=== PATIENT | male | born 1940 | race Caucasian/White ===

== ENCOUNTER 2017-03-29 10:45 | Inpatient (IN) | payer MEDICARE, BC, SELFPAY ==
[2017-03-29] VITALS (17 sets, daily range): BP systolic 78–136; BP diastolic 50–70; PULSE 68–94; RESP 16–26; TEMP 35.1–37.4; O2SAT 92–99; BMI 28.8; BMI 29.0
--- NOTE | 2017-03-29 11:08 | RAD_ITS ---
STUDY: X-RAY CHEST REASON FOR EXAM: Male, 76 years old. Shortness of breath, COPD, status post CABG TECHNIQUE: Single AP portable view of the chest. COMPARISON: Previous study of 12/17/2016 FINDINGS: cane flume watcher leads are present. The lungs are clear and expanded. There is no demonstrated pleural abnormality. Normal size heart. Status post sternotomy changes are present. Normal mediastinum and pepito. Normal visualized pulmonary arteries. There are calcified plaques of the aortic arch. Normal visualized thoracic spine. Normal visualized ribs, clavicles, and shoulders. There is no demonstrated abnormality of the visualized soft tissue structures of the upper abdomen. RAD/Chest 1 View (Portable) IMPRESSION: Status post sternotomy. Calcified plaques of the aortic arch. No acute cardiopulmonary disease process is seen. There has been complete interval resolution of the right lower lobe infiltrate noted on the previous study. Electronically Signed: Abrahan Graham MD at 12:47 EST , Service support ,
--- NOTE | 2017-03-29 11:08 | EKG12_ITS ---
Test Reason : SOB Blood Pressure : / mmHG Vent. Rate : 063 BPM Atrial Rate : 063 BPM P-R Int : 162 ms QRS Dur : 082 ms QT Int : 402 ms P-R-T Axes : 025 048 041 degrees QTc Int : 411 ms Sinus rhythm with Premature atrial complexes in a pattern of bigeminy Otherwise normal ECG Confirmed by MICHAEL SOTO, SALAZAR ([id number]), market editor DIONICIO BOUDREAUX ([id number]) on 03/31/2017 10:47:41 AM Referred By: CALE Confirmed By:SALAZAR RODRIGUEZ MD
[2017-03-29] MEDS: Ipratropium/Albuterol Sulfate 3 ML AMPUL.NEB INHALATION ×3 (11:39→19:45)
[2017-03-29] MEDS: 0.9% Normal Saline 1,000 ML 999 ML IV ×3 (11:40→12:52)
[2017-03-29 11:45] LABS: Absolute Lymphocyte Count 0.32 X10^3/ul (0.83-4.51); Absolute Neutrophil Count 4.6 X10^3/uL (2.0-7.7); Basophil# 0.01 X10^3/uL; Basophil% 0.2 % (0-1); Hematocrit 42.2 % (40-54); Hemoglobin 13.6 g/dl (13.0-16.5); Lymphocyte # 0.32 X10^3/ul (4.0); Lymphocyte % 5.9 % (19-41); Mean Corp Hgb Conc 32.2 g/gl (32-36); Mean Corpuscular Hgb 30.6 pg (27.0-32.0); Mean Corpuscular Volume 94.8 fL (80-94); Mean Platelet Vol. 8.9 fl (6.2-12.0); Monocyte# 0.52 X10^3/uL; Monocyte% 9.5 % (0-10); Neutrophil % 84.2 % (47-70); Platelet Count 153 K/mm3 (150-450); RBC Distribution Width CV 14.8 % (11.6-14.6); RBC Distribution Width SD 51.7 fl (35.1-43.9); Red Blood Count 4.45 M/mm3 (4.6-6.2); White Blood Count 5.5 K/mm3 (4.4-11.0)
[2017-03-29 11:46] LABS: POSITIVE COUNT NO; POSITIVE DIFFERENTIAL YES; POSITIVE MORPHOLOGY NO
[2017-03-29 11:47] LABS: Differential Indicated SCAN CRITERIA MET
[2017-03-29 11:56] LABS: ALB/GLOB Ratio 1.2 RATIO (0.9-2.4); AST(SGOT) 31 U/L (15-37); Alanine Aminotransfer ALT/SGPT 33 U/L (12-78); Albumin, Serum 3.8 g/dL (3.4-5.0); Alkaline Phosphatase 73 U/L (45-117); Anion Gap 11 (5-15); BUN 19 mg/dL (7-18); BUN/Creat Ratio 11.1 RATIO (10-20); Calcium,Total 8.7 mg/dL (8.5-10.1); Chloride 106 mmol/L (98-107); Creatinine, Serum 1.71 mg/dL (0.70-1.30); EST Glomerular Filtration Rate 42 mL/min (>60); Est Glom Filt Rate - Afr Amer 51 mL/min (>60); Estimated Creatinine Clearance 40.37 ml/min; Globulin 3.3 g/dL (2.2-4.2); Glucose 138 mg/dL (70-110); Protein, Total 7.1 g/dL (6.4-8.2); Sodium Level 140 mmol/L (136-145)
[2017-03-29 12:03] LABS: Lactic Acid 2.6 mmol/L (0.4-2.0)
[2017-03-29 12:04] LABS: Differential Comment SCANNED
[2017-03-29 12:58] LABS: International Normalized Ratio 1.1
[2017-03-29 12:59] LABS: Partial Thromboplast Time 32.1 Seconds (24.1-36.2)
--- NOTE | 2017-03-29 14:04 | PCM.HP.STD ---
Problem List (1) Hypotension Status: Acute Qualifiers: Hypotension type: unspecified hypotension type Qualified Code(s): I95.9 - Hypotension, unspecified (2) Benign essential HTN Status: Chronic (3) CAD (coronary artery disease) Status: Chronic Qualifiers: Associated angina: angina presence unspecified (4) HLD (hyperlipidemia) Status: Chronic Qualifiers: Hyperlipidemia type: unspecified Qualified Code(s): E78.5 - Hyperlipidemia, unspecified (5) Prostate CA Status: Chronic History of Present Illness Date of Admission: 03/29/17 Chief Complaint: Shortness of breath, cough The patient is a 76 year old M with PMHx of prostate Ca on immunotherapy, hypertension, CAD s/p CABG, COPD on 2L nocturnal oxygen comes in with complains of shortness of breath and cough ongoing for 3 days. Patient has been on some flu medications that he bought [id number]. He admits to feeling short of breath with exertion, denies any chest pain or dizziness or palpitations or fever but has chills. Denies any dysuria or frequency or rash. In the ED, patient's vitals show temperature of 95.2, blood pressure was 78/55 respiratory rate was 16, SPO2 was 94% on room air. He later on required 2 L of nasal cannula oxygen. at time of being examined, blood pressure was 112/59, he had received 3 L of fluid. Laboratory investigations show a CBC with WBC count of 5.5, Hb 13.6, platelets 153, sodium 140, potassium 4.0, chloride 106, bicarbonate 23, creatinine 1.71 in a patient with normal creatinine, BUN of 19. Chest x-ray showed no acute cardiopulmonary disease process. Past Medical History Past Medical History (Chronic Problems): Chronic Problems Benign essential HTN (Chronic) HLD (hyperlipidemia) (Chronic) CAD (coronary artery disease) (Chronic) Prostate CA (Chronic) Allergies isosorbide [From Imdur] Allergy (Verified 03/29/17 10:51) Other Home Medications: Ambulatory Orders Medication Instructions Recorded Aspirin [Aspirin, Baby] 81 mg PO DAILY@0800 12/29/14 Atorvastatin Calcium [Lipitor] 20 mg PO QHS 12/29/14 Lisinopril [Lisinopril] 1 mg PO DAILY 12/29/14 Lorazepam [Ativan] 1 mg PO TID PRN PRN 12/29/14 Metoprolol Tartrate [Metoprolol 25 mg PO 4X/DAY 12/29/14 Tartrate] Nitroglycerin [Nitrostat] 0.4 mg SL PRN PRN 12/29/14 Albuterol Inhaler [Ventolin Hfa 2 puff INHALATION Q4H PRN PRN 04/19/16 (SP)] Clopidogrel Bisulfate [Plavix] 75 mg PO DAILY 04/19/16 Budesonide/Formoterol 160/4.5 2 puff INHALATION DAILY 07/14/16 [Symbicort 160/4.5 Mcg Inhaler (SP)] Surgical History: cataract, coronary bypass surgery Psychiatric History: No pertinent psych hx Lives: Spouse/ Significant Other Smoking Status: Former smoker Tobacco Use: Non-smoker Alcohol: None Drugs: None - *Family History Maternal History Items: Diabetes Review of Systems Constitutional: Reports: Chills, Weakness. Denies: Fever, Night Sweats, Weight Change Eyes: Denies: Blurred vision, Cataracts, Conjunctivae Inflammation, Double vision HEENT: Denies: Difficulty Hearing, Difficulty Swallowing, Head Aches, Hearing Changes, Nasal bleeding, Sinus Drainage, Sore Throat Cardiovascular: Denies: Chest Pain, Claudication, Chest Pressure, Orthopnea, Palpitations, Paroxysmal Noc. Dyspnea Respiratory: Denies: Cough, Hemoptysis, Pleuritic Pain, Shortness of breath upon exertion, Sputum production Gastrointestinal: Reports: Diarrhea - one episode in the ED. Denies: Abdominal Pain, Constipation, Hematemesis, Hematochezia, Vomiting Genitourinary: Denies: Dysuria, Frequency, Hematuria Musculoskeletal: Denies: Joint stiffness, Joint swelling, Joint Tenderness Skin: Denies: Dryness Neurological: Denies: Difficulty swallowing, Focal weakness Psychiatric: Denies: Anxiety, Depression Endocrine: Denies: Change in Body Habitus, Heat/ Cold Intolerance VTE Information - Inpt Only VTE Present on Admission: No VTE Pharm Prophylaxis ordered?: Yes Patient Problems: Active and Suspected Problems Hypotension (Acute) - Physical Exam General: Alert, Oriented x3, Cooperative, - - Obese, comfortable, lying flat HEENT: Atraumatic, PERRLA, EOMI, Normocephalic Oral: Dry Mucosa Neck: Supple Lungs: Normal air movement, Diminished, - - Barrell-shaped chest, No wheezes heard Cardiovascular: Regular rate, Regular Rhythm, Normal S1, Normal S2, No murmurs Abdomen: Bowel Sounds Present, Soft, Non Tender, Non-Distended, No Hepato-splenomegaly Extremities: No edema Skin: No rashes, No breakdown Musculoskeletal: No Tenderness to Palpation of Joints or Extremities Neurological: Cranial nerves II-XII grossly intact Psych/Mental Status: Normal Affect, Appropriate Vital Signs Temp Pulse Resp BP Pulse Ox 96.2 F L 76 18 97/67 97 03/29/17 12:46 03/29/17 14:00 03/29/17 14:00 03/29/17 14:00 03/29/17 14:00 Oxygen Flow Rate 2 Oxygen Delivery Method Room Air Weight: 93.894 kg Body Mass Index (BMI) 28.8 Laboratory Tests Past 24 Hrs 03/29/17 03/29/17 03/29/17 11:30 11:30 11:30 WBC 5.5 RBC 4.45 L Hgb 13.6 Hct 42.2 MCV 94.8 H MCH 30.6 MCHC 32.2 RDW 14.8 H RDW Differential 51.7 H Plt Count 153 MPV 8.9 Immature Gran % (Auto) 0.200 Neut % (Auto) 84.2 H Lymph % (Auto) 5.9 L [place] % (Auto) 9.5 Eos % (Auto) 0.0 Baso % (Auto) 0.2 Absolute Neuts (auto) 4.6 Absolute Lymphs (auto) 0.32 L Total Counted Not Reportable Differential Comment SCANNED PT Cancelled INR Cancelled APTT Cancelled Sodium 140 Potassium 4.0 Chloride 106 Carbon Dioxide 23.0 Anion Gap 11 BUN 19 H Creatinine 1.71 H Estim Creat Clear Calc 40.37 Est GFR (MDRD) Af Amer 51 L Est GFR (MDRD) Non-Af 42 L BUN/Creatinine Ratio 11.1 Glucose 138 H Lactic Acid Calcium 8.7 Total Bilirubin 0.50 AST 31 ALT 33 Alkaline Phosphatase 73 Troponin I Total Protein 7.1 Albumin 3.8 Globulin 3.3 Albumin/Globulin Ratio 1.2 03/29/17 03/29/17 03/29/17 11:30 11:30 12:45 WBC RBC Hgb Hct MCV MCH MCHC RDW RDW Differential Plt Count MPV Immature Gran % (Auto) Neut % (Auto) Lymph % (Auto) [place] % (Auto) Eos % (Auto) Baso % (Auto) Absolute Neuts (auto) Absolute Lymphs (auto) Total Counted Differential Comment PT 14.0 INR 1.1 APTT 32.1 Sodium Potassium Chloride Carbon Dioxide Anion Gap BUN Creatinine Estim Creat Clear Calc Est GFR (MDRD) Af Amer Est GFR (MDRD) Non-Af BUN/Creatinine Ratio Glucose Lactic Acid 2.6 H Calcium Total Bilirubin AST ALT Alkaline Phosphatase Troponin I < 0.02 Total Protein Albumin Globulin Albumin/Globulin Ratio Assessment/Plan Active and Suspected Problems Hypotension (Acute) 6 year old M with PMHx of prostate Ca on immunotherapy, hypertension, CAD s/p CABG, COPD on 2L nocturnal oxygen comes in with complains of shortness of breath and cough ongoing for 3 days. Vitals in the ED show blood pressure of 78/55, responsive to IV fluids. Patient denies any diarrhea or vomiting but has had one episode of diarrhea in the ED. 1. Shock, unclear etiology, likely related to dehydration, patient admitted to the ED with blood pressure 78/55, asymptomatic, improved to more than 110 with IV fluids, lactic acid is 2.6, no sirs criteria, unclear source of infection, EKG shows no acute ST-T changes, Plan: Admit to PCU, continue on IV fluids, monitor strict I's and O's, hold home blood pressure medications, continue to evaluate on telemetry, trend troponins, blood cultures pending 2. Acute COPD exacerbation, in a patient with known COPD on 2 L nocturnal oxygen, chest x-ray was negative for any acute cardiopulmonary process would start patient on breathing treatments with IV steroids and also ceftriaxone and azithromycin, will de-escalate antibiotics and patient continues to improve Influenza screen as well as respiratory panel screen. 3. Hypertension now hypotensive, will hold home blood pressure medication( Lisinopril, metoprolol), will continue to monitor and resume blood pressure medications when blood pressure improves 4. CAD status post CABG 17 years ago, on aspirin, statin, Plavix, lisinopril, follows with Dr. Canales in the outpatient 5. Anxiety disorder, on Lorazepam tid 6. Prostate cancer, on immunotherapy, following up with oncology in the outpatient, [facility] 7. DVT prophylaxis with heparin subcu 8. 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
[2017-03-29] MEDS: 0.45% Normal Saline 1,000 ML 150 ML IV (15:15)
--- NOTE | 2017-03-29 15:33 | ED.VISSUMM ---
- ER Visit Summary Date of Service: 03/29/17 Chief Complaint: Shortness of breath History of Present Illness: The patient is a 76 M who states that since Thursday he has had a progressive shortness of breath/dyspnea on exertion. He notes cough with sputum production. He states he is having a COPD flare. No fevers. No vomiting or diarrhea. No body aches. No headache. No URI symptoms. She has a history of COPD and coronary artery disease having had a CABG in the year 1999. He has had no chest pain. No palpitations. Physical Examination: Temperature 95.2 heart rate 75 respirations are 26 pulse ox is 94% on room air blood pressure 84/59 Gen: Well-nourished well-developed Head: Normocephalic atraumatic Eyes: Perrl EOMI ENT: TMs clear no rhinorrhea moist mucous membranes Neck: Supple no lymphadenopathy no JVD nontender CVS: Regular rate rhythm no murmurs normal S1-S2 Respiratory: Tachypnea clear to auscultation bilaterally chest nontender Abdomen: Soft nontender nondistended normal bowel sounds no masses Back: Nontender Extremity: Nontender no edema Skin: Normal color no rash Neuro: alert orientated ?3 CN II-XII intact normal strength sensation reflexes gait cerebellar Psych: Normal affect normal mood Test Results: CBC CMP with a creatinine 1.71. Lactic acid 2.6. EKG is sinus with a rate of 63. Chest x-ray negative. Emergency Department Course and Treatment: Patient is received IV fluids and his blood pressure is somewhat improved. Still tenuous. Shortly after his arrival in the emergency room he had diarrhea has not had any since. Plan is admission with continued IV fluids. After DuoNeb he is no longer short of breath. His lung sounds remain clear. I do not think he has pulmonary embolism. After 3 days he has never had any pain. I do not think that this is cardiac in nature. Impression: 1. Hypertension 2. Acute kidney injury 3. Elevated lactate This note was generated with [employer] dictation software. It may contain incorrect words, spelling, and punctuation that were not noted in review of the chart prior to signing ED Disposition - Plan for ED Patient: Disposition: Acute Care [facility] Chief Complaint: Shortness of Breath
[2017-03-29 15:36] LABS: Reflex Lactate? Y
[2017-03-29 16:22] LABS: Bacteria 0 SEEN /hpf (None Seen); Color, Urine Yellow (Yellow); Glucose, Dipstick Normal (Normal); Ketone-Dipstick Negative (Negative); Leukocyte Esterase-Dipstick Negative /ul (Negative); Mucous, Urine 0 SEEN /hpf (<or=2+); Nitrite-Dipstick Negative (Negative); Occult Blood-Urine 25 /ul (Negative); Protein-Dipstick 30 mg/dl (Negative); Urine Bilirubin Dipstick Negative (Negative); Urine Clarity Clear (Clear); Urine Urobilinogen Normal (Normal)
[2017-03-29 16:30] LABS: Red Blood Cells-Urine 0-5 SEEN /hpf (0-5); Squamous Epithelial Cells - UA 0-5 SEEN /hpf (0-5); White Blood Cells 0-5 SEEN /hpf (0-5)
[2017-03-29 16:31] LABS: Hyaline Cast 10-25 SEEN /lpf (0-5)
[2017-03-29 16:36] LABS: Lactic Acid 1.5 mmol/L (0.4-2.0)
[2017-03-29] MEDS: Atorvastatin Calcium 20 MG Tablet PO (21:22)
[2017-03-29] MEDS: Aspirin 81 MG TAB.CHEW PO (21:23)
[2017-03-29] MEDS: Clopidogrel Bisulfate 75 MG Tablet PO (21:23)
[2017-03-30] VITALS (14 sets, daily range): BP systolic 93–146; BP diastolic 62–88; PULSE 67–104; RESP 16–22; TEMP 36.4–37.1; O2SAT 94–96
[2017-03-30 02:02] LABS: Hemoglobin 11.8 g/dl (13.0-16.5); Mean Corp Hgb Conc 32.8 g/gl (32-36); Mean Corpuscular Hgb 31.3 pg (27.0-32.0); Mean Corpuscular Volume 95.5 fL (80-94); Mean Platelet Vol. 8.6 fl (6.2-12.0); Platelet Count 117 K/mm3 (150-450); RBC Distribution Width CV 14.8 % (11.6-14.6); RBC Distribution Width SD 49.3 fl (35.1-43.9); Red Blood Count 3.77 M/mm3 (4.6-6.2); White Blood Count 2.4 K/mm3 (4.4-11.0)
[2017-03-30 02:11] LABS: Scan Indicated on CBC? Y/N NO
[2017-03-30 02:33] LABS: Anion Gap 9 (5-15); BUN 18 mg/dL (7-18); BUN/Creat Ratio 15.8 RATIO (10-20); Calcium,Total 7.6 mg/dL (8.5-10.1); Chloride 110 mmol/L (98-107); Creatinine, Serum 1.14 mg/dL (0.70-1.30); EST Glomerular Filtration Rate 67 mL/min (>60); Est Glom Filt Rate - Afr Amer 81 mL/min (>60); Estimated Creatinine Clearance 60.55 ml/min; Glucose 155 mg/dL (70-110); Sodium Level 141 mmol/L (136-145)
[2017-03-30] MEDS: 0.9% NaCl Peripheral Flush Adult/Peds IV ×3 (06:07→14:58)
[2017-03-30] MEDS: Ipratropium/Albuterol Sulfate 3 ML AMPUL.NEB INHALATION ×4 (06:38→22:50)
--- NOTE | 2017-03-30 08:35 | CON.PCM_ITS ---
Problem List (1) COPD (chronic obstructive pulmonary disease) Status: Acute Qualifiers: COPD type: COPD with acute exacerbation Qualified Code(s): J44.1 - Chronic obstructive pulmonary disease with (acute) exacerbation (2) Influenza B Status: Acute (3) Benign essential HTN Status: Chronic (4) HLD (hyperlipidemia) Status: Chronic Qualifiers: Hyperlipidemia type: unspecified Qualified Code(s): E78.5 - Hyperlipidemia , unspecified (5) CAD (coronary artery disease) Status: Chronic Qualifiers: Associated angina: angina presence unspecified (6) Hypotension Status: Acute Qualifiers: Hypotension type: unspecified hypotension type Qualified Code(s): I95.9 - Hypotension, unspecified (7) Prostate CA Status: Chronic Reason for Consult Date of Consultation: 03/30/17 Reason for Consultation: hypotension History of Present Illness: The patient is a 76 year old M with past medical history as below and known to pulmonary clinic who presented to the emergency room at the request of Urgent Care with complaints of increased dyspnea on exertion and cough/congestion for the last 3-4 days. He wears chronic 2 L liters of oxygen at night, does use as needed throughout the day only when he is sick. Patient reports his symptoms and on Thursday evening with shaking chills. He denied any fevers, nausea, or vomiting. He has not had any nasal or sinus congestion or drainage from his nose. Patient reports explosive diarrhea all throughout yesterday, none since arrival. She thought maybe the diarrhea was due to taking too many OTC cold and cough medications. Patient hypotensive on arrival with a blood pressure 78/ 55, pulse 89, RR 16, temp 95.2?F per temporal artery, 94% on room air. Chest x- ray showed calcified plaques of the aortic arch, no acute cardiopulmonary disease process. Patient did later get somewhat hypoxic and was placed on 2 L of oxygen with good recovery of his saturations. The patient was given several liters of IV fluids with improvement in his blood pressure. Initial lab work showed normal white count of 5.5, hemoglobin 13.6, elevated neutrophils 84% and lymphocytes 5.9%. Coags were normal. Also had acute kidney injury with a BUN of 19 and creatinine 1.71, glucose 138, lactate elevated at 2.6 and repeat normal at 1.5. LFTs were normal. Cardiac enzymes have been negative. Urinalysis negative for infection, showed small amount of blood. Urine was sent for culture. Stool sent for C. difficile, which was negative. O&P and enteric panel are pending. Blood cultures are pending. Respiratory panel positive for influenza B. The patient was admitted to the progressive care unit for further management. He remains on 2 L of oxygen saturating at 94%. His blood pressure is improved to 138/84. He denies any significant dyspnea on exertion. Pulmonary function tests on 03/25/17 and irreversible severe large airways obstructive ventilatory defect with symmetric reduction in diffusing capacity, noted improvement compared to previous testing on 06/11/16 with significant improvement in DLCO and FEV1. Pulmonary exercise test was also performed on and showed some desaturations from 98% to as low as 93%, with no significant tachycardia. There is limitation to distance secondary to hip pain , he was able to ambulate 984 feet over the course of 6 minutes on room air with no assistive devices. Patient also participated in pulmonary rehab over the summer. Patient quit smoking about 17 years ago. 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 He has been compliant with his Symbicort at home and has been using albuterol nebulizers for the past few days with some improvement in his SOB. He denies any recent sick contacts and notes he takes precaution with avoiding people in public. He works out at the [employer] and sanitizes equipment before and after he uses it. His states he is always worried about getting sick. Past Medical History Past Medical History (Chronic Problems): Chronic Problems Benign essential HTN (Chronic) HLD (hyperlipidemia) (Chronic) CAD (coronary artery disease) (Chronic) Prostate CA (Chronic) Allergies isosorbide [From Imdur] Allergy (Verified 03/29/17 10:51) Other Home Medications: Ambulatory Orders Medication Instructions Recorded Aspirin [Aspirin, Baby] 81 mg PO DAILY@0800 12/29/14 Atorvastatin Calcium [Lipitor] 20 mg PO QHS 12/29/14 Lisinopril [Lisinopril] 1 mg PO DAILY 12/29/14 Lorazepam [Ativan] 1 mg PO TID PRN PRN 12/29/14 Metoprolol Tartrate [Metoprolol 25 mg PO 4X/DAY 12/29/14 Tartrate] Nitroglycerin [Nitrostat] 0.4 mg SL PRN PRN 12/29/14 Albuterol Inhaler [Ventolin Hfa 2 puff INHALATION Q4H PRN PRN 04/19/16 (SP)] Clopidogrel Bisulfate [Plavix] 75 mg PO DAILY 04/19/16 Budesonide/Formoterol 160/4.5 2 puff INHALATION DAILY 07/14/16 [Symbicort 160/4.5 Mcg Inhaler (SP)] Surgical History: cataract, coronary bypass surgery Psychiatric History: No pertinent psych hx Lives: Spouse/ Significant Other Smoking Status: Former smoker Tobacco Use: Non-smoker Alcohol: None Drugs: None - *Family History Maternal History Items: Diabetes Review of Systems Constitutional: Reports: Anorexia, Chills, Weakness, Weight Change - gain from prostate CA treatment, Fatigue. Denies: Fever, Night Sweats, Malaise Eyes: Denies: Vision Change HEENT: Reports: Post Nasal Drip. Denies: Difficulty Swallowing, Head Aches, Nasal bleeding, Nasal Congestion, Sinus Congestion, Sinus Drainage, Sore Throat Cardiovascular: Reports: Light Headedness - resolved. Denies: Chest Pain, Chest Tightness, Edema, Orthopnea, Palpitations, Paroxysmal Noc. Dyspnea, Syncope Respiratory: Reports: Cough, Shortness of breath upon exertion, Sputum production - white to yellow, Wheezing - occasional. Denies: Hemoptysis, Shortness of breath at rest Gastrointestinal: Reports: Diarrhea - resolved yesterday. Denies: Abdominal Pain, Constipation, Dyspepsia, Hematemesis, Hematochezia, Nausea, Melena, Vomiting Genitourinary: Reports: Frequency, Nocturia. Denies: Dysuria, Hematuria Musculoskeletal: Denies: Back Pain, Muscle pain, Neck Pain Skin: Denies: Pruritis, Rash, Wounds Neurological: Denies: Balance problems, Change in Speech, Confusion, Focal weakness, Numbness, Tingling, Tremor, Seizures Psychiatric: Denies: Anxiety, Depression, Suicidal Ideations Endocrine: Denies: Change in Body Habitus, Polydipsia, Polyuria Hematologic/ Lymphatic: Reports: Easy Bruising. Denies: Adenopathy, Anemia, Easy Bleeding, Hx of blood clot Patient Problems: Active and Suspected Problems Hypotension (Acute) COPD (chronic obstructive pulmonary disease) (Acute) Influenza B (Acute) Subjective: The patient was seen and examined, at bedside. Denies any current shortness of breath. His cough has significantly improved as well as his dyspnea on exertion. Patient has been receiving Solu-Medrol and antibiotics. He is saturating at 94% on 2 L. Reports his dizziness has resolved. He remains afebrile and hemodynamically stable. Respiratory panel just resulted for positive influenza B. Awaiting further infectious workup. Objective: Clinical Impression(s) from Imaging Studies Chest X-Ray 03/29/17 11:08 IMPRESSION: Status post sternotomy. Calcified plaques of the aortic arch. No acute cardiopulmonary disease process is seen. There has been complete interval resolution of the right lower lobe infiltrate noted on the previous study. Electronically Signed: Abrahan Graham MD at 12:47 EST , Service support , - Physical Exam General: Alert, Oriented x3, Cooperative, No apparent distress, Well developed, Well nourished HEENT: Atraumatic, Normocephalic Oral: Moist Mucosa, No Gingival or Mucosal Lesions/ Ulcerations Neck: Supple, No Nodes, Trachea Midline Lungs: - - diminished throughout, no appreciable rhonchi, wheezes, or rales. Cardiovascular: Regular rate, Regular Rhythm, Normal S1, Normal S2, No murmurs, No rub noted, No Gallop Abdomen: Bowel Sounds Present, Soft, Non Tender, Non-Distended, Obese Extremities: No clubbing, No cyanosis, No edema, Capillary Refill Less than 3 Seconds, No Calf Tenderness Skin: No rashes, No breakdown Musculoskeletal: No Tenderness to Palpation of Joints or Extremities Lymphatic: No Cervical, Supraclavicular, or Inguinal Adenopathy Neurological: Cranial nerves II-XII grossly intact, Neuro grossly intact, Motor Exam 5/5 strength throughout Psych/Mental Status: Alert and oriented to time, place, person, mood and affect Vital Signs Temp Pulse Resp BP Pulse Ox 98.7 F 85 22 H 93/62 95 03/30/17 03:05 03/30/17 06:55 03/30/17 06:38 03/30/17 03:05 03/30/17 06:38 Oxygen Flow Rate 2.5 Oxygen Delivery Method Nasal Cannula Weight: 210 lb 12.191 oz Body Mass Index (BMI) 29.0 Intake and Output for Last 24 Hours 03/28/17 03/29/17 03/30/17 23:59 23:59 23:59 Intake Total 378 / 378 1036 / 1036 Balance 378 / 378 1036 / 1036 Microbiology Past 72 Hours 03/29/17 16:05 C. difficile DNA Amplification - Final Stool 03/29/17 16:05 Stool Lactoferrin - Final Stool Laboratory Tests Past 24 Hrs 03/29/17 03/29/17 03/29/17 15:34 15:50 16:05 WBC RBC Hgb Hct MCV MCH MCHC RDW RDW Differential Plt Count MPV Sodium Potassium Chloride Carbon Dioxide Anion Gap BUN Creatinine Estim Creat Clear Calc Est GFR (MDRD) Af Amer Est GFR (MDRD) Non-Af BUN/Creatinine Ratio Glucose Lactic Acid 1.5 Calcium Troponin I < 0.02 Urine Color Yellow Urine Clarity Clear Urine pH 6.0 Ur Specific [place] 1.020 Urine Protein 30 H Urine Glucose (UA) Normal Urine Ketones Negative Urine Occult Blood 25 H Urine Nitrite Negative Urine Bilirubin Negative Urine Urobilinogen Normal Ur Leukocyte Esterase Negative Urine RBC 0-5 SEEN Urine WBC 0-5 SEEN Ur Squamous Epith Cells 0-5 SEEN Urine Bacteria 0 SEEN Hyaline Casts 10-25 SEEN Urine Mucus 0 SEEN 03/29/17 03/30/17 03/30/17 19:24 01:50 01:50 WBC 2.4 L RBC 3.77 L Hgb 11.8 L Hct 36.0 L MCV 95.5 H MCH 31.3 MCHC 32.8 RDW 14.8 H RDW Differential 49.3 H Plt Count 117 L MPV 8.6 Sodium 141 Potassium 4.0 Chloride 110 H Carbon Dioxide 22.0 Anion Gap 9 BUN 18 Creatinine 1.14 Estim Creat Clear Calc 60.55 Est GFR (MDRD) Af Amer 81 Est GFR (MDRD) Non-Af 67 BUN/Creatinine Ratio 15.8 Glucose 155 H Lactic Acid Calcium 7.6 L Troponin I < 0.02 Urine Color Urine Clarity Urine pH Ur Specific [place] Urine Protein Urine Glucose (UA) Urine Ketones Urine Occult Blood Urine Nitrite Urine Bilirubin Urine Urobilinogen Ur Leukocyte Esterase Urine RBC Urine WBC Ur Squamous Epith Cells Urine Bacteria Hyaline Casts Urine Mucus 03/30/17 01:50 WBC RBC Hgb Hct MCV MCH MCHC RDW RDW Differential Plt Count MPV Sodium Potassium Chloride Carbon Dioxide Anion Gap BUN Creatinine Estim Creat Clear Calc Est GFR (MDRD) Af Amer Est GFR (MDRD) Non-Af BUN/Creatinine Ratio Glucose Lactic Acid Calcium Troponin I < 0.02 Urine Color Urine Clarity Urine pH Ur Specific [place] Urine Protein Urine Glucose (UA) Urine Ketones Urine Occult Blood Urine Nitrite Urine Bilirubin Urine Urobilinogen Ur Leukocyte Esterase Urine RBC Urine WBC Ur Squamous Epith Cells Urine Bacteria Hyaline Casts Urine Mucus Assessment/Plan Active and Suspected Problems Hypotension (Acute) COPD (chronic obstructive pulmonary disease) (Acute) Influenza B (Acute) RECOMMENDATIONS 1. Wean oxygen supplementation to keep saturations greater than 89%. 2. Encourage incentive spirometer 3. Increase activity as tolerated 4. Continue Duoneb aerosols 5. Await infectious workup, discontinue antibiotics if negative 6. Ambulatory pulse ox prior to discharge 7. Follow-up in the pulmonary clinic in 2 weeks with ENCYCLOPEDIA RESEARCH WORKER upon discharge IMPRESSIONS 1. 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 Likely COPD exacerbation secondary to influenza, his wheezing and shortness of breath on exertion have improved with IV Solu-Medrol Steroids can likely be transitioned to oral in the morning. Continue antibiotics for now pending infectious workup, otherwise if negative can discontinue. 2. Hypotension Resolved with IV fluid resuscitation. He was orthostatic positive on admission. His blood pressure medications are being held, slowly reintroduce. 3. Chronic respiratory failure Baseline supplemental oxygen requirements of 2 L at night only. Had a recent 6 minute walking oximetry with no significant desaturations. Has been using as needed throughout the day for the last couple of days since he has been feeling ill. May require home oxygen during the day while acutely ill, patient should have a walking oximetry prior to discharge to assess for exertional hypoxia. He can follow-up in the pulmonary clinic in 2 weeks with the nurse practitioner. Thank you for the opportunity to participate in this patient's care, please do not hesitate to contact us with any further questions or concerns. This note was generated with [employer] software. It may contain incorrect words, spelling, and punctuation that were not noted in checking the note before signing.
[2017-03-30] MEDS: Aspirin 81 MG TAB.CHEW PO (09:49)
[2017-03-30] MEDS: Clopidogrel Bisulfate 75 MG Tablet PO (09:49)
--- NOTE | 2017-03-30 12:42 | PN_ITS ---
Patient Problems: Active and Suspected Problems Hypotension (Acute) COPD (chronic obstructive pulmonary disease) (Acute) Influenza B (Acute) Subjective: Chills continue. + productive cough. negative fever. SOB has improved. Uses 2lpm at home in the evening only. Has concentrator. Feels much less wheezy. - Physical Exam General: Alert, Oriented x3, Cooperative HEENT: Atraumatic, PERRLA, EOMI, Normocephalic Neck: Supple, No JVD, Negative Carotid Bruits Lungs: Clear to auscultation, Diminished - somewha Cardiovascular: Regular rate, No murmurs Abdomen: Bowel Sounds Present, Soft, Non Tender Extremities: No edema, Capillary Refill Less than 3 Seconds Skin: No rashes, No breakdown Musculoskeletal: No Tenderness to Palpation of Joints or Extremities Neurological: Cranial nerves II-XII grossly intact Psych/Mental Status: Normal Affect, Appropriate, Alert and oriented to time, place, person, mood and affect Vital Signs Temp Pulse Resp BP Pulse Ox 98 F 98 22 H 138/84 H 94 03/30/17 09:05 03/30/17 11:07 03/30/17 10:38 03/30/17 09:05 03/30/17 09:05 Oxygen Flow Rate 2 Oxygen Delivery Method Nasal Cannula Weight: 95.6 kg Body Mass Index (BMI) 29.0 Intake and Output for Last 24 Hours 03/28/17 03/29/17 03/30/17 23:59 23:59 23:59 Intake Total 378 / 378 1431 / 1431 Balance 378 / 378 1431 / 1431 Microbiology Past 72 Hours 03/29/17 15:15 Respiratory Panel (PCR) - Final Mucosa - Nasopharyngeal Influenzae B 03/29/17 16:05 C. difficile DNA Amplification - Final Stool 03/29/17 16:05 Stool Lactoferrin - Final Stool Laboratory Tests Past 24 Hrs 03/29/17 03/29/17 03/29/17 15:34 15:50 16:05 WBC RBC Hgb Hct MCV MCH MCHC RDW RDW Differential Plt Count MPV Sodium Potassium Chloride Carbon Dioxide Anion Gap BUN Creatinine Estim Creat Clear Calc Est GFR (MDRD) Af Amer Est GFR (MDRD) Non-Af BUN/Creatinine Ratio Glucose Lactic Acid 1.5 Calcium Troponin I < 0.02 Urine Color Yellow Urine Clarity Clear Urine pH 6.0 Ur Specific [place] 1.020 Urine Protein 30 H Urine Glucose (UA) Normal Urine Ketones Negative Urine Occult Blood 25 H Urine Nitrite Negative Urine Bilirubin Negative Urine Urobilinogen Normal Ur Leukocyte Esterase Negative Urine RBC 0-5 SEEN Urine WBC 0-5 SEEN Ur Squamous Epith Cells 0-5 SEEN Urine Bacteria 0 SEEN Hyaline Casts 10-25 SEEN Urine Mucus 0 SEEN 03/29/17 03/30/17 03/30/17 19:24 01:50 01:50 WBC 2.4 L RBC 3.77 L Hgb 11.8 L Hct 36.0 L MCV 95.5 H MCH 31.3 MCHC 32.8 RDW 14.8 H RDW Differential 49.3 H Plt Count 117 L MPV 8.6 Sodium 141 Potassium 4.0 Chloride 110 H Carbon Dioxide 22.0 Anion Gap 9 BUN 18 Creatinine 1.14 Estim Creat Clear Calc 60.55 Est GFR (MDRD) Af Amer 81 Est GFR (MDRD) Non-Af 67 BUN/Creatinine Ratio 15.8 Glucose 155 H Lactic Acid Calcium 7.6 L Troponin I < 0.02 Urine Color Urine Clarity Urine pH Ur Specific [place] Urine Protein Urine Glucose (UA) Urine Ketones Urine Occult Blood Urine Nitrite Urine Bilirubin Urine Urobilinogen Ur Leukocyte Esterase Urine RBC Urine WBC Ur Squamous Epith Cells Urine Bacteria Hyaline Casts Urine Mucus 03/30/17 01:50 WBC RBC Hgb Hct MCV MCH MCHC RDW RDW Differential Plt Count MPV Sodium Potassium Chloride Carbon Dioxide Anion Gap BUN Creatinine Estim Creat Clear Calc Est GFR (MDRD) Af Amer Est GFR (MDRD) Non-Af BUN/Creatinine Ratio Glucose Lactic Acid Calcium Troponin I < 0.02 Urine Color Urine Clarity Urine pH Ur Specific [place] Urine Protein Urine Glucose (UA) Urine Ketones Urine Occult Blood Urine Nitrite Urine Bilirubin Urine Urobilinogen Ur Leukocyte Esterase Urine RBC Urine WBC Ur Squamous Epith Cells Urine Bacteria Hyaline Casts Urine Mucus Assessment/Plan Active and Suspected Problems Hypotension (Acute) COPD (chronic obstructive pulmonary disease) (Acute) Influenza B (Acute) 1. Acute COPD exacerbation 2/2 Acute influenza B - start tamiflu. Continue aerosols and solumedrol. Pt significantly improved and lungs clear this AM. Will maintain abx as WBC are low. CXR without acute infiltrate. Check urine antigens. Will attempt to wean O2 and obtain ambulatory pulse ox. Pulm is following - pt of dr. Calvillo. 2. Acute sepsis 2/2 above present on admission- resolved. Pt was hypotensive, with elevated lactate and tachypnea at admission. plan to resume blood pressure meds tomorrow as his hypotension has resolved. 3. Chronic resp failure - on 2 lpm at night at home 4. HTN - stable, resume home meds tomorrow 5. CAD - s/p CABG, asa, statin, plavix currently. Pt of Dr. Whitmore 6. Anxiety - ativan 7. Hx prostate ca - on immunotherapy DVT ppx: heparin DC planning: may need increased home O2 at dc. already has concentrator. If improved tomorrow will go home. This patient was seen by Mati Nieto PA-C under the supervision of Doctor Tita.
--- NOTE | 2017-03-30 14:30 | CASEMGMT ---
See Assessment Link. DC Plan: home on dc -may need home oxygen testing and if O2 needed continuous on dc, will need to be sure pt has portable concentrator functioning well. Pt's to take to [facility] to check. Vincent WASSERMANN RN ACM
[2017-03-30] MEDS: Oseltamivir Phosphate 75 MG Capsule PO (14:58)
[2017-03-30] MEDS: Atorvastatin Calcium 20 MG Tablet PO (21:07)
[2017-03-30] MEDS: guaiFENesin 1,200 MG Tablet 1200 MG PO (21:07)
[2017-03-31] VITALS (12 sets, daily range): BP systolic 131–148; BP diastolic 80–93; PULSE 84–114; RESP 18–20; TEMP 36.6–36.8; O2SAT 87–95
[2017-03-31] MEDS: Ipratropium/Albuterol Sulfate 3 ML AMPUL.NEB INHALATION ×3 (03:00→11:05)
[2017-03-31 06:49] LABS: Absolute Neutrophil Count 2.2 X10^3/uL (2.0-7.7); Hematocrit 38.6 % (40-54); Hemoglobin 12.7 g/dl (13.0-16.5); Mean Corp Hgb Conc 32.9 g/gl (32-36); Mean Corpuscular Hgb 31.1 pg (27.0-32.0); Mean Corpuscular Volume 94.6 fL (80-94); Mean Platelet Vol. 9.2 fl (6.2-12.0); Monocyte# 0.21 X10^3/uL; Monocyte% 7.7 % (0-10); Neutrophil # 2.21 X10^3/uL (2.7-7.7); Neutrophil % 81.3 % (47-70); Platelet Count 143 K/mm3 (150-450); RBC Distribution Width CV 14.2 % (11.6-14.6); RBC Distribution Width SD 46.9 fl (35.1-43.9); Red Blood Count 4.08 M/mm3 (4.6-6.2); White Blood Count 2.7 K/mm3 (4.4-11.0)
[2017-03-31 06:51] LABS: Differential Indicated SCAN CRITERIA MET; POSITIVE COUNT NO; POSITIVE DIFFERENTIAL YES; POSITIVE MORPHOLOGY NO
[2017-03-31 06:54] LABS: Anion Gap 9 (5-15); BUN 25 mg/dL (7-18); BUN/Creat Ratio 22.7 RATIO (10-20); Calcium,Total 8.3 mg/dL (8.5-10.1); Chloride 107 mmol/L (98-107); EST Glomerular Filtration Rate 69 mL/min (>60); Est Glom Filt Rate - Afr Amer 84 mL/min (>60); Estimated Creatinine Clearance 62.75 ml/min; Glucose 147 mg/dL (70-110); Potassium 3.7 mmol/L (3.5-5.1); Sodium Level 140 mmol/L (136-145)
--- NOTE | 2017-03-31 09:08 | PCM.PROGNOTE ---
Patient Problems: Active and Suspected Problems Hypotension (Acute) COPD (chronic obstructive pulmonary disease) (Acute) Influenza B (Acute) Subjective: Patient was seen and examined, no acute events overnight. He is maintaining appropriate saturations on room air. Remains afebrile and hemodynamically stable. Reports his breathing is somewhat improved. He is still feeling weak but has been getting up to the bathroom without any dizziness or severe weakness in his legs. He is using his incentive spirometer 2-4 times per day, encouraged once every hour. Orthostatic negative, blood pressure improved. - Physical Exam General: Alert, Oriented x3, Cooperative, No apparent distress, - - Mild conversational dyspnea HEENT: Atraumatic, Normocephalic Oral: Moist Mucosa, No Gingival or Mucosal Lesions/ Ulcerations Neck: Supple, No Nodes, Trachea Midline Lungs: Diminished, - - Bibasilar rales. No appreciable wheezes or rhonchi. Cardiovascular: Regular rate, Regular Rhythm, Normal S1, Normal S2 Abdomen: Bowel Sounds Present, Soft, Non Tender, Non-Distended Extremities: No clubbing, No cyanosis, No edema Skin: No rashes, No breakdown Musculoskeletal: No Tenderness to Palpation of Joints or Extremities Lymphatic: No Cervical, Supraclavicular, or Inguinal Adenopathy Neurological: Neuro grossly intact Psych/Mental Status: Alert and oriented to time, place, person, mood and affect Vital Signs Temp Pulse Resp BP Pulse Ox 97.8 F 114 H 20 H 148/93 H 95 03/31/17 06:40 03/31/17 06:56 03/31/17 06:40 03/31/17 06:40 03/31/17 06:40 Oxygen Flow Rate 2 Oxygen Delivery Method Nasal Cannula Weight: 201 lb 15.095 oz Body Mass Index (BMI) 29.0 Orthostatic Vital Signs Start: 03/31/17 06:34 Freq: q24h Status: Active Protocol: Activity Type Activity Date Activity User E-Sign Co-Sign Detail Recorded Client Recorded Date Recorded By Document 03/31/17 06:34 [facility] [id number] 03/31/17 06:39 NORMA 03/31/17 06:34 Orthostatic Vitals Sitting -Blood Pressure (90/60-120/80) 134/89 H -Extremity Use Left Arm -Pulse Rate (60-100) 102 H Standing -Blood Pressure (90/60-120/80) 131/82 H -Extremity Use Left Arm -Pulse Rate (60-100) 110 H Lying -Blood Pressure (90/60-120/80) 148/93 H -Extremity Use Left Arm -Pulse Rate (60-100) 92 Intake and Output for Last 24 Hours 03/29/17 03/30/17 03/31/17 23:59 23:59 23:59 Intake Total 378 / 378 1671 / 1671 240 / 240 Balance 378 / 378 1671 / 1671 240 / 240 Microbiology Past 72 Hours 03/31/17 03:15 Legionella Antigen - Final Urine, Clean Catch 03/31/17 03:15 Streptococcus pneumoniae Antigen (M - Final Urine, Clean Catch 03/29/17 16:05 Enteric Bacteriology - Final Stool 03/29/17 16:05 Urine Culture - Preliminary Urine, Clean Catch Culture exhibits no growth. 03/29/17 15:15 Respiratory Panel (PCR) - Final Mucosa - Nasopharyngeal Influenzae B 03/29/17 16:05 C. difficile DNA Amplification - Final Stool 03/29/17 16:05 Stool Lactoferrin - Final Stool Laboratory Tests Past 24 Hrs 03/31/17 03/31/17 05:40 05:40 WBC 2.7 L RBC 4.08 L Hgb 12.7 L Hct 38.6 L MCV 94.6 H MCH 31.1 MCHC 32.9 RDW 14.2 RDW Differential 46.9 H Plt Count 143 L MPV 9.2 Immature Gran % (Auto) 0.000 Neut % (Auto) 81.3 H Lymph % (Auto) 11.0 L [place] % (Auto) 7.7 Eos % (Auto) 0.0 Baso % (Auto) 0.0 Absolute Neuts (auto) 2.2 Absolute Lymphs (auto) 0.30 L Total Counted Not Reportable Sodium 140 Potassium 3.7 Chloride 107 Carbon Dioxide 24.0 Anion Gap 9 BUN 25 H Creatinine 1.10 Estim Creat Clear Calc 62.75 Est GFR (MDRD) Af Amer 84 Est GFR (MDRD) Non-Af 69 BUN/Creatinine Ratio 22.7 H Glucose 147 H Calcium 8.3 L Assessment/Plan Active and Suspected Problems Hypotension (Acute) COPD (chronic obstructive pulmonary disease) (Acute) Influenza B (Acute) RECOMMENDATIONS 1. Wean oxygen supplementation to keep saturations greater than 89%. 2. Encourage incentive spirometer 3. Increase activity as tolerated 4. Continue Duoneb aerosols 5. Restart antihypertensives 6. Continue oral steroids, 12 day taper at d/c 7. Ambulatory pulse ox prior to discharge 8. Follow-up in the pulmonary clinic in 2 weeks with PATIENT ACCESS REGISTRAR upon discharge 9. Okay to discharge from pulmonary standpoint IMPRESSIONS 1. Acute hypoxic respiratory insufficiency secondary to COPD exacerbation secondary to influenza B Chest x-ray no acute process. Patient with irreversible severe large airways obstructive ventilatory defect per pulmonary function test on 03/29/17 with some noted improvement in DLCO and FEV1. Likely COPD exacerbation secondary to influenza, his wheezing and shortness of breath on exertion have improved with IV Solu-Medrol, he was transitioned to oral 03/31. Antibiotics have been discontinued. Will need 12 day taper of prednisone at discharge. 2. Hypotension/HARVEY Resolved with IV fluid resuscitation. He was orthostatic positive on admission, recheck today were negative but he did have some mild tachycardia. His blood pressure medications are being held, would restart today as BPs are now elevated for 24 hours. Notes he takes his metoprolol in 4 divided doses as he tolerates it better that way. Unsure of total dose. Management per hospitalist. 3. Chronic respiratory failure Baseline supplemental oxygen requirements of 2 L at night only. Had a recent 6 minute walking oximetry with no significant desaturations. May require home oxygen during the day while acutely ill, patient should have a walking oximetry prior to discharge to assess for exertional hypoxia. He can follow-up in the pulmonary clinic in 2 weeks with the nurse practitioner. This note was generated with [email or web address] dictation software. It may contain incorrect words, spelling, and punctuation that were not noted in checking the note before signing.
[2017-03-31] MEDS: Aspirin 81 MG TAB.CHEW PO (09:31)
[2017-03-31] MEDS: guaiFENesin 1,200 MG Tablet 1200 MG PO (09:31)
[2017-03-31] MEDS: Clopidogrel Bisulfate 75 MG Tablet PO (09:31)
--- NOTE | 2017-03-31 09:49 | PN_ITS ---
Patient Problems: Active and Suspected Problems Hypotension (Acute) COPD (chronic obstructive pulmonary disease) (Acute) Influenza B (Acute) Subjective: Patient was seen and examined, no acute events overnight. He is maintaining appropriate saturations on room air. Remains afebrile and hemodynamically stable. Reports his breathing is somewhat improved. He is still feeling weak but has been getting up to the bathroom without any dizziness or severe weakness in his legs. He is using his incentive spirometer 2-4 times per day, encouraged once every hour. Orthostatic negative, blood pressure improved. - Physical Exam General: Alert, Oriented x3, Cooperative, No apparent distress, - - Mild conversational dyspnea HEENT: Atraumatic, Normocephalic Oral: Moist Mucosa, No Gingival or Mucosal Lesions/ Ulcerations Neck: Supple, No Nodes, Trachea Midline Lungs: Diminished, - - Bibasilar rales. No appreciable wheezes or rhonchi. Cardiovascular: Regular rate, Regular Rhythm, Normal S1, Normal S2 Abdomen: Bowel Sounds Present, Soft, Non Tender, Non-Distended Extremities: No clubbing, No cyanosis, No edema Skin: No rashes, No breakdown Musculoskeletal: No Tenderness to Palpation of Joints or Extremities Lymphatic: No Cervical, Supraclavicular, or Inguinal Adenopathy Neurological: Neuro grossly intact Psych/Mental Status: Alert and oriented to time, place, person, mood and affect Vital Signs Temp Pulse Resp BP Pulse Ox 97.8 F 114 H 20 H 148/93 H 95 03/31/17 06:40 03/31/17 06:56 03/31/17 06:40 03/31/17 06:40 03/31/17 06:40 Oxygen Flow Rate 2 Oxygen Delivery Method Nasal Cannula Weight: 201 lb 15.095 oz Body Mass Index (BMI) 29.0 Orthostatic Vital Signs Start: 03/31/17 06:34 Freq: q24h Status: Active Protocol: Activity Type Activity Date Activity User E-Sign Co-Sign Detail Recorded Client Recorded Date Recorded By Document 03/31/17 06:34 [facility] [id number] 03/31/17 06:39 NORMA 03/31/17 06:34 Orthostatic Vitals Sitting -Blood Pressure (90/60-120/80) 134/89 H -Extremity Use Left Arm -Pulse Rate (60-100) 102 H Standing -Blood Pressure (90/60-120/80) 131/82 H -Extremity Use Left Arm -Pulse Rate (60-100) 110 H Lying -Blood Pressure (90/60-120/80) 148/93 H -Extremity Use Left Arm -Pulse Rate (60-100) 92 Intake and Output for Last 24 Hours 03/29/17 03/30/17 03/31/17 23:59 23:59 23:59 Intake Total 378 / 378 1671 / 1671 240 / 240 Balance 378 / 378 1671 / 1671 240 / 240 Microbiology Past 72 Hours 03/31/17 03:15 Legionella Antigen - Final Urine, Clean Catch 03/31/17 03:15 Streptococcus pneumoniae Antigen (M - Final Urine, Clean Catch 03/29/17 16:05 Enteric Bacteriology - Final Stool 03/29/17 16:05 Urine Culture - Preliminary Urine, Clean Catch Culture exhibits no growth. 03/29/17 15:15 Respiratory Panel (PCR) - Final Mucosa - Nasopharyngeal Influenzae B 03/29/17 16:05 C. difficile DNA Amplification - Final Stool 03/29/17 16:05 Stool Lactoferrin - Final Stool Laboratory Tests Past 24 Hrs 03/31/17 03/31/17 05:40 05:40 WBC 2.7 L RBC 4.08 L Hgb 12.7 L Hct 38.6 L MCV 94.6 H MCH 31.1 MCHC 32.9 RDW 14.2 RDW Differential 46.9 H Plt Count 143 L MPV 9.2 Immature Gran % (Auto) 0.000 Neut % (Auto) 81.3 H Lymph % (Auto) 11.[address] % (Auto) 7.7 Eos % (Auto) 0.0 Baso % (Auto) 0.0 Absolute Neuts (auto) 2.2 Absolute Lymphs (auto) 0.30 L Total Counted Not Reportable Sodium 140 Potassium 3.7 Chloride 107 Carbon Dioxide 24.0 Anion Gap 9 BUN 25 H Creatinine 1.10 Estim Creat Clear Calc 62.75 Est GFR (MDRD) Af Amer 84 Est GFR (MDRD) Non-Af 69 BUN/Creatinine Ratio 22.7 H Glucose 147 H Calcium 8.3 L Assessment/Plan Active and Suspected Problems Hypotension (Acute) COPD (chronic obstructive pulmonary disease) (Acute) Influenza B (Acute) RECOMMENDATIONS 1. Wean oxygen supplementation to keep saturations greater than 89%. 2. Encourage incentive spirometer 3. Increase activity as tolerated 4. Continue Duoneb aerosols 5. Restart antihypertensives 6. Continue oral steroids, 12 day taper at d/c 7. Ambulatory pulse ox prior to discharge 8. Follow-up in the pulmonary clinic in 2 weeks with DIALYSIS CHIEF EQUIPMENT TECHNICIAN upon discharge 9. Okay to discharge from pulmonary standpoint IMPRESSIONS 1. Acute hypoxic respiratory insufficiency secondary to COPD exacerbation secondary to influenza B Chest x-ray no acute process. Patient with irreversible severe large airways obstructive ventilatory defect per pulmonary function test on 03/29/17 with some noted improvement in DLCO and FEV1. Likely COPD exacerbation secondary to influenza, his wheezing and shortness of breath on exertion have improved with IV Solu-Medrol, he was transitioned to oral 03/31. Antibiotics have been discontinued. Will need 12 day taper of prednisone at discharge. 2. Hypotension/HARVEY Resolved with IV fluid resuscitation. He was orthostatic positive on admission , recheck today were negative but he did have some mild tachycardia. His blood pressure medications are being held, would restart today as BPs are now elevated for 24 hours. Notes he takes his metoprolol in 4 divided doses as he tolerates it better that way. Unsure of total dose. Management per hospitalist. 3. Chronic respiratory failure Baseline supplemental oxygen requirements of 2 L at night only. Had a recent 6 minute walking oximetry with no significant desaturations. May require home oxygen during the day while acutely ill, patient should have a walking oximetry prior to discharge to assess for exertional hypoxia. He can follow-up in the pulmonary clinic in 2 weeks with the nurse practitioner. This note was generated with [employer] dictation software. It may contain incorrect words, spelling, and punctuation that were not noted in checking the note before signing.
--- NOTE | 2017-03-31 10:00 | CASEMGMT ---
Per Salomon HOPE, pt to be home on increased oxygen. Per JOE notes, pt was on 2 liters at night only and no oxygen during day. New order for 2 liters with qualifying documentation faxed to [facility] [place] at this [place]. Spoke with Darleen at [facility] [place] and she states that pt already qualified for oxygen 24/7 months ago and states that pt has all the equipment he needs at home at this time. Amy SCHAFER aware, voices understanding. Pt to be discharged home. to bring pt's portable tank for pt to go home on. Cathie SCHAFER CM
--- NOTE | 2017-03-31 11:30 | PCM.DC ---
- Discharge Diagnoses Current Active Problems: Current Active and Chronic Problems Hypotension (Acute) Prostate CA (Chronic) COPD (chronic obstructive pulmonary disease) (Acute) Influenza B (Acute) You will use the following diet at home:: Cardiac Your food should be the consistency of: Regular Your liquids should be the consistency of: Regular/Thin Discharge Activity: Return to Normal Activity Allergies/Adverse Reactions: Allergies isosorbide [From Imdur] Allergy (Verified 03/29/17 10:51) Other Medications to take at Discharge Aspirin [Aspirin, Baby] 81 mg PO DAILY@0800 12/29/14 Atorvastatin Calcium [Lipitor] 20 mg PO QHS 12/29/14 Lisinopril 1 mg PO DAILY 12/29/14 Lorazepam [Ativan] 1 mg PO TID PRN PRN 12/29/14 Metoprolol Tartrate 25 mg PO 4X/DAY 12/29/14 Nitroglycerin [Nitrostat] 0.4 mg SL PRN PRN 12/29/14 Albuterol Inhaler [Ventolin Hfa] 2 puff INHALATION Q4H PRN PRN 04/19/16 Clopidogrel Bisulfate [Plavix] 75 mg PO DAILY 04/19/16 Budesonide/Formoterol 160/4.5 [Symbicort 160/4.5 Mcg Inhaler (SP)] 2 puff INHALATION DAILY 07/14/16 Prednisone 10 mg PO UD #26 tab 03/31/17 The following prescriptions were given: Prednisone 10 mg PO UD #26 tab Primary Care Physician: Dillan Cummins MD [Primary Care Provider] - Please follow up with your Primary Care Physician in: 2 weeks Please Follow Up With: Joshua Guadarrama MD - Keep your current April appointment with Dr. Guadarrama. When: as directed Proposed Discharge Date: 03/31/17
--- NOTE | 2017-03-31 18:11 | DS.PCM_ITS ---
Discharge Date and Diagnosis Date of Admission: 03/29/17 Date of Discharge: 03/31/17 - Primary Discharge Diagnosis Acute sepsis 2/2 acute influenza B bronchitis Acute hypoxia 2/2 acute COPD exacerbation 2/2 influenza B Chronic respiratory failure HTN CAD Anxiety Prostate cancer. - Secondary Discharge Diagnosis Chronic Problems Benign essential HTN (Chronic) HLD (hyperlipidemia) (Chronic) CAD (coronary artery disease) (Chronic) Prostate CA (Chronic) Hospital Course and Treatment Imaging Results: RAD/Chest 1 View (Portable) IMPRESSION: Status post sternotomy. Calcified plaques of the aortic arch. No acute cardiopulmonary disease process is seen. There has been complete interval resolution of the right lower lobe infiltrate noted on the previous study. Rajinder - Pulmonology Operations: None Procedures: None Summary of Care Provided: Physical exam on day of discharge: General: Resting comfortably NAD Psych: A/Ox3 normal affect HEENT: PEARRLA AT NC Neck: Supple NT CV: RRR no m/t/r/g/h Resp: CTA Abd: [id number] Soft NT no guarding or rigidity Ext: DP2+= no edema Skin: W/D normal turgor Lymph/Heme: No active bleeding or adenopathy Neuro: CN2-12 intact Hospital course: The patient is a 76 year old M who presents to the emergency room with increased shortness of breath, cough, wheezing for 3 days prior to admission. He has a history of COPD and is followed by Dr. Calvillo from pulmonology, he has a history of chronic hypoxic respiratory failure dependent on oxygen 2 L at night although notably is supposed to be also using during the day but he has not been. In the emergency room he was found to be hypotensive with systolic blood pressure in the 70s although this did respond to fluid resuscitation. He had an elevated lactic acid at 2.6, he is found to be very wheezy. Checks x- ray revealed no acute process. He is felt to have a COPD exacerbation. A rapid influenza screen was done did demonstrate influenza B. With hypotension, elevated lactate, pulse greater than 90, tachypnea, and source of infection being influenza B bronchitis he was admitted with acute sepsis secondary to influenza B with hypoxia and COPD exacerbation. He was placed on steroids. Initially he was placed on antibiotics. These were discontinued the following day as no bacterial process was suspected. The following day the patient had clear lungs, decreased wheezing, decreased oxygen demand, he remained stable on 2 L. Tamiflu was initially started however discontinued as his symptoms have been going on for about 3 days prior and pulmonology did not feel there be any benefit. Pulmonology followed the patient while here. He was transitioned to PO prednisone and given a tapering course. He was walked and determined to need further O2 requirements than just at night, and would need O2 during the day and with ambulation. This was arranged, and he already had a portable tank and concentrator. He also has a nebulizer with and his had filled a new script for aerosols for it the morning of discharge. He was discharged home in stable condition will need to keep his follow-up appointment with Dr. Calvillo in pulmonary clinic. He is also follow-up with his PCP in 1-2 weeks. He will complete his steroid taper and continue his home aerosols. This patient was seen by Mati Nieto PA-C under the supervision of Doctor Tita. Discharge Diet: Low fat/ Low Cholesterol, 4000 mg Sodium Diet Discharge Activity: Return to Normal Activity Home Medications: Medications to take at Discharge Aspirin [Aspirin, Baby] 81 mg PO DAILY@0800 12/29/14 Atorvastatin Calcium [Lipitor] 20 mg PO QHS 12/29/14 Lisinopril 1 mg PO DAILY 12/29/14 Lorazepam [Ativan] 1 mg PO TID PRN PRN 12/29/14 Metoprolol Tartrate 25 mg PO 4X/DAY 12/29/14 Nitroglycerin [Nitrostat] 0.4 mg SL PRN PRN 12/29/14 Albuterol Inhaler [Ventolin Hfa] 2 puff INHALATION Q4H PRN PRN 04/19/16 Clopidogrel Bisulfate [Plavix] 75 mg PO DAILY 04/19/16 Budesonide/Formoterol 160/4.5 [Symbicort 160/4.5 Mcg Inhaler (SP)] 2 puff INHALATION DAILY 07/14/16 Prednisone 10 mg PO UD #26 tab 03/31/17 Following Prescrptions Were Given to Patient: Prednisone 10 mg PO UD #26 tab Primary Care Physician: Dillan Cummins MD [Primary Care Provider] - Please follow up with your Primary Care Physician in: 2 weeks Please Follow Up With: Yong Calvillo, DO When: as directed Please Follow Up With: Dillan Cummins MD Disposition: Home Minutes spent on discharge:: 35 Patient Condition:: Stable Meaningful Use Info Meaningful Use Diagnoses (Choose all that apply): None applicable
== END 2017-03-31 13:43 | disposition home or self-care (01) | DRG 871 ==
LOC: ED 14:25 → PCU 14:48
PROVIDERS: Physician Assistant; Admitting Provider Internal Medicine; Emergency Provider Emergency Medicine; Family Provider Family Medicine; PCP Family Medicine; Visit Provider Family Medicine
DX: A41.9 Sepsis, unspecified organism (principal); J96.21 Acute and chronic respiratory failure with hypoxia; N17.9 Acute kidney failure, unspecified; J44.1 Chronic obstructive pulmonary disease with (acute) exacerbation; J45.901 Unspecified asthma with (acute) exacerbation; Z99.81 Dependence on supplemental oxygen; C61 Malignant neoplasm of prostate; J10.1 Influenza due to other identified influenza virus with other respiratory manifestations; I10 Essential (primary) hypertension; E78.5 Hyperlipidemia, unspecified; I25.10 Atherosclerotic heart disease of native coronary artery without angina pectoris; F41.9 Anxiety disorder, unspecified; E66.3 Overweight; Z95.1 Presence of aortocoronary bypass graft; Z87.891 Personal history of nicotine dependence; Z68.28 Body mass index [BMI] 28.0-28.9, adult; Z79.82 Long term (current) use of aspirin
CPT/HCPCS: 36415; 71045; 80048; 80053; 81001; 83605; 83630; 84484; 85025; 85027; 85610; 85730; 87040; 87086; 87177; 87209; 87449; 87493; 87506; 87633; 93005; 94640; 99251; 99283; J7030; A4216; G0463; J0696

== ENCOUNTER → 2017-05-21 10:53 | Outpatient (CLI) | payer MEDICARE, BC, SELFPAY ==
[2017-05-21 11:52] LABS: PSA,Total- Diagnostic 0.01 ng/mL (0.0-4.0)
== END ==
PROVIDERS: Family Provider Family Medicine; PCP Family Medicine; Visit Provider Urology
DX: C61 Malignant neoplasm of prostate (principal)
CPT/HCPCS: 36415; 84153

== ENCOUNTER → 2017-08-12 15:43 | Outpatient (CLI) | payer MEDICARE, BC, SELFPAY ==
[2017-08-12 16:49] LABS: Absolute Neutrophil Count 4.2 X10^3/uL (2.0-7.7); Basophil# 0.02 X10^3/uL; Basophil% 0.4 % (0-1); Eosinophils% 1.8 % (0-5); Hematocrit 42.5 % (40-54); Hemoglobin 13.9 g/dl (13.0-16.5); Lymphocyte % 14.2 % (19-41); Mean Corp Hgb Conc 32.7 g/gl (32-36); Mean Corpuscular Hgb 30.9 pg (27.0-32.0); Mean Corpuscular Volume 94.4 fL (80-94); Mean Platelet Vol. 8.9 fl (6.2-12.0); Monocyte# 0.51 X10^3/uL; Neutrophil % 74.4 % (47-70); Platelet Count 207 K/mm3 (150-450); RBC Distribution Width CV 13.7 % (11.6-14.6); RBC Distribution Width SD 44.7 fl (35.1-43.9); White Blood Count 5.6 K/mm3 (4.4-11.0)
[2017-08-12 16:51] LABS: POSITIVE COUNT NO; POSITIVE DIFFERENTIAL NO; POSITIVE MORPHOLOGY NO
[2017-08-16 10:27] LABS: Immunoglobulin E 8 IU/mL (0-100)
== END ==
PROVIDERS: Family Provider Family Medicine; PCP Family Medicine; Visit Provider Nurse Practitioner Acute Care
DX: R06.02 Shortness of breath (principal); J47.9 Bronchiectasis, uncomplicated
CPT/HCPCS: 36415; 82785; 85025

== ENCOUNTER → 2017-08-26 10:44 | Outpatient (CLI) | payer MEDICARE, BC, SELFPAY ==
[2017-08-27 07:45] LABS: PSA,Total- Diagnostic 0.01 ng/mL (0.0-4.0)
== END ==
PROVIDERS: Family Provider Family Medicine; PCP Family Medicine; Visit Provider Urology
DX: C61 Malignant neoplasm of prostate (principal)
CPT/HCPCS: 36415; 84153

== ENCOUNTER → 2017-12-09 12:56 | Outpatient (CLI) | payer MEDICARE, BC, SELFPAY | PROVIDERS: Family Provider Family Medicine; PCP Family Medicine; Referring Provider Nurse Practitioner Acute Care; Visit Provider Nurse Practitioner Acute Care | DX: J47.9 Bronchiectasis, uncomplicated (principal) | CPT/HCPCS: 87070; 87077; 87186; 87205 ==

== ENCOUNTER → 2018-02-16 11:00 | Outpatient (CLI) | payer MEDICARE, BC, SELFPAY ==
[2018-02-16 11:00] VITALS: BMI 28.5
[2018-02-16 12:09] LABS: PSA,Total- Diagnostic 0.03 ng/mL (0.0-4.0)
--- OUTSIDE RECORDS SUMMARY | 2018-05-20 19:52 | XMS RPT_ITS ---
:1940 Author Organization OHIP Support Name Relationship Address Phone GENO COLREY Unavailable [address] + [place] [address] R Unavailable Unavailable Unavailable BARNEY, GENO Unavailable Monique [phone] [place] [address] R Unavailable Unavailable Unavailable BARNEY, GENO Unavailable [address] + [place] [address] R Unavailable Unavailable Unavailable BARNEY, GENO Unavailable Monique [phone] [place] [address] R Unavailable Unavailable Unavailable BARNEY, GENO Unavailable [address] + [place] [address] R Unavailable Unavailable Unavailable BARNEY, GENO Unavailable Monique [phone] [place] [address] R Unavailable Unavailable Unavailable BARNEY, GENO Unavailable [address] + [place] [address] R Unavailable Unavailable Unavailable BARNEY, GENO Unavailable Monique [phone] [place] [address] R Unavailable Unavailable Unavailable BARNEY, GENO Unavailable [address] + [place] [address] R Unavailable Unavailable Unavailable BARNEY, GENO Unavailable Monique [phone] [place] [address] R Unavailable Unavailable Unavailable BARNEY, GENO Unavailable Monique [phone] [place] [address] R Unavailable Unavailable Unavailable BARNEY, GENO Unavailable Monique [phone] [place] [address] R Unavailable Unavailable Unavailable BARNEY, GENO Unavailable [address] + [place] [address] R Unavailable Unavailable Unavailable BARNEY, GENO Unavailable [address] + [place] [address] R Unavailable Unavailable Unavailable BARNEY, GENO Unavailable [address] + [place] [address] R Unavailable Unavailable Unavailable BARNEY, GENO Unavailable [address] + [place] [address] R Unavailable Unavailable Unavailable BARNEY, GENO Unavailable [address] + [place] [address] R Unavailable Unavailable Unavailable BARNEY, GENO Unavailable [address] + [place] [address] R Unavailable Unavailable Unavailable BARNEY, GENO Unavailable [address] + [place] [address] R Unavailable Unavailable Unavailable BARNEY, GENO Unavailable [address] + [place] [address] R Unavailable Unavailable Unavailable BARNEY, GENO Unavailable [facility] [address] + [place] [address] R Unavailable Unavailable Unavailable BARNEY, GENO Unavailable [facility] [address] + [place] [address] R Unavailable Unavailable Unavailable BARNEY, GENO Unavailable [address] + [place] [address] R Unavailable Unavailable Unavailable BARNEY, GENO Unavailable [address] + [place] [address] R Unavailable Unavailable Unavailable BARNEY, GENO Unavailable [facility] [address] + [place] [address] R Unavailable Unavailable Unavailable BARNEY, GENO [facility] [address] + [place] [address] R Unavailable Unavailable Unavailable BARNEY, GENO Unavailable [address] + [place] [address] R Unavailable Unavailable Unavailable Care Team Providers Name Role Phone Bruno Catalan Attending Unavailable Bruno Catalan Referring Unavailable Mei Perez Primary Care Unavailable Karol Hurtado Attending Unavailable Bryant Karol Referring Unavailable Elderbrock, Mei Primary Care Unavailable Yong Calvillo D.O. Attending Unavailable Yong Calvillo D.O. Referring Unavailable Elderbrock, Mei Primary Care Unavailable Elderbrock, Mei Primary Care Unavailable Paintsil, Randall Admitting Unavailable Thierry, Joshua Consulting Unavailable White, Sushila Attending Unavailable Paintsil, Randall Admitting Unavailable Paintsil, Randall Attending Unavailable Elderbrock, Mei Primary Care Unavailable Paintsil, Randall Consulting Unavailable Paintsil, Randall Admitting Unavailable Karla Gil TYPING TEACHER-C Attending Unavailable Elderbrock, Mei Primary Care Unavailable Thierry, Joshua Consulting Unavailable White, Sushila Consulting Unavailable Paintsil, Randall Admitting Unavailable Yong Calvillo D.O. Attending Unavailable Elderbrock, Mei Primary Care Unavailable Thierry, Joshua Consulting Unavailable White, Sushila Consulting Unavailable Paintsil, Randall Admitting Unavailable Elderbrock, Mei Primary Care Unavailable Thierry, Joshua Consulting Unavailable White, Sushila Attending Unavailable White, Sushila Consulting Unavailable Paintsil, Randall Admitting Unavailable Karla Gil TYPING TEACHER-C Attending Unavailable Elderbrock, Mei Primary Care Unavailable Thierry, Joshua Consulting Unavailable White, Sushila Consulting Unavailable Bryant Karol Attending Unavailable Elderbrock, Mei Referring Unavailable Paintsil, Randall Admitting Unavailable Yong Calvillo D.O. Attending Unavailable Elderbrock, Mei Primary Care Unavailable Thierry, Joshua Consulting Unavailable White, Sushila Consulting Unavailable White, Sushila Attending Unavailable Paintsil, Randall Admitting Unavailable Elderbrock, Mei Primary Care Unavailable Thierry, Joshua Consulting Unavailable White, Sushila Consulting Unavailable Hailee Messer Attending Unavailable Yong Calvillo D.O. Attending Unavailable Elderbrock, Mei Referring Unavailable HosseinBruno Attending Unavailable HosseinBruno Referring Unavailable Elderbrock, Mei Primary Care Unavailable Yong Calvillo D.O. Attending Unavailable Elderbrock, Mei Referring Unavailable Karol Hurtado Attending Unavailable Elderbrock, Mei Referring Unavailable Karol Hurtado Attending Unavailable Bryant Karol Referring Unavailable Elderbrock, Mei Primary Care Unavailable HosseinBruno Attending Unavailable Hossein, Alexander Referring Unavailable Elderbrock, Mei Primary Care Unavailable Karol Hurtado Attending Unavailable Elderbrock, Mei Referring Unavailable Karol Hurtado Attending Unavailable Elderbrock, Mei Referring Unavailable Elderbrock, Mei Primary Care Unavailable Karol Hurtado Attending Unavailable Elderbrock, Mei Referring Unavailable Hurtado, Karol Attending Unavailable Elderbrock, Mei Referring Unavailable Hurtado, Karol Attending Unavailable Hurtado, Karol Referring Unavailable Elderbrock, Mei Primary Care Unavailable Yong Calvillo D.O. Attending Unavailable Elderbrock, Mei Referring Unavailable Bryant, Karol Attending Unavailable Elderbrock, Mei Referring Unavailable Yong Calvillo D.O. Attending Unavailable Elderbrock, Mei Primary Care Unavailable MARNIE, CARLOS Attending Unavailable MARNIE, CARLOS Referring Unavailable Elderbrock, Mei Carr Primary Care Unavailable MARNIE, CARLOS Attending Unavailable MARNIE, CARLOS Referring Unavailable Elderbrock, Mei D Primary Care Unavailable MARNIE, CARLOS E Attending Unavailable MARNIE, CARLOS E Referring Unavailable MARNIE, CARLOS E Attending Unavailable MARNIE, CARLOS E Referring Unavailable ELDERBROCK, MEI D Attending Unavailable ELDERBROCK, MEI Carr Referring Unavailable ELDERBROCK, MEI Carr Attending Unavailable ELDERBROCK, MEI Carr Referring Unavailable ELDERBROCK, MEI Carr Referring Unavailable ELDERBROCK, MEI Carr Attending Unavailable ELDERBROCK, MEI Carr Referring Unavailable ELDERBROCK, MEI Carr Attending Unavailable ELDERBROCK, MEI Carr Referring Unavailable ELDERBROCK, MEI Carr Attending Unavailable ELDERBROCK, MEI Carr Referring Unavailable PROBLEMS PROBLEMS DATE TYPE CONDITION / CODE ATTENDING STATUS SOURCE 03/03/2018 Unknown R05 - Cough / Hurtado, Active [place] R05(ICD-10) [facility] Repository 09/27/2009 Active Mixed hyperlipidemia NA Active [place] / E78.2(ICD-10) Clinic Main [place] Repository 01/04/2018 Active Other abnormal NA Active [place] glucose / Clinic Main R73.09(ICD-10) [place] Repository 11/24/2017 Unknown J47.9 - Hurtado, Active [place] Bronchiectasis, [facility] uncomplicated / Hospital J47.9(ICD-10) Repository 08/28/2017 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 Main therapy / [place] Z79.899(ICD-10) Repository 08/13/2017 Unknown R06.02 - Shortness Hurtado, Active [place] of breath / [facility] R06.02(ICD-10) Hospital Repository 06/26/2017 Active Unknown / MARNIE, Active [place] UNK(Unknown) CARLOS E Clinic Other [place] Repository 06/26/2017 Admitting Unknown / MARNIE, Active [place] General diagnosis UNK(Unknown) [facility] Repository PROCEDURES PROCEDURES No Procedure Records FoundRESULTS RESULTS PROGRESS Observed: 03/11/2018 Status: COMPLETED Source: [place] 5:14 PM [facility] [place] REPOSITORY HNO ID: [id number] Author: Guerda Saleem (Pa) Service: (none) Author Type: Physician Donor Recruiter Type: Progress Notes Filed: 03/11/2018 5:15 PM Note Text: Removed unsigned screening order pended by Leeann Arriaga. Per call notes patient declined scheduling LCS follow-up due to going to rehab and following with gate watch. Guerda Saleem PA-C Pager: [phone] NPI #: [id number] March 11, 2018 5:14 PM PROGRESS Observed: 03/04/2018 Status: COMPLETED Source: [place] 1:30 PM [facility] [place] [facility] REPOSITORY HNO ID: [id number] Author: Carlos Dye Service: (none) Author Type: Physician Type: Progress Notes Filed: 03/04/2018 5:39 PM Note Text: PERTINENT CARDIAC HISTORY ASHD - PCI RCA 1998, CABGx3 1998, PCI RCA, LAD 2002, PCI LM 2012 Chronic atypical CP HTN HL TOLENTINO ADHERENCE TO GUIDELINES NÉSTOR-I or ARB for HF with prior LVEF<40 (NQF 0081) - N/A ASA or Plavix for ASHD (NQF 0067) - met Beta bernard for ASHD with prior PR or prior LVEF<40 (NQF 0070) - N/A Beta bernard for HF with prior LVEF<40 (NQF 0083) - N/A NÉSTOR-I or ARB for ASHD with DM or prior LVEF<40 (NQF 0066) - met Statin therapy for ASHD or FHL or DM - met BMI documented and plan if >25 (NQF 0421) - lifestyle recommendation form Tobacco use screening and referral (NQF 0028) - lifestyle recommendation form Recommendation for whole food, plant based diet - lifestyle recommendation form CLINICAL IMPRESSION/PLAN: Hal Corley is doing well. Blood pressure is well-controlled. His coronary disease is under good control. Exercise intolerance is predominantly related to his lung disease. However, if it worsens, I've asked him to contact me and we can refer him for stress echocardiogram. I recommend 12 month follow-up visit. Written and verbal health teaching given to patient, patient verbalizes understanding and agrees with treatment plan. DIAGNOSIS FOR VISIT: ASHD Hypertension HISTORY OF PRESENT ILLNESS Hal Corley returns for follow-up of his coronary disease and hypertension. He reports stable exercise tolerance, although is quite limited by his COPD. He is currently on a steroid bolus. He denies orthopnea, edema, syncope, palpitations, TIAs, amaurosis and claudication. ALLERGIES: ALLERGIES Allergen Reactions - Imdur [Isosorbide M* Hives Black out and dizziness CURRENT OUTPATIENT MEDICATIONS: LORazepam (ATIVAN) 1 mg tablet Take 1 tablet by mouth three times daily for 90 days. metoprolol tartrate, short acting, (LOPRESSOR) 50 mg tablet TAKE HALF A TABLET BY MOUTH FOUR TIMES DAILY. lisinopril (ZESTRIL, PRINIVIL) 5 mg tablet TAKE 1 TABLET BY MOUTH ONCE DAILY. nitroglycerin sublingual (NITROSTAT) 0.4 mg SL tablet Dissolve 1 tablet under the tongue every 5 minutes as needed. DULERA 200-5 mcg/actuation inhaler Take 2 Puffs by mouth twice daily. atorvastatin (LIPITOR) 20 mg tablet TAKE ONE TABLET BY MOUTH ONCE A DAY. tiotropium (SPIRIVA WITH HANDIHALER) 18 mcg inhalation capsule Inhale 1 capsule as instructed once daily. Use with handihaler. clopidogrel (PLAVIX) 75 mg tablet TAKE ONE TABLET BY MOUTH ONCE A DAY. albuterol (PROVENTIL) 2.5 mg/0.5 mL nebulizar solution PEDIATRIC ASTHMA Inhale 2.5-5 mg as instructed as directed. albuterol HFA (PROAIR HFA) 90 mcg/actuation inhaler Inhale 2 Puffs as instructed every 4 hours as needed for Wheezing/Shortness of Breath. ASPIRIN 81 MG TAB Take one (1) tablet daily . PHYSICAL EXAMINATION: VITAL SIGNS: BP 123/65 Pulse 50 Ht 5' 11 (1.80m) Wt 202 lb 14.4 oz (92.0kg) BMI 28.31 kg/(m2). Chest: Clear to auscultation. Trachea is midline. Air entry is equal. Cardiac: Regular rhythm. S1 and S2 are normal. PMI is nondisplaced. There is a soft systolic ejection murmur. Carotids are brisk without bruits. JVP is less than 10 cm. Abdomen: Soft and nontender. There are no pulsatile masses or bruits. No liver enlargement. Bowel sounds are active. Extremities: No edema. Pulses are intact and symmetrical. Recent labs were reviewed. Renal function is normal. LDL was 95. Electronically Signed: Carlos Dye MD March 04, 2018 1:30 PM CC: Mei Perez MD CNOV Observed: 03/04/2018 Status: COMPLETED Source: [place] 1:00 PM [facility] REPOSITORY Office Visit (CAWSTR) HAL CORLEY ([id number]) 1940 M Date Time Provider Department 03/04/18 1:00 PM CARLOS DYEWSTR During your visit today, we recorded the following information about you: Pulse Blood pressure Weight Height 50/minute 123/65 92 kg 1.803 m Carlos Dye MD 03/04/2018 5:39 PM Signed PERTINENT CARDIAC HISTORY ASHD - PCI RCA 1998, CABGx3 1998, PCI RCA, LAD 2002, PCI LM 2012 Chronic atypical CP HTN HL T[place]ENTINO ADHERENCE TO GUIDELINES NÉSTOR-I or ARB for HF with prior LVEF<40 (NQF 0081) - N/A ASA or Plavix for ASHD (NQF 0067) - met Beta bernard for ASHD with prior PR or prior LVEF<40 (NQF 0070) - N/A Beta bernard for HF with prior LVEF<40 (NQF 0083) - N/A NÉSTOR-I or ARB for ASHD with DM or prior LVEF<40 (NQF 0066) - met Statin therapy for ASHD or FHL or DM - met BMI documented and plan if >25 (NQF 0421) - lifestyle recommendation form Tobacco use screening and referral (NQF 0028) - lifestyle recommendation form Recommendation for whole food, plant based diet - lifestyle recommendation form CLINICAL IMPRESSION/PLAN: Hal Corley is doing well. Blood pressure is well-controlled. His coronary disease is under good control. Exercise intolerance is predominantly related to his lung disease. However, if it worsens, I've asked him to contact me and we can refer him for stress echocardiogram. I recommend 12 month follow-up visit. Written and verbal health teaching given to patient, patient verbalizes understanding and agrees with treatment plan. DIAGNOSIS FOR VISIT: ASHD Hypertension HISTORY OF PRESENT ILLNESS Hal Corley returns for follow-up of his coronary disease and hypertension. He reports stable exercise tolerance, although is quite limited by his COPD. He is currently on a steroid bolus. He denies orthopnea, edema, syncope, palpitations, TIAs, amaurosis and claudication. ALLERGIES: ALLERGIES Allergen Reactions - Imdur [Isosorbide M* Hives Black out and dizziness CURRENT OUTPATIENT MEDICATIONS: LORazepam (ATIVAN) 1 mg tablet Take 1 tablet by mouth three times daily for 90 days. metoprolol tartrate, short acting, (LOPRESSOR) 50 mg tablet TAKE HALF A TABLET BY MOUTH FOUR TIMES DAILY. lisinopril (ZESTRIL, PRINIVIL) 5 mg tablet TAKE 1 TABLET BY MOUTH ONCE DAILY. nitroglycerin sublingual (NITROSTAT) 0.4 mg SL tablet Dissolve 1 tablet under the tongue every 5 minutes as needed. DULERA 200-5 mcg/actuation inhaler Take 2 Puffs by mouth twice daily. atorvastatin (LIPITOR) 20 mg tablet TAKE ONE TABLET BY MOUTH ONCE A DAY. tiotropium (SPIRIVA WITH HANDIHALER) 18 mcg inhalation capsule Inhale 1 capsule as instructed once daily. Use with handihaler. clopidogrel (PLAVIX) 75 mg tablet TAKE ONE TABLET BY MOUTH ONCE A DAY. albuterol (PROVENTIL) 2.5 mg/0.5 mL nebulizar solution PEDIATRIC ASTHMA Inhale 2.5-5 mg as instructed as directed. albuterol HFA (PROAIR HFA) 90 mcg/actuation inhaler Inhale 2 Puffs as instructed every 4 hours as needed for Wheezing/Shortness of Breath. ASPIRIN 81 MG TAB Take one (1) tablet daily . PHYSICAL EXAMINATION: VITAL SIGNS: BP 123/65 Pulse 50 Ht 5' 11 (1.80m) Wt 202 lb 14.4 oz (92.0kg) BMI 28.31 kg/(m2). Chest: Clear to auscultation. Trachea is midline. Air entry is equal. Cardiac: Regular rhythm. S1 and S2 are normal. PMI is nondisplaced. There is a soft systolic ejection murmur. Carotids are brisk without bruits. JVP is less than 10 cm. Abdomen: Soft and nontender. There are no pulsatile masses or bruits. No liver enlargement. Bowel sounds are active. Extremities: No edema. Pulses are intact and symmetrical. Recent labs were reviewed. Renal function is normal. LDL was 95. Electronically Signed: Carlos Dye MD March 04, 2018 1:30 PM CC: MD Carlos Tse MD 03/04/2018 1:31 PM Signed LIFESTYLE CHANGE A healthy lifestyle is the most important component of your overall treatment plan. 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 EAT A WHOLE FOOD, PLANT BASED DIET The nutrition your body gets is more important than the medicine you take. What matters most is the overall way you eat. We encourage you to minimize the use of animal products (which include dairy and all meats except fatty fish) and use whole, unprocessed plant foods to provide your protein, vitamins and other nutrients. We have a lot of information to share with you on this topic. This is not a diet. It is a way of life that you will keep with you. EXERCISE REGULARLY It is not important to spend hours in the gym, lifting weights and perspiring heavily. A total of 2-3 hours per week of aerobic (causing you to be moderately short of breath) exercise is sufficient to improve your health. Talk to us before you begin a new exercise program, if you have heart disease or experience shortness of breath or chest pain. REDUCE STRESS Chronic emotional and physical stress leads to disease. Ways of reducing stress include meditation, visualization, prayer, yoga and other forms of relaxation therapy. Consistency is the wadsworth. Find a technique that works for you and do it every day. CULTIVATE RELATIONSHIPS Loneliness and isolation have a major negative impact on health. Seek out others who can love, care for and nurture you. Avoid hurtful relationships. MAINTAIN IDEAL BODY WEIGHT The best way to do this is to do all the things above. Our bodies naturally find the right weight if we keep moving and feed ourselves the right food. If your BMI is greater than 25, we strongly recommend a referral to a weight management program. Please speak to us or your family physician about available programs. AVOID NICOTINE IN ALL FORMS This includes all tobacco products, whether chewed, smoked, vaped, or rubbed on the skin. Smoking cessation programs, which can make use of tobacco substitutes, medications to suppress cravings and behavior management, are available. Please contact your family physician about programs in your area. Referring Provider: CARLOS DYE [[id number]] Allergies As of Date: 03/04/2018 Noted Allergy Reaction IMDUR (ISOSORBIDE MONONITRATE) 03/14/2015 4 - Hives Comments: Black out and dizziness Date Reviewed: 03/04/2018 Reviewed by: Larissa Hoff MA - Fully Assessed Reason for Visit: Established Patient [175] Primary Visit Diagnosis:ASHD (arteriosclerotic heart disease) [I25.10] Other Visit Diagnosis:Hypertension, essential [I10] Prescriptions as of 03/04/2018 Sig: LORAZEPAM 1 MG TABLET Take 1 tablet by mouth three * METOPROLOL TARTRATE 50 MG TAB* TAKE HALF A TABLET BY MOUTH F* LISINOPRIL 5 MG TABLET TAKE 1 TABLET BY MOUTH ONCE D* NITROGLYCERIN 0.4 MG SUBLINGU* Dissolve 1 tablet under the t* DULERA 200 MCG-5 MCG/ACTUATIO* Take 2 Puffs by mouth twice d* ATORVASTATIN 20 MG TABLET TAKE ONE TABLET BY MOUTH ONCE* TIOTROPIUM BROMIDE 18 MCG CAP* Inhale 1 capsule as instructe* CLOPIDOGREL 75 MG TABLET TAKE ONE TABLET BY MOUTH ONCE* ALBUTEROL SULFATE 2.5 MG/0.5 * Inhale 2.5-5 mg as instructed* ALBUTEROL SULFATE HFA 90 MCG/* Inhale 2 Puffs as instructed * ASPIRIN 81 MG TABLET Take one (1) tablet daily . Problem List As Of Date 03/04/2018 Noted Resolved Hyperlipidemia, Mixed [E78.2] INVALID FOR* Prostate cancer (HCC) [C61] INVALID FOR* ASCVD (arteriosclerotic cardiovascular disease)*INVALID FOR* Hypertrophy of prostate with urinary obstructio*INVALID FOR* Chronic obstructive pulmonary disease (HCC) [J4*INVALID FOR* Essential hypertension [I10] INVALID FOR* Anxiety [F41.9] INVALID FOR* Other instructions from your clinician: LIFESTYLE CHANGE A healthy lifestyle is the most important component of your overall treatment plan. 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 EAT A WHOLE FOOD, PLANT BASED DIET The nutrition your body gets is more important than the medicine you take. What matters most is the overall way you eat. We encourage you to minimize the use of animal products (which include dairy and all meats except fatty fish) and use whole, unprocessed plant foods to provide your protein, vitamins and other nutrients. We have a lot of information to share with you on this topic. This is not a diet. It is a way of life that you will keep with you. EXERCISE REGULARLY It is not important to spend hours in the gym, lifting weights and perspiring heavily. A total of 2-3 hours per week of aerobic (causing you to be moderately short of breath) exercise is sufficient to improve your health. Talk to us before you begin a new exercise program, if you have heart disease or experience shortness of breath or chest pain. REDUCE STRESS Chronic emotional and physical stress leads to disease. Ways of reducing stress include meditation, visualization, prayer, yoga and other forms of relaxation therapy. Consistency is the wadsworth. Find a technique that works for you and do it every day. CULTIVATE RELATIONSHIPS Loneliness and isolation have a major negative impact on health. Seek out others who can love, care for and nurture you. Avoid hurtful relationships. MAINTAIN IDEAL BODY WEIGHT The best way to do this is to do all the things above. Our bodies naturally find the right weight if we keep moving and feed ourselves the right food. If your BMI is greater than 25, we strongly recommend a referral to a weight management program. Please speak to us or your family physician about available programs. AVOID NICOTINE IN ALL FORMS This includes all tobacco products, whether chewed, smoked, vaped, or rubbed on the skin. Smoking cessation programs, which can make use of tobacco substitutes, medications to suppress cravings and behavior management, are available. Please contact your family physician about programs in your area. Encounter Status:Closed by CARLOS DYE MD on 03/04/18 PULMONARY VISIT REPORT Observed: 03/03/2018 Status: F Source: [place] 4:08 PM [facility] [place] [facility] Pulmonary Medicine [facility] [address] [place] [address] OFFICE VISIT Date of Service: 03/03/18 MR#: [id number] Acct: [id number] Name: HAL CORLEY Rep #: [id number] : 1940 Provider: Karol Hurtado Age/Sex: 77/M Location: [facility].PMW Status: Signed Assessment AND Plan 1. PND (post-nasal drip) R09.82 Plan Deteriorated. I believe his cough is productive of white sputum is secondary to his uncontrolled postnasal drip. Encouraged to use Flonase 2 sprays each nostril daily as previously prescribed. Keep previously scheduled routine follow-up. Contact the office with any new or worsening symptoms. 2. Stage 3 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 J44.9 Plan Sputum culture pending. No antibiotics at this point. Continue prednisone taper. Keep previously scheduled routine follow-up. Continue all maintenance medications. HPI Cough: Chief Complaint: Cough with white sputum HPI Comments Details: This patient presents the office today to follow-up after recently being treated for exacerbation of his COPD with a prednisone taper. The patient is ambulatory, currently on room air and accompanied by his . The patient has been dealing with a cough that is productive of white sputum, and states that occasionally it does have a yellow tent. He is concerned that he may need an antibiotic. He has occasional wheezing and chest tightness. He continues to experience shortness of breath on exertion, which is his baseline. He started a prednisone taper a few days ago. He is compliant with his chest physiotherapy vest twice daily set at a pressure of 55%. He is compliant with Dulera twice daily. Reports rinsing his mouth out after each use. Denies any medication side effects such as sore throat or thrush. He is also compliant with Spiriva daily. He is not using his albuterol rescue inhaler or albuterol nebulizer as he does not feel that that is necessary. He denies any chest pain or palpitations. He has not experienced any hemoptysis. He denies any fever, chills or body aches. He has not used any [id number] medications but does occasionally use Mucinex. He admits that he has not been using his Flonase as prescribed. 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 Accompanied by: Allergies isosorbide [From Imdur] Allergy (Verified 03/03/18 14:29) Other-patient blacks out Medications Aspirin [Aspirin, Baby] 81 mg PO DAILY@0800 12/29/14 [History Confirmed 03/03/18] Atorvastatin Calcium [Lipitor] 20 mg PO QHS 12/29/14 [History Confirmed 03/03/18] Lorazepam [Ativan] 1 mg PO TID PRN PRN 12/29/14 [History Confirmed 03/03/18] Metoprolol Tartrate 25 mg PO 4X/DAY 12/29/14 [History Confirmed 03/03/18] Nitroglycerin [Nitrostat] 0.4 mg SL PRN PRN 12/29/14 [History Confirmed 03/03/18] Albuterol Inhaler [Ventolin Hfa] 2 puff INHALATION Q4H PRN PRN 04/19/16 [History Confirmed 03/03/18] Clopidogrel Bisulfate [Plavix] 75 mg PO DAILY 04/19/16 [History Confirmed 03/03/18] albuterol sulfate 2.5 mg/3 mL (0.083 %) solution for nebulization 2.5 mg INHALATION Q4H PRN ml 04/03/17 [History Confirmed 03/03/18] pseudoephedrine-guaifenesin ER 120 mg-1,200 mg tab,extend release 12hr 1 tab PO Q12H 04/03/17 [History Confirmed 03/03/18] guaifenesin ER 1,200 mg tablet, extended release 12 hr 1,200 mg PO Q12H #60 tab 08/12/17 [Rx Confirmed 03/03/18] fluticasone 50 mcg/actuation nasal spray,suspension 2 spray INTRANASAL DAILY #16 g 08/27/17 [Rx Confirmed 03/03/18] lisinopril 5 mg tablet 5 mg PO DAILY tab 11/24/17 [History Confirmed 03/03/18] Handicap Placard #1 [id number] 12/15/17 [Rx Confirmed 03/03/18] levofloxacin 750 mg tablet 750 mg PO DAILY #14 tab 12/15/17 [Rx Confirmed 03/03/18] prednisone 20 mg tablet 40 mg PO DAILY #10 tab 12/15/17 [Rx Confirmed 03/03/18] tiotropium bromide 2.5 mcg/actuation mist for inhalation 2 puff INHALATION Q24H #1 device 02/03/18 [Rx Confirmed 03/03/18] prednisone 10 mg tablet 10 mg PO QDAY #30 tab 02/26/18 [Rx Confirmed 03/03/18] mometasone-formoterol HFA 200 mcg-5 mcg/actuation aerosol inhaler 2 puff INHALATION BID #13 g 03/03/18 [Rx] PFSH Medical History SOB (shortness of breath) (Acute) Cough (Chronic) 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 (Chronic) Chronic hypoxemic respiratory failure (Chronic) Bronchiectasis (Acute) Benign essential HTN (Chronic) HLD (hyperlipidemia) (Chronic) CAD (coronary artery disease) (Chronic) Hypotension (Acute) Prostate CA (Chronic) COPD (chronic obstructive pulmonary disease) (Acute) Influenza B (Acute) Social History Smoking Status: Former smoker how long ago did patient quit smokin, second hand exposure: Yes alcohol intake: never substance use type: does not use Review of Systems Const CONSTITUTIONAL: Negative anorexia, body ache, chills, daytime sleepiness, fever(s), night sweats, oral thrush, stops breathing during sleep, weight loss, sleeping in chair, fatigue, weight loss, weight gain, frequent colds, seasonal allergies, other, headache(s) or orthopnea EETM Ear Nose Throat Mouth: Positive hearing normal and post nasal drip; negative hard of hearing, hoarseness, dry mouth in morning, change in vision, itchy eyes, eye pain, swallowing Difficulty, ear pain, nose bleed, headache(s), mouth pain, nasal congestion, nasal discharge, sinus pain, sinus pressure, sore throat or other Cardio Cardiovascular: Negative chest pain, chest pain at rest, chest pain with activity, irregular heart rhythm, edema, shortness of breath when lying down, palpitations, murmur or other Resp Respiratory: Positive as per HPI, shortness of breath shortness of breath: Positive with activity, wheezing, cough cough: Positive productive color: Positive white and yellow, chest tightness and inhalers; negative pain with cough, chest congestion, pain on inspiration, increase use of rescue inhalers, snoring, apnea or other Gastro Gastrointestional: Negative bloody stools, change in appetite, difficulty swallowing, reflux, hematemesis, melena stool, loose stool, constipation or other Genitourinary: Negative blood in urine, nocturia, pain with urination or other Musc Musculoskeletal: Negative body pain, back pain, neck pain or other Skin/Breast Skin/Breast: Negative dry skin, itching, rash, unusual bruising, breast lump or other Neuro Neurological: Negative restless legs, confusion, weakness or other Psych Psychocological: Negative abnormal sleep pattern, anxiety, thoughts of hurting self/others, hopelessness or other Lymph Lymphatic: Negative easy bleeding, easy bruising, swollen lymph nodes or other Exam Const Constitutional: Positive conversant, cooperative, in no acute respiratory distress, healthy appearing, well developed, well nourished and good hygiene Head Head: Positive normocephalic and atraumatic; negative cyanosis of lips/distal nose Eyes Eye: Positive clear conjunctiva; negative nystagmus or scleral abnormality Ears Ear: Positive hearing normal and external ears normal; negative hard of hearing Nose Nose: Positive external nose normal and no nasal discharge; negative epistaxis Mouth Mouth: Positive post nasal drip, oral mucosae normal, no lesions, dentures and posterior oropharynx is adequate; negative malodorous breath or oral thrush present Neck Neck: Positive normal visual inspection, full ROM and trachea midline; negative lymphadenopathy, JVD or tender Chest Wall Chest: Positive normal inspection of the chest and symmetric chest movement; negative increased A/P diameter Resp lung sounds: Positive diminished, wheezes, wheeze present on forced exhalation, prolonged expiratory time and normal respiratory effort; negative rhonchi, rales or dullness to percussion Cardio Cardiac: Positive regular rate, regular rhythm, S1 normal and S2 normal; negative murmur GI GI: Positive normal to inspection; negative distended Genitourinary: Positive deferred Musc Musculoskeletal: Positive steady gait and ROM normal; negative kyphosis or scoliosis Skin Pulmonary Skin Exam: Positive intact; negative rash Pulses Pulse: Yes pulses normal x4 extremities Extremities Extremities: Yes capillary refill normal, No clubbing, No cyanosis, No edema Neuro Neurologic: Yes conversant, Yes no focal neuro deficits, Yes normal concentration, Yes understands questions, Yes cooperative, Yes normal cognition, Yes normal coordination, No tremor Lymph Lymphatic: No lymphadenopathy, No tenderness, No cervical adenopathy Psych Appearance: Positive grossly normal, eye contact and well kempt Mental Status: Positive mental status grossly normal Mood: Positive congruent mood Affect: Positive normal affect Coding Level of Care Code Off vis,est,level 4 Diagnoses PND (post-nasal drip) R09.82 Stage 3 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 J44.9 03/03/18 1608 <Electronically signed by Karol Hurtado TYPING TEACHER-C> Date Karol Hurtado TYPING TEACHER-C Cosigner Signature: Date (if applicable) CC: Mei Perez MD Observed: 03/03/2018 Status: F Source: [place] CULTURE, [place] 2:15 PM [facility] Gram Stain Acceptable Specimen? Yes (<25 Epithelial cells per/lpf) Gram Stain Rare Gram negative rods Rare White Blood Cells No Epithelial cells Resp. Culture ORGANISM 1: Stenotrophomonas maltophilia Amount Growth 2+ Stenotrophomonas maltophilia: REACTION Levofloxacin $ 0.5 S Trimethoprim/Sulfametho $ <=20 S (NF) indicates non-formulary drug at [facility]. Approval by Infectious Disease Specialist required before non-formulary drugs may be ordered and/or dispensed. Performed By: #### [id number] #### [facility] [address] [place], [address] PSA,TOTAL- DIAGNOSTIC Collected: 02/16/2018 Status: F Source: [place] 11:07 AM [facility] TYPE CODE TESTS RESULT OUT OF RANGE REFERENCE UNITS LAB [id number] 0.0-4.0 ng/mL PSA, Normal DIAGNOSTIC 0.03 Result Comment: This test was performed using the TPSA assay method for the [employer] chemistry system. Values obtained with different assay methods cannot be used interchangably. When changing PSA assays in the course of monitoring a patient, additional sequential testing should be carried out to confirm baseline values. Performed By: #### [id number] #### [facility] [address] [place], [address] PROGRESS Observed: 01/08/2018 Status: COMPLETED Source: [place] 4:31 PM [facility] HNO ID: [id number] Author: Mei Perez Service: (none) Author Type: Physician Type: Progress Notes Filed: 01/08/2018 5:29 PM Note Text: Chief Complaint Patient presents with: F/U 3 Month: COPD, Anxiety, HTN and Lipid HPI Hal Corley is a 77 year old male who presents here today for a 3 mo f/u. Pt here today for a 3 mo f/u. Here with his . HTN/ASVCD - Checks BP occasionally with BP ranging from 98/54-130/85. Admits to chest pain/tightness due to his COPD and sob. Denies any dizziness. Currently taking Lopressor 50 mg 0.5 tab po QID and Lisinopril 5 mg once daily. Follows with Dr. Dye and taking Plavix 75 mg once daily. COPD - Stable and doing pretty well. Follows with Dr. Calvillo and Janette, TYPING TEACHER. Was seeing them monthly but just seen this week and now f/u is in 3 mo. Using vest that shakes his chest to dislodge the mucous twice a day and regimen of Dulera 2 puffs bid, Spiriva once daily and prn use of rescue inhaler and nebulizer. Pt feels that he's doing pretty well compared to previously. Still SOB does limit him. Anxiety - Still there. Tends to get anxious easily. Current regimen of Ativan 1 mg 1 tab po TID. Occasionally skips noon dose due to blurred vision. Diet/Exercise - Does try to lay off the sweets but with his liking sweets its hard for him. Lays off the fatty foods. Feels he could do better with his diet but overall an okay diet. Denies exercising much but this is due to his COPD. Pt has questions regarding his lab work and glucose being elevated. Notes that he was not fasting, ate a piece of toast he believes. Just stopped Prednisone 18 days ago and wonders if that could be why his blood sugar was too high. FH of DM with Dad and Brothers. Past medical history, appointments, medications, allergies reviewed. Previous Medical History PAST MEDICAL HISTORY Diagnosis Date - Atypical chest pain - CAD (coronary artery disease) s/p CABG 1999, PCI w/ stents - COPD (chronic obstructive pulmonary disease) (HCC) - Hyperlipidemia Hyperlipidemia - Hypertension - Prostate cancer (HCC) Dx Dec 2014, s/p radiation, on hormonal therapy Previous Surgical History PAST SURGICAL HISTORY Procedure Laterality Date - PAST SURGICAL HISTORY OF TURP - PAST SURGICAL HISTORY OF 1999 triple bypass Family History FAMILY HISTORY Problem Relation Age of Onset - Cancer Mother breast, bone - Cancer Sister breast - Emphysema Sister Smoker - Diabetes Father - Heart Father - Diabetes Brother - Heart Brother - other (Other) Brother Parkinsons - Diabetes Paternal Grandmother - Heart Paternal Grandmother Patient Allergies ALLERGIES Allergen Reactions - Imdur [Isosorbide M* Hives Black out and dizziness Current Medications Current Outpatient Prescriptions on File Prior to Visit: metoprolol tartrate, short acting, (LOPRESSOR) 50 mg tablet TAKE HALF A TABLET BY MOUTH FOUR TIMES DAILY. LORazepam (ATIVAN) 1 mg tablet Take 1 tablet by mouth three times daily for 90 days. lisinopril (ZESTRIL, PRINIVIL) 5 mg tablet TAKE 1 TABLET BY MOUTH ONCE DAILY. nitroglycerin sublingual (NITROSTAT) 0.4 mg SL tablet Dissolve 1 tablet under the tongue every 5 minutes as needed. DULERA 200-5 mcg/actuation inhaler Take 2 Puffs by mouth twice daily. atorvastatin (LIPITOR) 20 mg tablet TAKE ONE TABLET BY MOUTH ONCE A DAY. tiotropium (SPIRIVA WITH HANDIHALER) 18 mcg inhalation capsule Inhale 1 capsule as instructed once daily. Use with handihaler. clopidogrel (PLAVIX) 75 mg tablet TAKE ONE TABLET BY MOUTH ONCE A DAY. albuterol (PROVENTIL) 2.5 mg/0.5 mL nebulizar solution PEDIATRIC ASTHMA Inhale 2.5-5 mg as instructed as directed. albuterol HFA (PROAIR HFA) 90 mcg/actuation inhaler Inhale 2 Puffs as instructed every 4 hours as needed for Wheezing/Shortness of Breath. ASPIRIN 81 MG TAB Take one (1) tablet daily . No current facility-administered medications on file prior to visit. Social History Social History Marital status: Spouse name: Years of education: Number of children: Social History Main Topics Smoking status: Former Smoker Packs/day: 2.00 Years: 40.00 Types: Cigarettes Start date: 11/08/1962 Quit date: 05/13/2002 Smokeless tobacco: Never Used Alcohol use: Yes 1.8 oz/week Cans of beer: 3 per week Comment: light beer Drug use: No EXAM: BP 124/76 (BP Site: Left Arm, BP Position: Sitting, BP Cuff Size: Regular Adult) Pulse 60 Resp 16 Wt 93.1 kg (205 lb 3.2 oz) BMI 28.62 kg/m? General Appearance: Well appearing, alert, in no acute distress, well-hydrated, well nourished. and Overweight. Lungs: lungs clear to auscultation. No wheezing, rhonchi, rales. Heart: RRR without murmur, gallop, or rubs. No ectopy. Health Maintenance List DTAP,TDAP,TD(1 - Tdap) due on 1961 LUNG CANCER SCREENING due on 12/30/2016 STATIN MED ADHERENCE due on 01/30/2018 COLORECTAL CANCER SCREENING,SEE MODIFIER due on 06/02/2018 ANNUAL PCP TEAM CHRONIC DISEASE VISIT due on 09/01/2018 BP CONTROLLED (<130/80) due on 09/01/2018 LDL CHOLESTEROL due on 01/04/2019 DIABETES SCREEN due on 01/04/2021 LIPID SCREEN due on 01/04/2023 ADULT PREVNAR-13 Completed INFLUENZA Completed PNEUMOVAX AGE 65 AND OVER WITH 5YR LOOKBACK Completed Data reviewed Results Only on 01/04/2018 Component Date Value - Protein, Total 01/04/2018 6.4 - Albumin 01/04/2018 4.1 - Calcium 01/04/2018 9.1 - Bilirubin, Total 01/04/2018 0.6 - Alkaline Phosphatase 01/04/2018 61 - AST 01/04/2018 22 - Glucose 01/04/2018 141* - BUN 01/04/2018 18 - Creatinine 01/04/2018 1.05 - Sodium 01/04/2018 139 - Potassium 01/04/2018 4.7 - Chloride 01/04/2018 102 - CO2 01/04/2018 23 - Anion Gap 01/04/2018 14 - ALT 01/04/2018 16 - eGFR- 01/04/2018 >60 - eGFR-All Other Races 01/04/2018 >60 Appointment on 01/04/2018 Component Date Value - Cholesterol, Total 01/04/2018 172 - Triglyceride 01/04/2018 191* - HDL Cholesterol 01/04/2018 39* - LDL Cholesterol 01/04/2018 95 - Non HDL Cholesterol 01/04/2018 133* - Fasting Time 01/04/2018 12 - VLDL Cholesterol 01/04/2018 38* - TC:HDL Ratio 01/04/2018 4.41 - LDL:HDL Ratio 01/04/2018 2.44 - Hemoglobin A1C 01/04/2018 5.5 - Estimated Average Glucose 01/04/2018 111 - Protein, Total 01/04/2018 Test reordered by [facility]. - Albumin 01/04/2018 Test reordered by [facility]. - Calcium 01/04/2018 Test reordered by [facility]. - Bilirubin, Total 01/04/2018 Test reordered by [facility]. - Alkaline Phosphatase 01/04/2018 Test reordered by [facility]. - AST 01/04/2018 Test reordered by [facility]. - Glucose 01/04/2018 Test reordered by [facility]. - BUN 01/04/2018 Test reordered by [facility]. - Creatinine 01/04/2018 Test reordered by [facility]. - Sodium 01/04/2018 Test reordered by [facility]. - Potassium 01/04/2018 Test reordered by [facility]. - Chloride 01/04/2018 Test reordered by [facility]. - CO2 01/04/2018 Test reordered by [facility]. - Anion Gap 01/04/2018 Test reordered by [facility]. - ALT 01/04/2018 Test reordered by [facility]. - eGFR- 01/04/2018 Test reordered by [facility]. - eGFR-All Other Races 01/04/2018 Test reordered by [facility]. - eGFR-Pediatric Factor 01/04/2018 Test reordered by [facility]. ASSESSMENT/PLAN: 1. Anxiety - ICD9: 300.00, ICD10: F41.9 (primary diagnosis) - Continue current medication regimen. 2. Essential hypertension - ICD9: 401.9, ICD10: I10 - good control - Continue current medication(s) - Recommended regular aerobic exercise. - Recommend home blood pressure monitoring, to bring results in on next visit - Goal of BP <130/80 3. Hyperlipidemia, mixed - ICD9: 272.2, ICD10: E78.2 - good control - Continue current medication. 4. ASCVD (arteriosclerotic cardiovascular disease) - ICD9: 429.2, 440.9, ICD10: I25.10 - Continue current medication regimen. 5. Chronic obstructive pulmonary disease, unspecified COPD type (HCC) - ICD9: 496, ICD10: J44.9 - Stable, doing well. - Continue current medication regimen. 6. Elevated blood sugar - ICD9: 790.29, ICD10: R73.9 - Try fasting before next OV. - Watch diet, avoid sweets 3 mo f/u I agree with the Chief Complaint, ROS, and Past Histories independently gathered by the clinical learning support assistant and the remaining scribed note accurately describes my personal service to the patient. Mei Perez MD The documentation for this note was completed by Vickie Carrillo Ma acting as scribe for Mei Perez MD. January 08, 2018 4:31 PM. CNOV Observed: 01/08/2018 Status: COMPLETED Source: [place] 4:20 PM [facility] Office Visit (FAMPWS) BARNEYHAL ([id number]) 1940 M Date Time Provider Department 01/08/18 4:20 PM MEI PEREZ FAMPWS During your visit today, we recorded the following information about you: Pulse Respiration Blood pressure Weight 60/minute 16/minute 124/76 93.1 kg Mei Perez MD 01/08/2018 5:29 PM Signed Chief Complaint Patient presents with: F/U 3 Month: COPD, Anxiety, HTN and Lipid HPI Hal Corley is a 77 year old male who presents here today for a 3 mo f/u. Pt here today for a 3 mo f/u. Here with his . HTN/ASVCD - Checks BP occasionally with BP ranging from 98/54- 130/85. Admits to chest pain/tightness due to his COPD and sob. Denies any dizziness. Currently taking Lopressor 50 mg 0.5 tab po QID and Lisinopril 5 mg once daily. Follows with Dr. Dye and taking Plavix 75 mg once daily. COPD - Stable and doing pretty well. Follows with Dr. Calvillo and Janette, [facility]. Was seeing them monthly but just seen this week and now f/u is in 3 mo. Using vest that shakes his chest to dislodge the mucous twice a day and regimen of Dulera 2 puffs bid, Spiriva once daily and prn use of rescue inhaler and nebulizer. Pt feels that he's doing pretty well compared to previously. Still SOB does limit him. Anxiety - Still there. Tends to get anxious easily. Current regimen of Ativan 1 mg 1 tab po TID. Occasionally skips noon dose due to blurred vision. Diet/Exercise - Does try to lay off the sweets but with his liking sweets its hard for him. Lays off the fatty foods. Feels he could do better with his diet but overall an okay diet. Denies exercising much but this is due to his COPD. Pt has questions regarding his lab work and glucose being elevated. Notes that he was not fasting, ate a piece of toast he believes. Just stopped Prednisone 18 days ago and wonders if that could be why his blood sugar was too high. FH of DM with Dad and Brothers. Past medical history, appointments, medications, allergies reviewed. Previous Medical History PAST MEDICAL HISTORY Diagnosis Date - Atypical chest pain - CAD (coronary artery disease) s/p CABG 1999, PCI w/ stents - COPD (chronic obstructive pulmonary disease) (HCC) - Hyperlipidemia Hyperlipidemia - Hypertension - Prostate cancer (HCC) Dx Dec 2014, s/p radiation, on hormonal therapy Previous Surgical History PAST SURGICAL HISTORY Procedure Laterality Date - PAST SURGICAL HISTORY OF TURP - PAST SURGICAL HISTORY OF 1999 triple bypass Family History FAMILY HISTORY Problem Relation Age of Onset - Cancer Mother breast, bone - Cancer Sister breast - Emphysema Sister Smoker - Diabetes Father - Heart Father - Diabetes Brother - Heart Brother - other (Other) Brother Parkinsons - Diabetes Paternal Grandmother - Heart Paternal Grandmother Patient Allergies ALLERGIES Allergen Reactions - Imdur [Isosorbide M* Hives Black out and dizziness Current Medications Current Outpatient Prescriptions on File Prior to Visit: metoprolol tartrate, short acting, (LOPRESSOR) 50 mg tablet TAKE HALF A TABLET BY MOUTH FOUR TIMES DAILY. LORazepam (ATIVAN) 1 mg tablet Take 1 tablet by mouth three times daily for 90 days. lisinopril (ZESTRIL, PRINIVIL) 5 mg tablet TAKE 1 TABLET BY MOUTH ONCE DAILY. nitroglycerin sublingual (NITROSTAT) 0.4 mg SL tablet Dissolve 1 tablet under the tongue every 5 minutes as needed. DULERA 200-5 mcg/actuation inhaler Take 2 Puffs by mouth twice daily. atorvastatin (LIPITOR) 20 mg tablet TAKE ONE TABLET BY MOUTH ONCE A DAY. tiotropium (SPIRIVA WITH HANDIHALER) 18 mcg inhalation capsule Inhale 1 capsule as instructed once daily. Use with handihaler. clopidogrel (PLAVIX) 75 mg tablet TAKE ONE TABLET BY MOUTH ONCE A DAY. albuterol (PROVENTIL) 2.5 mg/0.5 mL nebulizar solution PEDIATRIC ASTHMA Inhale 2.5-5 mg as instructed as directed. albuterol HFA (PROAIR HFA) 90 mcg/actuation inhaler Inhale 2 Puffs as instructed every 4 hours as needed for Wheezing/Shortness of Breath. ASPIRIN 81 MG TAB Take one (1) tablet daily . No current facility-administered medications on file prior to visit. Social History Social History Marital status: Spouse name: Years of education: Number of children: Social History Main Topics Smoking status: Former Smoker Packs/day: 2.00 Years: 40.00 Types: Cigarettes Start date: 11/08/1962 Quit date: 05/13/2002 Smokeless tobacco: Never Used Alcohol use: Yes 1.8 oz/week Cans of beer: 3 per week Comment: light beer Drug use: No EXAM: BP 124/76 (BP Site: Left Arm, BP Position: Sitting, BP Cuff Size: Regular Adult) Pulse 60 Resp 16 Wt 93.1 kg (205 lb 3.2 oz) BMI 28.62 kg/m? General Appearance: Well appearing, alert, in no acute distress, well-hydrated, well nourished. and Overweight. Lungs: lungs clear to auscultation. No wheezing, rhonchi, rales. Heart: RRR without murmur, gallop, or rubs. No ectopy. Health Maintenance List DTAP,TDAP,TD(1 - Tdap) due on 1961 LUNG CANCER SCREENING due on 12/30/2016 STATIN MED ADHERENCE due on 01/30/2018 COLORECTAL CANCER SCREENING,SEE MODIFIER due on 06/02/2018 ANNUAL PCP TEAM CHRONIC DISEASE VISIT due on 09/01/2018 BP CONTROLLED (<130/80) due on 09/01/2018 LDL CHOLESTEROL due on 01/04/2019 DIABETES SCREEN due on 01/04/2021 LIPID SCREEN due on 01/04/2023 ADULT PREVNAR-13 Completed INFLUENZA Completed PNEUMOVAX AGE 65 AND OVER WITH 5YR LOOKBACK Completed Data reviewed Results Only on 01/04/2018 Component Date Value - Protein, Total 01/04/2018 6.4 - Albumin 01/04/2018 4.1 - Calcium 01/04/2018 9.1 - Bilirubin, Total 01/04/2018 0.6 - Alkaline Phosphatase 01/04/2018 61 - AST 01/04/2018 22 - Glucose 01/04/2018 141* - BUN 01/04/2018 18 - Creatinine 01/04/2018 1.05 - Sodium 01/04/2018 139 - Potassium 01/04/2018 4.7 - Chloride 01/04/2018 102 - CO2 01/04/2018 23 - Anion Gap 01/04/2018 14 - ALT 01/04/2018 16 - eGFR- 01/04/2018 >60 - eGFR-All Other Races 01/04/2018 >60 Appointment on 01/04/2018 Component Date Value - Cholesterol, Total 01/04/2018 172 - Triglyceride 01/04/2018 191* - HDL Cholesterol 01/04/2018 39* - LDL Cholesterol 01/04/2018 95 - Non HDL Cholesterol 01/04/2018 133* - Fasting Time 01/04/2018 12 - VLDL Cholesterol 01/04/2018 38* - TC:HDL Ratio 01/04/2018 4.41 - LDL:HDL Ratio 01/04/2018 2.44 - Hemoglobin A1C 01/04/2018 5.5 - Estimated Average Glucose 01/04/2018 111 - Protein, Total 01/04/2018 Test reordered by [facility]. - Albumin 01/04/2018 Test reordered by [facility]. - Calcium 01/04/2018 Test reordered by [facility]. - Bilirubin, Total 01/04/2018 Test reordered by [facility]. - Alkaline Phosphatase 01/04/2018 Test reordered by [facility]. - AST 01/04/2018 Test reordered by [facility]. - Glucose 01/04/2018 Test reordered by [facility]. - BUN 01/04/2018 Test reordered by [facility]. - Creatinine 01/04/2018 Test reordered by [facility]. - Sodium 01/04/2018 Test reordered by [facility]. - Potassium 01/04/2018 Test reordered by [facility]. - Chloride 01/04/2018 Test reordered by [facility]. - CO2 01/04/2018 Test reordered by [facility]. - Anion Gap 01/04/2018 Test reordered by [facility]. - ALT 01/04/2018 Test reordered by [facility]. - eGFR- 01/04/2018 Test reordered by [facility]. - eGFR-All Other Races 01/04/2018 Test reordered by [facility]. - eGFR-Pediatric Factor 01/04/2018 Test reordered by [facility]. ASSESSMENT/PLAN: 1. Anxiety - ICD9: 300.00, ICD10: F41.9 (primary diagnosis) - Continue current medication regimen. 2. Essential hypertension - ICD9: 401.9, ICD10: I10 - good control - Continue current medication(s) - Recommended regular aerobic exercise. - Recommend home blood pressure monitoring, to bring results in on next visit - Goal of BP <130/80 3. Hyperlipidemia, mixed - ICD9: 272.2, ICD10: E78.2 - good control - Continue current medication. 4. ASCVD (arteriosclerotic cardiovascular disease) - ICD9: 429.2, 440.9, ICD10: I25.10 - Continue current medication regimen. 5. Chronic obstructive pulmonary disease, unspecified COPD type (HCC) - ICD9: 496, ICD10: J44.9 - Stable, doing well. - Continue current medication regimen. 6. Elevated blood sugar - ICD9: 790.29, ICD10: R73.9 - Try fasting before next OV. - Watch diet, avoid sweets 3 mo f/u I agree with the Chief Complaint, ROS, and Past Histories independently gathered by the clinical learning support assistant and the remaining scribed note accurately describes my personal service to the patient. Mei Perez MD The documentation for this note was completed by Vickie Carrillo Ma acting as scribe for Mei Perez MD. January 08, 2018 4:31 PM. Referring Provider: MEI PEREZ [[id number]] Allergies As of Date: 01/08/2018 Noted Allergy Reaction IMDUR (ISOSORBIDE MONONITRATE) 03/14/2015 4 - Hives Comments: Black out and dizziness Date Reviewed: 01/08/2018 Reviewed by: Vickie Carrillo Ma - Fully Assessed Reason for Visit: F/U 3 Month [443] Cmt: COPD, Anxiety, HTN and Lipid Primary Visit Diagnosis:Anxiety [F41.9] Other Visit Diagnoses:Essential hypertension [I10] Hyperlipidemia, mixed [E78.2] ASCVD (arteriosclerotic cardiovascular disease) [I25.10] Chronic obstructive pulmonary disease, unspecified COPD type (HCC) [J44.9] Elevated blood sugar [R73.9] Prescriptions as of 01/08/2018 Sig: METOPROLOL TARTRATE 50 MG TAB* TAKE HALF A TABLET BY MOUTH F* LORAZEPAM 1 MG TABLET Take 1 tablet by mouth three * LISINOPRIL 5 MG TABLET TAKE 1 TABLET BY MOUTH ONCE D* NITROGLYCERIN 0.4 MG SUBLINGU* Dissolve 1 tablet under the t* DULERA 200 MCG-5 MCG/ACTUATIO* Take 2 Puffs by mouth twice d* ATORVASTATIN 20 MG TABLET TAKE ONE TABLET BY MOUTH ONCE* TIOTROPIUM BROMIDE 18 MCG CAP* Inhale 1 capsule as instructe* CLOPIDOGREL 75 MG TABLET TAKE ONE TABLET BY MOUTH ONCE* ALBUTEROL SULFATE 2.5 MG/0.5 * Inhale 2.5-5 mg as instructed* ALBUTEROL SULFATE HFA 90 MCG/* Inhale 2 Puffs as instructed * ASPIRIN 81 MG TABLET Take one (1) tablet daily . Problem List As Of Date 01/08/2018 Noted Resolved Hyperlipidemia, Mixed [E78.2] INVALID FOR* Prostate cancer (HCC) [C61] INVALID FOR* ASCVD (arteriosclerotic cardiovascular disease)*INVALID FOR* Hypertrophy of prostate with urinary obstructio*INVALID FOR* Chronic obstructive pulmonary disease (HCC) [J4*INVALID FOR* Essential hypertension [I10] INVALID FOR* Anxiety [F41.9] INVALID FOR* Disposition: Return in about 3 months (around 04/10/2018). Follow-up and Disposition History Recorded Encounter Status:Closed by MEI PEREZ MD on 01/08/18 PULMONARY VISIT REPORT Observed: 01/07/2018 Status: F Source: [place] 3:59 PM [facility] [address] [place] [address] OFFICE VISIT Date of Service: 01/06/18 MR#: [id number] Acct: [id number] Name: HAL CORLEY Rep #: [id number] : 1940 Provider: Karol Hurtado Age/Sex: 77/M Location: [facility] Status: Signed Assessment AND Plan 1. Bronchiectasis with acute exacerbation J47.1 Plan Improved, return to baseline. Continue current maintenance medications. Continue vest therapy twice daily. Contact the office with any new or worsening symptoms. Annual flu vaccine current, pneumonia vaccine current. Follow-up with Dr. Calvillo in 3 months. Plan Detail Follow Up 3 Months (DMB) HPI 6 wk FU: Chief Complaint: Postnasal drip HPI Comments Details: This patient presents to the office today to follow-up after recently being treated for an exacerbation of his bronchiectasis. He completed the antibiotic as prescribed. He completed the prednisone taper. He is ambulatory, currently on room air and accompanied by his . He continues to have clear nasal drainage most frequently in the morning. He reports shortness of breath on exertion, but believes it has slightly improved since his last office visit. He has some mild chest tightness but this has also improved since using the chest physiotherapy vest twice daily. He does have a cough that is productive of white sputum, noted that yesterday evening he did have a slight yellow tinge. Since using his chest physiotherapy vest twice daily, and completing the antibiotics, he has not needed to use his albuterol rescue inhaler or nebulizer. He is compliant with Dulera, 2 puffs twice daily. He does rinse his mouth out after each use and denies any medication side effects such as sore throat or thrush. He also uses Spiriva daily. He was placed on Flonase for the postnasal drip, did not notice a difference after using it for several weeks and stopped using it. Currently, he denies any wheezing, chest tightness or chest pain. He has not experienced any fever, chills or body aches. See complete review of systems. 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 Accompanied by: Is patient in pain?: No Allergies isosorbide [From Imdur] Allergy (Verified 01/06/18 11:18) Other-patient blacks out Medications Aspirin [Aspirin, Baby] 81 mg PO DAILY@0800 12/29/14 [History Confirmed 01/06/18] Atorvastatin Calcium [Lipitor] 20 mg PO QHS 12/29/14 [History Confirmed 01/06/18] Lorazepam [Ativan] 1 mg PO TID PRN PRN 12/29/14 [History Confirmed 01/06/18] Metoprolol Tartrate 25 mg PO 4X/DAY 12/29/14 [History Confirmed 01/06/18] Nitroglycerin [Nitrostat] 0.4 mg SL PRN PRN 12/29/14 [History Confirmed 01/06/18] Albuterol Inhaler [Ventolin Hfa] 2 puff INHALATION Q4H PRN PRN 04/19/16 [History Confirmed 01/06/18] Clopidogrel Bisulfate [Plavix] 75 mg PO DAILY 04/19/16 [History Confirmed 01/06/18] albuterol sulfate 2.5 mg/3 mL (0.083 %) solution for nebulization 2.5 mg INHALATION Q4H PRN ml 04/03/17 [History Confirmed 01/06/18] pseudoephedrine-guaifenesin ER 120 mg-1,200 mg tab,extend release 12hr 1 tab PO Q12H 04/03/17 [History Confirmed 01/06/18] tiotropium bromide 2.5 mcg/actuation mist for inhalation 2 puff INHALATION Q24H #1 device 04/08/17 [Rx Confirmed 01/06/18] mometasone-formoterol HFA 200 mcg-5 mcg/actuation aerosol inhaler 2 puff INHALATION BID #13 g 07/28/17 [Rx Confirmed 01/06/18] guaifenesin ER 1,200 mg tablet, extended release 12 hr 1,200 mg PO Q12H #60 tab 08/12/17 [Rx Confirmed 01/06/18] fluticasone 50 mcg/actuation nasal spray,suspension 2 spray INTRANASAL DAILY #16 g 08/27/17 [Rx Confirmed 01/06/18] lisinopril 5 mg tablet 5 mg PO DAILY tab 11/24/17 [History Confirmed 01/06/18] Handicap Placard #1 [id number] 12/15/17 [Rx Confirmed 01/06/18] levofloxacin 750 mg tablet 750 mg PO DAILY #14 tab 12/15/17 [Rx Confirmed 01/06/18] prednisone 20 mg tablet 40 mg PO DAILY #10 tab 12/15/17 [Rx Confirmed 01/06/18] [facility] Medical History SOB (shortness of breath) (Acute) Cough (Chronic) 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 (Chronic) Chronic hypoxemic respiratory failure (Chronic) Bronchiectasis (Acute) Benign essential HTN (Chronic) HLD (hyperlipidemia) (Chronic) CAD (coronary artery disease) (Chronic) Hypotension (Acute) Prostate CA (Chronic) COPD (chronic obstructive pulmonary disease) (Acute) Influenza B (Acute) Social History Smoking Status: Former smoker how long ago did patient quit smokin, second hand exposure: Yes alcohol intake: never substance use type: does not use Review of Systems Const CONSTITUTIONAL: Positive fatigue; negative anorexia, body ache, chills, daytime sleepiness, fever(s), night sweats, oral thrush, stops breathing during sleep, weight loss, sleeping in chair, weight loss, weight gain, frequent colds, seasonal allergies, other, headache(s) or orthopnea EETM Ear Nose Throat Mouth: Positive hearing normal and nasal discharge; negative hard of hearing, hoarseness, dry mouth in morning, change in vision, itchy eyes, eye pain, swallowing Difficulty, ear pain, nose bleed, headache(s), mouth pain, nasal congestion, post nasal drip, sinus pain, sinus pressure, sore throat or other Cardio Cardiovascular: Negative chest pain, chest pain at rest, chest pain with activity, irregular heart rhythm, edema, shortness of breath when lying down, palpitations, murmur or other Resp Respiratory: Positive as per HPI; negative shortness of breath, pain with cough, wheezing, chest congestion, cough, chest tightness, pain on inspiration, inhalers, increase use of rescue inhalers, snoring, apnea or other Gastro Gastrointestional: Negative bloody stools, change in appetite, difficulty swallowing, reflux, hematemesis, melena stool, loose stool, constipation or other Genitourinary: Negative blood in urine, nocturia, pain with urination or other Musc Musculoskeletal: Negative body pain, back pain, neck pain or other Skin/Breast Skin/Breast: Negative dry skin, itching, rash, unusual bruising, breast lump or other Neuro Neurological: Negative restless legs, confusion, weakness or other Psych Psychocological: Negative abnormal sleep pattern, anxiety, thoughts of hurting self/others, hopelessness or other Lymph Lymphatic: Negative easy bleeding, easy bruising, swollen lymph nodes or other Exam Const Constitutional: Positive conversant, cooperative, in no acute respiratory distress, healthy appearing, well developed, well nourished and good hygiene Head Head: Positive normocephalic and atraumatic; negative cyanosis of lips/distal nose Eyes Eye: Positive clear conjunctiva; negative nystagmus or scleral abnormality Ears Ear: Positive hearing normal and external ears normal; negative hard of hearing Nose Nose: Positive external nose normal and no nasal discharge; negative epistaxis Mouth Mouth: Positive oral mucosae normal, no lesions, dentures and posterior oropharynx is adequate; negative post nasal drip, malodorous breath or oral thrush present Mallampati Score: II: Mallampati Score Neck Neck: Positive normal visual inspection, full ROM and trachea midline; negative lymphadenopathy, JVD or tender Chest Wall Chest: Positive symmetric chest movement and increased A/P diameter Resp lung sounds: Positive clear to auscultation, good air exchange, normal expiratory time and normal respiratory effort; negative diminished, wheezes, rhonchi, rales, dullness to percussion or wheeze present on forced exhalation Cardio Cardiac: Positive regular rate, regular rhythm, S1 normal and S2 normal; negative murmur GI GI: Positive normal to inspection; negative distended Genitourinary: Positive deferred Musc Musculoskeletal: Positive steady gait and ROM normal; negative kyphosis or scoliosis Skin Pulmonary Skin Exam: Positive intact; negative rash Pulses Pulse: Yes pulses normal x4 extremities Extremities Extremities: Yes capillary refill normal, No clubbing, No cyanosis, No edema Neuro Neurologic: Yes conversant, Yes no focal neuro deficits, Yes understands questions, Yes cooperative, Yes normal concentration, Yes normal cognition, Yes normal coordination Lymph Lymphatic: No lymphadenopathy, No tenderness, No cervical adenopathy Psych Appearance: Positive grossly normal, eye contact and well kempt Mental Status: Positive mental status grossly normal Mood: Positive congruent mood Affect: Positive normal affect Coding Level of Care Code Off vis,est,level 3 Diagnoses Bronchiectasis with acute exacerbation J47.1 Bronchiectasis type: with acute exacerbation 01/07/18 1559 <Electronically signed by Karol Hurtado NP-C> Date Karol Hurtado TYPING TEACHER-C Cosigner Signature: Date (if applicable) CC: Mei Perez MD COMP METABOLIC PANEL Collected: 01/04/2018 Status: F Source: [place] 11:01 AM [facility] REPOSITORY TYPE CODE TESTS RESULT OUT OF REFERENCE UNITS RANGE LAB TP 6.3-8.0 g/dL Test reordered by Protein, [facility]. Total Result Comment: [id number] RAN Account Credited LAB ALB 3.9-4.9 g/dL Test Albumin reordered by [facility]. Result Comment: [id number] RAN Account Credited LAB CA 8.5-10.2 mg/dL Test Calcium, Total reordered by [facility]. Result Comment: [id number] RAN Account Credited LAB TBIL 0.2-1.3 mg/dL Bilirubin, Test Total reordered by [facility]. Result Comment: [id number] RAN Account Credited LAB ALKP 38-113 U/L Alkaline Test Phosphatase reordered by [facility]. Result Comment: [id number] RAN Account Credited LAB AST 14-40 U/L Test AST reordered by [facility]. Result Comment: [id number] RAN Account Credited LAB GLU 74-99 mg/dL Test Glucose reordered by [facility]. Result Comment: [id number] RAN Account Credited LAB BUN 9-24 mg/dL Test BUN reordered by [facility]. Result Comment: [id number] RAN Account Credited LAB CRET 0.73-1.22 mg/dL Creatinine Test reordered by [facility]. Result Comment: [id number] RAN Account Credited LAB NA 136-144 mmol/L Test Sodium reordered by [facility]. Result Comment: [id number] RAN Account Credited LAB K 3.7-5.1 mmol/L Test Potassium reordered by [facility]. Result Comment: [id number] RAN Account Credited LAB CL 97-105 mmol/L Test Chloride reordered by [facility]. Result Comment: [id number] RAN Account Credited LAB CO2 22-30 mmol/L Test CO2 reordered by [facility]. Result Comment: [id number] RAN Account Credited LAB AGAP 9-18 mmol/L Test Anion Gap reordered by [facility]. Result Comment: [id number] RAN Account Credited LAB ALT 10-54 U/L Test ALT reordered by [facility]. Result Comment: [id number] RAN Account Credited LAB GFRAA eGFR- Amer. Test reordered by [facility]. Result Comment: [id number] RAN Account Credited LAB GFRNAA . eGFR-All Test Other Races reordered by [facility]. Result Comment: [id number] RAN Account Credited LAB GFRPED eGFR-Ped. Test Factor reordered by [facility]. Result Comment: [id number] RAN Account Credited Performed By: #### CMP #### [facility] [address] [id number] HEMOGLOBIN A1C Collected: 01/04/2018 Status: F Source: [place] 11:01 [facility] REPOSITORY TYPE CODE TESTS RESULT OUT OF REFERENCE UNITS RANGE LAB HGBA1C 4.3-5.6 % Hemoglobin A1c 5.5 LAB HBA0 mg/dL Est. Average Glucose 111 Result Comment: eAG: (Estimated average glucose) is a calculated value from HgbA1c and is patient care representative of the average blood glucose level in the last 2-3 month period. Performed By: #### HBA1C, LIPB #### [facility] [address] [place], [place] [address] LIPID PANEL, BASIC Collected: 01/04/2018 Status: F Source: [place] 11:01 AM [facility] REPOSITORY TYPE CODE TESTS RESULT OUT OF REFERENCE UNITS RANGE LAB CHOL <200 mg/dL Cholesterol 172 Result Comment: <200 mg/dL, Desirable 200-239 mg/dL, Borderline high >239 mg/dL, High LAB TRIGLY <150 mg/dL Triglyceride High 191 Result Comment: <150 mg/dL, Normal 150-199 mg/dL, Borderline high 200-499 mg/dL, High >499 mg/dL, Very high LAB HDL >39 mg/dL HDL-Cholesterol Low 39 Result Comment: 40-59 mg/dL, Acceptable >59 mg/dL, High: Negative risk factor for coronary heart disease <40 mg/dL, Low: Positive risk factor for coronary heart disease LAB LDL <100 mg/dL LDL-Cholesterol 95 Result Comment: <100 mg/dL, Optimal 100-129 mg/dL, Near optimal/above optimal 130-159 mg/dL, Borderline high 160-189 mg/dL, High >189 mg/dL, Very high Secondary prevention optimal LDL Cholesterol levels are recommended to be < 70 mg/dL LAB NONHDL <130 mg/dL Non HDL High Cholesterol 133 Result Comment: <130 mg/dL, Optimal 130-159 mg/dL, Near optimal/above optimal 160-189 mg/dL, Borderline high 190-219 mg/dL, High >219 mg/dL, Very high Secondary prevention optimal non HDL Cholesterol levels are recommended to be < 100 mg/dL LAB FT hrs Fasting Time 12 LAB VLDL <30 mg/dL High VLDL Cholesterol 38 LAB TCHDL <5.10 TC:HDL Ratio 4.41 LAB LDLHDL <2.54 LDL:HDL Ratio 2.44 Result Comment: Reference: 1. National Cholesterol Education Program ATP III Guideline At-A-Glance Quick Desk Reference: National Heart, Lung, and Blood [place]. National Institutes of Health. 2001: NIH Publication No. 01-3305. 2. An International Atherosclerosis Society position paper: global recommendations for the management of dyslipidemia: executive summary, Atherosclerosis. 2014: 232(2):410-413. Performed By: #### HBA1C, LIPB #### [facility] [address] [place], [place] [address] COMP METABOLIC PANEL Collected: 01/04/2018 Status: F Source: [place] 11:01 AM [facility] REPOSITORY TYPE CODE TESTS RESULT OUT OF REFERENCE UNITS RANGE LAB TP 6.3-8.0 g/dL Protein, Total 6.4 LAB ALB 3.9-4.9 g/dL Albumin 4.1 LAB CA 8.5-10.2 mg/dL Calcium, Total 9.1 LAB TBIL 0.2-1.3 mg/dL Bilirubin, Total 0.6 LAB ALKP 38-113 U/L Alkaline Phosphatase 61 LAB AST 14-40 U/L AST 22 LAB GLU 74-99 mg/dL Glucose High 141 Result Comment: The [place] Diabetes Association (ADA) provides guidance for cutoff values for fasting glucose and random glucose. The ADA defines fasting as no caloric intake for at least 8 hours. Fas ting plasma glucose results between 100 to 125 mg/dL indicate increased risk for diabetes (prediabetes). Fasting plasma glucose results greater than or equal to 126 mg/dL meet the criteria for diagnosis of diabetes. In the absence of unequivocal hyperglycemia, results should be confirmed by repeat testing. In a patient with classic symptoms of hyperglycemia or hyperglycemic crisis, random plasma glucose results greater than or equal to 200 mg/dL meet the criteria for diagnosis of diabetes. Reference: Standards of Medical Care in Diabetes 2016, [place] Diabetes Association. Diabetes Care. 2016.39(Suppl 1). LAB BUN 9-24 mg/dL BUN 18 LAB CRET 0.73-1.22 mg/dL Creatinine 1.05 LAB NA 136-144 mmol/L Sodium 139 LAB K 3.7-5.1 mmol/L Potassium 4.7 LAB CL 97-105 mmol/L Chloride 102 LAB CO2 22-30 mmol/L CO2 23 LAB AGAP 9-18 mmol/L Anion Gap 14 LAB ALT 10-54 U/L ALT 16 LAB GFRAA eGFR- Amer. >60 LAB GFRNAA . eGFR-All Other Races >60 Result Comment: eGFR (Estimated GFR) Units of measure: mL/min/1.73 meters squared eGFR is derived from the reexpressed MDRD Study equation using the following parameters: serum creatinine, age, gender and race. The creatinine assay has been calibrated to be traceable to IDMS. An eGFR <60 mL/min/1.73m2 for >3 months is consistent with chronic kidney disease. Refer to KDOQI guidelines for clinical interpretation. In patients with unstable renal function, e.g. those with acute kidney injury, the eGFR may not accurately reflect actual GFR. Performed By: #### CMP #### [facility] [address] [place], [place] [address] PULMONARY VISIT REPORT Observed: 12/15/2017 Status: F Source: [place] 2:17 PM [facility] [address] [place] [address] OFFICE VISIT Date of Service: 12/15/17 MR#: [id number] Acct: [id number] Name: HAL CORLEY Rep #: [id number] : 1940 Provider: Yong Calvillo D.O. Age/Sex: 77/M Location: [facility] Status: Signed Assessment AND Plan 1. Stage 3 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 J44.9 Plan Continue current triple therapy inhaler regimen without change. 2. Bronchiectasis with acute exacerbation J47.1 Plan The patient is symptomatically improving with the use of twice daily vest therapy. A sputum culture collected 6 days ago did reveal 3+ pansensitive Pseudomonas, for which the patient will be placed on Levaquin to complete a 14-day treatment course. He will also be placed on a 5-day prednisone burst to help facilitate his recovery. Patient currently has a scheduled follow-up office visit with our nurse practitioner during the first week in December. His symptom response to therapy will be reassessed at that time. Plan Detail Other Medications New: Follow Up As Scheduled with [facility] HPI HPI Comments Details: The patient is a 77-year-old male who presents to the clinic today for a routine scheduled follow-up office visit. If you recall, the patient has a known history of COPD. He has a prior smoking history of 2-3 packs per day 45 years, having quit completely 14 years ago. The patient does have a history of coronary artery disease for which he is status post three- vessel CABG in January 2000. His last surface echocardiogram showed normal LV size and function with an ejection fraction of 65%. The RVSP was unable to be estimated. CTA chest, dated April 2016, showed no evidence for PE. 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 A repeat 6 minute walk test was completed in March 2017 showed no need for supplemental oxygen with exertion. Repeat pulmonary function tests were also completed at that time and again demonstrated the presence of an irreversible severe large airways obstructive ventilatory defect with a symmetric reduction in diffusing capacity. Today, the patient reports some interval improvement in his overall breathing quality, since being started on vest therapy at his last office visit. A sputum culture collected 6 days ago did reveal 3+ pansensitive Pseudomonas. The patient does report a continued cough, which continues to be productive of sputum. He continues to utilize Dulera, Spiriva and as needed albuterol. He does have continued baseline, chronic exertional shortness of breath and occasional chest tightness. He is currently utilizing his vest therapy twice daily. His weight has remained stable. He denies fevers, chills or night sweats. 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 Accompanied by: Is patient in pain?: No Allergies isosorbide [From Imdur] Allergy (Verified 12/15/17 07:12) Other Medications Aspirin [Aspirin, Baby] 81 mg PO DAILY@0800 12/29/14 [History Confirmed 12/15/17] Atorvastatin Calcium [Lipitor] 20 mg PO QHS 12/29/14 [History Confirmed 12/15/17] Lorazepam [Ativan] 1 mg PO TID PRN PRN 12/29/14 [History Confirmed 12/15/17] Metoprolol Tartrate 25 mg PO 4X/DAY 12/29/14 [History Confirmed 12/15/17] Nitroglycerin [Nitrostat] 0.4 mg SL PRN PRN 12/29/14 [History Confirmed 12/15/17] Albuterol Inhaler [Ventolin Hfa] 2 puff INHALATION Q4H PRN PRN 04/19/16 [History Confirmed 12/15/17] Clopidogrel Bisulfate [Plavix] 75 mg PO DAILY 04/19/16 [History Confirmed 12/15/17] albuterol sulfate 2.5 mg/3 mL (0.083 %) solution for nebulization 2.5 mg INHALATION Q4H PRN ml 04/03/17 [History Confirmed 12/15/17] pseudoephedrine-guaifenesin ER 120 mg-1,200 mg tab,extend release 12hr 1 tab PO Q12H 04/03/17 [History Confirmed 12/15/17] tiotropium bromide 2.5 mcg/actuation mist for inhalation 2 puff INHALATION Q24H #1 device 04/08/17 [Rx Confirmed 12/15/17] mometasone-formoterol HFA 200 mcg-5 mcg/actuation aerosol inhaler 2 puff INHALATION BID #13 g 07/28/17 [Rx Confirmed 12/15/17] guaifenesin ER 1,200 mg tablet, extended release 12 hr 1,200 mg PO Q12H #60 tab 08/12/17 [Rx Confirmed 12/15/17] fluticasone 50 mcg/actuation nasal spray,suspension 2 spray INTRANASAL DAILY #16 g 08/27/17 [Rx Confirmed 12/15/17] lisinopril 5 mg tablet 5 mg PO DAILY tab 11/24/17 [History Confirmed 12/15/17] Handicap Placard #1 [id number] 12/15/17 [Rx Confirmed 12/15/17] levofloxacin 750 mg tablet 750 mg PO DAILY #14 tab 12/15/17 [Rx Confirmed 12/15/17] prednisone 20 mg tablet 40 mg PO DAILY #10 tab 12/15/17 [Rx Confirmed 12/15/17] PFSH Medical History SOB (shortness of breath) (Acute) Cough (Chronic) 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 (Chronic) Chronic hypoxemic respiratory failure (Chronic) Bronchiectasis (Acute) Benign essential HTN (Chronic) HLD (hyperlipidemia) (Chronic) CAD (coronary artery disease) (Chronic) Hypotension (Acute) Prostate CA (Chronic) COPD (chronic obstructive pulmonary disease) (Acute) Influenza B (Acute) Social History Smoking Status: Former smoker how long ago did patient quit smokin, second hand exposure: Yes alcohol intake: never substance use type: does not use Review of Systems Const CONSTITUTIONAL: Negative anorexia, body ache, chills, daytime sleepiness, fever(s), night sweats, oral thrush, stops breathing during sleep, weight loss, sleeping in chair, fatigue, weight loss, weight gain, frequent colds, seasonal allergies, other, headache(s) or orthopnea EETM Ear Nose Throat Mouth: Positive hearing normal; negative hard of hearing, hoarseness, dry mouth in morning, change in vision, itchy eyes, eye pain, swallowing Difficulty, ear pain, nose bleed, headache(s), mouth pain, nasal congestion, nasal discharge, post nasal drip, sinus pain, sinus pressure, sore throat or other Cardio Cardiovascular: Negative chest pain, chest pain at rest, chest pain with activity, irregular heart rhythm, edema, shortness of breath when lying down, palpitations, murmur or other Resp Respiratory: Positive as per HPI, shortness of breath shortness of breath: Positive with activity, cough cough: Positive productive color: Positive yellow, chest tightness and inhalers; negative pain with cough, wheezing, chest congestion, pain on inspiration, increase use of rescue inhalers, snoring, apnea or other Gastro Gastrointestional: Negative bloody stools, change in appetite, difficulty swallowing, reflux, hematemesis, melena stool, loose stool, constipation or other Genitourinary: Negative blood in urine, nocturia, pain with urination or other Musc Musculoskeletal: Negative body pain, back pain, neck pain or other Skin/Breast Skin/Breast: Negative dry skin, itching, rash, unusual bruising, breast lump or other Neuro Neurological: Negative restless legs, confusion, weakness or other Psych Psychocological: Negative abnormal sleep pattern, anxiety, thoughts of hurting self/others, hopelessness or other Lymph Lymphatic: Negative easy bleeding, easy bruising, swollen lymph nodes or other Exam Const Constitutional: Positive conversant, cooperative, in no acute respiratory distress, well developed, well nourished and good hygiene Head Head: Positive normocephalic and atraumatic; negative cyanosis of lips/distal nose Eyes Eye: Positive clear conjunctiva; negative nystagmus or scleral abnormality Ears Ear: Positive hearing normal and external ears normal; negative hard of hearing Nose Nose: Positive external nose normal; negative epistaxis Mouth Mouth: Positive oral mucosae normal, no lesions and posterior oropharynx is adequate; negative post nasal drip Mallampati Score: II: Mallampati Score Neck Neck: Positive normal visual inspection and trachea midline; negative lymphadenopathy Chest Wall Chest: Positive symmetric chest movement Normal AP diameter. Resp lung sounds: Positive clear to auscultation, good air exchange and normal expiratory time; negative wheezes, rhonchi or rales Cardio Cardiac: Positive regular rate, regular rhythm, S1 normal and S2 normal; negative murmur, rub or gallop GI GI: Positive normal bowel sounds Soft without distention Genitourinary: Positive deferred Musc Musculoskeletal: Positive steady gait Skin Pulmonary Skin Exam: Positive intact; negative rash, lesion or ulcers Pulses Pulse: Yes Pedal pulses present: Extremities Extremities: No clubbing, No cyanosis, No edema Neuro Neurologic: Yes conversant, Yes no focal neuro deficits, Yes cooperative Lymph Lymphatic: No lymphadenopathy Psych Appearance: Positive grossly normal Mental Status: Positive mental status grossly normal Mood: Positive congruent mood Affect: Positive normal affect Coding Level of Care Code Off vis,est,level 3 Diagnoses 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 Yes (<25 Epithelial cells per/lpf) Gram Stain 3+ Gram positive cocci 2+ Gram negative rods Rare Epithelial cells 1+ White Blood Cells Resp. Culture ORGANISM 1: Pseudomonas spp Amount Growth 3+ ORGANISM 2: Sphingomonas paucimobilis Amount Growth 3+ Pseudomonas spp: REACTION Cefepime $ 2 S Ceftazidime *NF 4 S Gentamicin $ <=1 S Imipenem *NF 8 I Levofloxacin $ <=0.12 S Piperacillin/Tazobactam $$ 8 S Tobramycin $ <=1 S (NF) indicates non-formulary drug at [facility]. Approval by Infectious Disease Specialist required before non-formulary drugs may be ordered and/or dispensed. Sphingomonas paucimobilis: REACTION Cefepime $ >=64 R Ceftazidime *NF 8 S Ceftriaxone $ >=64 R Ciprofloxacin $ 1 S Gentamicin $ 8 I Imipenem *NF >=16 R Levofloxacin $ 1 S Piperacillin/Tazobactam $$ >=128 R Tobramycin $ 8 I Trimethoprim/Sulfametho $ <=20 S (NF) indicates non-formulary drug at [facility]. Approval by Infectious Disease Specialist required before non-formulary drugs may be ordered and/or dispensed. Performed By: #### [id number] #### [facility] [address] [place], [address] PULMONARY VISIT REPORT Observed: 11/25/2017 Status: F Source: [place] 4:07 [facility] REPOSITORY [facility] [address] [place] [address] OFFICE VISIT Date of Service: 11/24/17 MR#: [id number] Acct: [id number] Name: HAL CORLEY Rep #: [id number] : 1940 Provider: Karol Hurtado Age/Sex: 77/M Location: [facility] Status: Signed Assessment AND Plan 1. Bronchiectasis with acute exacerbation J47.1 Plan Deteriorated. Acapella has not been successful in assisting the patient to prevent recurrent exacerbations. The patient has had at least 3 exacerbations since March of this year. Continue current maintenance medications. The patient's is unable to perform percussion as necessary to treat his bronchiectasis, Acapella has failed, therefore he will be progressed to a chest physiotherapy vest. No antibiotics or prednisone today. Follow-up in 6 weeks to evaluate how he has responded to vest therapy. He has been provided with a sputum specimen cup, if the patient's sputum begins to change colors again he has been advised to obtain a sample and submitted to our lab for culture and sensitivity results. Continue Mucinex. Call the office with any new or worsening symptoms in the meantime. He is current on his flu vaccination for this year. 2. 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 Continue current maintenance medications. No additional testing at this time. Follow-up in 6 weeks. 3. Postnasal drip R09.82 Plan Continue Flonase. Plan Detail Other Orders Orders: Follow Up 6 Weeks ([facility]) HPI 1 M FU: Chief Complaint: Cough HPI Comments Details: This patient presents to the office today to follow-up on his severe COPD. He is ambulatory and currently on room air. The patient was recently treated for an exacerbation of his COPD and bronchiectasis with antibiotics and prednisone. He reports that temporarily he felt better after completing the antibiotic and prednisone but just a few days after completing the prednisone his symptoms began to return. Currently, he reports that he feels a tiny bit worse than his last office visit. He continues to experience shortness of breath on exertion, denies any shortness of breath with rest or conversation. He also continues to have chest tightness and a cough that is persistent and productive of yellow sputum. His cough is more prevalent at night. He does report clear nasal drainage and a postnasal drip. He would like to evaluate the possibility of being placed on a low dose antibiotic all the time. He is compliant with Dulera twice a day. He reports rinsing his mouth out after each use. He denies any medication side effects such as sore throat or thrush. He is also compliant with Spiriva daily. He is also using Flonase daily, denies any medication side effects such as epistaxis. He is also taking Mucinex twice daily, believes that it is loosening some of the secretions and making it easier for him to expectorate them. He does have an Acapella and uses it at least once daily, sometimes more frequently. He reports that the Acapella does not elicit much of a cough for him and does not seem to be effective. He is using his albuterol rescue inhaler approximately 3 days/week. He has not added any [id number] medications to try to treat his symptoms. He denies any chest pain or palpitations. He has occasional lower extremity edema. He has not experienced any fever, chills or body aches. See complete review of systems. 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 Accompanied by: Is patient in pain?: No Allergies isosorbide [From Imdur] Allergy (Verified 11/24/17 07:01) Other Medications Aspirin [Aspirin, Baby] 81 mg PO DAILY@0800 12/29/14 [History Confirmed 11/24/17] Atorvastatin Calcium [Lipitor] 20 mg PO QHS 12/29/14 [History Confirmed 11/24/17] Lorazepam [Ativan] 1 mg PO TID PRN PRN 12/29/14 [History Confirmed 11/24/17] Metoprolol Tartrate 25 mg PO 4X/DAY 12/29/14 [History Confirmed 11/24/17] Nitroglycerin [Nitrostat] 0.4 mg SL PRN PRN 12/29/14 [History Confirmed 11/24/17] Albuterol Inhaler [Ventolin Hfa] 2 puff INHALATION Q4H PRN PRN 04/19/16 [History Confirmed 11/24/17] Clopidogrel Bisulfate [Plavix] 75 mg PO DAILY 04/19/16 [History Confirmed 11/24/17] albuterol sulfate 2.5 mg/3 mL (0.083 %) solution for nebulization 2.5 mg INHALATION Q4H PRN ml 04/03/17 [History Confirmed 11/24/17] pseudoephedrine-guaifenesin ER 120 mg-1,200 mg tab,extend release 12hr 1 tab PO Q12H 04/03/17 [History Confirmed 11/24/17] tiotropium bromide 2.5 mcg/actuation mist for inhalation 2 puff INHALATION Q24H #1 device 04/08/17 [Rx Confirmed 11/24/17] mometasone-formoterol HFA 200 mcg-5 mcg/actuation aerosol inhaler 2 puff INHALATION BID #13 g 07/28/17 [Rx Confirmed 11/24/17] guaifenesin ER 1,200 mg tablet, extended release 12 hr 1,200 mg PO Q12H #60 tab 08/12/17 [Rx Confirmed 11/24/17] fluticasone 50 mcg/actuation nasal spray,suspension 2 spray INTRANASAL DAILY #16 g 08/27/17 [Rx Confirmed 11/24/17] lisinopril 5 mg tablet 5 mg PO DAILY tab 11/24/17 [History Confirmed 11/24/17] [facility] Medical History SOB (shortness of breath) (Acute) Cough (Chronic) 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 (Chronic) Chronic hypoxemic respiratory failure (Chronic) Bronchiectasis (Acute) Benign essential HTN (Chronic) HLD (hyperlipidemia) (Chronic) CAD (coronary artery disease) (Chronic) Hypotension (Acute) Prostate CA (Chronic) COPD (chronic obstructive pulmonary disease) (Acute) Influenza B (Acute) Social History Smoking Status: Former smoker how long ago did patient quit smokin, second hand exposure: Yes alcohol intake: never substance use type: does not use Review of Systems Const CONSTITUTIONAL: Negative anorexia, body ache, chills, daytime sleepiness, fever(s), night sweats, oral thrush, stops breathing during sleep, weight loss, sleeping in chair, fatigue, weight loss, weight gain, frequent colds, seasonal allergies, other, headache(s) or orthopnea EETM Ear Nose Throat Mouth: Positive nasal discharge and hearing normal; negative hoarseness, dry mouth in morning, change in vision, itchy eyes, eye pain, swallowing Difficulty, ear pain, headache(s), mouth pain, nasal congestion, sinus pain, sinus pressure, sore throat, other, hard of hearing, nose bleed or post nasal drip Cardio Cardiovascular: Negative chest pain, chest pain at rest, chest pain with activity, irregular heart rhythm, edema, shortness of breath when lying down, palpitations, other or murmur Resp Respiratory: Positive as per HPI, shortness of breath, cough cough: Positive productive color: Positive yellow and inhalers; negative pain with cough, wheezing, chest congestion, chest tightness, pain on inspiration, increase use of rescue inhalers, snoring, apnea or other Gastro Gastrointestional: Negative bloody stools, change in appetite, difficulty swallowing, reflux, hematemesis, melena stool, loose stool, constipation or other Genitourinary: Negative blood in urine, nocturia, pain with urination or other Musc Musculoskeletal: Negative body pain, back pain, neck pain or other Skin/Breast Skin/Breast: Negative dry skin, itching, rash, unusual bruising, breast lump or other Neuro Neurological: Positive weakness; negative restless legs, confusion or other Psych Psychocological: Negative abnormal sleep pattern, anxiety, thoughts of hurting self/others, hopelessness or other Lymph Lymphatic: Negative easy bleeding, easy bruising, swollen lymph nodes or other Exam Const Constitutional: Positive cooperative, in no acute respiratory distress, healthy appearing, well developed, well nourished, good hygiene and conversant Head Head: Positive normocephalic and atraumatic; negative cyanosis of lips/distal nose Eyes Eye: Positive clear conjunctiva; negative nystagmus or scleral abnormality Ears Ear: Positive hearing normal and external ears normal; negative hard of hearing Nose Nose: Positive external nose normal and no nasal discharge; negative epistaxis Mouth Mouth: Positive oral mucosae normal, no lesions, dentures and posterior oropharynx is adequate; negative post nasal drip, malodorous breath or oral thrush present Mallampati Score: II: Mallampati Score Neck Neck: Positive normal visual inspection, full ROM and trachea midline; negative lymphadenopathy, JVD or tender Chest Wall Chest: Positive normal inspection of the chest and symmetric chest movement; negative increased A/P diameter Resp lung sounds: Positive diminished, wheeze present on forced exhalation, normal expiratory time and normal respiratory effort; negative rhonchi, rales or dullness to percussion Cardio Cardiac: Positive regular rate, regular rhythm, S1 normal and S2 normal; negative murmur GI GI: Positive normal to inspection; negative distended Genitourinary: Positive deferred Musc Musculoskeletal: Positive steady gait and ROM normal; negative kyphosis or scoliosis Skin Pulmonary Skin Exam: Positive intact; negative rash Pulses Pulse: Yes pulses normal x4 extremities Extremities Extremities: Yes capillary refill normal, No clubbing, No cyanosis, No edema Neuro Neurologic: Yes conversant, Yes no focal neuro deficits, Yes normal concentration, Yes understands questions, Yes cooperative, Yes normal cognition, Yes normal coordination Lymph Lymphatic: No lymphadenopathy, No tenderness, No cervical adenopathy Psych Appearance: Positive grossly normal, eye contact and well kempt Mental Status: Positive mental status grossly normal Mood: Positive congruent mood Affect: Positive normal affect Coding Level of Care Code Off vis,est,level 4 Diagnoses Bronchiectasis with acute exacerbation J47.1 Bronchiectasis type: with acute exacerbation Stage 3 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 J44.9 Postnasal drip R09.82 11/25/17 1607 <Electronically signed by Karol Hurtado TYPING TEACHER-C> Date Karol Hurtado NP-C Cosigner Signature: Date (if applicable) CC: Mei Perez MD OBSOLETE Observed: 11/13/2017 Status: COMPLETED Source: [place] 12:00 AM [facility] REPOSITORY Refill (AGCARDWST) HAL CORLEY ([id number]) 1940 M Date Time Provider Department 11/13/17 CARLOS DYE AGCARDWST During your visit today, we recorded the following information about you: Allergies As of Date: 11/13/2017 Noted Allergy Reaction IMDUR (ISOSORBIDE MONONITRATE) 03/14/2015 4 - Hives Comments: Black out and dizziness Date Reviewed: 09/01/2017 Reviewed by: Malu Tavares Ma - Fully Assessed Reason for Visit: Refill Request [94] Order(s):metoprolol tartrate, short acting, (LOPRESSOR) 50 mg tabletTAKE HALF A TABLET BY MOUTH FOUR TIMES DAILY.Disp: 180 tabletRfl: 3 Prescriptions as of 11/13/2017 Sig: METOPROLOL TARTRATE 50 MG TAB* TAKE HALF A TABLET BY MOUTH F* LORAZEPAM 1 MG TABLET Take 1 tablet by mouth three * LISINOPRIL 5 MG TABLET TAKE 1 TABLET BY MOUTH ONCE D* NITROGLYCERIN 0.4 MG SUBLINGU* Dissolve 1 tablet under the t* DULERA 200 MCG-5 MCG/ACTUATIO* Take 2 Puffs by mouth twice d* ATORVASTATIN 20 MG TABLET TAKE ONE TABLET BY MOUTH ONCE* TIOTROPIUM BROMIDE 18 MCG CAP* Inhale 1 capsule as instructe* CLOPIDOGREL 75 MG TABLET TAKE ONE TABLET BY MOUTH ONCE* ALBUTEROL SULFATE 2.5 MG/0.5 * Inhale 2.5-5 mg as instructed* ALBUTEROL SULFATE HFA 90 MCG/* Inhale 2 Puffs as instructed * ASPIRIN 81 MG TABLET Take one (1) tablet daily . Problem List As Of Date 11/13/2017 Noted Resolved Hyperlipidemia, Mixed [E78.2] INVALID FOR* Prostate cancer (HCC) [C61] INVALID FOR* ASCVD (arteriosclerotic cardiovascular disease)*INVALID FOR* Hypertrophy of prostate with urinary obstructio*INVALID FOR* Chronic obstructive pulmonary disease (HCC) [J4*INVALID FOR* Essential hypertension [I10] INVALID FOR* Anxiety [F41.9] INVALID FOR* Prescriptions ordered this encounter Disp Refills Start End METOPROLOL TARTRATE 50 MG TABLET 180 * 3 11/13/2017 Sig: TAKE HALF A TABLET BY MOUTH FOUR TIMES DAILY. Medications Discontinued During This Encounter metoprolol tartrate, short acting, (* 180 * 3 02/02/2017 11/13/2017 Route: ORAL Sig: Take 0.5 tablets by mouth four times daily. Disc: Reason for discontinue is not on file. Encounter Status:Closed by LEEANN FERGUSON MA on 11/13/17 PULMONARY VISIT REPORT Observed: 10/16/2017 Status: F Source: [place] 1:16 PM [facility] Pulmonary Medicine [address] [place] [address] OFFICE VISIT Date of Service: 10/16/17 MR#: [id number] Acct: [id number] Name: HAL CORLEY Rep #: [id number] : 1940 Provider: Karol Hurtado Age/Sex: 77/M Location: [facility] Status: Signed Assessment AND Plan Problems 1. Stage 3 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 J44.9 Plan Deteriorated. Treating for exacerbation of his COPD. Contact the office on Thursday morning to give us an update. Follow-up in 1 month. No change in maintenance medications, discontinue Singulair and Flonase since not effective. Medications New: Plan Detail Follow Up 1 Month ([facility]) HPI 1 M FU: Chief Complaint: Wheezing HPI Comments Details: This patient presents the office today to follow- up after recently being started on Singulair. He is amatory, currently on room air and accompanied today by his . He has not been seen in the ED urgent care for respiratory illnesses last office visit. He has not required any antibiotics or prednisone for any breathing problems. He took the Singulair for rater than 3 weeks, did not see that improved his breathing quality, therefore stopped taking it a few days ago. He also took the Flonase for approximately 3 weeks, did not see a difference and therefore stopped taking it. He is compliant with Dulera 2 puffs twice daily and Spiriva daily. He reports rinsing his mouth out after each use and denies any medication side effects such as sore throat or thrush. Currently, he is experiencing an exacerbation that it is of increase in shortness of breath, chest tightness, wheezing and a cough that is productive of thick yellow sputum. His symptoms began approximately 5 days ago when he was exposed to noxious fumes from a steaming soiled cooking pot in his home. He has tried extra strength Mucinex to thin the secretions, has had a slight improvement in the thickness of the secretions. He has not tried any additional acjt-jjo-ikmuoqh medications. He also admits that yesterday he had chest pain, for which he used his nitrogen sublingual tablets and the pain was relieved. Currently he denies any hemoptysis. He has not experienced any palpitations. He denies any lower extremity edema. He denies any fever, chills or body aches. He denies any sinus pressure, sinus drainage or headaches. See complete review of systems. 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 Accompanied by: Allergies isosorbide [From Imdur] Allergy (Verified 10/16/17 10:37) Other Medications Aspirin [Aspirin, Baby] 81 mg PO DAILY@0800 12/29/14 [History Confirmed 10/16/17] Atorvastatin Calcium [Lipitor] 20 mg PO QHS 12/29/14 [History Confirmed 10/16/17] Lisinopril 1 mg PO DAILY 12/29/14 [History Confirmed 10/16/17] Lorazepam [Ativan] 1 mg PO TID PRN PRN 12/29/14 [History Confirmed 10/16/17] Metoprolol Tartrate 25 mg PO 4X/DAY 12/29/14 [History Confirmed 10/16/17] Nitroglycerin [Nitrostat] 0.4 mg SL PRN PRN 12/29/14 [History Confirmed 10/16/17] Albuterol Inhaler [Ventolin Hfa] 2 puff INHALATION Q4H PRN PRN 04/19/16 [History Confirmed 10/16/17] Clopidogrel Bisulfate [Plavix] 75 mg PO DAILY 04/19/16 [History Confirmed 10/16/17] albuterol sulfate 2.5 mg/3 mL (0.083 %) solution for nebulization 2.5 mg INHALATION Q4H PRN ml 04/03/17 [History Confirmed 10/16/17] pseudoephedrine-guaifenesin ER 120 mg-1,200 mg tab,extend release 12hr 1 tab PO Q12H 04/03/17 [History Confirmed 10/16/17] tiotropium bromide 2.5 mcg/actuation mist for inhalation 2 puff INHALATION Q24H #1 device 04/08/17 [Rx Confirmed 10/16/17] mometasone-formoterol HFA 200 mcg-5 mcg/actuation aerosol inhaler 2 puff INHALATION BID #13 g 07/28/17 [Rx Confirmed 10/16/17] guaifenesin ER 1,200 mg tablet, extended release 12 hr 1,200 mg PO Q12H #60 tab 08/12/17 [Rx Confirmed 10/16/17] fluticasone 50 mcg/actuation nasal spray,suspension 2 spray INTRANASAL DAILY #16 g 08/27/17 [Rx Confirmed 10/16/17] montelukast 10 mg tablet 10 mg PO QPM #30 tab 09/11/17 [Rx Confirmed 10/16/17] amoxicillin 875 mg-potassium clavulanate 125 mg tablet 1 tab PO BID #20 tab 10/16/17 [Rx Confirmed 10/16/17] prednisone 10 mg tablet 10 mg PO QDAY #30 tab 10/16/17 [Rx Confirmed 10/16/17] PFSH Medical History SOB (shortness of breath) (Acute) Cough (Chronic) 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 (Chronic) Chronic hypoxemic respiratory failure (Chronic) Bronchiectasis (Acute) Benign essential HTN (Chronic) HLD (hyperlipidemia) (Chronic) CAD (coronary artery disease) (Chronic) Hypotension (Acute) Prostate CA (Chronic) COPD (chronic obstructive pulmonary disease) (Acute) Influenza B (Acute) Social History Smoking Status: Former smoker how long ago did patient quit smokin, second hand exposure: Yes alcohol intake: never substance use type: does not use Review of Systems Const CONSTITUTIONAL: Positive chills and fatigue; negative anorexia, body ache, daytime sleepiness, fever(s), night sweats, oral thrush, stops breathing during sleep, weight loss, sleeping in chair, weight loss, weight gain, frequent colds, seasonal allergies, other, headache(s) or orthopnea EETM Ear Nose Throat Mouth: Positive hearing normal and post nasal drip; negative hard of hearing, hoarseness, dry mouth in morning, change in vision, itchy eyes, eye pain, swallowing Difficulty, ear pain, nose bleed, headache(s), mouth pain, nasal congestion, nasal discharge, sinus pain, sinus pressure, sore throat or other Cardio Cardiovascular: Positive chest pain; negative chest pain at rest, chest pain with activity, irregular heart rhythm, edema, shortness of breath when lying down, palpitations, murmur or other Resp Respiratory: Positive as per HPI, shortness of breath shortness of breath: Positive with activity and worsening, wheezing, cough cough: Positive productive color: Positive brown, chest tightness and inhalers; negative pain with cough, chest congestion, pain on inspiration, increase use of rescue inhalers, snoring, apnea or other Gastro Gastrointestional: Negative bloody stools, change in appetite, difficulty swallowing, reflux, hematemesis, melena stool, loose stool, constipation or other Genitourinary: Negative blood in urine, nocturia, pain with urination or other Musc Musculoskeletal: Negative body pain, back pain, neck pain or other Skin/Breast Skin/Breast: Negative dry skin, itching, rash, unusual bruising, breast lump or other Neuro Neurological: Negative restless legs, confusion, weakness or other Psych Psychocological: Negative abnormal sleep pattern, anxiety, thoughts of hurting self/others, hopelessness or other Lymph Lymphatic: Negative easy bleeding, easy bruising, swollen lymph nodes or other Exam Const Constitutional: Positive conversant, cooperative, in no acute respiratory distress, healthy appearing, well developed, well nourished and good hygiene Head Head: Positive normocephalic and atraumatic; negative cyanosis of lips/distal nose Eyes Eye: Positive clear conjunctiva; negative nystagmus or scleral abnormality Ears Ear: Positive hearing normal and external ears normal; negative hard of hearing Nose Nose: Positive external nose normal and no nasal discharge; negative epistaxis Mouth Mouth: Positive post nasal drip, oral mucosae normal, no lesions and dentures; negative malodorous breath or oral thrush present Neck Neck: Positive normal visual inspection, full ROM, trachea midline and thick neck; negative lymphadenopathy, JVD or tender Chest Wall Chest: Positive normal inspection of the chest and symmetric chest movement; negative increased A/P diameter Resp lung sounds: Positive diminished, wheeze present on forced exhalation and normal respiratory effort; negative rhonchi, rales or dullness to percussion Cardio Cardiac: Positive regular rate, regular rhythm, S1 normal and S2 normal; negative murmur GI GI: Positive normal to inspection; negative distended Genitourinary: Positive deferred Musc Musculoskeletal: Positive steady gait and ROM normal; negative kyphosis or scoliosis Skin Pulmonary Skin Exam: Positive intact; negative rash, lesion, ulcers, erythema or scaly Pulses Pulse: Yes pulses normal x4 extremities Extremities Extremities: Yes capillary refill normal, No cyanosis, No edema Neuro Neurologic: Yes conversant, Yes no focal neuro deficits, Yes normal concentration, Yes understands questions, Yes cooperative, Yes normal coordination, Yes normal cognition Lymph Lymphatic: No lymphadenopathy, No tenderness, No cervical adenopathy, No axillary adenopathy Psych Appearance: Positive grossly normal, eye contact and well kempt Mental Status: Positive mental status grossly normal Mood: Positive congruent mood Affect: Positive normal affect Coding Level of Care Code Off vis,est,level 3 Diagnoses Stage 3 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 J44.9 10/16/17 1316 <Electronically signed by Karol WATSONC> Date Karol Pierce Signature: Date (if applicable) CC: Mei Perez MD PULMONARY VISIT REPORT Observed: 09/11/2017 Status: F Source: [place] 7:16 PM [facility] [address] [place] [address] OFFICE VISIT Date of Service: 09/11/17 MR#: [id number] Acct: [id number] Name: HAL CORLEY Rep #: [id number] : 1940 Provider: Karol Hurtado Age/Sex: 77/M Location: [facility] [place].[facility] Status: Signed Assessment AND Plan 1. Cough R05 Plan Starting on Singulair. Follow-up in 1 month to determine response to new medication. Encouraged to contact the office with any new or worsening symptoms, or medication side effects. 2. Stage 3 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 J44.9 Plan Improved. No additional testing at this time. Follow-up in 1 month. Plan Detail Other Medications New: Follow Up 1 Month ([facility]) HPI 2 W FU: Chief Complaint: Cough HPI Comments Details: This patient presents to the today after recently being treated for exacerbation of his COPD. He completed recommended medications. He reports that his symptoms have almost completely resolved. He continues to have a cough with a small amount of white sputum daily. This has been his chronic cough for the past 5 months. His dyspnea on exertion has returned to baseline. He denies any wheezing or chest tightness. He reports that the Flonase might be helping he is not sure. He has not used his nebulizer in the past 3-4 weeks. He is compliant with Dulera twice daily, Spiriva daily, and Mucinex daily. He denies any fever, chills or body aches. He has not needed use his rescue inhaler as frequently, has only needed it approximately couple times per week. Intake Vital Signs09/11/17 Height 5 ft 11 in 09/11/17 Weight: 204 lb Intake Visit Reasons: 2 W FU [employer] Required: No Accompanied by: Is patient in pain?: No Allergies isosorbide [From Imdur] Allergy (Verified 09/11/17 14:06) Other Medications Aspirin [Aspirin, Baby] 81 mg PO DAILY@0800 12/29/14 [History Confirmed 09/11/17] Atorvastatin Calcium [Lipitor] 20 mg PO QHS 12/29/14 [History Confirmed 09/11/17] Lisinopril 1 mg PO DAILY 12/29/14 [History Confirmed 09/11/17] Lorazepam [Ativan] 1 mg PO TID PRN PRN 12/29/14 [History Confirmed 09/11/17] Metoprolol Tartrate 25 mg PO 4X/DAY 12/29/14 [History Confirmed 09/11/17] Nitroglycerin [Nitrostat] 0.4 mg SL PRN PRN 12/29/14 [History Confirmed 09/11/17] Albuterol Inhaler [Ventolin Hfa] 2 puff INHALATION Q4H PRN PRN 04/19/16 [History Confirmed 09/11/17] Clopidogrel Bisulfate [Plavix] 75 mg PO DAILY 04/19/16 [History Confirmed 09/11/17] albuterol sulfate 2.5 mg/3 mL (0.083 %) solution for nebulization 2.5 mg INHALATION Q4H PRN ml 04/03/17 [History Confirmed 09/11/17] pseudoephedrine-guaifenesin ER 120 mg-1,200 mg tab,extend release 12hr 1 tab PO Q12H 04/03/17 [History Confirmed 09/11/17] tiotropium bromide 2.5 mcg/actuation mist for inhalation 2 puff INHALATION Q24H #1 device 04/08/17 [Rx Confirmed 09/11/17] mometasone-formoterol HFA 200 mcg-5 mcg/actuation aerosol inhaler 2 puff INHALATION BID #13 g 07/28/17 [Rx Confirmed 09/11/17] guaifenesin ER 1,200 mg tablet, extended release 12 hr 1,200 mg PO Q12H #60 tab 08/12/17 [Rx Confirmed 09/11/17] fluticasone 50 mcg/actuation nasal spray,suspension 2 spray INTRANASAL DAILY #16 g 08/27/17 [Rx Confirmed 09/11/17] montelukast 10 mg tablet 10 mg PO QPM #30 tab 09/11/17 [Rx Confirmed 09/11/17] [facility] Medical History SOB (shortness of breath) (Acute) Cough (Chronic) 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 (Chronic) Chronic hypoxemic respiratory failure (Chronic) Bronchiectasis (Acute) Benign essential HTN (Chronic) HLD (hyperlipidemia) (Chronic) CAD (coronary artery disease) (Chronic) Hypotension (Acute) Prostate CA (Chronic) COPD (chronic obstructive pulmonary disease) (Acute) Influenza B (Acute) Social History Smoking Status: Former smoker how long ago did patient quit smokin, second hand exposure: Yes alcohol intake: never substance use type: does not use Review of Systems Const CONSTITUTIONAL: Negative anorexia, body ache, chills, daytime sleepiness, fever(s), night sweats, oral thrush, stops breathing during sleep, weight loss, sleeping in chair, fatigue, weight loss, weight gain, frequent colds, seasonal allergies, other, headache(s) or orthopnea EETM Ear Nose Throat Mouth: Positive hearing normal and sore throat; negative hard of hearing, hoarseness, dry mouth in morning, change in vision, itchy eyes, eye pain, swallowing Difficulty, ear pain, nose bleed, headache(s), mouth pain, nasal congestion, nasal discharge, post nasal drip, sinus pain, sinus pressure or other Cardio Cardiovascular: Negative chest pain, chest pain at rest, chest pain with activity, irregular heart rhythm, edema, shortness of breath when lying down, palpitations, murmur or other Resp Respiratory: Positive as per HPI, shortness of breath shortness of breath: Positive with activity, cough cough: Positive productive color: Positive white, chest tightness and inhalers; negative pain with cough, wheezing, chest congestion, pain on inspiration, increase use of rescue inhalers, snoring, apnea or other Gastro Gastrointestional: Negative bloody stools, change in appetite, difficulty swallowing, reflux, hematemesis, melena stool, loose stool, constipation or other Genitourinary: Negative blood in urine, nocturia, pain with urination or other Musc Musculoskeletal: Negative body pain, back pain, neck pain or other Skin/Breast Skin/Breast: Negative dry skin, itching, rash, unusual bruising, breast lump or other Neuro Neurological: Negative restless legs, confusion, weakness or other Psych Psychocological: Negative abnormal sleep pattern, anxiety, thoughts of hurting self/others, hopelessness or other Lymph Lymphatic: Negative easy bleeding, easy bruising, swollen lymph nodes or other Exam Const Constitutional: Positive conversant, cooperative, in no acute respiratory distress, healthy appearing, well developed, well nourished and good hygiene Head Head: Positive normocephalic and atraumatic; negative cyanosis of lips/distal nose Eyes Eye: Positive clear conjunctiva and nystagmus; negative scleral abnormality Ears Ear: Positive hearing normal and external ears normal; negative hard of hearing Nose Nose: Positive external nose normal and no nasal discharge; negative epistaxis Mouth Mouth: Positive oral mucosae normal, no lesions and dentures; negative post nasal drip, malodorous breath, oral thrush present or edentulous Mallampati Score: I: Mallampati Score Neck Neck: Positive normal visual inspection, full ROM and trachea midline; negative lymphadenopathy, JVD or tender Chest Wall Chest: Positive normal inspection of the chest and symmetric chest movement; negative increased A/P diameter Resp lung sounds: Positive clear to auscultation, good air exchange, normal expiratory time and normal respiratory effort; negative diminished, wheezes, rhonchi, rales, dullness to percussion or wheeze present on forced exhalation Cardio Cardiac: Positive regular rate, regular rhythm, S1 normal and S2 normal; negative murmur GI GI: Positive normal to inspection and normal bowel sounds; negative distended Genitourinary: Positive deferred Musc Musculoskeletal: Positive steady gait and ROM normal; negative kyphosis or scoliosis Skin Pulmonary Skin Exam: Positive intact; negative rash, lesion, ulcers, erythema, scaly or dermal atrophy Pulses Pulse: Yes pulses normal x4 extremities Extremities Extremities: Yes capillary refill normal, No clubbing, No cyanosis, No edema, No stasis dermatitis Neuro Neurologic: Yes conversant, Yes no focal neuro deficits, Yes normal concentration, Yes understands questions, Yes cooperative, Yes normal cognition, Yes normal coordination Lymph Lymphatic: No lymphadenopathy, No tenderness, No cervical adenopathy, No axillary adenopathy Psych Appearance: Positive grossly normal, eye contact and well kempt Mental Status: Positive mental status grossly normal Mood: Positive congruent mood Affect: Positive normal affect Coding Level of Care Code Off vis,est,level 3 Diagnoses Cough R05 Stage 3 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 J44.9 09/11/176 <Electronically signed by Karol Hurtado NP-C> Date Karol Hurtado NP-C Cosigner Signature: Date (if applicable) CC: Mei Perez MD CNOV Observed: 09/01/2017 Status: COMPLETED Source: [place] 10:40 AM [facility] Office Visit (FAMPWS) HAL CORLEY ([id number]) 1940 M Date Time Provider Department 09/01/17 10:40 AM [facility] During your visit today, we recorded the following information about you: Pulse Respiration Blood pressure Weight 64/minute 16/minute 118/68 91.6 kg Mei Perez MD 09/01/2017 11:02 AM Signed Chief Complaint Patient presents with: F/U 3 Month HPI Hal Corley is a 77 year old male who presents here today for 3 month follow up. COPD: improving, tries to avoid extreme heat and cold temps. He is currently following with Ai Bustillo at [facility]. He states he is currently on prednisone for flare. He is taking Spiriva, proventil nebulizing solutions, albuterol inhaler, and Dulera. He states that the Symbicort was changed to Dulera and he feels the Dulera works better. HTN: is taking lisinopril 5 mg daily. Lopressor 50 mg, half tablet QID and Plavix [address]. Dye, Cardio. Lipid: is taking Lipitor 20 mg daily. Does try to watch diet. He does try to stay active and do as much household activities as he is able. Anxiety: states it is about the same. He stopped taking Celexa 20 mg even though it helped, he felt this was causing him to have double vision, the vision improved when he stopped the celexa. He is taking Ativan 1 mg BID to TID. Is not interested in trying any other medications in place of Celexa at this time. Prostate cancer: still follows with Dr. Catalan, Urology at [facility]. PSA is being monitored. Sugars were elevated at recent lab draw. He admits that he was eating some cookies, but was also on Prednisone at that time as well. Past medical history, appointments, medications, allergies reviewed. Previous Medical History PAST MEDICAL HISTORY Diagnosis Date - Atypical chest pain - CAD (coronary artery disease) s/p CABG 1999, PCI w/ stents - COPD (chronic obstructive pulmonary disease) (HCC) - Hyperlipidemia Hyperlipidemia - Hypertension - Prostate cancer (HCC) Dx Dec 2014, s/p radiation, on hormonal therapy Previous Surgical History PAST SURGICAL HISTORY Procedure Laterality Date - PAST SURGICAL HISTORY OF TURP - PAST SURGICAL HISTORY OF 1999 triple bypass Family History FAMILY HISTORY Problem Relation Age of Onset - Cancer Mother breast, bone - Cancer Sister breast - Emphysema Sister Smoker - Diabetes Father - Heart Father - Diabetes Brother - Heart Brother - Other [OTHER] Brother Parkinsons - Diabetes Paternal Grandmother - Heart Paternal Grandmother Patient Allergies ALLERGIES Allergen Reactions - Imdur [Isosorbide M* Hives Black out and dizziness Current Medications Current Outpatient Prescriptions on File Prior to Visit: atorvastatin (LIPITOR) 20 mg tablet TAKE ONE TABLET BY MOUTH ONCE A DAY. LORazepam (ATIVAN) 1 mg tablet Take 1 tablet by mouth three times daily for 90 days. tiotropium (SPIRIVA WITH HANDIHALER) 18 mcg inhalation capsule Inhale 1 capsule as instructed once daily. Use with handihaler. citalopram (CELEXA) 20 mg tablet Take 1 tablet by mouth once daily. clopidogrel (PLAVIX) 75 mg tablet TAKE ONE TABLET BY MOUTH ONCE A DAY. metoprolol tartrate, short acting, (LOPRESSOR) 50 mg tablet Take 0.5 tablets by mouth four times daily. albuterol (PROVENTIL) 2.5 mg/0.5 mL nebulizar solution PEDIATRIC ASTHMA Inhale 2.5-5 mg as instructed as directed. lisinopril (PRINIVIL) 5 mg tablet Take 1 tablet by mouth once daily. albuterol HFA (PROAIR HFA) 90 mcg/actuation inhaler Inhale 2 Puffs as instructed every 4 hours as needed for Wheezing/Shortness of Breath. NITROSTAT 0.4 mg SL tablet DISSOLVE 1 TABLET UNDER THE TONGUE NEEDED. EVERY 5 MINUTES X3 FOR C HEST PAIN ASPIRIN 81 MG TAB Take one (1) tablet daily . budesonide-formoterol (SYMBICORT) 160-4.5 mcg/actuation inhaler Inhale 2 Puffs as instructed twice daily. No current facility-administered medications on file prior to visit. Social History Social History Marital status: Spouse name: Years of education: Number of children: Social History Main Topics Smoking status: Former Smoker Packs/day: 2.00 Years: 40.00 Types: Cigarettes Start date: 11/08/1962 Quit date: 05/13/2002 Smokeless tobacco: Never Used Alcohol use: Yes 1.8 oz/week Cans of beer: 3 per week Comment: light beer Drug use: No EXAM: BP 118/68 Pulse 64 Resp 16 Wt 91.6 kg (202 lb) BMI 28.17 kg/m? General Appearance: Well appearing, alert, in no acute distress, well-hydrated, well nourished., Obese. Lungs: Lungs clear to auscultation. No wheezing, rhonchi, rales. Heart: RRR without murmur, gallop, or rubs. No ectopy. Health Maintenance List DTAP,TDAP,TD(1 - Tdap) due on 1961 ZOSTER VACCINE (SHINGRIX)(1 of 2) due on 1992 INFLUENZA(1) due on 10/31/2017 COLORECTAL CANCER SCREENING,SEE MODIFIER due on 06/02/2018 DIABETES SCREEN due on 08/28/2020 LIPID SCREEN due on 10/20/2021 ADULT PREVNAR-13 Completed PNEUMOVAX AGE 65 AND OVER WITH 5YR LOOKBACK Completed Data reviewed Appointment on 08/28/2017 Component Date Value - Glucose 08/28/2017 139* - BUN 08/28/2017 20 - Creatinine 08/28/2017 0.94 - Sodium 08/28/2017 139 - Potassium 08/28/2017 4.7 - Chloride 08/28/2017 102 - CO2 08/28/2017 22 - Anion Gap 08/28/2017 15 - Calcium 08/28/2017 8.8 - eGFR- 08/28/2017 >60 - eGFR-All Other Races 08/28/2017 >60 ASSESSMENT/PLAN: 1. Hyperlipidemia, mixed - ICD9: 272.2, ICD10: E78.2 (primary diagnosis) - to be determined upon return of lab results - Continue current medication. - Encouraged following a low fat, low cholesterol diet. - Discussed the benefits of regular aerobic exercise and weight loss. 2. Chronic obstructive pulmonary disease, unspecified COPD type (HCC) - ICD9: 496, ICD10: J44.9 Continue current medications. Continue with Ai Bustillo 3. Essential hypertension - ICD9: 401.9, ICD10: I10 - good control - Continue current medication(s) - Recommended regular aerobic exercise. - Recommend home blood pressure monitoring, to bring results in on next visit - Goal of BP <140/[address] Dye, Cardio 4. Anxiety - ICD9: 300.00, ICD10: F41.9 Stop Celexa Continue with Ativan BID to TID 5. Elevated glucose - ICD9: 790.29, ICD10: R73.09 Check A1c at next appt. Follow up in 3 months with fasting labs prior. Mei Perez MD The documentation for this note was completed by Malu Tavares Ma acting as scribe for Mei Perez MD. September 01, 2017 10:28 AM. Referring Provider: MEI PEREZ [[id number]] Allergies As of Date: 09/01/2017 Noted Allergy Reaction IMDUR (ISOSORBIDE MONONITRATE) 03/14/2015 4 - Hives Comments: Black out and dizziness Date Reviewed: 09/01/2017 Reviewed by: Malu Tavares Ma - Fully Assessed Reason for Visit: F/U 3 Month [443] Primary Visit Diagnosis:Chronic obstructive pulmonary disease, unspecified COPD type (HCC) [J44.9] Other Visit Diagnoses:Hyperlipidemia, mixed [E78.2] Essential hypertension [I10] Anxiety [F41.9] Elevated glucose [R73.09] Order(s):LIPID PANEL BASIC [SQLIPB] Order #: [id number] FUTURE COMP METABOLIC PANEL [SQCMP] Order #: [id number] FUTURE HGB A1C [WAOTT3J] Order #: [id number] FUTURE Prescriptions as of 09/01/2017 Sig: DULERA 200 MCG-5 MCG/ACTUATIO* Take 2 Puffs by mouth twice d* ATORVASTATIN 20 MG TABLET TAKE ONE TABLET BY MOUTH ONCE* LORAZEPAM 1 MG TABLET Take 1 tablet by mouth three * TIOTROPIUM BROMIDE 18 MCG CAP* Inhale 1 capsule as instructe* CLOPIDOGREL 75 MG TABLET TAKE ONE TABLET BY MOUTH ONCE* METOPROLOL TARTRATE 50 MG TAB* Take 0.5 tablets by mouth fou* ALBUTEROL SULFATE 2.5 MG/0.5 * Inhale 2.5-5 mg as instructed* LISINOPRIL 5 MG TABLET Take 1 tablet by mouth once d* ALBUTEROL SULFATE HFA 90 MCG/* Inhale 2 Puffs as instructed * NITROSTAT 0.4 MG SUBLINGUAL T* DISSOLVE 1 TABLET UNDER THE T* ASPIRIN 81 MG TABLET Take one (1) tablet daily . Problem List As Of Date 09/01/2017 Noted Resolved Hyperlipidemia, Mixed [E78.2] INVALID FOR* Prostate cancer (HCC) [C61] INVALID FOR* ASCVD (arteriosclerotic cardiovascular disease)*INVALID FOR* Hypertrophy of prostate with urinary obstructio*INVALID FOR* Chronic obstructive pulmonary disease (HCC) [J4*INVALID FOR* Essential hypertension [I10] INVALID FOR* Anxiety [F41.9] INVALID FOR* Medications Discontinued During This Encounter budesonide-formoterol (SYMBICORT) 16* 09/01/2017 Class: Historical Med Route: INHALATION Sig: Inhale 2 Puffs as instructed twice daily. Disc: Reason for discontinue is not on file. citalopram (CELEXA) 20 mg tablet 90 t* 3 04/09/2017 09/01/2017 Route: ORAL Sig: Take 1 tablet by mouth once daily. Disc: Reason for discontinue is not on file. Disposition: Return in about 3 months (around 12/02/2017). Follow-up and Disposition History Recorded Encounter Status:Closed by MEI PEREZ MD on 09/01/17 PROGRESS Observed: 09/01/2017 Status: COMPLETED Source: [place] 10:28 AM [place] [facility] [facility] HNO ID: [id number] Author: Mei Perez Service: (none) Author Type: Physician Type: Progress Notes Filed: 09/01/2017 11:02 AM Note Text: Chief Complaint Patient presents with: F/U 3 Month HPI Hal Corley is a 77 year old male who presents here today for 3 month follow up. COPD: improving, tries to avoid extreme heat and cold temps. He is currently following with Dr. Calvillo P[place]iago at [facility]. He states he is currently on prednisone for flare. He is taking Spiriva, proventil nebulizing solutions, albuterol inhaler, and Dulera. He states that the Symbicort was changed to Dulera and he feels the Dulera works better. HTN: is taking lisinopril 5 mg daily. Lopressor 50 mg, half tablet QID and Plavix [address] Dye, Cardio. Lipid: is taking Lipitor 20 mg daily. Does try to watch diet. He does try to stay active and do as much household activities as he is able. Anxiety: states it is about the same. He stopped taking Celexa 20 mg even though it helped, he felt this was causing him to have double vision, the vision improved when he stopped the celexa. He is taking Ativan 1 mg BID to TID. Is not interested in trying any other medications in place of Celexa at this time. Prostate cancer: still follows with Dr. Catalan, Urology at [facility]. PSA is being monitored. Sugars were elevated at recent lab draw. He admits that he was eating some cookies, but was also on Prednisone at that time as well. Past medical history, appointments, medications, allergies reviewed. Previous Medical History PAST MEDICAL HISTORY Diagnosis Date - Atypical chest pain - CAD (coronary artery disease) s/p CABG 1999, PCI w/ stents - COPD (chronic obstructive pulmonary disease) (HCC) - Hyperlipidemia Hyperlipidemia - Hypertension - Prostate cancer (HCC) Dx Dec 2014, s/p radiation, on hormonal therapy Previous Surgical History PAST SURGICAL HISTORY Procedure Laterality Date - PAST SURGICAL HISTORY OF TURP - PAST SURGICAL HISTORY OF 1999 triple bypass Family History FAMILY HISTORY Problem Relation Age of Onset - Cancer Mother breast, bone - Cancer Sister breast - Emphysema Sister Smoker - Diabetes Father - Heart Father - Diabetes Brother - Heart Brother - Other [OTHER] Brother Parkinsons - Diabetes Paternal Grandmother - Heart Paternal Grandmother Patient Allergies ALLERGIES Allergen Reactions - Imdur [Isosorbide M* Hives Black out and dizziness Current Medications Current Outpatient Prescriptions on File Prior to Visit: atorvastatin (LIPITOR) 20 mg tablet TAKE ONE TABLET BY MOUTH ONCE A DAY. LORazepam (ATIVAN) 1 mg tablet Take 1 tablet by mouth three times daily for 90 days. tiotropium (SPIRIVA WITH HANDIHALER) 18 mcg inhalation capsule Inhale 1 capsule as instructed once daily. Use with handihaler. citalopram (CELEXA) 20 mg tablet Take 1 tablet by mouth once daily. clopidogrel (PLAVIX) 75 mg tablet TAKE ONE TABLET BY MOUTH ONCE A DAY. metoprolol tartrate, short acting, (LOPRESSOR) 50 mg tablet Take 0.5 tablets by mouth four times daily. albuterol (PROVENTIL) 2.5 mg/0.5 mL nebulizar solution PEDIATRIC ASTHMA Inhale 2.5-5 mg as instructed as directed. lisinopril (PRINIVIL) 5 mg tablet Take 1 tablet by mouth once daily. albuterol HFA (PROAIR HFA) 90 mcg/actuation inhaler Inhale 2 Puffs as instructed every 4 hours as needed for Wheezing/Shortness of Breath. NITROSTAT 0.4 mg SL tablet DISSOLVE 1 TABLET UNDER THE TONGUE NEEDED. EVERY 5 MINUTES X3 FOR C HEST PAIN ASPIRIN 81 MG TAB Take one (1) tablet daily . budesonide-formoterol (SYMBICORT) 160-4.5 mcg/actuation inhaler Inhale 2 Puffs as instructed twice daily. No current facility-administered medications on file prior to visit. Social History Social History Marital status: Spouse name: Years of education: Number of children: Social History Main Topics Smoking status: Former Smoker Packs/day: 2.00 Years: 40.00 Types: Cigarettes Start date: 11/08/1962 Quit date: 05/13/2002 Smokeless tobacco: Never Used Alcohol use: Yes 1.8 oz/week Cans of beer: 3 per week Comment: light beer Drug use: No EXAM: BP 118/68 Pulse 64 Resp 16 Wt 91.6 kg (202 lb) BMI 28.17 kg/m? General Appearance: Well appearing, alert, in no acute distress, well-hydrated, well nourished., Obese. Lungs: Lungs clear to auscultation. No wheezing, rhonchi, rales. Heart: RRR without murmur, gallop, or rubs. No ectopy. Health Maintenance List DTAP,TDAP,TD(1 - Tdap) due on 1961 ZOSTER VACCINE (SHINGRIX)(1 of 2) due on 1992 INFLUENZA(1) due on 10/31/2017 COLORECTAL CANCER SCREENING,SEE MODIFIER due on 06/02/2018 DIABETES SCREEN due on 08/28/2020 LIPID SCREEN due on 10/20/2021 ADULT PREVNAR-13 Completed PNEUMOVAX AGE 65 AND OVER WITH 5YR LOOKBACK Completed Data reviewed Appointment on 08/28/2017 Component Date Value - Glucose 08/28/2017 139* - BUN 08/28/2017 20 - Creatinine 08/28/2017 0.94 - Sodium 08/28/2017 139 - Potassium 08/28/2017 4.7 - Chloride 08/28/2017 102 - CO2 08/28/2017 22 - Anion Gap 08/28/2017 15 - Calcium 08/28/2017 8.8 - eGFR- 08/28/2017 >60 - eGFR-All Other Races 08/28/2017 >60 ASSESSMENT/PLAN: 1. Hyperlipidemia, mixed - ICD9: 272.2, ICD10: E78.2 (primary diagnosis) - to be determined upon return of lab results - Continue current medication. - Encouraged following a low fat, low cholesterol diet. - Discussed the benefits of regular aerobic exercise and weight loss. 2. Chronic obstructive pulmonary disease, unspecified COPD type (HCC) - ICD9: 496, ICD10: J44.9 Continue current medications. Continue with Dr. Calvillo Pultiaog 3. Essential hypertension - ICD9: 401.9, ICD10: I10 - good control - Continue current medication(s) - Recommended regular aerobic exercise. - Recommend home blood pressure monitoring, to bring results in on next visit - Goal of BP <140/[address] Dye, Cardio 4. Anxiety - ICD9: 300.00, ICD10: F41.9 Stop Celexa Continue with Ativan BID to TID 5. Elevated glucose - ICD9: 790.29, ICD10: R73.09 Check A1c at next appt. Follow up in 3 months with fasting labs prior. Mei Perez MD The documentation for this note was completed by Malu Tavares Ma acting as scribe for Mei Perez MD. September 01, 2017 10:28 AM. BASIC METABOLIC PANL Collected: 08/28/2017 Status: F Source: [place] 10:40 AM [facility] REPOS[facility] TYPE CODE TESTS RESULT OUT OF REFERENCE UNITS RANGE LAB GLU 74-99 mg/dL High Glucose 139 Result Comment: The [place] [employer] (ADA) provides guidance for cutoff values for fasting glucose and random glucose. The ADA defines fasting as no caloric intake for at least 8 hours. Fas ting plasma glucose results between 100 to 125 mg/dL indicate increased risk for diabetes (prediabetes). Fasting plasma glucose results greater than or equal to 126 mg/dL meet the criteria for diagnosis of diabetes. In the absence of unequivocal hyperglycemia, results should be confirmed by repeat testing. In a patient with classic symptoms of hyperglycemia or hyperglycemic crisis, random plasma glucose results greater than or equal to 200 mg/dL meet the criteria for diagnosis of diabetes. Reference: Standards of Medical Care in Diabetes 2016, [place] [employer]. Diabetes Care. 2016.39(Suppl 1). LAB BUN 9-24 mg/dL BUN 20 LAB CRET 0.73-1.22 mg/dL Creatinine 0.94 LAB NA 136-144 mmol/L Sodium 139 LAB K 3.7-5.1 mmol/L Potassium 4.7 LAB CL 97-105 mmol/L Chloride 102 LAB CO2 22-30 mmol/L CO2 22 LAB AGAP 9-18 mmol/L Anion Gap 15 LAB CA 8.5-10.2 mg/dL Calcium, Total 8.8 LAB GFRAA eGFR- Amer. >60 LAB GFRNAA . eGFR-All Other Races >60 Result Comment: eGFR (Estimated GFR) Units of measure: mL/min/1.73 meters squared eGFR is derived from the reexpressed MDRD Study equation using the following parameters: serum creatinine, age, gender and race. The creatinine assay has been calibrated to be traceable to IDMS. An eGFR <60 mL/min/1.73m2 for >3 months is consistent with chronic kidney disease. Refer to KDOQI guidelines for clinical interpretation. In patients with unstable renal function, e.g. those with acute kidney injury, the eGFR may not accurately reflect actual GFR. Performed By: #### BMP #### [facility] [address] [place], [place] [address] PULMONARY VISIT REPORT Observed: 08/27/2017 Status: F Source: [place] 5:08 PM [facility] [address] [place] [address] OFFICE VISIT Date of Service: 08/27/17 MR#: [id number] Acct: [id number] Name: HAL CORLEY Rep #: [id number] : 1940 Provider: Karol Hurtado Age/Sex: 77/M Location: [facility] Status: Signed Assessment AND Plan 1. Stage 3 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 J44.9 Plan Deteriorated. Given the patient's incomplete resolution of symptoms after a course of prednisone, he will be started on a Z-Gigi and another prednisone taper dose to begin today. He is to follow-up in the office in 2 weeks, but is encouraged to contact the office or go to urgent care if symptoms worsen before that time. 2. Thrush, oral B37.0 Plan Resolved. Patient has finished course of nystatin swish and swallow. He is reminded and encouraged to rinse his mouth thoroughly after use of his Dulera. 3. PND (post-nasal drip) R09.82 Plan New. Add Flonase 2 sprays in each nostril once a day. Discussed possible allergic component to patient's COPD and possibility of antihistamine use in the future for improved control of symptoms. Plan Detail Other Medications New: Follow Up 2 Weeks (CSM) HPI 2 W FU: Chief Complaint: TOLENTINO and productive cough HPI Comments Details: Patient is finished with prednisone. Cough is still there with white sputum and SOB remains with activity. He stated that he has rattling in his chest. No fever. Likes Dulera better than the Symbicort glad the insurance changed it. Nasal drainage remains. Mr. Corley is a 77-year-old pleasant male who presents in the office for 2 week follow-up of a COPD exacerbation that was treated with a taper dose of prednisone. The patient presents the office reporting overall improvement of his symptoms; however, he does note that he continues to have a productive cough with white sputum mostly in the morning, feels a rattle in his chest which clears to cough, and he continues to have some moderate dyspnea with exertion. He does note that he has some postnasal drip, sinus congestion, and fatigue. He denies any fevers, chills, chest tightness, wheezing, headaches, or systemic symptoms. He was recently changed to a regimen of Dulera and Spiriva, noting that he feels this is better than his prior regimen. He has been using his rescue inhaler approximately 2-3 times a week. Intake Vital Signs08/27/17 Height 5 ft 11 in 08/27/17 Weight: 204 lb Intake Visit Reasons: 2 W FU Accompanied by: Self Allergies isosorbide [From Imdur] Allergy (Verified 08/27/17 13:26) Other Medications Aspirin [Aspirin, Baby] 81 mg PO DAILY@0800 12/29/14 [History Confirmed 08/27/17] Atorvastatin Calcium [Lipitor] 20 mg PO QHS 12/29/14 [History Confirmed 08/27/17] Lisinopril 1 mg PO DAILY 12/29/14 [History Confirmed 08/27/17] Lorazepam [Ativan] 1 mg PO TID PRN PRN 12/29/14 [History Confirmed 08/27/17] Metoprolol Tartrate 25 mg PO 4X/DAY 12/29/14 [History Confirmed 08/27/17] Nitroglycerin [Nitrostat] 0.4 mg SL PRN PRN 12/29/14 [History Confirmed 08/27/17] Albuterol Inhaler [Ventolin Hfa] 2 puff INHALATION Q4H PRN PRN 04/19/16 [History Confirmed 08/27/17] Clopidogrel Bisulfate [Plavix] 75 mg PO DAILY 04/19/16 [History Confirmed 08/27/17] albuterol sulfate 2.5 mg/3 mL (0.083 %) solution for nebulization 2.5 mg INHALATION Q4H PRN ml 04/03/17 [History Confirmed 08/27/17] pseudoephedrine-guaifenesin ER 120 mg-1,200 mg tab,extend release 12hr 1 tab PO Q12H 04/03/17 [History Confirmed 08/27/17] tiotropium bromide 2.5 mcg/actuation mist for inhalation 2 puff INHALATION Q24H #1 device 04/08/17 [Rx Confirmed 08/27/17] mometasone-formoterol HFA 200 mcg-5 mcg/actuation aerosol inhaler 2 puff INHALATION BID #13 g 07/28/17 [Rx Confirmed 08/27/17] guaifenesin ER 1,200 mg tablet, extended release 12 hr 1,200 mg PO Q12H #60 tab 08/12/17 [Rx Confirmed 08/27/17] azithromycin 250 mg tablet 250 mg PO QDAY #6 tab 08/27/17 [Rx Confirmed 08/27/17] fluticasone 50 mcg/actuation nasal spray,suspension 2 spray INTRANASAL DAILY #16 g 08/27/17 [Rx Confirmed 08/27/17] prednisone 10 mg tablet 10 mg PO QDAY #30 tab 08/27/17 [Rx Confirmed 08/27/17] PFSH Medical History SOB (shortness of breath) (Acute) Cough (Chronic) 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 (Chronic) Chronic hypoxemic respiratory failure (Chronic) Bronchiectasis (Acute) Benign essential HTN (Chronic) HLD (hyperlipidemia) (Chronic) CAD (coronary artery disease) (Chronic) Hypotension (Acute) Prostate CA (Chronic) COPD (chronic obstructive pulmonary disease) (Acute) Influenza B (Acute) Social History Smoking Status: Former smoker how long ago did patient quit smokin, second hand exposure: Yes alcohol intake: never substance use type: does not use Review of Systems Const CONSTITUTIONAL: Negative anorexia, body ache, chills, daytime sleepiness, fever(s), night sweats, oral thrush, stops breathing during sleep, weight loss, sleeping in chair, fatigue, weight loss, weight gain, frequent colds, seasonal allergies, other, headache(s) or orthopnea EETM Ear Nose Throat Mouth: Positive hearing normal, nasal congestion, nasal discharge and post nasal drip; negative hard of hearing, hoarseness, dry mouth in morning, change in vision, itchy eyes, eye pain, swallowing Difficulty, ear pain, nose bleed, headache(s), mouth pain, sinus pain, sinus pressure, sore throat or other Cardio Cardiovascular: Negative chest pain, chest pain at rest, chest pain with activity, irregular heart rhythm, edema, shortness of breath when lying down, palpitations, murmur or other Resp Respiratory: Positive as per HPI, shortness of breath shortness of breath: Positive with activity, wheezing, chest congestion and cough cough: Positive productive color: Positive thick and white; negative pain with cough, chest tightness, pain on inspiration, inhalers, increase use of rescue inhalers, snoring, apnea or other Gastro Gastrointestional: Negative bloody stools, change in appetite, difficulty swallowing, reflux, hematemesis, melena stool, loose stool, constipation or other Genitourinary: Negative blood in urine, nocturia, pain with urination or other Musc Musculoskeletal: Negative body pain, back pain, neck pain or other Skin/Breast Skin/Breast: Negative dry skin, itching, rash, unusual bruising, breast lump or other Neuro Neurological: Negative restless legs, confusion, weakness or other Psych Psychocological: Negative abnormal sleep pattern, anxiety, thoughts of hurting self/others, hopelessness or other Lymph Lymphatic: Negative easy bleeding, easy bruising, swollen lymph nodes or other Exam Const Constitutional: Positive conversant, cooperative, in no acute respiratory distress, healthy appearing, well developed, well nourished and good hygiene Head Head: Positive normocephalic and atraumatic; negative cyanosis of lips/distal nose Eyes Eye: Positive clear conjunctiva and nystagmus; negative scleral abnormality Ears Ear: Positive hearing normal and external ears normal; negative hard of hearing Nose Nose: Positive external nose normal and clear nasal discharge; negative epistaxis Mouth Mouth: Positive post nasal drip, oral mucosae normal and no lesions; negative oral thrush present Mallampati Score: II: Mallampati Score Neck Neck: Positive normal visual inspection, full ROM and trachea midline; negative lymphadenopathy, JVD or tender Chest Wall Chest: Positive normal inspection of the chest and symmetric chest movement; negative increased A/P diameter Resp lung sounds: Positive clear to auscultation, diminished diminished: Positive bialteral (R>L), normal respiratory effort and prolonged expiratory time; negative wheezes, rhonchi, rales, dullness to percussion or wheeze present on forced exhalation Cardio Cardiac: Positive regular rate, regular rhythm, S1 normal and S2 normal; negative murmur GI GI: Positive normal to inspection and normal bowel sounds; negative distended Genitourinary: Positive deferred Musc Musculoskeletal: Positive steady gait and ROM normal; negative kyphosis or scoliosis Skin Pulmonary Skin Exam: Positive intact; negative rash Pulses Pulse: Yes radial pulses present Extremities Extremities: Yes capillary refill normal Neuro Neurologic: Yes conversant, Yes no focal neuro deficits, Yes cooperative, Yes normal cognition, Yes normal coordination, Yes normal concentration, Yes understands questions Lymph Lymphatic: No lymphadenopathy Psych Appearance: Positive grossly normal, eye contact and well kempt Mental Status: Positive mental status grossly normal Mood: Positive congruent mood Affect: Positive normal affect Coding Level of Care Code Off vis,est,level 4 Diagnoses Stage 3 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 J44.9 Thrush, oral B37.0 PND (post-nasal drip) R09.82 08/27/17 1708 <Electronically signed by Karol BARRETO> Date Karol BARRETO Cosigner Signature: Date (if applicable) CC: Mei Perez MD PSA,TOTAL- DIAGNOSTIC Collected: 08/26/2017 Status: F Source: [place] 12:00 AM [facility] TYPE CODE TESTS RESULT OUT OF RANGE REFERENCE UNITS LAB L501.9940 0.0-4.0 ng/mL PSA, Normal DIAGNOSTIC 0.01 Result Comment: This test was performed using the TPSA assay method for the [employer] chemistry system. Values obtained with different assay methods cannot be used interchangably. When changing PSA assays in the course of monitoring a patient, additional sequential testing should be carried out to confirm baseline values. Performed By: #### L501.9940 #### [facility] [address], [place], [address] [facility] Observed: 08/18/2017 Status: COMPLETED Source: [place] 12:00 AM [facility] Patient Outreach ([facility]) HAL CORLEY ([id number]) 1940 M Date Time Provider Department 08/18/17 MEI PEREZ [facility] During your visit today, we recorded the following information about you: Allergies As of Date: 08/18/2017 Noted Allergy Reaction IMDUR (ISOSORBIDE MONONITRATE) 03/14/2015 4 - Hives Comments: Black out and dizziness Date Reviewed: 06/26/2017 Reviewed by: Leeann Ferguson - Fully Assessed Visit Diagnosis:Medication management [Z79.899] Order(s):BASIC METABOLIC PNL [SQBMP] Order #: [id number] FUTURE Prescriptions as of 08/18/2017 Sig: ATORVASTATIN 20 MG TABLET TAKE ONE TABLET BY MOUTH ONCE* X LORAZEPAM 1 MG TABLET Take 1 tablet by mouth three * TIOTROPIUM BROMIDE 18 MCG CAP* Inhale 1 capsule as instructe* X CITALOPRAM 20 MG TABLET Take 1 tablet by mouth once d* CLOPIDOGREL 75 MG TABLET TAKE ONE TABLET BY MOUTH ONCE* X METOPROLOL TARTRATE 50 MG TAB* Take 0.5 tablets by mouth fou* ALBUTEROL SULFATE 2.5 MG/0.5 * Inhale 2.5-5 mg as instructed* X BUDESONIDE-FORMOTEROL HFA 160* Inhale 2 Puffs as instructed * X LISINOPRIL 5 MG TABLET Take 1 tablet by mouth once d* ALBUTEROL SULFATE HFA 90 MCG/* Inhale 2 Puffs as instructed * X NITROSTAT 0.4 MG SUBLINGUAL T* DISSOLVE 1 TABLET UNDER THE T* ASPIRIN 81 MG TABLET Take one (1) tablet daily . Problem List As Of Date 08/18/2017 Noted Resolved Hyperlipidemia, Mixed [E78.2] INVALID FOR* Prostate cancer (HCC) [C61] INVALID FOR* ASCVD (arteriosclerotic cardiovascular disease)*INVALID FOR* Hypertrophy of prostate with urinary obstructio*INVALID FOR* Chronic obstructive pulmonary disease (HCC) [J4*INVALID FOR* Essential hypertension [I10] INVALID FOR* Anxiety [F41.9] INVALID FOR* Encounter Status:Closed by HELGA TRUJILLO on 12/11/17 PULMONARY VISIT REPORT Observed: 08/14/2017 Status: F Source: [place] 4:33 PM [facility] [address] [place] [address] OFFICE VISIT Date of Service: 08/12/17 MR#: [id number] Acct: [id number] Name: HAL CORLEY Rep #: [id number] : 1940 Provider: Karol Hurtado Age/Sex: 77/M Location: [facility] Status: Signed Assessment AND Plan 1. Bronchiectasis with acute exacerbation J47.1 Status Acute Plan Deteriorated. Treating for exacerbation of his bronchiectasis with a prednisone taper. No additional testing at this time. Patient has been encouraged to contact the office if he does not see symptom improvement by Thursday. 2. Thrush, oral B37.0 Status Acute Plan New. Nystatin ordered, patient given instructions on use. No additional testing at this time. Keep previously scheduled routine follow-up. He has been encouraged to contact the office if he develops any new or worsening symptoms or does not stop therapy. Plan Detail Other Medications New: nystatin swish and swallow 5 cc three times per day for 10 da5 mL Mucous Membrane TID ys HPI Cough: Chief Complaint: Cough HPI Comments Details: This patient presents to the office today with complaints of cough that is productive of white sputum. He is ambulatory, currently on room air and accompanied today by his . Patient reports that the cough seems to be worse in the evenings and at times been ongoing for the past several weeks. He has been using his albuterol nebulizer because he is reporting increase in chest tightness and wheezing. He is also noticed that he is producing more sputum than normal. He remains compliant with Dulera 2 puffs twice daily. He does rinse his mouth out after each use. He denies any medication side effects such as sore throat or thrush. He is also on Spiriva once daily. In addition to his albuterol nebulizer he is also using his pro-air approximately 2-3 times per week. He is compliant with nocturnal oxygen wearing 2 L/min at night. He denies any fever, chills or body aches, also denies any sinus pressure or headache. He does report a mild sore throat which she believes is attributed to the frequent cough. He has used a small amount of Mucinex, I believe approximately 400 mg. He did not see much relief with that dosing. He did not try any other [id number] medications. See complete review of systems. Intake Vital Signs08/12/17 Height 5 ft 11 in 08/12/17 Weight: 206 lb Intake Visit Reasons: Cough DME Vendor: [employer] Accompanied by: Allergies isosorbide [From [employer]] Allergy (Verified 06/17/17 14:02) Other Medications Aspirin [Aspirin, Baby] 81 mg PO DAILY@0800 12/29/14 [History Confirmed 06/17/17] Atorvastatin Calcium [Lipitor] 20 mg PO QHS 12/29/14 [History Confirmed 06/17/17] Lisinopril 1 mg PO DAILY 12/29/14 [History Confirmed 06/17/17] Lorazepam [Ativan] 1 mg PO TID PRN PRN 12/29/14 [History Confirmed 06/17/17] Metoprolol Tartrate 25 mg PO 4X/DAY 12/29/14 [History Confirmed 06/17/17] Nitroglycerin [Nitrostat] 0.4 mg SL PRN PRN 12/29/14 [History Confirmed 06/17/17] Albuterol Inhaler [Ventolin Hfa] 2 puff INHALATION Q4H PRN PRN 04/19/16 [History Confirmed 06/17/17] Clopidogrel Bisulfate [Plavix] 75 mg PO DAILY 04/19/16 [History Confirmed 06/17/17] albuterol sulfate 2.5 mg/3 mL (0.083 %) solution for nebulization 2.5 mg INHALATION Q4H PRN ml 04/03/17 [History Confirmed 06/17/17] pseudoephedrine-guaifenesin ER 120 mg-1,200 mg tab,extend release 12hr 1 tab PO Q12H 04/03/17 [History Confirmed 06/17/17] tiotropium bromide 2.5 mcg/actuation mist for inhalation 2 puff INHALATION Q24H #1 device 04/08/17 [Rx Confirmed 06/17/17] budesonide-formoterol HFA 160 mcg-4.5 mcg/actuation aerosol inhaler 2 puff INHALATION DAILY #10.2 g 05/28/17 [Rx Confirmed 06/17/17] mometasone-formoterol HFA 200 mcg-5 mcg/actuation aerosol inhaler 2 puff INHALATION BID #13 g 07/28/17 [Rx] guaifenesin ER 1,200 mg tablet, extended release 12 hr 1,200 mg PO Q12H #60 tab 08/12/17 [Rx Confirmed 08/12/17] nystatin 100,000 unit/mL oral suspension 5 ml MUCOUS MEMBRANE TID #250 ml 08/12/17 [Rx Confirmed 08/12/17] prednisone 10 mg tablet 10 mg PO QDAY #30 tab 08/12/17 [Rx Confirmed 08/12/17] PFSH Medical History SOB (shortness of breath) (Acute) Cough (Chronic) 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 (Chronic) Chronic hypoxemic respiratory failure (Chronic) Bronchiectasis (Chronic) Benign essential HTN (Chronic) HLD (hyperlipidemia) (Chronic) CAD (coronary artery disease) (Chronic) Hypotension (Acute) Prostate CA (Chronic) COPD (chronic obstructive pulmonary disease) (Acute) Influenza B (Acute) Social History Smoking Status: Former smoker how long ago did patient quit smokin, second hand exposure: Yes alcohol intake: never substance use type: does not use Review of Systems Const CONSTITUTIONAL: Negative anorexia, body ache, chills, daytime sleepiness, fever(s), night sweats, oral thrush, stops breathing during sleep, weight loss, sleeping in chair, fatigue, weight loss, weight gain, frequent colds, seasonal allergies, other, headache(s) or orthopnea EETM Ear Nose Throat Mouth: Positive hearing normal; negative hard of hearing, hoarseness, dry mouth in morning, change in vision, itchy eyes, eye pain, swallowing Difficulty, ear pain, nose bleed, headache(s), mouth pain, nasal congestion, nasal discharge, post nasal drip, sinus pain, sinus pressure, sore throat or other Cardio Cardiovascular: Negative chest pain, chest pain at rest, chest pain with activity, irregular heart rhythm, edema, shortness of breath when lying down, palpitations, murmur or other Resp Respiratory: Positive as per HPI, shortness of breath shortness of breath: Positive with activity and worsening and cough cough: Positive productive color: Positive white and increase in cough frequency; negative pain with cough, wheezing, chest congestion, chest tightness, pain on inspiration, inhalers, increase use of rescue inhalers, snoring, apnea or other Gastro Gastrointestional: Negative bloody stools, change in appetite, difficulty swallowing, reflux, hematemesis, melena stool, loose stool, constipation or other Genitourinary: Negative blood in urine, nocturia, pain with urination or other Musc Musculoskeletal: Negative body pain, back pain, neck pain or other Skin/Breast Skin/Breast: Negative dry skin, itching, rash, unusual bruising, breast lump or other Neuro Neurological: Negative restless legs, confusion, weakness or other Psych Psychocological: Negative abnormal sleep pattern, anxiety, thoughts of hurting self/others, hopelessness or other Lymph Lymphatic: Negative easy bleeding, easy bruising, swollen lymph nodes or other Exam Const Constitutional: Positive conversant, cooperative, in no acute respiratory distress, healthy appearing, well developed, well nourished and good hygiene Head Head: Positive normocephalic and atraumatic; negative cyanosis of lips/distal nose, frontal sinus tenderness or maxillary sinus tenderness Eyes Eye: Positive clear conjunctiva and nystagmus; negative scleral abnormality Ears Ear: Positive hearing normal and external ears normal; negative hard of hearing Nose Nose: Positive external nose normal and no nasal discharge; negative epistaxis Mouth Mouth: Positive oral mucosae normal, no lesions, oral thrush present, dentures and posterior oropharynx is adequate; negative post nasal drip or malodorous breath Mallampati Score: II: Mallampati Score Neck Neck: Positive normal visual inspection, full ROM and trachea midline; negative lymphadenopathy, JVD or tender Chest Wall Chest: Positive normal inspection of the chest and symmetric chest movement; negative increased A/P diameter Resp lung sounds: Positive clear to auscultation, good air exchange, normal expiratory time and normal respiratory effort; negative diminished, wheezes, rhonchi, rales, dullness to percussion or wheeze present on forced exhalation Cardio Cardiac: Positive regular rate, regular rhythm, S1 normal and S2 normal; negative murmur GI GI: Positive normal to inspection and normal bowel sounds; negative distended Genitourinary: Positive deferred Musc Musculoskeletal: Positive steady gait and ROM normal; negative kyphosis or scoliosis Skin Pulmonary Skin Exam: Positive intact; negative rash, lesion, ulcers, erythema, scaly or dermal atrophy Pulses Pulse: Yes pulses normal x4 extremities Extremities Extremities: Yes capillary refill normal, No clubbing, No cyanosis, No edema, No stasis dermatitis Neuro Neurologic: Yes conversant, Yes no focal neuro deficits, Yes cooperative, Yes normal cognition, Yes normal coordination, Yes normal concentration, Yes understands questions Lymph Lymphatic: No lymphadenopathy, No tenderness, No cervical adenopathy, No axillary adenopathy Psych Appearance: Positive grossly normal, eye contact and well kempt Mental Status: Positive mental status grossly normal Mood: Positive congruent mood Affect: Positive normal affect Coding Level of Care Code Off vis,est,level 3 Diagnoses Bronchiectasis with acute exacerbation J47.1 Bronchiectasis type: with acute exacerbation Thrush, oral B37.0 08/14/17 1633 <Electronically signed by Karol BARRETO> Date Karol WATSONC Cosigner Signature: Date (if applicable) CC: Mei Perez MD CBC W/DIFF, AUTOMATED Collected: 08/12/2017 Status: F Source: [place] 3:48 PM [facility] Order Comment: PT INSURANCE WOULDNT COVER THE ICD 9 CODE. PT REFUSED TO HAVE THE ALLERGEN, MINI RAST TEST DONE TYPE CODE TESTS RESULT OUT OF RANGE REFERENCE UNITS LAB L100.1000 4.4-11.0 K/mm3 Normal WBC 5.6 LAB L100.1200 4.6-6.2 M/mm3 Low RBC 4.50 LAB L100.1300 13.0-16.5 g/dl Normal HGB 13.9 LAB L100.1400 40-54 % Normal HCT 42.5 LAB L100.1500 80-94 fL High MCV 94.4 LAB L100.1600 27.0-32.0 pg Normal MCH 30.9 LAB L100.1700 32-36 g/gl Normal MCHC 32.7 LAB L100.1810 11.6-14.6 % Normal RDW CV 13.7 LAB L100.1820 35.1-43.9 fl High RDW SD 44.7 LAB L100.1900 150-450 K/mm3 Normal PLT 207 LAB L100.2000 6.2-12.0 fl Normal MPV 8.9 LAB L100.2100 47-70 % High NEUT% 74.4 LAB L100.2200 19-41 % Low LY% 14.2 LAB L100.2300 0-10 % Normal MONO% 9.0 LAB L100.2400 0-5 % Normal EO% 1.8 LAB L100.2500 0-1 % Normal BASO% 0.4 LAB L100.2550 0.0-0.9 % Normal IM GRAN % 0.200 Result Comment: IG% - Immature Granulocytes (promyelocytes, myelocytes and metamyelocytes) > 1% indicates that a LEFT SHIFT is Present. LAB L100.2620 2.0-7.7 X10 3/uL Normal Absolute Neut 4.2 LAB L100.2720 0.83-4.51 X10 3/ul Low Absolute Lymph 0.80 Performed By: #### L100.0100 #### [facility] [address] [place], [address] IMMUNOGLOBULIN E Collected: 08/12/2017 Status: F Source: [place] 3:48 PM [facility] Order Comment: PT INSURANCE WOULDNT COVER THE ICD 9 CODE. PT REFUSED TO HAVE THE ALLERGEN, MINI RAST TEST DONE TYPE CODE TESTS RESULT OUT OF RANGE REFERENCE UNITS LAB L3200.1600 0-100 IU/mL Normal IMMUNO E 8 Result Comment: Performed at: - [address] [id number] [employer] Pusher: Hal Bill MD, Phone: [phone] Performed By: #### L3200.1600 #### [facility] (refer to report for specific site) refer to report for address and phone number PROGRESS Observed: 06/26/2017 Status: COMPLETED Source: [place] 2:37 PM [facility] OTHER CAMP[facility] REPOSITORY HNO ID: [id number] Author: Carlos Dye Service: (none) Author Type: Physician Type: Progress Notes Filed: 06/26/2017 4:56 PM Note Text: PERTINENT CARDIAC HISTORY ASHD - PCI RCA 1998, CABGx3 1998, PCI RCA, LAD 2002, PCI LM 2012 Chronic atypical CP HTN HL TOLENTINO ADHERENCE TO GUIDELINES NÉSTOR-I or ARB for HF with prior LVEF<40 (NQF 0081) - N/A ASA or Plavix for ASHD (NQF 0067) - met Beta bernard for ASHD with prior PR or prior LVEF<40 (NQF 0070) - N/A Beta bernard for HF with prior LVEF<40 (NQF 0083) - N/A NÉSTOR-I or ARB for ASHD with DM or prior LVEF<40 (NQF 0066) - met Statin therapy for ASHD or FHL or DM - met BMI documented and plan if >25 (NQF 0421) - lifestyle recommendation form Tobacco use screening and referral (NQF 0028) - lifestyle recommendation form Recommendation for whole food, plant based diet - lifestyle recommendation form CLINICAL IMPRESSION/PLAN: Hal Corley is doing well. His coronary disease is stable. Blood pressure is well-controlled. I've advised him to continue his current medication and to increase activity. I will see him in 8 months or as needed. Written and verbal health teaching given to patient, patient verbalizes understanding and agrees with treatment plan. DIAGNOSIS FOR VISIT: ASHD HISTORY OF PRESENT ILLNESS Hal Corley returns for follow-up of his ischemic heart disease. He reports stable exercise tolerance. He has taken no nitroglycerin. He denies orthopnea. He's had no edema, syncope, palpitations, TIAs, amaurosis or claudication. ALLERGIES: ALLERGIES Allergen Reactions - Imdur [Isosorbide M* Hives Black out and dizziness CURRENT OUTPATIENT MEDICATIONS: [START ON 06/30/2017] LORazepam (ATIVAN) 1 mg tablet Take 1 tablet by mouth three times daily for 90 days. tiotropium (SPIRIVA WITH HANDIHALER) 18 mcg inhalation capsule Inhale 1 capsule as instructed once daily. Use with handihaler. citalopram (CELEXA) 20 mg tablet Take 1 tablet by mouth once daily. clopidogrel (PLAVIX) 75 mg tablet TAKE ONE TABLET BY MOUTH ONCE A DAY. metoprolol tartrate, short acting, (LOPRESSOR) 50 mg tablet Take 0.5 tablets by mouth four times daily. albuterol (PROVENTIL) 2.5 mg/0.5 mL nebulizar solution PEDIATRIC ASTHMA Inhale 2.5-5 mg as instructed as directed. budesonide-formoterol (SYMBICORT) 160-4.5 mcg/actuation inhaler Inhale 2 Puffs as instructed twice daily. lisinopril (PRINIVIL) 5 mg tablet Take 1 tablet by mouth once daily. atorvastatin (LIPITOR) 20 mg tablet Take 1 tablet by mouth once daily. albuterol HFA (PROAIR HFA) 90 mcg/actuation inhaler Inhale 2 Puffs as instructed every 4 hours as needed for Wheezing/Shortness of Breath. NITROSTAT 0.4 mg SL tablet DISSOLVE 1 TABLET UNDER THE TONGUE NEEDED. EVERY 5 MINUTES X3 FOR C HEST PAIN ASPIRIN 81 MG TAB Take one (1) tablet daily . PHYSICAL EXAMINATION: VITAL SIGNS: BP 118/74 Pulse 51 Ht 5' 11 (1.80m) Wt 206 lb 14.4 oz (93.8kg) BMI 28.87 kg/(m2). Chest: Clear to percussion and auscultation. Trachea is midline. Air entry is equal. Cardiac: Regular rhythm. S1 and S2 are normal. PMI is nondisplaced. There is a soft systolic ejection murmur. Carotids are brisk without bruits. JVP is less than 10 cm. Abdomen: Soft and nontender. There are no pulsatile masses or bruits. No liver enlargement. Bowel sounds are active. Extremities: No edema. Pulses are intact and symmetrical. EKG shows sinus bradycardia with sinus arrhythmia. There is no significant change. Recent labs were reviewed. Renal function is normal. LDL was 81. Electronically Signed: Carlos Dye MD June 26, 2017 2:37 PM CC: Mei Perez MD CNOV Observed: 06/26/2017 Status: COMPLETED Source: [place] 2:30 PM [facility] OTHER [facility] REPOSITORY Office Visit (AGCARDWST) HAL CORLEY ([id number]) 1940 M Date Time Provider Department 06/26/17 2:30 PM CARLOS DYE AGCVIETWSAyala During your visit today, we recorded the following information about you: Pulse Blood pressure Weight Height 51/minute 118/74 93.8 kg 1.803 m Carlos Dye MD 06/26/2017 4:56 PM Signed PERTINENT CARDIAC HISTORY ASHD - PCI RCA 1998, CABGx3 1998, PCI RCA, LAD 2002, PCI LM 2012 Chronic atypical CP HTN HL TOLENTINO ADHERENCE TO GUIDELINES NÉSTOR-I or ARB for HF with prior LVEFANDlt;40 (NQF 0081) - N/A ASA or Plavix for ASHD (NQF 0067) - met Beta bernard for ASHD with prior PR or prior LVEFANDlt;40 (NQF 0070) - N/A Beta bernard for HF with prior LVEFANDlt;40 (NQF 0083) - N/A NÉSTOR-I or ARB for ASHD with DM or prior LVEFANDlt;40 (NQF 0066) - met Statin therapy for ASHD or FHL or DM - met BMI documented and plan if ANDgt;25 (NQF 0421) - lifestyle recommendation form Tobacco use screening and referral (NQF 0028) - lifestyle recommendation form Recommendation for whole food, plant based diet - lifestyle recommendation form CLINICAL IMPRESSION/PLAN: Hal Corley is doing well. His coronary disease is stable. Blood pressure is well-controlled. I've advised him to continue his current medication and to increase activity. I will see him in 8 months or as needed. Written and verbal health teaching given to patient, patient verbalizes understanding and agrees with treatment plan. DIAGNOSIS FOR VISIT: ASHD HISTORY OF PRESENT ILLNESS Hal Corley returns for follow-up of his ischemic heart disease. He reports stable exercise tolerance. He has taken no nitroglycerin. He denies orthopnea. He's had no edema, syncope, palpitations, TIAs, amaurosis or claudication. ALLERGIES: ALLERGIES Allergen Reactions - Imdur [Isosorbide M* Hives Black out and dizziness CURRENT OUTPATIENT MEDICATIONS: [START ON 06/30/2017] LORazepam (ATIVAN) 1 mg tablet Take 1 tablet by mouth three times daily for 90 days. tiotropium (SPIRIVA WITH HANDIHALER) 18 mcg inhalation capsule Inhale 1 capsule as instructed once daily. Use with handihaler. citalopram (CELEXA) 20 mg tablet Take 1 tablet by mouth once daily. clopidogrel (PLAVIX) 75 mg tablet TAKE ONE TABLET BY MOUTH ONCE A DAY. metoprolol tartrate, short acting, (LOPRESSOR) 50 mg tablet Take 0.5 tablets by mouth four times daily. albuterol (PROVENTIL) 2.5 mg/0.5 mL nebulizar solution PEDIATRIC ASTHMA Inhale 2.5-5 mg as instructed as directed. budesonide-formoterol (SYMBICORT) 160-4.5 mcg/actuation inhaler Inhale 2 Puffs as instructed twice daily. lisinopril (PRINIVIL) 5 mg tablet Take 1 tablet by mouth once daily. atorvastatin (LIPITOR) 20 mg tablet Take 1 tablet by mouth once daily. albuterol HFA (PROAIR HFA) 90 mcg/actuation inhaler Inhale 2 Puffs as instructed every 4 hours as needed for Wheezing/Shortness of Breath. NITROSTAT 0.4 mg SL tablet DISSOLVE 1 TABLET UNDER THE TONGUE NEEDED. EVERY 5 MINUTES X3 FOR C HEST PAIN ASPIRIN 81 MG TAB Take one (1) tablet daily . PHYSICAL EXAMINATION: VITAL SIGNS: BP 118/74 Pulse 51 Ht 5' 11ANDquot; (1.80m) Wt 206 lb 14.4 oz (93.8kg) BMI 28.87 kg/(m2). Chest: Clear to percussion and auscultation. Trachea is midline. Air entry is equal. Cardiac: Regular rhythm. S1 and S2 are normal. PMI is nondisplaced. There is a soft systolic ejection murmur. Carotids are brisk without bruits. JVP is less than 10 cm. Abdomen: Soft and nontender. There are no pulsatile masses or bruits. No liver enlargement. Bowel sounds are active. Extremities: No edema. Pulses are intact and symmetrical. EKG shows sinus bradycardia with sinus arrhythmia. There is no significant change. Recent labs were reviewed. Renal function is normal. LDL was 81. Electronically Signed: Carlos Dye MD June 26, 2017 2:37 PM CC: MD Carlos Tse MD 06/26/2017 2:37 PM Signed LIFESTYLE CHANGE A healthy lifestyle is the most important component of your overall treatment plan. Please give serious thought to the following areas and commit to making alf changes. EAT A WHOLE FOOD, PLANT BASED DIET The nutrition your body gets is more important than the medicine you take. What matters most is the overall way you eat. We encourage you to minimize the use of animal products (which include dairy and all meats except fatty fish) and use whole, unprocessed plant foods to provide your protein, vitamins and other nutrients. We have a lot of information to share with you on this topic. We also hold Shared Medical Appointments, where you can come visit with Dr. Dye in the company of other patients and spend over an hour talking about the challenges of changing the way you eat. This is not a ANDquot;dietANDquot;. It is a way of life that you will keep with you. EXERCISE REGULARLY It is not important to spend hours in the gym, lifting weights and perspiring heavily. A total of 2-3 hours per week of aerobic (causing you to be moderately short of breath) exercise is sufficient to improve your health. Talk to us before you begin a new exercise program, if you have heart disease or experience shortness of breath or chest pain. REDUCE STRESS Chronic emotional and physical stress leads to disease. Ways of reducing stress include meditation, visualization, prayer, yoga and other forms of relaxation therapy. Consistency is the wadsworth. Find a technique that works for you and do it every day. CULTIVATE RELATIONSHIPS Loneliness and isolation have a major negative impact on health. Seek out others who can love, care for and nurture you. Avoid hurtful relationships. MAINTAIN IDEAL BODY WEIGHT The best way to do this is to do all the things above. Our bodies naturally find the right weight if we keep moving and feed ourselves the right food. If your BMI is greater than 25, we strongly recommend a referral to a weight management program. Please speak to us or your family physician about available programs. AVOID NICOTINE IN ALL FORMS This includes all tobacco products, whether chewed, smoked, vaped, or rubbed on the skin. Smoking cessation programs, which can make use of tobacco substitutes, medications to suppress cravings and behavior management, are available. Please contact your family physician about programs in your area. Referring Provider: CARLOS DYE [[id number]] Allergies As of Date: 06/26/2017 Noted Allergy Reaction IMDUR (ISOSORBIDE MONONITRATE) 03/14/2015 4 - Hives Comments: Black out and dizziness Date Reviewed: 06/26/2017 Reviewed by: Leeann Ferguson - Fully Assessed Reason for Visit: Established Patient [175] Cmt: follow up ASHD Primary Visit Diagnosis:ASHD (arteriosclerotic heart disease) [I25.10] Other Visit Diagnosis:Hypertension, essential [I10] Prescriptions as of 06/26/2017 Sig: LORAZEPAM 1 MG TABLET Take 1 tablet by mouth three * TIOTROPIUM BROMIDE 18 MCG CAP* Inhale 1 capsule as instructe* CITALOPRAM 20 MG TABLET Take 1 tablet by mouth once d* CLOPIDOGREL 75 MG TABLET TAKE ONE TABLET BY MOUTH ONCE* METOPROLOL TARTRATE 50 MG TAB* Take 0.5 tablets by mouth fou* ALBUTEROL SULFATE 2.5 MG/0.5 * Inhale 2.5-5 mg as instructed* BUDESONIDE-FORMOTEROL HFA 160* Inhale 2 Puffs as instructed * LISINOPRIL 5 MG TABLET Take 1 tablet by mouth once d* ATORVASTATIN 20 MG TABLET Take 1 tablet by mouth once d* ALBUTEROL SULFATE HFA 90 MCG/* Inhale 2 Puffs as instructed * NITROSTAT 0.4 MG SUBLINGUAL T* DISSOLVE 1 TABLET UNDER THE T* ASPIRIN 81 MG TABLET Take one (1) tablet daily . Problem List As Of Date 06/26/2017 Noted Resolved Hyperlipidemia, Mixed [E78.2] INVALID FOR* Prostate cancer (HCC) [C61] INVALID FOR* ASCVD (arteriosclerotic cardiovascular disease)*INVALID FOR* Hypertrophy of prostate with urinary obstructio*INVALID FOR* Chronic obstructive pulmonary disease (HCC) [J4*INVALID FOR* Essential hypertension [I10] INVALID FOR* Anxiety [F41.9] INVALID FOR* Other instructions from your clinician: LIFESTYLE CHANGE A healthy lifestyle is the most important component of your overall treatment plan. 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 EAT A WHOLE FOOD, PLANT BASED DIET The nutrition your body gets is more important than the medicine you take. What matters most is the overall way you eat. We encourage you to minimize the use of animal products (which include dairy and all meats except fatty fish) and use whole, unprocessed plant foods to provide your protein, vitamins and other nutrients. We have a lot of information to share with you on this topic. We also hold Shared Medical Appointments, where you can come visit with Dr. Dye in the company of other patients and spend over an hour talking about the challenges of changing the way you eat. This is not a diet. It is a way of life that you will keep with you. EXERCISE REGULARLY It is not important to spend hours in the gym, lifting weights and perspiring heavily. A total of 2-3 hours per week of aerobic (causing you to be moderately short of breath) exercise is sufficient to improve your health. Talk to us before you begin a new exercise program, if you have heart disease or experience shortness of breath or chest pain. REDUCE STRESS Chronic emotional and physical stress leads to disease. Ways of reducing stress include meditation, visualization, prayer, yoga and other forms of relaxation therapy. Consistency is the wadsworth. Find a technique that works for you and do it every day. CULTIVATE RELATIONSHIPS Loneliness and isolation have a major negative impact on health. Seek out others who can love, care for and nurture you. Avoid hurtful relationships. MAINTAIN IDEAL BODY WEIGHT The best way to do this is to do all the things above. Our bodies naturally find the right weight if we keep moving and feed ourselves the right food. If your BMI is greater than 25, we strongly recommend a referral to a weight management program. Please speak to us or your family physician about available programs. AVOID NICOTINE IN ALL FORMS This includes all tobacco products, whether chewed, smoked, vaped, or rubbed on the skin. Smoking cessation programs, which can make use of tobacco substitutes, medications to suppress cravings and behavior management, are available. Please contact your family physician about programs in your area. Encounter Status:Closed by CARLOS DYE MD on 06/26/17 PULMONARY VISIT REPORT Observed: 06/17/2017 Status: F Source: [place] 2:56 PM [facility] [address] [place] [address]. [address] [place] [address] OFFICE VISIT Date of Service: 06/17/17 MR#: [id number] Acct: [id number] Name: HAL CORLEY Rep #: [id number] : 1940 Provider: Yong Calvillo D.O. Age/Sex: 76/M Location: [facility] [place].[facility] Status: Signed Assessment AND Plan 1. Stage 3 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 J44.9 Plan The patient is symptomatically well controlled on his triple therapy inhaler regimen, including Symbicort and Spiriva. This will be continued without change. The patient has been instructed to continue to use albuterol on an as-needed basis. He will call this office to inform us of any worsening in his breathing quality or increased reliance on short acting beta agonist. Recommend yearly pulmonary function testing. 2. Tobacco dependence in remission F17.201 Plan Ongoing tobacco cessation strongly encouraged. Plan Detail Follow Up 6 Months (DMB) HPI HPI Comments Details: The patient is a 76-year-old male who presents to the clinic today for a routine scheduled follow-up office visit. The patient's is present at today's office visit. If you recall, the patient has a known history of COPD. He has a prior smoking history of 2-3 packs per day 45 years, having quit completely 14 years ago. The patient does have a history of coronary artery disease for which he is status post three- vessel CABG in January 2000. His last surface echocardiogram showed normal LV size and function with an ejection fraction of 65%. The RVSP was unable to be estimated. CTA chest, dated April 2016, showed no evidence for PE. There was radiographic evidence of emphysematous changes in the lungs along with a stable triangular density in the lateral aspect of the right lower lobe. 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 A repeat 6 minute walk test was completed in March 2017 showed no need for supplemental oxygen with exertion. Repeat pulmonary function tests were also completed at that time and again demonstrated the presence of an irreversible severe large airways obstructive ventilatory defect with asymmetric reduction in diffusing capacity. Today, the patient reports overall stability in his breathing quality. His baseline, chronic dyspnea on exertion remains unchanged. He remains compliant with the use of Symbicort, Spiriva and as needed albuterol. He reports that he only utilizes his rescue inhaler 2 times per week. He denies the presence of a cough, chest tightness or wheezing. He remains active, exercising multiple times weekly at the local community center. He denies fevers, chills or night sweats. His weight has remained stable. He denies chest pain, dizziness or lightheadedness. Intake Vital Signs06/17/17 Body Mass Index (BMI) 28.5 06/17/17 Blood Pressure 108/74 06/17/17 Height 5 ft 11 in 06/17/17 Weight: 204 lb Intake Visit Reasons: 2 M FU Accompanied by: Allergies isosorbide [From Imdur] Allergy (Verified 06/17/17 14:02) Other Medications Aspirin [Aspirin, Baby] 81 mg PO DAILY@0800 12/29/14 [History Confirmed 06/17/17] Atorvastatin Calcium [Lipitor] 20 mg PO QHS 12/29/14 [History Confirmed 06/17/17] Lisinopril 1 mg PO DAILY 12/29/14 [History Confirmed 06/17/17] Lorazepam [Ativan] 1 mg PO TID PRN PRN 12/29/14 [History Confirmed 06/17/17] Metoprolol Tartrate 25 mg PO 4X/DAY 12/29/14 [History Confirmed 06/17/17] Nitroglycerin [Nitrostat] 0.4 mg SL PRN PRN 12/29/14 [History Confirmed 06/17/17] Albuterol Inhaler [Ventolin Hfa] 2 puff INHALATION Q4H PRN PRN 04/19/16 [History Confirmed 06/17/17] Clopidogrel Bisulfate [Plavix] 75 mg PO DAILY 04/19/16 [History Confirmed 06/17/17] albuterol sulfate 2.5 mg/3 mL (0.083 %) solution for nebulization 2.5 mg INHALATION Q4H PRN ml 04/03/17 [History Confirmed 06/17/17] pseudoephedrine-guaifenesin ER 120 mg-1,200 mg tab,extend release 12hr 1 tab PO Q12H 04/03/17 [History Confirmed 06/17/17] tiotropium bromide 2.5 mcg/actuation mist for inhalation 2 puff INHALATION Q24H #1 device 04/08/17 [Rx Confirmed 06/17/17] budesonide-formoterol HFA 160 mcg-4.5 mcg/actuation aerosol inhaler 2 puff INHALATION DAILY #10.2 g 05/28/17 [Rx Confirmed 06/17/17] [facility] Medical History SOB (shortness of breath) (Acute) Cough (Chronic) 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 (Chronic) Chronic hypoxemic respiratory failure (Chronic) Bronchiectasis (Chronic) Benign essential HTN (Chronic) HLD (hyperlipidemia) (Chronic) CAD (coronary artery disease) (Chronic) Hypotension (Acute) Prostate CA (Chronic) COPD (chronic obstructive pulmonary disease) (Acute) Influenza B (Acute) Social History Smoking Status: Former smoker how long ago did patient quit smokin, second hand exposure: Yes alcohol intake: never substance use type: does not use Review of Systems Const CONSTITUTIONAL: Negative anorexia, body ache, chills, daytime sleepiness, fever(s), night sweats, oral thrush, stops breathing during sleep, weight loss, sleeping in chair, fatigue, weight loss, weight gain, frequent colds, seasonal allergies, other, headache(s) or orthopnea EETM Ear Nose Throat Mouth: Positive hearing normal; negative hard of hearing, hoarseness, dry mouth in morning, change in vision, itchy eyes, eye pain, swallowing Difficulty, ear pain, nose bleed, headache(s), mouth pain, nasal congestion, nasal discharge, post nasal drip, sinus pain, sinus pressure, sore throat or other Cardio Cardiovascular: Negative chest pain, chest pain at rest, chest pain with activity, irregular heart rhythm, edema, shortness of breath when lying down, palpitations, murmur or other Resp Respiratory: Positive as per HPI, shortness of breath shortness of breath: Positive with activity and cough (usually at HS ) cough: Positive non-productive; negative pain with cough, wheezing, chest congestion, chest tightness, pain on inspiration, inhalers, increase use of rescue inhalers, snoring, apnea or other Gastro Gastrointestional: Negative bloody stools, change in appetite, difficulty swallowing, reflux, hematemesis, melena stool, loose stool, constipation or other Genitourinary: Negative blood in urine, nocturia, pain with urination or other Musc Musculoskeletal: Negative body pain, back pain, neck pain or other Skin/Breast Skin/Breast: Negative dry skin, itching, rash, unusual bruising, breast lump or other Neuro Neurological: Negative restless legs, confusion, weakness or other Psych Psychocological: Negative abnormal sleep pattern, anxiety, thoughts of hurting self/others, hopelessness or other Lymph Lymphatic: Negative easy bleeding, easy bruising, swollen lymph nodes or other Exam Const Constitutional: Positive conversant, cooperative, in no acute respiratory distress, well developed, well nourished and good hygiene Head Head: Positive normocephalic and atraumatic; negative cyanosis of lips/distal nose Eyes Eye: Positive clear conjunctiva; negative nystagmus or scleral abnormality Ears Ear: Positive hearing normal and external ears normal; negative hard of hearing Nose Nose: Positive external nose normal; negative epistaxis Mouth Mouth: Positive oral mucosae normal, no lesions and posterior oropharynx is adequate; negative post nasal drip or oral thrush present Mallampati Score: I: Mallampati Score Neck Neck: Positive normal visual inspection and trachea midline; negative lymphadenopathy Chest Wall Chest: Positive symmetric chest movement Normal AP diameter. Resp lung sounds: Positive diminished diminished: Positive bialteral and normal expiratory time; negative wheezes, rhonchi or rales Cardio Cardiac: Positive regular rate, regular rhythm, S1 normal and S2 normal; negative murmur, rub or gallop GI GI: Positive normal bowel sounds and normal to inspection Soft without distention Genitourinary: Positive deferred [facility] [place] Musculoskeletal: Positive steady gait Skin Pulmonary Skin Exam: Positive intact; negative rash or lesion Pulses Pulse: Yes Pedal pulses present: Extremities Extremities: No clubbing, No cyanosis, No edema Neuro Neurologic: Yes conversant, Yes no focal neuro deficits, Yes cooperative, Yes understands questions Lymph Lymphatic: No lymphadenopathy Psych Appearance: Positive grossly normal Mental Status: Positive mental status grossly normal Mood: Positive congruent mood Affect: Positive normal affect Coding Level of Care Code Off vis,est,level 3 Diagnoses Stage 3 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 J44.9 Tobacco dependence in remission F17.201 06/17/17 [id number] <Electronically signed by Yong Calvillo DO> Date Yong Calvillo DO Cosigner Signature: Date (if applicable) CC: Mei Perez MD CNOV Observed: 06/02/2017 Status: COMPLETED Source: [place] 10:40 AM [facility] Office Visit (FAMPWS) BARNEYHAL Carr ([id number]) 1940 M Date Time Provider Department 06/02/17 10:40 AM [facility] During your visit today, we recorded the following information about you: Pulse Respiration Blood pressure Weight 64/minute 16/minute 110/68 93.7 kg Mei Perez MD 06/02/2017 11:07 AM Signed Chief Complaint Patient presents with: F/U 6 Month: Anxiety ANDamp; COPD HPI Hal Carr Barney is a 76 year old male who presents here today for a 6 mo f/u. Here today with his , Geno. Anxiety - tells an improvement with use of Celexa 20 mg once daily and Ativan 1 mg 1 tab po TID. Patient notices some improvement with medication. Denies any SE of medications. HTN - Does have a BP machine at home but with so many appointments he doesn't have to check as often at home. States that BP is WNL. Denies any chest pain or dizziness. Admits to sob with COPD. Currently taking Lopressor 50 mg 0.5 tab po QID and Lisinopril 5 mg 1 tab po once daily. COPD - Follows with Dr. Calvillo every 4-6 months. Currently taking Spiriva 18 mcg once daily, Symbicort 160-4.5 mcg 2 puff bid and Proair 2 puffs once daily prn. Uses Nebulizer twice daily. Admits to having Influenza B and since that time doesn't feel his breathing hasn't done as well since that time, but better then previously. Prostate - Currently following with Dr. Hickman and receiving Hormone shots and steroid shots, which he believes he received his last one. Has completed two years worth. His last PSA that was completed was low. Lipids - States that he does try to watch his diet, but with shots it doesn't help. Currently taking Lipitor 20 mg once daily. Cardiology - Will be establishing with Dr. Dye. Past medical history, appointments, medications, allergies reviewed. Previous Medical History PAST MEDICAL HISTORY Diagnosis Date - Atypical chest pain - CAD (coronary artery disease) s/p CABG 1999, PCI w/ stents - COPD (chronic obstructive pulmonary disease) (HCC) - Hyperlipidemia Hyperlipidemia - Hypertension - Prostate cancer (HCC) Dx Dec 2014, s/p radiation, on hormonal therapy Previous Surgical History PAST SURGICAL HISTORY Procedure Laterality Date - PAST SURGICAL HISTORY OF TURP - PAST SURGICAL HISTORY OF 1999 triple bypass Family History FAMILY HISTORY Problem Relation Age of Onset - Cancer Mother breast, bone - Cancer Sister breast - Emphysema Sister Smoker - Diabetes Father - Heart Father - Diabetes Brother - Heart Brother - Other [OTHER] Brother Parkinsons - Diabetes Paternal Grandmother - Heart Paternal Grandmother Patient Allergies ALLERGIES Allergen Reactions - Imdur [Isosorbide M* Hives Black out and dizziness Current Medications Current Outpatient Prescriptions on File Prior to Visit: tiotropium (SPIRIVA WITH HANDIHALER) 18 mcg inhalation capsule Inhale 1 capsule as instructed once daily. Use with handihaler. citalopram (CELEXA) 20 mg tablet Take 1 tablet by mouth once daily. LORazepam (ATIVAN) 1 mg tablet Take 1 tablet by mouth three times daily for 90 days. clopidogrel (PLAVIX) 75 mg tablet TAKE ONE TABLET BY MOUTH ONCE A DAY. metoprolol tartrate, short acting, (LOPRESSOR) 50 mg tablet Take 0.5 tablets by mouth four times daily. albuterol (PROVENTIL) 2.5 mg/0.5 mL nebulizar solution PEDIATRIC ASTHMA Inhale 2.5-5 mg as instructed as directed. budesonide-formoterol (SYMBICORT) 160-4.5 mcg/actuation inhaler Inhale 2 Puffs as instructed twice daily. lisinopril (PRINIVIL) 5 mg tablet Take 1 tablet by mouth once daily. atorvastatin (LIPITOR) 20 mg tablet Take 1 tablet by mouth once daily. albuterol HFA (PROAIR HFA) 90 mcg/actuation inhaler Inhale 2 Puffs as instructed every 4 hours as needed for Wheezing/Shortness of Breath. NITROSTAT 0.4 mg SL tablet DISSOLVE 1 TABLET UNDER THE TONGUE NEEDED. EVERY 5 MINUTES X3 FOR C HEST PAIN ASPIRIN 81 MG TAB Take one (1) tablet daily . No current facility-administered medications on file prior to visit. Social History Social History Marital status: Spouse name: Years of education: Number of children: Social History Main Topics Smoking status: Former Smoker Packs/day: 2.00 Years: 40.00 Types: Cigarettes Start date: 11/08/1962 Quit date: 05/13/2002 Smokeless status: Never Used Alcohol use: Yes 1.8 oz/week 3 Cans of beer per week Comment: light beer Drug use: No EXAM: BP 110/68 (BP Site: Left Arm, BP Position: Sitting, BP Cuff Size: Regular Adult) Pulse 64 Resp 16 Wt 93.7 kg (206 lb 9.6 oz) BMI 28.81 kg/m2 General Appearance: Well appearing, alert, in no acute distress, well-hydrated, well nourished.. Lungs: Lungs clear to auscultation. No wheezing, rhonchi, rales. Heart: RRR without murmur, gallop, or rubs. No ectopy. Health Maintenance List TETANUS due on 1953 COLORECTAL CANCER SCREENING,SEE MODIFIER due on 1992 DIABETES SCREEN due on 10/21/2019 LIPID SCREEN due on 10/20/2021 PROSTATE CANCER SCREENING DISCUSSION Completed ADULT PREVNAR-13 Completed INFLUENZA Completed PNEUMOVAX AGE 65 AND OVER WITH 5YR LOOKBACK Completed Data reviewed External labs ASSESSMENT/PLAN: 1. Anxiety - ICD9: 300.00, ICD10: F41.9 (primary diagnosis) Improved on celexa; continue 20 mg daily for now - LORAZEPAM 1 MG TABLET 2. Essential hypertension - ICD9: 401.9, ICD10: I10 - good control - Continue current medication(s) - Recommended regular aerobic exercise. - Goal of BP ANDlt;140/90 3. Chronic obstructive pulmonary disease, unspecified COPD type (HCC) - ICD9: 496, ICD10: J44.9 Follow with PulDr Rajinder ordoñez 4. Hyperlipidemia, mixed - ICD9: 272.2, ICD10: E78.2 - good control - Continue current medication. 5. ASCVD (arteriosclerotic cardiovascular disease) - ICD9: 429.2, 440.9, ICD10: I25.10 Follow with Cardiology 6. Hypertrophy of prostate with urinary obstruction - ICD9: 600.01, 599.69, ICD10: N40.1, N13.8/Prostate cancer Follow with Urology Follow up in 3 months Mei Perez MD The documentation for this note was completed by Vickie Carrillo Ma acting as scribe for Mei Perez MD. June 02, 2017 10:21 AM. Referring Provider: MEI PEREZ [[id number]] Allergies As of Date: 06/02/2017 Noted Allergy Reaction IMDUR (ISOSORBIDE MONONITRATE) 03/14/2015 4 - Hives Comments: Black out and dizziness Date Reviewed: 06/02/2017 Reviewed by: Vickie Carrillo Ma - Fully Assessed Reason for Visit: F/U 6 Month [444] Cmt: Anxiety AND COPD Primary Visit Diagnosis:Anxiety [F41.9] Other Visit Diagnoses:Essential hypertension [I10] Chronic obstructive pulmonary disease, unspecified COPD type (HCC) [J44.9] Hyperlipidemia, mixed [E78.2] ASCVD (arteriosclerotic cardiovascular disease) [I25.10] Hypertrophy of prostate with urinary obstruction [N40.1, N13.8] Order(s):[START ON 06/30/2017] LORazepam (ATIVAN) 1 mg tabletTake 1 tablet by mouth three times daily for 90 days.Disp: 90 tabletRfl: 2 Prescriptions as of 06/02/2017 Sig: LORAZEPAM 1 MG TABLET Take 1 tablet by mouth three * TIOTROPIUM BROMIDE 18 MCG CAP* Inhale 1 capsule as instructe* CITALOPRAM 20 MG TABLET Take 1 tablet by mouth once d* CLOPIDOGREL 75 MG TABLET TAKE ONE TABLET BY MOUTH ONCE* METOPROLOL TARTRATE 50 MG TAB* Take 0.5 tablets by mouth fou* ALBUTEROL SULFATE 2.5 MG/0.5 * Inhale 2.5-5 mg as instructed* BUDESONIDE-FORMOTEROL HFA 160* Inhale 2 Puffs as instructed * LISINOPRIL 5 MG TABLET Take 1 tablet by mouth once d* ATORVASTATIN 20 MG TABLET Take 1 tablet by mouth once d* ALBUTEROL SULFATE HFA 90 MCG/* Inhale 2 Puffs as instructed * NITROSTAT 0.4 MG SUBLINGUAL T* DISSOLVE 1 TABLET UNDER THE T* ASPIRIN 81 MG TABLET Take one (1) tablet daily . Problem List As Of Date 06/02/2017 Noted Resolved Hyperlipidemia, Mixed [E78.2] INVALID FOR* Prostate cancer (HCC) [C61] INVALID FOR* ASCVD (arteriosclerotic cardiovascular disease)*INVALID FOR* Hypertrophy of prostate with urinary obstructio*INVALID FOR* Chronic obstructive pulmonary disease (HCC) [J4*INVALID FOR* Essential hypertension [I10] INVALID FOR* Anxiety [F41.9] INVALID FOR* Prescriptions ordered this encounter Disp Refills Start End LORAZEPAM 1 MG TABLET 90 t* 2 06/30/2017 09/28/2017 Class: Print RX Route: ORAL Sig: Take 1 tablet by mouth three times daily for 90 days. Medications Discontinued During This Encounter LORazepam (ATIVAN) 1 mg tablet 90 t* 2 04/01/2017 06/02/2017 Class: Call Rx Route: ORAL Sig: Take 1 tablet by mouth three times daily for 90 days. Disc: Reason for discontinue is not on file. Disposition: Return in about 3 months (around 09/01/2017). Follow-up and Disposition History Recorded Encounter Status:Closed by MEI PEREZ MD on 06/02/17 PROGRESS Observed: 06/02/2017 Status: COMPLETED Source: [place] 10:20 AM [facility] HNO ID: [id number] Author: Mei Perez Service: (none) Author Type: Physician Type: Progress Notes Filed: 06/02/2017 11:07 AM Note Text: Chief Complaint Patient presents with: F/U 6 Month: Anxiety AND COPD HPI Hal Corley is a 76 year old male who presents here today for a 6 mo f/u. Here today with his , Geno. Anxiety - tells an improvement with use of Celexa 20 mg once daily and Ativan 1 mg 1 tab po TID. Patient notices some improvement with medication. Denies any SE of medications. HTN - Does have a BP machine at home but with so many appointments he doesn't have to check as often at home. States that BP is WNL. Denies any chest pain or dizziness. Admits to sob with COPD. Currently taking Lopressor 50 mg 0.5 tab po QID and Lisinopril 5 mg 1 tab po once daily. COPD - Follows with Dr. Calvillo every 4-6 months. Currently taking Spiriva 18 mcg once daily, Symbicort 160-4.5 mcg 2 puff bid and Proair 2 puffs once daily prn. Uses Nebulizer twice daily. Admits to having Influenza B and since that time doesn't feel his breathing hasn't done as well since that time, but better then previously. Prostate - Currently following with Dr. Hickman and receiving Hormone shots and steroid shots, which he believes he received his last one. Has completed two years worth. His last PSA that was completed was low. Lipids - States that he does try to watch his diet, but with shots it doesn't help. Currently taking Lipitor 20 mg once daily. Cardiology - Will be establishing with Dr. Dye. Past medical history, appointments, medications, allergies reviewed. Previous Medical History PAST MEDICAL HISTORY Diagnosis Date - Atypical chest pain - CAD (coronary artery disease) s/p CABG 1999, PCI w/ stents - COPD (chronic obstructive pulmonary disease) (HCC) - Hyperlipidemia Hyperlipidemia - Hypertension - Prostate cancer (HCC) Dx Dec 2014, s/p radiation, on hormonal therapy Previous Surgical History PAST SURGICAL HISTORY Procedure Laterality Date - PAST SURGICAL HISTORY OF TURP - PAST SURGICAL HISTORY OF 1999 triple bypass Family History FAMILY HISTORY Problem Relation Age of Onset - Cancer Mother breast, bone - Cancer Sister breast - Emphysema Sister Smoker - Diabetes Father - Heart Father - Diabetes Brother - Heart Brother - Other [OTHER] Brother Parkinsons - Diabetes Paternal Grandmother - Heart Paternal Grandmother Patient Allergies ALLERGIES Allergen Reactions - Imdur [Isosorbide M* Hives Black out and dizziness Current Medications Current Outpatient Prescriptions on File Prior to Visit: tiotropium (SPIRIVA WITH HANDIHALER) 18 mcg inhalation capsule Inhale 1 capsule as instructed once daily. Use with handihaler. citalopram (CELEXA) 20 mg tablet Take 1 tablet by mouth once daily. LORazepam (ATIVAN) 1 mg tablet Take 1 tablet by mouth three times daily for 90 days. clopidogrel (PLAVIX) 75 mg tablet TAKE ONE TABLET BY MOUTH ONCE A DAY. metoprolol tartrate, short acting, (LOPRESSOR) 50 mg tablet Take 0.5 tablets by mouth four times daily. albuterol (PROVENTIL) 2.5 mg/0.5 mL nebulizar solution PEDIATRIC ASTHMA Inhale 2.5-5 mg as instructed as directed. budesonide-formoterol (SYMBICORT) 160-4.5 mcg/actuation inhaler Inhale 2 Puffs as instructed twice daily. lisinopril (PRINIVIL) 5 mg tablet Take 1 tablet by mouth once daily. atorvastatin (LIPITOR) 20 mg tablet Take 1 tablet by mouth once daily. albuterol HFA (PROAIR HFA) 90 mcg/actuation inhaler Inhale 2 Puffs as instructed every 4 hours as needed for Wheezing/Shortness of Breath. NITROSTAT 0.4 mg SL tablet DISSOLVE 1 TABLET UNDER THE TONGUE NEEDED. EVERY 5 MINUTES X3 FOR C HEST PAIN ASPIRIN 81 MG TAB Take one (1) tablet daily . No current facility-administered medications on file prior to visit. Social History Social History Marital status: Spouse name: Years of education: Number of children: Social History Main Topics Smoking status: Former Smoker Packs/day: 2.00 Years: 40.00 Types: Cigarettes Start date: 11/08/1962 Quit date: 05/13/2002 Smokeless status: Never Used Alcohol use: Yes 1.8 oz/week 3 Cans of beer per week Comment: light beer Drug use: No EXAM: BP 110/68 (BP Site: Left Arm, BP Position: Sitting, BP Cuff Size: Regular Adult) Pulse 64 Resp 16 Wt 93.7 kg (206 lb 9.6 oz) BMI 28.81 kg/m2 General Appearance: Well appearing, alert, in no acute distress, well-hydrated, well nourished.. Lungs: Lungs clear to auscultation. No wheezing, rhonchi, rales. Heart: RRR without murmur, gallop, or rubs. No ectopy. Health Maintenance List TETANUS due on 1953 COLORECTAL CANCER SCREENING,SEE MODIFIER due on 1992 DIABETES SCREEN due on 10/21/2019 LIPID SCREEN due on 10/20/2021 PROSTATE CANCER SCREENING DISCUSSION Completed ADULT PREVNAR-13 Completed INFLUENZA Completed PNEUMOVAX AGE 65 AND OVER WITH 5YR LOOKBACK Completed Data reviewed External labs ASSESSMENT/PLAN: 1. Anxiety - ICD9: 300.00, ICD10: F41.9 (primary diagnosis) Improved on celexa; continue 20 mg daily for now - LORAZEPAM 1 MG TABLET 2. Essential hypertension - ICD9: 401.9, ICD10: I10 - good control - Continue current medication(s) - Recommended regular aerobic exercise. - Goal of BP <140/90 3. Chronic obstructive pulmonary disease, unspecified COPD type (HCC) - ICD9: 496, ICD10: J44.9 Follow with PulDr Rajinder ordoñez 4. Hyperlipidemia, mixed - ICD9: 272.2, ICD10: E78.2 - good control - Continue current medication. 5. ASCVD (arteriosclerotic cardiovascular disease) - ICD9: 429.2, 440.9, ICD10: I25.10 Follow with Cardiology 6. Hypertrophy of prostate with urinary obstruction - ICD9: 600.01, 599.69, ICD10: N40.1, N13.8/Prostate cancer Follow with Urology Follow up in 3 months Mei Perez MD The documentation for this note was completed by Vickie Carrillo Ma acting as scribe for Mei Perez MD. June 02, 2017 10:21 AM. PSA,TOTAL- DIAGNOSTIC Collected: 05/21/2017 Status: F Source: [place] 10:58 AM [facility] [place] TYPE CODE TESTS RESULT OUT OF RANGE REFERENCE UNITS LAB L501.9940 0.0-4.0 ng/mL PSA, Normal DIAGNOSTIC 0.01 Result Comment: This test was performed using the TPSA assay method for the [employer] chemistry system. Values obtained with different assay methods cannot be used interchangably. When changing PSA assays in the course of monitoring a patient, additional sequential testing should be carried out to confirm baseline values. Performed By: #### [id number] #### [facility] [address] [place], [address] CNOV Observed: 05/06/2017 Status: COMPLETED Source: [place] 3:00 PM [facility] Office Visit (FAMPWS) HAL CORLEY ([id number]) 1940 M Date Time Provider Department 05/06/17 3:00 PM MEI PEREZ During your visit today, we recorded the following information about you: Pulse Respiration Blood pressure Weight 66/minute 14/minute 122/70 93 kg Mei Peerz MD 05/06/2017 3:37 PM Signed Chief Complaint Patient presents with: F/U 1 month HPI Hal Carr Barney is a 76 year old male who presents here today for 1 month follow up. COPD: is following with [facility] Dr. Calvillo. He is trying Spiriva inhaler at this time on trial basis. Is also using Symbicort, proair inhaler. He has noticed some improvement with the breathing. He still get SOB with walking long distance. Was able to get back to the office today without a wheel chair. Anxiety: Controlled most days, gets emotional at times if he gets to thinking about things too much. Is taking Ativan 1 mg TID which he feels is helping. Has taken the Celexa for about 5 days, tolerated it ok, admits that he did not take it long enough to notice if the anxiety was any different. He is hesitates to use it after reading the information and potential side effects. Pt was concerned about the possible problems of drinking beer with the Celexa. Pt states he drink 1-3 beers a week. Denies being a heavy drinker. Past medical history, appointments, medications, allergies reviewed. Previous Medical History PAST MEDICAL HISTORY Diagnosis Date - Atypical chest pain - CAD (coronary artery disease) s/p CABG 1999, PCI w/ stents - COPD (chronic obstructive pulmonary disease) (HCC) - Hyperlipidemia Hyperlipidemia - Hypertension - Prostate cancer (HCC) Dx Dec 2014, s/p radiation, on hormonal therapy Previous Surgical History PAST SURGICAL HISTORY Procedure Laterality Date - PAST SURGICAL HISTORY OF TURP - PAST SURGICAL HISTORY OF 1999 triple bypass Family History FAMILY HISTORY Problem Relation Age of Onset - Cancer Mother breast, bone - Cancer Sister breast - Emphysema Sister Smoker - Diabetes Father - Heart Father - Diabetes Brother - Heart Brother - Other [OTHER] Brother Parkinsons - Diabetes Paternal Grandmother - Heart Paternal Grandmother Patient Allergies ALLERGIES Allergen Reactions - Imdur [Isosorbide M* Hives Black out and dizziness Current Medications Current Outpatient Prescriptions on File Prior to Visit: tiotropium (SPIRIVA WITH HANDIHALER) 18 mcg inhalation capsule Inhale 1 capsule as instructed once daily. Use with handihaler. citalopram (CELEXA) 20 mg tablet Take 1 tablet by mouth once daily. LORazepam (ATIVAN) 1 mg tablet Take 1 tablet by mouth three times daily for 90 days. clopidogrel (PLAVIX) 75 mg tablet TAKE ONE TABLET BY MOUTH ONCE A DAY. metoprolol tartrate, short acting, (LOPRESSOR) 50 mg tablet Take 0.5 tablets by mouth four times daily. albuterol (PROVENTIL) 2.5 mg/0.5 mL nebulizar solution PEDIATRIC ASTHMA Inhale 2.5-5 mg as instructed as directed. budesonide-formoterol (SYMBICORT) 160-4.5 mcg/actuation inhaler Inhale 2 Puffs as instructed twice daily. lisinopril (PRINIVIL) 5 mg tablet Take 1 tablet by mouth once daily. atorvastatin (LIPITOR) 20 mg tablet Take 1 tablet by mouth once daily. albuterol HFA (PROAIR HFA) 90 mcg/actuation inhaler Inhale 2 Puffs as instructed every 4 hours as needed for Wheezing/Shortness of Breath. NITROSTAT 0.4 mg SL tablet DISSOLVE 1 TABLET UNDER THE TONGUE NEEDED. EVERY 5 MINUTES X3 FOR C HEST PAIN ASPIRIN 81 MG TAB Take one (1) tablet daily . No current facility-administered medications on file prior to visit. Social History Social History Marital status: Spouse name: Years of education: Number of children: Social History Main Topics Smoking status: Former Smoker Packs/day: 2.00 Years: 40.00 Types: Cigarettes Start date: 11/08/1962 Quit date: 05/13/2002 Smokeless status: Never Used Alcohol use: Yes 1.8 oz/week 3 Cans of beer per week Comment: light beer Drug use: No EXAM: BP 122/70 Pulse 66 Resp 14 Wt 93 kg (205 lb) BMI 28.59 kg/m2 General Appearance: Well appearing, alert, in no acute distress, well-hydrated, well nourished.. Lungs: Lungs clear to auscultation. No wheezing, rhonchi, rales. Heart: RRR without murmur, gallop, or rubs. No ectopy. Health Maintenance List TETANUS due on 1953 COLORECTAL CANCER SCREENING,SEE MODIFIER due on 1992 DIABETES SCREEN due on 10/21/2019 LIPID SCREEN due on 10/20/2021 PROSTATE CANCER SCREENING DISCUSSION Completed ADULT PREVNAR-13 Completed INFLUENZA Completed PNEUMOVAX AGE 65 AND OVER WITH 5YR LOOKBACK Completed Data reviewed None ASSESSMENT/PLAN: 1. Anxiety - ICD9: 300.00, ICD10: F41.9 (primary diagnosis) Continue with Ativan 1 mg TID Use Celexa daily for a month and follow up in May as scheduled 2. Chronic obstructive pulmonary disease, unspecified COPD type (HCC) - ICD9: 496, ICD10: J44.9 Continue current medications. Continue with Dr. Calvillo [place] Follow up as scheduled in May. Mei Perez MD The documentation for this note was completed by Malu Tavares Ma acting as scribe for Mei Perez MD. May 06, 2017 2:57 PM. Referring Provider: MEI PEREZ [[id number]] Allergies As of Date: 05/06/2017 Noted Allergy Reaction IMDUR (ISOSORBIDE MONONITRATE) 03/14/2015 4 - Hives Comments: Black out and dizziness Date Reviewed: 05/06/2017 Reviewed by: Malu Tavares Ma - Fully Assessed Reason for Visit: F/U 1 month [1175] Primary Visit Diagnosis:Anxiety [F41.9] Other Visit Diagnosis:Chronic obstructive pulmonary disease, unspecified COPD type (HCC) [J44.9] Prescriptions as of 05/06/2017 Sig: TIOTROPIUM BROMIDE 18 MCG CAP* Inhale 1 capsule as instructe* CITALOPRAM 20 MG TABLET Take 1 tablet by mouth once d* LORAZEPAM 1 MG TABLET Take 1 tablet by mouth three * CLOPIDOGREL 75 MG TABLET TAKE ONE TABLET BY MOUTH ONCE* METOPROLOL TARTRATE 50 MG TAB* Take 0.5 tablets by mouth fou* ALBUTEROL SULFATE 2.5 MG/0.5 * Inhale 2.5-5 mg as instructed* BUDESONIDE-FORMOTEROL HFA 160* Inhale 2 Puffs as instructed * LISINOPRIL 5 MG TABLET Take 1 tablet by mouth once d* ATORVASTATIN 20 MG TABLET Take 1 tablet by mouth once d* ALBUTEROL SULFATE HFA 90 MCG/* Inhale 2 Puffs as instructed * NITROSTAT 0.4 MG SUBLINGUAL T* DISSOLVE 1 TABLET UNDER THE T* ASPIRIN 81 MG TABLET Take one (1) tablet daily . Problem List As Of Date 05/06/2017 Noted Resolved Hyperlipidemia, Mixed [E78.2] INVALID FOR* Prostate cancer (HCC) [C61] INVALID FOR* ASCVD (arteriosclerotic cardiovascular disease)*INVALID FOR* Hypertrophy of prostate with urinary obstructio*INVALID FOR* Chronic obstructive pulmonary disease (HCC) [J4*INVALID FOR* Essential hypertension [I10] INVALID FOR* Anxiety [F41.9] INVALID FOR* Disposition: Return if symptoms worsen or fail to improve. Follow-up and Disposition History Recorded Encounter Status:Closed by MEI PEREZ MD on 05/06/17 PROGRESS Observed: 05/06/2017 Status: COMPLETED Source: [place] 2:57 PM [facility] REPOSITORY HNO ID: [id number] Author: Mei Perez Service: (none) Author Type: Physician Type: Progress Notes Filed: 05/06/2017 3:37 PM Note Text: Chief Complaint Patient presents with: F/U 1 month HPI Hal Corley is a 76 year old male who presents here today for 1 month follow up. COPD: is following with [facility] Dr. Calvillo. He is trying Spiriva inhaler at this time on trial basis. Is also using Symbicort, proair inhaler. He has noticed some improvement with the breathing. He still get SOB with walking long distance. Was able to get back to the office today without a wheel chair. Anxiety: Controlled most days, gets emotional at times if he gets to thinking about things too much. Is taking Ativan 1 mg TID which he feels is helping. Has taken the Celexa for about 5 days, tolerated it ok, admits that he did not take it long enough to notice if the anxiety was any different. He is hesitates to use it after reading the information and potential side effects. Pt was concerned about the possible problems of drinking beer with the Celexa. Pt states he drink 1-3 beers a week. Denies being a heavy drinker. Past medical history, appointments, medications, allergies reviewed. Previous Medical History PAST MEDICAL HISTORY Diagnosis Date - Atypical chest pain - CAD (coronary artery disease) s/p CABG 1999, PCI w/ stents - COPD (chronic obstructive pulmonary disease) (HCC) - Hyperlipidemia Hyperlipidemia - Hypertension - Prostate cancer (HCC) Dx Dec 2014, s/p radiation, on hormonal therapy Previous Surgical History PAST SURGICAL HISTORY Procedure Laterality Date - PAST SURGICAL HISTORY OF TURP - PAST SURGICAL HISTORY OF 1999 triple bypass Family History FAMILY HISTORY Problem Relation Age of Onset - Cancer Mother breast, bone - Cancer Sister breast - Emphysema Sister Smoker - Diabetes Father - Heart Father - Diabetes Brother - Heart Brother - Other [OTHER] Brother Parkinsons - Diabetes Paternal Grandmother - Heart Paternal Grandmother Patient Allergies ALLERGIES Allergen Reactions - Imdur [Isosorbide M* Hives Black out and dizziness Current Medications Current Outpatient Prescriptions on File Prior to Visit: tiotropium (SPIRIVA WITH HANDIHALER) 18 mcg inhalation capsule Inhale 1 capsule as instructed once daily. Use with handihaler. citalopram (CELEXA) 20 mg tablet Take 1 tablet by mouth once daily. LORazepam (ATIVAN) 1 mg tablet Take 1 tablet by mouth three times daily for 90 days. clopidogrel (PLAVIX) 75 mg tablet TAKE ONE TABLET BY MOUTH ONCE A DAY. metoprolol tartrate, short acting, (LOPRESSOR) 50 mg tablet Take 0.5 tablets by mouth four times daily. albuterol (PROVENTIL) 2.5 mg/0.5 mL nebulizar solution PEDIATRIC ASTHMA Inhale 2.5-5 mg as instructed as directed. budesonide-formoterol (SYMBICORT) 160-4.5 mcg/actuation inhaler Inhale 2 Puffs as instructed twice daily. lisinopril (PRINIVIL) 5 mg tablet Take 1 tablet by mouth once daily. atorvastatin (LIPITOR) 20 mg tablet Take 1 tablet by mouth once daily. albuterol HFA (PROAIR HFA) 90 mcg/actuation inhaler Inhale 2 Puffs as instructed every 4 hours as needed for Wheezing/Shortness of Breath. NITROSTAT 0.4 mg SL tablet DISSOLVE 1 TABLET UNDER THE TONGUE NEEDED. EVERY 5 MINUTES X3 FOR C HEST PAIN ASPIRIN 81 MG TAB Take one (1) tablet daily . No current facility-administered medications on file prior to visit. Social History Social History Marital status: Spouse name: Years of education: Number of children: Social History Main Topics Smoking status: Former Smoker Packs/day: 2.00 Years: 40.00 Types: Cigarettes Start date: 11/08/1962 Quit date: 05/13/2002 Smokeless status: Never Used Alcohol use: Yes 1.8 oz/week 3 Cans of beer per week Comment: light beer Drug use: No EXAM: BP 122/70 Pulse 66 Resp 14 Wt 93 kg (205 lb) BMI 28.59 kg/m2 General Appearance: Well appearing, alert, in no acute distress, well-hydrated, well nourished.. Lungs: Lungs clear to auscultation. No wheezing, rhonchi, rales. Heart: RRR without murmur, gallop, or rubs. No ectopy. Health Maintenance List TETANUS due on 1953 COLORECTAL CANCER SCREENING,SEE MODIFIER due on 1992 DIABETES SCREEN due on 10/21/2019 LIPID SCREEN due on 10/20/2021 PROSTATE CANCER SCREENING DISCUSSION Completed ADULT PREVNAR-13 Completed INFLUENZA Completed PNEUMOVAX AGE 65 AND OVER WITH 5YR LOOKBACK Completed Data reviewed None ASSESSMENT/PLAN: 1. Anxiety - ICD9: 300.00, ICD10: F41.9 (primary diagnosis) Continue with Ativan 1 mg TID Use Celexa daily for a month and follow up in May as scheduled 2. Chronic obstructive pulmonary disease, unspecified COPD type (HCC) - ICD9: 496, ICD10: J44.9 Continue current medications. Continue with Ai Bustillo Follow up as scheduled in May. Mei Perez MD The documentation for this note was completed by Malu Tavares Ma acting as scribe for Mei Perez MD. May 06, 2017 2:57 PM. PROGRESS Observed: 04/09/2017 Status: COMPLETED Source: [place] 9:47 AM [facility] HNO ID: [id number] Author: Mei Perez Service: (none) Author Type: Physician Type: Progress Notes Filed: 04/09/2017 10:28 AM Note Text: Chief Complaint Patient presents with: Hospital Follow Up HPI Hal Corley is a 76 year old male who presents here today for Hospital Discharge Follow up. Pt went to [facility] on 03/29/17 for COPD flare up and flu. He was admitted and treated with antibiotics, fluids, breathing treatments. Pt was discharged on 03/31/17. Pt saw Dr. Calvillo, Dog Or Animal Sitter who suggested pt start taking Spiriva inhaler (pt has not picked up yet) and gave him some more prednisone, pt has 2 more days of steroids left. He states he does not feel too bad other than he still has SOB and little energy. Not able to walk far without getting extremely SOB. He does use oxygen usually at night but the hospital advised pt to use the oxygen through the day as well at this time. Pt uses Proair inhaler, Symbicort inhaler and nebulizer at home. Follows with Dr Ball for prostate cancer; has recommended celexa for anxiety; he is already on ativan. Past medical history, appointments, medications, allergies reviewed. Previous Medical History PAST MEDICAL HISTORY Diagnosis Date - Atypical chest pain - CAD (coronary artery disease) s/p CABG 1999, PCI w/ stents - COPD (chronic obstructive pulmonary disease) (HCC) - Hyperlipidemia Hyperlipidemia - Hypertension - Prostate cancer (HCC) Dx Dec 2014, s/p radiation, on hormonal therapy Previous Surgical History PAST SURGICAL HISTORY Procedure Laterality Date - PAST SURGICAL HISTORY OF TURP - PAST SURGICAL HISTORY OF 1999 triple bypass Family History FAMILY HISTORY Problem Relation Age of Onset - Cancer Mother breast, bone - Cancer Sister breast - Emphysema Sister Smoker - Diabetes Father - Heart Father - Diabetes Brother - Heart Brother - Other [OTHER] Brother Parkinsons - Diabetes Paternal Grandmother - Heart Paternal Grandmother Patient Allergies ALLERGIES Allergen Reactions - Imdur [Isosorbide M* Hives Black out and dizziness Current Medications Current Outpatient Prescriptions on File Prior to Visit: LORazepam (ATIVAN) 1 mg tablet Take 1 tablet by mouth three times daily for 90 days. clopidogrel (PLAVIX) 75 mg tablet TAKE ONE TABLET BY MOUTH ONCE A DAY. metoprolol tartrate, short acting, (LOPRESSOR) 50 mg tablet Take 0.5 tablets by mouth four times daily. albuterol (PROVENTIL) 2.5 mg/0.5 mL nebulizar solution PEDIATRIC ASTHMA Inhale 2.5-5 mg as instructed as directed. budesonide-formoterol (SYMBICORT) 160-4.5 mcg/actuation inhaler Inhale 2 Puffs as instructed twice daily. lisinopril (PRINIVIL) 5 mg tablet Take 1 tablet by mouth once daily. atorvastatin (LIPITOR) 20 mg tablet Take 1 tablet by mouth once daily. albuterol HFA (PROAIR HFA) 90 mcg/actuation inhaler Inhale 2 Puffs as instructed every 4 hours as needed for Wheezing/Shortness of Breath. NITROSTAT 0.4 mg SL tablet DISSOLVE 1 TABLET UNDER THE TONGUE NEEDED. EVERY 5 MINUTES X3 FOR C HEST PAIN ASPIRIN 81 MG TAB Take one (1) tablet daily . No current facility-administered medications on file prior to visit. Social History Social History Marital status: Spouse name: Years of education: Number of children: Social History Main Topics Smoking status: Former Smoker Packs/day: 2.00 Years: 40.00 Types: Cigarettes Start date: 11/08/1962 Quit date: 05/13/2002 Smokeless status: Never Used Alcohol use: Yes 1.8 oz/week 3 Cans of beer per week Comment: light beer Drug use: No EXAM: BP 130/80 Pulse 72 Resp 14 Wt 90.3 kg (199 lb) SpO2 95% BMI 27.75 kg/m2 General Appearance: Well appearing, alert, in no acute distress, well-hydrated, well nourished., Overweight. Lungs: Lungs clear to auscultation. No wheezing, rhonchi, rales. Heart: RRR without murmur, gallop, or rubs. No ectopy. Health Maintenance List TETANUS due on 1953 COLORECTAL CANCER SCREENING,SEE MODIFIER due on 1992 DIABETES SCREEN due on 10/21/2019 LIPID SCREEN due on 10/20/2021 PROSTATE CANCER SCREENING DISCUSSION Completed ADULT PREVNAR-13 Completed INFLUENZA Completed PNEUMOVAX AGE 65 AND OVER WITH 5YR LOOKBACK Completed Data reviewed [facility] hospital reports from 03/29/17-03/31/17 ASSESSMENT/PLAN: 1. Hospital discharge follow-up - ICD9: V67.59, ICD10: Z09 (primary diagnosis) No further treatment or testing needed at this time Continue symptomatic treatment, fluids, rest 2. Anxiety - ICD9: 300.00, ICD10: F41.9 Continue with Ativan Start Celexa 20 mg daily 3. Chronic obstructive pulmonary disease, unspecified COPD type (HCC) - ICD9: 496, ICD10: J44.9 .Continue current medications. Continue to follow with Dr. Calvillo, Pulmonology - TIOTROPIUM BROMIDE 18 MCG CAPSULE WITH INHALATION DEVICE 4. Prostate Cancer Follow with Dr Ball Follow up in 1 month to check anxiety Mei Perez MD The documentation for this note was completed by Malu Tavares Ma acting as scribe for Mei Perez MD. April 09, 2017 9:47 AM. PULMONARY VISIT REPORT Observed: 04/08/2017 Status: F Source: [place] 12:06 PM [facility] [address] [place] [address] OFFICE VISIT Date of Service: 04/08/17 MR#: [id number] Acct: [id number] Name: HAL CORLEY Rep #: [id number] : 1940 Provider: Yong Calvillo D.O. Age/Sex: 76/M [facility] Status: Signed Assessment AND Plan 1. COPD (chronic obstructive pulmonary disease) J44.9 Plan The patient has advanced stage COPD based off of his most recent PFTs. He was recently admitted to the hospital and treated for influenza B. He is currently amidst a steroid taper. He has not yet returned back to his baseline breathing quality. Although his most recent 6 minute walk test revealed no need for supplemental oxygen, the patient was discharged from the hospital on 2 L/min of supplemental oxygen. He has been maintained on Symbicort and as needed albuterol up until this point. However, given his increased reliance on his albuterol rescue inhaler, we will plan to add Spiriva Respimat to his inhaler regimen. The patient has been instructed to continue his prednisone taper to completion. 2. Chronic hypoxemic respiratory failure J96.11 Plan Plan to repeat a 6 minute walk test at his follow-up office visit to assess his ongoing need for supplemental oxygen, following his recent hospitalization. 3. Bronchiectasis J47.9 Plan Continue the use of Acapella in his home environment. 4. Influenza B J10.1 Plan The patient was recently hospitalized for an acute COPD exacerbation due to influenza B. He is currently completing his outpatient treatment plan. I will see him back in 2 months for follow-up. Plan Detail Other Medications New: tiotropium bromide 2.5 mcg/actuation (Spiriva Respimat) admini2 puffs Inhalation Q24H ster at approximately the same time(s) each day Follow Up 2 Months (DMB) HPI HPI Comments Details: The patient is a 76-year-old male who presents to the clinic today for a routine scheduled follow-up office visit. The patient's is present at today's office visit. If you recall, the patient has a known history of COPD. He has a prior smoking history of 2-3 packs per day 45 years, having quit completely 14 years ago. The patient does have a history of coronary artery disease for which he is status post three- vessel CABG in January 2000. His last surface echocardiogram showed normal LV size and function with an ejection fraction of 65%. The RVSP was unable to be estimated. CTA chest, dated April 2016, showed no evidence for PE. There was radiographic evidence of emphysematous changes in the lungs along with a stable triangular density in the lateral aspect of the right lower lobe. 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 A repeat 6 minute walk test was completed in March 2017 showed no need for supplemental oxygen with exertion. Repeat pulmonary function tests were also completed at that time and again demonstrated the presence of an irreversible severe large airways obstructive ventilatory defect with asymmetric reduction in diffusing capacity. The patient was just recently admitted to the hospital and treated for a COPD exacerbation due to influenza B. He was discharged 1 week ago with a prednisone taper. His breathing quality has not yet returned back to baseline. In fact, he is now utilizing 2 L/min of supplemental oxygen since his discharge from the hospital. He has also been relying on his rescue inhalers with increasing frequency. He remains compliant with the use of Symbicort twice daily. Patient has already completed pulmonary rehab previously. He denies current fevers, chills or night sweats. His weight has been stable. He denies chest pain, dizziness or lightheadedness. Intake Vital Signs04/08/17 Height 5 ft 11 in 04/08/17 Weight: 205 lb 04/08/17 Body Mass Index (BMI) 28.5 Intake Visit Reasons: 6 M FU Accompanied by: Allergies isosorbide [From Imdur] Allergy (Verified 04/08/17 11:11) Other Medications Aspirin [Aspirin, Baby] 81 mg PO DAILY@0800 12/29/14 [History Confirmed 04/08/17] Atorvastatin Calcium [Lipitor] 20 mg PO QHS 12/29/14 [History Confirmed 04/08/17] Lisinopril 1 mg PO DAILY 12/29/14 [History Confirmed 04/08/17] Lorazepam [Ativan] 1 mg PO TID PRN PRN 12/29/14 [History Confirmed 04/08/17] Metoprolol Tartrate 25 mg PO 4X/DAY 12/29/14 [History Confirmed 04/08/17] Nitroglycerin [Nitrostat] 0.4 mg SL PRN PRN 12/29/14 [History Confirmed 04/08/17] Albuterol Inhaler [Ventolin Hfa] 2 puff INHALATION Q4H PRN PRN 04/19/16 [History Confirmed 04/08/17] Clopidogrel Bisulfate [Plavix] 75 mg PO DAILY 04/19/16 [History Confirmed 04/08/17] Budesonide/Formoterol 160/4.5 [Symbicort 160/4.5 Mcg Inhaler (SP)] 2 puff INHALATION DAILY 07/14/16 [History Confirmed 04/08/17] Prednisone 10 mg PO UD #26 tab 03/31/17 [Rx Confirmed 04/08/17] albuterol sulfate 2.5 mg/3 mL (0.083 %) solution for nebulization 2.5 mg INHALATION Q4H PRN ml 04/03/17 [History Confirmed 04/08/17] pseudoephedrine-guaifenesin ER 120 mg-1,200 mg tab,extend release 12hr 1 tab PO Q12H 04/03/17 [History Confirmed 04/08/17] tiotropium bromide 2.5 mcg/actuation mist for inhalation 2 puff INHALATION Q24H #1 device 04/08/17 [Rx Confirmed 04/08/17] PFSH Medical History SOB (shortness of breath) (Acute) Cough (Chronic) 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 (Chronic) Chronic hypoxemic respiratory failure (Chronic) Bronchiectasis (Chronic) Benign essential HTN (Chronic) HLD (hyperlipidemia) (Chronic) CAD (coronary artery disease) (Chronic) Hypotension (Acute) Prostate CA (Chronic) COPD (chronic obstructive pulmonary disease) (Acute) Influenza B (Acute) Social History Smoking Status: Former smoker how long ago did patient quit smokin, second hand exposure: Yes alcohol intake: never substance use type: does not use Review of Systems Const CONSTITUTIONAL: Positive daytime sleepiness; negative anorexia, body ache, chills, fever(s), night sweats, oral thrush, stops breathing during sleep, weight loss, sleeping in chair, fatigue, weight loss, weight gain, frequent colds, seasonal allergies, other, headache(s) or orthopnea EETM Ear Nose Throat Mouth: Positive hearing normal and dry mouth in morning; negative hard of hearing, hoarseness, change in vision, itchy eyes, eye pain, swallowing Difficulty, ear pain, nose bleed, headache(s), mouth pain, nasal congestion, nasal discharge, post nasal drip, sinus pain, sinus pressure, sore throat or other Cardio Cardiovascular: Negative chest pain, chest pain at rest, chest pain with activity, irregular heart rhythm, edema, shortness of breath when lying down, palpitations, murmur or other Resp Respiratory: Positive as per HPI, wheezing and inhalers; negative shortness of breath, pain with cough, chest congestion, cough, chest tightness, pain on inspiration, increase use of rescue inhalers, snoring, apnea or other Gastro Gastrointestional: Negative bloody stools, change in appetite, difficulty swallowing, reflux, hematemesis, melena stool, loose stool, constipation or other Genitourinary: Negative blood in urine, nocturia, pain with urination or other Musc Musculoskeletal: Negative body pain, back pain, neck pain or other Skin/Breast Skin/Breast: Positive itching; negative dry skin, rash, unusual bruising, breast lump or other Neuro Neurological: Negative restless legs, confusion, weakness or other Psych Psychocological: Positive anxiety and hopelessness; negative abnormal sleep pattern, thoughts of hurting self/others or other Lymph Lymphatic: Negative easy bleeding, easy bruising, swollen lymph nodes or other Exam Const Constitutional: Positive conversant, cooperative, well developed, well nourished, good hygiene and wearing supplemental oxygen Head Head: Positive normocephalic and atraumatic; negative cyanosis of lips/distal nose Eyes Eye: Positive clear conjunctiva; negative nystagmus or scleral abnormality Ears Ear: Positive hearing normal; negative hard of hearing Nose Nose: Positive external nose normal; negative epistaxis Mouth Mouth: Positive oral mucosae normal and posterior oropharynx is adequate; negative no lesions, post nasal drip or oral thrush present Mallampati Score: I: Mallampati Score Neck Neck: Positive normal visual inspection and trachea midline; negative lymphadenopathy Chest Wall Chest: Positive increased A/P diameter Normal AP diameter. Resp Severely reduced air movement bilaterally without appreciable wheezes, rales or rhonchi. Prolonged expiratory phase. Cardio Cardiac: Positive regular rate, regular rhythm, S1 normal and S2 normal; negative rub, gallop or murmur GI GI: Positive normal bowel sounds Soft without distention Genitourinary: Positive deferred Musc Musculoskeletal: Positive steady gait Skin Pulmonary Skin Exam: Positive intact; negative lesion, ulcers, dermal atrophy or rash Pulses Pulse: Yes Pedal pulses present: Extremities Extremities: No clubbing, No edema Early nailbed cyanosis is present Neuro Neurologic: Yes conversant, Yes no focal neuro deficits, Yes cooperative Lymph Lymphatic: No lymphadenopathy Psych Appearance: Positive grossly normal Mental Status: Positive mental status grossly normal Mood: Positive congruent mood Affect: Positive normal affect Coding Level of Care Code Off vis,est,level 3 Diagnoses COPD (chronic obstructive pulmonary disease) J44.9 Chronic hypoxemic respiratory failure J96.11 Bronchiectasis J47.9 Influenza B J10.1 04/08/17 1206 <Electronically signed by Yong Calvillo DO> Date Yong Calvillo DO Cosigner Signature: Date (if applicable) CC: Mei Perez MD DISCHARGE SUMMARY Observed: 03/31/2017 Status: F Source: [place] 6:14 PM [facility] Medical Records Department [address] [place] [address] [place] [address] Discharge Summary 03/31/17 1759 MR#: [id number] Acct: [id number] Name: HAL CORLEY Rep #: [id number] : 1940 76 From: Mati HOPE PCP: Maria G SOTO,Mei Status: DIS IN Y Location: [place] [address] ADDENDUM by Sushila Rivers on 03/31/17 at 1814 Code Visit ATTENDING PHYSICIAN NOTE: I have seen and examined the patient independently and agree with the assessment, plan, history per Mati Nieto as noted. Discharge Diagnoses: (1) Acute Sepsis secondary to Acute on Chronic Hypoxic Respiratory Failure secondary to Acute on Chronic COPD exacerbation and Influenza B Viral Syndrome (2) Acute kidney injury secondary to acute influenza B infection and concurrent COPD exacerbation (3) Hypotension, Transient, Resolved, suspect likely secondary to acute influenza B viral syndrome and sepsis (4) Prostate CA on immunotherapy (5) CAD s/p CABG (6) Hypertension: Holding regimen given low BP upon presentation, restart once appropriate. (7) Hyperlipidemia: Continue home statin regimen. (8) Anxiety (9) Former Tobacco use (10) Overweight Discharge Summary: The patient is a 76 y/o M w/ PMHx: Prostate CA on immunotherapy, Chronic COPD w/ Chronic Hypoxic Respiratory Failure, CAD s/p CABG, HTN, HLD, Anxiety, Former Tobacco use who presented to the [facility] ED on 03/29/17 w/ history of ongoing dyspnea, mildly productive cough, myalgias and arthralgias as well as loose stool 1 in addition to nausea 3 days. ED evaluation notable and patient admitted w/ Acute on Chronic Hypoxic Respiratory Failure secondary to Acute on Chronic COPD exacerbation and Influenza B Viral Syndrome. Upon presentation patient had noted increased work of breathing, increased RR, accessory muscle usage as well as elevated LA. CXR w/ chronic changes, CBC on admission w/ WBC 5.5 without L shift. Initially concern for possible PNA, but ruled out. Admitted to PCU, maintained on oxygen with wean as tolerated to home oxygen supplementation, continued ATC duonebs, PRN albuterol, IV methylprednisolone with prednisone transition, influenza B positive with deferred tamiflu given length of timeline, initial rocephin and azithromycin but given presentation PNA ruled out, discontinued abx therapy advised per Pulmonary who was consulted and followed. LA 2.6-->1.5. Patient w/ Acute kidney injury secondary to acute influenza B infection w/ GI losses, sepsis and concurrent COPD exacerbation w/ admission BUN/Cr 19/1.71, prior baseline creatinine noted to be normal range, hydrated, held nephrotoxic regimen, repeat 03/30/17 BUN/Cr 18/1.14. Patient w/ hypotension upon initial presentation in the ED, improved following hydration and BP regimen held. Patient clinically improved and was discharged to home in stable condition with follow-up with PCP and Pulmonary on aerosols, steroid taper with oxygen trial prior to discharge w/ noted 87% with exertion, 92% on RA at rest, 92% on 2L NC with exertion thus discharged to home on recommendation 2L NC continuous pending re-assessment per pulmonary has had been on PRN O2 only prior. DAY OF DISCHARGE PROGRESS NOTE: Subjective: Patient without acute event overnight per self and nursing report. Patient denies fever, chills, nausea, emesis, abdominal pain, chest pain or worsened dyspnea. Patient agreeable to discharge to home. Patient will be discharged with follow-up with primary care physician within 3-5 days in addition to pulmonary. Objective: T 97.9, heart rate 94, BP 134/82, respiratory rate 18, 92% on room air. Physical Examination: General: awake, alert, oriented x 3 and cooperative, seated upright in bed in no apparent distress, improved appearance, less fatigued, more interactive. Skin: normal color, turgor, no icterus, cyanosis. HEENT: AT/NC, EOMI, PERRLA, improved less dry MM. Lungs: Improved BS, still diminished BL bases, less coarse, no wheezing currently, improved effort. Heart: Regular rate and rhythm; no gallop, rub audible. Abdomen: soft, overweight, NTTP, ND, normalized. Extremities: no cyanosis, clubbing, or edema. Neurological: patient awake, alert, oriented x 3; cognitive function intact; pupils equally reactive to light and accomodation; cranial nerves II-XII grossly normal, moving all 4 extremities, no focal deficits, strength improved, moderately globally decreased secondary to acute presentation. Psychiatric: affect appears improved, normalized, no acute evidence of depressive or anxiety feelings. Assessment and Plan: Please see hospital summary above. Inpatient E AND M: [id number] Disch Hosp 03/31/17 1814 <Electronically signed by Sushila Rivers > Date Sushila Rivers cc: JAYY Nieto; Sushila Rivers; Mei Perez MD * Signed Discharge Date and Diagnosis Date of Admission: 03/29/17 Date of Discharge: 03/31/17 - Primary Discharge Diagnosis Acute sepsis 2/2 acute influenza B bronchitis Acute hypoxia 2/2 acute COPD exacerbation 2/2 influenza B Chronic respiratory failure HTN CAD Anxiety Prostate cancer. - Secondary Discharge Diagnosis Chronic Problems Benign essential HTN (Chronic) HLD (hyperlipidemia) (Chronic) CAD (coronary artery disease) (Chronic) Prostate CA (Chronic) Hospital Course and Treatment Imaging Results: RAD/Chest 1 View (Portable) IMPRESSION: Status post sternotomy. Calcified plaques of the aortic arch. No acute cardiopulmonary disease process is seen. There has been complete interval resolution of the right lower lobe infiltrate noted on the previous study. Rajinder - Pulmonology Operations: None Procedures: None Summary of Care Provided: Physical exam on day of discharge: General: Resting comfortably NAD Psych: A/Ox3 normal affect HEENT: PEARRLA AT NC Neck: Supple NT CV: RRR no m/t/r/g/h Resp: CTA Abd: [id number] Soft NT no guarding or rigidity Ext: DP2+= no edema Skin: W/D normal turgor Lymph/Heme: No active bleeding or adenopathy Neuro: CN2-12 intact Hospital course: The patient is a 76 year old M who presents to the emergency room with increased shortness of breath, cough, wheezing for 3 days prior to admission. He has a history of COPD and is followed by Dr. Calvillo from pulmonology, he has a history of chronic hypoxic respiratory failure dependent on oxygen 2 L at night although notably is supposed to be also using during the day but he has not been. In the emergency room he was found to be hypotensive with systolic blood pressure in the 70s although this did respond to fluid resuscitation. He had an elevated lactic acid at 2.6, he is found to be very wheezy. Checks x-ray revealed no acute process. He is felt to have a COPD exacerbation. A rapid influenza screen was done did demonstrate influenza B. With hypotension, elevated lactate, pulse greater than 90, tachypnea, and source of infection being influenza B bronchitis he was admitted with acute sepsis secondary to influenza B with hypoxia and COPD exacerbation. He was placed on steroids. Initially he was placed on antibiotics. These were discontinued the following day as no bacterial process was suspected. The following day the patient had clear lungs, decreased wheezing, decreased oxygen demand, he remained stable on 2 L. Tamiflu was initially started however discontinued as his symptoms have been going on for about 3 days prior and pulmonology did not feel there be any benefit. Pulmonology followed the patient while here. He was transitioned to PO prednisone and given a tapering course. He was walked and determined to need further O2 requirements than just at night, and would need O2 during the day and with ambulation. This was arranged, and he already had a portable tank and concentrator. He also has a nebulizer with and his had filled a new script for aerosols for it the morning of discharge. He was discharged home in stable condition will need to keep his follow-up appointment with Dr. Calvillo in pulmonary clinic. He is also follow-up with his PCP in 1-2 weeks. He will complete his steroid taper and continue his home aerosols. This patient was seen by Mati Nieto PA-C under the supervision of Doctor Tita. Discharge Diet: Low fat/ Low Cholesterol, 4000 mg Sodium Diet Discharge Activity: Return to Normal Activity Home Medications: Medications to take at Discharge Aspirin [Aspirin, Baby] 81 mg PO DAILY@0800 12/29/14 Atorvastatin Calcium [Lipitor] 20 mg PO QHS 12/29/14 Lisinopril 1 mg PO DAILY 12/29/14 Lorazepam [Ativan] 1 mg PO TID PRN PRN 12/29/14 Metoprolol Tartrate 25 mg PO 4X/DAY 12/29/14 Nitroglycerin [Nitrostat] 0.4 mg SL PRN PRN 12/29/14 Albuterol Inhaler [Ventolin Hfa] 2 puff INHALATION Q4H PRN PRN 04/19/16 Clopidogrel Bisulfate [Plavix] 75 mg PO DAILY 04/19/16 Budesonide/Formoterol 160/4.5 [Symbicort 160/4.5 Mcg Inhaler (SP)] 2 puff INHALATION DAILY 07/14/16 Prednisone 10 mg PO UD #26 tab 03/31/17 Following Prescrptions Were Given to Patient: Prednisone 10 mg PO UD #26 tab Primary Care Physician: Mei Perez MD [Primary Care Provider] - Please follow up with your Primary Care Physician in: 2 weeks Please Follow Up With: Yong Calvillo DO When: as directed Please Follow Up With: Mei Perez MD Disposition: Home Minutes spent on discharge:: 35 Patient Condition:: Stable Meaningful Use Info Meaningful Use Diagnoses (Choose all that apply): None applicable 03/31/171812 <Electronically signed by Mati HOPE> Date Mati HOPE 03/31/171813<Electronically signed by Sushila Rivers > Cosigner Signature (if applicable): Date Sushila Rivers CC: JAYY Nieto; Sushila Rivers; Mei Perez MD Signed EMERGENCY DEPARTMENT Observed: 03/31/2017 Status: F Source: [place] SUMMARY 3:40 PM [facility] [facility] Medical Records Department [address] [place] [address] Emergency Department Summary 03/29/17 1533 MR#: [id number] Acct: [id number] Name: HAL CORLEY Rep #: [id number] : 1940 76 From: Doug Howell DO PCP: Mei Perez MD Status: DIS IN - ER Visit Summary Date of Service: 03/29/17 Chief Complaint: Shortness of breath History of Present Illness: The patient is a 76 M who states that since Thursday he has had a progressive shortness of breath/dyspnea on exertion. He notes cough with sputum production. He states he is having a COPD flare. No fevers. No vomiting or diarrhea. No body aches. No headache. No URI symptoms. She has a history of COPD and coronary artery disease having had a CABG in the year 1999. He has had no chest pain. No palpitations. Physical Examination: Temperature 95.2 heart rate 75 respirations are 26 pulse ox is 94% on room air blood pressure 84/59 Gen: Well-nourished well-developed Head: Normocephalic atraumatic Eyes: Perrl EOMI ENT: TMs clear no rhinorrhea moist mucous membranes Neck: Supple no lymphadenopathy no JVD nontender CVS: Regular rate rhythm no murmurs normal S1-S2 Respiratory: Tachypnea clear to auscultation bilaterally chest nontender Abdomen: Soft nontender nondistended normal bowel sounds no masses Back: Nontender Extremity: Nontender no edema Skin: Normal color no rash Neuro: alert orientated 3 CN II-XII intact normal strength sensation reflexes gait cerebellar Psych: Normal affect normal mood Test Results: CBC CMP with a creatinine 1.71. Lactic acid 2.6. EKG is sinus with a rate of 63. Chest x-ray negative. Emergency Department Course and Treatment: Patient is received IV fluids and his blood pressure is somewhat improved. Still tenuous. Shortly after his arrival in the emergency room he had diarrhea has not had any since. Plan is admission with continued IV fluids. After DuoNeb he is no longer short of breath. His lung sounds remain clear. I do not think he has pulmonary embolism. After 3 days he has never had any pain. I do not think that this is cardiac in nature. Impression: 1. Hypertension 2. Acute kidney injury 3. Elevated lactate This note was generated with [employer] dictation software. It may contain incorrect words, spelling, and punctuation that were not noted in review of the chart prior to signing ED Disposition - Plan for ED Patient: Disposition: Acute Care Hospital [facility] Chief Complaint: Shortness of Breath What to do if you have Problems For any increased pain, shortness of breath, bleeding, nausea or vomiting, chest pain, or any unexpected problems, contact your Primary Care Provider. Call [facility] ([phone]) or report to the closest Emergency Room. Call 911 if necessary. 03/31/17 1250 <Electronically signed by Doug Howell DO> Date Doug Howell DO [facility] Signature (If Indicated): Date CC: Mei Perez MD DISCHARGE INSTRUCTION Observed: 03/31/2017 Status: F Source: [place] 11:32 AM [facility] Medical Records Department [address] [place] [address] Instructions for Home/Discharge Instructions 03/31/17 1130 MR#: [id number] Acct: [id number] Name: HAL CORLEY Rep #: [id number] : 1940 76 From: Mati HOPE PCP: Mei Perez MD Status: ADM IN - Discharge Diagnoses Current Active Problems: Current Active and Chronic Problems Hypotension (Acute) Prostate CA (Chronic) COPD (chronic obstructive pulmonary disease) (Acute) Influenza B (Acute) You will use the following diet at home:: Cardiac Your food should be the consistency of: Regular Your liquids should be the consistency of: Regular/Thin Discharge Activity: Return to Normal Activity Allergies/Adverse Reactions: Allergies isosorbide [From Imdur] Allergy (Verified 03/29/17 10:51) Other Medications to take at Discharge Aspirin [Aspirin, Baby] 81 mg PO DAILY@0800 12/29/14 Atorvastatin Calcium [Lipitor] 20 mg PO QHS 12/29/14 Lisinopril 1 mg PO DAILY 12/29/14 Lorazepam [Ativan] 1 mg PO TID PRN PRN 12/29/14 Metoprolol Tartrate 25 mg PO 4X/DAY 12/29/14 Nitroglycerin [Nitrostat] 0.4 mg SL PRN PRN 12/29/14 Albuterol Inhaler [Ventolin Hfa] 2 puff INHALATION Q4H PRN PRN 04/19/16 Clopidogrel Bisulfate [Plavix] 75 mg PO DAILY 04/19/16 Budesonide/Formoterol 160/4.5 [Symbicort 160/4.5 Mcg Inhaler (SP)] 2 puff INHALATION DAILY 07/14/16 Prednisone 10 mg PO UD #26 tab 03/31/17 The following prescriptions were given: Prednisone 10 mg PO UD #26 tab Primary Care Physician: Mei Perez MD [Primary Care Provider] - Please follow up with your Primary Care Physician in: 2 weeks Please Follow Up With: Joshua Guadarrama MD - Keep your current April appointment with Dr. Guadarrama. When: as directed Proposed Discharge Date: 03/31/17 03/31/17 1132 <Electronically signed by Mati HOPE> Date Mati HOPE CC: Joshua Guadarrama MD; Mei Perez MD 12 LEAD ELECTROCARDIOGRAM Observed: 03/31/2017 Status: F Source: [place] 10:48 AM [facility] Cardiovascular Services [address] [place] [address] [place] [address] 12 Lead EKG 03/29/17 1112 MR#: [id number] Acct: [id number] Name: HAL CORLEY Bruno Rep #: [id number] : 1940 76 From: Albert Rodriguez MD Attending Dr: Sushila Rivers Status: ADM IN Ordering Dr: Doug Howell DO Date: 03/29/17 Location: [facility] Sex: M C Admitted: 03/29/17 Test Reason : SOB Blood Pressure : / mmHG Vent. Rate : 063 BPM Atrial Rate : 063 BPM P-R Int : 162 ms QRS Dur : 082 ms QT Int : 402 ms P-R-T Axes : 025 048 041 degrees QTc Int : 411 ms Sinus rhythm with Premature atrial complexes in a pattern of bigeminy Otherwise normal ECG Confirmed by MICHAEL SOTO, ALBERT ([id number]), editorial writer DIONICIO BOUDREAUX ([id number]) on 03/31/2017 10:47:41 AM Referred By: CALE Confirmed By:ALBERT RODRIGUEZ MD 03/31/17 1047 Date Albert Rodriguez MD CC: Mei Perez MD Signed CBC W/DIFF, AUTOMATED Collected: 03/31/2017 Status: F Source: [place] 5:40 AM [facility] TYPE CODE TESTS RESULT OUT OF RANGE REFERENCE UNITS LAB L100.1000 4.4-11.0 K/mm3 Low WBC 2.7 LAB L100.1200 4.6-6.2 M/mm3 Low RBC 4.08 LAB L100.1300 13.0-16.5 g/dl Low HGB 12.7 LAB L100.1400 40-54 % Low HCT 38.6 LAB L100.1500 80-94 fL High MCV 94.6 LAB L100.1600 27.0-32.0 pg Normal MCH 31.1 LAB L100.1700 32-36 g/gl Normal MCHC 32.9 LAB L100.1810 11.6-14.6 % Normal RDW CV 14.2 LAB L100.1820 35.1-43.9 fl High RDW SD 46.9 LAB L100.1900 150-450 K/mm3 Low PLT 143 LAB L100.2000 6.2-12.0 fl Normal MPV 9.2 LAB L100.2100 47-70 % High NEUT% 81.3 LAB L100.2200 19-41 % Low LY% 11.0 LAB L100.2300 0-10 % Normal MONO% 7.7 LAB L100.2400 0-5 % Normal EO% 0.0 LAB L100.2500 0-1 % Normal BASO% 0.0 LAB L100.2550 0.0-0.9 % Normal IM GRAN % 0.000 Result Comment: IG% - Immature Granulocytes (promyelocytes, myelocytes and metamyelocytes) > 1% indicates that a LEFT SHIFT is Present. LAB L100.2620 2.0-7.7 X10 3/uL Normal Absolute Neut 2.2 LAB L100.2720 0.83-4.51 X10 3/ul Low Absolute Lymph 0.30 Performed By: #### L100.0100 #### [facility] [address] [place], [address] BASIC METABOLIC Collected: 03/31/2017 Status: F Source: [place] PROFILE (BMP) 5:40 AM [facility] TYPE CODE TESTS RESULT OUT OF RANGE REFERENCE UNITS LAB L501.0100 70-110 mg/dL High GLU 147 Result Comment: Fasting Glucose result greater than or equal to 126 mg/dL suggests DIABETES MELLITUS per A.D.A. criteria. LAB L501.1000 7-18 mg/dL High BUN 25 LAB L501.1100 0.70-1.30 mg/dL Normal CREAT,SERUM 1.10 Result Comment: The validity of the calculated GFR AND GFRAA in patients over 70 years has not been determined. Clinical correlation is essential. LAB L501.1110 >60 mL/min Normal EST GFR 69 Result Comment: Non- GFR Calc LAB L501.1115 >60 mL/min Normal EST GFR - AA 84 Result Comment: GFR Calc LAB L501.1255 ml/min Normal Estimated CRCL 62.75 LAB L501.1300 10-20 RATIO High BUN/CRE 22.7 LAB L501.2200 8.5-10 mg/dL Low .1 CA 8.3 LAB L501.5300 136-14 mmol/L Normal 5 NA 140 LAB L501.5600 3.5-5. mmol/L Normal 1 K 3.7 LAB L501.5900 98-107 mmol/L Normal CL 107 LAB L501.6100 21.0-3 mmol/L Normal 2.0 CO2 24.0 LAB L501.6200 5-15 Normal GAP 9 Performed By: #### L500.2500 #### [facility] [address] [facility] [id number] STREP Observed: 03/31/2017 Status: F Source: [place] PNEUMONIAE ANTIG(UR,CSF) 3:15 AM [facility] S pneumo Ag URINE INTERPRETATION Negative Urine Presumptive negative for pneumococcal pneumonia, suggesting no current or recent pneumococcal infection. Infection due to S pneumoniae cannot be ruled out since the antigen present in the sample may be below the detection limit of the test. Strep pneumo Test Negative URINE (See interpretation below) Performed By: #### M300.4600 #### [facility] [address] [facility] [id number] Observed: 03/31/2017 Status: F Source: [place] LEGIONELLA ANTIGEN 3:15 AM [facility] [place] [facility] Legionella, UR Legionella Antigen result interpretation: Negative Presumptive negative for Legionella pneumophila serogroup 1 antigen in urine, suggesting no recent or current infection. Legionella Ag, Urine Negative (See interpretation below) Performed By: #### M300.4500 #### [facility] [address] [place], [address] CONSULTATION Observed: 03/30/2017 Status: F Source: [place] 12:33 PM [facility] Medical Records Department [address] [place] [address] Consultation 03/30/17 0833 MR#: [id number] Acct: [id number] Name: HAL CORLEY Rep #: [id number] : 1940 76 From: Karla BARRETO PCP: Mei Perez MD Status: ADM IN Y Location: [place] [address] ADDENDUM by Yong Calvillo D.O. on 03/30/17 at 1233 Code Visit The patient was seen and examined independently in conjunction with the nurse practitioner. All data was personally reviewed, including the note below, and I agree with the added comments. The patient is a 76-year-old male with a history of severe COPD, known to me from the outpatient pulmonary medicine clinic, who presented to the emergency department with worsening shortness of breath. The patient has a baseline 2 L/min supplemental oxygen requirement at night, but does not routinely utilize oxygen throughout the day. On presentation to the emergency department, the patient was initially found to be somewhat hypotensive with blood pressures in the 70s systolic. However, following IV fluid resuscitation, the patient's hemodynamics improved. The patient also had evidence of acute kidney injury with a creatinine of 1.71. This also improved following IV fluid resuscitation. Troponins were negative. Plain film chest x-ray showed no acute cardiopulmonary process. Infectious workup revealed the patient to be positive for influenza B. The patient's most recent lab work, culture data and imaging studies have all been personally reviewed. I agree with the physical examination as documented below. The patient is alert, appropriately interactive and resting comfortably in bed. His lung rebolledo are diminished bilaterally with a faint end expiratory wheeze noted. His heart is regular without murmurs, rubs or gallops appreciated. There is no clubbing, cyanosis or edema present. IMPRESSION/PLAN: 1. Acute hypoxic respiratory insufficiency secondary to COPD exacerbation due to influenza B Continue current supportive measures. Continue scheduled aerosol regimen and IV steroids for now. Given that there was no evidence of an active infiltrate identified on chest x-ray, antibiotics can likely be discontinued. Tamiflu is likely to be of little benefit to the patient, given the time that has elapsed since his symptoms initially began. Wean supplemental oxygen to maintain saturations at or above 90%. Encourage incentive spirometer use and mobilize patient as tolerated. He will require a walking oximetry study prior to consideration for discharge from the hospital. The patient does have an upcoming follow-up appointment with me in the pulmonary medicine clinic in April. 2. Nocturnal hypoxemia Continue 2 L/min on a nightly basis. 3. Fluid responsive hypotension/acute kidney injury Resolved at this time. Secondary to intravascular volume depletion. Inpatient E AND M: [id number] Init Hosp L2 03/30/17 1233 <Electronically signed by Yong Calvillo DO> Date Yong Calvillo DO cc: Joshua Guadarrama MD; Mei Perez MD * Signed Problem List (1) COPD (chronic obstructive pulmonary disease) Status: Acute Qualifiers: COPD type: COPD with acute exacerbation Qualified Code(s): J44.1 - Chronic obstructive pulmonary disease with (acute) exacerbation (2) Influenza B Status: Acute (3) Benign essential HTN Status: Chronic (4) HLD (hyperlipidemia) Status: Chronic Qualifiers: Hyperlipidemia type: unspecified Qualified Code(s): E78.5 - Hyperlipidemia, unspecified (5) CAD (coronary artery disease) Status: Chronic Qualifiers: Associated angina: angina presence unspecified (6) Hypotension Status: Acute Qualifiers: Hypotension type: unspecified hypotension type Qualified Code(s): I95.9 - Hypotension, unspecified (7) Prostate CA Status: Chronic Reason for Consult Date of Consultation: 03/30/17 Reason for Consultation: hypotension History of Present Illness: The patient is a 76 year old M with past medical history as below and known to pulmonary clinic who presented to the emergency room at the request of Urgent Care with complaints of increased dyspnea on exertion and cough/congestion for the last 3-4 days. He wears chronic 2 L liters of oxygen at night, does use as needed throughout the day only when he is sick. Patient reports his symptoms and on Thursday evening with shaking chills. He denied any fevers, nausea, or vomiting. He has not had any nasal or sinus congestion or drainage from his nose. Patient reports explosive diarrhea all throughout yesterday, none since arrival. She thought maybe the diarrhea was due to taking too many OTC cold and cough medications. Patient hypotensive on arrival with a blood pressure 78/55, pulse 89, RR 16, temp 95.2 F per temporal artery, 94% on room air. Chest x-ray showed calcified plaques of the aortic arch, no acute cardiopulmonary disease process. Patient did later get somewhat hypoxic and was placed on 2 L of oxygen with good recovery of his saturations. The patient was given several liters of IV fluids with improvement in his blood pressure. Initial lab work showed normal white count of 5.5, hemoglobin 13.6, elevated neutrophils 84% and lymphocytes 5.9%. Coags were normal. Also had acute kidney injury with a BUN of 19 and creatinine 1.71, glucose 138, lactate elevated at 2.6 and repeat normal at 1.5. LFTs were normal. Cardiac enzymes have been negative. Urinalysis negative for infection, showed small amount of blood. Urine was sent for culture. Stool sent for C. difficile, which was negative. O AND P and enteric panel are pending. Blood cultures are pending. Respiratory panel positive for influenza B. The patient was admitted to the progressive care unit for further management. He remains on 2 L of oxygen saturating at 94%. His blood pressure is improved to 138/84. He denies any significant dyspnea on exertion. Pulmonary function tests on 03/25/17 and irreversible severe large airways obstructive ventilatory defect with symmetric reduction in diffusing capacity, noted improvement compared to previous testing on 06/11/16 with significant improvement in DLCO and FEV1. Pulmonary exercise test was also performed on 03/25/17 and showed some desaturations from 98% to as low as 93%, with no significant tachycardia. There is limitation to distance secondary to hip pain, he was able to ambulate 984 feet over the course of 6 minutes on room air with no assistive devices. Patient also participated in pulmonary rehab over the summer. Patient quit smoking about 17 years ago. 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 He has been compliant with his Symbicort at home and has been using albuterol nebulizers for the past few days with some improvement in his SOB. He denies any recent sick contacts and notes he takes precaution with avoiding people in public. He works out at the [employer] and sanitizes equipment before and after he uses it. His states he is always worried about getting sick. Past Medical History Past Medical History (Chronic Problems): Chronic Problems Benign essential HTN (Chronic) HLD (hyperlipidemia) (Chronic) CAD (coronary artery disease) (Chronic) Prostate CA (Chronic) Allergies isosorbide [From Imdur] Allergy (Verified 03/29/17 10:51) Other Home Medications: Ambulatory Orders Medication Instructions Recorded Surgical History: cataract, coronary bypass surgery Psychiatric History: No pertinent psych hx Lives: Spouse/ Significant Other Smoking Status: Former smoker Tobacco Use: Non-smoker Alcohol: None Drugs: None - *Family History Maternal History Items: Diabetes Review of Systems Constitutional: Reports: Anorexia, Chills, Weakness, Weight Change - gain from prostate CA treatment, Fatigue. Denies: Fever, Night Sweats, Malaise Eyes: Denies: Vision Change HEENT: Reports: Post Nasal Drip. Denies: Difficulty Swallowing, Head Aches, Nasal bleeding, Nasal Congestion, Sinus Congestion, Sinus Drainage, Sore Throat Cardiovascular: Reports: Light Headedness - resolved. Denies: Chest Pain, Chest Tightness, Edema, Orthopnea, Palpitations, Paroxysmal Noc. Dyspnea, Syncope Respiratory: Reports: Cough, Shortness of breath upon exertion, Sputum production - white to yellow, Wheezing - occasional. Denies: Hemoptysis, Shortness of breath at rest Gastrointestinal: Reports: Diarrhea - resolved yesterday. Denies: Abdominal Pain, Constipation, Dyspepsia, Hematemesis, Hematochezia, Nausea, Melena, Vomiting Genitourinary: Reports: Frequency, Nocturia. Denies: Dysuria, Hematuria Musculoskeletal: Denies: Back Pain, Muscle pain, Neck Pain Skin: Denies: Pruritis, Rash, Wounds Neurological: Denies: Balance problems, Change in Speech, Confusion, Focal weakness, Numbness, Tingling, Tremor, Seizures Psychiatric: Denies: Anxiety, Depression, Suicidal Ideations Endocrine: Denies: Change in Body Habitus, Polydipsia, Polyuria Hematologic/ Lymphatic: Reports: Easy Bruising. Denies: Adenopathy, Anemia, Easy Bleeding, Hx of blood clot Patient Problems: Active and Suspected Problems Hypotension (Acute) COPD (chronic obstructive pulmonary disease) (Acute) Influenza B (Acute) Subjective: The patient was seen and examined, at bedside. Denies any current shortness of breath. His cough has significantly improved as well as his dyspnea on exertion. Patient has been receiving Solu-Medrol and antibiotics. He is saturating at 94% on 2 L. Reports his dizziness has resolved. He remains afebrile and hemodynamically stable. Respiratory panel just resulted for positive influenza B. Awaiting further infectious workup. Objective: Clinical Impression(s) from Imaging Studies Chest X-Ray 03/29/17 11:08 IMPRESSION: Status post sternotomy. Calcified plaques of the aortic arch. No acute cardiopulmonary disease process is seen. There has been complete interval resolution of the right lower lobe infiltrate noted on the previous study. Electronically Signed: Abrahan Graham MD at 12:47 EST , Service support , - Physical Exam General: Alert, Oriented x3, Cooperative, No apparent distress, Well developed, Well nourished HEENT: Atraumatic, Normocephalic Oral: Moist Mucosa, No Gingival or Mucosal Lesions/ Ulcerations Neck: Supple, No Nodes, Trachea Midline Lungs: - - diminished throughout, no appreciable rhonchi, wheezes, or rales. Cardiovascular: Regular rate, Regular Rhythm, Normal S1, Normal S2, No murmurs, No rub noted, No Gallop Abdomen: Bowel Sounds Present, Soft, Non Tender, Non-Distended, Obese Extremities: No clubbing, No cyanosis, No edema, Capillary Refill Less than 3 Seconds, No Calf Tenderness Skin: No rashes, No breakdown Musculoskeletal: No Tenderness to Palpation of Joints or Extremities Lymphatic: No Cervical, Supraclavicular, or Inguinal Adenopathy Neurological: Cranial nerves II-XII grossly intact, Neuro grossly intact, Motor Exam 5/5 strength throughout Psych/Mental Status: Alert and oriented to time, place, person, mood and affect Vital Signs Temp Pulse Resp BP Pulse Ox 98.7 F 85 22 H 93/62 95 03/30/17 03:05 03/30/17 06:55 03/30/17 06:38 03/30/17 03:05 03/30/17 06:38 Oxygen Flow Rate 2.5 Oxygen Delivery Method Nasal Cannula Weight: 210 lb 12.191 oz Body Mass Index (BMI) 29.0 Intake and Output for Last 24 Hours Intake Total 378 / 378 1036 / 1036 Balance 378 / 378 1036 / 1036 Microbiology Past 72 Hours 03/29/17 16:05 C. difficile DNA Amplification - Final Stool 03/29/17 16:05 Stool Lactoferrin - Final Stool Laboratory Tests Past 24 Hrs WBC RBC Hgb Hct MCV MCH MCHC RDW RDW Differential Plt Count WBC 2.4 L RBC 3.77 L Hgb 11.8 L Hct 36.0 L MCV 95.5 H MCH 31.3 WBC RBC Hgb Hct MCV MCH MCHC RDW RDW Differential Assessment/Plan Active and Suspected Problems Hypotension (Acute) COPD (chronic obstructive pulmonary disease) (Acute) Influenza B (Acute) RECOMMENDATIONS 1. Wean oxygen supplementation to keep saturations greater than 89%. 2. Encourage incentive spirometer 3. Increase activity as tolerated 4. Continue Duoneb aerosols 5. Await infectious workup, discontinue antibiotics if negative 6. Ambulatory pulse ox prior to discharge 7. Follow-up in the pulmonary clinic in 2 weeks with TYPING TEACHER upon discharge IMPRESSIONS 1. 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 Likely COPD exacerbation secondary to influenza, his wheezing and shortness of breath on exertion have improved with IV Solu-Medrol Steroids can likely be transitioned to oral in the morning. Continue antibiotics for now pending infectious workup, otherwise if negative can discontinue. 2. Hypotension Resolved with IV fluid resuscitation. He was orthostatic positive on admission. His blood pressure medications are being held, slowly reintroduce. 3. Chronic respiratory failure Baseline supplemental oxygen requirements of 2 L at night only. Had a recent 6 minute walking oximetry with no significant desaturations. Has been using as needed throughout the day for the last couple of days since he has been feeling ill. May require home oxygen during the day while acutely ill, patient should have a walking oximetry prior to discharge to assess for exertional hypoxia. He can follow-up in the pulmonary clinic in 2 weeks with the nurse practitioner. Thank you for the opportunity to participate in this patient's care, please do not hesitate to contact us with any further questions or concerns. This note was generated with [employer] software. It may contain incorrect words, spelling, and punctuation that were not noted in checking the note before signing. 03/30/17 1145 <Electronically signed by Karla BARRETO> Date Karla BARRETO Cosigner Signature (if applicable): Date CC: Joshua Guadarrama MD; Mei Perez MD Signed CBC-COMPLETE BLOOD CNT Collected: 03/30/2017 Status: F Source: [place] NO DIFF 1:50 AM [facility] TYPE CODE TESTS RESULT OUT OF RANGE REFERENCE UNITS LAB L100.1000 4.4-11.0 K/mm3 Low WBC 2.4 LAB L100.1200 4.6-6.2 M/mm3 Low RBC 3.77 LAB L100.1300 13.0-16.5 g/dl Low HGB 11.8 LAB L100.1400 40-54 % Low HCT 36.0 LAB L100.1500 80-94 fL High MCV 95.5 LAB L100.1600 27.0-32.0 pg Normal MCH 31.3 LAB L100.1700 32-36 g/gl Normal MCHC 32.8 LAB L100.1810 11.6-14.6 % High RDW CV 14.8 LAB L100.1820 35.1-43.9 fl High RDW SD 49.3 LAB L100.1900 150-450 K/mm3 Low PLT 117 LAB L100.2000 6.2-12.0 fl Normal MPV 8.6 Performed By: #### L100.0500 #### [facility] [address] [place], [place], [address] BASIC METABOLIC Collected: 03/30/2017 Status: F Source: [place] PROFILE (BMP) 1:50 AM [facility] TYPE CODE TESTS RESULT OUT OF RANGE REFERENCE UNITS LAB L501.0100 70-110 mg/dL High GLU 155 Result Comment: Fasting Glucose result greater than or equal to 126 mg/dL suggests DIABETES MELLITUS per A.D.A. criteria. LAB L501.1000 7-18 mg/dL Normal BUN 18 LAB L501.1100 0.70-1.30 mg/dL Normal CREAT,SERUM 1.14 Result Comment: The validity of the calculated GFR AND GFRAA in patients over 70 years has not been determined. Clinical correlation is essential. LAB L501.1110 >60 mL/min Normal EST GFR 67 Result Comment: Non- GFR Calc LAB L501.1115 >60 mL/min Normal EST GFR - AA 81 Result Comment: GFR Calc LAB L501.1255 ml/min Normal Estimated CRCL 60.55 LAB L501.1300 10-20 RATIO Normal BUN/CRE 15.8 LAB L501.2200 8.5-10 mg/dL Low .1 CA 7.6 LAB L501.5300 136-14 mmol/L Normal 5 NA 141 LAB L501.5600 3.5-5. mmol/L Normal 1 K 4.0 LAB L501.5900 98-107 mmol/L High CL 110 LAB L501.6100 21.0-3 mmol/L Normal 2.0 CO2 22.0 LAB L501.6200 5-15 Normal GAP 9 Performed By: #### L500.2500 #### [facility] [address] [place], [place], [address] TROPONIN-I Collected: 03/30/2017 Status: F Source: [place] 1:50 AM [facility] Order Comment: 'TROP' Serial specimen #1, #2, #3, or #4: 4 TYPE CODE TESTS RESULT OUT OF RANGE REFERENCE UNITS LAB L501.4010 <0.06 ng/mL Normal < 0.02 TROPONIN-I Result Comment: TROPONIN-I EXPECTED VALUES <0.05 NEGATIVE 0.06 - 0.59 AT RISK OF PR > OR = 0.60 SUGGEST PR Performed By: #### L501.4010 #### [facility] [address] [place], [address] TROPONIN-I Collected: 03/29/2017 Status: F Source: [place] 7:24 PM [facility] Order Comment: 'TROP' Serial specimen #1, #2, #3, or #4: 3 TYPE CODE TESTS RESULT OUT OF RANGE REFERENCE UNITS LAB L501.4010 <0.06 ng/mL Normal < 0.02 TROPONIN-I Result Comment: TROPONIN-I EXPECTED VALUES <0.05 NEGATIVE 0.06 - 0.59 AT RISK OF PR > OR = 0.60 SUGGEST PR Performed By: #### L501.4010 #### [facility] [address] [place], [address] URINALYSIS, COMPLETE Collected: 03/29/2017 Status: F Source: [place] 4:05 PM [facility] Order Comment: Order Date: 03/29/17 How was Urine Obtained? ACCOUNT ENGINEER TO SPECIFY TYPE CODE TESTS RESULT OUT OF RANGE REFERENCE UNITS LAB L400.3000 Yellow COLOR Normal Yellow LAB L400.3050 Clear Normal CLARITY Clear LAB L400.3200 Normal mg/dl Normal GLUCOSE, UR Normal LAB L400.3300 Negative mg/dL Normal BILIRUBIN URINE Negative LAB L400.3400 Negative mg/dl Normal KETONE UR Negative LAB L400.3465 1.002-1.030 Normal SP.GR. DIPSTX 1.020 LAB L400.3550 5.0 - 8.0 pH UR Normal 6.0 LAB L400.3600 Negative mg/dl High PROT 30 DIPSTX LAB L400.3700 Normal mg/dl Normal UROBILI Normal LAB L400.3750 Negative Normal NITRITE UR Negative LAB L400.3780 Negative /ul High 25 OCCULT BLOOD-UR LAB L400.3800 Negative /ul LEUK Normal ESTERASE Negative LAB L400.4050 0-5 /hpf WBC Normal 0-5 SEEN LAB L400.4100 0-5 /hpf Normal RBC-UA 0-5 SEEN LAB L400.4150 0-5 /hpf SQUAM Normal EPI 0-5 SEEN LAB L400.4300 None Seen /hpf 0 Normal BACTERIA SEEN LAB L400.4350 <or=2+ /hpf 0 Normal MUCUS, URINE SEEN LAB L400.4400 0-5 /lpf Normal HYALINE CAST 10-25 SEEN Performed By: #### L400.0001 #### [facility] [address] [facility] [place], [place], [address] STOOL Observed: 03/29/2017 Status: F Source: [place] LACTOFERRIN/WBC 4:05 [facility] REPOSITORY Order Date: 03/29/17 Stool Lacto/WBC Normal Reference Range = Negative Fecal WBC Lactoferrin Negative: No Fecal WBC Lactoferrin present Performed By: #### M100.0605 #### [facility] [address] [place] [address]. [place], [place], [address] Observed: 03/29/2017 Status: F Source: [place] CDIFF (MOLECULAR) 4:05 [facility] REPOSITORY Order Date: 03/29/17 Cdiff-Molecular Normal Reference Range = Negative C. Diff DNA Negative- No toxigenic C. Diff DNA Detected NAAT METHOD Testing was performed using nucleic acid amplification Performed By: #### M100.6796 #### [facility] [address] [place] [address]. [place], [address] Observed: 03/29/2017 Status: F Source: [place] CULTURE, URINE 4:05 [facility] REPOSITORY Order Date: 03/29/17 Urine Culture Culture exhibits no growth. Performed By: #### M100.0650 #### [facility] [address] [place] [address]. [place], [address] Observed: 03/29/2017 Status: F Source: [place] ENTERIC PATHOGEN 4:05 [facility] PANEL STOOL REPOSITORY Order Date: 03/29/17 EP PANEL STOOL Normal Reference Range = Not Detected Not detected for Campylobacter group, Salmonella species, Shigella species, Vibrio Group, Yersinia enterocolitica, EHEC (Shiga Toxin 1, Shiga Toxin 2), Norovirus Gl/Gll, and Rotavirus A. Other common stool pathogens are not detected on this panel include: Aeromonas/Plesiomonas or parasites. Order testing for these organisms separately if suspected. This is an amplified DNA test which makes it both specific and sensitive. CAMPYLOBACTER Not Detected Salmonella Not Detected Shigella sp. Not Detected Shiga Toxin Not Detected Yersinia Not Detected VIBRIO Not Detected Norovirus Not Detected Rotavirus Not Detected Performed By: #### M100.637 #### [facility] [address] [place] [address]. [place], [address] Observed: 03/29/2017 Status: F Source: [place] OVA AND PARASITES 8623 4:05 PM [facility] Order Date: 03/29/17 O + P 8623 OVA AND PARASITES EXAM, ROUTINE These results were obtained using wet preparation(s) and trichrome stained smear. This test does not include testing for Crytosporidium parvum, Cyclospora, or Microsporidia. TESTING PERFORMED AT [facility]. ORIGINAL REPORT ON FILE IN LAB CONTAINS ADDITIONAL TEST SITE INFORMATION. Ova/Parasite Exam NO OVA, CYSTS, OR PARASITES FOUND. Performed By: #### M600.5000 #### [facility] [address] [place] [address]. [place], [address] LACTIC ACID Collected: 03/29/2017 Status: F Source: [place] 3:50 PM [facility] TYPE CODE TESTS RESULT OUT OF RANGE REFERENCE UNITS LAB L503.6005 0.4-2.0 mmol/L Normal LACTIC ACID 1.5 Performed By: #### L503.6005 #### [facility] [address] [place] [address]. [place], [address] Observed: 03/29/2017 Status: F Source: [place] RESPIRATORY PANEL 3:15 PM [facility] RE[facility] RP PANEL Normal Reference Range = Not Detected RESULTS CALLED TO GILMAR WILLS 03/30/17 Berta3 Michelle Ca. REPORT READ BACK BY SAME. Copy of report sent to Infection Control Printer [id number] 03/30/17 1014 TORRIE. ADENOVIRUS Not Detected HUMAN METAPHNEUMO Not Detected INFLUENZA A Not Detected INFLUENZA A (SUBTYPE H1) Not Detected INFLUENZA A (SUBTYPE H3) Not Detected INFLUENZA B Positive for INFLUENZA B by NAAT technology PARAINFLUENZA 1 Not Detected PARAINFLUENZA 2 Not Detected PARAINFLUENZA 3 Not Detected PARAINFLUENZA 4 Not Detected RHINOVIRUS Not Detected RSV A Not Detected RSV B Not Detected NAAT METHOD Testing was performed using nucleic acid amplification ORGANISM 1: INFLUENZAE B Performed By: #### M100.638 #### [facility] [address] [facility] [place], [address] HISTORY AND PHYSICAL Observed: 03/29/2017 Status: F Source: [place] EXAM 3:03 PM [facility] Medical Records Department [address] [place] [address] History and Physical 03/29/17 1404 MR#: [id number] Acct: [id number] Name: HAL CORLEY Rep #: [id number] : 1940 76 From: [place] Saldivar MD PCP: Maria G SOTO,Mei Status: ADM IN Y Location: [place] [address] Problem List (1) Hypotension Status: Acute Qualifiers: Hypotension type: unspecified hypotension type Qualified Code(s): I95.9 - Hypotension, unspecified (2) Benign essential HTN Status: Chronic (3) CAD (coronary artery disease) Status: Chronic Qualifiers: Associated angina: angina presence unspecified (4) HLD (hyperlipidemia) Status: Chronic Qualifiers: Hyperlipidemia type: unspecified Qualified Code(s): E78.5 - Hyperlipidemia, unspecified (5) Prostate CA Status: Chronic History of Present Illness Date of Admission: 03/29/17 Chief Complaint: Shortness of breath, cough The patient is a 76 year old M with PMHx of prostate Ca on immunotherapy, hypertension, CAD s/p CABG, COPD on 2L nocturnal oxygen comes in with complains of shortness of breath and cough ongoing for 3 days. Patient has been on some flu medications that he bought [id number]. He admits to feeling short of breath with exertion, denies any chest pain or dizziness or palpitations or fever but has chills. Denies any dysuria or frequency or rash. In the ED, patient's vitals show temperature of 95.2, blood pressure was 78/55 respiratory rate was 16, SPO2 was 94% on room air. He later on required 2 L of nasal cannula oxygen. at time of being examined, blood pressure was 112/59, he had received 3 L of fluid. Laboratory investigations show a CBC with WBC count of 5.5, Hb 13.6, platelets 153, sodium 140, potassium 4.0, chloride 106, bicarbonate 23, creatinine 1.71 in a patient with normal creatinine, BUN of 19. Chest x-ray showed no acute cardiopulmonary disease process. Past Medical History Past Medical History (Chronic Problems): Chronic Problems Benign essential HTN (Chronic) HLD (hyperlipidemia) (Chronic) CAD (coronary artery disease) (Chronic) Prostate CA (Chronic) Allergies isosorbide [From Imdur] Allergy (Verified 03/29/17 10:51) Other Home Medications: Ambulatory Orders Medication Instructions Recorded Surgical History: cataract, coronary bypass surgery Psychiatric History: No pertinent psych hx Lives: Spouse/ Significant Other Smoking Status: Former smoker Tobacco Use: Non-smoker Alcohol: None Drugs: None - *Family History Maternal History Items: Diabetes Review of Systems Constitutional: Reports: Chills, Weakness. Denies: Fever, Night Sweats, Weight Change Eyes: Denies: Blurred vision, Cataracts, Conjunctivae Inflammation, Double vision HEENT: Denies: Difficulty Hearing, Difficulty Swallowing, Head Aches, Hearing Changes, Nasal bleeding, Sinus Drainage, Sore Throat Cardiovascular: Denies: Chest Pain, Claudication, Chest Pressure, Orthopnea, Palpitations, Paroxysmal Noc. Dyspnea Respiratory: Denies: Cough, Hemoptysis, Pleuritic Pain, Shortness of breath upon exertion, Sputum production Gastrointestinal: Reports: Diarrhea - one episode in the ED. Denies: Abdominal Pain, Constipation, Hematemesis, Hematochezia, Vomiting Genitourinary: Denies: Dysuria, Frequency, Hematuria Musculoskeletal: Denies: Joint stiffness, Joint swelling, Joint Tenderness Skin: Denies: Dryness Neurological: Denies: Difficulty swallowing, Focal weakness Psychiatric: Denies: Anxiety, Depression Endocrine: Denies: Change in Body Habitus, Heat/ Cold Intolerance VTE Information - Inpt Only VTE Present on Admission: No VTE Pharm Prophylaxis ordered?: Yes Patient Problems: Active and Suspected Problems Hypotension (Acute) - Physical Exam General: Alert, Oriented x3, Cooperative, - - Obese, comfortable, lying flat HEENT: Atraumatic, PERRLA, EOMI, Normocephalic Oral: Dry Mucosa Neck: Supple Lungs: Normal air movement, Diminished, - - Barrell-shaped chest, No wheezes heard Cardiovascular: Regular rate, Regular Rhythm, Normal S1, Normal S2, No murmurs Abdomen: Bowel Sounds Present, Soft, Non Tender, Non-Distended, No Hepato-splenomegaly Extremities: No edema Skin: No rashes, No breakdown Musculoskeletal: No Tenderness to Palpation of Joints or Extremities Neurological: Cranial nerves II-XII grossly intact Psych/Mental Status: Normal Affect, Appropriate Vital Signs Temp Pulse Resp BP Pulse Ox 96.2 F L 76 18 97/67 97 03/29/17 12:46 03/29/17 14:00 03/29/17 14:00 03/29/17 14:00 03/29/17 14:00 Oxygen Flow Rate 2 Oxygen Delivery Method Room Air Weight: 93.894 kg Body Mass Index (BMI) 28.8 Laboratory Tests Past 24 Hrs WBC 5.5 RBC 4.45 L WBC Assessment/Plan Active and Suspected Problems Hypotension (Acute) 6 year old M with PMHx of prostate Ca on immunotherapy, hypertension, CAD s/p CABG, COPD on 2L nocturnal oxygen comes in with complains of shortness of breath and cough ongoing for 3 days. Vitals in the ED show blood pressure of 78/55, responsive to IV fluids. Patient denies any diarrhea or vomiting but has had one episode of diarrhea in the ED. 1. Shock, unclear etiology, likely related to dehydration, patient admitted to the ED with blood pressure 78/55, asymptomatic, improved to more than 110 with IV fluids, lactic acid is 2.6, no sirs criteria, unclear source of infection, EKG shows no acute ST-T changes, Plan: Admit to PCU, continue on IV fluids, monitor strict I's and O's, hold home blood pressure medications, continue to evaluate on telemetry, trend troponins, blood cultures pending 2. Acute COPD exacerbation, in a patient with known COPD on 2 L nocturnal oxygen, chest x-ray was negative for any acute cardiopulmonary process would start patient on breathing treatments with IV steroids and also ceftriaxone and azithromycin, will de-escalate antibiotics and patient continues to improve Influenza screen as well as respiratory panel screen. 3. Hypertension now hypotensive, will hold home blood pressure medication( Lisinopril, metoprolol), will continue to monitor and resume blood pressure medications when blood pressure improves 4. CAD status post CABG 17 years ago, on aspirin, statin, Plavix, lisinopril, follows with Dr. Canales in the outpatient 5. Anxiety disorder, on Lorazepam tid 6. Prostate cancer, on immunotherapy, following up with oncology in the outpatient, [facility] 7. DVT prophylaxis with heparin subcu 8. 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 PREVIOUS SPECIMEN REJECTED DUE TO HEMOLYSIS. 03/29/17 Parviz Bartlett. TYPE CODE TESTS RESULT OUT OF RANGE REFERENCE UNITS LAB L300.4150 11.7-14.9 SECONDS Normal PROTIME 14.0 LAB L300.4200 Normal INR 1.1 Performed By: #### L300.3900, L300.4310 #### [facility] [address] [place], [address] PARTIAL THROMBOPLAST Collected: 03/29/2017 Status: F Source: [place] TIME 12:45 PM [facility] Order Comment: REDRAW. PREVIOUS SPECIMEN REJECTED DUE TO HEMOLYSIS. 03/29/17 Parviz Bartlett. TYPE CODE TESTS RESULT OUT OF RANGE REFERENCE UNITS LAB L300.4310 24.1-36.2 Seconds Normal PTT 32.1 Performed By: #### L300.3900, L300.4310 #### [facility] [address] [place], [address] Observed: 03/29/2017 Status: F Source: [place] CULTURE, BLOOD (WB) 11:47 AM [facility] BC No growth in 5 days. Performed By: #### M200.1000 #### [facility] [address] [place], [address] CBC W/DIFF, AUTOMATED Collected: 03/29/2017 Status: F Source: [place] 11:30 AM [facility] TYPE CODE TESTS RESULT OUT OF RANGE REFERENCE UNITS LAB L100.1000 4.4-11.0 K/mm3 Normal WBC 5.5 LAB L100.1200 4.6-6.2 M/mm3 Low RBC 4.45 LAB L100.1300 13.0-16.5 g/dl Normal HGB 13.6 LAB L100.1400 40-54 % Normal HCT 42.2 LAB L100.1500 80-94 fL High MCV 94.8 LAB L100.1600 27.0-32.0 pg Normal MCH 30.6 LAB L100.1700 32-36 g/gl Normal MCHC 32.2 LAB L100.1810 11.6-14.6 % High RDW CV 14.8 LAB L100.1820 35.1-43.9 fl High RDW SD 51.7 LAB L100.1900 150-450 K/mm3 Normal PLT 153 LAB L100.2000 6.2-12.0 fl Normal MPV 8.9 LAB L100.2100 47-70 % High NEUT% 84.2 LAB L100.2200 19-41 % Low LY% 5.9 LAB L100.2300 0-10 % Normal MONO% 9.5 LAB L100.2400 0-5 % Normal EO% 0.0 LAB L100.2500 0-1 % Normal BASO% 0.2 LAB L100.2550 0.0-0.9 % Normal IM GRAN % 0.200 Result Comment: IG% - Immature Granulocytes (promyelocytes, myelocytes and metamyelocytes) > 1% indicates that a LEFT SHIFT is Present. LAB L100.2620 2.0-7.7 X10 3/uL Normal Absolute Neut 4.6 LAB L100.2720 0.83-4.51 X10 3/ul Low Absolute Lymph 0.32 LAB L100.4500 Normal SMEAR COMMENT SCANNED Performed By: #### L100.0100 #### [facility] [address] [place], [address] COMPREHENSIVE METABOLIC Collected: 03/29/2017 Status: F [facility] TYPE CODE TESTS RESULT OUT OF RANGE REFERENCE UNITS LAB L501.0100 70-110 mg/dL High GLU 138 Result Comment: Fasting Glucose result greater than or equal to 126 mg/dL suggests DIABETES MELLITUS per A.D.A. criteria. LAB L501.1000 7-18 mg/dL High BUN 19 LAB L501.1100 0.70-1.30 mg/dL High CREAT,SERUM 1.71 Result Comment: The validity of the calculated GFR AND GFRAA in patients over 70 years has not been determined. Clinical correlation is essential. LAB L501.1110 >60 mL/min Low EST GFR 42 Result Comment: Non- GFR Calc LAB L501.1115 >60 mL/min Low EST GFR - AA 51 Result Comment: GFR Calc LAB L501.1255 ml/min Normal Estimated CRCL 40.37 LAB L501.1300 10-20 RATIO Normal BUN/CRE 11.1 LAB L501.1500 6.4-8. g/dL Normal 2 T PROT 7.1 LAB L501.1800 3.4-5. g/dL Normal 0 ALB 3.8 Result Comment: Please note revised Albumin AND Globulin reference range effective 2016. LAB L501.1950 2.2-4.2 g/dL Normal GLOB 3.3 LAB L501.2000 0.9-2.4 RATIO Normal A/G 1.2 LAB L501.2200 8.5-10.1 mg/dL Normal CA 8.7 LAB L501.4100 15-37 U/L Normal AST 31 Result Comment: Slight Hemolysis, Result may be falsely increased. LAB L501.4305 45-117 U/L Normal ALK P 73 LAB L501.4405 12-78 U/L Normal ALT 33 LAB L501.4600 0.20-1.00 mg/dL Normal T BILI 0.50 LAB L501.5300 136-145 mmol/L Normal NA 140 LAB L501.5600 3.5-5.1 mmol/L Normal K 4.0 Result Comment: Slight Hemolysis, Result may be falsely increased. LAB L501.5900 98-107 mmol/L Normal CL 106 LAB L501.6100 21.0-32.0 mmol/L Normal CO2 23.0 LAB L501.6200 5-15 Normal GAP 11 Performed By: #### L500.4050 #### [facility] [address] [place], [place], [address] LACTIC ACID Collected: 03/29/2017 Status: F Source: [place] 11:30 AM [facility] Order Comment: Yes/No query for Sepsis Lactate Rule Y TYPE CODE TESTS RESULT OUT OF REFERENCE UNITS RANGE LAB L503.6005 0.4-2.0 mmol/L High LACTIC ACID 2.6 Result Comment: Critical Result(s) Called at: 12:03:35 03/29/2017 by: Jaqueline Eduardo Performed By: #### L503.6005 #### [facility] [address] [place], [place], [address] TROPONIN-I Collected: 03/29/2017 Status: F Source: [place] 11:30 AM [facility] Order Comment: 'TROP' Serial specimen #1, #2, #3, or #4: 1 TYPE CODE TESTS RESULT OUT OF RANGE REFERENCE UNITS LAB L501.4010 <0.06 ng/mL Normal < 0.02 TROPONIN-I Result Comment: TROPONIN-I EXPECTED VALUES <0.05 NEGATIVE 0.06 - 0.59 AT RISK OF PR > OR = 0.60 SUGGEST PR Performed By: #### L501.4010 #### [facility] [address] [place], [address] Observed: 03/29/2017 Status: F Source: [place] CULTURE, BLOOD (WB) 11:30 AM [facility] BC No growth in 5 days. Performed By: #### M200.1000 #### [facility] [address] [place], [address] CHEST 1 VIEW Observed: 03/29/2017 Status: F Source: [place] (PORTABLE) 11:10 AM [facility] Imaging Services [address] [place] [address] Chest 1 View (Portable) MR#: [id number] Acct: [id number] Name: HAL CROLEY Rep #: [id number] : 1940 M 76 From: Abrahan Graham MD PCP: Maria G SOTO,Mei Status: REG ER Study: Chest 1 View (Portable) Date of Exam: 03/29/17 Exam# [id number] Ordering Dr: Doug Howell DO STUDY: X-RAY CHEST REASON FOR EXAM: Male, 76 years old. Shortness of breath, COPD, status post CABG TECHNIQUE: Single AP portable view of the chest. COMPARISON: Previous study of 12/17/2016 FINDINGS: campus monitor leads are present. The lungs are clear and expanded. There is no demonstrated pleural abnormality. Normal size heart. Status post sternotomy changes are present. Normal mediastinum and pepito. Normal visualized pulmonary arteries. There are calcified plaques of the aortic arch. Normal visualized thoracic spine. Normal visualized ribs, clavicles, and shoulders. There is no demonstrated abnormality of the visualized soft tissue structures of the upper abdomen. RAD/Chest 1 View (Portable) IMPRESSION: Status post sternotomy. Calcified plaques of the aortic arch. No acute cardiopulmonary disease process is seen. There has been complete interval resolution of the right lower lobe infiltrate noted on the previous study. Electronically Signed: Abrahan Graham MD at 12:47 EST , Service support , CC: Doug Howell DO; Mei Perez MD Emergency Medical Services Coordinator: Signed PULMONARY FUNCTION Observed: 03/25/2017 Status: F Source: [place] REPORT COMP 5:05 PM [facility] Pulmonary Services/Neurology [address] [place] [address] MR#: [id number] Acct: [id number] Name: HAL CORLEY Rep #: [id number] : 1940 76 From: Joshua Guadarrama MD Referring Dr: Yong Calvillo D.O. Status: REG CLI Ordering Dr: Date: Location: [facility] Sex: M C COMPLETE PULMONARY FUNCTION TEST INTERPRETATION Brief HPI: Patient is a 76 year old male, currently under the care of Dr. Calvillo, who presents to [facility] for complete pulmonary function tests secondary to diagnosis of chronic respiratory failure. Respiratory therapist reports good effort and reproducible results. Interpretation: Forced expiration spirometry shows a severe large airways obstructive ventilatory defect with an FEV1 of 44 % predicted. There is no significant bronchodilator response by ATS criteria. Spirograms are of good quality and plateau slowly, indicating slowly emptying areas of the lungs. The respiratory flow volume loop shows decreased expiratory flow rates at all lung volumes consistent with airway obstruction. Lung volumes by body plethysmography show a normal total lung capacity at 7.07 L, 106 % predicted. All other lung volumes are within normal limits, but there is a trend towards air-trapping. Diffusion capacity by carbon monoxide is decreased at 43 % predicted. The airway resistance is elevated. Compared to previous pulmonary function tests from 06/11/2016, there has been a significant improvement in DLCO and FEV1. Impression: Irreversible severe large airways obstructive ventilatory defect with a symmetric reduction in diffusing capacity. There has been some improvement compared to previous testing. 03/25/171704 <Electronically signed by Joshua Guadarrama MD> Date Joshua Guadarrama MD CC: Joshua Guadarrama MD; Mei Perez MD Date Dictated: 03/25/171700 Date Transcribed: 03/25/171700 Emergency Medical Services Coordinator: LORA Signed 6 MINUTE WALK TEST Observed: 03/25/2017 Status: F Source: [place] 4:31 PM [facility] Pulmonary Services/Neurology [address] [place] [address] MR#: [id number] Acct: [id number] Name: HAL CORLEY Rep #: [id number] : 1940 76 From: Joshua Guadarrama MD Referring Dr: Yong Calvillo D.O. Date: Ordering Dr: Sex: M C Location: PSN PSN 6 Minute Walk Test - 6 Minute Walk Test 6 Minute Walk Test: 6 Minute Walk Test PSN:6-Minute Walk Test Start: 03/25/17 12:00 Freq: Status: Active Protocol: RESP.6MINW Document 03/25/17 12:01 [facility] (Rec: 03/25/17 12:06 [facility] [id number]) 6 Minute Walk Test Date Performed 03/25/17 Time Performed 11:30 Height 5 ft 11.28 in Weight: 94.055 kg Weight in Pounds 207.[address]: Yong Calvillo Assistive device used: None Pre-test Oxygen Delivery Method Room Air Pulse Ox (%) 97 Pulse Rate (60-100 beats/min) 66 Dyspnea Elvie Scale (0-10) 1 1st minute Oxygen Delivery Method Room Air Pulse Ox (%) 98 Pulse Rate (60-100 beats/min) 81 Dyspnea Elvie Scale (0-10) 2 Reported Symptoms Increased Work of Breathing 2nd minute Oxygen Delivery Method Room Air Pulse Ox (%) 94 Pulse Rate (60-100 beats/min) 84 Dyspnea Elvie Scale (0-10) 2 Reported Symptoms Increased Work of Breathing 3rd minute Oxygen Delivery Method Room Air Pulse Ox (%) 93 Pulse Rate (60-100 beats/min) 89 Dyspnea Elvie Scale (0-10) 3 Reported Symptoms Increased Work of Breathing 4th minute Oxygen Delivery Method Room Air Pulse Ox (%) 95 Pulse Rate (60-100 beats/min) 96 Dyspnea Elvie Scale (0-10) 3 Reported Symptoms Increased Work of Breathing 5th minute Oxygen Delivery Method Room Air Pulse Ox (%) 93 Pulse Rate (60-100 beats/min) 95 Dyspnea Elvie Scale (0-10) 3 Reported Symptoms Increased Work of Breathing 6th minute Oxygen Delivery Method Room Air Pulse Ox (%) 93 Pulse Rate (60-100 beats/min) 93 Dyspnea Elvie Scale (0-10) 5 Reported Symptoms Increased Work of Breathing Post-test Oxygen Delivery Method Room Air Pulse Ox (%) 97 Pulse Rate (60-100 beats/min) 67 Dyspnea Elvie Scale (0-10) 1 Full Laps Walked 16 Partial Lap, Number of Tiles Walked 40 Total Distance Walked (ft) 984 - Interpretation Interpretation: The patient was able to ambulate 984 feet over the course of 6 minutes on room air with no assistive devices. The patient did have some desaturation from 98% to as low as 93%, but no significant tachycardia was noted. Patient did report limitation and distance traveled secondary to hip pain. These findings are consistent with a musculoskeletal limitation exercise tolerance. - Recommendations Recommendations: No supplemental oxygen is indicated at this time. 03/25/171630 <Electronically signed by Joshua Guadarrama MD> Date Joshua Guadarrama MD CC: Date Dictated: 03/25/171629 Date Transcribed: 03/25/171629 Emergency Medical Services Coordinator: Joshua Guadarrama Signed ALLERGIES ALLERGIES DATE TYPE / CODE NAME / CODE REACTION SEVERITY SOURCE 03/03/2018 Drug isosorbide/[id number] Other-patient Unknown [place] Allergy/416 687(RXNORM) blacks out [facility] [address]170([facility] ED [facility]) Repository 03/14/2015 DRUG ISOSORBIDE HIVES [facility] INGREDI/419 MONONITRATE Other [place] [address]([facility] ED CT) [id number] ISOSORBIDE [place] [address]([facility]ository ENCOUNTERS ENCOUNTERS ADMIT/DISCHARGE ACCOUNT NUMBER ADMITTING ENCOUNTER LOCATION SOURCE CLASS 03/04/2018/03/05/19 [id number] Ambulatory [address] Main [place] Repository 03/04/2018 [id number] Ambulatory [facility] MEDICAL Repository CENTERBuildi ng:CAGWS 03/03/2018/03/03/19 [id number] Ambulatory BMSBuilding: [place] 19 BMS.[facility] Repository 03/03/2018 [id number] Ambulatory [facility] Hospital ding:LABSPEC Repository 02/16/[id number] [facility] ding:LAB Repository 01/08/2018/01/12/20 [id number] Ambulatory [address] Repository 01/06/2018/01/07/20 [id number] Ambulatory BMSBuilding: [place] 18 BMS.[facility] Repository 01/04/2018/01/05/20 [id number] Ambulatory [address] Repository 12/15/2017/12/16/19 [id number] Ambulatory BMSBuilding: [place] 18 BMS.[facility] Repository 12/09/[id number] [facility] ding:LABSPEC Repository 11/24/2017/11/25/19 [id number] Ambulatory BMSBuilding: [place] 18 BMS.[facility] Repository 10/16/2017/10/17/19 [id number] Ambulatory BMSBuilding: [place] 18 BMS.[facility] Repository 09/11/2017/09/12/19 [id number] Ambulatory BMSBuilding: [place] 18 BMS.[facility] Repository 09/01/2017/09/04/19 [id number] Ambulatory [address] Repository 08/28/2017/08/29/19 [id number] Ambulatory [address] Repository 08/27/2017/08/28/19 [id number] Ambulatory BMSBuilding: [place] 18 BMS.[facility] Repository 08/26/[id number] [facility] ding:LAB Repository 08/12/[id number] [facility] ding:LAB Repository 08/12/2017/08/13/19 [id number] Ambulatory BMSBuilding: [place] 18 BMS.[facility] Repository 06/26/2017/06/27/19 [id number] Ambulatory [address] Repository 06/26/2017/06/27/19 [id number] Ambulatory [address] MEDICAL Repository CENTERBuildi ng:CAGWS 06/17/2017/06/18/19 [id number] Ambulatory BMSBuilding: [place] 18 BMS.[facility] Repository 06/02/2017/06/04/19 [id number] Ambulatory [address] Repository 05/21/[id number] [facility] ding:LAB Repository 05/06/2017/05/08/19 [id number] Ambulatory [address] Repository 04/09/2017/04/13/19 [id number] Ambulatory [address] Repository 04/08/2017/04/08/19 [id number] Ambulatory BMSBuilding: [place] 18 BMS.[facility] Repository 04/03/2017 [id number] Ambulatory BMS [facility] Repository 03/29/2017/03/31/19 [id number] [place], [place] Inpatient [address] ding:PCURoom Repository : UUL496Ard: 1 03/29/2017 [id number] [place], [place] Ambulatory BMSBuilding: [place] [facility] Repository 03/29/2017 [id number] [place], [place] Ambulatory BMSBuilding: [facility] Repository 03/29/2017 [id number] [place], [place] Ambulatory BMSBuilding: [place] BMS.CF.[facility] Repository 03/29/2017 [id number] [place], [place] Ambulatory BMSBuilding: [place] [facility] Repository 03/29/2017 [id number] [place], [place] Ambulatory BMSBuilding: [facility] Repository 03/29/2017 [id number] [place], [place] Ambulatory BMSBuilding: [place] BMS.CF.[facility] Repository 03/29/2017 [id number] [place], [place] Ambulatory BMSBuilding: [place] [facility] Repository 03/29/2017 [id number] Ambulatory [facility] Repository 03/25/[id number] [facility] ding:PSN Repository 03/24/[id number] [facility] ding:PSN Repository PAYERS PAYERS ENCOUNTER GUARANTOR PAYER SUBSCRIBER SOURCE 03/04/2018 HAL [facility]ellar [facility] BETHELDOB: Insurance:MEDICARE A BETHELDOB: Health System AND BPolicy Number: [id number] [id number] [place] Date: [address]Bew: (HP) 03/04/2018 Secondary HAL Cuellar [facility] Insurance:ANTHEM BETHELDOB: Health System MEDICARE [id number] Repository SUPPLEMENTPolicy Number: [id number] Date: 03/03/2018 HAL D Primary AHL Bruno [place] [id number] Insurance:MEDICARE BETHELDOB: [facility] PARAG PART A BPolicy Number: [id number], [place] [id number] Repository [address]Seu: (766) Date:2018-03-01 [phone] () 03/03/2018 Secondary HAL Carr [place] Insurance:ANTHEMPolicy BETHELDOB: Community Number: [id number] Hospital [id number] Repository Date:9954-56-65TU [id number] [place] [address]ST: 03/03/2018 Tertiary NOT GIVENUNK [place] Insurance:SELF PAY [facility] Number: Effective Repository Date:2018-03-03 03/03/2018 HAL D Primary HAL Carr [place] [id number] Insurance:MEDICARE BETHELDOB: [facility] PARAG PART A BPolicy Number: [id number], [place] [id number] Repository [address]Dby: (063) Date:2018-03-03 [phone] () 03/03/2018 Secondary HAL Bruno [place] Insurance:ANTHEMPolicy BETHELDOB: Community Number: [id number] Hospital [id number] Repository Date:9936-75-31GX [id number] [place] [address] 969[address]MF: 03/03/2018 Tertiary NOT GIVENUNK [place] Insurance:SELF PAY [facility] Number: Effective Repository Date:2018-03-03 02/16/2018 HAL D Primary HAL Bruno [place] [id number] Insurance:MEDICARE BETHELDOB: Community PARAG PART A BPolicy Number: [id number], [place] [id number] Repository [address]Ezo: (330) Date:2018-02-16 [phone] () 02/16/2018 Secondary HAL D [place] Insurance:ANTHEMPolicy BETHELDOB: Community Number: [id number] Hospital [id number] Repository Date:6157-22-57IF [address] [place] [address] 29313MS: 02/16/2018 Tertiary NOT GIVENUNK [place] Insurance:SELF PAY [facility] Number: Effective Repository Date:2018-02-16 01/06/2018 HAL D Primary HAL D [place] [id number] Insurance:MEDICARE BETHELDOB: Community PARAG PART A BPolicy Number: [id number], [place] [id number] Repository [address]Wnt: (330) Date:2017-11-24 [phone] () 01/06/2018 Secondary HAL Bruno [place] Insurance:ANTHEMPolicy BETHELDOB: Community Number: [id number] Hospital [id number] Repository Date:9779-79-41ZN [address] [place] [address] 13292YU: 01/06/2018 Tertiary NOT GIVENUNK [place] Insurance:SELF PAY [facility] Number: Effective Repository Date:2017-12-28 12/15/2017 HAL D Primary HAL D [place] [id number] Insurance:MEDICARE BETHELDOB: Community PARAG PART A BPolicy Number: [id number], [place] [id number] Repository 238[address]Hrs: (330) Date:2017-06-17 [phone] () 12/15/2017 Secondary HAL D [place] Insurance:ANTHEMPolicy BETHELDOB: Community Number: [id number] Hospital [id number] Repository Date:5265-67-26GO [id number] [place] [address] 21586BO: 12/15/2017 Tertiary NOT GIVENUNK [place] Insurance:SELF PAY [facility] Number: Effective Repository Date:2017-12-08 12/09/2017 HAL D Primary HAL Carr [place] [id number] Insurance:MEDICARE BETHELDOB: Community PARAG PART A BPolicy Number: [id number], [place] [id number] Repository [address]Wke: (543) Date:2017-12-09 [phone] () 12/09/2017 Secondary HAL D [place] Insurance:ANTHEMPolicy BETHELDOB: Community Number: [id number] Hospital [id number] Repository Date:9006-36-86[address] [address]PL: 12/09/2017 Tertiary NOT GIVENUNK [place] Insurance:SELF PAY [facility] Number: Effective Repository Date:2017-12-09 11/24/2017 HAL D Primary HAL Bruno [place] [id number] Insurance:MEDICARE BETHELDOB: Community PARAG PART A BPolicy Number: [id number], [place] [id number] Repository [address]Heq: (804) Date:2017-10-16 [phone] () 11/24/2017 Secondary HAL D [place] Insurance:ANTHEMPolicy BETHELDOB: Community Number: [id number] Hospital [id number] Repository Date:2260-22-55XD [address] [place] [address] 37028TS: 11/24/2017 Tertiary NOT GIVENUNK [place] Insurance:SELF PAY [facility] Number: Effective Repository Date:2017-11-17 10/16/2017 HAL D Primary HAL D [place] [id number] Insurance:MEDICARE BETHELDOB: Community PARAG PART A BPolicy Number: [id number], [place] [id number] Repository [address]Whh: (633) Date:2017-09-11 [phone] () 10/16/2017 Secondary HAL D [place] Insurance:ANTHEMPolicy BETHELDOB: Community Number: [id number]-Canoncito-Laguna Service [id number] Repository Date:7238-79-65SF [address] [place] [address]JW: 10/16/2017 Tertiary NOT GIVENUNK [place] Insurance:SELF PAY [facility] Number: Effective Repository Date:2017-09-11 09/11/2017 HAL D Primary HAL Carr [place] [id number] Insurance:MEDICARE BETHELDOB: Community PARAG PART A BPolicy Number: [id number], [place] [id number] Repository [address]Mba: 330) Date:2017-08-27 [phone] () 09/11/2017 Secondary HAL D [place] Insurance:ANTHEMPolicy BETHELDOB: Community Number: [id number] Hospital [id number] Repository Date:5032-93-66KR [address]STQF[address] [place] [address]FM: 09/11/2017 Tertiary NOT GIVENUNK [place] Insurance:SELF PAY [facility] Number: Effective Repository Date:2017-09-04 08/27/2017 HAL D Primary HAL Florentino [id number] Insurance:MEDICARE BETHELDOB: Community PARAG PART A BPolicy Number: [id number], [place] [id number] Repository [address]Elg: 330) Date:2017-08-12 [phone] () 08/27/2017 Secondary HAL D [place] Insurance:ANTHEMPolicy BETHELDOB: Community Number: [id number]-Canoncito-Laguna Service [id number] Repository Date:7865-65-79GB [address]FTE[address] [place] [address]KF: 08/27/2017 Tertiary NOT GIVENUNK [place] Insurance:SELF PAY [facility] Number: Effective Repository Date:2017-08-25 08/26/2017 HAL D Primary HAL Bruno [place] [id number] Insurance:MEDICARE BETHELDOB: Community PARAG PART A BPolicy Number: [id number], [place] [id number] Repository [address]Ptz: (330) Date:[phone] () 08/26/2017 Secondary HAL D [place] Insurance:ANTHEMPolicy BETHELDOB: Community Number: [id number] Hospital [id number] Repository Date:2142-55-65CL [id number] [place] [address] 840[address]SX: 08/26/2017 Tertiary NOT GIVENUNK [place] Insurance:SELF PAY [facility] Number: Effective Repository Date:2017-08-26 08/12/2017 HAL D Primary HAL D [place] [id number] Insurance:MEDICARE BETHELDOB: Community PARAG PART A BPolicy Number: [id number], [place] [id number] Repository [address]Tgk: (330) Date:[phone] () 08/12/2017 Secondary HAL D [place] Insurance:ANTHEMPolicy BETHELDOB: Community Number: [id number] Hospital [id number] Repository Date:5135-30-87HD [address] [place] [address] 453[address]RB: 08/12/2017 Tertiary NOT GIVENUNK [place] Insurance:SELF PAY [facility] Number: Effective Repository Date:2017-08-12 08/12/2017 HAL D Primary HAL D [place] [id number] Insurance:MEDICARE BETHELDOB: Community PARAG PART A BPolicy Number: [id number], [place] [id number] Repository [address]Pwl: (330) Date:2017-08-12 [phone] () 08/12/2017 Secondary HAL D [place] Insurance:ANTHEMPolicy BETHELDOB: Community Number: [id number] Hospital [id number] Repository Date:1356-81-64SM [address]KZNTKKK [place] [address]TT: 08/12/2017 Tertiary NOT GIVENUNK [place] Insurance:SELF PAY Community [facility] Number: Effective Repository Date:2017-08-12 06/26/2017 HAL D Primary HAL Cuellar [facility] BETHELDOB: Insurance:MEDICARE A BETHELDOB: Health System AND BPolicy Number: [id number] [facility] [id number] [place], [place] Date: [address]Eqh: () 06/26/2017 Secondary HAL Cuellar [facility] Insurance:ANTHEM BETHELDOB: Health System MEDICARE [id number] Repository SUPPLEMENTPolicy Number: [id number] Date: 06/17/2017 HAL D Primary HAL Bruno [place] [id number] Insurance:MEDICARE BETHELDOB: Community PARAG PART A BPolicy Number: [id number], [place] [id number] Repository [address]Coq: (729) Date:2017-04-08 [phone] () 06/17/2017 Secondary HAL D [place] Insurance:ANTHEMPolicy BETHELDOB: Community Number: [id number] Hospital [id number] Repository Date:7717-89-65JU [address] [place] [address] 196[address]UA: 06/17/2017 Tertiary NOT GIVENUNK [place] Insurance:SELF PAY [facility] Number: Effective Repository Date:2017-06-15 05/21/2017 HAL D Primary HAL Bruno [place] [id number] Insurance:MEDICARE BETHELDOB: Community PARAG PART A BPolicy Number: [id number], [place] [id number] Repository [address]Ubg: 330) Date:2017-05-21 [phone] () 05/21/2017 Secondary HAL D [place] Insurance:ANTHEMPolicy BETHELDOB: Community Number: [id number] Hospital [id number] Repository Date:2083-22-52[address]ZUDNXCO, [place] [address]BJ: 05/21/2017 Tertiary NOT GIVENUNK [place] Insurance:SELF PAY [facility] Number: Effective Repository Date:2017-05-21 04/08/2017 HAL D Primary HAL D [place] [id number] Insurance:MEDICARE BETHELDOB: Community PARAG PART A BPolicy Number: [id number], [place] [id number] Repository [address]Dgf: (330) Date:2017-02-09 [phone] () 04/08/2017 Secondary HAL D [place] Insurance:ANTHEMPolicy BETHELDOB: Community Number: [id number]-Canoncito-Laguna Service [id number] Repository Date:3902-83-21AJ [address] [place] [address] 54[address]GO: 04/08/2017 Tertiary NOT GIVENUNK [place] Insurance:SELF PAY [facility] Number: Effective Repository Date:2017-02-09 04/03/2017 Hal D Primary Hal D [place] [id number] Insurance:MEDICARE BethelDOB: Community [place] PART A olicy Number: [id number], [place] [id number] Repository [address]Mos: (330) Date:2017-04-03 [phone] () 04/03/2017 Secondary Hal D [place] Insurance:ANTHEMPolicy BethelDOB: Community Number: [id number] Hospital [id number] Repository Date:9285-71-12WO [id number] [place] [address]99[address]ZF: 04/03/2017 Tertiary NOT GIVENUNK [place] Insurance:SELF PAY [facility] Number: Effective Repository Date:2017-04-03 03/29/2017 Hal D Primary Hal D [place] [id number] Insurance:MEDICARE BethelDOB: Community [place] PART A olicy Number: [id number], [place] [id number] Repository 05[address]Ezz: (330) Date:2017-03-29 [phone] () 03/29/2017 Secondary Hal D [place] Insurance:ANTHEMPolicy BethelDOB: Community Number: [id number] Hospital [id number] Repository Date:8096-49-45DZ [address]PFQFVSN, [place] [address]QU: 03/29/2017 Tertiary NOT GIVENUNK [place] Insurance:SELF PAY [facility] Number: Effective Repository Date:2017-03-29 03/29/2017 Hal D Primary Hal Carr [place] [id number] Insurance:MEDICARE BethelDOB: Community [place] PART A BPolicy Number: [id number], [place] [id number] Repository [address]Whi: (330) Date:2017-03-29 [phone] () 03/29/2017 Secondary Hal D [place] Insurance:ANTHEMPolicy BethelDOB: Community Number: [id number] Hospital [id number] Repository Date:1363-02-14VR [address]HIVCHBR, [place] [address]VX: 03/29/2017 Tertiary NOT GIVENUNK [place] Insurance:SELF PAY [facility] Number: Effective Repository Date:2017-03-29 03/29/2017 Hal D Primary Hal Bruno [place] [id number] Insurance:MEDICARE BethelDOB: Community Parag PART A BPolicy Number: [id number], [place] [id number] Repository 50697Bgl: (330) Date:2017-03-29 [phone] () 03/29/2017 Secondary Hal D Mishel Insurance:ANTHEMPolicy BethelDOB: Community Number: [id number] Hospital [id number] Repository Date:8779-26-39[address]TXQPSVZ, [place] [address]OV: 03/29/2017 Tertiary NOT GIVENUNK Mishel Insurance:SELF PAY [facility] Number: Effective Repository Date:2017-03-29 03/29/2017 Hal D Primary Hal D Mishel [id number] Insurance:MEDICARE BethelDOB: Community Parag PART A BPolicy Number: [id number], [place] [id number] Repository 27036Kmd: (330) Date:2017-03-29 [phone] () 03/29/2017 Secondary Hal D Mishel Insurance:ANTHEMPolicy BethelDOB: Community Number: [id number] Hospital [id number] Repository Date:5443-49-33[id number] [place] [address]TU: 03/29/2017 Tertiary NOT GIVENUNK Mellen Insurance:SELF PAY [facility] Number: Effective Repository Date:2017-03-29 03/29/2017 HAL D Primary HAL D Mishel [id number] Insurance:MEDICARE BETHELDOB: Community PAARG PART A BPolicy Number: [id number], [place] [id number] Repository [address]Eor: 330) Date:2017-03-29 [phone] () 03/29/2017 Secondary HAL D Mellen Insurance:ANTHEMPolicy BETHELDOB: Community Number: [id number]-Canonc[facility] [id number] Repository Date:7159-23-29Q[id number] [place] [address]QA: 03/29/2017 Tertiary NOT GIVENUNK Mellen Insurance:SELF PAY [facility] Number: Effective Repository Date:2017-03-29 03/29/2017 Hal D Primary Hal D Mellen [id number] Insurance:MEDICARE BethelDOB: Community Parag PART A BPolicy Number: [id number], [place] [id number] Repository [address]Tqn: 330) Date:2017-03-29 [phone] () 03/29/2017 Secondary Hal D Mellen Insurance:ANTHEMPolicy BethelDOB: Community Number: [id number]-Canoncito-Laguna Service [id number] Repository Date:2564-18-84[id number] [place] [address]OG: 03/29/2017 Tertiary NOT GIVENUNK Mellen Insurance:SELF PAY [facility] Number: Effective Repository Date:2017-03-29 03/29/2017 Hal D Primary Hal D Mellen [id number] Insurance:MEDICARE BethelDOB: Community Parag PART A BPolicy Number: [id number], [place] [id number] Repository [address]Qtd: (330) Date:2017-03-292652 () 03/29/2017 Secondary Hal D Mishel Insurance:ANTHEMPolicy BethelDOB: Community Number: [id number] Hospital [id number] Repository Date:4326-17-98PM [address]FBCITXT, [place] [address]LZ: 03/29/2017 Tertiary NOT GIVENUNK Mellen Insurance:SELF PAY [facility] Number: Effective Repository Date:2017-03-29 03/29/2017 HAL D Primary HAL D Mellen [id number] Insurance:MEDICARE BETHELDOB: Community PARAG PART A BPolicy Number: [id number], [place] [id number] Repository [address]Aus: 330) Date:2017-03-299212 () 03/29/2017 Secondary HAL D Mishel Insurance:ANTHEMPolicy BETHELDOB: Community Number: [id number]-Canoncito-Laguna Service [id number] Repository Date:7624-10-31[address]WSZIENG, [place] [address]WK: 03/29/2017 Tertiary NOT GIVENUNK Mishel Insurance:SELF PAY [facility] Number: Effective Repository Date:2017-03-29 03/25/2017 Hal D Primary Hal D Mellen [id number] Insurance:MEDICARE BethelDOB: Community Parag PART A BPolicy Number: [id number], [place] [id number] Repository [address]Xsp: 330) Date:2007-07-01 [phone] () 03/25/2017 Secondary Hal D Mishel Insurance:ANTHEMPolicy BethelDOB: Community Number: [id number] Hospital [id number] Repository Date:4138-95-21X[address]FKPUDMZ, [place] [address]CV: 03/25/2017 Tertiary NOT GIVENUNK Mellen Insurance:SELF PAY [facility] Number: Effective Repository Date:2016-10-08 03/24/2017 Hal Bruno Primary Hal Florentino [id number] Insurance:MEDICARE BethelDOB: Community Parag PART A BPolicy Number: [id number], [place] [id number] Repository 330[address]Kcc: 330) Date:2007-07-01 [phone] () 03/24/2017 Secondary Hal Florentino Insurance:ANTHEMPolicy BethelDOB: Community Number: [id number] Hospital [id number] Repository Date:9885-32-04JC [address]MDLJCIP, [place] [address]KI: 03/24/2017 Tertiary NOT GIVENUNK Mishel Insurance:SELF PAY [facility] Number: Effective Repository Date:2016-10-08
== END ==
PROVIDERS: Family Provider Family Medicine; PCP Family Medicine; Referring Provider Urology; Visit Provider Urology
DX: C61 Malignant neoplasm of prostate (principal)
CPT/HCPCS: 36415; 84153

== ENCOUNTER → 2018-03-03 10:14 | Outpatient (CLI) | payer MEDICARE, BC, SELFPAY ==
[2018-02-16 11:00] VITALS: BMI 28.5
== END ==
LOC: LAB 10:17 → LABSPEC 10:20
PROVIDERS: Family Provider Family Medicine; PCP Family Medicine; Referring Provider Nurse Practitioner Acute Care; Visit Provider Nurse Practitioner Acute Care
DX: R05 Cough (principal)
CPT/HCPCS: 87070; 87077; 87186; 87205

== ENCOUNTER → 2018-08-06 09:45 | Outpatient (CLI) | payer MEDICARE, BC, SELFPAY ==
[2018-05-13 13:10] VITALS: BMI 28.5
[2018-08-06 11:22] LABS: PSA,Total- Diagnostic 0.06 ng/mL (0.0-4.0)
== END ==
PROVIDERS: Family Provider Family Medicine; PCP Family Medicine; Referring Provider Urology; Visit Provider Urology
DX: C61 Malignant neoplasm of prostate (principal)
CPT/HCPCS: 36415; 84153

== ENCOUNTER → 2019-02-10 12:21 | Outpatient (CLI) | payer MEDICARE, BC, SELFPAY ==
[2019-01-13 08:37] VITALS: BMI 27.0
[2019-02-10 13:50] LABS: PSA,Total- Diagnostic 0.08 ng/mL (0.0-4.0)
== END ==
PROVIDERS: Family Provider Family Medicine; PCP Family Medicine; Referring Provider Urology; Visit Provider Urology
DX: C61 Malignant neoplasm of prostate (principal)
CPT/HCPCS: 36415; 84153

== ENCOUNTER → 2019-08-16 13:37 | Outpatient (CLI) | payer MEDICARE, BC, SELFPAY ==
[2019-07-12 12:30] VITALS: BMI 27.0
[2019-08-16 15:25] LABS: PSA,Total- Diagnostic 0.08 ng/mL (0.0-4.0)
== END ==
PROVIDERS: PCP Family Medicine; Referring Provider Urology; Visit Provider Urology
DX: C61 Malignant neoplasm of prostate (principal)
CPT/HCPCS: 36415; 84153

== ENCOUNTER → 2020-01-17 15:41 | Outpatient (CLI) | payer MEDICARE, BC, SELFPAY ==
[2020-01-10 11:13] VITALS: BMI 27.3
--- NOTE | 2020-01-17 15:44 | CT_ITS ---
STUDY: CT CHEST WITHOUT CONTRAST REASON FOR EXAM: Male, 79 years old. COPD. Lung nodule. RADIATION DOSAGE (If Supplied By Facility): CTDIvol = ( 13.70 ) mGy, DLP = ( 547.81 ) mGycm TECHNIQUE: Transaxial imaging was performed without the administration of intravenous contrast material. Multiplanar coronal and sagittal images were reformatted. Individualized dose optimization techniques were used for this CT. COMPARISON: CTA of the chest, 05/23/2016. CT of the chest, 05/17/2012.. FINDINGS: The lungs are mildly emphysematous. There is a new area of focal scarring in the left upper lobe is has a nodular component measuring 0.9 x 0.5 x 0.7 cm. This is best seen on image 38 of series 4. Scarring extends downward towards the upper left hilum. In the lateral aspect of the anterior right lower lobe there is a triangular area of scarring which extends downward to the junction of the oblique fissure and diaphragm which is unchanged from the previous study. There is also irregular nodular density in the periphery of the left lower lobe best seen on image 91 of series 4. This measures 1.4 x 1.1 x 1.0 cm. No other mass or infiltrate is seen in the lungs. There is no demonstrated pleural abnormality. Normal heart and pericardium. No evidence of CABG procedure. Nonspecific subcentimeter mediastinal lymphadenopathy which is stable. Normal hilar regions. Normal unenhanced pulmonary arteries. There is atherosclerotic calcification of the aortic arch with tortuosity and elongation of the aortic arch and descending thoracic aorta. There are multi-level degenerative changes of the thoracic spine. There is no change in the appearance of the upper abdomen. CT/Chest without Contrast IMPRESSION: 1. Stable scarring in the right lower lobe. There is is unchanged from the 2013 study and assume benign. No further workup is needed. 2. Scarring and nodularity in the left upper lobe as well as a focal mass in left lower lobe not previously seen. These are suspicious for malignancy. Short-term follow-up versus PET scan versus biopsy is recommended. 3. Evidence of CABG procedure. 4. No other major change from the prior CTA Electronically Signed: Riccardo Bonilla DO at 21:37 EST Tel [phone], Service support ,
== END ==
PROVIDERS: PCP Family Medicine; Referring Provider Internal Medicine Critical Care Medicine; Visit Provider Internal Medicine Critical Care Medicine
DX: R91.1 Solitary pulmonary nodule (principal)
CPT/HCPCS: 71250

== ENCOUNTER 2020-01-21 14:02 | Emergency (ER) | payer MEDICARE, BC, SELFPAY ==
[2020-01-19 08:10] VITALS: BMI 27.6
[2020-01-21 14:04] VITALS: BP 162/88; PULSE 85; RESP 16; TEMP 36.2; O2SAT 99; BMI 26.6
--- NOTE | 2020-01-21 15:03 | ED.DCSUM_ITS ---
- ER Visit Summary Date of Service: 01/21/20 Chief Complaint: Cut finger tip History of Present Illness: The patient is a 79 M who cut his right middle fingertip on a slicer earlier today. He takes aspirin and Plavix. Physical Examination: 0.5 cm? fingertip avulsion to right middle finger. Test Results: None indicated Emergency Department Course and Treatment: Wound was cleaned and examined. Dressed with Gelfoam. Keflex prophylaxis. Patient declined tetanus. Wound care instructions. Follow-up or return if worse. Treatment Plan: As above Disposition: Discharge Impression: Right middle fingertip avulsion 0.5 cm? This note was generated with [employer] dictation software. It may contain incorrect words, spelling, and punctuation that were not noted in review of the chart prior to signing ED Disposition - Plan for ED Patient: Referrals: Dillan Cummins MD [Primary Care Provider] -
--- NOTE | 2020-01-21 15:04 | ED.DEP ---
ED Disposition - Plan for ED Patient: Instructions: ED Finger Tip Amputation Open Treatment Prescriptions: Cephalexin [Keflex] 500 mg PO 4X/DAY 3 Days #12 cap Prescription Printed Referrals: Dillan Cummins MD [Primary Care Provider] -
[2020-01-21] MEDS: Gelfoam 12-7 MM Sponge (1) 1 EACH TP (15:48)
== END 2020-01-21 15:51 | disposition home or self-care (01) ==
LOC: ED 15:10
PROVIDERS: Emergency Provider Emergency Medicine; PCP Family Medicine
DX: S61.302A Unspecified open wound of right middle finger with damage to nail, initial encounter (principal); W27.8XXA Contact with other nonpowered hand tool, initial encounter; Y93.9 Activity, unspecified; Y92.9 Unspecified place or not applicable; Y99.9 Unspecified external cause status; Z79.02 Long term (current) use of antithrombotics/antiplatelets; Z79.82 Long term (current) use of aspirin; I25.10 Atherosclerotic heart disease of native coronary artery without angina pectoris; I10 Essential (primary) hypertension; J44.9 Chronic obstructive pulmonary disease, unspecified; E78.00 Pure hypercholesterolemia, unspecified; Z72.0 Tobacco use; Z85.46 Personal history of malignant neoplasm of prostate
CPT/HCPCS: 99282

== ENCOUNTER → 2020-01-27 09:01 | Outpatient (CLI) | payer MEDICARE, BC, SELFPAY ==
[2020-01-19 08:10] VITALS: BMI 27.6
[2020-01-21 14:04] VITALS: BMI 26.6
[2020-01-27] VITALS (13 sets, daily range): BP systolic 112–164; BP diastolic 52–79; PULSE 60–98; RESP 12–21; TEMP 36.9; O2SAT 96–100; BMI 26.6
--- NOTE | 2020-01-27 | ASPIGT_PTH ---
PATIENT: OSWALDO MENDIOLA LOC: CT U#:[id number] AGE/SX: 84/M ROOM: RE01/27/[address]: MARY LOU Rose : 1940 BED: DIS: SPEC #: [id number] RECD: 01/27/20 12:05 STATUS: HERON SHEILA #: [id number] EDMOND: 01/27/20 00:[address]: Karol Hurtado NP DEPT: SURGICAL PATHOLOGY RECD BY: Denny Benson ENTERED: 01/27/20 12:05 SP TYPE: ASP RAD OTHR DR: Dr. Dillan Cummins MD Tissues: Lung, NOS Procedures: FNA Specimen Adequacy Elastin Stain (control) Trichrome (control) Special Stain Group II Surgery Specimen Level IV Retic (control) Imprint (control) HEADER OPERATION: LLL mass, CT-guided core biopsy PRE-OP DIAGNOSIS: LLL mass TISSUE SUBMITTED: LLL mass 18 gauge x4 cores MICROSCOPIC DIAGNOSIS LLL mass, CT-guided core biopsy: Fragments of benign lung parenchymal tissue with focal minimal fibrosis. Negative for malignancy. See comment. SILVA:yesenia 01/30/20 COMMENT The specimen is evaluated at the time of biopsy by Dr. Arguelles. Immediate Evaluation: Set #1 - two passes - Negative for malignant cells. Rare minute fragment of fibrous tissue and skeletal muscle tissue. Paucicellular specimen. Set #2 - one pass - Negative for malignant cells. Set #3 - two passes - Negative for malignant cells. Fragments of fibrous tissue and skeletal muscle tissue are also noted. Reticulin, trichrome and elastic stains with matched controls are also performed in the evaluation of the specimen. If there is high suspicion of malignancy, rebiopsy of the lesion is suggested, if clinically indicated. MICROSCOPIC DESCRIPTION Slides are reviewed. GROSS DESCRIPTION Received in fixative is one container labeled with the patient's name and designated LLL mass, CT-guided core biopsy. The specimen consists of multiple irregular fragments of darling soft tissue that in aggregate measure 1 x 0.2 x 0.1 cm. The specimen is totally submitted in one cassette. / SILVA:yesenia 01/27/20 TC:5 CPT: 78712, 53374, 82378 x2, 25876 x3
--- NOTE | 2020-01-27 09:04 | CT_ITS ---
PROCEDURE: Ultrasound Guided CLINICAL HISTORY: Male, 79 years old. LEFT LOWER LOBE LUNG MASS BIOPSY CONSENT: Time-Out Called: Yes Consent form signed: YES PT-PTT Levels Checked: Yes SEDATION: 2 mg of VERSED and 75 mcg of FENTANYL IV TECHNIQUE: This procedure was performed with CT guidance. FINDINGS: The patient was placed in a right lateral decubitus position. 3 needle sticks were performed as the lesion was directly behind a rib and difficult to access. On the final needle stick, a 5% pneumothorax was created and 4 core biopsy specimens were obtained. 3 of the 4 core biopsy specimens contain sufficient material for diagnosis. After this, the biopsy needle stylette was removed and, utilizing a three-way stopcock and tubing, an attempt was made to aspirate the pneumothorax through the introducer device. We were able to reduce the pneumothorax down to about a 5% pneumothorax, and then removed the introducer device. A postbiopsy CT scan showed about 5% pneumothorax. A later inspiration and expiration x-ray obtained following the procedure showed a 10-15% left pneumothorax. I informed the patient and his and the patient did not appear to be any in any acute distress. A follow-up inspiration and expiration chest x-ray will be obtained in 2 hours and if the patient''s condition remains stable the patient will be discharged home for a repeat inspiration and expiration chest x-ray on 01/28/2020 between 8:30 AM 9:[address]Tamara Rosales, was notified of this complication and has agreed to review the patient''s follow-up chest x-ray and attend to any complications. CT/Biopsy/Inj or Needle Placement IMPRESSION: 1. A CT directed lung biopsy of a 1 cm mass lesion lateral aspect of the left lower lobe was performed and diagnostic tissue was obtained. 2. During the procedure, a 10-15 % left pneumothorax was created. Although the patient appeared to be in stable condition and in no acute distress, Dr.Tamara Rosaels was contacted for follow-up and eventual management of this pneumothorax, as described above. Electronically Signed: Adi Gurrola, at 13:38 EST Tel , Service support ,
--- NOTE | 2020-01-27 09:15 | RAD_ITS ---
EXAM DESCRIPTION: PORTABLE AP CHEST CLINICAL HISTORY: 79 years Male, 2 hour post right side lung biopsy 2 hour post right side lung biopsy COMPARISON: Previous chest x-ray obtained earlier on 01/27/2020 FINDINGS: Sternotomy sutures are noted in place. On the two-hour images the inspiration and expiration chest x-ray was obtained portably was difficult to compared with the earlier study. For this reason an upright inspiration expiration chest was performed. The rest of the thorax is intact. The heart and mediastinum appear to be within normal limits. Right lung appears to be normal. There is a 10-15% left hydropneumothorax which was noted previously and is unchanged. Again noted is some opacification in the left lung base most likely due to residual hemorrhage from the recently obtained CT directed left lung base biopsy. The patient was in stable condition 2 hours post biopsy and the patient stated he had some slight pain overlying the left chest but this has improved since his biopsy. I talked to the patient and his regarding the left pneumothorax. His was specifically total that if the patient developed severe left chest pain and shortness of breath he should come in to the emergency room immediately for chest tube insertion. The patient is leaving the bandage on for the next 48 hours and is to return on 01/28/2020 for a repeat chest x-ray that will be reviewed by Dr.Tamara San. RAD/Chest Insp/Exp 2 View IMPRESSION: Status post lung biopsy of a nodular density in the left lung base with residual 10-15% left hydropneumothorax which is unchanged from the initial post biopsy chest x-ray. The patient is stable and will be re-x-ray tomorrow morning at 8:30-9:00 AM. Electronically Signed: Adi Galileo, at 15:35 EST Tel , Service support ,
--- NOTE | 2020-01-27 09:15 | RAD_ITS ---
EXAM DESCRIPTION: Inspiration and expiration chest x-ray CLINICAL HISTORY: 79 years Male, IMMEDIATE LEFT POST LUNG BX. INSPR/EXPR VWS IMMEDIATE LEFT POST LUNG BX. INSPR/EXPR VWS COMPARISON: Previous chest x-ray obtained on 03/29/2017 FINDINGS: Sternotomy sutures are noted in place. The rest of the thorax is intact. The heart and mediastinum appear to be within normal limits. The lungs show focal area of opacification in the left lung base laterally representing the site of the recently obtained CT directed lung biopsy. Now noted is a 10-15 % left pneumothorax which was previously not seen and is the result of the CT directed lung biopsy. The patient is were informed of this pneumothorax and a follow-up chest x-ray in 2 hours will be obtained. Currently the patient is in no acute distress RAD/Chest Insp/Exp 2 View IMPRESSION: A 10-15% left pneumothorax was identified following a CT directed lung biopsy with residual edema seen in the lateral left lung base. Electronically Signed: Adi Gurrola, at 13:17 EST Tel , Service support ,
[2020-01-27 09:20] LABS: Platelet Count 182 K/mm3 (150-450)
[2020-01-27 09:33] LABS: Partial Thromboplast Time 27.1 Seconds (24.1-36.2); Prothrombin Time (Protime)PT. 12.4 SECONDS (11.7-14.9)
[2020-01-27] MEDS: fentaNYL 100 MCG/2 ML Ampul IV ×3 (10:14→11:39)
[2020-01-27] MEDS: Midazolam 2 MG/2 ML Syringe IV ×2 (10:14→10:59)
--- NOTE | 2020-01-27 15:25 | NURSING ---
DR. SEVERINO TALKING WITH PT AND HIS ABOUT PNEUMOTHORAX REMAINING IN 2 HR POST FILMS. PT AWARE THAT HIS IS TO COME TO ER FOR CHEST PAIN OR SOB. PT CURRENTLY RATES LT SIDED CP AT 310, WHICH HAS REMAINED UNCHANGED SINCE AFTER HIS BIOPSY. PT IS AWARE THAT HE IS TO COME TO DIAGNOSTICS TOMORROW FOR FOLLOW UP CHEST XRAY AT [address] TURNER WILL REVIEW HIS CXR AND DETERMINE PLAN OF CARE.
--- NOTE | 2020-01-28 08:30 | RAD_ITS ---
STUDY: X-RAY CHEST REASON FOR EXAM: Male, 79 years old. post bx yesterday. known pneumo. pt having pain and sob TECHNIQUE: Single AP portable view of the chest. COMPARISON: 01/27/2020 FINDINGS: There is hyperinflation of the lungs consistent with chronic obstructive lung disease (COPD). No acute airspace disease. Scarring in both lung bases. There is no demonstrated pleural abnormality. Sternal cerclage wires and vascular clips are present from a prior sternotomy and coronary artery bypass graft procedure (CABG). Normal mediastinum and pepito. Normal visualized pulmonary arteries. Normal visualized aortic arch and descending thoracic aorta. Normal visualized thoracic spine. Normal visualized ribs, clavicles, and shoulders. There is no demonstrated abnormality of the visualized soft tissue structures of the upper abdomen. RAD/Chest Insp/Exp 2 View IMPRESSION: COPD without acute findings Electronically Signed: Silver Weldon DO at 9:01 EST Tel , Service support ,
== END ==
PROVIDERS: PCP Family Medicine; Referring Provider Nurse Practitioner Acute Care; Visit Provider Nurse Practitioner Acute Care
DX: R91.8 Other nonspecific abnormal finding of lung field (principal); R06.02 Shortness of breath
CPT/HCPCS: 32405; 36415; 71046; 77012; 85049; 85610; 85730; 88172; 88305; 88313; 99155; 99156; 99157; J7040; A4216

== ENCOUNTER → 2020-02-08 09:31 | Outpatient (CLI) | payer MEDICARE, BC, SELFPAY ==
[2020-02-08 09:14] VITALS: BMI 27.3
--- NOTE | 2020-02-08 09:38 | CT_ITS ---
STUDY: CTA CHEST REASON FOR EXAM: Male, 79 years old. SOB AND PLEURITIC CHEST PAIN FOLLOWING BIOPSY AND COLLASPED LUNG 01/27/20 RADIATION DOSAGE (If Supplied By Facility): CTDIvol = ( 11.99 ) mGy, DLP = ( 508.26 ) mGycm TECHNIQUE: The examination was performed with the intravenous administration of IV 100mL Isovue-370. Post-processing of the angiographic images was performed, with multiplanar reformation and 3D reconstruction. Individualized dose optimization techniques were used for this CT. COMPARISON: Comparison is made with prior study dated 05/23/2016. FINDINGS: Normal enhancement of the main pulmonary artery and right and left pulmonary arteries. Normal enhancement of the bilateral peripheral pulmonary arteries. There is no demonstrated pulmonary embolism. Normal thoracic aorta and visualized great vessels. There is no demonstrated aortic dissection. Sternal cerclage wires and vascular clips are present from a prior sternotomy and coronary artery bypass graft procedure (CABG). Normal mediastinum. Normal hilar regions. Normal visualized trachea and bronchi. Hyperinflation. Emphysematous changes. Mild increased markings in the left upper lobe laterally. This is unchanged and most likely represents an area of scarring. There is a 1.6 cm pleural-based density in the lateral aspect of the left lower lobe. There is evidence of medial loculated left pleural effusion with increased density suggestive of a possible post biopsy pneumothorax. Stable calcified pleural plaques. Normal chest wall structures. There are degenerative changes of thoracic spine. Normal visualized upper abdomen. CT/CTA Chest W/WO Contrast IMPRESSION: Findings suggestive of a postbiopsy left hydrocele thorax. This is loculated along the lateral wall. Stable pleural-based nodule in the left lower lobe. Stable emphysematous changes with scarring in the left upper lobe. Electronically Signed: Fernando Sidhu, at 10:15 EST , Service support ,
[2020-02-08 09:50] LABS: CREATININE FINGERSTICK 1.3 mg/dL (0.70-1.30)
== END ==
PROVIDERS: PCP Family Medicine; Referring Provider Internal Medicine Critical Care Medicine; Visit Provider Internal Medicine Critical Care Medicine
DX: R07.81 Pleurodynia (principal)
CPT/HCPCS: 71275; Q9967

== ENCOUNTER → 2020-03-26 11:14 | Outpatient (CLI) | payer MEDICARE, BC, SELFPAY ==
[2020-02-08 09:14] VITALS: BMI 27.3
[2020-03-26 12:42] LABS: PSA,Total- Diagnostic 0.11 ng/mL (0.0-4.0)
== END ==
PROVIDERS: PCP Family Medicine; Referring Provider Urology; Visit Provider Urology
DX: C61 Malignant neoplasm of prostate (principal)
CPT/HCPCS: 36415; 84153

== ENCOUNTER 2020-04-05 14:07 | Emergency (ER) | payer MEDICARE, BC, SELFPAY ==
[2020-02-08 09:14] VITALS: BMI 27.3
[2020-04-05 14:08] VITALS: BP 117/76; PULSE 129; RESP 19; TEMP 36.7; O2SAT 92; BMI 26.0
[2020-04-05 14:12] VITALS: BP 127/75; PULSE 101; RESP 23; TEMP 36.7; O2SAT 96
--- NOTE | 2020-04-05 14:23 | EKG12_ITS ---
Test Reason : SOB Blood Pressure : / mmHG Vent. Rate : 099 BPM Atrial Rate : 099 BPM P-R Int : 170 ms QRS Dur : 074 ms QT Int : 314 ms P-R-T Axes : 059 043 056 degrees QTc Int : 402 ms Normal sinus rhythm Normal ECG Confirmed by MICHAEL SOTO, SALAZAR ([id number]), newspaper editor managing VERONICA ZHAO ([id number]) on 04/06/2020 11:20:01 AM Referred By: FANNY Confirmed By:SALAZAR RODRIGUEZ MD
--- NOTE | 2020-04-05 14:35 | ED.DCSUM_ITS ---
- ER Visit Summary Date of Service: 04/05/20 Chief Complaint: Shortness of breath, left-sided chest pain History of Present Illness: The patient is a 79 M who has shortness of breath as well as left axillary chest pain. The pain started 2 days ago. Patient has a history of a lung nodule and had a pneumothorax back in January. He was transferred to [facility] and had surgery and had 2 chest tubes placed for the pneumothorax. This occurred after a needle biopsy. He states that 2 days ago he started having a recurrence of the same symptoms. He has had a mild cough. The pain is sharp in the left axillary area. He denies any fevers. He had an outpatient CAT scan done yesterday which shows a moderate sized loculated pneumothorax on the left-hand side. Physical Examination: Vital signs reviewed. HEENT exam unremarkable. Heart is regular rate and rhythm without murmurs. Lungs diminished sounds on the left. Abdomen is soft and nontender. Extremities reveal no edema. Skin exam normal. Neurologic exam normal. Test Results: Laboratory studies show a chloride of 109, BUN of 23. Troponin is normal. EKG is sinus rhythm with a rate of 99. No ischemic changes. Chest x- ray redemonstrates the 5.1 x 4 cm loculated pneumothorax on the left-hand side. Emergency Department Course and Treatment: Was able to obtain the disc of the CAT scan performed 2 days ago. It does reveal with this loculated pleural ef fusion. The patient is not hypoxic and his heart rate is normal. Patient was discussed with Dr. Herrmann at [facility]. At first he recommended local admission as he believes he may not have to do any interventions on this. However, due to the lack of CT surgery here I feel the patient will be better served at [facility]. Dr. Herrmann did accept the patient in transfer. Treatment Plan: [] Disposition: Transfer Impression: Left-sided loculated pneumothorax This note was generated with [employer] dictation software. It may contain incorrect words, spelling, and punctuation that were not noted in review of the chart prior to signing ED Disposition - Plan for ED Patient: Referrals: Dillan Cummins MD [Primary Care Provider] -
[2020-04-05 15:00] LABS: Absolute Lymphocyte Count 0.56 X10^3/uL (0.83-4.51); Absolute Neutrophil Count 7.9 X10^3/uL (2.0-7.7); Basophil# 0.03 X10^3/uL; Basophil% 0.3 % (0-1); Eosinophil# 0.07 X10^3/uL; Eosinophils% 0.8 % (0-5); Hematocrit 42.1 % (40-54); Lymphocyte # 0.56 X10^3/ul (4.0); Lymphocyte % 6.2 % (19-41); Mean Corp Hgb Conc 30.9 g/dL (32-36); Mean Corpuscular Hgb 27.8 pg (27.0-32.0); Mean Corpuscular Volume 90.1 fL (80-94); Mean Platelet Vol. 8.6 fl (6.2-12.0); Monocyte# 0.53 X10^3/uL; Monocyte% 5.8 % (0-10); NRBC Flagged by Analyzer 0 % (0-5); Neutrophil # 7.85 X10^3/uL (2.7-7.7); Neutrophil % 86.6 % (47-70); POSITIVE DIFFERENTIAL YES; Platelet Count 225 K/mm3 (150-450); RBC Distribution Width CV 14.9 % (11.6-14.6); RBC Distribution Width SD 49.1 fl (35.1-43.9); Red Blood Count 4.67 M/mm3 (4.6-6.2); White Blood Count 9.1 K/mm3 (4.4-11.0)
[2020-04-05 15:01] LABS: Differential Indicated SCAN CRITERIA MET
[2020-04-05 15:12] VITALS: BP 113/73; PULSE 89; RESP 20; TEMP 36.9; O2SAT 99
[2020-04-05 15:19] LABS: Platelet Estimate ADEQUATE (ADEQ); Red Cell Morphology NORM C+C NORMAL (NORM C&C)
[2020-04-05 15:20] LABS: Anion Gap 6 (5-15); BUN 23 mg/dL (7-18); BUN/Creat Ratio 23.6 RATIO (10-20); Calcium,Total 9.2 mg/dL (8.5-10.1); Chloride 109 mmol/L (98-107); Creatinine, Serum 0.98 mg/dL (0.70-1.30); EST Glomerular Filtration Rate 79 mL/min (>60); Est Glom Filt Rate - Afr Amer 96 mL/min (>60); Estimated Creatinine Clearance 67.23 ml/min; Glucose 103 mg/dL (74-106); Potassium 4.1 mmol/L (3.5-5.1); Sodium Level 139 mmol/L (136-145)
--- NOTE | 2020-04-05 15:27 | RAD_ITS ---
STUDY: X-RAY CHEST REASON FOR EXAM: Male, 79 years old. Air pocket found on ct done on Thursday. Increased pain and sob that started 2 days ago -- lung ca. Had surgery in january on lungs TECHNIQUE: PA and lateral views of the chest. COMPARISON: Comparison is made with prior study dated 01/28/2020. FINDINGS: EKG electrodes are seen. Hyperinflation. There is evidence of a loculated hydropneumothorax in the lateral aspect of the left lower lobe measuring 5.1 cm x 4 cm. Blunting of both costophrenic angles. Stable underlying scarring at the lung bases as well as in the left upper lobe. Normal size heart. Normal mediastinum and pepito. Normal visualized pulmonary arteries. There is atherosclerotic calcification of the aortic arch with tortuosity. There is demineralization of the osseous structures. Normal visualized ribs, clavicles, and shoulders. There is no demonstrated abnormality of the visualized soft tissue structures of the upper abdomen. RAD/Chest PA and Lateral IMPRESSION: 5.1 cm x 4 cm loculated hydropneumothorax in the lateral aspect of the left lower lobe. This is superimposed on hyperinflation and scarring at the lung bases. Electronically Signed: Fernando Sidhu MD at 15:41 EST , Service support ,
[2020-04-05 15:59] VITALS: BP 113/73; PULSE 89; RESP 19; TEMP 36.9; O2SAT 99
[2020-04-05 16:02] VITALS: O2SAT 97
--- NOTE | 2020-04-05 16:08 | NURSING ---
CALLED [facility] TO START TRANSFER
--- NOTE | 2020-04-05 16:42 | NURSING ---
DR FONSECA FOR DR PARIKH
--- NOTE | 2020-04-05 16:49 | NURSING ---
DR RAYMUNDO SHIN ER NURSE TO NURSE [phone]
--- NOTE | 2020-04-05 16:55 | NURSING ---
CALLED [facility]. ETA IS 1. TO 1.5 HRS.
[2020-04-05 16:59] VITALS: BP 130/74; PULSE 97; RESP 20; TEMP 36.8; O2SAT 100
--- NOTE | 2020-04-05 17:09 | NURSING ---
ETA IS 40 MIN FOR [facility]
== END 2020-04-05 17:37 | disposition short-term general hospital (02) ==
LOC: ED 14:52
PROVIDERS: Emergency Provider Emergency Medicine; PCP Family Medicine
DX: J93.9 Pneumothorax, unspecified (principal); Z85.118 Personal history of other malignant neoplasm of bronchus and lung
CPT/HCPCS: 71046; 80048; 84484; 85025; 93005; 99285; A4216

== ENCOUNTER 2020-05-03 14:33 | Outpatient (RCR) | payer MEDICARE, BC, SELFPAY ==
[2020-05-03] MEDS: COVID-19 VACC, MRNA(PFIZER)/PF 30 MCG/0.3 ML SYRINGE IM (15:48)
[2020-05-24] MEDS: COVID-19 VACC, MRNA(PFIZER)/PF 30 MCG/0.3 ML SYRINGE IM (14:58)
== END 2020-08-07 23:59 ==
LOC: IMMUN 14:33
PROVIDERS: PCP Family Medicine; Visit Provider Family Medicine
DX: Z23 Encounter for immunization (principal)
CPT/HCPCS: 0001A; 0002A; 91300

== ENCOUNTER 2020-07-09 13:35 | Inpatient (IN) | payer MEDICARE, BC, SELFPAY ==
[2020-06-13 12:50] VITALS: BMI 25.1
[2020-07-09] VITALS (18 sets, daily range): BP systolic 112–156; BP diastolic 64–100; PULSE 77–131; RESP 12–28; TEMP 36.3–37.7; O2SAT 71–100; BMI 25.2; BMI 24.9
--- NOTE | 2020-07-09 13:47 | EKG12_ITS ---
Test Reason : SOB Blood Pressure : / mmHG Vent. Rate : 103 BPM Atrial Rate : 103 BPM P-R Int : 140 ms QRS Dur : 076 ms QT Int : 304 ms P-R-T Axes : 050 027 014 degrees QTc Int : 398 ms Sinus tachycardia Otherwise normal ECG Confirmed by MICHAEL SOTO, SALAZAR ([id number]), tape editor YINA HERNANDEZ ([id number]) on 07/11/2020 8:16:36 AM Referred By: ALEX Confirmed By:SALAZAR RODRIGUEZ MD
--- NOTE | 2020-07-09 13:50 | ED.VIS.DYS ---
HPI History of Present Illness Chief Complaint: Shortness of Breath Informant: patient and family Onset/Context/Timing Onset: Days Context: gradual Timing: Continuous Quality: Positive for Dyspnea on exertion and Wheezing Current Severity: Moderate Maximum Severity: Severe Worsened by: Exertion and Coughing Relieved by: Nothing Associated Symptoms cough Narrative Narrative: The patient is a 79-year-old male with medical history significant for squamous cell cancer of the long who presents to the emergency department increasing shortness of breath. Patient has had a rather complex recent medical history. He underwent bronchoscopy and needle biopsy. He ended up with a small pneumothorax and had chest tubes. He seemed to recovered but then returned in April with a loculated effusion. The patient was treated at [facility]. He states his been doing well since then. Over the past 3 or 4 days, he has had gradually increasing shortness of breath. States he feels like he cannot catch his breath. He did have fever of 102 on Thursday. He is also had scant cough. He has not on oxygen at home. 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 Home Medications aspirin 81 mg PO DAILY@0800 12/29/14 [History Last Taken 04/19/16] atorvastatin 20 mg PO QHS 12/29/14 [History Last Taken 04/18/16] lorazepam 1 mg PO TID PRN PRN 12/29/14 [History Last Taken Unknown] nitroglycerin 0.4 mg SL PRN PRN 12/29/14 [History Last Taken Unknown] clopidogrel 75 mg PO DAILY 04/19/16 [History Last Taken 01/19/20] Handicap Placard #1 ea 12/15/17 [Rx Last Taken Unknown] tiotropium bromide 2.5 mcg/actuation mist for inhalation 2 puff INHALATION Q24H #1 device 01/10/20 [Rx Last Taken Unknown] albuterol sulfate 90 mcg/actuation aerosol inhaler 2 puff INHALATION Q4H PRN #8.5 g 02/08/20 [Rx Last Taken Unknown] albuterol sulfate 2.5 mg INHALATION Q4H PRN #120 vial 02/14/20 [Rx Last Taken Unknown] mometasone-formoterol HFA 200 mcg-5 mcg/actuation aerosol inhaler 2 puff INHALATION BID #13 g 03/19/20 [Rx Last Taken Unknown] Allergy/AdvReac Type Severity Reaction Status Date / Time isosorbide [From Imdur] Allergy Other-patient Verified 07/09/20 13:38 blacks out Family History Other No pertinent family history Surgical History No pertinent past surgical history Social History Smoking Status: Former smoker Tobacco: How many years used: 45 Electronic Cigarette Use: not used how long ago did patient quit smokin, second hand exposure: Yes alcohol intake: never substance use type: does not use ROS ROS ED Constitutional Constitutional ED: Reports chills and fever(s) Eyes Eyes: Denies blurry vision or change in vision ENT ENT ED: Denies ear pain or sore throat Cardiovascular Cardiovascular: Denies chest pain or palpitations Respiratory/Chest Respiratory/Chest: Reports cough and dyspnea; Denies dyspnea on exertion Gastrointestinal Gastrointestinal: Denies abdominal pain, nausea or vomiting Genitourinary Genitourinary ED: Denies dysuria or urinary frequency Musculoskeletal Musculoskeletal: Denies arthralgias or myalgias Integumentary Denies rash Neurologic Neurologic: Denies headache(s) or paresthesias Psychiatric Psychiatric: Denies anxiety or depression Endocrine Endocrinology: Denies polydipsia or polyuria Allergic/Immunologic Allergic/Immunologic ED: Denies urticaria EXAM Physical Exam Const Vital Signs: 07/09/20 13:35 07/09/20 13:36 07/09/20 13:38 Temperature 99.9 F H 99.9 F H Temperature Source Temporal Temporal Pulse Rate 117 H 131 H 131 H Respiratory Rate 28 H 24 H 24 H Respiratory Effort Respiratory Pattern Blood Pressure 156/78 H 156/78 H Blood Pressure Mean 104 104 Pulse Ox 98 71 98 Oxygen Delivery Method Nasal Cannula Room Air Nasal Cannula Oxygen Flow Rate (L/min) 6 6 07/09/20 13:48 07/09/20 13:52 07/09/20 14:06 Temperature Temperature Source Pulse Rate 111 H Respiratory Rate 28 H Respiratory Effort Short of Breath Labored Accessory Muscle Use Respiratory Pattern Tachypnea Tachypnea Blood Pressure Blood Pressure Mean Pulse Ox 98 Oxygen Delivery Method Nasal Cannula Nasal Cannula Oxygen Flow Rate (L/min) 6 6 07/09/20 14:35 07/09/20 14:38 07/09/20 15:00 Temperature 98.6 F 98.6 F 98.2 F Temperature Source Oral Oral Oral Pulse Rate 120 H 120 H 115 H Respiratory Rate 25 H 25 H 22 H Respiratory Effort Respiratory Pattern Blood Pressure 153/78 H 153/78 H 125/75 H Blood Pressure Mean 103 103 91 Pulse Ox 99 99 98 Oxygen Delivery Method Nasal Cannula Nasal Cannula Nasal Cannula Oxygen Flow Rate (L/min) 6 6 6 Positive well nourished and well developed General Appearance ED: well developed HEENT Reports normocephalic, head/scalp atraumatic and moist mucous membranes Eyes PERRL and EOMs intact bilaterally Neck no lymphadenopathy and supple General: Negative for tenderness Chest Wall inspection of chest normal Resp Auscultation: wheezes and diminished lung sounds Cardio no murmurs Rate: tachycardic GI normal to inspection, nondistended, normoactive bowel sounds, non-tender and non-distended Palpation: soft; Negative for tender, guarding or rebound tenderness present Back/Spine no CVA tenderness Cervical Spine: Negative for cervical spine tenderness Thoracic Spine / Upper Back: Negative for thoracic spinal tenderness Extremity normal to inspection General Extremety ED: Negative for tenderness Neuro oriented x3 and CN's II-XII intact bilaterally Neuro Narrative: No focal deficits appreciated. Sensorium / Orientation: alert, oriented to person, oriented to place and orientation impaired Motor Exam: strength 5/5 throughout Psych mental status grossly normal Skin no rashes or lesions noted, no wounds and skin turgor normal MDM MDM MDM Narrative Medical decision making narrative: Patient presents with cough and shortness of breath. He is also had fever and chills. Patient was hypoxic on arrival. He was placed on supplemental oxygen. He was given multiple breathing treatments and Solu-Medrol. This did improve his aeration and he was much more comfortable. Blood cultures were obtained given his reported fever. He does not have a significant leukocytosis. Labs are at his baseline. His lactic acid is mildly elevated at 2.1, but I do feel this is more secondary to his global hypoxemia rather than significant infectious process. I was able to go through the patient's records. He does have an abnormal chest x-ray, but has had it since his pleurodesis. Chest x-ray was obtained. There is some pneumonitis, but not significantly changed. There is question of a loculated pneumothorax, but the last time the patient had this, he did have a CTA which I was able to review. This was just a bladder. Patient was covered with broad-spectrum antibiotics. Given his hypoxic respiratory failure, he will be admitted at this time. Impression 1. COPD exacerbation 2. Hypoxic respiratory failure Lab Data Attestation: I reviewed the patient's lab results. Labs: Laboratory Results - last 24 hr 07/09/20 07/09/20 07/09/20 13:55 13:55 13:55 WBC 7.6 RBC 4.90 Hgb 13.1 Hct 43.4 MCV 88.6 MCH 26.7 L MCHC 30.2 L RDW Std Deviation 52.6 H RDW Coeff of Estelita 16.1 H Plt Count 290 MPV 8.6 Immature Gran % (Auto) 0.500 Neut % (Auto) 81.5 H Lymph % (Auto) 5.7 L [place] % (Auto) 10.5 H Eos % (Auto) 1.7 Baso % (Auto) 0.1 Absolute Neuts (auto) 6.2 Absolute Lymphs (auto) 0.43 L Nucleated RBC % 0 Sodium 137 Potassium 3.7 Chloride 103 Carbon Dioxide 29.0 Anion Gap 5 BUN 12 Creatinine 1.01 Estim Creat Clear Calc 65.24 Est GFR (MDRD) Af Amer 92 Est GFR (MDRD) Non-Af 76 BUN/Creatinine Ratio 11.9 Glucose 118 H Lactic Acid 2.1 H* Calcium 9.2 Total Bilirubin 0.70 AST 72 H ALT 72 H Alkaline Phosphatase 114 Troponin I < 0.015 B-Natriuretic Peptide Total Protein 7.8 Albumin 2.7 L Globulin 5.1 H Albumin/Globulin Ratio 0.5 L 07/09/20 13:55 WBC RBC Hgb Hct MCV MCH MCHC RDW Std Deviation RDW Coeff of Estelita Plt Count MPV Immature Gran % (Auto) Neut % (Auto) Lymph % (Auto) [place] % (Auto) Eos % (Auto) Baso % (Auto) Absolute Neuts (auto) Absolute Lymphs (auto) Nucleated RBC % Sodium Potassium Chloride Carbon Dioxide Anion Gap BUN Creatinine Estim Creat Clear Calc Est GFR (MDRD) Af Amer Est GFR (MDRD) Non-Af BUN/Creatinine Ratio Glucose Lactic Acid Calcium Total Bilirubin AST ALT Alkaline Phosphatase Troponin I B-Natriuretic Peptide 200.4 H Total Protein Albumin Globulin Albumin/Globulin Ratio Radiography Chest X-Ray - ED: 1 View, Read by ED Physician, Read by Radiologist, Unchanged, Heart, Chronic Changes, Left Infiltrate and Right Effusion Diagnostic Testing: Radiology Impression Chest X-Ray 07/09/20 14:30 IMPRESSION: Stable examination. Electronically Signed: Fernando Sidhu MD at 14:57 EDT , Service support , EKG Initial EKG: Attestation: I personally reviewed and interpreted this EKG as follows: Interpretation: Sinus Tachycardia Prior EKG tracings: available for review Prior: Unchanged Discharge Plan Triage Chief Complaint: Shortness of Breath ED Provider: Miguel Escalona Dx/Rx/DC Orders Prescriptions: No Action (DME) Handicap Placard Qty: 1 RF: 0 Spiriva Respimat 2.5 mcg/actuation mist 2 puff INHALATION Q24H Qty: 1 RF: 6 albuterol sulfate [ProAir HFA] 90 mcg/actuation HFA aerosol inhaler 2 puff INHALATION Q4H PRN (Reason: shortness of breath or wheezing) Qty: 8.5 RF: 6 Dulera 200-5 mcg/actuation HFA aerosol inhaler 2 puff INHALATION BID Qty: 13 RF: 6 atorvastatin 10 MG tablet 20 mg PO QHS RF: 0 lorazepam 0.5 MG tablet 1 mg PO TID PRN PRN (Reason: Anxiety) RF: 0 nitroglycerin 0.4 MG tablet 0.4 mg SL PRN PRN (Reason: Chest Pain) RF: 0 aspirin 81 MG tablet,chewable 81 mg PO DAILY@0800 RF: 0 clopidogrel 75 MG tablet 75 mg PO DAILY RF: 0 albuterol sulfate 2.5 mg /3 mL (0.083 %) solution for nebulization 2.5 mg INHALATION Q4H PRN (Reason: J44.9 COPD) Qty: 120 RF: 6 Primary Care Provider: Dillan Cummins
[2020-07-09] MEDS: Ipratropium/Albuterol Sulfate 3 ML AMPUL.NEB INHALATION ×2 (14:02→19:40)
[2020-07-09] MEDS: MethylPREDNISolone 125 MG/2 ML Vial IV (14:02)
[2020-07-09] MEDS: Albuterol 2.5 MG/3 ML VIAL.NEB. INHALATION ×3 (14:02→14:30)
[2020-07-09 14:18] LABS: Absolute Lymphocyte Count 0.43 X10^3/uL (0.83-4.51); Absolute Neutrophil Count 6.2 X10^3/uL (2.0-7.7); Basophil# 0.01 X10^3/uL; Basophil% 0.1 % (0-1); Eosinophil# 0.13 X10^3/uL; Eosinophils% 1.7 % (0-5); Hematocrit 43.4 % (40-54); Hemoglobin 13.1 g/dL (13.0-16.5); Lymphocyte # 0.43 X10^3/ul (0.83-4.51); Lymphocyte % 5.7 % (19-41); Mean Corp Hgb Conc 30.2 g/dL (32-36); Mean Corpuscular Hgb 26.7 pg (27.0-32.0); Mean Corpuscular Volume 88.6 fL (80-94); Mean Platelet Vol. 8.6 fl (6.2-12.0); Monocyte# 0.79 X10^3/uL; Monocyte% 10.5 % (0-10); NRBC Flagged by Analyzer 0 % (0-5); Neutrophil # 6.15 X10^3/uL (2.7-7.7); Neutrophil % 81.5 % (47-70); POSITIVE DIFFERENTIAL YES; Platelet Count 290 K/mm3 (150-450); RBC Distribution Width CV 16.1 % (11.6-14.6); RBC Distribution Width SD 52.6 fl (35.1-43.9); White Blood Count 7.6 K/mm3 (4.4-11.0)
[2020-07-09 14:19] LABS: Differential Indicated SCAN CRITERIA MET
[2020-07-09] MEDS: Acetaminophen 500 MG Tablet 1000 MG PO (14:29)
--- NOTE | 2020-07-09 14:30 | RAD_ITS ---
STUDY: X-RAY CHEST REASON FOR EXAM: Male, 79 years old. Sob TECHNIQUE: Single AP portable view of the chest. COMPARISON: Comparison is made with prior study of 04/05/2020. FINDINGS: EKG electrodes are seen. Stable pleural-parenchymal changes in the left hemithorax with findings suggestive of scarring at the left lung base and loculated pneumothorax. Mild increased markings at the right lung base with blunting of the right costo phrenic angle. This is unchanged as well. Sternal cerclage wires and vascular clips are present from a prior sternotomy and coronary artery bypass graft procedure (CABG). Normal mediastinum and pepito. Normal visualized pulmonary arteries. There is atherosclerotic calcification of the aortic arch with tortuosity. Normal visualized thoracic spine. There is degenerative osteoarthritis of the bilateral shoulders. There is no demonstrated abnormality of the visualized soft tissue structures of the upper abdomen. RAD/Chest 1 View (Portable) IMPRESSION: Stable examination. Electronically Signed: Fernando Sidhu MD at 14:57 EDT , Service support ,
[2020-07-09 14:36] LABS: ALB/GLOB Ratio 0.5 RATIO (0.9-2.4); AST(SGOT) 72 U/L (15-37); Alanine Aminotransfer ALT/SGPT 72 U/L (16-61); Albumin, Serum 2.7 g/dL (3.2-5.0); Alkaline Phosphatase 114 U/L (45-117); Anion Gap 5 (5-15); BNP,B-Type NATRIURETIC PEPTIDE 200.4 pg/mL (0-100); BUN 12 mg/dL (7-18); BUN/Creat Ratio 11.9 RATIO (10-20); Calcium,Total 9.2 mg/dL (8.5-10.1); Chloride 103 mmol/L (98-107); Creatinine, Serum 1.01 mg/dL (0.70-1.30); EST Glomerular Filtration Rate 76 mL/min (>60); Est Glom Filt Rate - Afr Amer 92 mL/min (>60); Estimated Creatinine Clearance 65.24 ml/min; Globulin 5.1 g/dL (2.2-4.2); Glucose 118 mg/dL (74-106); Potassium 3.7 mmol/L (3.5-5.1); Protein, Total 7.8 g/dL (6.4-8.2); Sodium Level 137 mmol/L (136-145)
[2020-07-09 14:43] LABS: Lactic Acid 2.1 mmol/L (0.4-1.9)
[2020-07-09] MEDS: Ceftriaxone 1 GM/50 ML BAG IV (14:58)
--- NOTE | 2020-07-09 15:27 | PCM.HP.STD ---
[facility] - General General Date of Admission: 07/09/20 Chief Complaint: Shortness of breath. [facility] Narrative OSWALDO MENDIOLA, is a 79 M with past medical history as mentioned above presented to the emergency room because of worsening shortness of breath. His symptoms started 4 days ago with shortness of breath, exertional, increased with activity, minimal relief with rest, associated with productive cough with yellow mucus. mentioned that he had a fever of 101.4 Fahrenheit 2 days ago, she gave him Tylenol and his temperature did come down. Since then, he had no more fever. Patient does have a history of COPD and he has been on home oxygen at 2 L mainly at night. He reported chest pain upon coughing. He received his COVID-19 vaccine around 6 weeks ago. Recently, patient was found to have lung mass, underwent bronchoscopy and the biopsy that was complicated by pneumothorax and he had chest tube placed. Patient recovered but on April,, he was found to have loculated pleural effusion and he was transferred back to [facility]. He had CT scan chest at that time and he was found to have large left side bulla. For the cancer, he underwent resection of his lung and radiation and he has been following up with oncology since then. In the emergency department, patient was tachycardic, hypoxic, dyspneic and tachypneic, blood pressure stable, pulse ox was 98% on 6 L of oxygen. Pulse ox was 71% on room air. Routine blood work was unremarkable. Lactic acid was 2.1 which is likely because of hypoxia. EKG revealed sinus tachycardia, no acute ischemic changes. COVID-19 antigen was negative. Chest x-ray revealed left lung base scarring, chronic scarring bilaterally and they mention about loculated left lung pneumothorax. As mentioned above, patient had CT scan chest on April 06, 2020 that revealed large left-sided bulla. Patient is being admitted for acute COPD exacerbation and acute hypoxic respiratory failure. [facility] Medical History (Updated 07/09/20 @ 15:[address] Raul Claudio MD) Benign essential HTN Bronchiectasis CAD (coronary artery disease) Chronic hypoxemic respiratory failure HLD (hyperlipidemia) No pertinent family history Nocturnal hypoxemia Prostate CA Stage 3 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 Tobacco dependence in remission Home Medications aspirin 81 mg PO DAILY@0800 12/29/14 [History Last Taken 04/19/16] nitroglycerin 0.4 mg SL PRN PRN 12/29/14 [History Last Taken Unknown] clopidogrel 75 mg PO DAILY 04/19/16 [History Last Taken 01/19/20] albuterol sulfate 90 mcg/actuation aerosol inhaler 2 puff INHALATION Q4H PRN #8.5 g 02/08/20 [Rx Last Taken Unknown] albuterol sulfate 2.5 mg INHALATION Q4H PRN #120 vial 02/14/20 [Rx Last Taken Unknown] atorvastatin [Lipitor] 20 mg PO DAILY 07/09/20 [History Last Taken 07/08/20] lorazepam [Ativan] 0.5 - 1 mg PO TID PRN 07/09/20 [History Last Taken 07/09/20] mometasone-formoterol [Dulera] 2 puff INHALATION BID 07/09/20 [History Last Taken 07/09/20] [id number]-[id number]-guaifen [Tylenol Cold and Flu Severe] 5 - 10 ml PO BID 07/09/20 [History Last Taken 07/09/20] polyethylene glycol 3350 [Miralax] 17 g PO BID 07/09/20 [History Last Taken 07/09/20] tiotropium bromide [Spiriva Respimat] 2 puff INHALATION Q24H 07/09/20 [History Last Taken 07/09/20 13:00] Allergy/AdvReac Type Severity Reaction Status Date / Time isosorbide [From Imdur] Allergy Other-patient Verified 07/09/20 13:38 blacks out Family History Other No pertinent family history Surgical History (Updated 07/09/20 @ 15:[address] Raul Claudio MD) Hx of CABG No pertinent past surgical history Social History Smoking Status: Former smoker Tobacco: How many years used: 45 Electronic Cigarette Use: not used how long ago did patient quit smokin, second hand exposure: Yes alcohol intake: never substance use type: does not use ROS Constitutional Constitutional: Reports fever(s); Denies anorexia, chills, fatigue or malaise Eyes Eyes: Denies blurry vision, change in eye color, change in vision, double vision or eye pain ENT HEENT: Denies ear pain, epistaxis, headache(s), nasal congestion, post nasal drip or sore throat Cardiovascular Cardiovascular: Denies chest pain, dyspnea on exertion, edema, lightheadedness, orthopnea, palpitations, paroxysmal nocturnal dyspnea or syncope Respiratory/Chest Respiratory/Chest: Reports cough, dyspnea, productive cough, shortness of breath with exertion and wheezing; Denies hemoptysis or shortness of breath at rest Gastrointestinal Gastrointestinal: Denies abdominal pain, constipation, diarrhea, hematemesis, hematochezia, melena, nausea or vomiting Genitourinary Genitourinary: Denies burning urination, dysuria, hematuria, urinary hesitancy or urinary urgency Musculoskeletal Musculoskeletal: Denies arthralgias, back pain, joint pain, joint swelling, myalgias or neck pain Neurologic Neurologic: Denies confusion, dizziness, focal weakness, headache(s), numbness, paresthesias, seizures, tingling or tremor(s) Psychiatric Psychiatric: Denies anxiety, depression, hallucinations, homicidal ideation or suicidal ideation Endocrine Endocrinology: Denies change in body appearance, cold intolerance, heat intolerance, polydipsia or polyuria Hematologic/Lymphatic Hematologic/Lymphatic: Denies easy bleeding, easy bruising or lymphadenopathy Allergic/Immunologic Allergic/Immunologic: Denies itchy eyes, rhinitis, throat swelling, tongue swelling, hives, urticaria or wheezing Vital Signs Vital Signs Vital Signs: 07/09/20 13:35 07/09/20 13:36 07/09/20 13:38 Temperature 99.9 F H 99.9 F H Temperature Source Temporal Temporal Pulse Rate 117 H 131 H 131 H Respiratory Rate 28 H 24 H 24 H Respiratory Effort Respiratory Pattern Blood Pressure 156/78 H 156/78 H Blood Pressure Mean 104 104 Pulse Ox 98 71 98 Oxygen Delivery Method Nasal Cannula Room Air Nasal Cannula Oxygen Flow Rate (L/min) 6 07/09/20 13:48 07/09/20 13:52 07/09/20 14:06 Temperature Temperature Source Pulse Rate 111 H Respiratory Rate 28 H Respiratory Effort Short of Breath Labored Accessory Muscle Use Respiratory Pattern Tachypnea Tachypnea Blood Pressure Blood Pressure Mean Pulse Ox 98 Oxygen Delivery Method Nasal Cannula Nasal Cannula Oxygen Flow Rate (L/min) 6 07/09/20 14:35 07/09/20 14:38 07/09/20 15:00 Temperature 98.6 F 98.6 F 98.2 F Temperature Source Oral Oral Oral Pulse Rate 120 H 120 H 115 H Respiratory Rate 25 H 25 H 22 H Respiratory Effort Respiratory Pattern Blood Pressure 153/78 H 153/78 H 125/75 H Blood Pressure Mean 103 103 91 Pulse Ox 99 99 98 Oxygen Delivery Method Nasal Cannula Nasal Cannula Nasal Cannula Oxygen Flow Rate (L/min) 6 6 6 07/09/20 15:17 Temperature 98.7 F Temperature Source Oral Pulse Rate 117 H Respiratory Rate 22 H Respiratory Effort Respiratory Pattern Blood Pressure 125/75 H Blood Pressure Mean 91 Pulse Ox 98 Oxygen Delivery Method Nasal Cannula Oxygen Flow Rate (L/min) 6 Physical Exam Const alert, oriented x3 and no limitations Constitutional Narrative: Dyspneic and tachypneic. General Appearance: cooperative, comfortable and well kempt HEENT normocephalic, head/scalp atraumatic and moist oral mucous membranes Head and Scalp: normocephalic and atraumatic Eyes PERRL, EOMs intact bilaterally, conjunctivae normal and no scleral icterus General Eye: normal appearance of both eyes Periorbital: periorbital findings normal Neck no lymphadenopathy, supple, no meningeal signs, no JVD and no carotid bruits General: trachea midline Thyroid: thyroid normal Resp normal air movement Resp Narrative: Markedly decreased breath sounds bilateral, bilateral rhonchi, occasional wheezes. Dyspneic and tachypneic. Cardio regular rate, regular rhythm, S1 normal heart sound, S2 normal heart sound, no murmurs and no JVD Cardio Narrative: Tachycardia. Peripheral Pulses: pulses 2+ throughout GI normal to inspection, nondistended, normoactive bowel sounds, soft to palpation, non-tender and non-distended; Negative for hepatosplenomegaly Auscultation: normoactive bowel sounds Extremity normal to inspection and full ROM Extremity Narrative: Trace edema. Skin no rashes or lesions noted, no wounds and no petechiae Neuro oriented x3, CN's II-XII intact bilaterally and moves all extremities Sensorium / Orientation: alert Speech: speech normal Motor Exam: strength 5/5 throughout Psych mental status grossly normal, affect normal and denies hallucinations Lab / Micro Data Result Diagrams: 07/09/20 13:55 07/09/20 13:55 Labs: Laboratory Results - last 24 hr 07/09/20 07/09/20 07/09/20 13:55 13:55 13:55 WBC 7.6 RBC 4.90 Hgb 13.1 Hct 43.4 MCV 88.6 MCH 26.7 L MCHC 30.2 L RDW Std Deviation 52.6 H RDW Coeff of Estelita 16.1 H Plt Count 290 MPV 8.6 Immature Gran % (Auto) 0.500 Neut % (Auto) 81.5 H Lymph % (Auto) 5.7 L [place] % (Auto) 10.5 H Eos % (Auto) 1.7 Baso % (Auto) 0.1 Absolute Neuts (auto) 6.2 Absolute Lymphs (auto) 0.43 L Nucleated RBC % 0 Sodium 137 Potassium 3.7 Chloride 103 Carbon Dioxide 29.0 Anion Gap 5 BUN 12 Creatinine 1.01 Estim Creat Clear Calc 65.24 Est GFR (MDRD) Af Amer 92 Est GFR (MDRD) Non-Af 76 BUN/Creatinine Ratio 11.9 Glucose 118 H Lactic Acid 2.1 H* Calcium 9.2 Total Bilirubin 0.70 AST 72 H ALT 72 H Alkaline Phosphatase 114 Troponin I < 0.015 B-Natriuretic Peptide Total Protein 7.8 Albumin 2.7 L Globulin 5.1 H Albumin/Globulin Ratio 0.5 L 07/09/20 13:55 WBC RBC Hgb Hct MCV MCH MCHC RDW Std Deviation RDW Coeff of Estelita Plt Count MPV Immature Gran % (Auto) Neut % (Auto) Lymph % (Auto) [place] % (Auto) Eos % (Auto) Baso % (Auto) Absolute Neuts (auto) Absolute Lymphs (auto) Nucleated RBC % Sodium Potassium Chloride Carbon Dioxide Anion Gap BUN Creatinine Estim Creat Clear Calc Est GFR (MDRD) Af Amer Est GFR (MDRD) Non-Af BUN/Creatinine Ratio Glucose Lactic Acid Calcium Total Bilirubin AST ALT Alkaline Phosphatase Troponin I B-Natriuretic Peptide 200.4 H Total Protein Albumin Globulin Albumin/Globulin Ratio Micro: Microbiology 07/09/20 14:11 SARS-CoV-2 Antigen (Rapid) - Final Interface Orders Radiology Impression Chest X-Ray 07/09/20 14:30 IMPRESSION: Stable examination. Electronically Signed: Fernando Sidhu MD at 14:57 EDT , Service support , Assessment & Plan Assessment/Plan (1) Acute and chronic respiratory failure with hypoxia: (2) COPD with acute exacerbation: (3) Squamous cell carcinoma of left lung: (4) Stage 3 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: (5) Chronic hypoxemic respiratory failure: (6) Benign essential HTN: (7) HLD (hyperlipidemia): QUALIFIERS: Hyperlipidemia type: unspecified Qualified Code(s): E78.5 - Hyperlipidemia, unspecified (8) CAD (coronary artery disease): QUALIFIERS: Associated angina: angina presence unspecified PLAN: This is a 79 years old male patient presented to the emergency room because of worsening shortness of breath, cough and wheezing as well as subjective fever and is being admitted for acute COPD exacerbation with acute on chronic hypoxic respiratory failure. #1 acute COPD exacerbation: Chest x-ray reviewed as above. Currently, patient is on 6 L of oxygen. COVID-19 antigen was negative. Plan: Admit to PCU, cardiac monitoring, DuoNeb every 4 hours, albuterol as needed, IV Solu-Medrol, IV Levaquin, incentive spirometer, chest physiotherapy, repeat CBC and BMP tomorrow morning, PT OT evaluation and treatment. #2 acute on chronic hypoxic respiratory failure: Normally, he is on oxygen at 2 L mainly at night. Currently, he is on 6 L. Plan for bronchodilators, IV steroids, antibiotics, wean off oxygen as tolerated. #3 lactic acidosis: Likely due to hypoxemia, no evidence of infection. Plan to repeat lactic acid in 3 hours. #4 stage III severe COPD/chronic respiratory failure: Plan as above. #5 CAD status post CABG: EKG reviewed, no acute changes. Troponin was negative. Continue aspirin, statins and Plavix. #6 squamous cell carcinoma of the lung: Status post lung resection and radiation therapy. He is following up with Dr. Ball as outpatient. #7 hypertension: Blood pressure stable, he is not on any antihypertensive medications at this time. #8 CODE STATUS: Full code, discussed with the patient. #9 DVT prophylaxis consult Lovenox. This note was generated with [employer]ERT[employer] software. It may contain incorrect words, spelling, and punctuation that were not noted in checking the note before signing. Visit Charges Inpatient E&M: 18796 Init Hosp L3
[2020-07-09 18:08] LABS: Reflex Lactate? Y
[2020-07-09 19:42] LABS: Lactic Acid 3.5 mmol/L (0.4-1.9)
[2020-07-09] MEDS: 0.9% Normal Saline 1,000 ML 150 ML IV (20:08)
[2020-07-09] MEDS: Atorvastatin Calcium 20 MG Tablet PO (21:27)
[2020-07-09] MEDS: Polyethylene Glycol 3350 17 GM PACKET PO (21:27)
[2020-07-09] MEDS: Aspirin 81 MG TAB.CHEW PO (21:29)
[2020-07-10] VITALS (14 sets, daily range): BP systolic 119–133; BP diastolic 66–74; PULSE 40–100; RESP 16–20; TEMP 36.3–37.1; O2SAT 84–98; BMI 24.9
[2020-07-10] MEDS: 0.9% Normal Saline 1,000 ML 150 ML IV (01:58)
[2020-07-10 05:59] LABS: Absolute Lymphocyte Count 0.18 X10^3/uL (0.83-4.51); Absolute Neutrophil Count 4.2 X10^3/uL (2.0-7.7); Hematocrit 34.4 % (40-54); Hemoglobin 10.4 g/dL (13.0-16.5); Lymphocyte # 0.18 X10^3/ul (0.83-4.51); Mean Corp Hgb Conc 30.2 g/dL (32-36); Mean Corpuscular Hgb 26.6 pg (27.0-32.0); Mean Platelet Vol. 8.8 fl (6.2-12.0); Monocyte# 0.11 X10^3/uL; Monocyte% 2.4 % (0-10); NRBC Flagged by Analyzer 0 % (0-5); Neutrophil # 4.19 X10^3/uL (2.7-7.7); Neutrophil % 92.9 % (47-70); POSITIVE DIFFERENTIAL YES; Platelet Count 224 K/mm3 (150-450); RBC Distribution Width CV 15.9 % (11.6-14.6); RBC Distribution Width SD 51.1 fl (35.1-43.9); Red Blood Count 3.91 M/mm3 (4.6-6.2); White Blood Count 4.5 K/mm3 (4.4-11.0)
[2020-07-10 06:07] LABS: Differential Indicated SCAN CRITERIA MET
[2020-07-10 06:27] LABS: Lactic Acid 1.6 mmol/L (0.4-1.9)
[2020-07-10 06:31] LABS: ALB/GLOB Ratio 0.5 RATIO (0.9-2.4); AST(SGOT) 92 U/L (15-37); Alanine Aminotransfer ALT/SGPT 85 U/L (16-61); Albumin, Serum 2.1 g/dL (3.2-5.0); Alkaline Phosphatase 92 U/L (45-117); Anion Gap 5 (5-15); BUN 14 mg/dL (7-18); BUN/Creat Ratio 19.1 RATIO (10-20); Calcium,Total 8.4 mg/dL (8.5-10.1); Chloride 107 mmol/L (98-107); Creatinine, Serum 0.73 mg/dL (0.70-1.30); EST Glomerular Filtration Rate 110 mL/min (>60); Est Glom Filt Rate - Afr Amer 133 mL/min (>60); Estimated Creatinine Clearance 65.89 ml/min; Glucose 173 mg/dL (74-106); Potassium 3.9 mmol/L (3.5-5.1); Protein, Total 6.1 g/dL (6.4-8.2); Sodium Level 140 mmol/L (136-145)
[2020-07-10] MEDS: Ipratropium/Albuterol Sulfate 3 ML AMPUL.NEB INHALATION ×4 (07:08→18:53)
[2020-07-10] MEDS: Aspirin 81 MG TAB.CHEW PO (09:29)
[2020-07-10] MEDS: Clopidogrel Bisulfate 75 MG Tablet PO (09:30)
[2020-07-10] MEDS: Enoxaparin 40 MG/0.4 ML Syringe SC (09:30)
--- NOTE | 2020-07-10 12:10 | CASEMGMT ---
GILMAR DIAZ Assessment: Face to Face with pt for initial transition planning/care coordination assessment. GILMAR DIAZ introduced self and role at [facility], pt voices understanding and consents to assessment. Pt is A/O x4 and answers all questions appropriately at this time. Pt lying in bed with O2 on in no distress, at bedside. Care providers, pharmacy, and demographics verified/updated. Admitting Dx: acute COPD exac, a on c hyproxic resp failure PCP: [facility] Specialists: Dilip, cardio; Hossein, uro; Rajinder, pulm; Pete, vascular; Lizzy, onc Preferred Pharmacy: [facility] Insurance: Elle ROJAS Prescription Benefit: yes LW/HPOA: Pt has on file LW/DPOA. DPOA is Serenity Corley. LNOK: Serenity Corley, Living Arrangements: Pt lives in a single story house with one step to enter with . Pt reports he is I in ADL's and denies concerns at home. Transportation: Pt drives self and denies concerns with transportation. DME/HHC/SNF: Pt has a cane, walker, shower chair, grab bars and O2 at home. Reports he uses 2L at HS. TC to [facility], spoke to Amy, pt rx is for 2L at hs and with exertion. Pt denies previous HHC or SNF stays. Pt states no concerns with going home at time of dc. Pt states no further concerns/needs. CM to follow O2 needs. Advised pt to ask CM if any further question/concerns/needs arise, voices understanding. Pt Goal: Home Plan: Home with support, follow O2.
--- NOTE | 2020-07-10 14:27 | PCM.NTREPORT ---
Nutrition Therapy Report - History Nutrition Services has been consulted to:: Manage nutrient details of diet order Current diet / nutrition support order:: cardiac - Anthropometric Measurements Height:: 5 ft 11 in Weight:: 81 kg Body Mass Index (BMI):: 24.9 - Relevant Labs Relevant Labs:: RBC 3.91 M/mm3 (4.6-6.2) L 07/10/20 05:46 Hgb 10.4 g/dL (13.0-16.5) L 07/10/20 05:46 Hct 34.4 % (40-54) L 07/10/20 05:46 MCH 26.6 pg (27.0-32.0) L 07/10/20 05:46 MCHC 30.2 g/dL (32-36) L 07/10/20 05:46 RDW Std Deviation 51.1 fl (35.1-43.9) H 07/10/20 05:46 RDW Coeff of Estelita 15.9 % (11.6-14.6) H 07/10/20 05:46 Neut % (Auto) 92.9 % (47-70) H 07/10/20 05:46 Lymph % (Auto) 4.0 % (19-41) L 07/10/20 05:46 [place] % (Auto) 10.5 % (0-10) H 07/09/20 13:55 Absolute Lymphs (auto) 0.18 X10^3/uL (0.83-4.51) L 07/10/20 05:46 Glucose 173 mg/dL (74-106) H 07/10/20 05:46 Lactic Acid 3.5 mmol/L (0.4-1.9) H* 07/09/20 19:06 Calcium 8.4 mg/dL (8.5-10.1) L 07/10/20 05:46 AST 92 U/L (15-37) H 07/10/20 05:46 ALT 85 U/L (16-61) H 07/10/20 05:46 B-Natriuretic Peptide 200.4 pg/mL (0-100) H 07/09/20 13:55 Total Protein 6.1 g/dL (6.4-8.2) L 07/10/20 05:46 Albumin 2.1 g/dL (3.2-5.0) L 07/10/20 05:46 Globulin 5.1 g/dL (2.2-4.2) H 07/09/20 13:55 Albumin/Globulin Ratio 0.5 RATIO (0.9-2.4) L 07/10/20 05:46 - Assessment Food / Nutrition-Related History:: See in conjunction w/ RLaly Salgado, biomedical engineering internship. Pt reports that he has been eating good but not as much as he used to. Reports consuming at least 50% of his meals. Pt CBW is 178# and weighed 208# in January 2020-30#/14% wt loss x 6 months. Pt reports that he lost the 30# unintentionally and that it was related to his CABG last year. - Nutrition Diagnosis Problem / Etiology / Signs & Symptoms (PES):: severe, chronic malnutrition r/t inadequate energy intake s/p recent surgeries/hospitalizations as evidenced by estimated PO intake meeting <75% of estimated nutritional needs x 6 months, unintentional wt loss of 30#/14% x 6 months Evidence of Malnutrition Exists:: Yes Severe PCM:: Chronic Illness - Nutrition Intervention Nutrition Prescription:: 2,000-2,200 kcal/day (RMR x 1.3). Protein 65-80g/day (0.8-1.0g/1kg). Fluid 2000mL/day (25mL/1kg) - Food / Nutrient Delivery Interventions Summary of nutrition intervention:: Talked to the pt about how adequate protein intake can assist w/ maintaining wt and rebuilding strength. Talked to pt about increasing protein consumption. Agreeable to magic cup w/ dinner for additional calories/protein if consumed. States he was able to eat 100% of lunch this date. Nutrition support ordered as / adjusted to:: continue cardiac diet; will add vanilla magic cup w/ dinner for additional calories/protein if consumed. Nutrition education provided?: Yes - MNT Monitoring Further MNT monitoring and evaluation required?: Yes MNT Follow-up in:: 3-5 days
--- NOTE | 2020-07-10 16:36 | PN.HOSP_ITS ---
Subjective Subjective Breathing better. Only on oxygen at home. Sx began after he was in a damp place for sustained period of time. Objective Data Objective Data Vital Signs: Vital Signs Temp Pulse Resp BP Pulse Ox 37.1 C 85 20 H 119/68 97 07/10/20 14:36 07/10/20 15:00 07/10/20 15:00 07/10/20 14:36 07/10/20 14:36 Oxygen Flow Rate (L/min) 2 Oxygen Delivery Method Nasal Cannula Weight: 81 kg Body Mass Index (BMI) 24.9 Intake & Output: Intake and Output for Last 24 Hours 07/08/20 07/09/20 07/10/20 23:59 23:59 23:59 Intake Total 305 / 305 2215 / 2215 Balance 305 / 305 2215 / 2215 Lab / Micro Data Result Diagrams: 07/10/20 05:46 07/10/20 05:46 Labs: Laboratory Results - last 24 hr 07/09/20 07/10/20 07/10/20 19:06 05:46 05:46 WBC 4.5 RBC 3.91 L Hgb 10.4 L Hct 34.4 L MCV 88.0 MCH 26.6 L MCHC 30.2 L RDW Std Deviation 51.1 H RDW Coeff of Estelita 15.9 H Plt Count 224 MPV 8.8 Immature Gran % (Auto) 0.700 Neut % (Auto) 92.9 H Lymph % (Auto) 4.0 L [place] % (Auto) 2.4 Eos % (Auto) 0.0 Baso % (Auto) 0.0 Absolute Neuts (auto) 4.2 Absolute Lymphs (auto) 0.18 L Nucleated RBC % 0 Sodium 140 Potassium 3.9 Chloride 107 Carbon Dioxide 28.0 Anion Gap 5 BUN 14 Creatinine 0.73 Estim Creat Clear Calc 65.89 Est GFR (MDRD) Af Amer 133 Est GFR (MDRD) Non-Af 110 BUN/Creatinine Ratio 19.1 Glucose 173 H Lactic Acid 3.5 H* Calcium 8.4 L Total Bilirubin 0.30 AST 92 H ALT 85 H Alkaline Phosphatase 92 Total Protein 6.1 L Albumin 2.1 L Globulin 4.0 Albumin/Globulin Ratio 0.5 L 07/10/20 05:46 WBC RBC Hgb Hct MCV MCH MCHC RDW Std Deviation RDW Coeff of Estelita Plt Count MPV Immature Gran % (Auto) Neut % (Auto) Lymph % (Auto) [place] % (Auto) Eos % (Auto) Baso % (Auto) Absolute Neuts (auto) Absolute Lymphs (auto) Nucleated RBC % Sodium Potassium Chloride Carbon Dioxide Anion Gap BUN Creatinine Estim Creat Clear Calc Est GFR (MDRD) Af Amer Est GFR (MDRD) Non-Af BUN/Creatinine Ratio Glucose Lactic Acid 1.6 Calcium Total Bilirubin AST ALT Alkaline Phosphatase Total Protein Albumin Globulin Albumin/Globulin Ratio Micro: Microbiology 07/09/20 14:11 Interface Orders SARS-CoV-2 Antigen (Rapid) - Final Physical Exam Const alert and no apparent distress HEENT Head and Scalp: normocephalic Eyes PERRL Neck no lymphadenopathy Resp normal respiratory effort and clear to auscultation bilaterally Cardio regular rate, regular rhythm, S1 normal heart sound and S2 normal heart sound GI normal to inspection, nondistended, normoactive bowel sounds, non-tender and non-distended Extremity normal to inspection Neuro Sensorium / Orientation: awake and alert Psych affect normal Assessment & Plan Assessment/Plan (1) Acute and chronic respiratory failure with hypoxia: (2) COPD with acute exacerbation: (3) Squamous cell carcinoma of left lung: (4) Stage 3 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: (5) Chronic hypoxemic respiratory failure: (6) Benign essential HTN: (7) HLD (hyperlipidemia): QUALIFIERS: Hyperlipidemia type: unspecified Qualified Code(s): E78.5 - Hyperlipidemia, unspecified (8) CAD (coronary artery disease): QUALIFIERS: Associated angina: angina presence unspecified PLAN: This is a 79 years old male patient presented to the emergency room because of worsening shortness of breath, cough and wheezing as well as subjective fever and is being admitted for acute COPD exacerbation with acute on chronic hypoxic respiratory failure. #1 acute COPD exacerbation: * Improving * Continue methypred and BDs * on empiric LVQ. consider DC abx if BCx negative #2 acute on chronic hypoxic respiratory failure: * improving * Plan for bronchodilators, IV steroids, antibiotics, wean off oxygen as tolerated. #3 lactic acidosis: * 2/2 hypoxemia, * no additional work up #4 stage III severe COPD/chronic respiratory failure: Plan as above. #5 CAD status post CABG: EKG reviewed, no acute changes. Troponin was negative. Continue aspirin, statins and Plavix. #6 squamous cell carcinoma of the lung: Status post lung resection and radiation therapy. He is following up with Dr. Ball as outpatient. #7 hypertension: Blood pressure stable, he is not on any antihypertensive medications at this time. #8 CODE STATUS: Full code, discussed with the patient. #9 DVT prophylaxis Lovenox. Visit Charges Inpatient E&M: 61744 Subs Hosp L2
[2020-07-10] MEDS: Atorvastatin Calcium 20 MG Tablet PO (22:01)
[2020-07-10] MEDS: 0.9% Saline Lock 10 ML Syringe IV (22:06)
[2020-07-11] VITALS (15 sets, daily range): BP systolic 121–140; BP diastolic 70–79; PULSE 75–104; RESP 16–22; TEMP 36.3–36.8; O2SAT 88–97
[2020-07-11] MEDS: 0.9% Saline Lock 10 ML Syringe IV ×2 (05:48→13:56)
[2020-07-11 06:59] LABS: Absolute Lymphocyte Count 0.32 X10^3/uL (0.83-4.51); Basophil# 0.01 X10^3/uL; Basophil% 0.1 % (0-1); Hematocrit 38.5 % (40-54); Hemoglobin 11.8 g/dL (13.0-16.5); Lymphocyte # 0.32 X10^3/ul (0.83-4.51); Mean Corp Hgb Conc 30.6 g/dL (32-36); Mean Corpuscular Hgb 27.3 pg (27.0-32.0); Mean Corpuscular Volume 88.9 fL (80-94); Mean Platelet Vol. 9.2 fl (6.2-12.0); Monocyte# 0.26 X10^3/uL; Monocyte% 2.4 % (0-10); NRBC Flagged by Analyzer 0 % (0-5); Neutrophil # 9.97 X10^3/uL (2.7-7.7); Neutrophil % 93.6 % (47-70); POSITIVE DIFFERENTIAL YES; Platelet Count 346 K/mm3 (150-450); RBC Distribution Width CV 16.2 % (11.6-14.6); RBC Distribution Width SD 53.3 fl (35.1-43.9); Red Blood Count 4.33 M/mm3 (4.6-6.2); White Blood Count 10.7 K/mm3 (4.4-11.0)
[2020-07-11 07:15] LABS: Differential Indicated SCAN CRITERIA MET
[2020-07-11 07:26] LABS: Anion Gap 8 (5-15); BUN 20 mg/dL (7-18); BUN/Creat Ratio 24.5 RATIO (10-20); Calcium,Total 9.1 mg/dL (8.5-10.1); Chloride 108 mmol/L (98-107); Creatinine, Serum 0.82 mg/dL (0.70-1.30); EST Glomerular Filtration Rate 97 mL/min (>60); Est Glom Filt Rate - Afr Amer 117 mL/min (>60); Estimated Creatinine Clearance 80.35 ml/min; Glucose 145 mg/dL (74-106); Sodium Level 141 mmol/L (136-145)
[2020-07-11] MEDS: Ipratropium/Albuterol Sulfate 3 ML AMPUL.NEB INHALATION ×3 (07:28→19:26)
[2020-07-11] MEDS: Clopidogrel Bisulfate 75 MG Tablet PO (09:23)
[2020-07-11] MEDS: Enoxaparin 40 MG/0.4 ML Syringe SC (09:23)
[2020-07-11] MEDS: Aspirin 81 MG TAB.CHEW PO (09:23)
--- NOTE | 2020-07-11 10:12 | PCM.HP.PAL ---
[facility] - General General Date of Admission: 07/09/20 Chief Complaint: Shortness of breath. [facility] Narrative OSWALDO CORLEY, is a 79 M, PMH as below, who presented to [facility] 07/09/20 with progressive shortness of breath, fever, and productive cough of yellow sputum. Patient has a history of squamous cell carcinoma of the left lung, stage III severe COPD, bronchiectasis, significant remote smoking history, and acute on chronic respiratory failure with hypoxia. Patient had a lung biopsy in January 2020 with complications of post biopsy left hydrocele thorax, loculated along the lateral wall. His repeat CT of the chest 04/06/2020 revealed a large left-sided bulla. He ended up being transferred to [facility] for loculated pleural effusion. He has underwent lung resection and radiation for the lung cancer. Patient follows with Dr. Ball, oncology. He follows with Dr. Yong Calvillo at [facility], last seen 06/13/2020. It was recommended at that time he establish with pulmonary rehab and undergo a repeat 6-minute walk test, however patient declined as he does not want to be committed to utilizing oxygen on a continuous basis. The patient is on triple therapy inhaler regimen with Dulera and Spiriva. Patient has been notably declining overall with generalized weakness and deteriorated respiratory status since his lung resection. Patient was requiring increased supplemental oxygen needs at 6 L. He was admitted to the hospital and treated with IV steroids, IV antibiotics, chest physiotherapy, incentive spirometer, and bronchodilators. As of today, he has been weaned down to baseline of 2 L of oxygen. Saturations are low to mid 90s. EKG showed prolonged QTI. Patient lives at home with , independent in ADLs. Drives self, DME includes cane, walker, shower chair, grab bars, O2 at home. Wears 2 L at baseline, mostly at night. POA is Serenity Corley. Uses [facility] for pharmacy. His Serenity is actually enrolled in palliative care through [facility]. Patient reports he is very bitter from all the complications he has underwent since his lung biopsy. States if the doctors just had left him alone, he would have more quality of life and a longer life. He is quite angry about the situation. States he cannot even take a shower without becoming short of breath and having to take breaks. He used to ambulate from a handicap spot at [employer] and shop for an hour without having to stop. He is no longer able to go get groceries on his own. His quality of life has significantly declined since January 2020. [facility] Medical History (Updated 07/11/20 @ 10:32 by MARY LOU Santana) Benign essential HTN Bronchiectasis CAD (coronary artery disease) Chronic hypoxemic respiratory failure HLD (hyperlipidemia) No pertinent family history Nocturnal hypoxemia Prostate CA Stage 3 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 Tobacco dependence in remission Home Medications aspirin 81 mg PO DAILY@0800 12/29/14 [History Last Taken 07/08/20] nitroglycerin 0.4 mg SL PRN PRN 12/29/14 [History Last Taken 1 Week Ago ~07/02/20] clopidogrel 75 mg PO DAILY 04/19/16 [History Last Taken 07/08/20] albuterol sulfate 90 mcg/actuation aerosol inhaler 2 puff INHALATION Q4H PRN #8.5 g 02/08/20 [Rx Last Taken 07/07/20] albuterol sulfate 2.5 mg INHALATION Q4H PRN #120 vial 02/14/20 [Rx Last Taken 3 Weeks Ago ~06/18/20] atorvastatin [Lipitor] 20 mg PO DAILY 07/09/20 [History Last Taken 07/08/20] guaifenesin [Mucinex] 1,200 mg PO BID 07/09/20 [History Last Taken Unknown] lorazepam [Ativan] 0.5 - 1 mg PO TID PRN 07/09/20 [History Last Taken 07/09/20] mometasone-formoterol [Dulera] 2 puff INHALATION BID 07/09/20 [History Last Taken 07/09/20] qllqzfpfr-[id number]-guaifen [Tylenol Cold and Flu Severe] 5 - 10 ml PO BID 07/09/20 [History Last Taken 07/09/20] polyethylene glycol 3350 [Miralax] 17 g PO BID 07/09/20 [History Last Taken 07/09/20] tiotropium bromide [Spiriva Respimat] 2 puff INHALATION Q24H 07/09/20 [History Last Taken 07/09/20 13:00] Allergy/AdvReac Type Severity Reaction Status Date / Time isosorbide [From Imdur] Allergy Other-patient Verified 07/09/20 13:38 blacks out Family History Other No pertinent family history Surgical History (Updated 07/11/20 @ 10:32 by MARY LOU Santana) Hx of CABG Hx of pneumonectomy No pertinent past surgical history Social History Smoking Status: Former smoker Tobacco: How many years used: 45 Electronic Cigarette Use: not used how long ago did patient quit smokin, second hand exposure: Yes alcohol intake: never substance use type: does not use ROS Constitutional Constitutional: Reports as per HPI, fatigue, weakness and weight loss Eyes Eyes: Denies change in vision ENT HEENT: Reports dry mouth Cardiovascular Cardiovascular: Reports dyspnea on exertion; Denies chest pain, chest pain with activity, nausea or vomiting Respiratory/Chest Respiratory/Chest: Reports cough, dyspnea and shortness of breath at rest; Denies change in mental status, hemoptysis or pain on inspiration Gastrointestinal Gastrointestinal: Denies constipation, diarrhea, hematemesis or hematochezia Genitourinary Genitourinary: Reports none Musculoskeletal Musculoskeletal: Reports back pain; Denies neck pain, tingling or tremors Neurologic Neurologic: Reports other Details: more forgetful ; Denies abnormal speech, focal weakness, memory loss or seizures Psychiatric Psychiatric: Reports anxiety, depression and irritability Endocrine Endocrinology: Reports none Hematologic/Lymphatic Hematologic/Lymphatic: Reports anemia and easy bruising Allergic/Immunologic Allergic/Immunologic: Denies hives Physical Exam Const alert and oriented x3 Constitutional Narrative: conversational dyspnea General Appearance: cooperative and in distress Positive for mild and respiratory Orientation / Consciousness: awake, oriented to person, oriented to place and oriented to time HEENT normocephalic and head/scalp atraumatic Eyes General Eye: normal appearance of both eyes Neck supple General: trachea midline Resp Resp Narrative: pursed lip breathing w/ conversation, using accessory muscles Auscultation: diminished lung sounds Cardio regular rate, regular rhythm, S1 normal heart sound and S2 normal heart sound GI normal to inspection, nondistended, normoactive bowel sounds Extremity no pedal edema General Extremity: Negative for cyanosis Skin no rashes or lesions noted Neuro oriented x3 and CN's II-XII intact bilaterally Psych cooperative Attitude: agitated and other upset that those doctors put me in this position 6 months ago Activity / Motor Behavior: restless Mood & Affect: irritable Thought Process: normal thought process Insight: insight good Judgement: judgement good Assessment & Plan Assessment/Plan (1) Hx of pneumonectomy: (2) TOLENTINO (dyspnea on exertion): (3) Squamous cell carcinoma of left lung: (4) Stage 3 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: (5) Acute and chronic respiratory failure with hypoxia: (6) Bronchiectasis: QUALIFIERS: Bronchiectasis type: uncomplicated Qualified Code(s): J47.9 - Bronchiectasis, uncomplicated (7) Prostate CA: PLAN: 79-year-old with history of squamous cell carcinoma left lung, prostate cancer, severe COPD, chronic hypoxemic respiratory failure, seen today for initial palliative care consultation for symptom management of shortness of breath. ?Significant dyspnea with minimal exertion, discussed palliative care services and chronic disease management. He is wanting to talk things over with his and will give us a call if he is interested in learning more about palliative care. ?In the meantime, patient needs to follow closely with pulmonary medicine Dr. Calvillo and oncology Dr. Ball ?Requesting concentrator for when he leaves the home, has not qualified in the past but refused 6-minute pulse ox. Case management was notified and is working on this. ?Patient may benefit from small doses of oxycodone or Roxanol to assist with reducing shortness of breath and anxiety, however unclear how effective this would be given current situation with bullous and recurrent COPD exacerbations, will f/u as outpatient if patient is agreeable in the future ?Follows with Dr. Catalan for his prostate cancer, was told he would have a maximum life expectancy of 8 years if untreated. He is going on year 5. Thank you for the opportunity to participate in this patient's care, please do not hesitate to contact [facility] with any further questions or concerns. Palliative direct line is [phone]. Patient would like some time to discuss with his and will contact us with any further questions or concerns. He is leaning towards enrolling in palliative care after lengthy discussion with this provider. He was able to express his frustration last 6 months, is wanting him to enroll. Greater than 50% of F2F visit dedicated to education and counseling of palliative care services, medications, comorbid conditions and potential assistance with management, and plan of care moving forward. Start time 1015 End time: 1114
--- NOTE | 2020-07-11 15:30 | PN.HOSP_ITS ---
Subjective Subjective Breathing better overall. Objective Data Objective Data Vital Signs: Vital Signs Temp Pulse Resp BP Pulse Ox 36.3 C L 104 H 18 121/74 H 96 07/11/20 09:15 07/11/20 09:15 07/11/20 09:15 07/11/20 09:15 07/11/20 10:01 Oxygen Flow Rate (L/min) [ 2 AMBULATING with Oxygen #1] Oxygen Flow Rate (L/min) [At 2 REST with Oxygen] Oxygen Flow Rate (L/min) 2 Oxygen Delivery Method Nasal Cannula Weight: 81 kg Body Mass Index (BMI) 24.9 Intake & Output: Intake and Output for Last 24 Hours 07/09/20 07/10/20 07/11/20 23:59 23:59 23:59 Intake Total 305 / 305 2575 / 2575 480 / 480 Output Total 475 / 475 400 / 400 Balance 305 / 305 2100 / 2100 80 / 80 Lab / Micro Data Result Diagrams: 07/11/20 06:00 07/11/20 06:00 Labs: Laboratory Results - last 24 hr 07/11/20 07/11/20 06:00 06:00 WBC 10.7 RBC 4.33 L Hgb 11.8 L Hct 38.5 L MCV 88.9 MCH 27.3 MCHC 30.6 L RDW Std Deviation 53.3 H RDW Coeff of Estelita 16.2 H Plt Count 346 MPV 9.2 Immature Gran % (Auto) 0.900 Neut % (Auto) 93.6 H Lymph % (Auto) 3.0 L [place] % (Auto) 2.4 Eos % (Auto) 0.0 Baso % (Auto) 0.1 Absolute Neuts (auto) 10.0 H Absolute Lymphs (auto) 0.32 L Nucleated RBC % 0 Differential Comment COMMENT Sodium 141 Potassium 4.0 Chloride 108 H Carbon Dioxide 25.0 Anion Gap 8 BUN 20 H Creatinine 0.82 Estim Creat Clear Calc 80.35 Est GFR (MDRD) Af Amer 117 Est GFR (MDRD) Non-Af 97 BUN/Creatinine Ratio 24.5 H Glucose 145 H Calcium 9.1 Micro: Microbiology 07/09/20 14:11 Blood Culture (Wb) - Anticubital Right Blood Culture - Preliminary No growth in 48 hours. 07/09/20 13:55 Blood Culture (Wb) - No Site/Description Given Blood Culture - Preliminary No growth in 48 hours. 07/11/20 01:10 Sputum, Expectorated/Coughed Gram Stain - Final 07/09/20 14:11 Interface Orders SARS-CoV-2 Antigen (Rapid) - Final Physical Exam Const alert HEENT Head and Scalp: normocephalic Resp normal respiratory effort Cardio regular rate, regular rhythm, S1 normal heart sound and S2 normal heart sound GI normal to inspection, nondistended, normoactive bowel sounds, non-tender and non-distended Assessment & Plan Assessment/Plan (1) Acute and chronic respiratory failure with hypoxia: (2) COPD with acute exacerbation: (3) Squamous cell carcinoma of left lung: (4) Stage 3 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: (5) Chronic hypoxemic respiratory failure: (6) Benign essential HTN: (7) HLD (hyperlipidemia): QUALIFIERS: Hyperlipidemia type: unspecified Qualified Code(s): E78.5 - Hyperlipidemia, unspecified (8) CAD (coronary artery disease): QUALIFIERS: Associated angina: angina presence unspecified PLAN: This is a 79 years old male patient presented to the emergency room because of worsening shortness of breath, cough and wheezing as well as subjective fever and is being admitted for acute COPD exacerbation with acute on chronic hypoxic respiratory failure. #1 acute COPD exacerbation: * Improving * Continue methypred and BDs * off abx #2 acute on chronic hypoxic respiratory failure: * improving * Plan for bronchodilators, IV steroids, antibiotics, wean off oxygen as tolerated. #3 lactic acidosis: * 2/2 hypoxemia, * no additional work up #4 stage III severe COPD/chronic respiratory failure: Plan as above. #5 CAD status post CABG: EKG reviewed, no acute changes. Troponin was negative. Continue aspirin, statins and Plavix. #6 squamous cell carcinoma of the lung: Status post lung resection and radiation therapy. He is following up with Dr. Ball as outpatient. #7 hypertension: Blood pressure stable, he is not on any antihypertensive medications at this time. #8 CODE STATUS: Full code, discussed with the patient. #9 DVT prophylaxis Lovenox. DC in 1-2 days. Visit Charges Inpatient E&M: 87949 Subs Hosp L2
[2020-07-11] MEDS: Polyethylene Glycol 3350 17 GM PACKET PO (21:57)
[2020-07-11] MEDS: Atorvastatin Calcium 20 MG Tablet PO (21:57)
[2020-07-12] VITALS (7 sets, daily range): BP systolic 142; BP diastolic 71; PULSE 71–94; RESP 17–18; TEMP 36.4–36.6; O2SAT 85–97
--- NOTE | 2020-07-12 08:56 | PCM.DC ---
Discharge Instructions Diet Discharge Diet: No restrictions Activity Discharge Activity: - (slowly ease back into normal routine. Don't over exert yourself.) Dressing / Incision Call your doctor if you observe: Fever of 101 or Higher and Shortness of breath Follow Up Care Test Results: Test results from this visit will be discussed in further detail at your follow-up appointment, if applicable. Discharge Plan Admission Admit Date/Time: 07/09/20 15:25 Attending Provider: Oliverio Valverde Primary Care Provider: Dillan Cummins Instructions Patient Instructions: Care for COPD Discharge Orders/Prescriptions Prescriptions: New prednisone 20 mg tablet 40 mg PO DAILY 5 Days Qty: 10 RF: 0 azithromycin 250 mg tablet 250 mg PO DAILY 5 Days Qty: 5 RF: 0 Continued albuterol sulfate [ProAir HFA] 90 mcg/actuation HFA aerosol inhaler 2 puff INHALATION Q4H PRN (Reason: shortness of breath or wheezing) Qty: 8.5 RF: 6 nitroglycerin 0.4 MG tablet 0.4 mg SL PRN PRN (Reason: Chest Pain) RF: 0 aspirin 81 MG tablet,chewable 81 mg PO DAILY@0800 RF: 0 clopidogrel 75 MG tablet 75 mg PO DAILY RF: 0 atorvastatin [Lipitor] 20 mg tablet 20 mg PO DAILY RF: 0 polyethylene glycol 3350 [Miralax] 17 gram Powder In Packet 17 g PO BID RF: 0 lorazepam [Ativan] 1 mg tablet 0.5 - 1 mg PO TID PRN (Reason: Anxiety) RF: 0 Tylenol Cold and Flu Severe [id number] mg/15 mL Liquid 5 - 10 ml PO BID RF: 0 Dulera 200-5 mcg/actuation HFA aerosol inhaler 2 puff INHALATION BID RF: 0 Spiriva Respimat 2.5 mcg/actuation mist 2 puff INHALATION Q24H RF: 0 Mucinex 1,200 mg Tablet Extended Release 12hr 1,200 mg PO BID RF: 0 albuterol sulfate 2.5 mg /3 mL (0.083 %) solution for nebulization 2.5 mg INHALATION Q4H PRN (Reason: J44.9 COPD) Qty: 120 RF: 6 Referrals / Follow Up: Dillan Cummins MD [Primary Care Provider] - Disposition Disposition (needs filled in before D/C Order can be placed): Home, self care
--- NOTE | 2020-07-12 09:02 | PCM.DC.SUM ---
Providers Date of Admission: 07/09/20 Primary Care Physician: Dr. Dillan Cummins MD Reason For Visit: ACUTE COPD EXAC,ACUTE ON CHRONIC HYPOXIC RESP FAIL Diagnosis Discharge Diagnosis (1) Acute and chronic respiratory failure with hypoxia: Status: Chronic Code(s): J96.21 - Acute and chronic respiratory failure with hypoxia (2) COPD with acute exacerbation: Status: Chronic Code(s): J44.1 - Chronic obstructive pulmonary disease with (acute) exacerbation (3) Squamous cell carcinoma of left lung: Status: Acute Code(s): C34.92 - Malignant neoplasm of unspecified part of left bronchus or lung (4) Stage 3 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: Status: Chronic Code(s): J44.9 - Chronic obstructive pulmonary disease, unspecified (5) Chronic hypoxemic respiratory failure: Status: Chronic Code(s): J96.11 - Chronic respiratory failure with hypoxia (6) Benign essential HTN: Status: Chronic Code(s): I10 - Essential (primary) hypertension (7) HLD (hyperlipidemia): Status: Chronic Code(s): E78.5 - Hyperlipidemia, unspecified Qualifiers: Hyperlipidemia type: unspecified Qualified Code(s): E78.5 - Hyperlipidemia, unspecified (8) CAD (coronary artery disease): Status: Chronic Code(s): I25.10 - Atherosclerotic heart disease of [place] coronary artery without angina pectoris Qualifiers: Associated angina: angina presence unspecified Medications at Discharge Home Medications aspirin 81 mg PO DAILY@0800 12/29/14 nitroglycerin 0.4 mg SL PRN PRN 12/29/14 clopidogrel 75 mg PO DAILY 04/19/16 albuterol sulfate 90 mcg/actuation aerosol inhaler 2 puff INHALATION Q4H PRN #8.5 g 02/08/20 albuterol sulfate 2.5 mg INHALATION Q4H PRN #120 vial 02/14/20 Dulera 2 puff INHALATION BID 07/09/20 Mucinex 1,200 mg PO BID 07/09/20 Spiriva Respimat 2 puff INHALATION Q24H 07/09/20 Tylenol Cold and Flu Severe 5 - 10 ml PO BID 07/09/20 atorvastatin [Lipitor] 20 mg PO DAILY 07/09/20 lorazepam [Ativan] 0.5 - 1 mg PO TID PRN 07/09/20 polyethylene glycol 3350 [Miralax] 17 g PO BID 07/09/20 azithromycin 250 mg PO DAILY 5 Days #5 tab 07/12/20 prednisone 40 mg PO DAILY 5 Days #10 tab 07/12/20 Hospital Course Operations None Procedures None Summary of Care Provided Minutes Spent on Discharge: 28 Hospital Course: Presents with an acute exacerbation of COPD. Patient was started on methylprednisolone as well as continued on bronchodilators. Overall improved. Plan is for 5 more days of prednisone but will also have the patient on 5 days of azithromycin. Patient does have abnormal chest x-ray appears to be chronic for him but patient is still having productive mucus so we will continue with azithromycin. He did receive some levofloxacin while he was here in the hospital. Patient does have oxygen at home but only uses at night. Will assess patient for amatory pulse ox and if he does require that then he would have oxygen tanks. Patient was asked about a portable condenser. I told him that we would not be able to facilitate obtaining that through the hospitalization but he states that he is active and working through Dr. Calvillo regards to obtaining that. Physical Exam Const alert Eyes PERRL Resp normal respiratory effort Cardio regular rate, regular rhythm, S1 normal heart sound and S2 normal heart sound GI normal to inspection, nondistended, normoactive bowel sounds, non-tender and non-distended ABG / Lab / Microbiology Data Result Diagrams: 07/11/20 06:00 07/11/20 06:00 Microbiology: Microbiology 07/09/20 14:11 Blood Culture - Preliminary Blood Culture (Wb) - Anticubital Right No growth in 48 hours. 07/09/20 13:55 Blood Culture - Preliminary Blood Culture (Wb) - No Site/Description Given No growth in 48 hours. 07/11/20 01:10 Gram Stain - Final Sputum, Expectorated/Coughed Microbiology 07/09/20 14:11 Blood Culture (Wb) - Anticubital Right Blood Culture - Preliminary No growth in 48 hours. 07/09/20 13:55 Blood Culture (Wb) - No Site/Description Given Blood Culture - Preliminary No growth in 48 hours. 07/11/20 01:10 Sputum, Expectorated/Coughed Gram Stain - Final 07/09/20 14:11 Interface Orders SARS-CoV-2 Antigen (Rapid) - Final D/C Instructions Discharge Diet: No restrictions Discharge Activity: - (slowly ease back into normal routine. Don't over exert yourself.) Call your doctor if you observe: Fever of 101 or Higher and Shortness of breath Meaningful Use Info Meaningful Use Diagnoses (Choose all that apply): None applicable Discharge Plan Admission Admit Date/Time: 07/09/20 15:25 Attending Provider: Oliverio Valverde Primary Care Provider: Dillan Cummins Instructions Patient Instructions: Care for COPD Discharge Orders/Prescriptions Prescriptions: New prednisone 20 mg tablet 40 mg PO DAILY 5 Days Qty: 10 RF: 0 azithromycin 250 mg tablet 250 mg PO DAILY 5 Days Qty: 5 RF: 0 Continued albuterol sulfate [ProAir HFA] 90 mcg/actuation HFA aerosol inhaler 2 puff INHALATION Q4H PRN (Reason: shortness of breath or wheezing) Qty: 8.5 RF: 6 nitroglycerin 0.4 MG tablet 0.4 mg SL PRN PRN (Reason: Chest Pain) RF: 0 aspirin 81 MG tablet,chewable 81 mg PO DAILY@0800 RF: 0 clopidogrel 75 MG tablet 75 mg PO DAILY RF: 0 atorvastatin [Lipitor] 20 mg tablet 20 mg PO DAILY RF: 0 polyethylene glycol 3350 [Miralax] 17 gram Powder In Packet 17 g PO BID RF: 0 lorazepam [Ativan] 1 mg tablet 0.5 - 1 mg PO TID PRN (Reason: Anxiety) RF: 0 Tylenol Cold and Flu Severe [id number] mg/15 mL Liquid 5 - 10 ml PO BID RF: 0 Dulera 200-5 mcg/actuation HFA aerosol inhaler 2 puff INHALATION BID RF: 0 Spiriva Respimat 2.5 mcg/actuation mist 2 puff INHALATION Q24H RF: 0 Mucinex 1,200 mg Tablet Extended Release 12hr 1,200 mg PO BID RF: 0 albuterol sulfate 2.5 mg /3 mL (0.083 %) solution for nebulization 2.5 mg INHALATION Q4H PRN (Reason: J44.9 COPD) Qty: 120 RF: 6 Referrals / Follow Up: Yong Calvillo DO [STAFF PHYSICIAN] - Within 1 Month Dillan Cummins MD [Primary Care Provider] - Disposition Disposition (needs filled in before D/C Order can be placed): Home, self care Visit Charges Inpatient E&M: 72589 Disch Hosp
[2020-07-12] MEDS: Aspirin 81 MG TAB.CHEW PO (09:10)
[2020-07-12] MEDS: Clopidogrel Bisulfate 75 MG Tablet PO (09:10)
--- NOTE | 2020-07-12 10:30 | CASEMGMT ---
Addendum entered by Libby Chua 07/12/20 11:03: TC to [facility] and spoke with Amy. She states pt is renting a portable over the shoulder O2. RN CM in to pt room and pt states he does not have this. He states he has portable on wheels but nothing he can carry. Amy states they will handle this when pt gets home and a tank will be delivered today. Pt voicing concern with previous care, asked if he would like to speak to patient advocate. Pt declined and at bedside declined also. Original Note: Pt noted to need increased O2 at home. Faxed updated rx to [facility] at this time.
--- NOTE | 2020-07-12 12:23 | CASEMGMT ---
Patient has a Healthcare Power of Sketch Artist and a Healthcare Living Will on file at [facility]. His , Serenity is his Healthcare Power of Sketch Artist. Jailyn Aguillon MONOGRAM AND LETTER PASTER YAMILA
--- NOTE | 2020-07-12 14:11 | PHA.DC.MC ---
Pharmacy Service has performed discharge medication reconciliation and counseling for this patient. The patient was counseled on the following discharge medications and changes in medications for homegoing were reviewed. 1. PREDNISONE 2. ZITHROMAX The Reason for Use, instructions for use, and potential side effects were reviewed for all new medications. The patient's questions regarding all of their medications were answered. The patient was able to verbally demonstrate an understanding of their discharge medications. Home Medications aspirin 81 mg PO DAILY@0800 12/29/14 nitroglycerin 0.4 mg SL PRN PRN 12/29/14 clopidogrel 75 mg PO DAILY 04/19/16 albuterol sulfate 90 mcg/actuation aerosol inhaler 2 puff INHALATION Q4H PRN #8.5 g 02/08/20 albuterol sulfate 2.5 mg INHALATION Q4H PRN #120 vial 02/14/20 Dulera 2 puff INHALATION BID 07/09/20 Mucinex 1,200 mg PO BID 07/09/20 Spiriva Respimat 2 puff INHALATION Q24H 07/09/20 Tylenol Cold and Flu Severe 5 - 10 ml PO BID 07/09/20 atorvastatin [Lipitor] 20 mg PO DAILY 07/09/20 lorazepam [Ativan] 0.5 - 1 mg PO TID PRN 07/09/20 polyethylene glycol 3350 [Miralax] 17 g PO BID 07/09/20 azithromycin 250 mg PO DAILY 5 Days #5 tab 07/12/20 prednisone 40 mg PO DAILY 5 Days #10 tab 07/12/20 The patient's discharge medication list was reviewed for discrepancies and discrepancies were resolved.
--- NOTE | 2020-07-13 13:57 | CASEMGMT ---
GILMAR DIAZ Discharge Follow-Up Phone Call. Christin: 13 Strata: 3 Discharge Date: 07/12/20 Adm Dx: Acute COPD exac, A on C hypoxic resp failure Call to pt to inquire about how he has been doing since being discharged from the hospital. Pt's answered and spoke w/this GILMAR DIAZ. She states pt has been tired and sleeping a lot since returning home, and states, but otherwise I think he is okay. She states they did get the 2 new prescriptions from [facility] retail pharmacy prior to discharge and pt has taken them and his other medications as prescribed. She denies having any questions about the medications or discharge instructions. She states she spoke w/Amy @ [facility] and got everything taken care of. She states they are in the process of getting pt a portable concentrator, but they are backed up and it may be a month or so before he can get one. states does not understand why pt's moisture meter operator did not see pt while pt was admitted to [facility]. GILMAR DIAZ explained that hospitalist managed pt's condition/care while pt was in the hospital and did not make referral to pulmonology. voices appreciation of this explanation. She is aware of f/u appt's with pt's PCP and Dr Calvillo. She denies having any further questions/concnerns/needs and thanked GILMAR DIAZ for calling. Connor MESSINA RN, CM
== END 2020-07-12 12:38 | disposition home or self-care (01) | DRG 190 ==
LOC: ED 14:29 → PCU 15:29
PROVIDERS: Family Medicine; Admitting Provider Hospitalist; Emergency Provider Emergency Medicine; PCP Family Medicine
DX: J44.1 Chronic obstructive pulmonary disease with (acute) exacerbation (principal); J96.21 Acute and chronic respiratory failure with hypoxia; E43 Unspecified severe protein-calorie malnutrition; C34.92 Malignant neoplasm of unspecified part of left bronchus or lung; E87.2 Acidosis; E78.5 Hyperlipidemia, unspecified; I10 Essential (primary) hypertension; I25.10 Atherosclerotic heart disease of native coronary artery without angina pectoris; E11.9 Type 2 diabetes mellitus without complications; F17.291 Nicotine dependence, other tobacco product, in remission; Z79.51 Long term (current) use of inhaled steroids; Z95.1 Presence of aortocoronary bypass graft; Z79.899 Other long term (current) drug therapy; Z85.46 Personal history of malignant neoplasm of prostate; Z68.24 Body mass index [BMI] 24.0-24.9, adult
CPT/HCPCS: 36415; 71045; 80048; 80053; 83605; 83880; 84484; 85025; 87040; 87070; 87205; 87426; 93005; 94640; 94667; 94668; 97110; 97162; 97166; 97530; 97535; 97802; 99284; J7030; A4216

== ENCOUNTER 2020-08-14 10:48 | Day surgery (SDC) | payer MEDICARE, BC, SELFPAY ==
[2020-08-10 08:44] VITALS: BMI 23.6
--- NOTE | 2020-08-13 07:48 | HP.PCM_ITS ---
HPI - General HPI Narrative The patient is a 80-year-old male who was last seen in the pulmonary medicine clinic on August [address] chest was obtained by his oncologist, which revealed evidence of tree-in-bud formation concerning for multifocal pneumonia in the right lung along with a left apical pulmonary nodule with internal cavita tion. If you recall, the patient has a known history of COPD. He has a prior smoking history of 2-3 packs per day ?45 years, having quit completely 14 years ago. The patient does have a history of coronary artery disease for which he is status post three-vessel CABG in January 2000. His last surface echocardiogram showed normal LV size and function with an ejection fraction of 65%. The RVSP was unable to be estimated. 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 The patient did have a recent CT abdomen/pelvis completed to follow-up on an aneurysm. There was incidental note of a left lower lobe lung nodule, which measured approximately 1.[address] chest without contrast dated January 2020 revealed an irregular nodular density in the periphery of the left lower lobe which was greater than 1 cm in size. The patient was subsequently referred and underwent CT-guided lung biopsy at the end of January 2020. Pathology from the lung biopsy revealed fragments of benign lung parenchyma with focal minimal fibrosis, which was negative for malignancy. Given concerns for the patient's lung nodule despite negative CT-guided lung biopsy, the patient was referred to thoracic surgery. He subsequently underwent a left lower lobe wedge resection with clear margins with pathology that indicated moderately differentiated squamous cell carcinoma. The patient's cancer was managed by Dr. Ball of oncology and the patient is currently active with palliative care medicine. The patient does have a baseline supplemental oxygen requirement of 3 L/min. 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 Home Medications aspirin 81 mg PO DAILY@0800 12/29/14 [History Last Taken 07/08/20] nitroglycerin 0.4 mg SL PRN PRN 12/29/14 [History Last Taken 1 Week Ago ~07/02/20] clopidogrel 75 mg PO DAILY 04/19/16 [History Last Taken 07/08/20] albuterol sulfate 90 mcg/actuation aerosol inhaler 2 puff INHALATION Q4H PRN #8.5 g 02/08/20 [Rx Last Taken 07/07/20] albuterol sulfate 2.5 mg INHALATION Q4H PRN #120 vial 02/14/20 [Rx Last Taken 3 Weeks Ago ~06/18/20] Dulera 2 puff INHALATION BID 07/09/20 [History Last Taken 07/09/20] Mucinex 1,200 mg PO BID 07/09/20 [History Last Taken Unknown] Spiriva Respimat 2 puff INHALATION Q24H 07/09/20 [History Last Taken 07/09/20 13:00] Tylenol Cold and Flu Severe 5 - 10 ml PO BID 07/09/20 [History Last Taken 07/09/20] atorvastatin [Lipitor] 20 mg PO DAILY 07/09/20 [History Last Taken 07/08/20] lorazepam [Ativan] 0.5 - 1 mg PO TID PRN 07/09/20 [History Last Taken 07/09/20] polyethylene glycol 3350 [Miralax] 17 g PO BID 07/09/20 [History Last Taken 07/09/20] Allergy/AdvReac Type Severity Reaction Status Date / Time isosorbide [From Imdur] Allergy Other-patient Verified 08/10/20 13:17 blacks out Family History (Reviewed 08/10/20 @ 13:27 by Karol Hurtado TELECOMMUNICATIONS CONSULTANT, TELECOMMUNICATIONS CONSULTANT-C) Other No pertinent family history Surgical History Hx of CABG Hx of pneumonectomy No pertinent past surgical history Social History (Reviewed 08/10/20 @ 13:27 by Karol Hurtado TELECOMMUNICATIONS CONSULTANT, TELECOMMUNICATIONS CONSULTANT-C) Smoking Status: Former smoker Tobacco: How many years used: 45 Electronic Cigarette Use: not used how long ago did patient quit smokin, second hand exposure: Yes alcohol intake: never substance use type: does not use ROS Respiratory/Chest Respiratory/Chest: Reports as per HPI Vital Signs Vital Signs Vital Signs: Weight Body Mass Index (BMI) 23.6 Physical Exam Const alert General Appearance: cooperative HEENT normocephalic and head/scalp atraumatic Eyes PERRL and EOMs intact bilaterally Neck supple General: trachea midline Resp Auscultation: diminished lung sounds Cardio regular rate and regular rhythm GI normal to inspection, nondistended, normoactive bowel sounds Extremity no clubbing, cyanosis or edema Neuro CN's II-XII intact bilaterally and no focal motor deficits Psych thought process normal and affect normal Appearance: appropriate Assessment & Plan Assessment/Plan (1) Abnormal chest CT: PLAN: 1. Abnormal chest CT The patient has a known history of non-small cell lung cancer and has been treated recently with multiple rounds of antimicrobials over concerns for pneumonia. A recent CT chest was obtained by his oncologist, dated August 01, 2020, which revealed right-sided multifocal pneumonia with tree-in-bud opacities along with an irregular appearing left apical pulmonary nodule with internal cavitation. Over concerns for his lack of clinical improvement on antimicrobials, the patient was referred to undergo bronchoscopy with BAL. Risks and benefits of the proposed procedure were discussed with the patient. He is agreeable to proceed.
[2020-08-14] VITALS (9 sets, daily range): BP systolic 83–130; BP diastolic 59–97; PULSE 76–107; RESP 16–18; TEMP 36.2–36.8; O2SAT 93–100; BMI 23.3
[2020-08-14] MEDS: Lactated Ringers 1,000 ML 100 ML IV (11:37)
[2020-08-14] MEDS: Lidocaine 2% (5ml sdv) 5 ML VIAL.MPF (12:23)
[2020-08-14] MEDS: Lidocaine 2% Jelly 1 APPLIC Tube (12:23)
--- NOTE | 2020-08-14 12:54 | OP.BRONCH_ITS ---
Patient Name: Hal Corley Procedure Date: 08/14/2020 11:55 AM Date of : 1940 Age: 80 Procedure: Bronchoscopy Indications: Abnormal CT scan of chest Providers: Yong Calvillo MD Referring MD: Albert Ball Medicines: See the Anesthesia note for documentation of the administered medications Complications: No immediate complications Procedure: Pre-Anesthesia Assessment: - A History and Physical has been performed. Patient meds and allergies have been reviewed. The risks and benefits of the procedure and the sedation options and risks were discussed with the patient. All questions were answered and informed consent was obtained. Patient identification and proposed procedure were verified prior to the procedure by the physician and the nurse in the procedure room. Mental Status Examination: alert and oriented. Airway Examination: normal oropharyngeal airway. Respiratory Examination: poor air movement. CV Examination: normal. ASA Grade Assessment: II - A patient with mild systemic disease. After reviewing the risks and benefits, the patient was deemed in satisfactory condition to undergo the procedure. The anesthesia plan was to use monitored anesthesia care (MAC). Immediately prior to administration of medications, the patient was re-assessed for adequacy to receive sedatives. The heart rate, respiratory rate, oxygen saturations, blood pressure, adequacy of pulmonary ventilation, and response to care were monitored throughout the procedure. The physical status of the patient was re-assessed after the procedure. After I obtained informed consent, the scope was passed under direct vision. Throughout the procedure, the patient's blood pressure, pulse, and oxygen saturations were monitored continuously. The bronchoscope was introduced through the mouth and advanced to the tracheobronchial tree. The procedure was accomplished without difficulty. The patient tolerated the procedure well. Findings: The nasopharynx/oropharynx appears normal. The larynx appears normal. The vocal cords appear normal. The subglottic space is normal. The trachea is of normal caliber. The danni is sharp. The tracheobronchial tree of the left lung was examined to at least the first subsegmental level. Bronchial mucosa and anatomy in the left lung are normal; there are no endobronchial lesions, and no secretions. Right Lung Abnormalities: Notable, mucopurulent, thick secretions were found in the right mainstem bronchus and in the right lower lobe. They were not obstructing the airway. BAL was performed in the right lower lobe of the lung and sent for cell count and differential, aerobic culture, AFB analysis & culture, fungal analysis and viral culture. 25 mL were returned. The return was mucoid. Impression: - Abnormal CT scan of chest - The airway examination of the left lung was normal. - Notable, mucopurulent, thick secretions were found in the right mainstem bronchus and in the right lower lobe. - Bronchoalveolar lavage was performed. Recommendation: - Await culture results. Procedure Code(s): --- Professional --- 09259, Bronchoscopy, rigid or flexible, including fluoroscopic guidance, when performed; with bronchial alveolar lavage Diagnosis Code(s): --- Professional --- R09.89, Other specified symptoms and signs involving the circulatory and respiratory systems R93.8, Abnormal findings on diagnostic imaging of other specified body structures CPT copyright 2017 [employer]. All rights reserved. The codes documented in this report are preliminary and upon dynamite packing machine operator review may be revised to meet current compliance requirements. DO Yong Blankenship MD 08/14/2020 12:54:23 PM This report has been signed electronically. Number of Addenda: 0 Note Initiated On: 08/14/2020 11:55 AM
[2020-08-14 14:36] LABS: Appearance/Body Fluid CLOUDY; Color/Body Fluid COLORLESS; Red Cell Count/Body Fluid 1225 /mm3; Source- Body Fluid BRONCHIAL LAVAGE; White Blood Count/Body Fluid 5815 /mm3
[2020-08-14 14:40] LABS: Body Fluid QC Type(s) BF1Q
[2020-08-14 14:50] LABS: Lymphocytes 4 %; Monocytes 6 %; Neutrophil (Segs) 90 %
[2020-08-15 12:11] LABS: Pathologist Comment/Body Fluid Reviewed
== END 2020-08-14 14:10 ==
LOC: EN 10:48 → AC 10:49
PROVIDERS: PCP Family Medicine; Referring Provider Family Medicine; Visit Provider Internal Medicine Critical Care Medicine
PROC: 0BJ08ZZ Inspection of Tracheobronchial Tree, Via Natural or Artificial Opening Endoscopic (ICD-10-PCS; CPT 31622; principal; 2020-08-14 11:45)
DX: R93.89 Abnormal findings on diagnostic imaging of other specified body structures (principal); J44.9 Chronic obstructive pulmonary disease, unspecified; I25.10 Atherosclerotic heart disease of native coronary artery without angina pectoris; Z95.1 Presence of aortocoronary bypass graft; Z87.891 Personal history of nicotine dependence; I10 Essential (primary) hypertension; E78.5 Hyperlipidemia, unspecified; J96.11 Chronic respiratory failure with hypoxia; R91.1 Solitary pulmonary nodule; Z79.51 Long term (current) use of inhaled steroids; Z79.82 Long term (current) use of aspirin; Z98.890 Other specified postprocedural states
CPT/HCPCS: 31624; 87015; 87070; 87077; 87116; 87186; 87205; 87206; 87252; 87278; 89050; J7120; J2405

== ENCOUNTER → 2020-08-28 16:05 | Outpatient (CLI) | payer MEDICARE, BC, SELFPAY ==
[2020-08-14 11:43] VITALS: BMI 23.3
--- NOTE | 2020-08-28 15:30 | PET_ITS ---
EXAMINATION: FDG PET-CT INDICATIONS: A 80-year-old male with history of carcinoma of the lung presenting for restaging examination. COMPARISON EXAMINATION: CT of the chest report dated 08/01/20 INDEX LESION SIZE SUV INTERPRETATION Left lower lateral lung-left lower lobe, nodular 28.9-mm (frame 169) 3.9 May necessitate histopathologic investigation secondary to quantitative degree of uptake, short-term reevaluation with FDG PET study recommended at a minimum NON-INDEX LESION SIZE SUV INTERPRETATION Left lower lung-left lower lobe, diffuse 1.9 Quantitative criteria for viable neoplasm are not fulfilled Left upper medial hemithorax pleural interface 2.4 Quantitative criteria for viable neoplasm are not fulfilled TECHNIQUE: Following the intravenous administration of 13.38 mCi of F-18 deoxyglucose via the left antecubital fossa, multiplanar image acquisitions of the neck, chest, abdomen and pelvis to level of mid thigh, obtained at one hour post radiopharmaceutical administration contemporaneously interpreted with the current CT of the neck, chest, abdomen and pelvis, to level of mid thigh, dated 08/28/[address] of the chest report dated 08/01/20 reveals: BLOOD GLUCOSE LEVEL:?? 132 mg/dl?HEIGHT:?70 inches?WEIGHT: 165 lbs. FINDINGS: 1. A nodular focus of increased glucose metabolism is currently defined in the left lower lateral lung-left lower lobe corresponding to a nodular density defined on CT of the chest dated 08/28/20 adjacent to a hydropneumothorax defined on CT of the chest dated 08/28/20. The calculated maximal standard uptake value is 3.9. The maximal axial diameter of the corresponding nodular density on review of CT of the chest dated 08/28/20 is 28.9-mm (AP). 2. There is a diffuse increase in FDG distribution manifest in the left lower lateral lung-left lower lobe, non-nodular in presentation, corresponding to airspace disease defined on CT of the chest dated 08/28/20. The calculated maximal standard uptake value is 1.9. Quantitative criteria for neoplasia are not fulfilled. 3. Accentuated fluorine labeled glucose metabolism is identified in the left upper medial hemithorax at the pleural interface generating a calculated maximal standard uptake value of 2.4. 4. Normal physiologic distribution of the radiopharmaceutical is apparent in the hepatic (3.0) and splenic parenchyma, both renal units, bladder and visualized intestinal tract. The visualized portion of the cerebral cortical-subcortical structures demonstrate symmetric and preserved glucose metabolism. Diffuse radiopharmaceutical concentration is noted in all four quadrants of the abdomen and pelvis. There is pooling of the radiopharmaceutical noted in the region of the prostatic urethra caudal to the urinary bladder. Pertinent CT findings are as follows: CHEST: Significant coronary arterial calcification is observed. A hydropneumothorax is encountered in the left lower lateral hemithorax as previously described. Atherosclerotic calcification is identified in the thoracic aorta. The maximal axial diameter of the ascending thoracic aorta is 40.2-mm (transverse). Bilateral axillary and scattered mediastinal soft tissue densities demonstrate no evidence of increased glucose avidity. A parenchymal density manifest in the left apical lung field is non-glucose avid. Emphysematous changes are encountered in the bilateral upper-mid lung zones. Additional interstitial changes manifest primarily in the right lung field and additional nodular densities are ametabolic. ABDOMEN AND PELVIS: Atherosclerotic calcification is defined in the abdominal aorta. The maximal axial diameter of the abdominal aorta is 31.1-mm. Abdominal-pelvic arterial calcification is defined. Right and left inguinal soft tissue densities with fatty hilus are ametabolic. Calcifications are noted in the bilateral renal units. Colonic diverticulosis is noted without evidence of diverticulitis. SKELETAL: Degenerative changes are noted in the cervical, thoracic and lumbar spine without evidence of increased radiopharmaceutical concentration. PET/PET/CT Tumor Base -Thigh Subs IMPRESSION: 1. The increase in glucose metabolism manifest in the left lower lateral lung-left lower lobe, nodular in presentation, may warrant histopathologic investigation secondary to the quantitative degree of uptake. (Amira et al, Journal of Nuclear Medicine 43:302 P, 2002). 2. If a conservative management approach is undertaken, metabolic and/or anatomic stability may be ensured in the left lower lateral lung-left lower lobe abnormality with repeat FDG PET study and/or CT of the thorax in 9-12 weeks. ([place], Journal of Nuclear Medicine 45:88, P2004 Marciano, Seminars in Thoracic and Cardiovascular Surgery 14:292, 2002). 3. Enhanced tracer uptake diffusely apparent in the left lower lateral lung-left lower lobe does not fulfill quantitative criteria for viable neoplasm. 4. Facilitated radiopharmaceutical concentration observed in the left upper medial hemithorax at the pleural interface does not fulfill quantitative criteria for viable pleural neoplasm. (Green, et al, Chest 122:1918, 2002). Electronic Signature David Ritter D.O. Accurate Quantification of SUVs for this report are calculated using the exclusive [employer], (U.S. Patent No. [id number] [id number] 983). Standardization and correction of the FDG SUV metric exclusively available with [employer] intellectual property, allow for vendor non-specific objective quantitative sequential FDG PET-CT comparison and otherwise unobtainable optimization of the sensitivity and specificity of the examination. Electronically Signed: David Ritter DO at 13:34 EDT Tel , Service support ,
== END ==
PROVIDERS: PCP Family Medicine; Referring Provider Internal Medicine Hematology & Oncology; Visit Provider Internal Medicine Hematology & Oncology
DX: Z85.118 Personal history of other malignant neoplasm of bronchus and lung (principal)
CPT/HCPCS: 78815; A9552

== ENCOUNTER → 2020-09-24 13:31 | Outpatient (CLI) | payer MEDICARE, BC, SELFPAY ==
[2020-09-20 14:09] VITALS: BMI 23.0
== END ==
PROVIDERS: PCP Family Medicine; Referring Provider Internal Medicine Critical Care Medicine; Visit Provider Internal Medicine Critical Care Medicine
DX: J44.9 Chronic obstructive pulmonary disease, unspecified (principal)
CPT/HCPCS: 87070; 87077; 87186; 87205

== ENCOUNTER → 2020-10-01 13:09 | Outpatient (CLI) | payer MEDICARE, BC, SELFPAY ==
[2020-09-20 14:09] VITALS: BMI 23.0
[2020-10-01 14:12] LABS: PSA,Total- Diagnostic 0.15 ng/mL (0.0-4.0)
== END ==
PROVIDERS: PCP Family Medicine; Referring Provider Urology; Visit Provider Urology
DX: C61 Malignant neoplasm of prostate (principal)
CPT/HCPCS: 36415; 84153

== ENCOUNTER → 2020-11-13 15:48 | Outpatient (CLI) | payer MEDICARE, BC, SELFPAY ==
--- NOTE | 2020-11-13 | PET_ITS ---
EXAMINATION: FDG PET-CT INDICATIONS: A 80-year-old male with history of primary lung carcinoma presenting for restaging examination. COMPARISON EXAMINATION: FDG PET study dated 08/28/20 INDEX LESION SIZE SUV INTERPRETATION PERSISTENT: left lower lung-left lower lobe, heterogeneous 2.3 (max) comp. to 3.9 (08/28/20) Quantitative criteria for viable neoplasm are not fulfilled NEW: left upper lung-left upper lobe 12.8-mm 0.8 Quantitative criteria for viable neoplasm are not fulfilled, sequential radiologic investigation recommended NON-INDEX LESION SIZE SUV INTERPRETATION PERSISTENT: left upper medial hemithorax pleural interface 2.2 comp. to 2.4 (08/28/20) Quantitative criteria for viable neoplasm are not fulfilled TECHNIQUE: Following the intravenous administration of 12.29 mCi of F-18 deoxyglucose via the left antecubital fossa, multiplanar image acquisitions of the neck, chest, abdomen and pelvis to level of mid thigh, obtained at one hour post radiopharmaceutical administration contemporaneously interpreted with the current CT of the neck, chest, abdomen and pelvis, to level of mid thigh, dated 11/13/20 via coregistration and FDG PET study dated 08/28/20 reveals: BLOOD GLUCOSE LEVEL:?? 123 mg/dl? FINDINGS: 1. Mild increased glucose metabolism remains apparent in the left lower lung-left lower lobe generating a current calculated maximal standard uptake value of 2.3. The pattern of uptake is changed on the present examination. Quantitative criteria for neoplasm are not fulfilled. Uptake corresponds to ground glass density on review of CT of the chest dated 11/13/20. 2. There is an increase in radiopharmaceutical uptake redemonstrated in the left upper medial hemithorax at the pleural interface rendering a current calculated maximal standard uptake value of 2.2, compared to 2.4. Quantitative criteria for viable pleural neoplasia are not fulfilled. 3. Subtle increased FDG concentration is newly apparent in the left upper lung-left upper lobe rendering a calculated maximal standard uptake value of 0.8. The maximal axial diameter of the corresponding non-calcified density on review of CT of the chest dated 11/13/20 is 12.8-mm. 4. Normal physiologic distribution of the radiopharmaceutical is apparent in the hepatic (3.5/3.0) and splenic parenchyma, both renal units, bladder and visualized intestinal tract. The visualized portion of the cerebral cortical-subcortical structures demonstrate symmetric and preserved glucose metabolism. Diffuse radiopharmaceutical concentration is noted in all four quadrants of the abdomen and pelvis. There is pooling of the radiopharmaceutical redefined in the distribution of the prostatic urethra. Previously defined morphologic-anatomic changes noted on review of CT of the neck, chest, abdomen and pelvis on the FDG PET-CT report dated 08/28/20, are essentially unchanged on the current examination. PET/PET/CT Tumor Base -Thigh Subs IMPRESSION: 1. NEGATIVE EXAMINATION. There is no definitive quantitative scintigraphic evidence of recurrent-metastatic/viable neoplasm. 2. Increased glucose concentration redefined in the left lower lung-left lower lobe and newly apparent in the left upper lung field-left upper lobe, nodular in presentation, do not fulfill quantitative criteria for viable neoplasm. (Ofe et al, Annals of Internal Medicine, 138:724, 2003). 3. Metabolic and/or anatomic stability may be ensured in the left lung field abnormalities with repeat FDG PET study and/or CT of the thorax in 3-6 months if clinically indicated. (Xiu, Journal of Nuclear Medicine 45:88, P2004 Marciano, Seminars in Thoracic and Cardiovascular Surgery 14:292, 2002). 4. Enhanced tracer uptake revisualized in the left upper medial hemithorax pleural interface does not fulfill quantitative criteria for malignant transformation. (Green, et al, Chest 122:1918, 2002). 5. Overall, compared to the prior FDG PET study dated 08/28/20, there is current absence of defined viable neoplastic disease. Electronic Signature David Ritter D.O. Accurate Quantification of SUVs for this report are calculated using the exclusive [employer], (U.S. Patent No. [id number] [id number] 983). Standardization and correction of the FDG SUV metric exclusively available with [employer] intellectual property, allow for vendor non-specific objective quantitative sequential FDG PET-CT comparison and otherwise unobtainable optimization of the sensitivity and specificity of the examination. Electronically Signed: David Ritter DO at 17:24 EDT Tel , Service support ,
== END ==
PROVIDERS: PCP Family Medicine; Referring Provider Internal Medicine Hematology & Oncology; Visit Provider Internal Medicine Hematology & Oncology
DX: C34.32 Malignant neoplasm of lower lobe, left bronchus or lung (principal)
CPT/HCPCS: 78815; A9552

== ENCOUNTER 2021-04-02 13:06 | Outpatient (CLI) | payer MEDICARE, BC, SELFPAY ==
[2021-04-02 14:37] LABS: PSA,Total- Diagnostic 0.24 ng/mL (0.0-4.0)
== END 2021-04-02 23:59 | disposition short-term general hospital (02) ==
LOC: LAB 13:10
PROVIDERS: PCP Family Medicine; Referring Provider Urology; Visit Provider Urology
DX: C61 Malignant neoplasm of prostate (principal)
CPT/HCPCS: 36415; 84153

== ENCOUNTER → 2021-10-07 | Outpatient (CLI) | payer MEDICARE, BC, SELFPAY ==
[2021-10-07 14:08] LABS: PSA,Total- Diagnostic 0.22 ng/mL (0.0-4.0)
== END | disposition home or self-care (01) ==
LOC: LAB 12:56
PROVIDERS: PCP Family Medicine; Referring Provider Urology; Visit Provider Urology
DX: C61 Malignant neoplasm of prostate (principal)
CPT/HCPCS: 36415; 84153

== ENCOUNTER 2021-12-15 12:04 | Emergency (ER) | payer MEDICARE, BC, SELFPAY ==
[2021-12-15] VITALS (7 sets, daily range): BP systolic 137–162; BP diastolic 80–87; PULSE 65–115; RESP 20–31; TEMP 37.2; O2SAT 94–98; BMI 25.2
--- NOTE | 2021-12-15 12:25 | RAD_ITS ---
EXAM: XR CHEST, 1 VIEW CLINICAL INDICATION: cough sob copd TECHNIQUE: Frontal view of the chest. This report was created using [employer] report generation technology. COMPARISON: XR Chest dated 07/09/2020 FINDINGS: LUNGS AND PLEURAL SPACES: Bilateral pleural-parenchymal densities again noted consistent with areas of scarring. Loculated small pneumothorax along the left lateral costophrenic sulcus has decreased in size. No effusion. HEART: Coronary artery bypass graft (CABG). Normal heart size. MEDIASTINUM: No mediastinal or hilar mass. BONES/JOINTS: No acute abnormality. SOFT TISSUES: Normal. RAD/Chest 1 View (Portable) IMPRESSION: Bilateral pleural parenchymal density suggestive of scarring. Electronically Signed: Chin Ross MD at 12:36 EDT ,
--- NOTE | 2021-12-15 12:26 | ED.VIS.DYS ---
HPI History of Present Illness Chief Complaint: Shortness of Breath Informant: patient Onset/Context/Timing Onset: Days (5-7) Context: gradual and onset Timing: Continuous Quality: Positive for Dyspnea on exertion and Wheezing Current Severity: Moderate Maximum Severity: Moderate Worsened by: Exertion and Coughing Relieved by: Rest, Oxygen and Albuterol Associated Symptoms cough and green sputum; Negative for fever, chills or sweats Chest Pain: Positive for None Narrative Narrative: Patient feels like he caught a URI from his who recently had cough and congestion, he has COPD and is on 3 L of oxygen 22/09 at home, feels like his COPD has been flaring up for the past 5 to 7 days. No chest pain. No fevers or chills. No other known sick contacts. Lots of congestion, able to blow his nose and evacuate his nasal cavity, no facial pain or pressure. No headaches. No lower extremity edema or chest discomfort/angina symptoms. [facility] Medical History Abrasion Anxiety Benign essential HTN Bronchiectasis CAD (coronary artery disease) Cancer Cardiology follow-up encounter Chest pain Chronic cough Chronic hypoxemic respiratory failure COPD (chronic obstructive pulmonary disease) Former smoker High cholesterol History of steroid therapy History of stress test History of weight loss HLD (hyperlipidemia) Injury of back No pertinent family history Nocturnal hypoxemia On home oxygen therapy Prostate CA Prostate disease Shortness of breath on exertion Stage 3 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 Syncope Tobacco dependence in remission Wears dentures Wears glasses Home Medications aspirin 81 mg chewable tablet 81 mg PO DAILY@0800 heart health 12/29/14 [History Last Taken 07/08/20] nitroglycerin 0.4 mg sublingual tablet 0.4 mg sublingual PRN PRN Chest Pain 12/29/14 [History Last Taken 1 Week Ago ~07/02/20] clopidogrel 75 mg tablet 75 mg PO DAILY blood thinner 04/19/16 [History Last Taken 07/08/20] albuterol sulfate 2.5 mg/3 mL (0.083 %) solution for nebulization 2.5 mg (3 mL) inhalation Q4H PRN J44.9 COPD #120 vials 02/14/20 [Rx Last Taken 3 Weeks Ago ~06/18/20] atorvastatin 20 mg tablet (Lipitor) 20 mg PO DAILY cholesterol 07/09/20 [History Last Taken 07/08/20] guaifenesin 1,200 mg tablet, extended release 12 hr (Mucinex) 1,200 mg PO BID congestion 07/09/20 [History Last Taken 08/14/20] lorazepam 1 mg tablet (Ativan) 0.5 - 1 mg PO TID PRN Anxiety 07/09/20 [History Last Taken 07/09/20] polyethylene glycol 3350 17 gram oral powder packet (Miralax) 17 g PO BID PRN Constipation 07/09/20 [History Last Taken 07/09/20] acetaminophen 325 mg tablet (Tylenol) 650 mg PO Q4H PRN Pain 08/13/20 [History Last Taken 08/14/20] prednisone 10 mg tablet 10 mg PO QDAY #90 tabs 02/07/21 [Rx Last Taken Unknown] albuterol sulfate 90 mcg/actuation aerosol inhaler (ProAir HFA) 2 puff inhalation Q4H PRN shortness of breath or wheezing #8.5 grams 08/07/21 [Rx Last Taken Unknown] tiotropium bromide 2.5 mcg/actuation mist for inhalation (Spiriva Respimat) 2 puff inhalation Q24H copd #4 grams 09/20/21 [Rx Last Taken Unknown] budesonide-formoterol HFA 160 mcg-4.5 mcg/actuation aerosol inhaler (Symbicort) 2 puff inhalation BID #10.2 grams 11/19/21 [Rx Last Taken Unknown] doxycycline monohydrate 100 mg capsule 100 mg PO BID #20 CAPSULES 12/15/21 [Rx Last Taken Unknown] prednisone 10 mg tablet 10 mg PO UD #38 tabs 12/15/21 [Rx Last Taken Unknown] Allergy/AdvReac Type Severity Reaction Status Date / Time isosorbide [From Imdur] Allergy Other-patient Verified 12/15/21 12:05 blacks out Family History Other No pertinent family history Surgical History Hx of CABG Hx of heart artery stent Hx of pneumonectomy Hx of transurethral resection of prostate No pertinent past surgical history Social History Smoking Status: Former smoker Tobacco: How many years used: 45 Electronic Cigarette Use: not used how long ago did patient quit smokin, second hand exposure: Yes alcohol intake: never substance use type: does not use ROS ROS ED Constitutional Constitutional ED: Denies chills or fever(s) Eyes Eyes: Denies change in vision or diplopia ENT ENT ED: Reports nasal congestion and rhinorrhea; Denies ear pain, facial pain, headache(s), loss taste/smell or sore throat Cardiovascular Cardiovascular: Denies chest pain, leg edema, orthopnea or palpitations Respiratory/Chest Respiratory/Chest: Reports cough, dyspnea, dyspnea on exertion, sputum and wheezing; Denies orthopnea Gastrointestinal Gastrointestinal: Denies abdominal pain, diarrhea, nausea or vomiting Genitourinary Genitourinary ED: Denies dysuria or hematuria Musculoskeletal Musculoskeletal: Denies back pain or neck pain Integumentary Denies abscess or rash Neurologic Neurologic: Denies headache(s), paresthesias or weakness Psychiatric Psychiatric: Denies anxiety or suicidal thoughts EXAM Physical Exam Const Vital Signs: 12/15/21 12:05 12/15/21 12:08 12/15/21 12:08 Temperature 98.9 F 98.9 F Temperature Source Temporal Temporal Pulse Rate 65 65 Respiratory Rate 31 H 31 H Respiratory Effort Short of Breath Labored Accessory Muscle Use Blood Pressure 162/80 H 162/80 H Blood Pressure Mean 107 107 Pulse Ox 97 97 Oxygen Delivery Method Nasal Cannula Venturi Mask Venturi Mask Oxygen Flow Rate (L/min) 3 3 3 12/15/21 12:32 12/15/21 12:32 12/15/21 12:32 Temperature Temperature Source Pulse Rate 105 H Respiratory Rate 31 H 24 H Respiratory Effort Short of Breath Labored Accessory Muscle Use Blood Pressure Blood Pressure Mean Pulse Ox 94 94 Oxygen Delivery Method Nasal Cannula Nasal Cannula Oxygen Flow Rate (L/min) 3 3 12/15/21 12:57 12/15/21 13:35 12/15/21 13:40 Temperature Temperature Source Pulse Rate 109 H 106 H 111 H Respiratory Rate 28 H 20 H 20 H Respiratory Effort Blood Pressure 137/87 H Blood Pressure Mean 103 Pulse Ox 97 Oxygen Delivery Method Nasal Cannula Oxygen Flow Rate (L/min) 3 Positive well nourished and well developed General Appearance ED: well developed and NAD HEENT Reports moist mucous membranes normocephalic and atraumatic Eyes PERRL and EOMs intact bilaterally Neck full ROM, no lymphadenopathy, supple, no meningeal signs and no JVD Resp Resp Narrative: Diminished throughout, symmetrically. Mild wheezes throughout. Tachypneic but in no respiratory distress. Auscultation: Negative for rales, rhonchi or wheezes Cardio regular rate, regular rhythm and no murmurs Cardio Narrative: Frequent irregularity consistent with PVCs on the monitor GI non-tender and non-distended Auscultation: normoactive bowel sounds Palpation: soft Back/Spine no CVA tenderness General Back: other FROM Extremity normal to inspection General Extremety ED: Negative for edema, pulses abnormal or tenderness General Extremity: Negative for edema or pulses abnormal Neuro oriented x3, CN's II-XII intact bilaterally and no sensory deficits noted Sensorium / Orientation: awake and alert Motor Exam: strength 5/5 throughout Skin no rashes or lesions noted and no wounds MDM MDM MDM Narrative Medical decision making narrative: 1 view chest x-ray on my interpretation negative for pneumonia, radiology in agreement, COPD changes noted. Patient is feeling better after nebulizer treatments. He was 98% on his home 3 L prior to any of that. COVID and influenza negative. Will prescribe doxycycline to prevent bacterial superinfection, he was reassured this is probably viral and the antibiotic is not meant to cure him. He is already on prednisone 10 mg every morning, he took that this morning. We gave him Solu-Medrol 125 here. He is given a new prescription for a prednisone taper that he should start tomorrow, and it will end with him going back to his 10 mg daily, he understands that. Radiography Diagnostic Testing: Clinical Impression(s) from Imaging Studies Chest X-Ray 12/15/21 12:25 IMPRESSION: Bilateral pleural parenchymal density suggestive of scarring. Electronically Signed: Chin Ross MD at 12:36 EDT , Rhythm Strip Rhythm Strip: Sinus Rhythm Rate: 85 Ectopy: PVC(s) Discharge Plan Triage Chief Complaint: Shortness of Breath ED Provider: Aj Hughes Dx/Rx/DC Orders Clinical Impression: COPD with acute exacerbation, Acute bronchitis Instructions: ED COPD Flare Prescriptions: New prednisone 10 MG tablet 10 mg PO UD Qty: 38 0RF Rx Instructions: Take 4 tablets daily for 5 days, then 3 daily for 4 days, then 2 daily for 3 days doxycycline monohydrate 100 MG capsule 100 mg PO BID Qty: 20 0RF Continued albuterol sulfate [ProAir HFA] 90 mcg/actuation HFA aerosol inhaler 2 puff INHALATION Q4H PRN (Reason: shortness of breath or wheezing) Qty: 8.5 6RF nitroglycerin 0.4 MG tablet 0.4 mg SL PRN PRN (Reason: Chest Pain) Label Comments: Chest pain aspirin 81 MG tablet,chewable 81 mg PO DAILY@0800 Label Comments: heart, blood thinner clopidogrel 75 MG tablet 75 mg PO DAILY atorvastatin [Lipitor] 20 mg tablet 20 mg PO DAILY Label Comments: TAKE 1 TABLET BY MOUTH EVERY DAY polyethylene glycol 3350 [Miralax] 17 gram Powder In Packet 17 g PO BID PRN (Reason: Constipation) lorazepam [Ativan] 1 mg tablet 0.5 - 1 mg PO TID PRN (Reason: Anxiety) Label Comments: TAKE 1 TABLET BY MOUTH THREE TIMES DAILY FOR 90 DAYS. Mucinex 1,200 mg Tablet Extended Release 12hr 1,200 mg PO BID acetaminophen [Tylenol] 325 mg Tablet 650 mg PO Q4H PRN (Reason: Pain) albuterol sulfate 2.5 mg /3 mL (0.083 %) solution for nebulization 2.5 mg INHALATION Q4H PRN (Reason: J44.9 COPD) Qty: 120 6RF Spiriva Respimat 2.5 mcg/actuation mist 2 puff INHALATION Q24H Qty: 4 6RF Rx Instructions: administer at approximately the same time(s) each day budesonide-formoterol [Symbicort] 160-4.5 mcg/actuation HFA aerosol inhaler 2 puff inhalation BID Qty: 10.2 6RF Held prednisone 10 mg tablet 10 mg PO QDAY Qty: 90 3RF Hold Instructions: Resume on 12/28/21. hold while on prednisone burst & taper Primary Care Provider: Dillan Cummins Referrals: Dillan Cummins MD [Primary Care Provider] - 1 Week if not improving Disposition Disposition: Home, Self Care
[2021-12-15] MEDS: Ipratropium/Albuterol Sulfate 3 ML AMPUL.NEB INHALATION (12:31)
[2021-12-15] MEDS: MethylPREDNISolone 125 MG/2 ML Vial IV (12:48)
[2021-12-15] MEDS: Albuterol 2.5 MG/3 ML VIAL.NEB. INHALATION ×3 (12:57→13:48)
== END 2021-12-15 14:08 | disposition home or self-care (01) ==
PROVIDERS: Emergency Provider Emergency Medicine; PCP Family Medicine; Visit Provider Emergency Medicine
DX: J20.9 Acute bronchitis, unspecified (principal); J44.1 Chronic obstructive pulmonary disease with (acute) exacerbation; I25.10 Atherosclerotic heart disease of native coronary artery without angina pectoris; E78.00 Pure hypercholesterolemia, unspecified; I10 Essential (primary) hypertension; E78.5 Hyperlipidemia, unspecified; Z87.891 Personal history of nicotine dependence
CPT/HCPCS: 71045; 87428; 94640; 96374; 99251; 99285; A4216; G0463

== ENCOUNTER 2022-01-25 13:18 | Emergency (ER) | payer MEDICARE, BC, SELFPAY ==
[2022-01-25 13:20] VITALS: BP 172/76; PULSE 106; RESP 25; TEMP 36.7; O2SAT 98; BMI 24.4
[2022-01-25 14:32] VITALS: BP 172/76; PULSE 106; RESP 25; TEMP 36.7; O2SAT 98
--- NOTE | 2022-01-25 15:38 | ED.VIS.LOWEX ---
HPI History of Present Illness HPI Narrative: Cracks in the skin on the heel of his right foot not red. Chief Complaint: Wound Informant: patient and spouse/S.O. Occured/Mechanism Mechanism/Context: No injury and No blunt trauma Onset/Context/Timing Onset: Days Context: Gradual Onset Timing: Continuous Current Severity: Mild Maximum Severity: Mild Associated Symptoms Associated Symptoms: Negative for Parasthesia, Weakness or Loss of Funtion Narrative Narrative: 81-year-old male history of CAD, CABG and COPD on 3 L oxygen at home. States he had some cracked skin to the bottom of his right heel last several days its become red. Tender. No pus. No fever. He is not diabetic. Prior similar symptoms: No Recent Illness/Hospitalization: No PFSH PFSH Medical History Abrasion Anxiety Benign essential HTN Bronchiectasis CAD (coronary artery disease) Cancer Cardiology follow-up encounter Chest pain Chronic cough Chronic hypoxemic respiratory failure COPD (chronic obstructive pulmonary disease) Former smoker High cholesterol History of steroid therapy History of stress test History of weight loss HLD (hyperlipidemia) Injury of back No pertinent family history Nocturnal hypoxemia On home oxygen therapy Prostate CA Prostate disease Shortness of breath on exertion Stage 3 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 Syncope Tobacco dependence in remission Wears dentures Wears glasses Home Medications aspirin 81 mg chewable tablet 81 mg PO DAILY@0800 heart health 12/29/14 [History Last Taken 07/08/20] nitroglycerin 0.4 mg sublingual tablet 0.4 mg sublingual PRN PRN Chest Pain 12/29/14 [History Last Taken 1 Week Ago ~07/02/20] clopidogrel 75 mg tablet 75 mg PO DAILY blood thinner 04/19/16 [History Last Taken 07/08/20] albuterol sulfate 2.5 mg/3 mL (0.083 %) solution for nebulization 2.5 mg (3 mL) inhalation Q4H PRN J44.9 COPD #120 vials 02/14/20 [Rx Last Taken 3 Weeks Ago ~06/18/20] atorvastatin 20 mg tablet (Lipitor) 20 mg PO DAILY cholesterol 07/09/20 [History Last Taken 07/08/20] guaifenesin 1,200 mg tablet, extended release 12 hr (Mucinex) 1,200 mg PO BID congestion 07/09/20 [History Last Taken 08/14/20] lorazepam 1 mg tablet (Ativan) 0.5 - 1 mg PO TID PRN Anxiety 07/09/20 [History Last Taken 07/09/20] polyethylene glycol 3350 17 gram oral powder packet (Miralax) 17 g PO BID PRN Constipation 07/09/20 [History Last Taken 07/09/20] acetaminophen 325 mg tablet (Tylenol) 650 mg PO Q4H PRN Pain 08/13/20 [History Last Taken 08/14/20] albuterol sulfate 90 mcg/actuation aerosol inhaler (ProAir HFA) 2 puff inhalation Q4H PRN shortness of breath or wheezing #8.5 grams 08/07/21 [Rx Last Taken Unknown] tiotropium bromide 2.5 mcg/actuation mist for inhalation (Spiriva Respimat) 2 puff inhalation Q24H copd #4 grams 09/20/21 [Rx Last Taken Unknown] budesonide-formoterol HFA 160 mcg-4.5 mcg/actuation aerosol inhaler (Symbicort) 2 puff inhalation BID #10.2 grams 11/19/21 [Rx Last Taken Unknown] doxycycline monohydrate 100 mg capsule 100 mg PO BID #20 CAPSULES 12/15/21 [Rx Last Taken Unknown] prednisone 10 mg tablet 10 mg PO QDAY #90 tabs 01/15/22 [Rx Last Taken Unknown] cephalexin 500 mg capsule 500 mg PO Q6 #40 caps 01/25/22 [Rx Last Taken Unknown] Allergy/AdvReac Type Severity Reaction Status Date / Time isosorbide [From Imdur] Allergy Other-patient Verified 01/25/22 13:19 blacks out Family History Other No pertinent family history Surgical History Hx of CABG Hx of heart artery stent Hx of pneumonectomy Hx of transurethral resection of prostate No pertinent past surgical history Social History Smoking Status: Former smoker Tobacco: How many years used: 45 Electronic Cigarette Use: not used how long ago did patient quit smokin, second hand exposure: Yes alcohol intake: never substance use type: does not use ROS ROS ED ROS Narrative Denies. Review of Systems ROS Unobtainable: Denies due to encephalopathy Constitutional Constitutional ED: Denies chills or fever(s) Eyes Eyes: Denies blurry vision ENT ENT ED: Denies ear pain Cardiovascular Cardiovascular: Denies chest pain Respiratory/Chest Respiratory/Chest: Denies cough Gastrointestinal Gastrointestinal: Denies abdominal pain Genitourinary Genitourinary ED: Denies dysuria or hematuria Musculoskeletal Musculoskeletal: Denies arthralgias Integumentary Denies abscess Neurologic Neurologic: Denies headache(s) Psychiatric Psychiatric: Denies anxiety Endocrine Endocrinology: Denies polydipsia Hematologic/Lymphatic Hematologic/Lymphatic: Denies easy bleeding Allergic/Immunologic Allergic/Immunologic ED: Denies mouth swelling or tongue swelling EXAM Physical Exam Narrative Exam Narrative: Seven 11-year-old male no acute distress. Vital signs stable afebrile. present in room. H EENT exam unremarkable. Moist Riis membranes. Lungs clear. Heart regular rhythm no murmur rate about 100. Abdomen soft nontender. Moving all 4 extremities. He has 2 cracks in the skin on the bottom of his right heel posterior aspect. Both are red mildly tender. No pus. No abscess. No drainage or discharge. No lymphangitic streaking. No calf or thigh pain. No inguinal lymphadenopathy. Foot is neurovascular intact with normal dorsi and plantar flexion. Normal touch sensation. Const Vital Signs: 01/25/22 13:20 01/25/22 14:32 Temperature 98.0 F 98.0 F Temperature Source Temporal Temporal Pulse Rate 106 H 106 H Respiratory Rate 25 H 25 H Blood Pressure 172/76 H 172/76 H Blood Pressure Mean 108 108 Pulse Ox 98 98 Oxygen Delivery Method Nasal Cannula Nasal Cannula Oxygen Flow Rate (L/min) 3 Positive well nourished and well developed; Negative for obese, cachectic, contractures or unkempt General Appearance ED: well developed and NAD; Negative for unkempt, cachectic or contractures Nutritional Appearance: Negative for cachectic or obese HEENT Reports moist mucous membranes normocephalic and atraumatic; Negative for trauma or tenderness Eyes PERRL General Eye ED: Negative for other Neck full ROM and supple Thyroid: Negative for tender Lymph Lymphatic: Negative for other Chest Wall inspection of chest normal and palpation of chest normal Chest: Negative for other Resp normal respiratory effort, no retractions and clear to auscultation bilaterally Effort and Inspection: Negative for pain with movement Auscultation: Negative for rales, rhonchi or wheezes Cardio regular rate, regular rhythm, S1 normal heart sound, S2 normal heart sound and no murmurs Rate: Negative for bradycardia or tachycardic Rhythm: Negative for abnormal rhythm Bruits: Negative for other GI non-tender, non-distended and no masses Inspection: Negative for abdominal distention Auscultation: normoactive bowel sounds Palpation: soft; Negative for tender or guarding Back/Spine no CVA tenderness General Back: Negative for CVA tenderness Cervical Spine: Negative for cervical spine tenderness Thoracic Spine / Upper Back: Negative for thoracic spinal tenderness Lumbar Spine / Lower Back: Negative for lumbar spinal tenderness Extremity full ROM; Negative for normal to inspection Extremity Narrative: Wounds bottom of his right foot. Both are red and tender. Consistent with early cellulitis. No abscess. No discharge. General Extremety ED: Negative for cyanosis or edema General Extremity: Negative for cyanosis or edema Neuro oriented x3 and moves all extremities Sensorium / Orientation: alert, oriented to person, oriented to place and oriented to time; Negative for orientation impaired, confused, lethargic or stuporous Motor Exam: strength 5/5 throughout Psych mental status grossly normal Appearance: Negative for unkempt Speech: No other Mood & Affect: Negative for anxious Skin No no wounds Lesions: no lesions Trauma: Negative for abrasion, laceration or puncture MDM MDM MDM Narrative Medical decision making narrative: Patient with wounds on the bottom of his right heel have signs of early infection with cellulitis. No pus or discharge. No lymphangitic streaking. No inguinal lymphadenopathy. He will be started on Keflex first dose given here. 4 times a day for 10 days. He has appointment to see his perinatology physician with the [facility] on Thursday. Discharge Plan Triage Chief Complaint: Wound ED Provider: Aaron Hurst Dx/Rx/DC Orders Clinical Impression: Cellulitis, History of COPD, History of coronary artery disease Instructions: ED Cellulitis Prescriptions: New cephalexin 500 mg capsule 500 mg PO Q6 Qty: 40 0RF No Action albuterol sulfate [ProAir HFA] 90 mcg/actuation HFA aerosol inhaler 2 puff INHALATION Q4H PRN (Reason: shortness of breath or wheezing) Qty: 8.5 6RF nitroglycerin 0.4 MG tablet 0.4 mg SL PRN PRN (Reason: Chest Pain) Label Comments: Chest pain aspirin 81 MG tablet,chewable 81 mg PO DAILY@0800 Label Comments: heart, blood thinner clopidogrel 75 MG tablet 75 mg PO DAILY atorvastatin [Lipitor] 20 mg tablet 20 mg PO DAILY Label Comments: TAKE 1 TABLET BY MOUTH EVERY DAY polyethylene glycol 3350 [Miralax] 17 gram Powder In Packet 17 g PO BID PRN (Reason: Constipation) lorazepam [Ativan] 1 mg tablet 0.5 - 1 mg PO TID PRN (Reason: Anxiety) Label Comments: TAKE 1 TABLET BY MOUTH THREE TIMES DAILY FOR 90 DAYS. Mucinex 1,200 mg Tablet Extended Release 12hr 1,200 mg PO BID acetaminophen [Tylenol] 325 mg Tablet 650 mg PO Q4H PRN (Reason: Pain) doxycycline monohydrate 100 MG capsule 100 mg PO BID Qty: 20 0RF albuterol sulfate 2.5 mg /3 mL (0.083 %) solution for nebulization 2.5 mg INHALATION Q4H PRN (Reason: J44.9 COPD) Qty: 120 6RF Spiriva Respimat 2.5 mcg/actuation mist 2 puff INHALATION Q24H Qty: 4 6RF Rx Instructions: administer at approximately the same time(s) each day budesonide-formoterol [Symbicort] 160-4.5 mcg/actuation HFA aerosol inhaler 2 puff inhalation BID Qty: 10.2 6RF prednisone 10 mg tablet 10 mg PO QDAY Qty: 90 3RF Hold Instructions: Resume on 12/28/21. hold while on prednisone burst & taper Primary Care Provider: Dillan Cummins Referrals: Dillan Cummins MD [Primary Care Provider] - Prashanth Drew DPM [Med Staff - Active Staff] - Keep Regan appointment Activity Restrictions/Additional Instructions: Keflex antibiotic 1 pill 4 times a day for 10 days. Keep your scheduled appointment with your perinatology physician and follow-up with him on Thursday. Return here if a lot worse before that time. Skin cream once the infection starts healing to help the wounds in your heels heal out. Disposition Disposition: Home, Self Care
[2022-01-25] MEDS: Cephalexin 250 MG Capsule 500 MG PO (15:42)
[2022-01-25 15:43] VITALS: BP 138/84; PULSE 85; RESP 16; O2SAT 100
== END 2022-01-25 15:53 | disposition home or self-care (01) ==
PROVIDERS: Emergency Provider Emergency Medicine; PCP Family Medicine; Visit Provider Emergency Medicine
DX: L03.115 Cellulitis of right lower limb (principal); I25.10 Atherosclerotic heart disease of native coronary artery without angina pectoris; Z99.81 Dependence on supplemental oxygen; Z95.1 Presence of aortocoronary bypass graft; Z87.891 Personal history of nicotine dependence
CPT/HCPCS: 99283; A4216

== ENCOUNTER → 2022-04-09 | Outpatient (CLI) | payer MEDICARE, BC, SELFPAY ==
[2022-04-09 16:15] LABS: PSA,Total- Diagnostic 0.18 ng/mL (0.0-4.0)
== END | disposition home or self-care (01) ==
LOC: LAB 13:18
PROVIDERS: PCP Family Medicine; Referring Provider Registered Nurse; Visit Provider Registered Nurse
DX: C61 Malignant neoplasm of prostate (principal)
CPT/HCPCS: 36415; 84153

== ENCOUNTER 2022-11-24 13:55 | Emergency (ER) | payer MEDICARE, BC, SELFPAY ==
[2022-11-24 13:55] VITALS: BP 135/74; PULSE 109; RESP 22; TEMP 35.5; O2SAT 93; BMI 25.7
[2022-11-24 14:55] VITALS: BP 148/78; PULSE 64; RESP 14; O2SAT 98
[2022-11-24 15:00] VITALS: BP 148/78; PULSE 79; RESP 18; O2SAT 97
--- NOTE | 2022-11-24 15:01 | CT_ITS ---
EXAM: CT ANGIOGRAPHY CHEST WITHOUT AND WITH INTRAVENOUS CONTRAST CLINICAL INDICATION: left pleuritic pain TECHNIQUE: Helically acquired angiography images were obtained of the chest without and with intravenous contrast. This CT exam was performed using one or more of the following dose reduction techniques: automated exposure control, adjustment of the mA and/or kV according to patient size, and/or use of iterative reconstruction technique. MIP reconstructed images were created and reviewed. CONTRAST: IV 100mL [id number] COMPARISON: 02/08/2020 FINDINGS: PULMONARY ARTERIES: Unremarkable. Normal in caliber. No evidence of pulmonary embolism. AORTA: Unremarkable. Normal in caliber. No evidence of dissection. GREAT VESSELS OF AORTIC ARCH: Unremarkable. Normal in caliber. No evidence of dissection. LUNGS AND PLEURAL SPACES: There is an extrapleural collection of gas in the left lung base which may represent a small loculated pneumothorax. This is the site of previous effusion or empyema. Slightly spiculated lesion in the superior segment of the left lower lobe seen on series 2 image 159 that measures 1.1 x 0.9 cm. There is minimal consolidation right lower lobe which is stable. There is persistent spiculated area in the left upper lobe may represent scar formation. There is mild emphysematous changes in the lung apices. There are pleural calcifications at the left base. HEART: There are coronary artery calcifications present. Heart size is normal. No pericardial effusion. MEDIASTINUM: Unremarkable. No mediastinal or hilar adenopathy. Esophagus is unremarkable. No hiatal hernia. THYROID: Unremarkable. No thyroid lesions. BONES/JOINTS: There are old nonhealed left-sided rib fractures. No suspicious lytic or blastic abnormality. GALLBLADDER AND BILE DUCTS: There are tiny gallstones present. There is no inflammation. CT/CTA Chest W/WO Contrast IMPRESSION: 1. No evidence of pulmonary embolus. 2. A small extrapleural collection of gas in the left base. This is at the site of the previous effusion or empyema. There are pleural calcifications present at the site. 3. Slightly spiculated lesion seen within the left apex and superior segment of the left lower lobe which may represent areas of scar formation or possibly underlying malignancy. If indicated further evaluation with PET/CT scan may be beneficial. Electronically Signed: Chuckie Ford MD at 16:16 EDT ,
--- NOTE | 2022-11-24 15:05 | EX.ED.DYSGE1 ---
HPI History of Present Illness Chief Complaint: Chest Pain Informant: patient and spouse/S.O. Narrative Narrative: P{t Presents with concern for pulmonary embolus. This patient has a history of prostate cancer that was treated with radiation. That is considered treated and was over 5 years ago. History of a nodule on his left lower chest. This was excised. No chemo or radiation. But he has chronic inflammatory changes there. Patient had a CAT scan of his chest last week for recheck. But then he told his doctor afterwards that he was having some left-sided chest pain. He was sent in for possible pulmonary embolus. But the patient tells me he gets pain down there not uncommonly. He had a biopsy of the pulmonary lesion about 2-1/2 years ago. It took multiple attempts. It caused a draining area and a pneumothorax. He was transferred up to [facility]. They ended up doing surgery to remove the nodule. But he had a residual collection of fluid and small localized pneumothorax. They decided it was not appropriate to go to do any further therapy. He has had that ever since. He occasionally gets pain in the area. His CT done just last week that I looked at on [facility] shows that he has a localized pneumothorax in that area. They are not here to do anything about this as this is evidently been a chronic issue. Patient does state and his states that he has had mild worsening of his COPD in the last few weeks but is not uncommon for that to happen. But he does not feel sick. He is not coughing any different than normal. No fevers or chills. The pain down the left anterior chest is actually not terribly uncommon but it is a little worse. [facility] Medical History Abrasion Anxiety Benign essential HTN Bronchiectasis CAD (coronary artery disease) Cancer Cardiology follow-up encounter Chest pain Chronic cough Chronic hypoxemic respiratory failure COPD (chronic obstructive pulmonary disease) Former smoker High cholesterol History of steroid therapy History of stress test History of weight loss HLD (hyperlipidemia) Injury of back No pertinent family history Nocturnal hypoxemia On home oxygen therapy Prostate CA Prostate disease Shortness of breath on exertion Stage 3 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 Syncope Tobacco dependence in remission Wears dentures Wears glasses Home Medications aspirin 81 mg chewable tablet 81 mg PO DAILY@0800 [facility] 10/30/15 [History Last Taken 07/08/20] nitroglycerin 0.4 mg sublingual tablet 0.4 mg sublingual PRN PRN Chest Pain 12/29/14 [History Last Taken 1 Week Ago ~07/02/20] clopidogrel 75 mg tablet 75 mg PO DAILY blood thinner 04/19/16 [History Last Taken 07/08/20] albuterol sulfate 2.5 mg/3 mL (0.083 %) solution for nebulization 2.5 mg (3 mL) inhalation Q4H PRN J44.9 COPD #120 vials 02/14/20 [Rx Last Taken 3 Weeks Ago ~06/18/20] atorvastatin 20 mg tablet (Lipitor) 20 mg PO DAILY cholesterol 07/09/20 [History Last Taken 07/08/20] guaifenesin 1,200 mg tablet, extended release 12 hr (Mucinex) 1,200 mg PO BID congestion 07/09/20 [History Last Taken 08/14/20] lorazepam 1 mg tablet (Ativan) 0.5 - 1 mg PO TID PRN Anxiety 07/09/20 [History Last Taken 07/09/20] polyethylene glycol 3350 17 gram oral powder packet (Miralax) 17 g PO BID PRN Constipation 07/09/20 [History Last Taken 07/09/20] acetaminophen 325 mg tablet (Tylenol) 650 mg PO Q4H PRN Pain 08/13/20 [History Last Taken 08/14/20] prednisone 10 mg tablet 10 mg PO QDAY #90 tabs 01/15/22 [Rx Last Taken Unknown] oxycodone 5 mg tablet 2.5 mg PO Q6H PRN 02/05/22 [History Last Taken Unknown] tiotropium bromide 2.5 mcg/actuation mist for inhalation (Spiriva Respimat) 2 puff inhalation Q24H copd #4 grams 04/14/22 [Rx Last Taken Unknown] levalbuterol tartrate 45 mcg/actuation aerosol inhaler 2 inh inhalation Q4H PRN shortness of breath or wheezing #15 grams 07/25/22 [Rx Last Taken Unknown] fluticasone propionate 230 mcg-salmeterol 21 mcg/actuation HFA inhaler (Advair HFA) 2 puff inhalation BID 08/07/22 [History Last Taken Unknown] Allergy/AdvReac Type Severity Reaction Status Date / Time isosorbide [From Imdur] Allergy Other-patient Verified 11/24/22 13:57 blacks out Family History Other No pertinent family history Surgical History Hx of CABG Hx of heart artery stent Hx of pneumonectomy Hx of transurethral resection of prostate No pertinent past surgical history Social History Smoking Status: Former smoker Tobacco: How many years used: 45 Electronic Cigarette Use: not used how long ago did patient quit smokin, second hand exposure: Yes alcohol intake: never substance use type: does not use ROS ROS ED ROS Narrative A complete review of systems was performed and is negative except as documented in the history of present illness. Some specific details below. Constitutional: No recent fevers or chills. Malaise. EYE: No discharge, visual complaints, or pain. ENT: No difficulty swallowing. No swelling. No pain. No reflux symptoms. CV: Potation's. He does have some left lower chest pain. See history of present illness. Respiratory: See history of present illness. Worsening of COPD. But he is on 3 L of oxygen all the time and does not feel the need to increase this. He feels comfortable now. GI: No abdominal pain. No nausea vomiting diarrhea. No blood in stool. : No frequency dysuria or hematuria. Musculoskeletal: No recent trauma. No pains. No swelling. Skin: No rash. Nondiaphoretic. Neuro: No weakness or numbness. Endocrine: No polyuria or polydipsia. EXAM Physical Exam Narrative Exam Narrative: CONSTITUTIONAL: Patient is nontoxic in appearance. The patient looks comfortable. Work of breathing looks normal. He carries on a normal conversation. HEENT: No notable trauma. Mucous membranes moist. No sinus tenderness. No indication of pain with swallowing. EYES: No conjunctival injection. No proptosis. NECK:No JVD. No stridor. CARDIOVASCULAR: Regular rate. Regular rhythm. No notable murmur. No JVD. RESPIRATORY: No respiratory distress. Breathing is unlabored. Does have a few coarse breath sounds more on the left. He does have some slight expiratory wheezing on the left. But his saturations are 100% on 3 L on the monitor while I am in the room. He is not coughing. He speaks easily with no dyspnea or pause in his speech. He does have some slight tenderness over the left lower rib cage. But again he states is not too uncommon for that to occur. GASTROINTESTINAL: Not distended. Bowel sounds are normal. No tenderness. No guarding. No rebound. No palpable mass. No bruit is heard. GENITOURINARY: No tenderness over the bladder. No CVA tenderness. MUSCULOSKELETAL: Atraumatic. No notable or abnormal peripheral edema. No cord. No tenderness along the deep venous system. No asymmetry. No distended veins. NEUROLOGICAL: Patient is alert and appropriate. No focal deficit noted. SKIN: No noted rashes. No diaphoresis. PSYCHIATRIC: Patient is calm. Mood is appropriate. Const Vital Signs: 11/24/22 13:55 11/24/22 13:55 11/24/22 15:15 Temperature 96 F L Temperature Source Temporal Pulse Rate 109 H 78 Respiratory Rate 22 H 15 Respiratory Effort Short of Breath Respiratory Pattern Normal Blood Pressure 135/74 H Blood Pressure Mean 94 Pulse Ox 93 Oxygen Delivery Method Nasal Cannula Oxygen Flow Rate (L/min) 3 11/24/22 15:15 11/24/22 14:55 11/24/22 15:00 Temperature Temperature Source Pulse Rate 64 79 Respiratory Rate 14 18 Respiratory Effort Respiratory Pattern Blood Pressure 148/78 H 148/78 H Blood Pressure Mean 101 101 Pulse Ox 100 98 97 Oxygen Delivery Method Nasal Cannula Room Air Nasal Cannula Oxygen Flow Rate (L/min) 3 3 MDM MDM MDM Narrative Medical decision making narrative: BC shows a mild nonspecific elevation of his white count. Platelets are normal. Electrolytes are normal other than glucose at 175. My independent interpretation of the CT scan of the chest shows no PE. But there is a loculated area with scarring at the left base. There is a little local collection of air but I do not see an air-fluid level. Final reading shows this area. No pulmonary embolus was seen. This area to me looks chronic and does not look like there is a lot of inflammatory change. Per family and patient this has been known about for a long time and the plan is to watch this area. The plan is to not go back and do surgery. They feel he is too much risk for the benefit. Although this is a very abnormal scan and it is not in his area of pain it sounds like this is a known issue. I am not I will find out from the patient that he actually had a pain block to block the pain from this area about a year or so ago. It helped quite a bit and he was going to call Dr. Hsieh to have another 1 of these done. I think that is reasonable. If he develops fever, worsening pain, swelling, weakness cough worsening dyspnea I think he needs to come back. Lab Data Attestation: I reviewed the patient's lab results. Labs: Laboratory Results - last 24 hr 11/24/22 14:27 WBC 12.2 H RBC 4.48 L Hgb 13.1 Hct 42.3 MCV 94.4 H MCH 29.2 MCHC 31.0 L RDW Std Deviation 50.4 H RDW Coeff of Estelita 14.6 Plt Count 184 MPV 9.3 Immature Gran % (Auto) 0.600 Neut % (Auto) 92.9 H Lymph % (Auto) 2.3 L [place] % (Auto) 3.8 Eos % (Auto) 0.2 Baso % (Auto) 0.2 Absolute Neuts (auto) 11.4 H Absolute Lymphs (auto) 0.28 L Nucleated RBC % 0 Differential Comment SEE COMMENT Diff Path Review May foll Platelet Estimate ADEQUATE Anisocytosis RARE Macrocytosis RARE Sodium 139 Potassium 4.5 Chloride 104 Carbon Dioxide 32.0 Anion Gap 3 L BUN 17 Creatinine 1.19 Estim Creat Clear Calc 52.73 Est GFR (MDRD) Af Amer 76 Est GFR (MDRD) Non-Af 63 BUN/Creatinine Ratio 14.3 Glucose 175 H Calcium 8.5 Radiography Diagnostic Testing: Clinical Impression(s) from Imaging Studies Chest CTA 11/24/22 15:01 IMPRESSION: 1. No evidence of pulmonary embolus. 2. A small extrapleural collection of gas in the left base. This is at the site of the previous effusion or empyema. There are pleural calcifications present at the site. 3. Slightly spiculated lesion seen within the left apex and superior segment of the left lower lobe which may represent areas of scar formation or possibly underlying malignancy. If indicated further evaluation with PET/CT scan may be beneficial. Electronically Signed: Chuckie Ford MD at 16:16 EDT , Discharge Plan Triage Chief Complaint: Chest Pain ED Provider: Cristi Godinez Dx/Rx/DC Orders Clinical Impression: Scarring of lung, Left-sided chest wall pain Instructions: ED Chest Pain, Uncertain Cause Prescriptions: No Action oxycodone 5 mg tablet 2.5 mg PO Q6H PRN fluticasone propion-salmeterol [Advair HFA] 230-21 mcg/actuation HFA aerosol inhaler 2 puff inhalation BID nitroglycerin 0.4 MG tablet 0.4 mg SL PRN PRN (Reason: Chest Pain) Patient Comments: Chest pain aspirin 81 MG tablet,chewable 81 mg PO DAILY@0800 Patient Comments: heart, blood thinner clopidogrel 75 MG tablet 75 mg PO DAILY atorvastatin [Lipitor] 20 mg tablet 20 mg PO DAILY Patient Comments: TAKE 1 TABLET BY MOUTH EVERY DAY polyethylene glycol 3350 [Miralax] 17 gram Powder In Packet 17 g PO BID PRN (Reason: Constipation) lorazepam [Ativan] 1 mg tablet 0.5 - 1 mg PO TID PRN (Reason: Anxiety) Patient Comments: TAKE 1 TABLET BY MOUTH THREE TIMES DAILY FOR 90 DAYS. Mucinex 1,200 mg Tablet Extended Release 12hr 1,200 mg PO BID acetaminophen [Tylenol] 325 mg Tablet 650 mg PO Q4H PRN (Reason: Pain) albuterol sulfate 2.5 mg /3 mL (0.083 %) solution for nebulization 2.5 mg INHALATION Q4H PRN (Reason: J44.9 COPD) Qty: 120 6RF prednisone 10 mg tablet 10 mg PO QDAY Qty: 90 3RF Hold Instructions: Resume on 12/28/21. hold while on prednisone burst & taper Spiriva Respimat 2.5 mcg/actuation mist 2 puff INHALATION Q24H Qty: 4 6RF Rx Instructions: administer at approximately the same time(s) each day levalbuterol tartrate 45 mcg/actuation HFA aerosol inhaler 2 inh inhalation Q4H PRN (Reason: shortness of breath or wheezing) Qty: 15 11RF Primary Care Provider: Dillan Cummins Referrals: Dillan Cummins MD [Primary Care Provider] - 3-5 Days Disposition Disposition: Home, Self Care
[2022-11-24] MEDS: Ipratropium/Albuterol Sulfate 3 ML AMPUL.NEB INHALATION (15:12)
[2022-11-24 15:15] VITALS: PULSE 78; RESP 15; O2SAT 100
[2022-11-24] MEDS: 0.9% Normal Saline (500mL Bag) 500 ML 1000 ML IV (15:15)
[2022-11-24 15:21] LABS: Absolute Lymphocyte Count 0.28 X10^3/uL (0.83-4.51); Absolute Neutrophil Count 11.4 X10^3/uL (2.0-7.7); Basophil# 0.02 X10^3/uL; Basophil% 0.2 % (0-1); Differential Indicated SCAN CRITERIA MET; Eosinophil# 0.03 X10^3/uL; Eosinophils% 0.2 % (0-5); Hematocrit 42.3 % (40-54); Hemoglobin 13.1 g/dL (13.0-16.5); Lymphocyte # 0.28 X10^3/ul (0.83-4.51); Lymphocyte % 2.3 % (19-41); Mean Corpuscular Hgb 29.2 pg (27.0-32.0); Mean Corpuscular Volume 94.4 fL (80-94); Mean Platelet Vol. 9.3 fl (6.2-12.0); Monocyte# 0.47 X10^3/uL; Monocyte% 3.8 % (0-10); NRBC Flagged by Analyzer 0 % (0-5); Neutrophil # 11.37 X10^3/uL (2.7-7.7); Neutrophil % 92.9 % (47-70); POSITIVE DIFFERENTIAL YES; Platelet Count 184 K/mm3 (150-450); RBC Distribution Width CV 14.6 % (11.6-14.6); RBC Distribution Width SD 50.4 fl (35.1-43.9); Red Blood Count 4.48 M/mm3 (4.6-6.2); White Blood Count 12.2 K/mm3 (4.4-11.0)
[2022-11-24 15:38] LABS: Anion Gap 3 (5-15); BUN 17 mg/dL (7-18); BUN/Creat Ratio 14.3 RATIO (10-20); Calcium,Total 8.5 mg/dL (8.5-10.1); Chloride 104 mmol/L (98-107); Creatinine, Serum 1.19 mg/dL (0.70-1.30); EST Glomerular Filtration Rate 63 mL/min (>60); Est Glom Filt Rate - Afr Amer 76 mL/min (>60); Estimated Creatinine Clearance 52.73 ml/min; Glucose 175 mg/dL (74-106); Potassium 4.5 mmol/L (3.5-5.1); Sodium Level 139 mmol/L (136-145)
[2022-11-24 15:48] LABS: Platelet Estimate ADEQUATE (ADEQ)
[2022-11-24 15:49] LABS: Anisocytosis RARE; Macrocytosis RARE; Pathologist Review May foll
== END 2022-11-24 17:19 | disposition home or self-care (01) ==
PROVIDERS: Emergency Provider Emergency Medicine; PCP Family Medicine; Visit Provider Emergency Medicine
DX: R07.89 Other chest pain (principal); J44.9 Chronic obstructive pulmonary disease, unspecified; Z87.891 Personal history of nicotine dependence; I10 Essential (primary) hypertension; I25.10 Atherosclerotic heart disease of native coronary artery without angina pectoris; E78.00 Pure hypercholesterolemia, unspecified; J98.4 Other disorders of lung; Z85.46 Personal history of malignant neoplasm of prostate; Z79.899 Other long term (current) drug therapy; Z79.82 Long term (current) use of aspirin; Z79.02 Long term (current) use of antithrombotics/antiplatelets; Z79.51 Long term (current) use of inhaled steroids; Z95.1 Presence of aortocoronary bypass graft; Z95.5 Presence of coronary angioplasty implant and graft
CPT/HCPCS: 71275; 80048; 85025; 93005; 94640; 99283; J7030; Q9967; A4216

== ENCOUNTER → 2023-03-03 | Outpatient (CLI) | payer MEDICARE, BC, SELFPAY ==
--- NOTE | 2023-03-03 11:30 | PET_ITS ---
EXAMINATION: FDG PET CT HISTORY: 82-year-old male with history of lung carcinoma presenting for restaging examination. COMPARISON EXAMINATION: Previous FDG PET CT study dated 11/13/2020 INDEX LESION SIZE SUV INTERPRETATION PERSISTENT: Left lower hemithorax pleural interface 4.9 compared to 2.3, 11/13/2020 Fulfills quantitative criteria for viable neoplasm, interim metabolic progression PERSISTENT: Bilateral hemithorax pulmonary parenchyma 19.4 mm 3.9 PET/PET/CT Tumor Base -Thigh Subs IMPRESSION: 1. ABNORMAL EXAMINATION INDICATIVE OF MALIGNANT-VIABLE NEOPLASM. 2. Persistent increased radiopharmaceutical concentration defined in the left lower lateral hemithorax pleural parenchymal fulfills quantitative criteria for malignant transformation. 3. Bilateral hemithorax pulmonary parenchyma nodular foci fulfill quantitative criteria for malignant transformation. 4. The enhanced tracer distribution defined in the left upper medial hemithorax at the pleural interface fulfills quantitative criteria for viable neoplasm. Associated calcification may be associated with a low likelihood of viable neoplasm. 5. Overall there is apparent interim progression of defined viable neoplastic disease. Electronic Signature David Ritter D.O. Accurate Quantification of SUVs for this report are calculated using the exclusive [employer]. ([place]. Patent No. [id number] [phone] [place] patent [id number] [phone]). Standardization and correction of the FDG SUV metric via [employer] technology allow for vendor non-specific objective quantitative examination comparison and optimization of the sensitivity and specificity of the FDG PET-CT examination. . [email or web address] Electronically Signed: David Ritter DO at 23:26 EST ,
== END | disposition home or self-care (01) ==
PROVIDERS: PCP Family Medicine; Referring Provider Internal Medicine Hematology & Oncology; Visit Provider Internal Medicine Hematology & Oncology
DX: C34.32 Malignant neoplasm of lower lobe, left bronchus or lung (principal)
CPT/HCPCS: 78815; A9552

== ENCOUNTER → 2023-03-23 | Outpatient (CLI) | payer MEDICARE, BC, SELFPAY ==
[2023-03-23 16:18] LABS: PSA,Total- Diagnostic 0.22 ng/mL (0.0-4.0)
== END | disposition home or self-care (01) ==
LOC: LAB 14:21
PROVIDERS: PCP Family Medicine; Referring Provider Urology; Visit Provider Urology
DX: C61 Malignant neoplasm of prostate (principal)
CPT/HCPCS: 36415; 84153

== ENCOUNTER 2023-03-25 12:49 | Inpatient (IN) | payer MEDICARE, BC, SELFPAY ==
[2023-03-25] VITALS (9 sets, daily range): BP systolic 117–152; BP diastolic 57–81; PULSE 79–131; RESP 16–24; TEMP 36.3–36.6; O2SAT 97–100; BMI 24.4; BMI 24.7
--- NOTE | 2023-03-25 13:05 | CT_ITS ---
We are attempting to reach an attending provider to discuss findings. An addendum with communication details will be sent when the communication is complete. STUDY: CTA CHEST REASON FOR EXAM: Male, 82 years old. Dyspnea, tachycardia, hemoptysis RADIATION DOSAGE (If Supplied By Facility): CTDIvol = ( 11.24 ) mGy, DLP = ( 356.45 ) mGycm TECHNIQUE: The examination was performed with the intravenous administration of IV 100mL Isovue-370. Post-processing of the angiographic images was performed, with multiplanar reformation and 3D reconstruction. Individualized dose optimization techniques were used for this CT. COMPARISON: Prior study dated: 11/24/2022 FINDINGS: Significant motion artifacts at the origin of the main pulmonary artery. Normal enhancement of the main pulmonary artery and right and left pulmonary arteries. Filling defect consistent with pulmonary embolism and a second branch of left lower lobe pulmonary artery. There is atherosclerotic calcification of the aortic arch and descending thoracic aorta with tortuosity. There is no demonstrated aortic dissection. Normal heart and pericardium. There are calcifications of the coronary arteries. Status post median sternotomy. Normal mediastinum. Normal hilar regions. Normal visualized trachea and bronchi. Pleural-based left lower lobe cavitary lesion measuring about 9 x 5 cm extending to the major fissure increased in size since previous examination concerning for malignancy. Adjacent stranding extending to the medial aspect of the left lower lobe which could be due to scarring. Spiculated lesions in the left upper lobe are again seen. There is a new right lower lobe pulmonary nodule or atelectasis. Scattered patchy ill-defined densities are seen. There are no pleural effusions. Normal chest wall structures. Degenerative changes of the spine. No demonstrated acute process in the visualized upper abdomen. CT/CTA Chest W/WO Contrast IMPRESSION: 1. Pulmonary embolism in second branches of left lower lobe pulmonary artery. 2. Pleural-based cavitary lesion left lower lobe increased in size since previous exam concerning for malignancy corresponding to the PET/CT abnormality. 3. Spiculated lesions in the left lung again concerning for malignancy. 4. Scattered ill-defined densities some of them new since the previous exam. Electronically Signed: Lui Nolen MD at 14:30 EST ,
--- NOTE | 2023-03-25 13:08 | EDS_ITS ---
HPI History of Present Illness Chief Complaint: Shortness of Breath Detail of Chief Complaint: Dyspnea and fei hemoptysis Informant: patient and spouse/S.O. Onset/Context/Timing Onset: Hours (Approximately 3 hours ago.) Context: Sudden Onset Timing: Continuous Quality: Shortness of breath and cough. Fei blood Location: Respiratory Current Severity: Moderate Worsened by: Dyspnea on exertion. Patient apparently has 3 new nodules near site of ryland Relieved by: Nothing Associated Symptoms Associated Symptoms: Dyspnea and dyspnea on exertion Narrative Narrative: Patient is a 82-year-old male presents with fei hemoptysis, shortness of breath, dyspnea on exertion that started 3 hours ago. He denies fever, chills night sweats. He had bronchoscopy performed several years ago and had a nodule. The procedure had complications necessitating transfer to [facility]. He was cared for by Dr. Oliverio Herrmann. He had recent follow-up studies that revealed 3 new nodules near the surgical site and a nodule on the opposite side. Patient is presently on a baby aspirin and Plavix. He is on no anticoagulant. He is on Plavix because of his heart. He denies upper respiratory tract infectious symptoms. He denies headache, visual, ocular auditory symptoms. Denies bleeding of his gums. He denies bruising easily. He denies abdominal pain, nausea, vomiting or diarrhea. He denies dysuria, frequency, urgency or hematuria. He denies bruising easily or bleeding easily. He does complain of swelling of his left lower extremity status post surgery. He denies prior history of VTE. Prior similar symptoms: No Recent Illness/Hospitalization: No PFSH [facility] Medical History Abrasion Anxiety Benign essential HTN Bronchiectasis CAD (coronary artery disease) Cancer Cardiology follow-up encounter Chest pain Chronic cough Chronic hypoxemic respiratory failure COPD (chronic obstructive pulmonary disease) Former smoker High cholesterol History of steroid therapy History of stress test History of weight loss HLD (hyperlipidemia) Injury of back No pertinent family history Nocturnal hypoxemia On home oxygen therapy Prostate CA Prostate disease Shortness of breath on exertion Stage 3 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 Syncope Tobacco dependence in remission Wears dentures Wears glasses Home Medications aspirin 81 mg chewable tablet 81 mg PO QPM heart [facility] [place] 12/29/14 [History Last Taken 03/24/23] nitroglycerin 0.4 mg sublingual tablet 0.4 mg sublingual Q5M PRN Chest Pain 12/29/14 [History Last Taken 1 Week Ago ~07/02/20] clopidogrel 75 mg tablet 75 mg PO QPM blood thinner 04/19/16 [History Last Taken 03/24/23] guaifenesin 1,200 mg tablet, extended release 12 hr (Mucinex) 1,200 mg PO BID congestion 07/09/20 [History Last Taken 03/24/23] lorazepam 1 mg tablet (Ativan) 0.5 - 1 mg PO TID PRN Anxiety 07/09/20 [History Last Taken 03/25/23] polyethylene glycol 3350 17 gram oral powder packet (Miralax) 17 g PO DAILY PRN Constipation 07/09/20 [History Last Taken 03/24/23] acetaminophen 325 mg tablet (Tylenol) 650 mg PO Q4H PRN Pain 08/13/20 [History Last Taken 03/24/23] prednisone 10 mg tablet 10 mg PO QDAY #90 tabs 01/15/22 [Rx Last Taken 03/25/23] oxycodone 5 mg tablet 2.5 - 5 mg PO Q6H PRN PAIN AND BREATHING 02/05/22 [History Last Taken 03/25/23] levalbuterol tartrate 45 mcg/actuation aerosol inhaler 2 inh inhalation Q4H PRN shortness of breath or wheezing #15 grams 07/25/22 [Rx Last Taken 03/25/23] fluticasone propionate 230 mcg-salmeterol 21 mcg/actuation HFA inhaler (Advair HFA) 2 puff inhalation BID 08/07/22 [History Last Taken 03/25/23] atorvastatin 40 mg tablet 40 mg PO QHS cholesterol 03/25/23 [History Last Taken 03/24/23] duloxetine 30 mg capsule,delayed release 30 mg PO QPM DEPRESSION 03/25/23 [History Last Taken 03/24/23] levofloxacin 500 mg tablet 500 mg PO DAILY ANTIBIOTIC 03/25/23 [History Last Taken 03/24/23] lidocaine 4 % topical patch 1 patch topical DAILY 03/25/23 [History Last Taken 03/25/23] tamsulosin 0.4 mg capsule 0.4 mg PO QPM BLADDER/ PROSTATE 03/25/23 [History Last Taken 03/25/23] tiotropium bromide 2.5 mcg/actuation mist for inhalation (Spiriva Respimat) 2 puff inhalation DAILY copd 03/25/23 [History Last Taken 03/24/23] Allergy/AdvReac Type Severity Reaction Status Date / Time isosorbide [From Imdur] Allergy Other-patient Verified 03/25/23 12:50 blacks out Family History Other No pertinent family history Surgical History Hx of CABG Hx of heart artery stent Hx of pneumonectomy Hx of transurethral resection of prostate No pertinent past surgical history Social History Smoking Status: Former smoker Tobacco: How many years used: 45 Electronic Cigarette Use: not used how long ago did patient quit smokin, second hand exposure: Yes alcohol intake: never substance use type: does not use ROS ROS ED Constitutional Constitutional ED: Denies chills, fever(s), subjective or sweats Eyes Eyes: Denies blurry vision or change in vision ENT ENT ED: Denies ear pain, rhinorrhea or sore throat Cardiovascular Cardiovascular: Denies chest pain, orthopnea, palpitations or paroxysmal nocturnal dyspnea Respiratory/Chest Respiratory/Chest: Reports cough, dyspnea, dyspnea on exertion and sputum; Denies orthopnea or paroxysmal nocturnal dyspnea Gastrointestinal Gastrointestinal: Denies abdominal pain, melena, nausea or vomiting Genitourinary Genitourinary ED: Denies dysuria or hematuria Musculoskeletal Musculoskeletal: Denies arthralgias, back pain or myalgias Integumentary Denies rash Neurologic Neurologic: Denies headache(s) or weakness Psychiatric Psychiatric: Reports anxiety Endocrine Endocrinology: Denies cold intolerance or heat intolerance Hematologic/Lymphatic Hematologic/Lymphatic: Reports systems reviewed and no addt'l complaints, except as documented EXAM Physical Exam Const Vital Signs: 03/25/23 12:50 03/25/23 12:54 03/25/23 12:54 Temperature 97.6 F L 97.8 F Temperature Source Temporal Temporal Pulse Rate 131 H 130 H Respiratory Rate 16 24 H Respiratory Effort Short of Breath Labored Pursed Lip Respiratory Depth Shallow Respiratory Pattern Tachypnea Blood Pressure 139/81 H 139/81 H Blood Pressure Mean 100 100 Pulse Ox 97 97 Oxygen Delivery Method Nasal Cannula Nasal Cannula Nasal Cannula Oxygen Flow Rate (L/min) 3 3 3 03/25/23 15:11 Temperature Temperature Source Pulse Rate 81 Respiratory Rate 16 Respiratory Effort Respiratory Depth Respiratory Pattern Blood Pressure 117/73 Blood Pressure Mean 87 Pulse Ox 98 Oxygen Delivery Method Nasal Cannula Oxygen Flow Rate (L/min) 4 Positive well nourished, well developed and obese Constitutional Narrative: Patient is in respiratory distress breathing more rapidly than 24 times a m inute. He has minimal use of accessory muscle. He is tachycardic with a narrow complex noted on the monitor with a rate of 144. Patient has fei hemoptysis. General Appearance ED: well developed; Negative for cyanotic, diaphoretic, NAD or pallor Nutritional Appearance: obese HEENT Reports moist mucous membranes HEENT Narrative: Blood noted posterior pharynx. Uvula midline. No deviation tongue with protrusion. Eyes PERRL and EOMs intact bilaterally General Eye ED: Negative for pale conjunctiva or scleral icterus Neck no lymphadenopathy, supple and no JVD Chest Wall inspection of chest normal and palpation of chest normal Resp No normal respiratory effort and clear to auscultation bilaterally Cardio regular rhythm, S1 normal heart sound, S2 normal heart sound and no murmurs Rate: tachycardic GI normal to inspection, nondistended, normoactive bowel sounds, non-tender, non- distended and no masses; Negative for hepatosplenomegaly Back/Spine General Back: CVA tenderness Thoracic Spine / Upper Back: Negative for thoracic spinal tenderness Lumbar Spine / Lower Back: Negative for lumbar spinal tenderness Extremity Extremity Narrative: Slight edema left lower extremity, which is chronic. Neuro oriented x3, CN's II-XII intact bilaterally and no sensory deficits noted Sensorium / Orientation: alert Psych mental status grossly normal Skin no rashes or lesions noted and no wounds General Skin Exam: Negative for jaundice or pallor MDM MDM MDM Narrative Medical decision making narrative: With dyspnea that started abruptly with him options need to rule out PE. Also need to consider rate malignancy with erosion into pulmonary vessel. This may also represent pneumonia and difficulty clotting since he is on aspirin and Plavix. Will obtain CTA and appropriate blood work. Will also review prior records. History & Record Review Additional record(s) reviewed:: Prior ED visit and Prior labs Lab Data Attestation: I reviewed the patient's lab results. Lab results narrative: White count elevated 15.6 with shift. There is no bandemia. Electrolyte panel is unremarkable. Glucose is 125 with a normal CO2 anion gap. Hepatic panel is normal. Labs: Laboratory Results - last 24 hr 03/25/23 03/25/23 13:00 13:20 WBC 15.6 H RBC 4.91 Hgb 13.7 Hct 45.0 MCV 91.6 MCH 27.9 MCHC 30.4 L RDW Std Deviation 51.6 H RDW Coeff of Estelita 15.3 H Plt Count 309 MPV 8.7 Immature Gran % (Auto) 0.400 Neut % (Auto) 92.4 H Lymph % (Auto) 3.7 L Grant % (Auto) 3.2 Eos % (Auto) 0.1 Baso % (Auto) 0.2 Absolute Neuts (auto) 14.4 H Absolute Lymphs (auto) 0.57 L Nucleated RBC % 0 PT 13.1 INR 1.0 APTT 27.1 Sodium 139 Potassium 4.5 Chloride 106 Carbon Dioxide 27.0 Anion Gap 6 BUN 18 Creatinine 1.03 Estim Creat Clear Calc 60.92 Est GFR (MDRD) Af Amer 89 Est GFR (MDRD) Non-Af 74 BUN/Creatinine Ratio 17.5 Glucose 125 H Lactic Acid 2.3 H* Calcium 9.5 Total Bilirubin 0.50 AST 20 ALT 20 Alkaline Phosphatase 84 Total Protein 7.4 Albumin 3.4 Globulin 4.0 Albumin/Globulin Ratio 0.8 L Radiography Diagnostic Testing: Clinical Impression(s) from Imaging Studies Chest CTA 03/25/23 13:05 IMPRESSION: 1. Pulmonary embolism in second branches of left lower lobe pulmonary artery. 2. Pleural-based cavitary lesion left lower lobe increased in size since previous exam concerning for malignancy corresponding to the PET/CT abnormality. 3. Spiculated lesions in the left lung again concerning for malignancy. 4. Scattered ill-defined densities some of them new since the previous exam. Electronically Signed: Lui Nolen MD at 14:30 EST , ADDENDUM: 03/25/23 3037 IMPRESSION: 1. Pulmonary embolism in second branches of left lower lobe pulmonary artery. 2. Pleural-based cavitary lesion left lower lobe increased in size since previous exam concerning for malignancy corresponding to the PET/CT abnormality. 3. Spiculated lesions in the left lung again concerning for malignancy. 4. Scattered ill-defined densities some of them new since the previous exam. N.B. : The above Results were Read Back by Lui Nolen MD to Randy Londono MD, and understanding confirmed on 03/25/2023 14:32:41 (ET). Electronically Signed: Lui Nolen MD at 14:30 EST , Rhythm Strip Rhythm Strip: Sinus Tach Rate: 144 Ectopy: PVC(s) (Occasional to rare) EKG Initial EKG: Attestation: I personally reviewed and interpreted this EKG as follows: Interpretation: Sinus Tachycardia (Rate is 130. There are premature ventricular complexes noted. Parables 128 ms. QS duration 70 ms. QT duration 294 ms. Elysian is normal. There are nonseptic changes which may be artifact due to his breathing.) Management Discussion w/another healthcare provider: Hospitalist (Spoke with Dr. Terrell Suazo regarding patient. Plan is admission to PCU. He was made aware of patient's history, physical and test results.) Treatment and Re-Evaluation :: Patient and his were informed of test results. He is no longer tachypneic. He is no longer in respiratory distress. Plan is anticoagulation with heparin. Patient will need to be observed since he has fei hemoptysis. Presently he is no longer coughing fei blood. Critical Care Time Critical Care Time: Yes Critical care time (excluding procedures): 30-74 minutes (31), Including time spent: (History, physical, documentation, independent or potation of laboratory results initiation of therapy, review of outside records), Discussing w/Patient &/or Family/Authorization Rep, Discussing w/Consultants and Arranging Admission or Transfer Discharge Plan Dx/Rx/DC Orders Clinical Impression: Pulmonary embolus, Pulmonary cavitary lesion, Benign essential HTN, COPD with acute exacerbation, Major hemoptysis, Acidosis, lactic, Sinus tachycardia by electrocardiogram, Pulmonary neoplasm, History of coronary artery disease Disposition Disposition: Acute Care Hospital [facility]
[2023-03-25 13:31] LABS: Absolute Lymphocyte Count 0.57 X10^3/uL (0.83-4.51); Absolute Neutrophil Count 14.4 X10^3/uL (2.0-7.7); Basophil# 0.03 X10^3/uL; Basophil% 0.2 % (0-1); Eosinophil# 0.01 X10^3/uL; Eosinophils% 0.1 % (0-5); Hemoglobin 13.7 g/dL (13.0-16.5); Lymphocyte # 0.57 X10^3/ul (0.83-4.51); Lymphocyte % 3.7 % (19-41); Mean Corp Hgb Conc 30.4 g/dL (32-36); Mean Corpuscular Hgb 27.9 pg (27.0-32.0); Mean Corpuscular Volume 91.6 fL (80-94); Mean Platelet Vol. 8.7 fl (6.2-12.0); Monocyte% 3.2 % (0-10); NRBC Flagged by Analyzer 0 % (0-5); Neutrophil # 14.39 X10^3/uL (2.7-7.7); Neutrophil % 92.4 % (47-70); POSITIVE DIFFERENTIAL YES; Platelet Count 309 K/mm3 (150-450); RBC Distribution Width CV 15.3 % (11.6-14.6); RBC Distribution Width SD 51.6 fl (35.1-43.9); Red Blood Count 4.91 M/mm3 (4.6-6.2); White Blood Count 15.6 K/mm3 (4.4-11.0)
[2023-03-25 13:36] LABS: Partial Thromboplast Time 27.1 Seconds (24.1-36.2)
[2023-03-25 13:42] LABS: ALB/GLOB Ratio 0.8 RATIO (0.9-2.4); AST(SGOT) 20 U/L (15-37); Alanine Aminotransfer ALT/SGPT 20 U/L (16-61); Albumin, Serum 3.4 g/dL (3.2-5.0); Alkaline Phosphatase 84 U/L (45-117); Anion Gap 6 (5-15); BUN 18 mg/dL (7-18); BUN/Creat Ratio 17.5 RATIO (10-20); Calcium,Total 9.5 mg/dL (8.5-10.1); Chloride 106 mmol/L (98-107); Creatinine, Serum 1.03 mg/dL (0.70-1.30); EST Glomerular Filtration Rate 74 mL/min (>60); Est Glom Filt Rate - Afr Amer 89 mL/min (>60); Estimated Creatinine Clearance 60.92 ml/min; Glucose 125 mg/dL (74-106); Potassium 4.5 mmol/L (3.5-5.1); Protein, Total 7.4 g/dL (6.4-8.2); Sodium Level 139 mmol/L (136-145)
[2023-03-25 13:45] LABS: Differential Indicated SCAN CRITERIA MET
[2023-03-25 14:03] LABS: Prothrombin Time (Protime)PT. 13.1 SECONDS (11.7-14.9)
[2023-03-25 14:10] LABS: Lactic Acid 2.3 mmol/L (0.4-1.9)
--- NOTE | 2023-03-25 15:11 | HP.PCM.HOS_ITS ---
HPI - General General Date of Admission: 03/25/23 Date of Service: 03/25/23 Chief Complaint: Hemoptysis HPI Narrative OSWALDO MENDIOLA, is a 82 M who presented to [facility] ED on 03/25/2023 with sarika hemoptysis. Patient seen at bedside in the ED, present. Patient was sitting up comfortably in bed, conversing normally, no acute distress during my interview. He did have some dried blood noted around his lips. Was satting well on 3 L nasal cannula, which is his baseline oxygen requirement. Patient states that he intermittently has had blood-tinged sputum over the past few weeks, but this morning he coughed up several spoonfuls of sarika blood. He has never had hemoptysis like that before. He otherwise denies any chest pain or shortness of breath. Denies any fevers or chills. Denies any other pain or discomfort at this time. No other acute concerns. Patient notably was found to have possible recurrence of his lung cancer on PET CT imaging from 03/03/2023. Imaging showed apparent interim progression of defined viable neoplastic disease. His previous lung cancer history is noted below. Patient was found on CTA chest in the ED to have a PE in the second branches of left lower lobe pulmonary artery. CTA chest also demonstrated spiculated lesions in the left lung as well as a pleural-based cavitary lesion in the left lower lobe increased in size from previous concerning for malignancy. Dr. Londono discussed with radiology if there was concern for the hemoptysis coming from the lung mass, and per Dr. Londono the radiologist told him that the bleeding appeared to be coming from the area where the PE was, which was much more peripheral to the suspected lung cancer. With regard to his lung cancer history, patient was diagnosed with lung cancer back in January 2020. Currently follows with Dr. Ball, further information obtained from his most recent office note from 02/16/2023. Patient was found to have a left lower lobe nodule in January 2020. He had CT-guided biopsy done at that time at [facility] and developed pneumothorax postbiopsy requiring transfer to [facility] for further management. PET scan at [facility] was concerning for malignancy and patient had a left thoracoscopy with conversion to mini thoracotomy with wedge resection of the left lower lobe lung mass in 01/2020. 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 Patient completed radiation therapy to the left lower lung in 04/2020, has had no further therapy since that time. FOR[facility] Medical History (Updated 03/25/23 @ 17:05 by Lillian Odonnell) Abrasion Anxiety Benign essential HTN Bronchiectasis CAD (coronary artery disease) Cancer Cardiology follow-up encounter Chest pain Chronic cough Chronic hypoxemic respiratory failure COPD (chronic obstructive pulmonary disease) Coronary artery disease Depression Former smoker High cholesterol History of steroid therapy History of stress test History of weight loss HLD (hyperlipidemia) Injury of back Myocardial infarct No pertinent family history Nocturnal hypoxemia On home oxygen therapy Prostate CA Prostate disease Shortness of breath on exertion Stage 3 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 Syncope Tobacco dependence in remission Wears dentures Wears glasses Home Medications aspirin 81 mg chewable tablet 81 mg PO QPM heart health 12/29/14 [History Last Taken 03/24/23] nitroglycerin 0.4 mg sublingual tablet 0.4 mg sublingual Q5M PRN Chest Pain 12/29/14 [History Last Taken 1 Week Ago ~07/02/20] clopidogrel 75 mg tablet 75 mg PO QPM blood thinner 04/19/16 [History Last Taken 03/24/23] guaifenesin 1,200 mg tablet, extended release 12 hr (Mucinex) 1,200 mg PO BID congestion 07/09/20 [History Last Taken 03/24/23] lorazepam 1 mg tablet (Ativan) 0.5 - 1 mg PO TID PRN Anxiety 07/09/20 [History Last Taken 03/25/23] polyethylene glycol 3350 17 gram oral powder packet (Miralax) 17 g PO DAILY PRN Constipation 07/09/20 [History Last Taken 03/24/23] acetaminophen 325 mg tablet (Tylenol) 650 mg PO Q4H PRN Pain 08/13/20 [History Last Taken 03/24/23] prednisone 10 mg tablet 10 mg PO QDAY #90 tabs 01/15/22 [Rx Last Taken 03/25/23] oxycodone 5 mg tablet 2.5 - 5 mg PO Q6H PRN PAIN AND BREATHING 02/05/22 [History Last Taken 03/25/23] levalbuterol tartrate 45 mcg/actuation aerosol inhaler 2 inh inhalation Q4H PRN shortness of breath or wheezing #15 grams 07/25/22 [Rx Last Taken 03/25/23] fluticasone propionate 230 mcg-salmeterol 21 mcg/actuation HFA inhaler (Advair HFA) 2 puff inhalation BID 08/07/22 [History Last Taken 03/25/23] atorvastatin 40 mg tablet 40 mg PO QHS cholesterol 03/25/23 [History Last Taken 03/24/23] duloxetine 30 mg capsule,delayed release 30 mg PO QPM DEPRESSION 03/25/23 [History Last Taken 03/24/23] levofloxacin 500 mg tablet 500 mg PO DAILY ANTIBIOTIC 03/25/23 [History Last Taken 03/24/23] lidocaine 4 % topical patch 1 patch topical DAILY 03/25/23 [History Last Taken 03/25/23] tamsulosin 0.4 mg capsule 0.4 mg PO QPM BLADDER/ PROSTATE 03/25/23 [History Last Taken 03/25/23] tiotropium bromide 2.5 mcg/actuation mist for inhalation (Spiriva Respimat) 2 puff inhalation DAILY copd 03/25/23 [History Last Taken 03/24/23] Allergy/AdvReac Type Severity Reaction Status Date / Time isosorbide [From Imdur] Allergy Other-patient Verified 03/25/23 12:50 blacks out Family History Other No pertinent family history Surgical History (Updated 03/25/23 @ 17:05 by Lillian Odonnell) Hx of CABG Hx of CABG Hx of heart artery stent Hx of pneumonectomy Hx of transurethral resection of prostate No pertinent past surgical history Social History Smoking Status: Former smoker Tobacco: How many years used: 45 Electronic Cigarette Use: not used how long ago did patient quit smokin, second hand exposure: Yes alcohol intake: never substance use type: does not use ROS Constitutional Constitutional: Denies chills, fatigue, fever(s) or weakness Eyes Eyes: Denies change in vision ENT HEENT: Denies dysphagia, epistaxis, nasal congestion, nasal discharge, sinus pressure or sore throat Cardiovascular Cardiovascular: Denies chest pain, dyspnea on exertion, edema, lightheadedness, orthopnea, palpitations or rapid heart rate Respiratory/Chest Respiratory/Chest: Reports hemoptysis; Denies cough, productive cough, shortness of breath at rest, shortness of breath with exertion or wheezing Gastrointestinal Gastrointestinal: Denies abdominal pain, constipation, diarrhea, nausea or vomiting Genitourinary Genitourinary: Denies dysuria Musculoskeletal Musculoskeletal: Denies arthralgias or back pain Neurologic Neurologic: Denies dizziness, focal weakness or headache(s) Vital Signs Vital Signs Vital Signs: 03/25/23 12:50 03/25/23 12:54 03/25/23 12:54 Temperature 97.6 F L 97.8 F Temperature Source Temporal Temporal Pulse Rate 131 H 130 H Respiratory Rate 16 24 H Respiratory Effort Short of Breath Labored Pursed Lip Respiratory Depth Shallow Respiratory Pattern Tachypnea Blood Pressure 139/81 H 139/81 H Blood Pressure Mean 100 100 Pulse Ox 97 97 Oxygen Delivery Method Nasal Cannula Nasal Cannula Nasal Cannula Oxygen Flow Rate (L/min) 3 3 3 03/25/23 15:11 Temperature Temperature Source Pulse Rate 81 Respiratory Rate 16 Respiratory Effort Respiratory Depth Respiratory Pattern Blood Pressure 117/73 Blood Pressure Mean 87 Pulse Ox 98 Oxygen Delivery Method Room Air Oxygen Flow Rate (L/min) Weight Weight: 79.4 kg Body Mass Index (BMI) 24.4 Physical Exam Const alert, oriented x3, no apparent distress and average body habitus Constitutional Narrative: Pleasant elderly male, healthy appearing, sitting up comfortably in bed, conversing normally, no acute distress. General Appearance: cooperative and comfortable HEENT normocephalic, head/scalp atraumatic, hearing grossly normal bilaterally, nasal mucous membranes and turbinates normal and moist oral mucous membranes HEENT Narrative: Small amount of dried blood noted around patient's lips. Eyes PERRL, EOMs intact bilaterally and conjunctivae normal Neck full ROM, no lymphadenopathy and supple Lymph Lymphatic: no lymphadenopathy noted Chest inspection of chest normal Resp normal respiratory effort and no use of accessory muscles Resp Narrative: Satting well on 3 L nasal cannula, no increased work of breathing noted. Mildly decreased breath sounds noted in left lung base. No wheezing or crackles noted. Cardio regular rate, regular rhythm, no murmurs and peripheral pulses 2+ throughout GI normal to inspection, nondistended, normoactive bowel sounds, soft to palpation, non-tender and non-distended Back/Spine normal ROM Extremity normal to inspection, full ROM and no pedal edema Skin no rashes or lesions noted Neuro moves all extremities and no focal motor deficits Speech: speech normal Psych mental status grossly normal Results Lab / Micro Data 03/25/23 13:00 03/25/23 13:00 Labs: Laboratory Results - last 24 hr 03/25/23 13:00: WBC 15.6 H, RBC 4.91, Hgb 13.7, Hct 45.0, MCV 91.6, MCH 27.9, MCHC 30.4 L, RDW Std Deviation 51.6 H, RDW Coeff of Estelita 15.3 H, Plt Count 309, MPV 8.7, Immature Gran % (Auto) 0.400, Neut % (Auto) 92.4 H, Lymph % (Auto) 3.7 L, Rankin % (Auto) 3.2, Eos % (Auto) 0.1, Baso % (Auto) 0.2, Absolute Neuts (auto) 14.4 H, Absolute Lymphs (auto) 0.57 L, Nucleated RBC % 0, PT 13.1, INR 1.0, APTT 27.1, Sodium 139, Potassium 4.5, Chloride 106, Carbon Dioxide 27.0, Anion Gap 6, BUN 18, Creatinine 1.03, Estim Creat Clear Calc 60.92, Est GFR (MDRD) Af Amer 89, Est GFR (MDRD) Non-Af 74, BUN/Creatinine Ratio 17.5, Glucose 125 H, Calcium 9.5, Total Bilirubin 0.50, AST 20, ALT 20, Alkaline Phosphatase 84, Total Protein 7.4, Albumin 3.4, Globulin 4.0, Albumin/Globulin Ratio 0.8 L 03/25/23 13:20: Lactic Acid 2.3 H* Rhythm Strip Rhythm Strip: Sinus Tach Rate: 144 Ectopy: PVC(s) (Occasional to rare) Imagaing Radiology Impression Chest CTA 03/25/23 13:05 IMPRESSION: 1. Pulmonary embolism in second branches of left lower lobe pulmonary artery. 2. Pleural-based cavitary lesion left lower lobe increased in size since previous exam concerning for malignancy corresponding to the PET/CT abnormality. 3. Spiculated lesions in the left lung again concerning for malignancy. 4. Scattered ill-defined densities some of them new since the previous exam. Electronically Signed: Lui Nolen MD at 14:30 EST , ADDENDUM: 03/25/23 1439 IMPRESSION: 1. Pulmonary embolism in second branches of left lower lobe pulmonary artery. 2. Pleural-based cavitary lesion left lower lobe increased in size since previous exam concerning for malignancy corresponding to the PET/CT abnormality. 3. Spiculated lesions in the left lung again concerning for malignancy. 4. Scattered ill-defined densities some of them new since the previous exam. N.B. : The above Results were Read Back by Lui Nolen MD to Randy Londono MD, and understanding confirmed on 03/25/2023 14:32:41 (ET). Electronically Signed: Lui Nolen MD at 14:30 EST , Assessment & Plan Assessment/Plan (1) Pulmonary embolus: (2) Pulmonary neoplasm: (3) Major hemoptysis: PLAN: Plan Patient is an 82-year-old male who presented to [facility] ED on 03/25/2023 with hemoptysis. 1. Acute left lower lobe PE, low risk; hemoptysis CTA chest on admit showed left lower lobe PE. Tachycardic to 130s on admit but BP stable, good oxygen saturations on home oxygen requirements, no tachypnea noted. Also presented with sarika hemoptysis, which resolved in the ED. Hemoglobin 13.7 on admit, at baseline. ? Admit under observation status to PCU. Continue heparin drip. Monitor closely for recurrence of hemoptysis. Follow-up a.m. CBC. Echo ordered. Venous Doppler study ordered. If patient remains stable tomorrow, likely okay to transition to DOAC in preparation for discharge. 2. History of lung cancer with suspected recurrence ? See HPI for further details regarding the patient's cancer history. Unfortunately appears to have recurrence of lung cancer noted on recent PET CT scan from 03/03/2023. Has outpatient follow-up scheduled with Dr. Ball soon; no oncology needs while inpatient, recommend close outpatient follow-up. 3. Leukocytosis ? WBC count 15 on admit. Suspect due to acute stress state with mild hem oconcentration. No infectious symptoms noted, patient afebrile and hemodynamically stable, low concern for infection. No need for antibiotic treatment. Follow-up a.m. CBC. 4. Elevated lactic acid, resolved ? Lactate 2.3 on admit, resolved with IV fluids. 5. History of CAD, hyperlipidemia ? Continue home Plavix, holding home aspirin with patient on anticoagulation as noted above. Continue home statin. Chronic medical conditions: ? COPD, chronic hypoxic respiratory failure on home 3 L: Currently stable on home 3 L nasal cannula with good oxygen saturations, no evidence of COPD exacerbation. Continue home inhalers, daily low-dose prednisone and daily Levaquin. ? Anxiety/depression: Continue home duloxetine, Ativan 3 times daily as needed. ? Chronic pain: Continue home low-dose oxycodone as needed. ? BPH with LUTS: Continue home Flomax. DVT prophylaxis: Heparin drip CODE STATUS: DNR CCA, DNI Expected disposition: Home, 1 to 2 days Total clinical time spent by myself addressing the patient's medical issues, reviewing all the data, and collaborating with patient's care team: 55 minutes. Charges/Coding Visit Charges Inpatient E&M: 99634 Init Hosp L2
[2023-03-25] MEDS: Heparin Injection (Vial) 5,000 UNIT/ML VIAL 5000 UNIT IV (15:39)
[2023-03-25] MEDS: HEPARIN/D5w 25,000 UNITS 25,000 UNITS/250 ML IV.SOLN. 0.100000000000000006 UNITS CONT INF (15:39)
[2023-03-25] MEDS: LORazepam 1 MG Tablet PO (15:39)
--- NOTE | 2023-03-25 16:07 | NURSING ---
PCU MOSTELLER PE, LUNG CANCER, HEMOPTYSIS
--- NOTE | 2023-03-25 16:47 | ECHOCS_ITS ---
Reason For Study: EMBOLI, PE Procedure This was a 2D Doppler, Color Flow transthoracic echocardiogram. The study was technically difficult. Poor accoustic windows, body habitus. Contrast injection was performed. Left Ventricle Normal LV size. The estimated ejection fraction is 60 %. No evidence for diastolic dysfunction. No regional wall motion abnormalities noted. Right Ventricle Normal RV size. Normal systolic function. Atria Normal left atrium. Normal right atrium. No doppler evidence for ASD. Bubble contrast study negative for right to left interatrial shunt. Mitral Valve There is no mitral valve stenosis. No mitral valve insufficiency. Tricuspid Valve There is no tricuspid stenosis. Unable to estimate RV systolic pressure due to inadequate jet, pulmonary artery pressure probably normal. Aortic Valve Trisinus/trileaflet aortic valve. Aortic sclerosis, no stenosis. There is no aortic stenosis. No aortic valve insufficiency. Pulmonic Valve There is no pulmonic valvular stenosis. No pulmonic valve insufficiency. Great Vessels Normal aortic root. Pericardium/Pleural No pericardial effusion. Medication Diluted definity 3.0ml given slow IV push to enhance endocardial definition. Performed a rapid injection of agitated mix of 9 cc saline and 1cc air to assess for atrial septal defect. MMode/2D Measurements & Calculations RVDd: 1.7 cm Ao root diam: 3.7 cm LAV(MOD-bp): 41.2 ml LA dimension: 3.8 cm LAV(MOD-bp) Indexed: 20.7 ml/m2 LAV(MOD-sp2): 40.3 ml LAV(MOD-sp4): 40.9 ml SV(MOD-sp4): 50.5 ml SV(sp4-el): 55.0 ml LVAd ap4: 30.0 cm2 LVLd ap4: 7.8 cm EDV(MOD-sp4): 95.2 ml EDV(sp4-el): 97.0 ml LVAs ap4: 19.1 cm2 LVLs ap4: 7.4 cm ESV(MOD-sp4): 44.7 ml ESV(sp4-el): 42.0 ml EF(MOD-sp4): 53.0 % EF(sp4-el): 56.7 % LA A4 area: 15.2 cm2 RA A4 area: 11.8 cm2 Time Measurements MV dec time: 0.20 sec Doppler Measurements & Calculations MV E max tera: 72.0 cm/sec Lat Peak E' Tera: 7.8 cm/sec Med Peak E' Tera: 10.1 cm/sec MV A max tera: 116.1 cm/sec E/E' lat: 9.2 E/E' med: 7.1 MV E/A: 0.62 MV V2 max: 107.1 cm/sec Ao V2 max: 165.3 cm/sec LV V1 max: 95.7 cm/sec MV max P.6 mmHg Ao max P.0 mmHg LV V1 max P.7 mmHg MV V2 mean: 65.7 cm/sec Ao V2 mean: 108.6 cm/sec LV V1 mean P.0 mmHg MV mean P.0 mmHg Ao mean P.5 mmHg LV V1 mean: 67.4 cm/sec MV V2 VTI: 15.7 cm Ao V2 VTI: 24.5 cm LV V1 VTI: 14.4 cm AV (velocity ratio): 0.59 PA V2 max: 89.1 cm/sec PA V2 mean: 66.3 cm/sec ECHO/Echo Complete W/ Contrast Interpretation Summary The estimated ejection fraction is 60 %. No evidence for diastolic dysfunction. Aortic sclerosis, no stenosis. Ordering Physician: Jacob Suazo Referring Physician: Dillan Cummins Performed By: Renetta Olivas RDCS, RVT
[2023-03-25 17:23] LABS: Reflex Lactate? Y
[2023-03-25] MEDS: Budesonide Respules 0.5 MG/2 ML AMPUL.NEB. INHALATION (19:00)
[2023-03-25] MEDS: Ipratropium/Albuterol Sulfate 3 ML AMPUL.NEB INHALATION (19:00)
[2023-03-25] MEDS: guaiFENesin 1,200 MG Tablet 1200 MG PO (21:00)
[2023-03-25] MEDS: Atorvastatin Calcium 40 MG Tablet PO (21:00)
[2023-03-25] MEDS: DULoxetine Hcl 30 MG Capsule PO (21:00)
[2023-03-25] MEDS: levoFLOXacin 500 MG Tablet PO (21:00)
[2023-03-25] MEDS: Tamsulosin HCl 0.4 MG Capsule 0.400000000000000022 MG PO (21:00)
--- NOTE | 2023-03-25 22:13 | VDLE_ITS ---
Reason For Study: PE RIGHT LEFT GSV is normal. GSV is normal. CFV is compressible, spontaneous, phasic, CFV is compressible, spontaneous, phasic, competent and demonstrates normal competent, and demonstrates normal augmentation. augmentation. FV is compressible, spontaneous, phasic, FV is compressible, spontaneous, phasic, competent and demonstrates normal competent and demonstrates normal augmentation. augmentation. POP V is compressible, spontaneous, phasic, POP V is compressible, spontaneous, phasic, competent and demonstrates normal competent and demonstrates normal augmentation. augmentation. T/P Trunk is compressible. T/P Trunk is compressible. RT PerV is compressible. LT PerV is compressible. Acute deep vein thrombosis is noted in the Acute deep vein thrombosis is noted in the PTV. It is dilated and NONCOMPRESSIBLE. PTV. It is dilated and NONCOMPRESSIBLE. Procedure This is a venous duplex using B-mode, color flow and spectral Doppler. Exam performed portable in patient room. The exam was diagnostic. A preliminary report was called and/or faxed to Mirna SCHAFER. VL/Venous Duplex US - Kemar Extrem Interpretation Summary Acute deep vein thrombosis is noted in the right posterior tibial vein. Acute deep vein thrombosis is noted in the left posterior tibial vein. Ordering Physician: Jacob Suazo Performed By: Andrés Hernandez RVT
[2023-03-25 23:23] LABS: Partial Thromboplast Time 78.2 Seconds (24.1-36.2)
[2023-03-26] VITALS (9 sets, daily range): BP systolic 116–138; BP diastolic 73–84; PULSE 85–105; RESP 16–20; TEMP 36.2–37.1; O2SAT 98–100
[2023-03-26 03:47] LABS: Hematocrit 36.6 % (40-54); Hemoglobin 11.2 g/dL (13.0-16.5); Mean Corp Hgb Conc 30.6 g/dL (32-36); Mean Corpuscular Hgb 27.9 pg (27.0-32.0); Mean Corpuscular Volume 91.3 fL (80-94); Mean Platelet Vol. 8.6 fl (6.2-12.0); Platelet Count 208 K/mm3 (150-450); RBC Distribution Width CV 15.3 % (11.6-14.6); RBC Distribution Width SD 51.6 fl (35.1-43.9); Red Blood Count 4.01 M/mm3 (4.6-6.2); White Blood Count 10.6 K/mm3 (4.4-11.0)
[2023-03-26 04:02] LABS: Anion Gap 3 (5-15); BUN 19 mg/dL (7-18); BUN/Creat Ratio 21.3 RATIO (10-20); Calcium,Total 8.5 mg/dL (8.5-10.1); Chloride 106 mmol/L (98-107); Creatinine, Serum 0.89 mg/dL (0.70-1.30); EST Glomerular Filtration Rate 87 mL/min (>60); Est Glom Filt Rate - Afr Amer 105 mL/min (>60); Estimated Creatinine Clearance 70.51 ml/min; Glucose 132 mg/dL (74-106); Potassium 3.7 mmol/L (3.5-5.1); Sodium Level 139 mmol/L (136-145)
--- NOTE | 2023-03-26 04:10 | PCM.HOSP.N ---
Hospitalist Note Patient with ongoing severe bouts of coughing, asking for regimen. Will d/c mucinex and add guaf/codeine regimen to see if improved cough control.
[2023-03-26] MEDS: guaiFENesin/Codeine 5 ML UDC PO ×2 (04:25→21:43)
[2023-03-26] MEDS: Ipratropium/Albuterol Sulfate 3 ML AMPUL.NEB INHALATION ×3 (06:45→19:44)
[2023-03-26] MEDS: Budesonide Respules 0.5 MG/2 ML AMPUL.NEB. INHALATION ×2 (06:46→19:44)
--- NOTE | 2023-03-26 07:13 | PCM.PN.HOSP ---
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 (03/25/23) Other pulmonary embolism without acute cor pulmonale (03/25/23) Hemoptysis (03/25/23) Objective Data Objective Data Vital Signs: Vital Signs Temp Pulse Resp BP Pulse Ox O2 Del Method O2 Flow Rate 98.8 F 96 20 H 138/74 H 100 Nasal Cannula 3 03/26/23 04:20 03/26/23 04:20 03/26/23 04:20 03/26/23 04:20 03/26/23 04:20 03/26/23 04:29 03/26/23 04:29 Oxygen Flow Rate (L/min) 3 Oxygen Delivery Method Nasal Cannula Weight: 177 lb 11.081 oz Body Mass Index (BMI) 24.7 Intake & Output: Intake and Output for Last 24 Hours 03/24/23 03/25/23 03/26/23 23:59 23:59 23:59 Output Total 200 / 200 Balance -200 / -200 Lab / Micro Data 03/26/23 03:41 03/26/23 03:41 Labs: Laboratory Results - last 24 hr 03/25/23 13:00: WBC 15.6 H, RBC 4.91, Hgb 13.7, Hct 45.0, MCV 91.6, MCH 27.9, MCHC 30.4 L, RDW Std Deviation 51.6 H, RDW Coeff of Estelita 15.3 H, Plt Count 309, MPV 8.7, Immature Gran % (Auto) 0.400, Neut % (Auto) 92.4 H, Lymph % (Auto) 3.7 L, Bracken % (Auto) 3.2, Eos % (Auto) 0.1, Baso % (Auto) 0.2, Absolute Neuts (auto) 14.4 H, Absolute Lymphs (auto) 0.57 L, Nucleated RBC % 0, PT 13.1, INR 1.0, APTT 27.1, Sodium 139, Potassium 4.5, Chloride 106, Carbon Dioxide 27.0, Anion Gap 6, BUN 18, Creatinine 1.03, Estim Creat Clear Calc 60.92, Est GFR (MDRD) Af Amer 89, Est GFR (MDRD) Non-Af 74, BUN/Creatinine Ratio 17.5, Glucose 125 H, Calcium 9.5, Total Bilirubin 0.50, AST 20, ALT 20, Alkaline Phosphatase 84, Total Protein 7.4, Albumin 3.4, Globulin 4.0, Albumin/Globulin Ratio 0.8 L 03/25/23 13:20: Lactic Acid 2.3 H* 03/25/23 18:06: Lactic Acid 1.0 03/25/23 21:46: APTT 78.2 H 03/26/23 03:41: WBC 10.6, RBC 4.01 L, Hgb 11.2 L, Hct 36.6 L, MCV 91.3, MCH 27.9, MCHC 30.6 L, RDW Std Deviation 51.6 H, RDW Coeff of Estelita 15.3 H, Plt Count 208, MPV 8.6, APTT 68.0 H, Sodium 139, Potassium 3.7, Chloride 106, Carbon Dioxide 30.0, Anion Gap 3 L, BUN 19 H, Creatinine 0.89, Estim Creat Clear Calc 70.51, Est GFR (MDRD) Af Amer 105, Est GFR (MDRD) Non-Af 87, BUN/Creatinine Ratio 21.3 H, Glucose 132 H, Calcium 8.5 Radiography Diagnostic Testing: Radiology Impression Chest CTA 03/25/23 13:05 IMPRESSION: 1. Pulmonary embolism in second branches of left lower lobe pulmonary artery. 2. Pleural-based cavitary lesion left lower lobe increased in size since previous exam concerning for malignancy corresponding to the PET/CT abnormality. 3. Spiculated lesions in the left lung again concerning for malignancy. 4. Scattered ill-defined densities some of them new since the previous exam. Electronically Signed: Lui Nolen MD at 14:30 EST , ADDENDUM: 03/25/23 1252 IMPRESSION: 1. Pulmonary embolism in second branches of left lower lobe pulmonary artery. 2. Pleural-based cavitary lesion left lower lobe increased in size since previous exam concerning for malignancy corresponding to the PET/CT abnormality. 3. Spiculated lesions in the left lung again concerning for malignancy. 4. Scattered ill-defined densities some of them new since the previous exam. N.B. : The above Results were Read Back by Lui Nolen MD to Randy Londono MD, and understanding confirmed on 03/25/2023 14:32:41 (ET). Electronically Signed: Lui Nolen MD at 14:30 EST , Rhythm Strip Rhythm Strip: Sinus Tach Rate: 144 Ectopy: PVC(s) (Occasional to rare) Physical Exam Narrative seen and examined. Patient normally on 3 L of oxygen which increased to 4 L on exertion at home. Does not use BiPAP or CPAP. Patient has mild occasional baseline cough and shortness of breath on exertion/dyspnea but it got worse moderate to severe cough, hemoptysis and dyspnea at rest yesterday. Physical exam: General: Alert, Oriented x3, Cooperative HEENT: Atraumatic, PERRLA, EOMI, Normocephalic Oral: Oral mucosa dry. No Gingival or Mucosal Lesions/ Ulcerations Neck: Supple, No JVD, Negative Carotid Bruits Chest wall/Lungs: Surgical scar over left anterolateral area. Air entry diminished in bilateral lung bases. bilateral coarse Crepitations/wheezing. Hemoptysis several teaspoon. Dyspnea at rest. Cardiovascular: Sinus tachycardia with frequent PVCs, Normal S1, Normal S2, No murmurs Abdomen: Bowel Sounds Present, Soft, Non Tender, Non-Distended : No renal angle tenderness. No suprapubic tenderness. Extremities: No edema, Capillary Refill Less than 3 Seconds Skin: No rashes, No breakdown Musculoskeletal: No Tenderness to Palpation of Joints or Extremities Neurological: Cranial nerves II-XII grossly intact, DTR 2+/4. No acute focal neurological deficit. Psych/Mental Status: Normal Affect, Appropriate. Assessment & Plan Assessment/Plan (1) Pulmonary embolus: (2) Pulmonary neoplasm: (3) Major hemoptysis: PLAN: Plan Patient is an 82-year-old male who presented to [facility] ED on 03/25/2023 with hemoptysis, shortness of breath and dyspnea. 1. Acute left lower lobe PE, off left lower lobe pulmonary artery: CT chest individually reviewed. Patient tachycardic, dyspnea at rest and tachypneic in the morning. Patient has hemoptysis but will continue anticoagulant. IV heparin changed to enoxaparin. Troponin and BNP ordered. 2D echo is ordered. As patient is still short of breath therefore patient observation status needs to change to inpatient status. 2. History of lung cancer with suspected recurrence on the recent PET/CT imaging from 03-03-23. Imaging shows progression of defined viable neoplastic disease. Lung cancer was diagnosed in January 2020. Currently follows with Dr. Ball, further information obtained from his most recent office note from 02/16/2023. Patient was found to have a left lower lobe nodule in January 2020. He had CT-guided biopsy done at that time at [facility] and developed pneumothorax postbiopsy requiring transfer to [facility] for further management. PET scan at [facility] was concerning for malignancy and patient had a left thoracoscopy with conversion to mini thoracotomy with wedge resection of the left lower lobe lung mass in 01/2020. 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 Patient completed radiation therapy to the left lower lung in 04/2020, has had no further therapy since that time. Has outpatient follow-up scheduled with Dr. Ball soon; no oncology needs while inpatient, recommend close outpatient follow-up. 3. Leukocytosis mainly inflammatory due to PE ? WBC count 15 on admit, improved to normal range 10.6 thousand.. No infectious symptoms noted, patient afebrile and hemodynamically stable, low concern for infection. No need for antibiotic treatment. 4. Elevated lactic acid, resolved ? Lactate 2.3 on admit, resolved with IV fluids. 5. History of CAD, hyperlipidemia ? Continue home Plavix, holding home aspirin with patient on anticoagulation as noted above. Continue home statin. Chronic medical conditions: ? COPD, chronic hypoxic respiratory failure on home 3 L: Currently stable on home 3 L nasal cannula with good oxygen saturations, no evidence of COPD exacerbation. Continue home inhalers, daily low-dose prednisone and daily Levaquin. ? Anxiety/depression: Continue home duloxetine, Ativan 3 times daily as needed. ? Chronic pain: Continue home low-dose oxycodone as needed. ? BPH with LUTS: Continue home Flomax. DVT prophylaxis: Heparin drip CODE STATUS: DNR CCA, DNI Clinical Impression(s) from Imaging Studies Chest CTA 03/25/23 13:05 IMPRESSION: 1. Pulmonary embolism in second branches of left lower lobe pulmonary artery. 2. Pleural-based cavitary lesion left lower lobe increased in size since previous exam concerning for malignancy corresponding to the PET/CT abnormality. 3. Spiculated lesions in the left lung again concerning for malignancy. 4. Scattered ill-defined densities some of them new since the previous exam. Charges/Coding Visit Charges Inpatient E&M: 38896 Subs Hosp L2
[2023-03-26] MEDS: Enoxaparin 80 MG/0.8 ML Syringe SC ×2 (09:38→21:44)
[2023-03-26] MEDS: predniSONE 10 MG Tablet PO (09:38)
[2023-03-26 09:45] LABS: Partial Thromboplast Time 34.2 Seconds (24.1-36.2)
[2023-03-26] MEDS: Acetaminophen 325 MG Tablet 650 MG PO (10:48)
[2023-03-26 13:10] LABS: BNP,B-Type NATRIURETIC PEPTIDE 45.3 pg/mL (0-100)
[2023-03-26 14:02] LABS: Troponin-I HS 22 pg/mL (3.0-78.0)
--- NOTE | 2023-03-26 15:45 | CASEMGMT ---
Addendum entered by Delma Contreras 03/26/23 17:22: Correction: Dr Zaragoza made aware of pt stopping his plavix 6-7 days ago. (not Dr Birch) Addendum entered by Delma Contreras 03/26/23 17:20: Pt told this RN CM that he stopped taking his Plavix about 6-7 days ago and that he had not told anyone here that yet. He stated the reason he stopped it is d/t he was having family come in from [place] of [place] and he wanted to clear up some of the bruising on his arms. Dr Birch was made aware. Original Note: RN CM Assessment: RN CM to room to meet w/pt for initial transition planning/care coordination assessment. RN CM introduced self and role at [facility]. at bedside. Pt voices understanding and consents to assessment. Pt is A/O and answers all questions appropriately at this time. Pt sitting on edge of bed with O2 on in no distress. Care providers, pharmacy, and demographics verified/updated. PCP: Dr Cummins Specialists: Dr Cherry, cardiology; Dr Catalan, urology; Dr Poly Calvillo, pulmonology; Dr Freeman, vascular; Dr Ball, oncology Pt has a phone appt w/Dr Oliverio Auguste on --thoracic surgeon @ [facility] Palliative: Pt is active w/[facility]. E-mail sent to [facility] to notify them of pt's admission. Preferred Pharmacy: [facility] Insurance: Elle ROJAS Prescription Benefit: yes LW/HPOA: Pt has both LW and HCPOA, who is his , Serenity. Noted LW is on file @ [facility], but not HCPOA. (General POA is on file, not Healthcare). Pt and made aware. states she will check to see if she can locate the HCPOA this evening and will bring it in tomorrow if she finds it. LNOK: Serenity Corley, Living Arrangements: Pt lives in a one story house with one step to enter with . Pt reports he is I in ADL's and manages his own medications. does assist w/meds as needed. does most home mgnt tasks. Transportation: Pt drives self and denies concerns with transportation. also drives. DME: Pt has a cane, walker, shower chair, grab bars, comfort height commode, W/C, nebulizer, pulse ox, and O2 at home through [employer]. He has a concentrator and POC, which is in his hospital room for pt to go home on. Pt states he wears O2 @ 3 l/m mostly, but does increase it to 4 l/m w/exertion. Per Kady @ [employer], current orders are 3 l/m continuously. HHC/SNF: Pt denies previous HHC or SNF stays. Pt states no concerns with going home at time of discharge. Pt and state no further concerns/needs. CM to follow for any increase in O2 needs. Advised pt and to ask for CM if any further question/concerns/needs arise. They voice understanding. Plan: Home with support, follow for any increase in O2 needs. Connor WASSERMANN RN CM
[2023-03-26] MEDS: Atorvastatin Calcium 40 MG Tablet PO (21:44)
[2023-03-26] MEDS: DULoxetine Hcl 30 MG Capsule PO (21:44)
[2023-03-26] MEDS: Clopidogrel Bisulfate 75 MG Tablet PO (21:44)
[2023-03-26] MEDS: Tamsulosin HCl 0.4 MG Capsule 0.400000000000000022 MG PO (21:44)
[2023-03-27 04:00] VITALS: BP 129/71; PULSE 86; RESP 20; TEMP 36.8; O2SAT 100
[2023-03-27 06:50] VITALS: PULSE 88; RESP 20; O2SAT 97
[2023-03-27] MEDS: Budesonide Respules 0.5 MG/2 ML AMPUL.NEB. INHALATION (06:50)
[2023-03-27] MEDS: Ipratropium/Albuterol Sulfate 3 ML AMPUL.NEB INHALATION (06:50)
[2023-03-27 09:12] VITALS: BP 137/72; PULSE 92; RESP 14; TEMP 36.2; O2SAT 100
[2023-03-27] MEDS: Enoxaparin 80 MG/0.8 ML Syringe SC (09:14)
[2023-03-27] MEDS: predniSONE 10 MG Tablet PO (09:14)
[2023-03-27 09:29] VITALS: BP 137/72; PULSE 92; RESP 18; TEMP 36.2; O2SAT 100
--- NOTE | 2023-03-27 10:27 | DCINST_ITS ---
Discharge Instructions Diet Discharge Diet: 2000 mg Sodium Diet Activity Discharge Activity: Return to Normal Activity Weight Bearing Status: Weight bearing as tolerated Dressing / Incision Call your doctor if you observe: Fever of 101 or Higher, Coldness, Increased Pain, Numbness or Tingling, Change in Color, Inability to urinate, Inability to have a bowel movement, Shortness of breath, Dizziness, Fainting spells, Swelling in the ankles, Chest pain, Prolonged hiccupping, Increased palpitations (irregular heartbeat) and Calf discomfort Follow Up Care When: IN 2 WEEKS Test Results: Test results from this visit will be discussed in further detail at your follow- up appointment, if applicable. Discharge Plan Admission Admit Date/Time: 03/26/23 11:57 Primary Reason for Your Visit: Acute left lower lobe pulmonary embolism with history of lung cancer. Attending Provider: Martin Zaragoza Primary Care Provider: Dillan Cummins Consulting Providers: Jacob Suazo Instructions Additional Instructions / Restrictions: Patient needs to continue Eliquis most likely whole life as he has lung cancer. Discharge Orders/Prescriptions Prescriptions: New Eliquis DVT-PE Treat 30D Start 5 mg (74 tabs) tablets,dose pack 5 mg PO BID Qty: 74 0RF Rx Instructions: 10 mg (2 tabs) twice daily for 7 days and then twice daily to continue. pseudoephedrine-guaifenesin [Mucus D] 120-1,200 mg tablet extended release 12 hr 1 tab PO Q12H 7 Days Qty: 14 0RF Continued oxycodone 5 mg tablet 2.5 - 5 mg PO Q6H PRN (Reason: PAIN AND BREATHING) fluticasone propion-salmeterol [Advair HFA] 230-21 mcg/actuation HFA aerosol inhaler 2 puff inhalation BID nitroglycerin 0.4 MG tablet 0.4 mg SL Q5M PRN (Reason: Chest Pain) aspirin 81 MG tablet,chewable 81 mg PO QPM Patient Comments: heart, blood thinner polyethylene glycol 3350 [Miralax] 17 gram Powder In Packet 17 g PO DAILY PRN (Reason: Constipation) lorazepam [Ativan] 1 mg tablet 0.5 - 1 mg PO TID PRN (Reason: Anxiety) acetaminophen [Tylenol] 325 mg Tablet 650 mg PO Q4H PRN (Reason: Pain) atorvastatin 40 mg tablet 40 mg PO QHS duloxetine 30 mg capsule,delayed release(DR/EC) 30 mg PO QPM tamsulosin 0.4 mg capsule 0.4 mg PO QPM Spiriva Respimat 2.5 mcg/actuation mist 2 puff INHALATION DAILY Rx Instructions: USES AROUND NOON lidocaine 4 % adhesive patch,medicated 1 patch TOPICAL DAILY Rx Instructions: APPLY TO AFFECTED AREA FOR 12 HOURS, AND THEN TAKE OFF FOR 12 HOURS prednisone 10 mg tablet 10 mg PO QDAY Qty: 90 3RF Hold Instructions: Resume on 12/28/21. hold while on prednisone burst & taper levalbuterol tartrate 45 mcg/actuation HFA aerosol inhaler 2 inh inhalation Q4H PRN (Reason: shortness of breath or wheezing) Qty: 15 11RF Discontinued clopidogrel 75 MG tablet 75 mg PO QPM guaifenesin [Mucinex] 1,200 mg Tablet Extended Release 12hr 1,200 mg PO BID levofloxacin 500 mg tablet 500 mg PO DAILY Rx Instructions: END DATE: 03/25/23 Referrals / Follow Up: Dillan Cummins MD [Primary Care Provider] - 04/03/23 2:20 pm Disposition Discharge Orders: Discharge Patient (Routine); Ordered 03/27/23 Ordered By: Dr. Martin Zaragoza
--- NOTE | 2023-03-27 10:57 | PCM.DC.SUM ---
Providers Date of Admission: 03/26/23 Date of Discharge: 03/27/23 Primary Care Physician: Dr. Dillan Cummins MD Reason For Visit: ACUTE PE, KNOWN LUNG MALIGNANCY Diagnosis Discharge Diagnosis (1) Pulmonary embolus: Status: Acute Code(s): I26.99 - Other pulmonary embolism without acute cor pulmonale (2) Pulmonary neoplasm: Status: Acute Code(s): D49.1 - 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 (3) Major hemoptysis: Status: Acute Code(s): R04.2 - Hemoptysis Plan Patient is an 82-year-old male who presented to [facility] ED on 03/25/2023 with hemoptysis, shortness of breath and dyspnea. 1. Acute left lower lobe PE, off left lower lobe pulmonary artery, unprovoked: CT chest individually reviewed. Patient tachycardic, dyspnea at rest and tachypneic in the morning. Patient has hemoptysis but will continue anticoagulant. IV heparin changed to enoxaparin. Troponin and BNP ordered. 2D echo is ordered. As patient is still short of breath therefore patient observation status needs to change to inpatient status. 03/27: Troponin and BNP negative. 2D echo reviewed. Normal RV size and systolic function. EF 60%. Prescription given for Eliquis, DVT/PE dose, 10 mg for 1 week and then 5 mg twice daily to continue. In view of lung cancer history I feel patient needs to continue Eliquis throughout the life as this was an unprovoked PE. Patient already on aspirin and Plavix as he has history of CAD with cardiac stent in 2012 and PAD and lower extremity stent on April,. Patient already has hemoptysis which has controlled therefore will prefer only 2 blood thinners. Therefore hold or discontinue baby aspirin while the patient is taking Eliquis. Continue Eliquis at least for 1 year till May 2023. Prescription also sent for Plavix and Mucinex DM. Follow-up with [facility] picture enlarger Dr. Ji Calvillo. 2. History of lung cancer with suspected recurrence on the recent PET/CT imaging from 03-03-23. Imaging shows progression of defined viable neoplastic disease. Lung cancer was diagnosed in January 2020. Currently follows with Dr. Ball, further information obtained from his most recent office note from 02/16/2023. Patient was found to have a left lower lobe nodule in January 2020. He had CT-guided biopsy done at that time at [facility] and developed pneumothorax postbiopsy requiring transfer to [facility] for further management. PET scan at [facility] was concerning for malignancy and patient had a left thoracoscopy with conversion to mini thoracotomy with wedge resection of the left lower lobe lung mass in 01/2020. 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 Patient completed radiation therapy to the left lower lung in 04/2020, has had no further therapy since that time. Has outpatient follow-up scheduled with Dr. Lizzy otero; no oncology needs while inpatient, recommend close outpatient follow-up. 3. Leukocytosis mainly inflammatory due to PE ? WBC count 15 on admit, improved to normal range 10.6 thousand.. No infectious symptoms noted, patient afebrile and hemodynamically stable, low concern for infection. No need for antibiotic treatment. 4. Elevated lactic acid, resolved ? Lactate 2.3 on admit, resolved with IV fluids. 5. History of CAD status post stents,, PAD status post stent hyperlipidemia: As mentioned above ? Continue home Plavix, holding home aspirin with patient on anticoagulation as noted above. Continue home statin. Chronic medical conditions: ? COPD, chronic hypoxic respiratory failure on home 3 L: Currently stable on home 3 L nasal cannula with good oxygen saturations, no evidence of COPD exacerbation. Continue home inhalers, daily low-dose prednisone and daily Levaquin. ? Anxiety/depression: Continue home duloxetine, Ativan 3 times daily as needed. ? Chronic pain: Continue home low-dose oxycodone as needed. ? BPH with LUTS: Continue home Flomax. DVT prophylaxis: Heparin drip CODE STATUS: DNR CCA, DNI Discharge medication reconciliation done. Discharge follow-up instructions completed. Discharge process discussed with the patient and all questions were answered to patient's satisfaction. Follow with PCP in 1 to 2 weeks Total time spent, exact 35 minutes on discharge meds reconciliation, examination, coordination of care with nurses and ancillary staff, review of imaging and blood test and discussion with the patient on follow-up instructions. Laboratory Results 03/26/23 03:41: Troponin I High Sens 22, B-Natriuretic Peptide 45.3 Clinical Impression(s) from Imaging Studies Chest CTA 03/25/23 13:05 IMPRESSION: 1. Pulmonary embolism in second branches of left lower lobe pulmonary artery. 2. Pleural-based cavitary lesion left lower lobe increased in size since previous exam concerning for malignancy corresponding to the PET/CT abnormality. 3. Spiculated lesions in the left lung again concerning for malignancy. 4. Scattered ill-defined densities some of them new since the previous exam. Electronically Signed: Lui Nolen MD at 14:30 EST , ADDENDUM: 03/25/23 1439 IMPRESSION: 1. Pulmonary embolism in second branches of left lower lobe pulmonary artery. 2. Pleural-based cavitary lesion left lower lobe increased in size since previous exam concerning for malignancy corresponding to the PET/CT abnormality. 3. Spiculated lesions in the left lung again concerning for malignancy. 4. Scattered ill-defined densities some of them new since the previous exam. N.B. : The above Results were Read Back by Lui Nolen MD to Randy Londono MD, and understanding confirmed on 03/25/2023 14:32:41 (ET). Electronically Signed: Lui Nolen MD at 14:30 EST , Echocardiogram 03/25/23 16:47 Interpretation Summary The estimated ejection fraction is 60 %. No evidence for diastolic dysfunction. Aortic sclerosis, no stenosis. Venous Doppler Study 03/25/23 22:13 Interpretation Summary Acute deep vein thrombosis is noted in the right posterior tibial vein. Acute deep vein thrombosis is noted in the left posterior tibial vein. Ordering Physician: Jacob Suazo Performed By: Andrés Hernandez, RVT Clinical Impression(s) from Imaging Studies Chest CTA 03/25/23 13:05 IMPRESSION: 1. Pulmonary embolism in second branches of left lower lobe pulmonary artery. 2. Pleural-based cavitary lesion left lower lobe increased in size since previous exam concerning for malignancy corresponding to the PET/CT abnormality. 3. Spiculated lesions in the left lung again concerning for malignancy. 4. Scattered ill-defined densities some of them new since the previous exam. Medications at Discharge Home Medications aspirin 81 mg chewable tablet 81 mg PO QPM heart health 12/29/14 nitroglycerin 0.4 mg sublingual tablet 0.4 mg sublingual Q5M PRN Chest Pain 12/29/14 lorazepam 1 mg tablet (Ativan) 0.5 - 1 mg PO TID PRN Anxiety 07/09/20 polyethylene glycol 3350 17 gram oral powder packet (Miralax) 17 g PO DAILY PRN Constipation 07/09/20 acetaminophen 325 mg tablet (Tylenol) 650 mg PO Q4H PRN Pain 08/13/20 prednisone 10 mg tablet 10 mg PO QDAY #90 tabs 01/15/22 oxycodone 5 mg tablet 2.5 - 5 mg PO Q6H PRN PAIN AND BREATHING 02/05/22 levalbuterol tartrate 45 mcg/actuation aerosol inhaler 2 inh inhalation Q4H PRN shortness of breath or wheezing #15 grams 07/25/22 fluticasone propionate 230 mcg-salmeterol 21 mcg/actuation HFA inhaler (Advair HFA) 2 puff inhalation BID 08/07/22 atorvastatin 40 mg tablet 40 mg PO QHS cholesterol 03/25/23 duloxetine 30 mg capsule,delayed release 30 mg PO QPM DEPRESSION 03/25/23 lidocaine 4 % topical patch 1 patch topical DAILY 03/25/23 tamsulosin 0.4 mg capsule 0.4 mg PO QPM BLADDER/ PROSTATE 03/25/23 tiotropium bromide 2.5 mcg/actuation mist for inhalation (Spiriva Respimat) 2 puff inhalation DAILY copd 03/25/23 apixaban 5 mg (74 tabs) tablets in a dose pack (Eliquis DVT-PE Treat 30D Start) 5 mg PO BID #74 tabs 03/27/23 clopidogrel 75 mg tablet 75 mg PO QPM 30 days #30 tabs 03/27/23 pseudoephedrine-guaifenesin ER 120 mg-1,200 mg tab,extend release 12hr (Mucus D) 1 tab PO Q12H 1 week #14 tabs 03/27/23 Physical Exam Narrative Seen and examined. Patient normally on 3 L of oxygen which increased to 4 L on exertion at home. Does not use BiPAP or CPAP. Patient has mild occasional baseline cough and shortness of breath on exertion/dyspnea but it got worse moderate to severe cough, hemoptysis and dyspnea at rest yesterday. Physical exam: General: Alert, Oriented x3, Cooperative HEENT: Atraumatic, PERRLA, EOMI, Normocephalic. Hemoptysis has stopped. Oral: Oral mucosa moist. No Gingival or Mucosal Lesions/ Ulcerations Neck: Supple, No JVD, Negative Carotid Bruits Chest wall/Lungs: Surgical scar over left anterolateral area. Air entry diminished in bilateral lung bases. bilateral coarse crepitations better. Dyspnea and hemoptysis resolved. Cardiovascular: Sinus tachycardia with frequent PVCs, Normal S1, Normal S2, No murmurs Abdomen: Bowel Sounds Present, Soft, Non Tender, Non-Distended : No renal angle tenderness. No suprapubic tenderness. Extremities: No edema, Capillary Refill Less than 3 Seconds Skin: No rashes, No breakdown Musculoskeletal: No Tenderness to Palpation of Joints or Extremities Neurological: Cranial nerves II-XII grossly intact, DTR 2+/4. No acute focal neurological deficit. Psych/Mental Status: Normal Affect, Appropriate. Weight / BMI Weight Weight: 177 lb 11.081 oz Body Mass Index (BMI) 24.7 ABG / Lab / Microbiology Data 03/26/23 03:41 03/26/23 03:41 Laboratory: Laboratory Results - last 24 hr 03/26/23 03:41: Troponin I High Sens 22, B-Natriuretic Peptide 45.3 Radiography Diagnostic Testing: Radiology Impression Echocardiogram 03/25/23 16:47 Interpretation Summary The estimated ejection fraction is 60 %. No evidence for diastolic dysfunction. Aortic sclerosis, no stenosis. Ordering Physician: Jacob Suazo Referring Physician: Dillan Cummins Performed By: Renetta Olivas RDCS, RVT Venous Doppler Study 03/25/23 22:13 Interpretation Summary Acute deep vein thrombosis is noted in the right posterior tibial vein. Acute deep vein thrombosis is noted in the left posterior tibial vein. Ordering Physician: Jacob Suazo Performed By: Andrés Hernandez, RVT D/C Instructions Discharge Diet: 2000 mg Sodium Diet Weight Bearing Status: Weight bearing as tolerated Call your doctor if you observe: Fever of 101 or Higher, Coldness, Increased Pain, Numbness or Tingling, Change in Color, Inability to urinate, Inability to have a bowel movement, Shortness of breath, Dizziness, Fainting spells, Swelling in the ankles, Chest pain, Prolonged hiccupping, Increased palpitations (irregular heartbeat) and Calf discomfort When: IN 2 WEEKS Meaningful Use Info Meaningful Use Diagnoses (Choose all that apply): VTE VTE Anticoag overlap given w/in hospital stay or rx'd at ks?: No Reason overlap not ordered, prescribed, or given for 5 days: Treatment Not Indicated Discharge Plan Admission Admit Date/Time: 03/26/23 11:57 Primary Reason for Your Visit: Acute left lower lobe pulmonary embolism with history of lung cancer. Attending Provider: Martin Zaragoza Primary Care Provider: Dillan Cummins Consulting Providers: Jacob Suazo Instructions Additional Instructions / Restrictions: Patient needs to continue Eliquis most likely whole life as he has lung cancer. Follow-up picture enlarger Dr. Ji Calvillo [facility] within 2 weeks. Discharge Orders/Prescriptions Prescriptions: New Eliquis DVT-PE Treat 30D Start 5 mg (74 tabs) tablets,dose pack 5 mg PO BID Qty: 74 0RF Rx Instructions: 10 mg (2 tabs) twice daily for 7 days and then twice daily to continue. pseudoephedrine-guaifenesin [Mucus D] 120-1,200 mg tablet extended release 12 hr 1 tab PO Q12H 7 Days Qty: 14 0RF clopidogrel 75 mg Tablet 75 mg PO QPM 30 Days Qty: 30 2RF Continued oxycodone 5 mg tablet 2.5 - 5 mg PO Q6H PRN (Reason: PAIN AND BREATHING) fluticasone propion-salmeterol [Advair HFA] 230-21 mcg/actuation HFA aerosol inhaler 2 puff inhalation BID nitroglycerin 0.4 MG tablet 0.4 mg SL Q5M PRN (Reason: Chest Pain) polyethylene glycol 3350 [Miralax] 17 gram Powder In Packet 17 g PO DAILY PRN (Reason: Constipation) lorazepam [Ativan] 1 mg tablet 0.5 - 1 mg PO TID PRN (Reason: Anxiety) acetaminophen [Tylenol] 325 mg Tablet 650 mg PO Q4H PRN (Reason: Pain) atorvastatin 40 mg tablet 40 mg PO QHS duloxetine 30 mg capsule,delayed release(DR/EC) 30 mg PO QPM tamsulosin 0.4 mg capsule 0.4 mg PO QPM Spiriva Respimat 2.5 mcg/actuation mist 2 puff INHALATION DAILY Rx Instructions: USES AROUND NOON lidocaine 4 % adhesive patch,medicated 1 patch TOPICAL DAILY Rx Instructions: APPLY TO AFFECTED AREA FOR 12 HOURS, AND THEN TAKE OFF FOR 12 HOURS prednisone 10 mg tablet 10 mg PO QDAY Qty: 90 3RF Hold Instructions: Resume on 12/28/21. hold while on prednisone burst & taper levalbuterol tartrate 45 mcg/actuation HFA aerosol inhaler 2 inh inhalation Q4H PRN (Reason: shortness of breath or wheezing) Qty: 15 11RF Held aspirin 81 MG tablet,chewable 81 mg PO QPM Hold Instructions: Hold it while patient is taking Eliquis. Patient Comments: heart, blood thinner Discontinued clopidogrel 75 MG tablet 75 mg PO QPM guaifenesin [Mucinex] 1,200 mg Tablet Extended Release 12hr 1,200 mg PO BID levofloxacin 500 mg tablet 500 mg PO DAILY Rx Instructions: END DATE: 03/25/23 Referrals / Follow Up: Dillan Cummins MD [Primary Care Provider] - 04/03/23 2:20 pm Albert Ball DO [Med Staff - Active Staff] - Within 1 Month (For hypercoagulable disease with pulmonary embolism, history of lung cancer.) Disposition Disposition (needs filled in before D/C Order can be placed): Home, Self Care Charges/Coding Visit Charges Inpatient E&M: 62011 Disch Hosp >30min
--- NOTE | 2023-03-27 11:38 | PHA.DC_ITS ---
Pharmacy [facility] has performed discharge medication reconciliation and counseling for this patient. The patient's discharge medication list was reviewed for discrepancies and discrepancies were resolved. The patient was counseled on the following discharge medications and changes in medications for homegoing were reviewed. The Reason for Use, instructions for use, and potential side effects were reviewed for all new medications. The patient's questions regarding all of their medications were answered. 1. Apixaban 10 mg PO BID x 7 days, then 5 mg PO BID thereafter 2. Mucinex D 1 tablet PO BID x 7 days The patient was able to verbally demonstrate an understanding of their discharge medications. Medications at Discharge Home Medications aspirin 81 mg chewable tablet 81 mg PO QPM heart health 12/29/14 nitroglycerin 0.4 mg sublingual tablet 0.4 mg sublingual Q5M PRN Chest Pain 12/29/14 lorazepam 1 mg tablet (Ativan) 0.5 - 1 mg PO TID PRN Anxiety 07/09/20 polyethylene glycol 3350 17 gram oral powder packet (Miralax) 17 g PO DAILY PRN Constipation 07/09/20 acetaminophen 325 mg tablet (Tylenol) 650 mg PO Q4H PRN Pain 08/13/20 prednisone 10 mg tablet 10 mg PO QDAY #90 tabs 01/15/22 oxycodone 5 mg tablet 2.5 - 5 mg PO Q6H PRN PAIN AND BREATHING 02/05/22 levalbuterol tartrate 45 mcg/actuation aerosol inhaler 2 inh inhalation Q4H PRN shortness of breath or wheezing #15 grams 07/25/22 fluticasone propionate 230 mcg-salmeterol 21 mcg/actuation HFA inhaler (Advair HFA) 2 puff inhalation BID 08/07/22 atorvastatin 40 mg tablet 40 mg PO QHS cholesterol 03/25/23 duloxetine 30 mg capsule,delayed release 30 mg PO QPM DEPRESSION 03/25/23 lidocaine 4 % topical patch 1 patch topical DAILY 03/25/23 tamsulosin 0.4 mg capsule 0.4 mg PO QPM BLADDER/ PROSTATE 03/25/23 tiotropium bromide 2.5 mcg/actuation mist for inhalation (Spiriva Respimat) 2 p uff inhalation DAILY copd 03/25/23 apixaban 5 mg (74 tabs) tablets in a dose pack (Eliquis DVT-PE Treat 30D Start) 5 mg PO BID #74 tabs 03/27/23 clopidogrel 75 mg tablet 75 mg PO QPM 30 days #30 tabs 03/27/23 pseudoephedrine-guaifenesin ER 120 mg-1,200 mg tab,extend release 12hr (Mucus D) 1 tab PO Q12H 1 week #14 tabs 03/27/23
--- NOTE | 2023-03-27 12:00 | CASEMGMT ---
Patient has order for discharge. Patient maintaining on home oxygen. Patient discharging on Eliquis, called [facility] and copay is $47. RN CM in to update patient of Eliquis cost and needs at discharge. Patient denies needs or help at discharge, has oxygen from home. Patient and had no further questions or concerns at this time.
== END 2023-03-27 13:44 | disposition home or self-care (01) | DRG 176 ==
LOC: ED 15:30 → PCU 03-26 06:21
PROVIDERS: Family Medicine; Admitting Provider Hospitalist; Emergency Provider Emergency Medicine; PCP Family Medicine; Visit Provider Internal Medicine
DX: I26.99 Other pulmonary embolism without acute cor pulmonale (principal); J96.11 Chronic respiratory failure with hypoxia; E87.20 Acidosis, unspecified; N13.8 Other obstructive and reflux uropathy; R04.2 Hemoptysis; D49.1 Neoplasm of unspecified behavior of respiratory system; I10 Essential (primary) hypertension; F32.A Depression, unspecified; I25.10 Atherosclerotic heart disease of native coronary artery without angina pectoris; E78.5 Hyperlipidemia, unspecified; Z87.891 Personal history of nicotine dependence; Z79.51 Long term (current) use of inhaled steroids; Z79.02 Long term (current) use of antithrombotics/antiplatelets; Z79.82 Long term (current) use of aspirin; Z92.3 Personal history of irradiation; J44.89 Other specified chronic obstructive pulmonary disease; N40.1 Benign prostatic hyperplasia with lower urinary tract symptoms; Z79.01 Long term (current) use of anticoagulants; Z79.52 Long term (current) use of systemic steroids; Z66 Do not resuscitate; Z85.118 Personal history of other malignant neoplasm of bronchus and lung; G89.29 Other chronic pain
CPT/HCPCS: 36415; 71275; 80048; 80053; 83605; 83880; 84153; 84484; 85025; 85027; 85610; 85730; 93005; 93306; 93970; 94640; 94668; 99252; 99285; Q9957; Q9967; A4216; C8929; G0463

== ENCOUNTER 2023-05-28 12:50 | Emergency (ER) | payer MEDICARE, BC, SELFPAY ==
[2023-05-28 12:51] VITALS: BP 151/70; PULSE 102; RESP 24; TEMP 36.1; O2SAT 99; BMI 24.8
--- NOTE | 2023-05-28 13:07 | EX.ED.GUMALE ---
HPI History of Present Illness Chief Complaint: Complaint Detail of Chief Complaint: Hematuria Informant: patient Narrative Narrative: Patient presents to the emergency department with complaint of hematuria that started this morning. He has some urgency but only small amounts of urine coming. He denies any significant back or abdomen pain. Patient on Eliquis for history of PE. Patient states he had similar episode few months ago that was short-lived. He does have history of prostate cancer for which she had hormonal therapy. [facility] Medical History (Updated 05/28/23 @ 17:[address] Edward Grant, DO) Abrasion Anxiety Benign essential HTN Bronchiectasis CAD (coronary artery disease) Cancer Cardiology follow-up encounter Chest pain Chronic cough Chronic hypoxemic respiratory failure COPD (chronic obstructive pulmonary disease) Coronary artery disease Depression Former smoker High cholesterol History of steroid therapy History of stress test History of weight loss HLD (hyperlipidemia) Injury of back Myocardial infarct No pertinent family history Nocturnal hypoxemia On home oxygen therapy Prostate CA Prostate disease Pulmonary embolus Pulmonary neoplasm Shortness of breath on exertion Stage 3 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 Syncope Tobacco dependence in remission Wears dentures Wears glasses Home Medications aspirin 81 mg chewable tablet 81 mg PO QPM heart health 12/29/14 [History Last Taken 03/24/23] nitroglycerin 0.4 mg sublingual tablet 0.4 mg sublingual Q5M PRN Chest Pain 12/29/14 [History Last Taken 1 Week Ago ~07/02/20] lorazepam 1 mg tablet (Ativan) 0.5 - 1 mg PO TID PRN Anxiety 07/09/20 [History Last Taken 03/25/23] polyethylene glycol 3350 17 gram oral powder packet (Miralax) 17 g PO DAILY PRN Constipation 07/09/20 [History Last Taken 03/24/23] acetaminophen 325 mg tablet (Tylenol) 650 mg PO Q4H PRN Pain 08/13/20 [History Last Taken 03/24/23] oxycodone 5 mg tablet 5 mg PO Q6H PRN PAIN AND BREATHING 02/05/22 [History Last Taken 03/25/23] fluticasone propionate 230 mcg-salmeterol 21 mcg/actuation HFA inhaler (Advair HFA) 2 puff inhalation BID 08/07/22 [History Last Taken 03/25/23] atorvastatin 40 mg tablet 40 mg PO QHS cholesterol 03/25/23 [History Last Taken 03/24/23] duloxetine 30 mg capsule,delayed release 30 mg PO QPM DEPRESSION 03/25/23 [History Last Taken 03/24/23] lidocaine 4 % topical patch 1 patch topical DAILY 03/25/23 [History Last Taken 03/25/23] tamsulosin 0.4 mg capsule 0.4 mg PO QPM BLADDER/ PROSTATE 03/25/23 [History Last Taken 03/25/23] tiotropium bromide 2.5 mcg/actuation mist for inhalation (Spiriva Respimat) 2 puff inhalation DAILY copd 03/25/23 [History Last Taken 03/24/23] apixaban 5 mg (74 tabs) tablets in a dose pack ([employer] DVT-PE Treat 30D Start) 5 mg PO BID #74 tabs 03/27/23 [Rx Last Taken Unknown] ondansetron HCl 4 mg tablet 4 mg PO Q6H PRN nausea/vomiting 05/28/23 [History Last Taken Unknown] Allergy/AdvReac Type Severity Reaction Status Date / Time isosorbide [From Imdur] Allergy Other-patient Verified 05/28/23 12:51 blacks out Family History Other No pertinent family history Surgical History Hx of CABG Hx of CABG Hx of heart artery stent Hx of pneumonectomy Hx of transurethral resection of prostate No pertinent past surgical history Social History Smoking Status: Former smoker Tobacco: How many years used: 45 Electronic Cigarette Use: not used how long ago did patient quit smokin, second hand exposure: Yes alcohol intake: never substance use type: does not use ROS ROS ED Review of Systems ROS Unobtainable: other Constitutional Constitutional ED: Reports lethargy; Denies chills, fever(s), sweats or weight loss Eyes Eyes: Denies blurry vision, change in vision or diplopia ENT ENT ED: Denies rhinorrhea or sore throat Cardiovascular Cardiovascular: Denies chest pain, orthopnea or racing heartbeat Respiratory/Chest Respiratory/Chest: Denies cough, dyspnea, dyspnea on exertion, orthopnea or sputum Gastrointestinal Gastrointestinal: Denies abdominal pain, diarrhea, nausea or vomiting Genitourinary Genitourinary ED: Reports hematuria; Denies dysuria or urinary frequency Musculoskeletal Musculoskeletal: Denies arthralgias, back pain, myalgias or neck pain Integumentary Denies abscess, Abrasions or rash Neurologic Neurologic: Denies headache(s) or weakness Psychiatric Psychiatric: Denies anxiety, depression or suicidal thoughts Endocrine Endocrinology: Denies polydipsia, polyphagia or polyuria Hematologic/Lymphatic Hematologic/Lymphatic: Denies easy bleeding, easy bruising or lymphadenopathy Allergic/Immunologic Allergic/Immunologic ED: Denies mouth swelling, tongue swelling or urticaria EXAM Physical Exam Const Vital Signs: 05/28/23 12:51 05/28/23 14:50 05/28/23 16:00 Temperature 97.0 F L Temperature Source Temporal Pulse Rate 102 H 100 69 Respiratory Rate 24 H 19 H 18 Blood Pressure 151/70 H 162/87 H 164/83 H Blood Pressure Mean 97 112 110 Pulse Ox 99 97 99 Oxygen Delivery Method Nasal Cannula Nasal Cannula Nasal Cannula Oxygen Flow Rate (L/min) 4 3 3 Positive well nourished and well developed General Appearance ED: well developed and NAD HEENT Reports TM's clear and moist mucous membranes normocephalic and atraumatic; Negative for trauma or tenderness Tympanic Membrane ED: Yes TM's clear Eyes PERRL and EOMs intact bilaterally General Eye ED: Negative for pale conjunctiva or scleral icterus Neck no lymphadenopathy, supple and no JVD General: Negative for tenderness Chest Wall inspection of chest normal and palpation of chest normal Chest: Negative for tenderness Resp normal respiratory effort and clear to auscultation bilaterally Effort and Inspection: Negative for respiratory distress or pain with movement Auscultation: Negative for rhonchi, wheezes or diminished lung sounds Cardio regular rate, regular rhythm, S1 normal heart sound, S2 normal heart sound and no murmurs Peripheral Pulses: pulses 2+ throughout GI normal to inspection, nondistended, normoactive bowel sounds, soft to palpation, non-tender, non-distended and no masses Back/Spine no CVA tenderness and no thoracic nor lumbar tenderness Extremity normal to inspection General Extremety ED: Negative for edema General Extremity: Negative for edema Neuro oriented x3, CN's II-XII intact bilaterally, no sensory deficits noted and gait normal Sensorium / Orientation: awake, alert, oriented to person, oriented to place and oriented to time Motor Exam: strength 5/5 throughout and strength abnormal Psych mental status grossly normal Skin no rashes or lesions noted and no wounds MDM MDM MDM Narrative Medical decision making narrative: Patient presents with hematuria on Eliquis. IV line established. CBC with differential count of 10.2 with hemoglobin 12.1 and platelet count 246. Chemistries unremarkable. Urinalysis positive for blood but no signs of infection. I was able to evaluate the urine once he voided and appeared more darkish brown. Was not bright red. Initially was going to irrigate however we had a difficult time placing the Butt catheter and patient states last time urologist had to place it. He has history of prostate cancer and prior radiation. Discussed case with urologist who did not feel he needed bladder irrigation. Recommended that he discontinue his Eliquis and follow-up with his office within the next 3 to 4 days. It was felt to neurologist could do a bladder scope to evaluate further if need be. Urologist is available over weekend if patient should have any difficulties with voiding or severe pain or persistent heavy bleeding. Urology did not feel there is need for any type of imaging at this time. Lab Data Attestation: I reviewed the patient's lab results. Labs: Laboratory Results - last 24 hr 05/28/23 05/28/23 13:20 15:20 WBC 10.2 RBC 4.47 L Hgb 12.1 L Hct 41.0 MCV 91.7 MCH 27.1 MCHC 29.5 L RDW Std Deviation 51.2 H RDW Coeff of Estelita 15.3 H Plt Count 246 MPV 8.7 Immature Gran % (Auto) 0.500 Neut % (Auto) 93.4 H Lymph % (Auto) 2.9 L [place] % (Auto) 2.7 Eos % (Auto) 0.2 Baso % (Auto) 0.3 Absolute Neuts (auto) 9.5 H Absolute Lymphs (auto) 0.29 L Nucleated RBC % 0 Sodium 145 Potassium 3.4 L Chloride 115 H Carbon Dioxide 25.0 Anion Gap 5 BUN 14 Creatinine 0.63 L Estim Creat Clear Calc 78.44 Est GFR (MDRD) Af Amer 156 Est GFR (MDRD) Non-Af 129 BUN/Creatinine Ratio 22.1 H Glucose 131 H Calcium 7.1 L Urine Color Brown Urine Clarity Cloudy Urine pH 6.5 Ur Specific [place] 1.020 Urine Protein 100 H Urine Glucose (UA) Normal Urine Ketones 5 H Urine Occult Blood 250 H Urine Nitrite Negative Urine Bilirubin Negative Urine Urobilinogen Normal Ur Leukocyte Esterase 25 H Urine RBC > 100 SEEN Urine WBC 5-10 SEEN Ur Squamous Epith Cells 0 SEEN Urine Bacteria RARE Urine Mucus 0 SEEN Discharge Plan Triage Chief Complaint: Complaint ED Provider: Edward Grant Dx/Rx/DC Orders Clinical Impression: Hematuria Instructions: What is Hematuria? Prescriptions: No Action oxycodone 5 mg tablet 5 mg PO Q6H PRN (Reason: PAIN AND BREATHING) fluticasone propion-salmeterol [Advair HFA] 230-21 mcg/actuation HFA aerosol inhaler 2 puff inhalation BID nitroglycerin 0.4 MG tablet 0.4 mg SL Q5M PRN (Reason: Chest Pain) aspirin 81 MG tablet,chewable 81 mg PO QPM Hold Instructions: Hold it while patient is taking Eliquis. Patient Comments: heart, blood thinner polyethylene glycol 3350 [Miralax] 17 gram Powder In Packet 17 g PO DAILY PRN (Reason: Constipation) lorazepam [Ativan] 1 mg tablet 0.5 - 1 mg PO TID PRN (Reason: Anxiety) acetaminophen [Tylenol] 325 mg Tablet 650 mg PO Q4H PRN (Reason: Pain) atorvastatin 40 mg tablet 40 mg PO QHS duloxetine 30 mg capsule,delayed release(DR/EC) 30 mg PO QPM tamsulosin 0.4 mg capsule 0.4 mg PO QPM Spiriva Respimat 2.5 mcg/actuation mist 2 puff INHALATION DAILY Rx Instructions: USES AROUND NOON lidocaine 4 % adhesive patch,medicated 1 patch TOPICAL DAILY Rx Instructions: APPLY TO AFFECTED AREA FOR 12 HOURS, AND THEN TAKE OFF FOR 12 HOURS Eliquis DVT-PE Treat 30D Start 5 mg (74 tabs) tablets,dose pack 5 mg PO BID Qty: 74 0RF Rx Instructions: 10 mg (2 tabs) twice daily for 7 days and then twice daily to continue. ondansetron HCl 4 mg tablet 4 mg PO Q6H PRN (Reason: nausea/vomiting) Primary Care Provider: Dillan Cummins Referrals: Bruno Catalan MD [Med Staff - Active Staff] - 06/01/23 Dillan Cummins MD [Primary Care Provider] - Disposition Disposition: Home, Self Care
[2023-05-28] MEDS: 0.9% Normal Saline (1000mL) 1,000 ML 150 ML IV (13:25)
[2023-05-28 13:35] LABS: Absolute Lymphocyte Count 0.29 X10^3/uL (0.83-4.51); Absolute Neutrophil Count 9.5 X10^3/uL (2.0-7.7); Basophil# 0.03 X10^3/uL; Basophil% 0.3 % (0-1); Eosinophil# 0.02 X10^3/uL; Eosinophils% 0.2 % (0-5); Hemoglobin 12.1 g/dL (13.0-16.5); Lymphocyte # 0.29 X10^3/ul (0.83-4.51); Lymphocyte % 2.9 % (19-41); Mean Corp Hgb Conc 29.5 g/dL (32-36); Mean Corpuscular Hgb 27.1 pg (27.0-32.0); Mean Corpuscular Volume 91.7 fL (80-94); Mean Platelet Vol. 8.7 fl (6.2-12.0); Monocyte# 0.27 X10^3/uL; Monocyte% 2.7 % (0-10); NRBC Flagged by Analyzer 0 % (0-5); Neutrophil % 93.4 % (47-70); POSITIVE DIFFERENTIAL YES; Platelet Count 246 K/mm3 (150-450); RBC Distribution Width CV 15.3 % (11.6-14.6); RBC Distribution Width SD 51.2 fl (35.1-43.9); Red Blood Count 4.47 M/mm3 (4.6-6.2); White Blood Count 10.2 K/mm3 (4.4-11.0)
[2023-05-28 13:44] LABS: Anion Gap 5 (5-15); BUN 14 mg/dL (7-18); BUN/Creat Ratio 22.1 RATIO (10-20); Calcium,Total 7.1 mg/dL (8.5-10.1); Chloride 115 mmol/L (98-107); Creatinine, Serum 0.63 mg/dL (0.70-1.30); EST Glomerular Filtration Rate 129 mL/min (>60); Est Glom Filt Rate - Afr Amer 156 mL/min (>60); Estimated Creatinine Clearance 78.44 ml/min; Glucose 131 mg/dL (74-106); Potassium 3.4 mmol/L (3.5-5.1); Sodium Level 145 mmol/L (136-145)
[2023-05-28 14:50] VITALS: BP 162/87; PULSE 100; RESP 19; O2SAT 97
[2023-05-28 15:31] LABS: Mucous, Urine 0 SEEN /hpf (<or=2+); Squamous Epithelial Cells - UA 0 SEEN /hpf (0-5)
[2023-05-28 15:47] LABS: Color, Urine Brown (Yellow); Glucose, Dipstick Normal (Normal); Ketone-Dipstick 5 mg/dl (Negative); Leukocyte Esterase-Dipstick 25 /ul (Negative); Nitrite-Dipstick Negative (Negative); Occult Blood-Urine 250 /ul (Negative); Protein-Dipstick 100 mg/dl (Negative); Urine Bilirubin Dipstick Negative (Negative); Urine Clarity Cloudy (Clear); Urine Urobilinogen Normal (Normal); Urine pH 6.5 (5.0 - 8.0)
[2023-05-28 16:00] VITALS: BP 164/83; PULSE 69; RESP 18; O2SAT 99
[2023-05-28 16:07] LABS: Red Blood Cells-Urine > 100 SEEN /hpf (0-5); White Blood Cells 5-10 SEEN /hpf (0-5)
[2023-05-28 16:08] LABS: Bacteria RARE /hpf (None Seen)
[2023-05-28] MEDS: Lidocaine Jelly 2% 20 ML Syringe (URO-JET) 1 APPLIC TOPICAL (16:45)
--- NOTE | 2023-05-28 17:19 | ED.RN ---
RN attempted to put in 3-way irrigation catheter. Unable to place, Dr. Grant walked into room. MD stated he would speak with urologist. notified RM that order for irrigation was cancelled and pt would be d/c home.
[2023-05-28 17:21] VITALS: BP 138/81; PULSE 79; RESP 16; TEMP 36.6; O2SAT 99
== END 2023-05-28 17:22 | disposition home or self-care (01) ==
PROVIDERS: Emergency Provider Emergency Medicine; PCP Family Medicine; Visit Provider Emergency Medicine
DX: R31.9 Hematuria, unspecified (principal); J44.9 Chronic obstructive pulmonary disease, unspecified; Z87.891 Personal history of nicotine dependence; Z86.711 Personal history of pulmonary embolism; Z79.01 Long term (current) use of anticoagulants; Z85.46 Personal history of malignant neoplasm of prostate; I25.10 Atherosclerotic heart disease of native coronary artery without angina pectoris; I10 Essential (primary) hypertension; E78.00 Pure hypercholesterolemia, unspecified; I25.2 Old myocardial infarction; Z99.81 Dependence on supplemental oxygen; Z79.899 Other long term (current) drug therapy; Z79.82 Long term (current) use of aspirin; F41.9 Anxiety disorder, unspecified; Z79.51 Long term (current) use of inhaled steroids; F32.A Depression, unspecified; Z95.1 Presence of aortocoronary bypass graft; Z90.2 Acquired absence of lung [part of]
CPT/HCPCS: 80048; 81001; 85025; 96360; 96361; 99283; J7030; A4216

== ENCOUNTER → 2023-06-09 | Outpatient (CLI) | payer MEDICARE, BC, SELFPAY ==
--- NOTE | 2023-06-09 14:23 | CT_ITS ---
STUDY: CT ABDOMEN AND PELVIS WITH AND WITHOUT CONTRAST REASON FOR EXAM: Male, 82 years old. PROSTATE CANCER, GROSS HEMATURIA RADIATION DOSAGE (If Supplied By Facility): CTDIvol = ( 19.04 ) mGy, DLP = ( 2255.43 ) mGycm TECHNIQUE: Transaxial images were obtained from the dome of the diaphragm to the symphysis pubis without oral contrast. ISOVUE 370-100ml was administered. Sagittal and coronal images were reconstructed. Individualized dose optimization techniques were used for this CT. COMPARISON: Comparison is made with prior study dated January 16, 2015. FINDINGS: Focal thickening along the pleural surface in the left lower lobe adjacent to the loculated hydropneumothorax. Small loculated hydropneumothorax along the lateral aspect of the left lower lobe. Coronary artery calcification. There is decreased attenuation of the liver consistent with steatosis. Small layering gallstones are seen along the dependent portion of the gallbladder lumen. Normal spleen. Normal pancreas. Normal bilateral adrenal glands. Normal right kidney. Normal left kidney. Calcification of the intrarenal arterial branches bilaterally. Normal visualized stomach. Normal small intestine. There are multiple colonic diverticula consistent with diverticulosis. The appendix is visualized and appears normal. There is diffuse atherosclerotic calcification of the abdominal aorta and its major visceral branches. 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 Normal inferior vena cava. Normal retroperitoneum. Normal urinary bladder. Status post TURP. The prostate causes indentation at the bladder base. There is a small umbilical hernia containing fat. There are diffuse degenerative changes of the visualized lumbar spine. Loss of height of the superior endplate of the L4 vertebrae. Grade 1 anterolisthesis of L5 on S1 due to spondylolysis of the pars interarticularis of the L5 vertebrae. CT/CT Abd/Pelvis W/WO Contrast IMPRESSION: Scarring in the left lower lobe with a loculated hydropneumothorax. Prostatic enlargement with indentation of the bladder base. Sigmoid diverticulosis. Diffuse fatty infiltration of the liver. Electronically Signed: Fernando Sidhu MD at 15:09 EDT ,
== END | disposition home or self-care (01) ==
LOC: CT 14:21
PROVIDERS: PCP Family Medicine; Visit Provider Urology
DX: C61 Malignant neoplasm of prostate (principal); R31.0 Gross hematuria
CPT/HCPCS: 74178; Q9967

== ENCOUNTER 2023-09-28 11:02 | Inpatient (IN) | payer MEDICARE, BC, SELFPAY ==
[2023-09-28] VITALS (13 sets, daily range): BP systolic 136–178; BP diastolic 75–90; PULSE 80–102; RESP 16–28; TEMP 36.6; O2SAT 80–100; BMI 25.4; BMI 24.8
--- NOTE | 2023-09-28 11:31 | EKG12_ITS ---
Test Reason : SOB Blood Pressure : / mmHG Vent. Rate : 085 BPM Atrial Rate : 085 BPM P-R Int : 150 ms QRS Dur : 084 ms QT Int : 338 ms P-R-T Axes : 058 028 -55 degrees QTc Int : 402 ms Normal sinus rhythm ST & T wave abnormality, consider inferior ischemia Abnormal ECG Confirmed by SAHIL SOTO, LINDSEY ([id number]), assistant editor GRACE BAÑUELOS ([id number]) on 10/02/2023 9:52:46 AM Referred By: Confirmed By:ITA BAXTER MD
[2023-09-28 11:48] LABS: Absolute Lymphocyte Count 0.26 X10^3/uL (0.83-4.51); Absolute Neutrophil Count 8.3 X10^3/uL (2.0-7.7); Basophil# 0.01 X10^3/uL; Basophil% 0.1 % (0-1); Eosinophil# 0.01 X10^3/uL; Eosinophils% 0.1 % (0-5); Hematocrit 35.6 % (40-54); Hemoglobin 10.9 g/dL (13.0-16.5); Lymphocyte # 0.26 X10^3/ul (0.83-4.51); Lymphocyte % 2.9 % (19-41); Mean Corp Hgb Conc 30.6 g/dL (32-36); Mean Corpuscular Volume 88.3 fL (80-94); Monocyte% 4.4 % (0-10); NRBC Flagged by Analyzer 0 % (0-5); Neutrophil # 8.29 X10^3/uL (2.7-7.7); Neutrophil % 91.9 % (47-70); POSITIVE DIFFERENTIAL YES; Platelet Count 206 K/mm3 (150-450); RBC Distribution Width CV 15.9 % (11.6-14.6); RBC Distribution Width SD 51.7 fl (35.1-43.9); Red Blood Count 4.03 M/mm3 (4.6-6.2)
[2023-09-28] MEDS: Pantoprazole Sodium 40 MG in 0.9% Normal Saline (100mL MB+) 100 ML 330 MG IV (11:55)
[2023-09-28] MEDS: 0.9% Normal Saline (1000mL) 1,000 ML 999 ML IV (11:57)
[2023-09-28 12:10] LABS: ALB/GLOB Ratio 0.8 RATIO (0.9-2.4); AST(SGOT) 20 U/L (15-37); Alanine Aminotransfer ALT/SGPT 19 U/L (16-61); Albumin, Serum 2.8 g/dL (3.2-5.0); Alkaline Phosphatase 80 U/L (45-117); Anion Gap 3 (5-15); BUN 18 mg/dL (7-18); BUN/Creat Ratio 19.4 RATIO (10-20); Calcium,Total 8.6 mg/dL (8.5-10.1); Chloride 108 mmol/L (98-107); Creatinine, Serum 0.93 mg/dL (0.70-1.30); EST Glomerular Filtration Rate 83 mL/min (>60); Est Glom Filt Rate - Afr Amer 101 mL/min (>60); Estimated Creatinine Clearance 66.35 ml/min; Globulin 3.5 g/dL (2.2-4.2); Glucose 170 mg/dL (74-106); Lipase 38 U/L (13-75); Potassium 3.7 mmol/L (3.5-5.1); Protein, Total 6.3 g/dL (6.4-8.2); Sodium Level 140 mmol/L (136-145); Troponin-I HS 30 pg/mL (3.0-78.0)
[2023-09-28 12:27] LABS: Lactic Acid 1.9 mmol/L (0.4-1.9)
[2023-09-28 13:09] LABS: Bacteria 0 SEEN /hpf (None Seen); Mucous, Urine 0 SEEN /hpf (<or=2+); Squamous Epithelial Cells - UA 0 SEEN /hpf (0-5); White Blood Cells 0 SEEN /hpf (0-5)
[2023-09-28 13:11] LABS: Color, Urine Yellow (Yellow); Glucose, Dipstick Normal (Normal); Ketone-Dipstick Negative (Negative); Leukocyte Esterase-Dipstick Negative /ul (Negative); Nitrite-Dipstick Negative (Negative); Occult Blood-Urine 10 /ul (Negative); Protein-Dipstick 15 mg/dl (Negative); Specific Gravity, Urine 1.015 (1.002-1.030); Urine Bilirubin Dipstick Negative (Negative); Urine Clarity Clear (Clear); Urine Urobilinogen Normal (Normal)
[2023-09-28 13:18] LABS: Red Blood Cells-Urine 0-5 SEEN /hpf (0-5)
--- NOTE | 2023-09-28 13:30 | RAD_ITS ---
STUDY: X-RAY CHEST REASON FOR EXAM: Male, 83 years old. Sob TECHNIQUE: Single AP portable view of the chest. COMPARISON: Comparison is made with prior study dated December 15, 2021. FINDINGS: EKG electrodes are seen. Stable calcified right pleural plaques. Pleural-parenchymal changes at the lung bases worse on the left side. Findings suggest bilateral basilar scarring. There now is evidence of a 2.6 cm x 2 cm nodule in the lateral aspect of the left lower lobe. Correlation with the CT scan is recommended. Sternal cerclage wires are present from a prior sternotomy. Normal mediastinum and pepito. Normal visualized pulmonary arteries. There is atherosclerotic calcification of the aortic arch with tortuosity. There are diffuse degenerative changes of the visualized thoracic spine. There is degenerative osteoarthritis of the bilateral shoulders. There is no demonstrated abnormality of the visualized soft tissue structures of the upper abdomen. RAD/Chest 1 View (Portable) IMPRESSION: Pleural parenchymal changes at the lung bases worse on the left side which have progressed. Pleural calcified plaques in the right hemithorax. Findings suggestive of a 2.6 cm x 2 cm nodule in the lateral aspect of the left lower lobe. Correlation with a CT scan is recommended. Electronically Signed: Fernando Sidhu MD at 13:55 EDT ,
--- NOTE | 2023-09-28 13:35 | EX.ED.DYSGE1 ---
HPI History of Present Illness Chief Complaint: Shortness of Breath Narrative Narrative: Patient is a 83-year-old male with a past medical history of DVT on Eliquis, hyperlipidemia, CAD, hypertension, COPD on 3 to 4 L nasal cannula who presents to the emergency department with a chief complaint of shortness of breath and dark tarry stools for 3 days now. Patient states that starting yesterday evening he had significant shortness of breath with minimal exertion and noted that he had the dark tarry stools prompting him to come here for further evaluation management. Patient states that he has not had it for like this happen in the past. Patient states when he is lying down he feels okay but if he tries to move is when his symptoms worsen. [facility] Medical History Depression Myocardial infarct Coronary artery disease Pulmonary neoplasm Pulmonary embolus Wears glasses Wears dentures Cancer Anxiety Abrasion History of steroid therapy Prostate disease High cholesterol Injury of back Syncope History of weight loss Former smoker COPD (chronic obstructive pulmonary disease) On home oxygen therapy Shortness of breath on exertion Chronic cough History of stress test Cardiology follow-up encounter Chest pain No pertinent family history 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 Nocturnal hypoxemia Chronic hypoxemic respiratory failure Bronchiectasis Prostate CA CAD (coronary artery disease) HLD (hyperlipidemia) Benign essential HTN Home Medications ?Medication ?Instructions ?Recorded ?Last Taken ?Type aspirin 81 mg chewable tablet 81 mg PO QPM heart health 12/29/14 03/24/23 History nitroglycerin 0.4 mg sublingual 0.4 mg sublingual Q5M PRN Chest 12/29/14 1 Week Ago History tablet Pain ~07/02/20 lorazepam 1 mg tablet (Ativan) 0.5 - 1 mg PO TID PRN Anxiety 07/09/20 03/25/23 History polyethylene glycol 3350 17 gram 17 g PO DAILY PRN Constipation 07/09/20 03/24/23 History oral powder packet (Miralax) acetaminophen 325 mg tablet 650 mg PO Q4H PRN Pain 08/13/20 03/24/23 History (Tylenol) oxycodone 5 mg tablet 5 mg PO Q6H PRN PAIN AND BREATHING 02/05/22 09/28/23 History fluticasone propionate 230 2 puff inhalation BID 08/07/22 03/25/23 History mcg-salmeterol 21 mcg/actuation HFA inhaler (Advair HFA) atorvastatin 40 mg tablet 40 mg PO QHS cholesterol 03/25/23 03/24/23 History duloxetine 30 mg capsule,delayed 30 mg PO QPM DEPRESSION 03/25/23 03/24/23 History release tamsulosin 0.4 mg capsule 0.4 mg PO QPM BLADDER/ PROSTATE 03/25/23 03/25/23 History tiotropium bromide 2.5 2 puff inhalation DAILY copd 03/25/23 03/24/23 History mcg/actuation mist for inhalation (Spiriva Respimat) apixaban 5 mg (74 tabs) tablets in 5 mg PO BID #74 tabs 03/27/23 Unknown Rx a dose pack (Ardelyx DVT-PE Treat 30D Start) doxycycline monohydrate 100 mg 100 mg PO BID 09/28/23 09/28/23 History capsule ezetimibe 10 mg tablet 10 mg PO DAILY 09/28/23 Unknown History fluticasone fur. 100 mcg-umeclid 1 ea inhalation DAILY 09/28/23 Unknown History 62.5 mcg-vilant 25 mcg inhalat.powder (Trelegy Ellipta) guaifenesin 600 mg tablet, 1,200 mg PO Q12H PRN cough 09/28/23 Unknown History extended release 12 hr (Mucinex) levalbuterol tartrate 45 2 puff inhalation Q4H PRN PRN 09/28/23 Unknown History mcg/actuation aerosol inhaler wheezing prednisone 10 mg tablet 10 mg PO DAILY 09/28/23 Unknown History Allergy/AdvReac Type Severity Reaction Status Date / Time isosorbide (From Imdur) Allergy Other-patient Verified 09/28/23 11:07 blacks out Family History Other No pertinent family history Surgical History Hx of CABG Hx of heart artery stent Hx of transurethral resection of prostate Hx of pneumonectomy Hx of CABG No pertinent past surgical history Social History Smoking Status: Former smoker Tobacco: How many years used: 45 Electronic Cigarette Use: not used how long ago did patient quit smokin, second hand exposure: Yes alcohol intake: never substance use type: does not use ROS ROS ED ROS Narrative Constitutional: Denies headaches, lightheadedness, dizziness, fevers, chills Eyes: Denies change in vision elevated blood Cardiovascular: Denies chest pain or palpitations Respiratory: Denies coughing wheezing complains of shortness of breath as noted above, Abdomen: Complains of dark tarry stools noted above denies abdominal pain, nausea, vomiting : Denies any urinary symptoms Neurological: Denies numbness, weakness, tingling Musculoskeletal: Denies back pain Skin: Denies rashes or lesions EXAM Physical Exam Narrative Exam Narrative: General: Patient lying in bed did appear to be short of breath Head: Atraumatic, normocephalic Eyes: Pupils equal round react to light bilaterally, extraocular muscles intact body, no conjunctival injection noted Neck: Soft, supple, trachea midline Cardiovascular: Regular rate and rhythm no murmurs gallops rubs noted Respiratory: Diminished breath sounds at the base, no rhonchi or wheezing noted Abdomen: Soft, nondistended, no tenderness palpation, bowel sounds present x 4 Extremities: No pedal edema on exam, +5/5 strength noted in the bilateral upper and lower extremity Neurological: Patient following commands knew he was at [facility] year is 2023 Skin: Warm, dry, intact Const Vital Signs: 09/28/23 11:03 09/28/23 11:08 09/28/23 12:07 Temperature 97.8 F 97.8 F Temperature Source Oral Oral Pulse Rate 96 80 Respiratory Rate 28 H 16 Respiratory Effort Normal Non-Labored Respiratory Depth Normal Respiratory Pattern Normal Blood Pressure 161/75 H 136/76 H Blood Pressure Mean 103 96 Pulse Ox 100 99 Oxygen Delivery Method Nasal Cannula Nasal Cannula Nasal Cannula Oxygen Flow Rate (L/min) 3 3 3 09/28/23 13:00 09/28/23 13:20 09/28/23 13:26 Temperature 97.8 F Temperature Source Oral Pulse Rate 85 Respiratory Rate 18 Respiratory Effort Respiratory Depth Respiratory Pattern Blood Pressure 142/83 H Blood Pressure Mean 102 Pulse Ox 98 80 91 Oxygen Delivery Method Nasal Cannula Nasal Cannula Nasal Cannula Oxygen Flow Rate (L/min) 3 3 3 09/28/23 13:57 Temperature 97.8 F Temperature Source Pulse Rate 82 Respiratory Rate 18 Respiratory Effort Respiratory Depth Respiratory Pattern Blood Pressure 178/90 H Blood Pressure Mean 119 Pulse Ox 97 Oxygen Delivery Method Oxygen Flow Rate (L/min) MDM MDM MDM Narrative Medical decision making narrative: Patient is a 83-year-old male who presented to the emergency department chief complaint of dyspnea on exertion, concern for upper GI bleed on Eliquis for the past 3 days now. Patient will have workup performed here on the differential diagnose includes but limited to upper GI bleed, pneumonia, COPD exacerbation, ACS, hemorrhoid. Once workup is obtained reviewed he will be reevaluated. Patient was placed on Protonix drip. Patient CBC reviewed and showed no evidence of leukocytosis white blood count was noted to be 9, hemoglobin stable 10.9, platelet count was noted to be normal at 206. Patient sodium normal 140, potassium 3.7, creatinine normal at 0.93 with a normal BUN of 18. Patient's AST and ALT were 2019 respectively with a normal alk phosphatase of 80. Patient lipase normal at 38, urinalysis did not reveal any evidence of infection. Patient's chest x-ray was reviewed and showed pleural-parenchymal changes at the lung bases worse on the left side which have progressed pleural calcified plaques in the right hemithorax. Findings suggestive of a 2.6 cm x 2 cm nodule in the lateral aspect of the left lower lobe correlation with CT is recommended. Did do a rectal exam and patient did noted to have a hemorrhoid with some bleeding noted however there was a large clot noted superiorly to this that was dark in nature. Patient did become hypoxic on his nasal cannula during the procedure to 79%. Did discuss the case with gastroenterology Dr. Moreno who is recommending adding on a CT angiography of the abdomen pelvis which was added on the workup. I did discuss the case with hospitalist Dr. Edmondson who states that she will accept the patient for admission. Patient was notified with all question concerns answered at bedside. Lab Data Labs: Laboratory Results - last 24 hr 09/28/23 09/28/23 09/28/23 11:20 11:53 13:06 WBC 9.0 RBC 4.03 L Hgb 10.9 L Hct 35.6 L MCV 88.3 MCH 27.0 MCHC 30.6 L RDW Std Deviation 51.7 H RDW Coeff of Estelita 15.9 H Plt Count 206 MPV 9.0 Immature Gran % (Auto) 0.600 Neut % (Auto) 91.9 H Lymph % (Auto) 2.9 L [place] % (Auto) 4.4 Eos % (Auto) 0.1 Baso % (Auto) 0.1 Absolute Neuts (auto) 8.3 H Absolute Lymphs (auto) 0.26 L Nucleated RBC % 0 Sodium 140 Potassium 3.7 Chloride 108 H Carbon Dioxide 29.0 Anion Gap 3 L BUN 18 Creatinine 0.93 Estim Creat Clear Calc 66.35 Est GFR (MDRD) Af Amer 101 Est GFR (MDRD) Non-Af 83 BUN/Creatinine Ratio 19.4 Glucose 170 H Lactic Acid 1.9 Calcium 8.6 Total Bilirubin 0.40 AST 20 ALT 19 Alkaline Phosphatase 80 Troponin I High Sens 30 B-Natriuretic Peptide 68.8 Total Protein 6.3 L Albumin 2.8 L Globulin 3.5 Albumin/Globulin Ratio 0.8 L Lipase 38 Urine Color Yellow Urine Clarity Clear Urine pH 6.0 Ur Specific [place] 1.015 Urine Protein 15 H Urine Glucose (UA) Normal Urine Ketones Negative Urine Occult Blood 10 H Urine Nitrite Negative Urine Bilirubin Negative Urine Urobilinogen Normal Ur Leukocyte Esterase Negative Urine RBC 0-5 SEEN Urine WBC 0 SEEN Ur Squamous Epith Cells 0 SEEN Urine Bacteria 0 SEEN Urine Mucus 0 SEEN Blood Type O NEGATIVE Antibody Screen NEGATIVE Radiography Diagnostic Testing: Clinical Impression(s) from Imaging Studies Chest X-Ray 09/28/23 13:30 IMPRESSION: Pleural parenchymal changes at the lung bases worse on the left side which have progressed. Pleural calcified plaques in the right hemithorax. Findings suggestive of a 2.6 cm x 2 cm nodule in the lateral aspect of the left lower lobe. Correlation with a CT scan is recommended. Electronically Signed: Fernando Sidhu MD at 13:55 EDT , Discharge Plan Triage Chief Complaint: Shortness of Breath Other Complaint: GI Bleed ED Provider: Tristan Salter Dx/Rx/DC Orders Prescriptions: No Action oxycodone 5 mg tablet 5 mg PO Q6H PRN (Reason: PAIN AND BREATHING) fluticasone propion-salmeterol [Advair HFA] 230-21 mcg/actuation HFA aerosol inhaler 2 puff inhalation BID nitroglycerin 0.4 MG tablet 0.4 mg SL Q5M PRN (Reason: Chest Pain) aspirin 81 MG tablet,chewable 81 mg PO QPM Patient Comments: heart, blood thinner polyethylene glycol 3350 [Miralax] 17 gram Powder In Packet 17 g PO DAILY PRN (Reason: Constipation) lorazepam [Ativan] 1 mg tablet 0.5 - 1 mg PO TID PRN (Reason: Anxiety) acetaminophen [Tylenol] 325 mg Tablet 650 mg PO Q4H PRN (Reason: Pain) atorvastatin 40 mg tablet 40 mg PO QHS duloxetine 30 mg capsule,delayed release(DR/EC) 30 mg PO QPM tamsulosin 0.4 mg capsule 0.4 mg PO QPM Spiriva Respimat 2.5 mcg/actuation mist 2 puff INHALATION DAILY Rx Instructions: USES AROUND NOON Eliquis DVT-PE Treat 30D Start 5 mg (74 tabs) tablets,dose pack 5 mg PO BID Qty: 74 0RF Rx Instructions: 10 mg (2 tabs) twice daily for 7 days and then twice daily to continue. prednisone 10 mg tablet 10 mg PO DAILY doxycycline monohydrate 100 mg capsule 100 mg PO BID ezetimibe 10 mg tablet 10 mg PO DAILY levalbuterol tartrate 45 mcg/actuation HFA aerosol inhaler 2 puff inhalation Q4H PRN PRN (Reason: wheezing) Trelegy Ellipta 100-62.5-25 mcg blister with device 1 ea inhalation DAILY guaifenesin [Mucinex] 600 mg tablet extended release 12hr 1,200 mg PO Q12H PRN (Reason: cough) Primary Care Provider: Dillan Cummins Referrals: Dillan Cummins MD [Primary Care Provider] - Print Language: Mauritanian
--- NOTE | 2023-09-28 13:46 | CT_ITS ---
STUDY: CTA ABDOMEN AND PELVIS WITH CONTRAST REASON FOR EXAM: Male, 83 years old. gi bleed. Bloody stools. RADIATION DOSAGE (If Supplied By Facility): CTDIvol = ( 14.87 ) mGy, DLP = ( 1102.93 ) mGycm TECHNIQUE: Transaxial images were obtained from the dome of the diaphragm to the symphysis pubis without oral contrast. IV 100mL Isovue-370 was administered. Sagittal and coronal images were reconstructed. Individualized dose optimization techniques were used for this CT. COMPARISON: Comparison is made with prior study of June 09, 2023. FINDINGS: Nodular densities in the right lower lobe as described on the CT scan of thorax. Cystic density in the lateral aspect of the left lung base with an air-fluid level as described on prior CT scan thorax. There is decreased attenuation of the liver consistent with steatosis. Findings suggestive of small gallstones in the gallbladder lumen. Normal spleen. Normal pancreas. Normal bilateral adrenal glands. There is a 2 cm cyst in the anterior inferior pole of the right kidney. Normal left kidney. Normal visualized stomach. Normal small intestine. There are multiple colonic diverticula consistent with diverticulosis. The appendix is visualized and appears normal. There is diffuse atherosclerotic calcification of the abdominal aorta. Aneurysmal dilatation of the distal abdominal aorta with a transverse dimension of 2.8 cm. Anterior mural thrombus. This is unchanged. Normal inferior vena cava. Normal retroperitoneum. Normal urinary bladder. Prostatic enlargement with indentation of the bladder base. Findings suggestive of prior TURP. There is a small umbilical hernia containing fat. There are diffuse degenerative changes of the visualized lumbar spine. Loss of height of the superior endplate of the L4 vertebrae. Grade 2 anterolisthesis of L5 on S1 due to spondylolysis of the pars interarticularis of the L5 vertebrae. CT/CTA Abd/Pelvis W/WO Contrast IMPRESSION: Diffuse fatty infiltration of the liver. Small gallstones are seen along the dependent portion of the gallbladder lumen. Infrarenal abdominal aortic aneurysm. This is stable. Prostatic enlargement with indentation of the bladder base. Sigmoid diverticulosis. Electronically Signed: Fernando Sidhu MD at 14:44 EDT ,
[2023-09-28] MEDS: Pantoprazole Sodium 80 MG in 0.9% Normal Saline (100mL Bag) 80 ML 10 MG CONT INF (13:50)
--- NOTE | 2023-09-28 14:03 | CT_ITS ---
STUDY: CT CHEST WITH CONTRAST REASON FOR EXAM: Male, 83 years old. Increased SOB w/ abn cxr RADIATION DOSAGE (If Supplied By Facility): CTDIvol = ( 14.87 ) mGy, DLP = ( 1102.93 ) mGycm TECHNIQUE: Transaxial imaging was performed following intravenous administration of IV 100mL Isovue-370. Multiplanar coronal and sagittal images were reformatted. Individualized dose optimization techniques were used for this CT. COMPARISON: Comparison is made with prior chest radiograph done earlier in the day and prior CTA scan the thorax dated March 25, 2023. FINDINGS: CHEST Stable 8.2 cm x 4 cm cavitated pleural-based lesion in the lateral aspect of the left lower lobe abutting the left major fissure. There is evidence of adjacent stranding extending to the medial aspect of the left lower lobe. Stable spiculated lesion in the left upper lobe. There has been enlargement of the previously seen heterogeneous nodules in the peripheral aspect of the right lower lobe. Mild degree of anterior right pleural plaque formation. Sternal cerclage wires and vascular clips are present from a prior sternotomy and coronary artery bypass graft procedure (CABG). There are calcifications of the coronary arteries. Normal mediastinum. Normal hilar regions. Normal unenhanced pulmonary arteries. Normal aorta arch and descending thoracic aorta. There are multi-level degenerative changes of the thoracic spine. Small gallstones are seen in the gallbladder lumen. Right renal cyst. Abdominal aortic aneurysm with mural thrombus. CT/Chest WITH Contrast IMPRESSION: Stable cavitating lesion along the pleural surface of the left lower lobe with fluid within the cavitation. Stable spiculated density in the left upper lobe with increasing nodular densities in the right lower lobe. Metastatic deposits should be ruled out. Right calcified pleural plaques. Electronically Signed: Fernando Sidhu MD at 14:38 EDT ,
--- NOTE | 2023-09-28 14:38 | PCM.HP.STD ---
HPI - General General Date of Admission: 09/28/23 Date of Service: 09/28/23 Chief Complaint: SOB and dark stool HPI Narrative OSWALDO MENDIOLA, is a 83-year-old male history of DVT and PE on Eliquis, left-sided squamous cell lung cancer, CAD, BPH, hypertension, COPD on 3 to 4 L nasal cannula who presented to [facility] ED 09/28/2023 for increased shortness of breath and dark tarry stool for 3 days prompting him to come for further management. In the ED he had rectal exam with dark clot noted and when he laid down for exam his oxygen saturation dropped to 70% on 3 L and recovered slowly when sat back up. GI contacted who recommended CTA abdomen and patient also had chest x-ray obtained which showed worsened pleural-parenchymal changes at left lung base and a nodule in lateral aspect of left lower lobe. Given his hypoxia and concern for GI bleed hospitalist contacted for admission. Patient evaluated bedside and he reports he has had increasing shortness of breath and cough since and was given doxycycline but feels he is getting worse prompting ED evaluation but also noted dark stools for the past 3 days without diarrhea or abdominal pain. No fevers or chills but notes was sick with sinus infection about a week ago and was treated conservatively, no fevers or chills, no chest pain. No other focal complaints [facility] Medical History Depression Myocardial infarct Coronary artery disease Pulmonary neoplasm Pulmonary embolus Wears glasses Wears dentures Cancer Anxiety Abrasion History of steroid therapy Prostate disease High cholesterol Injury of back Syncope History of weight loss Former smoker COPD (chronic obstructive pulmonary disease) On home oxygen therapy Shortness of breath on exertion Chronic cough History of stress test Cardiology follow-up encounter Chest pain No pertinent family history 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 Nocturnal hypoxemia Chronic hypoxemic respiratory failure Bronchiectasis Prostate CA CAD (coronary artery disease) HLD (hyperlipidemia) Benign essential HTN Home Medications ?Medication ?Instructions ?Recorded ?Last Taken ?Type aspirin 81 mg chewable tablet 81 mg PO QPM heart health 12/29/14 03/24/23 History nitroglycerin 0.4 mg sublingual 0.4 mg sublingual Q5M PRN Chest 12/29/14 1 Week Ago History tablet Pain ~07/02/20 lorazepam 1 mg tablet (Ativan) 0.5 - 1 mg PO TID PRN Anxiety 07/09/20 03/25/23 History polyethylene glycol 3350 17 gram 17 g PO DAILY PRN Constipation 07/09/20 03/24/23 History oral powder packet (Miralax) acetaminophen 325 mg tablet 650 mg PO Q4H PRN Pain 08/13/20 03/24/23 History (Tylenol) oxycodone 5 mg tablet 5 mg PO Q6H PRN PAIN AND BREATHING 02/05/22 09/28/23 History fluticasone propionate 230 2 puff inhalation BID 08/07/22 03/25/23 History mcg-salmeterol 21 mcg/actuation HFA inhaler (Advair HFA) atorvastatin 40 mg tablet 40 mg PO QHS cholesterol 03/25/23 03/24/23 History duloxetine 30 mg capsule,delayed 30 mg PO QPM DEPRESSION 03/25/23 03/24/23 History release tamsulosin 0.4 mg capsule 0.4 mg PO QPM BLADDER/ PROSTATE 03/25/23 03/25/23 History tiotropium bromide 2.5 2 puff inhalation DAILY copd 03/25/23 03/24/23 History mcg/actuation mist for inhalation (Spiriva Respimat) apixaban 5 mg (74 tabs) tablets in 5 mg PO BID #74 tabs 03/27/23 Unknown Rx a dose pack ([place] REO DVT-PE Treat 30D Start) doxycycline monohydrate 100 mg 100 mg PO BID 09/28/23 09/28/23 History capsule ezetimibe 10 mg tablet 10 mg PO DAILY 09/28/23 Unknown History fluticasone fur. 100 mcg-umeclid 1 ea inhalation DAILY 09/28/23 Unknown History 62.5 mcg-vilant 25 mcg inhalat.powder (Trelegy Ellipta) guaifenesin 600 mg tablet, 1,200 mg PO Q12H PRN cough 09/28/23 Unknown History extended release 12 hr (Mucinex) levalbuterol tartrate 45 2 puff inhalation Q4H PRN PRN 09/28/23 Unknown History mcg/actuation aerosol inhaler wheezing prednisone 10 mg tablet 10 mg PO DAILY 09/28/23 Unknown History Allergy/AdvReac Type Severity Reaction Status Date / Time isosorbide (From Imdur) Allergy Other-patient Verified 09/28/23 11:07 blacks out Family History Other No pertinent family history Surgical History Hx of CABG Hx of CABG Hx of heart artery stent Hx of pneumonectomy Hx of transurethral resection of prostate No pertinent past surgical history Social History Smoking Status: Former smoker Tobacco: How many years used: 45 Electronic Cigarette Use: not used how long ago did patient quit smokin, second hand exposure: Yes alcohol intake: never substance use type: does not use ROS ROS Narrative General: Denies fever/chills HENT: Denies headache, denies stuffy nose, denies sore throat EYES: Denies changes in vision Resp: Increased rattling cough, increased shortness of breath Cardiac: Denies chest pain GI: Denies abdominal pain, no diarrhea, dark stool, denies nausea/vomiting : Denies changes in urination Extremity: Has a chronic left ankle injury otherwise no swelling MSK: Denies weakness Neuro: Denies any numbness/tingling Heme: Denies any bleeding or bruising Skin: Denies rashes Psychiatric: No complaints voiced Vital Signs Vital Signs Vital Signs: 09/28/23 11:03 09/28/23 11:08 09/28/23 12:07 Temperature 97.8 F 97.8 F Temperature Source Oral Oral Pulse Rate 96 80 Respiratory Rate 28 H 16 Respiratory Effort Normal Non-Labored Respiratory Depth Normal Respiratory Pattern Normal Blood Pressure 161/75 H 136/76 H Blood Pressure Mean 103 96 Pulse Ox 100 99 Oxygen Delivery Method Nasal Cannula Nasal Cannula Nasal Cannula Oxygen Flow Rate (L/min) 3 3 3 09/28/23 13:00 09/28/23 13:20 09/28/23 13:26 Temperature 97.8 F Temperature Source Oral Pulse Rate 85 Respiratory Rate 18 Respiratory Effort Respiratory Depth Respiratory Pattern Blood Pressure 142/83 H Blood Pressure Mean 102 Pulse Ox 98 80 91 Oxygen Delivery Method Nasal Cannula Nasal Cannula Nasal Cannula Oxygen Flow Rate (L/min) 3 3 3 09/28/23 13:57 09/28/23 14:00 Temperature 97.8 F 97.9 F Temperature Source Oral Pulse Rate 82 84 Respiratory Rate 18 18 Respiratory Effort Respiratory Depth Respiratory Pattern Blood Pressure 178/90 H 167/79 H Blood Pressure Mean 119 108 Pulse Ox 97 99 Oxygen Delivery Method Nasal Cannula Oxygen Flow Rate (L/min) 3 Weight Weight: 82.9 kg Body Mass Index (BMI) 25.4 Physical Exam Narrative General: Alert, oriented, no apparent distress HEENT: Atraumatic, normocephalic Eyes: Anicteric, normal conjunctiva, extraocular movements grossly intact Neck: Supple Respiratory: Some wheezes on left, overall diminished bilaterally Cardiovascular: Regular rate and rhythm GI: Soft, nontender, nondistended Extremities: No edema Musculoskeletal: Moving all extremities Neuro: No overt focal neurological deficits Skin: No rashes appreciated Psych: Cooperative Results Lab / Micro Data 09/28/23 11:20 09/28/23 11:20 Labs: Laboratory Results - last 24 hr 09/28/23 11:20: WBC 9.0, RBC 4.03 L, Hgb 10.9 L, Hct 35.6 L, MCV 88.3, MCH 27.0, MCHC 30.6 L, RDW Std Deviation 51.7 H, RDW Coeff of Estelita 15.9 H, Plt Count 206, MPV 9.0, Immature Gran % (Auto) 0.600, Neut % (Auto) 91.9 H, Lymph % (Auto) 2.9 L, [place] % (Auto) 4.4, Eos % (Auto) 0.1, Baso % (Auto) 0.1, Absolute Neuts (auto) 8.3 H, Absolute Lymphs (auto) 0.26 L, Nucleated RBC % 0, Sodium 140, Potassium 3.7, Chloride 108 H, Carbon Dioxide 29.0, Anion Gap 3 L, BUN 18, Creatinine 0.93, Estim Creat Clear Calc 66.35, Est GFR (MDRD) Af Amer 101, Est GFR (MDRD) Non-Af 83, BUN/Creatinine Ratio 19.4, Glucose 170 H, Calcium 8.6, Total Bilirubin 0.40, AST 20, ALT 19, Alkaline Phosphatase 80, Troponin I High Sens 30, B-Natriuretic Peptide 68.8, Total Protein 6.3 L, Albumin 2.8 L, Globulin 3.5, Albumin/Globulin Ratio 0.8 L, Lipase 38 09/28/23 11:53: Lactic Acid 1.9, Blood Type O NEGATIVE, Antibody Screen NEGATIVE 09/28/23 13:06: Urine Color Yellow, Urine Clarity Clear, Urine pH 6.0, Ur Specific [place] 1.015, Urine Protein 15 H, Urine Glucose (UA) Normal, Urine Ketones Negative, Urine Occult Blood 10 H, Urine Nitrite Negative, Urine Bilirubin Negative, Urine Urobilinogen Normal, Ur Leukocyte Esterase Negative, Urine RBC 0-5 SEEN, Urine WBC 0 SEEN, Ur Squamous Epith Cells 0 SEEN, Urine Bacteria 0 SEEN, Urine Mucus 0 SEEN Micro: Microbiology 09/28/23 13:20 Stool Stool Occult Blood (YAMINI) - Final Occult Blood Positive Imaging Radiology Impression Chest X-Ray 09/28/23 13:30 IMPRESSION: Pleural parenchymal changes at the lung bases worse on the left side which have progressed. Pleural calcified plaques in the right hemithorax. Findings suggestive of a 2.6 cm x 2 cm nodule in the lateral aspect of the left lower lobe. Correlation with a CT scan is recommended. Electronically Signed: Fernando Sidhu MD at 13:55 EDT , Assessment & Plan Assessment/Plan (1) Fecal occult blood test positive: (2) COPD with acute exacerbation: (3) Chronic hypoxemic respiratory failure: (4) CAD (coronary artery disease): QUALIFIERS: Associated angina: angina presence unspecified (5) Benign essential HTN: (6) Abnormal chest CT: (7) Lung mass: (8) Squamous cell carcinoma of left lung: (9) Tobacco dependence in remission: PLAN: Plan # Acute on chronic hypoxia/AECOPD on 3 to 4 L home O2/known left lower lobe squamous cell carcinoma -Patient became hypoxic to 70% on his home 3 L when laid down -Chest x-ray with pleural-parenchymal changes at lung base worse on left side which is progressed and pleural calcified plaques in right hemithorax with a left lower lobe nodule -CT of the chest obtained to better characterize -After discussion with patient he has had increasing shortness of breath and cough, meets criteria for COPD exacerbation, pt already on eliquis and feel COPD exacerbation explains sx, low suspicion for PE -Azithromycin, Mucinex -Nebs -Will check COVID and respiratory panel -Incentive spirometry -Chronically on 10 of prednisone, IV steroids for COPD exacerbation -Of note patient follows with Dr. Ball for his lung cancer and had radiation several years ago and is presently not on treatment #Concern for GIB -Hemoglobin 10.9 which is similar to previous however dark stool in ED on rectal exam and FOBT positive -GI contacted and recommended CTA abdomen -CT abdomen ordered and result pending -PPI IV -GI consult -Typed and crossed -H&H every 6 -Iron panel and reticulocyte index -Hold Eliquis #Chronic BPH with obstruction and history of prostate cancer -Continue home medications -Prostate cancer with hormone therapy for 2 years in remission #Hx DVT/PT -Seen in March of this year -Patient has been on Eliquis -Hold Eliquis given concern for GI bleed #Hx CAD -On asa and eliquis -Holding eliquis -Continue statin -Continue Zetia # History of depression and anxiety -Continue Cymbalta -Takes ativan prn #Chronic pain -Takes oxycodone prn #DVT ppx: SCDs Etta Edmondson MD Time spent in the patient's overall evaluation,decision-making process, review of diagnostic data, adjustment of management, discussion with other providers, nursing nursing and ancillary staff involved in patient's care documentation, 58 minutes Charges/Coding Visit Charges Inpatient E&M: 62057 Init Hosp L2
[2023-09-28] MEDS: Ipratropium/Albuterol Sulfate 3 ML AMPUL.NEB INHALATION ×3 (15:42→23:18)
[2023-09-28 16:29] LABS: Hemoglobin 11.7 g/dL (13.0-16.5)
--- NOTE | 2023-09-28 17:24 | EX.PCM.CON.G ---
HPI Consult Data Date of Consult: 09/28/23 HPI Narrative Reason for Consultation: GI bleed HPI Narrative: OSWALDO MENDIOLA, is a 83 M who presents with worsening shortness of breath and lower GI bleeding. Patient had been getting more short of breath and it was some question of possible pneumonia. He was given doxycycline to take twice a day approximately 3 days ago. He took the medicine for 4 days and his shortness of breath did not improve so he came into the hospital today. He also said that he had multiple episodes of lower GI bleeding. He was started on anticoagulation with Eliquis after developing acute left lower lobe PE and bilateral lower extremity DVTs approximately 6 months ago. He has a history of lung cancer with suspected recurrence on the recent PET/CT imaging from 03-03-23. Imaging shows progression of defined viable neoplastic disease. Lung cancer was diagnosed in January 2020. Currently follows with Dr. Ball, further information obtained from his most recent office note from 02/16/2023. Patient was found to have a left lower lobe nodule in January 2020. He had CT-guided biopsy done at that time at [facility] and developed pneumothorax postbiopsy requiring transfer to [facility] for further management. PET scan at [facility] was concerning for malignancy and patient had a left thoracoscopy with conversion to mini thoracotomy with wedge resection of the left lower lobe lung mass in 01/2020. 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 Patient completed radiation therapy to the left lower lung in 04/2020, has had no further therapy since that time. He had a repeat CT scan of the chest today and it shows some possible new abnormalities in the right lower lobe. Respiratory swabs are pending for commune acquired pneumonia and COVID. He did have a echocardiogram within the last 6 months that had shown ejection fraction of 60% with no wall motion abnormalities. He is on aspirin and Plavix at home along with Eliquis. He also takes oxycodone and Ativan as needed for anxiety. He is satting 95% on 3 L oxygen which she wears at baseline. [facility] Medical History Depression Myocardial infarct Coronary artery disease Pulmonary neoplasm Pulmonary embolus Wears glasses Wears dentures Cancer Anxiety Abrasion History of steroid therapy Prostate disease High cholesterol Injury of back Syncope History of weight loss Former smoker COPD (chronic obstructive pulmonary disease) On home oxygen therapy Shortness of breath on exertion Chronic cough History of stress test Cardiology follow-up encounter Chest pain No pertinent family history 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 Nocturnal hypoxemia Chronic hypoxemic respiratory failure Bronchiectasis Prostate CA CAD (coronary artery disease) HLD (hyperlipidemia) Benign essential HTN Home Medications ?Medication ?Instructions ?Recorded ?Last Taken ?Type aspirin 81 mg chewable tablet 81 mg PO QPM heart health 12/29/14 03/24/23 History nitroglycerin 0.4 mg sublingual 0.4 mg sublingual Q5M PRN Chest 12/29/14 1 Week Ago History tablet Pain ~07/02/20 lorazepam 1 mg tablet (Ativan) 0.5 - 1 mg PO TID PRN Anxiety 07/09/20 03/25/23 History polyethylene glycol 3350 17 gram 17 g PO DAILY PRN Constipation 07/09/20 03/24/23 History oral powder packet (Miralax) acetaminophen 325 mg tablet 650 mg PO Q4H PRN Pain 08/13/20 03/24/23 History (Tylenol) oxycodone 5 mg tablet 5 mg PO Q6H PRN PAIN AND BREATHING 02/05/22 09/28/23 History fluticasone propionate 230 2 puff inhalation BID 08/07/22 03/25/23 History mcg-salmeterol 21 mcg/actuation HFA inhaler (Advair HFA) atorvastatin 40 mg tablet 40 mg PO QHS cholesterol 03/25/23 03/24/23 History duloxetine 30 mg capsule,delayed 30 mg PO QPM DEPRESSION 03/25/23 03/24/23 History release tamsulosin 0.4 mg capsule 0.4 mg PO QPM BLADDER/ PROSTATE 03/25/23 03/25/23 History tiotropium bromide 2.5 2 puff inhalation DAILY copd 03/25/23 03/24/23 History mcg/actuation mist for inhalation (Spiriva Respimat) apixaban 5 mg (74 tabs) tablets in 5 mg PO BID #74 tabs 03/27/23 Unknown Rx a dose pack ([employer] DVT-PE Treat 30D Start) doxycycline monohydrate 100 mg 100 mg PO BID antibiotic 09/28/23 09/28/23 History capsule ezetimibe 10 mg tablet 10 mg PO DAILY 09/28/23 Unknown History fluticasone fur. 100 mcg-umeclid 1 ea inhalation DAILY 09/28/23 Unknown History 62.5 mcg-vilant 25 mcg inhalat.powder (Trelegy Ellipta) guaifenesin 600 mg tablet, 1,200 mg PO Q12H PRN cough 09/28/23 Unknown History extended release 12 hr (Mucinex) levalbuterol tartrate 45 2 puff inhalation Q4H PRN PRN 09/28/23 Unknown History mcg/actuation aerosol inhaler wheezing prednisone 10 mg tablet 10 mg PO DAILY 09/28/23 Unknown History Allergy/AdvReac Type Severity Reaction Status Date / Time isosorbide (From Imdur) Allergy Other-patient Verified 09/28/23 11:07 blacks out Family History Other No pertinent family history Surgical History Hx of CABG Hx of heart artery stent Hx of transurethral resection of prostate Hx of pneumonectomy Hx of CABG No pertinent past surgical history Social History (Updated 09/28/23 @ 15:00 by Niecy Andrew) Smoking Status: Former smoker Tobacco: How many years used: 45 Electronic Cigarette Use: not used how long ago did patient quit smokin, second hand exposure: Yes alcohol intake: never substance use type: does not use ROS ROS Narrative General: Denies fever/chills HENT: Denies headache, denies stuffy nose, denies sore throat EYES: Denies changes in vision Resp: Increased rattling cough, increased shortness of breath Cardiac: Denies chest pain GI: Denies abdominal pain, no diarrhea, dark stool, denies nausea/vomiting : Denies changes in urination Extremity: Has a chronic left ankle injury otherwise no swelling MSK: Denies weakness Neuro: Denies any numbness/tingling Heme: Denies any bleeding or bruising Skin: Denies rashes Psychiatric: No complaints voiced Physical Exam Narrative General: Alert, oriented, no apparent distress HEENT: Atraumatic, normocephalic Eyes: Anicteric, normal conjunctiva, extraocular movements grossly intact Neck: Supple Respiratory: Some wheezes on left, overall diminished bilaterally Cardiovascular: Regular rate and rhythm GI: Soft, nontender, nondistended Extremities: No edema Musculoskeletal: Moving all extremities Neuro: No overt focal neurological deficits Skin: No rashes appreciated Psych: Cooperative Lab / Micro Data 09/28/23 16:01 09/28/23 11:20 Labs: Laboratory Results - last 24 hr 09/28/23 11:20: WBC 9.0, RBC 4.03 L, Hgb 10.9 L, Hct 35.6 L, MCV 88.3, MCH 27.0, MCHC 30.6 L, RDW Std Deviation 51.7 H, RDW Coeff of Estelita 15.9 H, Plt Count 206, MPV 9.0, Immature Gran % (Auto) 0.600, Neut % (Auto) 91.9 H, Lymph % (Auto) 2.9 L, [place] % (Auto) 4.4, Eos % (Auto) 0.1, Baso % (Auto) 0.1, Absolute Neuts (auto) 8.3 H, Absolute Lymphs (auto) 0.26 L, Nucleated RBC % 0, Sodium 140, Potassium 3.7, Chloride 108 H, Carbon Dioxide 29.0, Anion Gap 3 L, BUN 18, Creatinine 0.93, Estim Creat Clear Calc 66.35, Est GFR (MDRD) Af Amer 101, Est GFR (MDRD) Non-Af 83, BUN/Creatinine Ratio 19.4, Glucose 170 H, Calcium 8.6, Total Bilirubin 0.40, AST 20, ALT 19, Alkaline Phosphatase 80, Troponin I High Sens 30, B-Natriuretic Peptide 68.8, Total Protein 6.3 L, Albumin 2.8 L, Globulin 3.5, Albumin/Globulin Ratio 0.8 L, Lipase 38 09/28/23 11:53: Lactic Acid 1.9, Blood Type O NEGATIVE, Antibody Screen NEGATIVE 09/28/23 13:06: Urine Color Yellow, Urine Clarity Clear, Urine pH 6.0, Ur Specific [place] 1.015, Urine Protein 15 H, Urine Glucose (UA) Normal, Urine Ketones Negative, Urine Occult Blood 10 H, Urine Nitrite Negative, Urine Bilirubin Negative, Urine Urobilinogen Normal, Ur Leukocyte Esterase Negative, Urine RBC 0-5 SEEN, Urine WBC 0 SEEN, Ur Squamous Epith Cells 0 SEEN, Urine Bacteria 0 SEEN, Urine Mucus 0 SEEN 09/28/23 16:01: Hgb 11.7 L Micro: Microbiology 09/28/23 13:20 Stool Stool Occult Blood (YAMINI) - Final Occult Blood Positive Imaging Radiology Impression Chest X-Ray 09/28/23 13:30 IMPRESSION: Pleural parenchymal changes at the lung bases worse on the left side which have progressed. Pleural calcified plaques in the right hemithorax. Findings suggestive of a 2.6 cm x 2 cm nodule in the lateral aspect of the left lower lobe. Correlation with a CT scan is recommended. Electronically Signed: Fernando Sidhu MD at 13:55 EDT , Abdomen/Pelvis CTA 09/28/23 13:46 IMPRESSION: Diffuse fatty infiltration of the liver. Small gallstones are seen along the dependent portion of the gallbladder lumen. Infrarenal abdominal aortic aneurysm. This is stable. Prostatic enlargement with indentation of the bladder base. Sigmoid diverticulosis. Electronically Signed: Fernando Sidhu MD at 14:44 EDT , Chest CT 09/28/23 14:03 IMPRESSION: Stable cavitating lesion along the pleural surface of the left lower lobe with fluid within the cavitation. Stable spiculated density in the left upper lobe with increasing nodular densities in the right lower lobe. Metastatic deposits should be ruled out. Right calcified pleural plaques. Electronically Signed: Fernando Sidhu MD at 14:38 EDT , Assessment & Plan Assessment/Plan (1) Pulmonary embolus: (2) Pulmonary neoplasm: (3) Major hemoptysis: PLAN: Plan Patient is an 82-year-old male who presented to [facility] ED with lower GI bleed, shortness of breath and dyspnea. Lower GI bleed. Differential diagnosis does include upper GI bleed with rapid transit, lower GI bleed secondary to ischemic colitis, diverticular bleed, hemorrhoidal disease. Recommendation upper and lower endoscopy to evaluate his upper and lower GI tract. History of acute left lower lobe PE, off left lower lobe pulmonary artery: CT chest individually reviewed. Patient tachycardic, dyspnea at rest and tachypneic in the morning. Patient has lower GI bleed. I talk with Dr. Ball is okay with holding his anticoagulation for now. History of lung cancer with suspected recurrence on the recent PET/CT imaging from 03-03-23. Imaging shows progression of defined viable neoplastic disease. Lung cancer was diagnosed in January 2020. Currently follows with Dr. Ball. Patient was found to have a left lower lobe nodule in January 2020. He had CT-guided biopsy done at that time at [facility] and developed pneumothorax postbiopsy requiring transfer to [facility] for further management. PET scan at [facility] was concerning for malignancy and patient had a left thoracoscopy with conversion to mini thoracotomy with wedge resection of the left lower lobe lung mass in 01/2020. 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 Patient completed radiation therapy to the left lower lung in 04/2020, has had no further therapy since that time. New lung lesions possibly inflammatory lesions secondary to pneumonia or recurrent cancer. Workup in progress. DNR CCA, DNI Charges/Coding Visit Charges Inpatient E&M: 25205 Init Hosp L3
[2023-09-28 17:48] LABS: Platelet Count 228 K/mm3 (150-450); RET-HE 28.4 pg (30-35)
[2023-09-28 18:27] LABS: Ferritin 63 ng/mL (26-388); Iron 26 ug/dL (65-175); Iron Binding Capacity,Total 281 ug/dL (250-450); PERCENT IRON SATURATION 9.3 % (15.0-55.0)
[2023-09-28 18:44] LABS: BNP,B-Type NATRIURETIC PEPTIDE 103.1 pg/mL (0-100)
[2023-09-28] MEDS: 0.9% Saline Lock 10 ML Syringe IV (18:56)
[2023-09-28] MEDS: Metoclopramide 10 MG/2 ML Vial 5 MG IV (18:57)
[2023-09-28] MEDS: Bisacodyl 5 MG Tablet 20 MG PO (18:57)
[2023-09-28] MEDS: Electrolyte Solution/Peg's 4000 ML PO (18:57)
[2023-09-28 19:06] LABS: Allen Test Positive; Base Excess -1 mmol/L (-2 to +2); Bicarbonate 23.8 mmol/L (22-26); Blood Gas Specimen Type ART; Mode Not entered; O2 Delivery Device Cannula; PO2 97 mmHG (75-100); SITE L Radial; SO2 98 % (95-99); Total Carbon Dioxide 25 mmol/L; pCO2 37.8 mmHg (35-45); pH 7.41 (7.35-7.45)
[2023-09-28 21:11] LABS: Hemoglobin 10.5 g/dL (13.0-16.5)
[2023-09-29] VITALS (18 sets, daily range): BP systolic 102–165; BP diastolic 49–93; PULSE 78–100; RESP 16–26; TEMP 36.2–36.6; O2SAT 96–100; BMI 24.8
--- NOTE | 2023-09-29 | PCM.HOSP.N ---
Hospitalist Note COVID PCR came back positive. CAT scan reviewed did not show any obvious GGO. However, shows metastatic deposits, chronic left cavitary lesion. Will add remdesivir. Patient already on methylprednisolone for steroids.
[2023-09-29 00:39] LABS: Hematocrit 36.7 % (40-54); Hemoglobin 11.3 g/dL (13.0-16.5)
[2023-09-29] MEDS: 0.9% Normal Saline (250mL Bag) 250 ML 15 ML IV (01:01)
[2023-09-29] MEDS: 0.9% Saline Lock 10 ML Syringe IV ×2 (01:01→21:40)
[2023-09-29] MEDS: Remdesivir 200 MG in 0.9% Normal Saline (250mL Bag) 210 ML 250 MG IV (01:01)
[2023-09-29 01:02] LABS: Alkaline Phosphatase 78 U/L (45-117)
[2023-09-29] MEDS: Ipratropium/Albuterol Sulfate 3 ML AMPUL.NEB INHALATION ×3 (02:59→23:17)
[2023-09-29 04:21] LABS: Absolute Lymphocyte Count 0.14 X10^3/uL (0.83-4.51); Absolute Neutrophil Count 6.2 X10^3/uL (2.0-7.7); Basophil# 0.01 X10^3/uL; Basophil% 0.2 % (0-1); Hematocrit 35.3 % (40-54); Hemoglobin 10.6 g/dL (13.0-16.5); Lymphocyte # 0.14 X10^3/ul (0.83-4.51); Lymphocyte % 2.2 % (19-41); Mean Corpuscular Hgb 26.5 pg (27.0-32.0); Mean Corpuscular Volume 88.3 fL (80-94); Mean Platelet Vol. 8.9 fl (6.2-12.0); Monocyte# 0.09 X10^3/uL; Monocyte% 1.4 % (0-10); NRBC Flagged by Analyzer 0 % (0-5); Neutrophil # 6.15 X10^3/uL (2.7-7.7); Neutrophil % 95.7 % (47-70); POSITIVE DIFFERENTIAL YES; Platelet Count 190 K/mm3 (150-450); RBC Distribution Width CV 15.9 % (11.6-14.6); RBC Distribution Width SD 51.8 fl (35.1-43.9); White Blood Count 6.4 K/mm3 (4.4-11.0)
[2023-09-29 04:31] LABS: International Normalized Ratio 1.1; Prothrombin Time (Protime)PT. 13.8 SECONDS (11.7-14.9)
[2023-09-29 04:32] LABS: Partial Thromboplast Time 36.2 Seconds (24.1-36.2)
[2023-09-29 04:39] LABS: ALB/GLOB Ratio 0.9 RATIO (0.9-2.4); AST(SGOT) 20 U/L (15-37); Alanine Aminotransfer ALT/SGPT 15 U/L (16-61); Albumin, Serum 2.9 g/dL (3.2-5.0); Alkaline Phosphatase 69 U/L (45-117); Anion Gap 5 (5-15); BUN 15 mg/dL (7-18); BUN/Creat Ratio 18.5 RATIO (10-20); Calcium,Total 8.4 mg/dL (8.5-10.1); Chloride 107 mmol/L (98-107); Creatinine, Serum 0.81 mg/dL (0.70-1.30); EST Glomerular Filtration Rate 97 mL/min (>60); Est Glom Filt Rate - Afr Amer 117 mL/min (>60); Estimated Creatinine Clearance 76.18 ml/min; Globulin 3.4 g/dL (2.2-4.2); Glucose 179 mg/dL (74-106); Magnesium 1.8 mg/dL (1.6-2.6); Potassium 3.3 mmol/L (3.5-5.1); Protein, Total 6.3 g/dL (6.4-8.2); Sodium Level 141 mmol/L (136-145)
[2023-09-29] MEDS: Azithromycin 250 MG Tablet 500 MG PO (08:58)
[2023-09-29] MEDS: Pantoprazole Sodium 40 MG in 0.9% Normal Saline (100mL MB+) 100 ML 330 MG IV ×2 (08:58→21:13)
[2023-09-29] MEDS: LORazepam 0.5 MG Tablet PO (11:47)
--- NOTE | 2023-09-29 14:42 | CASEMGMT ---
GILMAR DIAZ Assessment: GILMAR DIAZ to room to meet with pt for initial transition planning/care coordination assessment. GILMAR DIAZ introduced self and role at [facility]. Pt voices understanding and consents to assessment. Pt is A&Ox4 and answers all questions appropriately at this time. Care providers, pharmacy, and demographics verified. Admitting Dx: Hypoxia, GI Bleed, COVID PCP: Dr Cummins Specialists: Dr Cherry, cardiology; Dr Catalan, urology; Dr Poly Calvillo, pulmonology; Dr Freeman, vascular; Dr Ball, oncology Palliative: Pt is active w[phone]. E-mail sent to [phone] to notify them of pt's admission. Preferred Pharmacy: [facility] Insurance: [employer] A/B, [employer] Prescription Benefit: yes LNOK: Serenity Corley, Living Arrangements: Pt live with his in a single story home with one step to enter. ADLs/IADLs: Pt reports he is I in ADL's and manages his own medications. does most home mgnt tasks. Transportation: Pt drives self and denies concerns with transportation. also drives. DME: Pt has a cane, walker, shower chair, grab bars, comfort height commode, W/C, nebulizer, pulse ox, and O2 at home through [employer]. He has a concentrator and POC, which is in his hospital room for pt to go home on. Pt states he wears 4L continuous. Per Michelle @ [facility], current orders are 2 l/m continuously. HHC/SNF: Pt denies previous HHC or SNF stays. Pt goal: Home with the continuation of Palliative care Plan: Home with support and continuation of Palliative Care. Pt states that he does not need or want additional resources/ therapy at this time including skilled HHC, OP Tx, or SNF. Pt states that Palliative care once per month is enough for me. 6-Click is 20. No therapy ordered at this time. CM to follow for any increase in O2 needs. Sana BOUDREAUX RN, CM
--- NOTE | 2023-09-29 14:48 | PCM.PROGNOTE ---
Subjective Subjective Patient seen and examined. He was admitted with a complaint of shortness of breath and dark stools. He tested positive for covid. He still complains of shortness of breath. He hasnt had any more dark stools or rectal bleeding overnight. He denies any cough, chest pain, palpitations, dizziness, nausea, vomiting or any other symptoms. He is on 4L of oxygen. Objective Data Objective Data Vital Signs: Vital Signs Temp Pulse Resp BP Pulse Ox O2 Del Method O2 Flow Rate 97.8 F 95 26 H 153/79 H 96 Nasal Cannula 4 09/29/23 08:56 09/29/23 11:08 09/29/23 11:49 09/29/23 08:56 09/29/23 11:49 09/29/23 11:49 09/29/23 11:49 Oxygen Flow Rate (L/min) 4 Oxygen Delivery Method Nasal Cannula Weight: 178 lb 2.136 oz Body Mass Index (BMI) 24.8 Intake & Output: Intake and Output for Last 24 Hours 09/27/23 09/28/23 09/29/23 23:59 23:59 23:59 Intake Total 1397.5 / 1397.5 377.25 / 377.25 Balance 1397.5 / 1397.5 377.25 / 377.25 Lab / Micro Data 09/29/23 04:00 09/29/23 04:00 Labs: Laboratory Results - last 24 hr 09/28/23 11:20: Iron 26 L, TIBC 281, Iron Saturation 9.3 L, Ferritin 63, B-Natriuretic Peptide 103.1 H 09/28/23 16:01: Hgb 11.7 L, Retic Count 1.70 H, Immature Retic Fraction 25.90 H, Retic Hgb Equivalent 28.4 L 09/28/23 20:55: Hgb 10.5 L 09/28/23 23:59: Hgb 11.3 L, Hct 36.7 L, Alkaline Phosphatase 78 09/29/23 04:00: WBC 6.4, RBC 4.00 L, Hgb 10.6 L, Hct 35.3 L, MCV 88.3, MCH 26.5 L, MCHC 30.0 L, RDW Std Deviation 51.8 H, RDW Coeff of Estelita 15.9 H, Plt Count 190, MPV 8.9, Immature Gran % (Auto) 0.500, Neut % (Auto) 95.7 H, Lymph % (Auto) 2.2 L, Coamo % (Auto) 1.4, Eos % (Auto) 0.0, Baso % (Auto) 0.2, Absolute Neuts (auto) 6.2, Absolute Lymphs (auto) 0.14 L, Nucleated RBC % 0, PT 13.8, INR 1.1, APTT 36.2, Sodium 141, Potassium 3.3 L, Chloride 107, Carbon Dioxide 29.0, Anion Gap 5, BUN 15, Creatinine 0.81, Estim Creat Clear Calc 76.18, Est GFR (MDRD) Af Amer 117, Est GFR (MDRD) Non-Af 97, BUN/Creatinine Ratio 18.5, Glucose 179 H, Calcium 8.4 L, Magnesium 1.8, Total Bilirubin 0.40, AST 20, ALT 15 L, Alkaline Phosphatase 69, Total Protein 6.3 L, Albumin 2.9 L, Globulin 3.4, Albumin/Globulin Ratio 0.9 Micro: Microbiology 09/28/23 23:00 Stool Stool Lactoferrin - Final 09/28/23 23:00 Stool Enteric Bacteriology - Final 09/28/23 23:00 Stool Clostridioides difficile (PCR) - Final 09/28/23 18:41 Sputum, Expectorated/Coughed Gram Stain - Final 09/28/23 18:41 Sputum, Expectorated/Coughed Respiratory Culture - Preliminary Streptococcus group B 09/28/23 15:43 Mucosa - Nasopharyngeal SARS-CoV-2, Influenza & RSV (PCR) - Final SARS-CoV-2 (COVID 19 PCR) 09/28/23 15:43 Mucosa - Nasopharyngeal Respiratory Panel (PCR) - Final 09/28/23 13:20 Stool Stool Occult Blood (YAMINI) - Final Occult Blood Positive ABG Data ABG results: ABG 09/28/23 19:01 Specimen Type ART Sample Site L Radial pH 7.41 Bicarbonate Actual 23.8 Total CO2 25 Base Excess -1 O2 Saturation 98 O2 % 4.0 ABG pCO2 37.8 ABG pO2 97 Lavell Test Positive O2 Delivery Device Cannula Vent Mode Not entered Physical Exam Const alert, oriented x3 and no apparent distress General Appearance: cooperative and well developed HEENT normocephalic, head/scalp atraumatic, moist oral mucous membranes and oropharynx normal Eyes PERRL and EOMs intact bilaterally Neck no lymphadenopathy, supple and no JVD Lymph Lymphatic: no lymphadenopathy noted and no lymphedema noted Resp Resp Narrative: Mildly diminished breath sounds bibasilarly. No wheezes or crackles. On 4L of oxygen. Cardio regular rate, regular rhythm, S1 normal heart sound, S2 normal heart sound and no murmurs GI normal to inspection, nondistended, normoactive bowel sounds, soft to palpation, non-tender and non-distended Extremity normal capillary refill, no clubbing, cyanosis or edema and no calf tenderness General Extremity: no tenderness to palpation of joints or extremities Skin General Skin Exam: no breakdown Neuro CN's II-XII intact bilaterally, no focal motor deficits, no sensory deficits noted and deep tendon reflexes 2+ bilaterally Motor Exam: strength 5/5 throughout and general weakness Psych thought process normal and cooperative Appearance: appropriate Assessment & Plan Assessment/Plan (1) Fecal occult blood test positive: (2) COVID: (3) Pneumonia: PLAN: Plan #Acute hypoxia due to COVID and community acquired pneumonia Patient remains on 4 L of oxygen. COVID test was positive and strep group B is also positive. Sputum culture. Has known squamous cell carcinoma of the left lower lobe. Chest x-ray on admission showed pleural parenchymal changes at left lung base which had progressed and pleural calcified plaques in the right hemithorax with left lower lobe nodule. Ceftriaxone and azithromycin. Also on IV Solu-Medrol. Breathing treatments with bronchodilators. Will switch Solu-Medrol to Decadron on account of positive COVID test #COVID-19 pneumonia: As above if shortness of breath persist will consider adding on dysuria. #Community-acquired pneumonia due to Streptococcus pneumonia: As above #Hypokalemia: Potassium is 3.3. Replace and trend. #GI bleed Complain of dark stools and stool for occult blood was positive. Hemoglobin is 10.6 today. Eliquis on hold. GI on board and for EGD and colonoscopy today. On IV pantoprazole. #BPH: With history of obstruction. Also has a history of prostate cancer. Currently in remission. On hormone therapy. On flomax. 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 On Eliquis. Eliquis currently on hold due to concern for GI bleed. #History of CAD: On aspirin. Aspirin currently on hold. On aspirin and Zetia #History of depression and anxiety: On Cymbalta. Ativan as needed #History of chronic pain: On oxycodone as needed #DVT prophylaxis: SCDs Charges/Coding Visit Charges Inpatient E&M: 21529 Subs Hosp L2
--- NOTE | 2023-09-29 15:00 | EGD_PTH ---
PATIENT: OSWALDO MENDIOLA LOC: [facility] U#:[id number] AGE/SX: 83/M ROOM: [facility] RE09/28/[address]: Dr. Elizabeth Santamaria MD : [id number] BED: 1 DIS: 09/30/2023 SPEC #: [id number] RECD: 09/29/23 18:27 STATUS: HERON SOSA #: [id number] EDMOND: 09/29/23 15:[address]: Garcia Moreno DEPT: SURGICAL PATHOLOGY RECD BY: Corrie Che ENTERED: 09/30/23 08:11 SP TYPE: EGD BIOPSY OTHR DR: MD Dr. Elizabeth Bartlett MD Dr. Paige Pierce, MD Tissues: A - Esophagus, NOS B - Cecum, NOS C - Cecum, NOS D - Sigmoid colon biopsy Procedures: Special Stain Group I Surgery Specimen Level IV GMS Stain (control) Comments: @ Ordering doctor for SUIV edited from to @ gabbi CHESTER at 09/30/23 09 @ Submitting doctor edited from to @ gabbi CHESTER at 09/30/23900 HEADER OPERATION: Colonoscopy with polypectomy and Argon plasma coagulation PRE-OP DIAGNOSIS: GI bleed TISSUE SUBMITTED: A- Proximal esophagus biopsy, B- Cecal polyp 1, C- Cecal polyp 2, D- Sigmoid polyp MICROSCOPIC DIAGNOSIS A. Proximal esophagus, biopsy: Focal acute inflammation. Fungal organisms consistent with Wendy species. See comment. B. Cecal polyp #1, biopsy: Fragments of tubular adenoma. C. Cecal polyp #2, biopsy: Fragments of tubular adenoma. D. Sigmoid colon polyp, biopsy: Tubular adenoma. EVANGELINA/ 10/01/2023 COMMENT A. GMS stain with matched control was used in the evaluation of this case. MICROSCOPIC DESCRIPTION Slides are reviewed. GROSS DESCRIPTION A. Received in fixative is one container labeled with the patient's name and designated Proximal esophagus biopsy. The specimen consists of multiple irregular fragments of light darling soft tissue that in aggregate measure 1.0 x 0.6 x 0.1 cm. The specimen is totally submitted in one cassette. B. Received in fixative is one container labeled with the patient's name and designated Cecal polyp. The specimen consists of multiple irregular fragments of light darling soft tissue that in aggregate measure 2.0 x 0.5 x 0.1 cm. The specimen is totally submitted in one cassette. C. Received in fixative is one container labeled with the patient's name and designated Cecal polyp #2. The specimen consists of multiple irregular fragments of light darling soft tissue that in aggregate measure 1.0 x 0.8 x 0.1 cm. The specimen is totally submitted in one cassette. D. Received in fixative is one container labeled with the patient's name and designated Sigmoid polyp. The specimen consists of multiple irregular fragments of light darling soft tissue that in aggregate measure 1.0 x 0.6 x 0.2 cm. The specimen is totally submitted in one cassette. EVANGELINA/ 09/30/2023 TC:2 CPT:[id number]
[2023-09-29] MEDS: Lactated Ringers 1,000 ML 15 ML IV (15:47)
--- NOTE | 2023-09-29 15:52 | PCM.PRE.AN2 ---
ASA Classification* ASA Classification ASA Classification: 3 and E Assessment & Plan Anesthesia* Anesthesia Assessment Anesthesia Assessment: Discussed sedation and/or anesthesia options, risks, benefits, and alternatives with patient/parents/legal guardian/POA. Questions invited. The patient/parents/legal guardian/POA seems to understand and agrees to proceed with anesthesia plan. Reviewed the physical assessment, medical history, allergy history and patient home medications list prior to surgery/procedure/anesthetic and documented any changes. Performed airway and anesthesia risk assessments. Anesthesia Type Anesthesia Type: MAC History Source History Obtained from:: Patient and Chart Anesthesia Focused Assessment* Temperature: 97.4 F Pulse Rate: 89 Blood Pressure: 165/54 Respiratory Rate: 24 Pulse Ox: 100 Oxygen Delivery Method: Nasal Cannula Airway Assessment Mouth opens: >3 cm Mallampati Score: I Teeth Condition: Dentures (Dentures are out) and Full Neck Range of motion (ROM): Limited ROM (Slightly decreased extension) Focused Labs Anesthesia Preop lab: CBC WBC 6.4 K/mm3 (4.4-11.0) 09/29/23 04:00 RBC 4.00 M/mm3 (4.6-6.2) L 09/29/23 04:00 Hgb 10.6 g/dL (13.0-16.5) L 09/29/23 04:00 Hct 35.3 % (40-54) L 09/29/23 04:00 Plt Count 190 K/mm3 (150-450) 09/29/23 04:00 CHEMISTRY Potassium 3.3 mmol/L (3.5-5.1) L 09/29/23 04:00 Sodium 141 mmol/L (136-145) 09/29/23 04:00 Magnesium 1.8 mg/dL (1.6-2.6) 09/29/23 04:00 BUN 15 mg/dL (7-18) 09/29/23 04:00 Creatinine 0.81 mg/dL (0.70-1.30) 09/29/23 04:00 Glucose 179 mg/dL (74-106) H 09/29/23 04:00 COAG PT 13.8 SECONDS (11.7-14.9) 09/29/23 04:00 Pre-Assessment Diagnosis/Proposed Procedure Planned Operative Procedure(s): Esophagogastroduodenoscopy and colonoscopy Anesthesia History 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 When Was Last Pacemaker Check QUESTION #4 FULL TEXT: You/Your Family Experience fever (hyperthermia) with Anesthesia Last Oral Intake Last Oral intake: Last Oral Intake NPO since 00:00 09/29/23 04:40 Meds taken in AM with sips of water? Meds patient instructed to take am of surgery Any additional information?: Yes NPO since: 04:00 (Patient finished his prep at 4 AM.) PONV PONV - warehouse order puller: PONV - warehouse order puller Female HX of Motion Sickness HX of N/V After Surgery Non-Smoker Duration of Surgery greater than 60 minutes Number of Risk Factors PONV Score Height & Weight Height & Weight: Anesthesia: Height & Weight Height 5 ft 11 in 09/28/23 16:18 Weight: 80.8 kg 09/28/23 16:18 Body Mass Index (BMI) 24.8 09/29/23 04:40 Respiratory Assessment Respiratory Assessment - warehouse order puller: Respiratory Tract Infection Hx - warehouse order puller Hx Respiratory Tract Infection No 09/29/23 04:40 STOP Sleep Apnea STOP Sleep Apnea - warehouse order puller: STOP Sleep Apnea - warehouse order puller Hx Hypertension Yes: no meds 9 months 09/28/23 15:04 Hx Sleep Apnea No 09/28/23 15:04 CPAP No 09/28/23 15:04 BIPAP No 09/28/23 15:04 Do you snore loudly (louder No 09/28/23 15:04 than talking or can be heard Do you often feel tired/ Yes 09/28/23 15:04 fatigued/ sleepy during daytime? Has anyone observed you stop No 09/28/23 15:04 breathing during sleep? STOP Results Positive 09/28/23 15:04 QUESTION #5 FULL TEXT : Do you snore loudly (louder than talking or can be heard through closed doors)? 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 Specify any problems Hx of Preganancy in last 3 N/A 09/28/23 15:04 Months Nurse Filling Out Transfusion DSLOAN 09/28/23 15:04 & Questions: Date: 09/28/23 09/28/23 15:04 Time: 15:05 09/28/23 15:04 Patient unable to answer at this time (ie. confused, unrespo /Reproduction History /Reproductive History - warehouse order puller: /Reproductive Hx- warehouse order puller Hx Now Gestational Age (in weeks): EDC: Hx Hx Para Hx Section SAB No 08/13/20 08:35 Active Medications Active Medications: Current Medications Generic Name Dose Route Start Last Admin Trade Name Freq PRN Reason Stop Dose Admin Acetaminophen 650 mg 09/28/23 14:52 Acetaminophen 325 Mg Tablet PO Q6H PRN PRN Pain 1-10 Or Fever >100.7 Albuterol Sulfate 2.5 mg 09/28/23 14:52 Albuterol 2.5 Mg/3 Ml Vial.Neb. INHALATION Q2H PRN PRN SOB &/OR WHEEZING Albuterol/Ipratropium 3 ml 09/28/23 14:52 09/29/23 11:07 Ipratropium/Albuterol Sulfate 3 Ml Ampul.Neb INHALATION 3 ml Q4H.RT YAZAN Administration Aspirin 81 mg 09/28/23 21:00 09/28/23 22:48 Aspirin 81 Mg Tab.Chew PO Not Given QPM YAZAN Atorvastatin Calcium 40 mg 09/28/23 22:00 09/28/23 22:48 Atorvastatin Calcium 40 Mg Tablet PO Not Given QHS YAZAN Azithromycin 500 mg 09/29/23 10:00 09/29/23 08:58 Azithromycin 250 Mg Tablet PO 10/03/23 10:01 500 mg Q24 YAZAN Administration Duloxetine HCl 30 mg 09/28/23 21:00 09/28/23 22:48 Duloxetine Hcl 30 Mg Capsule PO Not Given QPM YAZAN Ezetimibe 10 mg 09/29/23 10:00 09/29/23 11:13 Ezetimibe 10 Mg Tablet PO Not Given DAILY YAZAN Guaifenesin 1,200 mg 09/28/23 22:00 09/29/23 11:13 Guaifenesin 1,200 Mg Tablet PO Not Given BID YAZAN Pantoprazole Sodium 40 mg/ 110 mls @ 330 mls/hr 09/28/23 22:00 09/29/23 09:20 Sodium Chloride IV Infused Q12 YAZAN Infusion Sodium Chloride 250 mls @ 15 mls/hr 09/28/23 14:59 IV .[id number] PRN Additional IVPB Infusion Sodium Chloride 250 mls @ 15 mls/hr 09/28/23 14:59 09/29/23 02:10 IV 0 mls/hr .[id number] PRN Infusion Saline Flush Remdesivir 100 mg/ Sodium 250 mls @ 250 mls/hr 09/29/23 22:00 Chloride IV 10/02/23 22:59 QHS YAZAN Protocol Lactated Ringer's 1,000 mls @ 15 mls/hr 09/29/23 15:45 09/29/23 15:47 IV 15 mls/hr .Q48H YAZAN Administration Lorazepam 0.5 mg 09/28/23 14:52 09/29/23 11:47 Lorazepam 0.5 Mg Tablet PO 0.5 mg TID PRN Administration Anxiety Melatonin 3 mg 09/28/23 14:52 Melatonin 3 Mg Tablet PO QHS PRN PRN INSOMNIA Methylprednisolone 40 mg 09/28/23 22:00 09/29/23 14:57 Methylprednisolone 40 Mg/Ml Vial IV 40 mg Q8 YAZAN Administration Metoclopramide HCl 5 mg 09/28/23 18:00 09/29/23 11:48 Metoclopramide 10 Mg/2 Ml Vial IV Not Given Q6 YAZAN Ondansetron HCl 4 mg 09/28/23 14:52 Ondansetron 4 Mg/2 Ml Vial IV Q8H PRN PRN NAUSEA/VOMITING Oxycodone HCl 5 mg 09/28/23 14:52 Oxycodone 5 Mg Tablet PO Q4H PRN PRN Pain Score 4-10 Senna/Docusate Sodium 2 tablet 09/28/23 14:52 Senna/Docusate Sodium 1 Tablet PO BID PRN PRN Constipation Sodium Chloride 10 - 40 ml 09/28/23 14:59 09/29/23 01:01 0.9% Saline Lock 10 Ml Syringe IV 10 ml UD PRN Administration SALINE FLUSH Tamsulosin HCl 0.4 mg 09/28/23 21:00 09/28/23 22:48 Tamsulosin Hcl 0.4 Mg Capsule PO Not Given QPM YAZAN PFSH Medical History Depression Myocardial infarct Coronary artery disease Pulmonary neoplasm Pulmonary embolus Wears glasses Wears dentures Cancer Anxiety Abrasion History of steroid therapy Prostate disease High cholesterol Injury of back Syncope History of weight loss Former smoker COPD (chronic obstructive pulmonary disease) On home oxygen therapy Shortness of breath on exertion Chronic cough History of stress test Cardiology follow-up encounter Chest pain No pertinent family history 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 Nocturnal hypoxemia Chronic hypoxemic respiratory failure Bronchiectasis Prostate CA CAD (coronary artery disease) HLD (hyperlipidemia) Benign essential HTN Home Medications ?Medication ?Instructions ?Recorded ?Last Taken ?Type aspirin 81 mg chewable tablet 81 mg PO QPM heart health 12/29/14 03/24/23 History nitroglycerin 0.4 mg sublingual 0.4 mg sublingual Q5M PRN Chest 12/29/14 1 Week Ago History tablet Pain ~07/02/20 lorazepam 1 mg tablet (Ativan) 0.5 - 1 mg PO TID PRN Anxiety 07/09/20 03/25/23 History polyethylene glycol 3350 17 gram 17 g PO DAILY PRN Constipation 07/09/20 03/24/23 History oral powder packet (Miralax) acetaminophen 325 mg tablet 650 mg PO Q4H PRN Pain 08/13/20 03/24/23 History (Tylenol) oxycodone 5 mg tablet 5 mg PO Q6H PRN PAIN AND BREATHING 02/05/22 09/28/23 History fluticasone propionate 230 2 puff inhalation BID 08/07/22 03/25/23 History mcg-salmeterol 21 mcg/actuation HFA inhaler (Advair HFA) atorvastatin 40 mg tablet 40 mg PO QHS cholesterol 03/25/23 03/24/23 History duloxetine 30 mg capsule,delayed 30 mg PO QPM DEPRESSION 03/25/23 03/24/23 History release tamsulosin 0.4 mg capsule 0.4 mg PO QPM BLADDER/ PROSTATE 03/25/23 03/25/23 History tiotropium bromide 2.5 2 puff inhalation DAILY copd 03/25/23 03/24/23 History mcg/actuation mist for inhalation (Spiriva Respimat) apixaban 5 mg (74 tabs) tablets in 5 mg PO BID #74 tabs 03/27/23 Unknown Rx a dose pack ([employer] DVT-PE Treat 30D Start) doxycycline monohydrate 100 mg 100 mg PO BID antibiotic 09/28/23 09/28/23 History capsule ezetimibe 10 mg tablet 10 mg PO DAILY 09/28/23 Unknown History fluticasone fur. 100 mcg-umeclid 1 ea inhalation DAILY 09/28/23 Unknown History 62.5 mcg-vilant 25 mcg inhalat.powder (Trelegy Ellipta) guaifenesin 600 mg tablet, 1,200 mg PO Q12H PRN cough 09/28/23 Unknown History extended release 12 hr (Mucinex) levalbuterol tartrate 45 2 puff inhalation Q4H PRN PRN 09/28/23 Unknown History mcg/actuation aerosol inhaler wheezing prednisone 10 mg tablet 10 mg PO DAILY 09/28/23 Unknown History Allergy/AdvReac Type Severity Reaction Status Date / Time isosorbide (From Imdur) Allergy Other-patient Verified 09/28/23 11:07 blacks out Family History Other No pertinent family history Surgical History Hx of CABG Hx of heart artery stent Hx of transurethral resection of prostate Hx of pneumonectomy Hx of CABG No pertinent past surgical history Social History Smoking Status: Former smoker Tobacco: How many years used: 45 Electronic Cigarette Use: not used how long ago did patient quit smokin, second hand exposure: Yes alcohol intake: never substance use type: does not use Review of Systems (Anesthesia) ROS Narrative System reviewed and no additional complaints, except as documented.
--- NOTE | 2023-09-29 17:03 | PCM.POST.ANE ---
Anesthesia: Postop Eval I Current Vital Signs Temperature: 97.6 F Pulse Rate: 78 Blood Pressure: 102/49 Respiratory Rate: 16 Pulse Ox: 100 Oxygen Delivery Method: Nasal Cannula Oxygen Flow Rate (L/min): 4 Assessment Airway patent: Yes Spontaneous unlabored respirations: Yes Mental status: Awake and Calm nausea: No Vomiting: No Anesthesia Complication: No Fluid Hydration Crystalloid volume administer (ml): 600 Total IV fluid infused: 600 Progress Note Anesthesia document: Postop Eval 1 completed: Yes
--- NOTE | 2023-09-29 17:05 | OP.CCLET_ITS ---
09/29/2023 Dillan Cummins [address] [place] [address] Re : Upper GI endoscopy procedure for Hal Corley Dear Dr. Cummins This procedure was performed on Friday, September 29, 2023. My impressions and recommendations are as follows: Impressions : - Esophageal plaques were found, consistent with candidiasis. Biopsied. - No gross lesions in the entire stomach. - Two bleeding angiodysplastic lesions in the duodenum. Treated with a heater probe. Recommendations : - Return patient to hospital [facility] for ongoing care. - Resume regular diet. - Continue present medications. - Await pathology results. - Diflucan (fluconazole) 100 mg PO daily for 2 weeks. My findings are described in the full procedure note, which is enclosed. If I can be of further assistance, please feel free to contact me at . Sincerely, Garcia Moreno, 09/29/2023 5:04:50 PM This report has been signed electronically.
--- NOTE | 2023-09-29 17:05 | OP.EGD_ITS ---
Patient Name: Hal Corley Procedure Date: 09/29/2023 4:01 PM Date of : 1940 Age: 83 Procedure: Upper GI endoscopy Indications: Iron deficiency anemia, Hematochezia Providers: Garcia Moreno DO Medicines: Monitored Anesthesia Care Patient Profile: This is an 83 year old male. Refer to note in patient chart for documentation of history and physical. Patient has symptoms of acute right upper quadrant abdominal pain. Complications: No immediate complications. Procedure: Pre-Anesthesia Assessment: - Prior to the procedure, a History and Physical was performed, and patient medications and allergies were reviewed. The patient is competent. The risks and benefits of the procedure and the sedation options and risks were discussed with the patient. All questions were answered and informed consent was obtained. Patient identification and proposed procedure were verified by the physician in the pre-procedure area. Mental Status Examination: alert and oriented. Airway Examination: normal oropharyngeal airway and neck mobility. Respiratory Examination: clear to auscultation. CV Examination: normal. Prophylactic Antibiotics: The patient does not require prophylactic antibiotics. Prior Anticoagulants: The patient has taken no anticoagulant or antiplatelet agents except for NSAID medication. ASA Grade Assessment: II - A patient with mild systemic disease. After reviewing the risks and benefits, the patient was deemed in satisfactory condition to undergo the procedure. The anesthesia plan was to use monitored anesthesia care (MAC). Immediately prior to administration of medications, the patient was re-assessed for adequacy to receive sedatives. The heart rate, respiratory rate, oxygen saturations, blood pressure, adequacy of pulmonary ventilation, and response to care were monitored throughout the procedure. The physical status of the patient was re-assessed after the procedure. After obtaining informed consent, the endoscope was passed under direct vision. Throughout the procedure, the patient's blood pressure, pulse, and oxygen saturations were monitored continuously. The Colonoscope was introduced through the mouth, and advanced to the second part of duodenum. The upper GI endoscopy was accomplished without difficulty. The patient tolerated the procedure well. Scope In: 4:22:58 PM Scope Out: 4:28:11 PM Total Procedure Duration Time 0 hours 5 minutes 13 seconds Findings: Patchy, white plaques were found in the upper third of the esophagus. Biopsies were taken with a cold forceps for histology. Verification of patient identification for the specimen was done. Estimated blood loss was minimal. No gross lesions were noted in the entire examined stomach. Two 5 mm angiodysplastic lesions with bleeding were found in the duodenal bulb. Coagulation for hemostasis using heater probe was successful. Estimated blood loss was minimal. Impression: - Esophageal plaques were found, consistent with candidiasis. Biopsied. - No gross lesions in the entire stomach. - Two bleeding angiodysplastic lesions in the duodenum. Treated with a heater probe. Recommendation: - Return patient to [facility] for ongoing care. - Resume regular diet. - Continue present medications. - Await pathology results. - Diflucan (fluconazole) 100 mg PO daily for 2 weeks. Procedure Code(s): --- Professional --- 50021, 59, Esophagogastroduodenoscopy, flexible, transoral; with control of bleeding, any method 74375, 51, Esophagogastroduodenoscopy, flexible, transoral; with biopsy, single or multiple CPT copyright 2021 [employer]. All rights reserved. The codes documented in this report are preliminary and upon shafting worker review may be revised to meet current compliance requirements. Garcia Moreno DO 09/29/2023 5:04:50 PM This report has been signed electronically. Number of Addenda: 0 Note Initiated On: 09/29/2023 4:01 PM
--- NOTE | 2023-09-29 17:11 | OP.COLON_ITS ---
Patient Name: Hal Corley Procedure Date: 09/29/2023 4:28 PM Date of : 1940 Age: 83 Procedure: Colonoscopy Indications: Hematochezia Providers: Garcia Moreno DO Medicines: Monitored Anesthesia Care Patient Profile: This is an 83 year old male. Refer to note in patient chart for documentation of history and physical. Patient has symptoms of acute right upper quadrant abdominal pain. Last Colonoscopy: date unknown. Unable to locate last colonoscopy report. Complications: No immediate complications. Procedure: Pre-Anesthesia Assessment: - Prior to the procedure, a History and Physical was performed, and patient medications and allergies were reviewed. The patient is competent. The risks and benefits of the procedure and the sedation options and risks were discussed with the patient. All questions were answered and informed consent was obtained. Patient identification and proposed procedure were verified by the physician in the pre-procedure area. Mental Status Examination: alert and oriented. Airway Examination: normal oropharyngeal airway and neck mobility. Respiratory Examination: clear to auscultation. CV Examination: normal. Prophylactic Antibiotics: The patient does not require prophylactic antibiotics. Prior Anticoagulants: The patient has taken no anticoagulant or antiplatelet agents except for NSAID medication. ASA Grade Assessment: II - A patient with mild systemic disease. After reviewing the risks and benefits, the patient was deemed in satisfactory condition to undergo the procedure. The anesthesia plan was to use monitored anesthesia care (MAC). Immediately prior to administration of medications, the patient was re-assessed for adequacy to receive sedatives. The heart rate, respiratory rate, oxygen saturations, blood pressure, adequacy of pulmonary ventilation, and response to care were monitored throughout the procedure. The physical status of the patient was re-assessed after the procedure. After I obtained informed consent, the scope was passed under direct vision. Throughout the procedure, the patient's blood pressure, pulse, and oxygen saturations were monitored continuously. The Colonoscope was introduced through the anus and advanced to the cecum, identified by appendiceal orifice and ileocecal valve. The colonoscopy was performed without difficulty. The patient tolerated the procedure well. The quality of the bowel preparation was fair. The ileocecal valve, appendiceal orifice, and rectum were photographed. Scope In: 4:30:10 PM Scope Withdrawal Time 0 hours 13 minutes 26 seconds Scope Out: 4:49:10 PM Total Procedure Duration Time 0 hours 19 minutes 0 seconds Findings: The perianal and digital rectal examinations were normal. Multiple large angiodysplastic lesions with bleeding were found in the rectum. Coagulation for hemostasis using argon plasma at 0.4 liters/minute and 30 govea was successful. Estimated blood loss was minimal. Internal hemorrhoids were found during retroflexion. The hemorrhoids were Grade II (internal hemorrhoids that prolapse but reduce spontaneously). Multiple small and large-mouthed diverticula were found in the recto-sigmoid colon, sigmoid colon and descending colon. Stool was found in the rectum, in the recto-sigmoid colon, in the sigmoid colon and in the cecum. An 8 mm polyp was found in the sigmoid colon. The polyp was sessile. The polyp was removed with a hot snare. Resection and retrieval were complete. Verification of patient identification for the specimen was done. Estimated blood loss was minimal. A 7 mm polyp was found in the cecum. The polyp was sessile. The polyp was removed with a cold snare. Resection and retrieval were complete. Verification of patient identification for the specimen was done. Estimated blood loss was minimal. A 12 mm polyp was found in the cecum. The polyp was sessile. The polyp was removed with a hot snare. Resection and retrieval were complete. Verification of patient identification for the specimen was done. Estimated blood loss was minimal. Impression: - Preparation of the colon was fair. - Multiple bleeding colonic angiodysplastic lesions. Treated with argon plasma coagulation (APC). - Internal hemorrhoids. - Diverticulosis in the recto-sigmoid colon, in the sigmoid colon and in the descending colon. - Stool in the rectum, in the recto-sigmoid colon, in the sigmoid colon and in the cecum. - One 8 mm polyp in the sigmoid colon, removed with a hot snare. Resected and retrieved. - One 7 mm polyp in the cecum, removed with a cold snare. Resected and retrieved. - One 12 mm polyp in the cecum, removed with a hot snare. Resected and retrieved. Recommendation: - Repeat colonoscopy in 1 year for surveillance. - Continue present medications. Procedure Code(s): --- Professional --- 01323, 59, Colonoscopy, flexible; with control of bleeding, any method 39866, Colonoscopy, flexible; with removal of tumor(s), polyp(s), or other lesion(s) by snare technique CPT copyright 2021 [employer]. All rights reserved. The codes documented in this report are preliminary and upon cooker process cheese review may be revised to meet current compliance requirements. Garcia Moreno DO 09/29/2023 5:10:55 PM This report has been signed electronically. Number of Addenda: 0 Note Initiated On: 09/29/2023 4:28 PM
--- NOTE | 2023-09-29 17:11 | OP.CCLET_ITS ---
09/29/2023 Dillan Cummins [id number] [place] [address] Re : Colonoscopy procedure for Hal Corley Dear Dr. Cummins This procedure was performed on Friday, September 29, 2023. My impressions and recommendations are as follows: Impressions : - Preparation of the colon was fair. - Multiple bleeding colonic angiodysplastic lesions. Treated with argon plasma coagulation (APC). - Internal hemorrhoids. - Diverticulosis in the recto-sigmoid colon, in the sigmoid colon and in the descending colon. - Stool in the rectum, in the recto-sigmoid colon, in the sigmoid colon and in the cecum. - One 8 mm polyp in the sigmoid colon, removed with a hot snare. Resected and retrieved. - One 7 mm polyp in the cecum, removed with a cold snare. Resected and retrieved. - One 12 mm polyp in the cecum, removed with a hot snare. Resected and retrieved. Recommendations : - Repeat colonoscopy in 1 year for surveillance. - Continue present medications. My findings are described in the full procedure note, which is enclosed. If I can be of further assistance, please feel free to contact me at . Sincerely, Garcia Moreno, 09/29/2023 5:10:55 PM This report has been signed electronically.
[2023-09-29] MEDS: Atorvastatin Calcium 40 MG Tablet PO (21:24)
[2023-09-29] MEDS: Aspirin 81 MG TAB.CHEW PO (21:24)
[2023-09-29] MEDS: guaiFENesin 1,200 MG Tablet 1200 MG PO (21:24)
[2023-09-29] MEDS: Tamsulosin HCl 0.4 MG Capsule PO (21:24)
[2023-09-29] MEDS: DULoxetine Hcl 30 MG Capsule PO (21:24)
[2023-09-29] MEDS: Remdesivir 100 MG in 0.9% Normal Saline (250mL Bag) 230 ML 250 MG IV (21:40)
--- NOTE | 2023-09-29 22:21 | PCM.POSTANE2 ---
Anesthesia Postop Eval I Sum Postop Eval Completion status Anesthesia document: Postop Eval 1 completed: Yes Anesthesia Postop Eval I Summary Anesthesia Postop Eval I Summary: Anesthesia Postop Eval I: Assessment Summary Airway patent Yes 09/29/23 17:04 [email or web address] Spontaneous unlabored Yes 09/29/23 17:04 [email or web address] respirations Mental status Awake,Calm 09/29/23 17:04 [email or web address] nausea No 09/29/23 17:04 [email or web address] Vomiting No 09/29/23 17:04 [email or web address] Anesthesia Postop Eval I: Fluid Summary Crystalloid volume administer 600 09/29/23 17:04 [email or web address] (ml) Colloids volume administered ( ml) Blood Product volume administered (ml) Total IV fluid infused 600 09/29/23 17:04 [email or web address] Anesthesia Postop Eval I: Summary Notes Anesthesia Complication No 09/29/23 17:04 [email or web address] Anesthesia Complication Comment: Post-operative progress note Anesthesia: Postop Eval II Evaluation Mental status: Awake and Calm Pain Level: 0 nausea: No Vomiting: No Complications Anesthesia Complication: No
[2023-09-30] VITALS (7 sets, daily range): BP systolic 137–147; BP diastolic 75–80; PULSE 61–97; RESP 18–24; TEMP 36.1–36.6; O2SAT 90–100
[2023-09-30] MEDS: Metoclopramide 10 MG/2 ML Vial 5 MG IV ×2 (00:23→06:00)
[2023-09-30] MEDS: Ipratropium/Albuterol Sulfate 3 ML AMPUL.NEB INHALATION ×2 (03:31→07:13)
[2023-09-30 06:15] LABS: Absolute Lymphocyte Count 0.19 X10^3/uL (0.83-4.51); Absolute Neutrophil Count 6.2 X10^3/uL (2.0-7.7); Hematocrit 32.8 % (40-54); Lymphocyte # 0.19 X10^3/ul (0.83-4.51); Lymphocyte % 2.8 % (19-41); Mean Corp Hgb Conc 30.5 g/dL (32-36); Mean Corpuscular Volume 88.4 fL (80-94); Mean Platelet Vol. 8.8 fl (6.2-12.0); Monocyte# 0.22 X10^3/uL; Monocyte% 3.3 % (0-10); NRBC Flagged by Analyzer 0 % (0-5); Neutrophil # 6.22 X10^3/uL (2.7-7.7); Neutrophil % 93.2 % (47-70); POSITIVE DIFFERENTIAL YES; Platelet Count 187 K/mm3 (150-450); RBC Distribution Width SD 52.4 fl (35.1-43.9); Red Blood Count 3.71 M/mm3 (4.6-6.2); White Blood Count 6.7 K/mm3 (4.4-11.0)
[2023-09-30 07:48] LABS: Magnesium 2.2 mg/dL (1.6-2.6)
[2023-09-30 07:53] LABS: Anion Gap 6 (5-15); BUN 16 mg/dL (7-18); BUN/Creat Ratio 21.1 RATIO (10-20); Calcium,Total 8.2 mg/dL (8.5-10.1); Chloride 108 mmol/L (98-107); Creatinine, Serum 0.76 mg/dL (0.70-1.30); EST Glomerular Filtration Rate 105 mL/min (>60); Est Glom Filt Rate - Afr Amer 127 mL/min (>60); Estimated Creatinine Clearance 77.13 ml/min; Glucose 157 mg/dL (74-106); Sodium Level 144 mmol/L (136-145)
[2023-09-30] MEDS: guaiFENesin 1,200 MG Tablet 1200 MG PO (09:57)
[2023-09-30] MEDS: Pantoprazole Sodium 40 MG in 0.9% Normal Saline (100mL MB+) 100 ML 330 MG IV (09:57)
[2023-09-30] MEDS: Ezetimibe 10 MG Tablet PO (09:57)
[2023-09-30] MEDS: Azithromycin 250 MG Tablet 500 MG PO (09:57)
--- NOTE | 2023-09-30 12:27 | DS.PCM_ITS ---
Providers Date of Admission: 09/28/23 Date of Discharge: 09/30/23 Primary Care Physician: Dr. Dillan Cummins MD Consultations 09/28/23 14:52 Consult: Gastroenterology Routine Consulting Provider: [facility] Reason for Consult: dark stool, fobt+ EMERGENT Consult: No MD Notified: Yes Date Notified: 09/28/23 Time Notified: 14:55 Method of Notification: Text Reason For Visit: HYPOXIA, GI BLEED Diagnosis Discharge Diagnosis (1) Fecal occult blood test positive: Status: Acute Code(s): R19.5 - Other fecal abnormalities (2) COVID: Status: Acute Code(s): U07.1 - COVID-19 (3) Pneumonia: Status: Acute Code(s): J18.9 - Pneumonia, unspecified organism Plan #Acute hypoxia due to COVID and community acquired pneumonia * Patient remains on 4 L of oxygen. COVID test was positive and strep group B is also positive. Sputum culture. * Has known squamous cell carcinoma of the left lower lobe. Chest x-ray on admission showed pleural parenchymal changes at left lung base which had progressed and pleural calcified plaques in the right hemithorax with left lower lobe nodule. * Ceftriaxone and azithromycin. Also on IV Solu-Medrol. * Breathing treatments with bronchodilators. Will switch Solu-Medrol to Decadron on account of positive COVID test #COVID-19 pneumonia: As above if shortness of breath persist will consider adding on dysuria. #Community-acquired pneumonia due to Streptococcus pneumonia: As above #Hypokalemia: Potassium is 3.3. Replace and trend. #GI bleed * Complain of dark stools and stool for occult blood was positive. * Hemoglobin is 10.6 today. Eliquis on hold. * GI on board and for EGD and colonoscopy today. * On IV pantoprazole. * #BPH: With history of obstruction. Also has a history of prostate cancer. Currently in remission. On hormone therapy. On flomax. 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 On Eliquis. Eliquis currently on hold due to concern for GI bleed. #History of CAD: On aspirin. Aspirin currently on hold. On aspirin and Zetia #History of depression and anxiety: On Cymbalta. Ativan as needed #History of chronic pain: On oxycodone as needed #DVT prophylaxis: SCDs Medications at Discharge Home Medications aspirin 81 mg chewable tablet 81 mg PO QPM heart health 12/29/14 nitroglycerin 0.4 mg sublingual tablet 0.4 mg sublingual Q5M PRN Chest Pain 12/29/14 lorazepam 1 mg tablet (Ativan) 0.5 - 1 mg PO TID PRN Anxiety 07/09/20 polyethylene glycol 3350 17 gram oral powder packet (Miralax) 17 g PO DAILY PRN Constipation 07/09/20 acetaminophen 325 mg tablet (Tylenol) 650 mg PO Q4H PRN Pain 08/13/20 oxycodone 5 mg tablet 5 mg PO Q6H PRN PAIN AND BREATHING 02/05/22 fluticasone propionate 230 mcg-salmeterol 21 mcg/actuation HFA inhaler (Advair HFA) 2 puff inhalation BID breathing 08/07/22 atorvastatin 40 mg tablet 40 mg PO QHS cholesterol 03/25/23 duloxetine 30 mg capsule,delayed release 30 mg PO QPM DEPRESSION 03/25/23 tamsulosin 0.4 mg capsule 0.4 mg PO QPM BLADDER/ PROSTATE 03/25/23 tiotropium bromide 2.5 mcg/actuation mist for inhalation (Spiriva Respimat) 2 puff inhalation DAILY copd 03/25/23 apixaban 5 mg (74 tabs) tablets in a dose pack (TC3 [employer] DVT-PE Treat 30D Start) 5 mg PO BID blood thinner #74 tabs 03/27/23 ezetimibe 10 mg tablet 10 mg PO DAILY cholesterol 09/28/23 fluticasone fur. 100 mcg-umeclid 62.5 mcg-vilant 25 mcg inhalat.powder (Trelegy Ellipta) 1 ea inhalation DAILY breathing 09/28/23 guaifenesin 600 mg tablet, extended release 12 hr (Mucinex) 1,200 mg PO Q12H PRN cough 09/28/23 levalbuterol tartrate 45 mcg/actuation aerosol inhaler 2 puff inhalation Q4H PRN PRN wheezing 09/28/23 prednisone 10 mg tablet 10 mg PO DAILY inflammation 09/28/23 amoxicillin 875 mg-potassium clavulanate 125 mg tablet 1 tab PO BID #10 tabs 09/30/23 doxycycline monohydrate 100 mg capsule 100 mg PO BID antibiotic #10 caps 09/30/23 fluconazole 100 mg tablet 100 mg PO DAILY #14 tabs 09/30/23 prednisone 20 mg tablet 40 mg (2 x 20 mg) PO DAILY #10 tabs 09/30/23 Hospital Course Operations None Procedures Colonoscopy and EGD Summary of Care Provided Minutes Spent on Discharge: 45 Hospital Course: Patient is an 83-year-old male with a past medical history of DVT and PE, on Eliquis as well as left-sided squamous cell lung cancer and CAD as well as COPD and chronic respiratory failure due to COPD on 3 to 4 L of oxygen was admitted through the ED on 09/28/2023 with a complaint of increased shortness of breath and dark tarry stool for 3 days prior to admission. He was also noted to be hypoxic with a saturation dropping to 70% on 3 L of oxygen which recovered slowly when he sat back up. Chest x-ray showed worsening pleural parenchymal changes of the left lung base and a nodule in the lateral aspect of the left lower lobe. Respiratory panel done was positive for COVID. He was therefore admitted to be managed for hypoxia due to COVID and probable GI bleed. He said his also has similar symptoms she subsequently also tested positive for COVID. Hemoglobin was 10.9. He was admitted and started on remdesivir and IV Solu-Medrol for the COVID. Gastroenterology was consulted and his Eliquis was held. CT of the abdomen and pelvis done showed no evidence of obstruction but showed metastatic deposits and a chronic left cavitary lesion in the lung. Sputum culture came back positive for Streptococcus and Staphylococcus aureus. He had been on IV ceftriaxone and azithromycin. He had EGD which showed esophageal plaques consistent with candidiasis which were biopsied in 2 bleeding angiodysplastic lesions in the duodenum which were treated with heater probe. Colonoscopy done showed multiple bleeding colonic angiodysplastic lesions which was treated with argon plasma coagulation. He also had internal hemorrhoids and diverticulosis in the rectosigmoid, sigmoid and descending colon. He also had 3 polyps in the cecum and sigmoid colon which were removed. Recommendation was for patient to repeat his colonoscopy in 1 year. Patient remained stable and was discharged home on 09/30/2023. He is to follow-up with his primary care doctor within 1 to 2 weeks and follow-up with gastroenterology. He was discharged with a prescription for p.o amoxicillin clavulanic acid 1 tablet twice daily and p.o doxycycline 100 mg twice daily for 5 days to cover the strep and staph pneumonia. Patient seen and examined prior to discharge. He was on his baseline 4 L of oxygen. He had no active complaints and review of systems otherwise negative. Labs and vitals reviewed. Home medication reviewed and reconciled. Of note he was also discharged with p.o. prednisone 40 mg daily for 5 days. He was also discharged on p.o. fluconazole for 2-week course for the esophageal thrush. Physical Exam Const alert, oriented x3 and no apparent distress General Appearance: cooperative, comfortable, well kempt and well developed HEENT normocephalic, head/scalp atraumatic, hearing grossly normal bilaterally, moist oral mucous membranes and oropharynx normal Mouth: oral and palatal mucosa normal Eyes PERRL, EOMs intact bilaterally and conjunctivae normal Neck no lymphadenopathy, supple and no JVD Lymph Lymphatic: no lymphadenopathy noted, no lymphedema noted and lymphedema Resp Resp Narrative: Mildly diminished breath sounds bibasilarly. No wheezes or crackles. On 4L of oxygen which is his baseline. Cardio regular rate, regular rhythm, S1 normal heart sound, S2 normal heart sound and no murmurs GI normal to inspection, nondistended, normoactive bowel sounds, soft to palpation, non-tender and non-distended Extremity normal to inspection, full ROM, normal capillary refill, no clubbing, cyanosis or edema and no calf tenderness General Extremity: no tenderness to palpation of joints or extremities Skin no rashes or lesions noted General Skin Exam: no breakdown Neuro oriented x3, CN's II-XII intact bilaterally, moves all extremities, no focal motor deficits, no sensory deficits noted and deep tendon reflexes 2+ bilaterally Sensorium / Orientation: awake Motor Exam: strength 5/5 throughout and general weakness Psych thought process normal and cooperative Appearance: appropriate Weight / BMI Weight Weight: 178 lb 2.136 oz Body Mass Index (BMI) 24.8 ABG / Lab / Microbiology Data 09/30/23 06:05 09/30/23 06:05 Laboratory: Laboratory Results - last 24 hr 09/30/23 06:05: WBC 6.7, RBC 3.71 L, Hgb 10.0 L, Hct 32.8 L, MCV 88.4, MCH 27.0, MCHC 30.5 L, RDW Std Deviation 52.4 H, RDW Coeff of Estelita 16.0 H, Plt Count 187, MPV 8.8, Immature Gran % (Auto) 0.700, Neut % (Auto) 93.2 H, Lymph % (Auto) 2.8 L, [place] % (Auto) 3.3, Eos % (Auto) 0.0, Baso % (Auto) 0.0, Absolute Neuts (auto) 6.2, Absolute Lymphs (auto) 0.19 L, Nucleated RBC % 0, Sodium 144, Potassium 3.0 L, Chloride 108 H, Carbon Dioxide 30.0, Anion Gap 6, BUN 16, Creatinine 0.76, Estim Creat Clear Calc 77.13, Est GFR (MDRD) Af Amer 127, Est GFR (MDRD) Non-Af 105, BUN/Creatinine Ratio 21.1 H, Glucose 157 H, Calcium 8.2 L, Magnesium 2.2 Microbiology: Microbiology 09/28/23 18:41 Sputum, Expectorated/Coughed Gram Stain - Final 09/28/23 18:41 Sputum, Expectorated/Coughed Respiratory Culture - Preliminary Streptococcus group B Staphylococcus aureus 09/28/23 23:00 Stool Stool Lactoferrin - Final 09/28/23 23:00 Stool Enteric Bacteriology - Final 09/28/23 23:00 Stool Clostridioides difficile (PCR) - Final 09/28/23 15:43 Mucosa - Nasopharyngeal SARS-CoV-2, Influenza & RSV (PCR) - Final SARS-CoV-2 (COVID 19 PCR) 09/28/23 15:43 Mucosa - Nasopharyngeal Respiratory Panel (PCR) - Final 09/28/23 13:20 Stool Stool Occult Blood (YAMINI) - Final Occult Blood Positive D/C Instructions Discharge Diet: Low fat / Low cholesterol Discharge Activity: Return to Normal Activity Weight Bearing Status: Weight bearing as tolerated Call your doctor if you observe: Fever of 101 or Higher, Shortness of breath, Dizziness, Swelling in the ankles and Chest pain Meaningful Use Info Meaningful Use Meaningful Use Diagnoses (Choose all that apply): None applicable Ischemic Stroke Statin Dosing Therapy Reference: STATIN DOSE THERAPY REFERENCE: * Patients > 75 years receive moderate or high dose statin therapy. * Patients 75 years or YOUNGER should receive HIGH intensity statin dose unless contraindicated. You will be required to document reason for non-treatment if statin daily dose does not meet guidelines. HIGH DOSE STATIN THERAPY DAILY Atorvastatin > than or = to 40 mg Rosuvastatin > than or = to 20 mg Amlodipine + Atorvastatin > than or = to 2.5/40 mg Ezetimibe + Simvastatin 10/80 mg Simvastatin 80mg Discharge Plan Admission Admit Date/Time: 09/28/23 14:38 Primary Reason for Your Visit: GI bleed, COVID Attending Provider: Elizabeth Santamaria Primary Care Provider: Dillan Cummins Consulting Providers: Etta Edmondson Instructions Patient Instructions: Coronavirus Disease 2019 (COVID-19): Caring for Yourself or Others, GI Bleeding Ch Discharge Orders/Prescriptions Prescriptions: New amoxicillin-pot clavulanate 875-125 mg tablet 1 tab PO BID Qty: 10 0RF prednisone 20 mg tablet 40 mg PO DAILY Qty: 10 0RF fluconazole 100 mg tablet 100 mg PO DAILY Qty: 14 0RF Continued oxycodone 5 mg tablet 5 mg PO Q6H PRN (Reason: PAIN AND BREATHING) fluticasone propion-salmeterol [Advair HFA] 230-21 mcg/actuation HFA aerosol inhaler 2 puff inhalation BID nitroglycerin 0.4 MG tablet 0.4 mg SL Q5M PRN (Reason: Chest Pain) aspirin 81 MG tablet,chewable 81 mg PO QPM Patient Comments: heart, blood thinner polyethylene glycol 3350 [Miralax] 17 gram Powder In Packet 17 g PO DAILY PRN (Reason: Constipation) lorazepam [Ativan] 1 mg tablet 0.5 - 1 mg PO TID PRN (Reason: Anxiety) acetaminophen [Tylenol] 325 mg Tablet 650 mg PO Q4H PRN (Reason: Pain) atorvastatin 40 mg tablet 40 mg PO QHS duloxetine 30 mg capsule,delayed release(DR/EC) 30 mg PO QPM tamsulosin 0.4 mg capsule 0.4 mg PO QPM Spiriva Respimat 2.5 mcg/actuation mist 2 puff INHALATION DAILY Rx Instructions: USES AROUND NOON Eliquis DVT-PE Treat 30D Start 5 mg (74 tabs) tablets,dose pack 5 mg PO BID Qty: 74 0RF Rx Instructions: 10 mg (2 tabs) twice daily for 7 days and then twice daily to continue. prednisone 10 mg tablet 10 mg PO DAILY ezetimibe 10 mg tablet 10 mg PO DAILY levalbuterol tartrate 45 mcg/actuation HFA aerosol inhaler 2 puff inhalation Q4H PRN PRN (Reason: wheezing) Trelegy Ellipta 100-62.5-25 mcg blister with device 1 ea inhalation DAILY guaifenesin [Mucinex] 600 mg tablet extended release 12hr 1,200 mg PO Q12H PRN (Reason: cough) doxycycline monohydrate 100 mg capsule 100 mg PO BID Qty: 10 0RF Referrals / Follow Up: Dillan Cummins MD [Primary Care Provider] - 10/05/23 2:00 pm Garcia Moreno DO [Med Staff - Active Staff] - 10/20/23 10:30 am Disposition Disposition (needs filled in before D/C Order can be placed): Home, Self Care Charges/Coding Visit Charges Inpatient E&M: 04158 Disch Hosp >30min
[2023-09-30] MEDS: Potassium Chloride Oral Tablet 20 MEQ 60 MEQ PO (13:17)
--- NOTE | 2023-09-30 14:10 | CASEMGMT ---
Patient has order for discharge. Patient maintaining on home oxygen orders. RN CM in to discuss needs at discharge with patient. Patient denies needs or help at discharge. Patient states he is ambulating in the room. Patient had no further questions or concerns.
== END 2023-09-30 15:06 | disposition home or self-care (01) | DRG 177 ==
LOC: ED 12:11 → PCU 14:49
PROVIDERS: Anesthesiology; Internal Medicine Gastroenterology; Admitting Provider Internal Medicine; Emergency Provider Emergency Medicine; PCP Family Medicine; Visit Provider Student in an Organized Health Care Education/Training Program
PROC: 0DJD8ZZ Inspection of Lower Intestinal Tract, Via Natural or Artificial Opening Endoscopic (ICD-10-PCS; CPT 45378; principal; 2023-09-29 14:55)
DX: U07.1 COVID-19 (principal); J12.82 Pneumonia due to coronavirus disease 2019; J15.211 Pneumonia due to Methicillin susceptible Staphylococcus aureus; K55.21 Angiodysplasia of colon with hemorrhage; K31.811 Angiodysplasia of stomach and duodenum with bleeding; J13 Pneumonia due to Streptococcus pneumoniae; K57.31 Diverticulosis of large intestine without perforation or abscess with bleeding; B37.81 Candidal esophagitis; J44.0 Chronic obstructive pulmonary disease with (acute) lower respiratory infection; J96.11 Chronic respiratory failure with hypoxia; J44.1 Chronic obstructive pulmonary disease with (acute) exacerbation; N13.8 Other obstructive and reflux uropathy; I10 Essential (primary) hypertension; F32.A Depression, unspecified; E78.00 Pure hypercholesterolemia, unspecified; I25.119 Atherosclerotic heart disease of native coronary artery with unspecified angina pectoris; K63.5 Polyp of colon; E87.6 Hypokalemia; K64.1 Second degree hemorrhoids; K44.9 Diaphragmatic hernia without obstruction or gangrene; D12.0 Benign neoplasm of cecum; F41.9 Anxiety disorder, unspecified; I25.2 Old myocardial infarction; D12.5 Benign neoplasm of sigmoid colon; N40.1 Benign prostatic hyperplasia with lower urinary tract symptoms; R91.8 Other nonspecific abnormal finding of lung field; Z99.81 Dependence on supplemental oxygen; Z79.01 Long term (current) use of anticoagulants; Z79.51 Long term (current) use of inhaled steroids; Z79.52 Long term (current) use of systemic steroids; Z79.82 Long term (current) use of aspirin; Z79.891 Long term (current) use of opiate analgesic; Z79.899 Other long term (current) drug therapy; Z85.46 Personal history of malignant neoplasm of prostate; Z85.118 Personal history of other malignant neoplasm of bronchus and lung; Z86.711 Personal history of pulmonary embolism; Z86.718 Personal history of other venous thrombosis and embolism; Z87.891 Personal history of nicotine dependence
CPT/HCPCS: 36415; 36600; 71045; 71260; 74174; 80048; 80053; 81001; 82274; 82728; 82803; 83540; 83550; 83605; 83630; 83690; 83735; 83880; 84075; 84484; 85014; 85018; 85025; 85045; 85610; 85730; 86850; 86900; 86901; 87070; 87077; 87177; 87186; 87205; 87209; 87493; 87506; 87631; 87633; 88305; 88312; 93005; 94640; 94668; 99252; 99285; J7030; J7050; J7120; Q9967; A4216; G0463; J0248; J2405

== ENCOUNTER 2023-10-05 17:23 | Inpatient (IN) | payer MEDICARE, BC, SELFPAY ==
[2023-10-05] VITALS (16 sets, daily range): BP systolic 96–116; BP diastolic 52–85; PULSE 92–124; RESP 12–32; TEMP 36.6–36.7; O2SAT 97–100; BMI 26.2; BMI 24.3
--- NOTE | 2023-10-05 18:00 | ED.VIS.FALL ---
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 Nocturnal hypoxemia Chronic hypoxemic respiratory failure Bronchiectasis Prostate CA CAD (coronary artery disease) HLD (hyperlipidemia) Benign essential HTN Home Medications ?Medication ?Instructions ?Recorded ?Last Taken ?Type aspirin 81 mg chewable tablet 81 mg PO QPM heart health 12/29/14 10/05/23 History nitroglycerin 0.4 mg sublingual 0.4 mg sublingual Q5M PRN Chest 12/29/14 1 Week Ago History tablet Pain ~07/02/20 lorazepam 1 mg tablet (Ativan) 0.5 - 1 mg PO TID PRN Anxiety 07/09/20 03/25/23 History polyethylene glycol 3350 17 gram 17 g PO DAILY PRN Constipation 07/09/20 03/24/23 History oral powder packet (Miralax) acetaminophen 325 mg tablet 650 mg PO Q4H PRN Pain 08/13/20 03/24/23 History (Tylenol) oxycodone 5 mg tablet 5 mg PO Q6H PRN PAIN AND BREATHING 02/05/22 10/05/23 History fluticasone propionate 230 2 puff inhalation BID breathing 08/07/22 03/25/23 History mcg-salmeterol 21 mcg/actuation HFA inhaler (Advair HFA) atorvastatin 40 mg tablet 40 mg PO QHS cholesterol 03/25/23 10/04/23 History duloxetine 30 mg capsule,delayed 30 mg PO QPM DEPRESSION 03/25/23 10/04/23 History release tamsulosin 0.4 mg capsule 0.4 mg PO QPM BLADDER/ PROSTATE 03/25/23 10/04/23 History tiotropium bromide 2.5 2 puff inhalation DAILY copd 03/25/23 10/05/23 History mcg/actuation mist for inhalation (Spiriva Respimat) ezetimibe 10 mg tablet 10 mg PO DAILY cholesterol 09/28/23 10/05/23 History guaifenesin 600 mg tablet, 1,200 mg PO Q12H PRN cough 09/28/23 10/05/23 History extended release 12 hr (Mucinex) levalbuterol tartrate 45 2 puff inhalation Q4H PRN PRN 09/28/23 Unknown History mcg/actuation aerosol inhaler wheezing prednisone 10 mg tablet 10 mg PO DAILY inflammation 09/28/23 10/05/23 History amoxicillin 875 mg-potassium 1 tab PO BID #10 tabs 09/30/23 10/05/23 Rx clavulanate 125 mg tablet fluconazole 100 mg tablet 100 mg PO DAILY #14 tabs 09/30/23 10/05/23 Rx prednisone 20 mg tablet 40 mg (2 x 20 mg) PO DAILY #10 tabs 09/30/23 10/05/23 Rx apixaban 5 mg tablet (Eliquis) 5 mg PO Q12H 10/05/23 10/05/23 History Allergy/AdvReac Type Severity Reaction Status Date / Time isosorbide (From Imdur) Allergy Other-patient Verified 10/05/23 17:24 blacks out Family History Other No pertinent family history Surgical History Hx of CABG Hx of heart artery stent Hx of transurethral resection of prostate Hx of pneumonectomy Hx of CABG No pertinent past surgical history Social History Smoking Status: Former smoker Tobacco: How many years used: 45 Electronic Cigarette Use: not used how long ago did patient quit smokin, second hand exposure: Yes alcohol intake: never substance use type: does not use EXAM Physical Exam Const Vital Signs: 10/05/23 17:24 10/05/23 18:25 10/05/23 18:30 Temperature 97.8 F 98.1 F Temperature Source Temporal Temporal Pulse Rate 124 H 108 H 108 H Respiratory Rate 26 H 29 H 24 H Respiratory Effort Respiratory Pattern Tachypnea Blood Pressure 116/85 H 103/78 Blood Pressure Mean 95 86 Pulse Ox 99 97 97 Oxygen Delivery Method Nasal Cannula Bi-pap Oxygen Flow Rate (L/min) 4 Fraction of Inspired Oxygen (FIO2) 30 10/05/23 18:31 10/05/23 18:32 10/05/23 18:36 Temperature Temperature Source Pulse Rate 105 H Respiratory Rate 26 H Respiratory Effort Short of Breath Respiratory Pattern Tachypnea Blood Pressure Blood Pressure Mean Pulse Ox Oxygen Delivery Method Bi-pap Bi-pap Oxygen Flow Rate (L/min) Fraction of Inspired Oxygen (FIO2) 10/05/23 19:00 10/05/23 19:43 10/05/23 20:00 Temperature 98 F 98.1 F Temperature Source Temporal Temporal Pulse Rate 100 92 102 H Respiratory Rate 16 14 20 H Respiratory Effort Respiratory Pattern Normal Blood Pressure 105/73 111/71 Blood Pressure Mean 83 84 Pulse Ox 99 99 100 Oxygen Delivery Method Bi-pap Bi-pap Oxygen Flow Rate (L/min) Fraction of Inspired Oxygen (FIO2) 30 10/05/23 20:42 10/05/23 21:00 Temperature 98.1 F Temperature Source Oral Pulse Rate 112 H Respiratory Rate 29 H Respiratory Effort Respiratory Pattern Blood Pressure 111/68 Blood Pressure Mean 82 Pulse Ox 98 98 Oxygen Delivery Method Nasal Cannula Nasal Cannula Oxygen Flow Rate (L/min) 3 4 Fraction of Inspired Oxygen (FIO2) MDM MDM MDM Narrative Medical decision making narrative: HISTORY OF PRESENT ILLNESS: 83-year-old male reports a fall. States around of breath going to the bathroom. Notes he is on Eliquis. States he was diagnosed with COVID 10 days ago. States he typically wears 2 L at home. He complains of dark stool. Complains of dyspnea on exertion. Notes he was trying to make to the bathroom became too winded and fell down. Not lose consciousness. Denies chest pain. No lower extremity edema noted. Notes compliance with Eliquis. Notes dark stools as well. REVIEW OF SYSTEMS: Pertinent positives: Shortness of breath, dark stool Pertinent negatives: Chest pain PHYSICAL EXAM: Nursing triage notes reviewed, Vital signs reviewed Constitutional: please see mdm HENT: MMM Eyes: Pupils equal round and reactive to light, Extraocular muscles intact Neck: No stridor, no JVD, full neck ROM Lungs: Diminished breath sounds throughout, increased work of breathing, belly breathing, conversational dyspnea. With minimal exertion patient becomes very tachypneic and short of breath. Heart: Regular rate and rhythm, No murmurs, No rubs and No gallops, 2+ distal pulses (radial, femoral, posterior tibial) in all extremities Abdomen: Soft, there is no tenderness, rigidity, rebound or guarding, no obvious peritoneal signs, no palpable pulsatile abdominal masses, no auscultated abdominal bruit : No CVAT Rectal: Performed reference test clerk in room shows dark stool. Sample taken. Extremities: No edema Neuro: No focal neurological deficits, cranial nerves II through XII intact, 5/5 strength in all extremities. Intact sensation to light touch in all extremities, 2+ reflexes bilateral patella tendons. Normal gait. No ataxia. Skin: Pallor noted MEDICAL DECISION MAKING: Chief Complaint: Shortness of breath, dark stool External records reviewed: Reviewed recent ED visit with similar complaints. Reviewed recent inpatient notes. Patient admitted from 09/28/2023 until 09/30/2023 for GI bleed. EGD/colonoscopy reviewed from 09/29/2023. Imaging reviewed: Echocardiogram from March 2023 shows ejection fraction of 60%. Factors affecting care: CAD, COVID-19, COPD, lung mass, tobacco dependence, hyperlipidemia, prostate cancer, hypertension Social determinants of health: Tobacco abuse History obtained from others: the patient's Consults: internal medicine (Dr. Owens) MDM Narrative: Patient is initially tachycardic rate of 124, tachypneic at a rate of 26, is afebrile and normotensive. Is wearing 4 L O2 by nasal cannula I considered the following differential diagnosis: PE, CAD, ACS, arrhythmia, electrolyte disturbance, pneumonia, COPD exacerbation I obtained a broad lab and imaging workup to further elucidate the etiology of the patient complaint. ALL IMAGES (IF OBTAINED) HAVE BEEN PERSONALLY REVIEWED AND INTERPRETED BY MYSELF. EKG with sinus tachycardia at a rate of 110, normal axis, normal intervals, no obvious STEMI. Similar morphology to EKG from September 28, 2023 CBC with marked leukocytosis (likely secondary to steroid use) suggestive of systemic inflammation, worsening anemia consistent with likely GI bleed on Eliquis VBG without evidence of CO2 retention BMP with significant hyperkalemia (while there is hemolysis potassium 8.4 still is very elevated will treat empirically and repeat BMP), no evidence of an elevated anion gap or metabolic acidosis, no evidence of acute kidney injury Lactate elevated consistent endorgan hypoperfusion I suspect this is related to hypoxia rather than sepsis given there is no source of infection, no fever. He does have an elevated white blood cell count as well will await cultures. BNP within normal limits making heart failure less likely High-sensitivity troponin is negative, no evidence of myocardial ischemia The synthesis of the patient history, physical exam, labs images suggest a multifactorial etiology including respiratory failure, significant anemia, GI bleed on Eliquis, significant lactate abnormalities and for hyperkalemia. Given multiple lab abnormalities, significant respiratory distress requiring BiPAP patient will need admission to ICU. Discussed case with the overnight hospitalist. Overnight hospital recommended ICU admission. He also has if I can redraw BMP and start the patient on broad-spectrum antibiotics given elevated lactate and elevated white blood cell count despite not having obvious source of infection. Vancomycin and Zosyn were given. The patient and/or family, caregivers express understanding. The patient and/or family, caregivers agrees with the plan. Shared decision making: I will have a discussion with the patient and or visitors regarding risk/benefits of further testing or admission. They will be made aware of of the risk/benefits inherent in this decision they will be given the opportunity to voice understanding. Total critical care time today provided was at least 60 minutes. This excludes separately billable procedures. Critical care time (if documented) is secondary to the patient having high probability of clinically significant/life threatening deterioration in the patient's condition which required my urgent intervention. Impression: 1. Acute respiratory failure 2. Leukocytosis 3. GI bleed 4. History of anticoagulation 5. Hyperkalemia 6. Elevated lactate Dispo: Admit to ICU This note was generated with [employer] dictation software. It may contain incorrect words, spelling, and punctuation that were not noted in review of the chart prior to signing. Lab Data Labs: Laboratory Results - last 24 hr 10/05/23 10/05/23 10/05/23 17:41 18:25 19:40 WBC 20.3 H RBC 2.91 L Hgb 7.9 L Hct 25.7 L MCV 88.3 MCH 27.1 MCHC 30.7 L RDW Std Deviation 52.5 H RDW Coeff of Estelita 16.5 H Plt Count 343 MPV 10.4 Immature Gran % (Auto) 1.600 H Neut % (Auto) 94.6 H Lymph % (Auto) 1.9 L Clay % (Auto) 1.8 Eos % (Auto) 0.0 Baso % (Auto) 0.1 Absolute Neuts (auto) 19.2 H Absolute Lymphs (auto) 0.38 L Nucleated RBC % 0.3 Differential Comment SEE COMMENT Platelet Estimate ADEQUATE RBC Morphology N CHROM Polychromasia RARE Hypochromasia 1+ Anisocytosis RARE Macrocytosis RARE Ovalocytes RARE Sodium 134 L Potassium 8.4 H* Chloride 104 Carbon Dioxide 26.0 Anion Gap 4 L BUN 35 H Creatinine 1.09 Estim Creat Clear Calc 56.61 Est GFR (MDRD) Af Amer 84 Est GFR (MDRD) Non-Af 69 BUN/Creatinine Ratio 32.1 H Glucose 166 H Lactic Acid 3.4 H* Calcium 8.4 L Troponin I High Sens 65 B-Natriuretic Peptide 53.7 Blood Type O NEGATIVE Antibody Screen NEGATIVE ABG Data ABG results: ABG 10/05/23 18:44 Specimen Type MARTIN Sample Site Not entered O2 % 30.0 VBG pH 7.53 H VBG pO2 114 H VBG HCO3 26 VBG Total CO2 27 VBG O2 Sat (Calc) 99 H VBG Base Excess 3 POC Mix VBG pCO2 Pt Tmp 31.4 L O2 Delivery Device BiPAP Clinical Comments 02/04 12 30% Radiography Diagnostic Testing: Clinical Impression(s) from Imaging Studies Brain CT 10/05/23 19:22 IMPRESSION: Mild atrophy and periventricular white matter ischemic changes. No evidence for acute intracranial hemorrhage Electronically Signed: Michael Jim MD at 19:44 EDT Reading Location ID and State: [facility] / [place] Tel [phone], Service support , Chest CTA 10/05/23 19:22 IMPRESSION: Chronic interstitial changes more pronounced in the lower lobes with associated bronchiectatic changes ASHD without evidence for aortic aneurysm. No evidence for pulmonary embolus Other findings as above Electronically Signed: Michael Jim MD at 19:57 EDT , Discharge Plan Triage Chief Complaint: Fall ED Provider: Ruben Zuniga Dx/Rx/DC Orders Primary Care Provider: Dillan Cummins
--- NOTE | 2023-10-05 18:15 | EKG12_ITS ---
Test Reason : FALL/SOB Blood Pressure : / mmHG Vent. Rate : 110 BPM Atrial Rate : 110 BPM P-R Int : 136 ms QRS Dur : 082 ms QT Int : 302 ms P-R-T Axes : 042 026 253 degrees QTc Int : 408 ms Sinus tachycardia with Premature atrial complexes ST & T wave abnormality, consider inferolateral ischemia Abnormal ECG Confirmed by Miguel Lara ([id number]), subeditor YINA HERNANDEZ ([id number]) on 10/06/2023 2:11:42 PM Referred By: TA/ALEX Confirmed By:Miguel Lara
[2023-10-05] MEDS: Ipratropium/Albuterol Sulfate 3 ML AMPUL.NEB INHALATION (18:36)
[2023-10-05 18:40] LABS: Absolute Lymphocyte Count 0.38 X10^3/uL (0.83-4.51); Absolute Neutrophil Count 19.2 X10^3/uL (2.0-7.7); Basophil# 0.02 X10^3/uL; Basophil% 0.1 % (0-1); Hematocrit 25.7 % (40-54); Hemoglobin 7.9 g/dL (13.0-16.5); Lymphocyte # 0.38 X10^3/ul (0.83-4.51); Lymphocyte % 1.9 % (19-41); Mean Corp Hgb Conc 30.7 g/dL (32-36); Mean Corpuscular Hgb 27.1 pg (27.0-32.0); Mean Corpuscular Volume 88.3 fL (80-94); Mean Platelet Vol. 10.4 fl (6.2-12.0); Monocyte# 0.36 X10^3/uL; Monocyte% 1.8 % (0-10); NRBC Flagged by Analyzer 0.3 % (0-5); Neutrophil # 19.18 X10^3/uL (2.7-7.7); Neutrophil % 94.6 % (47-70); POSITIVE DIFFERENTIAL YES; Platelet Count 343 K/mm3 (150-450); RBC Distribution Width CV 16.5 % (11.6-14.6); RBC Distribution Width SD 52.5 fl (35.1-43.9); Red Blood Count 2.91 M/mm3 (4.6-6.2); White Blood Count 20.3 K/mm3 (4.4-11.0)
[2023-10-05 18:47] LABS: Blood Gas Specimen Type VEN; Comment 12/6 12 30%; O2 Delivery Device BiPAP; SITE Not entered; VBG BASE EXCESS 3 mmol/L (-1.0-3.5); VBG Bicarbonate 26 mmol/L (22-26); VBG PO2 114 mmHg (25-40); VBG SO2 99 % (50-70); VBG TCO2 27 mmol/L (23-33); VBG pCO2 31.4 mmHg (41-51); VBG pH 7.53 (7.32-7.42)
[2023-10-05 18:59] LABS: Differential Indicated SCAN CRITERIA MET
[2023-10-05 19:03] LABS: Anion Gap 4 (5-15); BUN 35 mg/dL (7-18); BUN/Creat Ratio 32.1 RATIO (10-20); Calcium,Total 8.4 mg/dL (8.5-10.1); Chloride 104 mmol/L (98-107); Creatinine, Serum 1.09 mg/dL (0.70-1.30); EST Glomerular Filtration Rate 69 mL/min (>60); Est Glom Filt Rate - Afr Amer 84 mL/min (>60); Estimated Creatinine Clearance 56.61 ml/min; Glucose 166 mg/dL (74-106); Potassium 8.4 mmol/L (3.5-5.1); Sodium Level 134 mmol/L (136-145); Troponin-I HS 65 pg/mL (3.0-78.0)
[2023-10-05 19:14] LABS: Platelet Estimate ADEQUATE (ADEQ); Red Cell Morphology N CHROM NORMAL (NORM C&C)
[2023-10-05 19:15] LABS: Anisocytosis RARE; Hypochromasia 1+; Macrocytosis RARE; Ovalocyte RARE; Polychromasia RARE
[2023-10-05 19:20] LABS: BNP,B-Type NATRIURETIC PEPTIDE 53.7 pg/mL (0-100)
--- NOTE | 2023-10-05 19:22 | CT_ITS ---
STUDY: CTA CHEST REASON FOR EXAM: Male, 83 years old. dyspnea RADIATION DOSAGE (If Supplied By Facility): CTDIvol = ( 12.85 ) mGy, DLP = ( 513.29 ) mGycm TECHNIQUE: The examination was performed with the intravenous administration of IV. Post-processing of the angiographic images was performed, with multiplanar reformation and 3D reconstruction. Individualized dose optimization techniques were used for this CT. COMPARISON: September 28, 2023 FINDINGS: Normal enhancement of the main pulmonary artery and right and left pulmonary arteries. Normal enhancement of the bilateral peripheral pulmonary arteries. There is no demonstrated pulmonary embolism. Atherosclerotic changes of the aorta without evidence for aneurysm. There is no demonstrated aortic dissection. Normal heart and pericardium. Normal mediastinum. Normal hilar regions. Normal visualized trachea and bronchi. The lungs are well expanded. Diffuse bilateral interstitial thickening more pronounced the lower lobes association with bronchiectatic changes in both lower lobes... There is associated minor atelectasis at the right base Tiny irregular spiculated density in the left pulmonary apex most likely scarring and larger similar-appearing lesion in the left upper lobe There is a cavitated pleural-based lesion in the lateral aspect of left lower lobe adjacent to an old healed rib fracture Postop change status post median sternotomy and CABG. Dorsal spine demonstrates degenerative change Tiny calcified gallstones without evidence for acute cholecystitis. Right renal cyst is noted which will not require additional imaging There is improved aeration in the right lower lobe since prior exam CT/CTA Chest W/WO Contrast IMPRESSION: Chronic interstitial changes more pronounced in the lower lobes with associated bronchiectatic changes ASHD without evidence for aortic aneurysm. No evidence for pulmonary embolus Other findings as above Electronically Signed: Michael Jim MD at 19:57 EDT ,
--- NOTE | 2023-10-05 19:22 | CT_ITS ---
STUDY: CT BRAIN WITHOUT CONTRAST REASON FOR EXAM: Male, 83 years old. fall, head trauma RADIATION DOSAGE (If Supplied By Facility): CTDIvol = ( 44.99 ) mGy, DLP = ( 863.60 ) mGycm TECHNIQUE: Transaxial CT imaging of the brain was performed without administration of intravenous contrast material. Individualized dose optimization techniques were used for this CT. COMPARISON: January 12, 2012. FINDINGS: Normal soft tissue structures. Normal calvarium. Diffuse calcific plaquing of the cavernous carotids and to a lesser extent the vertebral arteries Mild atrophy and periventricular white matter ischemic changes. Normal basal ganglia and thalami. Normal brainstem. Mild diffuse cerebellar atrophy. There is no intracranial hemorrhage. There are no findings of an acute ischemic infarction. Polypoid mucosal thickening within the maxillary sinuses bilaterally and right ethmoid sinus. Postsurgical changes of the orbits CT/Brain/Head without Contrast IMPRESSION: Mild atrophy and periventricular white matter ischemic changes. No evidence for acute intracranial hemorrhage Electronically Signed: Michael Jim MD at 19:44 EDT ,
[2023-10-05 20:17] LABS: Lactic Acid 3.4 mmol/L (0.4-1.9)
[2023-10-05] MEDS: Dextrose 10%-Water 250 ML 999 ML IV (20:18)
[2023-10-05] MEDS: Insulin Lispro 10 UNIT in Syringe 0 ML 6 UNIT IV (20:18)
[2023-10-05] MEDS: Calcium Gluconate IV 3 GM in Syringe 1 EACH IV (20:19)
--- NOTE | 2023-10-05 20:54 | HP.PCM_ITS ---
[facility] - General General Date of Admission: 10/05/23 Date of Service: 10/05/23 Chief Complaint: Shortness of breath, fall at home HPI Narrative OSWALDO MENDIOLA, is a 83 M who presents to the emergency room with chief complaint of shortness of breath. Patient was trying to walk to the toilet as he fell down due to being short of breath. He did sustain bruising to his right upper extremity however no other injuries were noted at this time. Patient has a significant past medical history of lung cancer, COPD, COVID infection 10 days ago and gastrointestinal bleeding from both upper and lower GI tract. After recent hospitalization in the end of August patient was restarted on Eliquis and now patient reports having dark stools. Current CBC reveals an elevated white blood cell count of 20.3, hemoglobin 7.9, hematocrit 25.7, platelets of 343. BMP reveals a sodium of 134, potassium 8.4 (hemolyzed), chloride 104 bicarb 26 BUN 35 creatinine 1.09 and glucose 166, lactate 3.[address] chest reveals a cavitated pleural lesion on the left lateral lower lobe that is consistent with his history of lung cancer. He also has sternotomy wires due to history of coronary artery bypass graft. On September 28 Dr. 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 The patient has very labile respiratory status with any movement he desaturates below 80% but does recover using BiPAP and rest. I spent some time discussing CODE STATUS with the patient who is unable to reach a decision at this time and therefore will remain full code at present. Patient will be AN ICU admission due to impending respiratory failure. Initial management in the emergency room included treatment of hyperkalemia, IV fluids, BiPAP respiratory management and broad-spectrum antibiotics. [facility] Medical History Depression Myocardial infarct Coronary artery disease Pulmonary neoplasm Pulmonary embolus Wears glasses Wears dentures Cancer Anxiety Abrasion History of steroid therapy Prostate disease High cholesterol Injury of back Syncope History of weight loss Former smoker COPD (chronic obstructive pulmonary disease) On home oxygen therapy Shortness of breath on exertion Chronic cough History of stress test Cardiology follow-up encounter Chest pain No pertinent family history 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 Nocturnal hypoxemia Chronic hypoxemic respiratory failure Bronchiectasis Prostate CA CAD (coronary artery disease) HLD (hyperlipidemia) Benign essential HTN Home Medications ?Medication ?Instructions ?Recorded ?Last Taken ?Type aspirin 81 mg chewable tablet 81 mg PO QPM heart health 12/29/14 10/05/23 History nitroglycerin 0.4 mg sublingual 0.4 mg sublingual Q5M PRN Chest 12/29/14 1 Week Ago History tablet Pain ~07/02/20 lorazepam 1 mg tablet (Ativan) 0.5 - 1 mg PO TID PRN Anxiety 07/09/20 03/25/23 History polyethylene glycol 3350 17 gram 17 g PO DAILY PRN Constipation 07/09/20 03/24/23 History oral powder packet (Miralax) acetaminophen 325 mg tablet 650 mg PO Q4H PRN Pain 08/13/20 03/24/23 History (Tylenol) oxycodone 5 mg tablet 5 mg PO Q6H PRN PAIN AND BREATHING 02/05/22 10/05/23 History fluticasone propionate 230 2 puff inhalation BID breathing 08/07/22 03/25/23 History mcg-salmeterol 21 mcg/actuation HFA inhaler (Advair HFA) atorvastatin 40 mg tablet 40 mg PO QHS cholesterol 03/25/23 10/04/23 History duloxetine 30 mg capsule,delayed 30 mg PO QPM DEPRESSION 03/25/23 10/04/23 History release tamsulosin 0.4 mg capsule 0.4 mg PO QPM BLADDER/ PROSTATE 03/25/23 10/04/23 History tiotropium bromide 2.5 2 puff inhalation DAILY copd 03/25/23 10/05/23 History mcg/actuation mist for inhalation (Spiriva Respimat) ezetimibe 10 mg tablet 10 mg PO DAILY cholesterol 09/28/23 10/05/23 History guaifenesin 600 mg tablet, 1,200 mg PO Q12H PRN cough 09/28/23 10/05/23 History extended release 12 hr (Mucinex) levalbuterol tartrate 45 2 puff inhalation Q4H PRN PRN 09/28/23 Unknown History mcg/actuation aerosol inhaler wheezing prednisone 10 mg tablet 10 mg PO DAILY inflammation 09/28/23 10/05/23 History amoxicillin 875 mg-potassium 1 tab PO BID #10 tabs 09/30/23 10/05/23 Rx clavulanate 125 mg tablet fluconazole 100 mg tablet 100 mg PO DAILY #14 tabs 09/30/23 10/05/23 Rx prednisone 20 mg tablet 40 mg (2 x 20 mg) PO DAILY #10 tabs 09/30/23 10/05/23 Rx apixaban 5 mg tablet (Eliquis) 5 mg PO Q12H 10/05/23 10/05/23 History Allergy/AdvReac Type Severity Reaction Status Date / Time isosorbide (From Imdur) Allergy Other-patient Verified 10/05/23 17:24 blacks out Family History Other No pertinent family history Surgical History Hx of CABG Hx of heart artery stent Hx of transurethral resection of prostate Hx of pneumonectomy Hx of CABG No pertinent past surgical history Social History Smoking Status: Former smoker Tobacco: How many years used: 45 Electronic Cigarette Use: not used how long ago did patient quit smokin, second hand exposure: Yes alcohol intake: never substance use type: does not use ROS Constitutional Constitutional: Denies chills or fever(s) Eyes Eyes: Denies blurry vision ENT HEENT: Reports abnormal hearing; Denies sore throat Cardiovascular Cardiovascular: Denies chest pain Respiratory/Chest Respiratory/Chest: Reports shortness of breath at rest and wheezing Gastrointestinal Gastrointestinal: Reports melena; Denies diarrhea Genitourinary Genitourinary: Denies hematuria Musculoskeletal Musculoskeletal: Denies back pain Integumentary Integumentary: Denies jaundice Neurologic Neurologic: Denies abnormal speech Psychiatric Psychiatric: Reports anxiety Hematologic/Lymphatic Hematologic/Lymphatic: Reports anemia Vital Signs Vital Signs Vital Signs: 10/05/23 17:24 10/05/23 18:25 10/05/23 18:30 Temperature 97.8 F 98.1 F Temperature Source Temporal Temporal Pulse Rate 124 H 108 H 108 H Respiratory Rate 26 H 29 H 24 H Respiratory Effort Respiratory Pattern Tachypnea Blood Pressure 116/85 H 103/78 Blood Pressure Mean 95 86 Pulse Ox 99 97 97 Oxygen Delivery Method Nasal Cannula Bi-pap Oxygen Flow Rate (L/min) 4 Fraction of Inspired Oxygen (FIO2) 30 10/05/23 18:31 10/05/23 18:32 10/05/23 18:36 Temperature Temperature Source Pulse Rate 105 H Respiratory Rate 26 H Respiratory Effort Short of Breath Respiratory Pattern Tachypnea Blood Pressure Blood Pressure Mean Pulse Ox Oxygen Delivery Method Bi-pap Bi-pap Oxygen Flow Rate (L/min) Fraction of Inspired Oxygen (FIO2) 10/05/23 19:43 10/05/23 20:42 Temperature Temperature Source Pulse Rate 92 Respiratory Rate 14 Respiratory Effort Respiratory Pattern Normal Blood Pressure Blood Pressure Mean Pulse Ox 99 98 Oxygen Delivery Method Nasal Cannula Oxygen Flow Rate (L/min) 3 Fraction of Inspired Oxygen (FIO2) 30 Weight Weight: 188 lb 0.869 oz Body Mass Index (BMI) 26.2 Physical Exam Const alert and oriented x3 General Appearance: cooperative and well developed HEENT normocephalic and head/scalp atraumatic Eyes PERRL and EOMs intact bilaterally Neck no lymphadenopathy General: trachea midline Lymph Lymphatic: no lymphedema noted Resp Effort and Inspection: tachypneic, respiratory distress and labored Auscultation: wheezes expiratory wheezes Cardio regular rhythm, S1 normal heart sound and S2 normal heart sound Rate: tachycardic GI normal to inspection, nondistended, normoactive bowel sounds Extremity normal capillary refill and no clubbing, cyanosis or edema Skin Skin Narrative: Numerous bruises on upper extremities bilaterally General Skin Exam: Negative for skin tear(s) Neuro CN's II-XII intact bilaterally and no focal motor deficits Psych thought process normal, cooperative and affect normal Mood & Affect: anxious Results Lab / Micro Data 10/05/23 17:41 10/05/23 17:41 Labs: Laboratory Results - last 24 hr 10/05/23 17:41: WBC 20.3 H, RBC 2.91 L, Hgb 7.9 L, Hct 25.7 L, MCV 88.3, MCH 27.1, MCHC 30.7 L, RDW Std Deviation 52.5 H, RDW Coeff of Estelita 16.5 H, Plt Count 343, MPV 10.4, Immature Gran % (Auto) 1.600 H, Neut % (Auto) 94.6 H, Lymph % (Auto) 1.9 L, Marion % (Auto) 1.8, Eos % (Auto) 0.0, Baso % (Auto) 0.1, Absolute Neuts (auto) 19.2 H, Absolute Lymphs (auto) 0.38 L, Nucleated RBC % 0.3, Differential Comment SEE COMMENT, Platelet Estimate ADEQUATE, RBC Morphology N CHROM, Polychromasia RARE, Hypochromasia 1+, Anisocytosis RARE, Macrocytosis RARE, Ovalocytes RARE, Sodium 134 L, Potassium 8.4 H*, Chloride 104, Carbon Dioxide 26.0, Anion Gap 4 L, BUN 35 H, Creatinine 1.09, Estim Creat Clear Calc 56.61, Est GFR (MDRD) Af Amer 84, Est GFR (MDRD) Non-Af 69, BUN/Creatinine Ratio 32.1 H, Glucose 166 H, Calcium 8.4 L, Troponin I High Sens 65, B-Natriuretic Peptide 53.7 10/05/23 18:25: Blood Type O NEGATIVE, Antibody Screen NEGATIVE 10/05/23 19:40: Lactic Acid 3.4 H* Micro: Microbiology 10/05/23 18:25 Stool Stool Occult Blood (YAMINI) - Final Occult Blood Positive ABG Data ABG results: ABG 10/05/23 18:44 Specimen Type MARTIN Sample Site Not entered O2 % 30.0 VBG pH 7.53 H VBG pO2 114 H VBG HCO3 26 VBG Total CO2 27 VBG O2 Sat (Calc) 99 H VBG Base Excess 3 POC Mix VBG pCO2 Pt Tmp 31.4 L O2 Delivery Device BiPAP Clinical Comments 02/04 12 30% Imaging Radiology Impression Brain CT 10/05/23 19:22 IMPRESSION: Mild atrophy and periventricular white matter ischemic changes. No evidence for acute intracranial hemorrhage Electronically Signed: Michael Jim MD at 19:44 EDT , Chest CTA 10/05/23 19:22 IMPRESSION: Chronic interstitial changes more pronounced in the lower lobes with associated bronchiectatic changes ASHD without evidence for aortic aneurysm. No evidence for pulmonary embolus Other findings as above Electronically Signed: Michael Jim MD at 19:57 EDT , Assessment & Plan Assessment/Plan (1) Fecal occult blood test positive: (2) History of coronary artery disease: (3) Acidosis, lactic: (4) Pulmonary cavitary lesion: (5) Acute and chronic respiratory failure with hypoxia: (6) COPD with acute exacerbation: (7) Squamous cell carcinoma of left lung: (8) Benign essential HTN: (9) HLD (hyperlipidemia): QUALIFIERS: Hyperlipidemia type: unspecified Qualified Code(s): E 78.5 - Hyperlipidemia, unspecified (10) CAD (coronary artery disease): QUALIFIERS: Associated angina: angina presence unspecified PLAN: Plan 1 acute respiratory failure?admit patient to intensive care unit, consult outplacement consultant, continue BiPAP initiated in the emergency room, continue broad- spectrum antibiotics until de-escalated by pulmonary speech and language specialist, IV Solu-Medrol 40 mg IV every 8 hours, respiratory treatments with Atrovent every 4 hours. 2. Elevated lactate level?repeat per routine protocol in 4 hours, IV fluids normal saline at a rate of 125 cc/h. 3. Gastrointestinal bleed?continue monitoring H&H, add IV Protonix every 40 mg IV every 12 hours hold anticoagulation and reconsult Dr. Moreno 4. History of lung cancer?had lengthy discussion regarding CODE STATUS wishes- remains full code at this time 5. Hyperlipidemia will hold p.o. medications at this time due to GI bleed 6. DVT prophylaxis?SCDs due to current anemia
[2023-10-05 21:12] LABS: Reflex Lactate? Y
[2023-10-05] MEDS: Vancomycin HCl 1,250 MG in 0.9% Normal Saline (250mL Bag) 250 ML 167 MG IV (21:15)
[2023-10-05] MEDS: Piperacil/Tazobactam 3.375 GM in 0.9% Normal Saline (50mL MB+) 50 ML IV (21:15)
[2023-10-05 21:53] LABS: Bedside Glucose 115 mg/dL (74-106)
[2023-10-05 22:41] LABS: Hemoglobin 6.8 g/dL (13.0-16.5)
[2023-10-05 22:59] LABS: Anion Gap 6 (5-15); BUN 33 mg/dL (7-18); BUN/Creat Ratio 32.7 RATIO (10-20); Calcium,Total 8.9 mg/dL (8.5-10.1); Chloride 105 mmol/L (98-107); Creatinine, Serum 1.01 mg/dL (0.70-1.30); EST Glomerular Filtration Rate 75 mL/min (>60); Est Glom Filt Rate - Afr Amer 91 mL/min (>60); Estimated Creatinine Clearance 61.09 ml/min; Glucose 87 mg/dL (74-106); Potassium 4.4 mmol/L (3.5-5.1); Sodium Level 138 mmol/L (136-145)
[2023-10-06] VITALS (33 sets, daily range): BP systolic 99–155; BP diastolic 57–99; PULSE 74–124; RESP 16–34; TEMP 35.9–36.7; O2SAT 92–100; BMI 24.3
[2023-10-06] MEDS: Pantoprazole Sodium 40 MG in 0.9% Normal Saline (100mL MB+) 100 ML 330 MG IV ×3 (00:24→20:46)
[2023-10-06] MEDS: 0.9% Normal Saline (1000mL) 1,000 ML 125 ML IV ×3 (00:24→17:49)
[2023-10-06 01:53] LABS: Lactic Acid 2.1 mmol/L (0.4-1.9)
[2023-10-06 04:03] LABS: Absolute Lymphocyte Count 0.44 X10^3/uL (0.83-4.51); Absolute Neutrophil Count 19.1 X10^3/uL (2.0-7.7); Basophil# 0.02 X10^3/uL; Basophil% 0.1 % (0-1); Hematocrit 22.9 % (40-54); Hemoglobin 6.7 g/dL (13.0-16.5); Lymphocyte # 0.44 X10^3/ul (0.83-4.51); Lymphocyte % 2.2 % (19-41); Mean Corp Hgb Conc 29.3 g/dL (32-36); Mean Corpuscular Hgb 26.3 pg (27.0-32.0); Mean Corpuscular Volume 89.8 fL (80-94); Mean Platelet Vol. 9.7 fl (6.2-12.0); Monocyte# 0.29 X10^3/uL; Monocyte% 1.4 % (0-10); NRBC Flagged by Analyzer 0.3 % (0-5); Neutrophil # 19.09 X10^3/uL (2.7-7.7); Neutrophil % 94.9 % (47-70); POSITIVE DIFFERENTIAL YES; Platelet Count 294 K/mm3 (150-450); RBC Distribution Width CV 16.1 % (11.6-14.6); RBC Distribution Width SD 51.7 fl (35.1-43.9); Red Blood Count 2.55 M/mm3 (4.6-6.2); White Blood Count 20.1 K/mm3 (4.4-11.0)
[2023-10-06 04:28] LABS: Anion Gap 4 (5-15); BUN 36 mg/dL (7-18); BUN/Creat Ratio 29.5 RATIO (10-20); Calcium,Total 8.4 mg/dL (8.5-10.1); Chloride 106 mmol/L (98-107); Creatinine, Serum 1.22 mg/dL (0.70-1.30); EST Glomerular Filtration Rate 61 mL/min (>60); Est Glom Filt Rate - Afr Amer 73 mL/min (>60); Estimated Creatinine Clearance 50.58 ml/min; Glucose 166 mg/dL (74-106); Potassium 4.5 mmol/L (3.5-5.1); Sodium Level 138 mmol/L (136-145)
[2023-10-06 05:16] LABS: Reflex Lactate? Y
[2023-10-06] MEDS: Ipratropium 0.5 MG/2.5 ML SOLUTION INHALATION ×3 (07:02→23:15)
[2023-10-06 07:14] LABS: Lactic Acid 1.9 mmol/L (0.4-1.9)
[2023-10-06 09:22] LABS: Hemoglobin 6.5 g/dL (13.0-16.5)
--- NOTE | 2023-10-06 09:42 | CT_ITS ---
STUDY: CTA ABDOMEN AND PELVIS WITH CONTRAST REASON FOR EXAM: Male, 83 years old. GI Bleeding RADIATION DOSAGE (If Supplied By Facility): CTDIvol = ( 32.29 ) mGy, DLP = ( 1199.91 ) mGycm TECHNIQUE: Transaxial images were obtained from the dome of the diaphragm to the symphysis pubis without oral contrast. IV 100mL Isovue-370 was administered. Sagittal and coronal images were reconstructed. 3-D images were reconstructed. Individualized dose optimization techniques were used for this CT. COMPARISON: Comparison is made with prior study dated September 28, 2023. FINDINGS: Nodular densities once again seen in the right lower lobe. Cystic density in the lateral aspect of the left lung base with no flow. This is unchanged. Coronary artery calcification. There is decreased attenuation of the liver consistent with steatosis. Findings suggestive of a small layering gallstones along the dependent portion of the gallbladder lumen. Normal spleen. Normal pancreas. Normal bilateral adrenal glands. Stable 2 cm cyst in the anterior-inferior aspect of the right kidney. Normal left kidney. Normal visualized stomach. Normal small intestine. There are multiple colonic diverticula consistent with diverticulosis. The appendix is visualized and appears normal. Stable abdominal aortic aneurysm of the distal abdominal aorta with a transverse dimension of 2.8 cm with stable anterior mural thrombus. Normal inferior vena cava. Normal retroperitoneum. Normal urinary bladder. Stable enlargement of the prostate with indentation of the bladder base more prominent on the right side. There is evidence of prior TURP. Normal abdominal wall. There are diffuse degenerative changes of the visualized lumbar spine. Loss of height of the superior endplate of the L4 vertebrae with a grade 2 anterolisthesis of L5 on S1 due to spondylolysis of the pars interarticularis of the L5 vertebrae. CT/CTA Abd/Pelvis W/WO Contrast IMPRESSION: Diffuse fatty infiltration of the liver. Findings suggest a small layering gallstones along the dependent portion of the gallbladder lumen. Stable infrarenal abdominal aortic aneurysm with anterior mural clot. Sigmoid diverticulosis. Prostatic enlargement with indentation of the bladder base. Electronically Signed: Fernando Sidhu MD at 14:39 EDT ,
[2023-10-06] MEDS: LORazepam 2 MG/ML Syringe 1 MG IV ×2 (09:52→14:45)
--- NOTE | 2023-10-06 10:14 | PCM.RX.CS ---
Consult Antibiotic Management Pharmacy has been consulted to manage selected antibiotic: Vancomycin Type of Intervention Type of Consult: New start Labs Labs: Sodium 138 mmol/L (136-145) 10/06/23 03:55 Potassium 4.5 mmol/L (3.5-5.1) 10/06/23 03:55 Chloride 106 mmol/L (98-107) 10/06/23 03:55 Carbon Dioxide 28.0 mmol/L (21.0-32.0) 10/06/23 03:55 Anion Gap 4 (5-15) L 10/06/23 03:55 BUN 36 mg/dL (7-18) H 10/06/23 03:55 Creatinine 1.22 mg/dL (0.70-1.30) 10/06/23 03:55 Est GFR (MDRD) Af Amer 73 mL/min (>60) 10/06/23 03:55 Est GFR (MDRD) Non-Af 61 mL/min (>60) 10/06/23 03:55 BUN/Creatinine Ratio 29.5 RATIO (10-20) H 10/06/23 03:55 Glucose 166 mg/dL (74-106) H 10/06/23 03:55 Microbiology Microbiology: Microbiology 10/05/23 23:30 Wound - Arm Right Skin and Soft Tissue MRSA/MSSA (PCR - Final 10/05/23 18:25 Stool Stool Occult Blood (YAMINI) - Final Occult Blood Positive Pharmacy Plan for Drug Dosing Pharmacy Plan for Drug Dosing: NEW START IV VANCOMYCIN Consulting Physician: Hina Indication: Pneumonia? Goal Trough: 15-20 mg/dL SrCr: 1.22 mg/dL CrCl: 50.5 mL/min Comments: ER dose of 1250mg given 10/04 @ 2115 Vancomycin Dose: Will start 750mg Q12 now and get a level prior to 4th total dose. Pending Level: 10/07/23 @ 1000 Pharmacy Service will continue to monitor and adjust dosing as required.
[2023-10-06] MEDS: Piperacil/Tazobactam 3.375 GM in 0.9% Normal Saline (50mL MB+) 50 ML IV ×3 (10:18→20:46)
[2023-10-06 10:39] LABS: BNP,B-Type NATRIURETIC PEPTIDE 75.9 pg/mL (0-100)
--- NOTE | 2023-10-06 13:48 | EKG12_ITS ---
Test Reason : Blood Pressure : / mmHG Vent. Rate : 093 BPM Atrial Rate : 093 BPM P-R Int : 140 ms QRS Dur : 112 ms QT Int : 350 ms P-R-T Axes : 063 006 131 degrees QTc Int : 435 ms Sinus rhythm with occasional Premature ventricular complexes Incomplete left bundle branch block Marked ST abnormality, possible anterior subendocardial injury Abnormal ECG Confirmed by SAHIL SOTO, LINDSEY ([id number]), scientific publications editor YINA HERNANDEZ ([id number]) on 10/12/2023 2:24:34 PM Referred By: Confirmed By:ITA BAXTER MD
--- NOTE | 2023-10-06 14:05 | ECHOCS_ITS ---
Reason For Study: CHEST PAIN Procedure This was a 2D Doppler, Color Flow transthoracic echocardiogram. The study was technically difficult. Contrast injection was performed. The study was technically limited. Exam performed portable in ICU/CCU. Left Ventricle Normal LV size. Left ventricular systolic function is lower limits of normal. No regional wall motion abnormalities noted. Right Ventricle Normal RV size. The right ventricle is normal in size, function, and thickness. Atria Normal left atrium. Normal right atrium. Mitral Valve Normal mitral valve. Tricuspid Valve Normal tricuspid valve. Aortic Valve Trisinus/trileaflet aortic valve. Mild focal aortic valve calcification. Great Vessels Normal aortic root. The pulmonary artery is normal size. Inferior vena cava collapse with respiration. Pericardium/Pleural No pericardial effusion. Medication Diluted definity 3ml given slow IV push to enhance endocardial definition. MMode/2D Measurements & Calculations RVDd: 3.4 cm LVOT diam: 2.2 cm Ao root diam: 3.8 cm LVOT area: 3.8 cm2 LAV(MOD-bp): 28.4 ml LVAd ap4: 31.4 cm2 LVAd ap2: 29.9 cm2 LAV(MOD-bp) Indexed: 14.3 ml/m2 LVLd ap4: 8.5 cm LVLd ap2: 8.5 cm LAV(MOD-sp2): 37.7 ml EDV(MOD-sp4): 93.1 ml EDV(MOD-sp2): 84.5 ml LAV(MOD-sp4): 17.6 ml EDV(sp4-el): 98.8 ml EDV(sp2-el): 88.8 ml LVAs ap4: 21.1 cm2 LVAs ap2: 19.1 cm2 LVLs ap4: 7.9 cm LVLs ap2: 7.7 cm ESV(MOD-sp4): 47.1 ml ESV(MOD-sp2): 41.1 ml ESV(sp4-el): 48.0 ml ESV(sp2-el): 40.6 ml EF(MOD-sp4): 49.4 % EF(MOD-sp2): 51.4 % EF(sp4-el): 51.5 % SV(MOD-sp4): 46.0 ml SV(MOD-sp2): 43.4 ml SV(sp4-el): 50.9 ml LA A4 area: 8.2 cm2 RA A4 area: 6.4 cm2 TAPSE: 1.2 cm Doppler Measurements & Calculations Lat Peak E' Tera: 8.3 cm/sec Med Peak E' Tera: 6.8 cm/sec Ao V2 max: 182.3 cm/sec Ao max P.4 mmHg Ao V2 mean: 130.1 cm/sec Ao mean P.6 mmHg Ao V2 VTI: 24.5 cm AV (velocity ratio): 0.51 CYNTHIA(I,D): 2.0 cm2 CYNTHIA(V,D): 1.8 cm2 LV V1 max: 86.7 cm/sec SV(LVOT): 48.1 ml PA V2 max: 104.9 cm/sec LV V1 max P.1 mmHg PA max PG (full): 2.2 mmHg LV V1 mean P.7 mmHg LV V1 mean: 60.5 cm/sec LV V1 VTI: 12.6 cm ECHO/Echo Complete W/ Contrast Interpretation Summary Normal LV size. Left ventricular systolic function is lower limits of normal. Mild focal aortic valve calcification. Ordering Physician: Elizabeth Santamaria Referring Physician: MD Maria G Dillan Performed By: Ro Hernandez RDCS
[2023-10-06] MEDS: Vancomycin HCl 750 MG in 0.9% Normal Saline (250mL Bag) 250 ML 250 MG IV ×2 (14:22→22:24)
[2023-10-06 14:56] LABS: Troponin-I HS 55 pg/mL (3.0-78.0)
[2023-10-06 15:31] LABS: Absolute Lymphocyte Count 0.37 X10^3/uL (0.83-4.51); Absolute Neutrophil Count 12.7 X10^3/uL (2.0-7.7); Basophil# 0.01 X10^3/uL; Basophil% 0.1 % (0-1); Hematocrit 26.5 % (40-54); Hemoglobin 8.3 g/dL (13.0-16.5); Lymphocyte # 0.37 X10^3/ul (0.83-4.51); Lymphocyte % 2.7 % (19-41); Mean Corp Hgb Conc 31.3 g/dL (32-36); Mean Corpuscular Hgb 26.8 pg (27.0-32.0); Mean Corpuscular Volume 85.5 fL (80-94); Mean Platelet Vol. 9.7 fl (6.2-12.0); Monocyte# 0.28 X10^3/uL; Monocyte% 2.1 % (0-10); NRBC Flagged by Analyzer 0.9 % (0-5); Neutrophil # 12.71 X10^3/uL (2.7-7.7); Neutrophil % 93.3 % (47-70); POSITIVE DIFFERENTIAL YES; Platelet Count 277 K/mm3 (150-450); RBC Distribution Width CV 16.8 % (11.6-14.6); RBC Distribution Width SD 50.8 fl (35.1-43.9); White Blood Count 13.6 K/mm3 (4.4-11.0)
--- NOTE | 2023-10-06 15:42 | CON.PCM.CC_ITS ---
HPI Consult Data Date of Consult: 10/06/23 HPI Narrative Reason for Consultation: 83 yo wm with complex past medical hx including Chronic Resp Failure, COPD, HPI Narrative: OSWALDO MENDIOLA, is a 83 M who presents [facility] Medical History Depression Myocardial infarct Coronary artery disease Pulmonary neoplasm Pulmonary embolus Wears glasses Wears dentures Cancer Anxiety Abrasion History of steroid therapy Prostate disease High cholesterol Injury of back Syncope History of weight loss Former smoker COPD (chronic obstructive pulmonary disease) On home oxygen therapy Shortness of breath on exertion Chronic cough History of stress test Cardiology follow-up encounter Chest pain No pertinent family history 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 Nocturnal hypoxemia Chronic hypoxemic respiratory failure Bronchiectasis Prostate CA CAD (coronary artery disease) HLD (hyperlipidemia) Benign essential HTN Home Medications ?Medication ?Instructions ?Recorded ?Last Taken ?Type aspirin 81 mg chewable tablet 81 mg PO QPM heart health 12/29/14 10/05/23 History nitroglycerin 0.4 mg sublingual 0.4 mg sublingual Q5M PRN Chest 12/29/14 1 Week Ago History tablet Pain ~07/02/20 lorazepam 1 mg tablet (Ativan) 0.5 - 1 mg PO TID PRN Anxiety 07/09/20 03/25/23 History polyethylene glycol 3350 17 gram 17 g PO DAILY PRN Constipation 07/09/20 03/24/23 History oral powder packet (Miralax) acetaminophen 325 mg tablet 650 mg PO Q4H PRN Pain 08/13/20 03/24/23 History (Tylenol) oxycodone 5 mg tablet 5 mg PO Q6H PRN PAIN AND BREATHING 02/05/22 10/05/23 History fluticasone propionate 230 2 puff inhalation BID breathing 08/07/22 03/25/23 History mcg-salmeterol 21 mcg/actuation HFA inhaler (Advair HFA) atorvastatin 40 mg tablet 40 mg PO QHS cholesterol 03/25/23 10/04/23 History duloxetine 30 mg capsule,delayed 30 mg PO QPM DEPRESSION 03/25/23 10/04/23 History release tamsulosin 0.4 mg capsule 0.4 mg PO QPM BLADDER/ PROSTATE 03/25/23 10/04/23 History tiotropium bromide 2.5 2 puff inhalation DAILY copd 03/25/23 10/05/23 History mcg/actuation mist for inhalation (Spiriva Respimat) ezetimibe 10 mg tablet 10 mg PO DAILY cholesterol 09/28/23 10/05/23 History guaifenesin 600 mg tablet, 1,200 mg PO Q12H PRN cough 09/28/23 10/05/23 History extended release 12 hr (Mucinex) levalbuterol tartrate 45 2 puff inhalation Q4H PRN PRN 09/28/23 Unknown History mcg/actuation aerosol inhaler wheezing amoxicillin 875 mg-potassium 1 tab PO BID #10 tabs 09/30/23 10/05/23 Rx clavulanate 125 mg tablet fluconazole 100 mg tablet 100 mg PO DAILY #14 tabs 09/30/23 10/05/23 Rx prednisone 20 mg tablet 40 mg (2 x 20 mg) PO DAILY #10 tabs 09/30/23 10/05/23 Rx apixaban 5 mg tablet (Eliquis) 5 mg PO Q12H 10/05/23 10/05/23 History Allergy/AdvReac Type Severity Reaction Status Date / Time isosorbide (From Imdur) Allergy Other-patient Verified 10/05/23 17:24 blacks out Family History Other No pertinent family history Surgical History Hx of CABG Hx of heart artery stent Hx of transurethral resection of prostate Hx of pneumonectomy Hx of CABG No pertinent past surgical history Social History Smoking Status: Former smoker Tobacco: How many years used: 45 Electronic Cigarette Use: not used how long ago did patient quit smokin, second hand exposure: Yes alcohol intake: never substance use type: does not use Objective Data Objective Data Vital Signs: Vital Signs Last response 3 Temperature 36.7 C 10/06/23 12:45 Temperature Source Temporal 10/06/23 12:45 Pulse Rate 95 10/06/23 14:00 Respiratory Rate 28 H 10/06/23 14:00 Respiratory Effort Non-Labored, Short of Breath 10/06/23 12:00 Respiratory Depth Normal 10/06/23 12:00 Respiratory Pattern Normal 10/06/23 12:00 Blood Pressure 155/87 H 10/06/23 14:00 Blood Pressure Mean 109 10/06/23 14:00 Blood Pressure Source Monitor 10/06/23 14:00 Blood Pressure Position Semi-Fowlers 10/06/23 14:00 Blood Pressure Location Left Arm 10/06/23 14:00 Pulse Ox 100 10/06/23 14:00 Oxygen Delivery Method Nasal Cannula 10/06/23 14:00 Oxygen Flow Rate (L/min) 4 10/06/23 14:00 Fraction of Inspired Oxygen (FIO2) 30 10/05/23 19:43 I&O: I&O Last 24 Hours 3 10/05/23 10/06/23 10/06/23 23:59 11:59 23:59 Intake Total 280 / 280 1545 / 2588.08 1043.08 / 2588.08 Output Total 300 / 400 100 / 400 Balance 280 / 280 1245 / 2188.08 943.08 / 2188.08 I&O: Total Stay 3 10/05/23 17:23 thru 10/06/23 15:28 Intake Total 2868.08 Output Total 400 Balance 2468.08 Current Meds Ordered / Administered: Current meds ordered / Administered 3 Generic Name Dose Route Start Last Admin Trade Name Freq PRN Reason Stop Dose Admin Sodium Chloride 1,000 mls @ 125 mls/hr 10/05/23 23:20 10/06/23 15:27 IV 125 mls/hr .Q8H YAZAN Infusion Pantoprazole Sodium 40 mg/ 110 mls @ 330 mls/hr 10/05/23 23:20 10/06/23 10:19 Sodium Chloride IV Infused Q12 YAZAN Infusion Vancomycin IV-PHARMACY TO DOSE 500 mls @ 250 mls/hr 10/06/23 09:42 1 each/ Sodium Chloride IV X1 PRN Rx to Dose Protocol Piperacillin Sod/Tazobactam 50 mls @ 12.5 mls/hr 10/06/23 09:45 10/06/23 14:24 Sod 3.375 gm/ Sodium Chloride IV 12.5 mls/hr Q8 YAZAN Administration Vancomycin HCl 750 mg/ Sodium 265 mls @ 250 mls/hr 10/06/23 10:30 10/06/23 15:28 Chloride IV Infused Q12H YAZAN Infusion Ipratropium [place] 0.5 mg 10/06/23 00:00 10/06/23 11:28 Ipratropium 0.5 Mg/2.5 Ml Solution INHALATION 0.5 mg Q4HWA.RT YAZAN Administration Nitroglycerin 0.4 mg 10/06/23 14:06 Nitroglycerin (Inpatient Use) 0.4 Mg Tab.Subl SL Q5M PRN CARDIAC/CHEST PAIN Ondansetron HCl 4 mg 10/05/23 23:20 Ondansetron 4 Mg/2 Ml Vial IV Q8H PRN PRN NAUSEA/VOMITING Vancomycin Protocol 1 lab 10/07/23 08:00 Vancomycin Trough/Random Due [facility] 10/07/23 12:00 DAILY [facility] Medical Records Data Medical Nutrition Assessment Dietitian: Malnutrition Criteria Met Start: 10/06/23 13:53 Freq: Status: Active Protocol: Document 10/06/23 13:53 SB (Rec: 10/06/23 13:53 SB [id number]) Nutrition Malnutrition Evidence of Malnutrition Exists Yes Malnutrition (severe): Acute Illness/Injury Evidenced By Suboptimal Energy Intake ( Severe),Weight Loss (Severe) Intake Problem Inadequate Oral Intake Etiology related to GI dysfunction Signs/Symptoms as evidence by NPO. Status Active Problem Clinical Problem Acute Disease or Injury Related Malnutrition Etiology severe related to inadequate oral intake and altered GI status Signs/Symptoms as evidence by 2.4% weight loss x 1 week and meeting <50% of estimated energy needs x 1 week. Status Active Problem Recommendation Dietitian Recommendations/Changes Recommend liberalized regular diet, as diet is advanced. Reviewed and approved by Chela John RD, LD Lab / Micro Data 10/06/23 15:15 10/06/23 03:55 Labs: Laboratory Results - last 24 hr 10/05/23 17:41: WBC 20.3 H, RBC 2.91 L, Hgb 7.9 L, Hct 25.7 L, MCV 88.3, MCH 27.1, MCHC 30.7 L, RDW Std Deviation 52.5 H, RDW Coeff of Estelita 16.5 H, Plt Count 343, MPV 10.4, Immature Gran % (Auto) 1.600 H, Neut % (Auto) 94.6 H, Lymph % (Auto) 1.9 L, [place] % (Auto) 1.8, Eos % (Auto) 0.0, Baso % (Auto) 0.1, Absolute Neuts (auto) 19.2 H, Absolute Lymphs (auto) 0.38 L, Nucleated RBC % 0.3, Differential Comment SEE COMMENT, Platelet Estimate ADEQUATE, RBC Morphology N CHROM, Polychromasia RARE, Hypochromasia 1+, Anisocytosis RARE, Macrocytosis RARE, Ovalocytes RARE, Sodium 134 L, Potassium 8.4 H*, Chloride 104, Carbon Dioxide 26.0, Anion Gap 4 L, BUN 35 H, Creatinine 1.09, Estim Creat Clear Calc 56.61, Est GFR (MDRD) Af Amer 84, Est GFR (MDRD) Non-Af 69, BUN/Creatinine Ratio 32.1 H, Glucose 166 H, Calcium 8.4 L, Troponin I High Sens 65, B-Natriuretic Peptide 53.7 10/05/23 18:25: Blood Type O NEGATIVE, Antibody Screen NEGATIVE 10/05/23 19:40: Lactic Acid 3.4 H* 10/05/23 21:35: POC Glucose 115 H 10/05/23 22:29: Hgb 6.8 L, Sodium 138, Potassium 4.4, Chloride 105, Carbon Dioxide 27.0, Anion Gap 6, BUN 33 H, Creatinine 1.01, Estim Creat Clear Calc 61.09, Est GFR (MDRD) Af Amer 91, Est GFR (MDRD) Non-Af 75, BUN/Creatinine Ratio 32.7 H, Glucose 87, Calcium 8.9 10/06/23 01:00: Lactic Acid 2.1 H* 10/06/23 03:55: WBC 20.1 H, RBC 2.55 L, Hgb 6.7 L, Hct 22.9 L, MCV 89.8, MCH 26.3 L, MCHC 29.3 L, RDW Std Deviation 51.7 H, RDW Coeff of Estelita 16.1 H, Plt Count 294, MPV 9.7, Immature Gran % (Auto) 1.400 H, Neut % (Auto) 94.9 H, Lymph % (Auto) 2.2 L, [place] % (Auto) 1.4, Eos % (Auto) 0.0, Baso % (Auto) 0.1, Absolute Neuts (auto) 19.1 H, Absolute Lymphs (auto) 0.44 L, Nucleated RBC % 0.3, Sodium 138, Potassium 4.5, Chloride 106, Carbon Dioxide 28.0, Anion Gap 4 L, BUN 36 H, Creatinine 1.22, Estim Creat Clear Calc 50.58, Est GFR (MDRD) Af Amer 73, Est GFR (MDRD) Non-Af 61, BUN/Creatinine Ratio 29.5 H, Glucose 166 H, Calcium 8.4 L 10/06/23 06:00: Lactic Acid 1.9 10/06/23 09:09: Hgb 6.5 L, B-Natriuretic Peptide 75.9, Blood Type O NEGATIVE, Antibody Screen NEGATIVE, Crossmatch See Detail 10/06/23 14:15: Troponin I High Sens 55 10/06/23 15:15: WBC 13.6 H, RBC 3.10 L, Hgb 8.3 L, Hct 26.5 L, MCV 85.5, MCH 26.8 L, MCHC 31.3 L D, RDW Std Deviation 50.8 H, RDW Coeff of Estelita 16.8 H, Plt Count 277, MPV 9.7, Immature Gran % (Auto) 1.800 H, Neut % (Auto) 93.3 H, Lymph % (Auto) 2.7 L, [place] % (Auto) 2.1, Eos % (Auto) 0.0, Baso % (Auto) 0.1, Absolute Neuts (auto) 12.7 H, Absolute Lymphs (auto) 0.37 L, Nucleated RBC % 0.9 Micro: Microbiology 10/05/23 23:30 Wound - Arm Right Skin and Soft Tissue MRSA/MSSA (PCR - Final 10/05/23 18:25 Stool Stool Occult Blood (YAMINI) - Final Occult Blood Positive ABG Data ABG results: ABG 10/05/23 18:44 Specimen Type MARTIN Sample Site Not entered O2 % 30.0 VBG pH 7.53 H VBG pO2 114 H VBG HCO3 26 VBG Total CO2 27 VBG O2 Sat (Calc) 99 H VBG Base Excess 3 POC Mix VBG pCO2 Pt Tmp 31.4 L O2 Delivery Device BiPAP Clinical Comments 02/04 12 30% Imaging Radiology Impression Brain CT 10/05/23 19:22 IMPRESSION: Mild atrophy and periventricular white matter ischemic changes. No evidence for acute intracranial hemorrhage Electronically Signed: Michael Jim MD at 19:44 EDT , Chest CTA 10/05/23 19:22 IMPRESSION: Chronic interstitial changes more pronounced in the lower lobes with associated bronchiectatic changes ASHD without evidence for aortic aneurysm. No evidence for pulmonary embolus Other findings as above Electronically Signed: Michael Jim MD at 19:57 EDT , Abdomen/Pelvis CTA 10/06/23 09:42 IMPRESSION: Diffuse fatty infiltration of the liver. Findings suggest a small layering gallstones along the dependent portion of the gallbladder lumen. Stable infrarenal abdominal aortic aneurysm with anterior mural clot. Sigmoid diverticulosis. Prostatic enlargement with indentation of the bladder base. Electronically Signed: Fernando Sidhu MD at 14:39 EDT , Assessment and Plan . Assessment and plan: Critical Care Time: The entirety of this encounter was done via Telemedicine
--- NOTE | 2023-10-06 15:44 | CON.PCM.CC_ITS ---
HPI Consult Data Date of Consult: 10/06/23 HPI Narrative HPI Narrative: 83 yo wm with complex medical hx including COPD, Chronic Hypercapneic/Hypoxemic resp failure, Lung Ca, Cavitary mass with fungus ball, Recent GI bleed, Recent covid infection presented once again for increased sob. Pt also had near fall given sob. ED labs showed he was anemic compared to recent admit. He was also sob and placed on NIPPV and treated for COPD exac. Given elevated WBC And lactate patient was placed on antibxs. He was given 2 units of pRBCs this afternoon and appears better. He was sent down for CTA of abd(hx of AA thrombus). After getting contrast pt noticed chest tightness with EKG changes. Now resolved. Ryder pending. [facility] Medical History Depression Myocardial infarct Coronary artery disease Pulmonary neoplasm Pulmonary embolus Wears glasses Wears dentures Cancer Anxiety Abrasion History of steroid therapy Prostate disease High cholesterol Injury of back Syncope History of weight loss Former smoker COPD (chronic obstructive pulmonary disease) On home oxygen therapy Shortness of breath on exertion Chronic cough History of stress test Cardiology follow-up encounter Chest pain No pertinent family history 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 Nocturnal hypoxemia Chronic hypoxemic respiratory failure Bronchiectasis Prostate CA CAD (coronary artery disease) HLD (hyperlipidemia) Benign essential HTN Home Medications ?Medication ?Instructions ?Recorded ?Last Taken ?Type aspirin 81 mg chewable tablet 81 mg PO QPM heart health 12/29/14 10/05/23 History nitroglycerin 0.4 mg sublingual 0.4 mg sublingual Q5M PRN Chest 12/29/14 1 Week Ago History tablet Pain ~07/02/20 lorazepam 1 mg tablet (Ativan) 0.5 - 1 mg PO TID PRN Anxiety 07/09/20 03/25/23 History polyethylene glycol 3350 17 gram 17 g PO DAILY PRN Constipation 07/09/20 03/24/23 History oral powder packet (Miralax) acetaminophen 325 mg tablet 650 mg PO Q4H PRN Pain 08/13/20 03/24/23 History (Tylenol) oxycodone 5 mg tablet 5 mg PO Q6H PRN PAIN AND BREATHING 02/05/22 10/05/23 History fluticasone propionate 230 2 puff inhalation BID breathing 08/07/22 03/25/23 History mcg-salmeterol 21 mcg/actuation HFA inhaler (Advair HFA) atorvastatin 40 mg tablet 40 mg PO QHS cholesterol 03/25/23 10/04/23 History duloxetine 30 mg capsule,delayed 30 mg PO QPM DEPRESSION 03/25/23 10/04/23 History release tamsulosin 0.4 mg capsule 0.4 mg PO QPM BLADDER/ PROSTATE 03/25/23 10/04/23 History tiotropium bromide 2.5 2 puff inhalation DAILY copd 03/25/23 10/05/23 History mcg/actuation mist for inhalation (Spiriva Respimat) ezetimibe 10 mg tablet 10 mg PO DAILY cholesterol 09/28/23 10/05/23 History guaifenesin 600 mg tablet, 1,200 mg PO Q12H PRN cough 09/28/23 10/05/23 History extended release 12 hr (Mucinex) levalbuterol tartrate 45 2 puff inhalation Q4H PRN PRN 09/28/23 Unknown History mcg/actuation aerosol inhaler wheezing amoxicillin 875 mg-potassium 1 tab PO BID #10 tabs 09/30/23 10/05/23 Rx clavulanate 125 mg tablet fluconazole 100 mg tablet 100 mg PO DAILY #14 tabs 09/30/23 10/05/23 Rx prednisone 20 mg tablet 40 mg (2 x 20 mg) PO DAILY #10 tabs 09/30/23 10/05/23 Rx apixaban 5 mg tablet (Eliquis) 5 mg PO Q12H 10/05/23 10/05/23 History Allergy/AdvReac Type Severity Reaction Status Date / Time isosorbide (From dur) Allergy Other-patient Verified 10/05/23 17:24 blacks out Family History Other No pertinent family history Surgical History Hx of CABG Hx of heart artery stent Hx of transurethral resection of prostate Hx of pneumonectomy Hx of CABG No pertinent past surgical history Social History Smoking Status: Former smoker Tobacco: How many years used: 45 Electronic Cigarette Use: not used how long ago did patient quit smokin, second hand exposure: Yes alcohol intake: never substance use type: does not use ROS ROS Narrative as per HPI Objective Data Objective Data Vital Signs: Vital Signs Last response 3 Temperature 36.7 C 10/06/23 12:45 Temperature Source Temporal 10/06/23 12:45 Pulse Rate 95 10/06/23 14:00 Respiratory Rate 28 H 10/06/23 14:00 Respiratory Effort Non-Labored, Short of Breath 10/06/23 12:00 Respiratory Depth Normal 10/06/23 12:00 Respiratory Pattern Normal 10/06/23 12:00 Blood Pressure 155/87 H 10/06/23 14:00 Blood Pressure Mean 109 10/06/23 14:00 Blood Pressure Source Monitor 10/06/23 14:00 Blood Pressure Position Semi-Fowlers 10/06/23 14:00 Blood Pressure Location Left Arm 10/06/23 14:00 Pulse Ox 100 10/06/23 14:00 Oxygen Delivery Method Nasal Cannula 10/06/23 14:00 Oxygen Flow Rate (L/min) 4 10/06/23 14:00 Fraction of Inspired Oxygen (FIO2) 30 10/05/23 19:43 I&O: I&O Last 24 Hours 3 10/05/23 10/06/23 10/06/23 23:59 11:59 23:59 Intake Total 280 / 280 1545 / 2588.08 1043.08 / 2588.08 Output Total 300 / 400 100 / 400 Balance 280 / 280 1245 / 2188.08 943.08 / 2188.08 I&O: Total Stay 3 10/05/23 17:23 thru 10/06/23 15:28 Intake Total 2868.08 Output Total 400 Balance 2468.08 Current Meds Ordered / Administered: Current meds ordered / Administered 3 Generic Name Dose Route Start Last Admin Trade Name Freq PRN Reason Stop Dose Admin Sodium Chloride 1,000 mls @ 125 mls/hr 10/05/23 23:20 10/06/23 15:27 IV 125 mls/hr .Q8H YAZAN Infusion Pantoprazole Sodium 40 mg/ 110 mls @ 330 mls/hr 10/05/23 23:20 10/06/23 10:19 Sodium Chloride IV Infused Q12 YAZAN Infusion Vancomycin IV-PHARMACY TO DOSE 500 mls @ 250 mls/hr 10/06/23 09:42 1 each/ Sodium Chloride IV X1 PRN Rx to Dose Protocol Piperacillin Sod/Tazobactam 50 mls @ 12.5 mls/hr 10/06/23 09:45 10/06/23 14:24 Sod 3.375 gm/ Sodium Chloride IV 12.5 mls/hr Q8 YAZAN Administration Vancomycin HCl 750 mg/ Sodium 265 mls @ 250 mls/hr 10/06/23 10:30 10/06/23 15:28 Chloride IV Infused Q12H YAZAN Infusion Ipratropium [place] 0.5 mg 10/06/23 00:00 10/06/23 11:28 Ipratropium 0.5 Mg/2.5 Ml Solution INHALATION 0.5 mg Q4HWA.RT YAZAN Administration Nitroglycerin 0.4 mg 10/06/23 14:06 Nitroglycerin (Inpatient Use) 0.4 Mg Tab.Subl SL Q5M PRN CARDIAC/CHEST PAIN Ondansetron HCl 4 mg 10/05/23 23:20 Ondansetron 4 Mg/2 Ml Vial IV Q8H PRN PRN NAUSEA/VOMITING Vancomycin Protocol 1 lab 10/07/23 08:00 Vancomycin Trough/Random Due [facility] 10/07/23 12:00 DAILY [facility] Physical Exam Narrative awake, tachypneic but not distressed Pupils = o/p:clear CV: RRR Chest: diminished througout, gooda/e, no wheezing Abd: obese, soft, NT Ext: no c/e/ C Neuro:non-focal Skin: no rashes Medical Records Data Medical Nutrition Assessment Dietitian: Malnutrition Criteria Met Start: 10/06/23 13:53 Freq: Status: Active Protocol: Document 10/06/23 13:53 SB (Rec: 10/06/23 13:53 SB [id number]) Nutrition Malnutrition Evidence of Malnutrition Exists Yes Malnutrition (severe): Acute Illness/Injury Evidenced By Suboptimal Energy Intake ( Severe),Weight Loss (Severe) Intake Problem Inadequate Oral Intake Etiology related to GI dysfunction Signs/Symptoms as evidence by NPO. Status Active Problem Clinical Problem Acute Disease or Injury Related Malnutrition Etiology severe related to inadequate oral intake and altered GI status Signs/Symptoms as evidence by 2.4% weight loss x 1 week and meeting <50% of estimated energy needs x 1 week. Status Active Problem Recommendation Dietitian Recommendations/Changes Recommend liberalized regular diet, as diet is advanced. Reviewed and approved by Chela John RD, LD Lab / Micro Data 10/06/23 15:15 10/06/23 03:55 Labs: Laboratory Results - last 24 hr 10/05/23 17:41: WBC 20.3 H, RBC 2.91 L, Hgb 7.9 L, Hct 25.7 L, MCV 88.3, MCH 27.1, MCHC 30.7 L, RDW Std Deviation 52.5 H, RDW Coeff of Estelita 16.5 H, Plt Count 343, MPV 10.4, Immature Gran % (Auto) 1.600 H, Neut % (Auto) 94.6 H, Lymph % (Auto) 1.9 L, [place] % (Auto) 1.8, Eos % (Auto) 0.0, Baso % (Auto) 0.1, Absolute Neuts (auto) 19.2 H, Absolute Lymphs (auto) 0.38 L, Nucleated RBC % 0.3, Differential Comment SEE COMMENT, Platelet Estimate ADEQUATE, RBC Morphology N CHROM, Polychromasia RARE, Hypochromasia 1+, Anisocytosis RARE, Macrocytosis RARE, Ovalocytes RARE, Sodium 134 L, Potassium 8.4 H*, Chloride 104, Carbon Dioxide 26.0, Anion Gap 4 L, BUN 35 H, Creatinine 1.09, Estim Creat Clear Calc 56.61, Est GFR (MDRD) Af Amer 84, Est GFR (MDRD) Non-Af 69, BUN/Creatinine Ratio 32.1 H, Glucose 166 H, Calcium 8.4 L, Troponin I High Sens 65, B-Natriuretic Peptide 53.7 10/05/23 18:25: Blood Type O NEGATIVE, Antibody Screen NEGATIVE 10/05/23 19:40: Lactic Acid 3.4 H* 10/05/23 21:35: POC Glucose 115 H 10/05/23 22:29: Hgb 6.8 L, Sodium 138, Potassium 4.4, Chloride 105, Carbon Dioxide 27.0, Anion Gap 6, BUN 33 H, Creatinine 1.01, Estim Creat Clear Calc 61.09, Est GFR (MDRD) Af Amer 91, Est GFR (MDRD) Non-Af 75, BUN/Creatinine Ratio 32.7 H, Glucose 87, Calcium 8.9 10/06/23 01:00: Lactic Acid 2.1 H* 10/06/23 03:55: WBC 20.1 H, RBC 2.55 L, Hgb 6.7 L, Hct 22.9 L, MCV 89.8, MCH 26.3 L, MCHC 29.3 L, RDW Std Deviation 51.7 H, RDW Coeff of Estelita 16.1 H, Plt Count 294, MPV 9.7, Immature Gran % (Auto) 1.400 H, Neut % (Auto) 94.9 H, Lymph % (Auto) 2.2 L, [place] % (Auto) 1.4, Eos % (Auto) 0.0, Baso % (Auto) 0.1, Absolute Neuts (auto) 19.1 H, Absolute Lymphs (auto) 0.44 L, Nucleated RBC % 0.3, Sodium 138, Potassium 4.5, Chloride 106, Carbon Dioxide 28.0, Anion Gap 4 L, BUN 36 H, Creatinine 1.22, Estim Creat Clear Calc 50.58, Est GFR (MDRD) Af Amer 73, Est GFR (MDRD) Non-Af 61, BUN/Creatinine Ratio 29.5 H, Glucose 166 H, Calcium 8.4 L 10/06/23 06:00: Lactic Acid 1.9 10/06/23 09:09: Hgb 6.5 L, B-Natriuretic Peptide 75.9, Blood Type O NEGATIVE, Antibody Screen NEGATIVE, Crossmatch See Detail 10/06/23 14:15: Troponin I High Sens 55 10/06/23 15:15: WBC 13.6 H, RBC 3.10 L, Hgb 8.3 L, Hct 26.5 L, MCV 85.5, MCH 26.8 L, MCHC 31.3 L D, RDW Std Deviation 50.8 H, RDW Coeff of Estelita 16.8 H, Plt Count 277, MPV 9.7, Immature Gran % (Auto) 1.800 H, Neut % (Auto) 93.3 H, Lymph % (Auto) 2.7 L, [place] % (Auto) 2.1, Eos % (Auto) 0.0, Baso % (Auto) 0.1, Absolute Neuts (auto) 12.7 H, Absolute Lymphs (auto) 0.37 L, Nucleated RBC % 0.9 Micro: Microbiology 10/05/23 23:30 Wound - Arm Right Skin and Soft Tissue MRSA/MSSA (PCR - Final 10/05/23 18:25 Stool Stool Occult Blood (YAMINI) - Final Occult Blood Positive ABG Data ABG results: ABG 10/05/23 18:44 Specimen Type MARTIN Sample Site Not entered O2 % 30.0 VBG pH 7.53 H VBG pO2 114 H VBG HCO3 26 VBG Total CO2 27 VBG O2 Sat (Calc) 99 H VBG Base Excess 3 POC Mix VBG pCO2 Pt Tmp 31.4 L O2 Delivery Device BiPAP Clinical Comments 02/04 12 30% Imaging Radiology Impression Brain CT 10/05/23 19:22 IMPRESSION: Mild atrophy and periventricular white matter ischemic changes. No evidence for acute intracranial hemorrhage Electronically Signed: Michael Jim MD at 19:44 EDT , Chest CTA 10/05/23 19:22 IMPRESSION: Chronic interstitial changes more pronounced in the lower lobes with associated bronchiectatic changes ASHD without evidence for aortic aneurysm. No evidence for pulmonary embolus Other findings as above Electronically Signed: Michael Jim MD at 19:57 EDT , Abdomen/Pelvis CTA 10/06/23 09:42 IMPRESSION: Diffuse fatty infiltration of the liver. Findings suggest a small layering gallstones along the dependent portion of the gallbladder lumen. Stable infrarenal abdominal aortic aneurysm with anterior mural clot. Sigmoid diverticulosis. Prostatic enlargement with indentation of the bladder base. Electronically Signed: Fernando Sidhu MD at 14:39 EDT , Assessment and Plan . Assessment and plan: 1. Acute blood loss Anemia: complicated hx. 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 s/p 2 units. AC held. Serial H/H ordered. On PPI. GI following 2. ? Sepsis: suspect lactate elevated 2/2 GI bleed. Cultures sent. On empiric antibxs. ID following 3. Resp Failure: Acute on chronic. Hypoxemic/hypercapneic. Now back to 4 L NC(baseline) and off NIPPV. Suspect increase in deadspace from hyvolemia/GI bleed. 4. COPD exac: ?. Stop steroids. Continue duonebs. 5. GI bleed: s/p 2 units. GI consulted. H/H ordered. On PPI 6. 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 PX: SCDs Marco Antonio Day MD Critical Care Time: 60 minutes The entirety of this encounter was done via Telemedicine
--- NOTE | 2023-10-06 15:52 | CASEMGMT ---
Readmission Note: Index: 09/28/23-09/30/23. Dx: Hypoxia, GI Bleed Readmission: 10/05/23. Dx: RF From index admission, the pt was discharged home with his with the resumption of palliative care at home. Pt also wears home oxygen through [facility]. This RN CM to pt room at this time. Pt at bedside. Pt states that he wears 4L continuously at home via [place]. However, Michelle ([facility] Liaison) states that the pt current order is 2L continuous. Pt arrives to [facility] with SOB. Pt states that he was able to wear his oxygen at home accordingly. Pt states that he was aware of the DC diet recommendations given on the DC instructions. Pt states that he was able to get and take his new prescriptions of Amoxicillin, Prednisone, and Fluconazole. Pt states that he was supposed to f/u with his PCP yesterday but was unable d/t his SOB and arrival eat [facility]. Pt states that his appt with Dr. Moreno was scheduled for the . Moving forward, the pt states that he is unsure of what he will need or qualify for. Per the RN during ICU rounds, the pt is very sick. The pt has had recent falls at home and has been having black, tarry stools with clots. At this time, the plan is TBD depending on how the pt progresses in the hospital. CM and SW to follow.
--- NOTE | 2023-10-06 16:28 | PCM.CONS.C ---
Assessment & Plan Assessment/Plan (1) Angina at rest: PLAN: Patient developed acute chest discomfort with marked ST segment depressions in anterior lateral leads during a CT scan today. The symptoms resolved spontaneously. The patient does have a known history of coronary artery disease status post remote bypass graft surgery and subsequent stenting. He also has a history of COPD and acute on chronic respiratory insufficiency with hypoxemia. And he has a history of recurrent GI bleed with a hemoglobin of 6.5 today. After transfusion of 2 units is up to 8.3. I believe this constellation of comorbidities is what the primary etiology of his ischemic event is. We cannot anticoagulate him he is already failed reattempted anticoagulation. He is asymptomatic at this point in time. The better part of valor is to correct what we can by supplementing his oxygen and getting his hemoglobin replaced as you are currently doing. I would also recommend that we add a beta-bernard to decrease his heart rate and therefore decrease myocardial oxygen demand. The patient is intolerant of nitrates in the past resulting in syncopal spells. If further enzymes are checked I do expect them to increase. The patient had an echocardiogram done today which preliminary report showed his ejection fraction was in the 60% range and really unchanged from previous echo with no significant wall motion abnormality. This would suggest that his event today was related to myocardial oxygen demand and demand ischemia. I discussed this in detail with the patient and his and they voiced understanding. (2) CAD (coronary artery disease): QUALIFIERS: Associated angina: with other forms of angina Coronary Disease-Associated Artery/Lesion type: [place] artery [place] vs. transplanted heart: makah heart Qualified Code(s): I25.118 - Atherosclerotic heart disease of makah coronary artery with other forms of angina pectoris PLAN: Patient is status post bypass graft surgery in 1999 at [facility]. He does not know the location of his target vessels he does know he had a three-vessel bypass. He separately was told that 2 of the bypasses failed approximately 2 years later and at that time he went to the [facility] and was treated with stenting. Please see #1 above for further details. His secondary risk factor should be continued to be treated as has been done in his home environment. (3) Acute and chronic respiratory failure with hypoxia: PLAN: The patient is subsequently being replaced with oxygen therapy he is on home oxygen for his chronic obstructive pulmonary disease. 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 (4) Anemia: QUALIFIERS: Anemia type: unspecified type Qualified Code(s): D64.9 - Anemia, unspecified PLAN: Patient's hemoglobin is being replaced with the packed red cells. Last hemoglobin this afternoon was 8.3 up from 6.5. Further evaluation and treatment is being managed by the primary service and Dr. Moreno PLAN: Plan 1. Metoprolol 25 mg twice daily the patient's medical regiment. 2. Continue baby aspirin as tolerated. 3. If recurrent symptoms would treat with sublingual nitro with the patient in the recumbent position as needed. HPI Consult Data Date of Consult: 10/06/23 HPI Narrative Reason for Consultation: Chest pain and EKG changes. HPI Narrative: OSWALDO MENDIOLA, is a 83 M who presents with chest discomfort while he was undergoing a CT scan for GI bleeding today. His EKG showed ST segment depression in the anterior lateral leads. He had some ST segment depression of a nonspecific nature on the resting EKG prior to this event. This EKG showed new deeper ST segment depressions consistent with an ischemic event. The patient is currently resting comfortably in his bed. The chest discomfort lasted for less than 30 minutes. It resolved spontaneously without intervention. The patient's hemoglobin was 6.5 earlier today. He received 2 units of blood and was rechecked at 8.5 this afternoon. He has a history of recurrent GI bleeding he was previously discharged just recently had been restarted on Eliquis and bled again. The patient is EKG shows normal sinus rhythm and his telemetry does not show any atrial fibrillation that I see recorded. He has recently 10 days ago had COVID complicated by strep pneumonia. The patient also has a history of anxiety and is under a lot of stress not only with his own personal medical situation but his son-in-law is undergoing LVAD implant at the [facility]. The patient underwent bypass graft surgery in 1999 following that approximately 2 years later had stenting procedures done at the [facility]. He has not had any interventions in the last several years by his and his report. The patient does carry history of squamous cell carcinoma of the lung and COPD. Patient also has a history of diabetes mellitus. He remains on broad-spectrum antibiotics since his readmission October 06, 2023. The patient is also on home oxygen therapy. [facility] Medical History Depression Myocardial infarct Coronary artery disease Pulmonary neoplasm Pulmonary embolus Wears glasses Wears dentures Cancer Anxiety Abrasion History of steroid therapy Prostate disease High cholesterol Injury of back Syncope History of weight loss Former smoker COPD (chronic obstructive pulmonary disease) On home oxygen therapy Shortness of breath on exertion Chronic cough History of stress test Cardiology follow-up encounter Chest pain No pertinent family history 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 Nocturnal hypoxemia Chronic hypoxemic respiratory failure Bronchiectasis Prostate CA CAD (coronary artery disease) HLD (hyperlipidemia) Benign essential HTN Home Medications ?Medication ?Instructions ?Recorded ?Last Taken ?Type aspirin 81 mg chewable tablet 81 mg PO QPM heart health 12/29/14 10/05/23 History nitroglycerin 0.4 mg sublingual 0.4 mg sublingual Q5M PRN Chest 12/29/14 1 Week Ago History tablet Pain ~07/02/20 lorazepam 1 mg tablet (Ativan) 0.5 - 1 mg PO TID PRN Anxiety 07/09/20 03/25/23 History polyethylene glycol 3350 17 gram 17 g PO DAILY PRN Constipation 07/09/20 03/24/23 History oral powder packet (Miralax) acetaminophen 325 mg tablet 650 mg PO Q4H PRN Pain 08/13/20 03/24/23 History (Tylenol) oxycodone 5 mg tablet 5 mg PO Q6H PRN PAIN AND BREATHING 02/05/22 10/05/23 History fluticasone propionate 230 2 puff inhalation BID breathing 08/07/22 03/25/23 History mcg-salmeterol 21 mcg/actuation HFA inhaler (Advair HFA) atorvastatin 40 mg tablet 40 mg PO QHS cholesterol 03/25/23 10/04/23 History duloxetine 30 mg capsule,delayed 30 mg PO QPM DEPRESSION 03/25/23 10/04/23 History release tamsulosin 0.4 mg capsule 0.4 mg PO QPM BLADDER/ PROSTATE 03/25/23 10/04/23 History tiotropium bromide 2.5 2 puff inhalation DAILY copd 03/25/23 10/05/23 History mcg/actuation mist for inhalation (Spiriva Respimat) ezetimibe 10 mg tablet 10 mg PO DAILY cholesterol 09/28/23 10/05/23 History guaifenesin 600 mg tablet, 1,200 mg PO Q12H PRN cough 09/28/23 10/05/23 History extended release 12 hr (Mucinex) levalbuterol tartrate 45 2 puff inhalation Q4H PRN PRN 09/28/23 Unknown History mcg/actuation aerosol inhaler wheezing amoxicillin 875 mg-potassium 1 tab PO BID #10 tabs 09/30/23 10/05/23 Rx clavulanate 125 mg tablet fluconazole 100 mg tablet 100 mg PO DAILY #14 tabs 09/30/23 10/05/23 Rx prednisone 20 mg tablet 40 mg (2 x 20 mg) PO DAILY #10 tabs 09/30/23 10/05/23 Rx apixaban 5 mg tablet (Eliquis) 5 mg PO Q12H 10/05/23 10/05/23 History Allergy/AdvReac Type Severity Reaction Status Date / Time isosorbide (From Imdur) Allergy Other-patient Verified 10/05/23 17:24 blacks out Family History Other No pertinent family history Surgical History Hx of CABG Hx of heart artery stent Hx of transurethral resection of prostate Hx of pneumonectomy Hx of CABG No pertinent past surgical history Social History Smoking Status: Former smoker Tobacco: How many years used: 45 Electronic Cigarette Use: not used how long ago did patient quit smokin, second hand exposure: Yes alcohol intake: never substance use type: does not use ROS Constitutional Constitutional: Reports as per HPI Eyes Eyes: Reports systems reviewed and no addt'l complaints, except as documented ENT HEENT: Reports systems reviewed and no addt'l complaints, except as documented Cardiovascular Cardiovascular: Reports as per HPI Respiratory/Chest Respiratory/Chest: Reports as per HPI Gastrointestinal Gastrointestinal: Reports as per HPI Genitourinary Genitourinary: Reports systems reviewed and no addt'l complaints, except as documented Musculoskeletal Musculoskeletal: Reports systems reviewed and no addt'l complaints, except as documented Integumentary Integumentary: Reports systems reviewed and no addt'l complaints, except as documented Neurologic Neurologic: Reports systems reviewed and no addt'l complaints, except as documented Psychiatric Psychiatric: Reports systems reviewed and no addt'l complaints, except as documented Endocrine Endocrinology: Reports systems reviewed and no addt'l complaints, except as documented Hematologic/Lymphatic Hematologic/Lymphatic: Reports systems reviewed and no addt'l complaints, except as documented Allergic/Immunologic Allergic/Immunologic: Reports systems reviewed and no addt'l complaints, except as documented Physical Exam Const alert and oriented x3 HEENT normocephalic Eyes EOMs intact bilaterally Neck no JVD Carotids: Negative for bruit Chest Chest Narrative: Increased AP diameter Resp normal respiratory effort Auscultation: rales right base and diminished lung sounds left lower Cardio Cardio Narrative: Increased AP diameter with distant heart tones. Rate: tachycardic Rhythm: regular rhythm Heart Sounds: S1 normal, S2 normal and murmur systolic I/ soft; Negative for click or gallop GI soft to palpation Extremity no pedal edema Extremity Narrative: Left ankle is deviated secondary to trauma. General Extremity: Negative for edema Skin General Skin Exam: ecchymosis Neuro Neuro Narrative: Alert and oriented x 3 Psych mental status grossly normal Risk Stratification Risk Stratification Applicable: Yes Age >/= 65: Yes >/= 3 CAD Risk Factors (HTN, HLD, DM, family hx of CAD, or current smoker): Yes Aspirin Use in the Past 7 Days: Yes Severe Angina (>/= episodes in 24 hours): No EKG ST Changes >/= 0.5mm: Yes Positive Cardiac Marker: No PETER Risk Stratification Score: 4 PETER % Risk: 20% Risk Charges/Coding Visit Charges Inpatient E&M: 54849 Init Hosp L3 Objective Data Vital Signs: Vital Signs Temp Pulse Resp BP Pulse Ox O2 Del Method O2 Flow Rate 98.1 F 95 28 H 155/87 H 100 Nasal Cannula 4 10/06/23 12:45 10/06/23 14:00 10/06/23 14:00 10/06/23 14:00 10/06/23 14:00 10/06/23 14:00 10/06/23 14:00 FiO2 30 10/05/23 19:43 Oxygen Flow Rate (L/min) 4 Oxygen Delivery Method Nasal Cannula Weight: 173 lb 15.115 oz Body Mass Index (BMI) 24.3 Intake & Output: Intake and Output for Last 24 Hours 10/04/23 10/05/23 10/06/23 23:59 23:59 23:59 Intake Total 280 / 280 2588. / 2588.08 Output Total 400 / 400 Balance 280 / 280 2188. / 2188.08 Lab / Micro Data Attestation: I reviewed the patient's lab results. 10/06/23 15:15 10/06/23 03:55 Labs: Laboratory Results - last 24 hr 10/05/23 17:41: WBC 20.3 H, RBC 2.91 L, Hgb 7.9 L, Hct 25.7 L, MCV 88.3, MCH 27.1, MCHC 30.7 L, RDW Std Deviation 52.5 H, RDW Coeff of Estelita 16.5 H, Plt Count 343, MPV 10.4, Immature Gran % (Auto) 1.600 H, Neut % (Auto) 94.6 H, Lymph % (Auto) 1.9 L, Monroe % (Auto) 1.8, Eos % (Auto) 0.0, Baso % (Auto) 0.1, Absolute Neuts (auto) 19.2 H, Absolute Lymphs (auto) 0.38 L, Nucleated RBC % 0.3, Differential Comment SEE COMMENT, Platelet Estimate ADEQUATE, RBC Morphology N CHROM, Polychromasia RARE, Hypochromasia 1+, Anisocytosis RARE, Macrocytosis RARE, Ovalocytes RARE, Sodium 134 L, Potassium 8.4 H*, Chloride 104, Carbon Dioxide 26.0, Anion Gap 4 L, BUN 35 H, Creatinine 1.09, Estim Creat Clear Calc 56.61, Est GFR (MDRD) Af Amer 84, Est GFR (MDRD) Non-Af 69, BUN/Creatinine Ratio 32.1 H, Glucose 166 H, Calcium 8.4 L, Troponin I High Sens 65, B-Natriuretic Peptide 53.7 10/05/23 18:25: Blood Type O NEGATIVE, Antibody Screen NEGATIVE 10/05/23 19:40: Lactic Acid 3.4 H* 10/05/23 21:35: POC Glucose 115 H 10/05/23 22:29: Hgb 6.8 L, Sodium 138, Potassium 4.4, Chloride 105, Carbon Dioxide 27.0, Anion Gap 6, BUN 33 H, Creatinine 1.01, Estim Creat Clear Calc 61.09, Est GFR (MDRD) Af Amer 91, Est GFR (MDRD) Non-Af 75, BUN/Creatinine Ratio 32.7 H, Glucose 87, Calcium 8.9 10/06/23 01:00: Lactic Acid 2.1 H* 10/06/23 03:55: WBC 20.1 H, RBC 2.55 L, Hgb 6.7 L, Hct 22.9 L, MCV 89.8, MCH 26.3 L, MCHC 29.3 L, RDW Std Deviation 51.7 H, RDW Coeff of Estelita 16.1 H, Plt Count 294, MPV 9.7, Immature Gran % (Auto) 1.400 H, Neut % (Auto) 94.9 H, Lymph % (Auto) 2.2 L, Monroe % (Auto) 1.4, Eos % (Auto) 0.0, Baso % (Auto) 0.1, Absolute Neuts (auto) 19.1 H, Absolute Lymphs (auto) 0.44 L, Nucleated RBC % 0.3, Sodium 138, Potassium 4.5, Chloride 106, Carbon Dioxide 28.0, Anion Gap 4 L, BUN 36 H, Creatinine 1.22, Estim Creat Clear Calc 50.58, Est GFR (MDRD) Af Amer 73, Est GFR (MDRD) Non-Af 61, BUN/Creatinine Ratio 29.5 H, Glucose 166 H, Calcium 8.4 L 10/06/23 06:00: Lactic Acid 1.9 10/06/23 09:09: Hgb 6.5 L, B-Natriuretic Peptide 75.9, Blood Type O NEGATIVE, Antibody Screen NEGATIVE, Crossmatch See Detail 10/06/23 14:15: Troponin I High Sens 55 10/06/23 15:15: WBC 13.6 H, RBC 3.10 L, Hgb 8.3 L, Hct 26.5 L, MCV 85.5, MCH 26.8 L, MCHC 31.3 L D, RDW Std Deviation 50.8 H, RDW Coeff of Estelita 16.8 H, Plt Count 277, MPV 9.7, Immature Gran % (Auto) 1.800 H, Neut % (Auto) 93.3 H, Lymph % (Auto) 2.7 L, [place] % (Auto) 2.1, Eos % (Auto) 0.0, Baso % (Auto) 0.1, Absolute Neuts (auto) 12.7 H, Absolute Lymphs (auto) 0.37 L, Nucleated RBC % 0.9 Micro: Microbiology 10/05/23 23:30 Wound - Arm Right Skin and Soft Tissue MRSA/MSSA (PCR - Final 10/05/23 18:25 Stool Stool Occult Blood (YAMINI) - Final Occult Blood Positive ABG Data ABG results: ABG 10/05/23 18:44 Specimen Type MARTIN Sample Site Not entered O2 % 30.0 VBG pH 7.53 H VBG pO2 114 H VBG HCO3 26 VBG Total CO2 27 VBG O2 Sat (Calc) 99 H VBG Base Excess 3 POC Mix VBG pCO2 Pt Tmp 31.4 L O2 Delivery Device BiPAP Clinical Comments 02/04 12 30% Rhythm Strip Rhythm Strip: Sinus Tach Rate: 100 Cardiology Labs/Tests 10/05/23 17:41: WBC 20.3 H, RBC 2.91 L, Hgb 7.9 L, Hct 25.7 L, MCV 88.3, MCH 27.1, MCHC 30.7 L, Plt Count 343, MPV 10.4, Immature Gran % (Auto) 1.600 H, Neut % (Auto) 94.6 H, Lymph % (Auto) 1.9 L, [place] % (Auto) 1.8, Eos % (Auto) 0.0, Baso % (Auto) 0.1, Absolute Neuts (auto) 19.2 H, Nucleated RBC % 0.3, Sodium 134 L, Potassium 8.4 H*, Chloride 104, Carbon Dioxide 26.0, Anion Gap 4 L, BUN 35 H, Creatinine 1.09, Est GFR (MDRD) Af Amer 84, Est GFR (MDRD) Non-Af 69, BUN/Creatinine Ratio 32.1 H, Glucose 166 H, Calcium 8.4 L, B-Natriuretic Peptide 53.7 10/05/23 18:44: VBG pH 7.53 H, VBG pO2 114 H, VBG HCO3 26, VBG O2 Sat (Calc) 99 H, VBG Base Excess 3 10/05/23 19:40: Lactic Acid 3.4 H* 10/05/23 22:29: Hgb 6.8 L, Sodium 138, Potassium 4.4, Chloride 105, Carbon Dioxide 27.0, Anion Gap 6, BUN 33 H, Creatinine 1.01, Est GFR (MDRD) Af Amer 91, Est GFR (MDRD) Non-Af 75, BUN/Creatinine Ratio 32.7 H, Glucose 87, Calcium 8.9 10/06/23 01:00: Lactic Acid 2.1 H* 10/06/23 03:55: WBC 20.1 H, RBC 2.55 L, Hgb 6.7 L, Hct 22.9 L, MCV 89.8, MCH 26.3 L, MCHC 29.3 L, Plt Count 294, MPV 9.7, Immature Gran % (Auto) 1.400 H, Neut % (Auto) 94.9 H, Lymph % (Auto) 2.2 L, [place] % (Auto) 1.4, Eos % (Auto) 0.0, Baso % (Auto) 0.1, Absolute Neuts (auto) 19.1 H, Nucleated RBC % 0.3, Sodium 138, Potassium 4.5, Chloride 106, Carbon Dioxide 28.0, Anion Gap 4 L, BUN 36 H, Creatinine 1.22, Est GFR (MDRD) Af Amer 73, Est GFR (MDRD) Non-Af 61, BUN/Creatinine Ratio 29.5 H, Glucose 166 H, Calcium 8.4 L 10/06/23 06:00: Lactic Acid 1.9 10/06/23 09:09: Hgb 6.5 L, B-Natriuretic Peptide 75.9 10/06/23 15:15: WBC 13.6 H, RBC 3.10 L, Hgb 8.3 L, Hct 26.5 L, MCV 85.5, MCH 26.8 L, MCHC 31.3 L D, Plt Count 277, MPV 9.7, Immature Gran % (Auto) 1.800 H, Neut % (Auto) 93.3 H, Lymph % (Auto) 2.7 L, [place] % (Auto) 2.1, Eos % (Auto) 0.0, Baso % (Auto) 0.1, Absolute Neuts (auto) 12.7 H, Nucleated RBC % 0.9 Rhythm: EKG: ECHO: Stress Test: Cardiac Cath: PCI: CT Surgery: Holter monitor: EPS: PPM: CXR: Chest CT Scan: Radiography Diagnostic Testing: Radiology Impression Brain CT 10/05/23 19:22 IMPRESSION: Mild atrophy and periventricular white matter ischemic changes. No evidence for acute intracranial hemorrhage Electronically Signed: Michael Jim MD at 19:44 EDT , Chest CTA 10/05/23 19:22 IMPRESSION: Chronic interstitial changes more pronounced in the lower lobes with associated bronchiectatic changes ASHD without evidence for aortic aneurysm. No evidence for pulmonary embolus Other findings as above Electronically Signed: Michael Jim MD at 19:57 EDT , Abdomen/Pelvis CTA 10/06/23 09:42 IMPRESSION: Diffuse fatty infiltration of the liver. Findings suggest a small layering gallstones along the dependent portion of the gallbladder lumen. Stable infrarenal abdominal aortic aneurysm with anterior mural clot. Sigmoid diverticulosis. Prostatic enlargement with indentation of the bladder base. Electronically Signed: Fernando Sidhu MD at 14:39 EDT ,
[2023-10-06 16:44] LABS: Troponin-I HS 66 pg/mL (3.0-78.0)
--- NOTE | 2023-10-06 16:47 | PN_ITS ---
Subjective Subjective Patient seen and examined. He was admitted with a complaint of shortness of breath and fall at home. He had been walking to the toilet and fell down because he was short of breath. He subsequently started having rectal bleeding. Hemoglobin was 6.8 and dropped 6.5 this morning. He is being managed for acute GI bleed. Patient did not look well this morning and looked pale. He was tachycardic and tachypneic. Patient is very anxious at baseline. He denied any fever or chills, palpitations, dizziness, nausea or vomiting. He is still having rectal bleeding with associated clots. WBC was elevated at 20 on admission. He was given a dose of IV vancomycin and Zosyn in the ED but on admission this was not continued. Objective Data Objective Data Vital Signs: Vital Signs Temp Pulse Resp BP Pulse Ox O2 Del Method O2 Flow Rate 98.1 F 97 18 126/88 H 100 Nasal Cannula 4 10/06/23 12:45 10/06/23 16:00 10/06/23 16:00 10/06/23 16:00 10/06/23 16:00 10/06/23 16:00 10/06/23 16:00 FiO2 30 10/05/23 19:43 Oxygen Flow Rate (L/min) 4 Oxygen Delivery Method Nasal Cannula Weight: 173 lb 15.115 oz Body Mass Index (BMI) 24.3 Intake & Output: Intake and Output for Last 24 Hours 10/04/23 10/05/23 10/06/23 23:59 23:59 23:59 Intake Total 280 / 280 2588.08 / 2588.08 Output Total 400 / 400 Balance 280 / 280 2188.08 / 2188.08 Medical Nutrition Assessment Dietitian: Malnutrition Criteria Met Start: 10/06/23 13:53 Freq: Status: Active Protocol: Document 10/06/23 13:53 SB (Rec: 10/06/23 13:53 SB [id number]) Nutrition Malnutrition Evidence of Malnutrition Exists Yes Malnutrition (severe): Acute Illness/Injury Evidenced By Suboptimal Energy Intake ( Severe),Weight Loss (Severe) Intake Problem Inadequate Oral Intake Etiology related to GI dysfunction Signs/Symptoms as evidence by NPO. Status Active Problem Clinical Problem Acute Disease or Injury Related Malnutrition Etiology severe related to inadequate oral intake and altered GI status Signs/Symptoms as evidence by 2.4% weight loss x 1 week and meeting <50% of estimated energy needs x 1 week. Status Active Problem Recommendation Dietitian Recommendations/Changes Recommend liberalized regular diet, as diet is advanced. Reviewed and approved by Chela John RD, LD Lab / Micro Data 10/06/23 15:15 10/06/23 03:55 Labs: Laboratory Results - last 24 hr 10/05/23 17:41: WBC 20.3 H, RBC 2.91 L, Hgb 7.9 L, Hct 25.7 L, MCV 88.3, MCH 27.1, MCHC 30.7 L, RDW Std Deviation 52.5 H, RDW Coeff of Estelita 16.5 H, Plt Count 343, MPV 10.4, Immature Gran % (Auto) 1.600 H, Neut % (Auto) 94.6 H, Lymph % (Auto) 1.9 L, [place] % (Auto) 1.8, Eos % (Auto) 0.0, Baso % (Auto) 0.1, Absolute Neuts (auto) 19.2 H, Absolute Lymphs (auto) 0.38 L, Nucleated RBC % 0.3, Differential Comment SEE COMMENT, Platelet Estimate ADEQUATE, RBC Morphology N CHROM, Polychromasia RARE, Hypochromasia 1+, Anisocytosis RARE, Macrocytosis RARE, Ovalocytes RARE, Sodium 134 L, Potassium 8.4 H*, Chloride 104, Carbon Dioxide 26.0, Anion Gap 4 L, BUN 35 H, Creatinine 1.09, Estim Creat Clear Calc 56.61, Est GFR (MDRD) Af Amer 84, Est GFR (MDRD) Non-Af 69, BUN/Creatinine Ratio 32.1 H, Glucose 166 H, Calcium 8.4 L, Troponin I High Sens 65, B-Natriuretic Peptide 53.7 10/05/23 18:25: Blood Type O NEGATIVE, Antibody Screen NEGATIVE 10/05/23 19:40: Lactic Acid 3.4 H* 10/05/23 21:35: POC Glucose 115 H 10/05/23 22:29: Hgb 6.8 L, Sodium 138, Potassium 4.4, Chloride 105, Carbon Dioxide 27.0, Anion Gap 6, BUN 33 H, Creatinine 1.01, Estim Creat Clear Calc 61.09, Est GFR (MDRD) Af Amer 91, Est GFR (MDRD) Non-Af 75, BUN/Creatinine Ratio 32.7 H, Glucose 87, Calcium 8.9 10/06/23 01:00: Lactic Acid 2.1 H* 10/06/23 03:55: WBC 20.1 H, RBC 2.55 L, Hgb 6.7 L, Hct 22.9 L, MCV 89.8, MCH 26.3 L, MCHC 29.3 L, RDW Std Deviation 51.7 H, RDW Coeff of Estelita 16.1 H, Plt Count 294, MPV 9.7, Immature Gran % (Auto) 1.400 H, Neut % (Auto) 94.9 H, Lymph % (Auto) 2.2 L, [place] % (Auto) 1.4, Eos % (Auto) 0.0, Baso % (Auto) 0.1, Absolute Neuts (auto) 19.1 H, Absolute Lymphs (auto) 0.44 L, Nucleated RBC % 0.3, Sodium 138, Potassium 4.5, Chloride 106, Carbon Dioxide 28.0, Anion Gap 4 L, BUN 36 H, Creatinine 1.22, Estim Creat Clear Calc 50.58, Est GFR (MDRD) Af Amer 73, Est GFR (MDRD) Non-Af 61, BUN/Creatinine Ratio 29.5 H, Glucose 166 H, Calcium 8.4 L 10/06/23 06:00: Lactic Acid 1.9 10/06/23 09:09: Hgb 6.5 L, B-Natriuretic Peptide 75.9, Blood Type O NEGATIVE, Antibody Screen NEGATIVE, Crossmatch See Detail 10/06/23 14:15: Troponin I High Sens 55 10/06/23 15:15: WBC 13.6 H, RBC 3.10 L, Hgb 8.3 L, Hct 26.5 L, MCV 85.5, MCH 26.8 L, MCHC 31.3 L D, RDW Std Deviation 50.8 H, RDW Coeff of Estelita 16.8 H, Plt Count 277, MPV 9.7, Immature Gran % (Auto) 1.800 H, Neut % (Auto) 93.3 H, Lymph % (Auto) 2.7 L, [place] % (Auto) 2.1, Eos % (Auto) 0.0, Baso % (Auto) 0.1, Absolute Neuts (auto) 12.7 H, Absolute Lymphs (auto) 0.37 L, Nucleated RBC % 0.9 10/06/23 16:10: Troponin I High Sens 66 Micro: Microbiology 10/05/23 23:30 Wound - Arm Right Skin and Soft Tissue MRSA/MSSA (PCR - Final 10/05/23 18:25 Stool Stool Occult Blood (YAMINI) - Final Occult Blood Positive ABG Data ABG results: ABG 10/05/23 18:44 Specimen Type MARTIN Sample Site Not entered O2 % 30.0 VBG pH 7.53 H VBG pO2 114 H VBG HCO3 26 VBG Total CO2 27 VBG O2 Sat (Calc) 99 H VBG Base Excess 3 POC Mix VBG pCO2 Pt Tmp 31.4 L O2 Delivery Device BiPAP Clinical Comments 02/04 12 30% Radiography Diagnostic Testing: Radiology Impression Brain CT 10/05/23 19:22 IMPRESSION: Mild atrophy and periventricular white matter ischemic changes. No evidence for acute intracranial hemorrhage Electronically Signed: Michael Jim MD at 19:44 EDT , Chest CTA 10/05/23 19:22 IMPRESSION: Chronic interstitial changes more pronounced in the lower lobes with associated bronchiectatic changes ASHD without evidence for aortic aneurysm. No evidence for pulmonary embolus Other findings as above Electronically Signed: Michael Jim MD at 19:57 EDT , Abdomen/Pelvis CTA 10/06/23 09:42 IMPRESSION: Diffuse fatty infiltration of the liver. Findings suggest a small layering gallstones along the dependent portion of the gallbladder lumen. Stable infrarenal abdominal aortic aneurysm with anterior mural clot. Sigmoid diverticulosis. Prostatic enlargement with indentation of the bladder base. Electronically Signed: Fernando Sidhu MD at 14:39 EDT , Echocardiogram 10/06/23 14:05 Interpretation Summary Normal LV size. Left ventricular systolic function is lower limits of normal. Mild focal aortic valve calcification. Ordering Physician: Elizabeth Santamaria Referring Physician: MD Maria G Dillan Performed By: Ro Hernandez RDCS Rhythm Strip Rhythm Strip: Sinus Tach Physical Exam Const alert Constitutional Narrative: very anxious General Appearance: cooperative HEENT normocephalic, head/scalp atraumatic, moist oral mucous membranes and oropharynx normal Eyes PERRL and EOMs intact bilaterally Neck no lymphadenopathy and supple Lymph Lymphatic: no lymphadenopathy noted and no lymphedema noted Resp Resp Narrative: diminished breath sounds bibasally, bibasal crackles, on 4L of oxygen. Effort and Inspection: tachypneic Cardio S1 normal heart sound, S2 normal heart sound and no murmurs Rate: tachycardic GI normal to inspection, nondistended, normoactive bowel sounds, soft to palpation and non-tender Extremity normal capillary refill, no clubbing, cyanosis or edema and no calf tenderness General Extremity: no tenderness to palpation of joints or extremities Skin General Skin Exam: no breakdown Neuro CN's II-XII intact bilaterally, no focal motor deficits and no sensory deficits noted Motor Exam: general weakness Psych thought process normal and cooperative Mood & Affect: anxious Assessment & Plan Assessment/Plan (1) Anemia: QUALIFIERS: Anemia type: unspecified type Qualified Code(s): D 64.9 - Anemia, unspecified (2) Acidosis, lactic: (3) GI bleed: (4) Sepsis: PLAN: Plan #Acute anemia due to lower GI bleed * Patient's hemoglobin on admission was 7.1 and went down to 6.8. Subsequently dropped to 6.5. 2 units of blood were ordered and patient was transfused 2 units of packed red blood cells. * Repeat hemoglobin is 8.3. Patient is still bleeding per rectum with associated clots. * GI consulted. Per discussion with GI CT angiogram of the abdomen and pelvis done to rule out any small bowel bleeding and this was negative for that but did show abnormal aortic thrombus which is chronic * Patient currently n.p.o. for colonoscopy and possible EGD * Been hydrated with IV fluids normal saline at 150 cc/h * On IV pantoprazole 40 mg twice daily. * #Sepsis * Etiology is not clear. Patient however had elevated lactic acid and had elevated white cell count of 20 on admission. He is on his baseline 4 L of oxygen though he was initiated on BiPAP in the ED because he was very short of breath. I think anxiety may also have driven this as well as the acute on chronic anemia and he is back on his baseline 4 L of oxygen. * He was given a dose of IV vancomycin and Zosyn in the ED but this was not continued on admission. * IV vancomycin and Zosyn ordered. * Continue hydration with IV fluids. Lactic acid trending downwards with fluids. * critical care on board * #Chest pain\ * Patient developed chest pain after he came back from the CT a of the abdomen and pelvis. EKG done showed evidence of subendocardial injury and incomplete left bundle branch block which was new. * Troponins were ordered which are negative x 2. Cardiology consulted and patient placed on sublingual nitroglycerin. * Cardiology consulted. Unable to give anticoagulation due to patient's severe anemia. * Sublingual nitroglycerin as needed. Already on high intensity statin though he is n.p.o. now * 2D echo showed normal left ventricular size with EF of 49% * #Chronic respiratory failure due to COPD * On admission patient was placed on BiPAP but he was weaned down to his baseline 4 L of oxygen. Due to concern about COPD exacerbation he was started on IV Solu-Medrol. I elected to discontinue this steroids this morning as it can worsen the GI bleed and I do not think the patient has COPD exacerbation as he is down to his baseline 4 L of oxygen and his symptoms can be explained by the acute on chronic anemia. * Continue breathing treatments bronchodilators. Titrate oxygen to maintain saturation above 90%. * #History of chronic aortic mural thrombus: Eliquis on hold due to GI bleed. Will monitor. 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 #History of lung cancer: Has known squamous cell carcinoma of the left lower lobe. Currently stable. Will monitor. # History of depression and anxiety: Cymbalta on hold DVT prophylaxis: SCDs Charges/Coding Visit Charges Inpatient E&M: 81068 Subs Hosp L3
--- NOTE | 2023-10-06 17:08 | EX.PCM.CON.G ---
HPI Consult Data Date of Consult: 10/06/23 HPI Narrative Reason for Consultation: GI bleed HPI Narrative: OSWALDO MENDIOLA, is a 83 M who presented to the emergency room overnight with chief complaint of shortness of breath. Patient was trying to walk to the toilet as he fell down due to being short of breath. He did sustain bruising to his right upper extremity however no other injuries were noted at this time. Patient has a significant past medical history of lung cancer, COPD, COVID infection 10 days ago and gastrointestinal bleeding from both upper and lower GI tract. His upper endoscopy displayed: Patchy, white plaques were found in the upper third of the esophagus. Biopsies were taken with a cold forceps for histology. Verification of patient identification for the specimen was done. Estimated blood loss was minimal. No gross lesions were noted in the entire examined stomach. Two 5 mm angiodysplastic lesions with bleeding were found in the duodenal bulb. Coagulation for hemostasis using heater probe was successful. Estimated blood loss was minimal. Impression: - Esophageal plaques were found, consistent with candidiasis. Biopsied. - No gross lesions in the entire stomach. - Two bleeding angiodysplastic lesions in the duodenum. Treated with a heater probe. His colonoscopy displayed: Findings: The perianal and digital rectal examinations were normal. Multiple large angiodysplastic lesions with bleeding were found in the rectum. Coagulation for hemostasis using argon plasma at 0.4 liters/minute and 30 govea was successful. Estimated blood loss was minimal. Internal hemorrhoids were found during retroflexion. The hemorrhoids were Grade II (internal hemorrhoids that prolapse but reduce spontaneously). Multiple small and large-mouthed diverticula were found in the recto-sigmoid colon, sigmoid colon and descending colon. Stool was found in the rectum, in the recto-sigmoid colon, in the sigmoid colon and in the cecum. An 8 mm polyp was found in the sigmoid colon. The polyp was sessile. The polyp was removed with a hot snare. Resection and retrieval were complete. Verification of patient identification for the specimen was done. Estimated blood loss was minimal. A 7 mm polyp was found in the cecum. The polyp was sessile. The polyp was removed with a cold snare. Resection and retrieval were complete. Verification of patient identification for the specimen was done. Estimated blood loss was minimal. A 12 mm polyp was found in the cecum. The polyp was sessile. The polyp was removed with a hot snare. Resection and retrieval were complete. Verification of patient identification for the specimen was done. Estimated blood loss was minimal. Impression: - Preparation of the colon was fair. - Multiple bleeding colonic angiodysplastic lesions. Treated with argon plasma coagulation (APC). - Internal hemorrhoids. - Diverticulosis in the recto-sigmoid colon, in the sigmoid colon and in the descending colon. - Stool in the rectum, in the recto-sigmoid colon, in the sigmoid colon and in the cecum. - One 8 mm polyp in the sigmoid colon, removed with a hot snare. Resected and retrieved. - One 7 mm polyp in the cecum, removed with a cold snare. Resected and retrieved. - One 12 mm polyp in the cecum, removed with a hot snare. Resected and retrieved. Recommendation: - Repeat colonoscopy in 1 year for surveillance. - Continue present medications. He was restarted on Eliquis and now patient reports having dark stools. CBC revealed an elevated white blood cell count of 20.3, hemoglobin 7.9 which went down to 6.5, hematocrit 25.7, platelets of 343. BMP reveals a sodium of 134, potassium 8.4 (hemolyzed), chloride 104 bicarb 26 BUN 35 creatinine 1.09 and glucose 166, lactate 3.[address] chest reveals a cavitated pleural lesion on the left lateral lower lobe that is consistent with his history of lung cancer. He also has sternotomy wires due to history of coronary artery bypass graft. He was placed on BiPAP. He started developing chest pain and was seen by cardiology. He underwent an echocardiogram which showed ejection fraction of 60%. He did have some ST segment depressions and was thought to be secondary to demand ischemia. 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 [facility] Medical History Depression Myocardial infarct Coronary artery disease Pulmonary neoplasm Pulmonary embolus Wears glasses Wears dentures Cancer Anxiety Abrasion History of steroid therapy Prostate disease High cholesterol Injury of back Syncope History of weight loss Former smoker COPD (chronic obstructive pulmonary disease) On home oxygen therapy Shortness of breath on exertion Chronic cough History of stress test Cardiology follow-up encounter Chest pain No pertinent family history 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 Nocturnal hypoxemia Chronic hypoxemic respiratory failure Bronchiectasis Prostate CA CAD (coronary artery disease) HLD (hyperlipidemia) Benign essential HTN Home Medications ?Medication ?Instructions ?Recorded ?Last Taken ?Type aspirin 81 mg chewable tablet 81 mg PO QPM heart health 12/29/14 10/05/23 History nitroglycerin 0.4 mg sublingual 0.4 mg sublingual Q5M PRN Chest 12/29/14 1 Week Ago History tablet Pain ~07/02/20 lorazepam 1 mg tablet (Ativan) 0.5 - 1 mg PO TID PRN Anxiety 07/09/20 03/25/23 History polyethylene glycol 3350 17 gram 17 g PO DAILY PRN Constipation 07/09/20 03/24/23 History oral powder packet (Miralax) acetaminophen 325 mg tablet 650 mg PO Q4H PRN Pain 08/13/20 03/24/23 History (Tylenol) oxycodone 5 mg tablet 5 mg PO Q6H PRN PAIN AND BREATHING 02/05/22 10/05/23 History fluticasone propionate 230 2 puff inhalation BID breathing 08/07/22 03/25/23 History mcg-salmeterol 21 mcg/actuation HFA inhaler (Advair HFA) atorvastatin 40 mg tablet 40 mg PO QHS cholesterol 03/25/23 10/04/23 History duloxetine 30 mg capsule,delayed 30 mg PO QPM DEPRESSION 03/25/23 10/04/23 History release tamsulosin 0.4 mg capsule 0.4 mg PO QPM BLADDER/ PROSTATE 03/25/23 10/04/23 History tiotropium bromide 2.5 2 puff inhalation DAILY copd 03/25/23 10/05/23 History mcg/actuation mist for inhalation (Spiriva Respimat) ezetimibe 10 mg tablet 10 mg PO DAILY cholesterol 09/28/23 10/05/23 History guaifenesin 600 mg tablet, 1,200 mg PO Q12H PRN cough 09/28/23 10/05/23 History extended release 12 hr (Mucinex) levalbuterol tartrate 45 2 puff inhalation Q4H PRN PRN 09/28/23 Unknown History mcg/actuation aerosol inhaler wheezing amoxicillin 875 mg-potassium 1 tab PO BID #10 tabs 09/30/23 10/05/23 Rx clavulanate 125 mg tablet fluconazole 100 mg tablet 100 mg PO DAILY #14 tabs 09/30/23 10/05/23 Rx prednisone 20 mg tablet 40 mg (2 x 20 mg) PO DAILY #10 tabs 09/30/23 10/05/23 Rx apixaban 5 mg tablet (Eliquis) 5 mg PO Q12H 10/05/23 10/05/23 History Allergy/AdvReac Type Severity Reaction Status Date / Time isosorbide (From Imdur) Allergy Other-patient Verified 10/05/23 17:24 blacks out Family History Other No pertinent family history Surgical History Hx of CABG Hx of heart artery stent Hx of transurethral resection of prostate Hx of pneumonectomy Hx of CABG No pertinent past surgical history Social History Smoking Status: Former smoker Tobacco: How many years used: 45 Electronic Cigarette Use: not used how long ago did patient quit smokin, second hand exposure: Yes alcohol intake: never substance use type: does not use ROS Constitutional Constitutional: Denies chills or fever(s) Eyes Eyes: Denies blurry vision ENT HEENT: Reports abnormal hearing; Denies sore throat Cardiovascular Cardiovascular: Denies chest pain Respiratory/Chest Respiratory/Chest: Reports shortness of breath at rest and wheezing Gastrointestinal Gastrointestinal: Reports melena; Denies diarrhea Genitourinary Genitourinary: Denies hematuria Musculoskeletal Musculoskeletal: Denies back pain Integumentary Integumentary: Denies jaundice Neurologic Neurologic: Denies abnormal speech Psychiatric Psychiatric: Reports anxiety Hematologic/Lymphatic Hematologic/Lymphatic: Reports anemia Physical Exam Const alert Constitutional Narrative: very anxious General Appearance: cooperative HEENT normocephalic, head/scalp atraumatic, moist oral mucous membranes and oropharynx normal Eyes PERRL and EOMs intact bilaterally Neck no lymphadenopathy and supple Lymph Lymphatic: no lymphadenopathy noted and no lymphedema noted Resp Resp Narrative: diminished breath sounds bibasally, bibasal crackles, on 4L of oxygen. Effort and Inspection: tachypneic Cardio S1 normal heart sound, S2 normal heart sound and no murmurs Rate: tachycardic GI normal to inspection, nondistended, normoactive bowel sounds, soft to palpation and non-tender Extremity normal capillary refill, no clubbing, cyanosis or edema and no calf tenderness General Extremity: no tenderness to palpation of joints or extremities Skin General Skin Exam: no breakdown Neuro CN's II-XII intact bilaterally, no focal motor deficits and no sensory deficits noted Motor Exam: general weakness Psych thought process normal and cooperative Mood & Affect: anxious Medical Records Data Medical Nutrition Assessment Dietitian: Malnutrition Criteria Met Start: 10/06/23 13:53 Freq: Status: Active Protocol: Document 10/06/23 13:53 SB (Rec: 10/06/23 13:53 SB [id number]) Nutrition Malnutrition Evidence of Malnutrition Exists Yes Malnutrition (severe): Acute Illness/Injury Evidenced By Suboptimal Energy Intake ( Severe),Weight Loss (Severe) Intake Problem Inadequate Oral Intake Etiology related to GI dysfunction Signs/Symptoms as evidence by NPO. Status Active Problem Clinical Problem Acute Disease or Injury Related Malnutrition Etiology severe related to inadequate oral intake and altered GI status Signs/Symptoms as evidence by 2.4% weight loss x 1 week and meeting <50% of estimated energy needs x 1 week. Status Active Problem Recommendation Dietitian Recommendations/Changes Recommend liberalized regular diet, as diet is advanced. Reviewed and approved by Chela John RD, LD Lab / Micro Data 10/06/23 15:15 10/06/23 03:55 Labs: Laboratory Results - last 24 hr 10/05/23 17:41: WBC 20.3 H, RBC 2.91 L, Hgb 7.9 L, Hct 25.7 L, MCV 88.3, MCH 27.1, MCHC 30.7 L, RDW Std Deviation 52.5 H, RDW Coeff of Estelita 16.5 H, Plt Count 343, MPV 10.4, Immature Gran % (Auto) 1.600 H, Neut % (Auto) 94.6 H, Lymph % (Auto) 1.9 L, [place] % (Auto) 1.8, Eos % (Auto) 0.0, Baso % (Auto) 0.1, Absolute Neuts (auto) 19.2 H, Absolute Lymphs (auto) 0.38 L, Nucleated RBC % 0.3, Differential Comment SEE COMMENT, Platelet Estimate ADEQUATE, RBC Morphology N CHROM, Polychromasia RARE, Hypochromasia 1+, Anisocytosis RARE, Macrocytosis RARE, Ovalocytes RARE, Sodium 134 L, Potassium 8.4 H*, Chloride 104, Carbon Dioxide 26.0, Anion Gap 4 L, BUN 35 H, Creatinine 1.09, Estim Creat Clear Calc 56.61, Est GFR (MDRD) Af Amer 84, Est GFR (MDRD) Non-Af 69, BUN/Creatinine Ratio 32.1 H, Glucose 166 H, Calcium 8.4 L, Troponin I High Sens 65, B-Natriuretic Peptide 53.7 10/05/23 18:25: Blood Type O NEGATIVE, Antibody Screen NEGATIVE 10/05/23 19:40: Lactic Acid 3.4 H* 10/05/23 21:35: POC Glucose 115 H 10/05/23 22:29: Hgb 6.8 L, Sodium 138, Potassium 4.4, Chloride 105, Carbon Dioxide 27.0, Anion Gap 6, BUN 33 H, Creatinine 1.01, Estim Creat Clear Calc 61.09, Est GFR (MDRD) Af Amer 91, Est GFR (MDRD) Non-Af 75, BUN/Creatinine Ratio 32.7 H, Glucose 87, Calcium 8.9 10/06/23 01:00: Lactic Acid 2.1 H* 10/06/23 03:55: WBC 20.1 H, RBC 2.55 L, Hgb 6.7 L, Hct 22.9 L, MCV 89.8, MCH 26.3 L, MCHC 29.3 L, RDW Std Deviation 51.7 H, RDW Coeff of Estelita 16.1 H, Plt Count 294, MPV 9.7, Immature Gran % (Auto) 1.400 H, Neut % (Auto) 94.9 H, Lymph % (Auto) 2.2 L, [place] % (Auto) 1.4, Eos % (Auto) 0.0, Baso % (Auto) 0.1, Absolute Neuts (auto) 19.1 H, Absolute Lymphs (auto) 0.44 L, Nucleated RBC % 0.3, Sodium 138, Potassium 4.5, Chloride 106, Carbon Dioxide 28.0, Anion Gap 4 L, BUN 36 H, Creatinine 1.22, Estim Creat Clear Calc 50.58, Est GFR (MDRD) Af Amer 73, Est GFR (MDRD) Non-Af 61, BUN/Creatinine Ratio 29.5 H, Glucose 166 H, Calcium 8.4 L 10/06/23 06:00: Lactic Acid 1.9 10/06/23 09:09: Hgb 6.5 L, B-Natriuretic Peptide 75.9, Blood Type O NEGATIVE, Antibody Screen NEGATIVE, Crossmatch See Detail 10/06/23 14:15: Troponin I High Sens 55 10/06/23 15:15: WBC 13.6 H, RBC 3.10 L, Hgb 8.3 L, Hct 26.5 L, MCV 85.5, MCH 26.8 L, MCHC 31.3 L D, RDW Std Deviation 50.8 H, RDW Coeff of [place]elita 16.8 H, Plt Count 277, MPV 9.7, Immature Gran % (Auto) 1.800 H, Neut % (Auto) 93.3 H, Lymph % (Auto) 2.7 L, [place] % (Auto) 2.1, Eos % (Auto) 0.0, Baso % (Auto) 0.1, Absolute Neuts (auto) 12.7 H, Absolute Lymphs (auto) 0.37 L, Nucleated RBC % 0.9 10/06/23 16:10: Troponin I High Sens 66 Micro: Microbiology 10/05/23 23:30 Wound - Arm Right Skin and Soft Tissue MRSA/MSSA (PCR - Final 10/05/23 18:25 Stool Stool Occult Blood (YAMINI) - Final Occult Blood Positive ABG Data ABG results: ABG 10/05/23 18:44 Specimen Type MARTIN Sample Site Not entered O2 % 30.0 VBG pH 7.53 H VBG pO2 114 H VBG HCO3 26 VBG Total CO2 27 VBG O2 Sat (Calc) 99 H VBG Base Excess 3 POC Mix VBG pCO2 Pt Tmp 31.4 L O2 Delivery Device BiPAP Clinical Comments 02/04 12 30% Rhythm Strip Rhythm Strip: Sinus Tach Rate: 100 Imaging Radiology Impression Brain CT 10/05/23 19:22 IMPRESSION: Mild atrophy and periventricular white matter ischemic changes. No evidence for acute intracranial hemorrhage Electronically Signed: Michael Jim MD at 19:44 EDT , Chest CTA 10/05/23 19:22 IMPRESSION: Chronic interstitial changes more pronounced in the lower lobes with associated bronchiectatic changes ASHD without evidence for aortic aneurysm. No evidence for pulmonary embolus Other findings as above Electronically Signed: Michael Jim MD at 19:57 EDT , Abdomen/Pelvis CTA 10/06/23 09:42 IMPRESSION: Diffuse fatty infiltration of the liver. Findings suggest a small layering gallstones along the dependent portion of the gallbladder lumen. Stable infrarenal abdominal aortic aneurysm with anterior mural clot. Sigmoid diverticulosis. Prostatic enlargement with indentation of the bladder base. Electronically Signed: Fernando Sidhu MD at 14:39 EDT , Echocardiogram 10/06/23 14:05 Interpretation Summary Normal LV size. Left ventricular systolic function is lower limits of normal. Mild focal aortic valve calcification. Ordering Physician: Elizabeth Santamaria Referring Physician: MD Maria G Dillan Performed By: Ro Hernandez, RDCS Assessment & Plan Assessment/Plan (1) Pulmonary embolus: (2) Pulmonary neoplasm: (3) Major hemoptysis: PLAN: Plan Patient is an 83-year-old male who presented to [facility] ED with , shortness of breath and dyspnea. Acute blood loss anemia. Differential diagnosis does include upper GI bleed with rapid transit, lower GI bleed secondary to ischemic colitis, diverticular bleed, hemorrhoidal disease. Recommendation upper and lower endoscopy to evaluate his upper and lower GI tract. The CT angiography of the chest and the abdomen pelvis did not show any signs of acute or chronic GI blood loss. 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 He also had multiple polyps that were removed previously so there are multiple reasons for him to bleed in the setting of anticoagulation. He should undergo repeat upper and lower endoscopy. I do not know if patient wants to take a prep if not then hopefully be able to upper endoscopy and possibly enemas. Charges/Coding Visit Charges Inpatient E&M: 22377 Init Hosp L3
[2023-10-06] MEDS: Metoprolol Tartrate 25 MG Tablet PO (17:15)
[2023-10-06 17:27] LABS: Absolute Neutrophil Count 12.6 X10^3/uL (2.0-7.7); Basophil# 0.01 X10^3/uL; Basophil% 0.1 % (0-1); Hematocrit 25.3 % (40-54); Hemoglobin 7.8 g/dL (13.0-16.5); Lymphocyte % 2.9 % (19-41); Mean Corp Hgb Conc 30.8 g/dL (32-36); Mean Corpuscular Hgb 26.2 pg (27.0-32.0); Mean Corpuscular Volume 84.9 fL (80-94); Mean Platelet Vol. 9.6 fl (6.2-12.0); Monocyte# 0.62 X10^3/uL; Monocyte% 4.5 % (0-10); NRBC Flagged by Analyzer 1.2 % (0-5); Neutrophil # 12.64 X10^3/uL (2.7-7.7); Neutrophil % 90.8 % (47-70); POSITIVE DIFFERENTIAL YES; Platelet Count 275 K/mm3 (150-450); RBC Distribution Width CV 17.1 % (11.6-14.6); RBC Distribution Width SD 51.7 fl (35.1-43.9); Red Blood Count 2.98 M/mm3 (4.6-6.2); White Blood Count 13.9 K/mm3 (4.4-11.0)
[2023-10-06] MEDS: Bisacodyl 5 MG Tablet 20 MG PO (18:40)
[2023-10-06] MEDS: Polyethylene Glycol 3350 BOWEL PREP PO (20:08)
[2023-10-06 20:44] LABS: Troponin-I HS 96 pg/mL (3.0-78.0)
--- NOTE | 2023-10-06 22:00 | PCM.HOSP.N ---
Hospitalist Note Patient with onset tachypnea, crackles, increased work of breathing. Noted cardiac history but no sarika HF history. Administered aggressive IVFs and also PRBC x 2 units. Will administer lasix 40 mg IV x 1. Last troponin from series noted 96. CTA chest without acute findings. Will repeat additional troponin. Given GI bleed current presentation would be limited in ability to administer antiplt/anticoagulation.
[2023-10-06] MEDS: Furosemide 40 MG/4 ML Vial IV (22:24)
[2023-10-06 23:21] LABS: Absolute Lymphocyte Count 0.85 X10^3/uL (0.83-4.51); Absolute Neutrophil Count 21.3 X10^3/uL (2.0-7.7); Basophil# 0.04 X10^3/uL; Basophil% 0.2 % (0-1); Hematocrit 26.6 % (40-54); Hemoglobin 8.1 g/dL (13.0-16.5); Lymphocyte # 0.85 X10^3/ul (0.83-4.51); Lymphocyte % 3.5 % (19-41); Mean Corp Hgb Conc 30.5 g/dL (32-36); Mean Corpuscular Hgb 26.9 pg (27.0-32.0); Mean Corpuscular Volume 88.4 fL (80-94); Mean Platelet Vol. 9.6 fl (6.2-12.0); Monocyte# 1.83 X10^3/uL; Monocyte% 7.5 % (0-10); NRBC Flagged by Analyzer 1.6 % (0-5); Neutrophil # 21.27 X10^3/uL (2.7-7.7); Neutrophil % 86.5 % (47-70); POSITIVE DIFFERENTIAL YES; Platelet Count 324 K/mm3 (150-450); RBC Distribution Width CV 18.1 % (11.6-14.6); RBC Distribution Width SD 56.9 fl (35.1-43.9); Red Blood Count 3.01 M/mm3 (4.6-6.2); White Blood Count 24.6 K/mm3 (4.4-11.0)
[2023-10-06] MEDS: Metoclopramide 10 MG/2 ML Vial 5 MG IV (23:37)
[2023-10-06 23:47] LABS: ALB/GLOB Ratio 0.9 RATIO (0.9-2.4); AST(SGOT) 25 U/L (15-37); Alanine Aminotransfer ALT/SGPT 22 U/L (16-61); Albumin, Serum 2.4 g/dL (3.2-5.0); Alkaline Phosphatase 54 U/L (45-117); Anion Gap 8 (5-15); BUN 45 mg/dL (7-18); BUN/Creat Ratio 29.4 RATIO (10-20); Calcium,Total 7.5 mg/dL (8.5-10.1); Chloride 111 mmol/L (98-107); Creatinine, Serum 1.53 mg/dL (0.70-1.30); EST Glomerular Filtration Rate 47 mL/min (>60); Est Glom Filt Rate - Afr Amer 56 mL/min (>60); Estimated Creatinine Clearance 40.33 ml/min; Globulin 2.6 g/dL (2.2-4.2); Glucose 165 mg/dL (74-106); Magnesium 2.2 mg/dL (1.6-2.6); Potassium 4.7 mmol/L (3.5-5.1); Sodium Level 142 mmol/L (136-145)
[2023-10-06 23:48] LABS: Phosphorus 6.1 mg/dL (2.5-4.9)
[2023-10-07] VITALS (39 sets, daily range): BP systolic 97–185; BP diastolic 40–111; PULSE 66–111; RESP 12–37; TEMP 35.6–37.4; O2SAT 93–100; BMI 24.6
[2023-10-07 00:05] LABS: Differential Indicated SCAN CRITERIA MET
[2023-10-07 00:14] LABS: Anisocytosis 2+; Differential Comment SCANNED; Platelet Estimate ADEQUATE (ADEQ)
[2023-10-07 00:15] LABS: Ovalocyte 2+; Polychromasia 2+
--- NOTE | 2023-10-07 01:49 | PCM.HOSP.N ---
Hospitalist Note Repeat Hgb 8.1, RN discussed current status also with Dr. Lara who requested additional 1 u PRBC and he also ordered an additional lasxi 40 mg IV x 1 following.
[2023-10-07] MEDS: 0.9% Saline Lock 10 ML Syringe IV (01:56)
[2023-10-07] MEDS: Furosemide 40 MG/4 ML Vial IV (03:13)
--- NOTE | 2023-10-07 04:47 | CPS ---
Patient requested to be taken off bipap
[2023-10-07] MEDS: Metoclopramide 10 MG/2 ML Vial 5 MG IV ×4 (05:07→22:33)
[2023-10-07] MEDS: Piperacil/Tazobactam 3.375 GM in 0.9% Normal Saline (50mL MB+) 50 ML IV ×3 (05:07→20:32)
[2023-10-07 05:26] LABS: Absolute Neutrophil Count 22.4 X10^3/uL (2.0-7.7); Basophil# 0.03 X10^3/uL; Basophil% 0.1 % (0-1); Hemoglobin 9.3 g/dL (13.0-16.5); Lymphocyte % 2.8 % (19-41); Mean Corp Hgb Conc 32.1 g/dL (32-36); Mean Corpuscular Hgb 27.4 pg (27.0-32.0); Mean Corpuscular Volume 85.5 fL (80-94); Mean Platelet Vol. 9.8 fl (6.2-12.0); Monocyte# 1.75 X10^3/uL; Monocyte% 6.9 % (0-10); NRBC Flagged by Analyzer 1.6 % (0-5); Neutrophil # 22.43 X10^3/uL (2.7-7.7); Neutrophil % 88.6 % (47-70); POSITIVE DIFFERENTIAL YES; Platelet Count 310 K/mm3 (150-450); RBC Distribution Width CV 17.2 % (11.6-14.6); RBC Distribution Width SD 51.9 fl (35.1-43.9); Red Blood Count 3.39 M/mm3 (4.6-6.2); White Blood Count 25.3 K/mm3 (4.4-11.0)
[2023-10-07 05:56] LABS: Differential Indicated SCAN CRITERIA MET
[2023-10-07 06:11] LABS: Anion Gap 11 (5-15); BUN 48 mg/dL (7-18); BUN/Creat Ratio 32.9 RATIO (10-20); Calcium,Total 7.4 mg/dL (8.5-10.1); Chloride 108 mmol/L (98-107); Creatinine, Serum 1.46 mg/dL (0.70-1.30); EST Glomerular Filtration Rate 49 mL/min (>60); Est Glom Filt Rate - Afr Amer 60 mL/min (>60); Estimated Creatinine Clearance 42.26 ml/min; Glucose 152 mg/dL (74-106); Potassium 4.1 mmol/L (3.5-5.1); Sodium Level 142 mmol/L (136-145); Troponin-I HS 78 pg/mL (3.0-78.0)
[2023-10-07 06:42] LABS: Phosphorus 6.8 mg/dL (2.5-4.9)
[2023-10-07] MEDS: Ipratropium 0.5 MG/2.5 ML SOLUTION INHALATION ×2 (06:47→22:59)
[2023-10-07 07:09] LABS: Differential Comment SCANNED
[2023-10-07] MEDS: Metoprolol Tartrate 25 MG Tablet PO ×4 (07:50→22:33)
--- NOTE | 2023-10-07 08:52 | PN.CARD_ITS ---
Subjective Subjective The patient is tachypneic in the bed this morning. He is questioning whether he should be on his steroids which she is chronically on in his home environment. He did have frequent PVCs last evening we gave him an additional unit of blood and his hemoglobin is up to 9.3 this morning. His calcium is down and his phosphate is elevated. The patient is echocardiogram showed low normal LV function with no wall motion abnormalities and no significant valvular heart disease yesterday. His troponins were also negative x 4 sets with the maximum being 96. Given his heart rate still above 100 bpm I would recommend we increase his metoprolol and he does have increasing white blood cells on his lab work. Objective Data Vital Signs: Vital Signs Temp Pulse Resp BP Pulse Ox O2 Del Method O2 Flow Rate 96.1 F L 108 H 24 H 123/77 H 94 Nasal Cannula 3 10/07/23 01:54 10/07/23 07:50 10/07/23 07:00 10/07/23 07:50 10/07/23 08:29 10/07/23 08:29 10/07/23 08:29 FiO2 30 10/07/23 02:00 Oxygen Flow Rate (L/min) 3 Oxygen Delivery Method Nasal Cannula Weight: 176 lb 9.444 oz Body Mass Index (BMI) 24.6 Intake & Output: Intake and Output for Last 24 Hours 10/05/23 10/06/23 10/07/23 23:59 23:59 23:59 Intake Total 280 / 280 5659.92 / 5659.92 51 / 51 Output Total 1000 / 1000 400 / 400 Balance 280 / 280 4659.92 / 4659.92 -349 / -349 Lab / Micro Data Attestation: I reviewed the patient's lab results. 10/07/23 05:10 10/07/23 05:10 Labs: Laboratory Results - last 24 hr 10/06/23 09:09: Hgb 6.5 L, B-Natriuretic Peptide 75.9, Blood Type O NEGATIVE, Antibody Screen NEGATIVE, Crossmatch See Detail 10/06/23 09:09: Crossmatch See Detail 10/06/23 14:15: Troponin I High Sens 55 10/06/23 15:15: WBC 13.6 H, RBC 3.10 L, Hgb 8.3 L, Hct 26.5 L, MCV 85.5, MCH 26.8 L, MCHC 31.3 L D, RDW Std Deviation 50.8 H, RDW Coeff of Estelita 16.8 H, Plt Count 277, MPV 9.7, Immature Gran % (Auto) 1.800 H, Neut % (Auto) 93.3 H, Lymph % (Auto) 2.7 L, Atkinson % (Auto) 2.1, Eos % (Auto) 0.0, Baso % (Auto) 0.1, Absolute Neuts (auto) 12.7 H, Absolute Lymphs (auto) 0.37 L, Nucleated RBC % 0.9 10/06/23 16:10: Troponin I High Sens 66 10/06/23 17:18: WBC 13.9 H, RBC 2.98 L, Hgb 7.8 L, Hct 25.3 L, MCV 84.9, MCH 26.2 L, MCHC 30.8 L, RDW Std Deviation 51.7 H, RDW Coeff of Estelita 17.1 H, Plt Count 275, MPV 9.6, Immature Gran % (Auto) 1.700 H, Neut % (Auto) 90.8 H, Lymph % (Auto) 2.9 L, Atkinson % (Auto) 4.5, Eos % (Auto) 0.0, Baso % (Auto) 0.1, Absolute Neuts (auto) 12.6 H, Absolute Lymphs (auto) 0.40 L, Nucleated RBC % 1.2 10/06/23 20:15: Troponin I High Sens 96 H 10/06/23 23:17: WBC 24.6 H, RBC 3.01 L, Hgb 8.1 L, Hct 26.6 L, MCV 88.4, MCH 26.9 L, MCHC 30.5 L, RDW Std Deviation 56.9 H, RDW Coeff of Estelita 18.1 H, Plt Count 324, MPV 9.6, Immature Gran % (Auto) 2.300 H, Neut % (Auto) 86.5 H, Lymph % (Auto) 3.5 L, Atkinson % (Auto) 7.5, Eos % (Auto) 0.0, Baso % (Auto) 0.2, Absolute Neuts (auto) 21.3 H, Absolute Lymphs (auto) 0.85, Nucleated RBC % 1.6, Differential Comment SCANNED, Diff Path Review June foll, Platelet Estimate ADEQUATE, Polychromasia 2+, Anisocytosis 2+, Ovalocytes 2+ 10/06/23 23:24: Sodium 142, Potassium 4.7, Chloride 111 H, Carbon Dioxide 23.0, Anion Gap 8, BUN 45 H, Creatinine 1.53 H, Estim Creat Clear Calc 40.33, Est GFR (MDRD) Af Amer 56 L, Est GFR (MDRD) Non-Af 47 L, BUN/Creatinine Ratio 29.4 H, G lucose 165 H, Calcium 7.5 L, Phosphorus 6.1 H, Magnesium 2.2, Total Bilirubin 1.10 H, AST 25, ALT 22, Alkaline Phosphatase 54, Total Protein 5.0 L, Albumin 2.4 L, Globulin 2.6, Albumin/Globulin Ratio 0.9 10/07/23 05:10: WBC 25.3 H, RBC 3.39 L, Hgb 9.3 L, Hct 29.0 L, MCV 85.5, MCH 27.4, MCHC 32.1 D, RDW Std Deviation 51.9 H, RDW Coeff of Estelita 17.2 H, Plt Count 310, MPV 9.8, Immature Gran % (Auto) 1.600 H, Neut % (Auto) 88.6 H, Lymph % (Auto) 2.8 L, Atkinson % (Auto) 6.9, Eos % (Auto) 0.0, Baso % (Auto) 0.1, Absolute Neuts (auto) 22.4 H, Absolute Lymphs (auto) 0.70 L, Nucleated RBC % 1.6, Differential Comment SCANNED, Diff Path Review May xin, Sodium 142, Potassium 4.1, Chloride 108 H, Carbon Dioxide 23.0, Anion Gap 11, BUN 48 H, Creatinine 1.46 H, Estim Creat Clear Calc 42.26, Est GFR (MDRD) Af Amer 60, Est GFR (MDRD) Non-Af 49 L, BUN/Creatinine Ratio 32.9 H, Glucose 152 H, Calcium 7.4 L, P hosphorus 6.8 H, Magnesium 2.0, Troponin I High Sens 78 Rhythm Strip Rhythm Strip: Sinus Tach Rate: 110 Ectopy: PVC(s) Cardiology Labs/Tests 10/06/23 09:09: Hgb 6.5 L, B-Natriuretic Peptide 75.9 10/06/23 15:15: WBC 13.6 H, RBC 3.10 L, Hgb 8.3 L, Hct 26.5 L, MCV 85.5, MCH 26.8 L, MCHC 31.3 L D, Plt Count 277, MPV 9.7, Immature Gran % (Auto) 1.800 H, N eut % (Auto) 93.3 H, Lymph % (Auto) 2.7 L, Atkinson % (Auto) 2.1, Eos % (Auto) 0.0, Baso % (Auto) 0.1, Absolute Neuts (auto) 12.7 H, Nucleated RBC % 0.9 10/06/23 17:18: WBC 13.9 H, RBC 2.98 L, Hgb 7.8 L, Hct 25.3 L, MCV 84.9, MCH 26.2 L, MCHC 30.8 L, Plt Count 275, MPV 9.6, Immature Gran % (Auto) 1.700 H, N eut % (Auto) 90.8 H, Lymph % (Auto) 2.9 L, Atkinson % (Auto) 4.5, Eos % (Auto) 0.0, Baso % (Auto) 0.1, Absolute Neuts (auto) 12.6 H, Nucleated RBC % 1.2 10/06/23 23:17: WBC 24.6 H, RBC 3.01 L, Hgb 8.1 L, Hct 26.6 L, MCV 88.4, MCH 26.9 L, MCHC 30.5 L, Plt Count 324, MPV 9.6, Immature Gran % (Auto) 2.300 H, N eut % (Auto) 86.5 H, Lymph % (Auto) 3.5 L, Atkinson % (Auto) 7.5, Eos % (Auto) 0.0, Baso % (Auto) 0.2, Absolute Neuts (auto) 21.3 H, Nucleated RBC % 1.6 10/06/23 23:24: Sodium 142, Potassium 4.7, Chloride 111 H, Carbon Dioxide 23.0, Anion Gap 8, BUN 45 H, Creatinine 1.53 H, Est GFR (MDRD) Af Amer 56 L, Est GFR (MDRD) Non-Af 47 L, BUN/Creatinine Ratio 29.4 H, Glucose 165 H, Calcium 7.5 L, P hosphorus 6.1 H, Magnesium 2.2, Total Bilirubin 1.10 H 10/07/23 05:10: WBC 25.3 H, RBC 3.39 L, Hgb 9.3 L, Hct 29.0 L, MCV 85.5, MCH 27.4, MCHC 32.1 D, Plt Count 310, MPV 9.8, Immature Gran % (Auto) 1.600 H, Neut % (Auto) 88.6 H, Lymph % (Auto) 2.8 L, Atkinson % (Auto) 6.9, Eos % (Auto) 0.0, Baso % (Auto) 0.1, Absolute Neuts (auto) 22.4 H, Nucleated RBC % 1.6, Sodium 142, Potassium 4.1, Chloride 108 H, Carbon Dioxide 23.0, Anion Gap 11, BUN 48 H, C reatinine 1.46 H, Est GFR (MDRD) Af Amer 60, Est GFR (MDRD) Non-Af 49 L, B UN/Creatinine Ratio 32.9 H, Glucose 152 H, Calcium 7.4 L, Phosphorus 6.8 H, Magnesium 2.0 Rhythm: EKG: ECHO: Stress Test: Cardiac Cath: PCI: CT Surgery: Holter monitor: EPS: PPM: CXR: Chest CT Scan: Radiography Diagnostic Testing: Radiology Impression Abdomen/Pelvis CTA 10/06/23 09:42 IMPRESSION: Diffuse fatty infiltration of the liver. Findings suggest a small layering gallstones along the dependent portion of the gallbladder lumen. Stable infrarenal abdominal aortic aneurysm with anterior mural clot. Sigmoid diverticulosis. Prostatic enlargement with indentation of the bladder base. Electronically Signed: Fernando Sidhu MD at 14:39 EDT , Echocardiogram 10/06/23 14:05 Interpretation Summary Normal LV size. Left ventricular systolic function is lower limits of normal. Mild focal aortic valve calcification. Ordering Physician: Elizabeth Santamaria Referring Physician: MD Maria G Dillan Performed By: Ro Hernandez [facility] Physical Exam Const alert Constitutional Narrative: Patient's is obviously tachypneic respiratory rate in the 30-35 range. HEENT normocephalic Neck no JVD Chest Chest: midline sternotomy incision Resp Effort and Inspection: uses accessory muscles Auscultation: rhonchi right lower and breath sounds absent left (Lateral auscultation in the lower lobe.) Cardio Rate: tachycardic Rhythm: regular rhythm Heart Sounds: S1 normal and S2 normal; Negative for click, gallop or murmur Extremity no pedal edema Skin General Skin Exam: ecchymosis Neuro Neuro Narrative: Patient is alert but drowsy. Psych mental status grossly normal Assessment & Plan Assessment/Plan (1) Angina at rest: PLAN: The patient had an anginal event yesterday when he was in the CT scan. His EKG did show ischemic changes but cardiac isoenzymes are negative x 4 sets. The echo shows low normal LV function with no wall motion abnormalities. The patient has known coronary disease. He has been anemic with a hemoglobin as low as 6.3, he is tachypneic and his is question of sepsis and/or pulmonary infection. The patient has had increased respiratory demand. This by of report of the nurse is calm down with BiPAP but he is refusing BiPAP at this time. (2) CAD (coronary artery disease): QUALIFIERS: Coronary Disease-Associated Artery/Lesion type: [place] artery [place] vs. transplanted heart: [place] heart Associated angina: with other forms of angina Qualified Code(s): I25.118 - Atherosclerotic heart disease of [place] coronary artery with other forms of angina pectoris PLAN: The patient is status post remote bypass graft surgery and subsequent stenting. LV function is low normal with no wall motion abnormality. (3) Tachypnea: PLAN: The patient's tachypnea does not appear to be related to heart failure. I do not feel that this is cardiovascular in etiology. It did resolve when he was placed on BiPAP yesterday. (4) PVC (premature ventricular contraction): PLAN: The patient's PVCs improved somewhat after a unit of blood. I think this is probably related to the myocardial oxygen demand. His heart rate is still above 100 bpm and we will increase his metoprolol to 25 mg every 6. The patient is not actively wheezing at this time. We do need to try and improve his oxygen carrying capacity. Although even with a hemoglobin of 6.3 and chest pain he did not have any leak of his high-sensitivity troponin enzymes. Unless the patient has sustained ventricular tachycardia I do not feel that antiarrhythmic therapy is indicated at this point in time. We need to correct his underlying metabolic derangements. PLAN: Plan 1. Continue supportive care maintaining hemoglobin above 8. 2. Will increase metoprolol to 25 mg Q6 as tolerated for suppression of PVCs and control of his heart rate to try and maintain it less than 100 if possible. Part of this is reactive sinus tachycardia related to his anemia and respiratory status. 3. Cardiology will sign off if further assistance is needed please recall the [facility] thank you Charges/Coding Visit Charges Inpatient E&M: 79933 Subs Hosp L3
[2023-10-07] MEDS: Pantoprazole Sodium 40 MG in 0.9% Normal Saline (100mL MB+) 100 ML 330 MG IV ×2 (09:20→20:31)
[2023-10-07] MEDS: 0.9% Normal Saline (1000mL) 1,000 ML 15 ML IV (10:13)
--- NOTE | 2023-10-07 10:18 | PCM.PRE.AN2 ---
ASA Classification* ASA Classification ASA Classification: 4 Assessment & Plan Anesthesia* Anesthesia Assessment Anesthesia Assessment: Discussed sedation and/or anesthesia options, risks, benefits, and alternatives with patient/parents/legal guardian/POA. Questions invited. The patient/parents/legal guardian/POA seems to understand and agrees to proceed with anesthesia plan. Reviewed the physical assessment, medical history, allergy history and patient home medications list prior to surgery/procedure/anesthetic and documented any changes. Performed airway and anesthesia risk assessments. Anesthesia Type Anesthesia Type: MAC Anesthesia Focused Assessment* Temperature: 96.1 F Pulse Rate: 108 Blood Pressure: 123/77 Respiratory Rate: 24 Pulse Ox: 94 Fraction of Inspired Oxygen (FIO2): 30 Airway Assessment Mouth opens: >3 cm Mallampati Score: II Focused Labs Anesthesia Preop lab: CBC WBC 25.3 K/mm3 (4.4-11.0) H 10/07/23 05:10 RBC 3.39 M/mm3 (4.6-6.2) L 10/07/23 05:10 Hgb 9.3 g/dL (13.0-16.5) L 10/07/23 05:10 Hct 29.0 % (40-54) L 10/07/23 05:10 Plt Count 310 K/mm3 (150-450) 10/07/23 05:10 CHEMISTRY Potassium 4.1 mmol/L (3.5-5.1) 10/07/23 05:10 Sodium 142 mmol/L (136-145) 10/07/23 05:10 Magnesium 2.0 mg/dL (1.6-2.6) 10/07/23 05:10 Phosphorus 6.8 mg/dL (2.5-4.9) H 10/07/23 05:10 BUN 48 mg/dL (7-18) H 10/07/23 05:10 Creatinine 1.46 mg/dL (0.70-1.30) H 10/07/23 05:10 Glucose 152 mg/dL (74-106) H 10/07/23 05:10 POC Glucose 115 mg/dL (74-106) H 10/05/23 21:35 COAG PT 13.8 SECONDS (11.7-14.9) 09/29/23 04:00 Pre-Assessment Diagnosis/Proposed Procedure Planned Operative Procedure(s): Colonoscopy, EGD Anesthesia History 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 When Was Last Pacemaker Check QUESTION #4 FULL TEXT: You/Your Family Experience fever (hyperthermia) with Anesthesia Last Oral Intake Last Oral intake: Last Oral Intake NPO since 00:00 10/07/23 04:41 Meds taken in AM with sips of water? 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 Has anyone observed you stop No 10/05/23 23:09 breathing during sleep? STOP Results Negative 10/05/23 23:09 QUESTION #5 FULL TEXT : Do you snore loudly (louder than talking or can be heard through closed doors)? 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 Specify any problems Hx of Preganancy in last 3 N/A 10/05/23 23:09 Months Nurse Filling Out Transfusion [id number] 10/05/23 23:09 & Questions: Date: 10/05/23 10/05/23 23:09 Time: 23:16 10/05/23 23:09 Patient unable to answer at this time (ie. confused, unrespo /Reproduction History /Reproductive History - rock climbing team member: /Reproductive Hx- rock climbing team member Hx Now Gestational Age (in weeks): EDC: Hx Hx Para Hx Section SAB No 08/13/20 08:35 Active Medications Active Medications: Current Medications Generic Name Dose Route Start Last Admin Trade Name Freq PRN Reason Stop Dose Admin Chlorhexidine Gluconate 1 each 10/07/23 10:00 Chlorhexidine Gluc 2% Cloth 1 Each [place] TOPICAL DAILY YAZAN Pantoprazole Sodium 40 mg/ 110 mls @ 330 mls/hr 10/05/23 23:20 10/07/23 09:20 Sodium Chloride IV 330 mls/hr Q12 YAZAN Administration Vancomycin IV-PHARMACY TO DOSE 500 mls @ 250 mls/hr 10/06/23 09:42 1 each/ Sodium Chloride IV X1 PRN Rx to Dose Protocol Piperacillin Sod/Tazobactam 50 mls @ 12.5 mls/hr 10/06/23 09:45 10/07/23 09:42 Sod 3.375 gm/ Sodium Chloride IV Infused Q8 YAZAN Infusion Vancomycin HCl 750 mg/ Sodium 265 mls @ 250 mls/hr 10/06/23 10:30 10/06/23 23:28 Chloride IV Infused Q12H YAZAN Infusion Sodium Chloride 1,000 mls @ 15 mls/hr 10/07/23 10:15 10/07/23 10:13 IV 15 mls/hr .Q48H YAZAN Administration Ipratropium [place] 0.5 mg 10/06/23 00:00 10/07/23 06:47 Ipratropium 0.5 Mg/2.5 Ml Solution INHALATION 0.5 mg Q4HWA.RT YAZAN Administration Metoclopramide HCl 5 mg 10/07/23 00:00 10/07/23 05:07 Metoclopramide 10 Mg/2 Ml Vial IV 5 mg Q6 YAZAN Administration Metoprolol Tartrate 25 mg 10/07/23 07:45 10/07/23 07:50 Metoprolol Tartrate 25 Mg Tablet PO 25 mg Q6 YAZAN Administration Protocol Nitroglycerin 0.4 mg 10/06/23 14:06 Nitroglycerin (Inpatient Use) 0.4 Mg Tab.Subl SL Q5M PRN CARDIAC/CHEST PAIN Ondansetron HCl 4 mg 10/05/23 23:20 Ondansetron 4 Mg/2 Ml Vial IV Q8H PRN PRN NAUSEA/VOMITING Sodium Chloride 10 - 40 ml 10/06/23 23:38 10/07/23 01:56 0.9% Saline Lock 10 Ml Syringe IV 30 ml UD PRN Administration SALINE FLUSH Vancomycin Protocol 1 lab 10/07/23 08:00 Vancomycin Trough/Random Due MC 10/07/23 12:00 DAILY YAZAN PFSH Medical History Depression Myocardial infarct Coronary artery disease Pulmonary neoplasm Pulmonary embolus Wears glasses Wears dentures Cancer Anxiety Abrasion History of steroid therapy Prostate disease High cholesterol Injury of back Syncope History of weight loss Former smoker COPD (chronic obstructive pulmonary disease) On home oxygen therapy Shortness of breath on exertion Chronic cough History of stress test Cardiology follow-up encounter Chest pain No pertinent family history 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 Nocturnal hypoxemia Chronic hypoxemic respiratory failure Bronchiectasis Prostate CA CAD (coronary artery disease) HLD (hyperlipidemia) Benign essential HTN Home Medications ?Medication ?Instructions ?Recorded ?Last Taken ?Type aspirin 81 mg chewable tablet 81 mg PO QPM heart health 12/29/14 10/05/23 History nitroglycerin 0.4 mg sublingual 0.4 mg sublingual Q5M PRN Chest 12/29/14 1 Week Ago History tablet Pain ~07/02/20 lorazepam 1 mg tablet (Ativan) 0.5 - 1 mg PO TID PRN Anxiety 07/09/20 03/25/23 History polyethylene glycol 3350 17 gram 17 g PO DAILY PRN Constipation 07/09/20 03/24/23 History oral powder packet (Miralax) acetaminophen 325 mg tablet 650 mg PO Q4H PRN Pain 08/13/20 03/24/23 History (Tylenol) oxycodone 5 mg tablet 5 mg PO Q6H PRN PAIN AND BREATHING 02/05/22 10/05/23 History fluticasone propionate 230 2 puff inhalation BID breathing 08/07/22 03/25/23 History mcg-salmeterol 21 mcg/actuation HFA inhaler (Advair HFA) atorvastatin 40 mg tablet 40 mg PO QHS cholesterol 03/25/23 10/04/23 History duloxetine 30 mg capsule,delayed 30 mg PO QPM DEPRESSION 03/25/23 10/04/23 History release tamsulosin 0.4 mg capsule 0.4 mg PO QPM BLADDER/ PROSTATE 03/25/23 10/04/23 History tiotropium bromide 2.5 2 puff inhalation DAILY copd 03/25/23 10/05/23 History mcg/actuation mist for inhalation (Spiriva Respimat) ezetimibe 10 mg tablet 10 mg PO DAILY cholesterol 09/28/23 10/05/23 History guaifenesin 600 mg tablet, 1,200 mg PO Q12H PRN cough 09/28/23 10/05/23 History extended release 12 hr (Mucinex) levalbuterol tartrate 45 2 puff inhalation Q4H PRN PRN 09/28/23 Unknown History mcg/actuation aerosol inhaler wheezing amoxicillin 875 mg-potassium 1 tab PO BID #10 tabs 09/30/23 10/05/23 Rx clavulanate 125 mg tablet fluconazole 100 mg tablet 100 mg PO DAILY #14 tabs 09/30/23 10/05/23 Rx prednisone 20 mg tablet 40 mg (2 x 20 mg) PO DAILY #10 tabs 09/30/23 10/05/23 Rx apixaban 5 mg tablet (Eliquis) 5 mg PO Q12H 10/05/23 10/05/23 History Allergy/AdvReac Type Severity Reaction Status Date / Time isosorbide (From Imdur) Allergy Other-patient Verified 10/05/23 17:24 blacks out Family History Other No pertinent family history Surgical History Hx of CABG Hx of heart artery stent Hx of transurethral resection of prostate Hx of pneumonectomy Hx of CABG No pertinent past surgical history Social History Smoking Status: Former smoker Tobacco: How many years used: 45 Electronic Cigarette Use: not used how long ago did patient quit smokin, second hand exposure: Yes alcohol intake: never substance use type: does not use Review of Systems (Anesthesia) ROS Narrative System reviewed and no additional complaints, except as documented.
[2023-10-07 10:26] LABS: Vancomycin, Trough Level 18.6 ug/mL (5.0-15.0)
[2023-10-07] MEDS: Vancomycin Trough/Random Due 1 LAB MC ×2 (10:35)
--- NOTE | 2023-10-07 11:00 | COLBX_PTH ---
PATIENT: OSWALDO MENDIOLA LOC: [facility] U#:[id number] AGE/SX: 83/M ROOM: [facility] RE10/05/[address]: Dr. Etta Edmondson MD : 1940 BED: 1 DIS: 10/17/2023 SPEC #: [id number] RECD: 10/07/23 13:08 STATUS: HERON REQ #: [id number] EDMOND: 10/07/23 11:[address]: Garcia Moreno DEPT: SURGICAL PATHOLOGY RECD BY: Petar Ribera ENTERED: 10/07/23 13:42 SP TYPE: COLON BX OTHR DR: MD Dr. Izaiah Vega MD Dr. Derek Brown, DO Dr. David P Myers, MD Dr. Edward Matheis, MD Dr. Gautam Baskaran, MD Dr. Yordanos Habtegebriel, MD Dr. Hemant Dand, MD Dr. Jose Ochoa, MD Dr. Kimber Foust, MD Dr. Lamia Aljundi, MD Dr. Mark Elderbrock, MD Dr. Michael Hughes, MD Dr. Nana Yaa Koram, MD Dr. Pritam Ghosh, MD Dr. Pavan Irukulla, MD Dr. Paul Nielsen, MD Dr. Saad Farooqi, MD Dr. Vikram Anand, MD Dr. William Haden, MD Tissues: A - Transverse colon B - COLON BIOPSY C - Descending colon Procedures: Surgery Specimen Level IV Comments: @ Ordering doctor for SUIV edited from to @ gabbi CHESTER at 10/07/23 1009 @ Submitting doctor edited from to @ by NEMO at 10/07/23 [id number] HEADER OPERATION: Colonoscopy with biopsies, polypectomy and hemostasis clip PRE-OP DIAGNOSIS: Fecal occult blood test positive, history of coronary artery disease, acidosis, lactic, pulmonary cavitary lesion, acute and chronic respiratory failure with hypoxia TISSUE SUBMITTED: A- Transverse colon polyp, B- Splenic flexure colon polyp biopsy, C- Descending colon polyp biopsy MICROSCOPIC DIAGNOSIS A. Transverse colon polyp, polypectomy: Tubular adenoma. B. Splenic flexure polyp, biopsy: Tubular adenoma. C. Descending colon polyp, biopsy: Fragments of hyperplastic polyp. SILVA/ 10/08/2023 MICROSCOPIC DESCRIPTION Slides are reviewed. GROSS DESCRIPTION A. Received in fixative is one container labeled with the patient's name and designated Transverse colon polyp biopsy. The specimen consists of one irregular fragment of light darling soft tissue that measures 0.3 x 0.3 x 0.1 cm. The specimen is totally submitted in one cassette. B. Received in fixative is one container labeled with the patient's name and designated Splenic flexure polyp biopsy. The specimen consists of a darling-pink polyp measuring 1.0 x 0.5 x 0.2cm. The entire specimen is submitted in one cassette. C. Received in fixative is one container labeled with the patient's name and designated Descending colon polyp biopsy. The specimen consists of multiple irregular fragments of light darling soft tissue that in aggregate measure 1.0 x 0.3 x 0.1 cm. The specimen is totally submitted in one cassette. Ced 10/07/2023 TC:5 CPT:[id number]
--- NOTE | 2023-10-07 11:03 | PCM.RX.CS ---
Consult Antibiotic Management Pharmacy has been consulted to manage selected antibiotic: Vancomycin Type of Intervention Type of Consult: Follow-up Suspected Infection Suspected Infection: Sepsis Prior Doses of Antibiotics Prior Doses of Antibiotics Received/Current Regimen: 10/05/23 @ 2115 10/06/23 @ 1422 10/06/23 @ 3189 Labs Labs: Sodium 142 mmol/L (136-145) 10/07/23 05:10 Potassium 4.1 mmol/L (3.5-5.1) 10/07/23 05:10 Chloride 108 mmol/L (98-107) H 10/07/23 05:10 Carbon Dioxide 23.0 mmol/L (21.0-32.0) 10/07/23 05:10 Anion Gap 11 (5-15) 10/07/23 05:10 BUN 48 mg/dL (7-18) H 10/07/23 05:10 Creatinine 1.46 mg/dL (0.70-1.30) H 10/07/23 05:10 Est GFR (MDRD) Af Amer 60 mL/min (>60) 10/07/23 05:10 Est GFR (MDRD) Non-Af 49 mL/min (>60) L 10/07/23 05:10 BUN/Creatinine Ratio 32.9 RATIO (10-20) H 10/07/23 05:10 Glucose 152 mg/dL (74-106) H 10/07/23 05:10 Vancomycin Trough 18.6 ug/mL (5.0-15.0) H 10/07/23 09:35 Microbiology Microbiology: Microbiology 10/06/23 05:00 Urine, Clean Catch Urine Culture - Preliminary Culture exhibits no growth. 10/05/23 23:30 Wound - Arm Right Skin and Soft Tissue MRSA/MSSA (PCR - Final 10/05/23 18:25 Stool Stool Occult Blood (YAMINI) - Final Occult Blood Positive Dosing Weight Weight used for dosin kg Estimated Creatinine Clearance Estimated Creatinine Clearance: 42 Goal Trough Goal Trough: 15-20 mcg/mL Pharmacy Plan for Drug Dosing Pharmacy Plan for Drug Dosing: Vancomycin 750mg every 12 hours. Pharmacy Service will continue to monitor and adjust dosing as required. Follow-Up Labs Follow-Up Labs: Trough: Vancomycin Date/Time Labs Ordered Labs to be done on [date and time ordered]: 10/08/23 @ 7570
--- NOTE | 2023-10-07 12:33 | PCM.POST.ANE ---
Anesthesia: Postop Eval I Current Vital Signs Temperature: 97 F Pulse Rate: 67 Blood Pressure: 123/64 Respiratory Rate: 18 Pulse Ox: 100 Oxygen Delivery Method: Simple Mask Oxygen Flow Rate (L/min): 4 Assessment Airway patent: Yes Spontaneous unlabored respirations: Yes Mental status: Awake nausea: No Vomiting: No Anesthesia Complication: No Fluid Hydration Crystalloid volume administer (ml): 600 Total IV fluid infused: 600 Progress Note Anesthesia document: Postop Eval 1 completed: Yes
--- NOTE | 2023-10-07 12:45 | OP.EGD_ITS ---
Patient Name: Hal Corley Procedure Date: 10/07/2023 11:30 AM Date of : 1940 Age: 83 Procedure: Upper GI endoscopy Indications: Hematochezia Providers: Garcia Moreno DO Medicines: Monitored Anesthesia Care Patient Profile: This is an 83 year old male. Refer to note in patient chart for documentation of history and physical. Patient has symptoms. Complications: No immediate complications. Procedure: Pre-Anesthesia Assessment: - Prior to the procedure, a History and Physical was performed, and patient medications and allergies were reviewed. The patient is competent. The risks and benefits of the procedure and the sedation options and risks were discussed with the patient. All questions were answered and informed consent was obtained. Patient identification and proposed procedure were verified by the physician in the pre-procedure area. Mental Status Examination: normal. Airway Examination: normal oropharyngeal airway and neck mobility. Respiratory Examination: clear to auscultation. CV Examination: normal. Prophylactic Antibiotics: The patient does not require prophylactic antibiotics. Prior Anticoagulants: The patient has taken no anticoagulant or antiplatelet agents. ASA Grade Assessment: III - A patient with severe systemic disease. After reviewing the risks and benefits, the patient was deemed in satisfactory condition to undergo the procedure. The anesthesia plan was to use monitored anesthesia care (MAC). Immediately prior to administration of medications, the patient was re-assessed for adequacy to receive sedatives. The heart rate, respiratory rate, oxygen saturations, blood pressure, adequacy of pulmonary ventilation, and response to care were monitored throughout the procedure. The physical status of the patient was re-assessed after the procedure. After obtaining informed consent, the endoscope was passed under direct vision. Throughout the procedure, the patient's blood pressure, pulse, and oxygen saturations were monitored continuously. The was introduced through the mouth, and advanced to the second part of duodenum. The upper GI endoscopy was accomplished with ease. The patient tolerated the procedure well. Scope In: 11:44:56 AM Scope Out: 11:50:55 AM Total Procedure Duration Time 0 hours 5 minutes 59 seconds Findings: The examined esophagus was normal. A small hiatal hernia was present. No other significant abnormalities were identified in a careful examination of the stomach. Two non-bleeding cratered duodenal ulcers with no stigmata of bleeding were found in the second portion of the duodenum. The largest lesion was 6 mm in largest dimension. Impression: - Normal esophagus. - Small hiatal hernia. - No gross lesions in the fourth portion of the duodenum. - No specimens collected. Recommendation: - Resume regular diet. - Continue present medications. Procedure Code(s): --- Professional --- 66412, Esophagogastroduodenoscopy, flexible, transoral; diagnostic, including collection of specimen(s) by brushing or washing, when performed (separate procedure) CPT copyright 2021 [employer]. All rights reserved. The codes documented in this report are preliminary and upon teacher hearing impaired review may be revised to meet current compliance requirements. Garcia Moreno DO 10/07/2023 12:45:25 PM This report has been signed electronically. Number of Addenda: 0 Note Initiated On: 10/07/2023 11:30 AM
--- NOTE | 2023-10-07 12:45 | OP.CCLET_ITS ---
10/07/2023 Dillan Cummins [address] [place] [address] Re : Upper GI endoscopy procedure for Hal Corley Dear Dr. Cummins This procedure was performed on Saturday, October 07, 2023. My impressions and recommendations are as follows: Impressions : - Normal esophagus. - Small hiatal hernia. - No gross lesions in the fourth portion of the duodenum. - No specimens collected. Recommendations : - Resume regular diet. - Continue present medications. My findings are described in the full procedure note, which is enclosed. If I can be of further assistance, please feel free to contact me at . Sincerely, Garcia Moreno, 10/07/2023 12:45:25 PM This report has been signed electronically.
--- NOTE | 2023-10-07 12:51 | OP.COLON_ITS ---
Patient Name: Hal Corley Procedure Date: 10/07/2023 11:51 AM Date of : 1940 Age: 83 Procedure: Colonoscopy Indications: Hematochezia Providers: Garcia Moreno DO Medicines: Monitored Anesthesia Care Patient Profile: This is an 83 year old male. Refer to note in patient chart for documentation of history and physical. Patient has symptoms. Last Colonoscopy: within the past month. Complications: No immediate complications. Procedure: Pre-Anesthesia Assessment: - Prior to the procedure, a History and Physical was performed, and patient medications and allergies were reviewed. The patient is competent. The risks and benefits of the procedure and the sedation options and risks were discussed with the patient. All questions were answered and informed consent was obtained. Patient identification and proposed procedure were verified by the physician in the pre-procedure area. Mental Status Examination: normal. Airway Examination: normal oropharyngeal airway and neck mobility. Respiratory Examination: clear to auscultation. CV Examination: normal. Prophylactic Antibiotics: The patient does not require prophylactic antibiotics. Prior Anticoagulants: The patient has taken no anticoagulant or antiplatelet agents. ASA Grade Assessment: III - A patient with severe systemic disease. After reviewing the risks and benefits, the patient was deemed in satisfactory condition to undergo the procedure. The anesthesia plan was to use monitored anesthesia care (MAC). Immediately prior to administration of medications, the patient was re-assessed for adequacy to receive sedatives. The heart rate, respiratory rate, oxygen saturations, blood pressure, adequacy of pulmonary ventilation, and response to care were monitored throughout the procedure. The physical status of the patient was re-assessed after the procedure. After I obtained informed consent, the scope was passed under direct vision. Throughout the procedure, the patient's blood pressure, pulse, and oxygen saturations were monitored continuously. The was introduced through the anus and advanced to the terminal ileum. The colonoscopy was performed without difficulty. The patient tolerated the procedure well. The quality of the bowel preparation was fair. The ileocecal valve, appendiceal orifice, and rectum were photographed. Scope In: 11:57:02 AM Scope Withdrawal Time 0 hours 11 minutes 51 seconds Scope Out: 12:13:54 PM Total Procedure Duration Time 0 hours 16 minutes 52 seconds Findings: The perianal and digital rectal examinations were normal. A few six mm ulcers were found in the rectum. No bleeding was present. No stigmata of recent bleeding were seen. Multiple small and large-mouthed diverticula were found in the entire colon. To stop active bleeding, three hemostatic clips were successfully placed. Clip staffing assistant: [employer]. There was no bleeding at the end of the procedure. A 3 mm polyp was found in the sigmoid colon. The polyp was sessile. The polyp was removed with a jumbo cold forceps. Resection and retrieval were complete. Verification of patient identification for the specimen was done. Estimated blood loss was minimal. A 9 mm polyp was found in the transverse colon. The polyp was sessile. The polyp was removed with a cold snare. Resection and retrieval were complete. Verification of patient identification for the specimen was done. Estimated blood loss was minimal. Stool was found in the rectum, in the recto-sigmoid colon, in the sigmoid colon, in the descending colon and in the transverse colon. Impression: - Preparation of the colon was fair. - A few ulcers in the rectum. - Diverticulosis in the entire examined colon. Clips were placed. Clip staffing assistant: [employer]. - One 3 mm polyp in the sigmoid colon, removed with a jumbo cold forceps. Resected and retrieved. - One 9 mm polyp in the transverse colon, removed with a cold snare. Resected and retrieved. - Stool in the rectum, in the recto-sigmoid colon, in the sigmoid colon, in the descending colon and in the transverse colon. Recommendation: - Return patient to [facility] for ongoing care. - Resume previous diet. - Continue present medications. - Await pathology results. - No repeat colonoscopy due to age. Procedure Code(s): --- Professional --- 71710, 59, Colonoscopy, flexible; with control of bleeding, any method 25289, Colonoscopy, flexible; with removal of tumor(s), polyp(s), or other lesion(s) by snare technique 08466, 59, Colonoscopy, flexible; with biopsy, single or multiple CPT copyright 2021 [employer]. All rights reserved. The codes documented in this report are preliminary and upon inclined railway operator review may be revised to meet current compliance requirements. Garcia Moreno DO 10/07/2023 12:51:03 PM This report has been signed electronically. Number of Addenda: 0 Note Initiated On: 10/07/2023 11:51 AM
--- NOTE | 2023-10-07 12:51 | OP.CCLET_ITS ---
10/07/2023 Dillan Cummins [address] [place] [address] Re : Colonoscopy procedure for Hal Corley Dear Dr. Cummins This procedure was performed on Saturday, October 07, 2023. My impressions and recommendations are as follows: Impressions : - Preparation of the colon was fair. - A few ulcers in the rectum. - Diverticulosis in the entire examined colon. Clips were placed. Clip pathology laboratory aide: [employer]. - One 3 mm polyp in the sigmoid colon, removed with a [employer] cold forceps. Resected and retrieved. - One 9 mm polyp in the transverse colon, removed with a cold snare. Resected and retrieved. - Stool in the rectum, in the recto-sigmoid colon, in the sigmoid colon, in the descending colon and in the transverse colon. Recommendations : - Return patient to [facility] for ongoing care. - Resume previous diet. - Continue present medications. - Await pathology results. - No repeat colonoscopy due to age. My findings are described in the full procedure note, which is enclosed. If I can be of further assistance, please feel free to contact me at . Sincerely, Garcia Moreno, 10/07/2023 12:51:03 PM This report has been signed electronically.
[2023-10-07] MEDS: Vancomycin HCl 750 MG in 0.9% Normal Saline (250mL Bag) 250 ML 250 MG IV ×2 (13:23→22:36)
[2023-10-07 13:37] LABS: Pathologist Review Reviewed
[2023-10-07 13:38] LABS: Pathologist Review Reviewed
--- NOTE | 2023-10-07 13:52 | PCM.POSTANE2 ---
Anesthesia Postop Eval I Sum Postop Eval Completion status Anesthesia document: Postop Eval 1 completed: Yes Anesthesia Postop Eval I Summary Anesthesia Postop Eval I Summary: Anesthesia Postop Eval I: Assessment Summary Airway patent Yes 10/07/23 12:34 [email or web address] Spontaneous unlabored Yes 10/07/23 12:34 [email or web address] respirations Mental status Awake 10/07/23 12:34 [email or web address] nausea No 10/07/23 12:34 [email or web address] Vomiting No 10/07/23 12:34 [email or web address] Anesthesia Postop Eval I: Fluid Summary Crystalloid volume administer 600 10/07/23 12:34 [email or web address] (ml) Colloids volume administered ( ml) Blood Product volume administered (ml) Total IV fluid infused 600 10/07/23 12:34 [email or web address] Anesthesia Postop Eval I: Summary Notes Anesthesia Complication No 10/07/23 12:34 [email or web address] Anesthesia Complication Comment: Post-operative progress note Anesthesia: Postop Eval II Evaluation Mental status: Awake and Calm Pain Level: 0 nausea: No Vomiting: No Complications Anesthesia Complication: No
--- NOTE | 2023-10-07 15:34 | PN_ITS ---
Subjective Subjective Patient seen and examined. Patient quite frail and ill. He had no active complaints. He did require increasing amounts of oxygen yesterday and was given some Lasix to help with possible fluid overload from blood transfusion as well as IV fluid administration. He is for EGD today. Objective Data Objective Data Vital Signs: Vital Signs Temp Pulse Resp BP Pulse Ox O2 Del Method O2 Flow Rate 97.0 F L 74 20 H 123/40 H 94 Nasal Cannula 4 10/07/23 12:35 10/07/23 15:00 10/07/23 15:00 10/07/23 15:00 10/07/23 15:00 10/07/23 15:00 10/07/23 15:00 FiO2 30 10/07/23 10:19 Oxygen Flow Rate (L/min) 4 Oxygen Delivery Method Nasal Cannula Weight: 176 lb 9.444 oz Body Mass Index (BMI) 24.6 Intake & Output: Intake and Output for Last 24 Hours 10/05/23 10/06/23 10/07/23 23:59 23:59 23:59 Intake Total 280 / 280 5659.92 / 5659.92 476 / 476 Output Total 1000 / 1000 1500 / 1500 Balance 280 / 280 4659.92 / 4659.92 -1024 / -1024 Medical Nutrition Assessment Dietitian: Malnutrition Criteria Met Start: 10/06/23 13:53 Freq: Status: Active Protocol: Document 10/06/23 13:53 SB (Rec: 10/06/23 13:53 SB [id number]) Nutrition Malnutrition Evidence of Malnutrition Exists Yes Malnutrition (severe): Acute Illness/Injury Evidenced By Suboptimal Energy Intake ( Severe),Weight Loss (Severe) Intake Problem Inadequate Oral Intake Etiology related to GI dysfunction Signs/Symptoms as evidence by NPO. Status Active Problem Clinical Problem Acute Disease or Injury Related Malnutrition Etiology severe related to inadequate oral intake and altered GI status Signs/Symptoms as evidence by 2.4% weight loss x 1 week and meeting <50% of estimated energy needs x 1 week. Status Active Problem Recommendation Dietitian Recommendations/Changes Recommend liberalized regular diet, as diet is advanced. Reviewed and approved by Chela John RD, JANINE Lab / Micro Data 10/07/23 05:10 10/07/23 05:10 Labs: Laboratory Results - last 24 hr 10/06/23 09:09: Crossmatch See Detail 10/06/23 09:09: Crossmatch See Detail 10/06/23 16:10: Troponin I High Sens 66 10/06/23 17:18: WBC 13.9 H, RBC 2.98 L, Hgb 7.8 L, Hct 25.3 L, MCV 84.9, MCH 26.2 L, MCHC 30.8 L, RDW Std Deviation 51.7 H, RDW Coeff of Estelita 17.1 H, Plt Count 275, MPV 9.6, Immature Gran % (Auto) 1.700 H, Neut % (Auto) 90.8 H, Lymph % (Auto) 2.9 L, [place] % (Auto) 4.5, Eos % (Auto) 0.0, Baso % (Auto) 0.1, Absolute Neuts (auto) 12.6 H, Absolute Lymphs (auto) 0.40 L, Nucleated RBC % 1.2 10/06/23 20:15: Troponin I High Sens 96 H 10/06/23 23:17: WBC 24.6 H, RBC 3.01 L, Hgb 8.1 L, Hct 26.6 L, MCV 88.4, MCH 26.9 L, MCHC 30.5 L, RDW Std Deviation 56.9 H, RDW Coeff of Estelita 18.1 H, Plt Count 324, MPV 9.6, Immature Gran % (Auto) 2.300 H, Neut % (Auto) 86.5 H, Lymph % (Auto) 3.5 L, [place] % (Auto) 7.5, Eos % (Auto) 0.0, Baso % (Auto) 0.2, Absolute Neuts (auto) 21.3 H, Absolute Lymphs (auto) 0.85, Nucleated RBC % 1.6, Differential Comment SCANNED, Diff Path Review Reviewed, Platelet Estimate ADEQUATE, Polychromasia 2+, Anisocytosis 2+, Ovalocytes 2+ 10/06/23 23:24: Sodium 142, Potassium 4.7, Chloride 111 H, Carbon Dioxide 23.0, Anion Gap 8, BUN 45 H, Creatinine 1.53 H, Estim Creat Clear Calc 40.33, Est GFR (MDRD) Af Amer 56 L, Est GFR (MDRD) Non-Af 47 L, BUN/Creatinine Ratio 29.4 H, G lucose 165 H, Calcium 7.5 L, Phosphorus 6.1 H, Magnesium 2.2, Total Bilirubin 1.10 H, AST 25, ALT 22, Alkaline Phosphatase 54, Total Protein 5.0 L, Albumin 2.4 L, Globulin 2.6, Albumin/Globulin Ratio 0.9 10/07/23 05:10: WBC 25.3 H, RBC 3.39 L, Hgb 9.3 L, Hct 29.0 L, MCV 85.5, MCH 27.4, MCHC 32.1 D, RDW Std Deviation 51.9 H, RDW Coeff of Estelita 17.2 H, Plt Count 310, MPV 9.8, Immature Gran % (Auto) 1.600 H, Neut % (Auto) 88.6 H, Lymph % (Auto) 2.8 L, [place] % (Auto) 6.9, Eos % (Auto) 0.0, Baso % (Auto) 0.1, Absolute Neuts (auto) 22.4 H, Absolute Lymphs (auto) 0.70 L, Nucleated RBC % 1.6, Differential Comment SCANNED, Diff Path Review Reviewed, Sodium 142, Potassium 4.1, Chloride 108 H, Carbon Dioxide 23.0, Anion Gap 11, BUN 48 H, Creatinine 1.46 H, Estim Creat Clear Calc 42.26, Est GFR (MDRD) Af Amer 60, Est GFR (MDRD) Non-Af 49 L, BUN/Creatinine Ratio 32.9 H, Glucose 152 H, Calcium 7.4 L, P hosphorus 6.8 H, Magnesium 2.0, Troponin I High Sens 78 10/07/23 09:35: Vancomycin Trough 18.6 H Micro: Microbiology 10/06/23 05:00 Urine, Clean Catch Urine Culture - Preliminary Culture exhibits no growth. 10/05/23 23:30 Wound - Arm Right Skin and Soft Tissue MRSA/MSSA (PCR - Final 10/05/23 18:25 Stool Stool Occult Blood (YAMINI) - Final Occult Blood Positive Radiography Diagnostic Testing: Radiology Impression Echocardiogram 10/06/23 14:05 Interpretation Summary Normal LV size. Left ventricular systolic function is lower limits of normal. Mild focal aortic valve calcification. Ordering Physician: Elizabeth Santamaria Referring Physician: MD Maria G Dillan Performed By: Ro Hernandez, CS Rhythm Strip Rhythm Strip: Sinus Tach Rate: 110 Ectopy: PVC(s) Physical Exam Const alert and oriented x3 General Appearance: cooperative Orientation / Consciousness: lethargic HEENT normocephalic, head/scalp atraumatic, moist oral mucous membranes and oropharynx normal Eyes PERRL and EOMs intact bilaterally Neck no lymphadenopathy and supple General: trachea midline Lymph Lymphatic: no lymphadenopathy noted and no lymphedema noted Resp Resp Narrative: diminished breath sounds bibasally, minimal crackles, on 4L of oxygen. Auscultation: wheezes expiratory wheezes Cardio regular rhythm, S1 normal heart sound, S2 normal heart sound and no murmurs Rate: tachycardic GI normal to inspection, nondistended, normoactive bowel sounds, soft to palpation and non-tender Extremity normal capillary refill, no clubbing, cyanosis or edema and no calf tenderness General Extremity: no tenderness to palpation of joints or extremities Skin Skin Narrative: Numerous bruises on upper extremities bilaterally General Skin Exam: no breakdown; Negative for skin tear(s) Neuro CN's II-XII intact bilaterally, no focal motor deficits and no sensory deficits noted Motor Exam: general weakness Psych thought process normal, cooperative and affect normal Mood & Affect: anxious Assessment & Plan Assessment/Plan (1) Anemia: QUALIFIERS: Anemia type: unspecified type Qualified Code(s): D 64.9 - Anemia, unspecified (2) Acidosis, lactic: (3) GI bleed: (4) Sepsis: PLAN: Plan #Acute anemia due to lower GI bleed * Patient's hemoglobin on admission was 7.1 and went down to 6.8. Subsequently dropped to 6.5. 2 units of blood were ordered and patient was transfused 2 units of packed red blood cells. He did receive another unit of blood overnight making a total of 3 units of packed red blood cells. * Repeat hemoglobin is 8.3. Patient is still bleeding per rectum with associated clots. * GI consulted. Per discussion with GI CT angiogram of the abdomen and pelvis done to rule out any small bowel bleeding and this was negative for that but did show abnormal aortic thrombus which is chronic * Patient transfused with a total of 3 units of packed red blood cells. * On IV pantoprazole 40 mg twice daily. * Colonoscopy showed diverticulosis in the entire examined colon and clips were placed and one 3 mm polyp in the sigmoid colon was removed and another 9 mm polyp in the transverse colon was removed. * EGD showed normal esophagus and small hiatal hernia and no gross lesions in the fourth portion of the duodenum * Resumed on clear liquid diet. Continue IV pantoprazole. * Will likely need to discontinue Eliquis permanently. * P * #Sepsis * Etiology is not clear. Patient however had elevated lactic acid and had elevated white cell count of 20 on admission. He is on his baseline 4 L of oxygen though he was initiated on BiPAP in the ED because he was very short of breath. I think anxiety may also have driven this as well as the acute on chronic anemia and he is back on his baseline 4 L of oxygen. * He was given a dose of IV vancomycin and Zosyn in the ED but this was not continued on admission. * IV vancomycin and Zosyn ordered. * Continue hydration with IV fluids. Lactic acid trending downwards with fluids. * critical care on board * blood and urine cultures pending * #Chest pain\ * Patient developed chest pain after he came back from the CT a of the abdomen and pelvis. EKG done showed evidence of subendocardial injury and incomplete left bundle branch block which was new. * Troponins were ordered which are negative x 2. Cardiology consulted and patient placed on sublingual nitroglycerin. * Cardiology consulted. Unable to give anticoagulation due to patient's severe anemia. * Sublingual nitroglycerin as needed. Already on high intensity statin though he is n.p.o. now * 2D echo showed normal left ventricular size with EF of 49% * Metoprolol dose increased to 25 mg every 6 hourly per cardiology to help with persistent tachycardia. * #Chronic respiratory failure due to COPD * On admission patient was placed on BiPAP but he was weaned down to his baseline 4 L of oxygen. Due to concern about COPD exacerbation he was started on IV Solu-Medrol. I elected to discontinue this steroids this morning as it can worsen the GI bleed and I do not think the patient has COPD exacerbation as he is down to his baseline 4 L of oxygen and his symptoms can be explained by the acute on chronic anemia. * Continue breathing treatments bronchodilators. Titrate oxygen to maintain saturation above 90%. * currently on 4L of oxygen. * #History of chronic aortic mural thrombus: Eliquis on hold due to GI bleed. Will monitor. 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 Currently stable. Will monitor. # History of depression and anxiety: Cymbalta on hold DVT prophylaxis: SCDs CODE STATUS: I discussed CODE STATUS with patient today and he tells me that he does not want CPR or intubation but wants everything else done. I clarified to him that this would mean he wants to be DNR CCA no intubation. He expressed understanding of the difference between full code, DNR CCA and DNR CCA and still chooses to be DNR CCA. Total [id number] time 16 minutes. Charges/Coding Visit Charges Inpatient E&M: 48554 Subs Hosp L3
--- NOTE | 2023-10-07 16:04 | PN.CC_ITS ---
Objective Data Objective Data Vital Signs: Vital Signs Last response 3 Temperature 36.1 C L 10/07/23 12:35 Temperature Source Temporal 10/07/23 12:35 Pulse Rate 74 10/07/23 15:00 Pulse Strength Weak (1+) 10/07/23 10:00 Respiratory Rate 20 H 10/07/23 15:00 Respiratory Effort Accessory Muscle Use 10/07/23 08:00 Respiratory Depth Normal 10/07/23 03:32 Respiratory Pattern Normal 10/07/23 12:25 Blood Pressure 123/40 H 10/07/23 15:00 Blood Pressure Mean 67 10/07/23 15:00 Blood Pressure Source Monitor 10/07/23 15:00 Blood Pressure Position Semi-Fowlers 10/07/23 13:00 Blood Pressure Location Left Arm 10/07/23 13:00 Baseline BP 123/77 10/07/23 12:35 Pulse Ox 94 10/07/23 15:00 Oxygen Delivery Method Nasal Cannula 10/07/23 15:00 Oxygen Flow Rate (L/min) 4 10/07/23 15:00 Fraction of Inspired Oxygen (FIO2) 30 10/07/23 10:19 I&O: I&O Last 24 Hours 3 10/06/23 10/07/23 10/07/23 23:59 11:59 23:59 Intake Total 4114.92 / 5659.92 211 / 476 265 / 476 Output Total 700 / 1000 950 / 1500 550 / 1500 Balance 3414.92 / 4659.92 -739 / -1024 -285 / -1024 I&O: Total Stay 3 10/05/23 17:23 thru 10/07/23 15:30 Intake Total 6415.92 Output Total 2500 Balance 3915.92 Current Meds Ordered / Administered: Current meds ordered / Administered 3 Generic Name Dose Route Start Last Admin Trade Name Freq PRN Reason Stop Dose Admin Chlorhexidine Gluconate 1 each 10/07/23 10:00 10/07/23 10:36 Chlorhexidine Gluc 2% Cloth 1 Each [place] TOPICAL Not Given DAILY YAZAN Pantoprazole Sodium 40 mg/ 110 mls @ 330 mls/hr 10/05/23 23:20 10/07/23 09:40 Sodium Chloride IV Infused Q12 YAZAN Infusion Vancomycin IV-PHARMACY TO DOSE 500 mls @ 250 mls/hr 10/06/23 09:42 1 each/ Sodium Chloride IV X1 PRN Rx to Dose Protocol Piperacillin Sod/Tazobactam 50 mls @ 12.5 mls/hr 10/06/23 09:45 10/07/23 14:48 Sod 3.375 gm/ Sodium Chloride IV 12.5 mls/hr Q8 YAZAN Administration Vancomycin HCl 750 mg/ Sodium 265 mls @ 250 mls/hr 10/06/23 10:30 10/07/23 15:30 Chloride IV Infused Q12H YAZAN Infusion Sodium Chloride 1,000 mls @ 15 mls/hr 10/07/23 10:15 10/07/23 10:13 IV 15 mls/hr .Q48H YAZAN Administration Ipratropium [place] 0.5 mg 10/06/23 00:00 10/07/23 06:47 Ipratropium 0.5 Mg/2.5 Ml Solution INHALATION 0.5 mg Q4HWA.RT YAZAN Administration Metoclopramide HCl 5 mg 10/07/23 00:00 10/07/23 13:24 Metoclopramide 10 Mg/2 Ml Vial IV 5 mg Q6 YAZAN Administration Metoprolol Tartrate 25 mg 10/07/23 07:45 10/07/23 13:24 Metoprolol Tartrate 25 Mg Tablet PO 25 mg Q6 YAZAN Administration Protocol Nitroglycerin 0.4 mg 10/06/23 14:06 Nitroglycerin (Inpatient Use) 0.4 Mg Tab.Subl SL Q5M PRN CARDIAC/CHEST PAIN Ondansetron HCl 4 mg 10/05/23 23:20 Ondansetron 4 Mg/2 Ml Vial IV Q8H PRN PRN NAUSEA/VOMITING Sodium Chloride 10 - 40 ml 10/06/23 23:38 10/07/23 01:56 0.9% Saline Lock 10 Ml Syringe IV 30 ml UD PRN Administration SALINE FLUSH Vancomycin Protocol 1 lab 10/08/23 20:30 Vancomycin Trough/Random Due MC 10/09/23 00:30 DAILY [facility] Medical Records Data Medical Nutrition Assessment Dietitian: Malnutrition Criteria Met Start: 10/06/23 13:53 Freq: Status: Active Protocol: Document 10/06/23 13:53 SB (Rec: 10/06/23 13:53 SB [id number]) Nutrition Malnutrition Evidence of Malnutrition Exists Yes Malnutrition (severe): Acute Illness/Injury Evidenced By Suboptimal Energy Intake ( Severe),Weight Loss (Severe) Intake Problem Inadequate Oral Intake Etiology related to GI dysfunction Signs/Symptoms as evidence by NPO. Status Active Problem Clinical Problem Acute Disease or Injury Related Malnutrition Etiology severe related to inadequate oral intake and altered GI status Signs/Symptoms as evidence by 2.4% weight loss x 1 week and meeting <50% of estimated energy needs x 1 week. Status Active Problem Recommendation Dietitian Recommendations/Changes Recommend liberalized regular diet, as diet is advanced. Reviewed and approved by Chela John RD, LD Lab / Micro Data 10/07/23 05:10 10/07/23 05:10 Labs: Laboratory Results - last 24 hr 10/06/23 09:09: Crossmatch See Detail 10/06/23 09:09: Crossmatch See Detail 10/06/23 16:10: Troponin I High Sens 66 10/06/23 17:18: WBC 13.9 H, RBC 2.98 L, Hgb 7.8 L, Hct 25.3 L, MCV 84.9, MCH 26.2 L, MCHC 30.8 L, RDW Std Deviation 51.7 H, RDW Coeff of Estelita 17.1 H, Plt Count 275, MPV 9.6, Immature Gran % (Auto) 1.700 H, Neut % (Auto) 90.8 H, Lymph % (Auto) 2.9 L, [place] % (Auto) 4.5, Eos % (Auto) 0.0, Baso % (Auto) 0.1, Absolute Neuts (auto) 12.6 H, Absolute Lymphs (auto) 0.40 L, Nucleated RBC % 1.2 10/06/23 20:15: Troponin I High Sens 96 H 10/06/23 23:17: WBC 24.6 H, RBC 3.01 L, Hgb 8.1 L, Hct 26.6 L, MCV 88.4, MCH 26.9 L, MCHC 30.5 L, RDW Std Deviation 56.9 H, RDW Coeff of Estelita 18.1 H, Plt Count 324, MPV 9.6, Immature Gran % (Auto) 2.300 H, Neut % (Auto) 86.5 H, Lymph % (Auto) 3.5 L, [place] % (Auto) 7.5, Eos % (Auto) 0.0, Baso % (Auto) 0.2, Absolute Neuts (auto) 21.3 H, Absolute Lymphs (auto) 0.85, Nucleated RBC % 1.6, Differential Comment SCANNED, Diff Path Review Reviewed, Platelet Estimate ADEQUATE, Polychromasia 2+, Anisocytosis 2+, Ovalocytes 2+ 10/06/23 23:24: Sodium 142, Potassium 4.7, Chloride 111 H, Carbon Dioxide 23.0, Anion Gap 8, BUN 45 H, Creatinine 1.53 H, Estim Creat Clear Calc 40.33, Est GFR (MDRD) Af Amer 56 L, Est GFR (MDRD) Non-Af 47 L, BUN/Creatinine Ratio 29.4 H, G lucose 165 H, Calcium 7.5 L, Phosphorus 6.1 H, Magnesium 2.2, Total Bilirubin 1.10 H, AST 25, ALT 22, Alkaline Phosphatase 54, Total Protein 5.0 L, Albumin 2.4 L, Globulin 2.6, Albumin/Globulin Ratio 0.9 10/07/23 05:10: WBC 25.3 H, RBC 3.39 L, Hgb 9.3 L, Hct 29.0 L, MCV 85.5, MCH 27.4, MCHC 32.1 D, RDW Std Deviation 51.9 H, RDW Coeff of Estelita 17.2 H, Plt Count 310, MPV 9.8, Immature Gran % (Auto) 1.600 H, Neut % (Auto) 88.6 H, Lymph % (Auto) 2.8 L, [place] % (Auto) 6.9, Eos % (Auto) 0.0, Baso % (Auto) 0.1, Absolute Neuts (auto) 22.4 H, Absolute Lymphs (auto) 0.70 L, Nucleated RBC % 1.6, Differential Comment SCANNED, Diff Path Review Reviewed, Sodium 142, Potassium 4.1, Chloride 108 H, Carbon Dioxide 23.0, Anion Gap 11, BUN 48 H, Creatinine 1.46 H, Estim Creat Clear Calc 42.26, Est GFR (MDRD) Af Amer 60, Est GFR (MDRD) Non-Af 49 L, BUN/Creatinine Ratio 32.9 H, Glucose 152 H, Calcium 7.4 L, P hosphorus 6.8 H, Magnesium 2.0, Troponin I High Sens 78 10/07/23 09:35: Vancomycin Trough 18.6 H Micro: Microbiology 10/06/23 05:00 Urine, Clean Catch Urine Culture - Preliminary Culture exhibits no growth. Rhythm Strip Rhythm Strip: Sinus Tach Rate: 110 Ectopy: PVC(s) Imaging Radiology Impression Echocardiogram 10/06/23 14:05 Interpretation Summary Normal LV size. Left ventricular systolic function is lower limits of normal. Mild focal aortic valve calcification. Ordering Physician: Elizabeth Santamaria Referring Physician: MD Maria G Dillan Performed By: Ro Hernandez RDSADI Assessment and Plan . Assessment and plan: 1. Acute blood loss Anemia: complicated hx. 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 s/p 2 units. AC held. Serial H/H stable. On PPI. GI s/p EGD and colon. No clear current source. Colon with diverticuli throughout. 2. ? Sepsis: suspect lactate elevated 2/2 GI bleed. Cultures sent. On empiric antibxs. WBC jumped today. will follow. 3. Resp Failure: Acute on chronic. Hypoxemic/hypercapneic. Now back to 4 L NC(baseline). Suspect increase in deadspace from hyvolemia/GI bleed. 4. COPD exac: ?. S Continue duonebs. 5. GI bleed: s/p 2 units. H/Hstable. On PPI 6. 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 PX: SCDs Marco Antonio Day MD The entirety of this encounter was done via Telemedicine Physical Exam Narrative ill appearing, NAD pupils:= o/p:clear CV:: RRR Chest: faint end wheezing, Good a/e Abd: soft,nt Ext: No c/c/e Subjective Subjective s/p EGD(unrevealing). S/p colonscopy: diverticuli/polyps/rectal ulcer present. No clear sign of bleeding
--- NOTE | 2023-10-07 23:52 | CPS ---
Patient refused PAP therapy for the night.
[2023-10-08] VITALS (33 sets, daily range): BP systolic 92–133; BP diastolic 50–90; PULSE 73–180; RESP 12–33; TEMP 37.1–38; O2SAT 92–100; BMI 24.9
[2023-10-08 03:47] LABS: Absolute Lymphocyte Count 0.41 X10^3/uL (0.83-4.51); Absolute Neutrophil Count 14.8 X10^3/uL (2.0-7.7); Hemoglobin 8.3 g/dL (13.0-16.5); Lymphocyte # 0.41 X10^3/ul (0.83-4.51); Lymphocyte % 2.5 % (19-41); Mean Corp Hgb Conc 31.9 g/dL (32-36); Mean Corpuscular Hgb 27.8 pg (27.0-32.0); Mean Platelet Vol. 9.6 fl (6.2-12.0); Monocyte# 0.97 X10^3/uL; Monocyte% 5.9 % (0-10); NRBC Flagged by Analyzer 0.9 % (0-5); Neutrophil # 14.75 X10^3/uL (2.7-7.7); Neutrophil % 90.5 % (47-70); POSITIVE DIFFERENTIAL YES; Platelet Count 208 K/mm3 (150-450); RBC Distribution Width CV 17.1 % (11.6-14.6); Red Blood Count 2.99 M/mm3 (4.6-6.2); White Blood Count 16.3 K/mm3 (4.4-11.0)
[2023-10-08 04:09] LABS: Anion Gap 7 (5-15); BUN 44 mg/dL (7-18); BUN/Creat Ratio 38.6 RATIO (10-20); Calcium,Total 7.3 mg/dL (8.5-10.1); Chloride 110 mmol/L (98-107); Creatinine, Serum 1.14 mg/dL (0.70-1.30); EST Glomerular Filtration Rate 66 mL/min (>60); Est Glom Filt Rate - Afr Amer 79 mL/min (>60); Estimated Creatinine Clearance 54.13 ml/min; Glucose 101 mg/dL (74-106); Potassium 3.5 mmol/L (3.5-5.1); Sodium Level 142 mmol/L (136-145)
[2023-10-08] MEDS: Metoprolol Tartrate 25 MG Tablet PO ×4 (05:50→22:33)
[2023-10-08] MEDS: Metoclopramide 10 MG/2 ML Vial 5 MG IV ×4 (05:50→22:34)
[2023-10-08] MEDS: Piperacil/Tazobactam 3.375 GM in 0.9% Normal Saline (50mL MB+) 50 ML IV ×3 (05:50→21:23)
[2023-10-08] MEDS: 0.9% Saline Lock 10 ML Syringe IV ×2 (05:51→22:31)
[2023-10-08] MEDS: CHLORHEXIDINE GLUC 2% CLOTH 1 EACH TOWELETTE TOPICAL (05:51)
[2023-10-08] MEDS: Ipratropium 0.5 MG/2.5 ML SOLUTION INHALATION ×4 (07:36→19:15)
[2023-10-08] MEDS: Pantoprazole Sodium 40 MG in 0.9% Normal Saline (100mL MB+) 100 ML 330 MG IV ×2 (09:56→21:21)
[2023-10-08] MEDS: Vancomycin HCl 750 MG in 0.9% Normal Saline (250mL Bag) 250 ML 250 MG IV ×2 (10:22→22:31)
[2023-10-08] MEDS: guaiFENesin Dm 10 ML UDC 5 ML PO ×2 (13:16→21:39)
--- NOTE | 2023-10-08 13:43 | CPS ---
This RT was called by RN. RN placed pt on bipap because pt was SOB. This RT went into pt room and talked to pt and family. Pt tolerating bipap at this time. RT checked bipap at this time
--- NOTE | 2023-10-08 13:47 | PN_ITS ---
Subjective Subjective Patient seen and examined. He had no active complaints and said he felt a bit better today. He had EGD yesterday which showed bleeding peptic ulcers. He remains on pantoprazole. Review of systems is otherwise negative. Objective Data Objective Data Vital Signs: Vital Signs Temp Pulse Resp BP Pulse Ox O2 Del Method O2 Flow Rate 99.2 F H 105 H 33 H 111/67 100 Bi-pap 4 10/08/23 12:00 10/08/23 13:39 10/08/23 13:39 10/08/23 13:00 10/08/23 13:00 10/08/23 13:00 10/08/23 12:00 FiO2 30 10/08/23 13:39 Oxygen Flow Rate (L/min) 4 Oxygen Delivery Method Bi-pap Weight: 178 lb 9.191 oz Body Mass Index (BMI) 24.9 Intake & Output: Intake and Output for Last 24 Hours 10/06/23 10/07/23 10/08/23 23:59 23:59 23:59 Intake Total 5659.92 / 5659.92 1001 / 1001 1095 / 1095 Output Total 1000 / 1000 2450 / 2450 700 / 700 Balance 4659.92 / 4659.92 -1449 / -1449 395 / 395 Medical Nutrition Assessment Dietitian: Malnutrition Criteria Met Start: 10/06/23 13:53 Freq: Status: Active Protocol: Document 10/06/23 13:53 SB (Rec: 10/06/23 13:53 SB [id number]) Nutrition Malnutrition Evidence of Malnutrition Exists Yes Malnutrition (severe): Acute Illness/Injury Evidenced By Suboptimal Energy Intake ( Severe),Weight Loss (Severe) Intake Problem Inadequate Oral Intake Etiology related to GI dysfunction Signs/Symptoms as evidence by NPO. Status Active Problem Clinical Problem Acute Disease or Injury Related Malnutrition Etiology severe related to inadequate oral intake and altered GI status Signs/Symptoms as evidence by 2.4% weight loss x 1 week and meeting <50% of estimated energy needs x 1 week. Status Active Problem Recommendation Dietitian Recommendations/Changes Recommend liberalized regular diet, as diet is advanced. Reviewed and approved by Chela John RD, LD Lab / Micro Data 10/08/23 03:41 10/08/23 03:41 Labs: Laboratory Results - last 24 hr 10/08/23 03:41: WBC 16.3 H, RBC 2.99 L, Hgb 8.3 L, Hct 26.0 L, MCV 87.0, MCH 27.8, MCHC 31.9 L, RDW Std Deviation 52.0 H, RDW Coeff of Estelita 17.1 H, Plt Count 208, MPV 9.6, Immature Gran % (Auto) 1.100 H, Neut % (Auto) 90.5 H, Lymph % (Auto) 2.5 L, [place] % (Auto) 5.9, Eos % (Auto) 0.0, Baso % (Auto) 0.0, Absolute Neuts (auto) 14.8 H, Absolute Lymphs (auto) 0.41 L, Nucleated RBC % 0.9, Sodium 142, Potassium 3.5, Chloride 110 H, Carbon Dioxide 25.0, Anion Gap 7, BUN 44 H, Creatinine 1.14, Estim Creat Clear Calc 54.13, Est GFR (MDRD) Af Amer 79, Est GFR (MDRD) Non-Af 66, BUN/Creatinine Ratio 38.6 H, Glucose 101, Calcium 7.3 L Micro: Microbiology 10/06/23 05:00 Urine, Clean Catch Urine Culture - Final Culture exhibits no growth. 10/05/23 19:40 Blood Culture (Wb) - Anticubital Left Blood Culture - Preliminary No growth in 48 hours. 10/05/23 23:30 Wound - Arm Right Skin and Soft Tissue MRSA/MSSA (PCR - Final 10/05/23 18:25 Stool Stool Occult Blood (YAMINI) - Final Occult Blood Positive Rhythm Strip Rhythm Strip: Sinus Tach Rate: 110 Ectopy: PVC(s) Physical Exam Const alert and oriented x3 General Appearance: cooperative Orientation / Consciousness: lethargic HEENT normocephalic, head/scalp atraumatic, moist oral mucous membranes and oropharynx normal Eyes PERRL and EOMs intact bilaterally Neck no lymphadenopathy and supple General: trachea midline Lymph Lymphatic: no lymphadenopathy noted and no lymphedema noted Resp Resp Narrative: diminished breath sounds bibasally, minimal crackles, on 4L of oxygen which is his baseline Effort and Inspection: tachypneic Cardio regular rhythm, S1 normal heart sound, S2 normal heart sound and no murmurs Rate: tachycardic GI normal to inspection, nondistended, normoactive bowel sounds, soft to palpation and non-tender Extremity normal capillary refill, no clubbing, cyanosis or edema and no calf tenderness General Extremity: no tenderness to palpation of joints or extremities Skin Skin Narrative: Numerous bruises on upper extremities bilaterally General Skin Exam: no breakdown Neuro CN's II-XII intact bilaterally, no focal motor deficits and no sensory deficits noted Motor Exam: general weakness Psych thought process normal Mood & Affect: anxious Assessment & Plan Assessment/Plan (1) Anemia: QUALIFIERS: Anemia type: unspecified type Qualified Code(s): D 64.9 - Anemia, unspecified (2) Acidosis, lactic: (3) GI bleed: (4) Sepsis: PLAN: Plan #Acute anemia due to lower GI bleed * GI consulted. Per discussion with GI CT angiogram of the abdomen and pelvis done to rule out any small bowel bleeding and this was negative for that but did show abnormal aortic thrombus which is chronic * Patient transfused with a total of 3 units of packed red blood cells. * On IV pantoprazole 40 mg twice daily. * Colonoscopy showed diverticulosis in the entire examined colon and clips were placed and one 3 mm polyp in the sigmoid colon was removed and another 9 mm polyp in the transverse colon was removed. * EGD showed normal esophagus and small hiatal hernia and no gross lesions in the fourth portion of the duodenum * Resumed on clear liquid diet. Continue IV pantoprazole. * Will likely need to discontinue Eliquis permanently. * * #Sepsis * Etiology is not clear. Patient however had elevated lactic acid and had elevated white cell count of 20 on admission. He is on his baseline 4 L of oxygen though he was initiated on BiPAP in the ED because he was very short of breath. I think anxiety may also have driven this as well as the acute on chronic anemia and he is back on his baseline 4 L of oxygen. * He was given a dose of IV vancomycin and Zosyn in the ED but this was not continued on admission. * on IV vancomycin and zosyn. * Continue hydration with IV fluids. * critical care on board * blood and urine cultures pending * wbc is down to 16. * #Chest pain * Patient developed chest pain after he came back from the CT a of the abdomen and pelvis. EKG done showed evidence of subendocardial injury and incomplete left bundle branch block which was new. * Troponins were ordered which are negative x 2. Cardiology consulted and patient placed on sublingual nitroglycerin. * Cardiology consulted. Unable to give anticoagulation due to patient's severe anemia. * Sublingual nitroglycerin as needed. Already on high intensity statin though he is n.p.o. now * 2D echo showed normal left ventricular size with EF of 49% * Metoprolol dose increased to 25 mg every 6 hourly per cardiology to help with persistent tachycardia. * #Chronic respiratory failure due to COPD * On admission patient was placed on BiPAP but he was weaned down to his baseline 4 L of oxygen. Due to concern about COPD exacerbation he was started on IV Solu-Medrol. I elected to discontinue this steroids this morning as it can worsen the GI bleed and I do not think the patient has COPD exacerbation as he is down to his baseline 4 L of oxygen and his symptoms can be explained by the acute on chronic anemia. * Continue breathing treatments bronchodilators. Titrate oxygen to maintain saturation above 90%. * remains on 4L of oxygen. * #History of chronic aortic mural thrombus: Eliquis on hold due to GI bleed. Will monitor. 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 Currently stable. Will monitor. # History of depression and anxiety: Cymbalta on hold DVT prophylaxis: SCDs CODE STATUS: DNRCCA Charges/Coding Visit Charges Inpatient E&M: 07584 Subs Hosp L2
--- NOTE | 2023-10-08 14:08 | CPS ---
pt stated he wanted off bipap at this time. Pt stated was the bipap on long enough Rt explained to pt and pts the benefits of wearing bipap all night would help his breathing. Pt states he doesnt know if he can wear it that long. Rt talked to pt and pts about his meds. RT talked to about getting pt a pulmicort ordered.
[2023-10-08] MEDS: LORazepam 0.5 MG Tablet PO ×2 (14:26→21:22)
--- NOTE | 2023-10-08 15:19 | PN.CC_ITS ---
Objective Data Objective Data Vital Signs: Vital Signs Last response 3 Temperature 37.7 C H 10/08/23 14:00 Temperature Source Core 10/08/23 14:00 Pulse Rate 88 10/08/23 15:00 Pulse Strength Weak (1+) 10/07/23 19:24 Respiratory Rate 21 H 10/08/23 15:00 Respiratory Effort Normal, Non-Labored 10/08/23 12:00 Respiratory Depth Shallow 10/08/23 12:00 Respiratory Pattern Tachypnea 10/08/23 13:39 Blood Pressure 108/54 L 10/08/23 15:00 Blood Pressure Mean 72 10/08/23 15:00 Blood Pressure Source Monitor 10/08/23 15:00 Blood Pressure Position Semi-Fowlers 10/08/23 15:00 Blood Pressure Location Left Arm 10/08/23 15:00 Baseline BP 123/77 10/07/23 12:35 Pulse Ox 95 10/08/23 15:00 Oxygen Delivery Method Nasal Cannula 10/08/23 15:00 Oxygen Flow Rate (L/min) 4 10/08/23 15:00 Fraction of Inspired Oxygen (FIO2) 30 10/08/23 14:00 I&O: I&O Last 24 Hours 3 10/07/23 10/08/23 10/08/23 23:59 11:59 23:59 Intake Total 790 / 1001 1095 / 1095 Output Total 1500 / 2450 700 / 700 Balance -710 / -1449 395 / 395 I&O: Total Stay 3 10/05/23 17:23 thru 10/08/23 11:42 Intake Total 8035.92 Output Total 4150 Balance 3885.92 Current Meds Ordered / Administered: Current meds ordered / Administered 3 Generic Name Dose Route Start Last Admin Trade Name Freq PRN Reason Stop Dose Admin Budesonide 0.5 mg 10/08/23 14:00 Budesonide Respules 0.5 Mg/2 Ml Ampul.Neb. INHALATION BID.RT YAZAN Chlorhexidine Gluconate 1 each 10/07/23 10:00 10/08/23 05:51 Chlorhexidine Gluc 2% Cloth 1 Each [place] TOPICAL 1 each DAILY YAZAN Administration Guaifenesin 5 ml 10/08/23 13:07 10/08/23 13:16 Guaifenesin Dm 10 Ml Udc PO 5 ml Q6H PRN PRN Administration COUGH/CONGESTION Pantoprazole Sodium 40 mg/ 110 mls @ 330 mls/hr 10/05/23 23:20 10/08/23 10:22 Sodium Chloride IV Infused Q12 YAZNA Infusion Vancomycin IV-PHARMACY TO DOSE 500 mls @ 250 mls/hr 10/06/23 09:42 1 each/ Sodium Chloride IV X1 PRN Rx to Dose Protocol Piperacillin Sod/Tazobactam 50 mls @ 12.5 mls/hr 10/06/23 09:45 10/08/23 13:06 Sod 3.375 gm/ Sodium Chloride IV 12.5 mls/hr Q8 YAZAN Administration Vancomycin HCl 750 mg/ Sodium 265 mls @ 250 mls/hr 10/06/23 10:30 10/08/23 11:42 Chloride IV Infused Q12H YAZAN Infusion Sodium Chloride 1,000 mls @ 15 mls/hr 10/07/23 10:15 10/07/23 10:13 IV 15 mls/hr .Q48H YAZAN Administration Ipratropium [place] 0.5 mg 10/06/23 00:00 10/08/23 10:57 Ipratropium 0.5 Mg/2.5 Ml Solution INHALATION 0.5 mg Q4HWA.RT YAZAN Administration Lorazepam 0.5 - 1 mg 10/08/23 14:08 10/08/23 14:26 Lorazepam 0.5 Mg Tablet PO 0.5 mg TID PRN PRN Administration ANXIETY Metoclopramide HCl 5 mg 10/07/23 00:00 10/08/23 12:56 Metoclopramide 10 Mg/2 Ml Vial IV 5 mg Q6 YAZAN Administration Metoprolol Tartrate 25 mg 10/07/23 07:45 10/08/23 12:55 Metoprolol Tartrate 25 Mg Tablet PO 25 mg Q6 YAZAN Administration Protocol Nitroglycerin 0.4 mg 10/06/23 14:06 Nitroglycerin (Inpatient Use) 0.4 Mg Tab.Subl SL Q5M PRN CARDIAC/CHEST PAIN Nutritional Formula (Lactose Free) 120 ml 10/08/23 14:00 10/08/23 13:26 Ensure Plus High Protein 120 Ml Liquid PO Not Given 4X/DAY YAZAN Ondansetron HCl 4 mg 10/05/23 23:20 Ondansetron 4 Mg/2 Ml Vial IV Q8H PRN PRN NAUSEA/VOMITING Sodium Chloride 10 - 40 ml 10/06/23 23:38 10/08/23 05:51 0.9% Saline Lock 10 Ml Syringe IV 10 ml UD PRN Administration SALINE FLUSH Vancomycin Protocol 1 lab 10/08/23 20:30 Vancomycin Trough/Random Due MC 10/09/23 00:30 DAILY [facility] Medical Records Data Medical Nutrition Assessment Dietitian: Malnutrition Criteria Met Start: 10/06/23 13:53 Freq: Status: Active Protocol: Document 10/06/23 13:53 SB (Rec: 10/06/23 13:53 SB [id number]) Nutrition Malnutrition Evidence of Malnutrition Exists Yes Malnutrition (severe): Acute Illness/Injury Evidenced By Suboptimal Energy Intake ( Severe),Weight Loss (Severe) Intake Problem Inadequate Oral Intake Etiology related to GI dysfunction Signs/Symptoms as evidence by NPO. Status Active Problem Clinical Problem Acute Disease or Injury Related Malnutrition Etiology severe related to inadequate oral intake and altered GI status Signs/Symptoms as evidence by 2.4% weight loss x 1 week and meeting <50% of estimated energy needs x 1 week. Status Active Problem Recommendation Dietitian Recommendations/Changes Recommend liberalized regular diet, as diet is advanced. Reviewed and approved by Chela John RD, LD Lab / Micro Data 10/08/23 03:41 10/08/23 03:41 Labs: Laboratory Results - last 24 hr 10/08/23 03:41: WBC 16.3 H, RBC 2.99 L, Hgb 8.3 L, Hct 26.0 L, MCV 87.0, MCH 27.8, MCHC 31.9 L, RDW Std Deviation 52.0 H, RDW Coeff of Estelita 17.1 H, Plt Count 208, MPV 9.6, Immature Gran % (Auto) 1.100 H, Neut % (Auto) 90.5 H, Lymph % (Auto) 2.5 L, [place] % (Auto) 5.9, Eos % (Auto) 0.0, Baso % (Auto) 0.0, Absolute Neuts (auto) 14.8 H, Absolute Lymphs (auto) 0.41 L, Nucleated RBC % 0.9, Sodium 142, Potassium 3.5, Chloride 110 H, Carbon Dioxide 25.0, Anion Gap 7, BUN 44 H, Creatinine 1.14, Estim Creat Clear Calc 54.13, Est GFR (MDRD) Af Amer 79, Est GFR (MDRD) Non-Af 66, BUN/Creatinine Ratio 38.6 H, Glucose 101, Calcium 7.3 L Micro: Microbiology 10/06/23 05:00 Urine, Clean Catch Urine Culture - Final Culture exhibits no growth. 10/05/23 19:40 Blood Culture (Wb) - Anticubital Left Blood Culture - Preliminary No growth in 48 hours. Rhythm Strip Rhythm Strip: Sinus Tach Rate: 110 Ectopy: PVC(s) Assessment and Plan . Assessment and plan: 1. Acute blood loss Anemia: complicated hx:AVMs in upper and lower GI tract prior admit. Now s/p 2 units. AC held. Serial H/H stable. On PPI. GI s/p Repeat EGD and colon. No clear current source. Colon with diverticuli throughout. 2. ? Sepsis: suspect lactate elevated 2/2 GI bleed. Cultures sent. On empiric antibxs. WBC improved today. 3. Resp Failure: Acute on chronic. Hypoxemic/hypercapneic. Now back to 4 L NC(baseline). Suspect increase in deadspace from hyvolemia/GI bleed. Has episodic sob 2/2 severity of COPD and tenuous resp status 4. COPD exac: ?. S Continue duonebs. Re-start pulmicort 5. GI bleed: s/p 2 units. H/H stable. On PPI 6. 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 PX: SCDs Tx to floor. Will sign off. Marco Antonio Day MD The entirety of this encounter was done via Telemedicine Physical Exam Narrative awake, NAD pupils:= o/p:clear CV: RRR Chest: Good a/e, no wheezing, sporadic crackles Abd: soft, NT Ext: no c/e/c Subjective Subjective doing well. Had episode of sob. Now stable
--- NOTE | 2023-10-08 16:56 | CASEMGMT ---
Addendum entered by Delma Contreras 10/09/23 14:31: Dr Santamaria made aware nurse from Dr Poly Calvillo's office inquiring about pt getting a trilogy unit and also that per CPS today, pt may not need trilogy or BIPAP @ HS and that she states will have CPS trial pt on O2 via NC tonight. CPS also states pt may need more than his baseline home O2 @ HS. Overnight trending pulse ox would be needed the night before pt discharges from the hospital to determine if pt needs increase in O2 @ HS. Original Note: GILMAR DIAZ NOTE: CPS, Melisa states family and had questions about pt getting a BIPAP @ dc and Melisa states she informed them pt would need sleep study done as an OP. Melisa states family then had her talk to nurse, Yuliet, @ Dr Poly Calvillo's office (pulmonology) and that Yuliet was inquiring about pt getting a trilogy unit @ dc. GILMAR DIAZ to f/u on this on Thursday. Per Melisa, also states pt is active w/Palliative care. This senior writer verified w/[facility] that pt is active w/them and they last saw pt 07/31/23. They were notified pt has been admitted to [facility]. Connor MESSINA RN, CM
[2023-10-08] MEDS: Ensure Plus High Protein 120 ML LIQUID PO (17:16)
--- NOTE | 2023-10-08 19:06 | EX.PCM.PN.GI ---
Subjective Subjective Patient denies any complaints at this time. He underwent an upper or lower endoscopy yesterday. He is not seeing any signs of GI bleeding today. He is still having hide normal temperatures. Objective Data Objective Data Vital Signs: Vital Signs Temp Pulse Resp BP Pulse Ox O2 Del Method O2 Flow Rate 99.9 F H 90 26 H 107/57 L 97 Nasal Cannula 4 10/08/23 17:00 10/08/23 17:16 10/08/23 17:00 10/08/23 17:16 10/08/23 17:00 10/08/23 17:00 10/08/23 17:00 FiO2 30 10/08/23 14:00 Oxygen Flow Rate (L/min) 4 Oxygen Delivery Method Nasal Cannula Weight: 178 lb 9.191 oz Body Mass Index (BMI) 24.9 Intake & Output: Intake and Output for Last 24 Hours 10/06/23 10/07/23 10/08/23 23:59 23:59 23:59 Intake Total 5659.92 / 5659.92 1001 / 1001 1385 / 1385 Output Total 1000 / 1000 2450 / 2450 1050 / 1050 Balance 4659.92 / 4659.92 -1449 / -1449 335 / 335 Medical Nutrition Assessment Dietitian: Malnutrition Criteria Met Start: 10/06/23 13:53 Freq: Status: Active Protocol: Document 10/06/23 13:53 SB (Rec: 10/06/23 13:53 SB [id number]) Nutrition Malnutrition Evidence of Malnutrition Exists Yes Malnutrition (severe): Acute Illness/Injury Evidenced By Suboptimal Energy Intake ( Severe),Weight Loss (Severe) Intake Problem Inadequate Oral Intake Etiology related to GI dysfunction Signs/Symptoms as evidence by NPO. Status Active Problem Clinical Problem Acute Disease or Injury Related Malnutrition Etiology severe related to inadequate oral intake and altered GI status Signs/Symptoms as evidence by 2.4% weight loss x 1 week and meeting <50% of estimated energy needs x 1 week. Status Active Problem Recommendation Dietitian Recommendations/Changes Recommend liberalized regular diet, as diet is advanced. Reviewed and approved by Chela John RD, LD Lab / Micro Data 10/08/23 03:41 10/08/23 03:41 Labs: Laboratory Results - last 24 hr 10/08/23 03:41: WBC 16.3 H, RBC 2.99 L, Hgb 8.3 L, Hct 26.0 L, MCV 87.0, MCH 27.8, MCHC 31.9 L, RDW Std Deviation 52.0 H, RDW Coeff of Estelita 17.1 H, Plt Count 208, MPV 9.6, Immature Gran % (Auto) 1.100 H, Neut % (Auto) 90.5 H, Lymph % (Auto) 2.5 L, [place] % (Auto) 5.9, Eos % (Auto) 0.0, Baso % (Auto) 0.0, Absolute Neuts (auto) 14.8 H, Absolute Lymphs (auto) 0.41 L, Nucleated RBC % 0.9, Sodium 142, Potassium 3.5, Chloride 110 H, Carbon Dioxide 25.0, Anion Gap 7, BUN 44 H, Creatinine 1.14, Estim Creat Clear Calc 54.13, Est GFR (MDRD) Af Amer 79, Est GFR (MDRD) Non-Af 66, BUN/Creatinine Ratio 38.6 H, Glucose 101, Calcium 7.3 L Micro: Microbiology 10/06/23 05:00 Urine, Clean Catch Urine Culture - Final Culture exhibits no growth. 10/05/23 19:40 Blood Culture (Wb) - Anticubital Left Blood Culture - Preliminary No growth in 48 hours. 10/05/23 23:30 Wound - Arm Right Skin and Soft Tissue MRSA/MSSA (PCR - Final 10/05/23 18:25 Stool Stool Occult Blood (YAMINI) - Final Occult Blood Positive Rhythm Strip Rhythm Strip: Sinus Tach Rate: 110 Ectopy: PVC(s) Physical Exam Const alert and oriented x3 General Appearance: cooperative Orientation / Consciousness: lethargic HEENT normocephalic, head/scalp atraumatic, moist oral mucous membranes and oropharynx normal Eyes PERRL and EOMs intact bilaterally Neck no lymphadenopathy and supple General: trachea midline Lymph Lymphatic: no lymphadenopathy noted and no lymphedema noted Resp Resp Narrative: diminished breath sounds bibasally, minimal crackles, on 4L of oxygen which is his baseline Effort and Inspection: tachypneic Cardio regular rhythm, S1 normal heart sound, S2 normal heart sound and no murmurs Rate: tachycardic GI normal to inspection, nondistended, normoactive bowel sounds, soft to palpation and non-tender Extremity normal capillary refill, no clubbing, cyanosis or edema and no calf tenderness General Extremity: no tenderness to palpation of joints or extremities Skin Skin Narrative: Numerous bruises on upper extremities bilaterally General Skin Exam: no breakdown Neuro CN's II-XII intact bilaterally, no focal motor deficits and no sensory deficits noted Motor Exam: general weakness Psych thought process normal Mood & Affect: anxious Assessment & Plan Assessment/Plan (1) Pulmonary embolus: (2) Pulmonary neoplasm: (3) Major hemoptysis: PLAN: Plan Patient is an 83-year-old male who presented to [facility] ED with , shortness of breath and dyspnea. Acute blood loss anemia. Differential diagnosis does include upper GI bleed with rapid transit, lower GI bleed secondary to ischemic colitis, diverticular bleed, hemorrhoidal disease. Recommendation upper and lower endoscopy to evaluate his upper and lower GI tract. The CT angiography of the chest and the abdomen pelvis did not show any signs of acute or chronic GI blood loss. 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 He also had multiple polyps that were removed previously so there are multiple reasons for him to bleed in the setting of anticoagulation. He should undergo repeat upper and lower endoscopy. I do not know if patient wants to take a prep if not then hopefully be able to upper endoscopy and possibly enemas. 10/08/2023-his hemoglobin is down to 8.3 from 9.3 without any signs of active bleeding. On his upper endoscopy he was discovered to have 2 ulcers without any stigmata of bleeding. Findings: The examined esophagus was normal. A small hiatal hernia was present. No other significant abnormalities were identified in a careful examination of the stomach. Two non-bleeding cratered duodenal ulcers with no stigmata of bleeding were found in the second portion of the duodenum. The largest lesion was 6 mm in largest dimension. Impression: - Normal esophagus. - Small hiatal hernia. - No gross lesions in the fourth portion of the duodenum. - No specimens collected. -His colonoscopy did have an ulcer in the cecum and some excoriation with ulcerations in the rectum from his previously treated radiation proctitis. Findings: The perianal and digital rectal examinations were normal. A few six mm ulcers were found in the rectum. No bleeding was present. No stigmata of recent bleeding were seen. Multiple small and large-mouthed diverticula were found in the entire colon. To stop active bleeding, three hemostatic clips were successfully placed. Clip logistics management specialist: Lycera. There was no bleeding at the end of the procedure. A 3 mm polyp was found in the sigmoid colon. The polyp was sessile. The polyp was removed with a jumbo cold forceps. Resection and retrieval were complete. Verification of patient identification for the specimen was done. Estimated blood loss was minimal. A 9 mm polyp was found in the transverse colon. The polyp was sessile. The polyp was removed with a cold snare. Resection and retrieval were complete. Verification of patient identification for the specimen was done. Estimated blood loss was minimal. Stool was found in the rectum, in the recto-sigmoid colon, in the sigmoid colon, in the descending colon and in the transverse colon. Impression: - Preparation of the colon was fair. - A few ulcers in the rectum. - Diverticulosis in the entire examined colon. Clips were placed. Clip logistics management specialist: Lycera. - One 3 mm polyp in the sigmoid colon, removed with a jumbo cold forceps. Resected and retrieved. - One 9 mm polyp in the transverse colon, removed with a cold snare. Resected and retrieved. - Stool in the rectum, in the recto-sigmoid colon, in the sigmoid colon, in the descending colon and in the transverse colon. Recommendations: Continue to trend hemoglobin. I would suspect that his bleeding is mostly secondary to colonic bleeding. If his hemoglobin drops below 8 I would recommend to transfuse 1 unit of packed red blood cells. Continue to hold anticoagulation. I will continue to follow. Charges/Coding Visit Charges Inpatient E&M: 32135 Subs Hosp L3
[2023-10-08] MEDS: Budesonide Respules 0.5 MG/2 ML AMPUL.NEB. INHALATION (19:15)
[2023-10-08] MEDS: Atorvastatin Calcium 40 MG Tablet PO (21:22)
[2023-10-08] MEDS: Tamsulosin HCl 0.4 MG Capsule PO (21:22)
[2023-10-08] MEDS: DULoxetine Hcl 30 MG Capsule PO (21:22)
[2023-10-08] MEDS: oxyCODONE 5 MG Tablet PO (21:22)
[2023-10-08 22:08] LABS: Vancomycin, Trough Level 15.6 ug/mL (5.0-15.0)
--- NOTE | 2023-10-08 22:30 | PCM.RX.CS ---
Consult Antibiotic Management Pharmacy has been consulted to manage selected antibiotic: Vancomycin Type of Intervention Type of Consult: Follow-up Suspected Infection Suspected Infection: Other (SEPSIS) Prior Doses of Antibiotics Prior Doses of Antibiotics Received/Current Regimen: Vancomycin 750 mg IV given 10/06 @ 2236, and 10/07 @ 1022 Labs Labs: Sodium 142 mmol/L (136-145) 10/08/23 03:41 Potassium 3.5 mmol/L (3.5-5.1) 10/08/23 03:41 Chloride 110 mmol/L (98-107) H 10/08/23 03:41 Carbon Dioxide 25.0 mmol/L (21.0-32.0) 10/08/23 03:41 Anion Gap 7 (5-15) 10/08/23 03:41 BUN 44 mg/dL (7-18) H 10/08/23 03:41 Creatinine 1.14 mg/dL (0.70-1.30) 10/08/23 03:41 Est GFR (MDRD) Af Amer 79 mL/min (>60) 10/08/23 03:41 Est GFR (MDRD) Non-Af 66 mL/min (>60) 10/08/23 03:41 BUN/Creatinine Ratio 38.6 RATIO (10-20) H 10/08/23 03:41 Glucose 101 mg/dL (74-106) 10/08/23 03:41 Vancomycin Trough 15.6 ug/mL (5.0-15.0) H 10/08/23 21:40 Microbiology Microbiology: Microbiology 10/06/23 05:00 Urine, Clean Catch Urine Culture - Final Culture exhibits no growth. 10/05/23 19:40 Blood Culture (Wb) - Anticubital Left Blood Culture - Preliminary No growth in 48 hours. 10/05/23 23:30 Wound - Arm Right Skin and Soft Tissue MRSA/MSSA (PCR - Final 10/05/23 18:25 Stool Stool Occult Blood (YAMINI) - Final Occult Blood Positive Dosing Weight Weight used for dosin kg Estimated Creatinine Clearance Estimated Creatinine Clearance: ~54 Goal Trough Goal Trough: 15-20 mcg/mL Pharmacy Plan for Drug Dosing Pharmacy Plan for Drug Dosing: Vancomycin trough drawn 11.5 hours after last dose = 15.6, continue current regimen. Pharmacy Service will continue to monitor and adjust dosing as required. Follow-Up Labs Follow-Up Labs: Trough: Vancomycin Date/Time Labs Ordered Labs to be done on [date and time ordered]: 10/10/23 @ 2200
--- NOTE | 2023-10-08 23:20 | CPS ---
Pt placed on a sleep lab BiPAP machine for comfort.
[2023-10-09] VITALS (30 sets, daily range): BP systolic 88–168; BP diastolic 44–105; PULSE 67–95; RESP 16–27; TEMP 36.9–37.9; O2SAT 4–100; BMI 25.4
[2023-10-09 04:14] LABS: Absolute Lymphocyte Count 0.37 X10^3/uL (0.83-4.51); Absolute Neutrophil Count 11.2 X10^3/uL (2.0-7.7); Eosinophil# 0.01 X10^3/uL; Eosinophils% 0.1 % (0-5); Hematocrit 21.4 % (40-54); Hemoglobin 6.6 g/dL (13.0-16.5); Lymphocyte # 0.37 X10^3/ul (0.83-4.51); Mean Corp Hgb Conc 30.8 g/dL (32-36); Mean Corpuscular Hgb 27.5 pg (27.0-32.0); Mean Corpuscular Volume 89.2 fL (80-94); Mean Platelet Vol. 9.7 fl (6.2-12.0); Monocyte# 0.61 X10^3/uL; NRBC Flagged by Analyzer 0.5 % (0-5); Neutrophil # 11.18 X10^3/uL (2.7-7.7); Neutrophil % 90.8 % (47-70); POSITIVE DIFFERENTIAL YES; Platelet Count 182 K/mm3 (150-450); RBC Distribution Width CV 16.8 % (11.6-14.6); RBC Distribution Width SD 51.9 fl (35.1-43.9); White Blood Count 12.3 K/mm3 (4.4-11.0)
[2023-10-09 04:30] LABS: Anion Gap 2 (5-15); BUN 24 mg/dL (7-18); BUN/Creat Ratio 32.7 RATIO (10-20); Calcium,Total 7.4 mg/dL (8.5-10.1); Chloride 112 mmol/L (98-107); Creatinine, Serum 0.74 mg/dL (0.70-1.30); EST Glomerular Filtration Rate 109 mL/min (>60); Est Glom Filt Rate - Afr Amer 132 mL/min (>60); Estimated Creatinine Clearance 77.13 ml/min; Glucose 129 mg/dL (74-106); Potassium 3.3 mmol/L (3.5-5.1); Sodium Level 143 mmol/L (136-145)
--- NOTE | 2023-10-09 05:49 | PCM.HOSP.N ---
Hospitalist Note Hgb decrease to 6.6, following with GI already with evaluations ongoing, will order an additional 2 u PRBC with repeat HH.
[2023-10-09] MEDS: CHLORHEXIDINE GLUC 2% CLOTH 1 EACH TOWELETTE TOPICAL (06:09)
[2023-10-09] MEDS: Metoprolol Tartrate 25 MG Tablet PO ×3 (06:09→22:44)
[2023-10-09] MEDS: Metoclopramide 10 MG/2 ML Vial 5 MG IV ×4 (06:09→22:46)
[2023-10-09] MEDS: Piperacil/Tazobactam 3.375 GM in 0.9% Normal Saline (50mL MB+) 50 ML IV ×3 (06:09→20:18)
--- NOTE | 2023-10-09 06:53 | NM_ITS ---
CLINICAL: 83-year-old male with history of suspected gastrointestinal hemorrhage with presenting low hemoglobin. LABELED BLOOD POOL GASTROINTESTINAL BLEEDING STUDY COMPARISON: CTA of the abdomen pelvis report 10/06/2023 FINDINGS: Following the intravenous administration of 25.0 mCi of 99m Tc Ultratag labeled RBCs, image acquisitions of the anterior-abdomen and pelvis for a total of 60 minutes reveal: 1. Review of 1 minute static and cine acquisitions of the anterior abdomen and pelvis demonstrate no evidence of increased radiopharmaceutical concentration indicative of acute gastrointestinal hemorrhage. 2. Physiologic tracer uptake is noted in the splenic, hepatic, cardiac and major vascular blood pool. NM/GI Bleed Scan IMPRESSION: 1. NEGATIVE 99m Tc ULTRATAG LABELED BLOOD POOL GASTROINTESTINAL BLEEDING EXAMINATION. 2. There is no definitive scintigraphic evidence of gastrointestinal hemorrhage on the current evaluation. Electronically Signed: David Ritter DO at 12:40 EDT ,
[2023-10-09] MEDS: Ipratropium 0.5 MG/2.5 ML SOLUTION INHALATION ×2 (07:40→19:05)
[2023-10-09] MEDS: Budesonide Respules 0.5 MG/2 ML AMPUL.NEB. INHALATION ×2 (07:40→19:05)
[2023-10-09] MEDS: Potassium Chloride Oral Tablet 20 MEQ 60 MEQ PO (09:47)
[2023-10-09] MEDS: Furosemide 40 MG/4 ML Vial IV (10:18)
[2023-10-09] MEDS: 0.9% Saline Lock 10 ML Syringe IV ×3 (10:18→20:30)
--- NOTE | 2023-10-09 10:20 | NURSING ---
pt off floor at this time to [employer]
[2023-10-09] MEDS: Pantoprazole Sodium 40 MG in 0.9% Normal Saline (100mL MB+) 100 ML 330 MG IV ×2 (12:19→20:20)
[2023-10-09] MEDS: Ezetimibe 10 MG Tablet PO (12:20)
[2023-10-09] MEDS: Fluconazole 100 MG Tablet PO (12:20)
[2023-10-09] MEDS: LORazepam 0.5 MG Tablet PO ×2 (12:31→21:10)
[2023-10-09] MEDS: Vancomycin HCl 750 MG in 0.9% Normal Saline (250mL Bag) 250 ML 250 MG IV ×2 (12:47→21:55)
[2023-10-09] MEDS: Acetaminophen 325 MG Tablet 650 MG PO ×2 (13:14→20:18)
[2023-10-09] MEDS: Albuterol 2.5 MG/3 ML VIAL.NEB. INHALATION (13:16)
--- NOTE | 2023-10-09 13:27 | PN_ITS ---
Subjective Subjective Patient seen and examined. He had no active complaints. He said his breathing was better. He did have a good night sleep. Review of systems otherwise negative. Hemoglobin today is down to 6.6. He denies any dark stools or any other symptoms. Review of systems otherwise negative. Objective Data Objective Data Vital Signs: Vital Signs Temp Pulse Resp BP Pulse Ox O2 Del Method O2 Flow Rate 98.7 F 80 26 H 114/68 96 Nasal Cannula 4 10/09/23 10:23 10/09/23 13:17 10/09/23 13:17 10/09/23 12:21 10/09/23 10:23 10/09/23 10:23 10/09/23 10:23 FiO2 30 10/08/23 14:00 Oxygen Flow Rate (L/min) 4 Oxygen Delivery Method Nasal Cannula Weight: 182 lb 1.629 oz Body Mass Index (BMI) 25.4 Intake & Output: Intake and Output for Last 24 Hours 10/07/23 10/08/23 10/09/23 23:59 23:59 23:59 Intake Total 1001 / 1001 2320.75 / 2320.75 491 / 491 Output Total 2450 / 2450 1050 / 1400 2300 / 2300 Balance -1449 / -1449 1270.75 / 920.75 -1809 / -1809 Medical Nutrition Assessment Dietitian: Malnutrition Criteria Met Start: 10/06/23 13:53 Freq: Status: Active Protocol: Document 10/06/23 13:53 SB (Rec: 10/06/23 13:53 SB [id number]) Nutrition Malnutrition Evidence of Malnutrition Exists Yes Malnutrition (severe): Acute Illness/Injury Evidenced By Suboptimal Energy Intake ( Severe),Weight Loss (Severe) Intake Problem Inadequate Oral Intake Etiology related to GI dysfunction Signs/Symptoms as evidence by NPO. Status Active Problem Clinical Problem Acute Disease or Injury Related Malnutrition Etiology severe related to inadequate oral intake and altered GI status Signs/Symptoms as evidence by 2.4% weight loss x 1 week and meeting <50% of estimated energy needs x 1 week. Status Active Problem Recommendation Dietitian Recommendations/Changes Recommend liberalized regular diet, as diet is advanced. Reviewed and approved by Chela John RD, LD Lab / Micro Data 10/09/23 04:00 10/09/23 04:00 Labs: Laboratory Results - last 24 hr 10/06/23 09:09: Crossmatch See Detail 10/08/23 21:40: Vancomycin Trough 15.6 H 10/09/23 04:00: WBC 12.3 H, RBC 2.40 L, Hgb 6.6 L, Hct 21.4 L, MCV 89.2, MCH 27.5, MCHC 30.8 L, RDW Std Deviation 51.9 H, RDW Coeff of Estelita 16.8 H, Plt Count 182, MPV 9.7, Immature Gran % (Auto) 1.100 H, Neut % (Auto) 90.8 H, Lymph % (Auto) 3.0 L, [place] % (Auto) 5.0, Eos % (Auto) 0.1, Baso % (Auto) 0.0, Absolute Neuts (auto) 11.2 H, Absolute Lymphs (auto) 0.37 L, Nucleated RBC % 0.5, Sodium 143, Potassium 3.3 L, Chloride 112 H, Carbon Dioxide 29.0, Anion Gap 2 L, BUN 24 H, Creatinine 0.74, Estim Creat Clear Calc 77.13, Est GFR (MDRD) Af Amer 132, Est GFR (MDRD) Non-Af 109, BUN/Creatinine Ratio 32.7 H, Glucose 129 H, Calcium 7.4 L 10/09/23 06:05: Blood Type O NEGATIVE, Antibody Screen NEGATIVE, Crossmatch See Detail Micro: Microbiology 10/06/23 05:00 Urine, Clean Catch Urine Culture - Final Culture exhibits no growth. 10/05/23 19:40 Blood Culture (Wb) - Anticubital Left Blood Culture - Preliminary No growth in 48 hours. 10/05/23 23:30 Wound - Arm Right Skin and Soft Tissue MRSA/MSSA (PCR - Final 10/05/23 18:25 Stool Stool Occult Blood (YAMINI) - Final Occult Blood Positive Radiography Diagnostic Testing: Radiology Impression GI Bleed Scan Nuclear Medicine 10/09/23 06:53 IMPRESSION: 1. NEGATIVE 99m Tc ULTRATAG LABELED BLOOD POOL GASTROINTESTINAL BLEEDING EXAMINATION. 2. There is no definitive scintigraphic evidence of gastrointestinal hemorrhage on the current evaluation. Electronically Signed: David Ritter DO at 12:40 EDT , Rhythm Strip Rhythm Strip: Sinus Tach Rate: 110 Ectopy: PVC(s) Physical Exam Const alert and oriented x3 Constitutional Narrative: General Appearance: cooperative and well developed Orientation / Consciousness: lethargic HEENT normocephalic, head/scalp atraumatic, moist oral mucous membranes and oropharynx normal Eyes PERRL and EOMs intact bilaterally Neck no lymphadenopathy and supple General: trachea midline Lymph Lymphatic: no lymphadenopathy noted and no lymphedema noted Resp Resp Narrative: diminished breath sounds bibasally, minimal crackles, on 4L of oxygen which is his baseline Effort and Inspection: tachypneic, respiratory distress and labored Auscultation: wheezes expiratory wheezes Cardio regular rhythm, S1 normal heart sound, S2 normal heart sound and no murmurs Rate: tachycardic GI normal to inspection, nondistended, normoactive bowel sounds, soft to palpation and non-tender Extremity normal capillary refill, no clubbing, cyanosis or edema and no calf tenderness General Extremity: no tenderness to palpation of joints or extremities Skin Skin Narrative: Numerous bruises on upper extremities bilaterally General Skin Exam: no breakdown; Negative for skin tear(s) Neuro CN's II-XII intact bilaterally, no focal motor deficits and no sensory deficits noted Motor Exam: general weakness Psych thought process normal, cooperative and affect normal Assessment & Plan Assessment/Plan (1) Anemia: QUALIFIERS: Anemia type: unspecified type Qualified Code(s): D 64.9 - Anemia, unspecified (2) Acidosis, lactic: (3) GI bleed: (4) Sepsis: PLAN: Plan #Acute anemia due to lower GI bleed * GI on board. Per discussion with GI CT angiogram of the abdomen and pelvis done to rule out any small bowel bleeding and this was negative for that but did show abnormal aortic thrombus which is chronic * Patient transfused with a total of 3 units of packed red blood cells. * On IV pantoprazole 40 mg twice daily. * Colonoscopy showed diverticulosis in the entire examined colon and clips were placed and one 3 mm polyp in the sigmoid colon was removed and another 9 mm polyp in the transverse colon was removed. * EGD showed normal esophagus and small hiatal hernia and no gross lesions in the fourth portion of the duodenum * Resumed on clear liquid diet. Continue IV pantoprazole. * Will likely need to discontinue Eliquis permanently. * Hb today is own to 6.6. Will transfuse with another 2 units of PRBCs today. * Keeping NPO for now in case GI decides to scope him again. * Nuclear medicine scan ordered by GI. * #Sepsis * Etiology is not clear. Patient however had elevated lactic acid and had elevated white cell count of 20 on admission. He is on his baseline 4 L of oxygen though he was initiated on BiPAP in the ED because he was very short of breath. I think anxiety may also have driven this as well as the acute on chronic anemia and he is back on his baseline 4 L of oxygen. * He was given a dose of IV vancomycin and Zosyn in the ED but this was not continued on admission. * on IV vancomycin and zosyn. * Continue hydration with IV fluids. * critical care on board * blood and urine cultures pending * wbc has trended down further to 12 today. * He also did hav e mild fever. * will complete a 5 day course of IV antibiotics and dc. * #Chest pain * Patient developed chest pain after he came back from the CT a of the abdomen and pelvis. EKG done showed evidence of subendocardial injury and incomplete left bundle branch block which was new. * Troponins were ordered which are negative x 2. Cardiology consulted and patient placed on sublingual nitroglycerin. * Cardiology on board. Unable to give anticoagulation due to patient's severe anemia. * Sublingual nitroglycerin as needed. Already on high intensity statin though he is n.p.o. now * 2D echo showed normal left ventricular size with EF of 49% * Metoprolol dose increased to 25 mg every 6 hourly per cardiology to help with persistent tachycardia. * #Chronic respiratory failure due to COPD * On admission patient was placed on BiPAP but he was weaned down to his baseline 4 L of oxygen. Due to concern about COPD exacerbation he was started on IV Solu-Medrol. I elected to discontinue this steroids this morning as it can worsen the GI bleed and I do not think the patient has COPD exacerbation as he is down to his baseline 4 L of oxygen and his symptoms can be explained by the acute on chronic anemia. * Continue breathing treatments bronchodilators. Titrate oxygen to maintain saturation above 90%. * remains on 4L of oxygen. * #History of chronic aortic mural thrombus: Eliquis on hold due to GI bleed. Will monitor. 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 Currently stable. Will monitor. # History of depression and anxiety: Cymbalta on hold DVT prophylaxis: SCDs CODE STATUS: DNRCCA Charges/Coding Visit Charges Inpatient E&M: 27730 Subs Hosp L3
[2023-10-09] MEDS: Ensure Plus High Protein 120 ML LIQUID PO ×2 (14:29→20:25)
--- NOTE | 2023-10-09 14:54 | CASEMGMT ---
GILMAR DIAZ NOTE: Hgb 6.6 this AM. Therapy eval reviewed. Pt weak, ambulated 15 ft today, additional therapy recommended. GILMAR DIAZ to room. Pt sitting up in chair in room. BIPAP in place. Per Gem SCHAFER, pt was feeling SOB and feels better with the BIPAP in place. GILMAR DIAZ discussed dc planning and inquired if he feels he may need to go somewhere short-term for therapy before discharging home. Pt shrugged his shoulders. Per Dr Santamaria, pt will be here through the weekend. GILMAR DIAZ informed pt someone would f/u with him on Thursday to see how he is feeling and to discuss discharge planning further. He nodded his head. Connor MESSINA RN, CM
[2023-10-09 17:14] LABS: Hematocrit 30.3 % (40-54); Hemoglobin 9.5 g/dL (13.0-16.5)
[2023-10-09] MEDS: guaiFENesin Dm 10 ML UDC 5 ML PO (18:10)
--- NOTE | 2023-10-09 18:44 | EX.PCM.PN.GI ---
Subjective Subjective Patient has not had any abdominal pain. His hemoglobin was noted to be down to 6.6 this morning. He has not seen any signs or symptoms of GI bleeding overnight or today. He has been off of anticoagulation. Objective Data Objective Data Vital Signs: Vital Signs Temp Pulse Resp BP Pulse Ox O2 Del Method O2 Flow Rate 100.3 F H 87 21 H 117/64 100 CPAP 4 10/09/23 15:59 10/09/23 18:14 10/09/23 15:59 10/09/23 18:14 10/09/23 15:59 10/09/23 15:59 10/09/23 15:59 FiO2 30 10/08/23 14:00 Oxygen Flow Rate (L/min) 4 Oxygen Delivery Method CPAP Weight: 182 lb 1.629 oz Body Mass Index (BMI) 25.4 Intake & Output: Intake and Output for Last 24 Hours 10/07/23 10/08/23 10/09/23 23:59 23:59 23:59 Intake Total 1001 / 1001 2320.75 / 2320.75 1137 / 1137 Output Total 2450 / 2450 1050 / 1400 2750 / 2750 Balance -1449 / -1449 1270.75 / 920.75 -1613 / -1613 Medical Nutrition Assessment Dietitian: Malnutrition Criteria Met Start: 10/06/23 13:53 Freq: Status: Active Protocol: Document 10/06/23 13:53 SB (Rec: 10/06/23 13:53 SB [id number]) Nutrition Malnutrition Evidence of Malnutrition Exists Yes Malnutrition (severe): Acute Illness/Injury Evidenced By Suboptimal Energy Intake ( Severe),Weight Loss (Severe) Intake Problem Inadequate Oral Intake Etiology related to GI dysfunction Signs/Symptoms as evidence by NPO. Status Active Problem Clinical Problem Acute Disease or Injury Related Malnutrition Etiology severe related to inadequate oral intake and altered GI status Signs/Symptoms as evidence by 2.4% weight loss x 1 week and meeting <50% of estimated energy needs x 1 week. Status Active Problem Recommendation Dietitian Recommendations/Changes Recommend liberalized regular diet, as diet is advanced. Reviewed and approved by Chela John RD, LD Lab / Micro Data 10/09/23 16:55 10/09/23 04:00 Labs: Laboratory Results - last 24 hr 10/06/23 09:09: Crossmatch See Detail 10/08/23 21:40: Vancomycin Trough 15.6 H 10/09/23 04:00: WBC 12.3 H, RBC 2.40 L, Hgb 6.6 L, Hct 21.4 L, MCV 89.2, MCH 27.5, MCHC 30.8 L, RDW Std Deviation 51.9 H, RDW Coeff of Estelita 16.8 H, Plt Count 182, MPV 9.7, Immature Gran % (Auto) 1.100 H, Neut % (Auto) 90.8 H, Lymph % (Auto) 3.0 L, [place] % (Auto) 5.0, Eos % (Auto) 0.1, Baso % (Auto) 0.0, Absolute Neuts (auto) 11.2 H, Absolute Lymphs (auto) 0.37 L, Nucleated RBC % 0.5, Sodium 143, Potassium 3.3 L, Chloride 112 H, Carbon Dioxide 29.0, Anion Gap 2 L, BUN 24 H, Creatinine 0.74, Estim Creat Clear Calc 77.13, Est GFR (MDRD) Af Amer 132, Est GFR (MDRD) Non-Af 109, BUN/Creatinine Ratio 32.7 H, Glucose 129 H, Calcium 7.4 L 10/09/23 06:05: Blood Type O NEGATIVE, Antibody Screen NEGATIVE, Crossmatch See Detail 10/09/23 16:55: Hgb 9.5 L, Hct 30.3 L Micro: Microbiology 10/06/23 05:00 Urine, Clean Catch Urine Culture - Final Culture exhibits no growth. 10/05/23 19:40 Blood Culture (Wb) - Anticubital Left Blood Culture - Preliminary No growth in 48 hours. 10/05/23 23:30 Wound - Arm Right Skin and Soft Tissue MRSA/MSSA (PCR - Final 10/05/23 18:25 Stool Stool Occult Blood (YAMINI) - Final Occult Blood Positive Radiography Diagnostic Testing: Radiology Impression GI Bleed Scan Nuclear Medicine 10/09/23 06:53 IMPRESSION: 1. NEGATIVE 99m Tc ULTRATAG LABELED BLOOD POOL GASTROINTESTINAL BLEEDING EXAMINATION. 2. There is no definitive scintigraphic evidence of gastrointestinal hemorrhage on the current evaluation. Electronically Signed: David Ritter DO at 12:40 EDT , Rhythm Strip Rhythm Strip: Sinus Tach Rate: 110 Ectopy: PVC(s) Physical Exam Const alert and oriented x3 Constitutional Narrative: General Appearance: cooperative and well developed Orientation / Consciousness: lethargic HEENT normocephalic, head/scalp atraumatic, moist oral mucous membranes and oropharynx normal Eyes PERRL and EOMs intact bilaterally Neck no lymphadenopathy and supple General: trachea midline Lymph Lymphatic: no lymphadenopathy noted and no lymphedema noted Resp Resp Narrative: diminished breath sounds bibasally, minimal crackles, on 4L of oxygen which is his baseline Effort and Inspection: tachypneic, respiratory distress and labored Auscultation: wheezes expiratory wheezes Cardio regular rhythm, S1 normal heart sound, S2 normal heart sound and no murmurs Rate: tachycardic GI normal to inspection, nondistended, normoactive bowel sounds, soft to palpation and non-tender Extremity normal capillary refill, no clubbing, cyanosis or edema and no calf tenderness General Extremity: no tenderness to palpation of joints or extremities Skin Skin Narrative: Numerous bruises on upper extremities bilaterally General Skin Exam: no breakdown; Negative for skin tear(s) Neuro CN's II-XII intact bilaterally, no focal motor deficits and no sensory deficits noted Motor Exam: general weakness Psych thought process normal, cooperative and affect normal Assessment & Plan Assessment/Plan (1) Pulmonary embolus: (2) Pulmonary neoplasm: (3) Major hemoptysis: PLAN: Plan Patient is an 83-year-old male who presented to [facility] ED with , shortness of breath and dyspnea. Acute blood loss anemia. Differential diagnosis does include upper GI bleed with rapid transit, lower GI bleed secondary to ischemic colitis, diverticular bleed, hemorrhoidal disease. Recommendation upper and lower endoscopy to evaluate his upper and lower GI tract. The CT angiography of the chest and the abdomen pelvis did not show any signs of acute or chronic GI blood loss. 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 He also had multiple polyps that were removed previously so there are multiple reasons for him to bleed in the setting of anticoagulation. He should undergo repeat upper and lower endoscopy. I do not know if patient wants to take a prep if not then hopefully be able to upper endoscopy and possibly enemas. 10/08/2023-his hemoglobin is down to 8.3 from 9.3 without any signs of active bleeding. On his upper endoscopy he was discovered to have 2 ulcers without any stigmata of bleeding. Findings: The examined esophagus was normal. A small hiatal hernia was present. No other significant abnormalities were identified in a careful examination of the stomach. Two non-bleeding cratered duodenal ulcers with no stigmata of bleeding were found in the second portion of the duodenum. The largest lesion was 6 mm in largest dimension. Impression: - Normal esophagus. - Small hiatal hernia. - No gross lesions in the fourth portion of the duodenum. - No specimens collected. -His colonoscopy did have an ulcer in the cecum and some excoriation with ulcerations in the rectum from his previously treated radiation proctitis. Findings: The perianal and digital rectal examinations were normal. A few six mm ulcers were found in the rectum. No bleeding was present. No stigmata of recent bleeding were seen. Multiple small and large-mouthed diverticula were found in the entire colon. To stop active bleeding, three hemostatic clips were successfully placed. 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 There was no bleeding at the end of the procedure. A 3 mm polyp was found in the sigmoid colon. The polyp was sessile. The polyp was removed with a jumbo cold forceps. Resection and retrieval were complete. Verification of patient identification for the specimen was done. Estimated blood loss was minimal. A 9 mm polyp was found in the transverse colon. The polyp was sessile. The polyp was removed with a cold snare. Resection and retrieval were complete. Verification of patient identification for the specimen was done. Estimated blood loss was minimal. Stool was found in the rectum, in the recto-sigmoid colon, in the sigmoid colon, in the descending colon and in the transverse colon. Impression: - Preparation of the colon was fair. - A few ulcers in the rectum. - Diverticulosis in the entire examined colon. Clips were placed. 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 - One 3 mm polyp in the sigmoid colon, removed with a jumbo cold forceps. Resected and retrieved. - One 9 mm polyp in the transverse colon, removed with a cold snare. Resected and retrieved. - Stool in the rectum, in the recto-sigmoid colon, in the sigmoid colon, in the descending colon and in the transverse colon. Recommendations: Continue to trend hemoglobin. I would suspect that his bleeding is mostly secondary to colonic bleeding. If his hemoglobin drops below 8 I would recommend to transfuse 1 unit of packed red blood cells. Continue to hold anticoagulation. I will continue to follow. 10/09/2023-patient was transfused packed red blood cells and his hemoglobin is up to 9.5. I will give him iron transfusion tonight. I suspect that bleeding may be from ulcer that was clipped x 3 in his cecum. Hopefully this will stop on its own. There was no active bleeding seen on his bleeding scan which is a good sign. Continue to follow H&H's. Charges/Coding Visit Charges Inpatient E&M: 57329 Subs Hosp L3
[2023-10-09] MEDS: Sodium Ferric Gluconat/Sucrose 250 MG in 0.9% Normal Saline (250mL Bag) 250 ML 135 MG IV (19:30)
[2023-10-09] MEDS: DULoxetine Hcl 30 MG Capsule PO (20:23)
[2023-10-09] MEDS: Atorvastatin Calcium 40 MG Tablet PO (20:23)
[2023-10-09] MEDS: Tamsulosin HCl 0.4 MG Capsule PO (20:23)
[2023-10-09] MEDS: oxyCODONE 5 MG Tablet PO (22:38)
[2023-10-10] VITALS (19 sets, daily range): BP systolic 102–135; BP diastolic 46–85; PULSE 73–92; RESP 17–28; TEMP 36.3–37.2; O2SAT 88–328; BMI 24.9
[2023-10-10 06:00] LABS: Absolute Lymphocyte Count 0.34 X10^3/uL (0.83-4.51); Absolute Neutrophil Count 11.5 X10^3/uL (2.0-7.7); Basophil# 0.01 X10^3/uL; Basophil% 0.1 % (0-1); Eosinophil# 0.07 X10^3/uL; Eosinophils% 0.6 % (0-5); Hematocrit 28.4 % (40-54); Hemoglobin 9.1 g/dL (13.0-16.5); Lymphocyte # 0.34 X10^3/ul (0.83-4.51); Lymphocyte % 2.7 % (19-41); Mean Corpuscular Hgb 28.4 pg (27.0-32.0); Mean Corpuscular Volume 88.8 fL (80-94); Mean Platelet Vol. 9.4 fl (6.2-12.0); Monocyte# 0.63 X10^3/uL; NRBC Flagged by Analyzer 0.6 % (0-5); Neutrophil # 11.45 X10^3/uL (2.7-7.7); POSITIVE DIFFERENTIAL YES; Platelet Count 181 K/mm3 (150-450); RBC Distribution Width CV 16.5 % (11.6-14.6); RBC Distribution Width SD 51.6 fl (35.1-43.9); White Blood Count 12.6 K/mm3 (4.4-11.0)
[2023-10-10] MEDS: Metoclopramide 10 MG/2 ML Vial 5 MG IV ×3 (06:16→17:55)
[2023-10-10] MEDS: Piperacil/Tazobactam 3.375 GM in 0.9% Normal Saline (50mL MB+) 50 ML IV ×2 (06:16→13:13)
[2023-10-10] MEDS: Metoprolol Tartrate 25 MG Tablet PO ×3 (06:33→17:57)
[2023-10-10 06:55] LABS: Anion Gap 4 (5-15); BUN 17 mg/dL (7-18); BUN/Creat Ratio 24.3 RATIO (10-20); Calcium,Total 7.6 mg/dL (8.5-10.1); Chloride 113 mmol/L (98-107); EST Glomerular Filtration Rate 115 mL/min (>60); Est Glom Filt Rate - Afr Amer 139 mL/min (>60); Estimated Creatinine Clearance 77.13 ml/min; Glucose 114 mg/dL (74-106); Potassium 3.5 mmol/L (3.5-5.1); Sodium Level 144 mmol/L (136-145)
[2023-10-10] MEDS: Ipratropium 0.5 MG/2.5 ML SOLUTION INHALATION ×4 (07:03→19:02)
[2023-10-10] MEDS: Budesonide Respules 0.5 MG/2 ML AMPUL.NEB. INHALATION ×2 (07:03→19:02)
[2023-10-10] MEDS: Pantoprazole Sodium 40 MG in 0.9% Normal Saline (100mL MB+) 100 ML 330 MG IV ×2 (08:20→21:18)
[2023-10-10] MEDS: Ezetimibe 10 MG Tablet PO (08:23)
[2023-10-10] MEDS: Fluconazole 100 MG Tablet PO (08:23)
[2023-10-10] MEDS: oxyCODONE 5 MG Tablet PO ×2 (09:04→15:47)
[2023-10-10] MEDS: LORazepam 0.5 MG Tablet PO ×2 (09:05→23:15)
[2023-10-10] MEDS: Vancomycin HCl 750 MG in 0.9% Normal Saline (250mL Bag) 250 ML 250 MG IV (10:56)
--- NOTE | 2023-10-10 12:53 | PN_ITS ---
Subjective Subjective Patient seen and examined. He had no complaints. He is asking about his CPAP machine as he states the CPAP really helped him. I counseled him that he would need to see pulmonology and have a sleep study to qualify for CPAP. He has remained hemodynamically stable and remains on his baseline 4 L of oxygen. Objective Data Objective Data Vital Signs: Vital Signs Temp Pulse Resp BP Pulse Ox O2 Del Method O2 Flow Rate 99.0 F 92 28 H 102/63 94 Nasal Cannula 4 10/10/23 08:56 10/10/23 11:13 10/10/23 11:50 10/10/23 10:57 10/10/23 11:50 10/10/23 11:50 10/10/23 11:50 FiO2 30 10/08/23 14:00 Oxygen Flow Rate (L/min) 4 Oxygen Delivery Method Nasal Cannula Weight: 178 lb 9.191 oz Body Mass Index (BMI) 24.9 Intake & Output: Intake and Output for Last 24 Hours 10/08/23 10/09/23 10/10/23 23:59 23:59 23:59 Intake Total 2320.75 / 2320.75 1832 / 2312 1055 / 1055 Output Total 1050 / 1400 3000 / 3400 850 / 850 Balance 1270.75 / 920.75 -1168 / -1088 205 / 205 Medical Nutrition Assessment Dietitian: Malnutrition Criteria Met Start: 10/06/23 13:53 Freq: Status: Active Protocol: Document 10/06/23 13:53 SB (Rec: 10/06/23 13:53 SB [id number]) Nutrition Malnutrition Evidence of Malnutrition Exists Yes Malnutrition (severe): Acute Illness/Injury Evidenced By Suboptimal Energy Intake ( Severe),Weight Loss (Severe) Intake Problem Inadequate Oral Intake Etiology related to GI dysfunction Signs/Symptoms as evidence by NPO. Status Active Problem Clinical Problem Acute Disease or Injury Related Malnutrition Etiology severe related to inadequate oral intake and altered GI status Signs/Symptoms as evidence by 2.4% weight loss x 1 week and meeting <50% of estimated energy needs x 1 week. Status Active Problem Recommendation Dietitian Recommendations/Changes Recommend liberalized regular diet, as diet is advanced. Reviewed and approved by Chela John RD, JANINE Lab / Micro Data 10/10/23 05:05 10/10/23 05:05 Labs: Laboratory Results - last 24 hr 10/09/23 06:05: Blood Type O NEGATIVE, Antibody Screen NEGATIVE, Crossmatch See Detail 10/09/23 16:55: Hgb 9.5 L, Hct 30.3 L 10/10/23 05:05: WBC 12.6 H, RBC 3.20 L, Hgb 9.1 L, Hct 28.4 L, MCV 88.8, MCH 28.4, MCHC 32.0, RDW Std Deviation 51.6 H, RDW Coeff of Estelita 16.5 H, Plt Count 181, MPV 9.4, Immature Gran % (Auto) 0.600, Neut % (Auto) 91.0 H, Lymph % (Auto) 2.7 L, [place] % (Auto) 5.0, Eos % (Auto) 0.6, Baso % (Auto) 0.1, Absolute Neuts (auto) 11.5 H, Absolute Lymphs (auto) 0.34 L, Nucleated RBC % 0.6, Sodium 144, Potassium 3.5, Chloride 113 H, Carbon Dioxide 27.0, Anion Gap 4 L, BUN 17, Creatinine 0.70, Estim Creat Clear Calc 77.13, Est GFR (MDRD) Af Amer 139, Est GFR (MDRD) Non-Af 115, BUN/Creatinine Ratio 24.3 H, Glucose 114 H, Calcium 7.6 L Micro: Microbiology 10/06/23 05:00 Urine, Clean Catch Urine Culture - Final Culture exhibits no growth. 10/05/23 19:40 Blood Culture (Wb) - Anticubital Left Blood Culture - Preliminary No growth in 48 hours. 10/05/23 23:30 Wound - Arm Right Skin and Soft Tissue MRSA/MSSA (PCR - Final 10/05/23 18:25 Stool Stool Occult Blood (YAMINI) - Final Occult Blood Positive Rhythm Strip Rhythm Strip: Sinus Tach Rate: 110 Ectopy: PVC(s) Physical Exam Const alert and oriented x3 Constitutional Narrative: General Appearance: cooperative and well developed Orientation / Consciousness: lethargic HEENT normocephalic, head/scalp atraumatic, moist oral mucous membranes and oropharynx normal Eyes PERRL and EOMs intact bilaterally Neck no lymphadenopathy and supple General: trachea midline Lymph Lymphatic: no lymphadenopathy noted and no lymphedema noted Resp Resp Narrative: diminished breath sounds bibasally, minimal crackles, on 4L of oxygen which is his baseline Effort and Inspection: tachypneic, respiratory distress and labored Cardio regular rhythm, S1 normal heart sound, S2 normal heart sound and no murmurs GI normal to inspection, nondistended, normoactive bowel sounds, soft to palpation and non-tender Extremity normal capillary refill, no clubbing, cyanosis or edema and no calf tenderness General Extremity: no tenderness to palpation of joints or extremities Skin Skin Narrative: Numerous bruises on upper extremities bilaterally General Skin Exam: no breakdown; Negative for skin tear(s) Neuro CN's II-XII intact bilaterally, no focal motor deficits and no sensory deficits noted Motor Exam: general weakness Psych thought process normal, cooperative and affect normal Assessment & Plan Assessment/Plan (1) Anemia: QUALIFIERS: Anemia type: unspecified type Qualified Code(s): D 64.9 - Anemia, unspecified (2) Acidosis, lactic: (3) GI bleed: (4) Sepsis: PLAN: Plan #Acute anemia due to lower GI bleed * GI on board. Per discussion with GI CT angiogram of the abdomen and pelvis done to rule out any small bowel bleeding and this was negative for that but did show abnormal aortic thrombus which is chronic * Patient transfused with a total of 3 units of packed red blood cells. * On IV pantoprazole 40 mg twice daily. * Colonoscopy showed diverticulosis in the entire examined colon and clips were placed and one 3 mm polyp in the sigmoid colon was removed and another 9 mm polyp in the transverse colon was removed. * EGD showed normal esophagus and small hiatal hernia and no gross lesions in the fourth portion of the duodenum * Resumed on clear liquid diet. Continue IV pantoprazole. * Will likely need to discontinue Eliquis permanently. * Hb today is own to 6.6. Will transfuse with another 2 units of PRBCs today. * Keeping NPO for now in case GI decides to scope him again. * Nuclear medicine scan ordered by GI showed no evidence of GI hemorrhage. * Hb today is 9.1 * #Sepsis * Etiology is not clear. Patient however had elevated lactic acid and had elevated white cell count of 20 on admission. He is on his baseline 4 L of oxygen though he was initiated on BiPAP in the ED because he was very short of breath. I think anxiety may also have driven this as well as the acute on chronic anemia and he is back on his baseline 4 L of oxygen. * He was given a dose of IV vancomycin and Zosyn in the ED but this was not continued on admission. * on IV vancomycin and zosyn. * critical care on board * blood and urine cultures negative. * wbc is 12.6 today * will dc antibiotics today after completion of a 5 day course of antibiotics * #Chest pain * Patient developed chest pain after he came back from the CT a of the abdomen and pelvis. EKG done showed evidence of subendocardial injury and incomplete left bundle branch block which was new. * Troponins were ordered which are negative x 2. Cardiology consulted and patient placed on sublingual nitroglycerin. * Cardiology on board. Unable to give anticoagulation due to patient's severe anemia. * Sublingual nitroglycerin as needed. Already on high intensity statin though he is n.p.o. now * 2D echo showed normal left ventricular size with EF of 49% * Metoprolol dose increased to 25 mg every 6 hourly per cardiology to help with persistent tachycardia. * #Chronic respiratory failure due to COPD * On admission patient was placed on BiPAP but he was weaned down to his baseline 4 L of oxygen. Due to concern about COPD exacerbation he was started on IV Solu-Medrol. I elected to discontinue this steroids this morning as it can worsen the GI bleed and I do not think the patient has COPD exacerbation as he is down to his baseline 4 L of oxygen and his symptoms can be explained by the acute on chronic anemia. * Continue breathing treatments bronchodilators. Titrate oxygen to maintain saturation above 90%. * remains on 4L of oxygen. * Will order an overnight pulse oximetry as patient says she wants CPAP to help him with his sleep. I counseled him that he will need follow-up with pulmonology for a CPAP to be ordered * #History of chronic aortic mural thrombus: Eliquis on hold due to GI bleed. Will monitor. #History of esophageal candidiasis: on fluconazole #History of lung cancer: Has known squamous cell carcinoma of the left lower lobe. Currently stable. Will monitor. # History of depression and anxiety: Cymbalta on hold DVT prophylaxis: SCDs CODE STATUS: DNRCCA Charges/Coding Visit Charges Inpatient E&M: 38854 Subs Hosp L2
[2023-10-10] MEDS: Ensure Plus High Protein 120 ML LIQUID PO (17:56)
--- NOTE | 2023-10-10 21:28 | PN.GI_ITS ---
Subjective Subjective Patient was transferred out of the ICU. He denies any pain. Is tolerating a diet. He said no more signs and symptoms of bleeding today. Objective Data Objective Data Vital Signs: Vital Signs Temp Pulse Resp BP Pulse Ox O2 Del Method O2 Flow Rate 97.6 F L 88 20 H 119/68 96 Nasal Cannula 4 10/10/23 18:00 10/10/23 19:06 10/10/23 19:06 10/10/23 18:00 10/10/23 19:06 10/10/23 19:28 10/10/23 19:28 FiO2 30 10/08/23 14:00 Oxygen Flow Rate (L/min) 4 Oxygen Delivery Method Nasal Cannula Weight: 178 lb 9.191 oz Body Mass Index (BMI) 24.9 Intake & Output: Intake and Output for Last 24 Hours 10/08/23 10/09/23 10/10/23 23:59 23:59 23:59 Intake Total 2320.75 / 2320.75 1832 / 2312 1405 / 1405 Output Total 1050 / 1400 3000 / 3400 1100 / 1100 Balance 1270.75 / 920.75 -1168 / -1088 305 / 305 Medical Nutrition Assessment Dietitian: Malnutrition Criteria Met Start: 10/06/23 13:53 Freq: Status: Active Protocol: Document 10/06/23 13:53 SB (Rec: 10/06/23 13:53 SB [id number]) Nutrition Malnutrition Evidence of Malnutrition Exists Yes Malnutrition (severe): Acute Illness/Injury Evidenced By Suboptimal Energy Intake ( Severe),Weight Loss (Severe) Intake Problem Inadequate Oral Intake Etiology related to GI dysfunction Signs/Symptoms as evidence by NPO. Status Active Problem Clinical Problem Acute Disease or Injury Related Malnutrition Etiology severe related to inadequate oral intake and altered GI status Signs/Symptoms as evidence by 2.4% weight loss x 1 week and meeting <50% of estimated energy needs x 1 week. Status Active Problem Recommendation Dietitian Recommendations/Changes Recommend liberalized regular diet, as diet is advanced. Reviewed and approved by Chela John RD, LD Lab / Micro Data 10/10/23 05:05 10/10/23 05:05 Labs: Laboratory Results - last 24 hr 10/10/23 05:05: WBC 12.6 H, RBC 3.20 L, Hgb 9.1 L, Hct 28.4 L, MCV 88.8, MCH 28.4, MCHC 32.0, RDW Std Deviation 51.6 H, RDW Coeff of Estelita 16.5 H, Plt Count 181, MPV 9.4, Immature Gran % (Auto) 0.600, Neut % (Auto) 91.0 H, Lymph % (Auto) 2.7 L, [place] % (Auto) 5.0, Eos % (Auto) 0.6, Baso % (Auto) 0.1, Absolute Neuts (auto) 11.5 H, Absolute Lymphs (auto) 0.34 L, Nucleated RBC % 0.6, Sodium 144, Potassium 3.5, Chloride 113 H, Carbon Dioxide 27.0, Anion Gap 4 L, BUN 17, Creatinine 0.70, Estim Creat Clear Calc 77.13, Est GFR (MDRD) Af Amer 139, Est GFR (MDRD) Non-Af 115, BUN/Creatinine Ratio 24.3 H, Glucose 114 H, Calcium 7.6 L Micro: Microbiology 10/06/23 05:00 Urine, Clean Catch Urine Culture - Final Culture exhibits no growth. 10/05/23 19:40 Blood Culture (Wb) - Anticubital Left Blood Culture - Preliminary No growth in 48 hours. 10/05/23 23:30 Wound - Arm Right Skin and Soft Tissue MRSA/MSSA (PCR - Final 10/05/23 18:25 Stool Stool Occult Blood (YAMINI) - Final Occult Blood Positive Rhythm Strip Rhythm Strip: Sinus Tach Rate: 110 Ectopy: PVC(s) Physical Exam Const alert and oriented x3 Constitutional Narrative: General Appearance: cooperative and well developed Orientation / Consciousness: lethargic HEENT normocephalic, head/scalp atraumatic, moist oral mucous membranes and oropharynx normal Eyes PERRL and EOMs intact bilaterally Neck no lymphadenopathy and supple General: trachea midline Lymph Lymphatic: no lymphadenopathy noted and no lymphedema noted Resp Resp Narrative: diminished breath sounds bibasally, minimal crackles, on 4L of oxygen which is his baseline Effort and Inspection: tachypneic, respiratory distress and labored Cardio regular rhythm, S1 normal heart sound, S2 normal heart sound and no murmurs GI normal to inspection, nondistended, normoactive bowel sounds, soft to palpation and non-tender Extremity normal capillary refill, no clubbing, cyanosis or edema and no calf tenderness General Extremity: no tenderness to palpation of joints or extremities Skin Skin Narrative: Numerous bruises on upper extremities bilaterally General Skin Exam: no breakdown; Negative for skin tear(s) Neuro CN's II-XII intact bilaterally, no focal motor deficits and no sensory deficits noted Motor Exam: general weakness Psych thought process normal, cooperative and affect normal Assessment & Plan Assessment/Plan (1) Pulmonary embolus: (2) Pulmonary neoplasm: (3) Major hemoptysis: PLAN: Plan Patient is an 83-year-old male who presented to [facility] [place] ED with , shortness of breath and dyspnea. Acute blood loss anemia. Differential diagnosis does include upper GI bleed with rapid transit, lower GI bleed secondary to ischemic colitis, diverticular bleed, hemorrhoidal disease. Recommendation upper and lower endoscopy to evaluate his upper and lower GI tract. The CT angiography of the chest and the abdomen pelvis did not show any signs of acute or chronic GI blood loss. 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 He also had multiple polyps that were removed previously so there are multiple reasons for him to bleed in the setting of anticoagulation. He should undergo repeat upper and lower endoscopy. I do not know if patient wants to take a prep if not then hopefully be able to upper endoscopy and possibly enemas. 10/08/2023-his hemoglobin is down to 8.3 from 9.3 without any signs of active bleeding. On his upper endoscopy he was discovered to have 2 ulcers without any stigmata of bleeding. Findings: The examined esophagus was normal. A small hiatal hernia was present. No other significant abnormalities were identified in a careful examination of the stomach. Two non-bleeding cratered duodenal ulcers with no stigmata of bleeding were found in the second portion of the duodenum. The largest lesion was 6 mm in largest dimension. Impression: - Normal esophagus. - Small hiatal hernia. - No gross lesions in the fourth portion of the duodenum. - No specimens collected. -His colonoscopy did have an ulcer in the cecum and some excoriation with ulcerations in the rectum from his previously treated radiation proctitis. Findings: The perianal and digital rectal examinations were normal. A few six mm ulcers were found in the rectum. No bleeding was present. No stigmata of recent bleeding were seen. Multiple small and large-mouthed diverticula were found in the entire colon. To stop active bleeding, three hemostatic clips were successfully placed. 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 There was no bleeding at the end of the procedure. A 3 mm polyp was found in the sigmoid colon. The polyp was sessile. The polyp was removed with a jumbo cold forceps. Resection and retrieval were complete. Verification of patient identification for the specimen was done. Estimated blood loss was minimal. A 9 mm polyp was found in the transverse colon. The polyp was sessile. The polyp was removed with a cold snare. Resection and retrieval were complete. Verification of patient identification for the specimen was done. Estimated blood loss was minimal. Stool was found in the rectum, in the recto-sigmoid colon, in the sigmoid colon, in the descending colon and in the transverse colon. Impression: - Preparation of the colon was fair. - A few ulcers in the rectum. - Diverticulosis in the entire examined colon. Clips were placed. 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 - One 3 mm polyp in the sigmoid colon, removed with a jumbo cold forceps. Resected and retrieved. - One 9 mm polyp in the transverse colon, removed with a cold snare. Resected and retrieved. - Stool in the rectum, in the recto-sigmoid colon, in the sigmoid colon, in the descending colon and in the transverse colon. Recommendations: Continue to trend hemoglobin. I would suspect that his bleeding is mostly secondary to colonic bleeding. If his hemoglobin drops below 8 I would recommend to transfuse 1 unit of packed red blood cells. Continue to hold anticoagulation. I will continue to follow. 10/09/2023-patient was transfused packed red blood cells and his hemoglobin is up to 9.5. I will give him iron transfusion tonight. I suspect that bleeding may be from ulcer that was clipped x 3 in his cecum. Hopefully this will stop on its own. There was no active bleeding seen on his bleeding scan which is a good sign. Continue to follow H&H's. 10/10/2023- Patient's hgb is slightly down. follow hemoglobin.He will need capsule endoscopy. Charges/Coding Visit Charges Inpatient E&M: 10793 Subs Hosp L3
[2023-10-10] MEDS: DULoxetine Hcl 30 MG Capsule PO (21:43)
[2023-10-10] MEDS: Atorvastatin Calcium 40 MG Tablet PO (21:43)
[2023-10-10] MEDS: Tamsulosin HCl 0.4 MG Capsule PO (21:43)
[2023-10-10] MEDS: 0.9% Saline Lock 10 ML Syringe IV ×2 (21:43→23:17)
[2023-10-10 23:00] LABS: Vancomycin, Trough Level 13.8 ug/mL (5.0-15.0)
--- NOTE | 2023-10-10 23:20 | CPS ---
Patient Overnight pulse ox trend started on Room Air
[2023-10-11] VITALS (18 sets, daily range): BP systolic 118–130; BP diastolic 55–66; PULSE 69–89; RESP 18–24; TEMP 36.3–36.8; O2SAT 87–99; BMI 25.6
--- NOTE | 2023-10-11 00:21 | PCM.RX.CS ---
Consult Antibiotic Management Pharmacy has been consulted to manage selected antibiotic: Vancomycin Type of Intervention Type of Consult: Follow-up Suspected Infection Suspected Infection: Sepsis Prior Doses of Antibiotics Prior Doses of Antibiotics Received/Current Regimen: Vancomycin 750 mg Q12H given last at 10/09 @ 1056 Labs Labs: Sodium 144 mmol/L (136-145) 10/10/23 05:05 Potassium 3.5 mmol/L (3.5-5.1) 10/10/23 05:05 Chloride 113 mmol/L (98-107) H 10/10/23 05:05 Carbon Dioxide 27.0 mmol/L (21.0-32.0) 10/10/23 05:05 Anion Gap 4 (5-15) L 10/10/23 05:05 BUN 17 mg/dL (7-18) 10/10/23 05:05 Creatinine 0.70 mg/dL (0.70-1.30) 10/10/23 05:05 Est GFR (MDRD) Af Amer 139 mL/min (>60) 10/10/23 05:05 Est GFR (MDRD) Non-Af 115 mL/min (>60) 10/10/23 05:05 BUN/Creatinine Ratio 24.3 RATIO (10-20) H 10/10/23 05:05 Glucose 114 mg/dL (74-106) H 10/10/23 05:05 Vancomycin Trough 13.8 ug/mL (5.0-15.0) 10/10/23 22:13 Microbiology Microbiology: Microbiology 10/06/23 05:00 Urine, Clean Catch Urine Culture - Final Culture exhibits no growth. 10/05/23 19:40 Blood Culture (Wb) - Anticubital Left Blood Culture - Preliminary No growth in 48 hours. 10/05/23 23:30 Wound - Arm Right Skin and Soft Tissue MRSA/MSSA (PCR - Final 10/05/23 18:25 Stool Stool Occult Blood (YAMINI) - Final Occult Blood Positive Dosing Weight Weight used for dosin kg Estimated Creatinine Clearance Estimated Creatinine Clearance: ~77 Goal Trough Goal Trough: 15-20 mcg/mL Pharmacy Plan for Drug Dosing Pharmacy Plan for Drug Dosing: Vancomycin trough = 13.8, will increase dosing to 1000 mg Q12H Pharmacy Service will continue to monitor and adjust dosing as required. Follow-Up Labs Follow-Up Labs: Trough: Vancomycin Date/Time Labs Ordered Labs to be done on [date and time ordered]: 10/12/23 @ 1100
[2023-10-11] MEDS: Metoprolol Tartrate 25 MG Tablet PO ×5 (00:36→23:31)
[2023-10-11] MEDS: Metoclopramide 10 MG/2 ML Vial 5 MG IV ×5 (00:38→23:32)
[2023-10-11] MEDS: 0.9% Saline Lock 10 ML Syringe IV ×3 (00:38→23:32)
[2023-10-11] MEDS: Vancomycin IV 1,000 MG/200 ML BAG 200 MG IV (00:42)
--- NOTE | 2023-10-11 01:37 | NURSING ---
pt w/ no IV access, delayed IV medications. Per pharmacist instruction, run Vancomycin first, then run Zosyn w/ the regular rate 12.5 ml/hr and skip 0600 dose.
[2023-10-11] MEDS: Piperacil/Tazobactam 3.375 GM in 0.9% Normal Saline (50mL MB+) 50 ML IV (02:15)
--- NOTE | 2023-10-11 04:57 | CPS ---
RN placed Patient on 2L NC at 01:00 due to patient complaining of being SOB.
[2023-10-11 05:21] LABS: Absolute Lymphocyte Count 0.38 X10^3/uL (0.83-4.51); Absolute Neutrophil Count 10.4 X10^3/uL (2.0-7.7); Basophil# 0.02 X10^3/uL; Basophil% 0.2 % (0-1); Eosinophil# 0.09 X10^3/uL; Eosinophils% 0.8 % (0-5); Hematocrit 27.3 % (40-54); Hemoglobin 8.4 g/dL (13.0-16.5); Lymphocyte # 0.38 X10^3/ul (0.83-4.51); Lymphocyte % 3.3 % (19-41); Mean Corp Hgb Conc 30.8 g/dL (32-36); Mean Corpuscular Hgb 27.7 pg (27.0-32.0); Mean Corpuscular Volume 90.1 fL (80-94); Mean Platelet Vol. 9.7 fl (6.2-12.0); NRBC Flagged by Analyzer 0.4 % (0-5); Neutrophil # 10.36 X10^3/uL (2.7-7.7); Neutrophil % 88.7 % (47-70); POSITIVE DIFFERENTIAL YES; Platelet Count 214 K/mm3 (150-450); RBC Distribution Width SD 53.4 fl (35.1-43.9); Red Blood Count 3.03 M/mm3 (4.6-6.2); White Blood Count 11.7 K/mm3 (4.4-11.0)
[2023-10-11 05:37] LABS: Anion Gap 2 (5-15); BUN 13 mg/dL (7-18); BUN/Creat Ratio 21.5 RATIO (10-20); Calcium,Total 7.8 mg/dL (8.5-10.1); Chloride 110 mmol/L (98-107); EST Glomerular Filtration Rate 136 mL/min (>60); Est Glom Filt Rate - Afr Amer 165 mL/min (>60); Estimated Creatinine Clearance 77.13 ml/min; Glucose 112 mg/dL (74-106); Potassium 3.6 mmol/L (3.5-5.1); Sodium Level 141 mmol/L (136-145)
[2023-10-11] MEDS: Budesonide Respules 0.5 MG/2 ML AMPUL.NEB. INHALATION ×2 (06:48→19:03)
[2023-10-11] MEDS: Ipratropium 0.5 MG/2.5 ML SOLUTION INHALATION ×4 (06:48→19:03)
[2023-10-11] MEDS: Fluconazole 100 MG Tablet PO (09:30)
[2023-10-11] MEDS: Ezetimibe 10 MG Tablet PO (09:30)
[2023-10-11] MEDS: Pantoprazole Sodium 40 MG in 0.9% Normal Saline (100mL MB+) 100 ML 330 MG IV ×2 (09:30→20:41)
--- NOTE | 2023-10-11 11:18 | PN_ITS ---
Subjective Subjective Patient seen and examined. He complains of not being able to expectorate. He denied any fever, chills, cough, chest pain, palpitations, dizziness, nausea, vomiting or any other symptoms. Review of systems is otherwise negative. He has remained hemodynamically stable. Objective Data Objective Data Vital Signs: Vital Signs Temp Pulse Resp BP Pulse Ox O2 Del Method O2 Flow Rate 98.3 F 79 24 H 126/55 H 99 Nasal Cannula 4 10/11/23 09:24 10/11/23 09:24 10/11/23 09:24 10/11/23 09:24 10/11/23 09:24 10/11/23 09:24 10/11/23 09:24 FiO2 21 10/10/23 21:50 Oxygen Flow Rate (L/min) 4 Oxygen Delivery Method Nasal Cannula Weight: 183 lb 10.321 oz Body Mass Index (BMI) 25.6 Intake & Output: Intake and Output for Last 24 Hours 10/09/23 10/10/23 10/11/23 23:59 23:59 23:59 Intake Total 1832 / 2312 1515 / 1515 660 / 660 Output Total 3000 / 3400 1100 / 1100 700 / 700 Balance -1168 / -1088 415 / 415 -40 / -40 Medical Nutrition Assessment Dietitian: Malnutrition Criteria Met Start: 10/06/23 13:53 Freq: Status: Active Protocol: Document 10/06/23 13:53 SB (Rec: 10/06/23 13:53 SB [id number]) Nutrition Malnutrition Evidence of Malnutrition Exists Yes Malnutrition (severe): Acute Illness/Injury Evidenced By Suboptimal Energy Intake ( Severe),Weight Loss (Severe) Intake Problem Inadequate Oral Intake Etiology related to GI dysfunction Signs/Symptoms as evidence by NPO. Status Active Problem Clinical Problem Acute Disease or Injury Related Malnutrition Etiology severe related to inadequate oral intake and altered GI status Signs/Symptoms as evidence by 2.4% weight loss x 1 week and meeting <50% of estimated energy needs x 1 week. Status Active Problem Recommendation Dietitian Recommendations/Changes Recommend liberalized regular diet, as diet is advanced. Reviewed and approved by Chela Jhon RD, LD Lab / Micro Data 10/11/23 04:40 10/11/23 04:40 Labs: Laboratory Results - last 24 hr 10/10/23 22:13: Vancomycin Trough 13.8 10/11/23 04:40: WBC 11.7 H, RBC 3.03 L, Hgb 8.4 L, Hct 27.3 L, MCV 90.1, MCH 27.7, MCHC 30.8 L, RDW Std Deviation 53.4 H, RDW Coeff of Estelita 17.0 H, Plt Count 214, MPV 9.7, Immature Gran % (Auto) 1.000 H, Neut % (Auto) 88.7 H, Lymph % (Auto) 3.3 L, [place] % (Auto) 6.0, Eos % (Auto) 0.8, Baso % (Auto) 0.2, Absolute Neuts (auto) 10.4 H, Absolute Lymphs (auto) 0.38 L, Nucleated RBC % 0.4, Sodium 141, Potassium 3.6, Chloride 110 H, Carbon Dioxide 29.0, Anion Gap 2 L, BUN 13, Creatinine 0.60 L, Estim Creat Clear Calc 77.13, Est GFR (MDRD) Af Amer 165, Est GFR (MDRD) Non-Af 136, BUN/Creatinine Ratio 21.5 H, Glucose 112 H, Calcium 7.8 L Micro: Microbiology 10/05/23 19:40 Blood Culture (Wb) - Anticubital Left Blood Culture - Final No growth in 5 days. 10/06/23 05:00 Urine, Clean Catch Urine Culture - Final Culture exhibits no growth. 10/05/23 23:30 Wound - Arm Right Skin and Soft Tissue MRSA/MSSA (PCR - Final 10/05/23 18:25 Stool Stool Occult Blood (YAMINI) - Final Occult Blood Positive Rhythm Strip Rhythm Strip: Sinus Tach Rate: 110 Ectopy: PVC(s) Physical Exam Const alert and oriented x3 Constitutional Narrative: General Appearance: cooperative and well developed HEENT normocephalic, head/scalp atraumatic, moist oral mucous membranes and oropharynx normal Eyes PERRL and EOMs intact bilaterally Neck no lymphadenopathy and supple General: trachea midline Lymph Lymphatic: no lymphadenopathy noted and no lymphedema noted Resp Resp Narrative: diminished breath sounds bibasally, bilateral coarse crackles, on 4L of oxygen which is his baseline Cardio regular rhythm, S1 normal heart sound, S2 normal heart sound and no murmurs GI normal to inspection, nondistended, normoactive bowel sounds, soft to palpation and non-tender Extremity normal capillary refill, no clubbing, cyanosis or edema and no calf tenderness General Extremity: no tenderness to palpation of joints or extremities Skin Skin Narrative: Numerous bruises on upper extremities bilaterally General Skin Exam: no breakdown; Negative for skin tear(s) Neuro CN's II-XII intact bilaterally, no focal motor deficits and no sensory deficits noted Motor Exam: general weakness Psych thought process normal, cooperative and affect normal Assessment & Plan Assessment/Plan (1) Anemia: QUALIFIERS: Anemia type: unspecified type Qualified Code(s): D 64.9 - Anemia, unspecified (2) Acidosis, lactic: (3) GI bleed: (4) Sepsis: PLAN: Plan #Acute anemia due to lower GI bleed * GI on board. Per discussion with GI CT angiogram of the abdomen and pelvis done to rule out any small bowel bleeding and this was negative for that but did show abnormal aortic thrombus which is chronic * Patient transfused with a total of 3 units of packed red blood cells. * On IV pantoprazole 40 mg twice daily. * Colonoscopy showed diverticulosis in the entire examined colon and clips were placed and one 3 mm polyp in the sigmoid colon was removed and another 9 mm polyp in the transverse colon was removed. * EGD showed normal esophagus and small hiatal hernia and no gross lesions in the fourth portion of the duodenum * Hb today is 8.4, down from 9.1 yesterday. * eliquis discontinued permanently. * Nuclear medicine scan ordered by GI showed no evidence of GI hemorrhage. * * #Sepsis * resolved. Etiology was not clear. WBC is down and he has completed a 5 day course of IV antibiotics * blood cultures and urine cultures were negative * #Chest pain * Patient developed chest pain after he came back from the CT a of the abdomen and pelvis. EKG done showed evidence of subendocardial injury and incomplete left bundle branch block which was new. * Troponins were ordered which are negative x 2. Cardiology consulted and patient placed on sublingual nitroglycerin. * Cardiology on board. Unable to give anticoagulation due to patient's severe anemia. * Sublingual nitroglycerin as needed. Already on high intensity statin though he is n.p.o. now * 2D echo showed normal left ventricular size with EF of 49% * Metoprolol dose increased to 25 mg every 6 hourly per cardiology to help with persistent tachycardia. * #Chronic respiratory failure due to COPD * On admission patient was placed on BiPAP but he was weaned down to his baseline 4 L of oxygen. Due to concern about COPD exacerbation he was started on IV Solu-Medrol. I elected to discontinue this steroids this morning as it can worsen the GI bleed and I do not think the patient has COPD exacerbation as he is down to his baseline 4 L of oxygen and his symptoms can be explained by the acute on chronic anemia. * Continue breathing treatments bronchodilators. Titrate oxygen to maintain saturation above 90%. * remains on 4L of oxygen. * had overnight pulse oximetry. WIll need to follow up with pulmonology on outpatient basis for sleep tests to see if he qualifies for CPAP. * #History of chronic aortic mural thrombus: Eliquis on hold due to GI bleed. Will monitor. #History of esophageal candidiasis: on fluconazole #History of lung cancer: Has known squamous cell carcinoma of the left lower lobe. Currently stable. Will monitor. # History of depression and anxiety: Cymbalta on hold DVT prophylaxis: SCDs CODE STATUS: DNRCCA Charges/Coding Visit Charges Inpatient E&M: 33633 Subs Hosp L2
[2023-10-11] MEDS: oxyCODONE 5 MG Tablet PO (20:40)
[2023-10-11] MEDS: Ensure Plus High Protein 120 ML LIQUID PO (20:43)
[2023-10-11] MEDS: Tamsulosin HCl 0.4 MG Capsule PO (21:42)
[2023-10-11] MEDS: Atorvastatin Calcium 40 MG Tablet PO (21:43)
[2023-10-11] MEDS: DULoxetine Hcl 30 MG Capsule PO (21:43)
[2023-10-11] MEDS: LORazepam 0.5 MG Tablet PO (21:46)
[2023-10-12] VITALS (15 sets, daily range): BP systolic 114–151; BP diastolic 53–73; PULSE 69–84; RESP 18–30; TEMP 35.8–36.5; O2SAT 90–99; BMI 26.2
[2023-10-12] MEDS: Metoprolol Tartrate 25 MG Tablet PO ×4 (05:58→23:01)
[2023-10-12] MEDS: 0.9% Saline Lock 10 ML Syringe IV ×2 (05:59→22:57)
[2023-10-12] MEDS: Metoclopramide 10 MG/2 ML Vial 5 MG IV ×4 (05:59→23:05)
[2023-10-12 06:34] LABS: Absolute Lymphocyte Count 0.47 X10^3/uL (0.83-4.51); Absolute Neutrophil Count 8.9 X10^3/uL (2.0-7.7); Basophil# 0.01 X10^3/uL; Basophil% 0.1 % (0-1); Hematocrit 28.8 % (40-54); Hemoglobin 8.7 g/dL (13.0-16.5); Lymphocyte # 0.47 X10^3/ul (0.83-4.51); Lymphocyte % 4.6 % (19-41); Mean Corp Hgb Conc 30.2 g/dL (32-36); Mean Corpuscular Volume 92.6 fL (80-94); Mean Platelet Vol. 9.7 fl (6.2-12.0); Monocyte# 0.66 X10^3/uL; Monocyte% 6.4 % (0-10); NRBC Flagged by Analyzer 0.4 % (0-5); Neutrophil # 8.91 X10^3/uL (2.7-7.7); Neutrophil % 86.7 % (47-70); POSITIVE DIFFERENTIAL YES; Platelet Count 229 K/mm3 (150-450); RBC Distribution Width CV 16.9 % (11.6-14.6); RBC Distribution Width SD 54.6 fl (35.1-43.9); Red Blood Count 3.11 M/mm3 (4.6-6.2); White Blood Count 10.3 K/mm3 (4.4-11.0)
[2023-10-12] MEDS: Budesonide Respules 0.5 MG/2 ML AMPUL.NEB. INHALATION ×2 (07:08→19:20)
[2023-10-12 07:11] LABS: Anion Gap 3 (5-15); BUN 11 mg/dL (7-18); BUN/Creat Ratio 18.6 RATIO (10-20); Calcium,Total 7.8 mg/dL (8.5-10.1); Chloride 109 mmol/L (98-107); Creatinine, Serum 0.59 mg/dL (0.70-1.30); EST Glomerular Filtration Rate 140 mL/min (>60); Est Glom Filt Rate - Afr Amer 169 mL/min (>60); Estimated Creatinine Clearance 77.13 ml/min; Glucose 99 mg/dL (74-106); Potassium 3.3 mmol/L (3.5-5.1); Sodium Level 140 mmol/L (136-145)
[2023-10-12] MEDS: Ipratropium 0.5 MG/2.5 ML SOLUTION INHALATION ×3 (07:11→15:02)
[2023-10-12] MEDS: Fluconazole 100 MG Tablet PO (09:25)
[2023-10-12] MEDS: Ezetimibe 10 MG Tablet PO (09:26)
[2023-10-12] MEDS: Ensure Plus High Protein 120 ML LIQUID PO ×2 (09:29→13:19)
[2023-10-12] MEDS: Potassium Chloride Oral Tablet 20 MEQ 40 MEQ PO (09:29)
--- NOTE | 2023-10-12 10:59 | CASEMGMT ---
Social Work SW spoke w/pt in room in regard to discharge plan. SW provided to pt a list from [facility] of half-way facilities in network w/pt's insurance, in pt's preferred geographic area, and complete w/quality and resource use data. Pt would like to go to TCU. SW explained will make a referral. SW asked for additional choices, pt asked if he would need to be transported to other places if TCU cannot take him, SW explained that yes he would need transport. Pt states, I don't like that. SW reiterated to pt that will make TCU referral but do not know about bed availability, will let him know. SW made referral to TCU, will need reviewed and Nancy to let SW know. SALOMON Tran
--- NOTE | 2023-10-12 13:12 | PCM.OP.PRO ---
Procedure Report Date of Procedure: 10/12/23 Assessment & Plan Assessment/Plan (1) History of difficult venous access: PLAN: Midline insertion in right upper arm: Patient identity was verified with two patient identifiers. Hands were sanitized. The patient was positioned supine with right arm at 90 degrees. The patient's upper arm vasculature was assessed using ultrasound, and the right basilic vein was externally marked. An external measurement was obtained of 11 cm. Cap, mask, and prep gloves were donned. The underdrape was placed under the patient's arm. The site was prepped with chlorhexidine, and tourniquet was loosely applied. Prep gloves were discarded, and hands were sanitized. The sterile kit was opened with additional supplies dropped in. Sterile gown and gloves were donned, and the patient was draped. The sterile kit was assembled with all needle, introducer, connector, and catheter flushed with sterile normal saline. The marked site of insertion was anesthetized with 1% lidocaine. Patient tolerated well. The right basilic vein was then accessed using ultrasound guidance and guidewire was inserted to safety yariel. The tourniquet was released. The access needle was removed while securing the guidewire in place. The site was again anesthetized with 1% lidocaine, prior to insertion of introducer sheath and dilator. Patient tolerated well. The catheter was trimmed to a length of 11 cm, and again flushed with sterile normal saline. The catheter was then inserted through the introducer sheath, slowly. There was no resistance on insertion. The introducer sheath was retracted and peeled away, incrementally, while keeping the catheter secured. The catheter was fully inserted leaving 0 cm external. Blood return was verified and flushed needless connector was attached. The midline was flushed with sterile normal saline in a pulsatile fashion and clamped. Total sterile flushes used for the insertion was to 10 ml syringes, one from the kit. Finally, the insertion site was cleaned with chlorhexidine, and the catheter was secured using a StatLock. The site was covered with a Tegaderm CHG Dressing. Baseline arm circumference was obtained at the insertion site and measured 27 cm. The charge nurse is aware that the midline is ready for use. REF: [id number] LOT: [id number] Procedures Radiology Radiology Access Procedures: MIDL
[2023-10-12] MEDS: Pantoprazole Sodium 40 MG Tablet PO ×2 (13:19→21:25)
--- NOTE | 2023-10-12 14:18 | PCM.PN.HOSP ---
Reason for Visit Reason for Visit: Diagnoses Sepsis, unspecified organism (10/05/23) Malignant neoplasm of unspecified part of left bronchus or lung (10/05/23) 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 (10/05/23) Anemia, unspecified (10/05/23) Hyperlipidemia, unspecified (10/05/23) Acidosis, unspecified (10/05/23) Essential (primary) hypertension (10/05/23) Other forms of angina pectoris (10/05/23) Atherosclerotic heart disease of [place] coronary artery without angina pectoris (10/05/23) Atherosclerotic heart disease of [place] coronary artery with other forms of angina pectoris (10/05/23) Other pulmonary embolism without acute cor pulmonale (10/05/23) Ventricular premature depolarization (10/05/23) Chronic obstructive pulmonary disease with (acute) exacerbation (10/05/23) Acute and chronic respiratory failure with hypoxia (10/05/23) Other disorders of lung (10/05/23) Gastrointestinal hemorrhage, unspecified (10/05/23) Hemoptysis (10/05/23) Tachypnea, not elsewhere classified (10/05/23) Other fecal abnormalities (10/05/23) Personal history of other diseases of the circulatory system (10/05/23) Personal history of other specified conditions (10/05/23) Subjective Subjective Patient still short of breath more so with exertion, no chest pain just generally feels weak and unwell Objective Data Objective Data Vital Signs: Vital Signs Temp Pulse Resp BP Pulse Ox O2 Del Method O2 Flow Rate 97.3 F L 77 20 H 150/73 H 98 Nasal Cannula 3.5 10/12/23 13:22 10/12/23 13:22 10/12/23 13:22 10/12/23 13:22 10/12/23 13:22 10/12/23 13:22 10/12/23 13:22 FiO2 21 10/10/23 21:50 Oxygen Flow Rate (L/min) 3.5 Oxygen Delivery Method Nasal Cannula Weight: 85.4 kg Body Mass Index (BMI) 26.2 Intake & Output: Intake and Output for Last 24 Hours 10/10/23 10/11/23 10/12/23 23:59 23:59 23:59 Intake Total 1515 / 1515 1070 / 1070 Output Total 1100 / 1100 1825 / 1825 675 / 675 Balance 415 / 415 -755 / -755 -675 / -675 Medical Nutrition Assessment Dietitian: Malnutrition Criteria Met Start: 10/06/23 13:53 Freq: Status: Active Protocol: Document 10/06/23 13:53 SB (Rec: 10/06/23 13:53 SB [id number]) Nutrition Malnutrition Evidence of Malnutrition Exists Yes Malnutrition (severe): Acute Illness/Injury Evidenced By Suboptimal Energy Intake ( Severe),Weight Loss (Severe) Intake Problem Inadequate Oral Intake Etiology related to GI dysfunction Signs/Symptoms as evidence by NPO. Status Active Problem Clinical Problem Acute Disease or Injury Related Malnutrition Etiology severe related to inadequate oral intake and altered GI status Signs/Symptoms as evidence by 2.4% weight loss x 1 week and meeting <50% of estimated energy needs x 1 week. Status Active Problem Recommendation Dietitian Recommendations/Changes Recommend liberalized regular diet, as diet is advanced. Reviewed and approved by Chela John RD, LD Lab / Micro Data 10/12/23 05:44 10/12/23 05:44 Labs: Laboratory Results - last 24 hr 10/12/23 05:44: WBC 10.3, RBC 3.11 L, Hgb 8.7 L, Hct 28.8 L, MCV 92.6, MCH 28.0, MCHC 30.2 L, RDW Std Deviation 54.6 H, RDW Coeff of [place] 16.9 H, Plt Count 229, MPV 9.7, Immature Gran % (Auto) 1.200 H, Neut % (Auto) 86.7 H, Lymph % (Auto) 4.6 L, [place] % (Auto) 6.4, Eos % (Auto) 1.0, Baso % (Auto) 0.1, Absolute Neuts (auto) 8.9 H, Absolute Lymphs (auto) 0.47 L, Nucleated RBC % 0.4, Sodium 140, Potassium 3.3 L, Chloride 109 H, Carbon Dioxide 28.0, Anion Gap 3 L, BUN 11, Creatinine 0.59 L, Estim Creat Clear Calc 77.13, Est GFR (MDRD) Af Amer 169, Est GFR (MDRD) Non-Af 140, BUN/Creatinine Ratio 18.6, Glucose 99, Calcium 7.8 L Micro: Microbiology 10/05/23 19:40 Blood Culture (Wb) - Anticubital Left Blood Culture - Final No growth in 5 days. 10/06/23 05:00 Urine, Clean Catch Urine Culture - Final Culture exhibits no growth. 10/05/23 23:30 Wound - Arm Right Skin and Soft Tissue MRSA/MSSA (PCR - Final 10/05/23 18:25 Stool Stool Occult Blood (YAMINI) - Final Occult Blood Positive Rhythm Strip Rhythm Strip: Sinus Tach Rate: 110 Ectopy: PVC(s) Physical Exam Narrative General: Alert, oriented, HEENT: Atraumatic, normocephalic Eyes: Anicteric, normal conjunctiva, extraocular movements grossly intact Neck: Supple Respiratory: Diminished bilaterally, does have some conversational dyspnea Cardiovascular: Regular rate GI: Soft, nontender, nondistended Extremities: No edema Musculoskeletal: Moving all extremities Neuro: No overt focal neurological deficits Skin: No rashes appreciated Psych: Cooperative Assessment & Plan Assessment/Plan (1) Anemia: QUALIFIERS: Anemia type: unspecified type Qualified Code(s): D64.9 - Anemia, unspecified (2) GI bleed: PLAN: Plan #Increasing shortness of breath secondary to COPD exacerbation and anemia/chronic hypoxic resp failure on 3.5L home O2/known left sided lung cancer -CTA on presentation with chronic changes more pronounced in lower lobes and no PE -Patient initially treated with steroids and nebs -[place] that given patient's hemoglobin of 6.6 that this exacerbated problem -Patient on Atrovent and inhaled budesonide however not routinely receiving any beta-bernard, suspect this may be part of patient's slow recovery-we will change to DuoNebs but monitor heart rate closely as patient had been tachycardic -Additionally patient takes -Continue to follow with outpatient oncology for lung cancer #Acute anemia 2/2 GI bleed -Hemoglobin 6.6 and required 3 units packed red blood cells with improvement -On September [address] Enamorado cauterized 2 angiodysplastic lesions in duodenum and several similar lesions in the lower colon -GI evaluated and patient had repeat EGD and colonoscopy 10/06. Endoscopy with no acute findings, colonoscopy with a few ulcers in the rectum and polyps that were resected -Hemoglobin overall fairly stable since transfusions, per GI recs patient will need capsule endoscopy on outpatient basis #Hx CAD s/p CABG and episode of chest pain -Evaluated by cardiology while inpatient after patient had chest pain after a contrasted CT scan -Troponins were negative -Beta-bernard increased -Echo performed which was relatively unchanged from previous with EF of 60% #Hx chronic aortic thrombus -Eliquis held due to GI bleed #Hx anxiety/depression -Continue home medications #Chronic BPH with obstruction -Continue home medications # Esophageal candidiasis -Continue fluconazole DVT prophylaxis: SCDs Time spent in the patient's overall evaluation,decision-making process, review of diagnostic data, adjustment of management, discussion with other providers, nursing nursing and ancillary staff involved in patient's care documentation, 40 minutes Charges/Coding Visit Charges Inpatient E&M: 87488 Subs Hosp L2
--- NOTE | 2023-10-12 14:43 | CASEMGMT ---
[facility] can take pt. SW met w/pt and , let them know. SW explained the SNF benefit for Medicare, both state understanding. SW will continue to follow for discharge to TCU when medically ready. SALOMON Tarn
[2023-10-12] MEDS: oxyCODONE 5 MG Tablet PO ×2 (15:42→21:17)
[2023-10-12] MEDS: Ipratropium/Albuterol Sulfate 3 ML AMPUL.NEB INHALATION (19:20)
--- NOTE | 2023-10-12 19:35 | CPS ---
pt declined vest. Pt said vest does not fit correctly, he has one at home thats way less way less complicated, RT had pt do PEP x5 pt had good strong moist non-productive cough.
[2023-10-12] MEDS: Atorvastatin Calcium 40 MG Tablet PO (21:25)
[2023-10-12] MEDS: DULoxetine Hcl 30 MG Capsule PO (21:25)
[2023-10-12] MEDS: Tamsulosin HCl 0.4 MG Capsule PO (21:25)
[2023-10-12] MEDS: LORazepam 0.5 MG Tablet PO (22:56)
[2023-10-13] VITALS (13 sets, daily range): BP systolic 97–131; BP diastolic 58–77; PULSE 60–96; RESP 17–24; TEMP 36.2–36.7; O2SAT 93–98; BMI 25.7
[2023-10-13] MEDS: 0.9% Saline Lock 10 ML Syringe IV ×4 (05:50→22:35)
[2023-10-13] MEDS: Metoclopramide 10 MG/2 ML Vial 5 MG IV (05:50)
[2023-10-13] MEDS: Metoprolol Tartrate 25 MG Tablet PO ×3 (05:50→23:47)
[2023-10-13 06:23] LABS: Absolute Lymphocyte Count 0.51 X10^3/uL (0.83-4.51); Absolute Neutrophil Count 7.8 X10^3/uL (2.0-7.7); Basophil# 0.01 X10^3/uL; Basophil% 0.1 % (0-1); Eosinophil# 0.07 X10^3/uL; Eosinophils% 0.8 % (0-5); Hematocrit 30.2 % (40-54); Lymphocyte # 0.51 X10^3/ul (0.83-4.51); Lymphocyte % 5.7 % (19-41); Mean Corp Hgb Conc 29.8 g/dL (32-36); Mean Corpuscular Hgb 27.4 pg (27.0-32.0); Mean Corpuscular Volume 91.8 fL (80-94); Mean Platelet Vol. 9.5 fl (6.2-12.0); Monocyte# 0.57 X10^3/uL; Monocyte% 6.3 % (0-10); NRBC Flagged by Analyzer 0 % (0-5); Neutrophil # 7.76 X10^3/uL (2.7-7.7); POSITIVE DIFFERENTIAL YES; Platelet Count 231 K/mm3 (150-450); RBC Distribution Width CV 16.9 % (11.6-14.6); RBC Distribution Width SD 54.4 fl (35.1-43.9); Red Blood Count 3.29 M/mm3 (4.6-6.2)
[2023-10-13 06:59] LABS: Anion Gap 4 (5-15); BUN 11 mg/dL (7-18); Calcium,Total 8.1 mg/dL (8.5-10.1); Chloride 108 mmol/L (98-107); Creatinine, Serum 0.55 mg/dL (0.70-1.30); EST Glomerular Filtration Rate 152 mL/min (>60); Est Glom Filt Rate - Afr Amer 183 mL/min (>60); Estimated Creatinine Clearance 77.13 ml/min; Glucose 103 mg/dL (74-106); Magnesium 2.2 mg/dL (1.6-2.6); Sodium Level 140 mmol/L (136-145)
[2023-10-13] MEDS: Budesonide Respules 0.5 MG/2 ML AMPUL.NEB. INHALATION (07:07)
[2023-10-13] MEDS: Ipratropium/Albuterol Sulfate 3 ML AMPUL.NEB INHALATION ×4 (07:07→23:34)
--- NOTE | 2023-10-13 09:03 | PN.HOSP_ITS ---
Reason for Visit Reason for Visit: Diagnoses Sepsis, unspecified organism (10/05/23) Malignant neoplasm of unspecified part of left bronchus or lung (10/05/23) 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 (10/05/23) Anemia, unspecified (10/05/23) Hyperlipidemia, unspecified (10/05/23) Acidosis, unspecified (10/05/23) Essential (primary) hypertension (10/05/23) Other forms of angina pectoris (10/05/23) Atherosclerotic heart disease of [place] coronary artery without angina pectoris (10/05/23) Atherosclerotic heart disease of [place] coronary artery with other forms of angina pectoris (10/05/23) Other pulmonary embolism without acute cor pulmonale (10/05/23) Ventricular premature depolarization (10/05/23) Chronic obstructive pulmonary disease with (acute) exacerbation (10/05/23) Acute and chronic respiratory failure with hypoxia (10/05/23) Other disorders of lung (10/05/23) Gastrointestinal hemorrhage, unspecified (10/05/23) Hemoptysis (10/05/23) Tachypnea, not elsewhere classified (10/05/23) Other fecal abnormalities (10/05/23) Personal history of other diseases of the circulatory system (10/05/23) Personal history of other specified conditions (10/05/23) Subjective Subjective Patient continues to have shortness of breath, feels he is slowly improving but still weak overall and has wet cough. Objective Data Objective Data Vital Signs: Vital Signs Temp Pulse Resp BP Pulse Ox O2 Del Method O2 Flow Rate 97.1 F L 64 17 115/75 94 Nasal Cannula 3.5 10/13/23 05:46 10/13/23 07:07 10/13/23 07:07 10/13/23 05:50 10/13/23 07:07 10/13/23 07:47 10/13/23 07:47 FiO2 21 10/10/23 21:50 Oxygen Flow Rate (L/min) 3.5 Oxygen Delivery Method Nasal Cannula Weight: 83.8 kg Body Mass Index (BMI) 25.7 Intake & Output: Intake and Output for Last 24 Hours 10/11/23 10/12/23 10/13/23 23:59 23:59 23:59 Intake Total 1070 / 1070 120 / 120 Output Total 1825 / 1825 1575 / 1575 400 / 400 Balance -755 / -755 -1455 / -1455 -400 / -400 Medical Nutrition Assessment Dietitian: Malnutrition Criteria Met Start: 10/06/23 13:53 Freq: Status: Active Protocol: Document 10/06/23 13:53 SB (Rec: 10/06/23 13:53 SB [id number]) Nutrition Malnutrition Evidence of Malnutrition Exists Yes Malnutrition (severe): Acute Illness/Injury Evidenced By Suboptimal Energy Intake ( Severe),Weight Loss (Severe) Intake Problem Inadequate Oral Intake Etiology related to GI dysfunction Signs/Symptoms as evidence by NPO. Status Active Problem Clinical Problem Acute Disease or Injury Related Malnutrition Etiology severe related to inadequate oral intake and altered GI status Signs/Symptoms as evidence by 2.4% weight loss x 1 week and meeting <50% of estimated energy needs x 1 week. Status Active Problem Recommendation Dietitian Recommendations/Changes Recommend liberalized regular diet, as diet is advanced. Reviewed and approved by Chela John, LUIS FERNANDO, LD Lab / Micro Data 10/13/23 05:38 10/13/23 05:38 Labs: Laboratory Results - last 24 hr 10/13/23 05:38: WBC 9.0, RBC 3.29 L, Hgb 9.0 L, Hct 30.2 L, MCV 91.8, MCH 27.4, MCHC 29.8 L, RDW Std Deviation 54.4 H, RDW Coeff of [place] 16.9 H, Plt Count 231, MPV 9.5, Immature Gran % (Auto) 1.100 H, Neut % (Auto) 86.0 H, Lymph % (Auto) 5.7 L, [place] % (Auto) 6.3, Eos % (Auto) 0.8, Baso % (Auto) 0.1, Absolute Neuts (auto) 7.8 H, Absolute Lymphs (auto) 0.51 L, Nucleated RBC % 0, Sodium 140, Potassium 4.0, Chloride 108 H, Carbon Dioxide 28.0, Anion Gap 4 L, BUN 11, C reatinine 0.55 L, Estim Creat Clear Calc 77.13, Est GFR (MDRD) Af Amer 183, Est GFR (MDRD) Non-Af 152, BUN/Creatinine Ratio 20.0, Glucose 103, Calcium 8.1 L, Magnesium 2.2 Micro: Microbiology 10/05/23 19:40 Blood Culture (Wb) - Anticubital Left Blood Culture - Final No growth in 5 days. 10/06/23 05:00 Urine, Clean Catch Urine Culture - Final Culture exhibits no growth. 10/05/23 23:30 Wound - Arm Right Skin and Soft Tissue MRSA/MSSA (PCR - Final 10/05/23 18:25 Stool Stool Occult Blood (YAMINI) - Final Occult Blood Positive Rhythm Strip Rhythm Strip: Sinus Tach Rate: 110 Ectopy: PVC(s) Physical Exam Narrative General: Alert, oriented HEENT: Atraumatic, normocephalic Eyes: Anicteric, normal conjunctiva, extraocular movements grossly intact Neck: Supple Respiratory: Still somewhat conversationally dyspneic, diminished bilaterally Cardiovascular: Regular rate GI: Soft, nontender, nondistended Extremities: 1+ bilateral lower extremity edema Musculoskeletal: Moving all extremities Neuro: No overt focal neurological deficits Skin: No rashes appreciated Psych: Cooperative Assessment & Plan Assessment/Plan (1) Anemia: QUALIFIERS: Anemia type: unspecified type Qualified Code(s): D 64.9 - Anemia, unspecified (2) GI bleed: PLAN: Plan #Increasing shortness of breath secondary to COPD exacerbation and anemia/chronic hypoxic resp failure on 3.5L home O2/known left sided lung cancer -CTA on presentation with chronic changes more pronounced in lower lobes and no PE -Patient initially treated with steroids and nebs -[place] that given patient's hemoglobin of 6.6 that this exacerbated problem -Patient on Atrovent and inhaled budesonide however not routinely receiving any beta-bernard, suspect this may be part of patient's slow recovery-we will change to DuoNebs but monitor heart rate closely as patient had been tachycardic -Additionally patient takes -Continue to follow with outpatient oncology for lung cancer -10/12: Patient very slow to improve, does seem to be doing better with the DuoNebs, was on 10 mg chronically of prednisone at home on top of his inhaled steroids so this was restarted, patient does have lower extremity edema and a bit of a wet cough and seems almost fluid overloaded, echo on the fourth did show his EF was at the lower limits of normal, will give dose of Lasix and assess for improvement. #Acute anemia 2/2 GI bleed -Hemoglobin 6.6 and required 3 units packed red blood cells with improvement -On September [address] Enamorado cauterized 2 angiodysplastic lesions in duodenum and several similar lesions in the lower colon -GI evaluated and patient had repeat EGD and colonoscopy 10/06. Endoscopy with no acute findings, colonoscopy with a few ulcers in the rectum and polyps that were resected -Hemoglobin overall fairly stable since transfusions, per GI recs patient will need capsule endoscopy on outpatient basis -10/12: Patient with stable hemoglobin today, continue to monitor CBC and for signs of bleeding #Hx CAD s/p CABG and episode of chest pain -Evaluated by cardiology while inpatient after patient had chest pain after a contrasted CT scan -Troponins were negative -Beta-bernard increased -Echo performed which was relatively unchanged from previous with EF of 60% -10/12: Not having any chest pain, does appear fluid overloaded and on reviewing echo from 10/03 appears patient's EF is actually lower limit of normal so he is going to receive IV Lasix to see if this helps Chronic medical problems: #Hx chronic aortic thrombus -Eliquis held due to GI bleed #Hx anxiety/depression -Continue home medications #Chronic BPH with obstruction -Continue home medications # Esophageal candidiasis -Continue fluconazole DVT prophylaxis: SCDs Time spent in the patient's overall evaluation,decision-making process, review of diagnostic data, adjustment of management, discussion with other providers, nursing nursing and ancillary staff involved in patient's care documentation, 36 minutes Charges/Coding Visit Charges Inpatient E&M: [address] [facility] Hosp L2
[2023-10-13] MEDS: Furosemide 20 MG/2 ML VIAL IV (09:51)
[2023-10-13] MEDS: Fluconazole 100 MG Tablet PO (09:51)
[2023-10-13] MEDS: Pantoprazole Sodium 40 MG Tablet PO ×2 (09:51→22:35)
[2023-10-13] MEDS: predniSONE 10 MG Tablet PO (09:51)
[2023-10-13] MEDS: Ezetimibe 10 MG Tablet PO (09:51)
[2023-10-13] MEDS: oxyCODONE 5 MG Tablet PO (10:44)
[2023-10-13] MEDS: Ensure Plus High Protein 120 ML LIQUID PO (13:48)
--- NOTE | 2023-10-13 15:03 | PCM.HOSP.N ---
Hospitalist Note Went to reevaluate patient this afternoon post Lasix and patient having some increased shortness of breath and scattered wheezing and said he feels like his COPD is flaring. Will get ABG, chest x-ray and will reinitiate IV steroids and azithromycin and treat as another COPD exacerbation. Patient still on 3.5 L at this time, can always consider BiPAP for work of breathing if necessary. Presently not in any overt respiratory distress but does have increased respiratory effort compared to this morning despite Lasix.
--- NOTE | 2023-10-13 15:10 | RAD_ITS ---
INDICATION: increased SOB EXAMINATION/TECHNIQUE: X-RAY - XR Chest 1 View COMPARISON: 09/28/2023 FINDINGS: LIFE-SUPPORT AND LINES: 1. No life-support noted. 2. Postoperative changes of prior median sternotomy with vascular clips present. HEART AND VESSELS: The cardiac silhouette, pulmonary vasculature have normal appearance. No evidence of congestive failure. LUNGS AND PLEURAL SPACES: Extensive bibasilar atelectasis and scarring greater on the LEFT than RIGHT. There is an area of soft tissue density at the LEFT base as noted on prior exam with negligible interval change, currently measuring approximately 2.6 x 1.7 cm. Bullous disease and areas of scar are present bilaterally. Pleural plaque and calcification noted on the RIGHT which is stable. There is blunting LEFT CP angle due to pleural thickening and scar versus small pleural effusion. MEDIASTINUM AND HILAR REGIONS: No masses adenopathy noted. No areas of calcification. Visualized upper airway is normal in position. BONY ELEMENTS: No acute bony changes noted. RAD/Chest 1 View (Portable) IMPRESSION: 1. Postop change of prior CABG. 2. Stable appearance of extensive pleural-parenchymal scar and pleural thickening greatest at the LEFT lung base. Partially obscured nodule versus focal area of rounded atelectasis at the LEFT base measuring approximately 2.6 x 1.7 cm. Findings are similar to prior exam. 3. Pleural thickening versus small pleural fluid collection on the LEFT. Electronically Signed: David Escalera MD at 21:01 EDT ,
[2023-10-13 16:10] LABS: Allen Test Positive; Base Excess 3 mmol/L (-2 to +2); Bicarbonate 26.9 mmol/L (22-26); Blood Gas Specimen Type ART; Mode Not entered; O2 Delivery Device Cannula; PO2 73 mmHG (75-100); SITE L Radial; SO2 95 % (95-99); Total Carbon Dioxide 28 mmol/L; pCO2 38.2 mmHg (35-45); pH 7.46 (7.35-7.45)
[2023-10-13] MEDS: Azithromycin 250 MG Tablet 500 MG PO (16:23)
[2023-10-13] MEDS: DULoxetine Hcl 30 MG Capsule PO (22:34)
[2023-10-13] MEDS: Tamsulosin HCl 0.4 MG Capsule PO (22:34)
[2023-10-13] MEDS: LORazepam 0.5 MG Tablet PO (22:34)
[2023-10-13] MEDS: Atorvastatin Calcium 40 MG Tablet PO (22:35)
[2023-10-14] VITALS (19 sets, daily range): BP systolic 112–135; BP diastolic 53–76; PULSE 63–93; RESP 16–20; TEMP 36–37; O2SAT 95–99; BMI 25.4
--- NOTE | 2023-10-14 00:20 | CPS ---
patient requested not to wear bipap tonight
[2023-10-14] MEDS: Metoprolol Tartrate 25 MG Tablet PO ×4 (05:32→23:47)
[2023-10-14 05:43] LABS: Absolute Lymphocyte Count 0.26 X10^3/uL (0.83-4.51); Absolute Neutrophil Count 6.6 X10^3/uL (2.0-7.7); Hematocrit 31.5 % (40-54); Hemoglobin 9.6 g/dL (13.0-16.5); Lymphocyte # 0.26 X10^3/ul (0.83-4.51); Lymphocyte % 3.7 % (19-41); Mean Corp Hgb Conc 30.5 g/dL (32-36); Mean Corpuscular Hgb 28.1 pg (27.0-32.0); Mean Corpuscular Volume 92.1 fL (80-94); Monocyte# 0.07 X10^3/uL; NRBC Flagged by Analyzer 0 % (0-5); Neutrophil % 94.4 % (47-70); POSITIVE DIFFERENTIAL YES; Platelet Count 252 K/mm3 (150-450); RBC Distribution Width CV 16.6 % (11.6-14.6); RBC Distribution Width SD 55.4 fl (35.1-43.9); Red Blood Count 3.42 M/mm3 (4.6-6.2)
[2023-10-14 06:34] LABS: Anion Gap 7 (5-15); BUN 14 mg/dL (7-18); BUN/Creat Ratio 15.8 RATIO (10-20); Calcium,Total 8.1 mg/dL (8.5-10.1); Chloride 106 mmol/L (98-107); Creatinine, Serum 0.89 mg/dL (0.70-1.30); EST Glomerular Filtration Rate 88 mL/min (>60); Est Glom Filt Rate - Afr Amer 106 mL/min (>60); Estimated Creatinine Clearance 69.33 ml/min; Glucose 196 mg/dL (74-106); Potassium 4.7 mmol/L (3.5-5.1); Sodium Level 139 mmol/L (136-145)
[2023-10-14] MEDS: Ipratropium/Albuterol Sulfate 3 ML AMPUL.NEB INHALATION ×4 (07:06→22:42)
[2023-10-14] MEDS: Azithromycin 250 MG Tablet 500 MG PO (09:50)
[2023-10-14] MEDS: Fluconazole 100 MG Tablet PO (09:51)
[2023-10-14] MEDS: Pantoprazole Sodium 40 MG Tablet PO ×2 (09:52→22:03)
[2023-10-14] MEDS: Ezetimibe 10 MG Tablet PO (09:52)
[2023-10-14] MEDS: Ensure Plus High Protein 120 ML LIQUID PO ×3 (09:53→17:10)
--- NOTE | 2023-10-14 12:25 | VDLE_ITS ---
Reason For Study: SWELLING RIGHT LEFT GSV is normal. GSV is normal. CFV is compressible, spontaneous, phasic, CFV is compressible, spontaneous, phasic, competent and demonstrates normal competent, and demonstrates normal augmentation. augmentation. FV is compressible, spontaneous, phasic, FV is compressible, spontaneous, phasic, competent and demonstrates normal competent and demonstrates normal augmentation. augmentation. POP V is compressible, spontaneous, phasic, POP V is compressible, spontaneous, phasic, competent and demonstrates normal competent and demonstrates normal augmentation. augmentation. T/P Trunk is compressible. T/P Trunk is compressible. PTV is compressible. PTV is compressible. RT PerV is compressible. LT PerV is compressible. Procedure This is a venous duplex using B-mode, color flow and spectral Doppler. Exam performed portable in patient room. PT had difficulty tolerating probe pressure. A preliminary report was called and/or faxed to [facility]. VL/Venous Duplex US - [place] Extrem Interpretation Summary Deep veins of the bilateral lower extremities are patent and compressible segme ntally. There is no evidence of bilateral lower extremity deep vein thrombosis. The bilateral great saphenous veins appear patent and compressible segmentally. Ordering Physician: Etta Edmondson Referring Physician: Dillan Cummins Performed By: Renetta Olivas RDCS, RVT
[2023-10-14] MEDS: Furosemide 20 MG/2 ML VIAL IV (13:12)
[2023-10-14] MEDS: 0.9% Saline Lock 10 ML Syringe IV ×3 (13:12→22:03)
--- NOTE | 2023-10-14 14:38 | PCM.PN.HOSP ---
Reason for Visit Reason for Visit: Diagnoses Sepsis, unspecified organism (10/05/23) Malignant neoplasm of unspecified part of left bronchus or lung (10/05/23) 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 (10/05/23) Anemia, unspecified (10/05/23) Hyperlipidemia, unspecified (10/05/23) Acidosis, unspecified (10/05/23) Essential (primary) hypertension (10/05/23) Other forms of angina pectoris (10/05/23) Atherosclerotic heart disease of [place] coronary artery without angina pectoris (10/05/23) Atherosclerotic heart disease of [place] coronary artery with other forms of angina pectoris (10/05/23) Other pulmonary embolism without acute cor pulmonale (10/05/23) Ventricular premature depolarization (10/05/23) Chronic obstructive pulmonary disease with (acute) exacerbation (10/05/23) Acute and chronic respiratory failure with hypoxia (10/05/23) Other disorders of lung (10/05/23) Gastrointestinal hemorrhage, unspecified (10/05/23) Hemoptysis (10/05/23) Tachypnea, not elsewhere classified (10/05/23) Other fecal abnormalities (10/05/23) Personal history of other diseases of the circulatory system (10/05/23) Personal history of other specified conditions (10/05/23) Subjective Subjective Still short of breath above baseline but improved somewhat from yesterday, still coughing, still some swelling in lower extremities Objective Data Objective Data Vital Signs: Vital Signs Temp Pulse Resp BP Pulse Ox O2 Del Method O2 Flow Rate 98 F 93 18 135/73 H 99 Nasal Cannula 3.5 10/14/23 12:27 10/14/23 12:29 10/14/23 12:27 10/14/23 12:27 10/14/23 13:21 10/14/23 12:27 10/14/23 13:21 FiO2 21 10/10/23 21:50 Oxygen Flow Rate (L/min) 3.5 Oxygen Delivery Method Nasal Cannula Weight: 82.9 kg Body Mass Index (BMI) 25.4 Intake & Output: Intake and Output for Last 24 Hours 10/12/23 10/13/23 10/14/23 23:59 23:59 23:59 Intake Total 120 / 120 1200 / 1200 400 / 400 Output Total 1575 / 1575 1650 / 1650 400 / 400 Balance -1455 / -1455 -450 / -450 0 / 0 Medical Nutrition Assessment Dietitian: Malnutrition Criteria Met Start: 10/06/23 13:53 Freq: Status: Active Protocol: Document 10/06/23 13:53 SB (Rec: 10/06/23 13:53 SB [id number]) Nutrition Malnutrition Evidence of Malnutrition Exists Yes Malnutrition (severe): Acute Illness/Injury Evidenced By Suboptimal Energy Intake ( Severe),Weight Loss (Severe) Intake Problem Inadequate Oral Intake Etiology related to GI dysfunction Signs/Symptoms as evidence by NPO. Status Active Problem Clinical Problem Acute Disease or Injury Related Malnutrition Etiology severe related to inadequate oral intake and altered GI status Signs/Symptoms as evidence by 2.4% weight loss x 1 week and meeting <50% of estimated energy needs x 1 week. Status Active Problem Recommendation Dietitian Recommendations/Changes Recommend liberalized regular diet, as diet is advanced. Reviewed and approved by Chela John, LUIS FERNANDO, LD Lab / Micro Data 10/14/23 05:11 10/14/23 05:11 Labs: Laboratory Results - last 24 hr 10/14/23 05:11: WBC 7.0, RBC 3.42 L, Hgb 9.6 L, Hct 31.5 L, MCV 92.1, MCH 28.1, MCHC 30.5 L, RDW Std Deviation 55.4 H, RDW Coeff of [place]elita 16.6 H, Plt Count 252, MPV 10.0, Immature Gran % (Auto) 0.900, Neut % (Auto) 94.4 H, Lymph % (Auto) 3.7 L, [place] % (Auto) 1.0, Eos % (Auto) 0.0, Baso % (Auto) 0.0, Absolute Neuts (auto) 6.6, Absolute Lymphs (auto) 0.26 L, Nucleated RBC % 0, Sodium 139, Potassium 4.7, Chloride 106, Carbon Dioxide 26.0, Anion Gap 7, BUN 14, Creatinine 0.89, Estim Creat Clear Calc 69.33, Est GFR (MDRD) Af Amer 106, Est GFR (MDRD) Non-Af 88, BUN/Creatinine Ratio 15.8, Glucose 196 H, Calcium 8.1 L Micro: Microbiology 10/05/23 19:40 Blood Culture (Wb) - Anticubital Left Blood Culture - Final No growth in 5 days. 10/06/23 05:00 Urine, Clean Catch Urine Culture - Final Culture exhibits no growth. 10/05/23 23:30 Wound - Arm Right Skin and Soft Tissue MRSA/MSSA (PCR - Final 10/05/23 18:25 Stool Stool Occult Blood (YAMINI) - Final Occult Blood Positive ABG Data ABG results: ABG 10/13/23 16:05 Specimen Type ART Sample Site L Radial pH 7.46 H Bicarbonate Actual 26.9 H Total CO2 28 Base Excess 3 H O2 Saturation 95 O2 % 4.0 ABG pCO2 38.2 ABG pO2 73 L [place] Test Positive O2 Delivery Device Cannula Vent Mode Not entered Radiography Diagnostic Testing: Radiology Impression Chest X-Ray 10/13/23 15:10 IMPRESSION: 1. Postop change of prior CABG. 2. Stable appearance of extensive pleural-parenchymal scar and pleural thickening greatest at the LEFT lung base. Partially obscured nodule versus focal area of rounded atelectasis at the LEFT base measuring approximately 2.6 x 1.7 cm. Findings are similar to prior exam. 3. Pleural thickening versus small pleural fluid collection on the LEFT. Electronically Signed: David Escalera MD at 21:01 EDT , Rhythm Strip Rhythm Strip: Sinus Tach Rate: 110 Ectopy: PVC(s) Physical Exam Narrative General: Alert, oriented HEENT: Atraumatic, normocephalic Eyes: Anicteric, normal conjunctiva, extraocular movements grossly intact Neck: Supple Respiratory: Diminished bilaterally, work of breathing is somewhat improved Cardiovascular: Regular rate GI: Soft, nontender, nondistended Extremities: 1+ bilateral lower extremity edema right greater than left Musculoskeletal: Moving all extremities Neuro: No overt focal neurological deficits Skin: No rashes appreciated Psych: Cooperative Assessment & Plan Assessment/Plan (1) Anemia: QUALIFIERS: Anemia type: unspecified type Qualified Code(s): D64.9 - Anemia, unspecified (2) GI bleed: PLAN: Plan #Increasing shortness of breath secondary to COPD exacerbation and anemia/chronic hypoxic resp failure on 3.5L home O2/known left sided lung cancer -CTA on presentation with chronic changes more pronounced in lower lobes and no PE -Patient initially treated with steroids and nebs -[place] that given patient's hemoglobin of 6.6 that this exacerbated problem -Patient on Atrovent and inhaled budesonide however not routinely receiving any beta-bernard, suspect this may be part of patient's slow recovery-we will change to DuoNebs but monitor heart rate closely as patient had been tachycardic -Additionally patient takes -Continue to follow with outpatient oncology for lung cancer -10/12: Patient very slow to improve, does seem to be doing better with the DuoNebs, was on 10 mg chronically of prednisone at home on top of his inhaled steroids so this was restarted, patient does have lower extremity edema and a bit of a wet cough and seems almost fluid overloaded, echo on the fourth did show his EF was at the lower limits of normal, will give dose of Lasix and assess for improvement. -10/13: Patient started on IV steroids yesterday and IV azithromycin for acute exacerbation of COPD and has begun to improve though still does have increased work of breathing. Suspect that patient will need prednisone taper on discharge to help decrease risk of short-term recurrence. Continue nebs. Additionally also seems to have some continued lower extremity swelling's will give another dose of one-time Lasix # History of PE -Per patient and his patient had history of PE which is why he was on Eliquis -Symptoms were consistent with COPD exacerbation however he does have right leg slightly more swollen compared to left so we will get duplex -Did discuss with GI and patient okay to resume Eliquis and monitor for any recurrent bleeding #Acute anemia 2/2 GI bleed -Hemoglobin 6.6 and required 3 units packed red blood cells with improvement -On September [address] Enamorado cauterized 2 angiodysplastic lesions in duodenum and several similar lesions in the lower colon -GI evaluated and patient had repeat EGD and colonoscopy 10/06. Endoscopy with no acute findings, colonoscopy with a few ulcers in the rectum and polyps that were resected -Hemoglobin overall fairly stable since transfusions, per GI recs patient will need capsule endoscopy on outpatient basis -10/12: Patient with stable hemoglobin today, continue to monitor CBC and for signs of bleeding -10/13: Hemoglobin stable, discussed with GI and it was recommended to continue to hold aspirin however can retrial Eliquis while patient is still in hospital to assess for any further bleeding #Hx CAD s/p CABG and episode of chest pain -Evaluated by cardiology while inpatient after patient had chest pain after a contrasted CT scan -Troponins were negative -Beta-bernard increased -Echo performed which was relatively unchanged from previous with EF of 60% -10/12: Not having any chest pain, does appear fluid overloaded and on reviewing echo from 10/03 appears patient's EF is actually lower limit of normal so he is going to receive IV Lasix to see if this helps -10/13: Holding aspirin, restarting Eliquis. Giving another one-time dose of Lasix. Weight had been up and decreased after one-time dose of Lasix but appears to not be back to baseline so suspect patient still has some additional fluid contributing to shortness of breath, another one-time dose of Lasix ordered Chronic medical problems: #Hx chronic aortic thrombus -Eliquis held due to GI bleed -10/13: Eliquis resumed #Hx anxiety/depression -Continue home medications #Chronic BPH with obstruction -Continue home medications # Esophageal candidiasis -Continue fluconazole DVT prophylaxis: SCDs Time spent in the patient's overall evaluation,decision-making process, review of diagnostic data, adjustment of management, discussion with other providers, nursing nursing and ancillary staff involved in patient's care documentation, 37 minutes Charges/Coding Visit Charges Inpatient E&M: 40244 Subs Hosp L2
[2023-10-14] MEDS: Tamsulosin HCl 0.4 MG Capsule PO (20:30)
[2023-10-14] MEDS: Atorvastatin Calcium 40 MG Tablet PO (22:03)
[2023-10-14] MEDS: APIXABAN 5 MG TABLET PO (22:03)
[2023-10-14] MEDS: DULoxetine Hcl 30 MG Capsule PO (22:03)
[2023-10-14] MEDS: LORazepam 0.5 MG Tablet PO (22:03)
[2023-10-15] VITALS (13 sets, daily range): BP systolic 99–129; BP diastolic 42–68; PULSE 61–94; RESP 16–20; TEMP 36.1–36.7; O2SAT 95–100; BMI 24.6
[2023-10-15] MEDS: Ipratropium/Albuterol Sulfate 3 ML AMPUL.NEB INHALATION (02:43)
[2023-10-15 05:48] LABS: Absolute Lymphocyte Count 0.25 X10^3/uL (0.83-4.51); Absolute Neutrophil Count 9.4 X10^3/uL (2.0-7.7); Basophil# 0.01 X10^3/uL; Basophil% 0.1 % (0-1); Hematocrit 27.8 % (40-54); Hemoglobin 9.3 g/dL (13.0-16.5); Lymphocyte # 0.25 X10^3/ul (0.83-4.51); Lymphocyte % 2.5 % (19-41); Mean Corp Hgb Conc 33.5 g/dL (32-36); Mean Corpuscular Hgb 30.4 pg (27.0-32.0); Mean Corpuscular Volume 90.8 fL (80-94); Mean Platelet Vol. 9.7 fl (6.2-12.0); Monocyte# 0.17 X10^3/uL; Monocyte% 1.7 % (0-10); NRBC Flagged by Analyzer 0 % (0-5); Neutrophil # 9.38 X10^3/uL (2.7-7.7); Neutrophil % 95.2 % (47-70); POSITIVE DIFFERENTIAL YES; Platelet Count 254 K/mm3 (150-450); RBC Distribution Width CV 16.3 % (11.6-14.6); RBC Distribution Width SD 53.3 fl (35.1-43.9); Red Blood Count 3.06 M/mm3 (4.6-6.2); White Blood Count 9.9 K/mm3 (4.4-11.0)
[2023-10-15] MEDS: Metoprolol Tartrate 25 MG Tablet PO (06:01)
[2023-10-15] MEDS: 0.9% Saline Lock 10 ML Syringe IV (06:02)
[2023-10-15 06:10] LABS: Anion Gap 5 (5-15); BUN 18 mg/dL (7-18); BUN/Creat Ratio 26.8 RATIO (10-20); Calcium,Total 8.1 mg/dL (8.5-10.1); Chloride 106 mmol/L (98-107); Creatinine, Serum 0.67 mg/dL (0.70-1.30); EST Glomerular Filtration Rate 121 mL/min (>60); Est Glom Filt Rate - Afr Amer 146 mL/min (>60); Estimated Creatinine Clearance 77.13 ml/min; Glucose 187 mg/dL (74-106); Potassium 4.1 mmol/L (3.5-5.1); Sodium Level 141 mmol/L (136-145)
--- NOTE | 2023-10-15 12:07 | PN.HOSP_ITS ---
Reason for Visit Reason for Visit: Diagnoses Sepsis, unspecified organism (10/05/23) Malignant neoplasm of unspecified part of left bronchus or lung (10/05/23) 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 (10/05/23) Anemia, unspecified (10/05/23) Hyperlipidemia, unspecified (10/05/23) Acidosis, unspecified (10/05/23) Essential (primary) hypertension (10/05/23) Other forms of angina pectoris (10/05/23) Atherosclerotic heart disease of [place] coronary artery without angina pectoris (10/05/23) Atherosclerotic heart disease of [place] coronary artery with other forms of angina pectoris (10/05/23) Other pulmonary embolism without acute cor pulmonale (10/05/23) Ventricular premature depolarization (10/05/23) Chronic obstructive pulmonary disease with (acute) exacerbation (10/05/23) Acute and chronic respiratory failure with hypoxia (10/05/23) Other disorders of lung (10/05/23) Gastrointestinal hemorrhage, unspecified (10/05/23) Hemoptysis (10/05/23) Tachypnea, not elsewhere classified (10/05/23) Other fecal abnormalities (10/05/23) Personal history of other diseases of the circulatory system (10/05/23) Personal history of other specified conditions (10/05/23) Subjective Subjective Very slowly improving, still weak with short of breath and cough but somewhat better today Objective Data Objective Data Vital Signs: Vital Signs Temp Pulse Resp BP Pulse Ox O2 Del Method O2 Flow Rate 97 F L 62 16 129/67 H 95 Nasal Cannula 3.5 10/15/23 04:07 10/15/23 10:18 10/15/23 10:18 10/15/23 04:07 10/15/23 07:10 10/15/23 07:53 10/15/23 07:53 FiO2 21 10/10/23 21:50 Oxygen Flow Rate (L/min) 3.5 Oxygen Delivery Method Nasal Cannula Weight: 80.1 kg Body Mass Index (BMI) 24.6 Intake & Output: Intake and Output for Last 24 Hours 10/13/23 10/14/23 10/15/23 23:59 23:59 23:59 Intake Total 1200 / 1200 650 / 650 Output Total 1650 / 1650 800 / 800 250 / 250 Balance -450 / -450 -150 / -150 -250 / -250 Medical Nutrition Assessment Dietitian: Malnutrition Criteria Met Start: 10/06/23 13:53 Freq: Status: Active Protocol: Document 10/06/23 13:53 SB (Rec: 10/06/23 13:53 SB [id number]) Nutrition Malnutrition Evidence of Malnutrition Exists Yes Malnutrition (severe): Acute Illness/Injury Evidenced By Suboptimal Energy Intake ( Severe),Weight Loss (Severe) Intake Problem Inadequate Oral Intake Etiology related to GI dysfunction Signs/Symptoms as evidence by NPO. Status Active Problem Clinical Problem Acute Disease or Injury Related Malnutrition Etiology severe related to inadequate oral intake and altered GI status Signs/Symptoms as evidence by 2.4% weight loss x 1 week and meeting <50% of estimated energy needs x 1 week. Status Active Problem Recommendation Dietitian Recommendations/Changes Recommend liberalized regular diet, as diet is advanced. Reviewed and approved by Chela John RD, LD Lab / Micro Data 10/15/23 05:16 10/15/23 05:16 Labs: Laboratory Results - last 24 hr 10/15/23 05:16: WBC 9.9, RBC 3.06 L, Hgb 9.3 L, Hct 27.8 L, MCV 90.8, MCH 30.4, MCHC 33.5 D, RDW Std Deviation 53.3 H, RDW Coeff of [place] 16.3 H, Plt Count 254, MPV 9.7, Immature Gran % (Auto) 0.500, Neut % (Auto) 95.2 H, Lymph % (Auto) 2.5 L, [place] % (Auto) 1.7, Eos % (Auto) 0.0, Baso % (Auto) 0.1, Absolute Neuts (auto) 9.4 H, Absolute Lymphs (auto) 0.25 L, Nucleated RBC % 0, Sodium 141, Potassium 4.1, Chloride 106, Carbon Dioxide 30.0, Anion Gap 5, BUN 18, Creatinine 0.67 L, Estim Creat Clear Calc 77.13, Est GFR (MDRD) Af Amer 146, Est GFR (MDRD) Non-Af 121, BUN/Creatinine Ratio 26.8 H, Glucose 187 H, Calcium 8.1 L Micro: Microbiology 10/05/23 19:40 Blood Culture (Wb) - Anticubital Left Blood Culture - Final No growth in 5 days. 08/06/24 05:00 Urine, Clean Catch Urine Culture - Final Culture exhibits no growth. 10/05/23 23:30 Wound - Arm Right Skin and Soft Tissue MRSA/MSSA (PCR - Final 10/05/23 18:25 Stool Stool Occult Blood (YAMINI) - Final Occult Blood Positive Radiography Diagnostic Testing: Radiology Impression Venous Doppler Study 10/14/23 12:25 Interpretation Summary Deep veins of the bilateral lower extremities are patent and compressible segmentally. There is no evidence of bilateral lower extremity deep vein thrombosis. The bilateral great saphenous veins appear patent and compressible segmentally. Ordering Physician: Etta Edmondson Referring Physician: Dillan Cummins Performed By: Renetta Olivas RDCS, RVT Rhythm Strip Rhythm Strip: Sinus Tach Rate: 110 Ectopy: PVC(s) Physical Exam Narrative General: Alert, oriented HEENT: Atraumatic, normocephalic Eyes: Anicteric, normal conjunctiva, extraocular movements grossly intact Neck: Supple Respiratory: Diminished bilaterally, work of breathing is somewhat improved Cardiovascular: Regular rate GI: Soft, nontender, nondistended Extremities: 1+ bilateral lower extremity edema right greater than left Musculoskeletal: Moving all extremities Neuro: No overt focal neurological deficits Skin: No rashes appreciated Psych: Cooperative Assessment & Plan Assessment/Plan (1) Anemia: QUALIFIERS: Anemia type: unspecified type Qualified Code(s): D 64.9 - Anemia, unspecified (2) GI bleed: PLAN: Plan #Increasing shortness of breath secondary to COPD exacerbation and anemia/chronic hypoxic resp failure on 3.5L home O2/known left sided lung cancer -CTA on presentation with chronic changes more pronounced in lower lobes and no PE -Patient initially treated with steroids and nebs -[place] that given patient's hemoglobin of 6.6 that this exacerbated problem -Patient on Atrovent and inhaled budesonide however not routinely receiving any beta-bernard, suspect this may be part of patient's slow recovery-we will change to DuoNebs but monitor heart rate closely as patient had been tachycardic -Additionally patient takes -Continue to follow with outpatient oncology for lung cancer -10/12: Patient very slow to improve, does seem to be doing better with the DuoNebs, was on 10 mg chronically of prednisone at home on top of his inhaled steroids so this was restarted, patient does have lower extremity edema and a bit of a wet cough and seems almost fluid overloaded, echo on the fourth did show his EF was at the lower limits of normal, will give dose of Lasix and assess for improvement. -10/13: Patient started on IV steroids yesterday and IV azithromycin for acute exacerbation of COPD and has begun to improve though still does have increased work of breathing. Suspect that patient will need prednisone taper on discharge to help decrease risk of short-term recurrence. Continue nebs. Additionally also seems to have some continued lower extremity swelling's will give another dose of one-time Lasix -10/14: Continues to improve albeit very slowly, may be able to transition to p.o. steroids tomorrow however today still has increased work of breathing I do not think patient is ready to transition to p.o. yet. Additionally will give another dose of Lasix, encourage ambulation # History of PE -Per patient and his patient had history of PE which is why he was on Eliquis -Symptoms were consistent with COPD exacerbation however he does have right leg slightly more swollen compared to left so we will get duplex -Did discuss with GI and patient okay to resume Eliquis and monitor for any recurrent bleeding -10/14: Resumed Eliquis, monitor CBC, thus far no signs of bleeding, lower extremity duplex negative for DVT #Acute anemia 2/2 GI bleed -Hemoglobin 6.6 and required 3 units packed red blood cells with improvement -On September [address] Enamorado cauterized 2 angiodysplastic lesions in duodenum and several similar lesions in the lower colon -GI evaluated and patient had repeat EGD and colonoscopy 10/06. Endoscopy with no acute findings, colonoscopy with a few ulcers in the rectum and polyps that were resected -Hemoglobin overall fairly stable since transfusions, per GI recs patient will need capsule endoscopy on outpatient basis -10/12: Patient with stable hemoglobin today, continue to monitor CBC and for signs of bleeding -10/13: Hemoglobin stable, discussed with GI and it was recommended to continue to hold aspirin however can retrial Eliquis while patient is still in hospital to assess for any further bleeding -10/14: No overt bleeding since starting Eliquis yesterday, will repeat labs in the morning, continue to hold home aspirin #Hx CAD s/p CABG and episode of chest pain -Evaluated by cardiology while inpatient after patient had chest pain after a contrasted CT scan -Troponins were negative -Beta-bernard increased -Echo performed which was relatively unchanged from previous with EF of 60% -10/12: Not having any chest pain, does appear fluid overloaded and on reviewing echo from 10/03 appears patient's EF is actually lower limit of normal so he is going to receive IV Lasix to see if this helps -10/13: Holding aspirin, restarting Eliquis. Giving another one-time dose of Lasix. Weight had been up and decreased after one-time dose of Lasix but appears to not be back to baseline so suspect patient still has some additional fluid contributing to shortness of breath, another one-time dose of Lasix ordered -10/14: Patient down in weight, will give 1 more dose of IV Lasix today as this seems to be beneficial in patient's renal function stable, weight is closer to baseline Chronic medical problems: #Hx chronic aortic thrombus -Eliquis held due to GI bleed -10/13: Eliquis resumed #Hx anxiety/depression -Continue home medications #Chronic BPH with obstruction -Continue home medications # Esophageal candidiasis -Continue fluconazole DVT prophylaxis: SCDs Time spent in the patient's overall evaluation,decision-making process, review of diagnostic data, adjustment of management, discussion with other providers, nursing nursing and ancillary staff involved in patient's care documentation, 35 minutes Charges/Coding Visit Charges Inpatient E&M: 02317 Subs Hosp L2
[2023-10-15 13:12] LABS: Magnesium 2.4 mg/dL (1.6-2.6)
[2023-10-16] VITALS (11 sets, daily range): BP systolic 114–131; BP diastolic 60–70; PULSE 51–94; RESP 16–20; TEMP 36.3–36.8; O2SAT 94–100; BMI 24.5
[2023-10-16 05:23] LABS: Absolute Lymphocyte Count 0.27 X10^3/uL (0.83-4.51); Basophil# 0.01 X10^3/uL; Basophil% 0.1 % (0-1); Hematocrit 27.6 % (40-54); Hemoglobin 8.3 g/dL (13.0-16.5); Lymphocyte # 0.27 X10^3/ul (0.83-4.51); Lymphocyte % 2.8 % (19-41); Mean Corp Hgb Conc 30.1 g/dL (32-36); Mean Corpuscular Hgb 27.5 pg (27.0-32.0); Mean Corpuscular Volume 91.4 fL (80-94); Mean Platelet Vol. 9.2 fl (6.2-12.0); Monocyte# 0.21 X10^3/uL; Monocyte% 2.2 % (0-10); NRBC Flagged by Analyzer 0 % (0-5); Neutrophil # 8.95 X10^3/uL (2.7-7.7); Neutrophil % 94.4 % (47-70); POSITIVE DIFFERENTIAL YES; Platelet Count 247 K/mm3 (150-450); RBC Distribution Width CV 16.3 % (11.6-14.6); Red Blood Count 3.02 M/mm3 (4.6-6.2); White Blood Count 9.5 K/mm3 (4.4-11.0)
[2023-10-16 05:47] LABS: Anion Gap 3 (5-15); BUN 23 mg/dL (7-18); BUN/Creat Ratio 35.1 RATIO (10-20); Calcium,Total 7.9 mg/dL (8.5-10.1); Chloride 107 mmol/L (98-107); Creatinine, Serum 0.66 mg/dL (0.70-1.30); EST Glomerular Filtration Rate 124 mL/min (>60); Est Glom Filt Rate - Afr Amer 150 mL/min (>60); Estimated Creatinine Clearance 77.13 ml/min; Glucose 145 mg/dL (74-106); Potassium 3.9 mmol/L (3.5-5.1); Sodium Level 142 mmol/L (136-145)
--- NOTE | 2023-10-16 14:18 | PN.HOSP_ITS ---
Reason for Visit Reason for Visit: Diagnoses Sepsis, unspecified organism (10/05/23) Malignant neoplasm of unspecified part of left bronchus or lung (10/05/23) 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 (10/05/23) Anemia, unspecified (10/05/23) Hyperlipidemia, unspecified (10/05/23) Acidosis, unspecified (10/05/23) Essential (primary) hypertension (10/05/23) Other forms of angina pectoris (10/05/23) Atherosclerotic heart disease of [place] coronary artery without angina pectoris (10/05/23) Atherosclerotic heart disease of [place] coronary artery with other forms of angina pectoris (10/05/23) Other pulmonary embolism without acute cor pulmonale (10/05/23) Ventricular premature depolarization (10/05/23) Chronic obstructive pulmonary disease with (acute) exacerbation (10/05/23) Acute and chronic respiratory failure with hypoxia (10/05/23) Other disorders of lung (10/05/23) Gastrointestinal hemorrhage, unspecified (10/05/23) Hemoptysis (10/05/23) Tachypnea, not elsewhere classified (10/05/23) Other fecal abnormalities (10/05/23) Personal history of other diseases of the circulatory system (10/05/23) Personal history of other specified conditions (10/05/23) Subjective Subjective Overnight patient reported to night staff that he felt his breathing was at baseline. Spoke with patient this morning, is certainly feeling better than before, still short of breath but does stay short of breath chronically. Had some reflux-like symptoms the last 2 nights when he took his night meds and laid flat but symptoms resolved without intervention and not presently having the symptoms. Denies any dark stools or bleeding. Still has a lot of mucus that he has been trying to cough up Objective Data Objective Data Vital Signs: Vital Signs Temp Pulse Resp BP Pulse Ox O2 Del Method O2 Flow Rate 97.5 F L 94 20 H 116/60 96 Nasal Cannula 2 10/16/23 09:16 10/16/23 11:27 10/16/23 09:16 10/16/23 09:16 10/16/23 09:16 10/16/23 13:45 10/16/23 13:45 FiO2 21 10/10/23 21:50 Oxygen Flow Rate (L/min) 2 Oxygen Delivery Method Nasal Cannula Weight: 80 kg Body Mass Index (BMI) 24.5 Intake & Output: Intake and Output for Last 24 Hours 10/14/23 10/15/23 10/16/23 23:59 23:59 23:59 Intake Total 650 / 650 785 / 785 240 / 240 Output Total 800 / 800 825 / 825 300 / 300 Balance -150 / -150 -40 / -40 -60 / -60 Medical Nutrition Assessment Dietitian: Malnutrition Criteria Met Start: 10/06/23 13:53 Freq: Status: Active Protocol: Document 10/06/23 13:53 SB (Rec: 10/06/23 13:53 SB [id number]) Nutrition Malnutrition Evidence of Malnutrition Exists Yes Malnutrition (severe): Acute Illness/Injury Evidenced By Suboptimal Energy Intake ( Severe),Weight Loss (Severe) Intake Problem Inadequate Oral Intake Etiology related to GI dysfunction Signs/Symptoms as evidence by NPO. Status Active Problem Clinical Problem Acute Disease or Injury Related Malnutrition Etiology severe related to inadequate oral intake and altered GI status Signs/Symptoms as evidence by 2.4% weight loss x 1 week and meeting <50% of estimated energy needs x 1 week. Status Active Problem Recommendation Dietitian Recommendations/Changes Recommend liberalized regular diet, as diet is advanced. Reviewed and approved by Chela John RD, LD Lab / Micro Data 10/16/23 05:05 10/16/23 05:05 Labs: Laboratory Results - last 24 hr 10/16/23 05:05: WBC 9.5, RBC 3.02 L, Hgb 8.3 L, Hct 27.6 L, MCV 91.4, MCH 27.5, MCHC 30.1 L D, RDW Std Deviation 53.0 H, RDW Coeff of Estelita 16.3 H, Plt Count 247, MPV 9.2, Immature Gran % (Auto) 0.500, Neut % (Auto) 94.4 H, Lymph % (Auto) 2.8 L, [place] % (Auto) 2.2, Eos % (Auto) 0.0, Baso % (Auto) 0.1, Absolute Neuts (auto) 9.0 H, Absolute Lymphs (auto) 0.27 L, Nucleated RBC % 0, Sodium 142, Potassium 3.9, Chloride 107, Carbon Dioxide 32.0, Anion Gap 3 L, BUN 23 H, Creatinine 0.66 L, Estim Creat Clear Calc 77.13, Est GFR (MDRD) Af Amer 150, Est GFR (MDRD) Non- Af 124, BUN/Creatinine Ratio 35.1 H, Glucose 145 H, Calcium 7.9 L Micro: Microbiology 10/16/23 09:05 Sputum, Expectorated/Coughed Gram Stain - Final 10/05/23 19:40 Blood Culture (Wb) - Anticubital Left Blood Culture - Final No growth in 5 days. 10/06/23 05:00 Urine, Clean Catch Urine Culture - Final Culture exhibits no growth. 10/05/23 23:30 Wound - Arm Right Skin and Soft Tissue MRSA/MSSA (PCR - Final 10/05/23 18:25 Stool Stool Occult Blood (YAMINI) - Final Occult Blood Positive Rhythm Strip Rhythm Strip: Sinus Tach Rate: 110 Ectopy: PVC(s) Physical Exam Narrative General: Alert, oriented HEENT: Atraumatic, normocephalic Eyes: Anicteric, normal conjunctiva, extraocular movements grossly intact Neck: Supple Respiratory: No wheezes, diminished at the bases Cardiovascular: Regular rate GI: Soft, nontender, nondistended Extremities: Trace lower extremity edema Musculoskeletal: Moving all extremities Neuro: No overt focal neurological deficits Skin: No rashes appreciated Psych: Cooperative Assessment & Plan Assessment/Plan (1) Anemia: QUALIFIERS: Anemia type: unspecified type Qualified Code(s): D 64.9 - Anemia, unspecified (2) GI bleed: PLAN: Plan #Increasing shortness of breath secondary to COPD exacerbation and anemia/chronic hypoxic resp failure on 3.5L home O2/known left sided lung cancer -CTA on presentation with chronic changes more pronounced in lower lobes and no PE -Patient initially treated with steroids and nebs -[place] that given patient's hemoglobin of 6.6 that this exacerbated problem -Patient on Atrovent and inhaled budesonide however not routinely receiving any beta-bernard, suspect this may be part of patient's slow recovery-we will change to DuoNebs but monitor heart rate closely as patient had been tachycardic -Additionally patient takes -Continue to follow with outpatient oncology for lung cancer -10/12: Patient very slow to improve, does seem to be doing better with the DuoNebs, was on 10 mg chronically of prednisone at home on top of his inhaled steroids so this was restarted, patient does have lower extremity edema and a bit of a wet cough and seems almost fluid overloaded, echo on the fourth did show his EF was at the lower limits of normal, will give dose of Lasix and assess for improvement. -10/13: Patient started on IV steroids yesterday and IV azithromycin for acute exacerbation of COPD and has begun to improve though still does have increased work of breathing. Suspect that patient will need prednisone taper on discharge to help decrease risk of short-term recurrence. Continue nebs. Additionally also seems to have some continued lower extremity swelling's will give another dose of one-time Lasix -10/14: Continues to improve albeit very slowly, may be able to transition to p.o. steroids tomorrow however today still has increased work of breathing I do not think patient is ready to transition to p.o. yet. Additionally will give another dose of Lasix, encourage ambulation -10/15: Patient reported overnight that his breathing is at baseline, overall patient is significantly improved, will start p.o. prednisone taper with a goal of tapering back to his 10 mg of home prednisone daily. Patient does still have some thick sputum, scheduled Mucinex, coughed up specimen and no organisms seen. Patient has been using flutter valve, continue to encourage use # History of PE -Per patient and his patient had history of PE which is why he was on Eliquis -Symptoms were consistent with COPD exacerbation however he does have right leg slightly more swollen compared to left so we will get duplex -Did discuss with GI and patient okay to resume Eliquis and monitor for any recurrent bleeding -10/14: Resumed Eliquis, monitor CBC, thus far no signs of bleeding, lower extremity duplex negative for DVT -10/15: Thus far tolerating Eliquis #Acute anemia 2/2 GI bleed -Hemoglobin 6.6 and required 3 units packed red blood cells with improvement -On September [address] Dr[address] Enamorado cauterized 2 angiodysplastic lesions in duodenum and several similar lesions in the lower colon -GI evaluated and patient had repeat EGD and colonoscopy 10/06. Endoscopy with no acute findings, colonoscopy with a few ulcers in the rectum and polyps that were resected -Hemoglobin overall fairly stable since transfusions, per GI recs patient will need capsule endoscopy on outpatient basis -10/12: Patient with stable hemoglobin today, continue to monitor CBC and for signs of bleeding -10/13: Hemoglobin stable, discussed with GI and it was recommended to continue to hold aspirin however can retrial Eliquis while patient is still in hospital to assess for any further bleeding -10/14: No overt bleeding since starting Eliquis yesterday, will repeat labs in the morning, continue to hold home aspirin -10/15: Hemoglobin down trended today but still may be within the margin of error as patient has not noted any dark stools or any bleeding from anywhere. Will check again tomorrow, if hemoglobin stable will likely be able to go to TCU #Hx CAD s/p CABG -Evaluated by cardiology while inpatient after patient had chest pain after a contrasted CT scan -Troponins were negative -Beta-bernard increased -Echo performed which was relatively unchanged from previous with EF of 60% -10/12: Not having any chest pain, does appear fluid overloaded and on reviewing echo from 10/03 appears patient's EF is actually lower limit of normal so he is going to receive IV Lasix to see if this helps -10/13: Holding aspirin, restarting Eliquis. Giving another one-time dose of Lasix. Weight had been up and decreased after one-time dose of Lasix but appears to not be back to baseline so suspect patient still has some additional fluid contributing to shortness of breath, another one-time dose of Lasix ordered -10/14: Patient down in weight, will give 1 more dose of IV Lasix today as this seems to be beneficial in patient's renal function stable, weight is closer to baseline -10/15: Patient 80 kg, he is down 5.4 kg over the past 4 days, will likely need to track weights on discharge with Lasix as needed versus considering scheduled Lasix if patient requires multiple as needed doses Chronic medical problems: #Hx chronic aortic thrombus -Eliquis held due to GI bleed -10/13: Eliquis resumed #Hx anxiety/depression -Continue home medications #Chronic BPH with obstruction -Continue home medications # Esophageal candidiasis -Continue fluconazole DVT prophylaxis: SCDs Time spent in the patient's overall evaluation,decision-making process, review of diagnostic data, adjustment of management, discussion with other providers, nursing nursing and ancillary staff involved in patient's care documentation, 36 minutes Charges/Coding Visit Charges Inpatient E&M: 89082 Subs Hosp L2
[2023-10-17] VITALS (9 sets, daily range): BP systolic 108–134; BP diastolic 57–68; PULSE 76–86; RESP 18–20; TEMP 36.3–36.7; O2SAT 95–100; BMI 24.3
[2023-10-17 06:53] LABS: Hematocrit 28.6 % (40-54); Hemoglobin 8.5 g/dL (13.0-16.5); Mean Corp Hgb Conc 29.7 g/dL (32-36); Mean Corpuscular Hgb 27.2 pg (27.0-32.0); Mean Corpuscular Volume 91.7 fL (80-94); Mean Platelet Vol. 9.7 fl (6.2-12.0); Platelet Count 246 K/mm3 (150-450); RBC Distribution Width CV 16.1 % (11.6-14.6); RBC Distribution Width SD 53.2 fl (35.1-43.9); Red Blood Count 3.12 M/mm3 (4.6-6.2); White Blood Count 7.7 K/mm3 (4.4-11.0)
[2023-10-17 07:11] LABS: Anion Gap 1 (5-15); BUN 22 mg/dL (7-18); BUN/Creat Ratio 31.4 RATIO (10-20); Calcium,Total 8.2 mg/dL (8.5-10.1); Chloride 108 mmol/L (98-107); EST Glomerular Filtration Rate 115 mL/min (>60); Est Glom Filt Rate - Afr Amer 139 mL/min (>60); Estimated Creatinine Clearance 77.13 ml/min; Glucose 117 mg/dL (74-106); Potassium 3.9 mmol/L (3.5-5.1); Sodium Level 141 mmol/L (136-145)
--- NOTE | 2023-10-17 13:06 | TREXTCAR_ITS ---
Diet Diet Order/Speech Therapy: 10/09/23 13:39 Diet: Cardiac - Heart Healthy Food consistency:: Regular Liquid Consistency:: Regular/Thin Routine Orders/Code Status Suppository Type: Dulcolax 10mg Suppository Frequency: Daily PRN O2 Liters per Minute: 3.5L O2 Frequency: Continuous Keep PO Greater than or Equal to (%): 92 Code Status: DNRCC-A Wound(s) R arm: Wound Type: Abrasion L knee: Wound Type: Abrasion Left forearm: Wound Type: Skin Tear Therapies Physical Therapy: Eval and Treat Occupational Therapy: Eval and Treat Problem/Diagnosis (1) Anemia: Status: Acute Code(s): D64.9 - Anemia, unspecified (2) GI bleed: Status: Acute Code(s): K92.2 - Gastrointestinal hemorrhage, unspecified (3) Acute and chronic respiratory failure with hypoxia: Status: Chronic Code(s): J96.21 - Acute and chronic respiratory failure with hypoxia (4) PVC (premature ventricular contraction): Status: Acute Code(s): I49.3 - Ventricular premature depolarization (5) COPD (chronic obstructive pulmonary disease): Status: Chronic Code(s): J44.9 - Chronic obstructive pulmonary disease, unspecified Comment: inhalers (6) CAD (coronary artery disease): Status: Acute Code(s): I25.10 - Atherosclerotic heart disease of [place] coronary artery without angina pectoris Plan #Increasing shortness of breath secondary to COPD exacerbation and anemia/chronic hypoxic resp failure on 3.5L home O2/known left sided lung cancer # History of PE #Acute anemia 2/2 GI bleed #Hx CAD s/p CABG #Hx chronic aortic thrombus #Hx anxiety/depression #Chronic BPH with obstruction # Esophageal candidiasis- resolved Patient is an 83-year-old male with history of chronic hypoxic respiratory failure on 3.5 L home O2, known left sided lung cancer, COPD, PE, CAD status post CABG, chronic aortic thrombus, anxiety, BPH who presented to [facility] ED 10/05/2023 due to shortness of breath and a fall at home. In the ED he was found to have a white blood cell count of 20 with a hemoglobin of 7.9 and O2 sats in the 80s but recovered with BiPAP and rest. He was admitted to the ICU for acute respiratory failure and placed on IV steroids, nebs, BiPAP, pulm crit consult. In regards to patient's respiratory status he initially improved however when he was switched from IV steroids to just inhaled steroids with no oral or taper he went back into COPD exacerbation, IV steroids and azithromycin were resumed and nebs were continued, patient also had EF on lower limits of normal and was up in weight so was given IV Lasix. This combination ultimately improved his breathing, breathing is suboptimal at baseline on 3.5 L home O2 and patient was close to baseline on day of discharge. Discussed importance of steroid taper to decrease risk of recurrence of exacerbation. Additionally during patient's hospitalization he had a hemoglobin that went down to 6.6 and required 3 units of packed red blood cells total. On September 28 when he was here previously Dr. 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 Given reduced hemoglobin patient had repeat endoscopy with no acute findings and colonoscopy with few ulcers in the rectum suspected to be due to previous radiation as well as polyps that were resected and it was advised he have a capsule endoscopy on outpatient basis. Given stability of hemoglobin anticoagulation regimen was discussed with GI and is recommended that we could retrial Eliquis while patient still in hospital and hold aspirin. Patient had no overt bleeding and hemoglobin stabilized. Given his persistent weakness it was advised he go to SNF on discharge and patient accepted to TCU. On day of discharge patient with some left eye irritation, erythema, purulence so erythromycin ointment ordered, additionally patient overall significantly improved but still had cough and produce sputum sample with preliminary growth so will be discharged on 5 days of Levaquin, final culture with sensitivities pending however given patient's significant improvement do not feel he needs to remain with inpatient hospitalization and is stable to be discharged to TCU in stable condition. Discharge instructions as followed: DISCHARGE INSTRUCTIONS PLEASE READ *Please take this with you to your next doctors appointment* -You will need to hold Aspirin until otherwise advised by your outpatient provider -You will need to follow-up with Dr. Moreno with GI in his office upon discharge. Please call his office to schedule your hospital follow-up appointment (ph. [phone]). You will need a capsule endoscopy on an outpatient basis -You will be discharged on metoprolol for heart rate -Given your positive sputum culture and continued cough you will be discharged on 5 days of Levaquin -You will be discharged on a prednisone taper: -60 mg daily x3 days -50mg daily x3 days -40mg daily x3 days -30mg daily x3 days -20mg daily x3 days -10mg daily x3 days -Please follow-up with your senior java software developer on an outpatient basis -You will be discharged with erythromycin ointment for your left eye and is advised to use 4 times daily for 5 days -Furosemide as needed for weight gain more than 2 pounds in 1 day, if you need to take multiple doses this medication may need to be taken daily, would advise contacting your outpatient provider for further instructions -Weigh yourself every day. A sudden weight gain can mean you are retaining fluid. Weigh yourself at the same time of day and in the same kind of clothes. Ideally, weigh yourself first thing in the morning after you empty your bladder, but before you eat breakfast. -Please call your physician if your weight goes up by more than 2 pounds in 1 day or 5 pounds in 1 week. This can be a sign that you are retaining more fluid than you should be. Clues to weight gain include checking your ankles for swelling, or noticing you are short of breath when you lie down -Please limit your sodium intake to less than 3 g/day. Here are tips: Limit canned, dried, packaged, and fast foods. Don't add salt to your food at the table. Season foods with herbs instead of salt when you cook. When you eat out, ask that the fuel verification technician not add any salt to your dish. Don't eat fried or greasy foods. Be careful of bottled beverages. They can contain a lot of salt -Call 911 right away if you have: -Severe shortness of breath, such that you can't catch your breath even while resting -Severe chest pain that does not resolve with rest or nitroglycerin -[place], foamy mucus with cough and shortness of breath -An ongoing rapid or irregular heartbeat -Passing out or fainting -Stroke symptoms such as sudden numbness or weakness on one side of your face, arm, or leg or sudden confusion, trouble speaking or vision changes -Please call your primary care provider's office upon discharge to schedule a hospital follow up within 1 week. -For any concerning signs or symptoms please call 911 or proceed to the nearest emergency department Allergies/Procedures Done in Hospital Allergies isosorbide (From Imdur) Allergy (Verified 10/05/23 17:24) Other-patient blacks out Procedures: - (EGD, colonoscopy) Type of Care/Length of Stay Estimated LOS: Convalescent Care Less Than 30 days Type of Care Needed: Skilled Rehab Potential: Fair Prognosis: Fair Additional Orders/Day of Discharge Day of Discharge: 10/17/23 Dietary and Speech Recommendations Dietitian Recommendations/Changes: Continue cardiac diet as ordered along with 120ml strawberry ensure plus high protein 4x daily with medpass. Discharge Plan Admission Admit Date/Time: 10/05/23 21:18 Primary Reason for Your Visit: Shortness of breath Attending Provider: Etta Edmondson Primary Care Provider: Dillan Cummins Consulting Providers: Albert Owens; Miguel Lara; Elizabeth Santamaria Instructions Patient Instructions: ED Fall Prevention Additional Instructions / Restrictions: DISCHARGE INSTRUCTIONS PLEASE READ *Please take this with you to your next doctors appointment* -You will need to hold Aspirin until otherwise advised by your outpatient diamante rincon -You will need to follow-up with Dr. Moreno with GI in his office upon discharge. Please call his office to schedule your hospital follow-up appointment (ph. [phone]). You will need a capsule endoscopy on an outpatient basis -You will be discharged on metoprolol for heart rate -Given your positive sputum culture and continued cough you will be discharged on 5 days of Levaquin -You will be discharged on a prednisone taper: -60 mg daily x3 days -50mg daily x3 days -40mg daily x3 days -30mg daily x3 days -20mg daily x3 days -10mg daily x3 days -Please follow-up with your senior java software developer on an outpatient basis -You will be discharged with erythromycin ointment for your left eye and is advised to use 4 times daily for 5 days -Furosemide as needed for weight gain more than 2 pounds in 1 day, if you need to take multiple doses this medication may need to be taken daily, would advise contacting your outpatient provider for further instructions -Weigh yourself every day. A sudden weight gain can mean you are retaining fluid. Weigh yourself at the same time of day and in the same kind of clothes. Ideally, weigh yourself first thing in the morning after you empty your bladder, but before you eat breakfast. -Please call your physician if your weight goes up by more than 2 pounds in 1 day or 5 pounds in 1 week. This can be a sign that you are retaining more fluid than you should be. Clues to weight gain include checking your ankles for swelling, or noticing you are short of breath when you lie down -Please limit your sodium intake to less than 3 g/day. Here are tips: Limit canned, dried, packaged, and fast foods. Don't add salt to your food at the table. Season foods with herbs instead of salt when you cook. When you eat out, ask that the fuel verification technician not add any salt to your dish. Don't eat fried or greasy foods. Be careful of bottled beverages. They can contain a lot of salt -Call 911 right away if you have: -Severe shortness of breath, such that you can't catch your breath even while resting -Severe chest pain that does not resolve with rest or nitroglycerin -[place], foamy mucus with cough and shortness of breath -An ongoing rapid or irregular heartbeat -Passing out or fainting -Stroke symptoms such as sudden numbness or weakness on one side of your face, arm, or leg or sudden confusion, trouble speaking or vision changes -Please call your primary care provider's office upon discharge to schedule a hospital follow up within 1 week. -For any concerning signs or symptoms please call 911 or proceed to the nearest emergency department Discharge Orders/Prescriptions Prescriptions: New erythromycin 5 mg/gram (0.5 %) Ointment 1 applic LEFT EYE 4X/DAY 5 Days Qty: 3.5 0RF metoprolol tartrate 25 mg Tablet 25 mg PO Q6 30 Days Qty: 0 0RF furosemide [Lasix] 20 mg tablet 20 mg PO DAILY PRN (Reason: weight gain) Qty: 30 0RF prednisone 20 mg Tablet See Taper PO BREAKFAST Qty: 32 0RF Taper: Prednisone Taper 60 mg WITH BREAKFAST for 3 Days and 0 Hour 50 mg WITH BREAKFAST for 3 Days and 0 Hour 40 mg WITH BREAKFAST for 3 Days and 0 Hour 30 mg WITH BREAKFAST for 3 Days and 0 Hour 20 mg WITH BREAKFAST for 3 Days and 0 Hour 10 mg WITH BREAKFAST for 3 Days and 0 Hour levofloxacin 750 mg tablet 750 mg PO DAILY 5 Days Qty: 5 0RF Continued fluticasone propion-salmeterol [Advair HFA] 230-21 mcg/actuation HFA aerosol inhaler 2 puff inhalation BID nitroglycerin 0.4 MG tablet 0.4 mg SL Q5M PRN (Reason: Chest Pain) polyethylene glycol 3350 [Miralax] 17 gram Powder In Packet 17 g PO DAILY PRN (Reason: Constipation) acetaminophen [Tylenol] 325 mg Tablet 650 mg PO Q4H PRN (Reason: Pain) atorvastatin 40 mg tablet 40 mg PO QHS duloxetine 30 mg capsule,delayed release(DR/EC) 30 mg PO QPM tamsulosin 0.4 mg capsule 0.4 mg PO QPM Spiriva Respimat 2.5 mcg/actuation mist 2 puff INHALATION DAILY Rx Instructions: USES AROUND NOON ezetimibe 10 mg tablet 10 mg PO DAILY levalbuterol tartrate 45 mcg/actuation HFA aerosol inhaler 2 puff inhalation Q4H PRN PRN (Reason: wheezing) Eliquis 5 mg tablet 5 mg PO Q12H Patient Comments: TAKE 1 TABLET BY MOUTH TWICE A DAY lorazepam [Ativan] 1 mg tablet 0.5 - 1 mg PO TID PRN (Reason: Anxiety) 3 Days Qty: 3 0RF oxycodone 5 mg tablet 5 mg PO Q4H PRN (Reason: PAIN AND BREATHING) 3 Days Qty: 12 0RF Changed guaifenesin [Mucinex] 600 mg tablet extended release 12hr 1,200 mg PO Q12H 7 Days Qty: 0 0RF Discontinued aspirin 81 MG tablet,chewable 81 mg PO QPM Patient Comments: heart, blood thinner amoxicillin-pot clavulanate 875-125 mg tablet 1 tab PO BID Qty: 10 0RF prednisone 20 mg tablet 40 mg PO DAILY Qty: 10 0RF fluconazole 100 mg tablet 100 mg PO DAILY Qty: 14 0RF Referrals / Follow Up: Dillan Cummins MD [Primary Care Provider] - Within 1 Week Garcia Moreno DO [Med Staff - Active Staff] - ( -You will need to follow-up with Dr. Moreno with GI in his office upon discharge. Please call his office to schedule your hospital follow-up appointment (ph. [phone])) Disposition Disposition (needs filled in before D/C Order can be placed): Group Home Facility (1) Anemia Qualifiers: Anemia type: unspecified type Qualified Code(s): D64.9 - Anemia, unspecified (6) CAD (coronary artery disease) Qualifiers: Coronary Disease-Associated Artery/Lesion type: [place] artery [place] vs. transplanted heart: [place] heart Associated angina: with other forms of angina Qualified Code(s): I25.118 - Atherosclerotic heart disease of [place] coronary artery with other forms of angina pectoris
--- NOTE | 2023-10-17 13:13 | DS.PCM_ITS ---
Providers Date of Admission: 10/05/23 Date of Discharge: 10/17/23 Primary Care Physician: Dr. Dillan Cummins MD Consultations 10/05/23 23:20 Consult: Gastroenterology Routine Consulting Provider: [facility] Reason for Consult: Gastrointestinal bleeding, anemia EMERGENT Consult: Yes Notified: Yes Date Notified: 10/05/23 Time Notified: 21:24 Method of Notification: Text 10/06/23 14:05 Consult: Cardiology Routine Consulting Provider: Miguel Lara Reason for Consult: chest pain, abnormal EKG EMERGENT Consult: No Notified: Yes Date Notified: 10/06/23 Time Notified: 14:05 Method of Notification: Verbal 10/13/23 23:20 Consult: Onc/Wound/photo optics technician Routine Comment: Reason for Consult:: Multiple skin tears Reason For Visit: RESPIRATORY FAILURE Diagnosis Discharge Diagnosis (1) Anemia: Status: Acute Code(s): D64.9 - Anemia, unspecified Qualifiers: Anemia type: unspecified type Qualified Code(s): D64.9 - Anemia, unspecified (2) GI bleed: Status: Acute Code(s): K92.2 - Gastrointestinal hemorrhage, unspecified (3) Acute and chronic respiratory failure with hypoxia: Status: Chronic Code(s): J96.21 - Acute and chronic respiratory failure with hypoxia (4) PVC (premature ventricular contraction): Status: Acute Code(s): I49.3 - Ventricular premature depolarization (5) COPD (chronic obstructive pulmonary disease): Status: Chronic Code(s): J44.9 - Chronic obstructive pulmonary disease, unspecified (6) CAD (coronary artery disease): Status: Acute Code(s): I25.10 - Atherosclerotic heart disease of [place] coronary artery without angina pectoris Qualifiers: Coronary Disease-Associated Artery/Lesion type: [place] artery [place] vs. 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 #Hx anxiety/depression #Chronic BPH with obstruction # Esophageal candidiasis- resolved Medications at Discharge Home Medications nitroglycerin 0.4 mg sublingual tablet 0.4 mg sublingual Q5M PRN Chest Pain 12/29/14 polyethylene glycol 3350 17 gram oral powder packet (Miralax) 17 g PO DAILY PRN Constipation 07/09/20 acetaminophen 325 mg tablet (Tylenol) 650 mg PO Q4H PRN Pain 08/13/20 fluticasone propionate 230 mcg-salmeterol 21 mcg/actuation HFA inhaler (Advair HFA) 2 puff inhalation BID breathing 08/07/22 atorvastatin 40 mg tablet 40 mg PO QHS cholesterol 03/25/23 duloxetine 30 mg capsule,delayed release 30 mg PO QPM DEPRESSION 03/25/23 tamsulosin 0.4 mg capsule 0.4 mg PO QPM BLADDER/ PROSTATE 03/25/23 tiotropium bromide 2.5 mcg/actuation mist for inhalation (Spiriva Respimat) 2 puff inhalation DAILY copd 03/25/23 ezetimibe 10 mg tablet 10 mg PO DAILY cholesterol 09/28/23 levalbuterol tartrate 45 mcg/actuation aerosol inhaler 2 puff inhalation Q4H PRN PRN wheezing 09/28/23 apixaban 5 mg tablet (Eliquis) 5 mg PO Q12H 10/05/23 erythromycin 5 mg/gram (0.5 %) eye ointment 1 applic LEFT EYE 4X/DAY 5 days #3.5 grams 10/17/23 furosemide 20 mg tablet (Lasix) 20 mg PO DAILY PRN weight gain #30 tabs 10/17/23 guaifenesin 600 mg tablet, extended release 12 hr (Mucinex) 1,200 mg (2 x 600 mg) PO Q12H cough 7 days #0 tabs 10/17/23 levofloxacin 750 mg tablet 750 mg PO DAILY 5 days #5 tabs 10/17/23 lorazepam 1 mg tablet (Ativan) 0.5 - 1 mg (0.5 - 1 x 1 mg) PO TID PRN Anxiety 3 days #3 tabs 10/17/23 metoprolol tartrate 25 mg tablet 25 mg PO Q6 30 days #0 tabs 10/17/23 oxycodone 5 mg tablet 5 mg PO Q4H PRN PAIN AND BREATHING 3 days #12 tabs 10/17/23 prednisone 20 mg tablet See Taper PO BREAKFAST #32 tabs 10/17/23 Hospital Course Procedures - (Endoscopy, colonoscopy, TTE) Summary of Care Provided Minutes Spent on Discharge: 40 Hospital Course: Patient is an 83-year-old male with history of chronic hypoxic respiratory failure on 3.5 L home O2, known left sided lung cancer, COPD, PE, CAD status post CABG, chronic aortic thrombus, anxiety, BPH who presented to [facility] ED 10/05/2023 due to shortness of breath and a fall at home. In the ED he was found to have a white blood cell count of 20 with a hemoglobin of 7.9 and O2 sats in the 80s but recovered with BiPAP and rest. He was admitted to the ICU for acute respiratory failure and placed on IV steroids, nebs, BiPAP, pulm crit consult. In regards to patient's respiratory status he initially improved however when he was switched from IV steroids to just inhaled steroids with no oral or taper he went back into COPD exacerbation, IV steroids and azithromycin were resumed and nebs were continued, patient also had EF on lower limits of normal and was up in weight so was given IV Lasix. This combination ultimately improved his breathing, breathing is suboptimal at baseline on 3.5 L home O2 and patient was close to baseline on day of discharge. Discussed importance of steroid taper to decrease risk of recurrence of exacerbation. Additionally during patient's hospitalization he had a hemoglobin that went down to 6.6 and required 3 units of packed red blood cells total. On September 28 when he was here previously Dr. 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 Given reduced hemoglobin patient had repeat endoscopy with no acute findings and colonoscopy with few ulcers in the rectum suspected to be due to previous radiation as well as polyps that were resected and it was advised he have a capsule endoscopy on outpatient basis. Given stability of hemoglobin anticoagulation regimen was discussed with GI and is recommended that we could retrial Eliquis while patient still in hospital and hold aspirin. Patient had no overt bleeding and hemoglobin stabilized. Given his persistent weakness it was advised he go to SNF on discharge and patient accepted to TCU. On day of discharge patient with some left eye irritation, erythema, purulence so erythromycin ointment ordered, additionally patient overall significantly improved but still had cough and produce sputum sample with preliminary growth so will be discharged on 5 days of Levaquin, final culture with sensitivities pending however given patient's significant improvement do not feel he needs to remain with inpatient hospitalization and is stable to be discharged to TCU in stable condition. Discharge instructions as followed: DISCHARGE INSTRUCTIONS PLEASE READ *Please take this with you to your next doctors appointment* -You will need to hold Aspirin until otherwise advised by your outpatient provider -You will need to follow-up with Dr. Moreno with GI in his office upon discharge. Please call his office to schedule your hospital follow-up appointment (ph. [phone]). You will need a capsule endoscopy on an outpatient basis -You will be discharged on metoprolol for heart rate -Given your positive sputum culture and continued cough you will be discharged on 5 days of Levaquin -You will be discharged on a prednisone taper: -60 mg daily x3 days -50mg daily x3 days -40mg daily x3 days -30mg daily x3 days -20mg daily x3 days -10mg daily x3 days -Please follow-up with your tree trimmer helper on an outpatient basis -You will be discharged with erythromycin ointment for your left eye and is advised to use 4 times daily for 5 days -Furosemide as needed for weight gain more than 2 pounds in 1 day, if you need to take multiple doses this medication may need to be taken daily, would advise contacting your outpatient provider for further instructions -Weigh yourself every day. A sudden weight gain can mean you are retaining fluid. Weigh yourself at the same time of day and in the same kind of clothes. Ideally, weigh yourself first thing in the morning after you empty your bladder, but before you eat breakfast. -Please call your physician if your weight goes up by more than 2 pounds in 1 day or 5 pounds in 1 week. This can be a sign that you are retaining more fluid than you should be. Clues to weight gain include checking your ankles for swelling, or noticing you are short of breath when you lie down -Please limit your sodium intake to less than 3 g/day. Here are tips: Limit canned, dried, packaged, and fast foods. Don't add salt to your food at the table. Season foods with herbs instead of salt when you cook. When you eat out, ask that the geothermal operating engineer not add any salt to your dish. Don't eat fried or greasy foods. Be careful of bottled beverages. They can contain a lot of salt -Call 911 right away if you have: -Severe shortness of breath, such that you can't catch your breath even while resting -Severe chest pain that does not resolve with rest or nitroglycerin -Big Arm, foamy mucus with cough and shortness of breath -An ongoing rapid or irregular heartbeat -Passing out or fainting -Stroke symptoms such as sudden numbness or weakness on one side of your face, arm, or leg or sudden confusion, trouble speaking or vision changes -Please call your primary care provider's office upon discharge to schedule a hospital follow up within 1 week. -For any concerning signs or symptoms please call 911 or proceed to the nearest emergency department Physical Exam Narrative General: Alert, oriented HEENT: Atraumatic, normocephalic Eyes: Anicteric, left eye with erythema and some purulence, extraocular movements grossly intact Neck: Supple Respiratory: Breathing improving, no respiratory distress Cardiovascular: Regular rate, frequent PVCs GI: Soft, nontender, nondistended Extremities: Trace lower extremity edema Musculoskeletal: Moving all extremities Neuro: No overt focal neurological deficits Skin: No rashes appreciated Psych: Cooperative Medical Records Data Medical Nutrition Assessment Dietitian: Malnutrition Criteria Met Start: 10/06/23 13:53 Freq: Status: Active Protocol: Document 10/06/23 13:53 SB (Rec: 10/06/23 13:53 SB [id number]) Nutrition Malnutrition Evidence of Malnutrition Exists Yes Malnutrition (severe): Acute Illness/Injury Evidenced By Suboptimal Energy Intake ( Severe),Weight Loss (Severe) Intake Problem Inadequate Oral Intake Etiology related to GI dysfunction Signs/Symptoms as evidence by NPO. Status Active Problem Clinical Problem Acute Disease or Injury Related Malnutrition Etiology severe related to inadequate oral intake and altered GI status Signs/Symptoms as evidence by 2.4% weight loss x 1 week and meeting <50% of estimated energy needs x 1 week. Status Active Problem Recommendation Dietitian Recommendations/Changes Recommend liberalized regular diet, as diet is advanced. Reviewed and approved by Chela John RD, LD Weight / BMI Weight Weight: 78.9 kg Body Mass Index (BMI) 24.3 ABG / Lab / Microbiology Data 10/17/23 06:15 10/17/23 06:15 Laboratory: Laboratory Results - last 24 hr 10/17/23 06:15: WBC 7.7, RBC 3.12 L, Hgb 8.5 L, Hct 28.6 L, MCV 91.7, MCH 27.2, MCHC 29.7 L, RDW Std Deviation 53.2 H, RDW Coeff of [place]elita 16.1 H, Plt Count 246, MPV 9.7, Sodium 141, Potassium 3.9, Chloride 108 H, Carbon Dioxide 32.0, Anion Gap 1 L, BUN 22 H, Creatinine 0.70, Estim Creat Clear Calc 77.13, Est GFR (MDRD) Af Amer 139, Est GFR (MDRD) Non-Af 115, BUN/Creatinine Ratio 31.4 H, Glucose 117 H, Calcium 8.2 L Microbiology: Microbiology 10/16/23 09:05 Sputum, Expectorated/Coughed Gram Stain - Final 10/16/23 09:05 Sputum, Expectorated/Coughed Respiratory Culture - Preliminary GNR lactose cargo inspector Staphylococcus species 10/05/23 19:40 Blood Culture (Wb) - Anticubital Left Blood Culture - Final No growth in 5 days. 10/06/23 05:00 Urine, Clean Catch Urine Culture - Final Culture exhibits no growth. 10/05/23 23:30 Wound - Arm Right Skin and Soft Tissue MRSA/MSSA (PCR - Final 10/05/23 18:25 Stool Stool Occult Blood (YAMINI) - Final Occult Blood Positive D/C Instructions Discharge Diet: - (DASH diet) Meaningful Use Info Meaningful Use Meaningful Use Diagnoses (Choose all that apply): None applicable Ischemic Stroke Statin Dosing Therapy Reference: STATIN DOSE THERAPY REFERENCE: * Patients > 75 years receive moderate or high dose statin therapy. * Patients 75 years or YOUNGER should receive HIGH intensity statin dose unless contraindicated. You will be required to document reason for non-treatment if statin daily dose does not meet guidelines. HIGH DOSE STATIN THERAPY DAILY Atorvastatin > than or = to 40 mg Rosuvastatin > than or = to 20 mg Amlodipine + Atorvastatin > than or = to 2.5/40 mg Ezetimibe + Simvastatin 10/80 mg Simvastatin 80mg Discharge Plan Admission Admit Date/Time: 10/05/23 21:18 Primary Reason for Your Visit: Shortness of breath Attending Provider: Etta Edmondson Primary Care Provider: Dillan Cummins Consulting Providers: Albert Owens; Miguel Lara; Elizabeth Santamaria Instructions Patient Instructions: ED Fall Prevention Additional Instructions / Restrictions: DISCHARGE INSTRUCTIONS PLEASE READ *Please take this with you to your next doctors appointment* -You will need to hold Aspirin until otherwise advised by your outpatient provider -You will need to follow-up with Dr. Moreno with GI in his office upon discharge. Please call his office to schedule your hospital follow-up appointment (ph. [phone]). You will need a capsule endoscopy on an outpatient basis -You will be discharged on metoprolol for heart rate -Given your positive sputum culture and continued cough you will be discharged on 5 days of Levaquin -You will be discharged on a prednisone taper: -60 mg daily x3 days -50mg daily x3 days -40mg daily x3 days -30mg daily x3 days -20mg daily x3 days -10mg daily x3 days -Please follow-up with your tree trimmer helper on an outpatient basis -You will be discharged with erythromycin ointment for your left eye and is advised to use 4 times daily for 5 days -Furosemide as needed for weight gain more than 2 pounds in 1 day, if you need to take multiple doses this medication may need to be taken daily, would advise contacting your outpatient provider for further instructions -Weigh yourself every day. A sudden weight gain can mean you are retaining fluid. Weigh yourself at the same time of day and in the same kind of clothes. Ideally, weigh yourself first thing in the morning after you empty your bladder, but before you eat breakfast. -Please call your physician if your weight goes up by more than 2 pounds in 1 day or 5 pounds in 1 week. This can be a sign that you are retaining more fluid than you should be. Clues to weight gain include checking your ankles for swelling, or noticing you are short of breath when you lie down -Please limit your sodium intake to less than 3 g/day. Here are tips: Limit canned, dried, packaged, and fast foods. Don't add salt to your food at the table. Season foods with herbs instead of salt when you cook. When you eat out, ask that the geothermal operating engineer not add any salt to your dish. Don't eat fried or greasy foods. Be careful of bottled beverages. They can contain a lot of salt -Call 911 right away if you have: -Severe shortness of breath, such that you can't catch your breath even while resting -Severe chest pain that does not resolve with rest or nitroglycerin -Big Arm, foamy mucus with cough and shortness of breath -An ongoing rapid or irregular heartbeat -Passing out or fainting -Stroke symptoms such as sudden numbness or weakness on one side of your face, arm, or leg or sudden confusion, trouble speaking or vision changes -Please call your primary care provider's office upon discharge to schedule a hospital follow up within 1 week. -For any concerning signs or symptoms please call 911 or proceed to the nearest emergency department Discharge Orders/Prescriptions Prescriptions: New erythromycin 5 mg/gram (0.5 %) Ointment 1 applic LEFT EYE 4X/DAY 5 Days Qty: 3.5 0RF metoprolol tartrate 25 mg Tablet 25 mg PO Q6 30 Days Qty: 0 0RF furosemide [Lasix] 20 mg tablet 20 mg PO DAILY PRN (Reason: weight gain) Qty: 30 0RF prednisone 20 mg Tablet See Taper PO BREAKFAST Qty: 32 0RF Taper: Prednisone Taper 60 mg WITH BREAKFAST for 3 Days and 0 Hour 50 mg WITH BREAKFAST for 3 Days and 0 Hour 40 mg WITH BREAKFAST for 3 Days and 0 Hour 30 mg WITH BREAKFAST for 3 Days and 0 Hour 20 mg WITH BREAKFAST for 3 Days and 0 Hour 10 mg WITH BREAKFAST for 3 Days and 0 Hour levofloxacin 750 mg tablet 750 mg PO DAILY 5 Days Qty: 5 0RF Continued fluticasone propion-salmeterol [Advair HFA] 230-21 mcg/actuation HFA aerosol inhaler 2 puff inhalation BID nitroglycerin 0.4 MG tablet 0.4 mg SL Q5M PRN (Reason: Chest Pain) polyethylene glycol 3350 [Miralax] 17 gram Powder In Packet 17 g PO DAILY PRN (Reason: Constipation) acetaminophen [Tylenol] 325 mg Tablet 650 mg PO Q4H PRN (Reason: Pain) atorvastatin 40 mg tablet 40 mg PO QHS duloxetine 30 mg capsule,delayed release(DR/EC) 30 mg PO QPM tamsulosin 0.4 mg capsule 0.4 mg PO QPM Spiriva Respimat 2.5 mcg/actuation mist 2 puff INHALATION DAILY Rx Instructions: USES AROUND NOON ezetimibe 10 mg tablet 10 mg PO DAILY levalbuterol tartrate 45 mcg/actuation HFA aerosol inhaler 2 puff inhalation Q4H PRN PRN (Reason: wheezing) Eliquis 5 mg tablet 5 mg PO Q12H Patient Comments: TAKE 1 TABLET BY MOUTH TWICE A DAY lorazepam [Ativan] 1 mg tablet 0.5 - 1 mg PO TID PRN (Reason: Anxiety) 3 Days Qty: 3 0RF oxycodone 5 mg tablet 5 mg PO Q4H PRN (Reason: PAIN AND BREATHING) 3 Days Qty: 12 0RF Changed guaifenesin [Mucinex] 600 mg tablet extended release 12hr 1,200 mg PO Q12H 7 Days Qty: 0 0RF Discontinued aspirin 81 MG tablet,chewable 81 mg PO QPM Patient Comments: heart, blood thinner amoxicillin-pot clavulanate 875-125 mg tablet 1 tab PO BID Qty: 10 0RF prednisone 20 mg tablet 40 mg PO DAILY Qty: 10 0RF fluconazole 100 mg tablet 100 mg PO DAILY Qty: 14 0RF Referrals / Follow Up: Dillan Cummins MD [Primary Care Provider] - Within 1 Week Garcia Moreno DO [Med Staff - Active Staff] - ( -You will need to follow-up with Dr. Moreno with GI in his office upon discharge. Please call his office to schedule your hospital follow-up appointment (ph. [phone])) Disposition Disposition (needs filled in before D/C Order can be placed): Custodial Facility Charges/Coding Visit Charges Inpatient E&M: 86298 Disch Hosp >30min
--- NOTE | 2023-10-17 13:33 | NURSING ---
Report called to nurse Hudson for pt to be d/c to TCU.
== END 2023-10-17 13:50 | disposition skilled nursing facility (03) | DRG 189 ==
LOC: ED 21:47 → ICU 22:00 → PCU 10-10 14:49
PROVIDERS: Family Medicine; Internal Medicine Critical Care Medicine; Internal Medicine Gastroenterology; Student in an Organized Health Care Education/Training Program; Admitting Provider Family Medicine; Emergency Provider Emergency Medicine; PCP Family Medicine; Visit Provider Internal Medicine
PROC: 0DJD8ZZ Inspection of Lower Intestinal Tract, Via Natural or Artificial Opening Endoscopic (ICD-10-PCS; CPT 45378; principal; 2023-10-07 10:55)
DX: J96.21 Acute and chronic respiratory failure with hypoxia (principal); E43 Unspecified severe protein-calorie malnutrition; K27.4 Chronic or unspecified peptic ulcer, site unspecified, with hemorrhage; D68.32 Hemorrhagic disorder due to extrinsic circulating anticoagulants; B37.81 Candidal esophagitis; E87.20 Acidosis, unspecified; D62 Acute posthemorrhagic anemia; C34.92 Malignant neoplasm of unspecified part of left bronchus or lung; J47.0 Bronchiectasis with acute lower respiratory infection; I47.20 Ventricular tachycardia, unspecified; I24.89 Other forms of acute ischemic heart disease; K62.6 Ulcer of anus and rectum; J44.1 Chronic obstructive pulmonary disease with (acute) exacerbation; R04.2 Hemoptysis; N13.8 Other obstructive and reflux uropathy; I10 Essential (primary) hypertension; F32.9 Major depressive disorder, single episode, unspecified; J96.22 Acute and chronic respiratory failure with hypercapnia; E78.5 Hyperlipidemia, unspecified; E87.5 Hyperkalemia; I44.7 Left bundle-branch block, unspecified; K57.30 Diverticulosis of large intestine without perforation or abscess without bleeding; K44.9 Diaphragmatic hernia without obstruction or gangrene; K63.5 Polyp of colon; R19.5 Other fecal abnormalities; F41.9 Anxiety disorder, unspecified; I25.118 Atherosclerotic heart disease of native coronary artery with other forms of angina pectoris; J44.89 Other specified chronic obstructive pulmonary disease; Z79.51 Long term (current) use of inhaled steroids; Z87.891 Personal history of nicotine dependence; Z79.82 Long term (current) use of aspirin; Z66 Do not resuscitate; I49.3 Ventricular premature depolarization; Z86.16 Personal history of COVID-19; Z68.25 Body mass index [BMI] 25.0-25.9, adult; Z86.711 Personal history of pulmonary embolism; Z99.81 Dependence on supplemental oxygen; N40.1 Benign prostatic hyperplasia with lower urinary tract symptoms; Z95.5 Presence of coronary angioplasty implant and graft; R07.9 Chest pain, unspecified
CPT/HCPCS: 36415; 36569; 36600; 70450; 71045; 71275; 74174; 78278; 80048; 80053; 80202; 82274; 82803; 82962; 83605; 83735; 83880; 84100; 84484; 85014; 85018; 85025; 85027; 86850; 86900; 86901; 86920; 86922; 87040; 87070; 87077; 87086; 87186; 87205; 87640; 88305; 93005; 93306; 93970; 94002; 94003; 94640; 94667; 94668; 94762; 97110; 97116; 97162; 97166; 97530; 97535; 97802; 97803; 99285; A9560; J7030; J7050; P9016; Q9957; Q9967; A4216; C8929; J0612; J1940; J2405; J2916

== ENCOUNTER 2023-10-17 14:00 | Inpatient (IN) | payer MEDICARE, BC, SELFPAY ==
[2023-10-17 14:28] VITALS: BP 140/67; PULSE 71; RESP 22; TEMP 36.3; O2SAT 98; BMI 24.3
[2023-10-17 15:04] VITALS: BP 140/67; PULSE 71; RESP 22; TEMP 36.3; O2SAT 98
[2023-10-17 15:15] VITALS: PULSE 71; RESP 22; O2SAT 98
[2023-10-17 15:17] VITALS: O2SAT 98
--- NOTE | 2023-10-17 16:13 | HP.PCM_ITS ---
HPI - General General Date of Admission: 10/17/23 Date of Service: 10/19/23 Chief Complaint: Here for rehabilitation. HPI Narrative 10/05/2023 OSWALDO MENDIOLA, is a 83 Male who presents to [facility] ED with fall. covid 10 days ago, chronic oxygen 2 liters per NC, dark stool. Dyspnea on exertion. Acute respiratory failure requiring BiPAP, Lactate high, rectal bleeding. Vancomycin, Zosyn given. 10/05/2023 Admit [facility] ICU. BiPAP, Solu-medrol iv, Atrovent aerosol for acute respiratory failure with hypoxia. Vancomycin, Zosyn, IV fluids for sepsis. Pantoprazole 40mg iv q12, Dr. Moreno for GI bleed. 10/06/2023 Echo normal lv size. LVSF lower limites of normal. 10/06/2023 Hemoglobin 6.5, Transfuse 2 units PRBC, Hemoglobin post transfusion 8.5. CTA abdomen/pelvis negative for small bowel bleeding. Dr. Moreno recommended EGD/colonoscopy. Vancomycin, Zosyn IV for sepsis. Troponin negative for chest pain. Oxygen 4 liters per NC for acute respiratory failure with hypoxia. 10/07/2023 Hemoglobin 8.1, Transfuse 1 unit PRBC. 10/07/2023 Frail, ill, Lasix given for fluid overload. EGD showed bleeding peptic ulcers. Colonoscopy 2 polyps removed. Stop Eliquis forever. Vancomycin, Zosyn iv, cultures pending, for sepsis. 10/08/2023 Feels better. Pantoprazole iv for bleeding peptic ulcers. WBC 16. 10/09/2023 Hemoglobin 6.6, Transfuse 2 units PRBC. 10/09/2023 Bleeding scan ordered. Completed 5 day course of iv Vancomycin, Zosyn, then stop. 10/10/2023 Requesting BiPAP. Bleeding scan negative, Hemoglobin 9.1. Metoprolol 25mg q6 for tachycardia. 10/11/2023 Unable to cough up sputum. 10/12/2023 Dypsnea on exertion, weak. Oncology for lung cancer. Hemoglobin stable, capsule endoscopy as outpatient. 10/13/2023 SOB, slowly improving, weak, wet cough. Duoneb, steroids for COPD exacerbation. Lasix iv for fluid overload. 10/14/2023 SOB, but improved, cough, bilateral lower extremity swelling. Azithromycin iv, Solu-medrol iv for COPD exacerbation. Lasix iv x1 for bilateral lower extremity swelling. Restart Eliquis, monitor for bleeding, for pulmonary embolism. 10/15/2023 Improving slowly, weak cough, SOB. Transition to po prednisone tomorrow, Lasix iv x 1 for swelling. Doppler ultrasound bilateral lower extremity negative for DVT. No bleeding on Eliquis, off aspirin. Weight closer to baseline after Lasix iv x 2 doses. 10/16/2023 Breathing at baseline. Prednisone taper to 10mg daily home dose. Weight down 5.4 kg with iv Lasix. 10/17/2023 Admit to TCU with debility, here for rehabilitation, strengthening, prior to discharge home with . [facility] Medical History (Updated 10/17/23 @ 16:[address] Josué Hunt MD) Pulmonary embolus COVID Fecal occult blood test positive Abnormal chest CT COPD with acute exacerbation Squamous cell carcinoma of left lung Lung mass Depression Myocardial infarct Coronary artery disease Pulmonary neoplasm Wears glasses Wears dentures Cancer Anxiety Abrasion History of steroid therapy Prostate disease High cholesterol Injury of back Syncope History of weight loss Former smoker COPD (chronic obstructive pulmonary disease) On home oxygen therapy Shortness of breath on exertion Chronic cough History of stress test Cardiology follow-up encounter Chest pain No pertinent family history 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 Nocturnal hypoxemia Chronic hypoxemic respiratory failure Bronchiectasis Prostate CA CAD (coronary artery disease) HLD (hyperlipidemia) Benign essential HTN Home Medications ?Medication ?Instructions ?Recorded ?Last Taken ?Type nitroglycerin 0.4 mg sublingual 0.4 mg sublingual Q5M PRN Chest 12/29/14 1 Week Ago History tablet Pain ~07/02/20 polyethylene glycol 3350 17 gram 17 g PO DAILY PRN Constipation 07/09/20 03/24/23 History oral powder packet (Miralax) acetaminophen 325 mg tablet 650 mg PO Q4H PRN Pain 08/13/20 03/24/23 History (Tylenol) fluticasone propionate 230 2 puff inhalation BID breathing 08/07/22 03/25/23 History mcg-salmeterol 21 mcg/actuation HFA inhaler (Advair HFA) atorvastatin 40 mg tablet 40 mg PO QHS cholesterol 03/25/23 10/04/23 History duloxetine 30 mg capsule,delayed 30 mg PO QPM DEPRESSION 03/25/23 10/04/23 History release tamsulosin 0.4 mg capsule 0.4 mg PO QPM BLADDER/ PROSTATE 03/25/23 10/04/23 History tiotropium bromide 2.5 2 puff inhalation DAILY copd 03/25/23 10/05/23 History mcg/actuation mist for inhalation (Spiriva Respimat) ezetimibe 10 mg tablet 10 mg PO DAILY cholesterol 09/28/23 10/05/23 History levalbuterol tartrate 45 2 puff inhalation Q4H PRN PRN 09/28/23 Unknown History mcg/actuation aerosol inhaler wheezing apixaban 5 mg tablet (Eliquis) 5 mg PO Q12H blood thinner 10/05/23 10/05/23 History erythromycin 5 mg/gram (0.5 %) eye 1 applic LEFT EYE 4X/DAY eye 10/17/23 Unknown Rx ointment ointment 5 days #3.5 grams furosemide 20 mg tablet (Lasix) 20 mg PO DAILY PRN weight gain #30 10/17/23 Unknown Rx tabs guaifenesin 600 mg tablet, 1,200 mg (2 x 600 mg) PO Q12H 10/17/23 10/05/23 Rx extended release 12 hr (Mucinex) cough 7 days #0 tabs levofloxacin 750 mg tablet 750 mg PO DAILY antibiotic 5 days 10/17/23 Unknown Rx #5 tabs lorazepam 1 mg tablet (Ativan) 0.5 - 1 mg (0.5 - 1 x 1 mg) PO TID 10/17/23 Unknown Rx PRN Anxiety 3 days #3 tabs metoprolol tartrate 25 mg tablet 25 mg PO Q6 BP 30 days #0 tabs 10/17/23 Unknown Rx oxycodone 5 mg tablet 5 mg PO Q4H PRN PAIN AND BREATHING 10/17/23 Unknown Rx 3 days #12 tabs prednisone 20 mg tablet See Taper PO BREAKFAST lungs #32 10/17/23 Unknown Rx tabs Allergy/AdvReac Type Severity Reaction Status Date / Time isosorbide (From Imdur) Allergy Other-patient Verified 10/05/23 17:24 blacks out Family History Other No pertinent family history Surgical History Hx of CABG Hx of heart artery stent Hx of transurethral resection of prostate Hx of pneumonectomy Hx of CABG No pertinent past surgical history Social History (Updated 10/17/23 @ 16:[address] Josué Hunt MD) household members: spouse Smoking Status: Former smoker Tobacco: How many years used: 45 Electronic Cigarette Use: not used how long ago did patient quit smokin, second hand exposure: Yes alcohol intake: never substance use type: does not use ROS Constitutional Constitutional: Denies chills, fever(s) or weight gain ENT HEENT: Denies headache(s), nasal congestion or nasal discharge Cardiovascular Cardiovascular: Denies chest pain or palpitations Respiratory/Chest Respiratory/Chest: Denies cough, excessive phlegm production or shortness of breath with exertion Gastrointestinal Gastrointestinal: Denies abdominal pain, nausea or vomiting Genitourinary Genitourinary: Denies dysuria Musculoskeletal Musculoskeletal: Denies joint pain or joint swelling Integumentary Integumentary: Denies rash or wounds Neurologic Neurologic: Denies focal weakness, numbness or tingling Psychiatric Psychiatric: Denies anxiety, auditory hallucinations, depression, homicidal ideation or suicidal ideation Vital Signs Vital Signs Vital Signs: 10/17/23 14:28 10/17/23 15:04 10/17/23 15:15 Temperature 97.4 F L 97.4 F L Temperature Source Temporal Temporal Pulse Rate 71 71 71 Pulse Rhythm Regular Pulse Strength Normal (2+) Respiratory Rate 22 H 22 H 22 H Respiratory Effort Normal Respiratory Depth Normal Respiratory Pattern Normal Blood Pressure 140/67 H 140/67 H Blood Pressure Mean 91 91 Blood Pressure Source Monitor Monitor Blood Pressure Position Sitting Blood Pressure Location Left Arm Pulse Ox 98 98 98 Oxygen Delivery Method Nasal Cannula Nasal Cannula Nasal Cannula Oxygen Flow Rate (L/min) 3 3 3 10/17/23 15:17 Temperature Temperature Source Pulse Rate Pulse Rhythm Pulse Strength Respiratory Rate Respiratory Effort Respiratory Depth Respiratory Pattern Blood Pressure Blood Pressure Mean Blood Pressure Source Blood Pressure Position Blood Pressure Location Pulse Ox 98 Oxygen Delivery Method Nasal Cannula Oxygen Flow Rate (L/min) 3 Weight Weight: 78.925 kg Body Mass Index (BMI) 24.3 Physical Exam Const alert General Appearance: cooperative HEENT normocephalic Eyes PERRL and EOMs intact bilaterally Neck supple, no JVD and no carotid bruits Resp normal respiratory effort, normal air movement and clear to auscultation bilaterally Cardio regular rate and regular rhythm GI normal to inspection, nondistended, normoactive bowel sounds, non-tender and non-distended Extremity normal capillary refill General Extremity: Negative for edema Skin no rashes or lesions noted General Skin Exam: no breakdown Psych affect normal Appearance: appropriate Results Lab / Micro Data 10/18/23 06:19 10/18/23 06:19 Assessment & Plan Assessment/Plan (1) Debility: (2) Acute respiratory failure with hypoxia: (3) Sepsis: (4) Chronic peptic ulcer with bleeding: (5) Acute anemia: (6) Acute heart failure with preserved ejection fraction (HFpEF): (7) COPD exacerbation: (8) Coronary artery disease: (9) Anxiety: (10) HLD (hyperlipidemia): QUALIFIERS: Hyperlipidemia type: unspecified Qualified Code(s): E 78.5 - Hyperlipidemia, unspecified (11) Depression: (12) BPH (benign prostatic hyperplasia): (13) Pulmonary embolus: (14) History of lung cancer: PLAN: Plan 83 year old male with below past medical history hospitalized with acute respiratory failure with hypoxia, sepsis, complicated by bleeding peptic ulcers, acute HFpEF, copd exacerbation, admitted to TCU with debility, here for rehabilitation, strengthening, prior to discharge home with . * Debility - PT/OT. * Dysphagia - ST. * Pain - Tylenol 1000mg q6 prn pain (1-3), Oxycodone 5mg q4 prn pain (4-10). * Bowel - Miralax 17gm daily prn, senna/colace 1 tablet bid, Dulcolax 10mg pr daily prn. * Adult immunization - Administer pneumonia vaccine, covid vaccine, flu vaccine as appropriate. * DVT prophylaxis - on Eliquis. * COPD - Fluticasone/Salmeterol 1 puff bid, Incruse 1 puff daily, Albuterol 2 puffs q4 prn, Prednisone taper. * Pulmonary embolism - Eliquis 5mg q12. * Hyperlipidemia - Atorvastatin 40mg qhs, Zetia 10mg daily. * Depression - Duloxetine 30mg qpm, stable chronic half-way use, GDR not recommended. * Conjunctivitis OS - E-mycin 4x/day OS thru 10/22/2023. * Acute HFpEF - Metoprolol 25mg q6, Furosemide 20mg daily prn. * Congestion - Mucinex 1200mg q12h. * Staph pneumonia - Levaquin 750mg po daily thru 10/22/2023. * Anxiety - Ativan 0.5mg to 1mg tid prn. * Skin irritation - Calmoseptine topical bid. * Coronary artery disease - Metoprolol 25mg q6, NTG 0.4mg sl q5m prn. * Tinea Corporis - Nystatin topical bid. * BPH - Tamsulosin 0.4mg daily.
[2023-10-17 17:09] VITALS: PULSE 69
[2023-10-17] MEDS: Erythromycin Base 1 OPTH.TUBE 1 APPLIC LEFT EYE ×2 (17:09→20:25)
[2023-10-17] MEDS: Metoprolol Tartrate 25 MG Tablet PO (17:09)
[2023-10-17] MEDS: Menthol/Lanolin/Calamine/Znox 113 GM Tube 1 APPLIC TOPICAL ×2 (17:09→20:25)
[2023-10-17] MEDS: Nystatin Powder 15gm Bottle 1 APPLIC TOPICAL ×2 (17:09→20:24)
--- NOTE | 2023-10-17 19:07 | CPS ---
pt has own home vest-does 20 min BID
[2023-10-17] MEDS: guaiFENesin 1,200 MG Tablet 1200 MG PO (20:24)
[2023-10-17] MEDS: Atorvastatin Calcium 40 MG Tablet PO (20:25)
[2023-10-17] MEDS: Tamsulosin HCl 0.4 MG Capsule PO (20:25)
[2023-10-17] MEDS: Fluticasone/Salmeterol 232-14 Inhaler 1 PUFF INHALATION (20:25)
[2023-10-17] MEDS: APIXABAN 5 MG TABLET PO (20:25)
[2023-10-17] MEDS: DULoxetine Hcl 30 MG Capsule PO (20:26)
[2023-10-17] MEDS: LORazepam 1 MG Tablet PO (20:34)
[2023-10-18] VITALS (10 sets, daily range): BP systolic 122–156; BP diastolic 62–75; PULSE 58–71; RESP 16–24; TEMP 36.6; O2SAT 94–98; BMI 24.2
[2023-10-18] MEDS: Metoprolol Tartrate 25 MG Tablet PO ×4 (00:39→17:59)
[2023-10-18] MEDS: Erythromycin Base 1 OPTH.TUBE 1 APPLIC LEFT EYE ×4 (06:11→20:38)
[2023-10-18 06:29] LABS: Absolute Lymphocyte Count 0.42 X10^3/uL (0.83-4.51); Absolute Neutrophil Count 6.3 X10^3/uL (2.0-7.7); Hematocrit 31.2 % (40-54); Hemoglobin 9.4 g/dL (13.0-16.5); Lymphocyte # 0.42 X10^3/ul (0.83-4.51); Lymphocyte % 5.9 % (19-41); Mean Corp Hgb Conc 30.1 g/dL (32-36); Mean Corpuscular Hgb 27.6 pg (27.0-32.0); Mean Corpuscular Volume 91.5 fL (80-94); Mean Platelet Vol. 9.5 fl (6.2-12.0); Monocyte# 0.31 X10^3/uL; Monocyte% 4.4 % (0-10); NRBC Flagged by Analyzer 0.8 % (0-5); Neutrophil # 6.28 X10^3/uL (2.7-7.7); Neutrophil % 88.7 % (47-70); POSITIVE DIFFERENTIAL YES; Platelet Count 233 K/mm3 (150-450); RBC Distribution Width SD 52.6 fl (35.1-43.9); Red Blood Count 3.41 M/mm3 (4.6-6.2); White Blood Count 7.1 K/mm3 (4.4-11.0)
[2023-10-18 07:00] LABS: Anion Gap 5 (5-15); BUN 23 mg/dL (7-18); BUN/Creat Ratio 34.3 RATIO (10-20); Chloride 107 mmol/L (98-107); Creatinine, Serum 0.67 mg/dL (0.70-1.30); EST Glomerular Filtration Rate 121 mL/min (>60); Est Glom Filt Rate - Afr Amer 146 mL/min (>60); Estimated Creatinine Clearance 77.13 ml/min; Glucose 107 mg/dL (74-106); Potassium 3.9 mmol/L (3.5-5.1); Sodium Level 141 mmol/L (136-145)
[2023-10-18] MEDS: Menthol/Lanolin/Calamine/Znox 113 GM Tube 1 APPLIC TOPICAL ×2 (07:47→20:37)
[2023-10-18] MEDS: predniSONE 20 MG Tablet 40 MG PO (07:47)
[2023-10-18] MEDS: Umeclidinium Bromide Inhaler 1 PUFF INHALATION (07:49)
[2023-10-18] MEDS: APIXABAN 5 MG TABLET PO ×2 (07:49→20:38)
[2023-10-18] MEDS: Fluticasone/Salmeterol 232-14 Inhaler 1 PUFF INHALATION ×2 (07:49→20:38)
[2023-10-18] MEDS: Nystatin Powder 15gm Bottle 1 APPLIC TOPICAL ×2 (07:50→20:38)
[2023-10-18] MEDS: guaiFENesin 1,200 MG Tablet 1200 MG PO ×2 (07:50→20:38)
[2023-10-18] MEDS: Senna/Docusate Sodium 1 Tablet PO (07:51)
[2023-10-18] MEDS: Ezetimibe 10 MG Tablet PO (07:51)
[2023-10-18] MEDS: levoFLOXacin 750 MG Tablet PO (10:12)
[2023-10-18] MEDS: Tuberculin,Purif.prot.deriv. 50 TU/ML Vial 0.1 ML ID (10:13)
--- NOTE | 2023-10-18 10:32 | NURSING ---
PER PT, WILL PUT PT VEST ON AND START IT UP EVERY AM AND PM. RN AWARE
[2023-10-18] MEDS: oxyCODONE 5 MG Tablet PO (14:02)
[2023-10-18] MEDS: 0.9 % NaCl (Sterile) Posiflush 10 mL IV (14:13)
[2023-10-18] MEDS: DULoxetine Hcl 30 MG Capsule PO (20:37)
[2023-10-18] MEDS: Tamsulosin HCl 0.4 MG Capsule PO (20:37)
[2023-10-18] MEDS: Atorvastatin Calcium 40 MG Tablet PO (20:38)
[2023-10-19] VITALS (12 sets, daily range): BP systolic 106–147; BP diastolic 54–76; PULSE 61–74; RESP 18–20; TEMP 36.4; O2SAT 97–98; BMI 24.0
[2023-10-19] MEDS: Metoprolol Tartrate 25 MG Tablet PO ×4 (00:46→18:09)
[2023-10-19] MEDS: Erythromycin Base 1 OPTH.TUBE 1 APPLIC LEFT EYE (06:22)
[2023-10-19] MEDS: 0.9 % NaCl (Sterile) Posiflush 10 mL IV (06:30)
--- NOTE | 2023-10-19 10:03 | NURSING ---
Capacitor Repairer Note; Activity Asset: Alvarado Hong is independent in his choice of daily activities. He reads the paper, has a smartphone, visits w/family and friends and welcomes visits from the loader helper sorting yard and therapy dog when available. Staff will remind him of weekly activities, offer him the newspaper and respect his right to say no.
[2023-10-19] MEDS: Umeclidinium Bromide Inhaler 1 PUFF INHALATION (10:07)
[2023-10-19] MEDS: guaiFENesin 1,200 MG Tablet 1200 MG PO ×2 (10:08→22:29)
[2023-10-19] MEDS: levoFLOXacin 750 MG Tablet PO (10:09)
[2023-10-19] MEDS: predniSONE 20 MG Tablet 40 MG PO (10:09)
[2023-10-19] MEDS: Ezetimibe 10 MG Tablet PO (10:09)
[2023-10-19] MEDS: Fluticasone/Salmeterol 232-14 Inhaler 1 PUFF INHALATION ×2 (10:10→22:29)
[2023-10-19] MEDS: APIXABAN 5 MG TABLET PO ×2 (10:10→22:30)
[2023-10-19] MEDS: Menthol/Lanolin/Calamine/Znox 113 GM Tube 1 APPLIC TOPICAL ×2 (10:12→22:36)
[2023-10-19] MEDS: Nystatin Powder 15gm Bottle 1 APPLIC TOPICAL ×2 (10:12→22:36)
--- NOTE | 2023-10-19 11:16 | NURSING ---
Called Dr. Moreno's office about follow-up appt. They will have him schedule appt for after DC from TCU.
--- NOTE | 2023-10-19 12:14 | NURSING ---
Addendum entered by Zena Lynch 10/19/23 13:23: Pt returns from Imaging @1314. Pt reports mild nausea, received PRN Zofran. Addendum entered by Zena Lynch 10/19/23 13:11: Pt ate some ice cream and approximately 25-50% of lunch. Continues to complain of some nausea. Transported pt down to Imaging for XR @1310. present in pt room and aware and in agreement with plan of care at this time. Original Note: Pt complaining of nausea, requesting PRN Zofran from home med list. Called Dr. Hunt, received and read back verbal order for XR of abdomen and Zofran 4mg PRN.
--- NOTE | 2023-10-19 13:00 | RAD_ITS ---
EXAM: XR ABDOMEN, 1 VIEW CLINICAL INDICATION: nausea TECHNIQUE: Frontal supine view of the abdomen/pelvis. COMPARISON: CT abdomen and pelvis, 10/06/2023 FINDINGS: LOWER THORAX: Basilar pulmonary opacities better demonstrated on prior CT. Cavitary lesion and/or empyema in the left lower lobe. GASTROINTESTINAL TRACT: Gaseous distention of the gastric lumen. Nonobstructive bowel gas pattern is otherwise identified. ORGANS: Normal as visualized. No organomegaly. No abnormal calcifications. BONES/JOINTS: Degenerative changes throughout the spine, pelvis, and hips. SOFT TISSUES: No acute pathology. VASCULATURE: Vascular calcifications. RAD/Abdomen Single View IMPRESSION: 1. Gaseous distention of the gastric lumen. 2. Nonobstructive bowel gas pattern is otherwise identified. Electronically Signed: James Booth DO at 0:03 EDT ,
[2023-10-19] MEDS: Ondansetron ODT 4 MG Tablet PO (13:22)
--- NOTE | 2023-10-19 14:46 | PCM.PN.DRR ---
Documented by User: Kaye Bird 10/19/23 15:10 TCU RX Drug Regimen Review Subjective/Objective Subjective/Objective: Subjective: TCU Admission. 83 YOM presented to the ER with a fall. Hospitalized with acute respiratory failure with hypoxia, sepsis, complicated by bleeding peptic ulcers, acute HFpEF, copd exacerbation. Admitted to TCU with debility for strengthening and rehabilitation. Objective: Allergies isosorbide (From Imdur) Allergy (Verified 10/05/23 17:24) Other-patient blacks out Current Medications Generic Name Dose Route Start Last Admin Trade Name Freq PRN Reason Stop Dose Admin Acetaminophen 1,000 mg 10/17/23 16:42 Acetaminophen 500 Mg Tablet PO Q6H PRN PRN Pain Score 1-3 Albuterol Sulfate 2 puff 10/17/23 14:55 Albuterol Ih (6.7 Gm) 1 Puff Inhaler INHALATION Q4H PRN PRN wheezing Apixaban 5 mg 10/17/23 22:00 10/19/23 10:10 Apixaban 5 Mg Tablet PO 5 mg Q12 YAZAN Administration Atorvastatin Calcium 40 mg 10/17/23 22:00 10/18/23 20:38 Atorvastatin Calcium 40 Mg Tablet PO 40 mg QHS YAZAN Administration Bisacodyl 10 mg 10/17/23 14:55 Bisacodyl 10 Mg Suppository RC DAILY PRN Constipation Calamine/Phenol 1 applic 10/17/23 15:25 10/19/23 10:12 Menthol/Lanolin/Calamine/Znox 113 Gm Tube TOPICAL 1 applic BID YAZAN Administration Protocol Duloxetine HCl 30 mg 10/17/23 21:00 10/18/23 20:37 Duloxetine Hcl 30 Mg Capsule PO 30 mg QPM YAZAN Administration Ezetimibe 10 mg 10/18/23 10:00 10/19/23 10:09 Ezetimibe 10 Mg Tablet PO 10 mg DAILY YAZAN Administration Erythromycin 1 applic 10/17/23 17:00 10/19/23 12:25 Erythromycin Base 1 Opth.Tube LEFT EYE 10/22/23 17:01 Not Given 4X/DAY YAZAN Furosemide 20 mg 10/17/23 14:40 Furosemide 20 Mg Tablet PO DAILY PRN weight gain Protocol Guaifenesin 1,200 mg 10/17/23 22:00 10/19/23 10:08 Guaifenesin 1,200 Mg Tablet PO 1,200 mg Q12 YAZAN Administration Levofloxacin 750 mg 10/18/23 10:00 10/19/23 10:09 Levofloxacin 750 Mg Tablet PO 10/22/23 10:01 750 mg DAILY YAZAN Administration Lorazepam 0.5 - 1 mg 10/17/23 14:40 10/17/23 20:34 Lorazepam 1 Mg Tablet PO 10/20/23 14:41 1 mg TID PRN Administration Anxiety Metoprolol Tartrate 25 mg 10/17/23 18:00 10/19/23 12:56 Metoprolol Tartrate 25 Mg Tablet PO 25 mg Q6 YAZAN Administration Protocol Nitroglycerin 0.4 mg 10/17/23 14:40 Nitroglycerin (Inpatient Use) 0.4 Mg Tab.Subl SL Q5M PRN Chest Pain Nystatin 1 applic 10/17/23 15:25 10/19/23 10:12 Nystatin Powder 15gm Bottle TOPICAL 1 applic BID YAZAN Administration Protocol Ondansetron HCl 4 mg 10/19/23 12:12 10/19/23 13:22 Ondansetron Odt 4 Mg Tablet PO 4 mg Q8H PRN PRN Administration NAUSEA/VOMITING Oxycodone HCl 5 mg 10/17/23 16:43 10/18/23 14:02 Oxycodone 5 Mg Tablet PO 5 mg Q4H PRN Administration Pain Score 4-10 or Pre PT/OT Polyethylene Glycol 17 gm 10/17/23 14:40 Polyethylene Glycol 3350 17 Gm Packet PO DAILY PRN Constipation Prednisone 60 mg 10/18/23 08:00 10/19/23 10:09 Prednisone 20 Mg Tablet PO 11/05/23 07:59 60 mg BREAKFAST YAZAN Administration Taper Fluticasone/Salmeterol 1 puff 10/17/23 22:00 10/19/23 10:10 Fluticasone/Salmeterol 232-14 Inhaler INHALATION 1 puff Q12 YAZAN Administration Senna/Docusate Sodium 1 tablet 10/17/23 22:00 10/19/23 10:10 Senna/Docusate Sodium 1 Tablet PO Not Given BID YAZAN Sodium Chloride 10 - 40 ml 10/17/23 14:31 10/19/23 06:30 0.9 % Nacl (Sterile) Posiflush 10 Ml IV 10 ml UD PRN Administration Port access or dressing change Sodium Chloride 10 - 40 ml 10/17/23 14:31 0.9% Saline Lock 10 Ml Syringe IV UD PRN Midline Flush Tamsulosin HCl 0.4 mg 10/17/23 21:00 10/18/23 20:37 Tamsulosin Hcl 0.4 Mg Capsule PO 0.4 mg QPM YAZAN Administration Tuberculin PPD 0.1 ml 10/25/23 10:00 Tuberculin,Purif.Prot.Deriv. 50 Tu/Ml Vial ID 10/25/23 10:01 X1 ONE Umeclidinium [place] 1 puff 10/18/23 10:00 10/19/23 10:07 Umeclidinium [place] Inhaler INHALATION 1 puff DAILY YAZAN Administration Problem List History of lung cancer (Acute) Pulmonary embolus (Acute) BPH (benign prostatic hyperplasia) (Acute) Depression (Acute) Anxiety (Acute) Coronary artery disease (Acute) COPD exacerbation (Chronic) Acute heart failure with preserved ejection fraction (HFpEF) (Acute) Acute anemia (Acute) Chronic peptic ulcer with bleeding (Chronic) Acute respiratory failure with hypoxia (Acute) Debility (Acute) Sepsis (Acute) HLD (hyperlipidemia) (Chronic) Vital Signs Temp Pulse Resp BP Pulse Ox O2 Del Method O2 Flow Rate 97.6 F L 71 20 H 113/57 L 98 Nasal Cannula 4 10/19/23 10:05 10/19/23 12:56 10/19/23 10:05 10/19/23 12:56 10/19/23 11:29 10/19/23 10:05 10/19/23 11:29 Oxygen Flow Rate (L/min) 4 Oxygen Delivery Method Nasal Cannula Weight: 78.67 kg Body Mass Index (BMI) 24.2 Sodium 141 mmol/L (136-145) 10/18/23 06:19 Potassium 3.9 mmol/L (3.5-5.1) 10/18/23 06:19 Chloride 107 mmol/L (98-107) 10/18/23 06:19 Carbon Dioxide 29.0 mmol/L (21.0-32.0) 10/18/23 06:19 Anion Gap 5 (5-15) 10/18/23 06:19 BUN 23 mg/dL (7-18) H 10/18/23 06:19 Creatinine 0.67 mg/dL (0.70-1.30) L 10/18/23 06:19 Est GFR (MDRD) Af Amer 146 mL/min (>60) 10/18/23 06:19 Est GFR (MDRD) Non-Af 121 mL/min (>60) 10/18/23 06:19 BUN/Creatinine Ratio 34.3 RATIO (10-20) H 10/18/23 06:19 Glucose 107 mg/dL (74-106) H 10/18/23 06:19 Assessment/Plan: 1. Pain: acetaminophen 1000mg PO Q6H PRN pain 1-3 and oxycodone 5mg PO Q4H PRN pain 4-10. Resident has had 1 dose of oxycodone dose pain score of 4 in the back. Please continue to monitor for increased pain, PRN usage, constipation and respiratory depression. 2. Bowel: Miralax 17gm PO daily PRN constipation, senna/docusate 1T PO BID and bisacodyl 10mg RC daily PRN constipation. Resident hasn't had any PRN doses. Please continue to monitor for constipation and PRN usage. Last documented bowel movement was 10/17. Resident has refused 3/4 doses of senna/docusate. Please consider changing to PRN. Thanks. 3. Klebsiella pneumonia: levofloxacin 750mg PO daily thru 10/22/23. Please continue to monitor for S/S of infection, tendon pain (black box warning), renal function and diarrhea. 4. HFpEF/CAD: metoprolol tartrate 25mg PO Q6, furosemide 20mg PO daily PRN weight gain (no doses given) and nitroglycerin 0.4mg SL Q5M PRN chest pain. Please continue to monitor HR (last 71), BP (last 113/57), PRN usage, chest pain. 5. Pulmonary embolism: apixaban 5mg PO BID. Please continue to monitor for S/S of bleeding and hemoglobin (last 9.4g/dL). 6. Conjunctivitis: erythromycin ointment 1 application left eye 4x/day thru 10/22/23. Please continue to monitor for S/S of infection and eye irritation. 7. COPD: fluticasone/salmeterol 232/14mcg 1puff BID, Incruse 1puff inhalation daily, prednisone taper thru 11/05/23 and albuterol MDI PRN 2puffs Q4H PRN wheezing. Resident has not had any PRN doses. Please continue to monitor for S/S of wheezing, glucose (last 107mg/dL), WBC, HR (last 71), S/S of thrush and PRN usage. Please rinse mouth with water and spit following fluticasone/salmeterol administration. 8. Hyperlipidemia: atorvastatin 40mg PO QHS and ezetimibe 10mg PO daily. Please consider ordering a lipid panel as there is not panel in the chart. Thanks. Please continue to monitor LFTs (last 10/06/23) and muscle pain. 9. Congestion: guaifenesin 1200mg PO BID. Please continue to monitor for congestion. 10. BPH: tamsulosin 0.4mg PO QPM. Please continue to monitor for S/S of BPH and BP (last 113/57). 11.Skin irritation/Tinea Corporis: Calmoseptine topical bid, Nystatin topical bid. Please continue to monitor. Assessment/Plan for indications treated with psychotropic medications: 1. Depression: duloxetine 30mg PO QPM. Please see physician note regarding GDR. Please continue to monitor for suicidal ideation (black box warning), sodium (last 141mmol/L), renal function, and falls/fractures (BEERs). 2. Anxiety: lorazepam 0.5-1mg PO TID PRN anxiety thru 10/20/23. Resident has had 1 dose. Please continue to monitor for S/S of anxiety, dementia/delirium (BEERs), falls/fractures (BEERs) and PRN usage. Medical chart and medication regimen reviewed. The following medication irregularities or issues were identified: 1. Atorvastatin 40mg PO QHS and ezetimibe 10mg PO daily. Please consider ordering a lipid panel as there is not panel in the chart. Thanks. 2. Senna/docusate 1T PO BID. Resident has refused 3/4 doses of senna/docusate. Please consider changing to PRN. Thanks. Date Date of Note:: 10/19/23 Documented by User: Dr. Josué Hunt MD 10/19/23 15:10 TCU RX Drug Regimen Review Provider Comments Provider responsibility Provider Comments to Recommendations by Pharmacy: Agree
--- NOTE | 2023-10-19 15:48 | CHAPLAIN ---
Type of Pastoral Visit _x__ Initial Visit ___ Follow-up Visit ___ On-call Visit ___ General Patient Visit ___ Spiritual Assessment ___ Family Conference ___ Bereavement ___ Rapid Response ___ Code Blue ___ Other (describe below) Pastoral Care Referral From _x__ Patient _x__ Family ___ Nurse ___ Physician ___ Pipeline Dispatch Operator ___ Boom Stick Man ___ Other (describe below) Sacrament/Intervention _x__ Active listening ___ Anointing ___ Orthodoxy ___ Bereavement ___ Communion _x__ Jaimee exploration ___ _x__ Life review _x__ Prayer ___ Reconciliation ___ Sacrament of Sick _x__ Supportive presence ___ Wedding ___ Other (describe below) Pastoral Comments patient and are in the room; pt has some labored breathing and so it was expressed to patient that he not talk long; some questions directed to the spouse; pt is welcoming and begins to talk about his family and this difficult year; CELINA is in critical need of a heart and in the CC; other family members are ill and a [id number] this year; pt admits to some feelings of overwhelm and the concern for his daughter and grandchildren; 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
[2023-10-19] MEDS: Senna/Docusate Sodium 1 Tablet PO (22:30)
[2023-10-19] MEDS: Tamsulosin HCl 0.4 MG Capsule PO (22:30)
[2023-10-19] MEDS: Atorvastatin Calcium 40 MG Tablet PO (22:31)
[2023-10-19] MEDS: DULoxetine Hcl 30 MG Capsule PO (22:31)
[2023-10-20 00:34] VITALS: BP 142/71; PULSE 66
[2023-10-20] MEDS: Metoprolol Tartrate 25 MG Tablet PO ×4 (00:34→17:48)
[2023-10-20 05:21] VITALS: BP 152/71; PULSE 61
[2023-10-20 05:50] VITALS: BMI 23.8
[2023-10-20 06:52] LABS: Cholesterol 122 mg/dL (200); High Density Lipoprotein 51 mg/dL; Triglycerides 54 mg/dL; Very Low Density Lipoprotein 11 mg/dL (5-40)
[2023-10-20 07:00] VITALS: O2SAT 99
[2023-10-20] MEDS: Fluticasone/Salmeterol 232-14 Inhaler 1 PUFF INHALATION ×2 (08:26→21:15)
[2023-10-20] MEDS: predniSONE 20 MG Tablet 40 MG PO (08:27)
[2023-10-20] MEDS: Umeclidinium Bromide Inhaler 1 PUFF INHALATION (08:27)
[2023-10-20] MEDS: Nystatin Powder 15gm Bottle 1 APPLIC TOPICAL ×2 (08:28→21:15)
[2023-10-20] MEDS: Menthol/Lanolin/Calamine/Znox 113 GM Tube 1 APPLIC TOPICAL ×2 (08:28→21:15)
[2023-10-20] MEDS: APIXABAN 5 MG TABLET PO ×2 (08:28→21:15)
[2023-10-20] MEDS: levoFLOXacin 750 MG Tablet PO (08:30)
[2023-10-20] MEDS: guaiFENesin 1,200 MG Tablet 1200 MG PO ×2 (08:31→21:16)
[2023-10-20] MEDS: Ezetimibe 10 MG Tablet PO (08:32)
[2023-10-20 08:41] VITALS: BP 105/55; PULSE 80; RESP 17; TEMP 36.4; O2SAT 95
[2023-10-20 10:00] VITALS: BMI 24.0
[2023-10-20 13:33] VITALS: PULSE 78
--- NOTE | 2023-10-20 16:19 | CASEMGMT ---
Social Work SW met with patient and to complete initial assessment. Introduced self and role. Verified/updated contacts. SW educated to Medicare benefit and copay coverage. Pt's goal is to return home at [facility] with . SW will continue to follow for DC planning. ANNA ParikhW
[2023-10-20 17:48] VITALS: PULSE 69
[2023-10-20] MEDS: Senna/Docusate Sodium 1 Tablet PO (21:14)
[2023-10-20] MEDS: DULoxetine Hcl 30 MG Capsule PO (21:14)
[2023-10-20] MEDS: Atorvastatin Calcium 40 MG Tablet PO (21:16)
[2023-10-20] MEDS: Tamsulosin HCl 0.4 MG Capsule PO (21:16)
[2023-10-20] MEDS: Erythromycin Base 1 OPTH.TUBE 1 APPLIC LEFT EYE (21:17)
--- NOTE | 2023-10-20 21:30 | NURSING ---
After wound care completed to RFA skin tear, this nurse was unable to pull sleeve down over dressing. Resident refused to have skirt removed and don a gown. He requested this nurse cut part of his sleeve to pull it down over the dressing.
[2023-10-21] VITALS (8 sets, daily range): BP systolic 109–138; BP diastolic 54–71; PULSE 60–94; RESP 16–20; TEMP 36.4; O2SAT 92–98; BMI 23.7
[2023-10-21] MEDS: Metoprolol Tartrate 25 MG Tablet PO ×5 (00:28→23:29)
[2023-10-21] MEDS: Erythromycin Base 1 OPTH.TUBE 1 APPLIC LEFT EYE ×4 (05:51→20:38)
[2023-10-21] MEDS: Umeclidinium Bromide Inhaler 1 PUFF INHALATION (09:07)
[2023-10-21] MEDS: Fluticasone/Salmeterol 232-14 Inhaler 1 PUFF INHALATION ×2 (09:08→20:38)
[2023-10-21] MEDS: predniSONE 20 MG Tablet 40 MG PO (09:08)
[2023-10-21] MEDS: APIXABAN 5 MG TABLET PO ×2 (09:09→20:36)
[2023-10-21] MEDS: levoFLOXacin 750 MG Tablet PO (09:10)
[2023-10-21] MEDS: Senna/Docusate Sodium 1 Tablet PO ×2 (09:10→20:37)
[2023-10-21] MEDS: Ezetimibe 10 MG Tablet PO (09:10)
[2023-10-21] MEDS: Menthol/Lanolin/Calamine/Znox 113 GM Tube 1 APPLIC TOPICAL (09:10)
[2023-10-21] MEDS: guaiFENesin 1,200 MG Tablet 1200 MG PO ×2 (09:10→20:36)
[2023-10-21] MEDS: Nystatin Powder 15gm Bottle 1 APPLIC TOPICAL (09:11)
[2023-10-21] MEDS: 0.9% Saline Lock 10 ML Syringe IV (09:14)
--- NOTE | 2023-10-21 10:38 | CASEMGMT ---
Social Work IDT met with patient and for care plan meeting. Discussed patient's progress in PT/OT/SN. Educated to Medicare benefit. Provided pt/family with written communication on insurance process and copay coverage during stay. Pt's goal is to return home with . has been present for therapy sessions and can assist pt as needed, as long as pt is not a heavy physical assist. Pt would like to DC as soon as possible. SW encouraged pt to remain until medically stable and strength is regained. SW to collaborate with IDT weekly and will follow up with pt/ next week. Both in agreement. SW will continue to follow. Aminata Barahona, ANAN ENGINEERING PRODUCTION WORKER
[2023-10-21] MEDS: Ensure Plus High Protein 120 ML LIQUID PO ×2 (11:32→16:44)
[2023-10-21] MEDS: Atorvastatin Calcium 40 MG Tablet PO (20:36)
[2023-10-21] MEDS: DULoxetine Hcl 30 MG Capsule PO (20:37)
[2023-10-21] MEDS: Tamsulosin HCl 0.4 MG Capsule PO (20:37)
[2023-10-22] VITALS (8 sets, daily range): BP systolic 105–135; BP diastolic 55–64; PULSE 64–96; RESP 30–34; TEMP 36.7; O2SAT 89–100; BMI 23.6
[2023-10-22] MEDS: Erythromycin Base 1 OPTH.TUBE 1 APPLIC LEFT EYE ×3 (05:41→17:40)
[2023-10-22] MEDS: Metoprolol Tartrate 25 MG Tablet PO ×3 (05:42→17:39)
[2023-10-22] MEDS: Ensure Plus High Protein 120 ML LIQUID PO ×2 (05:42→11:40)
[2023-10-22] MEDS: Fluticasone/Salmeterol 232-14 Inhaler 1 PUFF INHALATION ×2 (09:21→20:14)
[2023-10-22] MEDS: Umeclidinium Bromide Inhaler 1 PUFF INHALATION (09:21)
[2023-10-22] MEDS: Menthol/Lanolin/Calamine/Znox 113 GM Tube 1 APPLIC TOPICAL ×2 (09:23→20:13)
[2023-10-22] MEDS: predniSONE 20 MG Tablet 40 MG PO (09:23)
[2023-10-22] MEDS: APIXABAN 5 MG TABLET PO ×2 (09:24→20:10)
[2023-10-22] MEDS: levoFLOXacin 750 MG Tablet PO (09:25)
[2023-10-22] MEDS: guaiFENesin 1,200 MG Tablet 1200 MG PO ×2 (09:25→20:10)
[2023-10-22] MEDS: Senna/Docusate Sodium 1 Tablet PO ×2 (09:25→20:09)
[2023-10-22] MEDS: Ezetimibe 10 MG Tablet PO (09:25)
[2023-10-22] MEDS: Nystatin Powder 15gm Bottle 1 APPLIC TOPICAL ×2 (09:25→20:13)
[2023-10-22] MEDS: 0.9 % NaCl (Sterile) Posiflush 10 mL IV (09:26)
--- NOTE | 2023-10-22 11:23 | NUR.TO.PHY ---
Updated that another patient and a staff member tested covid positive. Family at bedside.
[2023-10-22] MEDS: Tamsulosin HCl 0.4 MG Capsule PO (20:10)
[2023-10-22] MEDS: Atorvastatin Calcium 40 MG Tablet PO (20:10)
[2023-10-22] MEDS: DULoxetine Hcl 30 MG Capsule PO (20:12)
[2023-10-23] VITALS (8 sets, daily range): BP systolic 118–141; BP diastolic 58–76; PULSE 61–74; RESP 18; TEMP 36.8; O2SAT 82–100; BMI 23.5
[2023-10-23] MEDS: Metoprolol Tartrate 25 MG Tablet PO ×4 (00:42→17:17)
[2023-10-23] MEDS: Umeclidinium Bromide Inhaler 1 PUFF INHALATION (08:35)
[2023-10-23] MEDS: guaiFENesin 1,200 MG Tablet 1200 MG PO ×2 (08:35→21:00)
[2023-10-23] MEDS: predniSONE 20 MG Tablet 40 MG PO (08:36)
[2023-10-23] MEDS: Senna/Docusate Sodium 1 Tablet PO ×2 (08:37→21:00)
[2023-10-23] MEDS: Ezetimibe 10 MG Tablet PO (08:37)
[2023-10-23] MEDS: Fluticasone/Salmeterol 232-14 Inhaler 1 PUFF INHALATION ×2 (08:38→21:00)
[2023-10-23] MEDS: APIXABAN 5 MG TABLET PO ×2 (08:39→21:00)
[2023-10-23] MEDS: Menthol/Lanolin/Calamine/Znox 113 GM Tube 1 APPLIC TOPICAL ×2 (08:39→21:09)
[2023-10-23] MEDS: Nystatin Powder 15gm Bottle 1 APPLIC TOPICAL ×2 (08:40→21:09)
--- NOTE | 2023-10-23 09:01 | MDS.RN ---
Pain interview for MDS complete.
--- NOTE | 2023-10-23 09:32 | CASEMGMT ---
Addendum entered by Aminata Barahona 10/23/23 13:40: present in room with pt, requesting to speak with this worker. SW spoke with pt/, pt requesting to DC 10/24 as pt will not receive therapy on that date or day of DC. SW noted pt has increased O2 and will need to ensure delivery and paperwork can be delivered timely as this is going into a weekend. Pt was vocal with his frustration, but this worker offered to follow up with [employer] and report back to pt/. is actively reviewing [facility] list. SW messaged [employer] via [employer], and [employer] can deliver O2 Thursday if script and testing is completed/sent today. SW updated RN to complete testing. Dr signed script. SW was walking down the hallway to pt's room when this worker heard yelling from pt's room. Pt was yelling at this , shut up! and responded, don't talk to me like that, Bill!. Air Filler was finishing mopping the pt's room and reported to this worker, the pt has been yelling at his , and this was not the first time, reporting it was frightening to the templer head. SW entered room, was crying and pt was visibly angry. SW sternly instructed pt not to speak that way to his , as this is not how he should speak to his or anyone, in that manner. Pt responded, oh it's fine. SW refuted that it was not fine, reiterating multiple times to not speak to his that way; pt knows better and that is disrespectful. Pt stated, we've been for 55 years. SW continued to refute that is no reason to speak to his that way, and questioned if pt would like this worker to have a summer law clerk to come tell him the same thing. Pt denied and sunk into his chair, stating, I'm just not feeling well and I'm frustrated. SW acknowledged pt's difficulties and assured pt he is allowed to feel frustrated and angry, but that still does not give pt the right to speak to anyone, especially his , in that manner. Pt responded, well I'm sorry. SW stated this worker did not need an apology; his did. Pt apologized to his . stated that's okay. SW noted to that is not okay to be spoken to that way, and offered for to step out of the room and/or speak with this worker privately. denied, stating she was okay. SW then proceeded to explain [employer] can deliver O2 Thursday, and Dr is on unit and can DC pt for 10/24. Pt expressed appreciation. provided HHC preference of [facility] or [facility]. SW to place referrals. appreciative. SW phoned referral to [facility] PT/OT/SN/SW New plan: DC home with 10/24, [facility] PT/OT/SN/ROBERTO, increased O2 liter flow ANNA Parikh Original Note: Social Work SW met with pt at bedside as he is requesting to DC home 10/25. IDT agreeable. Pt is using 6-7L with exertion of O2 during stay, but was previously using 4L at home. stated pt's home concentrator only goes to 6L. Pt gets his O2 through [employer]. SW to update [employer] for higher concentrator. Pt has no other DME needs. Pt agreeable to skilled HHC. SW provided pt with a list of skilled HHC providers with quality and resource data via [employer] Guide. Pt to review and notify this worker. to transport. SW updated [employer] via [employer]. Plan: DC home with 10/25, HHC PT/OT/SN, increased O2 liter flow ANNA Parikh
--- NOTE | 2023-10-23 09:37 | CASEMGMT ---
Social Work SW conducted BIMS () and PHQ-2 () completed for MDS assessment. Aminata Barahona MSW [employer]
[2023-10-23] MEDS: Ensure Plus High Protein 120 ML LIQUID PO ×3 (11:27→20:58)
--- NOTE | 2023-10-23 13:50 | PCM.DC.SUM ---
Providers Date of Admission: 10/17/23 Primary Care Physician: Dr. Dillan Cummins MD Reason For Visit: RESPIRATORY FAILURE/ FALL Diagnosis Discharge Diagnosis (1) Debility: Status: Acute Code(s): R53.81 - Other malaise (2) Acute respiratory failure with hypoxia: Status: Acute Code(s): J96.01 - Acute respiratory failure with hypoxia (3) Sepsis: Status: Acute Code(s): A41.9 - Sepsis, unspecified organism (4) Chronic peptic ulcer with bleeding: Status: Chronic Code(s): K27.4 - Chronic or unspecified peptic ulcer, site unspecified, with hemorrhage (5) Acute anemia: Status: Acute Code(s): D64.9 - Anemia, unspecified (6) Acute heart failure with preserved ejection fraction (HFpEF): Status: Acute Code(s): I50.31 - Acute diastolic (congestive) heart failure (7) COPD exacerbation: Status: Chronic Code(s): J44.1 - Chronic obstructive pulmonary disease with (acute) exacerbation (8) Coronary artery disease: Status: Acute Code(s): I25.10 - Atherosclerotic heart disease of [place] coronary artery without angina pectoris (9) Anxiety: Status: Acute Code(s): F41.9 - Anxiety disorder, unspecified (10) HLD (hyperlipidemia): Status: Chronic Code(s): E78.5 - Hyperlipidemia, unspecified Qualifiers: Hyperlipidemia type: unspecified Qualified Code(s): E78.5 - Hyperlipidemia, unspecified (11) Depression: Status: Acute Code(s): F32.A - Depression, unspecified (12) BPH (benign prostatic hyperplasia): Status: Acute Code(s): N40.0 - Benign prostatic hyperplasia without lower urinary tract symptoms (13) Pulmonary embolus: Status: Acute Code(s): I26.99 - Other pulmonary embolism without acute cor pulmonale (14) History of lung cancer: Status: Acute Code(s): Z85.118 - Personal history of other malignant neoplasm of bronchus and lung Plan 83 year old male with below past medical history hospitalized with acute respiratory failure with hypoxia, sepsis, complicated by bleeding peptic ulcers, acute HFpEF, copd exacerbation, admitted to TCU with debility, here for rehabilitation, strengthening, prior to discharge home with . Debility - PT/OT. Dysphagia - ST. Pain - Tylenol 1000mg q6 prn pain (1-3), Oxycodone 5mg q4 prn pain (4-10). Bowel - Miralax 17gm daily prn, senna/colace 1 tablet bid, Dulcolax 10mg pr daily prn. Adult immunization - Administer pneumonia vaccine, covid vaccine, flu vaccine as appropriate. DVT prophylaxis - on Eliquis. COPD - Fluticasone/Salmeterol 1 puff bid, Incruse 1 puff daily, Albuterol 2 puffs q4 prn, Prednisone taper. Pulmonary embolism - Eliquis 5mg q12. Hyperlipidemia - Atorvastatin 40mg qhs, Zetia 10mg daily. 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 Conjunctivitis OS - E-mycin 4x/day OS thru 10/22/2023. Acute HFpEF - Metoprolol 25mg q6, Furosemide 20mg daily prn. Congestion - Mucinex 1200mg q12h. Staph pneumonia - Levaquin 750mg po daily thru 10/22/2023. Anxiety - Ativan 0.5mg to 1mg tid prn. Skin irritation - Calmoseptine topical bid. Coronary artery disease - Metoprolol 25mg q6, NTG 0.4mg sl q5m prn. Tinea Corporis - Nystatin topical bid. BPH - Tamsulosin 0.4mg daily. Medications at Discharge Home Medications nitroglycerin 0.4 mg sublingual tablet 0.4 mg sublingual Q5M PRN Chest Pain 12/29/14 fluticasone propionate 230 mcg-salmeterol 21 mcg/actuation HFA inhaler (Advair HFA) 2 puff inhalation BID breathing 08/07/22 atorvastatin 40 mg tablet 40 mg PO QHS cholesterol 03/25/23 duloxetine 30 mg capsule,delayed release 30 mg PO QPM DEPRESSION 03/25/23 tamsulosin 0.4 mg capsule 0.4 mg PO QPM BLADDER/ PROSTATE 03/25/23 tiotropium bromide 2.5 mcg/actuation mist for inhalation (Spiriva Respimat) 2 puff inhalation DAILY copd 03/25/23 ezetimibe 10 mg tablet 10 mg PO DAILY cholesterol 09/28/23 levalbuterol tartrate 45 mcg/actuation aerosol inhaler 2 puff inhalation Q4H PRN PRN wheezing 09/28/23 apixaban 5 mg tablet (Eliquis) 5 mg PO Q12H blood thinner 10/05/23 furosemide 20 mg tablet (Lasix) 20 mg PO DAILY PRN weight gain #30 tabs 10/17/23 guaifenesin 600 mg tablet, extended release 12 hr (Mucinex) 1,200 mg (2 x 600 mg) PO Q12H cough 7 days #0 tabs 10/17/23 metoprolol tartrate 25 mg tablet 25 mg PO Q6 30 days #120 tabs 10/23/23 prednisone 10 mg tablet See Rx Instructions .Route .COMPLEX 9 days #18 tabs 10/23/23 Hospital Course Operations None Procedures None Summary of Care Provided Minutes Spent on Discharge: 35 Hospital Course: 83 year old male with below past medical history hospitalized with acute respiratory failure with hypoxia, sepsis, complicated by bleeding peptic ulcers, acute HFpEF, copd exacerbation, admitted to TCU with debility, here for rehabilitation, strengthening, prior to discharge home with . Discharge home with 10/25/2023, [facility] PT/OT/SN/SW, increased O2 liter flow. Physical Exam Const alert General Appearance: cooperative HEENT normocephalic Eyes PERRL and EOMs intact bilaterally Neck supple, no JVD and no carotid bruits Resp normal respiratory effort, normal air movement and clear to auscultation bilaterally Cardio regular rate and regular rhythm GI normal to inspection, nondistended, normoactive bowel sounds, non-tender and non-distended Extremity normal capillary refill General Extremity: Negative for edema Skin no rashes or lesions noted General Skin Exam: no breakdown Psych affect normal Appearance: appropriate Weight / BMI Weight Weight: 76.459 kg Body Mass Index (BMI) 23.5 ABG / Lab / Microbiology Data 10/18/23 06:19 10/18/23 06:19 Microbiology: Microbiology 10/22/23 Unknown Nasal Secretion SARS-CoV-2 Antigen (Rapid) - Final D/C Instructions Discharge Diet: No restrictions Discharge Activity: Return to Normal Activity, May Shower and Use Walker Weight Bearing Status: Weight bearing as tolerated Call your doctor if you observe: Fever of 101 or Higher, Inability to urinate, Inability to have a bowel movement, Shortness of breath, Dizziness, Fainting spells, Swelling in the ankles, Chest pain and Uncontrolled pain Additional Instructions: Discharge home with 10/25/2023, [facility] PT/OT/SN/SW, increased O2 liter flow. Please Follow Up With: FriendGarcia DO When: 4 weeks. Meaningful Use Info Meaningful Use Meaningful Use Diagnoses (Choose all that apply): None applicable Ischemic Stroke Statin Dosing Therapy Reference: STATIN DOSE THERAPY REFERENCE: * Patients > 75 years receive moderate or high dose statin therapy. * Patients 75 years or YOUNGER should receive HIGH intensity statin dose unless contraindicated. You will be required to document reason for non-treatment if statin daily dose does not meet guidelines. HIGH DOSE STATIN THERAPY DAILY Atorvastatin > than or = to 40 mg Rosuvastatin > than or = to 20 mg Amlodipine + Atorvastatin > than or = to 2.5/40 mg Ezetimibe + Simvastatin 10/80 mg Simvastatin 80mg Discharge Plan Admission Admit Date/Time: 10/17/23 14:00 Primary Reason for Your Visit: Debility. Attending Provider: Josué Hunt Chi Primary Care Provider: Dillan Cummins Instructions Additional Instructions / Restrictions: Discharge home with 10/25/2023, [facility] PT/OT/SN/SW, increased O2 liter flow. Discharge Orders/Prescriptions Prescriptions: New metoprolol tartrate 25 mg Tablet 25 mg PO Q6 30 Days Qty: 120 0RF prednisone 10 mg tablet See Rx Instructions .ROUTE .COMPLEX 9 Days Qty: 18 0RF Rx Instructions: 10 mg orally ;3 tablets daily x 3 days, 2 tablets daily x 3 days, 1 tablet daily x 3 days, then stop. Continued fluticasone propion-salmeterol [Advair HFA] 230-21 mcg/actuation HFA aerosol inhaler 2 puff inhalation BID nitroglycerin 0.4 MG tablet 0.4 mg SL Q5M PRN (Reason: Chest Pain) atorvastatin 40 mg tablet 40 mg PO QHS duloxetine 30 mg capsule,delayed release(DR/EC) 30 mg PO QPM tamsulosin 0.4 mg capsule 0.4 mg PO QPM Spiriva Respimat 2.5 mcg/actuation mist 2 puff INHALATION DAILY Rx Instructions: USES AROUND NOON ezetimibe 10 mg tablet 10 mg PO DAILY levalbuterol tartrate 45 mcg/actuation HFA aerosol inhaler 2 puff inhalation Q4H PRN PRN (Reason: wheezing) Eliquis 5 mg tablet 5 mg PO Q12H Patient Comments: TAKE 1 TABLET BY MOUTH TWICE A DAY guaifenesin [Mucinex] 600 mg tablet extended release 12hr 1,200 mg PO Q12H 7 Days Qty: 0 0RF furosemide [Lasix] 20 mg tablet 20 mg PO DAILY PRN (Reason: weight gain) Qty: 30 0RF Discontinued polyethylene glycol 3350 [Miralax] 17 gram Powder In Packet 17 g PO DAILY PRN (Reason: Constipation) acetaminophen [Tylenol] 325 mg Tablet 650 mg PO Q4H PRN (Reason: Pain) erythromycin 5 mg/gram (0.5 %) Ointment 1 applic LEFT EYE 4X/DAY 5 Days Qty: 3.5 0RF metoprolol tartrate 25 mg Tablet 25 mg PO Q6 30 Days Qty: 0 0RF prednisone 20 mg Tablet See Taper PO BREAKFAST Qty: 32 0RF Taper: Prednisone Taper 60 mg WITH BREAKFAST for 3 Days and 0 Hour 50 mg WITH BREAKFAST for 3 Days and 0 Hour 40 mg WITH BREAKFAST for 3 Days and 0 Hour 30 mg WITH BREAKFAST for 3 Days and 0 Hour 20 mg WITH BREAKFAST for 3 Days and 0 Hour 10 mg WITH BREAKFAST for 3 Days and 0 Hour levofloxacin 750 mg tablet 750 mg PO DAILY 5 Days Qty: 5 0RF lorazepam [Ativan] 1 mg tablet 0.5 - 1 mg PO TID PRN (Reason: Anxiety) 3 Days Qty: 3 0RF oxycodone 5 mg tablet 5 mg PO Q4H PRN (Reason: PAIN AND BREATHING) 3 Days Qty: 12 0RF Referrals / Follow Up: Dillan Cummins MD [Primary Care Provider] - Disposition Disposition (needs filled in before D/C Order can be placed): Home Health Service
--- NOTE | 2023-10-23 16:09 | CASEMGMT ---
Social Work Sent updated oxygen testing and prescription for higher liter flow of 6-7 while ambulating via [facility] to [facility]. Spoke with Alyson at [facility] via phone to confirm new concentrator can be delivered this weekend. Patient will need to call on Thursday when, discharging so [facility] can deliver updated equipment. New concentrator to be delivered will reach up to 10L. Spoke with Heather Wang RN on TCU that information has been sent, as well as need for call to [facility] on Thursday. Plan: Refer to prior social work documentation for further details of discharge planning. Home [facility] O2 with [facility] (patient or to call [facility] on 10.25.23 for delivery of new home concentrator) -ALISA Meraz
[2023-10-23] MEDS: Acetaminophen 500 MG Tablet 1000 MG PO (17:28)
[2023-10-23] MEDS: DULoxetine Hcl 30 MG Capsule PO (21:00)
[2023-10-23] MEDS: Atorvastatin Calcium 40 MG Tablet PO (21:00)
[2023-10-23] MEDS: Tamsulosin HCl 0.4 MG Capsule PO (21:00)
[2023-10-24 00:38] VITALS: BP 125/70; PULSE 74
[2023-10-24] MEDS: Metoprolol Tartrate 25 MG Tablet PO ×4 (00:38→18:00)
[2023-10-24 05:45] VITALS: BMI 23.3
[2023-10-24 06:05] VITALS: BP 133/68; PULSE 64
[2023-10-24] MEDS: Ensure Plus High Protein 120 ML LIQUID PO ×3 (06:05→22:24)
[2023-10-24 06:33] VITALS: O2SAT 100
[2023-10-24] MEDS: Umeclidinium Bromide Inhaler 1 PUFF INHALATION (10:38)
[2023-10-24] MEDS: Senna/Docusate Sodium 1 Tablet PO ×2 (10:38→22:21)
[2023-10-24] MEDS: guaiFENesin 1,200 MG Tablet 1200 MG PO ×2 (10:38→22:21)
[2023-10-24] MEDS: predniSONE 20 MG Tablet 40 MG PO (10:38)
[2023-10-24] MEDS: Ezetimibe 10 MG Tablet PO (10:38)
[2023-10-24] MEDS: Fluticasone/Salmeterol 232-14 Inhaler 1 PUFF INHALATION ×2 (10:39→22:20)
[2023-10-24] MEDS: APIXABAN 5 MG TABLET PO ×2 (10:39→22:20)
[2023-10-24] MEDS: oxyCODONE 5 MG Tablet PO (10:41)
[2023-10-24] MEDS: Nystatin Powder 15gm Bottle 1 APPLIC TOPICAL ×2 (10:43→22:23)
[2023-10-24] MEDS: Menthol/Lanolin/Calamine/Znox 113 GM Tube 1 APPLIC TOPICAL ×2 (10:43→22:23)
[2023-10-24 11:56] VITALS: BP 125/62; PULSE 70
[2023-10-24 15:44] VITALS: BP 127/63; PULSE 71; RESP 20; TEMP 36.4; O2SAT 99
[2023-10-24 18:00] VITALS: BP 116/73; PULSE 74
--- NOTE | 2023-10-24 18:03 | NURSING ---
Upon evaluation patient's family member turned pt's O2 to 5L/min. Pt was stating 99%, this nurse lowered O2 to 4L/min and patient stated, I was moving, I need 5L to move this nurse educated patient that he is to be on 4L when moving and 3L at rest and that they are not to be changing O2 without a nurse. Pt's O2 sat at 97% on 4L. As soon as this nurse left the room, patient's family member changed O2 to 5L/min. noted to be transferring patient herself in the room. No clear indication that is approved to transfer pt.
[2023-10-24] MEDS: DULoxetine Hcl 30 MG Capsule PO (22:19)
[2023-10-24] MEDS: Tamsulosin HCl 0.4 MG Capsule PO (22:20)
[2023-10-24] MEDS: Atorvastatin Calcium 40 MG Tablet PO (22:21)
[2023-10-24] MEDS: 0.9% Saline Lock 10 ML Syringe IV (22:28)
[2023-10-25 00:55] VITALS: BP 125/66; PULSE 72
[2023-10-25] MEDS: Metoprolol Tartrate 25 MG Tablet PO ×2 (00:55→06:17)
[2023-10-25 05:10] VITALS: BMI 23.3
[2023-10-25 05:47] VITALS: BMI 23.6
[2023-10-25 06:17] VITALS: BP 128/71; PULSE 79
[2023-10-25] MEDS: Ensure Plus High Protein 120 ML LIQUID PO (06:21)
[2023-10-25 06:35] VITALS: O2SAT 100
[2023-10-25] MEDS: predniSONE 20 MG Tablet 40 MG PO (07:53)
[2023-10-25] MEDS: APIXABAN 5 MG TABLET PO (10:23)
[2023-10-25] MEDS: Umeclidinium Bromide Inhaler 1 PUFF INHALATION (10:23)
[2023-10-25] MEDS: Fluticasone/Salmeterol 232-14 Inhaler 1 PUFF INHALATION (10:23)
[2023-10-25] MEDS: guaiFENesin 1,200 MG Tablet 1200 MG PO (10:24)
[2023-10-25] MEDS: Ezetimibe 10 MG Tablet PO (10:24)
--- NOTE | 2023-10-30 09:03 | MDS.RN ---
Information for the MDS was obtained from review of the clinical record, interview of resident, staff, and direct observation of resident?s care.
== END 2023-10-25 11:25 | disposition home health service (06) | DRG 177 ==
PROVIDERS: Admitting Provider Family Medicine Geriatric Medicine; PCP Family Medicine; Visit Provider Family Medicine Geriatric Medicine
DX: J15.20 Pneumonia due to staphylococcus, unspecified (principal); I26.99 Other pulmonary embolism without acute cor pulmonale; J96.21 Acute and chronic respiratory failure with hypoxia; I50.33 Acute on chronic diastolic (congestive) heart failure; K27.4 Chronic or unspecified peptic ulcer, site unspecified, with hemorrhage; J44.1 Chronic obstructive pulmonary disease with (acute) exacerbation; J44.0 Chronic obstructive pulmonary disease with (acute) lower respiratory infection; D64.9 Anemia, unspecified; B35.4 Tinea corporis; I11.0 Hypertensive heart disease with heart failure; F32.A Depression, unspecified; E78.00 Pure hypercholesterolemia, unspecified; I25.10 Atherosclerotic heart disease of native coronary artery without angina pectoris; F41.9 Anxiety disorder, unspecified; H10.9 Unspecified conjunctivitis; Z79.51 Long term (current) use of inhaled steroids; Z86.16 Personal history of COVID-19; N40.0 Benign prostatic hyperplasia without lower urinary tract symptoms; Z87.891 Personal history of nicotine dependence; Z79.01 Long term (current) use of anticoagulants; Z79.899 Other long term (current) drug therapy
CPT/HCPCS: 36415; 74018; 80048; 80061; 85025; 87426; 92610; 97110; 97116; 97162; 97166; 97530; 97535; 97802; A4216

== ENCOUNTER → 2023-11-11 | Outpatient (CLI) | payer MEDICARE, BC, SELFPAY ==
[2023-11-11 15:20] LABS: Absolute Lymphocyte Count 0.34 X10^3/uL (0.83-4.51); Absolute Neutrophil Count 12.1 X10^3/uL (2.0-7.7); Basophil# 0.03 X10^3/uL; Basophil% 0.2 % (0-1); Eosinophil# 0.01 X10^3/uL; Eosinophils% 0.1 % (0-5); Hematocrit 35.7 % (40-54); Hemoglobin 10.4 g/dL (13.0-16.5); Lymphocyte # 0.34 X10^3/ul (0.83-4.51); Lymphocyte % 2.6 % (19-41); Mean Corp Hgb Conc 29.1 g/dL (32-36); Mean Corpuscular Hgb 26.7 pg (27.0-32.0); Mean Corpuscular Volume 91.8 fL (80-94); Mean Platelet Vol. 8.6 fl (6.2-12.0); Monocyte# 0.39 X10^3/uL; NRBC Flagged by Analyzer 0.2 % (0-5); Neutrophil # 12.14 X10^3/uL (2.7-7.7); POSITIVE DIFFERENTIAL YES; Platelet Count 270 K/mm3 (150-450); RBC Distribution Width CV 15.8 % (11.6-14.6); RBC Distribution Width SD 53.2 fl (35.1-43.9); Red Blood Count 3.89 M/mm3 (4.6-6.2); White Blood Count 13.1 K/mm3 (4.4-11.0)
[2023-11-11 15:45] LABS: Iron 29 ug/dL (65-175); Iron Binding Capacity,Total 234 ug/dL (250-450); PERCENT IRON SATURATION 12.4 % (15.0-55.0)
== END | disposition home or self-care (01) ==
LOC: LAB 14:38
PROVIDERS: PCP Family Medicine; Referring Provider Student in an Organized Health Care Education/Training Program; Visit Provider Student in an Organized Health Care Education/Training Program
DX: D64.9 Anemia, unspecified (principal)
CPT/HCPCS: 36415; 83540; 83550; 85025

== ENCOUNTER 2024-01-07 11:44 | Emergency (ER) | payer MEDICARE, BC, SELFPAY ==
[2024-01-07 11:44] VITALS: BP 109/51; PULSE 87; RESP 14; TEMP 36.8; O2SAT 97; BMI 24.4
[2024-01-07 13:44] VITALS: BP 112/86; PULSE 96; RESP 22; O2SAT 98
[2024-01-07 13:54] VITALS: BP 112/86; PULSE 96; RESP 22; TEMP 36.7; O2SAT 98
== END 2024-01-07 13:56 | disposition home or self-care (01) ==
PROVIDERS: Emergency Provider Emergency Medicine; PCP Family Medicine; Referring Provider Emergency Medicine; Visit Provider Emergency Medicine
DX: S06.2XAA Diffuse traumatic brain injury with loss of consciousness status unknown, initial encounter (principal); I11.0 Hypertensive heart disease with heart failure; I50.9 Heart failure, unspecified; J44.9 Chronic obstructive pulmonary disease, unspecified; I25.10 Atherosclerotic heart disease of native coronary artery without angina pectoris; E78.00 Pure hypercholesterolemia, unspecified; Z87.891 Personal history of nicotine dependence; W19.XXXA Unspecified fall, initial encounter; I25.2 Old myocardial infarction; Z85.828 Personal history of other malignant neoplasm of skin; Z99.81 Dependence on supplemental oxygen; F32.A Depression, unspecified; Z79.899 Other long term (current) drug therapy; Z85.46 Personal history of malignant neoplasm of prostate; Z79.51 Long term (current) use of inhaled steroids; Z95.1 Presence of aortocoronary bypass graft
CPT/HCPCS: 70450; 72125; 99282

== ENCOUNTER 2024-02-19 14:13 | Inpatient (IN) | payer MEDICARE, BC, SELFPAY ==
[2024-02-19] VITALS (16 sets, daily range): BP systolic 115–153; BP diastolic 62–92; PULSE 86–110; RESP 19–40; TEMP 36.4–36.9; O2SAT 95–100; BMI 23.6; BMI 23.0
--- NOTE | 2024-02-19 14:28 | EKG12_ITS ---
Test Reason : SOB Blood Pressure : */* mmHG Vent. Rate : 86 BPM Atrial Rate : 86 BPM P-R Int : 142 ms QRS Dur : 86 ms QT Int : 312 ms P-R-T Axes : 51 20 -38 degrees QTcB Int : 373 ms Normal sinus rhythm Nonspecific T wave abnormality Abnormal ECG Confirmed by NITHYA SOTO, SHANTA ([id number]), editor publications GRACE BAÑUELOS ([id number]) on 02/22/2024 6:37:01 AM Referred By: Sushila Rivers Confirmed By: SHANTA BARRIGA MD
[2024-02-19] MEDS: Albuterol 2.5 MG/3 ML VIAL.NEB. INHALATION (14:38)
[2024-02-19] MEDS: Ipratropium/Albuterol Sulfate 3 ML AMPUL.NEB INHALATION ×3 (14:38→23:53)
[2024-02-19 14:52] LABS: Absolute Lymphocyte Count 0.43 X10^3/uL (0.83-4.51); Basophil# 0.02 X10^3/uL; Basophil% 0.2 % (0-1); Eosinophil# 0.02 X10^3/uL; Eosinophils% 0.2 % (0-5); Hematocrit 38.6 % (40-54); Hemoglobin 11.4 g/dL (13.0-16.5); Lymphocyte # 0.43 X10^3/ul (0.83-4.51); Lymphocyte % 3.6 % (19-41); Mean Corp Hgb Conc 29.5 g/dL (32-36); Mean Corpuscular Hgb 26.2 pg (27.0-32.0); Mean Corpuscular Volume 88.7 fL (80-94); Mean Platelet Vol. 8.8 fl (6.2-12.0); Monocyte# 0.29 X10^3/uL; Monocyte% 2.4 % (0-10); NRBC Flagged by Analyzer 0.2 % (0-5); Neutrophil % 92.3 % (47-70); POSITIVE DIFFERENTIAL YES; Platelet Count 408 K/mm3 (150-450); RBC Distribution Width CV 15.9 % (11.6-14.6); RBC Distribution Width SD 51.8 fl (35.1-43.9); Red Blood Count 4.35 M/mm3 (4.6-6.2); White Blood Count 11.9 K/mm3 (4.4-11.0)
--- NOTE | 2024-02-19 15:02 | RAD_ITS ---
STUDY: X-RAY CHEST REASON FOR EXAM: Male, 83 years old. Sob TECHNIQUE: AP and lateral views of the chest. COMPARISON: Comparison is made with prior study October 13, 2023. FINDINGS: EKG electrodes are seen. Stable bilateral increased markings with areas of confluence worsened in the right hemithorax with chronic interstitial fibrosis. Stable blunting of the right costophrenic angle. Sternal cerclage wires and vascular clips are present from a prior sternotomy and coronary artery bypass graft procedure (CABG). Normal mediastinum and pepito. Normal visualized pulmonary arteries. There is atherosclerotic calcification of the aortic arch with tortuosity. Normal visualized thoracic spine. Normal visualized ribs, clavicles, and shoulders. There is no demonstrated abnormality of the visualized soft tissue structures of the upper abdomen. RAD/Chest PA and Lateral IMPRESSION: Diffuse bilateral scarring worse in the right hemithorax. No acute abnormality is seen. Electronically Signed: Fernando Sidhu MD at 15:47 EST ,
[2024-02-19] MEDS: MethylPREDNISolone 125 MG/2 ML Vial IV (15:08)
--- NOTE | 2024-02-19 15:23 | EDS_ITS ---
<Statement entered by Tristan Salter DO - 02/20/24 07:12> Patient was seen and examined with physician creative assistant Kelly All components of the history and physical confirmed and agreed. History of present illness and physical exam: Patient is a 83-year-old male with a past medical history of chronic hypoxic respiratory failure on 5 L nasal cannula, PE on Eliquis, anxiety CAD, hyperlipidemia, hypertension, COPD who presented to the [facility] part with chief complaint of shortness of breath over the last 2 to 3 days. Patient states that he has been wearing his oxygen at home however noted that given that he has been feeling short of breath he came here for further evaluation management. On portable tank at the emergency department the patient was noted to be around 80%. Patient states that he has had a productive cough for the last few days and noted that it is green-colored sputum in nature. States that he has been using his medications as prescribed and not missing doses. Review of systems: Agree with above Physical exam: Agree with above MDM Patient is a 83-year-old male who presented to the [facility] part with chief complaint of shortness on breath over the past few days with increased sputum production. He is chronically on 5 L however on 5 L on portable tank he was 80%. He was initially placed on nonrebreather at 15 L and his oxygen level imp roved to 100% and was able to be titrated down to 5 L which was his baseline. Patient will have a workup performed here on the differential diagnose includes Melamin to pneumothorax, CHF, ACS, pneumonia, upper respiratory infection secondary viral etiology. Patient CBC reviewed and was significant for leukocytosis of 11,000, hemoglobin is 11.4, platelet count was noted be 408. Patient sodium was noted to be normal at 137, potassium normal at 4.9, creatinine normal at 0.73. Patient's troponin was 51. Patient's EKG was reviewed and independently interpreted by myself showed sinus rhythm with a rate of 86 bpm. Patient's chest x-ray reviewed by myself and by radiology which showed diffuse bilateral scarring worse in the right hemithorax no acute cardiopulmonary processes noted otherwise. Patient was adamant that he wanted to go home, we ambulated the patient in the emergency department prior to discharge and during ambulation he became hypoxic, tachypneic and tachycardic. At this point time do believe the patient will warrant admission. Patient's case was discussed with hospitalist for admission who accepted the patient. Patient was agreeable with this plan. He was given Solu-Medrol, DuoNebs and albuterol breathing treatments in the emergency department. Final impression: Acute on chronic hypoxic respiratory failure Dyspnea on exertion Pneumonia Disposition: Patient will be discharged home in stable condition Supervising attending attestation: Tristan GUTIERREZ History of Present Illness Chief Complaint: Shortness of Breath Narrative Narrative: Patient presenting today due to shortness of breath that he has had over the last 2 or 3 days. He does have a history of COPD and wears 4-6 L at baseline. When he arrived at the emergency department he was around 80% O2 saturation here on his portable oxygen tank. He reports that he has had a productive cough over the past few days and is coughing up green-colored sputum. He has not been more wheezy than normal. He does have a history of a previous PE and is on Eliquis. He denies fevers, chills, and chest pain. PE Risk Factors: Positive for Prior DVT or PE; Negative for Recent immobilization, Recent surgery or Recent travel [facility] Medical History Angina at rest Pulmonary embolus COVID Fecal occult blood test positive Abnormal chest CT COPD with acute exacerbation Squamous cell carcinoma of left lung Lung mass Depression Myocardial infarct Coronary artery disease Pulmonary neoplasm Wears glasses Wears dentures Cancer Anxiety Abrasion History of steroid therapy Prostate disease High cholesterol Injury of back Syncope History of weight loss Former smoker COPD (chronic obstructive pulmonary disease) On home oxygen therapy Shortness of breath on exertion Chronic cough History of stress test Cardiology follow-up encounter Chest pain No pertinent family history 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 Nocturnal hypoxemia Chronic hypoxemic respiratory failure Bronchiectasis Prostate CA CAD (coronary artery disease) HLD (hyperlipidemia) Benign essential HTN Home Medications ?Medication ?Instructions ?Recorded ?Last Taken ?Type nitroglycerin 0.4 mg sublingual 0.4 mg sublingual Q5M PRN Chest 12/29/14 1 Week Ago History tablet Pain ~07/02/20 fluticasone propionate 230 2 puff inhalation BID breathing 08/07/22 03/25/23 History mcg-salmeterol 21 mcg/actuation HFA inhaler (Advair HFA) atorvastatin 40 mg tablet 40 mg PO QHS cholesterol 03/25/23 10/04/23 History duloxetine 30 mg capsule,delayed 30 mg PO QPM DEPRESSION 03/25/23 10/04/23 History release tamsulosin 0.4 mg capsule 0.4 mg PO QPM BLADDER/ PROSTATE 03/25/23 10/04/23 History tiotropium bromide 2.5 2 puff inhalation DAILY copd 03/25/23 10/05/23 History mcg/actuation mist for inhalation (Spiriva Respimat) ezetimibe 10 mg tablet 10 mg PO DAILY cholesterol 09/28/23 10/05/23 History levalbuterol tartrate 45 2 puff inhalation Q4H PRN PRN 09/28/23 Unknown History mcg/actuation aerosol inhaler wheezing apixaban 5 mg tablet (Eliquis) 5 mg PO Q12H blood thinner 10/05/23 10/05/23 History furosemide 20 mg tablet (Lasix) 20 mg PO DAILY PRN weight gain #30 10/17/23 Unknown Rx tabs guaifenesin 600 mg tablet, 1,200 mg (2 x 600 mg) PO Q12H 10/17/23 10/05/23 Rx extended release 12 hr (Mucinex) cough 7 days #0 tabs metoprolol tartrate 25 mg tablet 25 mg PO Q6 heart 30 days #120 tabs 10/23/23 Unknown Rx prednisone 10 mg tablet See Rx Instructions .Route 10/23/23 Unknown Rx .COMPLEX sob 9 days #18 tabs fluconazole 100 mg tablet 100 mg PO DAILY #14 tabs 02/11/24 Unknown Rx albuterol sulfate 90 mcg/actuation 2 puff inhalation Q4H PRN PRN 02/19/24 Unknown History aerosol inhaler wheezing aspirin 81 mg tablet,delayed 81 mg PO DAILY heart 02/19/24 Unknown History release (Enteric Coated Aspirin) lorazepam 1 mg tablet 1 mg PO TID anxiety 02/19/24 Unknown History Allergy/AdvReac Type Severity Reaction Status Date / Time isosorbide (From Imdur) Allergy Other-patient Verified 02/19/24 14:20 blacks out Family History Other No pertinent family history Surgical History Hx of CABG Hx of heart artery stent Hx of transurethral resection of prostate Hx of pneumonectomy Hx of CABG No pertinent past surgical history Social History household members: spouse Smoking Status: Former smoker Tobacco: How many years used: 45 Electronic Cigarette Use: not used how long ago did patient quit smokin, second hand exposure: Yes alcohol intake: never substance use type: does not use ROS ROS ED Constitutional Constitutional ED: Denies chills or fever(s) Cardiovascular Cardiovascular: Denies chest pain Respiratory/Chest Respiratory/Chest: Reports cough, dyspnea, dyspnea on exertion and tachypnea; Denies wheezing Gastrointestinal Gastrointestinal: Denies abdominal pain, nausea or vomiting Musculoskeletal Musculoskeletal: Denies arthralgias or myalgias Integumentary Denies rash EXAM Physical Exam Const Vital Signs: 02/19/24 14:14 02/19/24 14:20 02/19/24 14:28 Temperature 97.6 F L 97.6 F L Temperature Source Oral Oral Pulse Rate 95 93 Respiratory Rate 27 H 36 H Respiratory Effort Short of Breath Labored Pursed Lip Respiratory Depth Normal Respiratory Pattern Tachypnea Blood Pressure 141/70 H 141/70 H Blood Pressure Mean 93 93 Pulse Ox 97 98 Oxygen Delivery Method Nasal Cannula Nasal Cannula Nasal Cannula Oxygen Flow Rate (L/min) 6 5 5 02/19/24 14:40 02/19/24 14:40 02/19/24 15:39 Temperature Temperature Source Pulse Rate 86 Respiratory Rate 21 H Respiratory Effort Respiratory Depth Respiratory Pattern Tachypnea Blood Pressure Blood Pressure Mean Pulse Ox 98 Oxygen Delivery Method Nasal Cannula Nasal Cannula Oxygen Flow Rate (L/min) 5 5 02/19/24 15:39 02/19/24 16:00 02/19/24 17:00 Temperature 97.6 F L 97.7 F L 97.7 F L Temperature Source Oral Oral Oral Pulse Rate 87 94 98 Respiratory Rate 19 H 20 H 24 H Respiratory Effort Respiratory Depth Respiratory Pattern Blood Pressure 115/62 130/76 H 126/73 H Blood Pressure Mean 79 94 90 Pulse Ox 100 98 Oxygen Delivery Method Nasal Cannula Non-Rebreather @ 15L/min Nasal Cannula Oxygen Flow Rate (L/min) 5 5 02/19/24 18:00 Temperature 97.6 F L Temperature Source Oral Pulse Rate 96 Respiratory Rate 20 H Respiratory Effort Respiratory Depth Respiratory Pattern Blood Pressure 123/73 H Blood Pressure Mean 89 Pulse Ox 100 Oxygen Delivery Method Nasal Cannula Oxygen Flow Rate (L/min) 5 Positive well nourished, well developed and no apparent distress General Appearance ED: well developed HEENT Reports normocephalic and head/scalp atraumatic Mouth ED: Yes moist mucous membranes normal Eyes PERRL and EOMs intact bilaterally Neck full ROM and supple Chest Wall inspection of chest normal Resp normal respiratory effort Resp Narrative: Coarse breath sounds to the bilateral lung bases, decreased air movement bilaterally. Cardio regular rate and regular rhythm Back/Spine normal ROM and normal to inspection Extremity normal to inspection and full ROM Neuro oriented x3, CN's II-XII intact bilaterally, moves all extremities, no focal motor deficits and no sensory deficits noted Sensorium / Orientation: awake and alert Psych mental status grossly normal and thought process normal Skin no rashes or lesions noted and no wounds MDM MDM MDM Narrative Medical decision making narrative: Patient presenting today with shortness of breath primarily with exertion he has had over the past few days. He is nontoxic-appearing. He arrived here around 80% on his 5 L portable oxygen tank. He was initially placed on a nonrebreather here at 15 L and this did bring his oxygen level up to 100%, he was able to be titrated down to 5 L supplemental O2. His O2 saturation has remained above 95%. He has had a productive cough, his WBC is 11.9, chest x-ray shows diffuse bilateral scarring, however we will cover him for pneumonia with azithromycin and Rocephin. He was also given Solu-Medrol, albuterol, and DuoNeb breathing treatments. On reexamination he is doing well, the nurse did ambulate him and he desaturated to 85% on 5 L O2 and became significantly tachypneic with respiration rate of 44 and tachycardic at 135 bpm just within a few feet of walking. I did check on him about 10 minutes later and he was still sitting at the bedside tachypneic. Given his hypoxia and shortness of breath with exertion I do think he would benefit from admission to the hospital. I spoke with the hospitalist and patient admitted in stable condition. Lab Data Attestation: I reviewed the patient's lab results. Labs: Laboratory Results - last 24 hr 02/19/24 14:20 WBC 11.9 H RBC 4.35 L Hgb 11.4 L Hct 38.6 L MCV 88.7 MCH 26.2 L MCHC 29.5 L RDW Std Deviation 51.8 H RDW Coeff of Estelita 15.9 H Plt Count 408 MPV 8.8 Immature Gran % (Auto) 1.300 H Neut % (Auto) 92.3 H Lymph % (Auto) 3.6 L [place] % (Auto) 2.4 Eos % (Auto) 0.2 Baso % (Auto) 0.2 Absolute Neuts (auto) 11.0 H Absolute Lymphs (auto) 0.43 L Nucleated RBC % 0.2 Sodium 137 Potassium 4.9 Chloride 104 Carbon Dioxide 26.0 Anion Gap 7 BUN 18 Creatinine 0.73 Estim Creat Clear Calc 77.13 Est GFR (MDRD) Af Amer 132 Est GFR (MDRD) Non-Af 109 BUN/Creatinine Ratio 24.5 H Glucose 120 H Calcium 9.3 Troponin I High Sens 51 Radiography X-Ray: Read by ED Physician Diagnostic Testing: Clinical Impression(s) from Imaging Studies Chest X-Ray 02/19/24 15:02 IMPRESSION: Diffuse bilateral scarring worse in the right hemithorax. No acute abnormality is seen. Electronically Signed: Fernando Sidhu MD at 15:47 EST , EKG Initial EKG: Comments: 86 bpm, normal sinus rhythm, no ST elevation, interpreted by attending ED physician Discharge Plan Triage Chief Complaint: Shortness of Breath ED Midlevel Provider: Chelsie Marques ED Provider: Tristan Salter Dx/Rx/DC Orders Clinical Impression: COPD exacerbation, Hypoxia Primary Care Provider: Dillan Cummins Disposition Disposition: Acute Care Hospital [facility] Discharge Date/Time: 02/19/24 19:13
[2024-02-19 15:24] LABS: Anion Gap 7 (5-15); BUN 18 mg/dL (7-18); BUN/Creat Ratio 24.5 RATIO (10-20); Calcium,Total 9.3 mg/dL (8.5-10.1); Chloride 104 mmol/L (98-107); Creatinine, Serum 0.73 mg/dL (0.70-1.30); EST Glomerular Filtration Rate 109 mL/min (>60); Est Glom Filt Rate - Afr Amer 132 mL/min (>60); Estimated Creatinine Clearance 77.13 ml/min; Glucose 120 mg/dL (74-106); Potassium 4.9 mmol/L (3.5-5.1); Sodium Level 137 mmol/L (136-145); Troponin-I HS 51 pg/mL (3.0-78.0)
[2024-02-19] MEDS: Ceftriaxone 1 GM/50 ML BAG IV (15:53)
[2024-02-19] MEDS: Azithromycin 500 MG in 0.9% Normal Saline (250mL Bag) 250 ML 250 MG IV (16:39)
--- NOTE | 2024-02-19 18:01 | HP.PCM.HOS_ITS ---
HPI - General General Date of Admission: 02/19/24 Date of Service: 02/19/24 Chief Complaint: Productive cough, wheezing, dyspnea, increased oxygen needs. 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 Upon initial ED arrival patient was reportedly 80% O2 saturation on his portable oxygen tank transition to ED oxygen immediately. He denied any recent fevers or chills. Patient does have a history of a previous pulmonary embolism and is on chronic Eliquis therapy which he has taken with no missed doses. Workup in the ED included T97.6, heart rate 95, BP 141/70, respiratory rate 27, 97% on 6 L nasal cannula with baseline previously noted to be 5-6L nasal cannula with most recent repeat assessment T97.7, heart rate 94, BP 130/76, respiratory rate 20, 100% on 5L NC, did transiently use NRB once transitioned from his tank, CBC with WC 11.9, hemoglobin 11.4, MCV 88.7, platelet 408 with left shift and lymphopenia, BMP with glucose 120 otherwise unremarkable, troponin 51, chest x-ray with diffuse bilateral scarring worse in the right hemothorax with no acute cardiopulmonary findings otherwise. In the ED patient ministered Solu-Medrol 125 mg IV x 1, DuoNeb and albuterol therapies, IV Rocephin and azithromycin. In the ED patient was ambulated and had notable tachypnea, purse lip breathing, evident shortness of breath. FORMERLY [facility], [facility] Medical History Angina at rest Pulmonary embolus COVID Fecal occult blood test positive Abnormal chest CT COPD with acute exacerbation Squamous cell carcinoma of left lung Lung mass Depression Myocardial infarct Coronary artery disease Pulmonary neoplasm Wears glasses Wears dentures Cancer Anxiety Abrasion History of steroid therapy Prostate disease High cholesterol Injury of back Syncope History of weight loss Former smoker COPD (chronic obstructive pulmonary disease) On home oxygen therapy Shortness of breath on exertion Chronic cough History of stress test Cardiology follow-up encounter Chest pain No pertinent family history 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 Nocturnal hypoxemia Chronic hypoxemic respiratory failure Bronchiectasis Prostate CA CAD (coronary artery disease) HLD (hyperlipidemia) Benign essential HTN Home Medications ?Medication ?Instructions ?Recorded ?Last Taken ?Type nitroglycerin 0.4 mg sublingual 0.4 mg sublingual Q5M PRN Chest 12/29/14 1 Week Ago History tablet Pain ~07/02/20 fluticasone propionate 230 2 puff inhalation BID breathing 08/07/22 03/25/23 History mcg-salmeterol 21 mcg/actuation HFA inhaler (Advair HFA) atorvastatin 40 mg tablet 40 mg PO QHS cholesterol 03/25/23 10/04/23 History duloxetine 30 mg capsule,delayed 30 mg PO QPM DEPRESSION 03/25/23 10/04/23 History release tamsulosin 0.4 mg capsule 0.4 mg PO QPM BLADDER/ PROSTATE 03/25/23 10/04/23 History tiotropium bromide 2.5 2 puff inhalation DAILY copd 03/25/23 10/05/23 History mcg/actuation mist for inhalation (Spiriva Respimat) ezetimibe 10 mg tablet 10 mg PO DAILY cholesterol 09/28/23 10/05/23 History levalbuterol tartrate 45 2 puff inhalation Q4H PRN PRN 09/28/23 Unknown History mcg/actuation aerosol inhaler wheezing apixaban 5 mg tablet (Eliquis) 5 mg PO Q12H blood thinner 10/05/23 10/05/23 History furosemide 20 mg tablet (Lasix) 20 mg PO DAILY PRN weight gain #30 10/17/23 Unknown Rx tabs guaifenesin 600 mg tablet, 1,200 mg (2 x 600 mg) PO Q12H 10/17/23 10/05/23 Rx extended release 12 hr (Mucinex) cough 7 days #0 tabs metoprolol tartrate 25 mg tablet 25 mg PO Q6 heart 30 days #120 tabs 10/23/23 Unknown Rx prednisone 10 mg tablet See Rx Instructions .Route 10/23/23 Unknown Rx .COMPLEX sob 9 days #18 tabs fluconazole 100 mg tablet 100 mg PO DAILY #14 tabs 02/11/24 Unknown Rx albuterol sulfate 90 mcg/actuation 2 puff inhalation Q4H PRN PRN 02/19/24 Unknown History aerosol inhaler wheezing aspirin 81 mg tablet,delayed 81 mg PO DAILY heart 02/19/24 Unknown History release (Enteric Coated Aspirin) lorazepam 1 mg tablet 1 mg PO TID anxiety 02/19/24 Unknown History Allergy/AdvReac Type Severity Reaction Status Date / Time isosorbide (From Imdur) Allergy Other-patient Verified 02/19/24 14:20 blacks out Family History Mother Cancer Father Heart disease COPD (chronic obstructive pulmonary disease) Surgical History Hx of CABG Hx of heart artery stent Hx of transurethral resection of prostate Hx of pneumonectomy Hx of CABG No pertinent past surgical history Social History household members: spouse Smoking Status: Former smoker Tobacco: How many years used: 45 Electronic Cigarette Use: not used how long ago did patient quit smokin, second hand exposure: Yes alcohol intake: never substance use type: does not use ROS ROS Narrative Admission Review of Systems: CONSTITUTIONAL: No weight loss, fever, chills, + weakness or fatigue. HEENT: Eyes: No visual loss, blurred vision, double vision or yellow sclerae. Ears, Nose, Throat: No hearing loss, sneezing, congestion, runny nose or sore throat. SKIN: No rash or itching, lesions, wounds. CARDIOVASCULAR: No chest pain, chest pressure or chest discomfort, palpitations, edema, orthopnea, syncopal events. RESPIRATORY: + Acute on chronic dyspnea, productive cough, wheezing. No hemoptysis. GASTROINTESTINAL: No anorexia, nausea, vomiting or diarrhea, abdominal pain, melena, BRBPR. GENITOURINARY: No dysuria, frequency, urgency or retention. NEUROLOGICAL: No headache, dizziness, syncope, paralysis, ataxia, numbness or tingling in the extremities, focal weakness, change in bowel or bladder control, seizure. MUSCULOSKELETAL: + muscle, back pain, joint pain or stiffness. HEMATOLOGIC: + Chronic anemia, easy bleeding/bruising LYMPHATICS: No enlarged nodes. No history of splenectomy. PSYCHIATRIC: + History of anxiety and depression. ENDOCRINOLOGIC: No reports of sweating, cold or heat intolerance. No polyuria or polydipsia. ALLERGIES: + History of allergic rhinitis. Vital Signs Vital Signs Vital Signs: 02/19/24 14:14 02/19/24 14:20 02/19/24 14:28 Temperature 97.6 F L 97.6 F L Temperature Source Oral Oral Pulse Rate 95 93 Respiratory Rate 27 H 36 H Respiratory Effort Short of Breath Labored Pursed Lip Respiratory Depth Normal Respiratory Pattern Tachypnea Blood Pressure 141/70 H 141/70 H Blood Pressure Mean 93 93 Pulse Ox 97 98 Oxygen Delivery Method Nasal Cannula Nasal Cannula Nasal Cannula Oxygen Flow Rate (L/min) 6 5 5 02/19/24 14:40 02/19/24 14:40 02/19/24 15:39 Temperature Temperature Source Pulse Rate 86 Respiratory Rate 21 H Respiratory Effort Respiratory Depth Respiratory Pattern Tachypnea Blood Pressure Blood Pressure Mean Pulse Ox 98 Oxygen Delivery Method Nasal Cannula Nasal Cannula Oxygen Flow Rate (L/min) 5 5 02/19/24 15:39 02/19/24 16:00 Temperature 97.6 F L 97.7 F L Temperature Source Oral Oral Pulse Rate 87 94 Respiratory Rate 19 H 20 H Respiratory Effort Respiratory Depth Respiratory Pattern Blood Pressure 115/62 130/76 H Blood Pressure Mean 79 94 Pulse Ox 100 Oxygen Delivery Method Nasal Cannula Non-Rebreather @ 15L/min Oxygen Flow Rate (L/min) 5 Weight Weight: 169 lb 4.8 oz Body Mass Index (BMI) 23.6 Physical Exam Narrative Physical Examination: General: Awake, alert, oriented x 3 and cooperative, seated upright in ED bed, fatigued, notes dyspnea is improved since initial ED arrival with treatments. Skin: Normal color, normal turgor, no icterus, no cyanosis except significant very staged ecchymoses, abrasions. HEENT: AT/NC, EOMI, PERRLA, mildly dry MM, no carotid bruits or JVD noted. Lungs: Severely diminished, greater bases, mildly increased respiratory rate but no distress, still some end expiratory wheezing, no rales or rhonchi. Heart: Tachycardic, regular; no gallop, rub audible. Abdomen: Soft, NTTP, ND, hyperactive BS, no appreciated HSM. Extremities: No cyanosis, clubbing, or edema, see skin. Neurological: Patient awake, alert, oriented as noted, cognitive function intact; pupils equally reactive to light and accommodation, cranial nerves grossly normal, moving all 4 extremities, no focal deficits, strength severely global decrease secondary to acute presentation. Psychiatric: Affect appears flat, fatigued, no acute evidence of depressive or anxiety feelings but does have underlying history. Results Lab / Micro Data 02/19/24 14:20 02/19/24 14:20 Labs: Laboratory Results - last 24 hr 02/19/24 14:20: WBC 11.9 H, RBC 4.35 L, Hgb 11.4 L, Hct 38.6 L, MCV 88.7, MCH 26.2 L, MCHC 29.5 L, RDW Std Deviation 51.8 H, RDW Coeff of Estelita 15.9 H, Plt Count 408, MPV 8.8, Immature Gran % (Auto) 1.300 H, Neut % (Auto) 92.3 H, Lymph % (Auto) 3.6 L, Dickenson % (Auto) 2.4, Eos % (Auto) 0.2, Baso % (Auto) 0.2, Absolute Neuts (auto) 11.0 H, Absolute Lymphs (auto) 0.43 L, Nucleated RBC % 0.2, Sodium 137, Potassium 4.9, Chloride 104, Carbon Dioxide 26.0, Anion Gap 7, BUN 18, Creatinine 0.73, Estim Creat Clear Calc 77.13, Est GFR (MDRD) Af Amer 132, Est GFR (MDRD) Non-Af 109, BUN/Creatinine Ratio 24.5 H, Glucose 120 H, Calcium 9.3, Troponin I High Sens 51 Imaging Radiology Impression Chest X-Ray 02/19/24 15:02 IMPRESSION: Diffuse bilateral scarring worse in the right hemithorax. No acute abnormality is seen. 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 #1. Acute on Chronic Hypoxic Respiratory Failure secondary to Acute on Chronic COPD exacerbation with underlying history of bronchiectasis: CXR w/ chronic changes, CBC on admission w/ WBC 11.9 with left shift although afebrile. Will admit to MS given stable vital signs, maintain on oxygen with wean as tolerated to home oxygen supplementation, continue ATC duonebs, PRN albuterol, IV methylprednisolone, per review of cultures until further workup obtained will maintain on IV Rocephin, encourage HOB, IS parameters, will obtain sputum Cx, respiratory viral panel, procalcitonin. #2. CAD: Status post CABG and PCI, will continue Eliquis, continue aspirin, continue statin as well as metoprolol regimen, per current list does not appear to be on NÉSTOR inhibitor/ARB. #3. History left lung squamous cell cancer complicated as noted with chronic hypoxic respiratory failure on supplemental oxygen: Status post pneumonectomy, unclear other intervention including radiation/chemotherapy, encourage continued outpatient follow-up with oncology as previously arranged, from discussion suspect in remission. #4. Chronic normocytic anemia: Admission hemoglobin 11.4, MCV 88.7, baseline hemoglobin noted previously 11/11/2019 410.4 however previous to this was more 7- 9 range, continue to trend CBC. #5. Anxiety and depression: We will continue patient home lorazepam regimen with hold parameters as needed as well as duloxetine home regimen. #6. Hypertension: Continue home regimen including metoprolol with hold parameters as needed, PRN hydralazine. #7. Hyperlipidemia: We will continue patient on statin therapy. #8. Former tobacco use: Encourage continued tobacco cessation. #9. History prostate cancer with BPH with obstructive pathology: Status post TURP, continue patient on Flomax regimen, consider admission. #10. DVT prophylaxis: Continue patient home Eliquis therapy. #11. CODE status: Patient DEEPTHI is his who is present and living will is currently in place. Discussed CODE status at length including difference between FULL code, DNR-CCA and DNR-CC status. Following discussions about the differences in these status, requested DNR-CCA, no intubation. Advanced Care Planning Face to Face Time: 16 minutes. Charges/Coding Visit Charges Inpatient E&M: 98627 Init Hosp L3 Procedures Hospitalists Procedures: 56074 Advncd Care Plan 30 Min
[2024-02-19 19:17] LABS: Magnesium 2.3 mg/dL (1.6-2.6)
[2024-02-19 19:31] LABS: Procalcitonin 0.26 ng/mL (0.00-0.09)
--- NOTE | 2024-02-19 19:37 | CASEMGMT ---
Addendum entered by Shannan Castanon 02/19/24 19:42: Specialists: Dr. Poly Calvillo ([facility] acls nurse), Dr. Ball ( oncologist), Dr. Freeman (), Dr. Drew ( orthopedics), Dr. Manzano (), Dr. Moreno ([facility]). Original Note: Care Management Face to Face with patient for initial transition planning/care coordination assessment in the ED. This comic writer introduced self and role at [facility]. Patient lying in bed, alert and oriented with , Serenity, at bedside. Patient willing to participate in assessment and is able to answer all questions appropriately; permission given to speak in front of . Admitting Diagnosis: SOB/worsening dyspnea Other diagnosis history: pulmonary embolism, lung cancer, coronary artery disease. PCP: Dr. Cummins Specialists: Preferred Pharmacy: [facility] [address] [facility]. Insurance: Medicare A + B (primary). [place] (secondary). Prescription Benefit: yes Living Will/HPOA: yes, Serenity is listed. The documents are on file here. LNOK: and 2 daughters, Malu (lives in [place]) and Joan (lives near [place]). Living Arrangements: ranch style home with 1 step to enter. Basement with full flight of stairs, but patient does not have to go downstairs. Independent prior to this. Transportation: both patient and his drive. DME: 3 O2 concentrators (1 portable), O2 through [employer] (5L), grab bars, shower chair, wheelchair, walker, transport wheelchair, pulse ox, blood pressure cuff, nebulizer HHC: currently has a nurse through [facility]. PT ended about 6 weeks ago. SNF/Rehab: TCU in summer 2023. Community Resources: none - [facility] as a resource was offered, but patient denied. Behavioral Health History: depression and anxiety. Medical records show patient is on an anti-depressant. Reports not receiving counseling. Patient states he feels ?overwhelmed? with recent health issues and is ?tired.? Patient made a comment about being ready to ?give up hope.? This SW asked if patient had ever had suicidal thoughts or attempts. Patient denied historical or current suicidal thoughts/attempts. Patient does not have a gun in the home. Patient goals: Currently patient wishes to discharge home and currently indicates he does not have a desire for HHC or SNF, and to feel as if patient is ?pestered constantly? with people ?trying to be helpful.? Patient encouraged patient to do what is recommended by hospital team, which patient reluctantly agreed to. Disposition Plan: Admission to acute; RN CM/SW to follow for discharge planning needs that may arise. Patient is currently active with skilled home health for nursing and will need a resumption of care order should this still be needed at discharge. Shannan Castanon, GEOPHYSICAL COMPUTER, GAME FARM HELPER
[2024-02-19] MEDS: 0.9% Saline Lock 10 ML Syringe IV (21:59)
[2024-02-19] MEDS: LORazepam 1 MG Tablet PO (22:01)
[2024-02-19] MEDS: APIXABAN 5 MG TABLET PO (22:01)
[2024-02-19] MEDS: Atorvastatin Calcium 40 MG Tablet PO (22:01)
[2024-02-19] MEDS: Tamsulosin HCl 0.4 MG Capsule PO (22:02)
[2024-02-19] MEDS: DULoxetine Hcl 30 MG Capsule PO (22:02)
[2024-02-19] MEDS: Metoprolol Tartrate 25 MG Tablet PO (22:06)
[2024-02-20] VITALS (18 sets, daily range): BP systolic 120–147; BP diastolic 61–80; PULSE 74–109; RESP 18–32; TEMP 36.3–36.6; O2SAT 90–98; BMI 23.0
[2024-02-20] MEDS: Menthol/Lanolin/Calamine/Znox 113 GM Tube 1 APPLIC TOPICAL ×3 (00:09→21:34)
[2024-02-20] MEDS: Ipratropium/Albuterol Sulfate 3 ML AMPUL.NEB INHALATION ×6 (03:28→23:10)
[2024-02-20] MEDS: LORazepam 1 MG Tablet PO ×3 (06:46→21:32)
[2024-02-20] MEDS: 0.9% Saline Lock 10 ML Syringe IV ×5 (06:47→21:32)
[2024-02-20 06:52] LABS: Absolute Lymphocyte Count 0.21 X10^3/uL (0.83-4.51); Absolute Neutrophil Count 5.9 X10^3/uL (2.0-7.7); Hematocrit 33.6 % (40-54); Lymphocyte # 0.21 X10^3/ul (0.83-4.51); Lymphocyte % 3.4 % (19-41); Mean Corp Hgb Conc 29.8 g/dL (32-36); Mean Corpuscular Hgb 25.7 pg (27.0-32.0); Mean Corpuscular Volume 86.4 fL (80-94); Mean Platelet Vol. 8.7 fl (6.2-12.0); Monocyte# 0.06 X10^3/uL; NRBC Flagged by Analyzer 0 % (0-5); Neutrophil # 5.86 X10^3/uL (2.7-7.7); Neutrophil % 94.2 % (47-70); POSITIVE DIFFERENTIAL YES; Platelet Count 370 K/mm3 (150-450); RBC Distribution Width SD 50.3 fl (35.1-43.9); Red Blood Count 3.89 M/mm3 (4.6-6.2); White Blood Count 6.2 K/mm3 (4.4-11.0)
[2024-02-20 07:19] LABS: ALB/GLOB Ratio 0.6 RATIO (0.9-2.4); AST(SGOT) 16 U/L (15-37); Alanine Aminotransfer ALT/SGPT 15 U/L (16-61); Albumin, Serum 2.3 g/dL (3.2-5.0); Alkaline Phosphatase 91 U/L (45-117); Anion Gap 5 (5-15); BUN 16 mg/dL (7-18); Calcium,Total 8.9 mg/dL (8.5-10.1); Chloride 106 mmol/L (98-107); Creatinine, Serum 0.57 mg/dL (0.70-1.30); EST Glomerular Filtration Rate 145 mL/min (>60); Est Glom Filt Rate - Afr Amer 176 mL/min (>60); Estimated Creatinine Clearance 76.62 ml/min; Globulin 3.8 g/dL (2.2-4.2); Glucose 167 mg/dL (74-106); Potassium 3.9 mmol/L (3.5-5.1); Protein, Total 6.1 g/dL (6.4-8.2); Sodium Level 139 mmol/L (136-145)
[2024-02-20] MEDS: Ensure Plus High Protein 120 ML LIQUID PO ×2 (09:30→13:04)
[2024-02-20] MEDS: Ezetimibe 10 MG Tablet PO (09:32)
[2024-02-20] MEDS: APIXABAN 5 MG TABLET PO ×2 (09:32→21:32)
[2024-02-20] MEDS: Aspirin E.C. 81 MG Tablet PO (09:32)
--- NOTE | 2024-02-20 09:56 | NURSING ---
Lopressor dose clarified with and patient. Home med list update. Text sent to Gab[facility]le. Awaiting response.
[2024-02-20] MEDS: Ceftriaxone 1 GM/50 ML BAG IV (10:04)
--- NOTE | 2024-02-20 11:02 | PN.HOSP_ITS ---
Reason for Visit Reason for Visit: Diagnoses Chronic obstructive pulmonary disease with (acute) exacerbation (02/19/24) Hypoxemia (02/19/24) Subjective Subjective Saw patient at bedside this morning. Patient was mildly fatigued but otherwise sitting up comfortably in bed, conversing normally, in no acute distress. Stated he felt somewhat improved today from a breathing standpoint compared to yesterday. Has had improvement in his cough and sputum reduction. He notably did not have any coughing episodes during our encounter. Still reported more shortness of breath on exertion than his baseline. Denied any fevers or chills. No other new concerns today. Objective Data Objective Data Vital Signs: Vital Signs Temp Pulse Resp BP Pulse Ox O2 Del Method O2 Flow Rate 97.6 F L 90 22 H 147/78 H 96 Nasal Cannula 3 02/20/24 06:44 02/20/24 08:15 02/20/24 08:15 02/20/24 06:44 02/20/24 08:15 02/20/24 08:15 02/20/24 08:15 Oxygen Flow Rate (L/min) 3 Oxygen Delivery Method Nasal Cannula Weight: 74.8 kg Body Mass Index (BMI) 23.0 Intake & Output: Intake and Output for Last 24 Hours 02/18/24 02/19/24 02/20/24 23:59 23:59 23:59 Intake Total 705 / 705 300 / 300 Output Total 250 / 250 550 / 550 Balance 455 / 455 -250 / -250 Lab / Micro Data 02/20/24 05:44 02/20/24 05:44 Labs: Laboratory Results - last 24 hr 02/19/24 14:20: WBC 11.9 H, RBC 4.35 L, Hgb 11.4 L, Hct 38.6 L, MCV 88.7, MCH 26.2 L, MCHC 29.5 L, RDW Std Deviation 51.8 H, RDW Coeff of Estelita 15.9 H, Plt Count 408, MPV 8.8, Immature Gran % (Auto) 1.300 H, Neut % (Auto) 92.3 H, Lymph % (Auto) 3.6 L, [place] % (Auto) 2.4, Eos % (Auto) 0.2, Baso % (Auto) 0.2, Absolute Neuts (auto) 11.0 H, Absolute Lymphs (auto) 0.43 L, Nucleated RBC % 0.2, Sodium 137, Potassium 4.9, Chloride 104, Carbon Dioxide 26.0, Anion Gap 7, BUN 18, Creatinine 0.73, Estim Creat Clear Calc 77.13, Est GFR (MDRD) Af Amer 132, Est GFR (MDRD) Non-Af 109, BUN/Creatinine Ratio 24.5 H, Glucose 120 H, Calcium 9.3, Troponin I High Sens 51 02/19/24 18:57: Magnesium 2.3, Procalcitonin 0.26 H 02/20/24 05:44: WBC 6.2, RBC 3.89 L, Hgb 10.0 L, Hct 33.6 L, MCV 86.4, MCH 25.7 L, MCHC 29.8 L, RDW Std Deviation 50.3 H, RDW Coeff of Estelita 16.0 H, Plt Count 370, MPV 8.7, Immature Gran % (Auto) 1.400 H, Neut % (Auto) 94.2 H, Lymph % (Auto) 3.4 L, [place] % (Auto) 1.0, Eos % (Auto) 0.0, Baso % (Auto) 0.0, Absolute Neuts (auto) 5.9, Absolute Lymphs (auto) 0.21 L, Nucleated RBC % 0, Sodium 139, Potassium 3.9, Chloride 106, Carbon Dioxide 28.0, Anion Gap 5, BUN 16, C reatinine 0.57 L, Estim Creat Clear Calc 76.62, Est GFR (MDRD) Af Amer 176, Est GFR (MDRD) Non-Af 145, BUN/Creatinine Ratio 28.0 H, Glucose 167 H, Calcium 8.9, Total Bilirubin 0.40, AST 16, ALT 15 L, Alkaline Phosphatase 91, Total Protein 6.1 L, Albumin 2.3 L, Globulin 3.8, Albumin/Globulin Ratio 0.6 L Micro: Microbiology 02/19/24 18:57 Mucosa - Nose Respiratory Panel (PCR) - Final 02/19/24 18:57 Mucosa - Nose SARS-CoV-2, Influenza & RSV (PCR) - Final Radiography Diagnostic Testing: Radiology Impression Chest X-Ray 02/19/24 15:02 IMPRESSION: Diffuse bilateral scarring worse in the right hemithorax. No acute abnormality is seen. Electronically Signed: Fernando Sidhu MD at 15:47 EST , Physical Exam Const alert, oriented x3, no apparent distress and average body habitus Constitutional Narrative: Elderly male, mildly fatigued appearing but otherwise sitting up comfortably in bed, conversing normally, in no acute distress. General Appearance: cooperative and comfortable HEENT normocephalic, head/scalp atraumatic, hearing grossly normal bilaterally, nasal mucous membranes and turbinates normal and moist oral mucous membranes Eyes PERRL, EOMs intact bilaterally and conjunctivae normal Neck full ROM Chest inspection of chest normal Resp normal respiratory effort and no use of accessory muscles Resp Narrative: Breathing comfortably on 3 L nasal cannula at rest. Patient has crackles noted in bilateral lung bases and mid right lung zone with mild wheezing noted in lung bases. Otherwise had good air movement throughout. Cardio regular rate, regular rhythm, no murmurs and peripheral pulses 2+ throughout GI normal to inspection, nondistended, normoactive bowel sounds, soft to palpation, non-tender and non-distended Back/Spine normal ROM Extremity normal to inspection, full ROM and no pedal edema Skin no rashes or lesions noted Psych mental status grossly normal Assessment & Plan Assessment/Plan (1) COPD exacerbation: (2) Hypoxia: PLAN: Plan Patient is an 83-year-old male who presented [facility] ED on 02/19/2024 with worsening shortness of breath. 1. Acute on chronic hypoxic respiratory failure secondary to acute COPD exacerbation with right-sided community-acquired pneumonia ? Patient on home 4 to 5 L nasal cannula. Presented with worsening shortness of breath, hypoxia, wheezing and greenish sputum production. Chest x-ray on admit showed diffuse bilateral scarring and worsening right sided opacity compared to prior chest x-ray in September concerning for pneumonia. Infectious workup negative to this point. Continue treatment with IV steroids, IV antibiotics and scheduled DuoNebs for now. Has had improvement from admission. If patient continues to improve tomorrow, will plan to transition to p.o. steroids and antibiotics in preparation for discharge home. Will need O2 testing prior to discharge. Continue home inhalers. 2. Normocytic anemia, recent history of GI bleed with acute blood loss anemia ? Patient hospitalized in September with acute on chronic anemia. Had outpatient EGD and colonoscopy done shortly before that admission with cauterization of 2 duodenal angioplastic lesions and several similar lesions in lower colon. Had hemoglobin dropped to 6.6 with significant improvement after 3 units of blood. Repeat scopes did not find an active source of bleeding. Hemoglobin 11.4 on admit, down to 10.0 on hospital day 2 after IV fluid resuscitation. Stable, no need to monitor further CBCs while inpatient. Continue home PPI. Chronic medical conditions: ? History of CAD with CABG and stenting, hypertension, hyperlipidemia: Stable. Continue home aspirin, statin, Zetia, Lopressor. ? BPH with obstructive symptoms: Continue home Flomax. ? Anxiety/depression: Stable. Continue home duloxetine and Ativan. ? 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 ? History of left-sided lung cancer s/p surgical resection DVT prophylaxis: Not indicated, on Eliquis CODE STATUS: DNR CCA, DNI Expected disposition: Home, 1 to 2 days Total clinical time spent by myself addressing the patient's medical issues, reviewing all the data, and collaborating with patient's care team: 35 minutes. Charges/Coding Visit Charges Inpatient E&M: 63974 Subs Hosp L2
--- NOTE | 2024-02-20 14:10 | CASEMGMT ---
RN CM into pt room, pt sitting up in bed with oxygen on. Pt states he does want [facility] to continue upon dc. VANESSA order entered. Pt has portable concentrator present in room. Pt denies any further homegoing needs at this time. TC to [facility], left vm that pt is hospitalized and wants to resume care upon dc.
--- NOTE | 2024-02-20 15:12 | NURSING ---
Pt on 3L NC with saturation mid 90's this morning. During rounding, this nurse noticed o2 level turned up to 5L. Pt's admitted to adjusting it. Education (verbal & written)provided regarding COPD and oxygen levels.
[2024-02-20] MEDS: 0.9% Normal Saline (100mL Bag) 100 ML 15 ML IV (15:28)
[2024-02-20] MEDS: Azithromycin 500 MG in 0.9% Normal Saline (250mL Bag) 250 ML 250 MG IV (15:28)
[2024-02-20] MEDS: Metoprolol Tartrate 25 MG Tablet 12.5 MG PO (21:32)
[2024-02-20] MEDS: Atorvastatin Calcium 40 MG Tablet PO (21:32)
[2024-02-20] MEDS: DULoxetine Hcl 30 MG Capsule PO (21:33)
[2024-02-20] MEDS: Tamsulosin HCl 0.4 MG Capsule PO (21:33)
[2024-02-21] VITALS (13 sets, daily range): BP systolic 130–142; BP diastolic 74–82; PULSE 75–104; RESP 17–26; TEMP 36.6–37.1; O2SAT 95–99; BMI 23.5
[2024-02-21] MEDS: Ipratropium/Albuterol Sulfate 3 ML AMPUL.NEB INHALATION ×5 (02:55→20:25)
[2024-02-21] MEDS: 0.9% Saline Lock 10 ML Syringe IV ×3 (05:38→22:17)
[2024-02-21] MEDS: LORazepam 1 MG Tablet PO ×3 (05:38→20:48)
[2024-02-21] MEDS: Metoprolol Tartrate 25 MG Tablet 12.5 MG PO ×2 (08:59→20:48)
[2024-02-21] MEDS: Menthol/Lanolin/Calamine/Znox 113 GM Tube 1 APPLIC TOPICAL ×2 (08:59→22:18)
[2024-02-21] MEDS: APIXABAN 5 MG TABLET PO ×2 (08:59→20:48)
[2024-02-21] MEDS: Aspirin E.C. 81 MG Tablet PO (08:59)
[2024-02-21] MEDS: Ezetimibe 10 MG Tablet PO (09:02)
[2024-02-21] MEDS: Albuterol 2.5 MG/3 ML VIAL.NEB. INHALATION (09:10)
[2024-02-21] MEDS: 0.9% Normal Saline (100mL Bag) 100 ML 15 ML IV (09:49)
[2024-02-21] MEDS: Ceftriaxone 1 GM/50 ML BAG IV (09:49)
--- NOTE | 2024-02-21 10:11 | PN.HOSP_ITS ---
Reason for Visit Reason for Visit: Diagnoses Chronic obstructive pulmonary disease with (acute) exacerbation (02/19/24) Hypoxemia (02/19/24) Subjective Subjective Saw patient at bedside this morning. Patient was having a breathing treatment done when I saw him. Stated that he had fairly significant shortness of breath with any activity this morning. Does feel somewhat improved at rest compared to his baseline but the level of shortness of breath with activity was still concerning to him. He denied any fevers or chills. Denied any other new concerns this morning. Objective Data Objective Data Vital Signs: Vital Signs Temp Pulse Resp BP Pulse Ox O2 Del Method O2 Flow Rate 97.8 F 104 H 24 H 131/74 H 95 Nasal Cannula 3 02/21/24 07:52 02/21/24 09:11 02/21/24 09:11 02/21/24 07:52 02/21/24 09:33 02/21/24 09:33 02/21/24 09:33 Oxygen Flow Rate (L/min) 3 Oxygen Delivery Method Nasal Cannula Weight: 76.2 kg Body Mass Index (BMI) 23.5 Intake & Output: Intake and Output for Last 24 Hours 02/19/24 02/20/24 02/21/24 23:59 23:59 23:59 Intake Total 705 / 705 1455.25 / 1455.25 249.75 / 249.75 Output Total 250 / 250 730 / 730 100 / 100 Balance 455 / 455 725.25 / 725.25 149.75 / 149.75 Lab / Micro Data 02/20/24 05:44 02/20/24 05:44 Micro: Microbiology 02/19/24 18:57 Mucosa - Nose Respiratory Panel (PCR) - Final 02/19/24 18:57 Mucosa - Nose SARS-CoV-2, Influenza & RSV (PCR) - Final Physical Exam Const alert, oriented x3, no apparent distress and average body habitus Constitutional Narrative: Elderly male, mildly fatigued appearing but otherwise laying back comfortably in bed, conversing normally, in no acute distress. General Appearance: cooperative and comfortable HEENT normocephalic, head/scalp atraumatic, hearing grossly normal bilaterally, nasal mucous membranes and turbinates normal and moist oral mucous membranes Eyes PERRL, EOMs intact bilaterally and conjunctivae normal Neck full ROM Chest inspection of chest normal Resp normal respiratory effort and no use of accessory muscles Resp Narrative: Breathing comfortably on 4 L nasal cannula at rest. Patient has crackles noted in bilateral lung bases and mid right lung zone with mild wheezing noted in lung bases. Otherwise had good air movement throughout. Stable. Cardio regular rate, regular rhythm, no murmurs and peripheral pulses 2+ throughout GI normal to inspection, nondistended, normoactive bowel sounds, soft to palpation, non-tender and non-distended Back/Spine normal ROM Extremity normal to inspection, full ROM and no pedal edema Skin no rashes or lesions noted Psych mental status grossly normal Assessment & Plan Assessment/Plan (1) COPD exacerbation: (2) Hypoxia: PLAN: Plan Patient is an 83-year-old male who presented [facility] ED on 02/19/2024 with worsening shortness of breath. 1. Acute on chronic hypoxic respiratory failure secondary to acute COPD exacerbation with right-sided community-acquired pneumonia versus inflammatory disease ? Patient on home 4 to 5 L nasal cannula. Presented with worsening shortness of breath, hypoxia, wheezing and greenish sputum production. Chest x-ray on admit showed diffuse bilateral scarring and worsening right sided opacity compared to prior chest x-ray in September concerning for pneumonia versus some degree of inflammatory disease. Infectious workup negative to this point. Continue treatment with IV steroids, IV antibiotics and scheduled DuoNebs for now. Has had some improvement from admission but does continue to have significant shortness of breath with exertion. Will continue IV Solu-Medrol for today and transition to p.o. prednisone tomorrow. Patient will need O2 testing prior to discharge. If patient has shown more improvement, hopeful for discharge home tomorrow. Continue home long-acting inhalers. 2. Normocytic anemia, recent history of GI bleed with acute blood loss anemia ? Patient hospitalized in September with acute on chronic anemia. Had outpatient EGD and colonoscopy done shortly before that admission with cauterization of 2 duodenal angioplastic lesions and several similar lesions in lower colon. Had hemoglobin dropped to 6.6 with significant improvement after 3 units of blood. Repeat scopes did not find an active source of bleeding. Hemoglobin 11.4 on admit, down to 10.0 on hospital day 2 after IV fluid resuscitation. Stable, no need to monitor further CBCs while inpatient. Continue home PPI. Chronic medical conditions: ? History of CAD with CABG and stenting, hypertension, hyperlipidemia: Stable. Continue home aspirin, statin, Zetia, Lopressor. ? BPH with obstructive symptoms: Continue home Flomax. ? Anxiety/depression: Stable. Continue home duloxetine and Ativan. ? 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 ? History of left-sided lung cancer s/p surgical resection DVT prophylaxis: Not indicated, on Eliquis CODE STATUS: DNR CCA, DNI Expected disposition: Home, 1 to 2 days Total clinical time spent by myself addressing the patient's medical issues, reviewing all the data, and collaborating with patient's care team: 35 minutes. Charges/Coding Visit Charges Inpatient E&M: 42019 Subs Hosp L2
[2024-02-21] MEDS: Azithromycin 500 MG in 0.9% Normal Saline (250mL Bag) 250 ML 250 MG IV (10:29)
[2024-02-21] MEDS: Acetaminophen 325 MG Tablet 650 MG PO ×2 (11:37→20:05)
[2024-02-21] MEDS: Senna/Docusate Sodium 1 Tablet 2 TABLET PO ×2 (13:29→20:48)
[2024-02-21] MEDS: oxyCODONE 5 MG Tablet PO (13:30)
--- NOTE | 2024-02-21 13:38 | NURSING ---
Pt's adjusted o2 concentration from 3L to 5.5L. Pt o2 sats range from low-mid 90's on 3L. . Education and reassurance provided on pt's condition and level of oxygen saturation. This occurred yesterday as well. This nurse reiterated the importance of allowing nursing staff monitor oxygen requirements.
[2024-02-21] MEDS: Atorvastatin Calcium 40 MG Tablet PO (20:48)
[2024-02-21] MEDS: Tamsulosin HCl 0.4 MG Capsule PO (20:48)
[2024-02-21] MEDS: DULoxetine Hcl 30 MG Capsule PO (20:48)
[2024-02-21] MEDS: Fluorometholone 0.1% Susp 1 DRP DROPS OPHTHALMIC (20:49)
[2024-02-22] VITALS (12 sets, daily range): BP systolic 118–146; BP diastolic 69–86; PULSE 79–92; RESP 17–24; TEMP 36.4–36.5; O2SAT 85–98; BMI 23.5
[2024-02-22] MEDS: Ipratropium/Albuterol Sulfate 3 ML AMPUL.NEB INHALATION ×5 (03:30→15:32)
[2024-02-22] MEDS: LORazepam 1 MG Tablet PO ×2 (05:39→14:10)
[2024-02-22 07:50] LABS: Hematocrit 35.8 % (40-54); Hemoglobin 10.3 g/dL (13.0-16.5); Mean Corp Hgb Conc 28.8 g/dL (32-36); Mean Corpuscular Hgb 25.4 pg (27.0-32.0); Mean Corpuscular Volume 88.2 fL (80-94); Platelet Count 381 K/mm3 (150-450); RBC Distribution Width SD 52.1 fl (35.1-43.9); Red Blood Count 4.06 M/mm3 (4.6-6.2); White Blood Count 11.2 K/mm3 (4.4-11.0)
[2024-02-22] MEDS: APIXABAN 5 MG TABLET PO (08:01)
[2024-02-22] MEDS: Aspirin E.C. 81 MG Tablet PO (08:01)
[2024-02-22] MEDS: Metoprolol Tartrate 25 MG Tablet 12.5 MG PO (08:01)
[2024-02-22] MEDS: predniSONE 20 MG Tablet 40 MG PO (08:02)
[2024-02-22] MEDS: Fluorometholone 0.1% Susp 1 DRP DROPS OPHTHALMIC (08:02)
[2024-02-22] MEDS: Senna/Docusate Sodium 1 Tablet 2 TABLET PO (08:02)
[2024-02-22] MEDS: Ezetimibe 10 MG Tablet PO (08:03)
[2024-02-22] MEDS: Menthol/Lanolin/Calamine/Znox 113 GM Tube 1 APPLIC TOPICAL (08:03)
[2024-02-22 08:17] LABS: Anion Gap 4 (5-15); BUN 27 mg/dL (7-18); Calcium,Total 8.9 mg/dL (8.5-10.1); Chloride 108 mmol/L (98-107); Creatinine, Serum 0.61 mg/dL (0.70-1.30); EST Glomerular Filtration Rate 134 mL/min (>60); Est Glom Filt Rate - Afr Amer 162 mL/min (>60); Estimated Creatinine Clearance 77.13 ml/min; Glucose 159 mg/dL (74-106); Potassium 4.1 mmol/L (3.5-5.1); Sodium Level 141 mmol/L (136-145)
[2024-02-22] MEDS: Ceftriaxone 1 GM/50 ML BAG IV (09:30)
[2024-02-22] MEDS: 0.9% Saline Lock 10 ML Syringe IV (09:30)
[2024-02-22] MEDS: oxyCODONE 5 MG Tablet PO ×2 (10:37→14:10)
[2024-02-22] MEDS: Azithromycin 500 MG in 0.9% Normal Saline (250mL Bag) 250 ML 250 MG IV (10:37)
--- NOTE | 2024-02-22 12:00 | NURSING ---
pt/spouse states that at home pt uses 3L at rest and then they bump up his oxygen to 6L with ambulation/post ambulation at home, states they have a finger pulse oximeter to check his spo2 at home.
--- NOTE | 2024-02-22 16:32 | DCINST_ITS ---
Discharge Instructions Diet Discharge Diet: No restrictions DC O2, CPAP, BIPAP needs RN Home O2 Qualification: Home O2 Qualification: Is the patient on home oxygen Yes 02/22/24 11:58 Home O2 Qualification: AT REST 1-Pulse Ox at rest 88 02/22/24 11:58 1- Oxygen flow rate at rest 0 02/22/24 11:58 2-Pulse Ox at rest 96 02/22/24 11:58 2- Oxygen flow rate at rest 3 02/22/24 11:58 Home O2 Qualification: WITH AMBULATION 1- Pulse Ox with ambulation 85 02/22/24 11:58 1- Oxygen Flow Rate with 4 02/22/24 11:58 ambulation 2- Pulse Ox with ambulation 88 02/22/24 11:58 2- Oxygen Flow Rate with 5 02/22/24 11:58 ambulation 3- Pulse Ox with ambulation 94 02/22/24 11:58 3- Oxygen Flow Rate with 6 02/22/24 11:58 ambulation Home O2 Discharge instructions: Yes Type of respiratory needs?: Oxygen Oxygen frequency: Continuous (3 L) Continuous oxygen liters per minute: 3L and With Ambulation (6L) Oxygen liters per minute during Ambulation: 6L Dressing / Incision Discharge Activity: Return to Normal Activity Weight Bearing Status: Full weight bearing Follow Up Care Test Results: Test results from this visit will be discussed in further detail at your follow- up appointment, if applicable. Discharge Plan Admission Admit Date/Time: 02/19/24 18:04 Primary Reason for Your Visit: exacerbation of COPD, hypoxia Attending Provider: Dillan Cortes Primary Care Provider: Dillan Cummins Consulting Providers: Sushila Rivers; Jacob Suazo; Dillan Cortes Instructions Patient Instructions: ED COPD Flare Discharge Orders/Prescriptions Prescriptions: New prednisone 20 mg tablet 20 mg PO BID Qty: 9 0RF Rx Instructions: starting on 02/23/24: one twice a day for 3 days, then one per day for three days, then resume home dose of Prednisone 10 mg daily thereafter Continued fluticasone propion-salmeterol [Advair HFA] 230-21 mcg/actuation HFA aerosol inhaler 2 puff inhalation BID nitroglycerin 0.4 MG tablet 0.4 mg SL Q5M PRN (Reason: Chest Pain) atorvastatin 40 mg tablet 40 mg PO QHS duloxetine 30 mg capsule,delayed release(DR/EC) 30 mg PO QPM tamsulosin 0.4 mg capsule 0.4 mg PO QPM Spiriva Respimat 2.5 mcg/actuation mist 2 puff INHALATION DAILY Rx Instructions: USES AROUND NOON ezetimibe 10 mg tablet 10 mg PO DAILY Eliquis 5 mg tablet 5 mg PO Q12H Patient Comments: TAKE 1 TABLET BY MOUTH TWICE A DAY guaifenesin [Mucinex] 600 mg tablet extended release 12hr 1,200 mg PO Q12H 7 Days Qty: 0 0RF furosemide [Lasix] 20 mg tablet 20 mg PO DAILY PRN (Reason: weight gain) Qty: 30 0RF lorazepam 1 mg tablet 1 mg PO TID albuterol sulfate 90 mcg/actuation HFA aerosol inhaler 2 puff inhalation Q4H PRN PRN (Reason: wheezing) aspirin [Enteric Coated Aspirin] 81 mg tablet,delayed release (DR/EC) 81 mg PO DAILY metoprolol tartrate 25 mg Tablet 12.5 mg PO BID oxycodone 5 mg tablet 5 mg PO Q4H PRN fluorometholone 0.1 % drops,suspension 1 drp ophthalmic (eye) BID Discontinued fluconazole 100 mg tablet 100 mg PO DAILY Qty: 14 0RF prednisone 10 mg tablet See Rx Instructions .ROUTE .COMPLEX 9 Days Qty: 18 0RF Rx Instructions: 10 mg orally ;3 tablets daily x 3 days, 2 tablets daily x 3 days, 1 tablet daily x 3 days, then stop. Referrals / Follow Up: Dillan Cummins MD [Primary Care Provider] - In 1 Week Care Physician,No Primary [Non-Staff] - Disposition Disposition (needs filled in before D/C Order can be placed): Home, Self Care
--- NOTE | 2024-02-22 16:45 | PCM.DC.SUM ---
Providers Date of Admission: 02/19/24 Date of Discharge: 02/22/24 Primary Care Physician: Dr. Dillan Cummins MD Reason For Visit: COPD EXACERBATION Diagnosis Discharge Diagnosis (1) COPD exacerbation: Status: Chronic Code(s): J44.1 - Chronic obstructive pulmonary disease with (acute) exacerbation (2) Hypoxia: Status: Acute Code(s): R09.02 - Hypoxemia Plan 1. Acute on chronic hypoxic respiratory failure secondary to acute exacerbation of COPD #2 acute exacerbation of COPD #3 coronary artery disease #4 essential hypertension Medications at Discharge Home Medications nitroglycerin 0.4 mg sublingual tablet 0.4 mg sublingual Q5M PRN Chest Pain 12/29/14 fluticasone propionate 230 mcg-salmeterol 21 mcg/actuation HFA inhaler (Advair HFA) 2 puff inhalation BID breathing 08/07/22 atorvastatin 40 mg tablet 40 mg PO QHS cholesterol 03/25/23 duloxetine 30 mg capsule,delayed release 30 mg PO QPM DEPRESSION 03/25/23 tamsulosin 0.4 mg capsule 0.4 mg PO QPM BLADDER/ PROSTATE 03/25/23 tiotropium bromide 2.5 mcg/actuation mist for inhalation (Spiriva Respimat) 2 puff inhalation DAILY copd 03/25/23 ezetimibe 10 mg tablet 10 mg PO DAILY cholesterol 09/28/23 apixaban 5 mg tablet (Eliquis) 5 mg PO Q12H blood thinner 10/05/23 furosemide 20 mg tablet (Lasix) 20 mg PO DAILY PRN weight gain #30 tabs 10/17/23 guaifenesin 600 mg tablet, extended release 12 hr (Mucinex) 1,200 mg (2 x 600 mg) PO Q12H cough 7 days #0 tabs 10/17/23 albuterol sulfate 90 mcg/actuation aerosol inhaler 2 puff inhalation Q4H PRN PRN wheezing 02/19/24 aspirin 81 mg tablet,delayed release (Enteric Coated Aspirin) 81 mg PO DAILY heart 02/19/24 lorazepam 1 mg tablet 1 mg PO TID anxiety 02/19/24 metoprolol tartrate 25 mg tablet 12.5 mg PO BID heart 02/20/24 fluorometholone 0.1 % eye drops,suspension 1 drp ophthalmic (eye) BID dry eye 02/21/24 oxycodone 5 mg tablet 5 mg PO Q4H PRN chronic pain 02/21/24 prednisone 20 mg tablet 20 mg PO BID #9 tabs 02/22/24 Hospital Course Operations None Procedures None Summary of Care Provided Minutes Spent on Discharge: 31 Hospital Course: This 83-year-old white male was seen in the emergency room at [facility] with a chief complaint of increased shortness of breath over the past several days. He also complained of increased sputum production. Patient is chronically on 3 L of oxygen at all times at home, initially was placed on a nonrebreather at 15 L upon admission to the emergency room and his oxygen level improved to 100% pulse ox. Patient was then able to be titrated down to 5 L.. CBC was obtained and showed a leukocytosis of 11,000, hemoglobin was 11.4, EKG showed a sinus rhythm without evidence of ischemia. Chest x-ray was performed and showed diffuse bilateral scarring worse in the right hemithorax. Patient was ambulated in the emergency department and he became hypoxic on 5 L, tachypneic, and tachycardic. It was felt that he would benefit from admission, patient was admitted to [place] [address] and placed on IV Solu-Medrol and aggressive aerosol treatments. Patient improved over the next several days. On 02/22/2024, patient was seen and examined: On examination he appeared older than his stated age and frail. Vital signs as documented. Skin warm and dry and without overt rashes. Neck without JVD, neck was supple, trachea midline, thyroid was normal. Lungs clear bilaterally, decreased breath sounds were noted bilaterally. Heart exam notable for regular rhythm, normal sounds and absence of murmurs, rubs or gallops. Abdomen unremarkable and without evidence of organomegaly, masses, or abdominal aortic enlargement. Bowel sounds are present, abdomen is not distended. Extremities nonedematous, no cyanosis was noted, no clubbing was noted. Neuro: Cranial nerves II through XII are grossly intact, no focal motor deficits were noted, sensation to light touch and pinprick intact, motor exam 5/5 throughout. Psych: Patient is alert and oriented x3, he does not appear anxious or depressed, he does not appear agitated. Patient appears stable for discharge home on 02/22/2024, he was to resume his home oxygen settings which were 3 L at rest and 6 L while ambulating Weight / BMI Weight Weight: 76.2 kg Body Mass Index (BMI) 23.5 ABG / Lab / Microbiology Data 02/22/24 07:15 02/22/24 07:15 Laboratory: Laboratory Results - last 24 hr 02/22/24 07:15: WBC 11.2 H, RBC 4.06 L, Hgb 10.3 L, Hct 35.8 L, MCV 88.2, MCH 25.4 L, MCHC 28.8 L, RDW Std Deviation 52.1 H, RDW Coeff of Estelita 16.0 H, Plt Count 381, MPV 9.0, Sodium 141, Potassium 4.1, Chloride 108 H, Carbon Dioxide 29.0, Anion Gap 4 L, BUN 27 H, Creatinine 0.61 L, Estim Creat Clear Calc 77.13, Est GFR (MDRD) Af Amer 162, Est GFR (MDRD) Non-Af 134, BUN/Creatinine Ratio 44.0 H, Glucose 159 H, Calcium 8.9 Microbiology: Microbiology 02/19/24 18:57 Mucosa - Nose Respiratory Panel (PCR) - Final 02/19/24 18:57 Mucosa - Nose SARS-CoV-2, Influenza & RSV (PCR) - Final D/C Instructions Discharge Diet: No restrictions Weight Bearing Status: Full weight bearing DC O2, CPAP, BIPAP Needs RN Home O2 Qualification: Home O2 Qualification: Is the patient on home oxygen Yes 02/22/24 11:58 Home O2 Qualification: AT REST 1-Pulse Ox at rest 88 02/22/24 11:58 1- Oxygen flow rate at rest 0 02/22/24 11:58 2-Pulse Ox at rest 96 02/22/24 11:58 2- Oxygen flow rate at rest 3 02/22/24 11:58 Home O2 Qualification: WITH AMBULATION 1- Pulse Ox with ambulation 85 02/22/24 11:58 1- Oxygen Flow Rate with 4 02/22/24 11:58 ambulation 2- Pulse Ox with ambulation 88 02/22/24 11:58 2- Oxygen Flow Rate with 5 02/22/24 11:58 ambulation 3- Pulse Ox with ambulation 94 02/22/24 11:58 3- Oxygen Flow Rate with 6 02/22/24 11:58 ambulation Home O2 Discharge instructions: Yes Type of respiratory needs?: Oxygen Oxygen frequency: Continuous (3 L) Continuous oxygen liters per minute: 3L and With Ambulation (6L) Oxygen liters per minute during Ambulation: 6L DC home with Oxygen: Yes Home O2 MD Review: I have reviewed the oxygen testing, and the patient qualifies for home oxygen equipment and portability. The patient is mobile in the home and the community. Meaningful Use Info Meaningful Use Meaningful Use Diagnoses (Choose all that apply): None applicable Ischemic Stroke Statin Dosing Therapy Reference: STATIN DOSE THERAPY REFERENCE: * Patients > 75 years receive moderate or high dose statin therapy. * Patients 75 years or YOUNGER should receive HIGH intensity statin dose unless contraindicated. You will be required to document reason for non-treatment if statin daily dose does not meet guidelines. HIGH DOSE STATIN THERAPY DAILY Atorvastatin > than or = to 40 mg Rosuvastatin > than or = to 20 mg Amlodipine + Atorvastatin > than or = to 2.5/40 mg Ezetimibe + Simvastatin 10/80 mg Simvastatin 80mg Discharge Plan Admission Admit Date/Time: 02/19/24 18:04 Primary Reason for Your Visit: exacerbation of COPD, hypoxia Attending Provider: Dillan Cortes Primary Care Provider: Dillan Cummins Consulting Providers: Sushila Rivers; Jacob Suazo; Dillan Cortes Instructions Patient Instructions: ED COPD Flare Discharge Orders/Prescriptions Prescriptions: New prednisone 20 mg tablet 20 mg PO BID Qty: 9 0RF Rx Instructions: starting on 02/23/24: one twice a day for 3 days, then one per day for three days, then resume home dose of Prednisone 10 mg daily thereafter Continued fluticasone propion-salmeterol [Advair HFA] 230-21 mcg/actuation HFA aerosol inhaler 2 puff inhalation BID nitroglycerin 0.4 MG tablet 0.4 mg SL Q5M PRN (Reason: Chest Pain) atorvastatin 40 mg tablet 40 mg PO QHS duloxetine 30 mg capsule,delayed release(DR/EC) 30 mg PO QPM tamsulosin 0.4 mg capsule 0.4 mg PO QPM Spiriva Respimat 2.5 mcg/actuation mist 2 puff INHALATION DAILY Rx Instructions: USES AROUND NOON ezetimibe 10 mg tablet 10 mg PO DAILY Eliquis 5 mg tablet 5 mg PO Q12H Patient Comments: TAKE 1 TABLET BY MOUTH TWICE A DAY guaifenesin [Mucinex] 600 mg tablet extended release 12hr 1,200 mg PO Q12H 7 Days Qty: 0 0RF furosemide [Lasix] 20 mg tablet 20 mg PO DAILY PRN (Reason: weight gain) Qty: 30 0RF lorazepam 1 mg tablet 1 mg PO TID albuterol sulfate 90 mcg/actuation HFA aerosol inhaler 2 puff inhalation Q4H PRN PRN (Reason: wheezing) aspirin [Enteric Coated Aspirin] 81 mg tablet,delayed release (DR/EC) 81 mg PO DAILY metoprolol tartrate 25 mg Tablet 12.5 mg PO BID oxycodone 5 mg tablet 5 mg PO Q4H PRN fluorometholone 0.1 % drops,suspension 1 drp ophthalmic (eye) BID Discontinued fluconazole 100 mg tablet 100 mg PO DAILY Qty: 14 0RF prednisone 10 mg tablet See Rx Instructions .ROUTE .COMPLEX 9 Days Qty: 18 0RF Rx Instructions: 10 mg orally ;3 tablets daily x 3 days, 2 tablets daily x 3 days, 1 tablet daily x 3 days, then stop. Referrals / Follow Up: Dillan Cummins MD [Primary Care Provider] - In 1 Week Care Physician,No Primary [Non-Staff] - Disposition Disposition (needs filled in before D/C Order can be placed): Home, Self Care Charges/Coding Visit Charges Inpatient E&M: 05591 Disch Hosp >30min
--- NOTE | 2024-02-23 10:28 | CASEMGMT ---
Spoke with Twila at [facility], she is aware pt dc'd last evening. They will plan to see pt on . Pt did not require a change of oxygen rx.
== END 2024-02-22 17:21 | disposition home or self-care (01) | DRG 193 ==
LOC: ED 18:33 → MS3 18:35
PROVIDERS: Hospitalist; Physician Assistant; Admitting Provider Family Medicine; Emergency Provider Emergency Medicine; PCP Family Medicine; Referring Provider Family Medicine; Visit Provider Internal Medicine
DX: J18.9 Pneumonia, unspecified organism (principal); J96.21 Acute and chronic respiratory failure with hypoxia; J44.1 Chronic obstructive pulmonary disease with (acute) exacerbation; J44.0 Chronic obstructive pulmonary disease with (acute) lower respiratory infection; N13.8 Other obstructive and reflux uropathy; Z66 Do not resuscitate; I10 Essential (primary) hypertension; F32.A Depression, unspecified; D64.9 Anemia, unspecified; I25.10 Atherosclerotic heart disease of native coronary artery without angina pectoris; E78.5 Hyperlipidemia, unspecified; D72.810 Lymphocytopenia; F41.9 Anxiety disorder, unspecified; Z79.01 Long term (current) use of anticoagulants; Z79.51 Long term (current) use of inhaled steroids; Z86.16 Personal history of COVID-19; Z87.891 Personal history of nicotine dependence; N40.1 Benign prostatic hyperplasia with lower urinary tract symptoms; Z95.1 Presence of aortocoronary bypass graft; Z95.5 Presence of coronary angioplasty implant and graft; Z85.118 Personal history of other malignant neoplasm of bronchus and lung; Z85.46 Personal history of malignant neoplasm of prostate; Z92.3 Personal history of irradiation; Z92.21 Personal history of antineoplastic chemotherapy; Z86.718 Personal history of other venous thrombosis and embolism; Z79.82 Long term (current) use of aspirin
CPT/HCPCS: 36415; 71046; 80048; 80053; 83735; 84145; 84484; 85025; 85027; 87631; 87633; 93005; 94640; 94668; 94762; 97116; 97162; 97166; 97535; 99284; A4216

== ENCOUNTER 2024-03-30 13:51 | Outpatient (RCR) | payer MEDICARE, BC, SELFPAY ==
[2024-03-30 14:16] VITALS: BP 141/71; PULSE 78; RESP 20; TEMP 36.3; BMI 22.4
--- NOTE | 2024-03-30 17:13 | PCM.WC.HP ---
History of Present Illness Date of Service: 03/30/24 Chief Complaint: Left medial ankle ulcer History of Wound: Patient is a very pleasant 83 year old male with a left medial ankle ulcer that he has been seeing environmental planner, Dr. Drew. Patient has a significant history for COPD that he sees Palliative care to help manage. He is on home O2. He also has a history of Prostate CA, Squamous carcinoma of left lung, HTN, anxiety and depression, AAA without rupture, CAD, coronary artery stent placement (multiple), CABG x 3, former smoker, PAD, PBH, and pulmonary embolism- on anticoagulants, and hyperlipidemia. He has had arterial studies in the past and had some vascular procedures (by Dr. Vigil) to his left leg. He denies hx of diabetes. His providers are all with [facility]. He has had this left medial ankle ulcer for 3 months. He has been placing Santyl covered with Bulger SAP. There has not been much improvement to this area. He states that he was referred to see us by [facility] and that Dr. Drew also suggested he get a second opinion. He is on a new medication that his states is an antibiotic but they are unsure of the name. He denies fever, chills, nausea or vomiting. He comes in today for further evaluation and treatment. Progress of Wound: Left medial ankle ulcer that is small but has some depth. Due to his significant PAD, I am hesitant to do any type of debridement. He does have a left post tib pulse. Toes with capillary refill < 3 seconds. [facility] Medical History (Reviewed 04/03/24 @ 22:15 by Rosa Garcia [employer]) COPD exacerbation Angina at rest Pulmonary embolus COVID Fecal occult blood test positive Abnormal chest CT COPD with acute exacerbation Squamous cell carcinoma of left lung Lung mass Depression Myocardial infarct Coronary artery disease Pulmonary neoplasm Wears glasses Wears dentures Cancer Anxiety Abrasion History of steroid therapy Prostate disease High cholesterol Injury of back Syncope History of weight loss Former smoker COPD (chronic obstructive pulmonary disease) On home oxygen therapy Shortness of breath on exertion Chronic cough History of stress test Cardiology follow-up encounter Chest pain No pertinent family history 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 Nocturnal hypoxemia Chronic hypoxemic respiratory failure Bronchiectasis Prostate CA CAD (coronary artery disease) HLD (hyperlipidemia) Benign essential HTN Home Medications ?Medication ?Instructions ?Recorded ?Last Taken ?Type nitroglycerin 0.4 mg sublingual 0.4 mg sublingual Q5M PRN Chest 12/29/14 1 Week Ago History tablet Pain ~07/02/20 fluticasone propionate 230 2 puff inhalation BID breathing 08/07/22 03/25/23 History mcg-salmeterol 21 mcg/actuation HFA inhaler (Advair HFA) atorvastatin 40 mg tablet 40 mg PO QHS cholesterol 03/25/23 10/04/23 History duloxetine 30 mg capsule,delayed 30 mg PO QPM DEPRESSION 03/25/23 10/04/23 History release tamsulosin 0.4 mg capsule 0.4 mg PO QPM BLADDER/ PROSTATE 03/25/23 10/04/23 History tiotropium bromide 2.5 2 puff inhalation DAILY copd 03/25/23 10/05/23 History mcg/actuation mist for inhalation (Spiriva Respimat) ezetimibe 10 mg tablet 10 mg PO DAILY cholesterol 09/28/23 10/05/23 History apixaban 5 mg tablet (Eliquis) 5 mg PO Q12H blood thinner 10/05/23 10/05/23 History furosemide 20 mg tablet (Lasix) 20 mg PO DAILY PRN weight gain #30 10/17/23 Unknown Rx tabs guaifenesin 600 mg tablet, 1,200 mg (2 x 600 mg) PO Q12H 10/17/23 10/05/23 Rx extended release 12 hr (Mucinex) cough 7 days #0 tabs albuterol sulfate 90 mcg/actuation 2 puff inhalation Q4H PRN PRN 02/19/24 Unknown History aerosol inhaler wheezing aspirin 81 mg tablet,delayed 81 mg PO DAILY heart 02/19/24 Unknown History release (Enteric Coated Aspirin) lorazepam 1 mg tablet 1 mg PO TID anxiety 02/19/24 Unknown History metoprolol tartrate 25 mg tablet 12.5 mg PO BID heart 02/20/24 Unknown History fluorometholone 0.1 % eye 1 drp ophthalmic (eye) BID dry eye 02/21/24 Unknown History drops,suspension oxycodone 5 mg tablet 5 mg PO Q4H PRN chronic pain 02/21/24 Unknown History prednisone 20 mg tablet 20 mg PO BID #9 tabs 02/22/24 Unknown Rx ondansetron 4 mg disintegrating 4 mg PO DAILY PRN nausea and 03/30/24 Unknown History tablet vomiting roflumilast 500 mcg tablet 500 mcg PO DAILY 03/30/24 Unknown History Allergy/AdvReac Type Severity Reaction Status Date / Time isosorbide (From Imdur) Allergy Other-patient Verified 03/30/24 14:39 blacks out Family History (Reviewed 04/03/24 @ 22:15 by Rosa Garcia [employer], [employer]) Mother Cancer Father Heart disease COPD (chronic obstructive pulmonary disease) Surgical History (Reviewed 04/03/24 @ 22:15 by Rosa Garcia [employer], [employer]) Hx of CABG Hx of heart artery stent Hx of transurethral resection of prostate Hx of pneumonectomy Hx of CABG No pertinent past surgical history Social History (Reviewed 04/03/24 @ 22:15 by Rosa Garcia [employer], [employer]) household members: spouse Smoking Status: Former smoker Tobacco: How many years used: 45 Electronic Cigarette Use: not used how long ago did patient quit smokin, second hand exposure: Yes alcohol intake: never substance use type: does not use ROS Constitutional Constitutional: Denies chills or fever(s) Eyes Eyes: Reports none ENT HEENT: Reports none Cardiovascular Cardiovascular: Reports dyspnea; Denies chest pain Respiratory/Chest Respiratory/Chest: Reports dyspnea and portable oxygen @ home Gastrointestinal Gastrointestinal: Reports none Genitourinary Genitourinary: Reports as per HPI Musculoskeletal Musculoskeletal: Reports as per HPI Integumentary Integumentary: Reports as per HPI and skin ulcer Neurologic Neurologic: Reports none Psychiatric Psychiatric: Reports as per HPI, anxiety and depression Endocrine Endocrinology: Reports none Hematologic/Lymphatic Hematologic/Lymphatic: Reports as per HPI Allergic/Immunologic Allergic/Immunologic: Reports none Vital Signs Vital Signs Vital Signs: 03/30/24 14:16 Temperature 97.3 F L Temperature Source Temporal Pulse Rate 78 Respiratory Rate 20 H Blood Pressure 141/71 H Blood Pressure Mean 94 Blood Pressure Source Monitor Blood Pressure Position Sitting Blood Pressure Location Left Arm Oxygen Delivery Method Nasal Cannula Oxygen Flow Rate (L/min) 4 Weight Weight: 165 lb Body Mass Index (BMI) 22.4 Physical Exam Const alert and oriented x3 General Appearance: cooperative and well kempt HEENT normocephalic Head and Scalp: atraumatic Eyes General Eye: normal appearance of both eyes Neck full ROM Lymph Lymphatic: no lymphedema noted Resp normal air movement and clear to auscultation bilaterally Resp Narrative: on oxygen Effort and Inspection: able to speak in complete sentences Cardio regular rate and regular rhythm GI soft to palpation and non-tender Back/Spine normal ROM Extremity full ROM and normal capillary refill Peripheral Pulses: Yes pulses 2+ throughout Skin Wound Narrative: Small left medial ankle ulcer that has some depth. No erythema. Bell wound clear. Neuro oriented x3 and CN's II-XII intact bilaterally Psych mental status grossly normal, thought process normal and cooperative Appearance: grossly normal and well kempt Attitude: calm Activity / Motor Behavior: appropriate eye contact Debridement Note Debridement Note No debridement was completed: No debridement was completed today Post-Debridement Measurements and Additional Note: Post-Debridement Measurements/Treatment - Nurse 1 - General Ulcer Assessment Start: 03/30/24 14:16 Freq: Status: Active Protocol: MILENA Activity Type Activity Date Activity User E-sign Co-sign Detail Recorded Client Recorded Date Recorded By Document 03/30/24 14:16 [facility] [id number] 03/30/24 14:36 [facility] 03/30/24 14:16 - Today's Visit Information Type of service Initial Visit Arrival Mode Wheelchair Transfer Assistance Other Transfer Assist (Other) Patient Identification Verified (Name & Yes ) Patient Requires Transmission-Based No Precautions Height and Weight Height 6 ft Weight 165 lb Weight in Pounds 165.0 lbs Weight Measurement Method Stated by Patient Body Mass Index (BMI) 22.4 BMI Classification Normal BSA - Donte 1.96 Vital Signs Temperature (97.8 F-99.1 F) 97.3 F L Temperature Source Temporal Pulse Rate (60-100) 78 Pulse Location Monitor Respiratory Rate (12-18) 20 H Respiratory rate source Observation Oxygen Delivery Method Nasal Cannula O2 L/MIN 4 Blood Pressure (90/60-120/80) 141/71 H Blood Pressure Mean 94 Source Monitor Position Sitting Blood Pressure Location Left Arm History Since Last Visit- (Skip if this is Patient's initial visit) Left Footwear Regular Shoe Right Footwear Regular Shoe Pain Scale: 0-10 Numeric Is Patient Pain Free? Yes Lower Extremity Assessment/ Foot Assessment/ Toe Nail Assessment Right -Lower Extremity Comment (If N/A Above ARTERIAL ) STUDIES AT [facility]. WILL REQUEST RECORDS. FOLLOWS W/ DR VIGIL. Left -Lower Extremity Comment (If N/A Above ARTERIAL ) STUDIES AT [facility]. WILL REQUEST RECORDS Communication Assessment Preferred language Citizen Of [place] Able to Read Yes Able to Write Yes Communication Tools Letter Board Right Hearing Abillity Normal Left Hearing Abillity Normal Visual Assistive Devices Glasses Teaching Assessment Preferences Verbal,Written, Audio/Visual, Demonstration Barriers to Learning None Readiness To Learn Excellent Willingness to Engage in Self Management High Activies Readiness to Engage in Self Management High Activities Anxiety Level Calm Cooperation Cooperative Perception Coherent Interest in Health Problem Asks Questions Education Importance Acknowledges Need Does Patient Smoke tobacco or other No substances Smoking Status Former smoker Is Patient Diabetic No Functional Assessment Recent Decline in Ability to Perform Denies Any Declines Culture/Nondenominational/Production [place] Cultural/Nondenominational Needs that may affect No Treatment Plan Teaching: Wound Center *Welcome to the Wound Center -Person Taught Patient, Significant Other -Teaching Method Discussion -Response to teaching Verbalize Understanding WC - Nurse 1 - General Ulcer Measurement Start: 03/30/24 14:16 Freq: Status: Active Protocol: Activity Type Activity Date Activity User E-sign Co-sign Detail Recorded Client Recorded Date Recorded By Document 03/30/24 14:16 [facility] [id number] 03/30/24 14:36 [facility] 03/30/24 14:16 Wound Center Nurse 1 #1- L MEDIAL ANKLE -Combined with other wound No -Current Size (cm) - Length 0.6 -Current Size (cm) - Width 1.1 -Current Size (cm) - Depth 0.3 -Total Square Cm 0.66 -Tunneling No -Undermining/Tunneling No -Circular Undermining No -Exudate Amt Medium -Exudate Type Serosanguineous -Wound Margin Distinct, Outline Attached -Granulation Amt None Present (0 %) -Slough/Fibrin Yes -Necrosis Amt Large (67-100%) -Necrotic Tissue Type Adherent Slough -Texture (Bell-wound Skin Appearance) Assessed, Localized Edema -Moisture (Bell-wound Skin Appearance) Assessed -Color (Bell-wound Skin Appearance) Assessed, Erythema -Temperature (Bell-wound Skin No Abnormality Appearance) (Pt Warm) -Tenderness on Palpation (Bell-wound No Skin Appearance) -Ulcer Cleansing Rinsed/ Irrigated with Saline -Foul Odor after Cleansing No -Anesthetic Used 5% Lidocaine Gel Lower Limb Edema Present Yes Right Calf (cm) 30 Right Ankle (cm) 20.5 Left Calf (cm) 28.5 Left Ankle (cm) 20.6 - Nurse 2 - General Ulcer CM Notes Start: 03/30/24 14:16 Freq: Status: Active Protocol: Activity Type Activity Date Activity User E-sign Co-sign Detail Recorded Client Recorded Date Recorded By Document 03/30/24 14:53 GM [id number] 03/30/24 15:00 03/30/24 14:53 Wound Center Nurse 2 #1- L MEDIAL ANKLE -Time 14:54 -Correct Patient Yes -Correct Side, Site, Position Yes -Correct Procedure No -Procedure Performed No -Post Debridement (cm) - Length 0.6 -Post Debridement (cm) - Width 0.8 -Post Debridement (cm) - Depth 0.1 -Total Square (Post) (cm) 0.48 -Circular Undermining Yes -Wound/Ulcer Outcome Not Healed -Foul Odor after Cleansing No -Bioengineered Tissue No -Bleeding Controlled with NA Pain Scale: 0-10 Numeric Is Patient Pain Free? Yes - Nurse 3 - General Ulcer D/C NN Start: 03/30/24 14:16 Freq: Status: Active Protocol: Activity Type Activity Date Activity User E-sign Co-sign Detail Recorded Client Recorded Date Recorded By Document 03/30/24 15:19 DL [id number] 03/30/24 15:21 DL 03/30/24 15:19 Wound Care Center Nurse 3 #1- L MEDIAL ANKLE -Ulcer Cleansing Rinsed/ Irrigated with Saline -Primary Dressing Applied Silicone Border Foam 4x4 -Other Dressing HYDROGEL -Silicone Border Foam 4x4 1 Treatment Response Procedure Tolerated Well Pain Scale: 0-10 Numeric Is Patient Pain Free? Yes - Visit Discharge Discharge Condition Stable Ambulatory Status Ambulatory, Wheelchair Transportation Private Auto Facility Type Home Health Orders Sent Yes Charges/Coding Visit Charges Office Visits / Consults: 55402 OV L4 Est 30min Assessment/Plan Assessment/Plan (1) Chronic ulcer of left ankle: CODE(S): L97.329 - Non-pressure chronic ulcer of left ankle with unspecified severity (2) History of peripheral arterial disease: CODE(S): Z86.79 - Personal history of other diseases of the circulatory system (3) History of lung cancer: CODE(S): Z85.118 - Personal history of other malignant neoplasm of bronchus and lung (4) COPD (chronic obstructive pulmonary disease): CODE(S): J44.9 - Chronic obstructive pulmonary disease, unspecified PLAN: Plan Patient evaluated at the wound healing center today. Due to his significant history, especially with his COPD and peripheral vascular disease, I would like to treat him conservatively. Wound care - Continue Santyl daily covered with gauze or Bulger SAP. Wash with soap and water at the time of the dressing change. Continue medications that were prescribed by other providers. Will follow up in 2 weeks. Greater than 35 mintues spent with evaulating patient, establishing plan of care, reviewing records, and documenting.
--- NOTE | 2024-03-31 09:03 | WC ---
PHOTO 03/30/24 LEFT TELLO ANKLE
== END 2024-04-01 23:59 | disposition home or self-care (01) ==
LOC: WC 13:51
PROVIDERS: PCP Family Medicine; Referring Provider Podiatrist Foot & Ankle Surgery; Visit Provider Nurse Practitioner Family
DX: L97.329 Non-pressure chronic ulcer of left ankle with unspecified severity (principal); J44.9 Chronic obstructive pulmonary disease, unspecified; I25.10 Atherosclerotic heart disease of native coronary artery without angina pectoris; Z95.5 Presence of coronary angioplasty implant and graft; Z79.51 Long term (current) use of inhaled steroids; I73.9 Peripheral vascular disease, unspecified; E78.5 Hyperlipidemia, unspecified; Z87.891 Personal history of nicotine dependence; Z51.5 Encounter for palliative care; Z79.82 Long term (current) use of aspirin; R60.0 Localized edema; I10 Essential (primary) hypertension; F41.9 Anxiety disorder, unspecified; Z85.118 Personal history of other malignant neoplasm of bronchus and lung; Z86.79 Personal history of other diseases of the circulatory system; R06.00 Dyspnea, unspecified; Z95.1 Presence of aortocoronary bypass graft; Z99.81 Dependence on supplemental oxygen; Z86.16 Personal history of COVID-19; Z86.711 Personal history of pulmonary embolism; I25.2 Old myocardial infarction; Z85.46 Personal history of malignant neoplasm of prostate; Z79.01 Long term (current) use of anticoagulants
CPT/HCPCS: 99213; G0463

== ENCOUNTER → 2024-03-30 | Outpatient (CLI) | payer MEDICARE, BC, SELFPAY ==
[2024-03-30 13:24] LABS: Anion Gap 7 (5-15); BUN 22 mg/dL (7-18); BUN/Creat Ratio 28.3 RATIO (10-20); Calcium,Total 9.2 mg/dL (8.5-10.1); Chloride 107 mmol/L (98-107); Creatinine, Serum 0.78 mg/dL (0.70-1.30); EST Glomerular Filtration Rate 102 mL/min (>60); Est Glom Filt Rate - Afr Amer 123 mL/min (>60); Glucose 112 mg/dL (74-106); Sodium Level 143 mmol/L (136-145)
== END | disposition home or self-care (01) ==
LOC: LABSPEC 12:30
PROVIDERS: PCP Family Medicine; Referring Provider Family Medicine; Visit Provider Family Medicine
DX: L89.522 Pressure ulcer of left ankle, stage 2 (principal); J96.20 Acute and chronic respiratory failure, unspecified whether with hypoxia or hypercapnia; J44.1 Chronic obstructive pulmonary disease with (acute) exacerbation; K27.4 Chronic or unspecified peptic ulcer, site unspecified, with hemorrhage
CPT/HCPCS: 80048

== ENCOUNTER 2024-04-27 14:00 | Outpatient (RCR) | payer MEDICARE, BC, SELFPAY ==
[2024-04-02 02:44] VITALS: BP 141/71; PULSE 78; RESP 20; TEMP 36.3; BMI 22.4
[2024-04-13 14:21] VITALS: BP 133/55; PULSE 103; RESP 22; TEMP 36.4; BMI 22.4
--- NOTE | 2024-04-13 15:30 | PN.PCM_ITS ---
History of Present Illness Date of Service: 04/13/24 Chief Complaint: Left medial ankle ulcer History of Wound: Patient is a very pleasant 83 year old male with a left medial ankle ulcer that he has been seeing hardwood floor finisher, Dr. Drew. Patient has a significant history for COPD that he sees Palliative care to help manage. He is on home O2. He also has a history of Prostate CA, Squamous carcinoma of left lung, HTN, anxiety and depression, AAA without rupture, CAD, coronary artery stent placement (multiple), CABG x 3, former smoker, PAD, PBH, and pulmonary embolism- on anticoagulants, and hyperlipidemia. He has had arterial studies in the past and had some vascular procedures (by Dr. Freeman) to his left leg. He denies hx of diabetes. His providers are all with [facility]. He has had this left medial ankle ulcer for 3 months. He has been placing Santyl covered with [employer] SAP. There has not been much improvement to this area. He states that he was referred to see us by [facility] and that Dr. Drew also suggested he get a second opinion. He is on a new medication that his states is an antibiotic but they are unsure of the name. He denies fever, chills, nausea or vomiting. He comes in today for further evaluation and treatment. Progress of Wound: Left medial ankle ulcer small but has some depth, it is stable. He has a left post tib pulse. Toes with capillary refill < 3 seconds. Objective Data Objective Data Vital Signs: Vital Signs Temp Pulse Resp BP O2 Flow Rate 97.5 F L 103 H 22 H 133/55 H 5 04/13/24 14:21 04/13/24 14:21 04/13/24 14:21 04/13/24 14:21 04/13/24 14:21 Oxygen Flow Rate (L/min) 5 Weight: 165 lb Body Mass Index (BMI) 22.4 Charges/Coding Procedures Integumentary [id number]: [id number] Nel subq tissue 20 sq cm/< Debridement Note Debridement Note Wound debrided: Medial ankle ulcer Laterality: Left Type of Debridement: Excisional debridement Anesthesia Used: 5% Lidocaine Gel Depth: Down to and including healthy tissue and in the subcutaneous layer Percentage of wound debrided: 100 Instrument Used: 3mm curette Tissue Removed: Non viable tissue and slough from around the edges of the ulcer opening Severity: Fat Layer Exposed Amount of bleeding with debridement: None Bleeding Controlled with: Pressure Patient tolerated procedure: Patient tolerated procedure well Post-Debridement Measurements and Additional Note: Post-Debridement Measurements/Treatment - Nurse 1 - General Ulcer Assessment Start: 04/13/24 14:18 Freq: Status: Active Protocol: MILENA Activity Type Activity Date Activity User E-sign Co-sign Detail Recorded Client Recorded Date Recorded By Document 04/13/24 14:21 DL [id number] 04/13/24 14:28 DL 04/13/24 14:21 WC - Today's Visit Information Type of service Follow-up Visit (Physician/MACHINE BRUSHER ) Arrival Mode Ambulatory Transfer Assistance None Patient Identification Verified (Name & Yes ) Patient Requires Transmission-Based No Precautions Height and Weight Body Mass Index (BMI) 22.4 BMI Classification Normal Vital Signs Temperature (97.8 F-99.1 F) 97.5 F L Temperature Source Temporal Pulse Rate (60-100) 103 H Pulse Location Monitor Respiratory Rate (12-18) 22 H O2 L/MIN (L/min) 5 Blood Pressure (90/60-120/80) 133/55 H Blood Pressure Mean (mm Hg) 81 Source Monitor History Since Last Visit- (Skip if this is Patient's initial visit) Have you changed medications since your No last visit? Any new allergies or adverse reactions No Had a fall/change in ADL's that may No increase risk of falls Signs or symptoms of abuse and/or No neglect since last visit Have you been in the hospital since your No last visit? Has dressing in place as prescribed Yes Has compression in place as prescribed N/A Has offloadiing in place as prescribed N/A Pain Scale: 0-10 Numeric Is Patient Pain Free? Yes - Nurse 1 - General Ulcer Measurement Start: 04/13/24 14:18 Freq: Status: Active Protocol: Activity Type Activity Date Activity User E-sign Co-sign Detail Recorded Client Recorded Date Recorded By Document 04/13/24 14:21 DL [id number] 04/13/24 14:28 DL 04/13/24 14:21 Wound Center Nurse 1 #1- L MEDIAL ANKLE -Current Size (cm) - Length 0.7 -Current Size (cm) - Width 0.7 -Current Size (cm) - Depth 0.3 -Total Square Cm 0.49 -Exudate Amt Medium -Exudate Type Serosanguineous -Wound Margin Distinct, Outline Attached -Granulation Amt None Present (0 %) -Necrosis Amt Large (67-100%) -Necrotic Tissue Type Adherent Slough -Structure Exposed N/A -Texture (Bell-wound Skin Appearance) Scarring -Moisture (Bell-wound Skin Appearance) No Abnormality -Color (Bell-wound Skin Appearance) Erythema -Temperature (Bell-wound Skin No Abnormality Appearance) (Pt Warm) -Ulcer Cleansing Rinsed/ Irrigated with Saline -Foul Odor after Cleansing No -Anesthetic Used 5% Lidocaine Gel WC - Nurse 2 - General Ulcer CM Notes Start: 04/13/24 14:18 Freq: Status: Active Protocol: Activity Type Activity Date Activity User E-sign Co-sign Detail Recorded Client Recorded Date Recorded By Document 04/13/24 14:47 GM [id number] 04/13/24 14:49 GM 04/13/24 14:47 Wound Center Nurse 2 -Time 14:47 -Correct Patient Yes -Correct Side, Site, Position Yes -Correct Procedure Yes -Procedure Performed Yes -Type of Procedure Debridement -Clinical Debridement Subcutaneous -Tissue Removed Subcutaneous -Post Debridement (cm) - Length 0.7 -Post Debridement (cm) - Width 0.7 -Post Debridement (cm) - Depth 0.2 -Total Square (Post) (cm) 0.49 -Area of Debridement (cm) - Length 0.7 -Area of Debridement (cm) - Width 0.7 -Total Square (Area) (cm) 0.49 -Tunneling No -Undermining/Tunneling No -Circular Undermining No -Wound/Ulcer Outcome Not Healed -Ulcer Cleansing Rinsed/ Irrigated with Saline -Foul Odor after Cleansing No -Bioengineered Tissue No -Bleeding Controlled with Pressure -Treatment Response Procedure Tolerated Well -Debridement - Subq, 1st 20sq cm Yes Pain Scale: 0-10 Numeric Is Patient Pain Free? Yes WC - Nurse 3 - General Ulcer D/C NN Start: 04/13/24 14:18 Freq: Status: Active Protocol: Activity Type Activity Date Activity User E-sign Co-sign Detail Recorded Client Recorded Date Recorded By Document 04/13/24 15:09 DL [id number] 04/13/24 15:10 DL 04/13/24 15:09 Wound Care Center Nurse 3 #1- L MEDIAL ANKLE -Ulcer Cleansing Rinsed/ Irrigated with Saline -Foul Odor after Cleansing No -Primary Dressing Applied Silicone Border Foam 4x4 -Other Dressing santyl -Other Covering moist gauze -Silicone Border Foam 4x4 1 Treatment Response Procedure Tolerated Well Pain Scale: 0-10 Numeric Is Patient Pain Free? Yes WC - Visit Discharge Discharge Condition Stable Ambulatory Status Ambulatory, Wheelchair Transportation Private Auto Assessment/Plan Assessment/Plan (1) Chronic ulcer of left ankle: CODE(S): L97.329 - Non-pressure chronic ulcer of left ankle with unspeci fied severity (2) History of peripheral arterial disease: CODE(S): Z86.79 - Personal history of other diseases of the circulatory system (3) History of lung cancer: CODE(S): Z85.118 - Personal history of other malignant neoplasm of bronchus and lung (4) COPD (chronic obstructive pulmonary disease): CODE(S): J44.9 - Chronic obstructive pulmonary disease, unspecified PLAN: Plan Patient evaluated at the wound healing center today. He has been seeing Dr. Drew, hardwood floor finisher, who referred him to us for further treatment. Due to his significant medical history, especially with his COPD and peripheral vascular disease, I would like to treat him conservatively. Wound care - Continue Santyl daily covered with gauze or Sanford SAP. Wash with soap and water at the time of the dressing change. Continue medications that were prescribed by other providers. Wound culture from 03/30/24 showed no growth. Will follow up in 2 weeks.
[2024-04-27 14:10] VITALS: BP 120/48; PULSE 67; RESP 18; TEMP 36.1; BMI 22.4
--- NOTE | 2024-04-27 14:54 | PN.PCM_ITS ---
History of Present Illness Date of Service: 04/27/24 Chief Complaint: Left medial ankle ulcer History of Wound: Patient is a very pleasant 83 year old male with a left medial ankle ulcer that he has been seeing end lathe operator, Dr. Drew. Patient has a significant history for COPD that he sees Palliative care to help manage. He is on home O2. He also has a history of Prostate CA, Squamous carcinoma of left lung, HTN, anxiety and depression, AAA without rupture, CAD, coronary artery stent placement (multiple), CABG x 3, former smoker, PAD, PBH, and pulmonary embolism- on anticoagulants, and hyperlipidemia. He has had arterial studies in the past and had some vascular procedures (by Dr. Freeman) to his left leg. He denies hx of diabetes. His providers are all with [facility]. He has had this left medial ankle ulcer for 3 months. He has been placing Santyl covered with [place] [employer]. There has not been much improvement to this area. He states that he was referred to see us by [facility] and that Dr. Drew also suggested he get a second opinion. He is on a new medication that his states is an antibiotic but they are unsure of the name. He denies fever, chills, nausea or vomiting. He comes in today for further evaluation and treatment. Progress of Wound: Left medial ankle ulcer is stable, there is non viable tissue in the base if the ulcer. He has a left post tib pulse. Toes with capillary refill < 3 seconds. Objective Data Objective Data Vital Signs: Vital Signs Temp Pulse Resp BP O2 Del Method O2 Flow Rate 97 F L 67 18 120/48 L Room Air 5 04/27/24 14:10 04/27/24 14:10 04/27/24 14:10 04/27/24 14:10 04/27/24 14:10 04/13/24 14:21 Oxygen Flow Rate (L/min) 5 Oxygen Delivery Method Room Air Weight: 165 lb Body Mass Index (BMI) 22.4 Charges/Coding Procedures Integumentary 111xxx-113xx: 96976 Nel subq tissue 20 sq cm/< Debridement Note Debridement Note Wound debrided: Medial ankle ulcer Laterality: Left Wound Grade/Stage: Stage 3 Type of Debridement: Excisional debridement Anesthesia Used: 5% Lidocaine Gel Depth: Down to and including healthy tissue and in the subcutaneous layer Percentage of wound debrided: 100 Instrument Used: 3mm curette Tissue Removed: Non viable tissue and slough from around the edges of the ulcer opening Severity: Fat Layer Exposed Amount of bleeding with debridement: None Bleeding Controlled with: Pressure Patient tolerated procedure: Patient tolerated procedure well Post-Debridement Measurements and Additional Note: Post-Debridement Measurements/Treatment - Nurse 1 - General Ulcer Assessment Start: 04/13/24 14:18 Freq: Status: Active Protocol: MILENA Activity Type Activity Date Activity User E-sign Co-sign Detail Recorded Client Recorded Date Recorded By Document 04/13/24 14:21 DL [id number] 04/13/24 14:28 DL Document 04/27/24 14:10 MT [id number] 04/27/24 14:15 MT 04/13/24 04/27/24 14:21 14:10 - Today's Visit Information Type of service Follow-up Visit Follow-up Visit (Physician/MEDICAL RECEPTIONIST BILLER (Physician/MEDICAL RECEPTIONIST BILLER ) ) Arrival Mode Ambulatory Ambulatory Transfer Assistance None Accompanied by Patient Identification Verified (Name & Yes Yes ) Patient Requires Transmission-Based No Precautions Safety Precautions Fall Prevention Height and Weight Body Mass Index (BMI) 22.4 22.4 BMI Classification Normal Normal Vital Signs Temperature (97.8 F-99.1 F) 97.5 F L 97 F L Temperature Source Temporal Temporal Pulse Rate (60-100) 103 H 67 Pulse Location Monitor Monitor Respiratory Rate (12-18) 22 H 18 Respiratory rate source Observation Oxygen Delivery Method Room Air O2 L/MIN (L/min) 5 Blood Pressure (90/60-120/80) 133/55 H 120/48 L Blood Pressure Mean (mm Hg) 81 72 Source Monitor Monitor Position Sitting Blood Pressure Location Left Arm History Since Last Visit- (Skip if this is Patient's initial visit) Have you changed medications since your No last visit? Any new allergies or adverse reactions No Had a fall/change in ADL's that may No increase risk of falls Signs or symptoms of abuse and/or No neglect since last visit Have you been in the hospital since your No last visit? Has dressing in place as prescribed Yes Yes Has compression in place as prescribed N/A Yes Has offloadiing in place as prescribed N/A Yes Experienced any changes in pain level or Yes management Left Footwear Regular Shoe Right Footwear Regular Shoe Pain Scale: 0-10 Numeric Is Patient Pain Free? Yes Yes WC - Nurse 1 - General Ulcer Measurement Start: 04/13/24 14:18 Freq: Status: Active Protocol: Activity Type Activity Date Activity User E-sign Co-sign Detail Recorded Client Recorded Date Recorded By Document 04/13/24 14:21 DL [id number] 04/13/24 14:28 Document 04/27/24 14:10 [id number] 04/27/24 14:15 [place] 04/13/24 04/27/24 14:21 14:10 Wound Center Nurse 1 #1- L MEDIAL ANKLE -Combined with other wound No -Current Size (cm) - Length 0.7 0.5 -Current Size (cm) - Width 0.7 1.0 -Current Size (cm) - Depth 0.3 0.3 -Total Square Cm 0.49 0.50 -Photo Taken No -Tunneling No -Undermining/Tunneling No -Circular Undermining No -Exudate Amt Medium Medium -Exudate Type Serosanguineous Serous -Wound Margin Distinct, Thickened Outline Attached -Granulation Amt None Present (0 Large (67-100%) %) -Granulation Quality Pale,[place] -Necrosis Amt Large (67-100%) Small (1-33%) -Necrotic Tissue Type Adherent Slough Adherent Slough -Structure Exposed N/A -Texture (Bell-wound Skin Appearance) Scarring Assessed -Moisture (Bell-wound Skin Appearance) No Abnormality Assessed -Color (Bell-wound Skin Appearance) Erythema Assessed -Temperature (Bell-wound Skin No Abnormality No Abnormality Appearance) (Pt Warm) (Pt Warm) -Tenderness on Palpation (Bell-wound No Skin Appearance) -Ulcer Cleansing Rinsed/ Soap and Water Irrigated with Saline -Foul Odor after Cleansing No No -Anesthetic Used 5% Lidocaine 5% Lidocaine Gel Gel Lower Limb Edema Present NA WC - Nurse 2 - General Ulcer CM Notes Start: 04/13/24 14:18 Freq: Status: Active Protocol: Activity Type Activity Date Activity User E-sign Co-sign Detail Recorded Client Recorded Date Recorded By Document 04/13/24 14:47 [id number] 04/13/24 14:49 Document 04/27/24 14:49 [id number] 04/27/24 14:50 04/13/24 04/27/24 14:47 14:49 Wound Center Nurse 2 #1- L MEDIAL ANKLE -Time 14:47 14:49 -Correct Patient Yes Yes -Correct Side, Site, Position Yes Yes -Correct Procedure Yes Yes -Procedure Performed Yes Yes -Type of Procedure Debridement Debridement -Clinical Debridement Subcutaneous Subcutaneous -Tissue Removed Subcutaneous Subcutaneous -Post Debridement (cm) - Length 0.7 1.0 -Post Debridement (cm) - Width 0.7 0.8 -Post Debridement (cm) - Depth 0.2 0.3 -Total Square (Post) (cm) 0.49 0.80 -Area of Debridement (cm) - Length 0.7 1.0 -Area of Debridement (cm) - Width 0.7 0.8 -Total Square (Area) (cm) 0.49 0.80 -Tunneling No No -Undermining/Tunneling No No -Circular Undermining No No -Wound/Ulcer Outcome Not Healed Not Healed -Ulcer Cleansing Rinsed/ Not Cleansed Irrigated with Saline -Foul Odor after Cleansing No No -Bioengineered Tissue No No -Bleeding Controlled with Pressure Pressure -Treatment Response Procedure Procedure Tolerated Well Tolerated Well -Debridement - Subq, 1st 20sq cm Yes Yes Pain Scale: 0-10 Numeric Is Patient Pain Free? Yes Yes - Nurse 3 - General Ulcer D/C NN Start: 04/13/24 14:18 Freq: Status: Active Protocol: Activity Type Activity Date Activity User E-sign Co-sign Detail Recorded Client Recorded Date Recorded By Document 04/13/24 15:09 DL [id number] 04/13/24 15:10 DL 04/13/24 15:09 Wound Care Center Nurse 3 #1- L MEDIAL ANKLE -Ulcer Cleansing Rinsed/ Irrigated with Saline -Foul Odor after Cleansing No -Primary Dressing Applied Silicone Border Foam 4x4 -Other Dressing santyl -Other Covering moist gauze -Silicone Border Foam 4x4 1 Treatment Response Procedure Tolerated Well Pain Scale: 0-10 Numeric Is Patient Pain Free? Yes - Visit Discharge Discharge Condition Stable Ambulatory Status Ambulatory, Wheelchair Transportation Private Auto Assessment/Plan Assessment/Plan (1) Chronic ulcer of left ankle: CODE(S): L97.329 - Non-pressure chronic ulcer of left ankle with unspecifi ed severity (2) History of peripheral arterial disease: CODE(S): Z86.79 - Personal history of other diseases of the circulatory system (3) History of lung cancer: CODE(S): Z85.118 - Personal history of other malignant neoplasm of bronchus and lung (4) COPD (chronic obstructive pulmonary disease): CODE(S): J44.9 - Chronic obstructive pulmonary disease, unspecified PLAN: Plan Patient evaluated at the wound healing center today. He has been seeing Dr. Drew, end lathe operator, who referred him to us for further treatment. Due to his significant medical history, especially with his COPD and peripheral vascular disease, I would like to treat him conservatively. Wound care - Continue Santyl daily covered with gauze or [place] [employer]. Wash with soap and water at the time of the dressing change. Continue medications that were prescribed by other providers. Wound culture from 03/30/24 showed no growth. Will follow up in 2 weeks.
== END 2024-04-29 23:59 | disposition home or self-care (01) ==
LOC: WC 14:00
PROVIDERS: PCP Family Medicine; Referring Provider Podiatrist Foot & Ankle Surgery; Visit Provider Nurse Practitioner Family
DX: L97.322 Non-pressure chronic ulcer of left ankle with fat layer exposed (principal); J44.9 Chronic obstructive pulmonary disease, unspecified; I25.10 Atherosclerotic heart disease of native coronary artery without angina pectoris; I73.9 Peripheral vascular disease, unspecified; I10 Essential (primary) hypertension; Z95.5 Presence of coronary angioplasty implant and graft; Z51.5 Encounter for palliative care; E78.5 Hyperlipidemia, unspecified; Z87.891 Personal history of nicotine dependence; F41.9 Anxiety disorder, unspecified; Z95.1 Presence of aortocoronary bypass graft; Z86.79 Personal history of other diseases of the circulatory system; Z85.118 Personal history of other malignant neoplasm of bronchus and lung; Z99.81 Dependence on supplemental oxygen; Z85.46 Personal history of malignant neoplasm of prostate; Z86.711 Personal history of pulmonary embolism; Z79.01 Long term (current) use of anticoagulants
CPT/HCPCS: 11042

== ENCOUNTER 2024-05-11 13:55 | Outpatient (RCR) | payer MEDICARE, BC, SELFPAY ==
[2024-04-30 01:23] VITALS: BP 120/48; PULSE 67; RESP 18; TEMP 36.1; BMI 22.4
[2024-05-11 14:37] VITALS: BP 136/52; PULSE 69; RESP 16; TEMP 36.1; O2SAT 95; BMI 22.4
--- NOTE | 2024-05-11 15:25 | PCM.WC.PN ---
History of Present Illness Date of Service: 05/11/24 Chief Complaint: Left medial ankle ulcer History of Wound: Patient is a very pleasant 83 year old male with a left medial ankle ulcer that he has been seeing web applications programmer, Dr. Drew. Patient has a significant history for COPD that he sees Palliative care to help manage. He is on home O2. He also has a history of Prostate CA, Squamous carcinoma of left lung, HTN, anxiety and depression, AAA without rupture, CAD, coronary artery stent placement (multiple), CABG x 3, former smoker, PAD, PBH, and pulmonary embolism- on anticoagulants, and hyperlipidemia. He has had arterial studies in the past and had some vascular procedures (by Dr. Freeman) to his left leg. He denies hx of diabetes. His providers are all with [facility]. He has had this left medial ankle ulcer for 3 months. He has been placing Santyl covered with [place] [employer]. There has not been much improvement to this area. He states that he was referred to see us by [facility] and that Dr. Drew also suggested he get a second opinion. He is on a new medication that his states is an antibiotic but they are unsure of the name. He denies fever, chills, nausea or vomiting. He comes in today for further evaluation and treatment. Progress of Wound: Left medial ankle ulcer has increased non viable tissue present. No erythema. No clinical sign of infection. This ulcer continues to be painful. He has a left post tib pulse. Toes with capillary refill < 3 seconds. Objective Data Objective Data Vital Signs: Vital Signs Temp Pulse Resp BP Pulse Ox O2 Del Method O2 Flow Rate 97.0 F L 69 16 136/52 H 95 Nasal Cannula 5 05/11/24 14:37 05/11/24 14:37 05/11/24 14:37 05/11/24 14:37 05/11/24 14:37 05/11/24 14:37 05/11/24 14:37 Oxygen Flow Rate (L/min) 5 Oxygen Delivery Method Nasal Cannula Weight: 165 lb Body Mass Index (BMI) 22.4 Charges/Coding Procedures Integumentary 111xxx-113xx: 09492 Nel subq tissue 20 sq cm/< Debridement Note Debridement Note Wound debrided: Medial ankle ulcer Laterality: Left Wound Grade/Stage: Stage 3 Type of Debridement: Excisional debridement Anesthesia Used: 5% Lidocaine Gel Depth: Down to and including healthy tissue and in the subcutaneous layer Percentage of wound debrided: 100 Instrument Used: 3mm curette and Forceps (scissors and pickups) Tissue Removed: Non viable tissue and slough in the base of the ulcer Severity: Fat Layer Exposed Amount of bleeding with debridement: None Bleeding Controlled with: Pressure Patient tolerated procedure: Patient tolerated procedure well Post-Debridement Measurements and Additional Note: Post-Debridement Measurements/Treatment - Nurse 1 - General Ulcer Assessment Start: 05/11/24 14:34 Freq: Status: Active Protocol: MILENA Activity Type Activity Date Activity User E-sign Co-sign Detail Recorded Client Recorded Date Recorded By Document 05/11/24 14:37 KW [id number] 05/11/24 14:41 KW 05/11/24 14:37 WC - Today's Visit Information Type of service Follow-up Visit (Physician/FOOTWEAR PRODUCTION MACHINE OPERATOR ) Arrival Mode Ambulatory, Wheelchair Accompanied by Height and Weight Body Mass Index (BMI) 22.4 BMI Classification Normal Vital Signs Temperature (97.8 F-99.1 F) 97.0 F L Temperature Source Temporal Pulse Rate (60-100) 69 Pulse Location Monitor Respiratory Rate (12-18) 16 Respiratory rate source Observation Pulse Oximetry 95 Oxygen Delivery Method Nasal Cannula O2 L/MIN (L/min) 5 Blood Pressure (90/60-120/80) 136/52 H Blood Pressure Mean (mm Hg) 80 Source Monitor Position Semi-Fowlers Blood Pressure Location Left Arm History Since Last Visit- (Skip if this is Patient's initial visit) Have you changed medications since your No last visit? Any new allergies or adverse reactions No Had a fall/change in ADL's that may No increase risk of falls Signs or symptoms of abuse and/or No neglect since last visit Have you been in the hospital since your No last visit? Has dressing in place as prescribed Yes Has compression in place as prescribed N/A Has offloadiing in place as prescribed N/A Experienced any changes in pain level or No management Left Footwear Regular Shoe Right Footwear Regular Shoe Pain Scale: 0-10 Numeric Is Patient Pain Free? Yes - Nurse 1 - General Ulcer Measurement Start: 05/11/24 14:34 Freq: Status: Active Protocol: Activity Type Activity Date Activity User E-sign Co-sign Detail Recorded Client Recorded Date Recorded By Document 05/11/24 14:37 KW [id number] 05/11/24 14:41 KW 05/11/24 14:37 Wound Center Nurse 1 #1- L MEDIAL ANKLE -Current Size (cm) - Length 0.7 -Current Size (cm) - Width 0.5 -Current Size (cm) - Depth 0.3 -Total Square Cm 0.35 -Date of Last Picture (Recall this 05/11/24 field) -Exudate Amt Medium -Exudate Type Serosanguineous -Wound Margin Distinct, Outline Attached -Granulation Amt Small (1-33%) -Granulation Quality [place] -Necrosis Amt Large (67-100%) -Necrotic Tissue Type Adherent Slough -Texture (Bell-wound Skin Appearance) Assessed, Localized Edema -Moisture (Bell-wound Skin Appearance) Maceration, Weeping -Color (Bell-wound Skin Appearance) Assessed -Temperature (Bell-wound Skin No Abnormality Appearance) (Pt Warm) -Tenderness on Palpation (Bell-wound No Skin Appearance) -Ulcer Cleansing Rinsed/ Irrigated with Saline -Foul Odor after Cleansing No -Anesthetic Used 5% Lidocaine Gel WC - Nurse 2 - General Ulcer CM Notes Start: 05/11/24 14:34 Freq: Status: Active Protocol: Activity Type Activity Date Activity User E-sign Co-sign Detail Recorded Client Recorded Date Recorded By Document 05/11/24 14:54 GM [id number] 05/11/24 14:58 GM Edit Result 05/11/24 14:54 GM (1) [id number] 05/11/24 14:59 GM (1) #1- L MEDIAL ANKLE - Circular Undermining No => Yes 05/11/24 14:54 Wound Center Nurse 2 -Time 14:55 -Correct Patient Yes -Correct Side, Site, Position Yes -Correct Procedure Yes -Procedure Performed Yes -Type of Procedure Debridement -Clinical Debridement Subcutaneous -Tissue Removed Subcutaneous -Post Debridement (cm) - Length 0.6 -Post Debridement (cm) - Width 0.8 -Post Debridement (cm) - Depth 0.5 -Total Square (Post) (cm) 0.48 -Area of Debridement (cm) - Length 0.6 -Area of Debridement (cm) - Width 0.8 -Total Square (Area) (cm) 0.48 -Tunneling No -Undermining/Tunneling No -Circular Undermining Yes -Wound/Ulcer Outcome Not Healed -Ulcer Cleansing Rinsed/ Irrigated with Saline -Foul Odor after Cleansing No -Bioengineered Tissue No -Bleeding Controlled with Pressure -Treatment Response Procedure Tolerated Well -Offloading No -Debridement - Subq, 1st 20sq cm Yes Pain Scale: 0-10 Numeric Is Patient Pain Free? Yes WC - Nurse 3 - General Ulcer D/C NN Start: 05/11/24 14:34 Freq: Status: Active Protocol: Activity Type Activity Date Activity User E-sign Co-sign Detail Recorded Client Recorded Date Recorded By Document 05/11/24 15:10 KW [id number] 05/11/24 15:10 KW 05/11/24 15:10 Wound Care Center Nurse 3 #1- L MEDIAL ANKLE -Primary Dressing Applied Silicone Border Foam 4x4 -Other Dressing santyl applied with moist gauze -Primary Dressing Covered/Secured with Dry Gauze -Silicone Border Foam 4x4 1 Pain Scale: 0-10 Numeric Is Patient Pain Free? Yes Assessment/Plan Assessment/Plan (1) Chronic ulcer of left ankle: CODE(S): L97.329 - Non-pressure chronic ulcer of left ankle with unspecified severity (2) History of peripheral arterial disease: CODE(S): Z86.79 - Personal history of other diseases of the circulatory system (3) History of lung cancer: CODE(S): Z85.118 - Personal history of other malignant neoplasm of bronchus and lung (4) COPD (chronic obstructive pulmonary disease): CODE(S): J44.9 - Chronic obstructive pulmonary disease, unspecified PLAN: Plan Patient evaluated at the wound healing center today. He has been seeing Dr. Drew, web applications programmer, who referred him to the wound healing center for further evaluation and treatment. Due to his significant medical history, especially with his COPD and peripheral vascular disease, I would like to treat him conservatively. Wound care - Continue Santyl daily covered with gauze or [place] SAP. Wash with soap and water at the time of the dressing change. Wound culture from 03/30/24 showed no growth. Will follow up in 2 weeks with one of the podiatrists here at the wound healing center.
--- NOTE | 2024-05-12 11:56 | WC ---
PHOTO 05/11/24 LEFT MEDIAL ANKLE
== END 2024-05-30 23:59 | disposition home or self-care (01) ==
LOC: WC 13:55
PROVIDERS: PCP Family Medicine; Referring Provider Podiatrist Foot & Ankle Surgery; Visit Provider Podiatrist Foot & Ankle Surgery
DX: L97.322 Non-pressure chronic ulcer of left ankle with fat layer exposed (principal); J44.9 Chronic obstructive pulmonary disease, unspecified; I25.10 Atherosclerotic heart disease of native coronary artery without angina pectoris; Z87.891 Personal history of nicotine dependence; I10 Essential (primary) hypertension; E78.5 Hyperlipidemia, unspecified; Z51.5 Encounter for palliative care; Z95.5 Presence of coronary angioplasty implant and graft; F41.9 Anxiety disorder, unspecified; I73.9 Peripheral vascular disease, unspecified; Z86.79 Personal history of other diseases of the circulatory system; Z85.118 Personal history of other malignant neoplasm of bronchus and lung; Z95.1 Presence of aortocoronary bypass graft; Z99.81 Dependence on supplemental oxygen; Z86.711 Personal history of pulmonary embolism; Z85.46 Personal history of malignant neoplasm of prostate; Z79.01 Long term (current) use of anticoagulants
CPT/HCPCS: 11042

== ENCOUNTER 2024-05-22 12:02 | Inpatient (IN) | payer MEDICARE, BC, SELFPAY ==
[2024-05-22] VITALS (18 sets, daily range): BP systolic 111–146; BP diastolic 56–95; PULSE 79–108; RESP 18–38; TEMP 36.2–36.9; O2SAT 86–100; BMI 22.9
--- NOTE | 2024-05-22 12:13 | EKG12_ITS ---
Test Reason : SOB Blood Pressure : */* mmHG Vent. Rate : 79 BPM Atrial Rate : 79 BPM P-R Int : 154 ms QRS Dur : 86 ms QT Int : 360 ms P-R-T Axes : 81 52 4 degrees QTcB Int : 412 ms Normal sinus rhythm Nonspecific ST and T wave abnormality Abnormal ECG Confirmed by NITHYA SOTO, SHANTA ([id number]), newspaper or periodical editor YINA HERNANDEZ ([id number]) on 05/23/2024 8:20:59 AM Referred By: Confirmed By: SHANTA BARRIGA MD
--- NOTE | 2024-05-22 12:15 | EX.ED.DYSGE1 ---
HPI History of Present Illness Chief Complaint: Shortness of Breath Detail of Chief Complaint: Shortness of breath since Thursday Informant: patient and spouse/S.O. 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 He is seen by geoscience laboratory technician. He is presently on prednisone 10 mg. He apparently did work outside on . Symptoms started on Thursday. He does have a cough which is chronic. He does have colored sputum which is not normal. He has had no ill contacts. He has a chronic intermittent runny nose. He denies fever, chills night sweats. He does have remote history of DVT. He presently denies leg pain, swelling discoloration. Patient denies chest pain, pressure or tightness. He denies pain with breathing. He denies abdominal pain, nausea, vomiting or diarrhea. Patient does have history of COPD with chronic respiratory failure, coronary disease, lung cancer diagnosed several years ago, prostate cancer, hyperlipidemia, BPH and PAD. Prior similar symptoms: Yes Recent Illness/Hospitalization: No PFSH [facility] Medical History COPD exacerbation Angina at rest Pulmonary embolus COVID Fecal occult blood test positive Abnormal chest CT COPD with acute exacerbation Squamous cell carcinoma of left lung Lung mass Depression Myocardial infarct Coronary artery disease Pulmonary neoplasm Wears glasses Wears dentures Cancer Anxiety Abrasion History of steroid therapy Prostate disease High cholesterol Injury of back Syncope History of weight loss Former smoker COPD (chronic obstructive pulmonary disease) On home oxygen therapy Shortness of breath on exertion Chronic cough History of stress test Cardiology follow-up encounter Chest pain No pertinent family history 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 Nocturnal hypoxemia Chronic hypoxemic respiratory failure Bronchiectasis Prostate CA CAD (coronary artery disease) HLD (hyperlipidemia) Benign essential HTN Home Medications ?Medication ?Instructions ?Recorded ?Last Taken ?Type nitroglycerin 0.4 mg sublingual 0.4 mg sublingual Q5M PRN Chest 12/29/14 1 Week Ago History tablet Pain ~07/02/20 fluticasone propionate 230 2 puff inhalation BID breathing 08/07/22 05/22/24 History mcg-salmeterol 21 mcg/actuation HFA inhaler (Advair HFA) atorvastatin 40 mg tablet 40 mg PO QHS cholesterol 03/25/23 05/21/24 History duloxetine 30 mg capsule,delayed 30 mg PO QPM DEPRESSION 03/25/23 05/21/24 History release tamsulosin 0.4 mg capsule 0.4 mg PO QPM BLADDER/ PROSTATE 03/25/23 05/21/24 History tiotropium bromide 2.5 2 puff inhalation DAILY copd 03/25/23 10/05/23 History mcg/actuation mist for inhalation (Spiriva Respimat) ezetimibe 10 mg tablet 10 mg PO DAILY cholesterol 09/28/23 05/21/24 History apixaban 5 mg tablet (Eliquis) 5 mg PO BID blood thinner 10/05/23 05/22/24 History albuterol sulfate 90 mcg/actuation 2 puff inhalation Q4H PRN wheezing 02/19/24 Unknown History aerosol inhaler aspirin 81 mg tablet,delayed 81 mg PO DAILY heart 02/19/24 05/21/24 History release (Enteric Coated Aspirin) lorazepam 1 mg tablet 1 mg PO TID anxiety 02/19/24 05/22/24 History metoprolol tartrate 25 mg tablet 12.5 mg PO BID heart 02/20/24 05/22/24 History oxycodone 5 mg tablet 5 mg PO Q4H PRN chronic pain 02/21/24 05/22/24 History ondansetron 4 mg disintegrating 4 mg PO DAILY PRN nausea and 03/30/24 Unknown History tablet vomiting roflumilast 500 mcg tablet 500 mcg PO DAILY 03/30/24 05/21/24 History collagenase clostridium histo. 250 1 applic topical DAILY 05/22/24 05/21/24 History unit/gram topical ointment (Santyl) cyclosporine 0.05 % eye drops in a 1 drp ophthalmic (eye) BID 05/22/24 05/21/24 History dropperette (Restasis) fluconazole 100 mg tablet 100 mg PO DAILY 05/22/24 05/21/24 History furosemide 20 mg tablet (Lasix) 20 mg PO DAILY weight gain 05/22/24 05/21/24 History guaifenesin 600 mg tablet, 1,200 mg PO BID cough 05/22/24 05/22/24 History extended release 12 hr (Mucinex) prednisone 10 mg tablet 10 mg PO DAILY 05/22/24 05/22/24 History Allergy/AdvReac Type Severity Reaction Status Date / Time isosorbide (From Imdur) Allergy Other-patient Verified 05/22/24 12:03 blacks out Family History Mother Cancer Father Heart disease COPD (chronic obstructive pulmonary disease) Surgical History Hx of CABG Hx of heart artery stent Hx of transurethral resection of prostate Hx of pneumonectomy Hx of CABG No pertinent past surgical history Social History household members: spouse Smoking Status: Former smoker Tobacco: How many years used: 45 Electronic Cigarette Use: not used how long ago did patient quit smokin, second hand exposure: Yes alcohol intake: never substance use type: does not use ROS ROS ED Constitutional Constitutional ED: Denies chills, fever(s), subjective, sweats or weight loss Eyes Eyes: Denies blurry vision, change in vision or diplopia ENT ENT ED: Reports rhinorrhea; Denies ear pain or sore throat Cardiovascular Cardiovascular: Denies chest pain, orthopnea, palpitations, paroxysmal nocturnal dyspnea or racing heartbeat Respiratory/Chest Respiratory/Chest: Reports cough, dyspnea, dyspnea on exertion and sputum; Denies orthopnea or paroxysmal nocturnal dyspnea Gastrointestinal Gastrointestinal: Denies abdominal pain, diarrhea, nausea or vomiting Genitourinary Genitourinary ED: Denies dysuria, hematuria or urinary frequency Musculoskeletal Musculoskeletal: Denies arthralgias or myalgias Integumentary Reports other Details: Patient has multiple bruises. He states this is not new. ; Denies rash Neurologic Neurologic: Reports weakness Hematologic/Lymphatic Hematologic/Lymphatic: Reports systems reviewed and no addt'l complaints, except as documented EXAM Physical Exam Const Vital Signs: 05/22/24 12:03 05/22/24 12:14 05/22/24 12:50 Temperature 97.4 F L Temperature Source Temporal Pulse Rate 106 H 80 Respiratory Rate 38 H 22 H Respiratory Effort Normal Short of Breath Labored Respiratory Depth Normal Respiratory Pattern Normal Tachypnea Blood Pressure 117/59 L Blood Pressure Mean 78 Pulse Ox 86 Oxygen Delivery Method Nasal Cannula Nasal Cannula Oxygen Flow Rate (L/min) 5 5 05/22/24 13:01 05/22/24 13:18 05/22/24 14:00 Temperature Temperature Source Pulse Rate 79 96 Respiratory Rate 18 28 H Respiratory Effort Respiratory Depth Respiratory Pattern Blood Pressure 122/56 H 146/77 H Blood Pressure Mean 78 100 Pulse Ox 98 100 100 Oxygen Delivery Method Nasal Cannula Nasal Cannula Nasal Cannula Oxygen Flow Rate (L/min) 5 4 05/22/24 15:00 Temperature Temperature Source Pulse Rate 92 Respiratory Rate 26 H Respiratory Effort Respiratory Depth Respiratory Pattern Blood Pressure 111/63 Blood Pressure Mean 79 Pulse Ox 100 Oxygen Delivery Method Nasal Cannula Oxygen Flow Rate (L/min) Positive well developed Constitutional Narrative: Patient is slightly cachectic. Presume he has consumptive COPD. He is tachycardic and tachypneic. He is breathing between 40 to 44 breaths/min. He is breathing with Edmondson lips and audible wheezing noted even before entering the room. General Appearance ED: well developed; Negative for cyanotic, diaphoretic, NAD or pallor HEENT Reports dry mucous membranes HEENT Narrative: Head is atraumatic normocephalic. Ears normal. Nares patent. Posterior pharynx unremarkable. Mouth ED: Yes dry mucous membranes Mouth: dry mucous membranes Eyes PERRL and EOMs intact bilaterally General Eye ED: Negative for pale conjunctiva or scleral icterus Neck no lymphadenopathy, supple and no JVD Chest Wall inspection of chest normal and palpation of chest normal Resp No normal respiratory effort and No clear to auscultation bilaterally Resp Narrative: Patient has use of accessory muscles. There is diminished breath sounds bilaterally. There is high-pitched wheezing with increased expiratory phase. There is slight scattered rales at the right and left base. Cardio regular rhythm, S1 normal heart sound, S2 normal heart sound and no murmurs Rate: tachycardic GI normal to inspection, nondistended, normoactive bowel sounds, non-tender, non-distended and no masses; Negative for hepatosplenomegaly Back/Spine no CVA tenderness Extremity Extremity Narrative: There is no asymmetry, swelling, discoloration, leg vein distention, palpable cords or tenderness along the distribution of the deep venous system. Patient does have stigmata of PAD. Neuro oriented x3, CN's II-XII intact bilaterally and no sensory deficits noted Sensorium / Orientation: alert Motor Exam: strength 5/5 throughout Psych mental status grossly normal Skin Skin Narrative: Multiple bruises upper extremity. General Skin Exam: Negative for jaundice or pallor Sepsis Attestation Sepsis Alert: Yes Sepsis Attestation: Agree w/Sepsis Date exam was performed: 05/22/24 Time exam was performed: 14:50 Possible Source of Sepsis: Pulmonary Sepsis Organ Dysfunction Criteria Present: Lactic Acid > 2 mmol/L Supportive Findings: Once I read the radiologist report and noted there was groundglass infiltrate right lower lobe sepsis treatment order set was initiated. He was treated with Rocephin and azithromycin and blood cultures were obtained. MDM MDM MDM Narrative Medical decision making narrative: Differential diagnosis would include exacerbate COPD due to viral or bacterial infection, pneumonia, pneumothorax, pulmonary embolus. Clinically I believe this is COPD exacerbation either due to viral or bacterial infection. Patient was treated with Solu-Medrol, DuoNeb and albuterol. Appropriate blood work was obtained to assess white count, differential, renal function, endorgan dysfunction. Chest x-ray was ordered. History & Record Review Additional record(s) reviewed:: Prior inpatient record (Patient was admitted February 22, 2024 for COPD exacerbation. Discharge summary authored by Dr. Abiel Chan was reviewed.), Prior outpatient record (Outpatient note authored by nurse practitioner Lola vernon for healing wound was reviewed. Most recent visit was May 11, 2024.), Prior ED visit and Prior labs Lab Data Attestation: I reviewed the patient's lab results. Lab results narrative: White count is elevated 13.5 with shift of 96% segs. This could be due to the steroids. Patient's white count on February 22, 2024 was 11.2. Differential was not performed at that time. BMP is remarkable for glucose of 180 with a normal CO2 anion gap. BUN to creatinine ratio slightly elevated 22-1. Liver enzymes are normal. Labs: Laboratory Results - last 24 hr 05/22/24 12:38 WBC 13.5 H RBC 3.73 L Hgb 10.2 L Hct 33.4 L MCV 89.5 MCH 27.3 MCHC 30.5 L RDW Std Deviation 54.5 H RDW Coeff of Estelita 16.5 H Plt Count 197 MPV 8.9 Immature Gran % (Auto) 0.600 Neut % (Auto) 95.5 H Lymph % (Auto) 1.3 L [place] % (Auto) 2.4 Eos % (Auto) 0.1 Baso % (Auto) 0.1 Absolute Neuts (auto) 12.9 H Absolute Lymphs (auto) 0.18 L Nucleated RBC % 0 Sodium 140 Potassium 4.9 Chloride 102 Carbon Dioxide 26.4 Anion Gap 11 BUN 16 Creatinine 0.75 Estim Creat Clear Calc 78.56 Est GFR (MDRD) Non-Af 91 BUN/Creatinine Ratio 21.8 H Glucose 180 H Lactic Acid 2.7 H* Calcium 9.2 Total Bilirubin 0.50 AST 22 ALT 12 Alkaline Phosphatase 82 Total Protein 6.0 Albumin 3.4 Globulin 2.7 Albumin/Globulin Ratio 1.3 Radiography Chest X-Ray - ED: 2 View, Read by ED Physician (Comparison film from 2023 was used. The only difference in films is the penetration. There is no Insa pneumothorax or effusion. There is scarring noted left greater than right.), Unchanged, No Acute Disease and Chronic Changes Diagnostic Testing: Clinical Impression(s) from Imaging Studies Chest X-Ray 05/22/24 13:30 IMPRESSION: Prior sternotomy again noted. Persistent left upper and lower lung areas increased density, most probably representing scarring, not clearly changed. Areas of lesser changes are seen of the right, with marked interval improvement in the right lower lung airspace disease compared with the study of 02/19/2024. No new or worsened pneumonic process is seen. Probable small left pleural effusion. No definite right pleural effusion is seen. No pneumothorax is noted. The cardiomediastinal silhouette is stable, without evidence of cardiomegaly. Reading Location: [address] Chest CTA 05/22/24 13:50 IMPRESSION: 1. Although predominantly ground-glass opacities, extensive changes are seen in the right lower lobe, concerning for inflammation/infection. 2. Progression of areas of left lower lobe and left upper lobe scarring, also again seen with left lower lobe pleural-based loculated air collection. 3. No evidence of pulmonary embolism. Reading Location: [address] EKG Initial EKG: Attestation: I personally reviewed and interpreted this EKG as follows: Interpretation: Sinus Rhythm (Rate is 79. IN interval is 154 ms. Cures duration 86 ms. QT duration 360 ms. [place] is normal. There is artifact that the computer is reading is nonseptic changes.) Management Discussion w/another healthcare provider: Hospitalist (Patient case was discussed with Dr. Terrell Suazo. Full admit PCU.) Treatment and Re-Evaluation :: Patient was seen at 1335. He is no longer breathing with pierced lips. He no longer has audible wheezing. His respiratory rate has decreased significantly. Discharge Plan Dx/Rx/DC Orders Clinical Impression: Right lower lobe pulmonary infiltrate, CAD (coronary artery disease), Acute exacerbation of chronic obstructive pulmonary disease, History of peripheral arterial disease, Bronchiectasis, Acute bronchospasm, Acute respiratory distress, Chronic respiratory failure with hypoxia and hypercapnia, Acidosis, lactic Disposition Disposition: Acute Care Hospital [facility]
[2024-05-22] MEDS: MethylPREDNISolone 125 MG/2 ML Vial IV (12:45)
[2024-05-22 12:46] LABS: Absolute Lymphocyte Count 0.18 X10^3/uL (0.83-4.51); Absolute Neutrophil Count 12.9 X10^3/uL (2.0-7.7); Basophil# 0.01 X10^3/uL; Basophil% 0.1 % (0-1); Eosinophil# 0.01 X10^3/uL; Eosinophils% 0.1 % (0-5); Hematocrit 33.4 % (40-54); Hemoglobin 10.2 g/dL (13.0-16.5); Lymphocyte # 0.18 X10^3/ul (0.83-4.51); Lymphocyte % 1.3 % (19-41); Mean Corp Hgb Conc 30.5 g/dL (32-36); Mean Corpuscular Hgb 27.3 pg (27.0-32.0); Mean Corpuscular Volume 89.5 fL (80-94); Mean Platelet Vol. 8.9 fl (6.2-12.0); Monocyte# 0.33 X10^3/uL; Monocyte% 2.4 % (0-10); NRBC Flagged by Analyzer 0 % (0-5); Neutrophil % 95.5 % (47-70); POSITIVE DIFFERENTIAL YES; Platelet Count 197 K/mm3 (150-450); RBC Distribution Width CV 16.5 % (11.6-14.6); RBC Distribution Width SD 54.5 fl (35.1-43.9); Red Blood Count 3.73 M/mm3 (4.6-6.2); White Blood Count 13.5 K/mm3 (4.4-11.0)
[2024-05-22] MEDS: Albuterol 2.5 MG/3 ML VIAL.NEB. INHALATION ×3 (12:48→13:01)
[2024-05-22] MEDS: Ipratropium/Albuterol Sulfate 3 ML AMPUL.NEB INHALATION ×2 (12:48→19:22)
[2024-05-22 13:14] LABS: ALB/GLOB Ratio 1.3 RATIO (0.9-2.4); AST(SGOT) 22 U/L (<=37); Alanine Aminotransfer ALT/SGPT 12 U/L (<=46); Albumin, Serum 3.4 g/dL (3.4-4.8); Alkaline Phosphatase 82 U/L (40-129); Anion Gap 11 (5-15); BUN 16 mg/dL (4-19); BUN/Creat Ratio 21.8 RATIO (10-20); Calcium,Total 9.2 mg/dL (7.6-11.0); Carbon Dioxide 26.4 mmol/L (21.0-32.0); Chloride 102 mmol/L (98-108); Creatinine, Serum 0.75 mg/dL (0.70-1.20); EST Glomerular Filtration Rate 91 (>60); Estimated Creatinine Clearance 78.56 ml/min (50-250); Globulin 2.7 g/dL (2.2-4.2); Glucose 180 mg/dL (70-99); Potassium 4.9 mmol/L (3.3-5.1); Sodium Level 140 mmol/L (133-145)
--- NOTE | 2024-05-22 13:30 | RAD_ITS ---
EXAM: CHEST PA AND LATERAL CLINICAL HISTORY: DYSPNEA, CHRONIC RESPIRATORY FAILURE, WHEEZING COMPARISON: None. TECHNIQUE: Four view PA and lateral views of the chest obtained. RAD/Chest PA and Lateral IMPRESSION: Prior sternotomy again noted. Persistent left upper and lower lung areas increased density, most probably rep resenting scarring, not clearly changed. Areas of lesser changes are seen of the right, with marked interval improvement in the right lower lung airspace disease compared with the study of 02/19/2024. No new or worsened pneumonic process is seen. Probable small left pleural effusion. No definite right pleural effusion is seen. No pneumothorax is noted. The cardiomediastinal silhouette is stable, without evidence of cardiomegaly. Reading Location: [id number]
--- NOTE | 2024-05-22 13:50 | CT_ITS ---
PROCEDURE: CTA CHEST W/WO CONTRAST 05/22/2024 REASON FOR EXAM: ACUTE DYSPNEA, HISTORY OF PE, HISTORY OF CANCER TECHNIQUE: CTA axial imaging of the chest with intravenous contrast. Coronal and Sagittal reconstruction series were provided. 3D, 3D post processing, 3D reconstructions, Maximum intensity projection (MIPs) Volume rendering and Shaded surface rendering was provided. PATIENT PREPARATION: Per protocol CONTRAST: Isovue 370 VOLUME: 100mL. One or more dose reduction techniques were used (e.g., Automated exposure control, adjustment of the mA and/or kV according to patient size, use of iterative reconstruction technique). RADIATION DOSE SUMMARY: CTDlvol: 10.88 mGy DLP: 415.87 mGycm. COMPARISON: Chest x-ray 05/22/[address] examination 10/05/2019 FINDINGS: Hardware: Prior sternotomy. Lymph nodes: Multiple small nonspecific mediastinal lymph nodes are noted. Heart: No evidence of cardiomegaly. No pericardial effusion is seen Thoracic Aorta: [id number] aortic calcification is seen, with a somewhat tortuous aorta noted. No aneurysmal dilation of the aorta is seen in visualized areas. Pulmonary Vessels: No evidence of pulmonary embolism. Lungs and Airways: No evidence of pulmonary edema. Although predominantly ground-glass opacities, extensive changes are seen in the right lower lobe, concerning for inflammation/infection. An area of left upper lobe scarring is seen. This has progressed somewhat since the prior study. Mild right lower lobe scarring is probably unchanged from the prior exam. Pleura: A left lower lobe lateral pleural-based loculated air collection is again seen, with irregular thickened wall posteriorly. Some developing areas of peripheral calcification are noted. Additionally, slight interval increase in central retraction is noted, consistent with worsening scarring. No free pneumothorax is noted. No layering pleural effusion is evident. Upper Abdomen: Visualized portions of the upper abdomen show no acute process. Bones: [id number] degenerative changes of the visualized spine are seen. CT/CTA Chest W/WO Contrast IMPRESSION: 1. Although predominantly ground-glass opacities, extensive changes are seen in the right lower lobe, concerning for inflammation/infection. 2. Progression of areas of left lower lobe and left upper lobe scarring, also a gain seen with left lower lobe pleural-based loculated air collection. 3. No evidence of pulmonary embolism. Reading Location: [id number]
--- NOTE | 2024-05-22 15:14 | PCM.HP.STD ---
HPI - General General Date of Admission: 05/22/24 Date of Service: 05/22/24 Chief Complaint: Worsening shortness of breath HPI Narrative OSWALDO MENDIOLA, is a 83 M who presented to [facility] ED on 05/22/2024 with worsening shortness of breath. Patient has history of COPD with chronic respiratory failure on 4 to 5 L nasal cannula at baseline. Was last hospitalized here in January for a COPD exacerbation with suspected pneumonia. He recovered well during that hospitalization and was discharged home on hospital day 4. Patient states today that he has had increasing shortness of breath since Thursday. He was able to work outside on without issue. Denies any recent sick contacts that he is aware of. Today he had significant worsening shortness of breath to the point where he could only walk a few steps without getting very dyspneic. In the ED he was breathing 40-45 times per minute initially. Lactate was 2.7. He was mildly hypoxic to the mid 80s on 4 L nasal cannula. He was given a breathing treatment and dose of steroids and his work of breathing did moderately improve at that time. CTA chest showed no PE, did show bibasilar groundglass opacities that were new in comparison to last CT chest that was done in September. Patient also has history of left lung cancer with resection and this area of the CT scan was the same, and chronic scarring changes were also noted. COVID/flu/RSV negative. Given concern for COPD exacerbation and pneumonia, hospitalist was contacted for admission. I saw the patient at bedside in the ED, was present. Patient was sitting back in bed and had mild increased work of breathing noted with pursed lips, but otherwise was conversing normally and in no acute distress. He had good skin color and appeared well-hydrated. noted that he does not appear nearly as sick as he has on previous admissions. Patient reports having a runny nose over the past week or so. He denies any fevers or chills. Denies any chest pain or lower extremity swelling. No other acute concerns at this time. [facility] Medical History COPD exacerbation Angina at rest Pulmonary embolus COVID Fecal occult blood test positive Abnormal chest CT COPD with acute exacerbation Squamous cell carcinoma of left lung Lung mass Depression Myocardial infarct Coronary artery disease Pulmonary neoplasm Wears glasses Wears dentures Cancer Anxiety Abrasion History of steroid therapy Prostate disease High cholesterol Injury of back Syncope History of weight loss Former smoker COPD (chronic obstructive pulmonary disease) On home oxygen therapy Shortness of breath on exertion Chronic cough History of stress test Cardiology follow-up encounter Chest pain No pertinent family history 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 Nocturnal hypoxemia Chronic hypoxemic respiratory failure Bronchiectasis Prostate CA CAD (coronary artery disease) HLD (hyperlipidemia) Benign essential HTN Home Medications ?Medication ?Instructions ?Recorded ?Last Taken ?Type nitroglycerin 0.4 mg sublingual 0.4 mg sublingual Q5M PRN Chest 12/29/14 1 Week Ago History tablet Pain ~07/02/20 fluticasone propionate 230 2 puff inhalation BID breathing 08/07/22 05/22/24 History mcg-salmeterol 21 mcg/actuation HFA inhaler (Advair HFA) atorvastatin 40 mg tablet 40 mg PO QHS cholesterol 03/25/23 05/21/24 History duloxetine 30 mg capsule,delayed 30 mg PO QPM DEPRESSION 03/25/23 05/21/24 History release tamsulosin 0.4 mg capsule 0.4 mg PO QPM BLADDER/ PROSTATE 03/25/23 05/21/24 History tiotropium bromide 2.5 2 puff inhalation DAILY copd 03/25/23 10/05/23 History mcg/actuation mist for inhalation (Spiriva Respimat) ezetimibe 10 mg tablet 10 mg PO DAILY cholesterol 09/28/23 05/21/24 History apixaban 5 mg tablet (Eliquis) 5 mg PO BID blood thinner 10/05/23 05/22/24 History albuterol sulfate 90 mcg/actuation 2 puff inhalation Q4H PRN wheezing 02/19/24 Unknown History aerosol inhaler aspirin 81 mg tablet,delayed 81 mg PO DAILY heart 02/19/24 05/21/24 History release (Enteric Coated Aspirin) lorazepam 1 mg tablet 1 mg PO TID anxiety 02/19/24 05/22/24 History metoprolol tartrate 25 mg tablet 12.5 mg PO BID heart 02/20/24 05/22/24 History oxycodone 5 mg tablet 5 mg PO Q4H PRN chronic pain 02/21/24 05/22/24 History ondansetron 4 mg disintegrating 4 mg PO DAILY PRN nausea and 03/30/24 Unknown History tablet vomiting roflumilast 500 mcg tablet 500 mcg PO DAILY 03/30/24 05/21/24 History collagenase clostridium histo. 250 1 applic topical DAILY 05/22/24 05/21/24 History unit/gram topical ointment (Santyl) cyclosporine 0.05 % eye drops in a 1 drp ophthalmic (eye) BID 05/22/24 05/21/24 History dropperette (Restasis) fluconazole 100 mg tablet 100 mg PO DAILY 05/22/24 05/21/24 History furosemide 20 mg tablet (Lasix) 20 mg PO DAILY weight gain 05/22/24 05/21/24 History guaifenesin 600 mg tablet, 1,200 mg PO BID cough 05/22/24 05/22/24 History extended release 12 hr (Mucinex) prednisone 10 mg tablet 10 mg PO DAILY 05/22/24 05/22/24 History Allergy/AdvReac Type Severity Reaction Status Date / Time isosorbide (From Imdur) Allergy Other-patient Verified 05/22/24 12:03 blacks out Family History Mother Cancer Father Heart disease COPD (chronic obstructive pulmonary disease) Surgical History Hx of CABG Hx of heart artery stent Hx of transurethral resection of prostate Hx of pneumonectomy Hx of CABG No pertinent past surgical history Social History household members: spouse Smoking Status: Former smoker Tobacco: How many years used: 45 Electronic Cigarette Use: not used how long ago did patient quit smokin, second hand exposure: Yes alcohol intake: never substance use type: does not use ROS Constitutional Constitutional: Denies chills, fatigue, fever(s) or weakness Eyes Eyes: Denies change in vision ENT HEENT: Reports nasal congestion; Denies nasal discharge, post nasal drip or sore throat Cardiovascular Cardiovascular: Denies chest pain Respiratory/Chest Respiratory/Chest: Reports cough, dyspnea, shortness of breath at rest, shortness of breath with exertion and wheezing; Denies productive cough Gastrointestinal Gastrointestinal: Denies abdominal pain Genitourinary Genitourinary: Denies dysuria Musculoskeletal Musculoskeletal: Denies arthralgias or myalgias Neurologic Neurologic: Denies dizziness or headache(s) Vital Signs Vital Signs Vital Signs: 05/22/24 12:03 05/22/24 12:14 05/22/24 12:50 Temperature 97.4 F L Temperature Source Temporal Pulse Rate 106 H 80 Respiratory Rate 38 H 22 H Respiratory Effort Normal Short of Breath Labored Respiratory Depth Normal Respiratory Pattern Normal Tachypnea Blood Pressure 117/59 L Blood Pressure Mean 78 Pulse Ox 86 Oxygen Delivery Method Nasal Cannula Nasal Cannula Oxygen Flow Rate (L/min) 5 5 05/22/24 13:01 05/22/24 13:18 05/22/24 14:00 Temperature Temperature Source Pulse Rate 79 96 Respiratory Rate 18 28 H Respiratory Effort Respiratory Depth Respiratory Pattern Blood Pressure 122/56 H 146/77 H Blood Pressure Mean 78 100 Pulse Ox 98 100 100 Oxygen Delivery Method Nasal Cannula Nasal Cannula Nasal Cannula Oxygen Flow Rate (L/min) 5 4 05/22/24 15:00 Temperature Temperature Source Pulse Rate 92 Respiratory Rate 26 H Respiratory Effort Respiratory Depth Respiratory Pattern Blood Pressure 111/63 Blood Pressure Mean 79 Pulse Ox 100 Oxygen Delivery Method Nasal Cannula Oxygen Flow Rate (L/min) Weight Weight: 76.7 kg Body Mass Index (BMI) 22.9 Physical Exam Const alert, oriented x3, no apparent distress and average body habitus Constitutional Narrative: Pleasant elderly male, sitting back comfortably in bed, mild increased work of breathing with pursed lips noted but otherwise good skin color and turgor, and patient conversing normally with no conversational dyspnea. General Appearance: cooperative and comfortable HEENT normocephalic, head/scalp atraumatic, hearing grossly normal bilaterally, nasal mucous membranes and turbinates normal and moist oral mucous membranes Eyes PERRL, EOMs intact bilaterally and conjunctivae normal Neck full ROM Chest inspection of chest normal Resp no use of accessory muscles Resp Narrative: Mild increased work of breathing with pursed lip breathing noted on 5 L nasal cannula. Moderately diminished breath sounds bilaterally throughout but no wheezing or crackles noted. Cardio regular rate, regular rhythm, no murmurs and peripheral pulses 2+ throughout GI normal to inspection, nondistended, normoactive bowel sounds, soft to palpation, non-tender and non-distended Back/Spine normal ROM Extremity normal to inspection, full ROM and no pedal edema Skin no rashes or lesions noted Neuro moves all extremities and no focal motor deficits Speech: speech normal Motor Exam: strength 5/5 throughout Psych mental status grossly normal Results Lab / Micro Data 05/22/24 12:38 05/22/24 12:38 Labs: Laboratory Results - last 24 hr 05/22/24 12:38: WBC 13.5 H, RBC 3.73 L, Hgb 10.2 L, Hct 33.4 L, MCV 89.5, MCH 27.3, MCHC 30.5 L, RDW Std Deviation 54.5 H, RDW Coeff of Estelita 16.5 H, Plt Count 197, MPV 8.9, Immature Gran % (Auto) 0.600, Neut % (Auto) 95.5 H, Lymph % (Auto) 1.3 L, [place] % (Auto) 2.4, Eos % (Auto) 0.1, Baso % (Auto) 0.1, Absolute Neuts (auto) 12.9 H, Absolute Lymphs (auto) 0.18 L, Nucleated RBC % 0, Sodium 140, Potassium 4.9, Chloride 102, Carbon Dioxide 26.4, Anion Gap 11, BUN 16, Creatinine 0.75, Estim Creat Clear Calc 78.56, Est GFR (MDRD) Non-Af 91, BUN/Creatinine Ratio 21.8 H, Glucose 180 H, Lactic Acid 2.7 H*, Calcium 9.2, Total Bilirubin 0.50, AST 22, ALT 12, Alkaline Phosphatase 82, Total Protein 6.0, Albumin 3.4, Globulin 2.7, Albumin/Globulin Ratio 1.3 Micro: Microbiology 05/22/24 12:25 Mucosa - Nose SARS-CoV-2, Influenza & RSV (PCR) - Final Imaging Radiology Impression Chest X-Ray 05/22/24 13:30 IMPRESSION: Prior sternotomy again noted. Persistent left upper and lower lung areas increased density, most probably representing scarring, not clearly changed. Areas of lesser changes are seen of the right, with marked interval improvement in the right lower lung airspace disease compared with the study of 02/19/2024. No new or worsened pneumonic process is seen. Probable small left pleural effusion. No definite right pleural effusion is seen. No pneumothorax is noted. The cardiomediastinal silhouette is stable, without evidence of cardiomegaly. Reading Location: [address] Chest CTA 05/22/24 13:50 IMPRESSION: 1. Although predominantly ground-glass opacities, extensive changes are seen in the right lower lobe, concerning for inflammation/infection. 2. Progression of areas of left lower lobe and left upper lobe scarring, also again seen with left lower lobe pleural-based loculated air collection. 3. No evidence of pulmonary embolism. Reading Location: [address] Assessment & Plan Assessment/Plan (1) Acute exacerbation of chronic obstructive pulmonary disease: (2) Chronic respiratory failure with hypoxia and hypercapnia: (3) Acidosis, lactic: PLAN: Plan Patient is an 83-year-old male who presented [facility] ED on 05/22/2024 with worsening shortness of breath. 1. COPD exacerbation with concern for community-acquired pneumonia in setting of chronic hypoxic respiratory failure ? Admit under inpatient status to PCU. On home 4 to 5 L nasal cannula at baseline. Mildly hypoxic on home level of oxygen on admit but significant dyspnea both at rest and with exertion noted. CTA chest showed no PE but did show worse bilateral groundglass opacities in comparison to prior chest imaging concerning for viral versus bacterial pneumonia. COVID/flu/RSV negative. Respiratory PCR panel, sputum culture, urine antigens ordered. Procalcitonin ordered. Patient notably has been on prednisone 10 mg daily for the past few years. Will treat with IV steroids, scheduled DuoNebs and IV antibiotics for now. Wean supplemental oxygen as able. Continue other home inhalers. 2. Elevated lactic acid ? Lactate 2.7 on admit. Suspect secondary to hypoxia in setting of COPD exacerbation. Follow-up repeat lactic acid this evening. Chronic medical conditions: ? History of CAD with CABG and stenting, hypertension, hyperlipidemia: Normotensive on admit. Continue home aspirin, statin, Zetia, Lasix, Lopressor. ? Normocytic anemia, history of GI bleed with ABLA: Hemoglobin 10.3 on admit, stable at baseline around 10. Had GI bleed back in September with hemoglobin dropped to below 7 requiring blood transfusion. 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 Continue home PPI. ? BPH with obstructive symptoms: Continue home Flomax. ? Anxiety/depression: Continue home duloxetine and Ativan as needed. ? 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 ? Chronic pain: Continue home oxycodone as needed. ? History of left-sided lung cancer s/p surgical resection DVT prophylaxis: Not indicated, on Eliquis CODE STATUS: DNR CCA, DNI Expected disposition: Home, 2 to 3 days Total clinical time spent by myself addressing the patient's medical issues, reviewing all the data, and collaborating with patient's care team: 55 minutes. Charges/Coding Visit Charges Inpatient E&M: 75785 Init Hosp L2
[2024-05-22] MEDS: Ceftriaxone 2 GM in 0.9% Normal Saline (50mL MB+) 50 ML IV (15:22)
[2024-05-22] MEDS: Azithromycin 500 MG in 0.9% Normal Saline (250mL Bag) 250 ML 255 MG IV (15:38)
[2024-05-22 15:52] LABS: Pro- Brain NATRIURETIC PEPTIDE 741 pg/mL (<=1800)
[2024-05-22 16:19] LABS: Procalcitonin 0.49 ng/mL (<=0.10)
--- NOTE | 2024-05-22 17:46 | NURSING ---
Critical lab result lactic acid of 5.1 sent to [facility] via [facility].
[2024-05-22] MEDS: oxyCODONE 5 MG Tablet PO ×2 (18:08→22:13)
[2024-05-22] MEDS: CLARIFY ORDER NOTE (18:18)
[2024-05-22] MEDS: Acetaminophen 325 MG Tablet 650 MG PO (19:53)
[2024-05-22] MEDS: Metoprolol Tartrate 25 MG Tablet 12.5 MG PO (21:02)
[2024-05-22] MEDS: guaiFENesin 1,200 MG Tablet 1200 MG PO (21:05)
[2024-05-22] MEDS: Senna Tablet 1 TABLET PO (21:05)
[2024-05-22] MEDS: DULoxetine Hcl 30 MG Capsule PO (21:05)
[2024-05-22] MEDS: Tamsulosin HCl 0.4 MG Capsule PO (21:05)
[2024-05-22] MEDS: LORazepam 1 MG Tablet PO (21:05)
[2024-05-22] MEDS: APIXABAN 5 MG TABLET PO (21:05)
[2024-05-22] MEDS: MethylPREDNISolone 125 MG/2 ML Vial 60 MG IV (21:06)
[2024-05-22] MEDS: Atorvastatin Calcium 40 MG Tablet PO (21:06)
[2024-05-22 23:28] LABS: Lactic Acid 4.6 mmol/L (0.0-2.0)
[2024-05-23] VITALS (12 sets, daily range): BP systolic 120–140; BP diastolic 61–76; PULSE 79–96; RESP 16–28; TEMP 36.2–36.9; O2SAT 99–100
[2024-05-23 00:12] LABS: Lactic Acid 2.7 mmol/L (0.0-2.0)
[2024-05-23] MEDS: oxyCODONE 5 MG Tablet PO ×3 (02:56→19:55)
[2024-05-23] MEDS: 0.9% Saline Lock 10 ML Syringe IV ×4 (02:56→19:54)
[2024-05-23 04:50] LABS: Hematocrit 32.5 % (40-54); Hemoglobin 9.9 g/dL (13.0-16.5); Mean Corp Hgb Conc 30.5 g/dL (32-36); Mean Corpuscular Hgb 27.3 pg (27.0-32.0); Mean Corpuscular Volume 89.8 fL (80-94); Mean Platelet Vol. 9.1 fl (6.2-12.0); Platelet Count 219 K/mm3 (150-450); RBC Distribution Width CV 16.3 % (11.6-14.6); RBC Distribution Width SD 53.4 fl (35.1-43.9); Red Blood Count 3.62 M/mm3 (4.6-6.2); White Blood Count 8.6 K/mm3 (4.4-11.0)
[2024-05-23 05:14] LABS: Anion Gap 10 (5-15); BUN 15 mg/dL (4-19); BUN/Creat Ratio 24.8 RATIO (10-20); Calcium,Total 9.2 mg/dL (7.6-11.0); Carbon Dioxide 25.9 mmol/L (21.0-32.0); Chloride 105 mmol/L (98-108); Creatinine, Serum 0.61 mg/dL (0.70-1.20); EST Glomerular Filtration Rate 97 (>60); Estimated Creatinine Clearance 78.56 ml/min (50-250); Glucose 165 mg/dL (70-99); Potassium 4.2 mmol/L (3.3-5.1); Sodium Level 140 mmol/L (133-145)
[2024-05-23] MEDS: MethylPREDNISolone 125 MG/2 ML Vial 60 MG IV ×3 (05:16→20:07)
[2024-05-23] MEDS: Ipratropium/Albuterol Sulfate 3 ML AMPUL.NEB INHALATION ×4 (07:18→19:44)
[2024-05-23 08:05] LABS: Blood Gas Specimen Type VEN
[2024-05-23 08:06] LABS: VBG BASE EXCESS 7 mmol/L (-1.0-3.5); VBG Bicarbonate 32 mmol/L (22-26); VBG PO2 25 mmHg (25-40); VBG SO2 43 % (50-70); VBG pCO2 54.3 mmHg (41-51); VBG pH 7.38 (7.32-7.42)
[2024-05-23 08:07] LABS: O2 Delivery Device Nasal Can; VBG TCO2 34 mmol/L (23-33)
[2024-05-23] MEDS: Aspirin E.C. 81 MG Tablet PO (08:44)
[2024-05-23] MEDS: Metoprolol Tartrate 25 MG Tablet 12.5 MG PO (08:44)
[2024-05-23] MEDS: Ceftriaxone 2 GM in 0.9% Normal Saline (50mL MB+) 50 ML IV (09:50)
[2024-05-23] MEDS: Pantoprazole Sodium 40 MG Tablet PO (09:51)
[2024-05-23] MEDS: Ezetimibe 10 MG Tablet PO (09:51)
[2024-05-23] MEDS: Polyethylene Glycol 3350 17 GM PACKET PO (09:51)
[2024-05-23] MEDS: guaiFENesin 1,200 MG Tablet 1200 MG PO ×2 (09:51→20:01)
[2024-05-23] MEDS: APIXABAN 5 MG TABLET PO ×2 (09:51→20:01)
[2024-05-23] MEDS: Senna Tablet 1 TABLET PO ×2 (09:52→20:00)
[2024-05-23] MEDS: Azithromycin 500 MG in 0.9% Normal Saline (250mL Bag) 250 ML 255 MG IV (09:52)
--- NOTE | 2024-05-23 10:10 | CASEMGMT ---
RN CM Face to Face with patient for initial transition planning/care coordination assessment. RN CM introduced self and role at [facility]. Patient sitting in chair, alert and oriented, at bedside. Patient willing to participate in assessment and is able to answer all questions appropriately. Care providers, pharmacy, and demographics verified. Strata: 3 PCP: Mraia G Specialists: Janice, field underwriter; Lizzy, oncologist; Hossein, urologsit; Rajendra, quality liaison; Pascual Calvillo, public relations manager; Beba, vascular Preferred Pharmacy: [facility] Insurance: [employer] Prescription Benefit: yes Living Will/HPOA: yes, Serenity Corley LNOK: wie, daughter Living Arrangements: Patient lives with in a single story home with one step to enter. Patient is independent at home. Transportation: self, . DME/HHC: Patient has shower chair, raised toilet, cane, walker, grab bars, nebulizer, pulse ox, and home oxygen through [employer] with POC. Patient is active with [facility]. No previous SNF. Will monitor for increase in home oxygen. Patient [facility] to discharge home [facility]. Patient states he has no further needs or concerns at this time. CM to follow for discharge planning needs that may arise. Disposition Plan: Patient to discharge home with [facility], family support, and follow-up plans in place. Raine MESSINA, RN, CM
[2024-05-23] MEDS: LORazepam 1 MG Tablet PO ×2 (10:39→23:31)
--- NOTE | 2024-05-23 10:51 | PCM.PN.HOSP ---
Reason for Visit Reason for Visit: Diagnoses Acidosis, unspecified (05/22/24) Chronic obstructive pulmonary disease with (acute) exacerbation (05/22/24) Chronic respiratory failure with hypoxia (05/22/24) Chronic respiratory failure with hypercapnia (05/22/24) Subjective Subjective Patient was seen and examined today, he is currently on 3 L at rest and appears to be comfortable. I have reviewed his chart, I have decided to change him over to oral antibiotics for suspected pneumonia-I am not absolutely sure the patient has pneumonia, he states that the sputum that he brings up is not any different than what it is normally, he denies any chills or fever at home. Patient's oxygen setting at home is 4 L at rest and 7 L ambulating. Objective Data Objective Data Vital Signs: Vital Signs Temp Pulse Resp BP Pulse Ox O2 Del Method O2 Flow Rate 97.4 F L 88 18 140/76 H 99 Nasal Cannula 3 05/23/24 05:30 05/23/24 08:44 05/23/24 07:19 05/23/24 08:44 05/23/24 07:19 05/23/24 07:19 05/23/24 10:31 Oxygen Flow Rate (L/min) 3 Oxygen Delivery Method Nasal Cannula Weight: 76.7 kg Body Mass Index (BMI) 22.9 Intake & Output: Intake and Output for Last 24 Hours 05/21/24 05/22/24 05/23/24 23:59 23:59 23:59 Intake Total 425 / 425 50 / 50 Output Total 300 / 300 150 / 150 Balance 125 / 125 -100 / -100 Lab / Micro Data 05/23/24 04:26 05/23/24 04:26 Labs: Laboratory Results - last 24 hr 05/22/24 12:38: WBC 13.5 H, RBC 3.73 L, Hgb 10.2 L, Hct 33.4 L, MCV 89.5, MCH 27.3, MCHC 30.5 L, RDW Std Deviation 54.5 H, RDW Coeff of Estelita 16.5 H, Plt Count 197, MPV 8.9, Immature Gran % (Auto) 0.600, Neut % (Auto) 95.5 H, Lymph % (Auto) 1.3 L, Williams % (Auto) 2.4, Eos % (Auto) 0.1, Baso % (Auto) 0.1, Absolute Neuts (auto) 12.9 H, Absolute Lymphs (auto) 0.18 L, Nucleated RBC % 0, Sodium 140, Potassium 4.9, Chloride 102, Carbon Dioxide 26.4, Anion Gap 11, BUN 16, Creatinine 0.75, Estim Creat Clear Calc 78.56, Est GFR (MDRD) Non-Af 91, BUN/Creatinine Ratio 21.8 H, Glucose 180 H, Lactic Acid 2.7 H*, Calcium 9.2, Total Bilirubin 0.50, AST 22, ALT 12, Alkaline Phosphatase 82, NT pro BNP II 741, Total Protein 6.0, Albumin 3.4, Globulin 2.7, Albumin/Globulin Ratio 1.3, Procalcitonin 0.49 H 05/22/24 17:00: Lactic Acid 5.0 H* 05/22/24 21:40: Lactic Acid 4.6 H* 05/23/24 04:26: WBC 8.6, RBC 3.62 L, Hgb 9.9 L, Hct 32.5 L, MCV 89.8, MCH 27.3, MCHC 30.5 L, RDW Std Deviation 53.4 H, RDW Coeff of Estelita 16.3 H, Plt Count 219, MPV 9.1, Sodium 140, Potassium 4.2, Chloride 105, Carbon Dioxide 25.9, Anion Gap 10, BUN 15, Creatinine 0.61 L, Estim Creat Clear Calc 78.56, Est GFR (MDRD) Non-Af 97, BUN/Creatinine Ratio 24.8 H, Glucose 165 H, Calcium 9.2 Micro: Microbiology 05/23/24 03:00 Urine, Clean Catch Legionella Antigen - Final 05/23/24 03:00 Urine, Clean Catch Streptococcus pneumoniae Antigen (M - Final 05/22/24 19:30 Mucosa - Nasopharyngeal Respiratory Panel (PCR) - Final 05/22/24 12:25 Mucosa - Nose SARS-CoV-2, Influenza & RSV (PCR) - Final ABG Data ABG results: ABG 05/22/24 13:09 Specimen Type MARTIN VBG pH 7.38 VBG pO2 25 VBG HCO3 32 H VBG Total CO2 34 H VBG O2 Sat (Calc) 43 L VBG Base Excess 7 H POC Mix VBG pCO2 Pt Tmp 54.3 H O2 Delivery Device Nasal Can Liter Flow 5.0 Radiography Diagnostic Testing: Radiology Impression Chest X-Ray 05/22/24 13:30 IMPRESSION: Prior sternotomy again noted. Persistent left upper and lower lung areas increased density, most probably representing scarring, not clearly changed. Areas of lesser changes are seen of the right, with marked interval improvement in the right lower lung airspace disease compared with the study of 02/19/2024. No new or worsened pneumonic process is seen. Probable small left pleural effusion. No definite right pleural effusion is seen. No pneumothorax is noted. The cardiomediastinal silhouette is stable, without evidence of cardiomegaly. Reading Location: [address] Chest CTA 05/22/24 13:50 IMPRESSION: 1. Although predominantly ground-glass opacities, extensive changes are seen in the right lower lobe, concerning for inflammation/infection. 2. Progression of areas of left lower lobe and left upper lobe scarring, also again seen with left lower lobe pleural-based loculated air collection. 3. No evidence of pulmonary embolism. Reading Location: [address] Physical Exam Const alert, oriented x3, no apparent distress, average body habitus and healthy appearing General Appearance: cooperative, well kempt and well developed Orientation / Consciousness: awake, oriented to person, oriented to place and oriented to time HEENT normocephalic, head/scalp atraumatic and moist oral mucous membranes Eyes PERRL, EOMs intact bilaterally and conjunctivae normal Neck supple, no JVD, thyroid normal and no carotid bruits General: trachea midline Resp normal respiratory effort Resp Narrative: Breath sounds are diminished bilaterally, I did not detect any rales rhonchi or wheezes. Auscultation: Negative for rales, rhonchi or wheezes Cardio regular rate, regular rhythm, no murmurs, no rub and no gallops GI normal to inspection, nondistended, normoactive bowel sounds, soft to palpation, non-tender and non-distended Extremity no clubbing, cyanosis or edema Skin no rashes or lesions noted General Skin Exam: no breakdown Neuro oriented x3, CN's II-XII intact bilaterally, moves all extremities, no focal motor deficits and no sensory deficits noted Sensorium / Orientation: awake and alert Speech: speech normal Psych affect normal Assessment & Plan Assessment/Plan (1) Acute exacerbation of chronic obstructive pulmonary disease: PLAN: Plan 1. Acute exacerbation of chronic obstructive pulmonary disease-patient will remain on aerosol treatments and IV methylprednisolone, pulse ox will be monitored #2 chronic hypoxic respiratory failure-again patient is on 4 L at rest at home and 7 L when ambulating at home. Pulse ox will be monitored here #3 possible atypical pneumonia-patient's CT of the chest showed groundglass opacities in the lung along with left lower lobe and left upper lung scarring, there is no evidence of pulmonary embolism, I have decided to change the patient to oral Levaquin and stop his IV antibiotics at this time #4 coronary artery disease-this appears to be stable at this time #5 use of chronic anticoagulant secondary to past history of PE-patient is on Eliquis Total clinical time spent by myself addressing the patient's medical issues, reviewing all of his data, and collaborating with patient's care team: 35 minutes Charges/Coding Visit Charges Inpatient E&M: 46632 Subs Hosp L2
[2024-05-23] MEDS: ROFLUMILAST 500 MCG TABLET PO (15:08)
[2024-05-23] MEDS: DULoxetine Hcl 30 MG Capsule PO (20:01)
[2024-05-23] MEDS: Atorvastatin Calcium 40 MG Tablet PO (20:01)
[2024-05-23] MEDS: Tamsulosin HCl 0.4 MG Capsule PO (20:01)
[2024-05-23] MEDS: Metoprolol Tartrate 50 MG Tablet PO (20:01)
[2024-05-24] VITALS (7 sets, daily range): BP systolic 124–133; BP diastolic 59–67; PULSE 67–88; RESP 15–18; TEMP 36.4–36.6; O2SAT 91–100
[2024-05-24] MEDS: oxyCODONE 5 MG Tablet PO ×2 (00:07→04:01)
[2024-05-24] MEDS: 0.9% Saline Lock 10 ML Syringe IV ×2 (06:15→14:06)
[2024-05-24] MEDS: MethylPREDNISolone 125 MG/2 ML Vial 60 MG IV ×2 (06:18→14:06)
[2024-05-24] MEDS: Ipratropium/Albuterol Sulfate 3 ML AMPUL.NEB INHALATION ×2 (07:17→10:11)
[2024-05-24] MEDS: Aspirin E.C. 81 MG Tablet PO (08:16)
[2024-05-24] MEDS: Metoprolol Tartrate 50 MG Tablet PO (08:16)
[2024-05-24] MEDS: guaiFENesin 1,200 MG Tablet 1200 MG PO (10:20)
[2024-05-24] MEDS: Pantoprazole Sodium 40 MG Tablet PO (10:21)
[2024-05-24] MEDS: Ezetimibe 10 MG Tablet PO (10:21)
[2024-05-24] MEDS: Senna Tablet 1 TABLET PO (10:21)
[2024-05-24] MEDS: APIXABAN 5 MG TABLET PO (10:21)
[2024-05-24] MEDS: Polyethylene Glycol 3350 17 GM PACKET PO (10:21)
[2024-05-24] MEDS: ROFLUMILAST 500 MCG TABLET PO (10:21)
--- NOTE | 2024-05-24 14:05 | PCM.DC.SUM ---
Providers Date of Admission: 05/22/24 Date of Discharge: 05/24/24 Primary Care Physician: Dr. Dillan Cummins MD Reason For Visit: COPD EXACERBATION Diagnosis Discharge Diagnosis (1) Acute exacerbation of chronic obstructive pulmonary disease: Status: Chronic Code(s): J44.1 - Chronic obstructive pulmonary disease with (acute) exacerbation Medications at Discharge Home Medications nitroglycerin 0.4 mg sublingual tablet 0.4 mg sublingual Q5M PRN Chest Pain 12/29/14 fluticasone propionate 230 mcg-salmeterol 21 mcg/actuation HFA inhaler (Advair HFA) 2 puff inhalation BID breathing 08/07/22 atorvastatin 40 mg tablet 40 mg PO QHS cholesterol 03/25/23 duloxetine 30 mg capsule,delayed release 30 mg PO QPM DEPRESSION 03/25/23 tamsulosin 0.4 mg capsule 0.4 mg PO QPM BLADDER/ PROSTATE 03/25/23 tiotropium bromide 2.5 mcg/actuation mist for inhalation (Spiriva Respimat) 2 puff inhalation DAILY copd 03/25/23 ezetimibe 10 mg tablet 10 mg PO DAILY cholesterol 09/28/23 apixaban 5 mg tablet (Eliquis) 5 mg PO BID blood thinner 10/05/23 albuterol sulfate 90 mcg/actuation aerosol inhaler 2 puff inhalation Q4H PRN wheezing 02/19/24 aspirin 81 mg tablet,delayed release (Enteric Coated Aspirin) 81 mg PO DAILY heart 02/19/24 lorazepam 1 mg tablet 1 mg PO TID anxiety 02/19/24 oxycodone 5 mg tablet 5 mg PO Q4H PRN chronic pain 02/21/24 ondansetron 4 mg disintegrating tablet 4 mg PO DAILY PRN nausea and vomiting 03/30/24 roflumilast 500 mcg tablet 500 mcg PO DAILY 03/30/24 collagenase clostridium histo. 250 unit/gram topical ointment (Santyl) 1 applic topical DAILY 05/22/24 cyclosporine 0.05 % eye drops in a dropperette (Restasis) 1 drp ophthalmic (eye) BID 05/22/24 furosemide 20 mg tablet (Lasix) 20 mg PO DAILY weight gain 05/22/24 guaifenesin 600 mg tablet, extended release 12 hr (Mucinex) 1,200 mg PO BID cough 03/23/25 prednisone 10 mg tablet 10 mg PO DAILY 05/22/24 Held on 05/24/24. Instructions: until taper completed amoxicillin 875 mg-potassium clavulanate 125 mg tablet 1 tab PO BID #10 tabs 05/24/24 metoprolol tartrate 50 mg tablet 50 mg PO BID #60 tabs 05/24/24 prednisone 10 mg tablet 10 mg PO DAILY #36 tabs 05/24/24 Hospital Course Procedures - (Chest x-ray/CTA chest) Summary of Care Provided Minutes Spent on Discharge: 38 Hospital Course: Mr. Corley is an 83-year-old white male with a history of COPD and chronic hypoxic and hypercapnic respiratory failure at baseline 4 to 5 L of oxygen at rest and 7 L with exertion and presented to emergency department at [facility] on 05/22/2024 with worsening of breath. He was last hospitalized in January 2024 with acute exacerbation of COPD and concern for pneumonia. He indicated he recovered well at that time has not been hospitalized since. Patient reported on the day of presentation he had increased shortness of breath since the previous Thursday. He was outside today without issue and symptoms started Thursday morning. He indicated shortness of breath severe enough that he can only walk a few steps without getting severely dyspneic. He denies any any sick contacts. Upon initial evaluation emergency department he was very tachypneic with the rest rate of 40-45 times a minute. Oxygen saturation on 4 L nasal cannula within the mid 80s. Vital signs otherwise were as follows, temperature was 97.4, heart rate 106, blood pressure was 117/59. CBC on presentation showed a white count of 13.5, chronic stable anemia with a hemoglobin of 10.2 and a left shift with 95.5% neutrophilia. A venous blood gas was performed and showed a pH of 7.38. Chemistry panel was performed and showed normal electrolytes, normal renal function, his glucose was elevated at 180 but he is on chronic prednisone and his initial lactic acid was 2.7 with an increase to 5.0 and then a subsequent lactate of 4.6. He did have a series of aerosols I am questioning whether or not his elevated lactate was related to hypoxia initially and then exacerbated by serial aerosols. BNP was 741 and not consistent with heart failure and his procalcitonin was 0.49. Chest x-ray showed previous sternotomy with persistent left upper and lower lung hazy increased density scarring and a probable small left pleural effusion. CTA of the chest was performed and showed ground-glass opacities and extensive changes in the right lower lobe that were concerning for infection versus inflammation as well as progression of areas in the left lower lobe and left upper lobe consistent with scarring and a left lower lobe pleural-based loculated air collection which is chronic. CTA was negative for PE. He was admitted to medical floor and given his significant left shift was placed on community-acquired antibiotics with azithromycin and ceftriaxone. He is also placed on steroids, aerosols and aggressive pulmonary toilet and diuresed some. By 05/24/2024 patient was markedly improved to the point where he only needed 2 L of oxygen at rest with oxygen saturation 99% and 3 L of oxygen with exertion and oxygen saturation of 99%. Blood cultures were negative, COVID/flu/RSV was unremarkable, respiratory viral panel was unremarkable and strep pneumo and Legionella antigens were negative. Given his marked improvement with community-acquired antibiotic coverage and his right lower lobe infiltrate he was discharged on antibiotics with Augmentin to complete a 7-day course. He was also placed on a slow prednisone taper and is to continue his home inhalers at the time of discharge. Of asked him to follow-up with his primary care physician within the next week and he has ongoing follow-up for a left lower extremity wound at the wound center. Patient was able to be discharged home in stable condition on 05/24/2024. 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 Chronic pain History of left-sided lung cancer status postsurgical resection Anxiety Depression History of prostate cancer Left lower extremity leg wound Physical Exam Const alert, oriented x3, average body habitus and no limitations; Negative for no apparent distress, healthy appearing or well nourished Constitutional Narrative: Very pleasant, elderly, white male, sitting up in a chair at the bedside, at bedside, patient appears comfortable, nontoxic, currently on baseline oxygen at 2 L while at rest, no signs of conversational dyspnea and no tachypnea General Appearance: cooperative, comfortable, well kempt and well developed Exam Limitations: no limitations Nutritional Appearance: other Other Details: Normal weight HEENT normocephalic, head/scalp atraumatic and moist oral mucous membranes; Negative for hearing grossly normal bilaterally HEENT Narrative: Dentures in place, Mallampati 2, no thrush, mild hearing loss Eyes EOMs intact bilaterally and conjunctivae normal Eyes Narrative: No scleral icterus Neck supple Neck Narrative: Trachea midline, no thyroid enlargement Resp normal respiratory effort, no retractions, no use of accessory muscles and clear to auscultation bilaterally Resp Narrative: Severely diminished diffusely with no adventitious sounds noted at this time, no tachypnea or signs of extremis Auscultation: Negative for rales, rhonchi or wheezes Cardio regular rate, regular rhythm, S1 normal heart sound, S2 normal heart sound, no murmurs, no rub, no gallops and no clicks GI normal to inspection, nondistended, normoactive bowel sounds, soft to palpation and non-tender Extremity Extremity Narrative: Slight left lower extremity swelling where her wound is in place but chronic in nature, right lower extremity within normal limits, pedal pulses are 2+ bilaterally Skin No no wounds, skin turgor normal, no jaundice, no petechiae and no mottling Skin Narrative: Wound on left lower extremity Neuro oriented x3, moves all extremities and no focal motor deficits Speech: speech normal Psych affect normal Psych Narrative: Extremely pleasant, eye contact is good and patient interacts appropriately Weight / BMI Weight Weight: 76.7 kg Body Mass Index (BMI) 22.9 ABG / Lab / Microbiology Data 05/23/24 04:26 05/23/24 04:26 Microbiology: Microbiology 05/22/24 15:10 Blood Culture (Wb) - Anticubital Left Blood Culture - Preliminary No growth in 48 hours. 05/22/24 15:30 Blood Culture (Wb) - Anticubital Left Blood Culture - Preliminary No growth in 48 hours. 05/23/24 03:00 Urine, Clean Catch Legionella Antigen - Final 05/23/24 03:00 Urine, Clean Catch Streptococcus pneumoniae Antigen (M - Final 05/22/24 19:30 Mucosa - Nasopharyngeal Respiratory Panel (PCR) - Final 05/22/24 12:25 Mucosa - Nose SARS-CoV-2, Influenza & RSV (PCR) - Final D/C Instructions Discharge Diet: Low fat / Low cholesterol Discharge Activity: Return to Normal Activity DC O2, CPAP, BIPAP Needs Home O2 Discharge instructions: Yes Type of respiratory needs?: Oxygen Oxygen frequency: Continuous Continuous oxygen liters per minute: 2 and With Ambulation Oxygen liters per minute during Ambulation: 3 DC home with Oxygen: Yes Home O2 MD Review: I have reviewed the oxygen testing, and the patient qualifies for home oxygen equipment and portability. The patient is mobile in the home and the community. Meaningful Use Info Meaningful Use Meaningful Use Diagnoses (Choose all that apply): None applicable Ischemic Stroke Statin Dosing Therapy Reference: STATIN DOSE THERAPY REFERENCE: * Patients > 75 years receive moderate or high dose statin therapy. * Patients 75 years or YOUNGER should receive HIGH intensity statin dose unless contraindicated. You will be required to document reason for non-treatment if statin daily dose does not meet guidelines. HIGH DOSE STATIN THERAPY DAILY Atorvastatin > than or = to 40 mg Rosuvastatin > than or = to 20 mg Amlodipine + Atorvastatin > than or = to 2.5/40 mg Ezetimibe + Simvastatin 10/80 mg Simvastatin 80mg Discharge Plan Admission Admit Date/Time: 05/22/24 15:14 Primary Reason for Your Visit: Shortness of breath Attending Provider: Malu Steen Primary Care Provider: Dillan Cummins Consulting Providers: Jacob Suazo; Dillan Cortes Instructions Additional Instructions / Restrictions: 1. Please complete entire antibiotic course 2. Please complete prednisone taper and then revert back to your 10 mg daily 3. Please continue to utilize incentive spirometer and Acapella after discharge Discharge Orders/Prescriptions Prescriptions: New metoprolol tartrate 50 mg Tablet 50 mg PO BID Qty: 60 1RF prednisone 10 mg tablet 10 mg PO DAILY Qty: 36 0RF Rx Instructions: 4 tablets x 4 days, 3 tablets x 4 days, 2 tablets x 4 days then restart 10 mg daily from home dosing amoxicillin-pot clavulanate 875-125 mg tablet 1 tab PO BID Qty: 10 0RF Continued fluticasone propion-salmeterol [Advair HFA] 230-21 mcg/actuation HFA aerosol inhaler 2 puff inhalation BID nitroglycerin 0.4 MG tablet 0.4 mg SL Q5M PRN (Reason: Chest Pain) atorvastatin 40 mg tablet 40 mg PO QHS duloxetine 30 mg capsule,delayed release(DR/EC) 30 mg PO QPM tamsulosin 0.4 mg capsule 0.4 mg PO QPM Spiriva Respimat 2.5 mcg/actuation mist 2 puff INHALATION DAILY Rx Instructions: USES AROUND NOON ezetimibe 10 mg tablet 10 mg PO DAILY Eliquis 5 mg tablet 5 mg PO BID lorazepam 1 mg tablet 1 mg PO TID albuterol sulfate 90 mcg/actuation HFA aerosol inhaler 2 puff inhalation Q4H PRN (Reason: wheezing) aspirin [Enteric Coated Aspirin] 81 mg tablet,delayed release (DR/EC) 81 mg PO DAILY oxycodone 5 mg tablet 5 mg PO Q4H PRN ondansetron 4 mg tablet,disintegrating 4 mg PO DAILY PRN (Reason: nausea and vomiting) roflumilast 500 mcg tablet 500 mcg PO DAILY Patient Comments: TAKE 1/2 A PILL FOR 2 WEEKS THEN 1 PILL DAILY. cyclosporine [Restasis] 0.05 % dropperette 1 drp ophthalmic (eye) BID Patient Comments: PT TAKES 3 DROPS TWICE A DAY Santyl 250 unit/gram ointment 1 applic topical DAILY furosemide [Lasix] 20 mg tablet 20 mg PO DAILY guaifenesin [Mucinex] 600 mg tablet extended release 12hr 1,200 mg PO BID Held prednisone 10 mg tablet 10 mg PO DAILY Hold Instructions: until taper completed Discontinued metoprolol tartrate 25 mg Tablet 12.5 mg PO BID Referrals / Follow Up: Dillan Cummins MD [Primary Care Provider] - In 1 Week Disposition Disposition (needs filled in before D/C Order can be placed): Home, Self Care Charges/Coding Visit Charges Inpatient E&M: 04782 Disch Hosp >30min
--- NOTE | 2024-05-24 14:32 | CASEMGMT ---
Patient has order for discharge. RN JOE called [facility] to update regarding discharge, resumption of care planned for . RN CM in to discuss needs at discharge, at bedside. RN CM updated patient regarding [facility] resumption on . Patient and deny further needs at discharge. Patient has portable oxygen for at discharge. Patient and had no further questions. GILMAR DIAZ updated discharge plan.
--- NOTE | 2024-05-24 15:24 | PHA.DC.MC.R ---
Pharmacy [facility] has performed discharge medication reconciliation and counseling for this patient. 1. AUGMENTIN 875MG 1T PO BID X 5 DAYS 2. PREDNISONE 40MG PO DAILY X 4 DAYS, THEN 30MG X 4 DAYS, THEN 20MG X 4 DAYS, THEN RESUME HOME DOSE OF 10MG DAILY 3. METOPROLOL INCREASED TO 50MG The patient's discharge medication list was reviewed for discrepancies and discrepancies were resolved. The patient was counseled on the following discharge medications and changes in medications for homegoing were reviewed. The Reason for Use, instructions for use, and potential side effects were reviewed for all new medications. The patient's questions regarding all of their medications were answered. The patient was able to verbally demonstrate an understanding of their discharge medications. Medications at Discharge Home Medications nitroglycerin 0.4 mg sublingual tablet 0.4 mg sublingual Q5M PRN Chest Pain 12/29/14 fluticasone propionate 230 mcg-salmeterol 21 mcg/actuation HFA inhaler (Advair HFA) 2 puff inhalation BID breathing 08/07/22 atorvastatin 40 mg tablet 40 mg PO QHS cholesterol 03/25/23 duloxetine 30 mg capsule,delayed release 30 mg PO QPM DEPRESSION 03/25/23 tamsulosin 0.4 mg capsule 0.4 mg PO QPM BLADDER/ PROSTATE 03/25/23 tiotropium bromide 2.5 mcg/actuation mist for inhalation (Spiriva Respimat) 2 puff inhalation DAILY copd 03/25/23 ezetimibe 10 mg tablet 10 mg PO DAILY cholesterol 09/28/23 apixaban 5 mg tablet (Eliquis) 5 mg PO BID blood thinner 10/05/23 albuterol sulfate 90 mcg/actuation aerosol inhaler 2 puff inhalation Q4H PRN wheezing 02/19/24 aspirin 81 mg tablet,delayed release (Enteric Coated Aspirin) 81 mg PO DAILY heart 02/19/24 lorazepam 1 mg tablet 1 mg PO TID anxiety 02/19/24 oxycodone 5 mg tablet 5 mg PO Q4H PRN chronic pain 02/21/24 ondansetron 4 mg disintegrating tablet 4 mg PO DAILY PRN nausea and vomiting 03/30/24 roflumilast 500 mcg tablet 500 mcg PO DAILY 03/30/24 collagenase clostridium histo. 250 unit/gram topical ointment (Santyl) 1 applic topical DAILY 05/22/24 cyclosporine 0.05 % eye drops in a dropperette (Restasis) 1 drp ophthalmic (eye) BID 05/22/24 furosemide 20 mg tablet (Lasix) 20 mg PO DAILY weight gain 05/22/24 guaifenesin 600 mg tablet, extended release 12 hr (Mucinex) 1,200 mg PO BID cough 05/22/24 prednisone 10 mg tablet 10 mg PO DAILY 05/22/24 Held on 05/24/24. Instructions: until taper completed amoxicillin 875 mg-potassium clavulanate 125 mg tablet 1 tab PO BID #10 tabs 05/24/24 metoprolol tartrate 50 mg tablet 50 mg PO BID #60 tabs 05/24/24 prednisone 10 mg tablet 10 mg PO DAILY #36 tabs 05/24/24
== END 2024-05-24 15:18 | disposition home health service (06) | DRG 871 ==
LOC: ED 15:06 → PCU 15:38
PROVIDERS: Internal Medicine; Admitting Provider Hospitalist; Emergency Provider Emergency Medicine; PCP Family Medicine; Visit Provider Internal Medicine
DX: A41.9 Sepsis, unspecified organism (principal); J96.21 Acute and chronic respiratory failure with hypoxia; J96.22 Acute and chronic respiratory failure with hypercapnia; E43 Unspecified severe protein-calorie malnutrition; J18.9 Pneumonia, unspecified organism; J44.1 Chronic obstructive pulmonary disease with (acute) exacerbation; E87.20 Acidosis, unspecified; J44.0 Chronic obstructive pulmonary disease with (acute) lower respiratory infection; N13.8 Other obstructive and reflux uropathy; I10 Essential (primary) hypertension; D64.9 Anemia, unspecified; F32.A Depression, unspecified; S81.802A Unspecified open wound, left lower leg, initial encounter; I25.10 Atherosclerotic heart disease of native coronary artery without angina pectoris; E78.5 Hyperlipidemia, unspecified; F41.9 Anxiety disorder, unspecified; Z66 Do not resuscitate; Z99.81 Dependence on supplemental oxygen; J44.89 Other specified chronic obstructive pulmonary disease; Z87.891 Personal history of nicotine dependence; G89.29 Other chronic pain; Z79.82 Long term (current) use of aspirin; Z79.51 Long term (current) use of inhaled steroids; Z86.16 Personal history of COVID-19; Z11.52 Encounter for screening for COVID-19; Z95.5 Presence of coronary angioplasty implant and graft; Z86.718 Personal history of other venous thrombosis and embolism; N40.1 Benign prostatic hyperplasia with lower urinary tract symptoms; R00.0 Tachycardia, unspecified; Z95.1 Presence of aortocoronary bypass graft; Z79.891 Long term (current) use of opiate analgesic; Z79.899 Other long term (current) drug therapy; Z79.52 Long term (current) use of systemic steroids; Z68.22 Body mass index [BMI] 22.0-22.9, adult; Z90.2 Acquired absence of lung [part of]; Z85.118 Personal history of other malignant neoplasm of bronchus and lung; X58.XXXA Exposure to other specified factors, initial encounter; R73.9 Hyperglycemia, unspecified
CPT/HCPCS: 36415; 71046; 71275; 80048; 80053; 82803; 83605; 83880; 84145; 85025; 85027; 87040; 87449; 87631; 87633; 93005; 94640; 94668; 97116; 97162; 97166; 97530; 97802; 99285; Q9967; A4216; J0696

== ENCOUNTER 2024-06-03 14:59 | Inpatient (IN) | payer MEDICARE, BC, SELFPAY ==
[2024-06-03] VITALS (16 sets, daily range): BP systolic 82–125; BP diastolic 51–77; PULSE 72–107; RESP 14–24; TEMP 36.4–36.9; O2SAT 96–100; BMI 22.4; BMI 23.1
--- NOTE | 2024-06-03 15:29 | EKG12_ITS ---
Test Reason : GI BLEED Blood Pressure : */* mmHG Vent. Rate : 95 BPM Atrial Rate : 95 BPM P-R Int : 138 ms QRS Dur : 76 ms QT Int : 314 ms P-R-T Axes : 58 26 -71 degrees QTcB Int : 394 ms Normal sinus rhythm Nonspecific ST and T wave abnormality Abnormal ECG Confirmed by SAHIL SOTO, LINDSEY ([id number]), medical transcription editor YINA HERNANDEZ ([id number]) on 06/06/2024 5:54:02 AM Referred By: Confirmed By: LINDSEY BAXTER MD
--- NOTE | 2024-06-03 15:30 | ED.VIS.GI ---
HPI HPI - GI History of Present Illness Chief Complaint: GI Bleed Informant: patient and spouse/S.O. Narrative Narrative: 83-year-old male presenting for GI bleeding. He states he has had 4 episodes of moderate to severe amounts of bright of blood per rectum today. He had an episode of lightheadedness but no syncope. Denies any significant abdominal pain. No nausea or vomiting associated with this. He states at 1 point earlier he felt a little short of breath but that is better now. Was recently admitted couple weeks ago for COPD exacerbation and treated for pneumonia, he states all that has been doing better. He continues to take Eliquis. [facility] Medical History (Updated 06/03/24 @ 22:[address] Aj Hughes MD) Chronic respiratory failure with hypoxia and hypercapnia COPD exacerbation Angina at rest Pulmonary embolus COVID Fecal occult blood test positive Abnormal chest CT COPD with acute exacerbation Squamous cell carcinoma of left lung Lung mass Depression Myocardial infarct Coronary artery disease Pulmonary neoplasm Wears glasses Wears dentures Cancer Anxiety Abrasion History of steroid therapy Prostate disease High cholesterol Injury of back Syncope History of weight loss Former smoker COPD (chronic obstructive pulmonary disease) On home oxygen therapy Shortness of breath on exertion Chronic cough History of stress test Cardiology follow-up encounter Chest pain No pertinent family history 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 Nocturnal hypoxemia Chronic hypoxemic respiratory failure Bronchiectasis Prostate CA CAD (coronary artery disease) HLD (hyperlipidemia) Benign essential HTN Home Medications ?Medication ?Instructions ?Recorded ?Last Taken ?Type nitroglycerin 0.4 mg sublingual 0.4 mg sublingual Q5M PRN Chest 12/29/14 1 Week Ago History tablet Pain ~07/02/20 fluticasone propionate 230 2 puff inhalation BID breathing 08/07/22 06/03/24 History mcg-salmeterol 21 mcg/actuation HFA inhaler (Advair HFA) atorvastatin 40 mg tablet 40 mg PO QHS cholesterol 03/25/23 06/02/24 History duloxetine 30 mg capsule,delayed 30 mg PO QPM DEPRESSION 03/25/23 06/02/24 History release tamsulosin 0.4 mg capsule 0.4 mg PO QPM BLADDER/ PROSTATE 03/25/23 06/02/24 History tiotropium bromide 2.5 2 puff inhalation DAILY copd 03/25/23 06/03/24 History mcg/actuation mist for inhalation (Spiriva Respimat) ezetimibe 10 mg tablet 10 mg PO DAILY cholesterol 09/28/23 06/02/24 History apixaban 5 mg tablet (Eliquis) 5 mg PO BID blood thinner 10/05/23 06/03/24 History albuterol sulfate 90 mcg/actuation 2 puff inhalation Q4H PRN wheezing 02/19/24 Unknown History aerosol inhaler aspirin 81 mg tablet,delayed 81 mg PO DAILY heart 02/19/24 06/02/24 History release (Enteric Coated Aspirin) lorazepam 1 mg tablet 1 mg PO TID anxiety 02/19/24 06/02/24 History oxycodone 5 mg tablet 5 mg PO Q4H PRN chronic pain 02/21/24 06/03/24 History ondansetron 4 mg disintegrating 4 mg PO DAILY PRN nausea and 03/30/24 05/29/24 History tablet vomiting roflumilast 500 mcg tablet 500 mcg PO DAILY 03/30/24 06/03/24 History collagenase clostridium histo. 250 1 applic topical DAILY 05/22/24 05/21/24 History unit/gram topical ointment (Santyl) Held on 06/03/24. Instructions: Conflicting Appointment furosemide 20 mg tablet (Lasix) 20 mg PO DAILY weight gain 05/22/24 05/21/24 History guaifenesin 600 mg tablet, 1,200 mg PO BID PRN cough 05/22/24 06/03/24 History extended release 12 hr (Mucinex) amoxicillin 875 mg-potassium 1 tab PO BID #10 tabs 05/24/24 Unknown Rx clavulanate 125 mg tablet metoprolol tartrate 50 mg tablet 50 mg PO BID #60 tabs 05/24/24 06/03/24 Rx prednisone 10 mg tablet 10 mg PO DAILY #36 tabs 05/24/24 06/03/24 Rx Allergy/AdvReac Type Severity Reaction Status Date / Time isosorbide (From Imdur) Allergy Other-patient Verified 06/03/24 15:00 blacks out Family History Mother Cancer Father Heart disease COPD (chronic obstructive pulmonary disease) Surgical History (Updated 06/03/24 @ 15:[address] Aj Hughes MD) Hx of CABG Hx of heart artery stent Hx of transurethral resection of prostate Hx of pneumonectomy Hx of CABG Social History household members: spouse Smoking Status: Former smoker Tobacco: How many years used: 45 Electronic Cigarette Use: not used how long ago did patient quit smokin, second hand exposure: Yes alcohol intake: never substance use type: does not use ROS ROS ED Constitutional Constitutional ED: Reports weakness; Denies chills or fever(s) Eyes Eyes: Denies change in vision or diplopia ENT ENT ED: Denies rhinorrhea or sore throat Cardiovascular Cardiovascular: Reports lightheadedness; Denies chest pain, palpitations or syncope Respiratory/Chest Respiratory/Chest: Reports dyspnea; Denies cough Gastrointestinal Gastrointestinal: Reports hematochezia; Denies abdominal pain, diarrhea, melena, nausea or vomiting Genitourinary Genitourinary ED: Denies dysuria or hematuria Musculoskeletal Musculoskeletal: Denies back pain or neck pain Integumentary Denies abscess or rash Neurologic Neurologic: Denies headache(s), paresthesias or weakness Psychiatric Psychiatric: Denies anxiety or suicidal thoughts EXAM Physical Exam Const Vital Signs: 06/03/24 15:00 06/03/24 16:00 06/03/24 17:00 Temperature 97.6 F L 98.4 F Temperature Source Oral Pulse Rate 98 93 92 Respiratory Rate 24 H 23 H 24 H Blood Pressure 95/69 90/57 L 90/64 Blood Pressure Mean 77 68 72 Pulse Ox 96 100 100 Oxygen Delivery Method Room Air Room Air Positive well nourished and well developed General Appearance ED: well developed and NAD HEENT Reports moist mucous membranes normocephalic and atraumatic Eyes PERRL and EOMs intact bilaterally Neck full ROM and supple Resp normal respiratory effort and clear to auscultation bilaterally Effort and Inspection: Negative for respiratory distress Cardio regular rate and regular rhythm GI non-tender and non-distended GI Narrative: On rectal there is trace amount of blood present, there is no active bleeding/pooling. No tenderness. Auscultation: normoactive bowel sounds Palpation: soft Back/Spine no CVA tenderness General Back: other FROM Extremity normal to inspection General Extremety ED: Negative for edema, pulses abnormal or tenderness General Extremity: Negative for edema or pulses abnormal Neuro oriented x3, CN's II-XII intact bilaterally and no sensory deficits noted Sensorium / Orientation: awake and alert Motor Exam: strength 5/5 throughout Psych mental status grossly normal and thought process normal Skin no rashes or lesions noted and no wounds MDM MDM MDM Narrative Medical decision making narrative: I reviewed some prior records on this patient. He was scoped by Dr. 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 Repeat scope the next month everything was better. Patient states he is having bleeding now similar to that time last year. His blood pressure is a little soft but clinically he is doing well and not actively bleeding. Pushed IV fluid bolus while getting his blood counts, chest x-ray, and an EKG. One-view chest x-ray on my interpretation shows chronic abnormalities radiology in agreement these are stable. His EKG shows no acute injury pattern, sinus rhythm on my interpretation, some nonspecific lateral T wave abnormalities. His hemoglobin is 10.2, however this is before getting a liter of IV fluids. Pressures improved after liter of IV fluids. Patient is not actively bleeding and clinically stable, but given his anticoagulation and nature of the bleeding today and history, I think admission indicated. Discussed with Dr. Moreno GI and hospitalist. While in the ED prior to going up to the floor, the patient had sat on bedside commode to have a bowel movement, he had a very small amount of blood, but he had a brief syncopal episode. He did not fall or injure himself, was immediately put back in bed and on the monitor where he was tachycardic, not bradycardic. Therefore probably was due to orthostasis as he had not completed the first half of his IV fluids yet, and less likely to be vasovagal episode. Nursing advised to open the IV fluids and bolus. Patient doing well afterwards and not hypoxic. History & Record Review Additional record(s) reviewed:: Prior inpatient record Lab Data Attestation: I reviewed the patient's lab results. Labs: Laboratory Results - last 24 hr 06/03/24 16:00 WBC 20.3 H RBC 3.81 L Hgb 10.2 L Hct 34.1 L MCV 89.5 MCH 26.8 L MCHC 29.9 L RDW Std Deviation 52.9 H RDW Coeff of Estelita 16.1 H Plt Count 364 MPV 9.6 Immature Gran % (Auto) 1.500 H Neut % (Auto) 91.5 H Lymph % (Auto) 3.2 L [place] % (Auto) 3.7 Eos % (Auto) 0.0 Baso % (Auto) 0.1 Absolute Neuts (auto) 18.5 H Absolute Lymphs (auto) 0.65 L Nucleated RBC % 0 Sodium 139 Potassium 5.2 H Chloride 102 Carbon Dioxide 25.7 Anion Gap 11 BUN 34 H Creatinine 1.10 Estim Creat Clear Calc 55.95 Est GFR (MDRD) Non-Af 67 BUN/Creatinine Ratio 30.8 H Glucose 144 H Calcium 9.0 Blood Type O NEGATIVE Antibody Screen NEGATIVE Crossmatch See Detail Radiography Diagnostic Testing: Clinical Impression(s) from Imaging Studies Chest X-Ray 06/03/24 16:00 IMPRESSION: Stable multifocal airspace opacities, more prominent in the left hemithorax. Emphysema. Reading Location: [facility] [place] Rhythm Strip Rhythm Strip: Sinus Rhythm Rate: 95 Ectopy: None EKG Initial EKG: Attestation: I personally reviewed and interpreted this EKG as follows: Interpretation: Sinus Rhythm, No Acute Injury Pattern and Non-Specific ST Changes Management Discussion w/another healthcare provider: Hospitalist and Earth Science Professor (ZBIGNIEW Moreno-available to evaluate and see) Discharge Plan Dx/Rx/DC Orders Clinical Impression: Acute lower gastrointestinal bleeding, Orthostatic syncope, ABLA (acute blood loss anemia) Disposition Disposition: Acute Care Hospital [facility] Discharge Date/Time: 06/03/24 18:45
[2024-06-03] MEDS: 0.9% Normal Saline (1000mL) 1,000 ML 999 ML IV ×2 (15:54→20:00)
--- NOTE | 2024-06-03 16:00 | RAD_ITS ---
PROCEDURE: CHEST 1 VIEW (PORTABLE) 06/03/2024 REASON FOR EXAM: DYSPNEA, COPD TECHNIQUE: Frontal view of the chest. COMPARISON: CT chest 05/22/2024 FINDINGS: Hardware: Status post median sternotomy. Heart: Heart size is mildly enlarged. Lungs: Stable confluent airspace opacities in the mid to bilateral lower lung zones, more prominent on the left compatible with scarring and atelectasis. Upper lobe predominant emphysema. No pneumothorax. No large pleural effusion. Bones: Degenerative changes are identified within the thoracic spine. Other: RAD/Chest 1 View (Portable) IMPRESSION: Stable multifocal airspace opacities, more prominent in the left hemithorax. Emphysema. Reading Location: [facility]
[2024-06-03 16:23] LABS: Absolute Lymphocyte Count 0.65 X10^3/uL (0.83-4.51); Absolute Neutrophil Count 18.5 X10^3/uL (2.0-7.7); Basophil# 0.03 X10^3/uL; Basophil% 0.1 % (0-1); Hematocrit 34.1 % (40-54); Hemoglobin 10.2 g/dL (13.0-16.5); Lymphocyte # 0.65 X10^3/ul (0.83-4.51); Lymphocyte % 3.2 % (19-41); Mean Corp Hgb Conc 29.9 g/dL (32-36); Mean Corpuscular Hgb 26.8 pg (27.0-32.0); Mean Corpuscular Volume 89.5 fL (80-94); Mean Platelet Vol. 9.6 fl (6.2-12.0); Monocyte# 0.75 X10^3/uL; Monocyte% 3.7 % (0-10); NRBC Flagged by Analyzer 0 % (0-5); Neutrophil # 18.52 X10^3/uL (2.7-7.7); Neutrophil % 91.5 % (47-70); Platelet Count 364 K/mm3 (150-450); RBC Distribution Width CV 16.1 % (11.6-14.6); RBC Distribution Width SD 52.9 fl (35.1-43.9); Red Blood Count 3.81 M/mm3 (4.6-6.2); White Blood Count 20.3 K/mm3 (4.4-11.0)
[2024-06-03 16:49] LABS: Anion Gap 11 (5-15); BUN 34 mg/dL (4-19); BUN/Creat Ratio 30.8 RATIO (10-20); Carbon Dioxide 25.7 mmol/L (21.0-32.0); Chloride 102 mmol/L (98-108); EST Glomerular Filtration Rate 67 (>60); Estimated Creatinine Clearance 55.95 ml/min (50-250); Glucose 144 mg/dL (70-99); Potassium 5.2 mmol/L (3.3-5.1); Sodium Level 139 mmol/L (133-145)
--- NOTE | 2024-06-03 17:16 | HP.PCM.HOS_ITS ---
HPI - General General Date of Admission: 06/03/24 Date of Service: 06/03/24 Chief Complaint: GI bleed HPI Narrative OSWALDO MENDIOLA, is a 83 M with a pMH as outlined including a history of GI bleed who presents via the ED on 06/03/2024 with a complaint of rectal bleeding. He had 4 episodes of rectal bleeding since yesterday. He admitted to lightheadedness and dizziness, but denied any chest pain, palpitations, nausea, vomiting or any other symptoms. Review of systems was otherwise negative. VItals in [facility] ED were BP of 90/64, OK of 92, RR of 24 and temp of 98.4F. HE was saturating at 100% on room air. CBC showed Hb of 10.2, wbc of 20.3 and platelets of 364. CHemistry showed sodium of 139 and potassium of 5.2. Cr is 1.1. Chest x-ray shows stable multifocal airspace opacities more prominent in the left hemithorax. He is being admitted to be managed for acute on chronic anemia due to GI bleed. [facility]LY [facility] Medical History (Updated 06/03/24 @ 15:[address] Aj Hughes MD) Chronic respiratory failure with hypoxia and hypercapnia COPD exacerbation Angina at rest Pulmonary embolus COVID Fecal occult blood test positive Abnormal chest CT COPD with acute exacerbation Squamous cell carcinoma of left lung Lung mass Depression Myocardial infarct Coronary artery disease Pulmonary neoplasm Wears glasses Wears dentures Cancer Anxiety Abrasion History of steroid therapy Prostate disease High cholesterol Injury of back Syncope History of weight loss Former smoker COPD (chronic obstructive pulmonary disease) On home oxygen therapy Shortness of breath on exertion Chronic cough History of stress test Cardiology follow-up encounter Chest pain No pertinent family history 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 Nocturnal hypoxemia Chronic hypoxemic respiratory failure Bronchiectasis Prostate CA CAD (coronary artery disease) HLD (hyperlipidemia) Benign essential HTN Home Medications ?Medication ?Instructions ?Recorded ?Last Taken ?Type nitroglycerin 0.4 mg sublingual 0.4 mg sublingual Q5M PRN Chest 12/29/14 1 Week Ago History tablet Pain ~07/02/20 fluticasone propionate 230 2 puff inhalation BID breat nicho 08/07/22 06/03/24 History mcg-salmeterol 21 mcg/actuation HFA inhaler (Advair HFA) atorvastatin 40 mg tablet 40 mg PO QHS cholesterol 06/02/24 History duloxetine 30 mg capsule,delayed 30 mg PO QPM DEPRESSI ON 03/25/23 06/02/24 History release tamsulosin 0.4 mg capsule 0.4 mg PO QPM BLADDER/ PROST ATE 03/25/23 06/02/24 History tiotropium bromide 2.5 2 puff inhalation DAILY copd 03/25/23 06/03/24 History mcg/actuation mist for inhalation (Spiriva Respimat) ezetimibe 10 mg tablet 10 mg PO DAILY cholesterol 0 09/28/23 06/02/24 History apixaban 5 mg tablet (Eliquis) 5 mg PO BID blood thinn er 10/05/23 06/03/24 History albuterol sulfate 90 mcg/actuation 2 puff inhalation Q 4H PRN wheezing 02/19/24 Unknown History aerosol inhaler aspirin 81 mg tablet,delayed 81 mg PO DAILY heart 01/3106/02/24 History release (Enteric Coated Aspirin) lorazepam 1 mg tablet 1 mg PO TID anxiety 02/19/24 06/02/24 History oxycodone 5 mg tablet 5 mg PO Q4H PRN chronic pain 02/21/24 06/03/24 History ondansetron 4 mg disintegrating 4 mg PO DAILY PRN naus ea and 03/30/24 05/29/24 History tablet vomiting roflumilast 500 mcg tablet 500 mcg PO DAILY 03/30/24 0 06/03/24 History collagenase clostridium histo. 250 1 applic topical DA KAREN 05/22/24 05/21/24 History unit/gram topical ointment (Santyl) Held on 06/03/24. Instructions: Conflicting Appointment furosemide 20 mg tablet (Lasix) 20 mg PO DAILY weight gain 05/22/24 05/21/24 History guaifenesin 600 mg tablet, 1,200 mg PO BID PRN cough 0 05/22/24 06/03/24 History extended release 12 hr (Mucinex) amoxicillin 875 mg-potassium 1 tab PO BID #10 tabs Unknown Rx clavulanate 125 mg tablet metoprolol tartrate 50 mg tablet 50 mg PO BID #60 tabs 05/24/24 06/03/24 Rx prednisone 10 mg tablet 10 mg PO DAILY #36 tabs 05/0106/03/24 Rx Allergy/AdvReac Type Severity Reaction Status Date / Time isosorbide (From Imdur) Allergy Other-patient Verified 06/03/24 15:00 blacks out Family History Mother Cancer Father Heart disease COPD (chronic obstructive pulmonary disease) Surgical History (Updated 06/03/24 @ 15:[address] Aj Hughes MD) Hx of CABG Hx of heart artery stent Hx of transurethral resection of prostate Hx of pneumonectomy Hx of CABG Social History household members: spouse Smoking Status: Former smoker Tobacco: How many years used: 45 Electronic Cigarette Use: not used how long ago did patient quit smokin, second hand exposure: Yes alcohol intake: never substance use type: does not use ROS Constitutional Constitutional: Reports malaise and weakness; Denies anorexia, chills, fatigue or fever(s) Eyes Eyes: Denies change in vision ENT HEENT: Denies dysphagia, headache(s) or sore throat Cardiovascular Cardiovascular: Denies chest pain, dyspnea on exertion, edema, lightheadedness, orthopnea, palpitations, paroxysmal nocturnal dyspnea, rapid heart rate or syncope Respiratory/Chest Respiratory/Chest: Denies cough, dyspnea, shortness of breath at rest or shortness of breath with exertion Gastrointestinal Gastrointestinal: Reports hematochezia and loose stools; Denies abdominal pain, constipation, dyspepsia, hematemesis, melena, nausea or vomiting Genitourinary Genitourinary: Denies dysuria Musculoskeletal Musculoskeletal: Denies arthralgias Neurologic Neurologic: Denies confusion, dizziness, focal weakness, headache(s), numbness, seizure-like activity, seizures or syncope Psychiatric Psychiatric: Denies anxiety or depression Hematologic/Lymphatic Hematologic/Lymphatic: Reports anemia Vital Signs Vital Signs Vital Signs: 06/03/24 15:00 06/03/24 16:00 06/03/24 17:00 Temperature 97.6 F L 98.4 F Temperature Source Oral Pulse Rate 98 93 92 Respiratory Rate 24 H 23 H 24 H Blood Pressure 95/69 90/57 L 90/64 Blood Pressure Mean 77 68 72 Pulse Ox 96 100 100 Oxygen Delivery Method Room Air Room Air Weight Weight: 165 lb 9.074 oz Body Mass Index (BMI) 22.4 Physical Exam Const alert, oriented x3 and no apparent distress General Appearance: cooperative HEENT normocephalic, head/scalp atraumatic, hearing grossly normal bilaterally and moist oral mucous membranes Mouth: oral and palatal mucosa normal Eyes PERRL, EOMs intact bilaterally and conjunctivae normal Neck no lymphadenopathy and supple Resp normal respiratory effort, no retractions, no use of accessory muscles and clear to auscultation bilaterally Cardio regular rate, regular rhythm, S1 normal heart sound, S2 normal heart sound and no murmurs GI normal to inspection, nondistended, normoactive bowel sounds, soft to palpation, non-tender and non-distended Extremity normal to inspection, full ROM and no clubbing, cyanosis or edema Neuro oriented x3, CN's II-XII intact bilaterally, moves all extremities and no focal motor deficits Sensorium / Orientation: awake and alert Motor Exam: strength 5/5 throughout Psych affect normal Results Lab / Micro Data 06/03/24 16:00 06/03/24 16:00 Labs: Laboratory Results - last 24 hr 06/03/24 16:00: WBC 20.3 H, RBC 3.81 L, Hgb 10.2 L, Hct 34.1 L, MCV 89.5, MCH 26.8 L, MCHC 29.9 L, RDW Std Deviation 52.9 H, RDW Coeff of [place] 16.1 H, Plt Count 364, MPV 9.6, Immature Gran % (Auto) 1.500 H, Neut % (Auto) 91.5 H, Lymph % (Auto) 3.2 L, [place] % (Auto) 3.7, Eos % (Auto) 0.0, Baso % (Auto) 0.1, Absolute Neuts (auto) 18.5 H, Absolute Lymphs (auto) 0.65 L, Nucleated RBC % 0, Sodium 139, Potassium 5.2 H, Chloride 102, Carbon Dioxide 25.7, Anion Gap 11, BUN 34 H, Creatinine 1.10, Estim Creat Clear Calc 55.95, Est GFR (MDRD) Non-Af 67, B UN/Creatinine Ratio 30.8 H, Glucose 144 H, Calcium 9.0, Blood Type O NEGATIVE, Antibody Screen NEGATIVE Rhythm Strip Rhythm Strip: Sinus Rhythm Rate: 95 Ectopy: None Imaging Radiology Impression Chest X-Ray 06/03/24 16:00 IMPRESSION: Stable multifocal airspace opacities, more prominent in the left hemithorax. Emphysema. Reading Location: [facility] Assessment & Plan Assessment/Plan (1) Acute lower gastrointestinal bleeding: PLAN: Plan #Acute lower GI bleed likely due to bleeding diverticula * Admit for 1 day prior to admission. [facility]. He was admitted with a complaint of lower GI bleed and had had about 4 episodes of sarika red blood per rectum * Patient had a similar lower GI bleed in October [address] angiogram of the abdomen and pelvis to rule out any small bowel bleeding. 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 He also had EGD which showed normal esophagus and small hiatal hernia and no gross lesions in the fourth portion of the duodenum and colonoscopy showed diverticulosis in the entire examined colon. * Keep NPO. Hydrate with IV fluids. Type and cross transfuse if hemoglobin drops to less than 7. Consult gastroenterology. #Chronic respiratory failure due to COPD * Stable. On 4 L of oxygen which is his baseline. Breathing treatments bronchodilators. #History of chronic aortic mural thrombus: On Eliquis. Will hold this for now due to GI bleed #History of esophageal candidiasis: Fluconazole #History of lung cancer * Has known squamous cell carcinoma of the left lower lobe. Currently stable. #History of anxiety and depression: On Cymbalta DVT prophylaxis: SCDs CODE STATUS: DNRCCA no intubation * Patient counseled extensively about different types of CODE STATUS including full code, DNR CCA and DNR CCA. * Patient elects to be DNRCCA no intubation. * Total [id number] time 16 minutes. Charges/Coding Visit Charges Inpatient E&M: 65222 Init Hosp L3 Procedures Hospitalists Procedures: 81016 Advncd Care Plan 30 Min
--- NOTE | 2024-06-03 18:50 | NURSING ---
pt has not arrived to unit at this time
[2024-06-03] MEDS: 0.9% Normal Saline (1000mL) 1,000 ML 125 ML IV (19:04)
[2024-06-03] MEDS: Pantoprazole Sodium 40 MG in 0.9% Normal Saline (100mL MB+) 100 ML 330 MG IV (19:04)
[2024-06-03] MEDS: Ipratropium/Albuterol Sulfate 3 ML AMPUL.NEB INHALATION (19:26)
[2024-06-03] MEDS: Budesonide Respules 0.5 MG/2 ML AMPUL.NEB. INHALATION (19:26)
[2024-06-03] MEDS: oxyCODONE 5 MG Tablet PO (19:35)
[2024-06-03] MEDS: Acetaminophen 325 MG Tablet 650 MG PO (19:36)
[2024-06-03 19:50] LABS: Absolute Lymphocyte Count 0.73 X10^3/uL (0.83-4.51); Absolute Neutrophil Count 15.4 X10^3/uL (2.0-7.7); Basophil# 0.02 X10^3/uL; Basophil% 0.1 % (0-1); Hematocrit 28.1 % (40-54); Hemoglobin 8.4 g/dL (13.0-16.5); Lymphocyte # 0.73 X10^3/ul (0.83-4.51); Lymphocyte % 4.2 % (19-41); Mean Corp Hgb Conc 29.9 g/dL (32-36); Mean Corpuscular Hgb 27.3 pg (27.0-32.0); Mean Corpuscular Volume 91.2 fL (80-94); Mean Platelet Vol. 9.3 fl (6.2-12.0); Monocyte# 0.94 X10^3/uL; Monocyte% 5.4 % (0-10); NRBC Flagged by Analyzer 0.1 % (0-5); Neutrophil # 15.35 X10^3/uL (2.7-7.7); Neutrophil % 88.7 % (47-70); Platelet Count 277 K/mm3 (150-450); RBC Distribution Width CV 16.2 % (11.6-14.6); RBC Distribution Width SD 53.1 fl (35.1-43.9); Red Blood Count 3.08 M/mm3 (4.6-6.2); White Blood Count 17.3 K/mm3 (4.4-11.0)
--- NOTE | 2024-06-03 20:09 | PCM.HOSP.N ---
Hospitalist Note Patient per discussion with Dr. Santamaria with syncopal event in the ED prior to floor transition. She had requested repeat STAT HH which is now resulting 8.4, patient orthostatic. Will release held blood. IVF bolus currently running and BP improved from prior. Will place on telemetry.
[2024-06-03] MEDS: 0.9% Normal Saline (250mL Bag) 250 ML 15 ML IV (20:28)
[2024-06-03] MEDS: LORazepam 1 MG Tablet PO (21:52)
[2024-06-03] MEDS: Tamsulosin HCl 0.4 MG Capsule PO (21:52)
[2024-06-03] MEDS: Atorvastatin Calcium 40 MG Tablet PO (21:53)
[2024-06-03] MEDS: Ezetimibe 10 MG Tablet PO (21:53)
[2024-06-03] MEDS: DULoxetine Hcl 30 MG Capsule PO (21:53)
[2024-06-03] MEDS: Metoprolol Tartrate 50 MG Tablet PO (21:56)
[2024-06-04] VITALS (22 sets, daily range): BP systolic 93–138; BP diastolic 48–72; PULSE 55–105; RESP 16–24; TEMP 36.2–36.6; O2SAT 93–100
[2024-06-04 03:15] LABS: Absolute Lymphocyte Count 0.66 X10^3/uL (0.83-4.51); Absolute Neutrophil Count 11.8 X10^3/uL (2.0-7.7); Basophil# 0.01 X10^3/uL; Basophil% 0.1 % (0-1); Eosinophil# 0.01 X10^3/uL; Eosinophils% 0.1 % (0-5); Hematocrit 29.3 % (40-54); Hemoglobin 9.2 g/dL (13.0-16.5); Lymphocyte # 0.66 X10^3/ul (0.83-4.51); Lymphocyte % 4.9 % (19-41); Mean Corp Hgb Conc 31.4 g/dL (32-36); Mean Corpuscular Hgb 27.5 pg (27.0-32.0); Mean Corpuscular Volume 87.7 fL (80-94); Mean Platelet Vol. 8.8 fl (6.2-12.0); Monocyte# 0.89 X10^3/uL; Monocyte% 6.6 % (0-10); NRBC Flagged by Analyzer 0.1 % (0-5); Neutrophil # 11.82 X10^3/uL (2.7-7.7); Neutrophil % 87.2 % (47-70); Platelet Count 186 K/mm3 (150-450); RBC Distribution Width CV 16.4 % (11.6-14.6); RBC Distribution Width SD 52.3 fl (35.1-43.9); Red Blood Count 3.34 M/mm3 (4.6-6.2); White Blood Count 13.5 K/mm3 (4.4-11.0)
[2024-06-04 03:39] LABS: Anion Gap 8 (5-15); BUN 39 mg/dL (4-19); BUN/Creat Ratio 38.3 RATIO (10-20); Calcium,Total 7.7 mg/dL (7.6-11.0); Carbon Dioxide 23.5 mmol/L (21.0-32.0); Chloride 108 mmol/L (98-108); Creatinine, Serum 1.03 mg/dL (0.70-1.20); EST Glomerular Filtration Rate 73 (>60); Estimated Creatinine Clearance 59.67 ml/min (50-250); Glucose 124 mg/dL (70-99); Potassium 4.7 mmol/L (3.3-5.1); Sodium Level 139 mmol/L (133-145)
[2024-06-04] MEDS: Menthol/Lanolin/Calamine/Znox 113 GM Tube 1 APPLIC TOPICAL (10:25)
[2024-06-04] MEDS: 0.9% Normal Saline (1000mL) 1,000 ML 125 ML IV (10:25)
[2024-06-04] MEDS: Acetaminophen 325 MG Tablet 650 MG PO ×2 (10:26→17:37)
[2024-06-04] MEDS: Pantoprazole Sodium 40 MG in 0.9% Normal Saline (100mL MB+) 100 ML 330 MG IV ×2 (10:26→21:05)
[2024-06-04] MEDS: oxyCODONE 5 MG Tablet PO ×2 (10:27→17:37)
--- NOTE | 2024-06-04 11:24 | PN.HOSP_ITS ---
Reason for Visit Reason for Visit: Diagnoses Gastrointestinal hemorrhage, unspecified (06/03/24) Subjective Subjective Saw patient at bedside this morning, present. Patient was sitting back comfortably in bedside chair, conversing normally, in no acute distress. Noted that he has not had any bowel movement since late last night. He generally feels well this morning, denies any significant fatigue. No other new concerns today. Objective Data Objective Data Vital Signs: Vital Signs Temp Pulse Resp BP Pulse Ox O2 Del Method O2 Flow Rate 97.5 F L 67 19 H 112/67 98 Nasal Cannula 4 06/04/24 10:04 06/04/24 11:04 06/04/24 10:04 06/04/24 10:04 06/04/24 11:05 06/04/24 11:05 06/04/24 11:05 Oxygen Flow Rate (L/min) 4 Oxygen Delivery Method Nasal Cannula Weight: 75 kg Body Mass Index (BMI) 23.1 Intake & Output: Intake and Output for Last 24 Hours 06/02/24 06/03/24 06/04/24 23:59 23:59 23:59 Intake Total 2211.17 / 2211.17 1810.58 / 1810.58 Output Total 400 / 400 Balance 2211.17 / 2211.17 1410.58 / 1410.58 Lab / Micro Data 06/04/24 03:02 06/04/24 03:02 Labs: Laboratory Results - last 24 hr 06/03/24 16:00: WBC 20.3 H, RBC 3.81 L, Hgb 10.2 L, Hct 34.1 L, MCV 89.5, MCH 26.8 L, MCHC 29.9 L, RDW Std Deviation 52.9 H, RDW Coeff of Estelita 16.1 H, Plt Count 364, MPV 9.6, Immature Gran % (Auto) 1.500 H, Neut % (Auto) 91.5 H, Lymph % (Auto) 3.2 L, [place] % (Auto) 3.7, Eos % (Auto) 0.0, Baso % (Auto) 0.1, Absolute Neuts (auto) 18.5 H, Absolute Lymphs (auto) 0.65 L, Nucleated RBC % 0, Sodium 139, Potassium 5.2 H, Chloride 102, Carbon Dioxide 25.7, Anion Gap 11, BUN 34 H, Creatinine 1.10, Estim Creat Clear Calc 55.95, Est GFR (MDRD) Non-Af 67, B UN/Creatinine Ratio 30.8 H, Glucose 144 H, Calcium 9.0, Blood Type O NEGATIVE, Antibody Screen NEGATIVE, Crossmatch See Detail 06/03/24 19:40: WBC 17.3 H, RBC 3.08 L, Hgb 8.4 L, Hct 28.1 L, MCV 91.2, MCH 27.3, MCHC 29.9 L, RDW Std Deviation 53.1 H, RDW Coeff of Estelita 16.2 H, Plt Count 277, MPV 9.3, Immature Gran % (Auto) 1.600 H, Neut % (Auto) 88.7 H, Lymph % (Auto) 4.2 L, [place] % (Auto) 5.4, Eos % (Auto) 0.0, Baso % (Auto) 0.1, Absolute Neuts (auto) 15.4 H, Absolute Lymphs (auto) 0.73 L, Nucleated RBC % 0.1 06/04/24 03:02: WBC 13.5 H, RBC 3.34 L, Hgb 9.2 L, Hct 29.3 L, MCV 87.7, MCH 27.5, MCHC 31.4 L D, RDW Std Deviation 52.3 H, RDW Coeff of [place]el[place] 16.4 H, Plt Count 186, MPV 8.8, Immature Gran % (Auto) 1.100 H, Neut % (Auto) 87.2 H, Lymph % (Auto) 4.9 L, [place] % (Auto) 6.6, Eos % (Auto) 0.1, Baso % (Auto) 0.1, Absolute Neuts (auto) 11.8 H, Absolute Lymphs (auto) 0.66 L, Nucleated RBC % 0.1, Sodium 139, Potassium 4.7, Chloride 108, Carbon Dioxide 23.5, Anion Gap 8, BUN 39 H, Creatinine 1.03, Estim Creat Clear Calc 59.67, Est GFR (MDRD) Non-Af 73, B UN/Creatinine Ratio 38.3 H, Glucose 124 H, Calcium 7.7 Radiography Diagnostic Testing: Radiology Impression Chest X-Ray 06/03/24 16:00 IMPRESSION: Stable multifocal airspace opacities, more prominent in the left hemithorax. Emphysema. [facility] Rhythm Strip Rhythm Strip: Sinus Rhythm Rate: 95 Ectopy: None Physical Exam Const alert, oriented x3, no apparent distress and average body habitus Constitutional Narrative: Pleasant elderly male, sitting back comfortably in bedside chair, conversing normally, in no acute distress. General Appearance: cooperative and comfortable HEENT normocephalic, head/scalp atraumatic, hearing grossly normal bilaterally, nasal mucous membranes and turbinates normal and moist oral mucous membranes Eyes PERRL, EOMs intact bilaterally and conjunctivae normal Neck full ROM Chest inspection of chest normal Resp normal respiratory effort and no use of accessory muscles Resp Narrative: Breathing comfortably on home 4 L nasal cannula at rest. No wheezing or crackles noted. Cardio regular rate, regular rhythm, no murmurs and peripheral pulses 2+ throughout GI normal to inspection, nondistended, normoactive bowel sounds, soft to palpation, non-tender and non-distended Back/Spine normal ROM Extremity normal to inspection, full ROM and no pedal edema Skin no rashes or lesions noted Neuro moves all extremities and no focal motor deficits Speech: speech normal Motor Exam: strength 5/5 throughout Psych mental status grossly normal Assessment & Plan Assessment/Plan (1) Acute lower gastrointestinal bleeding: (2) ABLA (acute blood loss anemia): PLAN: Plan Patient is an 83-year-old male who presented to [facility] ED on 06/24 with bright red blood per rectum. 1. Acute lower GI bleed with acute blood loss anemia in setting of chronic normocytic anemia ? GI following. Presented with 4 episodes of sarika bright red blood per rectum. Hemoglobin 10.2 on admit (baseline), dropped to 8.4 only 4 hours after that so patient was given 2 units of blood. Also given IV fluids at that time. Most recent hemoglobin 9.2 on 06/04. 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 Planning for EGD today and if negative, may need colonoscopy tomorrow. Continue IV PPI twice daily for now. Holding home Eliquis and aspirin. Monitor CBC daily. 2. Leukocytosis ? WBC count elevated to 20 on admit. Suspected secondary to acute stress state in setting of GI bleed. Improving, most recent WBC count 13 on 06/04. Continue to monitor CBC daily. Hold on antibiotics at this time. 3. History of chronic aortic mural thrombus, history of VTE ? Holding home Eliquis as above. Patient only remembers 1 episode of PE in the past. Follows with a Dr. Rajan for this. Will need to discuss whether to stop blood thinners on discharge depending on findings of scopes. 4. COPD with chronic respiratory failure ? Stable on home 4 L nasal cannula at rest, not in acute exacerbation. Notably was hospitalized in late April for acute exacerbation and improved back to his baseline with treatment for COPD exacerbation. Continue home inhalers. Chronic medical conditions: ? History of CAD with CABG and stenting, hypertension, hyperlipidemia: Normotensive on admit. Continue home statin, Zetia, Lasix, Lopressor. Holding aspirin. ? BPH with obstructive symptoms: Continue home Flomax. ? Anxiety/depression: Continue home duloxetine and Ativan as needed. ? Chronic pain: Continue home oxycodone as needed. ? History of left-sided lung cancer s/p surgical resection DVT prophylaxis: SCDs CODE STATUS: DNR CCA, DNI Expected disposition: Home, 2 to 3 days Total clinical time spent by myself addressing the patient's medical issues, reviewing all the data, and collaborating with patient's care team: 35 minutes. Charges/Coding Visit Charges Inpatient E&M: 00792 Subs Hosp L2
--- NOTE | 2024-06-04 11:40 | CASEMGMT ---
GILMAR DIAZ chart review: Patient was admitted 05/22-05/24/24 for COPD exacerbation. See GILMAR DIAZ Assessment from 05/23/24. Patient was discharged to home with resumption of [facility], baseline home oxygen of 4lpm at rest and 7lpm with ambulation, famiy support, and follow-up plans in place. Patient returned to [facility] ED on 06/03/24 for LGIB after having 4 bloody bowel movements at home. Patient was admitted and GI consulted. GILMAR DIAZ in to discuss readmission and discharge planning, at bedside. Patient states he was taking medications as prescribed and attended follow-up appt with poker manager. Patient state [facility] had resumed and was doing well at home. Patient wishes to return home with resumption of [facility]. Patient had no further questions or concerns. CM will continue to follow this patient and plan for a safe discharge. Green sheet placed on chart for HHC resumption.
[2024-06-04] MEDS: Budesonide Respules 0.5 MG/2 ML AMPUL.NEB. INHALATION ×2 (12:31→18:59)
[2024-06-04] MEDS: Ipratropium/Albuterol Sulfate 3 ML AMPUL.NEB INHALATION ×2 (12:31→17:49)
--- NOTE | 2024-06-04 12:49 | PCM.PRE.AN2 ---
ASA Classification* ASA Classification ASA Classification: 3 and E Assessment & Plan Anesthesia* Anesthesia Assessment Anesthesia Assessment: Discussed sedation and/or anesthesia options, risks, benefits, and alternatives with patient/parents/legal guardian/POA. Questions invited. The patient/parents/legal guardian/POA seems to understand and agrees to proceed with anesthesia plan. Reviewed the physical assessment, medical history, allergy history and patient home medications list prior to surgery/procedure/anesthetic and documented any changes. Performed airway and anesthesia risk assessments. Procedural Plan Add'l anesthesia plan details: MAC for egd Anesthesia Type Anesthesia Type: MAC History Source History Obtained from:: Chart Anesthesia Focused Assessment* Temperature: 97.5 F Pulse Rate: 89 Blood Pressure: 112/67 Respiratory Rate: 20 Pulse Ox: 98 Oxygen Flow Rate (L/min): 4 Airway Assessment Mouth opens: >3 cm Mallampati Score: II Focused Labs Anesthesia Preop lab: CBC WBC 13.5 K/mm3 (4.4-11.0) H 06/04/24 03:02 06/04/24 RBC 3.34 M/mm3 (4.6-6.2) L 06/04/24 03:02 06/04/24 Hgb 9.2 g/dL (13.0-16.5) L 06/04/24 03:02 06/04/24 Hct 29.3 % (40-54) L 06/04/24 03:02 06/04/24 Plt Count 186 K/mm3 (150-450) 06/04/24 03:02 06/04/24 CHEMISTRY Potassium 4.7 mmol/L (3.3-5.1) 06/04/24 03:02 06/04/24 Sodium 139 mmol/L (133-145) 06/04/24 03:02 06/04/24 Magnesium 2.3 mg/dL (1.6-2.6) 02/19/24 18:57 02/19/24 Phosphorus 6.8 mg/dL (2.5-4.9) H 10/07/23 05:10 10/07/23 BUN 39 mg/dL (4-19) H 06/04/24 03:02 06/04/24 Creatinine 1.03 mg/dL (0.70-1.20) 06/04/24 03:02 06/04/24 Glucose 124 mg/dL (70-99) H 06/04/24 03:02 06/04/24 POC Glucose 115 mg/dL (74-106) H 10/05/23 21:35 10/05/23 COAG PT 13.8 SECONDS (11.7-14.9) 09/29/23 04:00 09/29/23 Pre-Assessment Diagnosis/Proposed Procedure Planned Operative Procedure(s): EGD Anesthesia History Anesthesia 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 When Was Last Pacemaker Check QUESTION #4 FULL TEXT: You/Your Family Experience fever (hyperthermia) with Anesthesia Last Oral Intake Last Oral intake: Last Oral Intake NPO since Meds taken in AM with sips of water? Meds patient instructed to take am of surgery PONV PONV - arboreal scientist: PONV - arboreal scientist Female HX of Motion Sickness HX of N/V After Surgery Non-Smoker Duration of Surgery greater than 60 minutes Number of Risk Factors PONV Score Height & Weight Height & Weight: Anesthesia: Height & Weight Height 5 ft 11 in 06/04/24 10:33 Weight: 75 kg 06/04/24 10:33 Body Mass Index (BMI) 23.1 06/03/24 19:15 Respiratory Assessment Respiratory Assessment - arboreal scientist: Respiratory Tract Infection Hx - arboreal scientist Hx Respiratory Tract Infection Yes: covid 10 days ago 10/07/23 04:41 STOP Sleep Apnea STOP Sleep Apnea - arboreal scientist: STOP Sleep Apnea - arboreal scientist Hx Hypertension No 06/04/24 09:42 Hx Sleep Apnea No 06/03/24 19:15 CPAP No 06/03/24 19:15 BIPAP No 06/03/24 19:15 Do you snore loudly (louder No 06/03/24 19:15 than talking or can be heard Do you often feel tired/ Yes 06/03/24 19:15 fatigued/ sleepy during daytime? Has anyone observed you stop No 06/03/24 19:15 breathing during sleep? STOP Results Negative 06/03/24 19:15 QUESTION #5 FULL TEXT : Do you snore loudly (louder than talking or can be heard through closed doors)? Tobacco Use History Tobacco Use History - arboreal scientist: Tobacco Use History - arboreal scientist Tobacco Use Non-smoker 07/09/20 19:04 Smoking Status Former smoker 06/03/24 19:15 Hx Tobacco Use No 06/03/24 19:15 Years Smoking Packs Smoked per Day Smoking Cessation Date was No - quit smoking greater 06/03/24 19:15 within the last 15 years than 15 years ago Hx Smoking Cessation Date 07/10/99 06/03/24 19:15 Hx Smoking Cessation No 06/03/24 19:15 Counseling Hematologic Medial History Hematologic Hx - arboreal scientist: Hematologic Medical Hx - check viewer Hx of Blood Transfusion Yes 06/03/24 19:15 Hx of Transfusion in last 3 No 06/03/24 19:15 Months Date of Last Transfusion (if within last 3 months) Ever experience any problems No 06/03/24 19:15 with transfusion(s)? Specify any problems Hx of Preganancy in last 3 N/A 06/03/24 19:15 Months Nurse Filling Out Transfusion EVIZZO 06/03/24 19:15 & Questions: Date: 06/03/24 06/03/24 19:15 Time: 19:54 06/03/24 19:15 Patient unable to answer at this time (ie. confused, unrespo /Reproduction History /Reproductive History - arboreal scientist: /Reproductive Hx- arboreal scientist Hx Now Gestational Age (in weeks): EDC: Hx Hx Para Hx Section SAB No 08/13/20 08:35 Active Medications Active Medications: Current Medications Generic Name Dose Route Start Last Admin Trade Name Freq PRN Reason Stop Dose Admin Acetaminophen 650 mg 06/03/24 18:24 06/04/24 10:26 Acetaminophen 325 Mg Tablet PO 650 mg Q6H PRN PRN Administration Pain 1-10 Or Fever >100.7 Albuterol Sulfate 2.5 mg 06/03/24 18:27 Albuterol 2.5 Mg/3 Ml Vial.Neb. INHALATION Q4H PRN wheezing Albuterol/Ipratropium 3 ml 06/03/24 18:35 06/04/24 12:31 Ipratropium/Albuterol Sulfate 3 Ml Ampul.Neb INHALATION 3 ml Q6HWA.RT YAZAN Administration Atorvastatin Calcium 40 mg 06/03/24 22:00 06/03/24 21:53 Atorvastatin Calcium 40 Mg Tablet PO 40 mg QHS YAZAN Administration Budesonide 0.5 mg 06/03/24 18:35 06/04/24 12:31 Budesonide Respules 0.5 Mg/2 Ml Ampul.Neb. INHALATION 0.5 mg Q12H.RT YAZAN Administration Calamine/Phenol 1 applic 06/04/24 10:00 06/04/24 10:25 Menthol/Lanolin/Calamine/Znox 113 Gm Tube TOPICAL 1 applic BID YAZAN Administration Protocol Duloxetine HCl 30 mg 06/03/24 21:00 06/03/24 21:53 Duloxetine Hcl 30 Mg Capsule PO 30 mg QPM YAZAN Administration Ezetimibe 10 mg 06/03/24 22:00 06/03/24 21:53 Ezetimibe 10 Mg Tablet PO 10 mg QHS YAZAN Administration Guaifenesin 1,200 mg 06/03/24 18:24 Guaifenesin 1,200 Mg Tablet PO BID PRN cough Pantoprazole Sodium 40 mg/ 110 mls @ 330 mls/hr 06/03/24 18:24 06/04/24 10:52 Sodium Chloride IV Infused Q12 YAZAN Infusion Sodium Chloride 100 mls @ 15 mls/hr 06/03/24 19:37 IV .Q6H40M PRN Saline Flush Sodium Chloride 100 mls @ 15 mls/hr 06/03/24 19:37 IV .Q6H40M PRN Additional IVPB Infusion Sodium Chloride 250 mls @ 15 mls/hr 06/03/24 20:21 06/03/24 20:35 IV 06/04/24 13:00 0 mls/hr .[id number] ONE Infusion Lorazepam 1 mg 06/03/24 20:23 06/03/24 21:52 Lorazepam 1 Mg Tablet PO 1 mg TID PRN Administration ANXIETY Metoprolol Tartrate 50 mg 06/03/24 22:00 06/03/24 21:56 Metoprolol Tartrate 50 Mg Tablet PO 50 mg BID YAZAN Administration Protocol Nitroglycerin 0.4 mg 06/03/24 18:24 Nitroglycerin (Inpatient Use) 0.4 Mg Tab.Subl SL Q5M PRN Chest Pain Nutritional Formula (Lactose Free) 120 ml 06/03/24 22:00 06/04/24 10:16 Ensure Plus High Protein 120 Ml Liquid PO Not Given 4X/DAY YAZAN Ondansetron HCl 4 mg 06/03/24 18:24 Ondansetron Odt 4 Mg Tablet PO DAILY PRN nausea and vomiting Ondansetron HCl 4 mg 06/03/24 18:24 Ondansetron 4 Mg/2 Ml Vial IV Q8H PRN PRN NAUSEA/VOMITING Oxycodone HCl 5 mg 06/03/24 18:24 06/04/24 10:27 Oxycodone 5 Mg Tablet PO 5 mg Q4H PRN Administration Pain Score 1-10 Sodium Chloride 10 - 40 ml 06/03/24 19:37 0.9% Saline Lock 10 Ml Syringe IV UD PRN SALINE FLUSH Tamsulosin HCl 0.4 mg 06/03/24 21:00 06/03/24 21:52 Tamsulosin Hcl 0.4 Mg Capsule PO 0.4 mg QPM YAZAN Administration [facility] Medical History (Updated 06/03/24 @ 22:[address] Aj Hughes MD) Chronic respiratory failure with hypoxia and hypercapnia COPD exacerbation Angina at rest Pulmonary embolus COVID Fecal occult blood test positive Abnormal chest CT COPD with acute exacerbation Squamous cell carcinoma of left lung Lung mass Depression Myocardial infarct Coronary artery disease Pulmonary neoplasm Wears glasses Wears dentures Cancer Anxiety Abrasion History of steroid therapy Prostate disease High cholesterol Injury of back Syncope History of weight loss Former smoker COPD (chronic obstructive pulmonary disease) On home oxygen therapy Shortness of breath on exertion Chronic cough History of stress test Cardiology follow-up encounter Chest pain No pertinent family history 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 Nocturnal hypoxemia Chronic hypoxemic respiratory failure Bronchiectasis Prostate CA CAD (coronary artery disease) HLD (hyperlipidemia) Benign essential HTN Home Medications ?Medication ?Instructions ?Recorded ?Last Taken ?Type nitroglycerin 0.4 mg sublingual 0.4 mg sublingual Q5M PRN Chest 12/29/14 1 Week Ago History tablet Pain ~07/02/20 fluticasone propionate 230 2 puff inhalation BID breathing 08/07/22 06/03/24 History mcg-salmeterol 21 mcg/actuation HFA inhaler (Advair HFA) atorvastatin 40 mg tablet 40 mg PO QHS cholesterol 03/25/23 06/02/24 History duloxetine 30 mg capsule,delayed 30 mg PO QPM DEPRESSION 03/25/23 06/02/24 History release tamsulosin 0.4 mg capsule 0.4 mg PO QPM BLADDER/ PROSTATE 03/25/23 06/02/24 History tiotropium bromide 2.5 2 puff inhalation DAILY copd 03/25/23 06/03/24 History mcg/actuation mist for inhalation (Spiriva Respimat) ezetimibe 10 mg tablet 10 mg PO DAILY cholesterol 09/28/23 06/02/24 History apixaban 5 mg tablet (Eliquis) 5 mg PO BID blood thinner 10/05/23 06/03/24 History albuterol sulfate 90 mcg/actuation 2 puff inhalation Q4H PRN wheezing 02/19/24 Unknown History aerosol inhaler aspirin 81 mg tablet,delayed 81 mg PO DAILY heart 02/19/24 06/02/24 History release (Enteric Coated Aspirin) lorazepam 1 mg tablet 1 mg PO TID anxiety 02/19/24 06/02/24 History oxycodone 5 mg tablet 5 mg PO Q4H PRN chronic pain 02/21/24 06/03/24 History ondansetron 4 mg disintegrating 4 mg PO DAILY PRN nausea and 03/30/24 05/29/24 History tablet vomiting roflumilast 500 mcg tablet 500 mcg PO DAILY 03/30/24 06/03/24 History collagenase clostridium histo. 250 1 applic topical DAILY 05/22/24 05/21/24 History unit/gram topical ointment (Santyl) Held on 06/03/24. Instructions: Conflicting Appointment furosemide 20 mg tablet (Lasix) 20 mg PO DAILY weight gain 05/22/24 05/21/24 History guaifenesin 600 mg tablet, 1,200 mg PO BID PRN cough 05/22/24 06/03/24 History extended release 12 hr (Mucinex) amoxicillin 875 mg-potassium 1 tab PO BID #10 tabs 05/24/24 Unknown Rx clavulanate 125 mg tablet metoprolol tartrate 50 mg tablet 50 mg PO BID #60 tabs 05/24/24 06/03/24 Rx prednisone 10 mg tablet 10 mg PO DAILY #36 tabs 05/24/24 06/03/24 Rx Allergy/AdvReac Type Severity Reaction Status Date / Time isosorbide (From Imdur) Allergy Other-patient Verified 06/03/24 15:00 blacks out Family History Mother Cancer Father Heart disease COPD (chronic obstructive pulmonary disease) Surgical History (Updated 06/03/24 @ 15:[address] Aj Hughes MD) Hx of CABG Hx of heart artery stent Hx of transurethral resection of prostate Hx of pneumonectomy Hx of CABG Social History household members: spouse Smoking Status: Former smoker Tobacco: How many years used: 45 Electronic Cigarette Use: not used how long ago did patient quit smokin, second hand exposure: Yes alcohol intake: never substance use type: does not use Review of Systems (Anesthesia) ROS Narrative System reviewed and no additional complaints, except as documented.
--- NOTE | 2024-06-04 12:54 | CON.PCM.GI_ITS ---
HPI Consult Data Date of Consult: 06/04/24 HPI Narrative Reason for Consultation: GI bleed HPI Narrative: OSWALDO MENDIOLA, is a 83 M with a pMH as outlined including a history of GI bleed who presents via the ED on 06/03/2024 with a complaint of rectal bleeding. He had 4 episodes of rectal bleeding since yesterday. He admitted to lightheadedness and dizziness, but denied any chest pain, palpitations, nausea, vomiting or any other symptoms. Review of systems was otherwise negative. VItals in [facility] ED were BP of 90/64, MA of 92, RR of 24 and temp of 98.4F. HE was saturating at 100% on room air. CBC showed Hb of 10.2, wbc of 20.3 and platelets of 364. CHemistry showed sodium of 139 and potassium of 5.2. Cr is 1.1. Chest x-ray shows stable multifocal airspace opacities more prominent in the left hemithorax. He is being admitted to be managed for acute on chronic anemia due to GI bleed. [facility] Medical History Chronic respiratory failure with hypoxia and hypercapnia COPD exacerbation Angina at rest Pulmonary embolus COVID Fecal occult blood test positive Abnormal chest CT COPD with acute exacerbation Squamous cell carcinoma of left lung Lung mass Depression Myocardial infarct Coronary artery disease Pulmonary neoplasm Wears glasses Wears dentures Cancer Anxiety Abrasion History of steroid therapy Prostate disease High cholesterol Injury of back Syncope History of weight loss Former smoker COPD (chronic obstructive pulmonary disease) On home oxygen therapy Shortness of breath on exertion Chronic cough History of stress test Cardiology follow-up encounter Chest pain No pertinent family history 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 Nocturnal hypoxemia Chronic hypoxemic respiratory failure Bronchiectasis Prostate CA CAD (coronary artery disease) HLD (hyperlipidemia) Benign essential HTN Home Medications ?Medication ?Instructions ?Recorded ?Last Taken ?Type nitroglycerin 0.4 mg sublingual 0.4 mg sublingual Q5M PRN Chest 12/29/14 1 Week Ago History tablet Pain ~07/02/20 fluticasone propionate 230 2 puff inhalation BID breat nicho 08/07/22 06/03/24 History mcg-salmeterol 21 mcg/actuation HFA inhaler (Advair HFA) atorvastatin 40 mg tablet 40 mg PO QHS cholesterol 06/02/24 History duloxetine 30 mg capsule,delayed 30 mg PO QPM DEPRESSI ON 03/25/23 06/02/24 History release tamsulosin 0.4 mg capsule 0.4 mg PO QPM BLADDER/ PROST ATE 03/25/23 06/02/24 History tiotropium bromide 2.5 2 puff inhalation DAILY copd 03/25/23 06/03/24 History mcg/actuation mist for inhalation (Spiriva Respimat) ezetimibe 10 mg tablet 10 mg PO DAILY cholesterol 0 09/28/23 06/02/24 History apixaban 5 mg tablet (Eliquis) 5 mg PO BID blood thinn er 10/05/23 06/03/24 History albuterol sulfate 90 mcg/actuation 2 puff inhalation Q 4H PRN wheezing 02/19/24 Unknown History aerosol inhaler aspirin 81 mg tablet,delayed 81 mg PO DAILY heart 01/3106/02/24 History release (Enteric Coated Aspirin) lorazepam 1 mg tablet 1 mg PO TID anxiety 02/19/24 06/02/24 History oxycodone 5 mg tablet 5 mg PO Q4H PRN chronic pain 02/21/24 06/03/24 History ondansetron 4 mg disintegrating 4 mg PO DAILY PRN naus ea and 03/30/24 05/29/24 History tablet vomiting roflumilast 500 mcg tablet 500 mcg PO DAILY 03/30/24 0 06/03/24 History collagenase clostridium histo. 250 1 applic topical DA KAREN 05/22/24 05/21/24 History unit/gram topical ointment (Santyl) Held on 06/03/24. Instructions: Conflicting Appointment furosemide 20 mg tablet (Lasix) 20 mg PO DAILY weight gain 05/22/24 05/21/24 History guaifenesin 600 mg tablet, 1,200 mg PO BID PRN cough 0 05/22/24 06/03/24 History extended release 12 hr (Mucinex) amoxicillin 875 mg-potassium 1 tab PO BID #10 tabs Unknown Rx clavulanate 125 mg tablet metoprolol tartrate 50 mg tablet 50 mg PO BID #60 tabs 05/24/24 06/03/24 Rx prednisone 10 mg tablet 10 mg PO DAILY #36 tabs 05/0106/03/24 Rx Allergy/AdvReac Type Severity Reaction Status Date / Time isosorbide (From Imdur) Allergy Other-patient Verified 06/03/24 15:00 blacks out Family History Mother Cancer Father Heart disease COPD (chronic obstructive pulmonary disease) Surgical History Hx of CABG Hx of heart artery stent Hx of transurethral resection of prostate Hx of pneumonectomy Hx of CABG Social History household members: spouse Smoking Status: Former smoker Tobacco: How many years used: 45 Electronic Cigarette Use: not used how long ago did patient quit smokin, second hand exposure: Yes alcohol intake: never substance use type: does not use ROS Constitutional Constitutional: Denies fatigue, fever(s), poor appetite, weight gain or weight loss Gastrointestinal Gastrointestinal: Denies belching, bloating, change in bowel habits, change in stool character, chewing difficulty, coffee ground emesis, constipation, cramping, diarrhea, dyspepsia, dysphagia, early satiety, excessive flatus, fecal incontinence, heartburn, hematemesis, hematochezia, hemorrhoids, loose stools, melena, nausea, odynophagia, rectal bleeding, tenesmus, vomiting or weight changes Physical Exam Const alert, oriented x3, no apparent distress and healthy appearing General Appearance: cooperative GI normal to inspection, nondistended, normoactive bowel sounds, soft to palpation, non-tender and non-distended Percussion: normal to percussion Rectal Exam: deferred Lab / Micro Data 06/04/24 03:02 06/04/24 03:02 Labs: Laboratory Results - last 24 hr 06/03/24 16:00: WBC 20.3 H, RBC 3.81 L, Hgb 10.2 L, Hct 34.1 L, MCV 89.5, MCH 26.8 L, MCHC 29.9 L, RDW Std Deviation 52.9 H, RDW Coeff of Estelita 16.1 H, Plt Count 364, MPV 9.6, Immature Gran % (Auto) 1.500 H, Neut % (Auto) 91.5 H, Lymph % (Auto) 3.2 L, [place] % (Auto) 3.7, Eos % (Auto) 0.0, Baso % (Auto) 0.1, Absolute Neuts (auto) 18.5 H, Absolute Lymphs (auto) 0.65 L, Nucleated RBC % 0, Sodium 139, Potassium 5.2 H, Chloride 102, Carbon Dioxide 25.7, Anion Gap 11, BUN 34 H, Creatinine 1.10, Estim Creat Clear Calc 55.95, Est GFR (MDRD) Non-Af 67, B UN/Creatinine Ratio 30.8 H, Glucose 144 H, Calcium 9.0, Blood Type O NEGATIVE, Antibody Screen NEGATIVE, Crossmatch See Detail 06/03/24 19:40: WBC 17.3 H, RBC 3.08 L, Hgb 8.4 L, Hct 28.1 L, MCV 91.2, MCH 27.3, MCHC 29.9 L, RDW Std Deviation 53.1 H, RDW Coeff of Estelita 16.2 H, Plt Count 277, MPV 9.3, Immature Gran % (Auto) 1.600 H, Neut % (Auto) 88.7 H, Lymph % (Auto) 4.2 L, [place] % (Auto) 5.4, Eos % (Auto) 0.0, Baso % (Auto) 0.1, Absolute Neuts (auto) 15.4 H, Absolute Lymphs (auto) 0.73 L, Nucleated RBC % 0.1 06/04/24 03:02: WBC 13.5 H, RBC 3.34 L, Hgb 9.2 L, Hct 29.3 L, MCV 87.7, MCH 27.5, MCHC 31.4 L D, RDW Std Deviation 52.3 H, RDW Coeff of Estelita 16.4 H, Plt Count 186, MPV 8.8, Immature Gran % (Auto) 1.100 H, Neut % (Auto) 87.2 H, Lymph % (Auto) 4.9 L, Blackford % (Auto) 6.6, Eos % (Auto) 0.1, Baso % (Auto) 0.1, Absolute Neuts (auto) 11.8 H, Absolute Lymphs (auto) 0.66 L, Nucleated RBC % 0.1, Sodium 139, Potassium 4.7, Chloride 108, Carbon Dioxide 23.5, Anion Gap 8, BUN 39 H, Creatinine 1.03, Estim Creat Clear Calc 59.67, Est GFR (MDRD) Non-Af 73, B UN/Creatinine Ratio 38.3 H, Glucose 124 H, Calcium 7.7 Rhythm Strip Rhythm Strip: Sinus Rhythm Rate: 95 Ectopy: None Imaging Radiology Impression Chest X-Ray 06/03/24 16:00 IMPRESSION: Stable multifocal airspace opacities, more prominent in the left hemithorax. Emphysema. Reading [facility] Assessment & Plan Assessment/Plan (1) Acute lower gastrointestinal bleeding: PLAN: Plan #Acute lower GI bleed likely due to bleeding diverticula * He was admitted with a complaint of lower GI bleed and had had about 4 episodes of sarika red blood per rectum * Patient had a similar lower GI bleed in October [address] angiogram of the abdomen and pelvis to rule out any small bowel bleeding. 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 He also had EGD which showed normal esophagus and small hiatal hernia and no gross lesions in the fourth portion of the duodenum and colonoscopy showed diverticulosis in the entire examined colon. * Keep NPO. Hydrate with IV fluids. Type and cross transfuse if hemoglobin drops to less than 7. * Patient will undergo an upper endoscopy and if negative may need a colonoscopy. Charges/Coding Visit Charges Inpatient E&M: 48925 Init Hosp L3
--- NOTE | 2024-06-04 13:48 | OP.EGD_ITS ---
Patient Name: Hal Corley Procedure Date: 06/04/2024 12:41 PM Date of : 1940 Age: 83 Procedure: Upper GI endoscopy Indications: Active gastrointestinal bleeding Providers: Garcia Moreno DO Medicines: Monitored Anesthesia Care Patient Profile: This is an 83 year old male. Refer to note in patient chart for documentation of history and physical. Patient has symptoms. Complications: No immediate complications. Procedure: Pre-Anesthesia Assessment: - Prior to the procedure, a History and Physical was performed, and patient medications and allergies were reviewed. The patient is competent. The risks and benefits of the procedure and the sedation options and risks were discussed with the patient. All questions were answered and informed consent was obtained. Patient identification and proposed procedure were verified by the physician in the pre-procedure area. Mental Status Examination: alert and oriented. Airway Examination: normal oropharyngeal airway and neck mobility. Respiratory Examination: clear to auscultation. CV Examination: normal. Prophylactic Antibiotics: The patient does not require prophylactic antibiotics. Prior Anticoagulants: The patient has taken no anticoagulant or antiplatelet agents. ASA Grade Assessment: III - A patient with severe systemic disease. After reviewing the risks and benefits, the patient was deemed in satisfactory condition to undergo the procedure. The anesthesia plan was to use monitored anesthesia care (MAC). Immediately prior to administration of medications, the patient was re-assessed for adequacy to receive sedatives. The heart rate, respiratory rate, oxygen saturations, blood pressure, adequacy of pulmonary ventilation, and response to care were monitored throughout the procedure. The physical status of the patient was re-assessed after the procedure. After obtaining informed consent, the endoscope was passed under direct vision. Throughout the procedure, the patient's blood pressure, pulse, and oxygen saturations were monitored continuously. The Colonoscope was introduced through the mouth, and advanced to the jejunum. Small bowel enteroscopy was deemed necessary. The upper GI endoscopy was accomplished without difficulty. The patient tolerated the procedure well. Scope In: 1:28:32 PM Scope Out: 1:40:27 PM Total Procedure Duration Time 0 hours 11 minutes 55 seconds Findings: The examined esophagus was normal. No gross lesions were noted in the entire examined stomach. Multiple 8 mm angiodysplastic lesions without bleeding were found in the second portion of the duodenum, in the third portion of the duodenum and in the fourth portion of the duodenum. Coagulation for bleeding prevention using heater probe was successful. Estimated blood loss was minimal. One 13 mm angiodysplastic lesion with bleeding was found in the jejunum. Coagulation for hemostasis using heater probe was successful. Estimated blood loss was minimal. Impression: - Normal esophagus. - No gross lesions in the entire stomach. 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 Treated with a heater probe. - One bleeding angiodysplastic lesion in the jejunum. Treated with a heater probe. - No specimens collected. Recommendation: - Return patient to hospital [facility] for ongoing care. - Full liquid diet today. - Continue present medications. - Capsule endoscopy Procedure Code(s): --- Professional --- 31726, Small intestinal endoscopy, enteroscopy beyond second portion of duodenum, not including ileum; with control of bleeding (eg, injection, bipolar cautery, unipolar cautery, laser, heater probe, stapler, plasma building maintenance supervisor) CPT copyright 2021 [employer]. All rights reserved. The codes documented in this report are preliminary and upon health psychologist review may be revised to meet current compliance requirements. Garcia Moreno DO 06/04/2024 1:46:39 PM This report has been signed electronically. Number of Addenda: 0 Note Initiated On: 06/04/2024 12:41 PM
--- NOTE | 2024-06-04 14:13 | PCM.POST.ANE ---
Anesthesia: Postop Eval I Current Vital Signs Temperature: 97.5 F Pulse Rate: 74 Blood Pressure: 131/65 Respiratory Rate: 19 Pulse Ox: 100 Assessment Airway patent: Yes Spontaneous unlabored respirations: Yes nausea: No Vomiting: No Anesthesia Complication: No Fluid Hydration Crystalloid volume administer (ml): 200 Total IV fluid infused: 200 Progress Note Anesthesia document: Postop Eval 1 completed: Yes
--- NOTE | 2024-06-04 14:14 | POSTOPAN2_ITS ---
Anesthesia Postop Eval I Sum Postop Eval Completion status Anesthesia document: Postop Eval 1 completed: Yes Anesthesia Postop Eval I Summary Anesthesia Postop Eval I Summary: Anesthesia Postop Eval I: Assessment Summary Airway patent Yes 06/04/24 14:13 [email or web address] [email or web address] Spontaneous unlabored Yes 06/04/24 14:13 WEIGHT [email or web address] respirations Mental status nausea No 06/04/24 14:13 WEIGHT [email or web address] Vomiting No 06/04/24 14:13 WEIGHT [email or web address] Anesthesia Postop Eval I: Fluid Summary Crystalloid volume administer 200 06/04/24 14:13 WEIGHT [email or web address] (ml) Colloids volume administered ( ml) Blood Product volume administered (ml) Total IV fluid infused 200 06/04/24 14:13 WEIGHT [email or web address] Anesthesia Postop Eval I: Summary Notes Anesthesia Complication No 06/04/24 14:13 WEIGHT [email or web address] Anesthesia Complication Comment: Post-operative progress note Anesthesia: Postop Eval II Evaluation Mental status: Awake Pain Level: 0 nausea: No Vomiting: No
--- NOTE | 2024-06-04 14:14 | PCM.POSTANE2 ---
Anesthesia Postop Eval I Sum Postop Eval Completion status Anesthesia document: Postop Eval 1 completed: Yes Anesthesia Postop Eval I Summary Anesthesia Postop Eval I Summary: Anesthesia Postop Eval I: Assessment Summary Airway patent Yes 06/04/24 14:13 [email or web address] [email or web address] [email or web address] Spontaneous unlabored Yes 06/04/24 14:13 CHILDREN'S LITERATURE [email or web address] respirations Mental status nausea No 06/04/24 14:13 CHILDREN'S LITERATURE [email or web address] Vomiting No 06/04/24 14:13 CHILDREN'S LITERATURE [email or web address] Anesthesia Postop Eval I: Fluid Summary Crystalloid volume administer 200 06/04/24 14:13 CHILDREN'S LITERATURE [email or web address] (ml) Colloids volume administered ( ml) Blood Product volume administered (ml) Total IV fluid infused 200 06/04/24 14:13 CHILDREN'S LITERATURE [email or web address] Anesthesia Postop Eval I: Summary Notes Anesthesia Complication No 06/04/24 14:13 CHILDREN'S LITERATURE [email or web address] Anesthesia Complication Comment: Post-operative progress note Anesthesia: Postop Eval II Evaluation Mental status: Awake Pain Level: 0 nausea: No Vomiting: No
[2024-06-04] MEDS: Ezetimibe 10 MG Tablet PO (21:04)
[2024-06-04] MEDS: Atorvastatin Calcium 40 MG Tablet PO (21:05)
[2024-06-04] MEDS: DULoxetine Hcl 30 MG Capsule PO (21:05)
[2024-06-04] MEDS: Tamsulosin HCl 0.4 MG Capsule PO (21:05)
[2024-06-04] MEDS: LORazepam 1 MG Tablet PO (21:26)
[2024-06-04] MEDS: Ensure Plus High Protein 120 ML LIQUID PO (21:27)
[2024-06-04] MEDS: Metoprolol Tartrate 50 MG Tablet PO (22:35)
[2024-06-05] VITALS (9 sets, daily range): BP systolic 102–120; BP diastolic 52–64; PULSE 61–100; RESP 19–21; TEMP 36.4–36.6; O2SAT 95–100
[2024-06-05 08:09] LABS: Anion Gap 8 (5-15); BUN 21 mg/dL (4-19); BUN/Creat Ratio 31.9 RATIO (10-20); Calcium,Total 7.7 mg/dL (7.6-11.0); Carbon Dioxide 21.6 mmol/L (21.0-32.0); Chloride 110 mmol/L (98-108); Creatinine, Serum 0.65 mg/dL (0.70-1.20); EST Glomerular Filtration Rate 95 (>60); Estimated Creatinine Clearance 76.82 ml/min (50-250); Glucose 93 mg/dL (70-99); Potassium 3.9 mmol/L (3.3-5.1); Sodium Level 139 mmol/L (133-145)
[2024-06-05 08:16] LABS: Hematocrit 26.4 % (40-54); Hemoglobin 8.2 g/dL (13.0-16.5); Mean Corp Hgb Conc 31.1 g/dL (32-36); Mean Corpuscular Hgb 27.6 pg (27.0-32.0); Mean Corpuscular Volume 88.9 fL (80-94); Platelet Count 170 K/mm3 (150-450); RBC Distribution Width CV 16.9 % (11.6-14.6); RBC Distribution Width SD 54.4 fl (35.1-43.9); Red Blood Count 2.97 M/mm3 (4.6-6.2); White Blood Count 12.7 K/mm3 (4.4-11.0)
--- NOTE | 2024-06-05 09:27 | PCM.PN.HOSP ---
Reason for Visit Reason for Visit: Diagnoses Acute posthemorrhagic anemia (06/03/24) Gastrointestinal hemorrhage, unspecified (06/03/24) Subjective Subjective Saw patient at bedside this morning. Patient was mildly fatigued but otherwise laying back comfortably in bed, conversing normally and in no acute distress. Tolerated EGD without issue yesterday. Has not had any further bloody bowel movements since admission. Notes that he feels well today and is hoping to go home soon. No other new concerns today. Objective Data Objective Data Vital Signs: Vital Signs Temp Pulse Resp BP Pulse Ox O2 Del Method O2 Flow Rate 97.8 F 76 19 H 120/64 95 Nasal Cannula 3 06/05/24 08:20 06/05/24 08:20 06/05/24 08:20 06/05/24 08:20 06/05/24 08:20 06/05/24 08:21 06/05/24 08:21 Oxygen Flow Rate (L/min) 3 Oxygen Delivery Method Nasal Cannula Weight: 75 kg Body Mass Index (BMI) 23.1 Intake & Output: Intake and Output for Last 24 Hours 06/03/24 06/04/24 06/05/24 23:59 23:59 23:59 Intake Total 2211.17 / 2211.17 2920.58 / 3120.58 200 / 200 Output Total 700 / 1000 600 / 600 Balance 2211.17 / 2211.17 2220.58 / 2120.58 -400 / -400 Lab / Micro Data 06/05/24 05:39 06/05/24 05:39 Labs: Laboratory Results - last 24 hr 06/05/24 05:39: WBC 12.7 H, RBC 2.97 L, Hgb 8.2 L, Hct 26.4 L, MCV 88.9, MCH 27.6, MCHC 31.1 L, RDW Std Deviation 54.4 H, RDW Coeff of Estelita 16.9 H, Plt Count 170, MPV 9.0, Sodium 139, Potassium 3.9, Chloride 110 H, Carbon Dioxide 21.6, Anion Gap 8, BUN 21 H, Creatinine 0.65 L, Estim Creat Clear Calc 76.82, Est GFR (MDRD) Non-Af 95, BUN/Creatinine Ratio 31.9 H, Glucose 93, Calcium 7.7 Rhythm Strip Rhythm Strip: Sinus Rhythm Rate: 95 Ectopy: None Physical Exam Const alert, oriented x3, no apparent distress and average body habitus Constitutional Narrative: Pleasant elderly male, laying back comfortably in bed, conversing normally, in no acute distress. Stable. General Appearance: cooperative and comfortable HEENT normocephalic, head/scalp atraumatic, hearing grossly normal bilaterally, nasal mucous membranes and turbinates normal and moist oral mucous membranes Eyes PERRL, EOMs intact bilaterally and conjunctivae normal Neck full ROM Chest inspection of chest normal Resp normal respiratory effort and no use of accessory muscles Resp Narrative: Breathing comfortably on home 4 L nasal cannula at rest. No wheezing or crackles noted. Cardio regular rate, regular rhythm, no murmurs and peripheral pulses 2+ throughout GI normal to inspection, nondistended, normoactive bowel sounds, soft to palpation, non-tender and non-distended Back/Spine normal ROM Extremity normal to inspection, full ROM and no pedal edema Skin no rashes or lesions noted Neuro moves all extremities and no focal motor deficits Speech: speech normal Psych mental status grossly normal Assessment & Plan Assessment/Plan (1) Acute lower gastrointestinal bleeding: (2) ABLA (acute blood loss anemia): PLAN: Plan Patient is an 83-year-old male who presented to [facility] ED on 06/24 with bright red blood per rectum. 1. Acute lower GI bleed with acute blood loss anemia in setting of chronic normocytic anemia ? GI following. Presented with 4 episodes of sarika bright red blood per rectum. Hemoglobin 10.2 on admit (baseline), dropped to 8.4 only 4 hours after that so patient was given 2 units of blood. Also given IV fluids at that time. Most recent hemoglobin 9.2 on 06/04. 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 Hemoglobin 8.2 on morning of 06/05. Will de-escalate to p.o. PPI twice daily. Per GI, will need capsule endoscopy for further evaluation but no need for lower scope at this time. Will need to determine whether to restart patient's home aspirin and/or Eliquis on discharge. Continue to monitor CBC daily. Hopeful for discharge home in the next 1 to 2 days. 2. Leukocytosis ? WBC count elevated to 20 on admit. Suspected secondary to acute stress state in setting of GI bleed. Improving, most recent WBC count 12 on 06/04. Continue to monitor CBC daily. Hold on antibiotics at this time. 3. History of chronic aortic mural thrombus, history of VTE ? Holding home Eliquis as above. Patient only remembers 1 episode of PE in the past. Follows with a Dr. Rajan for this. Will need to discuss whether to stop blood thinners on discharge with GI as noted above. 4. COPD with chronic respiratory failure ? Stable on home 4 L nasal cannula at rest, not in acute exacerbation. Notably was hospitalized in late April for acute exacerbation and improved back to his baseline with treatment for COPD exacerbation. Continue home inhalers. Chronic medical conditions: ? History of CAD with CABG and stenting, hypertension, hyperlipidemia: Normotensive on admit. Continue home statin, Zetia, Lasix, Lopressor. Holding aspirin. ? BPH with obstructive symptoms: Continue home Flomax. ? Anxiety/depression: Continue home duloxetine and Ativan as needed. ? Chronic pain: Continue home oxycodone as needed. ? History of left-sided lung cancer s/p surgical resection DVT prophylaxis: SCDs CODE STATUS: DNR CCA, DNI Expected disposition: Home, 1 to 2 days Total clinical time spent by myself addressing the patient's medical issues, reviewing all the data, and collaborating with patient's care team: 35 minutes. Charges/Coding Visit Charges Inpatient E&M: 02680 Subs Hosp L2
[2024-06-05] MEDS: ROFLUMILAST 500 MCG TABLET PO (09:47)
[2024-06-05] MEDS: Metoprolol Tartrate 50 MG Tablet PO (09:47)
[2024-06-05] MEDS: Ensure Plus High Protein 120 ML LIQUID PO (09:47)
[2024-06-05] MEDS: Pantoprazole Sodium 40 MG in 0.9% Normal Saline (100mL MB+) 100 ML 330 MG IV (09:50)
[2024-06-05] MEDS: Acetaminophen 325 MG Tablet 650 MG PO (09:51)
[2024-06-05] MEDS: oxyCODONE 5 MG Tablet PO (09:51)
[2024-06-05] MEDS: 0.9% Saline Lock 10 ML Syringe IV (09:51)
--- NOTE | 2024-06-05 11:32 | DCINST_ITS ---
Discharge Instructions Diet Discharge Diet: No restrictions DC O2, CPAP, BIPAP needs Home O2 Discharge instructions: No Dressing / Incision Discharge Activity: No Restrictions Follow Up Care Test Results: Test results from this visit will be discussed in further detail at your follow- up appointment, if applicable. Discharge Plan Admission Admit Date/Time: 06/03/24 17:32 Primary Reason for Your Visit: GI bleed Attending Provider: Jacob Suazo Primary Care Provider: Dillan Cummins Consulting Providers: Elizabeth Santamaria Instructions Additional Instructions / Restrictions: Can restart home baby aspirin but stop taking Eliquis at this time given this is your second GI bleed in the past several months. Discharge Orders/Prescriptions Prescriptions: Continued fluticasone propion-salmeterol [Advair HFA] 230-21 mcg/actuation HFA aerosol inhaler 2 puff inhalation BID nitroglycerin 0.4 MG tablet 0.4 mg SL Q5M PRN (Reason: Chest Pain) atorvastatin 40 mg tablet 40 mg PO QHS duloxetine 30 mg capsule,delayed release(DR/EC) 30 mg PO QPM tamsulosin 0.4 mg capsule 0.4 mg PO QPM Spiriva Respimat 2.5 mcg/actuation mist 2 puff INHALATION DAILY Rx Instructions: USES AROUND NOON ezetimibe 10 mg tablet 10 mg PO DAILY Patient Comments: PT TAKES AT NIGHT albuterol sulfate 90 mcg/actuation HFA aerosol inhaler 2 puff inhalation Q4H PRN (Reason: wheezing) aspirin [Enteric Coated Aspirin] 81 mg tablet,delayed release (DR/EC) 81 mg PO DAILY Patient Comments: PT TAKES AT BEDTIME oxycodone 5 mg tablet 5 mg PO Q4H PRN ondansetron 4 mg tablet,disintegrating 4 mg PO DAILY PRN (Reason: nausea and vomiting) roflumilast 500 mcg tablet 500 mcg PO DAILY Patient Comments: PT TAKES AND DOESN'T TAKE. HE TAKES A 1/2 TABLET, A WHOLE TABLET BOTHERS HIM. Santyl 250 unit/gram ointment 1 applic topical DAILY Patient Comments: USING DIFFERENT TREATMENT guaifenesin [Mucinex] 600 mg tablet extended release 12hr 1,200 mg PO BID PRN (Reason: cough) metoprolol tartrate 50 mg Tablet 50 mg PO BID Qty: 60 1RF Patient Comments: SPLITTING IN HALF RIGHT NOW BECAUSE IT MAKES HIM DIZZY. Changed furosemide [Lasix] 20 mg tablet 20 mg PO DAILY PRN (Reason: weight gain) 30 Days Qty: 0 0RF Patient Comments: PT ONLY TAKES NEEDED; HASNT TAKEN IN 10 DAYS lorazepam 1 mg tablet 1 mg PO TID PRN (Reason: anxiety) 30 Days Qty: 0 0RF Patient Comments: PT TAKES NEEDED Discontinued Eliquis 5 mg tablet 5 mg PO BID prednisone 10 mg tablet 10 mg PO DAILY Qty: 36 0RF Patient Comments: STARTED ON 05/24/24, HAS TWO LEFT. Rx Instructions: 4 tablets x 4 days, 3 tablets x 4 days, 2 tablets x 4 days then restart 10 mg daily from home dosing amoxicillin-pot clavulanate 875-125 mg tablet 1 tab PO BID Qty: 10 0RF Patient Comments: PT LAST TOOK 05/31 Referrals / Follow Up: Dillan Cummins MD [Primary Care Provider] - Friend,DO Garcia [Med Staff - Active Staff] - Disposition Disposition (needs filled in before D/C Order can be placed): Home, Self Care
--- NOTE | 2024-06-05 11:43 | DS.PCM_ITS ---
Providers Date of Admission: 06/03/24 Date of Discharge: 06/05/24 Primary Care Physician: Dr. 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 Routine Comment: Reason for Consult:: left mid ankle wound Reason For Visit: LOWER GI BLEED Diagnosis Discharge Diagnosis (1) Acute lower gastrointestinal bleeding: Status: Acute Code(s): K92.2 - Gastrointestinal hemorrhage, unspecified (2) ABLA (acute blood loss anemia): Status: Acute Code(s): D62 - Acute posthemorrhagic anemia Medications at Discharge Home Medications nitroglycerin 0.4 mg sublingual tablet 0.4 mg sublingual Q5M PRN Chest Pain 12/29/14 fluticasone propionate 230 mcg-salmeterol 21 mcg/actuation HFA inhaler (Advair HFA) 2 puff inhalation BID breathing 08/07/22 atorvastatin 40 mg tablet 40 mg PO QHS cholesterol 03/25/23 duloxetine 30 mg capsule,delayed release 30 mg PO QPM DEPRESSION 03/25/23 tamsulosin 0.4 mg capsule 0.4 mg PO QPM BLADDER/ PROSTATE 03/25/23 tiotropium bromide 2.5 mcg/actuation mist for inhalation (Spiriva Respimat) 2 puff inhalation DAILY copd 03/25/23 ezetimibe 10 mg tablet 10 mg PO DAILY cholesterol 09/28/23 albuterol sulfate 90 mcg/actuation aerosol inhaler 2 puff inhalation Q4H PRN wheezing 02/19/24 aspirin 81 mg tablet,delayed release (Enteric Coated Aspirin) 81 mg PO DAILY heart 02/19/24 oxycodone 5 mg tablet 5 mg PO Q4H PRN chronic pain 02/21/24 ondansetron 4 mg disintegrating tablet 4 mg PO DAILY PRN nausea and vomiting 03/30/24 roflumilast 500 mcg tablet 500 mcg PO DAILY 03/30/24 collagenase clostridium histo. 250 unit/gram topical ointment (Santyl) 1 applic topical DAILY 05/22/24 guaifenesin 600 mg tablet, extended release 12 hr (Mucinex) 1,200 mg PO BID PRN cough 05/22/24 metoprolol tartrate 50 mg tablet 50 mg PO BID #60 tabs 05/24/24 furosemide 20 mg tablet (Lasix) 20 mg PO DAILY PRN weight gain 30 days #0 tabs 06/05/24 lorazepam 1 mg tablet 1 mg PO TID PRN anxiety 30 days #0 tabs 06/05/24 Hospital Course Operations None Procedures EGD and - (Chest x-ray) Summary of Care Provided Minutes Spent on Discharge: 35 Hospital Course: Patient is an 83-year-old male who presented to [facility] ED on 06/03/24 with bright red blood per rectum. Hospital course as noted below. Patient discharged home in stable condition on 06/05. 1. Acute lower GI bleed with acute blood loss anemia in setting of chronic normocytic anemia ? GI followed. Presented with 4 episodes of sarika bright red blood per rectum. Hemoglobin 10.2 on admit (baseline), dropped to 8.4 only 4 hours after that so patient was given 2 units of blood. Also given IV fluids at that time. Most recent hemoglobin 9.2 on 06/04. 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 Hemoglobin 8.2 on morning of 06/05. Will de-escalate to p.o. PPI twice daily. Per GI, will need capsule endoscopy for further evaluation but no need for lower scope at this time. Will resume home aspirin but hold Eliquis on discharge; patient can follow-up with his PCP and/or vascular surgery going forward to determine if Eliquis will be needed. 2. Leukocytosis ? WBC count elevated to 20 on admit. Suspected secondary to acute stress state in setting of GI bleed. Improved during hospitalization. No need for antibiotics on discharge. 3. History of chronic aortic mural thrombus, history of VTE, history of PAD with stenting ?Home Eliquis and baby aspirin were held on admission. On chart review, appears that patient only had 1 PE in the past and this was few years ago. Has severe peripheral vascular disease with prior stenting and follows with vascular surgery, but this has now been stable for some time. Will restart home aspirin on discharge but discontinue Eliquis as noted above. 4. COPD with chronic respiratory failure ? Stable on home 4 L nasal cannula at rest, not in acute exacerbation. Notably was hospitalized in late April for acute exacerbation and improved back to his baseline with treatment for COPD exacerbation. Continue home inhalers. Chronic medical conditions: ? History of CAD with CABG and stenting, hypertension, hyperlipidemia: Normotensive on admit. Continue home statin, Zetia, Lasix, Lopressor. Aspirin restarted on discharge. ? BPH with obstructive symptoms: Continue home Flomax. ? Anxiety/depression: Continue home duloxetine and Ativan as needed. ? Chronic pain: Continue home oxycodone as needed. ? History of left-sided lung cancer s/p surgical resection Total clinical time spent by myself addressing the patient's medical issues, reviewing all the data, and collaborating with patient's care team: 35 minutes. Physical Exam Const alert, oriented x3, no apparent distress and average body habitus Constitutional Narrative: Pleasant elderly male, laying back comfortably in bed, conversing normally, in no acute distress. Stable. General Appearance: cooperative and comfortable HEENT normocephalic, head/scalp atraumatic, hearing grossly normal bilaterally, nasal mucous membranes and turbinates normal and moist oral mucous membranes Eyes PERRL, EOMs intact bilaterally and conjunctivae normal Neck full ROM Chest inspection of chest normal Resp normal respiratory effort and no use of accessory muscles Resp Narrative: Breathing comfortably on home 4 L nasal cannula at rest. No wheezing or crackles noted. Cardio regular rate, regular rhythm, no murmurs and peripheral pulses 2+ throughout GI normal to inspection, nondistended, normoactive bowel sounds, soft to palpation, non-tender and non-distended Back/Spine normal ROM Extremity normal to inspection, full ROM and no pedal edema Skin no rashes or lesions noted Neuro moves all extremities and no focal motor deficits Speech: speech normal Psych mental status grossly normal Weight / BMI Weight Weight: 75 kg Body Mass Index (BMI) 23.1 ABG / Lab / Microbiology Data 06/05/24 05:39 06/05/24 05:39 Laboratory: Laboratory Results - last 24 hr 06/05/24 05:39: WBC 12.7 H, RBC 2.97 L, Hgb 8.2 L, Hct 26.4 L, MCV 88.9, MCH 27.6, MCHC 31.1 L, RDW Std Deviation 54.4 H, RDW Coeff of Estelita 16.9 H, Plt Count 170, MPV 9.0, Sodium 139, Potassium 3.9, Chloride 110 H, Carbon Dioxide 21.6, Anion Gap 8, BUN 21 H, Creatinine 0.65 L, Estim Creat Clear Calc 76.82, Est GFR (MDRD) Non-Af 95, BUN/Creatinine Ratio 31.9 H, Glucose 93, Calcium 7.7 D/C Instructions Discharge Diet: No restrictions DC O2, CPAP, BIPAP Needs Home O2 Discharge instructions: No Meaningful Use Info Meaningful Use Meaningful Use Diagnoses (Choose all that apply): None applicable Ischemic Stroke Statin Dosing Therapy Reference: STATIN DOSE THERAPY REFERENCE: * Patients > 75 years receive moderate or high dose statin therapy. * Patients 75 years or YOUNGER should receive HIGH intensity statin dose unless contraindicated. You will be required to document reason for non-treatment if statin daily dose does not meet guidelines. HIGH DOSE STATIN THERAPY DAILY Atorvastatin > than or = to 40 mg Rosuvastatin > than or = to 20 mg Amlodipine + Atorvastatin > than or = to 2.5/40 mg Ezetimibe + Simvastatin 10/80 mg Simvastatin 80mg Discharge Plan Admission Admit Date/Time: 06/03/24 17:32 Primary Reason for Your Visit: GI bleed Attending Provider: Jacob Suazo Primary Care Provider: Dillan Cummins Consulting Providers: Elizabeth Santamaria Instructions Additional Instructions / Restrictions: Can restart home baby aspirin but stop taking Eliquis at this time given this is your second GI bleed in the past several months. Discharge Orders/Prescriptions Prescriptions: Continued fluticasone propion-salmeterol [Advair HFA] 230-21 mcg/actuation HFA aerosol inhaler 2 puff inhalation BID nitroglycerin 0.4 MG tablet 0.4 mg SL Q5M PRN (Reason: Chest Pain) atorvastatin 40 mg tablet 40 mg PO QHS duloxetine 30 mg capsule,delayed release(DR/EC) 30 mg PO QPM tamsulosin 0.4 mg capsule 0.4 mg PO QPM Spiriva Respimat 2.5 mcg/actuation mist 2 puff INHALATION DAILY Rx Instructions: USES AROUND NOON ezetimibe 10 mg tablet 10 mg PO DAILY Patient Comments: PT TAKES AT NIGHT albuterol sulfate 90 mcg/actuation HFA aerosol inhaler 2 puff inhalation Q4H PRN (Reason: wheezing) aspirin [Enteric Coated Aspirin] 81 mg tablet,delayed release (DR/EC) 81 mg PO DAILY Patient Comments: PT TAKES AT BEDTIME oxycodone 5 mg tablet 5 mg PO Q4H PRN ondansetron 4 mg tablet,disintegrating 4 mg PO DAILY PRN (Reason: nausea and vomiting) roflumilast 500 mcg tablet 500 mcg PO DAILY Patient Comments: PT TAKES AND DOESN'T TAKE. HE TAKES A 1/2 TABLET, A WHOLE TABLET BOTHERS HIM. Santyl 250 unit/gram ointment 1 applic topical DAILY Patient Comments: USING DIFFERENT TREATMENT guaifenesin [Mucinex] 600 mg tablet extended release 12hr 1,200 mg PO BID PRN (Reason: cough) metoprolol tartrate 50 mg Tablet 50 mg PO BID Qty: 60 1RF Patient Comments: SPLITTING IN HALF RIGHT NOW BECAUSE IT MAKES HIM DIZZY. Changed furosemide [Lasix] 20 mg tablet 20 mg PO DAILY PRN (Reason: weight gain) 30 Days Qty: 0 0RF Patient Comments: PT ONLY TAKES NEEDED; HASNT TAKEN IN 10 DAYS lorazepam 1 mg tablet 1 mg PO TID PRN (Reason: anxiety) 30 Days Qty: 0 0RF Patient Comments: PT TAKES NEEDED Discontinued Eliquis 5 mg tablet 5 mg PO BID prednisone 10 mg tablet 10 mg PO DAILY Qty: 36 0RF Patient Comments: STARTED ON 05/24/24, HAS TWO LEFT. Rx Instructions: 4 tablets x 4 days, 3 tablets x 4 days, 2 tablets x 4 days then restart 10 mg daily from home dosing amoxicillin-pot clavulanate 875-125 mg tablet 1 tab PO BID Qty: 10 0RF Patient Comments: PT LAST TOOK 05/31 Referrals / Follow Up: Dillan Cummins MD [Primary Care Provider] - Friend,DO Garcia [Med Staff - Active Staff] - Disposition Disposition (needs filled in before D/C Order can be placed): Home, Self Care Charges/Coding Visit Charges Inpatient E&M: 87463 Disch Hosp >30min
== END 2024-06-05 14:42 | disposition home health service (06) | DRG 394 ==
LOC: ED 16:44 → MS3 17:54
PROVIDERS: Internal Medicine Gastroenterology; Admitting Provider Student in an Organized Health Care Education/Training Program; Emergency Provider Emergency Medicine; PCP Family Medicine; Visit Provider Hospitalist
PROC: 0DJ08ZZ Inspection of Upper Intestinal Tract, Via Natural or Artificial Opening Endoscopic (ICD-10-PCS; CPT 43235; principal; 2024-06-04 12:45)
DX: K55.32 Stage 2 necrotizing enterocolitis (principal); D62 Acute posthemorrhagic anemia; J96.10 Chronic respiratory failure, unspecified whether with hypoxia or hypercapnia; N13.8 Other obstructive and reflux uropathy; Z66 Do not resuscitate; J44.9 Chronic obstructive pulmonary disease, unspecified; I10 Essential (primary) hypertension; I73.9 Peripheral vascular disease, unspecified; F32.A Depression, unspecified; I25.10 Atherosclerotic heart disease of native coronary artery without angina pectoris; E87.5 Hyperkalemia; E78.00 Pure hypercholesterolemia, unspecified; K31.819 Angiodysplasia of stomach and duodenum without bleeding; F41.9 Anxiety disorder, unspecified; I25.2 Old myocardial infarction; Z86.16 Personal history of COVID-19; Z87.891 Personal history of nicotine dependence; Z95.5 Presence of coronary angioplasty implant and graft; Z79.51 Long term (current) use of inhaled steroids; Z79.82 Long term (current) use of aspirin; Z82.5 Family history of asthma and other chronic lower respiratory diseases; Z79.01 Long term (current) use of anticoagulants; G89.29 Other chronic pain; N40.1 Benign prostatic hyperplasia with lower urinary tract symptoms; Z85.118 Personal history of other malignant neoplasm of bronchus and lung; Z95.1 Presence of aortocoronary bypass graft
CPT/HCPCS: 11043; 36415; 71045; 80048; 85025; 85027; 86850; 86900; 86901; 87070; 87075; 87077; 87205; 93005; 94640; 97162; 97165; 97802; 99285; C1889; P9016; A4216

== ENCOUNTER → 2024-06-08 | Outpatient (CLI) | payer MEDICARE, BC, SELFPAY ==
[2024-06-08 16:48] LABS: Absolute Lymphocyte Count 0.42 X10^3/uL (0.83-4.51); Absolute Neutrophil Count 5.7 X10^3/uL (2.0-7.7); Basophil# 0.01 X10^3/uL; Basophil% 0.2 % (0-1); Eosinophil# 0.05 X10^3/uL; Eosinophils% 0.8 % (0-5); Hematocrit 26.7 % (40-54); Hemoglobin 8.2 g/dL (13.0-16.5); Lymphocyte # 0.42 X10^3/ul (0.83-4.51); Lymphocyte % 6.4 % (19-41); Mean Corp Hgb Conc 30.7 g/dL (32-36); Mean Corpuscular Hgb 27.9 pg (27.0-32.0); Mean Corpuscular Volume 90.8 fL (80-94); Mean Platelet Vol. 9.3 fl (6.2-12.0); Monocyte# 0.38 X10^3/uL; Monocyte% 5.8 % (0-10); NRBC Flagged by Analyzer 0.3 % (0-5); Neutrophil # 5.65 X10^3/uL (2.7-7.7); POSITIVE DIFFERENTIAL YES; Platelet Count 190 K/mm3 (150-450); RBC Distribution Width CV 16.5 % (11.6-14.6); RBC Distribution Width SD 53.4 fl (35.1-43.9); Red Blood Count 2.94 M/mm3 (4.6-6.2); White Blood Count 6.6 K/mm3 (4.4-11.0)
[2024-06-08 16:54] LABS: Differential Indicated SCAN CRITERIA MET
== END | disposition home or self-care (01) ==
LOC: LAB 15:40
PROVIDERS: PCP Family Medicine; Referring Provider Student in an Organized Health Care Education/Training Program; Visit Provider Student in an Organized Health Care Education/Training Program
DX: D64.9 Anemia, unspecified (principal)
CPT/HCPCS: 36415; 85025

== ENCOUNTER → 2024-06-10 | Outpatient (CLI) | payer MEDICARE, BC, SELFPAY | END | disposition home or self-care (01) | LOC: LABSPEC 09:50 | PROVIDERS: PCP Family Medicine; Referring Provider Student in an Organized Health Care Education/Training Program; Visit Provider Student in an Organized Health Care Education/Training Program | DX: D64.9 Anemia, unspecified (principal) | CPT/HCPCS: 82274 ==

== ENCOUNTER → 2024-06-13 | Outpatient (CLI) | payer MEDICARE, BC, SELFPAY ==
[2024-06-13 13:00] LABS: Absolute Lymphocyte Count 0.43 X10^3/uL (0.83-4.51); Basophil# 0.02 X10^3/uL; Basophil% 0.3 % (0-1); Eosinophil# 0.07 X10^3/uL; Eosinophils% 0.9 % (0-5); Hematocrit 28.9 % (40-54); Hemoglobin 8.6 g/dL (13.0-16.5); Lymphocyte # 0.43 X10^3/ul (0.83-4.51); Lymphocyte % 5.4 % (19-41); Mean Corp Hgb Conc 29.8 g/dL (32-36); Mean Corpuscular Hgb 27.1 pg (27.0-32.0); Mean Corpuscular Volume 91.2 fL (80-94); Monocyte# 0.37 X10^3/uL; Monocyte% 4.6 % (0-10); NRBC Flagged by Analyzer 0 % (0-5); Neutrophil # 7.04 X10^3/uL (2.7-7.7); Neutrophil % 88.3 % (47-70); POSITIVE DIFFERENTIAL YES; Platelet Count 213 K/mm3 (150-450); RBC Distribution Width CV 15.8 % (11.6-14.6); RBC Distribution Width SD 51.8 fl (35.1-43.9); Red Blood Count 3.17 M/mm3 (4.6-6.2)
[2024-06-13 13:49] LABS: PSA,Total- Diagnostic 0.17 ng/mL (0.00-4.00)
== END | disposition home or self-care (01) ==
LOC: LAB 12:05
PROVIDERS: PCP Family Medicine; Referring Provider Nurse Practitioner; Visit Provider Nurse Practitioner
DX: C61 Malignant neoplasm of prostate (principal)
CPT/HCPCS: 36415; 84153; 85025

== ENCOUNTER 2024-06-22 13:30 | Outpatient (RCR) | payer MEDICARE, BC, SELFPAY ==
[2024-05-31 00:22] VITALS: BP 136/52; PULSE 69; RESP 16; TEMP 36.1; O2SAT 95; BMI 22.4
[2024-06-01 11:49] VITALS: BP 132/65; PULSE 73; RESP 18; TEMP 36; BMI 22.4
--- NOTE | 2024-06-01 12:26 | PCM.WC.HP ---
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 Drew. Patient has a significant history for COPD that he sees Palliative care to help manage. He is on home O2. He also has a history of Prostate CA, Squamous carcinoma of left lung, HTN, anxiety and depression, AAA without rupture, CAD, coronary artery stent placement (multiple), CABG x 3, former smoker, PAD, PBH, and pulmonary embolism- on anticoagulants, and hyperlipidemia. He has had arterial studies in the past and had some vascular procedures (by Dr. Freeman) to his left leg. He denies hx of diabetes. His providers are all with [facility]. He has had this left medial ankle ulcer for 3 months. He has been placing Santyl covered with [employer]. There has not been much improvement to this area. He states that he was referred to see us by [facility] and that Dr. Drew also suggested he get a second opinion. He is on a new medication that his states is an antibiotic but they are unsure of the name. He denies fever, chills, nausea or vomiting. He comes in today for further evaluation and treatment. Progress of Wound: Mr. Corley is a 83-year-old male presenting to the wound care center today for follow-up evaluation of full-thickness wound to the left lower extremity medial ankle area. Patient was seen by the nurse practitioner here at the wound care center was coming to hospital as well as Dr. Drew who suggested a second opinion patient has been treating the full-thickness wound for approximately 6 months with Santyl, moist gauze and dry sterile dressing. Wound has been unable to heal and chronic in nature. There is no drainage or concern for infection at this time. He denies any pain to the left lower extremity. Patient does have evidence of a flatfoot valgus deformity to the left lower extremity causing possible increase in pressure with his soft tissue envelope. He does admit to trauma but as a child. Denies constitutional symptoms. No other pedal complaints at this time. [facility] Medical History Chronic respiratory failure with hypoxia and hypercapnia COPD exacerbation Angina at rest Pulmonary embolus COVID Fecal occult blood test positive Abnormal chest CT COPD with acute exacerbation Squamous cell carcinoma of left lung Lung mass Depression Myocardial infarct Coronary artery disease Pulmonary neoplasm Wears glasses Wears dentures Cancer Anxiety Abrasion History of steroid therapy Prostate disease High cholesterol Injury of back Syncope History of weight loss Former smoker COPD (chronic obstructive pulmonary disease) On home oxygen therapy Shortness of breath on exertion Chronic cough History of stress test Cardiology follow-up encounter Chest pain No pertinent family history 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 Nocturnal hypoxemia Chronic hypoxemic respiratory failure Bronchiectasis Prostate CA CAD (coronary artery disease) HLD (hyperlipidemia) Benign essential HTN Home Medications ?Medication ?Instructions ?Recorded ?Last Taken ?Type nitroglycerin 0.4 mg sublingual 0.4 mg sublingual Q5M PRN Chest 12/29/14 1 Week Ago History tablet Pain ~07/02/20 fluticasone propionate 230 2 puff inhalation BID breathing 08/07/22 05/22/24 History mcg-salmeterol 21 mcg/actuation HFA inhaler (Advair HFA) atorvastatin 40 mg tablet 40 mg PO QHS cholesterol 03/25/23 05/21/24 History duloxetine 30 mg capsule,delayed 30 mg PO QPM DEPRESSION 03/25/23 05/21/24 History release tamsulosin 0.4 mg capsule 0.4 mg PO QPM BLADDER/ PROSTATE 03/25/23 05/21/24 History tiotropium bromide 2.5 2 puff inhalation DAILY copd 03/25/23 10/05/23 History mcg/actuation mist for inhalation (Spiriva Respimat) ezetimibe 10 mg tablet 10 mg PO DAILY cholesterol 09/28/23 05/21/24 History apixaban 5 mg tablet (Eliquis) 5 mg PO BID blood thinner 10/05/23 05/22/24 History albuterol sulfate 90 mcg/actuation 2 puff inhalation Q4H PRN wheezing 02/19/24 Unknown History aerosol inhaler aspirin 81 mg tablet,delayed 81 mg PO DAILY heart 02/19/24 05/21/24 History release (Enteric Coated Aspirin) lorazepam 1 mg tablet 1 mg PO TID anxiety 02/19/24 05/22/24 History oxycodone 5 mg tablet 5 mg PO Q4H PRN chronic pain 02/21/24 05/22/24 History ondansetron 4 mg disintegrating 4 mg PO DAILY PRN nausea and 03/30/24 Unknown History tablet vomiting roflumilast 500 mcg tablet 500 mcg PO DAILY 03/30/24 05/21/24 History collagenase clostridium histo. 250 1 applic topical DAILY 05/22/24 05/21/24 History unit/gram topical ointment (Santyl) cyclosporine 0.05 % eye drops in a 1 drp ophthalmic (eye) BID 05/22/24 05/21/24 History dropperette (Restasis) furosemide 20 mg tablet (Lasix) 20 mg PO DAILY weight gain 05/22/24 05/21/24 History guaifenesin 600 mg tablet, 1,200 mg PO BID cough 05/22/24 05/22/24 History extended release 12 hr (Mucinex) prednisone 10 mg tablet 10 mg PO DAILY 05/22/24 05/22/24 History Held on 05/24/24. Instructions: until taper completed amoxicillin 875 mg-potassium 1 tab PO BID #10 tabs 05/24/24 Unknown Rx clavulanate 125 mg tablet metoprolol tartrate 50 mg tablet 50 mg PO BID #60 tabs 05/24/24 Unknown Rx prednisone 10 mg tablet 10 mg PO DAILY #36 tabs 05/24/24 Unknown Rx Allergy/AdvReac Type Severity Reaction Status Date / Time isosorbide (From Imdur) Allergy Other-patient Verified 05/22/24 12:03 blacks out Family History Mother Cancer Father Heart disease COPD (chronic obstructive pulmonary disease) Surgical History Hx of CABG Hx of heart artery stent Hx of transurethral resection of prostate Hx of pneumonectomy Hx of CABG No pertinent past surgical history Social History household members: spouse Smoking Status: Former smoker Tobacco: How many years used: 45 Electronic Cigarette Use: not used how long ago did patient quit smokin, second hand exposure: Yes alcohol intake: never substance use type: does not use Vital Signs Vital Signs Vital Signs: 06/01/24 11:49 Temperature 96.8 F L Temperature Source Temporal Pulse Rate 73 Respiratory Rate 18 Blood Pressure 132/65 H Blood Pressure Mean 87 Blood Pressure Source Monitor Blood Pressure Position Semi-Fowlers Blood Pressure Location Right Arm Oxygen Delivery Method Room Air Weight Weight: 74.843 kg Body Mass Index (BMI) 22.4 Physical Exam Narrative Vascular: DP and PT pulses are faintly palpable. CFT is brisk. No erythema appreciated. Skin temp great is warm to cool from proximal ankles to distal digits left lower extremity. Neurological: Light touch intact. Patient does despond painful stimuli. Dermatological: Full-thickness wound to the medial malleolus of the left lower extremity, measuring 0.7 x 0.7 x 0.2 cm. Undermining is appreciated circumferentially at 0.4 cm. Wound base is down to deltoid ligament. Blanchable erythema to periwound with no sign of infection. Excisional debridement down to including subcutaneous tissue, fascia and muscle to the left lower extremity full-thickness wound with a number 3 mm dermal curette and #15 blade without incident. Predebridement measurement was 0.5 x 0.5 x 0.1 cm. Postdebridement measurement is 0.7 x 0.7 x 0.2 cm. Musculoskeletal: Muscle strength 5 and 5 in all quadrants bilateral. Mild pain to palpation to full-thickness wound to the left lower extremity medial ankle. No pain with calf pressure. Debridement Note Debridement Note Debridement Free Text: Excisional debridement down to including subcutaneous tissue, fascia and muscle to the left lower extremity full-thickness wound with a number 3 mm dermal curette and #15 blade without incident. Predebridement measurement was 0.5 x 0.5 x 0.1 cm. Postdebridement measurement is 0.7 x 0.7 x 0.2 cm. Post-Debridement Measurements and Additional Note: Post-Debridement Measurements/Treatment - Nurse 1 - General Ulcer Assessment Start: 06/01/24 11:49 Freq: Status: Active Protocol: MILENA Activity Type Activity Date Activity User E-sign Co-sign Detail Recorded Client Recorded Date Recorded By Document 06/01/24 11:49 RAYMOND [id number] 06/01/24 11:56 KW 06/01/24 11:49 - Today's Visit Information Type of service Follow-up Visit (Physician/PERFORMANCE ANALYST ) Arrival Mode Wheelchair Accompanied by Patient Identification Verified (Name & Yes ) Height and Weight Body Mass Index (BMI) 22.4 BMI Classification Normal Vital Signs Temperature (97.8 F-99.1 F) 96.8 F L Temperature Source Temporal Pulse Rate (60-100) 73 Pulse Location Monitor Respiratory Rate (12-18) 18 Respiratory rate source Observation Oxygen Delivery Method Room Air Blood Pressure (90/60-120/80) 132/65 H Blood Pressure Mean 87 Source Monitor Position Semi-Fowlers Blood Pressure Location Right Arm History Since Last Visit- (Skip if this is Patient's initial visit) Have you changed medications since your No last visit? Any new allergies or adverse reactions No Had a fall/change in ADL's that may No increase risk of falls Signs or symptoms of abuse and/or No neglect since last visit Have you been in the hospital since your No last visit? Has dressing in place as prescribed Yes Has compression in place as prescribed N/A Has offloadiing in place as prescribed N/A Experienced any changes in pain level or No management Left Footwear Regular Shoe Right Footwear Regular Shoe Pain Scale: 0-10 Numeric Is Patient Pain Free? Yes WC - Nurse 1 - General Ulcer Measurement Start: 06/01/24 11:49 Freq: Status: Active Protocol: Activity Type Activity Date Activity User E-sign Co-sign Detail Recorded Client Recorded Date Recorded By Document 06/01/24 11:49 [id number] 06/01/24 11:56 KW 06/01/24 11:49 Wound Center Nurse 1 #1- L MEDIAL ANKLE -Current Size (cm) - Length 0.7 -Current Size (cm) - Width 0.7 -Current Size (cm) - Depth 0.4 -Total Square Cm 0.49 -Date of Last Picture (Recall this 06/01/24 field) -Exudate Amt Small -Exudate Type Serosanguineous -Wound Margin Thickened & Rolled Under -Granulation Amt None Present (0 %) -Necrosis Amt Large (67-100%) -Necrotic Tissue Type Adherent Slough -Texture (Bell-wound Skin Appearance) Assessed, Localized Edema -Moisture (Bell-wound Skin Appearance) Assessed -Color (Bell-wound Skin Appearance) Assessed, Erythema -Temperature (Bell-wound Skin No Abnormality Appearance) (Pt Warm) -Tenderness on Palpation (Bell-wound Yes Skin Appearance) -Ulcer Cleansing Rinsed/ Irrigated with Saline -Foul Odor after Cleansing No -Anesthetic Used 5% Lidocaine Gel WC - Nurse 2 - General Ulcer CM Notes Start: 06/01/24 11:49 Freq: Status: Active Protocol: Activity Type Activity Date Activity User E-sign Co-sign Detail Recorded Client Recorded Date Recorded By Document 06/01/24 12:11 SONNY [id number] 06/01/24 12:19 SONNY 06/01/24 12:11 Wound Center Nurse 2 -Time 12:11 -Correct Patient Yes -Correct Side, Site, Position Yes -Correct Procedure Yes -Procedure Performed Yes -Type of Procedure Debridement -Clinical Debridement Muscle / Fascia -Tissue Removed Muscle,Fascia, Tendon -Post Debridement (cm) - Length 0.7 -Post Debridement (cm) - Width 0.7 -Post Debridement (cm) - Depth 0.2 -Total Square (Post) (cm) 0.49 -Area of Debridement (cm) - Length 0.7 -Area of Debridement (cm) - Width 0.7 -Total Square (Area) (cm) 0.49 -Tunneling No -Undermining/Tunneling No -Circular Undermining Yes -Wound/Ulcer Outcome Not Healed -Ulcer Cleansing Rinsed/ Irrigated with Saline -Foul Odor after Cleansing No -Bioengineered Tissue No -Bleeding Controlled with Pressure -Treatment Response Procedure Tolerated Well -Offloading No -Debridement - Muscle / Fascia, 1st Yes 20sq cm Pain Scale: 0-10 Numeric Is Patient Pain Free? 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 All findings were discussed with the patient. All questions were answered to the patient's satisfaction. Excisional debridement down to including subcutaneous tissue, fascia and muscle to the left lower extremity full-thickness wound with a number 3 mm dermal curette and #15 blade without incident. Predebridement measurement was 0.5 x 0.5 x 0.1 cm. Postdebridement measurement is 0.7 x 0.7 x 0.2 cm. Left lower extremity full-thickness wounds were cleaned and patted dry. Culture was taken to rule out any possible deep tissue infection antibiotics will prescribe as needed. We will stop using Santyl as he has been using it for the past 6 months without much success. The full-thickness wound was dressed with moist collagen they will leave it clean dry and intact until follow-up in 1 week. It was educated to the that if the collagen falls out or disappears they are to replace the collagen as discussed. I also educated the patient and his to leave the wound clean dry and intact and not to get it wet. Follow-up at the wound care center with Dr. Mazariegos in 1 week. (2) Other specified peripheral vascular diseases: CODE(S): I73.89 - Other specified peripheral vascular diseases
--- NOTE | 2024-06-02 10:20 | WC ---
PHOTO 06/01/24 LEFT [facility] ANKLE
[2024-06-08 10:43] VITALS: BP 106/58; PULSE 86; RESP 20; TEMP 36.2; BMI 22.4
--- NOTE | 2024-06-08 11:03 | PCM.WC.PN ---
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 Drew. Patient has a significant history for COPD that he sees Palliative care to help manage. He is on home O2. He also has a history of Prostate CA, Squamous carcinoma of left lung, HTN, anxiety and depression, AAA without rupture, CAD, coronary artery stent placement (multiple), CABG x 3, former smoker, PAD, PBH, and pulmonary embolism- on anticoagulants, and hyperlipidemia. He has had arterial studies in the past and had some vascular procedures (by Dr. Freeman) to his left leg. He denies hx of diabetes. His providers are all with [facility]. He has had this left medial ankle ulcer for 3 months. He has been placing Santyl covered with Murphy SAP. There has not been much improvement to this area. He states that he was referred to see us by [facility] and that Dr. Drew also suggested he get a second opinion. He is on a new medication that his states is an antibiotic but they are unsure of the name. He denies fever, chills, nausea or vomiting. He comes in today for further evaluation and treatment. Progress of Wound: Full-thickness wound medial ankle stable Subjective Subjective Mr. Corley is a 83-year-old male presenting to wound care center today for follow-up evaluation of full-thickness wound to the medial left ankle. Patient has been compliant with dressing changes. However, the patient was recently admitted for GI bleed to [facility] and seen by gastrointestinal doctor who did a scope and discovered a lesion that was cauterized to control his bleeding. He has discharge follow-up this week. Patient has continue dressing changes since discharged he is here for evaluation and follow-up. Denies trauma. Denies constitutional symptoms. No other pedal complaints at this time. Objective Data Objective Data Vital Signs: Vital Signs Temp Pulse Resp BP Pulse Ox O2 Del Method O2 Flow Rate 97.1 F L 86 20 H 106/58 L 95 Nasal Cannula 4 06/08/24 10:43 06/08/24 10:43 06/08/24 10:43 06/08/24 10:43 05/31/24 00:22 06/08/24 10:43 06/08/24 10:43 Oxygen Flow Rate (L/min) 4 Oxygen Delivery Method Nasal Cannula Weight: 74.843 kg Body Mass Index (BMI) 22.4 Lab / Micro Data Micro: Microbiology 06/01/24 12:17 Ulcer, Decubitus - Ankle Gram Stain - Final 06/01/24 12:17 Ulcer, Decubitus - Ankle Wound Culture - Final Corynebacterium striatum 06/01/24 12:17 Ulcer, Decubitus - Ankle Anaerobic Culture - Final No anaerobic bacteria isolated. Physical Exam Narrative Vascular: DP and PT pulses are faintly palpable. CFT is brisk. No erythema appreciated. Skin temp great is warm to cool from proximal ankles to distal digits left lower extremity. Neurological: Light touch intact. Patient does despond painful stimuli. Dermatological: Full-thickness wound to the medial malleolus of the left lower extremity, measuring 1.1 x 1.0 x 0.3 cm. Undermining is appreciated circumferentially at 0.2 cm. Wound base is down to deltoid ligament. Blanchable erythema to periwound with no sign of infection. Excisional debridement down to including subcutaneous tissue, fascia and muscle to the left lower extremity full-thickness wound with a number 3 mm dermal curette and #15 blade without incident. Predebridement measurement was 1.0 x 0.9 x 0.1 cm. Postdebridement measurement is 1.1 x 1.0 x 0.3 cm. Musculoskeletal: Muscle strength 5 and 5 in all quadrants bilateral. Mild pain to palpation to full-thickness wound to the left lower extremity medial ankle. No pain with calf pressure. Debridement Note Debridement Note Debridement Free Text: Excisional debridement down to including subcutaneous tissue, fascia and muscle to the left lower extremity full-thickness wound with a number 3 mm dermal curette and #15 blade without incident. Predebridement measurement was 1.0 x 0.9 x 0.1 cm. Postdebridement measurement is 1.1 x 1.0 x 0.3 cm. 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 ENGINEER (Physician/HYDROELECTRIC PLANT MECHANICAL ENGINEER ) ) Arrival Mode Wheelchair Wheelchair Transfer Assistance None Accompanied by Patient Identification Verified (Name & Yes Yes ) Patient Requires Transmission-Based No Precautions Height and Weight Body Mass Index (BMI) 22.4 22.4 BMI Classification Normal Normal Vital Signs Temperature (97.8 F-99.1 F) 96.8 F L 97.1 F L Temperature Source Temporal Temporal Pulse Rate (60-100) 73 86 Pulse Location Monitor Monitor Respiratory Rate (12-18) 18 20 H Respiratory rate source Observation Observation Oxygen Delivery Method Room Air Nasal Cannula O2 L/MIN (L/min) 4 Blood Pressure (90/60-120/80) 132/65 H 106/58 L Blood Pressure Mean (mm Hg) 87 74 Source Monitor Monitor Position Semi-Fowlers Sitting Blood Pressure Location Right Arm Left Arm History Since Last Visit- (Skip if this is Patient's initial visit) Have you changed medications since your No Yes last visit? Any new allergies or adverse reactions No No Had a fall/change in ADL's that may No No increase risk of falls Signs or symptoms of abuse and/or No No neglect since last visit Have you been in the hospital since your No Yes last visit? Has dressing in place as prescribed Yes Yes Has compression in place as prescribed N/A N/A Has offloadiing in place as prescribed N/A N/A Experienced any changes in pain level or No No management Left Footwear Regular Shoe Regular Shoe Right Footwear Regular Shoe Regular Shoe Pain Scale: 0-10 Numeric Is Patient Pain Free? Yes Yes - Nurse 1 - General Ulcer Measurement Start: 06/01/24 11:49 Freq: Status: Active Protocol: Activity Type Activity Date Activity User E-sign Co-sign Detail Recorded Client Recorded Date Recorded By Document 06/01/24 11:49 [id number] 06/01/24 11:56 Document 06/08/24 10:43 [id number] 06/08/24 10:52 GM 06/01/24 06/08/24 11:49 10:43 Wound Center Nurse 1 #1- L MEDIAL ANKLE -Current Size (cm) - Length 0.7 0.5 -Current Size (cm) - Width 0.7 0.5 -Current Size (cm) - Depth 0.4 0.3 -Total Square Cm 0.49 0.25 -Date of Last Picture (Recall this 06/01/24 06/08/24 field) -Photo Taken Yes -Epithelialization Small 1-33% -Tunneling No -Undermining/Tunneling No -Circular Undermining No -Change in Wound Grade/Stage No -Exudate Amt Small Small -Exudate Type Serosanguineous Yellow/Green -Wound Margin Thickened & Distinct, Rolled Under Outline Attached -Granulation Amt None Present (0 Small (1-33%) %) -Granulation Quality [place] -Slough/Fibrin Yes -Necrosis Amt Large (67-100%) Small (1-33%) -Necrotic Tissue Type Adherent Slough Adherent Slough -Texture (Bell-wound Skin Appearance) Assessed, Assessed Localized Edema -Moisture (Bell-wound Skin Appearance) Assessed Assessed, Maceration -Color (Bell-wound Skin Appearance) Assessed, Assessed Erythema -Temperature (Bell-wound Skin No Abnormality No Abnormality Appearance) (Pt Warm) (Pt Warm) -Tenderness on Palpation (Bell-wound Yes Skin Appearance) -Ulcer Cleansing Rinsed/ Rinsed/ Irrigated with Irrigated with Saline Saline -Foul Odor after Cleansing No No -Anesthetic Used 5% Lidocaine 5% Lidocaine Gel Gel Lower Limb Edema Present Yes Left Calf (cm) 29.0 Left Ankle (cm) 25.2 WC - Nurse 2 - General Ulcer CM Notes Start: 06/01/24 11:49 Freq: Status: Active Protocol: Activity Type Activity Date Activity User E-sign Co-sign Detail Recorded Client Recorded Date Recorded By Document 06/01/24 12:11 SONNY [id number] 06/01/24 12:19 SONNY 06/01/24 12:11 Wound Center Nurse 2 #1- L MEDIAL ANKLE -Time 12:11 -Correct Patient Yes -Correct Side, Site, Position Yes -Correct Procedure Yes -Procedure Performed Yes -Type of Procedure Debridement -Clinical Debridement Muscle / Fascia -Tissue Removed Muscle,Fascia, Tendon -Post Debridement (cm) - Length 0.7 -Post Debridement (cm) - Width 0.7 -Post Debridement (cm) - Depth 0.2 -Total Square (Post) (cm) 0.49 -Area of Debridement (cm) - Length 0.7 -Area of Debridement (cm) - Width 0.7 -Total Square (Area) (cm) 0.49 -Tunneling No -Undermining/Tunneling No -Circular Undermining Yes -Wound/Ulcer Outcome Not Healed -Ulcer Cleansing Rinsed/ Irrigated with Saline -Foul Odor after Cleansing No -Bioengineered Tissue No -Bleeding Controlled with Pressure -Treatment Response Procedure Tolerated Well -Offloading No -Debridement - Muscle / Fascia, 1st Yes 20sq cm Pain Scale: 0-10 Numeric Is Patient Pain Free? Yes - Nurse 3 - General Ulcer D/C NN Start: 06/01/24 11:49 Freq: Status: Active Protocol: Activity Type Activity Date Activity User E-sign Co-sign Detail Recorded Client Recorded Date Recorded By Document 06/01/24 12:33 [id number] 06/01/24 12:35 06/01/24 12:33 Wound Care Center Nurse 3 #1- L MEDIAL ANKLE -Ulcer Cleansing Rinsed/ Irrigated with Saline -Primary Dressing Applied Promogran Radha Matter, Silicone Border Foam 4x4 -Promogran Radha Matter 1 -Silicone Border Foam 4x4 1 Treatment Response Procedure Tolerated Well Pain Scale: 0-10 Numeric Is Patient Pain Free? 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 All findings were discussed with the patient. All questions were answered to the patient's satisfaction. Excisional debridement down to including subcutaneous tissue, fascia and muscle to the left lower extremity full-thickness wound with a number 3 mm dermal curette and #15 blade without incident. Predebridement measurement was 1.0 x 0.9 x 0.1 cm. Postdebridement measurement is 1.1 x 1.0 x 0.3 cm. The left ankle was wiped clean and patted dry. Betadine paint followed by dry sterile dressing and Tubigrip was donned to left lower extremity. Patient and his will perform daily dressing changes. We begin authorization through the patient's insurance for amniotic skin graft substitute due to the delayed healing and the patient's full-thickness wound to the medial left ankle. Follow-up at the wound care center with Dr. Mazariegos in 1 week. (2) Other specified peripheral vascular diseases: CODE(S): I73.89 - Other specified peripheral vascular diseases
--- NOTE | 2024-06-08 15:43 | WC ---
Rosa Garcia transfers care of this patient over to Dr. Mazariegos as of 06/08/24
--- NOTE | 2024-06-09 10:39 | WC ---
PHOTO 06/08/24 LEFT TELLO ANKLE
[2024-06-15 11:37] VITALS: BP 127/47; PULSE 82; RESP 20; TEMP 36.3; BMI 22.4
--- NOTE | 2024-06-15 13:57 | PCM.WC.PN ---
History of Present Illness Date of Service: 06/15/24 Chief Complaint: Left medial ankle ulcer History of Wound: Patient is a very pleasant 83 year old male with a left medial ankle ulcer that he has been seeing legislative aide, Dr. Drew. Patient has a significant history for COPD that he sees Palliative care to help manage. He is on home O2. He also has a history of Prostate CA, Squamous carcinoma of left lung, HTN, anxiety and depression, AAA without rupture, CAD, coronary artery stent placement (multiple), CABG x 3, former smoker, PAD, PBH, and pulmonary embolism- on anticoagulants, and hyperlipidemia. He has had arterial studies in the past and had some vascular procedures (by Dr. Freeman) to his left leg. He denies hx of diabetes. His providers are all with [facility]. He has had this left medial ankle ulcer for 3 months. He has been placing Santyl covered with [place] [facility]. There has not been much improvement to this area. He states that he was referred to see us by [facility] and that Dr. Drew also suggested he get a second opinion. He is on a new medication that his states is an antibiotic but they are unsure of the name. He denies fever, chills, nausea or vomiting. He comes in today for further evaluation and treatment. Progress of Wound: Full-thickness wound medial ankle stable Subjective Subjective Mr. Corley is a 83-year-old male presenting to wound care center today for follow-up evaluation of full-thickness wound to the medial left ankle. Patient has been doing dressing change with Betadine paint and sterile Band-Aid. They are here for further evaluation of the full-thickness wound to the medial left ankle. He admits to minimal to no pain. He also is concerned for a pressure sore to the left heel that he has been treating with Betadine paint and a Band-Aid. Denies trauma. Denies constitutional symptoms. No other pedal complaints at this time. Objective Data Objective Data Vital Signs: Vital Signs Temp Pulse Resp BP Pulse Ox O2 Del Method O2 Flow Rate 97.3 F L 82 20 H 127/47 H 95 Nasal Cannula 4 06/15/24 11:37 06/15/24 11:37 06/15/24 11:37 06/15/24 11:37 05/31/24 00:22 06/15/24 11:37 06/15/24 11:37 Oxygen Flow Rate (L/min) 4 Oxygen Delivery Method Nasal Cannula Weight: 74.843 kg Body Mass Index (BMI) 22.4 Lab / Micro Data Micro: Microbiology 06/08/24 11:10 Wound - Ankle Gram Stain - Final 06/08/24 11:10 Wound - Ankle Wound Culture - Final Staphylococcus aureus Coag Negative Staph 06/08/24 11:10 Wound - Ankle Anaerobic Culture - Final No anaerobic bacteria isolated. 06/01/24 12:17 Ulcer, Decubitus - Ankle Gram Stain - Final 06/01/24 12:17 Ulcer, Decubitus - Ankle Wound Culture - Final Corynebacterium striatum 06/01/24 12:17 Ulcer, Decubitus - Ankle Anaerobic Culture - Final No anaerobic bacteria isolated. Physical Exam Narrative Vascular: DP and PT pulses are faintly palpable. CFT is brisk. No erythema appreciated. Skin temp great is warm to cool from proximal ankles to distal digits left lower extremity. Neurological: Light touch intact. Patient does despond painful stimuli. Dermatological: Full-thickness wound to the medial malleolus of the left lower extremity, measuring 1.0 x 1.0 x 0.2 cm. Undermining is appreciated circumferentially at 0.3 cm. Wound base is down to deltoid ligament. Blanchable erythema to periwound with no sign of infection. Excisional debridement down to including subcutaneous tissue, fascia and muscle to the left lower extremity full-thickness wound with a number 3 mm dermal curette and #15 blade without incident. Predebridement measurement was 0.9 x 0.9 x 0.1 cm. Postdebridement measurement is 1.0 x 1.0 x 0.2 cm. EpiFix 18 mm disc was applied to the left full-thickness ulceration with 100% use. First application. The graft site was free and clear of any infection. The wound/skin graft substitute was dressed with nonadherent bandage secured in place with Steri-Strips followed by bolster dressing as well as a double layer Tubigrip. Musculoskeletal: Muscle strength 5 and 5 in all quadrants bilateral. Mild pain to palpation to full-thickness wound to the left lower extremity medial ankle. No pain with calf pressure. Debridement Note Debridement Note Debridement Free Text: Excisional debridement down to including subcutaneous tissue, fascia and muscle to the left lower extremity full-thickness wound with a number 3 mm dermal curette and #15 blade without incident. Predebridement measurement was 0.9 x 0.9 x 0.1 cm. Postdebridement measurement is 1.0 x 1.0 x 0.2 cm. EpiFix 18 mm disc was applied to the left full-thickness ulceration with 100% use. First application. The graft site was free and clear of any infection. The wound/skin graft substitute was dressed with nonadherent bandage secured in place with Steri-Strips followed by bolster dressing as well as a double layer Tubigrip. Post-Debridement Measurements and Additional Note: Post-Debridement Measurements/Treatment - Nurse 1 - General Ulcer Assessment Start: 06/01/24 11:49 Freq: Status: Active Protocol: MILENA Activity Type Activity Date Activity User E-sign Co-sign Detail Recorded Client Recorded Date Recorded By Document 06/01/24 11:49 KW [id number] 06/01/24 11:56 KW Document 06/08/24 10:43 GM [id number] 06/08/24 10:52 GM Document 06/15/24 11:37 CP [id number] 06/15/24 11:39 CP 06/01/24 06/08/24 06/15/24 11:49 10:43 11:37 - Today's Visit Information Type of service Follow-up Visit Follow-up Visit Follow-up Visit (Physician/FUNERAL ARRANGEMENT DIRECTOR (Physician/FUNERAL ARRANGEMENT DIRECTOR (Physician/FUNERAL ARRANGEMENT DIRECTOR ) ) ) Arrival Mode Wheelchair Wheelchair Wheelchair Transfer Assistance None Manual Transfer Assist (Other) 1 Accompanied by Patient Identification Verified (Name & Yes Yes Yes ) Patient Requires Transmission-Based No Precautions Safety Precautions Fall Prevention Height and Weight Body Mass Index (BMI) 22.4 22.4 22.4 BMI Classification Normal Normal Normal Vital Signs Temperature (97.8 F-99.1 F) 96.8 F L 97.1 F L 97.3 F L Temperature Source Temporal Temporal Temporal Pulse Rate (60-100) 73 86 82 Pulse Location Monitor Monitor Monitor Respiratory Rate (12-18) 18 20 H 20 H Respiratory rate source Observation Observation Observation Oxygen Delivery Method Room Air Nasal Cannula Nasal Cannula O2 L/MIN (L/min) 4 4 Blood Pressure (90/60-120/80) 132/65 H 106/58 L 127/47 H Blood Pressure Mean (mm Hg) 87 74 73 Source Monitor Monitor Monitor Position Semi-Fowlers Sitting Sitting Blood Pressure Location Right Arm Left Arm Left Forearm History Since Last Visit- (Skip if this is Patient's initial visit) Have you changed medications since your No Yes No last visit? Any new allergies or adverse reactions No No No Had a fall/change in ADL's that may No No No increase risk of falls Signs or symptoms of abuse and/or No No No neglect since last visit Have you been in the hospital since your No Yes No last visit? Has dressing in place as prescribed Yes Yes No Has compression in place as prescribed N/A N/A No Has offloadiing in place as prescribed N/A N/A N/A Experienced any changes in pain level or No No No management Left Footwear Regular Shoe Regular Shoe Right Footwear Regular Shoe Regular Shoe Pain Scale: 0-10 Numeric Is Patient Pain Free? Yes Yes Yes WC - Nurse 1 - General Ulcer Measurement Start: 06/01/24 11:49 Freq: Status: Active Protocol: Activity Type Activity Date Activity User E-sign Co-sign Detail Recorded Client Recorded Date Recorded By Document 06/01/24 11:49 KW [id number] 06/01/24 11:56 KW Document 06/08/24 10:43 GM [id number] 06/08/24 10:52 GM Document 06/15/24 11:37 CP [id number] 06/15/24 11:39 CP 06/01/24 06/08/24 06/15/24 11:49 10:43 11:37 Wound Center Nurse 1 #1- L MEDIAL ANKLE -Current Size (cm) - Length 0.7 0.5 0.5 -Current Size (cm) - Width 0.7 0.5 0.8 -Current Size (cm) - Depth 0.4 0.3 0.4 -Total Square Cm 0.49 0.25 0.40 -Date of Last Picture (Recall this 06/01/24 06/08/24 06/15/24 field) -Photo Taken Yes Yes -Epithelialization Small 1-33% None Present -Tunneling No No -Undermining/Tunneling No No -Circular Undermining No -Change in Wound Grade/Stage No -Exudate Amt Small Small Small -Exudate Type Serosanguineous Yellow/Green Sanguineous -Wound Margin Thickened & Distinct, Flat & Intact Rolled Under Outline Attached -Granulation Amt None Present (0 Small (1-33%) None Present (0 %) %) -Granulation Quality Hulbert -Slough/Fibrin Yes Yes -Necrosis Amt Large (67-100%) Small (1-33%) Large (67-100%) -Necrotic Tissue Type Adherent Slough Adherent Slough Adherent Slough -Structure Exposed N/A -Texture (Bell-wound Skin Appearance) Assessed, Assessed No Abnormality Localized Edema -Moisture (Bell-wound Skin Appearance) Assessed Assessed, No Abnormality Maceration -Color (Bell-wound Skin Appearance) Assessed, Assessed No Abnormality Erythema -Temperature (Bell-wound Skin No Abnormality No Abnormality No Abnormality Appearance) (Pt Warm) (Pt Warm) (Pt Warm) -Tenderness on Palpation (Bell-wound Yes Yes Skin Appearance) -Ulcer Cleansing Rinsed/ Rinsed/ Rinsed/ Irrigated with Irrigated with Irrigated with Saline Saline Saline -Foul Odor after Cleansing No No No -Anesthetic Used 5% Lidocaine 5% Lidocaine 5% Lidocaine Gel Gel Gel Lower Limb Edema Present Yes Left Calf (cm) 29.0 30 Left Ankle (cm) 25.2 24.5 WC - Nurse 2 - General Ulcer CM Notes Start: 06/01/24 11:49 Freq: Status: Active Protocol: Activity Type Activity Date Activity User E-sign Co-sign Detail Recorded Client Recorded Date Recorded By Document 06/01/24 12:11 [id number] 06/01/24 12:19 Document 06/08/24 11:14 [id number] 06/08/24 11:16 Document 06/15/24 12:02 [id number] 06/15/24 12:05 06/01/24 06/08/24 06/15/24 12:11 11:14 12:02 Wound Center Nurse 2 #1- L MEDIAL ANKLE -Time 12:11 11:15 12:03 -Correct Patient Yes Yes Yes -Correct Side, Site, Position Yes Yes Yes -Correct Procedure Yes Yes Yes -Procedure Performed Yes Yes Yes -Type of Procedure Debridement Debridement Debridement -Clinical Debridement Muscle / Fascia Muscle / Fascia Muscle / Fascia -Tissue Removed Muscle,Fascia, Muscle Muscle Tendon -Post Debridement (cm) - Length 0.7 1.1 1 -Post Debridement (cm) - Width 0.7 1 1 -Post Debridement (cm) - Depth 0.2 0.3 0.2 -Total Square (Post) (cm) 0.49 1.1 1 -Area of Debridement (cm) - Length 0.7 1.1 1 -Area of Debridement (cm) - Width 0.7 1.0 1 -Total Square (Area) (cm) 0.49 1.10 1 -Tunneling No No No -Undermining/Tunneling No No No -Circular Undermining Yes No No -Wound/Ulcer Outcome Not Healed Not Healed Not Healed -Ulcer Cleansing Rinsed/ Rinsed/ Rinsed/ Irrigated with Irrigated with Irrigated with Saline Saline Saline -Foul Odor after Cleansing No No No -Bioengineered Tissue No No Yes -Type of Bioengineered Tissue Epifix 18mm Disc -Expiration Date 12/31/28 -Product Lot Number [id number] -Percent Used 100 -Lot number of Saline Used [id number] -Bleeding Controlled with Pressure Pressure Pressure -Treatment Response Procedure Procedure Procedure Tolerated Well Tolerated Well Tolerated Well -Offloading No No No -Debridement - Muscle / Fascia, 1st Yes Yes No 20sq cm -Apply Skin Sub - 1st 25 sq cm - Legs 1 -Epifix 18mm Disc Application 1-4 3 Pain Scale: 0-10 Numeric Is Patient Pain Free? Yes Yes Yes - Nurse 3 - General Ulcer D/C NN Start: 06/01/24 11:49 Freq: Status: Active Protocol: Activity Type Activity Date Activity User E-sign Co-sign Detail Recorded Client Recorded Date Recorded By Document 06/01/24 12:33 RB [id number] 06/01/24 12:35 RB Document 06/08/24 11:23 KW [id number] 06/08/24 11:24 KW Document 06/15/24 12:18 DS [id number] 06/15/24 12:27 DS 06/01/24 06/08/24 06/15/24 12:33 11:23 12:18 Wound Care Center Nurse 3 #1- L MEDIAL ANKLE -Ulcer Cleansing Rinsed/ Irrigated with Saline -Primary Dressing Applied Promogran C Hydrogel, Radha Matter, Silicone Border Silicone Border Foam 4x4 Foam 4x4 -Other Dressing betadine epifix, painted ulcer woundveil, -Primary Dressing Covered/Secured with Dry Gauze & Roll Gauze, Secured with Tape -Hydrogel 0 -Promogran Radha Matter 1 -Silicone Border Foam 4x4 1 1 LLE -Tubular Bandage Single Layer Single Layer -Size of Tubigrip Used Size E Size F -Size E ($) 1 -Size F ($) 1 Treatment Response Procedure Tolerated Well Pain Scale: 0-10 Numeric Is Patient Pain Free? 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 All findings were discussed with the patient. All questions were answered to the patient's satisfaction. Excisional debridement down to including subcutaneous tissue, fascia and muscle to the left lower extremity full-thickness wound with a number 3 mm dermal curette and #15 blade without incident. Predebridement measurement was 0.9 x 0.9 x 0.1 cm. Postdebridement measurement is 1.0 x 1.0 x 0.2 cm. EpiFix 18 mm disc was applied to the left full-thickness ulceration with 100% use. First application. The graft site was free and clear of any infection. The wound/skin graft substitute was dressed with nonadherent bandage secured in place with Steri-Strips followed by bolster dressing as well as a single layer Tubigrip. Review of the patient's cultures show evidence of colonization for Staph aureus. The patient will be placed on Bactrim DS twice daily for 2 weeks. Patient does have history of GI bleed and will not be placed the patient on doxycycline. Follow-up at the wound care center with Dr. Mazariegos in 1 week. (2) Other specified peripheral vascular diseases: CODE(S): I73.89 - Other specified peripheral vascular diseases
--- NOTE | 2024-06-16 09:50 | WC ---
PHOTO 06/15/24 LEFT [facility] ANKLE
[2024-06-22 13:16] VITALS: BP 136/51; PULSE 84; RESP 20; TEMP 36; BMI 22.4
--- NOTE | 2024-06-22 14:04 | PCM.WC.PN ---
History of Present Illness Date of Service: 06/22/24 Chief Complaint: Left medial ankle ulcer History of Wound: Patient is a very pleasant 83 year old male with a left medial ankle ulcer that he has been seeing federal appellate law clerk, Dr. Drew. Patient has a significant history for COPD that he sees Palliative care to help manage. He is on home O2. He also has a history of Prostate CA, Squamous carcinoma of left lung, HTN, anxiety and depression, AAA without rupture, CAD, coronary artery stent placement (multiple), CABG x 3, former smoker, PAD, PBH, and pulmonary embolism- on anticoagulants, and hyperlipidemia. He has had arterial studies in the past and had some vascular procedures (by Dr. Freeman) to his left leg. He denies hx of diabetes. His providers are all with [facility]. He has had this left medial ankle ulcer for 3 months. He has been placing Santyl covered with [place] SAP. There has not been much improvement to this area. He states that he was referred to see us by [facility] and that Dr. Drew also suggested he get a second opinion. He is on a new medication that his states is an antibiotic but they are unsure of the name. He denies fever, chills, nausea or vomiting. He comes in today for further evaluation and treatment. Progress of Wound: Full-thickness wound medial ankle stable Subjective Subjective Mr. Corley is a 83-year-old male presenting to wound care center today for follow-up evaluation of full-thickness wound to the medial left ankle. He has left the graft clean dry and intact. He is applying Betadine paint to the heel of the heel that was insulted due to pressure. There has been no breakdown of skin or full-thickness wound to the left heel at this time. Overall he is doing well. He is grateful for his care. Denies trauma. Denies constitutional symptoms. No other pedal complaints at this time. Objective Data Objective Data Vital Signs: Vital Signs Temp Pulse Resp BP Pulse Ox O2 Del Method O2 Flow Rate 96.8 F L 84 20 H 136/51 H 95 Nasal Cannula 4 06/22/24 13:16 06/22/24 13:16 06/22/24 13:16 06/22/24 13:16 05/31/24 00:22 06/22/24 13:16 06/15/24 11:37 Oxygen Flow Rate (L/min) 4 Oxygen Delivery Method Nasal Cannula Weight: 74.843 kg Body Mass Index (BMI) 22.4 Lab / Micro Data Micro: Microbiology 06/08/24 11:10 Wound - Ankle Gram Stain - Final 06/08/24 11:10 Wound - Ankle Wound Culture - Final Staphylococcus aureus Coag Negative Staph 06/08/24 11:10 Wound - Ankle Anaerobic Culture - Final No anaerobic bacteria isolated. 06/01/24 12:17 Ulcer, Decubitus - Ankle Gram Stain - Final 06/01/24 12:17 Ulcer, Decubitus - Ankle Wound Culture - Final Corynebacterium striatum 06/01/24 12:17 Ulcer, Decubitus - Ankle Anaerobic Culture - Final No anaerobic bacteria isolated. Physical Exam Narrative Vascular: DP and PT pulses are faintly palpable. CFT is brisk. No erythema appreciated. Skin temp great is warm to cool from proximal ankles to distal digits left lower extremity. Neurological: Light touch intact. Patient does despond painful stimuli. Dermatological: Full-thickness wound to the medial malleolus of the left lower extremity, measuring 0.8 x 1.0 x 0.3 cm undermining is appreciated circumferentially at 0.2 cm. Wound base is down to deltoid ligament. Blanchable erythema to periwound with no sign of infection. Evidence of pressure sore without breakdown of skin to the left heel. Stable no sign of infection. Excisional debridement down to including subcutaneous tissue, fascia and muscle to the left lower extremity full-thickness wound with a number 3 mm dermal curette and #15 blade without incident. Predebridement measurement was 0.7 x 0.9 x 0.2 cm. Postdebridement measurement is 0.8 x 1.0 x 0.3 cm. EpiFix core 2.0 x 3.0 cm was applied to the left full-thickness ulceration with 100% use. 2nd application. The graft site was free and clear of any infection. The wound/skin graft substitute was dressed with nonadherent bandage secured in place with Steri-Strips followed by bolster dressing as well as a double layer Tubigrip. Musculoskeletal: Muscle strength 5 and 5 in all quadrants bilateral. Mild pain to palpation to full-thickness wound to the left lower extremity medial ankle. No pain with calf pressure. Debridement Note Debridement Note Debridement Free Text: Excisional debridement down to including subcutaneous tissue, fascia and muscle to the left lower extremity full-thickness wound with a number 3 mm dermal curette and #15 blade without incident. Predebridement measurement was 0.7 x 0.9 x 0.2 cm. Postdebridement measurement is 0.8 x 1.0 x 0.3 cm. EpiFix core 2.0 x 3.0 cm was applied to the left full-thickness ulceration with 100% use. 2nd application. The graft site was free and clear of any infection. The wound/skin graft substitute was dressed with nonadherent bandage secured in place with Steri-Strips followed by bolster dressing as well as a double layer Tubigrip. Post-Debridement Measurements and Additional Note: Post-Debridement Measurements/Treatment - Nurse 1 - General Ulcer Assessment Start: 06/01/24 11:49 Freq: Status: Active Protocol: WC.LOWEXT Activity Type Activity Date Activity User E-sign Co-sign Detail Recorded Client Recorded Date Recorded By Document 06/01/24 11:49 [id number] 06/01/24 11:56 KW Document 06/08/24 10:43 GM [id number] 06/08/24 10:52 GM Document 06/15/24 11:37 CP [id number] 06/15/24 11:39 CP Document 06/22/24 13:16 KW [id number] 06/22/24 13:28 KW 06/01/24 06/08/24 06/15/24 11:49 10:43 11:37 - Today's Visit Information Type of service Follow-up Visit Follow-up Visit Follow-up Visit (Physician/ROUTE SALES REPRESENTATIVE (Physician/ROUTE SALES REPRESENTATIVE (Physician/ROUTE SALES REPRESENTATIVE ) ) ) Arrival Mode Wheelchair Wheelchair Wheelchair Transfer Assistance None Manual Transfer Assist (Other) 1 Accompanied by Patient Identification Verified (Name & Yes Yes Yes ) Patient Requires Transmission-Based No Precautions Safety Precautions Fall Prevention Height and Weight Body Mass Index (BMI) 22.4 22.4 22.4 BMI Classification Normal Normal Normal Vital Signs Temperature (97.8 F-99.1 F) 96.8 F L 97.1 F L 97.3 F L Temperature Source Temporal Temporal Temporal Pulse Rate (60-100) 73 86 82 Pulse Location Monitor Monitor Monitor Respiratory Rate (12-18) 18 20 H 20 H Respiratory rate source Observation Observation Observation Oxygen Delivery Method Room Air Nasal Cannula Nasal Cannula O2 L/MIN (L/min) 4 4 Blood Pressure (90/60-120/80) 132/65 H 106/58 L 127/47 H Blood Pressure Mean (mm Hg) 87 74 73 Source Monitor Monitor Monitor Position Semi-Fowlers Sitting Sitting Blood Pressure Location Right Arm Left Arm Left Forearm History Since Last Visit- (Skip if this is Patient's initial visit) Have you changed medications since your No Yes No last visit? Any new allergies or adverse reactions No No No Had a fall/change in ADL's that may No No No increase risk of falls Signs or symptoms of abuse and/or No No No neglect since last visit Have you been in the hospital since your No Yes No last visit? Has dressing in place as prescribed Yes Yes No Has compression in place as prescribed N/A N/A No Has offloadiing in place as prescribed N/A N/A N/A Experienced any changes in pain level or No No No management Left Footwear Regular Shoe Regular Shoe Right Footwear Regular Shoe Regular Shoe Pain Scale: 0-10 Numeric Is Patient Pain Free? Yes Yes Yes 06/22/24 13:16 - Today's Visit Information Type of service Follow-up Visit (Physician/ROUTE SALES REPRESENTATIVE ) Arrival Mode Wheelchair Transfer Assistance Transfer Assist (Other) Accompanied by Patient Identification Verified (Name & Yes ) Patient Requires Transmission-Based Precautions Safety Precautions Height and Weight Body Mass Index (BMI) 22.4 BMI Classification Normal Vital Signs Temperature (97.8 F-99.1 F) 96.8 F L Temperature Source Temporal Pulse Rate (60-100) 84 Pulse Location Monitor Respiratory Rate (12-18) 20 H Respiratory rate source Observation Oxygen Delivery Method Nasal Cannula O2 L/MIN (L/min) Blood Pressure (90/60-120/80) 136/51 H Blood Pressure Mean (mm Hg) 79 Source Monitor Position Semi-Fowlers Blood Pressure Location Left Arm History Since Last Visit- (Skip if this is Patient's initial visit) Have you changed medications since your No last visit? Any new allergies or adverse reactions No Had a fall/change in ADL's that may No increase risk of falls Signs or symptoms of abuse and/or No neglect since last visit Have you been in the hospital since your No last visit? Has dressing in place as prescribed Yes Has compression in place as prescribed Yes Has offloadiing in place as prescribed N/A Experienced any changes in pain level or No management Left Footwear Regular Shoe Right Footwear Regular Shoe Pain Scale: 0-10 Numeric Is Patient Pain Free? Yes WC - Nurse 1 - General Ulcer Measurement Start: 06/01/24 11:49 Freq: Status: Active Protocol: Activity Type Activity Date Activity User E-sign Co-sign Detail Recorded Client Recorded Date Recorded By Document 06/01/24 11:49 KW [id number] 06/01/24 11:56 KW Document 06/08/24 10:43 GM [id number] 06/08/24 10:52 GM Document 06/15/24 11:37 CP [id number] 06/15/24 11:39 CP Document 06/22/24 13:16 KW [id number] 06/22/24 13:28 KW 06/01/24 06/08/24 06/15/24 11:49 10:43 11:37 Wound Center Nurse 1 #1- L MEDIAL ANKLE -Current Size (cm) - Length 0.7 0.5 0.5 -Current Size (cm) - Width 0.7 0.5 0.8 -Current Size (cm) - Depth 0.4 0.3 0.4 -Total Square Cm 0.49 0.25 0.40 -Date of Last Picture (Recall this 06/01/24 06/08/24 06/15/24 field) -Photo Taken Yes Yes -Epithelialization Small 1-33% None Present -Tunneling No No -Undermining/Tunneling No No -Circular Undermining No -Change in Wound Grade/Stage No -Exudate Amt Small Small Small -Exudate Type Serosanguineous Yellow/Green Sanguineous -Wound Margin Thickened & Distinct, Flat & Intact Rolled Under Outline Attached -Granulation Amt None Present (0 Small (1-33%) None Present (0 %) %) -Granulation Quality [place] -Slough/Fibrin Yes Yes -Necrosis Amt Large (67-100%) Small (1-33%) Large (67-100%) -Necrotic Tissue Type Adherent Slough Adherent Slough Adherent Slough -Structure Exposed N/A -Texture (Bell-wound Skin Appearance) Assessed, Assessed No Abnormality Localized Edema -Moisture (Bell-wound Skin Appearance) Assessed Assessed, No Abnormality Maceration -Color (Bell-wound Skin Appearance) Assessed, Assessed No Abnormality Erythema -Temperature (Bell-wound Skin No Abnormality No Abnormality No Abnormality Appearance) (Pt Warm) (Pt Warm) (Pt Warm) -Tenderness on Palpation (Bell-wound Yes Yes Skin Appearance) -Ulcer Cleansing Rinsed/ Rinsed/ Rinsed/ Irrigated with Irrigated with Irrigated with Saline Saline Saline -Foul Odor after Cleansing No No No -Anesthetic Used 5% Lidocaine 5% Lidocaine 5% Lidocaine Gel Gel Gel Lower Limb Edema Present Yes Left Calf (cm) 29.0 30 Left Ankle (cm) 25.2 24.5 06/22/24 13:16 Wound Center Nurse 1 #1- L MEDIAL ANKLE -Current Size (cm) - Length 0.9 -Current Size (cm) - Width 0.8 -Current Size (cm) - Depth 0.3 -Total Square Cm 0.72 -Date of Last Picture (Recall this field) -Photo Taken -Epithelialization -Tunneling -Undermining/Tunneling -Circular Undermining Yes -Change in Wound Grade/Stage -Exudate Amt Medium -Exudate Type Serosanguineous -Wound Margin Thickened & Rolled Under -Granulation Amt None Present (0 %) -Granulation Quality -Slough/Fibrin -Necrosis Amt Large (67-100%) -Necrotic Tissue Type Adherent Slough -Structure Exposed -Texture (Bell-wound Skin Appearance) Assessed, Localized Edema -Moisture (Bell-wound Skin Appearance) Assessed -Color (Bell-wound Skin Appearance) Assessed, Erythema -Temperature (Bell-wound Skin No Abnormality Appearance) (Pt Warm) -Tenderness on Palpation (Bell-wound No Skin Appearance) -Ulcer Cleansing Soap and Water -Foul Odor after Cleansing No -Anesthetic Used 5% Lidocaine Gel Lower Limb Edema Present Left Calf (cm) 31 Left Ankle (cm) 25.3 - Nurse 2 - General Ulcer CM Notes Start: 06/01/24 11:49 Freq: Status: Active Protocol: Activity Type Activity Date Activity User E-sign Co-sign Detail Recorded Client Recorded Date Recorded By Document 06/01/24 12:11 SONNY [id number] 06/01/24 12:19 SONNY Document 06/08/24 11:14 SONNY [id number] 06/08/24 11:16 Document 06/15/24 12:02 SONNY [id number] 06/15/24 12:05 JF Document 06/22/24 13:36 [id number] 06/22/24 13:39 JF 06/01/24 06/08/24 06/15/24 12:11 11:14 12:02 Wound Center Nurse 2 #1- L MEDIAL ANKLE -Time 12:11 11:15 12:03 -Correct Patient Yes Yes Yes -Correct Side, Site, Position Yes Yes Yes -Correct Procedure Yes Yes Yes -Procedure Performed Yes Yes Yes -Type of Procedure Debridement Debridement Debridement -Clinical Debridement Muscle / Fascia Muscle / Fascia Muscle / Fascia -Tissue Removed Muscle,Fascia, Muscle Muscle Tendon -Post Debridement (cm) - Length 0.7 1.1 1 -Post Debridement (cm) - Width 0.7 1 1 -Post Debridement (cm) - Depth 0.2 0.3 0.2 -Total Square (Post) (cm) 0.49 1.1 1 -Area of Debridement (cm) - Length 0.7 1.1 1 -Area of Debridement (cm) - Width 0.7 1.0 1 -Total Square (Area) (cm) 0.49 1.10 1 -Tunneling No No No -Undermining/Tunneling No No No -Circular Undermining Yes No No -Wound/Ulcer Outcome Not Healed Not Healed Not Healed -Ulcer Cleansing Rinsed/ Rinsed/ Rinsed/ Irrigated with Irrigated with Irrigated with Saline Saline Saline -Foul Odor after Cleansing No No No -Bioengineered Tissue No No Yes -Type of Bioengineered Tissue Epifix 18mm Disc -Expiration Date 12/31/28 -Product Lot Number [id number] -Percent Used 100 -Lot number of Saline Used [id number] -Bleeding Controlled with Pressure Pressure Pressure -Treatment Response Procedure Procedure Procedure Tolerated Well Tolerated Well Tolerated Well -Offloading No No No -Debridement - Subq, 1st 20sq cm -Debridement - Muscle / Fascia, 1st Yes Yes No 20sq cm -Apply Skin Sub - 1st 25 sq cm - Legs 1 -Epicord Application 1-4 (per sq cm) -Epifix 18mm Disc Application 1-4 3 Pain Scale: 0-10 Numeric Is Patient Pain Free? Yes Yes Yes 06/22/24 13:36 Wound Center Nurse 2 #1- L MEDIAL ANKLE -Time 13:37 -Correct Patient Yes -Correct Side, Site, Position Yes -Correct Procedure Yes -Procedure Performed Yes -Type of Procedure Debridement -Clinical Debridement Muscle / Fascia -Tissue Removed Muscle -Post Debridement (cm) - Length 0.8 -Post Debridement (cm) - Width 1.0 -Post Debridement (cm) - Depth 0.3 -Total Square (Post) (cm) 0.80 -Area of Debridement (cm) - Length 0.8 -Area of Debridement (cm) - Width 1.0 -Total Square (Area) (cm) 0.80 -Tunneling No -Undermining/Tunneling No -Circular Undermining No -Wound/Ulcer Outcome Not Healed -Ulcer Cleansing Rinsed/ Irrigated with Saline -Foul Odor after Cleansing No -Bioengineered Tissue Yes -Type of Bioengineered Tissue Epicord -Expiration Date 10/31/28 -Product Lot Number [id number] -Percent Used 100 -Lot number of Saline Used [id number] -Bleeding Controlled with Pressure -Treatment Response Procedure Tolerated Well -Offloading No -Debridement - Subq, 1st 20sq cm No -Debridement - Muscle / Fascia, 1st No 20sq cm -Apply Skin Sub - 1st 25 sq cm - Legs 1 -Epicord Application 1-4 (per sq cm) 6 -Epifix 18mm Disc Application 1-4 Pain Scale: 0-10 Numeric Is Patient Pain Free? Yes WC - Nurse 3 - General Ulcer D/C NN Start: 06/01/24 11:49 Freq: Status: Active Protocol: Activity Type Activity Date Activity User E-sign Co-sign Detail Recorded Client Recorded Date Recorded By Document 06/01/24 12:33 RB [id number] 06/01/24 12:35 RB Document 06/08/24 11:23 KW [id number] 06/08/24 11:24 KW Document 06/15/24 12:18 DS [id number] 06/15/24 12:27 DS Document 06/22/24 13:54 KW [id number] 06/22/24 13:55 KW 06/01/24 06/08/24 06/15/24 12:33 11:23 12:18 Wound Care Center Nurse 3 #2 L LAT HEEL -Primary Dressing Applied -Other Dressing -Silicone Border Foam 4x4 #1- L MEDIAL ANKLE -Ulcer Cleansing Rinsed/ Irrigated with Saline -Primary Dressing Applied Promogran C Hydrogel, Radha Matter, Silicone Border Silicone Border Foam 4x4 Foam 4x4 -Other Dressing betadine epifix, painted ulcer woundveil, -Primary Dressing Covered/Secured with Dry Gauze & Roll Gauze, Secured with Tape -Hydrogel 0 -Promogran Radha Matter 1 -Silicone Border Foam 4x4 1 1 -Wound Comment(s) LLE -Tubular Bandage Single Layer Single Layer -Size of Tubigrip Used Size E Size F -Size E ($) 1 -Size F ($) 1 Treatment Response Procedure Tolerated Well Pain Scale: 0-10 Numeric Is Patient Pain Free? Yes Yes Yes WC - Visit Discharge Discharge Condition Stable Stable Stable Ambulatory Status Wheelchair Wheelchair Ambulatory, Wheelchair Transportation Private Auto Private Auto Private Auto Medication Reconcilliation completed & No No provided to patient/care provider Clinical Summary of Care Provided Yes Yes 06/22/24 13:54 Wound Care Center Nurse 3 #2 L LAT HEEL -Primary Dressing Applied Silicone Border Foam 4x4 -Other Dressing betadine -Silicone Border Foam 4x4 1 #1- L MEDIAL ANKLE -Ulcer Cleansing -Primary Dressing Applied Silicone Border Foam 4x4 -Other Dressing -Primary Dressing Covered/Secured with -Hydrogel -Promogran Radha Matter -Silicone Border Foam 4x4 1 -Wound Comment(s) applied extra steri strips LLE -Tubular Bandage -Size of Tubigrip Used -Size E ($) -Size F ($) Treatment Response Pain Scale: 0-10 Numeric Is Patient Pain Free? 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 All findings were discussed with the patient. All questions were answered to the patient's satisfaction. Excisional debridement down to including subcutaneous tissue, fascia and muscle to the left lower extremity full-thickness wound with a number 3 mm dermal curette and #15 blade without incident. Predebridement measurement was 0.7 x 0.9 x 0.2 cm. Postdebridement measurement is 0.8 x 1.0 x 0.3 cm. EpiFix core 2.0 x 3.0 cm was applied to the left full-thickness ulceration with 100% use. 2nd application. The graft site was free and clear of any infection. The wound/skin graft substitute was dressed with nonadherent bandage secured in place with Steri-Strips followed by bolster dressing as well as a double layer Tubigrip. Patient will continue antibiotics as prescribed. The patient will follow-up with Dr. Mcadams in 1 week and then return to see Dr. Mazariegos in 2 weeks. (2) Other specified peripheral vascular diseases: CODE(S): I73.89 - Other specified peripheral vascular diseases
== END 2024-06-29 23:59 | disposition home or self-care (01) ==
LOC: WC 13:30
PROVIDERS: PCP Family Medicine; Referring Provider Podiatrist Foot & Ankle Surgery; Visit Provider Podiatrist Foot & Ankle Surgery
DX: L97.325 Non-pressure chronic ulcer of left ankle with muscle involvement without evidence of necrosis (principal); J44.9 Chronic obstructive pulmonary disease, unspecified; I10 Essential (primary) hypertension; Z51.5 Encounter for palliative care; Z79.82 Long term (current) use of aspirin; Z86.16 Personal history of COVID-19; Z79.51 Long term (current) use of inhaled steroids; Z95.5 Presence of coronary angioplasty implant and graft; I25.10 Atherosclerotic heart disease of native coronary artery without angina pectoris; Z87.891 Personal history of nicotine dependence; Z82.49 Family history of ischemic heart disease and other diseases of the circulatory system; F41.9 Anxiety disorder, unspecified; I73.89 Other specified peripheral vascular diseases; Z95.1 Presence of aortocoronary bypass graft; Z85.46 Personal history of malignant neoplasm of prostate; Z86.711 Personal history of pulmonary embolism; Z79.01 Long term (current) use of anticoagulants; Z85.118 Personal history of other malignant neoplasm of bronchus and lung; Z99.81 Dependence on supplemental oxygen; E78.5 Hyperlipidemia, unspecified
CPT/HCPCS: 11043; 15271; 87070; 87075; 87077; 87186; 87205; Q4186; Q4187

== ENCOUNTER → 2024-06-30 | Outpatient (CLI) | payer MEDICARE, BC, SELFPAY ==
[2024-06-30 14:58] LABS: Erythrocyte Sedimentation Rate 23 mm/hr (0-20)
== END | disposition home or self-care (01) ==
LOC: LAB 13:47
PROVIDERS: PCP Family Medicine; Referring Provider Student in an Organized Health Care Education/Training Program; Visit Provider Student in an Organized Health Care Education/Training Program
DX: K52.9 Noninfective gastroenteritis and colitis, unspecified (principal)
CPT/HCPCS: 36415; 83516; 85652; 86036; 86140; 86671

== ENCOUNTER 2024-07-27 11:00 | Outpatient (RCR) | payer MEDICARE, BC, SELFPAY ==
[2024-06-30 00:29] VITALS: BP 136/51; PULSE 84; RESP 20; TEMP 36; O2SAT 95; BMI 22.4
[2024-07-06 14:11] VITALS: BP 104/49; PULSE 72; RESP 22; TEMP 36.1; O2SAT 93; BMI 22.4
--- NOTE | 2024-07-06 14:41 | PN.PCM_ITS ---
History of Present Illness Date of Service: 07/06/24 Chief Complaint: Left medial ankle ulcer History of Wound: Patient is a very pleasant 83 year old male with a left medial ankle ulcer that he has been seeing sap portal architect, Dr. Drew. Patient has a significant history for COPD that he sees Palliative care to help manage. He is on home O2. He also has a history of Prostate CA, Squamous carcinoma of left lung, HTN, anxiety and depression, AAA without rupture, CAD, coronary artery stent placement (multiple), CABG x 3, former smoker, PAD, PBH, and pulmonary embolism- on anticoagulants, and hyperlipidemia. He has had arterial studies in the past and had some vascular procedures (by Dr. Freeman) to his left leg. He denies hx of diabetes. His providers are all with [facility]. He has had this left medial ankle ulcer for 3 months. He has been placing Santyl covered with [place] SAP. There has not been much improvement to this area. He states that [facility] and that Dr. Drew also suggested he get a second opinion. He is on a new medication that his states is an antibiotic but they are unsure of the name. He denies fever, chills, nausea or vomiting. He comes in today for further evaluation and treatment. Progress of Wound: Stable full-thickness wound medial left ankle. Subjective Subjective Mr. Corley is a 83-year-old male presenting to the wound care center today follow-up evaluation of full-thickness wound to the medial left ankle as well as new abrasion to the first metatarsophalangeal joint of the left foot. Patient s truck his foot with his walker causing an abrasion that is healing uneventfully to the first metatarsophalangeal joint of the left foot. He has left his dressing clean dry and intact. The patient did miss his last appointment secondary to feeling under the weather and is presenting today for further and continued evaluation. He denies any constitutional symptoms. No other pedal complaints at this time. Objective Data Objective Data Vital Signs: Vital Signs Temp Pulse Resp BP Pulse Ox O2 Del Method O2 Flow Rate 97 F L 72 22 H 104/49 L 93 Nasal Cannula 4 07/06/24 14:11 07/06/24 14:11 07/06/24 14:11 07/06/24 14:11 07/06/24 14:11 07/06/24 14:11 07/06/24 14:11 Oxygen Flow Rate (L/min) 4 Oxygen Delivery Method Nasal Cannula Weight: 74.843 kg Body Mass Index (BMI) 22.4 Lab / Micro Data Micro: Microbiology 06/08/24 11:10 Wound - Ankle Gram Stain - Final 06/08/24 11:10 Wound - Ankle Wound Culture - Final Staphylococcus aureus Coag Negative Staph 06/08/24 11:10 Wound - Ankle Anaerobic Culture - Final No anaerobic bacteria isolated. 06/01/24 12:17 Ulcer, Decubitus - Ankle Gram Stain - Final 06/01/24 12:17 Ulcer, Decubitus - Ankle Wound Culture - Final Corynebacterium striatum 06/01/24 12:17 Ulcer, Decubitus - Ankle Anaerobic Culture - Final No anaerobic bacteria isolated. Physical Exam Narrative Vascular: DP and PT pulses are faintly palpable. CFT is brisk. No erythema chasidy reciated. Skin temp great is warm to cool from proximal ankles to distal digits left lower extremity. Neurological: Light touch intact. Patient does despond painful stimuli. Dermatological: Soft tissue abrasion with sanguinous crust measuring 0.1 x 0.1 x 0.1 cm to the left first metatarsophalangeal joint. Full-thickness wound to the medial malleolus of the left lower extremity, measuring 1.1 x 1.0 x 0.2 cm. wound base is down to deltoid ligament. Blanchable erythema to periwound with no sign of infection. Excisional debridement down to including subcutaneous tissue, fascia and muscle to the left lower extremity full-thickness wound with a number 3 mm dermal curette and #15 blade without incident. Predebridement measurement was 1.0 x 0.9 x 0.1 cm. Postdebridement measurement is 1.1 x 1.0 x 0.2 cm. EpiFix cord 2.0 x 3.0 cm was applied to the left full-thickness ulceration with 100% use. 3rd application. The graft site was free and clear of any infection. The wound/skin graft substitute was dressed with nonadherent bandage secured in place with Steri-Strips followed by bolster dressing as well as a double layer Tubigrip. Musculoskeletal: Muscle strength 5 and 5 in all quadrants bilateral. Mild pain to palpation to full-thickness wound to the left lower extremity medial ankle. No pain with calf pressure. Debridement Note Debridement Note Debridement Free Text: Excisional debridement down to including subcutaneous tissue, fascia and muscle to the left lower extremity full-thickness wound with a number 3 mm dermal curette and #15 blade without incident. Predebridement measurement was 1.0 x 0.9 x 0.1 cm. Postdebridement measurement is 1.1 x 1.0 x 0.2 cm. EpiFix cord 2.0 x 3.0 cm was applied to the left full-thickness ulceration with 100% use. 3rd application. The graft site was free and clear of any infection. The wound/skin graft substitute was dressed with nonadherent bandage secured in place with Steri-Strips followed by bolster dressing as well as a double layer Tubigrip. Post-Debridement Measurements and Additional Note: Post-Debridement Measurements/Treatment WC - Nurse 1 - General Ulcer Assessment Start: 07/06/24 14:11 Freq: Status: Active Protocol: MILENA Activity Type Activity Date Activity User E-sign Co-sign Detail Recorded Client Recorded Date Recorded By Document 07/06/24 14:11 ME [id number] 07/06/24 14:21 ME 07/06/24 14:11 - Today's Visit Information Type of service Follow-up Visit (Physician/ASSOCIATE DATA SCIENTIST ) Arrival Mode Ambulatory Accompanied by Patient Identification Verified (Name & Yes ) Safety Precautions Fall Prevention Height and Weight Body Mass Index (BMI) 22.4 BMI Classification Normal Vital Signs Temperature (97.8 F-99.1 F) 97 F L Temperature Source Temporal Pulse Rate (60-100) 72 Pulse Location Monitor Respiratory Rate (12-18) 22 H Respiratory rate source Observation Pulse Oximetry 93 Oxygen Delivery Method Nasal Cannula O2 L/MIN (L/min) 4 Blood Pressure (90/60-120/80) 104/49 L Blood Pressure Mean (mm Hg) 67 Source Monitor Position Sitting Blood Pressure Location Right Arm History Since Last Visit- (Skip if this is Patient's initial visit) Has dressing in place as prescribed Yes Has compression in place as prescribed Yes Has offloadiing in place as prescribed Yes Experienced any changes in pain level or Yes management Left Footwear Regular Shoe Right Footwear Regular Shoe Pain Scale: 0-10 Numeric Is Patient Pain Free? Yes - Nurse 1 - General Ulcer Measurement Start: 07/06/24 14:11 Freq: Status: Active Protocol: Activity Type Activity Date Activity User E-sign Co-sign Detail Recorded Client Recorded Date Recorded By Document 07/06/24 14:11 ME [id number] 07/06/24 14:21 ME 07/06/24 14:11 Wound Center Nurse 1 #2 L LAT HEEL -Current Size (cm) - Length 2 -Current Size (cm) - Width 0.7 -Current Size (cm) - Depth 0.1 -Total Square Cm 1.4 -Photo Taken No -Tunneling No -Undermining/Tunneling No -Circular Undermining No -Exudate Amt None Present -Wound Margin Flat & Intact -Granulation Amt Large (67-100%) -Granulation Quality Pale,[place] -Texture (Bell-wound Skin Appearance) Assessed -Moisture (Bell-wound Skin Appearance) Assessed -Color (Bell-wound Skin Appearance) Assessed -Temperature (Bell-wound Skin No Abnormality Appearance) (Pt Warm) -Tenderness on Palpation (Bell-wound No Skin Appearance) -Ulcer Cleansing Soap and Water -Foul Odor after Cleansing No -Anesthetic Used 5% Lidocaine Gel #1- L MEDIAL ANKLE -Current Size (cm) - Length 1.1 -Current Size (cm) - Width 1.0 -Current Size (cm) - Depth 0.2 -Total Square Cm 1.10 -Photo Taken No -Tunneling No -Undermining/Tunneling No -Circular Undermining No -Exudate Amt Small -Exudate Type Serosanguineous -Wound Margin Thickened & Rolled Under -Granulation Amt Small (1-33%) -Granulation Quality Pale,[place] -Necrosis Amt Large (67-100%) -Necrotic Tissue Type Adherent Slough -Texture (Bell-wound Skin Appearance) Assessed -Moisture (Bell-wound Skin Appearance) Assessed, Maceration -Color (Bell-wound Skin Appearance) Assessed -Temperature (Bell-wound Skin No Abnormality Appearance) (Pt Warm) -Tenderness on Palpation (Bell-wound No Skin Appearance) -Ulcer Cleansing Soap and Water -Foul Odor after Cleansing No -Anesthetic Used 5% Lidocaine Gel Left Calf (cm) 28 Left Ankle (cm) 25 WC - Nurse 2 - General Ulcer CM Notes Start: 07/06/24 14:11 Freq: Status: Active Protocol: Activity Type Activity Date Activity User E-sign Co-sign Detail Recorded Client Recorded Date Recorded By Document 07/06/24 14:32 SONNY [id number] 07/06/24 14:39 SONNY 07/06/24 14:32 Wound Center Nurse 2 #2 L LAT HEEL -Correct Patient Yes -Correct Side, Site, Position No -Correct Procedure No -Procedure Performed No -Post Debridement (cm) - Length 0 -Post Debridement (cm) - Width 0 -Post Debridement (cm) - Depth 0 -Total Square (Post) (cm) 0 -Area of Debridement (cm) - Length 0 -Area of Debridement (cm) - Width 0 -Total Square (Area) (cm) 0 -Wound/Ulcer Outcome Healed- Epithelialized #1- L MEDIAL ANKLE -Time 14:35 -Correct Patient Yes -Correct Side, Site, Position Yes -Correct Procedure Yes -Procedure Performed Yes -Type of Procedure Debridement -Clinical Debridement Muscle / Fascia -Tissue Removed Muscle -Post Debridement (cm) - Length 1.1 -Post Debridement (cm) - Width 1.0 -Post Debridement (cm) - Depth 0.2 -Total Square (Post) (cm) 1.10 -Area of Debridement (cm) - Length 1.1 -Area of Debridement (cm) - Width 1.0 -Total Square (Area) (cm) 1.10 -Tunneling No -Undermining/Tunneling No -Circular Undermining No -Wound/Ulcer Outcome Not Healed -Ulcer Cleansing Rinsed/ Irrigated with Saline -Foul Odor after Cleansing No -Bioengineered Tissue Yes -Type of Bioengineered Tissue Epicord -Expiration Date 10/31/28 -Product Lot Number [id number] -Percent Used 100 -Lot number of Saline Used [id number] -Bleeding Controlled with Pressure -Treatment Response Procedure Tolerated Well -Offloading No -Debridement - Subq, 1st 20sq cm No -Debridement - Muscle / Fascia, 1st No 20sq cm -Apply Skin Sub - 1st 25 sq cm - Legs 1 -Epicord Application 1-4 (per sq cm) 6 Pain Scale: 0-10 Numeric Is Patient Pain Free? 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 All findings were discussed with the patient. All questions were answered to the patient's satisfaction. Excisional debridement down to including subcutaneous tissue, fascia and muscle to the left lower extremity full-thickness wound with a number 3 mm dermal curette and #15 blade without incident. Predebridement measurement was 1.0 x 0.9 x 0.1 cm. Postdebridement measurement is 1.1 x 1.0 x 0.2 cm. EpiFix cord 2.0 x 3.0 cm was applied to the left full-thickness ulceration with 100% use. 3rd application. The graft site was free and clear of any infection. The wound/skin graft substitute was dressed with nonadherent bandage secured in place with Steri-Strips followed by bolster dressing as well as a double layer Tubigrip. Betadine paint was applied to the abrasion on the first metatarsophalangeal joint of the left foot. They will continue daily dressing changes as discussed. The patient will follow-up with Dr. Mazariegos in 1 weeks. (2) Other specified peripheral vascular diseases: CODE(S): I73.89 - Other specified peripheral vascular diseases
[2024-07-13 14:06] VITALS: BP 98/65; PULSE 75; RESP 18; TEMP 36.1; BMI 22.4
--- NOTE | 2024-07-13 14:56 | PCM.WC.PN ---
History of Present Illness Date of Service: 07/13/24 Chief Complaint: Left medial ankle ulcer History of Wound: Patient is a very pleasant 83 year old male with a left medial ankle ulcer that he has been seeing traveling engineer, Dr. Drew. Patient has a significant history for COPD that he sees Palliative care to help manage. He is on home O2. He also has a history of Prostate CA, Squamous carcinoma of left lung, HTN, anxiety and depression, AAA without rupture, CAD, coronary artery stent placement (multiple), CABG x 3, former smoker, PAD, PBH, and pulmonary embolism- on anticoagulants, and hyperlipidemia. He has had arterial studies in the past and had some vascular procedures (by Dr. Freeman) to his left leg. He denies hx of diabetes. His providers are all with [facility]. He has had this left medial ankle ulcer for 3 months. He has been placing Santyl covered with [place] [facility]. There has not been much improvement to this area. He states that he was referred to see us by [facility] and that Dr. Drew also suggested he get a second opinion. He is on a new medication that his states is an antibiotic but they are unsure of the name. He denies fever, chills, nausea or vomiting. He comes in today for further evaluation and treatment. Progress of Wound: Stable full-thickness wound medial left ankle. Subjective Subjective Mr. Corley is a 83-year-old male presenting to clinic today follow-up evaluation of full-thickness wound to the medial ankle left lower extremity. He has left the amnion skin graft substitute clean dry and intact. He also is complaining to some redness to the big toe joint on the right foot secondary to trauma. He does have a scab to the area and has not been treating it. He is concerned for infection. He denies constitutional symptoms. No other pedal complaints at this time. Objective Data Objective Data Vital Signs: Vital Signs Temp Pulse Resp BP Pulse Ox O2 Del Method O2 Flow Rate 96.9 F L 75 18 98/65 93 Nasal Cannula 4 07/13/24 14:06 07/13/24 14:06 07/13/24 14:06 07/13/24 14:06 07/06/24 14:11 07/06/24 14:11 07/06/24 14:11 Oxygen Flow Rate (L/min) 4 Oxygen Delivery Method Nasal Cannula Weight: 74.843 kg Body Mass Index (BMI) 22.4 Lab / Micro Data Micro: Microbiology 06/08/24 11:10 Wound - Ankle Gram Stain - Final 06/08/24 11:10 Wound - Ankle Wound Culture - Final Staphylococcus aureus Coag Negative Staph 06/08/24 11:10 Wound - Ankle Anaerobic Culture - Final No anaerobic bacteria isolated. 06/01/24 12:17 Ulcer, Decubitus - Ankle Gram Stain - Final 06/01/24 12:17 Ulcer, Decubitus - Ankle Wound Culture - Final Corynebacterium striatum 06/01/24 12:17 Ulcer, Decubitus - Ankle Anaerobic Culture - Final No anaerobic bacteria isolated. Physical Exam Narrative Vascular: DP and PT pulses are faintly palpable. CFT is brisk. Blanchable erythema appreciated to the medial ankle and first metatarsophalangeal joint to the left foot. Skin temp great is warm to cool from proximal ankles to distal digits left lower extremity. Neurological: Light touch intact. Patient does despond painful stimuli. Dermatological: Evidence of soft tissue abrasion to the first metatarsal phalangeal joint with sanguinous crust that was debrided with a full-thickness wound measuring 0.8 x 1.9 x 0.1 cm. Full-thickness wound to the medial left ankle measuring 1.1 x 1.2 x 0.1 cm. Blanchable erythema is appreciated to the periwound to both ulcer sites. No drainage. Negative probe to bone. Excisional debridement down to including subcutaneous tissue, fascia and muscle to the left lower extremity full-thickness wound with a number 3 mm dermal curette and #15 blade without incident. Predebridement measurement was 1.0 x 1.0 x 0.1 cm. Postdebridement measurement is 1.1 x 1.2 x 0.2 cm. EpiFix 18 mm disc was applied to the left full-thickness ulceration with 100% use. Fourth application. The graft site was free and clear of any infection. The wound/skin graft substitute was dressed with nonadherent bandage secured in place with Steri-Strips followed by bolster dressing as well as a double layer Tubigrip. Excision debridement down to and including subcutaneous tissue to the sanguinous crust to the dorsal aspect of the first metatarsophalangeal joint of the left foot done without incident with a sterile pickup and 15 blade. Predebridement measurement was sanguinous crust. Postdebridement measurement was 0.8 x 1.9 x 0.1 cm. Musculoskeletal: Muscle strength 5 and 5 in all quadrants bilateral. Mild pain to palpation to full-thickness wound to the left lower extremity medial ankle. No pain with calf pressure. Debridement Note Debridement Note Debridement Free Text: Excisional debridement down to including subcutaneous tissue, fascia and muscle to the left lower extremity full-thickness wound with a number 3 mm dermal curette and #15 blade without incident. Predebridement measurement was 1.0 x 1.0 x 0.1 cm. Postdebridement measurement is 1.1 x 1.2 x 0.2 cm. EpiFix 18 mm disc was applied to the left full-thickness ulceration with 100% use. Fourth application. The graft site was free and clear of any infection. The wound/skin graft substitute was dressed with nonadherent bandage secured in place with Steri-Strips followed by bolster dressing as well as a double layer Tubigrip. Excision debridement down to and including subcutaneous tissue to the sanguinous crust to the dorsal aspect of the first metatarsophalangeal joint of the left foot done without incident with a sterile pickup and 15 blade. Predebridement measurement was sanguinous crust. Postdebridement measurement was 0.8 x 1.9 x 0.1 cm. Post-Debridement Measurements and Additional Note: Post-Debridement Measurements/Treatment - Nurse 1 - General Ulcer Assessment Start: 07/06/24 14:11 Freq: Status: Active Protocol: MILENA Activity Type Activity Date Activity User E-sign Co-sign Detail Recorded Client Recorded Date Recorded By Document 07/06/24 14:11 MT [id number] 07/06/24 14:21 MT Document 07/13/24 14:06 RB [id number] 07/13/24 14:09 RB 07/06/24 07/13/24 14:11 14:06 - Today's Visit Information Type of service Follow-up Visit Follow-up Visit (Physician/PROCESS HELPER (Physician/PROCESS HELPER ) ) Arrival Mode Ambulatory Wheelchair Transfer Assistance None Accompanied by Patient Identification Verified (Name & Yes Yes ) Patient Requires Transmission-Based No Precautions Safety Precautions Fall Prevention Height and Weight Body Mass Index (BMI) 22.4 22.4 BMI Classification Normal Normal Vital Signs Temperature (97.8 F-99.1 F) 97 F L 96.9 F L Temperature Source Temporal Temporal Pulse Rate (60-100) 72 75 Pulse Location Monitor Monitor Respiratory Rate (12-18) 22 H 18 Respiratory rate source Observation Observation Pulse Oximetry 93 Oxygen Delivery Method Nasal Cannula O2 L/MIN (L/min) 4 Blood Pressure (90/60-120/80) 104/49 L 98/65 Blood Pressure Mean (mm Hg) 67 76 Source Monitor Monitor Position Sitting Semi-Fowlers Blood Pressure Location Right Arm Left Arm History Since Last Visit- (Skip if this is Patient's initial visit) Have you changed medications since your No last visit? Any new allergies or adverse reactions No Had a fall/change in ADL's that may No increase risk of falls Signs or symptoms of abuse and/or No neglect since last visit Have you been in the hospital since your No last visit? Has dressing in place as prescribed Yes Yes Has compression in place as prescribed Yes No Has offloadiing in place as prescribed Yes N/A Experienced any changes in pain level or Yes No management Left Footwear Regular Shoe Right Footwear Regular Shoe Pain Scale: 0-10 Numeric Is Patient Pain Free? Yes Yes WC - Nurse 1 - General Ulcer Measurement Start: 07/06/24 14:11 Freq: Status: Active Protocol: Activity Type Activity Date Activity User E-sign Co-sign Detail Recorded Client Recorded Date Recorded By Document 07/06/24 14:11 MT [id number] 07/06/24 14:21 MT Document 07/13/24 14:06 RB [id number] 07/13/24 14:09 RB 07/06/24 07/13/24 14:11 14:06 Wound Center Nurse 1 #2 L LAT HEEL -Current Size (cm) - Length 2 -Current Size (cm) - Width 0.7 -Current Size (cm) - Depth 0.1 -Total Square Cm 1.4 -Photo Taken No -Tunneling No -Undermining/Tunneling No -Circular Undermining No -Exudate Amt None Present -Wound Margin Flat & Intact -Granulation Amt Large (67-100%) -Granulation Quality Pale,[place] -Texture (Bell-wound Skin Appearance) Assessed -Moisture (Bell-wound Skin Appearance) Assessed -Color (Bell-wound Skin Appearance) Assessed -Temperature (Bell-wound Skin No Abnormality Appearance) (Pt Warm) -Tenderness on Palpation (Bell-wound No Skin Appearance) -Ulcer Cleansing Soap and Water -Foul Odor after Cleansing No -Anesthetic Used 5% Lidocaine Gel #1- L MEDIAL ANKLE -Combined with other wound No -Current Size (cm) - Length 1.1 1 -Current Size (cm) - Width 1.0 1.1 -Current Size (cm) - Depth 0.2 0.2 -Total Square Cm 1.10 1.1 -Photo Taken No Yes -Tunneling No No -Undermining/Tunneling No No -Circular Undermining No No -Exudate Amt Small Medium -Exudate Type Serosanguineous Serosanguineous -Wound Margin Thickened & Thickened & Rolled Under Rolled Under -Granulation Amt Small (1-33%) Medium (34-66%) -Granulation Quality Pale,[place]illed[place] -Slough/Fibrin Yes -Necrosis Amt Large (67-100%) Small (1-33%) -Necrotic Tissue Type Adherent Slough Adherent Slough -Structure Exposed N/A -Texture (Bell-wound Skin Appearance) Assessed Assessed -Moisture (Bell-wound Skin Appearance) Assessed, Assessed Maceration -Color (Bell-wound Skin Appearance) Assessed Erythema -Temperature (Bell-wound Skin No Abnormality No Abnormality Appearance) (Pt Warm) (Pt Warm) -Tenderness on Palpation (Bell-wound No No Skin Appearance) -Ulcer Cleansing Soap and Water Wound Cleanser -Foul Odor after Cleansing No No -Anesthetic Used 5% Lidocaine 5% Lidocaine Gel Gel Lower Limb Edema Present Yes Left Calf (cm) 28 32 Left Ankle (cm) 25 24.5 WC - Nurse 2 - General Ulcer CM Notes Start: 07/06/24 14:11 Freq: Status: Active Protocol: Activity Type Activity Date Activity User E-sign Co-sign Detail Recorded Client Recorded Date Recorded By Document 07/06/24 14:32 SONNY [id number] 07/06/24 14:39 Document 07/13/24 14:14 JF [id number] 07/13/24 14:25 JF 07/06/24 07/13/24 14:32 14:14 Wound Center Nurse 2 #2 L LAT HEEL -Correct Patient Yes -Correct Side, Site, Position No -Correct Procedure No -Procedure Performed No -Post Debridement (cm) - Length 0 -Post Debridement (cm) - Width 0 -Post Debridement (cm) - Depth 0 -Total Square (Post) (cm) 0 -Area of Debridement (cm) - Length 0 -Area of Debridement (cm) - Width 0 -Total Square (Area) (cm) 0 -Wound/Ulcer Outcome Healed- Epithelialized 3-left foot -Time 14:17 -Correct Patient Yes -Correct Side, Site, Position Yes -Correct Procedure Yes -Procedure Performed Yes -Type of Procedure Debridement -Clinical Debridement Subcutaneous -Tissue Removed Subcutaneous -Post Debridement (cm) - Length 0.8 -Post Debridement (cm) - Width 1.9 -Post Debridement (cm) - Depth 0.1 -Total Square (Post) (cm) 1.52 -Area of Debridement (cm) - Length 0.8 -Area of Debridement (cm) - Width 1.9 -Total Square (Area) (cm) 1.52 -Tunneling No -Undermining/Tunneling No -Circular Undermining No -Wound/Ulcer Outcome Not Healed -Ulcer Cleansing Rinsed/ Irrigated with Saline -Foul Odor after Cleansing No -Bioengineered Tissue No -Bleeding Controlled with Pressure -Treatment Response Procedure Tolerated Well -Offloading Yes -Type of Offloading Surgical Shoe -Debridement - Subq, 1st 20sq cm Yes #1- L MEDIAL ANKLE -Time 14:35 14:14 -Correct Patient Yes Yes -Correct Side, Site, Position Yes Yes -Correct Procedure Yes Yes -Procedure Performed Yes Yes -Type of Procedure Debridement Debridement -Clinical Debridement Muscle / Fascia Muscle / Fascia -Tissue Removed Muscle Muscle -Post Debridement (cm) - Length 1.1 1.1 -Post Debridement (cm) - Width 1.0 1.2 -Post Debridement (cm) - Depth 0.2 0.2 -Total Square (Post) (cm) 1.10 1.32 -Area of Debridement (cm) - Length 1.1 1.1 -Area of Debridement (cm) - Width 1.0 1.2 -Total Square (Area) (cm) 1.10 1.32 -Tunneling No No -Undermining/Tunneling No No -Circular Undermining No No -Wound/Ulcer Outcome Not Healed Not Healed -Ulcer Cleansing Rinsed/ Rinsed/ Irrigated with Irrigated with Saline Saline -Foul Odor after Cleansing No No -Bioengineered Tissue Yes Yes -Type of Bioengineered Tissue Epicord Epifix 18mm Disc -Expiration Date 10/31/28 01/30/29 -Product Lot Number [id number] -Percent Used 100 505 -Lot number of Saline Used [id number] -Bleeding Controlled with Pressure Pressure -Treatment Response Procedure Procedure Tolerated Well Tolerated Well -Offloading No Yes -Type of Offloading Surgical Shoe -Debridement - Subq, 1st 20sq cm No -Debridement - Muscle / Fascia, 1st No No 20sq cm -Apply Skin Sub - 1st 25 sq cm - Legs 1 -Apply Skin Sub - 1st 25 sq cm - Feet 1 -Epicord Application 1-4 (per sq cm) 6 -Epifix 18mm Disc Application 1-4 3 Pain Scale: 0-10 Numeric Is Patient Pain Free? Yes Yes - Nurse 3 - General Ulcer D/C NN Start: 07/06/24 14:11 Freq: Status: Active Protocol: Activity Type Activity Date Activity User E-sign Co-sign Detail Recorded Client Recorded Date Recorded By Document 07/06/24 14:48 KW [id number] 07/06/24 14:48 KW Document 07/13/24 14:34 ML [id number] 07/13/24 14:36 ML 07/06/24 07/13/24 14:48 14:34 Wound Care Center Nurse 3 3-left foot -Primary Dressing Applied Silicone Border Foam 4x4 -Primary Dressing Covered/Secured with Dry Gauze -Silicone Border Foam 4x4 1 #1- L MEDIAL ANKLE -Primary Dressing Applied Silicone Border Silicone Border Foam 4x4, Foam 6x6 Silicone Border Foam 6x6 -Silicone Border Foam 4x4 1 -Silicone Border Foam 6x6 1 1 LLE -Tubular Bandage Single Layer Single Layer -Size of Tubigrip Used Size F Size F -Size F ($) 1 1 Pain Scale: 0-10 Numeric Is Patient Pain Free? 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 All findings were discussed with the patient. All questions were answered to the patient's satisfaction. Excisional debridement down to including subcutaneous tissue, fascia and muscle to the left lower extremity full-thickness wound with a number 3 mm dermal curette and #15 blade without incident. Predebridement measurement was 1.0 x 1.0 x 0.1 cm. Postdebridement measurement is 1.1 x 1.2 x 0.2 cm. EpiFix 18 mm disc was applied to the left full-thickness ulceration with 100% use. Fourth application. The graft site was free and clear of any infection. The wound/skin graft substitute was dressed with nonadherent bandage secured in place with Steri-Strips followed by bolster dressing as well as a double layer Tubigrip. Excision debridement down to and including subcutaneous tissue to the sanguinous crust to the dorsal aspect of the first metatarsophalangeal joint of the left foot done without incident with a sterile pickup and 15 blade. Predebridement measurement was sanguinous crust. Postdebridement measurement was 0.8 x 1.9 x 0.1 cm. Educated the patient did not elevate his legs while in bed as it is causing decreased blood flow to the by the lower extremity. He will just have his legs propped up on his bed as he normal. We will try this for approximately 1 week to see if the patient's swelling improves. He will continue to wear the compression wrap as educated. Culture was taken of the new full-thickness wound of the first metatarsophalangeal joint of the left foot. No antibiotics will be described at this time. Will add antibiotics to treatment as needed. The patient will follow-up with Dr. Mazariegos in 1 weeks. (2) Other specified peripheral vascular diseases: CODE(S): I73.89 - Other specified peripheral vascular diseases (3) Non-pressure chronic ulcer of other part of left foot with fat layer exposed: CODE(S): L97.522 - Non-pressure chronic ulcer of other part of left foot with fat layer exposed
[2024-07-20 13:47] VITALS: BP 117/59; PULSE 66; RESP 18; TEMP 36.5; BMI 22.4
--- NOTE | 2024-07-20 14:27 | PN.PCM_ITS ---
History of Present Illness Date of Service: 07/20/24 Chief Complaint: Left medial ankle ulcer History of Wound: Patient is a very pleasant 83 year old male with a left medial ankle ulcer that he has been seeing photographer apprentice, Dr. Drew. Patient has a significant history for COPD that he sees Palliative care to help manage. He is on home O2. He also has a history of Prostate CA, Squamous carcinoma of left lung, HTN, anxiety and depression, AAA without rupture, CAD, coronary artery stent placement (multiple), CABG x 3, former smoker, PAD, PBH, and pulmonary embolism- on anticoagulants, and hyperlipidemia. He has had arterial studies in the past and had some vascular procedures (by Dr. Freeman) to his left leg. He denies hx of diabetes. His providers are all with [facility]. He has had this left medial ankle ulcer for 3 months. He has been placing Santyl covered with [place] [facility]. There has not been much improvement to this area. He states that he was referred to see us by [facility] and that Dr. Drew also suggested he get a second opinion. He is on a new medication that his states is an antibiotic but they are unsure of the name. He denies fever, chills, nausea or vomiting. He comes in today for further evaluation and treatment. Progress of Wound: Stable full-thickness wound medial left ankle and left first metatarsophalangeal joint. Subjective Subjective Mr Corley is a 84-year-old male presenting to wound care center today for follow-up evaluation of left ankle and left foot full-thickness wound. Patient has left the dressing clean dry and intact. Today is his birthday. Patient states that he has some discomfort to the big toe joint with a full-thickness wound is. He states the redness has improved. He denies any new onset of trauma. Denies constitutional symptoms. No other pedal complaints at this time. Objective Data Objective Data Vital Signs: Vital Signs Temp Pulse Resp BP Pulse Ox O2 Del Method O2 Flow Rate 97.7 F L 66 18 117/59 L 93 Nasal Cannula 4 07/20/24 13:47 07/20/24 13:47 07/20/24 13:47 07/20/24 13:47 07/06/24 14:11 07/06/24 14:11 07/06/24 14:11 Oxygen Flow Rate (L/min) 4 Oxygen Delivery Method Nasal Cannula Weight: 74.843 kg Body Mass Index (BMI) 22.4 Lab / Micro Data Micro: Microbiology 07/13/24 14:15 Ulcer, Decubitus - Left Foot Gram Stain - Final 07/13/24 14:15 Ulcer, Decubitus - Left Foot Wound Culture - Final Staphylococcus capitis 07/13/24 14:15 Ulcer, Decubitus - Left Foot Anaerobic Culture - Final No growth in 5 days. Physical Exam Narrative Vascular: DP and PT pulses are faintly palpable. CFT is brisk. Blanchable erythema appreciated to the medial ankle and first metatarsophalangeal joint to the left foot, improving skin temp great is warm to cool from proximal ankles to distal digits left lower extremity. Neurological: Light touch intact. Patient does despond painful stimuli. Dermatological: Full-thickness wound to the dorsal aspect left foot first metatarsal phalangeal joint measuring 0.6 x 1.7 x 0.1 cm. Wound base is granular with negative probe to bone. Full-thickness wound to the medial ankle of the left lower extremity measuring 1.0 x 1.1 x 0.3 cm. Probe to deltoid ligament. Blanchable erythema to the periwound is noticeable as well as improving. Excisional debridement down to including subcutaneous tissue, fascia and muscle to the left lower extremity full-thickness wound with a number 3 mm dermal curette and #15 blade without incident. Predebridement measurement was 0.9 x 1.0 x 0.2 cm. Postdebridement measurement is 1.0 x 1.1 x 0.3 cm. EpiCord 2.0 x 3.0 cm disc was applied to the left full-thickness ulceration with 100% use. Fifth application. The graft site was free and clear of any infection. The wound/skin graft substitute was dressed with nonadherent bandage secured in place with Steri-Strips followed by bolster dressing as well as a double layer Tubigrip. Excisional debridement down to and including subcutaneous tissue to the sanguinous crust to the dorsal aspect of the first metatarsophalangeal joint of the left foot done without incident with a sterile pickup and 15 blade. Predebridement measurement was 0.5 x 1.5 x 0.1 cm. Postdebridement measurement was 0.6 x 1.7 x 0.1 cm. Musculoskeletal: Muscle strength 5 and 5 in all quadrants bilateral. Mild pain to palpation to full-thickness wound to the left lower extremity medial ankle. No pain with calf pressure. Debridement Note Debridement Note Debridement Free Text: Excisional debridement down to including subcutaneous tissue, fascia and muscle to the left lower extremity full-thickness wound with a number 3 mm dermal curette and #15 blade without incident. Predebridement measurement was 0.9 x 1.0 x 0.2 cm. Postdebridement measurement is 1.0 x 1.1 x 0.3 cm. EpiCord 2.0 x 3.0 cm disc was applied to the left full-thickness ulceration with 100% use. Fifth application. The graft site was free and clear of any infection. The wound/skin graft substitute was dressed with nonadherent bandage secured in place with Steri-Strips followed by bolster dressing as well as a double layer Tubigrip. Excisional debridement down to and including subcutaneous tissue to the sanguinous crust to the dorsal aspect of the first metatarsophalangeal joint of the left foot done without incident with a sterile pickup and 15 blade. Predebridement measurement was 0.5 x 1.5 x 0.1 cm. Postdebridement measurement was 0.6 x 1.7 x 0.1 cm. Post-Debridement Measurements and Additional Note: Post-Debridement Measurements/Treatment - Nurse 1 - General Ulcer Assessment Start: 07/06/24 14:11 Freq: Status: Active Protocol: [email or web address].LOWEXT Activity Type Activity Date Activity User E-sign Co-sign Detail Recorded Client Recorded Date Recorded By Document 07/06/24 14:11 NE [id number] 07/06/24 14:21 NE Document 07/13/24 14:06 RB [id number] 07/13/24 14:09 RB Document 07/20/24 13:47 DL [id number] 07/20/24 13:58 DL 07/06/24 07/13/24 07/20/24 14:11 14:06 13:47 - Today's Visit Information Type of service Follow-up Visit Follow-up Visit Follow-up Visit (Physician/ELECTRIC METER SETTER (Physician/ELECTRIC METER SETTER (Physician/ELECTRIC METER SETTER ) ) ) Arrival Mode Ambulatory Wheelchair Wheelchair Transfer Assistance None None Accompanied by Patient Identification Verified (Name & Yes Yes Yes ) Patient Requires Transmission-Based No No Precautions Safety Precautions Fall Prevention Height and Weight Body Mass Index (BMI) 22.4 22.4 22.4 BMI Classification Normal Normal Normal Vital Signs Temperature (97.8 F-99.1 F) 97 F L 96.9 F L 97.7 F L Temperature Source Temporal Temporal Temporal Pulse Rate (60-100) 72 75 66 Pulse Location Monitor Monitor Monitor Respiratory Rate (12-18) 22 H 18 18 Respiratory rate source Observation Observation Observation Pulse Oximetry 93 Oxygen Delivery Method Nasal Cannula O2 L/MIN (L/min) 4 Blood Pressure (90/60-120/80) 104/49 L 98/65 117/59 L Blood Pressure Mean (mm Hg) 67 76 78 Source Monitor Monitor Monitor Position Sitting Semi-Fowlers Blood Pressure Location Right Arm Left Arm History Since Last Visit- (Skip if this is Patient's initial visit) Have you changed medications since your No No last visit? Any new allergies or adverse reactions No No Had a fall/change in ADL's that may No No increase risk of falls Signs or symptoms of abuse and/or No No neglect since last visit Have you been in the hospital since your No No last visit? Has dressing in place as prescribed Yes Yes Yes Has compression in place as prescribed Yes No Yes Has offloadiing in place as prescribed Yes N/A N/A Experienced any changes in pain level or Yes No No management Left Footwear Regular Shoe Right Footwear Regular Shoe Pain Scale: 0-10 Numeric Is Patient Pain Free? Yes Yes Yes WC - Nurse 1 - General Ulcer Measurement Start: 07/06/24 14:11 Freq: Status: Active Protocol: Activity Type Activity Date Activity User E-sign Co-sign Detail Recorded Client Recorded Date Recorded By Document 07/06/24 14:11 MT [id number] 07/06/24 14:21 MT Document 07/13/24 14:06 RB [id number] 07/13/24 14:09 RB Document 07/20/24 13:47 DL [id number] 07/20/24 13:58 DL 07/06/24 07/13/24 07/20/24 14:11 14:06 13:47 Wound Center Nurse 1 #2 L LAT HEEL -Current Size (cm) - Length 2 -Current Size (cm) - Width 0.7 -Current Size (cm) - Depth 0.1 -Total Square Cm 1.4 -Photo Taken No -Tunneling No -Undermining/Tunneling No -Circular Undermining No -Exudate Amt None Present -Wound Margin Flat & Intact -Granulation Amt Large (67-100%) -Granulation Quality Pale,[place] -Texture (Bell-wound Skin Appearance) Assessed -Moisture (Bell-wound Skin Appearance) Assessed -Color (Bell-wound Skin Appearance) Assessed -Temperature (Bell-wound Skin No Abnormality Appearance) (Pt Warm) -Tenderness on Palpation (Bell-wound No Skin Appearance) -Ulcer Cleansing Soap and Water -Foul Odor after Cleansing No -Anesthetic Used 5% Lidocaine Gel 3-left foot -Current Size (cm) - Length 0.6 -Current Size (cm) - Width 1.6 -Current Size (cm) - Depth 0.1 -Total Square Cm 0.96 -Exudate Amt Medium -Exudate Type Serosanguineous -Wound Margin Distinct, Outline Attached -Granulation Amt Small (1-33%) -Granulation Quality [place] -Necrosis Amt Large (67-100%) -Necrotic Tissue Type Adherent Slough -Structure Exposed N/A -Texture (Bell-wound Skin Appearance) Scarring -Moisture (Bell-wound Skin Appearance) No Abnormality -Color (Bell-wound Skin Appearance) No Abnormality -Temperature (Bell-wound Skin No Abnormality Appearance) (Pt Warm) -Ulcer Cleansing Rinsed/ Irrigated with Saline -Foul Odor after Cleansing No -Anesthetic Used 5% Lidocaine Gel #1- L MEDIAL ANKLE -Combined with other wound No -Current Size (cm) - Length 1.1 1 1 -Current Size (cm) - Width 1.0 1.1 1 -Current Size (cm) - Depth 0.2 0.2 0.3 -Total Square Cm 1.10 1.1 1 -Photo Taken No Yes -Tunneling No No -Undermining/Tunneling No No -Undermining/Tunneling Starts (O'clock 7 ) -Undermining/Tunneling Ends (O'clock) 11 -Maximum Distance (cm) 0.2 -Circular Undermining No No -Exudate Amt Small Medium Medium -Exudate Type Serosanguineous Serosanguineous Serosanguineous -Wound Margin Thickened & Thickened & Distinct, Rolled Under Rolled Under Outline Attached -Granulation Amt Small (1-33%) Medium (34-66%) None Present (0 %) -Granulation Quality Pale,[place] -Slough/Fibrin Yes -Necrosis Amt Large (67-100%) Small (1-33%) Large (67-100%) -Necrotic Tissue Type Adherent Slough Adherent Slough Adherent Slough -Structure Exposed N/A N/A -Texture (Bell-wound Skin Appearance) Assessed Assessed Scarring -Moisture (Bell-wound Skin Appearance) Assessed, Assessed No Abnormality Maceration -Color (Bell-wound Skin Appearance) Assessed Erythema No Abnormality -Temperature (Bell-wound Skin No Abnormality No Abnormality No Abnormality Appearance) (Pt Warm) (Pt Warm) (Pt Warm) -Tenderness on Palpation (Bell-wound No No Skin Appearance) -Ulcer Cleansing Soap and Water Wound Cleanser Rinsed/ Irrigated with Saline -Foul Odor after Cleansing No No No -Anesthetic Used 5% Lidocaine 5% Lidocaine 5% Lidocaine Gel Gel Gel Lower Limb Edema Present Yes Left Calf (cm) 28 32 29.8 Left Ankle (cm) 25 24.5 24.5 WC - Nurse 2 - General Ulcer CM Notes Start: 07/06/24 14:11 Freq: Status: Active Protocol: Activity Type Activity Date Activity User E-sign Co-sign Detail Recorded Client Recorded Date Recorded By Document 07/06/24 14:32 [id number] 07/06/24 14:39 Document 07/13/24 14:14 [id number] 07/13/24 14:25 Edit Result 07/13/24 14:14 JF (1) 000 07/19/24 11:58 Document 07/20/24 14:07 [id number] 07/20/24 14:11 (1) #1- L MEDIAL ANKLE - Apply Skin Sub - 1st 25 sq cm - Legs => 1 - Apply Skin Sub - 1st 25 sq cm - Feet 1 => 07/06/24 07/13/24 07/20/24 14:32 14:14 14:07 Wound Center Nurse 2 #2 L LAT HEEL -Correct Patient Yes -Correct Side, Site, Position No -Correct Procedure No -Procedure Performed No -Post Debridement (cm) - Length 0 -Post Debridement (cm) - Width 0 -Post Debridement (cm) - Depth 0 -Total Square (Post) (cm) 0 -Area of Debridement (cm) - Length 0 -Area of Debridement (cm) - Width 0 -Total Square (Area) (cm) 0 -Wound/Ulcer Outcome Healed- Epithelialized 3-left foot -Time 14:17 14:07 -Correct Patient Yes Yes -Correct Side, Site, Position Yes Yes -Correct Procedure Yes Yes -Procedure Performed Yes Yes -Type of Procedure Debridement Debridement -Clinical Debridement Subcutaneous Subcutaneous -Tissue Removed Subcutaneous Subcutaneous -Post Debridement (cm) - Length 0.8 0.6 -Post Debridement (cm) - Width 1.9 1.7 -Post Debridement (cm) - Depth 0.1 0.1 -Total Square (Post) (cm) 1.52 1.02 -Area of Debridement (cm) - Length 0.8 0.6 -Area of Debridement (cm) - Width 1.9 1.7 -Total Square (Area) (cm) 1.52 1.02 -Tunneling No No -Undermining/Tunneling No No -Circular Undermining No No -Wound/Ulcer Outcome Not Healed Not Healed -Ulcer Cleansing Rinsed/ Rinsed/ Irrigated with Irrigated with Saline Saline -Foul Odor after Cleansing No No -Bioengineered Tissue No -Bleeding Controlled with Pressure Pressure -Treatment Response Procedure Procedure Tolerated Well Tolerated Well -Offloading Yes Yes -Type of Offloading Surgical Shoe Surgical Shoe -Debridement - Subq, 1st 20sq cm Yes Yes #1- L MEDIAL ANKLE -Time 14:35 14:14 14:09 -Correct Patient Yes Yes Yes -Correct Side, Site, Position Yes Yes Yes -Correct Procedure Yes Yes Yes -Procedure Performed Yes Yes Yes -Type of Procedure Debridement Debridement Debridement -Clinical Debridement Muscle / Fascia Muscle / Fascia Muscle / Fascia -Tissue Removed Muscle Muscle Tendon -Post Debridement (cm) - Length 1.1 1.1 1.0 -Post Debridement (cm) - Width 1.0 1.2 1.1 -Post Debridement (cm) - Depth 0.2 0.2 0.3 -Total Square (Post) (cm) 1.10 1.32 1.10 -Area of Debridement (cm) - Length 1.1 1.1 1.0 -Area of Debridement (cm) - Width 1.0 1.2 1.1 -Total Square (Area) (cm) 1.10 1.32 1.10 -Tunneling No No No -Undermining/Tunneling No No No -Circular Undermining No No No -Wound/Ulcer Outcome Not Healed Not Healed Not Healed -Ulcer Cleansing Rinsed/ Rinsed/ Rinsed/ Irrigated with Irrigated with Irrigated with Saline Saline Saline -Foul Odor after Cleansing No No No -Bioengineered Tissue Yes Yes Yes -Type of Bioengineered Tissue Epicord Epifix 18mm Epicord Disc -Expiration Date 10/31/28 01/30/29 10/31/28 -Product Lot Number [id number] -Percent Used 100 [id number] 100 -Lot number of Saline Used [id number] -Bleeding Controlled with Pressure Pressure Pressure -Treatment Response Procedure Procedure Procedure Tolerated Well Tolerated Well Tolerated Well -Offloading No Yes No -Type of Offloading Surgical Shoe -Debridement - Subq, 1st 20sq cm No No -Debridement - Muscle / Fascia, 1st No No No 20sq cm -Apply Skin Sub - 1st 25 sq cm - Legs 1 1 1 -Epicord Application 1-4 (per sq cm) 6 6 -Epifix 18mm Disc Application 1-4 3 Pain Scale: 0-10 Numeric Is Patient Pain Free? Yes Yes Yes WC - Nurse 3 - General Ulcer D/C NN Start: 07/06/24 14:11 Freq: Status: Active Protocol: Activity Type Activity Date Activity User E-sign Co-sign Detail Recorded Client Recorded Date Recorded By Document 07/06/24 14:48 KW [id number] 07/06/24 14:48 KW Document 07/13/24 14:34 ML [id number] 07/13/24 14:36 ML Document 07/20/24 14:20 KW [id number] 07/20/24 14:20 KW 07/06/24 07/13/24 07/20/24 14:48 14:34 14:20 Wound Care Center Nurse 3 3-left foot -Primary Dressing Applied Silicone Border Silicone Border Foam 4x4 Foam 4x4 -Primary Dressing Covered/Secured with Dry Gauze -Silicone Border Foam 4x4 1 1 #1- L MEDIAL ANKLE -Primary Dressing Applied Silicone Border Silicone Border Silicone Border Foam 4x4, Foam 6x6 Foam 4x4 Silicone Border Foam 6x6 -Silicone Border Foam 4x4 1 1 -Silicone Border Foam 6x6 1 1 LLE -Tubular Bandage Single Layer Single Layer Single Layer -Size of Tubigrip Used Size F Size F Size F -Size F ($) 1 1 1 Pain Scale: 0-10 Numeric Is Patient Pain Free? Yes Yes Yes Pain Scale: Adult NonVerbal Is Patient Pain Free? 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 All findings were discussed with the patient. All questions were answered to the patient's satisfaction. Excisional debridement down to including subcutaneous tissue, fascia and muscle to the left lower extremity full-thickness wound with a number 3 mm dermal curette and #15 blade without incident. Predebridement measurement was 0.9 x 1.0 x 0.2 cm. Postdebridement measurement is 1.0 x 1.1 x 0.3 cm. EpiCord 2.0 x 3.0 cm disc was applied to the left full-thickness ulceration with 100% use. Fifth application. The graft site was free and clear of any infection. The wound/skin graft substitute was dressed with nonadherent bandage secured in place with Steri-Strips followed by bolster dressing as well as a do uble layer Tubigrip. Excisional debridement down to and including subcutaneous tissue to the sanguinous crust to the dorsal aspect of the first metatarsophalangeal joint of the left foot done without incident with a sterile pickup and 15 blade. Predebridement measurement was 0.5 x 1.5 x 0.1 cm. Postdebridement measurement was 0.6 x 1.7 x 0.1 cm. Educated the patient to keep his dressing clean dry and intact. Review of the patient's microbiology results show evidence of bacterial growth but at this time there is no concern for soft tissue infection even though bacterial had grown. Will hold off on oral antibiotics at this time. If the patient shows up in 1 week and there is increase in erythema we will move forward with oral antibiotic coverage which the patient was understanding of. Samples of dietary supplements Joon, Ensure were dispensed to the patient and educated the patient and his where to purchase these products. Expressed recommendation for dietary supplementation to help improve wound healing. The patient will follow-up with Dr. Mazariegos in 1 week. (2) Other specified peripheral vascular diseases: CODE(S): I73.89 - Other specified peripheral vascular diseases (3) Non-pressure chronic ulcer of other part of left foot with fat layer exposed: CODE(S): L97.522 - Non-pressure chronic ulcer of other part of left foot with fat layer exposed
[2024-07-27 10:58] VITALS: BP 122/60; PULSE 91; RESP 16; TEMP 36.2; BMI 22.4
--- NOTE | 2024-07-27 18:49 | PCM.WC.PN ---
History of Present Illness Date of Service: 07/27/24 Chief Complaint: Left medial ankle ulcer History of Wound: Patient is a very pleasant 83 year old male with a left medial ankle ulcer that he has been seeing oncology consultant, Dr. Drew. Patient has a significant history for COPD that he sees Palliative care to help manage. He is on home O2. He also has a history of Prostate CA, Squamous carcinoma of left lung, HTN, anxiety and depression, AAA without rupture, CAD, coronary artery stent placement (multiple), CABG x 3, former smoker, PAD, PBH, and pulmonary embolism- on anticoagulants, and hyperlipidemia. He has had arterial studies in the past and had some vascular procedures (by Dr. Freeman) to his left leg. He denies hx of diabetes. His providers are all with [facility]. He has had this left medial ankle ulcer for 3 months. He has been placing Santyl covered with Jackson SAP. There has not been much improvement to this area. He states that he was referred to see us by [facility] and that Dr. Drew also suggested he get a second opinion. He is on a new medication that his states is an antibiotic but they are unsure of the name. He denies fever, chills, nausea or vomiting. He comes in today for further evaluation and treatment. Progress of Wound: Stable full-thickness wound medial left ankle and left first metatarsophalangeal joint. Subjective Subjective Mr Corley is a 84-year-old male presenting to wound care center today for follow-up evaluation of left ankle and left foot full-thickness wound. Patient has left his dressing clean dry and intact. He denies any pain in the left extremity. Denies trauma. Denies constitutional symptoms. No other pedal complaints at this time. Objective Data Objective Data Vital Signs: Vital Signs Temp Pulse Resp BP Pulse Ox O2 Del Method O2 Flow Rate 97.1 F L 91 16 122/60 H 93 Room Air 4 07/27/24 10:58 07/27/24 10:58 07/27/24 10:58 07/27/24 10:58 07/06/24 14:11 07/27/24 10:58 07/06/24 14:11 Oxygen Flow Rate (L/min) 4 Oxygen Delivery Method Room Air Weight: 74.843 kg Body Mass Index (BMI) 22.4 Lab / Micro Data Micro: Microbiology 07/13/24 14:15 Ulcer, Decubitus - Left Foot Gram Stain - Final 07/13/24 14:15 Ulcer, Decubitus - Left Foot Wound Culture - Final Staphylococcus capitis 07/13/24 14:15 Ulcer, Decubitus - Left Foot Anaerobic Culture - Final No growth in 5 days. Physical Exam Narrative Vascular: DP and PT pulses are faintly palpable. CFT is brisk. Blanchable erythema appreciated to the medial ankle and first metatarsophalangeal joint to the left foot, improving skin temp great is warm to cool from proximal ankles to distal digits left lower extremity. Neurological: Light touch intact. Patient does despond painful stimuli. Dermatological: Full-thickness wound to the dorsal aspect left foot first metatarsal phalangeal joint measuring 0.6 x 1.9 x 0.1 cm. Wound base is granular.. Full-thickness wound to the medial ankle of the left lower extremity measuring 0.9 x 1.1 x 0.3 cm. Probe to deltoid ligament. Blanchable erythema to the periwound is noticeable as well as improving. Excisional debridement down to including subcutaneous tissue, fascia and muscle to the left lower extremity full-thickness wound with a number 3 mm dermal curette and #15 blade without incident. Predebridement measurement was 0.8 x 1.0 x 0.2 cm. Postdebridement measurement is 0.9 x 1.1 x 0.3 cm. Epifix 18 mm disc was applied to the left full-thickness ulceration with 100% use. Sixth application. The graft site was free and clear of any infection. The wound/skin graft substitute was dressed with nonadherent bandage secured in place with Steri-Strips followed by bolster dressing as well as a double layer Tubigrip. Excisional debridement down to and including subcutaneous tissue to the sanguinous crust to the dorsal aspect of the first metatarsophalangeal joint of the left foot done without incident with a sterile pickup and 15 blade. Predebridement measurement was 0.7 x 1.0 x 0.1 cm. Postdebridement measurement was 0.9 x 1.1 x 0.3 cm. Musculoskeletal: Mild pain to palpation to full-thickness wound to the left lower extremity medial ankle. No pain with calf pressure. Debridement Note Debridement Note Debridement Free Text: Excisional debridement down to including subcutaneous tissue, fascia and muscle to the left lower extremity full-thickness wound with a number 3 mm dermal curette and #15 blade without incident. Predebridement measurement was 0.8 x 1.0 x 0.2 cm. Postdebridement measurement is 0.9 x 1.1 x 0.3 cm. Epifix 18 mm disc was applied to the left full-thickness ulceration with 100% use. Sixth application. The graft site was free and clear of any infection. The wound/skin graft substitute was dressed with nonadherent bandage secured in place with Steri-Strips followed by bolster dressing as well as a double layer Tubigrip. Excisional debridement down to and including subcutaneous tissue to the sanguinous crust to the dorsal aspect of the first metatarsophalangeal joint of the left foot done without incident with a sterile pickup and 15 blade. Predebridement measurement was 0.7 x 1.0 x 0.1 cm. Postdebridement measurement was 0.9 x 1.1 x 0.3 cm. Post-Debridement Measurements and Additional Note: Post-Debridement Measurements/Treatment - Nurse 1 - General Ulcer Assessment Start: 07/06/24 14:11 Freq: Status: Active Protocol: FABIAN.SHANTI Activity Type Activity Date Activity User E-sign Co-sign Detail Recorded Client Recorded Date Recorded By Document 07/06/24 14:11 MT [id number] 07/06/24 14:21 MT Document 07/13/24 14:06 RB [id number] 07/13/24 14:09 RB Document 07/20/24 13:47 DL [id number] 07/20/24 13:58 DL Document 07/27/24 10:58 KW [id number] 07/27/24 11:05 KW 07/06/24 07/13/24 07/20/24 14:11 14:06 13:47 - Today's Visit Information Type of service Follow-up Visit Follow-up Visit Follow-up Visit (Physician/GLEASON GEAR GENERATOR (Physician/GLEASON GEAR GENERATOR (Physician/GLEASON GEAR GENERATOR ) ) ) Arrival Mode Ambulatory Wheelchair Wheelchair Transfer Assistance None None Accompanied by Patient Identification Verified (Name & Yes Yes Yes ) Patient Requires Transmission-Based No No Precautions Safety Precautions Fall Prevention Height and Weight Body Mass Index (BMI) 22.4 22.4 22.4 BMI Classification Normal Normal Normal Vital Signs Temperature (97.8 F-99.1 F) 97 F L 96.9 F L 97.7 F L Temperature Source Temporal Temporal Temporal Pulse Rate (60-100) 72 75 66 Pulse Location Monitor Monitor Monitor Respiratory Rate (12-18) 22 H 18 18 Respiratory rate source Observation Observation Observation Pulse Oximetry 93 Oxygen Delivery Method Nasal Cannula O2 L/MIN (L/min) 4 Blood Pressure (90/60-120/80) 104/49 L 98/65 117/59 L Blood Pressure Mean (mm Hg) 67 76 78 Source Monitor Monitor Monitor Position Sitting Semi-Fowlers Blood Pressure Location Right Arm Left Arm History Since Last Visit- (Skip if this is Patient's initial visit) Have you changed medications since your No No last visit? Any new allergies or adverse reactions No No Had a fall/change in ADL's that may No No increase risk of falls Signs or symptoms of abuse and/or No No neglect since last visit Have you been in the hospital since your No No last visit? Has dressing in place as prescribed Yes Yes Yes Has compression in place as prescribed Yes No Yes Has offloadiing in place as prescribed Yes N/A N/A Experienced any changes in pain level or Yes No No management Left Footwear Regular Shoe Right Footwear Regular Shoe Pain Scale: 0-10 Numeric Is Patient Pain Free? Yes Yes Yes 07/27/24 10:58 WC - Today's Visit Information Type of service Follow-up Visit (Physician/GLEASON GEAR GENERATOR ) Arrival Mode Wheelchair Transfer Assistance Accompanied by Patient Identification Verified (Name & Yes ) Patient Requires Transmission-Based Precautions Safety Precautions Height and Weight Body Mass Index (BMI) 22.4 BMI Classification Normal Vital Signs Temperature (97.8 F-99.1 F) 97.1 F L Temperature Source Temporal Pulse Rate (60-100) 91 Pulse Location Monitor Respiratory Rate (12-18) 16 Respiratory rate source Observation Pulse Oximetry Oxygen Delivery Method Room Air O2 L/MIN (L/min) Blood Pressure (90/60-120/80) 122/60 H Blood Pressure Mean (mm Hg) 80 Source Monitor Position Semi-Fowlers Blood Pressure Location Left Arm History Since Last Visit- (Skip if this is Patient's initial visit) Have you changed medications since your No last visit? Any new allergies or adverse reactions No Had a fall/change in ADL's that may No increase risk of falls Signs or symptoms of abuse and/or No neglect since last visit Have you been in the hospital since your No last visit? Has dressing in place as prescribed Yes Has compression in place as prescribed Yes Has offloadiing in place as prescribed N/A Experienced any changes in pain level or No management Left Footwear Regular Shoe Right Footwear Regular Shoe Pain Scale: 0-10 Numeric Is Patient Pain Free? Yes WC - Nurse 1 - General Ulcer Measurement Start: 07/06/24 14:11 Freq: Status: Active Protocol: Activity Type Activity Date Activity User E-sign Co-sign Detail Recorded Client Recorded Date Recorded By Document 07/06/24 14:11 MT [id number] 07/06/24 14:21 MT Document 07/13/24 14:06 RB [id number] 07/13/24 14:09 RB Document 07/20/24 13:47 DL [id number] 07/20/24 13:58 DL Document 07/27/24 10:58 KW [id number] 07/27/24 11:05 KW Edit Result 07/27/24 10:58 KW (1) [id number] 07/27/24 11:06 KW (1) 3-left foot - Color (Bell-wound Skin Appearance) Assessed => Assessed,Erythema #1- L MEDIAL ANKLE - Color (Bell-wound Skin Appearance) Assessed => Assessed,Erythema 07/06/24 07/13/24 07/20/24 14:11 14:06 13:47 Wound Center Nurse 1 #2 L LAT HEEL -Current Size (cm) - Length 2 -Current Size (cm) - Width 0.7 -Current Size (cm) - Depth 0.1 -Total Square Cm 1.4 -Photo Taken No -Tunneling No -Undermining/Tunneling No -Circular Undermining No -Exudate Amt None Present -Wound Margin Flat & Intact -Granulation Amt Large (67-100%) -Granulation Quality Pale,Gene Autry -Texture (Bell-wound Skin Appearance) Assessed -Moisture (Bell-wound Skin Appearance) Assessed -Color (Bell-wound Skin Appearance) Assessed -Temperature (Bell-wound Skin No Abnormality Appearance) (Pt Warm) -Tenderness on Palpation (Bell-wound No Skin Appearance) -Ulcer Cleansing Soap and Water -Foul Odor after Cleansing No -Anesthetic Used 5% Lidocaine Gel 3-left foot -Current Size (cm) - Length 0.6 -Current Size (cm) - Width 1.6 -Current Size (cm) - Depth 0.1 -Total Square Cm 0.96 -Date of Last Picture (Recall this field) -Exudate Amt Medium -Exudate Type Serosanguineous -Wound Margin Distinct, Outline Attached -Granulation Amt Small (1-33%) -Granulation Quality Gene Autry -Necrosis Amt Large (67-100%) -Necrotic Tissue Type Adherent Slough -Structure Exposed N/A -Texture (Bell-wound Skin Appearance) Scarring -Moisture (Bell-wound Skin Appearance) No Abnormality -Color (Bell-wound Skin Appearance) No Abnormality -Temperature (Bell-wound Skin No Abnormality Appearance) (Pt Warm) -Tenderness on Palpation (Bell-wound Skin Appearance) -Ulcer Cleansing Rinsed/ Irrigated with Saline -Foul Odor after Cleansing No -Anesthetic Used 5% Lidocaine Gel #1- L MEDIAL ANKLE -Combined with other wound No -Current Size (cm) - Length 1.1 1 1 -Current Size (cm) - Width 1.0 1.1 1 -Current Size (cm) - Depth 0.2 0.2 0.3 -Total Square Cm 1.10 1.1 1 -Photo Taken No Yes -Tunneling No No -Undermining/Tunneling No No -Undermining/Tunneling Starts (O'clock 7 ) -Undermining/Tunneling Ends (O'clock) 11 -Maximum Distance (cm) 0.2 -Circular Undermining No No -Exudate Amt Small Medium Medium -Exudate Type Serosanguineous Serosanguineous Serosanguineous -Wound Margin Thickened & Thickened & Distinct, Rolled Under Rolled Under Outline Attached -Granulation Amt Small (1-33%) Medium (34-66%) None Present (0 %) -Granulation Quality Pale,Gene Autry Gene Autry -Slough/Fibrin Yes -Necrosis Amt Large (67-100%) Small (1-33%) Large (67-100%) -Necrotic Tissue Type Adherent Slough Adherent Slough Adherent Slough -Structure Exposed N/A N/A -Texture (Bell-wound Skin Appearance) Assessed Assessed Scarring -Moisture (Bell-wound Skin Appearance) Assessed, Assessed No Abnormality Maceration -Color (Bell-wound Skin Appearance) Assessed Erythema No Abnormality -Temperature (Bell-wound Skin No Abnormality No Abnormality No Abnormality Appearance) (Pt Warm) (Pt Warm) (Pt Warm) -Tenderness on Palpation (Bell-wound No No Skin Appearance) -Ulcer Cleansing Soap and Water Wound Cleanser Rinsed/ Irrigated with Saline -Foul Odor after Cleansing No No No -Anesthetic Used 5% Lidocaine 5% Lidocaine 5% Lidocaine Gel Gel Gel Lower Limb Edema Present Yes Left Calf (cm) 28 32 29.8 Left Ankle (cm) 25 24.5 24.5 07/27/24 10:58 Wound Center Nurse 1 #2 L LAT HEEL -Current Size (cm) - Length -Current Size (cm) - Width -Current Size (cm) - Depth -Total Square Cm -Photo Taken -Tunneling -Undermining/Tunneling -Circular Undermining -Exudate Amt -Wound Margin -Granulation Amt -Granulation Quality -Texture (Bell-wound Skin Appearance) -Moisture (Bell-wound Skin Appearance) -Color (Bell-wound Skin Appearance) -Temperature (Bell-wound Skin Appearance) -Tenderness on Palpation (Bell-wound Skin Appearance) -Ulcer Cleansing -Foul Odor after Cleansing -Anesthetic Used 3-left foot -Current Size (cm) - Length 0.6 -Current Size (cm) - Width 1.8 -Current Size (cm) - Depth 0.1 -Total Square Cm 1.08 -Date of Last Picture (Recall this 07/27/24 field) -Exudate Amt Medium -Exudate Type Serosanguineous -Wound Margin Thickened -Granulation Amt Small (1-33%) -Granulation Quality Gene Autry -Necrosis Amt Large (67-100%) -Necrotic Tissue Type Adherent Slough -Structure Exposed -Texture (Bell-wound Skin Appearance) Assessed -Moisture (Bell-wound Skin Appearance) Assessed -Color (Bell-wound Skin Appearance) Assessed, Erythema -Temperature (Bell-wound Skin No Abnormality Appearance) (Pt Warm) -Tenderness on Palpation (Bell-wound No Skin Appearance) -Ulcer Cleansing Soap and Water -Foul Odor after Cleansing No -Anesthetic Used 5% Lidocaine Gel #1- L MEDIAL ANKLE -Combined with other wound -Current Size (cm) - Length 1 -Current Size (cm) - Width 1.1 -Current Size (cm) - Depth 0.2 -Total Square Cm 1.1 -Photo Taken -Tunneling -Undermining/Tunneling -Undermining/Tunneling Starts (O'clock ) -Undermining/Tunneling Ends (O'clock) -Maximum Distance (cm) -Circular Undermining Yes -Exudate Amt Medium -Exudate Type Serosanguineous -Wound Margin Thickened -Granulation Amt Small (1-33%) -Granulation Quality Gene Autry -Slough/Fibrin -Necrosis Amt Large (67-100%) -Necrotic Tissue Type Adherent Slough -Structure Exposed -Texture (Bell-wound Skin Appearance) Assessed -Moisture (Bell-wound Skin Appearance) Assessed -Color (Bell-wound Skin Appearance) Assessed, Erythema -Temperature (Bell-wound Skin No Abnormality Appearance) (Pt Warm) -Tenderness on Palpation (Bell-wound No Skin Appearance) -Ulcer Cleansing Soap and Water -Foul Odor after Cleansing No -Anesthetic Used 5% Lidocaine Gel Lower Limb Edema Present Left Calf (cm) Left Ankle (cm) WC - Nurse 2 - General Ulcer CM Notes Start: 07/06/24 14:11 Freq: Status: Active Protocol: Activity Type Activity Date Activity User E-sign Co-sign Detail Recorded Client Recorded Date Recorded By Document 07/06/24 14:32 [id number] 07/06/24 14:39 Document 07/13/24 14:14 [id number] 07/13/24 14:25 Edit Result 07/13/24 14:14 JF (1) 000 07/19/24 11:58 Document 07/20/24 14:07 JF [id number] 07/20/24 14:11 Document 07/27/24 11:23 [id number] 07/27/24 11:32 JF (1) #1- L MEDIAL ANKLE - Apply Skin Sub - 1st 25 sq cm - Legs => 1 - Apply Skin Sub - 1st 25 sq cm - Feet 1 => 07/06/24 07/13/24 07/20/24 14:32 14:14 14:07 Wound Center Nurse 2 #2 L LAT HEEL -Correct Patient Yes -Correct Side, Site, Position No -Correct Procedure No -Procedure Performed No -Post Debridement (cm) - Length 0 -Post Debridement (cm) - Width 0 -Post Debridement (cm) - Depth 0 -Total Square (Post) (cm) 0 -Area of Debridement (cm) - Length 0 -Area of Debridement (cm) - Width 0 -Total Square (Area) (cm) 0 -Wound/Ulcer Outcome Healed- Epithelialized 3-left foot -Time 14:17 14:07 -Correct Patient Yes Yes -Correct Side, Site, Position Yes Yes -Correct Procedure Yes Yes -Procedure Performed Yes Yes -Type of Procedure Debridement Debridement -Clinical Debridement Subcutaneous Subcutaneous -Tissue Removed Subcutaneous Subcutaneous -Post Debridement (cm) - Length 0.8 0.6 -Post Debridement (cm) - Width 1.9 1.7 -Post Debridement (cm) - Depth 0.1 0.1 -Total Square (Post) (cm) 1.52 1.02 -Area of Debridement (cm) - Length 0.8 0.6 -Area of Debridement (cm) - Width 1.9 1.7 -Total Square (Area) (cm) 1.52 1.02 -Tunneling No No -Undermining/Tunneling No No -Circular Undermining No No -Wound/Ulcer Outcome Not Healed Not Healed -Ulcer Cleansing Rinsed/ Rinsed/ Irrigated with Irrigated with Saline Saline -Foul Odor after Cleansing No No -Bioengineered Tissue No -Bleeding Controlled with Pressure Pressure -Treatment Response Procedure Procedure Tolerated Well Tolerated Well -Offloading Yes Yes -Type of Offloading Surgical Shoe Surgical Shoe -Debridement - Subq, 1st 20sq cm Yes Yes #1- L MEDIAL ANKLE -Time 14:35 14:14 14:09 -Correct Patient Yes Yes Yes -Correct Side, Site, Position Yes Yes Yes -Correct Procedure Yes Yes Yes -Procedure Performed Yes Yes Yes -Type of Procedure Debridement Debridement Debridement -Clinical Debridement Muscle / Fascia Muscle / Fascia Muscle / Fascia -Tissue Removed Muscle Muscle Tendon -Post Debridement (cm) - Length 1.1 1.1 1.0 -Post Debridement (cm) - Width 1.0 1.2 1.1 -Post Debridement (cm) - Depth 0.2 0.2 0.3 -Total Square (Post) (cm) 1.10 1.32 1.10 -Area of Debridement (cm) - Length 1.1 1.1 1.0 -Area of Debridement (cm) - Width 1.0 1.2 1.1 -Total Square (Area) (cm) 1.10 1.32 1.10 -Tunneling No No No -Undermining/Tunneling No No No -Circular Undermining No No No -Wound/Ulcer Outcome Not Healed Not Healed Not Healed -Ulcer Cleansing Rinsed/ Rinsed/ Rinsed/ Irrigated with Irrigated with Irrigated with Saline Saline Saline -Foul Odor after Cleansing No No No -Bioengineered Tissue Yes Yes Yes -Type of Bioengineered Tissue Epicord Epifix 18mm Epicord Disc -Expiration Date 10/31/28 01/30/29 10/31/28 -Product Lot Number [id number] -Percent Used 100 505 100 -Lot number of Saline Used [id number] -Bleeding Controlled with Pressure Pressure Pressure -Treatment Response Procedure Procedure Procedure Tolerated Well Tolerated Well Tolerated Well -Offloading No Yes No -Type of Offloading Surgical Shoe -Debridement - Subq, 1st 20sq cm No No -Debridement - Muscle / Fascia, 1st No No No 20sq cm -Apply Skin Sub - 1st 25 sq cm - Legs 1 1 1 -Epicord Application 1-4 (per sq cm) 6 6 -Epifix 18mm Disc Application 1-4 3 Pain Scale: 0-10 Numeric Is Patient Pain Free? Yes Yes Yes 07/27/24 11:23 Wound Center Nurse 2 #2 L LAT HEEL -Correct Patient -Correct Side, Site, Position -Correct Procedure -Procedure Performed -Post Debridement (cm) - Length -Post Debridement (cm) - Width -Post Debridement (cm) - Depth -Total Square (Post) (cm) -Area of Debridement (cm) - Length -Area of Debridement (cm) - Width -Total Square (Area) (cm) -Wound/Ulcer Outcome 3-left foot -Time 11:24 -Correct Patient Yes -Correct Side, Site, Position Yes -Correct Procedure Yes -Procedure Performed Yes -Type of Procedure Debridement -Clinical Debridement Subcutaneous -Tissue Removed Subcutaneous -Post Debridement (cm) - Length 0.6 -Post Debridement (cm) - Width 1.9 -Post Debridement (cm) - Depth 0.1 -Total Square (Post) (cm) 1.14 -Area of Debridement (cm) - Length 0.6 -Area of Debridement (cm) - Width 1.9 -Total Square (Area) (cm) 1.14 -Tunneling No -Undermining/Tunneling No -Circular Undermining No -Wound/Ulcer Outcome Not Healed -Ulcer Cleansing Rinsed/ Irrigated with Saline -Foul Odor after Cleansing No -Bioengineered Tissue No -Bleeding Controlled with Pressure -Treatment Response Procedure Tolerated Well -Offloading No -Type of Offloading -Debridement - Subq, 1st 20sq cm Yes #1- L MEDIAL ANKLE -Time 11:24 -Correct Patient Yes -Correct Side, Site, Position Yes -Correct Procedure Yes -Procedure Performed Yes -Type of Procedure Debridement -Clinical Debridement Muscle / Fascia -Tissue Removed Muscle -Post Debridement (cm) - Length 0.9 -Post Debridement (cm) - Width 1.1 -Post Debridement (cm) - Depth 0.3 -Total Square (Post) (cm) 0.99 -Area of Debridement (cm) - Length 0.9 -Area of Debridement (cm) - Width 1.1 -Total Square (Area) (cm) 0.99 -Tunneling No -Undermining/Tunneling No -Circular Undermining No -Wound/Ulcer Outcome Not Healed -Ulcer Cleansing Rinsed/ Irrigated with Saline -Foul Odor after Cleansing No -Bioengineered Tissue Yes -Type of Bioengineered Tissue Epifix 18mm Disc -Expiration Date 01/30/29 -Product Lot Number [id number] -Percent Used 100 -Lot number of Saline Used [id number] -Bleeding Controlled with Pressure -Treatment Response Procedure Tolerated Well -Offloading No -Type of Offloading -Debridement - Subq, 1st 20sq cm -Debridement - Muscle / Fascia, 1st No 20sq cm -Apply Skin Sub - 1st 25 sq cm - Legs 1 -Epicord Application 1-4 (per sq cm) -Epifix 18mm Disc Application 1-4 3 Pain Scale: 0-10 Numeric Is Patient Pain Free? Yes - Nurse 3 - General Ulcer D/C NN Start: 07/06/24 14:11 Freq: Status: Active Protocol: Activity Type Activity Date Activity User E-sign Co-sign Detail Recorded Client Recorded Date Recorded By Document 07/06/24 14:48 KW [id number] 07/06/24 14:48 KW Document 07/13/24 14:34 ML [id number] 07/13/24 14:36 ML Document 07/20/24 14:20 KW [id number] 07/20/24 14:20 KW Document 07/27/24 11:42 DL [id number] 07/27/24 11:45 DL 07/06/24 07/13/24 07/20/24 14:48 14:34 14:20 Wound Care Center Nurse 3 3-left foot -Foul Odor after Cleansing -Primary Dressing Applied Silicone Border Silicone Border Foam 4x4 Foam 4x4 -Other Dressing -Primary Dressing Covered/Secured with Dry Gauze -Silicone Border Foam 4x4 1 1 #1- L MEDIAL ANKLE -Foul Odor after Cleansing -Primary Dressing Applied Silicone Border Silicone Border Silicone Border Foam 4x4, Foam 6x6 Foam 4x4 Silicone Border Foam 6x6 -Other Dressing -Primary Dressing Covered/Secured with -Silicone Border Foam 4x4 1 1 -Silicone Border Foam 6x6 1 1 -Wound Comment(s) LLE -Tubular Bandage Single Layer Single Layer Single Layer -Size of Tubigrip Used Size F Size F Size F -Size F ($) 1 1 1 Pain Scale: 0-10 Numeric Is Patient Pain Free? Yes Yes Yes Pain Scale: Adult NonVerbal Is Patient Pain Free? Yes WC - Visit Discharge Discharge Condition Stable Stable Ambulatory Status Wheelchair Wheelchair Transportation Private Auto Private Auto Medication Reconcilliation completed & No No provided to patient/care provider Clinical Summary of Care Provided Yes Yes 07/27/24 11:42 Wound Care Center Nurse 3 3-left foot -Foul Odor after Cleansing No -Primary Dressing Applied -Other Dressing Epifix/hydrogel -Primary Dressing Covered/Secured with Dry Gauze & Roll Gauze, Secured with Tape -Silicone Border Foam 4x4 #1- L MEDIAL ANKLE -Foul Odor after Cleansing No -Primary Dressing Applied -Other Dressing epifix/hydrogel -Primary Dressing Covered/Secured with Dry Gauze & Roll Gauze, Secured with Tape -Silicone Border Foam 4x4 -Silicone Border Foam 6x6 -Wound Comment(s) Dressing applied per Jhonatan gomez. LLE -Tubular Bandage Single Layer -Size of Tubigrip Used Size F -Size F ($) 1 Pain Scale: 0-10 Numeric Is Patient Pain Free? Yes Pain Scale: Adult NonVerbal Is Patient Pain Free? 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 All findings were discussed with the patient. All questions were answered to the patient's satisfaction. Excisional debridement down to including subcutaneous tissue, fascia and muscle to the left lower extremity full-thickness wound with a number 3 mm dermal curette and #15 blade without incident. Predebridement measurement was 0.8 x 1.0 x 0.2 cm. Postdebridement measurement is 0.9 x 1.1 x 0.3 cm. Epifix 18 mm disc was applied to the left full-thickness ulceration with 100% use. Sixth application. The graft site was free and clear of any infection. The wound/skin graft substitute was dressed with nonadherent bandage secured in place with Steri-Strips followed by bolster dressing as well as a double layer Tubigrip. Excisional debridement down to and including subcutaneous tissue to the sanguinous crust to the dorsal aspect of the first metatarsophalangeal joint of the left foot done without incident with a sterile pickup and 15 blade. Predebridement measurement was 0.7 x 1.0 x 0.1 cm. Postdebridement measurement was 0.9 x 1.1 x 0.3 cm. The patient will follow-up with Dr. Mazariegos in 1 week. (2) Other specified peripheral vascular diseases: CODE(S): I73.89 - Other specified peripheral vascular diseases (3) Non-pressure chronic ulcer of other part of left foot with fat layer exposed: CODE(S): L97.522 - Non-pressure chronic ulcer of other part of left foot with fat layer exposed
--- NOTE | 2024-07-28 11:48 | WC ---
PHOTO 07/27/24 LEFT FOOT
--- NOTE | 2024-07-28 11:48 | WC ---
PHOTO 07/27/[address] [facility] ANKLE
== END 2024-07-30 23:59 | disposition home or self-care (01) ==
LOC: WC 11:00
PROVIDERS: PCP Family Medicine; Referring Provider Podiatrist Foot & Ankle Surgery; Visit Provider Podiatrist Foot & Ankle Surgery
DX: L97.325 Non-pressure chronic ulcer of left ankle with muscle involvement without evidence of necrosis (principal); L97.522 Non-pressure chronic ulcer of other part of left foot with fat layer exposed; J44.9 Chronic obstructive pulmonary disease, unspecified; F41.9 Anxiety disorder, unspecified; I25.10 Atherosclerotic heart disease of native coronary artery without angina pectoris; I73.9 Peripheral vascular disease, unspecified; E78.5 Hyperlipidemia, unspecified; I10 Essential (primary) hypertension; Z87.891 Personal history of nicotine dependence; Z95.5 Presence of coronary angioplasty implant and graft; I73.89 Other specified peripheral vascular diseases; Z99.81 Dependence on supplemental oxygen; Z95.1 Presence of aortocoronary bypass graft; Z85.46 Personal history of malignant neoplasm of prostate; Z85.118 Personal history of other malignant neoplasm of bronchus and lung; Z79.01 Long term (current) use of anticoagulants; Z86.711 Personal history of pulmonary embolism
CPT/HCPCS: 11042; 15271; 15275; 87070; 87075; 87077; 87186; 87205; Q4186; Q4187

== ENCOUNTER 2024-08-24 14:00 | Outpatient (RCR) | payer MEDICARE, BC, SELFPAY ==
[2024-07-31 00:35] VITALS: BP 122/60; PULSE 91; RESP 16; TEMP 36.2; O2SAT 93; BMI 22.4
[2024-08-03 13:57] VITALS: BP 127/53; PULSE 65; RESP 18; TEMP 36.1; O2SAT 97; BMI 22.4
--- NOTE | 2024-08-03 14:33 | PCM.WC.PN ---
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 Drew. Patient has a significant history for COPD that he sees Palliative care to help manage. He is on home O2. He also has a history of Prostate CA, Squamous carcinoma of left lung, HTN, anxiety and depression, AAA without rupture, CAD, coronary artery stent placement (multiple), CABG x 3, former smoker, PAD, PBH, and pulmonary embolism- on anticoagulants, and hyperlipidemia. He has had arterial studies in the past and had some vascular procedures (by Dr. Freeman) to his left leg. He denies hx of diabetes. His providers are all with [facility]. He has had this left medial ankle ulcer for 3 months. He has been placing Santyl covered with [place] [facility]. There has not been much improvement to this area. He states that he was referred to see us by [facility] and that Dr. Drew also suggested he get a second opinion. He is on a new medication that his states is an antibiotic but they are unsure of the name. He denies fever, chills, nausea or vomiting. He comes in today for further evaluation and treatment. Progress of Wound: Stable slow healing wound to the left ankle and great toe. Subjective Subjective Mr. Corley is a 84-year-old male presenting to the wound care center today for follow-up evaluation of full-thickness wound to the left medial ankle and big toe joint of the left foot. Patient has been compliant with dressing changes. Patient denies any strikethrough. He continues to offload the area as discussed. Denies trauma. Denies constitutional symptoms. No other pedal complaints at this time. Objective Data Objective Data Vital Signs: Vital Signs Temp Pulse Resp BP Pulse Ox O2 Del Method O2 Flow Rate 97 F L 65 18 127/53 H 97 Nasal Cannula 3 08/03/24 13:57 08/03/24 13:57 08/03/24 13:57 08/03/24 13:57 08/03/24 13:57 08/03/24 13:57 08/03/24 13:57 Oxygen Flow Rate (L/min) 3 Oxygen Delivery Method Nasal Cannula Weight: 74.843 kg Body Mass Index (BMI) 22.4 Lab / Micro Data Micro: Microbiology 07/13/24 14:15 Ulcer, Decubitus - Left Foot Gram Stain - Final 07/13/24 14:15 Ulcer, Decubitus - Left Foot Wound Culture - Final Staphylococcus capitis 07/13/24 14:15 Ulcer, Decubitus - Left Foot Anaerobic Culture - Final No growth in 5 days. Physical Exam Narrative Vascular: DP and PT pulses are faintly palpable. CFT is brisk. Blanchable erythema appreciated to the medial ankle and first metatarsophalangeal joint to the left foot, improving skin temp great is warm to cool from proximal ankles to distal digits left lower extremity. Neurological: Light touch intact. Patient does despond painful stimuli. Dermatological: Full-thickness wound to the dorsal aspect left foot first metatarsal phalangeal joint measuring 0.7 x 2.0 x 0.1 cm. Wound base is granular.. Full-thickness wound to the medial ankle of the left lower extremity measuring 1.0 x 1.0 x 0.4 cm. Probe to bone. Blanchable erythema to the periwound of the ankle full-thickness wound with no sign of infection. Excisional debridement down to including subcutaneous tissue, fascia and muscle and bone to the left lower extremity full-thickness wound with a number 3 mm dermal curette and #15 blade without incident. Predebridement measurement was 0.8 x 0.9 x 0.2 cm. Postdebridement measurement is 1.0 x 1.0 x 0.4 cm Epi cord 2.0 x 3.0 cm was applied to the left full-thickness ulceration with 100% use. Seventh application. The graft site was free and clear of any infection. The wound/skin graft substitute was dressed with nonadherent bandage secured in place with Steri-Strips followed by bolster dressing as well as a double layer Tubigrip. Excisional debridement down to and including subcutaneous tissue to the sanguinous crust to the dorsal aspect of the first metatarsophalangeal joint of the left foot done without incident with a sterile pickup and 15 blade. Predebridement measurement was 0.6 x 1.8 x 0.1 cm. Postdebridement measurement was 0.7 x 2.0 x 0.1 cm. Musculoskeletal: Mild pain to palpation to full-thickness wound to the left lower extremity medial ankle. No pain with calf pressure. Debridement Note Debridement Note Debridement Free Text: Excisional debridement down to including subcutaneous tissue, fascia and muscle and bone to the left lower extremity full-thickness wound with a number 3 mm dermal curette and #15 blade without incident. Predebridement measurement was 0.8 x 0.9 x 0.2 cm. Postdebridement measurement is 1.0 x 1.0 x 0.4 cm Epi cord 2.0 x 3.0 cm was applied to the left full-thickness ulceration with 100% use. Seventh application. The graft site was free and clear of any infection. The wound/skin graft substitute was dressed with nonadherent bandage secured in place with Steri-Strips followed by bolster dressing as well as a double layer Tubigrip. Excisional debridement down to and including subcutaneous tissue to the sanguinous crust to the dorsal aspect of the first metatarsophalangeal joint of the left foot done without incident with a sterile pickup and 15 blade. Predebridement measurement was 0.6 x 1.8 x 0.1 cm. Postdebridement measurement was 0.7 x 2.0 x 0.1 cm. Post-Debridement Measurements and Additional Note: Post-Debridement Measurements/Treatment - Nurse 1 - General Ulcer Assessment Start: 08/03/24 13:56 Freq: Status: Active Protocol: MILENA Activity Type Activity Date Activity User E-sign Co-sign Detail Recorded Client Recorded Date Recorded By Document 08/03/24 13:57 NC [id number] 08/03/24 14:04 NC 08/03/24 13:57 - Today's Visit Information Type of service Follow-up Visit (Physician/[facility] ) Arrival Mode Ambulatory Accompanied by Patient Identification Verified (Name & Yes ) Safety Precautions Fall Prevention Height and Weight Body Mass Index (BMI) 22.4 BMI Classification Normal Vital Signs Temperature (97.8 F-99.1 F) 97 F L Temperature Source Temporal Pulse Rate (60-100) 65 Pulse Location Monitor Respiratory Rate (12-18) 18 Respiratory rate source Observation Pulse Oximetry 97 Oxygen Delivery Method Nasal Cannula O2 L/MIN (L/min) 3 Blood Pressure (90/60-120/80) 127/53 H Blood Pressure Mean (mm Hg) 77 Source Monitor Position Sitting Blood Pressure Location Right Arm History Since Last Visit- (Skip if this is Patient's initial visit) Has dressing in place as prescribed Yes Has compression in place as prescribed Yes Has offloadiing in place as prescribed Yes Experienced any changes in pain level or Yes management Left Footwear Regular Shoe Right Footwear Regular Shoe Pain Scale: 0-10 Numeric Is Patient Pain Free? Yes WC - Nurse 1 - General Ulcer Measurement Start: 08/03/24 13:56 Freq: Status: Active Protocol: Activity Type Activity Date Activity User E-sign Co-sign Detail Recorded Client Recorded Date Recorded By Document 08/03/24 13:57 NC [id number] 08/03/24 14:04 NC 08/03/24 13:57 Wound Center Nurse 1 3-left foot -Current Size (cm) - Length 0.7 -Current Size (cm) - Width 2.0 -Current Size (cm) - Depth 0.1 -Total Square Cm 1.40 -Photo Taken No -Tunneling No -Undermining/Tunneling No -Circular Undermining No -Exudate Amt Medium -Exudate Type Purulent -Wound Margin Flat & Intact -Granulation Amt Large (67-100%) -Granulation Quality Pale,[place] -Necrosis Amt Small (1-33%) -Necrotic Tissue Type Adherent Slough -Texture (Bell-wound Skin Appearance) Assessed -Moisture (Bell-wound Skin Appearance) Assessed -Color (Bell-wound Skin Appearance) Assessed -Temperature (Bell-wound Skin No Abnormality Appearance) (Pt Warm) -Tenderness on Palpation (Bell-wound No Skin Appearance) -Ulcer Cleansing Soap and Water -Foul Odor after Cleansing No -Anesthetic Used 4% Lidocaine Solution #1- L MEDIAL ANKLE -Current Size (cm) - Length 1 -Current Size (cm) - Width 1.5 -Current Size (cm) - Depth 0.2 -Total Square Cm 1.5 -Photo Taken No -Tunneling No -Undermining/Tunneling No -Circular Undermining No -Exudate Amt Medium -Exudate Type Purulent -Wound Margin Flat & Intact -Granulation Amt Large (67-100%) -Granulation Quality Pale,[place] -Necrosis Amt Medium (34-66%) -Necrotic Tissue Type Adherent Slough -Texture (Bell-wound Skin Appearance) Assessed -Moisture (Bell-wound Skin Appearance) Assessed -Color (Bell-wound Skin Appearance) Assessed -Temperature (Bell-wound Skin No Abnormality Appearance) (Pt Warm) -Tenderness on Palpation (Bell-wound No Skin Appearance) -Ulcer Cleansing Soap and Water -Foul Odor after Cleansing No -Anesthetic Used 4% Lidocaine Solution WC - Nurse 2 - General Ulcer CM Notes Start: 08/03/24 13:56 Freq: Status: Active Protocol: Activity Type Activity Date Activity User E-sign Co-sign Detail Recorded Client Recorded Date Recorded By Document 08/03/24 14:12 SONNY [id number] 08/03/24 14:21 SONNY 08/03/24 14:12 Wound Center Nurse 2 3-left foot -Time 14:13 -Correct Patient Yes -Correct Side, Site, Position Yes -Correct Procedure Yes -Procedure Performed Yes -Type of Procedure Debridement -Clinical Debridement Subcutaneous -Tissue Removed Subcutaneous -Post Debridement (cm) - Length 0.7 -Post Debridement (cm) - Width 2.0 -Post Debridement (cm) - Depth 0.1 -Total Square (Post) (cm) 1.40 -Area of Debridement (cm) - Length 0.7 -Area of Debridement (cm) - Width 2.0 -Total Square (Area) (cm) 1.40 -Tunneling No -Undermining/Tunneling No -Circular Undermining No -Wound/Ulcer Outcome Not Healed -Ulcer Cleansing Rinsed/ Irrigated with Saline -Foul Odor after Cleansing No -Bioengineered Tissue No -Bleeding Controlled with Pressure -Treatment Response Procedure Tolerated Well -Offloading No -Debridement - Subq, 1st 20sq cm Yes #1- L MEDIAL ANKLE -Time 14:13 -Correct Patient Yes -Correct Side, Site, Position Yes -Correct Procedure Yes -Procedure Performed Yes -Type of Procedure Debridement -Clinical Debridement Bone -Tissue Removed Non-viable tissue -Post Debridement (cm) - Length 1 -Post Debridement (cm) - Width 1 -Post Debridement (cm) - Depth 0.4 -Total Square (Post) (cm) 1 -Area of Debridement (cm) - Length 1 -Area of Debridement (cm) - Width 1 -Total Square (Area) (cm) 1 -Tunneling No -Undermining/Tunneling No -Circular Undermining No -Wound/Ulcer Outcome Not Healed -Ulcer Cleansing Rinsed/ Irrigated with Saline -Foul Odor after Cleansing No -Bioengineered Tissue Yes -Type of Bioengineered Tissue Epicord -Expiration Date 10/31/28 -Product Lot Number [id number] -Percent Used 100 -Lot number of Saline Used [id number] -Bleeding Controlled with Pressure -Treatment Response Procedure Tolerated Well -Offloading No -Debridement - Bone, 1st 20sq cm No -Epicord Application 1-4 (per sq cm) 6 Pain Scale: 0-10 Numeric Is Patient Pain Free? 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 All findings were discussed with the patient. All questions were answered to the patient's satisfaction. Excisional debridement down to including subcutaneous tissue, fascia and muscle and bone to the left lower extremity full-thickness wound with a number 3 mm dermal curette and #15 blade without incident. Predebridement measurement was 0.8 x 0.9 x 0.2 cm. Postdebridement measurement is 1.0 x 1.0 x 0.4 cm Epi cord 2.0 x 3.0 cm was applied to the left full-thickness ulceration with 100% use. Seventh application. The graft site was free and clear of any infection. The wound/skin graft substitute was dressed with nonadherent bandage secured in place with Steri-Strips followed by bolster dressing as well as a double layer Tubigrip. Excisional debridement down to and including subcutaneous tissue to the sanguinous crust to the dorsal aspect of the first metatarsophalangeal joint of the left foot done without incident with a sterile pickup and 15 blade. Predebridement measurement was 0.6 x 1.8 x 0.1 cm. Postdebridement measurement was 0.7 x 2.0 x 0.1 cm. Educated the patient and his regarding the concern for delayed healing and may possibly recommend the patient to vascular surgery with screening hospital for further workup and evaluation and possible intervention as needed. We did educate the patient on possible durable medical equipment but due to the rigid contracture of the subtalar joint the patient would not benefit from a AFO at this time. He would benefit from reconstructive surgery however he is not a candidate due to his decreased blood flow. We will continue weekly wound care. The patient will follow-up with Dr. Mazariegos in 1 week. (2) Non-pressure chronic ulcer of other part of left foot with fat layer exposed: CODE(S): L97.522 - Non-pressure chronic ulcer of other part of left foot with fat layer exposed (3) Other specified peripheral vascular diseases: CODE(S): I73.89 - Other specified peripheral vascular diseases
[2024-08-10 13:57] VITALS: BP 120/54; PULSE 72; RESP 16; TEMP 35.9; BMI 22.4
--- NOTE | 2024-08-10 14:29 | PN.PCM_ITS ---
History of Present Illness Date of Service: 08/10/24 Chief Complaint: Left medial ankle ulcer History of Wound: Patient is a very pleasant 83 year old male with a left medial ankle ulcer that he has been seeing nutrition coordinator, Dr. Drew. Patient has a significant history for COPD that he sees Palliative care to help manage. He is on home O2. He also has a history of Prostate CA, Squamous carcinoma of left lung, HTN, anxiety and depression, AAA without rupture, CAD, coronary artery stent placement (multiple), CABG x 3, former smoker, PAD, PBH, and pulmonary embolism- on anticoagulants, and hyperlipidemia. He has had arterial studies in the past and had some vascular procedures (by Dr. Freeman) to his left leg. He denies hx of diabetes. His providers are all with [facility]. He has had this left medial ankle ulcer for 3 months. He has been placing Santyl covered with [place] SAP. There has not been much improvement to this area. He states that he was referred to see us by [facility] and that Dr. Drew also suggested he get a second opinion. He is on a new medication that his states is an antibiotic but they are unsure of the name. He denies fever, chills, nausea or vomiting. He comes in today for further evaluation and treatment. Progress of Wound: Stable slow healing wound to the left ankle and great toe. Subjective Subjective Mr. Corley is a 84-year-old male presenting to the wound care center today follow-up evaluation of full-thickness wound to the medial ankle and first metatarsophalangeal joint of the left lower extremity. He left the dressing clean dry and intact. He states the graft stayed on all week. He elevates as instructed. He denies any pain to left lower extremity. He denies trauma. Denies constitutional symptoms. No other pedal complaints at this time. Objective Data Objective Data Vital Signs: Vital Signs Temp Pulse Resp BP Pulse Ox O2 Del Method O2 Flow Rate 96.7 F L 72 16 120/54 L 97 Room Air 3 08/10/24 13:57 08/10/24 13:57 08/10/24 13:57 08/10/24 13:57 08/03/24 13:57 08/10/24 13:57 08/03/24 13:57 Oxygen Flow Rate (L/min) 3 Oxygen Delivery Method Room Air Weight: 74.843 kg Body Mass Index (BMI) 22.4 Lab / Micro Data Micro: Microbiology 07/13/24 14:15 Ulcer, Decubitus - Left Foot Gram Stain - Final 07/13/24 14:15 Ulcer, Decubitus - Left Foot Wound Culture - Final Staphylococcus capitis 07/13/24 14:15 Ulcer, Decubitus - Left Foot Anaerobic Culture - Final No growth in 5 days. Physical Exam Narrative Vascular: DP and PT pulses are faintly palpable. CFT is brisk. No erythema appreciated. Neurological: Light touch intact. Patient does despond painful stimuli. Dermatological: Full-thickness wound to the dorsal aspect left foot first metatarsal phalangeal joint measuring 0.6 x 1.8 x 0.1 cm. Wound base is granular.. Full-thickness wound to the medial ankle of the left lower extremity measuring 0.9 x 1.0 x 0.2 cm. Negative probe to bone. No erythema. Excisional debridement down to including subcutaneous tissue, fascia and muscle to the left lower extremity full-thickness wound with a number 3 mm dermal curette and #15 blade without incident. Predebridement measurement was 0.8 x 0.8 x 0.1 cm. Postdebridement measurement is 0.9 x 1.0 x 0.2 cm. Epi cord 2.0 x 3.0 cm was applied to the left full-thickness ulceration with 100% use. 8 application. The graft site was free and clear of any infection. The wound/skin graft substitute was dressed with nonadherent bandage secured in place with Steri-Strips followed by bolster dressing as well as a double layer Tubigrip. Excisional debridement down to and including subcutaneous tissue to the sanguinous crust to the dorsal aspect of the first metatarsophalangeal joint of the left foot done without incident with a sterile pickup and 15 blade. Predebridement measurement was 0.5 x 1.7 x 0.1 cm. Postdebridement measurement was 0.6 x 1.8 x 0.1 cm. Musculoskeletal: No pain to palpation to full-thickness wound to the left lower extremity medial ankle. No pain with calf pressure. Debridement Note Debridement Note Debridement Free Text: Excisional debridement down to including subcutaneous tissue, fascia and muscle to the left lower extremity full-thickness wound with a number 3 mm dermal curette and #15 blade without incident. Predebridement measurement was 0.8 x 0.8 x 0.1 cm. Postdebridement measurement is 0.9 x 1.0 x 0.2 cm. Epi cord 2.0 x 3.0 cm was applied to the left full-thickness ulceration with 100% use. 8 application. The graft site was free and clear of any infection. The wound/skin graft substitute was dressed with nonadherent bandage secured in place with Steri-Strips followed by bolster dressing as well as a double layer Tubigrip. Excisional debridement down to and including subcutaneous tissue to the sanguinous crust to the dorsal aspect of the first metatarsophalangeal joint of the left foot done without incident with a sterile pickup and 15 blade. Predebridement measurement was 0.5 x 1.7 x 0.1 cm. Postdebridement measurement was 0.6 x 1.8 x 0.1 cm. Post-Debridement Measurements and Additional Note: Post-Debridement Measurements/Treatment - Nurse 1 - General Ulcer Assessment Start: 08/03/24 13:56 Freq: Status: Active Protocol: WC.LOWEXT Activity Type Activity Date Activity User E-sign Co-sign Detail Recorded Client Recorded Date Recorded By Document 08/03/24 13:57 GA [id number] 08/03/24 14:04 GA Document 08/10/24 13:57 [id number] 08/10/24 14:02 08/03/24 08/10/24 13:57 13:57 - Today's Visit Information Type of service Follow-up Visit Follow-up Visit (Physician/AGRICULTURAL PILOT (Physician/AGRICULTURAL PILOT ) ) Arrival Mode Ambulatory Wheelchair Accompanied by Patient Identification Verified (Name & Yes Yes ) Patient Requires Transmission-Based No Precautions Safety Precautions Fall Prevention Height and Weight Body Mass Index (BMI) 22.4 22.4 BMI Classification Normal Normal Vital Signs Temperature (97.8 F-99.1 F) 97 F L 96.7 F L Temperature Source Temporal Temporal Pulse Rate (60-100) 65 72 Pulse Location Monitor Monitor Respiratory Rate (12-18) 18 16 Respiratory rate source Observation Observation Pulse Oximetry 97 Oxygen Delivery Method Nasal Cannula Room Air O2 L/MIN (L/min) 3 Blood Pressure (90/60-120/80) 127/53 H 120/54 L Blood Pressure Mean (mm Hg) 77 76 Source Monitor Monitor Position Sitting Sitting Blood Pressure Location Right Arm Left Arm History Since Last Visit- (Skip if this is Patient's initial visit) Have you changed medications since your No last visit? Any new allergies or adverse reactions No Had a fall/change in ADL's that may No increase risk of falls Signs or symptoms of abuse and/or No neglect since last visit Have you been in the hospital since your No last visit? Has dressing in place as prescribed Yes Yes Has compression in place as prescribed Yes Yes Has offloadiing in place as prescribed Yes N/A Experienced any changes in pain level or Yes No management Left Footwear Regular Shoe Regular Shoe Right Footwear Regular Shoe Regular Shoe Pain Scale: 0-10 Numeric Is Patient Pain Free? Yes Yes WC - Nurse 1 - General Ulcer Measurement Start: 08/03/24 13:56 Freq: Status: Active Protocol: Activity Type Activity Date Activity User E-sign Co-sign Detail Recorded Client Recorded Date Recorded By Document 08/03/24 13:57 GA [id number] 08/03/24 14:04 GA Document 08/10/24 13:57 [id number] 08/10/24 14:02 08/03/24 08/10/24 13:57 13:57 Wound Center Nurse 1 3-left foot -Current Size (cm) - Length 0.7 0.5 -Current Size (cm) - Width 2.0 2.0 -Current Size (cm) - Depth 0.1 0.1 -Total Square Cm 1.40 1.00 -Date of Last Picture (Recall this 08/10/24 field) -Photo Taken No Yes -Epithelialization None Present -Tunneling No No -Undermining/Tunneling No No -Circular Undermining No No -Exudate Amt Medium Small -Exudate Type Purulent Yellow/Green -Wound Margin Flat & Intact Distinct, Outline Attached -Granulation Amt Large (67-100%) Medium (34-66%) -Granulation Quality Pale,[place] Red -Slough/Fibrin Yes -Necrosis Amt Small (1-33%) Medium (34-66%) -Necrotic Tissue Type Adherent Slough -Texture (Bell-wound Skin Appearance) Assessed Assessed -Moisture (Bell-wound Skin Appearance) Assessed Assessed -Color (Bell-wound Skin Appearance) Assessed Assessed -Temperature (Bell-wound Skin No Abnormality No Abnormality Appearance) (Pt Warm) (Pt Warm) -Tenderness on Palpation (Bell-wound No Yes Skin Appearance) -Ulcer Cleansing Soap and Water Soap and Water -Foul Odor after Cleansing No No -Anesthetic Used 4% Lidocaine 5% Lidocaine Solution Gel #1- L MEDIAL ANKLE -Current Size (cm) - Length 1 1.1 -Current Size (cm) - Width 1.5 1.0 -Current Size (cm) - Depth 0.2 0.6 -Total Square Cm 1.5 1.10 -Date of Last Picture (Recall this 08/10/24 field) -Photo Taken No Yes -Epithelialization None Present -Tunneling No No -Undermining/Tunneling No No -Circular Undermining No No -Change in Wound Grade/Stage No -Exudate Amt Medium -Exudate Type Purulent -Wound Margin Flat & Intact Distinct, Outline Attached -Granulation Amt Large (67-100%) None Present (0 %) -Granulation Quality Pale,[place] -Slough/Fibrin Yes -Necrosis Amt Medium (34-66%) Large (67-100%) -Necrotic Tissue Type Adherent Slough Adherent Slough -Texture (Bell-wound Skin Appearance) Assessed Assessed -Moisture (Bell-wound Skin Appearance) Assessed Assessed -Color (Bell-wound Skin Appearance) Assessed Assessed -Temperature (Bell-wound Skin No Abnormality No Abnormality Appearance) (Pt Warm) (Pt Warm) -Tenderness on Palpation (Bell-wound No Yes Skin Appearance) -Ulcer Cleansing Soap and Water Soap and Water -Foul Odor after Cleansing No No -Anesthetic Used 4% Lidocaine 5% Lidocaine Solution Gel Lower Limb Edema Present No Left Calf (cm) 29.1 Left Ankle (cm) 24 WC - Nurse 2 - General Ulcer CM Notes Start: 08/03/24 13:56 Freq: Status: Active Protocol: Activity Type Activity Date Activity User E-sign Co-sign Detail Recorded Client Recorded Date Recorded By Document 08/03/24 14:12 SONNY [id number] 08/03/24 14:21 JF Edit Result 08/03/24 14:12 JF (1) 000 08/09/24 15:06 JF Document 08/10/24 14:05 SONNY [id number] 08/10/24 14:12 JF (1) #1- L MEDIAL ANKLE - Apply Skin Sub - 1st 25 sq cm - Legs => 1 08/03/24 08/10/24 14:12 14:05 Wound Center Nurse 2 3-left foot -Time 14:13 14:05 -Correct Patient Yes Yes -Correct Side, Site, Position Yes Yes -Correct Procedure Yes Yes -Procedure Performed Yes Yes -Type of Procedure Debridement Debridement -Clinical Debridement Subcutaneous Subcutaneous -Tissue Removed Subcutaneous Subcutaneous -Post Debridement (cm) - Length 0.7 0.6 -Post Debridement (cm) - Width 2.0 1.8 -Post Debridement (cm) - Depth 0.1 0.1 -Total Square (Post) (cm) 1.40 1.08 -Area of Debridement (cm) - Length 0.7 0.6 -Area of Debridement (cm) - Width 2.0 1.8 -Total Square (Area) (cm) 1.40 1.08 -Tunneling No No -Undermining/Tunneling No No -Circular Undermining No No -Wound/Ulcer Outcome Not Healed Not Healed -Ulcer Cleansing Rinsed/ Rinsed/ Irrigated with Irrigated with Saline Saline -Foul Odor after Cleansing No No -Bioengineered Tissue No No -Bleeding Controlled with Pressure Pressure -Treatment Response Procedure Procedure Tolerated Well Tolerated Well -Offloading No No -Debridement - Subq, 1st 20sq cm Yes Yes #1- L MEDIAL ANKLE -Time 14:13 14:05 -Correct Patient Yes Yes -Correct Side, Site, Position Yes Yes -Correct Procedure Yes Yes -Procedure Performed Yes Yes -Type of Procedure Debridement Debridement -Clinical Debridement Bone Muscle / Fascia -Tissue Removed Non-viable Muscle tissue -Post Debridement (cm) - Length 1 0.9 -Post Debridement (cm) - Width 1 1.0 -Post Debridement (cm) - Depth 0.4 0.2 -Total Square (Post) (cm) 1 0.90 -Area of Debridement (cm) - Length 1 0.9 -Area of Debridement (cm) - Width 1 1.0 -Total Square (Area) (cm) 1 0.90 -Tunneling No No -Undermining/Tunneling No No -Circular Undermining No No -Wound/Ulcer Outcome Not Healed Not Healed -Ulcer Cleansing Rinsed/ Rinsed/ Irrigated with Irrigated with Saline Saline -Foul Odor after Cleansing No No -Bioengineered Tissue Yes Yes -Type of Bioengineered Tissue Epicord Epicord -Expiration Date 10/31/28 10/31/28 -Product Lot Number [id number] -Percent Used 100 100 -Lot number of Saline Used [id number] -Bleeding Controlled with Pressure Pressure -Treatment Response Procedure Procedure Tolerated Well Tolerated Well -Offloading No No -Debridement - Muscle / Fascia, 1st No 20sq cm -Debridement - Bone, 1st 20sq cm No -Apply Skin Sub - 1st 25 sq cm - Legs 1 1 -Epicord Application 1-4 (per sq cm) 6 6 Pain Scale: 0-10 Numeric Is Patient Pain Free? Yes Yes - Nurse 3 - General Ulcer D/C NN Start: 08/03/24 13:56 Freq: Status: Active Protocol: Activity Type Activity Date Activity User E-sign Co-sign Detail Recorded Client Recorded Date Recorded By Document 08/03/24 14:38 MT [id number] 08/03/24 14:39 MT Document 08/10/24 14:23 DL [id number] 08/10/24 14:24 DL 08/03/24 08/10/24 14:38 14:23 Wound Care Center Nurse 3 3-left foot -Foul Odor after Cleansing No -Other Dressing Epifix -Primary Dressing Covered/Secured with Dry Gauze,Dry Dry Gauze & Gauze & Roll Roll Gauze, Gauze,Secured Secured with with Tape Tape #1- L MEDIAL ANKLE -Foul Odor after Cleansing No -Other Dressing Epifix -Primary Dressing Covered/Secured with Dry Gauze,Dry Dry Gauze & Gauze & Roll Roll Gauze, Gauze,Secured Secured with with Tape Tape -Other Covering tubigrip LLE -Compression Wrap Stanton Wrap Treatment Response Procedure Tolerated Well Pain Scale: 0-10 Numeric Is Patient Pain Free? 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 All findings were discussed with the patient. All questions were answered to the patient's satisfaction. Excisional debridement down to including subcutaneous tissue, fascia and muscle to the left lower extremity full-thickness wound with a number 3 mm dermal curette and #15 blade without incident. Predebridement measurement was 0.8 x 0.8 x 0.1 cm. Postdebridement measurement is 0.9 x 1.0 x 0.2 cm. Epi cord 2.0 x 3.0 cm was applied to the left full-thickness ulceration with 100% use. 8 application. The graft site was free and clear of any infection. The wound/skin graft substitute was dressed with nonadherent bandage secured in place with Steri-Strips followed by bolster dressing as well as a double layer Tubigrip. Excisional debridement down to and including subcutaneous tissue to the sanguinous crust to the dorsal aspect of the first metatarsophalangeal joint of the left foot done without incident with a sterile pickup and 15 blade. Predebridement measurement was 0.5 x 1.7 x 0.1 cm. Postdebridement measurement was 0.6 x 1.8 x 0.1 cm. Educated the patient to keep the dressing clean dry and intact. Continue dietary supplements/Joon twice daily until follow-up. The patient will follow-up with Dr. Mazariegos in 1 week. (2) Non-pressure chronic ulcer of other part of left foot with fat layer exposed: CODE(S): L97.522 - Non-pressure chronic ulcer of other part of left foot with fat layer exposed (3) Other specified peripheral vascular diseases: CODE(S): I73.89 - Other specified peripheral vascular diseases
--- NOTE | 2024-08-10 14:44 | WC ---
PHOTO 08/10/24 LEFT MED ANKLE
--- NOTE | 2024-08-10 14:50 | WC ---
PHOTO 08/10/24 LEFT MED ANKLE
--- NOTE | 2024-08-10 14:51 | WC ---
PHOTO 08/10/24 LEFT FOOT
[2024-08-17 14:00] VITALS: BP 120/63; PULSE 80; RESP 22; TEMP 36.1; O2SAT 93; BMI 22.4
--- NOTE | 2024-08-17 15:08 | PCM.WC.PN ---
History of Present Illness Date of Service: 08/17/24 Chief Complaint: Left medial ankle ulcer History of Wound: Patient is a very pleasant 83 year old male with a left medial ankle ulcer that he has been seeing director revenue, Dr. Drew. Patient has a significant history for COPD that he sees Palliative care to help manage. He is on home O2. He also has a history of Prostate CA, Squamous carcinoma of left lung, HTN, anxiety and depression, AAA without rupture, CAD, coronary artery stent placement (multiple), CABG x 3, former smoker, PAD, PBH, and pulmonary embolism- on anticoagulants, and hyperlipidemia. He has had arterial studies in the past and had some vascular procedures (by Dr. Freeman) to his left leg. He denies hx of diabetes. His providers are all with [facility]. He has had this left medial ankle ulcer for 3 months. He has been placing Santyl covered with Hindman SAP. There has not been much improvement to this area. He states that he was referred to see us by [facility] and that Dr. Drew also suggested he get a second opinion. He is on a new medication that his states is an antibiotic but they are unsure of the name. He denies fever, chills, nausea or vomiting. He comes in today for further evaluation and treatment. Progress of Wound: Stable slow healing wound to the left ankle and great toe. Subjective Subjective Mr. Corley is a 84-year-old male presenting to the wound care center today follow-up evaluation of full-thickness wound to the medial ankle and first metatarsophalangeal joint of the left lower extremity. He left the dressing clean dry and intact. He states the graft stayed on all week. He elevates as instructed. He denies any pain to left lower extremity. He denies trauma. Denies constitutional symptoms. No other pedal complaints at this time. Objective Data Objective Data Vital Signs: Vital Signs Temp Pulse Resp BP Pulse Ox O2 Del Method O2 Flow Rate 97 F L 80 22 H 120/63 93 Nasal Cannula 5 08/17/24 14:00 08/17/24 14:00 08/17/24 14:08/17/24 14:00 08/17/24 14:00 08/17/24 14:00 08/17/24 14:00 Oxygen Flow Rate (L/min) 5 Oxygen Delivery Method Nasal Cannula Weight: 74.843 kg Body Mass Index (BMI) 22.4 Lab / Micro Data Micro: Microbiology 07/13/24 14:15 Ulcer, Decubitus - Left Foot Gram Stain - Final 07/13/24 14:15 Ulcer, Decubitus - Left Foot Wound Culture - Final Staphylococcus capitis 07/13/24 14:15 Ulcer, Decubitus - Left Foot Anaerobic Culture - Final No growth in 5 days. Physical Exam Narrative Vascular: DP and PT pulses are faintly palpable. CFT is brisk. No erythema appreciated. Neurological: Light touch intact. Patient does despond painful stimuli. Dermatological: Full-thickness wound to the dorsal aspect left foot first metatarsal phalangeal joint measuring 0.1 x 0.1 x 0.1 cm. Full-thickness wound to the medial ankle of the left lower extremity measuring 1.2 x 1.0 x 0.2 cm. Negative probe to bone. No erythema. Excisional debridement down to including subcutaneous tissue, fascia and muscle to the left lower extremity full-thickness wound with a number 3 mm dermal curette and #15 blade without incident. Predebridement measurement was 1.1 x 0.9 x 0.1 cm. Postdebridement measurement is 1.2 x 1.0 x 0.2 cm. Epi cord 2.0 x 3.0 cm was applied to the left full-thickness ulceration with 100% use. Ninth application. The graft site was free and clear of any infection. The wound/skin graft substitute was dressed with nonadherent bandage secured in place with Steri-Strips followed by bolster dressing as well as a double layer Tubigrip. Musculoskeletal: No pain to palpation to full-thickness wound to the left lower extremity medial ankle. No pain with calf pressure. Debridement Note Debridement Note Debridement Free Text: Excisional debridement down to including subcutaneous tissue, fascia and muscle to the left lower extremity full-thickness wound with a number 3 mm dermal curette and #15 blade without incident. Predebridement measurement was 1.1 x 0.9 x 0.1 cm. Postdebridement measurement is 1.2 x 1.0 x 0.2 cm. Epi cord 2.0 x 3.0 cm was applied to the left full-thickness ulceration with 100% use. Ninth application. The graft site was free and clear of any infection. The wound/skin graft substitute was dressed with nonadherent bandage secured in place with Steri-Strips followed by bolster dressing as well as a double layer Tubigrip. Post-Debridement Measurements and Additional Note: Post-Debridement Measurements/Treatment - Nurse 1 - General Ulcer Assessment Start: 08/03/24 13:56 Freq: Status: Active Protocol: MILENA Activity Type Activity Date Activity User E-sign Co-sign Detail Recorded Client Recorded Date Recorded By Document 08/03/24 13:57 TN [id number] 08/03/24 14:04 TN Document 08/10/24 13:57 [id number] 08/10/24 14:02 Document 08/17/24 14:00 TN [id number] 08/17/24 14:05 TN 08/03/24 08/10/24 08/17/24 13:57 13:57 14:00 - Today's Visit Information Type of service Follow-up Visit Follow-up Visit Follow-up Visit (Physician/IGNITION SPECIALIST (Physician/IGNITION SPECIALIST (Physician/IGNITION SPECIALIST ) ) ) Arrival Mode Ambulatory Wheelchair Ambulatory, Wheelchair Accompanied by Patient Identification Verified (Name & Yes Yes Yes ) Patient Requires Transmission-Based No Precautions Safety Precautions Fall Prevention Fall Prevention Height and Weight Body Mass Index (BMI) 22.4 22.4 22.4 BMI Classification Normal Normal Normal Vital Signs Temperature (97.8 F-99.1 F) 97 F L 96.7 F L 97 F L Temperature Source Temporal Temporal Temporal Pulse Rate (60-100) 65 72 80 Pulse Location Monitor Monitor Monitor Respiratory Rate (12-18) 18 16 22 H Respiratory rate source Observation Observation Monitor Pulse Oximetry 97 93 Oxygen Delivery Method Nasal Cannula Room Air Nasal Cannula O2 L/MIN (L/min) 3 5 Blood Pressure (90/60-120/80) 127/53 H 120/54 L 120/63 Blood Pressure Mean (mm Hg) 77 76 82 Source Monitor Monitor Monitor Position Sitting Sitting Semi-Fowlers Blood Pressure Location Right Arm Left Arm Right Arm History Since Last Visit- (Skip if this is Patient's initial visit) Have you changed medications since your No last visit? Any new allergies or adverse reactions No Had a fall/change in ADL's that may No increase risk of falls Signs or symptoms of abuse and/or No neglect since last visit Have you been in the hospital since your No last visit? Has dressing in place as prescribed Yes Yes Yes Has compression in place as prescribed Yes Yes Yes Has offloadiing in place as prescribed Yes N/A Yes Experienced any changes in pain level or Yes No Yes management Left Footwear Regular Shoe Regular Shoe Regular Shoe Right Footwear Regular Shoe Regular Shoe Regular Shoe Pain Scale: 0-10 Numeric Is Patient Pain Free? Yes Yes Yes WC - Nurse 1 - General Ulcer Measurement Start: 08/03/24 13:56 Freq: Status: Active Protocol: Activity Type Activity Date Activity User E-sign Co-sign Detail Recorded Client Recorded Date Recorded By Document 08/03/24 13:57 MT [id number] 08/03/24 14:04 MT Document 08/10/24 13:57 [id number] 08/10/24 14:02 Document 08/17/24 14:00 TN [id number] 08/17/24 14:05 MT 08/03/24 08/10/24 08/17/24 13:57 13:57 14:00 Wound Center Nurse 1 3-left foot -Current Size (cm) - Length 0.7 0.5 0.1 -Current Size (cm) - Width 2.0 2.0 0.1 -Current Size (cm) - Depth 0.1 0.1 0.1 -Total Square Cm 1.40 1.00 0.01 -Date of Last Picture (Recall this 08/10/24 field) -Photo Taken No Yes No -Epithelialization None Present -Tunneling No No No -Undermining/Tunneling No No No -Circular Undermining No No No -Exudate Amt Medium Small None Present -Exudate Type Purulent Yellow/Green -Wound Margin Flat & Intact Distinct, Flat & Intact Outline Attached -Granulation Amt Large (67-100%) Medium (34-66%) None Present (0 %) -Granulation Quality Pale,[place] Red -Slough/Fibrin Yes No -Necrosis Amt Small (1-33%) Medium (34-66%) -Necrotic Tissue Type Adherent Slough -Texture (Bell-wound Skin Appearance) Assessed Assessed Assessed -Moisture (Bell-wound Skin Appearance) Assessed Assessed Assessed -Color (Bell-wound Skin Appearance) Assessed Assessed Assessed -Temperature (Bell-wound Skin No Abnormality No Abnormality No Abnormality Appearance) (Pt Warm) (Pt Warm) (Pt Warm) -Tenderness on Palpation (Bell-wound No Yes No Skin Appearance) -Ulcer Cleansing Soap and Water Soap and Water Soap and Water -Foul Odor after Cleansing No No No -Anesthetic Used 4% Lidocaine 5% Lidocaine Solution Gel #1- L MEDIAL ANKLE -Current Size (cm) - Length 1 1.1 1.1 -Current Size (cm) - Width 1.5 1.0 1.1 -Current Size (cm) - Depth 0.2 0.6 0.2 -Total Square Cm 1.5 1.10 1.21 -Date of Last Picture (Recall this 08/10/24 field) -Photo Taken No Yes No -Epithelialization None Present -Tunneling No No No -Undermining/Tunneling No No No -Circular Undermining No No No -Change in Wound Grade/Stage No -Exudate Amt Medium Small -Exudate Type Purulent Purulent -Wound Margin Flat & Intact Distinct, Thickened & Outline Rolled Under Attached -Granulation Amt Large (67-100%) None Present (0 Small (1-33%) %) -Granulation Quality Pale,[place] Pale,[place] -Slough/Fibrin Yes -Necrosis Amt Medium (34-66%) Large (67-100%) Large (67-100%) -Necrotic Tissue Type Adherent Slough Adherent Slough Adherent Slough -Texture (Bell-wound Skin Appearance) Assessed Assessed Assessed -Moisture (Bell-wound Skin Appearance) Assessed Assessed Assessed -Color (Bell-wound Skin Appearance) Assessed Assessed Assessed -Temperature (Bell-wound Skin No Abnormality No Abnormality No Abnormality Appearance) (Pt Warm) (Pt Warm) (Pt Warm) -Tenderness on Palpation (Bell-wound No Yes No Skin Appearance) -Ulcer Cleansing Soap and Water Soap and Water Soap and Water -Foul Odor after Cleansing No No No -Anesthetic Used 4% Lidocaine 5% Lidocaine 5% Lidocaine Solution Gel Gel Lower Limb Edema Present No Left Calf (cm) 29.1 Left Ankle (cm) 24 WC - Nurse 2 - General Ulcer CM Notes Start: 08/03/24 13:56 Freq: Status: Active Protocol: Activity Type Activity Date Activity User E-sign Co-sign Detail Recorded Client Recorded Date Recorded By Document 08/03/24 14:12 SONNY [id number] 08/03/24 14:21 SONNY Edit Result 08/03/24 14:12 JF (1) 000 08/09/24 15:06 Document 08/10/24 14:05 [id number] 08/10/24 14:12 Document 08/17/24 14:14 [id number] 08/17/24 14:19 JF (1) #1- L MEDIAL ANKLE - Apply Skin Sub - 1st 25 sq cm - Legs => 1 08/03/24 08/10/24 08/17/24 14:12 14:05 14:14 Wound Center Nurse 2 3-left foot -Time 14:13 14:05 -Correct Patient Yes Yes Yes -Correct Side, Site, Position Yes Yes No -Correct Procedure Yes Yes No -Procedure Performed Yes Yes No -Type of Procedure Debridement Debridement -Clinical Debridement Subcutaneous Subcutaneous -Tissue Removed Subcutaneous Subcutaneous -Post Debridement (cm) - Length 0.7 0.6 0.1 -Post Debridement (cm) - Width 2.0 1.8 0.1 -Post Debridement (cm) - Depth 0.1 0.1 0.1 -Total Square (Post) (cm) 1.40 1.08 0.01 -Area of Debridement (cm) - Length 0.7 0.6 0.1 -Area of Debridement (cm) - Width 2.0 1.8 0.1 -Total Square (Area) (cm) 1.40 1.08 0.01 -Tunneling No No -Undermining/Tunneling No No -Circular Undermining No No -Wound/Ulcer Outcome Not Healed Not Healed Not Healed -Ulcer Cleansing Rinsed/ Rinsed/ Irrigated with Irrigated with Saline Saline -Foul Odor after Cleansing No No -Bioengineered Tissue No No -Bleeding Controlled with Pressure Pressure -Treatment Response Procedure Procedure Tolerated Well Tolerated Well -Offloading No No -Debridement - Subq, 1st 20sq cm Yes Yes #1- L MEDIAL ANKLE -Time 14:13 14:05 14:14 -Correct Patient Yes Yes Yes -Correct Side, Site, Position Yes Yes Yes -Correct Procedure Yes Yes Yes -Procedure Performed Yes Yes Yes -Type of Procedure Debridement Debridement Debridement -Clinical Debridement Bone Muscle / Fascia Muscle / Fascia -Tissue Removed Non-viable Muscle Muscle tissue -Post Debridement (cm) - Length 1 0.9 1.2 -Post Debridement (cm) - Width 1 1.0 1.0 -Post Debridement (cm) - Depth 0.4 0.2 0.2 -Total Square (Post) (cm) 1 0.90 1.20 -Area of Debridement (cm) - Length 1 0.9 1.2 -Area of Debridement (cm) - Width 1 1.0 1.0 -Total Square (Area) (cm) 1 0.90 1.20 -Tunneling No No No -Undermining/Tunneling No No No -Circular Undermining No No No -Wound/Ulcer Outcome Not Healed Not Healed Not Healed -Ulcer Cleansing Rinsed/ Rinsed/ Rinsed/ Irrigated with Irrigated with Irrigated with Saline Saline Saline -Foul Odor after Cleansing No No No -Bioengineered Tissue Yes Yes Yes -Type of Bioengineered Tissue Epicord Epicord Epicord -Expiration Date 10/31/28 10/31/28 11/30/28 -Product Lot Number [id number] -Percent Used 100 100 100 -Lot number of Saline Used [id number] -Bleeding Controlled with Pressure Pressure Pressure -Treatment Response Procedure Procedure Procedure Tolerated Well Tolerated Well Tolerated Well -Offloading No No No -Debridement - Muscle / Fascia, 1st No No 20sq cm -Debridement - Bone, 1st 20sq cm No -Apply Skin Sub - 1st 25 sq cm - Legs 1 1 1 -Epicord Application 1-4 (per sq cm) 6 6 6 Pain Scale: 0-10 Numeric Is Patient Pain Free? Yes Yes Yes WC - Nurse 3 - General Ulcer D/C NN Start: 08/03/24 13:56 Freq: Status: Active Protocol: Activity Type Activity Date Activity User E-sign Co-sign Detail Recorded Client Recorded Date Recorded By Document 08/03/24 14:38 MT [id number] 08/03/24 14:39 MT Document 08/10/24 14:23 DL [id number] 08/10/24 14:24 DL Document 08/17/24 14:29 ML [id number] 08/17/24 14:29 ML 08/03/24 08/10/24 08/17/24 14:38 14:23 14:29 Wound Care Center Nurse 3 3-left foot -Foul Odor after Cleansing No -Other Dressing Epifix STANTON -Primary Dressing Covered/Secured with Dry Gauze,Dry Dry Gauze & Dry Gauze,Dry Gauze & Roll Roll Gauze, Gauze & Roll Gauze,Secured Secured with Gauze,Secured with Tape Tape with Tape #1- L MEDIAL ANKLE -Foul Odor after Cleansing No -Other Dressing Epifix -Primary Dressing Covered/Secured with Dry Gauze,Dry Dry Gauze & Dry Gauze & Gauze & Roll Roll Gauze, Roll Gauze, Gauze,Secured Secured with Secured with with Tape Tape Tape -Other Covering tubigrip STANTON LLE -Compression Wrap Stanton Wrap Treatment Response Procedure Tolerated Well Pain Scale: 0-10 Numeric Is Patient Pain Free? 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 All findings were discussed with the patient. All questions were answered to the patient's satisfaction. Excisional debridement down to including subcutaneous tissue, fascia and muscle to the left lower extremity full-thickness wound with a number 3 mm dermal curette and #15 blade without incident. Predebridement measurement was 1.1 x 0.9 x 0.1 cm. Postdebridement measurement is 1.2 x 1.0 x 0.2 cm. Epi cord 2.0 x 3.0 cm was applied to the left full-thickness ulceration with 100% use. Ninth application. The graft site was free and clear of any infection. The wound/skin graft substitute was dressed with nonadherent bandage secured in place with Steri-Strips followed by bolster dressing as well as a double layer Tubigrip. Educated the patient to keep the dressing clean dry and intact. Continue dietary supplements/Joon twice daily until follow-up. The patient will follow-up with Dr. Mazariegos in 1 week. (2) Non-pressure chronic ulcer of other part of left foot with fat layer exposed: CODE(S): L97.522 - Non-pressure chronic ulcer of other part of left foot with fat layer exposed (3) Other specified peripheral vascular diseases: CODE(S): I73.89 - Other specified peripheral vascular diseases
[2024-08-24 14:21] VITALS: BP 123/53; PULSE 71; RESP 20; TEMP 36; BMI 22.4
--- NOTE | 2024-08-24 15:41 | PN.PCM_ITS ---
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 Drew. Patient has a significant history for COPD that he sees Palliative care to help manage. He is on home O2. He also has a history of Prostate CA, Squamous carcinoma of left lung, HTN, anxiety and depression, AAA without rupture, CAD, coronary artery stent placement (multiple), CABG x 3, former smoker, PAD, PBH, and pulmonary embolism- on anticoagulants, and hyperlipidemia. He has had arterial studies in the past and had some vascular procedures (by Dr. Freeman) to his left leg. He denies hx of diabetes. His providers are all with [facility]. He has had this left medial ankle ulcer for 3 months. He has been placing Santyl covered with [place] SAP. There has not been much improvement to this area. He states that he was referred to see us by [facility] and that Dr. Drew also suggested he get a second opinion. He is on a new medication that his states is an antibiotic but they are unsure of the name. He denies fever, chills, nausea or vomiting. He comes in today for further evaluation and treatment. Progress of Wound: Stable slow healing wound to the left ankle and great toe. Subjective Subjective Patient is a 84-year-old male presenting to wound care center today for follow- up evaluation of left foot medial ankle ulceration and first metatarsophalangeal joint dorsal ulceration. Patient has been compliant with dressing changes and has left the ankle dressing clean dry and intact has been changing the great toe wound as ordered. He is not elevating as much as he should and sits at the kitchen table throughout the day. He was unsure about elevating when educated. He denies any trauma or falls. Denies constitutional symptoms. No other pedal complaints at this time. Objective Data Objective Data Vital Signs: Vital Signs Temp Pulse Resp BP Pulse Ox O2 Del Method O2 Flow Rate 96.8 F L 71 20 H 123/53 H 93 Nasal Cannula 4 08/24/24 14:21 08/24/24 14:21 08/24/24 14:21 08/24/24 14:21 08/17/24 14:00 08/24/24 14:21 08/24/24 14:21 FiO2 95 08/24/24 14:21 Oxygen Flow Rate (L/min) 4 Oxygen Delivery Method Nasal Cannula Weight: 74.843 kg Body Mass Index (BMI) 22.4 Physical Exam Narrative Vascular: DP and PT pulses are faintly palpable. CFT is brisk. No erythema appreciated. Neurological: Light touch intact. Patient does despond painful stimuli. Dermatological: Full-thickness wound to the dorsal aspect left foot first metatarsal phalangeal joint measuring 0.5 x 1.7 x 0.1 cm. Full-thickness wound to the medial ankle of the left lower extremity measuring 0.8 x 1.0 x 0.3 cm. Negative probe to bone. No erythema. Excisional debridement down to including subcutaneous tissue to the left lower extremity, lateral ankle, full-thickness wound with a number 3 mm dermal curette and #15 blade without incident. Predebridement measurement was 0.7 x 0.9 x 0.2 cm. Postdebridement measurement is 0.8 x 1.0 x 0.3 cm. Epi cord 2.0 x 3.0 cm was applied to the left full-thickness ulceration with 100% use. 10th application. The graft site was free and clear of any infection. The wound/skin graft substitute was dressed with nonadherent bandage secured in place with Steri-Strips followed by bolster dressing as well as a double layer Tubigrip. Excisional debridement down to including subcutaneous tissue to left lower extremity first metatarsal phalangeal joint dorsally with a #3 minimally dermal curette done without incident. Predebridement measurement was 0.4 x 1.5 x 0.1 cm. Postdebridement measurement is 0.5 x 1.7 x 0.1 cm. Musculoskeletal: No pain to palpation to full-thickness wound to the left lower extremity medial ankle. No pain with calf pressure. Debridement Note Debridement Note Debridement Free Text: Excisional debridement down to including subcutaneous tissue to the left lower extremity, lateral ankle, full-thickness wound with a number 3 mm dermal curette and #15 blade without incident. Predebridement ry urement was 0.7 x 0.9 x 0.2 cm. Postdebridement measurement is 0.8 x 1.0 x 0.3 cm. Epi cord 2.0 x 3.0 cm was applied to the left full-thickness ulceration with 100% use. 10th application. The graft site was free and clear of any infection. The wound/skin graft substitute was dressed with nonadherent bandage secured in place with Steri-Strips followed by bolster dressing as well as a double layer Tubigrip. Excisional debridement down to including subcutaneous tissue to left lower extremity first metatarsal phalangeal joint dorsally with a #3 minimally dermal curette done without incident. Predebridement measurement was 0.4 x 1.5 x 0.1 cm. Postdebridement measurement is 0.5 x 1.7 x 0.1 cm. Post-Debridement Measurements and Additional Note: Post-Debridement Measurements/Treatment - Nurse 1 - General Ulcer Assessment Start: 08/03/24 13:56 Freq: Status: Active Protocol: MILENA Activity Type Activity Date Activity User E-sign Co-sign Detail Recorded Client Recorded Date Recorded By Document 08/03/24 13:57 MT [id number] 08/03/24 14:04 MT Document 08/10/24 13:57 [id number] 08/10/24 14:02 Document 08/17/24 14:00 MT [id number] 08/17/24 14:05 MT Document 08/24/24 14:21 KW [id number] 08/24/24 14:32 KW 08/03/24 08/10/24 08/17/24 13:57 13:57 14:00 - Today's Visit Information Type of service Follow-up Visit Follow-up Visit Follow-up Visit (Physician/COLLAR TURNER OPERATOR (Physician/COLLAR TURNER OPERATOR (Physician/COLLAR TURNER OPERATOR ) ) ) Arrival Mode Ambulatory Wheelchair Ambulatory, Wheelchair Accompanied by Patient Identification Verified (Name & Yes Yes Yes ) Patient Requires Transmission-Based No Precautions Safety Precautions Fall Prevention Fall Prevention Height and Weight Body Mass Index (BMI) 22.4 22.4 22.4 BMI Classification Normal Normal Normal Vital Signs Temperature (97.8 F-99.1 F) 97 F L 96.7 F L 97 F L Temperature Source Temporal Temporal Temporal Pulse Rate (60-100) 65 72 80 Pulse Location Monitor Monitor Monitor Respiratory Rate (12-18) 18 16 22 H Respiratory rate source Observation Observation Monitor Pulse Oximetry 97 93 Oxygen Delivery Method Nasal Cannula Room Air Nasal Cannula O2 L/MIN (L/min) 3 5 FIO2 % Blood Pressure (90/60-120/80) 127/53 H 120/54 L 120/63 Blood Pressure Mean (mm Hg) 77 76 82 Source Monitor Monitor Monitor Position Sitting Sitting Semi-Fowlers Blood Pressure Location Right Arm Left Arm Right Arm History Since Last Visit- (Skip if this is Patient's initial visit) Have you changed medications since your No last visit? Any new allergies or adverse reactions No Had a fall/change in ADL's that may No increase risk of falls Signs or symptoms of abuse and/or No neglect since last visit Have you been in the hospital since your No last visit? Has dressing in place as prescribed Yes Yes Yes Has compression in place as prescribed Yes Yes Yes Has offloadiing in place as prescribed Yes N/A Yes Experienced any changes in pain level or Yes No Yes management Left Footwear Regular Shoe Regular Shoe Regular Shoe Right Footwear Regular Shoe Regular Shoe Regular Shoe Pain Scale: 0-10 Numeric Is Patient Pain Free? Yes Yes Yes 08/24/24 14:21 WC - Today's Visit Information Type of service Follow-up Visit (Physician/COLLAR TURNER OPERATOR ) Arrival Mode Wheelchair Accompanied by Patient Identification Verified (Name & Yes ) Patient Requires Transmission-Based Precautions Safety Precautions Height and Weight Body Mass Index (BMI) 22.4 BMI Classification Normal Vital Signs Temperature (97.8 F-99.1 F) 96.8 F L Temperature Source Temporal Pulse Rate (60-100) 71 Pulse Location Monitor Respiratory Rate (12-18) 20 H Respiratory rate source Observation Pulse Oximetry Oxygen Delivery Method Nasal Cannula O2 L/MIN (L/min) 4 FIO2 % 95 Blood Pressure (90/60-120/80) 123/53 H Blood Pressure Mean (mm Hg) 76 Source Monitor Position Sitting Blood Pressure Location Right Arm History Since Last Visit- (Skip if this is Patient's initial visit) Have you changed medications since your No last visit? Any new allergies or adverse reactions No Had a fall/change in ADL's that may No increase risk of falls Signs or symptoms of abuse and/or No neglect since last visit Have you been in the hospital since your No last visit? Has dressing in place as prescribed Yes Has compression in place as prescribed Yes Has offloadiing in place as prescribed Yes Experienced any changes in pain level or No management Left Footwear Surgical Shoe with pressure relief insole Right Footwear Regular Shoe Pain Scale: 0-10 Numeric Is Patient Pain Free? Yes WC - Nurse 1 - General Ulcer Measurement Start: 08/03/24 13:56 Freq: Status: Active Protocol: Activity Type Activity Date Activity User E-sign Co-sign Detail Recorded Client Recorded Date Recorded By Document 08/03/24 13:57 MT [id number] 08/03/24 14:04 NE Document 08/10/24 13:57 [id number] 08/10/24 14:02 Document 08/17/24 14:00 NE [id number] 08/17/24 14:05 MT Document 08/24/24 14:21 KW [id number] 08/24/24 14:32 KW 08/03/24 08/10/24 08/17/24 13:57 13:57 14:00 Wound Center Nurse 1 3-left foot -Current Size (cm) - Length 0.7 0.5 0.1 -Current Size (cm) - Width 2.0 2.0 0.1 -Current Size (cm) - Depth 0.1 0.1 0.1 -Total Square Cm 1.40 1.00 0.01 -Date of Last Picture (Recall this 08/10/24 field) -Photo Taken No Yes No -Epithelialization None Present -Tunneling No No No -Undermining/Tunneling No No No -Circular Undermining No No No -Exudate Amt Medium Small None Present -Exudate Type Purulent Yellow/Green -Wound Margin Flat & Intact Distinct, Flat & Intact Outline Attached -Granulation Amt Large (67-100%) Medium (34-66%) None Present (0 %) -Granulation Quality Pale,[place] Red -Slough/Fibrin Yes No -Necrosis Amt Small (1-33%) Medium (34-66%) -Necrotic Tissue Type Adherent Slough -Texture (Bell-wound Skin Appearance) Assessed Assessed Assessed -Moisture (Bell-wound Skin Appearance) Assessed Assessed Assessed -Color (Bell-wound Skin Appearance) Assessed Assessed Assessed -Temperature (Bell-wound Skin No Abnormality No Abnormality No Abnormality Appearance) (Pt Warm) (Pt Warm) (Pt Warm) -Tenderness on Palpation (Bell-wound No Yes No Skin Appearance) -Ulcer Cleansing Soap and Water Soap and Water Soap and Water -Foul Odor after Cleansing No No No -Anesthetic Used 4% Lidocaine 5% Lidocaine Solution Gel #1- L MEDIAL ANKLE -Current Size (cm) - Length 1 1.1 1.1 -Current Size (cm) - Width 1.5 1.0 1.1 -Current Size (cm) - Depth 0.2 0.6 0.2 -Total Square Cm 1.5 1.10 1.21 -Date of Last Picture (Recall this 08/10/24 field) -Photo Taken No Yes No -Epithelialization None Present -Tunneling No No No -Undermining/Tunneling No No No -Circular Undermining No No No -Change in Wound Grade/Stage No -Exudate Amt Medium Small -Exudate Type Purulent Purulent -Wound Margin Flat & Intact Distinct, Thickened & Outline Rolled Under Attached -Granulation Amt Large (67-100%) None Present (0 Small (1-33%) %) -Granulation Quality Pale,[place] Pale,[place] -Slough/Fibrin Yes -Necrosis Amt Medium (34-66%) Large (67-100%) Large (67-100%) -Necrotic Tissue Type Adherent Slough Adherent Slough Adherent Slough -Texture (Bell-wound Skin Appearance) Assessed Assessed Assessed -Moisture (Bell-wound Skin Appearance) Assessed Assessed Assessed -Color (Bell-wound Skin Appearance) Assessed Assessed Assessed -Temperature (Bell-wound Skin No Abnormality No Abnormality No Abnormality Appearance) (Pt Warm) (Pt Warm) (Pt Warm) -Tenderness on Palpation (Bell-wound No Yes No Skin Appearance) -Ulcer Cleansing Soap and Water Soap and Water Soap and Water -Foul Odor after Cleansing No No No -Anesthetic Used 4% Lidocaine 5% Lidocaine 5% Lidocaine Solution Gel Gel Lower Limb Edema Present No Left Calf (cm) 29.1 Left Ankle (cm) 24 08/24/24 14:21 Wound Center Nurse 1 3-left foot -Current Size (cm) - Length 0.4 -Current Size (cm) - Width 2 -Current Size (cm) - Depth 0.2 -Total Square Cm 0.8 -Date of Last Picture (Recall this 08/24/24 field) -Photo Taken -Epithelialization -Tunneling -Undermining/Tunneling -Circular Undermining -Exudate Amt Medium -Exudate Type Serosanguineous -Wound Margin Thickened & Rolled Under -Granulation Amt Small (1-33%) -Granulation Quality [place] -Slough/Fibrin -Necrosis Amt Large (67-100%) -Necrotic Tissue Type Adherent Slough -Texture (Bell-wound Skin Appearance) Assessed -Moisture (Bell-wound Skin Appearance) Assessed -Color (Bell-wound Skin Appearance) Assessed, Erythema -Temperature (Bell-wound Skin No Abnormality Appearance) (Pt Warm) -Tenderness on Palpation (Bell-wound No Skin Appearance) -Ulcer Cleansing Wound Cleanser -Foul Odor after Cleansing No -Anesthetic Used 4% Lidocaine Solution #1- L MEDIAL ANKLE -Current Size (cm) - Length 1 -Current Size (cm) - Width 1 -Current Size (cm) - Depth 0.1 -Total Square Cm 1 -Date of Last Picture (Recall this 08/24/24 field) -Photo Taken -Epithelialization -Tunneling -Undermining/Tunneling -Circular Undermining -Change in Wound Grade/Stage -Exudate Amt Small -Exudate Type Serosanguineous -Wound Margin Distinct, Outline Attached -Granulation Amt -Granulation Quality -Slough/Fibrin -Necrosis Amt -Necrotic Tissue Type -Texture (Bell-wound Skin Appearance) Assessed -Moisture (Bell-wound Skin Appearance) Assessed -Color (Bell-wound Skin Appearance) Assessed -Temperature (Bell-wound Skin No Abnormality Appearance) (Pt Warm) -Tenderness on Palpation (Bell-wound No Skin Appearance) -Ulcer Cleansing Soap and Water -Foul Odor after Cleansing -Anesthetic Used 4% Lidocaine Solution Lower Limb Edema Present Left Calf (cm) Left Ankle (cm) WC - Nurse 2 - General Ulcer CM Notes Start: 08/03/24 13:56 Freq: Status: Active Protocol: Activity Type Activity Date Activity User E-sign Co-sign Detail Recorded Client Recorded Date Recorded By Document 08/03/24 14:12 JF [id number] 08/03/24 14:21 JF Edit Result 08/03/24 14:12 JF (1) 000 08/09/24 15:06 JF Document 08/10/24 14:05 JF [id number] 08/10/24 14:12 JF Document 08/17/24 14:14 JF [id number] 08/17/24 14:19 JF Document 08/24/24 14:53 DS [id number] 08/24/24 14:57 DS Edit Result 08/24/24 14:53 DS (2) [id number] 08/24/24 14:59 DS Edit Result 08/24/24 14:53 DS (3) [id number] 08/24/24 15:38 DS (1) #1- L MEDIAL ANKLE - Apply Skin Sub - 1st 25 sq cm - Legs => 1 (2) 3-left foot - Debridement - Subq, 1st 20sq cm No => Yes (3) #1- L MEDIAL ANKLE - Bioengineered Tissue No => Yes 08/03/24 08/10/24 08/17/24 14:12 14:05 14:14 Wound Center Nurse 2 3-left foot -Time 14:13 14:05 -Correct Patient Yes Yes Yes -Correct Side, Site, Position Yes Yes No -Correct Procedure Yes Yes No -Procedure Performed Yes Yes No -Type of Procedure Debridement Debridement -Clinical Debridement Subcutaneous Subcutaneous -Tissue Removed Subcutaneous Subcutaneous -Post Debridement (cm) - Length 0.7 0.6 0.1 -Post Debridement (cm) - Width 2.0 1.8 0.1 -Post Debridement (cm) - Depth 0.1 0.1 0.1 -Total Square (Post) (cm) 1.40 1.08 0.01 -Area of Debridement (cm) - Length 0.7 0.6 0.1 -Area of Debridement (cm) - Width 2.0 1.8 0.1 -Total Square (Area) (cm) 1.40 1.08 0.01 -Tunneling No No -Undermining/Tunneling No No -Circular Undermining No No -Wound/Ulcer Outcome Not Healed Not Healed Not Healed -Ulcer Cleansing Rinsed/ Rinsed/ Irrigated with Irrigated with Saline Saline -Foul Odor after Cleansing No No -Bioengineered Tissue No No -Bleeding Controlled with Pressure Pressure -Treatment Response Procedure Procedure Tolerated Well Tolerated Well -Offloading No No -Debridement - Subq, 1st 20sq cm Yes Yes #1- L MEDIAL ANKLE -Time 14:13 14:05 14:14 -Correct Patient Yes Yes Yes -Correct Side, Site, Position Yes Yes Yes -Correct Procedure Yes Yes Yes -Procedure Performed Yes Yes Yes -Type of Procedure Debridement Debridement Debridement -Clinical Debridement Bone Muscle / Fascia Muscle / Fascia -Tissue Removed Non-viable Muscle Muscle tissue -Post Debridement (cm) - Length 1 0.9 1.2 -Post Debridement (cm) - Width 1 1.0 1.0 -Post Debridement (cm) - Depth 0.4 0.2 0.2 -Total Square (Post) (cm) 1 0.90 1.20 -Area of Debridement (cm) - Length 1 0.9 1.2 -Area of Debridement (cm) - Width 1 1.0 1.0 -Total Square (Area) (cm) 1 0.90 1.20 -Tunneling No No No -Undermining/Tunneling No No No -Circular Undermining No No No -Wound/Ulcer Outcome Not Healed Not Healed Not Healed -Ulcer Cleansing Rinsed/ Rinsed/ Rinsed/ Irrigated with Irrigated with Irrigated with Saline Saline Saline -Foul Odor after Cleansing No No No -Bioengineered Tissue Yes Yes Yes -Type of Bioengineered Tissue Epicord Epicord Epicord -Expiration Date 10/31/28 10/31/28 11/30/28 -Product Lot Number [id number] 002 -Percent Used 100 100 100 -Lot number of Saline Used [id number] -Bleeding Controlled with Pressure Pressure Pressure -Treatment Response Procedure Procedure Procedure Tolerated Well Tolerated Well Tolerated Well -Offloading No No No -Debridement - Subq, 1st 20sq cm -Debridement - Muscle / Fascia, 1st No No 20sq cm -Debridement - Bone, 1st 20sq cm No -Apply Skin Sub - 1st 25 sq cm - Legs 1 1 1 -Epicord Application 1-4 (per sq cm) 6 6 6 Pain Scale: 0-10 Numeric Is Patient Pain Free? Yes Yes Yes 08/24/24 14:53 Wound Center Nurse 2 3-left foot -Time 14:54 -Correct Patient Yes -Correct Side, Site, Position Yes -Correct Procedure Yes -Procedure Performed Yes -Type of Procedure Debridement -Clinical Debridement Subcutaneous -Tissue Removed Subcutaneous -Post Debridement (cm) - Length 0.5 -Post Debridement (cm) - Width 1.7 -Post Debridement (cm) - Depth 0.1 -Total Square (Post) (cm) 0.85 -Area of Debridement (cm) - Length 0.5 -Area of Debridement (cm) - Width 1.7 -Total Square (Area) (cm) 0.85 -Tunneling No -Undermining/Tunneling No -Circular Undermining No -Wound/Ulcer Outcome Not Healed -Ulcer Cleansing Rinsed/ Irrigated with Saline -Foul Odor after Cleansing No -Bioengineered Tissue No -Bleeding Controlled with Pressure -Treatment Response Procedure Tolerated Well -Offloading -Debridement - Subq, 1st 20sq cm Yes #1- L MEDIAL ANKLE -Time 14:54 -Correct Patient Yes -Correct Side, Site, Position Yes -Correct Procedure Yes -Procedure Performed Yes -Type of Procedure Debridement -Clinical Debridement Subcutaneous -Tissue Removed Subcutaneous -Post Debridement (cm) - Length 0.8 -Post Debridement (cm) - Width 1.0 -Post Debridement (cm) - Depth 0.3 -Total Square (Post) (cm) 0.80 -Area of Debridement (cm) - Length 0.5 -Area of Debridement (cm) - Width 1.0 -Total Square (Area) (cm) 0.50 -Tunneling No -Undermining/Tunneling No -Circular Undermining No -Wound/Ulcer Outcome Not Healed -Ulcer Cleansing Rinsed/ Irrigated with Saline -Foul Odor after Cleansing No -Bioengineered Tissue Yes -Type of Bioengineered Tissue Epicord -Expiration Date 12/31/28 -Product Lot Number [id number] -Percent Used 100 -Lot number of Saline Used [id number] -Bleeding Controlled with Pressure -Treatment Response Procedure Tolerated Well -Offloading -Debridement - Subq, 1st 20sq cm No -Debridement - Muscle / Fascia, 1st 20sq cm -Debridement - Bone, 1st 20sq cm -Apply Skin Sub - 1st 25 sq cm - Legs 1 -Epicord Application 1-4 (per sq cm) 6 Pain Scale: 0-10 Numeric Is Patient Pain Free? Yes WC - Nurse 3 - General Ulcer D/C NN Start: 08/03/24 13:56 Freq: Status: Active Protocol: Activity Type Activity Date Activity User E-sign Co-sign Detail Recorded Client Recorded Date Recorded By Document 08/03/24 14:38 MT [id number] 08/03/24 14:39 MT Document 08/10/24 14:23 DL [id number] 08/10/24 14:24 DL Document 08/17/24 14:29 ML [id number] 08/17/24 14:29 ML Document 08/24/24 15:06 KW [id number] 08/24/24 15:07 KW Edit Result 08/24/24 15:06 KW (1) [id number] 08/24/24 15:13 KW (1) 3-left foot - Primary Dressing Applied AMD Dressing 4x4 => AMD Dressing 4x4,C => Hydrogel - Hydrogel => 1 08/03/24 08/10/24 08/17/24 14:38 14:23 14:29 Wound Care Center Nurse 3 3-left foot -Foul Odor after Cleansing No -Primary Dressing Applied -Other Dressing Epifix STANTON -Primary Dressing Covered/Secured with Dry Gauze,Dry Dry Gauze & Dry Gauze,Dry Gauze & Roll Roll Gauze, Gauze & Roll Gauze,Secured Secured with Gauze,Secured with Tape Tape with Tape -AMD Dressing 4x4 -Hydrogel #1- L MEDIAL ANKLE -Foul Odor after Cleansing No -Other Dressing Epifix -Primary Dressing Covered/Secured with Dry Gauze,Dry Dry Gauze & Dry Gauze & Gauze & Roll Roll Gauze, Roll Gauze, Gauze,Secured Secured with Secured with with Tape Tape Tape -Other Covering tubigrip STANTON LLE -Compression Wrap Stanton Wrap -Other Treatment Response Procedure Tolerated Well Pain Scale: 0-10 Numeric Is Patient Pain Free? Yes Yes Yes WC - Visit Discharge Discharge Condition Stable Stable Ambulatory Status Ambulatory Wheelchair Transportation Private Auto Private Auto Medication Reconcilliation completed & No provided to patient/care provider Clinical Summary of Care Provided Yes 08/24/24 15:06 Wound Care Center Nurse 3 3-left foot -Foul Odor after Cleansing -Primary Dressing Applied AMD Dressing 4x4,C Hydrogel -Other Dressing hydrogel -Primary Dressing Covered/Secured with Dry Gauze & Roll Gauze, Secured with Tape -AMD Dressing 4x4 1 -Hydrogel 1 #1- L MEDIAL ANKLE -Foul Odor after Cleansing -Other Dressing -Primary Dressing Covered/Secured with Dry Gauze -Other Covering LLE -Compression Wrap [place] Wrap -Other 4in and 6 in Treatment Response Pain Scale: 0-10 Numeric Is Patient Pain Free? 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 All findings were discussed with the patient. All questions were answered to the patient's satisfaction. Excisional debridement down to including subcutaneous tissue to the left lower extremity, lateral ankle, full-thickness wound with a number 3 mm dermal curette and #15 blade without incident. Predebridement measurement was 0.7 x 0.9 x 0.2 cm. Postdebridement measurement is 0.8 x 1.0 x 0.3 cm. Epi cord 2.0 x 3.0 cm was applied to the left full-thickness ulceration with 100% use. 10th application. The graft site was free and clear of any infection. The wound/skin graft substitute was dressed with nonadherent bandage secured in place with Steri-Strips followed by bolster dressing as well as a double layer Tubigrip. Excisional debridement down to including subcutaneous tissue to left lower extremity first metatarsal phalangeal joint dorsally with a #3 minimally dermal curette done without incident. Predebridement measurement was 0.4 x 1.5 x 0.1 cm. Postdebridement measurement is 0.5 x 1.7 x 0.1 cm. Educated the patient on the importance of elevation to the bilateral lower extremity whenever he is at rest. He was understanding this. Educated the patient to keep the dressing clean dry and intact. Continue dietary supplements/Joon twice daily until follow-up. The patient will follow-up with Dr. Mazariegos in 1 week. (2) Non-pressure chronic ulcer of other part of left foot with fat layer exposed: CODE(S): L97.522 - Non-pressure chronic ulcer of other part of left foot with fat layer exposed (3) Other specified peripheral vascular diseases: CODE(S): I73.89 - Other specified peripheral vascular diseases
--- NOTE | 2024-08-25 11:06 | WC ---
PHOTO 08/24/24 LEFT FOOT
--- NOTE | 2024-08-25 11:08 | WC ---
PHOTO 08/24/24 LEFT [facility] ANKLE
== END 2024-08-29 23:59 | disposition home or self-care (01) ==
LOC: WC 14:00
PROVIDERS: PCP Family Medicine; Referring Provider Podiatrist Foot & Ankle Surgery; Visit Provider Podiatrist Foot & Ankle Surgery
DX: L97.325 Non-pressure chronic ulcer of left ankle with muscle involvement without evidence of necrosis (principal); L97.522 Non-pressure chronic ulcer of other part of left foot with fat layer exposed; J44.9 Chronic obstructive pulmonary disease, unspecified; E78.5 Hyperlipidemia, unspecified; Z87.891 Personal history of nicotine dependence; Z95.5 Presence of coronary angioplasty implant and graft; F41.9 Anxiety disorder, unspecified; I25.10 Atherosclerotic heart disease of native coronary artery without angina pectoris; Z51.5 Encounter for palliative care; I10 Essential (primary) hypertension; I73.89 Other specified peripheral vascular diseases; Z95.1 Presence of aortocoronary bypass graft; Z99.81 Dependence on supplemental oxygen; Z86.711 Personal history of pulmonary embolism; Z79.01 Long term (current) use of anticoagulants; Z85.118 Personal history of other malignant neoplasm of bronchus and lung; Z85.46 Personal history of malignant neoplasm of prostate
CPT/HCPCS: 11042; 15271; Q4187

== ENCOUNTER 2024-09-17 10:49 | Emergency (ER) | payer MEDICARE, BC, SELFPAY ==
[2024-09-17 10:50] VITALS: BP 109/68; PULSE 72; RESP 18; TEMP 37; O2SAT 96
[2024-09-17 11:06] VITALS: BMI 22.4
[2024-09-17 11:15] LABS: Hematocrit 32.2 % (40-54); Hemoglobin 9.8 g/dL (13.0-16.5); Mean Corp Hgb Conc 30.4 g/dL (32-36); Mean Corpuscular Volume 88.7 fL (80-94); Mean Platelet Vol. 8.7 fl (6.2-12.0); Platelet Count 182 K/mm3 (150-450); RBC Distribution Width CV 16.3 % (11.6-14.6); RBC Distribution Width SD 53.1 fl (35.1-43.9); Red Blood Count 3.63 M/mm3 (4.6-6.2); White Blood Count 7.4 K/mm3 (4.4-11.0)
--- NOTE | 2024-09-17 11:18 | EDS_ITS ---
HPI HPI - GI History of Present Illness Chief Complaint: GI Bleed Informant: patient and spouse/S.O. Nausea/Vomiting/Emesis GI Symptom: Negative for Nausea or Vomiting Diarrhea/Melena/Hematochezia GI Symptom: Positive for Hematochezia; Negative for Diarrhea or Melena Onset: Days Severity: Mild Associated Symptoms Associated Symptoms: Negative for Dysuria, Frequency or Hematuria Narrative Narrative: 52-year-old male history of COPD, CAD, prostate cancer, anemia, prior pulmonary emboli for which he is on blood thinner Eliquis. States since Thursday he is in intermittent rectal bleeding. He initially was constipated he has been straining to have bowel movements. Also states he has had some hemoptysis with no chest pain. No shortness of breath. No fever. Of note the patient did have a GI bleed last September and was admitted to the hospital. Had upper and lower endoscopy done at that time. Prior similar symptoms: Yes Recent Illness/Hospitalization: No PFSH PFSH Medical History Chronic respiratory failure with hypoxia and hypercapnia COPD exacerbation Angina at rest Pulmonary embolus COVID Fecal occult blood test positive Abnormal chest CT COPD with acute exacerbation Squamous cell carcinoma of left lung Lung mass Depression Myocardial infarct Coronary artery disease Pulmonary neoplasm Wears glasses Wears dentures Cancer Anxiety Abrasion History of steroid therapy Prostate disease High cholesterol Injury of back Syncope History of weight loss Former smoker COPD (chronic obstructive pulmonary disease) On home oxygen therapy Shortness of breath on exertion Chronic cough History of stress test Cardiology follow-up encounter Chest pain No pertinent family history 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 Nocturnal hypoxemia Chronic hypoxemic respiratory failure Bronchiectasis Prostate CA CAD (coronary artery disease) HLD (hyperlipidemia) Benign essential HTN Home Medications ?Medication ?Instructions ?Recorded ?Last Taken ?Type nitroglycerin 0.4 mg sublingual 0.4 mg sublingual Q5M PRN Chest 12/29/14 1 Week Ago History tablet Pain ~07/02/20 fluticasone propionate 230 2 puff inhalation BID breat nicho 08/07/22 06/03/24 History mcg-salmeterol 21 mcg/actuation HFA inhaler (Advair HFA) atorvastatin 40 mg tablet 40 mg PO QHS cholesterol 06/02/24 History duloxetine 30 mg capsule,delayed 30 mg PO QPM DEPRESSI ON 03/25/23 06/02/24 History release tamsulosin 0.4 mg capsule 0.4 mg PO QPM BLADDER/ PROST ATE 03/25/23 06/02/24 History tiotropium bromide 2.5 2 puff inhalation DAILY copd 03/25/23 06/03/24 History mcg/actuation mist for inhalation (Spiriva Respimat) ezetimibe 10 mg tablet 10 mg PO DAILY cholesterol 0 09/28/23 06/02/24 History albuterol sulfate 90 mcg/actuation 2 puff inhalation Q 4H PRN wheezing 02/19/24 Unknown History aerosol inhaler aspirin 81 mg tablet,delayed 81 mg PO DAILY heart 01/3106/02/24 History release (Enteric Coated Aspirin) oxycodone 5 mg tablet 5 mg PO Q4H PRN chronic pain 02/21/24 06/03/24 History ondansetron 4 mg disintegrating 4 mg PO DAILY PRN naus ea and 03/30/24 05/29/24 History tablet vomiting roflumilast 500 mcg tablet 500 mcg PO DAILY 03/30/24 0 06/03/24 History collagenase clostridium histo. 250 1 applic topical DA KAREN 05/22/24 05/21/24 History unit/gram topical ointment (Santyl) guaifenesin 600 mg tablet, 1,200 mg PO BID PRN cough 0 05/22/24 06/03/24 History extended release 12 hr (Mucinex) metoprolol tartrate 50 mg tablet 50 mg PO BID #60 tabs 05/24/24 06/03/24 Rx furosemide 20 mg tablet (Lasix) 20 mg PO DAILY PRN chris ght gain 30 06/05/24 05/21/24 Rx days #0 tabs lorazepam 1 mg tablet 1 mg PO TID PRN anxiety 30 d ays #0 06/05/24 06/02/24 Rx tabs sulfamethoxazole 800 1 tab PO BID 2 weeks #28 tab s 06/15/24 Unknown Rx mg-trimethoprim 160 mg tablet (Bactrim DS) Allergy/AdvReac Type Severity Reaction Status Date / Time isosorbide (From Imdur) Allergy Other-patient Verified 09/17/24 10:53 blacks out Family History Mother Cancer Father Heart disease COPD (chronic obstructive pulmonary disease) Surgical History Hx of pneumonectomy Hx of CABG Hx of CABG Hx of heart artery stent Hx of transurethral resection of prostate Social History household members: spouse Smoking Status: Former smoker Tobacco: How many years used: 45 Electronic Cigarette Use: not used how long ago did patient quit smokin, second hand exposure: Yes alcohol intake: never substance use type: does not use ROS ROS ED ROS Narrative Rectal bleeding. Bright red blood. Intermittent hemoptysis. No chest pain. No shortness of breath. No abdominal pain. Constitutional Constitutional ED: Denies chills or fever(s) ENT ENT ED: Denies ear pain Respiratory/Chest Respiratory/Chest: Denies cough or dyspnea Gastrointestinal Gastrointestinal: Denies abdominal pain, constipation, diarrhea, nausea or vomiting Genitourinary Genitourinary ED: Denies dysuria or hematuria Musculoskeletal Musculoskeletal: Denies arthralgias Integumentary Denies abscess Neurologic Neurologic: Denies headache(s) Psychiatric Psychiatric: Denies anxiety Endocrine Endocrinology: Denies polydipsia Hematologic/Lymphatic Hematologic/Lymphatic: Denies easy bleeding Allergic/Immunologic Allergic/Immunologic ED: Denies mouth swelling, tongue swelling or urticaria EXAM Physical Exam Narrative Exam Narrative: Well-appearing 84-year-old male. Vital signs stable afebrile. Does not look septic toxic. No distress. at bedside. H EENT exam pupils are react to light. Moist mucous members. Neck nontender no JVD. Lungs clear to auscultation bilaterally. Heart regular rhythm rate about 70 no murmur. Chest wall and ribs nontender. Abdomen soft nontender. Rectal exam done brown stool. No gross blood. No black stool. There is 1 external hemorrhoid it is not tender it is not thrombosed. Is not actively bleeding. Moving all 4 extremitie s. Nontender no edema. Neurologically is awake and alert. Answering questions following commands. Const Vital Signs: 09/17/24 10:50 Temperature 98.6 F Temperature Source Oral Pulse Rate 72 Respiratory Rate 18 Blood Pressure 109/68 Blood Pressure Mean 81 Pulse Ox 96 Positive well nourished and well developed; Negative for obese, cachectic or contractures General Appearance ED: well developed and NAD; Negative for cachectic, contractures or pallor Nutritional Appearance: Negative for cachectic or obese HEENT Reports moist mucous membranes normocephalic and atraumatic Eyes PERRL and EOMs intact bilaterally General Eye ED: Negative for pale conjunctiva or scleral icterus Neck no lymphadenopathy, supple and no JVD Resp normal respiratory effort and clear to auscultation bilaterally Cardio regular rate, regular rhythm, S1 normal heart sound, S2 normal heart sound and no murmurs GI non-tender, non-distended and no masses Palpation: soft; Negative for tender, guarding, pulsatile mass or rebound tenderness present Back/Spine no CVA tenderness General Back: Negative for CVA tenderness Cervical Spine: Negative for cervical spine tenderness Thoracic Spine / Upper Back: Negative for thoracic spinal tenderness Lumbar Spine / Lower Back: Negative for lumbar spinal tenderness Extremity full ROM General Extremety ED: Negative for edema or tenderness General Extremity: Negative for edema Neuro CN's II-XII intact bilaterally and moves all extremities Sensorium / Orientation: alert, oriented to person, oriented to place and oriented to time Motor Exam: strength 5/5 throughout Psych mental status grossly normal and thought process normal Skin no wounds General Skin Exam: Negative for jaundice or pallor Lesions: no lesions Rashes: no rashes MDM MDM MDM Narrative Medical decision making narrative: 84-year-old male on Eliquis due to prior pulmonary emboli with hemoptysis and rectal bleeding. Had significant GI bleed a year ago. Repeat exam patient is doing well at 12:35 PM. Has had no further bloody bowel movement since he has been here. I discussed with him and his all his labs. They are comfortable with prefer to be discharged to home versus admission. He was seen and scoped by Dr. Moreno follow-up last year. He will follow-up with their office and/or get another blood count to his primary care physician's office. They know that if he has worsening bleeding to return. He will continue his current medications. History & Record Review Discussion w/independent historian: Patient and Family Additional record(s) reviewed:: Prior inpatient record, Prior outpatient record, Prior ED visit and Prior labs Lab Data Attestation: I reviewed the patient's lab results. Lab results narrative: CBC shows a white count of 7 H&H 9.8 and 32.2. Platelets 182. Electrolytes show sodium 139. Gap 12. Normal BUN 19 creatinine 0.7. Glucose 114. Blood type negative. Labs: Laboratory Results - last 24 hr 09/17/24 11:08 WBC 7.4 RBC 3.63 L Hgb 9.8 L Hct 32.2 L MCV 88.7 MCH 27.0 MCHC 30.4 L RDW Std Deviation 53.1 H RDW Coeff of Estelita 16.3 H Plt Count 182 MPV 8.7 Sodium 139 Potassium 4.1 Chloride 105 Carbon Dioxide 22.4 Anion Gap 12 BUN 19 Creatinine 0.70 Estim Creat Clear Calc 73.61 Est GFR (MDRD) Non-Af 92 BUN/Creatinine Ratio 26.9 H Glucose 114 H Calcium 8.7 Blood Type O NEGATIVE Antibody Screen NEGATIVE Radiography Diagnostic Testing: Clinical Impression(s) from Imaging Studies Chest X-Ray 09/17/24 11:35 IMPRESSION: A subtle airspace disease process is identified in the right mid lung field region and the left upper lobe. These may represent pneumonic infiltrates in the right clinical setting. Follow-up imaging is recommended to follow these processes if patient's symptoms continue or worsen. Bilateral parenchymal scarring is noted. Chronic left pleural effusion versus pleural parenchymal scarring. Reading Location: [facility] Discharge Plan Triage Chief Complaint: GI Bleed ED Provider: Aaron Hurst Dx/Rx/DC Orders Clinical Impression: GI (gastrointestinal bleed), History of GI bleed, Chronic anticoagulation, History of pulmonary embolism, Chronic anemia, History of COPD Instructions: ED Lower GI Bleeding (Stable) Prescriptions: No Action fluticasone propion-salmeterol [Advair HFA] 230-21 mcg/actuation HFA aerosol inhaler 2 puff inhalation BID nitroglycerin 0.4 MG tablet 0.4 mg SL Q5M PRN (Reason: Chest Pain) atorvastatin 40 mg tablet 40 mg PO QHS duloxetine 30 mg capsule,delayed release(DR/EC) 30 mg PO QPM tamsulosin 0.4 mg capsule 0.4 mg PO QPM Spiriva Respimat 2.5 mcg/actuation mist 2 puff INHALATION DAILY Rx Instructions: USES AROUND NOON ezetimibe 10 mg tablet 10 mg PO DAILY Patient Comments: PT TAKES AT NIGHT albuterol sulfate 90 mcg/actuation HFA aerosol inhaler 2 puff inhalation Q4H PRN (Reason: wheezing) aspirin [Enteric Coated Aspirin] 81 mg tablet,delayed release (DR/EC) 81 mg PO DAILY Patient Comments: PT TAKES AT BEDTIME oxycodone 5 mg tablet 5 mg PO Q4H PRN ondansetron 4 mg tablet,disintegrating 4 mg PO DAILY PRN (Reason: nausea and vomiting) roflumilast 500 mcg tablet 500 mcg PO DAILY Patient Comments: PT TAKES AND DOESN'T TAKE. HE TAKES A 1/2 TABLET, A WHOLE TABLET BOTHERS HIM. Santyl 250 unit/gram ointment 1 applic topical DAILY Patient Comments: USING DIFFERENT TREATMENT guaifenesin [Mucinex] 600 mg tablet extended release 12hr 1,200 mg PO BID PRN (Reason: cough) metoprolol tartrate 50 mg Tablet 50 mg PO BID Qty: 60 1RF Patient Comments: SPLITTING IN HALF RIGHT NOW BECAUSE IT MAKES HIM DIZZY. sulfamethoxazole-trimethoprim [Bactrim DS] 800-160 mg tablet 1 tab PO BID 14 Days Qty: 28 0RF furosemide [Lasix] 20 mg tablet 20 mg PO DAILY PRN (Reason: weight gain) 30 Days Qty: 0 0RF Patient Comments: PT ONLY TAKES NEEDED; HASNT TAKEN IN 10 DAYS lorazepam 1 mg tablet 1 mg PO TID PRN (Reason: anxiety) 30 Days Qty: 0 0RF Patient Comments: PT TAKES NEEDED Primary Care Provider: Dillan Cummins Referrals: Dillan Cummins MD [Primary Care Provider] - As soon as possible (Follow-up with your doctor to have your blood count rechecked to make sure it is not dropping.) Garcia Moreno DO [Med Staff - Active Staff] - As soon as possible Activity Restrictions/Additional Instructions: Follow-up with your primary care physician to have your blood count rechecked. Follow-up with Dr. Moreno the GI doctor for possible colonoscopy. If you are having heavier or heavier bleeding passing clots feeling worse return you may have some mild bleeding that you can just follow-up with your primary care physician and the GI doctor for. Print Language: [place] Disposition Disposition: Home, Self Care
--- NOTE | 2024-09-17 11:35 | RAD_ITS ---
PROCEDURE: CHEST PA AND LATERAL 09/17/2024 REASON FOR EXAM: HEMOPTYSIS TECHNIQUE: CHEST PA AND LATERAL COMPARISON: Chest x-ray studies dated 06/03/2024 and 05/22/2024. A CTA of the chest dated 05/22/2024 was also reviewed. FINDINGS: Hardware: Median sternotomy wires and vascular clips are noted. Cardiac leads overlie the chest. Heart: Unremarkable. Heart size and configuration are within normal limits. Mediastinum: Arteriosclerotic vascular disease of the aorta is noted. Trachea is midline. Pulmonary vasculature is within normal limits. Mediastinal silhouette is within normal limits. Lungs: Lungs are hyperinflated with flattening of the hemidiaphragms compatible with COPD. Bilateral parenchymal scarring is noted. There is a subtle airspace disease process identified in the lateral aspect of the right mid lung field. There is also an irregularly marginated density in the left upper lobe which is more pronounced when compared to the prior study. There is blunting of the left costophrenic angle which appears stable. This could represent a chronic pleural effusion or pleural parenchymal scarring. Bones: Diffuse osteopenia of the bony thorax is seen. Degenerative changes of the thoracic spine are noted. There appears to be a hiatal hernia which is similar when compared to the prior exam. RAD/Chest PA and Lateral IMPRESSION: A subtle airspace disease process is identified in the right mid lung field reg ion and the left upper lobe. These may represent pneumonic infiltrates in the right clinical setting. Follow-up imaging is brown mmended to follow these processes if patient's symptoms continue or worsen. Bilateral parenchymal scarring is noted. Chronic left pleural effusion versus pleural parenchymal scarring. Reading Location: [id number]
--- OUTSIDE RECORDS SUMMARY | 2024-09-17 11:36 | XMS RPT_ITS | CCD ---
Author Organization [facility] CliniSyvt Care Team Providers Care Broadcast Operations Manager Name Role Phone ROZ DYE Unavailable Unavailable ROZ DYE Unavailable Unavailable Mei Cummins Unavailable Unavailable ROZ DYE Unavailable Unavailable ROZ DYE Unavailable Unavailable Mei Cummins Unavailable Unavailable Mei Cummins Primary Care Provider Enio SOTO MD, Dajaredung Unavailable Mei Cummins MD Primary Care Provider Dr. Mei Cummins Primary Care Provider Dr. Mei Cummins Referring Provider [phone] Dr. Yong Calvillo Attending Provider [phone] Enio SOTO MD, Daesung Unavailable Mei Cummins MD Primary Care Provider Mei Cummins MD Primary Care Provider Enio SOTO MD, Daesung Unavailable Mei Cummins MD Primary Care Provider Dr. Mei Cummins Primary Care Provider Dr. Mei Cummins Referring Provider Dr. Yong Calvillo Attending Provider [phone] ALEX RIVAS Admitting Unavailable ALEX RIVAS Attending Unavailable MEI CUMMINS Primary Care Unavailable Dr. Mei Cummins Primary Care Provider Dr. Mei Cummins Referring Provider Dr. Yong Calvillo Attending Provider Dr. Mei Cummins Primary Care Provider Dr. Randy Londono Emergency Provider Dr. Jacob Suazo Admit Provider Dr. Jacob Suazo Attending Provider Dr. Jacob Suazo Other Provider Dr. Sushila Rivers Attending Provider Dr. Martin Zaragoza Attending Provider Dr. Daksha Corey Attending Provider Dr. Oliverio Allen Attending Provider Dr. Martin Zaragoza Other Provider Mei Cummins Primary Care Provider OLIVERIO HERRMANN Attending Unavailable MEI CUMMINS Primary Care Unavailable MEI CUMMINS Primary Care Unavailable OLIVERIO HERRMANN Attending Unavailable Anuja Steen MD Unavailable Dr. Mei Cummins Primary Care Provider Dr. Randy Londono Emergency Provider Dr. Jacob Suazo Admit Provider Dr. Jacob Suazo Attending Provider Dr. Jacob Suazo Other Provider Dr. Martin Zaragoza Attending Provider Dr. Daksha Corey Attending Provider Dr. Oliverio Allen Attending Provider Dr. Jacob Suazo Referring Provider Dr. Martin Zaragoza Other Provider Anuja Steen MD Unavailable Salazar Meraz DO Unavailable Mei Cummins MD Primary Care Provider ADI CORTEZ Attending Unavailable ADI CORTEZ Admitting Unavailable MEI CUMMINS Primary Care Unavailable Maikel IMPROVEMENT COORDINATOR.Twila MCCLENDON Unavailable Efraín IMPROVEMENT COORDINATOR.LEGAL STENOGRAPHER, Jamshid Unavailable Dr. Mei Cummins MD Referring Provider Sosa Araujo Attending Provider Joie ARREOLA, Dr. Hudson Emergency Provider Dr. Mei Cummins MD Primary Care Provider Tita SOTO, Dr. Sushila Anderson Admit Provider Tita SOTO, Dr. Sushila Anderson Referring Provider Tita SOTO, Dr. Sushila Anderson Other Provider Sebastian ARREOLA, Dr. Grimaldo Attending Provider Sebastian ARREOLA, Dr. Grimaldo Other Provider Gabriele ARREOLA, Dr. James Other Provider Dr. Jacob Suazo DO Attending Provider Dr. Mei Cummins MD Attending Provider Jose PSYCHOMETRIC EXAMINER-C, Rosa E Attending Provider Rajendra DPM, Dr. Alford Referring Provider Jose PSYCHOMETRIC EXAMINER-C, Rosa E Other Provider Jose PSYCHOMETRIC EXAMINER-C, Rosa E Referring Provider Yair DPM, Dr. Magdaleno Attending Provider Yair OAKESM, Dr. Magdaleno Other Provider Dr. Randy Londono MD Emergency Provider Gabriele ARREOLA, Dr. James Admit Provider Dr. Malu Steen DO Attending Provider Dr. Malu Steen DO Other Provider Dr. Mei Cummins MD Referring Provider Sosa Araujo Attending Provider Joie ARREOLA, Dr. Hudson Emergency Provider Maria G SOTO, Dr. Grimaldo Primary Care Provider [phone] Tita SOTO, Dr. Sushila Anderson Admit Provider Tita SOTO, Dr. Sushila Anderson Referring Provider Tita SOTO, Dr. Sushila Anderson Other Provider Sebastian ARREOLA, Dr. Grimaldo Attending Provider Sebastian ARREOLA, Dr. Grimaldo Other Provider Gabriele ARREOLA, Dr. James Other Provider Gabriele ARREOLA, Dr. James Attending Provider Maria G SOTO, Dr. Grimaldo Attending Provider [phone] Jose PSYCHOMETRIC EXAMINER-C, Rosa E Attending Provider Testrajose DPM, Dr. Alford Referring Provider Jose PSYCHOMETRIC EXAMINER-C, Rosa E Other Provider Jose PSYCHOMETRIC EXAMINER-C, Rosa E Referring Provider Yair DPM, Dr. Magdaleno Attending Provider Yair DPM, Dr. Magdaleno Other Provider Bry SOTO, Dr. Padilla Emergency Provider Gabriele ARREOLA, Dr. James Admit Provider [phone] Enio ARREOLA, Dr. Toribio Attending Provider Enio ARREOLA, Dr. Toribio Other Provider Saul SOTO, Dr. Rocha Emergency Provider Hina SOTO, Dr. Elizabeth Alexis Admit Provider Hina SOTO, Dr. Elizabeth Alexis Attending Provider Hina SOTO, Dr. Elizabeth Alexis Other Provider Josh ARREOLA, Dr. Zelaya Attending Provider Mraia G SOTO, Dr. Grimaldo Referring Provider [phone] Gabriele ARREOLA, Dr. James Referring Provider Sosa Araujo Attending Provider Sosa Araujo Referring Provider Teresa Garner Attending Provider Teresa Garner Referring Provider Genaro COUCH-CMirna Other Provider Tannhof IMPROVEMENT COORDINATOR.LEGAL STENOGRAPHER, Twila Unavailable Unavail able Tannhof IMPROVEMENT COORDINATOR.LEGAL STENOGRAPHER, Twila Unavailable Dr. Mei Cummins MD Primary Care Provider Gabriele ARREOLA, Dr. James Other Provider Sebastian ARREOLA, Dr. Grimaldo Other Provider Sebastian ARREOLA, Dr. Grimaldo Attending Provider Gabriele ARREOLA, Dr. James Attending Provider Mirna IMPROVEMENT COORDINATOR.DANELLE, Twila Unavailable Dr. Mei Cummins MD Primary Care Provider Jose PSYCHOMETRIC EXAMINER-C, Rosa E Attending Provider Jose PSYCHOMETRIC EXAMINER-C, Rosa E Other Provider Rajendra GOMEZ, Dr. Alford Referring Provider Dr. Mei Cummins MD Referring Provider Dr. Mei Cummins MD Primary Care Provider Rajendra GOMEZ, Dr. Alford Referring Provider Jose PSYCHOMETRIC EXAMINER-C, Rosa E Attending Provider Jose PSYCHOMETRIC EXAMINER-C, Rosa E Referring Provider JUAN CARLOS VIVEROS Attending Unavailable MEI CUMMINS Primary Care Unavailable ROSALIE MARTINEZ Attending Unavailable MEI CUMMINS Primary Care Unavailable MEI CUMMINS Attending Unavailable MEI CUMMINS Primary Care Unavailable MEI CUMMINS Attending Unavailable MEI CUMMINS Primary Care Unavailable SALAZAR MERAZ Referring Unavailable MEI CUMMINS Primary Care Unavailable TWILA WESTON Referring Unavailabl e ELDERBROCK, MEI D Primary Care Unavailable MASCI, SALAZAR A Referring Unavailable ELDERBROCK, MEI D Primary Care Unavailable SHARYN SKY Referring Unavailable ELDERBROCK, MEI D Primary Care Unavailable TESTRAKE, JUAN CARLOS Referring Unavailable ELDERBROCK, MEI D Primary Care Unavailable TESTRAKE, JUAN CARLOS Referring Unavailable ELDERBROCK, MEI D Primary Care Unavailable MASCI, SALAZAR Merino Referring Unavailable ELDERBROCK, MEI D Primary Care Unavailable KAILASH CORDOVA Attending Unavailable AB CALVILLO Referring Unavailable ELDERBROCK, MEI D Primary Care Unavailable MASCI, SALAZAR A Referring Unavailable ELDERBROCK, MEI D Primary Care Unavailable TESTRAKE, JUAN CARLOS Attending Unavailable TESTRAKE, JUAN CARLOS Referring Unavailable ELDERBROCK, MEI D Primary Care Unavailable KAILASH CORDOVA Attending Unavailable ROSALIE MARTINEZ Referring Unavailable ELDERBROCK, MEI D Primary Care Unavailable KAILASH CORDOVA Referring Unavailable ELDERBROCK, MEI D Primary Care Unavailable BELA MANZANO Attending Unavailable BELA MANZANO Referring Unavailable ELDERBROCK, MEI D Primary Care Unavailable ELDERBROCK, EMI D Attending Unavailable ELDERBROCK, MEI D Primary Care Unavailable TESTRAKE, JUAN CARLOS Attending Unavailable ELDERBROCK, MEI D Primary Care Unavailable ELDERBROCK, MEI D Primary Care Unavailable TWILA WESTON Attending Unavailabl e ELDERBROCK, MEI D Primary Care Unavailable TESTRAKE, JUAN CARLOS Attending Unavailable ELDERBROCK, MEI D Primary Care Unavailable SALAZAR MERAZ Referring Unavailable ELDERBROCK, MEI D Primary Care Unavailable KAILASH CORDOVA Referring Unavailable ELDERBROCK, MEI Bruno Primary Care Unavailable ELDERBROCK, MEI D Primary Care Unavailable VASHTI OTOOLE Referring Unavailable ELDERBROCK, MEI D Primary Care Unavailable BELA MANZANO Attending Unavailable BELA MANZANO Referring Unavailable ELDERBROCK, MEI D Primary Care Unavailable ELDERBROCK, MEI D Primary Care Unavailable KAILASH CORDOVA Attending Unavailable ELDERBROCK, MEI D Primary Care Unavailable SALAZAR MERAZ Referring Unavailable ELDERBROCK, MEI D Primary Care Unavailable CHARI VELEZ Referring Unavailable ELDERBROCK, MEI D Primary Care Unavailable TESTRAKE, JUAN CARLOS Attending Unavailable TESTRAKEJUAN CARLOS Referring Unavailable ELDERBROCK, MEI D Primary Care Unavailable TESTRAKE, JUAN CARLOS Referring Unavailable ELDERBROCK, MEI D Primary Care Unavailable MASCHawa, SALAZAR A Referring Unavailable ELDERBROCK, MEI D Primary Care Unavailable ELDERBROCK, MEI D Primary Care Unavailable TESTRAKEJUAN CARLOS Attending Unavailable ELDERBROCK, MEI D Primary Care Unavailable TYRELL VIGIL Referring Unavailable ELDERBROCK, MEI D Primary Care Unavailable TYRELL VIGIL Referring Unavailable ELDERBROCK, MEI D Primary Care Unavailable BETITO MAURO Attending Unavailable TYRELL VIGIL Referring Unavailable ELDERBROCK, MEI D Primary Care Unavailable BETITO MAURO Referring Unavailable ELDERBROCK, MEI D Primary Care Unavailable BETITO MAURO Attending Unavailable BETITO MAURO Referring Unavailable ELDERBROCK, MEI D Primary Care Unavailable MASCISALAZAR A Referring Unavailable ELDERBROCK, MEI D Primary Care Unavailable KAILASH CORDOVA Attending Unavailable ELDERBROCK, MEI D Primary Care Unavailable TESTFELIX, JUAN CARLOS Attending Unavailable TESTRAKE, JUAN CARLOS Referring Unavailable ELDERBROCK, MEI D Primary Care Unavailable TESTRAKE, JUAN CARLOS Attending Unavailable ELDERBROCK, MEI D Primary Care Unavailable SALAZAR MERAZ Attending Unavailable ELDERBROCK, MEI D Primary Care Unavailable ROSALIE MARTINEZ Attending Unavailable ELDERBROCK, MEI D Primary Care Unavailable SELBETITO JC Attending Unavailable ELDERBROCK, MEI D Primary Care Unavailable BELA MANZANO Referring Unavailable ELDERBROCK, MEI D Primary Care Unavailable KAILASH CORDOVA Attending Unavailable ELDERBROCK, MIE D Primary Care Unavailable MASCI, SALAZAR A Referring Unavailable ELDERBROCK, MEI D Primary Care Unavailable MASCI, SALAZAR A Referring Unavailable ELDERBROCK, MEI D Primary Care Unavailable Jacob Suazo Admitting Unavailable Jacob Suazo Consulting Unavailable Elderbrock, Mei Primary Care Unavailable Malu Steen Attending Unavailable Tereletsnegro, Mei Consulting Unavailable White, Sushila L Consulting Unavailable White, Sushila L Referring Unavailable White, Sushila L Admitting Unavailable Elderbrock, Mei Primary Care Unavailable Mei Cortes Attending Unavailable Jacob Suazo Consulting Unavailable Sebastian Mei Consulting Unavailable Salazar Owens Admitting Unavailable Salazar Owens Consulting Unavailable Elderbrock, Mei Primary Care Unavailable Etta Edmondson Attending Unavailable Miguel Lara Consulting Unavailable Elizabeth Santamaria Consulting Unavailable Elizabeth Santamaria Attending Unavailable Etta Edmondson Admitting Unavailable Etta Edmondson Consulting Unavailable Elderbrock, Mei Primary Care Unavailable Etta Edmondson Admitting Unavailable Etta Edmondson Consulting Unavailable Elderbrock, Mei Primary Care Unavailable Etta Edmondson Attending Unavailable Salazar Owens Admitting Unavailable Salazar Owens Consulting Unavailable Caryl Hendricks Attending Unavailable [facility] Primary Care Unavailable Miguel aLra Consulting Unavailable Koram, Elizabeth Vanesa Consulting Unavailable Etta Edmondson Consulting Unavailable Koram, Elizabeth Vanesa Referring Unavailable [facility] Care Unavailable Friend, Garcia Attending Unavailable [facility] Primary Care Unavailable Steven Kauffman Attending Unavailable Sosa Silva Attending Unavailable Sosa Silva Referring Unavailable [facility] Primary Care Unavailable AdamsTeresa Referring Unavailable [facility] Primary Care Unavailable Mirna Lam Consulting Unavailable Teresa Garner Attending Unavailable Sosa Silva Attending Unavailable Sosa Silva Referring Unavailable [facility] Primary Care Unavailable Sosa Silva Referring Unavailable Sosa Silva Attending Unavailable [facility] Care Unavailable [facility] Primary Care Unavailable Efrain Ruben Referring Unavailable Efrain Ruben Attending Unavailable TestraJuan Carlos patino Referring Unavailable Jose PSYCHOMETRIC EXAMINER, Rosa E Attending Unavailabl e [facility] Care Unavailable [facility] Care Unavailable [facility] Attending Unavailable [facility] Referring Unavailable Testrake, Juan Carlos Referring Unavailable Jose PSYCHOMETRIC EXAMINER, Rosa E Attending Unavailabl e [facility] Care Unavailable Koram, Elizabeth Vanesa Attending Unavailable Koram, Elizabeth Vanesa Referring Unavailable Friend, Garcia Attending Unavailable TestraJuan Carlos patino Referring Unavailable Jose PSYCHOMETRIC EXAMINER, Rosa E Consulting Unavailabl e Jose PSYCHOMETRIC EXAMINER, Rosa E Attending Unavailabl e [facility] Unavailable Jose PSYCHOMETRIC EXAMINER, Rosa E Consulting Unavailabl e Jose PSYCHOMETRIC EXAMINER, Rosa E Attending Unavailabl e [facility] Care Unavailable Jose PSYCHOMETRIC EXAMINER, Orsa E Referring Unavailabl e Jose PSYCHOMETRIC EXAMINER, Rosa E Attending Unavailabl e [facility] Unavailable Jose PSYCHOMETRIC EXAMINER, Rosa E Referring Unavailabl e Jose PSYCHOMETRIC EXAMINER, Rosa E Consulting Unavailabl e Jose PSYCHOMETRIC EXAMINER, Rosa E Attending Unavailabl e Jose PSYCHOMETRIC EXAMINER, Rosa E Referring Unavailabl e Rasta Mazariegos Consulting Unavailable [facility] Primary Care Unavailable Koram, Elizabeth Vanesa Consulting Unavailable Koram, Elizabeth Vanesa Admitting Unavailable Jacob Suazo Attending Unavailable Elderbrock, Mei Primary Care Unavailable Gabriele Jacob Consulting Unavailable Etta Edmondson Attending Unavailable Sosa Silva Attending Unavailable Elderbrock, Mei Referring Unavailable Elderbrock, Mei Primary Care Unavailable AtanasSosa feng Attending Unavailable Elderbrock, Mei Referring Unavailable AtanasovSosa Attending Unavailable Elderbrock, Mei Referring Unavailable Elderbrock, Mei Primary Care Unavailable Elderbrock, Mei Primary Care Unavailable Elderbrock, Mei Referring Unavailable Friend, Garcia Attending Unavailable Sosa Silva Attending Unavailable Elderbrock, Mei Referring Unavailable Elderbrock, Mei Primary Care Unavailable White, Sushila L Consulting Unavailable White, Sushila L Attending Unavailable White, Sushial L Referring Unavailable White, Sushila L Admitting Unavailable Elderbrock, Mei Primary Care Unavailable Jacob Suazo Attending Unavailable Gabriele Jacob Consulting Unavailable TereletsMei tom Attending Unavailable Tereletsky, Mei Consulting Unavailable Koram, Elizabeth Vanesa Attending Unavailable Koram, Elizabeth Vanesa Referring Unavailable Friend, Garcia Attending Unavailable Koram, Elizabeth Vanesa Consulting Unavailable Koram, Elizabeth Vanesa Admitting Unavailable Jacob Suazo Attending Unavailable Elderbrock, Mei Primary Care Unavailable Testrake, Juan Carlos Referring Unavailable Rasta Mazariegos Attending Unavailable Elderbrock, Mei Primary Care Unavailable Testrake, Juan Carlos Referring Unavailable MazariegosRasta Attending Unavailable Elderbrock, Mei Primary Care Unavailable Gilbert, Josué Chi Attending Unavailable Gilbert, Josué Chi Admitting Unavailable Elderbrock, Mei Primary Care Unavailable Koram, Elizabeth Vanesa Referring Unavailable Elderbrock, Mei Primary Care Unavailable Friend, Garcia Attending Unavailable Testrake, Juan Carlos Referring Unavailable MazariegosRasta Attending Unavailable Elderbrock, Mei Primary Care Unavailable Sosa Silva Attending Unavailable Sosa Silva Referring Unavailable Elderbrock, Mei Primary Care Unavailable Etta Edmondson Referring Unavailable Oliverio Allen Attending Unavailable Elderbrock, Mei Primary Care Unavailable Testrake, Juan Carlos Referring Unavailable Mazariegos Rasta Attending Unavailable Elderbrock, Mei Primary Care Unavailable Koram, Elizabeth Vanesa Consulting Unavailable Salazar Owens Attending Unavailable Elderbrock, Mei Primary Care Unavailable Gabriele Jacob Admitting Unavailable Mostrajan Jacob Consulting Unavailable Elderbrock, Mei Primary Care Unavailable Tereletsky, Mei Attending Unavailable Tereletsky, Mei Consulting Unavailable Malu Steen Attending Unavailable Malu Steen Consulting Unavailable Elizabeth Santamaria Attending Unavailable Jacob Suazo Referring Unavailable Garcia Moreno Attending Unavailable Jacob Suazo Attending Unavailable [place] Consulting Unavailable Izaiah Silvestre Consulting Unavailable Yong Calvillo Consulting Unavailable Bela Baldwin Consulting Unavailable Abrahan Blanca Consulting Unavailable Clay Rivero Consulting Unavailable Olga Rice Consulting UnavailMarco Antonio Koch Consulting Unavailable Philip Estes Consulting Unavailable Shelli Moss Consulting Unavailable AlRobbie olsen Consulting Unavailable Steven, Sanjay Consulting Unavailable Daniele Guo Consulting Unavailable Stanislaw Yao Consulting Unavailable Melvin Duke Consulting Unavailable Oswaldo Calvillo Consulting Unavailable Miguel Lara Attending Unavailable Mei Cummins Primary Care Unavailable Rasta Mazariegos Attending Unavailable Juan Carlos Viveros Referring Unavailable Allergies Allergy Classification Reported Allergen(s) Allergy Type Date of Onset Reaction(s) Facility Isosorbide (2 sources) Isosorbide Drug Allergy 6 [facility] (20 sources) isosorbide; Translations: [ISOSORBIDE MONONITRATE] Drug Allergy 6 [facility] (4 sources) Isosorbide Dinitrate Drug Allergy 6 [place], [place] (20 sources) Isosorbide Drug Allergy 0 Other-patient blacks out [place], [place] (1 source) traMADol Drug Allergy 1 Nausea Only [place], [place] (1 source) Isosorbide Drug Allergy 5 [facility] Rep[facility] Medications Current Medications Medication Drug Class(es) Dates Sig (Normalized) Sig (Original) acetaminophen 65 mg/ml / oxyCODONE hydrochloride 1 mg/ml oral solution (2 sources) Opioid Agonist oxyCODONE-acetam i nophen (Roxicet) 5-325 MG/5ML solution Take by mouth. 0 Active [id number] 200 actuat albuterol 0.09 mg/actuat metered dose inhaler (20 sources) beta2-Adrenergic Agonist Start: 02-19-2024 Start: 02-19-2024 Albuterol Sulf ate 90 mcg/actuation HFA aerosol inhaler Active 2 NMA INHALATION Q4H as needed for wheezing February 19, 2024 1:00am Start: 12-08-2023 take 2 puff(s) by in halation every four hours as needed for wheezing albuterol HFA (PROAIR HFA) 90 mcg/actuation inhaler Inhale 2 Puffs as instructed every 4 hours as needed for wheezing/shortness of breath. 6.7 g 5 12/08/2023 Active Start: 03-25-2023 End: 03-25-2023 Start: 03-25-2023 End: 03-25-2023 Albuterol Sulfate 90 mcg/act uation HFA aerosol inhaler Discontinued 2 NMA INHALATION Q4H as needed for shortness of breath March 25, 2023 1:00am March 25, 2023 4:06pm Start: 03-25-2023 End: 03-25-2023 Albuterol Sulfate Discontinu ed 2 INH INHALATION Q4H March 25, 2023 1:00am March 25, 2023 4:06pm Start: 02-08-2020 End: 07-25-2022 Start: 02-08-2020 End: 07-25-2022 Albuterol Sulfate (Ventolin Hfa) 90 mcg/actuation HFA aerosol inhaler Discontinued 2 NMA INHALATION Q4H as needed for shortness of breath or wheezing July 25, 2022 12:13pm July 25, 2022 2:48pm Start: 02-08-2020 End: 07-25-2022 take 1 puff(s) by inhalation every four hours Albuterol Sulfate (Ventolin Hfa) 90 mcg/actuation HFA aerosol inhaler Discontinued 2 PUFF INHALATION Q4H July 25, 2022 12:13pm July 25, 2022 2:48pm Start: 04-03-2017 End: 03-25-2023 Start: 04-03-2017 End: 03-25-2023 take 2.5 mg by inhalation every four hours as needed for chronic obstructive pulmonary disease Albuterol Sulfate 2.5 mg /3 mL (0.083 %) solution for nebulization Discontinued 2.5 mg INHALATION Q4H as needed for J44.9 COPD 120 February 14, 2020 1:43pm March 25, 2023 4:11pm Start: 04-19-2016 End: 03-19-2020 Start: 04-19-2016 End: 03-19-2020 Albuterol Sulfate 1 INHALER inhaler Discontinued 2 NMA INHALATION EVERY 4 HOURS NEEDED as needed for Sob &/Or Wheezing April 19, 2016 1:00am March 19, 2020 10:10am Start: 04-19-2016 End: 03-19-2020 take 1 puff(s) by inhalation every four hours as needed Albuterol Sulfate Discontinued 2 PUFF INHALATION EVERY 4 HOURS NEEDED April 19, 2016 1:00am March 19, 2020 10:10am Start: 11-09-2015 End: 12-08-2023 take 2 puff(s) by inhalation every four hours as needed for wheezing albuterol HFA (PROAIR HFA) 90 mcg/actuation inhaler Indications: Chronic obstructive pulmonary disease, unspecified COPD type (HCC) Inhale 2 Puffs as instructed every 4 hours as needed for Wheezing/Shortness of Breath. 1 Inhaler 5 11/09/2015 12/08/2023 Discontinued End: 04-07-2020 albuterol (PROVENTIL) (2.5 M G/3ML) 0.083% nebulizer solution Take 2.5 mg by nebulization every 6 hours as needed for Wheezing 0 04/07/2020 Discontinued (Stop Taking at Discharge) Comment on above: Inhale 2 Puffs as in structed every 4 hours as needed for Wheezing/Shortness of Breath. albuterol 0.833 mg/ml / ipratropium bromide 0.167 mg/ml inhalant solution (6 sources) Anticholinergic, beta2-Adrenergic Agonist Start: 04-06-2020 ipratropium-albutero l (DUONEB) nebulizer solution 1 ampule Start: 04-06-2020 End: 04-06-2020 1 ampule, Inhalation, EVERY 4 HOURS WHILE AWAKE, First dose on Thu04/06/20 at 0800 Start: 02-25-2020 ipratropium-al buterol (DUONEB) nebulizer solution 1 ampule Start: 02-20-2020 End: 02-25-2020 1 ampule, Inhalation, EVERY 4 HOURS WHILE AWAKE, First dose on Thu02/20/20 at 1600 take 20-100 ug by in halation four times daily ipratropium-albuterol (Combivent Respimat) 20-100 MCG/ACT inhaler Inhale 1 puff 4 times daily. 0 Active albuterol sulfate HFA 108 (90 Base) MCG/ACT inhaler (4 sources) Start: 02-08-2020 albuterol sulf ate HFA 108 (90 Base) MCG/ACT inhaler apixaban 2.5 mg oral tablet (20 sources) Factor Xa Inhibitor Start: 07-19-2024 take 1 tablet by mouth twice daily apixaban (ELIQUIS) 2.5 mg tab(s) Take 1 tablet by mouth two times a day. 60 tablet 5 07/19/2024 Active Start: 04-21-2023 End: 03-16-2025 Start: 03-27-2023 End: 10-05-2023 Start: 03-27-2023 End: 10-05-2023 take 2 tablets by mouth twice daily, then take 1 tablet by mouth twice daily Apixaban (Eliquis Dvt-Pe Treat 30d Start) 5 mg (74 tabs) tablets,dose pack Discontinued 5 mg PO TWICE A DAY 74 March 27, 2023 1:00am October 05, 2023 6:04pm 10 mg (2 tabs) twice daily for 7 days and then twice daily to continue. Comment on above: Take 5 mg by mouth t wo times a day. Take 1 tablet by raymond th two times a day. aspirin 81 mg delayed releas e oral tablet (20 sources) Platelet Aggregation Inhibitor, Nonsteroidal Anti-inflammatory Drug Start: 02-23-2020 Start: 12-29-2014 End: 10-17-2023 Comment on above: Take 81 mg by mouth once daily. atorvastatin 40 mg oral tablet (20 sources) HMG-CoA Reductase Inhibitor Start: End: take 1 tablet by mouth once daily atorvastatin (LIPITOR) 40 mg tablet Indications: Coronary artery disease involving [place] coronary artery of [place] heart without angina pectoris , Hyperlipidemia, mixed Take 1 tablet by mouth once daily. 90 tablet 3 08/01/2024 Active Start: 07-09-2020 End: 03-25-2023 Start: 04-06-2020 take 20 mg by mouth once daily 20 mg, Oral, NIGHTLY, First dose on Thu04/06/20 at 2100 Start: 07-19-2019 take 1 tablet by raymond th once daily atorvastatin (LIPITOR) 20 MG tablet Take 20 mg by mouth daily 0 07/19/2019 Active Comment on above: Take 1 tablet by raymond th once daily. TAKE 1 TABLET BY RAYMOND TH EVERY DAY benzonatate 100 mg oral capsule (2 sources) Non-narcotic Antitussive Start: 04-06-19 End: 04-14-19 take 1 capsule by mouth three times daily as needed for cough benzonatate (TESSALON) 100 MG capsule Take 1 capsule by mouth 3 times daily as needed for Cough 15 capsule 0 04/07/2020 04/14/2020 Active budesonide 0.25 mg/ml inhalation suspension (13 sources) Corticosteroid Start: 06-29-19 budesonide (PULMICORT) 0.5 mg/2 mL nebulizer solution Indications: Stage 3 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 ([facility]) Use 2 mL via nebulizer two times a day as needed. INHALE 2 ML BY NEBULIZER OVER 5-15 MINUTES EVERY 12 HOURS. 120 mL 5 06/28/2024 Active collagenase 0.25 unt/mg topical ointment (20 sources) Collagen-specific Enzyme Start: 05-23-19 Start: 05-22-2024 Collagenase Cl ostridium Histo. (Santyl) 250 unit/gram ointment Active 1 NMA TOPICAL DAILY May 22, 2024 12:00am Start: 11-23-2023 collagenase (S ANTYL) ointment Apply to affected area once daily. APPLY TO AFFECTED AREA 30 g 1 11/23/2023 Active Start: 02-04-2022 End: 03-06-2022 collagenase (SANTYL) ointmen t Apply to affected area once daily. APPLY TO AFFECTED AREA 30 g 2 02/04/2022 03/06/2022 Comment on above: Apply to affected ar ea once daily. APPLY TO AFFECTED AREA Cyclosporine (Restasis) 0.05 % dropperette (3 sources) Start: 05-23-19 Cyclosporine (Restasis) 0.05 % dropperette Active 1 NMA OPHTHALMIC TWICE A DAY May 22, 2024 12:00am 12 hr dextromethorphan hydrobromide 30 mg / guaiFENesin 600 mg extended release oral tablet (2 sources) Uncompetitive N-veziiw-P-aspartate Receptor Antagonist, Sigma-1 Agonist take 1 tablet by mouth every twelve hours dextromethorphan-gu aiFENesin (Mucinex DM) 30-600 MG 12 hr tablet Take 1 tablet by mouth in the morning and 1 tablet in the evening. Do not crush, chew, or split.. 0 Active docusate sodium 50 mg / sennosides, long term 8.6 mg oral tablet (3 sources) Start: 02-22-20 End: 02-26-20 sennosides-docusate sodium (SENOKOT-S) 8.6-50 MG tablet 1 tablet doxycycline hyclate 100 mg oral tablet (20 sources) Tetracycline-class Drug Start: 01-19-20 End: 01-29-20 take 1 tablet by mouth twice daily doxycycline (VIBRA-TABS) 100 mg tablet Take 1 tablet by mouth two times a day for 10 days. 20 tablet 01/19/2024 01/29/2024 Active Start: 12-15-2023 End: 12-25-2023 take 1 tablet by mouth twice daily doxycycline (VIBRA-TABS) 100 mg tablet Take 1 tablet by mouth two times a day for 10 days. 20 tablet 12/15/2023 12/25/2023 Active Start: 09-25-2023 End: 10-05-2023 Start: 12-15-2021 End: 02-05-2022 Start: 09-28-2020 End: 10-05-2020 DULoxetine 30 mg delayed release oral capsule (20 sources) Serotonin and Norepinephrine Reuptake Inhibitor Start: 07-27-2020 take 1 capsule by mouth once daily DULoxetine (CYMBALTA) 30 mg capsule Take 30 mg by mouth once daily. 07/27/2020 Active take 1 capsule by mouth twice da shelia DULoxetine (Cymbalta) [address] capsule Take 30 mg by mouth 2 times daily. Do not crush or chew. 0 Active Comment on above: 1 capsule once daily . Take 30 mg by mouth once daily. 0.4 ml enoxaparin sodium 100 mg/ml prefilled syringe (2 sources) Low Molecular Weight Heparin Start: 04-07-2020 enoxaparin (LOVENOX) injection 40 mg Start: 02-20-2020 inject 40 mg by subc utaneous injection once daily 40 mg, Subcutaneous, DAILY, First dose on 02/20/20 at 1500 erythromycin 0.005 mg/mg ophthalmic ointment (20 sources) Macrolide, Macrolide Antimicrobial Start: 10-26-2023 End: 11-02-2023 erythromycin (ROMYCIN) 5 mg/gram (0.5 %) ophthalmic ointment Use 1 application in the left eye four times daily for 7 days. 3.5 g 1 10/26/2023 11/02/2023 Active Start: 10-17-2023 End: 10-23-2023 ezetimibe 10 mg oral tablet (20 sources) Dietary Cholesterol Absorption Inhibitor Start: 06-08-2023 End: 06-27-2024 take 1 tablet by mouth once daily ezetimibe (ZETIA) 10 mg tablet Indications: Hyperlipidemia, mixed Take 1 tablet by mouth once daily. 90 tablet 3 06/27/2024 Active Comment on above: Take 1 tablet by raymond once daily. 120 actuat fluticasone propionate 0.23 mg/actuat / salmeterol 0.021 mg/actuat metered dose inhaler (20 sources) Corticosteroid, beta2-Adrenergic Agonist Start: 09-21-2023 take 2 puff(s) by inhalation twice daily ADVAIR HFA 230-21 mcg/actuation inhaler Inhale 2 Puffs as instructed two times a day. 1 Each 09/21/2023 Active Start: 08-07-2022 Start: 08-07-2022 Fluticasone Pr opion-Salmeterol (Advair Hfa) 230-21 mcg/actuation HFA aerosol inhaler Active 2 NMA INHALATION TWICE A DAY August 07, 2022 12:00am Start: 08-07-2022 take 1 puff(s) by in halation twice daily Fluticasone Propion-Salmeterol (Advair Hfa) 230-21 mcg/actuation HFA aerosol inhaler Active 2 PUFF INHALATION TWICE A DAY August 06, 2022 11:00pm Start: 08-07-2022 take 1 puff(s) by in halation twice daily Fluticasone Propion-Salmeterol (Advair Hfa) 230-21 mcg/actuation HFA aerosol inhaler Active 2 PUFF INHALATION TWICE A DAY August 07, 2022 12:00am Start: 07-15-2022 End: 09-16-2023 take 2 puff(s) by inhalation twice daily ADVAIR HFA 230-21 mcg/actuation inhaler Inhale 2 Puffs as instructed two times a day. 1 Each 04/15/2023 09/16/2023 Discontinued Start: 04-14-2022 End: 08-07-2022 Start: 04-14-2022 End: 08-07-2022 Fluticasone Propion-Salmeter ol (Advair Hfa) 230-21 mcg/actuation HFA aerosol inhaler Discontinued 2 NMA INHALATION TWICE A DAY April 14, 2022 1:00am August 07, 2022 10:42am Start: 04-14-2022 End: 08-07-2022 take 1 puff(s) by inhalation twice daily Fluticasone Propion-Salmeterol (Advair Hfa) 230-21 mcg/actuation HFA aerosol inhaler Discontinued 2 PUFF INHALATION TWICE A DAY April 14, 2022 12:00am August 07, 2022 9:42am Start: 04-14-2022 End: 08-07-2022 take 1 puff(s) by inhalation twice daily Fluticasone Propion-Salmeterol (Advair Hfa) 230-21 mcg/actuation HFA aerosol inhaler Discontinued 2 PUFF INHALATION TWICE A DAY April 14, 2022 1:00am August 07, 2022 10:42am Start: 04-14-2022 take 1 puff(s) by in halation twice daily Fluticasone Propion-Salmeterol (Advair Hfa) 230-21 mcg/actuation HFA aerosol inhaler Active 2 PUFF INHALATION TWICE A DAY April 14, 2022 12:00am take 2 puff(s) by in halation in the morning fluticasone-salmeterol (Advair HFA) 230-21 MCG/ACT inhaler Inhale 2 puffs in the morning and 2 puffs in the evening. Rinse mouth with water after use to reduce aftertaste and incidence of candidiasis. Do not swallow.. 0 Active Comment on above: Inhale 2 Puffs as in structed twice daily. Inhale 2 Puffs as in structed two times a day. furosemide 20 mg oral tablet (20 sources) Loop Diuretic Start: 10-17-2023 End: 06-05-2024 take 1 tablet by mouth once daily furosemide (LASIX) 20 mg tablet Take 1 tablet by mouth once daily. 30 tablet 11 02/08/2024 Active 12 hr guaiFENesin 600 mg extended release oral tablet (20 sources) Start: 10-17-2023 End: 05-22-2024 Start: 09-28-2023 End: 05-22-2024 take 2 tablets by mouth every twelve hours, then take 1 tablet by mouth every twelve hours Guaifenesin (Mucinex) 600 mg tablet extended release 12hr Discontinued 1200 mg PO Q12H 0 7 October 17, 2023 11:59am May 22, 2024 1:30pm Start: 11-29-2020 guaiFENesin (M UCINEX) 600 mg 12 hr tablet Take 1,200 mg by mouth two times a day. 11/29/2020 Active Start: 07-09-2020 End: 03-27-2023 take 1 tablet by mouth twice daily, then take 1 tablet by mouth every twelve hours Guaifenesin (Mucinex) 1,200 mg Tablet Extended Release 12hr Discontinued 1200 mg PO TWICE A DAY July 09, 2020 12:00am March 27, 2023 11:50am Start: 04-06-2020 guaiFENesin (M UCINEX) extended release tablet 600 mg Start: 02-20-2020 take 400 mg by mouth twice daily as needed for cough 400 mg, Oral, 2 TIMES DAILY PRN, Cough, Starting 02/20/20 at 1438 Start: 08-12-2017 End: 05-13-2018 Start: 08-12-2017 End: 05-13-2018 take 1 tablet by mouth every twelve hours Guaifenesin 1,200 mg tablet extended release 12hr Discontinued 1200 mg PO Q12H 60 August 12, 2017 12:00am May 13, 2018 1:24pm take 1 tablet by raymond th twice daily as needed guaiFENesin 400 MG tablet Take 400 mg by mouth 2 times daily as needed 0 Active Comment on above: Take 2 tablets by mo uth twice daily. Take 1,200 mg by raymond th two times a day. ibuprofen 400 mg oral tablet (2 sources) Nonsteroidal Anti-inflammatory Drug Start: 04-06-2020 ibuprofen (ADVIL;MOTRIN) tablet 400 mg Start: 04-05-2020 End: 04-05-2020 ibuprofen (ADVIL;MOTRIN) tab let 600 mg iv contrast (will be provide d with radiology test) (20 sources) Start: 03-21-2024 iv contrast (w ill be provided with radiology test) Indications: Squamous carcinoma of lung, left (HCC) CT Chest W -Inject, intravenously, once for 1 dose.No IV access, insert saline lock prior to the beginning of sedation, infusion, injection of imaging exam. Discontinue saline lock post exam. If Pt. has a central line or IVAD, may access for administration according to line specific nursing protocol. Once exam is complete flush line and de-access according to line specific nursing protocol in the CT contrast administration guidelines link. 1 Each 03/21/2024 Active Start: 01-05-2024 End: 01-06-2024 inject 1 dose intravenously once iv contrast (will be provided with radiology test) CTA ABD/PEL LE - No IV access, insert saline lock prior to the sedation, infusion, injection for imaging exam. Discontinue saline lock post exam. If Pt. has a central line or IVAD, may access for administration according to line specific nursing protocol. Once exam is complete flush line and de-access according to line specific nursing protocol in the CT contrast administration guidelines link. 1 Each 01/05/2024 01/06/2024 Active Start: 11-22-2023 End: 11-23-2023 iv contrast (will be provide d with radiology test) Indications: Squamous carcinoma of lung, left (HCC) CT Chest W -Inject, intravenously, once for 1 dose.No IV access, insert saline lock prior to the beginning of sedation, infusion, injection of imaging exam. Discontinue saline lock post exam. If Pt. has a central line or IVAD, may access for administration according to line specific nursing protocol. Once exam is complete flush line and de-access according to line specific nursing protocol in the CT contrast administration guidelines link. 1 Each 11/22/2023 11/23/2023 Start: 11-22-2023 End: 11-23-2023 iv contrast (will be provide d with radiology test) Indications: Squamous carcinoma of lung, left (HCC) CT Chest W -Inject, intravenously, once for 1 dose.No IV access, insert saline lock prior to the beginning of sedation, infusion, injection of imaging exam. Discontinue saline lock post exam. If Pt. has a central line or IVAD, may access for administration according to line specific nursing protocol. Once exam is complete flush line and de-access according to line specific nursing protocol in the CT contrast administration guidelines link. 1 Each 11/22/2023 11/23/2023 Active Start: 08-24-2023 End: 03-21-2024 iv contrast (will be provide d with radiology test) Indications: Squamous carcinoma of lung, left (HCC) , Lung nodules CT Chest W -Inject, intravenously, once for 1 dose.No IV access, insert saline lock prior to the beginning of sedation, infusion, injection of imaging exam. Discontinue saline lock post exam. If Pt. has a central line or IVAD, may access for administration according to line specific nursing protocol. Once exam is complete flush line and de-access according to line specific nursing protocol in the CT contrast administration guidelines link. 1 Each 08/24/2023 03/21/2024 Discontinued Start: 08-24-2023 iv contrast (w ill be provided with radiology test) Indications: Squamous carcinoma of lung, left (HCC) , Lung nodules CT Chest W -Inject, intravenously, once for 1 dose.No IV access, insert saline lock prior to the beginning of sedation, infusion, injection of imaging exam. Discontinue saline lock post exam. If Pt. has a central line or IVAD, may access for administration according to line specific nursing protocol. Once exam is complete flush line and de-access according to line specific nursing protocol in the CT contrast administration guidelines link. 1 Each 08/24/2023 Active Start: 08-24-2023 iv contrast (w ill be provided with radiology test) Indications: Squamous carcinoma of lung, left (HCC) , Lung nodules CT Chest W -Inject, intravenously, once for 1 dose.No IV access, insert saline lock prior to the beginning of sedation, infusion, injection of imaging exam. Discontinue saline lock post exam. If Pt. has a central line or IVAD, may access for administration according to line specific nursing protocol. Once exam is complete flush line and de-access according to line specific nursing protocol in the CT contrast administration guidelines link. 1 Each 0 08/24/2023 Active Start: 06-19-2023 End: 06-20-2023 iv contrast (will be provide d with radiology test) Indications: Squamous carcinoma of lung, left (HCC) CT Chest W -Inject, intravenously, once for 1 dose.No IV access, insert saline lock prior to the beginning of sedation, infusion, injection of imaging exam. Discontinue saline lock post exam. If Pt. has a central line or IVAD, may access for administration according to line specific nursing protocol. Once exam is complete flush line and de-access according to line specific nursing protocol in the CT contrast administration guidelines link. 1 Each 0 06/19/2023 06/20/2023 Active Start: 05-18-2023 End: 03-21-2024 iv contrast (will be provide d with radiology test) Indications: Squamous carcinoma of lung, left (HCC) CT Chest W -Inject, intravenously, once for 1 dose.No IV access, insert saline lock prior to the beginning of sedation, infusion, injection of imaging exam. Discontinue saline lock post exam. If Pt. has a central line or IVAD, may access for administration according to line specific nursing protocol. Once exam is complete flush line and de-access according to line specific nursing protocol in the CT contrast administration guidelines link. 1 Each 05/18/2023 03/21/2024 Discontinued Start: 05-18-2023 iv contrast (w ill be provided with radiology test) Indications: Squamous carcinoma of lung, left (HCC) CT Chest W -Inject, intravenously, once for 1 dose.No IV access, insert saline lock prior to the beginning of sedation, infusion, injection of imaging exam. Discontinue saline lock post exam. If Pt. has a central line or IVAD, may access for administration according to line specific nursing protocol. Once exam is complete flush line and de-access according to line specific nursing protocol in the CT contrast administration guidelines link. 1 Each 05/18/2023 Active Start: 05-18-2023 iv contrast (w ill be provided with radiology test) Indications: Squamous carcinoma of lung, left (HCC) CT Chest W -Inject, intravenously, once for 1 dose.No IV access, insert saline lock prior to the beginning of sedation, infusion, injection of imaging exam. Discontinue saline lock post exam. If Pt. has a central line or IVAD, may access for administration according to line specific nursing protocol. Once exam is complete flush line and de-access according to line specific nursing protocol in the CT contrast administration guidelines link. 1 Each 0 05/18/2023 Active Start: 01-21-2022 End: 01-22-2022 inject 1 dose intravenously once iv contrast (will be provided with radiology test) CTA ABD/PEL LE - No IV access, insert saline lock prior to the sedation, infusion, injection for imaging exam. Discontinue saline lock post exam. If Pt. has a central line or IVAD, may access for administration according to line specific nursing protocol. Once exam is complete flush line and de-access according to line specific nursing protocol in the CT contrast administration guidelines link. 1 Each 0 01/21/2022 01/22/2022 Start: 11-19-2021 End: 11-20-2021 iv contrast (will be provide d with radiology test) Indications: Malignant neoplasm of unspecified part of unspecified bronchus or lung (HCC) CT Chest ABD/PEL-Inject, intravenously, once for 1 dose.No IV access, insert saline lock prior to the beginning of sedation, infusion, injection of imaging exam. Discontinue saline lock post exam. If Pt. has a central line or IVAD, may access for administration according to line specific nursing protocol. Once exam is complete flush line and de-access according to line specific nursing protocol in the CT contrast administration guidelines link. 1 Each 0 11/19/2021 11/20/2021 Start: 11-19-2021 End: 11-20-2021 iv contrast (will be provide d with radiology test) Indications: Malignant neoplasm of unspecified part of unspecified bronchus or lung (HCC) CT Chest ABD/PEL-Inject, intravenously, once for 1 dose.No IV access, insert saline lock prior to the beginning of sedation, infusion, injection of imaging exam. Discontinue saline lock post exam. If Pt. has a central line or IVAD, may access for administration according to line specific nursing protocol. Once exam is complete flush line and de-access according to line specific nursing protocol in the CT contrast administration guidelines link. 1 Each 0 11/19/2021 11/20/2021 Active Start: 07-19-2021 End: 2021 iv contrast (will be provide d with radiology test) CT Chest W -Inject, intravenously, once for 1 dose.No IV access, insert saline lock prior to the beginning of sedation, infusion, injection of imaging exam. Discontinue saline lock post exam. If Pt. has a central line or IVAD, may access for administration according to line specific nursing protocol. Once exam is complete flush line and de-access according to line specific nursing protocol in the CT contrast administration guidelines link. 1 Each 0 07/19/2021 2021 Active Comment on above: CT Chest W -Inject, intravenously, once for 1 dose.No IV access, insert saline lock prior to the beginning of sedation, infusion, injection of imaging exam. Discontinue saline lock post exam. If Pt. has a central line or IVAD, may access for administration according to line specific nursing protocol. Once exam is complete flush line and de-access according to line specific nursing protocol in the CT contrast administration guidelines link. CT Chest ABD/PEL-Inj ect, intravenously, once for 1 dose.No IV access, insert saline lock prior to the beginning of sedation, infusion, injection of imaging exam. Discontinue saline lock post exam. If Pt. has a central line or IVAD, may access for administration according to line specific nursing protocol. Once exam is complete flush line and de-access according to line specific nursing protocol in the CT contrast administration guidelines link. CTA ABD/PEL LE - No IV access, insert saline lock prior to the sedation, infusion, injection for imaging exam. Discontinue saline lock post exam. If Pt. has a central line or IVAD, may access for administration according to line specific nursing protocol. Once exam is complete flush line and de-access according to line specific nursing protocol in the CT contrast administration guidelines link. 4 ml labetalol hydrochloride 5 mg/ml cartridge (1 source) beta-Adrenergic Konrad Start: 0 10 mg, Intravenous, EVERY 4 HOURS PRN, High Blood Pressure, SBP >160, hold for HR <70, Starting 02/20/20 at 1438 lisinopril 5 mg oral tablet (20 sources) Angiotensin Converting Enzyme Inhibitor Start: 0 take 5 mg by mouth once daily 5 mg, Oral, DAILY, First dose on Thu04/06/20 at 2000 Start: 12-29-2014 End: 11-24-2017 Start: 12-29-2014 End: 11-24-2017 take 1 mg by mouth once daily Lisinopril Discontinued 1 MG PO DAILY December 29, 2014 12:00am November 24, 2017 10:15am LORazepam 1 mg oral tablet (20 sources) Benzodiazepine Start: 07-09-2020 End: 07-13-2024 take 1 tablet by mouth three times daily LORazepam (ATIVAN) 1 mg tablet Indications: Anxiety Take 1 tablet by mouth three times a day for 90 days. 90 tablet 2 04/14/2024 Active Start: 04-06-2020 take 0.5 mg by mouth three times daily as needed for anxiety 0.5 mg, Oral, 3 TIMES DAILY PRN, Anxiety, Starting 04/06/20 at 1930 Start: 02-20-2020 take 0.5 mg by mouth twice daily as needed for anxiety 0.5 mg, Oral, 2 TIMES DAILY PRN, Anxiety, Starting 02/20/20 at 1438 Start: 01-24-2020 LORazepam (ATI VAN) 1 MG tablet 3 times daily as needed. 0 01/24/2020 Active take 1 tablet by raymond th every eight hours as needed for anxiety LORazepam (Ativan) 0.5 MG tablet Take 0.5 mg by mouth every 8 hours as needed for anxiety. 0 Active Comment on above: Take 1 tablet by raymond th three times daily for 90 days. Take 1 tablet by raymond th three times a day for 90 days. methylPREDNISolone 40 mg injection (1 source) Corticosteroid Start: 04-06-19 methylPREDNISolone sodium (SOLU-MEDROL) injection 40 mg metoprolol tartrate 50 mg oral tablet (20 sources) beta-Adrenergic Konrad Start: 05-25-19 Start: 10-17-2023 End: 08-01-2024 Start: 10-17-2023 End: 05-24-2024 Start: 10-17-2023 End: 02-20-2024 take 1 tablet by mouth twice daily, then take 0.5 tablet by mouth twice daily metoprolol tartrate, short acting, (LOPRESSOR) 25 mg tablet Take 1 tablet by mouth two times a day. Take 0.5 tab po bid. 12/21/2023 12/21/2023 Discontinued Start: 10-17-2023 End: 05-24-2024 Metoprolol Tartrate 25 mg Ta blet Discontinued 12.5 mg PO TWICE A DAY February 20, 2024 1:00am May 24, 2024 2:06pm Start: 10-17-2023 End: 02-20-2024 take 1 tablet by mouth every six hours Metoprolol Tartrate 25 mg Tablet Discontinued 25 mg PO EVERY 6 HOURS 120 30 October 23, 2023 12:00am February 20, 2024 10:56am Start: 04-06-2020 take 25 mg by mouth twice lawrence y 25 mg, Oral, 2 TIMES DAILY, First dose on Thu04/06/20 at 2100 Start: 02-20-2020 take 25 mg by mouth twice lawrence y 25 mg, Oral, 2 TIMES DAILY, First dose on 02/20/20 at 2100 Start: 05-03-2019 metoprolol tar trate (LOPRESSOR) 50 MG tablet Take 25 mg by mouth 2 times daily 0 05/03/2019 Active mometasone-formoterol (DULERA) 200-5 MCG/ACT inhaler 2 puff (1 source) Start: 04-06-2020 mometasone-formoterol (DULERA) 200-5 MCG/ACT inhaler 2 puff Naproxen (1 source) Nonsteroidal Anti-inflammatory Drug Naproxen Sodium (NATASHA VE PO) Take by mouth 0 Active nitroglycerin 0.4 mg sublingual tablet (20 sources) Nitrate Vasodilator Start: 12-29-2014 End: 06-08-2024 nitroglycerin sublingual (NITROSTAT) 0.4 mg SL tablet Indications: Essential hypertension Dissolve 1 tablet under the tongue every 5 minutes as needed. 25 tablet 1 06/09/2024 Active nitroglycerin (N itrolinguaL) 0.4 MG/SPRAY spray Place 1 spray under the tongue every 5 minutes as needed for chest pain. 0 Active Comment on above: Dissolve 1 tablet un anthony the tongue every 5 minutes as needed. ondansetron 4 mg disintegrat ing oral tablet (20 sources) Serotonin-3 Receptor Antagonist Start: 03-30-2024 Start: 07-31-2020 End: 09-28-2023 take 1 tablet by mouth every eight hours as needed ondansetron (ZOFRAN) 4 mg tablet Take 4 mg by mouth every 8 hours as needed. 07/31/2020 Active Start: 07-31-2020 End: 09-28-2023 take 1 tablet by mouth every six hours as needed for nausea Ondansetron Hcl 4 mg tablet Discontinued 4 mg PO EVERY 6 HOURS as needed for nausea/vomiting May 28, 2023 12:00am September 28, 2023 1:52pm Start: 03-02-2020 take 1 tablet by raymond th twice daily as needed for nausea ondansetron (ZOFRAN) 4 MG tablet Take 1 tablet by mouth 2 times daily as needed for Nausea or Vomiting 60 tablet 0 03/02/2020 Active Comment on above: 1 tablet as needed. oxyCODONE hydrochloride 5 mg oral tablet (20 sources) Opioid Agonist Start: 02-21-2024 Start: 02-05-2022 End: 10-23-2023 Start: 02-05-2022 take 2.5-5 mg by raymond th every six hours Oxycodone Active 2.5 - 5 MG PO EVERY 6 HOURS February 05, 2022 12:00am Start: 10-30-2021 End: 10-23-2023 take 1 tablet by mouth every four hours as needed oxyCODONE IR (ROXICODONE) 5 mg immediate release tablet Take 5 mg by mouth every 4 hours as needed. 10/30/2021 Active Start: 10-30-2021 take 1 tablet by raymond th every six hours as needed oxyCODONE IR (ROXICODONE) 5 mg immediate release tablet Take 5 mg by mouth four times a day as needed. 10/30/2021 Active oxyCODONE (Oxy-I R) 5 MG immediate release capsule Take 5 mg by mouth. prn 0 Active Comment on above: TAKE 1/2 TABLET BY M OUTH 4 TIMES DAILY NEEDED FOR SHORTNESS OF BREATH Take 5 mg by mouth f our times a day as needed. OXYGEN, HOME THERAPY, (20 sources) OXYGEN, HOME THE RAPY, 4-5 L/min by Nasal Cannula route continuous. Active OXYGEN, HOME THE RAPY, 5 L/min by Nasal Cannula route continuous. Active perflutren lipid microspheres 1.3 mL in NaCl (PF) 0.9% 10 mL injection (DEFINITY) (1 source) Start: 04-15-2022 End: 07-15-2023 perflutren lipid microspheres 1.3 mL in NaCl (PF) 0.9% 10 mL injection (DEFINITY) Promethazine (2 sources) Phenothiazine Start: 04-06-2020 promethazine ( PHENERGAN) tablet 12.5 mg Start: 02-20-2020 promethazine ( PHENERGAN) tablet 12.5 mg Roflumilast (20 sources) Phosphodiesterase 4 Inhibitor Start: 03-30-2024 take 1 tablet by mouth once daily Roflumilast 500 mcg tablet Active 500 ug PO DAILY March 30, 2024 1:00am Start: 03-23-2024 End: 07-21-2024 take 1 tablet by mouth once daily roflumilast (DALIRESP) 500 mcg tab Indications: COPD, frequent exacerbations (HCC) Take 1 tablet by mouth once daily. 30 tablet 3 03/23/2024 Active sennosides, long term 8.6 mg oral tablet (1 source) Start: 03-01-2020 End: 03-31-2020 senna (SENOKOT) 8.6 MG table t Take 1 tablet by mouth 2 times daily Can reduce once bowel pattern is regular 60 tablet 0 03/01/2020 03/31/2020 Active 125 ml sodium chloride 9 mg/ ml prefilled syringe (6 sources) Start: 04-15-2022 End: 07-15-2023 sodium chloride 0.9 % (flush ) 10 mL (BD POSIFLUSH) Start: 04-06-2020 10 mL, Intrave nous, EVERY 12 HOURS SCHEDULED (2 times per day), First dose on Thu04/06/20 at 0900 Start: 04-06-2020 take 10 mL intraveno us route once as needed 10 mL, Intravenous, PRN, Line Care, After every IV line use, Starting Thu04/06/20 at 0437 Start: 02-20-2020 10 mL, Intrave nous, EVERY 12 HOURS SCHEDULED (2 times per day), First dose on Thu02/20/20 at 2100 Start: 02-20-2020 take 10 mL intravenous route o nce 10 mL, Intravenous, PRN, Line Care, Starting Thu02/20/20 at 1438 After every IV line use Start: 02-20-2020 End: 02-20-2020 0.9 % sodium chloride infusi on sulfamethoxazole 800 mg / trimethoprim 160 mg oral tablet (6 sources) Dihydrofolate Reductase Inhibitor Antibacterial, Sulfonamide Antimicrobial Start: 06-15-2024 tamsulosin hydrochloride 0.4 mg oral capsule (20 sources) alpha-Adrenergic Konrad Start: 02-20-2020 Comment on above: Take 0.4 mg by mouth once daily. 10 actuat tiotropium 0.0025 mg/actuat inhalation spray (20 sources) Anticholinergic Start: 09-21-2023 End: 08-07-2024 take 2 puff(s) by inhalation once daily SPIRIVA RESPIMAT 2.5 mcg/actuation inhaler Inhale 2 puffs as instructed once daily. 1 each 11 08/08/2024 Active Start: 03-25-2023 take 2.5 ug by inhal ation once daily Tiotropium [place] (Spiriva Respimat) 2.5 mcg/actuation mist Active 2 NMA INHALATION DAILY March 25, 2023 1:00am USES AROUND NOON Start: 03-25-2023 take 1 puff(s) by in halation once daily Tiotropium [place] (Spiriva Respimat) 2.5 mcg/actuation mist Active 2 PUFF INHALATION DAILY March 25, 2023 1:00am USES AROUND NOON Start: 11-18-2022 End: 09-16-2023 take 2 puff(s) by inhalation once daily SPIRIVA RESPIMAT 2.5 mcg/actuation inhaler Inhale 2 Puffs as instructed once daily. 1 Each 5 06/03/2023 09/16/2023 Discontinued Start: 02-07-2021 End: 03-25-2023 Start: 02-07-2021 End: 03-25-2023 take 2.5 ug by inhalation every twenty-four hours Tiotropium [place] (Spiriva Respimat) 2.5 mcg/actuation mist Discontinued 2 NMA INHALATION Q24H 4 April 14, 2022 8:54am March 25, 2023 4:04pm administer at approximately the same time(s) each day Start: 02-07-2021 End: 03-25-2023 take 1 puff(s) by inhalation every twenty-four hours Tiotropium [place] (Spiriva Respimat) 2.5 mcg/actuation mist Discontinued 2 PUFF INHALATION Q24H 4 April 14, 2022 8:54am March 25, 2023 4:04pm administer at approximately the same time(s) each day Start: 10-12-2020 End: 02-07-2021 Start: 10-12-2020 End: 02-07-2021 take 2.5 ug by inhalation every twenty-four hours Tiotropium [place] (Spiriva Respimat) 2.5 mcg/actuation mist Discontinued 2 NMA INHALATION Q24H October 12, 2020 12:05pm February 07, 2021 12:08pm administer at approximately the same time(s) each day Start: 10-12-2020 End: 02-07-2021 take 1 puff(s) by inhalation every twenty-four hours Tiotropium [place] (Spiriva Respimat) 2.5 mcg/actuation mist Discontinued 2 PUFF INHALATION Q24H October 12, 2020 11:05am February 07, 2021 11:08am administer at approximately the same time(s) each day Start: 10-12-2020 End: 02-07-2021 take 1 puff(s) by inhalation every twenty-four hours Tiotropium [place] (Spiriva Respimat) 2.5 mcg/actuation mist Discontinued 2 PUFF INHALATION Q24H October 12, 2020 12:05pm February 07, 2021 12:08pm administer at approximately the same time(s) each day Start: 04-06-2020 tiotropium (SP IRIVA) inhalation capsule 18 mcg Start: 01-12-2020 SPIRIVA RESPIM AT 2.5 MCG/ACT AERS inhaler INAHLE 2 INHALATION EVERY 24 HOURS ADMINISTER AT APPROXIMATELY THE SAME TIME(S) EACH DAY 0 01/12/2020 Active Start: 01-10-2020 End: 10-12-2020 Start: 01-10-2020 End: 10-12-2020 take 2.5 ug by inhalation every twenty-four hours Tiotropium [place] (Spiriva Respimat) 2.5 mcg/actuation mist Discontinued 2 NMA INHALATION Q24H July 09, 2020 3:40pm October 12, 2020 12:07pm administer at approximately the same time(s) each day Start: 01-10-2020 End: 10-12-2020 take 1 puff(s) by inhalation every twenty-four hours Tiotropium [place] (Spiriva Respimat) 2.5 mcg/actuation mist Discontinued 2 PUFF INHALATION Q24H July 09, 2020 3:40pm October 12, 2020 12:07pm administer at approximately the same time(s) each day Start: 05-25-2019 End: 01-10-2020 Start: 05-25-2019 End: 01-10-2020 take 2.5 ug by inhalation every twenty-four hours Tiotropium [place] (Spiriva Respimat) 2.5 mcg/actuation mist Discontinued 2 NMA INHALATION Q24H May 25, 2019 8:41am January 10, 2020 12:47pm administer at approximately the same time(s) each day Start: 05-25-2019 End: 01-10-2020 take 1 puff(s) by inhalation every twenty-four hours Tiotropium [place] (Spiriva Respimat) 2.5 mcg/actuation mist Discontinued 2 PUFF INHALATION Q24H May 25, 2019 7:41am January 10, 2020 11:47am administer at approximately the same time(s) each day Start: 05-25-2019 End: 01-10-2020 take 1 puff(s) by inhalation every twenty-four hours Tiotropium [place] (Spiriva Respimat) 2.5 mcg/actuation mist Discontinued 2 PUFF INHALATION Q24H May 25, 2019 8:41am January 10, 2020 12:47pm administer at approximately the same time(s) each day Start: 09-21-2018 End: 05-25-2019 Start: 09-21-2018 End: 05-25-2019 take 2.5 ug by inhalation every twenty-four hours Tiotropium [place] (Spiriva Respimat) 2.5 mcg/actuation mist Discontinued 2 NMA INHALATION Q24H September 21, 2018 1:57pm May 25, 2019 8:41am administer at approximately the same time(s) each day Start: 09-21-2018 End: 05-25-2019 take 1 puff(s) by inhalation every twenty-four hours Tiotropium [place] (Spiriva Respimat) 2.5 mcg/actuation mist Discontinued 2 PUFF INHALATION Q24H September 21, 2018 12:57pm May 25, 2019 7:41am administer at approximately the same time(s) each day Start: 09-21-2018 End: 05-25-2019 take 1 puff(s) by inhalation every twenty-four hours Tiotropium [place] (Spiriva Respimat) 2.5 mcg/actuation mist Discontinued 2 PUFF INHALATION Q24H September 21, 2018 1:57pm May 25, 2019 8:41am administer at approximately the same time(s) each day Start: 02-03-2018 End: 09-21-2018 Start: 02-03-2018 End: 09-21-2018 take 2.5 ug by inhalation every twenty-four hours Tiotropium [place] (Spiriva Respimat) 2.5 mcg/actuation mist Discontinued 2 NMA INHALATION Q24H February 03, 2018 3:25pm September 21, 2018 1:58pm administer at approximately the same time(s) each day Start: 02-03-2018 End: 09-21-2018 take 1 puff(s) by inhalation every twenty-four hours Tiotropium [place] (Spiriva Respimat) 2.5 mcg/actuation mist Discontinued 2 PUFF INHALATION Q24H February 03, 2018 2:25pm September 21, 2018 12:58pm administer at approximately the same time(s) each day Start: 02-03-2018 End: 09-21-2018 take 1 puff(s) by inhalation every twenty-four hours Tiotropium [place] (Spiriva Respimat) 2.5 mcg/actuation mist Discontinued 2 PUFF INHALATION Q24H February 03, 2018 3:25pm September 21, 2018 1:58pm administer at approximately the same time(s) each day Start: 04-09-2017 End: 12-19-2022 take 1 capsule by inhalation once daily tiotropium (SPIRIVA WITH HANDIHALER) 18 mcg inhalation capsule Indications: Chronic obstructive pulmonary disease, unspecified COPD type (HCC) Inhale 1 capsule as instructed once daily. Use with handihaler. 04/09/2017 11/16/2022 Discontinued Start: 04-08-2017 End: 02-03-2018 Start: 04-08-2017 End: 02-03-2018 take 2.5 ug by inhalation every twenty-four hours Tiotropium [place] (Spiriva Respimat) 2.5 mcg/actuation mist Discontinued 2 NMA INHALATION Q24H April 08, 2017 1:00am February 03, 2018 3:25pm administer at approximately the same time(s) each day Start: 04-08-2017 End: 02-03-2018 take 1 puff(s) by inhalation every twenty-four hours Tiotropium [place] (Spiriva Respimat) 2.5 mcg/actuation mist Discontinued 2 PUFF INHALATION Q24H April 08, 2017 12:00am February 03, 2018 2:25pm administer at approximately the same time(s) each day Start: 04-08-2017 End: 02-03-2018 take 1 puff(s) by inhalation every twenty-four hours Tiotropium [place] (Spiriva Respimat) 2.5 mcg/actuation mist Discontinued 2 PUFF INHALATION Q24H April 08, 2017 1:00am February 03, 2018 3:25pm administer at approximately the same time(s) each day take 2 puff(s) by in halation once daily tiotropium (Spiriva Respimat) 2.5 MCG/ACT inhaler Inhale 2 puffs daily. 0 Active Comment on above: Inhale 1 capsule as instructed once daily. Use with handihaler. Inhale 2 Puffs as in structed once daily. traMADol hydrochloride 50 mg oral tablet (12 sources) Opioid Agonist Start: 0 End: 1 take 1 tablet by mouth every four hours as needed for pain, then take 1 tablet by mouth as needed for pain traMADol (ULTRAM) 50 MG tablet Indications: Lung nodule Take 1 tablet by mouth every 4 hours as needed for Pain for up to 7 days. Intended supply: 7 days. Take lowest dose possible to manage pain 42 tablet 0 03/01/2020 03/08/2020 Active End: 09-04-2021 take 1 tablet by mouth every six hours as needed traMADol (ULTRAM) 50 mg tablet Take 50 mg by mouth every 6 hours as needed. 09/04/2021 Discontinued Comment on above: Take 50 mg by mouth every 6 hours as needed. Completed/Discontinued Medications Medication Drug Class(es) Dates Sig (Normalized) Sig (Original) acetaminophen 325 mg oral tablet (20 sources) Start: 08-13-2020 End: 10-23-2023 Start: 04-06-2020 acetaminophen (TYLENOL) tablet 650 mg Start: 02-20-2020 End: 02-20-2020 take 1 dose by mouth three times daily 1,000 mg, Oral, EVERY 8 HOURS SCHEDULED (3 times per day), First dose on 02/20/20 at 1500 Maximum dose of acetaminophen is 4000 mg from all sources in 24 hours. take 2 capsules by m outh every eight hours as needed acetaminophen 325 mg cap Take 650 mg by mouth every 8 hours as needed. Active take 2 tablets by mo uth every six hours as needed for pain acetaminophen (Tylenol Extra Strength) 500 MG tablet Take 1,000 mg by mouth every 6 hours as needed for mild pain (1-3). 0 Active Comment on above: Take 650 mg by mouth . Take 650 mg by mouth every 8 hours as needed. amoxicillin 875 mg / clavulanate 125 mg oral tablet (20 sources) Penicillin-class Antibacterial Start: 05-24-2024 End: 06-05-2024 Start: 05-24-2024 Amoxicillin-Po t Clavulanate 875-125 mg tablet Active 1 {tbl} PO TWICE A DAY May 24, 2024 12:00am Start: 12-08-2023 End: 12-15-2023 amoxicillin-clavulanate pota ssium (AUGMENTIN) 875-125 mg per tablet Take 1 tablet by mouth two times a day for 7 days. FOR 7 DAYS. 14 tablet 12/08/2023 12/15/2023 Discontinued (Course of therapy completed) Start: 09-30-2023 End: 10-17-2023 Start: 09-30-2023 End: 10-17-2023 Amoxicillin-Pot Clavulanate 875-125 mg tablet Discontinued 1 {tbl} PO TWICE A DAY September 30, 2023 12:00am October 17, 2023 11:55am Start: 08-17-2020 End: 02-07-2021 Start: 08-17-2020 End: 02-07-2021 Amoxicillin-Pot Clavulanate (Augmentin) 875-125 mg tablet Discontinued 1 {tbl} PO TWICE A DAY August 17, 2020 12:00am February 07, 2021 11:40am Start: 07-24-2020 End: 08-10-2020 Start: 07-24-2020 End: 08-10-2020 Amoxicillin-Pot Clavulanate (Augmentin) 875-125 mg tablet Discontinued 1 {tbl} PO TWICE A DAY July 24, 2020 12:00am August 10, 2020 1:18pm Start: 10-16-2017 End: 11-24-2017 Start: 10-16-2017 End: 11-24-2017 Amoxicillin-Pot Clavulanate (Augmentin) 875-125 mg tablet Discontinued 1 {tbl} PO TWICE A DAY October 30, 2017 2:01pm November 24, 2017 10:13am azithromycin 250 mg oral tab let (20 sources) Macrolide Antimicrobial Start: 07-12-2020 End: 08-01-2020 Start: 08-27-2017 End: 09-11-2017 bisacodyl 10 mg rectal suppository (1 source) Stimulant Laxative Start: 02-24-2020 End: 02-24-2020 bisacodyl (DULCOLAX) suppository 10 mg Budesonide-Formoterol (20 sources) Corticosteroid, beta2-Adrenergic Agonist Start: 11-19-2021 End: 04-14-2022 Start: 11-19-2021 End: 04-14-2022 Budesonide-Formoterol (Symbi guadalupe) 160-4.5 mcg/actuation HFA aerosol inhaler Discontinued 2 NMA INHALATION TWICE A DAY 10.2 November 19, 2021 3:26pm April 14, 2022 10:57am Start: 11-19-2021 End: 04-14-2022 take 1 puff(s) by inhalation twice daily Budesonide-Formoterol (Symbicort) 160-4.5 mcg/actuation HFA aerosol inhaler Discontinued 2 PUFF INHALATION TWICE A DAY 10.2 November 19, 2021 3:26pm April 14, 2022 10:57am Start: 11-19-2021 End: 04-14-2022 take 1 puff(s) by inhalation twice daily Budesonide-Formoterol (Symbicort) 160-4.5 mcg/actuation HFA aerosol inhaler Discontinued 2 PUFF INHALATION TWICE A DAY 10.2 November 19, 2021 2:26pm April 14, 2022 9:57am Start: 11-19-2021 take 1 puff(s) by in halation twice daily Budesonide-Formoterol (Symbicort) 160-4.5 mcg/actuation HFA aerosol inhaler Active 2 PUFF INHALATION TWICE A DAY 10.2 November 19, 2021 2:26pm Start: 11-19-2021 take 1 puff(s) by in halation twice daily Budesonide-Formoterol (Symbicort) 160-4.5 mcg/actuation HFA aerosol inhaler Active 2 PUFF INHALATION TWICE A DAY 10.2 November 19, 2021 3:26pm Start: 03-29-2021 End: 11-19-2021 Start: 03-29-2021 End: 11-19-2021 Budesonide-Formoterol (Symbi guadalupe) 160-4.5 mcg/actuation HFA aerosol inhaler Discontinued 2 NMA INHALATION TWICE A DAY 10.2 March 29, 2021 4:12pm November 19, 2021 3:26pm Start: 03-29-2021 End: 11-19-2021 take 1 puff(s) by inhalation twice daily Budesonide-Formoterol (Symbicort) 160-4.5 mcg/actuation HFA aerosol inhaler Discontinued 2 PUFF INHALATION TWICE A DAY 10.2 March 29, 2021 3:12pm November 19, 2021 2:26pm Start: 03-29-2021 End: 11-19-2021 take 1 puff(s) by inhalation twice daily Budesonide-Formoterol (Symbicort) 160-4.5 mcg/actuation HFA aerosol inhaler Discontinued 2 PUFF INHALATION TWICE A DAY 10.2 March 29, 2021 4:12pm November 19, 2021 3:26pm Start: 03-29-2021 take 1 puff(s) by in halation twice daily Budesonide-Formoterol (Symbicort) 160-4.5 mcg/actuation HFA aerosol inhaler Active 2 PUFF INHALATION TWICE A DAY 10.2 March 29, 2021 4:12pm Start: 02-10-2021 End: 10-13-2022 take 2 puff(s) by inhalation twice daily budesonide-formoterol (SYMBICORT) 160-4.5 mcg/actuation inhaler Inhale 2 Puffs as instructed twice daily. 0 02/10/2021 10/13/2022 Discontinued (Not on Formulary) Start: 02-10-2021 take 2 puff(s) by in halation twice daily budesonide-formoterol (SYMBICORT) 160-4.5 mcg/actuation inhaler Inhale 2 Puffs as instructed twice daily. 0 02/10/2021 Active Start: 02-07-2021 End: 03-29-2021 Start: 02-07-2021 End: 03-29-2021 Budesonide-Formoterol (Symbi guadalupe) 160-4.5 mcg/actuation HFA aerosol inhaler Discontinued 2 NMA INHALATION TWICE A DAY 10.2 February 07, 2021 1:00am March 29, 2021 4:13pm Start: 02-07-2021 End: 03-29-2021 take 1 puff(s) by inhalation twice daily Budesonide-Formoterol (Symbicort) 160-4.5 mcg/actuation HFA aerosol inhaler Discontinued 2 PUFF INHALATION TWICE A DAY 10.2 February 07, 2021 12:00am March 29, 2021 3:13pm Start: 02-07-2021 End: 03-29-2021 take 1 puff(s) by inhalation twice daily Budesonide-Formoterol (Symbicort) 160-4.5 mcg/actuation HFA aerosol inhaler Discontinued 2 PUFF INHALATION TWICE A DAY 10.2 February 07, 2021 1:00am March 29, 2021 4:13pm Start: 07-14-2016 End: 08-27-2017 Start: 07-14-2016 End: 08-27-2017 Budesonide-Formoterol 160-4. 5 mcg/actuation HFA aerosol inhaler Discontinued 2 NMA INHALATION DAILY 10.2 May 28, 2017 3:40pm August 27, 2017 1:29pm Start: 07-14-2016 End: 08-27-2017 take 1 puff(s) by inhalation once daily Budesonide-Formoterol Discontinued 2 PUFF INHALATION DAILY 10.2 May 28, 2017 3:40pm August 27, 2017 1:29pm Comment on above: Inhale 2 Puffs as in structed twice daily. calcium chloride 0.0014 meq/ml / potassium chloride 0.004 meq/ml / sodium chloride 0.103 meq/ml / sodium lactate 0.028 meq/ml injectable solution (1 source) Start: 02-20-2020 End: 02-21-2020 Intravenous, at 75 mL/hr, CONTINUOUS, Starting 02/20/20 at 1500, For 12 hours, Post-op ceFAZolin 2000 mg injection (2 sources) Cephalosporin Antibacterial Start: 02-20-2020 End: 02-20-2020 ceFAZolin (ANCEF) 2 g in dextrose 4 % 100 mL IVPB (premix) Start: 02-20-2020 End: 02-20-2020 ceFAZolin (ANCEF) 1 g in dex trose 5 % 50 mL IVPB (premix) celecoxib 200 mg oral capsule (1 source) Nonsteroidal Anti-inflammatory Drug Start: 02-20-2020 End: 02-20-2020 celecoxib (CELEBREX) capsule 200 mg Start: 02-20-2020 End: 02-20-2020 celecoxib (CELEBREX) capsule 200 mg cephalexin 500 mg oral capsule (20 sources) Cephalosporin Antibacterial Start: 11-19-2023 End: 11-24-2023 take 1 capsule by mouth four times daily cephALEXin (KEFLEX) 500 mg capsule Take 1 capsule by mouth four times daily for 5 days. 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 21 capsule 0 03/19/2022 04/30/2022 Discontinued Start: 01-25-2022 End: 02-05-2022 Start: 01-25-2022 End: 02-05-2022 take 1 capsule by mouth every six hours Cephalexin 500 mg capsule Discontinued 500 mg PO EVERY 6 HOURS 40 January 25, 2022 1:00am February 05, 2022 11:51am Start: 01-21-2020 End: 01-24-2020 Comment on above: Take 1 capsule by mo cox branson three times daily. clopidogrel 75 mg oral tablet (20 sources) P2Y12 Platelet Inhibitor Start: 04-19-19 End: 05-28-19 Comment on above: Take 1 tablet by raymond th once daily. cycloSPORINE 0.5 mg/ml ophthalmic suspension (17 sources) Calcineurin Inhibitor Immunosuppressant Start: 03-18-19 End: 07-02-19 take 1 drop(s) into the eye(s) twice daily RESTASIS 0.05 % ophthalmic emulsion Use 1 Drop in both eyes two times a day. 03/18/2024 07/01/2024 Discontinued (Course of therapy completed) enteric contrast (will be provided with radiology test) (2 sources) Start: 11-20-19 End: 11-21-19 enteric contrast (will be provided with radiology test) Indications: Malignant neoplasm of unspecified part of unspecified bronchus or lung (HCC) For CT CHESTABD/PEL W IVCON Routine order Administer, As Directed One Time Only, via Oral, Rectal, both Oral and Rectal, Enteric Tube, Stoma or Indwelling Catheter, Enteric Contrast as designated per enteric contrast guidelines 1 Each 0 11/19/2021 11/20/2021 Start: 11-19-2021 End: 11-20-2021 enteric contrast (will be pr ovided with radiology test) Indications: Malignant neoplasm of unspecified part of unspecified bronchus or lung (HCC) For CT CHESTABD/PEL W IVCON Routine order Administer, As Directed One Time Only, via Oral, Rectal, both Oral and Rectal, Enteric Tube, Stoma or Indwelling Catheter, Enteric Contrast as designated per enteric contrast guidelines 1 Each 0 11/19/2021 11/20/2021 Active Comment on above: For CT CHESTABD/PEL W IVCON Routine order Administer, As Directed One Time Only, via Oral, Rectal, both Oral and Rectal, Enteric Tube, Stoma or Indwelling Catheter, Enteric Contrast as designated per enteric contrast guidelines famotidine 20 mg oral tablet (1 source) Histamine-2 Receptor Antagonist Start: 02-20-2020 End: 02-20-2020 famotidine (PEPCID) tablet 20 mg Start: 02-20-2020 End: 02-20-2020 famotidine (PEPCID) tablet 2 0 mg fluconazole 100 mg oral tabl et (20 sources) Azole Antifungal Start: 05-22-2024 End: 05-23-2024 Start: 11-06-2023 End: 02-22-2024 Start: 09-30-2023 End: 10-17-2023 fluorometholone 1 mg/ml opht halmic suspension (12 sources) Corticosteroid Start: 02-21-2024 End: 05-22-2024 fluticasone propionate 0.05 mg/actuat metered dose nasal spray (20 sources) Corticosteroid Start: 08-27-2017 End: 05-26-2018 Start: 08-27-2017 End: 05-26-2018 Fluticasone Propionate 50 mc g/actuation spray,suspension Discontinued 2 NMA INTRANASAL DAILY August 27, 2017 12:00am May 26, 2018 9:19am Start: 08-27-2017 End: 05-26-2018 Fluticasone Propionate Disco ntinued 2 SPRAY INTRANASAL DAILY August 27, 2017 12:00am May 26, 2018 9:19am Cjizfnpiidj-Xpqryomrk-Cfjxju er (16 sources) Anticholinergic, Corticosteroid, beta2-Adrenergic Agonist Start: 09-28-2023 End: 10-05-2023 Start: 09-28-2023 End: 10-05-2023 Qzxamuemorn-Xnqwiytae-Cxfizh er (Trelegy Ellipta) 100-62.5-25 mcg blister with device Discontinued 1 NMA INHALATION DAILY September 28, 2023 12:00am October 05, 2023 6:40pm Start: 09-16-2023 End: 09-21-2023 take 1 puff(s) by inhalation once daily zhgxrkfirgu-ggywumrsz-pfuajqsu (TRELEGY ELLIPTA) 100-62.5-25 mcg inhalation powder Indications: 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) Inhale 1 Puff as instructed once daily. 1 Each 09/16/2023 09/21/2023 Discontinued (Discontinued by Patient) 120 actuat formoterol fumarate 0.005 mg/actuat / mometasone furoate 0.2 mg/actuat metered dose inhaler (20 sources) Corticosteroid, beta2-Adrenergic Agonist Start: 02-20-2020 take 1 puff(s) by inhalation twice daily 1 puff, Inhalation, 2 TIMES DAILY, First dose on 02/20/20 at 2000 Rinse mouth out with water (without swallowing) after every dose. Start: 01-16-2020 DULERA 200-5 M CG/ACT inhaler Inhale 200 mcg into the lungs 0 01/16/2020 Active Start: 08-23-2017 End: 10-13-2022 take 2 puff(s) by mouth twice daily DULERA 200-5 mcg/actuation inhaler Take 2 Puffs by mouth twice daily. 08/23/2017 10/13/2022 Discontinued (Not on Formulary) Start: 07-28-2017 End: 02-07-2021 Start: 07-28-2017 End: 02-07-2021 Mometasone-Formoterol (Duler a) 200-5 mcg/actuation HFA aerosol inhaler Discontinued 2 NMA INHALATION TWICE A DAY January 14, 2021 3:27pm February 07, 2021 12:07pm Start: 07-28-2017 End: 02-07-2021 take 1 puff(s) by inhalation twice daily Mometasone-Formoterol (Dulera) 200-5 mcg/actuation HFA aerosol inhaler Discontinued 2 PUFF INHALATION TWICE A DAY January 14, 2021 3:27pm February 07, 2021 12:07pm Comment on above: Take 2 Puffs by mout h twice daily. gabapentin 100 mg oral capsule (20 sources) Anti-epileptic Agent Start: 05-28-2021 End: 04-30-2022 take 1 capsule by mouth three times daily gabapentin (NEURONTIN) 100 mg capsule Take 1 capsule by mouth three times daily for 90 days. 90 capsule 2 05/28/2021 04/30/2022 Discontinued Start: 02-20-2020 End: 02-20-2020 gabapentin (NEURONTIN) capsu le 100 mg Comment on above: Take 1 capsule by mo ut three times daily for 90 days. 500 ml glucose 50 mg/ml / potassium chloride 0.02 meq/ml / sodium chloride 4.5 mg/ml injection (1 source) Start: 02-24-2020 End: 02-25-2020 dextrose 5 % and 0.45 % NaCl with KCl 20 mEq infusion 12 hr guaiFENesin 1200 mg / pseudoephedrine hydrochloride 120 mg extended release oral tablet (20 sources) alpha-Adrenergic Agonist Start: 03-27-2023 End: 05-28-2023 Start: 03-27-2023 End: 05-28-2023 Pseudoephedrine-Guaifenesin (Mucus D) 120-1,200 mg tablet extended release 12 hr Discontinued 1 {tbl} PO Q12H 14 7 March 27, 2023 1:00am May 28, 2023 3:50pm Start: 04-03-2017 End: 03-19-2020 Start: 04-03-2017 End: 04-14-2023 take 120-1200 mg by mouth every twelve hours Pseudoephedrine-Guaifenesin (Mucinex D Maximum Strength) 120-1,200 mg tablet extended release 12 hr Discontinued 1 {tbl} PO Q12H April 03, 2017 1:00am March 19, 2020 10:10am Comment on above: Take by mouth. 1 ml HYDROmorphone hydrochloride 1 mg/ml cartridge (2 sources) Opioid Agonist Start: 02-20-2020 End: 02-20-2020 HYDROmorphone (DILAUDID) 1 MG/ML injection Start: 02-20-2020 End: 02-20-2020 HYDROmorphone (DILAUDID) inj ection 0.5 mg HYDROmorphone (DILAUDID) 30 mg in sodium chloride 0.9 % 30 mL CARE MANAGER CNA (1 source) Start: 02-20-2020 End: 02-25-2020 HYDROmorphone (DILAUDID) 30 mg in sodium chloride 0.9 % 30 mL CARE MANAGER CNA 10 ml iron sucrose 20 mg/ml injection (4 sources) Parenteral Iron Replacement Start: 07-01-2024 End: 07-01-2024 200 mg, INTRAVENOUS, ONCE, 1 dose, On Thu07/01/24 at 1530, Please conduct a 30 minute post dose observation. Start: 06-29-2024 End: 06-29-2024 200 mg, INTRAVENOUS, ONCE, 1 dose, On Thu06/29/24 at 1530, Please conduct a 30 minute post dose observation. Start: 06-27-2024 End: 06-27-2024 200 mg, INTRAVENOUS, ONCE, 1 dose, On Thu06/27/24 at 1430, Please conduct a 30 minute post dose observation. Start: 06-21-2024 End: 06-21-2024 200 mg, INTRAVENOUS, ONCE, 1 dose, On Tu06/21/24 at 1330, Please conduct a 30 minute post dose observation. 200 actuat levalbuterol 0.04 5 mg/actuat metered dose inhaler (20 sources) beta2-Adrenergic Agonist Start: 09-28-2023 End: 02-20-2024 Start: 09-28-2023 End: 02-20-2024 Levalbuterol Tartrate 45 mcg /actuation HFA aerosol inhaler Discontinued 2 NMA INHALATION EVERY 4 HOURS NEEDED as needed for wheezing September 28, 2023 12:00am February 20, 2024 3:06am Start: 07-25-2022 End: 05-28-2023 Start: 07-25-2022 End: 05-28-2023 Levalbuterol Tartrate 45 mcg /actuation HFA aerosol inhaler Discontinued 2 NMA INHALATION Q4H as needed for shortness of breath or wheezing July 25, 2022 12:00am May 28, 2023 3:50pm Start: 07-25-2022 End: 05-28-2023 Levalbuterol Tartrate Discon tinued 2 INH INHALATION Q4H July 25, 2022 12:00am May 28, 2023 3:50pm levoFLOXacin 750 mg oral tablet (20 sources) Quinolone Antimicrobial Start: 12-08-2023 End: 12-15-2023 take 1 tablet by mouth once daily levoFLOXacin (LEVAQUIN) 750 mg tablet Take 1 tablet by mouth once daily. 14 tablet 12/08/2023 12/15/2023 Discontinued (Course of therapy completed) Start: 10-17-2023 End: 10-23-2023 Start: 03-25-2023 End: 03-27-2023 Start: 09-12-2020 End: 09-16-2020 Start: 09-12-2020 End: 09-16-2020 take 1 tablet by mouth every twenty-four hours Levofloxacin 750 mg tablet Discontinued 750 mg PO Q24H 4 September 12, 2020 12:00am September 15, 2020 12:00am September 16, 2020 12:01am Start: 08-31-2020 End: 09-10-2020 Start: 08-31-2020 End: 09-10-2020 take 1 tablet by mouth every twenty-four hours Levofloxacin 750 mg tablet Discontinued 750 mg PO Q24H 10 August 31, 2020 12:00am September 09, 2020 12:00am September 10, 2020 12:01am Start: 08-01-2020 End: 08-08-2020 Start: 08-01-2020 End: 08-08-2020 take 1 tablet by mouth every twenty-four hours Levofloxacin 750 mg tablet Discontinued 750 mg PO Q24H 7 August 01, 2020 12:00am August 07, 2020 12:00am August 08, 2020 12:01am Start: 05-10-2018 End: 10-05-2018 Start: 03-05-2018 End: 03-12-2018 take 1 tablet by mouth every twenty-four hours Levofloxacin (Levaquin) 750 mg tablet Discontinued 750 mg PO Q24H 7 March 05, 2018 1:00am March 11, 2018 1:00am March 12, 2018 1:11am Start: 01-29-2018 End: 02-03-2018 Start: 01-29-2018 End: 02-03-2018 take 1 tablet by mouth every twenty-four hours Levofloxacin (Levaquin) 500 mg tablet Discontinued 500 mg PO Q24H 5 January 29, 2018 1:00am February 02, 2018 1:00am February 03, 2018 1:06am Start: 12-15-2017 End: 04-06-2018 lidocaine 0.04 mg/mg medicated patch (18 sources) Antiarrhythmic, Amide Local Anesthetic Start: 03-25-2023 End: 09-28-2023 Start: 02-24-2020 lidocaine 4 % external patch 2 patch Mometasone-Formoterol (Duler a) 200-5 mcg/actuation HFA aerosol inhaler (11 sources) Start: 04-14-2022 End: 04-14-2022 Mometasone-Formoterol (Duler a) 200-5 mcg/actuation HFA aerosol inhaler Discontinued 2 NMA INHALATION TWICE A DAY April 14, 2022 1:00am April 14, 2022 2:31pm Start: 04-14-2022 End: 04-14-2022 take 1 puff(s) by inhalation twice daily Mometasone-Formoterol (Dulera) 200-5 mcg/actuation HFA aerosol inhaler Discontinued 2 PUFF INHALATION TWICE A DAY April 14, 2022 1:00am April 14, 2022 2:31pm Start: 04-14-2022 End: 04-14-2022 take 1 puff(s) by inhalation twice daily Mometasone-Formoterol (Dulera) 200-5 mcg/actuation HFA aerosol inhaler Discontinued 2 PUFF INHALATION TWICE A DAY April 14, 2022 12:00am April 14, 2022 1:31pm montelukast 10 mg oral table t (20 sources) Leukotriene Receptor Antagonist Start: 09-11-2017 End: 11-24-2017 nystatin 442245 unt/ml oral suspension (20 sources) Polyene Antifungal Start: 08-12-2017 End: 08-27-2017 Start: 08-12-2017 End: 08-27-2017 Nystatin 100,000 unit/mL kavon pension Discontinued 5 mL MUCOUS MEM THREE TIMES A DAY 250 August 12, 2017 12:00am August 27, 2017 1:31pm swish and swallow 5 cc three times per day for 10 days Start: 08-12-2017 End: 08-27-2017 Nystatin Discontinued 5 ML M UCOUS MEM THREE TIMES A DAY August 12, 2017 12:00am August 27, 2017 1:31pm swish and swallow 5 cc three times per day for 10 days polyethylene glycol 3350 170 00 mg powder for oral solution (20 sources) Osmotic Laxative Start: 07-09-2020 End: 10-23-2023 Start: 07-09-2020 Polyethylene G lycol 3350 (Miralax) 17 gram Powder In Packet Active 17 GM PO TWICE A DAY July 08, 2020 11:00pm Start: 04-06-2020 17 g, Oral, DA SHELIA, First dose on Thu04/06/20 at 1999 Start: 02-23-2020 End: 03-31-2020 take 17 g by mouth once daily, then take 17 g by mouth once polyethylene glycol (GLYCOLAX) 17 GM/SCOOP powder Take 17 g by mouth daily Can reduce once bowel pattern is regular 510 g 0 03/01/2020 03/31/2020 Active predniSONE 10 mg oral tablet (20 sources) Start: 05-22-2024 End: 06-05-2024 Start: 02-22-2024 End: 05-22-2024 Start: 02-08-2024 End: 07-01-2024 take 1 tablet by mouth once daily predniSONE (DELTASONE) 10 mg tablet Take 1 tablet by mouth once daily. 30 tablet 5 02/08/2024 07/01/2024 Discontinued Start: 10-23-2023 End: 02-22-2024 Start: 10-23-2023 End: 02-22-2024 Prednisone 10 mg tablet Disc ontinued 0 .ROUTE .COMPLEX 18 9 October 23, 2023 12:00am February 22, 2024 5:39pm 10 mg orally ;3 tablets daily x 3 days, 2 tablets daily x 3 days, 1 tablet daily x 3 days, then stop. Start: 09-30-2023 End: 10-23-2023 Start: 09-30-2023 End: 10-17-2023 take 2 tablets by mouth once daily Prednisone 20 mg tablet Discontinued 40 mg PO DAILY September 30, 2023 12:00am October 17, 2023 12:54pm Start: 09-28-2023 End: 10-06-2023 Start: 2023 End: 01-16-2024 take 1 tablet by mouth once daily Prednisone 10 mg tablet Discontinued 10 mg PO DAILY September 28, 2023 12:00am October 06, 2023 3:43pm Start: 08-31-2020 End: 05-28-2023 take 1 tablet by mouth once daily Prednisone 10 mg tablet Discontinued 10 mg PO daily January 15, 2022 11:13am May 28, 2023 3:50pm Start: 08-24-2020 End: 05-28-2023 Start: 07-12-2020 End: 08-10-2020 Start: 07-12-2020 End: 08-10-2020 take 2 tablets by mouth once daily Prednisone 20 mg tablet Discontinued 40 mg PO DAILY 12 04July 12, 2020 12:00am August 10, 2020 1:18pm Start: 07-12-2020 End: 08-10-2020 take 40 mg by mouth once daily Prednisone Discontinued 40 MG PO DAILY 12 04July 12, 2020 12:00am August 10, 2020 1:18pm Start: 06-13-2020 End: 06-18-2020 Start: 06-13-2020 End: 06-18-2020 take 2 tablets by mouth once daily Prednisone 20 mg tablet Discontinued 40 mg PO DAILY 10 June 13, 2020 12:00am June 17, 2020 12:00am June 18, 2020 12:03am Start: 06-13-2020 End: 06-18-2020 take 40 mg by mouth once daily Prednisone Discontinued 40 MG PO DAILY 10 June 13, 2020 12:00am June 18, 2020 12:03am Start: 04-07-2020 predniSONE (DE LTASONE) 10 MG tablet Prednisone take 40 mg po daily for 1days then take 30 mg p.o. daily for 2 days Then take 20 mg po daily for 2 days Then take 10 mg po daily for 2 days 16 tablet 0 04/07/2020 Active Start: 09-24-2018 End: 07-12-2019 Start: 02-26-2018 End: 09-21-2018 Start: 12-15-2017 End: 05-13-2018 Start: 12-15-2017 End: 05-13-2018 take 2 tablets by mouth once daily Prednisone 20 mg tablet Discontinued 40 mg PO DAILY December 15, 2017 12:00am May 13, 2018 1:05pm Start: 12-15-2017 End: 05-13-2018 take 40 mg by mouth once daily Prednisone Discontinued 40 MG PO DAILY December 15, 2017 12:00am May 13, 2018 1:05pm Start: 10-16-2017 End: 11-24-2017 Start: 08-12-2017 End: 09-11-2017 Start: 03-31-2017 End: 06-17-2017 Start: 03-31-2017 End: 06-17-2017 Prednisone 10 MG tablet Disc ontinued 10 mg PO DIRECTED March 31, 2017 1:00am June 17, 2017 2:13pm TAKE 4 TABLETS BY MOUTH DAILY WITH FOOD FOR 2 DAYS, THEN TAKE 3 TABLETS BY MOUTH DAILY WITH FOOD FOR 3 DAYS, THEN TAKE 2 TABLETS BY MOUTH DAILY WITH FOOD FOR 3 DAYS, THEN TAKE 1 TABLETS BY MOUTH DAILY WITH FOOD FOR 3 DAYS, THEN STOP Comment on above: Take 10 mg by mouth once daily. Take 1 tablet by raymond th once daily. Take 4 daily for thr ee days, then 3 daily for three days, then 2 daily for three days, then one daily for three days. regadenoson 0.4 mg injection (LEXISCAN) (1 source) Start: 04-24-2022 End: 04-24-2022 regadenoson 0.4 mg injection (LEXISCAN) talc 5000 mg topical powder (1 source) Start: 02-25-2020 End: 02-25-2020 talc powder (20 sources) Start: 05-22-2024 End: 06-03-2024 Start: 03-30-2024 Start: 09-28-2023 End: 10-17-2023 Start: 04-14-2022 End: 04-14-2022 Start: 07-09-2020 End: 03-27-2023 Problems Active Problems Problem Classification Problem Date Documented Da te Episodic/Chronic Acute bronchitis (20 sources) Acute bronchitis; Translations: [Acute bronchitis, unspecified] 12-23-2021 Episodic Anxiety disorders (20 sources) Anxiety; Translations: [Anxiety disorder, unspecified] Onset: 8 04-01-2017 Chronic Comment on above: prn med Aortic; peripheral; and visceral artery aneurysms (20 sources) Abdominal aortic aneurysm without rupture; Translations: [Abdominal aortic aneurysm, without rupture] Onset: 9 11-19-2018 Chronic Cancer of bronchus; lung (20 sources) Squamous cell carcinoma of left lung; Translations: [Malignant neoplasm of unspecified part of left bronchus or lung] Onset: 1 11-29-2020 Chronic Cancer of bronchus; lung (20 sources) History of malignant neoplasm of thoracic cavity structure; Translations: [Personal history of other malignant neoplasm of bronchus and lung] Onset: 4 10-13-2022 Episodic Cancer of prostate (20 sources) Malignant tumor of prostate; Translations: [Malignant neoplasm of prostate] Onset: 5 01-31-2015 Chronic Cancer; other respiratory and intrathoracic (1 source) Malignant neoplasm of lower respiratory tract; 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 Cardiac dysrhythmias (13 sources) Multiple premature ventricular complexes; Translations: [Ventricular premature depolarization] Onset: 4 10-07-2023 Chronic Cardiac dysrhythmias (20 sources) ECG: sinus tachycardia; Translations: [Tachycardia, unspecified] 03-25-2023 Episodic Chronic obstructive pulmonary disease and bronchiectasis (20 sources) Chronic obstructive lung disease; Translations: [Chronic obstructive pulmonary disease, unspecified] Onset: 7 11-20-2016 Chronic Comment on above: inhalers Chronic ulcer of skin (20 sources) Pressure ulcer of right heel, unstageable; Translations: [Pressure ulcer, heel] Onset: 3 Chronic Congestive heart failure; nonhypertensive (12 sources) Heart failure with normal ejection fraction; Translations: [Acute diastolic (congestive) heart failure] 10-17-2023 Chronic Coronary atherosclerosis and other heart disease (20 sources) Coronary atherosclerosis; Translations: [Atherosclerotic heart disease of [place] coronary artery without angina pectoris] Onset: 7 Resolved: 0 03-18-2019 Chronic Deficiency and other anemia (20 sources) Iron deficiency anemia due to blood loss; Translations: [Iron deficiency anemia secondary to blood loss (chronic)] Onset: 5 06-21-2024 Chronic Deficiency and other anemia (1 source) Iron deficiency anemia secondary to blood loss (chronic); Translations: [Iron 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 loss] Onset: 5 Chronic Deficiency and other anemia (20 sources) Anemia; Translations: [Anemia, unspecified] 10-17-2023 Episodic Deficiency and other anemia (2 sources) Anemia, unspecified; Translations: [Anemia, unspecified] Onset: 4 Episodic Diabetes mellitus without complication (5 sources) Increased glucose level; Translations: [Other abnormal glucose] Onset: 5 12-19-2022 Episodic Disorders of lipid metabolism (20 sources) Mixed hyperlipidemia; Translations: [Mixed hyperlipidemia] Onset: 0 09-27-2009 Chronic Essential hypertension (20 sources) Essential hypertension; Translations: [Essential (primary) hypertension] Onset: 7 11-20-2016 Chronic Fluid and electrolyte disorders (20 sources) Lactic acidosis; Translations: [Lactic acidosis] 03-25-2023 Episodic Gastrointestinal hemorrhage (20 sources) Chronic peptic ulcer with hemorrhage; Translations: [Chronic or unspecified peptic ulcer, site unspecified, with hemorrhage] Onset: 5 10-17-2023 Chronic Genitourinary symptoms and ill-defined conditions (19 sources) Retention of urine; Translations: [Retention of urine, unspecified] Onset: 0 02-24-2020 Episodic Hyperplasia of prostate (20 sources) Benign prostatic hypertrophy with outflow obstruction; Translations: [Benign prostatic hyperplasia with lower urinary tract symptoms] Onset: 7 11-20-2016 Chronic Malaise and fatigue (13 sources) Asthenia; Translations: [Other malaise] Onset: 5 10-17-2023 Episodic Mood disorders (20 sources) Depressive disorder; Translations: [Depression, unspecified depression type] Onset: 4 Chronic Mood disorders (2 sources) Mood disorders; Translations: [Depression, unspecified depression type] Onset: 5 Nausea and vomiting (2 sources) Nausea; Translations: [Nausea] Onset: 5 07-01-2024 Episodic Noninfectious gastroenteritis (9 sources) Enteritis of small intestine; Translations: [Noninfective gastroenteritis and colitis, unspecified] Onset: 5 06-30-2024 Episodic Nonspecific chest pain (19 sources) Chest wall pain; Translations: [Other chest pain] 11-24-2022 Episodic Other aftercare (4 sources) Post-discharge follow-up; Translations: [Encounter for follow-up examination after completed treatment for conditions other than malignant neoplasm] 04-14-2023 Episodic Other aftercare (1 source) Long-term current use of drug therapy; Translations: [Other [place] [facility]current[facility] drug therapy] 03-23-2024 Episodic Other circulatory disease (20 sources) Peripheral vascular disease; Translations: [Other specified peripheral vascular diseases] 06-01-2024 Chronic Other circulatory disease (2 sources) Other specified peripheral vascular diseases; Translations: [Other specified peripheral vascular diseases] Onset: 5 Chronic Other circulatory disease (2 sources) Abnormal peripheral pulse; Translations: [Other specified symptoms and signs involving the circulatory and respiratory systems] Episodic Other circulatory disease (20 sources) H/O: heart disorder; Translations: [Personal history of other diseases of the circulatory system] 02-02-2022 Episodic Other circulatory disease (7 sources) Personal history of other diseases of the circulatory system; Translations: [Personal history of other diseases of circulatory system] Onset: 5 03-25-2023 Episodic Other circulatory disease (20 sources) History of peripheral vascular disease; Translations: [Personal history of other diseases of the circulatory system] 04-03-2024 Episodic Other circulatory disease (8 sources) Syncope due to orthostatic hypotension; Translations: [Orthostatic hypotension] 06-03-2024 Episodic Other connective tissue disease (1 source) Dysfunction of posterior tibial tendon; Translations: [Posterior tibial tendinitis, unspecified leg] 11-18-2022 Episodic Other diseases of veins and lymphatics (6 sources) Vascular insufficiency; Translations: [Venous insufficiency (chronic) (peripheral)] 12-25-2023 Episodic Other eye disorders (1 source) Other optic atrophy, right eye; Translations: [Temporal pallor of optic disc, right] Onset: 5 Chronic Other gastrointestinal disorders (20 sources) Malabsorption - iron; Translations: [Intestinal malabsorption, unspecified] Onset: 5 06-21-2024 Chronic Other gastrointestinal disorders (1 source) Intestinal malabsorption, unspecified; 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)] Onset: 5 Chronic Other gastrointestinal disorders (12 sources) Occult blood in stools; Translations: [Other fecal abnormalities] 10-08-2023 Episodic Other gastrointestinal disorders (18 sources) Disorder of gastrointestinal tract; Translations: [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] 06-08-2024 Episodic Other lower respiratory disease (20 sources) Dyspnea on exertion; Translations: [Other forms of dyspnea] 07-11-2020 Episodic Other lower respiratory disease (2 sources) Rib pain; Translations: [Pleurodynia] Episodic Other lower respiratory disease (20 sources) Lung mass; Translations: [Other nonspecific abnormal finding of lung field] 01-19-2020 Episodic Other lower respiratory disease (20 sources) History of chronic obstructive airway disease; Translations: [Personal history of other diseases of the respiratory system] 02-02-2022 Episodic Other lower respiratory disease (1 source) Hypoxemia; Translations: [Hypoxemia] 11-07-2022 Episodic Other lower respiratory disease (19 sources) Lesion of lung; Translations: [Other disorders of lung] 11-24-2022 Episodic Other lower respiratory disease (19 sources) Hemoptysis; Translations: [Hemoptysis] 03-25-2023 Episodic Other lower respiratory disease (17 sources) Cavitation of lung; Translations: [Other disorders of lung] 03-25-2023 Episodic Other lower respiratory disease (3 sources) Multiple nodules of lung; Translations: [Other nonspecific abnormal finding of lung field] 08-24-2023 Episodic Other lower respiratory disease (12 sources) Single lobe lung infiltrate; Translations: [Other nonspecific abnormal finding of lung field] 05-22-2024 Episodic Other lower respiratory disease (20 sources) Hypoxia; Translations: [Hypoxemia] 02-19-2024 Episodic Other lower respiratory disease (12 sources) Acute respiratory distress; Translations: [Acute respiratory distress] 05-22-2024 Episodic Other lower respiratory disease (1 source) Dyspnea, unspecified; Translations: [Dyspnea, unspecified] Onset: 5 Episodic Other nervous system disorders (1 source) Chronic post-thoracotomy pain syndrome; 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] Chronic Other screening for suspected conditions (not mental disorders or infectious disease) (20 sources) CT of chest abnormal; Translations: [Abnormal findings on diagnostic imaging of other specified body structures] Onset: 4 08-13-2020 Chronic Other screening for suspected conditions (not mental disorders or infectious disease) (2 sources) Patient encounter status; Translations: [Encounter for screening for other disorder] Episodic Other skin disorders (2 sources) Lesion of skin of foot; Translations: [Changes in skin texture] Episodic Other upper respiratory disease (12 sources) Acute bronchospasm; Translations: [Acute bronchospasm] 05-22-2024 Episodic Peripheral and visceral atherosclerosis (20 sources) Peripheral vascular disease, unspecified; Translations: [Peripheral vascular disease, unspecified] Onset: 3 Resolved: 4 Chronic Phlebitis; thrombophlebitis and thromboembolism (1 source) Thrombosis of the popliteal vein; Translations: [Acute embolism and thrombosis of popliteal vein, bilateral] 04-14-2023 Episodic Pleurisy; pneumothorax; pulmonary collapse (4 sources) Pneumothorax; Translations: [Hydropneumothorax] 10-13-2022 Episodic Pulmonary heart disease (20 sources) Chronic pulmonary embolism; Translations: [Chronic pulmonary embolism] Onset: 5 04-08-2023 Chronic Residual codes; unclassified (20 sources) Hypoxia; Translations: [Idiopathic sleep related nonobstructive alveolar hypoventilation] 04-03-2017 Chronic Residual codes; unclassified (20 sources) H/O: pneumonectomy; Translations: [Other specified postprocedural states] 07-11-2020 Episodic Residual codes; unclassified (1 source) Edema of lower leg ; Translations: [Localized edema] 07-01-2024 Episodic Residual codes; unclassified (1 source) Localized edema; Translations: [Lower leg edema] Onset: 5 Episodic Respiratory failure; insufficiency; arrest (adult) (20 sources) Chronic hypoxemic respiratory failure; Translations: [Chronic respiratory failure with hypoxia] Onset: 3 04-03-2017 Chronic Respiratory failure; insufficiency; arrest (adult) (12 sources) Acute respiratory failure; Translations: [Acute respiratory failure with hypoxia] 10-17-2023 Episodic Skin and subcutaneous tissue infections (20 sources) Cellulitis; Translations: [Cellulitis, unspecified] 02-02-2022 Episodic Substance-related disorders (20 sources) Tobacco dependence in remission; Translations: [Nicotine dependence, unspecified, in remission] Onset: 4 Chronic Unclassified (1 source) Unknown / UNK(Unknown) Onset: 8 Unclassified (2 sources) Oven Loader was unable to reach the office please call and schedule your appointment. 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, initial encounter] Onset: 4 Viral infection (12 sources) Disease caused by 2019-nCoV; Translations: [COVID-19] 10-08-2023 Episodic Viral infection (1 source) COVID-19; Translations: [COVID-19] Onset: 4 Past or Other Problems Problem Classification Problem Date Documented Da te Episodic/Chronic Acute posthemorrhagic anemia (17 sources) Acute posthemorrhagic anemia; Translations: [Acute posthemorrhagic anemia] Onset: 5 06-03-2024 Episodic Cancer of prostate (20 sources) History of malignant neoplasm of prostate; Translations: [Personal history of malignant neoplasm of prostate] Onset: 5 03-21-2024 Episodic Coronary atherosclerosis and other heart disease (1 source) Presence of aortocoronary bypass graft; 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] Onset: 0 Episodic Diabetes mellitus with complications (20 sources) Type 2 diabetes mellitus with ulcer; Translations: [Type 2 diabetes mellitus with foot ulcer] Onset: 3 Resolved: 3 Chronic Gastrointestinal hemorrhage (20 sources) Gastrointestinal hemorrhage; Translations: [Gastrointestinal hemorrhage, unspecified] Onset: 5 10-25-2023 Episodic Immunizations and screening for infectious disease (3 sources) Needs influenza immunization; Translations: [Encounter for immunization] Onset: 4 12-19-2022 Episodic Neoplasms of unspecified nature or uncertain behavior (20 sources) Neoplasm of lung ; Translations: [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] Onset: 4 03-25-2023 Episodic Other aftercare (1 source) Other [place] [facility] (current[facility] drug therapy; Translations: [Encounter for long-term (current) use of medications] Onset: 5 Episodic Other aftercare (1 source) Encounter for follow-up examination after completed treatment for conditions other than malignant neoplasm; Translations: [Hospital discharge follow-up] Onset: 4 Episodic Other diseases of veins and lymphatics (1 source) Venous insufficiency (chronic) (peripheral); Translations: [Venous insufficiency] Onset: 4 Episodic Other gastrointestinal disorders (1 source) Other fecal abnormalities; Translations: [Other fecal abnormalities] Onset: 4 Episodic Other lower respiratory disease (14 sources) Solitary pulmonary nodule; Translations: [Nodule of lung] Onset: 0 02-20-2020 Episodic Other lower respiratory disease (6 sources) Dyspnea; Translations: [Shortness of breath] Onset: 1 04-06-2020 Episodic Other lower respiratory disease (6 sources) Hemoptysis; Translations: [Hemoptysis, unspecified] Onset: 4 03-25-2023 Episodic Other lower respiratory disease (6 sources) Other disorders of lung; Translations: [Other diseases of lung, not elsewhere classified] Onset: 4 03-25-2023 Episodic Other lower respiratory disease (2 sources) Shortness of breath; Translations: [SOB (shortness of breath)] Onset: 5 Episodic Other lower respiratory disease (2 sources) Other nonspecific abnormal finding of lung field; Translations: [Lung nodules] Onset: 4 Episodic Other lower respiratory disease (2 sources) Hypoxemia; Translations: [Hypoxemia] Onset: 4 Episodic Other lower respiratory disease (1 source) Tachypnea, not elsewhere classified; Translations: [Tachypnea, not elsewhere classified] Onset: 4 Episodic Pneumonia (except that caused by tuberculosis or sexually transmitted disease) (18 sources) Pneumonia; Translations: [Pneumonia, unspecified organism] Onset: 4 12-08-2023 Episodic Pulmonary heart disease (20 sources) Pulmonary embolism; Translations: [Other pulmonary embolism without acute cor pulmonale] Onset: 4 03-25-2023 Episodic Residual codes; unclassified (1 source) Personal history of other specified conditions; Translations: [Personal history of other specified conditions] Onset: 4 Episodic Screening and history of mental health and substance abuse codes (20 sources) Ex-smoker; Translations: [Personal history of nicotine dependence] Onset: 3 04-30-2022 Episodic Septicemia (except in labor) (1 source) Sepsis, unspecified organism; Translations: [Sepsis, unspecified organism] Onset: 4 Episodic Unclassified (1 source) Established Patient Onset: 8 Results Test Name Value Interpretation Reference Range Facility [facility] History AND Physic diogo 09-11-2024 Wound Ctr History & Physical Normal [facility] Creatinine + eGFR Pnl SerPlB ldon 09-09-2024 Creatinine and Glomerular filtration rate.predicted panel (S/P/Bld) 92 mL/min/1.73m??? Normal >=60 [facility] Comment on above: Order Comment: Speci men Type: BLOOD SPECIMENOrdering Facility: [facility] Address: [address] [place] [address] Result Comment: Karey mated Glomerular Filtration Rate (eGFR) is calculated using the 2020 CKD-EPI creatinine equation. This equation utilizes serum creatinine, sex, and age as parameters. The creatinine assay has traceable calibration to isotope dilution-mass spectrometry. Refer to KDIGO guidelines for clinical interpretation. In patients with unstable renal function, e.g. those with acute kidney injury, the eGFR may not accurately reflect actual GFR. Performed By: #### 4 5066-8 ####[facility] [id number] [place] [address] [place] Creatinine and Glomerular fi ltration rate.predicted panel (S/P/Bld)on 09-09-2024 Creatinine [Mass/Vol] 0.70 mg/dL Low 0.73-1.22 [facility] Comment on above: Order Comment: Fab doran Type: BLOOD SPECIMENOrdering Facility: [facility] Address: [address] [place] [address] Performed By: #### 4 5066-8 ####[facility] [id number] [place] [address] [place] CNPNon 09-08-2024 CNPN Normal [facility] CNOVon 08-31-2024 CNOV Normal [facility] Folate SerPl-mCncon 08-19-19 25 Folate [Mass/Vol] 12.1 ng/mL Normal >4.[address] [facility] Comment on above: Order Comment: Fab doran Type: BLOOD SPECIMENOrdering Facility: [facility] Address: [address] [address] Performed By: #### 2 132-9, 2284-8 ####[facility] LABCLIA [id number] [place] [address] [place] HEAVY METALS SCRN BLon 08-18 ARSENIC, BLOOD <10.0 Normal <=12.0 [facility] Comment on above: Order Comment: Speci men Type: BLOOD SPECIMENOrdering Facility: [facility] Address: [address] [place], [place] [id number] Result Comment: INTE RPRETIVE INFORMATION: Arsenic, BloodElevated results may be due to skin or collection-relatedcontamination, including the use of a noncertified metal-freecollection/transport tube. If contamination concerns exist due toelevated levels of blood arsenic, confirmation with a secondspecimen collected in a certified metal-free tube is recommended.Potentially toxic ranges for blood arsenic: Greater than or equalto 600 ug/L.Blood arsenic is for the detection of recent exposure poisoningonly. Blood arsenic levels in healthy subjects vary considerablywith exposure to arsenic in the diet and the environment. U37-taga urine arsenic is useful for the detection of chronicexposure.This test was developed and its performance characteristicsdetermined by [facility]. It has not been cleared orapproved by the [place] Food and Drug Administration. This test wasperformed in a CLIA certified laboratory and is intended forclinical purposes. Performed By: #### H EVMET ####[facility] LABORATORIESCLIA [id number] [place] [address] LEAD <2.0 Normal <=4.9 [facility] Comment on above: Order Comment: Speci men Type: BLOOD SPECIMENOrdering Facility: [facility] Address: [address] [place] [address] Result Comment: INTE RPRETIVE INFORMATION: Lead, Blood (Venous)Analysis performed by Inductively Coupled Plasma-Mass Spectrometry(ICP-MS).Elevated results may be due to skin or collection-relatedcontamination, including the use of a noncertified lead-free tube.If contamination concerns exist due to elevated levels of bloodlead, confirmation with a second specimen collected in a certifiedlead-free tube is recommended.Information sources for blood lead reference intervals andinterpretive comments include the CDC's Childhood Lead PoisoningPrevention: Recommended Actions Based on Blood Lead Level and theAdult Blood Lead Epidemiology and Surveillance: Reference BloodLead Levels (BLLs) for Adults in the [place] Thresholds and timeintervals for retesting, medical evaluation, and response vary bystate and regulatory body. Contact your State Department of Healthand/or applicable regulatory agency for specific guidance onmedical management recommendations.This test was developed and its performance characteristicsdetermined by [facility]. It has not been cleared orapproved by the U.S. Food and Drug Administration. This test wasperformed in a CLIA-certified laboratory and is intended forclinical purposes.Group Concentration CommentChildren 3.5-19.9 ug/dL Children under the age of 6 years are the most vulnerable to the harmful effects of lead exposure. Environmental investigation and exposure history to identify potential sources of lead. Biological and nutritional monitoring are recommended. Follow-up blood lead monitoring is recommended. 20-44.9 ug/dL Lead hazard reduction and prompt medical evaluation are recommended. Contact a Pediatric Environmental Health Specialty Unit or poison control center for guidance. Greater than Critical. Immediate medical 44.9 ug/dL evaluation, including detailed neurological exam is recommended. Consider chelation therapy when symptoms of lead toxicity are present. Contact a Pediatric Environmental Health Specialty Unit or poison control center for assistance.Adult 5-19.9 ug/dL Medical removal is recommended for women or those who are trying or may become . Adverse health effects are possible. Reduced lead exposure and increased blood lead monitoring are recommended. 20-69.9 ug/dL Adverse health effects are indicated. Medical removal from lead exposure is required by OSHA if blood lead level exceeds 50 ug/dL. Prompt medical evaluation is recommended. Greater than Critical. Immediate medical 69.9 ug/dL evaluation is recommended. Consider chelation therapy when symptoms of lead toxicity are present. Performed By: #### H EVMET ####[facility] LABORATORIESCLIA [id number] [place] [address] MERCURY <2.5 Normal <=10.0 [facility] Comment on above: Order Comment: Speci men Type: BLOOD SPECIMENOrdering Facility: [facility] Address: [address] [place] [address] Result Comment: INTE RPRETIVE INFORMATION: Mercury, BloodElevated results may be due to skin or collection-relatedcontamination, including the use of a noncertified metal-freecollection/transport tube. If contamination concerns exist due toelevated levels of blood mercury, confirmation with a secondspecimen collected in a certified metal-free tube is recommended.Blood mercury levels predominantly reflect recent exposure and aremost useful in the diagnosis of acute poisoning as blood mercuryconcentrations rise sharply and fall quickly over several daysafter ingestion. Blood concentrations in unexposed individualsrarely exceed 20 ug/L. The provided reference interval relates toinorganic mercury concentrations. Dietary and non-occupationalexposure to organic mercury forms may contribute to an elevatedtotal mercury result. Clinical presentation after toxic exposureto organic mercury may include dysarthria, ataxia and constrictedvision rebolledo with mercury blood concentrations from 20 to 50ug/L.This test was developed and its performance characteristicsdetermined by [facility]. It has not been cleared orapproved by the [place] Food and Drug Administration. This test wasperformed in a CLIA certified laboratory and is intended forclinical purposes.Performed By: [facility] [place], [place] [address]Rubvkvcaje Director: Rasta Mcdonald MD, PhDCLIA Number: [id number] Performed By: #### H EVMET ####[facility]ITAL[facility] [id number] [place] [address] VITAMIN B1 (THIAMINE), WHOLE BLOODon 08-18-2024 Thiamine (Bld) [Moles/Vol] 177.9 nmol/L Normal 84.3-213.3 [facility] Comment on above: Order Comment: Speci men Type: BLOOD SPECIMENOrdering Facility: [facility] Address: [address] [place] [address] Result Comment: This assay measures the concentration of thiamine diphosphate (TDP), the primary active form of vitamin B1. Approximately 90 percent of vitamin B1 present in whole blood is TDP. Thiamine and thiamine monophosphate, which comprise the remaining 10 percent, are not measured.This test was developed, and its performance characteristics determined by the [facility] Department of Pathology and Laboratory Medicine. It has not been cleared or approved by the FDA. The [facility] Department of Pathology and Laboratory Medicine is regulated under CLIA as qualified to perform high-complexity testing. This test is used for clinical purposes. It should not be regarded as investigational or for research. Performed By: #### B 1WB ####[facility] LABCLIA [id number] [place] [address] [place] Vit B12 SerPl-mCncon 025 Cobalamin (Vitamin B12) [Mass/Vol] 619 pg/mL Normal 232-1245 [facility] Comment on above: Order Comment: Speci men Type: BLOOD SPECIMENOrdering Facility: [facility] Address: [address], [place] [address] Performed By: #### 2 132-9, 2284-8 ####[facility] LABCLIA [id number] [place] [address] [place] CNOVon 08-01-2024 CNOV Normal [facility] MRI BRAIN WO/W IVCONon 07-21 MRI BRAIN WO/W IVCON [facility] Culture, Anaerobic Any Sourc mairah 07-19-2024 CUAN LEFT FOOT ULCER No growth in 5 days. Normal [facility] Comment on above: Performed By: #### M 100.4001, M100.3000, M100.2000 ####[facility] [id number] [place], [place], [id number] CBC W Auto Differential pane l (Bld)on 07-18-2024 Basophils (Bld) [#/Vol] 0.04 10*3/uL [facility] Basophils/100 WBC (Bld) 0.6 % [facility] Differential cell count method Nom (Bld) Auto [facility] Eosinophils (Bld) [#/Vol] 0.31 10*3/uL [facility] Eosinophils/100 WBC (Bld) 4.5 % [facility] Erythrocyte distribution width (RBC) [Ratio] 17.9 % High 11.5 - 15.0 % [facility] Hematocrit (Bld) [Volume fraction] 34.5 % Low 39.0 - 51.0 % [facility] Hemoglobin (Bld) [Mass/Vol] 10.2 g/dL Low 13.0 - 17.0 g/dL [facility] Immature granul[facility] (Bld) [#/Vol] [facility] Immature granulocytes/100 WBC (Bld) 0.1 % [facility] Interpretation and review of laboratory results Abnormal [facility] Lymphocytes (Bld) [#/Vol] 0.66 10*3/uL Low [facility] Lymphocytes/100 WBC (Bld) 9.6 % [facility] MCH (RBC) [Entitic mass] 27.6 pg 26.0 - 34.0 pg [facility] MCHC (RBC) [Mass/Vol] 29.6 g/dL Low 30.5 - 36.0 g/dL [facility] MCV (RBC) [Entitic vol] 93.5 fL 80.0 - 100.0 fL [facility] Monocytes (Bld) [#/Vol] 0.47 10*3/uL [facility] Monocytes/100 WBC (Bld) 6.8 % [facility] Neutrophils (Bld) [#/Vol] 5.38 10*3/uL [facility] Neutrophils/100 WBC (Bld) 78.4 % [facility] Nucleated RBC (Bld) [#/Vol] [facility] Nucleated RBC/100 WBC (Bld) [Ratio] 0 % /100 WBC [facility] Platelet mean volume (Bld) [Entitic vol] 8.8 fL Low 9.0 - 12.7 fL [facility] Platelets (Bld) [#/Vol] 266 10*3/uL [facility] Comment on above: No clot detected. RBC (Bld) [#/Vol] 3.69 10*6/uL Low 4.20 - 6.00 m/uL [facility] WBC (Bld) [#/Vol] 6.87 10*3/uL [facility] Basophils (Bld) [#/Vol] 0.04 10*3/uL Normal <0.11 [facility] Comment on above: Order Comment: Speci men Type: BLOOD SPECIMENOrdering Facility: [facility] Address: [address] [place] [address] Performed By: #### 5 7021-8, 26393-2 ####[facility] [id number] [address] [facility] Basophils/100 WBC (Bld) 0.6 % Normal [facility] Comment on above: Order Comment: Speci men Type: BLOOD SPECIMENOrdering Facility: [facility] Address: [address] [place] [address] Performed By: #### 5 7021-8, 20838-1 ####[facility] ALEKSEYWNCLIA [id number] [place] [address] [place] Differential cell count method Nom (Bld) Auto Normal [facility] Comment on above: Order Comment: Speci men Type: BLOOD SPECIMENOrdering Facility: [facility] Address: [address] [place] [address] Performed By: #### 5 7021-8, 80444-6 ####[facility] ALEKSEYWMARQUESLIA [id number] [place] [address] [place] Eosinophils (Bld) [#/Vol] 0.31 10*3/uL Normal <0.46 [facility] Comment on above: Order Comment: Speci men Type: BLOOD SPECIMENOrdering Facility: [facility] Address: [address] [place] [address] Performed By: #### 5 7021-8, 23317-3 ####[facility] HOSPITALAngelique [id number] [place] [address] [place] Eosinophils/100 WBC (Bld) 4.5 % Normal [facility] Comment on above: Order Comment: Speci men Type: BLOOD SPECIMENOrdering Facility: [facility] Address: [address] [place] [address] Performed By: #### 5 7021-8, 04805-6 ####[facility] ALEKSEYGREEN BAYMARQUESLIA [id number] [place] [address] [place] Erythrocyte distribution width (RBC) [Ratio] 17.9 % High 11.5-15.0 [facility] Comment on above: Order Comment: Speci men Type: BLOOD SPECIMENOrdering Facility: [facility] Address: [address] [place] [address] Performed By: #### 5 7021-8, 18750-2 ####[facility]OSPITALMARQUESLIA [id number] [place] [address] [place] Hematocrit (Bld) [Volume fraction] 34.5 % Low 39.0-51.0 [facility] Comment on above: Order Comment: Speci men Type: BLOOD SPECIMENOrdering Facility: [facility] Address: [address] [place] [address] Performed By: #### 5 7021-8, 29508-2 ####[facility] HOSPITALLUCAS [id number] [place] [address] [place] Hemoglobin (Bld) [Mass/Vol] 10.2 g/dL Low 13.0-17.0 [facility] Comment on above: Order Comment: Speci men Type: BLOOD SPECIMENOrdering Facility: [facility] Address: [address] [place] [address] Performed By: #### 5 7021-8, 14402-4 ####[facility]ITALLUCAS [id number] [place] [address] [place] Immature granulocytes (Bld) [#/Vol] 10*3/uL Normal <0.10 [facility] Comment on above: Order Comment: Speci men Type: BLOOD SPECIMENOrdering Facility: [facility] Address: [address] [place] [address] Performed By: #### 5 7021-8, 50006-4 ####[facility]ITALA [id number] [place] [address] [place] Immature granulocytes/100 WBC (Bld) 0.1 % Normal [facility] Comment on above: Order Comment: Speci men Type: BLOOD SPECIMENOrdering Facility: [facility] Address: [address] [place] [address] Performed By: #### 5 7021-8, 26197-4 ####[facility]OSPITALNCLIA [id number] [place] [address] [place] Lymphocytes (Bld) [#/Vol] 0.66 10*3/uL Low 1.00-4.00 [facility] Comment on above: Order Comment: Speci men Type: BLOOD SPECIMENOrdering Facility: [facility] Address: [address] [place] [address] Performed By: #### 5 7021-8, 38558-8 ####[facility] [id number] [place] [address] [place] Lymphocytes/100 WBC (Bld) 9.6 % Normal [facility] Comment on above: Order Comment: Speci men Type: BLOOD SPECIMENOrdering Facility: [facility] Address: [address] [place] [address] Performed By: #### 5 7021-8, 95463-7 ####[facility] [id number] [place] [address] [place] MCH (RBC) [Entitic mass] 27.6 pg Normal 26.0-34.0 [facility] Comment on above: Order Comment: Speci men Type: BLOOD SPECIMENOrdering Facility: [facility] Address: [address] [place] [address] Performed By: #### 5 7021-8, 76613-6 ####[facility] [id number] [place] [address] [place] MCHC (RBC) [Mass/Vol] 29.6 g/dL Low 30.5-36.0 [facility] Comment on above: Order Comment: Speci men Type: BLOOD SPECIMENOrdering Facility: [facility] Address: [address] [place] [address] Performed By: #### 5 7021-8, 60267-3 ####[facility] [id number] [place] [address] [place] MCV (RBC) [Entitic vol] 93.5 fL Normal 80.0-100.0 [facility] Comment on above: Order Comment: Speci men Type: BLOOD SPECIMENOrdering Facility: [facility] Address: [address] [place] [address] Performed By: #### 5 7021-8, 59185-6 ####[facility] ALEKSEYGREEN BAYLUCAS [id number] [place] [address] [place] Monocytes (Bld) [#/Vol] 0.47 10*3/uL Normal <0.87 [facility] Comment on above: Order Comment: Speci men Type: BLOOD SPECIMENOrdering Facility: [facility] Address: [address] [place] [address] Performed By: #### 5 7021-8, 17822-5 ####[facility]ITALNCAMER[facility] [id number] [place] [address] [place] Monocytes/100 WBC (Bld) 6.8 % Normal [facility] Comment on above: Order Comment: Speci men Type: BLOOD SPECIMENOrdering Facility: [facility] Address: [address] [place] [address] Performed By: #### 5 7021-8, 70875-3 ####[facility]ITALA [id number] [place] [address] [place] Neutrophils (Bld) [#/Vol] 5.38 10*3/uL Normal 1.45-7.50 [facility] Comment on above: Order Comment: Speci men Type: BLOOD SPECIMENOrdering Facility: [facility] Address: [address] [place] [address] Performed By: #### 5 7021-8, 11356-8 ####[facility] [id number] [place] [address] [place] Neutrophils/100 WBC (Bld) 78.4 % Normal [facility] Comment on above: Order Comment: Speci men Type: BLOOD SPECIMENOrdering Facility: [facility] Address: [address] [place] [address] Performed By: #### 5 7021-8, 02646-6 ####[facility] ALEKSEYGREEN BAYBRENDAA [id number] [place] [address] [place] Nucleated RBC (Bld) [#/Vol] 10*3/uL Normal <0.01 [facility] Comment on above: Order Comment: Speci men Type: BLOOD SPECIMENOrdering Facility: [facility] Address: [address] [place] [address] Performed By: #### 5 7021-8, 70808-9 ####[facility] [id number] [place] [address] [place] Nucleated RBC/100 WBC (Bld) [Ratio] 0.0 /100 WBC Normal [facility] Comment on above: Order Comment: Speci men Type: BLOOD SPECIMENOrdering Facility: [facility] Address: [address] [place] [address] Performed By: #### 5 7021-8, 01181-7 ####[facility]ITALA [id number] [place] [address] [place] Platelet mean volume (Bld) [Entitic vol] 8.8 fL Low 9.0-12.7 [facility] Comment on above: Order Comment: Speci men Type: BLOOD SPECIMENOrdering Facility: [facility] Address: [address] [place] [address] Performed By: #### 5 7021-8, 09902-9 ####[facility]ITALA [id number] [place] [address] [place] Platelets (Bld) [#/Vol] 266 10*3/uL Normal 150-400 [facility] Comment on above: Order Comment: Speci men Type: BLOOD SPECIMENOrdering Facility: [facility] Address: [address] [place] [address] Result Comment: No c lot detected. Performed By: #### 5 7021-8, 51955-2 ####[facility]PITALNCLIA [id number] [place] [address] [place] RBC (Bld) [#/Vol] 3.69 10*6/uL Low 4.20-6.00 [facility] Comment on above: Order Comment: Speci men Type: BLOOD SPECIMENOrdering Facility: [facility] Address: [address] [place] [address] Performed By: #### 5 7021-8, 50440-8 ####[facility]ITALA [id number] [place] [address] [place] WBC (Bld) [#/Vol] 6.87 10*3/uL Normal 3.70-11.00 [facility] Comment on above: Order Comment: Speci men Type: BLOOD SPECIMENOrdering Facility: [facility] Address: [address] [place] [address] Performed By: #### 5 7021-8, 60946-1 ####[facility]ITALA [id number] [place] [address] [place] Ferritin SerPl-ncon 2024 Ferritin [Mass/Vol] 230.0 ng/mL Normal 30.3-565.7 [facility] Comment on above: Order Comment: Speci men Type: BLOOD SPECIMENOrdering Facility: [facility] Address: [address] [place] [address] Performed By: #### 2 276-4, 79533-4 ####[facility] LABCLIA [id number] [place] [address] [place] Iron and Iron binding capaci ty panelon 07-18-2024 Iron [Mass/Vol] 45 ug/dL Normal 41-186 [facility] Comment on above: Order Comment: Speci men Type: BLOOD SPECIMENOrdering Facility: [facility] Address: [address] [place], [place] [address] Performed By: #### 2 276-4, 05256-4 ####[facility] LABIA [id number] [place] [id number] [place] Iron binding capacity [Mass/Vol] 275 ug/dL Normal 232-386 [facility] Comment on above: Order Comment: Speci men Type: BLOOD SPECIMENOrdering Facility: [facility] Address: [address] [place] [address] Performed By: #### 2 276-4, 79543-3 ####[facility] LABIA [id number] [place] [address] [place] Iron/TIBC [Molar ratio] 16.4 % Normal 15.0-57.0 [facility] Comment on above: Order Comment: Speci men Type: BLOOD SPECIMENOrdering Facility: [facility] Address: [address] [place] [address] Performed By: #### 2 276-4, 61070-6 ####[facility] LABIA [id number] [place] [address] [place] No Panel Informationon 07-18 [facility] RETICULOCYTE COUNTon 025 Reticulocytes (Bld) [#/Vol] 0.055 10*3/uL [facility] #on 07-18-2024 Reticulocytes (Bld) [#/Vol] 0.70218 10*3/uL Normal 0.018-0.10 0 [facility] Comment on above: Order Comment: Speci men Type: BLOOD SPECIMENOrdering Facility: [facility] Address: [address] [place] [address] Performed By: #### 5 7021-8, 49458-0 ####[facility] [id number] [place] [address] [place] Reticulocytes (Bld) [#/Vol]o n 07-18-2024 Interpretation and review of laboratory results Normal [facility] Reticulocytes/100 RBC (Bld) 1.5 % 0.4 - 2.0 % [facility] Reticulocytes/100 RBC (Bld) 1.5 % Normal 0.4-2.0 [facility] Comment on above: Order Comment: Speci men Type: BLOOD SPECIMENOrdering Facility: [facility] Address: [address] [place] [address] Performed By: #### 5 7021-8, 26927-4 ####[facility] MILLCOMMUNITY HOWARD REGIONAL HEALTHLIA [id number] [place] [address] [facility] Wound Cultureon 07-16-2024 WC Normal [facility] Comment on above: Performed By: #### M 100.4001, M100.3000, M1.1999 ####[facility] [address] [place], [address] CNPNon 07-15-2024 CNPN Normal [facility] Gram Stainon 07-14-2024 GS LEFT FOOT ULCER Gram Stain No organisms seen No cells seen Normal [facility] Comment on above: Performed By: #### M 100.4001, M100.3000, M1.1999 ####[facility] [address] [place], [address] Anaerobic cultureOrdered By: Rasta Mazariegos on 07-13-2024 Bacteria identified Anaer cx Nom (Unsp spec) No growth in 5 days. [facility] Gram stainOrdered By: Wayne Mazariegos on 07-13-2024 Microscopic observation Gram stain Nom (Unsp spec) [facility] L2100.0000on 07-11-2024 ACCA 40 units Normal 0-90 [facility] Comment on above: Result Comment: Nega tive: <80 Equivocal: 80-90 Positive: >90 Performed By: #### L 2100.0000, L101.9900, L501.6710 ####[facility] [address] [place], [address] ALCA 1 units Normal 0-60 [facility] Comment on above: Result Comment: Nega tive:<55 Equivocal: 55-60 Positive: >60 Performed By: #### L 2100.0000, L101.9900, L501.6710 ####[facility] [address] [place], [address] AMCA 49 units Normal 0-100 [facility] Comment on above: Result Comment: Nega tive: <90 Equivocal: 90-100 Positive: >100 This test was developed and its performance characteristics determined by [facility]. It has not been cleared or approved by the Food and Drug Administration. The FDA has determined that such clearance or approval is not necessary. Performed By: #### L 2100.0000, L101.9900, L501.6710 ####[facility] [address] [place], [address] Atypical pANCA Negative Normal Negative [facility] Comment on above: Performed By: #### L 2100.0000, L101.9900, L501.6710 ####[facility] [address] [place], [place], [address] COMMENT Comment Normal . [facility] Comment on above: Result Comment: Shantelle osmani is not suggestive of Inflammatory Bowel DiseasePerformed at: [facility] Lab[address] [id number] Director: Yamilet Dunbar MD, Phone: [phone] Performed By: #### L 2100.0000, L101.9900, L5.6710 ####[facility] [address] [place], [address] Mikki 45 units Normal 0-50 [facility] Comment on above: Result Comment: Nega tive: <45 Equivocal: 45-50 Positive: >50 Performed By: #### L 2100.0000, L101.9900, L501.6710 ####[facility] [address] [place], [address] CNOVon 07-01-2024 CNOV [facility] A[facility] P-ANCA titerOrdered By: Sosa Silva on 06-30-2024 Neutrophil cytoplasmic Ab.perinuclear.atypica l IF (S) [Titer] Negative Negative [facility] CRPon 06-30-2024 C-REACTIVE PROT 65.40 mg/L High 0.0-3.0 [facility] Comment on above: Performed By: #### L 2100.0000, L101.9900, L501.6710 ####[facility] [address] [place], [place], [address] Chitobioside IgA antibody as sayOrdered By: Sosa Silva on 06-30-2024 Chitobioside IgA IA Qn 40 units 0-90 [facility] Erythrocyte Sed Rateon 06-30 SED RATE 23 mm/hr High 0-20 [facility] Comment on above: Performed By: #### L 2100.0000, L101.9900, L501.6710 ####[facility] [address] [place], [place], [address] Erythrocyte sedimentation ra teOrdered By: Sosa Silva on 06-30-2024 ESR (Bld) [Velocity] 23 mm/h High 0-20 [facility] Gastroenterology Visit Repor ton 06-30-2024 Gastroenterology Visit Report Normal [facility] Laboratory - Miscellaneous t estsOrdered By: Sosa Silva on 06-30-2024 Laboratory comment Max (Report) Comment . [facility] Laminaribioside carbohydrate IgG antibody assayOrdered By: Sosa Silva on 06-30-2024 Laminaribioside IgG IA Qn 1 units 0-60 [facility] Serum or plasma C reactive p rotein measurement (mass/volume)Ordered By: Sosa Silva on 06-30-2024 CRP [Mass/Vol] 65.40 mg/L High 0.0-3.0 [facility] Serum or plasma mannobioside IgG antibody assay by immunoassay (units/volume)Ordered By: Sosa Silva on 06-30-2024 Mannobioside IgG IA Qn 49 units 0-100 [facility] CNOVon 06-24-2024 CNOV Normal [facility] CNPNon 06-22-2024 CNPN Normal [facility] Comprehensive metabolic 2000 panelon 06-22-2024 Albumin [Mass/Vol] 3.4 g/dL Low 3.9-4.9 [facility] Comment on above: Order Comment: Speci men Type: BLOOD SPECIMENOrdering Facility: [facility] Address: [address] [place] [address] Performed By: #### 2 4323-8 ####[facility] CENTERLIA [id number] [place] [address] [place] ALP [Catalytic activity/Vol] 87 U/L Normal 38-113 [facility] Comment on above: Order Comment: Speci men Type: BLOOD SPECIMENOrdering Facility: [facility] Address: [address] [place] [address] Performed By: #### 2 4323-8 ####[facility] CENTERLIA [id number] [place] [address] [place] ALT [Catalytic activity/Vol] 6 U/L Low 10-54 [facility] Comment on above: Order Comment: Speci men Type: BLOOD SPECIMENOrdering Facility: [facility] Address: [address] [place] [address] Performed By: #### 2 4323-8 ####[facility] CENTERLIA [id number] [place] [address] [place] Anion gap [Moles/Vol] 6 mmol/L Low 8-15 [facility] Comment on above: Order Comment: Speci men Type: BLOOD SPECIMENOrdering Facility: [facility] Address: [address] [place] [address] Performed By: #### 2 4323-8 ####[facility]PITALNCLIA [id number] [place] [address] [place] AST [Catalytic activity/Vol] 13 U/L Low 14-40 [facility] Comment on above: Order Comment: Speci men Type: BLOOD SPECIMENOrdering Facility: [facility] Address: [address] [place] [address] Performed By: #### 2 4323-8 ####[facility]PITALNCAMER[facility] [id number] [place] [address] [place] Bilirubin [Mass/Vol] 0.2 mg/dL Normal 0.2-1.3 [facility] Comment on above: Order Comment: Speci men Type: BLOOD SPECIMENOrdering Facility: [facility] Address: [address] [place] [address] Performed By: #### 2 4323-8 ####[facility]ITALNCAMER[facility] [id number] [place] [address] [place] Calcium [Mass/Vol] 9.4 mg/dL Normal 8.5-10.2 [facility] Comment on above: Order Comment: Speci men Type: BLOOD SPECIMENOrdering Facility: [facility] Address: [address] [place] [address] Performed By: #### 2 4323-8 ####[facility]OSPITALNCLIA [id number] [place] [address] [place] Chloride [Moles/Vol] 103 mmol/L Normal 98-107 [facility] Comment on above: Order Comment: Speci men Type: BLOOD SPECIMENOrdering Facility: [facility] Address: [address] [place] [address] Performed By: #### 2 4323-8 ####[facility]PITALNCLIA [id number] [place] [address] [place] CO2 [Moles/Vol] 29 mmol/L Normal 22-30 [facility] Comment on above: Order Comment: Speci men Type: BLOOD SPECIMENOrdering Facility: [facility] Address: [address] [place] [address] Performed By: #### 2 4323-8 ####[facility]EMBROKEWNCLIA [id number] [place] [address] [place] Creatinine [Mass/Vol] 0.94 mg/dL Normal 0.73-1.22 [facility] Comment on above: Order Comment: Speci men Type: BLOOD SPECIMENOrdering Facility: [facility] Address: [address] [place] [address] Performed By: #### 2 4323-8 ####[facility] HOSPITALNCLI [id number] [place] [address] [place] Creatinine and Glomerular filtration rate.predicted panel (S/P/Bld) 81 mL/min/1.73m??? Normal >=60 [facility] Comment on above: Order Comment: Fab doran Type: BLOOD SPECIMENOrdering Facility: [facility] Address: [address] [place] [address] Result Comment: Karey mated Glomerular Filtration Rate (eGFR) is calculated using the 2020 CKD-EPI creatinine equation. This equation utilizes serum creatinine, sex, and age as parameters. The creatinine assay has traceable calibration to isotope dilution-mass spectrometry. Refer to KDIGO guidelines for clinical interpretation. In patients with unstable renal function, e.g. those with acute kidney injury, the eGFR may not accurately reflect actual GFR. Performed By: #### 2 4323-8 ####[facility] [id number] [place] [address] [place] Glucose [Mass/Vol] 104 mg/dL High 74-99 [facility] Comment on above: Order Comment: Suni men Type: BLOOD SPECIMENOrdering Facility: [facility] Address: [address] [place] [address] Result Comment: The [place] Diabetes Association (ADA) provides guidance for cutoff values for fasting glucose and random glucose. The ADA defines fasting as no caloric intake for at least 8 hours. Fasting plasma glucose results between 100 to 125 mg/dL indicate increased risk for diabetes (prediabetes).Fasting plasma glucose results greater than or equal to 126 mg/dL meet the criteria for diagnosis of diabetes. In the absence of unequivocal hyperglycemia, results should be confirmed by repeat testing. In a patient with classic symptoms of hyperglycemia or hyperglycemic crisis, random plasma glucose results greater than or equal to 200 mg/dL meet the criteria for diagnosis of diabetes.Reference: Standards of Medical Care in Diabetes 2016, [place] Diabetes Association. Diabetes Care. 2016.39(Suppl 1). Performed By: #### 2 4323-8 ####[facility] MILLTOWNCLIA [id number] [place] [address] [place] Potassium [Moles/Vol] 4.4 mmol/L Normal 3.7-5.1 [facility] Comment on above: Order Comment: Fab doran Type: BLOOD SPECIMENOrdering Facility: [facility] Address: [address] [place] [address] Performed By: #### 2 4323-8 ####[facility] PEMBROKEWNCLIA [id number] [place] [address] [place] Protein [Mass/Vol] 6.0 g/dL Low 6.3-8.0 [facility] Comment on above: Order Comment: Fab doran Type: BLOOD SPECIMENOrdering Facility: [facility] Address: [address] [place] [address] Performed By: #### 2 4323-8 ####[facility]PITALNCLIA [id number] [place] [address] [place] Sodium [Moles/Vol] 138 mmol/L Normal 136-144 [facility] Comment on above: Order Comment: Fab doran Type: BLOOD SPECIMENOrdering Facility: [facility] Address: [address] [place] [address] Performed By: #### 2 4323-8 ####[facility]EM[facility]KEWNCLIA [id number] [place] [address] [place] Urea nitrogen [Mass/Vol] 17 mg/dL Normal 9-24 [facility] Comment on above: Order Comment: Fab doran Type: BLOOD SPECIMENOrdering Facility: [facility] Address: [address] [place] [address] Performed By: #### 2 4323-8 ####[facility] MISHEL RYDERCOMMUNITY HOWARD REGIONAL HEALTHRICK [id number] [place] [address] [place] HbA1c (Bld)on 06-22-2024 Average glucose Estimated from glycated hemoglobin (Bld) [Mass/Vol] 108 mg/dL Normal [facility] Comment on above: Order Comment: Fab doran Type: BLOOD SPECIMENOrdering Facility: [facility] Address: [address] [place] [address] Result Comment: eAG: (Estimated average glucose) is a calculated value from HgbA1c and is videotape sales representative of the average blood glucose level in the last 2-3 month period. Performed By: #### 5 5454-3 ####[facility] LABCLIA [id number] [address] STATES OF [facility] HbA1c (Bld) [Mass fraction] 5.4 % Normal 4.3-5.6 [facility] Comment on above: Order Comment: Fab doran Type: BLOOD SPECIMENOrdering Facility: [facility] Address: [address] [place] [address] Result Comment: [place] Diabetes Association guidelines indicate that patients with HgbA1c in the range 5.7-6.4% are at increased risk for development of diabetes, and intervention by lifestyle modification may be beneficial. HgbA1c greater or equal to 6.5% is considered diagnostic of diabetes. Performed By: #### 5 5454-3 ####[facility] LABIA [id number] [place] [id number] [place] Lipid 1996 panelon Cholesterol [Mass/Vol] 96 mg/dL Normal <200 [facility] Comment on above: Order Comment: Fab doran Type: BLOOD SPECIMENOrdering Facility: [facility] Address: [address] [place], [place] [address] Result Comment: <200 mg/dL, Desirable 200-239 mg/dL, Borderline high>239 mg/dL, High Performed By: #### 2 4331-1 ####[facility] LABCLIA [id number] [address] [address] [facility] [id number] [place] [address] [place] Cholesterol in HDL [Mass/Vol] 38 mg/dL Low >39 [facility] Comment on above: Order Comment: Speci men Type: BLOOD SPECIMENOrdering Facility: [facility] Address: [address] [place] [address] Result Comment: 40-5 9 mg/dL, Acceptable>59 mg/dL, High: Negative risk factor for coronary heart disease<40 mg/dL, Low: Positive risk factor for coronary heart disease Performed By: #### 2 4331-1 ####[facility] LABCLIA [id number] [address], [address] [id number] [place] [address] [place] Cholesterol in LDL [Mass/Vol] 38 mg/dL Normal <100 [facility] Comment on above: Order Comment: Speci men Type: BLOOD SPECIMENOrdering Facility: [facility] Address: [address] [place] [address] Result Comment: <100 mg/dL, Optimal 100-129 mg/dL, Near optimal/above optimal 130-159 mg/dL, Borderline high 160-189 mg/dL, High>189 mg/dL, Very highSecondary prevention optimal LDL Cholesterol levels are recommended to be <70 mg/dLLDL cholesterol is calculated using the Keane-NIH equation. Performed By: #### 2 4331-1 ####[facility] LABCLIA [id number] [address] [address] [facility] [id number] [address] Cholesterol in LDL/Cholesterol in HDL [Mass ratio] 1.00 {ratio} Normal <2.54 [facility] Comment on above: Order Comment: Speci men Type: BLOOD SPECIMENOrdering Facility: [facility] Address: [address] [place] [address] Result Comment: Refe aranza:1. National Cholesterol Education Program ATP III Guideline At-A-Glance Quick Desk Reference: National Heart, Lung, and Blood [place]. National Institutes of Health. 2001: NIH Publication No. 01-3305.2. An International Atherosclerosis Society position paper: global recommendations for the management of dyslipidemia: executive summary, Atherosclerosis. 2014: 232(2):410-413. Performed By: #### 2 4331-1 ####[facility] LABCLIA [id number] [address] [id number] [address] [place] Cholesterol in VLDL [Mass/Vol] 14 mg/dL Normal <30 [facility] Comment on above: Order Comment: Speci men Type: BLOOD SPECIMENOrdering Facility: [facility] Address: [address] [place] [address] Performed By: #### 2 4331-1 ####[facility] LABCLIA [id number] [address] [id number] [place] [address] [place] Cholesterol non HDL [Mass/Vol] 58 mg/dL Normal <130 [facility] Comment on above: Order Comment: Speci men Type: BLOOD SPECIMENOrdering Facility: [facility] Address: [address] [place] [address] Result Comment: <130 mg/dL, Optimal 130-159 mg/dL, Near optimal/above optimal 160-189 mg/dL, Borderline high 190-219 mg/dL, High>219 mg/dL, Very highSecondary prevention optimal non HDL Cholesterol levels are recommended to be <100 mg/dL Performed By: #### 2 4331-1 ####[facility] LABCLIA [id number] [id number] [place] [address] Cholesterol.total/Chol esterol in HDL [Mass ratio] 2.53 {ratio} Normal <5.10 [facility] Comment on above: Order Comment: Speci men Type: BLOOD SPECIMENOrdering Facility: [facility] Address: [address] [place] [address] Performed By: #### 2 4331-1 ####[facility] LABCLIA [id number] [address] [id number] [place] [address] FASTING TIME 12 hrs Normal [facility] Comment on above: Order Comment: Speci men Type: BLOOD SPECIMENOrdering Facility: [facility] Address: [address] [place] [address] Performed By: #### 2 4331-1 ####[facility] LABIA [id number] [address] [id number] [place] [address] [facility] Triglyceride [Mass/Vol] 106 mg/dL Normal <150 [facility] Comment on above: Order Comment: Speci men Type: BLOOD SPECIMENOrdering Facility: [facility] Address: [address] [place] [address] Result Comment: <150 mg/dL, Normal 150-199 mg/dL, Borderline high 200-499 mg/dL, High>499 mg/dL, Very high Performed By: #### 2 4331-1 ####[facility] LABCLIA [id number] [place] [id number] [place] STATES OF [facility] HOSPITALLIA [id number] [place], [place] [address] [place] [address] [place] CNPNon 06-14-2024 CNPN Normal [facility] Absolute lymphocyte countOrd ered By: Mirna Lam on 06-13-2024 Lymphocytes Auto (Unsp spec) [#/Vol] 0.43 10*3/uL Low 0.83-4.51 [facility] Absolute neutrophil countOrd ered By: Mirna Lam on 06-13-2024 Absolute neutrophil count 7.0 X10^3/uL 2.0-7.7 [facility] Automated blood erythrocyte countOrdered By: Mirna Lam on 06-13-2024 RBC (Bld) [#/Vol] 3.17 10*6/uL Low 4.6-6.2 [facility] Comment on above: Performed By: #### L 100.0100 ####[facility] [address] [place], [place], [address] Automated blood hematocrit ( percentage)Ordered By: Mirna Lam on 06-13-2024 Hematocrit (Bld) [Volume fraction] 28.9 % Low 40-54 [facility] Comment on above: Performed By: #### L 100.0100 ####[facility] [address] [place], [address] Automated lymphocyte count a s percentage of total leukocytesOrdered By: Mirna Lam on 06-13-2024 Lymphocytes/100 WBC Auto (Unsp spec) 5.4 % Low 19-41 [facility] Basophil percentageOrdered B y: Mirna Lam on 06-13-2024 Basophils/100 WBC (Bld) 0.3 % Normal 0-1 [facility] Comment on above: Performed By: #### L 100.0100 ####[facility] [address] [place], [address] Basophil percentage 0.3 % 0-1 [facility] CBC W Auto Differential pane l (Bld)on 06-13-2024 Basophils (Bld) [#/Vol] 10*3/uL Normal <0.11 [facility] Comment on above: Order Comment: Speci men Type: BLOOD SPECIMENOrdering Facility: [facility] Address: [address] [place] [address] Performed By: #### 5 7021-8, 48932-7 ####[facility] MILLWVTLIA [id number] [place] [address] [place] Basophils/100 WBC (Bld) 0.3 % Normal [facility] Comment on above: Order Comment: Speci men Type: BLOOD SPECIMENOrdering Facility: [facility] Address: [address] [place] [address] Performed By: #### 5 7021-8, 84574-3 ####[facility]OSPITALA [id number] [place] [address] [place] Differential cell count method Nom (Bld) Auto Normal [facility] Comment on above: Order Comment: Speci men Type: BLOOD SPECIMENOrdering Facility: [facility] Address: [address] [place] [address] Performed By: #### 5 7021-8, 28710-6 ####[facility] CENTERLIA [id number] [place] [address] [place] Eosinophils (Bld) [#/Vol] 0.03 10*3/uL Normal <0.46 [facility] Comment on above: Order Comment: Speci men Type: BLOOD SPECIMENOrdering Facility: [facility] Address: [address] [place] [address] Performed By: #### 5 7021-8, 34965-1 ####[facility] CENTERLIA [id number] [place] [address] [place] Eosinophils/100 WBC (Bld) 0.4 % Normal [facility] Comment on above: Order Comment: Speci men Type: BLOOD SPECIMENOrdering Facility: [facility] Address: [address] [place] [address] Performed By: #### 5 7021-8, 53372-4 ####[facility]ITALNCAMER[facility] [id number] [place] [address] [place] Erythrocyte distribution width (RBC) [Ratio] 15.9 % High 11.5-15.0 [facility] Comment on above: Order Comment: Speci men Type: BLOOD SPECIMENOrdering Facility: [facility] Address: [address] [place] [address] Performed By: #### 5 7021-8, 90279-6 ####[facility] [id number] [place] [address] [place] Hematocrit (Bld) [Volume fraction] 28.6 % Low 39.0-51.0 [facility] Comment on above: Order Comment: Speci men Type: BLOOD SPECIMENOrdering Facility: [facility] [facility] Address: [address] [place] [address] Performed By: #### 5 7021-8, 19783-1 ####[facility] [id number] [place] [address] [place] Hemoglobin (Bld) [Mass/Vol] 8.4 g/dL Low 13.0-17.0 [facility] Comment on above: Order Comment: Speci men Type: BLOOD SPECIMENOrdering Facility: [facility] Address: [address] [place] [address] Performed By: #### 5 7021-8, 34757-0 ####[facility] [id number] [place] [address] [place] Immature granulocytes (Bld) [#/Vol] 0.03 10*3/uL Normal <0.10 [facility] Comment on above: Order Comment: Speci men Type: BLOOD SPECIMENOrdering Facility: [facility] Address: [address] [place] [address] Performed By: #### 5 7021-8, 55592-1 ####[facility] GILDA [id number] [place] [address] [place] Immature granulocytes/100 WBC (Bld) 0.4 % Normal [facility] Comment on above: Order Comment: Speci men Type: BLOOD SPECIMENOrdering Facility: [facility] Address: [address] [place] [address] Performed By: #### 5 7021-8, 43462-8 ####[facility] [id number] [place] [address] [place] Lymphocytes (Bld) [#/Vol] 0.42 10*3/uL Low 1.00-4.00 [facility] Comment on above: Order Comment: Speci men Type: BLOOD SPECIMENOrdering Facility: [facility] Address: [address] [place] [address] Performed By: #### 5 7021-8, 19690-0 ####[facility] [id number] [address] [place] Lymphocytes/100 WBC (Bld) 5.5 % Normal [facility] Comment on above: Order Comment: Speci men Type: BLOOD SPECIMENOrdering Facility: [facility] Address: [address] [place] [address] Performed By: #### 5 7021-8, 43199-8 ####[facility] [id number] [place] [address] [place] MCH (RBC) [Entitic mass] 26.4 pg Normal 26.0-34.0 [facility] Comment on above: Order Comment: Speci men Type: BLOOD SPECIMENOrdering Facility: [facility] Address: [address] [place] [address] Performed By: #### 5 7021-8, 80589-1 ####[facility] AILEENLUCAS [id number] [place] [address] [place] MCHC (RBC) [Mass/Vol] 29.4 g/dL Low 30.5-36.0 [facility] Comment on above: Order Comment: Speci men Type: BLOOD SPECIMENOrdering Facility: [facility] Address: [address] [place] [address] Performed By: #### 5 7021-8, 19055-2 ####[facility] ALEKSEYJENNIFER [id number] [place] [address] [place] MCV (RBC) [Entitic vol] 89.9 fL Normal 80.0-100.0 [facility] Comment on above: Order Comment: Speci men Type: BLOOD SPECIMENOrdering Facility: [facility] Address: [address] [place] [address] Performed By: #### 5 7021-8, 29817-3 ####[facility]ITALLUCAS [id number] [place] [address] [place] Monocytes (Bld) [#/Vol] 0.34 10*3/uL Normal <0.87 [facility] Comment on above: Order Comment: Speci men Type: BLOOD SPECIMENOrdering Facility: [facility] Address: [address] [place] [address] Performed By: #### 5 7021-8, 14622-4 ####[facility] [id number] [place] [address] [place] Monocytes/100 WBC (Bld) 4.4 % Normal [facility] Comment on above: Order Comment: Speci men Type: BLOOD SPECIMENOrdering Facility: [facility] Address: [address] [place] [address] Performed By: #### 5 7021-8, 11079-6 ####[facility] MILLTOWNCLIA [id number] [place] [address] [place] Neutrophils (Bld) [#/Vol] 6.84 10*3/uL Normal 1.45-7.50 [facility] Comment on above: Order Comment: Speci men Type: BLOOD SPECIMENOrdering Facility: [facility] Address: [address] [place] [address] Performed By: #### 5 7021-8, 70352-9 ####[facility] MILLTOWNCLIA [id number] [place] [address] [place] Neutrophils/100 WBC (Bld) 89.0 % Normal [facility] Comment on above: Order Comment: Speci men Type: BLOOD SPECIMENOrdering Facility: [facility] Address: [address] [place] [address] Performed By: #### 5 7021-8, 64733-4 ####[facility]ITAL[facility]CL[facility] [id number] [place] [address] [place] Nucleated RBC (Bld) [#/Vol] 10*3/uL Normal <0.01 [facility] Comment on above: Order Comment: Speci men Type: BLOOD SPECIMENOrdering Facility: [facility] Address: [address] [place] [address] Performed By: #### 5 7021-8, 58285-6 ####[facility] MILLTOWNCLIA [id number] [place] [address] [place] Nucleated RBC/100 WBC (Bld) [Ratio] 0.0 /100 WBC Normal [facility] Comment on above: Order Comment: Speci men Type: BLOOD SPECIMENOrdering Facility: [facility] Address: [address] [place] [address] Performed By: #### 5 7021-8, 38611-0 ####[facility] MILLWNCLIA [id number] [place] [address] [place] Platelet mean volume (Bld) [Entitic vol] 8.2 fL Low 9.0-12.7 [facility] Comment on above: Order Comment: Speci men Type: BLOOD SPECIMENOrdering Facility: [facility] Address: [address] [place] [address] Performed By: #### 5 7021-8, 99743-4 ####[facility]ITALNCLIA [id number] [place] [address] [place] Platelets (Bld) [#/Vol] 184 10*3/uL Normal 150-400 [facility] Comment on above: Order Comment: Speci men Type: BLOOD SPECIMENOrdering Facility: [facility] Address: [address] [place] [address] Performed By: #### 5 7021-8, 82290-8 ####[facility] HOSPITALNCPAULAA [id number] [place] [address] [place] RBC (Bld) [#/Vol] 3.18 10*6/uL Low 4.20-6.00 [facility] Comment on above: Order Comment: Speci men Type: BLOOD SPECIMENOrdering Facility: [facility] Address: [address] [place] [address] Performed By: #### 5 7021-8, 25703-7 ####[facility]KEWNCLIA [id number] [place] [address] [place] WBC (Bld) [#/Vol] 7.68 10*3/uL Normal 3.70-11.00 [facility] Comment on above: Order Comment: Speci men Type: BLOOD SPECIMENOrdering Facility: [facility] Address: [address] [place] [address] Performed By: #### 5 7021-8, 66335-2 ####[facility]ITALNCLIA [id number] [place] [address] [place] CBC W/Diff, Automatedon 04- Absolute Lymph 0.43 X10 3/uL Low 0.83-4.51 [facility] Comment on above: Performed By: #### L 100.0100 ####[facility] [address] [place], [address] Absolute Neut 7.0 X10 3/uL Normal 2.0-7.7 [facility] Comment on above: Performed By: #### L 100.0100 ####[facility] [address] [place], [address] IG% 0.500 Normal 0.0-0.9 [facility] Comment on above: Result Comment: IG% - Immature Granulocytes (promyelocytes, myelocytes andmetamyelocytes) > 1% indicates that a LEFT SHIFT is Present. Performed By: #### L 100.0100 ####[facility] [address] [place], [address] Lymphocytes/100 WBC (Bld) 5.4 % Low 19-41 [facility] Comment on above: Performed By: #### L 100.0100 ####[facility] [address] [place], [address] MCHC (RBC) [Mass/Vol] 29.8 g/dL Low 32-36 [facility] Comment on above: Performed By: #### L 100.0100 ####[facility] [address] [place], [address] Nucleated RBC (Bld) [#/Vol] 0 10*3/uL Normal 0-5 [facility] Comment on above: Performed By: #### L 100.0100 ####[facility] [address] [place], [address] Platelet mean volume (Bld) [Entitic vol] 9.0 fL Normal 6.2-12.0 [facility] Comment on above: Performed By: #### L 100.0100 ####[facility] [address] [place], [address] RDW SD 51.8 fl High 35.1-43.9 [facility] Comment on above: Performed By: #### L 100.0100 ####[facility] [address] [place], [address] Culture, Anaerobic Any Sourc mariah 06-13-2024 CUAN LEFT MEDIAN ANKLE GR AM STAIN No anaerobic bacteria isolated. Normal [facility] Comment on above: Performed By: #### M 100.2000, M100.4001, M100.3000 ####[facility] [address] [place], [address] Diagnostic total prostate sp ecific antigen (PSA) measurementOrdered By: Teresa Garner on 06-13-2024 Diagnostic total prostate specific antigen (PSA) measurement 0.17 ng/mL 0.00-4.00 [facility] Eosinophil percentageOrdered By: Mirna Lam on 06-13-2024 Eosinophils/100 WBC (Bld) 0.9 % Normal 0-5 [facility] Comment on above: Performed By: #### L 100.0100 ####[facility] [address] [place], [address] Eosinophil percentage 0.9 % 0-5 [facility] Erythrocyte distribution wid th (RBC) [Ratio]Ordered By: Mirna Lam on 06-13-2024 Erythrocyte distribution width ratio 15.8 % High 11.6-14.6 [facility] Erythrocyte distribution width standard deviation 51.8 fl High 35.1-43.9 [facility] Erythrocyte distribution wid th ratioOrdered By: Mirna Lam on 06-13-2024 Erythrocyte distribution width (RBC) [Ratio] 15.8 % High 11.6-14.6 [facility] Comment on above: Performed By: #### L 100.0100 ####[facility] [address] [place], [address] Erythrocyte distribution wid th standard deviationOrdered By: Mirna Lam on 06-13-2024 Erythrocyte distribution width (RBC) [Ratio] 51.8 fl High 35.1-43.9 [facility] Ferritin SerPl-mCncon 2024 Ferritin [Mass/Vol] 72.3 ng/mL Normal 30.3-565.7 [facility] Comment on above: Order Comment: Speci men Type: BLOOD SPECIMENOrdering Facility: [facility] Address: [address] [place] [address] Performed By: #### 2 276-4, 65002-3 ####[facility] LABCLIA [id number] [place] [id number] [place] Hematocrit Auto (Bld) [Volum e fraction]Ordered By: Mirna Lam on 06-13-2024 Automated blood hematocrit (percentage) 28.9 % Low 40-54 [facility] Hemoglobin measurementOrdere d By: Mirna Lam on 06-13-2024 Hemoglobin (Bld) [Mass/Vol] 8.6 g/dL Low 13.0-16.5 [facility] Comment on above: Performed By: #### L 100.0100 ####[facility] [address], [address] Hemoglobin measurement 8.6 g/dL Low 13.0-16.5 [facility] Immature granulocytes/100 WB C Auto (Bld)Ordered By: Mirna Lam on 06-13-2024 Immature granulocytes/100 WBC (Bld) 0.500 % 0.0-0.9 [facility] Automated immature granulocyte percentage 0.500 % 0.0-0.9 [facility] Iron and Iron binding capaci ty panelon 06-13-2024 Iron [Mass/Vol] 30 ug/dL Low 41-186 [facility] Comment on above: Order Comment: Speci men Type: BLOOD SPECIMENOrdering Facility: [facility] Address: [address] [place] [address] Performed By: #### 2 276-4, 37828-1 ####[facility] LABCLIA [id number] [place] [id number] [place] Iron binding capacity [Mass/Vol] 297 ug/dL Normal 232-386 [facility] Comment on above: Order Comment: Speci men Type: BLOOD SPECIMENOrdering Facility: [facility] Address: [address] [place] [address] Performed By: #### 2 276-4, 65534-4 ####[facility] LABCLIA [id number] [place] [address] [place] Iron/TIBC [Molar ratio] 10.1 % Low 15.0-57.0 [facility] Comment on above: Order Comment: Speci men Type: BLOOD SPECIMENOrdering Facility: [facility] Address: [address] [place] [address] Performed By: #### 2 276-4, 73358-6 ####[facility] LABCLIA [id number] [place] [address] [place] Lymphocytes Auto (Unsp spec) [#/Vol]Ordered By: Mirna Lam on 06-13-2024 Absolute lymphocyte count 0.43 X10^3/uL Low 0.83-4.51 [facility] Lymphocytes/100 WBC Auto (Un sp spec)Ordered By: Mirna Lam on 06-13-2024 Automated lymphocyte count as percentage of total leukocytes 5.4 % Low 19-41 [facility] MCV (RBC) [Entitic vol]Order ed By: Mirna Lam on 06-13-2024 MCV (mean corpuscular volume) determination 91.2 fL 80-94 [facility] MCV (mean corpuscular volume ) determinationOrdered By: Mirna Lam on 06-13-2024 MCV (RBC) [Entitic vol] 91.2 fL Normal 80-94 [facility] Comment on above: Performed By: #### L 100.0100 ####[facility] [address] [place], [address] Mean corpuscular hemoglobin (MCH) determinationOrdered By: Mirna Lam on 06-13-2024 MCH (RBC) [Entitic mass] 27.1 pg Normal 27.0-32.0 [facility] Comment on above: Performed By: #### L 100.0100 ####[facility] [address] [place], [address] Mean corpuscular hemoglobin (MCH) determination 27.1 pg 27.0-32.0 [facility] Mean corpuscular hemoglobin concentration (MCHC) determinationOrdered By: Mirna Lam on 06-13-2024 Mean corpuscular hemoglobin concentration (MCHC) determination 29.8 g/dL Low 32-36 [facility] Mean platelet volume determi nationOrdered By: Mirna Lam on 06-13-2024 Mean platelet volume determination 9.0 fl 6.2-12.0 [facility] Monocyte percentageOrdered B y: Mirna Lam on 06-13-2024 Monocytes/100 WBC (Bld) 4.6 % Normal 0-10 [facility] Comment on above: Performed By: #### L 100.0100 ####[facility] [address] [place], [address] Monocyte percentage 4.6 % 0-10 [facility] Neutrophil percentageOrdered By: Mirna Lam on 06-13-2024 Neutrophils/100 WBC (Bld) 88.3 % High 47-70 [facility] Comment on above: Performed By: #### L 100.0100 ####[facility] [address] [place], [address] Neutrophil percentage 88.3 % High 47-70 [facility] Nucleated red blood cell per centageOrdered By: Mirna Lam on 06-13-2024 Nucleated red blood cell percentage 0 % 0-5 [facility] Office Visit Reporton 2024 Office Visit Report Normal [facility] PSA,Total- Diagnosticon 05-31 PSA, DIAGNOSTIC 0.17 ng/mL Normal 0.00-4.00 [facility] Comment on above: Result Comment: This test was performed using the [employer] tPSAmethod. Measured values of a patient??sample can varydepending on the testing procedure used. PSA valuesdetermined on patient samples by different testingprocedures cannot be used interchangeably. If there is achange in PSA assays while monitoring therapy, sequentialtesting should be performed to confirm baseline values. Performed By: #### L 501.9940 ####[facility] [address] [place], [address] Platelet countOrdered By: Shaji Lam on 06-13-2024 Platelets (Bld) [#/Vol] 213 10*3/uL Normal 150-450 [facility] Comment on above: Performed By: #### L 100.0100 ####[facility] [address] [place], [address] Platelet count 213 K/mm3 150-450 [facility] RBC Auto (Bld) [#/Vol]Ordere d By: Mirna Lam on 06-13-2024 Automated blood erythrocyte count 3.17 M/mm3 Low 4.6-6.2 [facility] Retics #on 06-13-2024 Reticulocytes (Bld) [#/Vol] 0.0001 10*3/uL Normal 0.018-0.10 0 [facility] Comment on above: Order Comment: Speci men Type: BLOOD SPECIMENOrdering Facility: [facility] Address: [address] [place] [address] Performed By: #### 5 7021-8, 26671-4 ####[facility] [id number] [place] [address] [place] Reticulocytes (Bld) [#/Vol]o n 06-13-2024 Reticulocytes/100 RBC (Bld) 3.0 % High 0.4-2.0 [facility] Comment on above: Order Comment: Speci men Type: BLOOD SPECIMENOrdering Facility: [facility] Address: [address] [place] [address] Performed By: #### 5 7021-8, 38187-6 ####[facility]KEWVTLIA [id number] [place] [address] [place] [facility] White blood cell (WBC) count Ordered By: Mirna Lam on 06-13-2024 WBC (Bld) [#/Vol] 8.0 10*3/uL Normal 4.4-11.0 [facility] Comment on above: Performed By: #### L 100.0100 ####[facility] [address] [place], [address] White blood cell (WBC) count 8.0 K/mm3 4.4-11.0 [facility] Stool Occult Blood iFOBon STOB Normal [facility] Comment on above: Performed By: #### M 100.7900 ####[facility] [address] [place], [address] Stool gastrointestinal hemog lobin detection by immunologic methodOrdered By: Sosa Silva on 06-10-2024 Lower GI hemoglobin IA Ql (Stl) [facility] Wound Cultureon 06-10-2024 WC Normal [facility] Comment on above: Performed By: #### M 100.2000, M100.4001, M100.3000 ####[facility] [address] [place], [address] Gram Stainon 06-09-2024 GS LEFT MEDIAN ANKLE GR AM STAIN Gram Stain Rare Gram positive cocci Normal [facility] Comment on above: Performed By: #### M 100.2000, M100.4001, M100.3000 ####[facility] [address] [place], [address] Absolute lymphocyte countOrd ered By: Sosa Silva on 06-08-2024 Lymphocytes Auto (Unsp spec) [#/Vol] 0.42 10*3/uL Low 0.83-4.51 [facility] Absolute neutrophil countOrd ered By: Sosa Silva on 06-08-2024 Absolute neutrophil count 5.7 X10^3/uL 2.0-7.7 [facility] Anaerobic cultureOrdered By: Rasta Mazariegos on 06-08-2024 Bacteria identified Anaer cx Nom (Unsp spec) No anaerobic bacteria isolated. [facility] Automated lymphocyte count a s percentage of total leukocytesOrdered By: Sosa Silva on 06-08-2024 Lymphocytes/100 WBC Auto (Unsp spec) 6.4 % Low 19-41 [facility] Bacteria identified Anaer cx Nom (Unsp spec)Ordered By: Rasta Mazariegos on 06-08-2024 Anaerobic culture No anaerobic bacteri a isolated. [facility] Basophil percentageOrdered B y: Sosa Silva on 06-08-2024 Basophils/100 WBC (Bld) 0.2 % 0-1 [facility] Basophil percentage 0.2 % 0-1 [facility] CBC W/Diff, Automatedon 04- Absolute Lymph 0.42 X10 3/uL Low 0.83-4.51 [facility] Comment on above: Performed By: #### L 100.0100 ####[facility] [address] [place], [address] Absolute Neut 5.7 X10 3/uL Normal 2.0-7.7 [facility] Comment on above: Performed By: #### L 100.0100 ####[facility] [address] [place], [address] Basophils/100 WBC (Bld) 0.2 % Normal 0-1 [facility] Comment on above: Performed By: #### L 100.0100 ####[facility] [address] [place], [address] Eosinophils/100 WBC (Bld) 0.8 % Normal 0-5 [facility] Comment on above: Performed By: #### L 100.0100 ####[facility] [address] [place], [address] Erythrocyte distribution width (RBC) [Ratio] 16.5 % High 11.6-14.6 [facility] Comment on above: Performed By: #### L 100.0100 ####[facility] [address] [place], [address] Hematocrit (Bld) [Volume fraction] 26.7 % Low 40-54 [facility] Comment on above: Performed By: #### L 100.0100 ####[facility] [address] [place], [address] Hemoglobin (Bld) [Mass/Vol] 8.2 g/dL Low 13.0-16.5 [facility] Comment on above: Performed By: #### L 100.0100 ####[facility] [address] [place], [address] IG% 0.800 Normal 0.0-0.9 [facility] Comment on above: Result Comment: IG% - Immature Granulocytes (promyelocytes, myelocytes andmetamyelocytes) > 1% indicates that a LEFT SHIFT is Present. Performed By: #### L 100.0100 ####[facility] [address] [place], [address] Lymphocytes/100 WBC (Bld) 6.4 % Low 19-41 [facility] Comment on above: Performed By: #### L 100.0100 ####[facility] [address] [place], [address] MCH (RBC) [Entitic mass] 27.9 pg Normal 27.0-32.0 [facility] Comment on above: Performed By: #### L 100.0100 ####[facility] [address] [place], [address] MCHC (RBC) [Mass/Vol] 30.7 g/dL Low 32-36 [facility] Comment on above: Performed By: #### L 100.0100 ####[facility] [address] [place], [address] MCV (RBC) [Entitic vol] 90.8 fL Normal 80-94 [facility] Comment on above: Performed By: #### L 100.0100 ####[facility] [address] [place], [address] Monocytes/100 WBC (Bld) 5.8 % Normal 0-10 [facility] Comment on above: Performed By: #### L 100.0100 ####[facility] [address] [place], [address] Neutrophils/100 WBC (Bld) 86.0 % High 47-70 [facility] Comment on above: Performed By: #### L 100.0100 ####[facility] [address] [place], [address] Nucleated RBC (Bld) [#/Vol] 0.3 10*3/uL Normal 0-5 [facility] Comment on above: Performed By: #### L 100.0100 ####[facility] [address] [place], [address] Platelet mean volume (Bld) [Entitic vol] 9.3 fL Normal 6.2-12.0 [facility] Comment on above: Performed By: #### L 100.0100 ####[facility] [address] [place], [address] Platelets (Bld) [#/Vol] 190 10*3/uL Normal 150-450 [facility] Comment on above: Performed By: #### L 100.0100 ####[facility] [address] [place], [address] RBC (Bld) [#/Vol] 2.94 10*6/uL Low 4.6-6.2 [facility] Comment on above: Performed By: #### L 100.0100 ####[facility] [address] [place], [address] RDW SD 53.4 fl High 35.1-43.9 [facility] Comment on above: Performed By: #### L 100.0100 ####[facility] [address] [place], [place], [id number] WBC (Bld) [#/Vol] 6.6 10*3/uL Normal 4.4-11.0 [facility] Comment on above: Performed By: #### L 100.0100 ####[facility] [address] [place], [place], [id number] Eosinophil percentageOrdered By: Sosa Silva on 06-08-2024 Eosinophils/100 WBC (Bld) 0.8 % 0-5 [facility] Eosinophil percentage 0.8 % 0-5 [facility] Erythrocyte distribution wid th (RBC) [Ratio]Ordered By: Sosa Silva on 06-08-2024 Erythrocyte distribution width ratio 16.5 % High 11.6-14.6 [facility] Erythrocyte distribution width standard deviation 53.4 fl High 35.1-43.9 [facility] Erythrocyte distribution wid th ratioOrdered By: Sosa Silva on 06-08-2024 Erythrocyte distribution width (RBC) [Ratio] 16.5 % High 11.6-14.6 [facility] Erythrocyte distribution wid th standard deviationOrdered By: Sosa Silva on 06-08-2024 Erythrocyte distribution width (RBC) [Ratio] 53.4 fl High 35.1-43.9 [facility] Gastroenterology Visit Repor ton 06-08-2024 Gastroenterology Visit Report Normal [facility] Gram stainOrdered By: Wayne Mazariegos on 06-08-2024 Microscopic observation Gram stain Nom (Unsp spec) [facility] Hematocrit Auto (Bld) [Volum e fraction]Ordered By: Sosa Silva on 06-08-2024 Hematocrit (Bld) [Volume fraction] 26.7 % Low 40-54 [facility] Automated blood hematocrit (percentage) 26.7 % Low 40-54 [facility] Hemoglobin measurementOrdere d By: Sosa Silva on 06-08-2024 Hemoglobin (Bld) [Mass/Vol] 8.2 g/dL Low 13.0-16.5 [facility] Hemoglobin measurement 8.2 g/dL Low 13.0-16.5 [facility] Immature granulocytes/100 WB C Auto (Bld)Ordered By: Sosa Silva on 06-08-2024 Immature granulocytes/100 WBC (Bld) 0.800 % 0.0-0.9 [facility] Automated immature granulocyte percentage 0.800 % 0.0-0.9 [facility] Lymphocytes Auto (Unsp spec) [#/Vol]Ordered By: Sosa Silva on 06-08-2024 Absolute lymphocyte count 0.42 X10^3/uL Low 0.83-4.51 [facility] Lymphocytes/100 WBC Auto (Un sp spec)Ordered By: Sosa Silva on 06-08-2024 Automated lymphocyte count as percentage of total leukocytes 6.4 % Low 19-41 [facility] MCV (RBC) [Entitic vol]Order ed By: Sosa Silva on 06-08-2024 MCV (mean corpuscular volume) determination 90.8 fL 80-94 [facility] MCV (mean corpuscular volume ) determinationOrdered By: Sosa Silva on 06-08-2024 MCV (RBC) [Entitic vol] 90.8 fL 80-94 [facility] Mean corpuscular hemoglobin (MCH) determinationOrdered By: Sosa Silva on 06-08-2024 MCH (RBC) [Entitic mass] 27.9 pg 27.0-32.0 [facility] Mean corpuscular hemoglobin (MCH) determination 27.9 pg 27.0-32.0 [facility] Mean corpuscular hemoglobin concentration (MCHC) determinationOrdered By: Sosa Silva on 06-08-2024 Mean corpuscular hemoglobin concentration (MCHC) determination 30.7 g/dL Low 32-36 [facility] Mean platelet volume determi nationOrdered By: Sosa Silva on 06-08-2024 Mean platelet volume determination 9.3 fl 6.2-12.0 [facility] Monocyte percentageOrdered B y: Sosa Silva on 06-08-2024 Monocytes/100 WBC (Bld) 5.8 % 0-10 [facility] Monocyte percentage 5.8 % 0-10 [facility] Neutrophil percentageOrdered By: Sosa Silva on 06-08-2024 Neutrophils/100 WBC (Bld) 86.0 % High 47-70 [facility] Neutrophil percentage 86.0 % High 47-70 [facility] Nucleated red blood cell per centageOrdered By: Sosa Silva on 06-08-2024 Nucleated red blood cell percentage 0.3 % 0-5 [facility] Platelet countOrdered By: Paula Silva on 06-08-2024 Platelets (Bld) [#/Vol] 190 10*3/uL 150-450 [facility] Platelet count 190 K/mm3 150-450 [facility] RBC Auto (Bld) [#/Vol]Ordere d By: Sosa Silva on 06-08-2024 RBC (Bld) [#/Vol] 2.94 10*6/uL Low 4.6-6.2 [facility] Automated blood erythrocyte count 2.94 M/mm3 Low 4.6-6.2 [facility] Routine wound cultureOrdered By: Rasta Mazariegos on 06-08-2024 Routine wound culture Staphylococcus aureus Abnormal [facility] Routine wound culture Negative Abnormal [facility] White blood cell (WBC) count Ordered By: Sosa Silva on 06-08-2024 WBC (Bld) [#/Vol] 6.6 10*3/uL 4.4-11.0 [facility] White blood cell (WBC) count 6.6 K/mm3 4.4-11.0 [facility] Basic Metabolic Profile (BMP )on 06-07-2024 BUN Normal 4-19 [facility] Comment on above: Result Comment: Canc elled via OM: Order cancelled - Patient discharged Performed By: #### L 100.0500, L500.2500 ####[facility] [address] [place], [address] BUN/CRE Normal 10-20 [facility] Comment on above: Result Comment: Canc elled via OM: Order cancelled - Patient discharged Performed By: #### L 100.0500, L500.2500 ####[facility] [address] [place], [address] Calcium Normal 7.6-11.0 [facility] Comment on above: Result Comment: Canc elled via OM: Order cancelled - Patient discharged Performed By: #### L 100.0500, L500.2500 ####[facility] [address] [place], [address] CL Normal 98-108 [facility] Comment on above: Result Comment: Canc elled via OM: Order cancelled - Patient discharged Performed By: #### L 100.0500, L500.2500 ####[facility] [address] [place], [address] CO2 Normal 21.0-32.0 [facility] Comment on above: Result Comment: Canc elled via OM: Order cancelled - Patient discharged Performed By: #### L 100.0500, L500.2500 ####[facility] [address] [place], [address] CREAT,SERUM Normal 0.70-1.20 [facility] Comment on above: Result Comment: Canc elled via OM: Order cancelled - Patient discharged Performed By: #### L 100.0500, L500.2500 ####[facility] [address] [place], [address] eGFR Normal >60 [facility] Comment on above: Result Comment: Canc elled via OM: Order cancelled - Patient discharged Performed By: #### L 100.0500, L500.2500 ####[facility] [address] [place], [address] GAP Normal 5-15 [facility] Comment on above: Result Comment: Canc elled via OM: Order cancelled - Patient discharged Performed By: #### L 100.0500, L500.2500 ####[facility] [address] [place], [address] GLU Normal 70-99 [facility] Comment on above: Result Comment: Canc elled via OM: Order cancelled - Patient discharged Performed By: #### L 100.0500, L500.2500 ####[facility] [address] [place], [address] Potassium Normal 3.3-5.1 [facility] Comment on above: Result Comment: Canc elled via OM: Order cancelled - Patient discharged Performed By: #### L 100.0500, L500.2500 ####[facility] [address] [place], [address] Basic Metabolic Profile (BMP) Normal 133-145 [facility] Comment on above: Result Comment: Canc elled via OM: Order cancelled - Patient discharged Performed By: #### L 100.0500, L500.2500 ####[facility] [address] [place], [address] CBC-Complete Blood Cnt No Di ffon 06-07-2024 HCT Normal 40-54 [facility] Comment on above: Result Comment: Canc elled via OM: Order cancelled - Patient discharged Performed By: #### L 100.0500, L500.2500 ####[facility] [address] [place], [address] HGB Normal 13.0-16.5 [facility] Comment on above: Result Comment: Canc elled via OM: Order cancelled - Patient discharged Performed By: #### L 100.0500, L500.2500 ####[facility] [address] [place], [address] MCH Normal 27.0-32.0 [facility] Comment on above: Result Comment: Canc elled via OM: Order cancelled - Patient discharged Performed By: #### L 100.0500, L500.2500 ####[facility] [address] [place], [address] MCHC Normal 32-36 [facility] Comment on above: Result Comment: Canc elled via OM: Order cancelled - Patient discharged Performed By: #### L 100.0500, L500.2500 ####[facility] [address] [place], [address] MCV Normal 80-94 [facility] Comment on above: Result Comment: Canc elled via OM: Order cancelled - Patient discharged Performed By: #### L 100.0500, L500.2500 ####[facility] [address] [place], [address] PLT Normal 150-450 [facility] Comment on above: Result Comment: Canc elled via OM: Order cancelled - Patient discharged Performed By: #### L 100.0500, L500.2500 ####[facility] [address] [place], [address] RBC Normal 4.6-6.2 [facility] Comment on above: Result Comment: Canc elled via OM: Order cancelled - Patient discharged Performed By: #### L 100.0500, L500.2500 ####[facility] [address] [place], [address] RDW CV Normal 11.6-14.6 [facility] Comment on above: Result Comment: Canc elled via OM: Order cancelled - Patient discharged Performed By: #### L 100.0500, L500.2500 ####[facility] [address] [place], [address] RDW SD Normal 35.1-43.9 [facility] Comment on above: Result Comment: Canc elled via OM: Order cancelled - Patient discharged Performed By: #### L 100.0500, L500.2500 ####[facility] [address] [place], [address] WBC Normal 4.4-11.0 [facility] Comment on above: Result Comment: Canc elled via OM: Order cancelled - Patient discharged Performed By: #### L 100.0500, L500.2500 ####[facility] [address] [place], [address] CNPNon 06-07-2024 CNPN Normal [facility] Basic Metabolic Profile (BMP )on 06-06-2024 BUN Normal 4-19 [facility] Comment on above: Result Comment: Canc elled via OM: Order cancelled - Patient discharged Performed By: #### L 100.0500, L500.2500 ####[facility] [address] [place], [address] BUN/CRE Normal 10-20 [facility] Comment on above: Result Comment: Canc elled via OM: Order cancelled - Patient discharged Performed By: #### L 100.0500, L500.2500 ####[facility] [address] [place], [address] Calcium Normal 7.6-11.0 [facility] Comment on above: Result Comment: Canc elled via OM: Order cancelled - Patient discharged Performed By: #### L 100.0500, L500.2500 ####[facility] [address] [place], [address] CL Normal 98-108 [facility] Comment on above: Result Comment: Canc elled via OM: Order cancelled - Patient discharged Performed By: #### L 100.0500, L500.2500 ####[facility] [address] [place] [place], [address] CO2 Normal 21.0-32.0 [facility] Comment on above: Result Comment: Canc elled via OM: Order cancelled - Patient discharged Performed By: #### L 100.0500, L500.2500 ####[facility] [address] [place], [address] CREAT,SERUM Normal 0.70-1.20 [facility] Comment on above: Result Comment: Canc elled via OM: Order cancelled - Patient discharged Performed By: #### L 100.0500, L500.2500 ####[facility] [address] [place], [address] eGFR Normal >60 [facility] Comment on above: Result Comment: Canc elled via OM: Order cancelled - Patient discharged Performed By: #### L 100.0500, L500.2500 ####[facility] [address] [place], [address] GAP Normal 5-15 [facility] Comment on above: Result Comment: Canc elled via OM: Order cancelled - Patient discharged Performed By: #### L 100.0500, L500.2500 ####[facility] [address] [place], [address] GLU Normal 70-99 [facility] Comment on above: Result Comment: Canc elled via OM: Order cancelled - Patient discharged Performed By: #### L 100.0500, L500.2500 ####[facility] [address] [place], [address] Potassium Normal 3.3-5.1 [facility] Comment on above: Result Comment: Canc elled via OM: Order cancelled - Patient discharged Performed By: #### L 100.0500, L500.2500 ####[facility] [address] [place], [address] Basic Metabolic Profile (BMP) Normal 133-145 [facility] Comment on above: Result Comment: Canc elled via OM: Order cancelled - Patient discharged Performed By: #### L 100.0500, L500.2500 ####[facility] [address] [place], [address] CBC-Complete Blood Cnt No Di ffon 06-06-2024 HCT Normal 40-54 [facility] Comment on above: Result Comment: Canc elled via OM: Order cancelled - Patient discharged Performed By: #### L 100.0500, L500.2500 ####[facility] [address] [place], [address] HGB Normal 13.0-16.5 [facility] Comment on above: Result Comment: Canc elled via OM: Order cancelled - Patient discharged Performed By: #### L 100.0500, L500.2500 ####[facility] [address] [place], [address] MCH Normal 27.0-32.0 [facility] Comment on above: Result Comment: Canc elled via OM: Order cancelled - Patient discharged Performed By: #### L 100.0500, L500.2500 ####[facility] [address] [place], [address] MCHC Normal 32-36 [facility] Comment on above: Result Comment: Canc elled via OM: Order cancelled - Patient discharged Performed By: #### L 100.0500, L500.2500 ####[facility] [address] [place], [address] MCV Normal 80-94 [facility] Comment on above: Result Comment: Canc elled via OM: Order cancelled - Patient discharged Performed By: #### L 100.0500, L500.2500 ####[facility] [address] [place], [address] PLT Normal 150-450 [facility] Comment on above: Result Comment: Canc elled via OM: Order cancelled - Patient discharged Performed By: #### L 100.0500, L500.2500 ####[facility] [address] [place], [address] RBC Normal 4.6-6.2 [facility] Comment on above: Result Comment: Canc elled via OM: Order cancelled - Patient discharged Performed By: #### L 100.0500, L500.2500 ####[facility] [address] [place], [address] RDW CV Normal 11.6-14.6 [facility] Comment on above: Result Comment: Canc elled via OM: Order cancelled - Patient discharged Performed By: #### L 100.0500, L500.2500 ####[facility] [address] [place], [address] RDW SD Normal 35.1-43.9 [facility] Comment on above: Result Comment: Canc elled via OM: Order cancelled - Patient discharged Performed By: #### L 100.0500, L500.2500 ####[facility] [address] [place], [address] WBC Normal 4.4-11.0 [facility] Comment on above: Result Comment: Canc elled via OM: Order cancelled - Patient discharged Performed By: #### L 100.0500, L500.2500 ####[facility] [address] [place], [address] Culture, Anaerobic Any Sourc mariah 06-06-2024 CUAN DO GRAM STAIN L MED ANKLE No anaerobic bacteria isolated. Normal [facility] Comment on above: Performed By: #### M 100.2000, M100.3000, M100.4001 ####[facility] [address] [place], [address] Anion gap [Moles/Vol]Ordered By: Jacob Suazo on 06-05-2024 Anion gap in Serum or Plasma 8 - [facility] Anion gap in Serum or Plasma Ordered By: Jacob Suazo on 06-05-2024 Anion gap [Moles/Vol] 8 mmol/L - [facility] BUN/creatinine ratioOrdered By: Jacob Suazo on 06-05-2024 Urea nitrogen/Creatinine [Mass ratio] 31.9 mg/mg High - [facility] BUN/creatinine ratio 31.9 RATIO High - [facility] Basic Metabolic Profile (BMP )on 06-05-2024 BUN/CRE 31.9 RATIO High 10-20 [facility] Comment on above: Performed By: #### L 100.0500, L500.2500 ####[facility] [address] [place], [address] Calcium [Mass/Vol] 7.7 mg/dL Normal 7.6-11.0 [facility] Comment on above: Performed By: #### L 100.0500, L500.2500 ####[facility] [address] [place], [address] Chloride [Moles/Vol] 110 mmol/L High 98-108 [facility] Comment on above: Performed By: #### L 100.0500, L500.2500 ####[facility] [address] [place], [address] CO2 [Moles/Vol] 21.6 mmol/L Normal 21.0-32.0 [facility] Comment on above: Performed By: #### L 100.0500, L500.2500 ####[facility] [address] [place], [address] Creatinine [Mass/Vol] 0.65 mg/dL Low 0.70-1.20 [facility] Comment on above: Performed By: #### L 100.0500, L500.2500 ####[facility] [address] [place], [address] ECRCL 76.82 ml/min Normal 50-250 [facility] Comment on above: Performed By: #### L 100.0500, L500.2500 ####[facility] [address] [place], [address] GAP 8 Normal 5-15 [facility] Comment on above: Performed By: #### L 100.0500, L500.2500 ####[facility] [address] [place], [address] GFR/1.73 sq M.predicted among non-blacks MDRD (S/P/Bld) [Vol rate/Area] 95 mL/min/{1.73_m2} Normal >60 [facility] Comment on above: Result Comment: mL/m in/1.73m2 CKD-EPI Creatinine Equation (2020) Performed By: #### L 100.0500, L500.2500 ####[facility] [address] [place], [address] Glucose [Mass/Vol] 93 mg/dL Normal 70-99 [facility] Comment on above: Performed By: #### L 100.0500, L500.2500 ####[facility] [address] [place], [address] Potassium [Moles/Vol] 3.9 mmol/L Normal 3.3-5.1 [facility] Comment on above: Performed By: #### L 100.0500, L500.2500 ####[facility] [address] [place], [address] Sodium [Moles/Vol] 139 mmol/L Normal 133-145 [facility] Comment on above: Performed By: #### L 100.0500, L500.2500 ####[facility] [address] [place], [address] Urea nitrogen [Mass/Vol] 21 mg/dL High 4-19 [facility] Comment on above: Performed By: #### L 100.0500, L500.2500 ####[facility] [address] [place], [address] CBC-Complete Blood Cnt No Di ffon 06-05-2024 Erythrocyte distribution width (RBC) [Ratio] 16.9 % High 11.6-14.6 [facility] Comment on above: Performed By: #### L 100.0500, L500.2500 ####[facility] [address] [place], [address] Hematocrit (Bld) [Volume fraction] 26.4 % Low 40-54 [facility] Comment on above: Performed By: #### L 100.0500, L500.2500 ####[facility] [address] [place], [address] Hemoglobin (Bld) [Mass/Vol] 8.2 g/dL Low 13.0-16.5 [facility] Comment on above: Performed By: #### L 100.0500, L500.2500 ####[facility] [address] [place], [address] MCH (RBC) [Entitic mass] 27.6 pg Normal 27.0-32.0 [facility] Comment on above: Performed By: #### L 100.0500, L500.2500 ####[facility] [address] [place], [address] MCHC (RBC) [Mass/Vol] 31.1 g/dL Low 32-36 [facility] Comment on above: Performed By: #### L 100.0500, L500.2500 ####[facility] [address] [place], [address] MCV (RBC) [Entitic vol] 88.9 fL Normal 80-94 [facility] Comment on above: Performed By: #### L 100.0500, L500.2500 ####[facility] [address] [place], [address] Platelet mean volume (Bld) [Entitic vol] 9.0 fL Normal 6.2-12.0 [facility] Comment on above: Performed By: #### L 100.0500, L500.2500 ####[facility] [address] [place], [address] Platelets (Bld) [#/Vol] 170 10*3/uL Normal 150-450 [facility] Comment on above: Performed By: #### L 100.0500, L500.2500 ####[facility] [address] [place], [address] RBC (Bld) [#/Vol] 2.97 10*6/uL Low 4.6-6.2 [facility] Comment on above: Performed By: #### L 100.0500, L500.2500 ####[facility] [address] [place], [address] RDW SD 54.4 fl High 35.1-43.9 [facility] Comment on above: Performed By: #### L 100.0500, L500.2500 ####[facility] [address] [place], [address] WBC (Bld) [#/Vol] 12.7 10*3/uL High 4.4-11.0 [facility] Comment on above: Performed By: #### L 100.0500, L500.2500 ####[facility] [address] [place], [address] Calcium [Mass/Vol]Ordered By : Jacob Suazo on 06-05-2024 Serum or plasma calcium measurement (mass/volume) 7.7 mg/dL 7.6-11.0 [facility] Carbon dioxide, total [Moles /volume] in Central venous bloodOrdered By: Jacob Suazo on 06-05-2024 CO2 [Moles/Vol] 21.6 mmol/L 21.0-32.0 [facility] Carbon dioxide, total [Moles/volume] in Central venous blood 21.6 mmol/L 21.0-32.0 [facility] Chloride assayOrdered By: Neto Suazo on 06-05-2024 Chloride [Moles/Vol] 110 mmol/L High 98-108 [facility] Chloride assay 110 mmol/L High 98-108 [facility] Creatinine [Mass/Vol]Ordered By: Jacob Suazo on 06-05-2024 Serum creatinine measurement (mass/volume) 0.65 mg/dL Low 0.70-1.20 [facility] Discharge Instructionon 04-0 Discharge Instruction Normal [facility] Erythrocyte distribution wid th (RBC) [Ratio]Ordered By: Jacob Suazo on 06-05-2024 Erythrocyte distribution width ratio 16.9 % High 11.6-14.6 [facility] Erythrocyte distribution width standard deviation 54.4 fl High 35.1-43.9 [facility] Erythrocyte distribution wid th ratioOrdered By: Jacob Suazo on 06-05-2024 Erythrocyte distribution width (RBC) [Ratio] 16.9 % High 11.6-14.6 [facility] Erythrocyte distribution wid th standard deviationOrdered By: Jacob Suazo on 06-05-2024 Erythrocyte distribution width (RBC) [Ratio] 54.4 fl High 35.1-43.9 [facility] Estimation of creatinine marybel aranceOrdered By: Jacob Suazo on 06-05-2024 Estimation of creatinine clearance 76.82 ml/min 50-250 [facility] GFR/1.73 sq M.predicted matilda g non-blacks MDRD (S/P/Bld) [Vol rate/Area]Ordered By: Jacob Suazo on 06-05-2024 Glomerular filtration rate (GFR) estimation/1.73 sq m using serum, plasma, or whole b 95 >60 [facility] Glomerular filtration rate ( GFR) estimation/1.73 sq m using serum, plasma, or whole bOrdered By: Jacob Suazo on 06-05-2024 GFR/1.73 sq M.predicted among non-blacks MDRD (S/P/Bld) [Vol rate/Area] 95 mL/min/{1.73_m2} >60 [facility] Glucose [Mass/Vol]Ordered By : Jacob Suazo on 06-05-2024 Serum glucose measurement (mass/volume) 93 mg/dL 70-99 [facility] Hematocrit Auto (Bld) [Volum e fraction]Ordered By: Jacob Suazo on 06-05-2024 Hematocrit (Bld) [Volume fraction] 26.4 % Low 40-54 [facility] Automated blood hematocrit (percentage) 26.4 % Low 40-54 [facility] Hemoglobin measurementOrdere d By: Jacob Suazo on 06-05-2024 Hemoglobin (Bld) [Mass/Vol] 8.2 g/dL Low 13.0-16.5 [facility] Hemoglobin measurement 8.2 g/dL Low 13.0-16.5 [facility] MCV (RBC) [Entitic vol]Order ed By: Jacob Suazo on 06-05-2024 MCV (mean corpuscular volume) determination 88.9 fL 80-94 [facility] MCV (mean corpuscular volume ) determinationOrdered By: Jacob Suazo on 06-05-2024 MCV (RBC) [Entitic vol] 88.9 fL 80-94 [facility] Mean corpuscular hemoglobin (MCH) determinationOrdered By: Jacob Suazo on 06-05-2024 MCH (RBC) [Entitic mass] 27.6 pg 27.0-32.0 [facility] Mean corpuscular hemoglobin (MCH) determination 27.6 pg 27.0-32.0 [facility] Mean corpuscular hemoglobin concentration (MCHC) determinationOrdered By: Jacob Suazo on 06-05-2024 Mean corpuscular hemoglobin concentration (MCHC) determination 31.1 g/dL Low 32-36 [facility] Mean platelet volume determi nationOrdered By: Jacob Suazo on 06-05-2024 Mean platelet volume determination 9.0 fl 6.2-12.0 [facility] Platelet countOrdered By: Neto Suazo on 06-05-2024 Platelets (Bld) [#/Vol] 170 10*3/uL 150-450 [facility] Platelet count 170 K/mm3 150-450 [facility] Potassium (Unsp spec) [Mass/ Vol]Ordered By: Jacob Suazo on 06-05-2024 Potassium measurement (mass/volume) 3.9 mmol/L 3.3-5.1 [facility] Potassium measurement (mass/ volume)Ordered By: Jacob Suazo on 06-05-2024 Potassium (Unsp spec) [Mass/Vol] 3.9 mmol/L 3.3-5.1 [facility] RBC Auto (Bld) [#/Vol]Ordere d By: Jacob Suazo on 06-05-2024 RBC (Bld) [#/Vol] 2.97 10*6/uL Low 4.6-6.2 [facility] Automated blood erythrocyte count 2.97 M/mm3 Low 4.6-6.2 [facility] Serum creatinine measurement (mass/volume)Ordered By: Jacob Suazo on 06-05-2024 Creatinine [Mass/Vol] 0.65 mg/dL Low 0.70-1.20 [facility] Serum glucose measurement (m ass/volume)Ordered By: Jacob Suazo on 06-05-2024 Glucose [Mass/Vol] 93 mg/dL 70-99 [facility] Serum or plasma calcium ry urement (mass/volume)Ordered By: Jacob Suazo on 06-05-2024 Calcium [Mass/Vol] 7.7 mg/dL 7.6-11.0 [facility] Serum or plasma urea nitroge n measurement (mass/volume)Ordered By: Jacob Suazo on 06-05-2024 Urea nitrogen [Mass/Vol] 21 mg/dL High 06-18 [facility] Sodium levelOrdered By: Terrell Suazo on 06-05-2024 Sodium [Moles/Vol] 139 mmol/L 133-145 [facility] Sodium level 139 mmol/L 133-145 [facility] Urea nitrogen [Mass/Vol]Orde red By: Jacob Suazo on 06-05-2024 Serum or plasma urea nitrogen measurement (mass/volume) 21 mg/dL High - [facility] White blood cell (WBC) count Ordered By: Jacob Suazo on 06-05-2024 WBC (Bld) [#/Vol] 12.7 10*3/uL High 4.4-11.0 [facility] White blood cell (WBC) count 12.7 K/mm3 High 4.4-11.0 [facility] Absolute lymphocyte countOrd ered By: Elizabeth Santamaria on 06-04-2024 Lymphocytes Auto (Unsp spec) [#/Vol] 0.66 10*3/uL Low 0.83-4.51 [facility] Absolute neutrophil countOrd ered By: Elizabeth Santamaria on 06-04-2024 Absolute neutrophil count 11.8 X10^3/uL High 2.0-7.7 [facility] Automated lymphocyte count a s percentage of total leukocytesOrdered By: Elizabeth Santamaria on 06-04-2024 Lymphocytes/100 WBC Auto (Unsp spec) 4.9 % Low 19-41 [facility] Basic Metabolic Profile (BMP )on 06-04-2024 BUN/CRE 38.3 RATIO High 10-20 [facility] Comment on above: Performed By: #### L 100.0100, L500.2500 ####[facility] [address] [place], [address] Calcium [Mass/Vol] 7.7 mg/dL Normal 7.6-11.0 [facility] Comment on above: Performed By: #### L 100.0100, L500.2500 ####[facility] [address] [place], [address] Chloride [Moles/Vol] 108 mmol/L Normal 98-108 [facility] Comment on above: Performed By: #### L 100.0100, L500.2500 ####[facility] [address] [place], [address] CO2 [Moles/Vol] 23.5 mmol/L Normal 21.0-32.0 [facility] Comment on above: Performed By: #### L 100.0100, L500.2500 ####[facility] [address] [place], [address] Creatinine [Mass/Vol] 1.03 mg/dL Normal 0.70-1.20 [facility] Comment on above: Performed By: #### L 100.0100, L500.2500 ####[facility] [address] [place], [address] ECRCL 59.67 ml/min Normal 50-250 [facility] Comment on above: Performed By: #### L 100.0100, L500.2500 ####[facility] [address] [place], [address] GAP 8 Normal 5-15 [facility] Comment on above: Performed By: #### L 100.0100, L500.2500 ####[facility] [address] [place], [address] GFR/1.73 sq M.predicted among non-blacks MDRD (S/P/Bld) [Vol rate/Area] 73 mL/min/{1.73_m2} Normal >60 [facility] Comment on above: Result Comment: mL/m in/1.73m2 CKD-EPI Creatinine Equation (2020) Performed By: #### L 100.0100, L500.2500 ####[facility] [address] [place], [address] Glucose [Mass/Vol] 124 mg/dL High 70-99 [facility] Comment on above: Performed By: #### L 100.0100, L500.2500 ####[facility] [address] [place], [address] Potassium [Moles/Vol] 4.7 mmol/L Normal 3.3-5.1 [facility] Comment on above: Performed By: #### L 100.0100, L500.2500 ####[facility] [address] [place], [address] Sodium [Moles/Vol] 139 mmol/L Normal 133-145 [facility] Comment on above: Performed By: #### L 100.0100, L500.2500 ####[facility] [address] [place], [address] Urea nitrogen [Mass/Vol] 39 mg/dL High 4-19 [facility] Comment on above: Performed By: #### L 100.0100, L500.2500 ####[facility] [address] [place], [address] Basophil percentageOrdered B y: Elizabeth Santamaria on 06-04-2024 Basophils/100 WBC (Bld) 0.1 % 0-1 [facility] CBC W/Diff, Automatedon Absolute Lymph 0.66 X10 3/uL Low 0.83-4.51 [facility] Comment on above: Performed By: #### L 100.0100, L500.2500 ####[facility] [address] [place], [address] Absolute Neut 11.8 X10 3/uL High 2.0-7.7 [facility] Comment on above: Performed By: #### L 100.0100, L500.2500 ####[facility] [address] [place], [address] Basophils/100 WBC (Bld) 0.1 % Normal 0-1 [facility] Comment on above: Performed By: #### L 100.0100, L500.2500 ####[facility] [address] [place], [address] Eosinophils/100 WBC (Bld) 0.1 % Normal 0-5 [facility] Comment on above: Performed By: #### L 100.0100, L500.2500 ####[facility] [address] [place], [address] Erythrocyte distribution width (RBC) [Ratio] 16.4 % High 11.6-14.6 [facility] Comment on above: Performed By: #### L 100.0100, L500.2500 ####[facility] [address] [place], [address] Hematocrit (Bld) [Volume fraction] 29.3 % Low 40-54 [facility] Comment on above: Performed By: #### L 100.0100, L500.2500 ####[facility] [address] [place], [address] Hemoglobin (Bld) [Mass/Vol] 9.2 g/dL Low 13.0-16.5 [facility] Comment on above: Performed By: #### L 100.0100, L500.2500 ####[facility] [address] [place], [address] IG% 1.100 High 0.0-0.9 [facility] Comment on above: Result Comment: IG% - Immature Granulocytes (promyelocytes, myelocytes andmetamyelocytes) > 1% indicates that a LEFT SHIFT is Present. Performed By: #### L 100.0100, L500.2500 ####[facility] [address] [place], [address] Lymphocytes/100 WBC (Bld) 4.9 % Low 19-41 [facility] Comment on above: Performed By: #### L 100.0100, L500.2500 ####[facility] [address] [place], [address] MCH (RBC) [Entitic mass] 27.5 pg Normal 27.0-32.0 [facility] Comment on above: Performed By: #### L 100.0100, L500.2500 ####[facility] [address] [place], [address] MCHC (RBC) [Mass/Vol] 31.4 g/dL Low 32-36 [facility] Comment on above: Performed By: #### L 100.0100, L500.2500 ####[facility] [address] [place], [address] MCV (RBC) [Entitic vol] 87.7 fL Normal 80-94 [facility] Comment on above: Performed By: #### L 100.0100, L500.2500 ####[facility] [address] [place], [address] Monocytes/100 WBC (Bld) 6.6 % Normal 0-10 [facility] Comment on above: Performed By: #### L 100.0100, L500.2500 ####[facility] [address] [place], [address] Neutrophils/100 WBC (Bld) 87.2 % High 47-70 [facility] Comment on above: Performed By: #### L 100.0100, L500.2500 ####[facility] [address] [place], [address] Nucleated RBC (Bld) [#/Vol] 0.1 10*3/uL Normal 0-5 [facility] Comment on above: Performed By: #### L 100.0100, L500.2500 ####[facility] [address] [place], [address] Platelet mean volume (Bld) [Entitic vol] 8.8 fL Normal 6.2-12.0 [facility] Comment on above: Performed By: #### L 100.0100, L500.2500 ####[facility] [address] [place], [address] Platelets (Bld) [#/Vol] 186 10*3/uL Normal 150-450 [facility] Comment on above: Performed By: #### L 100.0100, L500.2500 ####[facility] [address] [place], [address] RBC (Bld) [#/Vol] 3.34 10*6/uL Low 4.6-6.2 [facility] Comment on above: Performed By: #### L 100.0100, L500.2500 ####[facility] [address] [place], [address] RDW SD 52.3 fl High 35.1-43.9 [facility] Comment on above: Performed By: #### L 100.0100, L500.2500 ####[facility] [address] [place], [address] WBC (Bld) [#/Vol] 13.5 10*3/uL High 4.4-11.0 [facility] Comment on above: Performed By: #### L 100.0100, L500.2500 ####[facility] [address] [place], [address] EGD Reporton 06-04-2024 EGD Report Normal [facility] Eosinophil percentageOrdered By: Elizabeth Santamaria on 06-04-2024 Eosinophils/100 WBC (Bld) 0.1 % 0-5 [facility] Eosinophil percentage 0.1 % 0-5 [facility] Immature granulocytes/100 WB C Auto (Bld)Ordered By: Elizabeth Santamaria on 06-04-2024 Immature granulocytes/100 WBC (Bld) 1.100 % High 0.0-0.9 [facility] Automated immature granulocyte percentage 1.100 % High 0.0-0.9 [facility] Lymphocytes Auto (Unsp spec) [#/Vol]Ordered By: Elizabeth Santamaria on 06-04-2024 Absolute lymphocyte count 0.66 X10^3/uL Low 0.83-4.51 [facility] Lymphocytes/100 WBC Auto (Un sp spec)Ordered By: Elizabeth Santamaria on 06-04-2024 Automated lymphocyte count as percentage of total leukocytes 4.9 % Low 19-41 [facility] MR/CON.PCM.GIon 06-04-2024 MR/CON.PCM.GI Normal [facility] MR/POSTOP.ANEon 06-04-2024 MR/POSTOP.ANE Normal [facility] MR/JEKFEQEU7ps 06-04-2024 MR/POSTOPAN2 Normal [facility] Monocyte percentageOrdered B y: Elizabeth Santamaria on 06-04-2024 Monocytes/100 WBC (Bld) 6.6 % 0-10 [facility] Monocyte percentage 6.6 % 0-10 [facility] Neutrophil percentageOrdered By: Elizabeth Santamaria on 06-04-2024 Neutrophils/100 WBC (Bld) 87.2 % High 47-70 [facility] Neutrophil percentage 87.2 % High 47-70 [facility] Wound Cultureon 06-04-2024 WC DO GRAM STAIN L MED ANKLE #1 Susceptibility not normally performed on this organism. Wound Culture Wound Culture Corynebacterium striatum Amount Growth Rare Normal [facility] Comment on above: Performed By: #### M 100.2000, M100.3000, M100.4001 ####[facility] [address] [place], [address] 12 Lead EKGon 06-03-2024 12 Lead EKG Normal [facility] Absolute neutrophil countOrd ered By: Aj Martinez on 06-03-2024 Absolute neutrophil count 18.5 X10^3/uL High 2.0-7.7 [facility] Anion gap [Moles/Vol]Ordered By: Aj Martinez on 06-03-2024 Anion gap in Serum or Plasma 11 5-15 [facility] BRCon 06-03-2024 RC Normal [facility] Comment on above: Result Comment: [id number] ON RC TRANSFUSED 06/03/[id number] ON RC TRANSFUSED 06/03/242322 Performed By: #### B RC ####[facility] [address] [place], [address] BUN/creatinine ratioOrdered By: Aj Martinez on 06-03-2024 BUN/creatinine ratio 30.8 RATIO High 10-20 [facility] Basic Metabolic Profile (BMP )on 06-03-2024 BUN/CRE 30.8 RATIO High 10-20 [facility] Comment on above: Performed By: #### L 100.0100, L500.2500 ####[facility] [address] [place], [address] Calcium [Mass/Vol] 9.0 mg/dL Normal 7.6-11.0 [facility] Comment on above: Performed By: #### L 100.0100, L500.2500 ####[facility] [address] [place], [address] Chloride [Moles/Vol] 102 mmol/L Normal 98-108 [facility] Comment on above: Performed By: #### L 100.0100, L500.2500 ####[facility] [address] [place], [address] CO2 [Moles/Vol] 25.7 mmol/L Normal 21.0-32.0 [facility] Comment on above: Performed By: #### L 100.0100, L500.2500 ####[facility] [address] [place], [address] Creatinine [Mass/Vol] 1.10 mg/dL Normal 0.70-1.20 [facility] Comment on above: Performed By: #### L 100.0100, L500.2500 ####[facility] [address] [place], [address] ECRCL 55.95 ml/min Normal 50-250 [facility] Comment on above: Performed By: #### L 100.0100, L500.2500 ####[facility] [address] [place], [address] GAP 11 Normal 5-15 [facility] Comment on above: Performed By: #### L 100.0100, L500.2500 ####[facility] [address] [place], [address] GFR/1.73 sq M.predicted among non-blacks MDRD (S/P/Bld) [Vol rate/Area] 67 mL/min/{1.73_m2} Normal >60 [facility] Comment on above: Result Comment: mL/m in/1.73m2 CKD-EPI Creatinine Equation (2020) Performed By: #### L 100.0100, L500.2500 ####[facility] [address] [place], [address] Glucose [Mass/Vol] 144 mg/dL High 70-99 [facility] Comment on above: Performed By: #### L 100.0100, L500.2500 ####[facility] [address] [place], [address] Potassium [Moles/Vol] 5.2 mmol/L High 3.3-5.1 [facility] Comment on above: Performed By: #### L 100.0100, L500.2500 ####[facility] [address] [place], [address] Sodium [Moles/Vol] 139 mmol/L Normal 133-145 [facility] Comment on above: Performed By: #### L 100.0100, L500.2500 ####[facility] [address] [place], [address] Urea nitrogen [Mass/Vol] 34 mg/dL High 4-19 [facility] Comment on above: Performed By: #### L 100.0100, L500.2500 ####[facility] [address] [place], [address] Basophil percentageOrdered B y: Aj Saul on 06-03-2024 Basophil percentage 0.1 % 0-1 [facility] CBC W/Diff, Automatedon - Absolute Lymph 0.73 X10 3/uL Low 0.83-4.51 [facility] Comment on above: Performed By: #### L 100.0100 ####[facility] [address] [place], [address] Absolute Neut 15.4 X10 3/uL High 2.0-7.7 [facility] Comment on above: Performed By: #### L 100.0100 ####[facility] [address] [place], [address] Basophils/100 WBC (Bld) 0.1 % Normal 0-1 [facility] Comment on above: Performed By: #### L 100.0100 ####[facility] [address] [place], [address] Eosinophils/100 WBC (Bld) 0.0 % Normal 0-5 [facility] Comment on above: Performed By: #### L 100.0100 ####[facility] [address] [place], [address] Erythrocyte distribution width (RBC) [Ratio] 16.2 % High 11.6-14.6 [facility] Comment on above: Performed By: #### L 100.0100 ####[facility] [address] [place], [address] Hematocrit (Bld) [Volume fraction] 28.1 % Low 40-54 [facility] Comment on above: Performed By: #### L 100.0100 ####[facility] [address] [place], [address] Hemoglobin (Bld) [Mass/Vol] 8.4 g/dL Low 13.0-16.5 [facility] Comment on above: Performed By: #### L 100.0100 ####[facility] [address] [place], [address] IG% 1.600 High 0.0-0.9 [facility] Comment on above: Result Comment: IG% - Immature Granulocytes (promyelocytes, myelocytes andmetamyelocytes) > 1% indicates that a LEFT SHIFT is Present. Performed By: #### L 100.0100 ####[facility] [address] [place], [address] Lymphocytes/100 WBC (Bld) 4.2 % Low 19-41 [facility] Comment on above: Performed By: #### L 100.0100 ####[facility] [address] [place], [address] MCH (RBC) [Entitic mass] 27.3 pg Normal 27.0-32.0 [facility] Comment on above: Performed By: #### L 100.0100 ####[facility] [address] [place], [address] MCHC (RBC) [Mass/Vol] 29.9 g/dL Low 32-36 [facility] Comment on above: Performed By: #### L 100.0100 ####[facility] [address] [place], [address] MCV (RBC) [Entitic vol] 91.2 fL Normal 80-94 [facility] Comment on above: Performed By: #### L 100.0100 ####[facility] [address] [place], [address] Monocytes/100 WBC (Bld) 5.4 % Normal 0-10 [facility] Comment on above: Performed By: #### L 100.0100 ####[facility] [address] [place], [address] Neutrophils/100 WBC (Bld) 88.7 % High 47-70 [facility] Comment on above: Performed By: #### L 100.0100 ####[facility] [address] [place], [address] Nucleated RBC (Bld) [#/Vol] 0.1 10*3/uL Normal 0-5 [facility] Comment on above: Performed By: #### L 100.0100 ####[facility] [address] [place], [address] Platelet mean volume (Bld) [Entitic vol] 9.3 fL Normal 6.2-12.0 [facility] Comment on above: Performed By: #### L 100.0100 ####[facility] [address] [place], [address] Platelets (Bld) [#/Vol] 277 10*3/uL Normal 150-450 [facility] Comment on above: Performed By: #### L 100.0100 ####[facility] [address] [place], [address] RBC (Bld) [#/Vol] 3.08 10*6/uL Low 4.6-6.2 [facility] Comment on above: Performed By: #### L 100.0100 ####[facility] [address] [place], [address] RDW SD 53.1 fl High 35.1-43.9 [facility] Comment on above: Performed By: #### L 100.0100 ####[facility] [address] [place], [address] WBC (Bld) [#/Vol] 17.3 10*3/uL High 4.4-11.0 [facility] Comment on above: Performed By: #### L 100.0100 ####[facility] [address] [place], [address] Absolute Lymph 0.65 X10 3/uL Low 0.83-4.51 [facility] Comment on above: Performed By: #### L 100.0100, L500.2500 ####[facility] [address] [place], [address] Absolute Neut 18.5 X10 3/uL High 2.0-7.7 [facility] Comment on above: Performed By: #### L 100.0100, L500.2500 ####[facility] [address] [place], [address] Basophils/100 WBC (Bld) 0.1 % Normal 0-1 [facility] Comment on above: Performed By: #### L 100.0100, L500.2500 ####[facility] [address] [place], [address] Eosinophils/100 WBC (Bld) 0.0 % Normal 0-5 [facility] Comment on above: Performed By: #### L 100.0100, L500.2500 ####[facility] [address] [place], [address] Erythrocyte distribution width (RBC) [Ratio] 16.1 % High 11.6-14.6 [facility] Comment on above: Performed By: #### L 100.0100, L500.2500 ####[facility] [address] [place], [address] Hematocrit (Bld) [Volume fraction] 34.1 % Low 40-54 [facility] Comment on above: Performed By: #### L 100.0100, L500.2500 ####[facility] [address] [place], [address] Hemoglobin (Bld) [Mass/Vol] 10.2 g/dL Low 13.0-16.5 [facility] Comment on above: Performed By: #### L 100.0100, L500.2500 ####[facility] [address] [place], [address] IG% 1.500 High 0.0-0.9 [facility] Comment on above: Result Comment: IG% - Immature Granulocytes (promyelocytes, myelocytes andmetamyelocytes) > 1% indicates that a LEFT SHIFT is Present. Performed By: #### L 100.0100, L500.2500 ####[facility] [address] [place], [address] Lymphocytes/100 WBC (Bld) 3.2 % Low 19-41 [facility] Comment on above: Performed By: #### L 100.0100, L500.2500 ####[facility] [address] [place], [address] MCH (RBC) [Entitic mass] 26.8 pg Low 27.0-32.0 [facility] Comment on above: Performed By: #### L 100.0100, L500.2500 ####[facility] [address] [place], [address] MCHC (RBC) [Mass/Vol] 29.9 g/dL Low 32-36 [facility] Comment on above: Performed By: #### L 100.0100, L500.2500 ####[facility] [address] [place], [address] MCV (RBC) [Entitic vol] 89.5 fL Normal 80-94 [facility] Comment on above: Performed By: #### L 100.0100, L500.2500 ####[facility] [address] [place], [address] Monocytes/100 WBC (Bld) 3.7 % Normal 0-10 [facility] Comment on above: Performed By: #### L 100.0100, L500.2500 ####[facility] [address] [place], [address] Neutrophils/100 WBC (Bld) 91.5 % High 47-70 [facility] Comment on above: Performed By: #### L 100.0100, L500.2500 ####[facility] [address] [place], [address] Nucleated RBC (Bld) [#/Vol] 0 10*3/uL Normal 0-5 [facility] Comment on above: Performed By: #### L 100.0100, L500.2500 ####[facility] [address] [place], [address] Platelet mean volume (Bld) [Entitic vol] 9.6 fL Normal 6.2-12.0 [facility] Comment on above: Performed By: #### L 100.0100, L500.2500 ####[facility] [address] [place], [address] Platelets (Bld) [#/Vol] 364 10*3/uL Normal 150-450 [facility] Comment on above: Performed By: #### L 100.0100, L500.2500 ####[facility] [address] [place], [address] RBC (Bld) [#/Vol] 3.81 10*6/uL Low 4.6-6.2 [facility] Comment on above: Performed By: #### L 100.0100, L500.2500 ####[facility] [address] [place], [address] RDW SD 52.9 fl High 35.1-43.9 [facility] Comment on above: Performed By: #### L 100.0100, L500.2500 ####[facility] [address] [place], [address] WBC (Bld) [#/Vol] 20.3 10*3/uL High 4.4-11.0 [facility] Comment on above: Performed By: #### L 100.0100, L500.2500 ####[facility] [address] [place], [address] Calcium [Mass/Vol]Ordered By : Aj Martinez on 06-03-2024 Serum or plasma calcium measurement (mass/volume) 9.0 mg/dL 7.6-11.0 [facility] Carbon dioxide, total [Moles /volume] in Central venous bloodOrdered By: Aj Martinez on 06-03-2024 Carbon dioxide, total [Moles/volume] in Central venous blood 25.7 mmol/L 21.0-32.0 [facility] Chest 1 View (Portable)on Chest 1 View (Portable) Normal [facility] Chloride assayOrdered By: Gómez Martinez on 06-03-2024 Chloride assay 102 mmol/L 98-108 [facility] Creatinine [Mass/Vol]Ordered By: Aj Martinez on 06-03-2024 Serum creatinine measurement (mass/volume) 1.10 mg/dL 0.70-1.20 [facility] Emergency Department Summary on 06-03-2024 Emergency Department Summary Normal [facility] Eosinophil percentageOrdered By: Aj Martinez on 06-03-2024 Eosinophil percentage 0.0 % 0-5 [facility] Erythrocyte distribution wid th (RBC) [Ratio]Ordered By: Aj Martinez on 06-03-2024 Erythrocyte distribution width ratio 16.1 % High 11.6-14.6 [facility] Erythrocyte distribution width standard deviation 52.9 fl High 35.1-43.9 [facility] Estimation of creatinine marybel aranceOrdered By: Aj Martinez on 06-03-2024 Estimation of creatinine clearance 55.95 ml/min 50-250 [facility] GFR/1.73 sq M.predicted matilda g non-blacks MDRD (S/P/Bld) [Vol rate/Area]Ordered By: Aj Martinez on 06-03-2024 Glomerular filtration rate (GFR) estimation/1.73 sq m using serum, plasma, or whole b 67 >60 [facility] Glucose [Mass/Vol]Ordered By : Aj Martinez on 06-03-2024 Serum glucose measurement (mass/volume) 144 mg/dL High 70-99 [facility] Gram Stainon 06-03-2024 GS DO GRAM STAIN L MED ANKLE Gram Stain No organisms seen No cells seen Normal [facility] Comment on above: Performed By: #### M 100.2000, M100.3000, M100.4001 ####[facility] [address] [place], [address] H AND P Exam - Hospitaliston 06-03-2024 H&P Exam - Hospitalist Normal [facility] Hematocrit Auto (Bld) [Volum e fraction]Ordered By: Aj Martinez on 06-03-2024 Automated blood hematocrit (percentage) 34.1 % Low 40-54 [facility] Hemoglobin measurementOrdere d By: Aj Martinez on 06-03-2024 Hemoglobin measurement 10.2 g/dL Low 13.0-16.5 [facility] Immature granulocytes/100 WB C Auto (Bld)Ordered By: Aj Martinez on 06-03-2024 Automated immature granulocyte percentage 1.500 % High 0.0-0.9 [facility] Lymphocytes Auto (Unsp spec) [#/Vol]Ordered By: Aj Martinez on 06-03-2024 Absolute lymphocyte count 0.65 X10^3/uL Low 0.83-4.51 [facility] Lymphocytes/100 WBC Auto (Un sp spec)Ordered By: Aj Martinez on 06-03-2024 Automated lymphocyte count as percentage of total leukocytes 3.2 % Low 19-41 [facility] MCV (RBC) [Entitic vol]Order ed By: Aj Martinez on 06-03-2024 MCV (mean corpuscular volume) determination 89.5 fL 80-94 [facility] Mean corpuscular hemoglobin (MCH) determinationOrdered By: Aj Martinez on 06-03-2024 Mean corpuscular hemoglobin (MCH) determination 26.8 pg Low 27.0-32.0 [facility] Mean corpuscular hemoglobin concentration (MCHC) determinationOrdered By: Aj Martinez on 06-03-2024 Mean corpuscular hemoglobin concentration (MCHC) determination 29.9 g/dL Low 32-36 [facility] Mean platelet volume determi nationOrdered By: Aj Martinez on 06-03-2024 Mean platelet volume determination 9.6 fl 6.2-12.0 [facility] Monocyte percentageOrdered B y: Aj Martinez on 06-03-2024 Monocyte percentage 3.7 % 0-10 [facility] Neutrophil percentageOrdered By: Aj Martinez on 06-03-2024 Neutrophil percentage 91.5 % High 47-70 [facility] Nucleated red blood cell per centageOrdered By: Aj Martinez on 06-03-2024 Nucleated red blood cell percentage 0 % 0-5 [facility] Platelet countOrdered By: Gómez Martinez on 06-03-2024 Platelet count 364 K/mm3 150-450 [facility] Potassium (Unsp spec) [Mass/ Vol]Ordered By: Aj Martinez on 06-03-2024 Potassium measurement (mass/volume) 5.2 mmol/L High 3.3-5.1 [facility] RBC Auto (Bld) [#/Vol]Ordere d By: Aj Martinez on 06-03-2024 Automated blood erythrocyte count 3.81 M/mm3 Low 4.6-6.2 [facility] Sodium levelOrdered By: Filemon Martinez on 06-03-2024 Sodium level 139 mmol/L 133-145 [facility] Type AND Screenon 06-03-2024 Ab SCREEN GEL Negative Normal [facility] Comment on above: Order Comment: HGI Performed By: #### B TS ####[facility] [address] [place], [place], [id number] Urea nitrogen [Mass/Vol]Orde red By: Aj Martinez on 06-03-2024 Serum or plasma urea nitrogen measurement (mass/volume) 34 mg/dL High 4-19 [facility] White blood cell (WBC) count Ordered By: Aj Martinez on 06-03-2024 White blood cell (WBC) count 20.3 K/mm3 High 4.4-11.0 [facility] CNPNon 06-02-2024 CNPN Normal [facility] Anaerobic cultureOrdered By: Rasta Mazariegos on 06-01-2024 Bacteria identified Anaer cx Nom (Unsp spec) No anaerobic bacteria isolated. [facility] Bacteria identified Anaer cx Nom (Unsp spec)Ordered By: Rasta Mazariegos on 06-01-2024 Anaerobic culture No anaerobic bacteri a isolated. [facility] CNOVon 06-01-2024 CNOV Normal [facility] Gram stainOrdered By: Wayne Mazariegos on 06-01-2024 Microscopic observation Gram stain Nom (Unsp spec) [facility] Routine wound cultureOrdered By: Rasta Mazariegos on 06-01-2024 Routine wound culture Corynebacterium striatum Abnormal [facility] Wound Ctr History AND Physic diogo 06-01-2024 Wound Ctr History & Physical Normal [facility] Culture, Blood (WB)on 2024 CUB Blood cultures x2, f rom two different sites No growth in 5 days. Normal [facility] Comment on above: Performed By: #### M 200.1000 ####[facility] [address] [place], [address] CNPNon 05-26-2024 CNPN Normal [facility] Anion gap [Moles/Vol]Ordered By: Jacob Suazo on 05-23-2024 Anion gap in Serum or Plasma 10 - [facility] Anion gap in Serum or Plasma Ordered By: Jacob Suazo on 05-23-2024 Anion gap [Moles/Vol] 10 mmol/L - [facility] BUN/creatinine ratioOrdered By: Jacob Suazo on 05-23-2024 Urea nitrogen/Creatinine [Mass ratio] 24.8 mg/mg High 10-20 [facility] BUN/creatinine ratio 24.8 RATIO High 10-20 [facility] Basic Metabolic Profile (BMP )on 05-23-2024 BUN/CRE 24.8 RATIO High 10-20 [facility] Comment on above: Performed By: #### L 500.2500, L100.0500 ####[facility] [address] [place], [address] Calcium [Mass/Vol] 9.2 mg/dL Normal 7.6-11.0 [facility] Comment on above: Performed By: #### L 500.2500, L100.0500 ####[facility] [address] [place], [address] Chloride [Moles/Vol] 105 mmol/L Normal 98-108 [facility] Comment on above: Performed By: #### L 500.2500, L100.0500 ####[facility] [address] [place], [address] CO2 [Moles/Vol] 25.9 mmol/L Normal 21.0-32.0 [facility] Comment on above: Performed By: #### L 500.2500, L100.0500 ####[facility] [address] [place], [address] Creatinine [Mass/Vol] 0.61 mg/dL Low 0.70-1.20 [facility] Comment on above: Performed By: #### L 500.2500, L100.0500 ####[facility] [address] [place], [address] ECRCL 78.56 ml/min Normal 50-250 [facility] Comment on above: Performed By: #### L 500.2500, L100.0500 ####[facility] [address] [place], [address] GAP 10 Normal 5-15 [facility] Comment on above: Performed By: #### L 500.2500, L100.0500 ####[facility] [address] [place], [address] GFR/1.73 sq M.predicted among non-blacks MDRD (S/P/Bld) [Vol rate/Area] 97 mL/min/{1.73_m2} Normal >60 [facility] Comment on above: Result Comment: mL/m in/1.73m2 CKD-EPI Creatinine Equation (2020) Performed By: #### L 500.2500, L100.0500 ####[facility] [address] [place], [address] Glucose [Mass/Vol] 165 mg/dL High 70-99 [facility] Comment on above: Performed By: #### L 500.2500, L100.0500 ####[facility] [address] [place], [address] Potassium [Moles/Vol] 4.2 mmol/L Normal 3.3-5.1 [facility] Comment on above: Performed By: #### L 500.2500, L100.0500 ####[facility] [address] [place], [address] Sodium [Moles/Vol] 140 mmol/L Normal 133-145 [facility] Comment on above: Performed By: #### L 500.2500, L100.0500 ####[facility] [address] [place], [address] Urea nitrogen [Mass/Vol] 15 mg/dL Normal 4-19 [facility] Comment on above: Performed By: #### L 500.2500, L100.0500 ####[facility] [address] [place], [address] CBC-Complete Blood Cnt No Di ffon 05-23-2024 Erythrocyte distribution width (RBC) [Ratio] 16.3 % High 11.6-14.6 [facility] Comment on above: Performed By: #### L 500.2500, L100.0500 ####[facility] [address] [place], [address] Hematocrit (Bld) [Volume fraction] 32.5 % Low 40-54 [facility] Comment on above: Performed By: #### L 500.2500, L100.0500 ####[facility] [address] [place], [address] Hemoglobin (Bld) [Mass/Vol] 9.9 g/dL Low 13.0-16.5 [facility] Comment on above: Performed By: #### L 500.2500, L100.0500 ####[facility] [address] [place], [address] MCH (RBC) [Entitic mass] 27.3 pg Normal 27.0-32.0 [facility] Comment on above: Performed By: #### L 500.2500, L100.0500 ####[facility] [address] [place], [address] MCHC (RBC) [Mass/Vol] 30.5 g/dL Low 32-36 [facility] Comment on above: Performed By: #### L 500.2500, L100.0500 ####[facility] [address] [place], [address] MCV (RBC) [Entitic vol] 89.8 fL Normal 80-94 [facility] Comment on above: Performed By: #### L 500.2500, L100.0500 ####[facility] [address] [place], [address] Platelet mean volume (Bld) [Entitic vol] 9.1 fL Normal 6.2-12.0 [facility] Comment on above: Performed By: #### L 500.2500, L100.0500 ####[facility] [address] [place], [address] Platelets (Bld) [#/Vol] 219 10*3/uL Normal 150-450 [facility] Comment on above: Performed By: #### L 500.2500, L100.0500 ####[facility] [address] [place], [address] RBC (Bld) [#/Vol] 3.62 10*6/uL Low 4.6-6.2 [facility] Comment on above: Performed By: #### L 500.2500, L100.0500 ####[facility] [address] [place], [address] RDW SD 53.4 fl High 35.1-43.9 [facility] Comment on above: Performed By: #### L 500.2500, L100.0500 ####[facility] [address] [place], [address] WBC (Bld) [#/Vol] 8.6 10*3/uL Normal 4.4-11.0 [facility] Comment on above: Performed By: #### L 500.2500, L100.0500 ####[facility] [address] [place], [address] Calcium [Mass/Vol]Ordered By : Jacob Suazo on 05-23-2024 Serum or plasma calcium measurement (mass/volume) 9.2 mg/dL 7.6-11.0 [facility] Carbon dioxide, total [Moles /volume] in Central venous bloodOrdered By: Jacob Suazo on 05-23-2024 CO2 [Moles/Vol] 25.9 mmol/L 21.0-32.0 [facility] Carbon dioxide, total [Moles/volume] in Central venous blood 25.9 mmol/L 21.0-32.0 [facility] Chloride assayOrdered By: Neto Suazo on 05-23-2024 Chloride [Moles/Vol] 105 mmol/L 98-108 [facility] Chloride assay 105 mmol/L -108 [facility] Creatinine [Mass/Vol]Ordered By: Jacob Suazo on 05-23-2024 Serum creatinine measurement (mass/volume) 0.61 mg/dL Low 0.70-1.20 [facility] Electrocardiogram reportOrde red By: Steven Kauffman on 05-23-2024 EKG study [facility] [address] [place] [address] 12 Lead EKG 05/22/24 1251 MR#: [id number] Acct: [id number] Name: OSWALDO CORLEY Rep #:[id number] : 1940 83 From: Steven Kauffman MD Attending Dr: Dr. Mei Cortes DO Status: ADM IN Ordering Dr: Randy Londono MD Date: 05/22 Location: [facility] Sex: M C Admitted: 05/22/24 Test Reason : SOB Blood Pressure : */* mmHG Vent. Rate : 79 BPM Atrial Rate : 79 BPM P-R Int : 154 ms QRS Dur : 86 ms QT Int : 360 ms P-R-T Axes : 81 52 4 degrees QTcB Int : 412 ms Normal sinus rhythm Nonspecific ST and T wave abnormality Abnormal ECG Confirmed by NITHYA SOTO, STEVEN ([id number]), assistant production editor YINA HERNANDEZ ([id number]) on 58:20:59 AM Referred By: Confirmed By: STEVEN KAUFFMAN MD 05/23/24 0821 Date _ Steven Kauffman MD CC: Dr. Mei Cummins MD; Dr. Mei Cortes DO; Dr. Randy Londono MD ~ Signed [facility] Other Phone: Erythrocyte distribution wid th (RBC) [Ratio]Ordered By: Jacob Suazo on 05-23-2024 Erythrocyte distribution width ratio 16.3 % High 11.6-14.6 [facility] Erythrocyte distribution width standard deviation 53.4 fl High 35.1-43.9 [facility] Erythrocyte distribution wid th ratioOrdered By: Jacob Suazo on 05-23-2024 Erythrocyte distribution width (RBC) [Ratio] 16.3 % High 11.6-14.6 [facility] Erythrocyte distribution wid th standard deviationOrdered By: Jacob Suazo on 05-23-2024 Erythrocyte distribution width (RBC) [Entitic vol] 53.4 fL High 35.1-43.9 [facility] Erythrocyte distribution width (RBC) [Ratio] 53.4 fl High 35.1-43.9 [facility] Estimation of creatinine marybel aranceOrdered By: Jacob Suazo on 05-23-2024 Estimated Creatinine Clearance Calc 78.56 ml/min 50-250 [facility] Estimation of creatinine clearance 78.56 ml/min 50-250 [facility] GFR/1.73 sq M.predicted matilda g non-blacks MDRD (S/P/Bld) [Vol rate/Area]Ordered By: Jacob Suazo on 05-23-2024 Estimated GFR (MDRD) Non-Af Amer 97 >60 [facility] Comment on above: mL/min/1.73m2 CKD-EP I Creatinine Equation (2020) Glomerular filtration rate (GFR) estimation/1.73 sq m using serum, plasma, or whole b 97 >60 [facility] Glomerular filtration rate ( GFR) estimation/1.73 sq m using serum, plasma, or whole bOrdered By: Jacob Suazo on 05-23-2024 GFR/1.73 sq M.predicted among non-blacks MDRD (S/P/Bld) [Vol rate/Area] 97 mL/min/{1.73_m2} >60 [facility] Glucose [Mass/Vol]Ordered By : Jacob Suazo on 05-23-2024 Serum glucose measurement (mass/volume) 165 mg/dL High 70-99 [facility] Hematocrit Auto (Bld) [Volum e fraction]Ordered By: Jacob Suazo on 05-23-2024 Hematocrit (Bld) [Volume fraction] 32.5 % Low 40-54 [facility] Automated blood hematocrit (percentage) 32.5 % Low 40-54 [facility] Hemoglobin measurementOrdere d By: Jacob Suazo on 05-23-2024 Hemoglobin (Bld) [Mass/Vol] 9.9 g/dL Low 13.0-16.5 [facility] Hemoglobin measurement 9.9 g/dL Low 13.0-16.5 [facility] L. pneumophila Ag Ql (U)Orde red By: Jacob Suazo on 05-23-2024 Legionella Antigen [facility] Lactic Acidon 05-23-2024 Lactate [Moles/Vol] 2.7 mmol/L Invalid Interpretation Code 0.0-2.0 [facility] Comment on above: Order Comment: Y Result Comment: Crit ical Result(s) Called at: by:??Results read back bysame.Critical Result(s) Called at 05/22/2024-14:04 by Jovon Parsons??Results read back by same. AMENDED REPORT 05/23/24 0012 LACTIC ACID previously reported as: 2.7 *H mmol/LCritical Result(s) Called at: by:??Results read back bysame. Performed By: #### L 100.0100, L500.4050, L503.6005 ####[facility] [address] [place], [place], [id number] Legionella Antigen Urineon 0 05-23-2024 LEGU Normal [facility] Comment on above: Performed By: #### M 300.4500, M300.4600 ####[facility] [address] [place], [place], [address] MCV (RBC) [Entitic vol]Order ed By: Jacob Suazo on 05-23-2024 MCV (mean corpuscular volume) determination 89.8 fL 80-94 [facility] MCV (mean corpuscular volume ) determinationOrdered By: Jacob Suazo on 05-23-2024 MCV (RBC) [Entitic vol] 89.8 fL 80-94 [facility] Mean corpuscular hemoglobin (MCH) determinationOrdered By: Jacob Suazo on 05-23-2024 MCH (RBC) [Entitic mass] 27.3 pg 27.0-32.0 [facility] Mean corpuscular hemoglobin (MCH) determination 27.3 pg 27.0-32.0 [facility] Mean corpuscular hemoglobin concentration (MCHC) determinationOrdered By: Jacob Suazo on 05-23-2024 MCHC (RBC) [Mass/Vol] 30.5 g/dL Low 32-36 [facility] Mean corpuscular hemoglobin concentration (MCHC) determination 30.5 g/dL Low 32-36 [facility] Mean platelet volume determi nationOrdered By: Jacob Suazo on 05-23-2024 Platelet mean volume (Bld) [Entitic vol] 9.1 fL 6.2-12.0 [facility] Mean platelet volume determination 9.1 fl 6.2-12.0 [facility] Platelet countOrdered By: Neto Suazo on 05-23-2024 Platelets (Bld) [#/Vol] 219 10*3/uL 150-450 [facility] Platelet count 219 K/mm3 150-450 [facility] Potassium (Unsp spec) [Mass/ Vol]Ordered By: Jacob Suazo on 05-23-2024 Potassium [Moles/Vol] 4.2 mmol/L 3.3-5.1 [facility] Potassium measurement (mass/volume) 4.2 mmol/L 3.3-5.1 [facility] Potassium measurement (mass/ volume)Ordered By: Jacob Suazo on 05-23-2024 Potassium (Unsp spec) [Mass/Vol] 4.2 mmol/L 3.3-5.1 [facility] RBC Auto (Bld) [#/Vol]Ordere d By: Jacob Suazo on 05-23-2024 RBC (Bld) [#/Vol] 3.62 10*6/uL Low 4.6-6.2 [facility] Automated blood erythrocyte count 3.62 M/mm3 Low 4.6-6.2 [facility] Serum creatinine measurement (mass/volume)Ordered By: Jacob Suazo on 05-23-2024 Creatinine [Mass/Vol] 0.61 mg/dL Low 0.70-1.20 [facility] Serum glucose measurement (m ass/volume)Ordered By: Jacob Suazo on 05-23-2024 Glucose [Mass/Vol] 165 mg/dL High 70-99 [facility] Serum or plasma calcium ry urement (mass/volume)Ordered By: Jacob Suazo on 05-23-2024 Calcium [Mass/Vol] 9.2 mg/dL 7.6-11.0 [facility] Serum or plasma urea nitroge n measurement (mass/volume)Ordered By: Jacob Suazo on 05-23-2024 Urea nitrogen [Mass/Vol] 15 mg/dL 06-18 [facility] Sodium levelOrdered By: Terrell Suazo on 05-23-2024 Sodium [Moles/Vol] 140 mmol/L 133-145 [facility] Sodium level 140 mmol/L 133-145 [facility] Strep pneumoniae Antig(UR,CS F)on 05-23-2024 STPAG Normal [facility] Comment on above: Performed By: #### M 300.4500, M300.4600 ####[facility] [address] [place], [place], [id number] Streptococcus pneumoniae ant igen assayOrdered By: Jacob Suazo on 05-23-2024 Streptococcus pneumoniae Antigen (M [facility] Urea nitrogen [Mass/Vol]Orde red By: Jacob Suazo on 05-23-2024 Serum or plasma urea nitrogen measurement (mass/volume) 15 mg/dL 06-18 [facility] Urine Legionella pneumophila antigen detectionOrdered By: Jacob Suazo on 05-23-2024 L. pneumophila Ag Ql (U) [facility] Venous Blood Gason CO2 [Moles/Vol] 34 mmol/L High 23-33 [facility] Comment on above: Order Comment: Manua l results entered by Yulia and verified by GVpaffhoy90/24/2025 at 0808. Performed By: #### L 9000.0810 ####[facility] [address] [place], [address] LPM 5.0 [facility] Comment on above: Order Comment: Manua l results entered by Yulia and verified by EGbndqpio02/24/2025 at 0808. Performed By: #### L 9000.0810 ####[facility] [address] [place], [address] O2 Delivery Dev Nasal Can Normal [facility] Comment on above: Order Comment: Manua l results entered by Yulia and verified by SIjfojsnv75/24/2025 at 0808. Performed By: #### L 9000.0810 ####[facility] [address] [place], [address] HCO3 (Bld) [Moles/Vol] 32 mmol/L High 22-26 [facility] Comment on above: Order Comment: Manua l results entered by Yulia and verified by LVegledkq66/24/2025 at 0808. Performed By: #### L 9000.0810 ####[facility] [address] [place], [address] VBG BE 7 mmol/L High -1.0-3.5 [facility] Comment on above: Order Comment: Manua l results entered by Yulia and verified by DCltkwyix38/24/2025 at 0808. Performed By: #### L 9000.0810 ####[facility] [address] [place], [address] VBG pCO2 54.3 mmHg High 41-51 [facility] Comment on above: Order Comment: Manua l results entered by Yulia and verified by GUfqkohmq15/24/2025 at 0808. Performed By: #### L 9000.0810 ####[facility] [address] [place], [address] VBG pH 7.38 Normal 7.32-7.42 [facility] Comment on above: Order Comment: Manua l results entered by Yulia and verified by GXeccnnub74/24/2025 at 0808. Performed By: #### L 9000.0810 ####[facility] [address] [place], [address] VBG PO2 25 mmHg Normal 25-40 [facility] Comment on above: Order Comment: Manua l results entered by Yulia and verified by YVqzqkcyy35/24/2025 at 0808. Performed By: #### L 9000.0810 ####[facility] [address] [place], [place], [address] VBG SO2 43 Low 50-70 [facility] Comment on above: Order Comment: Talhaa l results entered by Yulia and verified by AWteaysqw10/24/2025 at 0808. Performed By: #### L 9000.0810 ####[facility] [address] [place], [address] Blood Gas Type MARTIN Normal [facility] Comment on above: Order Comment: Manua l results entered by Yluia and verified by FLxoanqyu11/24/2025 at 0808. Performed By: #### L 9000.0810 ####[facility] [address] [place], [place], [address] White blood cell (WBC) count Ordered By: Jacob Suazo on 05-23-2024 WBC (Bld) [#/Vol] 8.6 10*3/uL 4.4-11.0 [facility] White blood cell (WBC) count 8.6 K/mm3 4.4-11.0 [facility] 12 Lead EKGon 05-22-2024 12 Lead EKG Normal [facility] ALP [Catalytic activity/Vol] Ordered By: Randy Londono on 05-22-2024 Serum or plasma alkaline phosphatase measurement 82 U/L 40-129 [facility] ALT [Catalytic activity/Vol] Ordered By: Randy Londono on 05-22-2024 Serum or plasma alanine aminotransferase (ALT) measurement 12 U/L <47 [facility] Absolute lymphocyte countOrd ered By: Randymaxim Londono on 05-22-2024 Lymphocytes Auto (Unsp spec) [#/Vol] 0.18 10*3/uL Low 0.83-4.51 [facility] Absolute neutrophil countOrd ered By: Randy Londono on 05-22-2024 Neutrophils (Bld) [#/Vol] 12.9 10*3/uL High 2.0-7.7 [facility] Absolute neutrophil count 12.9 X10^3/uL High 2.0-7.7 [facility] Albumin [Mass/Vol]Ordered By : Randymaxim Londono on 05-22-2024 Serum or plasma albumin measurement (mass/volume) 3.4 g/dL 3.4-4.8 [facility] Albumin/Globulin [Mass ratio ]Ordered By: Randymaxim Londono on 05-22-2024 Serum or plasma albumin/globulin mass ratio 1.3 RATIO 0.9-2.4 [facility] Anion gap in Serum or Plasma Ordered By: Randymaxim Londono on 05-22-2024 Anion gap [Moles/Vol] 11 mmol/L 5-15 [facility] Automated lymphocyte count a s percentage of total leukocytesOrdered By: Randymaxim Londono on 05-22-2024 Lymphocytes/100 WBC Auto (Unsp spec) 1.3 % Low 19-41 [facility] BUN/creatinine ratioOrdered By: Randymaxim Londono on 05-22-2024 Urea nitrogen/Creatinine [Mass ratio] 21.8 mg/mg High 10-20 [facility] Base excess Calc (BldV) [Mol es/Vol]Ordered By: Mei Cortes on 05-22-2024 Venous Blood Base Excess 7 mmol/L High -1.0-3.5 [facility] Venous blood base excess measurement 7 mmol/L High -1.0-3.5 [facility] Basophil percentageOrdered B y: Randymaxim Londono on 05-22-2024 Basophils/100 WBC (Bld) 0.1 % 0-1 [facility] Bilirubin, totalOrdered By: Randymaxim Londono on 05-22-2024 Bilirubin [Mass/Vol] 0.50 mg/dL 0.00-1.30 [facility] Bilirubin, total 0.50 mg/dL 0.00-1.30 [facility] Blood cultureOrdered By: Randymaxim Londono on 05-22-2024 Bacteria identified Cx Nom (Bld) No growth in 5 days. [facility] Blood culture No growth in 5 days. [facility] Bacteria identified Cx Nom (Bld) No growth in 5 days. [facility] Blood culture No growth in 5 days. [facility] CBC W/Diff, Automatedon 05-01 Absolute Lymph 0.18 X10 3/uL Low 0.83-4.51 [facility] Comment on above: Performed By: #### L 100.0100, L500.4050, L503.6005 ####[facility] [address] [place], [address] Absolute Neut 12.9 X10 3/uL High 2.0-7.7 [facility] Comment on above: Performed By: #### L 100.0100, L500.4050, L503.6005 ####[facility] [address] [place], [address] Basophils/100 WBC (Bld) 0.1 % Normal 0-1 [facility] Comment on above: Performed By: #### L 100.0100, L500.4050, L503.6005 ####[facility] [address] [place], [address] Eosinophils/100 WBC (Bld) 0.1 % Normal 0-5 [facility] Comment on above: Performed By: #### L 100.0100, L500.4050, L503.6005 ####[facility] [address] [place], [address] Erythrocyte distribution width (RBC) [Ratio] 16.5 % High 11.6-14.6 [facility] Comment on above: Performed By: #### L 100.0100, L500.4050, L503.6005 ####[facility] [address] [place], [address] Hematocrit (Bld) [Volume fraction] 33.4 % Low 40-54 [facility] Comment on above: Performed By: #### L 100.0100, L500.4050, L503.6005 ####[facility] [address] [place], [address] Hemoglobin (Bld) [Mass/Vol] 10.2 g/dL Low 13.0-16.5 [facility] Comment on above: Performed By: #### L 100.0100, L500.4050, L503.6005 ####[facility] [address] [place], [address] IG% 0.600 Normal 0.0-0.9 [facility] Comment on above: Result Comment: IG% - Immature Granulocytes (promyelocytes, myelocytes andmetamyelocytes) > 1% indicates that a LEFT SHIFT is Present. Performed By: #### L 100.0100, L500.4050, L503.6005 ####[facility] [address] [place], [address] Lymphocytes/100 WBC (Bld) 1.3 % Low 19-41 [facility] Comment on above: Performed By: #### L 100.0100, L500.4050, L503.6005 ####[facility] [address] [place], [address] MCH (RBC) [Entitic mass] 27.3 pg Normal 27.0-32.0 [facility] Comment on above: Performed By: #### L 100.0100, L500.4050, L503.6005 ####[facility] [address] [place], [address] MCHC (RBC) [Mass/Vol] 30.5 g/dL Low 32-36 [facility] Comment on above: Performed By: #### L 100.0100, L500.4050, L503.6005 ####[facility] [address] [place], [address] MCV (RBC) [Entitic vol] 89.5 fL Normal 80-94 [facility] Comment on above: Performed By: #### L 100.0100, L500.4050, L503.6005 ####[facility] [address] [place], [address] Monocytes/100 WBC (Bld) 2.4 % Normal 0-10 [facility] Comment on above: Performed By: #### L 100.0100, L500.4050, L503.6005 ####[facility] [address] [place], [address] Neutrophils/100 WBC (Bld) 95.5 % High 47-70 [facility] Comment on above: Performed By: #### L 100.0100, L500.4050, L503.6005 ####[facility] [address] [place], [address] Nucleated RBC (Bld) [#/Vol] 0 10*3/uL Normal 0-5 [facility] Comment on above: Performed By: #### L 100.0100, L500.4050, L503.6005 ####[facility] [address] [place], [address] Platelet mean volume (Bld) [Entitic vol] 8.9 fL Normal 6.2-12.0 [facility] Comment on above: Performed By: #### L 100.0100, L500.4050, L503.6005 ####[facility] [address] [place], [address] Platelets (Bld) [#/Vol] 197 10*3/uL Normal 150-450 [facility] Comment on above: Performed By: #### L 100.0100, L500.4050, L503.6005 ####[facility] [address] [place], [address] RBC (Bld) [#/Vol] 3.73 10*6/uL Low 4.6-6.2 [facility] Comment on above: Performed By: #### L 100.0100, L500.4050, L503.6005 ####[facility] [address] [place], [address] RDW SD 54.5 fl High 35.1-43.9 [facility] Comment on above: Performed By: #### L 100.0100, L500.4050, L503.6005 ####[facility] [address] [place], [address] WBC (Bld) [#/Vol] 13.5 10*3/uL High 4.4-11.0 [facility] Comment on above: Performed By: #### L 100.0100, L500.4050, L503.6005 ####[facility] [address] [place], [address] CO2 (BldV) [Moles/Vol]Ordere d By: Mei Cortes on 05-22-2024 CO2 [Moles/Vol] 34 mmol/L High 23-33 [facility] Venous blood total carbon dioxide measurement 34 mmol/L High 23-33 [facility] CO2 (BldV) [Partial pressure ]Ordered By: Mei Cortes on 05-22-2024 Bed Mix Venous Bld PCO2 at Pat Temp 54.3 mmHg High 41-51 [facility] Venous blood partial pressure of carbon dioxide measurement 54.3 mmHg High 41-51 [facility] CTA Chest W/WO Contraston CTA Chest W/WO Contrast Normal [facility] Carbon dioxide, total [Moles /volume] in Central venous bloodOrdered By: Randy Londono on 05-22-2024 CO2 [Moles/Vol] 26.4 mmol/L 21.0-32.0 [facility] Chest PA and Lateralon 05-22 Chest PA and Lateral Normal [facility] Chloride assayOrdered By: Ug o Londono on 05-22-2024 Chloride [Moles/Vol] 102 mmol/L 98-108 [facility] Comprehensive Metabolic Prof ilon 05-22-2024 Albumin [Mass/Vol] 3.4 g/dL Normal 3.4-4.8 [facility] Comment on above: Performed By: #### L 100.0100, L500.4050, L503.6005 ####[facility] [address] [place], [address] Albumin/Globulin [Mass ratio] 1.3 {ratio} Normal 0.9-2.4 [facility] Comment on above: Performed By: #### L 100.0100, L500.4050, L503.6005 ####[facility] [address] [place], [address] ALK PHOS 82 U/L Normal 40-129 [facility] Comment on above: Performed By: #### L 100.0100, L500.4050, L503.6005 ####[facility] [address] [place], [address] ALT [Catalytic activity/Vol] 12 U/L Normal <=46 [facility] Comment on above: Performed By: #### L 100.0100, L500.4050, L503.6005 ####[facility] [address] [place], [address] AST [Catalytic activity/Vol] 22 U/L Normal <=37 [facility] Comment on above: Performed By: #### L 100.0100, L500.4050, L503.6005 ####[facility] [address] [place], [address] Bilirubin [Mass/Vol] 0.50 mg/dL Normal 0.00-1.30 [facility] Comment on above: Performed By: #### L 100.0100, L500.4050, L503.6005 ####[facility] [address] [place], [address] BUN/CRE 21.8 RATIO High 10-20 [facility] Comment on above: Performed By: #### L 100.0100, L500.4050, L503.6005 ####[facility] [address] [place], [address] Calcium [Mass/Vol] 9.2 mg/dL Normal 7.6-11.0 [facility] Comment on above: Performed By: #### L 100.0100, L500.4050, L503.6005 ####[facility] [address] [place], [address] Chloride [Moles/Vol] 102 mmol/L Normal 98-108 [facility] Comment on above: Performed By: #### L 100.0100, L500.4050, L503.6005 ####[facility] [address] [place], [address] CO2 [Moles/Vol] 26.4 mmol/L Normal 21.0-32.0 [facility] Comment on above: Performed By: #### L 100.0100, L500.4050, L503.6005 ####[facility] [address] [place], [address] Creatinine [Mass/Vol] 0.75 mg/dL Normal 0.70-1.20 [facility] Comment on above: Performed By: #### L 100.0100, L500.4050, L503.6005 ####[facility] [address] [place], [address] ECRCL 78.56 ml/min Normal 50-250 [facility] Comment on above: Performed By: #### L 100.0100, L500.4050, L503.6005 ####[facility] [address] [place], [address] GAP 11 Normal 5-15 [facility] Comment on above: Performed By: #### L 100.0100, L500.4050, L503.6005 ####[facility] [address] [place], [address] GFR/1.73 sq M.predicted among non-blacks MDRD (S/P/Bld) [Vol rate/Area] 91 mL/min/{1.73_m2} Normal >60 [facility] Comment on above: Result Comment: mL/m in/1.73m2 CKD-EPI Creatinine Equation (2020) Performed By: #### L 100.0100, L500.4050, L503.6005 ####[facility] [address] [place], [address] Globulin (S) [Mass/Vol] 2.7 g/dL Normal 2.2-4.2 [facility] Comment on above: Performed By: #### L 100.0100, L500.4050, L503.6005 ####[facility] [address] [place], [address] Glucose [Mass/Vol] 180 mg/dL High 70-99 [facility] Comment on above: Performed By: #### L 100.0100, L500.4050, L503.6005 ####[facility] [address] [place], [address] Potassium [Moles/Vol] 4.9 mmol/L Normal 3.3-5.1 [facility] Comment on above: Performed By: #### L 100.0100, L500.4050, L503.6005 ####[facility] [address] [place], [address] Sodium [Moles/Vol] 140 mmol/L Normal 133-145 [facility] Comment on above: Performed By: #### L 100.0100, L500.4050, L503.6005 ####[facility] [address] [place], [address] T PROT 6.0 g/dL Normal 5.9-8.4 [facility] Comment on above: Performed By: #### L 100.0100, L500.4050, L503.6005 ####[facility] [address] [place], [address] Urea nitrogen [Mass/Vol] 16 mg/dL Normal 4-19 [facility] Comment on above: Performed By: #### L 100.0100, L500.4050, L503.6005 ####[facility] [address] [place], [address] Emergency Department Summary on 05-22-2024 Emergency Department Summary Normal [facility] Eosinophil percentageOrdered By: Randymaxim Londono on 05-22-2024 Eosinophils/100 WBC (Bld) 0.1 % 0-5 [facility] Eosinophil percentage 0.1 % 0-1 [facility] Erythrocyte distribution wid th ratioOrdered By: Randymaxim Londono on 05-22-2024 Erythrocyte distribution width (RBC) [Ratio] 16.5 % High 11.6-14.6 [facility] Erythrocyte distribution wid th standard deviationOrdered By: Randymaxim Londono on 05-22-2024 Erythrocyte distribution width (RBC) [Entitic vol] 54.5 fL High 35.1-43.9 [facility] Estimation of creatinine marybel aranceOrdered By: Randymaxim Londono on 05-22-2024 Estimated Creatinine Clearance Calc 78.56 ml/min 50-250 [facility] GFR/1.73 sq M.predicted matilda g non-blacks MDRD (S/P/Bld) [Vol rate/Area]Ordered By: Randy Londono on 05-22-2024 Estimated GFR (MDRD) Non-Af Amer 91 >60 [facility] Comment on above: mL/min/1.73m2 CKD-EP I Creatinine Equation (2020) H AND P Exam - Hospitaliston 05-22-2024 H&P Exam - Hospitalist Normal [facility] Hematocrit Auto (Bld) [Volum e fraction]Ordered By: Randy Londono on 05-22-2024 Hematocrit (Bld) [Volume fraction] 33.4 % Low 40-54 [facility] Hemoglobin measurementOrdere d By: Randy Londono on 05-22-2024 Hemoglobin (Bld) [Mass/Vol] 10.2 g/dL Low 13.0-16.5 [facility] Immature granulocytes/100 WB C Auto (Bld)Ordered By: Randy Londono on 05-22-2024 Immature granulocytes/100 WBC (Bld) 0.600 % 0.0-0.9 [facility] Comment on above: IG% - Immature Granu locytes (promyelocytes, myelocytes and metamyelocytes) > 1% indicates that a LEFT SHIFT is Present. Automated immature granulocyte percentage 0.600 % 0.0-0.9 [facility] Influenza virus A and B and SARS-CoV-2 (COVID-19) and Respiratory syncytial virus RNAOrdered By: Randy Londono on 05-22-2024 SARS-CoV-2 (COVID-19) RNA DORYS+probe Ql (Unsp spec) [facility] L503.7505on 05-22-2024 Natriuretic peptide B (Bld) [Mass/Vol] 741 pg/mL Normal <=1800 [facility] Comment on above: Result Comment: Hear t Failure Unlikely: < 300 pg/mLHeart Failure Likely< 50 Years: > 450 pg/mL50-75 Years: > 900 pg/mL>75 Years: > 1800 pg/mL Performed By: #### L 503.7508 ####[facility] [address] [facility] [place], [place], [address] L509.7001on 05-22-2024 Procalcitonin 0.49 ng/mL High <=0.10 [facility] Comment on above: Result Comment: Inte rpretation:<0.10-0.25 ng/mL: Antibiotic therapy discouraged. Bacterialinfection unlikely.0.25-0.50 ng/mL: Antibiotic therapy encouraged. Bacterialinfection possible.>0.50 ng/mL: Antibiotic therapy strongly encouraged.Suggestive of presence of bacterial infection.PCT should always be interpreted in the clinical context ofthe patient. Therefore, clinicians should use the PCTresults in conjunction with other laboratory findings andclinical signs of the patient. Performed By: #### L 148.3002 ####[facility] [address] [place], [place], [address] Laboratory - Chemistry and C hemistry - challengeOrdered By: Randy Londono on 05-22-2024 AST [Catalytic activity/Vol] 22 U/L <38 [facility] Laboratory - Chemistry and C hemistry - challengeOrdered By: Jacob Suazo on 05-22-2024 Natriuretic peptide B (Bld) [Mass/Vol] 741 pg/mL <1800 [facility] Comment on above: Heart Failure Unlike ly: < 300 pg/mLHeart Failure Likely< 50 Years: > 450 pg/mL50-75 Years: > 900 pg/mL>75 Years: > 1800 pg/mL Lactic Acidon 05-22-2024 Lactate [Moles/Vol] 4.6 mmol/L Invalid Interpretation Code 0.0-2.0 [facility] Comment on above: Order Comment: Y Result Comment: Crit ical Result(s) Called at:2326 by: ZACH REYNAGA??Results read back by same. Performed By: #### L 503.600 ####[facility] [address] [place], [address] Lactate [Moles/Vol] 5.0 mmol/L Invalid Interpretation Code 0.0-2.0 [facility] Comment on above: Order Comment: Y Result Comment: Crit ical Result(s) Called at: 1741 by: JAZMIN LAZCANO??SERENITY HOGAN Results read back by same.Critical Result(s) Called at:1741 by: JAZMIN HOGAN??Results read back by same. AMENDED REPORT 05/22/241808 LACTIC ACID previously reported as: 5.1 *H mmol/LCritical Result(s) Called at: 1741 by: JAZMIN LAZCANO??SERENITY SAMIRA Results read back by same. Performed By: #### L 194.5489 ####[facility] [address] [place], [address] Lactic acid measurementOrder ed By: Jacob Suazo on 05-22-2024 Lactate [Moles/Vol] 4.6 mmol/L High 0.0-2.0 [facility] Comment on above: Critical Result(s) C alled at:2327 by: ZACH ARORA Results read back by same. Lactic acid measurement 4.6 mmol/L High 0.0-2.0 [facility] Lactic acid measurementOrder ed By: Randy Londono on 05-22-2024 Lactate [Moles/Vol] 2.7 mmol/L High 0.0-2.0 [facility] Comment on above: Critical Result(s) C alled at: by: Results read back by same. Lymphocytes Auto (Unsp spec) [#/Vol]Ordered By: Randymaxim Londono on 05-22-2024 Lymphocytes (Bld) [#/Vol] 0.18 10*3/uL Low 0.83-4.51 [facility] Absolute lymphocyte count 0.18 X10^3/uL Low 0.83-4.51 [facility] Lymphocytes/100 WBC Auto (Un sp spec)Ordered By: Randymaxim Londono on 05-22-2024 Lymphocytes/100 WBC (Bld) 1.3 % Low 19-41 [facility] Automated lymphocyte count as percentage of total leukocytes 1.3 % Low 19-41 [facility] M100.678on 05-22-2024 M100.678 Pending SARS-CoV-2 (COVID 19) Negative INFLUENZA A Negative INFLUENZA B Negative RSV PCR Negative Normal [facility] Comment on above: Performed By: #### M 100.678 ####[facility] [address] [place], [address] MCV (mean corpuscular volume ) determinationOrdered By: Randy Londono on 05-22-2024 MCV (RBC) [Entitic vol] 89.5 fL 80-94 [facility] Mean corpuscular hemoglobin (MCH) determinationOrdered By: Randymaxim Londono on 05-22-2024 MCH (RBC) [Entitic mass] 27.3 pg 27.0-32.0 [facility] Mean corpuscular hemoglobin concentration (MCHC) determinationOrdered By: Randymaxim Londono on 05-22-2024 MCHC (RBC) [Mass/Vol] 30.5 g/dL Low 32-36 [facility] Mean platelet volume determi nationOrdered By: Randy Londono on 05-22-2024 Platelet mean volume (Bld) [Entitic vol] 8.9 fL 6.2-12.0 [facility] Monocyte percentageOrdered B y: Randy Londono on 05-22-2024 Monocytes/100 WBC (Bld) 2.4 % 0-10 [facility] Monocyte percentage 2.4 % 0-10 [facility] Neutrophil percentageOrdered By: Randy Londono on 05-22-2024 Neutrophils/100 WBC (Bld) 95.5 % High 47-70 [facility] Neutrophil percentage 95.5 % High 47-70 [facility] No Panel InformationOrdered By: Mei Cortes on 05-22-2024 Blood Gas Liter Flow 5.0 [facility] [facility] Blood Gas Specimen Type MARTIN [facility] Oxygen Delivery Device Nasal Can [facility] MARTIN [facility] Nasal Can [facility] 5.0 [facility] No Panel InformationOrdered By: Jacob Suazo on 05-22-2024 Procalcitonin 0.49 ng/mL High <0.11 [facility] Comment on above: Interpretation:<0.10 -0.25 ng/mL: Antibiotic therapy discouraged. Bacterial infection unlikely.0.25-0.50 ng/mL: Antibiotic therapy encouraged. Bacterial infection possible.>0.50 ng/mL: Antibiotic therapy strongly encouraged. Suggestive of presence of bacterial infection.PCT should always be interpreted in the clinical context of the patient. Therefore, clinicians should use the PCT results in conjunction with other laboratory findings and clinical signs of the patient. 741 pg/mL <1800 [facility] 0.49 ng/mL High <0.11 [facility] No Panel InformationOrdered By: Randy Londono on 05-22-2024 22 U/L <38 [facility] Nucleated red blood cell per centageOrdered By: Randy Londono on 05-22-2024 Nucleated RBC/100 WBC (Bld) [Ratio] 0 % 0-5 [facility] Nucleated red blood cell percentage 0 % 0-5 [facility] Oxygen (BldV) [Partial press ure]Ordered By: Mei Cortes on 05-22-2024 Venous Blood Partial Pressure O2 25 mmHg 25-40 [facility] Venous blood partial pressure of oxygen measurement 25 mmHg 25-40 [facility] Platelet countOrdered By: Nancy Londono on 05-22-2024 Platelets (Bld) [#/Vol] 197 10*3/uL 150-450 [facility] Potassium (Unsp spec) [Mass/ Vol]Ordered By: Randy Londono on 05-22-2024 Potassium [Moles/Vol] 4.9 mmol/L 3.3-5.1 [facility] RBC Auto (Bld) [#/Vol]Ordere d By: Randy Londono on 05-22-2024 RBC (Bld) [#/Vol] 3.73 10*6/uL Low 4.6-6.2 [facility] RESPIRATORY PANEL MOLECULARo n 05-22-2024 RP PANEL Normal [facility] Comment on above: Performed By: #### M 100.638 ####[facility] [address] [place], [address] Respiratory pathogens DNA an d RNA panel DORYS+probe (Resp)Ordered By: Jacob Suazo on 05-22-2024 Respiratory Panel (PCR) [facility] Respiratory pathogens detect ion panel by molecular detection methodOrdered By: Jacob Suazo on 05-22-2024 Respiratory pathogens DNA and RNA panel DORYS+probe (Resp) [facility] Serum creatinine measurement (mass/volume)Ordered By: Randy Londono on 05-22-2024 Creatinine [Mass/Vol] 0.75 mg/dL 0.70-1.20 [facility] Serum globulin measurementOr dered By: Randy Londono on 05-22-2024 Globulin (S) [Mass/Vol] 2.7 g/dL 2.2-4.2 [facility] Serum globulin measurement 2.7 g/dL 2.2-4.2 [facility] Serum glucose measurement (m ass/volume)Ordered By: Randy Londono on 05-22-2024 Glucose [Mass/Vol] 180 mg/dL High 70-99 [facility] Serum or plasma alanine pierre otransferase (ALT) measurementOrdered By: Randy Londono on 05-22-2024 ALT [Catalytic activity/Vol] 12 U/L <47 [facility] Serum or plasma albumin ry urement (mass/volume)Ordered By: Randy Londono on 05-22-2024 Albumin [Mass/Vol] 3.4 g/dL 3.4-4.8 [facility] Serum or plasma albumin/glob ulin mass ratioOrdered By: Randy Londono on 05-22-2024 Albumin/Globulin [Mass ratio] 1.3 {ratio} 0.9-2.4 [facility] Serum or plasma alkaline josue sphatase measurementOrdered By: Randy Londono on 05-22-2024 ALP [Catalytic activity/Vol] 82 U/L 40-129 [facility] Serum or plasma calcium ry urement (mass/volume)Ordered By: Randy Londono on 05-22-2024 Calcium [Mass/Vol] 9.2 mg/dL 7.6-11.0 [facility] Serum or plasma urea nitroge n measurement (mass/volume)Ordered By: Randy Londono on 05-22-2024 Urea nitrogen [Mass/Vol] 16 mg/dL 4-19 [facility] Sodium levelOrdered By: Randy Londono on 05-22-2024 Sodium [Moles/Vol] 140 mmol/L 133-145 [facility] Total proteinOrdered By: Randy Londono on 05-22-2024 Protein [Mass/Vol] 6.0 g/dL 5.9-8.4 [facility] Total protein 6.0 g/dL 5.9-8.4 [facility] Venous blood base excess eliot surementOrdered By: Mei Cortes on 05-22-2024 Base excess Calc (BldV) [Moles/Vol] 7 mmol/L High -1.0-3.5 [facility] Venous blood bicarbonate eliot surementOrdered By: Mei Cortes on 05-22-2024 HCO3 (Bld) [Moles/Vol] 32 mmol/L High 22-26 [facility] Venous blood bicarbonate measurement 32 mmol/L High 22-26 [facility] Venous blood oxygen saturati on measurementOrdered By: Mei Cortes on 05-22-2024 Oxygen saturation in Blood 43 % Low 50-70 [facility] Venous blood oxygen saturation measurement 43 % Low 50-70 [facility] Venous blood pH measurementO rdered By: Mei Cortes on 05-22-2024 pH (BldV) 7.38 [pH] 7.32-7.42 [facility] Venous blood partial pressur e of carbon dioxide measurementOrdered By: Mei Cortes on 05-22-2024 CO2 (BldV) [Partial pressure] 54.3 mm[Hg] High 41-51 [facility] Venous blood partial pressur e of oxygen measurementOrdered By: Mei Cortes on 05-22-2024 Oxygen (BldV) [Partial pressure] 25 mm[Hg] 25-40 [facility] White blood cell (WBC) count Ordered By: Randy Londono on 05-22-2024 WBC (Bld) [#/Vol] 13.5 10*3/uL High 4.4-11.0 [facility] pH (BldV)Ordered By: Mei Prabhakar on 05-22-2024 Venous Blood pH 7.38 7.32-7.42 [facility] Venous blood pH measurement 7.38 7.32-7.42 [facility] CNPNon 05-05-2024 CNPN Normal [facility] Basic metabolic 2000 panelon 04-26-2024 Anion gap [Moles/Vol] 11 mmol/L Normal 8-15 [facility] Comment on above: Order Comment: Speci men Type: BLOOD SPECIMENOrdering Facility: [facility] Address: [address] [place] [address] Performed By: #### 2 4321-2, 95892-4 ####[facility] [id number] [place] [address] [place] Calcium [Mass/Vol] 9.7 mg/dL Normal 8.5-10.2 [facility] Comment on above: Order Comment: Speci men Type: BLOOD SPECIMENOrdering Facility: [facility] Address: [address] [id number] Performed By: #### 2 4321-2, 74004-0 ####[facility] [id number] [place] [address] [place] Chloride [Moles/Vol] 100 mmol/L Normal 98-107 [facility] Comment on above: Order Comment: Speci men Type: BLOOD SPECIMENOrdering Facility: [facility] Address: [address] [place] [address] Performed By: #### 2 4321-2, 99466-4 ####[facility]ITALNCLIA [id number] [place] [address] [place] CO2 [Moles/Vol] 29 mmol/L Normal 22-30 [facility] Comment on above: Order Comment: Speci men Type: BLOOD SPECIMENOrdering Facility: [facility] Address: [address] [place] [address] Performed By: #### 2 4321-2, 97902-8 ####[facility]NC[facility] [id number] [place] [address] [place] Creatinine [Mass/Vol] 0.74 mg/dL Normal 0.73-1.22 [facility] Comment on above: Order Comment: Speci men Type: BLOOD SPECIMENOrdering Facility: [facility] Address: [address] [place] [address] Performed By: #### 2 4321-2, 72390-1 ####[facility]ITALNCLIA [id number] [address] [facility] Creatinine and Glomerular filtration rate.predicted panel (S/P/Bld) 91 mL/min/1.73m??? Normal >=60 [facility] Comment on above: Order Comment: Speci men Type: BLOOD SPECIMENOrdering Facility: [facility] Address: [address] [place] [address] Result Comment: Karey mated Glomerular Filtration Rate (eGFR) is calculated using the 2020 CKD-EPI creatinine equation. This equation utilizes serum creatinine, sex, and age as parameters. The creatinine assay has traceable calibration to isotope dilution-mass spectrometry. Refer to KDIGO guidelines for clinical interpretation. In patients with unstable renal function, e.g. those with acute kidney injury, the eGFR may not accurately reflect actual GFR. Performed By: #### 2 4321-2, 11390-1 ####[facility] ADAMWNCLIA [id number] [place] [address] [place] Glucose [Mass/Vol] 134 mg/dL High 74-99 [facility] Comment on above: Order Comment: Speci men Type: BLOOD SPECIMENOrdering Facility: [facility] Address: [address] [place] [address] Result Comment: The [place] Diabetes Association (ADA) provides guidance for cutoff values for fasting glucose and random glucose. The ADA defines fasting as no caloric intake for at least 8 hours. Fasting plasma glucose results between 100 to 125 mg/dL indicate increased risk for diabetes (prediabetes).Fasting plasma glucose results greater than or equal to 126 mg/dL meet the criteria for diagnosis of diabetes. In the absence of unequivocal hyperglycemia, results should be confirmed by repeat testing. In a patient with classic symptoms of hyperglycemia or hyperglycemic crisis, random plasma glucose results greater than or equal to 200 mg/dL meet the criteria for diagnosis of diabetes.Reference: Standards of Medical Care in Diabetes 2016, [place] Diabetes Association. Diabetes Care. 2016.39(Suppl 1). Performed By: #### 2 4321-2, 88896-4 ####[facility]WLUC[facility] [id number] [place] [address] [place] Potassium [Moles/Vol] 4.2 mmol/L Normal 3.7-5.1 [facility] Comment on above: Order Comment: Speci men Type: BLOOD SPECIMENOrdering Facility: [facility] Address: [address] [place] [address] Performed By: #### 2 4321-2, 46474-5 ####[facility]ITALLUCAS [id number] [place] [address] [place] Sodium [Moles/Vol] 140 mmol/L Normal 136-144 [facility] Comment on above: Order Comment: Speci men Type: BLOOD SPECIMENOrdering Facility: [facility] Address: [address] [place] [address] Performed By: #### 2 4321-2, 02032-6 ####[facility] MILLTOWNCLIA [id number] [place] [address] [place] Urea nitrogen [Mass/Vol] 19 mg/dL Normal 9-24 [facility] Comment on above: Order Comment: Speci men Type: BLOOD SPECIMENOrdering Facility: [facility] Address: [address] [place] [address] Performed By: #### 2 432-2, 67115-7 ####[facility] MILLTOWNCLIA [id number] [place] [address] [place] Hepatic function 2000 panelo n 04-26-2024 Albumin [Mass/Vol] 4.1 g/dL Normal 3.9-4.9 [facility] Comment on above: Order Comment: Speci men Type: BLOOD SPECIMENOrdering Facility: [facility] Address: [address] [place] [address] Performed By: #### 2 432-2, 67138-5 ####[facility]ITALNCLIA [id number] [place] [address] [place] ALP [Catalytic activity/Vol] 69 U/L Normal 38-113 [facility] Comment on above: Order Comment: Speci men Type: BLOOD SPECIMENOrdering Facility: [facility] Address: [address] [place] [address] Performed By: #### 2 432-2, 47799-6 ####[facility] MILLTOWNCLIA [id number] [place] [address] [place] ALT [Catalytic activity/Vol] 11 U/L Normal 10-54 [facility] Comment on above: Order Comment: Speci men Type: BLOOD SPECIMENOrdering Facility: [facility] Address: [address] [place] [address] Performed By: #### 2 432-2, 63549-2 ####[facility] MILLTOWNCLIA [id number] [place] [address] [place] AST [Catalytic activity/Vol] 17 U/L Normal 14-40 [facility] Comment on above: Order Comment: Speci men Type: BLOOD SPECIMENOrdering Facility: [facility] Address: [address] [place] [address] Performed By: #### 2 4321-2, 34571-5 ####[facility] MILLTOWNCLIA [id number] [place] [address] [place] Bilirubin [Mass/Vol] 0.5 mg/dL Normal 0.2-1.3 [facility] Comment on above: Order Comment: Speci men Type: BLOOD SPECIMENOrdering Facility: [facility] Address: [address] [place] [address] Performed By: #### 2 4321-2, 52219-3 ####[facility]OSPITALMARQUESLIA [id number] [place] [address] [place] Bilirubin.conjugated [Mass/Vol] 0.2 mg/dL Normal <0.3 [facility] Comment on above: Order Comment: Speci men Type: BLOOD SPECIMENOrdering Facility: [facility] Address: [address] [place] [address] Performed By: #### 2 4321-2, 25650-3 ####[facility]KEWNCLIA [id number] [place] [address] [place] Protein [Mass/Vol] 6.7 g/dL Normal 6.3-8.0 [facility] Comment on above: Order Comment: Speci men Type: BLOOD SPECIMENOrdering Facility: [facility] Address: [address] [place] [address] Performed By: #### 2 4321-2, 28584-9 ####[facility] MILLWMARQUESLIA [id number] [address] [facility] Lipid 1996 panelon 5 Cholesterol [Mass/Vol] 142 mg/dL Normal <200 [facility] Comment on above: Order Comment: Speci men Type: BLOOD SPECIMENOrdering Facility: [facility] Address: [address] [place] [address] Result Comment: <200 mg/dL, Desirable 200-239 mg/dL, Borderline high>239 mg/dL, High Performed By: #### 2 4331-1 ####[facility]ORATORYCLIA [id number] [id number] [place] [address] Cholesterol in HDL [Mass/Vol] 65 mg/dL Normal >39 [facility] Comment on above: Order Comment: Speci men Type: BLOOD SPECIMENOrdering Facility: [facility] Address: [address] [place] [address] Result Comment: 40-5 9 mg/dL, Acceptable>59 mg/dL, High: Negative risk factor for coronary heart disease<40 mg/dL, Low: Positive risk factor for coronary heart disease Performed By: #### 2 4331-1 ####[facility]ORATORYCLIA [id number] [address] [id number] [place] [address] Cholesterol in LDL [Mass/Vol] 53 mg/dL Normal <100 [facility] Comment on above: Order Comment: Speci men Type: BLOOD SPECIMENOrdering Facility: [facility] Address: [address] [place] [address] Result Comment: <100 mg/dL, Optimal 100-129 mg/dL, Near optimal/above optimal 130-159 mg/dL, Borderline high 160-189 mg/dL, High>189 mg/dL, Very highSecondary prevention optimal LDL Cholesterol levels are recommended to be < 70 mg/dL Performed By: #### 2 4331-1 ####[facility]ATORYCLIA [id number] [address] [id number] [address] Cholesterol in LDL/Cholesterol in HDL [Mass ratio] 0.82 {ratio} Normal <2.54 [facility] Comment on above: Order Comment: Speci men Type: BLOOD SPECIMENOrdering Facility: [facility] Address: [address] [place] [address] Result Comment: Refe rence:1. National Cholesterol Education Program ATP III Guideline At-A-Glance Quick Desk Reference: National Heart, Lung, and Blood [place]. National Institutes of Health. 2001: NIH Publication No. 01-3305.2. An International Atherosclerosis Society position paper: global recommendations for the management of dyslipidemia: executive summary, Atherosclerosis. 2014: 232(2):410-413. Performed By: #### 2 4331-1 ####[facility]ORATORYCLIA [id number] [address] [id number] [place] [address] [place] Cholesterol in VLDL [Mass/Vol] 24 mg/dL Normal <30 [facility] Comment on above: Order Comment: Speci men Type: BLOOD SPECIMENOrdering Facility: [facility] Address: [address] [place] [address] Performed By: #### 2 4331-1 ####[facility]ORATORYCLIA [id number] [address] [id number] [place] [address] [place] Cholesterol non HDL [Mass/Vol] 77 mg/dL Normal <130 [facility] Comment on above: Order Comment: Speci men Type: BLOOD SPECIMENOrdering Facility: [facility] Address: [address] [place] [address] Result Comment: <130 mg/dL, Optimal 130-159 mg/dL, Near optimal/above optimal 160-189 mg/dL, Borderline high 190-219 mg/dL, High>219 mg/dL, Very highSecondary prevention optimal non HDL Cholesterol levels are recommended to be <100 mg/dL Performed By: #### 2 4331-1 ####[facility]ORYCLIA [id number] [address] [id number] [place] [address] Cholesterol.total/Chol esterol in HDL [Mass ratio] 2.18 {ratio} Normal <5.10 [facility] Comment on above: Order Comment: Speci men Type: BLOOD SPECIMENOrdering Facility: [facility] Address: [address] [place] [address] Performed By: #### 2 4331-1 ####[facility] LABORATORYCLIA [id number] [address] [id number] [place] [address] FASTING TIME 15 hrs Normal [facility] Comment on above: Order Comment: Speci men Type: BLOOD SPECIMENOrdering Facility: [facility] Address: [address] [place] [address] Performed By: #### 2 4331-1 ####[facility] LABORATORYCLIA [id number] [address] [id number] [place] [address] Triglyceride [Mass/Vol] 119 mg/dL Normal <150 [facility] Comment on above: Order Comment: Speci men Type: BLOOD SPECIMENOrdering Facility: [facility] Address: [address] [place] [address] Result Comment: <150 mg/dL, Normal 150-199 mg/dL, Borderline high 200-499 mg/dL, High>499 mg/dL, Very high Performed By: #### 2 4331-1 ####[facility] LABORATORYCLIA [id number] [place] [address] [place] [facility] [id number] [place], [place] [id number] [place] [address] CNPNon 04-20-2024 CNPN Normal [facility] CNOVon 04-14-2024 CNOV Normal [facility] [id number] 04-06-2024 [facility]. COMMENT Normal . [facility] Comment on above: Order Comment: [id number] 1WOUND CULTURE Result Comment: Test Ordered: [id number] Anaerobic/Aerobic/Gram StainAnaerobic Culture Note: CB Final report Reference Range: .Result 1 Comment CB Reference Range: .No anaerobes recovered.Aerobic Culture Note: CB Final report Reference Range: .Result 1 Comment CB Reference Range: .Diphtheroids, not Corynebacterium urealyticumModerate growthSusceptibility not normally performed on this organism.Gram Stain Result Note: CB Final report Reference Range: .Result 1 Comment CB Reference Range: .No white blood cells seen.Result 2 Note: CB No organisms seen Reference Range: .Performed at: - [facility] [id number] Director: Krishan Presley PhD, Phone: [phone] Performed By: #### L 3410.9998 ####[facility] [address] [place], [place], [id number] [facility] 04-04-2024 [facility] Normal [facility] CNPNon 03-31-2024 [facility] Normal [facility] Basic Metabolic Profile (BMP )on 03-30-2024 BUN/CRE 28.3 RATIO High 10-20 [facility] Comment on above: Performed By: #### L 500.2500 ####[facility] [address] [place], [place], [id number] CA,Total 9.2 mg/dL Normal 8.5-10.1 [facility] Comment on above: Performed By: #### L 500.2500 ####[facility] [address] [place], [place], [id number] EST GFR - AA 123 mL/min Normal >60 [facility] Comment on above: Result Comment: Afri can [place] GFR Calc Performed By: #### L 500.2500 ####[facility] [address] [place], [place], [id number] GAP 7 Normal 5-15 [facility] Comment on above: Performed By: #### L 500.2500 ####[facility] [address] [place], [place], [id number] Blood urea nitrogen (BUN)/cr eatinine ratioOrdered By: Mei Cummins on 03-30-2024 Urea nitrogen/Creatinine [Mass ratio] 28.3 mg/mg High 10-20 [facility] Blood urea nitrogen (BUN)/creatinine ratio 28.3 RATIO High 10-20 [facility] Calcium [Mass/Vol]Ordered By : Mei Cummins on 03-30-2024 Serum or plasma calcium measurement (mass/volume) 9.2 mg/dL 8.5-10.1 [facility] Carbon dioxide measurementOr dered By: Mei Cummins on 03-30-2024 CO2 [Moles/Vol] 29.0 mmol/L Normal 21.0-32.0 [facility] Comment on above: Performed By: #### L 500.2500 ####[facility] [address] [place], [place], [id number] Carbon dioxide measurement 29.0 mmol/L 21.0-32.0 [facility] Chloride measurementOrdered By: Mei Cummins on 03-30-2024 Chloride [Moles/Vol] 107 mmol/L Normal 98-107 [facility] Comment on above: Performed By: #### L 500.2500 ####[facility] [address] [place], [place], [id number] Chloride measurement 107 mmol/L 98-107 [facility] Creatinine [Mass/Vol]Ordered By: Mei Cummins on 03-30-2024 Serum or plasma creatinine measurement (mass/volume) 0.78 mg/dL 0.70-1.30 [facility] Estimated glomerular filtrat ion rate (GFR) AmericanOrdered By: Mei Cummins on 03-30-2024 Estimated GFR (MDRD) Amer 123 mL/min >60 [facility] Comment on above: GFR Calc Estimated glomerular filtration rate (GFR) 123 mL/min >60 [facility] Glomerular filtration rate ( GFR) estimationOrdered By: Mei Cummins on 03-30-2024 GFR/1.73 sq M.predicted among non-blacks MDRD (S/P/Bld) [Vol rate/Area] 102 mL/min/{1.73_m2} Normal >60 [facility] Comment on above: Result Comment: Non- GFR Calc Performed By: #### L 500.2500 ####[facility] [address] [place], [place], [id number] Estimated GFR (MDRD) Non-Af Amer 102 mL/min >60 [facility] Comment on above: Non- GFR Calc Glomerular filtration rate (GFR) estimation 102 mL/min >60 [facility] Glucose measurementOrdered B y: Mei Cummins on 03-30-2024 Glucose [Mass/Vol] 112 mg/dL High 74-106 [facility] Comment on above: Fasting Glucose resu lt from 100 to 125 mg/dL suggests IMPAIRED HOMEOSTASIS per A.D.A. criteria. Result Comment: Fast ing Glucose result from 100 to 125 mg/dLsuggests IMPAIRED HOMEOSTASIS per A.D.A. criteria. Performed By: #### L 500.2500 ####[facility] [address] [place], [place], [id number] Glucose measurement 112 mg/dL High 74-106 [facility] Potassium measurementOrdered By: Mei Cummins on 03-30-2024 Potassium [Moles/Vol] 4.0 mmol/L Normal 3.5-5.1 [facility] Comment on above: Performed By: #### L 500.2500 ####[facility] [address] [place], [address] Potassium measurement 4.0 mmol/L 3.5-5.1 [facility] Serum anion gap measurementO rdered By: Mei Cummins on 03-30-2024 Anion gap [Moles/Vol] 7 mmol/L 5-15 [facility] Serum anion gap measurement 7 5-15 [facility] [facility] Serum or plasma calcium ry urement (mass/volume)Ordered By: Mei Cummins on 03-30-2024 Calcium [Mass/Vol] 9.2 mg/dL 8.5-10.1 [facility] Serum or plasma creatinine m easurement (mass/volume)Ordered By: Mei Cummins on 03-30-2024 Creatinine [Mass/Vol] 0.78 mg/dL Normal 0.70-1.30 [facility] Comment on above: The validity of the calculated GFR & GFRAA in patients over 70 years has not been determined. Clinical correlation is essential. Result Comment: The validity of the calculated GFR GFRAA in patients over70 years has not been determined. Clinical correlation isessential. Performed By: #### L 500.2500 ####[facility] [address] [place], [place], [phone] Serum or plasma urea nitroge n measurement (mass/volume)Ordered By: Mei Cummins on 03-30-2024 Urea nitrogen [Mass/Vol] 22 mg/dL High 7-18 [facility] Comment on above: Performed By: #### L 500.2500 ####[facility] [address] [place], [address] Sodium levelOrdered By: Mei Cummins on 03-30-2024 Sodium [Moles/Vol] 143 mmol/L Normal 136-145 [facility] Comment on above: Performed By: #### L 500.2500 ####[facility] [address] [place], [address] Sodium level 143 mmol/L 136-145 [facility] Urea nitrogen [Mass/Vol]Orde red By: Mei Cummins on 03-30-2024 Serum or plasma urea nitrogen measurement (mass/volume) 22 mg/dL High 7-18 [facility] Wound Ctr History AND Physic diogo 03-30-2024 Wound Ctr History & Physical Normal [facility] CNOVon 03-23-2024 CNOV Normal [facility] CNPNon 03-22-2024 CNPN Normal [facility] CNOVSPon 03-21-2024 CNOVSP Normal [facility] CNPNon 03-16-2024 CNPN Normal [facility] CNOVon 03-15-2024 CNOV Normal [facility] CREATININE BLDon 03-14-2024 Creatinine [Mass/Vol] 0.89 mg/dL Normal 0.73-1.22 [facility] Comment on above: Order Comment: Speci men Type: BLOOD SPECIMENOrdering Facility: [facility] Address: [address] [place] [address] Performed By: #### C RET1 ####[facility] LABCLIA [id number] [place] [address] [place] Creatinine and Glomerular filtration rate.predicted panel (S/P/Bld) 86 mL/min/1.73m??? Normal >=60 [facility] Comment on above: Order Comment: Suni men Type: BLOOD SPECIMENOrdering Facility: [facility] Address: [address] [place] [address] Result Comment: Karey mated Glomerular Filtration Rate (eGFR) is calculated using the 2020 CKD-EPI creatinine equation. This equation utilizes serum creatinine, sex, and age as parameters. The creatinine assay has traceable calibration to isotope dilution-mass spectrometry. Refer to KDIGO guidelines for clinical interpretation. In patients with unstable renal function, e.g. those with acute kidney injury, the eGFR may not accurately reflect actual GFR. Performed By: #### C RET1 ####[facility] LABCLIA [id number] [place] [address] [place] [address] CHEST W IVCONon CT CHEST W IVCON Normal [facility] CNOVon 03-10-2024 CNOV Normal [facility] PVR ANK/JUARES/TOE MARTITA VAS LAB on 03-10-2024 PVR ANK/JUARES/TOE MARTITA VAS LAB Normal [facility] CNOVon 03-03-2024 CNOV Normal [facility] CNPNon 02-29-2024 CNPN Normal [facility] Basic Metabolic Profile (BMP )on 02-22-2024 BUN/CRE 44.0 RATIO High 10-20 [facility] Comment on above: Performed By: #### L 500.2500, L100.0500 ####[facility] [address] [place], [address] CA,Total 8.9 mg/dL Normal 8.5-10.1 [facility] Comment on above: Performed By: #### L 500.2500, L100.0500 ####[facility] [address] [place], [address] Chloride [Moles/Vol] 108 mmol/L High 98-107 [facility] Comment on above: Performed By: #### L 500.2500, L100.0500 ####[facility] [address] [place], [address] CO2 [Moles/Vol] 29.0 mmol/L Normal 21.0-32.0 [facility] Comment on above: Performed By: #### L 500.2500, L100.0500 ####[facility] [address] [place], [address] Creatinine [Mass/Vol] 0.61 mg/dL Low 0.70-1.30 [facility] Comment on above: Result Comment: The validity of the calculated GFR GFRAA in patients over70 years has not been determined. Clinical correlation isessential. Performed By: #### L 500.2500, L100.0500 ####[facility] [address] [place], [address] ECRCL 77.13 ml/min Normal [facility] Comment on above: Performed By: #### L 500.2500, L100.0500 ####[facility] [address] [place], [address] EST GFR - AA 162 mL/min Normal >60 [facility] Comment on above: Result Comment: Afri can [place] GFR Calc Performed By: #### L 500.2500, L100.0500 ####[facility] [address] [place], [address] GAP 4 Low 5-15 [facility] Comment on above: Performed By: #### L 500.2500, L100.0500 ####[facility] [address] [place], [address] GFR/1.73 sq M.predicted among non-blacks MDRD (S/P/Bld) [Vol rate/Area] 134 mL/min/{1.73_m2} Normal >60 [facility] Comment on above: Result Comment: Non- GFR Calc Performed By: #### L 500.2500, L100.0500 ####[facility] [address] [place], [address] Glucose [Mass/Vol] 159 mg/dL High 74-106 [facility] Comment on above: Result Comment: Fast ing Glucose result greater than or equal to 126 mg/dLsuggests DIABETES MELLITUS per A.D.A. criteria. Performed By: #### L 500.2500, L100.0500 ####[facility] [address] [place], [address] Potassium [Moles/Vol] 4.1 mmol/L Normal 3.5-5.1 [facility] Comment on above: Performed By: #### L 500.2500, L100.0500 ####[facility] [address] [place], [address] Sodium [Moles/Vol] 141 mmol/L Normal 136-145 [facility] Comment on above: Performed By: #### L 500.2500, L100.0500 ####[facility] [address] [place], [address] Urea nitrogen [Mass/Vol] 27 mg/dL High 7-18 [facility] Comment on above: Performed By: #### L 500.2500, L100.0500 ####[facility] [address] [place], [address] Blood urea nitrogen (BUN)/cr eatinine ratioOrdered By: Jacob Suazo on 02-22-2024 Urea nitrogen/Creatinine [Mass ratio] 44.0 mg/mg High 10-20 [facility] Blood urea nitrogen (BUN)/creatinine ratio 44.0 RATIO High -20 [facility] CBC-Complete Blood Cnt No Di ffon 02-22-2024 Erythrocyte distribution width (RBC) [Ratio] 16.0 % High 11.6-14.6 [facility] Comment on above: Performed By: #### L 500.2500, L100.0500 ####[facility] [address], [address] Hematocrit (Bld) [Volume fraction] 35.8 % Low 40-54 [facility] Comment on above: Performed By: #### L 500.2500, L100.0500 ####[facility] [address], [address] Hemoglobin (Bld) [Mass/Vol] 10.3 g/dL Low 13.0-16.5 [facility] Comment on above: Performed By: #### L 500.2500, L100.0500 ####[facility] [address] [place], [address] MCH (RBC) [Entitic mass] 25.4 pg Low 27.0-32.0 [facility] Comment on above: Performed By: #### L 500.2500, L100.0500 ####[facility] [address] [place], [address] MCHC (RBC) [Mass/Vol] 28.8 g/dL Low 32-36 [facility] Comment on above: Performed By: #### L 500.2500, L100.0500 ####[facility] [address] [place], [address] MCV (RBC) [Entitic vol] 88.2 fL Normal 80-94 [facility] Comment on above: Performed By: #### L 500.2500, L100.0500 ####[facility] [address] [place], [address] Platelet mean volume (Bld) [Entitic vol] 9.0 fL Normal 6.2-12.0 [facility] Comment on above: Performed By: #### L 500.2500, L100.0500 ####[facility] [address] [place], [address] Platelets (Bld) [#/Vol] 381 10*3/uL Normal 150-450 [facility] Comment on above: Performed By: #### L 500.2500, L100.0500 ####[facility] [address] [place], [address] RBC (Bld) [#/Vol] 4.06 10*6/uL Low 4.6-6.2 [facility] Comment on above: Performed By: #### L 500.2500, L100.0500 ####[facility] [address] [place], [address] RDW SD 52.1 fl High 35.1-43.9 [facility] Comment on above: Performed By: #### L 500.2500, L100.0500 ####[facility] [address] [place], [address] WBC (Bld) [#/Vol] 11.2 10*3/uL High 4.4-11.0 [facility] Comment on above: Performed By: #### L 500.2500, L100.0500 ####[facility] [address] [place], [address] Calcium [Mass/Vol]Ordered By : Jacob Suazo on 02-22-2024 Serum or plasma calcium measurement (mass/volume) 8.9 mg/dL 8.5-10.1 [facility] Carbon dioxide measurementOr dered By: Jacob Suazo on 02-22-2024 CO2 [Moles/Vol] 29.0 mmol/L 21.0-32.0 [facility] Carbon dioxide measurement 29.0 mmol/L 21.0-32.0 [facility] Chloride measurementOrdered By: Jacob Suazo on 02-22-2024 Chloride [Moles/Vol] 108 mmol/L High 98-107 [facility] Chloride measurement 108 mmol/L High 98-107 [facility] Creatinine [Mass/Vol]Ordered By: Jacob Suazo on 02-22-2024 Serum or plasma creatinine measurement (mass/volume) 0.61 mg/dL Low 0.70-1.30 [facility] Discharge Instructionon 01-31 Discharge Instruction Normal [facility] Erythrocyte distribution wid th (RBC) [Ratio]Ordered By: Jacob Suazo on 02-22-2024 Erythrocyte distribution width ratio 16.0 % High 11.6-14.6 [facility] Erythrocyte distribution width standard deviation 52.1 fl High 35.1-43.9 [facility] Erythrocyte distribution wid th ratioOrdered By: Jacob Suazo on 02-22-2024 Erythrocyte distribution width (RBC) [Ratio] 16.0 % High 11.6-14.6 [facility] Erythrocyte distribution wid th standard deviationOrdered By: Jacob Suazo on 02-22-2024 Erythrocyte distribution width (RBC) [Entitic vol] 52.1 fL High 35.1-43.9 [facility] Estimated glomerular filtrat ion rate (GFR) AmericanOrdered By: Jacob Suazo on 02-22-2024 Estimated GFR (MDRD) Amer 162 mL/min >60 [facility] Comment on above: GFR Calc Estimated glomerular filtration rate (GFR) 162 mL/min >60 [facility] Estimation of creatinine marybel aranceOrdered By: Jacob Suazo on 12-23-2024 Estimated Creatinine Clearance Calc 77.13 ml/min [facility] Estimation of creatinine clearance 77.13 ml/min [facility] Glomerular filtration rate ( GFR) estimationOrdered By: Jacob Suazo on 02-22-2024 Estimated GFR (MDRD) Non-Af Amer 134 mL/min >60 [facility] Comment on above: Non- GFR Calc Glomerular filtration rate (GFR) estimation 134 mL/min >60 [facility] Glucose measurementOrdered B y: Jacob Suazo on 02-22-2024 Glucose [Mass/Vol] 159 mg/dL High 74-106 [facility] Comment on above: Fasting Glucose resu lt greater than or equal to 126 mg/dL suggests DIABETES MELLITUS per A.D.A. criteria. Glucose measurement 159 mg/dL High 74-106 [facility] Hematocrit Auto (Bld) [Volum e fraction]Ordered By: Jacob Suazo on 02-22-2024 Hematocrit (Bld) [Volume fraction] 35.8 % Low 40-54 [facility] Automated blood hematocrit (percentage) 35.8 % Low 40-54 [facility] Hemoglobin measurementOrdere d By: Jacob Suazo on 02-22-2024 Hemoglobin (Bld) [Mass/Vol] 10.3 g/dL Low 13.0-16.5 [facility] Hemoglobin measurement 10.3 g/dL Low 13.0-16.5 [facility] MCV (RBC) [Entitic vol]Order ed By: Jacob Suazo on 02-22-2024 MCV (mean corpuscular volume) determination 88.2 fL 80-94 [facility] MCV (mean corpuscular volume ) determinationOrdered By: Jacob Suazo on 02-22-2024 MCV (RBC) [Entitic vol] 88.2 fL 80-94 [facility] Mean corpuscular hemoglobin (MCH) determinationOrdered By: Jacob Suazo on 02-22-2024 MCH (RBC) [Entitic mass] 25.4 pg Low 27.0-32.0 [facility] Mean corpuscular hemoglobin (MCH) determination 25.4 pg Low 27.0-32.0 [facility] Mean corpuscular hemoglobin concentration (MCHC) determinationOrdered By: Jacob Suazo on 02-22-2024 MCHC (RBC) [Mass/Vol] 28.8 g/dL Low 32-36 [facility] Mean corpuscular hemoglobin concentration (MCHC) determination 28.8 g/dL Low 32-36 [facility] Mean platelet volume determi nationOrdered By: Jacob Suazo on 02-22-2024 Platelet mean volume (Bld) [Entitic vol] 9.0 fL 6.2-12.0 [facility] Mean platelet volume determination 9.0 fl 6.2-12.0 [facility] Platelet countOrdered By: Neto Suazo on 02-22-2024 Platelets (Bld) [#/Vol] 381 10*3/uL 150-450 [facility] Platelet count 381 K/mm3 150-450 [facility] Potassium measurementOrdered By: Jacob Suazo on 02-22-2024 Potassium [Moles/Vol] 4.1 mmol/L 3.5-5.1 [facility] Potassium measurement 4.1 mmol/L 3.5-5.1 [facility] RBC Auto (Bld) [#/Vol]Ordere d By: Jacob Suazo on 02-22-2024 RBC (Bld) [#/Vol] 4.06 10*6/uL Low 4.6-6.2 [facility] Automated blood erythrocyte count 4.06 M/mm3 Low 4.6-6.2 [facility] Serum anion gap measurementO rdered By: Jacob Suazo on 02-22-2024 Anion gap [Moles/Vol] 4 mmol/L Low 5-15 [facility] Serum anion gap measurement 4 Low 5-15 [facility] Serum or plasma calcium ry urement (mass/volume)Ordered By: Jacob Suazo on 02-22-2024 Calcium [Mass/Vol] 8.9 mg/dL 8.5-10.1 [facility] Serum or plasma creatinine m easurement (mass/volume)Ordered By: Jacob Suazo on 02-22-2024 Creatinine [Mass/Vol] 0.61 mg/dL Low 0.70-1.30 [facility] Comment on above: The validity of the calculated GFR & GFRAA in patients over 70 years has not been determined. Clinical correlation is essential. Serum or plasma urea nitroge n measurement (mass/volume)Ordered By: Jacob Suazo on 02-22-2024 Urea nitrogen [Mass/Vol] 27 mg/dL High 09-16 [facility] Sodium levelOrdered By: Terrell Suazo on 02-22-2024 Sodium [Moles/Vol] 141 mmol/L 136-145 [facility] Sodium level 141 mmol/L 136-145 [facility] Urea nitrogen [Mass/Vol]Orde red By: Jacob Suazo on 02-22-2024 Serum or plasma urea nitrogen measurement (mass/volume) 27 mg/dL High 7-18 [facility] White blood cell (WBC) count Ordered By: Jacob Suazo on 02-22-2024 WBC (Bld) [#/Vol] 11.2 10*3/uL High 4.4-11.0 [facility] White blood cell (WBC) count 11.2 K/mm3 High 4.4-11.0 [facility] ALP [Catalytic activity/Vol] Ordered By: Sushila Tita on 02-20-2024 Serum or plasma alkaline phosphatase measurement 91 U/L 45-117 [facility] ALT [Catalytic activity/Vol] Ordered By: Sushila White on 02-20-2024 Serum or plasma alanine aminotransferase (ALT) measurement 15 U/L Low 16-61 [facility] Absolute neutrophil countOrd ered By: Sushila White on 02-20-2024 Neutrophils (Bld) [#/Vol] 5.9 10*3/uL 2.0-7.7 [facility] Absolute neutrophil count 5.9 X10^3/uL 2.0-7.7 [facility] Albumin [Mass/Vol]Ordered By : Sushila White on 02-20-2024 Serum or plasma albumin measurement (mass/volume) 2.3 g/dL Low 3.2-5.0 [facility] Albumin to globulin ratioOrd ered By: Sushila White on 02-20-2024 Albumin/Globulin [Mass ratio] 0.6 {ratio} Low 0.9-2.4 [facility] Albumin to globulin ratio 0.6 RATIO Low 0.9-2.4 [facility] Basophil percentageOrdered B y: Sushila White on 02-20-2024 Basophils/100 WBC (Bld) 0.0 % 0-1 [facility] Bilirubin, totalOrdered By: Sushila White on 02-20-2024 Bilirubin [Mass/Vol] 0.40 mg/dL 0.20-1.00 [facility] Comment on above: For patients on eltr ombopag therapy, use of Dimension [place] TBIL is not recommended. Bilirubin, total 0.40 mg/dL 0.20-1.00 [facility] CBC W/Diff, Automatedon 12-2 Absolute Lymph 0.21 X10 3/uL Low 0.83-4.51 [facility] Comment on above: Performed By: #### L 100.0100, L500.4050 ####[facility] [address] [place], [address] Absolute Neut 5.9 X10 3/uL Normal 2.0-7.7 [facility] Comment on above: Performed By: #### L 100.0100, L500.4050 ####[facility] [address] [place], [address] Basophils/100 WBC (Bld) 0.0 % Normal 0-1 [facility] Comment on above: Performed By: #### L 100.0100, L500.4050 ####[facility] [address] [place], [address] Eosinophils/100 WBC (Bld) 0.0 % Normal 0-5 [facility] Comment on above: Performed By: #### L 100.0100, L500.4050 ####[facility] [address] [place], [address] Erythrocyte distribution width (RBC) [Ratio] 16.0 % High 11.6-14.6 [facility] Comment on above: Performed By: #### L 100.0100, L500.4050 ####[facility] [address] [place], [address] Hematocrit (Bld) [Volume fraction] 33.6 % Low 40-54 [facility] Comment on above: Performed By: #### L 100.0100, L500.4050 ####[facility] [address] [place], [address] Hemoglobin (Bld) [Mass/Vol] 10.0 g/dL Low 13.0-16.5 [facility] Comment on above: Performed By: #### L 100.0100, L500.4050 ####[facility] [address] [place], [address] IG% 1.400 High 0.0-0.9 [facility] Comment on above: Result Comment: IG% - Immature Granulocytes (promyelocytes, myelocytes andmetamyelocytes) > 1% indicates that a LEFT SHIFT is Present. Performed By: #### L 100.0100, L500.4050 ####[facility] [address] [place], [address] Lymphocytes/100 WBC (Bld) 3.4 % Low 19-41 [facility] Comment on above: Performed By: #### L 100.0100, L500.4050 ####[facility] [address] [place], [address] MCH (RBC) [Entitic mass] 25.7 pg Low 27.0-32.0 [facility] Comment on above: Performed By: #### L 100.0100, L500.4050 ####[facility] [address] [place], [address] MCHC (RBC) [Mass/Vol] 29.8 g/dL Low 32-36 [facility] Comment on above: Performed By: #### L 100.0100, L500.4050 ####[facility] [address] [place], [address] MCV (RBC) [Entitic vol] 86.4 fL Normal 80-94 [facility] Comment on above: Performed By: #### L 100.0100, L500.4050 ####[facility] [address] [place], [address] Monocytes/100 WBC (Bld) 1.0 % Normal 0-10 [facility] Comment on above: Performed By: #### L 100.0100, L500.4050 ####[facility] [address] [place], [address] Neutrophils/100 WBC (Bld) 94.2 % High 47-70 [facility] Comment on above: Performed By: #### L 100.0100, L500.4050 ####[facility] [address] [place], [address] Nucleated RBC (Bld) [#/Vol] 0 10*3/uL Normal 0-5 [facility] Comment on above: Performed By: #### L 100.0100, L500.4050 ####[facility] [address] [place], [address] Platelet mean volume (Bld) [Entitic vol] 8.7 fL Normal 6.2-12.0 [facility] Comment on above: Performed By: #### L 100.0100, L500.4050 ####[facility] [address] [place], [address] Platelets (Bld) [#/Vol] 370 10*3/uL Normal 150-450 [facility] Comment on above: Performed By: #### L 100.0100, L500.4050 ####[facility] [address] [place], [address] RBC (Bld) [#/Vol] 3.89 10*6/uL Low 4.6-6.2 [facility] Comment on above: Performed By: #### L 100.0100, L500.4050 ####[facility] [address] [place], [address] RDW SD 50.3 fl High 35.1-43.9 [facility] Comment on above: Performed By: #### L 100.0100, L500.4050 ####[facility] [address] [place], [address] WBC (Bld) [#/Vol] 6.2 10*3/uL Normal 4.4-11.0 [facility] Comment on above: Performed By: #### L 100.0100, L500.4050 ####[facility] [address] [place], [address] Comprehensive Metabolic Prof ilon 02-20-2024 Albumin [Mass/Vol] 2.3 g/dL Low 3.2-5.0 [facility] Comment on above: Performed By: #### L 100.0100, L500.4050 ####[facility] [address] [place], [address] Albumin/Globulin [Mass ratio] 0.6 {ratio} Low 0.9-2.4 [facility] Comment on above: Performed By: #### L 100.0100, L500.4050 ####[facility] [address] [place], [address] ALK P 91 U/L Normal 45-117 [facility] Comment on above: Performed By: #### L 100.0100, L500.4050 ####[facility] [address] [place], [address] ALT [Catalytic activity/Vol] 15 U/L Low 16-61 [facility] Comment on above: Performed By: #### L 100.0100, L500.4050 ####[facility] [address] [place], [address] AST [Catalytic activity/Vol] 16 U/L Normal 15-37 [facility] Comment on above: Performed By: #### L 100.0100, L500.4050 ####[facility] [address] [place], [address] Bilirubin [Mass/Vol] 0.40 mg/dL Normal 0.20-1.00 [facility] Comment on above: Result Comment: For patients on eltrombopag therapy, use of [place] TBIL is not recommended. Performed By: #### L 100.0100, L500.4050 ####[facility] [address] [place], [address] BUN/CRE 28.0 RATIO High 10-20 [facility] Comment on above: Performed By: #### L 100.0100, L500.4050 ####[facility] [address] [place], [address] CA,Total 8.9 mg/dL Normal 8.5-10.1 [facility] Comment on above: Performed By: #### L 100.0100, L500.4050 ####[facility] [address] [place], [address] Chloride [Moles/Vol] 106 mmol/L Normal 98-107 [facility] Comment on above: Performed By: #### L 100.0100, L500.4050 ####[facility] [address] [place], [address] CO2 [Moles/Vol] 28.0 mmol/L Normal 21.0-32.0 [facility] Comment on above: Performed By: #### L 100.0100, L500.4050 ####[facility] [address] [place], [address] Creatinine [Mass/Vol] 0.57 mg/dL Low 0.70-1.30 [facility] Comment on above: Result Comment: The validity of the calculated GFR GFRAA in patients over70 years has not been determined. Clinical correlation isessential. Performed By: #### L 100.0100, L500.4050 ####[facility] [address] [place], [address] ECRCL 76.62 ml/min Normal [facility] Comment on above: Performed By: #### L 100.0100, L500.4050 ####[facility] [address] [place], [address] EST GFR - AA 176 mL/min Normal >60 [facility] Comment on above: Result Comment: Afri can [place]is[place] GFR Calc Performed By: #### L 100.0100, L500.4050 ####[facility] [address] [place], [address] GAP 5 Normal 5-15 [facility] Comment on above: Performed By: #### L 100.0100, L500.4050 ####[facility] [address] [place], [address] GFR/1.73 sq M.predicted among non-blacks MDRD (S/P/Bld) [Vol rate/Area] 145 mL/min/{1.73_m2} Normal >60 [facility] Comment on above: Result Comment: Non- GFR Calc Performed By: #### L 100.0100, L500.4050 ####[facility] [address] [place], [address] Globulin (S) [Mass/Vol] 3.8 g/dL Normal 2.2-4.2 [facility] Comment on above: Performed By: #### L 100.0100, L500.4050 ####[facility] [address] [place], [address] Glucose [Mass/Vol] 167 mg/dL High 74-106 [facility] Comment on above: Result Comment: Fast ing Glucose result greater than or equal to 126 mg/dLsuggests DIABETES MELLITUS per A.D.A. criteria. Performed By: #### L 100.0100, L500.4050 ####[facility] [address] [place], [address] Potassium [Moles/Vol] 3.9 mmol/L Normal 3.5-5.1 [facility] Comment on above: Performed By: #### L 100.0100, L500.4050 ####[facility] [address] [place], [address] Sodium [Moles/Vol] 139 mmol/L Normal 136-145 [facility] Comment on above: Performed By: #### L 100.0100, L500.4050 ####[facility] [address] [place], [address] T PROT 6.1 g/dL Low 6.4-8.2 [facility] Comment on above: Performed By: #### L 100.0100, L500.4050 ####[facility] [address] [place], [address] Urea nitrogen [Mass/Vol] 16 mg/dL Normal 7-18 [facility] Comment on above: Performed By: #### L 100.0100, L500.4050 ####[facility] [address] [place], [address] Eosinophil percentageOrdered By: Tita on 02-20-2024 Eosinophils/100 WBC (Bld) 0.0 % 0-5 [facility] Eosinophil percentage 0.0 % 0-1 [facility] Immature granulocytes/100 WB C Auto (Bld)Ordered By: Tita on 02-20-2024 Immature granulocytes/100 WBC (Bld) 1.400 % High 0.0-0.9 [facility] Comment on above: IG% - Immature Granu locytes (promyelocytes, myelocytes and metamyelocytes) > 1% indicates that a LEFT SHIFT is Present. Automated immature granulocyte percentage 1.400 % High 0.0-0.9 [facility] Laboratory - Chemistry and C hemistry - challengeOrdered By: Sushila Tita on 02-20-2024 AST [Catalytic activity/Vol] 16 U/L 15-37 [facility] Lymphocytes Auto (Unsp spec) [#/Vol]Ordered By: Sushila White on 02-20-2024 Lymphocytes (Bld) [#/Vol] 0.21 10*3/uL Low 0.83-4.51 [facility] Absolute lymphocyte count 0.21 X10^3/uL Low 0.83-4.51 [facility] Lymphocytes/100 WBC Auto (Un sp spec)Ordered By: Sushila White on 02-20-2024 Lymphocytes/100 WBC (Bld) 3.4 % Low 19-41 [facility] Automated lymphocyte count as percentage of total leukocytes 3.4 % Low -41 [facility] Monocyte percentageOrdered B y: White on 02-20-2024 Monocytes/100 WBC (Bld) 1.0 % 0-10 [facility] Monocyte percentage 1.0 % 0-10 [facility] Neutrophil percentageOrdered By: on 02-20-2024 Neutrophils/100 WBC (Bld) 94.2 % High 47-70 [facility] Neutrophil percentage 94.2 % High 47-70 [facility] No Panel InformationOrdered By: Sushila White on 02-20-2024 16 U/L 15-37 [facility] Nucleated red blood cell per centageOrdered By: on 02-20-2024 Nucleated RBC/100 WBC (Bld) [Ratio] 0 % 0-5 [facility] Nucleated red blood cell percentage 0 % 0-5 [facility] Serum globulin measurementOr dered By: Sushila Tita on 02-20-2024 Globulin (S) [Mass/Vol] 3.8 g/dL 2.2-4.2 [facility] Serum globulin measurement 3.8 g/dL 2.2-4.2 [facility] Serum or plasma alanine pierre otransferase (ALT) measurementOrdered By: on 02-20-2024 ALT [Catalytic activity/Vol] 15 U/L Low 16-61 [facility] Serum or plasma albumin ry urement (mass/volume)Ordered By: on 02-20-2024 Albumin [Mass/Vol] 2.3 g/dL Low 3.2-5.0 [facility] Serum or plasma alkaline josue sphatase measurementOrdered By: Sushila Rivers on 02-20-2024 ALP [Catalytic activity/Vol] 91 U/L 45-117 [facility] Total proteinOrdered By: Mickey Rivers on 02-20-2024 Protein [Mass/Vol] 6.1 g/dL Low 6.4-8.2 [facility] Total protein 6.1 g/dL Low 6.4-8.2 [facility] 12 Lead EKGon 02-19-2024 12 Lead EKG Normal [facility] Basic Metabolic Profile (BMP )on 02-19-2024 BUN/CRE 24.5 RATIO High 12-19 [facility] Comment on above: Order Comment: 'TROP ' Serial specimen #1, #2 or #3: 1 Performed By: #### L 500.2500, L100.0100, L501.4020 ####[facility] [address] [place], [address] CA,Total 9.3 mg/dL Normal 8.5-10.1 [facility] Comment on above: Order Comment: 'TROP ' Serial specimen #1, #2 or #3: 1 Performed By: #### L 500.2500, L100.0100, L501.4020 ####[facility] [address] [place], [address] Chloride [Moles/Vol] 104 mmol/L Normal 98-107 [facility] Comment on above: Order Comment: 'TROP ' Serial specimen #1, #2 or #3: 1 Performed By: #### L 500.2500, L100.0100, L501.4020 ####[facility] [address] [place], [address] CO2 [Moles/Vol] 26.0 mmol/L Normal 21.0-32.0 [facility] Comment on above: Order Comment: 'TROP ' Serial specimen #1, #2 or #3: 1 Performed By: #### L 500.2500, L100.0100, L501.4020 ####[facility] [address] [place], [address] Creatinine [Mass/Vol] 0.73 mg/dL Normal 0.70-1.30 [facility] Comment on above: Order Comment: 'TROP ' Serial specimen #1, #2 or #3: 1 Result Comment: The validity of the calculated GFR GFRAA in patients over70 years has not been determined. Clinical correlation isessential. Performed By: #### L 500.2500, L100.0100, L501.4020 ####[facility] [address] [place], [address] ECRCL 77.13 ml/min Normal [facility] Comment on above: Order Comment: 'TROP ' Serial specimen #1, #2 or #3: 1 Performed By: #### L 500.2500, L100.0100, L501.4020 ####[facility] [address] [place], [address] EST GFR - AA 132 mL/min Normal >60 [facility] Comment on above: Order Comment: 'TROP ' Serial specimen #1, #2 or #3: 1 Result Comment: Afri can [place]is[place] GFR Calc Performed By: #### L 500.2500, L100.0100, L501.4020 ####[facility] [address] [place], [address] GAP 7 Normal 5-15 [facility] Comment on above: Order Comment: 'TROP ' Serial specimen #1, #2 or #3: 1 Performed By: #### L 500.2500, L100.0100, L501.4020 ####[facility] [address] [place], [address] GFR/1.73 sq M.predicted among non-blacks MDRD (S/P/Bld) [Vol rate/Area] 109 mL/min/{1.73_m2} Normal >60 [facility] Comment on above: Order Comment: 'TROP ' Serial specimen #1, #2 or #3: 1 Result Comment: Non- GFR Calc Performed By: #### L 500.2500, L100.0100, L501.4020 ####[facility] [address] [place], [address] Glucose [Mass/Vol] 120 mg/dL High 74-106 [facility] Comment on above: Order Comment: 'TROP ' Serial specimen #1, #2 or #3: 1 Result Comment: Fast ing Glucose result from 100 to 125 mg/dLsuggests IMPAIRED HOMEOSTASIS per A.D.A. criteria. Performed By: #### L 500.2500, L100.0100, L501.4020 ####[facility] [address] [place], [address] Potassium [Moles/Vol] 4.9 mmol/L Normal 3.5-5.1 [facility] Comment on above: Order Comment: 'TROP ' Serial specimen #1, #2 or #3: 1 Performed By: #### L 500.2500, L100.0100, L501.4020 ####[facility] [address] [place], [address] Sodium [Moles/Vol] 137 mmol/L Normal 136-145 [facility] Comment on above: Order Comment: 'TROP ' Serial specimen #1, #2 or #3: 1 Performed By: #### L 500.2500, L100.0100, L501.4020 ####[facility] [address] [place], [address] Urea nitrogen [Mass/Vol] 18 mg/dL Normal 7-18 [facility] Comment on above: Order Comment: 'TROP ' Serial specimen #1, #2 or #3: 1 Performed By: #### L 500.2500, L100.0100, L501.4020 ####[facility] [address] [place], [address] CBC W/Diff, Automatedon 12-2 0-4 Absolute Lymph 0.43 X10 3/uL Low 0.83-4.51 [facility] Comment on above: Performed By: #### L 500.2500, L100.0100, L501.4020 ####[facility] [address] [place], [address] Absolute Neut 11.0 X10 3/uL High 2.0-7.7 [facility] Comment on above: Performed By: #### L 500.2500, L100.0100, L501.4020 ####[facility] [address] [place], [address] Basophils/100 WBC (Bld) 0.2 % Normal 0-1 [facility] Comment on above: Performed By: #### L 500.2500, L100.0100, L501.4020 ####[facility] [address] [place], [address] Eosinophils/100 WBC (Bld) 0.2 % Normal 0-5 [facility] Comment on above: Performed By: #### L 500.2500, L100.0100, L501.4020 ####[facility] [address] [place], [address] Erythrocyte distribution width (RBC) [Ratio] 15.9 % High 11.6-14.6 [facility] Comment on above: Performed By: #### L 500.2500, L100.0100, L501.4020 ####[facility] [address] [place], [address] Hematocrit (Bld) [Volume fraction] 38.6 % Low 40-54 [facility] Comment on above: Performed By: #### L 500.2500, L100.0100, L501.4020 ####[facility] [address] [place], [address] Hemoglobin (Bld) [Mass/Vol] 11.4 g/dL Low 13.0-16.5 [facility] Comment on above: Performed By: #### L 500.2500, L100.0100, L501.4020 ####[facility] [address] [place], [address] IG% 1.300 High 0.0-0.9 [facility] Comment on above: Result Comment: IG% - Immature Granulocytes (promyelocytes, myelocytes andmetamyelocytes) > 1% indicates that a LEFT SHIFT is Present. Performed By: #### L 500.2500, L100.0100, L501.4020 ####[facility] [address] [place], [address] Lymphocytes/100 WBC (Bld) 3.6 % Low 19-41 [facility] Comment on above: Performed By: #### L 500.2500, L100.0100, L501.4020 ####[facility] [address] [place], [address] MCH (RBC) [Entitic mass] 26.2 pg Low 27.0-32.0 [facility] Comment on above: Performed By: #### L 500.2500, L100.0100, L501.4020 ####[facility] [address] [place], [address] MCHC (RBC) [Mass/Vol] 29.5 g/dL Low 32-36 [facility] Comment on above: Performed By: #### L 500.2500, L100.0100, L501.4020 ####[facility] [address] [place], [address] MCV (RBC) [Entitic vol] 88.7 fL Normal 80-94 [facility] Comment on above: Performed By: #### L 500.2500, L100.0100, L501.4020 ####[facility] [address] [place], [address] Monocytes/100 WBC (Bld) 2.4 % Normal 0-10 [facility] Comment on above: Performed By: #### L 500.2500, L100.0100, L501.4020 ####[facility] [address] [place], [address] Neutrophils/100 WBC (Bld) 92.3 % High 47-70 [facility] Comment on above: Performed By: #### L 500.2500, L100.0100, L501.4020 ####[facility] [address] [place], [address] Nucleated RBC (Bld) [#/Vol] 0.2 10*3/uL Normal 0-5 [facility] Comment on above: Performed By: #### L 500.2500, L100.0100, L501.4020 ####[facility] [address] [place], [address] Platelet mean volume (Bld) [Entitic vol] 8.8 fL Normal 6.2-12.0 [facility] Comment on above: Performed By: #### L 500.2500, L100.0100, L501.4020 ####[facility] [address] [place], [address] Platelets (Bld) [#/Vol] 408 10*3/uL Normal 150-450 [facility] Comment on above: Performed By: #### L 500.2500, L100.0100, L501.4020 ####[facility] [address] [place], [address] RBC (Bld) [#/Vol] 4.35 10*6/uL Low 4.6-6.2 [facility] Comment on above: Performed By: #### L 500.2500, L100.0100, L501.4020 ####[facility] [address] [place], [address] RDW SD 51.8 fl High 35.1-43.9 [facility] Comment on above: Performed By: #### L 500.2500, L100.0100, L501.4020 ####[facility] [address] [place], [address] WBC (Bld) [#/Vol] 11.9 10*3/uL High 4.4-11.0 [facility] Comment on above: Performed By: #### L 500.2500, L100.0100, L501.4020 ####[facility] [address] [place], [address] Chest PA and Lateralon 02-18 Chest PA and Lateral Normal [facility] Emergency Department Summary on 02-19-2024 Emergency Department Summary Normal [facility] H AND P Exam - Hospitaliston 02-19-2024 H&P Exam - Hospitalist Normal [facility] Influenza virus A and B and SARS-CoV-2 (COVID-19) and Respiratory syncytial virus RNAOrdered By: Sushila Rivers on 02-19-2024 SARS-CoV-2 (COVID-19) RNA DORYS+probe Ql (Unsp spec) [facility] L501.4020on 02-19-2024 TROPONIN-I HS 51 pg/mL Normal 3.0-78.0 [facility] Comment on above: Order Comment: 'TROP ' Serial specimen #1, #2 or #3: 1 Result Comment: Plea se Note: New Test Units and Gender Specific Reference Ranges. For more information see Policy Stat Procedure [place] High Sensitivity Troponin (TNIH) and attachments. Performed By: #### L 500.2500, L100.0100, L501.4020 ####[facility] [address] [place], [address] M100.678on 02-19-2024 M100.678 Pending SARS-CoV-2 (COVID 19) Negative INFLUENZA A Negative INFLUENZA B Negative RSV PCR Negative Normal [facility] Comment on above: Performed By: #### M 100.678 ####[facility] [address] [place], [address] Magnesiumon 12-20-2024 Magnesium [Mass/Vol] 2.3 mg/dL Normal 1.6-2.6 [facility] Comment on above: Order Comment: Comme nts: may add to ED labs Performed By: #### L 509.7000, L501.5200 ####[facility] [address] [place], [place], [address] Magnesium measurementOrdered By: Sushila Rivesr on 02-19-2024 Magnesium [Mass/Vol] 2.3 mg/dL 1.6-2.6 [facility] Magnesium measurement 2.3 mg/dL 1.6-2.6 [facility] Procalcitoninon 02-19-2024 Procalcitonin 0.26 ng/mL High 0.00-0.09 [facility] Comment on above: Result Comment: A pr ocalcitonin (PCT) level above 2.0 ng/mL on the first day of ICU admission is associated with a high risk for progression to severe sepsis and/or septic shock. A PCT level below 0.5 ng/mL on the first day of ICU admission is associated with a low risk for progression to severe and/or septic shock. Note: Concentrations <0.5 ng/mL do not exclude an infection on account of localized infections (without systemic signs) which can be associated with such low concentrations, or a systemic infection in its initial stages (<6 hours). Furthermore, increased procalcitonin can occur without infection. PCT concentrations between 0.5 and 2.0 ng/mL should be interpreted taking into account the patient's history. It is recommended to retest PCT within 6-24 hours if any concentrations <2 ng/mL are obtained. Performed By: #### L 509.7000, L501.5200 ####[facility] [address] [place], [place], [address] Procalcitonin [Mass/Vol]Orde red By: Sushila Rivers on 02-19-2024 Procalcitonin 0.26 ng/mL High 0.00-0.09 [facility] Comment on above: A procalcitonin (PCT ) level above 2.0 ng/mL on the first day of ICU admission is associated with a high risk for progression to severe sepsis and/or septic shock. A PCT level below 0.5 ng/mL on the first day of ICU admission is associated with a low risk for progression to severe and/or septic shock. Note: Concentrations <0.5 ng/mL do not exclude an infection on account of localized infections (without systemic signs) which can be associated with such low concentrations, or a systemic infection in its initial stages (<6 hours). Furthermore, increased procalcitonin can occur without infection. PCT concentrations between 0.5 and 2.0 ng/mL should be interpreted taking into account the patient's history. It is recommended to retest PCT within 6-24 hours if any concentrations <2 ng/mL are obtained. Serum procalcitonin measurement 0.26 ng/mL High 0.00-0.09 [facility] RESPIRATORY PANEL MOLECULARo n 02-19-2024 RP PANEL Normal [facility] Comment on above: Performed By: #### M 100.638 ####[facility] [address] [place], [address] Respiratory pathogens DNA an d RNA panel DORYS+probe (Resp)Ordered By: Sushila Rivers on 02-19-2024 Respiratory Panel (PCR) [facility] Troponin IOrdered By: Kelly Marques on 02-19-2024 Troponin I High Sensitivity 51 pg/mL 3.0-78.0 [facility] Comment on above: Please Note: New Rebecca t Units and Gender Specific Reference Ranges. For more information see Policy Stat Procedure [place] High Sensitivity Troponin (TNIH) and attachments. Troponin I 51 pg/mL 3.0-78.0 [facility] CNPNon 02-18-2024 CNPN Normal [facility] PVR ANK/JUARES/TOE MARTITA VAS LAB on 02-17-2024 PVR ANK/JUARES/TOE MARTITA VAS LAB Normal [facility] US ABD AORTA COMPLETE VAS LA Bon 02-17-2024 US ABD AORTA COMPLETE VAS LAB Normal [facility] CNOVon 02-16-2024 CNOV Normal [facility] Gastroenterology Visit Repor ton 02-11-2024 Gastroenterology Visit Report Normal [facility] CNOVon 02-05-2024 CNOV Normal [facility] US VENOUS INCOMPETENCY MARTITA V LABon 02-04-2024 US VENOUS INCOMPETENCY MARTITA VAS LAB Normal [facility] CREATININE BLDon 02-01-2024 Creatinine [Mass/Vol] 0.87 mg/dL Normal 0.73-1.22 [facility] Comment on above: Order Comment: Speci men Type: BLOOD SPECIMENOrdering Facility: [facility] Address: [address] [place] [address] Performed By: #### C RET1 ####[facility] [id number] [place] [address] [place] Creatinine and Glomerular filtration rate.predicted panel (S/P/Bld) 87 mL/min/1.73m??? Normal >=60 [facility] Comment on above: Order Comment: Speci men Type: BLOOD SPECIMENOrdering Facility: [facility] Address: [address] [place] [address] Result Comment: Karey mated Glomerular Filtration Rate (eGFR) is calculated using the 2020 CKD-EPI creatinine equation. This equation utilizes serum creatinine, sex, and age as parameters. The creatinine assay has traceable calibration to isotope dilution-mass spectrometry. Refer to KDIGO guidelines for clinical interpretation. In patients with unstable renal function, e.g. those with acute kidney injury, the eGFR may not accurately reflect actual GFR. Performed By: #### C RET1 ####[facility] [id number] [place] [address] [place] CNOVon 01-21-2024 CNOV Normal [facility] Bacteria Spec Resp Culton Bacteria identified Respiratory culture Nom (Unsp spec) Abnormal [facility] Comment on above: Performed By: #### 3 2355-0 ####[facility] LABCLIA [id number] [place] [address] [place] CNPNon 01-20-2024 CNPN Normal [facility] CNOVon 01-19-2024 CNOV Normal [facility] CT CHEST WO IVCONon 01-12-20 CT CHEST WO IVCON Normal [facility] CNPNon 01-08-2024 CNPN Normal [facility] Brain/Head without Contrasto n 01-07-2024 Brain/Head without Contrast Normal [facility] Emergency Department Summary on 01-07-2024 Emergency Department Summary Normal [facility] Spine Cervical without Contr ason 01-07-2024 Spine Cervical without Contras Normal [facility] CNOVon 01-05-2024 CNOV Normal [facility] CNPNon 01-05-2024 CNPN Normal [facility] XR ANKLE 3V AP/LAT/OBL LTon 01-05-2024 XR ANKLE 3V AP/LAT/OBL LT Normal [facility] CNOVon 12-24-2023 CNOV Normal [facility] CNOVon 12-23-2023 CNOV Normal [facility] CNPNon 12-22-2023 CNPN Normal [facility] CNOVon 12-21-2023 CNOV Normal [facility] CNPNon 12-15-2023 CNPN Normal [facility] CNPNon 12-11-2023 CNPN Normal [facility] Bacteria Spec Resp Culton Bacteria identified Respiratory culture Nom (Unsp spec) Abnormal [facility] Comment on above: Performed By: #### 3 2355-0 ####[facility] LABCLIA [id number] [place] [address] [place] CBC W Auto Differential pane l (Bld)on 12-08-2023 Basophils (Bld) [#/Vol] [facility] Basophils/100 WBC (Bld) 0.2 % [facility] Differential cell count method Nom (Bld) Auto [facility] Eosinophils (Bld) [#/Vol] [facility] Eosinophils/100 WBC (Bld) 0.0 % [facility] Erythrocyte distribution width (RBC) [Ratio] 16.6 % High 11.5 - 15.0 % [facility] [facility] Hematocrit (Bld) [Volume fraction] 40.0 % 39.0 - 51.0 % [facility] Hemoglobin (Bld) [Mass/Vol] 11.8 g/dL Low 13.0 - 17.0 g/dL [facility] Immature granulocytes (Bld) [#/Vol] 0.05 10*3/uL [facility] Immature granulocytes/100 WBC (Bld) 0.4 % [facility] Interpretation and review of laboratory results Abnormal [facility] Lymphocytes (Bld) [#/Vol] 0.49 10*3/uL Low [facility] Lymphocytes/100 WBC (Bld) 4.0 % [facility] MCH (RBC) [Entitic mass] 27.4 pg 26.0 - 34.0 pg [facility] MCHC (RBC) [Mass/Vol] 29.5 g/dL Low 30.5 - 36.0 g/dL [facility] MCV (RBC) [Entitic vol] 92.8 fL 80.0 - 100.0 fL [facility] Monocytes (Bld) [#/Vol] 0.37 10*3/uL [facility] Monocytes/100 WBC (Bld) 3.0 % [facility] Neutrophils (Bld) [#/Vol] 11.33 10*3/uL High [facility] Neutrophils/100 WBC (Bld) 92.4 % [facility] Nucleated RBC (Bld) [#/Vol] [facility] Nucleated RBC/100 WBC (Bld) [Ratio] 0.0 % /100 WBC [facility] Platelet mean volume (Bld) [Entitic vol] 9.8 fL 9.0 - 12.7 fL [facility] Platelets (Bld) [#/Vol] 171 10*3/uL [facility] RBC (Bld) [#/Vol] 4.31 10*6/uL 4.20 - 6.00 m/uL [facility] WBC (Bld) [#/Vol] 12.26 10*3/uL High [facility] Basophils (Bld) [#/Vol] 10*3/uL Normal <0.11 [facility] Comment on above: Order Comment: Speci men Type: BLOOD SPECIMENOrdering Facility: [facility] Address: [address] [place] [address] Performed By: #### 5 7021-8 ####[facility] [id number] [place] [id number] [place] Basophils/100 WBC (Bld) 0.2 % Normal [facility] Comment on above: Order Comment: Speci men Type: BLOOD SPECIMENOrdering Facility: [facility] Address: [address] [place] [address] Performed By: #### 5 7021-8 ####[facility]ITALMARQUESLIA [id number] [place] [address] [place] Differential cell count method Nom (Bld) Auto Normal [facility] Comment on above: Order Comment: Speci men Type: BLOOD SPECIMENOrdering Facility: [facility] Address: [address] [place] [address] Performed By: #### 5 7021-8 ####[facility]ITALMARQUESA [id number] [place] [address] [place] Eosinophils (Bld) [#/Vol] 10*3/uL Normal <0.46 [facility] Comment on above: Order Comment: Speci men Type: BLOOD SPECIMENOrdering Facility: [facility] Address: [address] [place] [address] Performed By: #### 5 7021-8 ####[facility]ITALA [id number] [place] [address] [place] Eosinophils/100 WBC (Bld) 0.0 % Normal [facility] Comment on above: Order Comment: Speci men Type: BLOOD SPECIMENOrdering Facility: [facility] Address: [address] [place] [address] Performed By: #### 5 7021-8 ####[facility] CENTERLIA [id number] [place] [address] [place] Erythrocyte distribution width (RBC) [Ratio] 16.6 % High 11.5-15.0 [facility] Comment on above: Order Comment: Speci men Type: BLOOD SPECIMENOrdering Facility: [facility] Address: [address] [place] [address] Performed By: #### 5 7021-8 ####[facility]ITALNCLIA [id number] [place] [address] [place] Hematocrit (Bld) [Volume fraction] 40.0 % Normal 39.0-51.0 [facility] Comment on above: Order Comment: Speci men Type: BLOOD SPECIMENOrdering Facility: [facility] Address: [address] [place] [address] Performed By: #### 5 7021-8 ####[facility] CENTERLI [id number] [place] [address] [place] Hemoglobin (Bld) [Mass/Vol] 11.8 g/dL Low 13.0-17.0 [facility] Comment on above: Order Comment: Speci men Type: BLOOD SPECIMENOrdering Facility: [facility] Address: [address] [place] [address] Performed By: #### 5 7021-8 ####[facility] [id number] [place] [address] [place] Immature granulocytes (Bld) [#/Vol] 0.05 10*3/uL Normal <0.10 [facility] Comment on above: Order Comment: Speci men Type: BLOOD SPECIMENOrdering Facility: [facility] Address: [address] [place] [address] Performed By: #### 5 7021-8 ####[facility] CENTERLIA [id number] [place] [address] [place] Immature granulocytes/100 WBC (Bld) 0.4 % Normal [facility] Comment on above: Order Comment: Speci men Type: BLOOD SPECIMENOrdering Facility: [facility] Address: [address] [place] [address] Performed By: #### 5 7021-8 ####[facility]PITALNCLI [id number] [place] [address] [place] Lymphocytes (Bld) [#/Vol] 0.49 10*3/uL Low 1.00-4.00 [facility] Comment on above: Order Comment: Speci men Type: BLOOD SPECIMENOrdering Facility: [facility] Address: [address] [place] [address] Performed By: #### 5 7021-8 ####[facility]ITALNCLIA [id number] [place] [address] [place] Lymphocytes/100 WBC (Bld) 4.0 % Normal [facility] Comment on above: Order Comment: Speci men Type: BLOOD SPECIMENOrdering Facility: [facility] Address: [address] [place] [address] Performed By: #### 5 7021-8 ####[facility]ITALNCAMER[facility] [id number] [place] [address] [place] MCH (RBC) [Entitic mass] 27.4 pg Normal 26.0-34.0 [facility] Comment on above: Order Comment: Speci men Type: BLOOD SPECIMENOrdering Facility: [facility] Address: [address] [place] [address] Performed By: #### 5 7021-8 ####[facility]ITALNCLI [id number] [place] [address] [place] MCHC (RBC) [Mass/Vol] 29.5 g/dL Low 30.5-36.0 [facility] Comment on above: Order Comment: Speci men Type: BLOOD SPECIMENOrdering Facility: [facility] Address: [address] [place] [address] Performed By: #### 5 7021-8 ####[facility]ITALNCLI [id number] [place] [address] [place] MCV (RBC) [Entitic vol] 92.8 fL Normal 80.0-100.0 [facility] Comment on above: Order Comment: Speci men Type: BLOOD SPECIMENOrdering Facility: [facility] Address: [address] [place] [address] Performed By: #### 5 7021-8 ####[facility] MISHEL GILDA [id number] [place] [address] [place] Monocytes (Bld) [#/Vol] 0.37 10*3/uL Normal <0.87 [facility] Comment on above: Order Comment: Speci men Type: BLOOD SPECIMENOrdering Facility: [facility] Address: [address] [place] [address] Performed By: #### 5 7021-8 ####[facility] [id number] [place] [address] [place] Monocytes/100 WBC (Bld) 3.0 % Normal [facility] Comment on above: Order Comment: Speci men Type: BLOOD SPECIMENOrdering Facility: [facility] Address: [address] [place] [address] Performed By: #### 5 7021-8 ####[facility] [id number] [place] [address] [place] Neutrophils (Bld) [#/Vol] 11.33 10*3/uL High 1.45-7.50 [facility] Comment on above: Order Comment: Speci men Type: BLOOD SPECIMENOrdering Facility: [facility] Address: [address] [place] [address] Performed By: #### 5 7021-8 ####[facility]ITALA [id number] [place] [address] [place] Neutrophils/100 WBC (Bld) 92.4 % Normal [facility] Comment on above: Order Comment: Speci men Type: BLOOD SPECIMENOrdering Facility: [facility] Address: [address] [place] [address] Performed By: #### 5 7021-8 ####[facility]ITALNCLIA [id number] [place] [address] [place] Nucleated RBC (Bld) [#/Vol] 10*3/uL Normal <0.01 [facility] Comment on above: Order Comment: Speci men Type: BLOOD SPECIMENOrdering Facility: [facility] Address: [address] [place] [address] Performed By: #### 5 7021-8 ####[facility] [id number] [place] [address] [place] Nucleated RBC/100 WBC (Bld) [Ratio] 0.0 /100 WBC Normal [facility] Comment on above: Order Comment: Speci men Type: BLOOD SPECIMENOrdering Facility: [facility] Address: [address] [place] [address] Performed By: #### 5 7021-8 ####[facility]ITALA [id number] [place] [address] [place] Platelet mean volume (Bld) [Entitic vol] 9.8 fL Normal 9.0-12.7 [facility] Comment on above: Order Comment: Speci men Type: BLOOD SPECIMENOrdering Facility: [facility] Address: [address] [place] [address] Performed By: #### 5 7021-8 ####[facility] [id number] [place] [address] [place] Platelets (Bld) [#/Vol] 171 10*3/uL Normal 150-400 [facility] Comment on above: Order Comment: Speci men Type: BLOOD SPECIMENOrdering Facility: [facility] Address: [address] [place] [address] Performed By: #### 5 7021-8 ####[facility]ITALNCAMER[facility] [id number] [place] [address] [place] RBC (Bld) [#/Vol] 4.31 10*6/uL Normal 4.20-6.00 [facility] Comment on above: Order Comment: Speci men Type: BLOOD SPECIMENOrdering Facility: [facility] Address: [address] [place] [address] Performed By: #### 5 7021-8 ####[facility]OSPITALNCA [id number] [place] [address] [place] WBC (Bld) [#/Vol] 12.26 10*3/uL High 3.70-11.00 [facility] Comment on above: Order Comment: Speci men Type: BLOOD SPECIMENOrdering Facility: [facility] Address: [address] [place] [address] Performed By: #### 5 7021-8 ####[facility]OSPITALNCA [id number] [place] [address] [place] CNOVon 12-08-2023 CNOV Normal [facility] CNOVon 12-07-2023 CNOV Normal [facility] CNPNon 11-25-2023 CNPN Normal [facility] Basic Metabolic Profile (BMP )on 11-23-2023 BUN Normal 7-18 [facility] Comment on above: Result Comment: Canc elled via OM: Order cancelled - Patient discharged Performed By: #### L 100.0100, L500.2500 ####[facility] [address] [place], [address] BUN/CRE Normal 10-20 [facility] Comment on above: Result Comment: Canc elled via OM: Order cancelled - Patient discharged Performed By: #### L 100.0100, L500.2500 ####[facility] [address] [place], [address] CA,Total Normal 8.5-10.1 [facility] Comment on above: Result Comment: Canc elled via OM: Order cancelled - Patient discharged Performed By: #### L 100.0100, L500.2500 ####[facility] [address] [place], [address] CL Normal 98-107 [facility] Comment on above: Result Comment: Canc elled via OM: Order cancelled - Patient discharged Performed By: #### L 100.0100, L500.2500 ####[facility] [address] [place], [address] CO2 Normal 21.0-32.0 [facility] Comment on above: Result Comment: Canc elled via OM: Order cancelled - Patient discharged Performed By: #### L 100.0100, L500.2500 ####[facility] [address] [place], [address] CREAT,SERUM Normal 0.70-1.30 [facility] Comment on above: Result Comment: Canc elled via OM: Order cancelled - Patient discharged Performed By: #### L 100.0100, L500.2500 ####[facility] [address] [place], [address] EST GFR Normal >60 [facility] Comment on above: Result Comment: Canc elled via OM: Order cancelled - Patient discharged Performed By: #### L 100.0100, L500.2500 ####[facility] [address] [place], [address] EST GFR - AA Normal >60 [facility] Comment on above: Result Comment: Canc elled via OM: Order cancelled - Patient discharged Performed By: #### L 100.0100, L500.2500 ####[facility] [address] [place], [address] GAP Normal 5-15 [facility] Comment on above: Result Comment: Canc elled via OM: Order cancelled - Patient discharged Performed By: #### L 100.0100, L500.2500 ####[facility] [address] [place], [address] GLU Normal 74-106 [facility] Comment on above: Result Comment: Canc elled via OM: Order cancelled - Patient discharged Performed By: #### L 100.0100, L500.2500 ####[facility] [address] [place], [address] Potassium Normal 3.5-5.1 [facility] Comment on above: Result Comment: Canc elled via OM: Order cancelled - Patient discharged Performed By: #### L 100.0100, L500.2500 ####[facility] [address] [place], [address] Basic Metabolic Profile (BMP) Normal 136-145 [facility] Comment on above: Result Comment: Canc elled via OM: Order cancelled - Patient discharged Performed By: #### L 100.0100, L500.2500 ####[facility] [address] [place], [address] CBC W/Diff, Automatedon 09-2 Absolute Neut Normal 2.0-7.7 [facility] Comment on above: Result Comment: Canc elled via OM: Order cancelled - Patient discharged Performed By: #### L 100.0100, L500.2500 ####[facility] [address] [place], [address] HCT Normal 40-54 [facility] Comment on above: Result Comment: Canc elled via OM: Order cancelled - Patient discharged Performed By: #### L 100.0100, L500.2500 ####[facility] [address] [place], [address] HGB Normal 13.0-16.5 [facility] Comment on above: Result Comment: Canc elled via OM: Order cancelled - Patient discharged Performed By: #### L 100.0100, L500.2500 ####[facility] [address] [place], [address] MCH Normal 27.0-32.0 [facility] Comment on above: Result Comment: Canc elled via OM: Order cancelled - Patient discharged Performed By: #### L 100.0100, L500.2500 ####[facility] [address] [place], [address] MCHC Normal 32-36 [facility] Comment on above: Result Comment: Canc elled via OM: Order cancelled - Patient discharged Performed By: #### L 100.0100, L500.2500 ####[facility] [address] [place], [address] MCV Normal 80-94 [facility] Comment on above: Result Comment: Canc elled via OM: Order cancelled - Patient discharged Performed By: #### L 100.0100, L500.2500 ####[facility] [address] [place], [address] NEUT% Normal 47-70 [facility] Comment on above: Result Comment: Canc elled via OM: Order cancelled - Patient discharged Performed By: #### L 100.0100, L500.2500 ####[facility] [address] [place], [address] PLT Normal 150-450 [facility] Comment on above: Result Comment: Canc elled via OM: Order cancelled - Patient discharged Performed By: #### L 100.0100, L500.2500 ####[facility] [address] [place], [address] RBC Normal 4.6-6.2 [facility] Comment on above: Result Comment: Canc elled via OM: Order cancelled - Patient discharged Performed By: #### L 100.0100, L500.2500 ####[facility] [address] [place], [address] RDW CV Normal 11.6-14.6 [facility] Comment on above: Result Comment: Canc elled via OM: Order cancelled - Patient discharged Performed By: #### L 100.0100, L500.2500 ####[facility] [address] [place], [address] RDW SD Normal 35.1-43.9 [facility] Comment on above: Result Comment: Canc elled via OM: Order cancelled - Patient discharged Performed By: #### L 100.0100, L500.2500 ####[facility] [address] [place], [address] WBC Normal 4.4-11.0 [facility] Comment on above: Result Comment: Canc elled via OM: Order cancelled - Patient discharged Performed By: #### L 100.0100, L500.2500 ####[facility] [address] [place], [address] CNOVon 11-23-2023 CNOV Normal [facility] XR ANKLE 3V AP/LAT/OBL LTon 11-23-2023 XR ANKLE 3V AP/LAT/OBL LT Normal [facility] CNPNon 11-22-2023 CNPN Normal [facility] CNOVon 11-19-2023 CNOV Normal [facility] Basic Metabolic Profile (BMP )on 11-16-2023 BUN Normal 7-18 [facility] Comment on above: Result Comment: Canc elled via OM: Order cancelled - Patient discharged Performed By: #### L 100.0100, L500.2500 ####[facility] [address] [place], [address] BUN/CRE Normal 10-20 [facility] Comment on above: Result Comment: Canc elled via OM: Order cancelled - Patient discharged Performed By: #### L 100.0100, L500.2500 ####[facility] [address] [place], [address] CA,Total Normal 8.5-10.1 [facility] Comment on above: Result Comment: Canc elled via OM: Order cancelled - Patient discharged Performed By: #### L 100.0100, L500.2500 ####[facility] [address] [place], [address] CL Normal 98-107 [facility] Comment on above: Result Comment: Canc elled via OM: Order cancelled - Patient discharged Performed By: #### L 100.0100, L500.2500 ####[facility] [address] [place], [address] CO2 Normal 21.0-32.0 [facility] Comment on above: Result Comment: Canc elled via OM: Order cancelled - Patient discharged Performed By: #### L 100.0100, L500.2500 ####[facility] [address] [place], [address] CREAT,SERUM Normal 0.70-1.30 [facility] Comment on above: Result Comment: Canc elled via OM: Order cancelled - Patient discharged Performed By: #### L 100.0100, L500.2500 ####[facility] [address] [place], [address] EST GFR Normal >60 [facility] Comment on above: Result Comment: Canc elled via OM: Order cancelled - Patient discharged Performed By: #### L 100.0100, L500.2500 ####[facility] [address] [place], [address] EST GFR - AA Normal >60 [facility] Comment on above: Result Comment: Canc elled via OM: Order cancelled - Patient discharged Performed By: #### L 100.0100, L500.2500 ####[facility] [address] [place], [address] GAP Normal 5-15 [facility] Comment on above: Result Comment: Canc elled via OM: Order cancelled - Patient discharged Performed By: #### L 100.0100, L500.2500 ####[facility] [address] [place], [address] GLU Normal 74-106 [facility] Comment on above: Result Comment: Canc elled via OM: Order cancelled - Patient discharged Performed By: #### L 100.0100, L500.2500 ####[facility] [address] [place], [address] Potassium Normal 3.5-5.1 [facility] Comment on above: Result Comment: Canc elled via OM: Order cancelled - Patient discharged Performed By: #### L 100.0100, L500.2500 ####[facility] [address] [place], [address] Basic Metabolic Profile (BMP) Normal 136-145 [facility] Comment on above: Result Comment: Canc elled via OM: Order cancelled - Patient discharged Performed By: #### L 100.0100, L500.2500 ####[facility] [address] [place], [address] CBC W/Diff, Automatedon - Absolute Neut Normal 2.0-7.7 [facility] Comment on above: Result Comment: Canc elled via OM: Order cancelled - Patient discharged Performed By: #### L 100.0100, L500.2500 ####[facility] [address] [place], [address] HCT Normal 40-54 [facility] Comment on above: Result Comment: Canc elled via OM: Order cancelled - Patient discharged Performed By: #### L 100.0100, L500.2500 ####[facility] [address] [place], [address] HGB Normal 13.0-16.5 [facility] Comment on above: Result Comment: Canc elled via OM: Order cancelled - Patient discharged Performed By: #### L 100.0100, L500.2500 ####[facility] [address] [place], [address] MCH Normal 27.0-32.0 [facility] Comment on above: Result Comment: Canc elled via OM: Order cancelled - Patient discharged Performed By: #### L 100.0100, L500.2500 ####[facility] [address] [place], [address] MCHC Normal 32-36 [facility] Comment on above: Result Comment: Canc elled via OM: Order cancelled - Patient discharged Performed By: #### L 100.0100, L500.2500 ####[facility] [address] [place], [address] MCV Normal 80-94 [facility] Comment on above: Result Comment: Canc elled via OM: Order cancelled - Patient discharged Performed By: #### L 100.0100, L500.2500 ####[facility] [address] [place], [address] NEUT% Normal 47-70 [facility] Comment on above: Result Comment: Canc elled via OM: Order cancelled - Patient discharged Performed By: #### L 100.0100, L500.2500 ####[facility] [address] [place], [address] PLT Normal 150-450 [facility] Comment on above: Result Comment: Canc elled via OM: Order cancelled - Patient discharged Performed By: #### L 100.0100, L500.2500 ####[facility] [address] [place], [address] RBC Normal 4.6-6.2 [facility] Comment on above: Result Comment: Canc elled via OM: Order cancelled - Patient discharged Performed By: #### L 100.0100, L500.2500 ####[facility] [address] [place], [address] RDW CV Normal 11.6-14.6 [facility] Comment on above: Result Comment: Canc elled via OM: Order cancelled - Patient discharged Performed By: #### L 100.0100, L500.2500 ####[facility] [address] [place], [address] RDW SD Normal 35.1-43.9 [facility] Comment on above: Result Comment: Canc elled via OM: Order cancelled - Patient discharged Performed By: #### L 100.0100, L500.2500 ####[facility] [address] [place], [address] WBC Normal 4.4-11.0 [facility] Comment on above: Result Comment: Canc elled via OM: Order cancelled - Patient discharged Performed By: #### L 100.0100, L500.2500 ####[facility] [address] [place], [address] CNPNon 11-16-2023 CNPN Normal [facility] CREATININE BLDon 11-13-2023 Creatinine [Mass/Vol] 0.61 mg/dL Low 0.73-1.22 [facility] Comment on above: Order Comment: Speci men Type: BLOOD SPECIMENOrdering Facility: [facility] Address: [address] [place] [address] Performed By: #### C RET1 ####[facility] [id number] [place] [address] [place] Creatinine and Glomerular filtration rate.predicted panel (S/P/Bld) 96 mL/min/1.73m??? Normal >=60 [facility] Comment on above: Order Comment: Speci men Type: BLOOD SPECIMENOrdering Facility: [facility] Address: [address] [place] [address] Result Comment: Karey mated Glomerular Filtration Rate (eGFR) is calculated using the 2020 CKD-EPI creatinine equation. This equation utilizes serum creatinine, sex, and age as parameters. The creatinine assay has traceable calibration to isotope dilution-mass spectrometry. Refer to KDIGO guidelines for clinical interpretation. In patients with unstable renal function, e.g. those with acute kidney injury, the eGFR may not accurately reflect actual GFR. Performed By: #### C RET1 ####[facility] [id number] [place], [place] [id number] [place] [address] [facility] CT CHEST W IVCONon CT CHEST W IVCON Normal [facility] CBC W/Diff, Automatedon 10-31 Absolute Lymph 0.34 X10 3/uL Low 0.83-4.51 [facility] Comment on above: Performed By: #### L 100.0100, L503.6030 ####[facility] [address] [place], [address] Absolute Neut 12.1 X10 3/uL High 2.0-7.7 [facility] Comment on above: Performed By: #### L 100.0100, L503.6030 ####[facility] [address] [place], [address] Basophils/100 WBC (Bld) 0.2 % Normal 0-1 [facility] Comment on above: Performed By: #### L 100.0100, L503.6030 ####[facility] [address] [place], [address] Eosinophils/100 WBC (Bld) 0.1 % Normal 0-5 [facility] Comment on above: Performed By: #### L 100.0100, L503.6030 ####[facility] [address] [place], [address] Erythrocyte distribution width (RBC) [Ratio] 15.8 % High 11.6-14.6 [facility] Comment on above: Performed By: #### L 100.0100, L503.6030 ####[facility] [address] [place], [address] Hematocrit (Bld) [Volume fraction] 35.7 % Low 40-54 [facility] Comment on above: Performed By: #### L 100.0100, L503.6030 ####[facility] [address] [place], [address] Hemoglobin (Bld) [Mass/Vol] 10.4 g/dL Low 13.0-16.5 [facility] Comment on above: Performed By: #### L 100.0100, L503.6030 ####[facility] [address] [place], [address] IG% 1.100 High 0.0-0.9 [facility] Comment on above: Result Comment: IG% - Immature Granulocytes (promyelocytes, myelocytes andmetamyelocytes) > 1% indicates that a LEFT SHIFT is Present. Performed By: #### L 100.0100, L503.6030 ####[facility] [address] [place], [address] Lymphocytes/100 WBC (Bld) 2.6 % Low 19-41 [facility] Comment on above: Performed By: #### L 100.0100, L503.6030 ####[facility] [address] [place], [address] MCH (RBC) [Entitic mass] 26.7 pg Low 27.0-32.0 [facility] Comment on above: Performed By: #### L 100.0100, L503.6030 ####[facility] [address] [place], [address] MCHC (RBC) [Mass/Vol] 29.1 g/dL Low 32-36 [facility] Comment on above: Performed By: #### L 100.0100, L503.6030 ####[facility] [address] [place], [address] MCV (RBC) [Entitic vol] 91.8 fL Normal 80-94 [facility] Comment on above: Performed By: #### L 100.0100, L503.6030 ####[facility] [address] [place], [address] Monocytes/100 WBC (Bld) 3.0 % Normal 0-10 [facility] Comment on above: Performed By: #### L 100.0100, L503.6030 ####[facility] [address] [place], [address] Neutrophils/100 WBC (Bld) 93.0 % High 47-70 [facility] Comment on above: Performed By: #### L 100.0100, L503.6030 ####[facility] [address] [place], [address] Nucleated RBC (Bld) [#/Vol] 0.2 10*3/uL Normal 0-5 [facility] Comment on above: Performed By: #### L 100.0100, L503.6030 ####[facility] [address] [place], [address] Platelet mean volume (Bld) [Entitic vol] 8.6 fL Normal 6.2-12.0 [facility] Comment on above: Performed By: #### L 100.0100, L503.6030 ####[facility] [address] [place], [address] Platelets (Bld) [#/Vol] 270 10*3/uL Normal 150-450 [facility] Comment on above: Performed By: #### L 100.0100, L503.6030 ####[facility] [address] [place], [address] RBC (Bld) [#/Vol] 3.89 10*6/uL Low 4.6-6.2 [facility] Comment on above: Performed By: #### L 100.0100, L503.6030 ####[facility] [address] [place], [address] RDW SD 53.2 fl High 35.1-43.9 [facility] Comment on above: Performed By: #### L 100.0100, L503.6030 ####[facility] [address] [place], [address] WBC (Bld) [#/Vol] 13.1 10*3/uL High 4.4-11.0 [facility] Comment on above: Performed By: #### L 100.0100, L503.6030 ####[facility] [address] [place], [address] Gastroenterology Visit Repor ton 11-11-2023 Gastroenterology Visit Report Normal [facility] Iron+Iron Binding Capacityon 11-11-2023 Iron [Mass/Vol] 29 ug/dL Low 65-175 [facility] Comment on above: Performed By: #### L 100.0100, L503.6030 ####[facility] [address] [place], [address] IRON SATURATION 12.4 Low 15.0-55.0 [facility] Comment on above: Performed By: #### L 100.0100, L503.6030 ####[facility] [address] [place], [address] TIBC 234 ug/dL Low 250-450 [facility] Comment on above: Performed By: #### L 100.0100, L503.6030 ####[facility] [address] [place], [address] Basic Metabolic Profile (BMP )on 11-09-2023 BUN Normal 7-18 [facility] Comment on above: Result Comment: Canc elled via OM: Order cancelled - Patient discharged Performed By: #### L 500.2500, L100.0100 ####[facility] [address] [place], [address] BUN/CRE Normal 10-20 [facility] Comment on above: Result Comment: Canc elled via OM: Order cancelled - Patient discharged Performed By: #### L 500.2500, L100.0100 ####[facility] [address] [place], [address] CA,Total Normal 8.5-10.1 [facility] Comment on above: Result Comment: Canc elled via OM: Order cancelled - Patient discharged Performed By: #### L 500.2500, L100.0100 ####[facility] [address] [place], [address] CL Normal 98-107 [facility] Comment on above: Result Comment: Canc elled via OM: Order cancelled - Patient discharged Performed By: #### L 500.2500, L100.0100 ####[facility] [address] [place], [address] CO2 Normal 21.0-32.0 [facility] Comment on above: Result Comment: Canc elled via OM: Order cancelled - Patient discharged Performed By: #### L 500.2500, L100.0100 ####[facility] [address] [place], [address] CREAT,SERUM Normal 0.70-1.30 [facility] Comment on above: Result Comment: Canc elled via OM: Order cancelled - Patient discharged Performed By: #### L 500.2500, L100.0100 ####[facility] [address] [place], [address] EST GFR Normal >60 [facility] Comment on above: Result Comment: Canc elled via OM: Order cancelled - Patient discharged Performed By: #### L 500.2500, L100.0100 ####[facility] [address] [place], [address] EST GFR - AA Normal >60 [facility] Comment on above: Result Comment: Canc elled via OM: Order cancelled - Patient discharged Performed By: #### L 500.2500, L100.0100 ####[facility] [address] [place], [address] GAP Normal 5-15 [facility] Comment on above: Result Comment: Canc elled via OM: Order cancelled - Patient discharged Performed By: #### L 500.2500, L100.0100 ####[facility] [address] [place], [address] GLU Normal 74-106 [facility] Comment on above: Result Comment: Canc elled via OM: Order cancelled - Patient discharged Performed By: #### L 500.2500, L100.0100 ####[facility] [address] [place], [address] Potassium Normal 3.5-5.1 [facility] Comment on above: Result Comment: Canc elled via OM: Order cancelled - Patient discharged Performed By: #### L 500.2500, L100.0100 ####[facility] [address] [place], [address] Basic Metabolic Profile (BMP) Normal 136-145 [facility] Comment on above: Result Comment: Canc elled via OM: Order cancelled - Patient discharged Performed By: #### L 500.2500, L100.0100 ####[facility] [address] [place], [address] CBC W/Diff, Automatedon 09-0 Absolute Neut Normal 2.0-7.7 [facility] Comment on above: Result Comment: Canc elled via OM: Order cancelled - Patient discharged Performed By: #### L 500.2500, L100.0100 ####[facility] [address] [place], [address] HCT Normal 40-54 [facility] Comment on above: Result Comment: Canc elled via OM: Order cancelled - Patient discharged Performed By: #### L 500.2500, L100.0100 ####[facility] [address] [place], [address] HGB Normal 13.0-16.5 [facility] Comment on above: Result Comment: Canc elled via OM: Order cancelled - Patient discharged Performed By: #### L 500.2500, L100.0100 ####[facility] [address] [place], [address] MCH Normal 27.0-32.0 [facility] Comment on above: Result Comment: Canc elled via OM: Order cancelled - Patient discharged Performed By: #### L 500.2500, L100.0100 ####[facility] [address] [place], [address] MCHC Normal 32-36 [facility] Comment on above: Result Comment: Canc elled via OM: Order cancelled - Patient discharged Performed By: #### L 500.2500, L100.0100 ####[facility] [address] [place], [address] MCV Normal 80-94 [facility] Comment on above: Result Comment: Canc elled via OM: Order cancelled - Patient discharged Performed By: #### L 500.2500, L100.0100 ####[facility] [address] [place], [address] NEUT% Normal 47-70 [facility] Comment on above: Result Comment: Canc elled via OM: Order cancelled - Patient discharged Performed By: #### L 500.2500, L100.0100 ####[facility] [address] [place], [address] PLT Normal 150-450 [facility] Comment on above: Result Comment: Canc elled via OM: Order cancelled - Patient discharged Performed By: #### L 500.2500, L100.0100 ####[facility] [address] [place], [address] RBC Normal 4.6-6.2 [facility] Comment on above: Result Comment: Canc elled via OM: Order cancelled - Patient discharged Performed By: #### L 500.2500, L100.0100 ####[facility] [address] [place], [address] RDW CV Normal 11.6-14.6 [facility] Comment on above: Result Comment: Canc elled via OM: Order cancelled - Patient discharged Performed By: #### L 500.2500, L100.0100 ####[facility] [address] [place], [address] RDW SD Normal 35.1-43.9 [facility] Comment on above: Result Comment: Canc elled via OM: Order cancelled - Patient discharged Performed By: #### L 500.2500, L100.0100 ####[facility] [address] [place], [address] WBC Normal 4.4-11.0 [facility] Comment on above: Result Comment: Canc elled via OM: Order cancelled - Patient discharged Performed By: #### L 500.2500, L100.0100 ####[facility] [address] [place], [address] CNPNon 11-04-2023 CNPN Normal [facility] CNPNon 11-03-2023 CNPN Normal [facility] Basic Metabolic Profile (BMP )on 11-02-2023 BUN Normal 7-18 [facility] Comment on above: Result Comment: Canc elled via OM: Order cancelled - Patient discharged Performed By: #### L 100.0100, L500.2500 ####[facility] [address] [place], [address] BUN/CRE Normal 10-20 [facility] Comment on above: Result Comment: Canc elled via OM: Order cancelled - Patient discharged Performed By: #### L 100.0100, L500.2500 ####[facility] [address] [place], [address] CA,Total Normal 8.5-10.1 [facility] Comment on above: Result Comment: Canc elled via OM: Order cancelled - Patient discharged Performed By: #### L 100.0100, L500.2500 ####[facility] [address] [place], [address] CL Normal 98-107 [facility] Comment on above: Result Comment: Canc elled via OM: Order cancelled - Patient discharged Performed By: #### L 100.0100, L500.2500 ####[facility] [address] [place], [address] CO2 Normal 21.0-32.0 [facility] Comment on above: Result Comment: Canc elled via OM: Order cancelled - Patient discharged Performed By: #### L 100.0100, L500.2500 ####[facility] [address] [place], [address] CREAT,SERUM Normal 0.70-1.30 [facility] Comment on above: Result Comment: Canc elled via OM: Order cancelled - Patient discharged Performed By: #### L 100.0100, L500.2500 ####[facility] [address] [place], [address] EST GFR Normal >60 [facility] Comment on above: Result Comment: Canc elled via OM: Order cancelled - Patient discharged Performed By: #### L 100.0100, L500.2500 ####[facility] [address] [place], [address] EST GFR - AA Normal >60 [facility] Comment on above: Result Comment: Canc elled via OM: Order cancelled - Patient discharged Performed By: #### L 100.0100, L500.2500 ####[facility] [address] [place], [address] GAP Normal 5-15 [facility] Comment on above: Result Comment: Canc elled via OM: Order cancelled - Patient discharged Performed By: #### L 100.0100, L500.2500 ####[facility] [address] [place], [address] GLU Normal 74-106 [facility] Comment on above: Result Comment: Canc elled via OM: Order cancelled - Patient discharged Performed By: #### L 100.0100, L500.2500 ####[facility] [address] [place], [address] Potassium Normal 3.5-5.1 [facility] Comment on above: Result Comment: Canc elled via OM: Order cancelled - Patient discharged Performed By: #### L 100.0100, L500.2500 ####[facility] [address] [place], [address] Basic Metabolic Profile (BMP) Normal 136-145 [facility] Comment on above: Result Comment: Canc elled via OM: Order cancelled - Patient discharged Performed By: #### L 100.0100, L500.2500 ####[facility] [address] [place], [address] CBC W/Diff, Automatedon 09-0 2-2023 Absolute Neut Normal 2.0-7.7 [facility] Comment on above: Result Comment: Canc elled via OM: Order cancelled - Patient discharged Performed By: #### L 100.0100, L500.2500 ####[facility] [address] [place], [address] HCT Normal 40-54 [facility] Comment on above: Result Comment: Canc elled via OM: Order cancelled - Patient discharged Performed By: #### L 100.0100, L500.2500 ####[facility] [address] [place], [address] HGB Normal 13.0-16.5 [facility] Comment on above: Result Comment: Canc elled via OM: Order cancelled - Patient discharged Performed By: #### L 100.0100, L500.2500 ####[facility] [address] [place], [address] MCH Normal 27.0-32.0 [facility] Comment on above: Result Comment: Canc elled via OM: Order cancelled - Patient discharged Performed By: #### L 100.0100, L500.2500 ####[facility] [address] [place], [address] MCHC Normal 32-36 [facility] Comment on above: Result Comment: Canc elled via OM: Order cancelled - Patient discharged Performed By: #### L 100.0100, L500.2500 ####[facility] [address] [place], [address] MCV Normal 80-94 [facility] Comment on above: Result Comment: Canc elled via OM: Order cancelled - Patient discharged Performed By: #### L 100.0100, L500.2500 ####[facility] [address] [place], [address] NEUT% Normal 47-70 [facility] Comment on above: Result Comment: Canc elled via OM: Order cancelled - Patient discharged Performed By: #### L 100.0100, L500.2500 ####[facility] [address] [place], [address] PLT Normal 150-450 [facility] Comment on above: Result Comment: Canc elled via OM: Order cancelled - Patient discharged Performed By: #### L 100.0100, L500.2500 ####[facility] [address] [place], [address] RBC Normal 4.6-6.2 [facility] Comment on above: Result Comment: Canc elled via OM: Order cancelled - Patient discharged Performed By: #### L 100.0100, L500.2500 ####[facility] [address] [place], [address] RDW CV Normal 11.6-14.6 [facility] Comment on above: Result Comment: Canc elled via OM: Order cancelled - Patient discharged Performed By: #### L 100.0100, L500.2500 ####[facility] [address] [place], [address] RDW SD Normal 35.1-43.9 [facility] Comment on above: Result Comment: Canc elled via OM: Order cancelled - Patient discharged Performed By: #### L 100.0100, L500.2500 ####[facility] [address] [place], [address] WBC Normal 4.4-11.0 [facility] Comment on above: Result Comment: Canc elled via OM: Order cancelled - Patient discharged Performed By: #### L 100.0100, L500.2500 ####[facility] [address] [place], [address] CNOVon 10-29-2023 CNOV Normal [facility] CNPNon 10-29-2023 CNPN Normal [facility] CNPNon 10-28-2023 CNPN Normal [facility] CNPNon 10-27-2023 CNPN Normal [facility] Basic Metabolic Profile (BMP )on 10-26-2023 BUN Normal 7-18 [facility] Comment on above: Result Comment: Canc elled via OM: Order cancelled - Patient discharged Performed By: #### L 500.2500, L100.0100 ####[facility] [address] [place], [address] BUN/CRE Normal 10-20 [facility] Comment on above: Result Comment: Canc elled via OM: Order cancelled - Patient discharged Performed By: #### L 500.2500, L100.0100 ####[facility] [address] [place], [address] CA,Total Normal 8.5-10.1 [facility] Comment on above: Result Comment: Canc elled via OM: Order cancelled - Patient discharged Performed By: #### L 500.2500, L100.0100 ####[facility] [address] [place], [address] CL Normal 98-107 [facility] Comment on above: Result Comment: Canc elled via OM: Order cancelled - Patient discharged Performed By: #### L 500.2500, L100.0100 ####[facility] [address] [place], [address] CO2 Normal 21.0-32.0 [facility] Comment on above: Result Comment: Canc elled via OM: Order cancelled - Patient discharged Performed By: #### L 500.2500, L100.0100 ####[facility] [address] [place], [address] CREAT,SERUM Normal 0.70-1.30 [facility] Comment on above: Result Comment: Canc elled via OM: Order cancelled - Patient discharged Performed By: #### L 500.2500, L100.0100 ####[facility] [address] [place], [address] EST GFR Normal >60 [facility] Comment on above: Result Comment: Canc elled via OM: Order cancelled - Patient discharged Performed By: #### L 500.2500, L100.0100 ####[facility] [address] [place], [address] EST GFR - AA Normal >60 [facility] Comment on above: Result Comment: Canc elled via OM: Order cancelled - Patient discharged Performed By: #### L 500.2500, L100.0100 ####[facility] [address] [place], [address] GAP Normal 5-15 [facility] Comment on above: Result Comment: Canc elled via OM: Order cancelled - Patient discharged Performed By: #### L 500.2500, L100.0100 ####[facility] [facility] [address] [place], [address] GLU Normal 74-106 [facility] Comment on above: Result Comment: Canc elled via OM: Order cancelled - Patient discharged Performed By: #### L 500.2500, L100.0100 ####[facility] [address] [place], [address] Potassium Normal 3.5-5.1 [facility] Comment on above: Result Comment: Canc elled via OM: Order cancelled - Patient discharged Performed By: #### L 500.2500, L100.0100 ####[facility] [address] [place], [address] Basic Metabolic Profile (BMP) Normal 136-145 [facility] Comment on above: Result Comment: Canc elled via OM: Order cancelled - Patient discharged Performed By: #### L 500.2500, L100.0100 ####[facility] [address] [place], [address] CBC W/Diff, Automatedon 08-2 Absolute Neut Normal 2.0-7.7 [facility] Comment on above: Result Comment: Canc elled via OM: Order cancelled - Patient discharged Performed By: #### L 500.2500, L100.0100 ####[facility] [address] [place], [address] HCT Normal 40-54 [facility] Comment on above: Result Comment: Canc elled via OM: Order cancelled - Patient discharged Performed By: #### L 500.2500, L100.0100 ####[facility] [address] [place], [address] HGB Normal 13.0-16.5 [facility] Comment on above: Result Comment: Canc elled via OM: Order cancelled - Patient discharged Performed By: #### L 500.2500, L100.0100 ####[facility] [address] [place], [address] MCH Normal 27.0-32.0 [facility] Comment on above: Result Comment: Canc elled via OM: Order cancelled - Patient discharged Performed By: #### L 500.2500, L100.0100 ####[facility] [address] [place], [address] MCHC Normal 32-36 [facility] Comment on above: Result Comment: Canc elled via OM: Order cancelled - Patient discharged Performed By: #### L 500.2500, L100.0100 ####[facility] [address] [place], [address] MCV Normal 80-94 [facility] Comment on above: Result Comment: Canc elled via OM: Order cancelled - Patient discharged Performed By: #### L 500.2500, L100.0100 ####[facility] [address] [place], [address] NEUT% Normal 47-70 [facility] Comment on above: Result Comment: Canc elled via OM: Order cancelled - Patient discharged Performed By: #### L 500.2500, L100.0100 ####[facility] [address] [place], [address] PLT Normal 150-450 [facility] Comment on above: Result Comment: Canc elled via OM: Order cancelled - Patient discharged Performed By: #### L 500.2500, L100.0100 ####[facility] [address] [place], [address] RBC Normal 4.6-6.2 [facility] Comment on above: Result Comment: Canc elled via OM: Order cancelled - Patient discharged Performed By: #### L 500.2500, L100.0100 ####[facility] [address] [place], [address] RDW CV Normal 11.6-14.6 [facility] Comment on above: Result Comment: Canc elled via OM: Order cancelled - Patient discharged Performed By: #### L 500.2500, L100.0100 ####[facility] [address] [place], [address] RDW SD Normal 35.1-43.9 [facility] Comment on above: Result Comment: Canc elled via OM: Order cancelled - Patient discharged Performed By: #### L 500.2500, L100.0100 ####[facility] [address] [place], [address] WBC Normal 4.4-11.0 [facility] Comment on above: Result Comment: Canc elled via OM: Order cancelled - Patient discharged Performed By: #### L 500.2500, L100.0100 ####[facility] [address] [place], [address] CNPNon 10-26-2023 CNPN Normal [facility] CNPNon 10-23-2023 CNPN Normal [facility] COVID 19 AG RAPID (GILMAR Cai)on 10-22-2023 SARS-CoV-2 (COVID-19) RNA DORYS+probe Ql (Unsp spec) Normal [facility] Comment on above: Performed By: #### M 100.505 ####[facility] [address] [place], [address] Lipid Profileon 10-20-2023 Cholesterol [Mass/Vol] 122 mg/dL Normal 200 [facility] Comment on above: Result Comment: <200 mg/dL Desirable 200-240 mg/dL Borderline >240 mg/dL High Risk Performed By: #### L 500.4100 ####[facility] [address] [place], [address] Cholesterol in HDL [Mass/Vol] 51 mg/dL Normal [facility] Comment on above: Result Comment: The drugs N-Acetylcysteine and Metamizole may falselydepress this assay. Reference Range HDL <40 mg/dL Low HDL Cholesterol HDL >or= 60 mg/dL High HDL Cholesterol Performed By: #### L 500.4100 ####[facility] [address] [place], [address] Cholesterol in LDL [Mass/Vol] 60 mg/dL Normal 0-130 [facility] Comment on above: Performed By: #### L 500.4100 ####[facility] [address] [place], [address] Cholesterol in VLDL [Mass/Vol] 11 mg/dL Normal 5-40 [facility] Comment on above: Performed By: #### L 500.4100 ####[facility] [address] [place], [address] Triglyceride [Mass/Vol] 54 mg/dL Normal [facility] Comment on above: Result Comment: The drugs N-Acetylcysteine and Metamizole may falselydepress this assay.Serum Triglycerides Reference Interval Normal <150 mg/dL Borderline high 150 - 199 mg/dL High 200 - 499 mg/dL Very High > or = 500 mg/dL Performed By: #### L 500.4100 ####[facility] [address] [place], [address] Abdomen Single Viewon 2023 Abdomen Single View Normal [facility] Basic Metabolic Profile (BMP )on 10-18-2023 BUN/CRE 34.3 RATIO High 10-20 [facility] Comment on above: Performed By: #### L 500.2500, L100.0100 ####[facility] [address] [place], [address] CA,Total 8.0 mg/dL Low 8.5-10.1 [facility] Comment on above: Performed By: #### L 500.2500, L100.0100 ####[facility] [address] [place], [address] Chloride [Moles/Vol] 107 mmol/L Normal 98-107 [facility] Comment on above: Performed By: #### L 500.2500, L100.0100 ####[facility] [address] [place], [address] CO2 [Moles/Vol] 29.0 mmol/L Normal 21.0-32.0 [facility] Comment on above: Performed By: #### L 500.2500, L100.0100 ####[facility] [address] [place], [address] Creatinine [Mass/Vol] 0.67 mg/dL Low 0.70-1.30 [facility] Comment on above: Result Comment: The validity of the calculated GFR GFRAA in patients over70 years has not been determined. Clinical correlation isessential. Performed By: #### L 500.2500, L100.0100 ####[facility] [address] [place], [address] ECRCL 77.13 ml/min Normal [facility] Comment on above: Performed By: #### L 500.2500, L100.0100 ####[facility] [address] [place], [address] EST GFR - AA 146 mL/min Normal >60 [facility] Comment on above: Result Comment: Afri can Wallisian GFR Calc Performed By: #### L 500.2500, L100.0100 ####[facility] [address] [place], [address] GAP 5 Normal 5-15 [facility] Comment on above: Performed By: #### L 500.2500, L100.0100 ####[facility] [address] [place], [address] GFR/1.73 sq M.predicted among non-blacks MDRD (S/P/Bld) [Vol rate/Area] 121 mL/min/{1.73_m2} Normal >60 [facility] Comment on above: Result Comment: Non- GFR Calc Performed By: #### L 500.2500, L100.0100 ####[facility] [address] [place], [address] Glucose [Mass/Vol] 107 mg/dL High 74-106 [facility] Comment on above: Result Comment: Fast ing Glucose result from 100 to 125 mg/dLsuggests IMPAIRED HOMEOSTASIS per A.D.A. criteria. Performed By: #### L 500.2500, L100.0100 ####[facility] [address] [place], [address] Potassium [Moles/Vol] 3.9 mmol/L Normal 3.5-5.1 [facility] Comment on above: Performed By: #### L 500.2500, L100.0100 ####[facility] [address] [place], [address] Sodium [Moles/Vol] 141 mmol/L Normal 136-145 [facility] Comment on above: Performed By: #### L 500.2500, L100.0100 ####[facility] [address] [place], [address] Urea nitrogen [Mass/Vol] 23 mg/dL High 7-18 [facility] Comment on above: Performed By: #### L 500.2500, L100.0100 ####[facility] [address] [place], [address] CBC W/Diff, Automatedon 09-30 Absolute Lymph 0.42 X10 3/uL Low 0.83-4.51 [facility] Comment on above: Performed By: #### L 500.2500, L100.0100 ####[facility] [address] [place], [address] Absolute Neut 6.3 X10 3/uL Normal 2.0-7.7 [facility] Comment on above: Performed By: #### L 500.2500, L100.0100 ####[facility] [address] [place], [address] Basophils/100 WBC (Bld) 0.0 % Normal 0-1 [facility] Comment on above: Performed By: #### L 500.2500, L100.0100 ####[facility] [address] [place], [address] Eosinophils/100 WBC (Bld) 0.0 % Normal 0-5 [facility] Comment on above: Performed By: #### L 500.2500, L100.0100 ####[facility] [address] [place], [address] Erythrocyte distribution width (RBC) [Ratio] 16.0 % High 11.6-14.6 [facility] Comment on above: Performed By: #### L 500.2500, L100.0100 ####[facility] [address] [place], [address] Hematocrit (Bld) [Volume fraction] 31.2 % Low 40-54 [facility] Comment on above: Performed By: #### L 500.2500, L100.0100 ####[facility] [address] [place], [address] Hemoglobin (Bld) [Mass/Vol] 9.4 g/dL Low 13.0-16.5 [facility] Comment on above: Performed By: #### L 500.2500, L100.0100 ####[facility] [address] [place], [address] IG% 1.000 High 0.0-0.9 [facility] Comment on above: Result Comment: IG% - Immature Granulocytes (promyelocytes, myelocytes andmetamyelocytes) > 1% indicates that a LEFT SHIFT is Present. Performed By: #### L 500.2500, L100.0100 ####[facility] [address] [place], [address] Lymphocytes/100 WBC (Bld) 5.9 % Low 19-41 [facility] Comment on above: Performed By: #### L 500.2500, L100.0100 ####[facility] [address] [place], [address] MCH (RBC) [Entitic mass] 27.6 pg Normal 27.0-32.0 [facility] Comment on above: Performed By: #### L 500.2500, L100.0100 ####[facility] [address] [place], [address] MCHC (RBC) [Mass/Vol] 30.1 g/dL Low 32-36 [facility] Comment on above: Performed By: #### L 500.2500, L100.0100 ####[facility] [address] [place], [address] MCV (RBC) [Entitic vol] 91.5 fL Normal 80-94 [facility] Comment on above: Performed By: #### L 500.2500, L100.0100 ####[facility] [address] [place], [address] Monocytes/100 WBC (Bld) 4.4 % Normal 0-10 [facility] Comment on above: Performed By: #### L 500.2500, L100.0100 ####[facility] [address] [place], [address] Neutrophils/100 WBC (Bld) 88.7 % High 47-70 [facility] Comment on above: Performed By: #### L 500.2500, L100.0100 ####[facility] [address] [place], [address] Nucleated RBC (Bld) [#/Vol] 0.8 10*3/uL Normal 0-5 [facility] Comment on above: Performed By: #### L 500.2500, L100.0100 ####[facility] [address] [place], [address] Platelet mean volume (Bld) [Entitic vol] 9.5 fL Normal 6.2-12.0 [facility] Comment on above: Performed By: #### L 500.2500, L100.0100 ####[facility] [address] [place], [address] Platelets (Bld) [#/Vol] 233 10*3/uL Normal 150-450 [facility] Comment on above: Performed By: #### L 500.2500, L100.0100 ####[facility] [address] [place], [address] RBC (Bld) [#/Vol] 3.41 10*6/uL Low 4.6-6.2 [facility] Comment on above: Performed By: #### L 500.2500, L100.0100 ####[facility] [address] [place], [address] RDW SD 52.6 fl High 35.1-43.9 [facility] Comment on above: Performed By: #### L 500.2500, L100.0100 ####[facility] [address] [place], [address] WBC (Bld) [#/Vol] 7.1 10*3/uL Normal 4.4-11.0 [facility] Comment on above: Performed By: #### L 500.2500, L100.0100 ####[facility] [address] [place], [address] Respiratory Cultureon 2023 RESPC Normal [facility] Comment on above: Performed By: #### M 100.2000, M100.2400 ####[facility] [address] [place], [address] Basic Metabolic Profile (BMP )on 10-17-2023 BUN/CRE 31.4 RATIO High 10-20 [facility] Comment on above: Performed By: #### L 500.2500, L100.0500 ####[facility] [address] [place], [address] CA,Total 8.2 mg/dL Low 8.5-10.1 [facility] Comment on above: Performed By: #### L 500.2500, L100.0500 ####[facility] [address] [place], [address] Chloride [Moles/Vol] 108 mmol/L High 98-107 [facility] Comment on above: Performed By: #### L 500.2500, L100.0500 ####[facility] [address] [place], [address] CO2 [Moles/Vol] 32.0 mmol/L Normal 21.0-32.0 [facility] Comment on above: Performed By: #### L 500.2500, L100.0500 ####[facility] [address] [place], [address] Creatinine [Mass/Vol] 0.70 mg/dL Normal 0.70-1.30 [facility] Comment on above: Result Comment: The validity of the calculated GFR GFRAA in patients over70 years has not been determined. Clinical correlation isessential. Performed By: #### L 500.2500, L100.0500 ####[facility] [address] [place], [address] ECRCL 77.13 ml/min Normal [facility] Comment on above: Performed By: #### L 500.2500, L100.0500 ####[facility] [address] [place], [address] EST GFR - AA 139 mL/min Normal >60 [facility] Comment on above: Result Comment: Afri can Wallis[place] GFR Calc Performed By: #### L 500.2500, L100.0500 ####[facility] [address] [place], [address] GAP 1 Low 5-15 [facility] Comment on above: Performed By: #### L 500.2500, L100.0500 ####[facility] [address] [place], [address] GFR/1.73 sq M.predicted among non-blacks MDRD (S/P/Bld) [Vol rate/Area] 115 mL/min/{1.73_m2} Normal >60 [facility] Comment on above: Result Comment: Non- GFR Calc Performed By: #### L 500.2500, L100.0500 ####[facility] [address] [place], [address] Glucose [Mass/Vol] 117 mg/dL High 74-106 [facility] Comment on above: Result Comment: Fast ing Glucose result from 100 to 125 mg/dLsuggests IMPAIRED HOMEOSTASIS per A.D.A. criteria. Performed By: #### L 500.2500, L100.0500 ####[facility] [address] [place], [address] Potassium [Moles/Vol] 3.9 mmol/L Normal 3.5-5.1 [facility] Comment on above: Performed By: #### L 500.2500, L100.0500 ####[facility] [address] [place], [address] Sodium [Moles/Vol] 141 mmol/L Normal 136-145 [facility] Comment on above: Performed By: #### L 500.2500, L100.0500 ####[facility] [address] [place], [address] Urea nitrogen [Mass/Vol] 22 mg/dL High 7-18 [facility] Comment on above: Performed By: #### L 500.2500, L100.0500 ####[facility] [address] [place], [address] CBC-Complete Blood Cnt No Di ffon 10-17-2023 Erythrocyte distribution width (RBC) [Ratio] 16.1 % High 11.6-14.6 [facility] Comment on above: Performed By: #### L 500.2500, L100.0500 ####[facility] [address] [place], [address] Hematocrit (Bld) [Volume fraction] 28.6 % Low 40-54 [facility] Comment on above: Performed By: #### L 500.2500, L100.0500 ####[facility] [address] [place], [address] Hemoglobin (Bld) [Mass/Vol] 8.5 g/dL Low 13.0-16.5 [facility] Comment on above: Performed By: #### L 500.2500, L100.0500 ####[facility] [address] [place], [address] MCH (RBC) [Entitic mass] 27.2 pg Normal 27.0-32.0 [facility] Comment on above: Performed By: #### L 500.2500, L100.0500 ####[facility] [address] [place], [address] MCHC (RBC) [Mass/Vol] 29.7 g/dL Low 32-36 [facility] Comment on above: Performed By: #### L 500.2500, L100.0500 ####[facility] [address] [place], [address] MCV (RBC) [Entitic vol] 91.7 fL Normal 80-94 [facility] Comment on above: Performed By: #### L 500.2500, L100.0500 ####[facility] [address] [place], [address] Platelet mean volume (Bld) [Entitic vol] 9.7 fL Normal 6.2-12.0 [facility] Comment on above: Performed By: #### L 500.2500, L100.0500 ####[facility] [address] [place], [address] Platelets (Bld) [#/Vol] 246 10*3/uL Normal 150-450 [facility] Comment on above: Performed By: #### L 500.2500, L100.0500 ####[facility] [address] [place], [address] RBC (Bld) [#/Vol] 3.12 10*6/uL Low 4.6-6.2 [facility] Comment on above: Performed By: #### L 500.2500, L100.0500 ####[facility] [address] [place], [address] RDW SD 53.2 fl High 35.1-43.9 [facility] Comment on above: Performed By: #### L 500.2500, L100.0500 ####[facility] [address] [place], [address] WBC (Bld) [#/Vol] 7.7 10*3/uL Normal 4.4-11.0 [facility] Comment on above: Performed By: #### L 500.2500, L100.0500 ####[facility] [address] [place], [address] Basic Metabolic Profile (BMP )on 10-16-2023 BUN/CRE 35.1 RATIO High 10-20 [facility] Comment on above: Performed By: #### L 100.0100, L500.2500 ####[facility] [address] [place], [address] CA,Total 7.9 mg/dL Low 8.5-10.1 [facility] Comment on above: Performed By: #### L 100.0100, L500.2500 ####[facility] [address] [place], [address] Chloride [Moles/Vol] 107 mmol/L Normal 98-107 [facility] Comment on above: Performed By: #### L 100.0100, L500.2500 ####[facility] [address] [place], [address] CO2 [Moles/Vol] 32.0 mmol/L Normal 21.0-32.0 [facility] Comment on above: Performed By: #### L 100.0100, L500.2500 ####[facility] [address] [place], [address] Creatinine [Mass/Vol] 0.66 mg/dL Low 0.70-1.30 [facility] Comment on above: Result Comment: The validity of the calculated GFR GFRAA in patients over70 years has not been determined. Clinical correlation isessential. Performed By: #### L 100.0100, L500.2500 ####[facility] [address] [place], [address] ECRCL 77.13 ml/min Normal [facility] Comment on above: Performed By: #### L 100.0100, L500.2500 ####[facility] [address] [place], [address] EST GFR - AA 150 mL/min Normal >60 [facility] Comment on above: Result Comment: Afri can [place] GFR Calc Performed By: #### L 100.0100, L500.2500 ####[facility] [address] [place], [address] GAP 3 Low 5-15 [facility] Comment on above: Performed By: #### L 100.0100, L500.2500 ####[facility] [address] [place], [address] GFR/1.73 sq M.predicted among non-blacks MDRD (S/P/Bld) [Vol rate/Area] 124 mL/min/{1.73_m2} Normal >60 [facility] Comment on above: Result Comment: Non- GFR Calc Performed By: #### L 100.0100, L500.2500 ####[facility] [address] [place], [address] Glucose [Mass/Vol] 145 mg/dL High 74-106 [facility] Comment on above: Result Comment: Fast ing Glucose result greater than or equal to 126 mg/dLsuggests DIABETES MELLITUS per A.D.A. criteria. Performed By: #### L 100.0100, L500.2500 ####[facility] [address] [place], [address] Potassium [Moles/Vol] 3.9 mmol/L Normal 3.5-5.1 [facility] Comment on above: Performed By: #### L 100.0100, L500.2500 ####[facility] [address] [place], [address] Sodium [Moles/Vol] 142 mmol/L Normal 136-145 [facility] Comment on above: Performed By: #### L 100.0100, L500.2500 ####[facility] [address] [place], [address] Urea nitrogen [Mass/Vol] 23 mg/dL High 7-18 [facility] Comment on above: Performed By: #### L 100.0100, L500.2500 ####[facility] [address] [place], [address] CBC W/Diff, Automatedon 08-03 07-2023 Absolute Lymph 0.27 X10 3/uL Low 0.83-4.51 [facility] Comment on above: Performed By: #### L 100.0100, L500.2500 ####[facility] [address] [place], [address] Absolute Neut 9.0 X10 3/uL High 2.0-7.7 [facility] Comment on above: Performed By: #### L 100.0100, L500.2500 ####[facility] [address] [place], [address] Basophils/100 WBC (Bld) 0.1 % Normal 0-1 [facility] Comment on above: Performed By: #### L 100.0100, L500.2500 ####[facility] [address] [place], [address] Eosinophils/100 WBC (Bld) 0.0 % Normal 0-5 [facility] Comment on above: Performed By: #### L 100.0100, L500.2500 ####[facility] [address] [place], [address] Erythrocyte distribution width (RBC) [Ratio] 16.3 % High 11.6-14.6 [facility] Comment on above: Performed By: #### L 100.0100, L500.2500 ####[facility] [address] [place], [address] Hematocrit (Bld) [Volume fraction] 27.6 % Low 40-54 [facility] Comment on above: Performed By: #### L 100.0100, L500.2500 ####[facility] [address] [place], [address] Hemoglobin (Bld) [Mass/Vol] 8.3 g/dL Low 13.0-16.5 [facility] Comment on above: Performed By: #### L 100.0100, L500.2500 ####[facility] [address] [place], [address] IG% 0.500 Normal 0.0-0.9 [facility] Comment on above: Result Comment: IG% - Immature Granulocytes (promyelocytes, myelocytes andmetamyelocytes) > 1% indicates that a LEFT SHIFT is Present. Performed By: #### L 100.0100, L500.2500 ####[facility] [address] [place], [address] Lymphocytes/100 WBC (Bld) 2.8 % Low 19-41 [facility] Comment on above: Performed By: #### L 100.0100, L500.2500 ####[facility] [address] [place], [address] MCH (RBC) [Entitic mass] 27.5 pg Normal 27.0-32.0 [facility] Comment on above: Performed By: #### L 100.0100, L500.2500 ####[facility] [address] [place], [address] MCHC (RBC) [Mass/Vol] 30.1 g/dL Low 32-36 [facility] Comment on above: Performed By: #### L 100.0100, L500.2500 ####[facility] [address] [place], [address] MCV (RBC) [Entitic vol] 91.4 fL Normal 80-94 [facility] Comment on above: Performed By: #### L 100.0100, L500.2500 ####[facility] [address] [place], [address] Monocytes/100 WBC (Bld) 2.2 % Normal 0-10 [facility] Comment on above: Performed By: #### L 100.0100, L500.2500 ####[facility] [address] [place], [address] Neutrophils/100 WBC (Bld) 94.4 % High 47-70 [facility] Comment on above: Performed By: #### L 100.0100, L500.2500 ####[facility] [address] [place], [address] Nucleated RBC (Bld) [#/Vol] 0 10*3/uL Normal 0-5 [facility] Comment on above: Performed By: #### L 100.0100, L500.2500 ####[facility] [address] [place], [address] Platelet mean volume (Bld) [Entitic vol] 9.2 fL Normal 6.2-12.0 [facility] Comment on above: Performed By: #### L 100.0100, L500.2500 ####[facility] [address] [place], [address] Platelets (Bld) [#/Vol] 247 10*3/uL Normal 150-450 [facility] Comment on above: Performed By: #### L 100.0100, L500.2500 ####[facility] [address] [place], [address] RBC (Bld) [#/Vol] 3.02 10*6/uL Low 4.6-6.2 [facility] Comment on above: Performed By: #### L 100.0100, L500.2500 ####[facility] [address] [place], [address] RDW SD 53.0 fl High 35.1-43.9 [facility] Comment on above: Performed By: #### L 100.0100, L500.2500 ####[facility] [address] [place], [address] WBC (Bld) [#/Vol] 9.5 10*3/uL Normal 4.4-11.0 [facility] Comment on above: Performed By: #### L 100.0100, L500.2500 ####[facility] [address] [place], [address] Gram Stainon 10-16-2023 GS Acceptable Specimen? Yes (<25 Epithelial cells per/lpf) Gram Stain No organisms seen Rare White Blood Cells Rare Epithelial cells Normal [facility] Comment on above: Performed By: #### M 100.2000, M100.2400 ####[facility] [address] [place], [address] Basic Metabolic Profile (BMP )on 10-15-2023 BUN/CRE 26.8 RATIO High 10-20 [facility] Comment on above: Performed By: #### L 100.0100, L500.2500 ####[facility] [address] [place], [address] CA,Total 8.1 mg/dL Low 8.5-10.1 [facility] Comment on above: Performed By: #### L 100.0100, L500.2500 ####[facility] [address] [place], [address] Chloride [Moles/Vol] 106 mmol/L Normal 98-107 [facility] Comment on above: Performed By: #### L 100.0100, L500.2500 ####[facility] [address] [place], [address] CO2 [Moles/Vol] 30.0 mmol/L Normal 21.0-32.0 [facility] Comment on above: Performed By: #### L 100.0100, L500.2500 ####[facility] [address] [place], [address] Creatinine [Mass/Vol] 0.67 mg/dL Low 0.70-1.30 [facility] Comment on above: Result Comment: The validity of the calculated GFR GFRAA in patients over70 years has not been determined. Clinical correlation isessential. Performed By: #### L 100.0100, L500.2500 ####[facility] [address] [place], [address] ECRCL 77.13 ml/min Normal [facility] Comment on above: Performed By: #### L 100.0100, L500.2500 ####[facility] [address] [place], [address] EST GFR - AA 146 mL/min Normal >60 [facility] Comment on above: Result Comment: Afri can Wallis[place] GFR Calc Performed By: #### L 100.0100, L500.2500 ####[facility] [address] [place], [address] GAP 5 Normal 5-15 [facility] Comment on above: Performed By: #### L 100.0100, L500.2500 ####[facility] [address] [place], [address] GFR/1.73 sq M.predicted among non-blacks MDRD (S/P/Bld) [Vol rate/Area] 121 mL/min/{1.73_m2} Normal >60 [facility] Comment on above: Result Comment: Non- GFR Calc Performed By: #### L 100.0100, L500.2500 ####[facility] [address] [place], [address] Glucose [Mass/Vol] 187 mg/dL High 74-106 [facility] Comment on above: Result Comment: Fast ing Glucose result greater than or equal to 126 mg/dLsuggests DIABETES MELLITUS per A.D.A. criteria. Performed By: #### L 100.0100, L500.2500 ####[facility] [address] [place], [address] Potassium [Moles/Vol] 4.1 mmol/L Normal 3.5-5.1 [facility] Comment on above: Performed By: #### L 100.0100, L500.2500 ####[facility] [address] [place], [address] Sodium [Moles/Vol] 141 mmol/L Normal 136-145 [facility] Comment on above: Performed By: #### L 100.0100, L500.2500 ####[facility] [address] [place], [address] Urea nitrogen [Mass/Vol] 18 mg/dL Normal 7-18 [facility] Comment on above: Performed By: #### L 100.0100, L500.2500 ####[facility] [address] [place], [address] CBC W/Diff, Automatedon 08-03 06-2023 Absolute Lymph 0.25 X10 3/uL Low 0.83-4.51 [facility] Comment on above: Performed By: #### L 100.0100, L500.2500 ####[facility] [address] [place], [address] Absolute Neut 9.4 X10 3/uL High 2.0-7.7 [facility] Comment on above: Performed By: #### L 100.0100, L500.2500 ####[facility] [address] [place], [address] Basophils/100 WBC (Bld) 0.1 % Normal 0-1 [facility] Comment on above: Performed By: #### L 100.0100, L500.2500 ####[facility] [address] [place], [address] Eosinophils/100 WBC (Bld) 0.0 % Normal 0-5 [facility] Comment on above: Performed By: #### L 100.0100, L500.2500 ####[facility] [address] [place], [address] Erythrocyte distribution width (RBC) [Ratio] 16.3 % High 11.6-14.6 [facility] Comment on above: Performed By: #### L 100.0100, L500.2500 ####[facility] [address] [place], [address] Hematocrit (Bld) [Volume fraction] 27.8 % Low 40-54 [facility] Comment on above: Performed By: #### L 100.0100, L500.2500 ####[facility] [address] [place], [address] Hemoglobin (Bld) [Mass/Vol] 9.3 g/dL Low 13.0-16.5 [facility] Comment on above: Performed By: #### L 100.0100, L500.2500 ####[facility] [address] [place], [address] IG% 0.500 Normal 0.0-0.9 [facility] Comment on above: Result Comment: IG% - Immature Granulocytes (promyelocytes, myelocytes andmetamyelocytes) > 1% indicates that a LEFT SHIFT is Present. Performed By: #### L 100.0100, L500.2500 ####[facility] [address] [place], [address] Lymphocytes/100 WBC (Bld) 2.5 % Low 19-41 [facility] Comment on above: Performed By: #### L 100.0100, L500.2500 ####[facility] [address] [place], [address] MCH (RBC) [Entitic mass] 30.4 pg Normal 27.0-32.0 [facility] Comment on above: Performed By: #### L 100.0100, L500.2500 ####[facility] [address] [place], [address] MCHC (RBC) [Mass/Vol] 33.5 g/dL Normal 32-36 [facility] Comment on above: Performed By: #### L 100.0100, L500.2500 ####[facility] [address] [place], [address] MCV (RBC) [Entitic vol] 90.8 fL Normal 80-94 [facility] Comment on above: Performed By: #### L 100.0100, L500.2500 ####[facility] [address] [place], [address] Monocytes/100 WBC (Bld) 1.7 % Normal 0-10 [facility] Comment on above: Performed By: #### L 100.0100, L500.2500 ####[facility] [address] [place], [address] Neutrophils/100 WBC (Bld) 95.2 % High 47-70 [facility] Comment on above: Performed By: #### L 100.0100, L500.2500 ####[facility] [address] [place], [address] Nucleated RBC (Bld) [#/Vol] 0 10*3/uL Normal 0-5 [facility] Comment on above: Performed By: #### L 100.0100, L500.2500 ####[facility] [address] [place], [address] Platelet mean volume (Bld) [Entitic vol] 9.7 fL Normal 6.2-12.0 [facility] Comment on above: Performed By: #### L 100.0100, L500.2500 ####[facility] [address] [place], [address] Platelets (Bld) [#/Vol] 254 10*3/uL Normal 150-450 [facility] Comment on above: Performed By: #### L 100.0100, L500.2500 ####[facility] [address] [place], [address] RBC (Bld) [#/Vol] 3.06 10*6/uL Low 4.6-6.2 [facility] Comment on above: Performed By: #### L 100.0100, L500.2500 ####[facility] [address] [place], [address] RDW SD 53.3 fl High 35.1-43.9 [facility] Comment on above: Performed By: #### L 100.0100, L500.2500 ####[facility] [address] [place], [address] WBC (Bld) [#/Vol] 9.9 10*3/uL Normal 4.4-11.0 [facility] Comment on above: Performed By: #### L 100.0100, L500.2500 ####[facility] [address] [place], [address] Magnesiumon 10-15-2023 Magnesium [Mass/Vol] 2.4 mg/dL Normal 1.6-2.6 [facility] Comment on above: Order Comment: Comme nts: Add onto AM labs if possible Performed By: #### L 501.5200 ####[facility] [address] [place], [address] Basic Metabolic Profile (BMP )on 10-14-2023 BUN/CRE 15.8 RATIO Normal 10-20 [facility] Comment on above: Performed By: #### L 100.0100, L500.2500 ####[facility] [address] [place], [address] CA,Total 8.1 mg/dL Low 8.5-10.1 [facility] Comment on above: Performed By: #### L 100.0100, L500.2500 ####[facility] [address] [place], [address] Chloride [Moles/Vol] 106 mmol/L Normal 98-107 [facility] Comment on above: Performed By: #### L 100.0100, L500.2500 ####[facility] [address] [place], [address] CO2 [Moles/Vol] 26.0 mmol/L Normal 21.0-32.0 [facility] Comment on above: Performed By: #### L 100.0100, L500.2500 ####[facility] [address] [place], [address] Creatinine [Mass/Vol] 0.89 mg/dL Normal 0.70-1.30 [facility] Comment on above: Result Comment: The validity of the calculated GFR GFRAA in patients over70 years has not been determined. Clinical correlation isessential. Performed By: #### L 100.0100, L500.2500 ####[facility] [address] [place], [address] ECRCL 69.33 ml/min Normal [facility] Comment on above: Performed By: #### L 100.0100, L500.2500 ####[facility] [address] [place], [address] EST GFR - AA 106 mL/min Normal >60 [facility] Comment on above: Result Comment: Afri can [place]is[place] GFR Calc Performed By: #### L 100.0100, L500.2500 ####[facility] [address] [place], [address] GAP 7 Normal 5-15 [facility] Comment on above: Performed By: #### L 100.0100, L500.2500 ####[facility] [address] [place], [address] GFR/1.73 sq M.predicted among non-blacks MDRD (S/P/Bld) [Vol rate/Area] 88 mL/min/{1.73_m2} Normal >60 [facility] Comment on above: Result Comment: Non- GFR Calc Performed By: #### L 100.0100, L500.2500 ####[facility] [address] [place], [address] Glucose [Mass/Vol] 196 mg/dL High 74-106 [facility] Comment on above: Result Comment: Fast ing Glucose result greater than or equal to 126 mg/dLsuggests DIABETES MELLITUS per A.D.A. criteria. Performed By: #### L 100.0100, L500.2500 ####[facility] [address] [place], [address] Potassium [Moles/Vol] 4.7 mmol/L Normal 3.5-5.1 [facility] Comment on above: Result Comment: Mode rate Hemolysis, Result may be falsely increased. Performed By: #### L 100.0100, L500.2500 ####[facility] [address] [place], [address] Sodium [Moles/Vol] 139 mmol/L Normal 136-145 [facility] Comment on above: Performed By: #### L 100.0100, L500.2500 ####[facility] [address] [place], [address] Urea nitrogen [Mass/Vol] 14 mg/dL Normal 7-18 [facility] Comment on above: Performed By: #### L 100.0100, L500.2500 ####[facility] [address] [place], [address] CBC W/Diff, Automatedon 09-30 Absolute Lymph 0.26 X10 3/uL Low 0.83-4.51 [facility] Comment on above: Performed By: #### L 100.0100, L500.2500 ####[facility] [address] [place], [address] Absolute Neut 6.6 X10 3/uL Normal 2.0-7.7 [facility] Comment on above: Performed By: #### L 100.0100, L500.2500 ####[facility] [address] [place], [address] Basophils/100 WBC (Bld) 0.0 % Normal 0-1 [facility] Comment on above: Performed By: #### L 100.0100, L500.2500 ####[facility] [address] [place], [address] Eosinophils/100 WBC (Bld) 0.0 % Normal 0-5 [facility] Comment on above: Performed By: #### L 100.0100, L500.2500 ####[facility] [address] [place], [address] Erythrocyte distribution width (RBC) [Ratio] 16.6 % High 11.6-14.6 [facility] Comment on above: Performed By: #### L 100.0100, L500.2500 ####[facility] [address] [place], [address] Hematocrit (Bld) [Volume fraction] 31.5 % Low 40-54 [facility] Comment on above: Performed By: #### L 100.0100, L500.2500 ####[facility] [address] [place], [address] Hemoglobin (Bld) [Mass/Vol] 9.6 g/dL Low 13.0-16.5 [facility] Comment on above: Performed By: #### L 100.0100, L500.2500 ####[facility] [address] [place], [address] IG% 0.900 Normal 0.0-0.9 [facility] Comment on above: Result Comment: IG% - Immature Granulocytes (promyelocytes, myelocytes andmetamyelocytes) > 1% indicates that a LEFT SHIFT is Present. Performed By: #### L 100.0100, L500.2500 ####[facility] [address] [place], [address] Lymphocytes/100 WBC (Bld) 3.7 % Low 19-41 [facility] Comment on above: Performed By: #### L 100.0100, L500.2500 ####[facility] [address] [place], [address] MCH (RBC) [Entitic mass] 28.1 pg Normal 27.0-32.0 [facility] Comment on above: Performed By: #### L 100.0100, L500.2500 ####[facility] [address] [place], [address] MCHC (RBC) [Mass/Vol] 30.5 g/dL Low 32-36 [facility] Comment on above: Performed By: #### L 100.0100, L500.2500 ####[facility] [address] [place], [address] MCV (RBC) [Entitic vol] 92.1 fL Normal 80-94 [facility] Comment on above: Performed By: #### L 100.0100, L500.2500 ####[facility] [address] [place], [address] Monocytes/100 WBC (Bld) 1.0 % Normal 0-10 [facility] Comment on above: Performed By: #### L 100.0100, L500.2500 ####[facility] [address] [place], [address] Neutrophils/100 WBC (Bld) 94.4 % High 47-70 [facility] Comment on above: Performed By: #### L 100.0100, L500.2500 ####[facility] [address] [place], [address] Nucleated RBC (Bld) [#/Vol] 0 10*3/uL Normal 0-5 [facility] Comment on above: Performed By: #### L 100.0100, L500.2500 ####[facility] [address] [place], [address] Platelet mean volume (Bld) [Entitic vol] 10.0 fL Normal 6.2-12.0 [facility] Comment on above: Performed By: #### L 100.0100, L500.2500 ####[facility] [address] [place], [address] Platelets (Bld) [#/Vol] 252 10*3/uL Normal 150-450 [facility] Comment on above: Performed By: #### L 100.0100, L500.2500 ####[facility] [address] [place], [address] RBC (Bld) [#/Vol] 3.42 10*6/uL Low 4.6-6.2 [facility] Comment on above: Performed By: #### L 100.0100, L500.2500 ####[facility] [address] [place], [address] RDW SD 55.4 fl High 35.1-43.9 [facility] Comment on above: Performed By: #### L 100.0100, L500.2500 ####[facility] [address] [place], [address] WBC (Bld) [#/Vol] 7.0 10*3/uL Normal 4.4-11.0 [facility] Comment on above: Performed By: #### L 100.0100, L500.2500 ####[facility] [address] [place], [address] Venous Duplex US - Martita Extre mon 10-14-2023 Venous Duplex US - Martita Extrem Normal [facility] Basic Metabolic Profile (BMP )on 10-13-2023 BUN/CRE 20.0 RATIO Normal 10-20 [facility] Comment on above: Performed By: #### L 100.0100, L500.2500, L501.5200 ####[facility] [address] [place], [address] CA,Total 8.1 mg/dL Low 8.5-10.1 [facility] Comment on above: Performed By: #### L 100.0100, L500.2500, L501.5200 ####[facility] [address] [place], [address] Chloride [Moles/Vol] 108 mmol/L High 98-107 [facility] Comment on above: Performed By: #### L 100.0100, L500.2500, L501.5200 ####[facility] [address] [place], [address] CO2 [Moles/Vol] 28.0 mmol/L Normal 21.0-32.0 [facility] Comment on above: Performed By: #### L 100.0100, L500.2500, L501.5200 ####[facility] [address] [place], [address] Creatinine [Mass/Vol] 0.55 mg/dL Low 0.70-1.30 [facility] Comment on above: Result Comment: The validity of the calculated GFR GFRAA in patients over70 years has not been determined. Clinical correlation isessential. Performed By: #### L 100.0100, L500.2500, L501.5200 ####[facility] [address] [place], [address] ECRCL 77.13 ml/min Normal [facility] Comment on above: Performed By: #### L 100.0100, L500.2500, L501.5200 ####[facility] [address] [place], [address] EST GFR - AA 183 mL/min Normal >60 [facility] Comment on above: Result Comment: Afri can [place] GFR Calc Performed By: #### L 100.0100, L500.2500, L501.5200 ####[facility] [address] [place], [address] GAP 4 Low 5-15 [facility] Comment on above: Performed By: #### L 100.0100, L500.2500, L501.5200 ####[facility] [address] [place], [address] GFR/1.73 sq M.predicted among non-blacks MDRD (S/P/Bld) [Vol rate/Area] 152 mL/min/{1.73_m2} Normal >60 [facility] Comment on above: Result Comment: Non- GFR Calc Performed By: #### L 100.0100, L500.2500, L501.5200 ####[facility] [address] [place], [address] Glucose [Mass/Vol] 103 mg/dL Normal 74-106 [facility] Comment on above: Result Comment: Fast ing Glucose result from 100 to 125 mg/dLsuggests IMPAIRED HOMEOSTASIS per A.D.A. criteria. Performed By: #### L 100.0100, L500.2500, L501.5200 ####[facility] [address] [place], [address] Potassium [Moles/Vol] 4.0 mmol/L Normal 3.5-5.1 [facility] Comment on above: Performed By: #### L 100.0100, L500.2500, L501.5200 ####[facility] [address] [place], [address] Sodium [Moles/Vol] 140 mmol/L Normal 136-145 [facility] Comment on above: Performed By: #### L 100.0100, L500.2500, L501.5200 ####[facility] [address] [place], [address] Urea nitrogen [Mass/Vol] 11 mg/dL Normal 7-18 [facility] Comment on above: Performed By: #### L 100.0100, L500.2500, L501.5200 ####[facility] [address] [place], [address] Blood Gases by [facility] 024 LUCY TEST Positive Normal [facility] Comment on above: Performed By: #### L 9000.0800 ####[facility] [address] [place], [address] Base excess Calc (Bld) [Moles/Vol] 3 mmol/L High -2 to +2 [facility] Comment on above: Performed By: #### L 9000.0800 ####[facility] [address] [place], [address] Blood Gas Type ART Normal [facility] Comment on above: Performed By: #### L 9000.0800 ####[facility] [address] [place], [address] CO2 [Moles/Vol] 28 mmol/L Normal [facility] Comment on above: Performed By: #### L 9000.0800 ####[facility] [address] [place], [address] FI02 4.0 Normal [facility] Comment on above: Performed By: #### L 9000.0800 ####[facility] [address] [place], [address] HCO3 (Bld) [Moles/Vol] 26.9 mmol/L High 22-26 [facility] Comment on above: Performed By: #### L 9000.0800 ####[facility] [address] [place], [address] Mode Not entered Normal [facility] Comment on above: Performed By: #### L 9000.0800 ####[facility] [address] [place], [address] O2 Delivery Dev Cannula Normal [facility] Comment on above: Performed By: #### L 8999.0800 ####[facility] [address] [place], [address] pCO2 38.2 mmHg Normal 35-45 [facility] Comment on above: Performed By: #### L 0.0800 ####[facility] [address] [place], [address] pH (Bld) 7.46 [pH] High 7.35-7.45 [facility] Comment on above: Performed By: #### L 0.0800 ####[facility] [address] [place], [address] PO2 73 mmHG Low 75-100 [facility] Comment on above: Performed By: #### L 0.0800 ####[facility] [address] [place], [address] SITE L Radial Normal [facility] Comment on above: Performed By: #### L 0.0800 ####[facility] [address] [place], [address] SO2 95 Normal 95-99 [facility] Comment on above: Performed By: #### L 0.0800 ####[facility] [address] [place], [address] CBC W/Diff, Automatedon - Absolute Lymph 0.51 X10 3/uL Low 0.83-4.51 [facility] Comment on above: Performed By: #### L 100.0100, L500.2500, L501.5200 ####[facility] [address] [place], [address] Absolute Neut 7.8 X10 3/uL High 2.0-7.7 [facility] Comment on above: Performed By: #### L 100.0100, L500.2500, L501.5200 ####[facility] [address] [place], [address] Basophils/100 WBC (Bld) 0.1 % Normal 0-1 [facility] Comment on above: Performed By: #### L 100.0100, L500.2500, L501.5200 ####[facility] [address] [place], [address] Eosinophils/100 WBC (Bld) 0.8 % Normal 0-5 [facility] Comment on above: Performed By: #### L 100.0100, L500.2500, L501.5200 ####[facility] [address] [place], [address] Erythrocyte distribution width (RBC) [Ratio] 16.9 % High 11.6-14.6 [facility] Comment on above: Performed By: #### L 100.0100, L500.2500, L501.5200 ####[facility] [address] [place], [address] Hematocrit (Bld) [Volume fraction] 30.2 % Low 40-54 [facility] Comment on above: Performed By: #### L 100.0100, L500.2500, L501.5200 ####[facility] [address] [place], [address] Hemoglobin (Bld) [Mass/Vol] 9.0 g/dL Low 13.0-16.5 [facility] Comment on above: Performed By: #### L 100.0100, L500.2500, L501.5200 ####[facility] [address] [place], [address] IG% 1.100 High 0.0-0.9 [facility] Comment on above: Result Comment: IG% - Immature Granulocytes (promyelocytes, myelocytes andmetamyelocytes) > 1% indicates that a LEFT SHIFT is Present. Performed By: #### L 100.0100, L500.2500, L501.5200 ####[facility] [address] [place], [address] Lymphocytes/100 WBC (Bld) 5.7 % Low 19-41 [facility] Comment on above: Performed By: #### L 100.0100, L500.2500, L501.5200 ####[facility] [address] [place], [address] MCH (RBC) [Entitic mass] 27.4 pg Normal 27.0-32.0 [facility] Comment on above: Performed By: #### L 100.0100, L500.2500, L501.5200 ####[facility] [address] [place], [address] MCHC (RBC) [Mass/Vol] 29.8 g/dL Low 32-36 [facility] Comment on above: Performed By: #### L 100.0100, L500.2500, L501.5200 ####[facility] [address] [place], [address] MCV (RBC) [Entitic vol] 91.8 fL Normal 80-94 [facility] Comment on above: Performed By: #### L 100.0100, L500.2500, L501.5200 ####[facility] [address] [place], [address] Monocytes/100 WBC (Bld) 6.3 % Normal 0-10 [facility] Comment on above: Performed By: #### L 100.0100, L500.2500, L501.5200 ####[facility] [address] [place], [address] Neutrophils/100 WBC (Bld) 86.0 % High 47-70 [facility] Comment on above: Performed By: #### L 100.0100, L500.2500, L501.5200 ####[facility] [address] [place], [address] Nucleated RBC (Bld) [#/Vol] 0 10*3/uL Normal 0-5 [facility] Comment on above: Performed By: #### L 100.0100, L500.2500, L501.5200 ####[facility] [address] [place], [address] Platelet mean volume (Bld) [Entitic vol] 9.5 fL Normal 6.2-12.0 [facility] Comment on above: Performed By: #### L 100.0100, L500.2500, L501.5200 ####[facility] [address] [place], [address] Platelets (Bld) [#/Vol] 231 10*3/uL Normal 150-450 [facility] Comment on above: Performed By: #### L 100.0100, L500.2500, L501.5200 ####[facility] [address] [place], [address] RBC (Bld) [#/Vol] 3.29 10*6/uL Low 4.6-6.2 [facility] Comment on above: Performed By: #### L 100.0100, L500.2500, L501.5200 ####[facility] [address] [place], [address] RDW SD 54.4 fl High 35.1-43.9 [facility] Comment on above: Performed By: #### L 100.0100, L500.2500, L501.5200 ####[facility] [address] [place], [address] WBC (Bld) [#/Vol] 9.0 10*3/uL Normal 4.4-11.0 [facility] Comment on above: Performed By: #### L 100.0100, L500.2500, L501.5200 ####[facility] [address] [place], [address] Chest 1 View (Portable)on Chest 1 View (Portable) Normal [facility] Magnesiumon 10-13-2023 Magnesium [Mass/Vol] 2.2 mg/dL Normal 1.6-2.6 [facility] Comment on above: Performed By: #### L 100.0100, L500.2500, L501.5200 ####[facility] [address] [place], [address] Basic Metabolic Profile (BMP )on 10-12-2023 BUN/CRE 18.6 RATIO Normal 10-20 [facility] Comment on above: Performed By: #### L 100.0100, L500.2500 ####[facility] [address] [place], [address] CA,Total 7.8 mg/dL Low 8.5-10.1 [facility] Comment on above: Performed By: #### L 100.0100, L500.2500 ####[facility] [address] [place], [address] Chloride [Moles/Vol] 109 mmol/L High 98-107 [facility] Comment on above: Performed By: #### L 100.0100, L500.2500 ####[facility] [address] [place], [address] CO2 [Moles/Vol] 28.0 mmol/L Normal 21.0-32.0 [facility] Comment on above: Performed By: #### L 100.0100, L500.2500 ####[facility] [address] [place], [address] Creatinine [Mass/Vol] 0.59 mg/dL Low 0.70-1.30 [facility] Comment on above: Result Comment: The validity of the calculated GFR GFRAA in patients over70 years has not been determined. Clinical correlation isessential. Performed By: #### L 100.0100, L500.2500 ####[facility] [address] [place], [address] ECRCL 77.13 ml/min Normal [facility] Comment on above: Performed By: #### L 100.0100, L500.2500 ####[facility] [address] [place], [address] EST GFR - AA 169 mL/min Normal >60 [facility] Comment on above: Result Comment: Afri can Wallisian GFR Calc Performed By: #### L 100.0100, L500.2500 ####[facility] [address] [place], [address] GAP 3 Low 5-15 [facility] Comment on above: Performed By: #### L 100.0100, L500.2500 ####[facility] [address] [place], [address] GFR/1.73 sq M.predicted among non-blacks MDRD (S/P/Bld) [Vol rate/Area] 140 mL/min/{1.73_m2} Normal >60 [facility] Comment on above: Result Comment: Non- GFR Calc Performed By: #### L 100.0100, L500.2500 ####[facility] [address] [place], [address] Glucose [Mass/Vol] 99 mg/dL Normal 74-106 [facility] Comment on above: Performed By: #### L 100.0100, L500.2500 ####[facility] [address] [place], [address] Potassium [Moles/Vol] 3.3 mmol/L Low 3.5-5.1 [facility] Comment on above: Performed By: #### L 100.0100, L500.2500 ####[facility] [address] [place], [address] Sodium [Moles/Vol] 140 mmol/L Normal 136-145 [facility] Comment on above: Performed By: #### L 100.0100, L500.2500 ####[facility] [address] [place], [address] Urea nitrogen [Mass/Vol] 11 mg/dL Normal 7-18 [facility] Comment on above: Performed By: #### L 100.0100, L500.2500 ####[facility] [address] [place], [address] CBC W/Diff, Automatedon 08- 2-2023 Absolute Lymph 0.47 X10 3/uL Low 0.83-4.51 [facility] Comment on above: Performed By: #### L 100.0100, L500.2500 ####[facility] [address] [place], [address] Absolute Neut 8.9 X10 3/uL High 2.0-7.7 [facility] Comment on above: Performed By: #### L 100.0100, L500.2500 ####[facility] [address] [place], [address] Basophils/100 WBC (Bld) 0.1 % Normal 0-1 [facility] Comment on above: Performed By: #### L 100.0100, L500.2500 ####[facility] [address] [place], [address] Eosinophils/100 WBC (Bld) 1.0 % Normal 0-5 [facility] Comment on above: Performed By: #### L 100.0100, L500.2500 ####[facility] [address] [place], [address] Erythrocyte distribution width (RBC) [Ratio] 16.9 % High 11.6-14.6 [facility] Comment on above: Performed By: #### L 100.0100, L500.2500 ####[facility] [address] [place], [address] Hematocrit (Bld) [Volume fraction] 28.8 % Low 40-54 [facility] Comment on above: Performed By: #### L 100.0100, L500.2500 ####[facility] [address] [place], [address] Hemoglobin (Bld) [Mass/Vol] 8.7 g/dL Low 13.0-16.5 [facility] Comment on above: Performed By: #### L 100.0100, L500.2500 ####[facility] [address] [place], [address] IG% 1.200 High 0.0-0.9 [facility] Comment on above: Result Comment: IG% - Immature Granulocytes (promyelocytes, myelocytes andmetamyelocytes) > 1% indicates that a LEFT SHIFT is Present. Performed By: #### L 100.0100, L500.2500 ####[facility] [address] [place], [address] Lymphocytes/100 WBC (Bld) 4.6 % Low 19-41 [facility] Comment on above: Performed By: #### L 100.0100, L500.2500 ####[facility] [address] [place], [address] MCH (RBC) [Entitic mass] 28.0 pg Normal 27.0-32.0 [facility] Comment on above: Performed By: #### L 100.0100, L500.2500 ####[facility] [address] [place] [place], [address] MCHC (RBC) [Mass/Vol] 30.2 g/dL Low 32-36 [facility] Comment on above: Performed By: #### L 100.0100, L500.2500 ####[facility] [address] [place], [address] MCV (RBC) [Entitic vol] 92.6 fL Normal 80-94 [facility] Comment on above: Performed By: #### L 100.0100, L500.2500 ####[facility] [address] [place], [address] Monocytes/100 WBC (Bld) 6.4 % Normal 0-10 [facility] Comment on above: Performed By: #### L 100.0100, L500.2500 ####[facility] [address] [place], [address] Neutrophils/100 WBC (Bld) 86.7 % High 47-70 [facility] Comment on above: Performed By: #### L 100.0100, L500.2500 ####[facility] [address] [place], [address] Nucleated RBC (Bld) [#/Vol] 0.4 10*3/uL Normal 0-5 [facility] Comment on above: Performed By: #### L 100.0100, L500.2500 ####[facility] [address] [place], [address] Platelet mean volume (Bld) [Entitic vol] 9.7 fL Normal 6.2-12.0 [facility] Comment on above: Performed By: #### L 100.0100, L500.2500 ####[facility] [address] [place], [address] Platelets (Bld) [#/Vol] 229 10*3/uL Normal 150-450 [facility] Comment on above: Performed By: #### L 100.0100, L500.2500 ####[facility] [address] [place], [address] RBC (Bld) [#/Vol] 3.11 10*6/uL Low 4.6-6.2 [facility] Comment on above: Performed By: #### L 100.0100, L500.2500 ####[facility] [address] [place], [address] RDW SD 54.6 fl High 35.1-43.9 [facility] Comment on above: Performed By: #### L 100.0100, L500.2500 ####[facility] [address] [place], [address] WBC (Bld) [#/Vol] 10.3 10*3/uL Normal 4.4-11.0 [facility] Comment on above: Performed By: #### L 100.0100, L500.2500 ####[facility] [address] [place], [address] Procedure Reporton Procedure Report Normal [facility] Basic Metabolic Profile (BMP )on 10-11-2023 BUN/CRE 21.5 RATIO High 10-20 [facility] Comment on above: Performed By: #### L 500.2500, L100.0100 ####[facility] [address] [place], [address] CA,Total 7.8 mg/dL Low 8.5-10.1 [facility] Comment on above: Performed By: #### L 500.2500, L100.0100 ####[facility] [address] [place], [address] Chloride [Moles/Vol] 110 mmol/L High 98-107 [facility] Comment on above: Performed By: #### L 500.2500, L100.0100 ####[facility] [address] [place], [address] CO2 [Moles/Vol] 29.0 mmol/L Normal 21.0-32.0 [facility] Comment on above: Performed By: #### L 500.2500, L100.0100 ####[facility] [address] [place], [address] Creatinine [Mass/Vol] 0.60 mg/dL Low 0.70-1.30 [facility] Comment on above: Result Comment: The validity of the calculated GFR GFRAA in patients over70 years has not been determined. Clinical correlation isessential. Performed By: #### L 500.2500, L100.0100 ####[facility] [address] [place], [address] ECRCL 77.13 ml/min Normal [facility] Comment on above: Performed By: #### L 500.2500, L100.0100 ####[facility] [address] [place], [address] EST GFR - AA 165 mL/min Normal >60 [facility] Comment on above: Result Comment: Afri can [place] GFR Calc Performed By: #### L 500.2500, L100.0100 ####[facility] [address] [place], [address] GAP 2 Low 5-15 [facility] Comment on above: Performed By: #### L 500.2500, L100.0100 ####[facility] [address] [place], [address] GFR/1.73 sq M.predicted among non-blacks MDRD (S/P/Bld) [Vol rate/Area] 136 mL/min/{1.73_m2} Normal >60 [facility] Comment on above: Result Comment: Non- GFR Calc Performed By: #### L 500.2500, L100.0100 ####[facility] [address] [place], [address] Glucose [Mass/Vol] 112 mg/dL High 74-106 [facility] Comment on above: Result Comment: Fast ing Glucose result from 100 to 125 mg/dLsuggests IMPAIRED HOMEOSTASIS per A.D.A. criteria. Performed By: #### L 500.2500, L100.0100 ####[facility] [address] [place], [address] Potassium [Moles/Vol] 3.6 mmol/L Normal 3.5-5.1 [facility] Comment on above: Performed By: #### L 500.2500, L100.0100 ####[facility] [address] [place], [address] Sodium [Moles/Vol] 141 mmol/L Normal 136-145 [facility] Comment on above: Performed By: #### L 500.2500, L100.0100 ####[facility] [address] [place], [address] Urea nitrogen [Mass/Vol] 13 mg/dL Normal 7-18 [facility] Comment on above: Performed By: #### L 500.2500, L100.0100 ####[facility] [address] [place], [address] CBC W/Diff, Automatedon 08- Absolute Lymph 0.38 X10 3/uL Low 0.83-4.51 [facility] Comment on above: Performed By: #### L 500.2500, L100.0100 ####[facility] [address] [place], [address] Absolute Neut 10.4 X10 3/uL High 2.0-7.7 [facility] Comment on above: Performed By: #### L 500.2500, L100.0100 ####[facility] [address] [place], [address] Basophils/100 WBC (Bld) 0.2 % Normal 0-1 [facility] Comment on above: Performed By: #### L 500.2500, L100.0100 ####[facility] [address] [place], [address] Eosinophils/100 WBC (Bld) 0.8 % Normal 0-5 [facility] Comment on above: Performed By: #### L 500.2500, L100.0100 ####[facility] [address] [place], [address] Erythrocyte distribution width (RBC) [Ratio] 17.0 % High 11.6-14.6 [facility] Comment on above: Performed By: #### L 500.2500, L100.0100 ####[facility] [address] [place], [address] Hematocrit (Bld) [Volume fraction] 27.3 % Low 40-54 [facility] Comment on above: Performed By: #### L 500.2500, L100.0100 ####[facility] [address] [place], [address] Hemoglobin (Bld) [Mass/Vol] 8.4 g/dL Low 13.0-16.5 [facility] Comment on above: Performed By: #### L 500.2500, L100.0100 ####[facility] [address] [place], [address] IG% 1.000 High 0.0-0.9 [facility] Comment on above: Result Comment: IG% - Immature Granulocytes (promyelocytes, myelocytes andmetamyelocytes) > 1% indicates that a LEFT SHIFT is Present. Performed By: #### L 500.2500, L100.0100 ####[facility] [address] [place], [address] Lymphocytes/100 WBC (Bld) 3.3 % Low 19-41 [facility] Comment on above: Performed By: #### L 500.2500, L100.0100 ####[facility] [address] [place], [address] MCH (RBC) [Entitic mass] 27.7 pg Normal 27.0-32.0 [facility] Comment on above: Performed By: #### L 500.2500, L100.0100 ####[facility] [address] [place], [address] MCHC (RBC) [Mass/Vol] 30.8 g/dL Low 32-36 [facility] Comment on above: Performed By: #### L 500.2500, L100.0100 ####[facility] [address] [place], [address] MCV (RBC) [Entitic vol] 90.1 fL Normal 80-94 [facility] Comment on above: Performed By: #### L 500.2500, L100.0100 ####[facility] [address] [place], [address] Monocytes/100 WBC (Bld) 6.0 % Normal 0-10 [facility] Comment on above: Performed By: #### L 500.2500, L100.0100 ####[facility] [address] [place], [address] Neutrophils/100 WBC (Bld) 88.7 % High 47-70 [facility] Comment on above: Performed By: #### L 500.2500, L100.0100 ####[facility] [address] [place], [address] Nucleated RBC (Bld) [#/Vol] 0.4 10*3/uL Normal 0-5 [facility] Comment on above: Performed By: #### L 500.2500, L100.0100 ####[facility] [address] [place], [address] Platelet mean volume (Bld) [Entitic vol] 9.7 fL Normal 6.2-12.0 [facility] Comment on above: Performed By: #### L 500.2500, L100.0100 ####[facility] [address] [place], [address] Platelets (Bld) [#/Vol] 214 10*3/uL Normal 150-450 [facility] Comment on above: Performed By: #### L 500.2500, L100.0100 ####[facility] [address] [place], [address] RBC (Bld) [#/Vol] 3.03 10*6/uL Low 4.6-6.2 [facility] Comment on above: Performed By: #### L 500.2500, L100.0100 ####[facility] [address] [place], [address] RDW SD 53.4 fl High 35.1-43.9 [facility] Comment on above: Performed By: #### L 500.2500, L100.0100 ####[facility] [address] [place], [address] WBC (Bld) [#/Vol] 11.7 10*3/uL High 4.4-11.0 [facility] Comment on above: Performed By: #### L 500.2500, L100.0100 ####[facility] [address] [place], [address] Culture, Blood (WB)on 2023 CUB Blood cultures x2 fr om two different sites No growth in 5 days. Normal [facility] Comment on above: Performed By: #### M 200.1000 ####[facility] [address] [place], [address] Basic Metabolic Profile (BMP )on 10-10-2023 BUN/CRE 24.3 RATIO High 10-20 [facility] Comment on above: Performed By: #### L 100.0100, L500.2500 ####[facility] [address] [place], [address] CA,Total 7.6 mg/dL Low 8.5-10.1 [facility] Comment on above: Performed By: #### L 100.0100, L500.2500 ####[facility] [address] [place], [address] Chloride [Moles/Vol] 113 mmol/L High 98-107 [facility] Comment on above: Performed By: #### L 100.0100, L500.2500 ####[facility] [address] [place], [address] CO2 [Moles/Vol] 27.0 mmol/L Normal 21.0-32.0 [facility] Comment on above: Performed By: #### L 100.0100, L500.2500 ####[facility] [address] [place], [address] Creatinine [Mass/Vol] 0.70 mg/dL Normal 0.70-1.30 [facility] Comment on above: Result Comment: The validity of the calculated GFR GFRAA in patients over70 years has not been determined. Clinical correlation isessential. Performed By: #### L 100.0100, L500.2500 ####[facility] [address] [place], [address] ECRCL 77.13 ml/min Normal [facility] Comment on above: Performed By: #### L 100.0100, L500.2500 ####[facility] [address] [place], [address] EST GFR - AA 139 mL/min Normal >60 [facility] Comment on above: Result Comment: Afri can Wallisian GFR Calc Performed By: #### L 100.0100, L500.2500 ####[facility] [address] [place], [address] GAP 4 Low 5-15 [facility] Comment on above: Performed By: #### L 100.0100, L500.2500 ####[facility] [address] [place], [address] GFR/1.73 sq M.predicted among non-blacks MDRD (S/P/Bld) [Vol rate/Area] 115 mL/min/{1.73_m2} Normal >60 [facility] Comment on above: Result Comment: Non- GFR Calc Performed By: #### L 100.0100, L500.2500 ####[facility] [address] [place], [address] Glucose [Mass/Vol] 114 mg/dL High 74-106 [facility] Comment on above: Result Comment: Fast ing Glucose result from 100 to 125 mg/dLsuggests IMPAIRED HOMEOSTASIS per A.D.A. criteria. Performed By: #### L 100.0100, L500.2500 ####[facility] [address] [place], [address] Potassium [Moles/Vol] 3.5 mmol/L Normal 3.5-5.1 [facility] Comment on above: Performed By: #### L 100.0100, L500.2500 ####[facility] [address] [place], [address] Sodium [Moles/Vol] 144 mmol/L Normal 136-145 [facility] Comment on above: Performed By: #### L 100.0100, L500.2500 ####[facility] [address] [place], [address] Urea nitrogen [Mass/Vol] 17 mg/dL Normal 7-18 [facility] Comment on above: Performed By: #### L 100.0100, L500.2500 ####[facility] [address] [place], [address] CBC W/Diff, Automatedon 08- 0-4 Absolute Lymph 0.34 X10 3/uL Low 0.83-4.51 [facility] Comment on above: Performed By: #### L 100.0100, L500.2500 ####[facility] [address] [place], [address] Absolute Neut 11.5 X10 3/uL High 2.0-7.7 [facility] Comment on above: Performed By: #### L 100.0100, L500.2500 ####[facility] [address] [place], [address] Basophils/100 WBC (Bld) 0.1 % Normal 0-1 [facility] Comment on above: Performed By: #### L 100.0100, L500.2500 ####[facility] [address] [place], [address] Eosinophils/100 WBC (Bld) 0.6 % Normal 0-5 [facility] Comment on above: Performed By: #### L 100.0100, L500.2500 ####[facility] [address] [place], [address] Erythrocyte distribution width (RBC) [Ratio] 16.5 % High 11.6-14.6 [facility] Comment on above: Performed By: #### L 100.0100, L500.2500 ####[facility] [address] [place], [address] Hematocrit (Bld) [Volume fraction] 28.4 % Low 40-54 [facility] Comment on above: Performed By: #### L 100.0100, L500.2500 ####[facility] [address] [place], [address] Hemoglobin (Bld) [Mass/Vol] 9.1 g/dL Low 13.0-16.5 [facility] Comment on above: Performed By: #### L 100.0100, L500.2500 ####[facility] [address] [place], [address] IG% 0.600 Normal 0.0-0.9 [facility] Comment on above: Result Comment: IG% - Immature Granulocytes (promyelocytes, myelocytes andmetamyelocytes) > 1% indicates that a LEFT SHIFT is Present. Performed By: #### L 100.0100, L500.2500 ####[facility] [address] [place], [address] Lymphocytes/100 WBC (Bld) 2.7 % Low 19-41 [facility] Comment on above: Performed By: #### L 100.0100, L500.2500 ####[facility] [address] [place], [address] MCH (RBC) [Entitic mass] 28.4 pg Normal 27.0-32.0 [facility] Comment on above: Performed By: #### L 100.0100, L500.2500 ####[facility] [address] [place], [address] MCHC (RBC) [Mass/Vol] 32.0 g/dL Normal 32-36 [facility] Comment on above: Performed By: #### L 100.0100, L500.2500 ####[facility] [address] [place], [address] MCV (RBC) [Entitic vol] 88.8 fL Normal 80-94 [facility] Comment on above: Performed By: #### L 100.0100, L500.2500 ####[facility] [address] [place], [address] Monocytes/100 WBC (Bld) 5.0 % Normal 0-10 [facility] Comment on above: Performed By: #### L 100.0100, L500.2500 ####[facility] [address] [place], [address] Neutrophils/100 WBC (Bld) 91.0 % High 47-70 [facility] Comment on above: Performed By: #### L 100.0100, L500.2500 ####[facility] [address] [place], [address] Nucleated RBC (Bld) [#/Vol] 0.6 10*3/uL Normal 0-5 [facility] Comment on above: Performed By: #### L 100.0100, L500.2500 ####[facility] [address] [place], [address] Platelet mean volume (Bld) [Entitic vol] 9.4 fL Normal 6.2-12.0 [facility] Comment on above: Performed By: #### L 100.0100, L500.2500 ####[facility] [address] [place], [address] Platelets (Bld) [#/Vol] 181 10*3/uL Normal 150-450 [facility] Comment on above: Performed By: #### L 100.0100, L500.2500 ####[facility] [address] [place], [address] RBC (Bld) [#/Vol] 3.20 10*6/uL Low 4.6-6.2 [facility] Comment on above: Performed By: #### L 100.0100, L500.2500 ####[facility] [address] [place], [address] RDW SD 51.6 fl High 35.1-43.9 [facility] Comment on above: Performed By: #### L 100.0100, L500.2500 ####[facility] [address] [place], [address] WBC (Bld) [#/Vol] 12.6 10*3/uL High 4.4-11.0 [facility] Comment on above: Performed By: #### L 100.0100, L500.2500 ####[facility] [address], [address] MR/PN.GIon 10-10-2023 MR/PN.GI Normal [facility] Vancomycin, Trough Levelon 0 10-10-2023 VANCO, TROUGH 13.8 ug/mL Normal 5.0-15.0 [facility] Comment on above: Order Comment: Comme nts: DRAW 30 MIN PRIOR TO [id number] Result Comment: VANC OMYCIN STANDARED DRUG THERAPY TROUGH LEVEL: 5.0 - 15.0 mg/LVANCOMYCIN HIGH INTENSITY THERAPY TROUGH LEVEL: 15.0 - 20.0 mg/LHigh Intensity therapy recommended for serious lifethreatening infections include:- Uzahoytxgy-Lkqmwmbmqjcw-Wceajaqjm (Ventilator/Healtcare Associated)-SepsisPLEASE CONTACT PHARMACY SERVICES (#8089) FOR INTERPRETATIONOF RESULTS. Performed By: #### L 501.8887 ####[facility] [address] [place], [address] BRCon 10-09-2023 RC Normal [facility] Comment on above: Result Comment: [id number] ON RC TRANSFUSED 10/09/23 [id number] ON RC TRANSFUSED 10/09/23 1331 Performed By: #### B RC, BTS ####[facility] [address] [place], [address] Basic Metabolic Profile (BMP )on 10-09-2023 BUN/CRE 32.7 RATIO High 10-20 [facility] Comment on above: Performed By: #### L 100.0100, L500.2500 ####[facility] [address] [place], [address] CA,Total 7.4 mg/dL Low 8.5-10.1 [facility] Comment on above: Performed By: #### L 100.0100, L500.2500 ####[facility] [address] [place], [address] Chloride [Moles/Vol] 112 mmol/L High 98-107 [facility] Comment on above: Performed By: #### L 100.0100, L500.2500 ####[facility] [address] [place], [address] CO2 [Moles/Vol] 29.0 mmol/L Normal 21.0-32.0 [facility] Comment on above: Performed By: #### L 100.0100, L500.2500 ####[facility] [address] [place], [address] Creatinine [Mass/Vol] 0.74 mg/dL Normal 0.70-1.30 [facility] Comment on above: Result Comment: The validity of the calculated GFR GFRAA in patients over70 years has not been determined. Clinical correlation isessential. Performed By: #### L 100.0100, L500.2500 ####[facility] [address] [place], [address] ECRCL 77.13 ml/min Normal [facility] Comment on above: Performed By: #### L 100.0100, L500.2500 ####[facility] [address] [place], [address] EST GFR - AA 132 mL/min Normal >60 [facility] Comment on above: Result Comment: Afri can [place] GFR Calc Performed By: #### L 100.0100, L500.2500 ####[facility] [address] [place], [address] GAP 2 Low 5-15 [facility] Comment on above: Performed By: #### L 100.0100, L500.2500 ####[facility] [address] [place], [address] GFR/1.73 sq M.predicted among non-blacks MDRD (S/P/Bld) [Vol rate/Area] 109 mL/min/{1.73_m2} Normal >60 [facility] Comment on above: Result Comment: Non- GFR Calc Performed By: #### L 100.0100, L500.2500 ####[facility] [address] [place], [address] Glucose [Mass/Vol] 129 mg/dL High 74-106 [facility] Comment on above: Result Comment: Fast ing Glucose result greater than or equal to 126 mg/dLsuggests DIABETES MELLITUS per A.D.A. criteria. Performed By: #### L 100.0100, L500.2500 ####[facility] [address] [place], [address] Potassium [Moles/Vol] 3.3 mmol/L Low 3.5-5.1 [facility] Comment on above: Performed By: #### L 100.0100, L500.2500 ####[facility] [address] [place], [address] Sodium [Moles/Vol] 143 mmol/L Normal 136-145 [facility] Comment on above: Performed By: #### L 100.0100, L500.2500 ####[facility] [address] [place], [address] Urea nitrogen [Mass/Vol] 24 mg/dL High 7-18 [facility] Comment on above: Performed By: #### L 100.0100, L500.2500 ####[facility] [address] [place], [address] CBC W/Diff, Automatedon 08-0 Absolute Lymph 0.37 X10 3/uL Low 0.83-4.51 [facility] Comment on above: Performed By: #### L 100.0100, L500.2500 ####[facility] [address] [place], [address] Absolute Neut 11.2 X10 3/uL High 2.0-7.7 [facility] Comment on above: Performed By: #### L 100.0100, L500.2500 ####[facility] [address] [place], [address] Basophils/100 WBC (Bld) 0.0 % Normal 0-1 [facility] Comment on above: Performed By: #### L 100.0100, L500.2500 ####[facility] [address] [place], [address] Eosinophils/100 WBC (Bld) 0.1 % Normal 0-5 [facility] Comment on above: Performed By: #### L 100.0100, L500.2500 ####[facility] [address] [place], [address] Erythrocyte distribution width (RBC) [Ratio] 16.8 % High 11.6-14.6 [facility] Comment on above: Performed By: #### L 100.0100, L500.2500 ####[facility] [address] [place], [address] Hematocrit (Bld) [Volume fraction] 21.4 % Low 40-54 [facility] Comment on above: Performed By: #### L 100.0100, L500.2500 ####[facility] [address] [place], [address] Hemoglobin (Bld) [Mass/Vol] 6.6 g/dL Low 13.0-16.5 [facility] Comment on above: Performed By: #### L 100.0100, L500.2500 ####[facility] [address] [place], [address] IG% 1.100 High 0.0-0.9 [facility] Comment on above: Result Comment: IG% - Immature Granulocytes (promyelocytes, myelocytes andmetamyelocytes) > 1% indicates that a LEFT SHIFT is Present. Performed By: #### L 100.0100, L500.2500 ####[facility] [address] [place], [address] Lymphocytes/100 WBC (Bld) 3.0 % Low 19-41 [facility] Comment on above: Performed By: #### L 100.0100, L500.2500 ####[facility] [address] [place], [address] MCH (RBC) [Entitic mass] 27.5 pg Normal 27.0-32.0 [facility] Comment on above: Performed By: #### L 100.0100, L500.2500 ####[facility] [address] [place], [address] MCHC (RBC) [Mass/Vol] 30.8 g/dL Low 32-36 [facility] Comment on above: Performed By: #### L 100.0100, L500.2500 ####[facility] [address] [place], [address] MCV (RBC) [Entitic vol] 89.2 fL Normal 80-94 [facility] Comment on above: Performed By: #### L 100.0100, L500.2500 ####[facility] [address] [place], [address] Monocytes/100 WBC (Bld) 5.0 % Normal 0-10 [facility] Comment on above: Performed By: #### L 100.0100, L500.2500 ####[facility] [address] [place], [address] Neutrophils/100 WBC (Bld) 90.8 % High 47-70 [facility] Comment on above: Performed By: #### L 100.0100, L500.2500 ####[facility] [address] [place], [address] Nucleated RBC (Bld) [#/Vol] 0.5 10*3/uL Normal 0-5 [facility] Comment on above: Performed By: #### L 100.0100, L500.2500 ####[facility] [address] [place], [address] Platelet mean volume (Bld) [Entitic vol] 9.7 fL Normal 6.2-12.0 [facility] Comment on above: Performed By: #### L 100.0100, L500.2500 ####[facility] [address] [place], [address] Platelets (Bld) [#/Vol] 182 10*3/uL Normal 150-450 [facility] Comment on above: Performed By: #### L 100.0100, L500.2500 ####[facility] [address] [place], [address] RBC (Bld) [#/Vol] 2.40 10*6/uL Low 4.6-6.2 [facility] Comment on above: Performed By: #### L 100.0100, L500.2500 ####[facility] [address] [place], [address] RDW SD 51.9 fl High 35.1-43.9 [facility] Comment on above: Performed By: #### L 100.0100, L500.2500 ####[facility] [address] [place], [address] WBC (Bld) [#/Vol] 12.3 10*3/uL High 4.4-11.0 [facility] Comment on above: Performed By: #### L 100.0100, L500.2500 ####[facility] [address] [place], [address] GI Bleed Scanon 10-09-2023 GI Bleed Scan Normal [facility] HH, Hemoglobin AND Hematocri ton 10-09-2023 Hematocrit (Bld) [Volume fraction] 30.3 % Low 40-54 [facility] Comment on above: Performed By: #### L 100.0600 ####[facility] [address] [place], [address] Hemoglobin (Bld) [Mass/Vol] 9.5 g/dL Low 13.0-16.5 [facility] Comment on above: Performed By: #### L 100.0600 ####[facility] [address] [place], [address] MR/PN.GIon 10-09-2023 MR/PN.GI Normal [facility] Type AND Screenon 10-09-2023 Ab SCREEN GEL Negative Normal [facility] Comment on above: Order Comment: CMV N EG? NNumber of units to transfuse: 2Is this product for anemia associated withhemoglobinopathy? NIs pt's Hgb is 10mmHg)? NIs this for PREOP anemia correction prior to anesthesia? NReason for Ordering Blood: ChronicIs there symptomatic anemia? Nargis the blood/blood products to be transfused? YIs the patient having/had surgery? NNWhen ReadyNYA Performed By: #### B RC, BTS ####[facility] [address] [place], [address] Basic Metabolic Profile (BMP )on 10-08-2023 BUN/CRE 38.6 RATIO High 10-20 [facility] Comment on above: Performed By: #### L 500.2500, L100.0100 ####[facility] [address] [place], [address] CA,Total 7.3 mg/dL Low 8.5-10.1 [facility] Comment on above: Performed By: #### L 500.2500, L100.0100 ####[facility] [address] [place], [address] Chloride [Moles/Vol] 110 mmol/L High 98-107 [facility] Comment on above: Performed By: #### L 500.2500, L100.0100 ####[facility] [address] [place], [address] CO2 [Moles/Vol] 25.0 mmol/L Normal 21.0-32.0 [facility] Comment on above: Performed By: #### L 500.2500, L100.0100 ####[facility] [address] [place], [address] Creatinine [Mass/Vol] 1.14 mg/dL Normal 0.70-1.30 [facility] Comment on above: Result Comment: The validity of the calculated GFR GFRAA in patients over70 years has not been determined. Clinical correlation isessential. Performed By: #### L 500.2500, L100.0100 ####[facility] [address] [place], [address] ECRCL 54.13 ml/min Normal [facility] Comment on above: Performed By: #### L 500.2500, L100.0100 ####[facility] [address] [place], [address] EST GFR - AA 79 mL/min Normal >60 [facility] Comment on above: Result Comment: Afri can [place] GFR Calc Performed By: #### L 500.2500, L100.0100 ####[facility] [address] [place], [address] GAP 7 Normal 5-15 [facility] Comment on above: Performed By: #### L 500.2500, L100.0100 ####[facility] [address] [place], [address] GFR/1.73 sq M.predicted among non-blacks MDRD (S/P/Bld) [Vol rate/Area] 66 mL/min/{1.73_m2} Normal >60 [facility] Comment on above: Result Comment: Non- GFR Calc Performed By: #### L 500.2500, L100.0100 ####[facility] [address] [place], [address] Glucose [Mass/Vol] 101 mg/dL Normal 74-106 [facility] Comment on above: Result Comment: Fast ing Glucose result from 100 to 125 mg/dLsuggests IMPAIRED HOMEOSTASIS per A.D.A. criteria. Performed By: #### L 500.2500, L100.0100 ####[facility] [address] [place], [address] Potassium [Moles/Vol] 3.5 mmol/L Normal 3.5-5.1 [facility] Comment on above: Performed By: #### L 500.2500, L100.0100 ####[facility] [address] [place], [address] Sodium [Moles/Vol] 142 mmol/L Normal 136-145 [facility] Comment on above: Performed By: #### L 500.2500, L100.0100 ####[facility] [address] [place], [address] Urea nitrogen [Mass/Vol] 44 mg/dL High 7-18 [facility] Comment on above: Performed By: #### L 500.2500, L100.0100 ####[facility] [address] [place], [address] CBC W/Diff, Automatedon 08-0 8-4 Absolute Lymph 0.41 X10 3/uL Low 0.83-4.51 [facility] Comment on above: Performed By: #### L 500.2500, L100.0100 ####[facility] [address] [place], [address] Absolute Neut 14.8 X10 3/uL High 2.0-7.7 [facility] Comment on above: Performed By: #### L 500.2500, L100.0100 ####[facility] [address] [place], [address] Basophils/100 WBC (Bld) 0.0 % Normal 0-1 [facility] Comment on above: Performed By: #### L 500.2500, L100.0100 ####[facility] [address] [place], [address] Eosinophils/100 WBC (Bld) 0.0 % Normal 0-5 [facility] Comment on above: Performed By: #### L 500.2500, L100.0100 ####[facility] [address] [place], [address] Erythrocyte distribution width (RBC) [Ratio] 17.1 % High 11.6-14.6 [facility] Comment on above: Performed By: #### L 500.2500, L100.0100 ####[facility] [address] [place], [address] Hematocrit (Bld) [Volume fraction] 26.0 % Low 40-54 [facility] Comment on above: Performed By: #### L 500.2500, L100.0100 ####[facility] [address] [place], [address] Hemoglobin (Bld) [Mass/Vol] 8.3 g/dL Low 13.0-16.5 [facility] Comment on above: Performed By: #### L 500.2500, L100.0100 ####[facility] [address] [place], [address] IG% 1.100 High 0.0-0.9 [facility] Comment on above: Result Comment: IG% - Immature Granulocytes (promyelocytes, myelocytes andmetamyelocytes) > 1% indicates that a LEFT SHIFT is Present. Performed By: #### L 500.2500, L100.0100 ####[facility] [address] [place], [address] Lymphocytes/100 WBC (Bld) 2.5 % Low 19-41 [facility] Comment on above: Performed By: #### L 500.2500, L100.0100 ####[facility] [address] [place], [address] MCH (RBC) [Entitic mass] 27.8 pg Normal 27.0-32.0 [facility] Comment on above: Performed By: #### L 500.2500, L100.0100 ####[facility] [address] [place], [address] MCHC (RBC) [Mass/Vol] 31.9 g/dL Low 32-36 [facility] Comment on above: Performed By: #### L 500.2500, L100.0100 ####[facility] [address] [place], [address] MCV (RBC) [Entitic vol] 87.0 fL Normal 80-94 [facility] Comment on above: Performed By: #### L 500.2500, L100.0100 ####[facility] [address] [place], [address] Monocytes/100 WBC (Bld) 5.9 % Normal 0-10 [facility] Comment on above: Performed By: #### L 500.2500, L100.0100 ####[facility] [address] [place], [address] Neutrophils/100 WBC (Bld) 90.5 % High 47-70 [facility] Comment on above: Performed By: #### L 500.2500, L100.0100 ####[facility] [address] [place], [address] Nucleated RBC (Bld) [#/Vol] 0.9 10*3/uL Normal 0-5 [facility] Comment on above: Performed By: #### L 500.2500, L100.0100 ####[facility] [address] [place], [address] Platelet mean volume (Bld) [Entitic vol] 9.6 fL Normal 6.2-12.0 [facility] Comment on above: Performed By: #### L 500.2500, L100.0100 ####[facility] [address] [place], [address] Platelets (Bld) [#/Vol] 208 10*3/uL Normal 150-450 [facility] Comment on above: Performed By: #### L 500.2500, L100.0100 ####[facility] [address] [place], [address] RBC (Bld) [#/Vol] 2.99 10*6/uL Low 4.6-6.2 [facility] Comment on above: Performed By: #### L 500.2500, L100.0100 ####[facility] [address] [place], [address] RDW SD 52.0 fl High 35.1-43.9 [facility] Comment on above: Performed By: #### L 500.2500, L100.0100 ####[facility] [address] [place], [address] WBC (Bld) [#/Vol] 16.3 10*3/uL High 4.4-11.0 [facility] Comment on above: Performed By: #### L 500.2500, L100.0100 ####[facility] [address] [place], [address] MR/PN.GIon 10-08-2023 MR/PN.GI Normal [facility] Vancomycin, Trough Levelon 0 10-08-2023 VANCO, TROUGH 15.6 ug/mL High 5.0-15.0 [facility] Comment on above: Order Comment: Comme nts: Trough to be drawn 30 mins prior to scheduled dose Result Comment: VANC OMYCIN STANDARED DRUG THERAPY TROUGH LEVEL: 5.0 - 15.0 mg/LVANCOMYCIN HIGH INTENSITY THERAPY TROUGH LEVEL: 15.0 - 20.0 mg/LHigh Intensity therapy recommended for serious lifethreatening infections include:- Wcnuotuznc-Tzbgbxknujnk-Eqnrhaufi (Ventilator/Healtcare Associated)-SepsisPLEASE CONTACT PHARMACY SERVICES (#2247) FOR INTERPRETATIONOF RESULTS. Performed By: #### L 501.8820 ####[facility] [address] [place], [address] Basic Metabolic Profile (BMP )on 10-07-2023 BUN/CRE 32.9 RATIO High 10-20 [facility] Comment on above: Order Comment: 'TROP ' Serial specimen #1, #2 or #3: 1 Performed By: #### L 500.2500, L501.5200, L501.4020 ####[facility] [address] [place], [address] CA,Total 7.4 mg/dL Low 8.5-10.1 [facility] Comment on above: Order Comment: 'TROP ' Serial specimen #1, #2 or #3: 1 Performed By: #### L 500.2500, L501.5200, L501.4020 ####[facility] [address] [place], [address] Chloride [Moles/Vol] 108 mmol/L High 98-107 [facility] Comment on above: Order Comment: 'TROP ' Serial specimen #1, #2 or #3: 1 Performed By: #### L 500.2500, L501.5200, L501.4020 ####[facility] [address] [place], [address] CO2 [Moles/Vol] 23.0 mmol/L Normal 21.0-32.0 [facility] Comment on above: Order Comment: 'TROP ' Serial specimen #1, #2 or #3: 1 Performed By: #### L 500.2500, L501.5200, L501.4020 ####[facility] [address] [place], [address] Creatinine [Mass/Vol] 1.46 mg/dL High 0.70-1.30 [facility] Comment on above: Order Comment: 'TROP ' Serial specimen #1, #2 or #3: 1 Result Comment: The validity of the calculated GFR GFRAA in patients over70 years has not been determined. Clinical correlation isessential. Performed By: #### L 500.2500, L501.5200, L501.4020 ####[facility] [address] [place], [address] ECRCL 42.26 ml/min Normal [facility] Comment on above: Order Comment: 'TROP ' Serial specimen #1, #2 or #3: 1 Performed By: #### L 500.2500, L501.5200, L501.4020 ####[facility] [address] [place], [address] EST GFR - AA 60 mL/min Normal >60 [facility] Comment on above: Order Comment: 'TROP ' Serial specimen #1, #2 or #3: 1 Result Comment: Afri can Wallisian GFR Calc Performed By: #### L 500.2500, L501.5200, L501.4020 ####[facility] [address] [place], [address] GAP 11 Normal 5-15 [facility] Comment on above: Order Comment: 'TROP ' Serial specimen #1, #2 or #3: 1 Performed By: #### L 500.2500, L501.5200, L501.4020 ####[facility] [address] [place], [address] GFR/1.73 sq M.predicted among non-blacks MDRD (S/P/Bld) [Vol rate/Area] 49 mL/min/{1.73_m2} Low >60 [facility] Comment on above: Order Comment: 'TROP ' Serial specimen #1, #2 or #3: 1 Result Comment: Non- GFR Calc Performed By: #### L 500.2500, L501.5200, L501.4020 ####[facility] [address] [place], [address] Glucose [Mass/Vol] 152 mg/dL High 74-106 [facility] Comment on above: Order Comment: 'TROP ' Serial specimen #1, #2 or #3: 1 Result Comment: Fast ing Glucose result greater than or equal to 126 mg/dLsuggests DIABETES MELLITUS per A.D.A. criteria. Performed By: #### L 500.2500, L501.5200, L501.4020 ####[facility] [address] [place], [address] Potassium [Moles/Vol] 4.1 mmol/L Normal 3.5-5.1 [facility] Comment on above: Order Comment: 'TROP ' Serial specimen #1, #2 or #3: 1 Result Comment: Slig ht Hemolysis, Result may be falsely increased. Performed By: #### L 500.2500, L501.5200, L501.4020 ####[facility] [address] [place], [address] Sodium [Moles/Vol] 142 mmol/L Normal 136-145 [facility] Comment on above: Order Comment: 'TROP ' Serial specimen #1, #2 or #3: 1 Performed By: #### L 500.2500, L501.5200, L501.4020 ####[facility] [address] [place], [address] Urea nitrogen [Mass/Vol] 48 mg/dL High 7-18 [facility] Comment on above: Order Comment: 'TROP ' Serial specimen #1, #2 or #3: 1 Performed By: #### L 500.2500, L501.5200, L501.4020 ####[facility] [address] [place], [address] BUN Normal 7-18 [facility] Comment on above: Result Comment: Canc elled via OM: Order cancelled - Patient discharged Performed By: #### L 100.0100, L500.2500 ####[facility] [address] [place], [address] BUN/CRE Normal 10-20 [facility] Comment on above: Result Comment: Canc elled via OM: Order cancelled - Patient discharged Performed By: #### L 100.0100, L500.2500 ####[facility] [address] [place], [address] CA,Total Normal 8.5-10.1 [facility] Comment on above: Result Comment: Canc elled via OM: Order cancelled - Patient discharged Performed By: #### L 100.0100, L500.2500 ####[facility] [address] [place], [address] CL Normal 98-107 [facility] Comment on above: Result Comment: Canc elled via OM: Order cancelled - Patient discharged Performed By: #### L 100.0100, L500.2500 ####[facility] [address] [place], [address] CO2 Normal 21.0-32.0 [facility] Comment on above: Result Comment: Canc elled via OM: Order cancelled - Patient discharged Performed By: #### L 100.0100, L500.2500 ####[facility] [address] [place], [address] CREAT,SERUM Normal 0.70-1.30 [facility] Comment on above: Result Comment: Canc elled via OM: Order cancelled - Patient discharged Performed By: #### L 100.0100, L500.2500 ####[facility] [address] [place], [address] EST GFR Normal >60 [facility] Comment on above: Result Comment: Canc elled via OM: Order cancelled - Patient discharged Performed By: #### L 100.0100, L500.2500 ####[facility] [address] [place], [address] EST GFR - AA Normal >60 [facility] Comment on above: Result Comment: Canc elled via OM: Order cancelled - Patient discharged Performed By: #### L 100.0100, L500.2500 ####[facility] [address] [place], [address] GAP Normal 5-15 [facility] Comment on above: Result Comment: Canc elled via OM: Order cancelled - Patient discharged Performed By: #### L 100.0100, L500.2500 ####[facility] [address] [place], [address] GLU Normal 74-106 [facility] Comment on above: Result Comment: Canc elled via OM: Order cancelled - Patient discharged Performed By: #### L 100.0100, L500.2500 ####[facility] [address] [place], [address] Potassium Normal 3.5-5.1 [facility] Comment on above: Result Comment: Canc elled via OM: Order cancelled - Patient discharged Performed By: #### L 100.0100, L500.2500 ####[facility] [address] [place], [address] Basic Metabolic Profile (BMP) Normal 136-145 [facility] Comment on above: Result Comment: Canc elled via OM: Order cancelled - Patient discharged Performed By: #### L 100.0100, L500.2500 ####[facility] [address] [place], [address] CBC W/Diff, Automatedon 08-0 PATH REV Reviewed Normal [facility] Comment on above: Result Comment: Neut rophilic leukocytosis with left shift.Normocytic anemia.Clinical correlation necessary.Timbo Arguelles M.D. 10/07/23 AMENDED REPORT 10/07/23 7088 PATH REV previously reported as: June foll Performed By: #### L 100.0100 ####[facility] [address] [place], [address] PATH REV Reviewed Normal [facility] Comment on above: Result Comment: Neut rophilic leukocytosis.Normocytic anemia.Clinical correlation necessary.Timbo Arguelles M.D. 10/07/23 AMENDED REPORT 10/07/23 7857 PATH REV previously reported as: June foll Performed By: #### L 100.0100 ####[facility] [address] [place], [address] Absolute Neut Normal 2.0-7.7 [facility] Comment on above: Result Comment: Canc elled via OM: Order cancelled - Patient discharged Performed By: #### L 100.0100, L500.2500 ####[facility] [address] [place], [address] HCT Normal 40-54 [facility] Comment on above: Result Comment: Canc elled via OM: Order cancelled - Patient discharged Performed By: #### L 100.0100, L500.2500 ####[facility] [address] [place], [address] HGB Normal 13.0-16.5 [facility] Comment on above: Result Comment: Canc elled via OM: Order cancelled - Patient discharged Performed By: #### L 100.0100, L500.2500 ####[facility] [address] [place], [address] MCH Normal 27.0-32.0 [facility] Comment on above: Result Comment: Canc elled via OM: Order cancelled - Patient discharged Performed By: #### L 100.0100, L500.2500 ####[facility] [address] [place], [address] MCHC Normal 32-36 [facility] Comment on above: Result Comment: Canc elled via OM: Order cancelled - Patient discharged Performed By: #### L 100.0100, L500.2500 ####[facility] [address] [place], [address] MCV Normal 80-94 [facility] Comment on above: Result Comment: Canc elled via OM: Order cancelled - Patient discharged Performed By: #### L 100.0100, L500.2500 ####[facility] [address] [place], [address] NEUT% Normal 47-70 [facility] Comment on above: Result Comment: Canc elled via OM: Order cancelled - Patient discharged Performed By: #### L 100.0100, L500.2500 ####[facility] [address] [place], [address] PLT Normal 150-450 [facility] Comment on above: Result Comment: Canc elled via OM: Order cancelled - Patient discharged Performed By: #### L 100.0100, L500.2500 ####[facility] [address] [place], [address] RBC Normal 4.6-6.2 [facility] Comment on above: Result Comment: Canc elled via OM: Order cancelled - Patient discharged Performed By: #### L 100.0100, L500.2500 ####[facility] [address] [place], [address] RDW CV Normal 11.6-14.6 [facility] Comment on above: Result Comment: Canc elled via OM: Order cancelled - Patient discharged Performed By: #### L 100.0100, L500.2500 ####[facility] [address] [place], [address] RDW SD Normal 35.1-43.9 [facility] Comment on above: Result Comment: Canc elled via OM: Order cancelled - Patient discharged Performed By: #### L 100.0100, L500.2500 ####[facility] [address] [place], [address] WBC Normal 4.4-11.0 [facility] Comment on above: Result Comment: Canc elled via OM: Order cancelled - Patient discharged Performed By: #### L 100.0100, L500.2500 ####[facility] [address] [place], [address] Colonoscopy Reporton 024 Colonoscopy Report Normal [facility] EGD Reporton 10-07-2023 EGD Report Normal [facility] L501.4020on 10-07-2023 TROPONIN-I HS 78 pg/mL Normal 3.0-78.0 [facility] Comment on above: Order Comment: 'TROP ' Serial specimen #1, #2 or #3: 1 Result Comment: Luz tejada Note: New Test Units and Gender Specific Reference Ranges. For more information see Policy Stat Procedure [place] High Sensitivity Troponin (TNIH) and attachments. Performed By: #### L 500.2500, L501.5200, L501.4020 ####[facility] [address] [place], [address] MR/POSTOP.ANEon 10-07-2023 MR/POSTOP.ANE Normal [facility] MR/QKMLCBGM2hj 10-07-2023 MR/POSTOPAN2 Normal [facility] Magnesiumon 10-07-2023 Magnesium [Mass/Vol] 2.0 mg/dL Normal 1.6-2.6 [facility] Comment on above: Order Comment: 'TROP ' Serial specimen #1, #2 or #3: 1 Result Comment: Slig ht Hemolysis, Result may be falsely increased. Performed By: #### L 500.2500, L501.5200, L501.4020 ####[facility] [address] [place], [address] Ova and Parasites 8623on OP Normal [facility] Comment on above: Performed By: #### M 600.5000 ####[facility] [address] [place], [address] Phosphoruson 10-07-2023 Phosphate [Mass/Vol] 6.8 mg/dL High 2.5-4.9 [facility] Comment on above: Performed By: #### L 501.2300 ####[facility] [address] [place], [address] Surgery Specimen Level Siva 10-07-2023 Surgery Specimen Level IV Normal [facility] Comment on above: Performed By: #### P SUIV ####[facility] [address] [place], [address] Urine Cultureon 10-07-2023 URC Culture exhibits no growth. Normal [facility] Comment on above: Performed By: #### M 100.2200 ####[facility] [address] [place], [address] Vancomycin, Trough Levelon 0 10-07-2023 VANCO, TROUGH 18.6 ug/mL High 5.0-15.0 [facility] Comment on above: Order Comment: Comme nts: Trough to be drawn 30 mins prior to scheduled [id number] Result Comment: VANC OMYCIN STANDARED DRUG THERAPY TROUGH LEVEL: 5.0 - 15.0 mg/LVANCOMYCIN HIGH INTENSITY THERAPY TROUGH LEVEL: 15.0 - 20.0 mg/LHigh Intensity therapy recommended for serious lifethreatening infections include:- Ysvtaqgivm-Qocitsjrxhjv-Cugddyhdv (Ventilator/Healtcare Associated)-SepsisPLEASE CONTACT PHARMACY SERVICES (#9395) FOR INTERPRETATIONOF RESULTS. Performed By: #### L 501.8820 ####[facility] [address] [place], [address] 12 Lead EKGon 10-06-2023 12 Lead EKG Normal [facility] BNP,B-Type NATRIURETIC PEPTI Vannessa 10-06-2023 Natriuretic peptide B (Bld) [Mass/Vol] 75.9 pg/mL Normal 0-100 [facility] Comment on above: Performed By: #### L 503.6620 ####[facility] [address] [place], [address] BRCon 10-06-2023 RC Normal [facility] Comment on above: Result Comment: [id number] ON RC TRANSFUSED 10/07/23 0138 Performed By: #### B RC ####[facility] [address] [place], [address] Result Comment: [id number] ON RC TRANSFUSED 10/06/23 [id number] ON RC TRANSFUSED 10/06/23 1210 Performed By: #### B EARLENE, BTS ####[facility] [address] [place], [address] Basic Metabolic Profile (BMP )on 10-06-2023 BUN Normal 7-18 [facility] Comment on above: Result Comment: Canc elled via OM: Order cancelled - Patient discharged Performed By: #### L 100.0100, L500.2500 ####[facility] [address] [place], [address] BUN/CRE Normal 10-20 [facility] Comment on above: Result Comment: Canc elled via OM: Order cancelled - Patient discharged Performed By: #### L 100.0100, L500.2500 ####[facility] [address] [place], [address] CA,Total Normal 8.5-10.1 [facility] Comment on above: Result Comment: Canc elled via OM: Order cancelled - Patient discharged Performed By: #### L 100.0100, L500.2500 ####[facility] [address] [place], [address] CL Normal 98-107 [facility] Comment on above: Result Comment: Canc elled via OM: Order cancelled - Patient discharged Performed By: #### L 100.0100, L500.2500 ####[facility] [address] [place], [address] CO2 Normal 21.0-32.0 [facility] Comment on above: Result Comment: Canc elled via OM: Order cancelled - Patient discharged Performed By: #### L 100.0100, L500.2500 ####[facility] [address] [place], [address] CREAT,SERUM Normal 0.70-1.30 [facility] Comment on above: Result Comment: Canc elled via OM: Order cancelled - Patient discharged Performed By: #### L 100.0100, L500.2500 ####[facility] [address] [place], [address] EST GFR Normal >60 [facility] Comment on above: Result Comment: Canc elled via OM: Order cancelled - Patient discharged Performed By: #### L 100.0100, L500.2500 ####[facility] [address] [place], [address] EST GFR - AA Normal >60 [facility] Comment on above: Result Comment: Canc elled via OM: Order cancelled - Patient discharged Performed By: #### L 100.0100, L500.2500 ####[facility] [address] [place], [address] GAP Normal 5-15 [facility] Comment on above: Result Comment: Canc elled via OM: Order cancelled - Patient discharged Performed By: #### L 100.0100, L500.2500 ####[facility] [address] [place], [address] GLU Normal 74-106 [facility] Comment on above: Result Comment: Canc elled via OM: Order cancelled - Patient discharged Performed By: #### L 100.0100, L500.2500 ####[facility] [address] [place], [address] Potassium Normal 3.5-5.1 [facility] Comment on above: Result Comment: Canc elled via OM: Order cancelled - Patient discharged Performed By: #### L 100.0100, L500.2500 ####[facility] [address] [place], [address] Basic Metabolic Profile (BMP) Normal 136-145 [facility] Comment on above: Result Comment: Canc elled via OM: Order cancelled - Patient discharged Performed By: #### L 100.0100, L500.2500 ####[facility] [address] [place], [address] BUN/CRE 29.5 RATIO High 10-20 [facility] Comment on above: Performed By: #### L 100.0100, L500.2500 ####[facility] [address] [place], [address] CA,Total 8.4 mg/dL Low 8.5-10.1 [facility] Comment on above: Performed By: #### L 100.0100, L500.2500 ####[facility] [address] [place], [address] Chloride [Moles/Vol] 106 mmol/L Normal 98-107 [facility] Comment on above: Performed By: #### L 100.0100, L500.2500 ####[facility] [address] [place], [address] CO2 [Moles/Vol] 28.0 mmol/L Normal 21.0-32.0 [facility] Comment on above: Performed By: #### L 100.0100, L500.2500 ####[facility] [address] [place], [address] Creatinine [Mass/Vol] 1.22 mg/dL Normal 0.70-1.30 [facility] Comment on above: Result Comment: The validity of the calculated GFR GFRAA in patients over70 years has not been determined. Clinical correlation isessential. Performed By: #### L 100.0100, L500.2500 ####[facility] [address] [place], [address] ECRCL 50.58 ml/min Normal [facility] Comment on above: Performed By: #### L 100.0100, L500.2500 ####[facility] [address] [place], [address] EST GFR - AA 73 mL/min Normal >60 [facility] Comment on above: Result Comment: Afri can [place] GFR Calc Performed By: #### L 100.0100, L500.2500 ####[facility] [address] [place], [address] GAP 4 Low 5-15 [facility] Comment on above: Performed By: #### L 100.0100, L500.2500 ####[facility] [address] [place], [address] GFR/1.73 sq M.predicted among non-blacks MDRD (S/P/Bld) [Vol rate/Area] 61 mL/min/{1.73_m2} Normal >60 [facility] Comment on above: Result Comment: Non- GFR Calc Performed By: #### L 100.0100, L500.2500 ####[facility] [address] [place], [address] Glucose [Mass/Vol] 166 mg/dL High 74-106 [facility] Comment on above: Result Comment: Fast ing Glucose result greater than or equal to 126 mg/dLsuggests DIABETES MELLITUS per A.D.A. criteria. Performed By: #### L 100.0100, L500.2500 ####[facility] [address] [place], [address] Potassium [Moles/Vol] 4.5 mmol/L Normal 3.5-5.1 [facility] Comment on above: Performed By: #### L 100.0100, L500.2500 ####[facility] [address] [place], [address] Sodium [Moles/Vol] 138 mmol/L Normal 136-145 [facility] Comment on above: Performed By: #### L 100.0100, L500.2500 ####[facility] [address] [place], [address] Urea nitrogen [Mass/Vol] 36 mg/dL High 7-18 [facility] Comment on above: Performed By: #### L 100.0100, L500.2500 ####[facility] [address] [place], [address] CBC W/Diff, Automatedon 08-0 6-2024 Absolute Lymph 0.40 X10 3/uL Low 0.83-4.51 [facility] Comment on above: Performed By: #### L 100.0100 ####[facility] [address] [place], [address] Absolute Neut 12.6 X10 3/uL High 2.0-7.7 [facility] Comment on above: Performed By: #### L 100.0100 ####[facility] [address] [place], [address] Basophils/100 WBC (Bld) 0.1 % Normal 0-1 [facility] Comment on above: Performed By: #### L 100.0100 ####[facility] [address] [place], [address] Eosinophils/100 WBC (Bld) 0.0 % Normal 0-5 [facility] Comment on above: Performed By: #### L 100.0100 ####[facility] [address] [place], [address] Erythrocyte distribution width (RBC) [Ratio] 17.1 % High 11.6-14.6 [facility] Comment on above: Performed By: #### L 100.0100 ####[facility] [address] [place], [address] Hematocrit (Bld) [Volume fraction] 25.3 % Low 40-54 [facility] Comment on above: Performed By: #### L 100.0100 ####[facility] [address] [place], [address] Hemoglobin (Bld) [Mass/Vol] 7.8 g/dL Low 13.0-16.5 [facility] Comment on above: Performed By: #### L 100.0100 ####[facility] [address] [place], [address] IG% 1.700 High 0.0-0.9 [facility] Comment on above: Result Comment: IG% - Immature Granulocytes (promyelocytes, myelocytes andmetamyelocytes) > 1% indicates that a LEFT SHIFT is Present. Performed By: #### L 100.0100 ####[facility] [address] [place], [address] Lymphocytes/100 WBC (Bld) 2.9 % Low 19-41 [facility] Comment on above: Performed By: #### L 100.0100 ####[facility] [address] [place], [address] MCH (RBC) [Entitic mass] 26.2 pg Low 27.0-32.0 [facility] Comment on above: Performed By: #### L 100.0100 ####[facility] [address] [place], [address] MCHC (RBC) [Mass/Vol] 30.8 g/dL Low 32-36 [facility] Comment on above: Performed By: #### L 100.0100 ####[facility] [address] [place], [address] MCV (RBC) [Entitic vol] 84.9 fL Normal 80-94 [facility] Comment on above: Performed By: #### L 100.0100 ####[facility] [address] [place], [address] Monocytes/100 WBC (Bld) 4.5 % Normal 0-10 [facility] Comment on above: Performed By: #### L 100.0100 ####[facility] [address] [place], [address] Neutrophils/100 WBC (Bld) 90.8 % High 47-70 [facility] Comment on above: Performed By: #### L 100.0100 ####[facility] [address] [place], [address] Nucleated RBC (Bld) [#/Vol] 1.2 10*3/uL Normal 0-5 [facility] Comment on above: Performed By: #### L 100.0100 ####[facility] [address] [place], [address] Platelet mean volume (Bld) [Entitic vol] 9.6 fL Normal 6.2-12.0 [facility] Comment on above: Performed By: #### L 100.0100 ####[facility] [address] [place], [address] Platelets (Bld) [#/Vol] 275 10*3/uL Normal 150-450 [facility] Comment on above: Performed By: #### L 100.0100 ####[facility] [address] [place], [address] RBC (Bld) [#/Vol] 2.98 10*6/uL Low 4.6-6.2 [facility] Comment on above: Performed By: #### L 100.0100 ####[facility] [address] [place], [address] RDW SD 51.7 fl High 35.1-43.9 [facility] Comment on above: Performed By: #### L 100.0100 ####[facility] [address] [place], [address] WBC (Bld) [#/Vol] 13.9 10*3/uL High 4.4-11.0 [facility] Comment on above: Performed By: #### L 100.0100 ####[facility] [address] [place], [address] Absolute Lymph 0.37 X10 3/uL Low 0.83-4.51 [facility] Comment on above: Performed By: #### L 100.0100 ####[facility] [address] [place], [address] Absolute Neut 12.7 X10 3/uL High 2.0-7.7 [facility] Comment on above: Performed By: #### L 100.0100 ####[facility] [address] [place], [address] Basophils/100 WBC (Bld) 0.1 % Normal 0-1 [facility] Comment on above: Performed By: #### L 100.0100 ####[facility] [address] [place], [address] Eosinophils/100 WBC (Bld) 0.0 % Normal 0-5 [facility] Comment on above: Performed By: #### L 100.0100 ####[facility] [address] [place], [address] Erythrocyte distribution width (RBC) [Ratio] 16.8 % High 11.6-14.6 [facility] Comment on above: Performed By: #### L 100.0100 ####[facility] [address] [place], [address] Hematocrit (Bld) [Volume fraction] 26.5 % Low 40-54 [facility] Comment on above: Performed By: #### L 100.0100 ####[facility] [address] [place], [address] Hemoglobin (Bld) [Mass/Vol] 8.3 g/dL Low 13.0-16.5 [facility] Comment on above: Performed By: #### L 100.0100 ####[facility] [address] [place], [address] IG% 1.800 High 0.0-0.9 [facility] Comment on above: Result Comment: IG% - Immature Granulocytes (promyelocytes, myelocytes andmetamyelocytes) > 1% indicates that a LEFT SHIFT is Present. Performed By: #### L 100.0100 ####[facility] [address] [place], [address] Lymphocytes/100 WBC (Bld) 2.7 % Low 19-41 [facility] Comment on above: Performed By: #### L 100.0100 ####[facility] [address] [place], [address] MCH (RBC) [Entitic mass] 26.8 pg Low 27.0-32.0 [facility] Comment on above: Performed By: #### L 100.0100 ####[facility] [address] [place], [address] MCHC (RBC) [Mass/Vol] 31.3 g/dL Low 32-36 [facility] Comment on above: Performed By: #### L 100.0100 ####[facility] [address] [place], [address] MCV (RBC) [Entitic vol] 85.5 fL Normal 80-94 [facility] Comment on above: Performed By: #### L 100.0100 ####[facility] [address] [place], [address] Monocytes/100 WBC (Bld) 2.1 % Normal 0-10 [facility] Comment on above: Performed By: #### L 100.0100 ####[facility] [address] [place], [address] Neutrophils/100 WBC (Bld) 93.3 % High 47-70 [facility] Comment on above: Performed By: #### L 100.0100 ####[facility] [address] [place], [address] Nucleated RBC (Bld) [#/Vol] 0.9 10*3/uL Normal 0-5 [facility] Comment on above: Performed By: #### L 100.0100 ####[facility] [address] [place], [address] Platelet mean volume (Bld) [Entitic vol] 9.7 fL Normal 6.2-12.0 [facility] Comment on above: Performed By: #### L 100.0100 ####[facility] [address] [place], [address] Platelets (Bld) [#/Vol] 277 10*3/uL Normal 150-450 [facility] Comment on above: Performed By: #### L 100.0100 ####[facility] [address] [place], [address] RBC (Bld) [#/Vol] 3.10 10*6/uL Low 4.6-6.2 [facility] Comment on above: Performed By: #### L 100.0100 ####[facility] [address] [place], [address] RDW SD 50.8 fl High 35.1-43.9 [facility] Comment on above: Performed By: #### L 100.0100 ####[facility] [address] [place], [address] WBC (Bld) [#/Vol] 13.6 10*3/uL High 4.4-11.0 [facility] Comment on above: Performed By: #### L 100.0100 ####[facility] [address] [place], [address] Absolute Neut Normal 2.0-7.7 [facility] Comment on above: Result Comment: Canc elled via OM: Order cancelled - Patient discharged Performed By: #### L 100.0100, L500.2500 ####[facility] [address] [place], [address] HCT Normal 40-54 [facility] Comment on above: Result Comment: Canc elled via OM: Order cancelled - Patient discharged Performed By: #### L 100.0100, L500.2500 ####[facility] [address] [place], [address] HGB Normal 13.0-16.5 [facility] Comment on above: Result Comment: Canc elled via OM: Order cancelled - Patient discharged Performed By: #### L 100.0100, L500.2500 ####[facility] [address] [place], [address] MCH Normal 27.0-32.0 [facility] Comment on above: Result Comment: Canc elled via OM: Order cancelled - Patient discharged Performed By: #### L 100.0100, L500.2500 ####[facility] [address] [place], [address] MCHC Normal 32-36 [facility] Comment on above: Result Comment: Canc elled via OM: Order cancelled - Patient discharged Performed By: #### L 100.0100, L500.2500 ####[facility] [address] [place], [address] MCV Normal 80-94 [facility] Comment on above: Result Comment: Canc elled via OM: Order cancelled - Patient discharged Performed By: #### L 100.0100, L500.2500 ####[facility] [address] [place], [address] NEUT% Normal 47-70 [facility] Comment on above: Result Comment: Canc elled via OM: Order cancelled - Patient discharged Performed By: #### L 100.0100, L500.2500 ####[facility] [address] [place], [address] PLT Normal 150-450 [facility] Comment on above: Result Comment: Canc elled via OM: Order cancelled - Patient discharged Performed By: #### L 100.0100, L500.2500 ####[facility] [address] [place], [address] RBC Normal 4.6-6.2 [facility] Comment on above: Result Comment: Canc elled via OM: Order cancelled - Patient discharged Performed By: #### L 100.0100, L500.2500 ####[facility] [address] [place], [address] RDW CV Normal 11.6-14.6 [facility] Comment on above: Result Comment: Canc elled via OM: Order cancelled - Patient discharged Performed By: #### L 100.0100, L500.2500 ####[facility] [address] [place], [address] RDW SD Normal 35.1-43.9 [facility] Comment on above: Result Comment: Canc elled via OM: Order cancelled - Patient discharged Performed By: #### L 100.0100, L500.2500 ####[facility] [address] [place], [address] WBC Normal 4.4-11.0 [facility] Comment on above: Result Comment: Canc elled via OM: Order cancelled - Patient discharged Performed By: #### L 100.0100, L500.2500 ####[facility] [address] [place], [address] Absolute Lymph 0.44 X10 3/uL Low 0.83-4.51 [facility] Comment on above: Performed By: #### L 100.0100, L500.2500 ####[facility] [address] [place], [address] Absolute Neut 19.1 X10 3/uL High 2.0-7.7 [facility] Comment on above: Performed By: #### L 100.0100, L500.2500 ####[facility] [address] [place], [address] Basophils/100 WBC (Bld) 0.1 % Normal 0-1 [facility] Comment on above: Performed By: #### L 100.0100, L500.2500 ####[facility] [address] [place], [address] Eosinophils/100 WBC (Bld) 0.0 % Normal 0-5 [facility] Comment on above: Performed By: #### L 100.0100, L500.2500 ####[facility] [address] [place], [address] Erythrocyte distribution width (RBC) [Ratio] 16.1 % High 11.6-14.6 [facility] Comment on above: Performed By: #### L 100.0100, L500.2500 ####[facility] [address] [place], [address] Hematocrit (Bld) [Volume fraction] 22.9 % Low 40-54 [facility] Comment on above: Performed By: #### L 100.0100, L500.2500 ####[facility] [address] [place], [address] Hemoglobin (Bld) [Mass/Vol] 6.7 g/dL Low 13.0-16.5 [facility] Comment on above: Performed By: #### L 100.0100, L500.2500 ####[facility] [address] [place], [address] IG% 1.400 High 0.0-0.9 [facility] Comment on above: Result Comment: IG% - Immature Granulocytes (promyelocytes, myelocytes andmetamyelocytes) > 1% indicates that a LEFT SHIFT is Present. Performed By: #### L 100.0100, L500.2500 ####[facility] [address] [place], [address] Lymphocytes/100 WBC (Bld) 2.2 % Low 19-41 [facility] Comment on above: Performed By: #### L 100.0100, L500.2500 ####[facility] [address] [place], [address] MCH (RBC) [Entitic mass] 26.3 pg Low 27.0-32.0 [facility] Comment on above: Performed By: #### L 100.0100, L500.2500 ####[facility] [address] [place], [address] MCHC (RBC) [Mass/Vol] 29.3 g/dL Low 32-36 [facility] Comment on above: Performed By: #### L 100.0100, L500.2500 ####[facility] [address] [place], [address] MCV (RBC) [Entitic vol] 89.8 fL Normal 80-94 [facility] Comment on above: Performed By: #### L 100.0100, L500.2500 ####[facility] [address] [place], [address] Monocytes/100 WBC (Bld) 1.4 % Normal 0-10 [facility] Comment on above: Performed By: #### L 100.0100, L500.2500 ####[facility] [address] [place], [address] Neutrophils/100 WBC (Bld) 94.9 % High 47-70 [facility] Comment on above: Performed By: #### L 100.0100, L500.2500 ####[facility] [address] [place], [address] Nucleated RBC (Bld) [#/Vol] 0.3 10*3/uL Normal 0-5 [facility] Comment on above: Performed By: #### L 100.0100, L500.2500 ####[facility] [address] [place], [address] Platelet mean volume (Bld) [Entitic vol] 9.7 fL Normal 6.2-12.0 [facility] Comment on above: Performed By: #### L 100.0100, L500.2500 ####[facility] [address] [place], [address] Platelets (Bld) [#/Vol] 294 10*3/uL Normal 150-450 [facility] Comment on above: Performed By: #### L 100.0100, L500.2500 ####[facility] [address] [place], [address] RBC (Bld) [#/Vol] 2.55 10*6/uL Low 4.6-6.2 [facility] Comment on above: Performed By: #### L 100.0100, L500.2500 ####[facility] [address] [place], [address] RDW SD 51.7 fl High 35.1-43.9 [facility] Comment on above: Performed By: #### L 100.0100, L500.2500 ####[facility] [address] [place] [place], [address] WBC (Bld) [#/Vol] 20.1 10*3/uL High 4.4-11.0 [facility] Comment on above: Performed By: #### L 100.0100, L500.2500 ####[facility] [address] [place], [address] CTA Abd/Pelvis W/WO Contrast on 10-06-2023 CTA Abd/Pelvis W/WO Contrast Normal [facility] Comprehensive Metabolic Prof ilon 10-06-2023 Albumin [Mass/Vol] 2.4 g/dL Low 3.2-5.0 [facility] Comment on above: Performed By: #### L 501.5200, L500.4050 ####[facility] [address] [place], [address] Albumin/Globulin [Mass ratio] 0.9 {ratio} Normal 0.9-2.4 [facility] Comment on above: Performed By: #### L 501.5200, L500.4050 ####[facility] [address] [place], [address] ALK P 54 U/L Normal 45-117 [facility] Comment on above: Performed By: #### L 501.5200, L500.4050 ####[facility] [address] [place], [address] ALT [Catalytic activity/Vol] 22 U/L Normal 16-61 [facility] Comment on above: Performed By: #### L 501.5200, L500.4050 ####[facility] [address] [place], [address] AST [Catalytic activity/Vol] 25 U/L Normal 15-37 [facility] Comment on above: Performed By: #### L 501.5200, L500.4050 ####[facility] [address] [place], [address] Bilirubin [Mass/Vol] 1.10 mg/dL High 0.20-1.00 [facility] Comment on above: Result Comment: For patients on eltrombopag therapy, use of Dimension [place] TBIL is not recommended. Performed By: #### L 501.5200, L500.4050 ####[facility] [address] [place], [address] BUN/CRE 29.4 RATIO High 10-20 [facility] Comment on above: Performed By: #### L 501.5200, L500.4050 ####[facility] [address] [place], [address] CA,Total 7.5 mg/dL Low 8.5-10.1 [facility] Comment on above: Performed By: #### L 501.5200, L500.4050 ####[facility] [address] [place], [address] Chloride [Moles/Vol] 111 mmol/L High 98-107 [facility] Comment on above: Performed By: #### L 501.5200, L500.4050 ####[facility] [address] [place], [address] CO2 [Moles/Vol] 23.0 mmol/L Normal 21.0-32.0 [facility] Comment on above: Performed By: #### L 501.5200, L500.4050 ####[facility] [address] [place], [address] Creatinine [Mass/Vol] 1.53 mg/dL High 0.70-1.30 [facility] Comment on above: Result Comment: The validity of the calculated GFR GFRAA in patients over70 years has not been determined. Clinical correlation isessential. Performed By: #### L 501.5200, L500.4050 ####[facility] [address] [place], [address] ECRCL 40.33 ml/min Normal [facility] Comment on above: Performed By: #### L 501.5200, L500.4050 ####[facility] [address] [place], [address] EST GFR - AA 56 mL/min Low >60 [facility] Comment on above: Result Comment: Afri can [place] GFR Calc Performed By: #### L 501.5200, L500.4050 ####[facility] [address] [place], [address] GAP 8 Normal 5-15 [facility] Comment on above: Performed By: #### L 501.5200, L500.4050 ####[facility] [address] [place], [address] GFR/1.73 sq M.predicted among non-blacks MDRD (S/P/Bld) [Vol rate/Area] 47 mL/min/{1.73_m2} Low >60 [facility] Comment on above: Result Comment: Non- GFR Calc Performed By: #### L 501.5200, L500.4050 ####[facility] [address] [place], [address] Globulin (S) [Mass/Vol] 2.6 g/dL Normal 2.2-4.2 [facility] Comment on above: Performed By: #### L 501.5200, L500.4050 ####[facility] [address] [place], [address] Glucose [Mass/Vol] 165 mg/dL High 74-106 [facility] Comment on above: Result Comment: Fast ing Glucose result greater than or equal to 126 mg/dLsuggests DIABETES MELLITUS per A.D.A. criteria. Performed By: #### L 501.5200, L500.4050 ####[facility] [address] [place], [address] Potassium [Moles/Vol] 4.7 mmol/L Normal 3.5-5.1 [facility] Comment on above: Performed By: #### L 501.5200, L500.4050 ####[facility] [address] [place], [address] Sodium [Moles/Vol] 142 mmol/L Normal 136-145 [facility] Comment on above: Performed By: #### L 501.5200, L500.4050 ####[facility] [address] [place], [address] T PROT 5.0 g/dL Low 6.4-8.2 [facility] Comment on above: Performed By: #### L 501.5200, L500.4050 ####[facility] [address] [place], [address] Urea nitrogen [Mass/Vol] 45 mg/dL High 7-18 [facility] Comment on above: Performed By: #### L 501.5200, L500.4050 ####[facility] [address] [place], [address] Consultation - Cardiologyon 10-06-2023 Consultation - Cardiology Normal [facility] Consultation - Intensiviston 10-06-2023 Consultation - Yarn Spooler Normal [facility] Consultation - Yarn Spooler Normal [facility] Echo Complete W/ Contraston 10-06-2023 Echo Complete W/ Contrast Normal [facility] Hemoglobinon 10-06-2023 Hemoglobin (Bld) [Mass/Vol] 6.5 g/dL Low 13.0-16.5 [facility] Comment on above: Performed By: #### L 100.1300 ####[facility] [address] [place], [address] L501.4020on 10-06-2023 TROPONIN-I HS 96 pg/mL High 3.0-78.0 [facility] Comment on above: Order Comment: Comme nts: SPECIMEN #3'TROP' Serial specimen #1, #2 or #3: 3 Result Comment: Plea se Note: New Test Units and Gender Specific Reference Ranges. For more information see Policy Stat Procedure [place] High Sensitivity Troponin (TNIH) and attachments. Performed By: #### L 501.4020 ####[facility] [address] [place], [address] TROPONIN-I HS 66 pg/mL Normal 3.0-78.0 [facility] Comment on above: Order Comment: Comme nts: SPECIMEN #2'TROP' Serial specimen #1, #2 or #3: 2 Result Comment: Plea se Note: New Test Units and Gender Specific Reference Ranges. For more information see Policy Stat Procedure [place] High Sensitivity Troponin (TNIH) and attachments. Performed By: #### L 501.4020 ####[facility] [address] [place], [address] TROPONIN-I HS 55 pg/mL Normal 3.0-78.0 [facility] Comment on above: Order Comment: 'TROP ' Serial specimen #1, #2 or #3: 1 Result Comment: Plea se Note: New Test Units and Gender Specific Reference Ranges. For more information see Policy Stat Procedure [place] High Sensitivity Troponin (TNIH) and attachments. Performed By: #### L 501.4020 ####[facility] [address] [place], [address] Lactic Acidon 10-06-2023 Lactate [Moles/Vol] 1.9 mmol/L Normal 0.4-1.9 [facility] Comment on above: Performed By: #### L 503.6005 ####[facility] [address] [place], [address] Lactate [Moles/Vol] 2.1 mmol/L Invalid Interpretation Code 0.4-1.9 [facility] Comment on above: Order Comment: Y Result Comment: Crit ical Result(s) Called at: 01:51:32 10/06/2023 by:Yina davis. Results read back by same. Performed By: #### L 503.6005 ####[facility] [address] [place], [address] M8200.1075on 10-06-2023 M8200.1075 Normal Reference Ran ge = Negative MRSA/SAUR WOUND PCR GeneXpert Instrument, PCR method MRSA PCR MRSA NEGATIVE STAPH. AUREUS PCR STAPH. AUREUS NEGATIVE Normal [facility] Comment on above: Performed By: #### M 8200.1075 ####[facility] [address] [place], [address] MR/CON.PCM.GIon 10-06-2023 MR/CON.PCM.GI Normal [facility] Magnesiumon 10-06-2023 Magnesium [Mass/Vol] 2.2 mg/dL Normal 1.6-2.6 [facility] Comment on above: Performed By: #### L 501.5200, L500.4050 ####[facility] [address] [place], [address] Phosphoruson 10-06-2023 Phosphate [Mass/Vol] 6.1 mg/dL High 2.5-4.9 [facility] Comment on above: Performed By: #### L 501.2300 ####[facility] [address] [place], [address] Type AND Screenon 10-06-2023 ABO and Rh group Nom (Bld) Blood group O Rh(D) negative Normal [facility] Comment on above: Order Comment: CMV N EG? NNumber of units to transfuse: 2Reason for Ordering Blood: AcuteAre the blood/blood products to be transfused? YIs the patient having/had surgery? NNWhen ReadyNYA Performed By: #### B RC, BTS ####[facility] [address] [place], [address] 12 Lead EKGon 10-05-2023 12 Lead EKG Normal [facility] BNP,B-Type NATRIURETIC PEPTI Vannessa 10-05-2023 Natriuretic peptide B (Bld) [Mass/Vol] 53.7 pg/mL Normal 0-100 [facility] Comment on above: Performed By: #### L 501.4020, L503.6620, L500.2500, L100.0100 ####[facility] [address] [place], [address] Basic Metabolic Profile (BMP )on 10-05-2023 BUN/CRE 32.7 RATIO High 10-20 [facility] Comment on above: Performed By: #### L 500.2500 ####[facility] [address] [place], [address] CA,Total 8.9 mg/dL Normal 8.5-10.1 [facility] Comment on above: Performed By: #### L 500.2500 ####[facility] [address] [place], [address] Chloride [Moles/Vol] 105 mmol/L Normal 98-107 [facility] Comment on above: Performed By: #### L 500.2500 ####[facility] [address] [place], [address] CO2 [Moles/Vol] 27.0 mmol/L Normal 21.0-32.0 [facility] Comment on above: Performed By: #### L 500.2500 ####[facility] [address] [place], [address] Creatinine [Mass/Vol] 1.01 mg/dL Normal 0.70-1.30 [facility] Comment on above: Result Comment: The validity of the calculated GFR GFRAA in patients over70 years has not been determined. Clinical correlation isessential. Performed By: #### L 500.2500 ####[facility] [address] [place], [address] ECRCL 61.09 ml/min Normal [facility] Comment on above: Performed By: #### L 500.2500 ####[facility] [address] [place], [address] EST GFR - AA 91 mL/min Normal >60 [facility] Comment on above: Result Comment: Afri can Wallisian GFR Calc Performed By: #### L 500.2500 ####[facility] [address] [place], [address] GAP 6 Normal 5-15 [facility] Comment on above: Performed By: #### L 500.2500 ####[facility] [address] [place], [address] GFR/1.73 sq M.predicted among non-blacks MDRD (S/P/Bld) [Vol rate/Area] 75 mL/min/{1.73_m2} Normal >60 [facility] Comment on above: Result Comment: Non- GFR Calc Performed By: #### L 500.2500 ####[facility] [address] [place], [address] Glucose [Mass/Vol] 87 mg/dL Normal 74-106 [facility] Comment on above: Performed By: #### L 500.2500 ####[facility] [address] [place], [address] Potassium [Moles/Vol] 4.4 mmol/L Normal 3.5-5.1 [facility] Comment on above: Performed By: #### L 500.2500 ####[facility] [address] [place], [address] Sodium [Moles/Vol] 138 mmol/L Normal 136-145 [facility] Comment on above: Performed By: #### L 500.2500 ####[facility] [address] [place], [address] Urea nitrogen [Mass/Vol] 33 mg/dL High 7-18 [facility] Comment on above: Performed By: #### L 500.2500 ####[facility] [address] [place], [address] BUN/CRE 32.1 RATIO High 10-20 [facility] Comment on above: Order Comment: 'TROP ' Serial specimen #1, #2 or #3: 1 Performed By: #### L 501.4020, L503.6620, L500.2500, L100.0100 ####[facility] [address] [place], [address] CA,Total 8.4 mg/dL Low 8.5-10.1 [facility] Comment on above: Order Comment: 'TROP ' Serial specimen #1, #2 or #3: 1 Performed By: #### L 501.4020, L503.6620, L500.2500, L100.0100 ####[facility] [address] [place], [address] Chloride [Moles/Vol] 104 mmol/L Normal 98-107 [facility] Comment on above: Order Comment: 'TROP ' Serial specimen #1, #2 or #3: 1 Performed By: #### L 501.4020, L503.6620, L500.2500, L100.0100 ####[facility] [address] [place], [address] CO2 [Moles/Vol] 26.0 mmol/L Normal 21.0-32.0 [facility] Comment on above: Order Comment: 'TROP ' Serial specimen #1, #2 or #3: 1 Performed By: #### L 501.4020, L503.6620, L500.2500, L100.0100 ####[facility] [address] [place], [address] Creatinine [Mass/Vol] 1.09 mg/dL Normal 0.70-1.30 [facility] Comment on above: Order Comment: 'TROP ' Serial specimen #1, #2 or #3: 1 Result Comment: The validity of the calculated GFR GFRAA in patients over70 years has not been determined. Clinical correlation isessential. Performed By: #### L 501.4020, L503.6620, L500.2500, L100.0100 ####[facility] [address] [place], [address] ECRCL 56.61 ml/min Normal [facility] Comment on above: Order Comment: 'TROP ' Serial specimen #1, #2 or #3: 1 Performed By: #### L 501.4020, L503.6620, L500.2500, L100.0100 ####[facility] [address] [place], [address] EST GFR - AA 84 mL/min Normal >60 [facility] Comment on above: Order Comment: 'TROP ' Serial specimen #1, #2 or #3: 1 Result Comment: Afri can [place] GFR Calc Performed By: #### L 501.4020, L503.6620, L500.2500, L100.0100 ####[facility] [address] [place], [address] GAP 4 Low 5-15 [facility] Comment on above: Order Comment: 'TROP ' Serial specimen #1, #2 or #3: 1 Performed By: #### L 501.4020, L503.6620, L500.2500, L100.0100 ####[facility] [address] [place], [address] GFR/1.73 sq M.predicted among non-blacks MDRD (S/P/Bld) [Vol rate/Area] 69 mL/min/{1.73_m2} Normal >60 [facility] Comment on above: Order Comment: 'TROP ' Serial specimen #1, #2 or #3: 1 Result Comment: Non- GFR Calc Performed By: #### L 501.4020, L503.6620, L500.2500, L100.0100 ####[facility] [address] [place], [address] Glucose [Mass/Vol] 166 mg/dL High 74-106 [facility] Comment on above: Order Comment: 'TROP ' Serial specimen #1, #2 or #3: 1 Result Comment: Fast ing Glucose result greater than or equal to 126 mg/dLsuggests DIABETES MELLITUS per A.D.A. criteria. Performed By: #### L 501.4020, L503.6620, L500.2500, L100.0100 ####[facility] [address] [place], [address] Potassium [Moles/Vol] 8.4 mmol/L Invalid Interpretation Code 3.5-5.1 [facility] Comment on above: Order Comment: 'TROP ' Serial specimen #1, #2 or #3: 1 Result Comment: Mode rate Hemolysis, Result may be falsely increased.Critical Result(s) Called at: 19:02:24 10/05/2023 by:DAVID HEARN TO NORY WALTERS. Results read back by same. Performed By: #### L 501.4020, L503.6620, L500.2500, L100.0100 ####[facility] [address] [place], [address] Sodium [Moles/Vol] 134 mmol/L Low 136-145 [facility] Comment on above: Order Comment: 'TROP ' Serial specimen #1, #2 or #3: 1 Performed By: #### L 501.4020, L503.6620, L500.2500, L100.0100 ####[facility] [address] [place], [address] Urea nitrogen [Mass/Vol] 35 mg/dL High 7-18 [facility] Comment on above: Order Comment: 'TROP ' Serial specimen #1, #2 or #3: 1 Performed By: #### L 501.4020, L503.6620, L500.2500, L100.0100 ####[facility] [address] [place], [address] BUN Normal -18 [facility] Comment on above: Result Comment: Canc elled via OM: Order cancelled - Patient discharged Performed By: #### L 500.2500, L100.0100 ####[facility] [address] [place], [address] BUN/CRE Normal 10-20 [facility] Comment on above: Result Comment: Canc elled via OM: Order cancelled - Patient discharged Performed By: #### L 500.2500, L100.0100 ####[facility] [address] [place], [address] CA,Total Normal 8.5-10.1 [facility] Comment on above: Result Comment: Canc elled via OM: Order cancelled - Patient discharged Performed By: #### L 500.2500, L100.0100 ####[facility] [address] [place], [address] CL Normal 98-107 [facility] Comment on above: Result Comment: Canc elled via OM: Order cancelled - Patient discharged Performed By: #### L 500.2500, L100.0100 ####[facility] [address] [place], [address] CO2 Normal 21.0-32.0 [facility] Comment on above: Result Comment: Canc elled via OM: Order cancelled - Patient discharged Performed By: #### L 500.2500, L100.0100 ####[facility] [address] [place], [address] CREAT,SERUM Normal 0.70-1.30 [facility] Comment on above: Result Comment: Canc elled via OM: Order cancelled - Patient discharged Performed By: #### L 500.2500, L100.0100 ####[facility] [address] [place], [address] EST GFR Normal >60 [facility] Comment on above: Result Comment: Canc elled via OM: Order cancelled - Patient discharged Performed By: #### L 500.2500, L100.0100 ####[facility] [address] [place], [address] EST GFR - AA Normal >60 [facility] Comment on above: Result Comment: Canc elled via OM: Order cancelled - Patient discharged Performed By: #### L 500.2500, L100.0100 ####[facility] [address] [place], [address] GAP Normal 5-15 [facility] Comment on above: Result Comment: Canc elled via OM: Order cancelled - Patient discharged Performed By: #### L 500.2500, L100.0100 ####[facility] [address] [place], [address] GLU Normal 74-106 [facility] Comment on above: Result Comment: Canc elled via OM: Order cancelled - Patient discharged Performed By: #### L 500.2500, L100.0100 ####[facility] [address] [place], [address] Potassium Normal 3.5-5.1 [facility] Comment on above: Result Comment: Canc elled via OM: Order cancelled - Patient discharged Performed By: #### L 500.2500, L100.0100 ####[facility] [address] [place], [address] Basic Metabolic Profile (BMP) Normal 136-145 [facility] Comment on above: Result Comment: Canc elled via OM: Order cancelled - Patient discharged Performed By: #### L 500.2500, L100.0100 ####[facility] [address] [place], [address] Bedside Glucoseon 10-05-2023 FINGERSTICK GLU 115 mg/dL High 74-106 [facility] Comment on above: Result Comment: BOB DORIS OF PATIENT CARE PER NURSING PROTOCOL Performed By: #### L 501.080 ####[facility] [address] [place], [address] Brain/Head without Contrasto n 10-05-2023 Brain/Head without Contrast Normal [facility] CBC W/Diff, Automatedon 08- Anisocytosis Ql (Bld) RARE Normal [facility] Comment on above: Performed By: #### L 501.4020, L503.6620, L500.2500, L100.0100 ####[facility] [address] [place], [address] HYPOCHROMASIA 1+ Normal [facility] Comment on above: Performed By: #### L 501.4020, L503.6620, L500.2500, L100.0100 ####[facility] [address] [place], [address] MACROCYTOSIS RARE Normal [facility] Comment on above: Performed By: #### L 501.4020, L503.6620, L500.2500, L100.0100 ####[facility] [address] [place], [address] OVALOCYTE RARE Normal [facility] Comment on above: Performed By: #### L 501.4020, L503.6620, L500.2500, L100.0100 ####[facility] [address] [place], [address] POLYCHROMASIA RARE Normal [facility] Comment on above: Performed By: #### L 501.4020, L503.6620, L500.2500, L100.0100 ####[facility] [address] [place], [address] PLT EST ADEQUATE Normal ADEQ [facility] Comment on above: Performed By: #### L 501.4020, L503.6620, L500.2500, L100.0100 ####[facility] [address] [place], [address] RED CELL MORPH N CHROM Normal NORM C C [facility] Comment on above: Performed By: #### L 501.4020, L503.6620, L500.2500, L100.0100 ####[facility] [address] [place], [address] SMEAR COMMENT SEE COMMENT Normal [facility] Comment on above: Result Comment: LYMP HOPENIA NOTED Performed By: #### L 501.4020, L503.6620, L500.2500, L100.0100 ####[facility] [address] [place], [address] Absolute Neut Normal 2.0-7.7 [facility] Comment on above: Result Comment: Canc elled via OM: Order cancelled - Patient discharged Performed By: #### L 500.2500, L100.0100 ####[facility] [address] [place], [address] HCT Normal 40-54 [facility] Comment on above: Result Comment: Canc elled via OM: Order cancelled - Patient discharged Performed By: #### L 500.2500, L100.0100 ####[facility] [address] [place], [address] HGB Normal 13.0-16.5 [facility] Comment on above: Result Comment: Canc elled via OM: Order cancelled - Patient discharged Performed By: #### L 500.2500, L100.0100 ####[facility] [address] [place], [address] MCH Normal 27.0-32.0 [facility] Comment on above: Result Comment: Canc elled via OM: Order cancelled - Patient discharged Performed By: #### L 500.2500, L100.0100 ####[facility] [address] [place], [address] MCHC Normal 32-36 [facility] Comment on above: Result Comment: Canc elled via OM: Order cancelled - Patient discharged Performed By: #### L 500.2500, L100.0100 ####[facility] [address] [place], [address] MCV Normal 80-94 [facility] Comment on above: Result Comment: Canc elled via OM: Order cancelled - Patient discharged Performed By: #### L 500.2500, L100.0100 ####[facility] [address] [place], [address] NEUT% Normal 47-70 [facility] Comment on above: Result Comment: Canc elled via OM: Order cancelled - Patient discharged Performed By: #### L 500.2500, L100.0100 ####[facility] [address] [place], [address] PLT Normal 150-450 [facility] Comment on above: Result Comment: Canc elled via OM: Order cancelled - Patient discharged Performed By: #### L 500.2500, L100.0100 ####[facility] [address] [place], [address] RBC Normal 4.6-6.2 [facility] Comment on above: Result Comment: Canc elled via OM: Order cancelled - Patient discharged Performed By: #### L 500.2500, L100.0100 ####[facility] [address] [place], [address] RDW CV Normal 11.6-14.6 [facility] Comment on above: Result Comment: Canc elled via OM: Order cancelled - Patient discharged Performed By: #### L 500.2500, L100.0100 ####[facility] [address] [place], [address] RDW SD Normal 35.1-43.9 [facility] Comment on above: Result Comment: Canc elled via OM: Order cancelled - Patient discharged Performed By: #### L 500.2500, L100.0100 ####[facility] [address] [place], [address] WBC Normal 4.4-11.0 [facility] Comment on above: Result Comment: Canc elled via OM: Order cancelled - Patient discharged Performed By: #### L 500.2500, L100.0100 ####[facility] [address] [place], [address] CNPNon 10-05-2023 CNPN Normal [facility] CTA Chest W/WO Contraston CTA Chest W/WO Contrast Normal [facility] Emergency Department Summary on 10-05-2023 Emergency Department Summary Normal [facility] Hemoglobinon 10-05-2023 Hemoglobin (Bld) [Mass/Vol] 6.8 g/dL Low 13.0-16.5 [facility] Comment on above: Performed By: #### L 100.1300 ####[facility] [address] [place], [address] L501.4020on 10-05-2023 TROPONIN-I HS 65 pg/mL Normal 3.0-78.0 [facility] Comment on above: Order Comment: 'TROP ' Serial specimen #1, #2 or #3: 1 Result Comment: Plea se Note: New Test Units and Gender Specific Reference Ranges. For more information see Policy Stat Procedure [place] High Sensitivity Troponin (TNIH) and attachments. Performed By: #### L 501.4020, L503.6620, L500.2500, L100.0100 ####[facility] [address] [place], [address] Lactic Acidon 10-05-2023 Lactate [Moles/Vol] 3.4 mmol/L Invalid Interpretation Code 0.4-1.9 [facility] Comment on above: Order Comment: Y Result Comment: Crit ical Result(s) Called at: 20:14:57 10/05/2023 by:DAVID HEARN TO LUIS ANTONIO LEMUS. Results read back by same. Performed By: #### L 503.6005 ####[facility] [address] [place], [address] Stool Occult Blood iFOBon STOB Positive Normal [facility] Comment on above: Performed By: #### M 100.7900, BTS ####[facility] [address] [place], [address] Type AND Screenon 10-05-2023 ABO and Rh group Nom (Bld) Blood group O Rh(D) negative Normal [facility] Comment on above: Order Comment: A Performed By: #### M 100.7900, BTS ####[facility] [address] [place], [address] Venous Blood Gason Blood Gas Type MARTIN Normal [facility] Comment on above: Performed By: #### L 9000.0810 ####[facility] [address] [place], [address] CO2 [Moles/Vol] 27 mmol/L Normal 23-33 [facility] Comment on above: Performed By: #### L 9000.0810 ####[facility] [address] [place], [address] Comment 02/04 12 30% Normal [facility] Comment on above: Performed By: #### L 9000.0810 ####[facility] [address] [place], [address] FI02 30.0 Normal [facility] Comment on above: Performed By: #### L 9000.0810 ####[facility] [address] [place], [address] HCO3 (Bld) [Moles/Vol] 26 mmol/L Normal 22-26 [facility] Comment on above: Performed By: #### L 9000.0810 ####[facility] [address] [place], [address] O2 Delivery Dev BiPAP Normal [facility] Comment on above: Performed By: #### L 9000.0810 ####[facility] [address] [place], [address] SITE Not entered Normal [facility] Comment on above: Performed By: #### L 9000.0810 ####[facility] [address] [place], [address] VBG BE 3 mmol/L Normal -1.0-3.5 [facility] Comment on above: Performed By: #### L 9000.0810 ####[facility] [address] [place], [address] VBG pCO2 31.4 mmHg Low 41-51 [facility] Comment on above: Performed By: #### L 9000.0810 ####[facility] [address] [place], [address] VBG pH 7.53 High 7.32-7.42 [facility] Comment on above: Performed By: #### L 9000.0810 ####[facility] [address] [place], [address] VBG PO2 114 mmHg High 25-40 [facility] Comment on above: Performed By: #### L 9000.0810 ####[facility] [address] [place], [address] VBG SO2 99 High 50-70 [facility] Comment on above: Performed By: #### L 9000.0810 ####[facility] [address] [place], [address] Basic Metabolic Profile (BMP )on 10-04-2023 BUN Normal 7-18 [facility] Comment on above: Result Comment: Canc elled via OM: Order cancelled - Patient discharged Performed By: #### L 500.2500, L100.0100 ####[facility] [address] [place], [address] BUN/CRE Normal 10-20 [facility] Comment on above: Result Comment: Canc elled via OM: Order cancelled - Patient discharged Performed By: #### L 500.2500, L100.0100 ####[facility] [address] [place], [address] CA,Total Normal 8.5-10.1 [facility] Comment on above: Result Comment: Canc elled via OM: Order cancelled - Patient discharged Performed By: #### L 500.2500, L100.0100 ####[facility] [address] [place], [address] CL Normal 98-107 [facility] Comment on above: Result Comment: Canc elled via OM: Order cancelled - Patient discharged Performed By: #### L 500.2500, L100.0100 ####[facility] [address] [place], [address] CO2 Normal 21.0-32.0 [facility] Comment on above: Result Comment: Canc elled via OM: Order cancelled - Patient discharged Performed By: #### L 500.2500, L100.0100 ####[facility] [address] [place], [address] CREAT,SERUM Normal 0.70-1.30 [facility] Comment on above: Result Comment: Canc elled via OM: Order cancelled - Patient discharged Performed By: #### L 500.2500, L100.0100 ####[facility] [address] [place], [address] EST GFR Normal >60 [facility] Comment on above: Result Comment: Canc elled via OM: Order cancelled - Patient discharged Performed By: #### L 500.2500, L100.0100 ####[facility] [address] [place], [address] EST GFR - AA Normal >60 [facility] Comment on above: Result Comment: Canc elled via OM: Order cancelled - Patient discharged Performed By: #### L 500.2500, L100.0100 ####[facility] [address] [place], [address] GAP Normal 5-15 [facility] Comment on above: Result Comment: Canc elled via OM: Order cancelled - Patient discharged Performed By: #### L 500.2500, L100.0100 ####[facility] [address] [place], [address] GLU Normal 74-106 [facility] Comment on above: Result Comment: Canc elled via OM: Order cancelled - Patient discharged Performed By: #### L 500.2500, L100.0100 ####[facility] [address] [place], [address] Potassium Normal 3.5-5.1 [facility] Comment on above: Result Comment: Canc elled via OM: Order cancelled - Patient discharged Performed By: #### L 500.2500, L100.0100 ####[facility] [address] [place], [address] Basic Metabolic Profile (BMP) Normal 136-145 [facility] Comment on above: Result Comment: Canc elled via OM: Order cancelled - Patient discharged Performed By: #### L 500.2500, L100.0100 ####[facility] [address] [place], [address] CBC W/Diff, Automatedon 08-0 Absolute Neut Normal 2.0-7.7 [facility] Comment on above: Result Comment: Canc elled via OM: Order cancelled - Patient discharged Performed By: #### L 500.2500, L100.0100 ####[facility] [address] [place], [address] HCT Normal 40-54 [facility] Comment on above: Result Comment: Canc elled via OM: Order cancelled - Patient discharged Performed By: #### L 500.2500, L100.0100 ####[facility] [address] [place], [address] HGB Normal 13.0-16.5 [facility] Comment on above: Result Comment: Canc elled via OM: Order cancelled - Patient discharged Performed By: #### L 500.2500, L100.0100 ####[facility] [address] [place] [place], [address] MCH Normal 27.0-32.0 [facility] Comment on above: Result Comment: Canc elled via OM: Order cancelled - Patient discharged Performed By: #### L 500.2500, L100.0100 ####[facility] [address] [place], [address] MCHC Normal 32-36 [facility] Comment on above: Result Comment: Canc elled via OM: Order cancelled - Patient discharged Performed By: #### L 500.2500, L100.0100 ####[facility] [address] [place], [address] MCV Normal 80-94 [facility] Comment on above: Result Comment: Canc elled via OM: Order cancelled - Patient discharged Performed By: #### L 500.2500, L100.0100 ####[facility] [address] [place], [address] NEUT% Normal 47-70 [facility] Comment on above: Result Comment: Canc elled via OM: Order cancelled - Patient discharged Performed By: #### L 500.2500, L100.0100 ####[facility] [address] [place], [address] PLT Normal 150-450 [facility] Comment on above: Result Comment: Canc elled via OM: Order cancelled - Patient discharged Performed By: #### L 500.2500, L100.0100 ####[facility] [address] [place], [address] RBC Normal 4.6-6.2 [facility] Comment on above: Result Comment: Canc elled via OM: Order cancelled - Patient discharged Performed By: #### L 500.2500, L100.0100 ####[facility] [address] [place], [address] RDW CV Normal 11.6-14.6 [facility] Comment on above: Result Comment: Canc elled via OM: Order cancelled - Patient discharged Performed By: #### L 500.2500, L100.0100 ####[facility] [address] [place], [address] RDW SD Normal 35.1-43.9 [facility] Comment on above: Result Comment: Canc elled via OM: Order cancelled - Patient discharged Performed By: #### L 500.2500, L100.0100 ####[facility] [address] [place], [address] WBC Normal 4.4-11.0 [facility] Comment on above: Result Comment: Canc elled via OM: Order cancelled - Patient discharged Performed By: #### L 500.2500, L100.0100 ####[facility] [address] [place], [address] Basic Metabolic Profile (BMP )on 10-03-2023 BUN Normal 7-18 [facility] Comment on above: Result Comment: Canc elled via OM: Order cancelled - Patient discharged Performed By: #### L 500.2500, L100.0100 ####[facility] [address] [place], [address] BUN/CRE Normal 10-20 [facility] Comment on above: Result Comment: Canc elled via OM: Order cancelled - Patient discharged Performed By: #### L 500.2500, L100.0100 ####[facility] [address] [place], [address] CA,Total Normal 8.5-10.1 [facility] Comment on above: Result Comment: Canc elled via OM: Order cancelled - Patient discharged Performed By: #### L 500.2500, L100.0100 ####[facility] [address] [place], [address] CL Normal 98-107 [facility] Comment on above: Result Comment: Canc elled via OM: Order cancelled - Patient discharged Performed By: #### L 500.2500, L100.0100 ####[facility] [address] [place], [address] CO2 Normal 21.0-32.0 [facility] Comment on above: Result Comment: Canc elled via OM: Order cancelled - Patient discharged Performed By: #### L 500.2500, L100.0100 ####[facility] [address] [place], [address] CREAT,SERUM Normal 0.70-1.30 [facility] Comment on above: Result Comment: Canc elled via OM: Order cancelled - Patient discharged Performed By: #### L 500.2500, L100.0100 ####[facility] [address] [place], [address] EST GFR Normal >60 [facility] Comment on above: Result Comment: Canc elled via OM: Order cancelled - Patient discharged Performed By: #### L 500.2500, L100.0100 ####[facility] [address] [place], [address] EST GFR - AA Normal >60 [facility] Comment on above: Result Comment: Canc elled via OM: Order cancelled - Patient discharged Performed By: #### L 500.2500, L100.0100 ####[facility] [address] [place] [place], [address] GAP Normal 5-15 [facility] Comment on above: Result Comment: Canc elled via OM: Order cancelled - Patient discharged Performed By: #### L 500.2500, L100.0100 ####[facility] [address] [place], [address] GLU Normal 74-106 [facility] Comment on above: Result Comment: Canc elled via OM: Order cancelled - Patient discharged Performed By: #### L 500.2500, L100.0100 ####[facility] [address] [place], [address] Potassium Normal 3.5-5.1 [facility] Comment on above: Result Comment: Canc elled via OM: Order cancelled - Patient discharged Performed By: #### L 500.2500, L100.0100 ####[facility] [address] [place], [address] Basic Metabolic Profile (BMP) Normal 136-145 [facility] Comment on above: Result Comment: Canc elled via OM: Order cancelled - Patient discharged Performed By: #### L 500.2500, L100.0100 ####[facility] [address] [place], [address] CBC W/Diff, Automatedon 08-0 Absolute Neut Normal 2.0-7.7 [facility] Comment on above: Result Comment: Canc elled via OM: Order cancelled - Patient discharged Performed By: #### L 500.2500, L100.0100 ####[facility] [address] [place], [address] HCT Normal 40-54 [facility] Comment on above: Result Comment: Canc elled via OM: Order cancelled - Patient discharged Performed By: #### L 500.2500, L100.0100 ####[facility] [address] [place], [address] HGB Normal 13.0-16.5 [facility] Comment on above: Result Comment: Canc elled via OM: Order cancelled - Patient discharged Performed By: #### L 500.2500, L100.0100 ####[facility] [address] [place], [address] MCH Normal 27.0-32.0 [facility] Comment on above: Result Comment: Canc elled via OM: Order cancelled - Patient discharged Performed By: #### L 500.2500, L100.0100 ####[facility] [address] [place], [address] MCHC Normal 32-36 [facility] Comment on above: Result Comment: Canc elled via OM: Order cancelled - Patient discharged Performed By: #### L 500.2500, L100.0100 ####[facility] [address] [place], [address] MCV Normal 80-94 [facility] Comment on above: Result Comment: Canc elled via OM: Order cancelled - Patient discharged Performed By: #### L 500.2500, L100.0100 ####[facility] [address] [place], [address] NEUT% Normal 47-70 [facility] Comment on above: Result Comment: Canc elled via OM: Order cancelled - Patient discharged Performed By: #### L 500.2500, L100.0100 ####[facility] [address] [place], [address] PLT Normal 150-450 [facility] Comment on above: Result Comment: Canc elled via OM: Order cancelled - Patient discharged Performed By: #### L 500.2500, L100.0100 ####[facility] [address] [place], [address] RBC Normal 4.6-6.2 [facility] Comment on above: Result Comment: Canc elled via OM: Order cancelled - Patient discharged Performed By: #### L 500.2500, L100.0100 ####[facility] [address] [place] [place], [address] RDW CV Normal 11.6-14.6 [facility] Comment on above: Result Comment: Canc elled via OM: Order cancelled - Patient discharged Performed By: #### L 500.2500, L100.0100 ####[facility] [address] [place] [place], [address] RDW SD Normal 35.1-43.9 [facility] Comment on above: Result Comment: Canc elled via OM: Order cancelled - Patient discharged Performed By: #### L 500.2500, L100.0100 ####[facility] [address] [place] [place], [address] WBC Normal 4.4-11.0 [facility] Comment on above: Result Comment: Canc elled via OM: Order cancelled - Patient discharged Performed By: #### L 500.2500, L100.0100 ####[facility] [address] [place] [place], [address] Basic Metabolic Profile (BMP )on 10-02-2023 BUN Normal 7-18 [facility] Comment on above: Result Comment: Canc elled via OM: Order cancelled - Patient discharged Performed By: #### L 100.0100, L500.2500 ####[facility] [address] [place] [place], [address] BUN/CRE Normal 10-20 [facility] Comment on above: Result Comment: Canc elled via OM: Order cancelled - Patient discharged Performed By: #### L 100.0100, L500.2500 ####[facility] [address] [place] [place], [address] CA,Total Normal 8.5-10.1 [facility] Comment on above: Result Comment: Canc elled via OM: Order cancelled - Patient discharged Performed By: #### L 100.0100, L500.2500 ####[facility] [address] [place], [address] CL Normal 98-107 [facility] Comment on above: Result Comment: Canc elled via OM: Order cancelled - Patient discharged Performed By: #### L 100.0100, L500.2500 ####[facility] [address] [place], [address] CO2 Normal 21.0-32.0 [facility] Comment on above: Result Comment: Canc elled via OM: Order cancelled - Patient discharged Performed By: #### L 100.0100, L500.2500 ####[facility] [address] [place], [address] CREAT,SERUM Normal 0.70-1.30 [facility] Comment on above: Result Comment: Canc elled via OM: Order cancelled - Patient discharged Performed By: #### L 100.0100, L500.2500 ####[facility] [address] [place], [address] EST GFR Normal >60 [facility] Comment on above: Result Comment: Canc elled via OM: Order cancelled - Patient discharged Performed By: #### L 100.0100, L500.2500 ####[facility] [address] [place], [address] EST GFR - AA Normal >60 [facility] Comment on above: Result Comment: Canc elled via OM: Order cancelled - Patient discharged Performed By: #### L 100.0100, L500.2500 ####[facility] [address] [place] [place], [address] GAP Normal 5-15 [facility] Comment on above: Result Comment: Canc elled via OM: Order cancelled - Patient discharged Performed By: #### L 100.0100, L500.2500 ####[facility] [address] [place], [address] GLU Normal 74-106 [facility] Comment on above: Result Comment: Canc elled via OM: Order cancelled - Patient discharged Performed By: #### L 100.0100, L500.2500 ####[facility] [address] [place], [address] Potassium Normal 3.5-5.1 [facility] Comment on above: Result Comment: Canc elled via OM: Order cancelled - Patient discharged Performed By: #### L 100.0100, L500.2500 ####[facility] [address] [place], [address] Basic Metabolic Profile (BMP) Normal 136-145 [facility] Comment on above: Result Comment: Canc elled via OM: Order cancelled - Patient discharged Performed By: #### L 100.0100, L500.2500 ####[facility] [address] [place], [address] CBC W/Diff, Automatedon 08-0 -2023 Absolute Neut Normal 2.0-7.7 [facility] Comment on above: Result Comment: Canc elled via OM: Order cancelled - Patient discharged Performed By: #### L 100.0100, L500.2500 ####[facility] [address] [place], [address] HCT Normal 40-54 [facility] Comment on above: Result Comment: Canc elled via OM: Order cancelled - Patient discharged Performed By: #### L 100.0100, L500.2500 ####[facility] [address] [place], [address] HGB Normal 13.0-16.5 [facility] Comment on above: Result Comment: Canc elled via OM: Order cancelled - Patient discharged Performed By: #### L 100.0100, L500.2500 ####[facility] [address] [place], [address] MCH Normal 27.0-32.0 [facility] Comment on above: Result Comment: Canc elled via OM: Order cancelled - Patient discharged Performed By: #### L 100.0100, L500.2500 ####[facility] [address] [place], [address] MCHC Normal 32-36 [facility] Comment on above: Result Comment: Canc elled via OM: Order cancelled - Patient discharged Performed By: #### L 100.0100, L500.2500 ####[facility] [address] [place], [address] MCV Normal 80-94 [facility] Comment on above: Result Comment: Canc elled via OM: Order cancelled - Patient discharged Performed By: #### L 100.0100, L500.2500 ####[facility] [address] [place], [address] NEUT% Normal 47-70 [facility] Comment on above: Result Comment: Canc elled via OM: Order cancelled - Patient discharged Performed By: #### L 100.0100, L500.2500 ####[facility] [address] [place], [address] PLT Normal 150-450 [facility] Comment on above: Result Comment: Canc elled via OM: Order cancelled - Patient discharged Performed By: #### L 100.0100, L500.2500 ####[facility] [address] [place], [address] RBC Normal 4.6-6.2 [facility] Comment on above: Result Comment: Canc elled via OM: Order cancelled - Patient discharged Performed By: #### L 100.0100, L500.2500 ####[facility] [address] [place], [address] RDW CV Normal 11.6-14.6 [facility] Comment on above: Result Comment: Canc elled via OM: Order cancelled - Patient discharged Performed By: #### L 100.0100, L500.2500 ####[facility] [address] [place], [address] RDW SD Normal 35.1-43.9 [facility] Comment on above: Result Comment: Canc elled via OM: Order cancelled - Patient discharged Performed By: #### L 100.0100, L500.2500 ####[facility] [address] [place], [address] WBC Normal 4.4-11.0 [facility] Comment on above: Result Comment: Canc elled via OM: Order cancelled - Patient discharged Performed By: #### L 100.0100, L500.2500 ####[facility] [address] [place], [address] Basic Metabolic Profile (BMP )on 10-01-2023 BUN Normal 7-18 [facility] Comment on above: Result Comment: Canc elled via OM: Order cancelled - Patient discharged Performed By: #### L 500.2500, L100.0100 ####[facility] [address] [place], [address] BUN/CRE Normal 10-20 [facility] Comment on above: Result Comment: Canc elled via OM: Order cancelled - Patient discharged Performed By: #### L 500.2500, L100.0100 ####[facility] [address] [place], [address] CA,Total Normal 8.5-10.1 [facility] Comment on above: Result Comment: Canc elled via OM: Order cancelled - Patient discharged Performed By: #### L 500.2500, L100.0100 ####[facility] [address] [place], [address] CL Normal 98-107 [facility] Comment on above: Result Comment: Canc elled via OM: Order cancelled - Patient discharged Performed By: #### L 500.2500, L100.0100 ####[facility] [address] [place], [address] CO2 Normal 21.0-32.0 [facility] Comment on above: Result Comment: Canc elled via OM: Order cancelled - Patient discharged Performed By: #### L 500.2500, L100.0100 ####[facility] [address] [place], [address] CREAT,SERUM Normal 0.70-1.30 [facility] Comment on above: Result Comment: Canc elled via OM: Order cancelled - Patient discharged Performed By: #### L 500.2500, L100.0100 ####[facility] [address] [place], [address] EST GFR Normal >60 [facility] Comment on above: Result Comment: Canc elled via OM: Order cancelled - Patient discharged Performed By: #### L 500.2500, L100.0100 ####[facility] [address] [place], [address] EST GFR - AA Normal >60 [facility] Comment on above: Result Comment: Canc elled via OM: Order cancelled - Patient discharged Performed By: #### L 500.2500, L100.0100 ####[facility] [address] [place], [address] GAP Normal 5-15 [facility] Comment on above: Result Comment: Canc elled via OM: Order cancelled - Patient discharged Performed By: #### L 500.2500, L100.0100 ####[facility] [address] [place], [address] GLU Normal 74-106 [facility] Comment on above: Result Comment: Canc elled via OM: Order cancelled - Patient discharged Performed By: #### L 500.2500, L100.0100 ####[facility] [address] [place], [address] Potassium Normal 3.5-5.1 [facility] Comment on above: Result Comment: Canc elled via OM: Order cancelled - Patient discharged Performed By: #### L 500.2500, L100.0100 ####[facility] [address] [place], [address] Basic Metabolic Profile (BMP) Normal 136-145 [facility] Comment on above: Result Comment: Canc elled via OM: Order cancelled - Patient discharged Performed By: #### L 500.2500, L100.0100 ####[facility] [address] [place] [place], [address] CBC W/Diff, Automatedon 08-0 -2023 Absolute Neut Normal 2.0-7.7 [facility] Comment on above: Result Comment: Canc elled via OM: Order cancelled - Patient discharged Performed By: #### L 500.2500, L100.0100 ####[facility] [address] [place], [address] HCT Normal 40-54 [facility] Comment on above: Result Comment: Canc elled via OM: Order cancelled - Patient discharged Performed By: #### L 500.2500, L100.0100 ####[facility] [address] [place] [place], [address] HGB Normal 13.0-16.5 [facility] Comment on above: Result Comment: Canc elled via OM: Order cancelled - Patient discharged Performed By: #### L 500.2500, L100.0100 ####[facility] [address] [place], [address] MCH Normal 27.0-32.0 [facility] Comment on above: Result Comment: Canc elled via OM: Order cancelled - Patient discharged Performed By: #### L 500.2500, L100.0100 ####[facility] [address] [place], [address] MCHC Normal 32-36 [facility] Comment on above: Result Comment: Canc elled via OM: Order cancelled - Patient discharged Performed By: #### L 500.2500, L100.0100 ####[facility] [address] [place], [address] MCV Normal 80-94 [facility] Comment on above: Result Comment: Canc elled via OM: Order cancelled - Patient discharged Performed By: #### L 500.2500, L100.0100 ####[facility] [address] [place], [address] NEUT% Normal 47-70 [facility] Comment on above: Result Comment: Canc elled via OM: Order cancelled - Patient discharged Performed By: #### L 500.2500, L100.0100 ####[facility] [address] [place], [address] PLT Normal 150-450 [facility] Comment on above: Result Comment: Canc elled via OM: Order cancelled - Patient discharged Performed By: #### L 500.2500, L100.0100 ####[facility] [address] [place], [address] RBC Normal 4.6-6.2 [facility] Comment on above: Result Comment: Canc elled via OM: Order cancelled - Patient discharged Performed By: #### L 500.2500, L100.0100 ####[facility] [address] [place], [address] RDW CV Normal 11.6-14.6 [facility] Comment on above: Result Comment: Canc elled via OM: Order cancelled - Patient discharged Performed By: #### L 500.2500, L100.0100 ####[facility] [address] [place], [address] RDW SD Normal 35.1-43.9 [facility] Comment on above: Result Comment: Canc elled via OM: Order cancelled - Patient discharged Performed By: #### L 500.2500, L100.0100 ####[facility] [address] [place], [address] WBC Normal 4.4-11.0 [facility] Comment on above: Result Comment: Canc elled via OM: Order cancelled - Patient discharged Performed By: #### L 500.2500, L100.0100 ####[facility] [address] [place], [address] CNPNon 10-01-2023 CNPN Normal [facility] CNPTOUTREACHon 10-01-2023 CNPTOUTREACH Normal [facility] Respiratory Cultureon 2023 RESPC Normal [facility] Comment on above: Performed By: #### M 100.2000, M100.2400 ####[facility] [address] [place], [address] Basic Metabolic Profile (BMP )on 09-30-2023 BUN/CRE 21.1 RATIO High 10-20 [facility] Comment on above: Performed By: #### L 100.0100, L500.2500 ####[facility] [address] [place], [address] CA,Total 8.2 mg/dL Low 8.5-10.1 [facility] Comment on above: Performed By: #### L 100.0100, L500.2500 ####[facility] [address] [place], [address] Chloride [Moles/Vol] 108 mmol/L High 98-107 [facility] Comment on above: Performed By: #### L 100.0100, L500.2500 ####[facility] [address] [place], [address] CO2 [Moles/Vol] 30.0 mmol/L Normal 21.0-32.0 [facility] Comment on above: Performed By: #### L 100.0100, L500.2500 ####[facility] [address] [place], [address] Creatinine [Mass/Vol] 0.76 mg/dL Normal 0.70-1.30 [facility] Comment on above: Result Comment: The validity of the calculated GFR GFRAA in patients over70 years has not been determined. Clinical correlation isessential. Performed By: #### L 100.0100, L500.2500 ####[facility] [address] [place], [address] ECRCL 77.13 ml/min Normal [facility] Comment on above: Performed By: #### L 100.0100, L500.2500 ####[facility] [address] [place], [address] EST GFR - AA 127 mL/min Normal >60 [facility] Comment on above: Result Comment: Afri can [place] GFR Calc Performed By: #### L 100.0100, L500.2500 ####[facility] [address] [place], [address] GAP 6 Normal 5-15 [facility] Comment on above: Performed By: #### L 100.0100, L500.2500 ####[facility] [address] [place], [address] GFR/1.73 sq M.predicted among non-blacks MDRD (S/P/Bld) [Vol rate/Area] 105 mL/min/{1.73_m2} Normal >60 [facility] Comment on above: Result Comment: Non- GFR Calc Performed By: #### L 100.0100, L500.2500 ####[facility] [address] [place], [address] Glucose [Mass/Vol] 157 mg/dL High 74-106 [facility] Comment on above: Result Comment: Fast ing Glucose result greater than or equal to 126 mg/dLsuggests DIABETES MELLITUS per A.D.A. criteria. Performed By: #### L 100.0100, L500.2500 ####[facility] [address] [place], [address] Potassium [Moles/Vol] 3.0 mmol/L Low 3.5-5.1 [facility] Comment on above: Performed By: #### L 100.0100, L500.2500 ####[facility] [address] [place], [address] Sodium [Moles/Vol] 144 mmol/L Normal 136-145 [facility] Comment on above: Performed By: #### L 100.0100, L500.2500 ####[facility] [address] [place], [address] Urea nitrogen [Mass/Vol] 16 mg/dL Normal 7-18 [facility] Comment on above: Performed By: #### L 100.0100, L500.2500 ####[facility] [address] [place], [address] CBC W/Diff, Automatedon 07-3 -2023 Absolute Lymph 0.19 X10 3/uL Low 0.83-4.51 [facility] Comment on above: Performed By: #### L 100.0100, L500.2500 ####[facility] [address] [place], [address] Absolute Neut 6.2 X10 3/uL Normal 2.0-7.7 [facility] Comment on above: Performed By: #### L 100.0100, L500.2500 ####[facility] [address] [place], [address] Basophils/100 WBC (Bld) 0.0 % Normal 0-1 [facility] Comment on above: Performed By: #### L 100.0100, L500.2500 ####[facility] [address] [place], [address] Eosinophils/100 WBC (Bld) 0.0 % Normal 0-5 [facility] Comment on above: Performed By: #### L 100.0100, L500.2500 ####[facility] [address] [place], [address] Erythrocyte distribution width (RBC) [Ratio] 16.0 % High 11.6-14.6 [facility] Comment on above: Performed By: #### L 100.0100, L500.2500 ####[facility] [address] [place], [address] Hematocrit (Bld) [Volume fraction] 32.8 % Low 40-54 [facility] Comment on above: Performed By: #### L 100.0100, L500.2500 ####[facility] [address] [place], [address] Hemoglobin (Bld) [Mass/Vol] 10.0 g/dL Low 13.0-16.5 [facility] Comment on above: Performed By: #### L 100.0100, L500.2500 ####[facility] [address] [place], [address] IG% 0.700 Normal 0.0-0.9 [facility] Comment on above: Result Comment: IG% - Immature Granulocytes (promyelocytes, myelocytes andmetamyelocytes) > 1% indicates that a LEFT SHIFT is Present. Performed By: #### L 100.0100, L500.2500 ####[facility] [address] [place], [address] Lymphocytes/100 WBC (Bld) 2.8 % Low 19-41 [facility] Comment on above: Performed By: #### L 100.0100, L500.2500 ####[facility] [address] [place], [address] MCH (RBC) [Entitic mass] 27.0 pg Normal 27.0-32.0 [facility] Comment on above: Performed By: #### L 100.0100, L500.2500 ####[facility] [address] [place], [address] MCHC (RBC) [Mass/Vol] 30.5 g/dL Low 32-36 [facility] Comment on above: Performed By: #### L 100.0100, L500.2500 ####[facility] [address] [place], [address] MCV (RBC) [Entitic vol] 88.4 fL Normal 80-94 [facility] Comment on above: Performed By: #### L 100.0100, L500.2500 ####[facility] [address] [place], [address] Monocytes/100 WBC (Bld) 3.3 % Normal 0-10 [facility] Comment on above: Performed By: #### L 100.0100, L500.2500 ####[facility] [address] [place], [address] Neutrophils/100 WBC (Bld) 93.2 % High 47-70 [facility] Comment on above: Performed By: #### L 100.0100, L500.2500 ####[facility] [address] [place], [address] Nucleated RBC (Bld) [#/Vol] 0 10*3/uL Normal 0-5 [facility] Comment on above: Performed By: #### L 100.0100, L500.2500 ####[facility] [address] [place], [address] Platelet mean volume (Bld) [Entitic vol] 8.8 fL Normal 6.2-12.0 [facility] Comment on above: Performed By: #### L 100.0100, L500.2500 ####[facility] [address] [place], [address] Platelets (Bld) [#/Vol] 187 10*3/uL Normal 150-450 [facility] Comment on above: Performed By: #### L 100.0100, L500.2500 ####[facility] [address] [place], [address] RBC (Bld) [#/Vol] 3.71 10*6/uL Low 4.6-6.2 [facility] Comment on above: Performed By: #### L 100.0100, L500.2500 ####[facility] [address] [place], [address] RDW SD 52.4 fl High 35.1-43.9 [facility] Comment on above: Performed By: #### L 100.0100, L500.2500 ####[facility] [address] [place], [address] WBC (Bld) [#/Vol] 6.7 10*3/uL Normal 4.4-11.0 [facility] Comment on above: Performed By: #### L 100.0100, L500.2500 ####[facility] [address] [place], [address] Discharge Instructionon 09-01 Discharge Instruction Normal [facility] Magnesiumon 09-30-2023 Magnesium [Mass/Vol] 2.2 mg/dL Normal 1.6-2.6 [facility] Comment on above: Performed By: #### L 501.5200 ####[facility] [address] [place], [address] Alkaline Phosphataseon 09-28 -2023 ALK P 78 U/L Normal 45-117 [facility] Comment on above: Performed By: #### L 501.4305 ####[facility] [address] [place], [address] CBC W/Diff, Automatedon 09-01 0-2023 Absolute Lymph 0.14 X10 3/uL Low 0.83-4.51 [facility] Comment on above: Performed By: #### L 501.5200, L500.4050, L100.0100 ####[facility] [address] [place], [address] Absolute Neut 6.2 X10 3/uL Normal 2.0-7.7 [facility] Comment on above: Performed By: #### L 501.5200, L500.4050, L100.0100 ####[facility] [address] [place], [address] Basophils/100 WBC (Bld) 0.2 % Normal 0-1 [facility] Comment on above: Performed By: #### L 501.5200, L500.4050, L100.0100 ####[facility] [address] [place], [address] Eosinophils/100 WBC (Bld) 0.0 % Normal 0-5 [facility] Comment on above: Performed By: #### L 501.5200, L500.4050, L100.0100 ####[facility] [address] [place], [address] Erythrocyte distribution width (RBC) [Ratio] 15.9 % High 11.6-14.6 [facility] Comment on above: Performed By: #### L 501.5200, L500.4050, L100.0100 ####[facility] [address] [place], [address] Hematocrit (Bld) [Volume fraction] 35.3 % Low 40-54 [facility] Comment on above: Performed By: #### L 501.5200, L500.4050, L100.0100 ####[facility] [address] [place], [address] Hemoglobin (Bld) [Mass/Vol] 10.6 g/dL Low 13.0-16.5 [facility] Comment on above: Performed By: #### L 501.5200, L500.4050, L100.0100 ####[facility] [address] [place], [address] IG% 0.500 Normal 0.0-0.9 [facility] Comment on above: Result Comment: IG% - Immature Granulocytes (promyelocytes, myelocytes andmetamyelocytes) > 1% indicates that a LEFT SHIFT is Present. Performed By: #### L 501.5200, L500.4050, L100.0100 ####[facility] [address] [place], [address] Lymphocytes/100 WBC (Bld) 2.2 % Low 19-41 [facility] Comment on above: Performed By: #### L 501.5200, L500.4050, L100.0100 ####[facility] [address] [place], [address] MCH (RBC) [Entitic mass] 26.5 pg Low 27.0-32.0 [facility] Comment on above: Performed By: #### L 501.5200, L500.4050, L100.0100 ####[facility] [address] [place], [address] MCHC (RBC) [Mass/Vol] 30.0 g/dL Low 32-36 [facility] Comment on above: Performed By: #### L 501.5200, L500.4050, L100.0100 ####[facility] [address] [place], [address] MCV (RBC) [Entitic vol] 88.3 fL Normal 80-94 [facility] Comment on above: Performed By: #### L 501.5200, L500.4050, L100.0100 ####[facility] [address] [place], [address] Monocytes/100 WBC (Bld) 1.4 % Normal 0-10 [facility] Comment on above: Performed By: #### L 501.5200, L500.4050, L100.0100 ####[facility] [address] [place], [address] Neutrophils/100 WBC (Bld) 95.7 % High 47-70 [facility] Comment on above: Performed By: #### L 501.5200, L500.4050, L100.0100 ####[facility] [address] [place], [address] Nucleated RBC (Bld) [#/Vol] 0 10*3/uL Normal 0-5 [facility] Comment on above: Performed By: #### L 501.5200, L500.4050, L100.0100 ####[facility] [address] [place], [address] Platelet mean volume (Bld) [Entitic vol] 8.9 fL Normal 6.2-12.0 [facility] Comment on above: Performed By: #### L 501.5200, L500.4050, L100.0100 ####[facility] [address] [place], [address] Platelets (Bld) [#/Vol] 190 10*3/uL Normal 150-450 [facility] Comment on above: Performed By: #### L 501.5200, L500.4050, L100.0100 ####[facility] [address] [place], [address] RBC (Bld) [#/Vol] 4.00 10*6/uL Low 4.6-6.2 [facility] Comment on above: Performed By: #### L 501.5200, L500.4050, L100.0100 ####[facility] [address] [place], [address] RDW SD 51.8 fl High 35.1-43.9 [facility] Comment on above: Performed By: #### L 501.5200, L500.4050, L100.0100 ####[facility] [address] [place], [address] WBC (Bld) [#/Vol] 6.4 10*3/uL Normal 4.4-11.0 [facility] Comment on above: Performed By: #### L 501.5200, L500.4050, L100.0100 ####[facility] [address] [place], [address] CDIFF (PCR)on 09-29-2023 CDIFF Normal [facility] Comment on above: Performed By: #### M 100.637, M100.0605, M100.6796 ####[facility] [address] [place], [address] Colonoscopy Reporton 024 Colonoscopy Report Normal [facility] Comprehensive Metabolic Prof ilon 09-29-2023 Albumin [Mass/Vol] 2.9 g/dL Low 3.2-5.0 [facility] Comment on above: Performed By: #### L 501.5200, L500.4050, L100.0100 ####[facility] [address] [place], [address] Albumin/Globulin [Mass ratio] 0.9 {ratio} Normal 0.9-2.4 [facility] Comment on above: Performed By: #### L 501.5200, L500.4050, L100.0100 ####[facility] [address] [place], [address] ALK P 69 U/L Normal 45-117 [facility] Comment on above: Performed By: #### L 501.5200, L500.4050, L100.0100 ####[facility] [address] [place] [place], [address] ALT [Catalytic activity/Vol] 15 U/L Low 16-61 [facility] Comment on above: Performed By: #### L 501.5200, L500.4050, L100.0100 ####[facility] [address] [place], [address] AST [Catalytic activity/Vol] 20 U/L Normal 15-37 [facility] Comment on above: Performed By: #### L 501.5200, L500.4050, L100.0100 ####[facility] [address] [place], [address] Bilirubin [Mass/Vol] 0.40 mg/dL Normal 0.20-1.00 [facility] Comment on above: Result Comment: For patients on eltrombopag therapy, use of Dimension [place] TBIL is not recommended. Performed By: #### L 501.5200, L500.4050, L100.0100 ####[facility] [address] [place], [address] BUN/CRE 18.5 RATIO Normal 10-20 [facility] Comment on above: Performed By: #### L 501.5200, L500.4050, L100.0100 ####[facility] [address] [place], [address] CA,Total 8.4 mg/dL Low 8.5-10.1 [facility] Comment on above: Performed By: #### L 501.5200, L500.4050, L100.0100 ####[facility] [address] [place], [address] Chloride [Moles/Vol] 107 mmol/L Normal 98-107 [facility] Comment on above: Performed By: #### L 501.5200, L500.4050, L100.0100 ####[facility] [address] [place], [address] CO2 [Moles/Vol] 29.0 mmol/L Normal 21.0-32.0 [facility] Comment on above: Performed By: #### L 501.5200, L500.4050, L100.0100 ####[facility] [address] [place], [address] Creatinine [Mass/Vol] 0.81 mg/dL Normal 0.70-1.30 [facility] Comment on above: Result Comment: The validity of the calculated GFR GFRAA in patients over70 years has not been determined. Clinical correlation isessential. Performed By: #### L 501.5200, L500.4050, L100.0100 ####[facility] [address] [place], [address] ECRCL 76.18 ml/min Normal [facility] Comment on above: Performed By: #### L 501.5200, L500.4050, L100.0100 ####[facility] [address] [place], [address] EST GFR - AA 117 mL/min Normal >60 [facility] Comment on above: Result Comment: Afri can [place] GFR Calc Performed By: #### L 501.5200, L500.4050, L100.0100 ####[facility] [address] [place], [address] GAP 5 Normal 5-15 [facility] Comment on above: Performed By: #### L 501.5200, L500.4050, L100.0100 ####[facility] [address] [place], [address] GFR/1.73 sq M.predicted among non-blacks MDRD (S/P/Bld) [Vol rate/Area] 97 mL/min/{1.73_m2} Normal >60 [facility] Comment on above: Result Comment: Non- GFR Calc Performed By: #### L 501.5200, L500.4050, L100.0100 ####[facility] [address] [place], [address] Globulin (S) [Mass/Vol] 3.4 g/dL Normal 2.2-4.2 [facility] Comment on above: Performed By: #### L 501.5200, L500.4050, L100.0100 ####[facility] [address] [place], [address] Glucose [Mass/Vol] 179 mg/dL High 74-106 [facility] Comment on above: Result Comment: Fast ing Glucose result greater than or equal to 126 mg/dLsuggests DIABETES MELLITUS per A.D.A. criteria. Performed By: #### L 501.5200, L500.4050, L100.0100 ####[facility] [address] [place], [address] Potassium [Moles/Vol] 3.3 mmol/L Low 3.5-5.1 [facility] Comment on above: Performed By: #### L 501.5200, L500.4050, L100.0100 ####[facility] [address] [place], [address] Sodium [Moles/Vol] 141 mmol/L Normal 136-145 [facility] Comment on above: Performed By: #### L 501.5200, L500.4050, L100.0100 ####[facility] [address] [place], [address] T PROT 6.3 g/dL Low 6.4-8.2 [facility] Comment on above: Performed By: #### L 501.5200, L500.4050, L100.0100 ####[facility] [address] [place], [address] Urea nitrogen [Mass/Vol] 15 mg/dL Normal 7-18 [facility] Comment on above: Performed By: #### L 501.5200, L500.4050, L100.0100 ####[facility] [address] [place], [address] EGD Reporton 09-29-2023 EGD Report Normal [facility] ENTERIC PATHOGEN PANEL STOOL on 09-29-2023 EP PANEL Normal [facility] Comment on above: Performed By: #### M 100.637, M100.0605, M100.6796 ####[facility] [address] [place], [address] Gram Stainon 09-29-2023 GS List Antibiotics [place] 48 Hours? none Acceptable Specimen? Yes (<25 Epithelial cells per/lpf) Gram Stain 3+ Gram positive cocci in chains 4+ White Blood Cells No Epithelial cells Normal [facility] Comment on above: Performed By: #### M 100.2000, M100.2400 ####[facility] [address] [place], [address] HH, Hemoglobin AND Hematocri ton 09-29-2023 Hematocrit (Bld) [Volume fraction] 36.7 % Low 40-54 [facility] Comment on above: Performed By: #### L 100.0600 ####[facility] [address] [place], [address] Hemoglobin (Bld) [Mass/Vol] 11.3 g/dL Low 13.0-16.5 [facility] Comment on above: Performed By: #### L 100.0600 ####[facility] [address] [place], [address] MR/POSTOP.ANEon 09-29-2023 MR/POSTOP.ANE Normal [facility] MR/[id number] 09-29-2023 MR/POSTOPAN2 Normal [facility] Magnesiumon 09-29-2023 Magnesium [Mass/Vol] 1.8 mg/dL Normal 1.6-2.6 [facility] Comment on above: Performed By: #### L 501.5200, L500.4050, L100.0100 ####[facility] [address] [place], [address] Partial Thromboplast Timeon 09-29-2023 aPTT Coag (Bld) [Time] 36.2 s Normal 24.1-36.2 [facility] Comment on above: Performed By: #### L 300.4310, L300.3900 ####[facility] [address] [place], [address] Prothrombin Time w/INRon INR Coag (PPP) [Relative time] 1.1 {INR} Normal [facility] Comment on above: Performed By: #### L 300.4310, L300.3900 ####[facility] [address] [place], [address] PT Coag (PPP) [Time] 13.8 s Normal 11.7-14.9 [facility] Comment on above: Performed By: #### L 300.4310, L300.3900 ####[facility] [address] [place], [address] Special Stain Group Ion 09-01 Special Stain Group I Normal [facility] Comment on above: Performed By: #### P SSI ####[facility] [address] [place], [address] Stool Lactoferrin/WBCon 09-01 WBCST Is the patient recei ving laxatives? Y New/unexplained onset of 3 or more stools in past 24 hrs? Y Normal Reference Range = Negative Fecal WBC Lactoferrin A Positive: Fecal WBC Lactoferrin present A Normal [facility] Comment on above: Performed By: #### M 100.637, M100.0605, M100.6796 ####[facility] [address] [place], [address] 12 Lead EKGon 09-28-2023 12 Lead EKG Normal [facility] BNP,B-Type NATRIURETIC PEPTI Vannessa 09-28-2023 Natriuretic peptide B (Bld) [Mass/Vol] 103.1 pg/mL High 0-100 [facility] Comment on above: Order Comment: AN @E RROR IN TESTING THE FIRST TIME. THAT THE CORRECTRESULT IS @IN THERE NOW. 09/28/23 1846 DWAYNE Result Comment: AMENDED REPORT 09/28/23 1836 B-TYPE JOSE PEP previously reported as: 68.8 pg/mL Performed By: #### L 503.6620 ####[facility] [address] [place], [address] Blood [facility] by [facility] UCLAon 024 LUCY TEST Positive Normal [facility] Comment on above: Performed By: #### L 9000.0800 ####[facility] [address] [place], [address] Base excess Calc (Bld) [Moles/Vol] -1 mmol/L Normal -2 to +2 [facility] Comment on above: Performed By: #### L 9000.0800 ####[facility] [address] [place], [address] Blood Gas Type ART Normal [facility] Comment on above: Performed By: #### L 9000.0800 ####[facility] [address] [place], [address] CO2 [Moles/Vol] 25 mmol/L Normal [facility] Comment on above: Performed By: #### L 9000.0800 ####[facility] [address] [place], [address] FI02 4.0 Normal [facility] Comment on above: Performed By: #### L 9000.0800 ####[facility] [address] [place], [address] HCO3 (Bld) [Moles/Vol] 23.8 mmol/L Normal 22-26 [facility] Comment on above: Performed By: #### L 9000.0800 ####[facility] [address] [place], [address] Mode Not entered [facility] Comment on above: Performed By: #### L 9000.0800 ####[facility] [address] [place], [address] O2 Delivery Dev Cannula Normal [facility] Comment on above: Performed By: #### L 9000.0800 ####[facility] [address] [place], [address] pCO2 37.8 mmHg Normal 35-45 [facility] Comment on above: Performed By: #### L 9000.0800 ####[facility] [address] [place], [address] pH (Bld) 7.41 [pH] Normal 7.35-7.45 [facility] Comment on above: Performed By: #### L 9000.0800 ####[facility] [address] [place], [address] PO2 97 mmHG Normal 75-100 [facility] Comment on above: Performed By: #### L 9000.0800 ####[facility] [address] [place], [address] SITE L Radial Normal [facility] Comment on above: Performed By: #### L 9000.0800 ####[facility] [address] [place], [address] SO2 98 Normal 95-99 [facility] Comment on above: Performed By: #### L 9000.0800 ####[facility] [address] [place], [address] CBC W/Diff, Automatedon 08-31 Absolute Lymph 0.26 X10 3/uL Low 0.83-4.51 [facility] Comment on above: Performed By: #### L 501.4020, L501.2450, L503.6005, L500.4050, L100.0100 ####[facility] [address] [place], [address] Absolute Neut 8.3 X10 3/uL High 2.0-7.7 [facility] Comment on above: Performed By: #### L 501.4020, L501.2450, L503.6005, L500.4050, L100.0100 ####[facility] [address] [place], [address] Basophils/100 WBC (Bld) 0.1 % Normal 0-1 [facility] Comment on above: Performed By: #### L 501.4020, L501.2450, L503.6005, L500.4050, L100.0100 ####[facility] [address] [place], [address] Eosinophils/100 WBC (Bld) 0.1 % Normal 0-5 [facility] Comment on above: Performed By: #### L 501.4020, L501.2450, L503.6005, L500.4050, L100.0100 ####[facility] [address] [place], [address] Erythrocyte distribution width (RBC) [Ratio] 15.9 % High 11.6-14.6 [facility] Comment on above: Performed By: #### L 501.4020, L501.2450, L503.6005, L500.4050, L100.0100 ####[facility] [address] [place], [address] Hematocrit (Bld) [Volume fraction] 35.6 % Low 40-54 [facility] Comment on above: Performed By: #### L 501.4020, L501.2450, L503.6005, L500.4050, L100.0100 ####[facility] [address] [place], [address] Hemoglobin (Bld) [Mass/Vol] 10.9 g/dL Low 13.0-16.5 [facility] Comment on above: Performed By: #### L 501.4020, L501.2450, L503.6005, L500.4050, L100.0100 ####[facility] [address] [place], [address] IG% 0.600 Normal 0.0-0.9 [facility] Comment on above: Result Comment: IG% - Immature Granulocytes (promyelocytes, myelocytes andmetamyelocytes) > 1% indicates that a LEFT SHIFT is Present. Performed By: #### L 501.4020, L501.2450, L503.6005, L500.4050, L100.0100 ####[facility] [address] [place], [address] Lymphocytes/100 WBC (Bld) 2.9 % Low 19-41 [facility] Comment on above: Performed By: #### L 501.4020, L501.2450, L503.6005, L500.4050, L100.0100 ####[facility] [address] [place], [address] MCH (RBC) [Entitic mass] 27.0 pg Normal 27.0-32.0 [facility] Comment on above: Performed By: #### L 501.4020, L501.2450, L503.6005, L500.4050, L100.0100 ####[facility] [address] [place], [address] MCHC (RBC) [Mass/Vol] 30.6 g/dL Low 32-36 [facility] Comment on above: Performed By: #### L 501.4020, L501.2450, L503.6005, L500.4050, L100.0100 ####[facility] [address] [place], [address] MCV (RBC) [Entitic vol] 88.3 fL Normal 80-94 [facility] Comment on above: Performed By: #### L 501.4020, L501.2450, L503.6005, L500.4050, L100.0100 ####[facility] [address] [place], [address] Monocytes/100 WBC (Bld) 4.4 % Normal 0-10 [facility] Comment on above: Performed By: #### L 501.4020, L501.2450, L503.6005, L500.4050, L100.0100 ####[facility] [address] [place], [address] Neutrophils/100 WBC (Bld) 91.9 % High 47-70 [facility] Comment on above: Performed By: #### L 501.4020, L501.2450, L503.6005, L500.4050, L100.0100 ####[facility] [address] [place], [address] Nucleated RBC (Bld) [#/Vol] 0 10*3/uL Normal 0-5 [facility] Comment on above: Performed By: #### L 501.4020, L501.2450, L503.6005, L500.4050, L100.0100 ####[facility] [address] [place], [address] Platelet mean volume (Bld) [Entitic vol] 9.0 fL Normal 6.2-12.0 [facility] Comment on above: Performed By: #### L 501.4020, L501.2450, L503.6005, L500.4050, L100.0100 ####[facility] [address] [place], [address] Platelets (Bld) [#/Vol] 206 10*3/uL Normal 150-450 [facility] Comment on above: Performed By: #### L 501.4020, L501.2450, L503.6005, L500.4050, L100.0100 ####[facility] [address] [place], [address] RBC (Bld) [#/Vol] 4.03 10*6/uL Low 4.6-6.2 [facility] Comment on above: Performed By: #### L 501.4020, L501.2450, L503.6005, L500.4050, L100.0100 ####[facility] [address] [place], [address] RDW SD 51.7 fl High 35.1-43.9 [facility] Comment on above: Performed By: #### L 501.4020, L501.2450, L503.6005, L500.4050, L100.0100 ####[facility] [address] [place], [address] WBC (Bld) [#/Vol] 9.0 10*3/uL Normal 4.4-11.0 [facility] Comment on above: Performed By: #### L 501.4020, L501.2450, L503.6005, L500.4050, L100.0100 ####[facility] [address] [place], [address] CTA Abd/Pelvis W/WO Contrast on 09-28-2023 CTA Abd/Pelvis W/WO Contrast Normal [facility] Chest 1 View (Portable)on Chest 1 View (Portable) Normal [facility] Chest WITH Contraston 2023 Chest WITH Contrast Normal [facility] Comprehensive Metabolic Prof ilon 09-28-2023 Albumin [Mass/Vol] 2.8 g/dL Low 3.2-5.0 [facility] Comment on above: Order Comment: 'TROP ' Serial specimen #1, #2 or #3: 1 Performed By: #### L 501.4020, L501.2450, L503.6005, L500.4050, L100.0100 ####[facility] [address] [place], [address] Albumin/Globulin [Mass ratio] 0.8 {ratio} Low 0.9-2.4 [facility] Comment on above: Order Comment: 'TROP ' Serial specimen #1, #2 or #3: 1 Performed By: #### L 501.4020, L501.2450, L503.6005, L500.4050, L100.0100 ####[facility] [address] [place], [address] ALK P 80 U/L Normal 45-117 [facility] Comment on above: Order Comment: 'TROP ' Serial specimen #1, #2 or #3: 1 Performed By: #### L 501.4020, L501.2450, L503.6005, L500.4050, L100.0100 ####[facility] [address] [place], [address] ALT [Catalytic activity/Vol] 19 U/L Normal 16-61 [facility] Comment on above: Order Comment: 'TROP ' Serial specimen #1, #2 or #3: 1 Performed By: #### L 501.4020, L501.2450, L503.6005, L500.4050, L100.0100 ####[facility] [address] [place], [address] AST [Catalytic activity/Vol] 20 U/L Normal 15-37 [facility] Comment on above: Order Comment: 'TROP ' Serial specimen #1, #2 or #3: 1 Performed By: #### L 501.4020, L501.2450, L503.6005, L500.4050, L100.0100 ####[facility] [address] [place], [address] Bilirubin [Mass/Vol] 0.40 mg/dL Normal 0.20-1.00 [facility] Comment on above: Order Comment: 'TROP ' Serial specimen #1, #2 or #3: 1 Result Comment: For patients on eltrombopag therapy, use of Dimension [place] TBIL is not recommended. Performed By: #### L 501.4020, L501.2450, L503.6005, L500.4050, L100.0100 ####[facility] [address] [place], [address] BUN/CRE 19.4 RATIO Normal 10-20 [facility] Comment on above: Order Comment: 'TROP ' Serial specimen #1, #2 or #3: 1 Performed By: #### L 501.4020, L501.2450, L503.6005, L500.4050, L100.0100 ####[facility] [address] [place], [address] CA,Total 8.6 mg/dL Normal 8.5-10.1 [facility] Comment on above: Order Comment: 'TROP ' Serial specimen #1, #2 or #3: 1 Performed By: #### L 501.4020, L501.2450, L503.6005, L500.4050, L100.0100 ####[facility] [address] [place], [address] Chloride [Moles/Vol] 108 mmol/L High 98-107 [facility] Comment on above: Order Comment: 'TROP ' Serial specimen #1, #2 or #3: 1 Performed By: #### L 501.4020, L501.2450, L503.6005, L500.4050, L100.0100 ####[facility] [address] [place], [address] CO2 [Moles/Vol] 29.0 mmol/L Normal 21.0-32.0 [facility] Comment on above: Order Comment: 'TROP ' Serial specimen #1, #2 or #3: 1 Performed By: #### L 501.4020, L501.2450, L503.6005, L500.4050, L100.0100 ####[facility] [address] [place], [address] Creatinine [Mass/Vol] 0.93 mg/dL Normal 0.70-1.30 [facility] Comment on above: Order Comment: 'TROP ' Serial specimen #1, #2 or #3: 1 Result Comment: The validity of the calculated GFR GFRAA in patients over70 years has not been determined. Clinical correlation isessential. Performed By: #### L 501.4020, L501.2450, L503.6005, L500.4050, L100.0100 ####[facility] [address] [place], [address] ECRCL 66.35 ml/min Normal [facility] Comment on above: Order Comment: 'TROP ' Serial specimen #1, #2 or #3: 1 Performed By: #### L 501.4020, L501.2450, L503.6005, L500.4050, L100.0100 ####[facility] [address] [place], [address] EST GFR - AA 101 mL/min Normal >60 [facility] Comment on above: Order Comment: 'TROP ' Serial specimen #1, #2 or #3: 1 Result Comment: Afri can [place] GFR Calc Performed By: #### L 501.4020, L501.2450, L503.6005, L500.4050, L100.0100 ####[facility] [address] [place], [address] GAP 3 Low 5-15 [facility] Comment on above: Order Comment: 'TROP ' Serial specimen #1, #2 or #3: 1 Performed By: #### L 501.4020, L501.2450, L503.6005, L500.4050, L100.0100 ####[facility] [address] [place], [address] GFR/1.73 sq M.predicted among non-blacks MDRD (S/P/Bld) [Vol rate/Area] 83 mL/min/{1.73_m2} Normal >60 [facility] Comment on above: Order Comment: 'TROP ' Serial specimen #1, #2 or #3: 1 Result Comment: Non- GFR Calc Performed By: #### L 501.4020, L501.2450, L503.6005, L500.4050, L100.0100 ####[facility] [address] [place], [address] Globulin (S) [Mass/Vol] 3.5 g/dL Normal 2.2-4.2 [facility] Comment on above: Order Comment: 'TROP ' Serial specimen #1, #2 or #3: 1 Performed By: #### L 501.4020, L501.2450, L503.6005, L500.4050, L100.0100 ####[facility] [address] [place], [address] Glucose [Mass/Vol] 170 mg/dL High 74-106 [facility] Comment on above: Order Comment: 'TROP ' Serial specimen #1, #2 or #3: 1 Result Comment: Fast ing Glucose result greater than or equal to 126 mg/dLsuggests DIABETES MELLITUS per A.D.A. criteria. Performed By: #### L 501.4020, L501.2450, L503.6005, L500.4050, L100.0100 ####[facility] [address] [place], [address] Potassium [Moles/Vol] 3.7 mmol/L Normal 3.5-5.1 [facility] Comment on above: Order Comment: 'TROP ' Serial specimen #1, #2 or #3: 1 Performed By: #### L 501.4020, L501.2450, L503.6005, L500.4050, L100.0100 ####[facility] [address] [place], [address] Sodium [Moles/Vol] 140 mmol/L Normal 136-145 [facility] Comment on above: Order Comment: 'TROP ' Serial specimen #1, #2 or #3: 1 Performed By: #### L 501.4020, L501.2450, L503.6005, L500.4050, L100.0100 ####[facility] [address] [place], [address] T PROT 6.3 g/dL Low 6.4-8.2 [facility] Comment on above: Order Comment: 'TROP ' Serial specimen #1, #2 or #3: 1 Performed By: #### L 501.4020, L501.2450, L503.6005, L500.4050, L100.0100 ####[facility] [address] [place], [address] Urea nitrogen [Mass/Vol] 18 mg/dL Normal 7-18 [facility] Comment on above: Order Comment: 'TROP ' Serial specimen #1, #2 or #3: 1 Performed By: #### L 501.4020, L501.2450, L503.6005, L500.4050, L100.0100 ####[facility] [address] [place], [address] Emergency Department Summary on 09-28-2023 Emergency Department Summary Normal [facility] Ferritinon 09-28-2023 Ferritin [Mass/Vol] 63 ng/mL Normal 26-388 [facility] Comment on above: Order Comment: FROM [facility] 1732Comments: add on if possibleadd on if possible Performed By: #### L 503.6030, L503.6550, L100.9950 ####[facility] [address] [place], [address] H AND P Exam - Hospitaliston 09-28-2023 H&P Exam - Hospitalist Normal [facility] Hemoglobinon 09-28-2023 Hemoglobin (Bld) [Mass/Vol] 10.5 g/dL Low 13.0-16.5 [facility] Comment on above: Performed By: #### L 100.1300 ####[facility] [address] [place], [address] Hemoglobin (Bld) [Mass/Vol] 11.7 g/dL Low 13.0-16.5 [facility] Comment on above: Performed By: #### L 100.1300 ####[facility] [address] [place], [address] Iron+Iron Binding Capacityon 09-28-2023 Iron [Mass/Vol] 26 ug/dL Low 65-175 [facility] Comment on above: Order Comment: FROM [facility] 1732Comments: add on if possibleadd on if possible Performed By: #### L 503.6030, L503.6550, L100.9950 ####[facility] [address] [place], [address] IRON SATURATION 9.3 Low 15.0-55.0 [facility] Comment on above: Order Comment: FROM [facility] 1732Comments: add on if possibleadd on if possible Performed By: #### L 503.6030, L503.6550, L100.9950 ####[facility] [address] [place], [address] TIBC 281 ug/dL Normal 250-450 [facility] Comment on above: Order Comment: FROM [facility] 1732Comments: add on if possibleadd on if possible Performed By: #### L 503.6030, L503.6550, L100.9950 ####[facility] [address] [place], [address] L501.4020on 09-28-2023 TROPONIN-I HS 30 pg/mL Normal 3.0-78.0 [facility] Comment on above: Order Comment: 'TROP ' Serial specimen #1, #2 or #3: 1 Result Comment: Plea se Note: New Test Units and Gender Specific Reference Ranges. For more information see Policy Stat Procedure [place] High Sensitivity Troponin (TNIH) and attachments. Performed By: #### L 501.4020, L501.2450, L503.6005, L500.4050, L100.0100 ####[facility] [address] [place], [address] Lactic Acidon 09-28-2023 Lactate [Moles/Vol] 1.9 mmol/L Normal 0.4-1.9 [facility] Comment on above: Order Comment: Y Performed By: #### L 501.4020, L501.2450, L503.6005, L500.4050, L100.0100 ####[facility] [address] [place], [address] Lipaseon 09-28-2023 Lipase [Catalytic activity/Vol] 38 U/L Normal 13-75 [facility] Comment on above: Order Comment: 'TROP ' Serial specimen #1, #2 or #3: 1 Result Comment: Plea se note:LIPASE revised reference range effective 22.New Lipase methodology. Expected to produce lower valuesthan the previous assay method.NEW Reference Range: 13 - 75 U/L Performed By: #### L 501.4020, L501.2450, L503.6005, L500.4050, L100.0100 ####[facility] [address] [place], [address] M100.678on 09-28-2023 M100.678 Normal [facility] Comment on above: Performed By: #### M 100.678 ####[facility] [address] [place], [address] MR/CON.PCM.GIon 09-28-2023 MR/CON.PCM.GI Normal [facility] RESPIRATORY PANEL MOLECULARo n 09-28-2023 RP PANEL Normal [facility] Comment on above: Performed By: #### M 100.638 ####[facility] [address] [place], [address] Retic Panelon 09-28-2023 IM RET FRACTION 25.90 High 3.00-15.90 [facility] Comment on above: Order Comment: Comme nts: Add onto labs if possible Performed By: #### L 503.6030, L503.6550, L100.9950 ####[facility] [address] [place], [address] RET-HE 28.4 pg Low 30-35 [facility] Comment on above: Order Comment: Comme nts: Add onto labs if possible Performed By: #### L 503.6030, L503.6550, L100.9950 ####[facility] [address] [place], [address] Retic Count 1.70 High 0.5-1.5 [facility] Comment on above: Order Comment: Comme nts: Add onto labs if possible Performed By: #### L 503.6030, L503.6550, L100.9950 ####[facility] [address] [place], [place], [id number] Stool Occult Blood iFOBon STOB Normal [facility] Comment on above: Performed By: #### M 100.7900 ####[facility] [address] [place], [address] Type AND Screenon 09-28-2023 Ab SCREEN GEL Negative Normal [facility] Comment on above: Order Comment: A Performed By: #### B TS ####[facility] [address] [place], [address] Urinalysis, Completeon 09-27 RBC 0-5 SEEN Normal 0-5 [facility] Comment on above: Order Comment: CLEAN CATCH Performed By: #### L 400.0001 ####[facility] [address] [place], [address] BACTERIA 0 SEEN Normal None Seen [facility] Comment on above: Order Comment: CLEAN CATCH Performed By: #### L 400.0001 ####[facility] [address] [place], [address] EPI,SQUAMOUS 0 SEEN Normal 0-5 [facility] Comment on above: Order Comment: CLEAN CATCH Performed By: #### L 400.0001 ####[facility] [address] [place], [address] Mucus Ql (Urine sed) 0 SEEN Normal [facility] Comment on above: Order Comment: CLEAN CATCH Performed By: #### L 400.0001 ####[facility] [address] [place], [address] WBC 0 SEEN Normal 0-5 [facility] Comment on above: Order Comment: CLEAN CATCH Performed By: #### L 400.0001 ####[facility] [address] [place], [address] CNPNon 09-25-2023 CNPN Normal [facility] CNOVon 09-21-2023 CNOV Normal [facility] CNOVon 09-16-2023 CNOV Normal [facility] ALLIED HEALTHon 06-17-2023 ALLIED HEALTH HNO ID: [id number] Author: VIRGILIO HUSSEIN RT(Mikhail) Service: Radiology Author Type: Technologist Type: Allied Health Filed: 06/17/2023 11:07 Note Text: Radiology Service Progress Note PATIENT NAME: Oswaldo Corley DATE OF SERVICE: June 17, 2023 TIME: 10:21 AM PATIENT IDENTITY VERIFICATION COMPLETED USING TWO (2) IDENTIFIERS: Name and Date of confirmed by patient verbally and Name and Date of confirmed by identification band. FALL SCREENING: Has the patient had 2 falls in the last year or 1 fall with injury or currently using an Ambulatory Assistive Device (Walker, Cane, Wheelchair, Crutches, etc.)? No PATIENT GENDER DATA: Male PATIENT RELEVANT IMPLANT DATA REVIEWED: Yes PATIENT PRESENTS WITH AN IMPLANTABLE OR ATTACHED TOWER HELPER: No RADIOLOGY DEPARTMENT: Biopsy - Lung PERIPHERAL IV DATA: Not applicable SIGNED BY: RT Namita(Mikhail) June 17, 2023 10:[address] [facility] CT BIOPSY LUNGon 06-17-2023 CT BIOPSY LUNG * * *Final Report* * * DATE OF EXAM: Jun 17 2023 11:04AM [facility] [address] - CT BIOPSY LUNG / PROCEDURE REASON: Results * * * * Physician Interpretation * * * * HISTORY: Squamous carcinoma of lung, left (HCC) Squamous carcinoma, left lung TECHNIQUE: Pre-procedure Sign-in: Safety Checklist Performed: Yes. The team confirmed the correct patient, correct site, site marking, correct procedure, and correct position. Timeout Time: 10:15 Sign-out: Communication performed: Yes. 11 mL 1% lidocaine was infused for local anesthesia. CT Radiation dose: Integrated Dose-length product (DLP) for this visit = 1654 mGy*cm. CT Dose Reduction Employed: Automated exposure control(AEC) and iterative recon COMPARISON: 05/21/2023 CT chest with IV contrast RESULT: Thick-walled pleural-based cavitary area along the left lateral chest wall was biopsied through a 17-gauge guiding needle was placed under guidance of CT fluoroscopy. 18-gauge tissue cores were taken through the guiding needle with a spring-loaded device. CT scanning afterwards showed no hematoma or pneumothorax. IMPRESSION: CT-guided left thoracic biopsy as detailed. Neonatal Pediatric Nurse: ARTEM Transcribe Date/Time: Jun 17 2023 12:38P Dictated by : ADI CORTEZ MD This examination was interpreted and the report reviewed and electronically signed by: ADI CORTEZ MD on Jun 17 2023 12:40PM EST [id number] Normal [facility] SURGICAL PATHOLOGYon 024 CASE REPORT Normal [facility] Comment on above: Order Comment: Fab doran Type: TISSUE SPECIMEN Ordering Facility: [facility] Address: [address] [place] [address] Result Comment: Surg ica Pathology Report Case: [id number] Authorizing Provider: Adi Cortez MD Collected: 06/17/2023 10:58 AM Ordering Location: [facility] Radiology Received: 06/17/2023 11:41 AM Pathologist: Roberto Carlos Rust MD Specimen: Lung, Left, Biopsy Performed By: #### S #### [facility] CLIA [id number] [address] [place] [address] [place] CLINICAL HISTORY Ca Left Lung. Bx is of the thickened PET positive wall of a left lung or pleural cavity Normal [facility] Comment on above: Order Comment: Fab doran Type: TISSUE SPECIMEN Ordering Facility: [facility] Address: [address] [place] [address] Performed By: #### S #### [facility] CLIA [id number] [address] [place] [address] [place] FINAL DIAGNOSIS Normal [facility] Comment on above: Order Comment: Fab doran Type: TISSUE SPECIMEN Ordering Facility: [facility] Address: [address] [place] [address] Result Comment: Lung , left, biopsy: -Hyalinized fibrous tissue with giant cell reaction to polarizable material. -No malignancy identified. Performed By: #### S #### [facility] CLIA [id number] [address] [place] [address] [place] FINAL PERFORMING LAB Normal [facility] Comment on above: Order Comment: Speci espinoza Type: TISSUE SPECIMEN Ordering Facility: [facility] Address: [address] [place] [address] Result Comment: Diag nostic interpretation performed at [facility], [address] [place] [address] CLIA# [id number] Corporate Compliance Director: Abbe Wilcox M.D. Performed By: #### S #### [facility] CLIA [id number] [address] [place] [address] GROSS DESCRIPTION [facility] Comment on above: Order Comment: Sunhawa doran Type: TISSUE SPECIMEN Ordering Facility: [facility] Address: [address] [place] [address] Result Comment: A. L sowmya, Left, Biopsy Received in formalin are multiple pieces of darling-red, soft tissue aggregating to 0.9 x 0.1 x <0.1 cm. Totally submitted in one cassette. Specimen may not survive processing. [facility] June 17, 2023 2:55 PM. Gross examination performed at [facility], [address] [place] [address] Performed By: #### S #### [facility] CLIA [id number] [address] [place] [address] [place] XR CHEST 1V FRONTALon 2023 XR CHEST 1V FRONTAL * * *Final Report* * * DATE OF EXAM: Jun 17 2023 2:16PM MDX 5290 - XR CHEST 1V FRONTAL / PROCEDURE REASON: Post-operative/post-procedu re assessment * * * * Physician Interpretation * * * * EXAMINATION: CHEST RADIOGRAPH (SINGLE VIEW AP OR PA) CLINICAL HISTORY: Post-operative/post-procedu re assessment MQ: [id number] Comparison: 05/21/2023 CT chest RESULT: Lines, tubes, and devices: None. Lungs and pleura: No pneumothorax status post left lung biopsy. Cavity on the lower left and nodule in the upper right are again present. Cardiomediastinal silhouette: Normal cardiomediastinal silhouette. Other: . IMPRESSION: No pneumothorax status post left lung biopsy Neonatal Pediatric Nurse: ARTEM Transcribe Date/Time: Jun 17 2023 3:08P Dictated by : ADI CORTEZ MD This examination was interpreted and the report reviewed and electronically signed by: ADI CORTEZ MD on Jun 17 2023 3:09PM EST [id number] [facility] OSWALDO CORLEY ([id number]) 1940 M Date Time Provider Department 06/12/23 ELMIRA MENDEZ During your visit today, we recorded the following information about you: Allergies As of Date: 06/12/2023 Noted Allergy Reaction IMDUR (ISOSORBIDE MONONITRATE) 03/14/2015 4 - Hives Comments: Black out and dizziness Date Reviewed: 06/08/2023 Reviewed by: Bela Manzano MD - Fully Assessed Reason for Visit: Radiology Pre Procedure Instructions [1506] Cmt: LEFT lung biopsy Prescriptions as of 06/17/2023 - ezetimibe (ZETIA) 10 mg tablet Take 1 tablet by mouth once daily. - SPIRIVA RESPIMAT 2.5 mcg/actuation inhaler Inhale 2 Puffs as instructed once daily. - LORazepam (ATIVAN) 1 mg tablet Take 1 tablet by mouth three times a day for 90 days. - iv contrast (will be provided with radiology test) CT Chest W -Inject, intravenously, once for 1 dose.No IV access, insert saline lock prior to the beginning of sedation, infusion, injection of imaging exam. Discontinue saline lock post exam. If Pt. has a central line or IVAD, may access for administration according to line specific nursing protocol. Once exam is complete flush line and de-access according to line specific nursing protocol in the CT contrast administration guidelines link. - apixaban (ELIQUIS) 5 mg tab(s) Take 1 tablet by mouth two times a day. - ADVAIR HFA 230-21 mcg/actuation inhaler Inhale 2 Puffs as instructed two times a day. - nitroglycerin sublingual (NITROSTAT) 0.4 mg SL tablet Dissolve 1 tablet under the tongue every 5 minutes as needed. - atorvastatin (LIPITOR) 40 mg tablet Take 1 tablet by mouth once daily. - acetaminophen 325 mg cap Take 650 mg by mouth every 8 hours as needed. - oxyCODONE IR (ROXICODONE) 5 mg immediate release tablet Take 5 mg by mouth four times a day as needed. - guaiFENesin (MUCINEX) 600 mg 12 hr tablet Take 1,200 mg by mouth two times a day. - DULoxetine (CYMBALTA) 30 mg capsule Take 30 mg by mouth once daily. - ondansetron (ZOFRAN) 4 mg tablet 1 tablet as needed. - aspirin, enteric coated (ASPIRIN, ENTERIC COATED) 81 mg EC tablet Take 81 mg by mouth once daily. - albuterol HFA (PROAIR HFA) 90 mcg/actuation inhaler Inhale 2 Puffs as instructed every 4 hours as needed for Wheezing/Shortness of Breath. Problem List As Of Date 06/12/2023 Noted Resolved Hyperlipidemia, mixed [E78.2] 09/27/2009 Prostate cancer (HCC) [C61] 01/31/2015 ASCVD (arteriosclerotic cardiovascular disease)*11/20/2016 09/05/2019 Hypertrophy of prostate with urinary obstructio*11/20/2016 Chronic obstructive pulmonary disease (HCC) [J4*11/20/2016 Essential hypertension [I10] 11/20/2016 Anxiety [F41.9] 04/01/2017 Abdominal aortic aneurysm (AAA) without rupture*11/19/2018 Coronary artery disease involving allakaket acuña*03/18/2019 S/P coronary artery stent placement, status pos*03/18/2019 S/P CABG x 3 [Z95.1] 03/18/2019 Squamous carcinoma of lung, 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.92] 11/29/2020 PAD (peripheral artery disease) (HCC) [I73.9] 04/30/2022 Diabetic ulcer of right foot (HCC) [E11.621, L9*04/30/2022 10/13/2022 Former smoker [Z87.891] 04/30/2022 Pre-operative cardiovascular examination [Z01.8*05/12/2022 Peripheral arterial disease (HCC) [I73.9] 05/13/2022 Atherosclerotic peripheral vascular disease wit*05/14/2022 BPH (benign prostatic hyperplasia) [N40.0] 05/14/2022 Acute and chronic respiratory failure with hypo*06/26/2022 Encounter Status:Closed by ELMIRA MENDEZ on 06/17/[address] [facility] Absolute lymphocyte countOrd ered By: Edward Grant on 05-28-2023 Lymphocytes Auto (Unsp spec) [#/Vol] 0.29 10*3/uL 0.83-4.51 [facility] Automated lymphocyte count a s percentage of total leukocytesOrdered By: Edward Grant on 05-28-2023 Lymphocytes/100 WBC Auto (Unsp spec) 2.9 % 19-41 [facility] Basophil percentageOrdered B y: Edward Grant on 05-28-2023 Basophil percentage 5-10 SEEN /hpf 0-5 [facility] Basophils/100 WBC (Bld) 0.3 % 0-1 [facility] Chloride [Moles/Vol] 115 mmol/L 98-107 [facility] Eosinophils/100 WBC (Bld) 0.2 % 0-5 [facility] Glucose [Mass/Vol] 131 mg/dL 74-106 [facility] Comment on above: Fasting Glucose resu lt greater than or equal to 126 mg/dL suggests DIABETES MELLITUS per A.D.A. criteria. Hemoglobin (Bld) [Mass/Vol] 12.1 g/dL 13.0-16.5 [facility] Monocytes/100 WBC (Bld) 2.7 % 0-10 [facility] Neutrophils (Bld) [#/Vol] 9.5 10*3/uL 2.0-7.7 [facility] Neutrophils/100 WBC (Bld) 93.4 % 47-70 [facility] Potassium [Moles/Vol] 3.4 mmol/L 3.5-5.1 [facility] Sodium [Moles/Vol] 145 mmol/L 136-145 [facility] WBC (Bld) [#/Vol] 10.2 10*3/uL 4.4-11.0 [facility] Bilirubin Test strip Ql (U)O rdered By: Edward Grant on 05-28-2023 Bilirubin Ql (U) Negative Negative [facility] Determination of erythrocyte mean corpuscular volume (MCV)Ordered By: Edward Grant on 05-28-2023 MCV (RBC) [Entitic vol] 91.7 fL 80-94 [facility] Erythrocyte distribution wid th ratioOrdered By: Edward Grant on 05-28-2023 Erythrocyte distribution width (RBC) [Ratio] 15.3 % 11.6-14.6 [facility] Erythrocyte distribution wid th standard deviationOrdered By: [facility] on 05-28-2023 Erythrocyte distribution width (RBC) [Entitic vol] 51.2 fL 35.1-43.9 [facility] Hematocrit Auto (Bld) [Volum e fraction]Ordered By: [facility] on 05-28-2023 Hematocrit (Bld) [Volume fraction] 41.0 % 40-54 [facility] Immature granulocytes/100 WB C Auto (Bld)Ordered By: [facility] on 05-28-2023 Immature granulocytes/100 WBC (Bld) 0.500 % 0.0-0.9 [facility] Comment on above: IG% - Immature Granu locytes (promyelocytes, myelocytes and metamyelocytes) > 1% indicates that a LEFT SHIFT is Present. Ketones Test strip Ql (U)Ord ered By: Edward Grant on 05-28-2023 Ketones Ql (U) 5 mg/dl Negative [facility] Laboratory - Chemistry and C hemistry - challengeOrdered By: Edward Grant on 05-28-2023 CO2 [Moles/Vol] 25.0 mmol/L 21.0-32.0 [facility] Urea nitrogen/Creatinine [Mass ratio] 22.1 mg/mg 10-20 [facility] Laboratory - Hematology and Cell countsOrdered By: Edward Grant on 05-28-2023 MCH (RBC) [Entitic mass] 27.1 pg 27.0-32.0 [facility] MCHC (RBC) [Mass/Vol] 29.5 g/dL 32-36 [facility] Nucleated RBC/100 WBC (Bld) [Ratio] 0 % 0-5 [facility] Platelet mean volume (Bld) [Entitic vol] 8.7 fL 6.2-12.0 [facility] Platelets (Bld) [#/Vol] 246 10*3/uL 150-450 [facility] Mucus LM Ql (Urine sed)Order ed By: Edward Grant on 05-28-2023 Mucus Ql (Urine sed) 0 SEEN /hpf [facility] Nitrite Test strip Ql (U)Ord ered By: Edward Grant on 05-28-2023 Nitrite Ql (U) Negative Negative [facility] No Panel InformationOrdered By: Edward Grant on 05-28-2023 Urine RBC > 100 SEEN /hpf 0-5 [facility] Estimated Creatinine Clearance Calc 78.44 ml/min [facility] Estimated GFR (MDRD) Amer 156 mL/min >60 [facility] Comment on above: GFR Calc Estimated GFR (MDRD) Non-Af Amer 129 mL/min >60 [facility] Comment on above: Non- GFR Calc Protein Test strip Ql (U)Ord ered By: Edward Grant on 05-28-2023 Protein Ql (U) 100 mg/dl Negative [facility] RBC Auto (Bld) [#/Vol]Ordere d By: Edward Grant on 05-28-2023 RBC (Bld) [#/Vol] 4.47 10*6/uL 4.6-6.2 [facility] Serum or plasma calcium ry urement (mass/volume)Ordered By: Edward Grant on 05-28-2023 Calcium [Mass/Vol] 7.1 mg/dL 8.5-10.1 [facility] Serum or plasma creatinine m easurement (mass/volume)Ordered By: Edward Grant on 05-28-2023 Creatinine [Mass/Vol] 0.63 mg/dL 0.70-1.30 [facility] Comment on above: The validity of the calculated GFR & GFRAA in patients over 70 years has not been determined. Clinical correlation is essential. Serum or plasma urea nitroge n measurement (mass/volume)Ordered By: Edward Grant on 05-28-2023 Urea nitrogen [Mass/Vol] 14 mg/dL 7-18 [facility] Squamous epithelial cells de tection in urine sediment by light microscopyOrdered By: Edward Grant on 05-28-2023 Epithelial cells.squamous LM Ql (Urine sed) 0 SEEN /hpf 0-5 [facility] Thin prep Papanicolaou smear with manual screeningOrdered By: Edward Grant on 05-28-2023 Thin prep Papanicolaou smear with manual screening 5 5-15 [facility] Urine blood detectionOrdered By: Edward Grant on 05-28-2023 RBC Ql (U) 250 /ul Negative [facility] Urine clarityOrdered By: Rem us Juanita on 05-28-2023 Clarity (U) Cloudy Clear [facility] Urine color determinationOrd ered By: Edward Grant on 05-28-2023 Color (U) Brown Yellow [facility] Urine glucose detectionOrder ed By: Edward Grant on 05-28-2023 Glucose Ql (U) Normal mg/dl Normal [facility] Urine leukocyte esterase det ection by dipstickOrdered By: Edward Grant on 05-28-2023 Leukocyte esterase Test strip Ql (U) 25 /ul Negative [facility] Urine pHOrdered By: Edward Frias gur on 05-28-2023 pH (U) 6.5 [pH] 5.0 - 8.0 [facility] Urine sediment bacteria coun t by microscopy (number/high power field)Ordered By: Edward Grant on 05-28-2023 Bacteria LM.HPF (Urine sed) [#/Area] RARE /hpf None Seen [facility] Urine specific gravity measu rementOrdered By: Edward Grant on 05-28-2023 Specific gravity (U) [Rel density] 1.020 1.002-1.03 0 [facility] Urine urobilinogen measureme ntOrdered By: Edward Grant on 05-28-2023 Urobilinogen Ql (U) Normal mg/dl Normal [facility] CNPNon 05-27-2023 TONY Telephone ([facility]) BARNEYOSWALDO Bruno ([id number]) 1940 M Date Time Provider Department 05/27/23 MIRELA BARGER During your visit today, we recorded the following information about you: Mirela Barger 05/27/2023 8:19 AM Signed Received request for lung biopsy at [facility]. Sending to radiologist for approval. Mirela Barger 06/09/2023 2:49 PM Signed Lung biopsy has been approved at [facility]. Left VM for pt to schedule. Please have pt call [phone]. Allergies As of Date: 05/27/2023 Noted Allergy Reaction IMDUR (ISOSORBIDE MONONITRATE) 03/14/2015 4 - Hives Comments: Black out and dizziness Date Reviewed: 05/18/2023 Reviewed by: Salazar Meraz DO - Fully Assessed Reason for Visit: Scheduling [0461] Cmt: Lung Biopsy Prescriptions as of 12/31/2023 - metoprolol tartrate, short acting, (LOPRESSOR) 25 mg tablet Take 0.5 tablets by mouth two times a day. Take 0.5 tab po bid. - albuterol HFA (PROAIR HFA) 90 mcg/actuation inhaler Inhale 2 Puffs as instructed every 4 hours as needed for wheezing/shortness of breath. - SPIRIVA RESPIMAT 2.5 mcg/actuation inhaler Inhale 2 Puffs as instructed once daily. - collagenase (SANTYL) ointment Apply to affected area once daily. APPLY TO AFFECTED AREA - OXYGEN, HOME THERAPY, 5 L/min by Nasal Cannula route continuous. - apixaban (ELIQUIS) 5 mg tab(s) Take 1 tablet by mouth two times a day. - atorvastatin (LIPITOR) 40 mg tablet Take 1 tablet by mouth once daily. - ADVAIR HFA 230-21 mcg/actuation inhaler Inhale 2 Puffs as instructed two times a day. - LORazepam (ATIVAN) 1 mg tablet Take 1 tablet by mouth three times a day for 90 days. - iv contrast (will be provided with radiology test) CT Chest W -Inject, intravenously, once for 1 dose.No IV access, insert saline lock prior to the beginning of sedation, infusion, injection of imaging exam. Discontinue saline lock post exam. If Pt. has a central line or IVAD, may access for administration according to line specific nursing protocol. Once exam is complete flush line and de-access according to line specific nursing protocol in the CT contrast administration guidelines link. - predniSONE (DELTASONE) 10 mg tablet Take 1 tablet by mouth once daily. - ezetimibe (ZETIA) 10 mg tablet Take 1 tablet by mouth once daily. - iv contrast (will be provided with radiology test) CT Chest W -Inject, intravenously, once for 1 dose.No IV access, insert saline lock prior to the beginning of sedation, infusion, injection of imaging exam. Discontinue saline lock post exam. If Pt. has a central line or IVAD, may access for administration according to line specific nursing protocol. Once exam is complete flush line and de-access according to line specific nursing protocol in the CT contrast administration guidelines link. - nitroglycerin sublingual (NITROSTAT) 0.4 mg SL tablet Dissolve 1 tablet under the tongue every 5 minutes as needed. - acetaminophen 325 mg cap Take 650 mg by mouth every 8 hours as needed. - oxyCODONE IR (ROXICODONE) 5 mg immediate release tablet Take 5 mg by mouth four times a day as needed. - guaiFENesin (MUCINEX) 600 mg 12 hr tablet Take 1,200 mg by mouth two times a day. - DULoxetine (CYMBALTA) 30 mg capsule Take 30 mg by mouth once daily. - ondansetron (ZOFRAN) 4 mg tablet 1 tablet as needed. - aspirin, enteric coated (ASPIRIN, ENTERIC COATED) 81 mg EC tablet Take 81 mg by mouth once daily. Problem List As Of Date 05/27/2023 Noted Resolved Hyperlipidemia, mixed [E78.2] 09/27/2009 Prostate cancer (HCC) [C61] 01/31/2015 ASCVD (arteriosclerotic cardiovascular disease)*11/20/2016 09/05/2019 Hypertrophy of prostate with urinary obstructio*11/20/2016 Chronic obstructive pulmonary disease (HCC) [J4*11/20/2016 Essential hypertension [I10] 11/20/2016 Anxiety [F41.9] 04/01/2017 Abdominal aortic aneurysm (AAA) without rupture*11/19/2018 Coronary artery disease involving [place]akaket acuña*03/18/2019 S/P coronary artery stent placement, status pos*03/18/2019 S/P CABG x 3 [Z95.1] 03/18/2019 Squamous carcinoma of lung, 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.92] 11/29/2020 PAD (peripheral artery disease) (HCC) [I73.9] 04/30/2022 Diabetic ulcer of right foot (HCC) [E11.621, L9*04/30/2022 10/13/2022 Former smoker [Z87.891] 04/30/2022 Pre-operative cardiovascular examination [Z01.8*05/12/2022 Peripheral arterial disease (HCC) [I73.9] 05/13/2022 Atherosclerotic peripheral vascular disease wit*05/14/2022 BPH (benign prostatic hyperplasia) [N40.0] 05/14/2022 Acute and chronic respiratory failure with hypo*06/26/2022 Encounter Status:Closed by MIRELA BARGER on 12/31/[address] [facility] Progress Noteon 04-03-2023 Progress Note [facility] [address] [facility] [address] Dept: [phone] Dept Loc: [phone] Patient was identified and seen today via Telehealth by agreement and consent. I used the following Telehealth technology: Audio capability only. Total length of call 10 minutes. The patient was offered and advised video for a more comprehensive evaluation, but the patient declined or was unable to use video. Patient location: Patient Location: Home. This patient encounter is appropriate and reasonable under the circumstances: transportation issues . The patient has been advised of the potential risks and limitations of this mode of treatment (including but not limited to the absence of in-person examination) and has agreed to be treated in a remote fashion in spite of them. Any and all of the patient's/patient's family's questions on this issue have been answered and I have made no promises or guarantees to the patient. The patient has also been advised to contact this office for worsening conditions or problems, and seek emergency medical treatment and/or call 911 if the patient deems either necessary. The patient stated that they are currently in the [facility]. If the patient is a minor, permission has been obtained by the parent or guardian for the patient to receive medical care at this visit. Visit type: Established Reason for Visit: Follow-up telephone conversation Assessment and plan I have spoken with Dr. Meraz ([place] oncologist), who agrees that operative treatment is preferred if the suspicious lesions are consistent with malignancy. A CT-guided needle biopsy would be required to determine whether malignancy is present. Given the recent pulmonary embolism and the need for anticoagulation, we both agree that the best course of action would be to delay sampling for 6 weeks until the lung could heal a bit and the anticoagulation could be temporarily discontinued so as to allow the biopsy and prompt resuming of the anticoagulation upon completion of the sampling. We both discussed the risk benefits and alternatives of waiting versus proceeding and we believe that a delay of 6 weeks will not impact this patient's survival expectancy and would be the safest option. I discussed this in detail with the patient and he agrees with that plan. We will contact the patient will be made closer to the time to schedule the biopsy and coordinate discontinuation of his Plavix/Eliquis prior to CT-guided needle biopsy. History of Present Illness Oswaldo Corley is a 82 y.o. male known to Dr. Herrmann for left thoracoscopy, conversion to mini thoracotomy, evacuation of pleural effusion, wedge resection of left lower lobe lung mass with frozen section on 02/20/2020. Per notes, patient has a past medical history of hyperlipidemia, hypertension, AAA, coronary artery disease (CABG x3 vessels), COPD and prostate cancer. Patient underwent a left thoracoscopy, conversion to mini thoracotomy, evacuation of pleural effusion, wedge resection of left lower lobe lung mass with frozen section on 02/20/[address] Herrmann. The patient final pathology report did demonstrate non-small cell lung cancer. Although the gross margins were negative, the tumor cells came to within 1 mm of the stapled margin. He is not a candidate for completion lobectomy due to significant emphysema.The possibility for concomitant radiation or chemotherapy can be considered. Unfortunately, patient is not a candidate for any additional lung surgery given the profound nature of his emphysema. Patient underwent radiation treatment 05/01/2020-05/21/20. Patient has been undergoing close surveillance with CT scans and PET scans. 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 Patient also completed his PET scan on 03/03/23 that demonstrated an abnormal result. Patient saw Dr. Meraz on 03/20/23 and he discussed with patient for a concern for local recurrence and also appears to have pleural based disease medial portion of the left lung in addition to several nodules that are new in the left lung. Patient was started on Levaquin and referred to Dr. Herrmann for an opinion on biopsy. Patient was admitted 03/25/23 for hemoptysis- patient was found to have PE- started on Eliquis. Patient was discharged on 03/27/23. Patient is a former smoker. Patient is on Eliquis and Plavix. Dr. Herrmann last note 03/31/23 This 82-year-old gentleman has previously undergone wedge resection for left-sided lung cancer. His pulmonary function tests show limited pulmonary reserve. A CT scan of the chest reveals bilateral spiculated lesions with PET scan activity that are concerning (more content not included)... Normal [facility] Progress Noteon 03-31-2023 Progress Note [facility] [address] [place] [address] [address] [facility] [address] Dept: [phone] Dept Loc: [phone] Patient was identified and seen today via Telehealth by agreement and consent. I used the following Telehealth technology: Audio capability only. Total length of call 15 minutes. The patient was offered and advised video for a more comprehensive evaluation, but the patient declined or was unable to use video. Patient location: Patient Location: Home. This patient encounter is appropriate and reasonable under the circumstances: transportation issues . The patient has been advised of the potential risks and limitations of this mode of treatment (including but not limited to the absence of in-person examination) and has agreed to be treated in a remote fashion in spite of them. Any and all of the patient's/patient's family's questions on this issue have been answered and I have made no promises or guarantees to the patient. The patient has also been advised to contact this office for worsening conditions or problems, and seek emergency medical treatment and/or call 911 if the patient deems either necessary. The patient stated that they are currently in the state [facility]. If the patient is a minor, permission has been obtained by the parent or guardian for the patient to receive medical care at this visit. Visit type: Established Reason for Visit: Evaluate new lung lesions on CT/PET scan Assessment and plan This 82-year-old gentleman has previously undergone wedge resection for left-sided lung cancer. His pulmonary function tests show limited pulmonary reserve. A CT scan of the chest reveals bilateral spiculated lesions with PET scan activity that are concerning for recurrent and/or new malignancy within the pulmonary parenchyma. In addition, patient recently had a PE (March 2023) and was started on Eliquis. I have discussed this case with the patient's oncologist in [place], Dr. Meraz, who states that nonsurgical treatment would be an option if we documented malignancy. We both agree that a CT-guided biopsy of 1 or more of the pulmonary lesions should be able to help determine whether recurrent/new malignancy is present. However, with a recent pulmonary embolism, we should wait approximately 4 to 6 weeks before discontinuing his Eliquis so that a biopsy can be obtained. I will discuss this plan with the patient during a virtual visit and make arrangements for the biopsy to be performed at [facility] at Dr. Meraz's request. History of Present Illness Oswaldo Corley is a 82 y.o. male known to Dr. Herrmann for left thoracoscopy, conversion to mini thoracotomy, evacuation of pleural effusion, wedge resection of left lower lobe lung mass with frozen section on 02/20/2020. Per notes, patient has a past medical history of hyperlipidemia, hypertension, AAA, coronary artery disease (CABG x3 vessels), COPD and prostate cancer. Patient underwent a left thoracoscopy, conversion to mini thoracotomy, evacuation of pleural effusion, wedge resection of left lower lobe lung mass with frozen section on 02/20/[address] Herrmann. The patient final pathology report did demonstrate non-small cell lung cancer. Although the gross margins were negative, the tumor cells came to within 1 mm of the stapled margin. He is not a candidate for completion lobectomy due to significant emphysema.The possibility for concomitant radiation or chemotherapy can be considered. Unfortunately, patient is not a candidate for any additional lung surgery given the profound nature of his emphysema. Patient underwent radiation treatment 05/01/2020-05/21/20. Patient has been undergoing close surveillance with CT scans and PET scans. 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 Patient also completed his PET scan on 03/03/23 that demonstrated an abnormal result. Patient saw Dr. Meraz on 03/20/23 and he discussed with patient for a concern for local recurrence and also appears to have pleural based disease medial portion of the left lung in addition to several nodules that are new in the left lung. Patient was started on Levaquin and referred to Dr. Herrmann for an opinion on biopsy. Patient was admitted 03/25/23 for hemoptysis- patient was found to have PE- started on Eliquis. Patient was discharged on 03/27/23. Patient is a former smoker. Patient is on Eliquis and Plavix. Past Medical History Past Medical History: Diagnosis Date Aneurysm of aorta (CMS/HCC) Bronchiectasis (CMS/HCC) CAD (coronary artery disease) Chronic hypoxemic respiratory failure (CMS/HCC) COPD (chronic obstructive pulmonary disease) (CMS/HCC) HLD (hyperl (more content not included)... Normal [facility] Activated partial thrombopla stin time (aPTT) in platelet poor plasma by coagulation aOrdered By: Sushila Rivers on 03-26-2023 aPTT Coag (PPP) [Time] 34.2 s 24.1-36.2 [facility] Basophil percentageOrdered B y: Jacob Gabriele on 03-26-2023 Chloride [Moles/Vol] 106 mmol/L 98-107 [facility] Glucose [Mass/Vol] 132 mg/dL 74-106 [facility] Comment on above: Fasting Glucose resu lt greater than or equal to 126 mg/dL suggests DIABETES MELLITUS per A.D.A. criteria. Hemoglobin (Bld) [Mass/Vol] 11.2 g/dL 13.0-16.5 [facility] Potassium [Moles/Vol] 3.7 mmol/L 3.5-5.1 [facility] Sodium [Moles/Vol] 139 mmol/L 136-145 [facility] WBC (Bld) [#/Vol] 10.6 10*3/uL 4.4-11.0 [facility] Determination of erythrocyte mean corpuscular volume (MCV)Ordered By: Jacob Suazo on 03-26-2023 MCV (RBC) [Entitic vol] 91.3 fL 80-94 [facility] Erythrocyte distribution wid th ratioOrdered By: Jacob Suazo on 03-26-2023 Erythrocyte distribution width (RBC) [Ratio] 15.3 % 11.6-14.6 [facility] Erythrocyte distribution wid th standard deviationOrdered By: Jacob Suazo on 03-26-2023 Erythrocyte distribution width (RBC) [Entitic vol] 51.6 fL 35.1-43.9 [facility] Hematocrit Auto (Bld) [Volum e fraction]Ordered By: Jacob Suazo on 03-26-2023 Hematocrit (Bld) [Volume fraction] 36.6 % 40-54 [facility] Laboratory - Chemistry and C hemistry - challengeOrdered By: Jacob Suazo on 03-26-2023 CO2 [Moles/Vol] 30.0 mmol/L 21.0-32.0 [facility] Urea nitrogen/Creatinine [Mass ratio] 21.3 mg/mg 10-20 [facility] Laboratory - Chemistry and C hemistry - challengeOrdered By: Martin Zaragoza on 03-26-2023 Natriuretic peptide B (Bld) [Mass/Vol] 45.3 pg/mL 0-100 [facility] - Hematology and Cell countsOrdered By: Jacob Suazo on 03-26-2023 MCH (RBC) [Entitic mass] 27.9 pg 27.0-32.0 [facility] MCHC (RBC) [Mass/Vol] 30.6 g/dL 32-36 [facility] Platelets (Bld) [#/Vol] 208 10*3/uL 150-450 [facility] No Panel InformationOrdered By: Jacob Suazo on 03-26-2023 Estimated Creatinine Clearance Calc 70.51 ml/min [facility] Estimated GFR (MDRD) Amer 105 mL/min >60 [facility] Comment on above: GFR Calc Estimated GFR (MDRD) Non-Af Amer 87 mL/min >60 [facility] Comment on above: Non- GFR Calc No Panel InformationOrdered By: Martin Zaragoza on 03-26-2023 Troponin I High Sensitivity 22 pg/mL 3.0-78.0 [facility] Comment on above: Please Note: New Rebecca t Units and Gender Specific Reference Ranges. For more information see Policy Stat Procedure [place] High Sensitivity Troponin (TNIH) and attachments. Platelet mean volume Tera-Ec ker (Bld) [Entitic vol]Ordered By: Jacob Suazo on 03-26-2023 Platelet mean volume (Bld) [Entitic vol] 8.6 fL 6.2-12.0 [facility] RBC Auto (Bld) [#/Vol]Ordere d By: Jacob Suazo on 03-26-2023 RBC (Bld) [#/Vol] 4.01 10*6/uL 4.6-6.2 [facility] Serum or plasma calcium ry urement (mass/volume)Ordered By: Jacob Suazo on 03-26-2023 Calcium [Mass/Vol] 8.5 mg/dL 8.5-10.1 [facility] Serum or plasma creatinine m easurement (mass/volume)Ordered By: Jacob Suazo on 03-26-2023 Creatinine [Mass/Vol] 0.89 mg/dL 0.70-1.30 [facility] Comment on above: The validity of the calculated GFR & GFRAA in patients over 70 years has not been determined. Clinical correlation is essential. Serum or plasma urea nitroge n measurement (mass/volume)Ordered By: Jacob Suazo on 03-26-2023 Urea nitrogen [Mass/Vol] 19 mg/dL 7-18 [facility] Thin prep Papanicolaou smear with manual screeningOrdered By: Jacob Suazo on 03-26-2023 Thin prep Papanicolaou smear with manual screening 3 5-15 [facility] Absolute lymphocyte countOrd ered By: Randy Londono on 03-25-2023 Lymphocytes Auto (Unsp spec) [#/Vol] 0.57 10*3/uL 0.83-4.51 [facility] Activated partial thrombopla stin time (aPTT) in platelet poor plasma by coagulation aOrdered By: Randy Londono on 03-25-2023 aPTT Coag (PPP) [Time] 27.1 s 24.1-36.2 [facility] Automated lymphocyte count a s percentage of total leukocytesOrdered By: Randy Londono on 03-25-2023 Lymphocytes/100 WBC Auto (Unsp spec) 3.7 % 19-41 [facility] Basophil percentageOrdered B y: Randy Londono on 03-25-2023 Lactate [Moles/Vol] 1.0 mmol/L 0.4-2.0 [facility] Lactate [Moles/Vol] 2.3 mmol/L 0.4-2.0 [facility] Comment on above: Critical Result(s) C denzel Kwaku at: 14:08:04 03/25/2023 by: CCrytzer. Results read back by same. Basophils/100 WBC (Bld) 0.2 % 0-1 [facility] Bilirubin [Mass/Vol] 0.50 mg/dL 0.20-1.00 [facility] Comment on above: For patients on eltr ombopag therapy, use of Dimension [place] TBIL is not recommended. Chloride [Moles/Vol] 106 mmol/L 98-107 [facility] Eosinophils/100 WBC (Bld) 0.1 % 0-5 [facility] Glucose [Mass/Vol] 125 mg/dL 74-106 [facility] Comment on above: Fasting Glucose resu lt from 100 to 125 mg/dL suggests IMPAIRED HOMEOSTASIS per A.D.A. criteria. Hemoglobin (Bld) [Mass/Vol] 13.7 g/dL 13.0-16.5 [facility] Monocytes/100 WBC (Bld) 3.2 % 0-10 [facility] Neutrophils (Bld) [#/Vol] 14.4 10*3/uL 2.0-7.7 [facility] Neutrophils/100 WBC (Bld) 92.4 % 47-70 [facility] Potassium [Moles/Vol] 4.5 mmol/L 3.5-5.1 [facility] Protein [Mass/Vol] 7.4 g/dL 6.4-8.2 [facility] Sodium [Moles/Vol] 139 mmol/L 136-145 [facility] WBC (Bld) [#/Vol] 15.6 10*3/uL 4.4-11.0 [facility] Determination of erythrocyte mean corpuscular volume (MCV)Ordered By: Randy Londono on 03-25-2023 MCV (RBC) [Entitic vol] 91.6 fL 80-94 [facility] Erythrocyte distribution wid th ratioOrdered By: Randymaxim Londono on 03-25-2023 Erythrocyte distribution width (RBC) [Ratio] 15.3 % 11.6-14.6 [facility] Erythrocyte distribution wid th standard deviationOrdered By: Randymaxim Londono on 03-25-2023 Erythrocyte distribution width (RBC) [Entitic vol] 51.6 fL 35.1-43.9 [facility] Hematocrit Auto (Bld) [Volum e fraction]Ordered By: Randymaxim Londono on 03-25-2023 Hematocrit (Bld) [Volume fraction] 45.0 % 40-54 [facility] Immature granulocytes/100 WB C Auto (Bld)Ordered By: Randymaxim Londono on 03-25-2023 Immature granulocytes/100 WBC (Bld) 0.400 % 0.0-0.9 [facility] Comment on above: IG% - Immature Granu locytes (promyelocytes, myelocytes and metamyelocytes) > 1% indicates that a LEFT SHIFT is Present. International normalized rat io (INR) calculationOrdered By: Randymaxim Londono on 03-25-2023 INR Coag (PPP) [Relative time] 1.0 {INR} [facility] Laboratory - Chemistry and C hemistry - challengeOrdered By: Randymaxim Londono on 03-25-2023 Albumin/Globulin [Mass ratio] 0.8 {ratio} 0.9-2.4 [facility] ALP [Catalytic activity/Vol] 84 U/L 45-117 [facility] ALT [Catalytic activity/Vol] 20 U/L 16-61 [facility] CO2 [Moles/Vol] 27.0 mmol/L 21.0-32.0 [facility] Globulin (S) [Mass/Vol] 4.0 g/dL 2.2-4.2 [facility] Urea nitrogen/Creatinine [Mass ratio] 17.5 mg/mg 10-20 [facility] Laboratory - CoagulationOrde red By: Randy Londono on 03-25-2023 PT Coag (PPP) [Time] 13.1 s 11.7-14.9 [facility] - Hematology and Cell countsOrdered By: Randy Londono on 03-25-2023 MCH (RBC) [Entitic mass] 27.9 pg 27.0-32.0 [facility] MCHC (RBC) [Mass/Vol] 30.4 g/dL 32-36 [facility] Nucleated RBC/100 WBC (Bld) [Ratio] 0 % 0-5 [facility] Platelets (Bld) [#/Vol] 309 10*3/uL 150-450 [facility] No Panel InformationOrdered By: Randy Londono on 03-25-2023 Estimated Creatinine Clearance Calc 60.92 ml/min [facility] Estimated GFR (MDRD) Amer 89 mL/min >60 [facility] Comment on above: GFR Calc Estimated GFR (MDRD) Non-Af Amer 74 mL/min >60 [facility] Comment on above: Non- GFR Calc Platelet mean volume Tera-Ec ker (Bld) [Entitic vol]Ordered By: Randy Londono on 03-25-2023 Platelet mean volume (Bld) [Entitic vol] 8.7 fL 6.2-12.0 [facility] RBC Auto (Bld) [#/Vol]Ordere d By: Ranyd Londono on 03-25-2023 RBC (Bld) [#/Vol] 4.91 10*6/uL 4.6-6.2 [facility] Serum or plasma calcium ry urement (mass/volume)Ordered By: Randy Londono on 03-25-2023 Calcium [Mass/Vol] 9.5 mg/dL 8.5-10.1 [facility] Serum or plasma creatinine m easurement (mass/volume)Ordered By: Randy Lnodono on 03-25-2023 Creatinine [Mass/Vol] 1.03 mg/dL 0.70-1.30 [facility] Comment on above: The validity of the calculated GFR & GFRAA in patients over 70 years has not been determined. Clinical correlation is essential. Serum or plasma urea nitroge n measurement (mass/volume)Ordered By: Randy Londono on 03-25-2023 Urea nitrogen [Mass/Vol] 18 mg/dL 7-18 [facility] Thin prep Papanicolaou smear with manual screeningOrdered By: Randy Londono on 03-25-2023 Thin prep Papanicolaou smear with manual screening 3.4 g/dL 3.2-5.0 [facility] Thin prep Papanicolaou smear with manual screening 20 U/L 15-37 [facility] Thin prep Papanicolaou smear with manual screening 6 5-15 [facility] Basophil percentageOrdered B y: Bruno Catalan on 03-23-2023 Basophil percentage 0.22 ng/mL 0.0-4.0 [facility] Comment on above: This test was perfor med using the TPSA assay method for [employer] chemistry system. Values obtained with differentassay methods cannot be used interchangably.When changing PSA assays in the course of monitoring apatient, additional sequential testing should be carriedout to confirm baseline values. Absolute lymphocyte countOrd ered By: Cristi Godinez on 11-24-2022 Lymphocytes Auto (Unsp spec) [#/Vol] 0.28 10*3/uL 0.83-4.51 [facility] Basophil percentageOrdered B y: Cristi Godinez on 11-24-2022 Basophils/100 WBC (Bld) 0.2 % 0-1 [facility] Chloride [Moles/Vol] 104 mmol/L 98-107 [facility] Eosinophils/100 WBC (Bld) 0.2 % 0-5 [facility] Glucose [Mass/Vol] 175 mg/dL 74-106 [facility] Comment on above: Fasting Glucose resu lt greater than or equal to 126 mg/dL suggests DIABETES MELLITUS per A.D.A. criteria. Neutrophils (Bld) [#/Vol] 11.4 10*3/uL 2.0-7.7 [facility] Neutrophils/100 WBC (Bld) 92.9 % 47-70 [facility] Potassium [Moles/Vol] 4.5 mmol/L 3.5-5.1 [facility] Sodium [Moles/Vol] 139 mmol/L 136-145 [facility] WBC (Bld) [#/Vol] 12.2 10*3/uL 4.4-11.0 [facility] Blood erythrocytes count (nu mber/volume)Ordered By: Cristi Godinez on 11-24-2022 RBC (Bld) [#/Vol] 4.48 10*6/uL 4.6-6.2 [facility] Blood hemoglobin measurement (mass/volume)Ordered By: Cristi Godinez on 11-24-2022 Hemoglobin (Bld) [Mass/Vol] 13.1 g/dL 13.0-16.5 [facility] Blood lymphocytes/100 leukoc ytesOrdered By: Cristi Godinez on 11-24-2022 Lymphocytes/100 WBC (Bld) 2.3 % 19-41 [facility] Blood manual differential co mment interpretation (narrative result)Ordered By: Cristi Godinez on 11-24-2022 Manual differential comment Max (Bld) [Interp] SEE COMMENT [facility] Comment on above: LYMPHOPENIA NOTED Blood monocytes/100 leukocyt esOrdered By: Cristi Godinez on 11-24-2022 Monocytes/100 WBC (Bld) 3.8 % 0-10 [facility] Blood platelet adequacy dete ction by light microscopyOrdered By: Cristi Godinez on 11-24-2022 Platelets LM Ql (Bld) ADEQUATE ADEQ [facility] Blood platelet mean volumeOr dered By: Cristi Godinez on 11-24-2022 Platelet mean volume (Bld) [Entitic vol] 9.3 fL 6.2-12.0 [facility] Determination of erythrocyte mean corpuscular volume (MCV)Ordered By: Cristi Godinez on 11-24-2022 MCV (RBC) [Entitic vol] 94.4 fL 80-94 [facility] Hematocrit Auto (Bld) [Volum e fraction]Ordered By: Cristi Godinez on 11-24-2022 Hematocrit (Bld) [Volume fraction] 42.3 % 40-54 [facility] Laboratory - Chemistry and C hemistry - challengeOrdered By: Cristi Godinez on 11-24-2022 CO2 [Moles/Vol] 32.0 mmol/L 21.0-32.0 [facility] Urea nitrogen/Creatinine [Mass ratio] 14.3 mg/mg 10-20 [facility] Laboratory - Hematology and Cell countsOrdered By: Cristi Godinez on 11-24-2022 Anisocytosis Ql (Bld) RARE [facility] Erythrocyte distribution width (RBC) [Entitic vol] 50.4 fL 35.1-43.9 [facility] Erythrocyte distribution width (RBC) [Ratio] 14.6 % 11.6-14.6 [facility] Immature granulocytes/100 WBC (Bld) 0.600 % 0.0-0.9 [facility] Comment on above: IG% - Immature Granu locytes (promyelocytes, myelocytes and metamyelocytes) > 1% indicates that a LEFT SHIFT is Present. MCH (RBC) [Entitic mass] 29.2 pg 27.0-32.0 [facility] Nucleated RBC/100 WBC (Bld) [Ratio] 0 % 0-5 [facility] MCHC Auto (RBC) [Mass/Vol]Or dered By: Cristi Godinez on 11-24-2022 MCHC (RBC) [Mass/Vol] 31.0 g/dL 32-36 [facility] Macrocytes detectionOrdered By: Cristi Godinez on 11-24-2022 Macrocytes Ql (Bld) RARE [facility] No Panel InformationOrdered By: Cristi Godinez on 11-24-2022 Estimated Creatinine Clearance Calc 52.73 ml/min [facility] Estimated GFR (MDRD) Amer 76 mL/min >60 [facility] Comment on above: GFR Calc Estimated GFR (MDRD) Non-Af Amer 63 mL/min >60 [facility] Comment on above: Non- GFR Calc Platelets bldOrdered By: Pet nannette Godinez on 11-24-2022 Platelets (Bld) [#/Vol] 184 10*3/uL 150-450 [facility] Review by pathologistOrdered By: Cristi Godinez on 11-24-2022 Pathologist review Max (Unsp spec) [Interp] May foll [facility] Serum or plasma calcium ry urement (mass/volume)Ordered By: Cristi Godinez on 11-24-2022 Calcium [Mass/Vol] 8.5 mg/dL 8.5-10.1 [facility] Serum or plasma creatinine m easurement (mass/volume)Ordered By: Cristi Godinez on 11-24-2022 Creatinine [Mass/Vol] 1.19 mg/dL 0.70-1.30 [facility] Comment on above: The validity of the calculated GFR & GFRAA in patients over 70 years has not been determined. Clinical correlation is essential. Serum or plasma urea nitroge n measurement (mass/volume)Ordered By: Cristi Godinez on 11-24-2022 Urea nitrogen [Mass/Vol] 17 mg/dL 09-16 [facility] Thin prep Papanicolaou smear with manual screeningOrdered By: Cristi Godinez on 11-24-2022 Thin prep Papanicolaou smear with manual screening 3 07-14 [facility] No Panel Informationon 11-18 [facility] OXIMETRY WITH AMBULATIONon 0 11-07-2022 [facility] No Panel Informationon 10-13 DLCO (ml/min/mmHg) 9.53 ml/min/mmHg [facility] DLCO/VA (ml/min/mmHg/L) 2.03 ml/min/mmHg/L [facility] UEA67-40% POST (L/S) 0.41 L/S [facility] FTV96-18% PRE (L/S) 0.45 L/S [facility] FEV1 PRE (L) 1.23 L [facility] FEV1/FVC POST (%) 37 % [facility] FEV1/FVC PRE (%) 37 % [facility] FEV1_POST (L) 1.23 L [facility] FVC POST (L) 3.34 L [facility] FVC PRE (L) 3.28 L [facility] PEF POST (L/S) 3.28 L/S [facility] PEF PRE (L/S) 3.03 L/S [facility] VA (L) 4.68 L [facility] XR FOOT GENERAL 3V AP/LAT/OB L RIGHTon 08-26-2022 [facility] PVR ANK PRESS MARTITA VAS LABon 06-18-2022 [facility] US LEG ARTERIAL PERIPH UNL V LABon 06-18-2022 [facility] XR FOOT GENERAL 3V AP/LAT/OB L RIGHTon 05-27-2022 [facility] Basic metabolic 2000 panelon 05-16-2022 Anion gap [Moles/Vol] 7 mmol/L Low 11-17 [facility] Comment on above: Order Comment: Speci men Type: BLOOD SPECIMEN Ordering Facility: [facility] Address: [address] [address] Performed By: #### 2 4321-2, 2776-03, #### [facility] CLIA [id number] [address] [place] [address] [place] Calcium [Mass/Vol] 8.6 mg/dL Normal 8.5-10.2 [facility] Comment on above: Order Comment: Speci men Type: BLOOD SPECIMEN Ordering Facility: [facility] Address: [address] [address] Performed By: #### 2 4321-2, 2776-03, #### [facility] CLIA [id number] [address] [place] [address] [place] Chloride [Moles/Vol] 105 mmol/L Normal 97-105 [facility] Comment on above: Order Comment: Speci men Type: BLOOD SPECIMEN Ordering Facility: [facility] Address: [address] [address] Performed By: #### 2 4321-2, 2776-03, #### [facility] CLIA [id number] [address] [place] [address] [place] CO2 [Moles/Vol] 28 mmol/L Normal 22-30 [facility] Comment on above: Order Comment: Speci men Type: BLOOD SPECIMEN Ordering Facility: [facility] Address: [address] [address] Performed By: #### 2 4321-2, 2776-03, #### [facility] CLIA [id number] [address] [place] [address] [place] Creatinine [Mass/Vol] 0.73 mg/dL Normal 0.73-1.22 [facility] Comment on above: Order Comment: Speci men Type: BLOOD SPECIMEN Ordering Facility: [facility] Address: [address] [address] Performed By: #### 2 4321-2, 27708-30, #### [facility] CLIA [id number] [address] [place] [address] [place] ESTIMATED GLOMERULAR FILTRATION RATE 93 mL/min/1.73m??? Normal >=60 [facility] Comment on above: Order Comment: Fab doran Type: BLOOD SPECIMEN Ordering Facility: [facility] Address: [address] [place], [place] [address] Result Comment: Karey mated Glomerular Filtration Rate (eGFR) is calculated using the 2020 CKD-EPI creatinine equation. This equation utilizes serum creatinine, sex, and age as parameters. The creatinine assay has traceable calibration to isotope dilution-mass spectrometry. Refer to KDIGO guidelines for clinical interpretation. In patients with unstable renal function, e.g. those with acute kidney injury, the eGFR may not accurately reflect actual GFR. Performed By: #### 2 4321-2, 2777-, #### [facility] CLIA [id number] [address] [place] [address] [place] Glucose [Mass/Vol] 102 mg/dL High 74-99 [facility] Comment on above: Order Comment: Fab doran Type: BLOOD SPECIMEN Ordering Facility: [facility] Address: [address] [place] [address] Result Comment: The [place] Diabetes Association (ADA) provides guidance for cutoff values for fasting glucose and random glucose. The ADA defines fasting as no caloric intake for at least 8 hours. Fasting plasma glucose results between 100 to 125 [...] Standards of Medical Care in Diabetes 2016, [place] [employer]. Diabetes Care. 2016.39(Suppl 1). Performed By: #### 2 4321-2, 2777, #### [facility] CLIA [id number] [place] [address] [place] Potassium [Moles/Vol] 3.7 mmol/L Normal 3.7-5.1 [facility] Comment on above: Order Comment: Speci men Type: BLOOD SPECIMEN Ordering Facility: [facility] Address: [address] [address] Performed By: #### 2 4321-2, 2776-03, #### [facility] CLIA [id number] [address] [place] [address] [place] Sodium [Moles/Vol] 140 mmol/L Normal 136-144 [facility] Comment on above: Order Comment: Speci men Type: BLOOD SPECIMEN Ordering Facility: [facility] Address: [address] [address] Performed By: #### 2 4321-2, 2776-03, #### [facility] CLIA [id number] [address] [place] [address] [place] Urea nitrogen [Mass/Vol] 15 mg/dL Normal 9-24 [facility] Comment on above: Order Comment: Speci men Type: BLOOD SPECIMEN Ordering Facility: [facility] Address: [address] [address] Performed By: #### 2 4321-2, 2776-03, #### [facility] CLIA [id number] [address] [place] [address] [place] CBC panel Auto (Bld)on 05-16 Erythrocyte distribution width (RBC) [Ratio] 13.3 % Normal 11.5-15.0 [facility] Comment on above: Order Comment: Speci men Type: BLOOD SPECIMEN Ordering Facility: [facility] Address: [address] [address] Performed By: #### 5 8410-2 #### [facility] CLIA [id number] [address] [place] [address] [place] Hematocrit (Bld) [Volume fraction] 32.7 % Low 39.0-51.0 [facility] Comment on above: Order Comment: Speci men Type: BLOOD SPECIMEN Ordering Facility: [facility] Address: [address] [address] Performed By: #### 5 8410-2 #### [facility] CLIA [id number] [address] [place] [address] [place] Hemoglobin (Bld) [Mass/Vol] 10.8 g/dL Low 13.0-17.0 [facility] Comment on above: Order Comment: Speci men Type: BLOOD SPECIMEN Ordering Facility: [facility] Address: [address] [place] [address] Performed By: #### 5 8410-2 #### [facility] CLIA [id number] [address] [place] [address] [place] MCH (RBC) [Entitic mass] 31.1 pg Normal 26.0-34.0 [facility] Comment on above: Order Comment: Speci men Type: BLOOD SPECIMEN Ordering Facility: [facility] Address: [address] [place] [address] Performed By: #### 5 8410-2 #### [facility] CLIA [id number] [address] [place] [address] [place] MCHC (RBC) [Mass/Vol] 33.0 g/dL Normal 30.5-36.0 [facility] Comment on above: Order Comment: Speci men Type: BLOOD SPECIMEN Ordering Facility: [facility] Address: [address] [place] [address] Performed By: #### 5 8410-2 #### [facility] CLIA [id number] [address] [place] [address] [place] MCV (RBC) [Entitic vol] 94.2 fL Normal 80.0-100.0 [facility] Comment on above: Order Comment: Speci men Type: BLOOD SPECIMEN Ordering Facility: [facility] Address: [address] [place] [address] Performed By: #### 5 8410-2 #### [facility] CLIA [id number] [address] [place] [address] [place] Nucleated RBC (Bld) [#/Vol] 10*3/uL Normal <0.01 [facility] Comment on above: Order Comment: Speci men Type: BLOOD SPECIMEN Ordering Facility: [facility] Address: [facility] [address] [address] Performed By: #### 5 8410-2 #### [facility] CLIA [id number] [address] [place] [address] [place] Platelet mean volume (Bld) [Entitic vol] 8.9 fL Low 9.0-12.7 [facility] Comment on above: Order Comment: Speci men Type: BLOOD SPECIMEN Ordering Facility: [facility] Address: [address] [address] Performed By: #### 5 8410-2 #### [facility] CLIA [id number] [address] [place] [address] [place] Platelets (Bld) [#/Vol] 156 10*3/uL Normal 150-400 [facility] Comment on above: Order Comment: Speci men Type: BLOOD SPECIMEN Ordering Facility: [facility] Address: [address] [place] [address] Performed By: #### 5 8410-2 #### [facility] CLIA [id number] [address] [place] [address] [place] RBC (Bld) [#/Vol] 3.47 10*6/uL Low 4.20-6.00 [facility] Comment on above: Order Comment: Speci men Type: BLOOD SPECIMEN Ordering Facility: [facility] Address: [address] [place] [address] Performed By: #### 5 8410-2 #### [facility] CLIA [id number] [address] [place] [address] [place] WBC (Bld) [#/Vol] 6.59 10*3/uL Normal 3.70-11.00 [facility] Comment on above: Order Comment: Speci men Type: BLOOD SPECIMEN Ordering Facility: [facility] Address: [address] [place] [address] Performed By: #### 5 8410-2 #### [facility] CLIA [id number] [address] [place] [address] [place] Magnesium SerPl-mCncon 05-16 Magnesium [Mass/Vol] 2.1 mg/dL Normal 1.7-2.3 [facility] Comment on above: Order Comment: Spech[place] doran Type: BLOOD SPECIMEN Ordering Facility: [facility] Address: [address] [place] [address] Performed By: #### 2 4321-2, 2777-1, #### [facility] CLIA [id number] [place] [address] NURSING PROGon 05-16-2022 NURSING PROG HNO ID: [id number] Author: Estrella Mckeon RN Service: Nursing Author Type: Registered Nurse Type: Nursing Progress Note Filed: 05/16/2022 6:27 AM Note Text: IFC dc'd, catheter intact, no issues, pt tolerated well. Pt educated to notify RN if unable to void Normal [facility] Phosphate [facility] Phosphate [Mass/Vol] 3.0 mg/dL Normal 2.7-4.8 [facility] Comment on above: Order Comment: Speci men Type: BLOOD SPECIMEN Ordering Facility: [facility] Address: [address] [place] [address] Performed By: #### 2 4321-2, 27708-30, #### [facility] CLIA [id number] [address] [place] [address] THERAPY NTon 05-16-2022 THERAPY NT HNO ID: [id number] Author: Desiree Mosqueda, OTR/L Service: Occupational Therapy Author Type: Occupational Therapist Type: Therapy (PT/OT/Speech/Resp) Filed: 05/16/2022 11:53 AM Note Text: Occupational Therapy Evaluation SERVICE DATE: 05/16/2022 SERVICE TIME: 920 to 951 ROOM: [address] [place] [address] Recommended Discharge Disposition: Home OT Anticipated Discharge Needs: Physical Assist at Home Physical Assist at Home for: Cleaning, Laundry, Meals, Shopping, Transportation, Safety OT 6 Clicks Score: 21 Precautions/Activity Restrictions: Fall Risk, Bed/Chair Alarm, Lines/Tubes/Drains Precaution/Activity Restriction Comments: mobilize, WBAT Current Hospital Course: non-healing right heel ulcer, right femoral endarterectomy, right external iliac stent Reason for Hospital Admission: non-healing right heel ulcer who presents for elective right femoral endarterectomy, right external iliac stent 05/13. 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, prostate ca s/p XRT, PAD c/b non-healing right heel ulcer Occupational Therapy Problem List: Safety Deficits, Impaired Self Care, Decreased Activity Tolerance, Functional Mobility Impairment Treatment Interventions: Energy Conservation Training, Functional Mobility Training, Self Care / Home Management, Education Home Environment Patient Lives With: Spouse Assistance Available: PRN Entry To Home: Stairs Number Of Stairs Into Home: 1 Number Of Stairs To Bed/Bath: 0 Tub/Shower Type: Tub-shower Laundry: 1st floor, completes Equipment Owned: Wheelchair- Manual, Walker- Wheeled, Grab Bars- Shower, Shower Chair, Home Oxygen Prior Functional Level: Required Assistance Assistance Required With: Cleaning, Laundry, Meals, Shopping Prior Functional Level Comments: Pt. reports independence with ADL's. Pt. reports assist with IADL's including laundry, shopping, meal prep. Pt. reports that he drives and uses either a wheeled walker or cane to ambulate. Occupational Factors Life Roles: Spouse/Significant Other Identified Strengths: Effective Communication Skills, Motivation, Safety Awareness, Problem-Solving Skills, Access to Healthcare, Follows Multi-Step Commands Identified Barriers: Difficulty with ADLs/IADLs, Fatigue/Endurance, Medical Acuity/Chronic Condition CURRENT FUNCTIONAL STATUS: Most recent performance Current Activities of Daily Living Assist Level Additional Information Feeding Stand By Assistance Grooming Stand By Assistance Bathing Upper Body Stand By Assistance Bathing Lower Body Minimal Assistance Dressing Upper Body Stand By Assistance Dressing Lower Body Minimal Assistance Toileting Contact Guard Assistance Instrumental Activities of Daily Living Assist Level Additional Information Meal/Beverage Prep Cleaning Laundry Medication Management with Strategies Functional Mobility Assist Level Additional Information Rolling Modified Independent Supine to Sit Modified Independent Sit to Supine Scooting Modified Independent Sit to Stand Contact Guard Assistance Stand to Sit Contact Guard Assistance Bed to Chair Toilet/Commode Contact Guard Assistance Shower Functional Mobility Contact Guard Assistance, Additional Information Wheeled Walker Blank rebolledo indicate activity not attempted Balance: Static Sitting, Dynamic Sitting, Static Standing, Dynamic Standing Static Sitting Balance: Good Patient able to maintain balance without handhold support, limited postural sway Dynamic Sitting Balance: Good Patient accepts moderate challenge, able to maintain balance while picking up object off floor Static Standing Balance: Fair Patient able to maintain balance with handhold support, may require occasional minimal assistance Dynamic Standing Balance: Fair Patient accepts minimal challenge, able to maintain balance while turning head/trunk Learning/Educational Needs: Disease Process, Functional Activities/Mobility, Plan of Care, Precautions, Rehabilitation Techniques and Procedures, Safety, Self Care, Respiratory Function Goals for Plan of Care: Patient/Caregiver Goals: Reduce ADL/IADL barriers, Improve physical, mental and/or social well-being Goals: Patient will demonstrate progress with self-care, cognitive and/or coping needs identified to allow safe discharge to home with available support and/or physical assistance. Rehab Potential: Fair Patient will be discontinued from Occupational Therapy when no further skilled needs are identified in this setting. PLAN: OT Frequency: 3 times per week (2) Plan of Care developed with: Patient TREATMENT INTERVENTIONS: Therapy Diagnosis: Decreased activities of daily living (ADL), Muscle Weakness (generalized), General symptoms and signs-other, Reduced mobility-other Interventions Provided: Evaluation, Self Prison Management ( (more content not included)... Normal [facility] Basic metabolic 2000 panelon 05-15-2022 Anion gap [Moles/Vol] 6 mmol/L Low 9-18 [facility] Comment on above: Order Comment: Speci men Type: BLOOD SPECIMENOrdering Facility: [facility] Address: [address] [place] [address] Performed By: #### 1 9123-9, 2777-1, 85162-7 ####[facility] [id number] [place] [address] [place] Calcium [Mass/Vol] 8.5 mg/dL Normal 8.5-10.2 [facility] Comment on above: Order Comment: Speci men Type: BLOOD SPECIMENOrdering Facility: [facility] Address: [address] [place] [address] Performed By: #### 1 9123-9, 2777-, 30353-2 ####[facility] [id number] [address] [place] [id number] [place] Chloride [Moles/Vol] 105 mmol/L Normal 97-105 [facility] Comment on above: Order Comment: Speci men Type: BLOOD SPECIMENOrdering Facility: [facility] Address: [address] [place] [address] Performed By: #### 1 9123-9, 2777-, 63041-3 ####[facility] [id number] [place] [id number] [place] CO2 [Moles/Vol] 30 mmol/L Normal 22-30 [facility] Comment on above: Order Comment: Speci men Type: BLOOD SPECIMENOrdering Facility: [facility] Address: [address] [place] [address] Performed By: #### 1 9123-9, 2777, 43642-3 ####[facility] [id number] [place] [id number] [place] Creatinine [Mass/Vol] 0.73 mg/dL Normal 0.73-1.22 [facility] Comment on above: Order Comment: Speci men Type: BLOOD SPECIMENOrdering Facility: [facility] Address: [address] [place] [address] Performed By: #### 1 9123-9, 2777, 87636-2 ####[facility] [id number] [place] [id number] [place] ESTIMATED GLOMERULAR FILTRATION RATE 93 mL/min/1.73m??? Normal >=60 [facility] Comment on above: Order Comment: Speci men Type: BLOOD SPECIMENOrdering Facility: [facility] Address: [address] [place] [address] Result Comment: Karey mated Glomerular Filtration Rate (eGFR) is calculated using the 2020 CKD-EPI creatinine equation. This equation utilizes serum creatinine, sex, and age as parameters. The creatinine assay has traceable calibration to isotope dilution-mass spectrometry. Refer to KDIGO guidelines for clinical interpretation. In patients with unstable renal function, e.g. those with acute kidney injury, the eGFR may not accurately reflect actual GFR. Performed By: #### 1 9123-9, 2777-1, 40434-9 ####[facility] [id number] [place] [id number] [place] Glucose [Mass/Vol] 111 mg/dL High 74-99 [facility] Comment on above: Order Comment: Fab doran Type: BLOOD SPECIMENOrdering Facility: [facility] Address: [address] [id number] Result Comment: The [place] Diabetes Association (ADA) provides guidance for cutoff values for fasting glucose and random glucose. The ADA defines fasting as no caloric intake for at least 8 hours. Fasting plasma glucose results between 100 to 125 [...] Standards of Medical Care in Diabetes 2016, [place] [employer]. Diabetes Care. 2016.39(Suppl 1). Performed By: #### 1 9123-9, 2777-, 20368-8 ####[facility] [id number] [place] [id number] [place] Potassium [Moles/Vol] 3.9 mmol/L Normal 3.7-5.1 [facility] Comment on above: Order Comment: Fab doran Type: BLOOD SPECIMENOrdering Facility: [facility] Address: [address] [place] [address] Performed By: #### 1 9123-9, 2777-1, 91978-4 ####[facility] [id number] [place] [id number] [place] Sodium [Moles/Vol] 141 mmol/L Normal 136-144 [facility] Comment on above: Order Comment: Fab doran Type: BLOOD SPECIMENOrdering Facility: [facility] Address: [address] [phone] Performed By: #### 1 9123-9, 2777-1, 32471-7 ####[facility] [id number] [address] STATES OF [facility] Urea nitrogen [Mass/Vol] 13 mg/dL Normal 9-24 [facility] Comment on above: Order Comment: Speci men Type: BLOOD SPECIMENOrdering Facility: [facility] Address: [address] [address] Performed By: #### 1 9123-9, 2777-, 78259-7 ####[facility] [id number] [address] CBC panel Auto (Bld)on 05-15 Erythrocyte distribution width (RBC) [Ratio] 13.3 % Normal 11.5-15.0 [facility] Comment on above: Order Comment: Speci men Type: BLOOD SPECIMEN Ordering Facility: [facility] Address: [address] [place] [address] Performed By: #### 5 8410-2 #### [facility] CLIA [id number] [address] [place] [address] Hematocrit (Bld) [Volume fraction] 34.2 % Low 39.0-51.0 [facility] Comment on above: Order Comment: Speci men Type: BLOOD SPECIMEN Ordering Facility: [facility] Address: [address] [place] [address] Performed By: #### 5 8410-2 #### [facility] CLIA [id number] [place] [address] [place] Hemoglobin (Bld) [Mass/Vol] 11.0 g/dL Low 13.0-17.0 [facility] Comment on above: Order Comment: Speci men Type: BLOOD SPECIMEN Ordering Facility: [facility] Address: [address] [address] Performed By: #### 5 8410-2 #### [facility] CLIA [id number] [place] [address] [place] MCH (RBC) [Entitic mass] 30.6 pg Normal 26.0-34.0 [facility] Comment on above: Order Comment: Speci men Type: BLOOD SPECIMEN Ordering Facility: [facility] Address: [address] [place] [address] Performed By: #### 5 8410-2 #### [facility] CLIA [id number] [address] [place] [address] [place] MCHC (RBC) [Mass/Vol] 32.2 g/dL Normal 30.5-36.0 [facility] Comment on above: Order Comment: Speci men Type: BLOOD SPECIMEN Ordering Facility: [facility] Address: [address] [place] [address] Performed By: #### 5 8410-2 #### [facility] CLIA [id number] [address] [place] [address] [place] MCV (RBC) [Entitic vol] 95.3 fL Normal 80.0-100.0 [facility] Comment on above: Order Comment: Speci men Type: BLOOD SPECIMEN Ordering Facility: [facility] Address: [address] [place] [address] Performed By: #### 5 8410-2 #### [facility] CLIA [id number] [address] [place] [address] [place] Nucleated RBC (Bld) [#/Vol] 10*3/uL Normal <0.01 [facility] Comment on above: Order Comment: Speci men Type: BLOOD SPECIMEN Ordering Facility: [facility] Address: [address] [place] [address] Performed By: #### 5 8410-2 #### [facility] CLIA [id number] [address] [place] [address] [place] Platelet mean volume (Bld) [Entitic vol] 8.9 fL Low 9.0-12.7 [facility] Comment on above: Order Comment: Speci men Type: BLOOD SPECIMEN Ordering Facility: [facility] Address: [address] [place] [address] Performed By: #### 5 8410-2 #### [facility] CLIA [id number] [place] [address] [place] Platelets (Bld) [#/Vol] 144 10*3/uL Low 150-400 [facility] Comment on above: Order Comment: Speci men Type: BLOOD SPECIMEN Ordering Facility: [facility] Address: [address] [place] [address] Performed By: #### 5 8410-2 #### [facility] CLIA [id number] [place] [address] [place] RBC (Bld) [#/Vol] 3.59 10*6/uL Low 4.20-6.00 [facility] Comment on above: Order Comment: Speci men Type: BLOOD SPECIMEN Ordering Facility: [facility] Address: [address] [place] [address] Performed By: #### 5 8410-2 #### [facility] [facility] CLIA [id number] [place] [address] [place] WBC (Bld) [#/Vol] 6.71 10*3/uL Normal 3.70-11.00 [facility] Comment on above: Order Comment: Speci men Type: BLOOD SPECIMEN Ordering Facility: [facility] Address: [address] [place] [address] Performed By: #### 5 8410-2 #### [facility] CLIA [id number] [place] [address] [place] Magnesium SerPl-mCncon 05-15 Magnesium [Mass/Vol] 2.0 mg/dL Normal 1.7-2.3 [facility] Comment on above: Order Comment: Speci men Type: BLOOD SPECIMENOrdering Facility: [facility] Address: [address] [place] [address] Performed By: #### 1 9123-9, 2777-1, 15013-7 ####[facility]ORYCLIA [id number] [place] [address] [place] Phosphate SerPl-mCncon 05-15 Phosphate [Mass/Vol] 3.1 mg/dL Normal 2.7-4.8 [facility] Comment on above: Order Comment: Speci men Type: BLOOD SPECIMENOrdering Facility: [facility] Address: [place] [id number] Performed By: #### 1 9123-9, 2777-1, 44679-5 ####[facility] [id number] [place] [id number] [facility] NTon 05-15-2022 THERAPY NT HNO ID: [id number] Author: Keily Ramsey OT/L Service: Occupational Therapy Author Type: Occupational Therapist Type: Therapy (PT/OT/Speech/Resp) Filed: 05/15/2022 2:24 PM Note Text: OCCUPATIONAL THERAPY MISSED VISIT SERVICE DATE: 05/15/2022 SERVICE TIME: 1420 to 1420 ROOM: [place] [address] Patient not seen due to Declined. SIGNATURE: Keily Ramsey OT/Justin PATIENT NAME: Oswaldo Corley DATE: May 15, 2022 TIME: 2:24 PM [facility] THERAPY NT HNO ID: [id number] Author: Madhu Smith, PT Service: Physical Therapy Author Type: Physical Therapist Type: Therapy (PT/OT/Speech/Resp) Filed: 05/15/2022 10:51 AM Note Text: Physical Therapy Treatment SERVICE DATE: 05/15/2022 SERVICE TIME: 0830 to 0858 ROOM: [place] [address] Recommended Discharge Disposition: Home PT Anticipated Discharge Needs: Physical Assist at Home Physical Assist at Home for: Cleaning, Laundry, Meals, Shopping, Transportation Recommended Discharge Equipment: To Be Determined PT 6 Clicks Score: 20 Precautions/Activity Restrictions: Fall Risk, Lines/Tubes/Drains, Bed/Chair Alarm Precaution/Activity Restriction Comments: mobilize, WBAT Reason for Hospital Admission: non-healing right heel ulcer who presents for elective right femoral endarterectomy, right external iliac stent 05/13. 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, prostate ca s/p XRT, PAD c/b non-healing right heel ulcer Response to Therapy Interventions: Good participation in activities, Improved tolerance for activity, Low activity tolerance Continue skilled needs due to: Functional mobility/skill impairments Physical Therapy Problem List: Decreased Activity Tolerance, Decreased Strength, Functional Mobility Impairment, Balance Impaired Treatment Interventions: Education, Strengthening, Functional Mobility Training, Balance Training, Energy Conservation Training, Joint Mobility Plan for next visit: Bed mobility, Gait training, Sit to Stand Transfers, Standing Balance, Standing Tolerance, Walker Training Home Environment Patient Lives With: Spouse Assistance Available: PRN Entry To Home: Stairs Number Of Stairs Into Home: 1 Number Of Stairs To Bed/Bath: 0 Laundry: completes Equipment Owned: Wheelchair- Manual, Walker- Wheeled, Grab Bars- Shower, Shower Chair, Home Oxygen Prior Functional Level: Required Assistance Assistance Required With: Cleaning, Laundry, Meals, Shopping Prior Functional Level Comments: Per pt, ambulates using a cane. Ind with ADL's and has assistance with IADL's. Pt's mobility is limited due to SOB at baseline Patient Report: Pt agreeable to participate in therapy session CURRENT FUNCTIONAL STATUS: Most recent performance Current Functional Mobility Assist Level Additional Information Rolling Stand By Assistance Supine to Sit Stand By Assistance Sit to Supine Scooting Stand By Assistance Sit to Stand Contact Guard Assistance, Additional Information VC given for positioning and hand placement prior to transfer Stand to Sit Contact Guard Assistance, Additional Information Cues given for hand placement and eccentric control Bed to Chair Toilet/Commode Stand By Assistance Gait Contact Guard Assistance Gait Device: Wheeled Walker (R sx shoe) Gait Distance (feet): 10' and 50' with a seated rest break between bouts (Limited distance walked due SOB) Stairs Curb Step Car Transfer Blank rebolledo indicate activity not attempted Gait Deviations Right Lower Extremity: Weight bearing decreased General Deviations/Observations: Jane decreased, Flexed trunk posture, Step length decreased, Improper distancing from assistive device, Antalgic gait (no LOB, cues for pace and postioning inside ww) Balance: Static Sitting, Static Standing, Dynamic Standing Static Sitting Balance: Good Patient able to maintain balance without handhold support, limited postural sway Static Standing Balance: Fair Patient able to maintain balance with handhold support, may require occasional minimal assistance Dynamic Standing Balance: Fair Patient accepts minimal challenge, able to maintain balance while turning head/trunk JH-HLM: 6: Walk 10 steps or more Learning/Educational Needs: Functional Activities/Mobility Goals for Plan of Care: Patient/Caregiver Goals: Go Home Goals: Patient will demonstrate progress with functional mobility to allow safe discharge to home with available support and/or physical assistance. Progress Toward Goals: Progressing as expected Rehab Potential: Good Patient will be discontinued from Physical Therapy when no further skilled needs are identified in this setting. PLAN: PT Frequency: 3 times per week Plan of Care developed with: Patient, Family TREATMENT INTERVENTIONS: Therapy Diagnosis: Reduced mobility-other, Muscle Weakness (generalized), Unsteadiness on feet, Abnormalities of gait and mobility-other Interventions Provided: Gait Training (52554), Therapeutic Activity (46970) Therapeutic Activity (25288) Treatment Minutes: 10 $ Therapeutic Activity (04280) Billed Units: 1 unit Gait Training (95746) Treatment Minutes: 13 $ Gait Training (94213) Billed Units: 1 unit Training AND education provided in: Assistive device use, Benefits of in-hospital mobility, Disease specific education, Equipment, Gait patter (more content not included)... [facility] ALLIED [facility] 05-14-2022 ALLIED HEALTH HNO ID: [id number] Author: Chaplain Jennifer Service: Spiritual Care Author Type: Pecan Grower Type: Allied Health Filed: 05/14/2022 2:36 PM Note Text: SPIRITUALCARE Spiritual Care Visit- Brief Note Name: Oswaldo Corley Date: May 14, 2022 Notes: While engaging in spiritual care rounds on the SICU unit, I made a visit with the patient and I provided spiritual presence and bucolic support through empathetic care and through prayers at the bedside. [facility]ec[facility] [employer] Signature: Chaplain Jennifer To contact the Spiritual Care Department: Please call [phone] or Page the On-Call Pecan Grower at pager [phone]. Thank you for the opportunity to be of service This is an electronically created document. IF PRINTED, PLEASE DO NOT REMOVE FROM THE CHART OR MODIFY PRINTED COPY. [facility] Basic metabolic 2000 panelon 05-14-2022 Anion gap [Moles/Vol] 8 mmol/L Low 9-18 [facility] Comment on above: Order Comment: Speci men Type: BLOOD SPECIMENOrdering Facility: [facility] Address: [address] Performed By: #### 2 4321-2, , 2776-03 ####[facility] [id number] [place] [id number] [place] Calcium [Mass/Vol] 8.7 mg/dL Normal 8.5-10.2 [facility] Comment on above: Order Comment: Speci men Type: BLOOD SPECIMENOrdering Facility: [facility] Address: [address] Performed By: #### 2 4321-2, , 2776-03 ####[facility] [id number] [place] [address] [place] Chloride [Moles/Vol] 105 mmol/L Normal 97-105 [facility] Comment on above: Order Comment: Speci men Type: BLOOD SPECIMENOrdering Facility: [facility] Address: [address] [place] [address] Performed By: #### 2 4321-2, , 2776-03 ####[facility] [id number] [place] [id number] [place] CO2 [Moles/Vol] 28 mmol/L Normal 22-30 [facility] Comment on above: Order Comment: Speci men Type: BLOOD SPECIMENOrdering Facility: [facility] Address: [address] Performed By: #### 2 4321-2, , 2776-03 ####[facility] [id number] [place] [id number] [place] Creatinine [Mass/Vol] 0.82 mg/dL Normal 0.73-1.22 [facility] Comment on above: Order Comment: Speci men Type: BLOOD SPECIMENOrdering Facility: [facility] Address: [address] Performed By: #### 2 4321-2, , 2776-03 ####[facility] [id number] [place] [id number] [place] ESTIMATED GLOMERULAR FILTRATION RATE 89 mL/min/1.73m??? Normal >=60 [facility] Comment on above: Order Comment: Fab doran Type: BLOOD SPECIMENOrdering Facility: [facility] Address: [address] [place] [address] Result Comment: Karey mated Glomerular Filtration Rate (eGFR) is calculated using the 2020 CKD-EPI creatinine equation. This equation utilizes serum creatinine, sex, and age as parameters. The creatinine assay has traceable calibration to isotope dilution-mass spectrometry. Refer to KDIGO guidelines for clinical interpretation. In patients with unstable renal function, e.g. those with acute kidney injury, the eGFR may not accurately reflect actual GFR. Performed By: #### 2 4321-2, , 2776-03 ####[facility] [id number] [place] [id number] [place] Glucose [Mass/Vol] 112 mg/dL High 74-99 [facility] Comment on above: Order Comment: Fab doran Type: BLOOD SPECIMENOrdering Facility: [facility] Address: [address] [place] [address] Result Comment: The [place] Diabetes Association (ADA) provides guidance for cutoff values for fasting glucose and random glucose. The ADA defines fasting as no caloric intake for at least 8 hours. Fasting plasma glucose results between 100 to 125 [...] Standards of Medical Care in Diabetes 2016, [place] [employer]. Diabetes Care. 2016.39(Suppl 1). Performed By: #### 2 4321-2, , 2776-03 ####[facility] [id number] [place] [id number] [place] Potassium [Moles/Vol] 4.1 mmol/L Normal 3.7-5.1 [facility] Comment on above: Order Comment: Speci men Type: BLOOD SPECIMENOrdering Facility: [facility] Address: [address] [place] [address] Performed By: #### 2 4321-2, , 2776-03 ####[facility]ORYCLIA [id number] [place] [id number] [place] Sodium [Moles/Vol] 141 mmol/L Normal 136-144 [facility] Comment on above: Order Comment: Speci men Type: BLOOD SPECIMENOrdering Facility: [facility] Address: [address] [place] [address] Performed By: #### 2 4321-2, , 2776-03 ####[facility]ATORYCLIA [id number] [place] [address] [place] Urea nitrogen [Mass/Vol] 14 mg/dL Normal 9-24 [facility] Comment on above: Order Comment: Speci men Type: BLOOD SPECIMENOrdering Facility: [facility] Address: [address] [place] [address] Performed By: #### 2 4321-2, , 2776-03 ####[facility]ATORYCLIA [id number] [address] [place] CBC panel Auto (Bld)on 05-14 Erythrocyte distribution width (RBC) [Ratio] 13.8 % Normal 11.5-15.0 [facility] Comment on above: Order Comment: Speci men Type: BLOOD SPECIMENOrdering Facility: [facility] Address: [address] [place] [address] Performed By: #### 5 8410-2 ####[facility] [id number] [address] STATES OF [facility] Hematocrit (Bld) [Volume fraction] 35.8 % Low 39.0-51.0 [facility] Comment on above: Order Comment: Speci men Type: BLOOD SPECIMENOrdering Facility: [facility] Address: [address] [place] [address] Performed By: #### 5 8410-2 ####[facility]ORYCLIA [id number] [address] [place] Hemoglobin (Bld) [Mass/Vol] 11.5 g/dL Low 13.0-17.0 [facility] Comment on above: Order Comment: Speci men Type: BLOOD SPECIMENOrdering Facility: [facility] Address: [address] [place] [address] Performed By: #### 5 8410-2 ####[facility]ORYCLIA [id number] [address] [place] MCH (RBC) [Entitic mass] 30.7 pg Normal 26.0-34.0 [facility] Comment on above: Order Comment: Speci men Type: BLOOD SPECIMENOrdering Facility: [facility] Address: [address] [place] [address] Performed By: #### 5 8410-2 ####[facility]ORYCLIA [id number] [address] [facility] MCHC (RBC) [Mass/Vol] 32.1 g/dL Normal 30.5-36.0 [facility] Comment on above: Order Comment: Speci men Type: BLOOD SPECIMENOrdering Facility: [facility] Address: [address] [place] [address] Performed By: #### 5 8410-2 ####[facility]ORYCLIA [id number] [address] [place] [facility] MCV (RBC) [Entitic vol] 95.5 fL Normal 80.0-100.0 [facility] Comment on above: Order Comment: Speci men Type: BLOOD SPECIMENOrdering Facility: [facility] Address: [address] [place] [address] Performed By: #### 5 8410-2 ####[facility]ORYCLIA [id number] [address] [place] Nucleated RBC (Bld) [#/Vol] 10*3/uL Normal <0.01 [facility] Comment on above: Order Comment: Speci men Type: BLOOD SPECIMENOrdering Facility: [facility] Address: [address] [place] [address] Performed By: #### 5 8410-2 ####[facility]ORYCLIA [id number] [place] [address] [place] Platelet mean volume (Bld) [Entitic vol] 8.5 fL Low 9.0-12.7 [facility] Comment on above: Order Comment: Speci men Type: BLOOD SPECIMENOrdering Facility: [facility] Address: [address] [place] [address] Performed By: #### 5 8410-2 ####[facility]ORYCLIA [id number] [place] [address] [place] Platelets (Bld) [#/Vol] 153 10*3/uL Normal 150-400 [facility] Comment on above: Order Comment: Speci men Type: BLOOD SPECIMENOrdering Facility: [facility] Address: [address] [place] [address] Performed By: #### 5 8410-2 ####[facility]ATORYCLIA [id number] [place] [address] [place] RBC (Bld) [#/Vol] 3.75 10*6/uL Low 4.20-6.00 [facility] Comment on above: Order Comment: Speci men Type: BLOOD SPECIMENOrdering Facility: [facility] Address: [address] [place] [address] Performed By: #### 5 8410-2 ####[facility]ATORYCLIA [id number] [place] [address] [place] WBC (Bld) [#/Vol] 7.55 10*3/uL Normal 3.70-11.00 [facility] Comment on above: Order Comment: Speci men Type: BLOOD SPECIMENOrdering Facility: [facility] Address: [address] [place] [address] Performed By: #### 5 8410-2 ####[facility] [id number] [address] [place] CONSULTon 05-14-2022 CONSULT HNO ID: [id number] Author: Manju Mendoza RN Service: Wound/Ostomy Author Type: Registered Nurse Type: Consults Filed: 05/14/2022 3:21 PM Note Text: WOUND CARE SERVICE CONSULT NOTE SERVICE DATE: 05/14/2022 SERVICE TIME: 3:08 PM CHIEF COMPLAINT: Presented to [facility] for elective vascular procedure. Subjective Patient is seen at the request of Vascular Surgery for my opinion regarding chronic right heel wound, poa. My final recommendations will be communicated back to the requesting physician by way of copy of this note or shared electronic medical record. 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 The patient states the wound wound has been present for a long time. He currently follows with Podiatry outpatient. PAST MEDICAL HISTORY Diagnosis Date Abdominal aortic aneurysm (AAA) without rupture (HCC) 11/19/2018 Atypical chest pain CAD (coronary artery disease) s/p CABG 1999, PCI w/ stents COPD (chronic obstructive pulmonary disease) (HCC) Diabetic ulcer of right foot (HCC) 04/30/2022 Hyperlipidemia Hyperlipidemia Hypertension Prostate cancer (HCC) Dx Dec 2014, s/p radiation, on hormonal therapy PAST SURGICAL HISTORY Procedure Laterality Date ANGIOGRAM EXTREMITY LUNG BIOPSY Left needle biopsy LUNG SURGERY HX 02/20/20 lt lung nodule removed PAST SURGICAL HISTORY OF TURP PAST SURGICAL HISTORY OF 03/02/1999 triple bypass Social History Tobacco Use Smoking status: Former Packs/day: 2.00 Years: 40.00 Pack years: 80.00 Types: Cigarettes Start date: 11/08/1962 Quit date: 05/13/2002 Years since quittin.0 Smokeless tobacco: Never Vaping Use Vaping Use: Never used Substance Use Topics Alcohol use: Not Currently Alcohol/week: 3.0 standard drinks Types: 3 Cans of beer per week Comment: light beer Drug use: No FAMILY HISTORY Problem Relation Age of Onset Cancer Mother breast, bone Cancer Sister breast Emphysema Sister Smoker Diabetes Father Heart Father Diabetes Brother Heart Brother other (Other) Brother Parkinsons Diabetes Paternal Grandmother Heart Paternal Grandmother MEDICATIONS: Current Facility-Administered Medications Medication Dose Route Frequency heparin 5,000 Units injection 5,000 Units SUBCUTANEOUS q 12 H heparin 100 unit/mL 500 Units injection 5 mL INTRAVENOUS DIRECTED PRN NaCl 0.9% iv flush bag 20 mL INTRAVENOUS PRN ondansetron 4 mg tab(s) (ZOFRAN) 4 mg ORAL q 6 H PRN Or ondansetron (PF) 4 mg injection (ZOFRAN) 4 mg INTRAVENOUS q 6 H PRN senna-docusate 8.6-50 mg 1 tablet (SENNA-S) 1 tablet ORAL BID tiotropium bromide 2.5 mcg/actuation 1 Puff (SPIRIVA RESPIMAT) 1 Puff INHALATION DAILY atorvastatin 20 mg tab(s) (LIPITOR) 20 mg ORAL DAILY tamsulosin 0.4 mg cap(s) (FLOMAX) 0.4 mg ORAL AT BEDTIME albuterol HFA 90 mcg/actuation 2 Puff (PROVENTIL HFA, VENTOLIN HFA) 2 Puff INHALATION q 4 H PRN fluticasone-vilanterol 100-25 mcg/dose 1 Inhalation (BREO ELLIPTA) 1 Inhalation INHALATION DAILY DULoxetine 30 mg cap(s) (CYMBALTA) 30 mg ORAL DAILY predniSONE 10 mg tab(s) (DELTASONE) 10 mg ORAL DAILY acetaminophen 650 mg tab(s) (TYLENOL) 650 mg ORAL q 6 H labetalol 5 mg injection syringe (NORMODYNE) 5 mg INTRAVENOUS q 2 H PRN hydrALAZINE 10 mg injection (APRESOLINE) 10 mg INTRAVENOUS q 6 H PRN oxyCODONE IR 5 mg tab(s) (ROXICODONE) 5 mg ORAL q 6 H PRN aspirin 81 mg chewable tab(s) 81 mg ORAL DAILY clopidogrel 75 mg tab(s) (PLAVIX) 75 mg ORAL DAILY polyethylene glycol 3350 17 g packet 17 g ORAL DAILY PRN ALLERGIES Allergen Reactions Imdur [Isosorbide M* Hives Black out and dizziness Objective PHYSICAL EXAM: BP 124/82 Pulse 85 Temp (Src) 97.9 (Oral) Resp 21 Ht 5' 10.984 (1.80m) Wt 175 lb 0.7 oz (79.4kg) SpO2 97% BMI 24.42 kg/(m2). O2 Therapy: Nasal Cannula, Liters: 2 General: Alert, no distress, cooperative Musculoskeletal: Normal exam Skin: Skin color, texture, turgor normal. No rashes or lesions. Extremeties: Right heel ulceration as described below. Presenting wound information: Wound 05/13/22 Heel Right (Active) Assessments 05/14/2022 1:08 PM Wound Image Site Assessment Red;Yellow Bell-Wound Assessment Intact Shape oval Wound Length (cm) 1.2 cm Wound Width (cm) 1.8 cm Wound Surface Area (cm2) 2.16 cm2 Wound Depth (cm) 0.2 cm Wound Volume (cm3) 0.432 cm3 Drainage Description Yellow;Serosanguineous Drainage Amount Small Odor None Treatments Cleansed Dressing Abdominal Dressing;Kerlix Roll Dressing Changed Changed Dres (more content not included)... Normal [facility] Magnesium [facility] 05-14 Magnesium [Mass/Vol] 2.0 mg/dL Normal 1.7-2.3 [facility] Comment on above: Order Comment: Speci men Type: BLOOD SPECIMENOrdering Facility: [facility] Address: [address] [place] [address] Performed By: #### 2 4321-2, 56595-5, 2777-1 ####[facility]ORYCLIA [id number] [place] [address] [place] NURSING PROGon 05-14-2022 NURSING PROG HNO ID: [id number] Author: Ann Steven RN Service: ? Author Type: Registered Nurse Type: Nursing Progress Note Filed: 05/14/2022 7:38 PM Note Text: Transfer Note: Patient transferred into room/unit PKTC30 in stable condition. Actions taken: Patient belongings with patient. Vital signs taken. at bedside. Pt in 2L nasal canula. Suazo catheter in place draining yellow urine. Normal [facility] Phosphate [facility] 05-14 Phosphate [Mass/Vol] 3.7 mg/dL Normal 2.7-4.8 [facility] Comment on above: Order Comment: Speci men Type: BLOOD SPECIMENOrdering Facility: [facility] Address: [place] [id number] Performed By: #### 2 4321-2, 17982-0, 2777-1 ####[facility]ATORYCLIA [id number] [place] [id number] [facility] NTon 05-14-2022 THERAPY NT HNO ID: [id number] Author: Madhu Smith, PT Service: Physical Therapy Author Type: Physical Therapist Type: Therapy (PT/OT/Speech/Resp) Filed: 05/14/2022 7:36 PM Note Text: Physical Therapy Evaluation SERVICE DATE: 05/14/2022 SERVICE TIME: 1210 to 1240 ROOM: [place] [address] Recommended Discharge Disposition: Home PT Anticipated Discharge Needs: Physical Assist at Home Physical Assist at Home for: Cleaning, Laundry, Meals, Shopping, Transportation Recommended Discharge Equipment: To Be Determined PT 6 Clicks Score: 18 Precautions/Activity Restrictions: Fall Risk, Lines/Tubes/Drains, Bed/Chair Alarm Precaution/Activity Restriction Comments: mobilize, WBAT Reason for Hospital Admission: non-healing right heel ulcer who presents for elective right femoral endarterectomy, right external iliac stent 05/13. 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, prostate ca s/p XRT, PAD c/b non-healing right heel ulcer Response to Therapy Interventions: Good participation in activities, Low activity tolerance Continue skilled needs due to: Functional mobility/skill impairments, Continued monitoring of vital signs during mobility required Physical Therapy Problem List: Pain, Decreased Activity Tolerance, Decreased Strength, Functional Mobility Impairment, Balance Impaired Treatment Interventions: Education, Strengthening, Functional Mobility Training, Balance Training, Energy Conservation Training, Joint Mobility Plan for next visit: Bed mobility, Gait training, Sit to Stand Transfers, Standing Balance, Standing Tolerance, Walker Training Home Environment Patient Lives With: Spouse Assistance Available: PRN Entry To Home: Stairs Number Of Stairs Into Home: 1 Number Of Stairs To Bed/Bath: 0 Laundry: completes Equipment Owned: Wheelchair- Manual, Walker- Wheeled, Grab Bars- Shower, Shower Chair, Home Oxygen Prior Functional Level: Required Assistance Assistance Required With: Cleaning, Laundry, Meals, Shopping Prior Functional Level Comments: Per pt, ambulates using a cane. Ind with ADL's and has assistance with IADL's. Pt's mobility is limited due to SOB at baseline CURRENT FUNCTIONAL STATUS: Most recent performance Current Functional Mobility Assist Level Additional Information Rolling Supine to Sit Sit to Supine Scooting Stand By Assistance Sit to Stand Contact Guard Assistance Stand to Sit Contact Guard Assistance Bed to Chair Toilet/Commode Gait Contact Guard Assistance, Minimal Assistance (Min assistance given when stepping backwards) Gait Device: Wheeled Walker, Other: See Comment (R sx shoe) Gait Distance (feet): 14' Stairs Curb Step Car Transfer Blank rebolledo indicate activity not attempted General Deviations/Observations: Antalgic gait, Jane decreased, Flexed trunk posture, Step length decreased, Improper distancing from assistive device (instability, performed step to gait, O2 desaturation with exertion) Balance: Static Sitting, Static Standing, Dynamic Standing Static Sitting Balance: Good Patient able to maintain balance without handhold support, limited postural sway Static Standing Balance: Fair Patient able to maintain balance with handhold support, may require occasional minimal assistance Dynamic Standing Balance: Fair Patient accepts minimal challenge, able to maintain balance while turning head/trunk JH-HLM: 6: Walk 10 steps or more Learning/Educational Needs: Functional Activities/Mobility Goals for Plan of Care: Patient/Caregiver Goals: Go Home Goals: Patient will demonstrate progress with functional mobility to allow safe discharge to home with available support and/or physical assistance. Rehab Potential: Good Patient will be discontinued from Physical Therapy when no further skilled needs are identified in this setting. PLAN: PT Frequency: 3 times per week Plan of Care developed with: Patient, Family TREATMENT INTERVENTIONS: Therapy Diagnosis: Reduced mobility-other, Muscle Weakness (generalized), Unsteadiness on feet, Abnormalities of gait and mobility-other Interventions Provided: Evaluation, Gait Training (37315) $ Evaluation-Low (25386) Billed Units: 1 unit Gait Training (77595) Treatment Minutes: 10 $ Gait Training (12970) Billed Units: 1 unit Training AND education provided in: Assistive device use, Benefits of in-hospital mobility, Discharge planning, Disease specific education, Equipment, Exercise program, Gait pattern, reduction of deviations, Positioning, Pre-gait activities, Role of Physical Therapy, Standing balance, Transfers The following therapeutic skills were used: Activity dosing, Assessment of tolerance including vitals response to activity, Cues for sequencing/proper technique for activity, Cuing tactile, Cuing verbal, Cuing visual, Management of critical lines, tu (more content not included)... 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 (HCC) 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, with fat layer 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) (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 Post Anesthesia Patient Status Patient Evaluation: ICU. PACU/ICU Patient Condition: stable. Anticipated Disposition: ICU planned admission. Neurological Status: aware and responsive. Pulmonary Status: breathing comfortably on supplemental oxygen Airway Control: returned to baseline unsupported. Cardiovascular Status: stable. Pain Management: clinically adequate - multimodal analgesia pain management approach Postoperative Hydration: acceptable. Intraoperative Events: no significant anesthesia events Recommendation: continue current plan of care and further care per PACU/ICU/floor team. Anesthesia Observations No Documentation SIGNATURE: Emanuel Soto MD PATIENT NAME: Oswaldo Corley DATE: May 13, 2022 TIME: 6:14 PM CSN: [id number] [facility] ANES PRE-OPon 05-13-2022 ANES PRE-OP HNO ID: [id number] Author: Gabriela Hurst MD Service: Anesthesiology Author Type: Anesthesiologist Type: Anesthesia Preprocedure Evaluation Filed: 05/13/2022 10:05 AM Note Text: ANESTHESIOLOGY DAY OF SURGERY NOTE : 1940 Procedure Information Date/Time: 05/13/22 1000 Procedure: ENDARTERECTOMY FEMORAL WITH ANGIOPLASTY (Right) - residential service technician needed Location: [facility] / OR Surgeons: Alex Rivas MD Estimated body mass index is 24.41 kg/m? as calculated from the following: Height as of 04/30/22: 180.3 cm (5' 11). Weight as of 05/12/22: 79.4 kg (175 lb). Most recent hematocrit and potassium results: Hematocrit 44.5 04/30/2022 Potassium 4.5 04/30/2022 Relevant Problems CARDIO (+) Abdominal aortic aneurysm (AAA) without rupture (HCC) (+) Coronary artery disease involving [place] coronary artery of [place] heart without angina pectoris (+) Essential hypertension (+) PAD (peripheral artery disease) (HCC) (+) Peripheral arterial disease (HCC) (+) S/P CABG x 3 PULMONARY (+) Chronic obstructive pulmonary disease (HCC) I - PHYSICAL EVALUATION AIRWAY Patient intubated: No. Tracheostomy tube not present Mallampati: III. TM distance: >3 FB. Neck ROM: full ROM without neurological symptoms. Mouth opening: adequate. Short neck: no. Thick neck: no DENTAL Dentures, upper: complete. Dentures, lower: complete. II - ANESTHESIA PLAN ASA Score: 3 Anesthetic Plan: general Airway type: ETT The patient is not a current smoker. NPO Status: adequate Beta Konrad Monitoring Plan Monitoring plan: invasive hemodynamic monitoring. Monitoring method: arterial Line Post Procedure Analgesic Plan Postoperative analgesic plan: multimodal analgesia and parenteral or oral opioids. Informed Consent Anesthetic risks, benefits, alternatives, personnel and consent discussed: yes. Patient / Responsible Republican agrees to proceed: yes Patient / Surrogate agrees to blood products: Yes DNR status not reviewed with patient and/or family prior to surgery. Significant changes in the patient condition since the History and Physical, not otherwise documented in primary service progress note: no. Potential Anesthesia issues that may suggest increased risk of complications or contraindication to planned procedure: none. Last dose of Plavix 7 days ago. Vitals Value Taken Time BP 147/77 05/13/22824 Pulse 93 05/13/22824 Resp 16 05/13/22824 Temp 36.5 ?C (97.7 ?F) 05/13/22824 SpO2 100 % 05/13/22824 Facility-Administered Medications as of 05/13/2022 Medication Dose Route Frequency - lidocaine (PF) 10 mg/mL (1 %) 1-2 mg injection (XYLOCAINE) 0.1-0.2 mL INTRADERMAL PRN - lactated ringers iv infusion 5-30 mL/hr INTRAVENOUS CONTINUOUS - NaCl 0.9% iv flush bag 20 mL INTRAVENOUS PRN - ceFAZolin iv piggyback 2 g in D5W (iso-osmotic) 100 mL (ANCEF) 2 g INTRAVENOUS Pre-Op Once Outpatient Medications as of 05/13/2022 Medication Sig - acetaminophen 325 mg cap Take 650 mg by mouth. - LORazepam (ATIVAN) 1 mg tablet Take 1 tablet by mouth three times daily for 90 days. - oxyCODONE IR (ROXICODONE) 5 mg immediate release tablet TAKE 1/2 TABLET BY MOUTH 4 TIMES DAILY NEEDED FOR SHORTNESS OF BREATH - clopidogrel (PLAVIX) 75 mg tablet Take 1 tablet by mouth once daily. - tamsulosin (FLOMAX) 0.4 mg Take 0.4 mg by mouth once daily. - predniSONE (DELTASONE) 10 mg tablet Take 10 mg by mouth once daily. - guaiFENesin (MUCINEX) 600 mg 12 hr tablet Take 2 tablets by mouth twice daily. - DULoxetine (CYMBALTA) 30 mg capsule 1 capsule once daily. - aspirin, enteric coated (ASPIRIN, ENTERIC COATED) 81 mg EC tablet Take 81 mg by mouth once daily. - tiotropium (SPIRIVA WITH HANDIHALER) 18 mcg inhalation capsule Inhale 1 capsule as instructed once daily. Use with handihaler. - albuterol HFA (PROAIR HFA) 90 mcg/actuation inhaler Inhale 2 Puffs as instructed every 4 hours as needed for Wheezing/Shortness of Breath. - budesonide-formoterol (SYMBICORT) 160-4.5 mcg/actuation inhaler Inhale 2 Puffs as instructed twice daily. - nitroglycerin sublingual (NITROSTAT) 0.4 mg SL tablet Dissolve 1 tablet under the tongue every 5 minutes as needed. - ondansetron (ZOFRAN) 4 mg tablet 1 tablet as needed. - DULERA 200-5 mcg/actuation inhaler Take 2 Puffs by mouth twice daily. I have interviewed and examined the patient. I have reviewed the medical record and/or the pre-anesthesia evaluation, pertinent labs, and test results. This contains updated information obtained within 48 hours of Surgery/Procedure. SIGNATURE: Gabriela Hurst MD PATIENT NAME: Oswaldo Corley DATE: May 13, 2022 TIME: 10:04 AM CSN: [id number] [facility] BRIEF OP NOTon 05-13-2022 BRIEF OP NOT HNO ID: [id number] Author: Marsha Blanca MD Service: Vascular Surgery Author Type: Resident Type: Brief Op Note Filed: 05/13/2022 6:04 PM Note Text: GENERAL SURGERY BRIEF OP NOTE LOG ID: [id number] Surgery/Procedure Date: 05/13/2022 Incision/Procedure Start Time: 12:19 PM Incision Close/Procedure End Time: 5:16 PM Surgeon(s) and Mathematical Engineer(s): Surgeon(s) and Role: Panel 1: * Alex Rivas MD - Primary * Marsha Blanca MD - Resident - Assisting Panel 2: * Lorne Hutchinson MD - Primary No Additional Staff Procedure(s): RIGHT femoral cutdown RIGHT PECAN GROWER/proximal SFA endarterectomy + patch angioplasty Selective right lower extremity angiogram RIGHT EIA/PECAN GROWER stent placement and balloon angioplasty Anesthesia: General Findings: Severe calcified atherosclerotic plaque at , please see operative report for full details Tubes/Drains: None IV Fluids: Crystalloid 2300cc Estimated Blood Loss: 1000 mls Estimated Urine Output: 250 cc Specimens: ID Type Source Tests Collected by Time Destination 1 : Blood BLOOD CONFIRM BLOOD TYPE Alex Rivas MD 05/13/2022 10:06 AM Implants: Implant Name Type Inv. Item Serial No. Weigher And Grader Lot No. LRB No. Used Action FABRIC HEMASHIELD THK.76MM COLLAGEN 6X2IN CARDIOVASCULAR 2 VELOUR KNITTED - [id number] Graft FABRIC HEMASHIELD THK.76MM COLLAGEN 6X2IN CARDIOVASCULAR 2 VELOUR KNITTED [id number] [employer] [facility] 20M23 Right 1 Implanted STENT ABSOLUTE PRO 10MM NITINOL 60MM 135CM BILIARY SELF EXPANDABLE - [id number] Vascular Stents STENT ABSOLUTE PRO 10MM NITINOL 60MM 135CM BILIARY SELF EXPANDABLE GROSS VASCULAR [id number] Right 1 Implanted STENT ABSOLUTE PRO 10MM NITINOL 60MM 135CM BILIARY SELF EXPANDABLE - [id number] Vascular Stents STENT ABSOLUTE PRO 10MM NITINOL 60MM 135CM BILIARY SELF EXPANDABLE GROSS VASCULAR [id number] Right 1 Implanted Wound Classification: Class 1, operative wound clean, non-traumatic, with no inflammation encountered, no break in technique, gastrointestinal and genitor-urinary tracts not entered Complications: None Pulses: RIGHT - PT biphasic/DP biphasic; LEFT - PT biphasic/DP biphasic Pre-Op/Pre-Procedure Diagnosis: Pre-Op Diagnosis Codes: * 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 (HCC) [I70.221] * 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, with fat layer 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) [E13.621, L97.412] Post-Op/Post-Procedure Diagnosis: Same SIGNATURE: Marsha Blanca MD PATIENT NAME: Oswaldo Corley DATE: May 13, 2022 TIME: 5:43 PM PAGER/CONTACT #: [phone] Normal [facility] Basic metabolic 2000 panelon 05-13-2022 Anion gap [Moles/Vol] 8 mmol/L Low 9-18 [facility] Comment on above: Order Comment: Speci men Type: BLOOD SPECIMEN Ordering Facility: [facility] Address: [place] [address] Performed By: #### 2 4321-2, 2777-1, 43999-3 #### [facility] CLIA [id number] [address] [place] [address] [place] Calcium [Mass/Vol] 8.3 mg/dL Low 8.5-10.2 [facility] Comment on above: Order Comment: Speci men Type: BLOOD SPECIMEN Ordering Facility: [facility] Address: [address] [place] [address] Performed By: #### 2 4321-2, 2776-03, #### [facility] CLIA [id number] [address] [place] [address] [place] Chloride [Moles/Vol] 104 mmol/L Normal 97-105 [facility] Comment on above: Order Comment: Speci men Type: BLOOD SPECIMEN Ordering Facility: [facility] Address: [address] [place] [address] Performed By: #### 2 4321-2, 2776-03, #### [facility] CLIA [id number] [address] [place] [address] [place] CO2 [Moles/Vol] 27 mmol/L Normal 22-30 [facility] Comment on above: Order Comment: Speci men Type: BLOOD SPECIMEN Ordering Facility: [facility] Address: [address] [place] [address] Performed By: #### 2 4321-2, 2776-03, #### [facility] CLIA [id number] [address] [place] [address] [place] Creatinine [Mass/Vol] 0.72 mg/dL Low 0.73-1.22 [facility] Comment on above: Order Comment: Speci men Type: BLOOD SPECIMEN Ordering Facility: [facility] Address: [address] [place] [address] Performed By: #### 2 4321-2, 2776-03, #### [facility] CLIA [id number] [address] [place] [address] [place] ESTIMATED GLOMERULAR FILTRATION RATE 93 mL/min/1.73m??? Normal >=60 [facility] Comment on above: Order Comment: Speci men Type: BLOOD SPECIMEN Ordering Facility: [facility] Address: [address] [place] [address] Result Comment: Karey mated Glomerular Filtration Rate (eGFR) is calculated using the 2020 CKD-EPI creatinine equation. This equation utilizes serum creatinine, sex, and age as parameters. The creatinine assay has traceable calibration to isotope dilution-mass spectrometry. Refer to KDIGO guidelines for clinical interpretation. In patients with unstable renal function, e.g. those with acute kidney injury, the eGFR may not accurately reflect actual GFR. Performed By: #### 2 4321-2, 2777-, #### [facility] CLIA [id number] [place] [address] [place] Glucose [Mass/Vol] 130 mg/dL High 74-99 [facility] Comment on above: Order Comment: Fab doran Type: BLOOD SPECIMEN Ordering Facility: [facility] Address: [address] [place], [place] [id number] Result Comment: The [place] Diabetes Association (ADA) provides guidance for cutoff values for fasting glucose and random glucose. The ADA defines fasting as no caloric intake for at least 8 hours. Fasting plasma glucose results between 100 to 125 [...] Standards of Medical Care in Diabetes 2016, [place] [employer] Association. Diabetes Care. 2016.39(Suppl 1). Performed By: #### 2 4321-2, 2777, #### [facility] CLIA [id number] [address] [place] [address] [place] Potassium [Moles/Vol] 4.0 mmol/L Normal 3.7-5.1 [facility] Comment on above: Order Comment: Fab doran Type: BLOOD SPECIMEN Ordering Facility: [facility] Address: [address] [id number] Performed By: #### 2 4321-2, 2777-, #### [facility] CLIA [id number] [address] [place] [address] [place] Sodium [Moles/Vol] 139 mmol/L Normal 136-144 [facility] Comment on above: Order Comment: Speci men Type: BLOOD SPECIMEN Ordering Facility: [facility] Address: [address] [address] Performed By: #### 2 4321-2, 2777-1, #### [facility] CLIA [id number] [place] [address] [place] Urea nitrogen [Mass/Vol] 13 mg/dL Normal 9-24 [facility] Comment on above: Order Comment: Speci men Type: BLOOD SPECIMEN Ordering Facility: [facility] Address: [address] [address] Performed By: #### 2 4321-2, 27708-30, #### [facility] CLIA [id number] [address] [place] [address] [place] CBC panel Auto (Bld)on 05-13 Erythrocyte distribution width (RBC) [Ratio] 13.6 % Normal 11.5-15.0 [facility] Comment on above: Order Comment: Speci men Type: BLOOD SPECIMEN Ordering Facility: [facility] Address: [address] [place] [address] Performed By: #### 5 8410-2 #### [facility] CLIA [id number] [address] [place] [address] [place] Hematocrit (Bld) [Volume fraction] 36.2 % Low 39.0-51.0 [facility] Comment on above: Order Comment: Speci men Type: BLOOD SPECIMEN Ordering Facility: [facility] Address: [address] [address] Performed By: #### 5 8410-2 #### [facility] CLIA [id number] [address] [place] [address] [place] Hemoglobin (Bld) [Mass/Vol] 11.7 g/dL Low 13.0-17.0 [facility] Comment on above: Order Comment: Speci men Type: BLOOD SPECIMEN Ordering Facility: [facility] Address: [address] [place] [address] Performed By: #### 5 8410-2 #### [facility] CLIA [id number] [address] [place] [address] [facility] MCH (RBC) [Entitic mass] 30.8 pg Normal 26.0-34.0 [facility] Comment on above: Order Comment: Speci men Type: BLOOD SPECIMEN Ordering Facility: [facility] Address: [address] [place] [address] Performed By: #### 5 8410-2 #### [facility] CLIA [id number] [address] [place] [address] [place] MCHC (RBC) [Mass/Vol] 32.3 g/dL Normal 30.5-36.0 [facility] Comment on above: Order Comment: Speci men Type: BLOOD SPECIMEN Ordering Facility: [facility] Address: [address] [place] [address] Performed By: #### 5 8410-2 #### [facility] CLIA [id number] [address] [place] [address] [place] MCV (RBC) [Entitic vol] 95.3 fL Normal 80.0-100.0 [facility] Comment on above: Order Comment: Speci men Type: BLOOD SPECIMEN Ordering Facility: [facility] Address: [address] [place] [address] Performed By: #### 5 8410-2 #### [facility] CLIA [id number] [address] [place] [address] [place] Nucleated RBC (Bld) [#/Vol] 10*3/uL Normal <0.01 [facility] Comment on above: Order Comment: Speci men Type: BLOOD SPECIMEN Ordering Facility: [facility] Address: [address] [place] [address] Performed By: #### 5 8410-2 #### [facility] CLIA [id number] [address] [place] [address] [place] Platelet mean volume (Bld) [Entitic vol] 8.7 fL Low 9.0-12.7 [facility] Comment on above: Order Comment: Speci men Type: BLOOD SPECIMEN Ordering Facility: [facility] Address: [address] [place] [address] Performed By: #### 5 8410-2 #### [facility] CLIA [id number] [place] [address] [place] Platelets (Bld) [#/Vol] 163 10*3/uL Normal 150-400 [facility] Comment on above: Order Comment: Speci men Type: BLOOD SPECIMEN Ordering Facility: [facility] Address: [address] [address] Performed By: #### 5 8410-2 #### [facility] CLIA [id number] [address] [place] [address] [place] RBC (Bld) [#/Vol] 3.80 10*6/uL Low 4.20-6.00 [facility] Comment on above: Order Comment: Speci men Type: BLOOD SPECIMEN Ordering Facility: [facility] Address: [address] [address] Performed By: #### 5 8410-2 #### [facility] CLIA [id number] [address] [place] [address] [place] WBC (Bld) [#/Vol] 11.23 10*3/uL High 3.70-11.00 [facility] Comment on above: Order Comment: Speci men Type: BLOOD SPECIMEN Ordering Facility: [facility] Address: [address] [place] [address] Performed By: #### 5 8410-2 #### [facility] CLIA [id number] [address] [place] [address] [place] CONFIRM BLOOD TYPEon 023 ABO O Normal [facility] Comment on above: Order Comment: Speci men Type: BLOOD SPECIMENOrdering Facility: [facility] Address: [address] [place] [address] Performed By: #### C ONABO ####[facility] [id number] [address] [place] Rh Nom (Bld) Negative Normal [facility] Comment on above: Order Comment: Speci men Type: BLOOD SPECIMENOrdering Facility: [facility] Address: [place] [address] Performed By: #### C ONABO ####[facility] [id number] [address] OF 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 Intra-op difficult suazo placement due to urethral stricture PAST MEDICAL HISTORY Diagnosis Date Abdominal aortic aneurysm (AAA) without rupture (HCC) 11/19/2018 Atypical chest pain CAD (coronary artery disease) s/p CABG 1999, PCI w/ stents COPD (chronic obstructive pulmonary disease) (HCC) Diabetic ulcer of right foot (HCC) 04/30/2022 Hyperlipidemia Hyperlipidemia Hypertension Prostate cancer (HCC) Dx Dec 2014, s/p radiation, on hormonal therapy PAST SURGICAL HISTORY Procedure Laterality Date ANGIOGRAM EXTREMITY LUNG BIOPSY Left needle biopsy LUNG SURGERY HX 02/20/20 lt lung nodule removed PAST SURGICAL HISTORY OF TURP PAST SURGICAL HISTORY OF 03/02/1999 triple bypass FAMILY HISTORY Problem Relation Age of Onset Cancer Mother breast, bone Cancer Sister breast Emphysema Sister Smoker Diabetes Father Heart Father Diabetes Brother Heart Brother other (Other) Brother Parkinsons Diabetes Paternal Grandmother Heart Paternal Grandmother Social History Tobacco Use Smoking status: Former Packs/day: 2.00 Years: 40.00 Pack years: 80.00 Types: Cigarettes Start date: 11/08/1962 Quit date: 05/13/2002 Years since quittin.0 Smokeless tobacco: Never Vaping Use Vaping Use: Never used Substance Use Topics Alcohol use: Not Currently Alcohol/week: 3.0 standard drinks Types: 3 Cans of beer per week Comment: light beer Drug use: No PRIOR TO ADMISSION MEDICATIONS atorvastatin (LIPITOR) 20 mg tablet, Take 1 tablet by mouth once daily., Disp: 90 tablet, Rfl: 3, 05/12/2022 at 2100 acetaminophen 325 mg cap, Take 650 mg by mouth., Disp: , Rfl: , 05/13/2022 at 0630 LORazepam (ATIVAN) 1 mg tablet, Take 1 tablet by mouth three times daily for 90 days., Disp: 90 tablet, Rfl: 2, 05/13/2022 at 0600 oxyCODONE IR (ROXICODONE) 5 mg immediate release tablet, TAKE 1/2 TABLET BY MOUTH 4 TIMES DAILY NEEDED FOR SHORTNESS OF BREATH, Disp: , Rfl: , 05/13/2022 at 0600 clopidogrel (PLAVIX) 75 mg tablet, Take 1 tablet by mouth once daily., Disp: 90 tablet, Rfl: 3, 05/06/2022 tamsulosin (FLOMAX) 0.4 mg, Take 0.4 mg by mouth once daily., Disp: , Rfl: , 05/12/2022 at 2100 predniSONE (DELTASONE) 10 mg tablet, Take 10 mg by mouth once daily., Disp: , Rfl: , 05/13/2022 at 0600 guaiFENesin (MUCINEX) 600 mg 12 hr tablet, Take 2 tablets by mouth twice daily., Disp: , Rfl: , 05/13/2022 DULoxetine (CYMBALTA) 30 mg capsule, 1 capsule once daily., Disp: , Rfl: , 05/12/2022 at 2000 aspirin, enteric coated (ASPIRIN, ENTERIC COATED) 81 mg EC tablet, Take 81 mg by mouth once daily., Disp: , Rfl: , 05/12/2022 at 2100 tiotropium (SPIRIVA WITH HANDIHALER) 18 mcg inhalation capsule, Inhale 1 capsule as instructed once daily. Use with handihaler., Disp: , Rfl: , 05/12/2022 at 1200 albuterol HFA (PROAIR HFA) 90 mcg/actuation inhaler, Inhale 2 Puffs as instructed every 4 hours as needed for Wheezing/Shortness of Breath., Disp: 1 Inhaler, Rfl: 5, 05/12/2022 budesonide-formoterol (SYMBICORT) 160-4.5 mcg/actuation inhaler, Inhale 2 Puffs as instructed twice daily., Disp: , Rfl: nitroglycerin sublingual (NITROSTAT) 0.4 mg SL tablet, Dissolve 1 tablet under the tongue every 5 minutes as needed., Disp: 1 Bottle of 25, Rfl: 3 ondansetron (ZOFRAN) 4 mg tablet, 1 tablet as needed., Disp: , Rfl: DULERA 200-5 mcg/actuation inhaler, Take 2 Puffs by mouth twice daily., Disp: , Rfl: ALLERGIES Allergen Reactions Imdur [Isosorbide M* Hives Black out and dizziness Objective VITAL SIGNS BP 147/77 Pulse 93 Temp 36.5 ?C (97.7 ?F) (Temporal) Resp 16 SpO2 100% There is no height or weight on file to calculate BMI. 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 Normal [facility] HISTORY PHYSICAL HNO ID: [id number] Author: Marsha Blanca MD Service: Vascular Surgery Author Type: Resident Type: HANDP Filed: 05/13/2022 9:57 AM Note Text: Attestation signed by Alex Rivas MD at 05/14/2022 1:58 PM Agree Seen and examined UPDATED HISTORY AND PHYSICAL EXAMINATION SERVICE DATE: 05/13/2022 SERVICE TIME: 9:40 AM PHYSICAL EXAM MUST BE COMPLETED ON ADMISSION The History and Physical (completed in the past 30 days) has been reviewed and the patient has been examined. The contents accurately reflect the patient's condition with the following additions or revisions since the HANDP was completed. Examination indicates no changes. This HANDP can be found in the Electronic Medical Record dated 04/30. SIGNATURE: Marsha Blanca MD PATIENT NAME: Oswaldo Corley DATE: May 13, 2022 TIME: 9:40 AM Normal [facility] Magnesium SerPl-mCncon 05-13 Magnesium [Mass/Vol] 1.9 mg/dL Normal 1.7-2.3 [facility] Comment on above: Order Comment: Speci men Type: BLOOD SPECIMEN Ordering Facility: [facility] Address: [address] [place] [address] Performed By: #### 2 4321-2, 2777-1, 94398-8 #### [facility] CLIA [id number] [address] [place] [address] [facility] NURSING PROGon 05-13-2022 NURSING PROG HNO ID: [id number] Author: Mirna Ramires RN Service: Nursing Author Type: Registered Nurse Type: Nursing Progress Note Filed: 05/13/2022 8:00 AM Note Text: PATIENT EDUCATION TOPIC: PROCEDURE / SURGERY: Pre-op Teaching: Logistics PATIENT NAME: Oswaldo Corley PATIENT LOCATION: [facility] OR POOL/[facility] OR POOL READINESS TO LEARN COGNITIVE ABILITY: Alert and oriented MOTIVATION TO LEARN: Eager FAMILY SUPPORT: None - Unavailable/disinterested INSTRUCTION PROVIDED TO: Patient PATIENT LEARNS BEST BY: Verbal Instruction FACTORS AFFECTING LEARNING: None PHYSICAL LIMITATIONS AFFECTING LEARNING: None LEARNING RESPONSE DIAGNOSIS: ADULT: Well Adult PATIENT/FAMILY RESPONSE: Verbalizes understanding of: PRE-OPERATIVE INSTRUCTIONS-Correct action to take to follow pre-operative instructions METHOD OF INSTRUCTION: Verbal instruction FOLLOW-UP PLAN: Complete - No need for follow-up INSTRUCTIONAL AIDS USED: NA SUPPLEMENTAL MATERIAL PROVIDED TO PATIENT: None REFERRAL (RECOMMENDATION): None Electronically Signed By: Mirna Ramires [facility] OPERATIVE NOon 05-13-2022 OPERATIVE NO HNO ID: [id number] Author: Alex Rivas MD Service: Vascular Surgery Author Type: Physician Type: Operative Report Filed: 05/14/2022 8:31 AM Note Text: OPERATIVE/PROCEDURE REPORT LOG ID: [id number] Surgery/Procedure Date: 05/13/2022 Incision/Procedure Start Time:12:19 PM Incision Close/Procedure End Time: 5:16 PM Surgeon(s)/Proceduralist(s) and Mathematical Engineer(s): Surgeon(s) and Role: Panel 1: * Alex Rivas MD - Primary * Marsha Blanca MD - Resident - Assisting Panel 2: * Lorne Hutchinson MD - Primary No Additional Staff Procedure(s): Right ileofemoral and deep femoral endarterectomy with patch angioplasty Right SFA eversion endarterectomy Right external iliac artery stent Aortogram, partial right leg diagnostic angiography Anesthesia: General Operative indication: 81 year old male who presents with right lower extremity rest pain and a heel ulcer Procedure details: A huddle was performed in standard fashion with the patient, surgery, anesthesia, and nursing teams to confirm patient name, medical record number, date of , allergies, procedure, site of procedure, and need for possible blood transfusion if needed. All in agreement to proceed as planned. The patient was taken to the operating room and laid supine on the table. Patient was placed under general anesthesia and appropriate monitoring lines placed. Patient was positioned prepped and draped in usual sterile fashion. Prior to incision a time in was performed to once again confirm procedural and patient details. A longitudinal groin incision was made on the right. The external iliac artery, common femoral artery, profunda and superficial femoral artery were mobilized and controlled with vessel loops as were the major side branches. After adequate arterial control heparin was administered and an ACTs was measured. Additional heparin was administered as needed to achieve adequate anticoagulation. ACTs were re-assessed every 30 minutes with additional heparin administered as needed. Vessels were clamped in the usual fashion. An arteriotomy was made with an 11 blade and Trejo scissors from the external iliac artery to the second branch of the deep femoral artery. Plaque was bulky and heavily calcified. An endarterectomy was performed with a Bowen elevator. A profundaplasty was performed with the Bowen and fine clamps. The proximal plaque was removed from the external iliac artery by transecting it off of the back wall and distally from the deep femoral artery. Two 6-0 prolene sutures were used to secure the distal endpoint into the first perforating branch. After endarterectomy the arteriotomy was closed with a dacron hemashield patch and 5-0 Prolene. . Prior to completing the patch anastomosis, a 7F sheath was placed through the suture line and secured with tightening of the Prolene. The arteries were then unclamped and flushed sequentially clearing all air and debris. The clamps were removed and the suture line inspected. An aortogram, pelvic angiogram, and angiogram of the femoral repair were now performed via the sheath. The iliac artery was crossed with a Ovando catheter and Ovando wire. We found stenosis in the external iliac artery. The artery was treated as follows: Predilation with 5mm and 6mm balloon, stenting from the common iliac artery down to the patch with two 10x60 Absolute Pro nitinol stents. Completion angiogram showed a good technical result. The sheath was removed and the suture line reinforced. Protamine was administered and hemostasis was obtained. The incision was irrigated with antibiotic solution. The incision was closed in layers with 3-0 Vicryl suture. Skin was closed with tracy. The patient was taken to the ICU in stable condition. Pre-Op/Pre-Procedure Diagnosis: atherosclerosis of the right lower extremity with rest pain and heel ulcer Post-Op/Post-Procedure Diagnosis: same Estimated Blood Loss: 300 ml Specimens: plaque Implantable Devices: Dacron patch, Absolute pro 10x60 x2 Drains: none Complications: none I/primary surgeon/proceduralist performed the procedure with assistance. SIGNATURE: Alex Rivas MD PATIENT NAME: Oswaldo Corley DATE: 05/13/2022 TIME: 8:20 AM PAGER/CONTACT #: [phone] [facility] OPERATIVE NO HNO ID: [id number] Author: Lorne Hutchinson MD Service: Urology Author Type: Physician Type: Operative Report Filed: 05/13/2022 1:16 PM Note Text: OPERATIVE/PROCEDURE REPORT Name: Oswaldo Corley LOG ID: [id number] Surgery/Procedure Date: 05/13/2022 Incision/Procedure Start Time: 12:19 PM Incision Close/Procedure End Time: Surgeon(s)/Proceduralist(s) and Mathematical Engineer(s): Surgeon(s) and Role: Panel 1: * Alex Rivas MD - Primary * Marsha Blanca MD - Resident - Assisting Panel 2: * Lorne Hutchinson MD - Primary Procedure(s): Suazo catheter placement Anesthesia: General Operative Indication: Oswaldo Corley is a 81 year old male undergoing vascular surgery with Dr. Rivas. I was asked to assist with Suazo catheter placement intraoperatively after resistance was felt upon attempts at catheter placement. Operative Findings: Mild meatal stenosis. Resistance met at the distal pendulous urethra, passed with a 16Fr coude catheter and advanced to the bladder, with return of clear yellow urine. Procedure Details: By the time I presented to the operating room, Oswaldo Corley had already been placed under general anesthesia and the penis had been prepped and draped in the usual sterile manner. A surgical timeout was performed. A 16Fr coude catheter was introduced and advanced with resistance met at the distal pendulous urethra. I was able to advance the catheter beyond this with a moderate amount of force after which the catheter passed easily into the bladder with return of clear urine. These findings were suggestive of a pendulous urethral stricture. The balloon was inflated to 10cc and placed to gravity drainage. I handed the case over to Dr. Rivas team. Pre-Op/Pre-Procedure Diagnosis: History of BPH, intraoperative consultation for Suazo catheter placement Post-Op/Post-Procedure Diagnosis: Same Estimated Blood Loss: 0 ml for my portion Specimens: None for my portion Implantable Devices: None Drains: 16Fr coude catheter Complications: None Incidental Lacerations/Perforations: None I performed the procedure without assistance. Anatomic Site: Prostate, Laterality: N/A Approach: N/A Device: None Qualifier: None Plan: Plan for voiding trial on post-operative day #3 as long as no need for continued catheterization at that point from a Vascular Surgery perspective. Outpatient urology follow-up should be arranged with his local urologist, or if he prefers with our team which we can coordinate. SIGNATURE: Lorne Hutchinson MD PATIENT NAME: Oswaldo Corley DATE: May 13, 2022 Normal [facility] PT panel Coag (PPP)on 2022 INR Coag (PPP) [Relative time] {INR} Low 0.9-1.3 [facility] Comment on above: Order Comment: Speci men Type: BLOOD SPECIMEN Ordering Facility: [facility] Address: [address] [id number] Result Comment: Isabell min K Antagonist (VKA) Therapeutic Range: INR 2 to 3 (Target INR of 2.5) Note: For patients treated with VKA drugs, such as warfarin, the [employer] 2012 Guideline recommends a therapeutic INR range of 2 to 3 (target INR of 2.5). This recommendation includes high-risk patients with antiphospholipid syndrome with previous arterial or venous thromboembolism, current-generation mechanical or bioprosthetic aortic heart valve replacement. Note: Patients with mechanical aortic valve replacement and additional risk factors for thromboembolic events (atrial fibrillation, previous thromboembolism, LV dysfunction, hypercoagulable conditions) or an older generation mechanical AVR (i.e., ball in-Cage) or any mechanical MVR should have a INR therapeutic range of 2.5 to 3.5 (target INR of 3). Eliane GH, et al. Chest 2012, 141:7S-47S Wes RA, et al. [facility] 2017, 70: 252-289 Performed By: #### 1 4979-9, 21062-5 #### [facility] CLIA [id number] [place] [address] [facility] PT Coag (PPP) [Time] 10.3 s Normal 9.7-13.0 [facility] Comment on above: Order Comment: Speci men Type: BLOOD SPECIMEN Ordering Facility: [facility] Address: [address] [place] [address] Performed By: #### 1 4979-9, 30547-4 #### [facility] CLIA [id number] [place] [address] [place] Phosphate SerPl-mCncon 05-13 Phosphate [Mass/Vol] 3.2 mg/dL Normal 2.7-4.8 [facility] Comment on above: Order Comment: Speci men Type: BLOOD SPECIMEN Ordering Facility: [facility] Address: [address] [place] [address] Performed By: #### 2 4321-2, 2777-1, 17948-4 #### [facility] CLIA [id number] [place] [address] [place] SARS-CoV-2 RNA Resp Ql DORYS+p robeon 05-13-2022 SARS-CoV-2 (COVID-19) RNA DORYS+probe Ql (Resp) COVID 19 RESULT: Not detected The method used is RT-PCR or an equivalent NAAT method. Reference Range(the expected result in uninfected individuals): Not detected Normal [facility] Comment on above: Performed By: #### 9 4500-6 ####[facility] [id number] [place] [address] [place] aPTT PPPon 05-13-2022 aPTT Coag (PPP) [Time] 31.2 s Normal 23.0-32.4 [facility] Comment on above: Order Comment: Speci men Type: BLOOD SPECIMEN Ordering Facility: [facility] Address: [address] [place] [address] Performed By: #### 1 4979-9, 36781-6 #### [facility] [place] [id number] [address] [place] [address] [place] ECHOon 04-24-2022 [facility] No Panel InformationOrdered By: KHOA Garcia on 04-09-2022 Prostate Specific Antigen Total 0.18 ng/mL 0.0-4.0 [facility] Comment on above: This test was perfor med using the TPSA assay method for the[employer] chemistry system. Values obtained with differentassay methods cannot be used interchangably.When changing PSA assays in the course of monitoring apatient, additional sequential testing should be carriedout to confirm baseline values. XR FOOT GENERAL 3V AP/LAT/OB L RIGHTon 03-19-2022 [facility] XR FOOT GENERAL 3V AP/LAT/OB L RIGHTon 02-18-2022 [facility] XR FOOT GENERAL 3V AP/LAT/OB L RIGHTon 01-28-2022 [facility] No Panel Informationon 10-07 Prostate Specific Antigen Total 0.22 ng/mL 0.0-4.0 [facility] Work Phone: Comment on above: This test was perfor med using the TPSA assay method for [employer] chemistry system. Values obtained with differentassay methods cannot be used interchangably.When changing PSA assays in the course of monitoring apatient, additional sequential testing should be carriedout to confirm baseline values. Karen 09-04-2021 TONY Telephone (AGCARDPOB ) OSWALDO CORELY ([id number]) 1940 M Date Time Provider Department 09/04/21 BELA MANZANO AGCARDPOB During your visit today, we recorded the following information about you: Rosalie Latif LPN 09/04/2021 10:44 AM Signed Clearance form received from [facility], [facility]. Form placed in Dr. Manzano's door box. Rosalie Latif LPN Allergies As of Date: 09/04/2021 Noted Allergy Reaction IMDUR (ISOSORBIDE MONONITRATE) 03/14/2015 4 - Hives Comments: Black out and dizziness Date Reviewed: 07/19/2021 Reviewed by: Durga Rowan Ma - Fully Assessed Reason for Visit: Cardiac Clearance [6885] Prescriptions as of 09/04/2021 - atorvastatin (LIPITOR) 20 mg tablet TAKE 1 TABLET BY MOUTH EVERY DAY - LORazepam (ATIVAN) 1 mg tablet Take 1 tablet by mouth three times daily for 90 days. - gabapentin (NEURONTIN) 100 mg capsule Take 1 capsule by mouth three times daily for 90 days. - budesonide-formoterol (SYMBICORT) 160-4.5 mcg/actuation inhaler Inhale 2 Puffs as instructed twice daily. - clopidogrel (PLAVIX) 75 mg tablet Take 1 tablet by mouth once daily. - tamsulosin (FLOMAX) 0.4 mg Take 0.4 mg by mouth once daily. - predniSONE (DELTASONE) 10 mg tablet Take 10 mg by mouth once daily. - guaiFENesin (MUCINEX) 600 mg 12 hr tablet Take 2 tablets by mouth twice daily. - nitroglycerin sublingual (NITROSTAT) 0.4 mg SL tablet Dissolve 1 tablet under the tongue every 5 minutes as needed. - DULoxetine (CYMBALTA) 30 mg capsule 1 capsule once daily. - ondansetron (ZOFRAN) 4 mg tablet 1 tablet as needed. - traMADol (ULTRAM) 50 mg tablet Take 50 mg by mouth every 6 hours as needed. - aspirin, enteric coated (ASPIRIN, ENTERIC COATED) 81 mg EC tablet Take 81 mg by mouth once daily. - DULERA 200-5 mcg/actuation inhaler Take 2 Puffs by mouth twice daily. - tiotropium (SPIRIVA WITH HANDIHALER) 18 mcg inhalation capsule Inhale 1 capsule as instructed once daily. Use with handihaler. - albuterol HFA (PROAIR HFA) 90 mcg/actuation inhaler Inhale 2 Puffs as instructed every 4 hours as needed for Wheezing/Shortness of Breath. Problem List As Of Date 09/04/2021 Noted Resolved Hyperlipidemia, Mixed [E78.2] 09/27/2009 Prostate cancer (HCC) [C61] 01/31/2015 ASCVD (arteriosclerotic cardiovascular disease)*11/20/2016 09/05/2019 Hypertrophy of prostate with urinary obstructio*11/20/2016 Chronic obstructive pulmonary disease (HCC) [J4*11/20/2016 Essential hypertension [I10] 11/20/2016 Anxiety [F41.9] 04/01/2017 Abdominal aortic aneurysm (AAA) without rupture*11/19/2018 Coronary artery disease involving [place] acuña*03/18/2019 S/P coronary artery stent placement, status pos*03/18/2019 S/P CABG x 3 [Z95.1] 03/18/2019 Squamous carcinoma of lung, 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.92] 11/29/2020 Encounter Status:Closed by ROSALIE LATIF on 09/04/21 Normal [facility] CT CHEST W IVCONon 2 [facility] XR Chest PA and Lateralon IMPRESSION: Improving bilateral airspace disease and hydropneumothorax of the left hemithorax. Small amount of extra ventilatory air with air-fluid level noted at the left lung base anterolaterally measuring less than 3 cm in sagittal length. Neonatal Pediatric Nurse: [facility] Transcribe Date/Time: Oct 04 2020 8:56P Dictated by : ZEN ALCARAZ MD This examination was interpreted and the report reviewed and electronically signed by: ZEN ALCARAZ MD on Oct 04 2020 9:04PM [facility] DIVISION OF RADIOLOGY * * *Final Report* * * DATE OF EXAM: Oct 04 2020 12:31PM WOX [id number] - XR CHEST 2V FRONTAL/LAT / PROCEDURE REASON: Rib pain on left side * * * * Physician Interpretation * * * * EXAMINATION: CHEST RADIOGRAPH (2 VIEW FRONTAL & LATERAL) CLINICAL HISTORY: Rib pain on left side MQ: XC2_6 EXAM DATE/TIME: 10/04/2020 12:31 PM COMPARISON: Comparison is made to prior outside chest radiograph from 01/28/2020 and a 2 view chest from 03/12/2015. Comparison is also made to prior CT chest dated 08/07/2020 RESULT: Lines, tubes, and devices: None. Lungs and pleura: Diffuse and bilateral chronic interstitial lung changes with centrilobular emphysema and scattered areas of fibrotic scarring again noted. Slight improvement in the tree-in-bud opacities within the right mid and right lower lobe. 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 Likewise, the extra ventilatory air within the anterior chest has significantly diminished. Cardiomediastinal silhouette: The cardiac, mediastinal and hilar shadows are unchanged. Other: The bony structures are intact DIVISION OF RADIOLOGY Provider, Shara Tse - 10/04/2020 * * *Final Report* * * DATE OF EXAM: Oct 04 2020 12:31PM WOX [id number] - XR CHEST 2V FRONTAL/LAT / PROCEDURE REASON: Rib pain on left side * * * * Physician Interpretation * * * * EXAMINATION: CHEST RADIOGRAPH (2 VIEW FRONTAL & LATERAL) CLINICAL HISTORY: Rib pain on left side MQ: XC2_6 EXAM DATE/TIME: 10/04/2020 12:31 PM COMPARISON: Comparison is made to prior outside chest radiograph from 01/28/2020 and a 2 view chest from 03/12/2015. Comparison is also made to prior CT chest dated 08/07/2020 RESULT: Lines, tubes, and devices: None. Lungs and pleura: Diffuse and bilateral chronic interstitial lung changes with centrilobular emphysema and scattered areas of fibrotic scarring again noted. Slight improvement in the tree-in-bud opacities within the right mid and right lower lobe. 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 Likewise, the extra ventilatory air within the anterior chest has significantly diminished. Cardiomediastinal silhouette: The cardiac, mediastinal and hilar shadows are unchanged. Other: The bony structures are intact IMPRESSION IMPRESSION: Improving bilateral airspace disease and hydropneumothorax of the left hemithorax. Small amount of extra ventilatory air with air-fluid level noted at the left lung base anterolaterally measuring less than 3 cm in sagittal length. Neonatal Pediatric Nurse: [facility] Transcribe Date/Time: Oct 04 2020 8:56P Dictated by : ZEN ALCARAZ MD This examination was interpreted and the report reviewed and electronically signed by: ZEN ALCARAZ MD on Oct 04 2020 9:04PM EST [facility] Radiology Study observation (narrative) [facility] XR Chest PA and LateralOrder ed By: [facility] Provider on 10-04-2020 [facility] Basic Metabolic Panelon -0 Calcium [Mass/Vol] 9.0 mg/dL Normal 8.4-10.4 [facility] Comment on above: Performed By: #### B MP3, HEMDF #### [facility] [employer] [address] [address] Anion gap [Moles/Vol] 8 Normal [facility] Comment on above: Performed By: #### B MP3, HEMDF #### [facility] [employer] [facility] [address] [place], [place] CO2 [Moles/Vol] 23 mmol/L Normal 22-30 [facility] Comment on above: Performed By: #### B MP3, HEMDF #### [facility] [employer] [facility] [address] [place], [place] Creatinine [Mass/Vol] 0.65 mg/dL Normal 0.52-1.25 [facility] Comment on above: Performed By: #### B MP3, HEMDF #### [place] [address] [address] [place], [place] GFR/1.73 sq M predicted among blacks MDRD (S/P/Bld) [Vol rate/Area] mL/min/{1.73_m2} Normal >60 [facility] Comment on above: Performed By: #### B MP3, HEMDF #### [facility] [address] [place], [place] GFR/1.73 sq M predicted among non-blacks MDRD (S/P/Bld) [Vol rate/Area] mL/min/{1.73_m2} Normal >60 [facility] Comment on above: Result Comment: KDIG O guidelines provide the following GFR categories: Stage GFR(ml/min/1.73 m2) Terms G1 >=90 Normal or high G2 60-89 Mildly decreased* G3a 45-59 Mildly to moderately decreased G3b 30-44 Moderately to severely decreased G4 15-29 Severely decreased G5 <15 Kidney failure *Relative to young adult level. In the absence of evidence of kidney damage, neither GFR category G1 nor G2 fulfill the criteria for CKD. The CKD-EPI equation is validated in individuals 18 years of age and older. Currently the best equation for estimating glomerular filtration rate (GFR) from serum creatinine in children is the Bedside Vasquez equation. It is less accurate in patients with extremes of muscle mass, restriction of dietary protein, ingestion of creatine, extra-renal metabolism of creatinine, or treatment with medications that affect renal tubular creatinine secretion. Performed By: #### B MP3, HEMDF #### [facility] [address] [place], [place] Glucose [Mass/Vol] 142 mg/dL High 70-100 [facility] Comment on above: Performed By: #### B MP3, HEMDF #### [facility] [address] [place], [place] Urea nitrogen [Mass/Vol] 16 mg/dL Normal 7-20 [facility] Comment on above: Performed By: #### B MP3, HEMDF #### [facility] [address] [place], [place] Chloride [Moles/Vol] 110 mmol/L High 98-107 [facility] Comment on above: Performed By: #### B MP3, HEMDF #### [facility] [address], [place] Potassium [Moles/Vol] 4.7 mmol/L Normal 3.5-5.1 [facility] Comment on above: Performed By: #### Sana MP3, HEMDF #### [facility] [address] [place], [place] Sodium [Moles/Vol] 141 mmol/L Normal 135-145 [facility] Comment on above: Performed By: #### B MP3, HEMDF #### [facility] [address] [place], [place] Anion gap [Moles/Vol] 8 mmol/L [facility], [place] Calcium [Mass/Vol] 9.0 mg/dL 8.4 - 10. 4 mg/dL [facility], [place] Chloride [Moles/Vol] 110 mmol/L High 98 - 10 7 mmol/L [facility] CO2 [Moles/Vol] 23 mmol/L 22 - 30 mmol/L [facility] Creatinine [Mass/Vol] 0.65 mg/dL 0.52 - 1.25 mg/dL [facility], [place] EGFR IF NonAfrican [place]isian >90.0 >60 mL/min [place], [place] Comment on above: KDIGO guidelines pro vide the following GFR categories: Stage GFR(ml/min/1.73 m2) Terms G1 >=90 Normal or high G2 60-89 Mildly decreased* G3a 45-59 Mildly to moderately decreased G3b 30-44 Moderately to severely decreased G4 15-29 Severely decreased G5 <15 Kidney failure *Relative to young adult level. In the absence of evidence of kidney damage, neither GFR category G1 nor G2 fulfill the criteria for CKD. The CKD-EPI equation is validated in individuals 18 years of age and older. Currently the best equation for estimating glomerular filtration rate (GFR) from serum creatinine in children is the Bedside Vasquez equation. It is less accurate in patients with extremes of muscle mass, restriction of dietary protein, ingestion of creatine, extra-renal metabolism of creatinine, or treatment with medications that affect renal tubular creatinine secretion. GFR/1.73 sq M predicted among blacks MDRD (S/P/Bld) [Vol rate/Area] mL/min/{1.73_m2} >60 mL/min [place], [place] Glucose [Mass/Vol] 142 mg/dL High 70 - 100 mg/dL [place] Interpretation and review of laboratory results Abnormal [place] Potassium [Moles/Vol] 4.7 mmol/L 3.5 - 5.1 mmol/L [place] Sodium [Moles/Vol] 141 mmol/L 135 - 145 mmol/L [place] Urea nitrogen [Mass/Vol] 16 mg/dL 7 - 20 mg/dL [place] Test Performed by [facility], [address] [place] [id number] [place], [place] CBC Auto Differentialon Absolute Baso # 0.0 10*3/uL 0 - 0.2 10*3/uL [place] Absolute Neut # 4.4 10*3/uL 1.8 - 7 10*3/uL [place] Basophils/100 WBC (Bld) 0.1 % 0 - 2 % [place] Eosinophils (Bld) [#/Vol] 0.0 10*3/uL 0 - 0.5 10*3/uL [place] Eosinophils/100 WBC (Bld) 0.0 % Low 1 - 6 % [place] Erythrocyte distribution width (RBC) [Ratio] 16.9 % High 11.5 - 14.5 % [place] Granulocytes/100 WBC (Bld) 92.5 % High 40 - 80 % [place] Hematocrit (Bld) [Volume fraction] 38.9 % Low 40 - 52 % [place] Hemoglobin (Bld) [Mass/Vol] 12.5 g/dL Low 13 - 18 g/dL [place] Interpretation and review of laboratory results Abnormal [place] Lymphocytes (Bld) [#/Vol] 0.3 10*3/uL Low 1 - 4.3 10*3/uL [place] Lymphocytes/100 WBC (Bld) 5.9 % Low 20 - 40 % [place] MCH (RBC) [Entitic mass] 28.0 pg 26 - 34 pg [place] MCHC (RBC) [Mass/Vol] 32.0 % 32 - 36 % [place] MCV (RBC) [Entitic vol] 87.5 fL 80 - 98 fL [place] Monocytes (Bld) [#/Vol] 0.1 10*3/uL 0 - 0.8 10*3/uL [place] Monocytes/100 WBC (Bld) 1.5 % Low 2 - 10 % [place] Platelet mean volume (Bld) [Entitic vol] 6.8 fL Low 7.4 - 10.4 fL [place] Platelets (Bld) [#/Vol] 224 10*3/uL 140 - 440 10*3/uL [place] RBC (Bld) [#/Vol] 4.44 10*6/uL 4.4 - 5.9 10*6/uL [place] WBC (Bld) [#/Vol] 4.7 10*3/uL 3.6 - 10.7 10*3/uL [place] Test Performed by [facility], [address] [place] [address] [place], [place] CR Chest Portableon 04-07-19 21 CR Chest Portable Patient Name: OSWALDO CORLEY Diagnostic Radiology ACCESSION EXAM DATE/TIME PROCEDURE ORDERING PROVIDER [id number] 04/07/2020 07:34 EST CR Chest Portable STALIN PARSONS CPT code 60159 Reason For Exam (CR Chest Portable) small ptx Report CHEST - PORTABLE: CLINICAL INDICATION: Small pneumothorax TECHNIQUE: Portable AP COMPARISON: CT chest 04/06/2020, chest radiograph 03/03/2020 FINDINGS/IMPRESSION: Lines, tubes, and devices: None Cardiomediastinal silhouette: Heart size is stable. 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 Patchy irregular opacities at the left lung base likely reflect atelectasis/scarring with some component of infection also possible. There is likely a background of chronic lung changes/scarring. There may be a small left-sided pleural effusion as well as a trace right-sided pleural effusion versus pleural thickening. Osseous structures/soft tissues: Osseous structures appear unchanged. No soft tissue abnormality is detected. Report Dictated on Final Dictated: 04/07/2020 7:10 am Dictating Physician: MD GUDINO VLADIMIR Signed Date and Time: 04/07/2020 7:15 am Signed by: MD GUDINO VLADIMIR Transcribed Date and Time: 04/07/2020 7:10 Normal [facility] Hemogram w/ Autodiffon 04-07 Abs Baso Cnt 0.0 10*3/uL Normal 0.0-0.2 [facility] Comment on above: Performed By: #### B MP3, HEMDF #### [facility] [address] [place] [address] Abs Neutrophile Cnt 4.4 10*3/uL Normal 1.8-7.0 [facility] Comment on above: Performed By: #### B MP3, HEMDF #### [facility] [address] [place] [address] Basophils/100 WBC (Bld) 0.1 % Normal 0.0-2.0 [facility] Comment on above: Performed By: #### B MP3, HEMDF #### [facility] [address] [place], [place] Eosinophils (Bld) [#/Vol] 0.0 10*3/uL Normal 0.0-0.5 [facility] Comment on above: Performed By: #### B MP3, HEMDF #### [facility] [address] [place], [place] Eosinophils/100 WBC (Bld) 0.0 % Low 1.0-6.0 [facility] Comment on above: Performed By: #### B MP3, HEMDF #### [place] [address], [place] Erythrocyte distribution width (RBC) [Ratio] 16.9 % High 11.5-14.5 [facility] Comment on above: Performed By: #### B MP3, HEMDF #### [place] [address], [place] Granulocytes/100 WBC (Bld) 92.5 % High 40.0-80.0 [facility] Comment on above: Performed By: #### B MP3, HEMDF #### [place] [address] [place], [place] Hematocrit (Bld) [Volume fraction] 38.9 % Low 40.0-52.0 [facility] Comment on above: Performed By: #### B MP3, HEMDF #### [facility] [address] [place], [place] Hemoglobin (Bld) [Mass/Vol] 12.5 g/dL Low 13.0-18.0 [facility] Comment on above: Performed By: #### B MP3, HEMDF #### [facility] [address] [place], [place] Lymphocytes (Bld) [#/Vol] 0.3 10*3/uL Low 1.0-4.3 [facility] Comment on above: Performed By: #### B MP3, HEMDF #### [facility] [address] [place], [place] Lymphocytes/100 WBC (Bld) 5.9 % Low 20.0-40.0 [facility] Comment on above: Performed By: #### B MP3, HEMDF #### [place] [address], [place] MCH (RBC) [Entitic mass] 28.0 pg Normal 26.0-34.0 [facility] Comment on above: Performed By: #### B MP3, HEMDF #### [place] [address], [place] MCHC (RBC) [Mass/Vol] 32.0 % Normal 32.0-36.0 [facility] Comment on above: Performed By: #### B MP3, HEMDF #### [place] [address] [place], [place] MCV (RBC) [Entitic vol] 87.5 fL Normal 80.0-98.0 [facility] Comment on above: Performed By: #### B MP3, HEMDF #### [place] [address], [place] Monocytes (Bld) [#/Vol] 0.1 10*3/uL Normal 0.0-0.8 [facility] Comment on above: Performed By: #### B MP3, HEMDF #### [place] [address] [place], [place] Monocytes/100 WBC (Bld) 1.5 % Low 2.0-10.0 [facility] Comment on above: Performed By: #### B MP3, HEMDF #### [place] [address] [place], [place] Platelet mean volume (Bld) [Entitic vol] 6.8 fL Low 7.4-10.4 [facility] Comment on above: Performed By: #### B MP3, HEMDF #### [place] [address] [place], [place] Platelets (Bld) [#/Vol] 224 10*3/uL Normal 140-440 [facility] Comment on above: Performed By: #### B MP3, HEMDF #### [place] [address] [place] [address] RBC (Bld) [#/Vol] 4.44 10*6/uL Normal 4.40-5.90 [facility] Comment on above: Performed By: #### B MP3, HEMDF #### [facility] [address] [place] [address] WBC (Bld) [#/Vol] 4.7 10*3/uL Normal 3.6-10.7 [facility] Comment on above: Performed By: #### B MP3, HEMDF #### [facility] [address] [place] [address] XR CHEST PORTABLEon 04-07-19 [facility], [facility] Incoming Radiology Results From [facility] - 04/07/2020 7:34 AM EST Patient Name: OSWALDO CORLEY Diagnostic Radiology ACCESSION EXAM DATE/TIME PROCEDURE ORDERING PROVIDER [id number] 04/07/2020 07:34 EST CR Chest Portable STALIN PARSONS CPT code 37717 Reason For Exam (CR Chest Portable) small ptx Report CHEST - PORTABLE: CLINICAL INDICATION: Small pneumothorax TECHNIQUE: Portable AP COMPARISON: CT chest 04/06/2020, chest radiograph 03/03/2020 FINDINGS/IMPRESSION: Lines, tubes, and devices: None Cardiomediastinal silhouette: Heart size is stable. 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 Patchy irregular opacities at the left lung base likely reflect atelectasis/scarring with some component of infection also possible. There is likely a background of chronic lung changes/scarring. There may be a small left-sided pleural effusion as well as a trace right-sided pleural effusion versus pleural thickening. Osseous structures/soft tissues: Osseous structures appear unchanged. No soft tissue abnormality is detected. Report Dictated on --- Final --- Dictated: 04/07/2020 7:10 am Dictating Physician: MERMD BLEVINS VLADIMIR Signed Date and Time: 04/07/2020 7:15 am Signed by: MD GUDINO VLADIMIR Transcribed Date and Time: 04/07/2020 7:10 [place], [place] Patient Name: OSWALDO CORLEY Diagnostic Radiology ACCESSION EXAM DATE/TIME PROCEDURE ORDERING PROVIDER [id number] 04/07/2020 07:34 EST CR Chest Portable JOSIAH PARSONSS CPT code 43390 Reason For Exam (CR Chest Portable) small ptx Report CHEST - PORTABLE: CLINICAL INDICATION: Small pneumothorax TECHNIQUE: Portable AP COMPARISON: CT chest 04/06/2020, chest radiograph 03/03/2020 FINDINGS/IMPRESSION: Lines, tubes, and devices: None Cardiomediastinal silhouette: Heart size is stable. 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 Patchy irregular opacities at the left lung base likely reflect atelectasis/scarring with some component of infection also possible. There is likely a background of chronic lung changes/scarring. There may be a small left-sided pleural effusion as well as a trace right-sided pleural effusion versus pleural thickening. Osseous structures/soft tissues: Osseous structures appear unchanged. No soft tissue abnormality is detected. Report Dictated on --- Final --- Dictated: 04/07/2020 7:10 am Dictating Physician: MD GUDINO VLADIMIR Signed Date and Time: 04/07/2020 7:15 am Signed by: MD GUDINO VLADIMIR Transcribed Date and Time: 04/07/2020 7:10 [place], [place] Basic Metabolic Panelon 02-0 Anion gap [Moles/Vol] 5 Normal [facility] Comment on above: Performed By: #### H EMDF, BMP3 #### [address] [address] Calcium [Mass/Vol] 9.2 mg/dL Normal 8.4-10.4 [facility] Comment on above: Performed By: #### H EMDF, BMP3 #### [facility] [address] [place], [place] CO2 [Moles/Vol] 25 mmol/L Normal 22-30 [facility] Comment on above: Performed By: #### H EMDF, BMP3 #### [facility] [address] [place], [place] Glucose [Mass/Vol] 101 mg/dL High 70-100 [facility] Comment on above: Performed By: #### H EMDF, BMP3 #### [facility] [address] [place], [place] Urea nitrogen [Mass/Vol] 20 mg/dL Normal 7-20 [facility] Comment on above: Performed By: #### H EMDF, BMP3 #### [facility] [address], [place] Creatinine [Mass/Vol] 0.78 mg/dL Normal 0.52-1.25 [facility] Comment on above: Performed By: #### H EMDF, BMP3 #### [facility] [address] [place], [place] GFR/1.73 sq M predicted among blacks MDRD (S/P/Bld) [Vol rate/Area] mL/min/{1.73_m2} Normal >60 [facility] Comment on above: Performed By: #### H EMDF, BMP3 #### [facility] [address] [place], [place] GFR/1.73 sq M predicted among non-blacks MDRD (S/P/Bld) [Vol rate/Area] 86.6 mL/min/{1.73_m2} Normal >60 [facility] Comment on above: Result Comment: KDIG O guidelines provide the following GFR categories: Stage GFR(ml/min/1.73 m2) Terms G1 >=90 Normal or high G2 60-89 Mildly decreased* G3a 45-59 Mildly to moderately decreased G3b 30-44 Moderately to severely decreased G4 15-29 Severely decreased G5 <15 Kidney failure *Relative to young adult level. In the absence of evidence of kidney damage, neither GFR category G1 nor G2 fulfill the criteria for CKD. The CKD-EPI equation is validated in individuals 18 years of age and older. Currently the best equation for estimating glomerular filtration rate (GFR) from serum creatinine in children is the Bedside Vasquez equation. It is less accurate in patients with extremes of muscle mass, restriction of dietary protein, ingestion of creatine, extra-renal metabolism of creatinine, or treatment with medications that affect renal tubular creatinine secretion. Performed By: #### H THI RAPHAEL #### [address] Chloride [Moles/Vol] 108 mmol/L High 98-107 [facility] Comment on above: Performed By: #### H RENETTA RAPHAEL3 #### [address] Potassium [Moles/Vol] 4.1 mmol/L Normal 3.5-5.1 [facility] Comment on above: Performed By: #### H RENETTA RAPHAEL3 #### [address] Sodium [Moles/Vol] 138 mmol/L Normal 135-145 [facility] Comment on above: Performed By: #### H RENETTA RAPHAEL3 #### [address] Anion gap [Moles/Vol] 5 mmol/L [place] Calcium [Mass/Vol] 9.2 mg/dL 8.4 - 10. 4 mg/dL [place] Chloride [Moles/Vol] 108 mmol/L High 98 - 10 7 mmol/L [place] CO2 [Moles/Vol] 25 mmol/L 22 - 30 mmol/L [place] Creatinine [Mass/Vol] 0.78 mg/dL 0.52 - 1.25 mg/dL [place] EGFR IF NonAfrican [place] 86.6 mL/min >60 [place] Comment on above: KDIGO guidelines pro vide the following GFR categories: Stage GFR(ml/min/1.73 m2) Terms G1 >=90 Normal or high G2 60-89 Mildly decreased* G3a 45-59 Mildly to moderately decreased G3b 30-44 Moderately to severely decreased G4 15-29 Severely decreased G5 <15 Kidney failure *Relative to young adult level. In the absence of evidence of kidney damage, neither GFR category G1 nor G2 fulfill the criteria for CKD. The CKD-EPI equation is validated in individuals 18 years of age and older. Currently the best equation for estimating glomerular filtration rate (GFR) from serum creatinine in children is the Bedside Vasquez equation. It is less accurate in patients with extremes of muscle mass, restriction of dietary protein, ingestion of creatine, extra-renal metabolism of creatinine, or treatment with medications that affect renal tubular creatinine secretion. GFR/1.73 sq M predicted among blacks MDRD (S/P/Bld) [Vol rate/Area] mL/min/{1.73_m2} >60 mL/min [place] Glucose [Mass/Vol] 101 mg/dL High 70 - 100 mg/dL [place] Interpretation and review of laboratory results Abnormal [place] Potassium [Moles/Vol] 4.1 mmol/L 3.5 - 5.1 mmol/L [place] Sodium [Moles/Vol] 138 mmol/L 135 - 145 mmol/L [place] Urea nitrogen [Mass/Vol] 20 mg/dL 7 - 20 mg/dL [place] Test Performed by [facility], [address] [place] [id number] [place] CBC Auto Differentialon 0 Absolute Baso # 0.0 10*3/uL 0 - 0.2 10*3/uL [place] Absolute Neut # 3.5 10*3/uL 1.8 - 7 10*3/uL [place] Basophils/100 WBC (Bld) 0.5 % 0 - 2 % [place] Eosinophils (Bld) [#/Vol] 0.1 10*3/uL 0 - 0.5 10*3/uL [place] Eosinophils/100 WBC (Bld) 2.1 % 1 - 6 % [place] Erythrocyte distribution width (RBC) [Ratio] 17.0 % High 11.5 - 14.5 % [place] Granulocytes/100 WBC (Bld) 75.6 % 40 - 80 % [place] Hematocrit (Bld) [Volume fraction] 39.6 % Low 40 - 52 % [place] Hemoglobin (Bld) [Mass/Vol] 12.8 g/dL Low 13 - 18 g/dL [place] Interpretation and review of laboratory results Abnormal [place] Lymphocytes (Bld) [#/Vol] 0.6 10*3/uL Low 1 - 4.3 10*3/uL [place] Lymphocytes/100 WBC (Bld) 12.3 % Low 20 - 40 % [place] MCH (RBC) [Entitic mass] 28.2 pg 26 - 34 pg [place] MCHC (RBC) [Mass/Vol] 32.3 % 32 - 36 % [place] MCV (RBC) [Entitic vol] 87.5 fL 80 - 98 fL [place] Monocytes (Bld) [#/Vol] 0.4 10*3/uL 0 - 0.8 10*3/uL [place] Monocytes/100 WBC (Bld) 9.5 % 2 - 10 % [place] Platelet mean volume (Bld) [Entitic vol] 6.8 fL Low 7.4 - 10.4 fL [place] Platelets (Bld) [#/Vol] 211 10*3/uL 140 - 440 10*3/uL [place] RBC (Bld) [#/Vol] 4.53 10*6/uL 4.4 - 5.9 10*6/uL [place] WBC (Bld) [#/Vol] 4.7 10*3/uL 3.6 - 10.7 10*3/uL [place] Test Performed by [address] [address] [place] CTA Chest W WO (PE study)on 04-06-2020 Patient Name: OSWALDO CORLEY Computed Tomography ACCESSION EXAM DATE/TIME PROCEDURE ORDERING PROVIDER [id number] 04/06/2020 00:38 EST CTA Chest w/ + w/o [id number] -Jodee COHN CPT code 25437 Q9967 Reason For Exam (CTA Chest w/ + w/o Contrast) Pulmonary embolism; Male; No imaging to r/o PE in the last 24 hours; Pulmonary Embolism Rule-Out Criteria (PERC) score > 0; Revised [place] Score (RGS) not >= 11; No D-dimer result available; D-dimer likely unreliable due t...reason exceeds allotted space Report CT ANGIOGRAM OF THE CHEST(PULMONARY EMBOLISM PROTOCOL): INDICATION: Shortness of breath. COMPARISON: No previous studies are available for comparison. CTA of the chest was performed following the IV administration of 75 cc of Isovue-370. The contrast bolus was optimized for maximal opacification of the pulmonary vascular tree. Fine section CT images were obtained from the apices through the lung bases. The study was reviewed in the axial, sagittal and coronal planes. In addition a 3-D volume rendering was processed concurrently by the radiologist and reviewed on a separate workstation. The thyroid is normal in appearance. The thoracic soft tissues are grossly normal. There is no axillary lymphadenopathy. The contrast bolus injection is satisfactory. There are no filling defects within the pulmonary vascular tree to suggest the presence of a pulmonary embolus. Evaluation of the pulmonary parenchyma demonstrates a large left-sided bulla and chronic interstitial changes bilaterally with mild left-sided pleural thickening and scattered pleural calcification. Nodular scarring is seen involving the right lateral lung base. There are no effusions or infiltrates. Evaluation of the mediastinum demonstrates no evidence of mediastinal mass or lymphadenopathy. The heart is normal in size. A limited review of the upper abdomen demonstrates no gross abnormality. IMPRESSION: The CTA of the chest is negative for pulmonary embolus, aortic aneurysm or aortic dissection. Chronic interstitial changes. Large left-sided bulla. Computed Tomography Report Report Dictated on Workstation: [id number] --- Final --- Dictated: 04/06/2020 1:16 am Dictating Physician: DO TONG ALFRED Signed Date and Time: 04/06/2020 1:22 am Signed by: DO TONG ALFRED Transcribed Date and Time: 04/06/2020 1:16 [facility] [place] [facility]ier Incoming Radiology Results From [facility] - 04/06/2020 1:23 AM EST Patient Name[id number] Computed Tomography ACCESSION EXAM DATE/TIME PROCEDURE ORDERING PROVIDER [id number] 04/06/2020 00:38 EST CTA Chest w/ + w/o [id number] -Jodee COHN CPT code 57851 Q9967 Reason For Exam (CTA Chest w/ + w/o Contrast) Pulmonary embolism; Male; No imaging to r/o PE in the last 24 hours; Pulmonary Embolism Rule-Out Criteria (PERC) score > 0; Revised [place] Score (RGS) not >= 11; No D-dimer result available; D-dimer likely unreliable due t...reason exceeds allotted space Report CT ANGIOGRAM OF THE CHEST(PULMONARY EMBOLISM PROTOCOL): INDICATION: Shortness of breath. COMPARISON: No previous studies are available for comparison. CTA of the chest was performed following the IV administration of 75 cc of Isovue-370. The contrast bolus was optimized for maximal opacification of the pulmonary vascular tree. Fine section CT images were obtained from the apices through the lung bases. The study was reviewed in the axial, sagittal and coronal planes. In addition a 3-D volume rendering was processed concurrently by the radiologist and reviewed on a separate workstation. The thyroid is normal in appearance. The thoracic soft tissues are grossly normal. There is no axillary lymphadenopathy. The contrast bolus injection is satisfactory. There are no filling defects within the pulmonary vascular tree to suggest the presence of a pulmonary embolus. Evaluation of the pulmonary parenchyma demonstrates a large left-sided bulla and chronic interstitial changes bilaterally with mild left-sided pleural thickening and scattered pleural calcification. Nodular scarring is seen involving the right lateral lung base. There are no effusions or infiltrates. Evaluation of the mediastinum demonstrates no evidence of mediastinal mass or lymphadenopathy. The heart is normal in size. A limited review of the upper abdomen demonstrates no gross abnormality. IMPRESSION: The CTA of the chest is negative for pulmonary embolus, aortic aneurysm or aortic dissection. Chronic interstitial changes. Large left-sided bulla. Computed Tomography Report Report Dictated on Workstation: [facility] --- Final --- Dictated: 04/06/2020 1:16 am Dictating Physician: DO TONG ALFRED Signed Date and Time: 04/06/2020 1:22 am Signed by: DO TONG ALFRED Transcribed Date and Time: 04/06/2020 1:16 [place], [place] CTA Chest w/ + w/o Contrasto n 04-06-2020 CTA Chest w/ + w/o Contrast Patient [facility]: [id number] Computed Tomography ACCESSION EXAM DATE/TIME PROCEDURE ORDERING PROVIDER [id number] 04/06/2020 00:38 EST CTA Chest w/ + w/o [id number] -SUKI, Contrast YINA CPT code 11045 Q9967 Reason For Exam (CTA Chest w/ + w/o Contrast) Pulmonary embolism; Male; No imaging to r/o PE in the last 24 hours; Pulmonary Embolism Rule-Out Criteria (PERC) score > 0; Revised [place] Score (RGS) not >= 11; No D-dimer result available; D-dimer likely unreliable due t...reason exceeds allotted space Report CT ANGIOGRAM OF THE CHEST(PULMONARY EMBOLISM PROTOCOL): INDICATION: Shortness of breath. COMPARISON: No previous studies are available for comparison. CTA of the chest was performed following the IV administration of 75 cc of Isovue-370. The contrast bolus was optimized for maximal opacification of the pulmonary vascular tree. Fine section CT images were obtained from the apices through the lung bases. The study was reviewed in the axial, sagittal and coronal planes. In addition a 3-D volume rendering was processed concurrently by the radiologist and reviewed on a separate workstation. The thyroid is normal in appearance. The thoracic soft tissues are grossly normal. There is no axillary lymphadenopathy. The contrast bolus injection is satisfactory. There are no filling defects within the pulmonary vascular tree to suggest the presence of a pulmonary embolus. Evaluation of the pulmonary parenchyma demonstrates a large left-sided bulla and chronic interstitial changes bilaterally with mild left-sided pleural thickening and scattered pleural calcification. Nodular scarring is seen involving the right lateral lung base. There are no effusions or infiltrates. Evaluation of the mediastinum demonstrates no evidence of mediastinal mass or lymphadenopathy. The heart is normal in size. A limited review of the upper abdomen demonstrates no gross abnormality. IMPRESSION: The CTA of the chest is negative for pulmonary embolus, aortic aneurysm or aortic dissection. Chronic interstitial changes. Large left-sided bulla. Computed Tomography Report Report Dictated on Workstation: [id number] Final Dictated: 04/06/2020 1:16 am Dictating Physician: DO TONG ALFRED Signed Date and Time: 04/06/2020 1:22 am Signed by: DO TONG ALFRED Transcribed Date and Time: 04/06/2020 1:16 Normal [facility] EKG 12 Lead - Chest [place] 0 04-06-2020 [place], [facility] Incoming Cardiology Results From [facility] - 04/06/2020 4:36 PM EST [facility] Test Date: 2020-04-05 Pat Name: Oswaldo Corley Department: [facility] Room: 1539 Gender: M Tray Drier: MARGOT : 1940 Requested By: YINA COHN Order Number: [id number] Reading MD: Trevon Casillas Measurements Intervals [place] Rate: 93 P: 71 WY: 162 QRS: 30 QRSD: 82 T: 23 QT: 327 QTc: 407 Interpretive Statements Sinus rhythm Electronically Signed On 04-06-2020 16:34:59 EST by Trevon Casillas [facility] Test Date: 2020-04-05 Pat Name: Oswaldo Corley Department: [facility] Room: 1539 Gender: M Tray Drier: MARGOT : 1940 Requested By: YINA COHN Order Number: [id number] Reading MD: Trevon Casillas Measurements Intervals [place] Rate: 93 P: 71 WY: 162 QRS: 30 QRSD: 82 T: 23 QT: 327 QTc: 407 Interpretive Statements Sinus rhythm Electronically Signed On 04-06-2020 16:34:59 EST by Trevon MohanTherapeutic Monitoring Systems Inc[employer], [place] Hemogram w/ Autodiffon 04-06 Abs Baso Cnt 0.0 10*3/uL Normal 0.0-0.2 [facility] Comment on above: Performed By: #### H EMDF, BMP3 #### [address] [address] Abs Neutrophile Cnt 3.5 10*3/uL Normal 1.8-7.0 [facility] Comment on above: Performed By: #### H IJEOMA BMP3 #### [address] Basophils/100 WBC (Bld) 0.5 % Normal 0.0-2.0 [facility] Comment on above: Performed By: #### H IJEOMA BMP3 #### [address] Eosinophils (Bld) [#/Vol] 0.1 10*3/uL Normal 0.0-0.5 [facility] Comment on above: Performed By: #### H IJEOMA BMP3 #### [address] Eosinophils/100 WBC (Bld) 2.1 % Normal 1.0-6.0 [facility] Comment on above: Performed By: #### H IJEOMA BMP3 #### [address] Erythrocyte distribution width (RBC) [Ratio] 17.0 % High 11.5-14.5 [facility] Comment on above: Performed By: #### H IJEOMA BMP3 #### [address] Granulocytes/100 WBC (Bld) 75.6 % Normal 40.0-80.0 [facility] Comment on above: Performed By: #### H IJEOMA BMP3 #### [place] [address] [address] [place], [place] Hematocrit (Bld) [Volume fraction] 39.6 % Low 40.0-52.0 [facility] Comment on above: Performed By: #### H IJEOMA BMP3 #### [address] Hemoglobin (Bld) [Mass/Vol] 12.8 g/dL Low 13.0-18.0 [facility] Comment on above: Performed By: #### H IJEOMA BMP3 #### [place] [place] [address] Lymphocytes (Bld) [#/Vol] 0.6 10*3/uL Low 1.0-4.3 [facility] Comment on above: Performed By: #### H IJEOMA BMP3 #### [facility] [address] [place] [address] Lymphocytes/100 WBC (Bld) 12.3 % Low 20.0-40.0 [facility] Comment on above: Performed By: #### H IJOEMA BMP3 #### [address] [place] [address] [place] [address] MCH (RBC) [Entitic mass] 28.2 pg Normal 26.0-34.0 [facility] Comment on above: Performed By: #### H IJEOMA BMP3 #### [address] [address] MCHC (RBC) [Mass/Vol] 32.3 % Normal 32.0-36.0 [facility] Comment on above: Performed By: #### H IJEOMA BMP3 #### [address] MCV (RBC) [Entitic vol] 87.5 fL Normal 80.0-98.0 [facility] Comment on above: Performed By: #### H IJEOMA, BMP3 #### [place] [address] [address] [place], [place] Monocytes (Bld) [#/Vol] 0.4 10*3/uL Normal 0.0-0.8 [facility] Comment on above: Performed By: #### H EMDYuri, BMP3 #### [place] [address] [place] [address] Monocytes/100 WBC (Bld) 9.5 % Normal 2.0-10.0 [facility] Comment on above: Performed By: #### H IJEOMA, BMP3 #### [place] [address] [place] [address] Platelet mean volume (Bld) [Entitic vol] 6.8 fL Low 7.4-10.4 [facility] Comment on above: Performed By: #### H EMDF, BMP3 #### [facility] [address] [place] [address] Platelets (Bld) [#/Vol] 211 10*3/uL Normal 140-440 [facility] Comment on above: Performed By: #### H EMDF, BMP3 #### [facility] [address] [place] [address] RBC (Bld) [#/Vol] 4.53 10*6/uL Normal 4.40-5.90 [facility] Comment on above: Performed By: #### H EMDF, BMP3 #### [facility] [address] [place] [address] WBC (Bld) [#/Vol] 4.7 10*3/uL Normal 3.6-10.7 [facility] Comment on above: Performed By: #### H EMDF, BMP3 #### [facility] [address] [place] [address] [address] CHEST WO CONTRASTon 04-05 Patient Name: OSWALDO CORLEY Computed Tomography ACCESSION EXAM DATE/TIME PROCEDURE ORDERING PROVIDER [id number] 04/05/2020 21:[address] Thorax w/o Contrast [id number] -YINA COHN CPT code 79720 Reason For Exam (CT Thorax w/o Contrast) chest pain Report CT CHEST WITHOUT IV CONTRAST CLINICAL INDICATION: chest pain TECHNIQUE: CT scan of the chest without IV contrast. Multiplanar reformations. COMPARISON: None. FINDINGS: Mediastinal evaluation limited due to lack of IV contrast. The lungs show probable chronic interstitial or fibrotic change and scarring scattered bilaterally. Mild and partially calcified pleural thickening on the left. Large bulla noted along the left anterolateral pleural margin, measuring approximately 5.5 x 13 cm in maximal cross-sectional diameter in left lateral lung base, and extending approximately 18 cm in craniocaudal dimension to the left superolateral lung. Somewhat ill-defined nodularity noted along the medial margins in both the left upper and lower lobes, suggesting scarring. No discrete parenchymal mass, focal consolidation or pleural effusion. No apparent pneumothorax. Diffuse coronary artery calcifications and postsurgical change compatible with status post CABG. No apparent aneurysm or pseudoaneurysm. No significant lymph node enlargement or axillary adenopathy. Visualized upper abdomen grossly unremarkable. IMPRESSION: 1. Probable chronic interstitial and fibrotic change and/or scarring scattered bilaterally. No acute consolidation. 2. Large bulla noted along the anterolateral pleural margin of left lung, extending from upper lobe to inferolateral lung base, with some probable parenchymal thickening/scarring along its medial margin. Follow-up as indicated. Computed Tomography Report 3. Status post post CABG. Report Dictated on Workstation: LON --- Final --- Dictated: 04/05/2020 9:33 pm Dictating Physician: MD ARIZA WENDELL Signed Date and Time: 04/05/2020 9:46 pm Signed by: MD ARIZA WENDELL Transcribed Date and Time: 04/05/2020 9:33 [place], [place], [facility] Incoming Radiology Results From [facility] - 04/05/2020 9:47 PM EST Patient Name: OSWALDO CORLEY Computed Tomography ACCESSION EXAM DATE/TIME PROCEDURE ORDERING PROVIDER [id number] 04/05/2020 21:[address] Thorax w/o Contrast [id number] -YINA COHN CPT code 05110 Reason For Exam (CT Thorax w/o Contrast) chest pain Report CT CHEST WITHOUT IV CONTRAST CLINICAL INDICATION: chest pain TECHNIQUE: CT scan of the chest without IV contrast. Multiplanar reformations. COMPARISON: None. FINDINGS: Mediastinal evaluation limited due to lack of IV contrast. The lungs show probable chronic interstitial or fibrotic change and scarring scattered bilaterally. Mild and partially calcified pleural thickening on the left. Large bulla noted along the left anterolateral pleural margin, measuring approximately 5.5 x 13 cm in maximal cross-sectional diameter in left lateral lung base, and extending approximately 18 cm in craniocaudal dimension to the left superolateral lung. Somewhat ill-defined nodularity noted along the medial margins in both the left upper and lower lobes, suggesting scarring. No discrete parenchymal mass, focal consolidation or pleural effusion. No apparent pneumothorax. Diffuse coronary artery calcifications and postsurgical change compatible with status post CABG. No apparent aneurysm or pseudoaneurysm. No significant lymph node enlargement or axillary adenopathy. Visualized upper abdomen grossly unremarkable. IMPRESSION: 1. Probable chronic interstitial and fibrotic change and/or scarring scattered bilaterally. No acute consolidation. 2. Large bulla noted along the anterolateral pleural margin of left lung, extending from upper lobe to inferolateral lung base, with some probable parenchymal thickening/scarring along its medial margin. Follow-up as indicated. Computed Tomography Report 3. Status post post CABG. Report Dictated on Workstation: LON --- Final --- Dictated: 04/05/2020 9:33 pm Dictating Physician: MD ARIZA WENDELL Signed Date and Time: 04/05/2020 9:46 pm Signed by: MD ARIZA WENDELL Transcribed Date and Time: 04/05/2020 9:33 [place], [place] CT Chest w/o Contraston CT Chest w/o Contrast Patient Name: OSWALDO TORRES Computed Tomography ACCESSION EXAM DATE/TIME PROCEDURE ORDERING PROVIDER [id number] 04/05/2020 21:[address] Thorax w/o Contrast [id number] -YINA COHN CPT code 93657 Reason For Exam (CT Thorax w/o Contrast) chest pain Report CT CHEST WITHOUT IV CONTRAST CLINICAL INDICATION: chest pain TECHNIQUE: CT scan of the chest without IV contrast. Multiplanar reformations. COMPARISON: None. FINDINGS: Mediastinal evaluation limited due to lack of IV contrast. The lungs show probable chronic interstitial or fibrotic change and scarring scattered bilaterally. Mild and partially calcified pleural thickening on the left. Large bulla noted along the left anterolateral pleural margin, measuring approximately 5.5 x 13 cm in maximal cross-sectional diameter in left lateral lung base, and extending approximately 18 cm in craniocaudal dimension to the left superolateral lung. Somewhat ill-defined nodularity noted along the medial margins in both the left upper and lower lobes, suggesting scarring. No discrete parenchymal mass, focal consolidation or pleural effusion. No apparent pneumothorax. Diffuse coronary artery calcifications and postsurgical change compatible with status post CABG. No apparent aneurysm or pseudoaneurysm. No significant lymph node enlargement or axillary adenopathy. Visualized upper abdomen grossly unremarkable. IMPRESSION: 1. Probable chronic interstitial and fibrotic change and/or scarring scattered bilaterally. No acute consolidation. 2. Large bulla noted along the anterolateral pleural margin of left lung, extending from upper lobe to inferolateral lung base, with some probable parenchymal thickening/scarring along its medial margin. Follow-up as indicated. Computed Tomography Report 3. Status post post CABG. Report Dictated on Workstation: LON Final Dictated: 04/05/2020 9:33 pm Dictating Physician: MD ARIZA WENDELL Signed Date and Time: 04/05/2020 9:46 pm Signed by: MD ARIZA WENDELL Transcribed Date and Time: 04/05/2020 9:33 Normal [facility] ED Provider Noteon ED Provider Note Emergency Department Encounter [facility] EMERGENCY DEPT Patient: Oswaldo Corley : 1940 Date of Evaluation: 04/05/2020 ED Supervising Physician: Eva Call MD I independently examined and evaluated Oswaldo Corley. In brief, Oswaldo Corley is a 79 y.o. male patient with a past medical history significant for aortic aneurysm, coronary artery disease, respiratory failure, chronic obstructive pulmonary disease, hyperlipidemia, hypertension, recently status post a left thoracostomy for a pneumothorax with lung nodule resection that presents to the emergency department for evaluation for worsening shortness of breath. Patient states has been doing well since discharge from the hospital recently pacer having worsening shortness of breath yesterday and today went to an outside hospital Emergency Room where he was evaluated and instructed to come to the emergency department here for further evaluation and management. The patient however denies any fevers, chills, chest pain, palpitations, diaphoresis, abdominal pain or nausea and vomiting. Focused exam: [id number] in no acute distress. Alert and oriented X 3. Lungs clear to auscultation life with diminished breath sounds in the left especially in the lower lung rebolledo with no wheezes or crackles appreciated. Heart rate and rhythm regular with no murmurs. Abdomen soft nontender nondistended with positive bowel sounds. No edema appreciated on the lower extremities bilaterally. Brief ED course/MDM: ED Course as of Apr 06 18 Natalie Apr 05, [id number] Patient asks measures for his nightly lisinopril dose, per chart his on 5 mg a day and he reports that he takes half of that in the morning and half at night. We will hold for now since the day renal protective does patient's blood pressure is stable and I did not want to interfere with any possible procedures if needed. [AD] 2048 Patient is doing well, placed him on 2 L of oxygen for comfort. Still awaiting on imaging [AD] [address] [AD] 2124 CT demonstrate extension of pneumothorax. Paged resident continuous improvement engineer for Dr. Herrmann [AD] 2129 Resident Bela from surgery called back and will evaluate pt with Mary Pedroza [AD] [address] Shrestha who started a note for CTS to check on dispo, he is speaking to Dr. Herrmann and will update me on plan [AD] 2226 Troponin: Troponin I <0.012 [AD] 2253 Dr. Herrmann we will manage patient medically, requested a medical admit. I staged [facility] continuous improvement engineer [AD] 2339 Spoke to [facility] continuous improvement engineer, to Dr. Bazan from [facility] and he requests CT PE to r/o PE. Study ahs been ordered. Spoke to pt and he is in agreement. Pt got labs at 14:50pm at [place], Cr <1. No need for new labs at this time. I'm signing out this pt to Dr. Nimesh Parsons at this time. [AD] [address] Call will follow up on CTPE, if negative re-page [facility]. If positive will start heparin here. [AD] ED Course User Index [AD] Yina Cohn MD Patient presenting for shortness of breath at present surgical procedure with a confirmed pneumothorax, no outside hospital 2 days ago. Given patient's exam findings in the emergency department and a CT repeat which revealed bulla of the left lung. Surgery consulted to evaluate the patient. They recommended medical management. Patient discussed with the medicine team. They would like a CT PE completed prior to admission. CTP ordered which revealed no PEs. Conveyed to the inpatient team. Discussed lab and imaging results with the patient. I educated patient would recommend admission further evaluation especially given that his requiring oxygen. Patient verbalized understanding of information given. Patient agreeable with plan. Patient admitted in stable condition. All diagnostic, treatment, and disposition decisions were made by myself in conjunction with the Resident. I also supervised [place]sworth portions of any procedures performed by the Resident. For all further details of the patient's emergency department visit, please see their documentation. (Please note that portions of this note may have been completed with a voice recognition program. Efforts were made to edit the dictations but occasionally words are mis-transcribed.) Eva Call MD [employer] Eva Call MD 04/06/20 0159 Eva Call MD 04/06/20158 [facility] ED Provider Note [facility] EMERGENCY DEPARTMENT ENCOUNTER Pt Name: Oswaldo Corley Birthdate 1940 Date of evaluation: 04/05/2020 Provider: Yina Cohn MD CHIEF COMPLAINT Chief Complaint Patient presents with ? Shortness of Breath pt came from [facility] via EMS for left sided hydropneumothorax pt states he was in the hospital 2 weeks ago with two chest tubes on the left side. pt went to [facility] today for SOB and was brought here. HISTORY OF PRESENT ILLNESS (Location/Symptom, Timing/Onset, Context/Setting, Quality, Duration, Modifying Factors, Severity) Note limiting factors. I wore a KN95 mask for the entirety of this encounter. HPI Oswaldo Corley is a 79 y.o. male with past medical history of lung nodule, COPD, HLD, CAD, CABG, Prostate Cancer and HTN who presents to the emergency department from outside hospital with shortness of breath. Patient had VATS as wedge resection of LLL mass in January, and had been gradually improving until 2 days ago. He developed sudden SOB at rest and left-sided rib/chest pain lies to his axillary line around the area where he had a CT surgery prior. The symptoms are worsened by exertion and improved with rest and aleve. The chest pain is dull and achy and does not radiate. He rates the SOB as an 8/10 on exertion and a 2/10 at rest. Patient has tried using his inhaler without relief. He had a video-assisted thoracoscopy on 02/19 for wedge resection of left lower lobe lung mass. Post-op, patient had a persistent air leak without complete lung re-expansion. Patient was DC home with O2 PRN. Nursing Notes were reviewed. REVIEW OF SYSTEMS (2+ for level 4; 10+ for level 5) Review of Systems Constitutional: Negative for fever and unexpected weight change. HENT: Negative for congestion, ear pain, rhinorrhea, sinus pressure, sneezing and sore throat. Eyes: Negative for pain, discharge and redness. Respiratory: Positive for chest tightness and shortness of breath. Negative for cough and wheezing. Cardiovascular: Positive for chest pain. Negative for palpitations and leg swelling. Gastrointestinal: Negative for abdominal distention, abdominal pain, blood in stool, constipation, diarrhea, nausea and vomiting. Genitourinary: Negative for dysuria, flank pain, frequency, hematuria and urgency. Musculoskeletal: Negative for arthralgias and myalgias. Skin: Negative for rash. Neurological: Negative for dizziness, seizures, syncope, weakness, light-headedness and headaches. Hematological: Negative for adenopathy. Does not bruise/bleed easily. Psychiatric/Behavioral: Negative for behavioral problems, confusion, dysphoric mood and sleep disturbance. The patient is not nervous/anxious. PAST MEDICAL HISTORY Past Medical History: Diagnosis Date ? Aneurysm of aorta (HCC) ? Bronchiectasis (HCC) ? CAD (coronary artery disease) ? Chronic hypoxemic respiratory failure (HCC) ? COPD (chronic obstructive pulmonary disease) ([facility]) ? HLD (hyperlipidemia) ? HTN (hypertension) ? Influenza B ? Nocturnal hypoxia ? On home O2 2 Liters at bedtime ? Prostate CA (HCC) SURGICAL HISTORY Past Surgical History: Procedure Laterality Date ? CORONARY ANGIOPLASTY WITH STENT PLACEMENT 2012 LAD, occluded FRANCIA and COLEMAN ? CORONARY ARTERY BYPASS GRAFT 1999 ? LUNG BIOPSY Left 2019 ? THORACOTOMY Left 02/20/2020 VATS ? TURP CURRENT MEDICATIONS Previous Medications ALBUTEROL (PROVENTIL) (2.5 MG/3ML) 0.083% NEBULIZER SOLUTION Take 2.5 mg by nebulization every 6 hours as needed for Wheezing ALBUTEROL SULFATE HFA 108 (90 BASE) MCG/ACT INHALER ASPIRIN 81 MG EC TABLET Take 81 mg by mouth daily ATORVASTATIN (LIPITOR) 20 MG TABLET Take 20 mg by mouth daily CLOPIDOGREL (PLAVIX) 75 MG TABLET Take 75 mg by mouth daily Last dose on February 01 DULERA 200-5 MCG/ACT INHALER Inhale 200 mcg into the lungs GUAIFENESIN 400 MG TABLET Take 400 mg by mouth as needed LISINOPRIL (PRINIVIL;ZESTRIL) 5 MG TABLET TAKE 1 TABLET BY MOUTH EVERY DAY LORAZEPAM (ATIVAN) 1 MG TABLET 3 times daily as needed. METOPROLOL TARTRATE (LOPRESSOR) 50 MG TABLET Take 25 mg by mouth 2 times daily ONDANSETRON (ZOFRAN) 4 MG TABLET Take 1 tablet by mouth 2 times daily as needed for Nausea or Vomiting SPIRIVA RESPIMAT 2.5 MCG/ACT AERS INHALER INAHLE 2 INHALATION EVERY 24 HOURS ADMINISTER AT APPROXIMATELY THE SAME TIME(S) EACH DAY TAMSULOSIN (FLOMAX) 0.4 MG CAPSULE Take 0.4 mg by mouth daily ALLERGIES Isosorbide, Isosorbide nitrate, and Tramadol FAMILY HISTORY Family History Problem Relation Age of Onset ? Cancer Mother ? Cancer Sister ? Diabetes Father ? Heart Disease Father ? Diabetes Brother SOCIAL HISTORY Social History Socioeconomic History ? Marital status: Spouse name: None ? Number of children: None ? Years of education: None ? Highest education level: None Occupational History ? None Soci (more content not included)... Normal [facility] Troponinon 04-05-2020 Troponin I.cardiac [Mass/Vol] ng/mL 0 - 0.034 ng/mL [place], [place] Comment on above: . Test Performed by [facility], [address] [place] [address] Troponin Ion 04-05-2020 Troponin I.cardiac [Mass/Vol] ng/mL Normal 0.000-0.03 4 [facility] Comment on above: Result Comment: . Performed By: #### H TRICERENETTA3 #### [address] [address] Op Noteon 03-10-2020 Op Note PATIENT: MEETA CORLEY ADMISSION DATE: 02/20/2020 SURGERY DATE: 02/20/2020 DATE OF : 1940 AGE: 79 ADMITTING PHYSICIAN: Oliverio Herrmann MD ATTENDING PHYSICIAN: Oliverio Herrmann MD DICTATING PHYSICIAN: Oliverio Herrmann MD OPERATIVE RECORD Procedure: LEFT THORACOSCOPY, CONVERSION TO MINI THORACOTOMY, EVACUATION OF PLEURAL EFFUSION, WEDGE RESECTION OF LEFT LOWER LOBE LUNG MASS WITH FROZEN SECTION. Preoperative Diagnosis: Left lung mass. Postoperative Diagnosis: Left lung mass. Anesthesia: General endotracheal. Clinical History: The patient is a 79-year-old gentleman who had a left lower lobe lung mass that underwent biopsy at an outside institution. This resulted in a pleural effusion and the biopsy itself was nondiagnostic. The patient was referred for further evaluation. We recommended thoracoscopy with drainage of the pleural effusion and wedge resection of the left lower lobe lung lesion. The patient has severe emphysema on home oxygen at night and was having significant symptoms related to the pleural effusion. The risks, benefits, and alternatives of surgery were discussed in detail with the patient and he agreed to proceed. Description of Procedure: The patient was taken to the operative suite and placed under general endotracheal anesthesia with a double-lumen endotracheal tube in place. The position of the double-lumen endotracheal tube was confirmed bronchoscopically. The patient was turned in the lateral decubitus position in preparation for left thoracoscopy. After he was positioned, prepped, and draped, a small incision was made. A trocar was inserted and a thoracoscope was inserted. A moderately large size pleural effusion was encountered and this was aspirated and sent for evaluation. There were fairly extensive adhesions which were taken down. We then attempted to identify the lung mass, but were unable to do so thoracoscopically. Therefore, a mini thoracotomy incision was made overlying the area of the region where the lesion was suspected. We then were able to palpate the lung and identified the mass within the deep pulmonary parenchyma. A wedge resection was performed using a linear stapler. Because of the depth of the lesion, a very generous wedge resection was performed and the specimen was sent for pathologic evaluation. Although grossly the margins seemed to be negative, the frozen section confirmed malignancy. We were unable to take additional tissue because of the depth. Unfortunately, the patient's pulmonary function tests revealed that he would not tolerate a lobectomy. Therefore, we were able to aspirate all the pleural fluid, took down the adhesions, and achieve lung re-expansion. The chest tubes were left through separate stab incisions and we proceeded with closure with by re-approximating the ribs with #2 Vicryls and the overlying tissues were closed in multiple layers. The patient was awakened, extubated, and taken to recovery room. There was an air leak present, but this improved with discontinuation of positive pressure ventilation. Diskriter Job ID: [id number] Oliverio Herrmann MD DOD:03/10/2020 03:38 P ANGELITA/vijaya DOT:03/10/2020 04:52 P Job Number: [id number] Document Number: [id number] cc: Oliverio Herrmann MD [facility] [address] [place] [address] Normal [facility] Basic Metabolic Panelon -0 Anion gap [Moles/Vol] 6 Normal [facility] Comment on above: Performed By: #### B MP3, HEMDF #### [facility] [address] [place] [address] Calcium [Mass/Vol] 8.3 mg/dL Low 8.4-10.4 [facility] Comment on above: Performed By: #### B MP3, HEMDF #### [facility] [address] [place] [address] CO2 [Moles/Vol] 27 mmol/L Normal 22-30 [facility] Comment on above: Performed By: #### B MP3, HEMDF #### [facility] [address] [place] [address] Glucose [Mass/Vol] 115 mg/dL High 70-100 [facility] Comment on above: Performed By: #### B MP3, HEMDF #### [facility] [address] [place] [address] Urea nitrogen [Mass/Vol] 14 mg/dL Normal 7-20 [facility] Comment on above: Performed By: #### B MP3, HEMDF #### [facility] [address] [place] [address] Creatinine [Mass/Vol] 0.73 mg/dL Normal 0.52-1.25 [facility] Comment on above: Performed By: #### B MP3, HEMDF #### [facility] [address] [place] [address] GFR/1.73 sq M predicted among blacks MDRD (S/P/Bld) [Vol rate/Area] mL/min/{1.73_m2} Normal >60 [facility] Comment on above: Performed By: #### B MP3, HEMDF #### [facility] [address] [place] [address] GFR/1.73 sq M predicted among non-blacks MDRD (S/P/Bld) [Vol rate/Area] 89.1 mL/min/{1.73_m2} Normal >60 [facility] Comment on above: Result Comment: KDIG O guidelines provide the following GFR categories: Stage GFR(ml/min/1.73 m2) Terms G1 >=90 Normal or high G2 60-89 Mildly decreased* G3a 45-59 Mildly to moderately decreased G3b 30-44 Moderately to severely decreased G4 15-29 Severely decreased G5 <15 Kidney failure *Relative to young adult level. In the absence of evidence of kidney damage, neither GFR category G1 nor G2 fulfill the criteria for CKD. The CKD-EPI equation is validated in individuals 18 years of age and older. Currently the best equation for estimating glomerular filtration rate (GFR) from serum creatinine in children is the Bedside Vasquez equation. It is less accurate in patients with extremes of muscle mass, restriction of dietary protein, ingestion of creatine, extra-renal metabolism of creatinine, or treatment with medications that affect renal tubular creatinine secretion. Performed By: #### B MP3, HEMDF #### [place] [address] [place], [place] Potassium [Moles/Vol] 3.7 mmol/L Normal 3.5-5.1 [facility] Comment on above: Performed By: #### B MP3, HEMDF #### [place] [address] [place], [place] Sodium [Moles/Vol] 133 mmol/L Low 135-145 [facility] Comment on above: Performed By: #### B MP3, HEMDF #### [place] [address] [place], [place] Chloride [Moles/Vol] 100 mmol/L Normal 98-107 [facility] Comment on above: Performed By: #### B MP3, HEMDF #### [place] [address] [place], [place] Anion gap [Moles/Vol] 6 mmol/L [facility], [place] Calcium [Mass/Vol] 8.3 mg/dL Low 8.4 - 10. 4 mg/dL [facility], [place] Chloride [Moles/Vol] 100 mmol/L 98 - 10 7 mmol/L [facility] [place] CO2 [Moles/Vol] 27 mmol/L 22 - 30 mmol/L [place], [place] Creatinine [Mass/Vol] 0.73 mg/dL 0.52 - 1.25 mg/dL [place], [place] EGFR IF NonAfrican Wallisian 89.1 mL/min >60 [place] Comment on above: KDIGO guidelines pro vide the following GFR categories: Stage GFR(ml/min/1.73 m2) Terms G1 >=90 Normal or high G2 60-89 Mildly decreased* G3a 45-59 Mildly to moderately decreased G3b 30-44 Moderately to severely decreased G4 15-29 Severely decreased G5 <15 Kidney failure *Relative to young adult level. In the absence of evidence of kidney damage, neither GFR category G1 nor G2 fulfill the criteria for CKD. The CKD-EPI equation is validated in individuals 18 years of age and older. Currently the best equation for estimating glomerular filtration rate (GFR) from serum creatinine in children is the Bedside Vasquez equation. It is less accurate in patients with extremes of muscle mass, restriction of dietary protein, ingestion of creatine, extra-renal metabolism of creatinine, or treatment with medications that affect renal tubular creatinine secretion. GFR/1.73 sq M predicted among blacks MDRD (S/P/Bld) [Vol rate/Area] mL/min/{1.73_m2} >60 mL/min [place], [place] Glucose [Mass/Vol] 115 mg/dL High 70 - 100 mg/dL [place] Interpretation and review of laboratory results Abnormal [place] Potassium [Moles/Vol] 3.7 mmol/L 3.5 - 5.1 mmol/L [place] Sodium [Moles/Vol] 133 mmol/L Low 135 - 145 mmol/L [place] Urea nitrogen [Mass/Vol] 14 mg/dL 7 - 20 mg/dL [place] Test Performed by [facility], [address] [place] [address] [place], [place] CBC auto differentialon Absolute Baso # 0.0 10*3/uL 0 - 0.2 10*3/uL [place] Absolute Neut # 5.9 10*3/uL 1.8 - 7 10*3/uL [place] Basophils/100 WBC (Bld) 0.3 % 0 - 2 % [place] Eosinophils (Bld) [#/Vol] 0.2 10*3/uL 0 - 0.5 10*3/uL [place] Eosinophils/100 WBC (Bld) 3.3 % 1 - 6 % [place] Erythrocyte distribution width (RBC) [Ratio] 15.0 % High 11.5 - 14.5 % [place] Granulocytes/100 WBC (Bld) 82.5 % High 40 - 80 % [place] Hematocrit (Bld) [Volume fraction] 33.4 % Low 40 - 52 % [place] Hemoglobin (Bld) [Mass/Vol] 10.9 g/dL Low 13 - 18 g/dL [place] Interpretation and review of laboratory results Abnormal [place] Lymphocytes (Bld) [#/Vol] 0.5 10*3/uL Low 1 - 4.3 10*3/uL [place] Lymphocytes/100 WBC (Bld) 7.5 % Low 20 - 40 % [place] MCH (RBC) [Entitic mass] 28.9 pg 26 - 34 pg [place] MCHC (RBC) [Mass/Vol] 32.8 % 32 - 36 % [place] MCV (RBC) [Entitic vol] 88.2 fL 80 - 98 fL [place] Monocytes (Bld) [#/Vol] 0.5 10*3/uL 0 - 0.8 10*3/uL [place] Monocytes/100 WBC (Bld) 6.4 % 2 - 10 % [place] Platelet mean volume (Bld) [Entitic vol] 6.6 fL Low 7.4 - 10.4 fL [place] Platelets (Bld) [#/Vol] 355 10*3/uL 140 - 440 10*3/uL [place] RBC (Bld) [#/Vol] 3.78 10*6/uL Low 4.4 - 5.9 10*6/uL [place] WBC (Bld) [#/Vol] 7.2 10*3/uL 3.6 - 10.7 10*3/uL [facility] Test Performed by [facility], [address] [place] [address] [place], [place] CR Chest Portableon 03-03-19 CR Chest Portable Patient Name: OSWALDO CORLEY Diagnostic Radiology ACCESSION EXAM DATE/TIME PROCEDURE ORDERING PROVIDER [id number] 03/03/2020 13:40 EST CR Chest Portable BRIDGETTE DUNN MATTHEW R. CPT code 99881 Reason For Exam (CR Chest Portable) S/P removal of CT Report Examination: Portable chest Indication: S/P removal of CT Findings: Comparison: Study performed earlier today There has been removal of the left-sided chest tube. Patchy left basilar density is present. The right hemithorax is grossly clear other than minimal basilar scarring. The cardiac silhouette and mediastinum are within normal limits. Median sternotomy changes are present. Small osteophytes of the spine are present at multiple levels. Impression: Removal of left-sided chest tube. No sizable pneumothorax. Patchy left basilar density adjacent to the hemidiaphragm. Follow-up recommended. Report Dictated on Workstation: [id number] Final Dictated: 03/03/2020 2:42 pm Dictating Physician: MD DEMPSEY KRIKOR Signed Date and Time: 03/03/2020 2:43 pm Signed by: MD DEMPSEY KRIKOR Transcribed Date and Time: 03/03/2020 2:42 Normal [facility] CR Chest Portable Patient Name: OSWALDO CORLEY Diagnostic Radiology ACCESSION EXAM DATE/TIME PROCEDURE ORDERING PROVIDER [id number] 03/03/2020 05:48 EST CR Chest Portable MD SULLIVAN MAZEN E CPT code 12589 Reason For Exam (CR Chest Portable) sob Report Examination: Portable chest Indication: sob Comparison: Previous day Findings: There is redemonstration of a left-sided chest tube. No sizable pneumothorax is noted. Infiltrate, atelectasis and/or scar of the left lung base is similar. There is mild volume loss of the left hemithorax The right hemithorax is clear. Median sternotomy changes are present. The cardiac silhouette appears grossly normal. Assessment is somewhat limited due to patient rotation. Impression: As above. Report Dictated on Workstation: [id number] Final Dictated: 03/03/2020 7:53 am Dictating Physician: MD DEMPSEY KRIKOR Signed Date and Time: 03/03/2020 7:54 am Signed by: MD DEMPSEY KRIKOR Transcribed Date and Time: 03/03/2020 7:53 Normal [facility] Hemogram w/ Autodiffon 03-03 Abs Baso Cnt 0.0 10*3/uL Normal 0.0-0.2 [facility] Comment on above: Performed By: #### B MP3, HEMDF #### [facility] [address] [place] [address] Abs Neutrophile Cnt 5.9 10*3/uL Normal 1.8-7.0 [facility] Comment on above: Performed By: #### Sana MP3, HEMDF #### [facility] [employer] [place] [address] [place] [address] Basophils/100 WBC (Bld) 0.3 % Normal 0.0-2.0 [facility] Comment on above: Performed By: #### B MP3, HEMDF #### [facility] [address] [place] [address] Eosinophils (Bld) [#/Vol] 0.2 10*3/uL Normal 0.0-0.5 [facility] Comment on above: Performed By: #### B MP3, HEMDF #### [facility] [employer] [facility] [address] [place] [address] Eosinophils/100 WBC (Bld) 3.3 % Normal 1.0-6.0 [facility] Comment on above: Performed By: #### Sana MP3, HEMDF #### [facility] [employer] [facility] [address] [place] [address] Erythrocyte distribution width (RBC) [Ratio] 15.0 % High 11.5-14.5 [facility] Comment on above: Performed By: #### B MP3, HEMDF #### [place] [address] [address] [place], [place] Granulocytes/100 WBC (Bld) 82.5 % High 40.0-80.0 [facility] Comment on above: Performed By: #### B MP3, HEMDF #### [place] [address] [place], [place] Hematocrit (Bld) [Volume fraction] 33.4 % Low 40.0-52.0 [facility] Comment on above: Performed By: #### B MP3, HEMDF #### [place] [address] [place], [place] Hemoglobin (Bld) [Mass/Vol] 10.9 g/dL Low 13.0-18.0 [facility] Comment on above: Performed By: #### B MP3, HEMDF #### [place] [address] [place], [place] Lymphocytes (Bld) [#/Vol] 0.5 10*3/uL Low 1.0-4.3 [facility] Comment on above: Performed By: #### B MP3, HEMDF #### [place] [address] [place], [place] Lymphocytes/100 WBC (Bld) 7.5 % Low 20.0-40.0 [facility] Comment on above: Performed By: #### B MP3, HEMDF #### [place] [address] [place], [place] MCH (RBC) [Entitic mass] 28.9 pg Normal 26.0-34.0 [facility] Comment on above: Performed By: #### B MP3, HEMDF #### [place] [address] [address] [place], [place] MCHC (RBC) [Mass/Vol] 32.8 % Normal 32.0-36.0 [facility] Comment on above: Performed By: #### B MP3, HEMDF #### [place] [address] [place], [place] MCV (RBC) [Entitic vol] 88.2 fL Normal 80.0-98.0 [facility] Comment on above: Performed By: #### B MP3, HEMDF #### [facility] [address] [place], [place] Monocytes (Bld) [#/Vol] 0.5 10*3/uL Normal 0.0-0.8 [facility] Comment on above: Performed By: #### B MP3, HEMDF #### [facility] [address] [place], [place] Monocytes/100 WBC (Bld) 6.4 % Normal 2.0-10.0 [facility] Comment on above: Performed By: #### B MP3, HEMDF #### [place] [address] [address] [place], [place] Platelet mean volume (Bld) [Entitic vol] 6.6 fL Low 7.4-10.4 [facility] Comment on above: Performed By: #### B MP3, HEMDF #### [place] [address] [address] [place], [place] Platelets (Bld) [#/Vol] 355 10*3/uL Normal 140-440 [facility] Comment on above: Performed By: #### B MP3, HEMDF #### [facility] [address] [place], [place] RBC (Bld) [#/Vol] 3.78 10*6/uL Low 4.40-5.90 [facility] Comment on above: Performed By: #### B MP3, HEMDF #### [facility] [address] [place], [place] WBC (Bld) [#/Vol] 7.2 10*3/uL Normal 3.6-10.7 [facility] Comment on above: Performed By: #### B MP3, HEMDF #### [facility] [address] [place], [place] XR CHEST PORTABLEon 03-03-19 Patient Name: OSWALDO CORLEY Diagnostic Radiology ACCESSION EXAM DATE/TIME PROCEDURE ORDERING PROVIDER [id number] 03/03/2020 13:40 EST CR Chest Portable BRIDGETTE DUNN MATTHEW R. CPT code 87169 Reason For Exam (CR Chest Portable) S/P removal of CT Report Examination: Portable chest Indication: S/P removal of CT Findings: Comparison: Study performed earlier today There has been removal of the left-sided chest tube. Patchy left basilar density is present. The right hemithorax is grossly clear other than minimal basilar scarring. The cardiac silhouette and mediastinum are within normal limits. Median sternotomy changes are present. Small osteophytes of the spine are present at multiple levels. Impression: Removal of left-sided chest tube. No sizable pneumothorax. Patchy left basilar density adjacent to the hemidiaphragm. Follow-up recommended. Report Dictated on Workstation: [employer] --- Final --- Dictated: 03/03/2020 2:42 pm Dictating Physician: MD DEMPSEY KRIKOR Signed Date and Time: 03/03/2020 2:43 pm Signed by: MD DEMPSEY KRIKOR Transcribed Date and Time: 03/03/2020 2:42 [place], [place] [facility] Meier Incoming Radiology Results From [facility] - 03/03/2020 2:44 PM EST Patient Name: OSWALDO CORLEY Diagnostic Radiology ACCESSION EXAM DATE/TIME PROCEDURE ORDERING PROVIDER [id number] 03/03/2020 13:40 EST CR Chest Portable BRIDGETTE DUNN MATTHEW R. CPT code 99143 Reason For Exam (CR Chest Portable) S/P removal of CT Report Examination: Portable chest Indication: S/P removal of CT Findings: Comparison: Study performed earlier today There has been removal of the left-sided chest tube. Patchy left basilar density is present. The right hemithorax is grossly clear other than minimal basilar scarring. The cardiac silhouette and mediastinum are within normal limits. Median sternotomy changes are present. Small osteophytes of the spine are present at multiple levels. Impression: Removal of left-sided chest tube. No sizable pneumothorax. Patchy left basilar density adjacent to the hemidiaphragm. Follow-up recommended. Report Dictated on Workstation: [id number] --- Final --- Dictated: 03/03/2020 2:42 pm Dictating Physician: MD DEMPSEY KRIKOR Signed Date and Time: 03/03/2020 2:43 pm Signed by: MD DEMPSEY KRIKOR Transcribed Date and Time: 03/03/2020 2:42 [place], [place] Patient Name: OSWALDO CORLEY Diagnostic Radiology ACCESSION EXAM DATE/TIME PROCEDURE ORDERING PROVIDER [id number] 03/03/2020 05:48 EST CR Chest Portable MD SULLIVAN MAZEN E CPT code 31574 Reason For Exam (CR Chest Portable) sob Report Examination: Portable chest Indication: sob Comparison: Previous day Findings: There is redemonstration of a left-sided chest tube. No sizable pneumothorax is noted. Infiltrate, atelectasis and/or scar of the left lung base is similar. There is mild volume loss of the left hemithorax The right hemithorax is clear. Median sternotomy changes are present. The cardiac silhouette appears grossly normal. Assessment is somewhat limited due to patient rotation. Impression: As above. Report Dictated on Workstation: [id number] --- Final --- Dictated: 03/03/2020 7:53 am Dictating Physician: MD DEMPSEY KRIKOR Signed Date and Time: 03/03/2020 7:54 am Signed by: MD DEMPSEY KRIKOR Transcribed Date and Time: 03/03/2020 7:53 [place], [place] [facility] Incoming Radiology Results From [facility] - 03/03/2020 7:55 AM EST Patient Name: OSWALDO CORLEY Diagnostic Radiology ACCESSION EXAM DATE/TIME PROCEDURE ORDERING PROVIDER [id number] 03/03/2020 05:48 EST CR Chest Portable MD SULLIVAN MAZEN E CPT code 47524 Reason For Exam (CR Chest Portable) sob Report Examination: Portable chest Indication: sob Comparison: Previous day Findings: There is redemonstration of a left-sided chest tube. No sizable pneumothorax is noted. Infiltrate, atelectasis and/or scar of the left lung base is similar. There is mild volume loss of the left hemithorax The right hemithorax is clear. Median sternotomy changes are present. The cardiac silhouette appears grossly normal. Assessment is somewhat limited due to patient rotation. Impression: As above. Report Dictated on Workstation: [id number] --- Final --- Dictated: 03/03/2020 7:53 am Dictating Physician: MD DEMPSEY KRIKOR Signed Date and Time: 03/03/2020 7:54 am Signed by: MD DEMPSEY KRIKOR Transcribed Date and Time: 03/03/2020 7:53 [place], [place] Basic Metabolic Panelon 01-0 Calcium [Mass/Vol] 8.3 mg/dL Low 8.4-10.4 [facility] Comment on above: Performed By: #### B MP3, HEMDF #### [facility] [address], [place] Glucose [Mass/Vol] 104 mg/dL High 70-100 [facility] Comment on above: Performed By: #### B MP3, HEMDF #### [facility] [address], [place] Urea nitrogen [Mass/Vol] 13 mg/dL Normal 7-20 [facility] Comment on above: Performed By: #### B MP3, HEMDF #### [facility] [address], [place] Anion gap [Moles/Vol] 4 Normal [facility] Comment on above: Performed By: #### B MP3, HEMDF #### [facility] [address] [place], [place] CO2 [Moles/Vol] 29 mmol/L Normal 22-30 [facility] Comment on above: Performed By: #### B MP3, HEMDF #### [facility] [address] [place], [place] Creatinine [Mass/Vol] 0.67 mg/dL Normal 0.52-1.25 [facility] Comment on above: Performed By: #### B MP3, HEMDF #### [facility] [address] [place] [address] GFR/1.73 sq M predicted among blacks MDRD (S/P/Bld) [Vol rate/Area] mL/min/{1.73_m2} Normal >60 [facility] Comment on above: Performed By: #### B MP3, HEMDF #### [facility] [address] [place] [address] GFR/1.73 sq M predicted among non-blacks MDRD (S/P/Bld) [Vol rate/Area] mL/min/{1.73_m2} Normal >60 [facility] Comment on above: Result Comment: KDIG O guidelines provide the following GFR categories: Stage GFR(ml/min/1.73 m2) Terms G1 >=90 Normal or high G2 60-89 Mildly decreased* G3a 45-59 Mildly to moderately decreased G3b 30-44 Moderately to severely decreased G4 15-29 Severely decreased G5 <15 Kidney failure *Relative to young adult level. In the absence of evidence of kidney damage, neither GFR category G1 nor G2 fulfill the criteria for CKD. The CKD-EPI equation is validated in individuals 18 years of age and older. Currently the best equation for estimating glomerular filtration rate (GFR) from serum creatinine in children is the Bedside Vasquez equation. It is less accurate in patients with extremes of muscle mass, restriction of dietary protein, ingestion of creatine, extra-renal metabolism of creatinine, or treatment with medications that affect renal tubular creatinine secretion. Performed By: #### B MP3, HEMDF #### [facility] [address] [place] [address] Potassium [Moles/Vol] 4.1 mmol/L Normal 3.5-5.1 [facility] Comment on above: Performed By: #### B MP3, HEMDF #### [facility] [address] [place] [address] Chloride [Moles/Vol] 101 mmol/L Normal 98-107 [facility] Comment on above: Performed By: #### B MP3, HEMDF #### [facility] [address] [place] [address] Sodium [Moles/Vol] 134 mmol/L Low 135-145 [facility] Comment on above: Performed By: #### B MP3, HEMDF #### [facility] [address] [place] [address] Anion gap [Moles/Vol] 4 mmol/L [place], [place] Calcium [Mass/Vol] 8.3 mg/dL Low 8.4 - 10. 4 mg/dL [place] Chloride [Moles/Vol] 101 mmol/L 98 - 10 7 mmol/L [place] CO2 [Moles/Vol] 29 mmol/L 22 - 30 mmol/L [place] Creatinine [Mass/Vol] 0.67 mg/dL 0.52 - 1.25 mg/dL [place] EGFR IF NonAfrican [place] >90.0 >60 mL/min [place] Comment on above: KDIGO guidelines pro vide the following GFR categories: Stage GFR(ml/min/1.73 m2) Terms G1 >=90 Normal or high G2 60-89 Mildly decreased* G3a 45-59 Mildly to moderately decreased G3b 30-44 Moderately to severely decreased G4 15-29 Severely decreased G5 <15 Kidney failure *Relative to young adult level. In the absence of evidence of kidney damage, neither GFR category G1 nor G2 fulfill the criteria for CKD. The CKD-EPI equation is validated in individuals 18 years of age and older. Currently the best equation for estimating glomerular filtration rate (GFR) from serum creatinine in children is the Bedside Vasquez equation. It is less accurate in patients with extremes of muscle mass, restriction of dietary protein, ingestion of creatine, extra-renal metabolism of creatinine, or treatment with medications that affect renal tubular creatinine secretion. GFR/1.73 sq M predicted among blacks MDRD (S/P/Bld) [Vol rate/Area] mL/min/{1.73_m2} >60 mL/min [place], [place] Glucose [Mass/Vol] 104 mg/dL High 70 - 100 mg/dL [place] Interpretation and review of laboratory results Abnormal [place] Potassium [Moles/Vol] 4.1 mmol/L 3.5 - 5.1 mmol/L [place] Sodium [Moles/Vol] 134 mmol/L Low 135 - 145 mmol/L [place] Urea nitrogen [Mass/Vol] 13 mg/dL 7 - 20 mg/dL [place] Test Performed by [facility], [address] [place] [address], [place] [address] [place], [place] CBC auto differentialon Absolute Baso # 0.0 10*3/uL 0 - 0.2 10*3/uL [place] Absolute Neut # 5.9 10*3/uL 1.8 - 7 10*3/uL [place] Basophils/100 WBC (Bld) 0.5 % 0 - 2 % [place] Eosinophils (Bld) [#/Vol] 0.3 10*3/uL 0 - 0.5 10*3/uL [place] Eosinophils/100 WBC (Bld) 3.6 % 1 - 6 % [place] Erythrocyte distribution width (RBC) [Ratio] 14.9 % High 11.5 - 14.5 % [place] Granulocytes/100 WBC (Bld) 82.5 % High 40 - 80 % [place] Hematocrit (Bld) [Volume fraction] 32.9 % Low 40 - 52 % [place] Hemoglobin (Bld) [Mass/Vol] 10.6 g/dL Low 13 - 18 g/dL [place] Interpretation and review of laboratory results Abnormal [place] Lymphocytes (Bld) [#/Vol] 0.4 10*3/uL Low 1 - 4.3 10*3/uL [place] Lymphocytes/100 WBC (Bld) 6.3 % Low 20 - 40 % [place] MCH (RBC) [Entitic mass] 28.9 pg 26 - 34 pg [place] MCHC (RBC) [Mass/Vol] 32.3 % 32 - 36 % [place] MCV (RBC) [Entitic vol] 89.4 fL 80 - 98 fL [place] Monocytes (Bld) [#/Vol] 0.5 10*3/uL 0 - 0.8 10*3/uL [place] Monocytes/100 WBC (Bld) 7.1 % 2 - 10 % [place] Platelet mean volume (Bld) [Entitic vol] 6.6 fL Low 7.4 - 10.4 fL [place] Platelets (Bld) [#/Vol] 316 10*3/uL 140 - 440 10*3/uL [place] RBC (Bld) [#/Vol] 3.68 10*6/uL Low 4.4 - 5.9 10*6/uL [place] WBC (Bld) [#/Vol] 7.1 10*3/uL 3.6 - 10.7 10*3/uL [place] Test Performed by [facility], [address] [place] [id number] [place] [address] CR Chest Portableon 03-02-19 21 CR Chest Portable Patient Name: OSWALDO CROLEY Diagnostic Radiology ACCESSION EXAM DATE/TIME PROCEDURE ORDERING PROVIDER [id number] 03/02/2020 06:22 EST CR Chest Portable MD NATE, RODRICK Davila CPT code 24506 Reason For Exam (CR Chest Portable) sob Report PORTABLE CHEST CLINICAL INDICATION: Short of breath. COMPARISON: Yesterday. TECHNIQUE: A single frontal view of thorax was obtained and reviewed. IMPRESSION: 1. Lines/ tubes/ devices: Sternotomy wires. Left basilar chest tube is directed toward the left lung apex. 2. Lungs and Pleura: Left lower lobe parenchymal density with linear component, likely segmental atelectasis is redemonstrated. Small left basilar pneumothorax, unchanged. No pleural effusion. 3. Heart and mediastinum: Normal cardiomediastinal margin. 4. Bones: Thoracic degenerative spondylosis. Report Dictated on Final Dictated: 03/02/2020 8:43 am Dictating Physician: BELA POWER DO, I Signed Date and Time: 03/02/2020 8:45 am Signed by: BELA POWER DO, I Transcribed Date and Time: 03/02/2020 8:43 Normal [facility] Hemogram w/ Autodiffon 03-02 Abs Baso Cnt 0.0 10*3/uL Normal 0.0-0.2 [facility] Comment on above: Performed By: #### B MP3, HEMDF #### [facility] [address] [place] [address] Abs Neutrophile Cnt 5.9 10*3/uL Normal 1.8-7.0 [facility] Comment on above: Performed By: #### B MP3, HEMDF #### [facility] [address] [place] [address] Basophils/100 WBC (Bld) 0.5 % Normal 0.0-2.0 [facility] Comment on above: Performed By: #### B MP3, HEMDF #### [facility] [address] [place] [address] Eosinophils (Bld) [#/Vol] 0.3 10*3/uL Normal 0.0-0.5 [facility] Comment on above: Performed By: #### B MP3, HEMDF #### [facility] [address] [place] [address] Eosinophils/100 WBC (Bld) 3.6 % Normal 1.0-6.0 [facility] Comment on above: Performed By: #### B MP3, HEMDF #### [facility] [address] [place], [place] Erythrocyte distribution width (RBC) [Ratio] 14.9 % High 11.5-14.5 [facility] Comment on above: Performed By: #### B MP3, HEMDF #### [facility] [address] [place] [address] Granulocytes/100 WBC (Bld) 82.5 % High 40.0-80.0 [facility] Comment on above: Performed By: #### B MP3, HEMDF #### [facility] [address] [place] [address] Hematocrit (Bld) [Volume fraction] 32.9 % Low 40.0-52.0 [facility] Comment on above: Performed By: #### B MP3, HEMDF #### [place] [address] [place], [place] Hemoglobin (Bld) [Mass/Vol] 10.6 g/dL Low 13.0-18.0 [facility] Comment on above: Performed By: #### B MP3, HEMDF #### [place] [address] [address] [place], [place] Lymphocytes (Bld) [#/Vol] 0.4 10*3/uL Low 1.0-4.3 [facility] Comment on above: Performed By: #### B MP3, HEMDF #### [place] [address] [place], [place] Lymphocytes/100 WBC (Bld) 6.3 % Low 20.0-40.0 [facility] Comment on above: Performed By: #### B MP3, HEMDF #### [place] [address] [place], [place] MCH (RBC) [Entitic mass] 28.9 pg Normal 26.0-34.0 [facility] Comment on above: Performed By: #### B MP3, HEMDF #### [place] [address] [address] [place], [place] MCHC (RBC) [Mass/Vol] 32.3 % Normal 32.0-36.0 [facility] Comment on above: Performed By: #### B MP3, HEMDF #### [place] [address] [address] [place], [place] MCV (RBC) [Entitic vol] 89.4 fL Normal 80.0-98.0 [facility] Comment on above: Performed By: #### B MP3, HEMDF #### [place] [address] [place], [place] Monocytes (Bld) [#/Vol] 0.5 10*3/uL Normal 0.0-0.8 [facility] Comment on above: Performed By: #### B MP3, HEMDF #### [place] [address] [address] [place], [place] Monocytes/100 WBC (Bld) 7.1 % Normal 2.0-10.0 [facility] Comment on above: Performed By: #### B MP3, HEMDF #### [facility] [address] [place] [address] Platelet mean volume (Bld) [Entitic vol] 6.6 fL Low 7.4-10.4 [facility] Comment on above: Performed By: #### B MP3, HEMDF #### [facility] [address] [place], [place] Platelets (Bld) [#/Vol] 316 10*3/uL Normal 140-440 [facility] Comment on above: Performed By: #### B MP3, HEMDF #### [facility] [address] [place], [place] RBC (Bld) [#/Vol] 3.68 10*6/uL Low 4.40-5.90 [facility] Comment on above: Performed By: #### B MP3, HEMDF #### [facility] [address] [place], [place] WBC (Bld) [#/Vol] 7.1 10*3/uL Normal 3.6-10.7 [facility] Comment on above: Performed By: #### B MP3, HEMDF #### [facility] [address] [place] [address] XR CHEST PORTABLEon 03-02-19 Patient Name: OSWALDO ALANIZ Diagnostic Radiology ACCESSION EXAM DATE/TIME PROCEDURE ORDERING PROVIDER [id number] 03/02/2020 06:22 EST CR Chest Portable MD SULLIVAN MAZEN E CPT code 65944 Reason For Exam (CR Chest Portable) sob Report PORTABLE CHEST CLINICAL INDICATION: Short of breath. COMPARISON: Yesterday. TECHNIQUE: A single frontal view of thorax was obtained and reviewed. IMPRESSION: 1. Lines/ tubes/ devices: Sternotomy wires. Left basilar chest tube is directed toward the left lung apex. 2. Lungs and Pleura: Left lower lobe parenchymal density with linear component, likely segmental atelectasis is redemonstrated. Small left basilar pneumothorax, unchanged. No pleural effusion. 3. Heart and mediastinum: Normal cardiomediastinal margin. 4. Bones: Thoracic degenerative spondylosis. Report Dictated on --- Final --- Dictated: 03/02/2020 8:43 am Dictating Physician: BELA POWER DO, I Signed Date and Time: 03/02/2020 8:45 am Signed by: BELA POWER DO, I Transcribed Date and Time: 03/02/2020 8:43 [facility], Nolan Suarez Incoming Radiology Results From [facility] - 03/02/2020 8:46 AM EST Patient Name: OSWALDO CORLEY Diagnostic Radiology ACCESSION EXAM DATE/TIME PROCEDURE ORDERING PROVIDER [id number] 03/02/2020 06:22 EST CR Chest Portable MD SULLIVAN MAZEN E CPT code 58487 Reason For Exam (CR Chest Portable) sob Report PORTABLE CHEST CLINICAL INDICATION: Short of breath. COMPARISON: Yesterday. TECHNIQUE: A single frontal view of thorax was obtained and reviewed. IMPRESSION: 1. Lines/ tubes/ devices: Sternotomy wires. Left basilar chest tube is directed toward the left lung apex. 2. Lungs and Pleura: Left lower lobe parenchymal density with linear component, likely segmental atelectasis is redemonstrated. Small left basilar pneumothorax, unchanged. No pleural effusion. 3. Heart and mediastinum: Normal cardiomediastinal margin. 4. Bones: Thoracic degenerative spondylosis. Report Dictated on --- Final --- Dictated: 03/02/2020 8:43 am Dictating Physician: BELA POWER DO, I Signed Date and Time: 03/02/2020 8:45 am Signed by: BELA POWER DO, I Transcribed Date and Time: 03/02/2020 8:43 [facility]3 Anion gap [Moles/Vol] [address] [facility] Comment on above: Performed By: #### H EMD, BMP3 ####[address] [address] Calcium [Mass/Vol] 8.0 mg/dL Low 8.4-10.4 [facility] Comment on above: Performed By: #### H IJEOMA BMP3 ####[place] [address] [place], [place] CO2 [Moles/Vol] 30 mmol/L Normal 22-30 [facility] Comment on above: Performed By: #### H IJEOMA BMP3 ####[address] [place], [place] Creatinine [Mass/Vol] 0.71 mg/dL Normal 0.52-1.25 [facility] Comment on above: Performed By: #### H IJEOMA BMP3 ####[address] [place], [place] GFR/1.73 sq M predicted among blacks MDRD (S/P/Bld) [Vol rate/Area] mL/min/{1.73_m2} Normal >60 [facility] Comment on above: Performed By: #### H IJEOMA BMP3 ####[place] [address] [place], [place] GFR/1.73 sq M predicted among non-blacks MDRD (S/P/Bld) [Vol rate/Area] mL/min/{1.73_m2} Normal >60 [facility] Comment on above: Result Comment: KDIG O guidelines provide the following GFR categories: Stage GFR(ml/min/1.73 m2) Terms G1 >=90 Normal or high G2 60-89 Mildly decreased* G3a 45-59 Mildly to moderately decreased G3b 30-44 Moderately to severely decreased G4 15-29 Severely decreased G5 <15 Kidney failure *Relative to young adult level. In the absence of evidence of kidney damage, neither GFR category G1 nor G2 fulfill the criteria for CKD. The CKD-EPI equation is validated in individuals 18 years of age and older. Currently the best equation for estimating glomerular filtration rate (GFR) from serum creatinine in children is the Bedside Vasquez equation. It is less accurate in patients with extremes of muscle mass, restriction of dietary protein, ingestion of creatine, extra-renal metabolism of creatinine, or treatment with medications that affect renal tubular creatinine secretion. Performed By: #### H IJEOMA, BMP3 ####[facility] [place] [address] Glucose [Mass/Vol] 104 mg/dL High 70-100 [facility] Comment on above: Performed By: #### H IJEOMA, BMP3 ####[facility] [place] [address] Urea nitrogen [Mass/Vol] 15 mg/dL Normal 7-20 [facility] Comment on above: Performed By: #### H IJEOMA, BMP3 ####[address] [place] [address] Chloride [Moles/Vol] 100 mmol/L Normal 98-107 [facility] Comment on above: Performed By: #### H IJEOMA, BMP3 ####[address] [place] [address] Potassium [Moles/Vol] 3.6 mmol/L Normal 3.5-5.1 [facility] Comment on above: Performed By: #### H IJEOMA BMP3 ####[address] [place] [address] Sodium [Moles/Vol] 133 mmol/L Low 135-145 [facility] Comment on above: Performed By: #### H IJEOMA, BMP3 ####[address] [place] [address] Anion gap [Moles/Vol] 2 mmol/L [place], [place] Calcium [Mass/Vol] 8.0 mg/dL Low 8.4 - 10. 4 mg/dL [place] Chloride [Moles/Vol] 100 mmol/L 98 - 10 7 mmol/L [place] CO2 [Moles/Vol] 30 mmol/L 22 - 30 mmol/L [place] Creatinine [Mass/Vol] 0.71 mg/dL 0.52 - 1.25 mg/dL [place] EGFR IF NonAfrican [place]isian >90.0 >60 mL/min [place] Comment on above: KDIGO guidelines pro vide the following GFR categories: Stage GFR(ml/min/1.73 m2) Terms G1 >=90 Normal or high G2 60-89 Mildly decreased* G3a 45-59 Mildly to moderately decreased G3b 30-44 Moderately to severely decreased G4 15-29 Severely decreased G5 <15 Kidney failure *Relative to young adult level. In the absence of evidence of kidney damage, neither GFR category G1 nor G2 fulfill the criteria for CKD. The CKD-EPI equation is validated in individuals 18 years of age and older. Currently the best equation for estimating glomerular filtration rate (GFR) from serum creatinine in children is the Bedside Vasquez equation. It is less accurate in patients with extremes of muscle mass, restriction of dietary protein, ingestion of creatine, extra-renal metabolism of creatinine, or treatment with medications that affect renal tubular creatinine secretion. GFR/1.73 sq M predicted among blacks MDRD (S/P/Bld) [Vol rate/Area] mL/min/{1.73_m2} >60 mL/min [place] Glucose [Mass/Vol] 104 mg/dL High 70 - 100 mg/dL [place] Interpretation and review of laboratory results Abnormal [place] Potassium [Moles/Vol] 3.6 mmol/L 3.5 - 5.1 mmol/L [place] Sodium [Moles/Vol] 133 mmol/L Low 135 - 145 mmol/L [place] Urea nitrogen [Mass/Vol] 15 mg/dL 7 - 20 mg/dL [place] Test Performed by [facility], [address] [place] [id number] [place] [address] CBC auto differentialon 12-3 Absolute Baso # 0.0 10*3/uL 0 - 0.2 10*3/uL [place] Absolute Neut # 5.2 10*3/uL 1.8 - 7 10*3/uL [place] Basophils/100 WBC (Bld) 0.5 % 0 - 2 % [place] Eosinophils (Bld) [#/Vol] 0.2 10*3/uL 0 - 0.5 10*3/uL [place] Eosinophils/100 WBC (Bld) 3.1 % 1 - 6 % [place] Erythrocyte distribution width (RBC) [Ratio] 14.7 % High 11.5 - 14.5 % [place] Granulocytes/100 WBC (Bld) 81.2 % High 40 - 80 % [place] Hematocrit (Bld) [Volume fraction] 33.1 % Low 40 - 52 % [place] Hemoglobin (Bld) [Mass/Vol] 10.8 g/dL Low 13 - 18 g/dL [place] Interpretation and review of laboratory results Abnormal [place] Lymphocytes (Bld) [#/Vol] 0.5 10*3/uL Low 1 - 4.3 10*3/uL [place] Lymphocytes/100 WBC (Bld) 8.3 % Low 20 - 40 % [place] MCH (RBC) [Entitic mass] 28.8 pg 26 - 34 pg [place] MCHC (RBC) [Mass/Vol] 32.6 % 32 - 36 % [place] MCV (RBC) [Entitic vol] 88.4 fL 80 - 98 fL [place] Monocytes (Bld) [#/Vol] 0.4 10*3/uL 0 - 0.8 10*3/uL [place] Monocytes/100 WBC (Bld) 6.9 % 2 - 10 % [place] Platelet mean volume (Bld) [Entitic vol] 6.7 fL Low 7.4 - 10.4 fL [place] Platelets (Bld) [#/Vol] 295 10*3/uL 140 - 440 10*3/uL [place] RBC (Bld) [#/Vol] 3.75 10*6/uL Low 4.4 - 5.9 10*6/uL [place] WBC (Bld) [#/Vol] 6.4 10*3/uL 3.6 - 10.7 10*3/uL [place] Test Performed by [facility], [address] [place] [address] [place] CR Chest Portableon 03-01-20 20 CR Chest Portable Patient Name: OSWALDO CORLEY Diagnostic Radiology ACCESSION EXAM DATE/TIME PROCEDURE ORDERING PROVIDER [id number] 03/01/2020 15:25 EST CR Chest Portable [id number] -DANIELA WALLS CPT code 08587 Reason For Exam (CR Chest Portable) chest tube removal x1, other switched to flutter valve, looking to see if pneumothorax is same or worse Report Portable chest 03/01/2020: Clinical Information: Chest tube removal, residual chest tube in place. Findings: A single AP portable view of the chest was obtained at 1508 hours. Comparison was made to the prior study earlier study same date 0419 hours. The left basal chest tube has been removed. A residual chest tube remains in place. There is a small left basal pneumothorax and a small left pleural effusion. There is no other interval change when compared to the earlier study. Report Dictated on Workstation: [id number] Final Dictated: 03/01/2020 3:22 pm Dictating Physician: MD ROBERSON RISA Signed Date and Time: 03/01/2020 3:23 pm Signed by: MD ROBERSON RISA Transcribed Date and Time: 03/01/2020 3:22 Normal [facility] CR Chest Portable Patient Name: OSWALDO CORLEY Diagnostic Radiology ACCESSION EXAM DATE/TIME PROCEDURE ORDERING PROVIDER [id number] 03/01/2020 04:31 EST CR Chest Portable MD SULLIVAN MAZEN E CPT code 39162 Reason For Exam (CR Chest Portable) sob Report CHEST - PORTABLE: CLINICAL INDICATION: Shortness of breath TECHNIQUE: Portable AP COMPARISON: One day ago FINDINGS: Life support devices: Two left chest tubes are noted Heart/Mediastinum: Unchanged Lungs/Pleura: Small residual left pneumothorax is noted. Atelectasis noted at the left lung base. There is no other consolidation. The right costophrenic angle is sharp but the left is obscured. IMPRESSION: Left chest tubes with small residual pneumothorax and atelectasis at the left lung base. Report Dictated on Workstation: [facility] Final Dictated: 03/01/2020 5:07 am Dictating Physician: MD ESPINO JEFFREY Signed Date and Time: 03/01/2020 5:22 am Signed by: MD ESPINO JEFFREY Transcribed Date and Time: 03/01/2020 5:07 Normal [facility] Hemogram w/ Autodiffon 03-01 Abs Baso Cnt 0.0 10*3/uL Normal 0.0-0.2 [facility] Comment on above: Performed By: #### H EMDYuri BMP3 ####[address] Abs Neutrophile Cnt 5.2 10*3/uL Normal 1.8-7.0 [facility] Comment on above: Performed By: #### H EMDYuri BMP3 ####[address] Basophils/100 WBC (Bld) 0.5 % Normal 0.0-2.0 [facility] Comment on above: Performed By: #### H IJEOMA BMP3 ####[address] Eosinophils (Bld) [#/Vol] 0.2 10*3/uL Normal 0.0-0.5 [facility] Comment on above: Performed By: #### H IJEOMA BMP3 ####[address] Eosinophils/100 WBC (Bld) 3.1 % Normal 1.0-6.0 [facility] Comment on above: Performed By: #### H IJEOMA BMP3 ####[address] Erythrocyte distribution width (RBC) [Ratio] 14.7 % High 11.5-14.5 [facility] Comment on above: Performed By: #### H IJEOMA BMP3 ####[address] Granulocytes/100 WBC (Bld) 81.2 % High 40.0-80.0 [facility] Comment on above: Performed By: #### H EMDYuri BMP3 ####[address] Hematocrit (Bld) [Volume fraction] 33.1 % Low 40.0-52.0 [facility] Comment on above: Performed By: #### H IJEOMA BMP3 ####[address] Hemoglobin (Bld) [Mass/Vol] 10.8 g/dL Low 13.0-18.0 [facility] Comment on above: Performed By: #### H IJEOMA BMP3 ####[address] Lymphocytes (Bld) [#/Vol] 0.5 10*3/uL Low 1.0-4.3 [facility] Comment on above: Performed By: #### H IJEOMA BMP3 ####[address] Lymphocytes/100 WBC (Bld) 8.3 % Low 20.0-40.0 [facility] Comment on above: Performed By: #### H IJEOMA BMP3 ####[address] MCH (RBC) [Entitic mass] 28.8 pg Normal 26.0-34.0 [facility] Comment on above: Performed By: #### H IJEOMA BMP3 ####[address] MCHC (RBC) [Mass/Vol] 32.6 % Normal 32.0-36.0 [facility] Comment on above: Performed By: #### H IJEOMA BMP3 ####[address] MCV (RBC) [Entitic vol] 88.4 fL Normal 80.0-98.0 [facility] Comment on above: Performed By: #### H IJEOMA BMP3 ####[address] Monocytes (Bld) [#/Vol] 0.4 10*3/uL Normal 0.0-0.8 [facility] Comment on above: Performed By: #### H EMDF, BMP3 ####[facility] [employer] [id number] [place], [place] Monocytes/100 WBC (Bld) 6.9 % Normal 2.0-10.0 [facility] Comment on above: Performed By: #### H EMDF, BMP3 ####[facility] [employer] [id number] [place], [place] Platelet mean volume (Bld) [Entitic vol] 6.7 fL Low 7.4-10.4 [facility] Comment on above: Performed By: #### H EMDF, BMP3 ####[address] [place], [place] Platelets (Bld) [#/Vol] 295 10*3/uL Normal 140-440 [facility] Comment on above: Performed By: #### H EMDF, BMP3 ####[address] [place], [place] RBC (Bld) [#/Vol] 3.75 10*6/uL Low 4.40-5.90 [facility] Comment on above: Performed By: #### H EMDF BMP3 ####[address] [place], [place] WBC (Bld) [#/Vol] 6.4 10*3/uL Normal 3.6-10.7 [facility] Comment on above: Performed By: #### H EMDF, BMP3 ####[facility] [employer] [id number] [place], [place] XR CHEST PORTABLEon 03-01-20 Patient Name: OSWALDO CORLEY Diagnostic Radiology ACCESSION EXAM DATE/TIME PROCEDURE ORDERING PROVIDER [id number] 03/01/2020 15:25 EST CR Chest Portable [id number] DANIELA TELLEZ CPT code 16076 Reason For Exam (CR Chest Portable) chest tube removal x1, other switched to flutter valve, looking to see if pneumothorax is same or worse Report Portable chest 03/01/2020: Clinical Information: Chest tube removal, residual chest tube in place. Findings: A single AP portable view of the chest was obtained at 1508 hours. Comparison was made to the prior study earlier study same date 0419 hours. The left basal chest tube has been removed. A residual chest tube remains in place. There is a small left basal pneumothorax and a small left pleural effusion. There is no other interval change when compared to the earlier study. Report Dictated on --- Final --- Dictated: 03/01/2020 3:22 pm Dictating Physician: MD ROBERSON RISA Signed Date and Time: 03/01/2020 3:23 pm Signed by: MD ROBERSON RISA Transcribed Date and Time: 03/01/2020 3:22 [place], [place], [place] Incoming Radiology Results From [facility] - 03/01/2020 3:25 PM EST Patient Name: OSWALDO CORLEY Diagnostic Radiology ACCESSION EXAM DATE/TIME PROCEDURE ORDERING PROVIDER [id number] 03/01/2020 15:25 EST CR Chest Portable [id number] HERNANDEZ CPT code 59131 Reason For Exam (CR Chest Portable) chest tube removal x1, other switched to flutter valve, looking to see if pneumothorax is same or worse Report Portable chest 03/01/2020: Clinical Information: Chest tube removal, residual chest tube in place. Findings: A single AP portable view of the chest was obtained at 1508 hours. Comparison was made to the prior study earlier study same date 0419 hours. The left basal chest tube has been removed. A residual chest tube remains in place. There is a small left basal pneumothorax and a small left pleural effusion. There is no other interval change when compared to the earlier study. Report Dictated on --- Final --- Dictated: 03/01/2020 3:22 pm Dictating Physician: MD ROBERSON RISA Signed Date and Time: 03/01/2020 3:23 pm Signed by: MD ROBERSON RISA Transcribed Date and Time: 03/01/2020 3:22 [facility] [place] Patient Name: OSWALDO CORLEY Diagnostic Radiology ACCESSION EXAM DATE/TIME PROCEDURE ORDERING PROVIDER [id number] 03/01/2020 04:31 EST CR Chest Portable MD SULLIVAN MAZEN E CPT code 58664 Reason For Exam (CR Chest Portable) sob Report CHEST - PORTABLE: CLINICAL INDICATION: Shortness of breath TECHNIQUE: Portable AP COMPARISON: One day ago FINDINGS: Life support devices: Two left chest tubes are noted Heart/Mediastinum: Unchanged Lungs/Pleura: Small residual left pneumothorax is noted. Atelectasis noted at the left lung base. There is no other consolidation. The right costophrenic angle is sharp but the left is obscured. IMPRESSION: Left chest tubes with small residual pneumothorax and atelectasis at the left lung base. Report Dictated on Workstation: [id number] --- Final --- Dictated: 03/01/2020 5:07 am Dictating Physician: MD ESPINO JEFFREY Signed Date and Time: 03/01/2020 5:22 am Signed by: MD ESPINO JEFFREY Transcribed Date and Time: 03/01/2020 5:07 [facility], [place], [facility] Incoming Radiology Results From [facility] - 03/01/2020 5:23 AM EST [facility] Name[id number] Radiology ACCESSION EXAM DATE/TIME PROCEDURE ORDERING PROVIDER [id number] 03/01/2020 04:31 EST CR Chest Portable MD SULLIVAN MAZEN E CPT code 32281 Reason For Exam (CR Chest Portable) sob Report CHEST - PORTABLE: CLINICAL INDICATION: Shortness of breath TECHNIQUE: Portable AP COMPARISON: One day ago FINDINGS: Life support devices: Two left chest tubes are noted Heart/Mediastinum: Unchanged Lungs/Pleura: Small residual left pneumothorax is noted. Atelectasis noted at the left lung base. There is no other consolidation. The right costophrenic angle is sharp but the left is obscured. IMPRESSION: Left chest tubes with small residual pneumothorax and atelectasis at the left lung base. Report Dictated on Workstation: [id number] --- Final --- Dictated: 03/01/2020 5:07 am Dictating Physician: MD ESPINO JEFFREY Signed Date and Time: 03/01/2020 5:22 am Signed by: MD ESPINO JEFFREY Transcribed Date and Time: 03/01/2020 5:07 [place], [place] Basic Metabolic Panelon 12-3 Calcium [Mass/Vol] 8.2 mg/dL Low 8.4-10.4 [facility] Comment on above: Performed By: #### B MP3, HEMDF #### [facility] [address], [place] Anion gap [Moles/Vol] 5 Normal [facility] Comment on above: Performed By: #### B MP3, HEMDF #### [facility] [address], [place] CO2 [Moles/Vol] 30 mmol/L Normal 22-30 [facility] Comment on above: Performed By: #### B MP3, HEMDF #### [facility] [address], [place] Creatinine [Mass/Vol] 0.69 mg/dL Normal 0.52-1.25 [facility] Comment on above: Performed By: #### B MP3, HEMDF #### [facility] [address], [place] GFR/1.73 sq M predicted among blacks MDRD (S/P/Bld) [Vol rate/Area] mL/min/{1.73_m2} Normal >60 [facility] Comment on above: Performed By: #### B MP3, HEMDF #### [facility] [address], [place] GFR/1.73 sq M predicted among non-blacks MDRD (S/P/Bld) [Vol rate/Area] mL/min/{1.73_m2} Normal >60 [facility] Comment on above: Result Comment: KDIG O guidelines provide the following GFR categories: Stage GFR(ml/min/1.73 m2) Terms G1 >=90 Normal or high G2 60-89 Mildly decreased* G3a 45-59 Mildly to moderately decreased G3b 30-44 Moderately to severely decreased G4 15-29 Severely decreased G5 <15 Kidney failure *Relative to young adult level. In the absence of evidence of kidney damage, neither GFR category G1 nor G2 fulfill the criteria for CKD. The CKD-EPI equation is validated in individuals 18 years of age and older. Currently the best equation for estimating glomerular filtration rate (GFR) from serum creatinine in children is the Bedside Vasquez equation. It is less accurate in patients with extremes of muscle mass, restriction of dietary protein, ingestion of creatine, extra-renal metabolism of creatinine, or treatment with medications that affect renal tubular creatinine secretion. Performed By: #### B MP3, HEMDF #### [facility] [address], [place] Glucose [Mass/Vol] 109 mg/dL High 70-100 [facility] Comment on above: Performed By: #### B MP3, HEMDF #### [facility] [address], [place] Urea nitrogen [Mass/Vol] 17 mg/dL Normal 7-20 [facility] Comment on above: Performed By: #### B DANNA3, HEMDF #### [facility] [address], [place] Chloride [Moles/Vol] 99 mmol/L Normal 98-107 [facility] Comment on above: Performed By: #### B MP3, HEMDF #### [facility] [address], [place] Potassium [Moles/Vol] 3.9 mmol/L Normal 3.5-5.1 [facility] Comment on above: Performed By: #### Sana MP3, HEMDF #### [facility] [address], [place] Sodium [Moles/Vol] 134 mmol/L Low 135-145 [facility] Comment on above: Performed By: #### B MP3, HEMDF #### [place] [address], [place] Anion gap [Moles/Vol] 5 mmol/L [facility] [place], [place] Calcium [Mass/Vol] 8.2 mg/dL Low 8.4 - 10. 4 mg/dL [facility], [place] Chloride [Moles/Vol] 99 mmol/L 98 - 10 7 mmol/L [facility], [place] CO2 [Moles/Vol] 30 mmol/L 22 - 30 mmol/L [facility] Creatinine [Mass/Vol] 0.69 mg/dL 0.52 - 1.25 mg/dL [place], [place] EGFR IF NonAfrican Wallisian >90.0 >60 mL/min [place], [place] Comment on above: KDIGO guidelines pro vide the following GFR categories: Stage GFR(ml/min/1.73 m2) Terms G1 >=90 Normal or high G2 60-89 Mildly decreased* G3a 45-59 Mildly to moderately decreased G3b 30-44 Moderately to severely decreased G4 15-29 Severely decreased G5 <15 Kidney failure *Relative to young adult level. In the absence of evidence of kidney damage, neither GFR category G1 nor G2 fulfill the criteria for CKD. The CKD-EPI equation is validated in individuals 18 years of age and older. Currently the best equation for estimating glomerular filtration rate (GFR) from serum creatinine in children is the Bedside Vasquez equation. It is less accurate in patients with extremes of muscle mass, restriction of dietary protein, ingestion of creatine, extra-renal metabolism of creatinine, or treatment with medications that affect renal tubular creatinine secretion. GFR/1.73 sq M predicted among blacks MDRD (S/P/Bld) [Vol rate/Area] mL/min/{1.73_m2} >60 mL/min [place], [place] Glucose [Mass/Vol] 109 mg/dL High 70 - 100 mg/dL [place] Interpretation and review of laboratory results Abnormal [place] Potassium [Moles/Vol] 3.9 mmol/L 3.5 - 5.1 mmol/L [place] Sodium [Moles/Vol] 134 mmol/L Low 135 - 145 mmol/L [place] Urea nitrogen [Mass/Vol] 17 mg/dL 7 - 20 mg/dL [place] Test Performed by [facility], [address] [place] [id number] [place], [place] CBC auto differentialon 12-3 Absolute Baso # 0.0 10*3/uL 0 - 0.2 10*3/uL [place] Absolute Neut # 6.4 10*3/uL 1.8 - 7 10*3/uL [place] Basophils/100 WBC (Bld) 0.1 % 0 - 2 % [place] Eosinophils (Bld) [#/Vol] 0.2 10*3/uL 0 - 0.5 10*3/uL [place] Eosinophils/100 WBC (Bld) 2.2 % 1 - 6 % [place] Erythrocyte distribution width (RBC) [Ratio] 14.8 % High 11.5 - 14.5 % [place] Granulocytes/100 WBC (Bld) 83.2 % High 40 - 80 % [place] Hematocrit (Bld) [Volume fraction] 32.5 % Low 40 - 52 % [place] Hemoglobin (Bld) [Mass/Vol] 10.7 g/dL Low 13 - 18 g/dL [place] Interpretation and review of laboratory results Abnormal [place] Lymphocytes (Bld) [#/Vol] 0.5 10*3/uL Low 1 - 4.3 10*3/uL [place] Lymphocytes/100 WBC (Bld) 6.8 % Low 20 - 40 % [place] MCH (RBC) [Entitic mass] 29.3 pg 26 - 34 pg [place] MCHC (RBC) [Mass/Vol] 33.0 % 32 - 36 % [place], [place] MCV (RBC) [Entitic vol] 88.7 fL 80 - 98 fL [place] Monocytes (Bld) [#/Vol] 0.6 10*3/uL 0 - 0.8 10*3/uL [place] Monocytes/100 WBC (Bld) 7.7 % 2 - 10 % [place] Platelet mean volume (Bld) [Entitic vol] 6.7 fL Low 7.4 - 10.4 fL [place] Platelets (Bld) [#/Vol] 299 10*3/uL 140 - 440 10*3/uL [place] RBC (Bld) [#/Vol] 3.66 10*6/uL Low 4.4 - 5.9 10*6/uL [place] WBC (Bld) [#/Vol] 7.7 10*3/uL 3.6 - 10.7 10*3/uL [facility] Test Performed by [facility], [address] [place] [id number] [facility], [place] CR Chest Portableon 02-29-20 20 CR Chest Portable Patient Name: OSWALDO CORLEY Diagnostic Radiology ACCESSION EXAM DATE/TIME PROCEDURE ORDERING PROVIDER [id number] 02/29/2020 05:57 EST CR Chest Portable MD SULLIVAN MAZEN E CPT code 66845 Reason For Exam (CR Chest Portable) sob Report PORTABLE CHEST Clinical indication: sob Comparison: 02/28/2020. There are two chest tubes present on the left without change in position. Small left pneumothorax is similar to the previous exam. Sternotomy wires and surgical clips from cardiac surgery are noted. The cardiac silhouette is not enlarged. There is mild atelectasis at the left lung base. No pleural effusions are noted. IMPRESSION: Small left pneumothorax without significant change Mild atelectasis left lung base Report Dictated on Final Dictated: 02/29/2020 7:24 am Dictating Physician: MD RICHMOND DIANE Signed Date and Time: 02/29/2020 7:26 am Signed by: MD RICHMOND DIANE Transcribed Date and Time: 02/29/2020 7:24 Normal [facility] Hemogram w/ Autodiffon 02-28 Abs Baso Cnt 0.0 10*3/uL Normal 0.0-0.2 [facility] Comment on above: Performed By: #### B MP3, HEMDF #### [address] Abs Neutrophile Cnt 6.4 10*3/uL Normal 1.8-7.0 [facility] Comment on above: Performed By: #### B MP3, HEMDF #### [address] [address] Basophils/100 WBC (Bld) 0.1 % Normal 0.0-2.0 [facility] Comment on above: Performed By: #### B MP3, HEMDF #### [address] [place] [address] Eosinophils (Bld) [#/Vol] 0.2 10*3/uL Normal 0.0-0.5 [facility] Comment on above: Performed By: #### B MP3, HEMDF #### [facility] [address] [place] [address] Eosinophils/100 WBC (Bld) 2.2 % Normal 1.0-6.0 [facility] Comment on above: Performed By: #### B MP3, HEMDF #### [place] [address] [place] [address] Erythrocyte distribution width (RBC) [Ratio] 14.8 % High 11.5-14.5 [facility] Comment on above: Performed By: #### B MP3, HEMDF #### [place] [address] [place] [address] Granulocytes/100 WBC (Bld) 83.2 % High 40.0-80.0 [facility] Comment on above: Performed By: #### B MP3, HEMDF #### [place] [address] [place] [address] Hematocrit (Bld) [Volume fraction] 32.5 % Low 40.0-52.0 [facility] Comment on above: Performed By: #### B MP3, HEMDF #### [place] [address] [place] [address] Hemoglobin (Bld) [Mass/Vol] 10.7 g/dL Low 13.0-18.0 [facility] Comment on above: Performed By: #### B MP3, HEMDF #### [place] [address] [place] [address] Lymphocytes (Bld) [#/Vol] 0.5 10*3/uL Low 1.0-4.3 [facility] Comment on above: Performed By: #### B MP3, HEMDF #### [place] [address] [place] [address] Lymphocytes/100 WBC (Bld) 6.8 % Low 20.0-40.0 [facility] Comment on above: Performed By: #### B MP3, HEMDF #### [facility] [address], [place] MCH (RBC) [Entitic mass] 29.3 pg Normal 26.0-34.0 [facility] Comment on above: Performed By: #### B MP3, HEMDF #### [facility] [address] [place], [place] MCHC (RBC) [Mass/Vol] 33.0 % Normal 32.0-36.0 [facility] Comment on above: Performed By: #### B MP3, HEMDF #### [place] [address] [place], [place] MCV (RBC) [Entitic vol] 88.7 fL Normal 80.0-98.0 [facility] Comment on above: Performed By: #### B MP3, HEMDF #### [place] [address] [place], [place] Monocytes (Bld) [#/Vol] 0.6 10*3/uL Normal 0.0-0.8 [facility] Comment on above: Performed By: #### B MP3, HEMDF #### [place] [address] [place], [place] Monocytes/100 WBC (Bld) 7.7 % Normal 2.0-10.0 [facility] Comment on above: Performed By: #### B MP3, HEMDF #### [facility] [address], [place] Platelet mean volume (Bld) [Entitic vol] 6.7 fL Low 7.4-10.4 [facility] Comment on above: Performed By: #### B MP3, HEMDF #### [place] [address] [place], [place] Platelets (Bld) [#/Vol] 299 10*3/uL Normal 140-440 [facility] Comment on above: Performed By: #### B MP3, HEMDF #### [place] [address] [place], [place] RBC (Bld) [#/Vol] 3.66 10*6/uL Low 4.40-5.90 [facility] Comment on above: Performed By: #### B MP3, HEMDF #### [facility] [address] [place] [address] WBC (Bld) [#/Vol] 7.7 10*3/uL Normal 3.6-10.7 [facility] Comment on above: Performed By: #### B MP3, HEMDF #### [facility] [address] [place] [address] XR CHEST PORTABLEon 02-29-20 [place], [facility] Incoming Radiology Results From [facility] - 02/29/2020 7:27 AM EST Patient Name: OSWALDO CORLEY Diagnostic Radiology ACCESSION EXAM DATE/TIME PROCEDURE ORDERING PROVIDER [id number] 02/29/2020 05:57 EST CR Chest Portable MD SULLIVAN MAZEN E CPT code 91565 Reason For Exam (CR Chest Portable) sob Report PORTABLE CHEST Clinical indication: sob Comparison: 02/28/2020. There are two chest tubes present on the left without change in position. Small left pneumothorax is similar to the previous exam. Sternotomy wires and surgical clips from cardiac surgery are noted. The cardiac silhouette is not enlarged. There is mild atelectasis at the left lung base. No pleural effusions are noted. IMPRESSION: Small left pneumothorax without significant change Mild atelectasis left lung base Report Dictated on --- Final --- Dictated: 02/29/2020 7:24 am Dictating Physician: MD RICHMOND DIANE Signed Date and Time: 02/29/2020 7:26 am Signed by: MD RICHMOND DIANE Transcribed Date and Time: 02/29/2020 7:24 [facility] Patient Name: OSWALDO CORLEY Diagnostic Radiology ACCESSION EXAM DATE/TIME PROCEDURE ORDERING PROVIDER [id number] 02/29/2020 05:57 EST CR Chest Portable MD SULLIVAN MAZEN E CPT code 09835 Reason For Exam (CR Chest Portable) sob Report PORTABLE CHEST Clinical indication: sob Comparison: 02/28/2020. There are two chest tubes present on the left without change in position. Small left pneumothorax is similar to the previous exam. Sternotomy wires and surgical clips from cardiac surgery are noted. The cardiac silhouette is not enlarged. There is mild atelectasis at the left lung base. No pleural effusions are noted. IMPRESSION: Small left pneumothorax without significant change Mild atelectasis left lung base Report Dictated on --- Final --- Dictated: 02/29/2020 7:24 am Dictating Physician: MD RICHMOND DIANE Signed Date and Time: 02/29/2020 7:26 am Signed by: MD RICHMOND DIANE Transcribed Date and Time: 02/29/2020 7:24 [place], [place] Basic Metabolic Panelon 01-31 Anion gap [Moles/Vol] 6 Normal [facility] Comment on above: Performed By: #### H IJEOMA BMP3 #### [facility] [address] [place], [place] Calcium [Mass/Vol] 8.4 mg/dL Normal 8.4-10.4 [facility] Comment on above: Performed By: #### H IJEOMA BMP3 #### [facility] [address] [place], [place] CO2 [Moles/Vol] 29 mmol/L Normal 22-30 [facility] Comment on above: Performed By: #### H IJEOMA BMP3 #### [facility] [address] [place], [place] Glucose [Mass/Vol] 104 mg/dL High 70-100 [facility] Comment on above: Performed By: #### H IJEOMA BMP3 #### [facility] [address] [place], [place] Urea nitrogen [Mass/Vol] 15 mg/dL Normal 7-20 [facility] Comment on above: Performed By: #### H EMDF BMP3 #### [facility] [address] [place], [place] Creatinine [Mass/Vol] 0.66 mg/dL Normal 0.52-1.25 [facility] Comment on above: Performed By: #### H IJEOMA BMP3 #### [facility] [address] [place] [address] GFR/1.73 sq M predicted among blacks MDRD (S/P/Bld) [Vol rate/Area] mL/min/{1.73_m2} Normal >60 [facility] Comment on above: Performed By: #### H IJEOMA BMP3 #### [facility] [address] [place] [address] GFR/1.73 sq M predicted among non-blacks MDRD (S/P/Bld) [Vol rate/Area] mL/min/{1.73_m2} Normal >60 [facility] Comment on above: Result Comment: KDIG O guidelines provide the following GFR categories: Stage GFR(ml/min/1.73 m2) Terms G1 >=90 Normal or high G2 60-89 Mildly decreased* G3a 45-59 Mildly to moderately decreased G3b 30-44 Moderately to severely decreased G4 15-29 Severely decreased G5 <15 Kidney failure *Relative to young adult level. In the absence of evidence of kidney damage, neither GFR category G1 nor G2 fulfill the criteria for CKD. The CKD-EPI equation is validated in individuals 18 years of age and older. Currently the best equation for estimating glomerular filtration rate (GFR) from serum creatinine in children is the Bedside Vasquez equation. It is less accurate in patients with extremes of muscle mass, restriction of dietary protein, ingestion of creatine, extra-renal metabolism of creatinine, or treatment with medications that affect renal tubular creatinine secretion. Performed By: #### H IJEOMA BMP3 #### [facility] [address] [place], [place] Chloride [Moles/Vol] 98 mmol/L Normal 98-107 [facility] Comment on above: Performed By: #### H IJEOMA BMP3 #### [place] [address] [place], [place] Potassium [Moles/Vol] 3.9 mmol/L Normal 3.5-5.1 [facility] Comment on above: Performed By: #### H IJEOMA BMP3 #### [place] [address] [place], [place] Sodium [Moles/Vol] 133 mmol/L Low 135-145 [facility] Comment on above: Performed By: #### H [facility] #### [facility] [address] [facility] [place] Anion gap [Moles/Vol] 6 mmol/L [place] Calcium [Mass/Vol] 8.4 mg/dL 8.4 - 10. 4 mg/dL [place] Chloride [Moles/Vol] 98 mmol/L 98 - 10 7 mmol/L [place] CO2 [Moles/Vol] 29 mmol/L 22 - 30 mmol/L [place] Creatinine [Mass/Vol] 0.66 mg/dL 0.52 - 1.25 mg/dL [place] EGFR IF NonAfrican [place] >90.0 >60 mL/min [place] Comment on above: KDIGO guidelines pro vide the following GFR categories: Stage GFR(ml/min/1.73 m2) Terms G1 >=90 Normal or high G2 60-89 Mildly decreased* G3a 45-59 Mildly to moderately decreased G3b 30-44 Moderately to severely decreased G4 15-29 Severely decreased G5 <15 Kidney failure *Relative to young adult level. In the absence of evidence of kidney damage, neither GFR category G1 nor G2 fulfill the criteria for CKD. The CKD-EPI equation is validated in individuals 18 years of age and older. Currently the best equation for estimating glomerular filtration rate (GFR) from serum creatinine in children is the Bedside Vasquez equation. It is less accurate in patients with extremes of muscle mass, restriction of dietary protein, ingestion of creatine, extra-renal metabolism of creatinine, or treatment with medications that affect renal tubular creatinine secretion. GFR/1.73 sq M predicted among blacks MDRD (S/P/Bld) [Vol rate/Area] mL/min/{1.73_m2} >60 mL/min [place] Glucose [Mass/Vol] 104 mg/dL High 70 - 100 mg/dL [place] Interpretation and review of laboratory results Abnormal [place] Potassium [Moles/Vol] 3.9 mmol/L 3.5 - 5.1 mmol/L [place] Sodium [Moles/Vol] 133 mmol/L Low 135 - 145 mmol/L [place] Urea nitrogen [Mass/Vol] 15 mg/dL 7 - 20 mg/dL [place] Test Performed by [facility], [address] [place] [address] [place], [place] CBC auto differentialon - Absolute Baso # 0.0 10*3/uL 0 - 0.2 10*3/uL [place] Absolute Neut # 6.1 10*3/uL 1.8 - 7 10*3/uL [place] Basophils/100 WBC (Bld) 0.4 % 0 - 2 % [place] Eosinophils (Bld) [#/Vol] 0.2 10*3/uL 0 - 0.5 10*3/uL [place] Eosinophils/100 WBC (Bld) 2.3 % 1 - 6 % [place] Erythrocyte distribution width (RBC) [Ratio] 14.8 % High 11.5 - 14.5 % [place] Granulocytes/100 WBC (Bld) 83.4 % High 40 - 80 % [place] Hematocrit (Bld) [Volume fraction] 32.4 % Low 40 - 52 % [place] Hemoglobin (Bld) [Mass/Vol] 10.6 g/dL Low 13 - 18 g/dL [place] Interpretation and review of laboratory results Abnormal [place] Lymphocytes (Bld) [#/Vol] 0.5 10*3/uL Low 1 - 4.3 10*3/uL [place] Lymphocytes/100 WBC (Bld) 7.1 % Low 20 - 40 % [place] MCH (RBC) [Entitic mass] 29.3 pg 26 - 34 pg [place] MCHC (RBC) [Mass/Vol] 32.8 % 32 - 36 % [place] MCV (RBC) [Entitic vol] 89.3 fL 80 - 98 fL [place] Monocytes (Bld) [#/Vol] 0.5 10*3/uL 0 - 0.8 10*3/uL [place] Monocytes/100 WBC (Bld) 6.8 % 2 - 10 % [place] Platelet mean volume (Bld) [Entitic vol] 6.7 fL Low 7.4 - 10.4 fL [place] Platelets (Bld) [#/Vol] 267 10*3/uL 140 - 440 10*3/uL [place] RBC (Bld) [#/Vol] 3.63 10*6/uL Low 4.4 - 5.9 10*6/uL [place] WBC (Bld) [#/Vol] 7.4 10*3/uL 3.6 - 10.7 10*3/uL [place] Test Performed by [facility], [address] [place] [address] [place], [place] CR Chest Portableon 02-28-20 20 CR Chest Portable [facility]: [id number] Radiology ACCESSION EXAM DATE/TIME PROCEDURE ORDERING PROVIDER [id number] 02/28/2020 03:59 EST CR Chest Portable MD SULLIVAN MAZEN E CPT code 38085 Reason For Exam (CR Chest Portable) sob Report CHEST - PORTABLE: CLINICAL INDICATION: Shortness of breath TECHNIQUE: Portable AP COMPARISON: One day ago FINDINGS: Life support devices: Left chest tubes are again noted Heart/Mediastinum: Heart size is normal. Is uncoiling of aorta Lungs/Pleura: Ill-defined opacity at the left lung base is likely atelectasis. There is a very small left pneumothorax. Minor atelectasis is noted at the right base. Minor blunting of the right costophrenic angle likely represents pleural fluid. IMPRESSION: Left chest tubes with a very small left pneumothorax. Atelectasis at lung bases. Report Dictated on Workstation: [id number] Final Dictated: 02/28/2020 4:24 am Dictating Physician: MD ESPINO JEFFREY Signed Date and Time: 02/28/2020 4:26 am Signed by: MD ESPINO JEFFREY Transcribed Date and Time: 02/28/2020 4:24 Normal [facility] Hemogram w/ Autodiffon 02-27 Abs Baso Cnt 0.0 10*3/uL Normal 0.0-0.2 [facility] Comment on above: Performed By: #### H IJEOMA BMP3 #### [facility] [address] [place] [address] Abs Neutrophile Cnt 6.1 10*3/uL Normal 1.8-7.0 [facility] Comment on above: Performed By: #### H EMDYuri BMP3 #### [facility] [address] [place] [address] Basophils/100 WBC (Bld) 0.4 % Normal 0.0-2.0 [facility] Comment on above: Performed By: #### H EMDYuri BMP3 #### [place] [address] [place] [address] Eosinophils (Bld) [#/Vol] 0.2 10*3/uL Normal 0.0-0.5 [facility] Comment on above: Performed By: #### H EMDYuri BMP3 #### [place] [address] [place] [address] Eosinophils/100 WBC (Bld) 2.3 % Normal 1.0-6.0 [facility] Comment on above: Performed By: #### H EMDYuri BMP3 #### [place] [address] [place] [address] Erythrocyte distribution width (RBC) [Ratio] 14.8 % High 11.5-14.5 [facility] Comment on above: Performed By: #### H EMDF, BMP3 #### [facility] [address] [place] [address] Granulocytes/100 WBC (Bld) 83.4 % High 40.0-80.0 [facility] Comment on above: Performed By: #### H EMDF, BMP3 #### [place] [address] [place] [address] Hematocrit (Bld) [Volume fraction] 32.4 % Low 40.0-52.0 [facility] Comment on above: Performed By: #### H EMDF, BMP3 #### [facility] [address] [place], [place] Hemoglobin (Bld) [Mass/Vol] 10.6 g/dL Low 13.0-18.0 [facility] Comment on above: Performed By: #### H EMDF, BMP3 #### [facility] [address] [place], [place] Lymphocytes (Bld) [#/Vol] 0.5 10*3/uL Low 1.0-4.3 [facility] Comment on above: Performed By: #### H EMDF, BMP3 #### [place] [address] [place], [place] Lymphocytes/100 WBC (Bld) 7.1 % Low 20.0-40.0 [facility] Comment on above: Performed By: #### H EMDF, BMP3 #### [place] [address] [address] [place], [place] MCH (RBC) [Entitic mass] 29.3 pg Normal 26.0-34.0 [facility] Comment on above: Performed By: #### H EMDF, BMP3 #### [place] [address] [address] [place], [place] MCHC (RBC) [Mass/Vol] 32.8 % Normal 32.0-36.0 [facility] Comment on above: Performed By: #### H EMDF, BMP3 #### [facility] [address] [place], [place] MCV (RBC) [Entitic vol] 89.3 fL Normal 80.0-98.0 [facility] Comment on above: Performed By: #### H EMDF, BMP3 #### [place] [address] [address] [place], [place] Monocytes (Bld) [#/Vol] 0.5 10*3/uL Normal 0.0-0.8 [facility] Comment on above: Performed By: #### H EMDF, BMP3 #### [place] [address] [place], [place] Monocytes/100 WBC (Bld) 6.8 % Normal 2.0-10.0 [facility] Comment on above: Performed By: #### RENETTA TO3 #### [address] Platelet mean volume (Bld) [Entitic vol] 6.7 fL Low 7.4-10.4 [facility] Comment on above: Performed By: #### RENETTA TO3 #### [address] Platelets (Bld) [#/Vol] 267 10*3/uL Normal 140-440 [facility] Comment on above: Performed By: #### RENETTA TO3 #### [address] RBC (Bld) [#/Vol] 3.63 10*6/uL Low 4.40-5.90 [facility] Comment on above: Performed By: #### RENETTA TO3 #### [address] WBC (Bld) [#/Vol] 7.4 10*3/uL Normal 3.6-10.7 [facility] Comment on above: Performed By: #### RENETTA TO3 #### [address] Surgical Pathologyon 020 Sodium [Moles/Vol] SEE BELOW [place] [address] [id number] [facility]ICINE [address] [place] [address] FINAL SURGICAL PATHOLOGY REPORT NAME: OSWALDO CORLEY : 1940 79 Y M BILLING NO.: [id number] LOCATION: [id number] PROCEDURE 02/20/2020 DATE: SURGEON: OLIVERIO HERRMANN M.D. RECEIVED 02/20/2020 DATE: ATTENDING: OLIVERIO HERRMANN M.D. REPORT DATE: 02/28/2020 COPIES TO: DIAGNOSIS: A. 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 Comment: Deeper levels on the frozen section and additional permanent sections showed squamous cell carcinoma focally extending to inked parenchymal margin. Results discussed with Dr. Herrmann via Perfect Serve on 02/28/2020. B. PLEURA, BIOPSY - FIBROUS TISSUE WITH HEMORRHAGE AND BACKGROUND BLOOD CLOT. NEGATIVE FOR MALIGNANCY. SPECIMEN Procedure: Wedge resection Specimen Laterality: Left TUMOR Tumor Site: Lower lobe of lung Histologic Type: Invasive squamous cell carcinoma, keratinizing Histologic Grade: G2: Moderately differentiated Spread Through Air Spaces (NICK): Not identified Total Tumor Size (size of entire tumor): Greatest Dimension (Centimeters) - 1.1 x 0.9 x 0.8 cm Size of Invasive Component: Greatest Dimension (Centimeters) - 1.1 cm Tumor Focality: Single focus Visceral Pleura Invasion: Not identified Direct Invasion of Adjacent Structures: No adjacent structures present Treatment Effect: No known presurgical therapy Lymphovascular Invasion: Not identified MARGINS Bronchial Margin: Not applicable Vascular Margin: Not applicable Parenchymal Margin: Positive for invasive carcinoma LYMPH NODES Regional Lymph Nodes: No lymph nodes submitted or found PATHOLOGIC STAGE CLASSIFICATION (pTNM, AJCC 8th Edition) Note: Reporting of pT, pN, and (when applicable) pM categories is based on information available to the pathologist at the time the report is issued. As per the AJCC (Chapter 1, 8th Ed.) it is the managing physician's responsibility to establish the final pathologic stage based upon all pertinent information, including but potentially not limited to this pathology report. Primary Tumor (pT): pT1b Regional Lymph Nodes (pN): pNX BOOKING AGENT TUMOR BLOCK(S): A1, A6, A7 CRH/CRH Signature> JASMIN BAZAN M.D. CLINICAL INFORMATION: J90 SPECIMEN: (A) LUNG, WEDGE BIOPSY/EXCISION (B) PLEURA INTRAOPERATIVE CONSULTATION/FROZEN SECTION DIAGNOSIS: FROZEN SECTION DIAGNOSIS: FSA1: Left lower lobe - Squamous cell carcinoma, 1 mm from inked margin on section frozen. Pascual Leung M.D., Lois Bazan M.D. GROSS DESCRIPTION: A. Received fresh for intraoperative consultation and labeled left lower lobe is a red-darling wedge of lung which measures 8.7 x 6.2 x 2.1 cm. Stapled suture line is removed and the margin is inked blue. A darling-greene mass which measures 1.1 x 0.9 x 0.8 cm is present adjacent to parenchymal margin. Frozen section is performed and the remainder of the frozen section is submitted in A1. Further examining the specimen reveals brown-darling and spongy cut surfaces with areas of hemorrhage. Additional videotape sales representative sections are submitted. Cassette Summary: A1- remainder of frozen section, A2- section with area of hemorrhage, A3- margin, A4-5- additional sections that include the parenchymal margin. After review of initial slides, additional sections of lung including parenchymal margin and mass are submitted in cassettes A6-8. A9 contains another section of somewhat firm lung tissue. B. Received in formalin and labeled pleura are multiple fragments of brown-darling tissue that aggregate to 5 x 4 x 1.8 cm. The specimen is consistent with multiple fragments of pleura. The fragments are soft and muddy in texture. Sectioning through reveals no gross lesions. Multiple videotape sales representative sections are submitted in two cassettes. CRH/CRH Disclaimer: The following statement applies to all immunohistochemistry, in situ hybridization, molecular studies, and immunofluorescence testing. The use of one or more reagents in the above tests is regulated as an analyte specific reagent (ASR). These tests were developed and their performance characteristics determined by the clinical laboratories of [facility]. They have not been cleared by the US Food and Drug Administration (FDA). The FDA has determined that such clearance or approval is not necessary. All the above immunostains were performed on paraffin embedded tissue. Appropriate positive and negative controls (where applicable) were run in parallel with the patient's specimen; these controls showed expected staining pattern, with acceptable intensity of staining. Immunohistochemical assays have not been validated on decalcified tissues. Results should be interpreted with caution given the raised possibility of false negativity on decalcified specimens. Professional Performing Location: [place] [address]. DEPARTMENT OF PATHOLOGY AND LABORATORY MEDICINE [place], [place] [address] [place], [place] XR CHEST PORTABLEon 02-28-20 Patient Name: OSWALDO CORLEY Diagnostic Radiology ACCESSION EXAM DATE/TIME PROCEDURE ORDERING PROVIDER [id number] 02/28/2020 03:59 EST CR Chest Portable MD SULLIVAN MAZEN E CPT code 13132 Reason For Exam (CR Chest Portable) sob Report CHEST - PORTABLE: CLINICAL INDICATION: Shortness of breath TECHNIQUE: Portable AP COMPARISON: One day ago FINDINGS: Life support devices: Left chest tubes are again noted Heart/Mediastinum: Heart size is normal. Is uncoiling of aorta Lungs/Pleura: Ill-defined opacity at the left lung base is likely atelectasis. There is a very small left pneumothorax. Minor atelectasis is noted at the right base. Minor blunting of the right costophrenic angle likely represents pleural fluid. IMPRESSION: Left chest tubes with a very small left pneumothorax. Atelectasis at lung bases. Report Dictated on Workstation: [id number] --- Final --- Dictated: 02/28/2020 4:24 am Dictating Physician: MD ESPINO JEFFREY Signed Date and Time: 02/28/2020 4:26 am Signed by: MD ESPINO JEFFREY Transcribed Date and Time: 02/28/2020 4:24 [facility] Incoming Radiology Results From [facility] 02/28/2020 4:27 AM EST Patient Name: [id number] Diagnostic Radiology ACCESSION EXAM DATE/TIME PROCEDURE ORDERING PROVIDER [id number] 02/28/2020 03:59 EST CR Chest Portable MD SULLIVAN MAZEN E CPT code 30115 Reason For Exam (CR Chest Portable) sob Report CHEST - PORTABLE: CLINICAL INDICATION: Shortness of breath TECHNIQUE: Portable AP COMPARISON: One day ago FINDINGS: Life support devices: Left chest tubes are again noted Heart/Mediastinum: Heart size is normal. Is uncoiling of aorta Lungs/Pleura: Ill-defined opacity at the left lung base is likely atelectasis. There is a very small left pneumothorax. Minor atelectasis is noted at the right base. Minor blunting of the right costophrenic angle likely represents pleural fluid. IMPRESSION: Left chest tubes with a very small left pneumothorax. Atelectasis at lung bases. Report Dictated on Workstation: [id number] --- Final --- Dictated: 02/28/2020 4:24 am Dictating Physician: MD ESPINO JEFFREY Signed Date and Time: 02/28/2020 4:26 am Signed by: MD ESPINO JEFFREY Transcribed Date and Time: 02/28/2020 4:24 [facility], [place] Basic Metabolic Panelon 12-2 Anion gap [Moles/Vol] 1 Normal [facility] Comment on above: Performed By: #### H IJEOMA BMP3 #### [facility] [address] [place] [address] Calcium [Mass/Vol] 8.4 mg/dL Normal 8.4-10.4 [facility] Comment on above: Performed By: #### H IJEOMA BMP3 #### [facility] [address] [place] [address] CO2 [Moles/Vol] 34 mmol/L High 22-30 [facility] Comment on above: Performed By: #### H IJEOMA BMP3 #### [facility] [address] [place] [address] Glucose [Mass/Vol] 111 mg/dL High 70-100 [facility] Comment on above: Performed By: #### H IJEOMA BMP3 #### [facility] [address] [place] [address] Urea nitrogen [Mass/Vol] 15 mg/dL Normal 7-20 [facility] Comment on above: Performed By: #### H TRICEF, BMP3 #### [facility] [address] [place] [address] Creatinine [Mass/Vol] 0.72 mg/dL Normal 0.52-1.25 [facility] Comment on above: Performed By: #### H IJEOMA BMP3 #### [place] [address] [place] [address] GFR/1.73 sq M predicted among blacks MDRD (S/P/Bld) [Vol rate/Area] mL/min/{1.73_m2} Normal >60 [facility] Comment on above: Performed By: #### H IJEOMA BMP3 #### [place] [address] [place] [address] GFR/1.73 sq M predicted among non-blacks MDRD (S/P/Bld) [Vol rate/Area] 89.6 mL/min/{1.73_m2} Normal >60 [facility] Comment on above: Result Comment: KDIG O guidelines provide the following GFR categories: Stage GFR(ml/min/1.73 m2) Terms G1 >=90 Normal or high G2 60-89 Mildly decreased* G3a 45-59 Mildly to moderately decreased G3b 30-44 Moderately to severely decreased G4 15-29 Severely decreased G5 <15 Kidney failure *Relative to young adult level. In the absence of evidence of kidney damage, neither GFR category G1 nor G2 fulfill the criteria for CKD. The CKD-EPI equation is validated in individuals 18 years of age and older. Currently the best equation for estimating glomerular filtration rate (GFR) from serum creatinine in children is the Bedside Vasquez equation. It is less accurate in patients with extremes of muscle mass, restriction of dietary protein, ingestion of creatine, extra-renal metabolism of creatinine, or treatment with medications that affect renal tubular creatinine secretion. Performed By: #### H IJEOMA BMP3 #### [facility] [address] [place], [place] Chloride [Moles/Vol] 98 mmol/L Normal 98-107 [facility] Comment on above: Performed By: #### H RENETTA RAPHAEL3 #### [facility] [address] [place], [place] Potassium [Moles/Vol] 4.4 mmol/L Normal 3.5-5.1 [facility] Comment on above: Performed By: #### H RENETTA RAPHAEL3 #### [facility] [address] [place], [place] Sodium [Moles/Vol] 133 mmol/L Low 135-145 [facility] Comment on above: Performed By: #### H RENETTA RAPHAEL3 #### [facility] [address] [place], [place] Anion gap [Moles/Vol] 1 mmol/L [place], [place] Calcium [Mass/Vol] 8.4 mg/dL 8.4 - 10. 4 mg/dL [place], [place] Chloride [Moles/Vol] 98 mmol/L 98 - 10 7 mmol/L [place] CO2 [Moles/Vol] 34 mmol/L High 22 - 30 mmol/L [place] Creatinine [Mass/Vol] 0.72 mg/dL 0.52 - 1.25 mg/dL [place] EGFR IF NonAfrican [place]isian 89.6 mL/min >60 [place] Comment on above: KDIGO guidelines pro vide the following GFR categories: Stage GFR(ml/min/1.73 m2) Terms G1 >=90 Normal or high G2 60-89 Mildly decreased* G3a 45-59 Mildly to moderately decreased G3b 30-44 Moderately to severely decreased G4 15-29 Severely decreased G5 <15 Kidney failure *Relative to young adult level. In the absence of evidence of kidney damage, neither GFR category G1 nor G2 fulfill the criteria for CKD. The CKD-EPI equation is validated in individuals 18 years of age and older. Currently the best equation for estimating glomerular filtration rate (GFR) from serum creatinine in children is the Bedside Vasquez equation. It is less accurate in patients with extremes of muscle mass, restriction of dietary protein, ingestion of creatine, extra-renal metabolism of creatinine, or treatment with medications that affect renal tubular creatinine secretion. GFR/1.73 sq M predicted among blacks MDRD (S/P/Bld) [Vol rate/Area] mL/min/{1.73_m2} >60 mL/min [place], [place] Glucose [Mass/Vol] 111 mg/dL High 70 - 100 mg/dL [place] Interpretation and review of laboratory results Abnormal [place] Potassium [Moles/Vol] 4.4 mmol/L 3.5 - 5.1 mmol/L [place] Sodium [Moles/Vol] 133 mmol/L Low 135 - 145 mmol/L [place] Urea nitrogen [Mass/Vol] 15 mg/dL 7 - 20 mg/dL [place] Test Performed by [facility], [address] [place] [address] [place], [place] CBC auto differentialon 12-2 Absolute Baso # 0.0 10*3/uL 0 - 0.2 10*3/uL [place] Absolute Neut # 6.5 10*3/uL 1.8 - 7 10*3/uL [place] Basophils/100 WBC (Bld) 0.1 % 0 - 2 % [place] Eosinophils (Bld) [#/Vol] 0.2 10*3/uL 0 - 0.5 10*3/uL [place] Eosinophils/100 WBC (Bld) 2.2 % 1 - 6 % [place] Erythrocyte distribution width (RBC) [Ratio] 14.5 % 11.5 - 14.5 % [place] Granulocytes/100 WBC (Bld) 84.6 % High 40 - 80 % [place] Hematocrit (Bld) [Volume fraction] 35.3 % Low 40 - 52 % [place] Hemoglobin (Bld) [Mass/Vol] 11.6 g/dL Low 13 - 18 g/dL [place] Interpretation and review of laboratory results Abnormal [place] Lymphocytes (Bld) [#/Vol] 0.5 10*3/uL Low 1 - 4.3 10*3/uL [place] Lymphocytes/100 WBC (Bld) 6.1 % Low 20 - 40 % [place] MCH (RBC) [Entitic mass] 29.8 pg 26 - 34 pg [place] MCHC (RBC) [Mass/Vol] 32.9 % 32 - 36 % [place], [place] MCV (RBC) [Entitic vol] 90.5 fL 80 - 98 fL [place] Monocytes (Bld) [#/Vol] 0.5 10*3/uL 0 - 0.8 10*3/uL [place] Monocytes/100 WBC (Bld) 7.0 % 2 - 10 % [place] Platelet mean volume (Bld) [Entitic vol] 6.5 fL Low 7.4 - 10.4 fL [place] Platelets (Bld) [#/Vol] 282 10*3/uL 140 - 440 10*3/uL [place] RBC (Bld) [#/Vol] 3.90 10*6/uL Low 4.4 - 5.9 10*6/uL [place] WBC (Bld) [#/Vol] 7.7 10*3/uL 3.6 - 10.7 10*3/uL [place] Test Performed by [facility], [address] [place] [address] [place], [place] CR Chest Portableon 02-27-20 20 CR Chest Portable Patient Name: OSWALDO CORLEY Diagnostic Radiology ACCESSION EXAM DATE/TIME PROCEDURE ORDERING PROVIDER [id number] 02/27/2020 06:38 EST CR Chest Portable MD NATE, RODRICK Davila CPT code 49629 Reason For Exam (CR Chest Portable) sob Report Examination: Portable Chest, 0613 hours 02/27/2020. Comparison: 02/26/2020. Reason For Study: Shortness of breath. Findings: Cardiac silhouette is normal in size. 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 Small left pneumothorax is redemonstrated. Curvilinear opacities are present at both bases. Osseous structures appear intact. Support Devices: Thoracostomy tubes remain at the left apex and base. Conclusion(s): 1. Small left pneumothorax with no change. 2. Bibasilar subsegmental atelectasis. 3. Stable position of thoracostomy tubes. Report Dictated on Final Dictated: 02/27/2020 7:16 am Dictating Physician: MD GARCÍA B NELSON Signed Date and Time: 02/27/2020 7:19 am Signed by: MD GARCÍA B NELSON Transcribed Date and Time: 02/27/2020 7:16 Normal [facility] Hemogram w/ Autodiffon 02-26 Abs Baso Cnt 0.0 10*3/uL Normal 0.0-0.2 [facility] Comment on above: Performed By: #### H EMDF, BMP3 #### [facility] [address] [place] [address] Abs Neutrophile Cnt 6.5 10*3/uL Normal 1.8-7.0 [facility] Comment on above: Performed By: #### H EMDF, BMP3 #### [facility] [address] [place] [address] Basophils/100 WBC (Bld) 0.1 % Normal 0.0-2.0 [facility] Comment on above: Performed By: #### H EMDF, BMP3 #### [facility] [address] [place] [address] Eosinophils (Bld) [#/Vol] 0.2 10*3/uL Normal 0.0-0.5 [facility] Comment on above: Performed By: #### H EMDF, BMP3 #### [facility] [address] [place] [address] Eosinophils/100 WBC (Bld) 2.2 % Normal 1.0-6.0 [facility] Comment on above: Performed By: #### H EMDF, BMP3 #### [facility] [address] [place] [address] Erythrocyte distribution width (RBC) [Ratio] 14.5 % Normal 11.5-14.5 [facility] Comment on above: Performed By: #### H EMDF, BMP3 #### [facility] [address] [place] Granulocytes/100 WBC (Bld) 84.6 % High 40.0-80.0 [facility] Comment on above: Performed By: #### H EMDF, BMP3 #### [facility] [address] [place] Hematocrit (Bld) [Volume fraction] 35.3 % Low 40.0-52.0 [facility] Comment on above: Performed By: #### H EMDF, BMP3 #### [place] [address] [address] [place] Hemoglobin (Bld) [Mass/Vol] 11.6 g/dL Low 13.0-18.0 [facility] Comment on above: Performed By: #### H EMDF, BMP3 #### [place] [address] [place], [place] Lymphocytes (Bld) [#/Vol] 0.5 10*3/uL Low 1.0-4.3 [facility] Comment on above: Performed By: #### H EMDF, BMP3 #### [place] [address] [place] Lymphocytes/100 WBC (Bld) 6.1 % Low 20.0-40.0 [facility] Comment on above: Performed By: #### H EMDF, BMP3 #### [place] [address] [place] MCH (RBC) [Entitic mass] 29.8 pg Normal 26.0-34.0 [facility] Comment on above: Performed By: #### H EMDF, BMP3 #### [place] [address] [place] MCHC (RBC) [Mass/Vol] 32.9 % Normal 32.0-36.0 [facility] Comment on above: Performed By: #### H EMDF, BMP3 #### [place] [address] [place] MCV (RBC) [Entitic vol] 90.5 fL Normal 80.0-98.0 [facility] Comment on above: Performed By: #### H IJEOMA BMP3 #### [facility] [employer] [place] [address] [place], [place] Monocytes (Bld) [#/Vol] 0.5 10*3/uL Normal 0.0-0.8 [facility] Comment on above: Performed By: #### H IJEOMA BMP3 #### [facility] [employer] [place] [address] [place], [place] Monocytes/100 WBC (Bld) 7.0 % Normal 2.0-10.0 [facility] Comment on above: Performed By: #### H IJEOMA BMP3 #### [facility] [employer] [place] [address] [place], [place] Platelet mean volume (Bld) [Entitic vol] 6.5 fL Low 7.4-10.4 [facility] Comment on above: Performed By: #### H IJEOMA BMP3 #### [facility] [employer] [place] [address] [place], [place] Platelets (Bld) [#/Vol] 282 10*3/uL Normal 140-440 [facility] Comment on above: Performed By: #### H IJEOMA BMP3 #### [facility] [employer] [place] [address] [place], [place] RBC (Bld) [#/Vol] 3.90 10*6/uL Low 4.40-5.90 [facility] Comment on above: Performed By: #### H EMDYuri BMP3 #### [facility] [employer] [address] [place] WBC (Bld) [#/Vol] 7.7 10*3/uL Normal 3.6-10.7 [facility] Comment on above: Performed By: #### H EMDYuri BMP3 #### [facility] [employer] [address] XR CHEST PORTABLEon 02-27-20 20 [place], [facility] Incoming Radiology Results From [facility] - 02/27/2020 7:20 AM EST Patient Name: OSWALDO CORLEY Diagnostic Radiology ACCESSION EXAM DATE/TIME PROCEDURE ORDERING PROVIDER [id number] 02/27/2020 06:38 EST CR Chest Portable MD SULLIVAN MAZEN E CPT code 46026 Reason For Exam (CR Chest Portable) sob Report Examination: Portable Chest, 0613 hours 02/27/2020. Comparison: 02/26/2020. Reason For Study: Shortness of breath. Findings: Cardiac silhouette is normal in size. 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 Small left pneumothorax is redemonstrated. Curvilinear opacities are present at both bases. Osseous structures appear intact. Support Devices: Thoracostomy tubes remain at the left apex and base. Conclusion(s): 1. Small left pneumothorax with no change. 2. Bibasilar subsegmental atelectasis. 3. Stable position of thoracostomy tubes. Report Dictated on --- Final --- Dictated: 02/27/2020 7:16 am Dictating Physician: MD GARCÍA B NELSON Signed Date and Time: 02/27/2020 7:19 am Signed by: MD GARCÍA B NELSON Transcribed Date and Time: 02/27/2020 7:16 [place], [place] Patient Name: OSWALDO CORLEY Diagnostic Radiology ACCESSION EXAM DATE/TIME PROCEDURE ORDERING PROVIDER [id number] 02/27/2020 06:38 EST CR Chest Portable MD SULLIVAN MAZEN E CPT code 01537 Reason For Exam (CR Chest Portable) sob Report Examination: Portable Chest, 0613 hours 02/27/2020. Comparison: 02/26/2020. Reason For Study: Shortness of breath. Findings: Cardiac silhouette is normal in size. 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 Small left pneumothorax is redemonstrated. Curvilinear opacities are present at both bases. Osseous structures appear intact. Support Devices: Thoracostomy tubes remain at the left apex and base. Conclusion(s): 1. Small left pneumothorax with no change. 2. Bibasilar subsegmental atelectasis. 3. Stable position of thoracostomy tubes. Report Dictated on --- Final --- Dictated: 02/27/2020 7:16 am Dictating Physician: MD GARCÍA B NELSON Signed Date and Time: 02/27/2020 7:19 am Signed by: MD GARCÍA B NELSON Transcribed Date and Time: 02/27/2020 7:16 [facility] Basic Metabolic Panelon 12-2 Anion gap [Moles/Vol] 1 Normal [facility] Comment on above: Performed By: #### H IJEOMA BMP3 #### [facility] [address] [place], [place] Calcium [Mass/Vol] 8.2 mg/dL Low 8.4-10.4 [facility] Comment on above: Performed By: #### H IJEOMA BMP3 #### [facility] [address] [place], [place] CO2 [Moles/Vol] 31 mmol/L High 22-30 [facility] Comment on above: Performed By: #### H TRICEF BMP3 #### [facility] [address] [place], [place] Glucose [Mass/Vol] 111 mg/dL High 70-100 [facility] Comment on above: Performed By: #### H EMDF BMP3 #### [facility] [employer] [facility] [address] [place], [place] Urea nitrogen [Mass/Vol] 12 mg/dL Normal 7-20 [facility] Comment on above: Performed By: #### H EMDF, BMP3 #### [facility] [address] [place], [place] Creatinine [Mass/Vol] 0.70 mg/dL Normal 0.52-1.25 [facility] Comment on above: Performed By: #### H EMDF, BMP3 #### [facility] [address], [place] GFR/1.73 sq M predicted among blacks MDRD (S/P/Bld) [Vol rate/Area] mL/min/{1.73_m2} Normal >60 [facility] Comment on above: Performed By: #### H EMDF, BMP3 #### [facility] [address], [place] GFR/1.73 sq M predicted among non-blacks MDRD (S/P/Bld) [Vol rate/Area] mL/min/{1.73_m2} Normal >60 [facility] Comment on above: Result Comment: KDIG O guidelines provide the following GFR categories: Stage GFR(ml/min/1.73 m2) Terms G1 >=90 Normal or high G2 60-89 Mildly decreased* G3a 45-59 Mildly to moderately decreased G3b 30-44 Moderately to severely decreased G4 15-29 Severely decreased G5 <15 Kidney failure *Relative to young adult level. In the absence of evidence of kidney damage, neither GFR category G1 nor G2 fulfill the criteria for CKD. The CKD-EPI equation is validated in individuals 18 years of age and older. Currently the best equation for estimating glomerular filtration rate (GFR) from serum creatinine in children is the Bedside Vasquez equation. It is less accurate in patients with extremes of muscle mass, restriction of dietary protein, ingestion of creatine, extra-renal metabolism of creatinine, or treatment with medications that affect renal tubular creatinine secretion. Performed By: #### H RENETTA RAPHAEL3 #### [address] Chloride [Moles/Vol] 99 mmol/L Normal 98-107 [facility] Comment on above: Performed By: #### H RENETTA RAPHAEL3 #### [address] Potassium [Moles/Vol] 4.5 mmol/L Normal 3.5-5.1 [facility] Comment on above: Performed By: #### H RENETTA RAPHAEL3 #### [address] [address] [address] [place], [place] Sodium [Moles/Vol] 132 mmol/L Low 135-145 [facility] Comment on above: Performed By: #### H RENETTA RAPHAEL3 #### [address] Anion gap [Moles/Vol] 1 mmol/L [facility], [place] Calcium [Mass/Vol] 8.2 mg/dL Low 8.4 - 10. 4 mg/dL [facility], [place] Chloride [Moles/Vol] 99 mmol/L 98 - 10 7 mmol/L [place], [place] CO2 [Moles/Vol] 31 mmol/L High 22 - 30 mmol/L [place] Creatinine [Mass/Vol] 0.7 mg/dL 0.52 - 1.25 mg/dL [place], [place] EGFR IF NonAfrican Wallisian >90.0 >60 mL/min [place], [place] Comment on above: KDIGO guidelines pro vide the following GFR categories: Stage GFR(ml/min/1.73 m2) Terms G1 >=90 Normal or high G2 60-89 Mildly decreased* G3a 45-59 Mildly to moderately decreased G3b 30-44 Moderately to severely decreased G4 15-29 Severely decreased G5 <15 Kidney failure *Relative to young adult level. In the absence of evidence of kidney damage, neither GFR category G1 nor G2 fulfill the criteria for CKD. The CKD-EPI equation is validated in individuals 18 years of age and older. Currently the best equation for estimating glomerular filtration rate (GFR) from serum creatinine in children is the Bedside Vasquez equation. It is less accurate in patients with extremes of muscle mass, restriction of dietary protein, ingestion of creatine, extra-renal metabolism of creatinine, or treatment with medications that affect renal tubular creatinine secretion. GFR/1.73 sq M predicted among blacks MDRD (S/P/Bld) [Vol rate/Area] mL/min/{1.73_m2} >60 mL/min [place], [place] Glucose [Mass/Vol] 111 mg/dL High 70 - 100 mg/dL [place] Interpretation and review of laboratory results Abnormal [place] Potassium [Moles/Vol] 4.5 mmol/L 3.5 - 5.1 mmol/L [place] Sodium [Moles/Vol] 132 mmol/L Low 135 - 145 mmol/L [place] Urea nitrogen [Mass/Vol] 12 mg/dL 7 - 20 mg/dL [place] Test Performed by [facility], [address] [place] [address] [place], [place] CBC auto differentialon 12-2 Erythrocyte distribution width (RBC) [Ratio] 14.5 % 11.5 - 14.5 % [place] Hematocrit (Bld) [Volume fraction] 32.4 % Low 40 - 52 % [place] Hemoglobin (Bld) [Mass/Vol] 10.8 g/dL Low 13 - 18 g/dL [place] MCH (RBC) [Entitic mass] 29.9 pg 26 - 34 pg [place] MCHC (RBC) [Mass/Vol] 33.2 % 32 - 36 % [place], [place] MCV (RBC) [Entitic vol] 90.3 fL 80 - 98 fL [place] Platelet mean volume (Bld) [Entitic vol] 7.2 fL Low 7.4 - 10.4 fL [place] Platelets (Bld) [#/Vol] 278 10*3/uL 140 - 440 10*3/uL [place] RBC (Bld) [#/Vol] 3.59 10*6/uL Low 4.4 - 5.9 10*6/uL [place] WBC (Bld) [#/Vol] 8.7 10*3/uL 3.6 - 10.7 10*3/uL [place] CR Chest Portableon 02-26-20 CR Chest Portable Patient Name: OSWALDO CORLEY Diagnostic Radiology ACCESSION EXAM DATE/TIME PROCEDURE ORDERING PROVIDER [id number] 02/26/2020 06:48 EST CR Chest Portable MD SULLIVAN MAZEN E CPT code 94880 Reason For Exam (CR Chest Portable) sob Report EXAM TYPE: RADIOLOGIC EXAMINATION, CHEST, SINGLE VIEW FRONTAL (CXR SINGLE VIEW) EXAM DATE AND TIME: 02/26/2020 6:48 AM EST INDICATION: Respiratory distress COMPARISON: 02/25/2020 TECHNIQUE: A single frontal view of the thorax was obtained and reviewed. Special views: None. IMPRESSION: 1. Lines/Tubes/Devices/Hardwar e: Stable projection of left-sided chest tubes.. Please confirm position/function of devices/catheters clinically. 2. Lungs: Persistent abnormal lung rebolledo with coarse interstitial prominence. Consider residual pneumonia. 3. Pleura: No significant effusion. Persistent subcutaneous emphysema on the left. Small left pneumothorax laterally. 4. Heart and mediastinum: Limited due to technique. 5. Upper abdomen: No acute process seen. 6. Thorax:No acute bony process Report Dictated on Final Dictated: 02/26/2020 10:27 am Dictating Physician: MD OWENS JOHN Signed Date and Time: 02/26/2020 10:28 am Signed by: MD OWENS JOHN Transcribed Date and Time: 02/26/2020 10:27 Normal [facility] Hemogram w/ Autodiffon 02-25 Erythrocyte distribution width (RBC) [Ratio] 14.5 % Normal 11.5-14.5 [facility] Comment on above: Performed By: #### H IJEOMA BMP3 #### [address] [address] [place], [place] Hematocrit (Bld) [Volume fraction] 32.4 % Low 40.0-52.0 [facility] Comment on above: Performed By: #### H IJEOMA BMP3 #### [address] [address] [place], [place] Hemoglobin (Bld) [Mass/Vol] 10.8 g/dL Low 13.0-18.0 [facility] Comment on above: Performed By: #### H IJEOMA BMP3 #### [address] [address] [place], [place] MCH (RBC) [Entitic mass] 29.9 pg Normal 26.0-34.0 [facility] Comment on above: Performed By: #### H IJEOMA BMP3 #### [address] [place] [place], [place] MCHC (RBC) [Mass/Vol] 33.2 % Normal 32.0-36.0 [facility] Comment on above: Performed By: #### H EMDYuri BMP3 #### [address] [address] [place], [place] MCV (RBC) [Entitic vol] 90.3 fL Normal 80.0-98.0 [facility] Comment on above: Performed By: #### H IJEOMA BMP3 #### [address] [place], [place] Platelet mean volume (Bld) [Entitic vol] 7.2 fL Low 7.4-10.4 [facility] Comment on above: Performed By: #### Kareem RAPHAEL BMP3 #### [address] [address] [address] [place], [place] Platelets (Bld) [#/Vol] 278 10*3/uL Normal 140-440 [facility] Comment on above: Performed By: #### Kareem RAPHAEL BMP3 #### [address] [address], [place] RBC (Bld) [#/Vol] 3.59 10*6/uL Low 4.40-5.90 [facility] Comment on above: Performed By: #### Kareem RAPHAEL BMP3 #### [address] [address] [place], [place] WBC (Bld) [#/Vol] 8.7 10*3/uL Normal 3.6-10.7 [facility] Comment on above: Performed By: #### Kareem RAPHAEL BMP3 #### [address] [place], [place] Manual Diffon 02-26-2020 Abs Eosin Cnt 0.1 10*3/uL Normal 0.0-0.5 [facility] Comment on above: Result Comment: NAILA ECTED RESULT...Previous above value was 0.0, verified on 02/26/20 at 05:35 by [email or web address] . Performed By: #### H IJEOMA BMP3 #### [address] [address] [place], [place] Abs Lymph Cnt 0.3 10*3/uL Low 1.1-4.5 [facility] Comment on above: Performed By: #### Kareem RAPHAEL BMP3 #### [address] [place] [address] [place], [place] Abs Monocyte Cnt 0.9 10*3/uL Normal 0.2-1.1 [facility] Comment on above: Performed By: #### Kareem RAPHAEL BMP3 #### [address] [place] [place], [place] Abs Neutrophile Cnt 7.4 10*3/uL Normal 2.2-8.2 [facility] Comment on above: Performed By: #### H EMDF, BMP3 #### [facility] [address], [place] Bands 1 % Normal 0-3 [facility] Comment on above: Performed By: #### H EMDF, BMP3 #### [facility] [address], [place] Eosinophils 1 % Normal 1-6 [facility] Comment on above: Performed By: #### H EMDF, BMP3 #### [place] [address] [address] [place], [place] Lymphocytes 4 % Low 20-40 [facility] Comment on above: Performed By: #### H EMDF, BMP3 #### [address] [place] [place], [place] Monocytes 10 % Normal 2-10 [facility] Comment on above: Performed By: #### H EMDF, BMP3 #### [address] [place], [place] Polychromasia Slight Normal [facility] Comment on above: Performed By: #### H EMDF, BMP3 #### [address] [address] [place], [place] RBC morphology finding Nom (Bld) Normal Normal [facility] Comment on above: Performed By: #### H EMDF, BMP3 #### [address] [address] [address] [place], [place] Seg Neutrophils 84 % High 40-80 [facility] Comment on above: Performed By: #### H EMDF, BMP3 #### [facility] [address], [place] Abs Baso Cnt 0.0 10*3/uL Normal 0.0-0.2 [facility] Comment on above: Performed By: #### H EMDF, BMP3 #### [address] [address] [address] [place], [place] Basophils 0 % Normal 0-2 [facility] Comment on above: Performed By: #### H RENETTA RAPHAEL3 #### [facility] [address] [place] [address] Cells counted 100 Normal [facility] Comment on above: Performed By: #### H RENETTA RAPHAEL3 #### [facility] [address] [place] [address] Manual Differentialon 2019 Absolute Baso # 0.0 10*3/uL 0 - 0.2 10*3/uL [facility] [place] Absolute Eos # 0.1 10*3/uL 0 - 0.5 10*3/uL [facility] [place] Comment on above: CORRECTED RESULT...P revious above value was 0.0, verified on 02/26/20 at 05:35 by [email or web address] . Absolute Lymph # 0.3 10*3/uL Low 1.1 - 4.5 10*3/uL [facility] [place] Absolute Posey # 0.9 10*3/uL 0.2 - 1.1 10*3/uL [facility] [place] Absolute Neut # 7.4 10*3/uL 2.2 - 8.2 10*3/uL [facility] [place] Bands 1 % 0 - 3 % [facility] [place] Basophils 0 % 0 - 2 % [facility] [place] Eosinophils 1 % 1 - 6 % [facility] [place] Lymphocytes 4 % Low 20 - 40 % [facility] [place] Monocytes 10 % 2 - 10 % [facility] [place] Polychromasia Slight [facility] [place] RBC morphology finding Nom (Bld) Normal [facility] [place] Seg Neutrophils 84 % High 40 - 80 % [facility] [place] TOTAL CELLS COUNTED 100 [facility] [place] Otheron 02-26-2020 Interpretation and review of laboratory results Abnormal [facility] [place] Test Performed by [facility], [address] [place] [id number] [facility] [place] [place] XR CHEST PORTABLEon 02-26-20 20 Patient Name: OSWALDO CORLEY Diagnostic Radiology ACCESSION EXAM DATE/TIME PROCEDURE ORDERING PROVIDER [id number] 02/26/2020 06:48 EST CR Chest Portable MD SULLIVAN MAZEN E CPT code 67893 Reason For Exam (CR Chest Portable) sob Report EXAM TYPE: RADIOLOGIC EXAMINATION, CHEST, SINGLE VIEW FRONTAL (CXR SINGLE VIEW) EXAM DATE AND TIME: 02/26/2020 6:48 AM EST INDICATION: Respiratory distress COMPARISON: 02/25/2020 TECHNIQUE: A single frontal view of the thorax was obtained and reviewed. Special views: None. IMPRESSION: 1. Lines/Tubes/Devices/Hardwar e: Stable projection of left-sided chest tubes.. Please confirm position/function of devices/catheters clinically. 2. Lungs: Persistent abnormal lung rebolledo with coarse interstitial prominence. Consider residual pneumonia. 3. Pleura: No significant effusion. Persistent subcutaneous emphysema on the left. Small left pneumothorax laterally. 4. Heart and mediastinum: Limited due to technique. 5. Upper abdomen: No acute process seen. 6. Thorax:No acute bony process Report Dictated on --- Final --- Dictated: 02/26/2020 10:27 am Dictating Physician: MD OWENS JOHN Signed Date and Time: 02/26/2020 10:28 am Signed by: MD OWENS JOHN Transcribed Date and Time: 02/26/2020 10:27 [place], [place] Hard[place]ep, [facility] Incoming Radiology Results From [facility] - 02/26/2020 10:29 AM EST Patient Name: OSWALDO CORLEY [facility]#: [id number] Diagnostic Radiology ACCESSION EXAM DATE/TIME PROCEDURE ORDERING PROVIDER [id number] 02/26/2020 06:48 EST CR Chest Portable MD SULLIVAN MAZEN E CPT code 37719 Reason For Exam (CR Chest Portable) sob Report EXAM TYPE: RADIOLOGIC EXAMINATION, CHEST, SINGLE VIEW FRONTAL (CXR SINGLE VIEW) EXAM DATE AND TIME: 02/26/2020 6:48 AM EST INDICATION: Respiratory distress COMPARISON: 02/25/2020 TECHNIQUE: A single frontal view of the thorax was obtained and reviewed. Special views: None. IMPRESSION: 1. Lines/Tubes/Devices/Hardwar e: Stable projection of left-sided chest tubes.. Please confirm position/function of devices/catheters clinically. 2. Lungs: Persistent abnormal lung rebolledo with coarse interstitial prominence. Consider residual pneumonia. 3. Pleura: No significant effusion. Persistent subcutaneous emphysema on the left. Small left pneumothorax laterally. 4. Heart and mediastinum: Limited due to technique. 5. Upper abdomen: No acute process seen. 6. Thorax:No acute bony process Report Dictated on --- Final --- Dictated: 02/26/2020 10:27 am Dictating Physician: MD OWENS JOHN Signed Date and Time: 02/26/2020 10:28 am Signed by: MD OWENS JOHN Transcribed Date and Time: 02/26/2020 10:27 [place], [place] Basic Metabolic Panelon 12-2 Anion gap [Moles/Vol] 1 Normal [facility] Comment on above: Performed By: #### B MP3, HEMDF #### [facility] [address], [place] Calcium [Mass/Vol] 7.9 mg/dL Low 8.4-10.4 [facility] Comment on above: Performed By: #### B MP3, HEMDF #### [facility] [address], [place] CO2 [Moles/Vol] 31 mmol/L High 22-30 [facility] Comment on above: Performed By: #### B MP3, HEMDF #### [facility] [address], [place] Glucose [Mass/Vol] 138 mg/dL High 70-100 [facility] Comment on above: Performed By: #### B MP3, HEMDF #### [facility] [address] [place], [place] Urea nitrogen [Mass/Vol] 13 mg/dL Normal 7-20 [facility] Comment on above: Performed By: #### B MP3, HEMDF #### [facility] [address], [place] Creatinine [Mass/Vol] 0.68 mg/dL Normal 0.52-1.25 [facility] Comment on above: Performed By: #### B MP3, HEMDF #### [facility] [address], [place] GFR/1.73 sq M predicted among blacks MDRD (S/P/Bld) [Vol rate/Area] mL/min/{1.73_m2} Normal >60 [facility] Comment on above: Performed By: #### B MP3, HEMDF #### [facility] [address] [place] [address] GFR/1.73 sq M predicted among non-blacks MDRD (S/P/Bld) [Vol rate/Area] mL/min/{1.73_m2} Normal >60 [facility] Comment on above: Result Comment: KDIG O guidelines provide the following GFR categories: Stage GFR(ml/min/1.73 m2) Terms G1 >=90 Normal or high G2 60-89 Mildly decreased* G3a 45-59 Mildly to moderately decreased G3b 30-44 Moderately to severely decreased G4 15-29 Severely decreased G5 <15 Kidney failure *Relative to young adult level. In the absence of evidence of kidney damage, neither GFR category G1 nor G2 fulfill the criteria for CKD. The CKD-EPI equation is validated in individuals 18 years of age and older. Currently the best equation for estimating glomerular filtration rate (GFR) from serum creatinine in children is the Bedside Vasquez equation. It is less accurate in patients with extremes of muscle mass, restriction of dietary protein, ingestion of creatine, extra-renal metabolism of creatinine, or treatment with medications that affect renal tubular creatinine secretion. Performed By: #### Sana MP3, HEMDF #### [facility] [address] [place], [place] Chloride [Moles/Vol] 99 mmol/L Normal 98-107 [facility] Comment on above: Performed By: #### B MP3, HEMDF #### [facility] [address] [place] [address] Potassium [Moles/Vol] 4.3 mmol/L Normal 3.5-5.1 [facility] Comment on above: Performed By: #### Sana MP3, HEMDF #### [facility] [address] [place] [address] Sodium [Moles/Vol] 131 mmol/L Low 135-145 [facility] Comment on above: Performed By: #### B MP3, HEMDF #### [facility] [address] [place] [address] Anion gap [Moles/Vol] 1 mmol/L [place], [place] Calcium [Mass/Vol] 7.9 mg/dL Low 8.4 - 10. 4 mg/dL [place], [place] Chloride [Moles/Vol] 99 mmol/L 98 - 10 7 mmol/L [place] CO2 [Moles/Vol] 31 mmol/L High 22 - 30 mmol/L [place] Creatinine [Mass/Vol] 0.68 mg/dL 0.52 - 1.25 mg/dL [place] EGFR IF NonAfrican [place] >90.0 >60 mL/min [place] Comment on above: KDIGO guidelines pro vide the following GFR categories: Stage GFR(ml/min/1.73 m2) Terms G1 >=90 Normal or high G2 60-89 Mildly decreased* G3a 45-59 Mildly to moderately decreased G3b 30-44 Moderately to severely decreased G4 15-29 Severely decreased G5 <15 Kidney failure *Relative to young adult level. In the absence of evidence of kidney damage, neither GFR category G1 nor G2 fulfill the criteria for CKD. The CKD-EPI equation is validated in individuals 18 years of age and older. Currently the best equation for estimating glomerular filtration rate (GFR) from serum creatinine in children is the Bedside Vasquez equation. It is less accurate in patients with extremes of muscle mass, restriction of dietary protein, ingestion of creatine, extra-renal metabolism of creatinine, or treatment with medications that affect renal tubular creatinine secretion. GFR/1.73 sq M predicted among blacks MDRD (S/P/Bld) [Vol rate/Area] mL/min/{1.73_m2} >60 mL/min [place] Glucose [Mass/Vol] 138 mg/dL High 70 - 100 mg/dL [place] Interpretation and review of laboratory results Abnormal [place] Potassium [Moles/Vol] 4.3 mmol/L 3.5 - 5.1 mmol/L [place] Sodium [Moles/Vol] 131 mmol/L Low 135 - 145 mmol/L [place] Urea nitrogen [Mass/Vol] 13 mg/dL 7 - 20 mg/dL [place] Test Performed by [facility], [address] [place] [address], [place] [address] [place], [place] CBC auto differentialon 12- Absolute Baso # 0.0 10*3/uL 0 - 0.2 10*3/uL [place] Absolute Neut # 6.0 10*3/uL 1.8 - 7 10*3/uL [place], [place] Basophils/100 WBC (Bld) 0.5 % 0 - 2 % [place] Eosinophils (Bld) [#/Vol] 0.2 10*3/uL 0 - 0.5 10*3/uL [place] Eosinophils/100 WBC (Bld) 3.3 % 1 - 6 % [place] Erythrocyte distribution width (RBC) [Ratio] 14.7 % High 11.5 - 14.5 % [place], [place] Granulocytes/100 WBC (Bld) 84.6 % High 40 - 80 % [place] Hematocrit (Bld) [Volume fraction] 29.7 % Low 40 - 52 % [place] Hemoglobin (Bld) [Mass/Vol] 9.8 g/dL Low 13 - 18 g/dL [place] Interpretation and review of laboratory results Abnormal [place] Lymphocytes (Bld) [#/Vol] 0.4 10*3/uL Low 1 - 4.3 10*3/uL [place], [place] Lymphocytes/100 WBC (Bld) 5.0 % Low 20 - 40 % [place] MCH (RBC) [Entitic mass] 29.8 pg 26 - 34 pg [place] MCHC (RBC) [Mass/Vol] 33.1 % 32 - 36 % [place] MCV (RBC) [Entitic vol] 90.1 fL 80 - 98 fL [place], [place] Monocytes (Bld) [#/Vol] 0.5 10*3/uL 0 - 0.8 10*3/uL [place] Monocytes/100 WBC (Bld) 6.6 % 2 - 10 % [place] Platelet mean volume (Bld) [Entitic vol] 6.6 fL Low 7.4 - 10.4 fL [place] Platelets (Bld) [#/Vol] 229 10*3/uL 140 - 440 10*3/uL [place] RBC (Bld) [#/Vol] 3.29 10*6/uL Low 4.4 - 5.9 10*6/uL [place] WBC (Bld) [#/Vol] 7.1 10*3/uL 3.6 - 10.7 10*3/uL [place] Test Performed by [facility], [address] [place] [address] [place], [place] CR Chest Portableon 02-25-20 20 CR Chest Portable Patient Name: OSWALDO CORLEY Diagnostic Radiology ACCESSION EXAM DATE/TIME PROCEDURE ORDERING PROVIDER [id number] 02/25/2020 08:23 EST CR Chest Portable MD NATE, RODRICK Davila CPT code 11351 Reason For Exam (CR Chest Portable) sob Report Portable chest 02/25/2020: Clinical Information: Shortness of breath. Findings: A single AP portable view of the chest was obtained at 818 hours. Comparison was made to the prior study prior day. The left chest tubes are unchanged. No pneumothorax is identified. There continues to be subcutaneous emphysema in the left lateral chest wall. There is bilateral basal atelectasis. Report Dictated on Final Dictated: 02/25/2020 8:51 am Dictating Physician: MD ROBERSON RISA Signed Date and Time: 02/25/2020 8:52 am Signed by: MD ROBERSON RISA Transcribed Date and Time: 02/25/2020 8:51 Normal [facility] CULTURE URINEon 02-25-2020 CULTURE URINE CULTURE URINE --> St atus: F No growth (<1,000 CFU/ml). Normal [facility] Comment on above: Performed By: #### B MP3, HEMDF #### [address] [address] Culture, Urineon 02-25-2020 Bacteria identified Cx Nom (U) No growth (<1,000 CFU/ml). [facility], [place] Test Performed by [facility], [address] [place] [address] [facility], [place] Hemogram w/ Autodiffon 02-24 Abs Baso Cnt 0.0 10*3/uL Normal 0.0-0.2 [facility] Comment on above: Performed By: #### B MP3, HEMDF #### [address] [place] [address] Abs Neutrophile Cnt 6.0 10*3/uL Normal 1.8-7.0 [facility] Comment on above: Performed By: #### B MP3, HEMDF #### [address] [address] Basophils/100 WBC (Bld) 0.5 % Normal 0.0-2.0 [facility] Comment on above: Performed By: #### B MP3, HEMDF #### [address] [place] [address] Eosinophils (Bld) [#/Vol] 0.2 10*3/uL Normal 0.0-0.5 [facility] Comment on above: Performed By: #### Sana MP3, HEMDF #### [address] [address] Eosinophils/100 WBC (Bld) 3.3 % Normal 1.0-6.0 [facility] Comment on above: Performed By: #### B MP3, HEMDF #### [address] [place] [address] Erythrocyte distribution width (RBC) [Ratio] 14.7 % High 11.5-14.5 [facility] Comment on above: Performed By: #### B MP3, HEMDF #### [address] [address] Granulocytes/100 WBC (Bld) 84.6 % High 40.0-80.0 [facility] Comment on above: Performed By: #### B MP3, HEMDF #### [place] [address] [address] [place] Hematocrit (Bld) [Volume fraction] 29.7 % Low 40.0-52.0 [facility] Comment on above: Performed By: #### B MP3, HEMDF #### [facility] [address] [place], [place] Hemoglobin (Bld) [Mass/Vol] 9.8 g/dL Low 13.0-18.0 [facility] Comment on above: Performed By: #### B MP3, HEMDF #### [place] [address] [place] Lymphocytes (Bld) [#/Vol] 0.4 10*3/uL Low 1.0-4.3 [facility] Comment on above: Performed By: #### B MP3, HEMDF #### [address] [place] [address] [place], [place] Lymphocytes/100 WBC (Bld) 5.0 % Low 20.0-40.0 [facility] Comment on above: Performed By: #### B MP3, HEMDF #### [place] [address] [place], [place] MCH (RBC) [Entitic mass] 29.8 pg Normal 26.0-34.0 [facility] Comment on above: Performed By: #### B MP3, HEMDF #### [place] [address] [place], [place] MCHC (RBC) [Mass/Vol] 33.1 % Normal 32.0-36.0 [facility] Comment on above: Performed By: #### B MP3, HEMDF #### [facility] [address] [place], [place] MCV (RBC) [Entitic vol] 90.1 fL Normal 80.0-98.0 [facility] Comment on above: Performed By: #### B MP3, HEMDF #### [place] [address] [place], [place] Monocytes (Bld) [#/Vol] 0.5 10*3/uL Normal 0.0-0.8 [facility] Comment on above: Performed By: #### B MP3, HEMDF #### [facility] [address] [place], [place] Monocytes/100 WBC (Bld) 6.6 % Normal 2.0-10.0 [facility] Comment on above: Performed By: #### B MP3, HEMDF #### [facility] [address] [place], [place] Platelet mean volume (Bld) [Entitic vol] 6.6 fL Low 7.4-10.4 [facility] Comment on above: Performed By: #### B MP3, HEMDF #### [place] [address] [place], [place] Platelets (Bld) [#/Vol] 229 10*3/uL Normal 140-440 [facility] Comment on above: Performed By: #### B MP3, HEMDF #### [place] [address] [place], [place] RBC (Bld) [#/Vol] 3.29 10*6/uL Low 4.40-5.90 [facility] Comment on above: Performed By: #### B MP3, HEMDF #### [place] [address] [place], [place] WBC (Bld) [#/Vol] 7.1 10*3/uL Normal 3.6-10.7 [facility] Comment on above: Performed By: #### B MP3, HEMDF #### [place] [address] [place], [place] XR CHEST PORTABLEon 02-25-20 20 [facility], [facility] Incoming Radiology Results From [facility] - 02/25/2020 8:53 AM EST Patient Name: OSWALDO CORLEY Diagnostic Radiology ACCESSION EXAM DATE/TIME PROCEDURE ORDERING PROVIDER [id number] 02/25/2020 08:23 EST CR Chest Portable MD SULLIVAN MAZEN E CPT code 68433 Reason For Exam (CR Chest Portable) sob Report Portable chest 02/25/2020: Clinical Information: Shortness of breath. Findings: A single AP portable view of the chest was obtained at 818 hours. Comparison was made to the prior study prior day. The left chest tubes are unchanged. No pneumothorax is identified. There continues to be subcutaneous emphysema in the left lateral chest wall. There is bilateral basal atelectasis. Report Dictated on --- Final --- Dictated: 02/25/2020 8:51 am Dictating Physician: MD ROBERSON RISA Signed Date and Time: 02/25/2020 8:52 am Signed by: MD ROBERSON RISA Transcribed Date and Time: 02/25/2020 8:51 [place], [place] Patient Name: OSWALDO CORLEY Diagnostic Radiology ACCESSION EXAM DATE/TIME PROCEDURE ORDERING PROVIDER [id number] 02/25/2020 08:23 EST CR Chest Portable MD SULLIVAN MAZEN E CPT code 33692 Reason For Exam (CR Chest Portable) sob Report Portable chest 02/25/2020: Clinical Information: Shortness of breath. Findings: A single AP portable view of the chest was obtained at 818 hours. Comparison was made to the prior study prior day. The left chest tubes are unchanged. No pneumothorax is identified. There continues to be subcutaneous emphysema in the left lateral chest wall. There is bilateral basal atelectasis. Report Dictated on --- Final --- Dictated: 02/25/2020 8:51 am Dictating Physician: MD ROBERSON RISA Signed Date and Time: 02/25/2020 8:52 am Signed by: MD ROBERSON RISA Transcribed Date and Time: 02/25/2020 8:51 [place], [place] Basic Metabolic Panelon 01-31 Anion gap [Moles/Vol] [address] [facility] Comment on above: Performed By: #### B MP3, HEMDF #### [address] [address] Calcium [Mass/Vol] 8.4 mg/dL Normal 8.4-10.4 [facility] Comment on above: Performed By: #### B MP3, HEMDF #### [address] CO2 [Moles/Vol] 30 mmol/L Normal 22-30 [facility] Comment on above: Performed By: #### B MP3, HEMDF #### [facility] [address] [place], [place] Creatinine [Mass/Vol] 0.68 mg/dL Normal 0.52-1.25 [facility] Comment on above: Performed By: #### B MP3, HEMDF #### [facility] [address] [place], [place] GFR/1.73 sq M predicted among blacks MDRD (S/P/Bld) [Vol rate/Area] mL/min/{1.73_m2} Normal >60 [facility] Comment on above: Performed By: #### B MP3, HEMDF #### [facility] [address], [place] GFR/1.73 sq M predicted among non-blacks MDRD (S/P/Bld) [Vol rate/Area] mL/min/{1.73_m2} Normal >60 [facility] Comment on above: Result Comment: KDIG O guidelines provide the following GFR categories: Stage GFR(ml/min/1.73 m2) Terms G1 >=90 Normal or high G2 60-89 Mildly decreased* G3a 45-59 Mildly to moderately decreased G3b 30-44 Moderately to severely decreased G4 15-29 Severely decreased G5 <15 Kidney failure *Relative to young adult level. In the absence of evidence of kidney damage, neither GFR category G1 nor G2 fulfill the criteria for CKD. The CKD-EPI equation is validated in individuals 18 years of age and older. Currently the best equation for estimating glomerular filtration rate (GFR) from serum creatinine in children is the Bedside Vasquez equation. It is less accurate in patients with extremes of muscle mass, restriction of dietary protein, ingestion of creatine, extra-renal metabolism of creatinine, or treatment with medications that affect renal tubular creatinine secretion. Performed By: #### B MP3, HEMDF #### [facility] [address] [place], [place] Glucose [Mass/Vol] 98 mg/dL Normal 70-100 [facility] Comment on above: Performed By: #### B MP3, HEMDF #### [facility] [address] [place] [address] Urea nitrogen [Mass/Vol] 18 mg/dL Normal 7-20 [facility] Comment on above: Performed By: #### B MP3, HEMDF #### [facility] [address] [place] [address] Chloride [Moles/Vol] 96 mmol/L Low 98-107 [facility] Comment on above: Performed By: #### B MP3, HEMDF #### [facility] [address] [place] [address] Potassium [Moles/Vol] 4.1 mmol/L Normal 3.5-5.1 [facility] Comment on above: Performed By: #### B MP3, HEMDF #### [facility] [address] [place] [address] Sodium [Moles/Vol] 133 mmol/L Low 135-145 [facility] Comment on above: Performed By: #### B MP3, HEMDF #### [facility] [address] [place] [address] Anion gap [Moles/Vol] 6 mmol/L [place], [place] Calcium [Mass/Vol] 8.4 mg/dL 8.4 - 10. 4 mg/dL [place], [place] Chloride [Moles/Vol] 96 mmol/L Low 98 - 10 7 mmol/L [place] CO2 [Moles/Vol] 30 mmol/L 22 - 30 mmol/L [place] Creatinine [Mass/Vol] 0.68 mg/dL 0.52 - 1.25 mg/dL [place] EGFR IF NonAfrican [place] >90.0 >60 mL/min [place] Comment on above: KDIGO guidelines pro vide the following GFR categories: Stage GFR(ml/min/1.73 m2) Terms G1 >=90 Normal or high G2 60-89 Mildly decreased* G3a 45-59 Mildly to moderately decreased G3b 30-44 Moderately to severely decreased G4 15-29 Severely decreased G5 <15 Kidney failure *Relative to young adult level. In the absence of evidence of kidney damage, neither GFR category G1 nor G2 fulfill the criteria for CKD. The CKD-EPI equation is validated in individuals 18 years of age and older. Currently the best equation for estimating glomerular filtration rate (GFR) from serum creatinine in children is the Bedside Vasquez equation. It is less accurate in patients with extremes of muscle mass, restriction of dietary protein, ingestion of creatine, extra-renal metabolism of creatinine, or treatment with medications that affect renal tubular creatinine secretion. GFR/1.73 sq M predicted among blacks MDRD (S/P/Bld) [Vol rate/Area] mL/min/{1.73_m2} >60 mL/min [place] Glucose [Mass/Vol] 98 mg/dL 70 - 100 mg/dL [place] Interpretation and review of laboratory results Abnormal [place] Potassium [Moles/Vol] 4.1 mmol/L 3.5 - 5.1 mmol/L [place] Sodium [Moles/Vol] 133 mmol/L Low 135 - 145 mmol/L [place] Urea nitrogen [Mass/Vol] 18 mg/dL 7 - 20 mg/dL [place] Test Performed by [facility], [address] [place] [id number] [place] [address] CBC auto differentialon 12-2 Absolute Baso # 0.0 10*3/uL 0 - 0.2 10*3/uL [place] Absolute Neut # 6.6 10*3/uL 1.8 - 7 10*3/uL [place] Basophils/100 WBC (Bld) 0.2 % 0 - 2 % [place] Eosinophils (Bld) [#/Vol] 0.1 10*3/uL 0 - 0.5 10*3/uL [place] Eosinophils/100 WBC (Bld) 1.2 % 1 - 6 % [place] Erythrocyte distribution width (RBC) [Ratio] 14.6 % High 11.5 - 14.5 % [place] Granulocytes/100 WBC (Bld) 87.2 % High 40 - 80 % [place] Hematocrit (Bld) [Volume fraction] 30.8 % Low 40 - 52 % [place] Hemoglobin (Bld) [Mass/Vol] 10.2 g/dL Low 13 - 18 g/dL [place] Interpretation and review of laboratory results Abnormal [place] Lymphocytes (Bld) [#/Vol] 0.4 10*3/uL Low 1 - 4.3 10*3/uL [place] Lymphocytes/100 WBC (Bld) 5.3 % Low 20 - 40 % [place] MCH (RBC) [Entitic mass] 29.8 pg 26 - 34 pg [place] MCHC (RBC) [Mass/Vol] 33.1 % 32 - 36 % [place] MCV (RBC) [Entitic vol] 90.0 fL 80 - 98 fL [place] Monocytes (Bld) [#/Vol] 0.5 10*3/uL 0 - 0.8 10*3/uL [place] Monocytes/100 WBC (Bld) 6.1 % 2 - 10 % [place] Platelet mean volume (Bld) [Entitic vol] 6.8 fL Low 7.4 - 10.4 fL [place] Platelets (Bld) [#/Vol] 231 10*3/uL 140 - 440 10*3/uL [place] RBC (Bld) [#/Vol] 3.42 10*6/uL Low 4.4 - 5.9 10*6/uL [place] WBC (Bld) [#/Vol] 7.5 10*3/uL 3.6 - 10.7 10*3/uL [place] Test Performed by [facility], [address] [place] [id number] [place], [place] CR Chest Portableon 02-24-20 20 CR Chest Portable Patient Name: OSWALDO CORLEY Diagnostic Radiology ACCESSION EXAM DATE/TIME PROCEDURE ORDERING PROVIDER [id number] 02/24/2020 07:23 EST CR Chest Portable MD NATE, RODRICK Davila CPT code 12051 Reason For Exam (CR Chest Portable) sob Report Portable chest 02/24/2020: Clinical Information: Shortness of breath. Findings: A single AP portable view of the chest was obtained at 710 hours. Comparison was made to the prior study prior day. The left-sided chest tubes are unchanged. No pneumothorax is identified. There continues to be subcutaneous emphysema in the left lateral chest wall. There is basal atelectasis on the left. No pulmonary vascular congestion or consolidation is otherwise identified. Report Dictated on Final Dictated: 02/24/2020 8:24 am Dictating Physician: MD ROBERSON RISA Signed Date and Time: 02/24/2020 8:25 am Signed by: MD ROBERSON RISA Transcribed Date and Time: 02/24/2020 8:24 Normal [facility] Hemogram w/ Autodiffon 02-23 Abs Baso Cnt 0.0 10*3/uL Normal 0.0-0.2 [facility] Comment on above: Performed By: #### B MP3, HEMDF #### [address] [address] Abs Neutrophile Cnt 6.6 10*3/uL Normal 1.8-7.0 [facility] Comment on above: Performed By: #### Sana MP3, HEMDF #### [address] [address] Basophils/100 WBC (Bld) 0.2 % Normal 0.0-2.0 [facility] Comment on above: Performed By: #### Sana MP3, HEMDF #### [place] [address] [place] [address] Eosinophils (Bld) [#/Vol] 0.1 10*3/uL Normal 0.0-0.5 [facility] Comment on above: Performed By: #### Sana MP3, HEMDF #### [address] [address] Eosinophils/100 WBC (Bld) 1.2 % Normal 1.0-6.0 [facility] Comment on above: Performed By: #### Sana MP3, HEMDF #### [address] Erythrocyte distribution width (RBC) [Ratio] 14.6 % High 11.5-14.5 [facility] Comment on above: Performed By: #### B MP3, HEMDF #### [place] [address] [place], [place] Granulocytes/100 WBC (Bld) 87.2 % High 40.0-80.0 [facility] Comment on above: Performed By: #### B MP3, HEMDF #### [place] [address] [place] Hematocrit (Bld) [Volume fraction] 30.8 % Low 40.0-52.0 [facility] Comment on above: Performed By: #### B MP3, HEMDF #### [place] [address] [place] Hemoglobin (Bld) [Mass/Vol] 10.2 g/dL Low 13.0-18.0 [facility] Comment on above: Performed By: #### B MP3, HEMDF #### [place] [address] [place] Lymphocytes (Bld) [#/Vol] 0.4 10*3/uL Low 1.0-4.3 [facility] Comment on above: Performed By: #### B MP3, HEMDF #### [place] [address] [place] Lymphocytes/100 WBC (Bld) 5.3 % Low 20.0-40.0 [facility] Comment on above: Performed By: #### B MP3, HEMDF #### [place] [address] [place] MCH (RBC) [Entitic mass] 29.8 pg Normal 26.0-34.0 [facility] Comment on above: Performed By: #### B MP3, HEMDF #### [place] [address] [place] MCHC (RBC) [Mass/Vol] 33.1 % Normal 32.0-36.0 [facility] Comment on above: Performed By: #### B MP3, HEMDF #### [facility] [address], [place] MCV (RBC) [Entitic vol] 90.0 fL Normal 80.0-98.0 [facility] Comment on above: Performed By: #### B MP3, HEMDF #### [facility] [address], [place] Monocytes (Bld) [#/Vol] 0.5 10*3/uL Normal 0.0-0.8 [facility] Comment on above: Performed By: #### B MP3, HEMDF #### [facility] [address] Monocytes/100 WBC (Bld) 6.1 % Normal 2.0-10.0 [facility] Comment on above: Performed By: #### B MP3, HEMDF #### [facility] [address] [place] Platelet mean volume (Bld) [Entitic vol] 6.8 fL Low 7.4-10.4 [facility] Comment on above: Performed By: #### B MP3, HEMDF #### [facility] [address] [place] Platelets (Bld) [#/Vol] 231 10*3/uL Normal 140-440 [facility] Comment on above: Performed By: #### B MP3, HEMDF #### [facility] [address] [place], [place] RBC (Bld) [#/Vol] 3.42 10*6/uL Low 4.40-5.90 [facility] Comment on above: Performed By: #### B MP3, HEMDF #### [facility] [address] [place] WBC (Bld) [#/Vol] 7.5 10*3/uL Normal 3.6-10.7 [facility] Comment on above: Performed By: #### B MP3, HEMDF #### [facility] [address] [place], [place] XR CHEST PORTABLEon 02-24-20 Patient Name: OSWALDO CORLEY Diagnostic Radiology ACCESSION EXAM DATE/TIME PROCEDURE ORDERING PROVIDER [id number] 02/24/2020 07:23 EST CR Chest Portable MD SULLIVAN MAZEN E CPT code 13507 Reason For Exam (CR Chest Portable) sob Report Portable chest 02/24/2020: Clinical Information: Shortness of breath. Findings: A single AP portable view of the chest was obtained at 710 hours. Comparison was made to the prior study prior day. The left-sided chest tubes are unchanged. No pneumothorax is identified. There continues to be subcutaneous emphysema in the left lateral chest wall. There is basal atelectasis on the left. No pulmonary vascular congestion or consolidation is otherwise identified. Report Dictated on --- Final --- Dictated: 02/24/2020 8:24 am Dictating Physician: MD ROBERSON RISA Signed Date and Time: 02/24/2020 8:25 am Signed by: MD ROBERSON RISA Transcribed Date and Time: 02/24/2020 8:24 [facility], [place], [facility] Incoming Radiology Results From [facility] - 02/24/2020 8:26 AM EST Patient Name: OSWALDO CORLEY Diagnostic Radiology ACCESSION EXAM DATE/TIME PROCEDURE ORDERING PROVIDER [id number] 02/24/2020 07:23 EST CR Chest Portable MD SULLIVAN MAZEN E CPT code 05766 Reason For Exam (CR Chest Portable) sob Report Portable chest 02/24/2020: Clinical Information: Shortness of breath. Findings: A single AP portable view of the chest was obtained at 710 hours. Comparison was made to the prior study prior day. The left-sided chest tubes are unchanged. No pneumothorax is identified. There continues to be subcutaneous emphysema in the left lateral chest wall. There is basal atelectasis on the left. No pulmonary vascular congestion or consolidation is otherwise identified. Report Dictated on --- Final --- Dictated: 02/24/2020 8:24 am Dictating Physician: MD ROBERSON RISA Signed Date and Time: 02/24/2020 8:25 am Signed by: ROBERSON, MD, PROMISE Transcribed Date and Time: 02/24/2020 8:24 [facility], [place] Add On Lab Teston 02-23-2020 Sodium [Moles/Vol] Accepted [facility] [place] Comment on above: Specimen available & acceptable for analysis. Test Performed by [facility], [address] [place] [address] [facility] [place] Add on test from [facility]on 02-22 Add on test from [facility] Accepted Normal [facility] Comment on above: Result Comment: Spec imen available & acceptable for analysis. Performed By: #### B MP3, HEMDF #### [facility] [address] [place] [address] Basic Metabolic Panelon 01-31 Anion gap [Moles/Vol] 5 Normal [facility] Comment on above: Performed By: #### H EMDF, BMP3 #### [facility] [address] [place] [address] Calcium [Mass/Vol] 8.5 mg/dL Normal 8.4-10.4 [facility] Comment on above: Performed By: #### H EMDF, BMP3 #### [facility] [address] [place] [address] CO2 [Moles/Vol] 29 mmol/L Normal 22-30 [facility] Comment on above: Performed By: #### H EMDF, BMP3 #### [facility] [address] [place] [address] Glucose [Mass/Vol] 126 mg/dL High 70-100 [facility] Comment on above: Performed By: #### H EMDF, BMP3 #### [facility] [address] [place] [address] Urea nitrogen [Mass/Vol] 21 mg/dL High 7-20 [facility] Comment on above: Performed By: #### H EMDF, BMP3 #### [facility] [address] [place] [address] Creatinine [Mass/Vol] 0.78 mg/dL Normal 0.52-1.25 [facility] Comment on above: Performed By: #### H EMDF, BMP3 #### [facility] [address] [place] [address] GFR/1.73 sq M predicted among blacks MDRD (S/P/Bld) [Vol rate/Area] mL/min/{1.73_m2} Normal >60 [facility] Comment on above: Performed By: #### H IJEOMA BMP3 #### [facility] [address] [place] [address] GFR/1.73 sq M predicted among non-blacks MDRD (S/P/Bld) [Vol rate/Area] 86.7 mL/min/{1.73_m2} Normal >60 [facility] Comment on above: Result Comment: KDIG O guidelines provide the following GFR categories: Stage GFR(ml/min/1.73 m2) Terms G1 >=90 Normal or high G2 60-89 Mildly decreased* G3a 45-59 Mildly to moderately decreased G3b 30-44 Moderately to severely decreased G4 15-29 Severely decreased G5 <15 Kidney failure *Relative to young adult level. In the absence of evidence of kidney damage, neither GFR category G1 nor G2 fulfill the criteria for CKD. The CKD-EPI equation is validated in individuals 18 years of age and older. Currently the best equation for estimating glomerular filtration rate (GFR) from serum creatinine in children is the Bedside Vasquez equation. It is less accurate in patients with extremes of muscle mass, restriction of dietary protein, ingestion of creatine, extra-renal metabolism of creatinine, or treatment with medications that affect renal tubular creatinine secretion. Performed By: #### H IJEOMA BMP3 #### [facility] [address] [place], [place] Chloride [Moles/Vol] 101 mmol/L Normal 98-107 [facility] Comment on above: Performed By: #### H IJEOMA BMP3 #### [facility] [address] [place], [place] Potassium [Moles/Vol] 4.6 mmol/L Normal 3.5-5.1 [facility] Comment on above: Performed By: #### H IJEOMA BMP3 #### [facility] [address] [place], [place] Sodium [Moles/Vol] 135 mmol/L Normal 135-145 [facility] Comment on above: Performed By: #### H [facility], BMP3 #### [facility] [address] [place] [address] Anion gap [Moles/Vol] 5 mmol/L [place] Calcium [Mass/Vol] 8.5 mg/dL 8.4 - 10. 4 mg/dL [place] Chloride [Moles/Vol] 101 mmol/L 98 - 10 7 mmol/L [place] CO2 [Moles/Vol] 29 mmol/L 22 - 30 mmol/L [place] Creatinine [Mass/Vol] 0.78 mg/dL 0.52 - 1.25 mg/dL [place] EGFR IF NonAfrican [place] 86.7 mL/min >60 [place] Comment on above: KDIGO guidelines pro vide the following GFR categories: Stage GFR(ml/min/1.73 m2) Terms G1 >=90 Normal or high G2 60-89 Mildly decreased* G3a 45-59 Mildly to moderately decreased G3b 30-44 Moderately to severely decreased G4 15-29 Severely decreased G5 <15 Kidney failure *Relative to young adult level. In the absence of evidence of kidney damage, neither GFR category G1 nor G2 fulfill the criteria for CKD. The CKD-EPI equation is validated in individuals 18 years of age and older. Currently the best equation for estimating glomerular filtration rate (GFR) from serum creatinine in children is the Bedside Vasquez equation. It is less accurate in patients with extremes of muscle mass, restriction of dietary protein, ingestion of creatine, extra-renal metabolism of creatinine, or treatment with medications that affect renal tubular creatinine secretion. GFR/1.73 sq M predicted among blacks MDRD (S/P/Bld) [Vol rate/Area] mL/min/{1.73_m2} >60 mL/min [place] Glucose [Mass/Vol] 126 mg/dL High 70 - 100 mg/dL [place] Interpretation and review of laboratory results Abnormal [place] Potassium [Moles/Vol] 4.6 mmol/L 3.5 - 5.1 mmol/L [place] Sodium [Moles/Vol] 135 mmol/L 135 - 145 mmol/L [place] Urea nitrogen [Mass/Vol] 21 mg/dL High 7 - 20 mg/dL [place] Test Performed by [facility], [address] [place] [address] [place], [place] CBC auto differentialon 12- Absolute Baso # 0.0 10*3/uL 0 - 0.2 10*3/uL [place] Absolute Neut # 7.8 10*3/uL High 1.8 - 7 10*3/uL [place] Basophils/100 WBC (Bld) 0.1 % 0 - 2 % [place] Eosinophils (Bld) [#/Vol] 0.0 10*3/uL 0 - 0.5 10*3/uL [place] Eosinophils/100 WBC (Bld) 0.4 % Low 1 - 6 % [place] Erythrocyte distribution width (RBC) [Ratio] 14.7 % High 11.5 - 14.5 % [place] Granulocytes/100 WBC (Bld) 89.0 % High 40 - 80 % [place] Hematocrit (Bld) [Volume fraction] 31.0 % Low 40 - 52 % [place] Hemoglobin (Bld) [Mass/Vol] 10.4 g/dL Low 13 - 18 g/dL [place] Interpretation and review of laboratory results Abnormal [place] Lymphocytes (Bld) [#/Vol] 0.4 10*3/uL Low 1 - 4.3 10*3/uL [place] Lymphocytes/100 WBC (Bld) 4.4 % Low 20 - 40 % [place] MCH (RBC) [Entitic mass] 30.3 pg 26 - 34 pg [place] MCHC (RBC) [Mass/Vol] 33.6 % 32 - 36 % [place] MCV (RBC) [Entitic vol] 90.0 fL 80 - 98 fL [place] Monocytes (Bld) [#/Vol] 0.5 10*3/uL 0 - 0.8 10*3/uL [place] Monocytes/100 WBC (Bld) 6.1 % 2 - 10 % [place] Platelet mean volume (Bld) [Entitic vol] 6.7 fL Low 7.4 - 10.4 fL [place] Platelets (Bld) [#/Vol] 216 10*3/uL 140 - 440 10*3/uL [place] RBC (Bld) [#/Vol] 3.45 10*6/uL Low 4.4 - 5.9 10*6/uL [place] WBC (Bld) [#/Vol] 8.7 10*3/uL 3.6 - 10.7 10*3/uL [place] Test Performed by [id number] [place] [address] CR Chest Portableon 02-23-20 CR Chest Portable Patient Name: OSWALDO CORLEY Diagnostic Radiology ACCESSION EXAM DATE/TIME PROCEDURE ORDERING PROVIDER [id number] 02/23/2020 12:35 EST CR Chest Portable Aneudy CORNEJO, REBECCA HARDIN CPT code 45169 Reason For Exam (CR Chest Portable) SOB Report PORTABLE CHEST (Frontal View) History: Respiratory abnormality, dyspnea Comparison: 02/23/2020, 6:40 AM Findings: Frontal portable chest view show small left pneumothorax with partial volume loss of the left lung, left chest tube and subcutaneous emphysema, not significantly changed from last exam. There is redemonstration of left basilar atelectasis/infiltrate with spiculated density and a smaller linear right basilar atelectasis, unchanged. Left upper lobe opacity/infiltrate is also unchanged. The heart is normal in size and shifted rightward with median sternotomy noted. There is no mediastinal widening or other significant interval change. Report Dictated on Final Dictated: 02/23/2020 1:05 pm Dictating Physician: MD TONY AHMAD Signed Date and Time: 02/23/2020 1:11 pm Signed by: MD TONY AHMAD Transcribed Date and Time: 02/23/2020 1:05 [facility] CR Chest Portable Patient Name: OSWALDO CORLEY Diagnostic Radiology ACCESSION EXAM DATE/TIME PROCEDURE ORDERING PROVIDER [id number] 02/23/2020 06:49 EST CR Chest Portable MD SULLIVAN MAZEN E CPT code 39040 Reason For Exam (CR Chest Portable) sob Report Examination: Portable Chest, 0640 hours 02/23/2020. Comparison: 02/22/2020. Reason For Study: Shortness of breath. Findings: Cardiac silhouette is normal in size. Aorta is atherosclerotic. Lungs are diminished in volume. A spiculated opacity is redemonstrated at the left base. Loculated pneumothorax is redemonstrated at the left costophrenic angle. Osseous structures appear intact. Subcutaneous emphysema is observed laterally on the left. Support Devices: Thoracostomy tubes project at the left apex and base. Conclusion(s): 1. Left basilar nodule with no change. 2. Regressing left basilar pneumothorax. 3. Left-sided subcutaneous emphysema with no significant change. 4. Stable position of thoracostomy tubes. Report Dictated on Final Dictated: 02/23/2020 7:17 am Dictating Physician: MD GARCÍA B NELSON Signed Date and Time: 02/23/2020 7:22 am Signed by: MD GARCÍA B NELSON Transcribed Date and Time: 02/23/2020 7:17 Normal [facility] Complete Urinalysison 2019 Appearance (U) Turbid Abnormal Clear [facility] Comment on above: Result Comment: . Performed By: #### B MP3, HEMDF #### [facility] [address] [place] [address] Bacteria LM.HPF (Urine sed) [#/Area] Few Abnormal Negative [facility] Comment on above: Result Comment: . Performed By: #### B MP3, HEMDF #### [facility] [address] [place] [address] Bilirubin,Urine Negative Normal Negative [facility] Comment on above: Result Comment: . Performed By: #### B MP3, HEMDF #### [facility] [address] [place], [place] Cast, Hyaline 0 - 2 Abnormal Negative [facility] Comment on above: Result Comment: . Performed By: #### B MP3, HEMDF #### [place] [address] [address] [place], [place] Color (U) Yellow Normal Lt. Yellow [facility] Comment on above: Result Comment: . Performed By: #### B MP3, HEMDF #### [facility] [address] [place], [place] Glucose Ql (U) Normal Normal Normal (<70) [facility] Comment on above: Result Comment: . Performed By: #### B MP3, HEMDF #### [place] [address] [address] [place], [place] Ketone,Urine 10 mg/dL Abnormal Negative [facility] Comment on above: Result Comment: . Performed By: #### B MP3, HEMDF #### [place] [address] [address] [place], [place] Leukocytes,Urine Negative Normal Negative [facility] Comment on above: Result Comment: . Performed By: #### B MP3, HEMDF #### [place] [address] [address] [place], [place] Mucous Threads Few Normal Negative [facility] Comment on above: Result Comment: . Performed By: #### B MP3, HEMDF #### [place] [address] [address] [place], [place] Nitrites,Urine Negative Normal Negative [facility] Comment on above: Result Comment: . Performed By: #### B MP3, HEMDF #### [place] [address] [address] [place], [place] Occult Blood,Urine 0.2 mg/dL Abnormal Negative [facility] Comment on above: Result Comment: . Performed By: #### B MP3, HEMDF #### [place] [address] [address] [place], [place] pH (U) 5.5 Normal 5.0-8.0 [facility] Comment on above: Result Comment: . Performed By: #### B MP3, HEMDF #### [place] [address] [address] [place], [place] Protein (U) [Mass/Vol] 30 mg/dL Abnormal Negative [facility] Comment on above: Result Comment: . Performed By: #### B MP3, HEMDF #### [place] [address] [address] [place], [place] RBC LM.HPF (Urine sed) [#/Area] 51 - 100 Abnormal 0-2 [facility] Comment on above: Result Comment: . Performed By: #### B MP3, HEMDF #### [place] [address] [address] [place], [place] Specific Somers,Urine 1.028 Normal 1.005 - 1.030 [facility] Comment on above: Result Comment: . Performed By: #### B MP3, HEMDF #### [place] [address] [address] [place], [place] Squamous Epithelial Negative Normal 3-5 [facility] Comment on above: Result Comment: . Performed By: #### B MP3, HEMDF #### [place] [address] [address] [place], [place] Urobilinogen,Urine Normal Normal Normal (0-1) [facility] Comment on above: Result Comment: . Performed By: #### B MP3, HEMDF #### [place] [address] [address] [place], [place] WBC LM.HPF (Urine sed) [#/Area] 3 - 5 Normal 0-5 [facility] Comment on above: Result Comment: . Performed By: #### B MP3, HEMDF #### [place] [address] [address] [place], [place] Hemogram w/ Autodiffon 02-22 Abs Baso Cnt 0.0 10*3/uL Normal 0.0-0.2 [facility] Comment on above: Performed By: #### H EMDF, BMP3 #### [place] [address] [address] [place], [place] Abs Neutrophile Cnt 7.8 10*3/uL High 1.8-7.0 [facility] Comment on above: Performed By: #### H EMDF, BMP3 #### [facility] [address] [place] [address] Basophils/100 WBC (Bld) 0.1 % Normal 0.0-2.0 [facility] Comment on above: Performed By: #### H EMDF, BMP3 #### [facility] [address] [place] [address] Eosinophils (Bld) [#/Vol] 0.0 10*3/uL Normal 0.0-0.5 [facility] Comment on above: Performed By: #### H EMDF, BMP3 #### [facility] [address] [place] [address] Eosinophils/100 WBC (Bld) 0.4 % Low 1.0-6.0 [facility] Comment on above: Performed By: #### H EMDF, BMP3 #### [place] [address] [address] [place], [place] Erythrocyte distribution width (RBC) [Ratio] 14.7 % High 11.5-14.5 [facility] Comment on above: Performed By: #### H EMDF, BMP3 #### [place] [address] [place] [address] Granulocytes/100 WBC (Bld) 89.0 % High 40.0-80.0 [facility] Comment on above: Performed By: #### H EMDF, BMP3 #### [place] [address] [address] [place], [place] Hematocrit (Bld) [Volume fraction] 31.0 % Low 40.0-52.0 [facility] Comment on above: Performed By: #### H EMDF, BMP3 #### [facility] [address] [place] [address] Hemoglobin (Bld) [Mass/Vol] 10.4 g/dL Low 13.0-18.0 [facility] Comment on above: Performed By: #### H EMDF, BMP3 #### [facility] [address] [place] [address] Lymphocytes (Bld) [#/Vol] 0.4 10*3/uL Low 1.0-4.3 [facility] Comment on above: Performed By: #### H EMDYuri BMP3 #### [facility] [address] [place], [place] Lymphocytes/100 WBC (Bld) 4.4 % Low 20.0-40.0 [facility] Comment on above: Performed By: #### H IJEOMA BMP3 #### [facility] [address] [place], [place] MCH (RBC) [Entitic mass] 30.3 pg Normal 26.0-34.0 [facility] Comment on above: Performed By: #### H IJEOMA BMP3 #### [place] [address] [place], [place] MCHC (RBC) [Mass/Vol] 33.6 % Normal 32.0-36.0 [facility] Comment on above: Performed By: #### H IJEOMA BMP3 #### [address] MCV (RBC) [Entitic vol] 90.0 fL Normal 80.0-98.0 [facility] Comment on above: Performed By: #### H IJEOMA BMP3 #### [address] Monocytes (Bld) [#/Vol] 0.5 10*3/uL Normal 0.0-0.8 [facility] Comment on above: Performed By: #### H EMDYuri BMP3 #### [place] [address] [address] [place], [place] Monocytes/100 WBC (Bld) 6.1 % Normal 2.0-10.0 [facility] Comment on above: Performed By: #### H IJEOMA BMP3 #### [address] Platelet mean volume (Bld) [Entitic vol] 6.7 fL Low 7.4-10.4 [facility] Comment on above: Performed By: #### H IJEOMA BMP3 #### [place] [address] [place], [place] Platelets (Bld) [#/Vol] 216 10*3/uL Normal 140-440 [facility] Comment on above: Performed By: #### H RENETTA RAPHAEL3 #### [facility] [address] [place], [place] RBC (Bld) [#/Vol] 3.45 10*6/uL Low 4.40-5.90 [facility] Comment on above: Performed By: #### H RENETTA RAPHAEL3 #### [facility] [address] [place], [place] WBC (Bld) [#/Vol] 8.7 10*3/uL Normal 3.6-10.7 [facility] Comment on above: Performed By: #### H RENETTA RAPHAEL3 #### [facility] [address] [place], [place] Urinalysison 02-23-2020 Appearance (U) Turbid Abnormal Clear [place], [place] Comment on above: . Bacteria, UA Few Abnormal Negative /[HPF] [place], [place] Comment on above: . Bilirubin Urine Negative Negative mg/dL [place] Comment on above: . Color (U) Yellow Lt. Yellow NA [place] Comment on above: . Glucose, Ur Normal Normal (<70) mg/dL [place] Comment on above: . Hyaline Casts, UA 0-2 Abnormal Negative /[LPF] [place] Comment on above: . Interpretation and review of laboratory results Abnormal [place] Ketones Ql (U) 10 mg/dL Abnormal Negative [place] Comment on above: . LEUKOCYTES, UA Negative Negative Nelly/uL [place] Comment on above: . Mucous Threads Few Negative /[LPF] [place] Comment on above: . Nitrite, Urine Negative Negative [place] Comment on above: . Occult Blood,Urine 0.2 mg/dL Abnormal Negative [place] Comment on above: . pH (U) 5.5 [pH] [place] Comment on above: . Protein (U) [Mass/Vol] 30 mg/dL Abnormal Negative [place] Comment on above: . RBC (U) [#/Vol] 51-100 Abnormal 0 - 2 /[HPF] [place] Comment on above: . Specific Somers, Urine 1.028 [place] Comment on above: . Squam Epithel, UA Negative 3 - 5 /[HPF] [place] Comment on above: . Urobilinogen, Urine Normal Normal (0-1) mg/dL [place] Comment on above: . WBC, UA 3-5 0 - 5 /[HPF] [place] Comment on above: . Test Performed by [facility], [address] [place] [address] [place], [place] XR CHEST PORTABLEon 02-23-20 Patient Name: OSWALDO CORLEY Diagnostic Radiology ACCESSION EXAM DATE/TIME PROCEDURE ORDERING PROVIDER [id number] 02/23/2020 12:35 EST CR Chest Portable Aneudy CORNEJO, REBECCA HARDIN CPT code 00151 Reason For Exam (CR Chest Portable) SOB Report PORTABLE CHEST (Frontal View) History: Respiratory abnormality, dyspnea Comparison: 02/23/2020, 6:40 AM Findings: Frontal portable chest view show small left pneumothorax with partial volume loss of the left lung, left chest tube and subcutaneous emphysema, not significantly changed from last exam. There is redemonstration of left basilar atelectasis/infiltrate with spiculated density and a smaller linear right basilar atelectasis, unchanged. Left upper lobe opacity/infiltrate is also unchanged. The heart is normal in size and shifted rightward with median sternotomy noted. There is no mediastinal widening or other significant interval change. Report Dictated on --- Final --- Dictated: 02/23/2020 1:05 pm Dictating Physician: MD TONY AHMAD Signed Date and Time: 02/23/2020 1:11 pm Signed by: MD TONY AHMAD Transcribed Date and Time: 02/23/2020 1:05 [place], [place] Nolan [facility]ier Incoming Radiology [facility] - 02/23/2020 1:12 PM EST Patient Name: OSWALDO CORLEY Diagnostic Radiology ACCESSION EXAM DATE/TIME PROCEDURE ORDERING PROVIDER [id number] 02/23/2020 12:35 EST CR Chest Portable Aneudy CORNEJO, REBECCA HARDIN CPT code 04146 Reason For Exam (CR Chest Portable) SOB Report PORTABLE CHEST (Frontal View) History: Respiratory abnormality, dyspnea Comparison: 02/23/2020, 6:40 AM Findings: Frontal portable chest view show small left pneumothorax with partial volume loss of the left lung, left chest tube and subcutaneous emphysema, not significantly changed from last exam. There is redemonstration of left basilar atelectasis/infiltrate with spiculated density and a smaller linear right basilar atelectasis, unchanged. Left upper lobe opacity/infiltrate is also unchanged. The heart is normal in size and shifted rightward with median sternotomy noted. There is no mediastinal widening or other significant interval change. Report Dictated on --- Final --- Dictated: 02/23/2020 1:05 pm Dictating Physician: MD TONY AHMAD Signed Date and Time: 02/23/2020 1:11 pm Signed by: MD TONY AHMAD Transcribed Date and Time: 02/23/2020 1:05 [facility] Incoming Radiology Results From [facility] - 02/23/2020 7:23 AM EST Patient Name: OSWALDO CORLEY Diagnostic Radiology ACCESSION EXAM DATE/TIME PROCEDURE ORDERING PROVIDER [id number] 02/23/2020 06:49 EST CR Chest Portable MD NATE, RODRICK Davila CPT code 52523 Reason For Exam (CR Chest Portable) sob Report Examination: Portable Chest, 0640 hours 02/23/2020. Comparison: 02/22/2020. Reason For Study: Shortness of breath. Findings: Cardiac silhouette is normal in size. Aorta is atherosclerotic. Lungs are diminished in volume. A spiculated opacity is redemonstrated at the left base. Loculated pneumothorax is redemonstrated at the left costophrenic angle. Osseous structures appear intact. Subcutaneous emphysema is observed laterally on the left. Support Devices: Thoracostomy tubes project at the left apex and base. Conclusion(s): 1. Left basilar nodule with no change. 2. Regressing left basilar pneumothorax. 3. Left-sided subcutaneous emphysema with no significant change. 4. Stable position of thoracostomy tubes. Report Dictated on --- Final --- Dictated: 02/23/2020 7:17 am Dictating Physician: MD GARCÍA B NELSON Signed Date and Time: 02/23/2020 7:22 am Signed by: MD GARCÍA B NELSON Transcribed Date and Time: 02/23/2020 7:17 [employer] [place] Patient Name: OSWALDO ALANIZ Diagnostic Radiology ACCESSION EXAM DATE/TIME PROCEDURE ORDERING PROVIDER [id number] 02/23/2020 06:49 EST CR Chest Portable MD SULLIVAN MAZEN E CPT code 24850 Reason For Exam (CR Chest Portable) sob Report Examination: Portable Chest, 0640 hours 02/23/2020. Comparison: 02/22/2020. Reason For Study: Shortness of breath. Findings: Cardiac silhouette is normal in size. Aorta is atherosclerotic. Lungs are diminished in volume. A spiculated opacity is redemonstrated at the left base. Loculated pneumothorax is redemonstrated at the left costophrenic angle. Osseous structures appear intact. Subcutaneous emphysema is observed laterally on the left. Support Devices: Thoracostomy tubes project at the left apex and base. Conclusion(s): 1. Left basilar nodule with no change. 2. Regressing left basilar pneumothorax. 3. Left-sided subcutaneous emphysema with no significant change. 4. Stable position of thoracostomy tubes. Report Dictated on --- Final --- Dictated: 02/23/2020 7:17 am Dictating Physician: MD GARCÍA B NELSON Signed Date and Time: 02/23/2020 7:22 am Signed by: MD GARCÍA B NELSON Transcribed Date and Time: 02/23/2020 7:17 [facility] [place] Add On Lab Teston 02-22-2020 Sodium [Moles/Vol] Accepted [facility] HOSPITALAd [facility] [employer] [place] Comment on above: Specimen available & acceptable for analysis. Test Performed by [facility], [address] [place] [address] [facility], [place] Add on test from HISon 02-21 Add on test from [facility] Accepted Normal [facility] Comment on above: Result Comment: Spec imen available & acceptable for analysis. Performed By: #### A DDON #### [facility] [address] [place], [place] Basic Metabolic Panelon 01-31 Calcium [Mass/Vol] 8.5 mg/dL Normal 8.4-10.4 [facility] Comment on above: Performed By: #### H EMDF BMP3 #### [facility] [address] [place], [place] Glucose [Mass/Vol] 141 mg/dL High 70-100 [facility] Comment on above: Performed By: #### H EMDF, BMP3 #### [facility] [address] [place], [place] Urea nitrogen [Mass/Vol] 30 mg/dL High 7-20 [facility] Comment on above: Performed By: #### H EMDF, BMP3 #### [place] [address] [address] [place], [place] Anion gap [Moles/Vol] 7 Normal [facility] Comment on above: Performed By: #### H EMDF, BMP3 #### [place] [address] [address] [place], [place] CO2 [Moles/Vol] 20 mmol/L Low 22-30 [facility] Comment on above: Performed By: #### H EMDF, BMP3 #### [facility] [address] [place] [place], [place] Creatinine [Mass/Vol] 0.80 mg/dL Normal 0.52-1.25 [facility] Comment on above: Performed By: #### H EMDF, BMP3 #### [facility] [address] [place], [place] GFR/1.73 sq M predicted among blacks MDRD (S/P/Bld) [Vol rate/Area] mL/min/{1.73_m2} Normal >60 [facility] Comment on above: Performed By: #### H RENETTA RAPHAEL3 #### [place] [address] [address] [place], [place] GFR/1.73 sq M predicted among non-blacks MDRD (S/P/Bld) [Vol rate/Area] 85.8 mL/min/{1.73_m2} Normal >60 [facility] Comment on above: Result Comment: KDIG O guidelines provide the following GFR categories: Stage GFR(ml/min/1.73 m2) Terms G1 >=90 Normal or high G2 60-89 Mildly decreased* G3a 45-59 Mildly to moderately decreased G3b 30-44 Moderately to severely decreased G4 15-29 Severely decreased G5 <15 Kidney failure *Relative to young adult level. In the absence of evidence of kidney damage, neither GFR category G1 nor G2 fulfill the criteria for CKD. The CKD-EPI equation is validated in individuals 18 years of age and older. Currently the best equation for estimating glomerular filtration rate (GFR) from serum creatinine in children is the Bedside Vasquez equation. It is less accurate in patients with extremes of muscle mass, restriction of dietary protein, ingestion of creatine, extra-renal metabolism of creatinine, or treatment with medications that affect renal tubular creatinine secretion. Performed By: #### H RENETTA RAPHAEL3 #### [place] [address] [address] [place], [place] Potassium [Moles/Vol] 5.2 mmol/L High 3.5-5.1 [facility] Comment on above: Result Comment: Slig htly hemolysed, interpret with caution. Performed By: #### H IJEOMA BMP3 #### [place] [address] [address] [place], [place] Sodium [Moles/Vol] 133 mmol/L Low 135-145 [facility] Comment on above: Performed By: #### H IJEOMA BMP3 #### [address] Chloride [Moles/Vol] 107 mmol/L Normal 98-107 [facility] Comment on above: Performed By: #### H IJEOMA BMP3 #### [place] [address] [place] [address] Anion gap [Moles/Vol] 7 mmol/L [place], [place] Calcium [Mass/Vol] 8.5 mg/dL 8.4 - 10. 4 mg/dL [place], [place] Chloride [Moles/Vol] 107 mmol/L 98 - 10 7 mmol/L [place] CO2 [Moles/Vol] 20 mmol/L Low 22 - 30 mmol/L [place] Creatinine [Mass/Vol] 0.8 mg/dL 0.52 - 1.25 mg/dL [place] EGFR IF NonAfrican [place]isian 85.8 mL/min >60 [place], [place] Comment on above: KDIGO guidelines pro vide the following GFR categories: Stage GFR(ml/min/1.73 m2) Terms G1 >=90 Normal or high G2 60-89 Mildly decreased* G3a 45-59 Mildly to moderately decreased G3b 30-44 Moderately to severely decreased G4 15-29 Severely decreased G5 <15 Kidney failure *Relative to young adult level. In the absence of evidence of kidney damage, neither GFR category G1 nor G2 fulfill the criteria for CKD. The CKD-EPI equation is validated in individuals 18 years of age and older. Currently the best equation for estimating glomerular filtration rate (GFR) from serum creatinine in children is the Bedside Vasquez equation. It is less accurate in patients with extremes of muscle mass, restriction of dietary protein, ingestion of creatine, extra-renal metabolism of creatinine, or treatment with medications that affect renal tubular creatinine secretion. GFR/1.73 sq M predicted among blacks MDRD (S/P/Bld) [Vol rate/Area] mL/min/{1.73_m2} >60 mL/min [place], [place] Glucose [Mass/Vol] 141 mg/dL High 70 - 100 mg/dL [place] Interpretation and review of laboratory results Abnormal [place] Potassium [Moles/Vol] 5.2 mmol/L High 3.5 - 5.1 mmol/L [place] Comment on above: Slightly hemolysed, interpret with caution. Sodium [Moles/Vol] 133 mmol/L Low 135 - 145 mmol/L [place] Urea nitrogen [Mass/Vol] 30 mg/dL High 7 - 20 mg/dL [place] Test Performed by [facility], [address] [place] [address], [place] [address] [place], [place] CBC auto differentialon 01-31 Absolute Baso # 0.0 10*3/uL 0 - 0.2 10*3/uL [place] Absolute Neut # 8.8 10*3/uL High 1.8 - 7 10*3/uL [place] Basophils/100 WBC (Bld) 0.2 % 0 - 2 % [place] Eosinophils (Bld) [#/Vol] 0.0 10*3/uL 0 - 0.5 10*3/uL [place] Eosinophils/100 WBC (Bld) 0.4 % Low 1 - 6 % [place] Erythrocyte distribution width (RBC) [Ratio] 14.9 % High 11.5 - 14.5 % [place] Granulocytes/100 WBC (Bld) 90.0 % High 40 - 80 % [place] Hematocrit (Bld) [Volume fraction] 34.0 % Low 40 - 52 % [place] Hemoglobin (Bld) [Mass/Vol] 11.4 g/dL Low 13 - 18 g/dL [place] Interpretation and review of laboratory results Abnormal [place] Lymphocytes (Bld) [#/Vol] 0.3 10*3/uL Low 1 - 4.3 10*3/uL [place] Lymphocytes/100 WBC (Bld) 3.5 % Low 20 - 40 % [place] MCH (RBC) [Entitic mass] 30.3 pg 26 - 34 pg [place] MCHC (RBC) [Mass/Vol] 33.5 % 32 - 36 % [place], [place] MCV (RBC) [Entitic vol] 90.6 fL 80 - 98 fL [place], [place] Monocytes (Bld) [#/Vol] 0.6 10*3/uL 0 - 0.8 10*3/uL [place] Monocytes/100 WBC (Bld) 5.9 % 2 - 10 % [place] Platelet mean volume (Bld) [Entitic vol] 6.8 fL Low 7.4 - 10.4 fL [place] Platelets (Bld) [#/Vol] 233 10*3/uL 140 - 440 10*3/uL [place] RBC (Bld) [#/Vol] 3.76 10*6/uL Low 4.4 - 5.9 10*6/uL [place] WBC (Bld) [#/Vol] 9.7 10*3/uL 3.6 - 10.7 10*3/uL [place] Test Performed by [facility], [address] [place] [id number] [place] [address] CR Chest Portableon 02-22-20 20 CR Chest Portable Patient Name: OSWALDO CORLEY Diagnostic Radiology ACCESSION EXAM DATE/TIME PROCEDURE ORDERING PROVIDER [id number] 02/22/2020 07:06 EST CR Chest Portable MD SULLIVAN MAZEN E CPT code 81760 Reason For Exam (CR Chest Portable) sob Report PORTABLE CHEST X-RAY CLINICAL INDICATION: Shortness of breath A portable frontal view of the chest was obtained. COMPARISON: 02/21/2020 FINDINGS: Heart size is within normal limits. Left-sided chest tubes are unchanged in position. There is a small left basilar pneumothorax, somewhat smaller in size when compared to the study from the day prior. Subcutaneous emphysema within the left chest wall appears to be increasing. There is streaky atelectasis within the left and right lung bases. IMPRESSION: Left-sided chest tubes unchanged in position. Small left basilar pneumothorax, slightly decreased in size when compared to the prior study. Increasing subcutaneous emphysema within the left chest wall. Stable bilateral basilar atelectasis. Report Dictated on Final Dictated: 02/22/2020 7:30 am Dictating Physician: MD BORREGO JONATHAN R Signed Date and Time: 02/22/2020 7:31 am Signed by: MD BORREGO JONATHAN R Transcribed Date and Time: 02/22/2020 7:30 Normal [facility] EKG 12 [place] 02-22-2020 Hardeep, [facility] Incoming Cardiology Results From [facility] - 02/22/2020 10:19 AM EST [facility] Test Date: 2020-02-22 Pat Name: Oswaldo Corley Department: 1AT2 Room: T219 Gender: M Tray Drier: FREDERICK : 1940 Requested By: ALETHEA MENDOZA Order Number: [id number] Reading MD: Malgorzata Man Measurements Intervals [place] Rate: 81 P: 52 WY: 181 QRS: 41 QRSD: 85 T: 25 QT: 378 QTc: 439 Interpretive Statements Sinus rhythm Abnormal R-wave progression, early transition Electronically Signed On 02-22-2020 10:18:14 EST by Malgorzata Man [facility] Test Date: 2020-02-22 Pat Name: Oswaldo Corley Department: 1AT2 Room: T219 Gender: M Tray Drier: SHANIAJustus : 1940 Requested By: ALETHEA MENDOZA Order Number: [id number] Reading MD: Malgorzata Man Measurements Intervals [place] Rate: 81 P: 52 WY: 181 QRS: 41 QRSD: 85 T: 25 QT: 378 QTc: 439 Interpretive Statements Sinus rhythm Abnormal R-wave progression, early transition Electronically Signed On 02-22-2020 10:18:14 EST by Malgorzata [employer] [place], [place] Hemogram w/ Autodiffon 02-21 Abs Baso Cnt 0.0 10*3/uL Normal 0.0-0.2 [facility] Comment on above: Performed By: #### H IJEOMA BMP3 #### [facility] [address] [place] [address] Abs Neutrophile Cnt 8.8 10*3/uL High 1.8-7.0 [facility] Comment on above: Performed By: #### H IJEOMA BMP3 #### [facility] [address] [place] [address] Basophils/100 WBC (Bld) 0.2 % Normal 0.0-2.0 [facility] Comment on above: Performed By: #### H IJEOMA BMP3 #### [facility] [address] [place], [place] Eosinophils (Bld) [#/Vol] 0.0 10*3/uL Normal 0.0-0.5 [facility] Comment on above: Performed By: #### H IJEOMA BMP3 #### [facility] [address] [place], [place] Eosinophils/100 WBC (Bld) 0.4 % Low 1.0-6.0 [facility] Comment on above: Performed By: #### H IJEOMA BMP3 #### [facility] [address] [place], [place] Erythrocyte distribution width (RBC) [Ratio] 14.9 % High 11.5-14.5 [facility] Comment on above: Performed By: #### H IJEOMA BMP3 #### [place] [address] [place], [place] Granulocytes/100 WBC (Bld) 90.0 % High 40.0-80.0 [facility] Comment on above: Performed By: #### H IJEOMA BMP3 #### [place] [address] [place], [place] Hematocrit (Bld) [Volume fraction] 34.0 % Low 40.0-52.0 [facility] Comment on above: Performed By: #### H IJEOMA BMP3 #### [place] [address] [place], [place] Hemoglobin (Bld) [Mass/Vol] 11.4 g/dL Low 13.0-18.0 [facility] Comment on above: Performed By: #### H EMDYuri, BMP3 #### [facility] [address] [place], [place] Lymphocytes (Bld) [#/Vol] 0.3 10*3/uL Low 1.0-4.3 [facility] Comment on above: Performed By: #### H EMDYuri, BMP3 #### [facility] [address] [place] [address] Lymphocytes/100 WBC (Bld) 3.5 % Low 20.0-40.0 [facility] Comment on above: Performed By: #### H TRICEF, BMP3 #### [facility] [address] [place], [place] MCH (RBC) [Entitic mass] 30.3 pg Normal 26.0-34.0 [facility] Comment on above: Performed By: #### H EMDF, BMP3 #### [facility] [address] [place], [place] MCHC (RBC) [Mass/Vol] 33.5 % Normal 32.0-36.0 [facility] Comment on above: Performed By: #### H EMDF, BMP3 #### [place] [address] [address] [place], [place] MCV (RBC) [Entitic vol] 90.6 fL Normal 80.0-98.0 [facility] Comment on above: Performed By: #### H EMDF, BMP3 #### [place] [address] [place], [place] Monocytes (Bld) [#/Vol] 0.6 10*3/uL Normal 0.0-0.8 [facility] Comment on above: Performed By: #### H EMDF, BMP3 #### [place] [address] [place], [place] Monocytes/100 WBC (Bld) 5.9 % Normal 2.0-10.0 [facility] Comment on above: Performed By: #### H EMDF, BMP3 #### [place] [address] [place], [place] Platelet mean volume (Bld) [Entitic vol] 6.8 fL Low 7.4-10.4 [facility] Comment on above: Performed By: #### H EMDF, BMP3 #### [place] [address] [place], [place] Platelets (Bld) [#/Vol] 233 10*3/uL Normal 140-440 [facility] Comment on above: Performed By: #### H EMDF, BMP3 #### [place] [address] [place], [place] RBC (Bld) [#/Vol] 3.76 10*6/uL Low 4.40-5.90 [facility] Comment on above: Performed By: #### H EMDF, BMP3 #### [facility] [address] [place] [address] WBC (Bld) [#/Vol] 9.7 10*3/uL Normal 3.6-10.7 [facility] Comment on above: Performed By: #### H EMDF, BMP3 #### [facility] [address] [place] [address] XR CHEST PORTABLEon 02-22-20 20 Hardeep, [facility] Incoming Radiology [facility] - 02/22/2020 7:32 AM EST Patient Name: OSWALDO CORLEY Diagnostic Radiology ACCESSION EXAM DATE/TIME PROCEDURE ORDERING PROVIDER [id number] 02/22/2020 07:06 EST CR Chest Portable MD SULLIVAN MAZEN E CPT code 13220 Reason For Exam (CR Chest Portable) sob Report PORTABLE CHEST X-RAY CLINICAL INDICATION: Shortness of breath A portable frontal view of the chest was obtained. COMPARISON: 02/21/2020 FINDINGS: Heart size is within normal limits. Left-sided chest tubes are unchanged in position. There is a small left basilar pneumothorax, somewhat smaller in size when compared to the study from the day prior. Subcutaneous emphysema within the left chest wall appears to be increasing. There is streaky atelectasis within the left and right lung bases. IMPRESSION: Left-sided chest tubes unchanged in position. Small left basilar pneumothorax, slightly decreased in size when compared to the prior study. Increasing subcutaneous emphysema within the left chest wall. Stable bilateral basilar atelectasis. Report Dictated on --- Final --- Dictated: 02/22/2020 7:30 am Dictating Physician: MD BORREGO JONATHAN R Signed Date and Time: 02/22/2020 7:31 am Signed by: MD BORREGO JONATHAN R Transcribed Date and Time: 02/22/2020 7:30 [facility] [place] Patient Name: OSWALDO CORLEY Diagnostic Radiology ACCESSION EXAM DATE/TIME PROCEDURE ORDERING PROVIDER [id number] 02/22/2020 07:06 EST CR Chest Portable MD NATE, MIANCortez Davila CPT code 37308 Reason For Exam (CR Chest Portable) sob Report PORTABLE CHEST X-RAY CLINICAL INDICATION: Shortness of breath A portable frontal view of the chest was obtained. COMPARISON: 02/21/2020 FINDINGS: Heart size is within normal limits. Left-sided chest tubes are unchanged in position. There is a small left basilar pneumothorax, somewhat smaller in size when compared to the study from the day prior. Subcutaneous emphysema within the left chest wall appears to be increasing. There is streaky atelectasis within the left and right lung bases. IMPRESSION: Left-sided chest tubes unchanged in position. Small left basilar pneumothorax, slightly decreased in size when compared to the prior study. Increasing subcutaneous emphysema within the left chest wall. Stable bilateral basilar atelectasis. Report Dictated on --- Final --- Dictated: 02/22/2020 7:30 am Dictating Physician: MD BORREGO JONATHAN R Signed Date and Time: 02/22/2020 7:31 am Signed by: MD BORREGO JONATHAN R Transcribed Date and Time: 02/22/2020 7:30 [place], [place] Basic Metabolic Panelon 12-2 Calcium [Mass/Vol] 8.2 mg/dL Low 8.4-10.4 [facility] Comment on above: Performed By: #### B MP3, HEMDF #### [facility] [address] [place], [place] Anion gap [Moles/Vol] 8 Normal [facility] Comment on above: Performed By: #### B MP3, HEMDF #### [facility] [address] [place], [place] CO2 [Moles/Vol] 22 mmol/L Normal 22-30 [facility] Comment on above: Performed By: #### B MP3, HEMDF #### [facility] [address] [place], [place] Creatinine [Mass/Vol] 0.76 mg/dL Normal 0.52-1.25 [facility] Comment on above: Performed By: #### B MP3, HEMDF #### [facility] [address] [place] [address] GFR/1.73 sq M predicted among blacks MDRD (S/P/Bld) [Vol rate/Area] mL/min/{1.73_m2} Normal >60 [facility] Comment on above: Performed By: #### B MP3, HEMDF #### [facility] [address] [place] [address] GFR/1.73 sq M predicted among non-blacks MDRD (S/P/Bld) [Vol rate/Area] 87.6 mL/min/{1.73_m2} Normal >60 [facility] Comment on above: Result Comment: KDIG O guidelines provide the following GFR categories: Stage GFR(ml/min/1.73 m2) Terms G1 >=90 Normal or high G2 60-89 Mildly decreased* G3a 45-59 Mildly to moderately decreased G3b 30-44 Moderately to severely decreased G4 15-29 Severely decreased G5 <15 Kidney failure *Relative to young adult level. In the absence of evidence of kidney damage, neither GFR category G1 nor G2 fulfill the criteria for CKD. The CKD-EPI equation is validated in individuals 18 years of age and older. Currently the best equation for estimating glomerular filtration rate (GFR) from serum creatinine in children is the Bedside Vasquez equation. It is less accurate in patients with extremes of muscle mass, restriction of dietary protein, ingestion of creatine, extra-renal metabolism of creatinine, or treatment with medications that affect renal tubular creatinine secretion. Performed By: #### B MP3, HEMDF #### [facility] [address] [place] [address] Glucose [Mass/Vol] 144 mg/dL High 70-100 [facility] Comment on above: Performed By: #### B MP3, HEMDF #### [facility] [address] [place] [address] Urea nitrogen [Mass/Vol] 22 mg/dL High 7-20 [facility] Comment on above: Performed By: #### B MP3, HEMDF #### [facility] [address] [place] [address] Chloride [Moles/Vol] 104 mmol/L Normal 98-107 [facility] Comment on above: Performed By: #### B MP3, HEMDF #### [facility] [address] [place], [place] Potassium [Moles/Vol] 5.0 mmol/L Normal 3.5-5.1 [facility] Comment on above: Performed By: #### B MP3, HEMDF #### [facility] [address] [place], [place] Sodium [Moles/Vol] 134 mmol/L Low 135-145 [facility] Comment on above: Performed By: #### B MP3, HEMDF #### [facility] [address] [place], [place] Anion gap [Moles/Vol] 8 mmol/L [place], [place] Calcium [Mass/Vol] 8.2 mg/dL Low 8.4 - 10. 4 mg/dL [place], [place] Chloride [Moles/Vol] 104 mmol/L 98 - 10 7 mmol/L [place] CO2 [Moles/Vol] 22 mmol/L 22 - 30 mmol/L [place] Creatinine [Mass/Vol] 0.76 mg/dL 0.52 - 1.25 mg/dL [place] EGFR IF NonAfrican [place]isian 87.6 mL/min >60 [place] Comment on above: KDIGO guidelines pro vide the following GFR categories: Stage GFR(ml/min/1.73 m2) Terms G1 >=90 Normal or high G2 60-89 Mildly decreased* G3a 45-59 Mildly to moderately decreased G3b 30-44 Moderately to severely decreased G4 15-29 Severely decreased G5 <15 Kidney failure *Relative to young adult level. In the absence of evidence of kidney damage, neither GFR category G1 nor G2 fulfill the criteria for CKD. The CKD-EPI equation is validated in individuals 18 years of age and older. Currently the best equation for estimating glomerular filtration rate (GFR) from serum creatinine in children is the Bedside Vasquez equation. It is less accurate in patients with extremes of muscle mass, restriction of dietary protein, ingestion of creatine, extra-renal metabolism of creatinine, or treatment with medications that affect renal tubular creatinine secretion. GFR/1.73 sq M predicted among blacks MDRD (S/P/Bld) [Vol rate/Area] mL/min/{1.73_m2} >60 mL/min [place] Glucose [Mass/Vol] 144 mg/dL High 70 - 100 mg/dL [place] Interpretation and review of laboratory results Abnormal [place] Potassium [Moles/Vol] 5.0 mmol/L 3.5 - 5.1 mmol/L [place] Sodium [Moles/Vol] 134 mmol/L Low 135 - 145 mmol/L [place] Urea nitrogen [Mass/Vol] 22 mg/dL High 7 - 20 mg/dL [place] Test Performed by [facility], [address] [place] [id number] [place] [address] CBC auto differentialon - Absolute Baso # 0.0 10*3/uL 0 - 0.2 10*3/uL [place] Absolute Neut # 8.5 10*3/uL High 1.8 - 7 10*3/uL [place] Basophils/100 WBC (Bld) 0.3 % 0 - 2 % [place] Eosinophils (Bld) [#/Vol] 0.0 10*3/uL 0 - 0.5 10*3/uL [place] Eosinophils/100 WBC (Bld) 0.0 % Low 1 - 6 % [place] Erythrocyte distribution width (RBC) [Ratio] 14.6 % High 11.5 - 14.5 % [place] Granulocytes/100 WBC (Bld) 89.6 % High 40 - 80 % [place] Hematocrit (Bld) [Volume fraction] 33.4 % Low 40 - 52 % [place] Hemoglobin (Bld) [Mass/Vol] 11.1 g/dL Low 13 - 18 g/dL [place] Interpretation and review of laboratory results Abnormal [place] Lymphocytes (Bld) [#/Vol] 0.3 10*3/uL Low 1 - 4.3 10*3/uL [place] Lymphocytes/100 WBC (Bld) 2.9 % Low 20 - 40 % [place] MCH (RBC) [Entitic mass] 30.1 pg 26 - 34 pg [place] MCHC (RBC) [Mass/Vol] 33.1 % 32 - 36 % [place] MCV (RBC) [Entitic vol] 90.8 fL 80 - 98 fL [place] Monocytes (Bld) [#/Vol] 0.7 10*3/uL 0 - 0.8 10*3/uL [place] Monocytes/100 WBC (Bld) 7.2 % 2 - 10 % [place] Platelet mean volume (Bld) [Entitic vol] 6.8 fL Low 7.4 - 10.4 fL [place] Platelets (Bld) [#/Vol] 229 10*3/uL 140 - 440 10*3/uL [place] RBC (Bld) [#/Vol] 3.68 10*6/uL Low 4.4 - 5.9 10*6/uL [place] WBC (Bld) [#/Vol] 9.5 10*3/uL 3.6 - 10.7 10*3/uL [place] Test Performed by [id number] [place] [address] CR Chest Portableon 02-21-20 20 CR Chest Portable Patient Name: OSWALDO CORLEY Diagnostic Radiology ACCESSION EXAM DATE/TIME PROCEDURE ORDERING PROVIDER [id number] 02/21/2020 07:37 EST CR Chest Portable MD SULLIVAN MAZEN E CPT code 69049 Reason For Exam (CR Chest Portable) sob Report PORTABLE CHEST X-RAY CLINICAL INDICATION: Shortness of breath A portable frontal view of the chest was obtained. COMPARISON: 02/20/2020 FINDINGS: Heart size is within normal limits. Sternotomy wires and left basilar chest tubes are unchanged. Small left basilar pneumothorax is noted, similar or perhaps slightly increased when compared to the study from the day prior. Streaky atelectasis within the lung bases is grossly unchanged. No new areas of consolidation are seen. No significant pleural effusion is identified. There are degenerative changes of the spine. IMPRESSION: Left-sided chest tubes are unchanged in position. Small left basilar pneumothorax appears similar or slightly increased in size when compared to the prior examination. Streaky atelectasis within the lung bases, unchanged. Report Dictated on Final Dictated: 02/21/2020 8:12 am Dictating Physician: MD BORREGO JONATHAN R Signed Date and Time: 02/21/2020 8:13 am Signed by: MD BORREGO JONATHAN R Transcribed Date and Time: 02/21/2020 8:12 Normal [facility] Hemogram w/ Autodiffon 02-20 Abs Baso Cnt 0.0 10*3/uL Normal 0.0-0.2 [facility] Comment on above: Performed By: #### B MP3, HEMDF #### [facility] [address] [place] [address] Abs Neutrophile Cnt 8.5 10*3/uL High 1.8-7.0 [facility] Comment on above: Performed By: #### B MP3, HEMDF #### [facility] [address] [place] [address] Basophils/100 WBC (Bld) 0.3 % Normal 0.0-2.0 [facility] Comment on above: Performed By: #### B MP3, HEMDF #### [facility] [address] [place] [address] Eosinophils (Bld) [#/Vol] 0.0 10*3/uL Normal 0.0-0.5 [facility] Comment on above: Performed By: #### B MP3, HEMDF #### [facility] [address] [place] [address] Eosinophils/100 WBC (Bld) 0.0 % Low 1.0-6.0 [facility] Comment on above: Performed By: #### B MP3, HEMDF #### [facility] [address] [place] [address] Erythrocyte distribution width (RBC) [Ratio] 14.6 % High 11.5-14.5 [facility] Comment on above: Performed By: #### B MP3, HEMDF #### [facility] [address] [place] Granulocytes/100 WBC (Bld) 89.6 % High 40.0-80.0 [facility] Comment on above: Performed By: #### B MP3, HEMDF #### [facility] [address] [place] Hematocrit (Bld) [Volume fraction] 33.4 % Low 40.0-52.0 [facility] Comment on above: Performed By: #### B MP3, HEMDF #### [place] [address] [address] [place], [place] Hemoglobin (Bld) [Mass/Vol] 11.1 g/dL Low 13.0-18.0 [facility] Comment on above: Performed By: #### B MP3, HEMDF #### [place] [address] [address] [place] Lymphocytes (Bld) [#/Vol] 0.3 10*3/uL Low 1.0-4.3 [facility] Comment on above: Performed By: #### B MP3, HEMDF #### [place] [address] [place] Lymphocytes/100 WBC (Bld) 2.9 % Low 20.0-40.0 [facility] Comment on above: Performed By: #### B MP3, HEMDF #### [place] [address] [place] MCH (RBC) [Entitic mass] 30.1 pg Normal 26.0-34.0 [facility] Comment on above: Performed By: #### B MP3, HEMDF #### [place] [address] [place] MCHC (RBC) [Mass/Vol] 33.1 % Normal 32.0-36.0 [facility] Comment on above: Performed By: #### B MP3, HEMDF #### [place] [address] [place] MCV (RBC) [Entitic vol] 90.8 fL Normal 80.0-98.0 [facility] Comment on above: Performed By: #### B MP3, HEMDF #### [facility] [place] [address] [place], [place] Monocytes (Bld) [#/Vol] 0.7 10*3/uL Normal 0.0-0.8 [facility] Comment on above: Performed By: #### B MP3, HEMDF #### [facility] [place] [address] [address] [place], [place] Monocytes/100 WBC (Bld) 7.2 % Normal 2.0-10.0 [facility] Comment on above: Performed By: #### B MP3, HEMDF #### [facility] [place] [address] [place], [place] Platelet mean volume (Bld) [Entitic vol] 6.8 fL Low 7.4-10.4 [facility] Comment on above: Performed By: #### B MP3, HEMDF #### [facility] [place] [address] [place], [place] Platelets (Bld) [#/Vol] 229 10*3/uL Normal 140-440 [facility] Comment on above: Performed By: #### B MP3, HEMDF #### [facility] [place] [address] [place], [place] RBC (Bld) [#/Vol] 3.68 10*6/uL Low 4.40-5.90 [facility] Comment on above: Performed By: #### B MP3, HEMDF #### [facility] [place] [address] [place], [place] WBC (Bld) [#/Vol] 9.5 10*3/uL Normal 3.6-10.7 [facility] Comment on above: Performed By: #### B MP3, HEMDF #### [facility] [place] [address] [place], [place] XR CHEST PORTABLEon 02-21-20 Hardeep, [facility] Incoming Radiology Results From [facility] - 02/21/2020 8:14 AM EST Patient Name: OSWALDO CORLEY Diagnostic Radiology ACCESSION EXAM DATE/TIME PROCEDURE ORDERING PROVIDER [id number] 02/21/2020 07:37 EST CR Chest Portable MD SULLIVAN MAZEN E CPT code 69412 Reason For Exam (CR Chest Portable) sob Report PORTABLE CHEST X-RAY CLINICAL INDICATION: Shortness of breath A portable frontal view of the chest was obtained. COMPARISON: 02/20/2020 FINDINGS: Heart size is within normal limits. Sternotomy wires and left basilar chest tubes are unchanged. Small left basilar pneumothorax is noted, similar or perhaps slightly increased when compared to the study from the day prior. Streaky atelectasis within the lung bases is grossly unchanged. No new areas of consolidation are seen. No significant pleural effusion is identified. There are degenerative changes of the spine. IMPRESSION: Left-sided chest tubes are unchanged in position. Small left basilar pneumothorax appears similar or slightly increased in size when compared to the prior examination. Streaky atelectasis within the lung bases, unchanged. Report Dictated on --- Final --- Dictated: 02/21/2020 8:12 am Dictating Physician: MD BORREGO JONATHAN R Signed Date and Time: 02/21/2020 8:13 am Signed by: MD BORREGO JONATHAN R Transcribed Date and Time: 02/21/2020 8:12 [place] Patient Name: OSWALDO ALANIZ Diagnostic Radiology ACCESSION EXAM DATE/TIME PROCEDURE ORDERING PROVIDER [id number] 02/21/2020 07:37 EST CR Chest Portable MD SULLIVAN MAZEN E CPT code 42724 Reason For Exam (CR Chest Portable) sob Report PORTABLE CHEST X-RAY CLINICAL INDICATION: Shortness of breath A portable frontal view of the chest was obtained. COMPARISON: 02/20/2020 FINDINGS: Heart size is within normal limits. Sternotomy wires and left basilar chest tubes are unchanged. Small left basilar pneumothorax is noted, similar or perhaps slightly increased when compared to the study from the day prior. Streaky atelectasis within the lung bases is grossly unchanged. No new areas of consolidation are seen. No significant pleural effusion is identified. There are degenerative changes of the spine. IMPRESSION: Left-sided chest tubes are unchanged in position. Small left basilar pneumothorax appears similar or slightly increased in size when compared to the prior examination. Streaky atelectasis within the lung bases, unchanged. Report Dictated on --- Final --- Dictated: 02/21/2020 8:12 am Dictating Physician: MD BORREGO JONATHAN R Signed Date and Time: 02/21/2020 8:13 am Signed by: MD BORREGO JONATHAN R Transcribed Date and Time: 02/21/2020 8:12 [place] CR Chest Portableon 02-20-20 20 CR Chest Portable Patient Name: OSWALDO CORLEY Diagnostic Radiology ACCESSION EXAM DATE/TIME PROCEDURE ORDERING PROVIDER [id number] 02/20/2020 14:41 EST CR Chest Portable MD SULLIVAN MAZEN E CPT code 68690 Reason For Exam (CR Chest Portable) s/p thoracotomy Report INDICATION:Status post thoracotomy. Portable AP chest. COMPARISON: None. Left-sided chest tubes are present. There is a small left apical pneumothorax. Upper chest tube extends to the apex. Lower radiopaque tube appears related to a drainage catheter. Atelectasis at the left lung base. No gross pleural effusion. Soft tissue air is present, correlating with recent intervention. Heart and mediastinal contours appear within normal limits for the patient's age and for a portable AP technique. Atherosclerotic calcifications of the thoracic aorta noted. IMPRESSION: Status post removal of the left lower lung. Drainage tube and a chest tube are present. Small pneumothorax involving the lateral lower hemithorax and left apex. Report Dictated on Final Dictated: 02/20/2020 2:43 pm Dictating Physician: MD ARIAS LAURA Signed Date and Time: 02/20/2020 2:47 pm Signed by: MD ARIAS LAURA Transcribed Date and Time: 02/20/2020 2:43 Normal [facility] Surgical Pathologyon 020 Surgical Pathology [id number] [facility] [place] [facility] PATHOLOG[facility] LABORAT[facility] MEDICINE [address] [place] [id number] FINAL SURGICAL PATHOLOGY REPORT NAME: OSWALDO CORLEY : 1940 79 Y M BRENDA NO.: [id number] LOCATION: [facility] PROCEDURE 02/20/2020 DATE: SURGEON: OLIVERIO HERRMANN M.D. RECEIVED 02/20/2020 DATE: ATTENDING: OLIVERIO HERRMANN M.D. REPORT DATE: 02/28/2020 COPIES TO: DIAGNOSIS: A. 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 Comment: Deeper levels on the frozen section and additional permanent sections showed squamous cell carcinoma focally extending to inked parenchymal margin. Results discussed with Dr. Herrmann via Perfect Serve on 02/28/2020. B. PLEURA, BIOPSY - FIBROUS TISSUE WITH HEMORRHAGE AND BACKGROUND BLOOD CLOT. NEGATIVE FOR MALIGNANCY. SPECIMEN Procedure: Wedge resection Specimen Laterality: Left TUMOR Tumor Site: Lower lobe of lung Histologic Type: Invasive squamous cell carcinoma, keratinizing Histologic Grade: G2: Moderately differentiated Spread Through Air Spaces (NICK): Not identified Total Tumor Size (size of entire tumor): Greatest Dimension (Centimeters) - 1.1 x 0.9 x 0.8 cm Size of Invasive Component: Greatest Dimension (Centimeters) - 1.1 cm Tumor Focality: Single focus Visceral Pleura Invasion: Not identified Direct Invasion of Adjacent Structures: No adjacent structures present Treatment Effect: No known presurgical therapy Lymphovascular Invasion: Not identified MARGINS Bronchial Margin: Not applicable Vascular Margin: Not applicable Parenchymal Margin: Positive for invasive carcinoma LYMPH NODES Regional Lymph Nodes: No lymph nodes submitted or found PATHOLOGIC STAGE CLASSIFICATION (pTNM, AJCC 8th Edition) Note: Reporting of pT, pN, and (when applicable) pM categories is based on information available to the pathologist at the time the report is issued. As per the AJCC (Chapter 1, 8th Ed.) it is the managing physician's responsibility to establish the final pathologic stage based upon all pertinent information, including but potentially not limited to this pathology report. Primary Tumor (pT): pT1b Regional Lymph Nodes (pN): pNX BOOKING AGENT TUMOR BLOCK(S): A1, A6, A7 CRH/CRH Signature> JASMIN BAZAN M.D. CLINICAL INFORMATION: J90 SPECIMEN: (A) LUNG, WEDGE BIOPSY/EXCISION (B) PLEURA INTRAOPERATIVE CONSULTATION/FROZEN SECTION DIAGNOSIS: FROZEN SECTION DIAGNOSIS: FSA1: Left lower lobe - Squamous cell carcinoma, 1 mm from inked margin on section frozen. Pascual Leung M.D., Lois Bazan M.D. GROSS DESCRIPTION: A. Received fresh for intraoperative consultation and labeled left lower lobe is a red-darling wedge of lung which measures 8.7 x 6.2 x 2.1 cm. Stapled suture line is removed and the margin is inked blue. A darling-greene mass which measures 1.1 x 0.9 x 0.8 cm is present adjacent to parenchymal margin. Frozen section is performed and the remainder of the frozen section is submitted in A1. Further examining the specimen reveals brown-darling and spongy cut surfaces with areas of hemorrhage. Additional videotape sales representative sections are submitted. Cassette Summary: A1- remainder of frozen section, A2- section with area of hemorrhage, A3- margin, A4-5- additional sections that include the parenchymal margin. After review of initial slides, additional sections of lung including parenchymal margin and mass are submitted in cassettes A6-8. A9 contains another section of somewhat firm lung tissue. B. Received in formalin and labeled pleura are multiple fragments of brown-darling tissue that aggregate to 5 x 4 x 1.8 cm. The specimen is consistent with multiple fragments of pleura. The fragments are soft and muddy in texture. Sectioning through reveals no gross lesions. Multiple videotape sales representative sections are submitted in two cassettes. CRH/CRH Disclaimer: The following statement applies to all immunohistochemistry, in situ hybridization, molecular studies, and immunofluorescence testing. The use of one or more reagents in the above tests is regulated as an analyte specific reagent (ASR). These tests were developed and their performance characteristics determined by the clinical laboratories of [facility]. They have not been cleared by the US Food and Drug Administration (FDA). The FDA has determined that such clearance or approval is not necessary. All the above immunostains were performed on paraffin embedded tissue. Appropriate positive and negative controls (where applicable) were run in parallel with the patient's specimen; these controls showed expected staining pattern, with acceptable intensity of staining. Immunohistochemical assays have not been validated on decalcified tissues. Results should be interpreted with caution given the raised possibility of false negativity on decalcified specimens. Professional Performing Location: [place] [address]. DEPARTMENT OF PATHOLOGY AND LABORATORY MEDICINE [place], [place] [address] Normal [facility] XR CHEST PORTABLEon 02-20-[address] [place] [address] Incoming Radiology [facility] - 02/20/2020 2:48 PM EST Patient [facility]: [id number] Radiology ACCESSION EXAM DATE/TIME PROCEDURE ORDERING PROVIDER [id number] 02/20/2020 14:41 EST CR Chest Portable MD SULLIVAN MAZEN E CPT code 65754 Reason For Exam (CR Chest Portable) s/p thoracotomy Report INDICATION:Status post thoracotomy. Portable AP chest. COMPARISON: None. Left-sided chest tubes are present. There is a small left apical pneumothorax. Upper chest tube extends to the apex. Lower radiopaque tube appears related to a drainage catheter. Atelectasis at the left lung base. No gross pleural effusion. Soft tissue air is present, correlating with recent intervention. Heart and mediastinal contours appear within normal limits for the patient's age and for a portable AP technique. Atherosclerotic calcifications of the thoracic aorta noted. IMPRESSION: Status post removal of the left lower lung. Drainage tube and a chest tube are present. Small pneumothorax involving the lateral lower hemithorax and left apex. Report Dictated on --- Final --- Dictated: 02/20/2020 2:43 pm Dictating Physician: MD ARIAS LAURA Signed Date and Time: 02/20/2020 2:47 pm Signed by: MD ARIAS LAURA Transcribed Date and Time: 02/20/2020 2:43 [place], [place] Patient Name: [facility] COR[id number] Diagnostic Radiology ACCESSION EXAM DATE/TIME PROCEDURE ORDERING PROVIDER [id number] 02/20/2020 14:41 EST CR Chest Portable MD SULLIVAN MAZEN E CPT code 26477 Reason For Exam (CR Chest Portable) s/p thoracotomy Report INDICATION:Status post thoracotomy. Portable AP chest. COMPARISON: None. Left-sided chest tubes are present. There is a small left apical pneumothorax. Upper chest tube extends to the apex. Lower radiopaque tube appears related to a drainage catheter. Atelectasis at the left lung base. No gross pleural effusion. Soft tissue air is present, correlating with recent intervention. Heart and mediastinal contours appear within normal limits for the patient's age and for a portable AP technique. Atherosclerotic calcifications of the thoracic aorta noted. IMPRESSION: Status post removal of the left lower lung. Drainage tube and a chest tube are present. Small pneumothorax involving the lateral lower hemithorax and left apex. Report Dictated on --- Final --- Dictated: 02/20/2020 2:43 pm Dictating Physician: MD ARIAS LAURA Signed Date and Time: 02/20/2020 2:47 pm Signed by: MD ARIAS LAURA Transcribed Date and Time: 02/20/2020 2:43 [place], [place] SARS-CoV-2 (MICRO DEPT)on SARS-CoV-2 (MICRO DEPT) SARS-CoV-2 --> Status: F Not Detected. Expected Result: Not Detected _ Real-time, RT-PCR performed on the Qiagen QIAquant System by the [facility] Negative results do not preclude SARS-CoV-2 infection and should not be used as the sole basis for treatment or other patient management decisions. This assay was developed and its performance characteristics determined by the [facility] Immunology Service. This test has been developed under an Emergency Use Authorization (EUA) granted by the FDA for the qualitative detection of SARS-CoV-2 nucleic acid (validation review pending). Expected Result: Not Detected _ Real-time, RT-PCR performed on the Qiagen QIAquant System by the [facility] Negative results do not preclude SARS-CoV-2 infection and should not be used as the sole basis for treatment or other patient management decisions. This assay was developed and its performance characteristics determined by the [facility] Immunology Service. This test has been developed under an Emergency Use Authorization (EUA) granted by the FDA for the qualitative detection of SARS-CoV-2 nucleic acid (validation review pending). Normal [facility] Comment on above: Performed By: #### B MP3, HEMDF #### [facility] [address] [place], [place] Basic Metabolic Panelon 12-1 Calcium [Mass/Vol] 9.6 mg/dL Normal 8.4-10.4 [facility] Comment on above: Performed By: #### H GHCT BMP3M ####[facility] [place], [place] Glucose [Mass/Vol] 96 mg/dL Normal 70-100 [facility] Comment on above: Performed By: #### H GHCT BMP3M ####[place] [address] [place], [place] Anion gap [Moles/Vol] 8 Normal [facility] Comment on above: Performed By: #### H GHCT BMP3M ####[facility] [place], [place] CO2 [Moles/Vol] 26 mmol/L Normal 22-30 [facility] Comment on above: Performed By: #### H GHCT BMP3M ####[place] [address] [place], [place] Creatinine [Mass/Vol] 0.84 mg/dL Normal 0.52-1.25 [facility] Comment on above: Performed By: #### H KEISHA BMP3M ####[facility] [place], [place] GFR/1.73 sq M predicted among blacks MDRD (S/P/Bld) [Vol rate/Area] mL/min/{1.73_m2} Normal >60 [facility] Comment on above: Performed By: #### H PJCT BMP3M ####[place] [address] [place], [place] GFR/1.73 sq M predicted among non-blacks MDRD (S/P/Bld) [Vol rate/Area] 84.1 mL/min/{1.73_m2} Normal >60 [facility] Comment on above: Result Comment: KDIG O guidelines provide the following GFR categories: Stage GFR(ml/min/1.73 m2) Terms G1 >=90 Normal or high G2 60-89 Mildly decreased* G3a 45-59 Mildly to moderately decreased G3b 30-44 Moderately to severely decreased G4 15-29 Severely decreased G5 <15 Kidney failure *Relative to young adult level. In the absence of evidence of kidney damage, neither GFR category G1 nor G2 fulfill the criteria for CKD. The CKD-EPI equation is validated in individuals 18 years of age and older. Currently the best equation for estimating glomerular filtration rate (GFR) from serum creatinine in children is the Bedside Vasquez equation. It is less accurate in patients with extremes of muscle mass, restriction of dietary protein, ingestion of creatine, extra-renal metabolism of creatinine, or treatment with medications that affect renal tubular creatinine secretion. Performed By: #### H KEISHA BMP3M ####[facility] [place], [place] Urea nitrogen [Mass/Vol] 22 mg/dL High 7-20 [facility] Comment on above: Performed By: #### H KEISHA BMP3M ####[place] [address] [place], [place] Chloride [Moles/Vol] 106 mmol/L Normal 98-107 [facility] Comment on above: Performed By: #### H GHCT, BMP3M ####[facility] [place], [place] Potassium [Moles/Vol] 4.3 mmol/L Normal 3.5-5.1 [facility] Comment on above: Performed By: #### H GHCT, BMP3M ####[facility] [place], [place] Sodium [Moles/Vol] 140 mmol/L Normal 135-145 [facility] Comment on above: Performed By: #### H GHCT, BMP3M ####[place] [address] [place], [place] Basic Metabolic Panel w/ Ref eve to MG 02-16-2020 Anion gap [Moles/Vol] 8 mmol/L [place], [place] Calcium [Mass/Vol] 9.6 mg/dL 8.4 - 10. 4 mg/dL [place], [place] Chloride [Moles/Vol] 106 mmol/L 98 - 10 7 mmol/L [place], [place] CO2 [Moles/Vol] 26 mmol/L 22 - 30 mmol/L [place] Creatinine [Mass/Vol] 0.84 mg/dL 0.52 - 1.25 mg/dL [place], [place] EGFR IF NonAfrican Wallisian 84.1 mL/min >60 [place] Comment on above: KDIGO guidelines pro vide the following GFR categories: Stage GFR(ml/min/1.73 m2) Terms G1 >=90 Normal or high G2 60-89 Mildly decreased* G3a 45-59 Mildly to moderately decreased G3b 30-44 Moderately to severely decreased G4 15-29 Severely decreased G5 <15 Kidney failure *Relative to young adult level. In the absence of evidence of kidney damage, neither GFR category G1 nor G2 fulfill the criteria for CKD. The CKD-EPI equation is validated in individuals 18 years of age and older. Currently the best equation for estimating glomerular filtration rate (GFR) from serum creatinine in children is the Bedside Vasquez equation. It is less accurate in patients with extremes of muscle mass, restriction of dietary protein, ingestion of creatine, extra-renal metabolism of creatinine, or treatment with medications that affect renal tubular creatinine secretion. GFR/1.73 sq M predicted among blacks MDRD (S/P/Bld) [Vol rate/Area] mL/min/{1.73_m2} >60 mL/min [place], [place] Glucose [Mass/Vol] 96 mg/dL 70 - 100 mg/dL [place], [place] Interpretation and review of laboratory results Abnormal [place], [place] Potassium [Moles/Vol] 4.3 mmol/L 3.5 - 5.1 mmol/L [place] Sodium [Moles/Vol] 140 mmol/L 135 - 145 mmol/L [place] Urea nitrogen [Mass/Vol] 22 mg/dL High 7 - 20 mg/dL [place] Test Performed by [id number] [place] [address] Hemoglobin AND Hematocriton 02-16-2020 Hematocrit (Bld) [Volume fraction] 41.6 % Normal 40.0-52.0 [facility] Comment on above: Performed By: #### H CT, BMP3M #### [place] [address] [place] [address] Hemoglobin (Bld) [Mass/Vol] 13.7 g/dL Normal 13.0-18.0 [facility] Comment on above: Performed By: #### H CT, BMP3M #### [place] [address] [place] [address] Hemoglobin and Hematocrit, B loodon 02-16-2020 Hematocrit (Bld) [Volume fraction] 41.6 % 40 - 52 % [place], [place] Hemoglobin (Bld) [Mass/Vol] 13.7 g/dL 13 - 18 g/dL [place] Test Performed by [id number] [place] [address] MRSA by PCRon 02-16-2020 Interpretation and review of laboratory results Abnormal [place], [place] Staph Aureus Sc Methicillin-sensitiv e S. aureus (MSSA) present. No MRSA detected. Negative nasal MRSA PCR has a high negative predictive value for MRSA pneumonia. Consider stopping vancomycin if no other clinical indication. Positive results do not necessarily indicate active infection with MSSA. Contact Antimicrobial Stewardship for further recommendations. The analytical performance characteristics of this assay have been determined by [employer] in accordance with CLIA regulations. The modifications have not been cleared or approved by the U. S. Food and Drug Administration; however, the FDA has determined that such clearance or approval is not necessary. Abnormal [employer] Test Performed by [facility], [address] [place] [id number] [facility] [employer] [place] Metabolic Panelon 02-16-2020 Sodium [Moles/Vol] [facility]/ CT Scan Skull Base to Midthighon 02-16-2020 PT w/ CT Scan Skull Base to Midthigh Patient Name: OSWALDO CORLEY PET ACCESSION EXAM DATE/TIME PROCEDURE ORDERING PROVIDER [id number] 02/16/2020 15:24 EST PT w/ CT Scan Skull Base HERRMANN, OLIVERIO to Midthigh CPT code 95904 A9552 Reason For Exam (PT w/ CT Scan Skull Base to Midthigh) staging Report PET/CT CLINICAL INDICATION: SPN, history of prostate cancer Following the intravenous administration of 11.8 mCi of fluorine-18 fluorodeoxyglucose (FDG) a PET scan of the torso was acquired after an approximately one hour delay. Blood glucose level at the time of injection was 115 mg/dl. Contemporaneously, noncontrast axial CT images were obtained using low dose technique. The images were reconstructed in three orthogonal planes and digitally coregistered. The CT data was used for attenuation correction as well. COMPARISON: None at this institution NECK AND CHEST: There is intense (maximal SUV 12) FDG accumulation within a small noncalcified nodule within the periphery of the left lower lobe which measures 1.2 x 1.0 cm in greatest axial diameter on the low-dose CT images (axial image 216 of 351) the intensity of uptake is consistent with malignancy. There is a small to moderate sized loculated effusion along the lateral aspect of the left hemithorax. Moderate emphysematous changes are noted within the lungs. No FDG avid lymphadenopathy is identified within the neck or chest. 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 ABDOMEN AND PELVIS: There is moderately intense (maximal SUV 7.3) FDG accumulation along the posterior, peripheral margin of the prostate. No additional areas of abnormal FDG accumulation are identified within the abdomen or pelvis. There is mild aneurysmal dilatation of the infrarenal abdominal aorta which measures up to 3.4 x 3.0 cm in greatest axial diameter. MUSCULOSKELETAL: Unremarkable. No evidence of osseous metastatic disease. IMPRESSION: PET Report 1.2 cm spiculated nodule within the periphery of the left lower lobe demonstrates intense FDG uptake, consistent with malignancy. Small to moderate-sized loculated pleural effusion along the lateral aspect of the left hemithorax. Moderately intense, focal FDG accumulation along the posterior periphery of the prostate. The intensity of uptake is suspicious for malignancy. 3.4 cm infrarenal abdominal aortic aneurysm. Report Dictated on Final Dictated: 02/17/2020 8:45 am Dictating Physician: MD BORREGO JONATHAN R Signed Date and Time: 02/17/2020 8:49 am Signed by: MD BORREGO JONATHAN R Transcribed Date and Time: 02/17/2020 8:45 Normal [facility] Staph Aureus Complete Nasalo n 02-16-2020 Staph Aureus Complete Nasal Staph Screen --> Status: F Methicillin-sensitive S. aureus (MSSA) present. No MRSA detected. Negative nasal MRSA PCR has a high negative predictive value for MRSA pneumonia. Consider stopping vancomycin if no other clinical indication. Positive results do not necessarily indicate active infection with MSSA. Contact Antimicrobial Stewardship for further recommendations. The analytical performance characteristics of this assay have been determined by [employer] in accordance with CLIA regulations. The modifications have not been cleared or approved by the U. S. Food and Drug Administration; however, the FDA has determined that such clearance or approval is not necessary. No MRSA detected. Negative nasal MRSA PCR has a high negative predictive value for MRSA pneumonia. Consider stopping vancomycin if no other clinical indication. Positive results do not necessarily indicate active infection with MSSA. Contact Antimicrobial Stewardship for further recommendations. The analytical performance characteristics of this assay have been determined by [employer] in accordance with CLIA regulations. The modifications have not been cleared or approved by the U. S. Food and Drug Administration; however, the FDA has determined that such clearance or approval is not necessary. Abnormal [facility] Comment on above: Performed By: #### S APCR ####[employer] [address] [place] [address] TS GELon 02-16-2020 TS GEL ABO Group: O Rh, Gel: NEG Antibody Screen Gel: NEG Normal [facility] Comment on above: Performed By: #### T SGL ####[facility] TYPE AND SCREENon 02-16-2020 Sodium [Moles/Vol] O [place], [place] Test Performed by [facility], [address] [place] [address] [place], [place] No Panel Information SARS-CoV-2 & FLU Antigen (Rapid) [facility] Work Phone: Vital Signs Date Time Vital Sign Value Performing Clinician Facility 08-24-2024 14:21-0400 Body mass index (BMI) [Ratio] 22.4 kg/m2 Dr. Mei Cummins MD Work Phone: 9(494)[phone] [place] [address] 08-24-2024 14:21-0400 Body temperature 96.8 [degF] Dr. Mei Cummins MD Work Phone: 6(486)966-192452 [place] [address] 08-24-2024 14:21-0400 Diastolic blood pressure 53 mm[Hg] Dr. Mei Cummins MD Work Phone: 4(746)005-838152 [place] [address] 08-24-2024 14:21-0400 Heart rate 71 /min Dr. Mei Cummins MD Work Phone: 6(925)500-742052 [place] [address] 08-24-2024 14:21-0400 Inhaled oxygen concentration 95 % Dr. Mei Cummins MD Work Phone: 1(066)738-468752 [place] [address] 08-24-2024 14:21-0400 Inhaled oxygen flow rate 4 L/min Dr. Mei Cummins MD Work Phone: 9(253)906-952852 [place] [address] 08-24-2024 14:21-0400 Respiratory rate 20 /min Dr. Mei Cummins MD Work Phone: 4(843)327-774652 [place] [address] 08-24-2024 14:21-0400 Systolic blood pressure 123 mm[Hg] Dr. Mei Cummins MD Work Phone: [facility] 08-17-2024 14:00-0400 SaO2% (BldA) [Mass fraction] 93 % Dr. Mei Cummins MD Work Phone: [facility] 08-01-2024 12:58-0400 Body mass index (BMI) [Ratio] 23.15 kg/m2 Bela Manzano MD Work Phone: [facility] 08-01-2024 12:58-0400 Body weight 75.3 kg Bela Manzano MD Work Phone: [facility] 08-01-2024 12:58-0400 Diastolic blood pressure 61 mm[Hg] Bela Manzano MD Work Phone: [facility] 08-01-2024 12:58-0400 Heart rate 66 /min Bela Manzano MD Work Phone: [facility] 08-01-2024 12:58-0400 Respiratory rate 17 /min Bela Manzano MD Work Phone: [facility] 08-01-2024 12:58-0400 SaO2% (BldA) [Mass fraction] 93 % Bela Manzano MD Work Phone: [facility] 08-01-2024 12:58-0400 Systolic blood pressure 98 mm[Hg] Bela Manzano MD Work Phone: [facility] 07-31-2024 00:35-0400 Body weight 74.[address] Mei Cummins MD Work Phone: [facility] 07-27-2024 10:58-0400 Body mass index (BMI) [Ratio] 22.4 kg/m2 Dr. Mei Cummins MD Work Phone: [facility] 07-27-2024 10:58-0400 Body temperature 97.1 [degF] Dr. Mei Cummins MD Work Phone: [facility] 07-27-2024 10:58-0400 Diastolic blood pressure 60 mm[Hg] Dr. Mei Cummins MD Work Phone: [facility] 07-27-2024 10:58-0400 Heart rate 91 /min Dr. Mei Cummins MD Work Phone: 8(133)542-448844 [place] [address] 07-27-2024 10:58-0400 Respiratory rate 16 /min Dr. Mei Cummins MD Work Phone: 8(915)858-761044 [place] [address] 07-27-2024 10:58-0400 Systolic blood pressure 122 mm[Hg] Dr. Mei Cummins MD Work Phone: 3(559)[phone] [place] [address] 07-13-2024 14:06-0400 Body mass index (BMI) [Ratio] 22.4 kg/m2 Dr. Mei Cummins MD Work Phone: 5(364)360-321644 [place] [address] 07-13-2024 14:06-0400 Body temperature 96.9 [degF] Dr. Mei Cummins MD Work Phone: 8(160)[phone] [place] [address] 07-13-2024 14:06-0400 Diastolic blood pressure 65 mm[Hg] Dr. Mei Cumimns MD Work Phone: 8(368)661-331144 [place] [address] 07-13-2024 14:06-0400 Heart rate 75 /min Dr. Mei Cummins MD Work Phone: 0(123)475-785844 [place] [address] 07-13-2024 14:06-0400 Respiratory rate 18 /min Dr. Mei Cummins MD Work Phone: 2(942)[phone] [address] [place], [place] [address] 07-13-2024 14:06-0400 Systolic blood pressure 98 mm[Hg] Dr. Mei Cummins MD Work Phone: 0(747)153-976444 [place] [address] 07-06-2024 14:11-0400 Body mass index (BMI) [Ratio] 22.4 kg/m2 Dr. Mei Cummins MD Work Phone: 4(737)014-807044 [place] [address] 07-06-2024 14:11-0400 Body temperature 97 [degF] Dr. Mei Cummins MD Work Phone: 6(747)110-044244 [place] [address] 07-06-2024 14:11-0400 Diastolic blood pressure 49 mm[Hg] Dr. Mei Cummins MD Work Phone: 6(417)313-099944 [place] [address] 07-06-2024 14:11-0400 Heart rate 72 /min Dr. Mei Cummins MD Work Phone: [facility] 07-06-2024 14:11-0400 Inhaled oxygen flow rate 4 L/min Dr. Mei Cummins MD Work Phone: [facility] 07-06-2024 14:11-0400 Respiratory rate 22 /min Dr. Mei Cummins MD Work Phone: [facility] 07-06-2024 14:11-0400 SaO2% (BldA) [Mass fraction] 93 % Dr. Mei Cummins MD Work Phone: [facility] 07-06-2024 14:11-0400 Systolic blood pressure 104 mm[Hg] Dr. Mei Cummins MD Work Phone: [facility] 07-01-2024 15:09-0400 Body temperature 97.2 [degF] Treatment Wstr Work Phone: [facility] 07-01-2024 15:09-0400 Diastolic blood pressure 62 mm[Hg] Treatment Wstr Work Phone: [facility] 07-01-2024 15:09-0400 Heart rate 73 /min Treatment Wstr Work Phone: [facility] 07-01-2024 15:09-0400 Respiratory rate 20 /min Treatment Wstr Work Phone: [facility] 07-01-2024 15:09-0400 SaO2% (BldA) [Mass fraction] 95 % Treatment Wstr Work Phone: [facility] 07-01-2024 15:09-0400 Systolic blood pressure 114 mm[Hg] Treatment Wstr Work Phone: [facility] 07-01-2024 13:51-0400 Body mass index (BMI) [Ratio] 23.58 kg/m2 Mei Cummins MD Work Phone: [facility] 07-01-2024 13:51-0400 Body weight 76.7 kg Mei Cummins MD Work Phone: [facility] 07-01-2024 13:51-0400 Diastolic blood pressure 60 mm[Hg] Mei Cummins MD Work Phone: [facility] 07-01-2024 13:51-0400 Heart rate 72 /min Mei Cummins MD Work Phone: [facility] 07-01-2024 13:51-0400 Respiratory rate 20 /min Mei Cummins MD Work Phone: [facility] 07-01-2024 13:51-0400 SaO2% (BldA) [Mass fraction] 97 % Mei Cummins MD Work Phone: [facility] 07-01-2024 13:51-0400 Systolic blood pressure 102 mm[Hg] Mei Cummins MD Work Phone: [facility] 06-30-2024 00:29-0400 Body weight 74.[address] Mei Cummins MD Work Phone: [facility] 06-29-2024 15:27-0400 Body mass index (BMI) [Ratio] 23.01 kg/m2 Treatment Wstr Work Phone: [facility] 06-29-2024 15:27-0400 Body temperature 97.39 [degF] Treatment Wstr Work Phone: [facility] 06-29-2024 15:27-0400 Body weight 74.84 kg Treatment Wstr Work Phone: [facility] 06-29-2024 15:27-0400 Diastolic blood pressure 66 mm[Hg] Treatment Wstr Work Phone: [facility] 06-29-2024 15:27-0400 Heart rate 95 /min Treatment Wstr Work Phone: [facility] 06-29-2024 15:27-0400 Respiratory rate 22 /min Treatment Wstr Work Phone: [facility] 06-29-2024 15:27-0400 SaO2% (BldA) [Mass fraction] 95 % Treatment Wstr Work Phone: [facility] 06-29-2024 15:27-0400 Systolic blood pressure 109 mm[Hg] Treatment Wstr Work Phone: [facility] 06-27-2024 14:00-0400 Body temperature 97.5 [degF] Treatment Wstr Work Phone: [facility] 06-27-2024 14:00-0400 Diastolic blood pressure 67 mm[Hg] Treatment Wstr Work Phone: [facility] 06-27-2024 14:00-0400 Heart rate 90 /min Treatment Wstr Work Phone: [facility] 06-27-2024 14:00-0400 Systolic blood pressure 107 mm[Hg] Treatment Wstr Work Phone: [facility] 06-22-2024 13:16-0400 Body mass index (BMI) [Ratio] 22.4 kg/m2 Dr. Mei Cummins MD Work Phone: [facility] 06-22-2024 13:16-0400 Body temperature 96.8 [degF] Dr. Mei Cummins MD Work Phone: [facility] 06-22-2024 13:16-0400 Diastolic blood pressure 51 mm[Hg] Dr. Mei Cummins MD Work Phone: [facility] 06-22-2024 13:16-0400 Heart rate 84 /min Dr. Mei Cummins MD Work Phone: [facility] 06-22-2024 13:16-0400 Respiratory rate 20 /min Dr. Mei Cummins MD Work Phone: [facility] 06-22-2024 13:16-0400 Systolic blood pressure 136 mm[Hg] Dr. Mei Cummins MD Work Phone: [facility] 06-21-2024 13:00-0400 Body temperature 97.59 [degF] Treatment Wstr Work Phone: [facility] 04-22-2025 13:00-0400 Diastolic blood pressure 64 mm[Hg] Treatment Wstr Work Phone: [facility] 06-21-2024 13:00-0400 Heart rate 72 /min Treatment Wstr Work Phone: [facility] 06-21-2024 13:00-0400 Systolic blood pressure 104 mm[Hg] Treatment Wstr Work Phone: [facility] 06-15-2024 11:37-0400 Body mass index (BMI) [Ratio] 22.4 kg/m2 Dr. Tristan Salter DO Work Phone: [facility] 06-15-2024 11:37-0400 Body temperature 97.3 [degF] Dr. Tristan Salter DO Work Phone: 2(008)475-614417 [place] [address] 06-15-2024 11:37-0400 Diastolic blood pressure 47 mm[Hg] Dr. Tristan Salter DO Work Phone: 5(821)490-873517 [place] [address] 06-15-2024 11:37-0400 Heart rate 82 /min Dr. Tristan Salter DO Work Phone: 9(813)681-749317 [place] [address] 06-15-2024 11:37-0400 Inhaled oxygen flow rate 4 L/min Dr. Tristan Salter DO Work Phone: [facility] 06-15-2024 11:37-0400 Respiratory rate 20 /min Dr. Tristan Salter DO Work Phone: 9(423)792-602717 [place] [address] 06-15-2024 11:37-0400 Systolic blood pressure 127 mm[Hg] Dr. Tristan Salter DO Work Phone: [facility] 06-08-2024 10:43-0400 Body mass index (BMI) [Ratio] 22.4 kg/m2 Dr. Tristan Salter DO Work Phone: [facility] 06-08-2024 10:43-0400 Body temperature 97.1 [degF] Dr. Tristan Salter DO Work Phone: [facility] 06-08-2024 10:43-0400 Diastolic blood pressure 58 mm[Hg] Dr. Tristan Salter DO Work Phone: [facility] 06-08-2024 10:43-0400 Heart rate 86 /min Dr. Tristan Salter DO Work Phone: [facility] 06-08-2024 10:43-0400 Inhaled oxygen flow rate 4 L/min Dr. Tristan Salter DO Work Phone: [facility] 06-08-2024 10:43-0400 Respiratory rate 20 /min Dr. Tristan Salter DO Work Phone: [facility] 06-08-2024 10:43-0400 Systolic blood pressure 106 mm[Hg] Dr. Tristan Salter DO Work Phone: [facility] 06-05-2024 12:58-0400 Body temperature 97.5 [degF] Dr. Mei Cummins MD Work Phone: 9(686)163-265044 [place] [address] 06-05-2024 12:58-0400 Diastolic blood pressure 52 mm[Hg] Dr. Mei Cummins MD Work Phone: 3(874)585-138444 [place] [address] 06-05-2024 12:58-0400 Heart rate 61 /min Dr. Mei Cummins MD Work Phone: 3(477)936-345152 [place] [address] 06-05-2024 12:58-0400 Inhaled oxygen flow rate 3 L/min Dr. Mei Cummins MD Work Phone: [facility] 06-05-2024 12:58-0400 Respiratory rate 20 /min Dr. Mei Cummins MD Work Phone: [facility] 06-05-2024 12:58-0400 SaO2% (BldA) [Mass fraction] 98 % Dr. Mei Cummins MD Work Phone: [facility] 06-05-2024 12:58-0400 Systolic blood pressure 102 mm[Hg] Dr. Mei Cummins MD Work Phone: 5(001)406-038052 [place] [address] 06-04-2024 10:33-0400 Body height 180.[address] Mei Cummins MD Work Phone: 7(302)763-333444 [place] [address] 06-04-2024 10:33-0400 Body weight [address] Mei Cummins MD Work Phone: 7(872)252-838544 [place] [address] 06-03-2024 19:15-0400 Body mass index (BMI) [Ratio] 23.1 kg/m2 Dr. Mei Cummins MD Work Phone: 6(071)471-287544 [place] [address] 06-03-2024 18:02-0400 Diastolic blood pressure 63 mm[Hg] Dr. Mei Cummins MD Work Phone: 5(459)539-250744 [place] [address] 06-03-2024 18:02-0400 Heart rate 91 /min Dr. Mei Cummins MD Work Phone: 6(339)711-110544 [place] [address] 06-03-2024 18:02-0400 Respiratory rate 14 /min Dr. Mei Cummins MD Work Phone: 8(706)764-500644 [place] [address] 06-03-2024 18:02-0400 SaO2% (BldA) [Mass fraction] 100 % Dr. Mei Cummins MD Work Phone: 6(400)413-660144 [place] [address] 06-03-2024 18:02-0400 Systolic blood pressure 92 mm[Hg] Dr. Mei Cummins MD Work Phone: 8(449)033-798744 [place] [address] 06-03-2024 17:00-0400 Body temperature 98.4 [degF] Dr. Mei Cummins MD Work Phone: 3(686)475-595544 [place] [address] 06-03-2024 15:00-0400 Body height 182.[address] Mei Cummins MD Work Phone: 4(993)580-959044 [place] [address] 06-03-2024 15:00-0400 Body mass index (BMI) [Ratio] 22.4 kg/m2 Dr. Mei Cummins MD Work Phone: 7(530)030-025944 [place] [address] 06-03-2024 15:00-0400 Body weight 75.[address] Mei Cummins MD Work Phone: 1(926)214-003344 [place] [address] 06-01-2024 13:37-0400 Diastolic blood pressure 58 mm[Hg] Kailash Click IMPROVEMENT COORDINATOR.LEGAL STENOGRAPHER Work Phone: [facility] 06-01-2024 13:37-0400 Heart rate 76 /min Kailash Click IMPROVEMENT COORDINATOR.LEGAL STENOGRAPHER Work Phone: [facility] 06-01-2024 13:37-0400 Respiratory rate 22 /min Kailash Click IMPROVEMENT COORDINATOR.LEGAL STENOGRAPHER Work Phone: [facility] 06-01-2024 13:37-0400 SaO2% (BldA) [Mass fraction] 96 % Kailash Click IMPROVEMENT COORDINATOR.LEGAL STENOGRAPHER Work Phone: [facility] 06-01-2024 13:37-0400 Systolic blood pressure 112 mm[Hg] Kailash Click IMPROVEMENT COORDINATOR.LEGAL STENOGRAPHER Work Phone: [facility] 06-01-2024 11:49-0400 Body mass index (BMI) [Ratio] 22.4 kg/m2 Dr. Mei Cummins MD Work Phone: [facility] 06-01-2024 11:49-0400 Body temperature 96.8 [degF] Dr. Mei Cummins MD Work Phone: [facility] 06-01-2024 11:49-0400 Diastolic blood pressure 65 mm[Hg] Dr. Mei Cummins MD Work Phone: [facility] 06-01-2024 11:49-0400 Heart rate 73 /min Dr. Mei Cummins MD Work Phone: [facility] 06-01-2024 11:49-0400 Respiratory rate 18 /min Dr. Mei Cummins MD Work Phone: [facility] 06-01-2024 11:49-0400 Systolic blood pressure 132 mm[Hg] Dr. Mei Cummins MD Work Phone: [facility] 05-31-2024 00:22-0400 Body weight 74.[address] Mei Cummins MD Work Phone: [facility] 05-31-2024 00:22-0400 Inhaled oxygen flow rate 5 L/min Dr. Mei Cummins MD Work Phone: 6(833)966-633444 [place] [address] 05-31-2024 00:22-0400 SaO2% (BldA) [Mass fraction] 95 % Dr. Mei Cummins MD Work Phone: 6(420)825-875344 [place] [address] 05-24-2024 14:00-0400 Body temperature 97.6 [degF] Dr. Mei Cummins MD Work Phone: 9(443)919-842844 [place] [address] 05-24-2024 14:00-0400 Diastolic blood pressure 59 mm[Hg] Dr. Mei Cummins MD Work Phone: 4(263)537-976144 [place] [address] 05-24-2024 14:00-0400 Heart rate 73 /min Dr. Mei Cummins MD Work Phone: 7(338)032-693244 [place] [address] 05-24-2024 14:00-0400 Inhaled oxygen flow rate 2 L/min Dr. Mei Cummins MD Work Phone: 5(070)401-140444 [place] [address] 05-24-2024 14:00-0400 Respiratory rate 18 /min Dr. Mei Cummins MD Work Phone: 2(398)510-196944 [place] [address] 05-24-2024 14:00-0400 SaO2% (BldA) [Mass fraction] 100 % Dr. Mei Cummins MD Work Phone: 5(423)154-792644 [place] [address] 05-24-2024 14:00-0400 Systolic blood pressure 124 mm[Hg] Dr. Mei Cummins MD Work Phone: 0(727)418-587144 [place] [address] 05-23-2024 09:19-0400 Body height 182.[address] Mei Cummins MD Work Phone: 9(737)837-090744 [place] [address] 05-23-2024 09:19-0400 Body weight 76.[address] Mie Cummins MD Work Phone: 5(443)556-370244 [place] [address] 05-22-2024 15:58-0400 Diastolic blood pressure 70 mm[Hg] Dr. Mei Cummins MD Work Phone: 9(295)672-156344 [place] [address] 05-22-2024 15:58-0400 Heart rate 102 /min Dr. Mei Cummins MD Work Phone: 3(370)190-618344 [place] [address] 05-22-2024 15:58-0400 Inhaled oxygen flow rate 4 L/min Dr. Mei Cummins MD Work Phone: 5(169)091-596844 [place] [address] 05-22-2024 15:58-0400 Respiratory rate 21 /min Dr. Mei Cummins MD Work Phone: 1(745)878-726744 [place] [address] 05-22-2024 15:58-0400 SaO2% (BldA) [Mass fraction] 100 % Dr. Mei Cummins MD Work Phone: 4(668)282-582344 [place] [address] 05-22-2024 15:58-0400 Systolic blood pressure 128 mm[Hg] Dr. Mei Cummins MD Work Phone: 0(243)896-361744 [place] [address] 05-22-2024 15:25-0400 Body temperature 98.4 [degF] Dr. Mei Cummins MD Work Phone: 3(820)642-610944 [place] [address] 05-22-2024 12:15-0400 Body mass index (BMI) [Ratio] 22.9 kg/m2 Dr. Mei Cummins MD Work Phone: 1(917)221-158244 [place] [address] 05-22-2024 12:15-0400 Body weight 76.[address] Mei Cummins MD Work Phone: 3(976)875-405544 [place] [address] 05-22-2024 12:03-0400 Body height 182.[address] Mei Cummins MD Work Phone: 2(430)201-284844 [place] [address] 05-11-2024 14:37-0400 Body mass index (BMI) [Ratio] 22.4 kg/m2 Dr. Mei Cummins MD Work Phone: 3(522)375-211044 [place] [address] 05-11-2024 14:37-0400 Body temperature 97 [degF] Dr. Mei Cummins MD Work Phone: 1(652)451-545144 [place] [address] 05-11-2024 14:37-0400 Diastolic blood pressure 52 mm[Hg] Dr. Mei Cummins MD Work Phone: 2(191)290-679552 [place] [address] 05-11-2024 14:37-0400 Heart rate 69 /min Dr. Mei Cummins MD Work Phone: 7(863)984-729144 [place] [address] 05-11-2024 14:37-0400 Inhaled oxygen flow rate 5 L/min Dr. Mei Cummins MD Work Phone: 0(706)759-406744 [place] [address] 05-11-2024 14:37-0400 Respiratory rate 16 /min Dr. Mei Cummins MD Work Phone: 4(127)971-905344 [place] [address] 05-11-2024 14:37-0400 SaO2% (BldA) [Mass fraction] 95 % Dr. Mei Cummins MD Work Phone: 1(975)863-141844 [place] [address] 05-11-2024 14:37-0400 Systolic blood pressure 136 mm[Hg] Dr. Mei Cummins MD Work Phone: 6(623)974-973544 [place] [address] 04-30-2024 01:23-0500 Body weight 74.[address] Mei Cummins MD Work Phone: 4(557)433-879544 [place] [address] 04-27-2024 14:10-0500 Body mass index (BMI) [Ratio] 22.4 kg/m2 Dr. Mei Cummins MD Work Phone: 8(045)435-533344 [place] [address] 04-27-2024 14:10-0500 Body temperature 97 [degF] Dr. Mei Cummins MD Work Phone: 2(330)770-984044 [place] [address] 04-27-2024 14:10-0500 Diastolic blood pressure 48 mm[Hg] Dr. Mei Cummins MD Work Phone: 5(946)974-884044 [place] [address] 04-27-2024 14:10-0500 Heart rate 67 /min Dr. Mei Cummins MD Work Phone: 1(062)171-207844 [place] [address] 04-27-2024 14:10-0500 Respiratory rate 18 /min Dr. Mei Cummins MD Work Phone: 8(068)165-980844 [place] [address] 04-27-2024 14:10-0500 Systolic blood pressure 120 mm[Hg] Dr. Mei Cummins MD Work Phone: [facility] 04-14-2024 14:39-0500 Diastolic blood pressure 84 mm[Hg] Betito Mauro MD Work Phone: [facility] 04-14-2024 14:39-0500 Heart rate 73 /min Betito Mauro MD Work Phone: [facility] 04-14-2024 14:39-0500 SaO2% (BldA) [Mass fraction] 100 % Betito Mauro MD Work Phone: [facility] Comment on above: 4L 04-14-2024 14:39-0500 Systolic blood pressure 145 mm[Hg] Betito Mauro MD Work Phone: [facility] 04-13-2024 14:21-0500 Inhaled oxygen flow rate 5 L/min Dr. Mei Cummins MD Work Phone: [facility] 04-02-2024 02:44-0500 Body weight 74.[address] Mei Cummins MD Work Phone: 7(095)607-398852 [place] [address] 03-30-2024 14:16-0500 Body mass index (BMI) [Ratio] 22.4 kg/m2 Dr. Mei Cummins MD Work Phone: 4(384)475-099552 [place] [address] 03-30-2024 14:16-0500 Body temperature 97.3 [degF] Dr. Mei Cummins MD Work Phone: [facility] 03-30-2024 14:16-0500 Body weight 74.[address] Mei Cummins MD Work Phone: [facility] 03-30-2024 14:16-0500 Diastolic blood pressure 71 mm[Hg] Dr. Mei Cummins MD Work Phone: 9(394)686-024452 [place] [address] 03-30-2024 14:16-0500 Heart rate 78 /min Dr. Mei Cummins MD Work Phone: [facility] 03-30-2024 14:16-0500 Inhaled oxygen flow rate 4 L/min Dr. Mei Cummins MD Work Phone: [facility] 03-30-2024 14:16-0500 Respiratory rate 20 /min Dr. Mei Cummins MD Work Phone: [facility] 03-30-2024 14:16-0500 Systolic blood pressure 141 mm[Hg] Dr. Mei Cummins MD Work Phone: [facility] 03-21-2024 15:08-0500 Body mass index (BMI) [Ratio] 23.71 kg/m2 Salazar Robbinsi DO Work Phone: [facility] 03-21-2024 15:08-0500 Body temperature 97.5 [degF] Salazar Robbinsi DO Work Phone: [facility] 03-21-2024 15:08-0500 Body weight 77.11 kg Salazar Robbinsi DO Work Phone: [facility] Comment on above: Pt stated 03-21-2024 15:08-0500 Diastolic blood pressure 66 mm[Hg] Salazar Itzeli DO Work Phone: [facility] 03-21-2024 15:08-0500 Heart rate 83 /min Salazar Robbinsi DO Work Phone: [facility] 03-21-2024 15:08-0500 SaO2% (BldA) [Mass fraction] 94 % Salazar Itzeli DO Work Phone: [facility] 03-21-2024 15:08-0500 Systolic blood pressure 108 mm[Hg] Salazar Itzeli DO Work Phone: [facility] 03-10-2024 16:08-0500 Diastolic blood pressure 65 mm[Hg] Betito Mauro MD Work Phone: [facility] 03-10-2024 16:08-0500 Heart rate 42 /min Betito Mauro MD Work Phone: [facility] 03-10-2024 16:08-0500 SaO2% (BldA) [Mass fraction] 99 % Betito Mauro MD Work Phone: [facility] Comment on above: 5L 03-10-2024 16:08-0500 Systolic blood pressure 125 mm[Hg] Betito Mauro MD Work Phone: [facility] 02-22-2024 15:32-0500 Heart rate 90 /min Dr. Mei Cummins MD Work Phone: [facility] 02-22-2024 15:32-0500 Respiratory rate 18 /min Dr. Mei Cummins MD Work Phone: 4(929)352-624952 [place] [address] 02-22-2024 14:12-0500 Body temperature 97.6 [degF] Dr. Mei Cummins MD Work Phone: 8(816)136-348952 [place] [address] 02-22-2024 14:12-0500 Diastolic blood pressure 69 mm[Hg] Dr. Mei Cummins MD Work Phone: 4(281)461-692062 [address] 02-22-2024 14:12-0500 Inhaled oxygen flow rate 4 L/min Dr. Mei Cummins MD Work Phone: [facility] 02-22-2024 14:12-0500 SaO2% (BldA) [Mass fraction] 97 % Dr. Mei Cummins MD Work Phone: [facility] 02-22-2024 14:12-0500 Systolic blood pressure 118 mm[Hg] Dr. Mei Cummins MD Work Phone: [facility] 02-22-2024 02:03-0500 Body mass index (BMI) [Ratio] 23.5 kg/m2 Dr. Mei Cummins MD Work Phone: [facility] 02-22-2024 02:03-0500 Body weight 76.[address] Mei Cummins MD Work Phone: [facility] 02-05-2024 11:26-0500 Diastolic blood pressure 79 mm[Hg] Betito Mauro MD Work Phone: [facility] 02-05-2024 11:26-0500 Heart rate 72 /min Betito Mauro MD Work Phone: [facility] 02-05-2024 11:26-0500 SaO2% (BldA) [Mass fraction] 96 % Betito Mauro MD Work Phone: [facility] Comment on above: 5L 02-05-2024 11:26-0500 Systolic blood pressure 144 mm[Hg] Betito Mauro MD Work Phone: [facility] 01-19-2024 13:11-0500 Diastolic blood pressure 58 mm[Hg] Kailash Click IMPROVEMENT COORDINATOR.LEGAL STENOGRAPHER Work Phone: [facility] 01-19-2024 13:11-0500 Heart rate 64 /min Kailash Click IMPROVEMENT COORDINATOR.LEGAL STENOGRAPHER Work Phone: [facility] 01-19-2024 13:11-0500 Respiratory rate 20 /min Kailash Click IMPROVEMENT COORDINATOR.LEGAL STENOGRAPHER Work Phone: [facility] 01-19-2024 13:11-0500 SaO2% (BldA) [Mass fraction] 96 % Kailash Click IMPROVEMENT COORDINATOR.LEGAL STENOGRAPHER Work Phone: [facility] Comment on above: 4L 01-19-2024 13:11-0500 Systolic blood pressure 136 mm[Hg] Kailash Click IMPROVEMENT COORDINATOR.LEGAL STENOGRAPHER Work Phone: [facility] 12-23-2023 13:36-0400 Diastolic blood pressure 56 mm[Hg] Twila Tannhof IMPROVEMENT COORDINATOR.LEGAL STENOGRAPHER Work Phone: [facility] 12-23-2023 13:36-0400 Heart rate 81 /min Twila Tannhof IMPROVEMENT COORDINATOR.LEGAL STENOGRAPHER Work Phone: [facility] 12-23-2023 13:36-0400 Respiratory rate 22 /min Twila Tannhof IMPROVEMENT COORDINATOR.LEGAL STENOGRAPHER Work Phone: [facility] 12-23-2023 13:36-0400 SaO2% (BldA) [Mass fraction] 94 % Twila Tannhof IMPROVEMENT COORDINATOR.LEGAL STENOGRAPHER Work Phone: [facility] 12-23-2023 13:36-0400 Systolic blood pressure 116 mm[Hg] Twila Tannhof IMPROVEMENT COORDINATOR.LEGAL STENOGRAPHER Work Phone: [facility] 12-21-2023 13:04-0400 Body mass index (BMI) [Ratio] 24.83 kg/m2 Bela Manzano MD Work Phone: [facility] 12-21-2023 13:04-0400 Body weight 80.74 kg Bela Manzano MD Work Phone: [facility] Comment on above: Pt unable to weight, gave verbal weight 12-21-2023 13:04-0400 Diastolic blood pressure 59 mm[Hg] Bela Manzano MD Work Phone: [facility] 12-21-2023 13:04-0400 Heart rate 76 /min Bela Manzano MD Work Phone: [facility] 12-21-2023 13:04-0400 Respiratory rate 20 /min Bela Manzano MD Work Phone: [facility] 12-21-2023 13:04-0400 SaO2% (BldA) [Mass fraction] 95 % Bela Manzano MD Work Phone: [facility] 12-21-2023 13:04-0400 Systolic blood pressure 107 mm[Hg] Bela Manzano MD Work Phone: [facility] 12-08-2023 13:28-0400 Body mass index (BMI) [Ratio] 24.55 kg/m2 Kailash Click IMPROVEMENT COORDINATOR.LEGAL STENOGRAPHER Work Phone: [facility] 12-08-2023 13:28-0400 Body temperature 97.81 [degF] Kailash Click IMPROVEMENT COORDINATOR.LEGAL STENOGRAPHER Work Phone: [facility] 12-08-2023 13:28-0400 Body weight 79.83 kg Kailash Click IMPROVEMENT COORDINATOR.LEGAL STENOGRAPHER Work Phone: [facility] 12-08-2023 13:28-0400 Diastolic blood pressure 71 mm[Hg] Kailash Click IMPROVEMENT COORDINATOR.LEGAL STENOGRAPHER Work Phone: [facility] 12-08-2023 13:28-0400 Heart rate 66 /min Kailash Click IMPROVEMENT COORDINATOR.LEGAL STENOGRAPHER Work Phone: [facility] 12-08-2023 13:28-0400 SaO2% (BldA) [Mass fraction] 95 % Kailash Click IMPROVEMENT COORDINATOR.LEGAL STENOGRAPHER Work Phone: [facility] 12-08-2023 13:28-0400 Systolic blood pressure 127 mm[Hg] Kailash Click IMPROVEMENT COORDINATOR.LEGAL STENOGRAPHER Work Phone: [facility] 11-19-2023 15:40-0400 Body mass index (BMI) [Ratio] 22.59 kg/m2 Andrés Moomaw IMPROVEMENT COORDINATOR.LEGAL STENOGRAPHER Work Phone: [facility] 11-19-2023 15:40-0400 Body temperature 97.11 [degF] Andrés Moomaw IMPROVEMENT COORDINATOR.LEGAL STENOGRAPHER Work Phone: [facility] 11-19-2023 15:40-0400 Body weight 73.48 kg Andrés Moomaw IMPROVEMENT COORDINATOR.LEGAL STENOGRAPHER Work Phone: [facility] 11-19-2023 15:40-0400 Diastolic blood pressure 76 mm[Hg] Andrés Moomaw IMPROVEMENT COORDINATOR.LEGAL STENOGRAPHER Work Phone: [facility] 11-19-2023 15:40-0400 Heart rate 72 /min Andrés Moomaw IMPROVEMENT COORDINATOR.LEGAL STENOGRAPHER Work Phone: [facility] 11-19-2023 15:40-0400 Respiratory rate 24 /min Andrés Moomaw IMPROVEMENT COORDINATOR.LEGAL STENOGRAPHER Work Phone: [facility] 11-19-2023 15:40-0400 SaO2% (BldA) [Mass fraction] 96 % Andrés Moomaw IMPROVEMENT COORDINATOR.LEGAL STENOGRAPHER Work Phone: [facility] Comment on above: 5 L/min 11-19-2023 15:40-0400 Systolic blood pressure 122 mm[Hg] Andrés Moomaw IMPROVEMENT COORDINATOR.LEGAL STENOGRAPHER Work Phone: [facility] 10-29-2023 13:56-0400 Body mass index (BMI) [Ratio] 22.59 kg/m2 Mei Cummins MD Work Phone: [facility] 08-29-2024 13:56-0400 Body weight 73.48 kg Mei Cummins MD Work Phone: [facility] 10-29-2023 13:56-0400 Diastolic blood pressure 70 mm[Hg] Mei Cummins MD Work Phone: [facility] 10-29-2023 13:56-0400 Heart rate 84 /min Mei Cummins MD Work Phone: [facility] 10-29-2023 13:56-0400 Respiratory rate 20 /min Mei Cummins MD Work Phone: [facility] 10-29-2023 13:56-0400 SaO2% (BldA) [Mass fraction] 97 % Mei Cummins MD Work Phone: [facility] 10-29-2023 13:56-0400 Systolic blood pressure 117 mm[Hg] Mei Cummins MD Work Phone: [facility] 09-21-2023 13:29-0400 Body mass index (BMI) [Ratio] 25.36 kg/m2 Mei Cummins MD Work Phone: [facility] 09-21-2023 13:29-0400 Body weight 82.46 kg Mei Cummins MD Work Phone: [facility] 09-21-2023 13:29-0400 Diastolic blood pressure 72 mm[Hg] Mei Cummins MD Work Phone: [facility] 09-21-2023 13:29-0400 Heart rate 66 /min Mei Cummins MD Work Phone: [facility] 09-21-2023 13:29-0400 Respiratory rate 20 /min Mei Cummins MD Work Phone: [facility] 09-21-2023 13:29-0400 SaO2% (BldA) [Mass fraction] 100 % Mei Cummins MD Work Phone: [facility] 09-21-2023 13:29-0400 Systolic blood pressure 128 mm[Hg] Mei Cummins MD Work Phone: [facility] 09-16-2023 13:58-0400 Diastolic blood pressure 72 mm[Hg] Rosalie Saul PA-C Work Phone: [facility] 09-16-2023 13:58-0400 Heart rate 74 /min Rosalie Saul PA-C Work Phone: [facility] 09-16-2023 13:58-0400 SaO2% (BldA) [Mass fraction] 98 % Rosalie Saul PA-C Work Phone: [facility] Comment on above: at 4 Liters O2 Pulse 09-16-2023 13:58-0400 Systolic blood pressure 132 mm[Hg] Rosalie Saul PA-C Work Phone: [facility] 08-18-2023 09:59-0400 Diastolic blood pressure 78 mm[Hg] Tyrell Vigil DO Work Phone: [facility] 08-18-2023 09:59-0400 Heart rate 79 /min Tyrell Vigil DO Work Phone: [facility] 08-18-2023 09:59-0400 SaO2% (BldA) [Mass fraction] 97 % Tyrell Vigil DO Work Phone: [facility] Comment on above: 4L 08-18-2023 09:59-0400 Systolic blood pressure 148 mm[Hg] Tyrell Vigil DO Work Phone: [facility] 06-22-2023 13:08-0400 Body mass index (BMI) [Ratio] 25.38 kg/m2 Mei Cummins MD Work Phone: [facility] 06-22-2023 13:08-0400 Body weight 82.56 kg Mei Cummins MD Work Phone: [facility] 06-22-2023 13:08-0400 Diastolic blood pressure 68 mm[Hg] Mei Cummins MD Work Phone: [facility] 06-22-2023 13:08-0400 Heart rate 76 /min Mei Cummins MD Work Phone: [facility] 06-22-2023 13:08-0400 Respiratory rate 20 /min Mei Cummins MD Work Phone: [facility] 06-22-2023 13:08-0400 SaO2% (BldA) [Mass fraction] 100 % Mei Cummins MD Work Phone: [facility] 06-22-2023 13:08-0400 Systolic blood pressure 100 mm[Hg] Mei Cummins MD Work Phone: [facility] 06-08-2023 11:20-0400 Body weight 80.74 kg Bela Manzano MD Work Phone: [facility] 06-08-2023 11:20-0400 Diastolic blood pressure 82 mm[Hg] Bela Manzano MD Work Phone: [facility] 06-08-2023 11:20-0400 Heart rate 86 /min Bela Manzano MD Work Phone: [facility] 06-08-2023 11:20-0400 SaO2% (BldA) [Mass fraction] 98 % Bela Manzano MD Work Phone: [facility] 06-08-2023 11:20-0400 Systolic blood pressure 135 mm[Hg] Bela Manzano MD Work Phone: [facility] 05-28-2023 17:21-0400 Body temperature 98 [degF] Dr. Mei Cummins Work Phone: [facility] 05-28-2023 17:21-0400 Diastolic blood pressure 81 mm[Hg] Dr. Mei Cummins Work Phone: [facility] 05-28-2023 17:21-0400 Heart rate 79 /min Dr. Mei Cummins Work Phone: [facility] 05-28-2023 17:21-0400 Respiratory rate 16 /min Dr. Mei Cummins Work Phone: [facility] 05-28-2023 17:21-0400 SaO2% (BldA) [Mass fraction] 99 % Dr. Mei Cummins Work Phone: [facility] 05-28-2023 17:21-0400 Systolic blood pressure 138 mm[Hg] Dr. Mei Cummins Work Phone: [facility] 05-28-2023 16:00-0400 Inhaled oxygen flow rate 3 L/min Dr. Mei Cummins Work Phone: [facility] 05-28-2023 12:51-0400 Body height 180.[address] Mei Cummins Work Phone: [facility] 05-28-2023 12:51-0400 Body mass index (BMI) [Ratio] 24.8 kg/m2 Dr. Mei Cummins Work Phone: [facility] 05-28-2023 12:51-0400 Body weight 80.[address] Mei Cummins Work Phone: [facility] 05-18-2023 15:54-0400 Body temperature 97.2 [degF] Salazar Masci DO Work Phone: [facility] 05-18-2023 15:54-0400 Body weight 80.74 kg Salazar Masci DO Work Phone: [facility] 05-18-2023 15:54-0400 Diastolic blood pressure 88 mm[Hg] Salazar Masci DO Work Phone: [facility] 05-18-2023 15:54-0400 Heart rate 84 /min Salazar Masci DO Work Phone: [facility] 05-18-2023 15:54-0400 SaO2% (BldA) [Mass fraction] 96 % Salazar Masci DO Work Phone: [facility] 05-18-2023 15:54-0400 Systolic blood pressure 156 mm[Hg] Salazar Masci DO Work Phone: [facility] 05-12-2023 14:02-0400 Body height 180.3 cm Rosalie Martinez PA-C Work Phone: [facility] 05-12-2023 14:02-0400 Body temperature 98.01 [degF] Rosalie Saul PA-C Work Phone: [facility] 05-12-2023 14:02-0400 Body weight 82.56 kg Rosalie Saul PA-C Work Phone: [facility] 05-12-2023 14:02-0400 Diastolic blood pressure 72 mm[Hg] Rosalie Saul PA-C Work Phone: [facility] 05-12-2023 14:02-0400 Heart rate 82 /min Rosalie Saul PA-C Work Phone: [facility] 05-12-2023 14:02-0400 Respiratory rate 22 /min Rosalie Saul PA-C Work Phone: [facility] 05-12-2023 14:02-0400 SaO2% (BldA) [Mass fraction] 98 % Rosalie Saul PA-C Work Phone: [facility] 05-12-2023 14:02-0400 Systolic blood pressure 144 mm[Hg] Rosalie Saul PA-C Work Phone: [facility] 04-14-2023 11:58-0500 Diastolic blood pressure 76 mm[Hg] Cordt Skraba IMPROVEMENT COORDINATOR.LEGAL STENOGRAPHER Work Phone: [facility] 04-14-2023 11:58-0500 Heart rate 92 /min Cordt Skraba IMPROVEMENT COORDINATOR.LEGAL STENOGRAPHER Work Phone: [facility] 04-14-2023 11:58-0500 SaO2% (BldA) [Mass fraction] 97 % Cordt Skraba IMPROVEMENT COORDINATOR.LEGAL STENOGRAPHER Work Phone: [facility] 04-14-2023 11:58-0500 Systolic blood pressure 117 mm[Hg] Cordt Skraba IMPROVEMENT COORDINATOR.LEGAL STENOGRAPHER Work Phone: [facility] 04-08-2023 15:34-0500 Body temperature 97.81 [degF] Salazar Meraz DO Work Phone: [facility] 04-08-2023 15:34-0500 Body weight 80.74 kg Salazar Robbinsi DO Work Phone: [facility] 04-08-2023 15:34-0500 Diastolic blood pressure 82 mm[Hg] Salazar Robbinsi DO Work Phone: [facility] 04-08-2023 15:34-0500 Heart rate 92 /min Salazar Robbinsi DO Work Phone: [facility] 04-08-2023 15:34-0500 SaO2% (BldA) [Mass fraction] 98 % Salazar Robbinsi DO Work Phone: [facility] 04-08-2023 15:34-0500 Systolic blood pressure 132 mm[Hg] Salazar Robbinsi DO Work Phone: [facility] 03-27-2023 09:29-0500 Body temperature 97.1 [degF] Dr. Mei Cummins Work Phone: [facility] 03-27-2023 09:29-0500 Diastolic blood pressure 72 mm[Hg] Dr. Mei Cummins Work Phone: [facility] 03-27-2023 09:29-0500 Heart rate 92 /min Dr. Mei Cummins Work Phone: [facility] 03-27-2023 09:29-0500 Inhaled oxygen flow rate 3 L/min Dr. Mei Cummins Work Phone: [facility] 03-27-2023 09:29-0500 Respiratory rate 18 /min Dr. Mei Cummins Work Phone: [facility] 03-27-2023 09:29-0500 SaO2% (BldA) [Mass fraction] 100 % Dr. Mei Cummins Work Phone: [facility] 03-27-2023 09:29-0500 Systolic blood pressure 137 mm[Hg] Dr. Mei Cummins Work Phone: [facility] 03-26-2023 10:07-0500 Body temperature 97.2 [degF] Dr. Mei Cummins Work Phone: [facility] 03-26-2023 10:07-0500 Diastolic blood pressure 84 mm[Hg] Dr. Mei Cummins Work Phone: [facility] 03-26-2023 10:07-0500 Heart rate 105 /min Dr. Mei Cummins Work Phone: [facility] 03-26-2023 10:07-0500 Inhaled oxygen flow rate 3 L/min Dr. Mei Cummins Work Phone: [facility] 03-26-2023 10:07-0500 Respiratory rate 18 /min Dr. Mei Cummins Work Phone: [phone] [place] [address] 03-26-2023 10:07-0500 SaO2% (BldA) [Mass fraction] 100 % Dr. Mei Cummins Work Phone: [facility] 03-26-2023 10:07-0500 Systolic blood pressure 116 mm[Hg] Dr. Mei Cummins Work Phone: [facility] 03-25-2023 16:59-0500 Body height 180.[address] Mei Cummins Work Phone: [facility] 03-25-2023 16:59-0500 Body mass index (BMI) [Ratio] 24.7 kg/m2 Dr. Mei Cummins Work Phone: [facility] 03-25-2023 16:59-0500 Body weight 80.[address] Mei Cummins Work Phone: [facility] 03-25-2023 15:45-0500 Body temperature 97.6 [degF] [facility] 03-25-2023 15:45-0500 Diastolic blood pressure 76 mm[Hg] [facility] 03-25-2023 15:45-0500 Heart rate 79 /min [facility] 03-25-2023 15:45-0500 Respiratory rate 18 /min [facility] 03-25-2023 15:45-0500 SaO2% (BldA) [Mass fraction] 100 % [facility] 03-25-2023 15:45-0500 Systolic blood pressure 141 mm[Hg] [facility] 03-25-2023 15:11-0500 Inhaled oxygen flow rate 4 L/min [facility] 03-25-2023 12:50-0500 Body height 180.34 cm [facility] 03-25-2023 12:50-0500 Body mass index (BMI) [Ratio] 24.4 kg/m2 [facility] 03-25-2023 12:50-0500 Body weight 79.4 kg [facility] 01-20-2023 11:20-0500 Body weight 83.46 kg Ab Calvillo MD Work Phone: [facility] 01-20-2023 11:20-0500 Diastolic blood pressure 90 mm[Hg] Ab Calvillo MD Work Phone: [facility] 01-20-2023 11:20-0500 Heart rate 91 /min Ab Calvillo MD Work Phone: [facility] 01-20-2023 11:20-0500 Respiratory rate 22 /min Ab Calvillo MD Work Phone: [facility] 01-20-2023 11:20-0500 SaO2% (BldA) [Mass fraction] 100 % Ab Calvillo MD Work Phone: [facility] 01-20-2023 11:20-0500 Systolic blood pressure 165 mm[Hg] Ab Calvillo MD Work Phone: [facility] 12-19-2022 11:39-0400 Body weight 81.56 kg Mei Cummins MD Work Phone: [facility] 12-19-2022 11:39-0400 Diastolic blood pressure 82 mm[Hg] Mei Cummins MD Work Phone: [facility] 12-19-2022 11:39-0400 Heart rate 80 /min Mei Cummins MD Work Phone: [facility] 12-19-2022 11:39-0400 Respiratory rate 20 /min Mei Cummins MD Work Phone: [facility] 12-19-2022 11:39-0400 Systolic blood pressure 126 mm[Hg] Mei Cummins MD Work Phone: [facility] 11-24-2022 15:15-0400 Heart rate 78 /min Dr. Mei Cummins Work Phone: [facility] 11-24-2022 15:15-0400 Inhaled oxygen flow rate 3 L/min Dr. Mei Cummins Work Phone: [facility] 11-24-2022 15:15-0400 Respiratory rate 15 /min Dr. Mei Cummins Work Phone: [facility] 11-24-2022 15:15-0400 SaO2% (BldA) [Mass fraction] 100 % Dr. Mei Cummins Work Phone: [facility] 11-24-2022 15:00-0400 Diastolic blood pressure 78 mm[Hg] Dr. Mei Cummins Work Phone: [facility] 11-24-2022 15:00-0400 Systolic blood pressure 148 mm[Hg] Dr. Mei Cummins Work Phone: [facility] 11-24-2022 13:55-0400 Body height 180.[address] Mei Cummins Work Phone: [facility] 11-24-2022 13:55-0400 Body mass index (BMI) [Ratio] 25.7 kg/m2 Dr. Mei Cummins Work Phone: [facility] 11-24-2022 13:55-0400 Body temperature 96 [degF] Dr. Mei Cummins Work Phone: [facility] 11-24-2022 13:55-0400 Body weight 83.[address] Mei Cummins Work Phone: [facility] 10-13-2022 11:32-0400 Body height 175.8 cm Ab Calvillo MD Work Phone: [facility] 10-13-2022 11:32-0400 Body weight 83.01 kg Ab Calvillo MD Work Phone: [facility] 10-13-2022 11:32-0400 Heart rate 68 /min Ab Calvillo MD Work Phone: [facility] 10-13-2022 11:32-0400 Respiratory rate 16 /min Ab Calvillo MD Work Phone: [facility] 10-13-2022 11:32-0400 SaO2% (BldA) [Mass fraction] 95 % Ab Calvillo MD Work Phone: [facility] 10-13-2022 11:30-0400 Body height 175.8 cm Pulm Wstr Work Phone: [facility] 10-13-2022 11:30-0400 Body weight 83.01 kg Pulm Wstr Work Phone: [facility] 10-13-2022 11:30-0400 Heart rate 68 /min Pulm Wstr Work Phone: [facility] 10-13-2022 11:30-0400 Respiratory rate 16 /min Pulm Wstr Work Phone: [facility] 10-13-2022 11:30-0400 SaO2% (BldA) [Mass fraction] 95 % Pulm Wstr Work Phone: [facility] 09-29-2022 14:03-0400 Body height 180.3 cm Bela Manzano MD Work Phone: [facility] 09-29-2022 14:03-0400 Body weight 82.56 kg Bela Manzano MD Work Phone: [facility] 09-29-2022 14:03-0400 Diastolic blood pressure 76 mm[Hg] Bela Manzano MD Work Phone: [facility] 09-29-2022 14:03-0400 Heart rate 80 /min Bela Manzano MD Work Phone: [facility] 09-29-2022 14:03-0400 SaO2% (BldA) [Mass fraction] 99 % Bela Manzano MD Work Phone: [facility] 09-29-2022 14:03-0400 Systolic blood pressure 153 mm[Hg] Bela Manzano MD Work Phone: [facility] 08-07-2022 06:23-0400 Body mass index (BMI) [Ratio] 24.8 kg/m2 Dr. Mei Cummins Work Phone: [facility] 08-07-2022 06:23-0400 Body temperature 97.9 [degF] Dr. Mei Cummins Work Phone: [facility] 08-07-2022 06:23-0400 Body weight 80.[address] Mei Cummins Work Phone: [facility] 08-07-2022 06:23-0400 Diastolic blood pressure 65 mm[Hg] Dr. Mei Cummins Work Phone: [facility] 08-07-2022 06:23-0400 Heart rate 77 /min Dr. Mei Cummins Work Phone: [facility] 08-07-2022 06:23-0400 Inhaled oxygen flow rate 3 L/min Dr. Mei Cummins Work Phone: [facility] 08-07-2022 06:23-0400 Respiratory rate 22 /min Dr. Mei Cummins Work Phone: [facility] 08-07-2022 06:23-0400 SaO2% (BldA) [Mass fraction] 98 % Dr. Mei Cummins Work Phone: [facility] 08-07-2022 06:23-0400 Systolic blood pressure 124 mm[Hg] Dr. Mei Cummins Work Phone: [facility] 08-05-2022 11:35-0400 Diastolic blood pressure 64 mm[Hg] Tyrell Vigil DO Work Phone: [facility] 08-05-2022 11:35-0400 Heart rate 89 /min Tyrell Vigil DO Work Phone: [facility] 08-05-2022 11:35-0400 SaO2% (BldA) [Mass fraction] 99 % Tyrell Vigil DO Work Phone: [facility] 08-05-2022 11:35-0400 Systolic blood pressure 124 mm[Hg] Tyrell Vigil DO Work Phone: [facility] 07-29-2022 11:09-0400 Diastolic blood pressure 64 mm[Hg] Tyrell Vigil DO Work Phone: [facility] 07-29-2022 11:09-0400 Heart rate 76 /min Tyrell Vigil DO Work Phone: [facility] 07-29-2022 11:09-0400 SaO2% (BldA) [Mass fraction] 97 % Tyrell Vigil DO Work Phone: [facility] 07-29-2022 11:09-0400 Systolic blood pressure 126 mm[Hg] Tyrell Vigil DO Work Phone: [facility] 06-26-2022 10:58-0400 Body weight 80.2 kg Mei Cummins MD Work Phone: [facility] 06-26-2022 10:58-0400 Diastolic blood pressure 82 mm[Hg] Mei Cummins MD Work Phone: [facility] 06-26-2022 10:58-0400 Heart rate 80 /min Mei Cummins MD Work Phone: [facility] 06-26-2022 10:58-0400 Respiratory rate 24 /min Mei Cummins MD Work Phone: [facility] 06-26-2022 10:58-0400 Systolic blood pressure 134 mm[Hg] Mei Cummins MD Work Phone: [facility] 06-03-2022 10:59-0400 Diastolic blood pressure 72 mm[Hg] Tyrell Vigil DO Work Phone: [facility] 06-03-2022 10:59-0400 Heart rate 84 /min Tyrell Vigil DO Work Phone: [facility] 06-03-2022 10:59-0400 SaO2% (BldA) [Mass fraction] 99 % Tyrell Vgiil DO Work Phone: [facility] 06-03-2022 10:59-0400 Systolic blood pressure 132 mm[Hg] Tyrell Vigil DO Work Phone: [facility] 05-20-2022 09:45-0400 Diastolic blood pressure 66 mm[Hg] Tyrell Vigil DO Work Phone: [facility] 05-20-2022 09:45-0400 Heart rate 91 /min Tyrell Gordonle DO Work Phone: [facility] 05-20-2022 09:45-0400 SaO2% (BldA) [Mass fraction] 99 % Tyrell Vigil DO Work Phone: [facility] 05-20-2022 09:45-0400 Systolic blood pressure 130 mm[Hg] Tyrell Vigil DO Work Phone: [facility] 05-12-2022 11:41-0400 Body weight 79.38 kg Bela Manzano MD Work Phone: [facility] 05-12-2022 11:41-0400 Diastolic blood pressure 72 mm[Hg] Bela Manzano MD Work Phone: [facility] 05-12-2022 11:41-0400 Heart rate 95 /min Bela Manzano MD Work Phone: [facility] 05-12-2022 11:41-0400 SaO2% (BldA) [Mass fraction] 99 % Bela Manzano MD Work Phone: [facility] 05-12-2022 11:41-0400 Systolic blood pressure 148 mm[Hg] Bela Manzano MD Work Phone: [facility] 03-04-2022 13:30-0500 Diastolic blood pressure 64 mm[Hg] Tyrell Vigil DO Work Phone: [facility] 03-04-2022 13:30-0500 Heart rate 86 /min Tyrell Vigil DO Work Phone: [facility] 03-04-2022 13:30-0500 SaO2% (BldA) [Mass fraction] 95 % Tyrell Vigil DO Work Phone: [facility] 03-04-2022 13:30-0500 Systolic blood pressure 130 mm[Hg] Tyrell Vigil DO Work Phone: [facility] 02-05-2022 10:47-0500 Body height 180.[address] Mei Cummins Work Phone: [facility] 02-05-2022 10:47-0500 Body mass index (BMI) [Ratio] 24.4 kg/m2 Dr. Mei Cummins Work Phone: [facility] 02-05-2022 10:47-0500 Body temperature 97.8 [degF] Dr. Mei Cummins Work Phone: [facility] 02-05-2022 10:47-0500 Body weight 79.[address] Mei Cummins Work Phone: [facility] 02-05-2022 10:47-0500 Diastolic blood pressure 79 mm[Hg] Dr. Mei Cummins Work Phone: [facility] 02-05-2022 10:47-0500 Heart rate 94 /min Dr. Mei Cummins Work Phone: [facility] 02-05-2022 10:47-0500 Inhaled oxygen flow rate 3 L/min Dr. Mei Cummins Work Phone: [facility] 02-05-2022 10:47-0500 Respiratory rate 29 /min Dr. Mei Cummins Work Phone: [facility] 02-05-2022 10:47-0500 SaO2% (BldA) [Mass fraction] 95 % Dr. Mei Cummins Work Phone: [facility] 02-05-2022 10:47-0500 Systolic blood pressure 143 mm[Hg] Dr. Mei Cummins Work Phone: [facility] 01-25-2022 15:43-0500 Diastolic blood pressure 84 mm[Hg] [facility] 01-25-2022 15:43-0500 Heart rate 85 /min [facility] 01-25-2022 15:43-0500 Respiratory rate 16 /min [facility] 01-25-2022 15:43-0500 SaO2% (BldA) [Mass fraction] 100 % [facility] 01-25-2022 15:43-0500 Systolic blood pressure 138 mm[Hg] [facility] 01-25-2022 14:32-0500 Body temperature 98 [degF] [facility] 01-25-2022 13:20-0500 Body height 180.34 cm [facility] Work Phone: 01-25-2022 13:20-0500 Body mass index (BMI) [Ratio] 24.4 kg/m2 [facility] 01-25-2022 13:20-0500 Body weight 79.37 kg [facility] 01-25-2022 13:20-0500 Inhaled oxygen flow rate 3 L/min [facility] 01-21-2022 10:48-0500 Diastolic blood pressure 81 mm[Hg] Tyrell Vigil DO Work Phone: [facility] 01-21-2022 10:48-0500 Heart rate 110 /min Tyrell Vigil DO Work Phone: [facility] 01-21-2022 10:48-0500 SaO2% (BldA) [Mass fraction] 98 % Tyrell Vigil DO Work Phone: [facility] 01-21-2022 10:48-0500 Systolic blood pressure 145 mm[Hg] Tyrell Vigil DO Work Phone: [facility] 12-16-2021 14:31-0400 Body weight 82.1 kg Mei Cummins MD Work Phone: [facility] 12-16-2021 14:31-0400 Diastolic blood pressure 78 mm[Hg] Mei uCmmins MD Work Phone: [facility] 12-16-2021 14:31-0400 Heart rate 80 /min Mei Cummins MD Work Phone: [facility] 12-16-2021 14:31-0400 Respiratory rate 20 /min Mei Cummins MD Work Phone: [facility] 12-16-2021 14:31-0400 Systolic blood pressure 136 mm[Hg] Mei Cummins MD Work Phone: [facility] 12-15-2021 13:50-0400 Heart rate 115 /min [facility] Work Phone: 12-15-2021 13:50-0400 Respiratory rate 25 /min [facility] Work Phone: 12-15-2021 13:40-0400 Diastolic blood pressure 87 mm[Hg] [facility] Work Phone: 12-15-2021 13:40-0400 Inhaled oxygen flow rate 3 L/min [facility] Work Phone: 12-15-2021 13:40-0400 SaO2% (BldA) [Mass fraction] 97 % [facility] Work Phone: 12-15-2021 13:40-0400 Systolic blood pressure 137 mm[Hg] [facility] Work Phone: 12-15-2021 12:08-0400 Body temperature 98.9 [degF] [facility] Work Phone: 12-15-2021 12:05-0400 Body height 180.34 cm [facility] Work Phone: 12-15-2021 12:05-0400 Body mass index (BMI) [Ratio] 25.2 kg/m2 [facility] Work Phone: 12-15-2021 12:05-0400 Body weight 82.1 kg [facility] Work Phone: 11-25-2021 13:16-0400 Body weight 80.74 kg Bela Manzano MD Work Phone: [facility] 11-25-2021 13:16-0400 Diastolic blood pressure 80 mm[Hg] Bela Manzano MD Work Phone: [facility] 11-25-2021 13:16-0400 Heart rate 104 /min Bela Manzano MD Work Phone: [facility] 11-25-2021 13:16-0400 SaO2% (BldA) [Mass fraction] 98 % Bela Manzano MD Work Phone: [facility] 11-25-2021 13:16-0400 Systolic blood pressure 120 mm[Hg] Bela Manzano MD Work Phone: [facility] 11-19-2021 11:40-0400 Body temperature 97.39 [degF] Salazar Masci DO Work Phone: [facility] 11-19-2021 11:40-0400 Body weight 83.01 kg Salazar Masci DO Work Phone: [facility] 11-19-2021 11:40-0400 Diastolic blood pressure 73 mm[Hg] Salazar Masci DO Work Phone: [facility] 11-19-2021 11:40-0400 Heart rate 82 /min Salazar Masci DO Work Phone: [facility] 11-19-2021 11:40-0400 SaO2% (BldA) [Mass fraction] 100 % Salazar Masci DO Work Phone: [facility] 11-19-2021 11:40-0400 Systolic blood pressure 126 mm[Hg] Salazar Masci DO Work Phone: [facility] 09-04-2021 14:44-0400 Body weight 82.46 kg Mei Cummins MD Work Phone: [facility] 09-04-2021 14:44-0400 Diastolic blood pressure 74 mm[Hg] Mei Cummins MD Work Phone: [facility] 09-04-2021 14:44-0400 Heart rate 80 /min Mei Cummins MD Work Phone: [facility] 09-04-2021 14:44-0400 Respiratory rate 20 /min Mei Cummins MD Work Phone: [facility] 09-04-2021 14:44-0400 Systolic blood pressure 128 mm[Hg] Mei Cummins MD Work Phone: [facility] 08-07-2021 10:44-0400 Body height 180.[address] Mei Cummins Work Phone: [facility] Work Phone: 08-07-2021 10:44-0400 Body mass index (BMI) [Ratio] 25.2 kg/m2 Dr. Mei Cummins Work Phone: [facility] Work Phone: 08-07-2021 10:44-0400 Body temperature 98.6 [degF] Dr. Mei Cummins Work Phone: [facility] Work Phone: 08-07-2021 10:44-0400 Body weight 82.[address] Mei Cummins Work Phone: [facility] Work Phone: 08-07-2021 10:44-0400 Diastolic blood pressure 74 mm[Hg] Dr. Mei Cummins Work Phone: [facility] Work Phone: 08-07-2021 10:44-0400 Heart rate 50 /min Dr. Mei Cummins Work Phone: [facility] Work Phone: 08-07-2021 10:44-0400 Inhaled oxygen flow rate 3 L/min Dr. Mei Cummins Work Phone: [facility] Work Phone: 08-07-2021 10:44-0400 Respiratory rate 22 /min Dr. Mei Cummins Work Phone: [facility] Work Phone: 08-07-2021 10:44-0400 SaO2% (BldA) [Mass fraction] 93 % Dr. Mei Cummins Work Phone: [facility] Work Phone: 08-07-2021 10:44-0400 Systolic blood pressure 148 mm[Hg] Dr. Mei Cummins Work Phone: [facility] Work Phone: 07-19-2021 10:32-0400 Body temperature 97.7 [degF] Salazar Itzeli DO Work Phone: [facility] 07-19-2021 10:32-0400 Body weight 82.78 kg Salazar Masci DO Work Phone: [facility] 07-19-2021 10:32-0400 Diastolic blood pressure 74 mm[Hg] Salazar Masci DO Work Phone: [facility] 07-19-2021 10:32-0400 Heart rate 91 /min Salazar Masci DO Work Phone: [facility] 07-19-2021 10:32-0400 SaO2% (BldA) [Mass fraction] 100 % Salazar Masci DO Work Phone: [facility] 07-19-2021 10:32-0400 Systolic blood pressure 125 mm[Hg] Salazar Itzeli DO Work Phone: [facility] 06-04-2021 15:41-0400 Body weight 82.1 kg Mei Cmumins MD Work Phone: [facility] 06-04-2021 15:41-0400 Diastolic blood pressure 76 mm[Hg] Mei Cummins MD Work Phone: [facility] 06-04-2021 15:41-0400 Heart rate 52 /min Mei Cummins MD Work Phone: [facility] 06-04-2021 15:41-0400 Respiratory rate 28 /min Mei Cummins MD Work Phone: [facility] 06-04-2021 15:41-0400 Systolic blood pressure 138 mm[Hg] Mei Cummins MD Work Phone: [facility] 04-07-2020 13:08-0500 Pulse Oximetry 93 % [facility] [employer] [facility] [place] 04-07-2020 10:55-0500 Body Temperature 97.9 [degF] [facility] [place] 04-07-2020 10:55-0500 BP Diastolic 64 mm[Hg] [facility] [place] 04-07-2020 10:55-0500 BP Systolic 116 mm[Hg] [facility] [place] 04-07-2020 10:55-0500 Pulse (Heart Rate) 92 /min [facility] [place] 04-07-2020 10:55-0500 Respiratory Rate 18 /min [facility] [place] 04-07-2020 02:59-0500 BMI (Body Mass Index) 25.01 kg/m2 [facility] [employer] [facility], [place] 04-07-2020 02:59-0500 Body weight 81.33 kg [facility] [place] 04-05-2020 18:57-0500 Height 180.3 cm [facility] [place] 03-03-2020 12:58-0500 Body Temperature 98.4 [degF] [facility] [place] [facility] 03-03-2020 12:58-0500 BP Diastolic 65 mm[Hg] [facility] [place] [facility] [place] 03-03-2020 12:58-0500 BP Systolic 114 mm[Hg] [facility] [place] [facility] [place] 03-03-2020 12:58-0500 Pulse (Heart Rate) 84 /min [facility] [place] 03-03-2020 12:58-0500 Pulse Oximetry 93 % [facility] [place] 03-03-2020 12:58-0500 Respiratory Rate 18 /min [facility] [place] [facility] 02-21-2020 08:25-0500 Height 182.9 cm [facility] [place] 02-20-2020 10:31-0500 BMI (Body Mass Index) 26.45 kg/m2 [facility] [place] 02-20-2020 10:31-0500 Body weight 88.45 kg Oliver[facility] [place] 02-16-2020 11:38-0500 BMI (Body Mass Index) 26.85 kg/m2 [facility] [place] 02-16-2020 11:38-0500 Body Temperature 98.4 [degF] [facility] [place] 02-16-2020 11:38-0500 Body weight 89.81 kg Oliverio [facility] [place] 02-16-2020 11:38-0500 BP Diastolic 74 mm[Hg] [facility] [place] 02-16-2020 11:38-0500 BP Systolic 132 mm[Hg] [facility] [place] 02-16-2020 11:38-0500 Height 182.9 cm [facility] [place] 02-16-2020 11:38-0500 Pulse (Heart Rate) 82 /min [facility] [place] 02-16-2020 11:38-0500 Pulse Oximetry 97 % [facility] [place] 02-16-2020 11:38-0500 Respiratory Rate 16 /min [facility] [place] Encounters Encounter Date Encounter Type Care Provider Facility Start: 09-14-2024 ambulatory Juan Carlos Cortes ty:[facility] Start: 09-09-2024 End: 09-09-2024 ambulatory [facility] Facility:[facility] Start: 09-09-2024 End: 09-09-2024 Subsequent hospital visit by physician [facility] (I-Stat) Work Phone: Cat Scan Comment on above: Squamous carcinoma o f lung, 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.92] Start: 09-08-2024 End: 09-08-2024 Telephone encounter Salazar Meraz DO Work Phone: Hematology/Oncology Comment on above: Orders Start: 08-31-2024 End: 08-31-2024 Office outpatient visit 15 minutes Kailash Cordova IMPROVEMENT COORDINATOR.LEGAL STENOGRAPHER Work Phone: Pulmonary Medicine Comment on above: 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) (Primary Dx); Chronic hypoxemic respiratory failure (HCC); Bronchiectasis without complication (HCC); History of cancer of lower lobe bronchus or lung; Iron 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 loss Start: 08-31-2024 End: 08-31-2024 ambulatory KAILASH CORDOVA Facility:[facility] Start: 08-24-2024 End: 08-29-[address] Mei Cummins MD Work Phone: -[facility] [place] Start: 08-24-2024 End: 08-29-2024 Dr. 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 Mei Cummins MD Work Phone: [facility] Work Phone: Start: 07-27-2024 End: 07-30-2024 Dr. Rasta Mazariegos DPM -[facility] Work Phone: Start: 07-21-2024 ambulatory VASHTI OTOOLE Facilit y:[facility] Start: 07-18-2024 End: 07-18-2024 Orders Only Salazar Meraz DO Work Phone: Hematology/Oncology Comment on above: Iron deficiency anem ia due to chronic blood loss (Primary Dx) Start: 07-15-2024 End: 07-15-2024 Telephone encounter Salazar Meraz DO Work Phone: Radiation Oncology Comment on above: Appointment Start: 07-13-2024 End: 07-18-2024 ambulatory Salazar Meraz DO Work Phone: Hematology/Oncology Comment on above: Eliquis Question Start: 07-13-2024 Dr. Rasta moses DPM -[facility] Work Phone: Start: 07-06-2024 Dr. Rasta moses DPM -[facility] Work Phone: Start: 07-01-2024 End: 07-01-2024 ambulatory Treatment Rm 14 Joshua [facility] Work Phone: Hematology/Oncology Comment on above: Iron malabsorption ( HCC) (Primary Dx); Iron 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 loss; Gastrointestinal hemorrhage associated with gastric ulcer Start: 07-01-2024 End: 07-01-2024 Office outpatient visit 25 minutes Mei Cummins MD Work Phone: [facility] Comment on above: Anxiety (Primary Dx) ; Depression, unspecified depression type; Essential hypertension; Lower leg edema; Elevated glucose; Hyperlipidemia, mixed; Coronary artery disease involving [place] coronary artery of [place] heart without angina pectoris; S/P CABG x 3; PAD (peripheral artery disease); Prostate cancer (HCC); Acute and chronic respiratory failure with hypoxia (HCC); Chronic pulmonary embolism without acute cor pulmonale, unspecified pulmonary embolism type (HCC); Chronic obstructive pulmonary disease, unspecified COPD type (HCC); Gastrointestinal hemorrhage associated with gastric ulcer; Iron 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 loss; Nausea Start: 07-01-2024 End: 07-01-2024 ambulatory MEI CUMMINS Facility:[facility] Start: 06-30-2024 End: 06-30-2024 [facility] Work Phone: Start: 06-30-2024 End: 06-30-[address] Mei Cummins MD Work Phone: [facility] Work Phone: Start: 06-29-2024 End: 06-30-2024 ambulatory Treatment 14 [facility] Work Phone: Hematology/Oncology Comment on above: Iron malabsorption ( HCC) (Primary Dx); Iron 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 loss; Gastrointestinal hemorrhage associated with gastric ulcer Start: 06-27-2024 End: 06-27-2024 ambulatory Treatment 14 [facility] Work Phone: Hematology/Oncology Comment on above: Iron malabsorption ( HCC) (Primary Dx); Iron 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 loss; Gastrointestinal hemorrhage associated with gastric ulcer Start: 06-26-2024 End: 06-28-2024 ambulatory Kailash Cordova APRN.LEGAL STENOGRAPHER Work Phone: Pulmonary Medicine Comment on above: Nebulizer Medication Start: 06-24-2024 End: 06-24-2024 ambulatory KAILASH CORDOVA Facility:[facility] Start: 06-23-2024 End: 06-23-2024 ambulatory SALAZAR MERAZ Facility:[facility] Start: 06-22-2024 End: 06-22-2024 Telephone encounter Shala DRISCOLL Hematology/Oncology Comment on above: Social Work Services ; 1st Time Treatment Report Start: 06-22-2024 End: 06-29-2024 ambulatory Juan Carlos Viveros Facility:[facility] Start: 06-22-2024 End: 06-29-2024 Dr. Rasta Mazariegos DP -[facility] Work Phone: Start: 06-22-2024 End: 06-22-2024 ambulatory TWILA RAIZA KIMBERLYURIEL Facility:[facility] Start: 06-21-2024 End: 06-21-2024 ambulatory Treatment Rm 15 Joshua [facility] Work Phone: Hematology/Oncology Comment on above: Iron deficiency anem ia due to chronic blood loss (Primary Dx); Iron malabsorption (HCC); Gastrointestinal hemorrhage associated with gastric ulcer Start: 06-15-2024 Dr. Rasta moses DPM -[facility] Work Phone: Start: 06-13-2024 End: 06-13-2024 Garcia Moreno DO -[facility] Work Phone: Start: 06-13-2024 End: 06-13-[address] Tristan Salter DO Work Phone: [facility] Work Phone: Start: 06-13-2024 End: 06-13-2024 ambulatory Teresa Garner Facility:[facility] Start: 06-10-2024 End: 06-10-[address] Tristan Salter DO Work Phone: [facility] Work Phone: Start: 06-10-2024 End: 06-10-2024 [facility] Start: 06-09-2024 End: 06-10-2024 ambulatory Rosalie Martinez PA-C Work Phone: Pulmonary Medicine Comment on above: Prednisone question Start: 06-09-2024 End: 06-10-2024 Subsequent hospital visit by physician Mei Cummins MD Work Phone: [facility] [place] Comment on above: Recent Hospital visi t Start: 06-08-2024 End: 06-08-2024 Sosa [facility] Work Phone: Start: 06-08-2024 End: 06-09-2024 Refill Mei Cummins MD Work Phone: [facility] Comment on above: Refill Request Start: 06-08-2024 Dr. Rasta OAKESM -[facility] Work Phone: Start: 06-08-2024 End: 06-08-2024 ambulatory Sosa Silva Facility:[facility] Start: 06-07-2024 End: 06-07-2024 Telephone encounter Mei Cummins MD Work Phone: [facility] Comment on above: Home Health Point of Care Results Start: 06-05-2024 Dr. Jacob Suazo [facility] Work Phone: Start: 06-04-2024 Garcia Moreno DO [facility] Start: 06-04-2024 Dr. Jacob Suazo [facility] Work Phone: Start: 06-03-2024 ambulatory Elizabeth Santamaria Facility :[facility] Start: 06-03-2024 End: 06-05-2024 Evaluation and management of inpatient Dr. Mei Cummins MD Work Phone: [facility] Work Phone: Start: 06-03-2024 End: 06-05-2024 Dr. 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 Rasta moses DP -[facility] Work Phone: Start: 05-26-2024 End: 05-27-2024 Telephone encounter Mei Cummins MD Work Phone: [facility] Comment on above: Home Health Update Start: 05-24-2024 Non-patient / Non-visit Dr. Malu Steen DO -[place] [facility] Work Phone: Start: 05-24-2024 Dr. Malu Steen DO -[facility] Work Phone: Start: 05-23-2024 Non-patient / Non-visit Dr. Migue Cortes [facility] Work Phone: Start: 05-23-2024 Dr. Mei knox [facility] Work Phone: Start: 05-22-2024 ambulatory Jacob Suazo Fac ility:[facility] Start: 05-22-2024 End: 05-24-2024 Evaluation and management of inpatient Dr. Jacob Suazo DO -Progressive Care Unit Work Phone: Start: 05-22-2024 End: 05-24-2024 Dr. [facility] Work Phone: Start: 05-11-2024 ambulatory Rosa lama NP Facility:[facility] Start: 05-11-2024 Non-patient / Non-visit Rosa Garcia PSYCHOMETRIC EXAMINER-C -[facility] Start: 05-11-2024 Rosa lama PSYCHOMETRIC EXAMINER-C -[facility] Start: 05-11-2024 End: 05-30-[address] Rasta Mazariegos DPM -[facility] Work Phone: Start: 05-11-[address] Yanna Mazariegos DPM -[facility] Work Phone: Start: 05-11-2024 End: 05-30-2024 Dr. Rasta Mazariegos DPM -[facility] Work Phone: Start: 05-11-2024 End: 05-30-[address] Mei Cummins MD Work Phone: [facility] Work Phone: Start: 05-05-2024 End: 05-05-2024 Telephone encounter Mei Cummins MD Work Phone: [facility] Comment on above: Patient Request Start: 05-04-2024 End: 05-04-2024 ambulatory Rosalie Martinez PADaneC Work Phone: Pulmonary Medicine Comment on above: Rogflumilast Medicat ion Start: 04-27-2024 Non-patient / Non-visit Rosa Garcia PSYCHOMETRIC EXAMINER-C -[facility] Start: 04-27-2024 End: 04-29-2024 ambulatory Juan Carlos Vvieros Facility:[facility] Start: 04-27-2024 End: 04-29-2024 Discharged Recurring Rosa Garcia PSYCHOMETRIC EXAMINER-C -[facility] Work Phone: Start: 04-27-2024 End: 04-29-2024 Rosa Garcia PSYCHOMETRIC EXAMINER-C -[facility] Work Phone: Start: 04-26-2024 End: 04-26-2024 ambulatory BELA MANZANO Facility:[facility] Start: 04-20-2024 End: 04-20-2024 Telephone encounter Mei Cummins MD Work Phone: [facility] Comment on above: Patient Update Start: 04-14-2024 End: 04-14-2024 ambulatory BETITO MAURO Facility:[facility] Start: 04-14-2024 End: 04-14-2024 Patient encounter procedure Betito Mauro MD Work Phone: Vascular Surgery Comment on above: PAD (peripheral luzmaria ry disease) (HCC) (Primary Dx) Start: 04-13-2024 ambulatory Rosa lama NP Facility:[facility] Start: 04-13-2024 Non-patient / Non-visit Rosa Garcia PSYCHOMETRIC EXAMINER-C -[facility] Start: 04-13-2024 Rosa lama PSYCHOMETRIC EXAMINER-C -[facility] Start: 04-12-2024 End: 04-14-2024 Refill Salazar Angelique Meraz DO Work Phone: Hematology/Oncology Comment on above: Refill Request Start: 04-04-2024 End: 04-07-2024 Telephone encounter Mei Cummins MD Work Phone: [facility] [place] Comment on above: Forms (AEP) Start: 03-31-2024 End: 03-31-2024 Telephone encounter Mei Cummins MD Work Phone: [facility] [place] Comment on above: Results Start: 03-30-2024 ambulatory Juan Carlos Barberfelix Facili ty:[facility] Start: 03-30-2024 Non-patient / Non-visit Rosa Garcia PSYCHOMETRIC EXAMINER-C -[facility] Start: 03-30-2024 Rosa lama PSYCHOMETRIC EXAMINER-C -[facility] Start: 03-30-2024 End: 04-01-2024 Discharged Recurring Rosa Garcia PSYCHOMETRIC EXAMINER-C -[facility]aling Center Work Phone: Start: 03-30-2024 End: 04-01-2024 Rosa Garcia PSYCHOMETRIC EXAMINER-C -[facility]aling Center Work Phone: Start: 03-30-2024 End: 04-01-2024 ambulatory Juan Carlos Viveros Facility:[facility] Start: 03-30-2024 End: 03-30-[address] Mei Cummins MD -Laboratory, Specimen Work Phone: Start: 03-30-2024 End: 03-30-2024 Dr. Mei Cummins MD -Laboratory, Specimen Work Phone: Start: 03-30-2024 End: 03-30-2024 ambulatory Mei Cummins Facility:[facility] Start: 03-23-2024 End: 03-23-2024 ambulatory ROSALIE MARTINEZ Facility:[facility] Start: 03-23-2024 End: 03-23-2024 Patient encounter procedure Rosalie Martinez PA-C Work Phone: Pulmonary Medicine Comment on above: COPD, frequent exace rbations (HCC) (Primary Dx); Bronchiectasis without complication (HCC); Chronic hypoxemic respiratory failure (HCC); History of cancer of lower lobe bronchus or lung; Former smoker; Encounter for long-term (current) use of medications Start: 03-22-2024 End: 03-22-2024 Telephone encounter Mei Cummins MD Work Phone: [facility] [place] Comment on above: Patient Update Start: 03-21-2024 End: 03-21-2024 ambulatory SALAZAR MERAZ Facility:[facility] Start: 03-21-2024 End: 03-21-2024 Office outpatient visit 25 minutes Salazar Meraz DO Work Phone: Hematology/Oncology Comment on above: Squamous carcinoma o f lung, left (HCC) (Primary Dx); Chronic pulmonary embolism without acute cor pulmonale, unspecified pulmonary embolism type (HCC); History of prostate cancer Start: 03-21-2024 End: 03-23-2024 E-mail encounter from caregiver Juan Carlos Barberfelix Work Phone: Podiatry Start: 03-21-2024 End: 03-23-2024 Patient encounter procedure Juan Carlos Viveros Work Phone: Podiatry Comment on above: wound center referra l Start: 03-16-2024 End: 03-17-2024 Telephone encounter Bela Manzano MD Work Phone: Cardiology Comment on above: Results Start: 03-15-2024 End: 03-15-2024 ambulatory JUAN CARLOS VIVEROS Facility:[facility] Start: 03-15-2024 End: 03-15-2024 Patient encounter procedure Juan Carlos Viveros Work Phone: Podiatry Comment on above: Skin ulcer, limited to breakdown of skin (HCC) (Primary Dx); Peripheral arterial disease (HCC) Start: 03-14-2024 End: 03-14-2024 ambulatory MEI CUMMINS Facility:[facility] Start: 03-14-2024 End: 03-14-2024 Subsequent hospital visit by physician [facility] (I-Stat) Work Phone: Cat Scan Comment on above: Squamous carcinoma o f lung, 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.92] Start: 03-10-2024 End: 03-10-2024 Patient encounter procedure Betito Mauro MD Work Phone: Vascular Surgery Comment on above: Peripheral vascular disease (HCC) (Primary Dx); Chronic pulmonary embolism without acute cor pulmonale, unspecified pulmonary embolism type (HCC); Chronic hypoxemic respiratory failure (HCC) Start: 03-10-2024 End: 03-10-2024 ambulatory BETITO MAURO Facility:[facility] Start: 03-03-2024 End: 03-03-2024 ambulatory JUAN CARLOS VIVEROS Facility:[facility] Start: 03-03-2024 End: 03-03-2024 Patient encounter procedure Juan Carlos Viveros Work Phone: Podiatry Comment on above: Skin ulcer, limited to breakdown of skin (HCC) (Primary Dx); Peripheral arterial disease (HCC); Venous insufficiency Start: 02-29-2024 End: 02-29-2024 Telephone encounter Mei Cummins MD Work Phone: [facility] Comment on above: resume skilled nursi ng Start: 02-28-2024 End: 02-29-2024 Refill Mei Cummins MD Work Phone: [facility] Comment on above: Refill Request Start: 02-22-2024 Non-patient / Non-visit Dr. Migue Cortes [facility] Work Phone: Start: 02-22-2024 Dr. Mei knox [facility] Work Phone: Start: 02-21-2024 Non-patient / Non-visit Dr. Chavez [facility] Work Phone: Start: 02-21-2024 Dr. Jacob Suazo [facility] Work Phone: Start: 02-20-2024 Non-patient / Non-visit Dr. Chavez [facility] Work Phone: Start: 02-20-2024 [facility] Work [facility]: Start: 02-19-2024 ambulatory Sushila Rivers Facility :[facility] Start: 02-19-2024 End: 02-22-2024 Evaluation and management of inpatient Dr. Mei Cortes DO Medical Surgical 3 Work Phone: Start: 02-19-2024 End: 02-22-2024 [facility] Work Phone: Start: 02-18-2024 End: 02-18-2024 Telephone encounter Mei Cummins MD Work Phone: [facility] Comment on above: residential plan of care Start: 02-17-2024 End: 02-17-2024 ambulatory TYRELL VIGIL Facility:[facility] Start: 02-16-2024 End: 02-16-2024 ambulatory JUAN CARLOS SAMUELSJOSE Facility:[facility] Start: 02-16-2024 End: 02-16-2024 Patient encounter procedure Juan Carlos Viveros Work Phone: Podiatry Comment on above: Skin ulcer, limited to breakdown of skin (HCC) (Primary Dx); Peripheral arterial disease (HCC); Venous insufficiency Start: 02-12-2024 End: 02-12-2024 Refill Jamshid Brown APRN.CNP Work Phone: [facility] Comment on above: Refill Request Start: 02-11-2024 End: 02-11-2024 Patient encounter procedure Sosa Silva [facility] Work Phone: Start: 02-11-2024 End: 02-11-2024 Sosa [facility] Work Phone: Start: 02-11-2024 End: 02-11-2024 ambulatory Sosa Silva Facility:[facility] Start: 02-08-2024 End: 02-08-2024 ambulatory Ab Calvillo MD Work Phone: Pulmonary Medicine Comment on above: Prednisone Start: 02-05-2024 End: 02-05-2024 ambulatory BETITO MAURO Facility:[facility] Start: 02-05-2024 End: 02-05-2024 Patient encounter procedure Betito Mauro MD Work Phone: Vascular Surgery Comment on above: Peripheral arterial disease (HCC) (Primary Dx) Start: 02-04-2024 End: 02-04-2024 ambulatory JUAN CARLOS VIVEROS Facility:[facility] Start: 02-03-2024 End: 02-03-2024 Subsequent hospital visit by physician Ct [facility] Radiology Comment on above: Peripheral vascular disease (HCC) [I73.9] Start: 02-01-2024 End: 02-01-2024 ambulatory SHARYN SKY Facility:[facility] Start: 01-29-2024 End: 01-29-2024 ambulatory Tiffanie Rushing RN [facility] Radiology Comment on above: Upcoming CAT Scan wi th blood work needed Peripheral vascular disease, unspecified (HCC) (Primary Dx) Start: 01-29-2024 End: 01-29-2024 E-mail encounter from caregiver Tiffanie Rushing RN [facility] Radiology Start: 01-23-2024 End: 02-16-2024 Refill Rosalie Martinez PA-C Work Phone: Pulmonary Medicine Comment on above: Refill Request Start: 01-21-2024 End: 01-21-2024 ambulatory JUAN CARLOS VIVEROS Facility:[facility] Start: 01-21-2024 End: 01-21-2024 Patient encounter procedure Juan Carlos Barberfelix Work Phone: Podiatry Comment on above: Skin ulcer, limited to breakdown of skin (HCC) (Primary Dx); Peripheral arterial disease (HCC); Venous insufficiency Start: 01-20-2024 End: 01-21-2024 Telephone encounter Mei Cummins MD Work Phone: [facility] [place] Comment on above: Home Health orders Start: 01-19-2024 End: 01-19-2024 ambulatory KAILASH CORDOVA Facility:[facility] Start: 01-19-2024 End: 01-19-2024 Office outpatient visit 40 minutes Kailash Cordova IMPROVEMENT COORDINATOR.LEGAL STENOGRAPHER Work Phone: Pulmonary Medicine Comment on above: Pneumonia of left lo wer lobe due to infectious organism (Primary Dx); Bronchiectasis without complication (HCC); Chronic hypoxemic respiratory failure (HCC) Start: 01-12-2024 End: 01-12-2024 ambulatory KAILASH CORDOVA Facility:[facility] Start: 01-12-2024 End: 01-12-2024 Subsequent hospital visit by physician [facility] (I-Stat) Work Phone: Cat Scan Comment on above: Pneumonia of left gail ng due to infectious organism, unspecified part of lung [J18.9] Start: 01-08-2024 End: 01-08-2024 Telephone encounter Mei Cummins MD Work Phone: [facility] Comment on above: Orders Start: 01-07-2024 End: 01-07-2024 Emergency department patient visit Mei Cummins Facility:[facility] Start: 01-05-2024 End: 01-05-2024 Telephone encounter Tyrell Vigil DO Work Phone: Vascular Surgery Comment on above: Appointment Start: 01-05-2024 End: 01-05-2024 Subsequent hospital visit by physician X[facility] Niels Work Phone: Radiology Comment on above: Skin ulcer, limited to breakdown of skin (HCC) [L98.491] Start: 01-05-2024 End: 01-05-2024 ambulatory JUAN CARLOS VIVEROS Facility:[facility] Start: 01-05-2024 End: 01-05-2024 Patient encounter procedure Juan Carlos Viveros Work Phone: Podiatry Comment on above: Skin ulcer, limited to breakdown of skin (HCC) (Primary Dx); Peripheral arterial disease (HCC); Venous insufficiency Start: 12-24-2023 End: 12-24-2023 ambulatory JUAN CARLOS VIVEROS Facility:[facility] Start: 12-24-2023 End: 12-24-2023 Patient encounter procedure Juan Carlos Viveros Work Phone: Podiatry Comment on above: Skin ulcer, limited to breakdown of skin (HCC) (Primary Dx); Peripheral arterial disease (HCC); Venous insufficiency Start: 12-23-2023 End: 12-23-2023 Patient encounter procedure Twila Koyuri PRABHAKAR.LEGAL STENOGRAPHER Work Phone: [facility] [place] Comment on above: Chronic obstructive pulmonary disease, unspecified COPD type (HCC) (Primary Dx); Essential hypertension; Coronary artery disease involving [place] coronary artery of [place] heart without angina pectoris; Hyperlipidemia, mixed; Moderate recurrent major depression (HCC); Anxiety; Prostate cancer (HCC); Elevated glucose; Encounter for immunization Start: 12-23-2023 End: 12-23-2023 ambulatory TWILA WESTON Facility:[facility] Start: 12-22-2023 End: 12-22-2023 Telephone encounter Mei Cummins MD Work Phone: [facility] Comment on above: Updated Skilled Nurs ing Plan of Care Start: 12-21-2023 End: 12-21-2023 ambulatory BELA MANZANO Facility:[facility] Start: 12-21-2023 End: 12-21-2023 Patient encounter procedure Bela Manzano MD Work Phone: Cardiology Comment on above: Coronary artery dise ase involving [place] coronary artery of [place] heart without angina pectoris (Primary Dx); Essential hypertension; Hyperlipidemia, mixed; PAD (peripheral artery disease) (HCC) Start: 12-15-2023 End: 12-15-2023 Telephone encounter Kailash Cordova IMPROVEMENT COORDINATOR.LEGAL STENOGRAPHER Work Phone: Pulmonary Medicine Comment on above: Patient Update Start: 12-11-2023 End: 12-14-2023 Orders Only Kailash Cordova IMPROVEMENT COORDINATOR.LEGAL STENOGRAPHER Work Phone: Pulmonary Medicine Comment on above: Patient Question (el evated heart rate) Start: 12-08-2023 End: 12-08-2023 ambulatory KAILASH CORDOVA Facility:[facility] Start: 12-08-2023 End: 12-08-2023 ambulatory KAILASH CORDOVA Facility:[facility] Start: 12-08-2023 End: 12-08-2023 Office outpatient visit 25 minutes Kailash Cordova APRN.CNP Work Phone: Pulmonary Medicine Comment on above: Hospital discharge f ollow-up (Primary Dx); Pneumonia of left lung due to infectious organism, unspecified part of lung; Hemoptysis; 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); Chronic hypoxemic respiratory failure (HCC); History of cancer of lower lobe bronchus or lung Start: 12-07-2023 End: 12-07-2023 ambulatory JUAN CARLOS BARBERAarden PharmaceuticalsJOSE Facility:[facility] Start: 12-07-2023 End: 12-07-2023 Patient encounter procedure Juan Carlos Viveros Work Phone: Podiatry Comment on above: Skin ulcer, limited to breakdown of skin (HCC) (Primary Dx); Peripheral arterial disease (HCC) Start: 12-02-2023 End: 12-04-2023 Orders Only Rosalie Martinez PA-C Work Phone: Pulmonary Medicine Comment on above: 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) (Primary Dx); Chronic hypoxemic respiratory failure (HCC) Oxygen Concentrator from [facility] Start: 11-25-2023 End: 11-26-2023 Telephone encounter Tyrell Vigil DO Work Phone: Vascular Surgery Comment on above: Appointment (Vascula r ) Orders for home alf Health Nursing Order Request Start: 11-23-2023 End: 11-23-2023 Subsequent hospital visit by physician [facility] Work Phone: Radiology Comment on above: Skin ulcer, limited to breakdown of skin (HCC) [L98.491] Start: 11-23-2023 End: 11-23-2023 ambulatory JUAN CARLOS BARBERJOSE Facility:[facility] Start: 11-23-2023 End: 11-23-2023 Patient encounter procedure Juan Carlos Viveros Work Phone: Podiatry Comment on above: Skin ulcer, limited to breakdown of skin (HCC) (Primary Dx); Peripheral arterial disease (HCC) Start: 11-22-2023 End: 11-23-2023 Telephone encounter Salazar Meraz DO Work Phone: Hematology/Oncology Comment on above: Results Start: 11-19-2023 End: 11-19-2023 ambulatory MEI CUMMINS Facility:[facility] Start: 11-19-2023 End: 11-19-2023 Patient encounter procedure Andrés Morocho LEGAL STENOGRAPHER Work Phone: [facility] Comment on above: Cellulitis of left a nkle (Primary Dx) Start: 11-16-2023 End: 11-16-2023 Telephone encounter Mei Cummins MD Work Phone: [facility] [place] Comment on above: OT plan of care Start: 11-13-2023 End: 11-13-2023 Orders Only Salazar Meraz DO Work Phone: Hematology/Oncology Comment on above: Squamous carcinoma o f lung, left (HCC) (Primary Dx) Squamous carcinoma o f lung, 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.92] Start: 11-11-2023 End: 11-11-2023 ambulatory [facility] Facility:[facility] Start: 11-11-2023 End: 11-11-2023 ambulatory [facility] Facility:[facility] Start: 11-04-2023 End: 11-04-2023 Telephone encounter [facility]ins MD [facility] Start: 11-03-2023 End: 11-03-2023 Telephone encounter Mei Cummins MD Work Phone: [facility] [place] Comment on above: POC Start: 10-29-2023 End: 10-29-2023 ambulatory MEI CUMMINS Facility:[facility] Start: 10-29-2023 End: 10-29-2023 Patient encounter procedure Mei Cummins MD Work Phone: [facility] Comment on above: Chronic obstructive pulmonary disease, unspecified COPD type (HCC) (Primary Dx); Essential hypertension; Anxiety; Coronary artery disease involving [place] coronary artery of [place] heart without angina pectoris; Squamous carcinoma of lung, left (HCC); Acute and chronic respiratory failure with hypoxia (HCC); Moderate recurrent major depression (HCC); Hospital discharge follow-up Start: 10-29-2023 End: 10-29-2023 Telephone encounter Mei Cummins MD Work Phone: [facility] Comment on above: Orders Start: 10-28-2023 End: 10-29-2023 Refill Bela Manzano MD Work Phone: Pulmonary Medicine Comment on above: Refill Request OT Plan of Care Start: 10-27-2023 End: 10-28-2023 Telephone encounter Mei Cummins MD Work Phone: [facility] Comment on above: Patient Question Start: 10-26-2023 End: 10-26-2023 Telephone encounter Mei Cummins MD Work Phone: [facility] Comment on above: [facility] question Medication Question SW Visit Start: 10-23-2023 End: 10-23-2023 Telephone encounter Mei Cummins MD Work Phone: [facility] Comment on above: [facility] HH-Order Request Start: 10-17-2023 End: 10-25-2023 Evaluation and management of inpatient Josué Thierry Hunt Facility:[facility] Start: 10-16-2023 Refill Salazar Figueroa Work Phone: Hematology/Oncology Comment on above: Refill Request Start: 10-14-2023 ambulatory Etta Edmondson [facility] Start: 10-07-2023 ambulatory [facility] Facility :[facility] Start: 10-06-2023 ambulatory Mei Cummins Facilit y:[facility] Start: 10-05-2023 End: 10-17-2023 Evaluation and management of inpatient Salazar Owens Facility:[facility] Start: 10-05-2023 ambulatory Salazar Owens Facility:[facility] Start: 10-05-2023 Telephone encounter Mei jarquin MD Work Phone: [facility] Comment on above: Patient Update Start: 10-01-2023 Patient Outreach Mei gunter MD Work Phone: [facility] [place] Comment on above: Transition Of Care ( [facility] d/c) Patient Update (Lab work) Patient Update Start: 09-29-2023 ambulatory Elizabeth Santamaria Facility :[facility] Start: 09-28-2023 ambulatory Etta Edmondson Facility:[facility] Start: 09-28-2023 End: 09-30-2023 Evaluation and management of inpatient Elizabeth Santamaria Facility:[facility] Start: 09-25-2023 Telephone encounter Salazar goodrich DO Work Phone: Hematology/Oncology Comment on above: Cough Cough; Chest Congest ion Start: 09-21-2023 End: 09-21-2023 ambulatory MEI CUMMINS Facility:[facility] Start: 09-21-2023 End: 09-21-2023 Patient encounter procedure Mei Cummins MD Work Phone: [facility] [place] Comment on above: Anxiety (Primary Dx) ; Moderate recurrent major depression (HCC); Essential hypertension; Elevated glucose; Hyperlipidemia, mixed; Coronary artery disease involving [place] coronary artery of [place] heart without angina pectoris; PAD (peripheral artery disease) (HCC); Chronic obstructive pulmonary disease, unspecified COPD type (HCC) Start: 09-20-2023 ambulatory Rosalie Mitchell RN NURSE PHYSICIAN OFFICE NURSE Comment on above: Medication Question Start: 09-19-2023 Refill Bela ruiz MD Work Phone: Cardiology Comment on above: Refill Request Start: 09-16-2023 End: 09-16-2023 ambulatory ROSALIE MARTINEZ Facility:[facility] Start: 09-16-2023 End: 09-16-2023 Patient encounter procedure Rosalie Martinez PA-C Work Phone: Pulmonary Medicine Comment on above: 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) (Primary Dx); Chronic hypoxemic respiratory failure (HCC); History of cancer of lower lobe bronchus or lung; Lung nodule; Bronchiectasis without complication (HCC) Start: 09-13-2023 ambulatory Bela ruiz MD Work Phone: Cardiology Comment on above: Need Information Start: 08-24-2023 Telephone encounter Salazar goodrich DO Work Phone: Hematology/Oncology Comment on above: Orders Start: 08-23-2023 Refill Mei gee MD Work Phone: [facility] [place] Comment on above: Refill Request Start: 08-18-2023 End: 08-18-2023 Patient encounter procedure Tyrell Bruno Vigil DO Work Phone: Vascular Surgery Comment on above: Peripheral arterial disease (HCC) (Primary Dx); Abdominal aortic ectasia (HCC) Start: 08-10-2023 Telephone encounter Salazar goodrich DO Work Phone: Hematology/Oncology Comment on above: Results Start: 08-06-2023 Telephone encounter Salazar goodrich DO Work Phone: Hematology/Oncology Comment on above: Opened In Error Start: 07-30-2023 End: 07-30-2023 Subsequent hospital visit by physician Katt [facility] (I-Stat) Work Phone: Cat Scan Comment on above: Squamous carcinoma o f lung, 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.92] Start: 07-28-2023 Telephone encounter Salazar goodrich DO Work Phone: Hematology/Oncology Comment on above: Orders Start: 07-19-2023 Get Medical Advice Ondina Calvillo MD Work Phone: Pulmonary Medicine Comment on above: Prednisone Refill Start: 06-22-2023 End: 06-22-2023 Patient encounter procedure Mei Cummins MD Work Phone: [facility] Comment on above: Anxiety (Primary Dx) ; Moderate recurrent major depression (HCC); Hyperlipidemia, mixed; Essential hypertension; Coronary artery disease involving [place] coronary artery of [place] heart without angina pectoris; PAD (peripheral artery disease) (HCC); Chronic obstructive pulmonary disease with acute exacerbation (HCC); Squamous carcinoma of lung, left (HCC); Prostate cancer (HCC) Start: 06-19-2023 Telephone encounter Salazar goodrich DO Work Phone: Hematology/Oncology Comment on above: Results Start: 06-17-2023 End: 06-17-2023 ambulatory ADI CORTEZ Facility:[facility] Start: 06-12-2023 Telephone encounter Salazar goodrich DO Work Phone: Hematology/Oncology Comment on above: Appointment Squamous cell carcin casimiro of left lung (HCC) (Primary Dx) Radiology Pre Proced ure Instructions (LEFT lung biopsy) Start: 06-09-2023 End: 06-09-[address] Mei Cummins Work Phone: [facility] Work Phone: Start: 06-09-2023 End: 06-09-[address] Mei Cummins Work Phone: [facility]-Cat Scan, [facility] Work Phone: Start: 06-08-2023 End: 06-08-2023 Patient encounter procedure Bela Manzano MD Work Phone: Cardiology Comment on above: Coronary artery dise ase involving [place] coronary artery of [place] heart without angina pectoris (Primary Dx); Essential hypertension; Hyperlipidemia, mixed; Peripheral arterial disease (HCC) Start: 06-03-2023 Refill Jamshid Brown APRN.CNP Work Phone: [facility] Comment on above: Refill Request Start: 05-28-2023 End: 05-28-2023 Emergency department patient visit Dr. Mei Cummins Work Phone: [facility]-Emergency Department Work Phone: Start: 05-26-2023 Telephone encounter Salazar goodrich DO Work Phone: Hematology/Oncology Comment on above: Results Start: 05-24-2023 Refill Mei gee MD Work Phone: [facility] Comment on above: Refill Request Start: 05-21-2023 End: 05-21-2023 Subsequent hospital visit by physician [facility] (I-Stat) Work Phone: Cat Scan Comment on above: Squamous carcinoma o f lung, 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.92] Start: 05-18-2023 End: 05-18-2023 ambulatory Salazar Meraz DO Work Phone: Hematology/Oncology Comment on above: Squamous carcinoma o f lung, left (HCC) (Primary Dx); Chronic pulmonary embolism without acute cor pulmonale, unspecified pulmonary embolism type (HCC) Start: 05-18-2023 End: 05-18-2023 Patient encounter procedure Salazar Meraz DO Work Phone: [place] [facility] Start: 05-18-2023 Telephone encounter Salazar goodrich DO Work Phone: Hematology/Oncology Comment on above: AVS 05/18/23 Start: 05-12-2023 End: 05-12-2023 Patient encounter procedure Rosalie Martinez PA-C Work Phone: Pulmonary Medicine Comment on above: 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) (Primary Dx); Chronic hypoxemic respiratory failure (HCC); Other pulmonary embolism without acute cor pulmonale, unspecified chronicity (HCC); History of cancer of lower lobe bronchus or lung; Hydropneumothorax Start: 04-23-2023 ambulatory Salazar Carr O Work Phone: Hematology/Oncology Comment on above: Biopsy for James patel Start: 04-18-2023 ambulatory Salazar Carr O Work Phone: Hematology/Oncology Comment on above: New Medication Neede d Start: 04-15-2023 Refill Ab Calvillo MD Work Phone: Pulmonary Medicine Comment on above: Refill Request Start: 04-14-2023 End: 04-14-2023 Office outpatient visit 40 minutes Tip Mac APRN.CNP Work Phone: Pulmonary Medicine Comment on above: Hospital discharge f ollow-up (Primary Dx); 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); Chronic hypoxemic respiratory failure (HCC); Other pulmonary embolism without acute cor pulmonale, unspecified chronicity (HCC); Deep vein thrombosis (DVT) of popliteal vein of both lower extremities, unspecified chronicity (HCC); Hemoptysis; History of cancer of lower lobe bronchus or lung Start: 04-08-2023 End: 04-08-2023 ambulatory Salazar Meraz DO Work Phone: Hematology/Oncology Comment on above: Squamous carcinoma o f lung, left (HCC) (Primary Dx); Chronic pulmonary embolism without acute cor pulmonale, unspecified pulmonary embolism type (HCC); Prostate cancer (HCC) Start: 04-08-2023 End: 04-08-2023 Patient encounter procedure Salazar Meraz DO Work Phone: [facility] Start: 04-08-2023 Telephone encounter Salazar goodrich DO Work Phone: Hematology/Oncology Comment on above: Opened In Error Start: 04-03-2023 End: 04-03-2023 Phys/qhp telephone evaluation 11-20 min Oliverio Herrmann MD Work Phone: [facility] Cardiovascular & Thoracic Surgery Comment on above: Lung nodule (Primary Dx) Start: 04-03-2023 End: 04-03-2023 ambulatory OLIVERIO HERRMANN [facility] Start: 03-31-2023 End: 03-31-2023 ambulatory MEI CUMMINS [facility] Start: 03-31-2023 End: 03-31-2023 Office outpatient visit 40 minutes Oliverio Herrmann MD Work Phone: [facility] Cardiovascular & Thoracic Surgery Comment on above: Lung nodule (Primary Dx) Start: 03-27-2023 Non-patient / Non-visit Dr. Migue Cummins Work Phone: [facility] Inpatient Physicians Work Phone: Start: 03-26-2023 Non-patient / Non-visit Dr. Migue Cummins Work Phone: [facility] Start: 03-26-2023 End: 03-27-2023 Evaluation and management of inpatient Dr. Mei Cummins Work Phone: [facility]-Progressive Care Unit Work Phone: Start: 03-26-2023 Non-patient / Non-visit Dr. Migue Cummins Work Phone: [facility] Start: 03-26-2023 Non-patient / Non-visit Dr. Migue Cummins Work Phone: [facility] Inpatient Physicians Work Phone: Start: 03-25-2023 Evaluation and management of inpatient [facility] Care [facility] Work Phone: Start: 03-25-2023 Non-patient / Non-visit Dr. Migue Cummins Work Phone: [facility] Inpatient Physicians Work Phone: Start: 03-25-2023 observation encounter [facility] Work Phone: Start: 03-23-2023 End: 03-23-[address] Mei Cummins Work Phone: [facility] Work Phone: Start: 03-23-2023 End: 03-23-2023 Patient encounter procedure [facility]-Laboratory Work Phone: Start: 03-03-2023 End: 03-03-2023 ambulatory [facility] Work Phone: Start: 03-03-2023 End: 03-03-2023 Patient encounter procedure [facility] Oncology Start: 02-13-2023 Orders Only Salazar Figueroa Work Phone: Hematology/Oncology Comment on above: Malignant neoplasm o f unspecified part of unspecified bronchus or lung (HCC) (Primary Dx) Start: 01-20-2023 End: 01-20-2023 Patient encounter procedure Ab Calvillo MD Work Phone: Pulmonary Medicine Comment on above: Lung nodule (Primary Dx); 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); Chronic hypoxemic respiratory failure (HCC); H/O: lung cancer; Bronchiectasis without complication (HCC); Hydropneumothorax Start: 01-01-2023 Telephone encounter Mei jarquin MD Work Phone: [facility] Comment on above: Forms (To hold Plavi x) Start: 12-19-2022 End: 12-19-2022 Patient encounter procedure Mei Cummins MD Work Phone: [facility] Comment on above: Anxiety (Primary Dx) ; Depression, unspecified depression type; Essential hypertension; Chronic obstructive pulmonary disease, unspecified COPD type (HCC); Squamous carcinoma of lung, left (HCC); Acute and chronic respiratory failure with hypoxia (HCC); Hyperlipidemia, mixed; PAD (peripheral artery disease) (HCC); Elevated glucose; Hypertrophy of prostate with urinary obstruction; Need for influenza vaccination; Need for vaccination Start: 11-24-2022 Refill Jamshid Brown APRN.CNP Work Phone: [facility] Comment on above: Refill Request Start: 11-24-2022 End: 11-24-2022 Emergency department patient visit Dr. Mei Cummins Work Phone: [facility]-Emergency Department Work Phone: Start: 11-18-2022 End: 11-18-2022 Patient encounter procedure Juan Carlos Rajendra Work Phone: Podiatry Comment on above: Posterior tibial ten don dysfunction (Primary Dx) Start: 11-18-2022 End: 11-18-2022 Subsequent hospital visit by physician Ct [facility] Cat Scan Comment on above: Malignant neoplasm o f unspecified part of unspecified bronchus or lung (HCC) [C34.90] Start: 11-16-2022 Refill Mei gee MD Work Phone: [facility] Comment on above: Refill Request Start: 11-07-2022 End: 11-07-2022 ambulatory Pulm Lab [facility] Work Phone: PULM LAB [facility] Comment on above: Spirometry Start: 11-07-2022 End: 11-07-2022 Patient encounter procedure Pulm Lab [facility] Work Phone: [facility] Start: 11-06-2022 ambulatory Ab Calvillo MD Work Phone: Pulmonary Medicine Comment on above: Prednisone Refil Start: 10-23-2022 Telephone encounter Rosalie Martinez PA-C Work Phone: Pulmonary Medicine Comment on above: Orders Start: 10-21-2022 Telephone encounter Mei jarquin MD Work Phone: [facility] Comment on above: Forms (Dasco-RE: Oxy gen) Start: 10-13-2022 End: 10-13-2022 ambulatory Pulm Lab [facility] Work Phone: PULM LAB [facility] Comment on above: Spirometry Start: 10-13-2022 End: 10-13-2022 Patient encounter procedure Pulm Lab [facility] Work Phone: [facility] Comment on above: 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) (Primary Dx); Dependence on continuous supplemental oxygen; History of cancer of lower lobe bronchus or lung; Bronchiectasis without complication (HCC); Hydropneumothorax Start: 09-29-2022 End: 09-29-2022 Patient encounter procedure Bela Manzano MD Work Phone: Cardiology Comment on above: Coronary artery dise ase involving [place] coronary artery of [place] heart without angina pectoris (Primary Dx); Essential hypertension; Hyperlipidemia, mixed; Peripheral arterial disease (HCC) Start: 09-28-2022 Refill Mei gee MD Work Phone: [facility] Comment on above: Refill Request Start: 09-03-2022 End: 09-03-2022 Patient encounter procedure Juan Carlos Viveros Work Phone: Podiatry Comment on above: Skin ulcer of right heel with fat layer 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) (Primary Dx); Peripheral arterial disease (HCC) Start: 08-28-2022 Telephone encounter Mei jarquin MD Work Phone: [facility] Comment on above: Orders; Patient Ques tion Start: 08-26-2022 End: 08-26-2022 Subsequent hospital visit by physician Yaya [facility] Bowser Work Phone: Radiology Comment on above: Skin ulcer of right heel with fat layer 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) [L97.412] Start: 08-20-2022 End: 08-20-2022 Patient encounter procedure Juan Carlos Viveros Work Phone: Podiatry Comment on above: Skin ulcer of right heel with fat layer 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) (Primary Dx) Start: 08-07-2022 End: 08-07-[address] [facility]i Cummins [facility] Work Phone: Start: 08-05-2022 End: 08-05-2022 Patient encounter procedure Tyrell Vigil DO Work Phone: Vascular Surgery Comment on above: Peripheral arterial disease (HCC) (Primary Dx) Start: 07-30-2022 End: 07-30-2022 Patient encounter procedure Juan Carlos Viveros Work Phone: Podiatry Comment on above: Skin ulcer of right heel with fat layer 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) (Primary Dx); Peripheral arterial disease (HCC) Start: 07-29-2022 End: 07-29-2022 Patient encounter procedure Tyrell Vigil DO Work Phone: Vascular Surgery Comment on above: Peripheral arterial disease (HCC) (Primary Dx) Start: 07-08-2022 End: 07-08-2022 Patient encounter procedure Juan Carlos Viveros Work Phone: Podiatry Comment on above: Skin ulcer of right heel with fat layer 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) (Primary Dx); Peripheral arterial disease (HCC) Start: 07-01-2022 End: 07-01-2022 Patient encounter procedure Juan Carlos Viveros Work Phone: Podiatry Comment on above: Skin ulcer of right heel with fat layer 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) (Primary Dx); Peripheral arterial disease (HCC) Start: 06-26-2022 End: 06-26-2022 Patient encounter procedure Mei Cummins MD Work Phone: [facility] Comment on above: Anxiety (Primary Dx) ; Depression, unspecified depression type; Hyperlipidemia, mixed; Essential hypertension; Chronic obstructive pulmonary disease with acute exacerbation (HCC); Coronary artery disease involving [place] coronary artery of [place] heart without angina pectoris; PAD (peripheral artery disease) (HCC); Squamous carcinoma of lung, left (HCC); Status post removal of lung; Acute and chronic respiratory failure with hypoxia (HCC) Start: 06-24-2022 End: 06-24-2022 Patient encounter procedure Juan Carlos Viveros Work Phone: Podiatry Comment on above: Skin ulcer of right heel with fat layer 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) (Primary Dx) Start: 06-19-2022 Telephone encounter Juan Carlos Miranda Work Phone: Podiatry Comment on above: apligraf Start: 06-18-2022 End: 06-18-2022 Patient encounter procedure Juan Carlos Viveros Work Phone: Podiatry Comment on above: Skin ulcer of right heel with fat layer 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) (Primary Dx); Peripheral arterial disease (HCC) Start: 06-10-2022 End: 06-11-2022 Patient encounter procedure Juan Carlos Viveros Work Phone: Podiatry Comment on above: Skin ulcer of right heel with fat layer 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) (Primary Dx) Start: 06-03-2022 End: 06-03-2022 Patient encounter procedure Tyrell Vigil DO Work Phone: Vascular Surgery Comment on above: Peripheral arterial disease (HCC) (Primary Dx) Start: 05-27-2022 End: 05-27-2022 Refill Mei Cummins MD Work Phone: Cardiology Comment on above: Refill Request Skin ulcer of right heel with fat layer 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) (Primary Dx) Skin ulcer of right heel with fat layer 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) [L97.412] Start: 05-20-2022 End: 05-20-2022 Patient encounter procedure Tyrell Vigil DO Work Phone: Vascular Surgery Comment on above: Peripheral arterial disease (HCC) (Primary Dx) Start: 05-13-2022 Evaluation and management of inpatient [facility] Facility:[facility] Start: 05-12-2022 End: 05-12-2022 Patient encounter procedure Bela Manzano MD Work Phone: Cardiology Comment on above: Coronary artery dise ase involving [place] coronary artery of [place] heart without angina pectoris (Primary Dx); Essential hypertension; Hyperlipidemia, mixed; PAD (peripheral artery disease) (HCC); Abdominal aortic aneurysm (AAA) without rupture, unspecified part (HCC); Pre-operative cardiovascular examination Start: 05-12-2022 End: 05-12-2022 Patient encounter status Bela Manzano MD Work Phone: Cardiology Start: 05-01-2022 Orders Only Alex Rivas MD Work Phone: Vascular Surgery Start: 04-30-2022 End: 04-30-2022 Patient encounter procedure Juan Carlos Viveros Work Phone: Podiatry Comment on above: 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, with fat layer 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) (Primary Dx); Peripheral arterial disease (HCC); 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) Start: 04-24-2022 End: 04-24-2022 Patient encounter status [facility] Work Phone: Cardiology Lab Start: 04-24-2022 End: 04-24-2022 Subsequent hospital visit by physician [facility] Work Phone: Cardiology Lab Comment on above: Encounter for prepro cedural cardiovascular examination [Z01.810] Start: 04-16-2022 End: 04-16-2022 Patient encounter procedure Juan Carlos Viveros Work Phone: Podiatry Comment on above: 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, with fat layer 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) (Primary Dx); Peripheral arterial disease (HCC) Start: 04-15-2022 Patient encounter status Alyson Chavis APRN.LEGAL STENOGRAPHER Work Phone: Cardiology Start: 04-15-2022 Telephone encounter Michelle Chavis APRN.LEGAL STENOGRAPHER Work Phone: Cardiology Comment on above: Appointment Start: 04-09-2022 End: 04-09-[address] Mei Cummins Work Phone: [facility] Work Phone: Start: 04-09-2022 End: 04-09-[address] 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) (Primary Dx); 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, with fat layer 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) Start: 04-01-2022 Telephone encounter Bela Manzano MD Work Phone: Cardiology Comment on above: Cardiac Clearance Fo rm Start: 04-01-2022 End: 04-01-2022 Patient encounter procedure Juan Carlos Viveros Work Phone: Podiatry Comment on above: 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, with fat layer 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) (Primary Dx); Peripheral arterial disease (HCC) Start: 03-28-2022 Telephone encounter Alex cuadra MD Work Phone: Vascular Surgery Comment on above: Cardiac Clearance; p ulmonary clearance Start: 03-19-2022 End: 03-19-2022 Subsequent hospital visit by physician Xr [facility] Work Phone: Radiology Comment on above: 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, with fat layer 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) [E11.621, L97.412] Start: 03-19-2022 End: 03-19-2022 Patient encounter procedure Juan Carlos Viveros Work Phone: Podiatry Comment on above: Peripheral arterial disease (HCC) (Primary Dx); 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, with fat layer 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) Start: 03-14-2022 Orders Only Alex Rivas MD Work Phone: Vascular Surgery Comment on above: PAD (peripheral luzmaria ry disease) (HCC) (Primary Dx) Start: 03-05-2022 End: 03-05-2022 Patient encounter procedure Juan Carlos Viveros Work Phone: Podiatry Comment on above: Peripheral arterial disease (HCC) (Primary Dx); 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, with fat layer 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); 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); Pressure injury of right heel, unstageable (HCC) Start: 03-04-2022 End: 03-04-2022 Patient encounter procedure Tyrell Vigil DO Work Phone: Vascular Surgery Comment on above: Peripheral arterial disease (HCC) (Primary Dx) Start: 02-20-2022 ambulatory Tyrell perez DO Work Phone: Vascular Surgery Comment on above: Test Results Start: 02-18-2022 End: 02-18-2022 Subsequent hospital visit by physician Xr [facility] [email or web address] Work Phone: Radiology Comment on above: Peripheral arterial disease (HCC) [I73.9] Start: 02-18-2022 End: 02-18-2022 Patient encounter procedure Juan Carlos Viveros Work Phone: Podiatry Comment on above: Peripheral arterial disease (HCC) (Primary Dx); 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 [facility] Start: 02-04-2022 End: 02-04-2022 Patient encounter procedure Juan Carlos Viveros Work Phone: Podiatry Comment on above: Controlled type 2 di abetes mellitus with ulcer of heel (HCC) (Primary Dx); Peripheral arterial disease (HCC) Start: 01-28-2022 End: 01-28-2022 Subsequent hospital visit by physician Xr [facility] [employer] Work Phone: Radiology Comment on above: Pressure injury of r ight heel, unstageable (HCC) [L89.610] Start: 01-28-2022 End: 01-28-2022 Patient encounter procedure Juan Carlos Viveros Work Phone: Podiatry Comment on above: Pressure injury of r ight heel, unstageable (HCC); Peripheral arterial disease (HCC); Fissure in skin of foot Start: 01-25-2022 End: 01-25-2022 [facility] Start: 01-21-2022 End: 01-21-2022 Patient encounter procedure Tyrell Vigil DO Work Phone: Vascular Surgery Comment on above: Diminished pulses in lower extremity (Primary Dx); Screening for nephropathy; Pressure injury of right heel, unstageable (HCC); Peripheral arterial disease (HCC); Fissure in skin of foot Start: 12-16-2021 End: 12-16-2021 Patient encounter procedure Mei Cummins MD Work Phone: [facility] Comment on above: Chronic obstructive pulmonary disease with acute exacerbation (HCC) (Primary Dx); Anxiety; Essential hypertension; Coronary artery disease involving [place] coronary artery of [place] heart without angina pectoris; Hypertrophy of prostate with urinary obstruction; Hyperlipidemia, mixed; Squamous carcinoma of lung, left (HCC) Start: 12-15-2021 End: 12-15-2021 Emergency department patient visit [facility] Start: 11-25-2021 End: 11-25-2021 Patient encounter procedure Bela Manzano MD Work Phone: Cardiology Comment on above: Coronary artery dise ase involving [place] coronary artery of [place] heart without angina pectoris (Primary Dx); Essential hypertension; Hyperlipidemia, mixed; Abdominal aortic aneurysm (AAA) without rupture (HCC) Start: 11-19-2021 End: 11-19-2021 Refill Mei Cummins MD Work Phone: [facility] Comment on above: Refill Request Malignant neoplasm o f unspecified part of unspecified bronchus or lung (HCC) (Primary Dx) Start: 11-15-2021 End: 11-15-2021 Subsequent hospital visit by physician Katt [facility] ([facility]) Work Phone: Cat Scan Comment on above: Malignant neoplasm o f unspecified part of unspecified bronchus or lung (HCC) [C34.90] Start: 11-13-2021 Telephone encounter Salazar goodrich DO Work Phone: Hematology/Oncology Comment on above: Lab Orders Start: 10-07-2021 End: 10-07-[address] Mei Cummins Work Phone: [facility] Start: 09-04-2021 End: 09-04-2021 Patient encounter procedure Mei Cummins MD Work Phone: [facility] Comment on above: Chronic obstructive pulmonary disease with acute exacerbation (HCC) (Primary Dx); Essential hypertension; Anxiety; Squamous carcinoma of lung, left (HCC); Coronary artery disease involving [place] coronary artery of [place] heart without angina pectoris Start: 09-04-2021 Telephone encounter Bela Manzano MD Work Phone: [facility] Cardiology [place] Comment on above: Cardiac Clearance Start: 08-21-2021 Refill Jamshid Brown APRN.LEGAL STENOGRAPHER Work Phone: [facility] Comment on above: Refill Request Start: 08-07-2021 End: 08-07-[address] Mei Cummins [facility] Start: 07-21-2021 Refill Mei gee MD Work Phone: [facility] Comment on above: Refill Request Start: 07-19-2021 End: 07-19-2021 ambulatory Salazar Meraz DO Work Phone: Hematology/Oncology Comment on above: Malignant neoplasm o f unspecified part of unspecified bronchus or lung (HCC) (Primary Dx); Chronic post-thoracotomy pain Start: 07-19-2021 End: 07-19-2021 Patient encounter procedure Salazar Meraz DO Work Phone: [facility] Start: 07-15-2021 End: 07-15-2021 Subsequent hospital visit by physician Katt [facility] ([facility]) Work Phone: Cat Scan Comment on above: Malignant neoplasm o f unspecified part of unspecified bronchus or lung (HCC) [C34.90] Start: 07-12-2021 Orders Only Salazar Figueroa Work Phone: Hematology/Oncology Comment on above: Cancer of trachea, b ronchus, and lung (HCC) (Primary Dx) Start: 06-04-2021 End: 06-04-2021 Patient encounter procedure Mei Cummins MD Work Phone: [facility] Comment on above: Anxiety (Primary Dx) ; Depression, unspecified depression type; Hypertrophy of prostate with urinary obstruction; Coronary artery disease involving [place] coronary artery of [place] heart without angina pectoris; Essential hypertension; Hyperlipidemia, mixed; Chronic obstructive pulmonary disease with acute exacerbation (HCC); Squamous carcinoma of lung, left (HCC); Rib pain on left side Start: 05-28-2021 Telephone encounter Salazar goodrich DO Work Phone: Hematology/Oncology Comment on above: Refill Request Start: 11-08-2020 Telephone encounter Salazar goodrich DO Work Phone: Hematology/Oncology Comment on above: Results Start: 10-04-2020 End: 10-04-2020 Subsequent hospital visit by physician Yaya [facility] Work Phone: Radiology Comment on above: Rib pain on left hiren e [R07.81] Start: 04-05-2020 End: 04-07-2020 Evaluation and management of inpatient Eva Calebbe Work Phone: [facility] Comment on above: Other pneumothorax ( Primary Dx); Dyspnea on exertion Start: 02-20-2020 End: 03-03-2020 Evaluation and management of inpatient Oliverio Herrmann Work Phone: [facility] Comment on above: Lung nodule (Primary Dx) Start: 02-16-2020 End: 02-16-2020 Subsequent hospital visit by physician Oliverio Herrmann Work Phone: [facility] PET Comment on above: Nodule of left lung Start: 02-16-2020 End: 02-16-2020 Subsequent hospital visit by physician Oliverio Herrmann Work Phone: [facility] Pre-Admit Testing Comment on above: Pulmonary nodule Start: 03-04-2018 Ambulatory [facility] Facility :[facility] Start: 06-26-2017 End: 06-26-2017 Ambulatory ROZ DYE Facility:[facility] Procedures Date Procedure Procedure Detail Performing Clinician Start: 07-13-[address] Mei Cummins MD Work Phone: Start: 07-13-[address] Mei Cummins MD Work Phone: Start: 07-13-2024 End: 07-13-2024 Microbial culture, routine Dr. Mei Cummins MD Work Phone: Start: 06-30-2024 Measurement of fungal antibody Dr. eMi Cummins MD Work Phone: Start: 06-13-2024 Blood count smear mcrscp w/mnl difrntl wbc count Dr. Mei Cummins MD Work Phone: Start: 06-13-2024 Mean corpuscular hemoglobin concentration determination Dr. Mei Cummins MD Work Phone: Start: 06-13-2024 Nucleated red blood cell count procedure Dr. Mei Cummins MD Work Phone: Start: 06-13-2024 Platelet mean volume determination Dr. Justus Cummins MD Work Phone: Start: 06-10-2024 Measurement of occult blood in stool specimen using immunoassay Dr. Tristan Salter DO Work Phone: Start: 06-08-2024 Blood count smear mcrscp w/mnl difrntl wbc count Dr. Mei Cummins MD Work Phone: Start: 06-08-2024 Mean corpuscular hemoglobin concentration determination Dr. Mei Cummins MD Work Phone: Start: 06-08-2024 Nucleated red blood cell count procedure Dr. Mei Cummins MD Work Phone: Start: 06-08-2024 Platelet mean volume determination Dr. Justus Cummins MD Work Phone: Start: 06-08-[address] Tristan Be nder DO Work Phone: Start: 06-08-[address] Tristan Salter DO Work Phone: Start: 06-08-2024 End: 06-08-2024 Microbial culture, routine Dr. Tristan cruz DO Work Phone: Start: 06-05-[address] Mei Cummins MD Work Phone: Start: 06-05-2024 Mean corpuscular hemoglobin concentration determination Dr. Mei Cummins MD Work Phone: Start: 06-05-2024 Platelet mean volume determination Dr. Justus Cummins MD Work Phone: Start: 06-04-[address] Mei Cummins MD Work Phone: Start: 06-04-2024 Blood count smear mcrscp w/mnl difrntl wbc count Dr. Mei Cummins MD Work Phone: Start: 06-04-2024 Nucleated red blood cell count procedure Dr. Mei Cummins MD Work Phone: Start: 06-03-2024 Plain chest X-ray Dr. Mei Cummins MD Work Phone: Start: 06-01-[address] Tristan cameron DO Work Phone: Start: 06-01-[address] Mei Cummins MD Work Phone: Start: 06-01-2024 End: 06-01-2024 Microbial culture, routine Dr. Tristan cruz DO Work Phone: Start: 05-23-2024 Legionella pneumophila antigen assay Dr. Mei Cummins MD Work Phone: Start: 05-23-2024 End: 05-23-2024 Streptococcus pneumoniae antigen assay Dr. Mei Cummins MD Work Phone: Start: 05-23-[address] Mei Cummins MD Work Phone: Start: 05-23-2024 Mean corpuscular hemoglobin concentration determination Dr. Mei Cummins MD Work Phone: Start: 05-23-2024 Platelet mean volume determination Dr. Justus Cummins MD Work Phone: Start: 05-22-[address] Mei Cummins MD Work Phone: Start: 05-22-[address] Mei Cummins MD Work Phone: Start: 05-22-[address] Mei Cummins MD Work Phone: Start: 05-22-2024 SARS-CoV-2, Influenza & RSV (PCR) Dr. Migue Cummins MD Work Phone: Start: 05-22-2024 Dr. Mei Cummisn MD Work Phone: Start: 05-22-2024 CT angiography of chest with contrast Dr. Mei Cummins MD Work Phone: Start: 05-22-2024 X-ray of chest, PA and lateral views Dr. Mei Cummins MD Work Phone: Start: 05-22-2024 Venous oxygen saturation measurement Dr. Mei Cummins MD Work Phone: Start: 05-22-2024 Blood count smear mcrscp w/mnl difrntl wbc count Dr. Mei Cummins MD Work Phone: Start: 05-22-2024 Nucleated red blood cell count procedure Dr. Mei Cummins MD Work Phone: Start: 03-30-[address] Mei Cummins MD Work Phone: Start: 03-30-[address] Mei Cummins MD Work Phone: Start: 03-30-2024 Wound microscopy, culture and sensitivities Dr. Mei Cummins MD Work Phone: Start: 03-30-[address] Mei Cummins MD Work Phone: Start: 03-30-2024 BUN/Creatinine ratio Dr. Mei Cummins MD Work Phone: Start: 03-30-2024 Measurement of renal function Dr. Mei Cummins MD Work Phone: Start: 02-19-2024 X-ray of chest, PA and lateral views Dr. Mei Cummins MD Work Phone: Start: 02-19-[address] Mei Cummins MD Work Phone: Start: 02-19-2024 SARS-CoV-2, Influenza & RSV (PCR) Dr. Migue Cummins MD Work Phone: Start: 12-23-2023 PFIZER-BIONTECH COVID-19 VACCINE AGE 12+ YR (COMIRNATY) Twila Weston APRN.CNP Work Phone: Start: 06-09-2023 Computed tomography of abdomen and pelvis with contrast Dr. Mei Cummins Work Phone: Start: 03-31-2023 Follow-up visit Follow-up OLIVERIO HERRMANN Start: 03-25-2023 CT angiography of chest with contrast Start: 03-03-2023 PET study for localization of tumor Start: 12-19-2022 INFLUENZA VACCINE, PRSV FREE, AGE 65+ YR, HIGH DOSE, QUADRIVALENT (FLUZONE HIGH-DOSE) Mei Cummins MD Work Phone: Start: 12-19-2022 PFIZER-BIONTECH COVID-19 VACCINE ( SEASON) AGE 12+ YR Mei Cummins MD Work Phone: Start: 11-24-2022 CT angiography of chest with contrast Dr. Mei Cummins Work Phone: Start: 11-18-2022 Ct abdomen & pelvis w/contrast material Salazar Meraz DO Work Phone: Start: 11-18-2022 Ct thorax w/contrast material Salazar goodrich DO Work Phone: Start: 11-07-2022 Noninvasive ear/pulse oximetry multiple deter Ab Calvillo MD Work Phone: Start: 10-13-2022 Co diffusing capacity Ab Calvillo MD Work Phone: Start: 08-26-2022 Radex foot complete minimum 3 views Juan Carlos Viveros Work Phone: Start: 05-27-2022 Radex foot complete minimum 3 views Juan Carlos Viveros Work Phone: Start: 04-24-2022 Myocardial spect multiple studies Fish Carr Pete DO Work Phone: Start: 04-24-2022 Echo tthrc r-t 2d w/wom-mode compl spec&colr d Tyrell Carr Pete DO Work Phone: Start: 03-19-2022 Radex foot complete minimum 3 views Juan Carlos Viveros Work Phone: Start: 02-18-2022 Radex foot complete minimum 3 views Juan Carlos Viveros Work Phone: Start: 01-28-2022 Radex foot complete minimum 3 views Juan Carlos Viveros Work Phone: Start: 12-15-2021 Plain chest X-ray Start: 11-18-2021 Adult depression screening assessment Mei Cummins MD Work Phone: Start: 07-15-2021 Ct thorax w/contrast material Salazar goodrich DO Work Phone: Start: 04-26-2021 Adult depression screening assessment Salazar Meraz DO Work Phone: Start: 10-04-2020 Radiologic exam chest 2 views Twila Darling nhof IMPROVEMENT COORDINATOR.LEGAL STENOGRAPHER Work Phone: Start: 04-07-2020 HOME O2 EVAL (DESATURATION SCREEN) Caesar Rutherford Work Phone: Start: 04-07-2020 Radiologic exam chest single view Zahida Parsons Work Phone: Start: 04-07-2020 Basic metabolic panel calcium total Inderpartap S Phang[place] Work Phone: Start: 04-07-2020 Blood count complete auto&auto difrntl wbc [employer] [facility] [place] Work Phone: Start: 04-06-2020 Basic metabolic panel calcium total [employer]der[employer] S [place] Work Phone: Start: 04-06-2020 Blood count complete auto&auto difrntl wbc [employer] [facility] [place] Work Phone: Start: 04-06-2020 Ct angiography chest w/contrast/noncontrast Yina Suki Work Phone: Start: 04-05-2020 Ct thorax w/o contrast material Yina D os Alejandro Work Phone: Start: 04-05-2020 Assay of troponin quantitative Yina Do s Alejandro Work Phone: Start: 04-05-2020 Ecg routine ecg w/least 12 lds w/i&r Yina Suki Work Phone: Start: 03-03-2020 Radiologic exam chest single view Tanmay w Mikhail Dunn Work Phone: Start: 03-03-2020 Radiologic exam chest single view Rodrick Sullivan Work Phone: Start: 03-03-2020 Basic metabolic panel calcium total Rodrick Patelgary Work Phone: Start: 03-03-2020 Blood count complete auto&auto difrntl wbc Rodrick Patelgary Work Phone: Start: 03-02-2020 Radiologic exam chest single view Rodrick Sullivan Work Phone: Start: 03-02-2020 Basic metabolic panel calcium total Rodrick Patelgary Work Phone: Start: 03-02-2020 Blood count complete auto&auto difrntl wbc Rodrick Patelgary Work Phone: Start: 03-01-2020 Radiologic exam chest single view Arturo o Heather Work Phone: Start: 03-01-2020 Radiologic exam chest single view Miann Lola Sullivan Work Phone: Start: 03-01-2020 Basic metabolic panel calcium total Miann Lola Patelashi Work Phone: Start: 03-01-2020 Blood count complete auto&auto difrntl wbc Miann Lola Patelashi Work Phone: Start: 02-29-2020 Radiologic exam chest single view Mazen Lola Patelashi Work Phone: Start: 02-29-2020 Basic metabolic panel calcium total Miann Lola Patelashi Work Phone: Start: 02-29-2020 Blood count complete auto&auto difrntl wbc Miann Lola Patelashi Work Phone: Start: 02-28-2020 Radiologic exam chest single view Miann Lola Sullivan Work Phone: Start: 02-28-2020 Basic metabolic panel calcium total Miann Lola Sullivan Work Phone: Start: 02-28-2020 Blood count complete auto&auto difrntl wbc Miann Lola Sullivan Work Phone: Start: 02-27-2020 Radiologic exam chest single view Mazen Lola Sullivan Work Phone: Start: 02-27-2020 Basic metabolic panel calcium total Miann Lola Sullivan Work Phone: Start: 02-27-2020 Blood count complete auto&auto difrntl wbc Miann Lola Sullivan Work Phone: Start: 02-26-2020 Radiologic exam chest single view Mazen Lola Patelashi Work Phone: Start: 02-26-2020 Basic metabolic panel calcium total Miann Lola Patelashi Work Phone: Start: 02-26-2020 Blood count complete auto&auto difrntl wbc Miann Lola Patelashi Work Phone: Start: 02-26-2020 MANUAL DIFFERENTIAL Miann Lola Patelashi Work Phone: Start: 02-25-2020 Radiologic exam chest single view Mazen Lola Patelashi Work Phone: Start: 02-25-2020 Basic metabolic panel calcium total Rodrick Sullivan Work Phone: Start: 02-25-2020 Blood count complete auto&auto difrntl wbc Rodrick Sullivan Work Phone: Start: 02-24-2020 Radiologic exam chest single view Rodrick Sullivan Work Phone: Start: 02-24-2020 Basic metabolic panel calcium total Rodrick Sullivan Work Phone: Start: 02-24-2020 Blood count complete auto&auto difrntl wbc Rodrick Sullivan Work Phone: Start: 02-23-2020 ADD ON LAB TEST Jone Rinaldi Work Phone: Start: 02-23-2020 Culture bacterial quanttative colony count urine Jone Nimco Work Phone: Start: 02-23-2020 Urnls dip stick/tablet rgnt auto w/o microscopy Jonenannette Rinaldi Work Phone: Start: 02-23-2020 Radiologic exam chest single view Rebecca Alonzo Work Phone: Start: 02-23-2020 Radiologic exam chest single view Rodrick Sullivan Work Phone: Start: 02-23-2020 Basic metabolic panel calcium total Rodrick Sullivan Work Phone: Start: 02-23-2020 Blood count complete auto&auto difrntl wbc Rodrick Sullivan Work Phone: Start: 02-22-2020 Ecg routine ecg w/least 12 lds w/i&r Alethea Pastwesleysa Work Phone: Start: 02-22-2020 ADD ON LAB TEST Alethea Pastwesleysa Work Phone: Start: 02-22-2020 Radiologic exam chest single view Rodrick Sullivan Work Phone: Start: 02-22-2020 Basic metabolic panel calcium total Rodrick Sullivan Work Phone: Start: 02-22-2020 Blood count complete auto&auto difrntl wbc Rodrick Sullivan Work Phone: Start: 02-21-2020 Radiologic exam chest single view Rodrick Sullivan Work Phone: Start: 02-21-2020 Basic metabolic panel calcium total Rodrick Sullivan Work Phone: Start: 02-21-2020 Blood count complete auto&auto difrntl wbc Rodrick Sullivan Work Phone: Start: 02-20-2020 OPERATIVE REPORT 3m Scanning Start: 02-20-2020 Radiologic exam chest single view Rodrick Sullivan Work Phone: Start: 02-20-2020 Level iv surg pathology gross&microscopic exam Oliverio Herrmann Work Phone: Start: 02-16-2020 MRSA BY PCR Ann Aguilera Work Phone: Start: 02-16-2020 BASIC METABOLIC PANEL W/ REFLEX TO MG FOR LOW K Ann Aguilera Work Phone: Start: 02-16-2020 Blood count hemoglobin Ann Aguilera Work Phone: Start: 02-16-2020 Blood typing serologic abo Ann Waldron Work Phone: Start: 02-16-2020 Ecg routine ecg w/least 12 lds w/i&r Ann Aguilera Work Phone: Start: 03-18-2019 History of coronary artery bypass grafting S/P CABG x 3 Salazar Meraz DO Work Phone: Start: 03-18-2019 History of placement of stent for coronary artery disease S/P coronary artery stent placement, status post multiple stent placements Salazar Meraz DO Work Phone: History of coronary artery bypass grafting Hx of CABG Dr. Mei Cummins Work Phone: Comment on above: triple History of coronary artery bypass grafting S/P CABG x 3 Mei Cummins MD Work Phone: History of placement of stent for coronary artery disease S/P coronary artery stent placement, status post multiple stent placements Michelle Chavis APRN.LEGAL STENOGRAPHER Work Phone: SARS-CoV-2 & FLU Antigen (Rapid) Plan of Treatment Date Care Activity Detail Author Start: 06-23-2027 Diabetes Screening Diabetes Screening [facility] Start: 04-26-2027 Diabetes Screening Diabetes Screening [facility] Start: 04-02-2026 Diabetes Screening Diabetes Screening [facility] Start: 06-22-2025 Hepatitis B surface antibody level LDL Cholesterol [facility] Start: 04-26-2025 Hepatitis B surface antibody level LDL Cholesterol [facility] Start: 03-27-2025 End: 03-27-2025 Patient encounter procedure 03/27/2025 1:20 PM EST Office Visit Cardiology [address] [place], [place] [id number] Bela Manzano MD [address] [facility] [address] [place], [place] [id number] 6 month follow up Cardiology Comment on above: 6 month follow up Start: 12-02-2024 End: 12-02-2024 Patient encounter procedure 12/02/2024 1:00 PM EDT Office Visit Pulmonary Medicine [address] [place], [place] [id number] Kailash Cordova APRN.LEGAL STENOGRAPHER [address] [place] [address] 3 MTH F/U Pulmonary Medicine Comment on above: 3 MTH F/U Start: 11-26-2024 DIABETES SCREEN DIABETES SCREEN [facility] Start: 11-15-2024 DIABETES SCREEN DIABETES SCREEN [facility] Start: 10-31-2024 Influenza vaccination Influenza Vacc[facility] Start: 10-04-2024 End: 10-04-2024 Patient encounter procedure 10/04/2024 1:20 PM EDT Office Visit Family Medicine [place] [address] [place] [address] Mei Cummins MD [address] [place] [address] 3 mo f/u Family Medicine [place] Comment on above: 3 mo f/u Start: 09-16-2024 End: 09-16-2024 ambulatory Hematology/Oncology Comment on above: 6MO OV/ CT 09/12* CBC/6MO OV/ CT 09/12* Start: 09-12-2024 End: 09-12-2024 Patient encounter procedure 09/12/2024 1:20 PM EDT Appointment Cat Scan [address] [place] [address] Squamous carcinoma of lung, 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.92] Cat Scan Comment on above: Squamous carcinoma of lung, left (HCC) [ C34.92] Start: 09-09-2024 End: 12-09-2024 Creatinine and Glomerular filtration rate.predicted panel - Serum, Plasma or Blood CREATININE BLD Lab Routine Malignant neoplasm of unspecified part of unspecified bronchus or lung (HCC) Lung nodules Expected: 09/09/2024, Expires: 12/09/2024 [facility] Work Phone: Comment on above: Expected: 09/09/2024, Expires: Start: 09-09-2024 End: 09-09-2024 Patient encounter procedure 09/09/2024 2:00 PM EDT Appointment Cat Scan [address] [place] [address] Squamous carcinoma of lung, 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.92] Cat Scan Comment on above: Squamous carcinoma of lung, left (HCC) [ C34.92] Start: 09-09-2024 End: 09-09-2024 ambulatory 09/09/2024 1:45 PM EDT Results Only [place] [facility] [address] [place] [address] creatinine [facility] Comment on above: creatinine Start: 08-31-2024 End: 08-31-2024 Patient encounter procedure Pulmonary Medicine Comment on above: 3 month follow up Start: 08-01-2024 End: 08-01-2024 Patient encounter procedure Cardiology Comment on above: 7 month follow up Start: 07-27-2024 End: 07-27-2024 ambulatory 07/27/2024 1:00 PM EDT Results Only [place] [facility] [address] [place] [address] CBC/reticulocyte count/iron levels [place] [facility] Comment on above: CBC/reticulocyte count/iron levels Start: 07-21-2024 End: 07-21-2024 Patient encounter procedure 07/21/2024 2:00 PM EDT Appointment Radiology [address] [place] [address] mri outside order is scanned Radiology Comment on above: mri outside order is scanned Start: 07-18-2024 End: 10-17-2024 Ferritin [Mass/volume] in Serum or Plasma [facility] Comment on above: Expected: 07/18/2024, Expires: Start: 07-18-2024 End: 10-17-2024 Iron and Iron binding capacity panel - Serum or Plasma [facility] Work Phone: Comment on above: Expected: 07/18/2024, Expires: Start: 07-18-2024 End: 07-18-2024 ambulatory 07/18/2024 12:45 PM EDT Results Only [place] [facility] [address] [place] [address] CBC/reticulocyte count/iron levels [place] [facility] Comment on above: CBC/reticulocyte count/iron levels Start: 07-15-2024 DIABETES SCREEN DIABETES SCREEN [facility] Start: 07-13-2024 Source specific culture [facility] Start: 07-13-2024 Microbial culture, routine [facility] Start: 07-13-2024 [facility] Start: 07-07-2024 End: 07-07-2024 Patient encounter procedure 07/07/2024 2:30 PM EDT Office Visit Vascular Surgery [address] [address] Betito Mauro MD [address] [place] [phone] 3 MONTH FOLLOW UP Vascular Surgery Comment on above: 3 MONTH FOLLOW UP Start: 07-01-2024 End: 07-01-2024 ambulatory 07/01/2024 3:30 PM EDT Infusion Center Hematology/Oncology [address] [place] [address] 2ND FLOOR Hematology/Oncology Comment on above: 2ND FLOOR Start: 07-01-2024 End: 07-01-2024 Patient encounter procedure Family Medicine [place] Comment on above: 6 month follow up 6 month follow up - recent ED visits with admission Start: 06-30-2024 [facility] Start: 06-29-2024 End: 06-29-2024 ambulatory 06/29/2024 3:30 PM EDT Infusion Center Hematology/Oncology [address] [place] [address] 2ND FLOOR Hematology/Oncology Comment on above: 2ND FLOOR Start: 06-28-2024 End: 06-28-2024 Patient encounter procedure 06/28/2024 2:00 PM EDT Office Visit Family [facility] [place] [address] [place] [address] Mei Cummins MD [address] [address] 6 month follow up Family [facility] [place] Comment on above: 6 month follow up Start: 06-27-2024 End: 06-27-2024 ambulatory 06/27/2024 2:30 PM EDT Infusion Center Hematology/Oncology [address] [place] [address] 2ND FLOOR Hematology/Oncology Comment on above: 2ND FLOOR Start: 06-24-2024 End: 06-24-2024 Patient encounter procedure 06/24/2024 11:30 AM EDT Office Visit Pulmonary Medicine [address] [place] [address] Kailash Cordova APRN.LEGAL STENOGRAPHER [address] [place] [address] [facility] hosp follow up GI bleed and stopping prednisone Pulmonary Medicine Comment on above: [facility] hosp follow up GI bleed and stopping prednisone Start: 06-23-2024 End: 06-23-2024 ambulatory 06/23/2024 1:30 PM EDT [facility] Center Hematology/Oncology [address] [place] [address] [place] [address] 2ND FLOOR Hematology/Oncology Comment on above: 2ND FLOOR Start: 06-22-2024 End: 09-21-2024 Comprehensive metabolic 2000 panel - Serum or Plasma COMPREHENSIVE METABOLIC PANEL Lab Routine Hyperlipidemia, mixed Expected: 06/22/2024, Expires: 09/21/2024 [facility] Comment on above: Expected: 06/22/2024, Expires: Start: 06-22-2024 Covid-19 Vaccine () Covid-19 Vaccine () [facility] Start: 06-22-2024 End: 09-21-2024 Hemoglobin A1c in Blood HEMOGLOBIN A1C Lab Routine Elevated glucose Expected: 06/22/2024, Expires: 09/21/2024 [facility] Work Phone: Comment on above: Expected: 06/22/2024, Expires: Start: 06-22-2024 End: 09-21-2024 Lipid 1996 panel - Serum or Plasma LIPID PANEL BASIC Lab Routine Hyperlipidemia, mixed Expected: 06/22/2024, Expires: 09/21/2024 [facility] Comment on above: Expected: 06/22/2024, Expires: Start: 06-21-2024 Annual PCP Team Chronic Disease Visit Annual PCP Team Chronic Disease Visit [facility] Start: 06-21-2024 BP Controlled (<130/80) BP Controlled (<130/80) [facility] Start: 06-20-2024 End: 06-20-2024 Patient encounter procedure 06/20/2024 1:20 PM EDT Office Visit Cardiology [address] [place] [address] Bela Manzano MD [address] [place] [address] [place] [address] 6 mo follow up Cardiology Comment on above: 6 mo follow up Start: 06-13-2024 End: 06-13-2024 ambulatory 06/13/2024 12:00 PM EDT Results Only [place] [facility] [address] [place] [address] LAB- CBC(?TX)IRON STUDIES/RETIC COUNT [facility] Comment on above: LAB- CBC(?TX)IRON STUDIES/RETIC COUNT Start: 06-10-2024 End: 09-09-2024 CBC W Auto Differential panel - Blood COMPLETE BLOOD COUNT AND DIFFERENTIAL Lab STAT Prostate cancer (HCC) Expected: 06/10/2024, Expires: 09/09/2024 [facility] Work Phone: Comment on above: Expected: 06/10/2024, Expires: Start: 06-10-2024 End: 09-09-2024 Ferritin [Mass/volume] in Serum or Plasma FERRITIN Lab Routine Prostate cancer (HCC) Expected: 06/10/2024, Expires: 09/09/2024 [facility] Comment on above: Expected: 06/10/2024, Expires: Start: 06-10-2024 End: 09-09-2024 Iron and Iron binding capacity panel - Serum or Plasma IRON AND TIBC Lab Routine Prostate cancer (HCC) Expected: 06/10/2024, Expires: 09/09/2024 [facility] Comment on above: Expected: 06/10/2024, Expires: Start: 06-10-2024 End: 09-09-2024 RETICULOCYTE COUNT RETICULOCYTE COUNT Lab Routine Prostate cancer (HCC) Expected: 06/10/2024, Expires: 09/09/2024 [facility] Comment on above: Expected: 06/10/2024, Expires: Start: 06-05-2024 Patient discharge [facility] Start: 06-04-2024 Referral to service [facility] Start: 06-04-2024 Consultation for treatment [facility] Start: 06-03-2024 End: 06-03-2024 Administration of blood product [facility] Start: 06-03-2024 Transfusion of red blood cells [facility] Start: 06-03-2024 Care planning and problem solving actions [facility] Start: 06-03-2024 [facility] Start: 06-03-2024 Following clinical pathway protocol [facility] Start: 06-03-2024 Application of intermittent pneumatic compression device [facility] Start: 06-03-2024 Assessment of risk of venous thromboembolism [facility] Start: 06-03-2024 Insertion of catheter into peripheral vein [facility] Start: 06-03-2024 Oxygen therapy [facility] Start: 06-03-2024 Providing care according to standard [facility] Start: 06-03-2024 Provision of activity privileges [facility] Start: 06-03-2024 Referral to gastroenterology service [facility] Start: 06-03-2024 Referral to occupational therapist [facility] Start: 06-03-2024 Referral to service [facility] Start: 06-03-2024 [facility] Start: 06-03-2024 Admission procedure [facility] Start: 06-03-2024 Inhalation therapy procedure [facility] Start: 06-03-2024 Patient referral to dietitian [facility] Start: 06-01-2024 Anaerobic microbial culture [facility] Start: 06-01-2024 Microbial culture, routine [facility] Start: 06-01-2024 End: 06-01-2024 Patient encounter procedure Pulmonary Medicine Comment on above: 4 month f/u Start: 06-01-2024 [facility] Start: 06-01-2024 Source specific culture [facility] Start: 05-24-2024 Referral to service [facility] Start: 05-24-2024 Patient discharge [facility] Start: 05-22-2024 Following clinical pathway protocol [facility] Start: 05-22-2024 Ambulation without limitation [facility] Start: 05-22-2024 Assessment of risk of venous thromboembolism [facility] Start: 05-22-2024 Inhalation therapy procedure [facility] Start: 05-22-2024 Insertion of catheter into peripheral vein [facility] Start: 05-22-2024 Oxygen therapy [facility] Start: 05-22-2024 Providing care according to standard [facility] Start: 05-22-2024 Referral to occupational therapist [facility] Start: 05-22-2024 Referral to service [facility] Start: 05-22-2024 End: 05-22-2024 [facility] Start: 05-22-2024 Legionella pneumophila Ag [Presence] in Urine [facility] Start: 05-22-2024 Respiratory pathogens DNA and RNA panel - Respiratory specimen by DORYS with probe detection [facility] Start: 05-22-2024 Streptococcus pneumoniae antigen assay [facility] Start: 05-22-2024 Verification routine [facility] Start: 05-22-2024 Hospital admission, emergency, from emergency room, medical nature [facility] Start: 05-22-2024 Admission procedure [facility] Start: 05-22-2024 Bacteria identified in Blood by Culture Blood Culture [facility] Start: 05-22-2024 Blood culture Blood Culture [facility] Start: 05-22-2024 End: 05-22-2024 [facility] Start: 05-22-2024 Patient referral to dietitian [facility] Start: 05-20-2024 End: 05-20-2024 Patient encounter procedure 05/20/2024 2:15 PM EDT Office Visit Pulmonary Medicine [address] [place] [address] Ab Calvillo MD [address] [place] [address] 4 month f/u Pulmonary Medicine Comment on above: 4 month f/u Start: 04-26-2024 End: 04-26-2024 Patient encounter procedure 04/26/2024 1:30 PM EST Office Visit Podiatry [address] [place] [address] Juan Carlos Viveros [address] [address] 2 week follow up Podiatry Comment on above: 2 week follow up Start: 04-23-2024 DIABETES SCREEN DIABETES SCREEN [facility] Start: 04-14-2024 End: 04-14-2024 Patient encounter procedure 04/14/2024 2:30 PM EST Office Visit Vascular Surgery [address] [address] Betito Mauro MD [address] [place] [address] 4 week F/U Vascular Surgery Comment on above: 4 week F/U Start: 04-14-2024 BP Controlled (<130/80) BP Controlled (<130/80) [facility] Start: 04-12-2024 End: 04-12-2024 Patient encounter procedure 04/12/2024 1:30 PM EST Office Visit Podiatry [address] [place] [address] Juan Carlos Viveros [address] [phone] 2 week follow up Podiatry Comment on above: 2 week follow up Start: 04-02-2024 Hepatitis B surface antibody level LDL Cholesterol [facility] Start: 03-29-2024 End: 03-29-2024 Patient encounter procedure 03/29/2024 1:30 PM EST Office Visit Podiatry [address] [place] [address] Juan Carlos Viveros [address] [phone] 2 week follow up Podiatry Comment on above: 2 week follow up Start: 03-23-2024 Annual PCP Team Chronic Disease Visit Annual PCP Team Chronic Disease Visit [facility] Start: 03-23-2024 End: 06-22-2024 Hepatic function 2000 panel - Serum or Plasma HEPATIC FUNCTION PNL Lab Routine Encounter for long-term (current) use of medications Expected: 03/23/2024, Expires: 06/22/2024 [facility] Work Phone: Comment on above: Expected: 03/23/2024, Expires: Start: 03-23-2024 End: 03-23-2024 Patient encounter procedure 03/23/2024 2:00 PM EST Office Visit Pulmonary Medicine [address] [place] [address] Rosalie Martinez, PADaneC [address] [place] [address] 6 MTH F/U Pulmonary Medicine Comment on above: 6 MTH F/U Start: 03-22-2024 End: 06-21-2024 Basic metabolic 2000 panel - Serum or Plasma BASIC METABOLIC PANEL Lab Routine Essential hypertension Expected: 03/22/2024, Expires: 06/21/2024 [facility] Work Phone: Comment on above: Expected: 03/22/2024, Expires: Start: 03-21-2024 End: 03-21-2024 ambulatory 03/21/2024 3:10 PM EST Visit (SP) Office Hematology/Oncology [address] [place] [address] Salazar Meraz, DO [address] [place] [address] 3 MO OV/CT 03/07* Hematology/Oncology Comment on above: 3 MO OV/CT 03/07* Start: 03-15-2024 End: 03-15-2024 Patient encounter procedure 03/15/2024 2:45 PM EST Office Visit Vascular Surgery [address] [place] [address] Tyrell Vigil, DO [address] [place] [address] 6 month follow up Vascular Surgery Comment on above: 6 month follow up Start: 03-15-2024 End: 03-15-2024 Patient encounter procedure 03/15/2024 1:15 PM EST Office Visit Podiatry [address] [place], [place] [phone] Juan Carlos Viveros [address] [address] 2 week follow up Podiatry Comment on above: 2 week follow up Start: 03-14-2024 End: 03-14-2024 Patient encounter procedure 03/14/2024 2:20 PM EST Appointment Cat Scan [address] [place] [address] Squamous carcinoma of lung, 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.92] Cat Scan Comment on above: Squamous carcinoma of lung, left (HCC) [ C34.92] Start: 03-14-2024 End: 03-14-2024 ambulatory 03/14/2024 2:00 PM EST Results [facility] [address] [place] [address] CREATININE(S)* [facility] Comment on above: CREATININE(S)* Start: 03-10-2024 End: 03-10-2024 Patient encounter procedure Vascular Surgery Comment on above: [facility] AND ONE MONTH FOLLOW UP Start: 03-07-2024 End: 02-04-2025 US Lower extremity artery - bilateral PVR ANK/JUARES/TOE MARTITA VAS LAB Vascular Lab Routine Peripheral arterial disease (HCC) Expected: 03/07/2024, Expires: 02/04/2025 [facility] Work Phone: Comment on above: Expected: 03/07/2024, Expires: Start: 03-03-2024 End: 03-03-2024 Patient encounter procedure 03/03/2024 2:30 PM EST Office Visit Podiatry [address] [place] [address] Juan Carlos Viveros [address] [address] 2 week follow up Podiatry Comment on above: 2 week follow up Start: 03-02-2024 Advance Directive Discussion Advance Directive Discussion [facility] Start: 02-23-2024 End: 02-23-2024 Patient encounter procedure 02/23/2024 10:30 AM EST Office Visit Vascular Surgery [address] [place] [address] Tyrell Vigil DO [address] [place] [address] 6 month follow up Vascular Surgery Comment on above: 6 month follow up Start: 02-22-2024 Patient discharge [facility] Start: 02-21-2024 Inhalation therapy procedure [facility] Start: 02-20-2024 Referral to service [facility] Start: 02-19-2024 Following clinical pathway protocol [facility] Start: 02-19-2024 Assessment of risk of venous thromboembolism [facility] Start: 02-19-2024 Fall prevention [facility] Start: 02-19-2024 Insertion of catheter into peripheral vein [facility] Start: 02-19-2024 Introduction of urinary catheter [facility] Start: 02-19-2024 Measuring intake and output [facility] Start: 02-19-2024 Oxygen therapy [facility] [facility]: [facility]24 Physiotherapy of chest [facility] Start: 02-19-2024 Providing care according to standard [facility] Start: 02-19-2024 Provision of activity privileges [facility] Start: 02-19-2024 Referral to occupational therapist [facility] Start: 02-19-2024 Referral to service [facility] Start: 02-19-2024 [facility] Start: 02-19-2024 Admission procedure [facility] Start: 02-19-2024 Consultation [facility] Start: 02-17-2024 End: 02-17-2024 Patient encounter procedure Vasculary Surgery Comment on above: Peripheral arterial disease (HCC) [I73.9 ]; Abdominal aortic ectasia (HCC) [I77.811] Start: 02-16-2024 End: 02-16-2024 Patient encounter procedure 02/16/2024 11:15 AM EST Office Visit Podiatry [address] [place] [address] Juan Carlos Viveros [address] [address] 2 week follow up Podiatry Comment on above: 2 week follow up Start: 02-15-2024 End: 02-15-2024 Patient encounter procedure 02/15/2024 1:40 PM EST Office Visit Cardiology [address] [place] [phone] Bela Manzano MD [address] [place] [address] 6 mo follow up Cardiology Comment on above: 6 mo follow up Start: 02-05-2024 End: 02-05-2024 Patient encounter procedure 02/05/2024 11:30 AM EST Office Visit Vascular Surgery [address] [facility] [address] [place] [address] Betito Mauro MD [address] [place] [address] CT results Vascular Surgery Comment on above: CT results Start: 02-04-2024 End: 02-04-2024 Patient encounter procedure 02/04/2024 12:30 PM EST Office Visit Vasculary Surgery [address] [place], [place] [id number] Skin ulcer, limited to breakdown of skin (HCC) [L98.491] Vasculary Surgery Comment on above: Skin ulcer, limited to breakdown of skin (HCC) [L98.491] Start: 02-03-2024 End: 02-03-2024 Patient encounter procedure Radiology Comment on above: Peripheral vascular disease (HCC) [I73.9 ] NEEDS LABS 20g IV NE EDS PROTOCOL Peripheral vascular disease (HCC) [I73.9] lab ordered & pt not ified 01/28; NEEDS LABS 20g IV NEEDS PROTOCOL Peripheral vascular disease (HCC) [I73.9] Start: 02-02-2024 End: 02-02-2024 Patient encounter procedure Podiatry Comment on above: 2 week follow up ankle ulcer Start: 01-29-2024 End: 04-29-2024 CREATININE BLD CREATININE BLD Lab STAT Peripheral vascular disease, unspecified (HCC) Expected: 01/29/2024, Expires: 04/29/2024 [facility] Work Phone: Comment on above: Expected: 01/29/2024, Expires: Start: 01-22-2024 End: 01-22-2024 Patient encounter procedure 01/22/2024 12:30 PM EST Office Visit Vascular Surgery [address] [address] Betito Mauro MD [address] viveros Vascular Surgery Comment on above: referral from dr. viveros Start: 01-21-2024 End: 01-21-2024 Patient encounter procedure Podiatry Comment on above: 2 week follow up ankle ulcer Start: 01-19-2024 End: 04-19-2024 Bacteria identified in Unspecified specimen by Respiratory culture RESPIRATORY CULTURE AND STAIN Microbiology Routine Expected: 01/19/2024, Expires: 04/19/2024 [facility] Work Phone: Comment on above: Expected: 01/19/2024, Expires: Start: 01-19-2024 End: 01-19-2024 Patient encounter procedure 01/19/2024 1:15 PM EST Office Visit Podiatry [address] [place], [place] [id number] Juan Carlos Viveros [address] [place] [address] 2 week follow up ankle ulcer Podiatry Comment on above: 2 week follow up ankle ulcer Start: 01-12-2024 End: 01-06-2025 CT Chest WO contrast [facility] Work Phone: Comment on above: Expected: 01/12/2024 (Approximate), Expi res: 01/06/2025 Start: 01-12-2024 End: 01-12-2024 Patient encounter procedure 01/12/2024 1:00 PM EST Appointment Cat Scan [address] [place] [address] CT CHEST Cat Scan Comment on above: CT CHEST Start: 01-05-2024 End: 01-05-2024 Patient encounter procedure 01/05/2024 1:00 PM EST Office Visit Podiatry [address] [place] [address] Juan Carlos Viveros [address] [place] [address] 2 week follow up ankle ulcer Podiatry Comment on above: 2 week follow up ankle ulcer Start: 12-24-2023 End: 12-24-2023 Patient encounter procedure 12/24/2023 3:15 PM EDT Office Visit Podiatry [address] [place] [address] Juan Carlos Viveros [address] [place] [address] 2 week follow up ankle ulcer Podiatry Comment on above: 2 week follow up ankle ulcer Start: 12-23-2023 End: 12-23-2023 Patient encounter procedure 12/23/2023 1:40 PM EDT Office Visit Family [facility] [address] [facility] [place] [address] Twila Weston APRN.LEGAL STENOGRAPHER [address] [address] 3 mo f/u - meds Family [facility] Comment on above: 3 mo f/u - meds Start: 12-22-2023 End: 12-22-2023 Patient encounter procedure 12/22/2023 2:00 PM EDT Office Visit Family [facility] [place] [address] [facility] [place] [address] Mei Cummins MD [address] [facility] [place] [address] 3 mo f/u - meds [facility] [place] Comment on above: 3 mo f/u - meds Start: 12-21-2023 End: 12-21-2023 Patient encounter procedure 12/21/2023 1:00 PM EDT Office Visit Cardiology [address] [place] [phone] Bela Manzano MD [address] [address] 6 month follow up Cardiology Comment on above: 6 month follow up Start: 12-20-2023 Annual PCP Team Chronic Disease Visit Annual PCP Team Chronic Disease Visit [facility] Start: 12-10-2023 End: 12-10-2023 Patient encounter procedure 12/10/2023 3:00 PM EDT Office Visit Podiatry [address] [place] [address] Juan Carlos Viveros [address] [place], [place] [address] 2 week follow up ankle ulcer Podiatry Comment on above: 2 week follow up ankle ulcer Start: 12-08-2023 End: 03-08-2024 Bacteria identified in Unspecified specimen by Respiratory culture [facility] Comment on above: Expected: 12/08/2023, Expires: Start: 12-08-2023 End: 12-08-2023 Patient encounter procedure 12/08/2023 1:30 PM EDT Office Visit Pulmonary Medicine [address] [place] [address] Kailash Cordova APRN.LEGAL STENOGRAPHER [address] [facility] [address] [place] [address] 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]; Chronic hypoxemic respiratory failure (HCC) [J96.11]- hospital follow up, patient denying breathing test Pulmonary Medicine Comment on above: Stage 3 severe COPD by GOLD classificati on (HCC) [J44.9]; Chronic hypoxemic respiratory failure (HCC) [J96.11]- hospital follow up, patient denying breathing test Start: 11-23-2023 End: 11-23-2023 Patient encounter procedure 11/23/2023 10:30 AM EDT Office Visit Podiatry [address] [place] [address] Juan Carlos Viveros [address] [place] [address] folllow up ulcer looking bad again Podiatry Comment on above: folllow up ulcer looking bad again Start: 11-13-2023 End: 11-13-2023 Patient encounter procedure 11/13/2023 2:20 PM EDT Appointment Cat Scan [address] [place] [phone] Squamous carcinoma of lung, 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.92]; Lung nodules [R91.8] Cat Scan Comment on above: Squamous carcinoma of lung, left (HCC) [ C34.92]; Lung nodules [R91.8] Start: 11-13-2023 End: 02-12-2024 CREATININE BLD CREATININE BLD Lab Routine Squamous carcinoma of lung, left (HCC) Expected: 11/13/2023, Expires: 02/12/2024 [facility] Work Phone: Comment on above: Expected: 11/13/2023, Expires: Start: 11-13-2023 End: 11-13-2023 ambulatory 11/13/2023 1:45 PM EDT Results Only [place] [facility] [address] [place] [address] [facility] Comment on above: Lab for CT Start: 11-12-2023 Hepatitis B surface antibody level LDL Cholesterol [facility] Start: 11-01-2023 Covid-19 Vaccine ( season) Covid-19 Vaccine () [facility] Start: 11-01-2023 Covid-19 Vaccine () Covid-19 Vaccine () [facility] Start: 11-01-2023 Influenza vaccination Influenza Vaccine (#1) [facility] c Start: 10-29-2023 End: 10-29-2023 Patient encounter procedure 10/29/2023 2:20 PM EDT Office Visit Family [facility] [place] [address] [place] [address] Mei Cummins MD [address] [address] [facility] care unit, resp failure/fall 10/16, discharging on 10/24 Family [facility] [place] Comment on above: [facility] transitional care unit, resp failure /fall 10/16, discharging on 10/24 Start: 10-23-2023 End: 10-23-2023 Patient encounter procedure 10/23/2023 11:20 AM EDT Appointment Cat Scan [address] [place] [address] Squamous carcinoma of lung, 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.92]; Lung nodules [R91.8] Cat Scan Comment on above: Squamous carcinoma of lung, left (HCC) [ C34.92]; Lung nodules [R91.8] Start: 10-23-2023 End: 10-23-2023 ambulatory 10/23/2023 11:00 AM EDT Results Only [place] [facility] [address] [place] [address] CREATININE(S)* [facility] Comment on above: CREATININE(S)* Start: 10-14-2023 End: 10-14-2023 Patient encounter procedure 10/14/2023 3:00 PM EDT Office Visit Pulmonary Medicine [address] [place] [address] Kailash Cordova APRN.LEGAL STENOGRAPHER [address] [facility] [address] [place] [address] ER follow up Pulmonary Medicine Comment on above: ER follow up Start: 10-05-2023 End: 10-05-2023 Patient encounter procedure 10/05/2023 2:00 PM EDT Office Visit [facility] [place] [address] [place] [address] Mei Cummins MD [address] [facility] [place] [id number] WC f/u 09/27-09/29 Hypoxia/COPD/Gi Bleed [facility] [place] Comment on above: [facility] f/u 09/27-09/29 Hypoxia/COPD/Gi Bleed Start: 10-01-2023 End: 05-31-2024 Alanine aminotransferase [Enzymatic activity/volume] in Serum or Plasma ALT/SGPT Lab Routine Hyperlipidemia, mixed Expected: 10/01/2023, Expires: 05/31/2024 [facility] Work Phone: Comment on above: Expected: 10/01/2023, Expires: Start: 10-01-2023 End: 05-31-2024 Lipid 1996 panel - Serum or Plasma LIPID PANEL BASIC Lab Routine Hyperlipidemia, mixed Expected: 10/01/2023, Expires: 05/31/2024 [facility] Work Phone: Comment on above: Expected: 10/01/2023, Expires: Start: 09-30-2023 End: 05-31-2024 Aspartate aminotransferase [Enzymatic activity/volume] in Serum or Plasma AST/SGOT BLD Lab Routine Hyperlipidemia, mixed Expected: 09/30/2023, Expires: 05/31/2024 [facility] Work Phone: Comment on above: Expected: 09/30/2023, Expires: Start: 09-21-2023 End: 09-21-2023 Patient encounter procedure 09/21/2023 1:40 PM EDT Office Visit Family [facility] [place] [address] [place] [address] Mei Cummins MD [address] [facility] [place] [place] [address] 3 month follow up [facility] [place] Comment on above: 3 month follow up Start: 09-20-2023 ANNUAL PCP TEAM CHRONIC DISEASE VISIT ANNUAL PCP TEAM CHRONIC DISEASE VISIT [facility] Start: 09-20-2023 BP CONTROLLED (<130/80) BP CONTROLLED (<130/80) [facility] Start: 09-16-2023 End: 09-16-2023 Patient encounter procedure 09/16/2023 2:00 PM EDT Office Visit Pulmonary Medicine [address] [place] [phone] Rosalie Martinez PA-C [address] [place] [phone] 4 MTH F/U Pulmonary Medicine Comment on above: 4 MTH F/U Start: 09-14-2023 End: 09-14-2023 Patient encounter procedure 09/14/2023 3:40 PM EDT Office Visit Cardiology [address] [place] [phone] Bela Manzano MD [address] [place], [place] [phone] 6 month follow up Cardiology Comment on above: 6 month follow up Start: 08-18-2023 End: 08-18-2023 Patient encounter procedure Vasculary Surgery Comment on above: Peripheral arterial disease (HCC) [I73.9 ] [address] testing Start: 08-06-2023 BP CONTROLLED (<130/80) BP CONTROLLED (<130/80) [facility] Start: 07-30-2023 BP CONTROLLED (<130/80) BP CONTROLLED (<130/80) [facility] Start: 07-30-2023 End: 10-29-2023 CREATININE BLD CREATININE BLD Lab STAT Squamous carcinoma of lung, left (HCC) Expected: 07/30/2023, Expires: 10/29/2023 [facility] Work Phone: Comment on above: Expected: 07/30/2023, Expires: Start: 07-30-2023 End: 07-30-2023 Patient encounter procedure 07/30/2023 11:20 AM EDT Appointment Cat Scan [address] [place] [address] Dx: Squamous carcinoma of lung, 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.92] Cat Scan Comment on above: Dx: Squamous carcinoma of lung, left (HC C) [C34.92] Start: 06-27-2023 ANNUAL PCP TEAM CHRONIC DISEASE VISIT ANNUAL PCP TEAM CHRONIC DISEASE VISIT [facility] Start: 06-25-2023 Hepatitis B surface antibody level LDL CHOLESTEROL [facility] Start: 06-22-2023 End: 09-21-2023 CBC W Auto Differential panel - Blood COMPLETE BLOOD COUNT AND DIFFERENTIAL Lab Routine Squamous cell carcinoma of left lung (HCC) Expected: 06/22/2023, Expires: 09/21/2023 [facility] Work Phone: Comment on above: Expected: 06/22/2023, Expires: 4 Start: 06-22-2023 End: 09-21-2023 PT panel - Platelet poor plasma by Coagulation assay PROTHROMBIN TIME Lab Routine Squamous cell carcinoma of left lung (HCC) Expected: 06/22/2023, Expires: 09/21/2023 [facility] Work Phone: Comment on above: Expected: 06/22/2023, Expires: 4 Start: 05-28-2023 [facility] Start: 05-18-2023 End: 08-17-2023 CREATININE BLD CREATININE BLD Lab STAT Squamous carcinoma of lung, left (HCC) Expected: 05/18/2023, Expires: 08/17/2023 [facility] Work Phone: Comment on above: Expected: 05/18/2023, Expires: 4 Start: 05-01-2023 BP CONTROLLED (<130/80) BP CONTROLLED (<130/80) [facility] Start: 04-21-2023 Covid-19 Vaccine () Covid-19 Vaccine () [facility] Start: 04-03-2023 End: 04-03-2023 Telemedicine consultation with patient 04/03/2023 1:00 PM EST Telemedicine [facility] Cardiovascular & Thoracic Surgery [address] [place] [address] [address] [place] [address] Oliverio Herrmann MD [address] [place] [address], [address] [place] [address] [facility] Medical [facility] Cardiovascular & Thoracic Surgery Start: 03-27-2023 Patient discharge [facility] Start: 03-26-2023 Admission procedure [facility] Start: 03-26-2023 Brain natriuretic peptide measurement [facility] Start: 03-26-2023 Troponin I measurement [facility] Start: 03-25-2023 Following clinical pathway protocol [facility] Start: 03-25-2023 Ambulation without limitation [facility] Start: 03-25-2023 Assessment of risk of venous thromboembolism [facility] Start: 03-25-2023 Cardiac monitoring [facility] Start: 03-25-2023 Incentive spirometry [facility] Start: 03-25-2023 Insertion of catheter into peripheral vein [facility] Start: 03-25-2023 Oxygen therapy [facility] Start: 03-25-2023 Providing care according to standard [facility] Start: 03-25-2023 [facility] Start: 03-25-2023 End: 03-25-2023 Verification routine [facility] Start: 03-25-2023 Admission procedure [facility] Start: 03-25-2023 Hospital admission, emergency, from emergency room, medical nature [facility] Start: 03-25-2023 [facility] Start: 03-25-2023 Inhalation therapy procedure [facility] Start: 03-18-2023 ANNUAL PCP TEAM CHRONIC DISEASE VISIT ANNUAL PCP TEAM CHRONIC DISEASE VISIT [facility] Start: 03-18-2023 BP CONTROLLED (<130/80) BP CONTROLLED (<130/80) [facility] Start: 03-03-2023 PET study for localization of tumor PET/CT Tumor Base -Thigh Subs [facility] Start: 03-03-2023 PT Unspecified body region [facility] Start: 03-02-2023 Advance Directive Discussion Advance Directive Discussion [facility] Start: 03-02-2023 Behavioral Health Screening Behavioral Health Screening [facility] Start: 03-02-2023 Depression Assessment Depression Assessment [facility] Start: 02-16-2023 End: 05-18-2023 Basic metabolic 2000 panel - Serum or Plasma BASIC METABOLIC PNL Lab STAT Malignant neoplasm of unspecified part of unspecified bronchus or lung (HCC) Expected: 02/16/2023, Expires: 05/18/2023 [facility] Work Phone: Comment on above: Expected: 02/16/2023, Expires: 4 Start: 02-16-2023 End: 05-18-2023 CBC W Auto Differential panel - Blood CBC + DIFF Lab STAT Malignant neoplasm of unspecified part of unspecified bronchus or lung (HCC) Expected: 02/16/2023, Expires: 05/18/2023 [facility] Work Phone: Comment on above: Expected: 02/16/2023, Expires: 4 Start: 02-16-2023 End: 05-18-2023 Hepatic function 2000 panel - Serum or Plasma HEPATIC FUNCTION PNL Lab Routine Malignant neoplasm of unspecified part of unspecified bronchus or lung (HCC) Expected: 02/16/2023, Expires: 05/18/2023 [facility] Work Phone: Comment on above: Expected: 02/16/2023, Expires: 4 Start: 12-24-2022 Hemoglobin A1c measurement HbA1C [facility] Start: 12-24-2022 Hemoglobin A1c/Hemoglobin.total in Blood HBA1C [facility] Start: 12-16-2022 ANNUAL PCP TEAM CHRONIC DISEASE VISIT ANNUAL PCP TEAM CHRONIC DISEASE VISIT [facility] Start: 11-26-2022 Hepatitis B surface antibody level LDL CHOLESTEROL [facility] Start: 11-19-2022 BP CONTROLLED (<130/80) BP CONTROLLED (<130/80) [facility] Start: 11-18-2022 Adult depression screening assessment DEPRESSION SCREENING [facility] Start: 10-31-2022 Hemoglobin A1c/Hemoglobin.total in Blood HBA1C [facility] Start: 10-31-2022 Influenza vaccination [facility] Start: 09-29-2022 End: 11-29-2022 Comprehensive metabolic 2000 panel - Serum or Plasma COMP METABOLIC PANEL Lab Routine Coronary artery disease involving [place] coronary artery of [place] heart without angina pectoris Hyperlipidemia, mixed Expected: 09/29/2022, Expires: 11/29/2022 [facility] Work Phone: Comment on above: Expected: 09/29/2022, Expires: 3 Start: 09-29-2022 End: 11-29-2022 Lipid 1996 panel - Serum or Plasma LIPID PANEL BASIC Lab Routine Hyperlipidemia, mixed Expected: 09/29/2022, Expires: 11/29/2022 [facility] Work Phone: Comment on above: Expected: 09/29/2022, Expires: 3 Start: 09-04-2022 ANNUAL PCP TEAM CHRONIC DISEASE VISIT ANNUAL PCP TEAM CHRONIC DISEASE VISIT [facility] Start: 09-04-2022 BP CONTROLLED (<130/80) BP CONTROLLED (<130/80) [facility] Start: 07-19-2022 BP CONTROLLED (<130/80) BP CONTROLLED (<130/80) [facility] Start: 06-04-2022 ANNUAL PCP TEAM CHRONIC DISEASE VISIT ANNUAL PCP TEAM CHRONIC DISEASE VISIT [facility] Start: 04-26-2022 Adult depression screening assessment DEPRESSION SCREENING [facility] Start: 03-21-2022 COVID-19 VACCINE (6 - Pfizer series) COVID-19 VACCINE (6 - Pfizer series) [facility] Start: 03-17-2022 End: 05-17-2022 CREATININE BLD CREATININE BLD Lab STAT Diminished pulses in lower extremity Expected: 03/17/2022 (Approximate), Expires: 05/17/2022 [facility] Work Phone: Comment on above: Expected: 03/17/2022 (Approximate), Expi res: 05/17/2022 Start: 03-06-2022 ANNUAL PCP TEAM CHRONIC DISEASE VISIT ANNUAL PCP TEAM CHRONIC DISEASE VISIT [facility] Start: 03-02-2022 ADVANCE DIRECTIVE DISCUSSION ADVANCE DIRECTIVE DISCUSSION [facility] Start: 03-02-2022 DEPRESSION ASSESSMENT DEPRESSION ASSESSMENT [facility] Start: 01-21-2022 End: 03-23-2022 CREATININE BLD CREATININE BLD Lab Routine Screening for nephropathy Expected: 01/21/2022, Expires: 03/23/2022 [facility] Work Phone: Comment on above: Expected: 01/21/2022, Expires: 3 Start: 12-15-2021 [facility] Work Phone: Start: 11-25-2021 End: 01-25-2022 Alanine aminotransferase [Enzymatic activity/volume] in Serum or Plasma ALT/SGPT Lab Routine Hyperlipidemia, mixed Expected: 11/25/2021, Expires: 01/25/2022 [facility] Work Phone: Comment on above: Expected: 11/25/2021, Expires: 2 Start: 11-25-2021 End: 01-25-2022 Aspartate aminotransferase [Enzymatic activity/volume] in Serum or Plasma AST/SGOT BLD Lab Routine Hyperlipidemia, mixed Expected: 11/25/2021, Expires: 01/25/2022 [facility] Work Phone: Comment on above: Expected: 11/25/2021, Expires: 2 Start: 11-25-2021 End: 01-25-2022 Basic metabolic 2000 panel - Serum or Plasma BASIC METABOLIC PNL Lab Routine Coronary artery disease involving [place] coronary artery of [place] heart without angina pectoris Hyperlipidemia, mixed Expected: 11/25/2021, Expires: 01/25/2022 [facility] Work Phone: Comment on above: Expected: 11/25/2021, Expires: 2 Start: 11-25-2021 End: 01-25-2022 Lipid 1996 panel - Serum or Plasma LIPID PANEL BASIC Lab Routine Hyperlipidemia, mixed Expected: 11/25/2021, Expires: 01/25/2022 [facility] Work Phone: Comment on above: Expected: 11/25/2021, Expires: 2 Start: 11-15-2021 End: 01-15-2022 CBC W Auto Differential panel - Blood CBC + DIFF Lab STAT Malignant neoplasm of unspecified part of unspecified bronchus or lung (HCC) Expected: 11/15/2021, Expires: 01/15/2022 [facility] Work Phone: Comment on above: Expected: 11/15/2021, Expires: 2 Start: 11-15-2021 End: 01-15-2022 Comprehensive metabolic 2000 panel - Serum or Plasma COMP METABOLIC PANEL Lab STAT Malignant neoplasm of unspecified part of unspecified bronchus or lung (HCC) Expected: 11/15/2021, Expires: 01/15/2022 [facility] Work Phone: Comment on above: Expected: 11/15/2021, Expires: 2 Start: 10-31-2021 Influenza vaccination INFLUENZA (#1) [facility] Start: 07-15-2021 End: 09-14-2021 Basic metabolic 2000 panel - Serum or Plasma BASIC METABOLIC PNL Lab STAT Cancer of trachea, bronchus, and lung (HCC) Expected: 07/15/2021, Expires: 09/14/2021 [facility] Work Phone: Comment on above: Expected: 07/15/2021, Expires: 2 Start: 07-15-2021 End: 09-14-2021 CBC W Auto Differential panel - Blood CBC + DIFF Lab STAT Cancer of trachea, bronchus, and lung (HCC) Expected: 07/15/2021, Expires: 09/14/2021 [facility] Work Phone: Comment on above: Expected: 07/15/2021, Expires: 2 Start: 07-15-2021 End: 09-14-2021 HEPATIC FUNCTION PNL HEPATIC FUNCTION PNL Lab Routine Cancer of trachea, bronchus, and lung (HCC) Expected: 07/15/2021, Expires: 09/14/2021 [facility] Work Phone: Comment on above: Expected: 07/15/2021, Expires: 2 Start: 06-07-2021 COVID-19 VACCINE (4 - Booster for Pfizer series) COVID-19 VACCINE (4 - Booster for Pfizer series) [facility] Start: 04-07-2021 Creatinine measurement Creatinine monitoring [facility] [place] [place] Start: 04-07-2021 Potassium monitoring Potassium monitoring [facility] [place] [place] Start: 04-03-2021 COVID-19 VACCINE (4 - Booster for Pfizer series) COVID-19 VACCINE (4 - Booster for Pfizer series) [facility] Start: 03-03-2021 [facility] Start: 03-03-2021 Potassium monitoring Potassium monitoring [place] [facility] [employer] [facility] Start: 03-02-2021 ADVANCE DIRECTIVE DISCUSSION ADVANCE DIRECTIVE DISCUSSION [facility] Start: 03-02-2021 DEPRESSION ASSESSMENT DEPRESSION ASSESSMENT [facility] Start: 02-15-2021 Creatinine measurement [facility]: 02-15-2021 Potassium monitoring Potassium monitoring [facility] Start: 01-31-2021 Hepatitis B surface antibody level LDL CHOLESTEROL [facility] Start: 02-28-2020 Annual Wellness Visit (AWV) Annual Wellness Visit (AWV) [facility] Start: 02-20-2020 Hospital Encounter 02/20/2020 Hospital Encounter General Surgery Oliverio Herrmann MD [address] [place] [address], [address] [place], [place] [id number] [facility] General Surgery Start: 07-04-2018 Hemoglobin A1c/Hemoglobin.total in Blood HBA1C [facility] Start: 07-01-2007 Medicare Annual Wellness Visit Medicare Annual Wellness Visit [facility] Start: 2002 Hepatitis B Vaccine (1 of 3 - Risk 3-dose series) Hepatitis B Vaccine (1 of 3 - Risk 3-dose series) [facility] Start: 2002 RSV Immunization aged 60 or older (1 - 1-dose 60+ series) RSV Immunization aged 60 or older (1 - 1-dose 60+ series) [facility] Start: 2002 RSV Vaccine (1 - 1-dose 60+ series) RSV Vaccine (1 - 1-dose 60+ series) [facility] Start: 1992 Prostate specific antigen measurement PSA counseling [facility] [place] Start: 1992 Shingles Vaccine (1 of 2) Shingles Vaccine (1 of 2) [place], [place] Start: 1992 SHINGRIX VACCINE (1 of 2) SHINGRIX VACCINE (1 of 2) [facility] Start: 1992 Zoster Vaccines (1 of 2) Zoster Vaccines (1 of 2) [facility] Start: 1961 DTaP/Tdap/Td vaccine (1 - Tdap) DTaP/Tdap/Td vaccine (1 - Tdap) [place], [place] Start: 1961 DTaP/Tdap/Td Vaccines (1 - Tdap) DTaP/Tdap/Td Vaccines (1 - Tdap) [facility] Start: 1961 SHINGRIX VACCINE (1 of 2) SHINGRIX VACCINE (1 of 2) [facility] Start: 1961 Urine microalbumin profile [facility] phani Start: 1960 BP CONTROLLED (<130/80) BP CONTROLLED (<130/80) [facility] Start: 1960 HEPATITIS C SCREENING HEPATITIS C SCREENING [facility] Start: 1958 COVID-19 Vaccine (1 of 2) COVID-19 Vaccine (1 of 2) [place], [place] Start: 1954 Depression Screening Depression Screening [facility] Start: 1952 3 comp foot exam completed DIABETIC FOOT EXAM [facility] phani Start: 1952 Diabetic foot examination Diabetic Foot Exam [facility] Start: 1952 Glaucoma screening Dilated Retinal Exam [facility] Start: 1952 Hepatitis B screening URINE ALBUMIN:CREATININE RATIO [facility] Start: 1952 Hepatitis C antibody, confirmatory test DILATED RETINAL EXAM [facility] Start: 1952 Lipid panel Lipid screen [place], [place] Start: 1942 Hepatitis C screening Hepatitis C screen [place], [place] Start: 1942 Lipid panel Lipid Panel [facility] Start: 1942 Medicare Annual Wellness (AWV) Medicare Annual Wellness (AWV) [facility] Anion gap in Serum o r Plasma [facility] Bacteria identified in Unspecified specimen by Anaerobe culture [facility] Bacteria identified in Unspecified specimen by Anaerobe culture [facility] Bacteria identified in Wound by Culture WOUND CULTURE AND GRAM STAIN Microbiology Routine 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 Work Phone: Basic metabolic 2000 panel [place], [place] Comment on above: Daily until discontinued starting 2019, 12 completed Daily until disconti nued starting 04/06/2020, 2 completed BUN/Creatinine ratio [facility] Calcium [Mass/volume ] in Serum or Plasma [facility] Carbon dioxide, tota l [Moles/volume] in Central venous blood [facility] CBC auto differential [place], [place] Comment on above: Daily until discontinued starting 2019, 12 completed Daily until disconti nued starting 04/06/2020, 2 completed Chitobioside IgA Ab [Units/volume] in Serum or Plasma by Immunoassay [facility] End: 02-16-2020 COVID-19 COVID-19 Lab Routine Pulmonary nodule 1 Occurrences starting 02/16/2020 until 02/16/2020 [place], [place] Comment on above: 1 Occurrences starting 02/16/2020 until 02/16/2020 COVID-19 COVID-19 Lab Rou monse Pulmonary nodule 02/16/2020 11:51 AM EST [place] Creatinine [Mass/vol ume] in Serum or Plasma [facility] End: 12-19-2022 Ct abdomen & pelvis w/contrast material CT ABD/PEL W IVCON Radiology Routine Malignant neoplasm of unspecified part of unspecified bronchus or lung (HCC) 1 Occurrences starting 11/19/2021 until 12/19/2022 [facility] Work Phone: Comment on above: 1 Occurrences starting 11/19/2021 until 12/19/2022 End: 06-16-2024 CT Chest W contrast IV CT CHEST W IVCON Radiology Routine Squamous carcinoma of lung, left (HCC) 1 Occurrences starting 05/18/2023 until 06/16/2024 [facility] Work Phone: Comment on above: 1 Occurrences starting 05/18/2023 until 06/16/2024 CT Chest W contrast IV CT CHEST W IVCON Radiology Routine Squamous carcinoma of lung, left (HCC) 05/21/2023 1:32 PM EDT [facility] Work Phone: End: 07-18-2024 CT Chest W contrast IV CT CHEST W IVCON Radiology Routine Squamous carcinoma of lung, left (HCC) 1 Occurrences starting 06/19/2023 until 07/18/2024 [facility] Work Phone: Comment on above: 1 Occurrences starting 06/19/2023 until 07/18/2024 CT Chest W contrast IV CT CHEST W IVCON Radiology Routine Squamous carcinoma of lung, left (HCC) 07/30/2023 11:56 AM EDT [facility] Work Phone: End: 09-22-2024 CT Chest W contrast IV CT CHEST W IVCON Radiology Routine Squamous carcinoma of lung, left (HCC) Lung nodules 1 Occurrences starting 08/24/2023 until 09/22/2024 [facility] Work Phone: Comment on above: 1 Occurrences starting 08/24/2023 until 09/22/2024 CT Chest W contrast IV CT CHEST W IVCON Radiology Routine Squamous carcinoma of lung, left (HCC) Lung nodules 11/13/2023 3:25 PM EDT [facility] Work Phone: End: 12-21-2024 CT Chest W contrast IV CT CHEST W IVCON Radiology Routine Squamous carcinoma of lung, left (HCC) 1 Occurrences starting 11/22/2023 until 12/21/2024 [facility] Work Phone: Comment on above: 1 Occurrences starting 11/22/2023 until 12/21/2024 CT Chest W contrast IV CT CHEST W IVCON Radiology Routine Squamous carcinoma of lung, left (HCC) 03/14/2024 2:[address] [facility] Work Phone: End: 04-20-2025 CT Chest W contrast IV CT CHEST W IVCON Radiology Routine Squamous carcinoma of lung, left (HCC) 1 Occurrences starting 03/21/2024 until 04/20/2025 [facility] Work Phone: Comment on above: 1 Occurrences starting 03/21/2024 until 04/20/2025 CT Chest W contrast IV CT CHEST W IVCON Radiology Routine Squamous carcinoma of lung, left (HCC) 09/09/2024 2:57 PM [facility] Work Phone: End: 11-15-2021 CT CHEST W IVCON [facility] Work Phone: Comment on above: 1 Occurrences starting 11/15/2021 until 11/15/2021 End: 12-19-2022 CT CHEST W IVCON CT CHEST W IVCON Radiology Routine Malignant neoplasm of unspecified part of unspecified bronchus or lung (HCC) 1 Occurrences starting 11/19/2021 until 12/19/2022 [facility] Work Phone: Comment on above: 1 Occurrences starting 11/19/2021 until 12/19/2022 End: 08-18-2022 Ct thorax w/contrast material CT CHEST W IVCON Radiology Routine Malignant neoplasm of unspecified part of unspecified bronchus or lung (HCC) 1 Occurrences starting 07/19/2021 until 08/18/2022 [facility] Work Phone: Comment on above: 1 Occurrences starting 07/19/2021 until 08/18/2022 End: 02-20-2023 Cta abdl aorta&bi iliofem w/contrast&postp CTA ABD/PEL LOWER EXTREM W IVCON Radiology Routine Diminished pulses in lower extremity 1 Occurrences starting 01/21/2022 until 02/20/2023 [facility] Work Phone: Comment on above: 1 Occurrences starting 01/21/2022 until 02/20/2023 End: 02-03-2025 CTA Abdominal, Pelvis and Lower extremity vessels W contrast IV CTA ABD/PEL LOWER EXTREM W IVCON Radiology Routine Peripheral vascular disease (HCC) 1 Occurrences starting 01/05/2024 until 02/03/2025 [facility] Work Phone: Comment on above: 1 Occurrences starting 01/05/2024 until 02/03/2025 CTA Abdominal, Pelvi s and Lower extremity vessels W contrast IV CTA ABD/PEL LOWER EXTREM W IVCON Radiology Routine Peripheral vascular disease (HCC) 02/03/2024 2:52 PM EST [facility] Work Phone: End: 09-24-2023 ECG COMPLETE ECG COMPLETE ECG Routine Coronary artery disease involving [place] coronary artery of [place] heart without angina pectoris Essential hypertension Hyperlipidemia, mixed 1 Occurrences starting 09/23/2022 until 09/24/2023 [facility] Work Phone: Comment on above: 1 Occurrences starting 09/23/2022 until 09/24/2023 EKG 12 Lead EKG 12 Lead ECG Routine 02/16/2020 12:25 PM EST [facility] Erythrocyte mean corpuscular volume determination [facility] Glucose [Mass/volume ] in Serum or Plasma [facility] Guidance for biopsy of Lung IMAGING GUIDED BIOPSY LUNG Radiology Routine Squamous carcinoma of lung, left (HCC) Ordered: 05/26/2023 [facility] Work Phone: Comment on above: Ordered: 05/26/2023 Hematocrit [Volume Fraction] of Blood [facility] Hemoglobin [Mass/vol ume] in Blood [facility] End: 03-02-2020 Home O2 eval (desaturation screen) Home O2 eval (desaturation screen) Respiratory Care Routine One Time for 1 Occurrences starting 03/02/2020 until 03/02/2020 [facility] Comment on above: One Time for 1 Occurrences starting 03/2020 until 03/02/2020 End: 04-06-2020 Intermittent pulse oximetry Pulse Oximetry Spot Check Respiratory Care Routine One Time for 1 Occurrences starting 04/06/2020 until 04/06/2020 [facility] Comment on above: One Time for 1 Occurrences starting 06/2020 until 04/06/2020 Laminaribioside IgG Ab [Units/volume] in Serum or Plasma by Immunoassay [facility] Leukocytes [#/volume ] in Blood [facility] Mannobioside IgG Ab [Units/volume] in Serum or Plasma by Immunoassay [facility] MDI Treatment MDI Treatment Respiratory Care Routine (respiratory use only) until discontinued starting 04/06/2020 [facility] Comment on above: (respiratory use only) until d iscontinued starting 04/06/2020 Mean corpuscular hemoglobin concentration determination [facility] Mean corpuscular hemoglobin determination [facility] Measurement of funga l antibody [facility] Measurement of renal function [facility] Measurement of respi ratory function [facility] on above: 0600, 1000, 1400, 1800, 2200 until disco ntinued starting 02/20/2020 Every 4hr while awak e until discontinued starting 04/06/[address] [facility] Neutrophil cytoplasm ic Ab.perinuclear.atypical [Titer] in Serum by Immunofluorescence [facility] Neutrophil percent differential count [facility] End: 12-31-2024 OXIMETRY WITH AMBULATION OXIMETRY WITH AMBULATION PFT Routine 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) Chronic hypoxemic respiratory failure (HCC) 1 Occurrences starting 12/02/2023 until 12/31/2024 [facility] Work Phone: Comment on above: 1 Occurrences starting 12/02/2023 until 12/31/2024 Oxygen therapy [[facility] Data Set] Initiate Oxygen Therapy Protocol Respiratory Care Routine Daily until discontinued starting 02/20/2020 [facility] Comment on above: Daily until discontinued starting 2019 Patient Education [facility] Work Phone: Patient referral [facility] Work Phone: End: 02-16-[address] SKULL BASE TO MID THIGH PET CT SKULL BASE TO MID THIGH Imaging Routine Nodule of left lung 1 Occurrences starting 02/16/2020 until 02/16/2020 [facility] Comment on above: 1 Occurrences starting 02/16/2020 until 02/16/[address] SKULL BASE TO MID THIGH PET CT SKULL BASE TO MID THIGH Imaging Routine Nodule of left lung 02/16/2020 1:38 PM EST [facility] Platelets [#/volume] in Blood [facility] Potassium measurement [facility] End: 07-30-2023 PVR ANK PRESS [facility] PVR ANK PRESS [facility] Vascular Lab Routine Peripheral arterial disease (HCC) 1 Occurrences starting 07/29/2022 until 07/30/2023 [facility] Work Phone: Comment on above: 1 Occurrences starting 07/29/2022 until 07/30/2023 Red blood cell count [facility] Red cell distributio n width determination [facility] RT Communication Order RT Commun ication Order Respiratory Care Routine Daily until discontinued starting 02/20/2020 [facility] [employer] Comment on above: Daily until discontinued starting 2019 Serum chloride measurement [facility] Sodium measurement [facility] Spirometry panel Incentive lexus metry RT Respiratory Care Routine Every 2hr while awake until discontinued starting 04/06/2020 [facility] [place] [place] Comment on above: Every 2hr while awake until discontinued starting 04/06/2020 Urea nitrogen [Mass/volume] in Serum or Plasma [facility] End: 08-17-2024 US Abdominal Aorta US ABD AORTA COMPLETE [facility] Vascular Lab Routine Peripheral arterial disease (HCC) Abdominal aortic ectasia (HCC) 1 Occurrences starting 08/18/2023 until 08/17/2024 [facility] Work Phone: Comment on above: 1 Occurrences starting 08/18/2023 until 08/17/2024 End: 07-30-2023 US LEG ARTERIAL PERIPH UNL [facility] US LEG ARTERIAL PERIPH UNL [facility] Vascular Lab Routine Peripheral arterial disease (HCC) 1 Occurrences starting 07/29/2022 until 07/30/2023 [facility] Work Phone: Comment on above: 1 Occurrences starting 07/29/2022 until 07/30/2023 End: 08-17-2024 US Lower extremity artery - bilateral PVR ANK/JUARES/TOE [facility] V[facility] Lab Routine Peripheral arterial disease (HCC) 1 Occurrences starting 08/18/2023 until 08/17/2024 [facility] Comment on above: 1 Occurrences starting 08/18/2023 until 08/17/2024 End: 01-04-2025 US Vein - bilateral US VENOUS INCOMPETENCY [facility] Lab Routine Skin ulcer, limited to breakdown of skin (HCC) Peripheral arterial disease (HCC) Venous insufficiency 1 Occurrences starting 01/05/2024 until 01/04/2025 [facility] Comment on above: 1 Occurrences starting 01/05/2024 until 01/04/2025 XR Ankle - left AP a nd Lateral and oblique XR ANKLE GENERAL 3V AP/LAT/OBL LEFT Radiology Routine Skin ulcer, limited to breakdown of skin (HCC) 11/23/2023 11:37 AM EDT [facility] Work Phone: End: 12-22-2024 XR Ankle - left AP and Lateral and oblique XR ANKLE GENERAL 3V AP/LAT/OBL LEFT Radiology Routine Skin ulcer, limited to breakdown of skin (HCC) 1 Occurrences starting 11/23/2023 until 12/22/2024 [facility] Work Phone: Comment on above: 1 Occurrences starting 11/23/2023 until 12/22/2024 End: 02-03-2025 XR Ankle - left AP and Lateral and oblique XR ANKLE GENERAL 3V AP/LAT/OBL LEFT Radiology Routine Skin ulcer, limited to breakdown of skin (HCC) Peripheral arterial disease (HCC) Venous insufficiency 1 Occurrences starting 01/05/2024 until 02/03/2025 [facility] Work Phone: Comment on above: 1 Occurrences starting 01/05/2024 until 02/03/2025 XR Ankle - left AP a nd Lateral and oblique XR ANKLE GENERAL 3V AP/LAT/OBL LEFT Radiology Routine Skin ulcer, limited to breakdown of skin (HCC) Peripheral arterial disease (HCC) Venous insufficiency 01/05/2024 2:04 PM [facility] XR CHEST PORTABLE XR CHEST MYRNA BLE Imaging Routine Daily until discontinued starting 02/21/2020, 12 completed [place], [place] Comment on above: Daily until discontinued starting 2019, 12 completed End: 02-27-2023 XR FOOT GENERAL 3V AP/LAT/OBL RIGHT XR FOOT GENERAL 3V AP/LAT/OBL RIGHT Radiology Routine Pressure injury of right heel, unstageable (HCC) 1 Occurrences starting 01/28/2022 until 02/27/2023 [facility] Work Phone: Comment on above: 1 Occurrences starting 01/28/2022 until 02/27/2023 XR FOOT GENERAL 3V AP/LAT/OBL RIGHT XR FOOT GENERAL 3V AP/LAT/OBL RIGHT Radiology Routine Pressure injury of right heel, unstageable (HCC) 01/28/2022 4:14 PM EST 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 Work Phone: Comment on above: 1 Occurrences starting 04/16/2022 until 05/16/2023 End: 06-26-2023 XR FOOT GENERAL 3V AP/LAT/OBL RIGHT XR FOOT GENERAL 3V AP/LAT/OBL RIGHT Radiology Routine Skin ulcer of right heel with fat layer 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) 1 Occurrences starting 05/27/2022 until 06/26/2023 [facility] Work Phone: Comment on above: 1 Occurrences starting 05/27/2022 until 06/26/2023 XR FOOT GENERAL 3V AP/LAT/OBL RIGHT XR FOOT GENERAL 3V AP/LAT/OBL RIGHT Radiology Routine Skin ulcer of right heel with fat layer 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) 05/27/2022 3:04 PM [facility] Work Phone: [facility] Immunizations Immunization Date Immunization Notes Care Provider Mukund harmon 12-23-2023 COVID-19 vaccine, ag e 12+ yr (PFIZER-BIONTECH COMIRNATY) Twila Weston IMPROVEMENT COORDINATOR.LEGAL STENOGRAPHER Work Phone: [facility] 12-23-2023 influenza, high dose seasonal, preservative-free Twila Weston IMPROVEMENT COORDINATOR.LEGAL STENOGRAPHER Work Phone: [facility] 12-23-2023 influenza virus vacc ine, unspecified formulation Kailash Cordova IMPROVEMENT COORDINATOR.LEGAL STENOGRAPHER Work Phone: [facility] 01-30-2023 respiratory syncytia l virus (RSV) vaccine, bivalent (ABRYSVO) Rosalie Martinez PA-C Work Phone: [facility] 12-19-2022 COVID-19 vaccine, ag e 12+ yr, 2023-24 season (PFIZER-BIONTECH) Mei Cummins MD Work Phone: [facility] 12-19-2022 influenza (HD-IIV4) vaccine, age 65+ yr, high dose, quadrivalent, PF (FLUZONE HIGH-DOSE) Mei Cummins MD Work Phone: [facility] 12-19-2022 influenza virus vacc ine, unspecified formulation Bela Manzano MD Work Phone: [facility] 11-27-2021 Covid Pfizer Bivalen t Booster Dr. Mei Cummins MD Work Phone: [facility] 11-27-2021 Influenza High-Dose Quadrivalent Dr. Mei Cummins MD Work Phone: [facility] 11-27-2021 influenza virus vacc ine, unspecified formulation Mei Cummins MD Work Phone: [facility] 11-19-2021 COVID-19 booster vaccine, age 12+ yr, bivalent (PFIZER-BIONTECH) Juan Carlos Viveros Work Phone: [facility] 11-19-2021 Influenza, high dose seasonal Dr. Mei Cummins MD Work Phone: [facility] 11-19-2021 influenza, high dose seasonal, preservative-free Juan Carlos Viveros Work Phone: [facility] 07-26-2021 Covid (Pfizer) Dr. Mei conteh MD Work Phone: [facility] 02-06-2021 COVID-19 vaccine, ag e 12+ yr (PFIZER-BIONTECH - PURPLE TOP) Salazar Meraz DO Work Phone: [facility] 11-29-2020 influenza, high-dose , quadrivalent vaccine (FLUZONE HIGH DOSE QUADRIVALENT) Salazar Meraz DO Work Phone: [facility] 05-24-2020 COVID-19 vaccine, ag e 12+ yr (PFIZER-BIONTECH - PURPLE TOP) Salazar Meraz DO Work Phone: [facility] 05-03-2020 COVID-19 vaccine, ag e 12+ yr (PFIZER-BIONTECH - PURPLE TOP) Salazar Robbinsi DO Work Phone: [facility] 12-03-2019 Influenza, high dose seasonal Dr. Mei Cummins MD Work Phone: [facility] 12-03-2019 influenza, high dose seasonal, preservative-free Dr. Mei Cummins MD Work Phone: [facility] 12-08-2018 Influenza, high dose seasonal Dr. Mei Cummins MD Work Phone: [facility] 12-08-2018 influenza, high dose seasonal, preservative-free Salazar Meraz DO Work Phone: [facility] 11-10-2017 Influenza, high dose seasonal Dr. Mei Cummins MD Work Phone: [facility] 11-10-2017 influenza, high dose seasonal, preservative-free Salazar Lizzy DO Work Phone: [facility] 11-25-2016 Influenza, high dose seasonal Dr. Mei Cummins MD Work Phone: [facility] 11-25-2016 influenza, high dose seasonal, preservative-free Salazar Meraz DO Work Phone: [facility] 11-25-2016 pneumococcal conjuga te vaccine, 13 valent Salazar Meraz DO Work Phone: [facility] 10-31-2016 influenza, injectabl e, quadrivalent, preservative free Dr. Mei Cummins Work Phone: [facility] 10-31-2016 influenza, seasonal, injectable Dr. Mei Cummins Work Phone: [facility] 12-19-2015 influenza, injectabl e, quadrivalent, preservative free Dr. Mei Cummins MD Work Phone: [facility] 12-19-2015 influenza, seasonal, injectable Salazar Meraz DO Work Phone: [facility] Work Phone: 11-16-2015 pneumococcal polysaccharide vaccine, 23 valent Salazar Robbinsi DO Work Phone: [facility] Work Phone: Payers Date Payer Category Payer Self-pay [id number] 2023 Unknown [id number] 2016 [facility] ANTHEM ME DICARE SUPPLEMENT [id number] 2016 Unknown ANTHEM ANTHEM ME DICARE SUPPLEMENT [id number] 2016-Present [phone] [address] [place] [address] Indemnity [id number] 2016 Unknown [id number]. 1.13.159. 2.7.3.381541.315 2016 Unknown [id number] 1.2.840.757888.1.13.239. 2.7.3.660814.315 2007 Medicare MEDICARE MEDICAR E A AND B [id number] 2007-Present [phone] [place] [address] Medicare [id number] 1.2.840.066018.1.13.159. 2.7.3.912347.315 2007 Medicare 1.2.840.681374. 1.13.159. 2.7.3.524548.315 2007 Medicare [id number] 1.2.840.318408.1.13.239. 2.7.3.840949.315 Medicare [id number] Unknown [id number] 2.16.840.1.675138.3.579. 2.462 Unknown [id number] 2.16.840.1.625478.3.579. 2.462 Unknown [id number] 2.16.840.1.620692.3.579. 2.462 Unknown [id number] 2.16.840.1.411064.3.579. 2.462 Unknown [id number] 2.16.840.1.815728.3.579. 2.462 Unknown [id number] 2.16.840.1.715872.3.579. 2.462 Unknown [id number] 2.16.840.1.138712.3.579. 2.462 Unknown [id number] 2.16.840.1.640926.3.579. 2.462 Unknown [id number] 2.16.840.1.220483.3.579. 2.462 Unknown [id number] 2.16.840.1.052335.3.579. 2.462 Unknown [id number] 2.16.840.1.158650.3.579. 2.462 Unknown [id number] 2.16.840.1.738359.3.579. 2.462 Unknown [id number] 2.16.840.1.202299.3.579. 2.462 Unknown [id number] 2.16.840.1.854329.3.579. 2.462 Unknown [id number] 2.16.840.1.969864.3.579. 2.462 Unknown [id number] 2.16.840.1.279555.3.579. 2.462 Unknown [id number] 2.16.840.1.134778.3.579. 2.462 Unknown [id number] 2.16.840.1.631755.3.579. 2.462 Unknown [id number] 2.16.840.1.099106.3.579. 2.462 Unknown [id number] 2.16.840.1.575614.3.579. 2.462 Unknown [id number] 2.16.840.1.036268.3.579. 2.462 Unknown [id number] 2.16.840.1.077383.3.579. 2.462 Unknown [id number] 2.840.1.038150.3.579. 2.462 Unknown [id number] 2.16.840.1.004321.3.579. 2.462 Unknown [id number] 2.16840.1.429727.3.579. 2.462 Unknown [id number] 2.16840.1.863071.3.579. 2.462 Unknown [id number] 2.16.840.1.080585.3.579. 2.462 Unknown [id number] 2.16.840.1.475179.3.579. 2.462 Unknown [id number] 2.16840.1.610625.3.579. 2.462 Unknown [id number] 2.16840.1.777802.3.579. 2.462 Unknown [id number] 2.16.840.1.538748.3.579. 2.462 Unknown [id number] 2.16.840.1.132013.3.579. 2.462 Unknown [id number] 2.16.840.1.511351.3.579. 2.462 Unknown [id number] 2.16.840.1.804329.3.579. 2.462 Unknown [id number] 2.16.840.1.890098.3.579. 2.462 Unknown [id number] 2.840.1.026434.3.579. 2.462 Unknown [id number] 2.840.1.391467.3.579. 2.462 Unknown [id number] 2.840.1.779307.3.579. 2.462 Unknown [id number] 2.840.1.383972.3.579. 2.462 Unknown [id number] 2.840.1.900872.3.579. 2.462 Unknown [id number] .840.1.089226.3.579. 2.462 Unknown [id number] 2.840.1.376582.3.579. 2.462 Unknown [id number] 2.840.1.795203.3.579. 2.462 Unknown [id number] 2.840.1.725740.3.579. 2.462 Unknown [id number] 2.840.1.146202.3.579. 2.462 Unknown [id number] .840.1.014765.3.579. 2.462 Unknown [id number] .840.1.888631.3.579. 2.462 Unknown [id number] .840.1.451025.3.579. 2.462 Unknown [id number] .840.1.682987.3.579. 2.462 Unknown [id number] .840.1.137227.3.579. 2.462 Unknown [id number] 2.840.1.728230.3.579. 2.462 Unknown [id number] 2.840.1.001990.3.579. 2.462 Unknown [id number] 2.840.1.895224.3.579. 2.462 Unknown [id number] 2.16.840.1.044160.3.579. 2.462 Unknown [id number] 2.16.840.1.880674.3.579. 2.462 Unknown [id number] 2.16.840.1.589538.3.579. 2.462 Unknown [id number] 2.16.840.1.195214.3.579. 2.462 Unknown [id number] 2.16.840.1.544156.3.579. 2.462 Unknown [id number] 2.16.840.1.163624.3.579. 2.462 Unknown [id number] 2.16.840.1.951856.3.579. 2.462 Unknown [id number] 2.16.840.1.248596.3.579. 2.462 Unknown [id number] 2.16.840.1.141115.3.579. 2.462 Unknown [id number] 2.16.840.1.951972.3.579. 2.462 Unknown [id number] 2.16.840.1.205963.3.579. 2.462 Unknown [id number] 2.16.840.1.810057.3.579. 2.462 Unknown [id number] 2.16.840.1.464893.3.579. 2.462 Unknown [id number] 2.16.840.1.429601.3.579. 2.462 Social History Date Type Detail Facility Start: 02-16-2020 End: 10-29-2023 Tobacco smoking status COIS Former smoker [facility] Work Phone: Start: 03-02-1962 End: 05-13-2002 History of tobacco use Current smoker [place], [place] Start: 02-16-2020 End: 10-29-2023 Tobacco use and exposure Never used [facility] [place] Start: 02-16-2020 End: 10-04-2020 Alcohol intake Current drinker of alcohol (finding) [place], [place] Start: 10-26-2019 End: 02-09-2020 [facility] SD[facility] Start: 02-16-2020 Alcohol Comment 3 beers a [facility] Start: 1940 Sex Assigned At Not on file [facility] Start: 09-03-2020 End: 01-28-2022 Exposure to SARS-CoV-2 (event) [facility] sure [facility] Start: [facility]1962 End: 05-13-2002 History of tobacco use Cigarette Smoker [facility] Work Phone: Start: 04-29-2021 End: 08-31-2024 Alcohol intake Ex-drinker (finding) [facility] Start: 04-29-2021 End: 07-08-2022 Alcohol intake [facility] Start: 10-28-2019 End: 12-13-2021 History SDOH Alcohol Std Drinks 1 [facility] Start: 11-05-2012 History SDOH Alcohol Comment light beer [facility] Start: 10-26-2019 End: 03-14-2022 History SDOH Social Connections Phone 2 [facility] Start: 10-26-2019 History SDOH Social Connections Nondenominational 98 [facility] Start: 10-26-2019 End: 03-14-2022 History SDOH Social Connections Living 3 [facility] Start: 10-26-2019 End: 03-14-2022 History SDOH Physical Activity DPW 0 [facility] Start: 10-26-2019 History SDOH Financial 5 [facility] Start: 10-26-2019 Education 15 [facility] Start: 08-07-2021 End: 05-28-2023 Tobacco smoking status NHIS Unknown if ever smoked [facility] Start: 07-09-2020 Occasional [facility] Start: 07-09-2020 None [facility] Start: 03-30-2017 Spouse/ Significant Other [facility] Start: 07-09-2020 Non-smoker [facility] Start: 1940 Sex Assigned At Male [facility] Start: 03-14-2022 End: 07-08-2022 Social connection and isolation panel [facility] Do you belong to any clubs or organizations such as scientologist groups, unions, fraternal or athletic groups, or school groups? Yes [facility] Are you now , , , , never or living with a partner? [facility] How often to you hav e a drink containing alcohol? Never [facility] Average Number of Drinks Not on file [facility] Do you feel stress - tense, restless, nervous, or anxious, or unable to sleep at night because your mind is troubled all the time - these days [OSQ] To some extent [facility] (I/We) worried wheth er (my/our) food would run out before (I/we) got money to buy more. Never true [facility] In the past 12 month s, was there a time when you were not able to pay the mortgage or rent on time? No [facility] How often to you hav e a drink containing alcohol? 2-3 time sa week [facility] How many standard dr inks containing alcohol do you have on a typical day? 1 or 2 [facility] Do you feel stress - tense, restless, nervous, or anxious, or unable to sleep at night because your mind is troubled all the time - these days [OSQ] Rather much [facility] Start: 03-24-2023 Gender identity Identifies as male gender (finding) [facility] Start: 05-22-2024 End: 06-16-2024 Sex Male (finding) [facility] Medical Equipment Procedure Code Equipment Code Equipment Original Text Equipment Identifier Dates Colonoscopy CLIP,RESO 360 UL TRA 235_17 FDA Start: 10-07-2023 Colonoscopy CLIP,RESO 360 UL TRA 235_17 FDA Start: 10-07-2023 Colonoscopy CLIP,RESO 360 UL TRA 235_17 FDA Start: 10-07-2023 Colonoscopy CLIP,RESO 360 UL TRA 235_17 FDA Start: 10-07-2023 Colonoscopy CLIP,RESO 360 UL TRA 235_17 FDA Start: 10-07-2023 Colonoscopy CLIP,RESO 360 UL TRA 235_17 FDA Start: 10-07-2023 Colonoscopy CLIP,RESO 360 UL TRA 235_17 FDA Start: 10-07-2023 Colonoscopy CLIP,RESO 360 UL TRA 235_17 FDA Start: 10-07-2023 Colonoscopy CLIP,RESO 360 UL TRA 235_17 FDA Start: 10-07-2023 Colonoscopy FDA Start: 10-07-2023 Colonoscopy FDA Start: 10-07-2023 Colonoscopy FDA Start: 10-07-2023 Colonoscopy FDA Start: 10-07-2023 Colonoscopy FDA Start: 10-07-2023 Colonoscopy FDA Start: 10-07-2023 Colonoscopy FDA Start: 10-07-2023 Colonoscopy FDA Start: 10-07-2023 Colonoscopy FDA Start: 10-07-2023 Colonoscopy FDA Start: 10-07-2023 Colonoscopy FDA Start: 10-07-2023 Colonoscopy FDA Start: 10-07-2023 Colonoscopy FDA Start: 10-07-2023 Colonoscopy FDA Start: 10-07-2023 Colonoscopy FDA Start: 10-07-2023 Colonoscopy FDA Start: 10-07-2023 Colonoscopy FDA Start: 10-07-2023 Colonoscopy FDA Start: 10-07-2023 Colonoscopy FDA Start: 10-07-2023 Colonoscopy FDA Start: 10-07-2023 Colonoscopy FDA Start: 10-07-2023 Colonoscopy FDA Start: 10-07-2023 Colonoscopy FDA Start: 10-07-2023 Colonoscopy FDA Start: 10-07-2023 Colonoscopy FDA Start: 10-07-2023 Colonoscopy FDA Start: 10-07-2023 Colonoscopy FDA Start: 10-07-2023 Fabric Hemashiel d Thk.76mm Collagen 6x2in Cardiovascular 2 Velour Knitted - [id number] Start: 05-13-2022 Stent Absolute P ro 10mm Nitinol 60mm 135cm Biliary Self Expandable - [id number] Start: 05-13-2022 Stent Absolute P ro 10mm Nitinol 60mm 135cm Biliary Self Expandable - [id number] Start: 05-13-2022 Goals Date Patient Goal Desired Activity /State Personal health goal Functional Status Date Assessment Result Facility 06-05-2024 Functional status Chair;Bathroom Privileg e [facility] Work Phone: 05-24-2024 Functional status Ambulates [facility] Work Phone: 02-22-2024 Functional status Chair [facility] Work Phone: 03-27-2023 Functional status Ambulates [facility] Work Phone: 03-26-2023 Functional status Ambulates [facility] Work Phone: 05-16-2022 Are you deaf, or do you have serious difficulty hearing No 05/16/2022 2:05 PM Yue Herrera RN No [facility] 05-16-2022 Are you blind, or do you have serious difficulty seeing, even when wearing glasses No 05/16/2022 2:05 PM Yue Herrera RN No [facility] 05-16-2022 Do you have serious difficulty walking or climbing stairs No 05/16/2022 2:05 PM Yue Herrera RN No [facility] 05-16-2022 Do you have difficul ty dressing or bathing No 05/16/2022 2:05 PM Yue Herrera RN No [facility] 05-16-2022 Because of a physica l, mental, or emotional condition, do you have difficulty doing errands alone such as visiting a physician's office or shopping Yes 05/16/2022 2:05 PM Yue Herrera RN Yes [facility] Mental Status Date Assessment Result Facility 06-05-2024 Cognitive function [facility]/Name [facility] Work Phone: 05-24-2024 Cognitive function Voice/Name [facility] Work Phone: 02-22-2024 Cognitive function Voice/Name [facility] Work Phone: 03-27-2023 Cognitive function Voice/Name [facility] Work Phone: 03-26-2023 Cognitive function Voice/Name [facility] Work Phone: 11-24-2022 Cognitive function [facility]/Name [facility] Work Phone: 05-16-2022 Because of a physica l, mental, or emotional condition, do you have serious difficulty concentrating, remembering, or making decisions Yes 05/16/2022 2:05 PM Yue Herrera RN Yes [facility] Clinical Notes 11-20-2016 to 09-08-2024 Telephone Encounter - Mallory Brady - 09/08/2024 12:13 PM EDTTelephone Encounter - Mallory Brady - 09/08/2024 12:13 PM EDTTelephone Encounter - Chari Velez APRN.CNP - 09/08/2024 11:58 AM EDT Note Date & Type Note Facility 09-08-2024 Telephone encount er Note Scheduled lab appointment prior to CT Mallory Brady [facility] 09-08-2024 Miscellaneous Notes Formattin g of this note might be different from the original. Scheduled lab appointment prior to CT Mallory Brady Done. Chari Velez APRN.LEGAL STENOGRAPHER Please place order for creatinine order for pt , pt appt on 09/09/[address] documented in this encounter [facility] 09-08-2024 Telephone encount er Note Done. Chari Velez APRN.LEGAL STENOGRAPHER [facility] Work Phone: 09-08-[address] Tele[address] encount er Note Please place order for creatinine order for pt , pt appt on 09/09/[address] [facility] 08-31-2024 History of Presen t illness Narrative Images from the original note were not included. Pulmonary Medicine Patients name: Oswaldo Corley PCP: Mei Cummins MD CC: follow-up COPD HPI: Oswaldo Corley is a 84 year old male former [id number] smoker, quitting 2002 with PMH significant for CAD s/p CABG/stents, AAA, DM2, HTN, prostate cancer s/p radiation and hormonal therapy, squamous cell carcinoma of the lung s/p left thoracoscopy, conversion to mini thoracotomy, evacuation of pleural effusion, wedge resection 01/2020, multiple lung nodules, COPD, PE on Eliquis and Bronchiectasis. Current maintenance therapy consists of Advair, Spiriva, and as needed Albuterol/Duoneb and nebulized Budesonide. He presents today for follow-up. Today, patient reports his symptoms are at baseline. Continues to have a cough with light green sputum. No longer experiencing hemoptysis. No wheezing. Intermittent dyspnea at rest. Exertional dyspnea has not changed. No fevers, chills, or night sweats. His weight is down about 5 lbs since the first of the year but overall has maintained. Due for updated CT with Dr. Meraz next week. Using nebulized Budesonide BID, and Albuterol on occasion, not every day. DME: [employer] 5L continuous 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 Lung cancer (HCC) Prostate cancer (HCC) Dx Dec 2014, s/p radiation, on hormonal therapy Ulcer of right foot (HCC) 04/30/2022 Allergies: Imdur [Isosorbide M* Hives Comment:Black out and dizziness Medication List Accurate as of August 26, 2024 5:24 PM. If you have any questions, ask your nurse or doctor. CONTINUE taking these medications acetaminophen 325 mg Cap ADVAIR HFA 230-21 mcg/actuation inhaler Generic drug: fluticasone-salmeterol HFA albuterol HFA 90 mcg/actuation inhaler Commonly known as: PROAIR HFA Inhale 2 Puffs as instructed every 4 hours as needed for wheezing/shortness of breath. apixaban 2.5 mg tab(s) Commonly known as: ELIQUIS Take 1 tablet by mouth two times a day. aspirin, enteric coated 81 mg EC tablet Commonly known as: ASPIRIN, ENTERIC COATED atorvastatin 40 mg tablet Commonly known as: LIPITOR Take 1 tablet by mouth once daily. budesonide 0.5 mg/2 mL nebulizer solution Commonly known as: PULMICORT Use 2 mL via nebulizer two times a day as needed. INHALE 2 ML BY NEBULIZER OVER 5-15 MINUTES EVERY 12 HOURS. DULoxetine 30 mg capsule Commonly known as: CYMBALTA ezetimibe 10 mg tablet Commonly known as: ZETIA Take 1 tablet by mouth once daily. furosemide 20 mg tablet Commonly known as: LASIX Take 1 tablet by mouth once daily. guaiFENesin 600 mg 12 hr tablet Commonly known as: MUCINEX iv contrast (will be provided with radiology test) CT Chest W -Inject, intravenously, once for 1 dose.No IV access, insert saline lock prior to the beginning of sedation, infusion, injection of imaging exam. Discontinue saline lock post exam. If Pt. has a central line or IVAD, may access for administration according to line specific nursing protocol. Once exam is complete flush line and de-access according to line specific nursing protocol in the CT contrast administration guidelines link. LORazepam 1 mg tablet Commonly known as: ATIVAN Take 1 tablet by mouth three times a day for 90 days. nitroglycerin sublingual 0.4 mg SL tablet Commonly known as: NITROSTAT Dissolve 1 tablet under the tongue every 5 minutes as needed. ondansetron 4 mg tablet Commonly known as: ZOFRAN oxyCODONE IR 5 mg immediate release tablet Commonly known as: ROXICODONE OXYGEN (HOME THERAPY) roflumilast 500 mcg Tab Commonly known as: DALIRESP Take 1 tablet by mouth once daily. SantyL ointment Generic drug: collagenase Apply to affected area once daily. APPLY TO AFFECTED AREA SPIRIVA RESPIMAT 2.5 mcg/actuation inhaler Generic drug: tiotropium bromide Inhale 2 puffs as instructed once daily. tamsulosin 0.4 mg Commonly known as: FLOMAX DATA: I personally reviewed and analyzed all labs, radiographs and available pulmonary function testing PFT: 09/2022 Spirometry indicates severe obstruction. There was not a significant bronchodilator response. The diffusing capacity is moderately reduced. CT Chest: 03/2024 IMPRESSION: 1. New and worsening bronchiectasis with irregular patchy and groundglass opacities in the middle and RIGHT lower lobes, favoring infection. 2. Near complete interval resolution of suspected pneumonia in the LEFT lower lobe seen on 01/12/2024. 3. Interval resolution of the spiculated nodularity seen in the posterior RIGHT upper lobe on 01/12/2024, most likely resolving infection. 4. Unchanged thick walled pleural-based cavitation in the periphery of the LEFT lower lobe adjacent to wedge resection sutures. 5. Unchanged curvilinear opacity with adjacent architectural distortion in the LEFT upper lobe. Neonatal Pediatric Nurse: ARTEM Transcribe Date/Time: Mar 16 2024 3:35P Lung parenchyma and airways: * Unchanged curvilinear opacity with adjacent architectural distortion in the LEFT upper lobe on series 6 image 59. * New and worsening bronchiectasis with irregular patchy and groundglass opacities in the middle and RIGHT lower lobes with associated architectural distortion best seen on series 6 image 142. * Thick walled pleural-based cavitation in the periphery of the LEFT lower lobe on series 6 image 41 adjacent wedge resection sutures is unchanged in size or appearance. The previously new consolidative and patchy opacities in the LEFT lower lobe on 01/12/2024 has nearly completely resolved. There is some persistent multifocal mucus plugging in the LEFT lower lobe. * Interval resolution of the spiculated nodularity seen in the posterior RIGHT upper lobe on 01/12/2024. * A few additional sub-4 mm pulmonary nodules are unchanged. Pleural space: Unchanged calcified RIGHT pleural plaques. Possible trace RIGHT pleural effusion. Pleural-based cavitation in the dependent LEFT thorax described above. Labs: WBC (k/uL) Date Value 07/18/2024 6.87 04/23/2021 9.21 RBC (m/uL) Date Value 07/18/2024 3.69 04/23/2021 5.07 Hemoglobin (g/dL) Date Value 07/18/2024 10.2 04/23/2021 14.8 Hematocrit (%) Date Value 07/18/2024 34.5 04/23/2021 46.2 Platelet Count (k/uL) Date Value 07/18/2024 266 04/23/2021 180 MPV (fL) Date Value 07/18/2024 8.8 04/23/2021 8.5 Neut% (%) Date Value 04/23/2021 85.8 Neutrophils % (%) Date Value 07/18/2024 78.4 Eosin% (%) Date Value 04/23/2021 1.0 Eosinophils % (%) Date Value 07/18/2024 4.5 Baso% (%) Date Value 04/23/2021 0.2 Basophils % (%) Date Value 07/18/2024 0.6 Abs Neut (ANC) (k/uL) Date Value 04/23/2021 7.90 Abs Neut (k/uL) Date Value 07/18/2024 5.38 Abs Posey (k/uL) Date Value 07/18/2024 0.47 04/23/2021 0.57 Abs Eosin (k/uL) Date Value 07/18/2024 0.31 04/23/2021 0.09 Abs Baso (k/uL) Date Value 07/18/2024 0.04 04/23/2021 <0.03 IMMUNIZATIONS Prevnar - xx Pneumovax 23 - xx Influenza - 12/2023 COVID- - 12/2023 RSV- xx Review of Systems Constitutional: Negative for activity change, appetite change and unexpected weight change. HENT: Negative for congestion, mouth sores, postnasal drip and sinus pain. Respiratory: Positive for cough and shortness of breath. Negative for chest tightness and wheezing. Cardiovascular: Positive for leg swelling (intermittent). Negative for chest pain and palpitations. Allergic/Immunologic: Negative for environmental allergies. Neurological: Negative for dizziness and light-headedness. BP (P) 122/60 Pulse (P) 76 Resp (P) 20 SpO2 (P) 98% Physical Exam Vitals reviewed. Constitutional: General: He is not in acute distress. Appearance: Normal appearance. He is not ill-appearing. HENT: Head: Normocephalic. Mouth/Throat: Mouth: Mucous membranes are moist. Pharynx: No posterior oropharyngeal erythema. Cardiovascular: Rate and Rhythm: Normal rate and regular rhythm. Heart sounds: Normal heart sounds. Pulmonary: Effort: Pulmonary effort is normal. No respiratory distress. Breath sounds: No wheezing. Lymphadenopathy: Cervical: No cervical adenopathy. Neurological: Mental Status: He is alert. ASSESSMENT/PLAN: 1. 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) - ICD9: 496, ICD10: J44.9 (primary diagnosis) - symptoms at baseline, continues to experience exertional dyspnea with little activity. Improved with nebulized Budesonide. - continue Advair and Spiriva. Continue Budesonide/Duoneb and Albuterol as needed. - will remain off oral steroids. - activity as able. 2. Chronic hypoxemic respiratory failure (HCC) - ICD9: 518.83, 799.02, ICD10: J96.11 - continues to be compliant and benefit from supplemental O2. 3. Bronchiectasis without complication (HCC) - ICD9: 494.0, ICD10: J47.9 - Symptoms controlled - continue mucous clearing techniques 4. History of cancer of lower lobe bronchus or lung - ICD9: V10.11, ICD10: Z85.118 - following with Dr. Meraz in Oncology - due for surveillance chest CT next week with follow-up visit after. 5. Iron 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 loss - ICD9: 280.0, ICD10: D50.0 - most recent labs improved. F/u 3 months Portions of this documentation were copied and pasted from previous office visit notes in order to provide a cohesive continuity of the history. The note has been reviewed and edited and updated as necessary. Kailash Cordova APRN.DANELLE I spent a total of 21 minutes on the date of the service which included preparing to see the patient, [id number] patient care, completing clinical documentation, performing a medically appropriate examination, and counseling and educating the patient/family/caregiver. documented in this encounter [facility] 08-31-2024 Note [facility] 08-24-2024 Progress note Note Date/Time August 24, 2024 3:46pm [facility] [address] [place] [address] Progress Note - Wound Care 08/24/24 1541 MR#: [id number] Acct: [id number] Name: OSWALDO CORLEY Rep #:[id number] : 1940 84 From: Rasta Carr PM PCP: Dr. Mei Cummins MD Status:RE G RCR Location: History of Present Illness Date of Service: 08/24/24 Chief Complaint: Left medial ankle ulcer History of Wound: Patient is a very pleasant 83 year old male with a left medialankle ulcer that he has been seeing residential service technician, Dr. Viveros. Patient has a significant history for COPD that he sees Palliative care to help manage. He is on home O2. He also has a history of Prostate CA, Squamous carcinoma of left lung, HTN, anxiety and depression, AAA without rupture, CAD, coronary artery stent placement (multiple), CABG x 3, former smoker, PAD, PBH, and pulmonary embolism- on anticoagulants, and hyperlipidemia. He has had arterial studies inthe past and had some vascular procedures (by Dr. Vigil) to his left leg. He denies hx of diabetes. His providers are all with [facility]. He has had this left medial ankle ulcer for 3 months. He has been placing Santyl covered with [place] SAP. There has not been much improvement to this area. He states that he was referred to see us by [facility] and that Dr. Viveros also suggested he get a second opinion. He is on a new medication that his states is an antibiotic but they are unsure of the name. He denies fever, chills, nausea or vomiting. He comes in today for further evaluation and treatment. Progress of Wound: Stable slow healing wound to the left ankle and great toe. Subjective Subjective Patient is a 84-year-old male presenting to wound care center today for follow-up evaluation of left foot medial ankle ulceration and first metatarsophalangealjoint dorsal ulceration. Patient has been compliant with dressing changes and has left the ankle dressing clean dry and intact has been changing the great toewound as ordered. He is not elevating as much as he should and sits at the kitchen table throughout the day. He was unsure about elevating when educated. He denies any trauma or falls. Denies constitutional symptoms. No other pedal complaints at this time. Objective Data Objective Data Vital Signs: Vital Signs Temp Pulse Resp BP Pulse Ox O2 Del Method O2 Flow Rate 96.8 F L 71 20 H 123/53 H 93 Nasal Cannula 4 08/24/24 14:21 08/24/24 14:21 08/24/24 14:21 08/24/24 14:21 08/17/24 14:00 08/24/24 14:21 08/24/24 14:21 FiO2 95 08/24/24 14:21 Oxygen Flow Rate (L/min) 4 Oxygen Delivery Method Nasal Cannula Weight: 74.843 kg Body Mass Index (BMI) 22.4 Physical Exam Narrative Vascular: DP and PT pulses are faintly palpable. CFT is brisk. No erythema appreciated. Neurological: Light touch intact. Patient does despond painful stimuli. Dermatological: Full-thickness wound to the dorsal aspect left foot first metatarsal phalangeal joint measuring 0.5 x 1.7 x 0.1 cm. Full-thickness wound to the medial ankle of the left lower extremity measuring 0.8 x 1.0 x 0.3 cm. Negative probe to bone. No erythema. Excisional debridement down to including subcutaneous tissue to the left lower extremity, lateral ankle, full-thickness wound with a number 3 mm dermal curetteand #15 blade without incident. Predebridement measurement was 0.7 x 0.9 x 0.2 cm. Postdebridement measurement is 0.8 x 1.0 x 0.3 cm. Epi cord 2.0 x 3.0 cm was applied to the left full-thickness ulceration with 100% use. 10th application. The graft site was free and clear of any infection. The wound/skin graft substitute was dressed with nonadherent bandagesecured in place with Steri-Strips followed by bolster dressing as well as a double layer Tubigrip. Excisional debridement down to including subcutaneous tissue to left lower extremity first metatarsal phalangeal joint dorsally with a #3 minimally dermal curette done without incident. Predebridement measurement was 0.4 x 1.5 x 0.1 cm. Postdebridement measurement is 0.5 x 1.7 x 0.1 cm. Musculoskeletal: No pain to palpation to full-thickness wound to the left lower extremity medial ankle. No pain with calf pressure. Debridement Note Debridement Note Debridement Free Text: Excisional debridement down to including subcutaneous tissue to the left lower extremity, lateral ankle, full-thickness wound with a number 3 mm dermal curette and #15 blade without incident. Predebridement measurement was 0.7 x 0.9 x 0.2 cm. Postdebridement measurement is 0.8 x 1.0 x 0.3 cm. Epi cord 2.0 x 3.0 cm was applied to the left full-thickness ulceration with 100% use. 10th application. The graft site was free and clear of any infection. The wound/skin graft substitute was dressed with nonadherent bandagesecured in place with Steri-Strips followed by bolster dressing as well as a double layer Tubigrip. Excisional debridement down to including subcutaneous tissue to left lower extremity first metatarsal phalangeal joint dorsally with a #3 minimally dermal curette done without incident. Predebridement measurement was 0.4 x 1.5 x 0.1 cm. Postdebridement measurement is 0.5 x 1.7 x 0.1 cm. Post-Debridement Measurements and Additional Note: Post-Debridement Measurements/Treatment - Nurse 1 - General Ulcer Assessment Start: 08/03/24 13:56 Freq: Status: Active Protocol: MILENA Activity Type Activity Date Activity User E-sign Co-sign Detail Recorded Client Recorded Date Recorded By Document 08/03/24 13:57 UT [id number] 08/03/24 14:04 UT Document 08/10/24 13:57 [id number] 08/10/24 14:02 Document 08/17/24 14:00 MT [id number] 08/17/24 14:05 UT Document 08/24/24 14:21 [id number] 08/24/24 14:32 08/03/24 08/10/24 08/17/24 13:57 13:57 14:00 - Today's Visit Information Type of service Follow-up Visit Follow-up Visit Follow-up Visit (Physician/LEGAL STENOGRAPHER (Physician/LEGAL STENOGRAPHER (Physician/LEGAL STENOGRAPHER ) ) ) Arrival Mode Ambulatory Wheelchair Ambulatory, Wheelchair Accompanied by Patient Identification Verified (Name & Yes Yes Yes ) Patient Requires Transmission-Based No Precautions Safety Precautions Fall Prevention Fall Prevention Height and Weight Body Mass Index (BMI) 22.4 22.4 22.4 BMI Classification Normal Normal Normal Vital Signs Temperature (97.8 F-99.1 F) 97 F L 96.7 F L 97 F L Temperature Source Temporal Temporal Temporal Pulse Rate (60-100) 65 72 80 Pulse Location Monitor Monitor Monitor Respiratory Rate (12-18) 18 16 22 H Respiratory rate source Observation Observation Monitor Pulse Oximetry 97 93 Oxygen Delivery Method Nasal Cannula Room Air Nasal Cannula O2 L/MIN (L/min) 3 5 FIO2 % Blood Pressure (90/60-120/80) 127/53 H 120/54 L 120/63 Blood Pressure Mean (mm Hg) 77 76 82 Source Monitor Monitor Monitor Position Sitting Sitting Semi-Fowlers Blood Pressure Location Right Arm Left Arm Right Arm History Since Last Visit- (Skip if this is Patient's initial visit) Have you changed medications since your No last visit? Any new allergies or adverse reactions No Had a fall/change in ADL's that may No increase risk of falls Signs or symptoms of abuse and/or No neglect since last visit Have you been in the hospital since your No last visit? Has dressing in place as prescribed Yes Yes Yes Has compression in place as prescribed Yes Yes Yes Has offloadiing in place as prescribed Yes N/A Yes Experienced any changes in pain level or Yes No Yes management Left Footwear Regular Shoe Regular Shoe Regular Shoe Right Footwear Regular Shoe Regular Shoe Regular Shoe Pain Scale: 0-10 Numeric Is Patient Pain Free? Yes Yes Yes 08/24/24 14:21 WC - Today's Visit Information Type of service Follow-up Visit (Physician/LEGAL STENOGRAPHER ) Arrival Mode Wheelchair Accompanied by Patient Identification Verified (Name & Yes ) Patient Requires Transmission-Based Precautions Safety Precautions Height and Weight Body Mass Index (BMI) 22.4 BMI Classification Normal Vital Signs Temperature (97.8 F-99.1 F) 96.8 F L Temperature Source Temporal Pulse Rate (60-100) 71 Pulse Location Monitor Respiratory Rate (12-18) 20 H Respiratory rate source Observation Pulse Oximetry Oxygen Delivery Method Nasal Cannula O2 L/MIN (L/min) 4 FIO2 % 95 Blood Pressure (90/60-120/80) 123/53 H Blood Pressure Mean (mm Hg) 76 Source Monitor Position Sitting Blood Pressure Location Right Arm History Since Last Visit- (Skip if this is Patient's initial visit) Have you changed medications since your No last visit? Any new allergies or adverse reactions No Had a fall/change in ADL's that may No increase risk of falls Signs or symptoms of abuse and/or No neglect since last visit Have you been in the hospital since your No last visit? Has dressing in place as prescribed Yes Has compression in place as prescribed Yes Has offloadiing in place as prescribed Yes Experienced any changes in pain level or No management Left Footwear Surgical Shoe with pressure relief insole Right Footwear Regular Shoe Pain Scale: 0-10 Numeric Is Patient Pain Free? Yes WC - Nurse 1 - General Ulcer Measurement Start: 08/03/24 13:56 Freq: Status: Active Protocol: Activity Type Activity Date Activity User E-sign Co-sign Detail Recorded Client Recorded Date Recorded By Document 08/03/24 13:57 MT [id number] 08/03/24 14:04 MT Document 08/10/24 13:57 GM [id number] 08/10/24 14:02 GM Document 08/17/24 14:00 MT [id number] 08/17/24 14:05 MT Document 08/24/24 14:21 KW [id number] 08/24/24 14:32 KW 08/03/24 08/10/24 08/17/24 13:57 13:57 14:00 Wound Center Nurse 1 3-left foot -Current Size (cm) - Length 0.7 0.5 0.1 -Current Size (cm) - Width 2.0 2.0 0.1 -Current Size (cm) - Depth 0.1 0.1 0.1 -Total Square Cm 1.40 1.00 0.01 -Date of Last Picture (Recall this 08/10/24 field) -Photo Taken No Yes No -Epithelialization None Present -Tunneling No No No -Undermining/Tunneling No No No -Circular Undermining No No No -Exudate Amt Medium Small None Present -Exudate Type Purulent Yellow/Green -Wound Margin Flat & Intact Distinct, Flat & Intact Outline Attached -Granulation Amt Large (67-100%) Medium (34-66%) None Present (0 %) -Granulation Quality Pale,[place] Red -Slough/Fibrin Yes No -Necrosis Amt Small (1-33%) Medium (34-66%) -Necrotic Tissue Type Adherent Slough -Texture (Bell-wound Skin Appearance) Assessed Assessed Assessed -Moisture (Bell-wound Skin Appearance) Assessed Assessed Assessed -Color (Bell-wound Skin Appearance) Assessed Assessed Assessed -Temperature (Bell-wound Skin No Abnormality No Abnormality No Abnormality Appearance) (Pt Warm) (Pt Warm) (Pt Warm) -Tenderness on Palpation (Bell-wound No Yes No Skin Appearance) -Ulcer Cleansing Soap and Water Soap and Water Soap and Water -Foul Odor after Cleansing No No No -Anesthetic Used 4% Lidocaine 5% Lidocaine Solution Gel #1- L MEDIAL ANKLE -Current Size (cm) - Length 1 1.1 1.1 -Current Size (cm) - Width 1.5 1.0 1.1 -Current Size (cm) - Depth 0.2 0.6 0.2 -Total Square Cm 1.5 1.10 1.21 -Date of Last Picture (Recall this 08/10/24 field) -Photo Taken No Yes No -Epithelialization None Present -Tunneling No No No -Undermining/Tunneling No No No -Circular Undermining No No No -Change in Wound Grade/Stage No -Exudate Amt Medium Small -Exudate Type Purulent Purulent -Wound Margin Flat & Intact Distinct, Thickened & Outline Rolled Under Attached -Granulation Amt Large (67-100%) None Present (0 Small (1-33%) %) -Granulation Quality Pale,[place] Pale,[place] -Slough/Fibrin Yes -Necrosis Amt Medium (34-66%) Large (67-100%) Large (67-100%) -Necrotic Tissue Type Adherent Slough Adherent Slough Adherent Slough -Texture (Bell-wound Skin Appearance) Assessed Assessed Assessed -Moisture (Bell-wound Skin Appearance) Assessed Assessed Assessed -Color (Bell-wound Skin Appearance) Assessed Assessed Assessed -Temperature (Bell-wound Skin No Abnormality No Abnormality No Abnormality Appearance) (Pt Warm) (Pt Warm) (Pt Warm) -Tenderness on Palpation (Bell-wound No Yes No Skin Appearance) -Ulcer Cleansing Soap and Water Soap and Water Soap and Water -Foul Odor after Cleansing No No No -Anesthetic Used 4% Lidocaine 5% Lidocaine 5% Lidocaine Solution Gel Gel Lower Limb Edema Present No Left Calf (cm) 29.1 Left Ankle (cm) 24 08/24/24 14:21 Wound Center Nurse 1 3-left foot -Current Size (cm) - Length 0.4 -Current Size (cm) - Width 2 -Current Size (cm) - Depth 0.2 -Total Square Cm 0.8 -Date of Last Picture (Recall this 08/24/24 field) -Photo Taken -Epithelialization -Tunneling -Undermining/Tunneling -Circular Undermining -Exudate Amt Medium -Exudate Type Serosanguineous -Wound Margin Thickened & Rolled Under -Granulation Amt Small (1-33%) -Granulation Quality [place] -Slough/Fibrin -Necrosis Amt Large (67-100%) -Necrotic Tissue Type Adherent Slough -Texture (Bell-wound Skin Appearance) Assessed -Moisture (Bell-wound Skin Appearance) Assessed -Color (Bell-wound Skin Appearance) Assessed, Erythema -Temperature (Bell-wound Skin No Abnormality Appearance) (Pt Warm) -Tenderness on Palpation (Bell-wound No Skin Appearance) -Ulcer Cleansing Wound Cleanser -Foul Odor after Cleansing No -Anesthetic Used 4% Lidocaine Solution #1- L MEDIAL ANKLE -Current Size (cm) - Length 1 -Current Size (cm) - Width 1 -Current Size (cm) - Depth 0.1 -Total Square Cm 1 -Date of Last Picture (Recall this 08/24/24 field) -Photo Taken -Epithelialization -Tunneling -Undermining/Tunneling -Circular Undermining -Change in Wound Grade/Stage -Exudate Amt Small -Exudate Type Serosanguineous -Wound Margin Distinct, Outline Attached -Granulation Amt -Granulation Quality -Slough/Fibrin -Necrosis Amt -Necrotic Tissue Type -Texture (Bell-wound Skin Appearance) Assessed -Moisture (Bell-wound Skin Appearance) Assessed -Color (Bell-wound Skin Appearance) Assessed -Temperature (Bell-wound Skin No Abnormality Appearance) (Pt Warm) -Tenderness on Palpation (Bell-wound No Skin Appearance) -Ulcer Cleansing Soap and Water -Foul Odor after Cleansing -Anesthetic Used 4% Lidocaine Solution Lower Limb Edema Present Left Calf (cm) Left Ankle (cm) WC - Nurse 2 - General Ulcer CM Notes Start: 08/03/24 13:56 Freq: Status: Active Protocol: Activity Type Activity Date Activity User E-sign Co-sign Detail Recorded Client Recorded Date Recorded By Document 08/03/24 14:12 SONNY [id number] 08/03/24 14:21 Edit Result 08/03/24 14:12 JF (1) 000 08/09/24 15:06 JF Document 08/10/24 14:05 JF [id number] 08/10/24 14:12 Document 08/17/24 14:14 JF [id number] 08/17/24 14:19 JF Document 08/24/24 14:53 DS [id number] 08/24/24 14:57 DS Edit Result 08/24/24 14:53 DS (2) [id number] 08/24/24 14:59 DS Edit Result 08/24/24 14:53 DS (3) [id number] 08/24/24 15:38 DS (1) #1- L MEDIAL ANKLE - Apply Skin Sub - 1st 25 sq cm - Legs => 1 (2) 3-left foot - Debridement - Subq, 1st 20sq cm No => Yes (3) #1- L MEDIAL ANKLE - Bioengineered Tissue No => Yes 08/03/24 08/10/24 08/17/24 14:12 14:05 14:14 Wound Center Nurse 2 3-left foot -Time 14:13 14:05 -Correct Patient Yes Yes Yes -Correct Side, Site, Position Yes Yes No -Correct Procedure Yes Yes No -Procedure Performed Yes Yes No -Type of Procedure Debridement Debridement -Clinical Debridement Subcutaneous Subcutaneous -Tissue Removed Subcutaneous Subcutaneous -Post Debridement (cm) - Length 0.7 0.6 0.1 -Post Debridement (cm) - Width 2.0 1.8 0.1 -Post Debridement (cm) - Depth 0.1 0.1 0.1 -Total Square (Post) (cm) 1.40 1.08 0.01 -Area of Debridement (cm) - Length 0.7 0.6 0.1 -Area of Debridement (cm) - Width 2.0 1.8 0.1 -Total Square (Area) (cm) 1.40 1.08 0.01 -Tunneling No No -Undermining/Tunneling No No -Circular Undermining No No -Wound/Ulcer Outcome Not Healed Not Healed Not Healed -Ulcer Cleansing Rinsed/ Rinsed/ Irrigated with Irrigated with Saline Saline -Foul Odor after Cleansing No No -Bioengineered Tissue No No -Bleeding Controlled with Pressure Pressure -Treatment Response Procedure Procedure Tolerated Well Tolerated Well -Offloading No No -Debridement - Subq, 1st 20sq cm Yes Yes #1- L MEDIAL ANKLE -Time 14:13 14:05 14:14 -Correct Patient Yes Yes Yes -Correct Side, Site, Position Yes Yes Yes -Correct Procedure Yes Yes Yes -Procedure Performed Yes Yes Yes -Type of Procedure Debridement Debridement Debridement -Clinical Debridement Bone Muscle / Fascia Muscle / Fascia -Tissue Removed Non-viable Muscle Muscle tissue -Post Debridement (cm) - Length 1 0.9 1.2 -Post Debridement (cm) - Width 1 1.0 1.0 -Post Debridement (cm) - Depth 0.4 0.2 0.2 -Total Square (Post) (cm) 1 0.90 1.20 -Area of Debridement (cm) - Length 1 0.9 1.2 -Area of Debridement (cm) - Width 1 1.0 1.0 -Total Square (Area) (cm) 1 0.90 1.20 -Tunneling No No No -Undermining/Tunneling No No No -Circular Undermining No No No -Wound/Ulcer Outcome Not Healed Not Healed Not Healed -Ulcer Cleansing Rinsed/ Rinsed/ Rinsed/ Irrigated with Irrigated with Irrigated with Saline Saline Saline -Foul Odor after Cleansing No No No -Bioengineered Tissue Yes Yes Yes -Type of Bioengineered Tissue Epicord Epicord Epicord -Expiration Date 10/31/28 10/31/28 11/30/28 -Product Lot Number [id number] -Percent Used 100 100 100 -Lot number of Saline Used [id number] -Bleeding Controlled with Pressure Pressure Pressure -Treatment Response Procedure Procedure Procedure Tolerated Well Tolerated Well Tolerated Well -Offloading No No No -Debridement - Subq, 1st 20sq cm -Debridement - Muscle / Fascia, 1st No No 20sq cm -Debridement - Bone, 1st 20sq cm No -Apply Skin Sub - 1st 25 sq cm - Legs 1 1 1 -Epicord Application 1-4 (per sq cm) 6 6 6 Pain Scale: 0-10 Numeric Is Patient Pain Free? Yes Yes Yes 08/24/24 14:53 Wound Center Nurse 2 3-left foot -Time 14:54 -Correct Patient Yes -Correct Side, Site, Position Yes -Correct Procedure Yes -Procedure Performed Yes -Type of Procedure Debridement -Clinical Debridement Subcutaneous -Tissue Removed Subcutaneous -Post Debridement (cm) - Length 0.5 -Post Debridement (cm) - Width 1.7 -Post Debridement (cm) - Depth 0.1 -Total Square (Post) (cm) 0.85 -Area of Debridement (cm) - Length 0.5 -Area of Debridement (cm) - Width 1.7 -Total Square (Area) (cm) 0.85 -Tunneling No -Undermining/Tunneling No -Circular Undermining No -Wound/Ulcer Outcome Not Healed -Ulcer Cleansing Rinsed/ Irrigated with Saline -Foul Odor after Cleansing No -Bioengineered Tissue No -Bleeding Controlled with Pressure -Treatment Response Procedure Tolerated Well -Offloading -Debridement - Subq, 1st 20sq cm Yes #1- L MEDIAL ANKLE -Time 14:54 -Correct Patient Yes -Correct Side, Site, Position Yes -Correct Procedure Yes -Procedure Performed Yes -Type of Procedure Debridement -Clinical Debridement Subcutaneous -Tissue Removed Subcutaneous -Post Debridement (cm) - Length 0.8 -Post Debridement (cm) - Width 1.0 -Post Debridement (cm) - Depth 0.3 -Total Square (Post) (cm) 0.80 -Area of Debridement (cm) - Length 0.5 -Area of Debridement (cm) - Width 1.0 -Total Square (Area) (cm) 0.50 -Tunneling No -Undermining/Tunneling No -Circular Undermining No -Wound/Ulcer Outcome Not Healed -Ulcer Cleansing Rinsed/ Irrigated with Saline -Foul Odor after Cleansing No -Bioengineered Tissue Yes -Type of Bioengineered Tissue Epicord -Expiration Date 12/31/28 -Product Lot Number [id number] -Percent Used 100 -Lot number of Saline Used [id number] -Bleeding Controlled with Pressure -Treatment Response Procedure Tolerated Well -Offloading -Debridement - Subq, 1st 20sq cm No -Debridement - Muscle / Fascia, 1st 20sq cm -Debridement - Bone, 1st 20sq cm -Apply Skin Sub - 1st 25 sq cm - Legs 1 -Epicord Application 1-4 (per sq cm) 6 Pain Scale: 0-10 Numeric Is Patient Pain Free? Yes WC - Nurse 3 - General Ulcer D/C NN Start: 08/03/24 13:56 Freq: Status: Active Protocol: Activity Type Activity Date Activity User E-sign Co-sign Detail Recorded Client Recorded Date Recorded By Document 08/03/24 14:38 MT [id number] 08/03/24 14:39 MT Document 08/10/24 14:23 DL [id number] 08/10/24 14:24 DL Document 08/17/24 14:29 ML [id number] 08/17/24 14:29 ML Document 08/24/24 15:06 KW [id number] 08/24/24 15:07 KW Edit Result 08/24/24 15:06 KW (1) [id number] 08/24/24 15:13 KW (1) 3-left foot - Primary Dressing Applied AMD Dressing 4x4 => AMD Dressing 4x4,C => Hydrogel - Hydrogel => 1 08/03/24 08/10/24 08/17/24 14:38 14:23 14:29 Wound Care Center Nurse 3 3-left foot -Foul Odor after Cleansing No -Primary Dressing Applied -Other Dressing Epifix NÉSTOR -Primary Dressing Covered/Secured with Dry Gauze,Dry Dry Gauze & Dry Gauze,Dry Gauze & Roll Roll Gauze, Gauze & Roll Gauze,Secured Secured with Gauze,Secured with Tape Tape with Tape -AMD Dressing 4x4 -Hydrogel #1- L MEDIAL ANKLE -Foul Odor after Cleansing No -Other Dressing Epifix -Primary Dressing Covered/Secured with Dry Gauze,Dry Dry Gauze & Dry Gauze & Gauze & Roll Roll Gauze, Roll Gauze, Gauze,Secured Secured with Secured with with Tape Tape Tape -Other Covering tubigrip NÉSTOR LLE -Compression Wrap Néstor Wrap -Other Treatment Response Procedure Tolerated Well Pain Scale: 0-10 Numeric Is Patient Pain Free? Yes Yes Yes WC - Visit Discharge Discharge Condition Stable Stable Ambulatory Status Ambulatory Wheelchair Transportation Private Auto Private Auto Medication Reconcilliation completed & No provided to patient/care provider Clinical Summary of Care Provided Yes 08/24/24 15:06 Wound Care Center Nurse 3 3-left foot -Foul Odor after Cleansing -Primary Dressing Applied AMD Dressing 4x4,C Hydrogel -Other Dressing hydrogel -Primary Dressing Covered/Secured with Dry Gauze & Roll Gauze, Secured with Tape -AMD Dressing 4x4 1 -Hydrogel 1 #1- L MEDIAL ANKLE -Foul Odor after Cleansing -Other Dressing -Primary Dressing Covered/Secured with Dry Gauze -Other Covering LLE -Compression Wrap Néstor Wrap -Other 4in and 6 in Treatment Response Pain Scale: 0-10 Numeric Is Patient Pain Free? 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 All findings were discussed with the patient. All questions were answered to the patient's satisfaction. Excisional debridement down to including subcutaneous tissue to the left lower extremity, lateral ankle, full-thickness wound with a number 3 mm dermal curetteand #15 blade without incident. Predebridement measurement was 0.7 x 0.9 x 0.2 cm. Postdebridement measurement is 0.8 x 1.0 x 0.3 cm. Epi cord 2.0 x 3.0 cm was applied to the left full-thickness ulceration with 100% use. 10th application. The graft site was free and clear of any infection. The wound/skin graft substitute was dressed with nonadherent bandagesecured in place with Steri-Strips followed by bolster dressing as well as a double layer Tubigrip. Excisional debridement down to including subcutaneous tissue to left lower extremity first metatarsal phalangeal joint dorsally with a #3 minimally dermal curette done without incident. Predebridement measurement was 0.4 x 1.5 x 0.1 cm. Postdebridement measurement is 0.5 x 1.7 x 0.1 cm. Educated the patient on the importance of elevation to the bilateral lower extremity whenever he is at rest. He was understanding this. Educated the patient to keep the dressing clean dry and intact. Continue dietary supplements/Joon twice daily until follow-up. The patient will follow-up with Dr. Mazariegos in 1 week. (2) Non-pressure chronic ulcer of other part of left foot with fat layer exposed: CODE(S): L97.522 - Non-pressure chronic ulcer of other part of left foot with fat layer exposed (3) Other specified peripheral vascular diseases: CODE(S): I73.89 - Other specified peripheral vascular diseases 08/24/24 5065 <Electronically signed by Rasta Mazareigos DPM> Cosigner Signature (if applicable): CC: ~ Signed [facility] Work Phone: [phone] Progress note Author Rasta Mazariegos [facility] Note Date/Time August 17, 2024 3:09 pm [facility] [address] [place] [address] Progress Note - Wound Care 08/17/24 1508 MR#: [id number] Acct: [id number] Name: OSWALDO CORLEY Rep #:[id number] : 1940 84 From: Rasta Carr PM PCP: Dr. Mei Cummins MD Status:RE G RCR Location: History of Present Illness Date of Service: 08/17/24 Chief Complaint: Left medial ankle ulcer History of Wound: Patient is a very pleasant 83 year old male with a left medialankle ulcer that he has been seeing residential service technician, Dr. Viveros. Patient has a significant history for COPD that he sees Palliative care to help manage. He is on home O2. He also has a history of Prostate CA, Squamous carcinoma of left lung, HTN, anxiety and depression, AAA without rupture, CAD, coronary artery stent placement (multiple), CABG x 3, former smoker, PAD, PBH, and pulmonary embolism- on anticoagulants, and hyperlipidemia. He has had arterial studies inthe past and had some vascular procedures (by Dr. Vigil) to his left leg. He denies hx of diabetes. His providers are all with [facility]. He has had this left medial ankle ulcer for 3 months. He has been placing Santyl covered with [place] SAP. There has not been much improvement to this area. He states that he was referred to see us by [facility] and that Dr. Viveros also suggested he get a second opinion. He is on a new medication that his states is an antibiotic but they are unsure of the name. He denies fever, chills, nausea or vomiting. He comes in today for further evaluation and treatment. Progress of Wound: Stable slow healing wound to the left ankle and great toe. Subjective Subjective Mr. Corely is a 84-year-old male presenting to the wound care center today follow-up evaluation of full-thickness wound to the medial ankle and first metatarsophalangeal joint of the left lower extremity. He left the dressing clean dry and intact. He states the graft stayed on all week. He elevates as instructed. He denies any pain to left lower extremity. He denies trauma. Denies constitutional symptoms. No other pedal complaints at this time. Objective Data Objective Data Vital Signs: Vital Signs Temp Pulse Resp BP Pulse Ox O2 Del Method O2 Flow Rate 97 F L 80 22 H 120/63 93 Nasal Cannula 5 08/17/24 14:00 08/17/24 14:00 08/17/24 14:00 08/17/24 14:00 08/17/24 14:00 08/17/24 14:00 08/17/24 14:00 Oxygen Flow Rate (L/min) 5 Oxygen Delivery Method Nasal Cannula Weight: 74.843 kg Body Mass Index (BMI) 22.4 Lab / Micro Data Micro: Microbiology 07/13/24 14:15 Ulcer, Decubitus - Left Foot Gram Stain - Final 07/13/24 14:15 Ulcer, Decubitus - Left Foot Wound Culture - Final Staphylococcus capitis 07/13/24 14:15 Ulcer, Decubitus - Left Foot Anaerobic Culture - Final No growth in 5 days. Physical Exam Narrative Vascular: DP and PT pulses are faintly palpable. CFT is brisk. No erythema appreciated. Neurological: Light touch intact. Patient does despond painful stimuli. Dermatological: Full-thickness wound to the dorsal aspect left foot first metatarsal phalangeal joint measuring 0.1 x 0.1 x 0.1 cm. Full-thickness wound to the medial ankle of the left lower extremity measuring 1.2 x 1.0 x 0.2 cm. Negative probe to bone. No erythema. Excisional debridement down to including subcutaneous tissue, fascia and muscle to the left lower extremity full-thickness wound with a number 3 mm dermal curette and #15 blade without incident. Predebridement measurement was 1.1 x 0.9 x 0.1 cm. Postdebridement measurement is 1.2 x 1.0 x 0.2 cm. Epi cord 2.0 x 3.0 cm was applied to the left full-thickness ulceration with 100% use. Ninth application. The graft site was free and clear of any infection. The wound/skin graft substitute was dressed with nonadherent bandagesecured in place with Steri-Strips followed by bolster dressing as well as a double layer Tubigrip. Musculoskeletal: No pain to palpation to full-thickness wound to the left lower extremity medial ankle. No pain with calf pressure. Debridement Note Debridement Note Debridement Free Text: Excisional debridement down to including subcutaneous tissue, fascia and muscle to the left lower extremity full-thickness wound with a number 3 mm dermal curette and #15 blade without incident. Predebridement measurement was 1.1 x 0.9 x 0.1 cm. Postdebridement measurement is 1.2 x 1.0 x 0.2 cm. Epi cord 2.0 x 3.0 cm was applied to the left full-thickness ulceration with 100% use. Ninth application. The graft site was free and clear of any infection. The wound/skin graft substitute was dressed with nonadherent bandagesecured in place with Steri-Strips followed by bolster dressing as well as a double layer Tubigrip. Post-Debridement Measurements and Additional Note: Post-Debridement Measurements/Treatment - Nurse 1 - General Ulcer Assessment Start: 08/03/24 13:56 Freq: Status: Active Protocol: MILENA Activity Type Activity Date Activity User E-sign Co-sign Detail Recorded Client Recorded Date Recorded By Document 08/03/24 13:57 UT [id number] 08/03/24 14:04 UT Document 08/10/24 13:57 [id number] 08/10/24 14:02 Document 08/17/24 14:00 UT [id number] 08/17/24 14:05 UT 08/03/24 08/10/24 08/17/24 13:57 13:57 14:00 - Today's Visit Information Type of service Follow-up Visit Follow-up Visit Follow-up Visit (Physician/LEGAL STENOGRAPHER (Physician/LEGAL STENOGRAPHER (Physician/LEGAL STENOGRAPHER ) ) ) Arrival Mode Ambulatory Wheelchair Ambulatory, Wheelchair Accompanied by Patient Identification Verified (Name & Yes Yes Yes ) Patient Requires Transmission-Based No Precautions Safety Precautions Fall Prevention Fall Prevention Height and Weight Body Mass Index (BMI) 22.4 22.4 22.4 BMI Classification Normal Normal Normal Vital Signs Temperature (97.8 F-99.1 F) 97 F L 96.7 F L 97 F L Temperature Source Temporal Temporal Temporal Pulse Rate (60-100) 65 72 80 Pulse Location Monitor Monitor Monitor Respiratory Rate (12-18) 18 16 22 H Respiratory rate source Observation Observation Monitor Pulse Oximetry 97 93 Oxygen Delivery Method Nasal Cannula Room Air Nasal Cannula O2 L/MIN (L/min) 3 5 Blood Pressure (90/60-120/80) 127/53 H 120/54 L 120/63 Blood Pressure Mean (mm Hg) 77 76 82 Source Monitor Monitor Monitor Position Sitting Sitting Semi-Fowlers Blood Pressure Location Right Arm Left Arm Right Arm History Since Last Visit- (Skip if this is Patient's initial visit) Have you changed medications since your No last visit? Any new allergies or adverse reactions No Had a fall/change in ADL's that may No increase risk of falls Signs or symptoms of abuse and/or No neglect since last visit Have you been in the hospital since your No last visit? Has dressing in place as prescribed Yes Yes Yes Has compression in place as prescribed Yes Yes Yes Has offloadiing in place as prescribed Yes N/A Yes Experienced any changes in pain level or Yes No Yes management Left Footwear Regular Shoe Regular Shoe Regular Shoe Right Footwear Regular Shoe Regular Shoe Regular Shoe Pain Scale: 0-10 Numeric Is Patient Pain Free? Yes Yes Yes - Nurse 1 - General Ulcer Measurement Start: 08/03/24 13:56 Freq: Status: Active Protocol: Activity Type Activity Date Activity User E-sign Co-sign Detail Recorded Client Recorded Date Recorded By Document 08/03/24 13:57 UT [id number] 08/03/24 14:04 UT Document 08/10/24 13:57 [id number] 08/10/24 14:02 Document 08/17/24 14:00 UT [id number] 08/17/24 14:05 UT 08/03/24 08/10/24 08/17/24 13:57 13:57 14:00 Wound Center Nurse 1 3-left foot -Current Size (cm) - Length 0.7 0.5 0.1 -Current Size (cm) - Width 2.0 2.0 0.1 -Current Size (cm) - Depth 0.1 0.1 0.1 -Total Square Cm 1.40 1.00 0.01 -Date of Last Picture (Recall this 08/10/24 field) -Photo Taken No Yes No -Epithelialization None Present -Tunneling No No No -Undermining/Tunneling No No No -Circular Undermining No No No -Exudate Amt Medium Small None Present -Exudate Type Purulent Yellow/Green -Wound Margin Flat & Intact Distinct, Flat & Intact Outline Attached -Granulation Amt Large (67-100%) Medium (34-66%) None Present (0 %) -Granulation Quality Pale,[place] Red -Slough/Fibrin Yes No -Necrosis Amt Small (1-33%) Medium (34-66%) -Necrotic Tissue Type Adherent Slough -Texture (Bell-wound Skin Appearance) Assessed Assessed Assessed -Moisture (Bell-wound Skin Appearance) Assessed Assessed Assessed -Color (Bell-wound Skin Appearance) Assessed Assessed Assessed -Temperature (Bell-wound Skin No Abnormality No Abnormality No Abnormality Appearance) (Pt Warm) (Pt Warm) (Pt Warm) -Tenderness on Palpation (Bell-wound No Yes No Skin Appearance) -Ulcer Cleansing Soap and Water Soap and Water Soap and Water -Foul Odor after Cleansing No No No -Anesthetic Used 4% Lidocaine 5% Lidocaine Solution Gel #1- L MEDIAL ANKLE -Current Size (cm) - Length 1 1.1 1.1 -Current Size (cm) - Width 1.5 1.0 1.1 -Current Size (cm) - Depth 0.2 0.6 0.2 -Total Square Cm 1.5 1.10 1.21 -Date of Last Picture (Recall this 08/10/24 field) -Photo Taken No Yes No -Epithelialization None Present -Tunneling No No No -Undermining/Tunneling No No No -Circular Undermining No No No -Change in Wound Grade/Stage No -Exudate Amt Medium Small -Exudate Type Purulent Purulent -Wound Margin Flat & Intact Distinct, Thickened & Outline Rolled Under Attached -Granulation Amt Large (67-100%) None Present (0 Small (1-33%) %) -Granulation Quality Pale,[place] Pale,[place] -Slough/Fibrin Yes -Necrosis Amt Medium (34-66%) Large (67-100%) Large (67-100%) -Necrotic Tissue Type Adherent Slough Adherent Slough Adherent Slough -Texture (Bell-wound Skin Appearance) Assessed Assessed Assessed -Moisture (Bell-wound Skin Appearance) Assessed Assessed Assessed -Color (Bell-wound Skin Appearance) Assessed Assessed Assessed -Temperature (Bell-wound Skin No Abnormality No Abnormality No Abnormality Appearance) (Pt Warm) (Pt Warm) (Pt Warm) -Tenderness on Palpation (Bell-wound No Yes No Skin Appearance) -Ulcer Cleansing Soap and Water Soap and Water Soap and Water -Foul Odor after Cleansing No No No -Anesthetic Used 4% Lidocaine 5% Lidocaine 5% Lidocaine Solution Gel Gel Lower Limb Edema Present No Left Calf (cm) 29.1 Left Ankle (cm) 24 WC - Nurse 2 - General Ulcer CM Notes Start: 08/03/24 13:56 Freq: Status: Active Protocol: Activity Type Activity Date Activity User E-sign Co-sign Detail Recorded Client Recorded Date Recorded By Document 08/03/24 14:12 [id number] 08/03/24 14:21 Edit Result 08/03/24 14:12 JF (1) 000 08/09/24 15:06 JF Document 08/10/24 14:05 [id number] 08/10/24 14:12 Document 08/17/24 14:14 [id number] 08/17/24 14:19 JF (1) #1- L MEDIAL ANKLE - Apply Skin Sub - 1st 25 sq cm - Legs => 1 08/03/24 08/10/24 08/17/24 14:12 14:05 14:14 Wound Center Nurse 2 3-left foot -Time 14:13 14:05 -Correct Patient Yes Yes Yes -Correct Side, Site, Position Yes Yes No -Correct Procedure Yes Yes No -Procedure Performed Yes Yes No -Type of Procedure Debridement Debridement -Clinical Debridement Subcutaneous Subcutaneous -Tissue Removed Subcutaneous Subcutaneous -Post Debridement (cm) - Length 0.7 0.6 0.1 -Post Debridement (cm) - Width 2.0 1.8 0.1 -Post Debridement (cm) - Depth 0.1 0.1 0.1 -Total Square (Post) (cm) 1.40 1.08 0.01 -Area of Debridement (cm) - Length 0.7 0.6 0.1 -Area of Debridement (cm) - Width 2.0 1.8 0.1 -Total Square (Area) (cm) 1.40 1.08 0.01 -Tunneling No No -Undermining/Tunneling No No -Circular Undermining No No -Wound/Ulcer Outcome Not Healed Not Healed Not Healed -Ulcer Cleansing Rinsed/ Rinsed/ Irrigated with Irrigated with Saline Saline -Foul Odor after Cleansing No No -Bioengineered Tissue No No -Bleeding Controlled with Pressure Pressure -Treatment Response Procedure Procedure Tolerated Well Tolerated Well -Offloading No No -Debridement - Subq, 1st 20sq cm Yes Yes #1- L MEDIAL ANKLE -Time 14:13 14:05 14:14 -Correct Patient Yes Yes Yes -Correct Side, Site, Position Yes Yes Yes -Correct Procedure Yes Yes Yes -Procedure Performed Yes Yes Yes -Type of Procedure Debridement Debridement Debridement -Clinical Debridement Bone Muscle / Fascia Muscle / Fascia -Tissue Removed Non-viable Muscle Muscle tissue -Post Debridement (cm) - Length 1 0.9 1.2 -Post Debridement (cm) - Width 1 1.0 1.0 -Post Debridement (cm) - Depth 0.4 0.2 0.2 -Total Square (Post) (cm) 1 0.90 1.20 -Area of Debridement (cm) - Length 1 0.9 1.2 -Area of Debridement (cm) - Width 1 1.0 1.0 -Total Square (Area) (cm) 1 0.90 1.20 -Tunneling No No No -Undermining/Tunneling No No No -Circular Undermining No No No -Wound/Ulcer Outcome Not Healed Not Healed Not Healed -Ulcer Cleansing Rinsed/ Rinsed/ Rinsed/ Irrigated with Irrigated with Irrigated with Saline Saline Saline -Foul Odor after Cleansing No No No -Bioengineered Tissue Yes Yes Yes -Type of Bioengineered Tissue Epicord Epicord Epicord -Expiration Date 10/31/28 10/31/28 11/30/28 -Product Lot Number [id number] -Percent Used 100 100 100 -Lot number of Saline Used [id number] -Bleeding Controlled with Pressure Pressure Pressure -Treatment Response Procedure Procedure Procedure Tolerated Well Tolerated Well Tolerated Well -Offloading No No No -Debridement - Muscle / Fascia, 1st No No 20sq cm -Debridement - Bone, 1st 20sq cm No -Apply Skin Sub - 1st 25 sq cm - Legs 1 1 1 -Epicord Application 1-4 (per sq cm) 6 6 6 Pain Scale: 0-10 Numeric Is Patient Pain Free? Yes Yes Yes WC - Nurse 3 - General Ulcer D/C NN Start: 08/03/24 13:56 Freq: Status: Active Protocol: Activity Type Activity Date Activity User E-sign Co-sign Detail Recorded Client Recorded Date Recorded By Document 08/03/24 14:38 MT [id number] 08/03/24 14:39 MT Document 08/10/24 14:23 DL [id number] 08/10/24 14:24 DL Document 08/17/24 14:29 ML [id number] 08/17/24 14:29 ML 08/03/24 08/10/24 08/17/24 14:38 14:23 14:29 Wound Care Center Nurse 3 3-left foot -Foul Odor after Cleansing No -Other Dressing Epifix NÉSTOR -Primary Dressing Covered/Secured with Dry Gauze,Dry Dry Gauze & Dry Gauze,Dry Gauze & Roll Roll Gauze, Gauze & Roll Gauze,Secured Secured with Gauze,Secured with Tape Tape with Tape #1- L MEDIAL ANKLE -Foul Odor after Cleansing No -Other Dressing Epifix -Primary Dressing Covered/Secured with Dry Gauze,Dry Dry Gauze & Dry Gauze & Gauze & Roll Roll Gauze, Roll Gauze, Gauze,Secured Secured with Secured with with Tape Tape Tape -Other Covering tubigrip NÉSTOR LLE -Compression Wrap Néstor Wrap Treatment Response Procedure Tolerated Well Pain Scale: 0-10 Numeric Is Patient Pain Free? 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 All findings were discussed with the patient. All questions were answered to the patient's satisfaction. Excisional debridement down to including subcutaneous tissue, fascia and muscle to the left lower extremity full-thickness wound with a number 3 mm dermal curette and #15 blade without incident. Predebridement measurement was 1.1 x 0.9 x 0.1 cm. Postdebridement measurement is 1.2 x 1.0 x 0.2 cm. Epi cord 2.0 x 3.0 cm was applied to the left full-thickness ulceration with 100% use. Ninth application. The graft site was free and clear of any infection. The wound/skin graft substitute was dressed with nonadherent bandagesecured in place with Steri-Strips followed by bolster dressing as well as a double layer Tubigrip. Educated the patient to keep the dressing clean dry and intact. Continue dietary supplements/Joon twice daily until follow-up. The patient will follow-up with Dr. Mazariegos in 1 week. (2) Non-pressure chronic ulcer of other part of left foot with fat layer exposed: CODE(S): L97.522 - Non-pressure chronic ulcer of other part of left foot with fat layer exposed (3) Other specified peripheral vascular diseases: CODE(S): I73.89 - Other specified peripheral vascular diseases 08/17/24 1509 <Electronically signed by Rasta Mazariegos DPM> Cosigner Signature (if applicable): CC: ~ Signed [facility] Work Phone: [phone] Progress note Author Rasta Mazariegos [facility] Note Date/Time August 10, 2024 2:34 pm [facility] [address] [place] [id number] Progress Note - Wound Care 08/10/24 1429 MR#: [id number] Acct: [id number] Name: OSWALDO CORLEY Rep #:[id number] : 1940 84 From: Rasta Carr PM PCP: Dr. Mei Cummins MD Status:[facility] Location: History of Present Illness Date of Service: 08/10/24 Chief Complaint: Left medial ankle ulcer History of Wound: Patient is a very pleasant 83 year old male with a left medialankle ulcer that he has been seeing residential service technician, Dr. Viveros. Patient has a significant history for COPD that he sees Palliative care to help manage. He is on home O2. He also has a history of Prostate CA, Squamous carcinoma of left lung, HTN, anxiety and depression, AAA without rupture, CAD, coronary artery stent placement (multiple), CABG x 3, former smoker, PAD, PBH, and pulmonary embolism- on anticoagulants, and hyperlipidemia. He has had arterial studies inthe past and had some vascular procedures (by Dr. Vigil) to his left leg. He denies hx of diabetes. His providers are all with [facility]. He has had this left medial ankle ulcer for 3 months. He has been placing Santyl covered with [place] SAP. There has not been much improvement to this area. He states that he was referred to see us by [facility] and that Dr. Viveros also suggested he get a second opinion. He is on a new medication that his states is an antibiotic but they are unsure of the name. He denies fever, chills, nausea or vomiting. He comes in today for further evaluation and treatment. Progress of Wound: Stable slow healing wound to the left ankle and great toe. Subjective Subjective Mr. Corley is a 84-year-old male presenting to the wound care center today follow-up evaluation of full-thickness wound to the medial ankle and first metatarsophalangeal joint of the left lower extremity. He left the dressing clean dry and intact. He states the graft stayed on all week. He elevates as instructed. He denies any pain to left lower extremity. He denies trauma. Denies constitutional symptoms. No other pedal complaints at this time. Objective Data Objective Data Vital Signs: Vital Signs Temp Pulse Resp BP Pulse Ox O2 Del Method O2 Flow Rate 96.7 F L 72 16 120/54 L 97 Room Air 3 08/10/24 13:57 08/10/24 13:57 08/10/24 13:57 08/10/24 13:57 08/03/24 13:57 08/10/24 13:57 08/03/24 13:57 Oxygen Flow Rate (L/min) 3 Oxygen Delivery Method Room Air Weight: 74.843 kg Body Mass Index (BMI) 22.4 Lab / Micro Data Micro: Microbiology 07/13/24 14:15 Ulcer, Decubitus - Left Foot Gram Stain - Final 07/13/24 14:15 Ulcer, Decubitus - Left Foot Wound Culture - Final Staphylococcus capitis 07/13/24 14:15 Ulcer, Decubitus - Left Foot Anaerobic Culture - Final No growth in 5 days. Physical Exam Narrative Vascular: DP and PT pulses are faintly palpable. CFT is brisk. No erythema appreciated. Neurological: Light touch intact. Patient does despond painful stimuli. Dermatological: Full-thickness wound to the dorsal aspect left foot first metatarsal phalangeal joint measuring 0.6 x 1.8 x 0.1 cm. Wound base is granular.. Full-thickness wound to the medial ankle of the left lower extremitymeasuring 0.9 x 1.0 x 0.2 cm. Negative probe to bone. No erythema. Excisional debridement down to including subcutaneous tissue, fascia and muscle to the left lower extremity full-thickness wound with a number 3 mm dermal curette and #15 blade without incident. Predebridement measurement was 0.8 x 0.8 x 0.1 cm. Postdebridement measurement is 0.9 x 1.0 x 0.2 cm. Epi cord 2.0 x 3.0 cm was applied to the left full-thickness ulceration with 100% use. 8 application. The graft site was free and clear of any infection. The wound/skin graft substitute was dressed with nonadherent bandage secured in place with Steri-Strips followed by bolster dressing as well as a double layer Tubigrip. Excisional debridement down to and including subcutaneous tissue to the sanguinous crust to the dorsal aspect of the first metatarsophalangeal joint of the left foot done without incident with a sterile pickup and 15 blade. Predebridement measurement was 0.5 x 1.7 x 0.1 cm. Postdebridement measurement was 0.6 x 1.8 x 0.1 cm. Musculoskeletal: No pain to palpation to full-thickness wound to the left lower extremity medial ankle. No pain with calf pressure. Debridement Note Debridement Note Debridement Free Text: Excisional debridement down to including subcutaneous tissue, fascia and muscle to the left lower extremity full-thickness wound with a number 3 mm dermal curette and #15 blade without incident. Predebridement measurement was 0.8 x 0.8 x 0.1 cm. Postdebridement measurement is 0.9 x 1.0 x 0.2 cm. Epi cord 2.0 x 3.0 cm was applied to the left full-thickness ulceration with 100% use. 8 application. The graft site was free and clear of any infection. The wound/skin graft substitute was dressed with nonadherent bandage secured in place with Steri-Strips followed by bolster dressing as well as a double layer Tubigrip. Excisional debridement down to and including subcutaneous tissue to the sanguinous crust to the dorsal aspect of the first metatarsophalangeal joint of the left foot done without incident with a sterile pickup and 15 blade. Predebridement measurement was 0.5 x 1.7 x 0.1 cm. Postdebridement measurement was 0.6 x 1.8 x 0.1 cm. Post-Debridement Measurements and Additional Note: Post-Debridement Measurements/Treatment - Nurse 1 - General Ulcer Assessment Start: 08/03/24 13:56 Freq: Status: Active Protocol: MILENA Activity Type Activity Date Activity User E-sign Co-sign Detail Recorded Client Recorded Date Recorded By Document 08/03/24 13:57 MT [id number] 08/03/24 14:04 MT Document 08/10/24 13:57 [id number] 08/10/24 14:02 08/03/24 08/10/24 13:57 13:57 - Today's Visit Information Type of service Follow-up Visit Follow-up Visit (Physician/LEGAL STENOGRAPHER (Physician/LEGAL STENOGRAPHER ) ) Arrival Mode Ambulatory Wheelchair Accompanied by Patient Identification Verified (Name & Yes Yes ) Patient Requires Transmission-Based No Precautions Safety Precautions Fall Prevention Height and Weight Body Mass Index (BMI) 22.4 22.4 BMI Classification Normal Normal Vital Signs Temperature (97.8 F-99.1 F) 97 F L 96.7 F L Temperature Source Temporal Temporal Pulse Rate (60-100) 65 72 Pulse Location Monitor Monitor Respiratory Rate (12-18) 18 16 Respiratory rate source Observation Observation Pulse Oximetry 97 Oxygen Delivery Method Nasal Cannula Room Air O2 L/MIN (L/min) 3 Blood Pressure (90/60-120/80) 127/53 H 120/54 L Blood Pressure Mean (mm Hg) 77 76 Source Monitor Monitor Position Sitting Sitting Blood Pressure Location Right Arm Left Arm History Since Last Visit- (Skip if this is Patient's initial visit) Have you changed medications since your No last visit? Any new allergies or adverse reactions No Had a fall/change in ADL's that may No increase risk of falls Signs or symptoms of abuse and/or No neglect since last visit Have you been in the hospital since your No last visit? Has dressing in place as prescribed Yes Yes Has compression in place as prescribed Yes Yes Has offloadiing in place as prescribed Yes N/A Experienced any changes in pain level or Yes No management Left Footwear Regular Shoe Regular Shoe Right Footwear Regular Shoe Regular Shoe Pain Scale: 0-10 Numeric Is Patient Pain Free? Yes Yes WC - Nurse 1 - General Ulcer Measurement Start: 08/03/24 13:56 Freq: Status: Active Protocol: Activity Type Activity Date Activity User E-sign Co-sign Detail Recorded Client Recorded Date Recorded By Document 08/03/24 13:57 MT [id number] 08/03/24 14:04 MT Document 08/10/24 13:57 [id number] 08/10/24 14:02 08/03/24 08/10/24 13:57 13:57 Wound Center Nurse 1 3-left foot -Current Size (cm) - Length 0.7 0.5 -Current Size (cm) - Width 2.0 2.0 -Current Size (cm) - Depth 0.1 0.1 -Total Square Cm 1.40 1.00 -Date of Last Picture (Recall this 08/10/24 field) -Photo Taken No Yes -Epithelialization None Present -Tunneling No No -Undermining/Tunneling No No -Circular Undermining No No -Exudate Amt Medium Small -Exudate Type Purulent Yellow/Green -Wound Margin Flat & Intact Distinct, Outline Attached -Granulation Amt Large (67-100%) Medium (34-66%) -Granulation Quality Pale,[place] Red -Slough/Fibrin Yes -Necrosis Amt Small (1-33%) Medium (34-66%) -Necrotic Tissue Type Adherent Slough -Texture (Ebll-wound Skin Appearance) Assessed Assessed -Moisture (Bell-wound Skin Appearance) Assessed Assessed -Color (Bell-wound Skin Appearance) Assessed Assessed -Temperature (Bell-wound Skin No Abnormality No Abnormality Appearance) (Pt Warm) (Pt Warm) -Tenderness on Palpation (Bell-wound No Yes Skin Appearance) -Ulcer Cleansing Soap and Water Soap and Water -Foul Odor after Cleansing No No -Anesthetic Used 4% Lidocaine 5% Lidocaine Solution Gel #1- L MEDIAL ANKLE -Current Size (cm) - Length 1 1.1 -Current Size (cm) - Width 1.5 1.0 -Current Size (cm) - Depth 0.2 0.6 -Total Square Cm 1.5 1.10 -Date of Last Picture (Recall this 08/10/24 field) -Photo Taken No Yes -Epithelialization None Present -Tunneling No No -Undermining/Tunneling No No -Circular Undermining No No -Change in Wound Grade/Stage No -Exudate Amt Medium -Exudate Type Purulent -Wound Margin Flat & Intact Distinct, Outline Attached -Granulation Amt Large (67-100%) None Present (0 %) -Granulation Quality Pale,[place] -Slough/Fibrin Yes -Necrosis Amt Medium (34-66%) Large (67-100%) -Necrotic Tissue Type Adherent Slough Adherent Slough -Texture (Bell-wound Skin Appearance) Assessed Assessed -Moisture (Bell-wound Skin Appearance) Assessed Assessed -Color (Bell-wound Skin Appearance) Assessed Assessed -Temperature (Bell-wound Skin No Abnormality No Abnormality Appearance) (Pt Warm) (Pt Warm) -Tenderness on Palpation (Bell-wound No Yes Skin Appearance) -Ulcer Cleansing Soap and Water Soap and Water -Foul Odor after Cleansing No No -Anesthetic Used 4% Lidocaine 5% Lidocaine Solution Gel Lower Limb Edema Present No Left Calf (cm) 29.1 Left Ankle (cm) 24 WC - Nurse 2 - General Ulcer CM Notes Start: 08/03/24 13:56 Freq: Status: Active Protocol: Activity Type Activity Date Activity User E-sign Co-sign Detail Recorded Client Recorded Date Recorded By Document 08/03/24 14:12 [id number] 08/03/24 14:21 Edit Result 08/03/24 14:12 JF (1) 000 08/09/24 15:06 Document 08/10/24 14:05 [id number] 08/10/24 14:12 (1) #1- L MEDIAL ANKLE - Apply Skin Sub - 1st 25 sq cm - Legs => 1 08/03/24 08/10/24 14:12 14:05 Wound Center Nurse 2 3-left foot -Time 14:13 14:05 -Correct Patient Yes Yes -Correct Side, Site, Position Yes Yes -Correct Procedure Yes Yes -Procedure Performed Yes Yes -Type of Procedure Debridement Debridement -Clinical Debridement Subcutaneous Subcutaneous -Tissue Removed Subcutaneous Subcutaneous -Post Debridement (cm) - Length 0.7 0.6 -Post Debridement (cm) - Width 2.0 1.8 -Post Debridement (cm) - Depth 0.1 0.1 -Total Square (Post) (cm) 1.40 1.08 -Area of Debridement (cm) - Length 0.7 0.6 -Area of Debridement (cm) - Width 2.0 1.8 -Total Square (Area) (cm) 1.40 1.08 -Tunneling No No -Undermining/Tunneling No No -Circular Undermining No No -Wound/Ulcer Outcome Not Healed Not Healed -Ulcer Cleansing Rinsed/ Rinsed/ Irrigated with Irrigated with Saline Saline -Foul Odor after Cleansing No No -Bioengineered Tissue No No -Bleeding Controlled with Pressure Pressure -Treatment Response Procedure Procedure Tolerated Well Tolerated Well -Offloading No No -Debridement - Subq, 1st 20sq cm Yes Yes #1- L MEDIAL ANKLE -Time 14:13 14:05 -Correct Patient Yes Yes -Correct Side, Site, Position Yes Yes -Correct Procedure Yes Yes -Procedure Performed Yes Yes -Type of Procedure Debridement Debridement -Clinical Debridement Bone Muscle / Fascia -Tissue Removed Non-viable Muscle tissue -Post Debridement (cm) - Length 1 0.9 -Post Debridement (cm) - Width 1 1.0 -Post Debridement (cm) - Depth 0.4 0.2 -Total Square (Post) (cm) 1 0.90 -Area of Debridement (cm) - Length 1 0.9 -Area of Debridement (cm) - Width 1 1.0 -Total Square (Area) (cm) 1 0.90 -Tunneling No No -Undermining/Tunneling No No -Circular Undermining No No -Wound/Ulcer Outcome Not Healed Not Healed -Ulcer Cleansing Rinsed/ Rinsed/ Irrigated with Irrigated with Saline Saline -Foul Odor after Cleansing No No -Bioengineered Tissue Yes Yes -Type of Bioengineered Tissue Epicord Epicord -Expiration Date 10/31/28 10/31/28 -Product Lot Number [id number] -Percent Used 100 100 -Lot number of Saline Used [id number] -Bleeding Controlled with Pressure Pressure -Treatment Response Procedure Procedure Tolerated Well Tolerated Well -Offloading No No -Debridement - Muscle / Fascia, 1st No 20sq cm -Debridement - Bone, 1st 20sq cm No -Apply Skin Sub - 1st 25 sq cm - Legs 1 1 -Epicord Application 1-4 (per sq cm) 6 6 Pain Scale: 0-10 Numeric Is Patient Pain Free? Yes Yes WC - Nurse 3 - General Ulcer D/C NN Start: 06/04/25 13:56 Freq: Status: Active Protocol: Activity Type Activity Date Activity User E-sign Co-sign Detail Recorded Client Recorded Date Recorded By Document 08/03/24 14:38 MT [id number] 08/03/24 14:39 MT Document 08/10/24 14:23 DL [id number] 08/10/24 14:24 DL 08/03/24 08/10/24 14:38 14:23 Wound Care Center Nurse 3 3-left foot -Foul Odor after Cleansing No -Other Dressing Epifix -Primary Dressing Covered/Secured with Dry Gauze,Dry Dry Gauze & Gauze & Roll Roll Gauze, Gauze,Secured Secured with with Tape Tape #1- L MEDIAL ANKLE -Foul Odor after Cleansing No -Other Dressing Epifix -Primary Dressing Covered/Secured with Dry Gauze,Dry Dry Gauze & Gauze & Roll Roll Gauze, Gauze,Secured Secured with with Tape Tape -Other Covering tubigrip LLE -Compression Wrap Néstor Wrap Treatment Response Procedure Tolerated Well Pain Scale: 0-10 Numeric Is Patient Pain Free? 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 All findings were discussed with the patient. All questions were answered to the patient's satisfaction. Excisional debridement down to including subcutaneous tissue, fascia and muscle to the left lower extremity full-thickness wound with a number 3 mm dermal curette and #15 blade without incident. Predebridement measurement was 0.8 x 0.8 x 0.1 cm. Postdebridement measurement is 0.9 x 1.0 x 0.2 cm. Epi cord 2.0 x 3.0 cm was applied to the left full-thickness ulceration with 100% use. 8 application. The graft site was free and clear of any infection. The wound/skin graft substitute was dressed with nonadherent bandage secured in place with Steri-Strips followed by bolster dressing as well as a double layer Tubigrip. Excisional debridement down to and including subcutaneous tissue to the sanguinous crust to the dorsal aspect of the first metatarsophalangeal joint of the left foot done without incident with a sterile pickup and 15 blade. Predebridement measurement was 0.5 x 1.7 x 0.1 cm. Postdebridement measurement was 0.6 x 1.8 x 0.1 cm. Educated the patient to keep the dressing clean dry and intact. Continue dietary supplements/Joon twice daily until follow-up. The patient will follow-up with Dr. Mazariegos in 1 week. (2) Non-pressure chronic ulcer of other part of left foot with fat layer exposed: CODE(S): L97.522 - Non-pressure chronic ulcer of other part of left foot with fat layer exposed (3) Other specified peripheral vascular diseases: CODE(S): I73.89 - Other specified peripheral vascular diseases 08/10/24 1434 <Electronically signed by Rasta Mazariegos DPM> Cosigner Signature (if applicable): CC: ~ Signed [facility] Work Phone: [phone]) 216-580606-09-2025 Telephone encounter Note* Telephone Encounter - Tyrell Lamar LPN - 08/08/2024 9:29 AM EDT [facility] 06/24/24 Patient phones requesting refills as follows: Requested Prescriptions Pending Prescriptions Disp Refills SPIRIVA RESPIMAT 2.5 mcg/actuation inhaler 1 each 5 Sig: Inhale 2 puffs as instructed once daily. Please review and advise. Tyrell Lamar LPN [facility]06-09-2025 Miscellaneous Notes* Telephone Encounter - Tyrell Lamar LPN - 08/08/2024 9:29 AM EDT [facility] 06/24/24 Patient phones requesting refills as follows: Requested Prescriptions Pending Prescriptions Disp Refills SPIRIVA RESPIMAT 2.5 mcg/actuation inhaler 1 each 5 Sig: Inhale 2 puffs as instructed once daily. Please review and advise. Tyrell Lamar LPN documented in this encounterProm[facility]06-[facility]25 Progress note Author Rasta Mazariegos [facility] Note Date/Time August 03, 2024 2:39p m [facility] [address] [place] [address] Progress Note - Wound Care 08/03/24 1433 MR#: [id number] Acct: [id number] Name: OSWALDO CORLEY Rep #:[id number] : 1940 84 From: Rasta Carr PM PCP: Dr. Mei Cummins MD Status:RE G RCR Location: History of Present Illness Date of Service: 08/03/24 Chief Complaint: Left medial ankle ulcer History of Wound: Patient is a very pleasant 83 year old male with a left medialankle ulcer that he has been seeing residential service technician, Dr. Viveros. Patient has a significant history for COPD that he sees Palliative care to help manage. He is on home O2. He also has a history of Prostate CA, Squamous carcinoma of left lung, HTN, anxiety and depression, AAA without rupture, CAD, coronary artery stent placement (multiple), CABG x 3, former smoker, PAD, PBH, and pulmonary embolism- on anticoagulants, and hyperlipidemia. He has had arterial studies inthe past and had some vascular procedures (by Dr. Vigil) to his left leg. He denies hx of diabetes. His providers are all with [facility]. He has had this left medial ankle ulcer for 3 months. He has been placing Santyl covered with [place] SAP. There has not been much improvement to this area. He states that he was referred to see us by [facility] and that Dr. Viveros also suggested he get a second opinion. He is on a new medication that his states is an antibiotic but they are unsure of the name. He denies fever, chills, nausea or vomiting. He comes in today for further evaluation and treatment. Progress of Wound: Stable slow healing wound to the left ankle and great toe. Subjective Subjective Mr. Corley is a 84-year-old male presenting to the wound care center today for follow-up evaluation of full-thickness wound to the left medial ankle and big toe joint of the left foot. Patient has been compliant with dressing changes. Patient denies any strikethrough. He continues to offload the area as discussed. Denies trauma. Denies constitutional symptoms. No other pedal complaints at this time. Objective Data Objective Data Vital Signs: Vital Signs Temp Pulse Resp BP Pulse Ox O2 Del Method O2 Flow Rate 97 F L 65 18 127/53 H 97 Nasal Cannula 3 08/03/24 13:57 08/03/24 13:57 08/03/24 13:57 08/03/24 13:57 08/03/24 13:57 08/03/24 13:57 08/03/24 13:57 Oxygen Flow Rate (L/min) 3 Oxygen Delivery Method Nasal Cannula Weight: 74.843 kg Body Mass Index (BMI) 22.4 Lab / Micro Data Micro: Microbiology 07/13/24 14:15 Ulcer, Decubitus - Left Foot Gram Stain - Final 07/13/24 14:15 Ulcer, Decubitus - Left Foot Wound Culture - Final Staphylococcus capitis 07/13/24 14:15 Ulcer, Decubitus - Left Foot Anaerobic Culture - Final No growth in 5 days. Physical Exam Narrative Vascular: DP and PT pulses are faintly palpable. CFT is brisk. Blanchable erythema appreciated to the medial ankle and first metatarsophalangeal joint to the left foot, improving skin temp great is warm to cool from proximal ankles todistal digits left lower extremity. Neurological: Light touch intact. Patient does despond painful stimuli. Dermatological: Full-thickness wound to the dorsal aspect left foot first metatarsal phalangeal joint measuring 0.7 x 2.0 x 0.1 cm. Wound base is granular.. Full-thickness wound to the medial ankle of the left lower extremitymeasuring 1.0 x 1.0 x 0.4 cm. Probe to bone. Blanchable erythema to the periwound of the ankle full-thickness wound with no sign of infection. Excisional debridement down to including subcutaneous tissue, fascia and muscle and bone to the left lower extremity full-thickness wound with a number 3 mm dermal curette and #15 blade without incident. Predebridement measurement was 0.8 x 0.9 x 0.2 cm. Postdebridement measurement is 1.0 x 1.0 x 0.4 cm Epi cord 2.0 x 3.0 cm was applied to the left full-thickness ulceration with 100% use. Seventh application. The graft site was free and clear of any infection. The wound/skin graft substitute was dressed with nonadherent bandagesecured in place with Steri-Strips followed by bolster dressing as well as a double layer Tubigrip. Excisional debridement down to and including subcutaneous tissue to the sanguinous crust to the dorsal aspect of the first metatarsophalangeal joint of the left foot done without incident with a sterile pickup and 15 blade. Predebridement measurement was 0.6 x 1.8 x 0.1 cm. Postdebridement measurement was 0.7 x 2.0 x 0.1 cm. Musculoskeletal: Mild pain to palpation to full-thickness wound to the left lower extremity medial ankle. No pain with calf pressure. Debridement Note Debridement Note Debridement Free Text: Excisional debridement down to including subcutaneous tissue, fascia and muscle and bone to the left lower extremity full-thickness wound with a number 3 mm dermal curette and #15 blade without incident. Predebridement measurement was 0.8 x 0.9 x 0.2 cm. Postdebridement measurement is 1.0 x 1.0 x 0.4 cm Epi cord 2.0 x 3.0 cm was applied to the left full-thickness ulceration with 100% use. Seventh application. The graft site was free and clear of any infection. The wound/skin graft substitute was dressed with nonadherent bandage secured in place with Steri-Strips followed by bolster dressing as well as a double layer Tubigrip. Excisional debridement down to and including subcutaneous tissue to the sanguinous crust to the dorsal aspect of the first metatarsophalangeal joint of the left foot done without incident with a sterile pickup and 15 blade. Predebridement measurement was 0.6 x 1.8 x 0.1 cm. Postdebridement measurement was 0.7 x 2.0 x 0.1 cm. Post-Debridement Measurements and Additional Note: Post-Debridement Measurements/Treatment FABIAN - Nurse 1 - General Ulcer Assessment Start: 08/03/24 13:56 Freq: Status: Active Protocol: MILENA Activity Type Activity Date Activity User E-sign Co-sign Detail Recorded Client Recorded Date Recorded By Document 08/03/24 13:57 UT [id number] 08/03/24 14:04 UT 08/03/24 13:57 - Today's Visit Information Type of service Follow-up Visit (Physician/LEGAL STENOGRAPHER ) Arrival Mode Ambulatory Accompanied by Patient Identification Verified (Name & Yes ) Safety Precautions Fall Prevention Height and Weight Body Mass Index (BMI) 22.4 BMI Classification Normal Vital Signs Temperature (97.8 F-99.1 F) 97 F L Temperature Source Temporal Pulse Rate (60-100) 65 Pulse Location Monitor Respiratory Rate (12-18) 18 Respiratory rate source Observation Pulse Oximetry 97 Oxygen Delivery Method Nasal Cannula O2 L/MIN (L/min) 3 Blood Pressure (90/60-120/80) 127/53 H Blood Pressure Mean (mm Hg) 77 Source Monitor Position Sitting Blood Pressure Location Right Arm History Since Last Visit- (Skip if this is Patient's initial visit) Has dressing in place as prescribed Yes Has compression in place as prescribed Yes Has offloadiing in place as prescribed Yes Experienced any changes in pain level or Yes management Left Footwear Regular Shoe Right Footwear Regular Shoe Pain Scale: 0-10 Numeric Is Patient Pain Free? Yes - Nurse 1 - General Ulcer Measurement Start: 08/03/24 13:56 Freq: Status: Active Protocol: Activity Type Activity Date Activity User E-sign Co-sign Detail Recorded Client Recorded Date Recorded By Document 08/03/24 13:57 UT [id number] 08/03/24 14:04 UT 08/03/24 13:57 Wound Center Nurse 1 3-left foot -Current Size (cm) - Length 0.7 -Current Size (cm) - Width 2.0 -Current Size (cm) - Depth 0.1 -Total Square Cm 1.40 -Photo Taken No -Tunneling No -Undermining/Tunneling No -Circular Undermining No -Exudate Amt Medium -Exudate Type Purulent -Wound Margin Flat & Intact -Granulation Amt Large (67-100%) -Granulation Quality Pale,[place] -Necrosis Amt Small (1-33%) -Necrotic Tissue Type Adherent Slough -Texture (Bell-wound Skin Appearance) Assessed -Moisture (Bell-wound Skin Appearance) Assessed -Color (Bell-wound Skin Appearance) Assessed -Temperature (Bell-wound Skin No Abnormality Appearance) (Pt Warm) -Tenderness on Palpation (Bell-wound No Skin Appearance) -Ulcer Cleansing Soap and Water -Foul Odor after Cleansing No -Anesthetic Used 4% Lidocaine Solution #1- L MEDIAL ANKLE -Current Size (cm) - Length 1 -Current Size (cm) - Width 1.5 -Current Size (cm) - Depth 0.2 -Total Square Cm 1.5 -Photo Taken No -Tunneling No -Undermining/Tunneling No -Circular Undermining No -Exudate Amt Medium -Exudate Type Purulent -Wound Margin Flat & Intact -Granulation Amt Large (67-100%) -Granulation Quality Pale,[place] -Necrosis Amt Medium (34-66%) -Necrotic Tissue Type Adherent Slough -Texture (Bell-wound Skin Appearance) Assessed -Moisture (Bell-wound Skin Appearance) Assessed -Color (Bell-wound Skin Appearance) Assessed -Temperature (Bell-wound Skin No Abnormality Appearance) (Pt Warm) -Tenderness on Palpation (Bell-wound No Skin Appearance) -Ulcer Cleansing Soap and Water -Foul Odor after Cleansing No -Anesthetic Used 4% Lidocaine Solution WC - Nurse 2 - General Ulcer CM Notes Start: 08/03/24 13:56 Freq: Status: Active Protocol: Activity Type Activity Date Activity User E-sign Co-sign Detail Recorded Client Recorded Date Recorded By Document 08/03/24 14:12 SONNY [id number] 08/03/24 14:21 SONNY 08/03/24 14:12 Wound Center Nurse 2 3-left foot -Time 14:13 -Correct Patient Yes -Correct Side, Site, Position Yes -Correct Procedure Yes -Procedure Performed Yes -Type of Procedure Debridement -Clinical Debridement Subcutaneous -Tissue Removed Subcutaneous -Post Debridement (cm) - Length 0.7 -Post Debridement (cm) - Width 2.0 -Post Debridement (cm) - Depth 0.1 -Total Square (Post) (cm) 1.40 -Area of Debridement (cm) - Length 0.7 -Area of Debridement (cm) - Width 2.0 -Total Square (Area) (cm) 1.40 -Tunneling No -Undermining/Tunneling No -Circular Undermining No -Wound/Ulcer Outcome Not Healed -Ulcer Cleansing Rinsed/ Irrigated with Saline -Foul Odor after Cleansing No -Bioengineered Tissue No -Bleeding Controlled with Pressure -Treatment Response Procedure Tolerated Well -Offloading No -Debridement - Subq, 1st 20sq cm Yes #1- L MEDIAL ANKLE -Time 14:13 -Correct Patient Yes -Correct Side, Site, Position Yes -Correct Procedure Yes -Procedure Performed Yes -Type of Procedure Debridement -Clinical Debridement Bone -Tissue Removed Non-viable tissue -Post Debridement (cm) - Length 1 -Post Debridement (cm) - Width 1 -Post Debridement (cm) - Depth 0.4 -Total Square (Post) (cm) 1 -Area of Debridement (cm) - Length 1 -Area of Debridement (cm) - Width 1 -Total Square (Area) (cm) 1 -Tunneling No -Undermining/Tunneling No -Circular Undermining No -Wound/Ulcer Outcome Not Healed -Ulcer Cleansing Rinsed/ Irrigated with Saline -Foul Odor after Cleansing No -Bioengineered Tissue Yes -Type of Bioengineered Tissue Epicord -Expiration Date 10/31/28 -Product Lot Number [id number] -Percent Used 100 -Lot number of Saline Used [id number] -Bleeding Controlled with Pressure -Treatment Response Procedure Tolerated Well -Offloading No -Debridement - Bone, 1st 20sq cm No -Epicord Application 1-4 (per sq cm) 6 Pain Scale: 0-10 Numeric Is Patient Pain Free? 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 All findings were discussed with the patient. All questions were answered to the patient's satisfaction. Excisional debridement down to including subcutaneous tissue, fascia and muscle and bone to the left lower extremity full-thickness wound with a number 3 mm dermal curette and #15 blade without incident. Predebridement measurement was 0.8 x 0.9 x 0.2 cm. Postdebridement measurement is 1.0 x 1.0 x 0.4 cm Epi cord 2.0 x 3.0 cm was applied to the left full-thickness ulceration with 100% use. Seventh application. The graft site was free and clear of any infection. The wound/skin graft substitute was dressed with nonadherent bandagesecured in place with Steri-Strips followed by bolster dressing as well as a double layer Tubigrip. Excisional debridement down to and including subcutaneous tissue to the sanguinous crust to the dorsal aspect of the first metatarsophalangeal joint of the left foot done without incident with a sterile pickup and 15 blade. Predebridement measurement was 0.6 x 1.8 x 0.1 cm. Postdebridement measurement was 0.7 x 2.0 x 0.1 cm. Educated the patient and his regarding the concern for delayed healing and may possibly recommend the patient to vascular surgery with [facility] for further workup and evaluation and possible intervention as needed. We did educate the patient on possible durable medical equipment but due to the rigid contracture of the subtalar joint the patient would not benefit from a AFOat this time. He would benefit from reconstructive surgery however he is not a candidate due to his decreased blood flow. We will continue weekly wound care. The patient will follow-up with Dr. Mazariegos in 1 week. (2) Non-pressure chronic ulcer of other part of left foot with fat layer exposed: CODE(S): L97.522 - Non-pressure chronic ulcer of other part of left foot with fat layer exposed (3) Other specified peripheral vascular diseases: CODE(S): I73.89 - Other specified peripheral vascular diseases 08/03/24 1439 <Electronically signed by Rasta Mazariegos DPM> Cosigner Signature (if applicable): CC: ~ Signed [facility] Work Phone: 1(536) 952-104606-02-2025 Instructions* Patient Instructions* Bela Manzano MD - 08/01/2024 1:30 PM EDT We are stopping the metoprolol documented in this encounter[facility] History of Present illness Narrative* Bela Manzano MD - 08/01/2024 1:00 PM EDT Images from the original note were not included. [facility] CARDIOLOGY Cardiology ([facility]) [address] [id number] OUTPATIENT VISIT DATE 08/01/2024 PRIMARY CARE PHYSICIAN: Mei Cummins [address] [place] [address] HISTORY OF PRESENT ILLNESS: Mr. Corley is a 84 year old gentleman with coronary artery disease and remote coronary bypass grafting, hypertension, dyslipidemia, COPD, with a history of squamous cell carcinoma status post thoracotomy with left lower lobe lung wedge resection and radiation therapy, and peripheral arterial disease with right femoral artery endarterectomy and iliac stent placement in April 2022 who presents for routine follow-up. Patient continues to have baseline shortness of breath and dyspnea on exertion. He is maintained on 4 L nasal oxygen. He has not had chest pain or pressure. He denies symptoms concerning for congestive heart failure including PND orthopnea. He does have some swelling in his anklesmostly on the left side due to his wound. 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 Lung cancer (HCC) Prostate cancer (HCC) Dx Dec 2014, s/p radiation, on hormonal therapy Ulcer of right foot (HCC) 04/30/2022 PAST SURGICAL HISTORY Procedure Laterality Date ANGIOGRAM EXTREMITY COLONOSCOPY N/A 09/29/2023 [facility] COLONOSCOPY N/A 10/07/2023 [facility] EGD W/O [facility] SPEC VARICIES INJ N/A 09/29/2023 [facility] EGD W/O [facility] SPEC VARICIES INJ N/A 10/07/2023 [facility] EGD W/O [facility] SPEC VARICIES INJ N/A 06/04/2024 [facility] LUNG BIOPSY Left needle biopsy LUNG SURGERY HX 02/20/20 lt lung nodule removed PAST SURGICAL HISTORY OF TURP PAST SURGICAL HISTORY OF 03/02/1999 triple bypass PAST SURGICAL HISTORY OF Left 09/04/2022 Skin biopsy left upper cheek face PAST SURGICAL HISTORY OF LE vascular SOCIAL HISTORY Social History Tobacco Use Smoking status: Former Current packs/day: 0.00 Average packs/day: 2.0 packs/day for 40.0 years (80.0 ttl pk-yrs) Types: Cigarettes Start date: 11/08/1962 Quit date: 05/13/2002 Years since quittin.2 Smokeless tobacco: Never Vaping Use Vaping status: Never Used Substance Use Topics Alcohol use: Not Currently Alcohol/week: 3.0 standard drinks of alcohol Types: 3 Cans of beer per week Comment: light beer Drug use: No FAMILY HISTORY Problem Relation Age of Onset Cancer Mother 49 breast, bone Diabetes Father Heart Father Cancer Sister breast Emphysema Sister Smoker Diabetes Brother Heart Brother other (Other) Brother Parkinsons Diabetes Paternal Grandmother Heart Paternal Grandmother ALLERGIES: ALLERGIES Allergen Reactions Imdur [Isosorbide M* Hives Black out and dizziness MEDICATIONS: apixaban (ELIQUIS) 2.5 mg tab(s) Take 1 tablet by mouth two times a day. budesonide (PULMICORT) 0.5 mg/2 mL nebulizer solution Use 2 mL via nebulizer two times a day as needed. INHALE 2 ML BY NEBULIZER OVER 5-15 MINUTES EVERY 12 HOURS. ezetimibe (ZETIA) 10 mg tablet Take 1 tablet by mouth once daily. nitroglycerin sublingual (NITROSTAT) 0.4 mg SL tablet Dissolve 1 tablet under the tongue every 5 minutes as needed. LORazepam (ATIVAN) 1 mg tablet Take 1 tablet by mouth three times a day for 90 days. tamsulosin (FLOMAX) 0.4 mg Take 0.4 mg by mouth once daily. furosemide (LASIX) 20 mg tablet Take 1 tablet by mouth once daily. metoprolol tartrate, short acting, (LOPRESSOR) 25 mg tablet Take 0.5 tablets by mouth two times a day. Take 0.5 tab po bid. albuterol HFA (PROAIR HFA) 90 mcg/actuation inhaler Inhale 2 Puffs as instructed every 4 hours as needed for wheezing/shortness of breath. SPIRIVA RESPIMAT 2.5 mcg/actuation inhaler Inhale 2 Puffs as instructed once daily. OXYGEN, HOME THERAPY, 4-5 L/min by Nasal Cannula route continuous. atorvastatin (LIPITOR) 40 mg tablet Take 1 tablet by mouth once daily. ADVAIR HFA 230-21 mcg/actuation inhaler Inhale 2 Puffs as instructed two times a day. acetaminophen 325 mg cap Take 650 mg by mouth every 8 hours as needed. oxyCODONE IR (ROXICODONE) 5 mg immediate release tablet Take 5 mg by mouth every 4 hours as needed. guaiFENesin (MUCINEX) 600 mg 12 hr tablet Take 1,200 mg by mouth two times a day. DULoxetine (CYMBALTA) 30 mg capsule Take 30 mg by mouth once daily. ondansetron (ZOFRAN) 4 mg tablet Take 4 mg by mouth every 8 hours as needed. aspirin, enteric coated (ASPIRIN, ENTERIC COATED) 81 mg EC tablet Take 81 mg by mouth once daily. roflumilast (DALIRESP) 500 mcg tab Take 1 tablet by mouth once daily. iv contrast (will be provided with radiology test) CT Chest W -Inject, intravenously, once for 1 dose.No IV access, insert saline lock prior to the beginning of sedation, infusion, injection of imaging exam. Discontinue saline lock post exam. If Pt. has a central line or IVAD, may access for administration according to line specific nursing protocol. Once exam is complete flush line and de-accessaccording to line specific nursing protocol in the CT contrast administration guidelines link. collagenase (SANTYL) ointment Apply to affected area once daily. APPLY TO AFFECTED AREA REVIEW OF SYSTEMS: Review of Systems Constitutional: Positive for malaise/fatigue. Negative for chills, fever and weight loss. HENT: Negative for hearing loss and sore throat. Eyes: Negative for blurred vision and double vision. Respiratory: Positive for shortness of breath. Cardiovascular: Negative. Gastrointestinal: Negative. Genitourinary: Negative for dysuria, frequency, hematuria and urgency. Musculoskeletal: Positive for back pain, joint pain and myalgias. Skin: Negative. Neurological: Negative for dizziness, seizures, loss of consciousness, weakness and headaches. Endo/Heme/Allergies: Negative for environmental allergies. Does not bruise/bleed easily. Psychiatric/Behavioral: Negative for depression. PHYSICAL EXAMINATION: BP 98/61 Pulse 66 Resp 17 Wt 166 lb (75.3kg) SpO2 93% PF 4L/min General: Pleasant gentleman sitting appears comfortable no apparent distress alert and oriented x3 HEENT: Carotid upstrokes are brisk bilaterally without bruits. No JVD appreciated. Pulmonary: Diminished breath sounds noted throughout. No rales, wheezes, rhonchi Cardiovascular: Normal S1, S2 with a regularly irregular pulse and normal rate.. No murmurs, rubs, or gallops Extremities: Warm, well-perfused, trace pedal edema left lower extremity. 2+ radial pulses CARDIOVASCULAR MEDICINE TESTING: ECG in the office 09/29/2022: Normal sinus rhythm with frequent PVCs. Nonspecific ST-T wave changes ECG in the office April 29, 2021: Normal sinus rhythm with frequent PVCs. Possible left atrial enlargement. CORONARY ANGIOGRAPHY 03/14/15 LM: 10-20% ostial stenosis proximal to the stent which is widely patent and extends into the LAD. LAD: Moderate sized vessel which gives a small first diagonal branch and larger second diagonal branch. There is diffuse 10-20% stenosis in the proximal vessel. The distal vessel is of smaller caliper but has no significant stenosis. The first diagonal branch has mild narrowing at its ostium but is a tiny vessel. The larger second diagonal branch is normal. LCX: Non-dominant vessel which gives a tiny first marginal branch and large second bifurcating marginal branch. There is 70-80% diffuse stenosis in the proximal vessel and a second 60-70% stenosis atthe bifurction on the OM2. The OM2 fills competitively from the [place] LCX and the SVG. RCA: Dominant vessel which is stented from the proximal-distal portion. There is 20-30% diffuse ISRwith 50-60% ISR in the mid vessel. The LAD has mild diffuse stenoses with a diiscreet 30-40% lesiondistally. SVG-OM: Patent with 40-50% stenosis in an area of some mild toruosity. FFR was performed of the mid RCA lesion and was 0.87. ASSESSMENT Severe single vessel coronary artery disease of the left circumflex artery with a patent bypass graft to the OM. Moderate right coronary artery disease which was not hemodynamically significant by FFR. Regadenoson Myoview Stress 04/24/2022 CONCLUSIONS: 1. SPECT Perfusion Study: Abnormal. 2. There is mild (<10%) ischemia in the territory of the RCA. 3. There is a small (<10%) fixed perfusion defect in the RCA territory. 4. Left ventricle is normal in size. The left ventricle systolic function is mildly decreased. 5. Right ventricle is normal in size. The right ventricle systolic function is normal. 6. This is an intermediate risk scan due to area of scar/ischemia. Gated Stress IR:3D LVEF % 50 Echocardiogram [facility] 03/25/2023: Normal LV size. Estimated ejection fraction 60% no evidence of diastolic dysfunction Trileaflet aortic valve with aortic valve sclerosis and no significant stenosis Echocardiogram 04/24/2022: - Technically difficult exam due to body habitus. - Exam indication: Hypertension - The left ventricle is normal in size. There is moderate left ventricular hypertrophy. Left ventricular systolic function is normal. EF = 56 5% (2D biplane) Definity contrast used for endocardial border detection. Grade I left ventricular diastolic dysfunction. - The right ventricle is normal in size. Right ventricular systolic function is normal. - The visualized aorta is borderline dilated with a maximal dimension of 3.9 cm. - Mild 1+ mitral regurgitation. - Mild to moderate (1-2+) aortic regurgitation. - Estimated right ventricular systolic pressure is 33 mmHg consistent with normal pulmonary artery pressures. Estimated right atrial pressure is 8 mmHg based on IVC assessment. - Exam was compared with the prior echocardiographic exam performed on 09/23/10. The mitral regurgitation and the aortic regurgitation have increased. PVR 06/18/2022: IMPRESSION Compared to prior study of 12/25/2021, Right waveform tracings and doppler signals have improved. RIGHT SIDE Resting right ankle brachial index: 1.85 Non-compressible arteries, TRAE not accurate. Right toe brachial index: 0.44 Non-compressible vessels, results called by PVR tracings. Abnormal toe brachial index at rest is evidence of peripheral artery disease. Right ankle: Moderate disease at rest. LEFT SIDE Resting left ankle brachial index: 1.85 Non-compressible arteries, TRAE not accurate. Left toe brachial index: 0.45 Non-compressible vessels, results called by PVR tracings. Abnormal toe brachial index at rest is evidence of peripheral artery disease. Left ankle: Moderate disease at rest. PVR 12/18/2020: IMPRESSION Compared to prior study of 12/16/2019, appears no significant change in waveforms at ankle. Non compressible arteries. RIGHT SIDE Resting right ankle brachial index: 1.93 Non-compressible arteries, TRAE not accurate. Right toe brachial index: 0.60 Non-compressible vessels, results called by PVR tracings. Abnormal toe brachial index at rest is evidence of peripheral artery disease. Right ankle: Moderate disease at rest. LEFT SIDE Resting left ankle brachial index: 1.93 Non-compressible arteries, TRAE not accurate. Left toe brachial index: 0.61 Non-compressible vessels, results called by PVR tracings. Abnormal toe brachial index at rest is evidence of peripheral artery disease. Left ankle: Moderate disease at rest. ECG in the office 10/15/2020: Sinus rhythm with occasional PVCs. Normal axis and intervals. No significant ST or T wave changes IMPRESSION: Mr. Corley is a 84 year old gentleman with known coronary artery disease prior coronary bypass grafting in 1999, COLEMAN-LAD, FRANCIA-RCA, SVG-left circumflex/OM). 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 He underwent stenting of the left maincoronary artery. Most recent cardiac catheterization 2015 as noted above. He is also treated for hypertension, dyslipidemia, and COPD. He has a history of small cell lung cancer and is status post left lower lobe wedge resection and radiation therapy. He has a history of peripheral arterial diseaseand underwent right femoral artery endarterectomy with right iliac stent placement April 2022. He has a history of DVT and PE March 2023, hypertension, and dyslipidemia. He presents the office for routine follow-up. PLAN AND RECOMMENDATIONS:\ 1. Coronary artery disease involving [place] coronary artery of [place] heart without angina pectoris- ICD9: 414.01, ICD10: I25.10 (primary diagnosis) Patient doing well without overt anginal symptoms. Continue current medical therapy and risk factormodification - ATORVASTATIN 40 MG TABLET 2. Essential hypertension - ICD9: 401.9, ICD10: I10 Patient with borderline hypotension. I recommended discontinuation of metoprolol. 3. Hyperlipidemia, mixed - ICD9: 272.2, ICD10: E78.2 Maintained on atorvastatin 40/Zetia 10 mg once daily. Fasting blood work from May 2024 was reviewed. LDL cholesterol 38 mg/dL - ATORVASTATIN 40 MG TABLET 4. PAD (peripheral artery disease) - ICD9: 443.9, ICD10: I73.9 Follows with vascular surgery 5. Abdominal aortic aneurysm (AAA) without rupture, unspecified part - ICD9: 441.4, ICD10: I71.40 Bela Manzano MD documented [facility] Progress note Author Rasta Mazariegos [facility] Note Date/Time July 27, 2024 6:57p m [facility] [address] [place] [address] Progress Note - Wound Care 07/27/24 1849 MR#: [id number] Acct: [id number] Name: OSWALDO CORLEY Rep #:[id number] : 1940 84 From: Rasta Carr PM PCP: Dr. Mei Cummins MD Status:RE G RCR Location: History of Present Illness Date of Service: 07/27/24 Chief Complaint: Left medial ankle ulcer History of Wound: Patient is a very pleasant 83 year old male with a left medialankle ulcer that he has been seeing residential service technician, Dr. Viveros. Patient has a significant history for COPD that he sees Palliative care to help manage. He is on home O2. He also has a history of Prostate CA, Squamous carcinoma of left lung, HTN, anxiety and depression, AAA without rupture, CAD, coronary artery stent placement (multiple), CABG x 3, former smoker, PAD, PBH, and pulmonary embolism- on anticoagulants, and hyperlipidemia. He has had arterial studies inthe past and had some vascular procedures (by Dr. Vigil) to his left leg. He denies hx of diabetes. His providers are all with [facility]. He has had this left medial ankle ulcer for 3 months. He has been placing Santyl covered with [place] SAP. There has not been much improvement to this area. He states that he was referred to see us by [facility] and that Dr. Viveros also suggested he get a second opinion. He is on a new medication that his states is an antibiotic but they are unsure of the name. He denies fever, chills, nausea or vomiting. He comes in today for further evaluation and treatment. Progress of Wound: Stable full-thickness wound medial left ankle and left first metatarsophalangealjoint. Subjective Subjective Mr Corley is a 84-year-old male presenting to wound care center today for follow-up evaluation of left ankle and left foot full-thickness wound. Patient has left his dressing clean dry and intact. He denies any pain in the left extremity. Denies trauma. Denies constitutional symptoms. No other pedal complaints at this time. Objective Data Objective Data Vital Signs: Vital Signs Temp Pulse Resp BP Pulse Ox O2 Del Method O2 Flow Rate 97.1 F L 91 16 122/60 H 93 Room Air 4 07/27/24 10:58 07/27/24 10:58 07/27/24 10:58 07/27/24 10:58 07/06/24 14:11 07/27/24 10:58 07/06/24 14:11 Oxygen Flow Rate (L/min) 4 Oxygen Delivery Method Room Air Weight: 74.843 kg Body Mass Index (BMI) 22.4 Lab / Micro Data Micro: Microbiology 07/13/24 14:15 Ulcer, Decubitus - Left Foot Gram Stain - Final 07/13/24 14:15 Ulcer, Decubitus - Left Foot Wound Culture - Final Staphylococcus capitis 07/13/24 14:15 Ulcer, Decubitus - Left Foot Anaerobic Culture - Final No growth in 5 days. Physical Exam Narrative Vascular: DP and PT pulses are faintly palpable. CFT is brisk. Blanchable erythema appreciated to the medial ankle and first metatarsophalangeal joint to the left foot, improving skin temp great is warm to cool from proximal ankles todistal digits left lower extremity. Neurological: Light touch intact. Patient does despond painful stimuli. Dermatological: Full-thickness wound to the dorsal aspect left foot first metatarsal phalangeal joint measuring 0.6 x 1.9 x 0.1 cm. Wound base is granular.. Full-thickness wound to the medial ankle of the left lower extremitymeasuring 0.9 x 1.1 x 0.3 cm. Probe to deltoid ligament. Blanchable erythema to the periwound is noticeable as well as improving. Excisional debridement down to including subcutaneous tissue, fascia and muscle to the left lower extremity full-thickness wound with a number 3 mm dermal curette and #15 blade without incident. Predebridement measurement was 0.8 x 1.0 x 0.2 cm. Postdebridement measurement is 0.9 x 1.1 x 0.3 cm. Epifix 18 mm disc was applied to the left full-thickness ulceration with 100% use. Sixth application. The graft site was free and clear of any infection. The wound/skin graft substitute was dressed with nonadherent bandage secured in place with Steri-Strips followed by bolster dressing as well as a double layer Tubigrip. Excisional debridement down to and including subcutaneous tissue to the sanguinous crust to the dorsal aspect of the first metatarsophalangeal joint of the left foot done without incident with a sterile pickup and 15 blade. Predebridement measurement was 0.7 x 1.0 x 0.1 cm. Postdebridement measurement was 0.9 x 1.1 x 0.3 cm. Musculoskeletal: Mild pain to palpation to full-thickness wound to the left lower extremity medial ankle. No pain with calf pressure. Debridement Note Debridement Note Debridement Free Text: Excisional debridement down to including subcutaneous tissue, fascia and muscle to the left lower extremity full-thickness wound with a number 3 mm dermal curette and #15 blade without incident. Predebridement measurement was 0.8 x 1.0 x 0.2 cm. Postdebridement measurement is 0.9 x 1.1 x 0.3 cm. Epifix 18 mm disc was applied to the left full-thickness ulceration with 100% use. Sixth application. The graft site was free and clear of any infection. The wound/skin graft substitute was dressed with nonadherent bandage secured in place with Steri-Strips followed by bolster dressing as well as a double layer Tubigrip. Excisional debridement down to and including subcutaneous tissue to the sanguinous crust to the dorsal aspect of the first metatarsophalangeal joint of the left foot done without incident with a sterile pickup and 15 blade. Predebridement measurement was 0.7 x 1.0 x 0.1 cm. Postdebridement measurement was 0.9 x 1.1 x 0.3 cm. Post-Debridement Measurements and Additional Note: Post-Debridement Measurements/Treatment WC - Nurse 1 - General Ulcer Assessment Start: 07/06/24 14:11 Freq: Status: Active Protocol: CEEEXAyala Activity Type Activity Date Activity User E-sign Co-sign Detail Recorded Client Recorded Date Recorded By Document 07/06/24 14:11 MT [id number] 07/06/24 14:21 MT Document 07/13/24 14:06 RB [id number] 07/13/24 14:09 RB Document 07/20/24 13:47 DL [id number] 07/20/24 13:58 DL Document 07/27/24 10:58 KW [id number] 07/27/24 11:05 KW 07/06/24 07/13/24 07/20/24 14:11 14:06 13:47 WC - Today's Visit Information Type of service Follow-up Visit Follow-up Visit Follow-up Visit (Physician/LEGAL STENOGRAPHER (Physician/LEGAL STENOGRAPHER (Physician/LEGAL STENOGRAPHER ) ) ) Arrival Mode Ambulatory Wheelchair Wheelchair Transfer Assistance None None Accompanied by Patient Identification Verified (Name & Yes Yes Yes ) Patient Requires Transmission-Based No No Precautions Safety Precautions Fall Prevention Height and Weight Body Mass Index (BMI) 22.4 22.4 22.4 BMI Classification Normal Normal Normal Vital Signs Temperature (97.8 F-99.1 F) 97 F L 96.9 F L 97.7 F L Temperature Source Temporal Temporal Temporal Pulse Rate (60-100) 72 75 66 Pulse Location Monitor Monitor Monitor Respiratory Rate (12-18) 22 H 18 18 Respiratory rate source Observation Observation Observation Pulse Oximetry 93 Oxygen Delivery Method Nasal Cannula O2 L/MIN (L/min) 4 Blood Pressure (90/60-120/80) 104/49 L 98/65 117/59 L Blood Pressure Mean (mm Hg) 67 76 78 Source Monitor Monitor Monitor Position Sitting Semi-Fowlers Blood Pressure Location Right Arm Left Arm History Since Last Visit- (Skip if this is Patient's initial visit) Have you changed medications since your No No last visit? Any new allergies or adverse reactions No No Had a fall/change in ADL's that may No No increase risk of falls Signs or symptoms of abuse and/or No No neglect since last visit Have you been in the hospital since your No No last visit? Has dressing in place as prescribed Yes Yes Yes Has compression in place as prescribed Yes No Yes Has offloadiing in place as prescribed Yes N/A N/A Experienced any changes in pain level or Yes No No management Left Footwear Regular Shoe Right Footwear Regular Shoe Pain Scale: 0-10 Numeric Is Patient Pain Free? Yes Yes Yes 07/27/24 10:58 WC - Today's Visit Information Type of service Follow-up Visit (Physician/LEGAL STENOGRAPHER ) Arrival Mode Wheelchair Transfer Assistance Accompanied by Patient Identification Verified (Name & Yes ) Patient Requires Transmission-Based Precautions Safety Precautions Height and Weight Body Mass Index (BMI) 22.4 BMI Classification Normal Vital Signs Temperature (97.8 F-99.1 F) 97.1 F L Temperature Source Temporal Pulse Rate (60-100) 91 Pulse Location Monitor Respiratory Rate (12-18) 16 Respiratory rate source Observation Pulse Oximetry Oxygen Delivery Method Room Air O2 L/MIN (L/min) Blood Pressure (90/60-120/80) 122/60 H Blood Pressure Mean (mm Hg) 80 Source Monitor Position Semi-Fowlers Blood Pressure Location Left Arm History Since Last Visit- (Skip if this is Patient's initial visit) Have you changed medications since your No last visit? Any new allergies or adverse reactions No Had a fall/change in ADL's that may No increase risk of falls Signs or symptoms of abuse and/or No neglect since last visit Have you been in the hospital since your No last visit? Has dressing in place as prescribed Yes Has compression in place as prescribed Yes Has offloadiing in place as prescribed N/A Experienced any changes in pain level or No management Left Footwear Regular Shoe Right Footwear Regular Shoe Pain Scale: 0-10 Numeric Is Patient Pain Free? Yes WC - Nurse 1 - General Ulcer Measurement Start: 07/06/24 14:11 Freq: Status: Active Protocol: Activity Type Activity Date Activity User E-sign Co-sign Detail Recorded Client Recorded Date Recorded By Document 07/06/24 14:11 MT [id number] 07/06/24 14:21 MT Document 07/13/24 14:06 RB [id number] 07/13/24 14:09 RB Document 07/20/24 13:47 DL [id number] 07/20/24 13:58 DL Document 07/27/24 10:58 KW [id number] 07/27/24 11:05 KW Edit Result 07/27/24 10:58 KW (1) [id number] 07/27/24 11:06 KW (1) 3-left foot - Color (Bell-wound Skin Appearance) Assessed => Assessed,Erythema #1- L MEDIAL ANKLE - Color (Bell-wound Skin Appearance) Assessed => Assessed,Erythema 07/06/24 07/13/24 07/20/24 14:11 14:06 13:47 Wound Center Nurse 1 #2 L LAT HEEL -Current Size (cm) - Length 2 -Current Size (cm) - Width 0.7 -Current Size (cm) - Depth 0.1 -Total Square Cm 1.4 -Photo Taken No -Tunneling No -Undermining/Tunneling No -Circular Undermining No -Exudate Amt None Present -Wound Margin Flat & Intact -Granulation Amt Large (67-100%) -Granulation Quality Pale,[place] -Texture (Bell-wound Skin Appearance) Assessed -Moisture (Bell-wound Skin Appearance) Assessed -Color (Bell-wound Skin Appearance) Assessed -Temperature (Bell-wound Skin No Abnormality Appearance) (Pt Warm) -Tenderness on Palpation (Bell-wound No Skin Appearance) -Ulcer Cleansing Soap and Water -Foul Odor after Cleansing No -Anesthetic Used 5% Lidocaine Gel 3-left foot -Current Size (cm) - Length 0.6 -Current Size (cm) - Width 1.6 -Current Size (cm) - Depth 0.1 -Total Square Cm 0.96 -Date of Last Picture (Recall this field) -Exudate Amt Medium -Exudate Type Serosanguineous -Wound Margin Distinct, Outline Attached -Granulation Amt Small (1-33%) -Granulation Quality [place] -Necrosis Amt Large (67-100%) -Necrotic Tissue Type Adherent Slough -Structure Exposed N/A -Texture (Bell-wound Skin Appearance) Scarring -Moisture (Bell-wound Skin Appearance) No Abnormality -Color (Bell-wound Skin Appearance) No Abnormality -Temperature (Bell-wound Skin No Abnormality Appearance) (Pt Warm) -Tenderness on Palpation (Bell-wound Skin Appearance) -Ulcer Cleansing Rinsed/ Irrigated with Saline -Foul Odor after Cleansing No -Anesthetic Used 5% Lidocaine Gel #1- L MEDIAL ANKLE -Combined with other wound No -Current Size (cm) - Length 1.1 1 1 -Current Size (cm) - Width 1.0 1.1 1 -Current Size (cm) - Depth 0.2 0.2 0.3 -Total Square Cm 1.10 1.1 1 -Photo Taken No Yes -Tunneling No No -Undermining/Tunneling No No -Undermining/Tunneling Starts (O'clock 7 ) -Undermining/Tunneling Ends (O'clock) 11 -Maximum Distance (cm) 0.2 -Circular Undermining No No -Exudate Amt Small Medium Medium -Exudate Type Serosanguineous Serosanguineous Serosanguineous -Wound Margin Thickened & Thickened & Distinct, Rolled Under Rolled Under Outline Attached -Granulation Amt Small (1-33%) Medium (34-66%) None Present (0 %) -Granulation Quality Pale,[place] -Slough/Fibrin Yes -Necrosis Amt Large (67-100%) Small (1-33%) Large (67-100%) -Necrotic Tissue Type Adherent Slough Adherent Slough Adherent Slough -Structure Exposed N/A N/A -Texture (Bell-wound Skin Appearance) Assessed Assessed Scarring -Moisture (Bell-wound Skin Appearance) Assessed, Assessed No Abnormality Maceration -Color (Bell-wound Skin Appearance) Assessed Erythema No Abnormality -Temperature (Bell-wound Skin No Abnormality No Abnormality No Abnormality Appearance) (Pt Warm) (Pt Warm) (Pt Warm) -Tenderness on Palpation (Bell-wound No No Skin Appearance) -Ulcer Cleansing Soap and Water Wound Cleanser Rinsed/ Irrigated with Saline -Foul Odor after Cleansing No No No -Anesthetic Used 5% Lidocaine 5% Lidocaine 5% Lidocaine Gel Gel Gel Lower Limb Edema Present Yes Left Calf (cm) 28 32 29.8 Left Ankle (cm) 25 24.5 24.5 07/27/24 10:58 Wound Center Nurse 1 #2 L LAT HEEL -Current Size (cm) - Length -Current Size (cm) - Width -Current Size (cm) - Depth -Total Square Cm -Photo Taken -Tunneling -Undermining/Tunneling -Circular Undermining -Exudate Amt -Wound Margin -Granulation Amt -Granulation Quality -Texture (Bell-wound Skin Appearance) -Moisture (Bell-wound Skin Appearance) -Color (Bell-wound Skin Appearance) -Temperature (Bell-wound Skin Appearance) -Tenderness on Palpation (Bell-wound Skin Appearance) -Ulcer Cleansing -Foul Odor after Cleansing -Anesthetic Used 3-left foot -Current Size (cm) - Length 0.6 -Current Size (cm) - Width 1.8 -Current Size (cm) - Depth 0.1 -Total Square Cm 1.08 -Date of Last Picture (Recall this 07/27/24 field) -Exudate Amt Medium -Exudate Type Serosanguineous -Wound Margin Thickened -Granulation Amt Small (1-33%) -Granulation Quality [place] -Necrosis Amt Large (67-100%) -Necrotic Tissue Type Adherent Slough -Structure Exposed -Texture (Bell-wound Skin Appearance) Assessed -Moisture (Bell-wound Skin Appearance) Assessed -Color (Bell-wound Skin Appearance) Assessed, Erythema -Temperature (Bell-wound Skin No Abnormality Appearance) (Pt Warm) -Tenderness on Palpation (Bell-wound No Skin Appearance) -Ulcer Cleansing Soap and Water -Foul Odor after Cleansing No -Anesthetic Used 5% Lidocaine Gel #1- L MEDIAL ANKLE -Combined with other wound -Current Size (cm) - Length 1 -Current Size (cm) - Width 1.1 -Current Size (cm) - Depth 0.2 -Total Square Cm 1.1 -Photo Taken -Tunneling -Undermining/Tunneling -Undermining/Tunneling Starts (O'clock ) -Undermining/Tunneling Ends (O'clock) -Maximum Distance (cm) -Circular Undermining Yes -Exudate Amt Medium -Exudate Type Serosanguineous -Wound Margin Thickened -Granulation Amt Small (1-33%) -Granulation Quality [place] -Slough/Fibrin -Necrosis Amt Large (67-100%) -Necrotic Tissue Type Adherent Slough -Structure Exposed -Texture (Bell-wound Skin Appearance) Assessed -Moisture (Bell-wound Skin Appearance) Assessed -Color (Bell-wound Skin Appearance) Assessed, Erythema -Temperature (Bell-wound Skin No Abnormality Appearance) (Pt Warm) -Tenderness on Palpation (Bell-wound No Skin Appearance) -Ulcer Cleansing Soap and Water -Foul Odor after Cleansing No -Anesthetic Used 5% Lidocaine Gel Lower Limb Edema Present Left Calf (cm) Left Ankle (cm) WC - Nurse 2 - General Ulcer CM Notes Start: 07/06/24 14:11 Freq: Status: Active Protocol: Activity Type Activity Date Activity User E-sign Co-sign Detail Recorded Client Recorded Date Recorded By Document 07/06/24 14:32 SONNY [id number] 07/06/24 14:39 Document 07/13/24 14:14 SONNY [id number] 07/13/24 14:25 JF Edit Result 07/13/24 14:14 JF (1) 000 07/19/24 11:58 Document 07/20/24 14:07 [id number] 07/20/24 14:11 JF Document 07/27/24 11:23 [id number] 07/27/24 11:32 JF (1) #1- L MEDIAL ANKLE - Apply Skin Sub - 1st 25 sq cm - Legs => 1 - Apply Skin Sub - 1st 25 sq cm - Feet 1 => 07/06/24 07/13/24 07/20/24 14:32 14:14 14:07 Wound Center Nurse 2 #2 L LAT HEEL -Correct Patient Yes -Correct Side, Site, Position No -Correct Procedure No -Procedure Performed No -Post Debridement (cm) - Length 0 -Post Debridement (cm) - Width 0 -Post Debridement (cm) - Depth 0 -Total Square (Post) (cm) 0 -Area of Debridement (cm) - Length 0 -Area of Debridement (cm) - Width 0 -Total Square (Area) (cm) 0 -Wound/Ulcer Outcome Healed- Epithelialized 3-left foot -Time 14:17 14:07 -Correct Patient Yes Yes -Correct Side, Site, Position Yes Yes -Correct Procedure Yes Yes -Procedure Performed Yes Yes -Type of Procedure Debridement Debridement -Clinical Debridement Subcutaneous Subcutaneous -Tissue Removed Subcutaneous Subcutaneous -Post Debridement (cm) - Length 0.8 0.6 -Post Debridement (cm) - Width 1.9 1.7 -Post Debridement (cm) - Depth 0.1 0.1 -Total Square (Post) (cm) 1.52 1.02 -Area of Debridement (cm) - Length 0.8 0.6 -Area of Debridement (cm) - Width 1.9 1.7 -Total Square (Area) (cm) 1.52 1.02 -Tunneling No No -Undermining/Tunneling No No -Circular Undermining No No -Wound/Ulcer Outcome Not Healed Not Healed -Ulcer Cleansing Rinsed/ Rinsed/ Irrigated with Irrigated with Saline Saline -Foul Odor after Cleansing No No -Bioengineered Tissue No -Bleeding Controlled with Pressure Pressure -Treatment Response Procedure Procedure Tolerated Well Tolerated Well -Offloading Yes Yes -Type of Offloading Surgical Shoe Surgical Shoe -Debridement - Subq, 1st 20sq cm Yes Yes #1- L MEDIAL ANKLE -Time 14:35 14:14 14:09 -Correct Patient Yes Yes Yes -Correct Side, Site, Position Yes Yes Yes -Correct Procedure Yes Yes Yes -Procedure Performed Yes Yes Yes -Type of Procedure Debridement Debridement Debridement -Clinical Debridement Muscle / Fascia Muscle / Fascia Muscle / Fascia -Tissue Removed Muscle Muscle Tendon -Post Debridement (cm) - Length 1.1 1.1 1.0 -Post Debridement (cm) - Width 1.0 1.2 1.1 -Post Debridement (cm) - Depth 0.2 0.2 0.3 -Total Square (Post) (cm) 1.10 1.32 1.10 -Area of Debridement (cm) - Length 1.1 1.1 1.0 -Area of Debridement (cm) - Width 1.0 1.2 1.1 -Total Square (Area) (cm) 1.10 1.32 1.10 -Tunneling No No No -Undermining/Tunneling No No No -Circular Undermining No No No -Wound/Ulcer Outcome Not Healed Not Healed Not Healed -Ulcer Cleansing Rinsed/ Rinsed/ Rinsed/ Irrigated with Irrigated with Irrigated with Saline Saline Saline -Foul Odor after Cleansing No No No -Bioengineered Tissue Yes Yes Yes -Type of Bioengineered Tissue Epicord Epifix 18mm Epicord Disc -Expiration Date 10/31/28 01/30/29 10/31/28 -Product Lot Number [id number] -Percent Used 100 505 100 -Lot number of Saline Used [id number] -Bleeding Controlled with Pressure Pressure Pressure -Treatment Response Procedure Procedure Procedure Tolerated Well Tolerated Well Tolerated Well -Offloading No Yes No -Type of Offloading Surgical Shoe -Debridement - Subq, 1st 20sq cm No No -Debridement - Muscle / Fascia, 1st No No No 20sq cm -Apply Skin Sub - 1st 25 sq cm - Legs 1 1 1 -Epicord Application 1-4 (per sq cm) 6 6 -Epifix 18mm Disc Application 1-4 3 Pain Scale: 0-10 Numeric Is Patient Pain Free? Yes Yes Yes 07/27/24 11:23 Wound Center Nurse 2 #2 L LAT HEEL -Correct Patient -Correct Side, Site, Position -Correct Procedure -Procedure Performed -Post Debridement (cm) - Length -Post Debridement (cm) - Width -Post Debridement (cm) - Depth -Total Square (Post) (cm) -Area of Debridement (cm) - Length -Area of Debridement (cm) - Width -Total Square (Area) (cm) -Wound/Ulcer Outcome 3-left foot -Time 11:24 -Correct Patient Yes -Correct Side, Site, Position Yes -Correct Procedure Yes -Procedure Performed Yes -Type of Procedure Debridement -Clinical Debridement Subcutaneous -Tissue Removed Subcutaneous -Post Debridement (cm) - Length 0.6 -Post Debridement (cm) - Width 1.9 -Post Debridement (cm) - Depth 0.1 -Total Square (Post) (cm) 1.14 -Area of Debridement (cm) - Length 0.6 -Area of Debridement (cm) - Width 1.9 -Total Square (Area) (cm) 1.14 -Tunneling No -Undermining/Tunneling No -Circular Undermining No -Wound/Ulcer Outcome Not Healed -Ulcer Cleansing Rinsed/ Irrigated with Saline -Foul Odor after Cleansing No -Bioengineered Tissue No -Bleeding Controlled with Pressure -Treatment Response Procedure Tolerated Well -Offloading No -Type of Offloading -Debridement - Subq, 1st 20sq cm Yes #1- L MEDIAL ANKLE -Time 11:24 -Correct Patient Yes -Correct Side, Site, Position Yes -Correct Procedure Yes -Procedure Performed Yes -Type of Procedure Debridement -Clinical Debridement Muscle / Fascia -Tissue Removed Muscle -Post Debridement (cm) - Length 0.9 -Post Debridement (cm) - Width 1.1 -Post Debridement (cm) - Depth 0.3 -Total Square (Post) (cm) 0.99 -Area of Debridement (cm) - Length 0.9 -Area of Debridement (cm) - Width 1.1 -Total Square (Area) (cm) 0.99 -Tunneling No -Undermining/Tunneling No -Circular Undermining No -Wound/Ulcer Outcome Not Healed -Ulcer Cleansing Rinsed/ Irrigated with Saline -Foul Odor after Cleansing No -Bioengineered Tissue Yes -Type of Bioengineered Tissue Epifix 18mm Disc -Expiration Date 01/30/29 -Product Lot Number [id number] -Percent Used 100 -Lot number of Saline Used [id number] -Bleeding Controlled with Pressure -Treatment Response Procedure Tolerated Well -Offloading No -Type of Offloading -Debridement - Subq, 1st 20sq cm -Debridement - Muscle / Fascia, 1st No 20sq cm -Apply Skin Sub - 1st 25 sq cm - Legs 1 -Epicord Application 1-4 (per sq cm) -Epifix 18mm Disc Application 1-4 3 Pain Scale: 0-10 Numeric Is Patient Pain Free? Yes - Nurse 3 - General Ulcer D/C NN Start: 07/06/24 14:11 Freq: Status: Active Protocol: Activity Type Activity Date Activity User E-sign Co-sign Detail Recorded Client Recorded Date Recorded By Document 07/06/24 14:48 KW [id number] 07/06/24 14:48 KW Document 07/13/24 14:34 ML [id number] 07/13/24 14:36 ML Document 07/20/24 14:20 KW [id number] 07/20/24 14:20 KW Document 07/27/24 11:42 DL [id number] 07/27/24 11:45 DL 07/06/24 07/13/24 07/20/24 14:48 14:34 14:20 Wound Care Center Nurse 3 3-left foot -Foul Odor after Cleansing -Primary Dressing Applied Silicone Border Silicone Border Foam 4x4 Foam 4x4 -Other Dressing -Primary Dressing Covered/Secured with Dry Gauze -Silicone Border Foam 4x4 1 1 #1- L MEDIAL ANKLE -Foul Odor after Cleansing -Primary Dressing Applied Silicone Border Silicone Border Silicone Border Foam 4x4, Foam 6x6 Foam 4x4 Silicone Border Foam 6x6 -Other Dressing -Primary Dressing Covered/Secured with -Silicone Border Foam 4x4 1 1 -Silicone Border Foam 6x6 1 1 -Wound Comment(s) LLE -Tubular Bandage Single Layer Single Layer Single Layer -Size of Tubigrip Used Size F Size F Size F -Size F ($) 1 1 1 Pain Scale: 0-10 Numeric Is Patient Pain Free? Yes Yes Yes Pain Scale: Adult NonVerbal Is Patient Pain Free? Yes - Visit Discharge Discharge Condition Stable Stable Ambulatory Status Wheelchair Wheelchair Transportation Private Auto Private Auto Medication Reconcilliation completed & No No provided to patient/care provider Clinical Summary of Care Provided Yes Yes 07/27/24 11:42 Wound Care Center Nurse 3 3-left foot -Foul Odor after Cleansing No -Primary Dressing Applied -Other Dressing Epifix/hydrogel -Primary Dressing Covered/Secured with Dry Gauze & Roll Gauze, Secured with Tape -Silicone Border Foam 4x4 #1- L MEDIAL ANKLE -Foul Odor after Cleansing No -Primary Dressing Applied -Other Dressing epifix/hydrogel -Primary Dressing Covered/Secured with Dry Gauze & Roll Gauze, Secured with Tape -Silicone Border Foam 4x4 -Silicone Border Foam 6x6 -Wound Comment(s) Dressing applied per Jhonatan Gonzalez today. LLE -Tubular Bandage Single Layer -Size of Tubigrip Used Size F -Size F ($) 1 Pain Scale: 0-10 Numeric Is Patient Pain Free? Yes Pain Scale: Adult NonVerbal Is Patient Pain Free? 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 All findings were discussed with the patient. All questions were answered to the patient's satisfaction. Excisional debridement down to including subcutaneous tissue, fascia and muscle to the left lower extremity full-thickness wound with a number 3 mm dermal curette and #15 blade without incident. Predebridement measurement was 0.8 x 1.0 x 0.2 cm. Postdebridement measurement is 0.9 x 1.1 x 0.3 cm. Epifix 18 mm disc was applied to the left full-thickness ulceration with 100% use. Sixth application. The graft site was free and clear of any infection. The wound/skin graft substitute was dressed with nonadherent bandage secured in place with Steri-Strips followed by bolster dressing as well as a double layer Tubigrip. Excisional debridement down to and including subcutaneous tissue to the sanguinous crust to the dorsal aspect of the first metatarsophalangeal joint of the left foot done without incident with a sterile pickup and 15 blade. Predebridement measurement was 0.7 x 1.0 x 0.1 cm. Postdebridement measurement was 0.9 x 1.1 x 0.3 cm. The patient will follow-up with Dr. Mazariegos in 1 week. (2) Other specified peripheral vascular diseases: CODE(S): I73.89 - Other specified peripheral vascular diseases (3) Non-pressure chronic ulcer of other part of left foot with fat layer exposed: CODE(S): L97.522 - Non-pressure chronic ulcer of other part of left foot with fat layer exposed 07/27/241856 <Electronically signed by Rasta Mazariegos DPM> Cosigner Signature (if applicable): CC: ~ Signed [facility] Work Phone: [phone] [facility] Progress note Author Rasta Mazariegos [facility] Note Date/Time 2024 2:32p m [facility] [address] [place] [address] Progress Note - Wound Care 07/20/24 1427 MR#: [id number] Acct: [id number] Name: OSWALDO CORLEY Rep #:[id number] : 1940 84 From: Ratsa Carr PM PCP: Dr. Mei Cummins MD Status:RE G RCR Location: History of Present Illness Date of Service: 07/20/24 Chief Complaint: Left medial ankle ulcer History of Wound: Patient is a very pleasant 83 year old male with a left medialankle ulcer that he has been seeing residential service technician, Dr. Viveros. Patient has a significant history for COPD that he sees Palliative care to help manage. He is on home O2. He also has a history of Prostate CA, Squamous carcinoma of left lung, HTN, anxiety and depression, AAA without rupture, CAD, coronary artery stent placement (multiple), CABG x 3, former smoker, PAD, PBH, and pulmonary embolism- on anticoagulants, and hyperlipidemia. He has had arterial studies inthe past and had some vascular procedures (by Dr. Vigil) to his left leg. He denies hx of diabetes. His providers are all with [facility]. He has had this left medial ankle ulcer for 3 months. He has been placing Santyl covered with [place] SAP. There has not been much improvement to this area. He states that he was referred to see us by [facility] and that Dr. Viveros also suggested he get a second opinion. He is on a new medication that his states is an antibiotic but they are unsure of the name. He denies fever, chills, nausea or vomiting. He comes in today for further evaluation and treatment. Progress of Wound: Stable full-thickness wound medial left ankle and left first metatarsophalangealjoint. Subjective Subjective Mr Corley is a 84-year-old male presenting to wound care center today for follow-up evaluation of left ankle and left foot full-thickness wound. Patient has left the dressing clean dry and intact. Today is his birthday. Patient states that he has some discomfort to the big toe joint with a full-thickness wound is. He states the redness has improved. He denies any new onset of trauma. Denies constitutional symptoms. No other pedal complaints at this time. Objective Data Objective Data Vital Signs: Vital Signs Temp Pulse Resp BP Pulse Ox O2 Del Method O2 Flow Rate 97.7 F L 66 18 117/59 L 93 Nasal Cannula 4 07/20/24 13:47 07/20/24 13:47 07/20/24 13:47 07/20/24 13:47 07/06/24 14:11 07/06/24 14:11 07/06/24 14:11 Oxygen Flow Rate (L/min) 4 Oxygen Delivery Method Nasal Cannula Weight: 74.843 kg Body Mass Index (BMI) 22.4 Lab / Micro Data Micro: Microbiology 07/13/24 14:15 Ulcer, Decubitus - Left Foot Gram Stain - Final 07/13/24 14:15 Ulcer, Decubitus - Left Foot Wound Culture - Final Staphylococcus capitis 07/13/24 14:15 Ulcer, Decubitus - Left Foot Anaerobic Culture - Final No growth in 5 days. Physical Exam Narrative Vascular: DP and PT pulses are faintly palpable. CFT is brisk. Blanchable erythema appreciated to the medial ankle and first metatarsophalangeal joint to the left foot, improving skin temp great is warm to cool from proximal ankles todistal digits left lower extremity. Neurological: Light touch intact. Patient does despond painful stimuli. Dermatological: Full-thickness wound to the dorsal aspect left foot first metatarsal phalangeal joint measuring 0.6 x 1.7 x 0.1 cm. Wound base is granular with negative probe to bone. Full-thickness wound to the medial ankle of the left lower extremity measuring 1.0 x 1.1 x 0.3 cm. Probe to deltoid ligament. Blanchable erythema to the periwound is noticeable as well as improving. Excisional debridement down to including subcutaneous tissue, fascia and muscle to the left lower extremity full-thickness wound with a number 3 mm dermal curette and #15 blade without incident. Predebridement measurement was 0.9 x 1.0 x 0.2 cm. Postdebridement measurement is 1.0 x 1.1 x 0.3 cm. EpiCord 2.0 x 3.0 cm disc was applied to the left full-thickness ulceration [id number]% use. Fifth application. The graft site was free and clear of any infection. The wound/skin graft substitute was dressed with nonadherent bandagesecured in place with Steri-Strips followed by bolster dressing as well as a double layer Tubigrip. Excisional debridement down to and including subcutaneous tissue to the sanguinous crust to the dorsal aspect of the first metatarsophalangeal joint of the left foot done without incident with a sterile pickup and 15 blade. Predebridement measurement was 0.5 x 1.5 x 0.1 cm. Postdebridement measurement was 0.6 x 1.7 x 0.1 cm. Musculoskeletal: Muscle strength 5 and 5 in all quadrants bilateral. Mild pain to palpation to full-thickness wound to the left lower extremity medial ankle. No pain with calf pressure. Debridement Note Debridement Note Debridement Free Text: Excisional debridement down to including subcutaneous tissue, fascia and muscle to the left lower extremity full-thickness wound with a number 3 mm dermal curette and #15 blade without incident. Predebridement measurement was 0.9 x 1.0 x 0.2 cm. Postdebridement measurement is 1.0 x 1.1 x 0.3 cm. EpiCord 2.0 x 3.0 cm disc was applied to the left full-thickness ulceration [id number]% use. Fifth application. The graft site was free and clear of any infection. The wound/skin graft substitute was dressed with nonadherent bandagesecured in place with Steri-Strips followed by bolster dressing as well as a double layer Tubigrip. Excisional debridement down to and including subcutaneous tissue to the sanguinous crust to the dorsal aspect of the first metatarsophalangeal joint of the leftfoot done without incident with a sterile pickup and 15 blade. Predebridement measurement was 0.5 x 1.5 x 0.1 cm. Postdebridement measurement was 0.6 x 1.7 x0.1 cm. Post-Debridement Measurements and Additional Note: Post-Debridement Measurements/Treatment WC - Nurse 1 - General Ulcer Assessment Start: 07/06/24 14:11 Freq: Status: Active Protocol: MILENA Activity Type Activity Date Activity User E-sign Co-sign Detail Recorded Client Recorded Date Recorded By Document 07/06/24 14:11 MT [id number] 07/06/24 14:21 MT Document 07/13/24 14:06 RB [id number] 07/13/24 14:09 RB Document 07/20/24 13:47 DL [id number] 07/20/24 13:58 DL 07/06/24 07/13/24 07/20/24 14:11 14:06 13:47 WC - Today's Visit Information Type of service Follow-up Visit Follow-up Visit Follow-up Visit (Physician/LEGAL STENOGRAPHER (Physician/LEGAL STENOGRAPHER (Physician/LEGAL STENOGRAPHER ) ) ) Arrival Mode Ambulatory Wheelchair Wheelchair Transfer Assistance None None Accompanied by Patient Identification Verified (Name & Yes Yes Yes ) Patient Requires Transmission-Based No No Precautions Safety Precautions Fall Prevention Height and Weight Body Mass Index (BMI) 22.4 22.4 22.4 BMI Classification Normal Normal Normal Vital Signs Temperature (97.8 F-99.1 F) 97 F L 96.9 F L 97.7 F L Temperature Source Temporal Temporal Temporal Pulse Rate (60-100) 72 75 66 Pulse Location Monitor Monitor Monitor Respiratory Rate (12-18) 22 H 18 18 Respiratory rate source Observation Observation Observation Pulse Oximetry 93 Oxygen Delivery Method Nasal Cannula O2 L/MIN (L/min) 4 Blood Pressure (90/60-120/80) 104/49 L 98/65 117/59 L Blood Pressure Mean (mm Hg) 67 76 78 Source Monitor Monitor Monitor Position Sitting Semi-Fowlers Blood Pressure Location Right Arm Left Arm History Since Last Visit- (Skip if this is Patient's initial visit) Have you changed medications since your No No last visit? Any new allergies or adverse reactions No No Had a fall/change in ADL's that may No No increase risk of falls Signs or symptoms of abuse and/or No No neglect since last visit Have you been in the hospital since your No No last visit? Has dressing in place as prescribed Yes Yes Yes Has compression in place as prescribed Yes No Yes Has offloadiing in place as prescribed Yes N/A N/A Experienced any changes in pain level or Yes No No management Left Footwear Regular Shoe Right Footwear Regular Shoe Pain Scale: 0-10 Numeric Is Patient Pain Free? Yes Yes Yes WC - Nurse 1 - General Ulcer Measurement Start: 07/06/24 14:11 Freq: Status: Active Protocol: Activity Type Activity Date Activity User E-sign Co-sign Detail Recorded Client Recorded Date Recorded By Document 07/06/24 14:11 MT [id number] 07/06/24 14:21 MT Document 07/13/24 14:06 RB [id number] 07/13/24 14:09 RB Document 07/20/24 13:47 DL [id number] 07/20/24 13:58 DL 07/06/24 07/13/24 07/20/24 14:11 14:06 13:47 Wound Center Nurse 1 #2 L LAT HEEL -Current Size (cm) - Length 2 -Current Size (cm) - Width 0.7 -Current Size (cm) - Depth 0.1 -Total Square Cm 1.4 -Photo Taken No -Tunneling No -Undermining/Tunneling No -Circular Undermining No -Exudate Amt None Present -Wound Margin Flat & Intact -Granulation Amt Large (67-100%) -Granulation Quality Pale,[place] -Texture (Bell-wound Skin Appearance) Assessed -Moisture (Bell-wound Skin Appearance) Assessed -Color (Bell-wound Skin Appearance) Assessed -Temperature (Bell-wound Skin No Abnormality Appearance) (Pt Warm) -Tenderness on Palpation (Bell-wound No Skin Appearance) -Ulcer Cleansing Soap and Water -Foul Odor after Cleansing No -Anesthetic Used 5% Lidocaine Gel 3-left foot -Current Size (cm) - Length 0.6 -Current Size (cm) - Width 1.6 -Current Size (cm) - Depth 0.1 -Total Square Cm 0.96 -Exudate Amt Medium -Exudate Type Serosanguineous -Wound Margin Distinct, Outline Attached -Granulation Amt Small (1-33%) -Granulation Quality [place] -Necrosis Amt Large (67-100%) -Necrotic Tissue Type Adherent Slough -Structure Exposed N/A -Texture (Bell-wound Skin Appearance) Scarring -Moisture (Bell-wound Skin Appearance) No Abnormality -Color (Bell-wound Skin Appearance) No Abnormality -Temperature (Bell-wound Skin No Abnormality Appearance) (Pt Warm) -Ulcer Cleansing Rinsed/ Irrigated with Saline -Foul Odor after Cleansing No -Anesthetic Used 5% Lidocaine Gel #1- L MEDIAL ANKLE -Combined with other wound No -Current Size (cm) - Length 1.1 1 1 -Current Size (cm) - Width 1.0 1.1 1 -Current Size (cm) - Depth 0.2 0.2 0.3 -Total Square Cm 1.10 1.1 1 -Photo Taken No Yes -Tunneling No No -Undermining/Tunneling No No -Undermining/Tunneling Starts (O'clock 7 ) -Undermining/Tunneling Ends (O'clock) 11 -Maximum Distance (cm) 0.2 -Circular Undermining No No -Exudate Amt Small Medium Medium -Exudate Type Serosanguineous Serosanguineous Serosanguineous -Wound Margin Thickened & Thickened & Distinct, Rolled Under Rolled Under Outline Attached -Granulation Amt Small (1-33%) Medium (34-66%) None Present (0 %) -Granulation Quality Pale,[place] -Slough/Fibrin Yes -Necrosis Amt Large (67-100%) Small (1-33%) Large (67-100%) -Necrotic Tissue Type Adherent Slough Adherent Slough Adherent Slough -Structure Exposed N/A N/A -Texture (Bell-wound Skin Appearance) Assessed Assessed Scarring -Moisture (Bell-wound Skin Appearance) Assessed, Assessed No Abnormality Maceration -Color (Bell-wound Skin Appearance) Assessed Erythema No Abnormality -Temperature (Bell-wound Skin No Abnormality No Abnormality No Abnormality Appearance) (Pt Warm) (Pt Warm) (Pt Warm) -Tenderness on Palpation (Bell-wound No No Skin Appearance) -Ulcer Cleansing Soap and Water Wound Cleanser Rinsed/ Irrigated with Saline -Foul Odor after Cleansing No No No -Anesthetic Used 5% Lidocaine 5% Lidocaine 5% Lidocaine Gel Gel Gel Lower Limb Edema Present Yes Left Calf (cm) 28 32 29.8 Left Ankle (cm) 25 24.5 24.5 WC - Nurse 2 - General Ulcer CM Notes Start: 07/06/24 14:11 Freq: Status: Active Protocol: Activity Type Activity Date Activity User E-sign Co-sign Detail Recorded Client Recorded Date Recorded By Document 07/06/24 14:32 SONNY [id number] 07/06/24 14:39 JF Document 07/13/24 14:14 [id number] 07/13/24 14:25 JF Edit Result 07/13/24 14:14 JF (1) 000 07/19/24 11:58 JF Document 07/20/24 14:07 JF [id number] 07/20/24 14:11 JF (1) #1- L MEDIAL ANKLE - Apply Skin Sub - 1st 25 sq cm - Legs => 1 - Apply Skin Sub - 1st 25 sq cm - Feet 1 => 07/06/24 07/13/24 07/20/24 14:32 14:14 14:07 Wound Center Nurse 2 #2 L LAT HEEL -Correct Patient Yes -Correct Side, Site, Position No -Correct Procedure No -Procedure Performed No -Post Debridement (cm) - Length 0 -Post Debridement (cm) - Width 0 -Post Debridement (cm) - Depth 0 -Total Square (Post) (cm) 0 -Area of Debridement (cm) - Length 0 -Area of Debridement (cm) - Width 0 -Total Square (Area) (cm) 0 -Wound/Ulcer Outcome Healed- Epithelialized 3-left foot -Time 14:17 14:07 -Correct Patient Yes Yes -Correct Side, Site, Position Yes Yes -Correct Procedure Yes Yes -Procedure Performed Yes Yes -Type of Procedure Debridement Debridement -Clinical Debridement Subcutaneous Subcutaneous -Tissue Removed Subcutaneous Subcutaneous -Post Debridement (cm) - Length 0.8 0.6 -Post Debridement (cm) - Width 1.9 1.7 -Post Debridement (cm) - Depth 0.1 0.1 -Total Square (Post) (cm) 1.52 1.02 -Area of Debridement (cm) - Length 0.8 0.6 -Area of Debridement (cm) - Width 1.9 1.7 -Total Square (Area) (cm) 1.52 1.02 -Tunneling No No -Undermining/Tunneling No No -Circular Undermining No No -Wound/Ulcer Outcome Not Healed Not Healed -Ulcer Cleansing Rinsed/ Rinsed/ Irrigated with Irrigated with Saline Saline -Foul Odor after Cleansing No No -Bioengineered Tissue No -Bleeding Controlled with Pressure Pressure -Treatment Response Procedure Procedure Tolerated Well Tolerated Well -Offloading Yes Yes -Type of Offloading Surgical Shoe Surgical Shoe -Debridement - Subq, 1st 20sq cm Yes Yes #1- L MEDIAL ANKLE -Time 14:35 14:14 14:09 -Correct Patient Yes Yes Yes -Correct Side, Site, Position Yes Yes Yes -Correct Procedure Yes Yes Yes -Procedure Performed Yes Yes Yes -Type of Procedure Debridement Debridement Debridement -Clinical Debridement Muscle / Fascia Muscle / Fascia Muscle / Fascia -Tissue Removed Muscle Muscle Tendon -Post Debridement (cm) - Length 1.1 1.1 1.0 -Post Debridement (cm) - Width 1.0 1.2 1.1 -Post Debridement (cm) - Depth 0.2 0.2 0.3 -Total Square (Post) (cm) 1.10 1.32 1.10 -Area of Debridement (cm) - Length 1.1 1.1 1.0 -Area of Debridement (cm) - Width 1.0 1.2 1.1 -Total Square (Area) (cm) 1.10 1.32 1.10 -Tunneling No No No -Undermining/Tunneling No No No -Circular Undermining No No No -Wound/Ulcer Outcome Not Healed Not Healed Not Healed -Ulcer Cleansing Rinsed/ Rinsed/ Rinsed/ Irrigated with Irrigated with Irrigated with Saline Saline Saline -Foul Odor after Cleansing No No No -Bioengineered Tissue Yes Yes Yes -Type of Bioengineered Tissue Epicord Epifix 18mm Epicord Disc -Expiration Date 10/31/28 01/30/29 10/31/28 -Product Lot Number [id number] -Percent Used 100 505 100 -Lot number of Saline Used [id number] -Bleeding Controlled with Pressure Pressure Pressure -Treatment Response Procedure Procedure Procedure Tolerated Well Tolerated Well Tolerated Well -Offloading No Yes No -Type of Offloading Surgical Shoe -Debridement - Subq, 1st 20sq cm No No -Debridement - Muscle / Fascia, 1st No No No 20sq cm -Apply Skin Sub - 1st 25 sq cm - Legs 1 1 1 -Epicord Application 1-4 (per sq cm) 6 6 -Epifix 18mm Disc Application 1-4 3 Pain Scale: 0-10 Numeric Is Patient Pain Free? Yes Yes Yes - Nurse 3 - General Ulcer D/C NN Start: 07/06/24 14:11 Freq: Status: Active Protocol: Activity Type Activity Date Activity User E-sign Co-sign Detail Recorded Client Recorded Date Recorded By Document 07/06/24 14:48 KW [id number] 07/06/24 14:48 KW Document 07/13/24 14:34 ML [id number] 07/13/24 14:36 ML Document 07/20/24 14:20 KW [id number] 07/20/24 14:20 KW 07/06/24 07/13/24 07/20/24 14:48 14:34 14:20 Wound Care Center Nurse 3 3-left foot -Primary Dressing Applied Silicone Border Silicone Border Foam 4x4 Foam 4x4 -Primary Dressing Covered/Secured with Dry Gauze -Silicone Border Foam 4x4 1 1 #1- L MEDIAL ANKLE -Primary Dressing Applied Silicone Border Silicone Border Silicone Border Foam 4x4, Foam 6x6 Foam 4x4 Silicone Border Foam 6x6 -Silicone Border Foam 4x4 1 1 -Silicone Border Foam 6x6 1 1 LLE -Tubular Bandage Single Layer Single Layer Single Layer -Size of Tubigrip Used Size F Size F Size F -Size F ($) 1 1 1 Pain Scale: 0-10 Numeric Is Patient Pain Free? Yes Yes Yes Pain Scale: Adult NonVerbal Is Patient Pain Free? 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 All findings were discussed with the patient. All questions were answered to the patient's satisfaction. Excisional debridement down to including subcutaneous tissue, fascia and muscle to the left lower extremity full-thickness wound with a number 3 mm dermal curette and #15 blade without incident. Predebridement measurement was 0.9 x 1.0 x 0.2 cm. Postdebridement measurement is 1.0 x 1.1 x 0.3 cm. EpiCord 2.0 x 3.0 cm disc was applied to the left full-thickness ulceration [id number]% use. Fifth application. The graft site was free and clear of any infection. The wound/skin graft substitute was dressed with nonadherent bandagesecured in place with Steri-Strips followed by bolster dressing as well as a double layer Tubigrip. Excisional debridement down to and including subcutaneous tissue to the sanguinous crust to the dorsal aspect of the first metatarsophalangeal joint of the left foot done without incident with a sterile pickup and 15 blade. Predebridement measurement was 0.5 x 1.5 x 0.1 cm. Postdebridement measurement was 0.6 x 1.7 x 0.1 cm. Educated the patient to keep his dressing clean dry and intact. Review of the patient's microbiology results show evidence of bacterial growth but at this time there is no concern for soft tissue infection even though bacterial had grown. Will hold off on oral antibiotics at this time. If the patient shows up in 1 week and there is increase in erythema we will move forward with oral antibiotic coverage which the patient was understanding of. Samples of dietary supplements Joon, Ensure were dispensed to the patient and educated the patient and his where to purchase these products. Expressed recommendation for dietary supplementation to help improve wound healing. The patient will follow-up with Dr. Mazariegos in 1 week. (2) Other specified peripheral vascular diseases: CODE(S): I73.89 - Other specified peripheral vascular diseases (3) Non-pressure chronic ulcer of other part of left foot with fat layer exposed: CODE(S): L97.522 - Non-pressure chronic ulcer of other part of left foot with fat layer exposed 07/20/24 1432 <Electronically signed by Rasta Mazariegos DPM> Cosigner Signature (if applicable): CC: ~ Signed [facility] Work Phone: 1(729) 132-158505-19-2025 Telephone encounter Note* Telephone Encounter - Leslie French - 07/18/2024 9:30 AM EDT Patient is scheduled to come in today, 07/18/24 Leslie Flores [facility]05-19-2025 Miscellaneous Notes* Telephone Encounter - Leslie French - 07/18/2024 9:30 AM EDT Patient is scheduled to come in today, 07/18/24 Leslie Nielsen Pss * Telephone Encounter - Salazar Meraz DO - 07/14/2024 5:26 PM EDT Currently scheduled for lab work on 07/27. Can do it tomorrow or early next week. Can see what is best for him and Christina. Salazar Meraz DO [facility] Miscellaneous Notes* Telephone Encounter - Salazar Meraz DO - 07/15/2024 5:40 PM EDT I spoke with Dr. Otoole. * Telephone Encounter - Annabella Chiang LPN - 07/15/2024 2:[address] Otoole [facility] would like to speak with you concerning this pt. Please call on his cell # [phone]. Annabella Chiang LPN documented [facility] Telephone encounter Note * Telephone Encounter - Salazar Meraz DO - 07/15/2024 5:40 PM EDT I spoke with Dr. Otoole. [facility]05-16-2025 Telephone encounter Note* Telephone Encounter - Annabella Chiang LPN - 07/15/2024 2:[address] Otoole [facility] would like to speak with you concerning this pt. Please call on his cell # [phone]. Annabella Chiang LPN [facility]05-16-2025 Telephone encounter Note* Telephone Encounter - Sylvie Ortega - 07/15/2024 11:02 AM EDT This has been rescheduled lvm to inform pt. Sylvie Ortega [facility]05-16-2025 Miscellaneous Notes* Telephone Encounter - Sylvie Ortega - 07/15/2024 11:02 AM EDT This has been rescheduled lvm to inform pt. Sylvie Ortega * Telephone Encounter - Laura Cabral RN - 07/15/2024 10:19 AM EDT PSS's- would you please move Bills lab appointment to Thursday07/18/24? His was in today and asked that we move it up for pt convenience. documented in this encounterProm[facility] Telephone encounter Note * Telephone Encounter - Laura Cabral RN - 07/15/2024 10:19 AM EDT PSS's- would you please move Bills lab appointment to Thursday07/18/24? His was in today and asked that we move it up for pt convenience. [facility]05-15-2025 Telephone encounter Note* Telephone Encounter - Salazar Meraz DO - 07/14/2024 5:26 PM EDT Currently scheduled for lab work on 07/27. Can do it tomorrow or early next week. Can see what is best for him and Christina. Salazar Meraz DO [facility]05-14-2025 Progress note Author Rasta Mazariegos [facility] Note Date/Time July 13, 2024 3:02p m [facility] [address] [place] [address] Progress Note - Wound Care 07/13/24 1456 MR#: [id number] Acct: [id number] Name: OSWALDO CORLEY Rep #:[id number] : 1940 83 From: Rasta Carr PM PCP: Dr. Mei Cummins MD Status:RE G RCR Location: History of Present Illness Date of Service: 07/13/24 Chief Complaint: Left medial ankle ulcer History of Wound: Patient is a very pleasant 83 year old male with a left medialankle ulcer that he has been seeing residential service technician, Dr. Viveros. Patient has a significant history for COPD that he sees Palliative care to help manage. He is on home O2. He also has a history of Prostate CA, Squamous carcinoma of left lung, HTN, anxiety and depression, AAA without rupture, CAD, coronary artery stent placement (multiple), CABG x 3, former smoker, PAD, PBH, and pulmonary embolism- on anticoagulants, and hyperlipidemia. He has had arterial studies inthe past and had some vascular procedures (by Dr. Vigil) to his left leg. He denies hx of diabetes. His providers are all with [facility]. He has had this left medial ankle ulcer for 3 months. He has been placing Santyl covered with [place] SAP. There has not been much improvement to this area. He states that he was referred to see us by [facility] and that Dr. Viveros also suggested he get a second opinion. He is on a new medication that his states is an antibiotic but they are unsure of the name. He denies fever, chills, nausea or vomiting. He comes in today for further evaluation and treatment. Progress of Wound: Stable full-thickness wound medial left ankle. Subjective Subjective Mr. Corley is a 83-year-old male presenting to clinic today follow-up evaluationof full-thickness wound to the medial ankle left lower extremity. He has left the amnion skin graft substitute clean dry and intact. He also is complaining to some redness to the big toe joint on the right foot secondary to trauma. He does have a scab to the area and has not been treating it. He is concerned for infection. He denies constitutional symptoms. No other pedal complaints at this time. Objective Data Objective Data Vital Signs: Vital Signs Temp Pulse Resp BP Pulse Ox O2 Del Method O2 Flow Rate 96.9 F L 75 18 98/65 93 Nasal Cannula 4 07/13/24 14:06 07/13/24 14:06 07/13/24 14:06 07/13/24 14:06 07/06/24 14:11 07/06/24 14:11 07/06/24 14:11 Oxygen Flow Rate (L/min) 4 Oxygen Delivery Method Nasal Cannula Weight: 74.843 kg Body Mass Index (BMI) 22.4 Lab / Micro Data Micro: Microbiology 06/08/24 11:10 Wound - Ankle Gram Stain - Final 06/08/24 11:10 Wound - Ankle Wound Culture - Final Staphylococcus aureus Coag Negative Staph 06/08/24 11:10 Wound - Ankle Anaerobic Culture - Final No anaerobic bacteria isolated. 06/01/24 12:17 Ulcer, Decubitus - Ankle Gram Stain - Final 06/01/24 12:17 Ulcer, Decubitus - Ankle Wound Culture - Final Corynebacterium striatum 06/01/24 12:17 Ulcer, Decubitus - Ankle Anaerobic Culture - Final No anaerobic bacteria isolated. Physical Exam Narrative Vascular: DP and PT pulses are faintly palpable. CFT is brisk. Blanchable erythema appreciated to the medial ankle and first metatarsophalangeal joint to the left foot. Skin temp great is warm to cool from proximal ankles to distal digits left lower extremity. Neurological: Light touch intact. Patient does despond painful stimuli. Dermatological: Evidence of soft tissue abrasion to the first metatarsal phalangeal joint with sanguinous crust that was debrided with a full-thickness wound measuring 0.8 x 1.9 x 0.1 cm. Full-thickness wound to the medial left ankle measuring 1.1 x 1.2 x 0.1 cm. Blanchable erythema is appreciated to the periwound to both ulcer sites. No drainage. Negative probe to bone. Excisional debridement down to including subcutaneous tissue, fascia and muscle to the left lower extremity full-thickness wound with a number 3 mm dermal curette and #15 blade without incident. Predebridement measurement was 1.0 x 1.0 x 0.1 cm. Postdebridement measurement is 1.1 x 1.2 x 0.2 cm. EpiFix 18 mm disc was applied to the left full-thickness ulceration with 100% use. Fourth application. The graft site was free and clear of any infection. The wound/skin graft substitute was dressed with nonadherent bandage secured in place with Steri-Strips followed by bolster dressing as well as a double layer Tubigrip. Excision debridement down to and including subcutaneous tissue to the sanguinouscrust to the dorsal aspect of the first metatarsophalangeal joint of the left foot done without incident with a sterile pickup and 15 blade. Predebridement measurement was sanguinous crust. Postdebridement measurement was 0.8 x 1.9 x 0.1 cm. Musculoskeletal: Muscle strength 5 and 5 in all quadrants bilateral. Mild pain to palpation to full-thickness wound to the left lower extremity medial ankle. No pain with calf pressure. Debridement Note Debridement Note Debridement Free Text: Excisional debridement down to including subcutaneous tissue, fascia and muscle to the left lower extremity full-thickness wound with a number 3 mm dermal curette and #15 blade without incident. Predebridement measurement was 1.0 x 1.0 x 0.1 cm. Postdebridement measurement is 1.1 x 1.2 x 0.2 cm. EpiFix 18 mm disc was applied to the left full-thickness ulceration with 100% use. Fourth application. The graft site was free and clear of any infection. The wound/skin graft substitute was dressed with nonadherent bandage secured in place with Steri-Strips followed by bolster dressing as well as a double layer Tubigrip. Excision debridement down to and including subcutaneous tissue to the sanguinouscrust to the dorsal aspect of the first metatarsophalangeal joint of the left foot done without incident with a sterile pickup and 15 blade. Predebridement measurement was sanguinous crust. Postdebridement measurement was 0.8 x 1.9 x 0.1 cm. Post-Debridement Measurements and Additional Note: Post-Debridement Measurements/Treatment WC - Nurse 1 - General Ulcer Assessment Start: 07/06/24 14:11 Freq: Status: Active Protocol: MILENA Activity Type Activity Date Activity User E-sign Co-sign Detail Recorded Client Recorded Date Recorded By Document 07/06/24 14:11 UT [id number] 07/06/24 14:21 MT Document 07/13/24 14:06 RB [id number] 07/13/24 14:09 RB 07/06/24 07/13/24 14:11 14:06 - Today's Visit Information Type of service Follow-up Visit Follow-up Visit (Physician/LEGAL STENOGRAPHER (Physician/LEGAL STENOGRAPHER ) ) Arrival Mode Ambulatory Wheelchair Transfer Assistance None Accompanied by Patient Identification Verified (Name & Yes Yes ) Patient Requires Transmission-Based No Precautions Safety Precautions Fall Prevention Height and Weight Body Mass Index (BMI) 22.4 22.4 BMI Classification Normal Normal Vital Signs Temperature (97.8 F-99.1 F) 97 F L 96.9 F L Temperature Source Temporal Temporal Pulse Rate (60-100) 72 75 Pulse Location Monitor Monitor Respiratory Rate (12-18) 22 H 18 Respiratory rate source Observation Observation Pulse Oximetry 93 Oxygen Delivery Method Nasal Cannula O2 L/MIN (L/min) 4 Blood Pressure (90/60-120/80) 104/49 L 98/65 Blood Pressure Mean (mm Hg) 67 76 Source Monitor Monitor Position Sitting Semi-Fowlers Blood Pressure Location Right Arm Left Arm History Since Last Visit- (Skip if this is Patient's initial visit) Have you changed medications since your No last visit? Any new allergies or adverse reactions No Had a fall/change in ADL's that may No increase risk of falls Signs or symptoms of abuse and/or No neglect since last visit Have you been in the hospital since your No last visit? Has dressing in place as prescribed Yes Yes Has compression in place as prescribed Yes No Has offloadiing in place as prescribed Yes N/A Experienced any changes in pain level or Yes No management Left Footwear Regular Shoe Right Footwear Regular Shoe Pain Scale: 0-10 Numeric Is Patient Pain Free? Yes Yes FABIAN - Nurse 1 - General Ulcer Measurement Start: 07/06/24 14:11 Freq: Status: Active Protocol: Activity Type Activity Date Activity User E-sign Co-sign Detail Recorded Client Recorded Date Recorded By Document 07/06/24 14:11 MT [id number] 07/06/24 14:21 MT Document 07/13/24 14:06 RB [id number] 07/13/24 14:09 RB 07/06/24 07/13/24 14:11 14:06 Wound Center Nurse 1 #2 L LAT HEEL -Current Size (cm) - Length 2 -Current Size (cm) - Width 0.7 -Current Size (cm) - Depth 0.1 -Total Square Cm 1.4 -Photo Taken No -Tunneling No -Undermining/Tunneling No -Circular Undermining No -Exudate Amt None Present -Wound Margin Flat & Intact -Granulation Amt Large (67-100%) -Granulation Quality Pale,[place] -Texture (Bell-wound Skin Appearance) Assessed -Moisture (Bell-wound Skin Appearance) Assessed -Color (Bell-wound Skin Appearance) Assessed -Temperature (Bell-wound Skin No Abnormality Appearance) (Pt Warm) -Tenderness on Palpation (Bell-wound No Skin Appearance) -Ulcer Cleansing Soap and Water -Foul Odor after Cleansing No -Anesthetic Used 5% Lidocaine Gel #1- L MEDIAL ANKLE -Combined with other wound No -Current Size (cm) - Length 1.1 1 -Current Size (cm) - Width 1.0 1.1 -Current Size (cm) - Depth 0.2 0.2 -Total Square Cm 1.10 1.1 -Photo Taken No Yes -Tunneling No No -Undermining/Tunneling No No -Circular Undermining No No -Exudate Amt Small Medium -Exudate Type Serosanguineous Serosanguineous -Wound Margin Thickened & Thickened & Rolled Under Rolled Under -Granulation Amt Small (1-33%) Medium (34-66%) -Granulation Quality Pale,[place] -Slough/Fibrin Yes -Necrosis Amt Large (67-100%) Small (1-33%) -Necrotic Tissue Type Adherent Slough Adherent Slough -Structure Exposed N/A -Texture (Bell-wound Skin Appearance) Assessed Assessed -Moisture (Bell-wound Skin Appearance) Assessed, Assessed Maceration -Color (Bell-wound Skin Appearance) Assessed Erythema -Temperature (Bell-wound Skin No Abnormality No Abnormality Appearance) (Pt Warm) (Pt Warm) -Tenderness on Palpation (Bell-wound No No Skin Appearance) -Ulcer Cleansing Soap and Water Wound Cleanser -Foul Odor after Cleansing No No -Anesthetic Used 5% Lidocaine 5% Lidocaine Gel Gel Lower Limb Edema Present Yes Left Calf (cm) 28 32 Left Ankle (cm) 25 24.5 WC - Nurse 2 - General Ulcer CM Notes Start: 07/06/24 14:11 Freq: Status: Active Protocol: Activity Type Activity Date Activity User E-sign Co-sign Detail Recorded Client Recorded Date Recorded By Document 07/06/24 14:32 [id number] 07/06/24 14:39 Document 07/13/24 14:14 [id number] 07/13/24 14:25 JF 07/06/24 07/13/24 14:32 14:14 Wound Center Nurse 2 #2 L LAT HEEL -Correct Patient Yes -Correct Side, Site, Position No -Correct Procedure No -Procedure Performed No -Post Debridement (cm) - Length 0 -Post Debridement (cm) - Width 0 -Post Debridement (cm) - Depth 0 -Total Square (Post) (cm) 0 -Area of Debridement (cm) - Length 0 -Area of Debridement (cm) - Width 0 -Total Square (Area) (cm) 0 -Wound/Ulcer Outcome Healed- Epithelialized 3-left foot -Time 14:17 -Correct Patient Yes -Correct Side, Site, Position Yes -Correct Procedure Yes -Procedure Performed Yes -Type of Procedure Debridement -Clinical Debridement Subcutaneous -Tissue Removed Subcutaneous -Post Debridement (cm) - Length 0.8 -Post Debridement (cm) - Width 1.9 -Post Debridement (cm) - Depth 0.1 -Total Square (Post) (cm) 1.52 -Area of Debridement (cm) - Length 0.8 -Area of Debridement (cm) - Width 1.9 -Total Square (Area) (cm) 1.52 -Tunneling No -Undermining/Tunneling No -Circular Undermining No -Wound/Ulcer Outcome Not Healed -Ulcer Cleansing Rinsed/ Irrigated with Saline -Foul Odor after Cleansing No -Bioengineered Tissue No -Bleeding Controlled with Pressure -Treatment Response Procedure Tolerated Well -Offloading Yes -Type of Offloading Surgical Shoe -Debridement - Subq, 1st 20sq cm Yes #1- L MEDIAL ANKLE -Time 14:35 14:14 -Correct Patient Yes Yes -Correct Side, Site, Position Yes Yes -Correct Procedure Yes Yes -Procedure Performed Yes Yes -Type of Procedure Debridement Debridement -Clinical Debridement Muscle / Fascia Muscle / Fascia -Tissue Removed Muscle Muscle -Post Debridement (cm) - Length 1.1 1.1 -Post Debridement (cm) - Width 1.0 1.2 -Post Debridement (cm) - Depth 0.2 0.2 -Total Square (Post) (cm) 1.10 1.32 -Area of Debridement (cm) - Length 1.1 1.1 -Area of Debridement (cm) - Width 1.0 1.2 -Total Square (Area) (cm) 1.10 1.32 -Tunneling No No -Undermining/Tunneling No No -Circular Undermining No No -Wound/Ulcer Outcome Not Healed Not Healed -Ulcer Cleansing Rinsed/ Rinsed/ Irrigated with Irrigated with Saline Saline -Foul Odor after Cleansing No No -Bioengineered Tissue Yes Yes -Type of Bioengineered Tissue Epicord Epifix 18mm Disc -Expiration Date 10/31/28 01/30/29 -Product Lot Number [id number] -Percent Used 100 505 -Lot number of Saline Used [id number] -Bleeding Controlled with Pressure Pressure -Treatment Response Procedure Procedure Tolerated Well Tolerated Well -Offloading No Yes -Type of Offloading Surgical Shoe -Debridement - Subq, 1st 20sq cm No -Debridement - Muscle / Fascia, 1st No No 20sq cm -Apply Skin Sub - 1st 25 sq cm - Legs 1 -Apply Skin Sub - 1st 25 sq cm - Feet 1 -Epicord Application 1-4 (per sq cm) 6 -Epifix 18mm Disc Application 1-4 3 Pain Scale: 0-10 Numeric Is Patient Pain Free? Yes Yes - Nurse 3 - General Ulcer D/C NN Start: 07/06/24 14:11 Freq: Status: Active Protocol: Activity Type Activity Date Activity User E-sign Co-sign Detail Recorded Client Recorded Date Recorded By Document 07/06/24 14:48 KW [id number] 07/06/24 14:48 KW Document 07/13/24 14:34 ML [id number] 07/13/24 14:36 ML 07/06/24 07/13/24 14:48 14:34 Wound Care Center Nurse 3 3-left foot -Primary Dressing Applied Silicone Border Foam 4x4 -Primary Dressing Covered/Secured with Dry Gauze -Silicone Border Foam 4x4 1 #1- L MEDIAL ANKLE -Primary Dressing Applied Silicone Border Silicone Border Foam 4x4, Foam 6x6 Silicone Border Foam 6x6 -Silicone Border Foam 4x4 1 -Silicone Border Foam 6x6 1 1 LLE -Tubular Bandage Single Layer Single Layer -Size of Tubigrip Used Size F Size F -Size F ($) 1 1 Pain Scale: 0-10 Numeric Is Patient Pain Free? 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 All findings were discussed with the patient. All questions were answered to the patient's satisfaction. Excisional debridement down to including subcutaneous tissue, fascia and muscle to the left lower extremity full-thickness wound with a number 3 mm dermal curette and #15 blade without incident. Predebridement measurement was 1.0 x 1.0 x 0.1 cm. Postdebridement measurement is 1.1 x 1.2 x 0.2 cm. EpiFix 18 mm disc was applied to the left full-thickness ulceration with 100% use. Fourth application. The graft site was free and clear of any infection. The wound/skin graft substitute was dressed with nonadherent bandage secured in place with Steri-Strips followed by bolster dressing as well as a double layer Tubigrip. Excision debridement down to and including subcutaneous tissue to the sanguinouscrust to the dorsal aspect of the first metatarsophalangeal joint of the left foot done without incident with a sterile pickup and 15 blade. Predebridement measurement was sanguinous crust. Postdebridement measurement was 0.8 x 1.9 x 0.1 cm. Educated the patient did not elevate his legs while in bed as it is causing decreased blood flow to the by the lower extremity. He will just have his legs propped up on his bed as he normal. We will try this for approximately 1 week to see if the patient's swelling improves. He will continue to wear the compression wrap as educated. Culture was taken of the new full-thickness wound of the first metatarsophalangeal joint of the left foot. No antibiotics will be described atthis time. Will add antibiotics to treatment as needed. The patient will follow-up with Dr. Mazariegos in 1 weeks. (2) Other specified peripheral vascular diseases: CODE(S): I73.89 - Other specified peripheral vascular diseases (3) Non-pressure chronic ulcer of other part of left foot with fat layer exposed: CODE(S): L97.522 - Non-pressure chronic ulcer of other part of left foot with fat layer exposed 07/13/24 1502 <Electronically signed by Rasta Mazariegos DPJustus> Cosigner Signature (if applicable): CC: ~ Signed [facility] Work Phone: [phone]) 569-373805-07-2025 Progress note Author Rasta Mazariegos [facility] Note Date/Time July 06, 2024 2:44pm [facility] [address] [place] [address] Progress Note - Wound Care 07/06/24 1441 MR#: [id number] Acct: [id number] Name: OSWALDO CORLYE Rep #:[id number] : 1940 83 From: Rasta Carr PM PCP: Dr. Mei Cummins MD Status:RE G RCR Location: History of Present Illness Date of Service: 07/06/24 Chief Complaint: Left medial ankle ulcer History of Wound: Patient is a very pleasant 83 year old male with a left medialankle ulcer that he has been seeing residential service technician, Dr. Viveros. Patient has a significant history for COPD that he sees Palliative care to help manage. He is on home O2. He also has a history of Prostate CA, Squamous carcinoma of left lung, HTN, anxiety and depression, AAA without rupture, CAD, coronary artery stent placement (multiple), CABG x 3, former smoker, PAD, PBH, and pulmonary embolism- on anticoagulants, and hyperlipidemia. He has had arterial studies inthe past and had some vascular procedures (by Dr. Vigil) to his left leg. He denies hx of diabetes. His providers are all with [facility]. He has had this left medial ankle ulcer for 3 months. He has been placing Santyl covered with [place] SAP. There has not been much improvement to this area. He states that he was referred to see us by [facility] and that Dr. Viveros also suggested he get a second opinion. He is on a new medication that his states is an antibiotic but they are unsure of the name. He denies fever, chills, nausea or vomiting. He comes in today for further evaluation and treatment. Progress of Wound: Stable full-thickness wound medial left ankle. Subjective Subjective Mr. Corley is a 83-year-old male presenting to the wound care center today follow-up evaluation of full-thickness wound to the medial left ankle as well asnew abrasion to the first metatarsophalangeal joint of the left foot. Patient struck his foot with his walker causing an abrasion that is healing uneventfullyto the first metatarsophalangeal joint of the left foot. He has left his dressing clean dry and intact. The patient did miss his last appointment secondary to feeling under the weather and is presenting today for further and continued evaluation. He denies any constitutional symptoms. No other pedal complaints at this time. Objective Data Objective Data Vital Signs: Vital Signs Temp Pulse Resp BP Pulse Ox O2 Del Method O2 Flow Rate 97 F L 72 22 H 104/49 L 93 Nasal Cannula 4 07/06/24 14:11 07/06/24 14:11 07/06/24 14:11 07/06/24 14:11 07/06/24 14:11 07/06/24 14:11 07/06/24 14:11 Oxygen Flow Rate (L/min) 4 Oxygen Delivery Method Nasal Cannula Weight: 74.843 kg Body Mass Index (BMI) 22.4 Lab / Micro Data Micro: Microbiology 06/08/24 11:10 Wound - Ankle Gram Stain - Final 06/08/24 11:10 Wound - Ankle Wound Culture - Final Staphylococcus aureus Coag Negative Staph 06/08/24 11:10 Wound - Ankle Anaerobic Culture - Final No anaerobic bacteria isolated. 06/01/24 12:17 Ulcer, Decubitus - Ankle Gram Stain - Final 06/01/24 12:17 Ulcer, Decubitus - Ankle Wound Culture - Final Corynebacterium striatum 06/01/24 12:17 Ulcer, Decubitus - Ankle Anaerobic Culture - Final No anaerobic bacteria isolated. Physical Exam Narrative Vascular: DP and PT pulses are faintly palpable. CFT is brisk. No erythema appreciated. Skin temp great is warm to cool from proximal ankles to distal digits left lower extremity. Neurological: Light touch intact. Patient does despond painful stimuli. Dermatological: Soft tissue abrasion with sanguinous crust measuring 0.1 x 0.1 x0.1 cm to the left first metatarsophalangeal joint. Full-thickness wound to themedial malleolus of the left lower extremity, measuring 1.1 x 1.0 x 0.2 cm. wound base is down to deltoid ligament. Blanchable erythema to periwound with no sign of infection. Excisional debridement down to including subcutaneous tissue, fascia and muscle to the left lower extremity full-thickness wound with a number 3 mm dermal curette and #15 blade without incident. Predebridement measurement was 1.0 x 0.9 x 0.1 cm. Postdebridement measurement is 1.1 x 1.0 x 0.2 cm. EpiFix cord 2.0 x 3.0 cm was applied to the left full-thickness ulceration with 100% use. 3rd application. The graft site was free and clear of any infection. The wound/skin graft substitute was dressed with nonadherent bandage secured inplace with Steri-Strips followed by bolster dressing as well as a double layer Tubigrip. Musculoskeletal: Muscle strength 5 and 5 in all quadrants bilateral. Mild pain to palpation to full-thickness wound to the left lower extremity medial ankle. No pain with calf pressure. Debridement Note Debridement Note Debridement Free Text: Excisional debridement down to including subcutaneous tissue, fascia and muscle to the left lower extremity full-thickness wound with a number 3 mm dermal curette and #15 blade without incident. Predebridement measurement was 1.0 x 0.9 x 0.1 cm. Postdebridement measurement is 1.1 x 1.0 x 0.2 cm. EpiFix cord 2.0 x 3.0 cm was applied to the left full-thickness ulceration with 100% use. 3rd application. The graft site was free and clear of any infection. The wound/skin graft substitute was dressed with nonadherent bandage secured inplace with Steri-Strips followed by bolster dressing as well as a double layer Tubigrip. Post-Debridement Measurements and Additional Note: Post-Debridement Measurements/Treatment WC - Nurse 1 - General Ulcer Assessment Start: 07/06/24 14:11 Freq: Status: Active Protocol: .[place]IN[place] Activity Type Activity Date Activity User E-sign Co-sign Detail Recorded Client Recorded Date Recorded By Document 07/06/24 14:11 UT [id number] 07/06/24 14:21 UT 07/06/24 14:11 - Today's Visit Information Type of service Follow-up Visit (Physician/LEGAL STENOGRAPHER ) Arrival Mode Ambulatory Accompanied by Patient Identification Verified (Name & Yes ) Safety Precautions Fall Prevention Height and Weight Body Mass Index (BMI) 22.4 BMI Classification Normal Vital Signs Temperature (97.8 F-99.1 F) 97 F L Temperature Source Temporal Pulse Rate (60-100) 72 Pulse Location Monitor Respiratory Rate (12-18) 22 H Respiratory rate source Observation Pulse Oximetry 93 Oxygen Delivery Method Nasal Cannula O2 L/MIN (L/min) 4 Blood Pressure (90/60-120/80) 104/49 L Blood Pressure Mean (mm Hg) 67 Source Monitor Position Sitting Blood Pressure Location Right Arm History Since Last Visit- (Skip if this is Patient's initial visit) Has dressing in place as prescribed Yes Has compression in place as prescribed Yes Has offloadiing in place as prescribed Yes Experienced any changes in pain level or Yes management Left Footwear Regular Shoe Right Footwear Regular Shoe Pain Scale: 0-10 Numeric Is Patient Pain Free? Yes - Nurse 1 - General Ulcer Measurement Start: 07/06/24 14:11 Freq: Status: Active Protocol: Activity Type Activity Date Activity User E-sign Co-sign Detail Recorded Client Recorded Date Recorded By Document 07/06/24 14:11 UT [id number] 07/06/24 14:21 UT 07/06/24 14:11 Wound Center Nurse 1 #2 L LAT HEEL -Current Size (cm) - Length 2 -Current Size (cm) - Width 0.7 -Current Size (cm) - Depth 0.1 -Total Square Cm 1.4 -Photo Taken No -Tunneling No -Undermining/Tunneling No -Circular Undermining No -Exudate Amt None Present -Wound Margin Flat & Intact -Granulation Amt Large (67-100%) -Granulation Quality Pale,[place] -Texture (Bell-wound Skin Appearance) Assessed -Moisture (Bell-wound Skin Appearance) Assessed -Color (Bell-wound Skin Appearance) Assessed -Temperature (Bell-wound Skin No Abnormality Appearance) (Pt Warm) -Tenderness on Palpation (Bell-wound No Skin Appearance) -Ulcer Cleansing Soap and Water -Foul Odor after Cleansing No -Anesthetic Used 5% Lidocaine Gel #1- L MEDIAL ANKLE -Current Size (cm) - Length 1.1 -Current Size (cm) - Width 1.0 -Current Size (cm) - Depth 0.2 -Total Square Cm 1.10 -Photo Taken No -Tunneling No -Undermining/Tunneling No -Circular Undermining No -Exudate Amt Small -Exudate Type Serosanguineous -Wound Margin Thickened & Rolled Under -Granulation Amt Small (1-33%) -Granulation Quality Pale,[place] -Necrosis Amt Large (67-100%) -Necrotic Tissue Type Adherent Slough -Texture (Bell-wound Skin Appearance) Assessed -Moisture (Bell-wound Skin Appearance) Assessed, Maceration -Color (Bell-wound Skin Appearance) Assessed -Temperature (Bell-wound Skin No Abnormality Appearance) (Pt Warm) -Tenderness on Palpation (Bell-wound No Skin Appearance) -Ulcer Cleansing Soap and Water -Foul Odor after Cleansing No -Anesthetic Used 5% Lidocaine Gel Left Calf (cm) 28 Left Ankle (cm) 25 WC - Nurse 2 - General Ulcer CM Notes Start: 07/06/24 14:11 Freq: Status: Active Protocol: Activity Type Activity Date Activity User E-sign Co-sign Detail Recorded Client Recorded Date Recorded By Document 07/06/24 14:32 SONNY [id number] 07/06/24 14:39 SONNY 07/06/24 14:32 Wound Center Nurse 2 #2 L LAT HEEL -Correct Patient Yes -Correct Side, Site, Position No -Correct Procedure No -Procedure Performed No -Post Debridement (cm) - Length 0 -Post Debridement (cm) - Width 0 -Post Debridement (cm) - Depth 0 -Total Square (Post) (cm) 0 -Area of Debridement (cm) - Length 0 -Area of Debridement (cm) - Width 0 -Total Square (Area) (cm) 0 -Wound/Ulcer Outcome Healed- Epithelialized #1- L MEDIAL ANKLE -Time 14:35 -Correct Patient Yes -Correct Side, Site, Position Yes -Correct Procedure Yes -Procedure Performed Yes -Type of Procedure Debridement -Clinical Debridement Muscle / Fascia -Tissue Removed Muscle -Post Debridement (cm) - Length 1.1 -Post Debridement (cm) - Width 1.0 -Post Debridement (cm) - Depth 0.2 -Total Square (Post) (cm) 1.10 -Area of Debridement (cm) - Length 1.1 -Area of Debridement (cm) - Width 1.0 -Total Square (Area) (cm) 1.10 -Tunneling No -Undermining/Tunneling No -Circular Undermining No -Wound/Ulcer Outcome Not Healed -Ulcer Cleansing Rinsed/ Irrigated with Saline -Foul Odor after Cleansing No -Bioengineered Tissue Yes -Type of Bioengineered Tissue Epicord -Expiration Date 10/31/28 -Product Lot Number [id number] -Percent Used 100 -Lot number of Saline Used [id number] -Bleeding Controlled with Pressure -Treatment Response Procedure Tolerated Well -Offloading No -Debridement - Subq, 1st 20sq cm No -Debridement - Muscle / Fascia, 1st No 20sq cm -Apply Skin Sub - 1st 25 sq cm - Legs 1 -Epicord Application 1-4 (per sq cm) 6 Pain Scale: 0-10 Numeric Is Patient Pain Free? 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 All findings were discussed with the patient. All questions were answered to the patient's satisfaction. Excisional debridement down to including subcutaneous tissue, fascia and muscle to the left lower extremity full-thickness wound with a number 3 mm dermal curette and #15 blade without incident. Predebridement measurement was 1.0 x 0.9 x 0.1 cm. Postdebridement measurement is 1.1 x 1.0 x 0.2 cm. EpiFix cord 2.0 x 3.0 cm was applied to the left full-thickness ulceration with 100% use. 3rd application. The graft site was free and clear of any infection. The wound/skin graft substitute was dressed with nonadherent bandage secured inplace with Steri-Strips followed by bolster dressing as well as a double layer Tubigrip. Betadine paint was applied to the abrasion on the first metatarsophalangeal joint of the left foot. They will continue daily dressing changes as discussed. The patient will follow-up with Dr. Mazariegos in 1 weeks. (2) Other specified peripheral vascular diseases: CODE(S): I73.89 - Other specified peripheral vascular diseases 07/06/24 1444 <Electronically signed by Rasta Mazariegos DPM> Cosigner Signature (if applicable): CC: ~ Signed [facility] Work Phone: [phone] 139-223005-02-2025 History of Present illness Narrative* Mei Cummins MD - 07/01/2024 2:00 PM EDT Chief Complaint Patient presents with: Follow Up HPI Oswaldo Corley is a 83 year old male who presents here today for a 6 month follow up. Pt here with his for his routine follow up, generally seen every 3 months. Pt has been admitted into [facility] with multiple admissions due to Respiratory Failure, Hypoxia, and Lower GI bleed. Uro - Taking Flomax 0.4 mg once daily. GI - Hx of GI bleed. Had EGD done on 06/04/24. Did capsule swallow test to take pictures of his stomach. Recently seen by them yesterday to review results, mostly was negative. Did labs on him yesterday due to findings from capsule test. Checking for Crohn's disease as well as some other additional tests, due to inflammation. Pt states that he still has some intermittent nausea, unsure what the cause is. Has used some Zofran to help with symptoms. Reports BM's are getting back to normal, denies any blood. Anxiety/Depression - Chronic; overall stable with use of medication. Unsure why he has all these chronic conditions. Currently taking Ativan 1 mg TID and Cymbalta 30 mg once daily. reports pt has 3 refills on his Ativan currently. Pulm - Follows with [facility]m. Pt hx of respiratory failure, COPD, PE, multiple lung nodules, Pleural effusion, and lung cancer. Pt reports that breathing is difficult with ambulation, but does recover some when sitting down. On current regimen of Aviari HFA 230-21 mcg inhaler 2 puffs bid daily, ProAir HFA 90 mcg 2 puffs every 4 hrs prn, and Spriva Respimat 2.5 mcg 2 puffs once daily. Prednisone was d/c due to GI bleed. Pt d/c Daliresp due to having difficulty tolerating medication. Pt is on continuous O2, using 4-5 L. Uses [email or web address] for DME supplies. Cardio - Hx of CAD, s/p CABG w/stents, AAA, HTN, HLD, PE, and PAD. Pt follows with Dr. Manzano, Cardiology. Pt on current regimen of ASA 81 mg once daily, Lipitor 40 mg once daily, Zetia 10 mg once daily, Lasix 20 mg once daily, Lopressor 25 mg 0.25 tab po in the am and 0.5 tab po in the pm, and Nitro prn. Pt has not discussed Lopressor with Cardiology, but tolerates this dosage. Reports when taking 0.5 tab po bid he has increased dizziness and feeling off balance. Pain - Follows with Palliative Care and receives Oxycodone IR 5 mg 1 tab po TID daily and Tylenol prn. Also prescribed Cymbalta 30 mg once daily. PAD - Follows with Vascular for PAD. Derm - Hx of skin cancer, follows with Dermatology. Hem/Onc - Follows with Dr. Meraz for hx of prostate cancer, lung cancer and PE. Eliquis was held when he was in the Hospital and advised to check with Provider. Currently holding until testing is done with his stomach. Receiving Iron infusions, has one later today. Will be rechecking labs later this month to monitor. - Has Adv Dir/Living Will on file. Past medical history, appointments, medications, allergies reviewed. 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 Lung cancer (HCC) Prostate cancer (HCC) Dx Dec 2014, s/p radiation, on hormonal therapy Ulcer of right foot (HCC) 04/30/2022 Previous Surgical History PAST SURGICAL HISTORY Procedure Laterality Date ANGIOGRAM EXTREMITY COLONOSCOPY N/A 09/29/2023 [facility] COLONOSCOPY N/A 10/07/2023 [facility] EGD W/O [facility] SPEC VARICIES INJ N/A 09/29/2023 [facility] EGD W/O [facility] SPEC VARICIES INJ N/A 10/07/2023 [facility] LUNG BIOPSY Left needle biopsy LUNG SURGERY HX 02/20/20 lt lung nodule removed PAST SURGICAL HISTORY OF TURP PAST SURGICAL HISTORY OF 03/02/1999 triple bypass PAST SURGICAL HISTORY OF Left 09/04/2022 Skin biopsy left upper cheek face PAST SURGICAL HISTORY OF LE vascular Family History FAMILY HISTORY Problem Relation Age of Onset Cancer Mother 49 breast, bone Diabetes Father Heart Father Cancer Sister breast Emphysema Sister Smoker Diabetes Brother Heart Brother other (Other) Brother Parkinsons Diabetes Paternal Grandmother Heart Paternal Grandmother Patient Allergies ALLERGIES Allergen Reactions Imdur [Isosorbide M* Hives Black out and dizziness Current Medications Current Outpatient Medications on File Prior to Visit Medication Sig nitroglycerin sublingual (NITROSTAT) 0.4 mg SL tablet Dissolve 1 tablet under the tongue every 5 minutes as needed. LORazepam (ATIVAN) 1 mg tablet Take 1 tablet by mouth three times a day for 90 days. RESTASIS 0.05 % ophthalmic emulsion Use 1 Drop in both eyes two times a day. tamsulosin (FLOMAX) 0.4 mg Take 0.4 mg by mouth once daily. roflumilast (DALIRESP) 500 mcg tab Take 1 tablet by mouth once daily. apixaban (ELIQUIS) 5 mg tab(s) Take 1 tablet by mouth two times a day. iv contrast (will be provided with radiology test) CT Chest W -Inject, intravenously, once for 1 dose.No IV access, insert saline lock prior to the beginning of sedation, infusion, injection of imaging exam. Discontinue saline lock post exam. If Pt. has a central line or IVAD, may access for administration according to line specific nursing protocol. Once exam is complete flush line and de-accessaccording to line specific nursing protocol in the CT contrast administration guidelines link. predniSONE (DELTASONE) 10 mg tablet Take 1 tablet by mouth once daily. furosemide (LASIX) 20 mg tablet Take 1 tablet by mouth once daily. metoprolol tartrate, short acting, (LOPRESSOR) 25 mg tablet Take 0.5 tablets by mouth two times a day. Take 0.5 tab po bid. albuterol HFA (PROAIR HFA) 90 mcg/actuation inhaler Inhale 2 Puffs as instructed every 4 hours as needed for wheezing/shortness of breath. SPIRIVA RESPIMAT 2.5 mcg/actuation inhaler Inhale 2 Puffs as instructed once daily. collagenase (SANTYL) ointment Apply to affected area once daily. APPLY TO AFFECTED AREA OXYGEN, HOME THERAPY, 4-5 L/min by Nasal Cannula route continuous. atorvastatin (LIPITOR) 40 mg tablet Take 1 tablet by mouth once daily. ADVAIR HFA 230-21 mcg/actuation inhaler Inhale 2 Puffs as instructed two times a day. ezetimibe (ZETIA) 10 mg tablet Take 1 tablet by mouth once daily. acetaminophen 325 mg cap Take 650 mg by mouth every 8 hours as needed. oxyCODONE IR (ROXICODONE) 5 mg immediate release tablet Take 5 mg by mouth every 4 hours as needed. guaiFENesin (MUCINEX) 600 mg 12 hr tablet Take 1,200 mg by mouth two times a day. DULoxetine (CYMBALTA) 30 mg capsule Take 30 mg by mouth once daily. ondansetron (ZOFRAN) 4 mg tablet Take 4 mg by mouth every 8 hours as needed. aspirin, enteric coated (ASPIRIN, ENTERIC COATED) 81 mg EC tablet Take 81 mg by mouth once daily. No current facility-administered medications on file prior to visit. Social History Social History Tobacco Use Smoking status: Former Current packs/day: 0.00 Average packs/day: 2.0 packs/day for 40.0 years (80.0 ttl pk-yrs) Types: Cigarettes Start date: 11/08/1962 Quit date: 05/13/2002 Years since quittin.1 Smokeless tobacco: Never Vaping Use Vaping status: Never Used Substance Use Topics Alcohol use: Not Currently Alcohol/week: 3.0 standard drinks of alcohol Types: 3 Cans of beer per week Comment: light beer Drug use: No EXAM: BP 102/60 (BP Site: Left Arm, BP Position: Sitting, BP Cuff Size: Regular Adult) Pulse 72 Resp 20 Wt 76.7 kg (169 lb 1.5 oz) SpO2 97% BMI 23.58 kg/m General Appearance: Well appearing, alert, in no acute distress, well-hydrated, well nourished. On oxygen in office today. Lungs: Lungs clear to auscultation. No wheezing, rhonchi, rales.. Heart: RRR without murmur, gallop, or rubs. No ectopy. Health Maintenance List DTaP,Tdap,Td Vaccine(1 - Tdap) Never done Shingrix Vaccine(1 of 2) Never done Advance Directive Discussion due on 03/02/2024 Covid-19 Vaccine( season) due on 06/22/2024 LDL Cholesterol due on 06/22/2025 Diabetes Screening due on 06/23/2027 Influenza Vaccine Completed RSV Vaccine Completed Pneumococcal Vaccine: 50+ Completed Colorectal Cancer Screening Discontinued Data reviewed Results Only on 06/22/2024 Component Date Value Hemoglobin A1C 06/22/2024 5.4 Estimated Average Glucose 06/22/2024 108 Cholesterol, Total 06/22/2024 96 Triglyceride 06/22/2024 106 HDL Cholesterol 06/22/2024 38 (L) LDL Cholesterol, Calcula* 06/22/2024 38 Non HDL Cholesterol 06/22/2024 58 VLDL Cholesterol 06/22/2024 14 TC:HDL Ratio 06/22/2024 2.53 LDL:HDL Ratio 06/22/2024 1.00 Fasting Time 06/22/2024 12 Protein, Total 06/22/2024 6.0 (L) Albumin 06/22/2024 3.4 (L) Calcium, Total 06/22/2024 9.4 Bilirubin, Total 06/22/2024 0.2 Alkaline Phosphatase 06/22/2024 87 AST 06/22/2024 13 (L) ALT 06/22/2024 6 (L) Glucose 06/22/2024 104 (H) BUN 06/22/2024 17 Creatinine 06/22/2024 0.94 Sodium 06/22/2024 138 Potassium 06/22/2024 4.4 Chloride 06/22/2024 103 CO2 06/22/2024 29 Anion Gap 06/22/2024 6 (L) Estimated Glomerular Kirit* 06/22/2024 81 Appointment on 06/13/2024 Component Date Value WBC 06/13/2024 7.68 RBC 06/13/2024 3.18 (L) Hemoglobin 06/13/2024 8.4 (L) Hematocrit 06/13/2024 28.6 (L) MCV 06/13/2024 89.9 MCH 06/13/2024 26.4 MCHC 06/13/2024 29.4 (L) RDW-CV 06/13/2024 15.9 (H) Platelet Count 06/13/2024 184 MPV 06/13/2024 8.2 (L) Neutrophils % 06/13/2024 89.0 Abs Neut 06/13/2024 6.84 Lymphocytes % 06/13/2024 5.5 Abs Lymph 06/13/2024 0.42 (L) Monocytes % 06/13/2024 4.4 Abs Posey 06/13/2024 0.34 Eosinophils % 06/13/2024 0.4 Abs Eosin 06/13/2024 0.03 Basophils % 06/13/2024 0.3 Abs Baso 06/13/2024 <0.03 Immature Granulocytes % 06/13/2024 0.4 Abs Immature Gran 06/13/2024 0.03 NRBC 06/13/2024 0.0 Absolute nRBC 06/13/2024 <0.01 Diff Type 06/13/2024 Auto Iron 06/13/2024 30 (L) TIBC 06/13/2024 297 Transferrin Saturation 06/13/2024 10.1 (L) Ferritin 06/13/2024 72.3 Retic % 06/13/2024 3.0 (H) Abs Retic 06/13/2024 0.095 ASSESSMENT/PLAN: 1. Anxiety - ICD9: 300.00, ICD10: F41.9 (primary diagnosis) - Chronic; stable - Continue current medication regimen. 2. Depression, unspecified depression type - ICD9: 311, ICD10: F32.A - Chronic; stable - Continue current medication regimen. 3. Essential hypertension - ICD9: 401.9, ICD10: I10 - Controlled - Continue current medications - Recommend home blood pressure monitoring, to bring results to next visit - Encouraged sodium restriction, DASH or Mediterranean diet - Recommend regular aerobic exercise 4. Lower leg edema - ICD9: 782.3, ICD10: R60.0 - Stable - Continue current medication regimen. 5. Elevated glucose - ICD9: 790.29, ICD10: R73.09 - Continue to monitor - Was on chronic Prednisone 6. Hyperlipidemia, mixed - ICD9: 272.2, ICD10: E78.2 - Controlled - Continue current medications - Counseled on healthy diet and regular exercise 7. Coronary artery disease involving [place] coronary artery of [place] heart without angina pectoris- ICD9: 414.01, ICD10: I25.10 - Stable - Continue current medication regimen. - Cont f/u with Cardiology 8. S/P CABG x 3 - ICD9: V45.81, ICD10: Z95.1 - Continue routine f/u with Cardiology 9. PAD (peripheral artery disease) - ICD9: 443.9, ICD10: I73.9 - Stable 10. Prostate cancer (HCC) - ICD9: 185, ICD10: C61 - Cont f/u with Hem/Onc 11. Acute and chronic respiratory failure with hypoxia (HCC) - ICD9: 518.84, 799.02, ICD10: J96.21 - Stable today, f/u with Pulm - Continue current medication regimen. 12. Chronic pulmonary embolism without acute cor pulmonale, unspecified pulmonary embolism type (HCC) - ICD9: 416.2, ICD10: I27.82 - Continue current medication regimen. 13. Chronic obstructive pulmonary disease, unspecified COPD type (HCC) - ICD9: 496, ICD10: J44.9 - Continue current medication regimen. 14. Gastrointestinal hemorrhage associated with gastric ulcer - ICD9: 531.40, ICD10: K25.4 Cont f/u with GI 15. Iron 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 loss - ICD9: 280.0, ICD10: D50.0 - Cont f/u with Hem/Onc 16. Nausea - ICD9: 787.02, ICD10: R11.0 - Use Zofran 3 mo f/u I agree with the Chief Complaint, ROS, and Past Histories independently gathered by the clinical product support technician and the remaining scribed note accurately describes my personal service to the patient. Medical Decision Making: Problems: Moderate: 2+ stable chronic illnesses Data: Unique source(s) for external note(s) reviewed: 1 Risk: Moderate: Drug management Medical Decision Making Level: 4 - Moderate Mei Cummins MD The documentation for this note was completed by Vickie Carrillo MA acting as scribe for Mei Cummins MD. July 01, 2024 2:06 PM. Vickie Carrillo MA documented in this encounterProm[facility]05-02-20[facility] Telephone encounter Note* Telephone Encounter - Shala Gamble LISW - 06/22/2024 8:54 AM EDT Pt noted on [facility] 1st time treatment report. Pt has a non-oncology regimen. No social work followup indicated. YAMILA Oh-Tuan [facility]04-23-2025 Miscellaneous Notes* Telephone Encounter - Shala Gamble LISW - 06/22/2024 8:54 AM EDT Pt noted on [facility] 1st time treatment report. Pt has a non-oncology regimen. No social work followup indicated. SALOMON Oh documented in this encounterPromedica [facility]04-11-2025 Telephone encounter Note * Telephone Encounter - Alethea Dumont - 06/10/2024 9:15 AM EDT Scheduled lab with spouse [facility] Work Phone: 1(713) 457-108804-11-2025 Miscellaneous Notes* Telephone Encounter - Alethea Dumont - 06/10/2024 9:15 AM EDT Scheduled lab with spouse * Telephone Encounter - Salazar Meraz DO - 06/10/2024 8:43 AM EDT Filed. * Telephone Encounter - Donna Bell LPN - 06/10/2024 8:26 AM EDT Please assist with lab apt for CBC possible transfusion, iron studies and retic count. Orders pended. Donna Bell LPN * Telephone Encounter - Salazar Meraz DO - 06/09/2024 4:05 PM EDT CBC/poss trans/Iron studies and retic count on Thursday. Salazar Meraz DO * Telephone Encounter - Vickie Carrillo MA - 06/09/2024 9:33 AM EDT Review pt message. Did recommend reaching out to Dr. Meraz since he's the prescribing Provider. Notified pt that mychart message would be routed to Dr. Meraz and PCP to review. Vickie Carrillo MA documented in this encounterPromedica [facility] Hospital04-11-2025 Telephone encounter Note * Telephone Encounter - Salazar Meraz DO - 06/10/2024 8:43 AM EDT Filed. [facility]04-11-2025 Telephone encounter Note* Telephone Encounter - Donna Bell LPN - 06/10/2024 8:26 AM EDT Please assist with lab apt for CBC possible transfusion, iron studies and retic count. Orders pended. Donna Bell LPN [facility]04-10-2025 Telephone encounter Note* Telephone Encounter - Salazar Meraz DO - 06/09/2024 4:05 PM EDT CBC/poss trans/Iron studies and retic count on Thursday. Salazar Meraz DO [facility]04-10-2025 Telephone encounter Note* Telephone Encounter - Vickie Carrillo MA - 06/09/2024 9:33 AM EDT Review pt message. Did recommend reaching out to Dr. Meraz since he's the prescribing Provider. Notified pt that mychart message would be routed to Dr. Meraz and PCP to review. Vickie Carrillo MA [facility]04-10-2025 Telephone encounter Note* Telephone Encounter - Jamshid Brown APRN.CNP - 06/09/2024 6:05 AM EDT The following approved medication requests have been transmitted electronically. Requested Prescriptions Pending Prescriptions Disp Refills nitroglycerin sublingual (NITROSTAT) 0.4 mg SL tablet 25 tablet 1 Sig: Dissolve 1 tablet under the tongue every 5 minutes as needed. Jamshid Brown APRN.CNP [facility]04-10-2025 Miscellaneous Notes* Telephone Encounter - Jamshid Brown APRN.CNP - 06/09/2024 6:05 AM EDT The following approved medication requests have been transmitted electronically. Requested Prescriptions Pending Prescriptions Disp Refills nitroglycerin sublingual (NITROSTAT) 0.4 mg SL tablet 25 tablet 1 Sig: Dissolve 1 tablet under the tongue every 5 minutes as needed. Jamshid Brown APRN.CNP * Telephone Encounter - Carol Ann Kumari LPN - 06/08/2024 1:16 PM EDT Prescription Refill Information The patient has been identified by name and date of : Yes Caregiver verified no other encounters exist for this prescription request: Yes Caregiver confirmed with patient/requestor that no other refills are due, in the near future, with this provider at this time: Yes The last office visit in the department: 12/23/23 Does the patient have a future office visit with this provider/department: Yes Requested Prescriptions Pending Prescriptions Disp Refills nitroglycerin sublingual (NITROSTAT) 0.4 mg SL tablet 25 tablet 1 Sig: Dissolve 1 tablet under the tongue every 5 minutes as needed. Carol Ann Kumari LPN June 08, 2024 1:16 PM documented in this encounterPromedica [facility] Hospital04-09-2025 Telephone encounter Note * Telephone Encounter - Carol Ann Kumari LPN - 06/08/2024 1:16 PM EDT Prescription Refill Information The patient has been identified by name and date of : Yes Caregiver verified no other encounters exist for this prescription request: Yes Caregiver confirmed with patient/requestor that no other refills are due, in the near future, with this provider at this time: Yes The last office visit in the department: 12/23/23 Does the patient have a future office visit with this provider/department: Yes Requested Prescriptions Pending Prescriptions Disp Refills nitroglycerin sublingual (NITROSTAT) 0.4 mg SL tablet 25 tablet 1 Sig: Dissolve 1 tablet under the tongue every 5 minutes as needed. Carol Ann Kumari LPN June 08, 2024 1:16 PM [facility]04-08-2025 Telephone encounter Note* Telephone Encounter - Mei Cummins MD - 06/07/2024 4:43 PM EDT Noted Mei Cummins MD [facility]04-08-2025 Miscellaneous Notes* Telephone Encounter - Mei Cummins MD - 06/07/2024 4:43 PM EDT Noted Mei Cummins MD * Telephone Encounter - Yina Magana RN - 06/07/2024 3:12 PM EDT Jeremiah [facility] called in and reports they resumed care on Pt and they will be seeing Pt once a weekfor 3 weeks, which will take the Pt up to when he will need recertification. He reports the Santyl was discontinued and the Pt sees the [facility] every Thursday. They are now using Tray on Pts wound. He states the only medication change is the Pts medication list at discharge said he was suppose to be taking Metoprolol 50 mg BID and the Pt is only taking 25 mg BID. He states the Pt said he talked to Dr Manzano about this as the 50 mg was making him too dizzy, and Jeremiah states the Pts BP runs low. Our medication list shows Metoprolol 25 mg take 1/2 tablet BID, but this is ordered by Dr Manzano.. Yina Magana RN documented in this encounterPromedica Memorial Hospital04-08-2025 Telephone encounter Note * Telephone Encounter - Yina Magana RN - 06/07/2024 3:12 PM EDT Jeremiah [facility] called in and reports they resumed care on Pt and they will be seeing Pt once a weekfor 3 weeks, which will take the Pt up to when he will need recertification. He reports the Santyl was discontinued and the Pt sees the Wound Center every Thursday. They are now using Tray on Pts wound. He states the only medication change is the Pts medication list at discharge said he was suppose to be taking Metoprolol 50 mg BID and the Pt is only taking 25 mg BID. He states the Pt said he talked to Dr Manzano about this as the 50 mg was making him too dizzy, and Jeremiah states the Pts BP runs low. Our medication list shows Metoprolol 25 mg take 1/2 tablet BID, but this is ordered by Dr Manzano.. Yina Magana, RN [facility]04-06-2025 Discharge summary Author Jacob Suazo [facility] Note Date/Time June 05, 2024 11:4 7am [facility] Medical Records Department [address] [place] [address] Discharge Summary 06/05/24 1143 MR#: [id number] Acct: [id number] Name: OSWALDO CORLEY Rep #:[id number] : 1940 83 From: Jacob Meyer nannette ARREOLA PCP: Dr. Mei Cummins MD Status:AD M IN Location: [facility] [id number] Providers Date of Admission: 06/03/24 Date of Discharge: 06/05/24 Primary Care Physician: Dr. Mei Cummins MD Consultations 06/03/24 18:24 Consult: Gastroenterology Routine Consulting Provider: [facility] Reason for Consult: lower GI bleed EMERGENT Consult: No MD Notified: Yes Date Notified: 06/03/24 Time Notified: 17:37 Method of Notification: Text 06/04/24 01:29 Consult: Onc/Wound/grain thresher Routine Comment: Reason for Consult:: left mid ankle wound Reason For Visit: LOWER GI BLEED Diagnosis Discharge Diagnosis (1) Acute lower gastrointestinal bleeding: Status: Acute Code(s): K92.2 - Gastrointestinal hemorrhage, unspecified (2) ABLA (acute blood loss anemia): Status: Acute Code(s): D62 - Acute posthemorrhagic anemia Medications at Discharge Home Medications nitroglycerin 0.4 mg sublingual tablet 0.4 mg sublingual Q5M PRN Chest Pain 12/29/14 fluticasone propionate 230 mcg-salmeterol 21 mcg/actuation HFA inhaler (Advair HFA) 2 puff inhalation BID breathing 08/07/22 atorvastatin 40 mg tablet 40 mg PO QHS cholesterol 03/25/23 duloxetine 30 mg capsule,delayed release 30 mg PO QPM DEPRESSION 03/25/23 tamsulosin 0.4 mg capsule 0.4 mg PO QPM BLADDER/ PROSTATE 03/25/23 tiotropium bromide 2.5 mcg/actuation mist for inhalation (Spiriva Respimat) 2 puff inhalation DAILY copd 03/25/23 ezetimibe 10 mg tablet 10 mg PO DAILY cholesterol 09/28/23 albuterol sulfate 90 mcg/actuation aerosol inhaler 2 puff inhalation Q4H PRN wheezing 02/19/24 aspirin 81 mg tablet,delayed release (Enteric Coated Aspirin) 81 mg PO DAILY heart 02/19/24 oxycodone 5 mg tablet 5 mg PO Q4H PRN chronic pain 02/21/24 ondansetron 4 mg disintegrating tablet 4 mg PO DAILY PRN nausea and vomiting 03/30/24 roflumilast 500 mcg tablet 500 mcg PO DAILY 03/30/24 collagenase clostridium histo. 250 unit/gram topical ointment (Santyl) 1 applic topical DAILY 05/22/24 guaifenesin 600 mg tablet, extended release 12 hr (Mucinex) 1,200 mg PO BID PRN cough 05/22/24 metoprolol tartrate 50 mg tablet 50 mg PO BID #60 tabs 05/24/24 furosemide 20 mg tablet (Lasix) 20 mg PO DAILY PRN weight gain 30 days #0 tabs 06/05/24 lorazepam 1 mg tablet 1 mg PO TID PRN anxiety 30 days #0 tabs 06/05/24 Hospital Course Operations None Procedures EGD and - (Chest x-ray) Summary of Care Provided Minutes Spent on Discharge: 35 Hospital Course: Patient is an 83-year-old male who presented to [facility] ED on06/03/24 with bright red blood per rectum. Hospital course as noted below. Patient discharged home in stable condition on 06/05. 1. Acute lower GI bleed with acute blood loss anemia in setting of chronic normocytic anemia ? GI followed. Presented with 4 episodes of sarika bright red blood per rectum. Hemoglobin 10.2 on admit (baseline), dropped to 8.4 only 4 hours after that so patient was given 2 units of blood. Also given IV fluids at that time. Most recent hemoglobin 9.2 on 06/04. 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 EGD on 06/04 showed 1 angiodysplastic lesion with bleeding in the jejunum that was treated with heater probe; multiple angiodysplastic lesionsfound in the duodenum without bleeding. Hemoglobin 8.2 on morning of 06/05. Willde-escalate to p.o. PPI twice daily. Per GI, will need capsule endoscopy for further evaluation but no need for lower scope at this time. Will resume home aspirin but hold Eliquis on discharge; patient can follow-up with his PCP and/orvascular surgery going forward to determine if Eliquis will be needed. 2. Leukocytosis ? WBC count elevated to 20 on admit. Suspected secondary to acute stress state in setting of GI bleed. Improved during hospitalization. No need for antibiotics on discharge. 3. History of chronic aortic mural thrombus, history of VTE, history of PAD with stenting ?Home Eliquis and baby aspirin were held on admission. [facility] in the past and this was few years ago. Has severe peripheral vascular disease with prior stenting and follows with vascular surgery, but this has now been stable for some time. Will restart home aspirin on discharge but discontinue Eliquis as noted above. 4. COPD with chronic respiratory failure ? Stable on home 4 L nasal cannula at rest, not in acute exacerbation. Notably was hospitalized in late April for acute exacerbation and improved back to his baseline with treatment for COPD exacerbation. Continue home inhalers. Chronic medical conditions: ? History of CAD with CABG and stenting, hypertension, hyperlipidemia: Normotensive on admit. Continue home statin, Zetia, Lasix, Lopressor. Aspirin restarted on discharge. ? BPH with obstructive symptoms: Continue home Flomax. ? Anxiety/depression: Continue home duloxetine and Ativan as needed. ? Chronic pain: Continue home oxycodone as needed. ? History of left-sided lung cancer s/p surgical resection Total clinical time spent by myself addressing the patient's medical issues, reviewing all the data, and collaborating with patient's care team: 35 minutes. Physical Exam Const alert, oriented x3, no apparent distress and average body habitus Constitutional Narrative: Pleasant elderly male, laying back comfortably in bed, conversing normally, in no acute distress. Stable. General Appearance: cooperative and comfortable HEENT normocephalic, head/scalp atraumatic, hearing grossly normal bilaterally, nasal mucous membranes and turbinates normal and moist oral mucous membranes Eyes PERRL, EOMs intact bilaterally and conjunctivae normal Neck full ROM Chest inspection of chest normal Resp normal respiratory effort and no use of accessory muscles Resp Narrative: Breathing comfortably on home 4 L nasal cannula at rest. No wheezing or crackles noted. Cardio regular rate, regular rhythm, no murmurs and peripheral pulses 2+ throughout GI normal to inspection, nondistended, normoactive bowel sounds, soft to palpation,non-tender and non-distended Back/Spine normal ROM Extremity normal to inspection, full ROM and no pedal edema Skin no rashes or lesions noted Neuro moves all extremities and no focal motor deficits Speech: speech normal Psych mental status grossly normal Weight / BMI Weight Weight: 75 kg Body Mass Index (BMI) 23.1 ABG / Lab / Microbiology Data 06/05/24 05:39 06/05/24 05:39 Laboratory: Laboratory Results - last 24 hr 06/05/24 05:39: WBC 12.7 H, RBC 2.97 L, Hgb 8.2 L, Hct 26.4 L, MCV 88.9, MCH 27.6, MCHC 31.1 L, RDW Std Deviation 54.4 H, RDW Coeff of Estelita 16.9 H, Plt Count 170, MPV 9.0, Sodium 139, Potassium 3.9, Chloride 110 H, Carbon Dioxide 21.6, Anion Gap 8, BUN 21 H, Creatinine 0.65 L, Estim Creat Clear Calc 76.82, Est GFR (MDRD) Non-Af 95, BUN/Creatinine Ratio 31.9 H, Glucose 93, Calcium 7.7 D/C Instructions Discharge Diet: No restrictions DC O2, CPAP, BIPAP Needs Home O2 Discharge instructions: No Meaningful Use Info Meaningful Use Meaningful Use Diagnoses (Choose all that apply): None applicable Ischemic Stroke Statin Dosing Therapy Reference: STATIN DOSE THERAPY REFERENCE: * Patients > 75 years receive moderate or high dose statin therapy. * Patients 75 years or YOUNGER should receive HIGH intensity statin dose unless contraindicated. You will be required to document reason for non-treatment if statin daily dose does not meet guidelines. HIGH DOSE STATIN THERAPY DAILY Atorvastatin > than or = to 40 mg Rosuvastatin > than or = to 20 mg Amlodipine + Atorvastatin > than or = to 2.5/40 mg Ezetimibe + Simvastatin 10/80 mg Simvastatin 80mg Discharge Plan Admission Admit Date/Time: 06/03/24 17:32 Primary Reason for Your Visit: GI bleed Attending Provider: Jacob Suazo Primary Care Provider: Mei Cummins Consulting Providers: Elizabeth Santamaria Instructions Additional Instructions / Restrictions: Can restart home baby aspirin but stop taking Eliquis at this time given this isyour second GI bleed in the past several months. Discharge Orders/Prescriptions Prescriptions: Continued fluticasone propion-salmeterol [Advair HFA] 230-21 mcg/actuation HFA aerosol inhaler 2 puff inhalation BID nitroglycerin 0.4 MG tablet 0.4 mg SL Q5M PRN (Reason: Chest Pain) atorvastatin 40 mg tablet 40 mg PO QHS duloxetine 30 mg capsule,delayed release(DR/EC) 30 mg PO QPM tamsulosin 0.4 mg capsule 0.4 mg PO QPM Spiriva Respimat 2.5 mcg/actuation mist 2 puff INHALATION DAILY Rx Instructions: USES AROUND NOON ezetimibe 10 mg tablet 10 mg PO DAILY Patient Comments: PT TAKES AT NIGHT albuterol sulfate 90 mcg/actuation HFA aerosol inhaler 2 puff inhalation Q4H PRN (Reason: wheezing) aspirin [Enteric Coated Aspirin] 81 mg tablet,delayed release (DR/EC) 81 mg PO DAILY Patient Comments: PT TAKES AT BEDTIME oxycodone 5 mg tablet 5 mg PO Q4H PRN ondansetron 4 mg tablet,disintegrating 4 mg PO DAILY PRN (Reason: nausea and vomiting) roflumilast 500 mcg tablet 500 mcg PO DAILY Patient Comments: PT TAKES AND DOESN'T TAKE. HE TAKES A 1/2 TABLET, A WHOLE TABLET BOTHERS HIM. Santyl 250 unit/gram ointment 1 applic topical DAILY Patient Comments: USING DIFFERENT TREATMENT guaifenesin [Mucinex] 600 mg tablet extended release 12hr 1,200 mg PO BID PRN (Reason: cough) metoprolol tartrate 50 mg Tablet 50 mg PO BID Qty: 60 1RF Patient Comments: SPLITTING IN HALF RIGHT NOW BECAUSE IT MAKES HIM DIZZY. Changed furosemide [Lasix] 20 mg tablet 20 mg PO DAILY PRN (Reason: weight gain) 30 Days Qty: 0 0RF Patient Comments: PT ONLY TAKES NEEDED; HASNT TAKEN IN 10 DAYS lorazepam 1 mg tablet 1 mg PO TID PRN (Reason: anxiety) 30 Days Qty: 0 0RF Patient Comments: PT TAKES NEEDED Discontinued Eliquis 5 mg tablet 5 mg PO BID prednisone 10 mg tablet 10 mg PO DAILY Qty: 36 0RF Patient Comments: STARTED ON 05/24/24, HAS TWO LEFT. Rx Instructions: 4 tablets x 4 days, 3 tablets x 4 days, 2 tablets x 4 days then restart 10 mg daily from home dosing amoxicillin-pot clavulanate 875-125 mg tablet 1 tab PO BID Qty: 10 0RF Patient Comments: PT LAST TOOK 05/31 Referrals / Follow Up: Mei Cummins MD [Primary Care Provider] - Friend,DO Garcia [Med Staff - Active Staff] - Disposition Disposition (needs filled in before D/C Order can be placed): Home, Self Care Charges/Coding Visit Charges Inpatient E&M: 74045 Disch Hosp >30min 06/05/24 1147 <Electronically signed by Jacob Suazo DO> Cosigner Signature (if applicable): CC: Dr. Jacob Suazo DO; Dr. Mei Cummins MD~ Signed [facility] Work Phone: 1(389) 728-894304-06-2025 Discharge summary Author Jacob Suazo [facility] Note Date/Time June 05, 2024 11:4 3am [facility] Medical Records Department [address] [place] [address] Instructions for Home/Discharge Instructions 06/05/24 1132 MR#: [id number] Acct: [id number] Name: OSWALDO CORLYE Rep #:[id number] : 1940 83 From: Jacob womack DO PCP: Dr. Mei Cummins MD Status:AD M IN Discharge Instructions Diet Discharge Diet: No restrictions DC O2, CPAP, BIPAP needs Home O2 Discharge instructions: No Dressing / Incision Discharge Activity: No Restrictions Follow Up Care Test Results: Test results from this visit will be discussed in further detail at your follow- up appointment, if applicable. Discharge Plan Admission Admit Date/Time: 06/03/24 17:32 Primary Reason for Your Visit: GI bleed Attending Provider: Jacob Suazo Primary Care Provider: Mei Cummins Consulting Providers: Elizabeth Santamaria Instructions Additional Instructions / Restrictions: Can restart home baby aspirin but stop taking Eliquis at this time given this isyour second GI bleed in the past several months. Discharge Orders/Prescriptions Prescriptions: Continued fluticasone propion-salmeterol [Advair HFA] 230-21 mcg/actuation HFA aerosol inhaler 2 puff inhalation BID nitroglycerin 0.4 MG tablet 0.4 mg SL Q5M PRN (Reason: Chest Pain) atorvastatin 40 mg tablet 40 mg PO QHS duloxetine 30 mg capsule,delayed release(DR/EC) 30 mg PO QPM tamsulosin 0.4 mg capsule 0.4 mg PO QPM Spiriva Respimat 2.5 mcg/actuation mist 2 puff INHALATION DAILY Rx Instructions: USES AROUND NOON ezetimibe 10 mg tablet 10 mg PO DAILY Patient Comments: PT TAKES AT NIGHT albuterol sulfate 90 mcg/actuation HFA aerosol inhaler 2 puff inhalation Q4H PRN (Reason: wheezing) aspirin [Enteric Coated Aspirin] 81 mg tablet,delayed release (DR/EC) 81 mg PO DAILY Patient Comments: PT TAKES AT BEDTIME oxycodone 5 mg tablet 5 mg PO Q4H PRN ondansetron 4 mg tablet,disintegrating 4 mg PO DAILY PRN (Reason: nausea and vomiting) roflumilast 500 mcg tablet 500 mcg PO DAILY Patient Comments: PT TAKES AND DOESN'T TAKE. HE TAKES A 1/2 TABLET, A WHOLE TABLET BOTHERS HIM. Santyl 250 unit/gram ointment 1 applic topical DAILY Patient Comments: USING DIFFERENT TREATMENT guaifenesin [Mucinex] 600 mg tablet extended release 12hr 1,200 mg PO BID PRN (Reason: cough) metoprolol tartrate 50 mg Tablet 50 mg PO BID Qty: 60 1RF Patient Comments: SPLITTING IN HALF RIGHT NOW BECAUSE IT MAKES HIM DIZZY. Changed furosemide [Lasix] 20 mg tablet 20 mg PO DAILY PRN (Reason: weight gain) 30 Days Qty: 0 0RF Patient Comments: PT ONLY TAKES NEEDED; HASNT TAKEN IN 10 DAYS lorazepam 1 mg tablet 1 mg PO TID PRN (Reason: anxiety) 30 Days Qty: 0 0RF Patient Comments: PT TAKES NEEDED Discontinued Eliquis 5 mg tablet 5 mg PO BID prednisone 10 mg tablet 10 mg PO DAILY Qty: 36 0RF Patient Comments: STARTED ON 05/24/24, HAS TWO LEFT. Rx Instructions: 4 tablets x 4 days, 3 tablets x 4 days, 2 tablets x 4 days then restart 10 mg daily from home dosing amoxicillin-pot clavulanate 875-125 mg tablet 1 tab PO BID Qty: 10 0RF Patient Comments: PT LAST TOOK 05/31 Referrals / Follow Up: Mei Cummins MD [Primary Care Provider] - Friend,DO Garcia [Med Staff - Active Staff] - Disposition Disposition (needs filled in before D/C Order can be placed): Home, Self Care 06/05/24 1143<Electronically signed by Jacob Suazo DO>Jacob Suazo DO CC: Dr. Mei Cummins MD; Dr. Elizabeth Santamaria MD ~ Signed [facility] Work Phone: 1([phone]) 380-473404-06-2025 [facility]04-06-2025 Progress note Author [facility] Note Date/Time June 05, 2024 9:32 am [facility] Medical Records Department [address] [place] [address] Progress Note - Hospitalist 06/05/24 0927 MR#: [id number] Acct: [id number] Name: OSWALDO CORLEY Rep #:[id number] : 1940 83 From: Jacob womack DO PCP: Dr. Mei Cummins MD Status:AD M IN Location: [address] Reason for Visit Reason for Visit: Diagnoses Acute posthemorrhagic anemia (06/03/24) Gastrointestinal hemorrhage, unspecified (06/03/24) Subjective Subjective Saw patient at bedside this morning. Patient was mildly fatigued but otherwise laying back comfortably in bed, conversing normally and in no acute distress. Tolerated EGD without issue yesterday. Has not had any further bloody bowel movements since admission. Notes that he feels well today and is hoping to go home soon. No other new concerns today. Objective Data Objective Data Vital Signs: Vital Signs Temp Pulse Resp BP Pulse Ox O2 Del Method O2 Flow Rate 97.8 F 76 19 H 120/64 95 Nasal Cannula 3 06/05/24 08:20 06/05/24 08:20 06/05/24 08:20 06/05/24 08:20 06/05/24 08:20 06/05/24 08:21 06/05/24 08:21 Oxygen Flow Rate (L/min) 3 Oxygen Delivery Method Nasal Cannula Weight: 75 kg Body Mass Index (BMI) 23.1 Intake & Output: Intake and Output for Last 24 Hours 06/03/24 06/04/24 06/05/24 23:59 23:59 23:59 Intake Total 2211.17 / 2211.17 2920.58 / 3120.58 200 / 200 Output Total 700 / 1000 600 / 600 Balance 2211.17 / 2211.17 2220.58 / 2120.58 -400 / -400 Lab / Micro Data 06/05/24 05:39 06/05/24 05:39 Labs: Laboratory Results - last 24 hr 06/05/24 05:39: WBC 12.7 H, RBC 2.97 L, Hgb 8.2 L, Hct 26.4 L, MCV 88.9, MCH 27.6, MCHC 31.1 L, RDW Std Deviation 54.4 H, RDW Coeff of Estelita 16.9 H, Plt Count 170, MPV 9.0, Sodium 139, Potassium 3.9, Chloride 110 H, Carbon Dioxide 21.6, Anion Gap 8, BUN 21 H, Creatinine 0.65 L, Estim Creat Clear Calc 76.82, Est GFR (MDRD) Non-Af 95, BUN/Creatinine Ratio 31.9 H, Glucose 93, Calcium 7.7 Rhythm Strip Rhythm Strip: Sinus Rhythm Rate: 95 Ectopy: None Physical Exam Const alert, oriented x3, no apparent distress and average body habitus Constitutional Narrative: Pleasant elderly male, laying back comfortably in bed, conversing normally, in no acute distress. Stable. General Appearance: cooperative and comfortable HEENT normocephalic, head/scalp atraumatic, hearing grossly normal bilaterally, nasal mucous membranes and turbinates normal and moist oral mucous membranes Eyes PERRL, EOMs intact bilaterally and conjunctivae normal Neck full ROM Chest inspection of chest normal Resp normal respiratory effort and no use of accessory muscles Resp Narrative: Breathing comfortably on home 4 L nasal cannula at rest. No wheezing or crackles noted. Cardio regular rate, regular rhythm, no murmurs and peripheral pulses 2+ throughout GI normal to inspection, nondistended, normoactive bowel sounds, soft to palpation,non-tender and non-distended Back/Spine normal ROM Extremity normal to inspection, full ROM and no pedal edema Skin no rashes or lesions noted Neuro moves all extremities and no focal motor deficits Speech: speech normal Psych mental status grossly normal Assessment & Plan Assessment/Plan (1) Acute lower gastrointestinal bleeding: (2) ABLA (acute blood loss anemia): PLAN: Plan Patient is an 83-year-old male who presented to [facility] ED on06/24 with bright red blood per rectum. 1. Acute lower GI bleed with acute blood loss anemia in setting of chronic normocytic anemia ? GI following. Presented with 4 episodes of sarika bright red blood per rectum. Hemoglobin 10.2 on admit (baseline), dropped to 8.4 only 4 hours after that so patient was given 2 units of blood. Also given IV fluids at that time. Most recent hemoglobin 9.2 on 06/04. 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 EGD on 06/04 showed 1 angiodysplastic lesion with bleeding in the jejunum that was treated with heater probe; multiple angiodysplastic lesionsfound in the duodenum without bleeding. Hemoglobin 8.2 on morning of 06/05. Willde-escalate to p.o. PPI twice daily. Per GI, will need capsule endoscopy for further evaluation but no need for lower scope at this time. Will need to determine whether to restart patient's home aspirin and/or Eliquis on discharge. Continue to monitor CBC daily. Hopeful for discharge home in the next 1 to 2 days. 2. Leukocytosis ? WBC count elevated to 20 on admit. Suspected secondary to acute stress state in setting of GI bleed. Improving, most recent WBC count 12 on 06/04. Continue to monitor CBC daily. Hold on antibiotics at this time. 3. History of chronic aortic mural thrombus, history of VTE ? Holding home Eliquis as above. Patient only remembers 1 episode of PE in the past. Follows with a Dr. Rajan for this. Will need to discuss whether to stop blood thinners on discharge with GI as noted above. 4. COPD with chronic respiratory failure ? Stable on home 4 L nasal cannula at rest, not in acute exacerbation. Notably was hospitalized in late April for acute exacerbation and improved back to his baseline with treatment for COPD exacerbation. Continue home inhalers. Chronic medical conditions: ? History of CAD with CABG and stenting, hypertension, hyperlipidemia: Normotensive on admit. Continue home statin, Zetia, Lasix, Lopressor. Holding aspirin. ? BPH with obstructive symptoms: Continue home Flomax. ? Anxiety/depression: Continue home duloxetine and Ativan as needed. ? Chronic pain: Continue home oxycodone as needed. ? History of left-sided lung cancer s/p surgical resection DVT prophylaxis: SCDs CODE STATUS: DNR CCA, DNI Expected disposition: Home, 1 to 2 days Total clinical time spent by myself addressing the patient's medical issues, reviewing all the data, and collaborating with patient's care team: 35 minutes. Charges/Coding Visit Charges Inpatient E&M: 39404 Subs Hosp L2 06/05/24 0932 <Electronically signed by Jacob Suazo DO> Cosigner Signature (if applicable): CC: ~ Signed [facility] Work Phone: 1(355) 328-932804-05-2025 Consult note Author Durag Blas [facility] Note Date/Time June 04, 2024 2:14 pm [facility] Medical Records Department [address] [place] [address] Anesthesia Postop Eval I 06/04/24 1413 MR#: [id number] Acct: [id number] Name: BARNEYOSWALDO Bruno Rep #:[id number] : 1940 83 From: Durga Blas PCP: Dr. Mei Cummins MD Status:AD M IN Y Race: C Location: [place] [address] -1 Anesthesia: Postop Eval I Current Vital Signs Temperature: 97.5 F Pulse Rate: 74 Blood Pressure: 131/65 Respiratory Rate: 19 Pulse Ox: 100 Assessment Airway patent: Yes Spontaneous unlabored respirations: Yes nausea: No Vomiting: No Anesthesia Complication: No Fluid Hydration Crystalloid volume administer (ml): 200 Total IV fluid infused: 200 Progress Note Anesthesia document: Postop Eval 1 completed: Yes 06/04/241413 <Electronically signed by Durga Morales at> Date _ Durga Blas Cosigner Signature: Date CC: ~ Signed [facility] Work Phone: 1(286) 666-521904-05-2025 Consult note Author Durga Blas [facility] Note Date/Time June 05, 2024 2:42 pm [facility] Medical Records Department [address] [place], [place] [address] [address] Anesthesia Postop Eval II 06/04/24 1414 MR#: [id number] Acct: [id number] Name: BARNEYOSWALDO BRIGGS Bruno Rep #:[id number] : 1940 83 From: Durga Blas PCP: Dr. Mei Cummins MD Status:AD M IN Y Race: C Location: [place] [address] Anesthesia Postop Eval I Sum Postop Eval Completion status Anesthesia document: Postop Eval 1 completed: Yes Anesthesia Postop Eval I Summary Anesthesia Postop Eval I Summary: Anesthesia Postop Eval I: Assessment Summary Airway patent Yes 06/04/24 14:13 [employer] Spontaneous unlabored Yes 06/04/24 14:13 [employer]JCOTE respirations Mental status nausea No 06/04/24 14:13 [employer] Vomiting No 06/04/24 14:13 [employer]JCOTE Anesthesia Postop Eval I: Fluid Summary Crystalloid volume administer 200 06/04/24 14:13 [employer]JCOTE (ml) Colloids volume administered ( ml) Blood Product volume administered (ml) Total IV fluid infused 200 06/04/24 14:13 [employer]JCOTE Anesthesia Postop Eval I: Summary Notes Anesthesia Complication No 06/04/24 14:13 [employer]JCOTE Anesthesia Complication Comment: Post-operative progress note Anesthesia: Postop Eval II Evaluation Mental status: Awake Pain Level: 0 nausea: No Vomiting: No 06/04/24 1414 <Electronically signed by Durga Morales at> Date _ Durga Blas Cosigner Signature: Date CC: ~ Signed [facility] Work Phone: [phone]) 423-366704-05-2025 Progress note Author Jacob Suazo [facility] Note Date/Time June 04, 2024 1:43 pm [facility] Medical Records Department [address] [place] [address] Progress Note - Hospitalist 06/04/24 1124 MR#: [id number] Acct: [id number] Name: OSWALDO CORLEY Bruno Rep #:[id number] : 1940 83 From: Jacob womack DO PCP: Dr. Mei Cummins MD Status:AD M IN Location: [place] [address]-1 Reason for Visit Reason for Visit: Diagnoses Gastrointestinal hemorrhage, unspecified (06/03/24) Subjective Subjective Saw patient at bedside this morning, present. Patient was sitting back comfortably in bedside chair, conversing normally, in no acute distress. Noted that he has not had any bowel movement since late last night. He generally feels well this morning, denies any significant fatigue. No other new concerns today. Objective Data Objective Data Vital Signs: Vital Signs Temp Pulse Resp BP Pulse Ox O2 Del Method O2 Flow Rate 97.5 F L 67 19 H 112/67 98 Nasal Cannula 4 06/04/24 10:04 06/04/24 11:04 06/04/24 10:04 06/04/24 10:04 06/04/24 11:05 06/04/24 11:05 06/04/24 11:05 Oxygen Flow Rate (L/min) 4 Oxygen Delivery Method Nasal Cannula Weight: 75 kg Body Mass Index (BMI) 23.1 Intake & Output: Intake and Output for Last 24 Hours 06/02/24 06/03/24 06/04/24 23:59 23:59 23:59 Intake Total 2211.17 / 2211.17 1810.58 / 1810.58 Output Total 400 / 400 Balance 2211.17 / 2211.17 1410.58 / 1410.58 Lab / Micro Data 06/04/24 03:02 06/04/24 03:02 Labs: Laboratory Results - last 24 hr 06/03/24 16:00: WBC 20.3 H, RBC 3.81 L, Hgb 10.2 L, Hct 34.1 L, MCV 89.5, MCH 26.8 L, MCHC 29.9 L, RDW Std Deviation 52.9 H, RDW Coeff of Estelita 16.1 H, Plt Count 364, MPV 9.6, Immature Gran % (Auto) 1.500 H, Neut % (Auto) 91.5 H, Lymph % (Auto) 3.2 L, Posey % (Auto) 3.7, Eos % (Auto) 0.0, Baso % (Auto) 0.1, AbsoluteNeuts (auto) 18.5 H, Absolute Lymphs (auto) 0.65 L, Nucleated RBC % 0, Sodium 139, Potassium 5.2 H, Chloride 102, Carbon Dioxide 25.7, Anion Gap 11, BUN 34 H,Creatinine 1.10, Estim Creat Clear Calc 55.95, Est GFR (MDRD) Non-Af 67, BUN/Creatinine Ratio 30.8 H, Glucose 144 H, Calcium 9.0, Blood Type O NEGATIVE, Antibody Screen NEGATIVE, Crossmatch See Detail 06/03/24 19:40: WBC 17.3 H, RBC 3.08 L, Hgb 8.4 L, Hct 28.1 L, MCV 91.2, MCH 27.3, MCHC 29.9 L, RDW Std Deviation 53.1 H, RDW Coeff of Estelita 16.2 H, Plt Count 277, MPV 9.3, Immature Gran % (Auto) 1.600 H, Neut % (Auto) 88.7 H, Lymph % (Auto) 4.2 L, Posey % (Auto) 5.4, Eos % (Auto) 0.0, Baso % (Auto) 0.1, Absolute Neuts (auto) 15.4 H, Absolute Lymphs (auto) 0.73 L, Nucleated RBC % 0.1 06/04/24 03:02: WBC 13.5 H, RBC 3.34 L, Hgb 9.2 L, Hct 29.3 L, MCV 87.7, MCH 27.5, MCHC 31.4 L D, RDW Std Deviation 52.3 H, RDW Coeff of Estelita 16.4 H, Plt Count 186, MPV 8.8, Immature Gran % (Auto) 1.100 H, Neut % (Auto) 87.2 H, Lymph % (Auto) 4.9 L, Posey % (Auto) 6.6, Eos % (Auto) 0.1, Baso % (Auto) 0.1, AbsoluteNeuts (auto) 11.8 H, Absolute Lymphs (auto) 0.66 L, Nucleated RBC % 0.1, Sodium 139, Potassium 4.7, Chloride 108, Carbon Dioxide 23.5, Anion Gap 8, BUN 39 H, Creatinine 1.03, Estim Creat Clear Calc 59.67, Est GFR (MDRD) Non-Af 73, BUN/Creatinine Ratio 38.3 H, Glucose 124 H, Calcium 7.7 Radiography Diagnostic Testing: Radiology Impression Chest X-Ray 06/03/24 16:00 IMPRESSION: Stable multifocal airspace opacities, more prominent in the left hemithorax. Emphysema. Reading Location: [facility] Rhythm Strip Rhythm Strip: Sinus Rhythm Rate: 95 Ectopy: None Physical Exam Const alert, oriented x3, no apparent distress and average body habitus Constitutional Narrative: Pleasant elderly male, sitting back comfortably in bedside chair, conversing normally, in no acute distress. General Appearance: cooperative and comfortable HEENT normocephalic, head/scalp atraumatic, hearing grossly normal bilaterally, nasal mucous membranes and turbinates normal and moist oral mucous membranes Eyes PERRL, EOMs intact bilaterally and conjunctivae normal Neck full ROM Chest inspection of chest normal Resp normal respiratory effort and no use of accessory muscles Resp Narrative: Breathing comfortably on home 4 L nasal cannula at rest. No wheezing or crackles noted. Cardio regular rate, regular rhythm, no murmurs and peripheral pulses 2+ throughout GI normal to inspection, nondistended, normoactive bowel sounds, soft to palpation,non-tender and non-distended Back/Spine normal ROM Extremity normal to inspection, full ROM and no pedal edema Skin no rashes or lesions noted Neuro moves all extremities and no focal motor deficits Speech: speech normal Motor Exam: strength 5/5 throughout Psych mental status grossly normal Assessment & Plan Assessment/Plan (1) Acute lower gastrointestinal bleeding: (2) ABLA (acute blood loss anemia): PLAN: Plan Patient is an 83-year-old male who presented to [facility] ED on06/24 with bright red blood per rectum. 1. Acute lower GI bleed with acute blood loss anemia in setting of chronic normocytic anemia ? GI following. Presented with 4 episodes of sarika bright red blood per rectum. Hemoglobin 10.2 on admit (baseline), dropped to 8.4 only 4 hours after that so patient was given 2 units of blood. Also given IV fluids at that time. Most recent hemoglobin 9.2 on 06/04. 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 Planning for EGD today and if negative, may need colonoscopy tomorrow. Continue IV PPI twice daily for now. Holding home Eliquis and aspirin. Monitor CBC daily. 2. Leukocytosis ? WBC count elevated to 20 on admit. Suspected secondary to acute stress state in setting of GI bleed. Improving, most recent WBC count 13 on 06/04. Continue to monitor CBC daily. Hold on antibiotics at this time. 3. History of chronic aortic mural thrombus, history of VTE ? Holding home Eliquis as above. Patient only remembers 1 episode of PE in the past. Follows with a Dr. Rajan for this. Will need to discuss whether to stop blood thinners on discharge depending on findings of scopes. 4. COPD with chronic respiratory failure ? Stable on home 4 L nasal cannula at rest, not in acute exacerbation. Notably was hospitalized in late April for acute exacerbation and improved back to his baseline with treatment for COPD exacerbation. Continue home inhalers. Chronic medical conditions: ? History of CAD with CABG and stenting, hypertension, hyperlipidemia: Normotensive on admit. Continue home statin, Zetia, Lasix, Lopressor. Holding aspirin. ? BPH with obstructive symptoms: Continue home Flomax. ? Anxiety/depression: Continue home duloxetine and Ativan as needed. ? Chronic pain: Continue home oxycodone as needed. ? History of left-sided lung cancer s/p surgical resection DVT prophylaxis: SCDs CODE STATUS: DNR CCA, DNI Expected disposition: Home, 2 to 3 days Total clinical time spent by myself addressing the patient's medical issues, reviewing all the data, and collaborating with patient's care team: 35 minutes. Charges/Coding Visit Charges Inpatient E&M: 46313 Subs Hosp L2 06/04/24 1346 <Electronically signed by Jacob Suazo DO> Cosigner Signature (if applicable): CC: ~ Signed [facility] Work Phone: [phone]) 233-455004-05-2025 Consult note Author Garcia Moreno [facility] Note Date/Time June 04, 2024 12:5 6pm [facility] Medical Records Department [address] [place] [id number] Consultation - GI 06/04/24 1254 MR#: [id number] Acct: [id number] Name: OSWALDO CORLEY Rep #:[id number] : 1940 83 From: Garcia Moreno DO PCP: Dr. Mei Cummins MD Status:AD M IN [facility] H[facility] Consult Data Date of Consult: 06/04/24 HPI Narrative Reason for Consultation: GI bleed HPI Narrative: OSWALDO CORLEY, is a 83 M with a pMH as outlined including a history of GI bleedwho presents via the ED on 06/03/2024 with a complaint of rectal bleeding. He had 4 episodes of rectal bleeding since yesterday. He admitted to lightheadedness and dizziness, but denied any chest pain, palpitations, nausea, vomiting or any other symptoms. Review of systems was otherwise negative. [facility] BP of 90/64, [place] of 92, RR of 24 and temp of 98.4F. HE was saturating at 100% on room air. CBC showed Hb of 10.2, wbc of 20.3 and plateletsof 364. CHemistry showed sodium of 139 and potassium of 5.2. Cr is 1.1. Chest x-ray shows stable multifocal airspace opacities more prominent in the left hemithorax. He is being admitted to be managed for acute on chronic anemia due to GI bleed. [facility] Medical History Chronic respiratory failure with hypoxia and hypercapnia COPD exacerbation Angina at rest Pulmonary embolus COVID Fecal occult blood test positive Abnormal chest CT COPD with acute exacerbation Squamous cell carcinoma of left lung Lung mass Depression Myocardial infarct Coronary artery disease Pulmonary neoplasm Wears glasses Wears dentures Cancer Anxiety Abrasion History of steroid therapy Prostate disease High cholesterol Injury of back Syncope History of weight loss Former smoker COPD (chronic obstructive pulmonary disease) On home oxygen therapy Shortness of breath on exertion Chronic cough History of stress test Cardiology follow-up encounter Chest pain No pertinent family history 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 Nocturnal hypoxemia Chronic hypoxemic respiratory failure Bronchiectasis Prostate CA CAD (coronary artery disease) HLD (hyperlipidemia) Benign essential HTN Home Medications ?Medication ?Instructions ?Recorded ?Last Taken ?Type nitroglycerin 0.4 mg sublingual 0.4 mg sublingual Q5M PRN Chest 12/29/14 1 Week Ago History tablet Pain ~07/02/20 fluticasone propionate 230 2 puff inhalation BID breat nicho 08/07/22 06/03/24 History mcg-salmeterol 21 mcg/actuation HFA inhaler (Advair HFA) atorvastatin 40 mg tablet 40 mg PO QHS cholesterol 06/02/24 History duloxetine 30 mg capsule,delayed 30 mg PO QPM DEPRESSI ON 03/25/23 06/02/24 History release tamsulosin 0.4 mg capsule 0.4 mg PO QPM BLADDER/ PROST ATE 03/25/23 06/02/24 History tiotropium bromide 2.5 2 puff inhalation DAILY copd 03/25/23 06/03/24 History mcg/actuation mist for inhalation (Spiriva Respimat) ezetimibe 10 mg tablet 10 mg PO DAILY cholesterol 0 09/28/23 06/02/24 History apixaban 5 mg tablet (Eliquis) 5 mg PO BID blood thinn er 10/05/23 06/03/24 History albuterol sulfate 90 mcg/actuation 2 puff inhalation Q 4H PRN wheezing 02/19/24 Unknown History aerosol inhaler aspirin 81 mg tablet,delayed 81 mg PO DAILY heart 01/3106/02/24 History release (Enteric Coated Aspirin) lorazepam 1 mg tablet 1 mg PO TID anxiety 02/19/24 06/02/24 History oxycodone 5 mg tablet 5 mg PO Q4H PRN chronic pain 02/21/24 06/03/24 History ondansetron 4 mg disintegrating 4 mg PO DAILY PRN naus ea and 03/30/24 05/29/24 History tablet vomiting roflumilast 500 mcg tablet 500 mcg PO DAILY 03/30/24 0 06/03/24 History collagenase clostridium histo. 250 1 applic topical DA SHELIA 05/22/24 05/21/24 History unit/gram topical ointment (Santyl) Held on 06/03/24. Instructions: Conflicting Appointment furosemide 20 mg tablet (Lasix) 20 mg PO DAILY weight gain 05/22/24 05/21/24 History guaifenesin 600 mg tablet, 1,200 mg PO BID PRN cough 0 05/22/24 06/03/24 History extended release 12 hr (Mucinex) amoxicillin 875 mg-potassium 1 tab PO BID #10 tabs Unknown Rx clavulanate 125 mg tablet metoprolol tartrate 50 mg tablet 50 mg PO BID #60 tabs 05/24/24 06/03/24 Rx prednisone 10 mg tablet 10 mg PO DAILY #36 tabs 05/0106/03/24 Rx Allergy/AdvReac Type Severity Reaction Status Date / Time isosorbide (From Imdur) Allergy Other-patient Verified 06/03/24 15:00 blacks out Family History Mother Cancer Father Heart disease COPD (chronic obstructive pulmonary disease) Surgical History Hx of CABG Hx of heart artery stent Hx of transurethral resection of prostate Hx of pneumonectomy Hx of CABG Social History household members: spouse Smoking Status: Former smoker Tobacco: How many years used: 45 Electronic Cigarette Use: not used how long ago did patient quit smokin, second hand exposure: Yes alcohol intake: never substance use type: does not use ROS Constitutional Constitutional: Denies fatigue, fever(s), poor appetite, weight gain or weight loss Gastrointestinal Gastrointestinal: Denies belching, bloating, change in bowel habits, change in stool character, chewing difficulty, coffee ground emesis, constipation, cramping, diarrhea, dyspepsia, dysphagia, early satiety, excessive flatus, fecalincontinence, heartburn, hematemesis, hematochezia, hemorrhoids, loose stools, melena, nausea, odynophagia, rectal bleeding, tenesmus, vomiting or weight changes Physical Exam Const alert, oriented x3, no apparent distress and healthy appearing General Appearance: cooperative GI normal to inspection, nondistended, normoactive bowel sounds, soft to palpation,non-tender and non-distended Percussion: normal to percussion Rectal Exam: deferred Lab / Micro Data 06/04/24 03:02 06/04/24 03:02 Labs: Laboratory Results - last 24 hr 06/03/24 16:00: WBC 20.3 H, RBC 3.81 L, Hgb 10.2 L, Hct 34.1 L, MCV 89.5, MCH 26.8 L, MCHC 29.9 L, RDW Std Deviation 52.9 H, RDW Coeff of Estelita 16.1 H, Plt Count 364, MPV 9.6, Immature Gran % (Auto) 1.500 H, Neut % (Auto) 91.5 H, Lymph % (Auto) 3.2 L, Posey % (Auto) 3.7, Eos % (Auto) 0.0, Baso % (Auto) 0.1, AbsoluteNeuts (auto) 18.5 H, Absolute Lymphs (auto) 0.65 L, Nucleated RBC % 0, Sodium 139, Potassium 5.2 H, Chloride 102, Carbon Dioxide 25.7, Anion Gap 11, BUN 34 H,Creatinine 1.10, Estim Creat Clear Calc 55.95, Est GFR (MDRD) Non-Af 67, BUN/Creatinine Ratio 30.8 H, Glucose 144 H, Calcium 9.0, Blood Type O NEGATIVE, Antibody Screen NEGATIVE, Crossmatch See Detail 06/03/24 19:40: WBC 17.3 H, RBC 3.08 L, Hgb 8.4 L, Hct 28.1 L, MCV 91.2, MCH 27.3, MCHC 29.9 L, RDW Std Deviation 53.1 H, RDW Coeff of Estelita 16.2 H, Plt Count 277, MPV 9.3, Immature Gran % (Auto) 1.600 H, Neut % (Auto) 88.7 H, Lymph % (Auto) 4.2 L, Posey % (Auto) 5.4, Eos % (Auto) 0.0, Baso % (Auto) 0.1, Absolute Neuts (auto) 15.4 H, Absolute Lymphs (auto) 0.73 L, Nucleated RBC % 0.1 06/04/24 03:02: WBC 13.5 H, RBC 3.34 L, Hgb 9.2 L, Hct 29.3 L, MCV 87.7, MCH 27.5, MCHC 31.4 L D, RDW Std Deviation 52.3 H, RDW Coeff of Estelita 16.4 H, Plt Count 186, MPV 8.8, Immature Gran % (Auto) 1.100 H, Neut % (Auto) 87.2 H, Lymph % (Auto) 4.9 L, Posey % (Auto) 6.6, Eos % (Auto) 0.1, Baso % (Auto) 0.1, AbsoluteNeuts (auto) 11.8 H, Absolute Lymphs (auto) 0.66 L, Nucleated RBC % 0.1, Sodium 139, Potassium 4.7, Chloride 108, Carbon Dioxide 23.5, Anion Gap 8, BUN 39 H, Creatinine 1.03, Estim Creat Clear Calc 59.67, Est GFR (MDRD) Non-Af 73, BUN/Creatinine Ratio 38.3 H, Glucose 124 H, Calcium 7.7 Rhythm Strip Rhythm Strip: Sinus Rhythm Rate: 95 Ectopy: None Imaging Radiology Impression Chest X-Ray 06/03/24 16:00 IMPRESSION: Stable multifocal airspace opacities, more prominent in the left hemithorax. Emphysema. Reading [facility] Assessment & Plan Assessment/Plan (1) Acute lower gastrointestinal bleeding: PLAN: Plan #Acute lower GI bleed likely due to bleeding diverticula * He was admitted with a complaint of lower GI bleed and had had about 4 episodes of sarika red blood per rectum * Patient had a similar lower GI bleed in October [address] angiogram of the abdomen and pelvis to rule out any small bowel bleeding. 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 He also had EGD which showed normal esophagus and small hiatal hernia and no gross lesions in the fourth portion of the duodenum and colonoscopy showed diverticulosis in the entire examined colon. * Keep NPO. Hydrate with IV fluids. Type and cross transfuse if hemoglobin drops to less than 7. * Patient will undergo an upper endoscopy and if negative may need a colonoscopy. Charges/Coding Visit Charges Inpatient E&M: 16105 Init Hosp L3 06/04/24 1256 <Electronically signed by Garcia Friend DO> Cosigner Signature (if applicable): CC: Dr. Mei Cummins MD~ Signed [facility] Work Phone: [phone] 429-166704-05-2025 Consult note Author Durga Blas [facility] Note Date/Time June 04, 2024 12:5 4pm [facility] Medical Records Department [address] [place] [id number] Pre-Anesthesia Evaluation 06/04/24 1249 MR#: [id number] Acct: [id number] Name: OSWALDO CORLEY Rep #:[id number] : 1940 83 From: Durga Blas PCP: Dr. Mei Cummins MD Status:AD M IN Y Race: C Location: [place] [address] ASA Classification* ASA Classification ASA Classification: 3 and E Assessment & Plan Anesthesia* Anesthesia Assessment Anesthesia Assessment: Discussed sedation and/or anesthesia options, risks, benefits, and alternatives with patient/parents/legal guardian/POA. Questions invited. The patient/parents/legal guardian/POA seems to understand and agrees to proceedwith anesthesia plan. Reviewed the physical assessment, medical history, allergy history and patient home medications list prior to surgery/procedure/anesthetic and documented any changes. Performed airway and anesthesia risk assessments. Procedural Plan Add'l anesthesia plan details: MAC for egd Anesthesia Type Anesthesia Type: MAC History Source History Obtained from:: Chart Anesthesia Focused Assessment* Temperature: 97.5 F Pulse Rate: 89 Blood Pressure: 112/67 Respiratory Rate: 20 Pulse Ox: 98 Oxygen Flow Rate (L/min): 4 Airway Assessment Mouth opens: >3 cm Mallampati Score: II Focused Labs Anesthesia Preop lab: CBC WBC 13.5 K/mm3 (4.4-11.0) H 06/04/24 03:02 5 RBC 3.34 M/mm3 (4.6-6.2) L 06/04/24 03:02 06/04/24 Hgb 9.2 g/dL (13.0-16.5) L 06/04/24 03:02 06/04/24 Hct 29.3 % (40-54) L 06/04/24 03:02 06/04/24 Plt Count 186 K/mm3 (150-450) 06/04/24 03:02 06/04/24 CHEMISTRY Potassium 4.7 mmol/L (3.3-5.1) 06/04/24 03:02 06/04/24 Sodium 139 mmol/L (133-145) 06/04/24 03:02 06/04/24 Magnesium 2.3 mg/dL (1.6-2.6) 02/19/24 18:57 02/19/24 Phosphorus 6.8 mg/dL (2.5-4.9) H 10/07/23 05:10 10/07/23 BUN 39 mg/dL (4-19) H 06/04/24 03:02 06/04/24 Creatinine 1.03 mg/dL (0.70-1.20) 06/04/24 03:02 06/04/24 Glucose 124 mg/dL (70-99) H 06/04/24 03:02 06/04/24 POC Glucose 115 mg/dL (74-106) H 10/05/23 21:35 10/05/23 COAG PT 13.8 SECONDS (11.7-14.9) 09/29/23 04:00 Pre-Assessment Diagnosis/Proposed Procedure Planned Operative Procedure(s): EGD Anesthesia History Anesthesia History - medical claims manager: Anesthesia History - medical claims manager Hx Hospitalization Yes: 07/2020 breathing issues 08/13/20 08:35 /needle biopsy/pneumonia Any Problems With Anesthesia No 07/30/24 04:40 Cholinesterase deficiency No 09/29/23 04:40 You/Your Family Experience No 09/29/23 04:40 fever (hyperthermia) with Relationship Recent Exposure to Contagious Yes 09/29/23 04:40 Disease Does patient have nerve No 10/07/23 04:41 stimulator Patient instructed to have device shut off --Does patient have Pacemaker or ICD? When Was Last Pacemaker Check QUESTION #4 FULL TEXT: You/Your Family Experience fever (hyperthermia) with Anesthesia Last Oral Intake Last Oral intake: Last Oral Intake NPO since Meds taken in AM with sips of water? Meds patient instructed to take am of surgery PONV PONV - medical claims manager: PONV - medical claims manager Female HX of Motion Sickness HX of N/V After Surgery Non-Smoker Duration of Surgery greater than 60 minutes Number of Risk Factors PONV Score Height & Weight Height & Weight: Anesthesia: Height & Weight Height 5 ft 11 in 06/04/24 10:33 Weight: 75 kg 06/04/24 10:33 Body Mass Index (BMI) 23.1 06/03/24 19:15 Respiratory Assessment Respiratory Assessment - medical claims manager: Respiratory Tract Infection Hx - medical claims manager Hx Respiratory Tract Infection Yes: covid 10 days ago 10/07/23 04:41 STOP Sleep Apnea STOP Sleep Apnea - medical claims manager: STOP Sleep Apnea - medical claims manager Hx Hypertension No 06/04/24 09:42 Hx Sleep Apnea No 06/03/24 19:15 CPAP No 06/03/24 19:15 BIPAP No 06/03/24 19:15 Do you snore loudly (louder No 06/03/24 19:15 than talking or can be heard Do you often feel tired/ Yes 06/03/24 19:15 fatigued/ sleepy during daytime? Has anyone observed you stop No 06/03/24 19:15 breathing during sleep? STOP Results Negative 06/03/24 19:15 QUESTION #5 FULL TEXT : Do you snore loudly (louder than talking or can be heard through closed doors)? Tobacco Use History Tobacco Use History - medical claims manager: Tobacco Use History - medical claims manager Tobacco Use Non-smoker 07/09/20 19:04 Smoking Status Former smoker 06/03/24 19:15 Hx Tobacco Use No 06/03/24 19:15 Years Smoking Packs Smoked per Day Smoking Cessation Date was No - quit smoking greater 06/03/24 19:15 within the last 15 years than 15 years ago Hx Smoking Cessation Date 07/10/99 06/03/24 19:15 Hx Smoking Cessation No 06/03/24 19:15 Counseling Hematologic Medial History Hematologic Hx - medical claims manager: Hematologic Medical Hx - tube repairer Hx of Blood Transfusion Yes 06/03/24 19:15 Hx of Transfusion in last 3 No 06/03/24 19:15 Months Date of Last Transfusion (if within last 3 months) Ever experience any problems No 06/03/24 19:15 with transfusion(s)? Specify any problems Hx of Preganancy in last 3 N/A 06/03/24 19:15 Months Nurse Filling Out Transfusion EVIZZO 06/03/24 19:15 & Questions: Date: 06/03/24 06/03/24 19:15 Time: 19:54 06/03/24 19:15 Patient unable to answer at this time (ie. confused, unrespo /Reproduction History /Reproductive History - medical claims manager: /Reproductive Hx- medical claims manager Hx Now Gestational Age (in weeks): EDC: Hx Hx Para Hx Section SAB No 08/13/20 08:35 Active Medications Active Medications: Current Medications Generic Name Dose Route Start Last Admin Trade Name Freq PRN Reason Stop Dose Admin Acetaminophen 650 mg 06/03/24 18:24 06/04/24 10:26 Acetaminophen 325 Mg Tablet PO 650 mg Q6H PRN PRN Administration Pain 1-10 Or Fever >100.7 Albuterol Sulfate 2.5 mg 06/03/24 18:27 Albuterol 2.5 Mg/3 Ml Vial.Neb. INHALATION Q4H PRN wheezing Albuterol/Ipratropium 3 ml 06/03/24 18:35 06/04/24 12:31 Ipratropium/Albuterol Sulfate 3 Ml Ampul.Neb INHALATION 3 ml Q6HWA.RT YAZAN Administration Atorvastatin Calcium 40 mg 06/03/24 22:00 06/03/24 21:53 Atorvastatin Calcium 40 Mg Tablet PO 40 mg QHS YAZAN Administration Budesonide 0.5 mg 06/03/24 18:35 06/04/24 12:31 Budesonide Respules 0.5 Mg/2 Ml Ampul.Neb. INHALATION 0.5 mg Q12H.RT YAZAN Administration Calamine/Phenol 1 applic 06/04/24 10:00 06/04/24 10:25 Menthol/Lanolin/Calamine/Znox 113 Gm Tube TOPICAL 1 applic BID [facility] Administration Protocol Duloxetine HCl 30 mg 06/03/24 21:00 06/03/24 21:53 Duloxetine Hcl 30 Mg Capsule PO 30 mg QPM YAZAN Administration Ezetimibe 10 mg 06/03/24 22:00 06/03/24 21:53 Ezetimibe 10 Mg Tablet PO 10 mg QHS YAZAN Administration Guaifenesin 1,200 mg 06/03/24 18:24 Guaifenesin 1,200 Mg Tablet PO BID PRN cough Pantoprazole Sodium 40 mg/ 110 mls @ 330 mls/hr 06/03/24 18:24 06/04/24 10:52 Sodium Chloride IV Infused Q12 YAZAN Infusion Sodium Chloride 100 mls @ 15 mls/hr 06/03/24 19:37 IV .Q6H40M PRN Saline Flush Sodium Chloride 100 mls @ 15 mls/hr 06/03/24 19:37 IV .Q6H40M PRN Additional IVPB Infusion Sodium Chloride 250 mls @ 15 mls/hr 06/03/24 20:21 06/03/24 20:35 IV 06/04/24 13:00 0 mls/hr .[id number] ONE Infusion Lorazepam 1 mg 06/03/24 20:23 06/03/24 21:52 Lorazepam 1 Mg Tablet PO 1 mg TID PRN Administration ANXIETY Metoprolol Tartrate 50 mg 06/03/24 22:00 06/03/24 21:56 Metoprolol Tartrate 50 Mg Tablet PO 50 mg BID [facility] Administration Protocol Nitroglycerin 0.4 mg 06/03/24 18:24 Nitroglycerin (Inpatient Use) 0.4 Mg Tab.Subl SL Q5M PRN Chest Pain Nutritional Formula (Lactose Free) 120 ml 06/03/24 22:00 06/04/24 10:16 Ensure Plus High Protein 120 Ml Liquid PO Not Given 4X/DAY YAZAN Ondansetron HCl 4 mg 06/03/24 18:24 Ondansetron Odt 4 Mg Tablet PO DAILY PRN nausea and vomiting Ondansetron HCl 4 mg 06/03/24 18:24 Ondansetron 4 Mg/2 Ml Vial IV Q8H PRN PRN NAUSEA/VOMITING Oxycodone HCl 5 mg 06/03/24 18:24 06/04/24 10:27 Oxycodone 5 Mg Tablet PO 5 mg Q4H PRN Administration Pain Score 1-10 Sodium Chloride 10 - 40 ml 06/03/24 19:37 0.9% Saline Lock 10 Ml Syringe IV UD PRN SALINE FLUSH Tamsulosin HCl 0.4 mg 06/03/24 21:00 06/03/24 21:52 Tamsulosin Hcl 0.4 Mg Capsule PO 0.4 mg QPM YAZAN Administration PFSH Medical History (Updated 06/03/24 @ 22:[address] Aj Martinez MD) Chronic respiratory failure with hypoxia and hypercapnia COPD exacerbation Angina at rest Pulmonary embolus COVID Fecal occult blood test positive Abnormal chest CT COPD with acute exacerbation Squamous cell carcinoma of left lung Lung mass Depression Myocardial infarct Coronary artery disease Pulmonary neoplasm Wears glasses Wears dentures Cancer Anxiety Abrasion History of steroid therapy Prostate disease High cholesterol Injury of back Syncope History of weight loss Former smoker COPD (chronic obstructive pulmonary disease) On home oxygen therapy Shortness of breath on exertion Chronic cough History of stress test Cardiology follow-up encounter Chest pain No pertinent family history 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 Nocturnal hypoxemia Chronic hypoxemic respiratory failure Bronchiectasis Prostate CA CAD (coronary artery disease) HLD (hyperlipidemia) Benign essential HTN Home Medications ?Medication ?Instructions ?Recorded ?Last Taken ?Type nitroglycerin 0.4 mg sublingual 0.4 mg sublingual Q5M PRN Chest 12/29/14 1 Week Ago History tablet Pain ~07/02/20 fluticasone propionate 230 2 puff inhalation BID breat nicho 08/07/22 06/03/24 History mcg-salmeterol 21 mcg/actuation HFA inhaler (Advair HFA) atorvastatin 40 mg tablet 40 mg PO QHS cholesterol 06/02/24 History duloxetine 30 mg capsule,delayed 30 mg PO QPM DEPRESSI ON 03/25/23 06/02/24 History release tamsulosin 0.4 mg capsule 0.4 mg PO QPM BLADDER/ PROST ATE 03/25/23 06/02/24 History tiotropium bromide 2.5 2 puff inhalation DAILY copd 03/25/23 06/03/24 History mcg/actuation mist for inhalation (Spiriva Respimat) ezetimibe 10 mg tablet 10 mg PO DAILY cholesterol 0 09/28/23 06/02/24 History apixaban 5 mg tablet (Eliquis) 5 mg PO BID blood thinn er 10/05/23 06/03/24 History albuterol sulfate 90 mcg/actuation 2 puff inhalation Q 4H PRN wheezing 02/19/24 Unknown History aerosol inhaler aspirin 81 mg tablet,delayed 81 mg PO DAILY heart 01/3106/02/24 History release (Enteric Coated Aspirin) lorazepam 1 mg tablet 1 mg PO TID anxiety 02/19/24 06/02/24 History oxycodone 5 mg tablet 5 mg PO Q4H PRN chronic pain 02/21/24 06/03/24 History ondansetron 4 mg disintegrating 4 mg PO DAILY PRN naus ea and 03/30/24 05/29/24 History tablet vomiting roflumilast 500 mcg tablet 500 mcg PO DAILY 03/30/24 0 06/03/24 History collagenase clostridium histo. 250 1 applic topical DA SHELIA 05/22/24 05/21/24 History unit/gram topical ointment (Santyl) Held on 06/03/24. Instructions: Conflicting Appointment furosemide 20 mg tablet (Lasix) 20 mg PO DAILY weight gain 05/22/24 05/21/24 History guaifenesin 600 mg tablet, 1,200 mg PO BID PRN cough 0 05/22/24 06/03/24 History extended release 12 hr (Mucinex) amoxicillin 875 mg-potassium 1 tab PO BID #10 tabs Unknown Rx clavulanate 125 mg tablet metoprolol tartrate 50 mg tablet 50 mg PO BID #60 tabs 05/24/24 06/03/24 Rx prednisone 10 mg tablet 10 mg PO DAILY #36 tabs 05/0106/03/24 Rx Allergy/AdvReac Type Severity Reaction Status Date / Time isosorbide (From Imdur) Allergy Other-patient Verified 06/03/24 15:00 blacks out Family History Mother Cancer Father Heart disease COPD (chronic obstructive pulmonary disease) Surgical History (Updated 06/03/24 @ 15:[address] Aj Martinez MD) Hx of CABG Hx of heart artery stent Hx of transurethral resection of prostate Hx of pneumonectomy Hx of CABG Social History household members: spouse Smoking Status: Former smoker Tobacco: How many years used: 45 Electronic Cigarette Use: not used how long ago did patient quit smokin, second hand exposure: Yes alcohol intake: never substance use type: does not use Review of Systems (Anesthesia) ROS Narrative System reviewed and no additional complaints, except as documented. 06/04/24 1254 <Electronically signed by Durga Morales at> Date _ Durga Pierce Signature: Date CC: ~ Signed [facility] Work Phone: [phone] 883-102904-05-2025 Procedure [facility] 06-04-2024 Discharge summary Author Aj Martinez [facility] Note Date/Time June 03, 2024 10:4 1pm [facility] Medical Records Department [address] [place] [address] Emergency Department Summary 06/03/24 MR#: [id number] Acct: [id number] Name: OSWALDO CORLEY Rep #:[id number] : 1940 83 From: Aj Martinez MD PCP: Dr. Mei Cummins MD Status:AD M IN Location: [place] [address]-1 HPI HPI - GI History of Present Illness Chief Complaint: GI Bleed Informant: patient and spouse/S.O. Narrative Narrative: 83-year-old male presenting for GI bleeding. He states he has had 4 episodes ofmoderate to severe amounts of bright of blood per rectum today. He had an episode of lightheadedness but no syncope. Denies any significant abdominal pain. No nausea or vomiting associated with this. He states at 1 point earlierhe felt a little short of breath but that is better now. Was recently admitted couple weeks ago for COPD exacerbation and treated for pneumonia, he states all that has been doing better. He continues to take Eliquis. [facility] Medical History (Updated 06/03/24 @ 22:[address] Aj Martinez MD) Chronic respiratory failure with hypoxia and hypercapnia COPD exacerbation Angina at rest Pulmonary embolus COVID Fecal occult blood test positive Abnormal chest CT COPD with acute exacerbation Squamous cell carcinoma of left lung Lung mass Depression Myocardial infarct Coronary artery disease Pulmonary neoplasm Wears glasses Wears dentures Cancer Anxiety Abrasion History of steroid therapy Prostate disease High cholesterol Injury of back Syncope History of weight loss Former smoker COPD (chronic obstructive pulmonary disease) On home oxygen therapy Shortness of breath on exertion Chronic cough History of stress test Cardiology follow-up encounter Chest pain No pertinent family history 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 Nocturnal hypoxemia Chronic hypoxemic respiratory failure Bronchiectasis Prostate CA CAD (coronary artery disease) HLD (hyperlipidemia) Benign essential HTN Home Medications ?Medication ?Instructions ?Recorded ?Last Taken ?Type nitroglycerin 0.4 mg sublingual 0.4 mg sublingual Q5M PRN Chest 12/29/14 1 Week Ago History tablet Pain ~07/02/20 fluticasone propionate 230 2 puff inhalation BID breat nicho 08/07/22 06/03/24 History mcg-salmeterol 21 mcg/actuation HFA inhaler (Advair HFA) atorvastatin 40 mg tablet 40 mg PO QHS cholesterol 06/02/24 History duloxetine 30 mg capsule,delayed 30 mg PO QPM DEPRESSI ON 03/25/23 06/02/24 History release tamsulosin 0.4 mg capsule 0.4 mg PO QPM BLADDER/ PROST ATE 03/25/23 06/02/24 History tiotropium bromide 2.5 2 puff inhalation DAILY copd 03/25/23 06/03/24 History mcg/actuation mist for inhalation (Spiriva Respimat) ezetimibe 10 mg tablet 10 mg PO DAILY cholesterol 0 09/28/23 06/02/24 History apixaban 5 mg tablet (Eliquis) 5 mg PO BID blood thinn er 10/05/23 06/03/24 History albuterol sulfate 90 mcg/actuation 2 puff inhalation Q 4H PRN wheezing 02/19/24 Unknown History aerosol inhaler aspirin 81 mg tablet,delayed 81 mg PO DAILY heart 01/3106/02/24 History release (Enteric Coated Aspirin) lorazepam 1 mg tablet 1 mg PO TID anxiety 02/19/24 06/02/24 History oxycodone 5 mg tablet 5 mg PO Q4H PRN chronic pain 02/21/24 06/03/24 History ondansetron 4 mg disintegrating 4 mg PO DAILY PRN naus ea and 03/30/24 05/29/24 History tablet vomiting roflumilast 500 mcg tablet 500 mcg PO DAILY 03/30/24 0 06/03/24 History collagenase clostridium histo. 250 1 applic topical DA SHELIA 05/22/24 05/21/24 History unit/gram topical ointment (Santyl) Held on 06/03/24. Instructions: Conflicting Appointment furosemide 20 mg tablet (Lasix) 20 mg PO DAILY weight gain 05/22/24 05/21/24 History guaifenesin 600 mg tablet, 1,200 mg PO BID PRN cough 0 05/22/24 06/03/24 History extended release 12 hr (Mucinex) amoxicillin 875 mg-potassium 1 tab PO BID #10 tabs Unknown Rx clavulanate 125 mg tablet metoprolol tartrate 50 mg tablet 50 mg PO BID #60 tabs 05/24/24 06/03/24 Rx prednisone 10 mg tablet 10 mg PO DAILY #36 tabs 05/0106/03/24 Rx Allergy/AdvReac Type Severity Reaction Status Date / Time isosorbide (From Imdur) Allergy Other-patient Verified 06/03/24 15:00 blacks out Family History Mother Cancer Father Heart disease COPD (chronic obstructive pulmonary disease) Surgical History (Updated 06/03/24 @ 15:[address] Aj Martinez MD) Hx of CABG Hx of heart artery stent Hx of transurethral resection of prostate Hx of pneumonectomy Hx of CABG Social History household members: spouse Smoking Status: Former smoker Tobacco: How many years used: 45 Electronic Cigarette Use: not used how long ago did patient quit smokin, second hand exposure: Yes alcohol intake: never substance use type: does not use ROS ROS ED Constitutional Constitutional ED: Reports weakness; Denies chills or fever(s) Eyes Eyes: Denies change in vision or diplopia ENT ENT ED: Denies rhinorrhea or sore throat Cardiovascular Cardiovascular: Reports lightheadedness; Denies chest pain, palpitations or syncope Respiratory/Chest Respiratory/Chest: Reports dyspnea; Denies cough Gastrointestinal Gastrointestinal: Reports hematochezia; Denies abdominal pain, diarrhea, melena,nausea or vomiting Genitourinary Genitourinary ED: Denies dysuria or hematuria Musculoskeletal Musculoskeletal: Denies back pain or neck pain Integumentary Denies abscess or rash Neurologic Neurologic: Denies headache(s), paresthesias or weakness Psychiatric Psychiatric: Denies anxiety or suicidal thoughts EXAM Physical Exam Const Vital Signs: 06/03/24 15:00 06/03/24 16:00 06/03/24 17:00 Temperature 97.6 F L 98.4 F Temperature Source Oral Pulse Rate 98 93 92 Respiratory Rate 24 H 23 H 24 H Blood Pressure 95/69 90/57 L 90/64 Blood Pressure Mean 77 68 72 Pulse Ox 96 100 100 Oxygen Delivery Method Room Air Room Air Positive well nourished and well developed General Appearance ED: well developed and NAD HEENT Reports moist mucous membranes normocephalic and atraumatic Eyes PERRL and EOMs intact bilaterally Neck full ROM and supple Resp normal respiratory effort and clear to auscultation bilaterally Effort and Inspection: Negative for respiratory distress Cardio regular rate and regular rhythm GI non-tender and non-distended GI Narrative: On rectal there is trace amount of blood present, there is no active bleeding/pooling. No tenderness. Auscultation: normoactive bowel sounds Palpation: soft Back/Spine no CVA tenderness General Back: other FROM Extremity normal to inspection General Extremety ED: Negative for edema, pulses abnormal or tenderness General Extremity: Negative for edema or pulses abnormal Neuro oriented x3, CN's II-XII intact bilaterally and no sensory deficits noted Sensorium / Orientation: awake and alert Motor Exam: strength 5/5 throughout Psych mental status grossly normal and thought process normal Skin no rashes or lesions noted and no wounds MDM MDM MDM Narrative Medical decision making narrative: I reviewed some prior records on this patient. He was scoped by Dr. Moreno lastyear, angiodysplasia was seen in the colon and some in the duodenum and couple plaques in the esophagus, he had argon laser treatment of the bleeding angiodysplastic lesions of the colon. Repeat scope the next month everything was better. Patient states he is having bleeding now similar to that time last year. His blood pressure is a little soft but clinically he is doing well and not actively bleeding. Pushed IV fluid bolus while getting his blood counts, chest x-ray, and an EKG. One-view chest x-ray on my interpretation shows chronicabnormalities radiology in agreement these are stable. His EKG shows no acute injury pattern, sinus rhythm on my interpretation, some nonspecific lateral T wave abnormalities. His hemoglobin is 10.2, however this is before getting a liter of IV fluids. Pressures improved after liter of IV fluids. Patient is not actively bleeding and clinically stable, but given his anticoagulation and nature of the bleeding today and history, I think admission indicated. Discussed with Dr. Moreno GI and hospitalist. While in the ED prior to going up to the floor, the patient had sat on bedside commode to have a bowel movement, he had a very small amount of blood, but he had a brief syncopal episode. He did not fall or injure himself, was immediately put back in bed and on the monitor where he was tachycardic, not bradycardic. Therefore probably was due to orthostasis as he had not completed the first half of his IV fluids yet, and less likely to be vasovagal episode. Nursing advised to open the IV fluids and bolus. Patient doing well afterwards and not hypoxic. History & Record Review Additional record(s) reviewed:: Prior inpatient record Lab Data Attestation: I reviewed the patient's lab results. Labs: Laboratory Results - last 24 hr 06/03/24 16:00 WBC 20.3 H RBC 3.81 L Hgb 10.2 L Hct 34.1 L MCV 89.5 MCH 26.8 L MCHC 29.9 L RDW Std Deviation 52.9 H RDW Coeff of Estelita 16.1 H Plt Count 364 MPV 9.6 Immature Gran % (Auto) 1.500 H Neut % (Auto) 91.5 H Lymph % (Auto) 3.2 L Posey % (Auto) 3.7 Eos % (Auto) 0.0 Baso % (Auto) 0.1 Absolute Neuts (auto) 18.5 H Absolute Lymphs (auto) 0.65 L Nucleated RBC % 0 Sodium 139 Potassium 5.2 H Chloride 102 Carbon Dioxide 25.7 Anion Gap 11 BUN 34 H Creatinine 1.10 Estim Creat Clear Calc 55.95 Est GFR (MDRD) Non-Af 67 BUN/Creatinine Ratio 30.8 H Glucose 144 H Calcium 9.0 Blood Type O NEGATIVE Antibody Screen NEGATIVE Crossmatch See Detail Radiography Diagnostic Testing: Clinical Impression(s) from Imaging Studies Chest X-Ray 06/03/24 16:00 IMPRESSION: Stable multifocal airspace opacities, more prominent in the left hemithorax. Emphysema. Reading [facility] Rhythm Strip Rhythm Strip: Sinus Rhythm Rate: 95 Ectopy: None EKG Initial EKG: Attestation: I personally reviewed and interpreted this EKG as follows: Interpretation: Sinus Rhythm, No Acute Injury Pattern and Non-Specific ST Changes Management Discussion w/another healthcare provider: Hospitalist and City Recorder (ZBIGNIEW Moreno-available to evaluate and see) Discharge Plan Dx/Rx/DC Orders Clinical Impression: Acute lower gastrointestinal bleeding, Orthostatic syncope, ABLA (acute blood loss anemia) Disposition Disposition: Acute Care Hospital [facility] Discharge Date/Time: 06/03/24 18:45 What to do if you have Problems For any increased pain, shortness of breath, bleeding, nausea or vomiting, chestpain, or any unexpected problems, contact your Primary Care Provider. Call [facility] ([phone]) or report to the closest Emergency Room. Call 911 if necessary. 06/03/241 <Electronically signed by Aj Martinez MD> Cosigner Signature (if applicable): CC: Dr. Mei Cummins MD ~ Signed [facility] Work Phone: 1(338) 900-391404-04-2025 Progress note Author Sushila Rivers [facility] Note Date/Time June 03, 2024 8:10 pm [facility] Medical Records Department [address] [place] [id number] Progress Note - Hospitalist 06/03/242008 MR#: [id number] Acct: [id number] Name: OSWALDO CORLEY Rep #:[id number] : 1940 83 From: Sushila Rivers MD PCP: Dr. Mei Cummins MD Status:AD M IN Location: [place] [address] Hospitalist Note Patient per discussion with Dr. Santamaria with syncopal event in the ED prior to floor transition. She had requested repeat STAT HH which is now resulting 8.4, patient orthostatic. Will release held blood. IVF bolus currently running and BPimproved from prior. Will place on telemetry. 06/03/242009 <Electronically signed by Sushila Rivers MD> Cosigner Signature (if applicable): CC: ~ Signed [facility] Work Phone: 1(358) 786-381004-04-2025 History and physical note Author Elizabeth [facility] Note Date/Time June 03, 2024 7:20 pm [facility] Medical Records Department [address] [place] [id number] H&P Exam - Hospitalist 06/03/24 1716 MR#: [id number] Acct: [id number] Name: OSWALDO CORLEY Rep #:[id number] : 1940 83 From: Elizabeth Santamaria MD PCP: Dr. Mei Cummins MD Status:AD M IN Location: [place] [address] HPI - General General Date of Admission: 06/03/24 Date of Service: 06/03/24 Chief Complaint: GI bleed HPI Narrative OSWALDO CORLEY, is a 83 M with a pMH as outlined including a history of GI bleedwho presents via the ED on 06/03/2024 with a complaint of rectal bleeding. He had 4 episodes of rectal bleeding since yesterday. He admitted to lightheadedness and dizziness, but denied any chest pain, palpitations, nausea, vomiting or any other symptoms. Review of systems was otherwise negative. [facility] BP of 90/64, [place] of 92, RR of 24 and temp of 98.4F. HE was saturating at 100% on room air. CBC showed Hb of 10.2, wbc of 20.3 and plateletsof 364. CHemistry showed sodium of 139 and potassium of 5.2. Cr is 1.1. Chest x-ray shows stable multifocal airspace opacities more prominent in the left hemithorax. He is being admitted to be managed for acute on chronic anemia due to GI bleed. [facility] Medical History (Updated 06/03/24 @ 15:[address] Aj Martinez MD) Chronic respiratory failure with hypoxia and hypercapnia COPD exacerbation Angina at rest Pulmonary embolus COVID Fecal occult blood test positive Abnormal chest CT COPD with acute exacerbation Squamous cell carcinoma of left lung Lung mass Depression Myocardial infarct Coronary artery disease Pulmonary neoplasm Wears glasses Wears dentures Cancer Anxiety Abrasion History of steroid therapy Prostate disease High cholesterol Injury of back Syncope History of weight loss Former smoker COPD (chronic obstructive pulmonary disease) On home oxygen therapy Shortness of breath on exertion Chronic cough History of stress test Cardiology follow-up encounter Chest pain No pertinent family history 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 Nocturnal hypoxemia Chronic hypoxemic respiratory failure Bronchiectasis Prostate CA CAD (coronary artery disease) HLD (hyperlipidemia) Benign essential HTN Home Medications ?Medication ?Instructions ?Recorded ?Last Taken ?Type nitroglycerin 0.4 mg sublingual 0.4 mg sublingual Q5M PRN Chest 12/29/14 1 Week Ago History tablet Pain ~07/02/20 fluticasone propionate 230 2 puff inhalation BID breat nicho 08/07/22 06/03/24 History mcg-salmeterol 21 mcg/actuation HFA inhaler (Advair HFA) atorvastatin 40 mg tablet 40 mg PO QHS cholesterol 06/02/24 History duloxetine 30 mg capsule,delayed 30 mg PO QPM DEPRESSI ON 03/25/23 06/02/24 History release tamsulosin 0.4 mg capsule 0.4 mg PO QPM BLADDER/ PROST ATE 03/25/23 06/02/24 History tiotropium bromide 2.5 2 puff inhalation DAILY copd 03/25/23 06/03/24 History mcg/actuation mist for inhalation (Spiriva Respimat) ezetimibe 10 mg tablet 10 mg PO DAILY cholesterol 0 09/28/23 06/02/24 History apixaban 5 mg tablet (Eliquis) 5 mg PO BID blood thinn er 10/05/23 06/03/24 History albuterol sulfate 90 mcg/actuation 2 puff inhalation Q 4H PRN wheezing 02/19/24 Unknown History aerosol inhaler aspirin 81 mg tablet,delayed 81 mg PO DAILY heart 01/3106/02/24 History release (Enteric Coated Aspirin) lorazepam 1 mg tablet 1 mg PO TID anxiety 02/19/24 06/02/24 History oxycodone 5 mg tablet 5 mg PO Q4H PRN chronic pain 02/21/24 06/03/24 History ondansetron 4 mg disintegrating 4 mg PO DAILY PRN naus ea and 03/30/24 05/29/24 History tablet vomiting roflumilast 500 mcg tablet 500 mcg PO DAILY 03/30/24 0 06/03/24 History collagenase clostridium histo. 250 1 applic topical DA SHELIA 05/22/24 05/21/24 History unit/gram topical ointment (Santyl) Held on 06/03/24. Instructions: Conflicting Appointment furosemide 20 mg tablet (Lasix) 20 mg PO DAILY weight gain 05/22/24 05/21/24 History guaifenesin 600 mg tablet, 1,200 mg PO BID PRN cough 0 05/22/24 06/03/24 History extended release 12 hr (Mucinex) amoxicillin 875 mg-potassium 1 tab PO BID #10 tabs Unknown Rx clavulanate 125 mg tablet metoprolol tartrate 50 mg tablet 50 mg PO BID #60 tabs 05/24/24 06/03/24 Rx prednisone 10 mg tablet 10 mg PO DAILY #36 tabs 05/0106/03/24 Rx Allergy/AdvReac Type Severity Reaction Status Date / Time isosorbide (From Imdur) Allergy Other-patient Verified 06/03/24 15:00 blacks out Family History Mother Cancer Father Heart disease COPD (chronic obstructive pulmonary disease) Surgical History (Updated 06/03/24 @ 15:[address] Aj Martinez MD) Hx of CABG Hx of heart artery stent Hx of transurethral resection of prostate Hx of pneumonectomy Hx of CABG Social History household members: spouse Smoking Status: Former smoker Tobacco: How many years used: 45 Electronic Cigarette Use: not used how long ago did patient quit smokin, second hand exposure: Yes alcohol intake: never substance use type: does not use ROS Constitutional Constitutional: Reports malaise and weakness; Denies anorexia, chills, fatigue or fever(s) Eyes Eyes: Denies change in vision ENT HEENT: Denies dysphagia, headache(s) or sore throat Cardiovascular Cardiovascular: Denies chest pain, dyspnea on exertion, edema, lightheadedness, orthopnea, palpitations, paroxysmal nocturnal dyspnea, rapid heart rate or syncope Respiratory/Chest Respiratory/Chest: Denies cough, dyspnea, shortness of breath at rest or shortness of breath with exertion Gastrointestinal Gastrointestinal: Reports hematochezia and loose stools; Denies abdominal pain, constipation, dyspepsia, hematemesis, melena, nausea or vomiting Genitourinary Genitourinary: Denies dysuria Musculoskeletal Musculoskeletal: Denies arthralgias Neurologic Neurologic: Denies confusion, dizziness, focal weakness, headache(s), numbness, seizure-like activity, seizures or syncope Psychiatric Psychiatric: Denies anxiety or depression Hematologic/Lymphatic Hematologic/Lymphatic: Reports anemia Vital Signs Vital Signs Vital Signs: 06/03/24 15:00 06/03/24 16:00 06/03/24 17:00 Temperature 97.6 F L 98.4 F Temperature Source Oral Pulse Rate 98 93 92 Respiratory Rate 24 H 23 H 24 H Blood Pressure 95/69 90/57 L 90/64 Blood Pressure Mean 77 68 72 Pulse Ox 96 100 100 Oxygen Delivery Method Room Air Room Air Weight Weight: 165 lb 9.074 oz Body Mass Index (BMI) 22.4 Physical Exam Const alert, oriented x3 and no apparent distress General Appearance: cooperative HEENT normocephalic, head/scalp atraumatic, hearing grossly normal bilaterally and moist oral mucous membranes Mouth: oral and palatal mucosa normal Eyes PERRL, EOMs intact bilaterally and conjunctivae normal Neck no lymphadenopathy and supple Resp normal respiratory effort, no retractions, no use of accessory muscles and clearto auscultation bilaterally Cardio regular rate, regular rhythm, S1 normal heart sound, S2 normal heart sound and no murmurs GI normal to inspection, nondistended, normoactive bowel sounds, soft to palpation,non-tender and non-distended Extremity normal to inspection, full ROM and no clubbing, cyanosis or edema Neuro oriented x3, CN's II-XII intact bilaterally, moves all extremities and no focal motor deficits Sensorium / Orientation: awake and alert Motor Exam: strength 5/5 throughout Psych affect normal Results Lab / Micro Data 06/03/24 16:00 06/03/24 16:00 Labs: Laboratory Results - last 24 hr 06/03/24 16:00: WBC 20.3 H, RBC 3.81 L, Hgb 10.2 L, Hct 34.1 L, MCV 89.5, MCH 26.8 L, MCHC 29.9 L, RDW Std Deviation 52.9 H, RDW Coeff of Estelita 16.1 H, Plt Count 364, MPV 9.6, Immature Gran % (Auto) 1.500 H, Neut % (Auto) 91.5 H, Lymph % (Auto) 3.2 L, Posey % (Auto) 3.7, Eos % (Auto) 0.0, Baso % (Auto) 0.1, AbsoluteNeuts (auto) 18.5 H, Absolute Lymphs (auto) 0.65 L, Nucleated RBC % 0, Sodium 139, Potassium 5.2 H, Chloride 102, Carbon Dioxide 25.7, Anion Gap 11, BUN 34 H,Creatinine 1.10, Estim Creat Clear Calc 55.95, Est GFR (MDRD) Non-Af 67, BUN/Creatinine Ratio 30.8 H, Glucose 144 H, Calcium 9.0, Blood Type O NEGATIVE, Antibody Screen NEGATIVE Rhythm Strip Rhythm Strip: Sinus Rhythm Rate: 95 Ectopy: None Imaging Radiology Impression Chest X-Ray 06/03/24 16:00 IMPRESSION: Stable multifocal airspace opacities, more prominent in the left hemithorax. Emphysema. Reading [facility] Assessment & Plan Assessment/Plan (1) Acute lower gastrointestinal bleeding: PLAN: Plan #Acute lower GI bleed likely due to bleeding diverticula * Admit for 1 day prior to admission. MedSurg. He was admitted with a complaint of lower GI bleed and had had about 4 episodes of sarika red blood per rectum * Patient had a similar lower GI bleed in October [address] angiogram of the abdomen and pelvis to rule out any small bowel bleeding. 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 He also had EGD which showed normal esophagus and small hiatal hernia and no gross lesions in the fourth portion of the duodenum and colonoscopy showed diverticulosis in the entire examined colon. * Keep NPO. Hydrate with IV fluids. Type and cross transfuse if hemoglobin drops to less than 7. Consult gastroenterology. #Chronic respiratory failure due to COPD * Stable. On 4 L of oxygen which is his baseline. Breathing treatments bronchodilators. #History of chronic aortic mural thrombus: On Eliquis. Will hold this for now due to GI bleed #History of esophageal candidiasis: Fluconazole #History of lung cancer * Has known squamous cell carcinoma of the left lower lobe. Currently stable. #History of anxiety and depression: On Cymbalta DVT prophylaxis: SCDs CODE STATUS: DNRCCA no intubation * Patient counseled extensively about different types of CODE STATUS including full code, DNR CCA and DNR CCA. * Patient elects to be DNRCCA no intubation. * Total aglp-km-zpol time 16 minutes. Charges/Coding Visit Charges Inpatient E&M: 93524 Init Hosp L3 Procedures Hospitalists Procedures: 69103 Advncd Care Plan 30 Min 06/03/241909 <Electronically signed by Elizabeth Santamaria MD> Cosigner Signature (if applicable): CC: Dr. Mei Cummins MD; Dr. Elizabeth Santamaria MD~ Signed ADDENDUM by Dr. Elizabeth Santamaria MD on 06/03/24 at 1911 Addendum Leukocytosis * WBC is 20.3. Patient was apparently recently on steroids for COPD exacerbations of this likely the cause. No clear evidence of infection. Will monitor and initiate infection workup if leukocytosis does not improve. * #Hyperkalemia: Potassium is 5.2. Will give Kayexalate and hold any nephrotoxic meds. Will trend potassium 06/03/241910<Electronically signed by Elizabeth Santamaria MD> Cosigner Signature (if applicable): cc: Dr. Mei Cummins MD; Dr. Elizabeth Santamaria MD ~* Signed ADDENDUM by Dr. Elizabeth Santamaria MD on 06/03/24 at 1920 Addendum #History of PE * Of note patient has a history of PE and states he is on Eliquis for that reason. As far as he remembers was only 1 episode of PE. He follows with Dr. Rajan also. Will need to discuss whether to stop blood thinners or not depending on the findings of the scope. 06/03/241919<Electronically signed by Elizabeth Santamaria MD> Cosigner Signature (if applicable): cc: Dr. Mei Cummins MD; Dr. Elizabeth Santamaria MD ~* Signed [facility] Work Phone: 1(526) 195-828304-04-2025 Radiology Diagnostic study [facility]04-03-2025 Telephone encounter Note* Telephone Encounter - Vickie Carrillo MA - 06/02/2024 3:09 PM EDT PCP agreeable, no need to call back per Triage note below. Vickie Carrillo MA [facility]04-03-2025 Miscellaneous Notes* Telephone Encounter - Vickie Carrillo MA - 06/02/2024 3:09 PM EDT PCP agreeable, no need to call back per Triage note below. Vickie Carrillo MA * Telephone Encounter - Mei Cummins MD - 06/02/2024 1:48 PM EDT Noted and agree Mei Cummins MD * Telephone Encounter - Naty Ley RN - 06/02/2024 1:22 PM EDT Naty calling from [facility] to report plan of care for patient and residential will visit patient 1 time a week for 4 weeks. Naty also noted that upon hospital discharge patient was prescribed metoprolol 50 mg BID (Patient as previously on 12.5 mg BID). Patient was feeling dizzy on the 50 mg BID. Patient cut dosage inhalf to 25 mg BID. Patient blood pressure was good during home health visit today. No call back needed unless provider not ok with above, Naty Ley RN [facility] Telephone encounter Note * Telephone Encounter - Mei Cummins MD - 06/02/2024 1:48 PM EDT Noted and agree Mei Cummins MD [facility]04-03-2025 Telephone encounter Note* Telephone Encounter - Naty Ley RN - 06/02/2024 1:22 PM EDT Naty calling from [facility] to report plan of care for patient and residential will visit patient 1 time a week for 4 weeks. Naty also noted that upon hospital discharge patient was prescribed metoprolol 50 mg BID (Patient as previously on 12.5 mg BID). Patient was feeling dizzy on the 50 mg BID. Patient cut dosage inhalf to 25 mg BID. Patient blood pressure was good during home health visit today. No call back needed unless provider not ok with above, Naty Ley RN [facility]04-02-2025 History of Present illness Narrative* Kailash Cordova APRN.LEGAL STENOGRAPHER - 06/01/2024 2:00 PM EDT Images from the original note were not included. Pulmonary Medicine Patients name: Oswaldo Corley PCP: Mei Cummins MD CC: hospital follow-up HPI: Oswaldo Corley is a 83 year old male former 49-kwoo-vurc smoker, quitting 2002 with PMH significant for CAD s/p CABG/stents, AAA, DM2, HTN, prostate cancer s/p radiation and hormonal therapy, squamous cell carcinoma of the lung s/p left thoracoscopy, conversion to mini thoracotomy, evacuation of pleural effusion, wedge resection 01/2020, multiple lung nodules, COPD, PE on Eliquis and Bronchiectasis. Current maintenance therapy consists of Advair, Spiriva, and as needed Albuterol. JOSE M 03/23/24 and was started on Daliresp d/t recurrent exacerbations. He initially didn't tolerate the full dose d/t dizziness and discontinued. He attempted again in early April and was able to tolerate 500 mcg. Unfortunately, he was hospitalized 05/22-05/24 for COPD exacerbation. Discharged home on A ugmentin and Prednisone. Today, patient reports chronic cough with clear sputum (typically light green in color). No hemoptysis. No wheezing. Intermittent dyspnea at rest. Exertional dyspnea is worsefrom baseline but getting better each day. No fevers, chills, or night sweats. No unintended weightloss. Currently using Albuterol once a day. DME: [employer] 4-5L O2 PAST MEDICAL HISTORY Diagnosis Date Abdominal aortic aneurysm (AAA) without rupture (HCC) 11/19/2018 Atypical chest pain CAD (coronary artery disease) s/p CABG 1999, PCI w/ stents Chronic respiratory failure (HCC) COPD (chronic obstructive pulmonary disease) (HCC) Hyperlipidemia Hyperlipidemia Hypertension Lung cancer (HCC) Prostate cancer (HCC) Dx Dec 2014, s/p radiation, on hormonal therapy Ulcer of right foot (HCC) 04/30/2022 Allergies: Imdur [Isosorbide M* Hives Comment:Black out and dizziness Medication List Accurate as of May 28, 2024 11:09 AM. If you have any questions, ask your nurse or doctor. CONTINUE taking these medications acetaminophen 325 mg Cap ADVAIR HFA 230-21 mcg/actuation inhaler Generic drug: fluticasone-salmeterol HFA albuterol HFA 90 mcg/actuation inhaler Commonly known as: PROAIR HFA Inhale 2 Puffs as instructed every 4 hours as needed for wheezing/shortness of breath. apixaban 5 mg tab(s) Commonly known as: ELIQUIS Take 1 tablet by mouth two times a day. aspirin, enteric coated 81 mg EC tablet Commonly known as: ASPIRIN, ENTERIC COATED atorvastatin 40 mg tablet Commonly known as: LIPITOR Take 1 tablet by mouth once daily. DULoxetine 30 mg capsule Commonly known as: CYMBALTA ezetimibe 10 mg tablet Commonly known as: ZETIA Take 1 tablet by mouth once daily. furosemide 20 mg tablet Commonly known as: LASIX Take 1 tablet by mouth once daily. guaiFENesin 600 mg 12 hr tablet Commonly known as: MUCINEX iv contrast (will be provided with radiology test) CT Chest W -Inject, intravenously, once for 1 dose.No IV access, insert saline lock prior to the beginning of sedation, infusion, injection of imaging exam. Discontinue saline lock post exam. If Pt. has a central line or IVAD, may access for administration according to line specific nursing protocol. Once exam is complete flush line and de-access according to line specific nursing protocol in theCT contrast administration guidelines link. LORazepam 1 mg tablet Commonly known as: ATIVAN Take 1 tablet by mouth three times a day for 90 days. metoprolol tartrate (short acting) 25 mg tablet Commonly known as: LOPRESSOR Take 0.5 tablets by mouth two times a day. Take 0.5 tab po bid. nitroglycerin sublingual 0.4 mg SL tablet Commonly known as: NITROSTAT Dissolve 1 tablet under the tongue every 5 minutes as needed. ondansetron 4 mg tablet Commonly known as: ZOFRAN oxyCODONE IR 5 mg immediate release tablet Commonly known as: ROXICODONE OXYGEN (HOME THERAPY) predniSONE 10 mg tablet Commonly known as: DELTASONE Take 1 tablet by mouth once daily. RESTASIS 0.05 % ophthalmic emulsion Generic drug: cycloSPORINE roflumilast 500 mcg Tab Commonly known as: DALIRESP Take 1 tablet by mouth once daily. SantyL ointment Generic drug: collagenase Apply to affected area once daily. APPLY TO AFFECTED AREA SPIRIVA RESPIMAT 2.5 mcg/actuation inhaler Generic drug: tiotropium bromide Inhale 2 Puffs as instructed once daily. tamsulosin 0.4 mg Commonly known as: FLOMAX DATA: I personally reviewed and analyzed all labs, radiographs and available pulmonary function testing PFT: 09/2022 Spirometry indicates severe obstruction. There was not a significant bronchodilator response. The diffusing capacity is moderately reduced. The presence of a reduced lung diffusing capacity - that does not normalize when measured independent of alveolar volume (kCO) suggests a parenchymal or pulmonary vascular disorder. CXR: OSH 05/22/24 EXAM: CHEST PA AND LATERAL CLINICAL HISTORY: DYSPNEA, CHRONIC RESPIRATORY FAILURE, WHEEZING COMPARISON: None. TECHNIQUE: Four view PA and lateral views of the chest obtained. RAD/Chest PA and Lateral IMPRESSION: Prior sternotomy again noted. Persistent left upper and lower lung areas increased density, most probably representing scarring, not clearly changed. Areas of lesser changes are seen of the right, with marked interval improvement in the right lower lung airspace disease compared with the study of 02/19/2024. No new or worsened pneumonic process is seen. Probable small left pleural effusion. No definite right pleural effusion is seen. No pneumothorax is noted. The cardiomediastinal silhouette is stable, without evidence of cardiomegaly. Reading Location: [address] Chest: 03/2024 IMPRESSION: 1. New and worsening bronchiectasis with irregular patchy and groundglass opacities in the middle and RIGHT lower lobes, favoring infection. 2. Near complete interval resolution of suspected pneumonia in the LEFT lower lobe seen on 01/12/2024. 3. Interval resolution of the spiculated nodularity seen in the posterior RIGHT upper lobe on 01/12/2024, most likely resolving infection. 4. Unchanged thick walled pleural-based cavitation in the periphery of the LEFT lower lobe adjacent to wedge resection sutures. 5. Unchanged curvilinear opacity with adjacent architectural distortion in the LEFT upper lobe. Neonatal Pediatric Nurse: PSCB Transcribe Date/Time: Mar 16 2024 3:35P Dictated by : HILDA GONSALVES MD This examination was interpreted and the report reviewed and electronically signed by: HILDA GONSALVES MD on Mar 16 2024 3:47PM EST Results-Findings * * *Final Report* * * DATE OF EXAM: Mar 14 2024 2:37PM [facility] 0539 - CT CHEST W IVCON / PROCEDURE REASON: Squamous carcinoma of lung, left (HCC) * * * * Physician Interpretation * * * * EXAMINATION: CHEST CT WITH CONTRAST CLINICAL HISTORY: Squamous cell carcinoma follow-up. Technique: Spiral CT acquisition of the chest from the thoracic inlet to the upper abdomen following IV contrast. MQ: [id number] Contrast: 50 mL Omnipaque [address] Radiation dose: Integrated Dose-length product (DLP) for this visit = 234 mGy*cm CT Dose Reduction Employed: Automated exposure control(AEC) and iterative recon Comparison: Multiple prior chest CT, most recent on 01/12/2024. RESULT: Limitations: None. Lines, tubes, and devices: None. Lung parenchyma and airways: * Unchanged curvilinear opacity with adjacent architectural distortion in the LEFT upper lobe on series 6 image 59. * New and worsening bronchiectasis with irregular patchy and groundglass opacities in the middle and RIGHT lower lobes with associated architectural distortion best seen on series 6 image 142. * Thick walled pleural-based cavitation in the periphery of the LEFT lower lobe on series 6 image 41 adjacent wedge resection sutures is unchanged in size or appearance. The previously new consolidative and patchy opacities in the LEFT lower lobe on 01/12/2024 has nearly completely resolved. There is some persistent multifocal mucus plugging in the LEFT lower lobe. * Interval resolution of the spiculated nodularity seen in the posterior RIGHT upper lobe on 01/12/2024. * A few additional sub-4 mm pulmonary nodules are unchanged. Pleural space: Unchanged calcified RIGHT pleural plaques. Possible trace RIGHT pleural effusion. Pleural-based cavitation in the dependent LEFT thorax described above. Lower neck, lymph nodes, and mediastinum: The imaged thyroid gland is normal. No lymphadenopathy in the supraclavicular, axillary, mediastinal, or hilar regions. Heart, pericardium, and thoracic vessels: The thoracic aorta and main pulmonary artery are normal in caliber. The cardiac chambers are normal in size. Prior median sternotomy. Coronary artery atherosclerotic calcifications are noted, although the study is not optimized for coronary assessment. No pericardial effusion or thickening. Bones and soft tissues: Thoracotomy changes in the lateral LEFT ribs. Upper abdomen: Cholelithiasis. Colonic diverticulosis. Localizer images: No additional findings. Labs: WBC (k/uL) Date Value 12/08/2023 12.26 04/23/2021 9.21 RBC (m/uL) Date Value 12/08/2023 4.31 04/23/2021 5.07 Hemoglobin (g/dL) Date Value 12/08/2023 11.8 04/23/2021 14.8 Hematocrit (%) Date Value 12/08/2023 40.0 04/23/2021 46.2 Platelet Count (k/uL) Date Value 12/08/2023 171 04/23/2021 180 MPV (fL) Date Value 12/08/2023 9.8 04/23/2021 8.5 Neut% (%) Date Value 04/23/2021 85.8 Neutrophils % (%) Date Value 12/08/2023 92.4 Eosin% (%) Date Value 04/23/2021 1.0 Eosinophils % (%) Date Value 12/08/2023 0.0 Baso% (%) Date Value 04/23/2021 0.2 Basophils % (%) Date Value 12/08/2023 0.2 Abs Neut (ANC) (k/uL) Date Value 04/23/2021 7.90 Abs Neut (k/uL) Date Value 12/08/2023 11.33 Abs Posey (k/uL) Date Value 12/08/2023 0.37 04/23/2021 0.57 Abs Eosin (k/uL) Date Value 12/08/2023 <0.03 04/23/2021 0.09 Abs Baso (k/uL) Date Value 12/08/2023 <0.03 04/23/2021 <0.03 IMMUNIZATIONS Prevnar - xx Pneumovax 23 - xx Influenza - 12/2023 COVID-19 - 01/2024 RSV- xx Review of Systems Constitutional: Negative for activity change, appetite change and unexpected weight change. HENT: Negative for congestion. Respiratory: Positive for cough and shortness of breath. Negative for chest tightness and wheezing. Cardiovascular: Positive for leg swelling. Negative for chest pain and palpitations. Neurological: Negative for dizziness and weakness. BP 112/58 Pulse 76 Resp 22 SpO2 96% Physical Exam Vitals reviewed. Constitutional: General: He is not in acute distress. Appearance: Normal appearance. He is normal weight. He is not ill-appearing. HENT: Head: Normocephalic. Nose: No rhinorrhea. Mouth/Throat: Mouth: Mucous membranes are moist. Pharynx: No oropharyngeal exudate. Cardiovascular: Rate and Rhythm: Normal rate and regular rhythm. Heart sounds: Normal heart sounds. Pulmonary: Effort: Pulmonary effort is normal. No respiratory distress. Breath sounds: No wheezing or rhonchi. Musculoskeletal: Right lower leg: No edema. Left lower leg: No edema. Lymphadenopathy: Cervical: No cervical adenopathy. Skin: General: Skin is warm and dry. Capillary Refill: Capillary refill takes less than 2 seconds. Neurological: General: No focal deficit present. Mental Status: He is alert. ASSESSMENT/PLAN: 1. Hospital discharge follow-up - ICD9: V67.59, ICD10: Z09 (primary diagnosis) - hospitalized 05/22-05/24 for COPD exacerbation - discharged home on Prednisone and Augmentin which he just completed. - symptoms near baseline 2. 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) - ICD9: 496, ICD10: J44.9 - Continue Advair and Spiriva - Albuterol PRN - resume Roflumilast at 250 mcg dose for 10 days prior to increasing back to 500 mcg. 3. Chronic hypoxemic respiratory failure (HCC) - ICD9: 518.83, 799.02, ICD10: J96.11 - continues to be compliant and benefit from supplemental O2 4. Bronchiectasis without complication (HCC) - ICD9: 494.0, ICD10: J47.9 - continue mucous clearing techniques 5. History of cancer of lower lobe bronchus or lung - ICD9: V10.11, ICD10: Z85.118 - Following with oncology - surveillance CT due in August 3 months Portions of this documentation were copied and pasted from previous office visit notes in order to provide a cohesive continuity of the history. The note has been reviewed and edited and updated as necessary. aKilash Cordova APRN.DANELLE I spent a total of 26 minutes on the date of the service which included preparing to see the patient, [id number] patient care, completing clinical documentation, performing a medically appropriate examination, and counseling and educating the patient/family/caregiver. [facility] Tele[facility] encounter Note* Telephone Encounter - Mei Cummins MD - 05/26/2024 3:03 PM EDT Noted and agree Mei Cummins MD [facility]03-27-2025 Miscellaneous Notes* Telephone Encounter - Mei Cummins MD - 05/26/2024 3:03 PM EDT Noted and agree Mei Cummins MD * Telephone Encounter - Naty Ley RN - 05/26/2024 12:04 PM EDT Twila from [facility] calls and states that patient was discharged from [facility] yesterday with the diagnosis of COPD exacerbation. Twila reports that residential was supposed to visit patient, however,patient is declining home health visits until next week. Home Health will visit patient next week per patient request. Please review and advise, Naty Ley RN documented in this encounterPromedica [facility]03-27-2025 Telephone encounter Note * Telephone Encounter - Naty Ley RN - 05/26/2024 12:04 PM EDT Twila from [facility] calls and states that patient was discharged from [facility] yesterday with the diagnosis of COPD exacerbation. Twila reports that residential was supposed to visit patient, however,patient is declining home health visits until next week. Home Health will visit patient next week per patient request. Please review and advise, Naty Ley RN [facility]03-25-2025 Discharge summary [facility] Medical Records Department [address] [place] [id number] Discharge Summary 05/24/24 1405 MR#: [id number] Acct: [id number] Name: OSWALDO CORLEY Rep #:[id number] : 1940 83 From: Malu Steen DO PCP: Dr. Mei Cummins MD Status:AD M IN Location: [facility] [id number] Providers Date of Admission: 05/22/24 Date of Discharge: 05/24/24 Primary Care Physician: Dr. Mei Cummins MD Reason For Visit: COPD EXACERBATION Diagnosis Discharge Diagnosis (1) Acute exacerbation of chronic obstructive pulmonary disease: Status: Chronic Code(s): J44.1 - Chronic obstructive pulmonary disease with (acute) exacerbation Medications at Discharge Home Medications nitroglycerin 0.4 mg sublingual tablet 0.4 mg sublingual Q5M PRN Chest Pain 12/29/14 fluticasone propionate 230 mcg-salmeterol 21 mcg/actuation HFA inhaler (Advair HFA) 2 puff inhalation BID breathing 08/07/22 atorvastatin 40 mg tablet 40 mg PO QHS cholesterol 03/25/23 duloxetine 30 mg capsule,delayed release 30 mg PO QPM DEPRESSION 03/25/23 tamsulosin 0.4 mg capsule 0.4 mg PO QPM BLADDER/ PROSTATE 03/25/23 tiotropium bromide 2.5 mcg/actuation mist for inhalation (Spiriva Respimat) 2 puff inhalation DAILYcopd 03/25/23 ezetimibe 10 mg tablet 10 mg PO DAILY cholesterol 09/28/23 apixaban 5 mg tablet (Eliquis) 5 mg PO BID blood thinner 10/05/23 albuterol sulfate 90 mcg/actuation aerosol inhaler 2 puff inhalation Q4H PRN wheezing 02/19/24 aspirin 81 mg tablet,delayed release (Enteric Coated Aspirin) 81 mg PO DAILY heart 02/19/24 lorazepam 1 mg tablet 1 mg PO TID anxiety 02/19/24 oxycodone 5 mg tablet 5 mg PO Q4H PRN chronic pain 02/21/24 ondansetron 4 mg disintegrating tablet 4 mg PO DAILY PRN nausea and vomiting 03/30/24 roflumilast 500 mcg tablet 500 mcg PO DAILY 03/30/24 collagenase clostridium histo. 250 unit/gram topical ointment (Santyl) 1 applic topical DAILY 05/22/24 cyclosporine 0.05 % eye drops in a dropperette (Restasis) 1 drp ophthalmic (eye)BID 05/22/24 furosemide 20 mg tablet (Lasix) 20 mg PO DAILY weight gain 05/22/24 guaifenesin 600 mg tablet, extended release 12 hr (Mucinex) 1,200 mg PO BID cough 05/22/24 prednisone 10 mg tablet 10 mg PO DAILY 05/22/24 Held on 05/24/24. Instructions: until taper completed amoxicillin 875 mg-potassium clavulanate 125 mg tablet 1 tab PO BID #10 tabs 05/24/24 metoprolol tartrate 50 mg tablet 50 mg PO BID #60 tabs 05/24/24 prednisone 10 mg tablet 10 mg PO DAILY #36 tabs 05/24/24 Hospital Course Procedures - (Chest x-ray/CTA chest) Summary of Care Provided Minutes Spent on Discharge: 38 Hospital Course: Mr. Corley is an 83-year-old white male with a history of COPD and chronic hypoxic and hypercapnic respiratory failure at baseline 4 to 5 L of oxygen at rest and 7 L with exertion and presented to emergency department at [facility] on 05/22/2024 with worsening of breath. He was last hospitalized in January 2024 with acute exacerbation of COPD and concern for pneumonia. He indicated he recovered well at that time has not beenhospitalized since. Patient reported on the day of presentation he had increased shortness of breath since the previous Thursday. He was outside today without issue and symptoms started Thursday morning. He indicated shortness of breath severe enough that he can only walk a few steps without getting severely dyspneic. He denies any any sick contacts. Upon initial evaluation emergency department he was very tachypneic with the rest rate of 40-45 times a minute. Oxygen saturation on 4 L nasal cannula within the mid 80s. Vital signs otherwise were as follows, temperature was 97.4, heartrate 106, blood pressure was 117/59. CBC on presentation showed a white count of 13.5, chronic stable anemia with a hemoglobin of 10.2 and a left shift with 95.5% neutrophilia. A venous blood gas wasperformed and showed a pH of 7.38. Chemistry panel was performed and showed normal electrolytes, normal renal function, his glucose waselevated at 180 but he is on chronic prednisone and his initial lactic acid was 2.7 with an increase to 5.0 and then a subsequent lactate of 4.6. He did have aseries of aerosols I am questioning whether or not his elevated lactate was related to hypoxia initially and then exacerbated by serial aerosols. BNP was 741 and not consistent with heart failure and his procalcitonin was 0.49. Chestx-ray showed previous sternotomy with persistent left upper and lower lung hazy increased density scarring and a probable small left pleural effusion. CTA of the chest was performed and showed ground-glass opacities and extensive changes in the right lower lobe that were concerning for infection versus inflammation as well as progression of areas in the left lower lobe and left upper lobe consistent with scarring and a left lower lobe pleural-based loculated air collection which is chronic. CTA was negative for PE. He was admitted to medical floor and given his significant left shift was placed on community-acquired antibiotics with azithromycin and ceftriaxone. He is also placed on steroids, aerosols and aggressive pulmonary toilet and diuresed some. By 05/24/2024 patient was markedly improved to the point where he only needed 2 L ofoxygen at rest with oxygen s aturation 99% and 3 L of oxygen with exertion and oxygen saturation of 99%. Blood cultures were negative, COVID/flu/RSV was unremarkable, respiratory viral panel was unremarkable and strep pneumo andLegionella antigens were negative. Given his marked improvement with community-acquired antibiotic coverage and his right lower lobe infiltrate he was discharged on antibiotics with Augmentin to complete a 7-day course. He was also placed on a slow prednisone taper and is to continue his home inhalers at the time of discharge. Of asked him to follow-up with his primary care physician within the next week and he has ongoing follow- up for a left lower extremity wound at the wound center. Patient was able to be discharged home in stable condition on 05/24/2024. 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 Chronic pain History of left-sided lung cancer status postsurgical resection Anxiety Depression History of prostate cancer Left lower extremity leg wound Physical Exam Const alert, oriented x3, average body habitus and no limitations; Negative for no apparent distress, healthy appearing or well nourished Constitutional Narrative: Very pleasant, elderly, white male, sitting up in a chair at the bedside, at bedside, patient appears comfortable, nontoxic, currently on baseline oxygen at 2 L while at rest, no signs of conversational dyspnea and no tachypnea General Appearance: cooperative, comfortable, well kempt and well developed Exam Limitations: no limitations Nutritional Appearance: other Other Details: Normal weight HEENT normocephalic, head/scalp atraumatic and moist oral mucous membranes; Negative for hearing grossly normal bilaterally HEENT Narrative: Dentures in place, Mallampati 2, no thrush, mild hearing loss Eyes EOMs intact bilaterally and conjunctivae normal Eyes Narrative: No scleral icterus Neck supple Neck Narrative: Trachea midline, no thyroid enlargement Resp normal respiratory effort, no retractions, no use of accessory muscles and clearto auscultation bilaterally Resp Narrative: Severely diminished diffusely with no adventitious sounds noted at this time, notachypnea or signs of extremis Auscultation: Negative for rales, rhonchi or wheezes Cardio regular rate, regular rhythm, S1 normal heart sound, S2 normal heart sound, no murmurs, no rub, no gallops and no clicks GI normal to inspection, nondistended, normoactive bowel sounds, soft to palpation and non-tender Extremity Extremity Narrative: Slight left lower extremity swelling where her wound is in place but chronic in nature, right lowerextremity within normal limits, pedal pulses are 2+ bilaterally Skin No no wounds, skin turgor normal, no jaundice, no petechiae and no mottling Skin Narrative: Wound on left lower extremity Neuro oriented x3, moves all extremities and no focal motor deficits Speech: speech normal Psych affect normal Psych Narrative: Extremely pleasant, eye contact is good and patient interacts appropriately Weight / BMI Weight Weight: 76.7 kg Body Mass Index (BMI) 22.9 ABG / Lab / Microbiology Data 05/23/24 04:26 05/23/24 04:26 Microbiology: Microbiology 05/22/24 15:10 Blood Culture (Wb) - Anticubital Left Blood Culture - Preliminary No growth in 48 hours. 05/22/24 15:30 Blood Culture (Wb) - Anticubital Left Blood Culture - Preliminary No growth in 48 hours. 05/23/24 03:00 Urine, Clean Catch Legionella Antigen - Final 05/23/24 03:00 Urine, Clean Catch Streptococcus pneumoniae Antigen (M - Final 05/22/24 19:30 Mucosa - Nasopharyngeal Respiratory Panel (PCR) - Final 05/22/24 12:25 Mucosa - Nose SARS-CoV-2, Influenza & RSV (PCR) - Final D/C Instructions Discharge Diet: Low fat / Low cholesterol Discharge Activity: Return to Normal Activity DC O2, CPAP, BIPAP Needs Home O2 Discharge instructions: Yes Type of respiratory needs?: Oxygen Oxygen frequency: ContinuousContinuous oxygen liters per minute: 2 and With AmbulationOxygen liters per minute during Ambulation: 3 DC home with Oxygen: Yes Home O2 MD Review: I have reviewed the oxygen testing, and the patient qualifies for home oxygen equipment and portability. The patient is mobile in the home and the community. Meaningful Use Info Meaningful Use Meaningful Use Diagnoses (Choose all that apply): None applicable Ischemic Stroke Statin Dosing Therapy Reference: STATIN DOSE THERAPY REFERENCE: * Patients > 75 years receive moderate or high dose statin therapy. * Patients 75 years or YOUNGER should receive HIGH intensity statin dose unless contraindicated. You will be required to document reason for non-treatment if statin daily dose does not meet guidelines. HIGH DOSE STATIN THERAPY DAILY Atorvastatin > than or = to 40 mg Rosuvastatin > than or = to 20 mg Amlodipine + Atorvastatin > than or = to 2.5/40 mg Ezetimibe + Simvastatin 10/80 mg Simvastatin 80mg Discharge Plan Admission Admit Date/Time: 05/22/24 15:14 Primary Reason for Your Visit: Shortness of breath Attending Provider: Malu Steen Primary Care Provider: Mei Cummins Consulting Providers: Jacob Suazo; Mei Cortes Instructions Additional Instructions / Restrictions: 1. Please complete entire antibiotic course 2. Please complete prednisone taper and then revert back to your 10 mg daily 3. Please continue to utilize incentive spirometer and Acapella after discharge Discharge Orders/Prescriptions Prescriptions: New metoprolol tartrate 50 mg Tablet 50 mg PO BID Qty: 60 1RF prednisone 10 mg tablet 10 mg PO DAILY Qty: 36 0RF Rx Instructions: 4 tablets x 4 days, 3 tablets x 4 days, 2 tablets x 4 days then restart 10 mgdaily from home dosing amoxicillin-pot clavulanate 875-125 mg tablet 1 tab PO BID Qty: 10 0RF Continued fluticasone propion-salmeterol [Advair HFA] 230-21 mcg/actuation HFA aerosol inhaler 2 puff inhalation BID nitroglycerin 0.4 MG tablet 0.4 mg SL Q5M PRN (Reason: Chest Pain) atorvastatin 40 mg tablet 40 mg PO QHS duloxetine 30 mg capsule,delayed release(DR/EC) 30 mg PO QPM tamsulosin 0.4 mg capsule 0.4 mg PO QPM Spiriva Respimat 2.5 mcg/actuation mist 2 puff INHALATION DAILY Rx Instructions: USES AROUND NOON ezetimibe 10 mg tablet 10 mg PO DAILY Eliquis 5 mg tablet 5 mg PO BID lorazepam 1 mg tablet 1 mg PO TID albuterol sulfate 90 mcg/actuation HFA aerosol inhaler 2 puff inhalation Q4H PRN (Reason: wheezing) aspirin [Enteric Coated Aspirin] 81 mg tablet,delayed release (DR/EC) 81 mg PO DAILY oxycodone 5 mg tablet 5 mg PO Q4H PRN ondansetron 4 mg tablet,disintegrating 4 mg PO DAILY PRN (Reason: nausea and vomiting) roflumilast 500 mcg tablet 500 mcg PO DAILY Patient Comments: TAKE 1/2 A PILL FOR 2 WEEKS THEN 1 PILL DAILY. cyclosporine [Restasis] 0.05 % dropperette 1 drp ophthalmic (eye) BID Patient Comments: PT TAKES 3 DROPS TWICE A DAY Santyl 250 unit/gram ointment 1 applic topical DAILY furosemide [Lasix] 20 mg tablet 20 mg PO DAILY guaifenesin [Mucinex] 600 mg tablet extended release 12hr 1,200 mg PO BID Held prednisone 10 mg tablet 10 mg PO DAILY Hold Instructions: until taper completed Discontinued metoprolol tartrate 25 mg Tablet 12.5 mg PO BID Referrals / Follow Up: Mei Cummins MD [Primary Care Provider] - In 1 Week Disposition Disposition (needs filled in before D/C Order can be placed): Home, Self Care Charges/Coding Visit Charges Inpatient E&M: 24608 Disch Hosp >30min 05/24/24 1427 Cosigner Signature (if applicable): CC: Dr. Malu Steen DO; Dr. Mei Cummins MD~ Signed [facility]03-25-2025 NoteW[facility]oster [facility] Progress note Author Mei [facility] Note Date/Time May 23, 2024 10: 59am [facility] Medical Records Department [address] [place] [address] Progress Note - Hospitalist 05/23/24 1051 MR#: [id number] Acct: [id number] Name: OSWALDO CORLEY Rep #:[id number] : 1940 83 From: Mei Cortes DO PCP: Dr. Mei Cummins MD Status:AD M IN Location: [place] [address] Reason for Visit Reason for Visit: Diagnoses Acidosis, unspecified (05/22/24) Chronic obstructive pulmonary disease with (acute) exacerbation (05/22/24) Chronic respiratory failure with hypoxia (05/22/24) Chronic respiratory failure with hypercapnia (05/22/24) Subjective Subjective Patient was seen and examined today, he is currently on 3 L at rest and appears to be comfortable. I have reviewed his chart, I have decided to change him overto oral antibiotics for suspected pneumonia-I am not absolutely sure the patienthas pneumonia, he states that the sputum that he brings up is not any different than what it is normally, he denies any chills or fever at home. Patient's oxygen setting at home is 4 L at rest and 7 L ambulating. Objective Data Objective Data Vital Signs: Vital Signs Temp Pulse Resp BP Pulse Ox O2 Del Method O2 Flow Rate 97.4 F L 88 18 140/76 H 99 Nasal Cannula 3 05/23/24 05:30 05/23/24 08:44 05/23/24 07:19 05/23/24 08:44 05/23/24 07:19 05/23/24 07:19 05/23/24 10:31 Oxygen Flow Rate (L/min) 3 Oxygen Delivery Method Nasal Cannula Weight: 76.7 kg Body Mass Index (BMI) 22.9 Intake & Output: Intake and Output for Last 24 Hours 05/21/24 05/22/24 05/23/24 23:59 23:59 23:59 Intake Total 425 / 425 50 / 50 Output Total 300 / 300 150 / 150 Balance 125 / 125 -100 / -100 Lab / Micro Data 05/23/24 04:26 05/23/24 04:26 Labs: Laboratory Results - last 24 hr 05/22/24 12:38: WBC 13.5 H, RBC 3.73 L, Hgb 10.2 L, Hct 33.4 L, MCV 89.5, MCH 27.3, MCHC 30.5 L, RDW Std Deviation 54.5 H, RDW Coeff of Estelita 16.5 H, Plt Count 197, MPV 8.9, Immature Gran % (Auto) 0.600, Neut % (Auto) 95.5 H, Lymph % (Auto)1.3 L, Posey % (Auto) 2.4, Eos % (Auto) 0.1, Baso % (Auto) 0.1, Absolute Neuts (auto) 12.9 H, Absolute Lymphs (auto) 0.18 L, Nucleated RBC % 0, Sodium 140, Potassium 4.9, Chloride 102, Carbon Dioxide 26.4, Anion Gap 11, BUN 16, Creatinine 0.75, Estim Creat Clear Calc 78.56, Est GFR (MDRD) Non-Af 91, BUN/Creatinine Ratio 21.8 H, Glucose 180 H, Lactic Acid 2.7 H*, Calcium 9.2, Total Bilirubin 0.50, AST 22, ALT 12, Alkaline Phosphatase 82, NT pro BNP II 741, Total Protein 6.0, Albumin 3.4, Globulin 2.7, Albumin/Globulin Ratio 1.3, Procalcitonin 0.49 H 05/22/24 17:00: Lactic Acid 5.0 H* 05/22/24 21:40: Lactic Acid 4.6 H* 05/23/24 04:26: WBC 8.6, RBC 3.62 L, Hgb 9.9 L, Hct 32.5 L, MCV 89.8, MCH 27.3, MCHC 30.5 L, RDW Std Deviation 53.4 H, RDW Coeff of Estelita 16.3 H, Plt Count 219, MPV 9.1, Sodium 140, Potassium 4.2, Chloride 105, Carbon Dioxide 25.9, Anion Gap10, BUN 15, Creatinine 0.61 L, Estim Creat Clear Calc 78.56, Est GFR (MDRD) Non-Af 97, BUN/Creatinine Ratio 24.8 H, Glucose 165 H, Calcium 9.2 Micro: Microbiology 05/23/24 03:00 Urine, Clean Catch Legionella Antigen - Final 05/23/24 03:00 Urine, Clean Catch Streptococcus pneumoniae Antigen (M - Final 05/22/24 19:30 Mucosa - Nasopharyngeal Respiratory Panel (PCR) - Final 05/22/24 12:25 Mucosa - Nose SARS-CoV-2, Influenza & RSV (PCR) - Final ABG Data ABG results: ABG 05/22/24 13:09 Specimen Type MARTIN VBG pH 7.38 VBG pO2 25 VBG HCO3 32 H VBG Total CO2 34 H VBG O2 Sat (Calc) 43 L VBG Base Excess 7 H POC Mix VBG pCO2 Pt Tmp 54.3 H O2 Delivery Device Nasal Can Liter Flow 5.0 Radiography Diagnostic Testing: Radiology Impression Chest X-Ray 05/22/24 13:30 IMPRESSION: Prior sternotomy again noted. Persistent left upper and lower lung areas increased density, most probably representing scarring, not clearly changed. Areas of lesser changes are seen of the right, with marked interval improvement in the right lower lung airspace disease compared with the study of 02/19/2024. No new or worsened pneumonic process is seen. Probable small left pleural effusion. No definite right pleural effusion is seen. No pneumothorax is noted. The cardiomediastinal silhouette is stable, without evidence of cardiomegaly. Reading Location: [address] Chest CTA 05/22/24 13:50 IMPRESSION: 1. Although predominantly ground-glass opacities, extensive changes are seen in the right lower lobe, concerning for inflammation/infection. 2. Progression of areas of left lower lobe and left upper lobe scarring, also again seen with left lower lobe pleural-based loculated air collection. 3. No evidence of pulmonary embolism. Reading Location: [address] Physical Exam Const alert, oriented x3, no apparent distress, average body habitus and healthy appearing General Appearance: cooperative, well kempt and well developed Orientation / Consciousness: awake, oriented to person, oriented to place and oriented to time HEENT normocephalic, head/scalp atraumatic and moist oral mucous membranes Eyes PERRL, EOMs intact bilaterally and conjunctivae normal Neck supple, no JVD, thyroid normal and no carotid bruits General: trachea midline Resp normal respiratory effort Resp Narrative: Breath sounds are diminished bilaterally, I did not detect any rales rhonchi or wheezes. Auscultation: Negative for rales, rhonchi or wheezes Cardio regular rate, regular rhythm, no murmurs, no rub and no gallops GI normal to inspection, nondistended, normoactive bowel sounds, soft to palpation,non-tender and non-distended Extremity no clubbing, cyanosis or edema Skin no rashes or lesions noted General Skin Exam: no breakdown Neuro oriented x3, CN's II-XII intact bilaterally, moves all extremities, no focal motor deficits and no sensory deficits noted Sensorium / Orientation: awake and alert Speech: speech normal Psych affect normal Assessment & Plan Assessment/Plan (1) Acute exacerbation of chronic obstructive pulmonary disease: PLAN: Plan 1. Acute exacerbation of chronic obstructive pulmonary disease-patient will remain on aerosol treatments and IV methylprednisolone, pulse ox will be monitored #2 chronic hypoxic respiratory failure-again patient is on 4 L at rest at home and 7 L when ambulating at home. Pulse ox will be monitored here #3 possible atypical pneumonia-patient's CT of the chest showed groundglass opacities in the lung along with left lower lobe and left upper lung scarring, there is no evidence of pulmonary embolism, I have decided to change the patientto oral Levaquin and stop his IV antibiotics at this time #4 coronary artery disease-this appears to be stable at this time #5 use of chronic anticoagulant secondary to past history of PE-patient is on Eliquis Total clinical time spent by myself addressing the patient's medical issues, reviewing all of his data, and collaborating with patient's care team: 35 minutes Charges/Coding Visit Charges Inpatient E&M: 07568 Subs Hosp L2 05/23/24 1059 <Electronically signed by Mei Cortes DO> Cosigner Signature (if applicable): CC: ~ Signed [facility] Work Phone: [phone] 379-113003-24-2025 Progress note [facility] Medical Records Department [address] [place] [address] Progress Note - Hospitalist 05/23/24 1051 MR#: [id number] Acct: [id number] Name: OSWALDO CORLEY Rep #:[id number] : 1940 83 From: Mei Cortes DO PCP: Dr. Mei Cummins MD Status:AD M IN Location: [place] [address] Reason for Visit Reason for Visit: Diagnoses Acidosis, unspecified (05/22/24) Chronic obstructive pulmonary disease with (acute) exacerbation (05/22/24) Chronic respiratory failure with hypoxia (05/22/24) Chronic respiratory failure with hypercapnia (05/22/24) Subjective Subjective Patient was seen and examined today, he is currently on 3 L at rest and appears to be comfortable. I have reviewed his chart, I have decided to change him overto oral antibiotics for suspected pneumonia-I am not absolutely sure the patienthas pneumonia, he states that the sputum that he brings up is not any different than what it is normally, he denies any chills or fever at home. Patient's oxygen setting at home is 4 L at rest and 7 L ambulating. Objective Data Objective Data Vital Signs: Vital Signs Temp Pulse Resp BP Pulse Ox O2 Del Method O2 Flow Rate 97.4 F L 88 18 140/76 H 99 Nasal Cannula 3 05/23/24 05:30 05/23/24 08:44 05/23/24 07:19 05/23/24 08:44 05/23/24 07:19 05/23/24 07:19 05/23/24 10:31 Oxygen Flow Rate (L/min) 3 Oxygen Delivery Method Nasal Cannula Weight: 76.7 kg Body Mass Index (BMI) 22.9 Intake & Output: Intake and Output for Last 24 Hours 05/21/24 05/22/24 05/23/24 23:59 23:59 23:59 Intake Total 425 / 425 50 / 50 Output Total 300 / 300 150 / 150 Balance 125 / 125 -100 / -100 Lab / Micro Data 05/23/24 04:26 05/23/24 04:26 Labs: Laboratory Results - last 24 hr 05/22/24 12:38: WBC 13.5 H, RBC 3.73 L, Hgb 10.2 L, Hct 33.4 L, MCV 89.5, MCH 27.3, MCHC 30.5 L, RDW Std Deviation 54.5 H, RDW Coeff of Estelita 16.5 H, Plt Count 197, MPV 8.9, Immature Gran % (Auto) 0.600, Neut % (Auto) 95.5 H, Lymph % (Auto)1.3 L, Posey % (Auto) 2.4, Eos % (Auto) 0.1, Baso % (Auto) 0.1, Absolute Neuts (auto) 12.9 H, Absolute Lymphs (auto) 0.18 L, Nucleated RBC % 0, Sodium 140, Potassium 4.9, Chloride 102, Carbon Dioxide 26.4, Anion Gap 11, BUN 16, Creatinine 0.75, Estim Creat ClearCalc 78.56, Est GFR (MDRD) Non-Af 91, BUN/Creatinine Ratio 21.8 H, Glucose 180 H, Lactic Acid 2.7 H*, Calcium 9.2, Total Bilirubin 0.50, AST 22, ALT 12, Alkaline Phosphatase 82, NT pro BNP II 741, Total Protein 6.0, Albumin 3.4, Globulin 2.7, Albumin/Globulin Ratio 1.3, Procalcitonin 0.49 H 05/22/24 17:00: Lactic Acid 5.0 H* 05/22/24 21:40: Lactic Acid 4.6 H* 05/23/24 04:26: WBC 8.6, RBC 3.62 L, Hgb 9.9 L, Hct 32.5 L, MCV 89.8, MCH 27.3, MCHC 30.5 L, RDW Std Deviation 53.4 H, RDW Coeff of Estelita 16.3 H, Plt Count 219, MPV 9.1, Sodium 140, Potassium 4.2, Chloride 105, Carbon Dioxide 25.9, Anion Gap10, BUN 15, Creatinine 0.61 L, Estim Creat Clear Calc 78.56,Est GFR (MDRD) Non-Af 97, BUN/Creatinine Ratio 24.8 H, Glucose 165 H, Calcium 9.2 Micro: Microbiology 05/23/24 03:00 Urine, Clean Catch Legionella Antigen - Final 05/23/24 03:00 Urine, Clean Catch Streptococcus pneumoniae Antigen (M - Final 05/22/24 19:30 Mucosa - Nasopharyngeal Respiratory Panel (PCR) - Final 05/22/24 12:25 Mucosa - Nose SARS-CoV-2, Influenza & RSV (PCR) - Final ABG Data ABG results: ABG 05/22/24 13:09 Specimen Type MARTIN VBG pH 7.38 VBG pO2 25 VBG HCO3 32 H VBG Total CO2 34 H VBG O2 Sat (Calc) 43 L VBG Base Excess 7 H POC Mix VBG pCO2 Pt Tmp 54.3 H O2 Delivery Device Nasal Can Liter Flow 5.0 Radiography Diagnostic Testing: Radiology Impression Chest X-Ray 05/22/24 13:30 IMPRESSION: Prior sternotomy again noted. Persistent left upper and lower lung areas increased density, most probably representing scarring, not clearly changed. Areas of lesser changes are seen of the right, with marked interval improvement in the right lower lung airspace disease compared with the study of 02/19/2024. No new or worsened pneumonic process is seen. Probable small left pleural effusion. No definite right pleural effusion is seen. No pneumothorax is noted. The cardiomediastinal silhouette is stable, without evidence of cardiomegaly. Reading Location: [address] Chest CTA 05/22/24 13:50 IMPRESSION: 1. Although predominantly ground-glass opacities, extensive changes are seen in the right lower lobe, concerning for inflammation/infection. 2. Progression of areas of left lower lobe and left upper lobe scarring, also again seen with left lower lobe pleural-based loculated air collection. 3. No evidence of pulmonary embolism. Reading Location: [address] Physical Exam Const alert, oriented x3, no apparent distress, average body habitus and healthy appearing General Appearance: cooperative, well kempt and well developed Orientation / Consciousness: awake, oriented to person, oriented to place and oriented to time HEENT normocephalic, head/scalp atraumatic and moist oral mucous membranes Eyes PERRL, EOMs intact bilaterally and conjunctivae normal Neck supple, no JVD, thyroid normal and no carotid bruits General: trachea midline Resp normal respiratory effort Resp Narrative: Breath sounds are diminished bilaterally, I did not detect any rales rhonchi or wheezes. Auscultation: Negative for rales, rhonchi or wheezes Cardio regular rate, regular rhythm, no murmurs, no rub and no gallops GI normal to inspection, nondistended, normoactive bowel sounds, soft to palpation,non-tender and non-distended Extremity no clubbing, cyanosis or edema Skin no rashes or lesions noted General Skin Exam: no breakdown Neuro oriented x3, CN's II-XII intact bilaterally, moves all extremities, no focal motor deficits and no sensory deficits noted Sensorium / Orientation: awake and alert Speech: speech normal Psych affect normal Assessment & Plan Assessment/Plan (1) Acute exacerbation of chronic obstructive pulmonary disease: PLAN: Plan 1. Acute exacerbation of chronic obstructive pulmonary disease-patient will remain on aerosol treatments and IV methylprednisolone, pulse ox will be monitored #2 chronic hypoxic respiratory failure-again patient is on 4 L at rest at home and 7 L when ambulating at home. Pulse ox will be monitored here #3 possible atypical pneumonia-patient's CT of the chest showed groundglass opacities in the lung along with left lower lobe and left upper lung scarring, there is no evidence of pulmonary embolism, I have decided to change the patientto oral Levaquin and stop his IV antibiotics at this time #4 coronary artery disease-this appears to be stable at this time #5 use of chronic anticoagulant secondary to past history of PE-patient is on Eliquis Total clinical time spent by myself addressing the patient's medical issues, reviewing all of his data, and collaborating with patient's care team: 35 minutes Charges/Coding Visit Charges Inpatient E&M: 15675 Subs Hosp L2 05/23/24 1059 Cosigner Signature (if applicable): CC: ~ Signed [facility]03-23-2025 History and physical note Author Jacob Suazo [facility] Note Date/Time May 22, 2024 6:1 0pm [facility] Medical Records Department [address] [place] [address] H&P Exam - Hospitalist 05/22/24 1514 MR#: [id number] Acct: [id number] Name: OSWALDO CORLEY Rep #:[id number] : 1940 83 From: Jacob womack DO PCP: Dr. Mei Cummins MD Status:AD M IN [id number] HPI - General General Date of Admission: 05/22/24 Date of Service: 05/22/24 Chief Complaint: Worsening shortness of breath HPI Narrative OSWALDO CORLEY, is a 83 M who presented to [facility] ED on 05/22/2024 with worsening shortness of breath. Patient has history of COPD with chronic respiratory failure on 4 to 5 L nasal cannula at baseline. Was last hospitalized here in January for a COPD exacerbation with suspected pneumonia. He recovered well during that hospitalization and was discharged home on hospital day 4. Patient states today that he has had increasing shortness of breath since Thursday. He was able to work outside on without issue. Denies any recent sick contacts that he is aware of. Today he had significant worsening shortness of breath to the point where he could only walk a few steps without getting very dyspneic. In the ED he was breathing 40-45 times per minute initially. Lactate was 2.7. He was mildly hypoxic to the mid 80s on 4 Lnasal cannula. He was given a breathing treatment and dose of steroids and his work of breathing did moderately improve at that time. CTA chest showed no PE, did show bibasilar groundglass opacities that were new in comparison to last CT chest that was done in September. Patient also has history of left lung cancer with resection and this area of the CT scan was the same, and chronic scarring changes were also noted. COVID/flu/RSV negative. Given concern for COPD exacerbation and pneumonia, hospitalist was contacted for admission. I saw the patient at bedside in the ED, was present. Patient was sitting back in bed and had mild increased work of breathing noted with pursed lips, butotherwise was conversing normally and in no acute distress. He had good skin color and appeared well-hydrated. noted that he does not appear nearly as sick as he has on previous admissions. Patient reports having a runny nose overthe past week or so. He denies any fevers or chills. Denies any chest pain or lower extremity swelling. No other acute concerns at this time. [facility] Medical History COPD exacerbation Angina at rest Pulmonary embolus COVID Fecal occult blood test positive Abnormal chest CT COPD with acute exacerbation Squamous cell carcinoma of left lung Lung mass Depression Myocardial infarct Coronary artery disease Pulmonary neoplasm Wears glasses Wears dentures Cancer Anxiety Abrasion History of steroid therapy Prostate disease High cholesterol Injury of back Syncope History of weight loss Former smoker COPD (chronic obstructive pulmonary disease) On home oxygen therapy Shortness of breath on exertion Chronic cough History of stress test Cardiology follow-up encounter Chest pain No pertinent family history 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 Nocturnal hypoxemia Chronic hypoxemic respiratory failure Bronchiectasis Prostate CA CAD (coronary artery disease) HLD (hyperlipidemia) Benign essential HTN Home Medications ?Medication ?Instructions ?Recorded ?Last Taken ?Type nitroglycerin 0.4 mg sublingual 0.4 mg sublingual Q5M PRN Chest 12/29/14 1 Week Ago History tablet Pain ~07/02/20 fluticasone propionate 230 2 puff inhalation BID breat nicho 08/07/22 05/22/24 History mcg-salmeterol 21 mcg/actuation HFA inhaler (Advair HFA) atorvastatin 40 mg tablet 40 mg PO QHS cholesterol 05/21/24 History duloxetine 30 mg capsule,delayed 30 mg PO QPM DEPRESSI ON 03/25/23 05/21/24 History release tamsulosin 0.4 mg capsule 0.4 mg PO QPM BLADDER/ PROST ATE 03/25/23 05/21/24 History tiotropium bromide 2.5 2 puff inhalation DAILY copd 03/25/23 10/05/23 History mcg/actuation mist for inhalation (Spiriva Respimat) ezetimibe 10 mg tablet 10 mg PO DAILY cholesterol 0 09/28/23 05/21/24 History apixaban 5 mg tablet (Eliquis) 5 mg PO BID blood thinn er 10/05/23 05/22/24 History albuterol sulfate 90 mcg/actuation 2 puff inhalation Q 4H PRN wheezing 02/19/24 Unknown History aerosol inhaler aspirin 81 mg tablet,delayed 81 mg PO DAILY heart 01/3105/21/24 History release (Enteric Coated Aspirin) lorazepam 1 mg tablet 1 mg PO TID anxiety 02/19/24 05/22/24 History metoprolol tartrate 25 mg tablet 12.5 mg PO BID heart 02/20/24 05/22/24 History oxycodone 5 mg tablet 5 mg PO Q4H PRN chronic pain 02/21/24 05/22/24 History ondansetron 4 mg disintegrating 4 mg PO DAILY PRN naus ea and 03/30/24 Unknown History tablet vomiting roflumilast 500 mcg tablet 500 mcg PO DAILY 03/30/24 0 05/21/24 History collagenase clostridium histo. 250 1 applic topical DA SHELIA 05/22/24 05/21/24 History unit/gram topical ointment (Santyl) cyclosporine 0.05 % eye drops in a 1 drp ophthalmic (e ye) BID 05/22/24 05/21/24 History dropperette (Restasis) fluconazole 100 mg tablet 100 mg PO DAILY 05/22/24 History furosemide 20 mg tablet (Lasix) 20 mg PO DAILY weight gain 05/22/24 05/21/24 History guaifenesin 600 mg tablet, 1,200 mg PO BID cough 05/2205/22/24 History extended release 12 hr (Mucinex) prednisone 10 mg tablet 10 mg PO DAILY 05/22/2405/01 History Allergy/AdvReac Type Severity Reaction Status Date / Time isosorbide (From Imdur) Allergy Other-patient Verified 05/22/24 12:03 blacks out Family History Mother Cancer Father Heart disease COPD (chronic obstructive pulmonary disease) Surgical History Hx of CABG Hx of heart artery stent Hx of transurethral resection of prostate Hx of pneumonectomy Hx of CABG No pertinent past surgical history Social History household members: spouse Smoking Status: Former smoker Tobacco: How many years used: 45 Electronic Cigarette Use: not used how long ago did patient quit smokin, second hand exposure: Yes alcohol intake: never substance use type: does not use ROS Constitutional Constitutional: Denies chills, fatigue, fever(s) or weakness Eyes Eyes: Denies change in vision ENT HEENT: Reports nasal congestion; Denies nasal discharge, post nasal drip or sorethroat Cardiovascular Cardiovascular: Denies chest pain Respiratory/Chest Respiratory/Chest: Reports cough, dyspnea, shortness of breath at rest, shortness of breath with exertion and wheezing; Denies productive cough Gastrointestinal Gastrointestinal: Denies abdominal pain Genitourinary Genitourinary: Denies dysuria Musculoskeletal Musculoskeletal: Denies arthralgias or myalgias Neurologic Neurologic: Denies dizziness or headache(s) Vital Signs Vital Signs Vital Signs: 05/22/24 12:03 05/22/24 12:14 05/22/24 12:50 Temperature 97.4 F L Temperature Source Temporal Pulse Rate 106 H 80 Respiratory Rate 38 H 22 H Respiratory Effort Normal Short of Breath Labored Respiratory Depth Normal Respiratory Pattern Normal Tachypnea Blood Pressure 117/59 L Blood Pressure Mean 78 Pulse Ox 86 Oxygen Delivery Method Nasal Cannula Nasal Cannula Oxygen Flow Rate (L/min) 5 5 05/22/24 13:01 05/22/24 13:18 05/22/24 14:00 Temperature Temperature Source Pulse Rate 79 96 Respiratory Rate 18 28 H Respiratory Effort Respiratory Depth Respiratory Pattern Blood Pressure 122/56 H 146/77 H Blood Pressure Mean 78 100 Pulse Ox 98 100 100 Oxygen Delivery Method Nasal Cannula Nasal Cannula Nasal Cannula Oxygen Flow Rate (L/min) 5 4 05/22/24 15:00 Temperature Temperature Source Pulse Rate 92 Respiratory Rate 26 H Respiratory Effort Respiratory Depth Respiratory Pattern Blood Pressure 111/63 Blood Pressure Mean 79 Pulse Ox 100 Oxygen Delivery Method Nasal Cannula Oxygen Flow Rate (L/min) Weight Weight: 76.7 kg Body Mass Index (BMI) 22.9 Physical Exam Const alert, oriented x3, no apparent distress and average body habitus Constitutional Narrative: Pleasant elderly male, sitting back comfortably in bed, mild increased work of breathing with pursed lips noted but otherwise good skin color and turgor, and patient conversing normally with no conversational dyspnea. General Appearance: cooperative and comfortable HEENT normocephalic, head/scalp atraumatic, hearing grossly normal bilaterally, nasal mucous membranes and turbinates normal and moist oral mucous membranes Eyes PERRL, EOMs intact bilaterally and conjunctivae normal Neck full ROM Chest inspection of chest normal Resp no use of accessory muscles Resp Narrative: Mild increased work of breathing with pursed lip breathing noted on 5 L nasal cannula. Moderately diminished breath sounds bilaterally throughout but no wheezing or crackles noted. Cardio regular rate, regular rhythm, no murmurs and peripheral pulses 2+ throughout GI normal to inspection, nondistended, normoactive bowel sounds, soft to palpation,non-tender and non-distended Back/Spine normal ROM Extremity normal to inspection, full ROM and no pedal edema Skin no rashes or lesions noted Neuro moves all extremities and no focal motor deficits Speech: speech normal Motor Exam: strength 5/5 throughout Psych mental status grossly normal Results Lab / Micro Data 05/22/24 12:38 05/22/24 12:38 Labs: Laboratory Results - last 24 hr 05/22/24 12:38: WBC 13.5 H, RBC 3.73 L, Hgb 10.2 L, Hct 33.4 L, MCV 89.5, MCH 27.3, MCHC 30.5 L, RDW Std Deviation 54.5 H, RDW Coeff of Estelita 16.5 H, Plt Count 197, MPV 8.9, Immature Gran % (Auto) 0.600, Neut % (Auto) 95.5 H, Lymph % (Auto)1.3 L, Posey % (Auto) 2.4, Eos % (Auto) 0.1, Baso % (Auto) 0.1, Absolute Neuts (auto) 12.9 H, Absolute Lymphs (auto) 0.18 L, Nucleated RBC % 0, Sodium 140, Potassium 4.9, Chloride 102, Carbon Dioxide 26.4, Anion Gap 11, BUN 16, Creatinine 0.75, Estim Creat Clear Calc 78.56, Est GFR (MDRD) Non-Af 91, BUN/Creatinine Ratio 21.8 H, Glucose 180 H, Lactic Acid 2.7 H*, Calcium 9.2, Total Bilirubin 0.50, AST 22, ALT 12, Alkaline Phosphatase 82, Total Protein 6.0, Albumin 3.4, Globulin 2.7, Albumin/Globulin Ratio 1.3 Micro: Microbiology 05/22/24 12:25 Mucosa - Nose SARS-CoV-2, Influenza & RSV (PCR) - Final Imaging Radiology Impression Chest X-Ray 05/22/24 13:30 IMPRESSION: Prior sternotomy again noted. Persistent left upper and lower lung areas increased density, most probably representing scarring, not clearly changed. Areas of lesser changes are seen of the right, with marked interval improvement in the right lower lung airspace disease compared with the study of 02/19/2024. No new or worsened pneumonic process is seen. Probable small left pleural effusion. No definite right pleural effusion is seen. No pneumothorax is noted. The cardiomediastinal silhouette is stable, without evidence of cardiomegaly. Reading Location: [address] Chest CTA 05/22/24 13:50 IMPRESSION: 1. Although predominantly ground-glass opacities, extensive changes are seen in the right lower lobe, concerning for inflammation/infection. 2. Progression of areas of left lower lobe and left upper lobe scarring, also again seen with left lower lobe pleural-based loculated air collection. 3. No evidence of pulmonary embolism. Reading Location: [address] Assessment & Plan Assessment/Plan (1) Acute exacerbation of chronic obstructive pulmonary disease: (2) Chronic respiratory failure with hypoxia and hypercapnia: (3) Acidosis, lactic: PLAN: Plan Patient is an 83-year-old male who presented [facility] ED on 05/22/2024 with worsening shortness of breath. 1. COPD exacerbation with concern for community-acquired pneumonia in setting of chronic hypoxic respiratory failure ? Admit under inpatient status to PCU. On home 4 to 5 L nasal cannula at baseline. Mildly hypoxic on home level of oxygen on admit but significant dyspnea both at rest and with exertion noted. CTA chest showed no PE but did show worse bilateral groundglass opacities in comparison to prior chest imaging concerning for viral versus bacterial pneumonia. COVID/flu/RSV negative. Respiratory PCR panel, sputum culture, urine antigens ordered. Procalcitonin ordered. Patient notably has been on prednisone 10 mg daily for the past few years. Will treat with IV steroids, scheduled DuoNebs and IV antibiotics for now. Wean supplemental oxygen as able. Continue other home inhalers. 2. Elevated lactic acid ? Lactate 2.7 on admit. Suspect secondary to hypoxia in setting of COPD exacerbation. Follow-up repeat lactic acid this evening. Chronic medical conditions: ? History of CAD with CABG and stenting, hypertension, hyperlipidemia: Normotensive on admit. Continue home aspirin, statin, Zetia, Lasix, Lopressor. ? Normocytic anemia, history of GI bleed with ABLA: Hemoglobin 10.3 on admit, stable at baseline around 10. Had GI bleed back in September with hemoglobin dropped to below 7 requiring blood transfusion. 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 Continue home PPI. ? BPH with obstructive symptoms: Continue home Flomax. ? Anxiety/depression: Continue home duloxetine and Ativan as needed. ? 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 ? Chronic pain: Continue home oxycodone as needed. ? History of left-sided lung cancer s/p surgical resection DVT prophylaxis: Not indicated, on Eliquis CODE STATUS: DNR CCA, DNI Expected disposition: Home, 2 to 3 days Total clinical time spent by myself addressing the patient's medical issues, reviewing all the data, and collaborating with patient's care team: 55 minutes. Charges/Coding Visit Charges Inpatient E&M: 48726 Init Hosp L2 05/22/24 2640 <Electronically signed by Jacob Suazo DO> Cosigner Signature (if applicable): CC: Dr. Jacob Suazo DO; Dr. Mei Cummins MD~ Signed ADDENDUM by Dr. Jacob Suazo DO on 05/22/24 at 1810 Addendum Initial lactic acid 2.7, repeat lactic acid 5.0. Still suspect secondary to increased work of breathing with some hypoxia. Will continue to monitor lactic acid serially, no change in management at this time. 05/22/24 181<Electronically signed by Jacob Suazo DO> Cosigner Signature (if applicable): cc: Dr. Jacob Suazo DO; Dr. Mei Cummins MD ~* Signed [facility] Work Phone: 1(879) 811-752303-23-2025 History and physical note [facility] Medical Records Department [address] [place] [address] H&P Exam - Hospitalist 05/22/24 1514 MR#: [id number] Acct: [id number] Name: OSWALDO CORLEY Rep #:[id number] : 1940 83 From: Jacob womack DO PCP: Dr. Mei Cummins MD Status:AD M IN Location: [facility] [id number]- 1 HPI - General General Date of Admission: 05/22/24 Date of Service: 05/22/24 Chief Complaint: Worsening shortness of breath HPI Narrative OSWALDO CORLEY, is a 83 M who presented to [facility] ED on 05/22/2024 with worsening shortness of breath. Patient has history of COPD with chronic respiratory failure on 4 to 5 L nasal cannula at baseline. Was last hospitalized here in January for a COPD exacerbation with suspectedpneumonia. He recovered well during that hospitalization and was discharged home on hospital day 4.Patient states today that he has had increasing shortness of breath since Thursday. He was able to work outside on without issue. Denies any recent sick contacts that he is aware of. Today he had significant worsening shortness of breath to the point where he could only walk a few steps without getting very dyspneic. In the ED he was breathing 40-45 times per minute initially. Lactate was 2.7. He was mildly hypoxic to the mid 80s on 4 Lnasal cannula. He was given a breathing treatment and dose of steroids and his work of breathing did moderately improve at that time. CTA chest showed no PE, did show bibasilar groundglass opacities that were new in comparison to last CT chest that wasdone in September. Patient also has history of left lung cancer with resection and this area of the CTscan was the same, and chronic scarring changes were also noted. COVID/flu/RSV negative. Given concern for COPD exacerbation and pneumonia, hospitalist was contacted for admission. I saw the patient at bedside in the ED, was present. Patient was sitting back in bed and had mild increased work of breathing noted with pursed lips, butotherwise was conversing normally and in no acute distress. He had good skin color and appeared well-hydrated. noted that he does not appear nearly as sick as he has on previous admissions. Patient reports having a runny nose overthe past week or so. He denies any fevers or chills. Denies any chest pain or lower extremity swelling. Noother acute concerns at this time. [facility] Medical History COPD exacerbation Angina at rest Pulmonary embolus COVID Fecal occult blood test positive Abnormal chest CT COPD with acute exacerbation Squamous cell carcinoma of left lung Lung mass Depression Myocardial infarct Coronary artery disease Pulmonary neoplasm Wears glasses Wears dentures Cancer Anxiety Abrasion History of steroid therapy Prostate disease High cholesterol Injury of back Syncope History of weight loss Former smoker COPD (chronic obstructive pulmonary disease) On home oxygen therapy Shortness of breath on exertion Chronic cough History of stress test Cardiology follow-up encounter Chest pain No pertinent family history 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 Nocturnal hypoxemia Chronic hypoxemic respiratory failure Bronchiectasis Prostate CA CAD (coronary artery disease) HLD (hyperlipidemia) Benign essential HTN Home Medications ?Medication ?Instructions ?Recorded ?Last Taken ?Type nitroglycerin 0.4 mg sublingual 0.4 mg sublingual Q5M PRN Chest 12/29/14 1 Week Ago History tablet Pain ~07/02/20 fluticasone propionate 230 2 puff inhalation BID breat nicho 08/07/22 05/22/24 History mcg-salmeterol 21 mcg/actuation HFA inhaler (Advair HFA) atorvastatin 40 mg tablet 40 mg PO QHS cholesterol 05/21/24 History duloxetine 30 mg capsule,delayed 30 mg PO QPM DEPRESSI ON 03/25/23 05/21/24 History release tamsulosin 0.4 mg capsule 0.4 mg PO QPM BLADDER/ PROST ATE 03/25/23 05/21/24 History tiotropium bromide 2.5 2 puff inhalation DAILY copd 03/25/23 10/05/23 History mcg/actuation mist for inhalation (Spiriva Respimat) ezetimibe 10 mg tablet 10 mg PO DAILY cholesterol 0 09/28/23 05/21/24 History apixaban 5 mg tablet (Eliquis) 5 mg PO BID blood thinn er 10/05/23 05/22/24 History albuterol sulfate 90 mcg/actuation 2 puff inhalation Q 4H PRN wheezing 02/19/24 Unknown History aerosol inhaler aspirin 81 mg tablet,delayed 81 mg PO DAILY heart 01/3105/21/24 History release (Enteric Coated Aspirin) lorazepam 1 mg tablet 1 mg PO TID anxiety 02/19/24 05/22/24 History metoprolol tartrate 25 mg tablet 12.5 mg PO BID heart 02/20/24 05/22/24 History oxycodone 5 mg tablet 5 mg PO Q4H PRN chronic pain 02/21/24 05/22/24 History ondansetron 4 mg disintegrating 4 mg PO DAILY PRN naus ea and 03/30/24 Unknown History tablet vomiting roflumilast 500 mcg tablet 500 mcg PO DAILY 03/30/24 0 05/21/24 History collagenase clostridium histo. 250 1 applic topical DA SHELIA 05/22/24 05/21/24 History unit/gram topical ointment (Santyl) cyclosporine 0.05 % eye drops in a 1 drp ophthalmic (e ye) BID 05/22/24 05/21/24 History dropperette (Restasis) fluconazole 100 mg tablet 100 mg PO DAILY 05/22/24 History furosemide 20 mg tablet (Lasix) 20 mg PO DAILY weight gain 05/22/24 05/21/24 History guaifenesin 600 mg tablet, 1,200 mg PO BID cough 05/2205/22/24 History extended release 12 hr (Mucinex) prednisone 10 mg tablet 10 mg PO DAILY 05/22/2405/01 History Allergy/AdvReac Type Severity Reaction Status Date / Time isosorbide (From Imdur) Allergy Other-patient Verified 05/22/24 12:03 blacks out Family History Mother Cancer Father Heart disease COPD (chronic obstructive pulmonary disease) Surgical History Hx of CABG Hx of heart artery stent Hx of transurethral resection of prostate Hx of pneumonectomy Hx of CABG No pertinent past surgical history Social History household members: spouse Smoking Status: Former smoker Tobacco: How many years used: 45 Electronic Cigarette Use: not used how long ago did patient quit smokin, second hand exposure: Yes alcohol intake: never substance use type: does not use ROS Constitutional Constitutional: Denies chills, fatigue, fever(s) or weakness Eyes Eyes: Denies change in vision ENT HEENT: Reports nasal congestion; Denies nasal discharge, post nasal drip or sorethroat Cardiovascular Cardiovascular: Denies chest pain Respiratory/Chest Respiratory/Chest: Reports cough, dyspnea, shortness of breath at rest, shortness of breath with exertion and wheezing; Denies productive cough Gastrointestinal Gastrointestinal: Denies abdominal pain Genitourinary Genitourinary: Denies dysuria Musculoskeletal Musculoskeletal: Denies arthralgias or myalgias Neurologic Neurologic: Denies dizziness or headache(s) Vital Signs Vital Signs Vital Signs: 05/22/24 12:03 05/22/24 12:14 05/22/24 12:50 Temperature 97.4 F L Temperature Source Temporal Pulse Rate 106 H 80 Respiratory Rate 38 H 22 H Respiratory Effort Normal Short of Breath Labored Respiratory Depth Normal Respiratory Pattern Normal Tachypnea Blood Pressure 117/59 L Blood Pressure Mean 78 Pulse Ox 86 Oxygen Delivery Method Nasal Cannula Nasal Cannula Oxygen Flow Rate (L/min) 5 5 05/22/24 13:01 05/22/24 13:18 05/22/24 14:00 Temperature Temperature Source Pulse Rate 79 96 Respiratory Rate 18 28 H Respiratory Effort Respiratory Depth Respiratory Pattern Blood Pressure 122/56 H 146/77 H Blood Pressure Mean 78 100 Pulse Ox 98 100 100 Oxygen Delivery Method Nasal Cannula Nasal Cannula Nasal Cannula Oxygen Flow Rate (L/min) 5 4 05/22/24 15:00 Temperature Temperature Source Pulse Rate 92 Respiratory Rate 26 H Respiratory Effort Respiratory Depth Respiratory Pattern Blood Pressure 111/63 Blood Pressure Mean 79 Pulse Ox 100 Oxygen Delivery Method Nasal Cannula Oxygen Flow Rate (L/min) Weight Weight: 76.7 kg Body Mass Index (BMI) 22.9 Physical Exam Const alert, oriented x3, no apparent distress and average body habitus Constitutional Narrative: Pleasant elderly male, sitting back comfortably in bed, mild increased work of breathing with pursed lips noted but otherwise good skin color and turgor, and patient conversing normally with no conversational dyspnea. General Appearance: cooperative and comfortable HEENT normocephalic, head/scalp atraumatic, hearing grossly normal bilaterally, nasal mucous membranes and turbinates normal and moist oral mucous membranes Eyes PERRL, EOMs intact bilaterally and conjunctivae normal Neck full ROM Chest inspection of chest normal Resp no use of accessory muscles Resp Narrative: Mild increased work of breathing with pursed lip breathing noted on 5 L nasal cannula. Moderately diminished breath sounds bilaterally throughout but no wheezing or crackles noted. Cardio regular rate, regular rhythm, no murmurs and peripheral pulses 2+ throughout GI normal to inspection, nondistended, normoactive bowel sounds, soft to palpation,non-tender and non-distended Back/Spine normal ROM Extremity normal to inspection, full ROM and no pedal edema Skin no rashes or lesions noted Neuro moves all extremities and no focal motor deficits Speech: speech normal Motor Exam: strength 5/5 throughout Psych mental status grossly normal Results Lab / Micro Data 05/22/24 12:38 05/22/24 12:38 Labs: Laboratory Results - last 24 hr 05/22/24 12:38: WBC 13.5 H, RBC 3.73 L, Hgb 10.2 L, Hct 33.4 L, MCV 89.5, MCH 27.3, MCHC 30.5 L, RDW Std Deviation 54.5 H, RDW Coeff of Estelita 16.5 H, Plt Count 197, MPV 8.9, Immature Gran % (Auto) 0.600, Neut % (Auto) 95.5 H, Lymph % (Auto)1.3 L, Posey % (Auto) 2.4, Eos % (Auto) 0.1, Baso % (Auto) 0.1, Absolute Neuts (auto) 12.9 H, Absolute Lymphs (auto) 0.18 L, Nucleated RBC % 0, Sodium 140, Potassium 4.9, Chloride 102, Carbon Dioxide 26.4, Anion Gap 11, BUN 16, Creatinine 0.75, Estim Creat ClearCalc 78.56, Est GFR (MDRD) Non-Af 91, BUN/Creatinine Ratio 21.8 H, Glucose 180 H, Lactic Acid 2.7 H*, Calcium 9.2, Total Bilirubin 0.50, AST 22, ALT 12, Alkaline Phosphatase 82, Total Protein 6.0, Albumin 3.4, Globulin 2.7, Albumin/Globulin Ratio 1.3 Micro: Microbiology 05/22/24 12:25 Mucosa - Nose SARS-CoV-2, Influenza & RSV (PCR) - Final Imaging Radiology Impression Chest X-Ray 05/22/24 13:30 IMPRESSION: Prior sternotomy again noted. Persistent left upper and lower lung areas increased density, most probably representing scarring, not clearly changed. Areas of lesser changes are seen of the right, with marked interval improvement in the right lower lung airspace disease compared with the study of 02/19/2024. No new or worsened pneumonic process is seen. Probable small left pleural effusion. No definite right pleural effusion is seen. No pneumothorax is noted. The cardiomediastinal silhouette is stable, without evidence of cardiomegaly. Reading Location: [address] Chest CTA 05/22/24 13:50 IMPRESSION: 1. Although predominantly ground-glass opacities, extensive changes are seen in the right lower lobe, concerning for inflammation/infection. 2. Progression of areas of left lower lobe and left upper lobe scarring, also again seen with left lower lobe pleural-based loculated air collection. 3. No evidence of pulmonary embolism. Reading Location: [address] Assessment & Plan Assessment/Plan (1) Acute exacerbation of chronic obstructive pulmonary disease: (2) Chronic respiratory failure with hypoxia and hypercapnia: (3) Acidosis, lactic: PLAN: Plan Patient is an 83-year-old male who presented [facility] ED on 05/22/2024 with worsening shortness of breath. 1. COPD exacerbation with concern for community-acquired pneumonia in setting of chronic hypoxic respiratory failure ? Admit under inpatient status to PCU. On home 4 to 5 L nasal cannula at baseline. Mildly hypoxic on home level of oxygen on admit but significant dyspnea both at rest and with exertion noted. CTA chest showed no PE but did show worse bilateral groundglass opacities in comparison to prior chest imaging concerning for viral versus bacterial pneumonia. COVID/flu/RSV negative. Respiratory PCR panel,sputum culture, urine antigens ordered. Procalcitonin ordered. Patient notably has been on prednisone 10 mg daily for the past few years. Will treat with IV steroids, scheduled DuoNebs and IV antibiotics for now. Wean supplemental oxygen as able. Continue other home inhalers. 2. Elevated lactic acid ? Lactate 2.7 on admit. Suspect secondary to hypoxia in setting of COPD exacerbation. Follow-up repeat lactic acid this evening. Chronic medical conditions: ? History of CAD with CABG and stenting, hypertension, hyperlipidemia: Normotensive on admit. Continue home aspirin, statin, Zetia, Lasix, Lopressor. ? Normocytic anemia, history of GI bleed with ABLA: Hemoglobin 10.3 on admit, stable at baseline around 10. 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 Continue home PPI. ? BPH with obstructive symptoms: Continue home Flomax. ? Anxiety/depression: Continue home duloxetine and Ativan as needed. ? 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 ? Chronic pain: Continue home oxycodone as needed. ? History of left-sided lung cancer s/p surgical resection DVT prophylaxis: Not indicated, on Eliquis CODE STATUS: DNR CCA, DNI Expected disposition: Home, 2 to 3 days Total clinical time spent by myself addressing the patient's medical issues, reviewing all the data, and collaborating with patient's care team: 55 minutes. Charges/Coding Visit Charges Inpatient E&M: 77430 Init Hosp L2 05/22/24 2465 Cosigner Signature (if applicable): CC: Dr. Jacob Suazo DO; Dr. Mei Cummins MD~ Signed ADDENDUM by Dr. Jacob Suazo DO on 05/22/24 at 1810 Addendum Initial lactic acid 2.7, repeat lactic acid 5.0. Still suspect secondary to increased work of breathing with some hypoxia. Will continue to monitor lactic acid serially, no change in management at this time. 05/22/24 1810 Cosigner Signature (if applicable): cc: Dr. Jacob Suazo DO; Dr. Mei Cummins MD ~* Signed [facility]03-23-2025 Discharge summary Author Randy Londono [facility] Note Date/Time May 22, 2024 3:1 8pm [facility] Medical Records Department [address] [place] [address] Emergency Department Summary 05/22/24 MR#: [id number] Acct: [id number] Name: OSWALDO CORLEY Rep #:[id number] : 1940 83 From: Randy Londono MD PCP: Dr. Mei Cummins MD Status:RE G ER Location: ED HPI History of Present Illness Chief Complaint: Shortness of Breath Detail of Chief Complaint: Shortness of breath since Thursday Informant: patient and spouse/S.O. 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 He is seen by supervisory aide. He is presently on prednisone 10 mg. He apparently did work outside on . Symptoms started on Thursday. He does have a cough which is chronic. He does have colored sputum which is not normal. He has had no ill contacts. He has a chronic intermittent runny nose. He denies fever, chills night sweats. He doeshave remote history of DVT. He presently denies leg pain, swelling discoloration. Patient denies chest pain, pressure or tightness. He denies pain with breathing. He denies abdominal pain, nausea, vomiting or diarrhea. Patient does have history of COPD with chronic respiratory failure, coronary disease, lung cancer diagnosed several years ago, prostate cancer, hyperlipidemia, BPH and PAD. Prior similar symptoms: Yes Recent Illness/Hospitalization: No PFSH PFSH Medical History COPD exacerbation Angina at rest Pulmonary embolus COVID Fecal occult blood test positive Abnormal chest CT COPD with acute exacerbation Squamous cell carcinoma of left lung Lung mass Depression Myocardial infarct Coronary artery disease Pulmonary neoplasm Wears glasses Wears dentures Cancer Anxiety Abrasion History of steroid therapy Prostate disease High cholesterol Injury of back Syncope History of weight loss Former smoker COPD (chronic obstructive pulmonary disease) On home oxygen therapy Shortness of breath on exertion Chronic cough History of stress test Cardiology follow-up encounter Chest pain No pertinent family history 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 Nocturnal hypoxemia Chronic hypoxemic respiratory failure Bronchiectasis Prostate CA CAD (coronary artery disease) HLD (hyperlipidemia) Benign essential HTN Home Medications ?Medication ?Instructions ?Recorded ?Last Taken ?Type nitroglycerin 0.4 mg sublingual 0.4 mg sublingual Q5M PRN Chest 12/29/14 1 Week Ago History tablet Pain ~07/02/20 fluticasone propionate 230 2 puff inhalation BID breat nicho 08/07/22 05/22/24 History mcg-salmeterol 21 mcg/actuation HFA inhaler (Advair HFA) atorvastatin 40 mg tablet 40 mg PO QHS cholesterol 05/21/24 History duloxetine 30 mg capsule,delayed 30 mg PO QPM DEPRESSI ON 03/25/23 05/21/24 History release tamsulosin 0.4 mg capsule 0.4 mg PO QPM BLADDER/ PROST ATE 03/25/23 05/21/24 History tiotropium bromide 2.5 2 puff inhalation DAILY copd 03/25/23 10/05/23 History mcg/actuation mist for inhalation (Spiriva Respimat) ezetimibe 10 mg tablet 10 mg PO DAILY cholesterol 0 09/28/23 05/21/24 History apixaban 5 mg tablet (Eliquis) 5 mg PO BID blood thinn er 10/05/23 05/22/24 History albuterol sulfate 90 mcg/actuation 2 puff inhalation Q 4H PRN wheezing 02/19/24 Unknown History aerosol inhaler aspirin 81 mg tablet,delayed 81 mg PO DAILY heart 01/3105/21/24 History release (Enteric Coated Aspirin) lorazepam 1 mg tablet 1 mg PO TID anxiety 02/19/24 05/22/24 History metoprolol tartrate 25 mg tablet 12.5 mg PO BID heart 02/20/24 05/22/24 History oxycodone 5 mg tablet 5 mg PO Q4H PRN chronic pain 02/21/24 05/22/24 History ondansetron 4 mg disintegrating 4 mg PO DAILY PRN naus ea and 03/30/24 Unknown History tablet vomiting roflumilast 500 mcg tablet 500 mcg PO DAILY 03/30/24 0 05/21/24 History collagenase clostridium histo. 250 1 applic topical DA SHELIA 05/22/24 05/21/24 History unit/gram topical ointment (Santyl) cyclosporine 0.05 % eye drops in a 1 drp ophthalmic (e ye) BID 05/22/24 05/21/24 History dropperette (Restasis) fluconazole 100 mg tablet 100 mg PO DAILY 05/22/24 History furosemide 20 mg tablet (Lasix) 20 mg PO DAILY weight gain 05/22/24 05/21/24 History guaifenesin 600 mg tablet, 1,200 mg PO BID cough 05/2205/22/24 History extended release 12 hr (Mucinex) prednisone 10 mg tablet 10 mg PO DAILY 05/22/2405/01 History Allergy/AdvReac Type Severity Reaction Status Date / Time isosorbide (From Imdur) Allergy Other-patient Verified 05/22/24 12:03 blacks out Family History Mother Cancer Father Heart disease COPD (chronic obstructive pulmonary disease) Surgical History Hx of CABG Hx of heart artery stent Hx of transurethral resection of prostate Hx of pneumonectomy Hx of CABG No pertinent past surgical history Social History household members: spouse Smoking Status: Former smoker Tobacco: How many years used: 45 Electronic Cigarette Use: not used how long ago did patient quit smokin, second hand exposure: Yes alcohol intake: never substance use type: does not use ROS ROS ED Constitutional Constitutional ED: Denies chills, fever(s), subjective, sweats or weight loss Eyes Eyes: Denies blurry vision, change in vision or diplopia ENT ENT ED: Reports rhinorrhea; Denies ear pain or sore throat Cardiovascular Cardiovascular: Denies chest pain, orthopnea, palpitations, paroxysmal nocturnaldyspnea or racing heartbeat Respiratory/Chest Respiratory/Chest: Reports cough, dyspnea, dyspnea on exertion and sputum; Denies orthopnea or paroxysmal nocturnal dyspnea Gastrointestinal Gastrointestinal: Denies abdominal pain, diarrhea, nausea or vomiting Genitourinary Genitourinary ED: Denies dysuria, hematuria or urinary frequency Musculoskeletal Musculoskeletal: Denies arthralgias or myalgias Integumentary Reports other Details: Patient has multiple bruises. He states this is not new.; Denies rash Neurologic Neurologic: Reports weakness Hematologic/Lymphatic Hematologic/Lymphatic: Reports systems reviewed and no addt'l complaints, exceptas documented EXAM Physical Exam Const Vital Signs: 05/22/24 12:03 05/22/24 12:14 05/22/24 12:50 Temperature 97.4 F L Temperature Source Temporal Pulse Rate 106 H 80 Respiratory Rate 38 H 22 H Respiratory Effort Normal Short of Breath Labored Respiratory Depth Normal Respiratory Pattern Normal Tachypnea Blood Pressure 117/59 L Blood Pressure Mean 78 Pulse Ox 86 Oxygen Delivery Method Nasal Cannula Nasal Cannula Oxygen Flow Rate (L/min) 5 5 05/22/24 13:01 05/22/24 13:18 05/22/24 14:00 Temperature Temperature Source Pulse Rate 79 96 Respiratory Rate 18 28 H Respiratory Effort Respiratory Depth Respiratory Pattern Blood Pressure 122/56 H 146/77 H Blood Pressure Mean 78 100 Pulse Ox 98 100 100 Oxygen Delivery Method Nasal Cannula Nasal Cannula Nasal Cannula Oxygen Flow Rate (L/min) 5 4 05/22/24 15:00 Temperature Temperature Source Pulse Rate 92 Respiratory Rate 26 H Respiratory Effort Respiratory Depth Respiratory Pattern Blood Pressure 111/63 Blood Pressure Mean 79 Pulse Ox 100 Oxygen Delivery Method Nasal Cannula Oxygen Flow Rate (L/min) Positive well developed Constitutional Narrative: Patient is slightly cachectic. Presume he has consumptive COPD. He is tachycardic and tachypneic. He is breathing between 40 to 44 breaths/min. He is breathing with Edmondson lips and audible wheezing noted even before entering the room. General Appearance ED: well developed; Negative for cyanotic, diaphoretic, NAD or pallor HEENT Reports dry mucous membranes HEENT Narrative: Head is atraumatic normocephalic. Ears normal. Nares patent. Posterior pharynx unremarkable. Mouth ED: Yes dry mucous membranes Mouth: dry mucous membranes Eyes PERRL and EOMs intact bilaterally General Eye ED: Negative for pale conjunctiva or scleral icterus Neck no lymphadenopathy, supple and no JVD Chest Wall inspection of chest normal and palpation of chest normal Resp No normal respiratory effort and No clear to auscultation bilaterally Resp Narrative: Patient has use of accessory muscles. There is diminished breath sounds bilaterally. There is high-pitched wheezing with increased expiratory phase. There is slight scattered rales at the right and left base. Cardio regular rhythm, S1 normal heart sound, S2 normal heart sound and no murmurs Rate: tachycardic GI normal to inspection, nondistended, normoactive bowel sounds, non-tender, non-distended and no masses; Negative for hepatosplenomegaly Back/Spine no CVA tenderness Extremity Extremity Narrative: There is no asymmetry, swelling, discoloration, leg vein distention, palpable cords or tenderness along the distribution of the deep venous system. Patient does have stigmata of PAD. Neuro oriented x3, CN's II-XII intact bilaterally and no sensory deficits noted Sensorium / Orientation: alert Motor Exam: strength 5/5 throughout Psych mental status grossly normal Skin Skin Narrative: Multiple bruises upper extremity. General Skin Exam: Negative for jaundice or pallor Sepsis Attestation Sepsis Alert: Yes Sepsis Attestation: Agree w/Sepsis Date exam was performed: 05/22/24 Time exam was performed: 14:50 Possible Source of Sepsis: Pulmonary Sepsis Organ Dysfunction Criteria Present: Lactic Acid > 2 mmol/L Supportive Findings: Once I read the radiologist report and noted there was groundglass infiltrate right lower lobe sepsis treatment order set was initiated. He was treated with Rocephin and azithromycin and blood cultures were obtained. MDM MDM MDM Narrative Medical decision making narrative: Differential diagnosis would include exacerbate COPD due to viral or bacterial infection, pneumonia, pneumothorax, pulmonary embolus. Clinically I believe this is COPD exacerbation either due to viral or bacterial infection. Patient was treated with Solu-Medrol, DuoNeb and albuterol. Appropriate blood work was obtained to assess white count, differential, renal function, endorgan dysfunction. Chest x-ray was ordered. History & Record Review Additional record(s) reviewed:: Prior inpatient record (Patient was admitted February 22, 2024 for COPD exacerbation. Discharge summary authored by Dr. Abiel Chna was reviewed.), Prior outpatient record (Outpatient note authored by nurse practitioner Lola vernon for healing wound was reviewed. Most recentvisit was May 11, 2024.), Prior ED visit and Prior labs Lab Data Attestation: I reviewed the patient's lab results. Lab results narrative: White count is elevated 13.5 with shift of 96% segs. This could be due to the steroids. Patient's white count on February 22, 2024 was 11.2. Differential wasnot performed at that time. BMP is remarkable for glucose of 180 with a normal CO2 anion gap. BUN to creatinine ratio slightly elevated 22-1. Liver enzymes are normal. Labs: Laboratory Results - last 24 hr 05/22/24 12:38 WBC 13.5 H RBC 3.73 L Hgb 10.2 L Hct 33.4 L MCV 89.5 MCH 27.3 MCHC 30.5 L RDW Std Deviation 54.5 H RDW Coeff of Estelita 16.5 H Plt Count 197 MPV 8.9 Immature Gran % (Auto) 0.600 Neut % (Auto) 95.5 H Lymph % (Auto) 1.3 L Posey % (Auto) 2.4 Eos % (Auto) 0.1 Baso % (Auto) 0.1 Absolute Neuts (auto) 12.9 H Absolute Lymphs (auto) 0.18 L Nucleated RBC % 0 Sodium 140 Potassium 4.9 Chloride 102 Carbon Dioxide 26.4 Anion Gap 11 BUN 16 Creatinine 0.75 Estim Creat Clear Calc 78.56 Est GFR (MDRD) Non-Af 91 BUN/Creatinine Ratio 21.8 H Glucose 180 H Lactic Acid 2.7 H* Calcium 9.2 Total Bilirubin 0.50 AST 22 ALT 12 Alkaline Phosphatase 82 Total Protein 6.0 Albumin 3.4 Globulin 2.7 Albumin/Globulin Ratio 1.3 Radiography Chest X-Ray - ED: 2 View, Read by ED Physician (Comparison film from 2023 was used. The only difference in films is the penetration. There is no Insa pneumothorax or effusion. There is scarring noted left greater than right.), Unchanged, No Acute Disease and Chronic Changes Diagnostic Testing: Clinical Impression(s) from Imaging Studies Chest X-Ray 05/22/24 13:30 IMPRESSION: Prior sternotomy again noted. Persistent left upper and lower lung areas increased density, most probably representing scarring, not clearly changed. Areas of lesser changes are seen of the right, with marked interval improvement in the right lower lung airspace disease compared with the study of 02/19/2024. No new or worsened pneumonic process is seen. Probable small left pleural effusion. No definite right pleural effusion is seen. No pneumothorax is noted. The cardiomediastinal silhouette is stable, without evidence of cardiomegaly. Reading Location: [address] Chest CTA 05/22/24 13:50 IMPRESSION: 1. Although predominantly ground-glass opacities, extensive changes are seen in the right lower lobe, concerning for inflammation/infection. 2. Progression of areas of left lower lobe and left upper lobe scarring, also again seen with left lower lobe pleural-based loculated air collection. 3. No evidence of pulmonary embolism. Reading Location: [address] EKG Initial EKG: Attestation: I personally reviewed and interpreted this EKG as follows: Interpretation: Sinus Rhythm (Rate is 79. W[place] interval is 154 ms. Cures duration 86 ms. QT duration 360 ms. Coggon is normal. There is artifact that the computer is reading is nonseptic changes.) Management Discussion w/another healthcare provider: Hospitalist (Patient case was discussed with Dr. Terrell Suazo. Full admit PCU.) Treatment and Re-Evaluation :: Patient was seen at 1335. He is no longer breathing with pierced lips. He no longer has audible wheezing. His respiratory rate has decreased significantly. Discharge Plan Dx/Rx/DC Orders Clinical Impression: Right lower lobe pulmonary infiltrate, CAD (coronary artery disease), Acute exacerbation of chronic obstructive pulmonary disease, History of peripheral arterial disease, Bronchiectasis, Acute bronchospasm, Acute respiratory distress, Chronic respiratory failure with hypoxia and hypercapnia, Acidosis, lactic Disposition Disposition: Acute Care Hospital [facility] What to do if you have Problems For any increased pain, shortness of breath, bleeding, nausea or vomiting, chestpain, or any unexpected problems, contact your Primary Care Provider. Call [facility] ([phone]) or report to the closest Emergency Room. Call 911 if necessary. 05/22/24 7485 <Electronically signed by Randy Londono MD> Cosigner Signature (if applicable): CC: Dr. Mei Cummins MD ~ Signed [facility] Work Phone: [phone] History and physical note [facility] Medical Records Department [address] [place] [address] H&P Exam - Hospitalist 05/22/24 1514 MR#: [id number] Acct: [id number] Name: OSWALDO CORLEY Rep #:[id number] : 1940 83 From: Jacob womack DO PCP: Dr. Mei Cummins MD Status:AD M IN Location: [facility] [id number] HPI - General General Date of Admission: 05/22/24 Date of Service: 05/22/24 Chief Complaint: Worsening shortness of breath HPI Narrative OSWALDO CORLEY, is a 83 M who presented to [facility] ED on 05/22/2024 with worsening shortness of breath. Patient has history of COPD with chronic respiratory failure on 4 to 5 L nasal cannula at baseline. Was last hospitalized here in January for a COPD exacerbation with suspectedpneumonia. He recovered well during that hospitalization and was discharged home on hospital day 4.Patient states today that he has had increasing shortness of breath since Thursday. He was able to work outside on without issue. Denies any recent sick contacts that he is aware of. Today he had significant worsening shortness of breath to the point where he could only walk a few steps without getting very dyspneic. In the ED he was breathing 40-45 times per minute initially. Lactate was 2.7. He was mildly hypoxic to the mid 80s on 4 Lnasal cannula. He was given a breathing treatment and dose of steroids and his work of breathing did moderately improve at that time. CTA chest showed no PE, did show bibasilar groundglass opacities that were new in comparison to last CT chest that wasdone in September. Patient also has history of left lung cancer with resection and this area of the CTscan was the same, and chronic scarring changes were also noted. COVID/flu/RSV negative. Given concern for COPD exacerbation and pneumonia, hospitalist was contacted for admission. I saw the patient at bedside in the ED, was present. Patient was sitting back in bed and had mild increased work of breathing noted with pursed lips, butotherwise was conversing normally and in no acute distress. He had good skin color and appeared well-hydrated. noted that he does not appear nearly as sick as he has on previous admissions. Patient reports having a runny nose overthe past week or so. He denies any fevers or chills. Denies any chest pain or lower extremity swelling. Noother acute concerns at this time. [facility] Medical History COPD exacerbation Angina at rest Pulmonary embolus COVID Fecal occult blood test positive Abnormal chest CT COPD with acute exacerbation Squamous cell carcinoma of left lung Lung mass Depression Myocardial infarct Coronary artery disease Pulmonary neoplasm Wears glasses Wears dentures Cancer Anxiety Abrasion History of steroid therapy Prostate disease High cholesterol Injury of back Syncope History of weight loss Former smoker COPD (chronic obstructive pulmonary disease) On home oxygen therapy Shortness of breath on exertion Chronic cough History of stress test Cardiology follow-up encounter Chest pain No pertinent family history 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 Nocturnal hypoxemia Chronic hypoxemic respiratory failure Bronchiectasis Prostate CA CAD (coronary artery disease) HLD (hyperlipidemia) Benign essential HTN Home Medications ?Medication ?Instructions ?Recorded ?Last Taken ?Type nitroglycerin 0.4 mg sublingual 0.4 mg sublingual Q5M PRN Chest 12/29/14 1 Week Ago History tablet Pain ~07/02/20 fluticasone propionate 230 2 puff inhalation BID breat nicho 08/07/22 05/22/24 History mcg-salmeterol 21 mcg/actuation HFA inhaler (Advair HFA) atorvastatin 40 mg tablet 40 mg PO QHS cholesterol 05/21/24 History duloxetine 30 mg capsule,delayed 30 mg PO QPM DEPRESSI ON 03/25/23 05/21/24 History release tamsulosin 0.4 mg capsule 0.4 mg PO QPM BLADDER/ PROST ATE 03/25/23 05/21/24 History tiotropium bromide 2.5 2 puff inhalation DAILY copd 03/25/23 10/05/23 History mcg/actuation mist for inhalation (Spiriva Respimat) ezetimibe 10 mg tablet 10 mg PO DAILY cholesterol 0 09/28/23 05/21/24 History apixaban 5 mg tablet (Eliquis) 5 mg PO BID blood thinn er 10/05/23 05/22/24 History albuterol sulfate 90 mcg/actuation 2 puff inhalation Q 4H PRN wheezing 02/19/24 Unknown History aerosol inhaler aspirin 81 mg tablet,delayed 81 mg PO DAILY heart 01/3105/21/24 History release (Enteric Coated Aspirin) lorazepam 1 mg tablet 1 mg PO TID anxiety 02/19/24 05/22/24 History metoprolol tartrate 25 mg tablet 12.5 mg PO BID heart 02/20/24 05/22/24 History oxycodone 5 mg tablet 5 mg PO Q4H PRN chronic pain 02/21/24 05/22/24 History ondansetron 4 mg disintegrating 4 mg PO DAILY PRN naus ea and 03/30/24 Unknown History tablet vomiting roflumilast 500 mcg tablet 500 mcg PO DAILY 03/30/24 0 05/21/24 History collagenase clostridium histo. 250 1 applic topical DA SHELIA 05/22/24 05/21/24 History unit/gram topical ointment (Santyl) cyclosporine 0.05 % eye drops in a 1 drp ophthalmic (e ye) BID 05/22/24 05/21/24 History dropperette (Restasis) fluconazole 100 mg tablet 100 mg PO DAILY 05/22/24 History furosemide 20 mg tablet (Lasix) 20 mg PO DAILY weight gain 05/22/24 05/21/24 History guaifenesin 600 mg tablet, 1,200 mg PO BID cough 05/2205/22/24 History extended release 12 hr (Mucinex) prednisone 10 mg tablet 10 mg PO DAILY 05/22/2405/01 History Allergy/AdvReac Type Severity Reaction Status Date / Time isosorbide (From Imdur) Allergy Other-patient Verified 05/22/24 12:03 blacks out Family History Mother Cancer Father Heart disease COPD (chronic obstructive pulmonary disease) Surgical History Hx of CABG Hx of heart artery stent Hx of transurethral resection of prostate Hx of pneumonectomy Hx of CABG No pertinent past surgical history Social History household members: spouse Smoking Status: Former smoker Tobacco: How many years used: 45 Electronic Cigarette Use: not used how long ago did patient quit smokin, second hand exposure: Yes alcohol intake: never substance use type: does not use ROS Constitutional Constitutional: Denies chills, fatigue, fever(s) or weakness Eyes Eyes: Denies change in vision ENT HEENT: Reports nasal congestion; Denies nasal discharge, post nasal drip or sorethroat Cardiovascular Cardiovascular: Denies chest pain Respiratory/Chest Respiratory/Chest: Reports cough, dyspnea, shortness of breath at rest, shortness of breath with exertion and wheezing; Denies productive cough Gastrointestinal Gastrointestinal: Denies abdominal pain Genitourinary Genitourinary: Denies dysuria Musculoskeletal Musculoskeletal: Denies arthralgias or myalgias Neurologic Neurologic: Denies dizziness or headache(s) Vital Signs Vital Signs Vital Signs: 05/22/24 12:03 05/22/24 12:14 05/22/24 12:50 Temperature 97.4 F L Temperature Source Temporal Pulse Rate 106 H 80 Respiratory Rate 38 H 22 H Respiratory Effort Normal Short of Breath Labored Respiratory Depth Normal Respiratory Pattern Normal Tachypnea Blood Pressure 117/59 L Blood Pressure Mean 78 Pulse Ox 86 Oxygen Delivery Method Nasal Cannula Nasal Cannula Oxygen Flow Rate (L/min) 5 5 05/22/24 13:01 05/22/24 13:18 05/22/24 14:00 Temperature Temperature Source Pulse Rate 79 96 Respiratory Rate 18 28 H Respiratory Effort Respiratory Depth Respiratory Pattern Blood Pressure 122/56 H 146/77 H Blood Pressure Mean 78 100 Pulse Ox 98 100 100 Oxygen Delivery Method Nasal Cannula Nasal Cannula Nasal Cannula Oxygen Flow Rate (L/min) 5 4 05/22/24 15:00 Temperature Temperature Source Pulse Rate 92 Respiratory Rate 26 H Respiratory Effort Respiratory Depth Respiratory Pattern Blood Pressure 111/63 Blood Pressure Mean 79 Pulse Ox 100 Oxygen Delivery Method Nasal Cannula Oxygen Flow Rate (L/min) Weight Weight: 76.7 kg Body Mass Index (BMI) 22.9 Physical Exam Const alert, oriented x3, no apparent distress and average body habitus Constitutional Narrative: Pleasant elderly male, sitting back comfortably in bed, mild increased work of breathing with pursed lips noted but otherwise good skin color and turgor, and patient conversing normally with no conversational dyspnea. General Appearance: cooperative and comfortable HEENT normocephalic, head/scalp atraumatic, hearing grossly normal bilaterally, nasal mucous membranes and turbinates normal and moist oral mucous membranes Eyes PERRL, EOMs intact bilaterally and conjunctivae normal Neck full ROM Chest inspection of chest normal Resp no use of accessory muscles Resp Narrative: Mild increased work of breathing with pursed lip breathing noted on 5 L nasal cannula. Moderately diminished breath sounds bilaterally throughout but no wheezing or crackles noted. Cardio regular rate, regular rhythm, no murmurs and peripheral pulses 2+ throughout GI normal to inspection, nondistended, normoactive bowel sounds, soft to palpation,non-tender and non-distended Back/Spine normal ROM Extremity normal to inspection, full ROM and no pedal edema Skin no rashes or lesions noted Neuro moves all extremities and no focal motor deficits Speech: speech normal Motor Exam: strength 5/5 throughout Psych mental status grossly normal Results Lab / Micro Data 05/22/24 12:38 05/22/24 12:38 Labs: Laboratory Results - last 24 hr 05/22/24 12:38: WBC 13.5 H, RBC 3.73 L, Hgb 10.2 L, Hct 33.4 L, MCV 89.5, MCH 27.3, MCHC 30.5 L, RDW Std Deviation 54.5 H, RDW Coeff of Estelita 16.5 H, Plt Count 197, MPV 8.9, Immature Gran % (Auto) 0.600, Neut % (Auto) 95.5 H, Lymph % (Auto)1.3 L, Posey % (Auto) 2.4, Eos % (Auto) 0.1, Baso % (Auto) 0.1, Absolute Neuts (auto) 12.9 H, Absolute Lymphs (auto) 0.18 L, Nucleated RBC % 0, Sodium 140, Potassium 4.9, Chloride 102, Carbon Dioxide 26.4, Anion Gap 11, BUN 16, Creatinine 0.75, Estim Creat ClearCalc 78.56, Est GFR (MDRD) Non-Af 91, BUN/Creatinine Ratio 21.8 H, Glucose 180 H, Lactic Acid 2.7 H*, Calcium 9.2, Total Bilirubin 0.50, AST 22, ALT 12, Alkaline Phosphatase 82, Total Protein 6.0, Albumin 3.4, Globulin 2.7, Albumin/Globulin Ratio 1.3 Micro: Microbiology 05/22/24 12:25 Mucosa - Nose SARS-CoV-2, Influenza & RSV (PCR) - Final Imaging Radiology Impression Chest X-Ray 05/22/24 13:30 IMPRESSION: Prior sternotomy again noted. Persistent left upper and lower lung areas increased density, most probably representing scarring, not clearly changed. Areas of lesser changes are seen of the right, with marked interval improvement in the right lower lung airspace disease compared with the study of 02/19/2024. No new or worsened pneumonic process is seen. Probable small left pleural effusion. No definite right pleural effusion is seen. No pneumothorax is noted. The cardiomediastinal silhouette is stable, without evidence of cardiomegaly. Reading Location: [address] Chest CTA 05/22/24 13:50 IMPRESSION: 1. Although predominantly ground-glass opacities, extensive changes are seen in the right lower lobe, concerning for inflammation/infection. 2. Progression of areas of left lower lobe and left upper lobe scarring, also again seen with left lower lobe pleural-based loculated air collection. 3. No evidence of pulmonary embolism. Reading Location: [address] Assessment & Plan Assessment/Plan (1) Acute exacerbation of chronic obstructive pulmonary disease: (2) Chronic respiratory failure with hypoxia and hypercapnia: (3) Acidosis, lactic: PLAN: Plan Patient is an 83-year-old male who presented [facility] ED on 05/22/2024 with worsening shortness of breath. 1. COPD exacerbation with concern for community-acquired pneumonia in setting of chronic hypoxic respiratory failure ? Admit under inpatient status to PCU. On home 4 to 5 L nasal cannula at baseline. Mildly hypoxic on home level of oxygen on admit but significant dyspnea both at rest and with exertion noted. CTA chest showed no PE but did show worse bilateral groundglass opacities in comparison to prior chest imaging concerning for viral versus bacterial pneumonia. COVID/flu/RSV negative. Respiratory PCR panel,sputum culture, urine antigens ordered. Procalcitonin ordered. Patient notably has been on prednisone 10 mg daily for the past few years. Will treat with IV steroids, scheduled DuoNebs and IV antibiotics for now. Wean supplemental oxygen as able. Continue other home inhalers. 2. Elevated lactic acid ? Lactate 2.7 on admit. Suspect secondary to hypoxia in setting of COPD exacerbation. Follow-up repeat lactic acid this evening. Chronic medical conditions: ? History of CAD with CABG and stenting, hypertension, hyperlipidemia: Normotensive on admit. Continue home aspirin, statin, Zetia, Lasix, Lopressor. ? Normocytic anemia, history of GI bleed with ABLA: Hemoglobin 10.3 on admit, stable at baseline around 10. 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 Continue home PPI. ? BPH with obstructive symptoms: Continue home Flomax. ? Anxiety/depression: Continue home duloxetine and Ativan as needed. ? 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 ? Chronic pain: Continue home oxycodone as needed. ? History of left-sided lung cancer s/p surgical resection DVT prophylaxis: Not indicated, on Eliquis CODE STATUS: DNR CCA, DNI Expected disposition: Home, 2 to 3 days Total clinical time spent by myself addressing the patient's medical issues, reviewing all the data, and collaborating with patient's care team: 55 minutes. Charges/Coding Visit Charges Inpatient E&M: 55303 Init Hosp L2 05/22/24 1556 Cosigner Signature (if applicable): CC: Dr. Jacob Suazo DO; Dr. Mei Cummins MD~ Signed [facility]03-23-2025 Discharge summary [facility] Medical Records Department [address] [place] [address] Emergency Department Summary 05/22/24 MR#: [id number] Acct: [id number] Name: OSWALDO CORLEY Rep #:[id number] : 1940 83 From: Randy Londono MD PCP: Dr. Mei Cummins MD Status:RE G ER Location: ED HPI History of Present Illness Chief Complaint: Shortness of Breath Detail of Chief Complaint: Shortness of breath since Thursday Informant: patient and spouse/S.O. 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 He is seen by supervisory aide. He is presently on prednisone 10 mg. He apparently did work outside on . Symptoms started on Thursday. He does have a cough which is chronic. He does have colored sputum which is not normal. He has had no ill contacts. He has a chronic intermittent runny nose. He denies fever, chills night sweats. He doeshave remote history of DVT. He presently denies leg pain, swelling discoloration. Patient denies chest pain, pressure or tightness. He denies pain with breathing. He denies abdominal pain, nausea, vomiting or diarrhea. Patient does have history of COPD with chronic respiratory failure, coronary disease, lung cancer diagnosed several years ago, prostate cancer, hyperlipidemia, BPH and PAD. Prior similar symptoms: Yes Recent Illness/Hospitalization: No PFSH [facility] Medical History COPD exacerbation Angina at rest Pulmonary embolus COVID Fecal occult blood test positive Abnormal chest CT COPD with acute exacerbation Squamous cell carcinoma of left lung Lung mass Depression Myocardial infarct Coronary artery disease Pulmonary neoplasm Wears glasses Wears dentures Cancer Anxiety Abrasion History of steroid therapy Prostate disease High cholesterol Injury of back Syncope History of weight loss Former smoker COPD (chronic obstructive pulmonary disease) On home oxygen therapy Shortness of breath on exertion Chronic cough History of stress test Cardiology follow-up encounter Chest pain No pertinent family history 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 Nocturnal hypoxemia Chronic hypoxemic respiratory failure Bronchiectasis Prostate CA CAD (coronary artery disease) HLD (hyperlipidemia) Benign essential HTN Home Medications ?Medication ?Instructions ?Recorded ?Last Taken ?Type nitroglycerin 0.4 mg sublingual 0.4 mg sublingual Q5M PRN Chest 12/29/14 1 Week Ago History tablet Pain ~07/02/20 fluticasone propionate 230 2 puff inhalation BID breat nicho 08/07/22 05/22/24 History mcg-salmeterol 21 mcg/actuation HFA inhaler (Advair HFA) atorvastatin 40 mg tablet 40 mg PO QHS cholesterol 05/21/24 History duloxetine 30 mg capsule,delayed 30 mg PO QPM DEPRESSI ON 03/25/23 05/21/24 History release tamsulosin 0.4 mg capsule 0.4 mg PO QPM BLADDER/ PROST ATE 03/25/23 05/21/24 History tiotropium bromide 2.5 2 puff inhalation DAILY copd 03/25/23 10/05/23 History mcg/actuation mist for inhalation (Spiriva Respimat) ezetimibe 10 mg tablet 10 mg PO DAILY cholesterol 0 09/28/23 05/21/24 History apixaban 5 mg tablet (Eliquis) 5 mg PO BID blood thinn er 10/05/23 05/22/24 History albuterol sulfate 90 mcg/actuation 2 puff inhalation Q 4H PRN wheezing 02/19/24 Unknown History aerosol inhaler aspirin 81 mg tablet,delayed 81 mg PO DAILY heart 01/3105/21/24 History release (Enteric Coated Aspirin) lorazepam 1 mg tablet 1 mg PO TID anxiety 02/19/24 05/22/24 History metoprolol tartrate 25 mg tablet 12.5 mg PO BID heart 02/20/24 05/22/24 History oxycodone 5 mg tablet 5 mg PO Q4H PRN chronic pain 02/21/24 05/22/24 History ondansetron 4 mg disintegrating 4 mg PO DAILY PRN naus ea and 03/30/24 Unknown History tablet vomiting roflumilast 500 mcg tablet 500 mcg PO DAILY 03/30/24 0 05/21/24 History collagenase clostridium histo. 250 1 applic topical DA SHELIA 05/22/24 05/21/24 History unit/gram topical ointment (Santyl) cyclosporine 0.05 % eye drops in a 1 drp ophthalmic (e ye) BID 05/22/24 05/21/24 History dropperette (Restasis) fluconazole 100 mg tablet 100 mg PO DAILY 05/22/24 History furosemide 20 mg tablet (Lasix) 20 mg PO DAILY weight gain 05/22/24 05/21/24 History guaifenesin 600 mg tablet, 1,200 mg PO BID cough 05/2205/22/24 History extended release 12 hr (Mucinex) prednisone 10 mg tablet 10 mg PO DAILY 05/22/2405/01 History Allergy/AdvReac Type Severity Reaction Status Date / Time isosorbide (From Imdur) Allergy Other-patient Verified 05/22/24 12:03 blacks out Family History Mother Cancer Father Heart disease COPD (chronic obstructive pulmonary disease) Surgical History Hx of CABG Hx of heart artery stent Hx of transurethral resection of prostate Hx of pneumonectomy Hx of CABG No pertinent past surgical history Social History household members: spouse Smoking Status: Former smoker Tobacco: How many years used: 45 Electronic Cigarette Use: not used how long ago did patient quit smokin, second hand exposure: Yes alcohol intake: never substance use type: does not use ROS ROS ED Constitutional Constitutional ED: Denies chills, fever(s), subjective, sweats or weight loss Eyes Eyes: Denies blurry vision, change in vision or diplopia ENT ENT ED: Reports rhinorrhea; Denies ear pain or sore throat Cardiovascular Cardiovascular: Denies chest pain, orthopnea, palpitations, paroxysmal nocturnaldyspnea or racing heartbeat Respiratory/Chest Respiratory/Chest: Reports cough, dyspnea, dyspnea on exertion and sputum; Denies orthopnea or paroxysmal nocturnal dyspnea Gastrointestinal Gastrointestinal: Denies abdominal pain, diarrhea, nausea or vomiting Genitourinary Genitourinary ED: Denies dysuria, hematuria or urinary frequency Musculoskeletal Musculoskeletal: Denies arthralgias or myalgias Integumentary Reports other Details: Patient has multiple bruises. He states this is not new.; Denies rash Neurologic Neurologic: Reports weakness Hematologic/Lymphatic Hematologic/Lymphatic: Reports systems reviewed and no addt'l complaints, exceptas documented EXAM Physical Exam Const Vital Signs: 05/22/24 12:03 05/22/24 12:14 05/22/24 12:50 Temperature 97.4 F L Temperature Source Temporal Pulse Rate 106 H 80 Respiratory Rate 38 H 22 H Respiratory Effort Normal Short of Breath Labored Respiratory Depth Normal Respiratory Pattern Normal Tachypnea Blood Pressure 117/59 L Blood Pressure Mean 78 Pulse Ox 86 Oxygen Delivery Method Nasal Cannula Nasal Cannula Oxygen Flow Rate (L/min) 5 5 05/22/24 13:01 05/22/24 13:18 05/22/24 14:00 Temperature Temperature Source Pulse Rate 79 96 Respiratory Rate 18 28 H Respiratory Effort Respiratory Depth Respiratory Pattern Blood Pressure 122/56 H 146/77 H Blood Pressure Mean 78 100 Pulse Ox 98 100 100 Oxygen Delivery Method Nasal Cannula Nasal Cannula Nasal Cannula Oxygen Flow Rate (L/min) 5 4 05/22/24 15:00 Temperature Temperature Source Pulse Rate 92 Respiratory Rate 26 H Respiratory Effort Respiratory Depth Respiratory Pattern Blood Pressure 111/63 Blood Pressure Mean 79 Pulse Ox 100 Oxygen Delivery Method Nasal Cannula Oxygen Flow Rate (L/min) Positive well developed Constitutional Narrative: Patient is slightly cachectic. Presume he has consumptive COPD. He is tachycardic and tachypneic. He is breathing between 40 to 44 breaths/min. He is breathing with Edmondson lips and audible wheezing noted even before entering the room. General Appearance ED: well developed; Negative for cyanotic, diaphoretic, NAD or pallor HEENT Reports dry mucous membranes HEENT Narrative: Head is atraumatic normocephalic. Ears normal. Nares patent. Posterior pharynx unremarkable. Mouth ED: Yes dry mucous membranes Mouth: dry mucous membranes Eyes PERRL and EOMs intact bilaterally General Eye ED: Negative for pale conjunctiva or scleral icterus Neck no lymphadenopathy, supple and no JVD Chest Wall inspection of chest normal and palpation of chest normal Resp No normal respiratory effort and No clear to auscultation bilaterally Resp Narrative: Patient has use of accessory muscles. There is diminished breath sounds bilaterally. There is high-pitched wheezing with increased expiratory phase. There is slight scattered rales at the right and left base. Cardio regular rhythm, S1 normal heart sound, S2 normal heart sound and no murmurs Rate: tachycardic GI normal to inspection, nondistended, normoactive bowel sounds, non-tender, non- distended and no masses; Negative for hepatosplenomegaly Back/Spine no CVA tenderness Extremity Extremity Narrative: There is no asymmetry, swelling, discoloration, leg vein distention, palpable cords or tenderness along the distribution of the deep venous system. Patient does have stigmata of PAD. Neuro oriented x3, CN's II-XII intact bilaterally and no sensory deficits noted Sensorium / Orientation: alert Motor Exam: strength 5/5 throughout Psych mental status grossly normal Skin Skin Narrative: Multiple bruises upper extremity. General Skin Exam: Negative for jaundice or pallor Sepsis Attestation Sepsis Alert: Yes Sepsis Attestation: Agree w/Sepsis Date exam was performed: 05/22/24 Time exam was performed: 14:50 Possible Source of Sepsis: Pulmonary Sepsis Organ Dysfunction Criteria Present: Lactic Acid > 2 mmol/L Supportive Findings: Once I read the radiologist report and noted there was groundglass infiltrate right lower lobe sepsis treatment order set was initiated. He was treated with Rocephin and azithromycin and blood cultures were obtained. MDM MDM MDM Narrative Medical decision making narrative: Differential diagnosis would include exacerbate COPD due to viral or bacterial infection, pneumonia, pneumothorax, pulmonary embolus. Clinically I believe this is COPD exacerbation either due to viral or bacterial infection. Patient was treated with Solu-Medrol, DuoNeb and albuterol. Appropriate blood work was obtained to assess white count, differential, renal function, endorgan dysfunction. Chest x-ray was ordered. History & Record Review Additional record(s) reviewed:: Prior inpatient record (Patient was admitted February 22, 2024 for COPD exacerbation. Discharge summary authored by Dr. Abiel Chan was reviewed.), Prior outpatient record (Outpatient note authored by nurse practitioner Lola vernon for healing wound was reviewed.Most recentvisit was May 11, 2024.), Prior ED visit and Prior labs Lab Data Attestation: I reviewed the patient's lab results. Lab results narrative: White count is elevated 13.5 with shift of 96% segs. This could be due to the steroids. Patient's white count on February 22, 2024 was 11.2. Differential wasnot performed at that time. BMP is remarkable for glucose of 180 with a normal CO2 anion gap. BUN to creatinine ratio slightly elevated 22-1. Liver enzymes are normal. Labs: Laboratory Results - last 24 hr 05/22/24 12:38 WBC 13.5 H RBC 3.73 L Hgb 10.2 L Hct 33.4 L MCV 89.5 MCH 27.3 MCHC 30.5 L RDW Std Deviation 54.5 H RDW Coeff of Estelita 16.5 H Plt Count 197 MPV 8.9 Immature Gran % (Auto) 0.600 Neut % (Auto) 95.5 H Lymph % (Auto) 1.3 L Posey % (Auto) 2.4 Eos % (Auto) 0.1 Baso % (Auto) 0.1 Absolute Neuts (auto) 12.9 H Absolute Lymphs (auto) 0.18 L Nucleated RBC % 0 Sodium 140 Potassium 4.9 Chloride 102 Carbon Dioxide 26.4 Anion Gap 11 BUN 16 Creatinine 0.75 Estim Creat Clear Calc 78.56 Est GFR (MDRD) Non-Af 91 BUN/Creatinine Ratio 21.8 H Glucose 180 H Lactic Acid 2.7 H* Calcium 9.2 Total Bilirubin 0.50 AST 22 ALT 12 Alkaline Phosphatase 82 Total Protein 6.0 Albumin 3.4 Globulin 2.7 Albumin/Globulin Ratio 1.3 Radiography Chest X-Ray - ED: 2 View, Read by ED Physician (Comparison film from 2023 was used. The only difference in films is the penetration. There is no Insa pneumothorax or effusion. There is scarring notedleft greater than right.), Unchanged, No Acute Disease and Chronic Changes Diagnostic Testing: Clinical Impression(s) from Imaging Studies Chest X-Ray 05/22/24 13:30 IMPRESSION: Prior sternotomy again noted. Persistent left upper and lower lung areas increased density, most probably representing scarring, not clearly changed. Areas of lesser changes are seen of the right, with marked interval improvement in the right lower lung airspace disease compared with the study of 02/19/2024. No new or worsened pneumonic process is seen. Probable small left pleural effusion. No definite right pleural effusion is seen. No pneumothorax is noted. The cardiomediastinal silhouette is stable, without evidence of cardiomegaly. Reading Location: [address] Chest CTA 05/22/24 13:50 IMPRESSION: 1. Although predominantly ground-glass opacities, extensive changes are seen in the right lower lobe, concerning for inflammation/infection. 2. Progression of areas of left lower lobe and left upper lobe scarring, also again seen with left lower lobe pleural-based loculated air collection. 3. No evidence of pulmonary embolism. Reading Location: [address] EKG Initial EKG: Attestation: I personally reviewed and interpreted this EKG as follows: Interpretation: Sinus Rhythm (Rate is 79. W[place] interval is 154 ms. Cures duration 86 ms. QT duration 360 ms. Coggon is normal. There is artifact that the computer is reading is nonseptic changes.) Management Discussion w/another healthcare provider: Hospitalist (Patient case was discussed with Dr. Terrell Suazo. Full admit PCU.) Treatment and Re-Evaluation :: Patient was seen at 1335. He is no longer breathing with pierced lips. He no longer has audible wheezing. His respiratory rate has decreased significantly. Discharge Plan Dx/Rx/DC Orders Clinical Impression: Right lower lobe pulmonary infiltrate, CAD (coronary artery disease), Acute exacerbation of chronicobstructive pulmonary disease, History of peripheral arterial disease, Bronchiectasis, Acute bronchospasm, Acute respiratory distress, Chronic respiratory failure with hypoxia and hypercapnia, Acidosis, lactic Disposition Disposition: Acute Care Hospital [facility] What to do if you have Problems For any increased pain, shortness of breath, bleeding, nausea or vomiting, chestpain, or any unexpected problems, contact your Primary Care Provider. Call [facility] ([phone]) or report tothe closest Emergency Room. Call 911 if necessary. 05/22/24 1518 Cosigner Signature (if applicable): CC: Dr. Mei Cummins MD ~ Signed [facility]03-23-2025 Radiology Diagnostic study note [facility] Imaging Services [address] [place] [id number] CTA Chest W/WO Contrast MR#: [id number] Acct: [id number] Name: OSWALDO CORLEY Bruno Rep #: [id number] : 1940 M 83 From: Papo German MD PCP: Dr. Mei Cummins MD Status: RE G ER Study:CTA Chest W/WO Contrast Date of Exam: 05/22/24 Exam# [id number] Ordering Dr: Nancy Londono MD PROCEDURE: CTA CHEST W/WO CONTRAST 05/22/2024 REASON FOR EXAM: ACUTE DYSPNEA, HISTORY OF PE, HISTORY OF CANCER TECHNIQUE: CTA axial imaging of the chest with intravenous contrast. Coronal and Sagittal reconstruction series were provided. 3D, 3D post processing, 3D reconstructions, Maximum intensity projection (MIPs) Volume rendering and Shaded surface rendering was provided. PATIENT PREPARATION: Per protocol CONTRAST: Isovue 370 VOLUME: 100mL. One or more dose reduction techniques were used (e.g., Automated exposure control, adjustment of the mA and/or kV according to patient size, use of iterative reconstruction technique). RADIATION DOSE SUMMARY: CTDlvol: 10.88 mGy DLP: 415.87 mGycm. COMPARISON: Chest x-ray 05/22/[address] examination 10/05/2019 FINDINGS: Hardware: Prior sternotomy. Lymph nodes: Multiple small nonspecific mediastinal lymph nodes are noted. Heart: No evidence of cardiomegaly. No pericardial effusion is seen Thoracic Aorta: Bwrg-sg-fhcigynu aortic calcification is seen, with a somewhat tortuous aorta noted. No aneurysmal dilation of the aorta is seen in visualized areas. Pulmonary Vessels: No evidence of pulmonary embolism. Lungs and Airways: No evidence of pulmonary edema. Although predominantly ground-glass opacities, extensive changes are seen in theright lower lobe, concerning for inflammation/infection. An area of left upper lobe scarring is seen. This has progressed somewhat sincethe prior study. Mild right lower lobe scarring is probably unchanged from the prior exam. Pleura: A left lower lobe lateral pleural-based loculated air collection is again seen, with irregular thickened wall posteriorly. Some developing areas of peripheral calcification are noted. Additionally, slight interval increase in central retraction is noted, consistent with worsening scarring. No free pneumothorax is noted. No layering pleural effusion is evident. Upper Abdomen: Visualized portions of the upper abdomen show no acute process. Bones: Tgbl-[id number] degenerative changes of the visualized spine are seen. CT/CTA Chest W/WO Contrast IMPRESSION: 1. Although predominantly ground-glass opacities, extensive changes are seen in the right lower lobe, concerning for inflammation/infection. 2. Progression of areas of left lower lobe and left upper lobe scarring, also again seen with left lower lobe pleural-based loculated air collection. 3. No evidence of pulmonary embolism. Reading Location: [address] CC: Dr. Mei Cummins MD; Dr. Randy Londono MD ~ Neonatal Pediatric Nurse: Signed [facility]03-23-2025 Radiology Diagnostic study note [facility] Imaging Services [address] [place] [address] Chest PA and Lateral MR#: [id number] Acct: [id number] Name: OSWALDO CORLEY Rep #: [id number] : 1940 M 83 From: Papo German MD PCP: Dr. Mei Cummins MD Status: RE G ER Study:Chest PA and Lateral Date of Exam: 05/22/24 Exam# [id number] Ordering Dr: Nancy Londono MD EXAM: CHEST PA AND LATERAL CLINICAL HISTORY: DYSPNEA, CHRONIC RESPIRATORY FAILURE, WHEEZING COMPARISON: None. TECHNIQUE: Four view PA and lateral views of the chest obtained. RAD/Chest PA and Lateral IMPRESSION: Prior sternotomy again noted. Persistent left upper and lower lung areas increased density, most probably representing scarring, not clearly changed. Areas of lesser changes are seen of the right, with marked interval improvement in the right lower lung airspace disease compared with the study of 02/19/2024. No new or worsened pneumonic process is seen. Probable small left pleural effusion. No definite right pleural effusion is seen. No pneumothorax is noted. The cardiomediastinal silhouette is stable, without evidence of cardiomegaly. Reading Location: [address] CC: Dr. Mei Cummins MD; Dr. Randy Londono MD ~ Neonatal Pediatric Nurse: Signed [facility]03-14-2025 Progress note Author Rosa Garcia [facility] Note Date/Time May 13, 2024 2:4 0pm [facility] [address] [place] [address] Progress Note - Wound Care 05/11/24 1525 MR#: [id number] Acct: [id number] Name: OSWALDO CORLEY Rep #:[id number] : 1940 83 From: Rosa simon PSYCHOMETRIC EXAMINER PSYCHOMETRIC EXAMINER-C PCP: Dr. Mei Cummins MD Status:RE G RCR Location: History of Present Illness Date of Service: 05/11/24 Chief Complaint: Left medial ankle ulcer History of Wound: Patient is a very pleasant 83 year old male with a left medialankle ulcer that he has been seeing residential service technician, Dr. Viveros. Patient has a significant history for COPD that he sees Palliative care to help manage. He is on home O2. He also has a history of Prostate CA, Squamous carcinoma of left lung, HTN, anxiety and depression, AAA without rupture, CAD, coronary artery stent placement (multiple), CABG x 3, former smoker, PAD, PBH, and pulmonary embolism- on anticoagulants, and hyperlipidemia. He has had arterial studies inthe past and had some vascular procedures (by Dr. Vigil) to his left leg. He denies hx of diabetes. His providers are all with [facility]. He has had this left medial ankle ulcer for 3 months. He has been placing Santyl covered with [place] SAP. There has not been much improvement to this area. He states that he was referred to see us by [facility] and that Dr. Viveros also suggested he get a second opinion. He is on a new medication that his states is an antibiotic but they are unsure of the name. He denies fever, chills, nausea or vomiting. He comes in today for further evaluation and treatment. Progress of Wound: Left medial ankle ulcer has increased non viable tissue present. No erythema. No clinical sign of infection. This ulcer continues to be painful. He has a left post tib pulse. Toes with capillary refill < 3 seconds. Objective Data Objective Data Vital Signs: Vital Signs Temp Pulse Resp BP Pulse Ox O2 Del Method O2 Flow Rate 97.0 F L 69 16 136/52 H 95 Nasal Cannula 5 05/11/24 14:37 05/11/24 14:37 05/11/24 14:37 05/11/24 14:37 05/11/24 14:37 05/11/24 14:37 05/11/24 14:37 Oxygen Flow Rate (L/min) 5 Oxygen Delivery Method Nasal Cannula Weight: 165 lb Body Mass Index (BMI) 22.4 Charges/Coding Procedures Integumentary 111xxx-113xx: 74680 Nel subq tissue 20 sq cm/< Debridement Note Debridement Note Wound debrided: Medial ankle ulcer Laterality: Left Wound Grade/Stage: Stage 3 Type of Debridement: Excisional debridement Anesthesia Used: 5% Lidocaine Gel Depth: Down to and including healthy tissue and in the subcutaneous layer Percentage of wound debrided: 100 Instrument Used: 3mm curette and Forceps (scissors and pickups) Tissue Removed: Non viable tissue and slough in the base of the ulcer Severity: Fat Layer Exposed Amount of bleeding with debridement: None Bleeding Controlled with: Pressure Patient tolerated procedure: Patient tolerated procedure well Post-Debridement Measurements and Additional Note: Post-Debridement Measurements/Treatment WC - Nurse 1 - General Ulcer Assessment Start: 05/11/24 14:34 Freq: Status: Active Protocol: MILENA Activity Type Activity Date Activity User E-sign Co-sign Detail Recorded Client Recorded Date Recorded By Document 05/11/24 14:37 KW [id number] 05/11/24 14:41 KW 05/11/24 14:37 WC - Today's Visit Information Type of service Follow-up Visit (Physician/LEGAL STENOGRAPHER ) Arrival Mode Ambulatory, Wheelchair Accompanied by Height and Weight Body Mass Index (BMI) 22.4 BMI Classification Normal Vital Signs Temperature (97.8 F-99.1 F) 97.0 F L Temperature Source Temporal Pulse Rate (60-100) 69 Pulse Location Monitor Respiratory Rate (12-18) 16 Respiratory rate source Observation Pulse Oximetry 95 Oxygen Delivery Method Nasal Cannula O2 L/MIN (L/min) 5 Blood Pressure (90/60-120/80) 136/52 H Blood Pressure Mean (mm Hg) 80 Source Monitor Position Semi-Fowlers Blood Pressure Location Left Arm History Since Last Visit- (Skip if this is Patient's initial visit) Have you changed medications since your No last visit? Any new allergies or adverse reactions No Had a fall/change in ADL's that may No increase risk of falls Signs or symptoms of abuse and/or No neglect since last visit Have you been in the hospital since your No last visit? Has dressing in place as prescribed Yes Has compression in place as prescribed N/A Has offloadiing in place as prescribed N/A Experienced any changes in pain level or No management Left Footwear Regular Shoe Right Footwear Regular Shoe Pain Scale: 0-10 Numeric Is Patient Pain Free? Yes FABIAN Vela Nurse 1 - General Ulcer Measurement Start: 05/11/24 14:34 Freq: Status: Active Protocol: Activity Type Activity Date Activity User E-sign Co-sign Detail Recorded Client Recorded Date Recorded By Document 05/11/24 14:37 [id number] [id number] 05/11/24 14:41 KW 05/11/24 14:37 Wound Center Nurse 1 #1- L MEDIAL ANKLE -Current Size (cm) - Length 0.7 -Current Size (cm) - Width 0.5 -Current Size (cm) - Depth 0.3 -Total Square Cm 0.35 -Date of Last Picture (Recall this 05/11/24 field) -Exudate Amt Medium -Exudate Type Serosanguineous -Wound Margin Distinct, Outline Attached -Granulation Amt Small (1-33%) -Granulation Quality [place] -Necrosis Amt Large (67-100%) -Necrotic Tissue Type Adherent Slough -Texture (Bell-wound Skin Appearance) Assessed, Localized Edema -Moisture (Bell-wound Skin Appearance) Maceration, Weeping -Color (Bell-wound Skin Appearance) Assessed -Temperature (Bell-wound Skin No Abnormality Appearance) (Pt Warm) -Tenderness on Palpation (Bell-wound No Skin Appearance) -Ulcer Cleansing Rinsed/ Irrigated with Saline -Foul Odor after Cleansing No -Anesthetic Used 5% Lidocaine Gel WC - Nurse 2 - General Ulcer CM Notes Start: 05/11/24 14:34 Freq: Status: Active Protocol: Activity Type Activity Date Activity User E-sign Co-sign Detail Recorded Client Recorded Date Recorded By Document 05/11/24 14:54 GM [id number] 05/11/24 14:58 GM Edit Result 05/11/24 14:54 GM (1) [id number] 05/11/24 14:59 GM (1) #1- L MEDIAL ANKLE - Circular Undermining No => Yes 05/11/24 14:54 Wound Center Nurse 2 -Time 14:55 -Correct Patient Yes -Correct Side, Site, Position Yes -Correct Procedure Yes -Procedure Performed Yes -Type of Procedure Debridement -Clinical Debridement Subcutaneous -Tissue Removed Subcutaneous -Post Debridement (cm) - Length 0.6 -Post Debridement (cm) - Width 0.8 -Post Debridement (cm) - Depth 0.5 -Total Square (Post) (cm) 0.48 -Area of Debridement (cm) - Length 0.6 -Area of Debridement (cm) - Width 0.8 -Total Square (Area) (cm) 0.48 -Tunneling No -Undermining/Tunneling No -Circular Undermining Yes -Wound/Ulcer Outcome Not Healed -Ulcer Cleansing Rinsed/ Irrigated with Saline -Foul Odor after Cleansing No -Bioengineered Tissue No -Bleeding Controlled with Pressure -Treatment Response Procedure Tolerated Well -Offloading No -Debridement - Subq, 1st 20sq cm Yes Pain Scale: 0-10 Numeric Is Patient Pain Free? Yes WC - Nurse 3 - General Ulcer D/C NN Start: 05/11/24 14:34 Freq: Status: Active Protocol: Activity Type Activity Date Activity User E-sign Co-sign Detail Recorded Client Recorded Date Recorded By Document 05/11/24 15:10 KW [id number] 05/11/24 15:10 KW 05/11/24 15:10 Wound Care Center Nurse 3 #1- L MEDIAL ANKLE -Primary Dressing Applied Silicone Border Foam 4x4 -Other Dressing santyl applied with moist gauze -Primary Dressing Covered/Secured with Dry Gauze -Silicone Border Foam 4x4 1 Pain Scale: 0-10 Numeric Is Patient Pain Free? Yes Assessment/Plan Assessment/Plan (1) Chronic ulcer of left ankle: CODE(S): L97.329 - Non-pressure chronic ulcer of left ankle with unspecified severity (2) History of peripheral arterial disease: CODE(S): Z86.79 - Personal history of other diseases of the circulatory system (3) History of lung cancer: CODE(S): Z85.118 - Personal history of other malignant neoplasm of bronchus and lung (4) COPD (chronic obstructive pulmonary disease): CODE(S): J44.9 - Chronic obstructive pulmonary disease, unspecified PLAN: Plan Patient evaluated at the wound healing center today. He has been seeing Dr. Viveros, residential service technician, who referred him to the wound healing center for further evaluation and treatment. Due to his significant medical history, especially with his COPD and peripheral vascular disease, I would like to treat him conservatively. Wound care - Continue Santyl daily covered with gauze or [place] SAP. Wash with soap and water at the time of the dressing change. Wound culture from 03/30/24 showed no growth. Will follow up in 2 weeks with one of the podiatrists here at the wound healing center. 05/13/24 1440 <Electronically signed by Rosa Garcia NP PSYCHOMETRIC EXAMINER-C> Cosigner Signature (if applicable): CC: ~ Signed [facility] Work Phone: [phone]) 141-881503-14-2025 Progress note [facility] [address] [place] [address] Progress Note - Wound Care 05/11/24 1525 MR#: [id number] Acct: [id number] Name: OSAWLDO CORLEY Rep #:[id number] : 1940 83 From: Rosa simon PSYCHOMETRIC EXAMINER PSYCHOMETRIC EXAMINER-C PCP: Dr. Mei Cummins MD Status:RE G RCR Location: History of Present Illness Date of Service: 05/11/24 Chief Complaint: Left medial ankle ulcer History of Wound: Patient is a very pleasant 83 year old male with a left medialankle ulcer that hehas been seeing residential service technician, Dr. Viveros. Patient has a significant history for COPD that he sees Palliative care to help manage. He is on home O2. He also has a history of Prostate CA, Squamous carcinoma of left lung, HTN, anxiety and depression, AAA without rupture, CAD, coronary artery stent placement (multiple), CABG x 3, former smoker, PAD, PBH, and pulmonary embolism- on anticoagulants, andhyperlipidemia. He has had arterial studies inthe past and had some vascular procedures (by Dr. Vigil) to his left leg. He denies hx of diabetes. His providers are all with [facility]. He has had this left m edial ankle ulcer for 3 months. He has been placing Santyl covered with White P[place]on SAP. There has not been much improvement to this area. He states that he was referred to see us by [facility] and that Dr. Viveros also suggested he get a second opinion. He is on a new medication that his states is an antibiotic but they are unsure of the name. He denies fever, chills, nausea or vomiting. He comes in today for further evaluation and treatment. Progress of Wound: Left medial ankle ulcer has increased non viable tissue present. No erythema. No clinical sign of infection. This ulcer continues to be painful. He has a left post tib pulse. Toes with capillary refill < 3 seconds. Objective Data Objective Data Vital Signs: Vital Signs Temp Pulse Resp BP Pulse Ox O2 Del Method O2 Flow Rate 97.0 F L 69 16 136/52 H 95 Nasal Cannula 5 05/11/24 14:37 05/11/24 14:37 05/11/24 14:37 05/11/24 14:37 05/11/24 14:37 05/11/24 14:37 05/11/24 14:37 Oxygen Flow Rate (L/min) 5 Oxygen Delivery Method Nasal Cannula Weight: 165 lb Body Mass Index (BMI) 22.4 Charges/Coding Procedures Integumentary 111xxx-113xx: 44874 Nel subq tissue 20 sq cm/< Debridement Note Debridement Note Wound debrided: Medial ankle ulcer Laterality: Left Wound Grade/Stage: Stage 3 Type of Debridement: Excisional debridement Anesthesia Used: 5% Lidocaine Gel Depth: Down to and including healthy tissue and in the subcutaneous layer Percentage of wound debrided: 100 Instrument Used: 3mm curette and Forceps (scissors and pickups) Tissue Removed: Non viable tissue and slough in the base of the ulcer Severity: Fat Layer Exposed Amount of bleeding with debridement: None Bleeding Controlled with: Pressure Patient tolerated procedure: Patient tolerated procedure well Post-Debridement Measurements and Additional Note: Post-Debridement Measurements/Treatment - Nurse 1 - General Ulcer Assessment Start: 05/11/24 14:34 Freq: Status: Active Protocol: FABIAN.SHANTI Activity Type Activity Date Activity User E-sign Co-sign Detail Recorded Client Recorded Date Recorded By Document 05/11/24 14:37 RAYMOND [id number] 05/11/24 14:41 RAYMOND 05/11/24 14:37 - Today's Visit Information Type of service Follow-up Visit (Physician/LEGAL STENOGRAPHER ) Arrival Mode Ambulatory, Wheelchair Accompanied by Height and Weight Body Mass Index (BMI) 22.4 BMI Classification Normal Vital Signs Temperature (97.8 F-99.1 F) 97.0 F L Temperature Source Temporal Pulse Rate (60-100) 69 Pulse Location Monitor Respiratory Rate (12-18) 16 Respiratory rate source Observation Pulse Oximetry 95 Oxygen Delivery Method Nasal Cannula O2 L/MIN (L/min) 5 Blood Pressure (90/60-120/80) 136/52 H Blood Pressure Mean (mm Hg) 80 Source Monitor Position Semi-Fowlers Blood Pressure Location Left Arm History Since Last Visit- (Skip if this is Patient's initial visit) Have you changed medications since your No last visit? Any new allergies or adverse reactions No Had a fall/change in ADL's that may No increase risk of falls Signs or symptoms of abuse and/or No neglect since last visit Have you been in the hospital since your No last visit? Has dressing in place as prescribed Yes Has compression in place as prescribed N/A Has offloadiing in place as prescribed N/A Experienced any changes in pain level or No management Left Footwear Regular Shoe Right Footwear Regular Shoe Pain Scale: 0-10 Numeric Is Patient Pain Free? Yes WC - Nurse 1 - General Ulcer Measurement Start: 05/11/24 14:34 Freq: Status: Active Protocol: Activity Type Activity Date Activity User E-sign Co-sign Detail Recorded Client Recorded Date Recorded By Document 05/11/24 14:37 KW [id number] 05/11/24 14:41 KW 05/11/24 14:37 Wound Center Nurse 1 #1- L MEDIAL ANKLE -Current Size (cm) - Length 0.7 -Current Size (cm) - Width 0.5 -Current Size (cm) - Depth 0.3 -Total Square Cm 0.35 -Date of Last Picture (Recall this 05/11/24 field) -Exudate Amt Medium -Exudate Type Serosanguineous -Wound Margin Distinct, Outline Attached -Granulation Amt Small (1-33%) -Granulation Quality [place] -Necrosis Amt Large (67-100%) -Necrotic Tissue Type Adherent Slough -Texture (Bell-wound Skin Appearance) Assessed, Localized Edema -Moisture (Bell-wound Skin Appearance) Maceration, Weeping -Color (Bell-wound Skin Appearance) Assessed -Temperature (Bell-wound Skin No Abnormality Appearance) (Pt Warm) -Tenderness on Palpation (Bell-wound No Skin Appearance) -Ulcer Cleansing Rinsed/ Irrigated with Saline -Foul Odor after Cleansing No -Anesthetic Used 5% Lidocaine Gel WC - Nurse 2 - General Ulcer CM Notes Start: 05/11/24 14:34 Freq: Status: Active Protocol: Activity Type Activity Date Activity User E-sign Co-sign Detail Recorded Client Recorded Date Recorded By Document 05/11/24 14:54 GM [id number] 05/11/24 14:58 GM Edit Result 05/11/24 14:54 GM (1) [id number] 05/11/24 14:59 GM (1) #1- L MEDIAL ANKLE - Circular Undermining No => Yes 05/11/24 14:54 Wound Center Nurse 2 -Time 14:55 -Correct Patient Yes -Correct Side, Site, Position Yes -Correct Procedure Yes -Procedure Performed Yes -Type of Procedure Debridement -Clinical Debridement Subcutaneous -Tissue Removed Subcutaneous -Post Debridement (cm) - Length 0.6 -Post Debridement (cm) - Width 0.8 -Post Debridement (cm) - Depth 0.5 -Total Square (Post) (cm) 0.48 -Area of Debridement (cm) - Length 0.6 -Area of Debridement (cm) - Width 0.8 -Total Square (Area) (cm) 0.48 -Tunneling No -Undermining/Tunneling No -Circular Undermining Yes -Wound/Ulcer Outcome Not Healed -Ulcer Cleansing Rinsed/ Irrigated with Saline -Foul Odor after Cleansing No -Bioengineered Tissue No -Bleeding Controlled with Pressure -Treatment Response Procedure Tolerated Well -Offloading No -Debridement - Subq, 1st 20sq cm Yes Pain Scale: 0-10 Numeric Is Patient Pain Free? Yes WC - Nurse 3 - General Ulcer D/C NN Start: 05/11/24 14:34 Freq: Status: Active Protocol: Activity Type Activity Date Activity User E-sign Co-sign Detail Recorded Client Recorded Date Recorded By Document 05/11/24 15:10 KW [id number] 05/11/24 15:10 KW 05/11/24 15:10 Wound Care Center Nurse 3 #1- L MEDIAL ANKLE -Primary Dressing Applied Silicone Border Foam 4x4 -Other Dressing santyl applied with moist gauze -Primary Dressing Covered/Secured with Dry Gauze -Silicone Border Foam 4x4 1 Pain Scale: 0-10 Numeric Is Patient Pain Free? Yes Assessment/Plan Assessment/Plan (1) Chronic ulcer of left ankle: CODE(S): L97.329 - Non-pressure chronic ulcer of left ankle with unspecified severity (2) History of peripheral arterial disease: CODE(S): Z86.79 - Personal history of other diseases of the circulatory system (3) History of lung cancer: CODE(S): Z85.118 - Personal history of other malignant neoplasm of bronchus and lung (4) COPD (chronic obstructive pulmonary disease): CODE(S): J44.9 - Chronic obstructive pulmonary disease, unspecified PLAN: Plan Patient evaluated at the wound healing center today. He has been seeing Dr. Viveros, residential service technician, who referred him to the wound healing center for further evaluation and treatment. Due to his significant medical history, especially with his COPD and peripheral vascular disease, Iwould like to treat him conservatively. Wound care - Continue Santyl daily covered with gauze or [place] SAP. Wash with soap and water at thetime of the dressing change. Wound culture from 03/30/24 showed no growth. Will follow up in 2 weeks with one of the podiatrists here at the wound healing center. 05/13/24 1440 Cosigner Signature (if applicable): CC: ~ Signed [facility]03-12-2025 Evaluation note* Diagnosis Onset Date Resolution Status Admit Date Chronic ulcer of left ankle acute May 11, 2024 1:55pm History of lung cancer acute [facility] 2024 1:55pm History of peripheral arteri al disease acute May 11, 2024 1:55pm COPD (chronic obstructive pulmonary disease) chronic May 11, 2 025 1:55pm Acidosis, lactic resolved May 222024 3:14pm Acute exacerbation of chroni c obstructive pulmonary disease resolved [facility] 2024 3:14pm Chronic respiratory failure with hypoxia and hypercapnia inactive May 222024 3:14pm ABLA (acute blood loss anemia) resol faisal June 03, 2024 5:32pm Acute lower gastrointestinal bleeding resolved June 03, 2024 5:32pm Anemia acute June 08 2:55pm Angiodysplasia of gastrointestinal tract acute May 2:55pm 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 acute June 22, 2024 1:30pm Other specified peripheral vascular diseases acute June 22 1:30pm Angiodysplasia of gastrointestinal tract acute June 30, 2024 1:17pm Enteritis acute June 30, 2024 1:17pm 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 acute July 27 11:00am Other specified peripheral vascular diseases acute July 27, 2024 11:00am 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 layer exposed chronic July 27, 2024 11:00am 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 bone involvement without evid acute August 24, 2024 2:00pm 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 Faxed as requested. Coco Arriaga RN [facility]03-06-2025 Miscellaneous Notes* Telephone Encounter - Coco Arriaga RN - 05/05/2024 9:09 AM EST Jaimie-angelique nurse with [facility] calling and requesting pt's most recent PCP OV note to be faxed to her, for continuity of care, at [phone]. Faxed as requested. Coco Arriaga RN documented in this encounterPromedica Memorial Hospital02-26-2025 Evaluation note* Diagnosis Onset Date Resolution Status Admit Date Chronic ulcer of left ankle acute April 27, 2024 2:00pm History of lung cancer acute [facility] 2024 2:00pm History of peripheral arteri al disease acute April 27, 2 025 2:00pm COPD (chronic obstructive pulmonary disease) chronic April 2:00pm Chronic ulcer of left ankle acute May 11, 2024 1:55pm History of lung cancer acute [facility] 2024 1:55pm History of peripheral arteri al disease acute May 11, 2024 1:55pm COPD (chronic obstructive pulmonary disease) chronic May 11, 2 025 1:55pm Acidosis, lactic resolved May 222024 3:14pm Acute exacerbation of chroni c obstructive pulmonary disease resolved [facility] 2024 3:14pm Chronic respiratory failure with hypoxia and hypercapnia inactive Mar 2024 3:14pm ABLA (acute blood loss anemia) resol faisal June 03, 2024 5:32pm Acute lower gastrointestinal bleeding resolved June 03, 2024 5:32pm Anemia acute June 08 2:55pm Angiodysplasia of gastrointestinal tract acute May 2:55pm 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 acute June 22, 2024 1:30pm Other specified peripheral vascular diseases acute June 22 1:30pm Angiodysplasia of gastrointestinal tract acute June 30, 2024 1:17pm Enteritis acute June 30, 2024 1:17pm 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 Jamshid Brown APRN.CNP [facility] Work Phone: 1(429) 436-405802-19-2025 Miscellaneous Notes* Telephone Encounter - Jamshid Brown APRN.CNP - 04/20/2024 12:58 PM EST Noted. Jamshid Brown APRN.CNP * Telephone Encounter - Tyesha Lacey RN - 04/20/2024 12:44 PM EST Jeremiah SCHAFER with [facility] calls to let provider know that he saw patient for recertification of home health services. Patient to be seen weekly x 8 weeks for wound care for pressure ulcer. Wound care orders are from [facility] Wound Center. No call back needed. Tyesha Lacey RN documented in this encounterPromedica Memorial Hospital02-19-2025 Telephone encounter Note * Telephone Encounter - Tyesha Lacey RN - 04/20/2024 12:44 PM EST Jeremiah SCHAFER with [facility] calls to let provider know that he saw patient for recertification of home health services. Patient to be seen weekly x 8 weeks for wound care for pressure ulcer. Wound care orders are from [facility] Wound Center. No call back needed. Tyesha Lacey RN [facility]02-13-2025 History of Present illness Narrative* Betito Mauro MD - 04/14/2024 2:30 PM EST Images from the original note were not included. Surgery/Procedure Date: 05/13/2022 Surgeon(s)/Proceduralist(s) and Mathematical Engineer(s): Surgeon(s) and Role: Panel 1: * Alex Rivas MD - Primary Procedure(s): Right ileofemoral and deep femoral endarterectomy with patch angioplasty Right SFA eversion endarterectomy Right common and external iliac artery stent (two 10x60 Absolute Pro nitinol stents. ) Aortogram, partial right leg diagnostic angiography Surgery/Procedure Date: 03/28/2022 Surgeon(s)/Proceduralist(s) and Mathematical Engineer(s): Surgeon(s) and Role: * Alex Rivas MD - Primary INTERVENTIONAL PROCEDURE: Ultrasound-guided bilateral common femoral access Left common femoral artery catheterization and diagnostic angiography via left sheath- 44242 Aortic catheterization via right common femoral artery -41008 Aortogram with right lower extremity angiogram 94020, [address] [facility] ESTABLISHED CLINIC VISIT Oswaldo Corley [id number] HISTORY OF PRESENT ILLNESS: Mr. Corley is a 83 year old male seen in clinic today for follow up for PAD with chronic nonhealingleft medial ankle wound which has been largely stable with known left external iliac and SFA occlusions. Remains on 4-5 L supplemental oxygen at all times. Notes frequent exacerbations of his COPD which has been worsening over the past several months. Vascular health status: Antiplatelet / Anticoagulation: ASA 81 mg and Eliquis Statin or PCSK9i: atorvastatin Vascular screening and surveillance: AAA - 08/2023 duplex 3.4 x 3.4 cm PAD - following 08/18/2023 PVR left toe pressure 50 right toe pressure 75 Past Vascular Surgeries: Recent Surgeries this specialty 05/13/2022 (1yr, 11mo) THROMBOENDARTERECTOMY,W/ PATCH GRAFT; ILIOFEMORAL (Right), ENDOVASCULAR REVASCULARIZE PERCUTANEOUS ILIAC ARTERY UNILAT W/TRANSLUMINAL STENT & ANGIOPLASTY (Right), AORTOGRAMABDOMINAL (Right), INSERTION TEMPORARY INDWELLING BLADDER CATHETER (N/A) Alex Rivas MD; Marsha Blanca MD; Lorne Hutchinson MD - Posted 03/28/2022 (2yr, 1mo) ANGIOGRAM EXTREMITY UNILATERAL RADIOLOGICAL (Right) Alex Rivas MD - Posted MEDICATIONS: LORazepam (ATIVAN) 1 mg tablet Take 1 tablet by mouth three times a day for 90 days. RESTASIS 0.05 % ophthalmic emulsion Use 1 Drop in both eyes two times a day. tamsulosin (FLOMAX) 0.4 mg Take 0.4 mg by mouth once daily. roflumilast (DALIRESP) 500 mcg tab Take 1 tablet by mouth once daily. apixaban (ELIQUIS) 5 mg tab(s) Take 1 tablet by mouth two times a day. iv contrast (will be provided with radiology test) CT Chest W -Inject, intravenously, once for 1 dose.No IV access, insert saline lock prior to the beginning of sedation, infusion, injection of imaging exam. Discontinue saline lock post exam. If Pt. has a central line or IVAD, may access for administration according to line specific nursing protocol. Once exam is complete flush line and de-accessaccording to line specific nursing protocol in the CT contrast administration guidelines link. nitroglycerin sublingual (NITROSTAT) 0.4 mg SL tablet Dissolve 1 tablet under the tongue every 5 minutes as needed. predniSONE (DELTASONE) 10 mg tablet Take 1 tablet by mouth once daily. furosemide (LASIX) 20 mg tablet Take 1 tablet by mouth once daily. metoprolol tartrate, short acting, (LOPRESSOR) 25 mg tablet Take 0.5 tablets by mouth two times a day. Take 0.5 tab po bid. albuterol HFA (PROAIR HFA) 90 mcg/actuation inhaler Inhale 2 Puffs as instructed every 4 hours as needed for wheezing/shortness of breath. SPIRIVA RESPIMAT 2.5 mcg/actuation inhaler Inhale 2 Puffs as instructed once daily. collagenase (SANTYL) ointment Apply to affected area once daily. APPLY TO AFFECTED AREA OXYGEN, HOME THERAPY, 4-5 L/min by Nasal Cannula route continuous. atorvastatin (LIPITOR) 40 mg tablet Take 1 tablet by mouth once daily. ADVAIR HFA 230-21 mcg/actuation inhaler Inhale 2 Puffs as instructed two times a day. ezetimibe (ZETIA) 10 mg tablet Take 1 tablet by mouth once daily. acetaminophen 325 mg cap Take 650 mg by mouth every 8 hours as needed. oxyCODONE IR (ROXICODONE) 5 mg immediate release tablet Take 5 mg by mouth every 4 hours as needed. guaiFENesin (MUCINEX) 600 mg 12 hr tablet Take 1,200 mg by mouth two times a day. DULoxetine (CYMBALTA) 30 mg capsule Take 30 mg by mouth once daily. ondansetron (ZOFRAN) 4 mg tablet Take 4 mg by mouth every 8 hours as needed. aspirin, enteric coated (ASPIRIN, ENTERIC COATED) 81 mg EC tablet Take 81 mg by mouth once daily. SOCIAL HISTORY: Social History Tobacco Use Smoking status: Former Current packs/day: 0.00 Average packs/day: 2.0 packs/day for 40.0 years (80.0 ttl pk-yrs) Types: Cigarettes Start date: 11/08/1962 Quit date: 05/13/2002 Years since quittin.0 Smokeless tobacco: Never Vaping Use Vaping status: Never Used Substance Use Topics Alcohol use: Not Currently Alcohol/week: 3.0 standard drinks of alcohol Types: 3 Cans of beer per week Comment: light beer Drug use: No PAST MEDICAL HISTORY: PAST MEDICAL HISTORY Diagnosis Date Abdominal aortic aneurysm (AAA) without rupture (HCC) 11/19/2018 Atypical chest pain CAD (coronary artery disease) s/p CABG 1999, PCI w/ stents Chronic respiratory failure (HCC) COPD (chronic obstructive pulmonary disease) (HCC) Hyperlipidemia Hyperlipidemia Hypertension Lung cancer (HCC) Prostate cancer (HCC) Dx Dec 2014, s/p radiation, on hormonal therapy Ulcer of right foot (HCC) 04/30/2022 PAST SURGICAL HISTORY: PAST SURGICAL HISTORY Procedure Laterality Date ANGIOGRAM EXTREMITY COLONOSCOPY N/A 09/29/2023 [facility] COLONOSCOPY N/A 10/07/2023 [facility]ICIES INJ N[facility]A 09/29/2023 [facility] EGD W/O [facility] SPEC VARICIES INJ N/A 10/07/2023 [facility] LUNG BIOPSY Left needle biopsy LUNG SURGERY HX 02/20/20 lt lung nodule removed PAST SURGICAL HISTORY OF TURP PAST SURGICAL HISTORY OF 03/02/1999 triple bypass PAST SURGICAL HISTORY OF Left 09/04/2022 Skin biopsy left upper cheek face PAST SURGICAL HISTORY OF LE vascular ALLERGIES: ALLERGIES Allergen Reactions Imdur [Isosorbide M* Hives Black out and dizziness Targeted ROS Comprehensive system review of systems did not reveal any pertinent positives or negatives except per HPI PHYSICAL EXAM: Focused Physical Exam: BP 145/84 Pulse 73 SpO2 100[4L]% General: WDWN in NAD Pulmonary: Non-labored at rest on 4L NC, shortness of breath with minimal exertion Coronary: Regular rate, no ENIO or JVD Extremities: Normal range of motion, left medial ankle wound without drainage, erythema, malodor localized to the subcutaneous tissue DIAGNOSTIC TESTS REVIEWED FOR TODAY'S VISIT: Most recent labs and imaging results ASSESSMENT AND PLAN: Oswaldo Corley is a 83 year old male seen in follow up for PAD with chronic nonhealing left medial ankle wound has remained stable since her last visit 4 weeks ago. He remains on 4 L nasal cannula at all times for his severe COPD. He is prohibitively high risk for any major surgical vascular reconstruction given his severe pulmonary frailty. Wound remains stable, recommend continuing local wound care and monitoring. Will plan to recheck him in 3 months, sooner if any symptoms or wound progresses. Betito Mauro MD Vascular Surgery Staff 05/11/2024 documented in this encounterPromedica [facility]02-13-2025 [facility] Telephone encounter Note* Telephone Encounter - Twila Weston APRN.CNP - 04/14/2024 7:23 AM EST The following approved medication requests have been transmitted electronically. Requested Prescriptions Signed Prescriptions Disp Refills LORazepam (ATIVAN) 1 mg tablet 90 tablet 2 Sig: Take 1 tablet by mouth three times a day for 90 days. Authorizing Provider: TWILA WESTON APRN.CNP PDMP website checked and validated. All prescriptions have been APPROPRIATELY filled. No suspiciousactivity was identified. 04/14/2024 by Twila Weston APRN.CNP [facility]02-13-2025 Miscellaneous Notes* Telephone Encounter - Twila Weston APRN.CNP - 04/14/2024 7:23 AM EST The following approved medication requests have been transmitted electronically. Requested Prescriptions Signed Prescriptions Disp Refills LORazepam (ATIVAN) 1 mg tablet 90 tablet 2 Sig: Take 1 tablet by mouth three times a day for 90 days. Authorizing Provider: TWILA WESTON APRN.CNP PDM website checked and validated. All prescriptions have been APPROPRIATELY filled. No suspiciousactivity was identified. 04/14/2024 by Twila Weston APRN.CNP * Telephone Encounter - Erica Hunt LPN - 04/13/2024 8:10 AM EST Prescription Refill Information The patient has been identified by name and date of : Yes Caregiver verified no other encounters exist for this prescription request: Yes Caregiver confirmed with patient/requestor that no other refills are due, in the near future, with this provider at this time: Yes The last office visit in the department: 12/23/23 Does the patient have a future office visit with this provider/department: Yes 06/28/24 Requested Prescriptions Pending Prescriptions Disp Refills LORazepam (ATIVAN) 1 mg tablet 90 tablet 2 Sig: Take 1 tablet by mouth three times a day for 90 days. Erica Hunt LPN April 13, 2024 8:10 AM documented in this encounterPromedica Memorial Hospital02-12-2025 Telephone encounter Note * Telephone Encounter - Erica Hunt LPN - 04/13/2024 8:10 AM EST Prescription Refill Information The patient has been identified by name and date of : Yes Caregiver verified no other encounters exist for this prescription request: Yes Caregiver confirmed with patient/requestor that no other refills are due, in the near future, with this provider at this time: Yes The last office visit in the department: 12/23/23 Does the patient have a future office visit with this provider/department: Yes 06/28/24 Requested Prescriptions Pending Prescriptions Disp Refills LORazepam (ATIVAN) 1 mg tablet 90 tablet 2 Sig: Take 1 tablet by mouth three times a day for 90 days. Erica Hunt LPN April 13, 2024 8:10 AM [facility]02-06-2025 Telephone encounter Note* Telephone Encounter - Mei Cummins MD - 04/07/2024 4:47 PM EST Form signed Mei Cummins MD [facility]02-06-2025 Miscellaneous Notes* Telephone Encounter - Mei Cummins MD - 04/07/2024 4:47 PM EST Form signed Mei Cummins MD * Telephone Encounter - Vickie Carrillo MA - 04/04/2024 2:13 PM EST Type of form: AEP Life Support Device verification. asking if PCP will sign this. Upon completion, asking if office will mail this to [facility]. has brought in pre-addressed envelope with stamp to be sent out. Office notified her this can be completed. Return address to pt/ on envelope. Form received via walk in When form is completed, Mail form to [address] [address] Form has been forwarded to Physician Desk: Dr. Maria G Carrillo MA documented in this encounterPromedica Memorial Hospital02-03-2025 Telephone encounter Note * Telephone Encounter - Vickie Carrillo MA - 04/04/2024 2:13 PM EST Type of form: AEP Life Support Device verification. asking if PCP will sign this. Upon completion, asking if office will mail this to [facility]. has brought in pre-addressed envelope with stamp to be sent out. Office notified her this can be completed. Return address to pt/ on envelope. Form received via walk in When form is completed, Mail form to [address] [place] [address] Form has been forwarded to Physician Desk: Dr. Maria G Carrillo MA [facility]01-30-2025 Miscellaneous Notes* Telephone Encounter - Vickie Carrillo MA - 03/31/2024 9:04 AM EST Called and spoke with pt's , Serenity. Notified her of results and recommendations below from Provider. verbalized understanding. Vickie Carrillo MA * Telephone Encounter - Mei Cummins MD - 03/31/2024 8:59 AM EST Please notify patient that his lab results show that his potassium level is good at 4.0, so it doesnot look like he needs any potassium supplementation at this time. Mei Cummins MD * Telephone Encounter - Malu Tavares MA - 03/31/2024 8:42 AM EST Pt had blood work done at [facility] ordered by PCP. Results attached below. View External Labs - Chemistry [ID [id number]] Malu Tavares MA documented in this encounterPromedica Memorial Hospital01-30-2025 Telephone encounter Note * Telephone Encounter - Vickie Carrillo MA - 03/31/2024 9:04 AM EST Called and spoke with pt's , Serenity. Notified her of results and recommendations below from Provider. verbalized understanding. Vickie Carrillo MA [facility]01-30-2025 Telephone encounter Note* Telephone Encounter - Mei Cummins MD - 03/31/2024 8:59 AM EST Please notify patient that his lab results show that his potassium level is good at 4.0, so it doesnot look like he needs any potassium supplementation at this time. Mei Cummins MD [facility]01-30-2025 Telephone encounter Note* Telephone Encounter - Malu Tavares MA - 03/31/2024 8:42 AM EST Pt had blood work done at [facility] ordered by PCP. Results attached below. View External Labs - Chemistry [ID [id number]] Malu Tavares MA [facility]01-29-2025 Evaluation note* Diagnosis Onset Date Resolution Status Admit Date Chronic ulcer of left ankle acute March 30, 2024 1:51pm History of lung cancer acute [facility] 2024 1:51pm History of peripheral arteri al disease acute March 30 1:51pm COPD (chronic obstructive pulmonary disease) chronic March 30, 2024 1:51pm Chronic ulcer of left ankle acute April 27, 2024 2:00pm History of lung cancer acute Fe rustary 2024 2:00pm History of peripheral arteri al disease acute April 27, 2 025 2:00pm COPD (chronic obstructive pulmonary disease) chronic April 2:00pm Chronic ulcer of left ankle acute May 11, 2024 1:55pm History of lung cancer acute [facility] 2024 1:55pm History of peripheral arteri al disease acute May 11, 2024 1:55pm COPD (chronic obstructive pulmonary disease) chronic May 11, 025 1:55pm Acidosis, lactic resolved May 222024 3:14pm Acute exacerbation of chroni c obstructive pulmonary disease resolved [facility] 2024 3:14pm Chronic respiratory failure with hypoxia and hypercapnia inactive [facility] 2024 3:14pm ABLA (acute blood loss anemia) resol faisal June 03, 2024 5:32pm Acute lower gastrointestinal bleeding resolved June 03, 2024 5:32pm Anemia acute June 08 2:55pm Angiodysplasia of gastrointestinal tract acute May 2:55pm 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 acute June 22, 2024 1:30pm Other specified peripheral vascular diseases acute June 22 1:30pm Angiodysplasia of gastrointestinal tract acute June 30, 2024 1:17pm Enteritis acute June 30, 2024 1:17pm 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 acute July 06 8:23am Other specified peripheral vascular diseases acute July 06, 2024 8:23am [facility] Work Phone: 1(391) 333-597701-29-2025 Evaluation note* Diagnosis Onset Date Resolution Status Admit Date Chronic ulcer of left ankle acute March 30, 2024 1:51pm History of lung cancer acute [facility] 2024 1:51pm History of peripheral arteri al disease acute March 30 1:51pm COPD (chronic obstructive pulmonary disease) chronic March 30, 2024 1:51pm Chronic ulcer of left ankle acute April 27, 2024 2:00pm History of lung cancer acute Fe bruary 2024 2:00pm History of peripheral arteri al disease acute April 27, 2 025 2:00pm COPD (chronic obstructive pulmonary disease) chronic April 2:00pm Chronic ulcer of left ankle acute May 11, 2024 1:55pm History of lung cancer acute [facility] 2024 1:55pm History of peripheral arteri al disease acute May 11, 2024 1:55pm COPD (chronic obstructive pulmonary disease) chronic May 11, 025 1:55pm Acidosis, lactic resolved May 222024 3:14pm Acute exacerbation of chroni c obstructive pulmonary disease resolved [facility] 2024 3:14pm Chronic respiratory failure with hypoxia and hypercapnia inactive [facility] 2024 3:14pm ABLA (acute blood loss anemia) resol faisal June 03, 2024 5:32pm Acute lower gastrointestinal bleeding resolved June 03, 2024 5:32pm Anemia acute June 08 2:55pm Angiodysplasia of gastrointestinal tract acute May 2:55pm 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 acute June 22, 2024 1:30pm Other specified peripheral vascular diseases acute June 22 1:30pm Angiodysplasia of gastrointestinal tract acute June 30, 2024 1:17pm Enteritis acute June 30, 2024 1:17pm 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 acute July 13 2:00pm Other specified peripheral vascular diseases acute July 13, 2024 2:00pm 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 layer exposed chronic July 13, 2024 2:00pm [facility] Work Phone: 1(430) 510-267101-22-2025 History of Present illness Narrative* Rosalie Martinez PA-C - 03/23/2024 2:00 PM EST Patient: Oswaldo Corley PCP: Mei Cummins MD CC: follow up HPI: Oswaldo Corley 83 year old male, former [id number] smoker, quitting 2002 with PMH significant for CAD s/p CABG/stents, AAA, DM2, HTN, prostate cancer s/p radiation and hormonal therapy, squamous cell carcinoma of the lung s/p left thoracoscopy, conversion to mini thoracotomy, evacuation ofpleural effusion, wedge resection 01/2020, multiple lung nodules, COPD, PE on Eliquis and Bronchiectasis. Last office visit 01/19/2024 with Kailash Cordova APRN. Current maintenance therapy consistsof Advair, Spiriva, and as needed Albuterol. Patient was recently hospitalized at [facility] for 3 days in January secondary toCOPD exacerbation. Today, patient reports daily productive cough of light green sputum. No current hemoptysis. A few weeks ago he noticed blood tinged sputum because I was coughing so much. Taking Mucinex twice daily. No wheezing. No dyspnea at rest. Exertional dyspnea with walking short distances. Walking from parking lot to office was taxing. Difficulty climbing stairs or carrying heavy objects. No fevers, chills, or night sweats. No unintended weight loss. No lower extremity edema. No GERD/heartburn. Currently wearing 4-5 L supplemental oxygen. DME: [employer]. PAST MEDICAL HISTORY Diagnosis Date Abdominal aortic aneurysm (AAA) without rupture (HCC) 11/19/2018 Atypical chest pain CAD (coronary artery disease) s/p CABG 1999, PCI w/ stents Chronic respiratory failure (HCC) COPD (chronic obstructive pulmonary disease) (HCC) Hyperlipidemia Hyperlipidemia Hypertension Lung cancer (HCC) Prostate cancer (HCC) Dx Dec 2014, s/p radiation, on hormonal therapy Ulcer of right foot (HCC) 04/30/2022 Allergies: Imdur [Isosorbide M* Hives Comment:Black out and dizziness apixaban (ELIQUIS) 5 mg tab(s) Take 1 tablet by mouth two times a day. iv contrast (will be provided with radiology test) CT Chest W -Inject, intravenously, once for 1 dose.No IV access, insert saline lock prior to the beginning of sedation, infusion, injection of imaging exam. Discontinue saline lock post exam. If Pt. has a central line or IVAD, may access for administration according to line specific nursing protocol. Once exam is complete flush line and de-accessaccording to line specific nursing protocol in the CT contrast administration guidelines link. LORazepam (ATIVAN) 1 mg tablet Take 1 tablet by mouth three times a day for 90 days. nitroglycerin sublingual (NITROSTAT) 0.4 mg SL tablet Dissolve 1 tablet under the tongue every 5 minutes as needed. predniSONE (DELTASONE) 10 mg tablet Take 1 tablet by mouth once daily. furosemide (LASIX) 20 mg tablet Take 1 tablet by mouth once daily. metoprolol tartrate, short acting, (LOPRESSOR) 25 mg tablet Take 0.5 tablets by mouth two times a day. Take 0.5 tab po bid. albuterol HFA (PROAIR HFA) 90 mcg/actuation inhaler Inhale 2 Puffs as instructed every 4 hours as needed for wheezing/shortness of breath. SPIRIVA RESPIMAT 2.5 mcg/actuation inhaler Inhale 2 Puffs as instructed once daily. collagenase (SANTYL) ointment Apply to affected area once daily. APPLY TO AFFECTED AREA OXYGEN, HOME THERAPY, 4-5 L/min by Nasal Cannula route continuous. atorvastatin (LIPITOR) 40 mg tablet Take 1 tablet by mouth once daily. ADVAIR HFA 230-21 mcg/actuation inhaler Inhale 2 Puffs as instructed two times a day. ezetimibe (ZETIA) 10 mg tablet Take 1 tablet by mouth once daily. acetaminophen 325 mg cap Take 650 mg by mouth every 8 hours as needed. oxyCODONE IR (ROXICODONE) 5 mg immediate release tablet Take 5 mg by mouth every 4 hours as needed. guaiFENesin (MUCINEX) 600 mg 12 hr tablet Take 1,200 mg by mouth two times a day. DULoxetine (CYMBALTA) 30 mg capsule Take 30 mg by mouth once daily. ondansetron (ZOFRAN) 4 mg tablet Take 4 mg by mouth every 8 hours as needed. aspirin, enteric coated (ASPIRIN, ENTERIC COATED) 81 mg EC tablet Take 81 mg by mouth once daily. Social History Tobacco Use Smoking status: Former Current packs/day: 0.00 Average packs/day: 2.0 packs/day for 40.0 years (80.0 ttl pk-yrs) Types: Cigarettes Start date: 11/08/1962 Quit date: 05/13/2002 Years since quittin.8 Smokeless tobacco: Never Vaping Use Vaping status: Never Used Substance Use Topics Alcohol use: Not Currently Alcohol/week: 3.0 standard drinks of alcohol Types: 3 Cans of beer per week Comment: light beer Drug use: No Family History Problem Relation Age of Onset Cancer Mother 49 breast, bone Diabetes Father Heart Father Cancer Sister breast Emphysema Sister Smoker Diabetes Brother Heart Brother other (Other) Brother Parkinsons Diabetes Paternal Grandmother Heart Paternal Grandmother PAST SURGICAL HISTORY Procedure Laterality Date ANGIOGRAM EXTREMITY COLONOSCOPY N/A 09/29/2023 [facility] COLONOSCOPY N/A 10/07/2023 [facility] EGD W/O BRSH SPEC VARICIES INJ N/A 09/29/2023 [facility] EGD W/O BRS SPEC VARICIES INJ N/A 10/07/2023 [facility] LUNG BIOPSY Left needle biopsy LUNG SURGERY HX 02/20/20 lt lung nodule removed PAST SURGICAL HISTORY OF TURP PAST SURGICAL HISTORY OF 03/02/1999 triple bypass PAST SURGICAL HISTORY OF Left 09/04/2022 Skin biopsy left upper cheek face PAST SURGICAL HISTORY OF LE vascular I reviewed the past medical history, family history, social history and surgical history with changes noted above and updated in EMR. IMMUNIZATIONS Immunization History Administered Date(s) Administered COVID-19 original vaccine, age 12+ yr, monovalent ([facility] [employer] [place] TOP) 07/26/2021 COVID-19 original vaccine, age 12+ yr, monovalent ([facility] [employer] XII - PURPLE TOP) 05/03/2020 05/24/2020 02/06/2021 COVID-19 vaccine, age 12+ yr ([facility] [employer] COMIRNATY) 12/19/2022 12/23/2023 COVID-19 vaccine, age 12+ yr, bivalent ([facility]) 11/19/2021 influenza (HD-IIV3) vaccine, age 65+ yr, high dose, trivalent, PF (FLUZONE HIGH-DOSE) 11/25/2016 11/10/2017 12/08/2018 11/19/2021 12/23/2023 influenza (HD-IIV4) vaccine, age 65+ yr, high dose, quadrivalent, PF (FLUZONE HIGH-DOSE) 11/29/2020 12/19/2022 influenza (IIV3) vaccine, age 6 mo - 64 yr, trivalent (AFLURIA, FLULAVAL, FLUVIRIN, FLUZONE) 12/19/2015 pneumococcal conjugate (PCV13) vaccine, 13 valent (PREVNAR 13) 11/25/2016 pneumococcal polysaccharide (PPV23) vaccine, 23 valent (PNEUMOVAX 23) 11/16/2015 respiratory syncytial virus (RSV) vaccine, bivalent (ABRYSVO) 01/30/2023 ROS: All other systems reviewed as negative except for what is noted in HPI and review of systems. PHYSICAL EXAMINATION: BP (P) 108/68 Pulse (P) 68 Resp (P) 20 Wt (P) 77.1 kg (170 lb) SpO2 (P) 94% BMI (P) 23.71kg/m O2: 4L Gen: No acute distress. Cooperative with examination. HEENT: Normocephalic. Sclera, conjunctiva clear. No thrush. Resp: No stridor, accessory respiratory muscle use, supra-sternal or intercostal retractions. Diminished breath sounds. No wheezes, crackles. CV: Regular rythm. Heart tones normal. Radial pulses normal. Ext: Warm and well perfused. No clubbing, cyanosis, edema. Skin: No rash, ecchymoses. Neuro: Mental status normal. Affect normal. No tremor. DATA: Laboratory and Imaging: Last Spirometry SPIROMETRY WITH DILATOR IF OBSTRUCTED Collected: 10/13/2022 11:15 AM (Final result) Narrative: [facility] [address] [place] [address] Test Date: 2022-10-13 Pat Name: OSWALDO CORLEY Department: Room: Gender: Male Tray Drier: : 1940 Requested By: Order Number: [id number] Reading MD: Ab Calvillo MD Interpretive Statements The discard volume was reduced to 0.5 L; the sample volume was reduced to 0.5 L. ATS/ERS acceptability and repeatability standards for DLCO met. 4 puffs Albuterol (360 mcg) delivered by MDI via holding chamber. HR pre = 68/min, HR post = 60/min. ATS/ERS acceptability and repeatability standards for spirometry met. IMPRESSION: Spirometry indicates severe obstruction. There was not a significant bronchodilator response. The diffusing capacity is moderately reduced. The presence of a reduced lung diffusing capacity - that does not normalize when measured independent of alveolar volume (kCO) suggests a parenchymal or pulmonary vascular disorder. Electronically Signed On 10-13-2022 16:18:16 EDT by Ab Calvillo MD ID: [id number] Name: OSWALDO CORLEY Race: White Ht: 69.20 in Wt: 183.00 lbs Age: 82 Gender: Male : 1940 Dx: COPD_ Smoking Hx: Non-smoker Doctor: AB CALVILLO Test Date: 10/13/2022 Site: Tech: Marymarcus Ann PRE-BRONCH POST-BRONCH Pre LLN Pred ULN %Pred Post %Pred %Chg SPIROMETRY FVC (L) 3.28 2.71 3.68 4.66 89 3.34 90 1 FEV1 (L) 1.23 1.95 2.71 3.42 45 1.23 45 0 FEV1/FVC 0.37 0.61 0.76 0.87 49 0.37 48 -1 PEF L/s (L/sec) 3.03 4.76 7.03 9.29 43 3.28 46 8 FEF50 (L/sec) 0.48 1.42 3.55 5.67 13 0.50 13 2 FIF50 (L/sec) 2.59 3.52 35 FEF50/FIF50 0.19 90-100 0.14 -24 FIVC (L) 3.18 3.01 -5 INH12-76 (L/sec) 0.45 0.75 1.98 3.80 22 0.41 20 -9 Time (sec) 11.98 13.21 10 FET PEF (sec) 0.06 0.10 78 ANABELLE (L) 0.03 0.05 85 Vol Extrap % (%) 1 2 82 LUNG DIFFUSION DLCOunc (ml/min/mmHg) 9.53 13.53 23.46 33.40 40 VA (L) 4.68 5.30 6.67 8.03 70 DLunc/VA (ml/min/mmHg/L) 2.03 2.46 3.66 4.87 55 BHT (sec) 10.67 IVC (L) 2.92 Comments: The discard volume was reduced to 0.5 L; the sample volume was reduced to 0.5 L. ATS/ERS acceptability and repeatability standards for DLCO met. 4 puffs Albuterol (360 mcg) delivered by MDI via holding chamber. HR pre = 68/min, HR post = 60/min. ATS/ERS acceptability and repeatability standards for spirometry met. Arterial blood gas: No results found for: PH, PCO2, PO2, HCO3, BE, LACT CT Chest other findings: Last CT Chest - Impression Only CT CHEST W IVCON Exam End: 03/14/2024 2:37 PM (Final result) Impression: IMPRESSION: 1. New and worsening bronchiectasis with irregular patchy and groundglass opacities in the middle and RIGHT lower lobes, favoring infection. 2. Near complete interval resolution of suspected pneumonia in the LEFT lower lobe seen on 01/12/2024. 3. Interval resolution of the spiculated nodularity seen in the posterior RIGHT upper lobe on 01/12/2024, most likely resolving infection. 4. Unchanged thick walled pleural-based cavitation in the periphery of the LEFT lower lobe adjacent to wedge resection sutures.... Last XR Chest - Impression Only XR CHEST 1V FRONTAL Exam End: 06/17/2023 2:16 PM (Final result) Impression: IMPRESSION: No pneumothorax status post left lung biopsy ... ASSESSMENT/PLAN: 1. COPD, frequent exacerbations (HCC) - ICD9: 491.21, ICD10: J44.1 (primary diagnosis) Continue maintenance therapy with Trelegy. Rinse mouth after each use to help prevent oral thrush. Albuterol HFA inhaler, 2 inhalations 10-15 minutes prior to activities associated with shortness ofbreath, and as needed for rescue relief of shortness of breath or wheezing, up to 4 times daily. Start Daliresp 250 mcg daily for 4 weeks and then increase to 500 mcg daily to help prevent exacerbations. - ROFLUMILAST 500 MCG TABLET 2. Bronchiectasis without complication (HCC) - ICD9: 494.0, ICD10: J47.9 Mucus clearing techniques. 3. Chronic hypoxemic respiratory failure (HCC) - ICD9: 518.83, 799.02, ICD10: J96.11 Patient is compliant and benefits from supplemental oxygen. 4. History of cancer of lower lobe bronchus or lung - ICD9: V10.11, ICD10: Z85.[address] Meraz. Reviewed most recent CT chest. Patient had been treated for exacerbation and possible pneumonia recently. Next CT chest scheduled for August 2024. 5. Former smoker - ICD9: V15.82, ICD10: Z87.891 6. Encounter for long-term (current) use of medications - ICD9: V58.69, ICD10: Z79.899 Reviewed liver function from [facility] in January 2024. Will check after being on Daliresp for 2-4 weeks. - HEPATIC FUNCTION PNL Portions of this documentation were copied and pasted from previous office visit notes in order to provide a cohesive continuity of the history. The note has been reviewed and edited and updated as necessary. Rosalie Martinez PA-C documented in this encounterProm[facility]01-[facility]25 [facility] Telephone encounter Note* Telephone Encounter - Michelle Syed LPN - 03/23/2024 11:38 AM EST Patients called in and states she noticed the order for the wound center at [place] but they are unable to drive to [place] and is requesting the order be for the [facility] Wound center. Michelle Syed LPN [facility]01-22-2025 Miscellaneous Notes* Telephone Encounter - Michelle Syed LPN - 03/23/2024 11:38 AM EST Patients called in and states she noticed the order for the wound center at [place] but they are unable to drive to [place] and is requesting the order be for the [facility] Wound center. Michelle Syed LPN * Telephone Encounter - Naty Ley RN - 03/22/2024 2:03 PM EST Jeremiah from [facility] calls and states that patient would like referral to wound center to be faxed to [facility]. Fax number is [phone]. Naty Ley RN documented in this encounterPromedica Memorial Hospital01-21-2025 Telephone encounter Note * Telephone Encounter - Malu Tavares MA - 03/22/2024 2:38 PM EST Jeremiah notified. Will get drawn next week when pt has next visit. Malu Tavares MA [facility]01-21-2025 Miscellaneous Notes* Telephone Encounter - Malu Tavares MA - 03/22/2024 2:38 PM EST Jeremiah notified. Will get drawn next week when pt has next visit. Malu Tavares MA * Telephone Encounter - Mei Cummins MD - 03/22/2024 2:34 PM EST I would suggest checking a BMP to see what his potassium level is and see if he needs any additional replacement. Mei Cummins MD * Telephone Encounter - Naty Ley RN - 03/22/2024 1:59 PM EST Jeremiah calling from [facility] to report plan of care for patient and residential will continue to visit patient. 1 time a week for 4 weeks. Patient has been taking lasix 20 mg the last 9 or 10 days, daily. Patient has felt like his foot isswelling more which is why patient has been taking lasix daily instead of PRN.. is asking if patient needs to be taking a potassium supplement? Please review and Advise, Naty Ley RN documented in this encounterPromedica [facility] Hospital01-21-2025 Telephone encounter Note * Telephone Encounter - Mei Cummins MD - 03/22/2024 2:34 PM EST I would suggest checking a BMP to see what his potassium level is and see if he needs any additional replacement. Mei Cummins MD [facility]01-[facility]-2025 Telephone encounter Note* Telephone Encounter - Naty Ley RN - 03/22/2024 2:03 PM EST Jeremiah from [facility] calls and states that patient would like referral to wound center to be faxed to [facility]. Fax number is [phone]. Naty Ley RN [facility]01-21-20[facility] Telephone encounter Note* Telephone Encounter - Naty Ley RN - 03/22/2024 1:59 PM EST Jeremiah calling from [facility] to report plan of care for patient and residential will continue to visit patient. 1 time a week for 4 weeks. Patient has been taking lasix 20 mg the last 9 or 10 days, daily. Patient has felt like his foot isswelling more which is why patient has been taking lasix daily instead of PRN.. is asking if patient needs to be taking a potassium supplement? 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 HPI: The patient is an 83-year-old male with a past medical history significant for hyperlipidemia,hypertension, AAA, coronary artery disease (CABG x3 vessels), COPD and prostate cancer. Patient underwent a CT scan of the abdomen which incidentally revealed the presence of the left lower lobe lung nodule which was not previously observed on a CT chest from 2017. He therefore underwent a CT of the chest on 01/17/2020. That study demonstrated stable appearing scarring in the right lower lobe unchanged from previous study in 2012. There was scarring and nodularity left upper lobe aswell as a focal mass in the left lower lobe measuring 1.4 x 1.1 x 1.0 cm. He underwent a CT-guided biopsy on 01/27/2020. Tissue was nondiagnostic and the patient developed apneumothorax. He was transferred to [facility] [place]. PET scan 02/17/2020 done at [facility] demonstrated a 1.2 cm spiculated nodule in the periphery of the left lower lobe with intense FDG uptake. There was a small to moderate sized loculated pleural effusion along the lateral aspect of the left hemithorax. There was also moderately intense focal FDG accumulation along the posterior periphery of the prostate intensity uptake was suspicious for malignancy. There is a 3.4 cm infrarenal abdominal aortic aneurysm. Uderwent a left thoracoscopy with conversion to mini thoracotomy, evacuation of pleural effusion along with wedge resection of the left lower lobe lung mass including frozen section on 02/20/2020. Pathology: Moderately differentiated squamous cell carcinoma extending to the inked parenchymal margin. Pleural biopsy demonstrated fibrous tissue with hemorrhage and background blood clot. Synoptic report reviewed in care everywhere. Briefly overall tumor size was 1.1 x 0.9 x 0 point centimeter. It was a single focus of disease. No invasion to adjacent structures. Lymphovascular invasion was not identified bronchial and vascular margins were not applicable and the parenchymal margin was positive for invasive carcinoma. No lymph nodes observed in the specimen. Completed RT to the left lower lung on 05/21/2020. He was hospitalized on July 09 for pneumonia/exacerbation of COPD. Couple days prior to that he had sudden worsening of his chronic dyspnea. He underwent repeat CT chest on 08/10/2020. The study demonstrated tree-in-bud formation concerning for multifocal pneumonia in the right lung with a left apical pulmonary nodule with internal cavitation. Underwent bronchoscopy on 08/14. Lavage was performed. Cultures grew MSSA and Streptococcus mitis. He was treated with antimicrobials due to decompensated respiratory status and manage with prednisone as well. He had improvement in symptoms. Admitted to [facility] on 03/25/2023 for hemoptysis. He underwent a repeat CTA of the chest. When compared to the study done 10/2022 pulmonary emboli were observed in the second branch of the of the left lower lobe pulmonary artery. There was a pleural-based cavitary lesion in the left lower lobe increased in size since previous exam concerning for malignancy corresponding to the PET/CT abnormality. Spiculated lesions in the left lung were concerning for malignancy. Scattered ill-defined densities and some of them were new since previous exam. Duplex ultrasound legs demonstrated acute DVT in the right and left posterior tibial veins. He was monitored until 03/27. Hemoptysis resolved. He was started on apixaban. He had been on aspirin and Plavix and was advised to discontinue both at discharge. Presents for ongoing oncologic management. Interim history: Was in [facility] for 3 days for exacerbation of COPD in January. September [facility] for 19 days for upper and lower GI bleed. As of now, cough is at baseline. Sputum about 3 times a day. Had several days of hemoptysis several weeks ago. Left chest wall pain stable with Tylenol and oxycodone. O2 4 lpm 5-6 with activity. PMH, medications and allergies personally reviewed by me today. Any changes documented in appropriate section. PHYSICAL EXAM: Vitals: Blood pressure 108/66, pulse 83, temperature 36.4 C (97.5 F), temperature source Temporal, weight 77.1 kg (170 lb), SpO2 94%. Well-appearing and in no acute distress. EYES: Sclerae are anicteric bilaterally. LYMPHATIC: There is no palpable cervical or supraclavicular adenopathy. RESPIRATORY: Inspiratory breath sounds are of very diminished intensity in all [place]. CARDIOVASCULAR: Rhythm is regular. ABDOMEN: The abdomen is nondistended. Extremities: No swelling or edema. SKIN: No jaundice or rash. No petechiae. MS: There is a palpable defect in the left rib in the posterior axillary line. Not tender. ASSESSMENT/PLAN: (C33, C34.80) Cancer of trachea, bronchus, and lung (HCC) (primary encounter diagnosis) Assessment: -The patient is an 83-year-old male with a past medical history significant for advanced/severe COPD and prostate cancer who underwent a wedge resection for diagnostic and therapeutic purposes of a left lower lobe lung nodule. 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 -He received adjuvant radiation. -Reviewed his CT chest findings in detail. Although he has changes suggestive of infection, most ofthis could be from his hospitalization in January. He is very prone to exacerbations of COPD. No change in the chest wall cavity which was biopsied last spring. No other sign of active malignancy. Plan: -CT chest in about 6 months. (C61) Prostate cancer (HCC) Assessment: -EBRT 2015. -Follows with Dr. Catalan. Plan: -Continue follow up with Dr. Catalan. 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 -He was able to restart anticoagulation after undergoing therapy for GI bleed 10/2023. Plan: -Continue apixaban 5 mg BID. -Refill sent. Portions of this documentation were copied and pasted from my previous office visit note dated 05/18/2023 in order to provide a cohesive continuity of the history. The note has been reviewed and edited and updated as necessary. Salazar Meraz DO documented in this encounter[facility] Telephone encounter Note * Telephone Encounter - Salazar Meraz DO - 03/17/2024 4:01 PM EST Noted. Thank you. Salazar Meraz DO [facility]01-[facility] Miscellaneous Notes* Telephone Encounter - Salazar Meraz DO - 03/17/2024 4:01 PM EST Noted. Thank you. Salazar Meraz DO * Telephone Encounter - Radha Pearson LPN - 03/17/2024 3:05 PM EST Patient's returned call. Patient always coughs d/t his COPD, nothing excessive and she denies any other respiratory symptoms. Radha Pearson LPN * Telephone Encounter - Radha Pearson LPN - 03/17/2024 8:17 AM EST Message left for patient/ to contact office. Radha Pearson LPN * Telephone Encounter - Salazar Meraz DO - 03/16/2024 4:[address] scan showed no sign of cancer but there was suggestion of other bronchitis or pneumonia in the right lung. Has he been coughing more than usual or having other exacerbation of respiratory symptoms? Salazar Meraz DO documented in this encounterProm[facility]01-[facility] Telephone encounter Note * Telephone Encounter - Radha Pearson LPN - 03/17/2024 3:05 PM EST Patient's returned call. Patient always coughs d/t his COPD, nothing excessive and she denies any other respiratory symptoms. Radha Pearson LPN [facility]01-16-[facility] Telephone encounter Note* Telephone Encounter - Radha Pearson LPN - 03/17/2024 8:17 AM EST Message left for patient/ to contact office. Radha Pearson LPN [facility]01-15-[facility] Telephone encounter Note* Telephone Encounter - Salazar Meraz DO - 03/16/2024 4:[address] scan showed no sign of cancer but there was suggestion of other bronchitis or pneumonia in the right lung. Has he been coughing more than usual or having other exacerbation of respiratory symptoms? Salazar Meraz DO [facility]01-[facility] Telephone encounter Note* Telephone Encounter - Michelle Syed LPN - 03/16/2024 1:46 PM EST Jeremiah, Home Health nurse called and wanted to let you know this patient has had a lot of side effects from the metoprolol. He states patient has been complaining of dizziness, weakness, and hallucinations which have been getting progressively worse. Patient has been holding the night time dose the past 2 nights. Per nurse, vitals today are stable BP 118/60 HR 60s. Michelle Syed LPN [facility]01-15-[facility] Miscellaneous Notes* Telephone Encounter - Michelle Syed LPN - 03/16/2024 1:46 PM EST Jeremiah, Home Health nurse called and wanted to let you know this patient has had a lot of side effects from the metoprolol. He states patient has been complaining of dizziness, weakness, and hallucinations which have been getting progressively worse. Patient has been holding the night time dose the past 2 nights. Per nurse, vitals today are stable BP 118/60 HR 60s. Michelle Syed LPN documented in this encounterPromed[facility]01-14-2025 Instructions* Patient Instructions* Juan Carlos Viveros - 03/15/2024 1:49 PM EST Continue with santyl documented in this encounterPromedica [facility]01-14-2025 [facility] History of Present illness Narrative* Juan Carlos Viveros - 03/15/2024 1:43 PM EST FOLLOW UP PODIATRIC OFFICE VISIT Chief Complaint: This 83 year old who presents for follow up:left leg ulceration Patient presents to clinic for follow-up left leg ulceration He is currently applying tray. He does not feel there is any change Prior to the tray, he was using santyl without change PAIN EVALUATION 03/15/2024 1326 Pain Level: 4 Pain Location: Foot-Left Description: Sore Duration Units: Months Frequency: Intermittent Intervention/Comfort measure: Relaxation;Reposition Hemoglobin A1C Date Value Ref Range Status 06/24/2022 5.0 4.3 - 5.6 % Final Comment: [place] [employer] guidelines indicate that patients with HgbA1c in the range 5.7-6.4% are at increased risk for development of diabetes, and intervention by lifestyle modification may be beneficial. HgbA1c greater or equal to 6.5% is considered diagnostic of diabetes. PCP: Mei Cummins MD PAST MEDICAL HISTORY Diagnosis Date Abdominal aortic aneurysm (AAA) without rupture (HCC) 11/19/2018 Atypical chest pain CAD (coronary artery disease) s/p CABG 1999, PCI w/ stents Chronic respiratory failure (HCC) COPD (chronic obstructive pulmonary disease) (HCC) Hyperlipidemia Hyperlipidemia Hypertension Lung cancer (HCC) Prostate cancer (HCC) Dx Dec 2014, s/p radiation, on hormonal therapy Ulcer of right foot (HCC) 04/30/2022 Current Outpatient Medications Medication Sig LORazepam (ATIVAN) 1 mg tablet Take 1 tablet by mouth three times a day for 90 days. nitroglycerin sublingual (NITROSTAT) 0.4 mg SL tablet Dissolve 1 tablet under the tongue every 5 minutes as needed. predniSONE (DELTASONE) 10 mg tablet Take 1 tablet by mouth once daily. furosemide (LASIX) 20 mg tablet Take 1 tablet by mouth once daily. metoprolol tartrate, short acting, (LOPRESSOR) 25 mg tablet Take 0.5 tablets by mouth two times a day. Take 0.5 tab po bid. albuterol HFA (PROAIR HFA) 90 mcg/actuation inhaler Inhale 2 Puffs as instructed every 4 hours as needed for wheezing/shortness of breath. SPIRIVA RESPIMAT 2.5 mcg/actuation inhaler Inhale 2 Puffs as instructed once daily. collagenase (SANTYL) ointment Apply to affected area once daily. APPLY TO AFFECTED AREA OXYGEN, HOME THERAPY, 5 L/min by Nasal Cannula route continuous. apixaban (ELIQUIS) 5 mg tab(s) Take 1 tablet by mouth two times a day. atorvastatin (LIPITOR) 40 mg tablet Take 1 tablet by mouth once daily. ADVAIR HFA 230-21 mcg/actuation inhaler Inhale 2 Puffs as instructed two times a day. iv contrast (will be provided with radiology test) CT Chest W -Inject, intravenously, once for 1 dose.No IV access, insert saline lock prior to the beginning of sedation, infusion, injection of imaging exam. Discontinue saline lock post exam. If Pt. has a central line or IVAD, may access for administration according to line specific nursing protocol. Once exam is complete flush line and de-accessaccording to line specific nursing protocol in the CT contrast administration guidelines link. ezetimibe (ZETIA) 10 mg tablet Take 1 tablet by mouth once daily. iv contrast (will be provided with radiology test) CT Chest W -Inject, intravenously, once for 1 dose.No IV access, insert saline lock prior to the beginning of sedation, infusion, injection of imaging exam. Discontinue saline lock post exam. If Pt. has a central line or IVAD, may access for administration according to line specific nursing protocol. Once exam is complete flush line and de-accessaccording to line specific nursing protocol in the CT contrast administration guidelines link. acetaminophen 325 mg cap Take 650 mg by mouth every 8 hours as needed. oxyCODONE IR (ROXICODONE) 5 mg immediate release tablet Take 5 mg by mouth four times a day as needed. guaiFENesin (MUCINEX) 600 mg 12 hr tablet Take 1,200 mg by mouth two times a day. DULoxetine (CYMBALTA) 30 mg capsule Take 30 mg by mouth once daily. ondansetron (ZOFRAN) 4 mg tablet 1 tablet as needed. aspirin, enteric coated (ASPIRIN, ENTERIC COATED) 81 mg EC tablet Take 81 mg by mouth once daily. No current facility-administered medications for this visit. ALLERGIES Allergen Reactions Imdur [Isosorbide M* Hives Black out and dizziness PAST SURGICAL HISTORY Procedure Laterality Date ANGIOGRAM EXTREMITY COLONOSCOPY N/A 09/29/2023 [facility] COLONOSCOPY N/A 10/07/2023 [facility] EGD W/O [facility] SPEC VARICIES INJ N/A 09/29/2023 [facility] EGD W/O [facility] SPEC VARICIES INJ N/A 10/07/2023 [facility] LUNG BIOPSY Left needle biopsy LUNG SURGERY HX 02/20/20 lt lung nodule removed PAST SURGICAL HISTORY OF TURP PAST SURGICAL HISTORY OF 03/02/1999 triple bypass PAST SURGICAL HISTORY OF Left 09/04/2022 Skin biopsy left upper cheek face PAST SURGICAL HISTORY OF LE vascular Physical Exam: OBJECTIVE: Constitutional: Pt is a well developed 83 year old male who is alert, oriented, cooperative and in no apparent distress. Eyes: Following during examination. No redness or drainage. Respiratory: RR normal and nonlabored. Even breathing. No evidence of distress. Psychology: Patient is engaged during conversation. Normal affect and mood. Does not appear depressed or anxious. NVSI unchanged from previous visit. Dermatological: Ulceration #1 Location: left medial ankle Measurement: 5 mm x 7 mm Base: healthy. No local signs of infection . No exposed bone. There is dry blood without infection to left hallux medial nail border from patient self debridement Musculoskeletal/Orthopaedic: Patient has no pain to palpation of left lower extremity ASSESSMENT: (L98.491) Skin ulcer, limited to breakdown of skin (HCC) (primary encounter diagnosis) (I73.9) Peripheral arterial disease (HCC) PLAN: Discussed ulceration of left leg. No change. I do feel this is going to be a very difficult wound to heal due to underlying pad. Tray did not help. The wound actually appears healthy without any fibrotic debris. Continue with santyl. Unfortunately, if he does not have great perfusion, he is likely not going to heal. Regarding the small bleed of left hallux. No signs of infection. Reminded patient to avoid cutting toenails and that we can do for him. Juan Carlos Viveros DPM * Jacy Sunshine LPN - 03/15/2024 1:25 PM EST AMB ROOMING INTAKE FLOWSHEET DATA Pain Pain Level: 4 Pain Location: Foot-Left Description: Sore Duration Units: Months Frequency: Intermittent Intervention/Comfort measure: Relaxation, Reposition Patient presents with: Left Foot - Follow Up, Established Patient, Ulcer Jacy Sunshine LPN documented in this encounterProm[facility]01-14-2025 NoteL[facility]01-13-[facility] History of Present illness Narrative* Summer Grant RT(R) - 03/14/2024 2:20 PM EST Radiology Service Progress Note DATE OF SERVICE: March 14, 2024 TIME: 3:43 PM PATIENT IDENTITY VERIFICATION COMPLETED USING TWO (2) STANDARD IDENTIFIERS: Name and Date of confirmed by patient verbally. FALL SCREENING: Has the patient had 2 falls in the last year or 1 fall with injury or currently using an Ambulatory Assistive Device (Walker, Cane, Wheelchair, Crutches, etc.)? No PATIENT GENDER DATA: Assigned male at PATIENT RELEVANT IMPLANT DATA REVIEWED: Yes PATIENT PRESENTS WITH AN IMPLANTABLE OR ATTACHED TOWER HELPER: No ALLERGIES: Reviewed and unchanged CONTRAST ALLERGY: NO. EXAM: CT -CONTRAST INDUCED NEPHROPATHY RISK FACTORS: Patient age > 60 years CREATININE: Creatinine Date Value Ref Range Status 02/01/2024 0.87 0.73 - 1.22 mg/dL Final 11/13/2023 0.61 (L) 0.73 - 1.22 mg/dL Final 07/30/2023 0.90 0.73 - 1.22 mg/dL Final Estimated Glomerular Filtration Rate Date Value Ref Range Status 02/01/2024 87 >=60 mL/min/1.73m Final Comment: Estimated Glomerular Filtration Rate (eGFR) is calculated using the 2020 CKD-EPI creatinine equation. This equation utilizes serum creatinine, sex, and age as parameters. The creatinine assay has traceable calibration to isotope dilution- mass spectrometry. Refer to KDIGO guidelines for clinical interpretation. In patients with unstable renal function, e.g. those with acute kidney injury, the eGFRmay not accurately reflect actual GFR. eGFR- Date Value Ref Range Status 04/23/2021 >60 Final P.O.C.T. RESULTS: POC done: Yes, See Lab Tab March 14, 2024 TREATMENT: N/A PERIPHERAL IV DATA: Ambulatory: A peripheral IV was started in the Left antecubital site with a Angio cath: 22 gauge. RADIOLOGY DEPARTMENT: CT; Exam(s) Completed: Chest SIGNATURE: RT Joey(R) PATIENT NAME: Oswaldo Corley DATE: March 14, 2024 TIME: 3:43 PM documented in this encounterPromedica [facility] Hospital01-13-2025 NoteL[facility]01-[facility]-2025 NoteL[facility]01-09-[facility] History of Present illness Narrative* Betito Mauro MD - 03/10/2024 3:36 PM EST Images from the original note were not included. Surgery/Procedure Date: 05/13/2022 Surgeon(s)/Proceduralist(s) and Mathematical Engineer(s): Surgeon(s) and Role: Panel 1: * Alex Rivas MD - Primary Procedure(s): Right ileofemoral and deep femoral endarterectomy with patch angioplasty Right SFA eversion endarterectomy Right common and external iliac artery stent (two 10x60 Absolute Pro nitinol stents. ) Aortogram, partial right leg diagnostic angiography Surgery/Procedure Date: 03/28/2022 Surgeon(s)/Proceduralist(s) and Mathematical Engineer(s): Surgeon(s) and Role: * Alex Rivas MD - Primary INTERVENTIONAL PROCEDURE: Ultrasound-guided bilateral common femoral access Left common femoral artery catheterization and diagnostic angiography via left sheath- 64262 Aortic catheterization via right common femoral artery -[id number] Aortogram with right lower extremity angiogram 04242, [id number] [facility] VISIT Oswaldo Corley [id number] HISTORY OF PRESENT ILLNESS: Mr. Corley is a 83 year old male seen in clinic today for follow up for follow up for PAD with known left external iliac and SFA occlusions and nonhealing left medial ankle wound. His wound appears stable from our prior visit, he does not have any rest pain or other wounds in the lower extremities.He remains on supplemental 4L O2 at all times and has relied on a wheelchair for mobility secondaryto severe shortness of breath with ambulation. He has wound care coming to his house for ongoing wound surveillance and management. From 02/05/2024 progress note: CABG x 3 in 1999 -2012 catheterization showing occlusion of COLEMAN and FRANCIA grafts, subsequent PCI left main, hypertension, dyslipidemia, COPD squamous cell carcinoma status post thoracotomy with left lower lobe wedge resection and radiation, PAD status post right femoral endart and iliac stenting, history of DVT PE 03/21/2023 Vascular health status: Antiplatelet / Anticoagulation: ASA 81 mg and Eliquis Statin or [id number]: atorvastatin Vascular screening and surveillance: AAA - 08/2023 duplex 3.4 x 3.4 cm PAD - following 08/18/2023 PVR left toe pressure 50 right toe pressure 75 Past Vascular Surgeries: Recent Surgeries this specialty 05/13/2022 (1yr, 9mo) THROMBOENDARTERECTOMY,W/ PATCH GRAFT; ILIOFEMORAL; ENDOVASCULAR REVASCULARIZE PERCUTANEOUS ILIAC ARTERY UNILAT W/TRANSLUMINAL STENT & ANGIOPLASTY; AORTOGRAM ABDOMINAL (Right; Right; Right), INSERTION TEMPORARY INDWELLING BLADDER CATHETER (N/A) Alex Rivas MD; Marsha Blanca MD, Lorne Hutchinson MD - Posted 03/28/2022 (1yr, 11mo) ANGIOGRAM EXTREMITY UNILATERAL RADIOLOGICAL (Right) Alex Rivas MD - Posted MEDICATIONS: LORazepam (ATIVAN) 1 mg tablet Take 1 tablet by mouth three times a day for 90 days. nitroglycerin sublingual (NITROSTAT) 0.4 mg SL tablet Dissolve 1 tablet under the tongue every 5 minutes as needed. predniSONE (DELTASONE) 10 mg tablet Take 1 tablet by mouth once daily. furosemide (LASIX) 20 mg tablet Take 1 tablet by mouth once daily. metoprolol tartrate, short acting, (LOPRESSOR) 25 mg tablet Take 0.5 tablets by mouth two times a day. Take 0.5 tab po bid. albuterol HFA (PROAIR HFA) 90 mcg/actuation inhaler Inhale 2 Puffs as instructed every 4 hours as needed for wheezing/shortness of breath. SPIRIVA RESPIMAT 2.5 mcg/actuation inhaler Inhale 2 Puffs as instructed once daily. collagenase (SANTYL) ointment Apply to affected area once daily. APPLY TO AFFECTED AREA OXYGEN, HOME THERAPY, 5 L/min by Nasal Cannula route continuous. apixaban (ELIQUIS) 5 mg tab(s) Take 1 tablet by mouth two times a day. atorvastatin (LIPITOR) 40 mg tablet Take 1 tablet by mouth once daily. ADVAIR HFA 230-21 mcg/actuation inhaler Inhale 2 Puffs as instructed two times a day. iv contrast (will be provided with radiology test) CT Chest W -Inject, intravenously, once for 1 dose.No IV access, insert saline lock prior to the beginning of sedation, infusion, injection of imaging exam. Discontinue saline lock post exam. If Pt. has a central line or IVAD, may access for administration according to line specific nursing protocol. Once exam is complete flush line and de-accessaccording to line specific nursing protocol in the CT contrast administration guidelines link. ezetimibe (ZETIA) 10 mg tablet Take 1 tablet by mouth once daily. iv contrast (will be provided with radiology test) CT Chest W -Inject, intravenously, once for 1 dose.No IV access, insert saline lock prior to the beginning of sedation, infusion, injection of imaging exam. Discontinue saline lock post exam. If Pt. has a central line or IVAD, may access for administration according to line specific nursing protocol. Once exam is complete flush line and de-accessaccording to line specific nursing protocol in the CT contrast administration guidelines link. acetaminophen 325 mg cap Take 650 mg by mouth every 8 hours as needed. oxyCODONE IR (ROXICODONE) 5 mg immediate release tablet Take 5 mg by mouth four times a day as needed. guaiFENesin (MUCINEX) 600 mg 12 hr tablet Take 1,200 mg by mouth two times a day. DULoxetine (CYMBALTA) 30 mg capsule Take 30 mg by mouth once daily. ondansetron (ZOFRAN) 4 mg tablet 1 tablet as needed. aspirin, enteric coated (ASPIRIN, ENTERIC COATED) 81 mg EC tablet Take 81 mg by mouth once daily. SOCIAL HISTORY: Social History Tobacco Use Smoking status: Former Current packs/day: 0.00 Average packs/day: 2.0 packs/day for 40.0 years (80.0 ttl pk-yrs) Types: Cigarettes Start date: 11/08/1962 Quit date: 05/13/2002 Years since quittin.8 Smokeless tobacco: Never Vaping Use Vaping status: Never Used Substance Use Topics Alcohol use: Not Currently Alcohol/week: 3.0 standard drinks of alcohol Types: 3 Cans of beer per week Comment: light beer Drug use: No PAST MEDICAL HISTORY: PAST MEDICAL HISTORY Diagnosis Date Abdominal aortic aneurysm (AAA) without rupture (HCC) 11/19/2018 Atypical chest pain CAD (coronary artery disease) s/p CABG 1999, PCI w/ stents Chronic respiratory failure (HCC) COPD (chronic obstructive pulmonary disease) (HCC) Hyperlipidemia Hyperlipidemia Hypertension Lung cancer (HCC) Prostate cancer (HCC) Dx Dec 2014, s/p radiation, on hormonal therapy Ulcer of right foot (HCC) 04/30/2022 PAST SURGICAL HISTORY: PAST SURGICAL HISTORY Procedure Laterality Date ANGIOGRAM EXTREMITY COLONOSCOPY N/A 09/29/2023 [facility] COLONOSCOPY N/A 10/07/2023 [facility] EGD W/O [facility] SPEC VARICIES INJ N/A 09/29/2023 [facility] EGD W/O [facility] SPEC VARICIES INJ N/A 10/07/2023 [facility] LUNG BIOPSY Left needle biopsy LUNG SURGERY HX 02/20/20 lt lung nodule removed PAST SURGICAL HISTORY OF TURP PAST SURGICAL HISTORY OF 03/02/1999 triple bypass PAST SURGICAL HISTORY OF Left 09/04/2022 Skin biopsy left upper cheek face PAST SURGICAL HISTORY OF LE vascular ALLERGIES: ALLERGIES Allergen Reactions Imdur [Isosorbide M* Hives Black out and dizziness Targeted ROS Comprehensive system review of systems did not reveal any pertinent positives or negatives except per HPI PHYSICAL EXAM: Focused Physical Exam: BP 125/65 Pulse 42 SpO2 99[5L]% General: WDWN in NAD Pulmonary: Non-labored on 4 L nasal cannula Coronary: Regular rate, no ENIO or JVD Extremities: Normal range of motion, no lower extremity edema, left medial ankle wound 1 cm x 1 cm x 0.2 cm without drainage or malodor DIAGNOSTIC TESTS REVIEWED FOR TODAY'S VISIT: Most recent labs and imaging results IMAGING RESULTS: 03/10/2024 PVR ankle transmet toe IMPRESSION Compared to prior study of 02/17/2024, Severe disease noted, in the left leg, on previous study. RIGHT SIDE Resting right ankle brachial index: 1.93 Right toe brachial index: 0.40 absolute toe pressure 53 mmHg Non-compressible vessels, results called by PVR tracings. Abnormal toe brachial index at rest is evidence of peripheral artery disease. Right ankle: Moderate disease at rest. LEFT SIDE Resting left ankle brachial index: 1.93 Left toe brachial index: 0.15 absolute toe pressure 20 mmHg Non-compressible vessels, results called by PVR tracings. Abnormal toe brachial index at rest is evidence of peripheral artery disease. Left ankle: Moderate disease at rest. 02/17/2024 ultrasound aorta complete AORTA Proximal: PSV: 63 cm/s. EDV: 11 cm/s. 2.92 cm At renal: PSV: 46 cm/s. EDV: 12 cm/s. 2.70 cm x 2.72 cm Mid: PSV: 47 cm/s. EDV: 10 cm/s. 3.38 cm x 3.36 cm Distal: PSV: 52 cm/s. EDV: 15 cm/s. 2.06 cm x 2.04 cm Calcified plaque in the abdominal aorta throughout. RIGHT VESSELS Common iliac origin: PSV: 50 cm/s. EDV: 7 cm/s. Common iliac proximal: PSV: 209 cm/s. EDV: 0 cm/s. Common iliac mid: PSV: 134 cm/s. EDV: 15 cm/s. Common iliac distal: PSV: 118 cm/s. EDV: 0 cm/s. External iliac proximal: PSV: 128 cm/s. EDV: 0 cm/s. External iliac mid: PSV: 161 cm/s. EDV: 0 cm/s. External iliac distal: PSV: 192 cm/s. EDV: 0 cm/s. LEFT VESSELS Common iliac origin: PSV: 39 cm/s. EDV: 9 cm/s. 1.43 cm x 1.44 cm Common iliac proximal: PSV: 48 cm/s. EDV: 8 cm/s. 1.08 cm x 1.12 cm Common iliac mid: PSV: 60 cm/s. EDV: 12 cm/s. 1.23 cm x 1.26 cm Common iliac distal: PSV: 44 cm/s. EDV: 8 cm/s. 1.28 cm x 1.26 cm Internal iliac proximal: PSV: 89 cm/s. EDV: 14 cm/s. 0.57 cm Right common femoral artery proximal PSV: 98 cm/s. EDV: 13 cm/s. Right common femoral artery mid PSV: 44 cm/s. EDV: 11 cm/s. Right common femoral artery distal PSV: 26 cm/s. EDV: 5 cm/s. Right profunda artery proximal PSV: 75 cm/s. EDV: 0 cm/s. Left common femoral artery proximal PSV: 43 cm/s. EDV: 0 cm/s. Left common femoral artery mid PSV: 23 cm/s. EDV: 8 cm/s. Left common femoral artery distal PSV: 27 cm/s. EDV: 8 cm/s. Left profunda artery proximal PSV: 25 cm/s. EDV: 7 cm/s. IMPRESSION Compared to prior study of 08/18/2023, No change in aorta. Velocity shift noted in the right common iliac artery stent. No other significant changes. AORTA Infrarenal abdominal aortic aneurysm measuring 3.4 x 3.4 cm at mid. Bi lobed aneurysm. Aorta plaque noted without evidence of hemodynamically significant stenosis . RIGHT VESSELS Common iliac artery 50-99% stenosis at proximal. Stent noted. External iliac artery is patent . Stent noted. Common femoral artery plaque noted without stensosis. Patch noted. The superficial femoral artery is occluded at origin. Patent profunda artery at proximal. LEFT VESSELS Common iliac artery patent without evidence of aneurysm . Common iliac artery plaque noted without evidence of hemodynamically significant stenosis . External iliac artery is occluded proximal to distal. (reconstitutes distally) Internal iliac artery is patent at proximal. Common femoral artery plaque noted without stenosis. The superficial femoral artery is occluded at origin. Patent profunda artery at proximal. ASSESSMENT AND PLAN: Oswaldo Corley is a 83 year old male seen in follow up for PAD with chronic nonhealing left medial ankle wound which has been largely stable. He denies any lower extremity rest pain. He is largely nonambulatory secondary to severe COPD and is dependent on 4 L nasal cannula at all times. His prognosis for healing given his noninvasive studies is poor. We discussed this as well as his exceedinglyhigh risk for any open surgical intervention given his significant comorbidities. The patient expressed that he did not wish to undergo any major surgical reconstruction at this time. While there are minimally invasive options, my partner Dr. Rivas attempted recannulation of the left iliac and was unsuccessful in the past. Given this and the fact that his wound has remained stable since October, I would recommend continuing observation and local wound care. Consideration of surgical intervention to be discussed if there is any worsening of his wound or if he begins to experience rest pain. We discussed the options for management and all questions answered, Mr. Corley reflected understanding and agreement to the plan as outlined below. - Continue local wound care, possibly a trial of HBO - Continue cardiovascular risk factor modification with blood pressure control and asa/statin therapy as tolerated at the direction of Mei Cummins MD - Follow up in 4 weeks for wound check, sooner if symptoms worsen Betito Mauro MD Vascular Surgery Staff 03/10/2024 documented in this encounterPromed[facility]01-02-2025 [facility] History of Present illness Narrative* Jacy Sunshine LPN - 03/03/2024 3:[address] Viveros, Oswaldo wound was dressed with tray. Patient declined guaze wrap. Band aid was applied. Provider notified. Patient was instructed/educated in its application, wear, and care. All questions were answered, and patient was able to verbalized competence with the necessary skills to utilize the above equipment. Jacy Sunshine LPN * Juan Carlos Viveros - 03/03/2024 3:09 PM EST FOLLOW UP PODIATRIC OFFICE VISIT Chief Complaint: This 83 year old who presents for follow up:left medial leg ulceration. Patient presents to clinic for follow-up left medial leg ulceration Currently applying santyl to the wound PAIN EVALUATION No data found in the last 1 encounters. Hemoglobin A1C Date Value Ref Range Status 06/24/2022 5.0 4.3 - 5.6 % Final Comment: [place] [employer] guidelines indicate that patients with HgbA1c in the range 5.7-6.4% are at increased risk for development of diabetes, and intervention by lifestyle modification may be beneficial. HgbA1c greater or equal to 6.5% is considered diagnostic of diabetes. PCP: Mei Cummins MD PAST MEDICAL HISTORY Diagnosis Date Abdominal aortic aneurysm (AAA) without rupture (HCC) 11/19/2018 Atypical chest pain CAD (coronary artery disease) s/p CABG 1999, PCI w/ stents Chronic respiratory failure (HCC) COPD (chronic obstructive pulmonary disease) (HCC) Hyperlipidemia Hyperlipidemia Hypertension Lung cancer (HCC) Prostate cancer (HCC) Dx Dec 2014, s/p radiation, on hormonal therapy Ulcer of right foot (HCC) 04/30/2022 Current Outpatient Medications Medication Sig LORazepam (ATIVAN) 1 mg tablet Take 1 tablet by mouth three times a day for 90 days. nitroglycerin sublingual (NITROSTAT) 0.4 mg SL tablet Dissolve 1 tablet under the tongue every 5 minutes as needed. predniSONE (DELTASONE) 10 mg tablet Take 1 tablet by mouth once daily. furosemide (LASIX) 20 mg tablet Take 1 tablet by mouth once daily. metoprolol tartrate, short acting, (LOPRESSOR) 25 mg tablet Take 0.5 tablets by mouth two times a day. Take 0.5 tab po bid. albuterol HFA (PROAIR HFA) 90 mcg/actuation inhaler Inhale 2 Puffs as instructed every 4 hours as needed for wheezing/shortness of breath. SPIRIVA RESPIMAT 2.5 mcg/actuation inhaler Inhale 2 Puffs as instructed once daily. collagenase (SANTYL) ointment Apply to affected area once daily. APPLY TO AFFECTED AREA OXYGEN, HOME THERAPY, 5 L/min by Nasal Cannula route continuous. apixaban (ELIQUIS) 5 mg tab(s) Take 1 tablet by mouth two times a day. atorvastatin (LIPITOR) 40 mg tablet Take 1 tablet by mouth once daily. ADVAIR HFA 230-21 mcg/actuation inhaler Inhale 2 Puffs as instructed two times a day. ezetimibe (ZETIA) 10 mg tablet Take 1 tablet by mouth once daily. iv contrast (will be provided with radiology test) CT Chest W -Inject, intravenously, once for 1 dose.No IV access, insert saline lock prior to the beginning of sedation, infusion, injection of imaging exam. Discontinue saline lock post exam. If Pt. has a central line or IVAD, may access for administration according to line specific nursing protocol. Once exam is complete flush line and de-accessaccording to line specific nursing protocol in the CT contrast administration guidelines link. acetaminophen 325 mg cap Take 650 mg by mouth every 8 hours as needed. oxyCODONE IR (ROXICODONE) 5 mg immediate release tablet Take 5 mg by mouth four times a day as needed. guaiFENesin (MUCINEX) 600 mg 12 hr tablet Take 1,200 mg by mouth two times a day. DULoxetine (CYMBALTA) 30 mg capsule Take 30 mg by mouth once daily. ondansetron (ZOFRAN) 4 mg tablet 1 tablet as needed. aspirin, enteric coated (ASPIRIN, ENTERIC COATED) 81 mg EC tablet Take 81 mg by mouth once daily. iv contrast (will be provided with radiology test) CT Chest W -Inject, intravenously, once for 1 dose.No IV access, insert saline lock prior to the beginning of sedation, infusion, injection of imaging exam. Discontinue saline lock post exam. If Pt. has a central line or IVAD, may access for administration according to line specific nursing protocol. Once exam is complete flush line and de-accessaccording to line specific nursing protocol in the CT contrast administration guidelines link. No current facility-administered medications for this visit. ALLERGIES Allergen Reactions Imdur [Isosorbide M* Hives Black out and dizziness PAST SURGICAL HISTORY Procedure Laterality Date ANGIOGRAM EXTREMITY COLONOSCOPY N/A 09/29/2023 [facility] COLONOSCOPY N/A 10/07/2023 [facility] EGD W/O [facility] SPEC VARICIES INJ N/A 09/29/2023 [facility] EGD W/O [facility] SPEC VARICIES INJ N/A 10/07/2023 [facility] LUNG BIOPSY Left needle biopsy LUNG SURGERY HX 02/20/20 lt lung nodule removed PAST SURGICAL HISTORY OF TURP PAST SURGICAL HISTORY OF 03/02/1999 triple bypass PAST SURGICAL HISTORY OF Left 09/04/2022 Skin biopsy left upper cheek face PAST SURGICAL HISTORY OF LE vascular Physical Exam: OBJECTIVE: Constitutional: Pt is a well developed 83 year old male who is alert, oriented, cooperative and in no apparent distress. Eyes: Following during examination. No redness or drainage. Respiratory: RR normal and nonlabored. Even breathing. No evidence of distress. Psychology: Patient is engaged during conversation. Normal affect and mood. Does not appear depressed or anxious. NVSI unchanged from previous visit. Dermatological: Ulceration #1 Location: left medial leg Measurement: 7 mm x 3 mm Base: granular No signs of infection ASSESSMENT: (L98.491) Skin ulcer, limited to breakdown of skin (HCC) (primary encounter diagnosis (I73.9) Peripheral arterial disease (HCC) (I87.2) Venous insufficiency PLAN: Discussed ulceration of left leg Has been using santyl with minimal to no change Will switch to tray I do feel the use of compression would be of benefit but patient has difficult time using compression Follow-up in 3 weeks or sooner if problems were to arise Juan Carlos Viveros DPM documented in this encounterPromedica Memorial Hospital01-02-2025 Instructions* Patient Instructions* Juan Carlos Viveros - 03/03/2024 3:10 PM EST Cleanse wound with saline daily Apply tray to wound daily and secure with guaze. documented in this encounterPromedica Memorial Hospital01-02-2025 NoteL[facility]12-30-2024 Telephone encounter Note* Telephone Encounter - Malu Tavares MA - 02/29/2024 2:59 PM EST Detailed message of below left on Jeremiah's identified and secure VM. Malu Tavares MA [facility]12-30-2024 Miscellaneous Notes* Telephone Encounter - Malu Tavares MA - 02/29/2024 2:59 PM EST Detailed message of below left on Jeremiah's identified and secure VM. Malu Tavares MA * Telephone Encounter - Mei Cummins MD - 02/29/2024 2:43 PM EST Noted; agree and will follow and sign orders Mei Cummins MD * Telephone Encounter - Zen Lopez LPN - 02/29/2024 1:44 PM EST Jeremiah from [facility] Home Health calling will resume residential visits for the patient next week, onevisit weekly for 3 weeks. He had been in [facility] for COPD exacerbation. Patient is refusing PT/OT evals. documented in this encounterPromedica Memorial Hospital12-30-2024 Telephone encounter Note * Telephone Encounter - Mei Cummins MD - 02/29/2024 2:43 PM EST Noted; agree and will follow and sign orders Mei Cummins MD [facility]12-30-2024 Telephone encounter Note* Telephone Encounter - Zen Lopez LPN - 02/29/2024 1:44 PM EST Jeremiah from [facility] Home Health calling will resume residential visits for the patient next week, onevisit weekly for 3 weeks. He had been in [facility] for COPD exacerbation. Patient is refusing PT/OT evals. [facility]12-30-[facility] Telephone encounter Note* Telephone Encounter - Twila Weston APRN.CNP - 02/29/2024 7:55 AM EST The following approved medication requests have been transmitted electronically. Requested Prescriptions Signed Prescriptions Disp Refills LORazepam (ATIVAN) 1 mg tablet 90 tablet 2 Sig: Take 1 tablet by mouth three times a day for 90 days. Authorizing Provider: TWILA WESTON APRN.CNP PDMP website checked and validated. All prescriptions have been APPROPRIATELY filled. No suspiciousactivity was identified. 02/29/2024 by Twila Weston APRN.CNP [facility]12-30-2024 Miscellaneous Notes* Telephone Encounter - Twila Weston APRN.CNP - 02/29/2024 7:55 AM EST The following approved medication requests have been transmitted electronically. Requested Prescriptions Signed Prescriptions Disp Refills LORazepam (ATIVAN) 1 mg tablet 90 tablet 2 Sig: Take 1 tablet by mouth three times a day for 90 days. Authorizing Provider: TWILA WESTON APRN.CNP PDMP website checked and validated. All prescriptions have been APPROPRIATELY filled. No suspiciousactivity was identified. 02/29/2024 by Twlia Weston APRN.LEGAL STENOGRAPHER * Telephone Encounter - Adriana Ohara LPN - 02/29/2024 7:21 AM EST Prescription Refill Information The patient has been identified by name and date of : Yes Caregiver verified no other encounters exist for this prescription request: Yes Caregiver confirmed with patient/requestor that no other refills are due, in the near future, with this provider at this time: Yes The last office visit in the department: 12/23/2023 Does the patient have a future office visit with this provider/department: Yes Requested Prescriptions Pending Prescriptions Disp Refills LORazepam (ATIVAN) 1 mg tablet 90 tablet 2 Sig: Take 1 tablet by mouth three times a day for 90 days. Adriana Ohara LPN February 29, 2024 7:21 AM documented in this encounterPromedica Memorial Hospital12-30-2024 Telephone encounter Note * Telephone Encounter - Adriana Ohara LPN - 02/29/2024 7:21 AM EST Prescription Refill Information The patient has been identified by name and date of : Yes Caregiver verified no other encounters exist for this prescription request: Yes Caregiver confirmed with patient/requestor that no other refills are due, in the near future, with this provider at this time: Yes The last office visit in the department: 12/23/2023 Does the patient have a future office visit with this provider/department: Yes Requested Prescriptions Pending Prescriptions Disp Refills LORazepam (ATIVAN) 1 mg tablet 90 tablet 2 Sig: Take 1 tablet by mouth three times a day for 90 days. Adriana Ohara LPN February 29, 2024 7:21 AM [facility]12-23-2024 [facility]12-20-2024 Evaluation note* Diagnosis Onset Date Resolution Status Admit Date Hypoxia acute February 19, 2024 6:04pm COPD exacerbation inactive [facility] 2023 6:04pm Chronic ulcer of left ankle acute March 30, 2024 1:51pm History of lung cancer acute [facility] 2024 1:51pm History of peripheral arteri al disease acute March 30 1:51pm COPD (chronic obstructive pulmonary disease) chronic March 30, 2024 1:51pm Chronic ulcer of left ankle acute April 27, 2024 2:00pm History of lung cancer acute Fe bruary 2024 2:00pm History of peripheral arteri al disease acute April 27, 2 025 2:00pm COPD (chronic obstructive pulmonary disease) chronic April 2:00pm Chronic ulcer of left ankle acute May 11, 2024 1:55pm History of lung cancer acute [facility] 2024 1:55pm History of peripheral arteri al disease acute May 11, 2024 1:55pm COPD (chronic obstructive pulmonary disease) chronic May 11, 2 025 1:55pm Acidosis, lactic resolved May 222024 3:14pm Acute exacerbation of chroni c obstructive pulmonary disease resolved [facility] 2024 3:14pm Chronic respiratory failure with hypoxia and hypercapnia inactive [facility] 2024 3:14pm ABLA (acute blood loss anemia) resol faisal June 03, 2024 5:32pm Acute lower gastrointestinal bleeding resolved June 03, 2024 5:32pm 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 acute June 08, 2 025 10:30am Other specified peripheral vascular diseases acute June 08 10:30am Anemia acute June 08 2:55pm Angiodysplasia of gastrointestinal tract acute May 2:55pm [facility] Work Phone: 1(794) 505-858712-20-2024 Evaluation note* Diagnosis Onset Date Resolution Status Admit Date Hypoxia acute February 19, 2024 6:04pm COPD exacerbation inactive [facility] 2023 6:04pm Chronic ulcer of left ankle acute March 30, 2024 1:51pm History of lung cancer acute [facility] 2024 1:51pm History of peripheral arteri al disease acute March 30 1:51pm COPD (chronic obstructive pulmonary disease) chronic March 30, 2024 1:51pm Chronic ulcer of left ankle acute April 27, 2024 2:00pm History of lung cancer acute [facility] 2024 2:00pm History of peripheral arteri al disease acute April 27, 025 2:00pm COPD (chronic obstructive pulmonary disease) chronic April 2:00pm Chronic ulcer of left ankle acute May 11, 2024 1:55pm History of lung cancer acute [facility] 2024 1:55pm History of peripheral arteri al disease acute May 11, 2024 1:55pm COPD (chronic obstructive pulmonary disease) chronic May 11, 025 1:55pm Acidosis, lactic resolved May 222024 3:14pm Acute exacerbation of chroni c obstructive pulmonary disease resolved [facility] 2024 3:14pm Chronic respiratory failure with hypoxia and hypercapnia inactive [facility] 2024 3:14pm ABLA (acute blood loss anemia) resol faisal June 03, 2024 5:32pm Acute lower gastrointestinal bleeding resolved June 03, 2024 5:32pm Anemia acute June 08 2:55pm Angiodysplasia of gastrointestinal tract acute May 2:55pm 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 acute June 15, 2024 11:45am Other specified peripheral vascular diseases acute June 15 11:45am [facility] Work Phone: 1(144) 204-689312-19-2024 Telephone encounter Note* Telephone Encounter - Mei Cummins MD - 02/18/2024 2:40 PM EST Noted and agree Mei Cummins MD [facility]12-19-2024 Miscellaneous Notes* Telephone Encounter - Mei Cummins MD - 02/18/2024 2:40 PM EST Noted and agree Mei Cummins MD * Telephone Encounter - Naty Ley RN - 02/18/2024 1:45 PM EST Jeremiah from [facility] calls and states that he re-certified patient for wound care. Patient does not want visits next week due to the holiday but starting on 02/28/2024 [facility] will visit patient 1 time a week for 4 weeks for wound care to ankle. No call back needed. Naty Ley RN documented in this encounterPromedica Memorial Hospital12-19-2024 Telephone encounter Note * Telephone Encounter - Naty Ley RN - 02/18/2024 1:45 PM EST Jeremiah from [facility] calls and states that he re-certified patient for wound care. Patient does not want visits next week due to the holiday but starting on 02/28/2024 [facility] will visit patient 1 time a week for 4 weeks for wound care to ankle. No call back needed. Naty Ley RN [facility]12-17-2024 Instructions* Patient Instructions* Juan Carlos Viveros - 02/16/2024 11:47 AM EST Continue with santyl Would recommend lightly applied néstor wrap documented in this encounterPromedica Memorial Hospital12-17-2024 NoteL[facility]12-17-2024 History of Present illness Narrative* Juan Carlos Viveros - 02/16/2024 11:41 AM EST FOLLOW UP PODIATRIC OFFICE VISIT Chief Complaint: This 83 year old who presents for follow up:left foot ulceration Patient presents to clinic for follow-up left foot ulceration Continues with santyl Has been seen by vascular surgery. PAIN EVALUATION 02/16/2024 1109 Pain Level: 4 Pain Location: Ankle-Left Description: Sore Duration Units: Weeks Frequency: Intermittent Intervention/Comfort measure: Relaxation;Reposition;Medication Hemoglobin A1C Date Value Ref Range Status 06/24/2022 5.0 4.3 - 5.6 % Final Comment: [place] [employer] guidelines indicate that patients with HgbA1c in the range 5.7-6.4% are at increased risk for development of diabetes, and intervention by lifestyle modification may be beneficial. HgbA1c greater or equal to 6.5% is considered diagnostic of diabetes. PCP: Mei Cummins MD PAST MEDICAL HISTORY Diagnosis Date Abdominal aortic aneurysm (AAA) without rupture (HCC) 11/19/2018 Atypical chest pain CAD (coronary artery disease) s/p CABG 1999, PCI w/ stents Chronic respiratory failure (HCC) COPD (chronic obstructive pulmonary disease) (HCC) Hyperlipidemia Hyperlipidemia Hypertension Lung cancer (HCC) Prostate cancer (HCC) Dx Dec 2014, s/p radiation, on hormonal therapy Ulcer of right foot (HCC) 04/30/2022 Current Outpatient Medications Medication Sig nitroglycerin sublingual (NITROSTAT) 0.4 mg SL tablet Dissolve 1 tablet under the tongue every 5 minutes as needed. predniSONE (DELTASONE) 10 mg tablet Take 1 tablet by mouth once daily. furosemide (LASIX) 20 mg tablet Take 1 tablet by mouth once daily. metoprolol tartrate, short acting, (LOPRESSOR) 25 mg tablet Take 0.5 tablets by mouth two times a day. Take 0.5 tab po bid. albuterol HFA (PROAIR HFA) 90 mcg/actuation inhaler Inhale 2 Puffs as instructed every 4 hours as needed for wheezing/shortness of breath. SPIRIVA RESPIMAT 2.5 mcg/actuation inhaler Inhale 2 Puffs as instructed once daily. collagenase (SANTYL) ointment Apply to affected area once daily. APPLY TO AFFECTED AREA OXYGEN, HOME THERAPY, 5 L/min by Nasal Cannula route continuous. apixaban (ELIQUIS) 5 mg tab(s) Take 1 tablet by mouth two times a day. atorvastatin (LIPITOR) 40 mg tablet Take 1 tablet by mouth once daily. ADVAIR HFA 230-21 mcg/actuation inhaler Inhale 2 Puffs as instructed two times a day. LORazepam (ATIVAN) 1 mg tablet Take 1 tablet by mouth three times a day for 90 days. iv contrast (will be provided with radiology test) CT Chest W -Inject, intravenously, once for 1 dose.No IV access, insert saline lock prior to the beginning of sedation, infusion, injection of imaging exam. Discontinue saline lock post exam. If Pt. has a central line or IVAD, may access for administration according to line specific nursing protocol. Once exam is complete flush line and de-accessaccording to line specific nursing protocol in the CT contrast administration guidelines link. ezetimibe (ZETIA) 10 mg tablet Take 1 tablet by mouth once daily. iv contrast (will be provided with radiology test) CT Chest W -Inject, intravenously, once for 1 dose.No IV access, insert saline lock prior to the beginning of sedation, infusion, injection of imaging exam. Discontinue saline lock post exam. If Pt. has a central line or IVAD, may access for administration according to line specific nursing protocol. Once exam is complete flush line and de-accessaccording to line specific nursing protocol in the CT contrast administration guidelines link. acetaminophen 325 mg cap Take 650 mg by mouth every 8 hours as needed. oxyCODONE IR (ROXICODONE) 5 mg immediate release tablet Take 5 mg by mouth four times a day as needed. guaiFENesin (MUCINEX) 600 mg 12 hr tablet Take 1,200 mg by mouth two times a day. DULoxetine (CYMBALTA) 30 mg capsule Take 30 mg by mouth once daily. ondansetron (ZOFRAN) 4 mg tablet 1 tablet as needed. aspirin, enteric coated (ASPIRIN, ENTERIC COATED) 81 mg EC tablet Take 81 mg by mouth once daily. No current facility-administered medications for this visit. ALLERGIES Allergen Reactions Imdur [Isosorbide M* Hives Black out and dizziness PAST SURGICAL HISTORY Procedure Laterality Date ANGIOGRAM EXTREMITY COLONOSCOPY N/A 09/29/2023 [facility] COLONOSCOPY N/A 10/07/2023 [facility] EGD W/O [facility] SPEC VARICIES INJ N/A 09/29/2023 [facility] EGD W/O [facility] SPEC VARICIES INJ N/A 10/07/2023 [facility] LUNG BIOPSY Left needle biopsy LUNG SURGERY HX 02/20/20 lt lung nodule removed PAST SURGICAL HISTORY OF TURP PAST SURGICAL HISTORY OF 03/02/1999 triple bypass PAST SURGICAL HISTORY OF Left 09/04/2022 Skin biopsy left upper cheek face PAST SURGICAL HISTORY OF LE vascular Physical Exam: OBJECTIVE: Constitutional: Pt is a well developed 83 year old male who is alert, oriented, cooperative and in no apparent distress. Eyes: Following during examination. No redness or drainage. Respiratory: RR normal and nonlabored. Even breathing. No evidence of distress. Psychology: Patient is engaged during conversation. Normal affect and mood. Does not appear depressed or anxious. NVSI unchanged from previous visit. Dermatological: Ulceratoin #1 Location: left medial ankle Measurement 5 mm x 4 mm x 1 mm No signs of infection Musculoskeletal/Orthopaedic: Patient has no pain to palpation of left medial ankle/foot ASSESSMENT: (L98.491) Skin ulcer, limited to breakdown of skin (HCC) (primary encounter diagnosis) (I73.9) Peripheral arterial disease (HCC) (I87.2) Venous insufficiency PLAN: Discussed ulceration of left medial ankle. No signs of infection Suspect slow healing is related to combination of PAD and venous insufficiency. Await further vascular work-up Continue with santyl and lightly applied compression via néstor wrap Follow-up in 1 month Offered referral to wound center He elected to continue with current care here Juan Carlos Viveros DPM * Jacy Sunshine LPN - 02/16/2024 11:09 AM EST AMB ROOMING INTAKE FLOWSHEET DATA Pain Pain Level: 4 Pain Location: Ankle-Left Description: Sore Duration Units: Weeks Frequency: Intermittent Intervention/Comfort measure: Relaxation, Reposition, Medication Patient presents with: Left Ankle - Established Patient, Pain, Ulcer Jacy Sunshine LPN documented in this encounterPromedica Memorial Hospital12-17-2024 NoteL[facility]12-13-2024 Telephone encounter Note* Telephone Encounter - Mei Cummins MD - 02/12/2024 3:40 PM EST OK to refill as ordered Mei Cummins MD [facility]12-13-2024 Miscellaneous Notes* Telephone Encounter - Mei Cummins MD - 02/12/2024 3:40 PM EST OK to refill as ordered Mei Cummins MD * Telephone Encounter - Malu Tavares MA - 02/12/2024 3:08 PM EST Prescription Refill Information The patient has been identified by name and date of : Yes Caregiver verified no other encounters exist for this prescription request: Yes Caregiver confirmed with patient/requestor that no other refills are due, in the near future, with this provider at this time: No The last office visit in the department: 12/23/23 Does the patient have a future office visit with this provider/department: Yes Requested Prescriptions Pending Prescriptions Disp Refills nitroglycerin sublingual (NITROSTAT) 0.4 mg SL tablet 25 tablet 1 Sig: Dissolve 1 tablet under the tongue every 5 minutes as needed. Malu Tavares MA February 12, 2024 3:08 PM documented in [facility] Telephone encounter Note * Telephone Encounter - Malu Tavares MA - 02/12/2024 3:08 PM EST Prescription Refill Information The patient has been identified by name and date of : Yes Caregiver verified no other encounters exist for this prescription request: Yes Caregiver confirmed with patient/requestor that no other refills are due, in the near future, with this provider at this time: No The last office visit in the department: 12/23/23 Does the patient have a future office visit with this provider/department: Yes Requested Prescriptions Pending Prescriptions Disp Refills nitroglycerin sublingual (NITROSTAT) 0.4 mg SL tablet 25 tablet 1 Sig: Dissolve 1 tablet under the tongue every 5 minutes as needed. Malu Tavares MA February 12, 2024 3:08 PM [facility]12[facility]12[facility] Evaluation note* Diagnosis Onset Date Resolution Status Admit Date Acute anemia acute January 12:24pm Chronic peptic ulcer with bleeding chronic February 10, 024 12:24pm Hypoxia acute February 19, 2024 6:04pm COPD exacerbation inactive [facility] 2023 6:04pm Chronic ulcer of left ankle acute March 30, 2024 1:51pm History of lung cancer acute [facility] 2024 1:51pm History of peripheral arterial disease acute March 30, 025 1:51pm COPD (chronic obstructive pulmonary disease) chronic March 30, 2024 1:51pm Chronic ulcer of left ankle acute April 27, 2024 2:00pm History of lung cancer acute [facility] 2:00pm History of peripheral arterial disease acute April 27, 2024 2:00pm COPD (chronic obstructive pulmonary disease) chronic April 2:00pm Chronic ulcer of left ankle acute May 11, 2024 1:55pm History of lung cancer acute [facility] 2024 1:55pm History of peripheral arterial disease acute May 11 1:55pm COPD (chronic obstructive pulmonary disease) chronic May 11 025 1:55pm Acidosis, lactic acute May 222024 3:14pm Acute exacerbation of chroni c obstructive pulmonary disease chronic [facility] 2024 3:14pm Chronic respiratory failure with hypoxia and hypercapnia chronic [facility] 2024 3:14pm [facility] Work Phone: 1(962) 701-643612-12-2024 Evaluation note* Diagnosis Onset Date Resolution Status Admit Date Acute anemia acute January 12:24pm Chronic peptic ulcer with bleeding chronic February 10, 2 024 12:24pm Hypoxia acute February 19, 2024 6:04pm COPD exacerbation inactive [facility] 2023 6:04pm Chronic ulcer of left ankle acute March 30, 2024 1:51pm History of lung cancer acute [facility] 2024 1:51pm History of peripheral arteri al disease acute March 30 1:51pm COPD (chronic obstructive pulmonary disease) chronic March 30, 2024 1:51pm Chronic ulcer of left ankle acute April 27, 2024 2:00pm History of lung cancer acute [facility] 2024 2:00pm History of peripheral arteri al disease acute April 27, 2 025 2:00pm COPD (chronic obstructive pulmonary disease) chronic April 2:00pm Chronic ulcer of left ankle acute May 11, 2024 1:55pm History of lung cancer acute [facility] 2024 1:55pm History of peripheral arteri al disease acute May 11, 2024 1:55pm COPD (chronic obstructive pulmonary disease) chronic May 11 025 1:55pm Acidosis, lactic resolved May 222024 3:14pm Acute exacerbation of chroni c obstructive pulmonary disease resolved [facility] 2024 3:14pm Chronic respiratory failure with hypoxia and hypercapnia inactive [facility] 2024 3:14pm 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 acute June 01 025 11:41am Other specified peripheral vascular diseases acute June 01 11:41am Acute lower gastrointestinal bleeding acute June 03, 2024 5:32pm [facility] Work Phone: 1(857) 302-267512-12-2024 Evaluation note* Diagnosis Onset Date Resolution Status Admit Date Acute anemia acute January 12:24pm Chronic peptic ulcer with bleeding chronic February 10 024 12:24pm Hypoxia acute February 19, 2024 6:04pm COPD exacerbation inactive [facility] 2023 6:04pm Chronic ulcer of left ankle acute March 30, 2024 1:51pm History of lung cancer acute [facility] 2024 1:51pm History of peripheral arteri al disease acute March 30 1:51pm COPD (chronic obstructive pulmonary disease) chronic March 30, 2024 1:51pm Chronic ulcer of left ankle acute April 27, 2024 2:00pm History of lung cancer acute [facility] 2024 2:00pm History of peripheral arteri al disease acute April 27 025 2:00pm COPD (chronic obstructive pulmonary disease) chronic April 2:00pm Chronic ulcer of left ankle acute May 11, 2024 1:55pm History of lung cancer acute [facility] 2024 1:55pm History of peripheral arteri al disease acute May 11, 2024 1:55pm COPD (chronic obstructive pulmonary disease) chronic May 11 2 025 1:55pm Acidosis, lactic resolved May 222024 3:14pm Acute exacerbation of chroni c obstructive pulmonary disease resolved [facility] 2024 3:14pm Chronic respiratory failure with hypoxia and hypercapnia inactive [facility] 2024 3:14pm 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 acute June 01, 025 11:41am Other specified peripheral vascular diseases acute June 01 11:41am ABLA (acute blood loss anemia) acute June 03, 2024 5:32pm Acute lower gastrointestinal bleeding acute June 03, 2024 5:32pm [facility] Work Phone: 1(271) 323-903612-09-2024 Telephone encounter Note* Telephone Encounter - Tyrell Lamar LPN - 02/08/2024 12:01 PM EST JOSE M: 01/19/24 Patient phones requesting refills as follows: Requested Prescriptions Pending Prescriptions Disp Refills predniSONE (DELTASONE) 10 mg tablet 30 tablet 5 Sig: Take 1 tablet by mouth once daily. Please review and advise. Tyrell Lamar LPN [facility]12-09-2024 Miscellaneous Notes* Telephone Encounter - Tyrell Lamar LPN - 02/08/2024 12:01 PM EST JOSE M: 01/19/24 Patient phones requesting refills as follows: Requested Prescriptions Pending Prescriptions Disp Refills predniSONE (DELTASONE) 10 mg tablet 30 tablet 5 Sig: Take 1 tablet by mouth once daily. Please review and advise. Tyrell Lamar LPN documented in this encounterPromedica [facility]12-06-2024 [facility] History of Present illness Narrative* Betito Mauro MD - 02/05/2024 11:24 AM EST Images from the original note were not included. Surgery/Procedure Date: 05/13/2022 Surgeon(s)/Proceduralist(s) and Mathematical Engineer(s): Surgeon(s) and Role: Panel 1: * Alex Rivas MD - Primary Procedure(s): Right ileofemoral and deep femoral endarterectomy with patch angioplasty Right SFA eversion endarterectomy Right common and external iliac artery stent (two 10x60 Absolute Pro nitinol stents. ) Aortogram, partial right leg diagnostic angiography Surgery/Procedure Date: 03/28/2022 Surgeon(s)/Proceduralist(s) and Mathematical Engineer(s): Surgeon(s) and Role: * Alex Rivas MD - Primary INTERVENTIONAL PROCEDURE: Ultrasound-guided bilateral common femoral access Left common femoral artery catheterization and diagnostic angiography via left sheath- 94639 Aortic catheterization via right common femoral artery -[id number] Aortogram with right lower extremity angiogram [id number], [id number] [facility] ESTABLISHED CLINIC VISIT Oswaldo Corley [id number] HISTORY OF PRESENT ILLNESS: Mr. Corley is a 83 year old male seen in clinic today for follow up for PAD with stable non-healingL medial ankle wound. Known left external iliac and SFA occlusions. Medical history is significant for remote CABG x 3 in 1999 -2012 catheterization showing occlusion of COLEMAN and FRANCIA grafts, subsequent PCI left main, hypertension, dyslipidemia, COPD squamous cell carcinoma status post thoracotomy with left lower lobe wedge resection and radiation, PAD status post right femoral endart and iliac stenting, history of DVT PE 03/21/2023 Vascular health status: Antiplatelet / Anticoagulation: ASA 81 mg and Eliquis Statin or [id number]: atorvastatin Vascular screening and surveillance: AAA - 08/2023 duplex 3.4 x 3.4 cm PAD - following 08/18/2023 PVR left toe pressure 50 right toe pressure 75 Past Vascular Surgeries: Recent Surgeries this specialty 05/13/2022 (1yr, 8mo) THROMBOENDARTERECTOMY,W/ PATCH GRAFT; ILIOFEMORAL; ENDOVASCULAR REVASCULARIZE PERCUTANEOUS ILIAC ARTERY UNILAT W/TRANSLUMINAL STENT & ANGIOPLASTY; AORTOGRAM ABDOMINAL (Right; Right; Right), INSERTION TEMPORARY INDWELLING BLADDER CATHETER (N/A) Alex Rivas MD; Marsha Blanca MD, Lorne Hutchinson MD - Posted 03/28/2022 (1yr, 10mo) ANGIOGRAM EXTREMITY UNILATERAL RADIOLOGICAL (Right) Alex Rivas MD - Posted MEDICATIONS: metoprolol tartrate, short acting, (LOPRESSOR) 25 mg tablet Take 0.5 tablets by mouth two times a day. Take 0.5 tab po bid. albuterol HFA (PROAIR HFA) 90 mcg/actuation inhaler Inhale 2 Puffs as instructed every 4 hours as needed for wheezing/shortness of breath. SPIRIVA RESPIMAT 2.5 mcg/actuation inhaler Inhale 2 Puffs as instructed once daily. collagenase (SANTYL) ointment Apply to affected area once daily. APPLY TO AFFECTED AREA OXYGEN, HOME THERAPY, 5 L/min by Nasal Cannula route continuous. apixaban (ELIQUIS) 5 mg tab(s) Take 1 tablet by mouth two times a day. atorvastatin (LIPITOR) 40 mg tablet Take 1 tablet by mouth once daily. ADVAIR HFA 230-21 mcg/actuation inhaler Inhale 2 Puffs as instructed two times a day. iv contrast (will be provided with radiology test) CT Chest W -Inject, intravenously, once for 1 dose.No IV access, insert saline lock prior to the beginning of sedation, infusion, injection of imaging exam. Discontinue saline lock post exam. If Pt. has a central line or IVAD, may access for administration according to line specific nursing protocol. Once exam is complete flush line and de-accessaccording to line specific nursing protocol in the CT contrast administration guidelines link. ezetimibe (ZETIA) 10 mg tablet Take 1 tablet by mouth once daily. iv contrast (will be provided with radiology test) CT Chest W -Inject, intravenously, once for 1 dose.No IV access, insert saline lock prior to the beginning of sedation, infusion, injection of imaging exam. Discontinue saline lock post exam. If Pt. has a central line or IVAD, may access for administration according to line specific nursing protocol. Once exam is complete flush line and de-accessaccording to line specific nursing protocol in the CT contrast administration guidelines link. nitroglycerin sublingual (NITROSTAT) 0.4 mg SL tablet Dissolve 1 tablet under the tongue every 5 minutes as needed. acetaminophen 325 mg cap Take 650 mg by mouth every 8 hours as needed. oxyCODONE IR (ROXICODONE) 5 mg immediate release tablet Take 5 mg by mouth four times a day as needed. guaiFENesin (MUCINEX) 600 mg 12 hr tablet Take 1,200 mg by mouth two times a day. DULoxetine (CYMBALTA) 30 mg capsule Take 30 mg by mouth once daily. ondansetron (ZOFRAN) 4 mg tablet 1 tablet as needed. aspirin, enteric coated (ASPIRIN, ENTERIC COATED) 81 mg EC tablet Take 81 mg by mouth once daily. LORazepam (ATIVAN) 1 mg tablet Take 1 tablet by mouth three times a day for 90 days. SOCIAL HISTORY: Social History Tobacco Use Smoking status: Former Current packs/day: 0.00 Average packs/day: 2.0 packs/day for 40.0 years (80.0 ttl pk-yrs) Types: Cigarettes Start date: 11/08/1962 Quit date: 05/13/2002 Years since quittin.7 Smokeless tobacco: Never Vaping Use Vaping status: Never Used Substance Use Topics Alcohol use: Not Currently Alcohol/week: 3.0 standard drinks of alcohol Types: 3 Cans of beer per week Comment: light beer Drug use: No PAST MEDICAL HISTORY: PAST MEDICAL HISTORY Diagnosis Date Abdominal aortic aneurysm (AAA) without rupture (HCC) 11/19/2018 Atypical chest pain CAD (coronary artery disease) s/p CABG 1999, PCI w/ stents Chronic respiratory failure (HCC) COPD (chronic obstructive pulmonary disease) (HCC) Hyperlipidemia Hyperlipidemia Hypertension Lung cancer (HCC) Prostate cancer (HCC) Dx Dec 2014, s/p radiation, on hormonal therapy Ulcer of right foot (HCC) 04/30/2022 PAST SURGICAL HISTORY: PAST SURGICAL HISTORY Procedure Laterality Date ANGIOGRAM EXTREMITY COLONOSCOPY N/A 09/29/2023 [facility] COLONOSCOPY N/A 10/07/2023 [facility] EGD W/O [facility] SPEC VARICIES INJ N/A 09/29/2023 [facility] EGD W/O [facility] SPEC VARICIES INJ N/A 10/07/2023 [facility] LUNG BIOPSY Left needle biopsy LUNG SURGERY HX 02/20/20 lt lung nodule removed PAST SURGICAL HISTORY OF TURP PAST SURGICAL HISTORY OF 03/02/1999 triple bypass PAST SURGICAL HISTORY OF Left 09/04/2022 Skin biopsy left upper cheek face PAST SURGICAL HISTORY OF LE vascular ALLERGIES: ALLERGIES Allergen Reactions Imdur [Isosorbide M* Hives Black out and dizziness Targeted ROS Comprehensive system review of systems did not reveal any pertinent positives or negatives except per HPI PHYSICAL EXAM: Focused Physical Exam: BP 144/79 Pulse 72 SpO2 96[5L]% General: WDWN in NAD Pulmonary: Non-labored on RA Coronary: Regular rate, no ENIO or JVD Extremities: Normal range of motion, small punctate R ankle wound, fibrinous tissue base, no s/s ofacute infection Vascular: 2+ brachial, radial, R femoral, nonpalpable left femoral DIAGNOSTIC TESTS REVIEWED FOR TODAY'S VISIT: Most recent labs and imaging results IMAGING RESULTS: CT abdomen pelvis lower extremity 02/03/2024 Calcification of the aorta with bilobed infrarenal AAA with maximal diameter 3 x 3 cm Patent bilateral renal arteries Calcification of the celiac and SMA origin without severe stenosis Patent LAURA Heavily calcified bilateral iliac segment with patent right iliac stents and femoral repair with SFA occlusion patent profunda on the Patent common left iliac with moderate stenosis patent hypogastric complete occlusion of the left external iliac with reconstitution of the common femoral SFA occlusion with patent profunda Reconstitution of the bilateral popliteals with heavy calcification at the knee diffuse tibial disease bilaterally ASSESSMENT AND PLAN: Oswaldo Corley is a 83 year old male seen in follow up for PAD status post right iliofemoral revascularization in April 2022. Most recent imaging showing intact repair with patent stents. He does report a left medial ankle wound which he reports has been stable over the past 2 months. No LE rest pain. We discussed the options for management and all questions answered, Mr. Corley reflected understanding and agreement to the plan as outlined below. - Will plan for repeat noninvasive imaging with return to clinic in 1 month for re-evaluation - Continue cardiovascular risk factor modification with blood pressure control and asa/statin therapy as tolerated at the direction of MD Betito Tse MD Vascular Surgery Staff 02/05/2024 documented in this encounterPromedica [facility]12-04-2024 History of Present illness Narrative* Radha Lion, KATT - 02/03/2024 2:30 PM EST Radiology Service Progress Note PATIENT NAME: Oswaldo Corley DATE OF SERVICE: February 03, 2024 TIME: 2:45 PM PATIENT IDENTITY VERIFICATION COMPLETED USING TWO (2) IDENTIFIERS: Name and Date of confirmedby patient verbally and Name and Date of confirmed by identification band. FALL SCREENING: Has the patient had 2 falls in the last year or 1 fall with injury or currently using an Ambulatory Assistive Device (Walker, Cane, Wheelchair, Crutches, etc.)? No PATIENT GENDER DATA: Male PATIENT RELEVANT IMPLANT DATA REVIEWED: Not Applicable PATIENT PRESENTS WITH AN IMPLANTABLE OR ATTACHED TOWER HELPER: No RADIOLOGY DEPARTMENT: CT; Exam(s) Completed: CTA Aorta/leg runoff PERIPHERAL IV DATA: Site assessment: Clean,Dry and Intact, Site disposition Discontinued SIGNED BY: KATT Bahena February 03, 2024 2:45 PM documented in this encounterPromedica [facility] Hospital12-04-2024 Nurse Note* Elmira Mendez RN - 02/03/2024 2:30 PM EST Radiology Service Progress Note DATE OF SERVICE: February 03, 2024 TIME: 2:40 PM PATIENT WEIGHT: 178LBS PATIENT IDENTITY VERIFICATION COMPLETED USING TWO (2) STANDARD IDENTIFIERS: Name and Date of confirmed by patient verbally and Name and Date of confirmed by identification band. FALL SCREENING: Has the patient had 2 falls in the last year or 1 fall with injury or currently using an Ambulatory Assistive Device (Walker, Cane, Wheelchair, Crutches, etc.)? Yes, Patient High Riskfor Falls What interventions were put in place to prevent falls during this visit? Instructed Patient to Callfor Help if Needed and Patient Refused Interventions/Assistance PATIENT GENDER DATA: Male ALLERGIES: Reviewed and unchanged CONTRAST ALLERGY: No EXAM: CT -CONTRAST INDUCED NEPHROPATHY RISK FACTORS: Patient age > 60 years CREATININE: Creatinine Date Value Ref Range Status 02/01/2024 0.87 0.73 - 1.22 mg/dL Final 11/13/2023 0.61 (L) 0.73 - 1.22 mg/dL Final 07/30/2023 0.90 0.73 - 1.22 mg/dL Final Estimated Glomerular Filtration Rate Date Value Ref Range Status 02/01/2024 87 >=60 mL/min/1.73m Final Comment: Estimated Glomerular Filtration Rate (eGFR) is calculated using the 2020 CKD-EPI creatinine equation. This equation utilizes serum creatinine, sex, and age as parameters. The creatinine assay has traceable calibration to isotope dilution- mass spectrometry. Refer to KDIGO guidelines for clinical interpretation. In patients with unstable renal function, e.g. those with acute kidney injury, the eGFRmay not accurately reflect actual GFR. eGFR- Date Value Ref Range Status 04/23/2021 >60 Final P.O.C.T. RESULTS: N/A February 03, 2024 TREATMENT: N/A IV SITE: Ambulatory: A peripheral IV was started in the Left forearm with a Angio cath: 20 gauge. IV SITE APPEARANCE: Clean,Dry and Intact SIGNATURE: Elmira Mendez RN PATIENT NAME: Oswaldo Colrey DATE: February 03, 2024 TIME: 2:40 PM [facility]12-[facility] Nurse Note* Elmira Mendez RN - 02/03/2024 2:30 PM EST Radiology Service Progress Note DATE OF SERVICE: February 03, 2024 TIME: 2:40 PM PATIENT WEIGHT: 178LBS PATIENT IDENTITY VERIFICATION COMPLETED USING TWO (2) STANDARD IDENTIFIERS: Name and Date of confirmed by patient verbally and Name and Date of confirmed by identification band. FALL SCREENING: Has the patient had 2 falls in the last year or 1 fall with injury or currently using an Ambulatory Assistive Device (Walker, Cane, Wheelchair, Crutches, etc.)? Yes, Patient High Riskfor Falls What interventions were put in place to prevent falls during this visit? Instructed Patient to Callfor Help if Needed and Patient Refused Interventions/Assistance PATIENT GENDER DATA: Male ALLERGIES: Reviewed and unchanged CONTRAST ALLERGY: No EXAM: CT -CONTRAST INDUCED NEPHROPATHY RISK FACTORS: Patient age > 60 years CREATININE: Creatinine Date Value Ref Range Status 02/01/2024 0.87 0.73 - 1.22 mg/dL Final 11/13/2023 0.61 (L) 0.73 - 1.22 mg/dL Final 07/30/2023 0.90 0.73 - 1.22 mg/dL Final Estimated Glomerular Filtration Rate Date Value Ref Range Status 02/01/2024 87 >=60 mL/min/1.73m Final Comment: Estimated Glomerular Filtration Rate (eGFR) is calculated using the 2020 CKD-EPI creatinine equation. This equation utilizes serum creatinine, sex, and age as parameters. The creatinine assay has traceable calibration to isotope dilution- mass spectrometry. Refer to KDIGO guidelines for clinical interpretation. In patients with unstable renal function, e.g. those with acute kidney injury, the eGFRmay not accurately reflect actual GFR. eGFR- Date Value Ref Range Status 04/23/2021 >60 Final P.O.C.T. RESULTS: N/A February 03, 2024 TREATMENT: N/A IV SITE: Ambulatory: A peripheral IV was started in the Left forearm with a Angio cath: 20 gauge. IV SITE APPEARANCE: Clean,Dry and Intact SIGNATURE: Elmira Mendez RN PATIENT NAME: Oswaldo Corley DATE: February 03, 2024 TIME: 2:40 PM documented in this encounterPromedica Memorial Hospital11-21-2024 NoteL[facility]11-21-[facility] History of Present illness Narrative* Juan Carlos Viveros - 01/21/2024 12:54 PM EST FOLLOW UP PODIATRIC OFFICE VISIT Chief Complaint: This 83 year old who presents for follow up:left medial ankle ulceration. Patient presents to clinic for follow-up left medial leg ulceration Patient is currently applying santyl to the left leg. He feels the ulceration is improving. He is scheduled with vascular surgery early next month PAIN EVALUATION 01/21/2024 1110 Pain Level: 3 Pain Location: Ankle-Right Description: Sore Duration Units: Months Frequency: Intermittent Intervention/Comfort measure: Reposition;Relaxation;Medication Hemoglobin A1C Date Value Ref Range Status 06/24/2022 5.0 4.3 - 5.6 % Final Comment: [place] [employer] guidelines indicate that patients with HgbA1c in the range 5.7-6.4% are at increased risk for development of diabetes, and intervention by lifestyle modification may be beneficial. HgbA1c greater or equal to 6.5% is considered diagnostic of diabetes. PCP: Mei Cummins MD PAST MEDICAL HISTORY Diagnosis Date Abdominal aortic aneurysm (AAA) without rupture (HCC) 11/19/2018 Atypical chest pain CAD (coronary artery disease) s/p CABG 1999, PCI w/ stents Chronic respiratory failure (HCC) COPD (chronic obstructive pulmonary disease) (HCC) Hyperlipidemia Hyperlipidemia Hypertension Lung cancer (HCC) Prostate cancer (HCC) Dx Dec 2014, s/p radiation, on hormonal therapy Ulcer of right foot (HCC) 04/30/2022 Current Outpatient Medications Medication Sig doxycycline (VIBRA-TABS) 100 mg tablet Take 1 tablet by mouth two times a day for 10 days. metoprolol tartrate, short acting, (LOPRESSOR) 25 mg tablet Take 0.5 tablets by mouth two times a day. Take 0.5 tab po bid. albuterol HFA (PROAIR HFA) 90 mcg/actuation inhaler Inhale 2 Puffs as instructed every 4 hours as needed for wheezing/shortness of breath. SPIRIVA RESPIMAT 2.5 mcg/actuation inhaler Inhale 2 Puffs as instructed once daily. collagenase (SANTYL) ointment Apply to affected area once daily. APPLY TO AFFECTED AREA OXYGEN, HOME THERAPY, 5 L/min by Nasal Cannula route continuous. apixaban (ELIQUIS) 5 mg tab(s) Take 1 tablet by mouth two times a day. atorvastatin (LIPITOR) 40 mg tablet Take 1 tablet by mouth once daily. ADVAIR HFA 230-21 mcg/actuation inhaler Inhale 2 Puffs as instructed two times a day. LORazepam (ATIVAN) 1 mg tablet Take 1 tablet by mouth three times a day for 90 days. iv contrast (will be provided with radiology test) CT Chest W -Inject, intravenously, once for 1 dose.No IV access, insert saline lock prior to the beginning of sedation, infusion, injection of imaging exam. Discontinue saline lock post exam. If Pt. has a central line or IVAD, may access for administration according to line specific nursing protocol. Once exam is complete flush line and de-accessaccording to line specific nursing protocol in the CT contrast administration guidelines link. ezetimibe (ZETIA) 10 mg tablet Take 1 tablet by mouth once daily. iv contrast (will be provided with radiology test) CT Chest W -Inject, intravenously, once for 1 dose.No IV access, insert saline lock prior to the beginning of sedation, infusion, injection of imaging exam. Discontinue saline lock post exam. If Pt. has a central line or IVAD, may access for administration according to line specific nursing protocol. Once exam is complete flush line and de-accessaccording to line specific nursing protocol in the CT contrast administration guidelines link. nitroglycerin sublingual (NITROSTAT) 0.4 mg SL tablet Dissolve 1 tablet under the tongue every 5 minutes as needed. acetaminophen 325 mg cap Take 650 mg by mouth every 8 hours as needed. oxyCODONE IR (ROXICODONE) 5 mg immediate release tablet Take 5 mg by mouth four times a day as needed. guaiFENesin (MUCINEX) 600 mg 12 hr tablet Take 1,200 mg by mouth two times a day. DULoxetine (CYMBALTA) 30 mg capsule Take 30 mg by mouth once daily. ondansetron (ZOFRAN) 4 mg tablet 1 tablet as needed. aspirin, enteric coated (ASPIRIN, ENTERIC COATED) 81 mg EC tablet Take 81 mg by mouth once daily. No current facility-administered medications for this visit. ALLERGIES Allergen Reactions Imdur [Isosorbide M* Hives Black out and dizziness PAST SURGICAL HISTORY Procedure Laterality Date ANGIOGRAM EXTREMITY COLONOSCOPY N/A 09/29/2023 [facility] COLONOSCOPY N/A 10/07/2023 [facility] EGD W/O [facility] SPEC VARICIES INJ N/A 09/29/2023 [facility] EGD W/O [facility] SPEC VARICIES INJ N/A 10/07/2023 [facility] LUNG BIOPSY Left needle biopsy LUNG SURGERY HX 02/20/20 lt lung nodule removed PAST SURGICAL HISTORY OF TURP PAST SURGICAL HISTORY OF 03/02/1999 triple bypass PAST SURGICAL HISTORY OF Left 09/04/2022 Skin biopsy left upper cheek face PAST SURGICAL HISTORY OF LE vascular Physical Exam: OBJECTIVE: Constitutional: Pt is a well developed 83 year old male who is alert, oriented, cooperative and in no apparent distress. Eyes: Following during examination. No redness or drainage. Respiratory: RR normal and nonlabored. Even breathing. No evidence of distress. Psychology: Patient is engaged during conversation. Normal affect and mood. Does not appear depressed or anxious. NVSI unchanged from previous visit. Dermatological: Ulceration #1 Location: left medial leg Measurement: 5 mm x 5 mm x 1 mm Base: fibrotic No redness, no drainage, no local signs of infection ASSESSMENT: (L98.491) Skin ulcer, limited to breakdown of skin (HCC) (primary encounter diagnosis) (I73.9) Peripheral arterial disease (HCC) (I87.2) Venous insufficiency PLAN: Discussed ulceration of left leg. No significant change compared to last office visit I do feel this ulceration is challenging to heal due to combination of PAD and venous insufficiency. Recommend he continue with santyl and light compression with tubigrip Await vascular recommendations. Juan Carlos Viveros DPM * Jacy Sunshine LPN - 01/21/2024 11:10 AM EST AMB ROOMING INTAKE FLOWSHEET DATA Pain Pain Level: 3 Pain Location: Ankle-Right Description: Sore Duration Units: Months Frequency: Intermittent Intervention/Comfort measure: Reposition, Relaxation, Medication Patient presents with: Left Ankle - Established Patient, Pain, Ulcer Jacy Sunshine LPN documented in this encounterPromedica [facility]11-[facility]24 Telephone encounter Note * Telephone Encounter - Malu Tavares MA - 01/21/2024 12:03 PM EST Detailed message left on Jeremiah's identified vm. Malu Tavares MA [facility]11-[facility] Miscellaneous Notes* Telephone Encounter - Malu Tavares MA - 01/21/2024 12:03 PM EST Detailed message left on Jeremiah's identified vm. Malu Tavares MA * Telephone Encounter - Mei Cummins MD - 01/21/2024 11:04 AM EST OK for verbal okay to extend nursing visits x three weeks for continued wound care. Mei Cummins MD * Telephone Encounter - Shara Jackson RN - 01/20/2024 1:15 PM EST nurse Jeremiah @ [facility] calling to request verbal okay to extend nursing visits x three weeks for continued wound care. # [phone] Shara Jackson RN documented in this encounterPromedica Memorial Hospital11-21-2024 Instructions* Patient Instructions* Juan Carlos Viveros - 01/21/2024 11:25 AM EST Continue with santyl Continue with light compression, perhaps by way of tubigrip Await vascular recommendations. documented in this encounterPromedica Memorial Hospital11-21-2024 NoteLima [facility]11-21-[facility]24 Telephone encounter Note* Telephone Encounter - Mei Cummins MD - 01/21/2024 11:04 AM EST OK for verbal okay to extend nursing visits x three weeks for continued wound care. Mei Cummins MD [facility] Telephone encounter Note* Telephone Encounter - Shara Jackson RN - 01/20/2024 1:15 PM EST nurse Jeremiah @ [facility] calling to request verbal okay to extend nursing visits x three weeks for continued wound care. # [phone] Shara Jackson RN [facility]11-19-2024 History of Present illness Narrative* Kailash Cordova APRN.LEGAL STENOGRAPHER - 01/19/2024 1:00 PM EST Images from the original note were not included. Pulmonary Medicine Patients name: Oswaldo Corley PCP: Mei Cummins MD CC: CT follow-up HPI: Oswaldo Corley is a 83 year old male former 80 pack year smoker, quit 2002 with PMH significant for CAD s/p CABG/stents, AAA, DM2, HTN, prostate cancer s/p radiation and hormonal therapy, squamous cell carcinoma of the lung s/p left thoracoscopy, conversion to mini thoracotomy, evacuation ofpleural effusion, wedge resection 01/2020, multiple lung nodules, COPD, PE on Eliquis and Bronchiectasis. Current inhaler therapy includes Advair, Spiriva and PRN Albuterol. He is also on chronic oral steriods, utilizes mucous clearance techniques, vest therapy and supplemental O2. JOSE M 12/07 where he was prescribed Levaquin and Augmentin for SULAIMAN pneumonia seen on chest CT in October. Sputum culture positive for Staph aures. He had improved but persistent symptoms following initial treatment and was prescribed Doxycycline which he completed. Follow-up CT from 01/11 shows resolution of SULAIMAN infection but did reveal new posterior LLL consolidative opacity. Known left pneumothorax with slight increase in fluid from prior. Images reviewed with patient and . Currently, he reports his usual productive cough with usual light green sputum. No further hemoptysis since his last pneumonia infection. No wheezing. Occasional dyspnea at rest. Only change in symptoms include slight worsening of exertional dyspnea. No fevers, chills, or night sweats. No recent hospitalizations or ED visits or upper respiratory infections. No change in baseline O2 requirements. DME: [employer] Currently wearing 5L O2 continuously PAST MEDICAL HISTORY Diagnosis Date Abdominal aortic aneurysm (AAA) without rupture (HCC) 11/19/2018 Atypical chest pain CAD (coronary artery disease) s/p CABG 1999, PCI w/ stents Chronic respiratory failure (HCC) COPD (chronic obstructive pulmonary disease) (HCC) Hyperlipidemia Hyperlipidemia Hypertension Lung cancer (HCC) Prostate cancer (HCC) Dx Dec 2014, s/p radiation, on hormonal therapy Ulcer of right foot (HCC) 04/30/2022 Allergies: Imdur [Isosorbide M* Hives Comment:Black out and dizziness Medication List Accurate as of January 19, 2024 11:10 AM. If you have any questions, ask your nurse or doctor. CONTINUE taking these medications acetaminophen 325 mg Cap ADVAIR HFA 230-21 mcg/actuation inhaler Generic drug: fluticasone-salmeterol HFA albuterol HFA 90 mcg/actuation inhaler Commonly known as: PROAIR HFA Inhale 2 Puffs as instructed every 4 hours as needed for wheezing/shortness of breath. apixaban 5 mg tab(s) Commonly known as: ELIQUIS Take 1 tablet by mouth two times a day. aspirin, enteric coated 81 mg EC tablet Commonly known as: ASPIRIN, ENTERIC COATED atorvastatin 40 mg tablet Commonly known as: LIPITOR Take 1 tablet by mouth once daily. DULoxetine 30 mg capsule Commonly known as: CYMBALTA ezetimibe 10 mg tablet Commonly known as: ZETIA Take 1 tablet by mouth once daily. guaiFENesin 600 mg 12 hr tablet Commonly known as: MUCINEX * iv contrast (will be provided with radiology test) CT Chest W -Inject, intravenously, once for 1 dose.No IV access, insert saline lock prior to the beginning of sedation, infusion, injection of imaging exam. Discontinue saline lock post exam. If Pt. has a central line or IVAD, may access for administration according to line specific nursing protocol. Once exam is complete flush line and de-access according to line specific nursing protocol in the[place] contrast administration guidelines link. * iv contrast (will be provided with radiology test) CT Chest W -Inject, intravenously, once for 1 dose.No IV access, insert saline lock prior to the beginning of sedation, infusion, injection of imaging exam. Discontinue saline lock post exam. If Pt. has a central line or IVAD, may access for administration according to line specific nursing protocol. Once exam is complete flush line and de-access according to line specific nursing protocol in theCT contrast administration guidelines link. LORazepam 1 mg tablet Commonly known as: ATIVAN Take 1 tablet by mouth three times a day for 90 days. metoprolol tartrate (short acting) 25 mg tablet Commonly known as: LOPRESSOR Take 0.5 tablets by mouth two times a day. Take 0.5 tab po bid. nitroglycerin sublingual 0.4 mg SL tablet Commonly known as: NITROSTAT Dissolve 1 tablet under the tongue every 5 minutes as needed. ondansetron 4 mg tablet Commonly known as: ZOFRAN oxyCODONE IR 5 mg immediate release tablet Commonly known as: ROXICODONE OXYGEN (HOME THERAPY) SantyL ointment Generic drug: collagenase Apply to affected area once daily. APPLY TO AFFECTED AREA SPIRIVA RESPIMAT 2.5 mcg/actuation inhaler Generic drug: tiotropium bromide Inhale 2 Puffs as instructed once daily. * This list has 2 medication(s) that are the same as other medications prescribed for you. Read thedirections carefully, and ask your doctor or other care provider to review them with you. DATA: I personally reviewed and analyzed all labs, radiographs and available pulmonary function testing CT Chest: 01/12/2024 IMPRESSION: New LEFT lung airspace disease consistent with pneumonia. Localized posterior RIGHT upper lobe airspace disease most likely also infectious etiology. Postinflammatory changes LEFT apex. Loculated LEFT hydropneumothorax with mild increase in fluid. Other pulmonary and pleural findings as per results. Cholelithiasis. Neonatal Pediatric Nurse: ARTEM Transcribe Date/Time: Jan 18 2024 1:28P Dictated by : MEI CAMEJO MD This examination was interpreted and the report reviewed and electronically signed by: MEI CAMEJO MD on Jan 18 2024 2:15PM EST Results-Findings * * *Final Report* * * DATE OF EXAM: Jan 12 2024 1:24PM [facility] 0541 - CT CHEST WO IVCON / PROCEDURE REASON: Pneumonia of left lung due to infectious organism, unspecified part of lung * * * * Physician Interpretation * * * * EXAMINATION: CHEST CT WITHOUT CONTRAST CLINICAL HISTORY: Pneumonia. Squamous cell carcinoma Technique: Spiral CT acquisition of the chest from the thoracic inlet to the upper abdomen without contrast. MQ: [id number] CT Radiation dose: Integrated Dose-length product (DLP) for this visit = 235 mGy*cm CT Dose Reduction Employed: Automated exposure control(AEC) and iterative recon Comparison: CT 11/13/2023 RESULT: Limitations: None. Lines, tubes, and devices: None. Lung parenchyma and airways: -In area of dense consolidative opacity in prior CT there are irregular curvilinear densities consistent with postoperative inflammatory change. There is also two adjacent small thin-walled lucencies and focal pleural thickening. -There is new consolidative opacity in the posterior mid LEFT lower lobe contiguous to previously noted loculated pneumothorax. Superiorly the consolidative opacities contiguous with curvilinear densities which extend to consolidative opacity contiguous to anterior aspect of the LEFT lower lobe superior segmental artery. In the LEFT lung base there is generalized interstitial thickening and subpleural posterior linear densities. -There is localized reticular thickening in the posterior RIGHT upper lobe with adjacent subpleural consolidative opacity along the major fissure. Stable reticular thickening at the RIGHT lung base with focal anterior RIGHT basilar consolidative opacity. -There are diffuse stable nodular densities 2-3 mm in diameter. 3 mm medial LEFT apical nodule (17:35) is new from the prior study. The central airways are patent. Pleural space: Loculated LEFT pneumothorax not significantly changed in size in axial dimensions 10.4 x 2.8 cm. Layering fluid slightly increased from prior study. No pleural thickening. Lower neck, lymph nodes, and mediastinum: The imaged thyroid gland is normal. No lymphadenopathy in the supraclavicular, axillary, mediastinal, or hilar regions. Heart, pericardium, and thoracic vessels: The thoracic aorta and main pulmonary artery are normal in caliber. The cardiac chambers are normal in size. Coronary artery atherosclerotic calcifications are noted, although the study is not optimized for coronary assessment. No pericardial effusion or thickening. Bones and soft tissues: Status post median sternotomy. No destructive bone lesion. Stable postsurgical changes LEFT ribs. Upper abdomen: Punctate calcified gallstones Labs: WBC (k/uL) Date Value 12/08/2023 12.26 04/23/2021 9.21 RBC (m/uL) Date Value 12/08/2023 4.31 04/23/2021 5.07 Hemoglobin (g/dL) Date Value 12/08/2023 11.8 04/23/2021 14.8 Hematocrit (%) Date Value 12/08/2023 40.0 04/23/2021 46.2 Platelet Count (k/uL) Date Value 12/08/2023 171 04/23/2021 180 MPV (fL) Date Value 12/08/2023 9.8 04/23/2021 8.5 Neut% (%) Date Value 04/23/2021 85.8 Neutrophils % (%) Date Value 12/08/2023 92.4 Eosin% (%) Date Value 04/23/2021 1.0 Eosinophils % (%) Date Value 12/08/2023 0.0 Baso% (%) Date Value 04/23/2021 0.2 Basophils % (%) Date Value 12/08/2023 0.2 Abs Neut (ANC) (k/uL) Date Value 04/23/2021 7.90 Abs Neut (k/uL) Date Value 12/08/2023 11.33 Abs Posey (k/uL) Date Value 12/08/2023 0.37 04/23/2021 0.57 Abs Eosin (k/uL) Date Value 12/08/2023 <0.03 04/23/2021 0.09 Abs Baso (k/uL) Date Value 12/08/2023 <0.03 04/23/2021 <0.03 Review of Systems Constitutional: Negative for activity change, appetite change, fever and unexpected weight change. HENT: Negative for congestion, mouth sores and postnasal drip. Respiratory: Positive for cough and shortness of breath. Negative for chest tightness and wheezing. Cardiovascular: Negative for chest pain, palpitations and leg swelling. Musculoskeletal: Positive for arthralgias. Neurological: Negative for dizziness and light-headedness. BP 136/58 Pulse 64 Resp 20 SpO2 96% Physical Exam Vitals reviewed. Constitutional: General: He is not in acute distress. Appearance: Normal appearance. He is not ill-appearing. HENT: Head: Normocephalic. Nose: No rhinorrhea. Mouth/Throat: Mouth: Mucous membranes are moist. Pharynx: No oropharyngeal exudate. Cardiovascular: Rate and Rhythm: Normal rate and regular rhythm. Heart sounds: Normal heart sounds. Pulmonary: Effort: Pulmonary effort is normal. No respiratory distress. Comments: LLL crackles Musculoskeletal: Right lower leg: No edema. Left lower leg: No edema. Lymphadenopathy: Cervical: No cervical adenopathy. Skin: General: Skin is warm and dry. Capillary Refill: Capillary refill takes less than 2 seconds. Neurological: General: No focal deficit present. Mental Status: He is alert. ASSESSMENT/PLAN: 1. Pneumonia of left lower lobe due to infectious organism - ICD9: 486, ICD10: J18.9 (primary diagnosis) - new LLL pneumonia on chest CT, previous SULAIMAN pneumonia resolved. - previous sputum with staph aureus. Will obtain new culture. - start therapy with Doxycycline. Encouraged to obtain culture before starting treatment but shouldnot wait longer than 24 hours to begin treatment. - Chest CT per oncology already scheduled in March. - RESPIRATORY CULTURE AND STAIN - DOXYCYCLINE HYCLATE 100 MG TABLET 2. Bronchiectasis without complication (HCC) - ICD9: 494.0, ICD10: J47.9 - Strict vest therapy recommended d/t frequent infections 3. Chronic hypoxemic respiratory failure (HCC) - ICD9: 518.83, 799.02, ICD10: J96.11 - continues to be compliant and benefit from supplemental O2 - currently on 5L continuous F/u scheduled with [facility] in March. Will also arrange to see Dr. Calvillo in 4 months. Portions of this documentation were copied and pasted from previous office visit notes in order to provide a cohesive continuity of the history. The note has been reviewed and edited and updated as necessary. Kailash Cordova APRN.DANELLE I spent a total of 40 minutes on the date of the service which included preparing to see the patient, [id number] patient care, completing clinical documentation, performing a medically appropriate examination, counseling and educating the patient/family/caregiver, ordering medications, tests, or p rocedures, and communicating results to the patient/family/caregiver. documented in this encounterPromedica [facility]11-19-2024 NoteL[facility]11-12-2024 History of Present illness Narrative* Summer Grant RT(R) - 01/12/2024 1:00 PM EST Radiology Service Progress Note PATIENT NAME: Oswaldo Corley DATE OF SERVICE: January 12, 2024 TIME: 1:43 PM PATIENT IDENTITY VERIFICATION COMPLETED USING TWO (2) IDENTIFIERS: Name and Date of confirmedby patient verbally. FALL SCREENING: Has the patient had 2 falls in the last year or 1 fall with injury or currently using an Ambulatory Assistive Device (Walker, Cane, Wheelchair, Crutches, etc.)? No PATIENT GENDER DATA: Male PATIENT RELEVANT IMPLANT DATA REVIEWED: Yes PATIENT PRESENTS WITH AN IMPLANTABLE OR ATTACHED TOWER HELPER: No RADIOLOGY DEPARTMENT: CT; Exam(s) Completed: Chest PERIPHERAL IV DATA: Not applicable SIGNED BY: RT Joey(R) January 12, 2024 1:43 PM documented in this encounterPromedica Memorial Hospital11-12-2024 NoteL[facility]11-08-2024 Telephone encounter Note* Telephone Encounter - Malu Tavares MA - 01/08/2024 10:03 AM EST Detailed message of below left on Sunshine's identified and confidential VM. Malu Tavares MA [facility]11-08-2024 Miscellaneous Notes* Telephone Encounter - Malu Tavares MA - 01/08/2024 10:03 AM EST Detailed message of below left on Sunshine's identified and confidential VM. Malu Tavares MA * Telephone Encounter - Mei Cummins MD - 01/08/2024 9:54 AM EST OK to give verbal order for HH PT to evaluate Mei Cummins MD * Telephone Encounter - Krystal Aviles LPN - 01/08/2024 9:33 AM EST Sunshine calling from [facility], patient was seen at [facility] ER for a fall with open laceration to his head.They are working on falls at [facility] and would like to send HH PT to patients home for a evaluation. Asking if PCP can order for PT eval to go out next week. Please advise. documented in this encounterPromedica Memorial Hospital11-08-2024 Telephone encounter Note * Telephone Encounter - Mei Cummins MD - 01/08/2024 9:54 AM EST OK to give verbal order for HH PT to evaluate Mei Cummins MD [facility]11-08-2024 Telephone encounter Note* Telephone Encounter - Krystal Aviles LPN - 01/08/2024 9:33 AM EST Sunshine calling from [facility], patient was seen at [facility] ER for a fall with open laceration to his head.They are working on falls at [facility] and would like to send PT to patients home for a evaluation. Asking if PCP can order for PT eval to go out next week. Please advise. [facility]11-05-[facility]24 Telephone encounter Note* Telephone Encounter - Alethea Childress RN - 01/05/2024 3:29 PM EST Spoke with patient and and informed of plan. Once ordered placed will call to assist with scheduling the CT scan [facility]11-05-2024 Miscellaneous Notes* Telephone Encounter - Alethea Childress RN - 01/05/2024 3:29 PM EST Spoke with patient and and informed of plan. Once ordered placed will call to assist with scheduling the CT scan * Telephone Encounter - Alethea Childress RN - 01/05/2024 1:37 PM EST Call received from Dr. Viveros's office requesting an appt with our office for concerns of a non-healing left ankle wound. Patient is currently scheduled in January but provider feels patient needs sooner appt. Spoke with in office who will plan to order CT scan to be completed prior to seeing Dr. Mauro as scheduled. Will contact patient with update on plan. documented in this encounterPromedica Memorial Hospital11-05-2024 History of Present illness Narrative* Kelsea Miller, RT(R) - 01/05/2024 2:00 PM EST Radiology Service Progress Note PATIENT NAME: Oswaldo Corley DATE OF SERVICE: January 05, 2024 TIME: 1:55 PM PATIENT IDENTITY VERIFICATION COMPLETED USING TWO (2) IDENTIFIERS: Name and Date of confirmedby patient verbally. FALL SCREENING: Has the patient had 2 falls in the last year or 1 fall with injury or currently using an Ambulatory Assistive Device (Walker, Cane, Wheelchair, Crutches, etc.)? Yes, Patient High Riskfor Falls What interventions were put in place to prevent falls during this visit? did on table PATIENT GENDER DATA: Male PATIENT RELEVANT IMPLANT DATA REVIEWED: Not Applicable PATIENT PRESENTS WITH AN IMPLANTABLE OR ATTACHED TOWER HELPER: No RADIOLOGY DEPARTMENT: General X-ray: Exam(s) Completed: Lower Extremity X- Ray(s): Ankle, Left PERIPHERAL IV DATA: Not applicable SIGNED BY: RT Isai(R) January 05, 2024 1:55 PM documented in this encounterPromedica Memorial Hospital11-05-2024 NoteL[facility]11-05-2024 Telephone encounter Note* Telephone Encounter - Alethea Childress RN - 01/05/2024 1:37 PM EST Call received from Dr. Viveros's office requesting an appt with our office for concerns of a non-healing left ankle wound. Patient is currently scheduled in January but provider feels patient needs sooner appt. Spoke with in office who will plan to order CT scan to be completed prior to seeing Dr. Mauro as scheduled. Will contact patient with update on plan. [facility]-05-[facility] Instructions* Patient Instructions* Juan Carlos Viveros - 01/05/2024 1:16 PM EST Continue with santyl to left leg Recommend tubigrip to left leg daily. Can remove prior to bed. documented in this encounterPromedica Memorial Hospital11-05-2024 NoteL[facility]11-05-2024 History of Present illness Narrative* Juan Carlos Viveros - 01/05/2024 1:06 PM EST FOLLOW UP PODIATRIC OFFICE VISIT Chief Complaint: This 83 year old who presents for follow up:left medial ankle ulceration Patient presents to clinic for follow-up left medial leg ulceration Currently applying santyl to the ulceration Reports pain as 3/10 PAIN EVALUATION 01/05/2024 1304 Pain Level: 3 Pain Location: Ankle-Left Description: Sharp Duration Units: Weeks Frequency: Intermittent Intervention/Comfort measure: Relaxation;Reposition Hemoglobin A1C Date Value Ref Range Status 06/24/2022 5.0 4.3 - 5.6 % Final Comment: [place] [employer] guidelines indicate that patients with HgbA1c in the range 5.7-6.4% are at increased risk for development of diabetes, and intervention by lifestyle modification may be beneficial. HgbA1c greater or equal to 6.5% is considered diagnostic of diabetes. PCP: Mei Cummins MD PAST MEDICAL HISTORY Diagnosis Date Abdominal aortic aneurysm (AAA) without rupture (HCC) 11/19/2018 Atypical chest pain CAD (coronary artery disease) s/p CABG 1999, PCI w/ stents Chronic respiratory failure (HCC) COPD (chronic obstructive pulmonary disease) (HCC) Hyperlipidemia Hyperlipidemia Hypertension Lung cancer (HCC) Prostate cancer (HCC) Dx Dec 2014, s/p radiation, on hormonal therapy Ulcer of right foot (HCC) 04/30/2022 Current Outpatient Medications Medication Sig metoprolol tartrate, short acting, (LOPRESSOR) 25 mg tablet Take 0.5 tablets by mouth two times a day. Take 0.5 tab po bid. albuterol HFA (PROAIR HFA) 90 mcg/actuation inhaler Inhale 2 Puffs as instructed every 4 hours as needed for wheezing/shortness of breath. SPIRIVA RESPIMAT 2.5 mcg/actuation inhaler Inhale 2 Puffs as instructed once daily. collagenase (SANTYL) ointment Apply to affected area once daily. APPLY TO AFFECTED AREA OXYGEN, HOME THERAPY, 5 L/min by Nasal Cannula route continuous. apixaban (ELIQUIS) 5 mg tab(s) Take 1 tablet by mouth two times a day. atorvastatin (LIPITOR) 40 mg tablet Take 1 tablet by mouth once daily. ADVAIR HFA 230-21 mcg/actuation inhaler Inhale 2 Puffs as instructed two times a day. iv contrast (will be provided with radiology test) CT Chest W -Inject, intravenously, once for 1 dose.No IV access, insert saline lock prior to the beginning of sedation, infusion, injection of imaging exam. Discontinue saline lock post exam. If Pt. has a central line or IVAD, may access for administration according to line specific nursing protocol. Once exam is complete flush line and de-accessaccording to line specific nursing protocol in the CT contrast administration guidelines link. predniSONE (DELTASONE) 10 mg tablet Take 1 tablet by mouth once daily. ezetimibe (ZETIA) 10 mg tablet Take 1 tablet by mouth once daily. iv contrast (will be provided with radiology test) CT Chest W -Inject, intravenously, once for 1 dose.No IV access, insert saline lock prior to the beginning of sedation, infusion, injection of imaging exam. Discontinue saline lock post exam. If Pt. has a central line or IVAD, may access for administration according to line specific nursing protocol. Once exam is complete flush line and de-accessaccording to line specific nursing protocol in the CT contrast administration guidelines link. nitroglycerin sublingual (NITROSTAT) 0.4 mg SL tablet Dissolve 1 tablet under the tongue every 5 minutes as needed. acetaminophen 325 mg cap Take 650 mg by mouth every 8 hours as needed. oxyCODONE IR (ROXICODONE) 5 mg immediate release tablet Take 5 mg by mouth four times a day as needed. guaiFENesin (MUCINEX) 600 mg 12 hr tablet Take 1,200 mg by mouth two times a day. DULoxetine (CYMBALTA) 30 mg capsule Take 30 mg by mouth once daily. ondansetron (ZOFRAN) 4 mg tablet 1 tablet as needed. aspirin, enteric coated (ASPIRIN, ENTERIC COATED) 81 mg EC tablet Take 81 mg by mouth once daily. LORazepam (ATIVAN) 1 mg tablet Take 1 tablet by mouth three times a day for 90 days. No current facility-administered medications for this visit. ALLERGIES Allergen Reactions Imdur [Isosorbide M* Hives Black out and dizziness PAST SURGICAL HISTORY Procedure Laterality Date ANGIOGRAM EXTREMITY COLONOSCOPY N/A 09/29/2023 [facility] COLONOSCOPY N/A 10/07/2023 [facility] EGD W/O [facility] SPEC VARICIES INJ N/A 09/29/2023 [facility] EGD W/O [facility] SPEC VARICIES INJ N/A 10/07/2023 [facility] LUNG BIOPSY Left needle biopsy LUNG SURGERY HX 02/20/20 lt lung nodule removed PAST SURGICAL HISTORY OF TURP PAST SURGICAL HISTORY OF 03/02/1999 triple bypass PAST SURGICAL HISTORY OF Left 09/04/2022 Skin biopsy left upper cheek face PAST SURGICAL HISTORY OF LE vascular Physical Exam: OBJECTIVE: Constitutional: Pt is a well developed 83 year old male who is alert, oriented, cooperative and in no apparent distress. Eyes: Following during examination. No redness or drainage. Respiratory: RR normal and nonlabored. Even breathing. No evidence of distress. Psychology: Patient is engaged during conversation. Normal affect and mood. Does not appear depressed or anxious. NVSI unchanged from previous visit. Non-Invasive Vascular Laboratory [facility] Lower Extremity Arterial Physiology Study Bilateral/Complete Date of service/time: 08/18/2023 8:49:51 AM Name: MR. OSWALDO CORLEY Date of : 1940 Age: 83 years Gender: M Clinical Indication Peripheral vascular disease. Right external iliac artery stent and iliofemoral endarterectomy. TECHNIQUE -------- An arterial physiological examination was performed, including measurement of blood pressures using continuous wave Doppler and recording of plethysmographic with or without Doppler waveforms at the below-mentioned limb segments. FINDINGS -------- RIGHT SIDE AT REST Right Doppler Waveforms Dorsalis pedis: Monophasic. Post tibial: Monophasic. Right Pressures Brachial: 139 mmHg Ankle dorsalis pedis: 164 mmHg TRAE: 1.15 Partially non-compressible arteries. Ankle posterior tibial: 185 mmHg TRAE: 1.30 Partially non-compressible arteries. Digit: 75 mmHg Right PVR Waveforms Ankle: Moderately dampened. Transmetatarsal: Moderately dampened. Digit: Mildly dampened. LEFT SIDE AT REST Left Doppler Waveforms Dorsalis pedis: Monophasic. Post tibial: Monophasic. Left Pressures Brachial: 142 mmHg Ankle dorsalis pedis: 255 mmHg TRAE: 1.80 Non-compressible arteries. Ankle posterior tibial: 255 mmHg TRAE: 1.80 Non-compressible arteries. Digit: 50 mmHg Left PVR Waveforms Ankle: Moderately dampened. Transmetatarsal: Moderately dampened. Digit: Moderately dampened. IMPRESSION Compared to prior study of 02/03/2023, No significant change. RIGHT SIDE Resting right ankle brachial index: 1.30 Partially non-compressible arteries, TRAE not accurate. Right toe brachial index: 0.53 Non-compressible vessels, results called by PVR tracings. Abnormal toe brachial index at rest is evidence of peripheral artery disease. Right ankle: Moderate disease at rest. LEFT SIDE Resting left ankle brachial index: 1.80 Non-compressible arteries, TRAE not accurate. Left toe brachial index: 0.35 Non-compressible vessels, results called by PVR tracings. Abnormal toe brachial index at rest is evidence of peripheral artery disease. Left ankle: Moderate disease at rest. Technologist: Colleen Da Silva RVT [facility] Dermatological: Ulceration #1 Location: left medial ankle Measurement: 5 mm x 5mm x 1 mm Base: fibrotic No signs of infection ASSESSMENT: (L98.491) Skin ulcer, limited to breakdown of skin (HCC) (primary encounter diagnosis) (I73.9) Peripheral arterial disease (HCC) (I87.2) Venous insufficiency PLAN: Discussed ulceration of left medial ankle. No significant change compared to past visits Recommend continued use of santyl. No signs of infection. No need for antibiotic Suspect component of venous insuffiency as well as arterial insufficiency Feel that vascular evaluation is warranted. Will order venous ultrasound with reflux Patient to see vascular later this month Juan Carlos Viveros DPM * Jacy Sunshine LPN - 01/05/2024 1:04 PM EST AMB ROOMING INTAKE FLOWSHEET DATA Pain Pain Level: 3 Pain Location: Ankle-Left Description: Sharp Duration Units: Weeks Frequency: Intermittent Intervention/Comfort measure: Relaxation, Reposition Patient presents with: Left Ankle - Established Patient, Pain, Ulcer Jacy Sunshine LPN documented [facility] History of Present illness Narrative* Jacy Sunshine LPN - 12/24/2023 4:[address] Viveros, Oswaldo wound was dressed with antibiotic ointment and bandage. Instructed/educated in its application, wear, and care. All questions were answered, and patient was able to demonstrate competence with the necessary skills to utilize the above equipment. Jacy Sunshine LPN * Juan Carlos Viveros - 12/24/2023 3:45 PM EDT FOLLOW UP PODIATRIC OFFICE VISIT Chief Complaint: This 83 year old who presents for follow up:left leg ulceration. Patient presents to clinic for follow-up left leg ulceration Currently using santyl Feels the ulceration is improving. PAIN EVALUATION 12/24/2023 1520 Pain Level: 3 Pain Location: Ankle-Right Description: Burning;Sharp Duration Units: Weeks Frequency: Intermittent Intervention/Comfort measure: Relaxation;Reposition Hemoglobin A1C Date Value Ref Range Status 06/24/2022 5.0 4.3 - 5.6 % Final Comment: [place] [employer] guidelines indicate that patients with HgbA1c in the range 5.7-6.4% are at increased risk for development of diabetes, and intervention by lifestyle modification may be beneficial. HgbA1c greater or equal to 6.5% is considered diagnostic of diabetes. PCP: Mei Cummins MD PAST MEDICAL HISTORY Diagnosis Date Abdominal aortic aneurysm (AAA) without rupture (HCC) 11/19/2018 Atypical chest pain CAD (coronary artery disease) s/p CABG 1999, PCI w/ stents Chronic respiratory failure (HCC) COPD (chronic obstructive pulmonary disease) (HCC) Hyperlipidemia Hyperlipidemia Hypertension Lung cancer (HCC) Prostate cancer (HCC) Dx Dec 2014, s/p radiation, on hormonal therapy Ulcer of right foot (HCC) 04/30/2022 Current Outpatient Medications Medication Sig metoprolol tartrate, short acting, (LOPRESSOR) 25 mg tablet Take 0.5 tablets by mouth two times a day. Take 0.5 tab po bid. doxycycline (VIBRA-TABS) 100 mg tablet Take 1 tablet by mouth two times a day for 10 days. albuterol HFA (PROAIR HFA) 90 mcg/actuation inhaler Inhale 2 Puffs as instructed every 4 hours as needed for wheezing/shortness of breath. SPIRIVA RESPIMAT 2.5 mcg/actuation inhaler Inhale 2 Puffs as instructed once daily. collagenase (SANTYL) ointment Apply to affected area once daily. APPLY TO AFFECTED AREA OXYGEN, HOME THERAPY, 5 L/min by Nasal Cannula route continuous. apixaban (ELIQUIS) 5 mg tab(s) Take 1 tablet by mouth two times a day. atorvastatin (LIPITOR) 40 mg tablet Take 1 tablet by mouth once daily. ADVAIR HFA 230-21 mcg/actuation inhaler Inhale 2 Puffs as instructed two times a day. LORazepam (ATIVAN) 1 mg tablet Take 1 tablet by mouth three times a day for 90 days. iv contrast (will be provided with radiology test) CT Chest W -Inject, intravenously, once for 1 dose.No IV access, insert saline lock prior to the beginning of sedation, infusion, injection of imaging exam. Discontinue saline lock post exam. If Pt. has a central line or IVAD, may access for administration according to line specific nursing protocol. Once exam is complete flush line and de-accessaccording to line specific nursing protocol in the CT contrast administration guidelines link. predniSONE (DELTASONE) 10 mg tablet Take 1 tablet by mouth once daily. ezetimibe (ZETIA) 10 mg tablet Take 1 tablet by mouth once daily. iv contrast (will be provided with radiology test) CT Chest W -Inject, intravenously, once for 1 dose.No IV access, insert saline lock prior to the beginning of sedation, infusion, injection of imaging exam. Discontinue saline lock post exam. If Pt. has a central line or IVAD, may access for administration according to line specific nursing protocol. Once exam is complete flush line and de-accessaccording to line specific nursing protocol in the CT contrast administration guidelines link. nitroglycerin sublingual (NITROSTAT) 0.4 mg SL tablet Dissolve 1 tablet under the tongue every 5 minutes as needed. acetaminophen 325 mg cap Take 650 mg by mouth every 8 hours as needed. oxyCODONE IR (ROXICODONE) 5 mg immediate release tablet Take 5 mg by mouth four times a day as needed. guaiFENesin (MUCINEX) 600 mg 12 hr tablet Take 1,200 mg by mouth two times a day. DULoxetine (CYMBALTA) 30 mg capsule Take 30 mg by mouth once daily. ondansetron (ZOFRAN) 4 mg tablet 1 tablet as needed. aspirin, enteric coated (ASPIRIN, ENTERIC COATED) 81 mg EC tablet Take 81 mg by mouth once daily. No current facility-administered medications for this visit. ALLERGIES Allergen Reactions Imdur [Isosorbide M* Hives Black out and dizziness PAST SURGICAL HISTORY Procedure Laterality Date ANGIOGRAM EXTREMITY COLONOSCOPY N/A 09/29/2023 [facility] COLONOSCOPY N/A 10/07/2023 [facility] EGD W/O [facility] SPEC VARICIES INJ N/A 09/29/2023 [facility] EGD W/O [facility] SPEC VARICIES INJ N/A 10/07/2023 [facility] LUNG BIOPSY Left needle biopsy LUNG SURGERY HX 02/20/20 lt lung nodule removed PAST SURGICAL HISTORY OF TURP PAST SURGICAL HISTORY OF 03/02/1999 triple bypass PAST SURGICAL HISTORY OF Left 09/04/2022 Skin biopsy left upper cheek face PAST SURGICAL HISTORY OF LE vascular Physical Exam: OBJECTIVE: Constitutional: Pt is a well developed 83 year old male who is alert, oriented, cooperative and in no apparent distress. Eyes: Following during examination. No redness or drainage. Respiratory: RR normal and nonlabored. Even breathing. No evidence of distress. Psychology: Patient is engaged during conversation. Normal affect and mood. Does not appear depressed or anxious. NVSI unchanged from previous visit. Non-Invasive Vascular Laboratory [facility] Lower Extremity Arterial Physiology Study Bilateral/Complete Date of service/time: 08/18/2023 8:49:51 AM Name: MR. OSWALDO CORLEY Date of : 1940 Age: 83 years Gender: M Clinical Indication Peripheral vascular disease. Right external iliac artery stent and iliofemoral endarterectomy. TECHNIQUE -------- An arterial physiological examination was performed, including measurement of blood pressures using continuous wave Doppler and recording of plethysmographic with or without Doppler waveforms at the below-mentioned limb segments. FINDINGS -------- RIGHT SIDE AT REST Right Doppler Waveforms Dorsalis pedis: Monophasic. Post tibial: Monophasic. Right Pressures Brachial: 139 mmHg Ankle dorsalis pedis: 164 mmHg TRAE: 1.15 Partially non-compressible arteries. Ankle posterior tibial: 185 mmHg TRAE: 1.30 Partially non-compressible arteries. Digit: 75 mmHg Right PVR Waveforms Ankle: Moderately dampened. Transmetatarsal: Moderately dampened. Digit: Mildly dampened. LEFT SIDE AT REST Left Doppler Waveforms Dorsalis pedis: Monophasic. Post tibial: Monophasic. Left Pressures Brachial: 142 mmHg Ankle dorsalis pedis: 255 mmHg TRAE: 1.80 Non-compressible arteries. Ankle posterior tibial: 255 mmHg TRAE: 1.80 Non-compressible arteries. Digit: 50 mmHg Left PVR Waveforms Ankle: Moderately dampened. Transmetatarsal: Moderately dampened. Digit: Moderately dampened. IMPRESSION Compared to prior study of 02/03/2023, No significant change. RIGHT SIDE Resting right ankle brachial index: 1.30 Partially non-compressible arteries, TRAE not accurate. Right toe brachial index: 0.53 Non-compressible vessels, results called by PVR tracings. Abnormal toe brachial index at rest is evidence of peripheral artery disease. Right ankle: Moderate disease at rest. LEFT SIDE Resting left ankle brachial index: 1.80 Non-compressible arteries, TRAE not accurate. Left toe brachial index: 0.35 Non-compressible vessels, results called by PVR tracings. Abnormal toe brachial index at rest is evidence of peripheral artery disease. Left ankle: Moderate disease at rest. Technologist: Colleen Da Silva RVT [facility] Ordering physician: TYRELL VIGIL Interpreting physician: VIRA Roblero DO Dermatological: Ulceration #1 Location: left medial ankle Measurement: 5 mm x 5 mm x 1 mm Base: fibrotic Musculoskeletal/Orthopaedic: Patient has no pain to palpation of left ankle ASSESSMENT: (L98.491) Skin ulcer, limited to breakdown of skin (HCC) (primary encounter diagnosis) (I73.9) Peripheral arterial disease (HCC) (I87.2) Venous insufficiency PLAN: Discussed ulceration of left medial leg. No signs of infection Clinically it is stable however I do have concerns that he is at risk of slow healing due to history of arterial insufficiency with likely secondary venous insufficieny as well Will continue with santyl. I will make note available to Dr. Vigil to see if he would benefit from earlier follow-up with vascular Juan Carlos Viveros DPM * Jacy Sunshine LPN - 12/24/2023 3:20 PM EDT AMB ROOMING INTAKE FLOWSHEET DATA Pain Pain Level: 3 Pain Location: Ankle-Right Description: Burning, Sharp Duration Units: Weeks Frequency: Intermittent Intervention/Comfort measure: Relaxation, Reposition Patient presents with: Left Ankle - Established Patient, Pain, Ulcer Jacy Sunshine LPN documented in this encounterProm[facility]10-24-2024 Instructions* Patient Instructions* Juan Carlos Viveros - 12/24/2023 3:52 PM EDT Continue with yosiyl documented in this encounterPromedica [facility]10-24-2024 [facility]-23-[facility] Instructions* Patient Instructions* Twila Weston APRN.CNP - 12/23/2023 1:55 PM EDT Get fasting labs completed in 6 months prior to next visit, no food 10-12 hours prior. May have black coffee and water Continue to take all medication as prescribed Keep scheduled appointments with specialists Watch diet, increase protein, veggies, and stay active. Flu and covid vaccines given Follow up in 6 months or sooner as needed. documented in this encounterPromedica [facility]10-23-2024 History of Present illness Narrative* Twila Weston APRN.CNP - 12/23/2023 1:40 PM EDT This is a 83 year old male who presents today with: Patient presents with: Follow Up: 3 month follow up HISTORY OF PRESENT ILLNESS: Oswaldo Corley is a 83 year old male. Patient presents with: Follow Up: 3 month follow up 3 month follow up COPD: Following with pulmonology, Dr. Calvillo. Taking Spiriva Respimat 2.5 mcg, 2 puffs daily. AdvairHFA 230-21 mcg, 2 puffs BID, Mucinex 600 mg, 2 capsules BID, using oxygen 5 L NC. Taking Doxycycline 100 mg BID for recent illness. HTN/ Following with cardiology, following every 6 months. Taking Metoprolol tartrate 25 mg, 1/2 tablets BID, eliquis 5 mg BID, Liptor 40 mg daily, Zetia 10 mg daily. Nitro tablets prn. Metoprolol tartrate 25 mg, 1/2 tablets BID. PAD Following with Dr. Vigil Podiatry: Seeing podiatry, ulcer on foot not healing. Left ankle, pressure wound. Has appt tomorrow. Mood: Taking Cymbalta 30 mg daily. Taking Ativan 1 mg TID prn. Symptoms well- controlled with medication. Prostate cancer: Following with Dr. Catalan. Routine PSA checks. Glucose: Not currently taking medication. Trying to watch diet at home. Vaccines: Would like Flu and Covid vaccines today PAST MEDICAL HISTORY: PAST MEDICAL HISTORY Diagnosis Date Abdominal aortic aneurysm (AAA) without rupture (HCC) 11/19/2018 Atypical chest pain CAD (coronary artery disease) s/p CABG 1999, PCI w/ stents Chronic respiratory failure (HCC) COPD (chronic obstructive pulmonary disease) (HCC) Hyperlipidemia Hyperlipidemia Hypertension Lung cancer (HCC) Prostate cancer (HCC) Dx Dec 2014, s/p radiation, on hormonal therapy Ulcer of right foot (HCC) 04/30/2022 PAST SURGICAL HISTORY Procedure Laterality Date ANGIOGRAM EXTREMITY COLONOSCOPY N/A 09/29/2023 [facility] COLONOSCOPY N/A 10/07/2023 [facility] EGD W/O [facility] SPEC VARICIES INJ N/A 09/29/2023 [facility] EGD W/O [facility] SPEC VARICIES INJ N/A 10/07/2023 [facility] LUNG BIOPSY Left needle biopsy LUNG SURGERY HX 02/20/20 lt lung nodule removed PAST SURGICAL HISTORY OF TURP PAST SURGICAL HISTORY OF 03/02/1999 triple bypass PAST SURGICAL HISTORY OF Left 09/04/2022 Skin biopsy left upper cheek face PAST SURGICAL HISTORY OF LE vascular ALLERGIES Imdur [Isosorbide Mononitrate] MEDICATIONS Current Outpatient Medications Medication Sig metoprolol tartrate, short acting, (LOPRESSOR) 25 mg tablet Take 0.5 tablets by mouth two times a day. Take 0.5 tab po bid. doxycycline (VIBRA-TABS) 100 mg tablet Take 1 tablet by mouth two times a day for 10 days. albuterol HFA (PROAIR HFA) 90 mcg/actuation inhaler Inhale 2 Puffs as instructed every 4 hours as needed for wheezing/shortness of breath. SPIRIVA RESPIMAT 2.5 mcg/actuation inhaler Inhale 2 Puffs as instructed once daily. collagenase (SANTYL) ointment Apply to affected area once daily. APPLY TO AFFECTED AREA OXYGEN, HOME THERAPY, 5 L/min by Nasal Cannula route continuous. apixaban (ELIQUIS) 5 mg tab(s) Take 1 tablet by mouth two times a day. atorvastatin (LIPITOR) 40 mg tablet Take 1 tablet by mouth once daily. ADVAIR HFA 230-21 mcg/actuation inhaler Inhale 2 Puffs as instructed two times a day. LORazepam (ATIVAN) 1 mg tablet Take 1 tablet by mouth three times a day for 90 days. iv contrast (will be provided with radiology test) CT Chest W -Inject, intravenously, once for 1 dose.No IV access, insert saline lock prior to the beginning of sedation, infusion, injection of imaging exam. Discontinue saline lock post exam. If Pt. has a central line or IVAD, may access for administration according to line specific nursing protocol. Once exam is complete flush line and de-accessaccording to line specific nursing protocol in the CT contrast administration guidelines link. predniSONE (DELTASONE) 10 mg tablet Take 1 tablet by mouth once daily. ezetimibe (ZETIA) 10 mg tablet Take 1 tablet by mouth once daily. iv contrast (will be provided with radiology test) CT Chest W -Inject, intravenously, once for 1 dose.No IV access, insert saline lock prior to the beginning of sedation, infusion, injection of imaging exam. Discontinue saline lock post exam. If Pt. has a central line or IVAD, may access for administration according to line specific nursing protocol. Once exam is complete flush line and de-accessaccording to line specific nursing protocol in the CT contrast administration guidelines link. nitroglycerin sublingual (NITROSTAT) 0.4 mg SL tablet Dissolve 1 tablet under the tongue every 5 minutes as needed. acetaminophen 325 mg cap Take 650 mg by mouth every 8 hours as needed. oxyCODONE IR (ROXICODONE) 5 mg immediate release tablet Take 5 mg by mouth four times a day as needed. guaiFENesin (MUCINEX) 600 mg 12 hr tablet Take 1,200 mg by mouth two times a day. DULoxetine (CYMBALTA) 30 mg capsule Take 30 mg by mouth once daily. ondansetron (ZOFRAN) 4 mg tablet 1 tablet as needed. aspirin, enteric coated (ASPIRIN, ENTERIC COATED) 81 mg EC tablet Take 81 mg by mouth once daily. No current facility-administered medications for this visit. FAMILY HISTORY Problem Relation Age of Onset Cancer Mother 49 breast, bone Diabetes Father Heart Father Cancer Sister breast Emphysema Sister Smoker Diabetes Brother Heart Brother other (Other) Brother Parkinsons Diabetes Paternal Grandmother Heart Paternal Grandmother Social History Tobacco Use Smoking status: Former Current packs/day: 0.00 Average packs/day: 2.0 packs/day for 40.0 years (80.0 ttl pk-yrs) Types: Cigarettes Start date: 11/08/1962 Quit date: 05/13/2002 Years since quittin.6 Smokeless tobacco: Never Vaping Use Vaping status: Never Used Substance Use Topics Alcohol use: Not Currently Alcohol/week: 3.0 standard drinks of alcohol Types: 3 Cans of beer per week Comment: light beer Drug use: No REVIEW OF SYSTEMS GENERAL: No weight loss, malaise or fevers/chills HEENT: Negative for frequent or significant headaches, No changes in hearing or vision. NECK: Negative for lumps, goiter, pain and significant neck swelling RESPIRATORY: Negative for cough, hemoptysis, wheezing, dyspnea or shortness of breath CARDIOVASCULAR: Negative for chest pain, leg swelling, orthopnea, or palpitations GI: No nausea, vomiting, or diarrhea/constipation. No hematochezia/melena. No heartburn or reflux symptoms. : No history of dysuria, frequency or incontinence MUSCULOSKELETAL: Negative for joint pain or swelling. SKIN: Negative for lesions, rash, and itching ENDOCRINE: Negative for cold or heat intolerance, polyuria, polydipsia and goiter NEURO: No history of headaches, syncope, paralysis, seizures or tremors MOOD: Negative for depression, anxiety, or suicidal ideation. EXAM: BP 116/56 Pulse 81 Resp 22 SpO2 94% PHYSICAL EXAM: General Appearance: Well appearing, alert, in no acute distress, well-hydrated, well nourished. Skin: Skin color, texture, turgor normal, no suspicious rashes or lesions. Head: Normocephalic, no masses, lesions, tenderness or abnormalities. Eyes: Anicteric sclera. Extraocular movements are intact. Lungs: Lungs clear to auscultation. No wheezing, rhonchi, rales. Heart: RRR without murmur, gallop, or rubs. No ectopy. Extremities: No deformities, edema, skin discoloration, clubbing or cyanosis. Good capillary refill. Peripheral Pulses: Normal, Capillary refill <2secs, strong peripheral pulses, Pulses palpable. Neurologic: Gait normal. Sensation grossly intact. ASSESSMENT/PLAN: 1. Chronic obstructive pulmonary disease, unspecified COPD type (HCC) - ICD9: 496, ICD10: J44.9 (primary diagnosis) - Stable, continue to take current medication. - Continue with home oxygen. - Keep scheduled appointments with supervisory aide. 2. Essential hypertension - ICD9: 401.9, ICD10: I10 - Controlled - Continue current medications - Recommend home blood pressure monitoring, to bring results to next visit - Encouraged sodium restriction, DASH or Mediterranean diet - Recommend regular aerobic exercise 3. Coronary artery disease involving [place] coronary artery of [place] heart without angina pectoris- ICD9: 414.01, ICD10: I25.10 - Stable, continue take current medication. - Keep scheduled appointments with cardiology. 4. Hyperlipidemia, mixed - ICD9: 272.2, ICD10: E78.2 - Control undetermined, due for labs - Continue current medications - Counseled on healthy diet and regular exercise - LIPID PANEL BASIC - COMPREHENSIVE METABOLIC PANEL 5. Moderate recurrent major depression (HCC) - ICD9: 296.32, ICD10: F33.1 - Stable, continue take current medication. 6. Anxiety - ICD9: 300.00, ICD10: F41.9 - Same plan as #5. 7. Prostate cancer (HCC) - ICD9: 185, ICD10: C61 - Stable, keep scheduled appointments with urology. 8. Elevated glucose - ICD9: 790.29, ICD10: R73.09 - Continue to work on lifestyle changes at home. - HEMOGLOBIN A1C 9. Encounter for immunization - ICD9: V03.89, ICD10: Z23 - VIS provided. - INFLUENZA VACCINE, PRSV FREE, AGE 65+ YR, HIGH DOSE, TRIVALENT (FLUZONE HIGH-DOSE) - [facility] COVID-19 VACCINE AGE 12+ YR (COMIRNATY) Follow up in 6 months or sooner as needed. Discussed treatment plan and patient voices understanding. Patient's questions answered appropriately. Medications and potential side effects were discussed and patient voices understanding. Twila Weston APRN.CNP This note was partially generated using [employer] voice recognition system. Note was reviewed for accuracy. There may be minor misspellings or grammar miscues with [employer] voice recognition. documented in this encounterPromedica Memorial Hospital10-23-2024 NoteL[facility]10-[facility]24 Telephone encounter Note* Telephone Encounter - Jamshid Brown APRN.CNP - 12/22/2023 11:46 AM EDT Noted and agree. Jamshid Brown APRN.CNP [facility]10-22-2024 Miscellaneous Notes* Telephone Encounter - Jamshid Brown APRN.CNP - 12/22/2023 11:46 AM EDT Noted and agree. Jamshid Brown APRN.CNP * Telephone Encounter - Naty Ley RN - 12/22/2023 11:39 AM EDT Jeremiah from [facility] calling to report plan of care for patient and residential will continue to visit 1 time a week for 4 weeks. [facility] will continue to work with patient on wound care. No call back needed. Naty Ley RN documented in this encounterPromedica Memorial Hospital10-22-2024 Telephone encounter Note * Telephone Encounter - Naty Ley RN - 12/22/2023 11:39 AM EDT Jeremiah from [facility] calling to report plan of care for patient and residential will continue to visit 1 time a week for 4 weeks. [facility] will continue to work with patient on wound care. No call back needed. Naty Ley RN [facility]10-21-2024 History of Present illness Narrative* Bela Manzano MD - 12/21/2023 1:00 PM EDT Images from the original note were not included. [facility] SECTION OF REGIONAL CARDIOLOGY Cardiology ([facility]) [address] [id number] OUTPATIENT VISIT DATE 12/21/2023 PRIMARY CARE PHYSICIAN: Mei Cummins [address] [place] [address] HISTORY OF PRESENT ILLNESS: Mr. Corley is a 83 year old gentleman with coronary artery disease and remote coronary bypass grafting, hypertension, dyslipidemia, COPD, with a history of squamous cell carcinoma status post thoracotomy with left lower lobe lung wedge resection and radiation therapy, and peripheral arterial disease with right femoral artery endarterectomy and iliac stent placement in April 2022 who presents for routine follow-up. Patient was admitted to [facility] in September with anemia, GI bleed, and pneumonia. He developed COVID-19 while in the hospital. He has had a slow recovery since his hospital discharge. He has not had symptoms of chest pain, chest pressure, or worsening shortness of breath. He has not had symptoms concerning for congestive heart failure including PND, orthopnea, or lower extremity edema. PAST MEDICAL HISTORY Diagnosis Date Abdominal aortic aneurysm (AAA) without rupture (HCC) 11/19/2018 Atypical chest pain CAD (coronary artery disease) s/p CABG 1999, PCI w/ stents Chronic respiratory failure (HCC) COPD (chronic obstructive pulmonary disease) (HCC) Hyperlipidemia Hyperlipidemia Hypertension Lung cancer (HCC) Prostate cancer (HCC) Dx Dec 2014, s/p radiation, on hormonal therapy Ulcer of right foot (HCC) 04/30/2022 PAST SURGICAL HISTORY Procedure Laterality Date ANGIOGRAM EXTREMITY COLONOSCOPY N/A 09/29/2023 [facility] COLONOSCOPY N/A 10/07/2023 [facility] EGD W/O BRSH SPEC VARICIES INJ N/A 09/29/2023 [facility] EGD W/O [facility] SPEC VARICIES INJ N/A 10/07/2023 [facility] LUNG BIOPSY Left needle biopsy LUNG SURGERY HX 02/20/20 lt lung nodule removed PAST SURGICAL HISTORY OF TURP PAST SURGICAL HISTORY OF 03/02/1999 triple bypass PAST SURGICAL HISTORY OF Left 09/04/2022 Skin biopsy left upper cheek face PAST SURGICAL HISTORY OF LE vascular SOCIAL HISTORY Social History Tobacco Use Smoking status: Former Current packs/day: 0.00 Average packs/day: 2.0 packs/day for 40.0 years (80.0 ttl pk-yrs) Types: Cigarettes Start date: 11/08/1962 Quit date: 05/13/2002 Years since quittin.6 Smokeless tobacco: Never Vaping Use Vaping status: Never Used Substance Use Topics Alcohol use: Not Currently Alcohol/week: 3.0 standard drinks of alcohol Types: 3 Cans of beer per week Comment: light beer Drug use: No FAMILY HISTORY Problem Relation Age of Onset Cancer Mother 49 breast, bone Diabetes Father Heart Father Cancer Sister breast Emphysema Sister Smoker Diabetes Brother Heart Brother other (Other) Brother Parkinsons Diabetes Paternal Grandmother Heart Paternal Grandmother ALLERGIES: ALLERGIES Allergen Reactions Imdur [Isosorbide M* Hives Black out and dizziness MEDICATIONS: metoprolol tartrate, short acting, (LOPRESSOR) 25 mg tablet Take 1 tablet by mouth two times a day.Take 0.5 tab po bid. doxycycline (VIBRA-TABS) 100 mg tablet Take 1 tablet by mouth two times a day for 10 days. albuterol HFA (PROAIR HFA) 90 mcg/actuation inhaler Inhale 2 Puffs as instructed every 4 hours as needed for wheezing/shortness of breath. SPIRIVA RESPIMAT 2.5 mcg/actuation inhaler Inhale 2 Puffs as instructed once daily. collagenase (SANTYL) ointment Apply to affected area once daily. APPLY TO AFFECTED AREA OXYGEN, HOME THERAPY, 5 L/min by Nasal Cannula route continuous. apixaban (ELIQUIS) 5 mg tab(s) Take 1 tablet by mouth two times a day. atorvastatin (LIPITOR) 40 mg tablet Take 1 tablet by mouth once daily. ADVAIR HFA 230-21 mcg/actuation inhaler Inhale 2 Puffs as instructed two times a day. LORazepam (ATIVAN) 1 mg tablet Take 1 tablet by mouth three times a day for 90 days. predniSONE (DELTASONE) 10 mg tablet Take 1 tablet by mouth once daily. ezetimibe (ZETIA) 10 mg tablet Take 1 tablet by mouth once daily. nitroglycerin sublingual (NITROSTAT) 0.4 mg SL tablet Dissolve 1 tablet under the tongue every 5 minutes as needed. acetaminophen 325 mg cap Take 650 mg by mouth every 8 hours as needed. oxyCODONE IR (ROXICODONE) 5 mg immediate release tablet Take 5 mg by mouth four times a day as needed. guaiFENesin (MUCINEX) 600 mg 12 hr tablet Take 1,200 mg by mouth two times a day. DULoxetine (CYMBALTA) 30 mg capsule Take 30 mg by mouth once daily. ondansetron (ZOFRAN) 4 mg tablet 1 tablet as needed. aspirin, enteric coated (ASPIRIN, ENTERIC COATED) 81 mg EC tablet Take 81 mg by mouth once daily. iv contrast (will be provided with radiology test) CT Chest W -Inject, intravenously, once for 1 dose.No IV access, insert saline lock prior to the beginning of sedation, infusion, injection of imaging exam. Discontinue saline lock post exam. If Pt. has a central line or IVAD, may access for administration according to line specific nursing protocol. Once exam is complete flush line and de-accessaccording to line specific nursing protocol in the CT contrast administration guidelines link. iv contrast (will be provided with radiology test) CT Chest W -Inject, intravenously, once for 1 dose.No IV access, insert saline lock prior to the beginning of sedation, infusion, injection of imaging exam. Discontinue saline lock post exam. If Pt. has a central line or IVAD, may access for administration according to line specific nursing protocol. Once exam is complete flush line and de-accessaccording to line specific nursing protocol in the CT contrast administration guidelines link. REVIEW OF SYSTEMS: Review of Systems Constitutional: Positive for malaise/fatigue. Negative for chills, fever and weight loss. HENT: Negative for hearing loss and sore throat. Eyes: Negative for blurred vision and double vision. Respiratory: Positive for shortness of breath. Cardiovascular: Negative. Gastrointestinal: Negative. Genitourinary: Negative for dysuria, frequency, hematuria and urgency. Musculoskeletal: Positive for back pain, joint pain and myalgias. Skin: Negative. Neurological: Negative for dizziness, seizures, loss of consciousness, weakness and headaches. Endo/Heme/Allergies: Negative for environmental allergies. Does not bruise/bleed easily. Psychiatric/Behavioral: Negative for depression. PHYSICAL EXAMINATION: BP 107/59 Pulse 76 Resp 20 Wt 178 lb (80.7kg) SpO2 95% General: Pleasant gentleman sitting appears comfortable no apparent distress alert and oriented x3 HEENT: Carotid upstrokes are brisk bilaterally without bruits. No JVD appreciated. Pulmonary: Diminished breath sounds noted throughout. No rales, wheezes, rhonchi Cardiovascular: Normal S1, S2 with a regularly irregular pulse and normal rate.. No murmurs, rubs, or gallops Extremities: Warm, well-perfused, no lower extremity edema. 2+ radial pulses CARDIOVASCULAR MEDICINE TESTING: ECG in the office 09/29/2022: Normal sinus rhythm with frequent PVCs. Nonspecific ST-T wave changes ECG in the office April 29, 2021: Normal sinus rhythm with frequent PVCs. Possible left atrial enlargement. CORONARY ANGIOGRAPHY 03/14/15 LM: 10-20% ostial stenosis proximal to the stent which is widely patent and extends into the LAD. LAD: Moderate sized vessel which gives a small first diagonal branch and larger second diagonal branch. There is diffuse 10-20% stenosis in the proximal vessel. The distal vessel is of smaller caliper but has no significant stenosis. The first diagonal branch has mild narrowing at its ostium but is a tiny vessel. The larger second diagonal branch is normal. LCX: Non-dominant vessel which gives a tiny first marginal branch and large second bifurcating marginal branch. There is 70-80% diffuse stenosis in the proximal vessel and a second 60-70% stenosis atthe bifurction on the OM2. The OM2 fills competitively from the [place] LCX and the SVG. RCA: Dominant vessel which is stented from the proximal-distal portion. There is 20-30% diffuse ISRwith 50-60% ISR in the mid vessel. The LAD has mild diffuse stenoses with a diiscreet 30-40% lesiondistally. SVG-OM: Patent with 40-50% stenosis in an area of some mild toruosity. FFR was performed of the mid RCA lesion and was 0.87. ASSESSMENT Severe single vessel coronary artery disease of the left circumflex artery with a patent bypass graft to the OM. Moderate right coronary artery disease which was not hemodynamically significant by FFR. Regadenoson Myoview Stress 04/24/2022 CONCLUSIONS: 1. SPECT Perfusion Study: Abnormal. 2. There is mild (<10%) ischemia in the territory of the RCA. 3. There is a small (<10%) fixed perfusion defect in the RCA territory. 4. Left ventricle is normal in size. The left ventricle systolic function is mildly decreased. 5. Right ventricle is normal in size. The right ventricle systolic function is normal. 6. This is an intermediate risk scan due to area of scar/ischemia. Gated Stress IR:3D LVEF % 50 Echocardiogram [facility] 03/25/2023: Normal LV size. Estimated ejection fraction 60% no evidence of diastolic dysfunction Trileaflet aortic valve with aortic valve sclerosis and no significant stenosis Echocardiogram 04/24/2022: - Technically difficult exam due to body habitus. - Exam indication: Hypertension - The left ventricle is normal in size. There is moderate left ventricular hypertrophy. Left ventricular systolic function is normal. EF = 56 5% (2D biplane) Definity contrast used for endocardial border detection. Grade I left ventricular diastolic dysfunction. - The right ventricle is normal in size. Right ventricular systolic function is normal. - The visualized aorta is borderline dilated with a maximal dimension of 3.9 cm. - Mild 1+ mitral regurgitation. - Mild to moderate (1-2+) aortic regurgitation. - Estimated right ventricular systolic pressure is 33 mmHg consistent with normal pulmonary artery pressures. Estimated right atrial pressure is 8 mmHg based on IVC assessment. - Exam was compared with the prior echocardiographic exam performed on 09/23/10. The mitral regurgitation and the aortic regurgitation have increased. PVR 06/18/2022: IMPRESSION Compared to prior study of 12/25/2021, Right waveform tracings and doppler signals have improved. RIGHT SIDE Resting right ankle brachial index: 1.85 Non-compressible arteries, TRAE not accurate. Right toe brachial index: 0.44 Non-compressible vessels, results called by PVR tracings. Abnormal toe brachial index at rest is evidence of peripheral artery disease. Right ankle: Moderate disease at rest. LEFT SIDE Resting left ankle brachial index: 1.85 Non-compressible arteries, TRAE not accurate. Left toe brachial index: 0.45 Non-compressible vessels, results called by PVR tracings. Abnormal toe brachial index at rest is evidence of peripheral artery disease. Left ankle: Moderate disease at rest. PVR 12/18/2020: IMPRESSION Compared to prior study of 12/16/2019, appears no significant change in waveforms at ankle. Non compressible arteries. RIGHT SIDE Resting right ankle brachial index: 1.93 Non-compressible arteries, TRAE not accurate. Right toe brachial index: 0.60 Non-compressible vessels, results called by PVR tracings. Abnormal toe brachial index at rest is evidence of peripheral artery disease. Right ankle: Moderate disease at rest. LEFT SIDE Resting left ankle brachial index: 1.93 Non-compressible arteries, TRAE not accurate. Left toe brachial index: 0.61 Non-compressible vessels, results called by PVR tracings. Abnormal toe brachial index at rest is evidence of peripheral artery disease. Left ankle: Moderate disease at rest. ECG in the office 10/15/2020: Sinus rhythm with occasional PVCs. Normal axis and intervals. No significant ST or T wave changes IMPRESSION: Mr. Corley is a 83 year old gentleman with known coronary artery disease prior coronary bypass grafting in 1999, COLEMAN-LAD, FRANCIA-RCA, SVG-left circumflex/OM). 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 He underwent stenting of the left maincoronary artery. Most recent cardiac catheterization 2015 as noted above. He is also treated for hypertension, dyslipidemia, and COPD. He has a history of small cell lung cancer and is status post left lower lobe wedge resection and radiation therapy. He has a history of peripheral arterial diseaseand underwent right femoral artery endarterectomy with right iliac stent placement April 2022. He has a history of DVT and PE March 2023, hypertension, and dyslipidemia. He presents the office for routine follow-up. PLAN AND RECOMMENDATIONS:\ 1. Coronary artery disease involving [place] coronary artery of [place] heart without angina pectoris- ICD9: 414.01, ICD10: I25.10 (primary diagnosis) Difficult to evaluate the patient in terms of symptoms. Although, he has not had overt chest pain or pressure. He has chronic shortness of breath on minimal exertion which is unchanged from prior. Hehad a low risk stress test completed April 2022. Continue current medical therapy and risk factor modification 2. Essential hypertension - ICD9: 401.9, ICD10: I10 Adequate control on current regimen 3. Hyperlipidemia, mixed - ICD9: 272.2, ICD10: E78.2 Maintained on atorvastatin 40 mg daily. Fasting blood work from April 2023 was reviewed. LDL cholesterol 99 mg/dL. At that time I had added Zetia 10 mg daily. Will need to repeat fasting blood work for repeat assessment 4. PAD (peripheral artery disease) (HCC) - ICD9: 443.9, ICD10: I73.9 Bela Manzano MD documented in this encounterPromedica Memorial Hospital10-21-2024 NoteLima [facility]10-15-2024 Telephone encounter Note* Telephone Encounter - Kailash Cordova APRN.CNP - 12/15/2023 9:33 AM EDT Called to discuss culture results and discuss symptoms. Had noted that he was back to coughing up normal yellowish sputum but coughed up a very small amount of blood again today. No other concerning symptoms. Will be finished with course of Augmentin and Levaquin today. Instructed to start taking Doxycycline based on susceptibility results. Order sent to preferred pharmacy. Patient and verbalized understanding. Kailash Cordova APRN.CNP [facility]10-15-2024 Miscellaneous Notes* Telephone Encounter - Kailash Cordova APRN.CNP - 12/15/2023 9:33 AM EDT Called to discuss culture results and discuss symptoms. Had noted that he was back to coughing up normal yellowish sputum but coughed up a very small amount of blood again today. No other concerning symptoms. Will be finished with course of Augmentin and Levaquin today. Instructed to start taking Doxycycline based on susceptibility results. Order sent to preferred pharmacy. Patient and verbalized understanding. Kailash Cordova APRN.DANELLE * Telephone Encounter - Marsha Arboleda MA - 12/15/2023 8:27 AM EDT Patients significant other contacted the office. States they were to call back in 1 week with an update. Spouse refused to give any other information. Asking to speak directly with provider. I advised theprovider may not be able to return their call right away and asked again if there was any information I could share. She states its in regards to his medication, she will know what this is about. Patient or spouse can be reached back at [phone]. documented in this encounterPromedica Memorial Hospital10-15-2024 Telephone encounter Note * Telephone Encounter - Marsha Arboleda MA - 12/15/2023 8:27 AM EDT Patients significant other contacted the office. States they were to call back in 1 week with an update. Spouse refused to give any other information. Asking to speak directly with provider. I advised theprovider may not be able to return their call right away and asked again if there was any information I could share. She states its in regards to his medication, she will know what this is about. Patient or spouse can be reached back at [phone]. [facility]10-11-2024 Telephone encounter Note* Telephone Encounter - Yazmin Tatum OCCA - 12/11/2023 2:35 PM EDT ANUP Moore with [facility] and no answer. Left detailed VM on secure and confidential VM with providers instructions below. Left office number for return call if any further questions. SERENA Garcia [facility]10-11-2024 Miscellaneous Notes* Telephone Encounter - Yazmin Tatum OCCA - 12/11/2023 2:35 PM EDT TC to Teresa with [facility] and no answer. Left detailed VM on secure and confidential VM with providers instructions below. Left office number for return call if any further questions. SERENA Garcia * Telephone Encounter - Twila Weston APRN.CNP - 12/11/2023 2:14 PM EDT Can you please call the patient back and let him know that I would recommend taking his metoprolol if the heart rate is greater than 100. Thank you Twila Weston APRN.LEGAL STENOGRAPHER * Telephone Encounter - Padma Butler LPN - 12/11/2023 1:33 PM EDT Patient currently being treated for pneumonia. Patient c/o fatigue, pulse is in the 103-110. PATIENT does not always take his metoprolol 25 mg. Nurse is asking for parameters for his pulse. PATIENT has no symptoms. He just gets worried about his heart rate going into the 50's. Patient current bp is132/82. Again just asking for parameters for when heart rate is high and when to take metoprolol 25 mg Please review and advise Padma Butler LPN documented in this encounterPromedica Memorial Hospital10-11-2024 Telephone encounter Note * Telephone Encounter - Twila Weston APRN.CNP - 12/11/2023 2:14 PM EDT Can you please call the patient back and let him know that I would recommend taking his metoprolol if the heart rate is greater than 100. Thank you Twila Weston APRN.LEGAL STENOGRAPHER [facility] Work Phone: [phone] Telephone encounter Note* Telephone Encounter - Padma Butler LPN - 12/11/2023 1:33 PM EDT Patient currently being treated for pneumonia. Patient c/o fatigue, pulse is in the 103-110. PATIENT does not always take his metoprolol 25 mg. Nurse is asking for parameters for his pulse. PATIENT has no symptoms. He just gets worried about his heart rate going into the 50's. Patient current bp is132/82. Again just asking for parameters for when heart rate is high and when to take metoprolol 25 mg Please review and advise Padma Butler LPN [facility]10-11-20[facility] Telephone encounter Note* Telephone Encounter - Brigette Campos RN - 12/11/2023 1:29 PM EDT [facility] home care called with update. They will continue to see him once a week for 2 more weeks and then they will recert him for his wound care. Brigette Campos RN [facility]10-11-2024 Miscellaneous Notes* Telephone Encounter - Brigette Campos RN - 12/11/2023 1:29 PM EDT [facility] home care called with update. They will continue to see him once a week for 2 more weeks and then they will recert him for his wound care. Brigette Campos RN documented in this encounterPromedica Memorial Hospital10-08-2024 Instructions* Patient Instructions* Kailash Cordova APRN.CNP - 12/08/2023 3:07 PM EDT Start antibiotics, Levaquin and Augmentin. Lab work today. Within the next day or so, collect sputum and return to the lab. Repeat chest CT specific to pneumonia in approximately 6 weeks. Present to the ED if you begin to experience worsening shortness of breath, coughing up large amounts of blood, are needing more oxygen, develop infectious symptoms (fevers, chills, etc). Or any other symptoms that suggest worsening pneumonia. documented in this encounterPromedica Memorial Hospital10-08-2024 History of Present illness Narrative* Kailash Cordova APRN.CNP - 12/08/2023 1:30 PM EDT Images from the original note were not included. 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 Current inhaler therapy includes Advair, Spiriva and PRN Albuterol (attempted to combine therapy with Trelegy at [facility] but patient did not tolerate). He is also on chronic oral steriods, utilizesmucous clearance techniques, vest therapy and supplemental O2. He was admitted to [facility] 09/27-09/29 for acute hypoxia due to COVID and Pneumonia. He required Remdesivir and IV solu-medrol along with IV Ceftriaxone and Azithromycin. Discharged home on 4L NC. He was hospitalized again in October 07- 10/16 for COPD exacerbation and worsening hypoxemia d/t anemia related to GI bleed. He was given 3 units PRBC and underwent EGD/colonoscopy. Discharged on Levaquin and steroid taper. Discharged home on 5L NC. Since being home, he reports he was making strides in recovery. His oxygen level is typically 95% and above when he checks at home. Today, patient reports daily cough with thick, light green sputum. He reports that 8 days ago, he was coughing aggressively, trying to get sputum out and reports he coughed up bright red blood mixed in with his sputum. This has been ongoing for the last 8 days. Coughs up approx 1 tsp. Now not bright red blood and more burgundy/brown. No wheezing. Dyspnea is at his baseline. Activity is pretty minimal, functional walking around the house. He continues on chronic prednisone and receives oxycodone from palliative medicine services through hospice for his SOB. DME: [facility] Currently wearing 5L O2 continuously PAST MEDICAL HISTORY Diagnosis Date Abdominal aortic aneurysm (AAA) without rupture (HCC) 11/19/2018 Atypical chest pain CAD (coronary artery disease) s/p CABG 1999, PCI w/ stents Chronic respiratory failure (HCC) COPD (chronic obstructive pulmonary disease) (HCC) Hyperlipidemia Hyperlipidemia Hypertension Lung cancer (HCC) Prostate cancer (HCC) Dx Dec 2014, s/p radiation, on hormonal therapy Ulcer of right foot (HCC) 04/30/2022 Allergies: Imdur [Isosorbide M* Hives Comment:Black out and dizziness Medication List Accurate as of December 04, 2023 11:51 AM. If you have any questions, ask your nurse or doctor. CONTINUE taking these medications acetaminophen 325 mg Cap ADVAIR HFA 230-21 mcg/actuation inhaler Generic drug: fluticasone-salmeterol HFA albuterol HFA 90 mcg/actuation inhaler Commonly known as: PROAIR HFA Inhale 2 Puffs as instructed every 4 hours as needed for Wheezing/Shortness of Breath. apixaban 5 mg tab(s) Commonly known as: ELIQUIS Take 1 tablet by mouth two times a day. aspirin, enteric coated 81 mg EC tablet Commonly known as: ASPIRIN, ENTERIC COATED atorvastatin 40 mg tablet Commonly known as: LIPITOR Take 1 tablet by mouth once daily. DULoxetine 30 mg capsule Commonly known as: CYMBALTA ezetimibe 10 mg tablet Commonly known as: ZETIA Take 1 tablet by mouth once daily. furosemide 20 mg tablet Commonly known as: LASIX Take 1 tablet by mouth once daily. guaiFENesin 600 mg 12 hr tablet Commonly known as: MUCINEX * iv contrast (will be provided with radiology test) CT Chest W -Inject, intravenously, once for 1 dose.No IV access, insert saline lock prior to the beginning of sedation, infusion, injection of imaging exam. Discontinue saline lock post exam. If Pt. has a central line or IVAD, may access for administration according to line specific nursing protocol. Once exam is complete flush line and de-access according to line specific nursing protocol in theCT contrast administration guidelines link. * iv contrast (will be provided with radiology test) CT Chest W -Inject, intravenously, once for 1 dose.No IV access, insert saline lock prior to the beginning of sedation, infusion, injection of imaging exam. Discontinue saline lock post exam. If Pt. has a central line or IVAD, may access for administration according to line specific nursing protocol. Once exam is complete flush line and de-access according to line specific nursing protocol in theCT contrast administration guidelines link. LORazepam 1 mg tablet Commonly known as: ATIVAN Take 1 tablet by mouth three times a day for 90 days. metoprolol tartrate (short acting) 25 mg tablet Commonly known as: LOPRESSOR Take 1 tablet by mouth three times a day. nitroglycerin sublingual 0.4 mg SL tablet Commonly known as: NITROSTAT Dissolve 1 tablet under the tongue every 5 minutes as needed. ondansetron 4 mg tablet Commonly known as: ZOFRAN oxyCODONE IR 5 mg immediate release tablet Commonly known as: ROXICODONE OXYGEN (HOME THERAPY) predniSONE 10 mg tablet Commonly known as: DELTASONE Take 1 tablet by mouth once daily. SantyL ointment Generic drug: collagenase Apply to affected area once daily. APPLY TO AFFECTED AREA SPIRIVA RESPIMAT 2.5 mcg/actuation inhaler Generic drug: tiotropium bromide * This list has 2 medication(s) that are the same as other medications prescribed for you. Read thedirections carefully, and ask your doctor or other care provider to review them with you. DATA: I personally reviewed and analyzed all labs, radiographs and available pulmonary function testing PFT: 09/2022 IMPRESSION: Spirometry indicates severe obstruction. There was not a significant bronchodilator response. The diffusing capacity is moderately reduced. CXR: Last XR Chest - Impression Only XR CHEST 1V FRONTAL Exam End: 06/17/2023 2:16 PM (Final result) Impression: IMPRESSION: No pneumothorax status post left lung biopsy ... CT Chest: 11/13/2023 IMPRESSION: 1. New consolidation in the left upper lobe obscuring a previously described lung lesion which is most likely due to posttreatment change. 2. Marked improvement of nodular thickening of the wall of a cystic lesion in the left lower lobe. 3. There is a small residual groundglass opacity in the medial left lower lobe in the location of a previously described lung nodule. 4. There are some new groundglass and reticular opacities in the posterior right lower lobe which may be infectious/inflammatory 5. Borderline enlarged AP window lymph node Neonatal Pediatric Nurse: ARTEM Transcribe Date/Time: Nov 18 2023 1:24P Dictated by : MIRNA MILTON MD This examination was interpreted and the report reviewed and electronically signed by: MIRNA MILTON MD on Nov 18 2023 1:41PM EST Results-Findings * * *Final Report* * * DATE OF EXAM: Nov 13 2023 3:25PM [facility] 0539 - CT CHEST W IVCON / PROCEDURE REASON: multiple diagnoses * * * * Physician Interpretation * * * * EXAMINATION: CHEST CT WITH CONTRAST CLINICAL HISTORY: Squamous cell carcinoma of lung Technique: Spiral CT acquisition of the chest from the thoracic inlet to the upper abdomen following IV contrast. MQ: [id number] Contrast: 50 mL Omnipaque [address] Radiation dose: Integrated Dose-length product (DLP) for this visit = 223 mGy*cm CT Dose Reduction Employed: Automated exposure control(AEC) and iterative recon Comparison: CT chest 07/30/2023 RESULT: Limitations: None. Lines, tubes, and devices: None. Lung parenchyma and airways: 11 mm groundglass opacity in the medial left lower lobe in the location of the previously described nodule. There is a 2.5 x 2 cm thin-walled cystic structure in the posterior left lower lobe (7:87). There has been near complete resolution of nodular thickening of the wall of this structure compared to the prior study. There is a new left upper lobe consolidation with adjacent groundglass and reticular opacities obscuring the previously described pulmonary nodule. Stable 1.6 x 1.1 cm nodular density in the right lung base (7:150). Stable subcentimeter nodules in the left lung. There are some new groundglass and reticular opacities in the posterior right lower lobe. Centrilobular emphysema. Central airways are patent. Pleural space: No new pleural effusion. Stable appearance of a loculated pneumothorax in the lateral left lower hemithorax. Stable pleural calcifications. Lower neck, lymph nodes, and mediastinum: The imaged thyroid gland is normal. Borderline enlarged AP window lymph node measures 10 mm short axis (5:64), previously 7 mm. Heart, pericardium, and thoracic vessels: The thoracic aorta and main pulmonary artery are normal in caliber. The cardiac chambers are normal in size. Coronary artery atherosclerotic calcifications are noted, although the study is not optimized for coronary assessment. No pericardial effusion or thickening. Bones and soft tissues: No destructive bone lesion. Median sternotomy wires are noted. No chest wall mass. Upper abdomen: No abnormality in the imaged upper abdomen. Review of Systems Constitutional: Negative for activity change, appetite change and unexpected weight change. HENT: Negative for congestion, mouth sores, postnasal drip and sinus pressure. Respiratory: Positive for cough and shortness of breath. Negative for wheezing. Cardiovascular: Negative for chest pain, palpitations and leg swelling. Musculoskeletal: Positive for arthralgias and myalgias. Neurological: Negative for dizziness, weakness and light-headedness. BP 127/71 Pulse (!) 57 Temp 36.6 C (97.8 F) (Temporal) Wt 79.8 kg (176 lb) SpO2 95% BMI 24.55 kg/m Physical Exam Constitutional: General: He is not in acute distress. Appearance: Normal appearance. He is normal weight. He is not ill-appearing. HENT: Head: Normocephalic. Nose: No rhinorrhea. Mouth/Throat: Mouth: Mucous membranes are moist. Pharynx: No oropharyngeal exudate. Cardiovascular: Rate and Rhythm: Normal rate and regular rhythm. Heart sounds: Normal heart sounds. Pulmonary: Effort: Pulmonary effort is normal. No respiratory distress. Breath sounds: No wheezing. Comments: Diminished. Musculoskeletal: Right lower leg: No edema. Left lower leg: No edema. Lymphadenopathy: Cervical: No cervical adenopathy. Skin: General: Skin is warm and dry. Capillary Refill: Capillary refill takes less than 2 seconds. Findings: Bruising present. Neurological: General: No focal deficit present. Mental Status: He is alert. ASSESSMENT/PLAN: 1. Hospital discharge follow-up - ICD9: V67.59, ICD10: Z09 (primary diagnosis) - most recent hospitalization 10/04-10/16 d/t COPD exacerbation and worsening hypoxia in the setting of acute anemia. - see #2-4 2. Pneumonia of left lung due to infectious organism, unspecified part of lung - ICD9: 486, ICD10: J18.9 3. Hemoptysis - ICD9: 786.30, ICD10: R04.2 - CT scan from 11/12 showing new SULAIMAN pneumonia. Review of [facility] chest CT on 10/04 without SULAIMAN consolidation. - COMPLETE BLOOD COUNT AND DIFFERENTIAL - CT CHEST WO IVCON - RESPIRATORY CULTURE AND STAIN - Will obtain sputum sample and start treatment with Levaquin and Augmentin - chest CT follow-up in approx 6 weeks for resolution - currently stable without other concerning respiratory/systemic symptoms. Instructed on red flag symptoms to monitor for to know when to present to the ED. 4. 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) - ICD9: 496, ICD10: J44.9 - spirometry from 2022 with severe obstruction - Continue Advair, Spiriva and PRN Albuterol (previously did not tolerate Trelegy) - uses oxycodone through [facility] [employer] for SOB 5. Chronic hypoxemic respiratory failure (HCC) - ICD9: 518.83, 799.02, ICD10: J96.11 - currently stable on 5L. Reports compliance with O2 - unable to perform oximetry with ambulation d/t weakness 6. History of cancer of lower lobe bronchus or lung - ICD9: V10.11, ICD10: Z85.118 - squamous cell carcinoma of the lung s/p wedge resection 2019 - negative biopsy 06/2023 - followed by Dr. Meraz with surveillance CT, scheduled March 2024 F/u scheduled March 2024 Portions of this documentation were copied and pasted from previous office visit notes in order to provide a cohesive continuity of the history. The note has been reviewed and edited and updated as necessary. Kailash Cordova APRN.LEGAL STENOGRAPHER documented in this encounterPromedica [facility]10-08-2024 NoteL[facility]10-[facility] Instructions* Patient Instructions* Juan Carlos Viveros - 12/07/2023 2:44 PM EDT Cleanse wound daily with saline Apply santyl and 2 x 2 guaze Light tubigrip Avoid shoes that rub Follow-up in 2-3 weeks documented in this encounterPromedica Memorial Hospital10-07-2024 NoteL[facility]10-07-2024 History of Present illness Narrative* Juan Carlos Viveros - 12/07/2023 2:42 PM EDT FOLLOW UP PODIATRIC OFFICE VISIT Chief Complaint: This 83 year old who presents for follow up:left ankle ulceration. Patient presents to clinic for follow-up left ankle ulceration. Patient is currently applying santyl to left foot Denies any drainage Feels the wound is doing better. PAIN EVALUATION 12/07/2023 1429 Pain Level: 4 Pain Location: Ankle-Left Description: Sore Frequency: Intermittent Intervention/Comfort measure: Relaxation;Reposition Hemoglobin A1C Date Value Ref Range Status 06/24/2022 5.0 4.3 - 5.6 % Final Comment: [place] [employer] guidelines indicate that patients with HgbA1c in the range 5.7-6.4% are at increased risk for development of diabetes, and intervention by lifestyle modification may be beneficial. HgbA1c greater or equal to 6.5% is considered diagnostic of diabetes. PCP: Mei Cummins MD PAST MEDICAL HISTORY Diagnosis Date Abdominal aortic aneurysm (AAA) without rupture (HCC) 11/19/2018 Atypical chest pain CAD (coronary artery disease) s/p CABG 1999, PCI w/ stents Chronic respiratory failure (HCC) COPD (chronic obstructive pulmonary disease) (HCC) Hyperlipidemia Hyperlipidemia Hypertension Lung cancer (HCC) Prostate cancer (HCC) Dx Dec 2014, s/p radiation, on hormonal therapy Ulcer of right foot (HCC) 04/30/2022 Current Outpatient Medications Medication Sig collagenase (SANTYL) ointment Apply to affected area once daily. APPLY TO AFFECTED AREA OXYGEN, HOME THERAPY, 5 L/min by Nasal Cannula route continuous. metoprolol tartrate, short acting, (LOPRESSOR) 25 mg tablet Take 1 tablet by mouth three times a day. furosemide (LASIX) 20 mg tablet Take 1 tablet by mouth once daily. apixaban (ELIQUIS) 5 mg tab(s) Take 1 tablet by mouth two times a day. atorvastatin (LIPITOR) 40 mg tablet Take 1 tablet by mouth once daily. SPIRIVA RESPIMAT 2.5 mcg/actuation inhaler Inhale 2 Puffs as instructed once daily. ADVAIR HFA 230-21 mcg/actuation inhaler Inhale 2 Puffs as instructed two times a day. iv contrast (will be provided with radiology test) CT Chest W -Inject, intravenously, once for 1 dose.No IV access, insert saline lock prior to the beginning of sedation, infusion, injection of imaging exam. Discontinue saline lock post exam. If Pt. has a central line or IVAD, may access for administration according to line specific nursing protocol. Once exam is complete flush line and de-accessaccording to line specific nursing protocol in the CT contrast administration guidelines link. predniSONE (DELTASONE) 10 mg tablet Take 1 tablet by mouth once daily. ezetimibe (ZETIA) 10 mg tablet Take 1 tablet by mouth once daily. iv contrast (will be provided with radiology test) CT Chest W -Inject, intravenously, once for 1 dose.No IV access, insert saline lock prior to the beginning of sedation, infusion, injection of imaging exam. Discontinue saline lock post exam. If Pt. has a central line or IVAD, may access for administration according to line specific nursing protocol. Once exam is complete flush line and de-accessaccording to line specific nursing protocol in the CT contrast administration guidelines link. nitroglycerin sublingual (NITROSTAT) 0.4 mg SL tablet Dissolve 1 tablet under the tongue every 5 minutes as needed. acetaminophen 325 mg cap Take 650 mg by mouth every 8 hours as needed. oxyCODONE IR (ROXICODONE) 5 mg immediate release tablet Take 5 mg by mouth four times a day as needed. guaiFENesin (MUCINEX) 600 mg 12 hr tablet Take 1,200 mg by mouth two times a day. DULoxetine (CYMBALTA) 30 mg capsule Take 30 mg by mouth once daily. ondansetron (ZOFRAN) 4 mg tablet 1 tablet as needed. aspirin, enteric coated (ASPIRIN, ENTERIC COATED) 81 mg EC tablet Take 81 mg by mouth once daily. albuterol HFA (PROAIR HFA) 90 mcg/actuation inhaler Inhale 2 Puffs as instructed every 4 hours as needed for Wheezing/Shortness of Breath. LORazepam (ATIVAN) 1 mg tablet Take 1 tablet by mouth three times a day for 90 days. No current facility-administered medications for this visit. ALLERGIES Allergen Reactions Imdur [Isosorbide M* Hives Black out and dizziness PAST SURGICAL HISTORY Procedure Laterality Date ANGIOGRAM EXTREMITY LUNG BIOPSY Left needle biopsy LUNG SURGERY HX 02/20/20 lt lung nodule removed PAST SURGICAL HISTORY OF TURP PAST SURGICAL HISTORY OF 03/02/1999 triple bypass PAST SURGICAL HISTORY OF Left 09/04/2022 Skin biopsy left upper cheek face PAST SURGICAL HISTORY OF LE vascular Physical Exam: OBJECTIVE: Constitutional: Pt is a well developed 83 year old male who is alert, oriented, cooperative and in no apparent distress. Eyes: Following during examination. No redness or drainage. Respiratory: RR normal and nonlabored. Even breathing. No evidence of distress. Psychology: Patient is engaged during conversation. Normal affect and mood. Does not appear depressed or anxious. NVSI unchanged from previous visit. Dermatological: Ulceration #1 Location: left medial ankle Measurement: 6 mm x 4 mm x 1 mm Base: fibrotic Musculoskeletal/Orthopaedic: Patient has no pain to palpation of left ankle ASSESSMENT: (L98.491) Skin ulcer, limited to breakdown of skin (HCC) (primary encounter diagnosis) (I73.9) Peripheral arterial disease (HCC) PLAN: Discussed ulceration of left medial ankle. Ulceration is slightly smaller than last visit Continue with santyl and light compression Defer debridement due to pad F/u in 2-3 weeks Juan Carlos Viveros DPM * Jacy Sunshine LPN - 12/07/2023 2:29 PM EDT AMB ROOMING INTAKE FLOWSHEET DATA Pain Pain Level: 4 Pain Location: Ankle-Left Description: Sore Frequency: Intermittent Intervention/Comfort measure: Relaxation, Reposition Patient presents with: Left Ankle - Established Patient, Ulcer, Pain Jacy Sunshine LPN documented in this encounterPromedica [facility] Hospital10-07-2024 NoteL[facility]10-04-2024 Telephone encounter Note* Telephone Encounter - Tyrell Lamar LPN - 12/04/2023 1:01 PM EDT Provider aware Tyrell Lamar LPN [facility]10-04-2024 Miscellaneous Notes* Telephone Encounter - Tyrell Lamar LPN - 12/04/2023 1:01 PM EDT Provider aware Tyrell Lamar LPN * Telephone Encounter - Arpita Cano - 12/04/2023 9:37 AM EDT Patient is scheduled for hospital follow up with Kailash on 12/07, however patient is denying doing th oximetry test, states he cannot do it. Please review and advise. Arpita Cano December 04, 2023 9:38 AM * Telephone Encounter - Tyrell Lamar LPN - 12/02/2023 2:51 PM EDT Per DC summary available in scanned documents, patient required 4L at rest and 6L with exertion at time of discharge. Last in office oximetry is from 10/2022. Patient has not followed up since discharge. Tyrell Lamar LPN documented in this encounterPromedica Memorial Hospital10-04-2024 Telephone encounter Note * Telephone Encounter - Arpita Cano - 12/04/2023 9:37 AM EDT Patient is scheduled for hospital follow up with Kailash on 12/07, however patient is denying doing th oximetry test, states he cannot do it. Please review and advise. Arpita Cano December 04, 2023 9:38 AM [facility]10-02-2024 Telephone encounter Note* Telephone Encounter - Tyrell Lamar LPN - 12/02/2023 2:51 PM EDT Per DC summary available in scanned documents, patient required 4L at rest and 6L with exertion at time of discharge. Last in office oximetry is from 10/2022. Patient has not followed up since discharge. Tyrell Lamar LPN [facility]09-26-2024 Telephone encounter Note* Telephone Encounter - Zen Lopez LPN - 11/26/2023 9:53 AM EDT Phoned Naty left detailed message with orders, notes below from Dr Cummins on voicemail. [facility]09-26-2024 Miscellaneous Notes* Telephone Encounter - Zen Lopez LPN - 11/26/2023 9:53 AM EDT Phoned Naty left detailed message with orders, notes below from Dr Cummins on voicemail. * Telephone Encounter - Mei Cummins MD - 11/26/2023 9:44 AM EDT OK for HH phillips as requested. He may use OTC saline eye drops for the eyes. Mei Cummins MD * Telephone Encounter - Coco Arriaga RN - 11/25/2023 3:14 PM EDT Naty, [facility] Nurse calling with the following: States she evaluated patient today and would like to see patient 2 times per week for 2 weeks for wound management/observation if provider agreeable. States patient has a left inner ankle wound that is being treated by Dr. Viveros in Podiatry. Patient ordered Santyl and dry clean dressing daily toarea. Update: patient has frequent watery eyes, but complains they are dry and annoying. Using towel todry them often. JOSE M with PCP: 10/29/23, NOV: 12/22/23. Call Naty with any recommendations. Call Naty with reply: [phone]. Thank you. documented in this encounterPromedica Memorial Hospital09-26-2024 Telephone encounter Note * Telephone Encounter - Mei Cummins MD - 11/26/2023 9:44 AM EDT OK for phillips as requested. He may use OTC saline eye drops for the eyes. Mei Cummins MD [facility]09-26-2024 Telephone encounter Note* Telephone Encounter - Yina Stringer RN - 11/26/2023 8:59 AM EDT Called Naty from [facility] home care. Verbal order confirmation given for wound care. [facility]09-26-2024 Telephone encounter Note* Telephone Encounter - Yina Stringer RN - 11/26/2023 8:59 AM EDT Images from the original note were not included. Juan Carlos Viveros [facility] Podiatry Pool10 hours ago (10:50 PM) Patient is to apply santyl to left ankle wound daily followed by toña rmap. Juan Carlos Viveros DPM [facility]09-26-2024 Miscellaneous Notes* Telephone Encounter - Yina Stringer RN - 11/26/2023 8:59 AM EDT Called Naty from [facility] home care. Verbal order confirmation given for wound care. * Telephone Encounter - Yina Stringer RN - 11/26/2023 8:59 AM EDT Images from the original note were not included. Juan Carlos Viveros [facility] Podiatry Pool10 hours ago (10:50 PM) Patient is to apply santyl to left ankle wound daily followed by guaze wrap. Juan Carlos Viveros DPM * Telephone Encounter - Jocelin Marquez MA - 11/25/2023 3:59 PM EDT Naty from [facility] calling and states they need wound care orders for the patient. documented in this encounterPromedica Memorial Hospital09-25-2024 Telephone encounter Note * Telephone Encounter - Jocelin Marquez MA - 11/25/2023 3:59 PM EDT Naty from [facility] calling and states they need wound care orders for the patient. [facility]09-25-[facility] Telephone encounter Note* Telephone Encounter - Coco Arriaga RN - 11/25/2023 3:14 PM EDT Naty, [facility] Nurse calling with the following: States she evaluated patient today and would like to see patient 2 times per week for 2 weeks for wound management/observation if provider agreeable. States patient has a left inner ankle wound that is being treated by Dr. Viveros in Podiatry. Patient ordered Santyl and dry clean dressing daily toarea. Update: patient has frequent watery eyes, but complains they are dry and annoying. Using towel todry them often. JOSE M with PCP: 10/29/23, NOV: 12/22/23. Call Naty with any recommendations. Call Naty with reply: [phone]. Thank you. [facility]09-25-2024 Telephone encounter Note* Telephone Encounter - Alethea Childress RN - 11/25/2023 10:30 AM EDT Contacted patient as requested by Dr. Vigil to offer appt with [place] provider to discuss wound concerns and possible need for intervention. Patient is currently seeing Dr. Viveros and he contact Dr. Vigil. Per patient and , he is not up for coming to [place]. He was recently d/c from the [facility] and is not up for appt. They are going to follow wound orders from Dr. Viveros to see if there is any improvement. They will call office to schedule appt in [place] if wound worsens [facility]09-25-2024 Miscellaneous Notes* Telephone Encounter - Alethea Childress RN - 11/25/2023 10:30 AM EDT Contacted patient as requested by Dr. Vigil to offer appt with [place] provider to discuss wound concerns and possible need for intervention. Patient is currently seeing Dr. Viveros and he contact Dr. Vigil. Per patient and , he is not up for coming to [place]. He was recently d/c from the [facility] and is not up for appt. They are going to follow wound orders from Dr. Viveros to see if there is any improvement. They will call office to schedule appt in [place] if wound worsens documented in this encounterPromedica Memorial Hospital09-23-2024 History of Present illness Narrative* Raven Lyon RT(R) - 11/23/2023 11:30 AM EDT Radiology Service Progress Note PATIENT NAME: Oswaldo Corley DATE OF SERVICE: November 23, 2023 TIME: 11:23 AM PATIENT IDENTITY VERIFICATION COMPLETED USING TWO (2) IDENTIFIERS: Name and Date of confirmedby patient verbally. FALL SCREENING: Has the patient had 2 falls in the last year or 1 fall with injury or currently using an Ambulatory Assistive Device (Walker, Cane, Wheelchair, Crutches, etc.)? Yes, Patient High Riskfor Falls What interventions were put in place to prevent falls during this visit? Offered Assistance with Transfers/Clothing, Instructed Patient to Remain Seated (Not on Exam Table) Until Exam, and Increased Observations by Caregivers PATIENT GENDER DATA: Male PATIENT RELEVANT IMPLANT DATA REVIEWED: Yes PATIENT PRESENTS WITH AN IMPLANTABLE OR ATTACHED TOWER HELPER: No RADIOLOGY DEPARTMENT: General X-ray: Exam(s) Completed: Lower Extremity X- Ray(s): Ankle, Left PERIPHERAL IV DATA: Not applicable SIGNED BY: RT Eduard(R) November 23, 2023 11:23 AM documented in this encounterPromedica Memorial Hospital09-23-2024 [facility]09-23-2024 Instructions* Patient Instructions* Juan Carlos Viveros - 11/23/2023 11:00 AM EDT Cleanse wound daily with saline Dry thoroughly Apply santyl to left ankle wound Secure with 2 x2 guaze and nonadherent dressing. documented in this encounterPromedica Memorial Hospital09-23-2024 NoteL[facility] History of Present illness Narrative* Juan Carlos Viveros - 11/23/2023 10:48 AM EDT Initial Podiatric Office Visit: Chief Complaint: This 83 year old male who presents with chief complaint:left medial ankle ulceration HPI Patient presents to clinic for evaluation of left ankle States that last Thursday, he noticed a small wound to the medial aspect of left ankle. He presented to the urgent care. Was placed on keflex x 7 days He is treating with topical antibiotic Patient states the wound is not getting any worse. Thinks the foot may have rubbed on the other foot leading to skin breakdown. PAIN EVALUATION 11/23/2023 1030 Pain Level: 4 Pain Location: Ankle-Left Description: Aching Duration Amount of Time: 1 Duration Units: Weeks Frequency: Continuous Intervention/Comfort measure: Relaxation;Reposition Hemoglobin A1C (%) Date Value 06/24/2022 5.0 04/30/2022 5.4 01/04/2018 5.5 PCP: Mei Cummins MD PAST MEDICAL HISTORY Diagnosis Date Abdominal aortic aneurysm (AAA) without rupture (HCC) 11/19/2018 Atypical chest pain CAD (coronary artery disease) s/p CABG 1999, PCI w/ stents Chronic respiratory failure (HCC) COPD (chronic obstructive pulmonary disease) (HCC) Hyperlipidemia Hyperlipidemia Hypertension Lung cancer (HCC) Prostate cancer (HCC) Dx Dec 2014, s/p radiation, on hormonal therapy Ulcer of right foot (HCC) 04/30/2022 Current Outpatient Medications Medication Sig iv contrast (will be provided with radiology test) CT Chest W -Inject, intravenously, once for 1 dose.No IV access, insert saline lock prior to the beginning of sedation, infusion, injection of imaging exam. Discontinue saline lock post exam. If Pt. has a central line or IVAD, may access for administration according to line specific nursing protocol. Once exam is complete flush line and de-accessaccording to line specific nursing protocol in the CT contrast administration guidelines link. OXYGEN, HOME THERAPY, 5 L/min by Nasal Cannula route continuous. cephALEXin (KEFLEX) 500 mg capsule Take 1 capsule by mouth four times daily for 5 days. metoprolol tartrate, short acting, (LOPRESSOR) 25 mg tablet Take 1 tablet by mouth three times a day. furosemide (LASIX) 20 mg tablet Take 1 tablet by mouth once daily. apixaban (ELIQUIS) 5 mg tab(s) Take 1 tablet by mouth two times a day. atorvastatin (LIPITOR) 40 mg tablet Take 1 tablet by mouth once daily. SPIRIVA RESPIMAT 2.5 mcg/actuation inhaler Inhale 2 Puffs as instructed once daily. ADVAIR HFA 230-21 mcg/actuation inhaler Inhale 2 Puffs as instructed two times a day. iv contrast (will be provided with radiology test) CT Chest W -Inject, intravenously, once for 1 dose.No IV access, insert saline lock prior to the beginning of sedation, infusion, injection of imaging exam. Discontinue saline lock post exam. If Pt. has a central line or IVAD, may access for administration according to line specific nursing protocol. Once exam is complete flush line and de-accessaccording to line specific nursing protocol in the CT contrast administration guidelines link. predniSONE (DELTASONE) 10 mg tablet Take 1 tablet by mouth once daily. ezetimibe (ZETIA) 10 mg tablet Take 1 tablet by mouth once daily. iv contrast (will be provided with radiology test) CT Chest W -Inject, intravenously, once for 1 dose.No IV access, insert saline lock prior to the beginning of sedation, infusion, injection of imaging exam. Discontinue saline lock post exam. If Pt. has a central line or IVAD, may access for administration according to line specific nursing protocol. Once exam is complete flush line and de-accessaccording to line specific nursing protocol in the CT contrast administration guidelines link. nitroglycerin sublingual (NITROSTAT) 0.4 mg SL tablet Dissolve 1 tablet under the tongue every 5 minutes as needed. acetaminophen 325 mg cap Take 650 mg by mouth every 8 hours as needed. oxyCODONE IR (ROXICODONE) 5 mg immediate release tablet Take 5 mg by mouth four times a day as needed. guaiFENesin (MUCINEX) 600 mg 12 hr tablet Take 1,200 mg by mouth two times a day. DULoxetine (CYMBALTA) 30 mg capsule Take 30 mg by mouth once daily. ondansetron (ZOFRAN) 4 mg tablet 1 tablet as needed. aspirin, enteric coated (ASPIRIN, ENTERIC COATED) 81 mg EC tablet Take 81 mg by mouth once daily. albuterol HFA (PROAIR HFA) 90 mcg/actuation inhaler Inhale 2 Puffs as instructed every 4 hours as needed for Wheezing/Shortness of Breath. LORazepam (ATIVAN) 1 mg tablet Take 1 tablet by mouth three times a day for 90 days. No current facility-administered medications for this visit. ALLERGIES Allergen Reactions Imdur [Isosorbide M* Hives Black out and dizziness PAST SURGICAL HISTORY Procedure Laterality Date ANGIOGRAM EXTREMITY LUNG BIOPSY Left needle biopsy LUNG SURGERY HX 02/20/20 lt lung nodule removed PAST SURGICAL HISTORY OF TURP PAST SURGICAL HISTORY OF 03/02/1999 triple bypass PAST SURGICAL HISTORY OF Left 09/04/2022 Skin biopsy left upper cheek face PAST SURGICAL HISTORY OF LE vascular FAMILY HISTORY Problem Relation Age of Onset Cancer Mother 49 breast, bone Diabetes Father Heart Father Cancer Sister breast Emphysema Sister Smoker Diabetes Brother Heart Brother other (Other) Brother Parkinsons Diabetes Paternal Grandmother Heart Paternal Grandmother Social History Tobacco Use Smoking status: Former Current packs/day: 0.00 Average packs/day: 2.0 packs/day for 40.0 years (80.0 ttl pk-yrs) Types: Cigarettes Start date: 11/08/1962 Quit date: 05/13/2002 Years since quittin.5 Smokeless tobacco: Never Vaping Use Vaping status: Never Used Substance Use Topics Alcohol use: Not Currently Alcohol/week: 3.0 standard drinks of alcohol Types: 3 Cans of beer per week Comment: light beer Drug use: No REVIEW OF SYSTEMS GENERAL: Negative for Malaise, significant weight loss, fever RESPIRATORY: Negative for cough, wheezing and shortness of breath CARDIOVASCULAR: Negative for chest pain, leg swelling and palpitations GI: Negative for abdominal discomfort, blood in stools or black stools and change in bowel habits : Negative for dysuria, frequency and incontinence MUSCULOSKELETAL: Negative for joint pain or swelling, back pain, and muscle pain. SKIN: Negative for lesions, rash, and itching. HEMATOLOGY/LYMPHOLOGY Negative for prolonged bleeding, bruising easily, and swollen nodes. ENDOCRINE: Negative for cold or heat intolerance, polyuria, polydipsia and goiter. NEURO: negative Physical Exam: Constitutional: Pt is a well developed 83 year old male who is alert, oriented and cooperative Eyes: Following during examination. No redness or drainage. Respiratory: RR normal and nonlabored. Even breathing. No evidence of distress or shortness of breath. Psychology: Patient is engaged during conversation. Normal affect and mood. Does not appear depressed or anxious during encounter. Vascular: Dorsalis pedis and posterior tibial pulses palpable nonpalpable b/l Capillary Fill time < 5 seconds to digits 1-5 b/l Skin temperature warm to cool proximal to distal b/l Hair growth absent to digits Non-Invasive Vascular Laboratory [facility] Lower Extremity Arterial Physiology Study Bilateral/Complete Date of service/time: 08/18/2023 8:49:51 AM Name: MR. OSWALDO CORLEY Date of : 1940 Age: 83 years Gender: M Clinical Indication Peripheral vascular disease. Right external iliac artery stent and iliofemoral endarterectomy. TECHNIQUE -------- An arterial physiological examination was performed, including measurement of blood pressures using continuous wave Doppler and recording of plethysmographic with or without Doppler waveforms at the below-mentioned limb segments. FINDINGS -------- RIGHT SIDE AT REST Right Doppler Waveforms Dorsalis pedis: Monophasic. Post tibial: Monophasic. Right Pressures Brachial: 139 mmHg Ankle dorsalis pedis: 164 mmHg TRAE: 1.15 Partially non-compressible arteries. Ankle posterior tibial: 185 mmHg TRAE: 1.30 Partially non-compressible arteries. Digit: 75 mmHg Right PVR Waveforms Ankle: Moderately dampened. Transmetatarsal: Moderately dampened. Digit: Mildly dampened. LEFT SIDE AT REST Left Doppler Waveforms Dorsalis pedis: Monophasic. Post tibial: Monophasic. Left Pressures Brachial: 142 mmHg Ankle dorsalis pedis: 255 mmHg TRAE: 1.80 Non-compressible arteries. Ankle posterior tibial: 255 mmHg TRAE: 1.80 Non-compressible arteries. Digit: 50 mmHg Left PVR Waveforms Ankle: Moderately dampened. Transmetatarsal: Moderately dampened. Digit: Moderately dampened. IMPRESSION Compared to prior study of 02/03/2023, No significant change. RIGHT SIDE Resting right ankle brachial index: 1.30 Partially non-compressible arteries, TRAE not accurate. Right toe brachial index: 0.53 Non-compressible vessels, results called by PVR tracings. Abnormal toe brachial index at rest is evidence of peripheral artery disease. Right ankle: Moderate disease at rest. LEFT SIDE Resting left ankle brachial index: 1.80 Non-compressible arteries, TRAE not accurate. Left toe brachial index: 0.35 Non-compressible vessels, results called by PVR tracings. Abnormal toe brachial index at rest is evidence of peripheral artery disease. Left ankle: Moderate disease at rest. Technologist: Colleen Da Silva RVT, LUIS FERNANDOMS Ordering physician: TYRELL VIGIL Interpreting physician: VIRA Roblero DO Neurological: absent light touch/epicritic sensation Vibratory sensation absent b/l absent protective sensation + significant neurological deficits Dermatological: Ulceration #1 Location: left medial ankle Measuremetn: 9 mm x 8 mm Base: fibrotic slough No signs of infection. Redness present with dependency. Redness with solves with elevation Scattered eschar noted to left forefoot Musculoskeletal/Orthopaedic: Patient has no pain to palpation of b/l lower extremity Foot type is pronated structurally AJ ROM is decreased with knee extended and flexed 1st MPJ is decreased when loaded and no pain or crepitus are noted with ROM. MTJ, STJ are full and free of pain and crepitus. +5/5 muscle strength dorsiflexion, plantarflexion, inversion, eversion b/l Radiographs: ASSESSMENT: (L98.491) Skin ulcer, limited to breakdown of skin (HCC) (primary encounter diagnosis) (I73.9) Peripheral arterial disease (HCC) PLAN: Discussed new ulceration of left medial ankle. No signs of infection. Redness is present with dependency but completely resolves with elevation. Suspect this is more related to inflammation I am going to have patient apply santyl to the left ankle ulceration and a nonadeherent. Will deferany sharp debridement at this time given suspect pad of left lower extremity. Will share chart withvascular surgery to get their opinion. Will have patient follow-up in 2 weeks or sooner if problems arise. Recommend the use of lotion to remaining aspect of left foot and to right foot as well Juan Carlos Viveros DPM Podiatry [address] [facility] [address] Dept: [phone] Dept * Yina Stringer RN - 11/23/2023 10:26 AM EDT AMB ROOMING INTAKE FLOWSHEET DATA Pain Pain Level: 4 Pain Location: Ankle-Left Description: Aching Duration Amount of Time: 1 Duration Units: Weeks Frequency: Continuous Intervention/Comfort measure: Relaxation, Reposition Patient presents with: Left Ankle - Established Patient, Ulcer Patient presents for new ulcer to left medial ankle that he noticed a week ago. Was seen in urgent care last week and placed on antibiotic (Keflex 500mg QID for 5 days). Has been dressing it at nightwith padding and triple antibiotic cream. Small open area with slight redness to border. States aching pain from ulcer radiates up leg some. JOSE M 11/18/22 documented in this encounterPromedica Memorial Hospital09-23-2024 NoteL[facility]09-23-2024 Telephone encounter Note* Telephone Encounter - Naty Villarreal - 11/23/2023 9:04 AM EDT Spoke with patient's and scheduled as directed. Naty Villarreal [facility]09-[facility]-2024 Miscellaneous Notes* Telephone Encounter - Naty Villarreal - 11/23/2023 9:04 AM EDT Spoke with patient's and scheduled as directed. Naty Villarreal * Telephone Encounter - Radha Pearson LPN - 11/23/2023 8:39 AM EDT Patient's is aware of all information. PSS- please contact patient to schedule as directed below. Radha Pearson LPN * Telephone Encounter - Salazar Meraz DO - 11/22/2023 1:28 PM EDT Can let him know that the CT scan of the chest he recently had done overall shows stable findings. Recommend repeat Cr, CT chest with IV contrast followed by office visit in about 3 to 4 months. Salazar Meraz DO documented in this encounterPromedica Memorial Hospital09-23-2024 Telephone encounter Note * Telephone Encounter - Radha Pearson LPN - 11/23/2023 8:39 AM EDT Patient's is aware of all information. PSS- please contact patient to schedule as directed below. Radha Pearson LPN [facility]09-22-2024 Telephone encounter Note* Telephone Encounter - Salazar Meraz DO - 11/22/2023 1:28 PM EDT Can let him know that the CT scan of the chest he recently had done overall shows stable findings. Recommend repeat Cr, CT chest with IV contrast followed by office visit in about 3 to 4 months. Salazar Meraz DO [facility]09-19-2024 [facility]09-19-2024 History of Present illness Narrative* Andrés Morocho APRN.LEGAL STENOGRAPHER - 11/19/2023 3:59 PM EDT Images from the original note were not included. This note was created using Cake[employer]. Subjective Oswaldo Corley is a 83 year old male. HPI Patient noted a red tender area to the medial aspect of his left ankle over the last several days however it seem much more erythematous this morning. Patient states that when he sleeps he often layshis ankles together but over the last several days has attempted to place a pillow between his feetto help pad the ankle. Patient otherwise denies any injuries denies any nausea vomiting or fever. Review of Systems Constitutional: Negative for fatigue and fever. Skin: Positive for color change and wound. Objective BP 122/76 Pulse 72 Temp 36.2 C (97.1 F) (Right Tympanic) Resp 24 Wt 73.5 kg (162 lb) XaX151% BMI 22.59 kg/m Physical Exam Vitals and nursing note reviewed. Constitutional: General: He is not in acute distress. Appearance: Normal appearance. He is not ill-appearing. HENT: Head: Normocephalic. Mouth/Throat: Mouth: Mucous membranes are moist. Eyes: Conjunctiva/sclera: Conjunctivae normal. Cardiovascular: Rate and Rhythm: Normal rate and regular rhythm. Pulmonary: Comments: Diminished lung sounds throughout with mild respiratory effort on his home oxygen Musculoskeletal: General: Normal range of motion. Cervical back: Normal range of motion. Feet: Skin: General: Skin is warm and dry. Comments: There is an area that is approximately 3 cm in diameter with a central scab over the medial malleolus of left ankle. There is no surrounding erythema. No drainage noted. Neurological: General: No focal deficit present. Mental Status: He is alert. Psychiatric: Mood and Affect: Mood normal. Behavior: Behavior normal. Assessment and Plan ASSESSMENT/PLAN: 1. Cellulitis of left ankle - ICD9: 682.6, ICD10: L03.116 - Begin treatment with Cephalaxin (Keflex) - No lymphangetic streaking, this was defined for patient to watch for and to seek medical care immediately if appears - Follow up for recheck in three days -Patient was strongly encouraged to gently clean the area 2 times a day and apply a fresh layer of antibiotic ointment. He was encouraged to continue to use a pillow or some other form of padding to protect his ankles while sleeping. He was given a course of antibiotics, Keflex and encouraged to follow-up with PCP in several days for close follow-up. He was instructed to monitor for any signs of increased redness, swelling, fevers, any other new or worsening concerns and at that point go to theER for reevaluation. Andrés Morocho APRN.CNP documented in this encounterPromedica Memorial Hospital09-16-2024 Telephone encounter Note * Telephone Encounter - Jamshid Brown APRN.CNP - 11/16/2023 2:10 PM EDT Venessa Brown APRN.CNP [facility]09-16-2024 Miscellaneous Notes* Telephone Encounter - Jamshid Brown APRN.CNP - 11/16/2023 2:10 PM EDT Noted Jamshid Brown APRN.CNP * Telephone Encounter - Zen Lopez LPN - 11/16/2023 2:05 PM EDT Amber from [facility] Home Health calling with OT plan of care, 1 visit this week and next, then 2 visits weekly for 1 week working on safety and function of his left arm. No need for return call. documented in this encounterPromedica Memorial Hospital09-16-2024 Telephone encounter Note * Telephone Encounter - Zen Lopez LPN - 11/16/2023 2:05 PM EDT Amber from [facility] calling with OT plan of care, 1 visit this week and next, then 2 visits weekly for 1 week working on safety and function of his left arm. No need for return call. [facility]-04-[facility] Telephone encounter Note* Telephone Encounter - Jamshid Brown APRN.CNP - 11/04/2023 1:34 PM EDT Noted and agree with AIDA Brown APRN.CNP [facility]09-04-2024 Miscellaneous Notes* Telephone Encounter - Jamshid Brown APRN.CNP - 11/04/2023 1:34 PM EDT Noted and agree with Jamshid Brown APRN.LEGAL STENOGRAPHER * Telephone Encounter - Shara Jackson RN - 11/04/2023 1:26 PM EDT Amber OT @ [facility] calling with plan of care. OT will continue to see patient 1 x/week for three weeks for O2 line management with walker ambulation. If agree, no need to call back. Shara Jackson RN documented in this encounterPromedica Memorial Hospital09-04-2024 Telephone encounter Note * Telephone Encounter - Shara Jackson RN - 11/04/2023 1:26 PM EDT Amber OT @ [facility] calling with plan of care. OT will continue to see patient 1 x/week for three weeks for O2 line management with walker ambulation. If agree, no need to call back. Shara Jackson RN [facility]09-03-2024 Telephone encounter Note* Telephone Encounter - Mei Cummins MD - 11/03/2023 1:42 PM EDT Noted and agree Mei Cummins MD [facility]09-03-20[facility] Miscellaneous Notes* Telephone Encounter - Mei Cummins MD - 11/03/2023 1:42 PM EDT Noted and agree Mei Cummins MD * Telephone Encounter - Marisela Wang LPN - 11/03/2023 11:48 AM EDT NURY: Twila with [facility] PT calls with plan of care: PT will see pt twice a week x 4 weeks for balance, lower extremity strength, endurance, gait training, O2 line management. Marisela Wang LPN documented in this encounterPromedica Memorial Hospital09-03-2024 Telephone encounter Note * Telephone Encounter - Marisela Wang LPN - 11/03/2023 11:48 AM EDT FYI: Twila with [facility] PT calls with plan of care: PT will see pt twice a week x 4 weeks for balance, lower extremity strength, endurance, gait training, O2 line management. Marisela Wang LPN [facility]08-29-20[facility] History of Present illness Narrative* Mei Cummins MD - 10/29/2023 2:20 PM EDT Chief Complaint Patient presents with: Hospital F/U HPI Oswaldo Corley is a 83 year old male who presents here today for a Hospital follow up. Pt here today for a Hospital follow up. Pt d/c from [facility] TCU unit on 10/23/23. Previous TCM completed, but pt cancelled appt and returned back to the ED. Plan 83 year old male with below past medical history hospitalized with acute respiratory failure with hypoxia, sepsis, complicated by bleeding peptic ulcers,acute HFpEF, copd exacerbation, admitted to TCU with debility, here for rehabilitation, strengthening, prior to discharge home with . He has been home for 4 days. Doing better. Still weak, but getting stronger. Uses O2 at 4 liters. Has lasix to use if he gets edema; this works well. Home care with therapy. Past medical history, appointments, medications, allergies reviewed. Previous Medical History PAST MEDICAL HISTORY 11/19/2018: Abdominal aortic aneurysm (AAA) without rupture (HCC) No date: Atypical chest pain No date: CAD (coronary artery disease) Comment: s/p CABG 1999, PCI w/ stents No date: Chronic respiratory failure (HCC) No date: COPD (chronic obstructive pulmonary disease) (HCC) No date: Hyperlipidemia Comment: Hyperlipidemia No date: Hypertension No date: Lung cancer (HCC) No date: Prostate cancer (HCC) Comment: Dx Dec 2014, s/p radiation, on hormonal therapy 04/30/2022: Ulcer of right foot (HCC) Previous Surgical History PAST SURGICAL HISTORY No date: ANGIOGRAM EXTREMITY No date: LUNG BIOPSY; Left Comment: needle biopsy No date: LUNG SURGERY HX Comment: 02/20/20 lt lung nodule removed No date: PAST SURGICAL HISTORY OF Comment: TURP 03/02/1999: PAST SURGICAL HISTORY OF Comment: triple bypass 09/04/2022: PAST SURGICAL HISTORY OF; Left Comment: Skin biopsy left upper cheek face No date: PAST SURGICAL HISTORY OF Comment: LE vascular Family History FAMILY HISTORY Problem Relation Age of Onset Cancer Mother 49 breast, bone Diabetes Father Heart Father Cancer Sister breast Emphysema Sister Smoker Diabetes Brother Heart Brother other (Other) Brother Parkinsons Diabetes Paternal Grandmother Heart Paternal Grandmother Patient Allergies ALLERGIES Allergen Reactions Imdur [Isosorbide M* Hives Black out and dizziness Current Medications Current Outpatient Medications on File Prior to Visit Medication Sig apixaban (ELIQUIS) 5 mg tab(s) Take 1 tablet by mouth two times a day. atorvastatin (LIPITOR) 40 mg tablet Take 1 tablet by mouth once daily. SPIRIVA RESPIMAT 2.5 mcg/actuation inhaler Inhale 2 Puffs as instructed once daily. ADVAIR HFA 230-21 mcg/actuation inhaler Inhale 2 Puffs as instructed two times a day. LORazepam (ATIVAN) 1 mg tablet Take 1 tablet by mouth three times a day for 90 days. iv contrast (will be provided with radiology test) CT Chest W -Inject, intravenously, once for 1 dose.No IV access, insert saline lock prior to the beginning of sedation, infusion, injection of imaging exam. Discontinue saline lock post exam. If Pt. has a central line or IVAD, may access for administration according to line specific nursing protocol. Once exam is complete flush line and de-accessaccording to line specific nursing protocol in the CT contrast administration guidelines link. predniSONE (DELTASONE) 10 mg tablet Take 1 tablet by mouth once daily. ezetimibe (ZETIA) 10 mg tablet Take 1 tablet by mouth once daily. iv contrast (will be provided with radiology test) CT Chest W -Inject, intravenously, once for 1 dose.No IV access, insert saline lock prior to the beginning of sedation, infusion, injection of imaging exam. Discontinue saline lock post exam. If Pt. has a central line or IVAD, may access for administration according to line specific nursing protocol. Once exam is complete flush line and de-accessaccording to line specific nursing protocol in the [place] contrast administration guidelines link. nitroglycerin sublingual (NITROSTAT) 0.4 mg SL tablet Dissolve 1 tablet under the tongue every 5 minutes as needed. acetaminophen 325 mg cap Take 650 mg by mouth every 8 hours as needed. oxyCODONE IR (ROXICODONE) 5 mg immediate release tablet Take 5 mg by mouth four times a day as needed. guaiFENesin (MUCINEX) 600 mg 12 hr tablet Take 1,200 mg by mouth two times a day. DULoxetine (CYMBALTA) 30 mg capsule Take 30 mg by mouth once daily. ondansetron (ZOFRAN) 4 mg tablet 1 tablet as needed. aspirin, enteric coated (ASPIRIN, ENTERIC COATED) 81 mg EC tablet Take 81 mg by mouth once daily. albuterol HFA (PROAIR HFA) 90 mcg/actuation inhaler Inhale 2 Puffs as instructed every 4 hours as needed for Wheezing/Shortness of Breath. No current facility-administered medications on file prior to visit. Social History Social History Tobacco Use Smoking status: Former Current packs/day: 0.00 Average packs/day: 2.0 packs/day for 40.0 years (80.0 ttl pk-yrs) Types: Cigarettes Start date: 11/08/1962 Quit date: 05/13/2002 Years since quittin.4 Smokeless tobacco: Never Vaping Use Vaping status: Never Used Substance Use Topics Alcohol use: Not Currently Alcohol/week: 3.0 standard drinks of alcohol Types: 3 Cans of beer per week Comment: light beer Drug use: No EXAM: BP 117/70 Pulse 84 Resp 20 Wt 73.5 kg (162 lb) SpO2 97% BMI 22.59 kg/m General Appearance: Well appearing, alert, in no acute distress, well-hydrated, well nourished.. Lungs: decreased breath sounds. Heart: RRR without murmur, gallop, or rubs. No ectopy. Extremities: mild edema left, none right. Health Maintenance List Urine Albumin:Creatinine Ratio Never done Dilated Retinal Exam Never done Diabetic Foot Exam Never done DTaP,Tdap,Td Vaccine(1 - Tdap) Never done Shingrix Vaccine(1 of 2) Never done HbA1C due on 12/24/2022 Covid-19 Vaccine(2022- season) due on 04/21/2023 Influenza Vaccine(1) due on 11/01/2023 LDL Cholesterol due on 04/02/2024 Spirometry Completed Advance Directive Discussion Completed RSV Vaccine Completed Pneumococcal Vaccine: 65+ Completed HPV Vaccine Aged Out Colorectal Cancer Screening Discontinued Data reviewed Hospital reports from [facility] ASSESSMENT/PLAN: 1. Chronic obstructive pulmonary disease, unspecified COPD type (HCC) - ICD9: 496, ICD10: J44.9 (primary diagnosis) Continue current medications. Follow with Pulm 2. Essential hypertension - ICD9: 401.9, ICD10: I10 - Controlled - Continue current medications - Recommend home blood pressure monitoring, to bring results to next visit - Encouraged sodium restriction, DASH or Mediterranean diet - Recommend regular aerobic exercise 3. Anxiety - ICD9: 300.00, ICD10: F41.9 Continue current medications. 4. Coronary artery disease involving [place] coronary artery of [place] heart without angina pectoris- ICD9: 414.01, ICD10: I25.10 5. Squamous carcinoma of lung, left (HCC) - ICD9: 162.9, ICD10: C34.92 6. Acute and chronic respiratory failure with hypoxia (HCC) - ICD9: 518.84, 799.02, ICD10: J96.21 Stable on meds; use lasix prn 7. Moderate recurrent major depression (HCC) - ICD9: 296.32, ICD10: F33.1 Stable 8. Hospital discharge follow-up - ICD9: V67.59, ICD10: Z09 Follow up in 1-2 months I agree with the Chief Complaint, ROS, and Past Histories independently gathered by the clinical product support technician and the remaining scribed note accurately describes my personal service to the patient. Medical Decision Making: Problems: Moderate: 2+ stable chronic illnesses Risk: Moderate: Drug management Medical Decision Making Level: 4 - Moderate Mei Cummins MD The documentation for this note was completed by Malu Tavares MA acting as scribe for Mei Cummins MD. October 29, 2023 1:59 PM. Malu Tavares MA documented in this encounterPromedica [facility]08-29-2024 [facility] Tele[facility] encounter Note* Telephone Encounter - Mei Cummins MD - 10/29/2023 11:57 AM EDT Noted Mei Cummins MD [facility]08-29-2024 Miscellaneous Notes* Telephone Encounter - Mei Cummins MD - 10/29/2023 11:57 AM EDT Noted Mei Cummins MD * Telephone Encounter - Naty Ley RN - 10/28/2023 3:58 PM EDT Amber EMANUEL calling from [facility] to report plan of care for patient and Occupational therapy will visit patient 1 time a week for 2 weeks. Occupational therapy will work with patient on equipment training, home exercise program, safety with O2 line while using of walker. No call back needed unless there are questions Naty Ley RN documented in this encounterPromedica Memorial Hospital08-29-2024 Telephone encounter Note * Telephone Encounter - Tyesha Lacey RN - 10/29/2023 10:14 AM EDT Call to Twila and verbal order given. Patient has appointment this afternoon so has requested to be seen beginning of next week. Tyesha Lacey RN [facility]08-29-2024 Miscellaneous Notes* Telephone Encounter - Tyesha Lacey RN - 10/29/2023 10:14 AM EDT Call to Twila and verbal order given. Patient has appointment this afternoon so has requested to be seen beginning of next week. Tyesha Lacey RN * Telephone Encounter - Mei Cummins MD - 10/29/2023 10:10 AM EDT OK for a verbal order to see patient today for HH PT eval Mei Cummins MD * Telephone Encounter - Tyesha Lacey RN - 10/29/2023 8:28 AM EDT Twila PT with [facility] calls to request a verbal order to see patient today for HH PT eval. Spouse declined visit yesterday and today is outside of their window for current PT orders. Please call Twila back at [phone] with providers response. Tyesha Lacey RN documented in this encounterPromedica Memorial Hospital08-29-2024 Telephone encounter Note * Telephone Encounter - Mei Cummins MD - 10/29/2023 10:10 AM EDT OK for a verbal order to see patient today for HH PT eval Mei Cummins MD [facility]08-29-2024 Telephone encounter Note* Telephone Encounter - Tyesha Lacey RN - 10/29/2023 8:28 AM EDT Twila PT with [facility] calls to request a verbal order to see patient today for HH PT eval. Spouse declined visit yesterday and today is outside of their window for current PT orders. Please call Twila back at [phone] with providers response. Tyesha Lacey RN [facility]08-28-2024 Telephone encounter Note* Telephone Encounter - Naty Ley RN - 10/28/2023 3:58 PM EDT Amber EMANUEL calling from [facility] to report plan of care for patient and Occupational therapy will visit patient 1 time a week for 2 weeks. Occupational therapy will work with patient on equipment training, home exercise program, safety with O2 line while using of walker. No call back needed unless there are questions Naty Ley RN [facility]08-28-2024 Telephone encounter Note* Telephone Encounter - Brigette Campos RN - 10/28/2023 8:38 AM EDT Patient called and notified of the below instructions. Refill request sent in another encounter. Brigette Campos RN [facility]08-28-2024 Telephone encounter Note* Telephone Encounter - Brigette Campos RN - 10/28/2023 8:38 AM EDT Images from the original note were not included. Bela Manzano MD You15 hours ago (5:34 PM) Metoprolol 3 times per day should be sufficient. I doubt there is a spot to put him in before Oct Lucho [facility]08-28-2024 Miscellaneous Notes* Telephone Encounter - Brigette Campos RN - 10/28/2023 8:38 AM EDT Patient called and notified of the below instructions. Refill request sent in another encounter. Brigette Campos RN * Telephone Encounter - Brigette Campos RN - 10/28/2023 8:38 AM EDT Images from the original note were not included. Bela Manzano MD You15 hours ago (5:34 PM) Metoprolol 3 times per day should be sufficient. I doubt there is a spot to put him in before Aria Yepez * Telephone Encounter - Brigette Campos RN - 10/27/2023 2:17 PM EDT Patient's , Serenity, stopped into the office. Patient has had 2 recent hospitalizations at [facility] for anemia related to a GI bleed, acute respiratory failure, sepsis, and CHF. Patient was discharged on 10/25/23 from [facility] TCU. While in the hospital the patient was place on Metoprolol 25mg Q6h to help control his HR. In the ED the patient's HR was 124. The patient was discharged on this same dose but is currently only taking it three times a day. Vitals today 122/70 HR 90. Patient currently has [facility] and per their recommendation Serenity is asking if the patient needs to be seen sooner then 12/21/23. She is also asking about continuing to take the metoprolol. They were only given a 30 day supply. This nurse instructed her to continue to monitor the patient's HR and BP. Discharge summaries for most recent ED, Inpatient, and TCU stays at [facility] sent to be scanned into thechart. Please review and advise. Brigette Campos RN * Telephone Encounter - Brigette Campos RN - 10/27/2023 12:23 PM EDT Called and asking the patient's to call back and give us more information so that we can schedule and assist accordingly. What symptoms is the patient having that Home Health feels he needs to be seen sooner? Brigette Campos RN * Telephone Encounter - Mirna Florence - 10/27/2023 11:52 AM EDT FYI : called In stating Home care wanted Oswaldo to be seen sooner than December 20. I advised that I did not have anything sooner and I would send a message to the office. was frustrated and hung up and stated she would walk in and schedule herself. documented in this encounterPromedica Memorial Hospital08-28-2024 Telephone encounter Note * Telephone Encounter - Brigette Campos RN - 10/28/2023 8:35 AM EDT Patient phones requesting refills as follows: Requested Prescriptions Pending Prescriptions Disp Refills metoprolol tartrate, short acting, (LOPRESSOR) 25 mg tablet 270 tablet 0 Sig: Take 1 tablet by mouth three times a day. Please review and advise. Brigette Campos RN [facility]08-28-2024 Miscellaneous Notes* Telephone Encounter - Brigette Campos RN - 10/28/2023 8:35 AM EDT Patient phones requesting refills as follows: Requested Prescriptions Pending Prescriptions Disp Refills metoprolol tartrate, short acting, (LOPRESSOR) 25 mg tablet 270 tablet 0 Sig: Take 1 tablet by mouth three times a day. Please review and advise. Brigette Campos RN documented in this encounterPromedica Memorial Hospital08-27-2024 Telephone encounter Note * Telephone Encounter - Brigette Campos RN - 10/27/2023 2:17 PM EDT Patient's , Serenity, stopped into the office. Patient has had 2 recent hospitalizations at [facility] for anemia related to a GI bleed, acute respiratory failure, sepsis, and CHF. Patient was discharged on 10/25/23 from [facility] TCU. While in the hospital the patient was place on Metoprolol 25mg Q6h to help control his HR. In the ED the patient's HR was 124. The patient was discharged on this same dose but is currently only taking it three times a day. Vitals today 122/70 HR 90. Patient currently has [facility] and per their recommendation Serenity is asking if the patient needs to be seen sooner then 12/21/23. She is also asking about continuing to take the metoprolol. They were only given a 30 day supply. This nurse instructed her to continue to monitor the patient's HR and BP. Discharge summaries for most recent ED, Inpatient, and TCU stays at [facility] sent to be scanned into thechart. Please review and advise. Brigette Campos RN [facility]08-27-2024 Telephone encounter Note* Telephone Encounter - Brigette Campos RN - 10/27/2023 12:23 PM EDT Called and asking the patient's to call back and give us more information so that we can schedule and assist accordingly. What symptoms is the patient having that Home Health feels he needs to be seen sooner? Brigette Campos RN [facility]08-27-2024 Telephone encounter Note* Telephone Encounter - Mirna Florence - 10/27/2023 11:52 AM EDT FYI : called In stating Home care wanted Oswaldo to be seen sooner than December 20. I advised that I did not have anything sooner and I would send a message to the office. was frustrated and hung up and stated she would walk in and schedule herself. [facility]08-[facility] Telephone encounter Note* Telephone Encounter - Tyesha Lacey RN - 10/27/2023 9:39 AM EDT Call placed to Naty and notified of ok for nitro. Naty verbalizes understanding. Tyesha Lacey RN [facility]08-27-2024 Miscellaneous Notes* Telephone Encounter - Tyesha Lacey RN - 10/27/2023 9:39 AM EDT Call placed to Naty and notified of ok for nitro. Naty verbalizes understanding. Tyesha Lacey RN * Telephone Encounter - Mei Cummins MD - 10/27/2023 9:12 AM EDT OK to use prn nitro Mei Cummins MD * Telephone Encounter - Tyesha Lacey RN - 10/27/2023 8:29 AM EDT Naty with [facility] calls to ask if it is ok for patient to continue use of prn nitro with drug interaction to isosorbide since patient has known drug allergy. Please return call to Naty at [phone]. Tyesha Lacey RN Also reviewed lasix orders and prescription sent to [facility]. documented in this encounterPromedica Memorial Hospital08-27-2024 Telephone encounter Note * Telephone Encounter - Mei Cummins MD - 10/27/2023 9:12 AM EDT OK to use prn nitro Mei Cummins MD [facility]08-27-2024 Telephone encounter Note* Telephone Encounter - Tyesha Lacey RN - 10/27/2023 8:29 AM EDT Naty with [facility] calls to ask if it is ok for patient to continue use of prn nitro with drug interaction to isosorbide since patient has known drug allergy. Please return call to Naty at [phone]. Tyesha Lacey RN Also reviewed lasix orders and prescription sent to [facility]. [facility]08-26-2024 Telephone encounter Note* Telephone Encounter - Jocelin Hughes LPN - 10/26/2023 5:57 PM EDT Left detsailed message of such on [employer]. [facility]08-26-2024 Miscellaneous Notes* Telephone Encounter - Jocelin Hughes LPN - 10/26/2023 5:57 PM EDT Left detsailed message of such on [employer]. * Telephone Encounter - Mei Cummins MD - 10/26/2023 5:23 PM EDT OK for Mei Cummins MD * Telephone Encounter - Naty Ley RN - 10/26/2023 1:48 PM EDT Hailee SW from [facility] calls and states that she is going out to see patient on Thursday. Hailee asking if this is ok? Hailee states the way orders were put in this would be a delay in care order. Please review and advise, Naty Ley RN documented in this encounterPromedica Memorial Hospital08-26-2024 Telephone encounter Note * Telephone Encounter - Mei Cummins MD - 10/26/2023 5:23 PM EDT OK for Weds Mei Cummins MD [facility]08-26-2024 Telephone encounter Note* Telephone Encounter - Jocelin Hughes LPN - 10/26/2023 5:12 PM EDT Left detailed message on [employer]. [facility]08-26-2024 Miscellaneous Notes* Telephone Encounter - Jocelin Hughes LPN - 10/26/2023 5:12 PM EDT Left detailed message on [employer]. * Telephone Encounter - Mei Cummins MD - 10/26/2023 5:07 PM EDT OK for lasix as ordered Mei Cummins MD * Telephone Encounter - Vickie Carrillo MA - 10/26/2023 4:08 PM EDT Call to Naty and notified her of message below from Provider. Naty is asking about Lasix 20 mg once daily as this was given to him in TCU due to fluid overload, but pt was not d/c home with this medication. Pt seen today at home and has +3 pitting edema and is having difficulty breathing. Naty is worried about pt going without a diuretic until when being seen in the office. Wondering if PCP can prescribe short term Rx currently until seen. Naty asking if she should reach out to Palliative Care to get order, since they are treating. Cardio was not prescribing. Notified Naty that PCP would more than likely Rx this until being seen. Notified her that this MA would notify PCP and Jocelin would call her back tonight with an update. Vickie Carrillo MA * Telephone Encounter - Mei Cummins MD - 10/26/2023 3:18 PM EDT OK to resume lorazepam Erythromycin ointment ordered Agree with nursing plan of care Mei Cummins MD * Telephone Encounter - Marisela Wang LPN - 10/26/2023 2:37 PM EDT Neelam with [facility] Nursing calls to report pt was discharged from [facility]. Neelam is asking the followin) Dr. Hunt dc'd pt's lorazepam 1 mg tid while in the hospital. Neelam reports the pt reports he cannot stop taking lorazepam. Neelam is asking if pt can resume lorazepam 1 mg. Pt has some left in the home. 2) Pt developed pinkeye while in TCU. Treatment while in hospital was erythromycin 0.5% ointment. Neelam reports a rx was not sent home for this. Neelam reports pt's left eye is still red and hassome clear/yellow drainage. Neelam is asking if pcp would order ointment for pt's eye. POC for Nursing: Will see pt twice a week x 4 weeks, then once a week x 1 week. Call Neelam with provider's message. Marisela Wang LPN documented in this encounterPromedica Memorial Hospital08-26-2024 Telephone encounter Note * Telephone Encounter - Mei Cummins MD - 10/26/2023 5:07 PM EDT OK for lasix as ordered Mei Cummins MD [facility]08-26-2024 Telephone encounter Note* Telephone Encounter - Vickie Carrillo MA - 10/26/2023 4:08 PM EDT Call to Naty and notified her of message below from Provider. Naty is asking about Lasix 20 mg once daily as this was given to him in TCU due to fluid overload, but pt was not d/c home with this medication. Pt seen today at home and has +3 pitting edema and is having difficulty breathing. Naty is worried about pt going without a diuretic until when being seen in the office. Wondering if PCP can prescribe short term Rx currently until seen. Naty asking if she should reach out to Palliative Care to get order, since they are treating. Cardio was not prescribing. Notified Naty that PCP would more than likely Rx this until being seen. Notified her that this MA would notify PCP and Jocelin would call her back tonight with an update. Vickie Carrillo MA [facility]08-26-2024 Telephone encounter Note* Telephone Encounter - Mei Cummins MD - 10/26/2023 3:18 PM EDT OK to resume lorazepam Erythromycin ointment ordered Agree with nursing plan of care Mei Cummins MD [facility]08-26-20[facility] Telephone encounter Note* Telephone Encounter - Justus Henry RN - 10/26/2023 2:57 PM EDT Naty- [facility]- transferred to this nurse looking for riprap placing supervisor, Dr. Manzano. Naty reports patient was discharged from [facility] yesterday, and his discharge medication list, includes lasix 20 mg prn. Asking if patient should be taking this, if yes, needs Rx sent to [facility]. Unable to see [facility] notes at this time, in patient's chart. Spoke with cardiology nurse, who reports Dr. Manzano does not have patient on lasix. Notified Naty of this and advised her to check [facility] records to find out who prescribed lasix for patient. Naty agreeable. [facility]08-26-2024 Miscellaneous Notes* Telephone Encounter - Justus Henry RN - 10/26/2023 2:57 PM EDT Naty- [facility]- transferred to this nurse looking for riprap placing supervisor, Dr. Manzano. Naty reports patient was discharged from [facility] yesterday, and his discharge medication list, includes lasix 20 mg prn. Asking if patient should be taking this, if yes, needs Rx sent to [facility]. Unable to see [facility] notes at this time, in patient's chart. Spoke with cardiology nurse, who reports Dr. Manzano does not have patient on lasix. Notified Naty of this and advised her to check [facility] records to find out who prescribed lasix for patient. Naty agreeable. documented in this encounterPromedica Memorial Hospital08-26-2024 Telephone encounter Note * Telephone Encounter - Marisela Wang LPN - 10/26/2023 2:37 PM EDT Neelam with [facility] Nursing calls to report pt was discharged from [facility]. Neelam is asking the followin) Dr. Hunt dc'd pt's lorazepam 1 mg tid while in the hospital. Neelam reports the pt reports he cannot stop taking lorazepam. Neelam is asking if pt can resume lorazepam 1 mg. Pt has some left in the home. 2) Pt developed pinkeye while in TCU. Treatment while in hospital was erythromycin 0.5% ointment. Neelam reports a rx was not sent home for this. Neelam reports pt's left eye is still red and hassome clear/yellow drainage. Neelam is asking if pcp would order ointment for pt's eye. POC for Nursing: Will see pt twice a week x 4 weeks, then once a week x 1 week. Call Neelam with provider's message. Marisela Wang LPN [facility]08-26-[facility] Telephone encounter Note* Telephone Encounter - Naty Ley RN - 10/26/2023 1:48 PM EDT Hailee MEJIA from [facility] calls and states that she is going out to see patient on Thursday. Hailee asking if this is ok? Hailee states the way orders were put in this would be a delay in care order. Please review and advise, Naty Ley RN [facility]08-23-2024 Telephone encounter Note* Telephone Encounter - Zen Lopez LPN - 10/23/2023 4:33 PM EDT Phoned left detailed message on [employer] with notes below from Dr Cummins. [facility]08-23-2024 Miscellaneous Notes* Telephone Encounter - Zen Lopez LPN - 10/23/2023 4:33 PM EDT Phoned left detailed message on [employer] with notes below from Dr Cummins. * Telephone Encounter - Mei Cummins MD - 10/23/2023 4:14 PM EDT OK for order for Home Health Nursing, PT, OT and Social Work as requested Mei Cummins MD * Telephone Encounter - Coco Arriaga RN - 10/23/2023 3:09 PM EDT Twila with [facility] calling and states patient is to be discharged from [facility] tomorrow, 10/24/23. Requesting order for Home Health Nursing, PT, OT and Social Work for patient. Please call Twila with approval of orders at [phone]. Thank you. documented in this encounterPromedica Memorial Hospital08-23-2024 Telephone encounter Note * Telephone Encounter - Mei Cummins MD - 10/23/2023 4:14 PM EDT OK for order for Home Health Nursing, PT, OT and Social Work as requested Mei Cummins MD [facility]08-23-2024 Telephone encounter Note* Telephone Encounter - Coco Arriaga RN - 10/23/2023 3:09 PM EDT Twila with [facility] calling and states patient is to be discharged from [facility] tomorrow, 10/24/23. Requesting order for Home Health Nursing, PT, OT and Social Work for patient. Please call Twila with approval of orders at [phone]. Thank you. [facility]08-23-2024 [facility]08-17-2024 [facility]08-17-2024 [facility]08-06-2024 Telephone encounter Note* Telephone Encounter - Mei Cummins MD - 10/06/2023 3:13 PM EDT He may contact [facility] if he feels he needs to. Mei Cummins MD [facility]08-06-2024 Miscellaneous Notes* Telephone Encounter - Mei Cummins MD - 10/06/2023 3:13 PM EDT He may contact Pulm if he feels he needs to. Mei Cummins MD * Telephone Encounter - Vickie Carrillo MA - 10/05/2023 2:33 PM EDT Should pt contact Pulmonary as well to make them aware since he's having such a difficult time? Vickie Carrillo MA * Telephone Encounter - Mei Cummins MD - 10/05/2023 2:18 PM EDT Noted; he may monitor symptoms at home for now; let me know if things change Mei Cummins MD * Telephone Encounter - Naty Ley RN - 10/05/2023 10:34 AM EDT Patient's calls and states that patient is having a hard time catching his breath with activity and will not be able to come into hospital follow up appointment today. Patient currently is on 4 L of O2. At rest patient is fine but once he tries to move he is really winded. Patient's current O2is 95 % when resting on 4 L of O2. O2 level was at 93 % right before. Advised the importance of appointment, voices understanding but states that patient cannot come in due to being short of breath. Advised that if patient is that short of breath then he needs to go to ER to be evaluated again. states that patient will not want to go back and that when resting patient is fine. Naty Ley RN documented in this encounterProm[facility]24 [facility] Telephone encounter Note* Telephone Encounter - Aminata Boston - 10/05/2023 4:16 PM EDT Called patient and schedule and directed [facility]08-05[facility]2024 Miscellaneous Notes* Telephone Encounter - Aminata Boston - 10/05/2023 4:16 PM EDT Called patient and schedule and directed * Telephone Encounter - Faustina Rosen RN - 10/01/2023 11:46 AM EDT Serenity called regarding Oswaldo, verified name and date of . Serenity wanted to let Yuliet in Dr. Calvillo's office (pulmonary) know that the reason Serenity did not call on September 27, with an update on Oswaldo was because he was in the ER at [facility] and was just dischargedyesterday. He tested positive for COVID and she is also positive. All of the hospital information should have been forwarded to Dr. Cummins. Serenity also requested that I let Dr. Meraz's office know Oswaldo's status. Faustina Rosen RN October 01, 2023 11:49 AM documented in this encounterPromedica [facility] Hospital08-05-2024 Telephone encounter Note * Telephone Encounter - Vickie Carrillo MA - 10/05/2023 2:33 PM EDT Should pt contact Pulmonary as well to make them aware since he's having such a difficult time? Vickie Carrillo MA [facility]08-05-2024 Telephone encounter Note* Telephone Encounter - Mei Cummins MD - 10/05/2023 2:18 PM EDT Noted; he may monitor symptoms at home for now; let me know if things change Mei Cummins MD [facility]08-05-2024 Telephone encounter Note* Telephone Encounter - Naty Ley RN - 10/05/2023 10:34 AM EDT Patient's calls and states that patient is having a hard time catching his breath with activity and will not be able to come into hospital follow up appointment today. Patient currently is on 4 L of O2. At rest patient is fine but once he tries to move he is really winded. Patient's current O2is 95 % when resting on 4 L of O2. O2 level was at 93 % right before. Advised the importance of appointment, voices understanding but states that patient cannot come in due to being short of breath. Advised that if patient is that short of breath then he needs to go to ER to be evaluated again. states that patient will not want to go back and that when resting patient is fine. Naty Ley RN [facility]08-01-2024 Telephone encounter Note* Telephone Encounter - Felicity Rojas MA - 10/01/2023 12:06 PM EDT Not a problem. Lab orders do not until 05/31/2024. Felicity Rojas MA [facility]08-01-2024 Miscellaneous Notes* Telephone Encounter - Felicity Rojas MA - 10/01/2023 12:06 PM EDT Not a problem. Lab orders do not until 05/31/2024. Felicity Rojas MA * Telephone Encounter - Yoli Calvillo LPN - 10/01/2023 11:39 AM EDT Patient's spouse, patients name/ date of verified, called to advise cardiology staff that patient has been in the hospital and currently has covid. Patient has labs due to be done by today 10/01/23 and patient will not be able to get labs done today. Spouse states as soon as he feels better they can get labs done. Please review and advise. Yoli Calvillo LPN October 01, 2023 11:41 AM documented in this encounterPromedica Memorial Hospital08-01-2024 NoteHNO ID: [id number] Author: MEI CUMMINS MD Service: ? Author Type: Physician Type: Progress Notes Filed: 10/01/2023 11:53 Note Text: Noted Mei Cummins [facility]08-01-2024 History of Present illness Narrative* Mei Cummins MD - 10/01/2023 11:53 AM EDT Noted Mei Cummins MD * Vickie Carrillo MA - 10/01/2023 11:13 AM EDT Images from the original note were not included. TRANSITION CARE MANAGEMENT (TCM) INITIAL CONTACT [employer] Provider Action/FYI: Spoke with pt and spouse. At this time they both have Covid and overall feel fine at this time. He is only feeling winded at this time but denies feeling anything else. states she feels fine other than having a headache. Will keep appt as scheduled. Initial contact with patient post discharge, spoke to patient and spouse. Patient identified by name and . TRANSITION CARE MANAGEMENT INITIAL OUTREACH DOCUMENTATION: No data to display SUMMARY: -Pt discharged from [facility] on 09/30/23. -Admitted for: Date of Admission: 09/28/23 Date of Discharge: 09/30/23 Discharge Diagnosis (1) Fecal occult blood test positive: Status: Acute Code(s): R19.5 - Other fecal abnormalities (2) COVID: Status: Acute Code(s): U07.1 - COVID-19 (3) Pneumonia: Status: Acute Code(s): J18.9 - Pneumonia, unspecified organism Plan #Acute hypoxia due to COVID and community acquired pneumonia Patient remains on 4 L of oxygen. COVID test was positive and strep group B is also positive. Sputum culture. Has known squamous cell carcinoma of the left lower lobe. Chest x-ray on admission showed pleural parenchymal changes at left lung base which had progressed and pleural calcified plaques in the righthemithorax with left lower lobe nodule. Ceftriaxone and azithromycin. Also on IV Solu-Medrol. Breathing treatments with bronchodilators. Will switch Solu-Medrol to Decadron on account of positive COVID test #COVID-19 pneumonia: As above if shortness of breath persist will consider adding on dysuria. #Community-acquired pneumonia due to Streptococcus pneumonia: As above #Hypokalemia: Potassium is 3.3. Replace and trend. #GI bleed Complain of dark stools and stool for occult blood was positive. Hemoglobin is 10.6 today. Eliquis on hold. GI on board and for EGD and colonoscopy today. On IV pantoprazole. Hospital Course: Patient is an 83-year-old male with a past medical history of DVT and PE, on Eliquis as well as left-sided squamous cell lung cancer and CAD as well as COPD and chronic respiratory failure due to COPD on 3 to 4 L of oxygen was admitted through the ED on 09/28/2023 with a complaint of increased shortness of breath and dark tarry stool for 3 days prior to admission. He was also noted to be hypoxic with a saturation dropping to 70% on 3 L of oxygen which recovered slowly when he sat back up. Chest x-ray showed worsening pleural parenchymal changes of the left lung base and a nodule in the lateralaspect of the left lower lobe. Respiratory panel done was positive for COVID. He was therefore admitted to be managed for hypoxia due to COVID and probable GI bleed. He said his also has similarsymptoms she subsequently also tested positive for COVID. Hemoglobin was 10.9. He was admitted and started on remdesivir and IV Solu-Medrol for the COVID. Gastroenterology was consulted and his Eliquis was held. CT of the abdomen and pelvis done showed no evidence of obstruction but showed metastatic deposits and a chronic left cavitary lesion in the lung. Sputum culture came back positive for Streptococcus and Staphylococcus aureus. He had been on IV ceftriaxone and azithromycin. He had EGD which showed esophageal plaques consistent with candidiasis which were biopsied in 2 bleeding angiodysplastic lesions in the duodenum which were treated with heater probe. Colonoscopy done showed multiple bleeding colonic angiodysplastic lesions which was treated with argon plasma coagulation. He alsohad internal hemorrhoids and diverticulosis in the rectosigmoid, sigmoid and descending colon. He also had 3 polyps in the cecum and sigmoid colon which were removed. Recommendation was for patient to repeat his colonoscopy in 1 year. Patient remained stable and was discharged home on 09/30/2023. Heis to follow-up with his primary care doctor within 1 to 2 weeks and follow-up with gastroenterology. He was discharged with a prescription for p.o amoxicillin clavulanic acid 1 tablet twice daily and p.o doxycycline 100 mg twice daily for 5 days to cover the strep and staph pneumonia. Patient seen and examined prior to discharge. He was on his baseline 4 L of oxygen. He had no active complaints and review of systems otherwise negative. Labs and vitals reviewed. Home medication reviewed and reconciled. Of note he was also discharged with p.o. prednisone 40 mg daily for 5 days. Hewas also discharged on p.o. fluconazole for 2-week course for the esophageal thrush Do you have a hospital follow up appointment with your PCP? Appointment on 10/05/[address] Cummins. MEDICATIONS: Many patients have questions or concerns about their medications once they are home. Were you prescribed any new medications? If yes, what are those medications? Augmentin 875-125 mg 1 tab po bid #10, Fluconazole 100 mg once daily #14, Prednisone 20 mg 2 tabs daily (40 mg) daily for 5 days. Were you told to hold any medications? No Were any of your medications discontinued? No Do you have any questions about getting or taking your medications? No Your discharge instructions/After visit Summary (AVS) are important in guiding you through the recovery process. Is there anything I might help you understand? No Do you have all the necessary equipment and supplies at home? Yes Medical records from recent hospitalization: [facility]. Vickie Carrillo MA documented in this encounterPromedica [facility] Hospital08-01-2024 Telephone encounter Note * Telephone Encounter - Faustina Rosen RN - 10/01/2023 11:46 AM EDT Serenity called regarding Oswaldo, verified name and date of . Serenity wanted to let Yuliet in Dr. Calvillo's office (pulmonary) know that the reason Serenity did not call on September 27, with an update on Oswaldo was because he was in the ER at [facility] and was just dischargedyesterday. He tested positive for COVID and she is also positive. All of the hospital information should have been forwarded to Dr. Cummins. Serenity also requested that I let Dr. Meraz's office know Oswaldo's status. Faustina Rosen RN October 01, 2023 11:49 AM [facility]08-01-2024 Telephone encounter Note* Telephone Encounter - Yoli Calvillo LPN - 10/01/2023 11:39 AM EDT Patient's spouse, patients name/ date of verified, called to advise cardiology staff that patient has been in the hospital and currently has covid. Patient has labs due to be done by today 10/01/23 and patient will not be able to get labs done today. Spouse states as soon as he feels better they can get labs done. Please review and advise. Yoli Calvillo LPN October 01, 2023 11:41 AM [facility]08[facility]01-[facility]07-26-2024 Telephone encounter Note* Telephone Encounter - Laura Cabral RN - 09/25/2023 3:38 PM EDT Christina notified of the below and states understanding. Emphasized the need for ER or Urgent care if worsens. [facility]07-26-2024 Miscellaneous Notes* Telephone Encounter - Laura Cabral RN - 09/25/2023 3:38 PM EDT Christina notified of the below and states understanding. Emphasized the need for ER or Urgent care if worsens. * Telephone Encounter - Salazar Meraz DO - 09/25/2023 3:24 PM EDT I sent Rx for doxycycline. If his symptoms worsen however he goes to the ER or urgent care. Salazar Meraz DO * Telephone Encounter - Laura Cabral RN - 09/25/2023 3:08 PM EDT Christina stopped in office about Bill having a cough.She had just come down from Dr Pascual Calvillo's office.Dr Calvillo out of office.See note Yuliet put in. She would like you to call in antibiotic for Bill he has a has a cough that in non productive but he has crackles you can hear He does not have a fever that she knows of. Yuliet suggested he go tourgent care but Christina states he will not go he'll just wait til Thursday when Dr Calvillo is in. Christina is very stressed as he son-in-law is at [facility] with heart failure- needs a transplant So she just doesn't want Bill to get pneumonia. Please call house number rather than cell. documented in this encounterPromedica [facility] Hospital07-26-2024 Telephone encounter Note * Telephone Encounter - Salazar Meraz DO - 09/25/2023 3:24 PM EDT I sent Rx for doxycycline. If his symptoms worsen however he goes to the ER or urgent care. Salazar Meraz DO [facility]07-26-2024 Telephone encounter Note* Telephone Encounter - Laura Cabral RN - 09/25/2023 3:08 PM EDT Christina stopped in office about Bill having a cough.She had just come down from Dr Pascual Calvillo's office.Dr Calvillo out of office.See note Yuliet put in. She would like you to call in antibiotic for Bill he has a has a cough that in non productive but he has crackles you can hear He does not have a fever that she knows of. Yuliet suggested he go tourgent care but Christina states he will not go he'll just wait til Thursday when Dr Calvillo is in. Christina is very stressed as he son-in-law is at [facility] with heart failure- needs a transplant So she just doesn't want Bill to get pneumonia. Please call house number rather than cell. [facility]07-26-[facility] Telephone encounter Note* Telephone Encounter - Tyrell Lamar LPN - 09/25/2023 2:59 PM EDT Spouse presented to office. Patient was seen on 09/15 for follow up and has since developed a worsening wet cough, non productive of mucus but with significant chest congestion. He took one dose of Trelegy and returned to Advair BID and Spiriva. He is using Mucinex BID and hasbeen compliant with vest therapy. Due to the significance of his chest congestion, I advised UC to the spouse. He has been compliant with ICC/LABA/Anticholingeric therapy and with mucus clearing techniques. Of note- KATHLEEN documentationfrom 09/15 visit mentioned edema of the lower extremities. The does not feel this is worse. I do not see a recent BNP on file. Reiterated UC and is agreeable to this plan. Tyrell Lamar LPN [facility]07-26-2024 Miscellaneous Notes* Telephone Encounter - Tyrell Lamar LPN - 09/25/2023 2:59 PM EDT Spouse presented to office. Patient was seen on 09/15 for follow up and has since developed a worsening wet cough, non productive of mucus but with significant chest congestion. He took one dose of Trelegy and returned to Advair BID and Spiriva. He is using Mucinex BID and hasbeen compliant with vest therapy. Due to the significance of his chest congestion, I advised UC to the spouse. He has been compliant with ICC/LABA/Anticholingeric therapy and with mucus clearing techniques. Of note- KATHLEEN documentationfrom 09/15 visit mentioned edema of the lower extremities. The does not feel this is worse. I do not see a recent BNP on file. Reiterated UC and is agreeable to this plan. Tyrell Lamar LPN documented in this encounterPromedica Memorial Hospital07-23-2024 Telephone encounter Note * Telephone Encounter - Brigette Campos RN - 09/22/2023 8:40 AM EDT Patient requesting refills as follows: Requested Prescriptions Pending Prescriptions Disp Refills atorvastatin (LIPITOR) 40 mg tablet 90 tablet 3 Sig: Take 1 tablet by mouth once daily. Please review and advise. Brigette Campos RN [facility]07-23-2024 Miscellaneous Notes* Telephone Encounter - Brigette Campos RN - 09/22/2023 8:40 AM EDT Patient requesting refills as follows: Requested Prescriptions Pending Prescriptions Disp Refills atorvastatin (LIPITOR) 40 mg tablet 90 tablet 3 Sig: Take 1 tablet by mouth once daily. Please review and advise. Brigette Campos RN documented in this encounterPromedica Memorial Hospital07-22-2024 History of Present illness Narrative* Mei Cummins MD - 09/21/2023 1:40 PM EDT Chief Complaint Patient presents with: F/U 3 Month HPI Oswaldo Corley is a 83 year old male who presents here today for 3 month follow up. Pt here today for his routine follow up. Here with his . Overall doing well at this time. Denies doing too much this summer. SILVER/Depression: Chronic; taking Ativan 1 mg, half to 1 pill TID and Cymbalta 30 mg daily. Follows with Palliative Care Karla every 2-3 months. Lipid/CAD: Is taking Lipitor 20 mg daily, Plavix 75 mg daily, and ASA 81 mg daily. Little exercise due to his COPD but tries to watch diet. PAD/Ulcer: PAD/Ulcer: Follows with Vascular, Dr. Rivas. Had angiogram due to PAD. Taking Plavix 75mg daily. DM: Denies checking BS at home, hypoglycemic episodes or neuropathy sx. No medications. Does try towatch his diet. Is not able to exercise due to his COPD and not being able to do it. HTN: Checking BP occ at home if he feels it might be high. No chest pain or unusual SOB. Notes someslight dizziness or feeling of off balance due to Oxycodone. Slight lower leg swelling. Has Nitro to use prn. Follows with Dr. Manzano, Cardio. COPD/lung cancer: Follows with Pulm Dr. Calvillo and Palliative Medicine. Is on Oxycodone 5 mg, 1-2 pills daily as needed. Uses Oxygen 3-4 L continuously, occasionally 5-6 L at times if exerting himself. Follows with Dr. Meraz. Is on Prednisone 10 mg daily. He checks his Pulse Ox at home, states this has been doing good, but breathing gets heavy from time to time. Gets sob with exerting himself. Wasstarted on Trelegy Inhaler, but didn't like it after using this once. Went back to his normal regimen of Advair, Spiriva, Albuterol Inhaler prn and Mucinex. Does take Eliquis 5 mg 1 tab po bid for hxof lower leg DVT. Gets occ nose bleeds on right side that limits his breathing; uses saline nasal spray Pain: Chronic. Taking Oxycodone 1 pill 2-3 x a day which is prescribed through palliative medicine.Follows with Dr. Steward, has had injection. HM - Shingles vaccine through the Pharmacy due to Medicare Insurance. Will wait november to receive Covid vaccine. Past medical history, appointments, medications, allergies reviewed. Previous Medical History PAST MEDICAL HISTORY Diagnosis Date Abdominal aortic aneurysm (AAA) without rupture (HCC) 11/19/2018 Atypical chest pain CAD (coronary artery disease) s/p CABG 1999, PCI w/ stents Chronic respiratory failure (HCC) COPD (chronic obstructive pulmonary disease) (HCC) Hyperlipidemia Hyperlipidemia Hypertension Lung cancer (HCC) Prostate cancer (HCC) Dx Dec 2014, s/p radiation, on hormonal therapy Ulcer of right foot (HCC) 04/30/2022 Previous Surgical History PAST SURGICAL HISTORY Procedure Laterality Date ANGIOGRAM EXTREMITY LUNG BIOPSY Left needle biopsy LUNG SURGERY HX 02/20/20 lt lung nodule removed PAST SURGICAL HISTORY OF TURP PAST SURGICAL HISTORY OF 03/02/1999 triple bypass PAST SURGICAL HISTORY OF Left 09/04/2022 Skin biopsy left upper cheek face PAST SURGICAL HISTORY OF LE vascular Family History FAMILY HISTORY Problem Relation Age of Onset Cancer Mother 49 breast, bone Diabetes Father Heart Father Cancer Sister breast Emphysema Sister Smoker Diabetes Brother Heart Brother other (Other) Brother Parkinsons Diabetes Paternal Grandmother Heart Paternal Grandmother Patient Allergies ALLERGIES Allergen Reactions Imdur [Isosorbide M* Hives Black out and dizziness Current Medications Current Outpatient Medications on File Prior to Visit Medication Sig LORazepam (ATIVAN) 1 mg tablet Take 1 tablet by mouth three times a day for 90 days. iv contrast (will be provided with radiology test) CT Chest W -Inject, intravenously, once for 1 dose.No IV access, insert saline lock prior to the beginning of sedation, infusion, injection of imaging exam. Discontinue saline lock post exam. If Pt. has a central line or IVAD, may access for administration according to line specific nursing protocol. Once exam is complete flush line and de-accessaccording to line specific nursing protocol in the CT contrast administration guidelines link. predniSONE (DELTASONE) 10 mg tablet Take 1 tablet by mouth once daily. ezetimibe (ZETIA) 10 mg tablet Take 1 tablet by mouth once daily. SPIRIVA RESPIMAT 2.5 mcg/actuation inhaler Inhale 2 Puffs as instructed once daily. iv contrast (will be provided with radiology test) CT Chest W -Inject, intravenously, once for 1 dose.No IV access, insert saline lock prior to the beginning of sedation, infusion, injection of imaging exam. Discontinue saline lock post exam. If Pt. has a central line or IVAD, may access for administration according to line specific nursing protocol. Once exam is complete flush line and de-accessaccording to line specific nursing protocol in the CT contrast administration guidelines link. apixaban (ELIQUIS) 5 mg tab(s) Take 1 tablet by mouth two times a day. ADVAIR HFA 230-21 mcg/actuation inhaler Inhale 2 Puffs as instructed two times a day. nitroglycerin sublingual (NITROSTAT) 0.4 mg SL tablet Dissolve 1 tablet under the tongue every 5 minutes as needed. atorvastatin (LIPITOR) 40 mg tablet Take 1 tablet by mouth once daily. acetaminophen 325 mg cap Take 650 mg by mouth every 8 hours as needed. oxyCODONE IR (ROXICODONE) 5 mg immediate release tablet Take 5 mg by mouth four times a day as needed. guaiFENesin (MUCINEX) 600 mg 12 hr tablet Take 1,200 mg by mouth two times a day. DULoxetine (CYMBALTA) 30 mg capsule Take 30 mg by mouth once daily. ondansetron (ZOFRAN) 4 mg tablet 1 tablet as needed. aspirin, enteric coated (ASPIRIN, ENTERIC COATED) 81 mg EC tablet Take 81 mg by mouth once daily. albuterol HFA (PROAIR HFA) 90 mcg/actuation inhaler Inhale 2 Puffs as instructed every 4 hours as needed for Wheezing/Shortness of Breath. No current facility-administered medications on file prior to visit. Social History Social History Tobacco Use Smoking status: Former Packs/day: 2.00 Years: 40.00 Additional pack years: 0.00 Total pack years: 80.00 Types: Cigarettes Start date: 11/08/1962 Quit date: 05/13/2002 Years since quittin.3 Smokeless tobacco: Never Vaping Use Vaping Use: Never used Substance Use Topics Alcohol use: Not Currently Alcohol/week: 3.0 standard drinks of alcohol Types: 3 Cans of beer per week Comment: light beer Drug use: No EXAM: BP 128/72 (BP Site: Left Arm, BP Position: Sitting, BP Cuff Size: Regular Adult) Pulse 66 Resp 20 Wt 82.5 kg (181 lb 12.8 oz) SpO2 100% BMI 25.36 kg/m General Appearance: Well appearing, alert, in no acute distress, well-hydrated, well nourished. Uses wheelchair to get back to appt's, able to walk into the room. Using portable O2. Lungs: Lungs clear to auscultation. No wheezing, rhonchi, rales.. Heart: RRR without murmur, gallop, or rubs. No ectopy. Extremities: Minimal edema noted to b/l lower legs. Health Maintenance List Urine Albumin:Creatinine Ratio Never done Dilated Retinal Exam Never done Diabetic Foot Exam Never done DTaP,Tdap,Td Vaccine(1 - Tdap) Never done Shingrix Vaccine(1 of 2) Never done HbA1C due on 12/24/2022 Covid-19 Vaccine(2022- season) due on 04/21/2023 Influenza Vaccine(1) due on 11/01/2023 LDL Cholesterol due on 04/02/2024 Spirometry Completed Advance Directive Discussion Completed RSV Vaccine Completed Pneumococcal Vaccine: 65+ Completed HPV Vaccine Aged Out Colorectal Cancer Screening Discontinued Data reviewed None ASSESSMENT/PLAN: 1. Anxiety - ICD9: 300.00, ICD10: F41.9 (primary diagnosis) - Stable - Continue current medication regimen. 2. Moderate recurrent major depression (HCC) - ICD9: 296.32, ICD10: F33.1 - Stable - Continue current medication regimen. 3. Essential hypertension - ICD9: 401.9, ICD10: I10 - Controlled - Continue current medications - Recommend home blood pressure monitoring, to bring results to next visit - Encouraged sodium restriction, DASH or Mediterranean diet - Recommend regular aerobic exercise 4. Elevated glucose - ICD9: 790.29, ICD10: R73.09 - Stable continue watching diet and exercise 5. Hyperlipidemia, mixed - ICD9: 272.2, ICD10: E78.2 - Controlled - Continue current medications - Counseled on healthy diet and regular exercise 6. Coronary artery disease involving [place] coronary artery of [place] heart without angina pectoris- ICD9: 414.01, ICD10: I25.10 - Continue current medication regimen. - See Pulm 7. PAD (peripheral artery disease) (HCC) - ICD9: 443.9, ICD10: I73.9 - Continue current medication regimen. - See Vascular 8. Chronic obstructive pulmonary disease, unspecified COPD type (HCC) - ICD9: 496, ICD10: J44.9 - Continue current medication regimen. - Cont f/u with Pulm 3 month follow up. I agree with the Chief Complaint, ROS, and Past Histories independently gathered by the clinical product support technician and the remaining scribed note accurately describes my personal service to the patient. Medical Decision Making: Problems: Moderate: 2+ stable chronic illnesses Risk: Moderate: Drug management Medical Decision Making Level: 4 - Moderate Mei Cummins MD The documentation for this note was completed by Vickie Carrillo MA acting as scribe for Mei Cummins MD. September 21, 2023 1:32 PM. Vickie Carrillo MA documented in this encounterPromedica [facility]07-22-2024 Note[facility]07-[facility] Telephone encounter Note* Telephone Encounter - Rosalie Mitchell RN - 09/20/2023 11:35 AM EDT Patient calling regarding medication Trelegy not helping as well as Advair & Spireva and wanting to switch back to these meds. Conferenced to [facility] gear hobber operatorAsmita, to speak with provider continuous improvement engineer for Rosalie Martinez. GO TO THE EMERGENCY ROOM OR CALL 911 IF: * You develop any new symptoms * Your condition worsens * You are concerned or anxious about your condition for any other reason. If you have any questions, you can call Nurse section supervisor back. [facility]07-21-2024 Miscellaneous Notes* Telephone Encounter - Rosalie Mitchell RN - 09/20/2023 11:35 AM EDT Patient calling regarding medication Trelegy not helping as well as Advair & Spireva and wanting to switch back to these meds. Conferenced to [facility] gear hobber operatorAsmita to speak with provider continuous improvement engineer for Rosalie Martinez. GO TO THE EMERGENCY ROOM OR CALL 911 IF: * You develop any new symptoms * Your condition worsens * You are concerned or anxious about your condition for any other reason. If you have any questions, you can call Nurse section supervisor back. documented in this encounterPromedica Memorial Hospital07-17-2024 History of Present illness Narrative* Kailash Cordova APRN.LEGAL STENOGRAPHER - 09/16/2023 2:00 PM EDT Images from the original note were not included. 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 Current inhaler therapy includes Advair, Spiriva and PRN Albuterol. He is also on chronic oral steriods, mucous clearance techniques and supplemental O2. He had a PET scan earlier this year with concern for reoccurrence of lung cancer. CT guided biopsy in June 2023 of the left lung that did not reveal malignancy. He continues to follow-up with Dr Meraz. He has had multiple chest CT's monitoring multiple lung nodules, including a new nodule in the LLL. His next chest CT is scheduled in September. Today, he reports respiratory symptoms are at baseline. He has a daily productive cough with occasional light green sputum. No recent hemoptysis. Has occasional wheezing at night. Has dysnpea with minimal exertion. No fevers, chills, or night sweats. No unintended weight loss. No recent hospitalizations or ED visits or upper respiratory infections. Uses Albuterol BID. Notes improvement in SOB symptoms with Oxycodone. Receives palliative services through hospice. DME: [employer] Currently wearing 3L O2 continuously PAST MEDICAL HISTORY Diagnosis Date Abdominal aortic aneurysm (AAA) without rupture (HCC) 11/19/2018 Atypical chest pain CAD (coronary artery disease) s/p CABG 1999, PCI w/ stents Chronic respiratory failure (HCC) COPD (chronic obstructive pulmonary disease) (HCC) Hyperlipidemia Hyperlipidemia Hypertension Lung cancer (HCC) Prostate cancer (HCC) Dx Dec 2014, s/p radiation, on hormonal therapy Ulcer of right foot (HCC) 04/30/2022 Allergies: Imdur [Isosorbide M* Hives Comment:Black out and dizziness Medication List Accurate as of September 16, 2023 8:42 AM. If you have any questions, ask your nurse or doctor. CONTINUE taking these medications acetaminophen 325 mg Cap ADVAIR HFA 230-21 mcg/actuation inhaler Generic drug: fluticasone-salmeterol HFA Inhale 2 Puffs as instructed two times a day. albuterol HFA 90 mcg/actuation inhaler Commonly known as: PROAIR HFA Inhale 2 Puffs as instructed every 4 hours as needed for Wheezing/Shortness of Breath. apixaban 5 mg tab(s) Commonly known as: ELIQUIS Take 1 tablet by mouth two times a day. aspirin, enteric coated 81 mg EC tablet Commonly known as: ASPIRIN, ENTERIC COATED atorvastatin 40 mg tablet Commonly known as: LIPITOR Take 1 tablet by mouth once daily. DULoxetine 30 mg capsule Commonly known as: CYMBALTA ezetimibe 10 mg tablet Commonly known as: ZETIA Take 1 tablet by mouth once daily. guaiFENesin 600 mg 12 hr tablet Commonly known as: MUCINEX * iv contrast (will be provided with radiology test) CT Chest W -Inject, intravenously, once for 1 dose.No IV access, insert saline lock prior to the beginning of sedation, infusion, injection of imaging exam. Discontinue saline lock post exam. If Pt. has a central line or IVAD, may access for administration according to line specific nursing protocol. Once exam is complete flush line and de-access according to line specific nursing protocol in theCT contrast administration guidelines link. * iv contrast (will be provided with radiology test) CT Chest W -Inject, intravenously, once for 1 dose.No IV access, insert saline lock prior to the beginning of sedation, infusion, injection of imaging exam. Discontinue saline lock post exam. If Pt. has a central line or IVAD, may access for administration according to line specific nursing protocol. Once exam is complete flush line and de-access according to line specific nursing protocol in theCT contrast administration guidelines link. LORazepam 1 mg tablet Commonly known as: ATIVAN Take 1 tablet by mouth three times a day for 90 days. nitroglycerin sublingual 0.4 mg SL tablet Commonly known as: NITROSTAT Dissolve 1 tablet under the tongue every 5 minutes as needed. ondansetron 4 mg tablet Commonly known as: ZOFRAN oxyCODONE IR 5 mg immediate release tablet Commonly known as: ROXICODONE predniSONE 10 mg tablet Commonly known as: DELTASONE Take 1 tablet by mouth once daily. SPIRIVA RESPIMAT 2.5 mcg/actuation inhaler Generic drug: tiotropium bromide Inhale 2 Puffs as instructed once daily. * This list has 2 medication(s) that are the same as other medications prescribed for you. Read thedirections carefully, and ask your doctor or other care provider to review them with you. DATA: I personally reviewed and analyzed all labs, radiographs and available pulmonary function testing PFT: 11/07/202209/2022 IMPRESSION: Spirometry indicates severe obstruction. There was not a significant bronchodilator response. The diffusing capacity is moderately reduced. CXR: Last XR Chest - Impression Only XR CHEST 1V FRONTAL Exam End: 06/17/2023 2:16 PM (Final result) Impression: IMPRESSION: No pneumothorax status post left lung biopsy ... CT Chest: 07/30/2023 IMPRESSION: 1. New mass in the medial left lower lobe abutting the pleural surface 2. Increasing nodular thickening along the posterior wall of a cystic lesion in the superior segment of the left lower lobe 3. Irregular density in the left upper lobe appears unchanged in size. Stable appearance of multiple bilateral pulmonary nodules. 4. No new thoracic lymphadenopathy 5. Unchanged thick-walled lateral left lower lobe loculated pneumothorax [facility] Transcribe Date/Time: Aug 06 2023 8:33A Dictated by : MIRNA MILTON MD This examination was interpreted and the report reviewed and electronically signed by: MIRNA MILTON MD on Aug 06 2023 8:53AM EST Results-Findings * * *Final Report* * * DATE OF EXAM: Jul 30 2023 11:56AM [facility] 0539 - CT CHEST W IVCON / PROCEDURE REASON: Squamous carcinoma of lung, left (HCC) * * * * Physician Interpretation * * * * EXAMINATION: CHEST CT WITH CONTRAST CLINICAL HISTORY: Squamous carcinoma of lung, left. History of radiation therapy. Technique: Spiral CT acquisition of the chest from the thoracic inlet to the upper abdomen following IV contrast. MQ: [id number] Contrast: 50 mL Omnipaque [address] Radiation dose: Integrated Dose-length product (DLP) for this visit = 240 mGy*cm CT Dose Reduction Employed: Automated exposure control(AEC) and iterative recon Comparison: CT chest 05/21/2023 RESULT: Limitations: None. Lines, tubes, and devices: None. Lung parenchyma and airways: There is a new 2.4 x 1.6 cm mass in the medial left lower lobe abutting the pleural surface (7:122). Increasing nodular thickening along the posterior wall of a cystic lesion in the superior segment of the left lower lobe. The nodular thickening measures 2.2 x 1.6 cm (7:87), previously 2 x 1.2 cm. Irregular 3.2 x 1.1 cm lesion (7:60) in the left upper lobe has not appreciably changed in size. Stable 5 mm nodule adjacent to it (7:59). Stable 1.6 x 1.1 cm nodular density is adjacent to scarring in the right lung base (7:153). Stable 1.2 x 0.7 cm nodule in the posterior right lung base (7:185). Stable subcentimeter nodules in the left lung. Centrilobular emphysema. Retained secretions in the trachea. Central airways are patent. Pleural space: Unchanged thick-walled lateral left lower lobe loculated pneumothorax. Stable bilateral pleural calcifications. Lower neck, lymph nodes, and mediastinum: The imaged thyroid gland is normal. No lymphadenopathy in the supraclavicular, axillary, mediastinal, or hilar regions. Heart, pericardium, and thoracic vessels: The thoracic aorta and main pulmonary artery are normal in caliber. The cardiac chambers are normal in size. Coronary artery atherosclerotic calcifications are noted, although the study is not optimized for coronary assessment. No pericardial effusion or thickening. Bones and soft tissues: No destructive bone lesion. Median sternotomy wires are noted. No chest wall mass. Upper abdomen: No abnormality in the imaged upper abdomen. Localizer images: No additional findings. IMMUNIZATIONS Prevnar - xx Pneumovax 23 - xx Influenza - 11/2022 COVID-19 - 11/2022 RSV- xx Review of Systems Constitutional: Negative for activity change, appetite change and unexpected weight change. HENT: Positive for rhinorrhea. Negative for congestion, mouth sores and sinus pressure. Respiratory: Positive for cough, shortness of breath and wheezing. Negative for chest tightness. Cardiovascular: Negative for chest pain, palpitations and leg swelling. Musculoskeletal: Positive for arthralgias. Allergic/Immunologic: Negative for environmental allergies. Neurological: Negative for weakness and light-headedness. Hematological: Bruises/bleeds easily. BP 132/72 Pulse 74 SpO2 98% Physical Exam Vitals reviewed. Constitutional: General: He is not in acute distress. Appearance: Normal appearance. He is normal weight. He is not ill-appearing. HENT: Head: Normocephalic. Nose: Nose normal. No congestion or rhinorrhea. Cardiovascular: Rate and Rhythm: Normal rate and regular rhythm. Heart sounds: Normal heart sounds. Musculoskeletal: Right lower leg: Edema present. Left lower leg: Edema present. Skin: General: Skin is warm. Capillary Refill: Capillary refill takes 2 to 3 seconds. Findings: Bruising present. Neurological: General: No focal deficit present. Mental Status: He is alert. ASSESSMENT/PLAN: 1. 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) - ICD9: 496, ICD10: J44.9 (primary diagnosis) - switch to Trelegy Ellipta 100 from Advair and Spiriva (patient to notify if not cost effective) - FLUTICASONE FUR. 100 MCG-UMECLID 62.5 MCG-VILANT 25 MCG INHALAT.POWDER - Continue Albuterol PRN - On chronic Prednisone - On Oxycodone for SOB through palliative medicine 2. Chronic hypoxemic respiratory failure (HCC) - ICD9: 518.83, 799.02, ICD10: J96.11 - patient compliant and continues to benefit from supplemental O2 3. History of cancer of lower lobe bronchus or lung - ICD9: V10.11, ICD10: Z85.118 - squamous cell carcinoma of the lung s/p wedge resection 2019 - recent PET with concern for recurrence, Biopsy negative 06/2023 - Followed by Dr. Meraz - scheduled for follow-up CT in September for continued surveillance 4. Lung nodule - ICD9: 793.11, ICD10: R91.1 - multiple nodules - new nodule in the LLL - close follow-up with CT scheduled in September 5. Bronchiectasis without complication (HCC) - ICD9: 494.0, ICD10: J47.9 - patient compliant with vest therapy BID - continue with mucous clearing techniques F/u 6 months, sooner if needed Portions of this documentation were copied and pasted from previous office visit notes in order to provide a cohesive continuity of the history. The note has been reviewed and edited and updated as necessary. Kailash Cordova APRN.LEGAL STENOGRAPHER Associated attestation - Rosalie Martinez PA-C - 09/17/2023 10:50 AM EDT I have personally performed a face to face assessment of the patient and have reviewed the KATHLEEN note. My wadsworth findings include: Exam is as documented. Assessment/Plan discussed and reflected in note. Other additions or changes: As edited Signature: Rosalie Martinez Date: 09/17/2023 Time: 10:49 AM documented in this encounterPromedica [facility]07-17-2024 [facility]06-24-2024 Telephone encounter Note* Telephone Encounter - Mei Cummins MD - 08/24/2023 12:07 PM EDT OK to refill as ordered Mei Cummins MD [facility]06-24-[facility]24 Miscellaneous Notes* Telephone Encounter - Mei Cummins MD - 08/24/2023 12:07 PM EDT OK to refill as ordered Mei Cummins MD * Telephone Encounter - Erica Hunt LPN - 08/24/2023 7:29 AM EDT JOSE M-06/22/23 Labs-06/15/23 NOV-09/21/23 Erica Hunt LPN documented in this encounterPromedica Memorial Hospital06-24-2024 Telephone encounter Note * Telephone Encounter - Naty Villarreal - 08/24/2023 11:36 AM EDT Spoke with patient's spouse and scheduled as directed. Naty Villarreal [facility]06-24-2024 Miscellaneous Notes* Telephone Encounter - Naty Villarreal - 08/24/2023 11:36 AM EDT Spoke with patient's spouse and scheduled as directed. Naty Villarreal * Telephone Encounter - Radha Pearson LPN - 08/24/2023 9:26 AM EDT PSS- please contact patient's to schedule CT chest in 2 months. She is expecting the call. Dr. Meraz- please file order. Radha Pearson LPN documented in this encounterPromedica Memorial Hospital06-24-2024 Telephone encounter Note * Telephone Encounter - Radha Peasron LPN - 08/24/2023 9:26 AM EDT PSS- please contact patient's to schedule CT chest in 2 months. She is expecting the call. Dr. Meraz- please file order. Radha Pearson LPN [facility] Telephone encounter Note* Telephone Encounter - Erica Hunt LPN - 08/24/2023 7:29 AM EDT JOSE M-06/22/23 Labs-06/15/23 NOV-09/21/23 Erica Hunt LPN [facility]06-[facility] History of Present illness Narrative* Tyrell Vigil Bruno, DO - 08/18/2023 9:50 AM EDT Images from the original note were not included. Heart , Vascular and Thoracic [place] DEPARTMENT OF VASCULAR SURGERY OUTPATIENT VISIT DATE August 18, 2023 OUTPATIENT VISIT TYPE ESTABLISHED SERVICE DATE: 08/18/2023 SERVICE TIME: 9:52 AM PRIMARY CARE PHYSICIAN: Mei Cummins MD HISTORY OF PRESENT ILLNESS: Mr. Corley is a 83 year old male who presents today for a vascular surgery follow-up visit after vascular testing. He has a history of right iliofemoral and profunda endarterectomy with external iliac stenting in [address] Rivas. Known occlusion of left external iliac artery. PAST MEDICAL HISTORY Diagnosis Date Abdominal aortic aneurysm (AAA) without rupture (HCC) 11/19/2018 Atypical chest pain CAD (coronary artery disease) s/p CABG 1999, PCI w/ stents Chronic respiratory failure (HCC) COPD (chronic obstructive pulmonary disease) (HCC) Hyperlipidemia Hyperlipidemia Hypertension Lung cancer (HCC) Prostate cancer (HCC) Dx Dec 2014, s/p radiation, on hormonal therapy Ulcer of right foot (HCC) 04/30/2022 PAST SURGICAL HISTORY Procedure Laterality Date ANGIOGRAM EXTREMITY LUNG BIOPSY Left needle biopsy LUNG SURGERY HX 02/20/20 lt lung nodule removed PAST SURGICAL HISTORY OF TURP PAST SURGICAL HISTORY OF 03/02/1999 triple bypass PAST SURGICAL HISTORY OF Left 09/04/2022 Skin biopsy left upper cheek face PAST SURGICAL HISTORY OF LE vascular SOCIAL HISTORY Social History Tobacco Use Smoking status: Former Packs/day: 2.00 Years: 40.00 Additional pack years: 0.00 Total pack years: 80.00 Types: Cigarettes Start date: 11/08/1962 Quit date: 05/13/2002 Years since quittin.2 Smokeless tobacco: Never Vaping Use Vaping Use: Never used Substance Use Topics Alcohol use: Not Currently Alcohol/week: 3.0 standard drinks of alcohol Types: 3 Cans of beer per week Comment: light beer Drug use: No MEDICATIONS: predniSONE (DELTASONE) 10 mg tablet Take 1 tablet by mouth once daily. ezetimibe (ZETIA) 10 mg tablet Take 1 tablet by mouth once daily. SPIRIVA RESPIMAT 2.5 mcg/actuation inhaler Inhale 2 Puffs as instructed once daily. LORazepam (ATIVAN) 1 mg tablet Take 1 tablet by mouth three times a day for 90 days. iv contrast (will be provided with radiology test) CT Chest W -Inject, intravenously, once for 1 dose.No IV access, insert saline lock prior to the beginning of sedation, infusion, injection of imaging exam. Discontinue saline lock post exam. If Pt. has a central line or IVAD, may access for administration according to line specific nursing protocol. Once exam is complete flush line and de-accessaccording to line specific nursing protocol in the CT contrast administration guidelines link. apixaban (ELIQUIS) 5 mg tab(s) Take 1 tablet by mouth two times a day. ADVAIR HFA 230-21 mcg/actuation inhaler Inhale 2 Puffs as instructed two times a day. nitroglycerin sublingual (NITROSTAT) 0.4 mg SL tablet Dissolve 1 tablet under the tongue every 5 minutes as needed. atorvastatin (LIPITOR) 40 mg tablet Take 1 tablet by mouth once daily. acetaminophen 325 mg cap Take 650 mg by mouth every 8 hours as needed. oxyCODONE IR (ROXICODONE) 5 mg immediate release tablet Take 5 mg by mouth four times a day as needed. guaiFENesin (MUCINEX) 600 mg 12 hr tablet Take 1,200 mg by mouth two times a day. DULoxetine (CYMBALTA) 30 mg capsule Take 30 mg by mouth once daily. ondansetron (ZOFRAN) 4 mg tablet 1 tablet as needed. aspirin, enteric coated (ASPIRIN, ENTERIC COATED) 81 mg EC tablet Take 81 mg by mouth once daily. albuterol HFA (PROAIR HFA) 90 mcg/actuation inhaler Inhale 2 Puffs as instructed every 4 hours as needed for Wheezing/Shortness of Breath. ALLERGIES: ALLERGIES Allergen Reactions Imdur [Isosorbide M* Hives Black out and dizziness PHYSICAL EXAM: There were no vitals taken for this visit. General: Alert and oriented Integumentary: Normal color, no rash, no lesions. Extremities: trace edema, no tissue loss or ulceration, healed right heel ulceration Neurological: Normal cognition and motor skills. Vascular: non palpable distal pulses Diagnostic tests reviewed for today's visit: Most recent labs Most recent imaging PVRs- Compared to prior study of 02/03/2023, No significant change. RIGHT SIDE Resting right ankle brachial index: 1.30 Partially non-compressible arteries, TRAE not accurate. Right toe brachial index: 0.53 Non-compressible vessels, results called by PVR tracings. Abnormal toe brachial index at rest is evidence of peripheral artery disease. Right ankle: Moderate disease at rest. LEFT SIDE Resting left ankle brachial index: 1.80 Non-compressible arteries, TRAE not accurate. Left toe brachial index: 0.35 Non-compressible vessels, results called by PVR tracings. Abnormal toe brachial index at rest is evidence of peripheral artery disease. Left ankle: Moderate disease at rest. Aortic Duplex: Compared to prior study of 12/18/2020, Aorta measured 3.2 x 3.1 cm. AORTA Infrarenal abdominal aortic aneurysm measuring 3.4 x 3.4 cm at mid. Bi-lobed aneurysm. Aorta plaque noted without evidence of hemodynamically significant stenosis . RIGHT VESSELS Common iliac artery patent without evidence of aneurysm . Common iliac artery plaque noted without evidence of hemodynamically significant stenosis . External iliac artery is patent . Stent noted. Unable to visualize the internal iliac artery. Patent common femoral artery. Patch noted. Superficial femoral artery origin: occluded. Profunda artery proximal: patent. LEFT VESSELS Common iliac artery patent without evidence of aneurysm . Common iliac artery plaque noted without evidence of hemodynamically significant stenosis . Internal iliac artery patent without evidence of aneurysm at proximal. Occluded external iliac artery from proximal to mid. Reconstitutes distal. Common femoral artery: plaque without stenosis. Superficial femoral artery origin: occluded. Profunda artery proximal: plaque without stenosis. IMPRESSION: Mr. Corley is a 83 year old male with peripheral arterial disease and small infrarenal AAA . PLAN and RECOMMENDATIONS: Continue current medications Continue routine foot care Follow up in 6 months SIGNATURE: Tyrell Vigil DO PATIENT NAME: Oswaldo Corley DATE: August 18, 2023 TIME: 9:52 AM documented in this encounterPromedica Memorial Hospital06-10-2024 Telephone encounter Note * Telephone Encounter - Radha Pearson LPN - 08/10/2023 9:23 AM EDT Patient's notified. Radha Pearson LPN [facility]06-[facility] Miscellaneous Notes* Telephone Encounter - Radha Pearson LPN - 08/10/2023 9:23 AM EDT Patient's notified. Radha Pearson LPN * Telephone Encounter - Salazar Meraz DO - 08/10/2023 6:33 AM EDT Can let him know that the chest CT revealed a number of the small nodules in the lungs appear stable. A little progression of the thickening along the left chest wall area, but there is a new area ofa larger nodule in the lower left lung. I have a message out to one of the pulmonologists who performs more advanced bronchoscopy to see if that lesion could be biopsied. We will let him know once I hear back. Salazar Meraz DO documented in this encounterPromedica Memorial Hospital06-10-2024 Telephone encounter Note * Telephone Encounter - Salazar Meraz DO - 08/10/2023 6:33 AM EDT Can let him know that the chest CT revealed a number of the small nodules in the lungs appear stable. A little progression of the thickening along the left chest wall area, but there is a new area ofa larger nodule in the lower left lung. I have a message out to one of the pulmonologists who performs more advanced bronchoscopy to see if that lesion could be biopsied. We will let him know once I hear back. Salazar Meraz DO [facility]05-30-[facility] History of Present illness Narrative* Reef Summer Clark, RT(R) - 07/30/2023 11:20 AM EDT Radiology Service Progress Note DATE OF SERVICE: July 30, 2023 TIME: 12:36 PM PATIENT IDENTITY VERIFICATION COMPLETED USING TWO (2) STANDARD IDENTIFIERS: Name and Date of confirmed by patient verbally. FALL SCREENING: Has the patient had 2 falls in the last year or 1 fall with injury or currently using an Ambulatory Assistive Device (Walker, Cane, Wheelchair, Crutches, etc.)? No PATIENT GENDER DATA: Male PATIENT RELEVANT IMPLANT DATA REVIEWED: Yes PATIENT PRESENTS WITH AN IMPLANTABLE OR ATTACHED TOWER HELPER: No ALLERGIES: Reviewed and unchanged CONTRAST ALLERGY: NO. EXAM: CT -CONTRAST INDUCED NEPHROPATHY RISK FACTORS: Patient age > 60 years CREATININE: Creatinine Date Value Ref Range Status 07/30/2023 0.90 0.73 - 1.22 mg/dL Final 05/21/2023 0.90 0.73 - 1.22 mg/dL Final 04/02/2023 0.87 0.73 - 1.22 mg/dL Final Estimated Glomerular Filtration Rate Date Value Ref Range Status 07/30/2023 86 >=60 mL/min/1.73m Final Comment: Estimated Glomerular Filtration Rate (eGFR) is calculated using the 2020 CKD-EPI creatinine equation. This equation utilizes serum creatinine, sex, and age as parameters. The creatinine assay has traceable calibration to isotope dilution- mass spectrometry. Refer to KDIGO guidelines for clinical interpretation. In patients with unstable renal function, e.g. those with acute kidney injury, the eGFRmay not accurately reflect actual GFR. eGFR- Date Value Ref Range Status 04/23/2021 >60 Final P.O.C.T. RESULTS: POC done: Yes, See Lab Tab July 30, 2023 TREATMENT: N/A PERIPHERAL IV DATA: Ambulatory: A peripheral IV was started in the Left antecubital site with a Angio cath: 22 gauge. RADIOLOGY DEPARTMENT: CT; Exam(s) Completed: Chest SIGNATURE: RT Joey(R) PATIENT NAME: Oswaldo Corley DATE: July 30, 2023 TIME: 12:36 PM documented in this encounterPromed[facility]05-28-[facility] Telephone encounter Note * Telephone Encounter - Jailyn Acosta PSS - 07/28/2023 3:[address] order for stat creatinine order for pt , pt appt on 07/30/[address] [facility] Miscellaneous Notes* Telephone Encounter - Jailyn Acosta PSS - 07/28/2023 3:[address] order for stat creatinine order for pt , pt appt on 07/30/[address] documented in this encounterPromedica [facility]05-20-2024 Telephone encounter Note * Telephone Encounter - Tyrell Lamar LPN - 2023 8:51 AM EDT Patient phones requesting refills as follows: JOSE M: 05/12/23 Requested Prescriptions Pending Prescriptions Disp Refills predniSONE (DELTASONE) 10 mg tablet 30 tablet 5 Sig: Take 1 tablet by mouth once daily. Please review and advise. Tyrell Lamar LPN [facility]05-20-[facility] Miscellaneous Notes* Telephone Encounter - Tyrell Lamar LPN - 2023 8:51 AM EDT Patient phones requesting refills as follows: JOSE M: 05/12/23 Requested Prescriptions Pending Prescriptions Disp Refills predniSONE (DELTASONE) 10 mg tablet 30 tablet 5 Sig: Take 1 tablet by mouth once daily. Please review and advise. Tyrell Lamar LPN documented in this encounterPromedica [facility]04-22-2024 History of Present illness Narrative* Mei Cummins MD - 06/22/2023 1:20 PM EDT Chief Complaint Patient presents with: F/U 3 Month HPI Oswaldo Corley is a 82 year old male who presents here today for 3 month follow up. Here with . Has an advanced directive. No falls, he does not use any walkers or canes at home. Uses the Wheelchair when he is outside the home due to the COPD. Follows with [facility] Riojas. No bowel, gi, or urinary issues. Taking Flomax 0.4 mg daily. DM: Denies checking BS at home, hypoglycemic episodes or neuropathy sx. No medications. HTN: Checking BP occ at home if he feels it might be high. No chest pains, dizziness, or unusual SOB. Follows with Dr. Manzano, Cardio. Lipid/CAD: Is taking Lipitor 20 mg daily, Plavix 75 mg daily, and ASA 81 mg daily. Little exercise due to his COPD but tries to watch diet. PAD/Ulcer: PAD/Ulcer: Follows with Vascular, Dr. Rivas. Had angiogram due to PAD. Taking Plavix 75mg daily. SILVER/Depression: Chronic; taking Ativan 1 mg, half to 1 pill TID and Cymbalta 30 mg daily. Follows with Palliative Care [facility]la every 2-3 months. He feels he is on the good side of the fence, especially since getting good news back on the bx. COPD/lung cancer: Follows with Pulm Dr. Calvillo and Palliative Medicine. Is on Oxycodone 5 mg, 1-2 pills daily as needed. Uses Oxygen 3-[address] L [address] Meraz. Is on Prednisone 10 mg daily. He checks his Pulse Ox which runs 93%-100%, without oxygen will drop to around 90%. Pain: Chronic, using Oxycodone through Palliative Medicine, takes 1 tablet 2-3 times per day. Had pain injection done by Dr. Steward. Past medical history, appointments, medications, allergies reviewed. Previous Medical History PAST MEDICAL HISTORY Diagnosis Date Abdominal aortic aneurysm (AAA) without rupture (HCC) 11/19/2018 Atypical chest pain CAD (coronary artery disease) s/p CABG 1999, PCI w/ stents Chronic respiratory failure (HCC) COPD (chronic obstructive pulmonary disease) (HCC) Hyperlipidemia Hyperlipidemia Hypertension Lung cancer (HCC) Prostate cancer (HCC) Dx Dec 2014, s/p radiation, on hormonal therapy Ulcer of right foot (HCC) 04/30/2022 Previous Surgical History PAST SURGICAL HISTORY Procedure Laterality Date ANGIOGRAM EXTREMITY LUNG BIOPSY Left needle biopsy LUNG SURGERY HX 02/20/20 lt lung nodule removed PAST SURGICAL HISTORY OF TURP PAST SURGICAL HISTORY OF 03/02/1999 triple bypass PAST SURGICAL HISTORY OF Left 09/04/2022 Skin biopsy left upper cheek face PAST SURGICAL HISTORY OF LE vascular Family History FAMILY HISTORY Problem Relation Age of Onset Cancer Mother 49 breast, bone Diabetes Father Heart Father Cancer Sister breast Emphysema Sister Smoker Diabetes Brother Heart Brother other (Other) Brother Parkinsons Diabetes Paternal Grandmother Heart Paternal Grandmother Patient Allergies ALLERGIES Allergen Reactions Imdur [Isosorbide M* Hives Black out and dizziness Current Medications Current Outpatient Medications on File Prior to Visit Medication Sig ezetimibe (ZETIA) 10 mg tablet Take 1 tablet by mouth once daily. SPIRIVA RESPIMAT 2.5 mcg/actuation inhaler Inhale 2 Puffs as instructed once daily. LORazepam (ATIVAN) 1 mg tablet Take 1 tablet by mouth three times a day for 90 days. iv contrast (will be provided with radiology test) CT Chest W -Inject, intravenously, once for 1 dose.No IV access, insert saline lock prior to the beginning of sedation, infusion, injection of imaging exam. Discontinue saline lock post exam. If Pt. has a central line or IVAD, may access for administration according to line specific nursing protocol. Once exam is complete flush line and de-accessaccording to line specific nursing protocol in the CT contrast administration guidelines link. apixaban (ELIQUIS) 5 mg tab(s) Take 1 tablet by mouth two times a day. ADVAIR HFA 230-21 mcg/actuation inhaler Inhale 2 Puffs as instructed two times a day. nitroglycerin sublingual (NITROSTAT) 0.4 mg SL tablet Dissolve 1 tablet under the tongue every 5 minutes as needed. atorvastatin (LIPITOR) 40 mg tablet Take 1 tablet by mouth once daily. acetaminophen 325 mg cap Take 650 mg by mouth every 8 hours as needed. oxyCODONE IR (ROXICODONE) 5 mg immediate release tablet Take 5 mg by mouth four times a day as needed. guaiFENesin (MUCINEX) 600 mg 12 hr tablet Take 1,200 mg by mouth two times a day. DULoxetine (CYMBALTA) 30 mg capsule Take 30 mg by mouth once daily. ondansetron (ZOFRAN) 4 mg tablet 1 tablet as needed. aspirin, enteric coated (ASPIRIN, ENTERIC COATED) 81 mg EC tablet Take 81 mg by mouth once daily. albuterol HFA (PROAIR HFA) 90 mcg/actuation inhaler Inhale 2 Puffs as instructed every 4 hours as needed for Wheezing/Shortness of Breath. No current facility-administered medications on file prior to visit. Social History Social History Tobacco Use Smoking status: Former Packs/day: 2.00 Years: 40.00 Additional pack years: 0.00 Total pack years: 80.00 Types: Cigarettes Start date: 11/08/1962 Quit date: 05/13/2002 Years since quittin.1 Smokeless tobacco: Never Vaping Use Vaping Use: Never used Substance Use Topics Alcohol use: Not Currently Alcohol/week: 3.0 standard drinks of alcohol Types: 3 Cans of beer per week Comment: light beer Drug use: No EXAM: BP 100/68 Pulse 76 Resp 20 Wt 82.6 kg (182 lb) SpO2 100% BMI 25.38 kg/m General Appearance: Well appearing, alert, in no acute distress, well-hydrated, well nourished.. Lungs: Lungs clear to auscultation. No wheezing, rhonchi, rales.. Heart: RRR without murmur, gallop, or rubs. No ectopy. Health Maintenance List Urine Albumin:Creatinine Ratio Never done Dilated Retinal Exam Never done Diabetic Foot Exam Never done BP Controlled (<130/80) Never done DTaP,Tdap,Td Vaccine(1 - Tdap) Never done Shingrix Vaccine(1 of 2) Never done HbA1C due on 12/24/2022 Advance Directive Discussion due on 03/02/2023 Behavioral Health Screening Never done Annual PCP Team Chronic Disease Visit due on 03/23/2024 LDL Cholesterol due on 04/02/2024 Spirometry Completed Influenza Vaccine Completed RSV Vaccine Completed Covid-19 Vaccine Completed Pneumococcal Vaccine: 65+ Completed HPV Vaccine Aged Out Colorectal Cancer Screening Discontinued Data reviewed None ASSESSMENT/PLAN: 1. Anxiety - ICD9: 300.00, ICD10: F41.9 (primary diagnosis) Stable Continue current medications. 2. Moderate recurrent major depression (HCC) - ICD9: 296.32, ICD10: F33.1 Stable Continue current medications. 3. Hyperlipidemia, mixed - ICD9: 272.2, ICD10: E78.2 - Controlled - Continue current medications - Counseled on healthy diet and regular exercise - Discussed need for and benefit of weight loss. BMI 25.38 kg/(m^2) - Continue with Cardio 4. Essential hypertension - ICD9: 401.9, ICD10: I10 - Controlled - Continue current medications - Recommend home blood pressure monitoring, to bring results to next visit - Encouraged sodium restriction, DASH or Mediterranean diet - Recommend regular aerobic exercise - Discussed need for and benefit of weight loss. BMI 25.38 kg/(m^2) - Continue with Cardio 5. Coronary artery disease involving [place] coronary artery of [place] heart without angina pectoris- ICD9: 414.01, ICD10: I25.10 Continue current medications. Continue with Cardio 6. PAD (peripheral artery disease) (HCC) - ICD9: 443.9, ICD10: I73.9 Continue current medications. Continue with Vascular 7. Chronic obstructive pulmonary disease with acute exacerbation (HCC) - ICD9: 491.21, ICD10: J44.1 Continue current medications. Continue with Pulm 8. Squamous carcinoma of lung, left (HCC) - ICD9: 162.9, ICD10: C34.92 Continue current medications. Continue with Dr. Meraz hem/onc and Dr. Calvillo Pulm 9. Prostate cancer (HCC) - ICD9: 185, ICD10: C61 Continue current medications. Continue with Dr. Meraz Follow up in 3 months. I agree with the Chief Complaint, ROS, and Past Histories independently gathered by the clinical product support technician and the remaining scribed note accurately describes my personal service to the patient. Medical Decision Making: Problems: Moderate: 2+ stable chronic illnesses Risk: Moderate: Drug management Medical Decision Making Level: 4 - Moderate Mei Cummins MD The documentation for this note was completed by Malu Tavares MA acting as scribe for Mei Cummins MD. June 22, 2023 1:05 PM. Malu Tavares MA documented in this encounterPromedica [facility]04-19-2024 Miscellaneous Notes* Telephone Encounter - Vianey Johnson - 06/19/2023 1:24 PM EDT Called patient and scheduled CT. Vianey Araujo * Telephone Encounter - Naty Villarreal - 06/19/2023 9:20 AM EDT Please pend & sign CT Chest for scheduling purposes. Naty Villarreal * Telephone Encounter - Donna Bell LPN - 06/19/2023 8:54 AM EDT Pt notified and voices understanding. Will send message to [employer] for his reference. Please reach out to pt to schedule. Donna Bell LPN * Telephone Encounter - Salazar Meraz DO - 06/19/2023 8:30 AM EDT Can let him know the biopsy was negative. That is good news, but we do not know for sure if there may be cancer and it was missed by the biopsy. Nonetheless when he had the most recent CT scan in April, there was not very much change when compared to the the PET scan on 03/03/[address] of the chest on 02/11/2023 other than more fluid and nodularity in that cavity of the left chest. So, I think the best thing for him at this point is for us to simply monitor by repeating the CT scan toward the end of June/beginning of July and go from there. Please pend CT chest with contrast. Salazar Meraz DO documented in this encounterPromedica [facility]04-12-2024 Miscellaneous Notes* Telephone Encounter - Radha Pearson LPN - 06/12/2023 9:49 AM EDT From OV note 05/18/2023: Plan: -Continue apixaban 5 mg BID. -Okay to hold 2 days prior to biopsy. Patient's notified. Radha Pearson LPN * Telephone Encounter - Alethea Dumont - 06/12/2023 9:46 AM EDT Patient is scheduled for biopsy next week. Spouse is asking when patient should stop taking eliquis. Please advise. documented in this encounterPromedica [facility] Hospital04-10-2024 Miscellaneous Notes* Telephone Encounter - Radha Pearson LPN - 06/10/2023 9:06 AM EDT Patient is scheduled for 06/17/2023. Radha Pearson LPN * Telephone Encounter - Annabella Chiang LPN - 06/08/2023 4:43 PM EDT Spoke with pts. , informed Dr. Meraz reached out to Dr. Levy's office once again , and his staff should be contacting her to get Biopsy scheduled. Annabella Chiang LPN * Telephone Encounter - Salazar Meraz DO - 06/08/2023 4:32 PM EDT I left a voicemail last week. Called him again today. He is going to have his staff contact the patient to schedule biopsy. Salazar Meraz DO * Telephone Encounter - Radha Pearson LPN - 06/08/2023 11:[address] Meraz- have you spoken with Dr. Cortez? [phone]. Patient's stopped at my desk to ask because the patient has not yet been scheduled for the biopsy. Radha Pearson LPN * Telephone Encounter - Naty Villarreal - 05/27/2023 11:13 AM EDT Images from the original note were not included. Secure Chat started with IR Schedulers Dr. Meraz - please contact Dr. Cortez re: this patient upon your return. Naty Villarreal * Telephone Encounter - Donna Bell LPN - 05/26/2023 4:13 PM EDT Pt notified. Aware will be scheduled at [facility]. Please assist with scheduling. Donna Bell LPN * Telephone Encounter - Salazar Meraz DO - 05/26/2023 2:15 PM EDT Can let him know the CT scan showed stable findings when compared to previous couple months ago. That is good but would still like to pursue biopsy. Order filed. Can be done at [facility]. Okay to hold apixaban 2 full days prior to the biopsy. Salazar Meraz DO documented in this encounterPromedica Memorial Hospital04-08-2024 Instructions* Patient Instructions* Bela Manzano MD - 06/08/2023 11:39 AM EDT We are adding Ezetimibi (Zetia) 10 mg once per day Repeat fasting blood work in September documented in this encounterPromedica Memorial Hospital04-08-2024 History of Present illness Narrative* Bela Manzano MD - 06/08/2023 11:20 AM EDT Images from the original note were not included. [facility] Cardiology ([facility]) [address] [facility] [id number] OUTPATIENT VISIT DATE 06/08/2023 PRIMARY CARE PHYSICIAN: Mei Cummins [address] [place] [address] HISTORY OF PRESENT ILLNESS: Mr. Corely is a 82 year old gentleman with coronary artery disease and remote coronary bypass grafting, hypertension, dyslipidemia, COPD, with a history of squamous cell carcinoma status post thoracotomy with left lower lobe lung wedge resection and radiation therapy, and peripheral arterial disease with right femoral artery endarterectomy and iliac stent placement in April 2022 who presents for routine follow-up. He was admitted to [facility] in March and diagnosed with DVT and pulmonary embolus. He did note worsening shortness of breath over the past few months which is slowly improving. He has not had symptoms concerning for CHF including PND, orthopnea, or lower extremity edema. He denies palpitations, lightheadedness, dizziness, or syncope. PAST MEDICAL HISTORY Diagnosis Date Abdominal aortic aneurysm (AAA) without rupture (HCC) 11/19/2018 Atypical chest pain CAD (coronary artery disease) s/p CABG 1999, PCI w/ stents Chronic respiratory failure (HCC) COPD (chronic obstructive pulmonary disease) (HCC) Hyperlipidemia Hyperlipidemia Hypertension Lung cancer (HCC) Prostate cancer (HCC) Dx Dec 2014, s/p radiation, on hormonal therapy Ulcer of right foot (HCC) 04/30/2022 PAST SURGICAL HISTORY Procedure Laterality Date ANGIOGRAM EXTREMITY LUNG BIOPSY Left needle biopsy LUNG SURGERY HX 02/20/20 lt lung nodule removed PAST SURGICAL HISTORY OF TURP PAST SURGICAL HISTORY OF 03/02/1999 triple bypass PAST SURGICAL HISTORY OF Left 09/04/2022 Skin biopsy left upper cheek face PAST SURGICAL HISTORY OF LE vascular SOCIAL HISTORY Social History Tobacco Use Smoking status: Former Packs/day: 2.00 Years: 40.00 Additional pack years: 0.00 Total pack years: 80.00 Types: Cigarettes Start date: 11/08/1962 Quit date: 05/13/2002 Years since quittin.0 Smokeless tobacco: Never Vaping Use Vaping Use: Never used Substance Use Topics Alcohol use: Not Currently Alcohol/week: 3.0 standard drinks of alcohol Types: 3 Cans of beer per week Comment: light beer Drug use: No FAMILY HISTORY Problem Relation Age of Onset Cancer Mother 49 breast, bone Diabetes Father Heart Father Cancer Sister breast Emphysema Sister Smoker Diabetes Brother Heart Brother other (Other) Brother Parkinsons Diabetes Paternal Grandmother Heart Paternal Grandmother ALLERGIES: ALLERGIES Allergen Reactions Imdur [Isosorbide M* Hives Black out and dizziness MEDICATIONS: SPIRIVA RESPIMAT 2.5 mcg/actuation inhaler Inhale 2 Puffs as instructed once daily. LORazepam (ATIVAN) 1 mg tablet Take 1 tablet by mouth three times a day for 90 days. iv contrast (will be provided with radiology test) CT Chest W -Inject, intravenously, once for 1 dose.No IV access, insert saline lock prior to the beginning of sedation, infusion, injection of imaging exam. Discontinue saline lock post exam. If Pt. has a central line or IVAD, may access for administration according to line specific nursing protocol. Once exam is complete flush line and de-accessaccording to line specific nursing protocol in the CT contrast administration guidelines link. apixaban (ELIQUIS) 5 mg tab(s) Take 1 tablet by mouth two times a day. ADVAIR HFA 230-21 mcg/actuation inhaler Inhale 2 Puffs as instructed two times a day. nitroglycerin sublingual (NITROSTAT) 0.4 mg SL tablet Dissolve 1 tablet under the tongue every 5 minutes as needed. atorvastatin (LIPITOR) 40 mg tablet Take 1 tablet by mouth once daily. acetaminophen 325 mg cap Take 650 mg by mouth every 8 hours as needed. oxyCODONE IR (ROXICODONE) 5 mg immediate release tablet Take 5 mg by mouth four times a day as needed. guaiFENesin (MUCINEX) 600 mg 12 hr tablet Take 1,200 mg by mouth two times a day. DULoxetine (CYMBALTA) 30 mg capsule Take 30 mg by mouth once daily. ondansetron (ZOFRAN) 4 mg tablet 1 tablet as needed. aspirin, enteric coated (ASPIRIN, ENTERIC COATED) 81 mg EC tablet Take 81 mg by mouth once daily. albuterol HFA (PROAIR HFA) 90 mcg/actuation inhaler Inhale 2 Puffs as instructed every 4 hours as needed for Wheezing/Shortness of Breath. REVIEW OF SYSTEMS: Review of Systems Constitutional: Positive for malaise/fatigue. Negative for chills, fever and weight loss. HENT: Negative for hearing loss and sore throat. Eyes: Negative for blurred vision and double vision. Respiratory: Positive for shortness of breath. Cardiovascular: Negative. Gastrointestinal: Negative. Genitourinary: Negative for dysuria, frequency, hematuria and urgency. Musculoskeletal: Positive for back pain, joint pain and myalgias. Skin: Negative. Neurological: Negative for dizziness, seizures, loss of consciousness, weakness and headaches. Endo/Heme/Allergies: Negative for environmental allergies. Does not bruise/bleed easily. Psychiatric/Behavioral: Negative for depression. PHYSICAL EXAMINATION: BP 135/82 Pulse 86 Wt 178 lb (80.7kg) SpO2 98[on 4L O2 pulse]% General: Pleasant gentleman sitting appears comfortable no apparent distress alert and oriented x3 HEENT: Carotid upstrokes are brisk bilaterally without bruits. No JVD appreciated. Pulmonary: Diminished breath sounds noted throughout. No rales, wheezes, rhonchi Cardiovascular: Normal S1, S2 with a regularly irregular pulse and normal rate.. No murmurs, rubs, or gallops Extremities: Warm, well-perfused, no lower extremity edema. 2+ radial pulses CARDIOVASCULAR MEDICINE TESTING: ECG in the office 09/29/2022: Normal sinus rhythm with frequent PVCs. Nonspecific ST-T wave changes ECG in the office April 29, 2021: Normal sinus rhythm with frequent PVCs. Possible left atrial enlargement. CORONARY ANGIOGRAPHY 03/14/15 LM: 10-20% ostial stenosis proximal to the stent which is widely patent and extends into the LAD. LAD: Moderate sized vessel which gives a small first diagonal branch and larger second diagonal branch. There is diffuse 10-20% stenosis in the proximal vessel. The distal vessel is of smaller caliper but has no significant stenosis. The first diagonal branch has mild narrowing at its ostium but is a tiny vessel. The larger second diagonal branch is normal. LCX: Non-dominant vessel which gives a tiny first marginal branch and large second bifurcating marginal branch. There is 70-80% diffuse stenosis in the proximal vessel and a second 60-70% stenosis atthe bifurction on the OM2. The OM2 fills competitively from the [place] LCX and the SVG. RCA: Dominant vessel which is stented from the proximal-distal portion. There is 20-30% diffuse ISRwith 50-60% ISR in the mid vessel. The LAD has mild diffuse stenoses with a diiscreet 30-40% lesiondistally. SVG-OM: Patent with 40-50% stenosis in an area of some mild toruosity. FFR was performed of the mid RCA lesion and was 0.87. ASSESSMENT Severe single vessel coronary artery disease of the left circumflex artery with a patent bypass graft to the OM. Moderate right coronary artery disease which was not hemodynamically significant by FFR. Regadenoson Myoview Stress 04/24/2022 CONCLUSIONS: 1. SPECT Perfusion Study: Abnormal. 2. There is mild (<10%) ischemia in the territory of the RCA. 3. There is a small (<10%) fixed perfusion defect in the RCA territory. 4. Left ventricle is normal in size. The left ventricle systolic function is mildly decreased. 5. Right ventricle is normal in size. The right ventricle systolic function is normal. 6. This is an intermediate risk scan due to area of scar/ischemia. Gated Stress IR:3D LVEF % 50 Echocardiogram [facility] 03/25/2023: Normal LV size. Estimated ejection fraction 60% no evidence of diastolic dysfunction Trileaflet aortic valve with aortic valve sclerosis and no significant stenosis Echocardiogram 04/24/2022: - Technically difficult exam due to body habitus. - Exam indication: Hypertension - The left ventricle is normal in size. There is moderate left ventricular hypertrophy. Left ventricular systolic function is normal. EF = 56 5% (2D biplane) Definity contrast used for endocardial border detection. Grade I left ventricular diastolic dysfunction. - The right ventricle is normal in size. Right ventricular systolic function is normal. - The visualized aorta is borderline dilated with a maximal dimension of 3.9 cm. - Mild 1+ mitral regurgitation. - Mild to moderate (1-2+) aortic regurgitation. - Estimated right ventricular systolic pressure is 33 mmHg consistent with normal pulmonary artery pressures. Estimated right atrial pressure is 8 mmHg based on IVC assessment. - Exam was compared with the prior echocardiographic exam performed on 09/23/10. The mitral regurgitation and the aortic regurgitation have increased. PVR 06/18/2022: IMPRESSION Compared to prior study of 12/25/2021, Right waveform tracings and doppler signals have improved. RIGHT SIDE Resting right ankle brachial index: 1.85 Non-compressible arteries, TRAE not accurate. Right toe brachial index: 0.44 Non-compressible vessels, results called by PVR tracings. Abnormal toe brachial index at rest is evidence of peripheral artery disease. Right ankle: Moderate disease at rest. LEFT SIDE Resting left ankle brachial index: 1.85 Non-compressible arteries, TRAE not accurate. Left toe brachial index: 0.45 Non-compressible vessels, results called by PVR tracings. Abnormal toe brachial index at rest is evidence of peripheral artery disease. Left ankle: Moderate disease at rest. PVR 12/18/2020: IMPRESSION Compared to prior study of 12/16/2019, appears no significant change in waveforms at ankle. Non compressible arteries. RIGHT SIDE Resting right ankle brachial index: 1.93 Non-compressible arteries, TRAE not accurate. Right toe brachial index: 0.60 Non-compressible vessels, results called by PVR tracings. Abnormal toe brachial index at rest is evidence of peripheral artery disease. Right ankle: Moderate disease at rest. LEFT SIDE Resting left ankle brachial index: 1.93 Non-compressible arteries, TRAE not accurate. Left toe brachial index: 0.61 Non-compressible vessels, results called by PVR tracings. Abnormal toe brachial index at rest is evidence of peripheral artery disease. Left ankle: Moderate disease at rest. PVR 12/16/19: IMPRESSION RIGHT SIDE Resting right ankle brachial index: 1.21 Partially non-compressible arteries, TRAE not accurate. Right toe brachial index: 0.43 Non-compressible vessels, results called by PVR tracings. Abnormal toe brachial index at rest is evidence of peripheral artery disease. Right ankle: Moderate disease at rest. Aortic or bilateral iliofemoral disease. LEFT SIDE Resting left ankle brachial index: 2.20 Non-compressible arteries, TRAE not accurate. Left toe brachial index: 0.60 Non-compressible vessels, results called by PVR tracings. Abnormal toe brachial index at rest is evidence of peripheral artery disease. Left ankle: Moderate disease at rest. Aortic or bilateral iliofemoral disease. ECG in the office 10/15/2020: Sinus rhythm with occasional PVCs. Normal axis and intervals. No significant ST or T wave changes IMPRESSION: Mr. Corley is a 82 year old gentleman with known coronary artery disease prior coronary bypass grafting in 1999, COLEMAN-LAD, FRANCIA-RCA, SVG-left circumflex/OM). Cardiac catheterization 2012 at which time he was found to have occlusion of the COLMEAN and FRANCIA grafts. He underwent stenting of the left maincoronary artery. Most recent cardiac catheterization 2015 as noted above. He is also treated for hypertension, dyslipidemia, and COPD. He has a history of small cell lung cancer and is status post left lower lobe wedge resection and radiation therapy. He has a history of peripheral arterial diseaseand underwent right femoral artery endarterectomy with right iliac stent placement April 2022. He has a history of DVT and PE March 2023, hypertension, and dyslipidemia. He presents the office for routine follow-up. PLAN AND RECOMMENDATIONS:\ 1. Coronary artery disease involving [place] coronary artery of [place] heart without angina pectoris- ICD9: 414.01, ICD10: I25.10 (primary diagnosis) Patient doing well without symptoms concerning for angina. Continue current medical therapy and risk occasion 2. Essential hypertension - ICD9: 401.9, ICD10: I10 Well-controlled on current regimen. 3. Hyperlipidemia, mixed - ICD9: 272.2, ICD10: E78.2 Maintained on atorvastatin 40 mg daily. Fasting blood work from April 2023 was reviewed. LDL cholesterol 99 mg/dL. Will add Zetia 10 mg daily and repeat fasting blood work in 3 to 4 months - EZETIMIBE 10 MG TABLET - LIPID PANEL BASIC - ALT/SGPT - AST/SGOT BLD 4. Peripheral arterial disease (HCC) - ICD9: 443.9, ICD10: I73.9 Bela Manzano MD documented in this encounterPromedica Memorial Hospital04-03-2024 Miscellaneous Notes* Telephone Encounter - Jamshid Brown APRN.CNP - 06/03/2023 11:45 AM EDT The following approved medication requests have been transmitted electronically. Requested Prescriptions Pending Prescriptions Disp Refills SPIRIVA RESPIMAT 2.5 mcg/actuation inhaler 1 Each 5 Sig: Inhale 2 Puffs as instructed once daily. Jamshid Brown APRN.CNP * Telephone Encounter - Erica Hunt LPN - 06/03/2023 10:55 AM EDT [facility] M-03/23/23 Labs-05/21/23Dec-06/22/23 Erica Hunt LPN documented in this encounterPromedica Memorial Hospital03-25-2024 Miscellaneous Notes* Telephone Encounter - Mei Cummins MD - 05/25/2023 1:30 PM EDT OK to refill as ordered Mei Cummins MD * Telephone Encounter - Erica Hunt LPN - 05/25/2023 10:23 AM EDT [facility]-03/23/23 Labs-05/21/23Dec-03/23/23 Erica Hunt LPN documented in this encounterPromedica Memorial Hospital03-21-2024 History of Present illness Narrative* Summer Grant, RT(R) - 05/21/2023 1:00 PM EDT Radiology Service Progress Note DATE OF SERVICE: May 21, 2023 TIME: 1:50 PM PATIENT IDENTITY VERIFICATION COMPLETED USING TWO (2) STANDARD IDENTIFIERS: Name and Date of confirmed by patient verbally. FALL SCREENING: Has the patient had 2 falls in the last year or 1 fall with injury or currently using an Ambulatory Assistive Device (Walker, Cane, Wheelchair, Crutches, etc.)? No PATIENT GENDER DATA: Male PATIENT RELEVANT IMPLANT DATA REVIEWED: Yes PATIENT PRESENTS WITH AN IMPLANTABLE OR ATTACHED TOWER HELPER: No ALLERGIES: Reviewed and unchanged CONTRAST ALLERGY: NO. EXAM: CT -CONTRAST INDUCED NEPHROPATHY RISK FACTORS: Patient age > 60 years CREATININE: Creatinine Date Value Ref Range Status 05/21/2023 0.90 0.73 - 1.22 mg/dL Final 04/02/2023 0.87 0.73 - 1.22 mg/dL Final 03/12/2023 0.85 0.73 - 1.22 mg/dL Final Estimated Glomerular Filtration Rate Date Value Ref Range Status 05/21/2023 86 >=60 mL/min/1.73m Final Comment: Estimated Glomerular Filtration Rate (eGFR) is calculated using the 2020 CKD-EPI creatinine equation. This equation utilizes serum creatinine, sex, and age as parameters. The creatinine assay has traceable calibration to isotope dilution- mass spectrometry. Refer to KDIGO guidelines for clinical interpretation. In patients with unstable renal function, e.g. those with acute kidney injury, the eGFRmay not accurately reflect actual GFR. eGFR- Date Value Ref Range Status 04/23/2021 >60 Final P.O.C.T. RESULTS: POC done: Yes, See Lab Tab May 21, 2023 TREATMENT: N/A PERIPHERAL IV DATA: Ambulatory: A peripheral IV was started in the Left antecubital site with a Angio cath: 22 gauge. RADIOLOGY DEPARTMENT: CT; Exam(s) Completed: Chest SIGNATURE: RT Joey(R) PATIENT NAME: Oswaldo Corley DATE: May 21, 2023 TIME: 1:50 PM Radiology Service Progress Note DATE OF SERVICE: May 21, 2023 TIME: 1:50 PM PATIENT IDENTITY VERIFICATION COMPLETED USING TWO (2) STANDARD IDENTIFIERS: Name and Date of confirmed by patient verbally. FALL SCREENING: Has the patient had 2 falls in the last year or 1 fall with injury or currently using an Ambulatory Assistive Device (Walker, Cane, Wheelchair, Crutches, etc.)? No PATIENT GENDER DATA: Male PATIENT RELEVANT IMPLANT DATA REVIEWED: Yes PATIENT PRESENTS WITH AN IMPLANTABLE OR ATTACHED TOWER HELPER: No ALLERGIES: Reviewed and unchanged CONTRAST ALLERGY: NO. EXAM: CT -CONTRAST INDUCED NEPHROPATHY RISK FACTORS: Patient age > 60 years CREATININE: Creatinine Date Value Ref Range Status 05/21/2023 0.90 0.73 - 1.22 mg/dL Final 04/02/2023 0.87 0.73 - 1.22 mg/dL Final 03/12/2023 0.85 0.73 - 1.22 mg/dL Final Estimated Glomerular Filtration Rate Date Value Ref Range Status 05/21/2023 86 >=60 mL/min/1.73m Final Comment: Estimated Glomerular Filtration Rate (eGFR) is calculated using the 2020 CKD-EPI creatinine equation. This equation utilizes serum creatinine, sex, and age as parameters. The creatinine assay has traceable calibration to isotope dilution- mass spectrometry. Refer to KDIGO guidelines for clinical interpretation. In patients with unstable renal function, e.g. those with acute kidney injury, the eGFRmay not accurately reflect actual GFR. eGFR- Date Value Ref Range Status 04/23/2021 >60 Final P.O.C.T. RESULTS: POC done: Yes, See Lab Tab May 21, 2023 TREATMENT: N/A PERIPHERAL IV DATA: Ambulatory: A peripheral IV was started in the Left antecubital site with a Angio cath: 22 gauge. RADIOLOGY DEPARTMENT: CT; Exam(s) Completed: Chest SIGNATURE: RT Joey(R) PATIENT NAME: Oswaldo Corley DATE: May 21, 2023 TIME: 1:50 PM documented in this encounterPromedica Memorial Hospital03-19-2024 Miscellaneous Notes* Telephone Encounter - Alethea Dumont - 05/19/2023 9:07 AM EDT Scheduled with spouse * Telephone Encounter - Naty Villarreal - 05/18/2023 4:31 PM EDT Check out comments: Creatinine(S)/CT chest when able. Please scheduled in the afternoon with the patient/patient's once orders are signed. 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 HPI: The patient is an 82-year-old male with a past medical history significant for hyperlipidemia,hypertension, AAA, coronary artery disease (CABG x3 vessels), COPD and prostate cancer. Patient underwent a CT scan of the abdomen which incidentally revealed the presence of the left lower lobe lung nodule which was not previously observed on a CT chest from 2017. He therefore underwent a CT of the chest on 01/17/2020. That study demonstrated stable appearing scarring in the right lower lobe unchanged from previous study in 2013. There was scarring and nodularity left upper lobe aswell as a focal mass in the left lower lobe measuring 1.4 x 1.1 x 1.0 cm. He underwent a CT-guided biopsy on 01/27/2020. Tissue was nondiagnostic and the patient developed apneumothorax. He was transferred to [facility] [place]. PET scan 02/17/2020 done at [facility] demonstrated a 1.2 cm spiculated nodule in the periphery of the left lower lobe with intense FDG uptake. There was a small to moderate sized loculated pleural effusion along the lateral aspect of the left hemithorax. There was also moderately intense focal FDG accumulation along the posterior periphery of the prostate intensity uptake was suspicious for malignancy. There is a 3.4 cm infrarenal abdominal aortic aneurysm. Uderwent a left thoracoscopy with conversion to mini thoracotomy, evacuation of pleural effusion along with wedge resection of the left lower lobe lung mass including frozen section on 02/20/2020. Pathology: Moderately differentiated squamous cell carcinoma extending to the inked parenchymal margin. Pleural biopsy demonstrated fibrous tissue with hemorrhage and background blood clot. Synoptic report reviewed in care everywhere. Briefly overall tumor size was 1.1 x 0.9 x 0 point centimeter. It was a single focus of disease. No invasion to adjacent structures. Lymphovascular invasion was not identified bronchial and vascular margins were not applicable and the parenchymal margin was positive for invasive carcinoma. No lymph nodes observed in the specimen. Completed RT to the left lower lung on 05/21/2020. He was hospitalized on July 09 for pneumonia/exacerbation of COPD. Couple days prior to that he had sudden worsening of his chronic dyspnea. He underwent repeat CT chest on 08/10/2020. The study demonstrated tree-in-bud formation concerning for multifocal pneumonia in the right lung with a left apical pulmonary nodule with internal cavitation. Underwent bronchoscopy on 08/14. Lavage was performed. Cultures grew MSSA and Streptococcus mitis. He was treated with antimicrobials due to decompensated respiratory status and manage with prednisone as well. He had improvement in symptoms. Admitted to [facility] on 03/25/2023 for hemoptysis. He underwent a repeat CTA of the chest. When compared to the study done 10/2022 pulmonary emboli were observed in the second branch of the of the left lower lobe pulmonary artery. There was a pleural-based cavitary lesion in the left lower lobe increased in size since previous exam concerning for malignancy corresponding to the PET/CT abnormality. Spiculated lesions in the left lung were concerning for malignancy. Scattered ill-defined densities and some of them were new since previous exam. Duplex ultrasound legs demonstrated acute DVT in the right and left posterior tibial veins. He was monitored until 03/27. Hemoptysis resolved. He was started on apixaban. He had been on aspirin and Plavix and was advised to discontinue both at discharge. Presents for ongoing oncologic management. Interim history: No further blood tinged sputum. Dyspnea stable. Pain managed with oxycodone and Tylenol. Oxycodone mainly to help breathing. Good appetite. No bleeding issues. PMH, medications and allergies personally reviewed by me today. Any changes documented in appropriate section. PHYSICAL EXAM: Vitals: Blood pressure 156/88, pulse 84, temperature 36.2 C (97.2 F), temperature source Temporal, weight 80.7 kg (178 lb), SpO2 96%. Well-appearing and in no acute distress. EYES: Sclerae are anicteric bilaterally. LYMPHATIC: There is no palpable cervical or supraclavicular adenopathy. RESPIRATORY: Inspiratory breath sounds are of very diminished intensity in all [place]. CARDIOVASCULAR: Rhythm is regular. ABDOMEN: The abdomen is nondistended. Extremities: No swelling or edema. SKIN: No jaundice or rash. No petechiae. MS: There is a palpable defect in the left rib in the posterior axillary line. Not tender. ASSESSMENT/PLAN: (C33, C34.80) Cancer of trachea, bronchus, and lung (HCC) (primary encounter diagnosis) Assessment: -The patient is an 82-year-old male with a past medical history significant for advanced/severe COPD and prostate cancer who underwent a wedge resection for diagnostic and therapeutic purposes of a left lower lobe lung nodule. 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 -He received adjuvant radiation. -Recent PET scan concern for local recurrence and also appears to have pleural- based disease medialportion of the left lung in addition to several nodules that are new in the left lung. -Pain had improved somewhat with anticoagulation. -He prefers to have biopsy at [place]. Plan: -Continue apixaban 5 mg BID. -CT chest with contrast. -Once resulted will order imaging guided biopsy at [place]. -OV about 1-2 weeks after biopsy. (C61) Prostate cancer (HCC) Assessment: -EBRT 2016. -Follows with Dr. Catalan. -Most recent PSA 0.22 ng/mL 03/23/2023. Plan: -Continue follow up with Dr. Catalan. 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 -Tolerating anticoagulation well. -Hemoptysis resolved. Plan: -Continue apixaban 5 mg BID. -Okay to hold 2 days prior to biopsy. Portions of this documentation were copied and pasted from previous office visit notes in order to provide a cohesive continuity of the history. The note has been reviewed and edited and updated as necessary. I spent a total of 15 minutes on the date of the service which included preparing to see the patient, [id number] patient care, completing clinical documentation, obtaining and/or reviewing separately obtained history, performing a medically appropriate examination, counseling and educating the pat ient/family/caregiver, ordering medications, tests, or procedures, communicating with other HCPs (not separately reported), and communicating results to the patient/family/caregiver. Salazar Meraz DO documented in this encounterPromedica Memorial Hospital03-12-2024 History of Present illness Narrative* Rosalie Martinez PA-C - 05/12/2023 2:00 PM EDT Images from the original note were not included. Patient: Oswaldo Corley PCP: Mei Cummins MD CC: follow up HPI: Oswadlo Corley 82 year old male former 80 pack year smoker, quitting 2002 with PMH significant for CAD s/p CABG/stents, AAA, DM2, HTN, DM2, prostate cancer s/p radiation and hormonal therapy, squamous cell carcinoma of the lung s/p left thoracoscopy, conversion to mini thoracotomy, evacuation of pleural effusion, wedge resection 01/2020, COPD, GOLD 3, and bronchiectasis. He was most recently seen 04/14/2023 with Tip Mac APRN for a hospital follow up for pulmonary embolism. Patient was admitted to [facility] 03/25 - 03/[address] PE showed LLL PE and he was started on Eliquis. Recent PET scan concerning for local recurrence and also appeared to have pleural-based disease medial portion of the left lung in addition to several new nodules in left lung. Per televisit 04/03/[address] Herrmann, CT surgeon at [facility], I have spoken with Dr. Meraz ([place] oncologist), who agrees that operative treatment is preferred if the suspicious lesions are consistent with malignancy. A CT-guided needle biopsy would be required to determine whether malignancy is present. G iven the recent pulmonary embolism and the need for anticoagulation, we both agree that the best course of action would be to delay sampling for 6 weeks until the lung could heal a bit and the anticoagulation could be temporarily discontinued so as to allow the biopsy and prompt resuming of the anti coagulation upon completion of the sampling. Today, patient reports daily cough/clearing throat. Productive of light green sputum. Patient states this is normal. No hemoptysis. Occasionally will wheeze at nighttime. Exertional dyspnea with minimal effort. Denies chest pain, palpitations, or dizziness. No epistaxis or BRBPR. No lower extremityedema. Currently wearing 3L supplemental oxygen continuously. DME: [employer]. PAST MEDICAL HISTORY Diagnosis Date Abdominal aortic aneurysm (AAA) without rupture (HCC) 11/19/2018 Atypical chest pain CAD (coronary artery disease) s/p CABG 1999, PCI w/ stents Chronic respiratory failure (HCC) COPD (chronic obstructive pulmonary disease) (HCC) Hyperlipidemia Hyperlipidemia Hypertension Lung cancer (HCC) Prostate cancer (HCC) Dx Dec 2014, s/p radiation, on hormonal therapy Ulcer of right foot (HCC) 04/30/2022 Allergies: Imdur [Isosorbide M* Hives Comment:Black out and dizziness apixaban (ELIQUIS) 5 mg tab(s) Take 1 tablet by mouth two times a day. ADVAIR HFA 230-21 mcg/actuation inhaler Inhale 2 Puffs as instructed two times a day. LORazepam (ATIVAN) 1 mg tablet Take 1 tablet by mouth three times a day for 90 days. nitroglycerin sublingual (NITROSTAT) 0.4 mg SL tablet Dissolve 1 tablet under the tongue every 5 minutes as needed. SPIRIVA RESPIMAT 2.5 mcg/actuation inhaler Inhale 2 Puffs as instructed once daily. atorvastatin (LIPITOR) 40 mg tablet Take 1 tablet by mouth once daily. clopidogrel (PLAVIX) 75 mg tablet Take 1 tablet by mouth once daily. (Patient not taking: Reported on 04/14/2023) acetaminophen 325 mg cap Take 650 mg by mouth every 8 hours as needed. oxyCODONE IR (ROXICODONE) 5 mg immediate release tablet Take 5 mg by mouth four times a day as needed. tamsulosin (FLOMAX) 0.4 mg Take 0.4 mg by mouth once daily. guaiFENesin (MUCINEX) 600 mg 12 hr tablet Take 2 tablets by mouth twice daily. (Patient not taking:Reported on 04/14/2023) DULoxetine (CYMBALTA) 30 mg capsule Take 30 mg by mouth once daily. ondansetron (ZOFRAN) 4 mg tablet 1 tablet as needed. (Patient not taking: Reported on 04/14/2023) aspirin, enteric coated (ASPIRIN, ENTERIC COATED) 81 mg EC tablet Take 81 mg by mouth once daily. (Patient not taking: Reported on 04/14/2023) albuterol HFA (PROAIR HFA) 90 mcg/actuation inhaler Inhale 2 Puffs as instructed every 4 hours as needed for Wheezing/Shortness of Breath. Social History Tobacco Use Smoking status: Former Packs/day: 2.00 Years: 40.00 Additional pack years: 0.00 Total pack years: 80.00 Types: Cigarettes Start date: 11/08/1962 Quit date: 05/13/2002 Years since quittin.0 Smokeless tobacco: Never Vaping Use Vaping Use: Never used Substance Use Topics Alcohol use: Not Currently Alcohol/week: 3.0 standard drinks of alcohol Types: 3 Cans of beer per week Comment: light beer Drug use: No Family History Problem Relation Age of Onset Cancer Mother 49 breast, bone Diabetes Father Heart Father Cancer Sister breast Emphysema Sister Smoker Diabetes Brother Heart Brother other (Other) Brother Parkinsons Diabetes Paternal Grandmother Heart Paternal Grandmother PAST SURGICAL HISTORY Procedure Laterality Date ANGIOGRAM EXTREMITY LUNG BIOPSY Left needle biopsy LUNG SURGERY HX 02/20/20 lt lung nodule removed PAST SURGICAL HISTORY OF TURP PAST SURGICAL HISTORY OF 03/02/1999 triple bypass PAST SURGICAL HISTORY OF Left 09/04/2022 Skin biopsy left upper cheek face PAST SURGICAL HISTORY OF LE vascular I reviewed the past medical history, family history, social history and surgical history with changes noted above and updated in EMR. IMMUNIZATIONS Prevnar 13 - 2016 Pneumovax - 2015 Influenza - 2022 COVID-19 - most recent 11/2022 RSV - 2022 ROS: CONSTITUTIONAL: No fevers, chills, nightsweats, unintended weight loss HEENT: Denies nasal congestion/sinus symptoms, allergy problems. EYES: No eye pain, blurry vision. CARDIOVASCULAR: No chest pain, palpitations, orthopnea, PND, edema. PULM: See HPI GI: No dysphagia/odynophagia, problematic reflux NEURO: No new balance problems, peripheral weakness/paresthesias or numbness of concern. MUSC-SKEL: No joint pain, swelling, or erythema. INTEGUMENTARY: No new skin changes or rashes PHYSICAL EXAMINATION: BP 144/72 (BP Site: Right Arm) Pulse 82 Temp 36.7 C (98 F) Resp 22 Ht 180.3 cm (5' 11) Wt 82.6 kg (182 lb) SpO2 98% BMI 25.38 kg/m O2: 3L pulse dosed. Gen: No acute distress. Cooperative with examination. HEENT: Normocephalic. Sclera, conjunctiva clear. Dentures. No thrush. Resp: No stridor, accessory respiratory muscle use, supra-sternal or intercostal retractions. No wheezes, crackles. CV: Regular rythm. Heart tones normal. Radial pulses normal. Ext: Warm and well perfused. No clubbing, cyanosis, edema. Skin: No rash. Ecchymoses on hands and arms from Eliquis. Neuro: Mental status normal. Affect normal. No tremor. DATA: Oximetry, 10/2022 O2 Device O2 Adapter NC O2 Flow SpO2% HR Activity Ft Walked (ft) Time (min) Avg Speed (MPH) NC 3 96 103 Resting NC 3 93 128 Walking, usual pace 360 3 1.36 PFT, 09/2022 Spirometry indicates severe obstruction with no significant bronchodilator response. Diffusing capacity is moderately reduced. CTA chest, 03/25/2023 [facility] PET, 03/03/2023 [facility] ASSESSMENT/PLAN: 1. 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) - ICD9: 496, ICD10: J44.9 (primary diagnosis) Continue triple therapy with Advair and Spiriva. Albuterol HFA inhaler, 2 inhalations 10-15 minutes prior to activities associated with shortness ofbreath, and as needed for rescue relief of shortness of breath or wheezing, up to 4 times daily. 2. Chronic hypoxemic respiratory failure (HCC) - ICD9: 518.83, 799.02, ICD10: J96.11 Patient is compliant and benefits from supplemental oxygen. 3. Other pulmonary embolism without acute cor pulmonale, unspecified chronicity (HCC) - ICD9: 415.19, ICD10: I26.99 On Eliquis. Reviewed echocardiogram from hospitalization and no sign of right heart strain. 4. History of cancer of lower lobe bronchus or lung - ICD9: V10.11, ICD10: Z85.118 Recent PET scan concern for local recurrence and also appears to have pleural- based disease medial portion of the left lung in addition to several nodules that are new in the left lung. Was evaluated by Dr. Herrmann for biopsy 04/03/2023. Plan was to be on eliquis for at least 6 weeks prior to taking him off and proceeding with bx. Patient and have not heard from Dr Herrmann's office yet. They have an appointment with Dr. Meraz next Thursday and will discuss further with him. 5. Hydropneumothorax - ICD9: 511.89, ICD10: J94.8 Stable. Portions of this documentation were copied and pasted from previous office visit notes in order to provide a cohesive continuity of the history. The note has been reviewed and edited and updated as necessary. Rosalie Martinez PA-C documented in this encounterPromedica Memorial Hospital02-22-2024 Miscellaneous Notes* Telephone Encounter - Radha Pearson LPN - 04/23/2023 7:55 AM EST Please see 04/03/[address] Herrmann for plan. Radha Pearson LPN documented in this encounterPromedica Memorial Hospital02-20-2024 Miscellaneous Notes* Telephone Encounter - Radha Pearson LPN - 04/21/2023 8:25 AM EST Please send pended Rx. aRdha Pearson LPN documented in this encounterPromedica Memorial Hospital02-14-2024 Miscellaneous Notes* Telephone Encounter - Rosalinda Hernandez RN - 04/15/2023 10:58 AM EST Patient has been identified by name and date of : Yes Requested Prescriptions Pending Prescriptions Disp Refills ADVAIR HFA 230-21 mcg/actuation inhaler Sig: Inhale 2 Puffs as instructed two times a day. RX INSTRUCTIONS: Patient aware RX will be sent to pharmacy. Please inform patient via My Chart. Patient is almost out of this medication. Confirmed pharmacy with patient's . Rosalinda Hernandez RN [facility] History of Present illness Narrative* Tip Mac APRN.LEGAL STENOGRAPHER - 04/14/2023 12:00 PM EST Images from the original note were not included. [facility] H[facility] FOLLOW-UP OFFICE VISIT 04/14/2023 Patient Name: Oswaldo Corley PRIMARY CARE PHYSICIAN: Mei Cummins MD CHIEF COMPLAINT: Patient presents with: Hospital F/U Subjective HISTORY OF PRESENT ILLNESS: Oswaldo Corley is a 82 year old male who presents today for hospital follow-up. Past medical history is significant for CAD s/p CABG/stents, AAA, DM2, HTN, HLD, DM2, prostate cancer s/p radiation and hormonal therapy, squamous cell carcinoma of the lung, COPD GOLD 3, bronchiectasis. Former 2 PPD smoker for 40 years. Quit 2002. Patient was admitted to [facility] from 03/25 - 03/27/2023 for treatment of PE. Discharge recommendations from Dr. Martin Zaragoza were as follows: Patient is an 82-year-old male who presented to [facility] ED on03/25/2023 with hemoptysis, shortness of breath and dyspnea. 1. Acute left lower lobe PE, off left lower lobe pulmonary artery, unprovoked: CT chest individually reviewed. Patient tachycardic, dyspnea at rest and tachypneic in the morning. Patient has hemoptysis but will continue anticoagulant. IV heparin changed to enoxaparin. Troponin and BNP ordered. 2Dech o is ordered. As patient is still short of breath therefore patient observation status needs to change to inpatient status. 03/27: Troponin and BNP negative. 2D echo reviewed. Normal RV size and systolicfunction. EF 60%. Prescription given for Eliquis, DVT/PE dose, 10 mg for 1 week and then 5 mg twice daily to continue. Inview of lung cancer history I feel patient needs to continue Eliquis throughout the life as this was an unprovoked PE. Patient already on aspirin and Plavix as he has history of CAD with cardiac stent in 2012 and PAD and lower extremity stent on April,. Patient already has hemoptysis which hascontrolled therefore will prefer only 2blood thinners. Therefore hold or discontinue baby aspirin while the patient istaking Eliquis. Continue Eliquis at least for 1 year till May 2023. Prescription also sent for Plavix and Mucinex DM. Follow-up with [facility] supervisory aide Dr. Ji Calvillo. 2. History of lung cancer with suspected recurrence on the recent PET/CT imaging from 03-03-23. Imaging shows progression of defined viable neoplastic disease. Lung cancer was diagnosed in January 2020. Currently follows with Dr. Meraz, further information obtained from his most recent office note from 02/16/2023. Patient was found to have a left lower lobe nodule in January 2020. He had CT- guided biopsy done at that time at [facility] and developed pneumothorax postbiopsy requiring transfer to [facility] for further management. PET scan at [facility] was concerning for malignancy and patient had a left thoracoscopy with conversion tomini thoracotomy with wedge resection of the left lower lobe lung mass in 01/2020. 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 Patient completed radiation therapy to the left lower lung in 04/2020, has had no further therapy since that time. Has outpatient follow-up scheduled with Dr. Lizzy otero; no oncology needs while inpatient, recommend close outpatient follow-up. 3. Leukocytosis mainly inflammatory due to PE ? WBC count 15 on admit, improved to normal range 10.6 thousand.. No infectious symptoms noted, patient afebrile and hemodynamically stable, low concern for infection. No need for antibiotic treatment. 4. Elevated lactic acid, resolved ? Lactate 2.3 on admit, resolved with IV fluids. 5. History of CAD status post stents,, PAD status post stent hyperlipidemia: Asmentioned above ? Continue home Plavix, holding home aspirin with patient on anticoagulation as noted above. Continue home statin. Chronic medical conditions: ? COPD, chronic hypoxic respiratory failure on home 3 L: Currently stable on home 3 L nasal cannulawith good oxygen saturations, no evidence of COPD exacerbation. Continue home inhalers, daily low-dose prednisone and daily Levaquin. ? Anxiety/depression: Continue home duloxetine, Ativan 3 times daily as needed. ? Chronic pain: Continue home low-dose oxycodone as needed. ? BPH with LUTS: Continue home Flomax. Today, since being discharged, the patient reports: Doing better He is in a wheelchair on exam Phlegm is maybe slightly blood tinged still but is becoming more clear or green color Had been bringing up half a cup of bright red blood at time of admission Wears 3L O2 around the clock with benefit He does not have much wheeze Does have shortness of breath maybe a little worse than baseline since a few weeks prior to admission, likely related to clot He reports he had been off of plavix for about 10 days or so prior to admission as he was holding it due to daughter being in town and he did not want to be all bruised up He has questions about whether or not it is okay for plavix and aspirin to be held while on eliquis(he was told to stop them after d/c from [facility]) He does not have any other bleeding currently He is using his inhalers as ordered Takes prednisone 10 mg daily Takes albuterol ~1 time a day with benefit when short of breath His oncologist is in discussion with thoracic surgery at [facility] regarding need for biopsy of new areas on PET and CT concerning for malignancy Patient denies weight loss, fever, chills, night sweats, hemoptysis Compliant with airway regimen of: advair 230-21, spiriva, prednisone 10 mg MMRC Dyspnea Scale: 0. Not troubled by breathlessness except on strenuous exercise Short of breath when hurrying or walking up a slight hill Walks slower than contemporaries on the level because of breathlessness, or has to stop for breath when walking at own pace Stops for breath after about 100 m or after a few minutes on the level Too breathless to leave the house, or breathless when dressing or undressing ECO04/14/2023 2- Ambulatory and capable of all selfcare; unable to carry out work activities. Up and about > 50% of waking hrs. REVIEW OF SYSTEMS Review of Systems Constitutional: Negative for chills, fatigue, fever and unexpected weight change. HENT: Negative for congestion, postnasal drip, rhinorrhea, sinus pressure and sinus pain. Respiratory: Positive for cough and shortness of breath. Negative for chest tightness and wheezing. Cardiovascular: Negative for chest pain and leg swelling. Gastrointestinal: Negative for blood in stool, constipation, diarrhea, nausea and vomiting. Genitourinary: Negative for hematuria. All other systems reviewed and are negative. Objective PAST MEDICAL HISTORY Diagnosis Date Abdominal aortic aneurysm (AAA) without rupture (HCC) 11/19/2018 Atypical chest pain CAD (coronary artery disease) s/p CABG 1999, PCI w/ stents Chronic respiratory failure (HCC) COPD (chronic obstructive pulmonary disease) (HCC) Hyperlipidemia Hyperlipidemia Hypertension Lung cancer (HCC) Prostate cancer (HCC) Dx Dec 2014, s/p radiation, on hormonal therapy Ulcer of right foot (HCC) 04/30/2022 PAST SURGICAL HISTORY Procedure Laterality Date ANGIOGRAM EXTREMITY LUNG BIOPSY Left needle biopsy LUNG SURGERY HX 02/20/20 lt lung nodule removed PAST SURGICAL HISTORY OF TURP PAST SURGICAL HISTORY OF 03/02/1999 triple bypass PAST SURGICAL HISTORY OF Left 09/04/2022 Skin biopsy left upper cheek face PAST SURGICAL HISTORY OF LE vascular FAMILY HISTORY Problem Relation Age of Onset Cancer Mother 49 breast, bone Diabetes Father Heart Father Cancer Sister breast Emphysema Sister Smoker Diabetes Brother Heart Brother other (Other) Brother Parkinsons Diabetes Paternal Grandmother Heart Paternal Grandmother Social History Tobacco Use Smoking status: Former Packs/day: 2.00 Years: 40.00 Additional pack years: 0.00 Total pack years: 80.00 Types: Cigarettes Start date: [birth year]/08/1962 Quit date: 05/13/2002 Years since quittin.9 Smokeless tobacco: Never Vaping Use Vaping Use: Never used Substance Use Topics Alcohol use: Not Currently Alcohol/week: 3.0 standard drinks of alcohol Types: 3 Cans of beer per week Comment: light beer Drug use: No ALLERGIES ALLERGIES Allergen Reactions Imdur [Isosorbide M* Hives Black out and dizziness CURRENT OUTPATIENT MEDICATIONS apixaban (ELIQUIS) 5 mg tab(s) Take 5 mg by mouth two times a day. LORazepam (ATIVAN) 1 mg tablet Take 1 tablet by mouth three times a day for 90 days. SPIRIVA RESPIMAT 2.5 mcg/actuation inhaler Inhale 2 Puffs as instructed once daily. predniSONE (DELTASONE) 10 mg tablet Take 1 tablet by mouth once daily. atorvastatin (LIPITOR) 40 mg tablet Take 1 tablet by mouth once daily. ADVAIR HFA 230-21 mcg/actuation inhaler Inhale 2 Puffs as instructed twice daily. acetaminophen 325 mg cap Take 650 mg by mouth every 8 hours as needed. oxyCODONE IR (ROXICODONE) 5 mg immediate release tablet Take 5 mg by mouth four times a day as needed. tamsulosin (FLOMAX) 0.4 mg Take 0.4 mg by mouth once daily. DULoxetine (CYMBALTA) 30 mg capsule Take 30 mg by mouth once daily. albuterol HFA (PROAIR HFA) 90 mcg/actuation inhaler Inhale 2 Puffs as instructed every 4 hours as needed for Wheezing/Shortness of Breath. nitroglycerin sublingual (NITROSTAT) 0.4 mg SL tablet Dissolve 1 tablet under the tongue every 5 minutes as needed. clopidogrel (PLAVIX) 75 mg tablet Take 1 tablet by mouth once daily. (Patient not taking: Reported on 04/14/2023) guaiFENesin (MUCINEX) 600 mg 12 hr tablet Take 2 tablets by mouth twice daily. (Patient not taking:Reported on 04/14/2023) ondansetron (ZOFRAN) 4 mg tablet 1 tablet as needed. (Patient not taking: Reported on 04/14/2023) aspirin, enteric coated (ASPIRIN, ENTERIC COATED) 81 mg EC tablet Take 81 mg by mouth once daily. (Patient not taking: Reported on 04/14/2023) PHYSICAL EXAMINATION: Physical Exam Vitals and nursing note reviewed. Constitutional: General: He is not in acute distress. Appearance: Normal appearance. He is normal weight. Cardiovascular: Rate and Rhythm: Normal rate and regular rhythm. Heart sounds: No murmur heard. Pulmonary: Effort: Pulmonary effort is normal. No respiratory distress. Breath sounds: Decreased breath sounds present. No wheezing or rales. Musculoskeletal: Right lower leg: No edema. Left lower leg: No edema. Neurological: General: No focal deficit present. Mental Status: He is alert. Mental status is at baseline. Psychiatric: Mood and Affect: Mood normal. Behavior: Behavior normal. BP 117/76 Pulse 92 SpO2 97% DATA: Diagnostic tests reviewed for today's visit, including films and specimens, were personally reviewed by me Glucose (mg/dL) Date Value 04/02/2023 131 04/23/2021 109 Potassium (mmol/L) Date Value 04/02/2023 3.7 04/23/2021 3.8 Sodium (mmol/L) Date Value 04/02/2023 139 04/23/2021 139 Chloride (mmol/L) Date Value 04/02/2023 101 04/23/2021 104 CO2 (mmol/L) Date Value 04/02/2023 27 04/23/2021 26 Creatinine (mg/dL) Date Value 04/02/2023 0.87 04/23/2021 1.03 BUN (mg/dL) Date Value 04/02/2023 19 04/23/2021 21 Anion Gap (mmol/L) Date Value 04/02/2023 11 04/23/2021 9 Calcium (mg/dL) Date Value 04/23/2021 8.6 Calcium, Total (mg/dL) Date Value 04/02/2023 9.5 Protein, Total (g/dL) Date Value 04/02/2023 6.9 04/23/2021 6.1 Albumin (g/dL) Date Value 04/02/2023 4.1 04/23/2021 3.9 Bilirubin, Total (mg/dL) Date Value 04/02/2023 0.6 04/23/2021 0.4 Alkaline Phosphatase (U/L) Date Value 04/02/2023 86 04/23/2021 71 AST (U/L) Date Value 04/02/2023 17 04/23/2021 19 ALT (U/L) Date Value 04/02/2023 15 04/23/2021 11 CBC with diff: WBC 13.33 03/12/2023 RBC 4.69 03/12/2023 Hemoglobin 13.2 03/12/2023 Hematocrit 42.7 03/12/2023 MCV 91.0 03/12/2023 MCH 28.1 03/12/2023 MCHC 30.9 03/12/2023 RDW-CV 15.5 03/12/2023 Platelet Count 265 03/12/2023 MPV 8.5 03/12/2023 Neut% 93.4 03/12/2023 Lymph% 3.0 03/12/2023 Posey% 2.7 03/12/2023 Eosin% 0.1 03/12/2023 Baso% 0.2 03/12/2023 Abs Neut (ANC) 12.46 03/12/2023 Abs Posey 0.36 03/12/2023 Abs Eosin <0.03 03/12/2023 Abs Baso <0.03 03/12/[address]/CTA Chest/Lungs CT CHEST WO IVCON Exam End: 02/11/2023 3:53 PM (Final result) Narrative: * * *Final Report* * * DATE OF EXAM: Feb 11 2023 3:53PM [facility] 0541 - CT CHEST WO IVCON / PROCEDURE REASON: Lung nodules * * * * Physician Interpretation * * * * EXAMINATION: CHEST CT WITHOUT CONTRAST CLINICAL HISTORY: Lung nodules. Technique: Spiral CT acquisition of the chest from the thoracic inlet to the upper abdomen without contrast. MQ: [id number] CT Radiation dose: Integrated Dose-length product (DLP) for this visit = 232 mGy*cm CT Dose Reduction Employed: Automated exposure control(AEC) and iterative recon Comparison: CT chest on 11/18/2022 RESULT: Limitations: None. Lines, tubes, and devices: None. Lung parenchyma and airways: Retained secretion noted in the inferior trachea and left mainstem bronchus; otherwise the central airways are patent. There is diffuse bronchial wall thickening in the bilateral lungs. Numerous bilateral lung nodules/nodular opacities are again visualized. For example, there are stable nodules in the left lung measuring up to 7 mm, series 6 images 23, 55, 64, 66 and 77. There is interval worsening of opacities associated with bronchiolectasis/air lucency in the left lower lobe, series 6 image 83. There is a stable 1.6 x 1.1 cm nodular density in the right lower lobe, series 6 image 151. Noted is interval resolution of previously mentioned a new nodular density in the posterior right lower lobe. Emphysema remains unchanged. A few scattered groundglass densities noted in the lower lungs. Left-sided pleural thickening is again visualized with what appears to be pneumothorax; however, note is interval new air-fluid level along the posterior aspect of the pneumothorax, suggestive of interval development of hydropneumothorax. Adjacent patchy consolidative opacities is noted. Pleural space: Left-sided hydropneumothorax as described above. No right-sided pleural effusion. Lower neck, lymph nodes, and mediastinum: The imaged thyroid gland is normal. No lymphadenopathy in the supraclavicular, axillary, mediastinal, or hilar regions. Heart, pericardium, and thoracic vessels: Stable cardiac chambers, thoracic aorta and central pulmonary arteries. There are atherosclerotic calcifications in the coronary circulations and thoracic aorta. No pericardial effusion/thickening. Bones and soft tissues: Status post median sternotomy and CABG. The spine shows degenerative changes. No destructive bone lesion seen. Upper abdomen: Limited study through the upper abdomen demonstrates a few tiny gallbladder stones. Envelope Stuffer (topogram) images: No additional findings. Impression: IMPRESSION: Multiple stable bilateral lung nodules as described above. Interval resolution of previously mentioned new nodule in the right lower lobe. Emphysema. Interval worsening of opacity in the left lower lobe with central lucency/bronchiolectasis. 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 Gallbladder stones. Neonatal Pediatric Nurse: ARTEM Transcribe Date/Time: Feb 16 2023 11:42A Dictated by : HONEY ABAD MD This examination was interpreted and the report reviewed and electronically signed by: HONEY ABAD MD on Feb 16 2023 3:36PM EST Last XR Chest - Impression Only XR CHEST 2V FRONTAL/LAT Exam End: 10/30/2020 11:32 AM (Final result) Impression: IMPRESSION: Stable abnormal chest ... Last Echocardiogram LVEF ECHO Collected: 04/24/2022 7:15 AM (Final result) Spirometry Data Latest Ref Rng & Units 10/13/2022 FVCPRE L 3.28 FVCPOST L 3.34 [id number] L 1.23 [id number] L 1.23 [id number] % 37 VHE1PGCKQQQ % 37 [id number] L/S 0.45 [id number] L/S 0.41 PEFPRE L/S 3.03 PEFPOST L/S 3.28 DLCO ml/min/mmHg 9.53 SHERLYN L 4.68 DLCOVA ml/min/mmHg/L 2.03 US DVT 03/26/2023 Interpretation Summary Acute deep vein thrombosis is noted in the right posterior tibial vein. Acute deep vein thrombosis is noted in the left posterior tibial vein. CT W CONT 03/25/2023 -- REPORT ONLY FINDINGS: Significant motion artifacts at the origin of the main pulmonary artery. Normal enhancement of the main pulmonary artery and right and left pulmonary arteries. Filling defect consistent with pulmonary embolism and a second branch of left lower lobe pulmonary artery. There is atherosclerotic calcification of the aortic arch and descending thoracic aorta with tortuosity. There is no demonstrated aortic dissection. Normal heart and pericardium. There are calcifications of the coronary arteries. Status post median sternotomy. Normal mediastinum. Normal hilar regions. Normal visualized trachea and bronchi. Pleural-based left lower lobe cavitary lesion measuring about 9 x 5 cm extending to the major fissure increased in size since previous examination concerning for malignancy. Adjacent stranding extending to the medial aspect of the left lower lobe which could be due to scarring. Spiculated lesions in the left upper lobe are again seen. There is a new right lower lobe pulmonary nodule or atelectasis. Scattered patchy ill-defined densities are seen. There are no pleural effusions. IMPRESSION: 1. Pulmonary embolism in second branches of left lower lobe pulmonary artery. 2. Pleural-based cavitary lesion left lower lobe increased in size since previous exam concerning for malignancy corresponding to the PET/CT abnormality. 3. Spiculated lesions in the left lung again concerning for malignancy. 4. Scattered ill-defined densities some of them new since the previous exam. ASSESSMENT: (Z09) Hospital discharge follow-up (primary encounter diagnosis) (J44.9) 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) (J96.11) Chronic hypoxemic respiratory failure (HCC) (I26.99) Other pulmonary embolism without acute cor pulmonale, unspecified chronicity (HCC) (I82.433) Deep vein thrombosis (DVT) of popliteal vein of both lower extremities, unspecified chronicity (HCC) (R04.2) Hemoptysis (Z85.118) History of cancer of lower lobe bronchus or lung IMPRESSION/PLAN: Patient presents today for follow-up of recent hospitalization. He was in [facility] 03/25 through 03/[address] PE showed LLL PE. He was started on Eliquis. Aspirin and plavix discontinued per patient, but upon further review he was told to d/c aspirin, continue plavix. His hemoptysis is improving though seemingly unresolved, as he does report occasional blood-tinged sputum. Images are not available, but CT also noted increase in size of pleural-based cavitary lesion in left lower lobe (?corresponds to known area of pleural thickening and hydropneumothorax following previous LLL wedge resection) as well as spiculated lesions in [place]. He had PET/CT 03/03/2023 which showed multiple areas of FDG avidity throughout the right and left lung. He follows closely with oncology at [facility] and thoracic surgeon at [facility] who are planning biopsy after 6 weeks of anticoagulation. Patient will continue current therapy which includes advair, spiriva, prednisone 10 mg, albuterol PRN, oxygen at 3L continuously. 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 Will defer this to heme/onc. I will reach out to Dr. Calvillo, then possibly riprap placing supervisor and vascular surgeon to discuss risk vs benefits of continuing plavix along with eliquis and inform patient. He has existing follow up with pulm 05/11. Electronically signed by: Tip Mac APRN.[facility] Pul[facility], [facility] I have collected the history from the patient and chart. I have personally examined the patient, and have also independently reviewed the imaging and any available laboratory data. I addressed the questions of the patient, and patient has expressed understanding and acceptance of my answers. Patient instructed to contact me via my chart for radiology and lab test results. Return in about 4 weeks (around 05/12/2023). Patient instructed to call our office or PCP or go to the emergency department for new or worsening problems or symptoms including, but not limited to, increasing shortness of breath, cough, phlegm, fever, and chills. I spent a total of 47 minutes on the date of the service which included preparing to see the patient, [id number] patient care, completing clinical documentation, obtaining and/or reviewing separately obtained history, performing a medically appropriate examination, counseling and educating the pat ient/family/caregiver, ordering medications, tests, or procedures, independently interpreting results (not separately reported), and communicating results to the patient/family/caregiver documented in this encounterProm[facility]02-[facility] History of Present illness Narrative* Salazar Meraz, - 04/08/2023 3:49 PM EST Oncologic problem(s): 1) 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 HPI: The patient is an 82-year-old male with a past medical history significant for hyperlipidemia,hypertension, AAA, coronary artery disease (CABG x3 vessels), COPD and prostate cancer. Patient underwent a CT scan of the abdomen which incidentally revealed the presence of the left lower lobe lung nodule which was not previously observed on a CT chest from 2016. He therefore underwent a CT of the chest on 01/17/2020. That study demonstrated stable appearing scarring in the right lower lobe unchanged from previous study in 2012. There was scarring and nodularity left upper lobe aswell as a focal mass in the left lower lobe measuring 1.4 x 1.1 x 1.0 cm. He underwent a CT-guided biopsy on 01/27/2020. Tissue was nondiagnostic and the patient developed apneumothorax. He was transferred to [facility] [place]. PET scan 02/17/2020 done at [facility] demonstrated a 1.2 cm spiculated nodule in the periphery of the left lower lobe with intense FDG uptake. There was a small to moderate sized loculated pleural effusion along the lateral aspect of the left hemithorax. There was also moderately intense focal FDG accumulation along the posterior periphery of the prostate intensity uptake was suspicious for malignancy. There is a 3.4 cm infrarenal abdominal aortic aneurysm. Uderwent a left thoracoscopy with conversion to mini thoracotomy, evacuation of pleural effusion along with wedge resection of the left lower lobe lung mass including frozen section on 02/20/2020. Pathology: Moderately differentiated squamous cell carcinoma extending to the inked parenchymal margin. Pleural biopsy demonstrated fibrous tissue with hemorrhage and background blood clot. Synoptic report reviewed in care everywhere. Briefly overall tumor size was 1.1 x 0.9 x 0 point centimeter. It was a single focus of disease. No invasion to adjacent structures. Lymphovascular invasion was not identified bronchial and vascular margins were not applicable and the parenchymal margin was positive for invasive carcinoma. No lymph nodes observed in the specimen. Completed RT to the left lower lung on 05/21/2020. He was hospitalized on July 09 for pneumonia/exacerbation of COPD. Couple days prior to that he had sudden worsening of his chronic dyspnea. He underwent repeat CT chest on 08/10/2020. The study demonstrated tree-in-bud formation concerning for multifocal pneumonia in the right lung with a left apical pulmonary nodule with internal cavitation. Underwent bronchoscopy on 08/14. Lavage was performed. Cultures grew MSSA and Streptococcus mitis. He was treated with antimicrobials due to decompensated respiratory status and manage with prednisone as well. He had improvement in symptoms. Presents for ongoing oncologic management. Interim history: Since I last saw him, he was admitted to [facility] on 03/25/2023 for hemoptysis. He underwent a repeat CTA of the chest. When compared to the study done 10/2022 pulmonary emboli were observed in the second branch of the of the left lower lobe pulmonary artery. There was a pleural-based cavitary lesion in the left lower lobe increased in size since previous exam concerning for malignancy corresponding to the PET/CT abnormality. Spiculated lesions in the left lung were concerning for malignancy. Scattered ill-defined densities and some of them were new since previous exam. Duplex ultrasound legs demonstrated acute DVT in the right and left posterior tibial veins. He was monitored until 03/27. Hemoptysis resolved. He was started on apixaban. He had been on aspirin and Plavix and was advised to discontinue both at discharge. Still having occasional blood tinged sputum. Breathing stable. Pain not quite as bad. Continues oxycodone and Tylenol. Oxycodone mainly to help breathing. Has noticed bruising of hands has improved. Good appetite. PMH, medications and allergies personally reviewed by me today. Any changes documented in appropriate section. PHYSICAL EXAM: Vitals: Blood pressure 132/82, pulse 92, temperature 36.6 C (97.8 F), temperature source Temporal, weight 80.7 kg (178 lb), SpO2 98%. Well-appearing and in no acute distress. EYES: Sclerae are anicteric bilaterally. LYMPHATIC: There is no palpable cervical or supraclavicular adenopathy. RESPIRATORY: Inspiratory breath sounds are of very diminished intensity in all [place]. CARDIOVASCULAR: Rhythm is regular. ABDOMEN: The abdomen is nondistended. Extremities: No swelling or edema. SKIN: No jaundice or rash. No petechiae. MS: There is a palpable defect in the left rib in the posterior axillary line. Not tender today. ASSESSMENT/PLAN: (C33, C34.80) Cancer of trachea, bronchus, and lung (HCC) (primary encounter diagnosis) Assessment: -The patient is an 82-year-old male with a past medical history significant for advanced/severe COPD and prostate cancer who underwent a wedge resection for diagnostic and therapeutic purposes of a left lower lobe lung nodule. 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 -He received adjuvant radiation. -Recent PET scan concern for local recurrence and also appears to have pleural- based disease medialportion of the left lung in addition to several nodules that are new in the left lung. -Pain has improved somewhat with anticoagulation. -Again discussed plan for biopsy after several more weeks of anticoagulation. Previously discussed with Dr. Herrmann. Plan: -Continue apixaban 5 mg BID. -Biopsy in about 4 weeks. -OV about 1-2 weeks after biopsy. (C61) Prostate cancer (HCC) Assessment: -EBRT 2016. -Follows with Dr. Catalan. -Most recent PSA 0.22 ng/mL 03/23/2023. Plan: -Continue follow up with Dr. Catalan. 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 -Tolerating anticoagulation well. -Hemoptysis significantly improved. Plan: -Continue apixaban 5 mg BID. Portions of this documentation were copied and pasted from previous office visit notes in order to provide a cohesive continuity of the history. The note has been reviewed and edited and updated as necessary. I spent a total of 20 minutes on the date of the service which included preparing to see the patient, [id number] patient care, completing clinical documentation, obtaining and/or reviewing separately obtained history, performing a medically appropriate examination, counseling and educating the pat ient/family/caregiver, communicating with other HCPs (not separately reported), and communicating results to the patient/family/caregiver. Salazar Meraz DO [facility] History of Present illness Narrative* Oliverio Herrmann MD - 04/03/2023 1:00 PM EST Images from the original note were not included. [facility] CARDIOVASCULAR & THORACIC SURGERY [address] [facility] [address] Dept: [phone] Dept Loc: [phone] Patient was identified and seen today via Telehealth by agreement and consent. I used the followingTelehealth technology: Audio capability only. Total length of call 10 minutes. The patient was offered and advised video for a more comprehensive evaluation, but the patient declined or was unable touse video. Patient location: Patient Location: Home. This patient encounter is appropriate and reasonable under the circumstances: transportation issues . The patient has been advised of the potential risks and limitations of this mode of treatment (including but not limited to the absence of in-person examination) and has agreed to be treated in a remote fashion in spite of them. Any and all o f the patient's/patient's family's questions on this issue have been answered and I have made no promises or guarantees to the patient. The patient has also been advised to contact this office for worsening conditions or problems, and seek emergency medical treatment and/or call 911 if the patient deems either necessary. The patient stated that they are currently in the state [facility]. If the patient is a minor, permission has been obtained by the parent or guardian for the patient to receive medical care at this visit. Visit type: Established Reason for Visit: Follow-up telephone conversation Assessment and plan I have spoken with Dr. Meraz ([place] oncologist), who agrees that operative treatment is preferredif the suspicious lesions are consistent with malignancy. A CT-guided needle biopsy would be required to determine whether malignancy is present. Given the recent pulmonary embolism and the need for anticoagulation, we both agree that the best course of action would be to delay sampling for 6 weeksuntil the lung could heal a bit and the anticoagulation could be temporarily discontinued so as to allow the biopsy and prompt resuming of the anticoagulation upon completion of the sampling. We both discussed the risk benefits and alternatives of waiting versus proceeding and we believe that a delay of 6 weeks will not impact this patient's survival expectancy and would be the safest option. I discussed this in detail with the patient and he agrees with that plan. We will contact the patient will be made closer to the time to schedule the biopsy and coordinate discontinuation of his Plavix/Eliquis prior to CT-guided needle biopsy. History of Present Illness Oswaldo Corley is a 82 y.o. male known to Dr. Herrmann for left thoracoscopy, conversion to mini thoracotomy, evacuation of pleural effusion, wedge resection of left lower lobe lung mass with frozensection on 02/20/2020. Per notes, patient has a past medical history of hyperlipidemia, hypertension, AAA, coronary arterydisease (CABG x3 vessels), COPD and prostate cancer. Patient underwent a left thoracoscopy, conversion to mini thoracotomy, evacuation of pleural effusion, wedge resection of left lower lobe lung mass with frozen section on 02/20/[address] Herrmann. The patient final pathology report did demonstrate non-small cell lung cancer. Although the gross margins were negative, the tumor cells came to within 1 mm of the stapled margin. He is not a candidate for completion lobectomy due to significant emphysema.The possibility for concomitant radiation or chemotherapy can be considered. Unfortunately, patient is not a candidate for any additional lung surgery given the profound nature of his emphysema. Patient underwent radiation treatment 05/01/2020-05/21/20. Patient has been undergoing close surveillance with CT scans and PET scans. 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 Patient also completed his PET scan on 03/03/23 that demonstrated an abnormal result. Patient saw Dr. Meraz on 03/20/23 and he discussed with patient for a concern for local recurrence and also appears to have pleural based disease medial portion of the left lung in addition to several nodules that are new in the left lung. Patient was started on Levaquin and referred to Dr. Herrmann for an opinion on biopsy. Patient was admitted 03/25/23 for hemoptysis- patient was found to have PE- started on Eliquis. Patient was discharged on 03/27/23. Patient is a former smoker. Patient is on Eliquis and Plavix. Dr. Herrmann last note 03/31/23 This 82-year-old gentleman has previously undergone wedge resection for left- sided lung cancer. Hispulmonary function tests show limited pulmonary reserve. A CT scan of the chest reveals bilateral spiculated lesions with PET scan activity that are concerning for recurrent and/or new malignancy within the pulmonary parenchyma. In addition, patient recently had a PE (March 2023) and was started on Eliquis. I have discussed this case with the patient's oncologist in [place], Dr. Meraz, who states that nonsurgical treatment would be an option if we documented malignancy. We both agree that a CT-guided biopsy of 1 or more of the pulmonary lesions should be able to help determine whether recurrent/new malignancy is present. However, with a recent pulmonary embolism, we should wait approximately 4 to 6 weeks before discontinuing his Eliquis so that a biopsy can be obtained. I will discuss this plan with the patient during a virtual visit and make arrangements for the biopsy to be performed at [facility] at Dr. Meraz's request. Patient is here today to discuss options. Past Medical History Past Medical History: Diagnosis Date Aneurysm of aorta (CMS/HCC) Bronchiectasis (CMS/HCC) CAD (coronary artery disease) Chronic hypoxemic respiratory failure (CMS/HCC) COPD (chronic obstructive pulmonary disease) (CMS/HCC) HLD (hyperlipidemia) HTN (hypertension) Influenza B Nocturnal hypoxia On home O2 2 Liters at bedtime Prostate CA (CMS/HCC) Past Surgical History Past Surgical History: Procedure Laterality Date CORONARY ANGIOPLASTY WITH STENT PLACEMENT 2012 LAD, occluded FRANCIA and COLEMAN CORONARY ARTERY BYPASS GRAFT 1999 LUNG BIOPSY Left 2019 PLEURA BIOPSY Left 02/20/2020 VATS TRANSURETHRAL RESECTION OF PROSTATE Family History Family History Problem Relation Name Age of Onset Heart disease Father Diabetes Father Cancer Sister Cancer Mother Diabetes Brother Social History Social History Tobacco Use Smoking status: Former Types: Cigarettes Start date: 03/02/1962 Quit date: 03/02/2002 Years since quittin.1 Smokeless tobacco: Never Substance Use Topics Alcohol use: Yes Alcohol/week: 3.0 standard drinks of alcohol Drug use: Not Currently Allergies No Known Allergies Medications Current Outpatient Medications: acetaminophen (Tylenol Extra Strength) 500 MG tablet, Take 1,000 mg by mouth every 6 hours as needed for mild pain (1-3)., Disp: , Rfl: apixaban (Eliquis) 5 MG tablet, Take 5 mg by mouth 2 times daily., Disp: , Rfl: atorvastatin (Lipitor) 40 MG tablet, Take 40 mg by mouth daily., Disp: , Rfl: clopidogrel (Plavix) 75 MG tablet, Take 75 mg by mouth daily., Disp: , Rfl: dextromethorphan-guaiFENesin (Mucinex DM) 30-600 MG 12 hr tablet, Take 1 tablet by mouth in the morning and 1 tablet in the evening. Do not crush, chew, or split.., Disp: , Rfl: DULoxetine (Cymbalta) [address] capsule, Take 30 mg by mouth 2 times daily. Do not crush or chew., Disp: , Rfl: fluticasone-salmeterol (Advair HFA) 230-21 MCG/ACT inhaler, Inhale 2 puffs in the morning and 2 puffs in the evening. Rinse mouth with water after use to reduce aftertaste and incidence of candidiasis. Do not swallow.., Disp: , Rfl: ipratropium-albuterol (Combivent Respimat) 20-100 MCG/ACT inhaler, Inhale 1 puff 4 times daily., Disp: , Rfl: LORazepam (Ativan) 0.5 MG tablet, Take 0.5 mg by mouth every 8 hours as needed for anxiety., Disp: , Rfl: nitroglycerin (NitrolinguaL) 0.4 MG/SPRAY spray, Place 1 spray under the tongue every 5 minutes as needed for chest pain., Disp: , Rfl: oxyCODONE (Oxy-IR) 5 MG immediate release capsule, Take 5 mg by mouth. prn, Disp: , Rfl: oxyCODONE-acetaminophen (Roxicet) 5-325 MG/5ML solution, Take by mouth., Disp: , Rfl: polyethylene glycol, PEG, 3350 (Miralax) 17 g packet, Take 17 g by mouth daily., Disp: , Rfl: predniSONE (Deltasone) 10 MG tablet, Take 10 mg by mouth daily., Disp: , Rfl: tamsulosin (Flomax) 0.4 MG 24 hr capsule, Take 0.4 mg by mouth daily., Disp: , Rfl: tiotropium (Spiriva Respimat) 2.5 MCG/ACT inhaler, Inhale 2 puffs daily., Disp: , Rfl: Review of Systems Review of Systems All other systems reviewed and are negative. Labs Auto WBC Date/Time Value Ref Range Status 04/07/2020 03:00 AM 4.7 3.6 - 10.7 10*3/uL Final 04/06/2020 04:53 AM 4.7 3.6 - 10.7 10*3/uL Final Hemoglobin Date/Time Value Ref Range Status 04/07/2020 03:00 AM 12.5 (L) 13.0 - 18.0 g/dL Final 04/06/2020 04:53 AM 12.8 (L) 13.0 - 18.0 g/dL Final SODIUM Date/Time Value Ref Range Status 04/07/2020 03:00 AM 141 135 - 145 mmol/L Final 04/06/2020 04:53 AM 138 135 - 145 mmol/L Final POTASSIUM Date/Time Value Ref Range Status 04/07/2020 03:00 AM 4.7 3.5 - 5.1 mmol/L Final 04/06/2020 04:53 AM 4.1 3.5 - 5.1 mmol/L Final CREATININE Date/Time Value Ref Range Status 04/07/2020 03:00 AM 0.65 0.52 - 1.25 mg/dL Final 04/06/2020 04:53 AM 0.78 0.52 - 1.25 mg/dL Final Imaging discussed Patient Care Team: PCP: Disclaimer INFORMED CONSENT:The nature and purpose of the proposed treatment or procedure have been discussed.The risks and benefits of the proposed treatment or procedures have been reviewed. Alternatives have been reviewed in addition to the risks and benefits of not receiving treatments or undergoing procedures. Pursuant to this discussion, the patient agrees to undergo the proposed treatment or procedure. Captured images seen in this note from are not a substitute for a comprehensive interpretation of the entire data set as reflected by the interpreting physician with regard to radiology, echocardiography, and other diagnostic images. This note may have been dictated using [employer] Practice Edition 2.6 and/or [employer] Voice Recognition Feature. The document was proofread, however unrecognized voice recognition desktop support manager errors may be present. documented in this [facility]01-30-2024 History of Present illness Narrative* Oliverio Herrmann MD - 03/31/2023 11:30 AM EST Images from the original note were not included. [facility] CARDIOVASCULAR & THORACIC SURGERY [address] [facility] [address] Dept: [phone] Dept Loc: [phone] Patient was identified and seen today via Telehealth by agreement and consent. I used the followingTelehealth technology: Audio capability only. Total length of call 15 minutes. The patient was offered and advised video for a more comprehensive evaluation, but the patient declined or was unable touse video. Patient location: Patient Location: Home. This patient encounter is appropriate and reasonable under the circumstances: transportation issues . The patient has been advised of the potential risks and limitations of this mode of treatment (including but not limited to the absence of in-person examination) and has agreed to be treated in a remote fashion in spite of them. Any and all o f the patient's/patient's family's questions on this issue have been answered and I have made no promises or guarantees to the patient. The patient has also been advised to contact this office for worsening conditions or problems, and seek emergency medical treatment and/or call 911 if the patient deems either necessary. The patient stated that they are currently in the state [facility]. If the patient is a minor, permission has been obtained by the parent or guardian for the patient to receive medical care at this visit. Visit type: Established Reason for Visit: Evaluate new lung lesions on CT/PET scan Assessment and plan This 82-year-old gentleman has previously undergone wedge resection for left- sided lung cancer. Hispulmonary function tests show limited pulmonary reserve. A CT scan of the chest reveals bilateral spiculated lesions with PET scan activity that are concerning for recurrent and/or new malignancy within the pulmonary parenchyma. In addition, patient recently had a PE (March 2023) and was started on Eliquis. I have discussed this case with the patient's oncologist in [place], Dr. Meraz, who states that nonsurgical treatment would be an option if we documented malignancy. We both agree that a CT-guided biopsy of 1 or more of the pulmonary lesions should be able to help determine whether recurrent/new malignancy is present. However, with a recent pulmonary embolism, we should wait approximately 4 to 6 weeks before discontinuing his Eliquis so that a biopsy can be obtained. I will discuss this plan with the patient during a virtual visit and make arrangements for the biopsy to be performed at [facility] at Dr. Meraz's request. History of Present Illness Oswaldo Corley is a 82 y.o. male known to Dr. Herrmann for left thoracoscopy, conversion to mini thoracotomy, evacuation of pleural effusion, wedge resection of left lower lobe lung mass with frozensection on 02/20/2020. Per notes, patient has a past medical history of hyperlipidemia, hypertension, AAA, coronary arterydisease (CABG x3 vessels), COPD and prostate cancer. Patient underwent a left thoracoscopy, conversion to mini thoracotomy, evacuation of pleural effusion, wedge resection of left lower lobe lung mass with frozen section on 02/20/[address] Herrmann. The patient final pathology report did demonstrate non-small cell lung cancer. Although the gross margins were negative, the tumor cells came to within 1 mm of the stapled margin. He is not a candidate for completion lobectomy due to significant emphysema.The possibility for concomitant radiation or chemotherapy can be considered. Unfortunately, patient is not a candidate for any additional lung surgery given the profound nature of his emphysema. Patient underwent radiation treatment 05/01/2020-05/21/20. Patient has been undergoing close surveillance with CT scans and PET scans. 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 Patient also completed his PET scan on 03/03/23 that demonstrated an abnormal result. Patient saw Dr. Meraz on 03/20/23 and he discussed with patient for a concern for local recurrence and also appears to have pleural based disease medial portion of the left lung in addition to several nodules that are new in the left lung. Patient was started on Levaquin and referred to Dr. Herrmann for an opinion on biopsy. Patient was admitted 03/25/23 for hemoptysis- patient was found to have PE- started on Eliquis. Patient was discharged on 03/27/23. Patient is a former smoker. Patient is on Eliquis and Plavix. Past Medical History Past Medical History: Diagnosis Date Aneurysm of aorta (CMS/HCC) Bronchiectasis (CMS/HCC) CAD (coronary artery disease) Chronic hypoxemic respiratory failure (CMS/HCC) COPD (chronic obstructive pulmonary disease) (CMS/HCC) HLD (hyperlipidemia) HTN (hypertension) Influenza B Nocturnal hypoxia On home O2 2 Liters at bedtime Prostate CA (CMS/HCC) Past Surgical History Past Surgical History: Procedure Laterality Date CORONARY ANGIOPLASTY WITH STENT PLACEMENT 2012 LAD, occluded FRANCIA and COLEMAN CORONARY ARTERY BYPASS GRAFT 1999 LUNG BIOPSY Left 2019 PLEURA BIOPSY Left 02/20/2020 VATS TRANSURETHRAL RESECTION OF PROSTATE Family History Family History Problem Relation Name Age of Onset Heart disease Father Diabetes Father Cancer Sister Cancer Mother Diabetes Brother Social History Social History Tobacco Use Smoking status: Former Types: Cigarettes Start date: 03/02/1962 Quit date: 03/02/2002 Years since quittin.0 Smokeless tobacco: Never Substance Use Topics Alcohol use: Yes Alcohol/week: 3.0 standard drinks of alcohol Drug use: Not Currently Allergies No Known Allergies Medications Current Outpatient Medications: acetaminophen (Tylenol Extra Strength) 500 MG tablet, Take 1,000 mg by mouth every 6 hours as needed for mild pain (1-3)., Disp: , Rfl: apixaban (Eliquis) 5 MG tablet, Take 5 mg by mouth 2 times daily., Disp: , Rfl: atorvastatin (Lipitor) 40 MG tablet, Take 40 mg by mouth daily., Disp: , Rfl: clopidogrel (Plavix) 75 MG tablet, Take 75 mg by mouth daily., Disp: , Rfl: dextromethorphan-guaiFENesin (Mucinex DM) 30-600 MG 12 hr tablet, Take 1 tablet by mouth in the morning and 1 tablet in the evening. Do not crush, chew, or split.., Disp: , Rfl: DULoxetine (Cymbalta) [address] capsule, Take 30 mg by mouth 2 times daily. Do not crush or chew., Disp: , Rfl: fluticasone-salmeterol (Advair HFA) 230-21 MCG/ACT inhaler, Inhale 2 puffs in the morning and 2 puffs in the evening. Rinse mouth with water after use to reduce aftertaste and incidence of candidiasis. Do not swallow.., Disp: , Rfl: ipratropium-albuterol (Combivent Respimat) 20-100 MCG/ACT inhaler, Inhale 1 puff 4 times daily., Disp: , Rfl: LORazepam (Ativan) 0.5 MG tablet, Take 0.5 mg by mouth every 8 hours as needed for anxiety., Disp: , Rfl: nitroglycerin (NitrolinguaL) 0.4 MG/SPRAY spray, Place 1 spray under the tongue every 5 minutes as needed for chest pain., Disp: , Rfl: oxyCODONE (Oxy-IR) 5 MG immediate release capsule, Take 5 mg by mouth. prn, Disp: , Rfl: oxyCODONE-acetaminophen (Roxicet) 5-325 MG/5ML solution, Take by mouth., Disp: , Rfl: polyethylene glycol, PEG, 3350 (Miralax) 17 g packet, Take 17 g by mouth daily., Disp: , Rfl: predniSONE (Deltasone) 10 MG tablet, Take 10 mg by mouth daily., Disp: , Rfl: tamsulosin (Flomax) 0.4 MG 24 hr capsule, Take 0.4 mg by mouth daily., Disp: , Rfl: tiotropium (Spiriva Respimat) 2.5 MCG/ACT inhaler, Inhale 2 puffs daily., Disp: , Rfl: Review of Systems Review of Systems Physical Exam Vitals: There were no vitals taken for this visit. Constitutional: General: Not in acute distress. Appearance: Normal appearance. Not toxic-appearing. Ear, nose, mouth: Bilateral external ear and nose normal. Nose: Nose normal. Mouth: Appearance normal, no bleeding, moist mucus membranes Eyes: General: No scleral icterus. No discharge from bilateral eyes Extraocular Movements: Extraocular movements intact. Pupils equal and reactive bilaterally Cardiovascular: Heart: Regular rhythm. Normal heart sounds. Edema: no edema in bilateral lower extremities Pulmonary: Effort: Pulmonary effort is normal. No respiratory distress. Breath sounds: Normal breath sounds. No wheezing. Chest wall: No tenderness. Abdominal: Appearance: Not distended Palpations: There is no abdominal tenderness, no guarding. Musculoskeletal: Bilateral upper and lower extremities: Normal range of motion, no deformity Head: Normocephalic and atraumatic. Neck: Normal range of motion and neck supple. No muscular tenderness. Lymphadenopathy: Cervical: No cervical adenopathy. Skin: General: Skin is warm and dry. Coloration: Skin is not jaundiced. Neurological: General: No focal deficit present. Cranial Nerves: No obvious cranial nerve deficit. Psychiatric: Mood and Affect: Mood normal. Thought Content: Thought content normal. Patient has good judgement and insight Mental Status: Alert and oriented to place, person, and time. Labs Auto WBC Date/Time Value Ref Range Status 04/07/2020 03:00 AM 4.7 3.6 - 10.7 10*3/uL Final 04/06/2020 04:53 AM 4.7 3.6 - 10.7 10*3/uL Final Hemoglobin Date/Time Value Ref Range Status 04/07/2020 03:00 AM 12.5 (L) 13.0 - 18.0 g/dL Final 04/06/2020 04:53 AM 12.8 (L) 13.0 - 18.0 g/dL Final SODIUM Date/Time Value Ref Range Status 04/07/2020 03:00 AM 141 135 - 145 mmol/L Final 04/06/2020 04:53 AM 138 135 - 145 mmol/L Final POTASSIUM Date/Time Value Ref Range Status 04/07/2020 03:00 AM 4.7 3.5 - 5.1 mmol/L Final 04/06/2020 04:53 AM 4.1 3.5 - 5.1 mmol/L Final CREATININE Date/Time Value Ref Range Status 04/07/2020 03:00 AM 0.65 0.52 - 1.25 mg/dL Final 04/06/2020 04:53 AM 0.78 0.52 - 1.25 mg/dL Final Imaging CTA Chest 03/25/23 PET Scan 03/03/23 Patient Care Team: PCP: Dr. Mei Cummins MD Hem/ onc: Salazar Meraz DO Disclaimer INFORMED CONSENT:The nature and purpose of the proposed treatment or procedure have been discussed.The risks and benefits of the proposed treatment or procedures have been reviewed. Alternatives have been reviewed in addition to the risks and benefits of not receiving treatments or undergoing procedures. Pursuant to this discussion, the patient agrees to undergo the proposed treatment or procedure. Captured images seen in this note from are not a substitute for a comprehensive interpretation of the entire data set as reflected by the interpreting physician with regard to radiology, echocardiography, and other diagnostic images. This note may have been dictated using [employer] Practice Edition 2.6 and/or [employer] Voice Recognition Feature. The document was proofread, however unrecognized voice recognition desktop support manager errors may be present. documented in this [facility]01-26-2024 Consult note Author Levi Heredia [facility] March 27, 2023 11:39am Note Date/Time March 27, 2023 1 1:39am [facility] Medical Records Department [address] [place] [id number] Counseling Note - Pharmacy 03/27/23 1138 MR#: [id number] Acct: [id number] Name: OSWALDO CORLEY Rep #:[id number] : 1940 82 From: Levi Heredia PCP: Dr. Mei Cummins MD Status:AD M IN Y Location: [facility] [id number] Pharmacy [facility] has performed discharge medication reconciliation and counseling for this patient. The patient's discharge medication list was reviewed for discrepancies and discrepancies were resolved. The patient was counseled on the following discharge medications and changes in medications for homegoing were reviewed. The Reason for Use, instructions for use, and potential side effects were reviewed for all new medications. The patient's questions regarding all of their medications were answered. 1. Apixaban 10 mg PO BID x 7 days, then 5 mg PO BID thereafter 2. Mucinex D 1 tablet PO BID x 7 days The patient was able to verbally demonstrate an understanding of their dischargemedications. Medications at Discharge Home Medications aspirin 81 mg chewable tablet 81 mg PO QPM heart health 12/29/14 nitroglycerin 0.4 mg sublingual tablet 0.4 mg sublingual Q5M PRN Chest Pain 12/29/14 lorazepam 1 mg tablet (Ativan) 0.5 - 1 mg PO TID PRN Anxiety 07/09/20 polyethylene glycol 3350 17 gram oral powder packet (Miralax) 17 g PO DAILY PRN Constipation 07/09/20 acetaminophen 325 mg tablet (Tylenol) 650 mg PO Q4H PRN Pain 08/13/20 prednisone 10 mg tablet 10 mg PO QDAY #90 tabs 01/15/22 oxycodone 5 mg tablet 2.5 - 5 mg PO Q6H PRN PAIN AND BREATHING 02/05/22 levalbuterol tartrate 45 mcg/actuation aerosol inhaler 2 inh inhalation Q4H PRN shortness of breath or wheezing #15 grams 07/25/22 fluticasone propionate 230 mcg-salmeterol 21 mcg/actuation HFA inhaler (Advair HFA) 2 puff inhalation BID 08/07/22 atorvastatin 40 mg tablet 40 mg PO QHS cholesterol 03/25/23 duloxetine 30 mg capsule,delayed release 30 mg PO QPM DEPRESSION 03/25/23 lidocaine 4 % topical patch 1 patch topical DAILY 03/25/23 tamsulosin 0.4 mg capsule 0.4 mg PO QPM BLADDER/ PROSTATE 03/25/23 tiotropium bromide 2.5 mcg/actuation mist for inhalation (Spiriva Respimat) 2 puff inhalation DAILY copd 03/25/23 apixaban 5 mg (74 tabs) tablets in a dose pack (Eliquis DVT-PE Treat 30D Start) 5 mg PO BID #74 tabs 03/27/23 clopidogrel 75 mg tablet 75 mg PO QPM 30 days #30 tabs 03/27/23 pseudoephedrine-guaifenesin ER 120 mg-1,200 mg tab,extend release 12hr (Mucus D)1 tab PO Q12H 1 week #14 tabs 03/27/23 03/27/23 1139 <Electronically signed by Levi cesar> Date _ Levi Pierce Signature (if applicable): Date CC: ~ Signed [facility] Work Phone: 1(340) 466-933301-26-2024 Discharge summary Author Martin Zaragoza [facility] March 27, 2023 10:57am Note Date/Time March 27, 2023 1 0:27am [facility] Medical Records Department [address] [place] [address] Instructions for Home/Discharge Instructions 03/27/23 1027 MR#: [id number] Acct: [id number] Name: OSWALDO CORLEY Rep #:[id number] : 1940 82 From: Martin Carr PCP: Dr. Mei Cummins MD Status:AD M IN Discharge Instructions Diet Discharge Diet: 2000 mg Sodium Diet Activity Discharge Activity: Return to Normal Activity Weight Bearing Status: Weight bearing as tolerated Dressing / Incision Call your doctor if you observe: Fever of 101 or Higher, Coldness, Increased Pain, Numbness or Tingling, Change in Color, Inability to urinate, Inability to have a bowel movement, Shortness of breath, Dizziness, Fainting spells, Swellingin the ankles, Chest pain, Prolonged hiccupping, Increased palpitations (irregular heartbeat) and Calf discomfort Follow Up Care When: IN 2 WEEKS Test Results: Test results from this visit will be discussed in further detail at your follow- up appointment, if applicable. Discharge Plan Admission Admit Date/Time: 03/26/23 11:57 Primary Reason for Your Visit: Acute left lower lobe pulmonary embolism with history of lung cancer. Attending Provider: Martin Zaragoza Primary Care Provider: Mei Cummins Consulting Providers: Jacob Suazo Instructions Additional Instructions / Restrictions: Patient needs to continue Eliquis most likely whole life as he has lung cancer. Discharge Orders/Prescriptions Prescriptions: New Eliquis DVT-PE Treat 30D Start 5 mg (74 tabs) tablets,dose pack 5 mg PO BID Qty: 74 0RF Rx Instructions: 10 mg (2 tabs) twice daily for 7 days and then twice daily to continue. pseudoephedrine-guaifenesin [Mucus D] 120-1,200 mg tablet extended release 12 hr 1 tab PO Q12H 7 Days Qty: 14 0RF Continued oxycodone 5 mg tablet 2.5 - 5 mg PO Q6H PRN (Reason: PAIN AND BREATHING) fluticasone propion-salmeterol [Advair HFA] 230-21 mcg/actuation HFA aerosol inhaler 2 puff inhalation BID nitroglycerin 0.4 MG tablet 0.4 mg SL Q5M PRN (Reason: Chest Pain) aspirin 81 MG tablet,chewable 81 mg PO QPM Patient Comments: heart, blood thinner polyethylene glycol 3350 [Miralax] 17 gram Powder In Packet 17 g PO DAILY PRN (Reason: Constipation) lorazepam [Ativan] 1 mg tablet 0.5 - 1 mg PO TID PRN (Reason: Anxiety) acetaminophen [Tylenol] 325 mg Tablet 650 mg PO Q4H PRN (Reason: Pain) atorvastatin 40 mg tablet 40 mg PO QHS duloxetine 30 mg capsule,delayed release(DR/EC) 30 mg PO QPM tamsulosin 0.4 mg capsule 0.4 mg PO QPM Spiriva Respimat 2.5 mcg/actuation mist 2 puff INHALATION DAILY Rx Instructions: USES AROUND NOON lidocaine 4 % adhesive patch,medicated 1 patch TOPICAL DAILY Rx Instructions: APPLY TO AFFECTED AREA FOR 12 HOURS, AND THEN TAKE OFF FOR 12 HOURS prednisone 10 mg tablet 10 mg PO QDAY Qty: 90 3RF Hold Instructions: Resume on 12/28/21. hold while on prednisone burst & taper levalbuterol tartrate 45 mcg/actuation HFA aerosol inhaler 2 inh inhalation Q4H PRN (Reason: shortness of breath or wheezing) Qty: 15 11RF Discontinued clopidogrel 75 MG tablet 75 mg PO QPM guaifenesin [Mucinex] 1,200 mg Tablet Extended Release 12hr 1,200 mg PO BID levofloxacin 500 mg tablet 500 mg PO DAILY Rx Instructions: END DATE: 03/25/23 Referrals / Follow Up: Mei Cummins MD [Primary Care Provider] - 04/03/23 2:20 pm Disposition Discharge Orders: Discharge Patient (Routine); Ordered 03/27/23 Ordered By: Dr. Martin Zaragoza 03/27/23 1057<Electronically signed by Martin Zaragoza MD>Martin Zaragoza MD CC: Dr. Jacob Suazo, DO; Dr. Mei Cummins MD ~ Signed [facility] Work Phone: 1(887) 513-308701-26-2024 Discharge summary Author Martin Zaragoza [facility] March 27, 2023 12:35pm Note Date/Time March 27, 2023 1 0:57am [facility] Medical Records Department [address] [place] [address] Discharge Summary 03/27/23 1057 MR#: [id number] Acct: [id number] Name: OSWALDO CORLEY Rep #:[id number] : 1940 82 From: Martin Carr PCP: Dr. Mei Cummins MD Status:[facility] [place] Location: [place] [address] Providers Date of Admission: 03/26/23 Date of Discharge: 03/27/23 Primary Care Physician: Dr. Mei Cummins MD Reason For Visit: ACUTE PE, KNOWN LUNG MALIGNANCY Diagnosis Discharge Diagnosis (1) Pulmonary embolus: Status: Acute Code(s): I26.99 - Other pulmonary embolism without acute cor pulmonale (2) Pulmonary neoplasm: Status: Acute Code(s): D49.1 - 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 (3) Major hemoptysis: Status: Acute Code(s): R04.2 - Hemoptysis Plan Patient is an 82-year-old male who presented to [facility] ED on03/25/2023 with hemoptysis, shortness of breath and dyspnea. 1. Acute left lower lobe PE, off left lower lobe pulmonary artery, unprovoked: CT chest individually reviewed. Patient tachycardic, dyspnea at rest and tachypneic in the morning. Patient has hemoptysis but will continue anticoagulant. IV heparin changed to enoxaparin. Troponin and BNP ordered. 2Decho is ordered. As patient is still short of breath therefore patient observation status needs to change to inpatient status. 03/27: Troponin and BNP negative. 2D echo reviewed. Normal RV size and systolicfunction. EF 60%. Prescription given for Eliquis, DVT/PE dose, 10 mg for 1 week and then 5 mg twice daily to continue. In view of lung cancer history I feel patient needs to continue Eliquis throughout the life as this was an unprovoked PE. Patient already on aspirin and Plavix as he has history of CAD with cardiac stent in 2012 and PAD and lower extremity stent on April,. Patient already has hemoptysis which has controlled therefore will prefer only 2blood thinners. Therefore hold or discontinue baby aspirin while the patient istaking Eliquis. Continue Eliquis at least for 1 year till May 2023. Prescription also sent for Plavix and Mucinex DM. Follow-up with [facility] supervisory aide Dr. Ji Calvillo. 2. History of lung cancer with suspected recurrence on the recent PET/CT imaging from 03-03-23. Imaging shows progression of defined viable neoplastic disease. Lung cancer was diagnosed in January 2020. Currently follows with Dr. Meraz, further information obtained from his most recent office note from 02/16/2023. Patient was found to have a left lower lobe nodule in January 2020. He had CT-guided biopsy done at that time at [facility] and developed pneumothorax postbiopsy requiring transfer to [facility] for further management. PET scan at [facility] was concerning for malignancy and patient had a left thoracoscopy with conversion tomini thoracotomy with wedge resection of the left lower lobe lung mass in 01/2020. 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 Patient completed radiation therapy to the left lower lung in 04/2020, has had no further therapy since that time. Has outpatient follow-up scheduled with Dr. Meraz soon; no oncology needs while inpatient, recommend close outpatient follow-up. 3. Leukocytosis mainly inflammatory due to PE ? WBC count 15 on admit, improved to normal range 10.6 thousand.. No infectious symptoms noted, patient afebrile and hemodynamically stable, low concern for infection. No need for antibiotic treatment. 4. Elevated lactic acid, resolved ? Lactate 2.3 on admit, resolved with IV fluids. 5. History of CAD status post stents,, PAD status post stent hyperlipidemia: Asmentioned above ? Continue home Plavix, holding home aspirin with patient on anticoagulation as noted above. Continue home statin. Chronic medical conditions: ? COPD, chronic hypoxic respiratory failure on home 3 L: Currently stable on home 3 L nasal cannula with good oxygen saturations, no evidence of COPD exacerbation. Continue home inhalers, daily low-dose prednisone and daily Levaquin. ? Anxiety/depression: Continue home duloxetine, Ativan 3 times daily as needed. ? Chronic pain: Continue home low-dose oxycodone as needed. ? BPH with LUTS: Continue home Flomax. DVT prophylaxis: Heparin drip CODE STATUS: DNR CCA, DNI Discharge medication reconciliation done. Discharge follow-up instructions completed. Discharge process discussed with the patient and all questions wereanswered to patient's satisfaction. Follow with PCP in 1 to 2 weeks Total time spent, exact 35 minutes on discharge meds reconciliation, examination, coordination of care with nurses and ancillary staff, review of imaging and blood test and discussion with the patient on follow-up instructions. Laboratory Results 03/26/23 03:41: Troponin I High Sens 22, B-Natriuretic Peptide 45.3 Clinical Impression(s) from Imaging Studies Chest CTA 03/25/23 13:05 IMPRESSION: 1. Pulmonary embolism in second branches of left lower lobe pulmonary artery. 2. Pleural-based cavitary lesion left lower lobe increased in size since previous exam concerning for malignancy corresponding to the PET/CT abnormality. 3. Spiculated lesions in the left lung again concerning for malignancy. 4. Scattered ill-defined densities some of them new since the previous exam. Electronically Signed: Lui Nolen MD at 14:30 EST , ADDENDUM: 03/25/23 4968 IMPRESSION: 1. Pulmonary embolism in second branches of left lower lobe pulmonary artery. 2. Pleural-based cavitary lesion left lower lobe increased in size since previous exam concerning for malignancy corresponding to the PET/CT abnormality. 3. Spiculated lesions in the left lung again concerning for malignancy. 4. Scattered ill-defined densities some of them new since the previous exam. N.B. : The above Results were Read Back by Lui Nolen MD to Randy Londono MD, and understanding confirmed on 03/25/2023 14:32:41 (ET). Electronically Signed: Lui Nolen MD at 14:30 EST , Echocardiogram 03/25/23 16:47 Interpretation Summary The estimated ejection fraction is 60 %. No evidence for diastolic dysfunction. Aortic sclerosis, no stenosis. Venous Doppler Study 03/25/23 22:13 Interpretation Summary Acute deep vein thrombosis is noted in the right posterior tibial vein. Acute deep vein thrombosis is noted in the left posterior tibial vein. Ordering Physician: Jacob Suazo Performed By: Andrés Hernandez RVT Clinical Impression(s) from Imaging Studies Chest CTA 03/25/23 13:05 IMPRESSION: 1. Pulmonary embolism in second branches of left lower lobe pulmonary artery. 2. Pleural-based cavitary lesion left lower lobe increased in size since previous exam concerning for malignancy corresponding to the PET/CT abnormality. 3. Spiculated lesions in the left lung again concerning for malignancy. 4. Scattered ill-defined densities some of them new since the previous exam. Medications at Discharge Home Medications aspirin 81 mg chewable tablet 81 mg PO QPM heart health 12/29/14 nitroglycerin 0.4 mg sublingual tablet 0.4 mg sublingual Q5M PRN Chest Pain 12/29/14 lorazepam 1 mg tablet (Ativan) 0.5 - 1 mg PO TID PRN Anxiety 07/09/20 polyethylene glycol 3350 17 gram oral powder packet (Miralax) 17 g PO DAILY PRN Constipation 07/09/20 acetaminophen 325 mg tablet (Tylenol) 650 mg PO Q4H PRN Pain 08/13/20 prednisone 10 mg tablet 10 mg PO QDAY #90 tabs 01/15/22 oxycodone 5 mg tablet 2.5 - 5 mg PO Q6H PRN PAIN AND BREATHING 02/05/22 levalbuterol tartrate 45 mcg/actuation aerosol inhaler 2 inh inhalation Q4H PRN shortness of breath or wheezing #15 grams 07/25/22 fluticasone propionate 230 mcg-salmeterol 21 mcg/actuation HFA inhaler (Advair HFA) 2 puff inhalation BID 08/07/22 atorvastatin 40 mg tablet 40 mg PO QHS cholesterol 03/25/23 duloxetine 30 mg capsule,delayed release 30 mg PO QPM DEPRESSION 03/25/23 lidocaine 4 % topical patch 1 patch topical DAILY 03/25/23 tamsulosin 0.4 mg capsule 0.4 mg PO QPM BLADDER/ PROSTATE 03/25/23 tiotropium bromide 2.5 mcg/actuation mist for inhalation (Spiriva Respimat) 2 puff inhalation DAILY copd 03/25/23 apixaban 5 mg (74 tabs) tablets in a dose pack ([employer] DVT-PE Treat 30D Start) 5 mg PO BID #74 tabs 03/27/23 clopidogrel 75 mg tablet 75 mg PO QPM 30 days #30 tabs 03/27/23 pseudoephedrine-guaifenesin ER 120 mg-1,200 mg tab,extend release 12hr (Mucus D)1 tab PO Q12H 1 week #14 tabs 03/27/23 Physical Exam Narrative Seen and examined. Patient normally on 3 L of oxygen which increased to 4 L on exertion at home. Does not use BiPAP or CPAP. Patient has mild occasional baseline cough and shortness of breath on exertion/dyspnea but it got worse moderate to severe cough, hemoptysis and dyspnea at rest yesterday. Physical exam: General: Alert, Oriented x3, Cooperative HEENT: Atraumatic, PERRLA, EOMI, Normocephalic. Hemoptysis has stopped. Oral: Oral mucosa moist. No Gingival or Mucosal Lesions/ Ulcerations Neck: Supple, No JVD, Negative Carotid Bruits Chest wall/Lungs: Surgical scar over left anterolateral area. Air entry diminished in bilateral lung bases. bilateral coarse crepitations better. Dyspnea and hemoptysis resolved. Cardiovascular: Sinus tachycardia with frequent PVCs, Normal S1, Normal S2, Nomurmurs Abdomen: Bowel Sounds Present, Soft, Non Tender, Non-Distended : No renal angle tenderness. No suprapubic tenderness. Extremities: No edema, Capillary Refill Less than 3 Seconds Skin: No rashes, No breakdown Musculoskeletal: No Tenderness to Palpation of Joints or Extremities Neurological: Cranial nerves II-XII grossly intact, DTR 2+/4. No acute focal neurological deficit. Psych/Mental Status: Normal Affect, Appropriate. Weight / BMI Weight Weight: 177 lb 11.081 oz Body Mass Index (BMI) 24.7 ABG / Lab / Microbiology Data 03/26/23 03:41 03/26/23 03:41 Laboratory: Laboratory Results - last 24 hr 03/26/23 03:41: Troponin I High Sens 22, B-Natriuretic Peptide 45.3 Radiography Diagnostic Testing: Radiology Impression Echocardiogram 03/25/23 16:47 Interpretation Summary The estimated ejection fraction is 60 %. No evidence for diastolic dysfunction. Aortic sclerosis, no stenosis. Ordering Physician: Jacob Suazo Referring Physician: Mei Cummins Performed By: Renetta Olivas RDCS, RVT Venous Doppler Study 03/25/23 22:13 Interpretation Summary Acute deep vein thrombosis is noted in the right posterior tibial vein. Acute deep vein thrombosis is noted in the left posterior tibial vein. Ordering Physician: Jacob Suazo Performed By: Andrés Hernandez, RVT D/C Instructions Discharge Diet: 2000 mg Sodium Diet Weight Bearing Status: Weight bearing as tolerated Call your doctor if you observe: Fever of 101 or Higher, Coldness, Increased Pain, Numbness or Tingling, Change in Color, Inability to urinate, Inability to have a bowel movement, Shortness of breath, Dizziness, Fainting spells, Swellingin the ankles, Chest pain, Prolonged hiccupping, Increased palpitations (irregular heartbeat) and Calf discomfort When: IN 2 WEEKS Meaningful Use Info Meaningful Use Diagnoses (Choose all that apply): VTE VTE Anticoag overlap given w/in hospital stay or rx'd at dc?: No Reason overlap not ordered, prescribed, or given for 5 days: Treatment Not Indicated Discharge Plan Admission Admit Date/Time: 03/26/23 11:57 Primary Reason for Your Visit: Acute left lower lobe pulmonary embolism with history of lung cancer. Attending Provider: Martin Zaragoza Primary Care Provider: Mei Cummins Consulting Providers: Jacob Suazo Instructions Additional Instructions / Restrictions: Patient needs to continue Eliquis most likely whole life as he has lung cancer. Follow-up supervisory aide Dr. Ji Calvillo [facility] within 2 weeks. Discharge Orders/Prescriptions Prescriptions: New Eliquis DVT-PE Treat 30D Start 5 mg (74 tabs) tablets,dose pack 5 mg PO BID Qty: 74 0RF Rx Instructions: 10 mg (2 tabs) twice daily for 7 days and then twice daily to continue. pseudoephedrine-guaifenesin [Mucus D] 120-1,200 mg tablet extended release 12 hr 1 tab PO Q12H 7 Days Qty: 14 0RF clopidogrel 75 mg Tablet 75 mg PO QPM 30 Days Qty: 30 2RF Continued oxycodone 5 mg tablet 2.5 - 5 mg PO Q6H PRN (Reason: PAIN AND BREATHING) fluticasone propion-salmeterol [Advair HFA] 230-21 mcg/actuation HFA aerosol inhaler 2 puff inhalation BID nitroglycerin 0.4 MG tablet 0.4 mg SL Q5M PRN (Reason: Chest Pain) polyethylene glycol 3350 [Miralax] 17 gram Powder In Packet 17 g PO DAILY PRN (Reason: Constipation) lorazepam [Ativan] 1 mg tablet 0.5 - 1 mg PO TID PRN (Reason: Anxiety) acetaminophen [Tylenol] 325 mg Tablet 650 mg PO Q4H PRN (Reason: Pain) atorvastatin 40 mg tablet 40 mg PO QHS duloxetine 30 mg capsule,delayed release(DR/EC) 30 mg PO QPM tamsulosin 0.4 mg capsule 0.4 mg PO QPM Spiriva Respimat 2.5 mcg/actuation mist 2 puff INHALATION DAILY Rx Instructions: USES AROUND NOON lidocaine 4 % adhesive patch,medicated 1 patch TOPICAL DAILY Rx Instructions: APPLY TO AFFECTED AREA FOR 12 HOURS, AND THEN TAKE OFF FOR 12 HOURS prednisone 10 mg tablet 10 mg PO QDAY Qty: 90 3RF Hold Instructions: Resume on 12/28/21. hold while on prednisone burst & taper levalbuterol tartrate 45 mcg/actuation HFA aerosol inhaler 2 inh inhalation Q4H PRN (Reason: shortness of breath or wheezing) Qty: 15 11RF Held aspirin 81 MG tablet,chewable 81 mg PO QPM Hold Instructions: Hold it while patient is taking Eliquis. Patient Comments: heart, blood thinner Discontinued clopidogrel 75 MG tablet 75 mg PO QPM guaifenesin [Mucinex] 1,200 mg Tablet Extended Release 12hr 1,200 mg PO BID levofloxacin 500 mg tablet 500 mg PO DAILY Rx Instructions: END DATE: 03/25/23 Referrals / Follow Up: Mei Cummins MD [Primary Care Provider] - 04/03/23 2:20 pm Salazar Meraz DO [Med Staff - Active Staff] - Within 1 Month (For hypercoagulable disease with pulmonary embolism, history of lung cancer.) Disposition Disposition (needs filled in before D/C Order can be placed): Home, Self Care Charges/Coding Visit Charges Inpatient E&M: 71056 Disch Hosp >30min 03/27/23 1235 <Electronically signed by Martin Zaragoza MD> Cosigner Signature (if applicable): CC: Dr. Felicity Wilkinson MD; Dr. Mei Cummins MD; Dr. Salazar Meraz DO; Dr.Prakash Nik MD~ Signed [facility] Work Phone: 1(190) 478-823601-25-2024 Progress note Author Martin Zaragoza [facility] March 26, 2023 12:47pm Note Date/Time March 26, 2023 7 :18am [facility] Medical Records Department [address] [place] [address] Progress Note - Hospitalist 03/26/23 0713 MR#: [id number] Acct: [id number] Name: OSWALDO CORLEY Rep #:[id number] : 1940 82 From: Martin Carr PCP: Dr. Mei Cummins MD Status:AD M IN Location: [place] [address] 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 (03/25/23) Other pulmonary embolism without acute cor pulmonale (03/25/23) Hemoptysis (03/25/23) Objective Data Objective Data Vital Signs: Vital Signs Temp Pulse Resp BP Pulse Ox O2 Del Method O2 Flow Rate 98.8 F 96 20 H 138/74 H 100 Nasal Cannula 3 03/26/23 04:20 03/26/23 04:20 03/26/23 04:20 03/26/23 04:20 03/26/23 04:20 03/26/23 04:29 03/26/23 04:29 Oxygen Flow Rate (L/min) 3 Oxygen Delivery Method Nasal Cannula Weight: 177 lb 11.081 oz Body Mass Index (BMI) 24.7 Intake & Output: Intake and Output for Last 24 Hours 03/24/23 03/25/23 03/26/23 23:59 23:59 23:59 Output Total 200 / 200 Balance -200 / -200 Lab / Micro Data 03/26/23 03:41 03/26/23 03:41 Labs: Laboratory Results - last 24 hr 03/25/23 13:00: WBC 15.6 H, RBC 4.91, Hgb 13.7, Hct 45.0, MCV 91.6, MCH 27.9, MCHC 30.4 L, RDW Std Deviation 51.6 H, RDW Coeff of Estelita 15.3 H, Plt Count 309, MPV 8.7, Immature Gran % (Auto) 0.400, Neut % (Auto) 92.4 H, Lymph % (Auto) 3.7 L, Posey % (Auto) 3.2, Eos % (Auto) 0.1, Baso % (Auto) 0.2, Absolute Neuts (auto)14.4 H, Absolute Lymphs (auto) 0.57 L, Nucleated RBC % 0, PT 13.1, INR 1.0, APTT27.1, Sodium 139, Potassium 4.5, Chloride 106, Carbon Dioxide 27.0, Anion Gap 6,BUN 18, Creatinine 1.03, Estim Creat Clear Calc 60.92, Est GFR (MDRD) Af Amer 89, Est GFR (MDRD) Non-Af 74, BUN/Creatinine Ratio 17.5, Glucose 125 H, Calcium 9.5, Total Bilirubin 0.50, AST 20, ALT 20, Alkaline Phosphatase 84, Total Protein 7.4, Albumin 3.4, Globulin 4.0, Albumin/Globulin Ratio 0.8 L 03/25/23 13:20: Lactic Acid 2.3 H* 03/25/23 18:06: Lactic Acid 1.0 03/25/23 21:46: APTT 78.2 H 03/26/23 03:41: WBC 10.6, RBC 4.01 L, Hgb 11.2 L, Hct 36.6 L, MCV 91.3, MCH 27.9, MCHC 30.6 L, RDW Std Deviation 51.6 H, RDW Coeff of Estelita 15.3 H, Plt Count 208, MPV 8.6, APTT 68.0 H, Sodium 139, Potassium 3.7, Chloride 106, Carbon Dioxide 30.0, Anion Gap 3 L, BUN 19 H, Creatinine 0.89, Estim Creat Clear Calc 70.51, Est GFR (MDRD) Af Amer 105, Est GFR (MDRD) Non-Af 87, BUN/Creatinine Ratio 21.3 H, Glucose 132 H, Calcium 8.5 Radiography Diagnostic Testing: Radiology Impression Chest CTA 03/25/23 13:05 IMPRESSION: 1. Pulmonary embolism in second branches of left lower lobe pulmonary artery. 2. Pleural-based cavitary lesion left lower lobe increased in size since previous exam concerning for malignancy corresponding to the PET/CT abnormality. 3. Spiculated lesions in the left lung again concerning for malignancy. 4. Scattered ill-defined densities some of them new since the previous exam. Electronically Signed: Lui Nolen MD at 14:30 EST , ADDENDUM: 03/25/23 1439 IMPRESSION: 1. Pulmonary embolism in second branches of left lower lobe pulmonary artery. 2. Pleural-based cavitary lesion left lower lobe increased in size since previous exam concerning for malignancy corresponding to the PET/CT abnormality. 3. Spiculated lesions in the left lung again concerning for malignancy. 4. Scattered ill-defined densities some of them new since the previous exam. N.B. : The above Results were Read Back by Lui Nolen MD to Randy Londono MD, and understanding confirmed on 03/25/2023 14:32:41 (ET). Electronically Signed: Lui Nolen MD at 14:30 EST , Rhythm Strip Rhythm Strip: Sinus Tach Rate: 144 Ectopy: PVC(s) (Occasional to rare) Physical Exam Narrative seen and examined. Patient normally on 3 L of oxygen which increased to 4 L on exertion at home. Does not use BiPAP or CPAP. Patient has mild occasional baseline cough and shortness of breath on exertion/dyspnea but it got worse moderate to severe cough, hemoptysis and dyspnea at rest yesterday. Physical exam: General: Alert, Oriented x3, Cooperative HEENT: Atraumatic, PERRLA, EOMI, Normocephalic Oral: Oral mucosa dry. No Gingival or Mucosal Lesions/ Ulcerations Neck: Supple, No JVD, Negative Carotid Bruits Chest wall/Lungs: Surgical scar over left anterolateral area. Air entry diminished in bilateral lung bases. bilateral coarse Crepitations/wheezing. Hemoptysis several teaspoon. Dyspnea at rest. Cardiovascular: Sinus tachycardia with frequent PVCs, Normal S1, Normal S2, Nomurmurs Abdomen: Bowel Sounds Present, Soft, Non Tender, Non-Distended : No renal angle tenderness. No suprapubic tenderness. Extremities: No edema, Capillary Refill Less than 3 Seconds Skin: No rashes, No breakdown Musculoskeletal: No Tenderness to Palpation of Joints or Extremities Neurological: Cranial nerves II-XII grossly intact, DTR 2+/4. No acute focal neurological deficit. Psych/Mental Status: Normal Affect, Appropriate. Assessment & Plan Assessment/Plan (1) Pulmonary embolus: (2) Pulmonary neoplasm: (3) Major hemoptysis: PLAN: Plan Patient is an 82-year-old male who presented to [facility] ED on03/25/2023 with hemoptysis, shortness of breath and dyspnea. 1. Acute left lower lobe PE, off left lower lobe pulmonary artery: CT chest individually reviewed. Patient tachycardic, dyspnea at rest and tachypneic in the morning. Patient has hemoptysis but will continue anticoagulant. IV heparin changed to enoxaparin. Troponin and BNP ordered. 2D echo is ordered. As patient is still short of breath therefore patient observation status needs to change to inpatient status. 2. History of lung cancer with suspected recurrence on the recent PET/CT imaging from 03-03-23. Imaging shows progression of defined viable neoplastic disease. Lung cancer was diagnosed in January 2020. Currently follows with Dr. Meraz, further information obtained from his most recent office note from 02/16/2023. Patient was found to have a left lower lobe nodule in January 2020. He had CT-guided biopsy done at that time at [facility] and developed pneumothorax postbiopsy requiring transfer to [facility] for further management. PET scan at [facility] was concerning for malignancy and patient had a left thoracoscopy with conversion tomini thoracotomy with wedge resection of the left lower lobe lung mass in 01/2020. 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 Patient completed radiation therapy to the left lower lung in 04/2020, has had no further therapy since that time. Has outpatient follow-up scheduled with Dr. Meraz soon; no oncology needs while inpatient, recommend close outpatient follow-up. 3. Leukocytosis mainly inflammatory due to PE ? WBC count 15 on admit, improved to normal range 10.6 thousand.. No infectious symptoms noted, patient afebrile and hemodynamically stable, low concern for infection. No need for antibiotic treatment. 4. Elevated lactic acid, resolved ? Lactate 2.3 on admit, resolved with IV fluids. 5. History of CAD, hyperlipidemia ? Continue home Plavix, holding home aspirin with patient on anticoagulation as noted above. Continue home statin. Chronic medical conditions: ? COPD, chronic hypoxic respiratory failure on home 3 L: Currently stable on home 3 L nasal cannula with good oxygen saturations, no evidence of COPD exacerbation. Continue home inhalers, daily low-dose prednisone and daily Levaquin. ? Anxiety/depression: Continue home duloxetine, Ativan 3 times daily as needed. ? Chronic pain: Continue home low-dose oxycodone as needed. ? BPH with LUTS: Continue home Flomax. DVT prophylaxis: Heparin drip CODE STATUS: DNR CCA, DNI Clinical Impression(s) from Imaging Studies Chest CTA 03/25/23 13:05 IMPRESSION: 1. Pulmonary embolism in second branches of left lower lobe pulmonary artery. 2. Pleural-based cavitary lesion left lower lobe increased in size since previous exam concerning for malignancy corresponding to the PET/CT abnormality. 3. Spiculated lesions in the left lung again concerning for malignancy. 4. Scattered ill-defined densities some of them new since the previous exam. Charges/Coding Visit Charges Inpatient E&M: 34249 Subs Hosp L2 03/26/23 1247 <Electronically signed by Martin Zaragoza MD> Cosigner Signature (if applicable): CC: ~ Signed [facility] Work Phone: 1(380) 841-526501-25-2024 Progress note Author Sushila Rivers [facility] March 26, 2023 4:11am Note Date/Time March 26, 2023 4 :11am [facility] Medical Records Department [address] [place] [address] Progress Note - Hospitalist 03/26/23409 MR#: [id number] Acct: [id number] Name: OSWALDO CORLEY Rep #:[id number] : 1940 82 From: Sushila Rivers MD PCP: Dr. Mei Cummins MD Status:AD [facility] Location: [place] [address] Hospitalist Note Patient with ongoing severe bouts of coughing, asking for regimen. Will d/c mucinex and add guaf/codeine regimen to see if improved cough control. 03/26/23410 <Electronically signed by Sushila Rivers MD> Cosigner Signature (if applicable): CC: ~ Signed [facility] Work Phone: 1(190) 846-344501-25-2024 History and physical note Author Jacob Suazo [facility] March 25, 2023 10:13pm Note Date/Time March 25, 2023 3 :13pm [facility] Medical Records Department [address] [place] [address] H&P Exam - Hospitalist 03/25/23 1511 MR#: [id number] Acct: [id number] Name: OSWALDO CORLEY Rep #:[id number] : 1940 82 From: Jacob womack DO PCP: Dr. Mei Cummins MD Status:AD M [facility] Location: [place] [address] HPI - General General Date of Admission: 03/25/23 Date of Service: 03/25/23 Chief Complaint: Hemoptysis HPI Narrative OSWALDO CORLEY, is a 82 M who presented to [facility] ED on 03/25/2023 with sarika hemoptysis. Patient seen at bedside in the ED, present. Patient was sitting up comfortably in bed, conversing normally, no acute distress during my interview. He did have some dried blood noted around his lips. Was satting well on 3 L nasal cannula, which is his baseline oxygen requirement. Patient states that he intermittently has had blood-tinged sputum over the past few weeks, but this morning he coughed up several spoonfuls of sarika blood. He has never had hemoptysis like that before. He otherwise deniesany chest pain or shortness of breath. Denies any fevers or chills. Denies anyother pain or discomfort at this time. No other acute concerns. Patient notably was found to have possible recurrence of his lung cancer on PET CT imaging from 03/03/2023. Imaging showed apparent interim progression of defined viable neoplastic disease. His previous lung cancer history is noted below. Patient was found on CTA chest in the ED to have a PE in the second branches of left lower lobe pulmonary artery. CTA chest also demonstrated spiculated lesions in the left lung as well as a pleural-based cavitary lesion in the left lower lobe increased in size from previous concerning for malignancy. Dr. Londono discussed with radiology if there was concern for the hemoptysis coming from the lung mass, and per Dr. Londono the radiologist told himthat the bleeding appeared to be coming from the area where the PE was, which was much more peripheral to the suspected lung cancer. With regard to his lung cancer history, patient was diagnosed with lung cancer back in January 2020. Currently follows with Dr. Meraz, further information obtained from his most recent office note from 02/16/2023. Patient was found tohave a left lower lobe nodule in January 2020. He had CT-guided biopsy done atthat time at [facility] and developed pneumothorax postbiopsy requiring transfer to [facility] for further management. PET scan at [facility] was concerning for malignancy and patient had a left thoracoscopy with conversion to mini thoracotomy with wedge resection of the left lower lobe lung mass in 01/2020. Pathology from theresection showed moderately differentiated squamous cell carcinoma. Patient completed radiation therapy to the left lower lung in 04/2020, has had no furthertherapy since that time. [facility] Medical History (Updated 03/25/23 @ 17:05 by Lillian Otoole) Abrasion Anxiety Benign essential HTN Bronchiectasis CAD (coronary artery disease) Cancer Cardiology follow-up encounter Chest pain Chronic cough Chronic hypoxemic respiratory failure COPD (chronic obstructive pulmonary disease) Coronary artery disease Depression Former smoker High cholesterol History of steroid therapy History of stress test History of weight loss HLD (hyperlipidemia) Injury of back Myocardial infarct No pertinent family history Nocturnal hypoxemia On home oxygen therapy Prostate CA Prostate disease Shortness of breath on exertion Stage 3 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 Syncope Tobacco dependence in remission Wears dentures Wears glasses Home Medications aspirin 81 mg chewable tablet 81 mg PO QPM heart health 12/29/14 [History Last Taken 03/24/23] nitroglycerin 0.4 mg sublingual tablet 0.4 mg sublingual Q5M PRN Chest Pain 12/29/14 [History Last Taken 1 Week Ago ~07/02/20] clopidogrel 75 mg tablet 75 mg PO QPM blood thinner 04/19/16 [History Last Taken 03/24/23] guaifenesin 1,200 mg tablet, extended release 12 hr (Mucinex) 1,200 mg PO BID congestion 07/09/20 [History Last Taken 03/24/23] lorazepam 1 mg tablet (Ativan) 0.5 - 1 mg PO TID PRN Anxiety 07/09/20 [History Last Taken 03/25/23] polyethylene glycol 3350 17 gram oral powder packet (Miralax) 17 g PO DAILY PRN Constipation 07/09/20 [History Last Taken 03/24/23] acetaminophen 325 mg tablet (Tylenol) 650 mg PO Q4H PRN Pain 08/13/20 [History Last Taken 03/24/23] prednisone 10 mg tablet 10 mg PO QDAY #90 tabs 01/15/22 [Rx Last Taken 03/25/23] oxycodone 5 mg tablet 2.5 - 5 mg PO Q6H PRN PAIN AND BREATHING 02/05/22 [History Last Taken 03/25/23] levalbuterol tartrate 45 mcg/actuation aerosol inhaler 2 inh inhalation Q4H PRN shortness of breath or wheezing #15 grams 07/25/22 [Rx Last Taken 03/25/23] fluticasone propionate 230 mcg-salmeterol 21 mcg/actuation HFA inhaler (Advair HFA) 2 puff inhalation BID 08/07/22 [History Last Taken 03/25/23] atorvastatin 40 mg tablet 40 mg PO QHS cholesterol 03/25/23 [History Last Taken 03/24/23] duloxetine 30 mg capsule,delayed release 30 mg PO QPM DEPRESSION 03/25/23 [History Last Taken 03/24/23] levofloxacin 500 mg tablet 500 mg PO DAILY ANTIBIOTIC 03/25/23 [History Last Taken 03/24/23] lidocaine 4 % topical patch 1 patch topical DAILY 03/25/23 [History Last Taken 03/25/23] tamsulosin 0.4 mg capsule 0.4 mg PO QPM BLADDER/ PROSTATE 03/25/23 [History Last Taken 03/25/23] tiotropium bromide 2.5 mcg/actuation mist for inhalation (Spiriva Respimat) 2 puff inhalation DAILY copd 03/25/23 [History Last Taken 03/24/23] Allergy/AdvReac Type Severity Reaction Status Date / Time isosorbide [From Imdur] Allergy Other-patient Verified 03/25/23 12:50 blacks out Family History Other No pertinent family history Surgical History (Updated 03/25/23 @ 17:05 by Lillian Otoole) Hx of CABG Hx of CABG Hx of heart artery stent Hx of pneumonectomy Hx of transurethral resection of prostate No pertinent past surgical history Social History Smoking Status: Former smoker Tobacco: How many years used: 45 Electronic Cigarette Use: not used how long ago did patient quit smokin, second hand exposure: Yes alcohol intake: never substance use type: does not use ROS Constitutional Constitutional: Denies chills, fatigue, fever(s) or weakness Eyes Eyes: Denies change in vision ENT HEENT: Denies dysphagia, epistaxis, nasal congestion, nasal discharge, sinus pressure or sore throat Cardiovascular Cardiovascular: Denies chest pain, dyspnea on exertion, edema, lightheadedness, orthopnea, palpitations or rapid heart rate Respiratory/Chest Respiratory/Chest: Reports hemoptysis; Denies cough, productive cough, shortnessof breath at rest, shortness of breath with exertion or wheezing Gastrointestinal Gastrointestinal: Denies abdominal pain, constipation, diarrhea, nausea or vomiting Genitourinary Genitourinary: Denies dysuria Musculoskeletal Musculoskeletal: Denies arthralgias or back pain Neurologic Neurologic: Denies dizziness, focal weakness or headache(s) Vital Signs Vital Signs Vital Signs: 03/25/23 12:50 03/25/23 12:54 03/25/23 12:54 Temperature 97.6 F L 97.8 F Temperature Source Temporal Temporal Pulse Rate 131 H 130 H Respiratory Rate 16 24 H Respiratory Effort Short of Breath Labored Pursed Lip Respiratory Depth Shallow Respiratory Pattern Tachypnea Blood Pressure 139/81 H 139/81 H Blood Pressure Mean 100 100 Pulse Ox 97 97 Oxygen Delivery Method Nasal Cannula Nasal Cannula Nasal Cannula Oxygen Flow Rate (L/min) 3 3 3 03/25/23 15:11 Temperature Temperature Source Pulse Rate 81 Respiratory Rate 16 Respiratory Effort Respiratory Depth Respiratory Pattern Blood Pressure 117/73 Blood Pressure Mean 87 Pulse Ox 98 Oxygen Delivery Method Room Air Oxygen Flow Rate (L/min) Weight Weight: 79.4 kg Body Mass Index (BMI) 24.4 Physical Exam Const alert, oriented x3, no apparent distress and average body habitus Constitutional Narrative: Pleasant elderly male, healthy appearing, sitting up comfortably in bed, conversing normally, no acute distress. General Appearance: cooperative and comfortable HEENT normocephalic, head/scalp atraumatic, hearing grossly normal bilaterally, nasal mucous membranes and turbinates normal and moist oral mucous membranes HEENT Narrative: Small amount of dried blood noted around patient's lips. Eyes PERRL, EOMs intact bilaterally and conjunctivae normal Neck full ROM, no lymphadenopathy and supple Lymph Lymphatic: no lymphadenopathy noted Chest inspection of chest normal Resp normal respiratory effort and no use of accessory muscles Resp Narrative: Satting well on 3 L nasal cannula, no increased work of breathing noted. Mildlydecreased breath sounds noted in left lung base. No wheezing or crackles noted. Cardio regular rate, regular rhythm, no murmurs and peripheral pulses 2+ throughout GI normal to inspection, nondistended, normoactive bowel sounds, soft to palpation,non-tender and non-distended Back/Spine normal ROM Extremity normal to inspection, full ROM and no pedal edema Skin no rashes or lesions noted Neuro moves all extremities and no focal motor deficits Speech: speech normal Psych mental status grossly normal Results Lab / Micro Data 03/25/23 13:00 03/25/23 13:00 Labs: Laboratory Results - last 24 hr 03/25/23 13:00: WBC 15.6 H, RBC 4.91, Hgb 13.7, Hct 45.0, MCV 91.6, MCH 27.9, MCHC 30.4 L, RDW Std Deviation 51.6 H, RDW Coeff of Estelita 15.3 H, Plt Count 309, MPV 8.7, Immature Gran % (Auto) 0.400, Neut % (Auto) 92.4 H, Lymph % (Auto) 3.7 L, Posey % (Auto) 3.2, Eos % (Auto) 0.1, Baso % (Auto) 0.2, Absolute Neuts (auto)14.4 H, Absolute Lymphs (auto) 0.57 L, Nucleated RBC % 0, PT 13.1, INR 1.0, APTT27.1, Sodium 139, Potassium 4.5, Chloride 106, Carbon Dioxide 27.0, Anion Gap 6,BUN 18, Creatinine 1.03, Estim Creat Clear Calc 60.92, Est GFR (MDRD) Af Amer 89, Est GFR (MDRD) Non-Af 74, BUN/Creatinine Ratio 17.5, Glucose 125 H, Calcium 9.5, Total Bilirubin 0.50, AST 20, ALT 20, Alkaline Phosphatase 84, Total Protein 7.4, Albumin 3.4, Globulin 4.0, Albumin/Globulin Ratio 0.8 L 03/25/23 13:20: Lactic Acid 2.3 H* Rhythm Strip Rhythm Strip: Sinus Tach Rate: 144 Ectopy: PVC(s) (Occasional to rare) Imagaing Radiology Impression Chest CTA 03/25/23 13:05 IMPRESSION: 1. Pulmonary embolism in second branches of left lower lobe pulmonary artery. 2. Pleural-based cavitary lesion left lower lobe increased in size since previous exam concerning for malignancy corresponding to the PET/CT abnormality. 3. Spiculated lesions in the left lung again concerning for malignancy. 4. Scattered ill-defined densities some of them new since the previous exam. Electronically Signed: Lui Nolen MD at 14:30 EST , ADDENDUM: 03/25/23 1439 IMPRESSION: 1. Pulmonary embolism in second branches of left lower lobe pulmonary artery. 2. Pleural-based cavitary lesion left lower lobe increased in size since previous exam concerning for malignancy corresponding to the PET/CT abnormality. 3. Spiculated lesions in the left lung again concerning for malignancy. 4. Scattered ill-defined densities some of them new since the previous exam. N.B. : The above Results were Read Back by Lui Nolen MD to Randy Londono MD, and understanding confirmed on 03/25/2023 14:32:41 (ET). Electronically Signed: Lui Nolen MD at 14:30 EST , Assessment & Plan Assessment/Plan (1) Pulmonary embolus: (2) Pulmonary neoplasm: (3) Major hemoptysis: PLAN: Plan Patient is an 82-year-old male who presented to [facility] ED on03/25/2023 with hemoptysis. 1. Acute left lower lobe PE, low risk; hemoptysis CTA chest on admit showed left lower lobe PE. Tachycardic to 130s on admit but BP stable, good oxygen saturations on home oxygen requirements, no tachypnea noted. Also presented with sarika hemoptysis, which resolved in the ED. Hemoglobin 13.7 on admit, at baseline. ? Admit under observation status to PCU. Continue heparin drip. Monitor closely for recurrence of hemoptysis. Follow-up a.m. CBC. Echo ordered. Venous Doppler study ordered. If patient remains stable tomorrow, likely okay to transition to DOAC in preparation for discharge. 2. History of lung cancer with suspected recurrence ? See HPI for further details regarding the patient's cancer history. Unfortunately appears to have recurrence of lung cancer noted on recent PET CT scan from 03/03/2023. Has outpatient follow-up scheduled with Dr. Lizzy otero; no oncology needs while inpatient, recommend close outpatient follow-up. 3. Leukocytosis ? WBC count 15 on admit. Suspect due to acute stress state with mild hemoconcentration. No infectious symptoms noted, patient afebrile and hemodynamically stable, low concern for infection. No need for antibiotic treatment. Follow-up a.m. CBC. 4. Elevated lactic acid, resolved ? Lactate 2.3 on admit, resolved with IV fluids. 5. History of CAD, hyperlipidemia ? Continue home Plavix, holding home aspirin with patient on anticoagulation as noted above. Continue home statin. Chronic medical conditions: ? COPD, chronic hypoxic respiratory failure on home 3 L: Currently stable on home 3 L nasal cannula with good oxygen saturations, no evidence of COPD exacerbation. Continue home inhalers, daily low-dose prednisone and daily Levaquin. ? Anxiety/depression: Continue home duloxetine, Ativan 3 times daily as needed. ? Chronic pain: Continue home low-dose oxycodone as needed. ? BPH with LUTS: Continue home Flomax. DVT prophylaxis: Heparin drip CODE STATUS: DNR CCA, DNI Expected disposition: Home, 1 to 2 days Total clinical time spent by myself addressing the patient's medical issues, reviewing all the data, and collaborating with patient's care team: 55 minutes. Charges/Coding Visit Charges Inpatient E&M: 84444 Init Hosp L2 03/25/23 2213 <Electronically signed by Jacob Suazo DO> Cosigner Signature (if applicable): CC: Dr. Jacob Suazo DO; Dr. Mei Cummins MD~ Signed [facility] Work Phone: 1(256) 820-224101-24-2024 Discharge summary Author Randy Londono [facility] March 25, 2023 3:37pm Note Date/Time March 25, 2023 1 :14pm [facility] Medical Records Department [address] [place] [address] Emergency Department Summary 03/25/23 MR#: [id number] Acct: [id number] Name: OSWALDO CORLEY Rep #:[id number] : 1940 82 From: Randy Londono MD PCP: Dr. Mei Cummins MD Status:AD M IN Location: [place] [address] HPI History of Present Illness Chief Complaint: Shortness of Breath Detail of Chief Complaint: Dyspnea and sarika hemoptysis Informant: patient and spouse/S.O. Onset/Context/Timing Onset: Hours (Approximately 3 hours ago.) Context: Sudden Onset Timing: Continuous Quality: Shortness of breath and cough. Sarika blood Location: Respiratory Current Severity: Moderate Worsened by: Dyspnea on exertion. Patient apparently has 3 new nodules near site of ryland Relieved by: Nothing Associated Symptoms Associated Symptoms: Dyspnea and dyspnea on exertion Narrative Narrative: Patient is a 82-year-old male presents with sarika hemoptysis, shortness of breath, dyspnea on exertion that started 3 hours ago. He denies fever, chills night sweats. He had bronchoscopy performed several years ago and had a nodule. The procedure had complications necessitating transfer to [facility]. He was cared for by Dr. Oliverio Herrmann. He had recent follow-up studies that revealed 3 new nodules near the surgical site and a nodule on the opposite side. Patient is presently on a baby aspirin and Plavix. He is on no anticoagulant. He is on Plavix because of his heart. He denies upper respiratory tract infectious symptoms. He denies headache, visual, ocular auditory symptoms. Denies bleeding of his gums. He denies bruising easily. He denies abdominal pain, nausea, vomiting or diarrhea. He denies dysuria, frequency, urgency or hematuria. He denies bruising easily or bleeding easily. He does complain of swelling of his left lower extremity status post surgery. He denies prior history of VTE. Prior similar symptoms: No Recent Illness/Hospitalization: No PFSH PFSH Medical History Abrasion Anxiety Benign essential HTN Bronchiectasis CAD (coronary artery disease) Cancer Cardiology follow-up encounter Chest pain Chronic cough Chronic hypoxemic respiratory failure COPD (chronic obstructive pulmonary disease) Former smoker High cholesterol History of steroid therapy History of stress test History of weight loss HLD (hyperlipidemia) Injury of back No pertinent family history Nocturnal hypoxemia On home oxygen therapy Prostate CA Prostate disease Shortness of breath on exertion Stage 3 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 Syncope Tobacco dependence in remission Wears dentures Wears glasses Home Medications aspirin 81 mg chewable tablet 81 mg PO QPM heart health 12/29/14 [History Last Taken 03/24/23] nitroglycerin 0.4 mg sublingual tablet 0.4 mg sublingual Q5M PRN Chest Pain 12/29/14 [History Last Taken 1 Week Ago ~07/02/20] clopidogrel 75 mg tablet 75 mg PO QPM blood thinner 04/19/16 [History Last Taken 03/24/23] guaifenesin 1,200 mg tablet, extended release 12 hr (Mucinex) 1,200 mg PO BID congestion 07/09/20 [History Last Taken 03/24/23] lorazepam 1 mg tablet (Ativan) 0.5 - 1 mg PO TID PRN Anxiety 07/09/20 [History Last Taken 03/25/23] polyethylene glycol 3350 17 gram oral powder packet (Miralax) 17 g PO DAILY PRN Constipation 07/09/20 [History Last Taken 03/24/23] acetaminophen 325 mg tablet (Tylenol) 650 mg PO Q4H PRN Pain 08/13/20 [History Last Taken 03/24/23] prednisone 10 mg tablet 10 mg PO QDAY #90 tabs 01/15/22 [Rx Last Taken 03/25/23] oxycodone 5 mg tablet 2.5 - 5 mg PO Q6H PRN PAIN AND BREATHING 02/05/22 [History Last Taken 03/25/23] levalbuterol tartrate 45 mcg/actuation aerosol inhaler 2 inh inhalation Q4H PRN shortness of breath or wheezing #15 grams 07/25/22 [Rx Last Taken 03/25/23] fluticasone propionate 230 mcg-salmeterol 21 mcg/actuation HFA inhaler (Advair HFA) 2 puff inhalation BID 08/07/22 [History Last Taken 03/25/23] atorvastatin 40 mg tablet 40 mg PO QHS cholesterol 03/25/23 [History Last Taken 03/24/23] duloxetine 30 mg capsule,delayed release 30 mg PO QPM DEPRESSION 03/25/23 [History Last Taken 03/24/23] levofloxacin 500 mg tablet 500 mg PO DAILY ANTIBIOTIC 03/25/23 [History Last Taken 03/24/23] lidocaine 4 % topical patch 1 patch topical DAILY 03/25/23 [History Last Taken 03/25/23] tamsulosin 0.4 mg capsule 0.4 mg PO QPM BLADDER/ PROSTATE 03/25/23 [History Last Taken 03/25/23] tiotropium bromide 2.5 mcg/actuation mist for inhalation (Spiriva Respimat) 2 puff inhalation DAILY copd 03/25/23 [History Last Taken 03/24/23] Allergy/AdvReac Type Severity Reaction Status Date / Time isosorbide [From Imdur] Allergy Other-patient Verified 03/25/23 12:50 blacks out Family History Other No pertinent family history Surgical History Hx of CABG Hx of heart artery stent Hx of pneumonectomy Hx of transurethral resection of prostate No pertinent past surgical history Social History Smoking Status: Former smoker Tobacco: How many years used: 45 Electronic Cigarette Use: not used how long ago did patient quit smokin, second hand exposure: Yes alcohol intake: never substance use type: does not use ROS ROS ED Constitutional Constitutional ED: Denies chills, fever(s), subjective or sweats Eyes Eyes: Denies blurry vision or change in vision ENT ENT ED: Denies ear pain, rhinorrhea or sore throat Cardiovascular Cardiovascular: Denies chest pain, orthopnea, palpitations or paroxysmal nocturnal dyspnea Respiratory/Chest Respiratory/Chest: Reports cough, dyspnea, dyspnea on exertion and sputum; Denies orthopnea or paroxysmal nocturnal dyspnea Gastrointestinal Gastrointestinal: Denies abdominal pain, melena, nausea or vomiting Genitourinary Genitourinary ED: Denies dysuria or hematuria Musculoskeletal Musculoskeletal: Denies arthralgias, back pain or myalgias Integumentary Denies rash Neurologic Neurologic: Denies headache(s) or weakness Psychiatric Psychiatric: Reports anxiety Endocrine Endocrinology: Denies cold intolerance or heat intolerance Hematologic/Lymphatic Hematologic/Lymphatic: Reports systems reviewed and no addt'l complaints, exceptas documented EXAM Physical Exam Const Vital Signs: 03/25/23 12:50 03/25/23 12:54 03/25/23 12:54 Temperature 97.6 F L 97.8 F Temperature Source Temporal Temporal Pulse Rate 131 H 130 H Respiratory Rate 16 24 H Respiratory Effort Short of Breath Labored Pursed Lip Respiratory Depth Shallow Respiratory Pattern Tachypnea Blood Pressure 139/81 H 139/81 H Blood Pressure Mean 100 100 Pulse Ox 97 97 Oxygen Delivery Method Nasal Cannula Nasal Cannula Nasal Cannula Oxygen Flow Rate (L/min) 3 3 3 03/25/23 15:11 Temperature Temperature Source Pulse Rate 81 Respiratory Rate 16 Respiratory Effort Respiratory Depth Respiratory Pattern Blood Pressure 117/73 Blood Pressure Mean 87 Pulse Ox 98 Oxygen Delivery Method Nasal Cannula Oxygen Flow Rate (L/min) 4 Positive well nourished, well developed and obese Constitutional Narrative: Patient is in respiratory distress breathing more rapidly than 24 times a minute. He has minimal use of accessory muscle. He is tachycardic with a narrow complex noted on the monitor with a rate of 144. Patient has sarika hemoptysis. General Appearance ED: well developed; Negative for cyanotic, diaphoretic, NAD or pallor Nutritional Appearance: obese HEENT Reports moist mucous membranes HEENT Narrative: Blood noted posterior pharynx. Uvula midline. No deviation tongue with protrusion. Eyes PERRL and EOMs intact bilaterally General Eye ED: Negative for pale conjunctiva or scleral icterus Neck no lymphadenopathy, supple and no JVD Chest Wall inspection of chest normal and palpation of chest normal Resp No normal respiratory effort and clear to auscultation bilaterally Cardio regular rhythm, S1 normal heart sound, S2 normal heart sound and no murmurs Rate: tachycardic GI normal to inspection, nondistended, normoactive bowel sounds, non-tender, non-distended and no masses; Negative for hepatosplenomegaly Back/Spine General Back: CVA tenderness Thoracic Spine / Upper Back: Negative for thoracic spinal tenderness Lumbar Spine / Lower Back: Negative for lumbar spinal tenderness Extremity Extremity Narrative: Slight edema left lower extremity, which is chronic. Neuro oriented x3, CN's II-XII intact bilaterally and no sensory deficits noted Sensorium / Orientation: alert Psych mental status grossly normal Skin no rashes or lesions noted and no wounds General Skin Exam: Negative for jaundice or pallor MDM MDM MDM Narrative Medical decision making narrative: With dyspnea that started abruptly with him options need to rule out PE. Also need to consider rate malignancy with erosion into pulmonary vessel. This may also represent pneumonia and difficulty clotting since he is on aspirin and Plavix. Will obtain CTA and appropriate blood work. Will also review prior records. History & Record Review Additional record(s) reviewed:: Prior ED visit and Prior labs Lab Data Attestation: I reviewed the patient's lab results. Lab results narrative: White count elevated 15.6 with shift. There is no bandemia. Electrolyte panel is unremarkable. Glucose is 125 with a normal CO2 anion gap. Hepatic panel is normal. Labs: Laboratory Results - last 24 hr 03/25/23 03/25/23 13:00 13:20 WBC 15.6 H RBC 4.91 Hgb 13.7 Hct 45.0 MCV 91.6 MCH 27.9 MCHC 30.4 L RDW Std Deviation 51.6 H RDW Coeff of Estelita 15.3 H Plt Count 309 MPV 8.7 Immature Gran % (Auto) 0.400 Neut % (Auto) 92.4 H Lymph % (Auto) 3.7 L Posey % (Auto) 3.2 Eos % (Auto) 0.1 Baso % (Auto) 0.2 Absolute Neuts (auto) 14.4 H Absolute Lymphs (auto) 0.57 L Nucleated RBC % 0 PT 13.1 INR 1.0 APTT 27.1 Sodium 139 Potassium 4.5 Chloride 106 Carbon Dioxide 27.0 Anion Gap 6 BUN 18 Creatinine 1.03 Estim Creat Clear Calc 60.92 Est GFR (MDRD) Af Amer 89 Est GFR (MDRD) Non-Af 74 BUN/Creatinine Ratio 17.5 Glucose 125 H Lactic Acid 2.3 H* Calcium 9.5 Total Bilirubin 0.50 AST 20 ALT 20 Alkaline Phosphatase 84 Total Protein 7.4 Albumin 3.4 Globulin 4.0 Albumin/Globulin Ratio 0.8 L Radiography Diagnostic Testing: Clinical Impression(s) from Imaging Studies Chest CTA 03/25/23 13:05 IMPRESSION: 1. Pulmonary embolism in second branches of left lower lobe pulmonary artery. 2. Pleural-based cavitary lesion left lower lobe increased in size since previous exam concerning for malignancy corresponding to the PET/CT abnormality. 3. Spiculated lesions in the left lung again concerning for malignancy. 4. Scattered ill-defined densities some of them new since the previous exam. Electronically Signed: Lui Nolen MD at 14:30 EST , ADDENDUM: 03/25/23 1439 IMPRESSION: 1. Pulmonary embolism in second branches of left lower lobe pulmonary artery. 2. Pleural-based cavitary lesion left lower lobe increased in size since previous exam concerning for malignancy corresponding to the PET/CT abnormality. 3. Spiculated lesions in the left lung again concerning for malignancy. 4. Scattered ill-defined densities some of them new since the previous exam. N.B. : The above Results were Read Back by Lui Nolen MD to Randy Londono MD, and understanding confirmed on 03/25/2023 14:32:41 (ET). Electronically Signed: Lui Nolen MD at 14:30 EST , Rhythm Strip Rhythm Strip: Sinus Tach Rate: 144 Ectopy: PVC(s) (Occasional to rare) EKG Initial EKG: Attestation: I personally reviewed and interpreted this EKG as follows: Interpretation: Sinus Tachycardia (Rate is 130. There are premature ventricular complexes noted. Parables 128 ms. QS duration 70 ms. QT duration 294 ms. Coggon is normal. There are nonseptic changes which may be artifact due to his breathing.) Management Discussion w/another healthcare provider: Hospitalist (Spoke with Dr. Terrell Suazo regarding patient. Plan is admission to PCU. He was made aware of patient's history, physical and test results.) Treatment and Re-Evaluation :: Patient and his were informed of test results. He is no longer tachypneic. He is no longer in respiratory distress. Plan is anticoagulation with heparin. Patient will need to be observed since he has sarika hemoptysis. Presently he is no longer coughing sarika blood. Critical Care Time Critical Care Time: Yes Critical care time (excluding procedures): 30-74 minutes (31), Including time spent: (History, physical, documentation, independent or potation of laboratory results initiation of therapy, review of outside records), Discussing w/Patient &/or Family/Shuttle Preparation Supervisor, Discussing w/Consultants and Arranging Admission or Transfer Discharge Plan Dx/Rx/DC Orders Clinical Impression: Pulmonary embolus, Pulmonary cavitary lesion, Benign essential HTN, COPD with acute exacerbation, Major hemoptysis, Acidosis, lactic, Sinus tachycardia by electrocardiogram, Pulmonary neoplasm, History of coronary artery disease Disposition Disposition: Acute Care Hospital [facility] What to do if you have Problems For any increased pain, shortness of breath, bleeding, nausea or vomiting, chestpain, or any unexpected problems, contact your Primary Care Provider. Call [facility] ([phone]) or report to the closest Emergency Room. Call 911 if necessary. 03/25/23 1532 <Electronically signed by Randy Londono MD> Cosigner Signature (if applicable): CC: Dr. Mei Cummins MD ~ Signed [facility] Work Phone: [phone] 201-916801-24-2024 Discharge summary Author Randy [facility] March 25, 2023 3:37pm Note Date/Time March 25, 2023 1 :14pm [facility] Medical Records Department [address] [place] [address] Emergency Department Summary 03/25/23 MR#: [id number] Acct: [id number] Name: OSWALDO CORLEY Rep #:[id number] : 1940 82 From: Randy Londono MD PCP: Dr. Mei Cummins MD Status:AD M IN Location: [address] History of Present Illness Chief Complaint: Shortness of Breath Detail of Chief Complaint: Dyspnea and sarika hemoptysis Informant: patient and spouse/S.O. Onset/Context/Timing Onset: Hours (Approximately 3 hours ago.) Context: Sudden Onset Timing: Continuous Quality: Shortness of breath and cough. Sarika blood Location: Respiratory Current Severity: Moderate Worsened by: Dyspnea on exertion. Patient apparently has 3 new nodules near site of ryland Relieved by: Nothing Associated Symptoms Associated Symptoms: Dyspnea and dyspnea on exertion Narrative Narrative: Patient is a 82-year-old male presents with sarika hemoptysis, shortness of breath, dyspnea on exertion that started 3 hours ago. He denies fever, chills night sweats. He had bronchoscopy performed several years ago and had a nodule. The procedure had complications necessitating transfer to [facility]. He was cared for by Dr. Oliverio Herrmann. He had recent follow-up studies that revealed 3 new nodules near the surgical site and a nodule on the opposite side. Patient is presently on a baby aspirin and Plavix. He is on no anticoagulant. He is on Plavix because of his heart. He denies upper respiratory tract infectious symptoms. He denies headache, visual, ocular auditory symptoms. Denies bleeding of his gums. He denies bruising easily. He denies abdominal pain, nausea, vomiting or diarrhea. He denies dysuria, frequency, urgency or hematuria. He denies bruising easily or bleeding easily. He does complain of swelling of his left lower extremity status post surgery. He denies prior history of VTE. Prior similar symptoms: No Recent Illness/Hospitalization: No PFSH [facility] Medical History Abrasion Anxiety Benign essential HTN Bronchiectasis CAD (coronary artery disease) Cancer Cardiology follow-up encounter Chest pain Chronic cough Chronic hypoxemic respiratory failure COPD (chronic obstructive pulmonary disease) Former smoker High cholesterol History of steroid therapy History of stress test History of weight loss HLD (hyperlipidemia) Injury of back No pertinent family history Nocturnal hypoxemia On home oxygen therapy Prostate CA Prostate disease Shortness of breath on exertion Stage 3 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 Syncope Tobacco dependence in remission Wears dentures Wears glasses Home Medications aspirin 81 mg chewable tablet 81 mg PO QPM heart health 12/29/14 [History Last Taken 03/24/23] nitroglycerin 0.4 mg sublingual tablet 0.4 mg sublingual Q5M PRN Chest Pain 12/29/14 [History Last Taken 1 Week Ago ~07/02/20] clopidogrel 75 mg tablet 75 mg PO QPM blood thinner 04/19/16 [History Last Taken 03/24/23] guaifenesin 1,200 mg tablet, extended release 12 hr (Mucinex) 1,200 mg PO BID congestion 07/09/20 [History Last Taken 03/24/23] lorazepam 1 mg tablet (Ativan) 0.5 - 1 mg PO TID PRN Anxiety 07/09/20 [History Last Taken 03/25/23] polyethylene glycol 3350 17 gram oral powder packet (Miralax) 17 g PO DAILY PRN Constipation 07/09/20 [History Last Taken 03/24/23] acetaminophen 325 mg tablet (Tylenol) 650 mg PO Q4H PRN Pain 08/13/20 [History Last Taken 03/24/23] prednisone 10 mg tablet 10 mg PO QDAY #90 tabs 01/15/22 [Rx Last Taken 03/25/23] oxycodone 5 mg tablet 2.5 - 5 mg PO Q6H PRN PAIN AND BREATHING 02/05/22 [History Last Taken 03/25/23] levalbuterol tartrate 45 mcg/actuation aerosol inhaler 2 inh inhalation Q4H PRN shortness of breath or wheezing #15 grams 07/25/22 [Rx Last Taken 03/25/23] fluticasone propionate 230 mcg-salmeterol 21 mcg/actuation HFA inhaler (Advair HFA) 2 puff inhalation BID 08/07/22 [History Last Taken 03/25/23] atorvastatin 40 mg tablet 40 mg PO QHS cholesterol 03/25/23 [History Last Taken 03/24/23] duloxetine 30 mg capsule,delayed release 30 mg PO QPM DEPRESSION 03/25/23 [History Last Taken 03/24/23] levofloxacin 500 mg tablet 500 mg PO DAILY ANTIBIOTIC 03/25/23 [History Last Taken 03/24/23] lidocaine 4 % topical patch 1 patch topical DAILY 03/25/23 [History Last Taken 03/25/23] tamsulosin 0.4 mg capsule 0.4 mg PO QPM BLADDER/ PROSTATE 03/25/23 [History Last Taken 03/25/23] tiotropium bromide 2.5 mcg/actuation mist for inhalation (Spiriva Respimat) 2 puff inhalation DAILY copd 03/25/23 [History Last Taken 03/24/23] Allergy/AdvReac Type Severity Reaction Status Date / Time isosorbide [From Imdur] Allergy Other-patient Verified 03/25/23 12:50 blacks out Family History Other No pertinent family history Surgical History Hx of CABG Hx of heart artery stent Hx of pneumonectomy Hx of transurethral resection of prostate No pertinent past surgical history Social History Smoking Status: Former smoker Tobacco: How many years used: 45 Electronic Cigarette Use: not used how long ago did patient quit smokin, second hand exposure: Yes alcohol intake: never substance use type: does not use ROS ROS ED Constitutional Constitutional ED: Denies chills, fever(s), subjective or sweats Eyes Eyes: Denies blurry vision or change in vision ENT ENT ED: Denies ear pain, rhinorrhea or sore throat Cardiovascular Cardiovascular: Denies chest pain, orthopnea, palpitations or paroxysmal nocturnal dyspnea Respiratory/Chest Respiratory/Chest: Reports cough, dyspnea, dyspnea on exertion and sputum; Denies orthopnea or paroxysmal nocturnal dyspnea Gastrointestinal Gastrointestinal: Denies abdominal pain, melena, nausea or vomiting Genitourinary Genitourinary ED: Denies dysuria or hematuria Musculoskeletal Musculoskeletal: Denies arthralgias, back pain or myalgias Integumentary Denies rash Neurologic Neurologic: Denies headache(s) or weakness Psychiatric Psychiatric: Reports anxiety Endocrine Endocrinology: Denies cold intolerance or heat intolerance Hematologic/Lymphatic Hematologic/Lymphatic: Reports systems reviewed and no addt'l complaints, exceptas documented EXAM Physical Exam Const Vital Signs: 03/25/23 12:50 03/25/23 12:54 03/25/23 12:54 Temperature 97.6 F L 97.8 F Temperature Source Temporal Temporal Pulse Rate 131 H 130 H Respiratory Rate 16 24 H Respiratory Effort Short of Breath Labored Pursed Lip Respiratory Depth Shallow Respiratory Pattern Tachypnea Blood Pressure 139/81 H 139/81 H Blood Pressure Mean 100 100 Pulse Ox 97 97 Oxygen Delivery Method Nasal Cannula Nasal Cannula Nasal Cannula Oxygen Flow Rate (L/min) 3 3 3 03/25/23 15:11 Temperature Temperature Source Pulse Rate 81 Respiratory Rate 16 Respiratory Effort Respiratory Depth Respiratory Pattern Blood Pressure 117/73 Blood Pressure Mean 87 Pulse Ox 98 Oxygen Delivery Method Nasal Cannula Oxygen Flow Rate (L/min) 4 Positive well nourished, well developed and obese Constitutional Narrative: Patient is in respiratory distress breathing more rapidly than 24 times a minute. He has minimal use of accessory muscle. He is tachycardic with a narrow complex noted on the monitor with a rate of 144. Patient has sarika hemoptysis. General Appearance ED: well developed; Negative for cyanotic, diaphoretic, NAD or pallor Nutritional Appearance: obese HEENT Reports moist mucous membranes HEENT Narrative: Blood noted posterior pharynx. Uvula midline. No deviation tongue with protrusion. Eyes PERRL and EOMs intact bilaterally General Eye ED: Negative for pale conjunctiva or scleral icterus Neck no lymphadenopathy, supple and no JVD Chest Wall inspection of chest normal and palpation of chest normal Resp No normal respiratory effort and clear to auscultation bilaterally Cardio regular rhythm, S1 normal heart sound, S2 normal heart sound and no murmurs Rate: tachycardic GI normal to inspection, nondistended, normoactive bowel sounds, non-tender, non-distended and no masses; Negative for hepatosplenomegaly Back/Spine General Back: CVA tenderness Thoracic Spine / Upper Back: Negative for thoracic spinal tenderness Lumbar Spine / Lower Back: Negative for lumbar spinal tenderness Extremity Extremity Narrative: Slight edema left lower extremity, which is chronic. Neuro oriented x3, CN's II-XII intact bilaterally and no sensory deficits noted Sensorium / Orientation: alert Psych mental status grossly normal Skin no rashes or lesions noted and no wounds General Skin Exam: Negative for jaundice or pallor MDM MDM MDM Narrative Medical decision making narrative: With dyspnea that started abruptly with him options need to rule out PE. Also need to consider rate malignancy with erosion into pulmonary vessel. This may also represent pneumonia and difficulty clotting since he is on aspirin and Plavix. Will obtain CTA and appropriate blood work. Will also review prior records. History & Record Review Additional record(s) reviewed:: Prior ED visit and Prior labs Lab Data Attestation: I reviewed the patient's lab results. Lab results narrative: White count elevated 15.6 with shift. There is no bandemia. Electrolyte panel is unremarkable. Glucose is 125 with a normal CO2 anion gap. Hepatic panel is normal. Labs: Laboratory Results - last 24 hr 03/25/23 03/25/23 13:00 13:20 WBC 15.6 H RBC 4.91 Hgb 13.7 Hct 45.0 MCV 91.6 MCH 27.9 MCHC 30.4 L RDW Std Deviation 51.6 H RDW Coeff of Estelita 15.3 H Plt Count 309 MPV 8.7 Immature Gran % (Auto) 0.400 Neut % (Auto) 92.4 H Lymph % (Auto) 3.7 L Posey % (Auto) 3.2 Eos % (Auto) 0.1 Baso % (Auto) 0.2 Absolute Neuts (auto) 14.4 H Absolute Lymphs (auto) 0.57 L Nucleated RBC % 0 PT 13.1 INR 1.0 APTT 27.1 Sodium 139 Potassium 4.5 Chloride 106 Carbon Dioxide 27.0 Anion Gap 6 BUN 18 Creatinine 1.03 Estim Creat Clear Calc 60.92 Est GFR (MDRD) Af Amer 89 Est GFR (MDRD) Non-Af 74 BUN/Creatinine Ratio 17.5 Glucose 125 H Lactic Acid 2.3 H* Calcium 9.5 Total Bilirubin 0.50 AST 20 ALT 20 Alkaline Phosphatase 84 Total Protein 7.4 Albumin 3.4 Globulin 4.0 Albumin/Globulin Ratio 0.8 L Radiography Diagnostic Testing: Clinical Impression(s) from Imaging Studies Chest CTA 03/25/23 13:05 IMPRESSION: 1. Pulmonary embolism in second branches of left lower lobe pulmonary artery. 2. Pleural-based cavitary lesion left lower lobe increased in size since previous exam concerning for malignancy corresponding to the PET/CT abnormality. 3. Spiculated lesions in the left lung again concerning for malignancy. 4. Scattered ill-defined densities some of them new since the previous exam. Electronically Signed: Lui Nolen MD at 14:30 EST , ADDENDUM: 03/25/23 2851 IMPRESSION: 1. Pulmonary embolism in second branches of left lower lobe pulmonary artery. 2. Pleural-based cavitary lesion left lower lobe increased in size since previous exam concerning for malignancy corresponding to the PET/CT abnormality. 3. Spiculated lesions in the left lung again concerning for malignancy. 4. Scattered ill-defined densities some of them new since the previous exam. N.B. : The above Results were Read Back by Lui Nolen MD to Randy Londono MD, and understanding confirmed on 03/25/2023 14:32:41 (ET). Electronically Signed: Lui Nolen MD at 14:30 EST , Rhythm Strip Rhythm Strip: Sinus Tach Rate: 144 Ectopy: PVC(s) (Occasional to rare) EKG Initial EKG: Attestation: I personally reviewed and interpreted this EKG as follows: Interpretation: Sinus Tachycardia (Rate is 130. There are premature ventricular complexes noted. Parables 128 ms. QS duration 70 ms. QT duration 294 ms. Coggon is normal. There are nonseptic changes which may be artifact due to his breathing.) Management Discussion w/another healthcare provider: Hospitalist (Spoke with Dr. Terrell Suazo regarding patient. Plan is admission to PCU. He was made aware of patient's history, physical and test results.) Treatment and Re-Evaluation :: Patient and his were informed of test results. He is no longer tachypneic. He is no longer in respiratory distress. Plan is anticoagulation with heparin. Patient will need to be observed since he has sarika hemoptysis. Presently he is no longer coughing sarika blood. Critical Care Time Critical Care Time: Yes Critical care time (excluding procedures): 30-74 minutes (31), Including time spent: (History, physical, documentation, independent or potation of laboratory results initiation of therapy, review of outside records), Discussing w/Patient &/or Family/Shuttle Preparation Supervisor, Discussing w/Consultants and Arranging Admission or Transfer Discharge Plan Dx/Rx/DC Orders Clinical Impression: Pulmonary embolus, Pulmonary cavitary lesion, Benign essential HTN, COPD with acute exacerbation, Major hemoptysis, Acidosis, lactic, Sinus tachycardia by electrocardiogram, Pulmonary neoplasm, History of coronary artery disease Disposition Disposition: Acute Care Hospital [facility] What to do if you have Problems For any increased pain, shortness of breath, bleeding, nausea or vomiting, chestpain, or any unexpected problems, contact your Primary Care Provider. Call [facility] ([phone]) or report to the closest Emergency Room. Call 911 if necessary. 03/25/23 1893 <Electronically signed by Randy Londono MD> Cosigner Signature (if applicable): CC: Dr. Mei Cummins MD ~ Signed [facility] Work Phone: 1(416) 934-476311-21-2023 History of Present illness Narrative* Ab Calvillo MD - 01/20/2023 11:45 AM EST Images from the original note were not included. . [facility] [place] Note Patient name: Oswaldo Corley PCP: Mei Cummins MD CC: Follow-up COPD Note: Part of note copied forward from [facility] 10/13/2022: HPI: Oswaldo Corley 82 year old male former 80 pack year smoker, quitting 2002 with PMH significant for CAD s/p CABG/stents, AAA, DM2, HTN, DM2, prostate cancer s/p radiation and hormonal therapy, squamous cell carcinoma of the lung, COPD, GOLD 3, bronchiectasis, presenting for follow-up visit. History notable for suspicious LLL nodule 2019, s/p CT guided biopsy which was non-diagnostic and resulted in PTX. Subsequent left mini thoracotomy with wedge resection showed moderately differentiatedsquamous cell carcinoma, s/p radiation to LLL completing therapy in 2020. He has had a chronic small hydropneumothorax since his surgery. Surveillance chest CT 07/2020 showed multifocal PNA with SULAIMAN ca vitary nodule. Bronchoscopy pertinent for MSSA and Strep mitis. He has not done well since his surgery. He was previously on oxygen only at night but since his surgery has required full-time oxygen. He is very limited in his activities of daily living. Recently had a bout of hemoptysis which resolved to green sputum production, he was seen in local ED. Chest CT showed several new nodular areas 1 on the left which appears inflammatory but 1 nodule in his right lower lobe which is suspicious for possible cancer. Current respiratory symptoms consist of chest pain, dyspnea on exertion, easy fatigability, currently not coughing or bringing up phlegm. No wheezing. No fevers, chills, weight loss. Patient is compliant with his current inhaled therapy. No need for his albuterol inhaler. DME: [employer] 3 Liters DATA: Imaging / Diagnostic Studies: DATE OF EXAM: Nov 18 2022 3:21PM [facility] 0539 - CT CHEST W IVCON / PROCEDURE REASON: Malignant neoplasm of unspecified part of unspecified bronchus or lung (HCC) Contrast: 100 mL Omnipaque 350 IV Comparison: CT chest on 11/15/2021 RESULT: Limitations: None. Lines, tubes, and devices: None. Lung parenchyma and airways: Retained secretion noted along the right tracheal wall; otherwise the central airways are patent. There is diffuse bronchial wall thickening. A few pulmonary nodules identified. For example, there are stable nodules in the left lung measuring up to 7 mm, series 12 images 19, 52, 61 and 70. There is a stable 1.6 x 1.1 cm nodular density in the anterior right lower lobe, series 12 image 151. Noted is a 9.5 x 7 mm new solid nodule in the posterior right lower lobe, series 12 image 129. Small groundglass opacities seen in the superior segment of the left lower lobe, with airlucency/bronchiectasis, series 12 image 78. Atelectasis in the right lower lobe similar to prior study. Thickened pleural surface with adjacent opacities/reticulations in the left lower lobe, associated with localized pneumothorax. There are large bilateral pericardial fat pads. Pleural space: Left-sided pleural thickening and localized pneumothorax as described above. No right-sided pleural effusion. Right-sided pleural calcifications visualized however unchanged. No pneumothorax. Lower neck, lymph nodes, and mediastinum: The imaged thyroid gland is normal. No lymphadenopathy inthe supraclavicular, axillary, mediastinal, or hilar regions, although multiple subcentimeter in short axis mediastinal lymph nodes are again visualized. Heart, pericardium, and thoracic vessels: The thoracic aorta and main pulmonary artery are normal in caliber. The cardiac chambers are normal in size. Linear and punctate coronary artery atherosclerotic calcifications are noted, although the study is not optimized for coronary assessment. No pericardial effusion or thickening. Bones and soft tissues: Status post median sternotomy and CABG. The spine shows degenerative changes. Chest wall soft tissue is stable. Upper abdomen: A dedicated CT abdomen and pelvis was performed concurrently and has been reported separately. IMPRESSION: Multiple bilateral lung nodules including a new right lung nodule as described above. Consider follow-up. Emphysema. Small groundglass opacity with central lucency/bronchiolectasis in the left lower lobe likely inflammatory/infectious process. Left-sided pleural thickening with localized pneumothorax. Right-sided pleural calcifications. No CT evidence of lymphadenopathy. I personally reviewed the images as well as with the patient and his and agree with the above assessment, patient is already set up for surveillance CT in January PAST MEDICAL HISTORY Diagnosis Date Abdominal aortic aneurysm (AAA) without rupture (HCC) 11/19/2018 Atypical chest pain CAD (coronary artery disease) s/p CABG 1999, PCI w/ stents Chronic respiratory failure (HCC) COPD (chronic obstructive pulmonary disease) (HCC) Hyperlipidemia Hyperlipidemia Hypertension Lung cancer (HCC) Prostate cancer (HCC) Dx Dec 2014, s/p radiation, on hormonal therapy Ulcer of right foot (HCC) 04/30/2022 ALLERGIES Allergen Reactions Imdur [Isosorbide M* Hives Black out and dizziness LORazepam (ATIVAN) 1 mg tablet Take 1 tablet by mouth three times a day for 90 days. nitroglycerin sublingual (NITROSTAT) 0.4 mg SL tablet Dissolve 1 tablet under the tongue every 5 minutes as needed. SPIRIVA RESPIMAT 2.5 mcg/actuation inhaler Inhale 2 Puffs as instructed once daily. predniSONE (DELTASONE) 10 mg tablet Take 1 tablet by mouth once daily. atorvastatin (LIPITOR) 40 mg tablet Take 1 tablet by mouth once daily. ADVAIR HFA 230-21 mcg/actuation inhaler Inhale 2 Puffs as instructed twice daily. clopidogrel (PLAVIX) 75 mg tablet Take 1 tablet by mouth once daily. acetaminophen 325 mg cap Take 650 mg by mouth. oxyCODONE IR (ROXICODONE) 5 mg immediate release tablet TAKE 1/2 TABLET BY MOUTH 4 TIMES DAILY NEEDED FOR SHORTNESS OF BREATH tamsulosin (FLOMAX) 0.4 mg Take 0.4 mg by mouth once daily. guaiFENesin (MUCINEX) 600 mg 12 hr tablet Take 2 tablets by mouth twice daily. DULoxetine (CYMBALTA) 30 mg capsule 1 capsule once daily. ondansetron (ZOFRAN) 4 mg tablet 1 tablet as needed. aspirin, enteric coated (ASPIRIN, ENTERIC COATED) 81 mg EC tablet Take 81 mg by mouth once daily. albuterol HFA (PROAIR HFA) 90 mcg/actuation inhaler Inhale 2 Puffs as instructed every 4 hours as needed for Wheezing/Shortness of Breath. Social History Tobacco Use Smoking status: Former Packs/day: 2.00 Years: 40.00 Additional pack years: 0.00 Total pack years: 80.00 Types: Cigarettes Start date: 11/08/1962 Quit date: 05/13/2002 Years since quittin.7 Smokeless tobacco: Never Vaping Use Vaping Use: Never used Substance Use Topics Alcohol use: Not Currently Alcohol/week: 3.0 standard drinks of alcohol Types: 3 Cans of beer per week Comment: light beer Drug use: No PMH, Social history, family history and surgical history reviewed and updated in EMR REVIEW OF SYSTEMS: CONSTITUTIONAL: No fevers, chills, nightsweats, unintended weight loss HEENT: Denies nasal congestion/sinus symptoms, allergy problems. EYES: No eye pain, blurry vision. CARDIOVASCULAR: No chest pain, palpitations, orthopnea, PND, edema. PULM: See HPI GI: No dysphagia/odynophagia, problematic reflux, constipation, diarrhea : No urinary complaints, including dysuria, gross hematuria or pyuria. NEURO: No new balance problems, peripheral weakness/paresthesias or numbness of concern. MUSC-SKEL: No joint pain, swelling, or erythema. PSY: Anxiety INTEGUMENTARY: No new skin changes or rashes PHYSICAL EXAMINATION: BP 165/90 Pulse 91 Resp 22 Wt 184 lb (83.5kg) SpO2 100[Pt is on 3L O2]% General Appearance: Age-appropriate male, NAD. Cushingoid Skin: Skin color, texture, turgor normal, no suspicious rashes or lesions. Upper extremity ecchymoses Head: Normocephalic, no masses, lesions, tenderness or abnormalities. Eyes: Sclera, conjunctiva normal Oropharynx: No thrush. Neck: No JVD, no masses, no adenopathy. Lungs: Not labored, dullness percussion left base, crackles right base. Heart: Regular rate and rhythm, no murmurs or gallops. Extremities: No edema, no clubbing. Assessment/Plan: Lung nodule -New right lower lobe solid nodule concerning for neoplasm -Surveillance CT deviled for January Severe COPD, GOLD 3 -Patient will continue triple inhaler therapy with as needed albuterol Chronic hypoxemic respiratory failure -Patient is compliant with and benefits from supplemental oxygen H/o Lung cancer -Possible recurrence Bronchiectasis, uncomplicated -Recent hemoptysis likely due to a bronchiectasis exacerbation. Patient instructed to contact office if he has recurrence of his symptoms as he likely needs antibiotics Chronic hydropneumothorax -Stable, no intervention required Ab Calvillo MD [facility] [place] documented in this encounter[facility]23 Miscellaneous Notes* Telephone Encounter - Vickie Carrillo Ma - 01/02/2023 4:43 PM EDT Form completed and faxed back to number below. Vickie Carrillo Ma * Telephone Encounter - Malu Tavares Ma - 01/01/2023 10:42 AM EDT Type of letter/form/fax request - approval to hold Plavix for 7 days for pain management procedure Form received from fax on 1 floor and placed on MD desk () for completion. Completed form needs to be faxed to [facility] at [phone]. Route to [place] when form completed for processing documented in this encounterPromedica [facility]10-20-2023 History of Present illness Narrative* Mei Cummins MD - 12/19/2022 11:40 AM EDT Chief Complaint Patient presents with: F/U 3 Month HPI Oswaldo Corley is a 82 year old male who presents here today for a 3 month follow up. Pt here today for a 3 month medication follow up. Would like to discuss vaccines. Uro - Takes Flomax 0.4 mg once daily, stable Anxiety/Depression - Chronic anxiety. Pt receives Ativan 1 mg 0.5-1 tab po TID and Cymbalta 30 mg daily. He worries about his health and dying. Currently follows with Palliative Care, Karla every 2-3 months, who started him on Cymbalta as well as other medications, but does not prescribe his Ativan. HTN - Checks BP at home on occasion, stable. Has chronic intermittent CP, dizziness and sob. Some symptoms have improved from his PAD surgery. Follows with Dr. Manzano in Cardiology. Currently on no medications. Lipids - Tries to watch his diet by counting calories. Denies any exercise due to his COPD. On current regimen of Plavix 75 mg once daily, Lipitor 20 mg daily and ASA 81 mg daily. COPD/Lung Cancer - Follows with Pulmonary and Palliative Medicine for end stage disease and cancer.Pt current receiving Oxycodone 5 mg 1 tab po 2-3 daily to help with his breathing. Notes issues with breathing and urinating in the past. Wear O2 3-4 L constantly and checks pulse ox at home in the 90's. He uses a vest at home that shakes as well. Does have some issues with medication making him sleepy. Overall does well if he's up and moving, but notes he's 82 years old. PAD/Ulcer - Follows with Vascular, Dr. Rivas. Had angiogram due to PAD. Feels a lot of his symptoms have improved some. Pain - Chronic, using Oxycodone through Palliative Medicine, takes 1 tablet 2-3 times per day. Had pain injection done by Dr. Steward done a few weeks ago, this seems to help. Derm - Follows with Marian Espinosa for precancerous skin lesion on the side of his face. Currently using a cream on his face and is scabbed up right now, but is healing. Does have a cat scratch on his face. HM - Agreeable to Flu/Covid. Discussed RSV; recommended at pharmacy. Past medical history, appointments, medications, allergies reviewed. Previous Medical History PAST MEDICAL HISTORY Diagnosis Date Abdominal aortic aneurysm (AAA) without rupture (HCC) 11/19/2018 Atypical chest pain CAD (coronary artery disease) s/p CABG 1999, PCI w/ stents COPD (chronic obstructive pulmonary disease) (HCC) Hyperlipidemia Hyperlipidemia Hypertension Lung cancer (HCC) Prostate cancer (HCC) Dx Dec 2014, s/p radiation, on hormonal therapy Ulcer of right foot (HCC) 04/30/2022 Previous Surgical History PAST SURGICAL HISTORY Procedure Laterality Date ANGIOGRAM EXTREMITY LUNG BIOPSY Left needle biopsy LUNG SURGERY HX 02/20/20 lt lung nodule removed PAST SURGICAL HISTORY OF TURP PAST SURGICAL HISTORY OF 03/02/1999 triple bypass PAST SURGICAL HISTORY OF Left 09/04/2022 Skin biopsy left upper cheek face PAST SURGICAL HISTORY OF LE vascular Family History FAMILY HISTORY Problem Relation Age of Onset Cancer Mother 49 breast, bone Diabetes Father Heart Father Cancer Sister breast Emphysema Sister Smoker Diabetes Brother Heart Brother other (Other) Brother Parkinsons Diabetes Paternal Grandmother Heart Paternal Grandmother Patient Allergies ALLERGIES Allergen Reactions Imdur [Isosorbide M* Hives Black out and dizziness Current Medications Current Outpatient Medications on File Prior to Visit Medication Sig acetaminophen 325 mg cap Take 650 mg by mouth. ADVAIR HFA 230-21 mcg/actuation inhaler Inhale 2 Puffs as instructed twice daily. albuterol HFA (PROAIR HFA) 90 mcg/actuation inhaler Inhale 2 Puffs as instructed every 4 hours as needed for Wheezing/Shortness of Breath. aspirin, enteric coated (ASPIRIN, ENTERIC COATED) 81 mg EC tablet Take 81 mg by mouth once daily. atorvastatin (LIPITOR) 40 mg tablet Take 1 tablet by mouth once daily. clopidogrel (PLAVIX) 75 mg tablet Take 1 tablet by mouth once daily. DULoxetine (CYMBALTA) 30 mg capsule 1 capsule once daily. guaiFENesin (MUCINEX) 600 mg 12 hr tablet Take 2 tablets by mouth twice daily. LORazepam (ATIVAN) 1 mg tablet Take 1 tablet by mouth three times daily for 90 days. nitroglycerin sublingual (NITROSTAT) 0.4 mg SL tablet Dissolve 1 tablet under the tongue every 5 minutes as needed. ondansetron (ZOFRAN) 4 mg tablet 1 tablet as needed. oxyCODONE IR (ROXICODONE) 5 mg immediate release tablet TAKE 1/2 TABLET BY MOUTH 4 TIMES DAILY NEEDED FOR SHORTNESS OF BREATH predniSONE (DELTASONE) 10 mg tablet Take 1 tablet by mouth once daily. SPIRIVA RESPIMAT 2.5 mcg/actuation inhaler Inhale 2 Puffs as instructed once daily. tamsulosin (FLOMAX) 0.4 mg Take 0.4 mg by mouth once daily. tiotropium (SPIRIVA WITH HANDIHALER) 18 mcg inhalation capsule Inhale 1 capsule as instructed once daily. Use with handihaler. No current facility-administered medications on file prior to visit. Social History Social History Tobacco Use Smoking status: Former Packs/day: 2.00 Years: 40.00 Additional pack years: 0.00 Total pack years: 80.00 Types: Cigarettes Start date: 11/08/1962 Quit date: 05/13/2002 Years since quittin.6 Smokeless tobacco: Never Vaping Use Vaping Use: Never used Substance Use Topics Alcohol use: Not Currently Alcohol/week: 3.0 standard drinks of alcohol Types: 3 Cans of beer per week Comment: light beer Drug use: No EXAM: BP 126/82 (BP Site: Left Arm, BP Position: Sitting, BP Cuff Size: Regular Adult) Pulse 80 Resp 20 Wt 81.6 kg (179 lb 12.8 oz) BMI 26.40 kg/m General Appearance: Well appearing, alert, in no acute distress, well-hydrated, well nourished.. Skin: Scab located on left upper cheek of face. Lungs: Lungs clear to auscultation. No wheezing, rhonchi, rales.. Heart: RRR without murmur, gallop, or rubs. No ectopy. Health Maintenance List Urine Albumin:Creatinine Ratio Never done Dilated Retinal Exam Never done Diabetic Foot Exam Never done BP Controlled (<130/80) Never done DTaP,Tdap,Td Vaccine(1 - Tdap) Never done Shingrix Vaccine(1 of 2) Never done Hepatitis B Vaccine(1 of 3 - Risk 3-dose series) Never done Influenza Vaccine(1) due on 10/31/2022 Covid-19 Vaccine( - 2022- season) due on 10/31/2022 HbA1C due on 12/24/2022 Annual PCP Team Chronic Disease Visit due on 09/20/2023 LDL Cholesterol due on 11/12/2023 Spirometry Completed Advance Directive Discussion Completed Depression Assessment Completed Pneumococcal Vaccine: 65+ Completed HPV Vaccine Aged Out Colorectal Cancer Screening Discontinued Data reviewed Epic ASSESSMENT/PLAN: 1. Anxiety - ICD9: 300.00, ICD10: F41.9 (primary diagnosis) Continue current medications. - LORAZEPAM 1 MG TABLET 2. Depression, unspecified depression type - ICD9: 311, ICD10: F32.A 3. Essential hypertension - ICD9: 401.9, ICD10: I10 - Controlled - Continue current medications 4. Chronic obstructive pulmonary disease, unspecified COPD type (HCC) - ICD9: 496, ICD10: J44.9 Follow with Pulm Continue current medications. 5. Squamous carcinoma of lung, left (HCC) - ICD9: 162.9, ICD10: C34.92 6. Acute and chronic respiratory failure with hypoxia (HCC) - ICD9: 518.84, 799.02, ICD10: J96.21 7. Hyperlipidemia, mixed - ICD9: 272.2, ICD10: E78.2 Continue current medications. 8. PAD (peripheral artery disease) (HCC) - ICD9: 443.9, ICD10: I73.9 9. Elevated glucose - ICD9: 790.29, ICD10: R73.09 Monitor 10. Hypertrophy of prostate with urinary obstruction - ICD9: 600.01, 599.69, ICD10: N40.1, N13.8 Continue current medications. 3 mo f/u I agree with the Chief Complaint, ROS, and Past Histories independently gathered by the clinical product support technician and the remaining scribed note accurately describes my personal service to the patient. Medical Decision Making: Problems: Moderate: 2+ stable chronic illnesses Data: Unique test(s) ordered: 2 Risk: Moderate: Drug management Medical Decision Making Level: 4 - Moderate Mei Cummins MD The documentation for this note was completed by Vickie Carrillo Ma acting as scribe for Mei Cummins MD. December 19, 2022 11:52 AM. Vickie Carrillo Ma documented in this encounterPromedica [facility]09-25-2023 Discharge summary Author Cristi Godinez [facility] November 24, 2022 4:58pm Note Date/Time November 24, 2022 3:08pm [facility] Medical Records Department [address] [place] [id number] Emergency Department Summary 11/24/22 MR#: [id number] Acct: [id number] Name: OSWALDO CORLEY Rep #:[id number] : 1940 82 From: Cristi Godinez MD PCP: Dr. Mei Cummins MD Status:RE G ER Location: ED ADDENDUM by Dr. Cristi Godinez MD on 11/24/22 at 1658 Been interpretation the patient's EKG shows sinus rhythm with occasional PVC. Overall rate is 88. No acute ST elevation to depression but there are some nonspecific changes. [place] interval, QRS duration and QTc are normal. 11/24/22 1658<Electronically signed by Cristi Godinez MD> Cosigner Signature (if applicable): cc: Dr. Mei Cummins MD ~* Signed HPI History of Present Illness Chief Complaint: Chest Pain Informant: patient and spouse/S.O. Narrative Narrative: P{t Presents with concern for pulmonary embolus. This patient has a history of prostate cancer that was treated with radiation. That is considered treated and was over 5 years ago. History of a nodule on hisleft lower chest. This was excised. No chemo or radiation. But he has chronicinflammatory changes there. Patient had a CAT scan of his chest last week for recheck. But then he told hisdoctor afterwards that he was having some left-sided chest pain. He was sent infor possible pulmonary embolus. But the patient tells me he gets pain down there not uncommonly. He had a biopsy of the pulmonary lesion about 2-1/2 yearsago. It took multiple attempts. It caused a draining area and a pneumothorax. He was transferred up to [facility] [place]. They ended up doing surgery to remove the nodule. But he had a residual collection of fluid and small localized pneumothorax. They decided it was not appropriate to go to do any further therapy. He has had that ever since. He occasionally gets pain in the area. His CT done just last week that I looked at on [facility] shows that he has a localized pneumothorax in that area. They are not here to do anything about this as this is evidently been a chronic issue. Patient does state and his states that he has had mild worsening of his COPD in the last few weeks but is not uncommon for that to happen. But he does not feel sick. He is not coughing any different than normal. No fevers or chills. The pain down the left anterior chest is actually not terribly uncommon but it is a little worse. [facility] Medical History Abrasion Anxiety Benign essential HTN Bronchiectasis CAD (coronary artery disease) Cancer Cardiology follow-up encounter Chest pain Chronic cough Chronic hypoxemic respiratory failure COPD (chronic obstructive pulmonary disease) Former smoker High cholesterol History of steroid therapy History of stress test History of weight loss HLD (hyperlipidemia) Injury of back No pertinent family history Nocturnal hypoxemia On home oxygen therapy Prostate CA Prostate disease Shortness of breath on exertion Stage 3 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 Syncope Tobacco dependence in remission Wears dentures Wears glasses Home Medications aspirin 81 mg chewable tablet 81 mg PO DAILY@0800 [facility] 12/29/14 [History Last Taken 07/08/20] nitroglycerin 0.4 mg sublingual tablet 0.4 mg sublingual PRN PRN Chest Pain 12/29/14 [History Last Taken 1 Week Ago ~07/02/20] clopidogrel 75 mg tablet 75 mg PO DAILY blood thinner 04/19/16 [History Last Taken 07/08/20] albuterol sulfate 2.5 mg/3 mL (0.083 %) solution for nebulization 2.5 mg (3 mL) inhalation Q4H PRN J44.9 COPD #120 vials 02/14/20 [Rx Last Taken 3 Weeks Ago ~06/18/20] atorvastatin 20 mg tablet (Lipitor) 20 mg PO DAILY cholesterol 07/09/20 [History Last Taken 07/08/20] guaifenesin 1,200 mg tablet, extended release 12 hr (Mucinex) 1,200 mg PO BID congestion 07/09/20 [History Last Taken 08/14/20] lorazepam 1 mg tablet (Ativan) 0.5 - 1 mg PO TID PRN Anxiety 07/09/20 [History Last Taken 07/09/20] polyethylene glycol 3350 17 gram oral powder packet (Miralax) 17 g PO BID PRN Constipation 07/09/20 [History Last Taken 07/09/20] acetaminophen 325 mg tablet (Tylenol) 650 mg PO Q4H PRN Pain 08/13/20 [History Last Taken 08/14/20] prednisone 10 mg tablet 10 mg PO QDAY #90 tabs 01/15/22 [Rx Last Taken Unknown] oxycodone 5 mg tablet 2.5 mg PO Q6H PRN 02/05/22 [History Last Taken Unknown] tiotropium bromide 2.5 mcg/actuation mist for inhalation (Spiriva Respimat) 2 puff inhalation Q24H copd #4 grams 04/14/22 [Rx Last Taken Unknown] levalbuterol tartrate 45 mcg/actuation aerosol inhaler 2 inh inhalation Q4H PRN shortness of breath or wheezing #15 grams 07/25/22 [Rx Last Taken Unknown] fluticasone propionate 230 mcg-salmeterol 21 mcg/actuation HFA inhaler (Advair HFA) 2 puff inhalation BID 08/07/22 [History Last Taken Unknown] Allergy/AdvReac Type Severity Reaction Status Date / Time isosorbide [From Imdur] Allergy Other-patient Verified 11/24/22 13:57 blacks out Family History Other No pertinent family history Surgical History Hx of CABG Hx of heart artery stent Hx of pneumonectomy Hx of transurethral resection of prostate No pertinent past surgical history Social History Smoking Status: Former smoker Tobacco: How many years used: 45 Electronic Cigarette Use: not used how long ago did patient quit smokin, second hand exposure: Yes alcohol intake: never substance use type: does not use ROS ROS ED ROS Narrative A complete review of systems was performed and is negative except as documented in the history of present illness. Some specific details below. Constitutional: No recent fevers or chills. Malaise. EYE: No discharge, visual complaints, or pain. ENT: No difficulty swallowing. No swelling. No pain. No reflux symptoms. CV: Potation's. He does have some left lower chest pain. See history of present illness. Respiratory: See history of present illness. Worsening of COPD. But he is on 3L of oxygen all the time and does not feel the need to increase this. He feels comfortable now. GI: No abdominal pain. No nausea vomiting diarrhea. No blood in stool. : No frequency dysuria or hematuria. Musculoskeletal: No recent trauma. No pains. No swelling. Skin: No rash. Nondiaphoretic. Neuro: No weakness or numbness. Endocrine: No polyuria or polydipsia. EXAM Physical Exam Narrative Exam Narrative: CONSTITUTIONAL: Patient is nontoxic in appearance. The patient looks comfortable. Work of breathing looks normal. He carries on a normal conversation. HEENT: No notable trauma. Mucous membranes moist. No sinus tenderness. No indication of pain with swallowing. EYES: No conjunctival injection. No proptosis. NECK:No JVD. No stridor. CARDIOVASCULAR: Regular rate. Regular rhythm. No notable murmur. No JVD. RESPIRATORY: No respiratory distress. Breathing is unlabored. Does have a few coarse breath sounds more on the left. He does have some slight expiratory wheezing on the left. But his saturations are 100% on 3 L on the monitor while I am in the room. He is not coughing. He speaks easily with no dyspnea or pause in his speech. He does have some slight tenderness over the left lower rib cage. But again he states is not too uncommon for that to occur. GASTROINTESTINAL: Not distended. Bowel sounds are normal. No tenderness. No guarding. No rebound. No palpable mass. No bruit is heard. GENITOURINARY: No tenderness over the bladder. No CVA tenderness. MUSCULOSKELETAL: Atraumatic. No notable or abnormal peripheral edema. No cord. No tenderness along the deep venous system. No asymmetry. No distended veins. NEUROLOGICAL: Patient is alert and appropriate. No focal deficit noted. SKIN: No noted rashes. No diaphoresis. PSYCHIATRIC: Patient is calm. Mood is appropriate. Const Vital Signs: 11/24/22 13:55 11/24/22 13:55 11/24/22 15:15 Temperature 96 F L Temperature Source Temporal Pulse Rate 109 H 78 Respiratory Rate 22 H 15 Respiratory Effort Short of Breath Respiratory Pattern Normal Blood Pressure 135/74 H Blood Pressure Mean 94 Pulse Ox 93 Oxygen Delivery Method Nasal Cannula Oxygen Flow Rate (L/min) 3 11/24/22 15:15 11/24/22 14:55 11/24/22 15:00 Temperature Temperature Source Pulse Rate 64 79 Respiratory Rate 14 18 Respiratory Effort Respiratory Pattern Blood Pressure 148/78 H 148/78 H Blood Pressure Mean 101 101 Pulse Ox 100 98 97 Oxygen Delivery Method Nasal Cannula Room Air Nasal Cannula Oxygen Flow Rate (L/min) 3 3 MDM MDM MDM Narrative Medical decision making narrative: BC shows a mild nonspecific elevation of his white count. Platelets are normal. Electrolytes are normal other than glucose at 175. My independent interpretation of the CT scan of the chest shows no PE. But there is a loculated area with scarring at the left base. There is a little local collection of air but I do not see an air-fluid level. Final reading shows this area. No pulmonary embolus was seen. This area to me looks chronic and does not look like there is a lot of inflammatory change. Per family and patient this has been known about for a long time and the plan is to watch this area. The plan is to not go back and do surgery. They feel he is too much riskfor the benefit. Although this is a very abnormal scan and it is not in his area of pain it sounds like this is a known issue. I am not I will find out from the patient that he actually had a pain block to block the pain from this area about a year or so ago. It helped quite a bit and he was going to call to have another 1 of these done. I think that is reasonable. If he develops fever, worsening pain, swelling, weakness cough worsening dyspnea I think he needs to come back. Lab Data Attestation: I reviewed the patient's lab results. Labs: Laboratory Results - last 24 hr 11/24/22 14:27 WBC 12.2 H RBC 4.48 L Hgb 13.1 Hct 42.3 MCV 94.4 H MCH 29.2 MCHC 31.0 L RDW Std Deviation 50.4 H RDW Coeff of Estelita 14.6 Plt Count 184 MPV 9.3 Immature Gran % (Auto) 0.600 Neut % (Auto) 92.9 H Lymph % (Auto) 2.3 L Posey % (Auto) 3.8 Eos % (Auto) 0.2 Baso % (Auto) 0.2 Absolute Neuts (auto) 11.4 H Absolute Lymphs (auto) 0.28 L Nucleated RBC % 0 Differential Comment SEE COMMENT Diff Path Review May foll Platelet Estimate ADEQUATE Anisocytosis RARE Macrocytosis RARE Sodium 139 Potassium 4.5 Chloride 104 Carbon Dioxide 32.0 Anion Gap 3 L BUN 17 Creatinine 1.19 Estim Creat Clear Calc 52.73 Est GFR (MDRD) Af Amer 76 Est GFR (MDRD) Non-Af 63 BUN/Creatinine Ratio 14.3 Glucose 175 H Calcium 8.5 Radiography Diagnostic Testing: Clinical Impression(s) from Imaging Studies Chest CTA 11/24/22 15:01 IMPRESSION: 1. No evidence of pulmonary embolus. 2. A small extrapleural collection of gas in the left base. This is at the site of the previous effusion or empyema. There are pleural calcifications present at the site. 3. Slightly spiculated lesion seen within the left apex and superior segment of the left lower lobe which may represent areas of scar formation or possibly underlying malignancy. If indicated further evaluation with PET/CT scan may be beneficial. Electronically Signed: Chuckie Ford MD at 16:16 EDT , Discharge Plan Triage Chief Complaint: Chest Pain ED Provider: Cristi Godinez Dx/Rx/DC Orders Clinical Impression: Scarring of lung, Left-sided chest wall pain Instructions: ED Chest Pain, Uncertain Cause Prescriptions: No Action oxycodone 5 mg tablet 2.5 mg PO Q6H PRN fluticasone propion-salmeterol [Advair HFA] 230-21 mcg/actuation HFA aerosol inhaler 2 puff inhalation BID nitroglycerin 0.4 MG tablet 0.4 mg SL PRN PRN (Reason: Chest Pain) Patient Comments: Chest pain aspirin 81 MG tablet,chewable 81 mg PO DAILY@0800 Patient Comments: heart, blood thinner clopidogrel 75 MG tablet 75 mg PO DAILY atorvastatin [Lipitor] 20 mg tablet 20 mg PO DAILY Patient Comments: TAKE 1 TABLET BY MOUTH EVERY DAY polyethylene glycol 3350 [Miralax] 17 gram Powder In Packet 17 g PO BID PRN (Reason: Constipation) lorazepam [Ativan] 1 mg tablet 0.5 - 1 mg PO TID PRN (Reason: Anxiety) Patient Comments: TAKE 1 TABLET BY MOUTH THREE TIMES DAILY FOR 90 DAYS. Mucinex 1,200 mg Tablet Extended Release 12hr 1,200 mg PO BID acetaminophen [Tylenol] 325 mg Tablet 650 mg PO Q4H PRN (Reason: Pain) albuterol sulfate 2.5 mg /3 mL (0.083 %) solution for nebulization 2.5 mg INHALATION Q4H PRN (Reason: J44.9 COPD) Qty: 120 6RF prednisone 10 mg tablet 10 mg PO QDAY Qty: 90 3RF Hold Instructions: Resume on 12/28/21. hold while on prednisone burst & taper Spiriva Respimat 2.5 mcg/actuation mist 2 puff INHALATION Q24H Qty: 4 6RF Rx Instructions: administer at approximately the same time(s) each day levalbuterol tartrate 45 mcg/actuation HFA aerosol inhaler 2 inh inhalation Q4H PRN (Reason: shortness of breath or wheezing) Qty: 15 11RF Primary Care Provider: Mei Cummins Referrals: Mei Cummins MD [Primary Care Provider] - 3-5 Days Disposition Disposition: Home, Self Care What to do if you have Problems For any increased pain, shortness of breath, bleeding, nausea or vomiting, chestpain, or any unexpected problems, contact your Primary Care Provider. Call [facility] ([phone]) or report to the closest Emergency Room. Call 911 if necessary. 11/24/22 1656 <Electronically signed by Cristi Godinez MD> Cosigner Signature (if applicable): CC: Dr. Mei Cummins MD ~ Signed [facility] Work Phone: [phone] 630-798509-25-2023 Miscellaneous Notes* Telephone Encounter - Jamshid Brown APRN.CNP - 11/24/2022 1:47 PM EDT The following approved medication requests have been transmitted electronically. Requested Prescriptions Pending Prescriptions Disp Refills nitroglycerin sublingual (NITROSTAT) 0.4 mg SL tablet 25 tablet 1 Sig: Dissolve 1 tablet under the tongue every 5 minutes as needed. Jmashid Brown APRN.LEGAL STENOGRAPHER * Telephone Encounter - Erica Hunt LPN - 11/24/2022 1:24 PM EDT Patient phones requesting refills as follows: Requested Prescriptions Pending Prescriptions Disp Refills nitroglycerin sublingual (NITROSTAT) 0.4 mg SL tablet Sig: Dissolve 1 tablet under the tongue every 5 minutes as needed. JOSE M-09/19/22 Labs-11/11/22 NOV-12/19/22 Please review and advise. Erica Hunt LPN documented in this encounterPromedica Memorial Hospital09-19-2023 Instructions* Patient Instructions* Juan Carlos Viveros - 11/18/2022 3:40 PM EDT Powerstep Original Full length. Can purchase at [employer] here in [place], [employer] in [place] or [place]. Also can find in [place] in [facility]. Powersteps can also be purchased online, starting around $45.00 If you have a metatarsal or dancer pad for your feet apply the pad directly to the insole so you can interchange between your shoes. Find a shoe with a removable insole and take this out and replace with your powerstep insole. Always bring powersteps with you when shopping for shoes so that you can make sure that everything fits well together documented in this encounterPromedica Memorial Hospital09-19-2023 History of Present illness Narrative* Juan Carlos Viveros - 11/18/2022 3:35 PM EDT Images from the original note were not included. Initial Podiatric Office Visit: Chief Complaint: This 82 year old male who presents with chief complaint:numbness/achyness in rightfoot HPI Patient presents to clinic for evaluation of right foot For the past few weeks, he has been experiencing numbness/achyness to his right arch The pain is most intense at night after he has been active. Patient is not currently doing anything for the pain He has history of ulceration. This remains healed. PAIN EVALUATION 11/18/2022 1528 Pain Level: 3 Pain Location: Heel-Right Description: Burning Duration Amount of Time: -- few Duration Units: Weeks Frequency: Intermittent Intervention/Comfort measure: Relaxation;Reposition Hemoglobin A1C (%) Date Value 06/24/2022 5.0 04/30/2022 5.4 01/04/2018 5.5 PCP: Mei Cummins MD PAST MEDICAL HISTORY Diagnosis Date Abdominal aortic aneurysm (AAA) without rupture (HCC) 11/19/2018 Atypical chest pain CAD (coronary artery disease) s/p CABG 1999, PCI w/ stents COPD (chronic obstructive pulmonary disease) (HCC) Hyperlipidemia Hyperlipidemia Hypertension Lung cancer (HCC) Prostate cancer (HCC) Dx Dec 2014, s/p radiation, on hormonal therapy Ulcer of right foot (HCC) 04/30/2022 Current Outpatient Medications Medication Sig SPIRIVA RESPIMAT 2.5 mcg/actuation inhaler Inhale 2 Puffs as instructed once daily. tiotropium (SPIRIVA WITH HANDIHALER) 18 mcg inhalation capsule Inhale 1 capsule as instructed once daily. Use with handihaler. predniSONE (DELTASONE) 10 mg tablet Take 1 tablet by mouth once daily. LORazepam (ATIVAN) 1 mg tablet Take 1 tablet by mouth three times daily for 90 days. atorvastatin (LIPITOR) 40 mg tablet Take 1 tablet by mouth once daily. ADVAIR HFA 230-21 mcg/actuation inhaler Inhale 2 Puffs as instructed twice daily. clopidogrel (PLAVIX) 75 mg tablet Take 1 tablet by mouth once daily. acetaminophen 325 mg cap Take 650 mg by mouth. oxyCODONE IR (ROXICODONE) 5 mg immediate release tablet TAKE 1/2 TABLET BY MOUTH 4 TIMES DAILY NEEDED FOR SHORTNESS OF BREATH tamsulosin (FLOMAX) 0.4 mg Take 0.4 mg by mouth once daily. guaiFENesin (MUCINEX) 600 mg 12 hr tablet Take 2 tablets by mouth twice daily. nitroglycerin sublingual (NITROSTAT) 0.4 mg SL tablet Dissolve 1 tablet under the tongue every 5 minutes as needed. DULoxetine (CYMBALTA) 30 mg capsule 1 capsule once daily. ondansetron (ZOFRAN) 4 mg tablet 1 tablet as needed. aspirin, enteric coated (ASPIRIN, ENTERIC COATED) 81 mg EC tablet Take 81 mg by mouth once daily. albuterol HFA (PROAIR HFA) 90 mcg/actuation inhaler Inhale 2 Puffs as instructed every 4 hours as needed for Wheezing/Shortness of Breath. No current facility-administered medications for this visit. ALLERGIES Allergen Reactions Imdur [Isosorbide M* Hives Black out and dizziness PAST SURGICAL HISTORY Procedure Laterality Date ANGIOGRAM EXTREMITY LUNG BIOPSY Left needle biopsy LUNG SURGERY HX 02/20/20 lt lung nodule removed PAST SURGICAL HISTORY OF TURP PAST SURGICAL HISTORY OF 03/02/1999 triple bypass PAST SURGICAL HISTORY OF Left 09/04/2022 Skin biopsy left upper cheek face PAST SURGICAL HISTORY OF LE vascular FAMILY HISTORY Problem Relation Age of Onset Cancer Mother 49 breast, bone Diabetes Father Heart Father Cancer Sister breast Emphysema Sister Smoker Diabetes Brother Heart Brother other (Other) Brother Parkinsons Diabetes Paternal Grandmother Heart Paternal Grandmother Social History Tobacco Use Smoking status: Former Packs/day: 2.00 Years: 40.00 Additional pack years: 0.00 Total pack years: 80.00 Types: Cigarettes Start date: 11/08/1962 Quit date: 05/13/2002 Years since quittin.5 Smokeless tobacco: Never Vaping Use Vaping Use: Never used Substance Use Topics Alcohol use: Not Currently Alcohol/week: 3.0 standard drinks of alcohol Types: 3 Cans of beer per week Comment: light beer Drug use: No REVIEW OF SYSTEMS GENERAL: Negative for Malaise, significant weight loss, fever RESPIRATORY: Negative for cough, wheezing and shortness of breath CARDIOVASCULAR: Negative for chest pain, leg swelling and palpitations GI: Negative for abdominal discomfort, blood in stools or black stools and change in bowel habits : Negative for dysuria, frequency and incontinence MUSCULOSKELETAL: Negative for joint pain or swelling, back pain, and muscle pain. SKIN: Negative for lesions, rash, and itching. HEMATOLOGY/LYMPHOLOGY Negative for prolonged bleeding, bruising easily, and swollen nodes. ENDOCRINE: Negative for cold or heat intolerance, polyuria, polydipsia and goiter. NEURO: negative Physical Exam: Constitutional: Pt is a well developed 82 year old male who is alert, oriented and cooperative Eyes: Following during examination. No redness or drainage. Respiratory: RR normal and nonlabored. Even breathing. No evidence of distress or shortness of breath. Psychology: Patient is engaged during conversation. Normal affect and mood. Does not appear depressed or anxious during encounter. Vascular: Dorsalis pedis and posterior tibial pulses nonpalpable as b/l Capillary Fill time < 5 seconds to digits 1-5 b/l Skin temperature warm to cool proximal to distal b/l Hair growth present to digits Neurological: intact light touch/epicritic sensation b/l intact protective sensation no significant neurological deficits Dermatological: Nails 1-5 b/l appear normal. Webspaces clean and dry 1-4 b/l. Skin appears well hydrated and supple. good color, texture, turgor. No open lesions present. No callosities present. Musculoskeletal/Orthopaedic: Patient has pain to palpation of medial and lateral arch right Foot type is pronated structurally AJ ROM is full with knee extended and flexed 1st MPJ is full when loaded and no pain or crepitus are noted with ROM. MTJ, STJ are full and free of pain and crepitus. +5/5 muscle strength dorsiflexion, plantarflexion, inversion, eversion b/l Radiographs: n/a ASSESSMENT: (M76.829) Posterior tibial tendon dysfunction (primary encounter diagnosis) PLAN: 1. History and physical examination performed. 2. Discussed pain in right foot. Suspect component of flatfoot 3. Offered inserts but patient declined. 4. Powerstep gel inserts offered Juan Carlos Viveros DPM Podiatry [address] [facility] [address] Dept: [phone] Dept * Yina Stringer, GILMAR - 11/18/2022 3:28 PM EDT AMB ROOMING INTAKE FLOWSHEET DATA Pain Pain Level: 3 Pain Location: Heel-Right Description: Burning Duration Amount of Time: (few) Duration Units: Weeks Frequency: Intermittent Intervention/Comfort measure: Relaxation, Reposition Patient presents with: Right Foot - Established Patient, Pain Patient presents for Right heel pain that has been intermittent for a few weeks. Patient states that it tends to hurt after being on his feet a lot throughout the day. Pain to outer side of heel. Area of previous ulcer is healed but dry clipper tender to touch sometimes. documented in this encounterPromedica Memorial Hospital09-19-2023 History of Present illness Narrative* Summer Grant, RT(R) - 11/18/2022 3:00 PM EDT Radiology Service Progress Note DATE OF SERVICE: November 18, 2022 TIME: 3:45 PM PATIENT IDENTITY VERIFICATION COMPLETED USING TWO (2) STANDARD IDENTIFIERS: Name and Date of confirmed by patient verbally. FALL SCREENING: Has the patient had 2 falls in the last year or 1 fall with injury or currently using an Ambulatory Assistive Device (Walker, Cane, Wheelchair, Crutches, etc.)? No PATIENT GENDER DATA: Male PATIENT RELEVANT IMPLANT DATA REVIEWED: Yes ALLERGIES: Reviewed and unchanged CONTRAST ALLERGY: NO. EXAM: CT -CONTRAST INDUCED NEPHROPATHY RISK FACTORS: Patient age > 60 years CREATININE: Creatinine Date Value Ref Range Status 11/11/2022 0.95 0.73 - 1.22 mg/dL Final 06/24/2022 0.88 0.73 - 1.22 mg/dL Final 05/16/2022 0.73 0.73 - 1.22 mg/dL Final Estimated Glomerular Filtration Rate Date Value Ref Range Status 11/11/2022 81 >=60 mL/min/1.73m Final Comment: Estimated Glomerular Filtration Rate (eGFR) is calculated using the 2020 CKD-EPI creatinine equation. This equation utilizes serum creatinine, sex, and age as parameters. The creatinine assay has traceable calibration to isotope dilution- mass spectrometry. Refer to KDIGO guidelines for clinical interpretation. In patients with unstable renal function, e.g. those with acute kidney injury, the eGFRmay not accurately reflect actual GFR. eGFR- Date Value Ref Range Status 04/23/2021 >60 Final P.O.C.T. RESULTS: POC done: Yes, See Lab Tab November 18, 2022 TREATMENT: N/A PERIPHERAL IV DATA: Ambulatory: A peripheral IV was started in the Left antecubital site with a Angio cath: 22 gauge. RADIOLOGY DEPARTMENT: CT; Exam(s) Completed: Chest Abdomen Pelvis SIGNATURE: RT Joey(R) PATIENT NAME: Oswaldo Corley DATE: November 18, 2022 TIME: 3:45 PM documented in this encounterPromedica Memorial Hospital09-18-2023 Miscellaneous Notes* Telephone Encounter - Jamshid Brown APRN.CNP - 11/17/2022 1:38 PM EDT The following approved medication requests have been transmitted electronically. Requested Prescriptions Pending Prescriptions Disp Refills tiotropium (SPIRIVA WITH HANDIHALER) 18 mcg inhalation capsule 30 capsule 11 Sig: Inhale 1 capsule as instructed once daily. Use with handihaler. Jamshid Brown APRN.CNP * Telephone Encounter - Erica Hunt LPN - 11/17/2022 1:29 PM EDT Patient phones requesting refills as follows: Requested Prescriptions Pending Prescriptions Disp Refills tiotropium (SPIRIVA WITH HANDIHALER) 18 mcg inhalation capsule Sig: Inhale 1 capsule as instructed once daily. Use with handihaler. JOSE M-09/19/22 Labs-11/11/22 NOV-12/19/22 Please review and advise. Erica Hunt LPN documented in this encounterPromedica Memorial Hospital09-08-2023 Procedure note* Ann Knox RPFT - 11/07/2022 1:22 PM EDTAssociated Order(s): OXIMETRY WITH AMBULATION RESPIRATORY THERAPY OXIMETRY WITH AMBULATION Oximetry with Ambulation Test for This Encounter O2 Device O2 Adapter NC O2 Flow SpO2% HR Activity Ft Walked (ft) Time (min) Avg Speed (MPH) NC 3 96 103 Resting NC 3 93 128 Walking, usual pace 360 3 1.36 General Information Pulse Oximetry Site Total Time Spent O2 Supply Carrier Walking Assistance/Device R Index Finger 15 Other: See Comment None NAME: JULIEN Lovell PATIENT NAME: Oswaldo Corley DATE: November 07, 2022 TIME: 1:23 PM Comment: Patient used own pulse dose portable concentrator. walk test performed to check that home unit was sufficient. patient with unsteady gait, unable to walk at faster pace. documented in this encounterPromedica Memorial Hospital09-08-2023 History of Present illness Narrative* Ann Knox RPFT - 11/07/2022 1:02 PM EDT PULM FUNCTION SMARTBLOCK: Provider: Ab Calvillo MD Assisting Tech: Ann Knox RPFT Oximetry - Ambulation: 1 documented in this encounterPromedica Memorial Hospital09-07-2023 Miscellaneous Notes* Telephone Encounter - Tyerll Lamar LPN - 11/06/2022 9:49 AM EDT JOSE M 10/13/22 Patient phones requesting refills as follows: Requested Prescriptions Pending Prescriptions Disp Refills predniSONE (DELTASONE) 10 mg tablet 30 tablet 5 Sig: Take 1 tablet by mouth once daily. Please review and advise. Tyrell Lamar LPN documented in this encounterPromedica Memorial Hospital08-24-2023 Miscellaneous Notes* Telephone Encounter - Summer Bose LPN - 10/23/2022 3:15 PM EDT Faxed order for Oxygen, pulse oximetry services to [facility] [place]. Summer Bose LPN documented in this encounterPromedica Memorial Hospital08-22-2023 Miscellaneous Notes* Telephone Encounter - Vickie Carrillo Ma - 10/21/2022 5:18 PM EDT Faxed to [phone]. Vickie Carrillo Ma * Telephone Encounter - Malu Tavares Ma - 10/21/2022 1:26 PM EDT Type of letter/form/fax request - Medical Necessity-Re: Oxygen Form received from fax on 1 floor and placed on MD desk (Dr. Cummins) for completion. Completed form needs to be fax[place] to [facility] [place]. Route to [facility] when form completed for processing documented in this encounterPromedica Memorial Hospital08-14-2023 History of Present illness Narrative* Ab Calvillo MD - 10/13/2022 12:45 PM EDT . Respiratory [place] Note Patient name: Oswaldo Corley PCP: Mei Cummins MD CC: COPD HPI: Oswaldo Corley 82 year old male former 80 pack year smoker, quitting in 2002 with PMH significant for CAD s/p CABG and stents, AAA, DM, HTN, HLD, prostate cancer s/p radation and hormonal therapy, lung cancer, COPD (FEV1 1.43 L 45%) last seen in pulmonary clinic in 2015. He had opted to follow-up with pulmonary at [facility]. History notable for suspicious LLL nodule 2019, s/p CT guided biopsy which was non-diagnostic and resulted in PTX. Subsequent left mini thoracotomy with wedge resection showed moderately differentiated squamous cell carcinoma, s/p radiation to LLL completing therapy in 2020. He has had a chronic small hydropneumothorax since his surgery. Surveillance chest CT 07/2020 showed multifocal PNA with SULAIMAN cavitary nodule. Bronchoscopy pertinent for MSSAand Strep mitis. States he has not been doing well since his surgery. He was previously on oxygen only at night but since his surgery has required full-time oxygen. His main symptom is severe dyspneaon exertion. He is very limited in his daily living activities. He had previously participated in pulmonary rehab but has no desire to revisit evaluation. He has a chest vest which he uses once a daywhich is helpful for mucus clearance. He denies significant wheezing or chest pain. He is on tripleinhaler therapy, chronic oral steroids, mucus clearance techniques, supplemental oxygen. Palliativecare is involved and prescribed low-dose narcotic which has helped his dyspnea. He was questioning whether he would be a possible candidate for a [place] valve to improve his shortness of breath and quality of life. No history of recurrent pneumonia or bronchitis. He has never been intubated for hisCOPD. Last CT of the chest was a year ago which showed no new changes suspicious of recurrence of cancer. He is due for his yearly CT next month. 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 Lines, tubes, and devices: None. Lung parenchyma and airways: Stable 6 mm nodule left apex, 6:23. Stable appearance of irregular scarring in the posterior lateral left upper lobe. Stable 6 mm adjacent nodule in the left upper lobe, 6:66. Stable appearance of 1.5 cm presumed consolidation anterolaterally in the right lower lobe, 6:157. This is also unchanged compared with 11/07/2020 CT. Stable appearance of bilateral lower lobe minimal bronchiectasis and widely scattered reticular densities in the lung. Pleural space: Stable appearance of small left hydropneumothorax. Right-sided scattered calcified pleural plaques are again noted. Lower neck, lymph nodes, and mediastinum: The imaged thyroid gland is normal. No lymphadenopathy inthe supraclavicular, axillary, mediastinal, or hilar regions. Heart, pericardium, and thoracic vessels: The thoracic aorta and main pulmonary artery are normal in caliber. The cardiac chambers are normal in size. coronary artery atherosclerotic calcifications are noted, although the study is not optimized for coronary assessment. No pericardial effusion or thickening. Bones and soft tissues: No destructive bone lesion. Old appearing Posterior lateral left rib is again noted, 6:119. Chest wall is unremarkable. Upper abdomen: Suspected small noncalcified gallstones. Envelope Stuffer (topogram) images: Sternotomy sutures. Hyperexpansion of the chest. Scarring at the left base. IMPRESSION: Stable findings as detailed. No suspicion for active neoplasm I personally reviewed the images as well as with the patient and agree with the above assessment PAST MEDICAL HISTORY Diagnosis Date Abdominal aortic aneurysm (AAA) without rupture (HCC) 11/19/2018 Atypical chest pain CAD (coronary artery disease) s/p CABG 1999, PCI w/ stents COPD (chronic obstructive pulmonary disease) (HCC) Hyperlipidemia Hyperlipidemia Hypertension Lung cancer (HCC) Prostate cancer (HCC) Dx Dec 2014, s/p radiation, on hormonal therapy Ulcer of right foot (HCC) 04/30/2022 ALLERGIES Allergen Reactions Imdur [Isosorbide M* Hives Black out and dizziness ADVAIR HFA 230-21 mcg/actuation inhaler Inhale 2 Puffs as instructed twice daily. predniSONE (DELTASONE) 10 mg tablet Take 10 mg by mouth once daily. guaiFENesin (MUCINEX) 600 mg 12 hr tablet Take 2 tablets by mouth twice daily. tiotropium (SPIRIVA WITH HANDIHALER) 18 mcg inhalation capsule Inhale 1 capsule as instructed once daily. Use with handihaler. LORazepam (ATIVAN) 1 mg tablet Take 1 tablet by mouth three times daily for 90 days. atorvastatin (LIPITOR) 40 mg tablet Take 1 tablet by mouth once daily. clopidogrel (PLAVIX) 75 mg tablet Take 1 tablet by mouth once daily. acetaminophen 325 mg cap Take 650 mg by mouth. oxyCODONE IR (ROXICODONE) 5 mg immediate release tablet TAKE 1/2 TABLET BY MOUTH 4 TIMES DAILY NEEDED FOR SHORTNESS OF BREATH tamsulosin (FLOMAX) 0.4 mg Take 0.4 mg by mouth once daily. nitroglycerin sublingual (NITROSTAT) 0.4 mg SL tablet Dissolve 1 tablet under the tongue every 5 minutes as needed. DULoxetine (CYMBALTA) 30 mg capsule 1 capsule once daily. ondansetron (ZOFRAN) 4 mg tablet 1 tablet as needed. aspirin, enteric coated (ASPIRIN, ENTERIC COATED) 81 mg EC tablet Take 81 mg by mouth once daily. albuterol HFA (PROAIR HFA) 90 mcg/actuation inhaler Inhale 2 Puffs as instructed every 4 hours as needed for Wheezing/Shortness of Breath. Social History Tobacco Use Smoking status: Former Packs/day: 2.00 Years: 40.00 Additional pack years: 0.00 Total pack years: 80.00 Types: Cigarettes Start date: 11/08/1962 Quit date: 05/13/2002 Years since quittin.4 Smokeless tobacco: Never Vaping Use Vaping Use: Never used Substance Use Topics Alcohol use: Not Currently Alcohol/week: 3.0 standard drinks of alcohol Types: 3 Cans of beer per week Comment: light beer Drug use: No Worked for 36 years in the [employer] [place] with exposure to chemicals Pets: Cats FAMILY HISTORY Problem Relation Age of Onset Cancer Mother 49 breast, bone Diabetes Father Heart Father Cancer Sister breast Emphysema Sister Smoker Diabetes Brother Heart Brother other (Other) Brother Parkinsons Diabetes Paternal Grandmother Heart Paternal Grandmother PAST SURGICAL HISTORY Procedure Laterality Date ANGIOGRAM EXTREMITY LUNG BIOPSY Left needle biopsy LUNG SURGERY HX 02/20/20 lt lung nodule removed PAST SURGICAL HISTORY OF TURP PAST SURGICAL HISTORY OF 03/02/1999 triple bypass PAST SURGICAL HISTORY OF Left 09/04/2022 Skin biopsy left upper cheek face PAST SURGICAL HISTORY OF LE vascular PMH, Social history, family history and surgical history reviewed and updated in EMR REVIEW OF SYSTEMS: CONSTITUTIONAL: No fevers, chills, nightsweats, unintended weight loss. Fatigue HEENT: Denies nasal congestion/sinus symptoms, problematic allergy problems, epistaxis EYES: No diplopia or blurry vision. CARDIOVASCULAR: No chest pain, palpitations, orthopnea, PND, edema. PULM: See HPI GI: No dysphagia/odynophagia, problematic reflux, constipation, diarrhea, changes in stool habits : No urinary complaints, including dysuria, gross hematuria or pyuria. NEURO: No new balance problems, peripheral weakness/paresthesias or numbness of concern. MUSC-SKEL: No new joint pain, swelling, or erythema. Lower extremity weakness PSY: No concerns regarding depression, anxiety INTEGUMENTARY: No new skin changes or rashes PHYSICAL EXAMINATION: Pulse 68 Resp 16 Ht 5' 9.2 (1.76m) Wt 183 lb (83.0kg) SpO2 95% BMI 26.86 kg/(m^2). General Appearance: Frail elderly male in wheelchair. Skin: Skin color, texture, turgor normal, no suspicious rashes or lesions. Head: Normocephalic, no masses, lesions, tenderness or abnormalities. Eyes: Sclera, conjunctiva normal. Oropharynx: No oral lesions or thrush. Neck: No JVD, no masses, no TM. Lungs: Not labored, normal to percussion, crackles in right base, no wheezes Heart: RRR, no murmur. Extremities: No edema, no clubbing. Musculoskeletal: No joint deformities, no effusions. Neurologic: Alert and oriented, no focal findings. Lymph Nodes: No cervical lymphadenopathy and No supraclavicular lymphadenopathy. Assessment/Plan: 1. Severe COPD, GOLD 3 -Made no change in his inhaled therapy. He is on triple inhaler therapy -He is not a candidate for [place] valve as he lacks significant emphysema changes with hyperinflation -Recommend pulmonary rehab -Recommend pneumonia 23 valent booster and RSV vaccine -Recommend against use of chronic oral steroids 2. Dependence on supplemental oxygen -Patient benefits from and is compliant with supplemental oxygen 3. History lung cancer, LLL -Due for yearly CT -Follows with oncology as well -No evidence of recurrence on last imaging 4. Bronchiectasis -Recommend 2 times daily use of his chest vest -No need for suppressive azithromycin therapy at this time 5. Chronic hydropneumothorax -No intervention I spent a total of 63 minutes on the date of the service which included preparing to see the patient, [id number] patient care, completing clinical documentation, obtaining and/or reviewing separately obtained history, performing a medically appropriate examination, counseling and educating the pat ient/family/caregiver, and independently interpreting results (not separately reported). Activity Duration Pre-charting < 1 minute Chart accessed 3 minutes Exam room 38 minutes Exam room 1 minute Exam room < 1 minute Exam room 1 minute Chart accessed 4 minutes Current session 12 minutes Total time: 1 hour 3 minutes* Ab Calvillo MD Respiratory [place] documented in this encounterPromed[facility]08-14-[facility]23 History of Present illness Narrative* Ann Knox RPFT - 10/13/2022 11:30 AM EDT PULM FUNCTION SMARTBLOCK: Provider: Ab Calvillo MD Assisting Tech: Ann Knox RPFT Spirometry w/BD: 1 DLCO: 1 documented in this encounterPromedica [facility]08-14-2023 Nurse Note* Tyrell Lamar LPN - 10/13/2022 11:30 AM EDT Intake information documented in the prior visit with JULIEN Lovell today. documented in this encounterPromedica [facility] Hospital07-31-2023 Instructions* Patient Instructions* Bela Manzano MD - 09/29/2022 2:29 PM EDT We are increasing the Lipitor (Atorvastatin) to 40 mg once per day Repeat fasting blood work in 4-5 months documented in this encounterPromedica [facility] Hospital07-31-2023 History of Present illness Narrative* Bela Manzano MD - 09/29/2022 2:00 PM EDT Images from the original note were not included. [facility] CARDIOLOGY Cardiology ([facility]) [address] [id number] OUTPATIENT VISIT DATE 09/29/2022 PRIMARY CARE PHYSICIAN: Mei Cummins [address] [place] [address] HISTORY OF PRESENT ILLNESS: Mr. Corley is a 82 year old gentleman with coronary artery disease and remote coronary bypass grafting, hypertension, dyslipidemia, COPD, with a history of squamous cell carcinoma status post thoracotomy with left lower lobe lung wedge resection and radiation therapy, and peripheral arterial disease with right femoral artery endarterectomy and iliac stent placement in April 2022 who presents for routine follow-up. Patient reports marked improvement in wound healing in his right lower extremity after his surgery. He has not had symptoms of chest pain or pressure. He has chronic shortness of breath and dyspnea on exertion which is unchanged from prior. Is compliant with his oxygen therapy. He has not had symptoms concerning for CHF including PND, orthopnea, or lower extremity edema. He denies palpitations, lightheadedness, dizziness, or syncope. PAST MEDICAL HISTORY Diagnosis Date Abdominal aortic aneurysm (AAA) without rupture (HCC) 11/19/2018 Atypical chest pain CAD (coronary artery disease) s/p CABG 1999, PCI w/ stents COPD (chronic obstructive pulmonary disease) (HCC) Diabetic ulcer of right foot (HCC) 04/30/2022 Hyperlipidemia Hyperlipidemia Hypertension Prostate cancer (HCC) Dx Dec 2014, s/p radiation, on hormonal therapy PAST SURGICAL HISTORY Procedure Laterality Date ANGIOGRAM EXTREMITY LUNG BIOPSY Left needle biopsy LUNG SURGERY HX 02/20/20 lt lung nodule removed PAST SURGICAL HISTORY OF TURP PAST SURGICAL HISTORY OF 03/02/1999 triple bypass PAST SURGICAL HISTORY OF Left 09/04/2022 Skin biopsy left upper cheek face SOCIAL HISTORY Social History Tobacco Use Smoking status: Former Packs/day: 2.00 Years: 40.00 Total pack years: 80.00 Types: Cigarettes Start date: 11/08/1962 Quit date: 05/13/2002 Years since quittin.3 Smokeless tobacco: Never Vaping Use Vaping Use: Never used Substance Use Topics Alcohol use: Not Currently Alcohol/week: 3.0 standard drinks of alcohol Types: 3 Cans of beer per week Comment: light beer Drug use: No FAMILY HISTORY Problem Relation Age of Onset Cancer Mother breast, bone Cancer Sister breast Emphysema Sister Smoker Diabetes Father Heart Father Diabetes Brother Heart Brother other (Other) Brother Parkinsons Diabetes Paternal Grandmother Heart Paternal Grandmother ALLERGIES: ALLERGIES Allergen Reactions Imdur [Isosorbide M* Hives Black out and dizziness MEDICATIONS: LORazepam (ATIVAN) 1 mg tablet Take 1 tablet by mouth three times daily for 90 days. ADVAIR HFA 230-21 mcg/actuation inhaler Inhale 2 Puffs as instructed twice daily. clopidogrel (PLAVIX) 75 mg tablet Take 1 tablet by mouth once daily. atorvastatin (LIPITOR) 20 mg tablet Take 1 tablet by mouth once daily. acetaminophen 325 mg cap Take 650 mg by mouth. oxyCODONE IR (ROXICODONE) 5 mg immediate release tablet TAKE 1/2 TABLET BY MOUTH 4 TIMES DAILY NEEDED FOR SHORTNESS OF BREATH budesonide-formoterol (SYMBICORT) 160-4.5 mcg/actuation inhaler Inhale 2 Puffs as instructed twice daily. tamsulosin (FLOMAX) 0.4 mg Take 0.4 mg by mouth once daily. predniSONE (DELTASONE) 10 mg tablet Take 10 mg by mouth once daily. guaiFENesin (MUCINEX) 600 mg 12 hr tablet Take 2 tablets by mouth twice daily. nitroglycerin sublingual (NITROSTAT) 0.4 mg SL tablet Dissolve 1 tablet under the tongue every 5 minutes as needed. DULoxetine (CYMBALTA) 30 mg capsule 1 capsule once daily. ondansetron (ZOFRAN) 4 mg tablet 1 tablet as needed. aspirin, enteric coated (ASPIRIN, ENTERIC COATED) 81 mg EC tablet Take 81 mg by mouth once daily. DULERA 200-5 mcg/actuation inhaler Take 2 Puffs by mouth twice daily. tiotropium (SPIRIVA WITH HANDIHALER) 18 mcg inhalation capsule Inhale 1 capsule as instructed once daily. Use with handihaler. albuterol HFA (PROAIR HFA) 90 mcg/actuation inhaler Inhale 2 Puffs as instructed every 4 hours as needed for Wheezing/Shortness of Breath. REVIEW OF SYSTEMS: Review of Systems Constitutional: Positive for malaise/fatigue. Negative for chills, fever and weight loss. HENT: Negative for hearing loss and sore throat. Eyes: Negative for blurred vision and double vision. Respiratory: Positive for shortness of breath. Cardiovascular: Negative. Gastrointestinal: Negative. Genitourinary: Negative for dysuria, frequency, hematuria and urgency. Musculoskeletal: Positive for back pain, joint pain and myalgias. Skin: Negative. Neurological: Negative for dizziness, seizures, loss of consciousness, weakness and headaches. Endo/Heme/Allergies: Negative for environmental allergies. Does not bruise/bleed easily. Psychiatric/Behavioral: Negative for depression. PHYSICAL EXAMINATION: BP 153/76 Pulse 80 Ht 5' 11 (1.80m) Wt 182 lb (82.6kg) SpO2 99% BMI 25.40 kg/(m^2). General: Pleasant gentleman sitting appears comfortable no apparent distress alert and oriented x3 HEENT: Carotid upstrokes are brisk bilaterally without bruits. No JVD appreciated. Pulmonary: Diminished breath sounds noted throughout. No rales, wheezes, rhonchi Cardiovascular: Normal S1, S2 with a regularly irregular pulse and normal rate.. No murmurs, rubs, or gallops Extremities: Warm, well-perfused, no lower extremity edema. 2+ radial pulses CARDIOVASCULAR MEDICINE TESTING: ECG in the office 09/29/2022: Normal sinus rhythm with frequent PVCs. Nonspecific ST-T wave changes ECG in the office April 29, 2021: Normal sinus rhythm with frequent PVCs. Possible left atrial enlargement. CORONARY ANGIOGRAPHY 03/14/15 LM: 10-20% ostial stenosis proximal to the stent which is widely patent and extends into the LAD. LAD: Moderate sized vessel which gives a small first diagonal branch and larger second diagonal branch. There is diffuse 10-20% stenosis in the proximal vessel. The distal vessel is of smaller caliper but has no significant stenosis. The first diagonal branch has mild narrowing at its ostium but is a tiny vessel. The larger second diagonal branch is normal. LCX: Non-dominant vessel which gives a tiny first marginal branch and large second bifurcating marginal branch. There is 70-80% diffuse stenosis in the proximal vessel and a second 60-70% stenosis atthe bifurction on the OM2. The OM2 fills competitively from the [place] LCX and the SVG. RCA: Dominant vessel which is stented from the proximal-distal portion. There is 20-30% diffuse ISRwith 50-60% ISR in the mid vessel. The LAD has mild diffuse stenoses with a diiscreet 30-40% lesiondistally. SVG-OM: Patent with 40-50% stenosis in an area of some mild toruosity. FFR was performed of the mid RCA lesion and was 0.87. ASSESSMENT Severe single vessel coronary artery disease of the left circumflex artery with a patent bypass graft to the OM. Moderate right coronary artery disease which was not hemodynamically significant by FFR. Regadenoson Myoview Stress 04/24/2022 CONCLUSIONS: 1. SPECT Perfusion Study: Abnormal. 2. There is mild (<10%) ischemia in the territory of the RCA. 3. There is a small (<10%) fixed perfusion defect in the RCA territory. 4. Left ventricle is normal in size. The left ventricle systolic function is mildly decreased. 5. Right ventricle is normal in size. The right ventricle systolic function is normal. 6. This is an intermediate risk scan due to area of scar/ischemia. Gated Stress IR:3D LVEF % 50 Echocardiogram 04/24/2022: - Technically difficult exam due to body habitus. - Exam indication: Hypertension - The left ventricle is normal in size. There is moderate left ventricular hypertrophy. Left ventricular systolic function is normal. EF = 56 5% (2D biplane) Definity contrast used for endocardial border detection. Grade I left ventricular diastolic dysfunction. - The right ventricle is normal in size. Right ventricular systolic function is normal. - The visualized aorta is borderline dilated with a maximal dimension of 3.9 cm. - Mild 1+ mitral regurgitation. - Mild to moderate (1-2+) aortic regurgitation. - Estimated right ventricular systolic pressure is 33 mmHg consistent with normal pulmonary artery pressures. Estimated right atrial pressure is 8 mmHg based on IVC assessment. - Exam was compared with the prior echocardiographic exam performed on 09/23/10. The mitral regurgitation and the aortic regurgitation have increased. PVR 06/18/2022: IMPRESSION Compared to prior study of 12/25/2021, Right waveform tracings and doppler signals have improved. RIGHT SIDE Resting right ankle brachial index: 1.85 Non-compressible arteries, TRAE not accurate. Right toe brachial index: 0.44 Non-compressible vessels, results called by PVR tracings. Abnormal toe brachial index at rest is evidence of peripheral artery disease. Right ankle: Moderate disease at rest. LEFT SIDE Resting left ankle brachial index: 1.85 Non-compressible arteries, TRAE not accurate. Left toe brachial index: 0.45 Non-compressible vessels, results called by PVR tracings. Abnormal toe brachial index at rest is evidence of peripheral artery disease. Left ankle: Moderate disease at rest. PVR 12/18/2020: IMPRESSION Compared to prior study of 12/16/2019, appears no significant change in waveforms at ankle. Non compressible arteries. RIGHT SIDE Resting right ankle brachial index: 1.93 Non-compressible arteries, TRAE not accurate. Right toe brachial index: 0.60 Non-compressible vessels, results called by PVR tracings. Abnormal toe brachial index at rest is evidence of peripheral artery disease. Right ankle: Moderate disease at rest. LEFT SIDE Resting left ankle brachial index: 1.93 Non-compressible arteries, TRAE not accurate. Left toe brachial index: 0.61 Non-compressible vessels, results called by PVR tracings. Abnormal toe brachial index at rest is evidence of peripheral artery disease. Left ankle: Moderate disease at rest. PVR 12/16/19: IMPRESSION RIGHT SIDE Resting right ankle brachial index: 1.21 Partially non-compressible arteries, TRAE not accurate. Right toe brachial index: 0.43 Non-compressible vessels, results called by PVR tracings. Abnormal toe brachial index at rest is evidence of peripheral artery disease. Right ankle: Moderate disease at rest. Aortic or bilateral iliofemoral disease. LEFT SIDE Resting left ankle brachial index: 2.20 Non-compressible arteries, TRAE not accurate. Left toe brachial index: 0.60 Non-compressible vessels, results called by PVR tracings. Abnormal toe brachial index at rest is evidence of peripheral artery disease. Left ankle: Moderate disease at rest. Aortic or bilateral iliofemoral disease. ECG in the office 10/15/2020: Sinus rhythm with occasional PVCs. Normal axis and intervals. No significant ST or T wave changes IMPRESSION: Mr. Corley is a 81 year old gentleman with known coronary artery disease prior coronary bypass grafting in 1999, COLEMAN-LAD, FRANCIA-RCA, SVG-left circumflex/OM). On cardiac catheterization 2012 at which time he was found to have occlusion of the COLEMAN and FRANCIA grafts. He underwent stenting of the left main coronary artery. Most recent cardiac catheterization 2015 as noted above. He is also treated forhypertension, dyslipidemia, and COPD. He has a history of small cell lung cancer and is status postleft lower lobe wedge resection and radiation therapy. He has a history of peripheral arterial disease and underwent right femoral artery endarterectomy with right iliac stent placement April 2022. He presents the office for routine follow-up. PLAN AND RECOMMENDATIONS: 1. Coronary artery disease involving [place] coronary artery of [place] heart without angina pectoris- ICD9: 414.01, ICD10: I25.10 (primary diagnosis) Patient doing well without symptoms concerning for angina. Continue current medical therapy and risk factor modification - ECG COMPLETE - ATORVASTATIN 40 MG TABLET - COMP METABOLIC PANEL 2. Essential hypertension - ICD9: 401.9, ICD10: I10 Well-controlled on current regimen. - ECG COMPLETE 3. Hyperlipidemia, mixed - ICD9: 272.2, ICD10: E78.2 Patient maintained on Lipitor 20 mg daily. Most recent fasting blood work was reviewed. I have increased his Lipitor to 40 mg daily. Repeat fasting blood work in 3 to 4 months - ECG COMPLETE - ATORVASTATIN 40 MG TABLET - LIPID PANEL BASIC - COMP METABOLIC PANEL 4. Peripheral arterial disease (HCC) - ICD9: 443.9, ICD10: I73.9 Bela Manzano MD documented in this encounterPromedica [facility]07-31-2023 Miscellaneous Notes* Telephone Encounter - Jamshid Brown APRN.CNP - 09/29/2022 9:04 AM EDT Approved. PDMP website checked and validated. All prescriptions have been APPROPRIATELY filled. No suspiciousactivity was identified. 09/29/2022 by Jamshid Brown APRN.CNP The following approved medication requests have been transmitted electronically. Requested Prescriptions Signed Prescriptions Disp Refills LORazepam (ATIVAN) 1 mg tablet 90 tablet 2 Sig: Take 1 tablet by mouth three times daily for 90 days. Authorizing Provider: JAMSHID BROWN APRN.CNP * Telephone Encounter - Yazmin Tatum OCCA - 09/29/2022 9:01 AM EDT Patient has been identified by name and date of : Yes Patient phones for refill(s): Requested Prescriptions Pending Prescriptions Disp Refills LORazepam (ATIVAN) 1 mg tablet 90 tablet 2 Sig: Take 1 tablet by mouth three times daily for 90 days. Date of last office visit in primary care: JOSE M 09/19/22 NOV 12/19/22 Last 2 Encounter Wt Readings: Date: Wt: 09/19/2022 82.2 kg (181 lb 3.2 oz) 06/26/2022 80.2 kg (176 lb 12.8 oz) Please advise. Thank you. SERENA Garcia documented in this encounterPromedica [facility] Hospital07-05-2023 Instructions* Patient Instructions* Juan Carlos Viveros - 09/03/2022 1:45 PM EDT Your ulceration is healed Continue with betadine for another week As the skin toughen's up, can apply moisturizing cream Limit how much moisturizing cream as too much moisture can lead to wounds. Call if any issues arise. documented in this encounterPromedica [facility] Hospital07-05-2023 History of Present illness Narrative* Juan Carlos Viveros - 09/03/2022 1:42 PM EDT FOLLOW UP PODIATRIC OFFICE VISIT Chief Complaint: This 82 year old who presents for follow up:right heel ulceration. Patient presents to clinic for follow-up right heel ulceration. Patient states he is doing very well. PAIN EVALUATION No data found in the last 1 encounters. Hemoglobin A1C Date Value Ref Range Status 06/24/2022 5.0 4.3 - 5.6 % Final Comment: [place] [employer] guidelines indicate that patients with HgbA1c in the range 5.7-6.4% are at increased risk for development of diabetes, and intervention by lifestyle modification may be beneficial. HgbA1c greater or equal to 6.5% is considered diagnostic of diabetes. PCP: Mei Cummins MD PAST MEDICAL HISTORY Diagnosis Date Abdominal aortic aneurysm (AAA) without rupture (HCC) 11/19/2018 Atypical chest pain CAD (coronary artery disease) s/p CABG 1999, PCI w/ stents COPD (chronic obstructive pulmonary disease) (HCC) Diabetic ulcer of right foot (HCC) 04/30/2022 Hyperlipidemia Hyperlipidemia Hypertension Prostate cancer (HCC) Dx Dec 2014, s/p radiation, on hormonal therapy Current Outpatient Medications Medication Sig ADVAIR HFA 230-21 mcg/actuation inhaler Inhale 2 Puffs as instructed twice daily. LORazepam (ATIVAN) 1 mg tablet Take 1 tablet by mouth three times daily for 90 days. clopidogrel (PLAVIX) 75 mg tablet Take 1 tablet by mouth once daily. atorvastatin (LIPITOR) 20 mg tablet Take 1 tablet by mouth once daily. acetaminophen 325 mg cap Take 650 mg by mouth. oxyCODONE IR (ROXICODONE) 5 mg immediate release tablet TAKE 1/2 TABLET BY MOUTH 4 TIMES DAILY NEEDED FOR SHORTNESS OF BREATH budesonide-formoterol (SYMBICORT) 160-4.5 mcg/actuation inhaler Inhale 2 Puffs as instructed twice daily. tamsulosin (FLOMAX) 0.4 mg Take 0.4 mg by mouth once daily. predniSONE (DELTASONE) 10 mg tablet Take 10 mg by mouth once daily. guaiFENesin (MUCINEX) 600 mg 12 hr tablet Take 2 tablets by mouth twice daily. nitroglycerin sublingual (NITROSTAT) 0.4 mg SL tablet Dissolve 1 tablet under the tongue every 5 minutes as needed. DULoxetine (CYMBALTA) 30 mg capsule 1 capsule once daily. ondansetron (ZOFRAN) 4 mg tablet 1 tablet as needed. aspirin, enteric coated (ASPIRIN, ENTERIC COATED) 81 mg EC tablet Take 81 mg by mouth once daily. DULERA 200-5 mcg/actuation inhaler Take 2 Puffs by mouth twice daily. tiotropium (SPIRIVA WITH HANDIHALER) 18 mcg inhalation capsule Inhale 1 capsule as instructed once daily. Use with handihaler. albuterol HFA (PROAIR HFA) 90 mcg/actuation inhaler Inhale 2 Puffs as instructed every 4 hours as needed for Wheezing/Shortness of Breath. No current facility-administered medications for this visit. ALLERGIES Allergen Reactions Imdur [Isosorbide M* Hives Black out and dizziness PAST SURGICAL HISTORY Procedure Laterality Date ANGIOGRAM EXTREMITY LUNG BIOPSY Left needle biopsy LUNG SURGERY HX 02/20/20 lt lung nodule removed PAST SURGICAL HISTORY OF TURP PAST SURGICAL HISTORY OF 03/02/1999 triple bypass Physical Exam: OBJECTIVE: Constitutional: Pt is a well developed 82 year old male who is alert, oriented, cooperative and in no apparent distress. Eyes: Following during examination. No redness or drainage. Respiratory: RR normal and nonlabored. Even breathing. No evidence of distress. Psychology: Patient is engaged during conversation. Normal affect and mood. Does not appear depressed or anxious. NVSI unchanged from previous visit. Dermatological: Right heel ulceration is now healed No signs of infection to right heel Musculoskeletal/Orthopaedic: Patient has no pain to palpation of right heel ASSESSMENT: (L97.412) Skin ulcer of right heel with fat layer 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) (primary encounter diagnosis) (I73.9) Peripheral arterial disease (HCC) PLAN: Ulceration is healed at this time No signs of infection I am going to have him continue with betadine for an additional week just to help the skin continueto mature In one week, can apply small amount of moisturizing lotion. Caution against placing too much cream/lotion Can f/u in 1 month or as needed. Juan Carlos Viveros DPM * Jacy Sunshine LPN - 09/03/2022 1:12 PM EDT AMB ROOMING INTAKE FLOWSHEET DATA Patient presents with: Left Foot - Ulcer, Established Patient, Follow Up 1 week follow up right heel ulcer. Jacy Sunshine LPN documented in this encounterPromedica [facility]06-29-2023 Miscellaneous Notes* Telephone Encounter - Twila Weston APRN.CNP - 08/28/2022 12:34 PM EDT Consult for pulmonology placed. He may schedule any time. Thank you. Twila Weston APRN.CNP * Telephone Encounter - Rosalinda Stapleton - 08/28/2022 11:51 AM EDT Pt wanting referral for pulm here in [place] for his COPD. Please advise documented in this encounterPromedica [facility] Hospital06-27-2023 History of Present illness Narrative* Parish Connolly RT(R) - 08/26/2022 1:50 PM EDT Radiology Service Progress Note PATIENT NAME: Oswaldo Corley DATE OF SERVICE: August 26, 2022 TIME: 1:47 PM PATIENT IDENTITY VERIFICATION COMPLETED USING TWO (2) IDENTIFIERS: Name and Date of confirmedby patient verbally. FALL SCREENING: Has the patient had 2 falls in the last year or 1 fall with injury or currently using an Ambulatory Assistive Device (Walker, Cane, Wheelchair, Crutches, etc.)? Yes, Patient High Riskfor Falls What interventions were put in place to prevent falls during this visit? Increased Observations by Caregivers PATIENT GENDER DATA: Male PATIENT RELEVANT IMPLANT DATA REVIEWED: Not Applicable RADIOLOGY DEPARTMENT: General X-ray: Exam(s) Completed: Lower Extremity X- Ray(s): Foot, Right PERIPHERAL IV DATA: Not applicable SIGNED BY: RT Leonel(R) August 26, 2022 1:47 PM documented in this encounterPromedica [facility] Hospital06-21-2023 Instructions* Patient Instructions* Juan Carlos Viveros - 08/20/2022 1:13 PM EDT At this time, your wound is very tiny. Slight moisture build up. Stop the neosporin and use betadine. If the wound gets severely dry, use a small amount of neosporin Ok to air out at night. Continue with band aide outside Continue with post-op shoe documented in this encounterPromedica Memorial Hospital06-21-2023 History of Present illness Narrative* Juan Carlos Barberfelix - 08/20/2022 1:01 PM EDT FOLLOW UP PODIATRIC OFFICE VISIT Chief Complaint: This 82 year old who presents for follow up:right heel ulceration Patient presents to clinic for follow-up right heel wound He is applying triple antibiotic and band aide He denies any pain He feels the wound continues to heal PAIN EVALUATION No data found in the last 1 encounters. Hemoglobin A1C Date Value Ref Range Status 06/24/2022 5.0 4.3 - 5.6 % Final Comment: [place] [employer] guidelines indicate that patients with HgbA1c in the range 5.7-6.4% are at increased risk for development of diabetes, and intervention by lifestyle modification may be beneficial. HgbA1c greater or equal to 6.5% is considered diagnostic of diabetes. PCP: Mei Cummins MD PAST MEDICAL HISTORY Diagnosis Date Abdominal aortic aneurysm (AAA) without rupture (HCC) 11/19/2018 Atypical chest pain CAD (coronary artery disease) s/p CABG 1999, PCI w/ stents COPD (chronic obstructive pulmonary disease) (HCC) Diabetic ulcer of right foot (HCC) 04/30/2022 Hyperlipidemia Hyperlipidemia Hypertension Prostate cancer (HCC) Dx Dec 2014, s/p radiation, on hormonal therapy Current Outpatient Medications Medication Sig ADVAIR HFA 230-21 mcg/actuation inhaler Inhale 2 Puffs as instructed twice daily. LORazepam (ATIVAN) 1 mg tablet Take 1 tablet by mouth three times daily for 90 days. clopidogrel (PLAVIX) 75 mg tablet Take 1 tablet by mouth once daily. atorvastatin (LIPITOR) 20 mg tablet Take 1 tablet by mouth once daily. acetaminophen 325 mg cap Take 650 mg by mouth. oxyCODONE IR (ROXICODONE) 5 mg immediate release tablet TAKE 1/2 TABLET BY MOUTH 4 TIMES DAILY NEEDED FOR SHORTNESS OF BREATH budesonide-formoterol (SYMBICORT) 160-4.5 mcg/actuation inhaler Inhale 2 Puffs as instructed twice daily. tamsulosin (FLOMAX) 0.4 mg Take 0.4 mg by mouth once daily. predniSONE (DELTASONE) 10 mg tablet Take 10 mg by mouth once daily. guaiFENesin (MUCINEX) 600 mg 12 hr tablet Take 2 tablets by mouth twice daily. nitroglycerin sublingual (NITROSTAT) 0.4 mg SL tablet Dissolve 1 tablet under the tongue every 5 minutes as needed. DULoxetine (CYMBALTA) 30 mg capsule 1 capsule once daily. ondansetron (ZOFRAN) 4 mg tablet 1 tablet as needed. aspirin, enteric coated (ASPIRIN, ENTERIC COATED) 81 mg EC tablet Take 81 mg by mouth once daily. DULERA 200-5 mcg/actuation inhaler Take 2 Puffs by mouth twice daily. tiotropium (SPIRIVA WITH HANDIHALER) 18 mcg inhalation capsule Inhale 1 capsule as instructed once daily. Use with handihaler. albuterol HFA (PROAIR HFA) 90 mcg/actuation inhaler Inhale 2 Puffs as instructed every 4 hours as needed for Wheezing/Shortness of Breath. No current facility-administered medications for this visit. ALLERGIES Allergen Reactions Imdur [Isosorbide M* Hives Black out and dizziness PAST SURGICAL HISTORY Procedure Laterality Date ANGIOGRAM EXTREMITY LUNG BIOPSY Left needle biopsy LUNG SURGERY HX 02/20/20 lt lung nodule removed PAST SURGICAL HISTORY OF TURP PAST SURGICAL HISTORY OF 03/02/1999 triple bypass Physical Exam: OBJECTIVE: Constitutional: Pt is a well developed 82 year old male who is alert, oriented, cooperative and in no apparent distress. Eyes: Following during examination. No redness or drainage. Respiratory: RR normal and nonlabored. Even breathing. No evidence of distress. Psychology: Patient is engaged during conversation. Normal affect and mood. Does not appear depressed or anxious. NVSI unchanged from previous visit. Dermatological: Ulceration #1 Location: right posterior heel Measurement: 1 mm x 1 mm Base: granular with periwound callus No signs of infection. Bell wound of maceration Musculoskeletal/Orthopaedic: Patient has no pain to palpation of right heel ASSESSMENT: (I06.822) Skin ulcer of right heel with fat layer 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) (primary encounter diagnosis) PLAN: Ulceration does appear to be improving The ulceration is 1 mm x 1 mm today. Discussed grafting but the wound is improving. Will hold on graft today I am going to hold on neosporin because of maceration. Will treat with band aide an betadine Follow-up in 1-1.5 weeks Continue with post-op shoe Ulceration was debrided of nonviable tissue with tissue nippers. Total debridement was 1 mm x 1 mm. Juan Carlos Viveros DPM * Selena Merlos RN - 08/20/2022 12:59 PM EDT Patient presents with: Right Heel - Follow Up, Ulcer Applying neosporin and a bandaid. Continues post op shoe. documented in this encounterPromedica [facility]06-06-2023 History of Present illness Narrative* Tyrell Vigil DO - 08/05/2022 11:58 AM EDT This office note has been dictated. Tyrell Vigil DO documented in this encounterPromedica [facility]05-31-2023 History of Present illness Narrative* Jacy Sunshine LPN - 07/30/2022 1:54 PM EDT Apligraft #4 LOT # [id number] EXP 2022-08-08 Unit #[id number] Jacy Sunshine LPN * Juan Carlos Viveros - 07/30/2022 1:32 PM EDT FOLLOW UP PODIATRIC OFFICE VISIT Chief Complaint: This 82 year old who presents for follow up right heel ulceration Patient presents to clinic for follow-up right heel ulceration. Patient is doing very well Denies any issues. PAIN EVALUATION No data found in the last 1 encounters. Hemoglobin A1C Date Value Ref Range Status 06/24/2022 5.0 4.3 - 5.6 % Final Comment: [place] [employer] guidelines indicate that patients with HgbA1c in the range 5.7-6.4% are at increased risk for development of diabetes, and intervention by lifestyle modification may be beneficial. HgbA1c greater or equal to 6.5% is considered diagnostic of diabetes. PCP: Mei Cummins MD PAST MEDICAL HISTORY Diagnosis Date Abdominal aortic aneurysm (AAA) without rupture (HCC) 11/19/2018 Atypical chest pain CAD (coronary artery disease) s/p CABG 1999, PCI w/ stents COPD (chronic obstructive pulmonary disease) (HCC) Diabetic ulcer of right foot (HCC) 04/30/2022 Hyperlipidemia Hyperlipidemia Hypertension Prostate cancer (HCC) Dx Dec 2014, s/p radiation, on hormonal therapy Current Outpatient Medications Medication Sig ADVAIR HFA 230-21 mcg/actuation inhaler Inhale 2 Puffs as instructed twice daily. LORazepam (ATIVAN) 1 mg tablet Take 1 tablet by mouth three times daily for 90 days. clopidogrel (PLAVIX) 75 mg tablet Take 1 tablet by mouth once daily. atorvastatin (LIPITOR) 20 mg tablet Take 1 tablet by mouth once daily. acetaminophen 325 mg cap Take 650 mg by mouth. oxyCODONE IR (ROXICODONE) 5 mg immediate release tablet TAKE 1/2 TABLET BY MOUTH 4 TIMES DAILY NEEDED FOR SHORTNESS OF BREATH budesonide-formoterol (SYMBICORT) 160-4.5 mcg/actuation inhaler Inhale 2 Puffs as instructed twice daily. tamsulosin (FLOMAX) 0.4 mg Take 0.4 mg by mouth once daily. predniSONE (DELTASONE) 10 mg tablet Take 10 mg by mouth once daily. guaiFENesin (MUCINEX) 600 mg 12 hr tablet Take 2 tablets by mouth twice daily. nitroglycerin sublingual (NITROSTAT) 0.4 mg SL tablet Dissolve 1 tablet under the tongue every 5 minutes as needed. DULoxetine (CYMBALTA) 30 mg capsule 1 capsule once daily. ondansetron (ZOFRAN) 4 mg tablet 1 tablet as needed. aspirin, enteric coated (ASPIRIN, ENTERIC COATED) 81 mg EC tablet Take 81 mg by mouth once daily. DULERA 200-5 mcg/actuation inhaler Take 2 Puffs by mouth twice daily. tiotropium (SPIRIVA WITH HANDIHALER) 18 mcg inhalation capsule Inhale 1 capsule as instructed once daily. Use with handihaler. albuterol HFA (PROAIR HFA) 90 mcg/actuation inhaler Inhale 2 Puffs as instructed every 4 hours as needed for Wheezing/Shortness of Breath. No current facility-administered medications for this visit. ALLERGIES Allergen Reactions Imdur [Isosorbide M* Hives Black out and dizziness PAST SURGICAL HISTORY Procedure Laterality Date ANGIOGRAM EXTREMITY LUNG BIOPSY Left needle biopsy LUNG SURGERY HX 02/20/20 lt lung nodule removed PAST SURGICAL HISTORY OF TURP PAST SURGICAL HISTORY OF 03/02/1999 triple bypass Physical Exam: OBJECTIVE: Constitutional: Pt is a well developed 82 year old male who is alert, oriented, cooperative and in no apparent distress. Eyes: Following during examination. No redness or drainage. Respiratory: RR normal and nonlabored. Even breathing. No evidence of distress. Psychology: Patient is engaged during conversation. Normal affect and mood. Does not appear depressed or anxious. NVSI unchanged from previous visit. Dermatological: Location: left medial heel Measurement: 0.3 cm x 0.\5 cm x 1mm Base: 100% granular No drainage, no exposed bone tendon. No signs of infecti ASSESSMENT: (L97.412) Skin ulcer of right heel with fat layer 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) (primary encounter diagnosis) (I73.9) Peripheral arterial disease (HCC) PLAN: Patient ulceration appears to be improving with most recent graft application Wound was debrided today thru subcutaneous tissue with tissue nippers. Total debridement was 3 mm x5 mm x 1 mm. Will apply subsequent graft today Application of Apligraf #4, measuring a total of 44 square centimeters to right heel today. Application per protocol with application of wound veil and steri- strips, as well as bolster dressing, payton, and kerlix. Notable 95 % of graft was wasted today and disposed of due to not needed for size of wound. Patient should keep dressing dry, clean and intact for 72 hours. May remove dressing in 3 days downto pink bolster dressing. RTC 1 week. I am out of the office next week. I will ask that Dr. Yuliet Vigil evaluate patient and she is free to remove the wound veil and evaluate the wound. I expect the wound to be even smaller. Next week, in my absence, Dr. Vigil can evaluate the wound and patient can likely start implementing topical antibiotic cream and nonadherent bandage F/u in 2 weeks with ok Juan Carlos Viveros DPM * Jacy Sunshine LPN - 07/30/2022 1:18 PM EDT AMB ROOMING INTAKE FLOWSHEET DATA Patient presents with: Right Foot - Established Patient, Follow Up, Ulcer Patient present to office for apligraft application. Jacy Sunshine LPN documented in this encounterPromedica [facility]05-30-2023 History of Present illness Narrative* Tyrell Vigil DO - 07/29/2022 11:47 AM EDT This office note has been dictated. Tyrell Vigil DO documented in this encounterPromedica [facility]05-09-2023 History of Present illness Narrative* Jacy Sunshine LPN - 07/08/2022 2:05 PM EDT LOT # [id number] EXP 2022-07-15 24:05.01 Jacy Sunshine LPN * Juan Carlos Viveros - 07/08/2022 1:10 PM EDT FOLLOW UP PODIATRIC OFFICE VISIT Chief Complaint: This 81 year old who presents for follow up:ulceration of right heel. Patient presents to clinic for follow-up right heel ulceration He had puraply applied last week. Here for possible apligraf application. PAIN EVALUATION No data found in the last 1 encounters. Hemoglobin A1C Date Value Ref Range Status 06/24/2022 5.0 4.3 - 5.6 % Final Comment: [place] [employer] guidelines indicate that patients with HgbA1c in the range 5.7-6.4% are at increased risk for development of diabetes, and intervention by lifestyle modification may be beneficial. HgbA1c greater or equal to 6.5% is considered diagnostic of diabetes. PCP: Mei Cummins MD PAST MEDICAL HISTORY Diagnosis Date Abdominal aortic aneurysm (AAA) without rupture (HCC) 11/19/2018 Atypical chest pain CAD (coronary artery disease) s/p CABG 1999, PCI w/ stents COPD (chronic obstructive pulmonary disease) (HCC) Diabetic ulcer of right foot (HCC) 04/30/2022 Hyperlipidemia Hyperlipidemia Hypertension Prostate cancer (HCC) Dx Dec 2014, s/p radiation, on hormonal therapy Current Outpatient Medications Medication Sig LORazepam (ATIVAN) 1 mg tablet Take 1 tablet by mouth three times daily for 90 days. clopidogrel (PLAVIX) 75 mg tablet Take 1 tablet by mouth once daily. atorvastatin (LIPITOR) 20 mg tablet Take 1 tablet by mouth once daily. acetaminophen 325 mg cap Take 650 mg by mouth. oxyCODONE IR (ROXICODONE) 5 mg immediate release tablet TAKE 1/2 TABLET BY MOUTH 4 TIMES DAILY NEEDED FOR SHORTNESS OF BREATH budesonide-formoterol (SYMBICORT) 160-4.5 mcg/actuation inhaler Inhale 2 Puffs as instructed twice daily. tamsulosin (FLOMAX) 0.4 mg Take 0.4 mg by mouth once daily. predniSONE (DELTASONE) 10 mg tablet Take 10 mg by mouth once daily. guaiFENesin (MUCINEX) 600 mg 12 hr tablet Take 2 tablets by mouth twice daily. nitroglycerin sublingual (NITROSTAT) 0.4 mg SL tablet Dissolve 1 tablet under the tongue every 5 minutes as needed. DULoxetine (CYMBALTA) 30 mg capsule 1 capsule once daily. ondansetron (ZOFRAN) 4 mg tablet 1 tablet as needed. aspirin, enteric coated (ASPIRIN, ENTERIC COATED) 81 mg EC tablet Take 81 mg by mouth once daily. DULERA 200-5 mcg/actuation inhaler Take 2 Puffs by mouth twice daily. tiotropium (SPIRIVA WITH HANDIHALER) 18 mcg inhalation capsule Inhale 1 capsule as instructed once daily. Use with handihaler. albuterol HFA (PROAIR HFA) 90 mcg/actuation inhaler Inhale 2 Puffs as instructed every 4 hours as needed for Wheezing/Shortness of Breath. No current facility-administered medications for this visit. ALLERGIES Allergen Reactions Imdur [Isosorbide M* Hives Black out and dizziness PAST SURGICAL HISTORY Procedure Laterality Date ANGIOGRAM EXTREMITY LUNG BIOPSY Left needle biopsy LUNG SURGERY HX 02/20/20 lt lung nodule removed PAST SURGICAL HISTORY OF TURP PAST SURGICAL HISTORY OF 03/02/1999 triple bypass Physical Exam: OBJECTIVE: Constitutional: Pt is a well developed 81 year old male who is alert, oriented, cooperative and in no apparent distress. Eyes: Following during examination. No redness or drainage. Respiratory: RR normal and nonlabored. Even breathing. No evidence of distress. Psychology: Patient is engaged during conversation. Normal affect and mood. Does not appear depressed or anxious. NVSI unchanged from previous visit. Dermatological: Location: left medial heel Measurement: 0.5 cm x 1.3 cm x 1mm Base: 100% granular No drainage, no exposed bone tendon. No signs of infection Musculoskeletal/Orthopaedic: Patient has minimal pain to palpation of right heel ASSESSMENT: (L97.412) Skin ulcer of right heel with fat layer 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) (primary encounter diagnosis) (I73.9) Peripheral arterial disease (HCC) PLAN: Discussed ulceration of right heel. The ulceration appears slightly smaller and remains healthy Small amount of slough was debrided today with tissue nippers. Debridement was performed thru subcutaneous tissue with tissue nippers. Total debridement was 5 mm x 1.3 cm. Will treat with apligraf Application of Apligraf #1, measuring a total of 44 square centimeters to left heel today. Application per protocol with application of wound veil and steri- strips, as well as bolster dressing, payton, and kerlix. Notable 85 % of graft was wasted today and disposed of due to not needed for size of wound. Patient should keep dressing dry, clean and intact for 72 hours. May remove dressing in 3 days downto pink bolster dressing. RTC 1 week for possible re-applicaiton Juan Carlos Viveros DPM * aJcy Sunshine LPN - 07/08/2022 1:05 PM EDT AMB ROOMING INTAKE FLOWSHEET DATA Patient presents with: Right Foot - Established Patient, Follow Up, Ulcer Patient present to office 1 week following puraply application to right heel ulcer. Jacy Sunshine LPN documented in this encounterPromedica [facility] Hospital05-09-2023 Instructions* Patient Instructions* Jacy Sunshine LPN - 07/08/2022 1:26 PM EDT You had apligraf applied today. Please leave dressing intact on inner layer. Can remove outer layerto level of nonadherent Keep clean and dry Continue with surgical shoe Follow-up in 1 week documented in this encounterPromedica [facility] Hospital05-02-2023 History of Present illness Narrative* Yina Stringer RN - 07/01/2022 2:21 PM EDT Dressing applied to Puraply, gauze and gauze wrap. LOT # [id number] EXP 07/04/2024 Yina Stringer RN * Juan Carlos Viveros - 07/01/2022 1:54 PM EDT FOLLOW UP PODIATRIC OFFICE VISIT Chief Complaint: This 81 year old who presents for follow up:right heel ulceration Patient presents to clinic for follow-up right heel ulceration Patient is currently using tray to the right heel and surgical shoe He denies any drainage to his right foot He does report some discomfort. Overall, he feels well. PAIN EVALUATION 07/01/2022 1326 Pain Level: 1 Pain Location: Heel-Right Description: Sore Duration Amount of Time: 1 Duration Units: Months Frequency: Intermittent Intervention/Comfort measure: Reposition;Relaxation Hemoglobin A1C Date Value Ref Range Status 06/24/2022 5.0 4.3 - 5.6 % Final Comment: [place] [employer] guidelines indicate that patients with HgbA1c in the range 5.7-6.4% are at increased risk for development of diabetes, and intervention by lifestyle modification may be beneficial. HgbA1c greater or equal to 6.5% is considered diagnostic of diabetes. PCP: Mei Cummins MD PAST MEDICAL HISTORY Diagnosis Date Abdominal aortic aneurysm (AAA) without rupture (HCC) 11/19/2018 Atypical chest pain CAD (coronary artery disease) s/p CABG 1999, PCI w/ stents COPD (chronic obstructive pulmonary disease) [facility]) Diabetic ulcer of right foot ([facility]) 04/30/2022 Hyperlipidemia Hyperlipidemia Hypertension Prostate cancer (HCC) Dx Dec 2014, s/p radiation, on hormonal therapy Current Outpatient Medications Medication Sig LORazepam (ATIVAN) 1 mg tablet Take 1 tablet by mouth three times daily for 90 days. clopidogrel (PLAVIX) 75 mg tablet Take 1 tablet by mouth once daily. atorvastatin (LIPITOR) 20 mg tablet Take 1 tablet by mouth once daily. acetaminophen 325 mg cap Take 650 mg by mouth. oxyCODONE IR (ROXICODONE) 5 mg immediate release tablet TAKE 1/2 TABLET BY MOUTH 4 TIMES DAILY NEEDED FOR SHORTNESS OF BREATH budesonide-formoterol (SYMBICORT) 160-4.5 mcg/actuation inhaler Inhale 2 Puffs as instructed twice daily. tamsulosin (FLOMAX) 0.4 mg Take 0.4 mg by mouth once daily. predniSONE (DELTASONE) 10 mg tablet Take 10 mg by mouth once daily. guaiFENesin (MUCINEX) 600 mg 12 hr tablet Take 2 tablets by mouth twice daily. nitroglycerin sublingual (NITROSTAT) 0.4 mg SL tablet Dissolve 1 tablet under the tongue every 5 minutes as needed. DULoxetine (CYMBALTA) 30 mg capsule 1 capsule once daily. ondansetron (ZOFRAN) 4 mg tablet 1 tablet as needed. aspirin, enteric coated (ASPIRIN, ENTERIC COATED) 81 mg EC tablet Take 81 mg by mouth once daily. DULERA 200-5 mcg/actuation inhaler Take 2 Puffs by mouth twice daily. tiotropium (SPIRIVA WITH HANDIHALER) 18 mcg inhalation capsule Inhale 1 capsule as instructed once daily. Use with handihaler. albuterol HFA (PROAIR HFA) 90 mcg/actuation inhaler Inhale 2 Puffs as instructed every 4 hours as needed for Wheezing/Shortness of Breath. No current facility-administered medications for this visit. ALLERGIES Allergen Reactions Imdur [Isosorbide M* Hives Black out and dizziness PAST SURGICAL HISTORY Procedure Laterality Date ANGIOGRAM EXTREMITY LUNG BIOPSY Left needle biopsy LUNG SURGERY HX 02/20/20 lt lung nodule removed PAST SURGICAL HISTORY OF TURP PAST SURGICAL HISTORY OF 03/02/1999 triple bypass Physical Exam: OBJECTIVE: Constitutional: Pt is a well developed 81 year old male who is alert, oriented, cooperative and in no apparent distress. Eyes: Following during examination. No redness or drainage. Respiratory: RR normal and nonlabored. Even breathing. No evidence of distress. Psychology: Patient is engaged during conversation. Normal affect and mood. Does not appear depressed or anxious. NVSI unchanged from previous visit. Dermatological: Location: left medial heel Measurement: 0.9 cm x 1.4 cm x 1mm Base: 95% granular; 5% fibrotic. No drainage, no exposed bone tendon. No signs of infection Musculoskeletal/Orthopaedic: Patient has minimal pain to palpation of right foot ASSESSMENT: (L97.412) Skin ulcer of right heel with fat layer 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) (primary encounter diagnosis) (I73.9) Peripheral arterial disease (HCC) PLAN: Discussed ulceration of right heel. The ulceration is slightly smaller compared to past visits. The wound was debrided today thru subcutaneous tissue with tissue nippers. Bleeding was present andcontrolled with pressure. Today, a puraply was applied to the right heel and secured with steres. Will have patient leave this intact. Will plan for apligraf application next week Continue with offloading of right heel * Jacy Sunshine LPN - 07/01/2022 1:23 PM EDT AMB ROOMING INTAKE FLOWSHEET DATA Pain Pain Level: 1 Pain Location: Heel-Right Description: Sore Duration Amount of Time: 1 Duration Units: Months Frequency: Intermittent Intervention/Comfort measure: Reposition, Relaxation Patient presents with: Right Foot - Established Patient, Pain, Ulcer Application of purply. Jacy Sunshine LPN documented in this encounterPromedica [facility]04-27-2023 History of Present illness Narrative* Mei Cummins MD - 06/26/2022 11:00 AM EDT Chief Complaint Patient presents with: F/U 3 Month HPI Owsaldo Corley is a 81 year old male who presents here today for a 3 month follow up. Pt here today for a 3 month medication follow up. Here today with his . 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 Pt is constantly worrying about his health. Follows with Palliative Care, Karla every 2-3 months. HTN - Controlled without of use medication. Will check his BP on occasion, overall stable. Pt has chronic intermittent chest pain and dizziness. Chronic sob due to COPD. Follows with Dr. Manzano in Cardiology. On current regimen of Plavix 75 mg once daily and Aspirin 81 mg daily Vascular/Ulcer - Follows with Dr. Rivas, had angiogram due to PAD. Was being seen for an ulcer by Dr. Vigil and Dr. Viveros but was then referred to Vascular Surgeon. Overall feels this is doing better. Feels he's able walk better. Has f/u and will need skin graft done. COPD - Follows with Pulmonary and Palliative Medicine. Pt is currently being prescribed Oxycodone to help with his breathing. Wears oxygen 3-4 L. Pt has hx of lung cancer. Wears a vest that shakes. Takes inhalers daily. Checks pulse ox at home, has been in the 90's. Pain - Chronic pain that pt is currently being treated with Oxycodone from Palliative Medicine. Still has pain and notes that when he first takes pain medication it makes his breathing a little heavier and will then take effect. Takes 0.5 every 4-6 hours. Denies any issues with medication. Lipids - Tries to watch diet by counting calories. Not able to exercise due to his COPD. On currentregimen of Lipitor 20 mg once daily. HM - Has Adv Dir/living Will. Shingles through Pharmacy due to having Medicare. Pt is not Diabetic.Depression - pt has anxiety but declines depression symptoms. Past medical history, appointments, medications, allergies reviewed. Previous Medical History PAST MEDICAL HISTORY Diagnosis Date Abdominal aortic aneurysm (AAA) without rupture (HCC) 11/19/2018 Atypical chest pain CAD (coronary artery disease) s/p CABG 1999, PCI w/ stents COPD (chronic obstructive pulmonary disease) (HCC) Diabetic ulcer of right foot (HCC) 04/30/2022 Hyperlipidemia Hyperlipidemia Hypertension Prostate cancer (HCC) Dx Dec 2014, s/p radiation, on hormonal therapy Previous Surgical History PAST SURGICAL HISTORY Procedure Laterality Date ANGIOGRAM EXTREMITY LUNG BIOPSY Left needle biopsy LUNG SURGERY HX 02/20/20 lt lung nodule removed PAST SURGICAL HISTORY OF TURP PAST SURGICAL HISTORY OF 03/02/1999 triple bypass Family History FAMILY HISTORY Problem Relation Age of Onset Cancer Mother breast, bone Cancer Sister breast Emphysema Sister Smoker Diabetes Father Heart Father Diabetes Brother Heart Brother other (Other) Brother Parkinsons Diabetes Paternal Grandmother Heart Paternal Grandmother Patient Allergies ALLERGIES Allergen Reactions Imdur [Isosorbide M* Hives Black out and dizziness Current Medications Current Outpatient Medications on File Prior to Visit Medication Sig clopidogrel (PLAVIX) 75 mg tablet Take 1 tablet by mouth once daily. atorvastatin (LIPITOR) 20 mg tablet Take 1 tablet by mouth once daily. acetaminophen 325 mg cap Take 650 mg by mouth. LORazepam (ATIVAN) 1 mg tablet Take 1 tablet by mouth three times daily for 90 days. oxyCODONE IR (ROXICODONE) 5 mg immediate release tablet TAKE 1/2 TABLET BY MOUTH 4 TIMES DAILY NEEDED FOR SHORTNESS OF BREATH budesonide-formoterol (SYMBICORT) 160-4.5 mcg/actuation inhaler Inhale 2 Puffs as instructed twice daily. tamsulosin (FLOMAX) 0.4 mg Take 0.4 mg by mouth once daily. predniSONE (DELTASONE) 10 mg tablet Take 10 mg by mouth once daily. guaiFENesin (MUCINEX) 600 mg 12 hr tablet Take 2 tablets by mouth twice daily. nitroglycerin sublingual (NITROSTAT) 0.4 mg SL tablet Dissolve 1 tablet under the tongue every 5 minutes as needed. DULoxetine (CYMBALTA) 30 mg capsule 1 capsule once daily. ondansetron (ZOFRAN) 4 mg tablet 1 tablet as needed. aspirin, enteric coated (ASPIRIN, ENTERIC COATED) 81 mg EC tablet Take 81 mg by mouth once daily. DULERA 200-5 mcg/actuation inhaler Take 2 Puffs by mouth twice daily. tiotropium (SPIRIVA WITH HANDIHALER) 18 mcg inhalation capsule Inhale 1 capsule as instructed once daily. Use with handihaler. albuterol HFA (PROAIR HFA) 90 mcg/actuation inhaler Inhale 2 Puffs as instructed every 4 hours as needed for Wheezing/Shortness of Breath. No current facility-administered medications on file prior to visit. Social History Social History Tobacco Use Smoking status: Former Packs/day: 2.00 Years: 40.00 Pack years: 80.00 Types: Cigarettes Start date: 11/08/1962 Quit date: 05/13/2002 Years since quittin.1 Smokeless tobacco: Never Vaping Use Vaping Use: Never used Substance Use Topics Alcohol use: Not Currently Alcohol/week: 3.0 standard drinks Types: 3 Cans of beer per week Comment: light beer Drug use: No EXAM: BP 134/82 (BP Site: Left Arm, BP Position: Sitting, BP Cuff Size: Regular Adult) Pulse 80 Resp 24 Wt 80.2 kg (176 lb 12.8 oz) BMI 24.67 kg/m General Appearance: Well appearing, alert, in no acute distress, well-hydrated, well nourished.. Lungs: Lungs clear to auscultation. No wheezing, rhonchi, rales.. Heart: RRR without murmur, gallop, or rubs. No ectopy. Extremities: B/L lower legs stable, no edema noted. Health Maintenance List URINE ALBUMIN:CREATININE RATIO Never done DILATED RETINAL EXAM Never done DIABETIC FOOT EXAM Never done BP CONTROLLED (<130/80) Never done DTAP,TDAP,TD(1 - Tdap) Never done SHINGRIX VACCINE(1 of 2) Never done ADVANCE DIRECTIVE DISCUSSION Never done DEPRESSION ASSESSMENT Never done HBA1C due on 10/31/2022 LDL CHOLESTEROL due on 11/26/2022 ANNUAL PCP TEAM CHRONIC DISEASE VISIT due on 03/18/2023 SPIROMETRY Completed INFLUENZA Completed COVID-19 VACCINE Completed PNEUMOCOCCAL: 65+ Completed Data reviewed None ASSESSMENT/PLAN: 1. Anxiety - ICD9: 300.00, ICD10: F41.9 (primary diagnosis) - Refill given - Continue current medication regimen. - LORAZEPAM 1 MG TABLET 2. Depression, unspecified depression type - ICD9: 311, ICD10: F32.A - Stable - Continue current medication regimen. 3. Hyperlipidemia, mixed - ICD9: 272.2, ICD10: E78.2 - good control - Continue current medication. 4. Essential hypertension - ICD9: 401.9, ICD10: I10 - good control - Continue current medication(s) - Recommend home blood pressure monitoring, to bring results in on next visit - Goal of BP <140/90 5. Chronic obstructive pulmonary disease with acute exacerbation (HCC) - ICD9: 491.21, ICD10: J44.1 Continue current medications. Follow with Pulm 6. Coronary artery disease involving [place] coronary artery of [place] heart without angina pectoris- ICD9: 414.01, ICD10: I25.10 Stable 7. PAD (peripheral artery disease) (HCC) - ICD9: 443.9, ICD10: I73.9 Follow with Vascular 8. Squamous carcinoma of lung, left (HCC) - ICD9: 162.9, ICD10: C34.92 - Cont f/u with Pulm - Continue current medication regimen. 9. Status post removal of lung - ICD9: V45.76, ICD10: Z90.2 - Continue current medication regimen. 3 mo f/u, no labs needed I agree with the Chief Complaint, ROS, and Past Histories independently gathered by the clinical product support technician and the remaining scribed note accurately describes my personal service to the patient. Medical Decision Making: Problems: Moderate: 2+ stable chronic illnesses Data: Unique test result(s) reviewed: 3+ Risk: Moderate: Drug management Medical Decision Making Level: 4 - Moderate Mei Cummins MD The documentation for this note was completed by Vickie Crarillo Ma acting as scribe for Mei Cummins MD. June 26, 2022 11:28 AM. Vickie Carrillo Ma documented in this encounterPromedica [facility]04-25-2023 Instructions* Patient Instructions* Juan Carlos Viveros - 06/24/2022 1:34 PM EDT Continue with tray and surgical shoe Will plan for graft application next week documented in this encounterPromedica [facility] Hospital04-25-2023 History of Present illness Narrative* Juan Carlos Viveros - 06/24/2022 1:24 PM EDT FOLLOW UP PODIATRIC OFFICE VISIT Chief Complaint: This 81 year old who presents for follow up:right heel ulceration Patient has been applying tray to right heel. Patient does feel the ulceration is improving PAIN EVALUATION 06/24/2022 1317 Pain Level: 2 Pain Location: Heel-Right Description: Burning Duration Amount of Time: 2 Duration Units: Days Frequency: Intermittent Intervention/Comfort measure: Reposition;Relaxation;Medication Hemoglobin A1C Date Value Ref Range Status 04/30/2022 5.4 4.3 - 5.6 % Final Comment: [place] [employer] guidelines indicate that patients with HgbA1c in the range 5.7-6.4% are at increased risk for development of diabetes, and intervention by lifestyle modification may be beneficial. HgbA1c greater or equal to 6.5% is considered diagnostic of diabetes. PCP: Mei Cummins MD PAST MEDICAL HISTORY Diagnosis Date Abdominal aortic aneurysm (AAA) without rupture ([facility]) 11/19/2018 Atypical chest pain CAD (coronary artery disease) s/p CABG 1999, PCI w/ stents COPD (chronic obstructive pulmonary disease) ([facility]) Diabetic ulcer of right foot ([facility]) 04/30/2022 Hyperlipidemia Hyperlipidemia Hypertension Prostate cancer (HCC) Dx Dec 2014, s/p radiation, on hormonal therapy Current Outpatient Medications Medication Sig clopidogrel (PLAVIX) 75 mg tablet Take 1 tablet by mouth once daily. atorvastatin (LIPITOR) 20 mg tablet Take 1 tablet by mouth once daily. acetaminophen 325 mg cap Take 650 mg by mouth. LORazepam (ATIVAN) 1 mg tablet Take 1 tablet by mouth three times daily for 90 days. oxyCODONE IR (ROXICODONE) 5 mg immediate release tablet TAKE 1/2 TABLET BY MOUTH 4 TIMES DAILY NEEDED FOR SHORTNESS OF BREATH budesonide-formoterol (SYMBICORT) 160-4.5 mcg/actuation inhaler Inhale 2 Puffs as instructed twice daily. tamsulosin (FLOMAX) 0.4 mg Take 0.4 mg by mouth once daily. predniSONE (DELTASONE) 10 mg tablet Take 10 mg by mouth once daily. guaiFENesin (MUCINEX) 600 mg 12 hr tablet Take 2 tablets by mouth twice daily. nitroglycerin sublingual (NITROSTAT) 0.4 mg SL tablet Dissolve 1 tablet under the tongue every 5 minutes as needed. DULoxetine (CYMBALTA) 30 mg capsule 1 capsule once daily. ondansetron (ZOFRAN) 4 mg tablet 1 tablet as needed. aspirin, enteric coated (ASPIRIN, ENTERIC COATED) 81 mg EC tablet Take 81 mg by mouth once daily. DULERA 200-5 mcg/actuation inhaler Take 2 Puffs by mouth twice daily. tiotropium (SPIRIVA WITH HANDIHALER) 18 mcg inhalation capsule Inhale 1 capsule as instructed once daily. Use with handihaler. albuterol HFA (PROAIR HFA) 90 mcg/actuation inhaler Inhale 2 Puffs as instructed every 4 hours as needed for Wheezing/Shortness of Breath. No current facility-administered medications for this visit. ALLERGIES Allergen Reactions Imdur [Isosorbide M* Hives Black out and dizziness PAST SURGICAL HISTORY Procedure Laterality Date ANGIOGRAM EXTREMITY LUNG BIOPSY Left needle biopsy LUNG SURGERY HX 02/20/20 lt lung nodule removed PAST SURGICAL HISTORY OF TURP PAST SURGICAL HISTORY OF 03/02/1999 triple bypass Physical Exam: OBJECTIVE: Constitutional: Pt is a well developed 81 year old male who is alert, oriented, cooperative and in no apparent distress. Eyes: Following during examination. No redness or drainage. Respiratory: RR normal and nonlabored. Even breathing. No evidence of distress. Psychology: Patient is engaged during conversation. Normal affect and mood. Does not appear depressed or anxious. NVSI unchanged from previous visit. Dermatological: Ulceration #1 Location: left medial heel Measurement: 0.9 cm x 1.4 cm x 1mm Base: 95% granular; 5% fibrotic. No drainage, no exposed bone tendon. No signs of infection Musculoskeletal/Orthopaedic: Patient has no pain to palpation of right heel ASSESSMENT: (L97.412) Skin ulcer of right heel with fat layer 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) (primary encounter diagnosis) PLAN: Ulceration is slightly smaller today compared to last visit Today, the ulceration was debrided thru subcutaneous tissue with tissue nippers. Bleeding was present and controlled with pressure. Total debridement was 1.4 cm x 0.9 cm. Continue with tray Continue offloading of heel while in bed Will plan for either apligraf vs puraply application next week Juan Carlos Viveros DPM * Jacy Sunshine LPN - 06/24/2022 1:16 PM EDT AMB ROOMING INTAKE FLOWSHEET DATA Pain Pain Level: 2 Pain Location: Heel-Right Description: Burning Duration Amount of Time: 2 Duration Units: Days Frequency: Intermittent Intervention/Comfort measure: Reposition, Relaxation, Medication Patient presents with: Right Foot - Established Patient, Ulcer, Pain Jacy Sunshine LPN documented in this encounterPromedica [facility] Hospital04-20-2023 Miscellaneous Notes* Telephone Encounter - Jacy Sunshine LPN - 06/19/2022 11:14 AM EDT Apligraf [facility] along with insurance cards, patient face sheet and office visit notes. This was sent on 06/18/2022. Approval for all products were received on 06/19/2022 and patient was notified. Patient would like to proceed with graft. All questions were answered and patient verbalized understanding. Graft Application, supporting documents, benefit outcome summary were placed in graft approval or denial folder. Jacy Sunshine LPN documented in this encounterPromedica Memorial Hospital04-19-2023 Instructions* Patient Instructions* Juan Carlos Viveros - 06/18/2022 1:21 PM EDT Continue with tray and surgical shoe Will have insurance ran for graft Follow-up in 1 weeks documented in this [facility]04-19-2023 History of Present illness Narrative* Juan Carlos Viveros - 06/18/2022 1:08 PM EDT FOLLOW UP PODIATRIC OFFICE VISIT Chief Complaint: This 81 year old who presents for follow up:right heel ulceration Patient presents to clinic for follow-up right heel ulceration He is using surgical shoe and applying tray to the right heel ulceration daily Reports some pain but is tolerable Had pvr done today. PAIN EVALUATION 06/18/2022 1301 Pain Level: 2 Pain Location: Foot-Right Description: Sore Duration Amount of Time: 2 Duration Units: Months Intervention/Comfort measure: Reposition;Relaxation;Medication Hemoglobin A1C Date Value Ref Range Status 04/30/2022 5.4 4.3 - 5.6 % Final Comment: [place] [employer] guidelines indicate that patients with HgbA1c in the range 5.7-6.4% are at increased risk for development of diabetes, and intervention by lifestyle modification may be beneficial. HgbA1c greater or equal to 6.5% is considered diagnostic of diabetes. PCP: Mei Cummins MD PAST MEDICAL HISTORY Diagnosis Date Abdominal aortic aneurysm (AAA) without rupture (HCC) 11/19/2018 Atypical chest pain CAD (coronary artery disease) s/p CABG 1999, PCI w/ stents COPD (chronic obstructive pulmonary disease) (HCC) Diabetic ulcer of right foot (HCC) 04/30/2022 Hyperlipidemia Hyperlipidemia Hypertension Prostate cancer (HCC) Dx Dec 2014, s/p radiation, on hormonal therapy Current Outpatient Medications Medication Sig clopidogrel (PLAVIX) 75 mg tablet Take 1 tablet by mouth once daily. atorvastatin (LIPITOR) 20 mg tablet Take 1 tablet by mouth once daily. acetaminophen 325 mg cap Take 650 mg by mouth. oxyCODONE IR (ROXICODONE) 5 mg immediate release tablet TAKE 1/2 TABLET BY MOUTH 4 TIMES DAILY NEEDED FOR SHORTNESS OF BREATH budesonide-formoterol (SYMBICORT) 160-4.5 mcg/actuation inhaler Inhale 2 Puffs as instructed twice daily. tamsulosin (FLOMAX) 0.4 mg Take 0.4 mg by mouth once daily. predniSONE (DELTASONE) 10 mg tablet Take 10 mg by mouth once daily. guaiFENesin (MUCINEX) 600 mg 12 hr tablet Take 2 tablets by mouth twice daily. nitroglycerin sublingual (NITROSTAT) 0.4 mg SL tablet Dissolve 1 tablet under the tongue every 5 minutes as needed. DULoxetine (CYMBALTA) 30 mg capsule 1 capsule once daily. ondansetron (ZOFRAN) 4 mg tablet 1 tablet as needed. aspirin, enteric coated (ASPIRIN, ENTERIC COATED) 81 mg EC tablet Take 81 mg by mouth once daily. DULERA 200-5 mcg/actuation inhaler Take 2 Puffs by mouth twice daily. tiotropium (SPIRIVA WITH HANDIHALER) 18 mcg inhalation capsule Inhale 1 capsule as instructed once daily. Use with handihaler. albuterol HFA (PROAIR HFA) 90 mcg/actuation inhaler Inhale 2 Puffs as instructed every 4 hours as needed for Wheezing/Shortness of Breath. LORazepam (ATIVAN) 1 mg tablet Take 1 tablet by mouth three times daily for 90 days. No current facility-administered medications for this visit. ALLERGIES Allergen Reactions Imdur [Isosorbide M* Hives Black out and dizziness PAST SURGICAL HISTORY Procedure Laterality Date ANGIOGRAM EXTREMITY LUNG BIOPSY Left needle biopsy LUNG SURGERY HX 02/20/20 lt lung nodule removed PAST SURGICAL HISTORY OF TURP PAST SURGICAL HISTORY OF 03/02/1999 triple bypass Physical Exam: OBJECTIVE: Constitutional: Pt is a well developed 81 year old male who is alert, oriented, cooperative and in no apparent distress. Eyes: Following during examination. No redness or drainage. Respiratory: RR normal and nonlabored. Even breathing. No evidence of distress. Psychology: Patient is engaged during conversation. Normal affect and mood. Does not appear depressed or anxious. NVSI unchanged from previous visit. Dermatological: Ulceration #1 Location: left medial heel Measurement: 1.1 cm x 1.7 cm x 1mm Base: 95% granular; 5% fibrotic. No drainage, no exposed bone tendon. No signs of infection Callus to right hallux. No ulcer Musculoskeletal/Orthopaedic: Patient has no pain to palpation of right foot ASSESSMENT: (L97.412) Skin ulcer of right heel with fat layer 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) (primary encounter diagnosis) (I73.9) Peripheral arterial disease (HCC) callus PLAN: Ulceratoin is slightly smaller compared to last office visit. Healthy ulceration noted without signs of infection Ulceration was debrided with dermal curette thru subcutaneous tissue. Bleeding was present and controlled with pressure. Will continue with tray. I do feel patinet would benefit from advanced would biologic such as apligraf. The longer this wound remains open, the greater the risk of infection. Apligraf has been shown to help expedite wound healing and for this patient, I feel it will be of benefit. Callus reduced to right hallux with dremmel. Offered referral to wound center but he elected to remain in this office Juan Carlos Viveros DPM * Jacy Sunshine LPN - 06/18/2022 1:01 PM EDT AMB ROOMING INTAKE FLOWSHEET DATA Pain Pain Level: 2 Pain Location: Foot-Right Description: Sore Duration Amount of Time: 2 Duration Units: Months Intervention/Comfort measure: Reposition, Relaxation, Medication Patient presents with: Right Foot - Established Patient, Follow Up, Ulcer, Pain Patient has procedure to help restore circulation 5 weeks ago. PVR completed today. Jacy Sunshine LPN documented in this encounterPromedica [facility] Hospital04-11-2023 Instructions* Patient Instructions* Juan Carlos Rajendra - 06/10/2022 3:07 PM EDT Cleanse wound with saline dailiy Apply tray to right heel ulceration daily Continue with post-op shoe Avoid pressure to heel while in bed documented in this encounterPromedica Memorial Hospital04-11-2023 History of Present illness Narrative* Juan Carlos Rajendra - 06/10/2022 2:54 PM EDT FOLLOW UP PODIATRIC OFFICE VISIT Chief Complaint: This 81 year old who presents for follow up:right heel ulceration. Patient presents to clinic for right heel ulceration. Patient is currently applying santyl to right heel ulceration and using surgical shoe PAIN EVALUATION No data found in the last 1 encounters. Hemoglobin A1C Date Value Ref Range Status 04/30/2022 5.4 4.3 - 5.6 % Final Comment: [place] [employer] guidelines indicate that patients with HgbA1c in the range 5.7-6.4% are at increased risk for development of diabetes, and intervention by lifestyle modification may be beneficial. HgbA1c greater or equal to 6.5% is considered diagnostic of diabetes. PCP: Mei Cummins MD PAST MEDICAL HISTORY Diagnosis Date Abdominal aortic aneurysm (AAA) without rupture (HCC) 11/19/2018 Atypical chest pain CAD (coronary artery disease) s/p CABG 1999, PCI w/ stents COPD (chronic obstructive pulmonary disease) (HCC) Diabetic ulcer of right foot (HCC) 04/30/2022 Hyperlipidemia Hyperlipidemia Hypertension Prostate cancer (HCC) Dx Dec 2014, s/p radiation, on hormonal therapy Current Outpatient Medications Medication Sig clopidogrel (PLAVIX) 75 mg tablet Take 1 tablet by mouth once daily. atorvastatin (LIPITOR) 20 mg tablet Take 1 tablet by mouth once daily. acetaminophen 325 mg cap Take 650 mg by mouth. LORazepam (ATIVAN) 1 mg tablet Take 1 tablet by mouth three times daily for 90 days. oxyCODONE IR (ROXICODONE) 5 mg immediate release tablet TAKE 1/2 TABLET BY MOUTH 4 TIMES DAILY NEEDED FOR SHORTNESS OF BREATH budesonide-formoterol (SYMBICORT) 160-4.5 mcg/actuation inhaler Inhale 2 Puffs as instructed twice daily. tamsulosin (FLOMAX) 0.4 mg Take 0.4 mg by mouth once daily. predniSONE (DELTASONE) 10 mg tablet Take 10 mg by mouth once daily. guaiFENesin (MUCINEX) 600 mg 12 hr tablet Take 2 tablets by mouth twice daily. nitroglycerin sublingual (NITROSTAT) 0.4 mg SL tablet Dissolve 1 tablet under the tongue every 5 minutes as needed. DULoxetine (CYMBALTA) 30 mg capsule 1 capsule once daily. ondansetron (ZOFRAN) 4 mg tablet 1 tablet as needed. aspirin, enteric coated (ASPIRIN, ENTERIC COATED) 81 mg EC tablet Take 81 mg by mouth once daily. DULERA 200-5 mcg/actuation inhaler Take 2 Puffs by mouth twice daily. tiotropium (SPIRIVA WITH HANDIHALER) 18 mcg inhalation capsule Inhale 1 capsule as instructed once daily. Use with handihaler. albuterol HFA (PROAIR HFA) 90 mcg/actuation inhaler Inhale 2 Puffs as instructed every 4 hours as needed for Wheezing/Shortness of Breath. No current facility-administered medications for this visit. ALLERGIES Allergen Reactions Imdur [Isosorbide M* Hives Black out and dizziness PAST SURGICAL HISTORY Procedure Laterality Date ANGIOGRAM EXTREMITY LUNG BIOPSY Left needle biopsy LUNG SURGERY HX 02/20/20 lt lung nodule removed PAST SURGICAL HISTORY OF TURP PAST SURGICAL HISTORY OF 03/02/1999 triple bypass Physical Exam: OBJECTIVE: Constitutional: Pt is a well developed 81 year old male who is alert, oriented, cooperative and in no apparent distress. Eyes: Following during examination. No redness or drainage. Respiratory: RR normal and nonlabored. Even breathing. No evidence of distress. Psychology: Patient is engaged during conversation. Normal affect and mood. Does not appear depressed or anxious. NVSI unchanged from previous visit. Dermatological: Ulceration #1 Location: left medial heel Measurement: 1.0 cm x 1.9 cm x 2 mm Base: 95% granular; 5% fibrotic. No drainage, no exposed bone tendon. No signs of infection Picture submitted in epic Musculoskeletal/Orthopaedic: Patient has no pain to palpation of right heel ASSESSMENT: (L97.048) Skin ulcer of right heel with fat layer 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) (primary encounter diagnosis) PLAN: Discussed ulceration of right heel. Today, sharp debridement was performed with dermal curette thrusubcutaneou tissue. Bleeding was present and controlled with pressure. Will switch to tray. Will have her continue with post-op shoe and offloading insert. Continue to offload heel while in bed. Could consider skin subsitute pending appearance in future weeks Juan Carlos Viveros DPM * Jacy Sunshine LPN - 06/10/2022 2:41 PM EDT AMB ROOMING INTAKE FLOWSHEET DATA Patient presents with: Right Foot - Established Patient, Follow Up, Ulcer Jacy Sunshine LPN documented in this encounterPromedica Memorial Hospital04-04-2023 History of Present illness Narrative* Tyrell Vigil DO - 06/03/2022 12:00 AM EDT NAME: OSWALDO CORLEY [facility] NO: [id number] DATE OF SERVICE: 06/03/2022 Subjective: Mr. Corley is here to follow up on right femoral endarterectomy. Overall, he is doing well. Denies any new complaints. He says his leg feels much improved. Objective: His vital signs are stable. He is in no distress. His incision is well healed. Vaughn were removed without difficulty. Assessment/Plan: Peripheral arterial disease with ulceration. We will get duplex and baseline ABIs post revascularization in a few weeks. He will follow up with me at that point in time. Tyrell Vigil D.O. KB/[id number] Audio #: [id number] Date Dictated: 06/03/2022 09:54:39 Date Typed: 06/09/2022 07:29:58 Date Revised: documented in this encounterPromedica [facility]03-28-2023 Miscellaneous Notes* Telephone Encounter - Mei Cummins MD - 05/27/2022 3:59 PM EDT OK to refill as ordered Mei Cummins MD documented in this encounterPromedica [facility] Hospital03-28-2023 Instructions* Patient Instructions* Juan Carlos Viveros - 05/27/2022 1:55 PM EDT Apply santyl to right heel ulceration daily Cleanse wound with saline and apply santyl and guaze Wear surgical shoe Make sure to avoid pressure while in bed documented in this encounterPromedica Memorial Hospital03-28-2023 History of Present illness Narrative* Juan Carlos Viveros - 05/27/2022 1:33 PM EDT FOLLOW UP PODIATRIC OFFICE VISIT Chief Complaint: This 81 year old who presents for follow up:right heel ulceration Patient presents to clinic for follow-up right heel ulceration. Patient is status post balloon angioplasty with atherectomy (05/13/22). Patient is using santyl currently and wearing post-op shoe He states the wound is appearing more and more healthier PAIN EVALUATION No data found in the last 1 encounters. Hemoglobin A1C Date Value Ref Range Status 04/30/2022 5.4 4.3 - 5.6 % Final Comment: [place] [employer] guidelines indicate that patients with HgbA1c in the range 5.7-6.4% are at increased risk for development of diabetes, and intervention by lifestyle modification may be beneficial. HgbA1c greater or equal to 6.5% is considered diagnostic of diabetes. PCP: Mei Cummins MD PAST MEDICAL HISTORY Diagnosis Date Abdominal aortic aneurysm (AAA) without rupture (HCC) 11/19/2018 Atypical chest pain CAD (coronary artery disease) s/p CABG 1999, PCI w/ stents COPD (chronic obstructive pulmonary disease) (HCC) Diabetic ulcer of right foot (HCC) 04/30/2022 Hyperlipidemia Hyperlipidemia Hypertension Prostate cancer (HCC) Dx Dec 2014, s/p radiation, on hormonal therapy Current Outpatient Medications Medication Sig atorvastatin (LIPITOR) 20 mg tablet Take 1 tablet by mouth once daily. acetaminophen 325 mg cap Take 650 mg by mouth. LORazepam (ATIVAN) 1 mg tablet Take 1 tablet by mouth three times daily for 90 days. oxyCODONE IR (ROXICODONE) 5 mg immediate release tablet TAKE 1/2 TABLET BY MOUTH 4 TIMES DAILY NEEDED FOR SHORTNESS OF BREATH budesonide-formoterol (SYMBICORT) 160-4.5 mcg/actuation inhaler Inhale 2 Puffs as instructed twice daily. clopidogrel (PLAVIX) 75 mg tablet Take 1 tablet by mouth once daily. tamsulosin (FLOMAX) 0.4 mg Take 0.4 mg by mouth once daily. predniSONE (DELTASONE) 10 mg tablet Take 10 mg by mouth once daily. guaiFENesin (MUCINEX) 600 mg 12 hr tablet Take 2 tablets by mouth twice daily. nitroglycerin sublingual (NITROSTAT) 0.4 mg SL tablet Dissolve 1 tablet under the tongue every 5 minutes as needed. DULoxetine (CYMBALTA) 30 mg capsule 1 capsule once daily. ondansetron (ZOFRAN) 4 mg tablet 1 tablet as needed. aspirin, enteric coated (ASPIRIN, ENTERIC COATED) 81 mg EC tablet Take 81 mg by mouth once daily. DULERA 200-5 mcg/actuation inhaler Take 2 Puffs by mouth twice daily. tiotropium (SPIRIVA WITH HANDIHALER) 18 mcg inhalation capsule Inhale 1 capsule as instructed once daily. Use with handihaler. albuterol HFA (PROAIR HFA) 90 mcg/actuation inhaler Inhale 2 Puffs as instructed every 4 hours as needed for Wheezing/Shortness of Breath. No current facility-administered medications for this visit. ALLERGIES Allergen Reactions Imdur [Isosorbide M* Hives Black out and dizziness PAST SURGICAL HISTORY Procedure Laterality Date ANGIOGRAM EXTREMITY LUNG BIOPSY Left needle biopsy LUNG SURGERY HX 02/20/20 lt lung nodule removed PAST SURGICAL HISTORY OF TURP PAST SURGICAL HISTORY OF 03/02/1999 triple bypass Physical Exam: OBJECTIVE: Constitutional: Pt is a well developed 81 year old male who is alert, oriented, cooperative and in no apparent distress. Eyes: Following during examination. No redness or drainage. Respiratory: RR normal and nonlabored. Even breathing. No evidence of distress. Psychology: Patient is engaged during conversation. Normal affect and mood. Does not appear depressed or anxious. Vascular: DP and PT pulses are audible to right foot Dermatological: Ulceration #1 Location: left medial heel Measurement: 1.0 cm x 1.9 cm x 2 mm Base: 60% granular; 40 % fibrotic. No drainage, no exposed bone tendon. No signs of infection Picture submitted in epic Lateral wound is now healed Musculoskeletal/Orthopaedic: Patient has no pain to palpation of right foot ASSESSMENT: (L97.412) Skin ulcer of right heel with fat layer 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) (primary encounter diagnosis) PLAN: Ulceration to right foot appears more healthy today since undergoing vascular intervention Today, the wound was debrided thru subcutaneous tissue with tissue nippers. Minimal bleeding present. Total debridement was 1.0 x 1.9 cm x 2 mm. Will continue with santyl I will have patient continue with post-op shoe and offloading of heel while in bed. Any pressure can result in slower healing I am out of the office next week. I will have him follow-up in 2 weeks. Will reaccess the wound in 2 weeks to see if santyl is still the treatment or if we switch to something else Juan Cralos Viveros DPM * Jacy Sunshine LPN - 05/27/2022 1:28 PM EDT AMB ROOMING INTAKE FLOWSHEET DATA Patient presents with: Right Foot - Established Patient, Follow Up, Ulcer Patient present with . Patient has ulcer to right heel. Jacy Sunshine LPN documented in this encounterPromedica [facility]03-21-2023 History of Present illness Narrative* Tyrell Vigil DO - 05/20/2022 10:04 AM EDT This office note has been dictated. Tyrell Vigil DO documented in this encounterPromedica Memorial Hospital03-17-2023 NoteHNO ID: [id number] Author: Rosa Michel RN Service: Care Management Author Type: Registered Nurse Type: Care Mgt Progress Note Filed: 05/16/2022 2:12 PM Note Text: CARE MANAGEMENT DISCHARGE NOTE SERVICE DATE: 05/16/2022 SERVICE TIME: 2:07 PM LOS: 3 days Admission Date: 05/13/2022 DISCHARGE ARRANGEMENT (list agency and phone number) Discharge Arrangement: Home with Relative CAREGIVER ASSESSMENT: Caregiver is ready, willing and able to meet the patient's needs as recommended by the inter-professional team:: Other: See Comment Patient's transition needs and plan for meeting these needs: Home with spouse, Palliative medicine, declined home care services. HANDOFF COMMUNICATION: Handoff to: Primary Care Physician Primary Care Physician Name/Phone: Mei Cummins MD TRANSPORTATION ARRANGEMENTS: Transportation Arrangements: Car Date of Trip: 05/16/22 Destination: Home Needs Prior to Discharge: Ready for Discharge;Discharge Transportation Caregiver is ready, willing and able to meet the patient's needs as recommended by the inter-professional team:: Other: See Comment IMM Follow Up Copy Given: Yes Copy given to:: Patient Method: In Person Transportation Arrangements: Car Date of Trip: 05/16/22 Destination: Home Discharge order in place. Met with patient and spouse in room, he has declined home care services. Spouse states he has an appointment set up already with Palliative medicine and if they decide he wants therapy she will assist with getting therapy. Spouse will provide transport home. Portable oxygen tank at bedside. SIGNATURE: Rosa Michel RN PATIENT NAME: Oswaldo Corley DATE: May 16, 2022 TIME: 2:07 PM PAGER/CONTACT #: [phone] [id number] NoteHNO ID: [id number] Author: Alethea Arreola PA-C Service: Vascular Surgery Author Type: Physician Mathematical Engineer Type: Progress Notes Filed: 05/16/2022 11:24 AM Note Text: [facility] POSTOP PROGRESS NOTE Template ID: [id number] Service Date: 05/16/2022 Admit Date: 05/13/2022Service Time: 1030 LOS: 3 day(s) Primary Service: Vascular Surgery Vascular Physician: Alex Rivas MD Interval Events/Issues: No events overnight. Tolerating diet. + BM this am. Pain controlled. Suazo removed this am, patient states he urinated when he had a BM, but not saved/ measured. SCr stable, good urine output. No CP, SOB at baseline. PT recommends home PT, patient declining home services at this time. Subjective Current Facility-Administered Medications Medication Dose Route Frequency albuterol 2.5 mg /3 mL (0.083 %) 2.5 mg (PROVENTIL) 2.5 mg INHALATION PRN fentaNYL 50 mcg/mL 50 mcg injection (SUBLIMAZE) 50 mcg INTRAVENOUS q 10 MIN PRN HYDROmorphone 0.2 mg injection (DILAUDID) 0.2 mg INTRAVENOUS q 5 MIN PRN oxyCODONE IR 5 mg tab(s) (ROXICODONE) 5 mg ORAL PRN acetaminophen 650 mg tab(s) (TYLENOL) 650 mg ORAL PRN ondansetron 4 mg tab(s) (ZOFRAN) 4 mg ORAL q 6 H PRN Or ondansetron (PF) 4 mg injection (ZOFRAN) 4 mg INTRAVENOUS q 6 H PRN prochlorperazine 10 mg injection (COMPAZINE) 10 mg INTRAVENOUS q 6 H PRN hydrALAZINE 5 mg injection (APRESOLINE) 5 mg INTRAVENOUS q 10 MIN PRN meperidine (PF) 12.5 mg injection (DEMEROL) 12.5 mg INTRAVENOUS q 10 MIN PRN heparin 5,000 Units injection 5,000 Units SUBCUTANEOUS q 12 H heparin 100 unit/mL 500 Units injection 5 mL INTRAVENOUS DIRECTED PRN NaCl 0.9% iv flush bag 20 mL INTRAVENOUS PRN ondansetron 4 mg tab(s) (ZOFRAN) 4 mg ORAL q 6 H PRN Or ondansetron (PF) 4 mg injection (ZOFRAN) 4 mg INTRAVENOUS q 6 H PRN senna-docusate 8.6-50 mg 1 tablet (SENNA-S) 1 tablet ORAL BID tiotropium bromide 2.5 mcg/actuation 1 Puff (SPIRIVA RESPIMAT) 1 Puff INHALATION DAILY atorvastatin 20 mg tab(s) (LIPITOR) 20 mg ORAL DAILY tamsulosin 0.4 mg cap(s) (FLOMAX) 0.4 mg ORAL AT BEDTIME albuterol HFA 90 mcg/actuation 2 Puff (PROVENTIL HFA, VENTOLIN HFA) 2 Puff INHALATION q 4 H PRN fluticasone-vilanterol 100-25 mcg/dose 1 Inhalation (BREO ELLIPTA) 1 Inhalation INHALATION DAILY DULoxetine 30 mg cap(s) (CYMBALTA) 30 mg ORAL DAILY predniSONE 10 mg tab(s) (DELTASONE) 10 mg ORAL DAILY acetaminophen 650 mg tab(s) (TYLENOL) 650 mg ORAL q 6 H labetalol 5 mg injection syringe (NORMODYNE) 5 mg INTRAVENOUS q 2 H PRN hydrALAZINE 10 mg injection (APRESOLINE) 10 mg INTRAVENOUS q 6 H PRN oxyCODONE IR 5 mg tab(s) (ROXICODONE) 5 mg ORAL q 6 H PRN aspirin 81 mg chewable tab(s) 81 mg ORAL DAILY clopidogrel 75 mg tab(s) (PLAVIX) 75 mg ORAL DAILY polyethylene glycol 3350 17 g packet 17 g ORAL DAILY PRN Medication and Non-Pharmacologic VTE Prophylaxis/Anticoagulants Anticoagulant AND Antiplatelet Medications (From admission, onward) Start Dose Route Frequency Last Action Ordered Stop 05/14/22 0930 aspirin 81 mg chewable tab(s) 81 mg ORAL DAILY Given, 05/16 84105/14/22 0900 -- 05/14/22 0930 clopidogrel 75 mg tab(s) (PLAVIX) 75 mg ORAL DAILY Given, 05/16 84105/14/22 0900 -- 05/13/22 2100 heparin 5,000 Units injection (Surgical Risk Categories) 5,000 Units SUBCUTANEOUS EVERY 12 HOURS Given, 05/17 0743 05/13/22 174 -- 05/13/22 1739 heparin 100 unit/mL 500 Units injection (Patient with IV access) 5 mL INTRAVENOUS DIRECTED NEEDED Ordered 05/13/221741 -- 05/13/22 2200 activity - mobilize patient ([place]) 05/13/22 1745 pneumatic compression stockings ([place]) VTE Prophylaxis: VTE prophylaxis appropriate ALLERGIES Allergen Reactions Imdur [Isosorbide M* Hives Black out and dizziness Objective PHYSICAL EXAM: Patient Vitals for the past 24 hrs: BP Temp Temp src Pulse Resp SpO2 05/16/22 0921 -- -- -- -- -- 99 % 05/16/22 0901 -- -- -- 85 18 95 % 05/16/22 0748 149/79 36.7 ?C (98.1 ?F) Oral 82 18 95 % 05/16/22 0341 129/88 37.1 ?C (98.7 ?F) Oral 83 17 95 % 05/15/22 2351 153/69 37 ?C (98.6 ?F) Oral 85 16 95 % 05/15/22 2004 131/61 37.1 ?C (98.8 ?F) Oral 85 17 94 % 05/15/22 1643 125/63 36.5 ?C (97.7 ?F) Oral 96 18 94 % 05/15/22 1242 117/61 -- Oral 99 18 100 % Intake/Output Summary (Last 24 hours) at 05/16/2022 1118 Last data filed at 05/16/2022 0921 Gross per 24 hour Intake 240 ml Output 1900 ml Net -1660 ml CONSTITUTIONAL: Well developed and No distress NEUROLOGIC/PSYCHIATRIC: Oriented to time, place AND person and alert LUNGS: Clear HEART: Regular rate AND rhythm ABDOMEN: Soft, Non-tender, and Bowel sounds present INTEGUMENTARY: R heel ulcer with fibrinous tissue SURGICAL SITES: Prevena right groin incision MUSCULOSKELETAL: No deformities Pulses/Signals: Biphasic DP/PT doppler signals bilaterally DATA: Laboratory: Recent Labs 05/16/22 0527 05/15/22 0532 05/14/22 0340 WBC 6.59 6.71 7.55 HB (more content not included)...[id number] NoteHNO ID: [id number] Author: Rosa Michel RN Service: Care Management Author Type: Registered Nurse Type: Care Mgt Progress Note Filed: 05/15/2022 4:38 PM Note Text: CARE MANAGEMENT PROGRESS NOTE SERVICE DATE: 05/15/2022 SERVICE TIME: 4:37 PM LOS: 2 days Needs Prior to Discharge: To Be Determined;Discharge Transportation [place] of Choice Given: Yes Level of Care Discussed: Home Care Financial Disclosure Provided: Yes Financial Disclosure Comments: Patient Provider List: Home Care Provider list within the patient's requested geographic area shared with the patient/family: Yes Quality and resource use metrics shared with the patient that are relevant to the patient's goals of care and treatment preferences:: Yes Metrics: Potentially Preventable 30-day Post Discharge Readmission Rates Met with patient at bedside, discussed PT recommendation for home therapy. Provided list of choices. Patient states he does not think he would want home therapy at discharge. He was willing to accept list and will ask again in am. SIGNATURE: Rosa Michel RN PATIENT NAME: Oswaldo Corley DATE: May 15, 2022 TIME: 4:37 PM PAGER/CONTACT #: [phone] [id number] NoteHNO ID: [id number] Author: Alethea Arreola PA-C Service: Vascular Surgery Author Type: Physician Mathematical Engineer Type: Progress Notes Filed: 05/15/2022 12:35 PM Note Text: [facility] POSTOP PROGRESS NOTE Template ID: [id number] Service Date: 05/15/2022 Admit Date: 05/13/2022Service Time: 145 LOS: 2 day(s) Primary Service: Vascular Surgery Vascular Physician: Alex Rivas MD Interval Events/Issues: No events overnight. Tx to floor. Tolerating diet. + flatus. Pain controlled. Difficult suazo placement -placed by Urology, plan trial void POD #3. SCr stable, good urine output. No CP, SOB at baseline. PT recommends home PT, patient declining home services at this time. Subjective Current Facility-Administered Medications Medication Dose Route Frequency albuterol 2.5 mg /3 mL (0.083 %) 2.5 mg (PROVENTIL) 2.5 mg INHALATION PRN fentaNYL 50 mcg/mL 50 mcg injection (SUBLIMAZE) 50 mcg INTRAVENOUS q 10 MIN PRN HYDROmorphone 0.2 mg injection (DILAUDID) 0.2 mg INTRAVENOUS q 5 MIN PRN oxyCODONE IR 5 mg tab(s) (ROXICODONE) 5 mg ORAL PRN acetaminophen 650 mg tab(s) (TYLENOL) 650 mg ORAL PRN ondansetron 4 mg tab(s) (ZOFRAN) 4 mg ORAL q 6 H PRN Or ondansetron (PF) 4 mg injection (ZOFRAN) 4 mg INTRAVENOUS q 6 H PRN prochlorperazine 10 mg injection (COMPAZINE) 10 mg INTRAVENOUS q 6 H PRN hydrALAZINE 5 mg injection (APRESOLINE) 5 mg INTRAVENOUS q 10 MIN PRN meperidine (PF) 12.5 mg injection (DEMEROL) 12.5 mg INTRAVENOUS q 10 MIN PRN heparin 5,000 Units injection 5,000 Units SUBCUTANEOUS q 12 H heparin 100 unit/mL 500 Units injection 5 mL INTRAVENOUS DIRECTED PRN NaCl 0.9% iv flush bag 20 mL INTRAVENOUS PRN ondansetron 4 mg tab(s) (ZOFRAN) 4 mg ORAL q 6 H PRN Or ondansetron (PF) 4 mg injection (ZOFRAN) 4 mg INTRAVENOUS q 6 H PRN senna-docusate 8.6-50 mg 1 tablet (SENNA-S) 1 tablet ORAL BID tiotropium bromide 2.5 mcg/actuation 1 Puff (SPIRIVA RESPIMAT) 1 Puff INHALATION DAILY atorvastatin 20 mg tab(s) (LIPITOR) 20 mg ORAL DAILY tamsulosin 0.4 mg cap(s) (FLOMAX) 0.4 mg ORAL AT BEDTIME albuterol HFA 90 mcg/actuation 2 Puff (PROVENTIL HFA, VENTOLIN HFA) 2 Puff INHALATION q 4 H PRN fluticasone-vilanterol 100-25 mcg/dose 1 Inhalation (BREO ELLIPTA) 1 Inhalation INHALATION DAILY DULoxetine 30 mg cap(s) (CYMBALTA) 30 mg ORAL DAILY predniSONE 10 mg tab(s) (DELTASONE) 10 mg ORAL DAILY acetaminophen 650 mg tab(s) (TYLENOL) 650 mg ORAL q 6 H labetalol 5 mg injection syringe (NORMODYNE) 5 mg INTRAVENOUS q 2 H PRN hydrALAZINE 10 mg injection (APRESOLINE) 10 mg INTRAVENOUS q 6 H PRN oxyCODONE IR 5 mg tab(s) (ROXICODONE) 5 mg ORAL q 6 H PRN aspirin 81 mg chewable tab(s) 81 mg ORAL DAILY clopidogrel 75 mg tab(s) (PLAVIX) 75 mg ORAL DAILY polyethylene glycol 3350 17 g packet 17 g ORAL DAILY PRN Medication and Non-Pharmacologic VTE Prophylaxis/Anticoagulants Anticoagulant AND Antiplatelet Medications (From admission, onward) Start Dose Route Frequency Last Action Ordered Stop 05/14/22929 aspirin 81 mg chewable tab(s) 81 mg ORAL DAILY Given, 05/15 94605/14/22899 -- 05/14/22929 clopidogrel 75 mg tab(s) (PLAVIX) 75 mg ORAL DAILY Given, 05/15 94505/14/22899 -- 05/13/22 2100 heparin 5,000 Units injection (Surgical Risk Categories) 5,000 Units SUBCUTANEOUS EVERY 12 HOURS Given, 05/15 0947 05/13/22 174 -- 05/13/22 173 heparin 100 unit/mL 500 Units injection (Patient with IV access) 5 mL INTRAVENOUS DIRECTED NEEDED Ordered 05/13/22 174 -- 05/13/22 2200 activity - mobilize patient ([place]) 05/13/221744 pneumatic compression stockings ([place], [place]) VTE Prophylaxis: VTE prophylaxis appropriate ALLERGIES Allergen Reactions Imdur [Isosorbide M* Hives Black out and dizziness Objective PHYSICAL EXAM: Patient Vitals for the past 24 hrs: BP Temp Temp src Pulse Resp SpO2 Weight 05/15/22 0830 -- -- -- -- -- 99 % -- 05/15/22 0732 123/61 36.4 ?C (97.5 ?F) Oral 87 16 98 % -- 05/15/22 0423 134/64 36.7 ?C (98.1 ?F) Oral 99 19 95 % -- 05/14/22 2323 136/62 36.5 ?C (97.7 ?F) -- 90 -- 94 % -- 05/14/22 2014 129/62 36.6 ?C (97.9 ?F) Oral 82 19 96 % -- 05/14/22 1525 139/69 36.3 ?C (97.3 ?F) Oral 85 18 99 % -- 05/14/22 1500 -- -- -- -- -- -- 80.2 kg (176 lb 14.4 oz) 05/14/22 1400 124/82 -- -- 85 21 97 % -- 05/14/22 1300 135/67 -- -- 98 (!) 33 99 % -- 05/14/22 1247 -- -- -- 85 29 99 % -- Intake/Output Summary (Last 24 hours) at 05/15/2022 1228 Last data filed at 05/15/2022 1132 Gross per 24 hour Intake 600 ml Output 2300 ml Net -1700 ml CONSTITUTIONAL: Well developed and No distress NEUROLOGIC/PSYCHIATRIC: Oriented to time, place AND person and alert LUNGS: Clear HEART: Regular rate AND rhythm ABDOMEN: Soft, Non-tender, and Bowel sounds present INTEGUMENTARY: R heel ulcer with fibrinous tissue SURGICAL SITES: Prevena right groin incision MUSCULOSKELETAL: No deformities Pulses/Signals: Biphasic DP/PT doppler signals bila (more content not included)...[facility] [id number] NoteHNO ID: [id number] Author: Jb Sotelo RN Service: Care Management Author Type: Registered Nurse Type: Care Mgt Initial Assessment Filed: 05/14/2022 1:33 PM Note Text: CARE MANAGEMENT: ASSESSMENT AND DISCHARGE PLAN SERVICE DATE: May 14, 2022 SERVICE TIME: 1327 Patient is currently in the icu: on 2 liters nc. Case management will follow up re: transition care needs. He initially presented to the hospital for vascular surgery intervention. He lives at home with his spouse, is independent with adls, his family can provide transport to home. Health Care Power of [place] Surveillance Officer HCPOA primary agent: Serenity Corley (spouse) [phone] / [phone] hcpoa 1st alternate: Malu Corley (daughter) [phone] PRIMARY CARE PHYSICIAN: Mei Cummins MD Primary Contact: Extended Emergency Contact Information Primary Emergency Contact: Serenity Corley[facility] primary [facility]) Address: [address] [place] [address] [place] [address] Mobile Relation: Spouse Secondary Emergency Contact: Malu Corley([facility] 1st alternate) Mobile Relation: Daughter ADMISSION STATUS: Inpatient Insurance Provider: MEDICARE A AND B NEEDS PRIOR TO DISCHARGE Needs Prior to Discharge: To Be Determined POTENTIAL TRANSITION PLANS To Be Determined Based on clinical judgement, Care Management will address the following needs: Medical;Functional Patient's perception of need for this admission: vasc surgery ADVANCE DIRECTIVES Current Advance Directive: Health Care Power of [place] Surveillance Officer In Chart: Yes Up To Date and Valid: Yes MS/BEHAVIOR Baseline Mental Status Prior to this Illness what was the patient's Baseline Mental Status?: Alert AND Oriented Prior to this illness, has anyone described the patient having any of the following behaviors?: Not Applicable Relationship of the informant to the patient:: Self READMISSION Last Discharge Date: 03/28/22 Is this Within the Past 30 days? 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 scores in the EMR?: No Any potential risks related to substance abuse and/or behavioral health?: No Based on clinical judgement, Care Management will address the following needs: Medical, Functional CAREGIVER ASSESSMENT Caregiver is ready, willing and able to meet the patient's needs as recommended by the inter-professional team:: Yes MEDICAL Health Issues Impacting Discharge Plan: (s/p vasc surgery intervention) Medication Adherance I am convinced of the importance of my prescription medication: 0 - Agree Completely I worry that my prescription medication will do more harm than good to me : 0 - Disagree Completely I feel financially burdened by my [id number] expenses for my prescription medication:: 0 - Disagree Completely Risk Score: 0 Med Adherance Assessement not completed due to: ICU - Unable to communicate FUNCTIONAL How do you manage to accomplish the following: Independent: Ambulation;Bathe/Shower;Dress;Meals/Meal Prep;Going to the bathroom;Medication Management;Transportation to appointments/community Services/Needs//Equipment Does Patient Currently Receive Any Community Services or Home Care?: None Equipment Prior to Admission: Cane (oxygen 2-3 liters nc as needed, [employer] (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 yes SIGNATURE: Jb Sotelo RN PATIENT NAME: Oswaldo Corley DATE: May 14, 2022 TIME: 1:27 PM CONTACT #: [phone] NoteHNO ID: [id number] Author: Mrasha Blanca MD Service: Vascular Surgery Author Type: Resident Type: Progress Notes Filed: 05/14/2022 11:38 AM Note Text: [facility] POSTOP PROGRESS NOTE Template ID: [id number] Service Date: 05/14/2022 Admit Date: 05/13/2022Service Time: 11:27 AM LOS: 1 day(s) Primary Service: Vascular Surgery Vascular Physician: Dr. Alex Rivas Interval Events/Issues: No major issues overnight Pain under control Denies any pain or changes to vascular exams overnight Subjective Current Facility-Administered Medications Medication Dose Route Frequency heparin 5,000 Units injection 5,000 Units SUBCUTANEOUS q 12 H heparin 100 unit/mL 500 Units injection 5 mL INTRAVENOUS DIRECTED PRN NaCl 0.9% iv flush bag 20 mL INTRAVENOUS PRN ondansetron 4 mg tab(s) (ZOFRAN) 4 mg ORAL q 6 H PRN Or ondansetron (PF) 4 mg injection (ZOFRAN) 4 mg INTRAVENOUS q 6 H PRN senna-docusate 8.6-50 mg 1 tablet (SENNA-S) 1 tablet ORAL BID tiotropium bromide 2.5 mcg/actuation 1 Puff (SPIRIVA RESPIMAT) 1 Puff INHALATION DAILY atorvastatin 20 mg tab(s) (LIPITOR) 20 mg ORAL DAILY tamsulosin 0.4 mg cap(s) (FLOMAX) 0.4 mg ORAL AT BEDTIME albuterol HFA 90 mcg/actuation 2 Puff (PROVENTIL HFA, VENTOLIN HFA) 2 Puff INHALATION q 4 H PRN fluticasone-vilanterol 100-25 mcg/dose 1 Inhalation (BREO ELLIPTA) 1 Inhalation INHALATION DAILY DULoxetine 30 mg cap(s) (CYMBALTA) 30 mg ORAL DAILY predniSONE 10 mg tab(s) (DELTASONE) 10 mg ORAL DAILY acetaminophen 650 mg tab(s) (TYLENOL) 650 mg ORAL q 6 H labetalol 5 mg injection syringe (NORMODYNE) 5 mg INTRAVENOUS q 2 H PRN hydrALAZINE 10 mg injection (APRESOLINE) 10 mg INTRAVENOUS q 6 H PRN oxyCODONE IR 5 mg tab(s) (ROXICODONE) 5 mg ORAL q 6 H PRN aspirin 81 mg chewable tab(s) 81 mg ORAL DAILY clopidogrel 75 mg tab(s) (PLAVIX) 75 mg ORAL DAILY polyethylene glycol 3350 17 g packet 17 g ORAL DAILY PRN Medication and Non-Pharmacologic VTE Prophylaxis/Anticoagulants Anticoagulant AND Antiplatelet Medications (From admission, onward) Start Dose Route Frequency Last Action Ordered Stop 05/14/22929 aspirin 81 mg chewable tab(s) 81 mg ORAL DAILY Given, 05/14 92905/14/22 09 -- 05/14/22929 clopidogrel 75 mg tab(s) (PLAVIX) 75 mg ORAL DAILY Given, 05/14 1023 05/14/22 0900 -- 05/13/22 2100 heparin 5,000 Units injection (Surgical Risk Categories) 5,000 Units SUBCUTANEOUS EVERY 12 HOURS Given, 05/14 0805/13/22 174 -- 05/13/22 173 heparin 100 unit/mL 500 Units injection (Patient with IV access) 5 mL INTRAVENOUS DIRECTED NEEDED Ordered 05/13/221741 -- 05/13/222199 activity - mobilize patient ([place]) 05/13/22 174 pneumatic compression stockings ([place] VTE Prophylaxis: VTE prophylaxis appropriate ALLERGIES Allergen Reactions Imdur [Isosorbide M* Hives Black out and dizziness Objective PHYSICAL EXAM: Patient Vitals for the past 24 hrs: BP Temp Temp src Pulse Resp SpO2 Height Weight 05/14/22 0836 -- -- -- 84 21 98 % -- -- 05/14/22 0800 -- 37.2 ?C (99 ?F) Oral -- -- -- -- -- 05/14/22 0700 -- -- -- 77 12 98 % -- -- 05/14/22 0600 114/60 -- -- 77 15 98 % -- -- 05/14/22 0500 124/64 -- -- 80 16 97 % -- -- 05/14/22 0400 128/65 36.9 ?C (98.4 ?F) Oral 83 12 97 % -- 79.4 kg (175 lb 0.7 oz) 05/14/22 0300 110/87 -- -- 77 13 99 % -- -- 05/14/22 0200 124/61 -- -- 76 20 99 % -- -- 05/14/22 0100 123/58 -- -- 80 17 98 % -- -- 05/14/22 0000 138/59 36.8 ?C (98.2 ?F) Oral 85 17 98 % 180.3 cm (5' 10.98) 79.4 kg (175 lb 0.7 oz) 05/13/22 2300 112/61 -- -- 75 14 99 % -- -- 05/13/22 2200 108/59 -- -- 79 14 99 % -- -- 05/13/22 2100 116/75 -- -- 90 20 98 % -- -- 05/13/22 2000 121/69 36.8 ?C (98.2 ?F) Oral 83 20 99 % -- -- 05/13/22 1900 117/63 -- -- 70 15 97 % -- -- 05/13/22 1830 -- -- -- 76 15 96 % -- -- 05/13/22 1815 -- -- -- 79 19 98 % -- -- 05/13/22 1800 129/71 -- -- 76 10 99 % -- -- 05/13/22 1745 119/70 -- -- 78 11 100 % -- -- Intake/Output Summary (Last 24 hours) at 05/14/2022 1126 Last data filed at 05/14/2022 0900 Gross per 24 hour Intake 2340 ml Output 2035 ml Net 305 ml GENERAL: Alert, no distress, cooperative SKIN: No rashes or lesions. HEAD/SINUSES: Atraumatic EYES: Anicteric, EOMI OROPHARYNX: Oral mucosa moist NECK: Supple LUNGS: CTAB, no increased work of breathing CARDIAC:RRR, Normal S1 and S2; no rubs, murmurs, or gallops ABDOMEN: Abdomen soft, non-tender, non-distended EXTREMITIES: No peripheral edema Pulses/Signals: Femoral Right: Deferred - provena wound vac placement - Left: Palpable +1 Dorsalis Pedis Right: Biphasic Signal Posterior Tibial Right: Biphasic Signal DATA: Laboratory: Recent Labs 05/14/22 03405/13/221816 WBC 7.55 11.23* HB 11.5* 11.7* HCT 35.8* 36.2* PLT 153 163 Recent Labs 05/14/22 03405/13/221816 NA 141 139 K 4.1 4.0 BUN 14 13 CREAT 0.82 0.72* GLUC 112* 130* MG 2.0 1.9 Recent Labs 05/13/22 (more content not included)...[id number] NoteHNO ID: [id number] Author: Alethea Arreola PA-C Service: Vascular Surgery Author Type: Physician Mathematical Engineer Type: Progress Notes Filed: 05/14/2022 1:28 PM Note Text: [facility]ULAR [facility] POSTOP PROGRESS NOTE Template ID: [id number] Service Date: 05/14/2022 Admit Date: 05/13/2022Service Time: 1000 LOS: 1 day(s) Primary Service: Vascular Surgery Vascular Physician: Alex Rivas MD Interval Events/Issues: No events overnight. Tolerating diet. + flatus. Pain controlled. Difficult suazo placement -placed by Urology, plan trial void POD #3. SCr stable, good urine output. Pain controlled. No CP, SOB at baseline. OOB to chair. Subjective Current Facility-Administered Medications Medication Dose Route Frequency heparin 5,000 Units injection 5,000 Units SUBCUTANEOUS q 12 H heparin 100 unit/mL 500 Units injection 5 mL INTRAVENOUS DIRECTED PRN NaCl 0.9% iv flush bag 20 mL INTRAVENOUS PRN ondansetron 4 mg tab(s) (ZOFRAN) 4 mg ORAL q 6 H PRN Or ondansetron (PF) 4 mg injection (ZOFRAN) 4 mg INTRAVENOUS q 6 H PRN senna-docusate 8.6-50 mg 1 tablet (SENNA-S) 1 tablet ORAL BID tiotropium bromide 2.5 mcg/actuation 1 Puff (SPIRIVA RESPIMAT) 1 Puff INHALATION DAILY atorvastatin 20 mg tab(s) (LIPITOR) 20 mg ORAL DAILY tamsulosin 0.4 mg cap(s) (FLOMAX) 0.4 mg ORAL AT BEDTIME albuterol HFA 90 mcg/actuation 2 Puff (PROVENTIL HFA, VENTOLIN HFA) 2 Puff INHALATION q 4 H PRN fluticasone-vilanterol 100-25 mcg/dose 1 Inhalation (BREO ELLIPTA) 1 Inhalation INHALATION DAILY DULoxetine 30 mg cap(s) (CYMBALTA) 30 mg ORAL DAILY predniSONE 10 mg tab(s) (DELTASONE) 10 mg ORAL DAILY acetaminophen 650 mg tab(s) (TYLENOL) 650 mg ORAL q 6 H labetalol 5 mg injection syringe (NORMODYNE) 5 mg INTRAVENOUS q 2 H PRN hydrALAZINE 10 mg injection (APRESOLINE) 10 mg INTRAVENOUS q 6 H PRN oxyCODONE IR 5 mg tab(s) (ROXICODONE) 5 mg ORAL q 6 H PRN aspirin 81 mg chewable tab(s) 81 mg ORAL DAILY clopidogrel 75 mg tab(s) (PLAVIX) 75 mg ORAL DAILY Medication and Non-Pharmacologic VTE Prophylaxis/Anticoagulants Anticoagulant AND Antiplatelet Medications (From admission, onward) Start Dose Route Frequency Last Action Ordered Stop 05/14/22929 aspirin 81 mg chewable tab(s) 81 mg ORAL DAILY Given, 05/14 92905/14/22 09 -- 05/14/22929 clopidogrel 75 mg tab(s) (PLAVIX) 75 mg ORAL DAILY Given, 05/14 1023 05/14/22 0900 -- 05/13/22 2100 heparin 5,000 Units injection (Surgical Risk Categories) 5,000 Units SUBCUTANEOUS EVERY 12 HOURS Given, 05/14 0805/13/22 174 -- 05/13/22 173 heparin 100 unit/mL 500 Units injection (Patient with IV access) 5 mL INTRAVENOUS DIRECTED NEEDED Ordered 05/13/22 174 -- 05/13/22 2200 activity - mobilize patient ([place]) 05/13/22 174 pneumatic compression stockings ([place]) VTE Prophylaxis: VTE prophylaxis appropriate ALLERGIES Allergen Reactions Imdur [Isosorbide M* Hives Black out and dizziness Objective PHYSICAL EXAM: Patient Vitals for the past 24 hrs: BP Temp Temp src Pulse Resp SpO2 Height Weight 05/14/22 0836 -- -- -- 84 21 98 % -- -- 05/14/22 08 -- 37.2 ?C (99 ?F) Oral -- -- -- -- -- 05/14/22 0700 -- -- -- 77 12 98 % -- -- 05/14/22 0600 114/60 -- -- 77 15 98 % -- -- 05/14/22 0500 124/64 -- -- 80 16 97 % -- -- 05/14/22 0400 128/65 36.9 ?C (98.4 ?F) Oral 83 12 97 % -- 79.4 kg (175 lb 0.7 oz) 05/14/22 0300 110/87 -- -- 77 13 99 % -- -- 05/14/22 0200 124/61 -- -- 76 20 99 % -- -- 05/14/22 0100 123/58 -- -- 80 17 98 % -- -- 05/14/22 0000 138/59 36.8 ?C (98.2 ?F) Oral 85 17 98 % 180.3 cm (5' 10.98) 79.4 kg (175 lb 0.7 oz) 05/13/22 2300 112/61 -- -- 75 14 99 % -- -- 05/13/22 2200 108/59 -- -- 79 14 99 % -- -- 05/13/22 2100 116/75 -- -- 90 20 98 % -- -- 05/13/22 2000 121/69 36.8 ?C (98.2 ?F) Oral 83 20 99 % -- -- 05/13/22 1900 117/63 -- -- 70 15 97 % -- -- 05/13/22 1830 -- -- -- 76 15 96 % -- -- 05/13/22 1815 -- -- -- 79 19 98 % -- -- 05/13/22 1800 129/71 -- -- 76 10 99 % -- -- 05/13/22 1745 119/70 -- -- 78 11 100 % -- -- Intake/Output Summary (Last 24 hours) at 05/14/2022 1034 Last data filed at 05/14/2022 0900 Gross per 24 hour Intake 2440 ml Output 2035 ml Net 405 ml CONSTITUTIONAL: Well developed and No distress NEUROLOGIC/PSYCHIATRIC: Oriented to time, place AND person and alert LUNGS: Clear HEART: Regular rate AND rhythm ABDOMEN: Soft, Non-tender, and Bowel sounds present INTEGUMENTARY: R heel ulcer pink with fibrinous tissue SURGICAL SITES: Prevena right groin incision MUSCULOSKELETAL: No deformities Pulses/Signals: Biphasic DP/PT doppler signals bilaterally DATA: Laboratory: Recent Labs 05/14/22 0340 05/13/22 1817 WBC 7.55 11.23* HB 11.5* 11.7* HCT 35.8* 36.2* PLT 153 163 Recent Labs 05/14/22 0340 05/13/221816 NA 141 139 K 4.1 4.0 BUN 14 13 CREAT 0.82 0.72* GLUC 112* 130* MG 2.0 1.9 Recent Labs 05/13/221816 APTT 31.2 INR <0.9* Impression: (more content not included)...[facility] [id number] NoteHNO ID: [id number] Author: Arleen Pringle MD Service: Critical Care Author Type: Anesthesiologist Type: Progress Notes Filed: 05/14/2022 1:00 PM Note Text: SURGICAL INTENSIVE CARE UNIT PROGRESS NOTE Patient Name: Oswaldo Corley Admission Date: 05/13/2022 Date of Evaluation: May 14, 2022 Events from the last 12-24 hours reviewed. Registered Nurse, Pharmacist and Residents performed multidisciplinary rounds. 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 Intra-op difficult suazo placement due to urethral stricture HOSPITAL COURSE: - 05/13 Admitted to SICU Postoperatively CURRENT CONDITION: Stable OVERNIGHT EVENTS/INTERVAL HISTORY: No acute overnight events Reports pain is minimal, had a slight headache that has since resolved PHYSICAL EXAM: BP 114/60 Pulse 77 Temp 36.9 ?C (98.4 ?F) (Oral) Resp 15 Ht 180.3 cm (5' 10.98) Wt 79.4 kg (175 lb 0.7 oz) SpO2 98% BMI 24.42 kg/m? Body mass index is 24.42 kg/m?. GENERAL: No acute distress, conversant, friendly NEURO: Alert and oriented with no gross focal deficits CARDIAC: Regular rate and rhythm LUNGS: Non labored breathing with NC supplementation ABDOMEN: Soft EXTREMITIES: Warm and well perfused, with dopplerable pulses LABS: CBC, Coags, BMP, Mg, Phos Recent Labs 05/14/22 0340 03/14/23 1817 WBC 7.55 11.23* HB 11.5* 11.7* HCT 35.8* 36.2* PLT 153 163 INR -- <0.9* APTT -- 31.2 NA 141 139 K 4.1 4.0 CHLOR 105 104 CO2 28 27 BUN 14 13 CREAT 0.82 0.72* GLUC 112* 130* CA 8.7 8.3* MG 2.0 1.9 P 3.7 3.2 Liver Function, Amylase, AND Lipase Cardiac Labs No results for input(s): CKTEST, CKMB, CKMBP, TROPT, PBNP in the last 168 hours. INTAKE/OUTPUT: Date 05/13/22699 - 05/14/2265805/14/22699 - 05/15/22 06 Shift 5477-6110 6962-4236 1500-4382 24 Hour Total 4685-4740 9005-0819 9760-2254 24 Hour Total INTAKE IV 1100 1100 2200 Volume (mL) (ceFAZolin iv piggyback 2 g in D5W (iso-osmotic) 100 mL (ANCEF)) 100 100 Volume (mL) (lactated ringers iv infusion) 850 850 Volume (mL) (lactated ringers iv infusion) 4689 945 5487 Shift Total 1100 1100 2200 OUTPUT Urine 490 284 675 0230 OR Urine Output 490 260 750 Output ( Indwelling Urinary Catheter 05/13/22 Coude 16 Fr) 305 560 865 Blood 100 100 Estimated Blood loss 100 100 Shift Total 490 013 885 3046 Weight (kg) 79.4 79.4 79.4 79.4 79.4 79.4 CURRENT MEDS: Current Facility-Administered Medications Medication Dose Route Frequency heparin 5,000 Units injection 5,000 Units SUBCUTANEOUS q 12 H heparin 100 unit/mL 500 Units injection 5 mL INTRAVENOUS DIRECTED PRN NaCl 0.9% iv flush bag 20 mL INTRAVENOUS PRN fentaNYL 50 mcg/mL 25-50 mcg injection (SUBLIMAZE) 25-50 mcg INTRAVENOUS q 2 H PRN ondansetron 4 mg tab(s) (ZOFRAN) 4 mg ORAL q 6 H PRN Or ondansetron (PF) 4 mg injection (ZOFRAN) 4 mg INTRAVENOUS q 6 H PRN senna-docusate 8.6-50 mg 1 tablet (SENNA-S) 1 tablet ORAL BID tiotropium bromide 2.5 mcg/actuation 1 Puff (SPIRIVA RESPIMAT) 1 Puff INHALATION DAILY atorvastatin 20 mg tab(s) (LIPITOR) 20 mg ORAL DAILY tamsulosin 0.4 mg cap(s) (FLOMAX) 0.4 mg ORAL AT BEDTIME albuterol HFA 90 mcg/actuation 2 Puff (PROVENTIL HFA, VENTOLIN HFA) 2 Puff INHALATION q 4 H PRN fluticasone-vilanterol 100-25 mcg/dose 1 Inhalation (BREO ELLIPTA) 1 Inhalation INHALATION DAILY DULoxetine 30 mg cap(s) (CYMBALTA) 30 mg ORAL DAILY predniSONE 10 mg tab(s) (DELTASONE) 10 mg ORAL DAILY acetaminophen 650 mg tab(s) (TYLENOL) 650 mg ORAL q [address] 40 mg tab(s) (PROTONIX) 40 mg ORAL DAILY (6 AM) labetalol 5 mg injection syringe (NORMODYNE) 5 mg INTRAVENOUS q 2 H PRN hydrALAZINE 10 mg injection (APRESOLINE) 10 mg INTRAVENOUS q 6 H PRN ASSESSMENT AND PLAN: Oswaldo Corley is a 81 year old male with past medical/surgical history of HTN, HLD, anxiety, CAD s/p CABG x3, PCI (on ASA/Plavix) COPD (on home 3L O2), 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 Intra-op difficult suazo placement due to uretheral stricture REASON FOR ICU ADMISSION: q1hr neurovascular checks Neuro: history of anxiety - Pain control: Scheduled tylenol. PRN oxycodone (takes home oxycodone). Discontinue fentanyl PRN - Delirium: None - Hold home ativan, resume cymbalta CV: PAD, CAD s/p CABG - Continuous cardiac monitoring - Maintain SBP <160, PRN labetalol or PRN hydral - q4hr neurovascular checks - Prevena placed over right groin incision - ASA and Plavix initiated - Con (more content not included)...[facility] [id number] NoteHNO ID: [id number] Author: MANI Quach Service: ? Author Type: Pilates Coordinator Type: Anesthesia Procedure Notes Filed: 05/13/2022 11:28 AM Note Text: ANESTHESIOLOGY PROCEDURE NOTE PIV General Information Procedure Start Time/Medication Administration: 05/13/2022 11:00 AM Patient Location: OR Staffing Anesthesiologist: Gabriela Hurst MD Performed by: anesthesiologist Preparation Sterility Preparation: hand hygiene performed prior to procedure, surgical cap used, mask used, skin prep agent completely dried prior to procedure Site Prep: Betadine and chlorhexidine Procedure Details Indication: need for IV access Needle Size/Type: 18 gauge angiocath Orientation: Left Location: Forearm Imaging Guidance Used: No SIGNATURE: MANI Quach PATIENT NAME: Oswaldo Corley DATE: May 13, 2022 TIME: 11:27 AM CSN: [id number] NoteHNO ID: [id number] Author: MANI Quach Service: ? Author Type: Pilates Coordinator Type: Anesthesia Procedure Notes Filed: 05/13/2022 11:25 AM Note Text: ANESTHESIOLOGY PROCEDURE NOTE Airway General Information Procedure Start Time/Medication Administration: 05/13/2022 11:02 AM Patient location during procedure: OR Patient identity confirmed: arm band Staffing CAA: MANI Quach Performed by: KIMBERLYN Indications and Patient Condition Indications for airway management: anesthesia Preoxygenated: yes anesthesia circuit Method: sleep Difficult Mask: No Airway Accessory: oral airway Final Airway Details Final airway type: endotracheal airway Final Endotracheal Airway: ETT Cuffed: yes Successful intubation technique: direct laryngoscopy Endotracheal tube insertion site: oral Blade: Soni Blade size: #4 ETT size (mm): 8.0 Measured from: lips Measurement (cm): 22 Placement verified by: capnometry Cormack-Lehane Classification: grade I - full view of glottis Number of attempts at approach: 1 Airway not difficult Comments Airway performed by Michelle Camacho PA-C SIGNATURE: MANI Quach PATIENT NAME: Oswaldo Corley DATE: May 13, 2022 TIME: 11:24 AM CSN: [id number] NoteHNO ID: [id number] Author: MANI Quach Service: ? Author Type: Pilates Coordinator Type: Anesthesia Procedure Notes Filed: 05/13/2022 11:24 AM Note Text: ANESTHESIOLOGY PROCEDURE NOTE A-Line General Information Procedure Start Time/Medication Administration: 05/13/2022 11:07 AM Consent Obtained: Yes Indications: continuous blood pressure monitoring and blood sampling needed Staffing CAA: MANI Quach Performed by: CAA Preparation Sterility Preparation: sterile gloves, drapes, and procedure tray, surgical cap used, mask used, sterile drape used during line insertion, skin prep agent completely dried prior to procedure Site Prep: Chlorhexidine Procedure Details Catheter Size: 20 G Catheter Length: 5.25 in Guidewire Used: Yes Laterality: right Site: radial artery Ultrasound Guided: No Line Secured: tape and occlusive biodressing Events Events: patient tolerated procedure well with no complications SIGNATURE: MANI Quach PATIENT NAME: Oswaldo Corley DATE: May 13, 2022 TIME: 11:23 AM CSN: [id number] History of Present illness Narrative* Bela Manzano MD - 05/12/2022 11:40 AM EDT Images from the original note were not included. [facility]IOLOGY Cardiology ([facility]) [address] [id number] OUTPATIENT VISIT DATE 05/12/2022 PRIMARY CARE PHYSICIAN: Mei Cummins [address] [place] [address] HISTORY OF PRESENT ILLNESS: Mr. Corley is a 81 year old gentleman with coronary artery disease and remote coronary bypass grafting, hypertension, dyslipidemia, COPD, with a history of squamous cell carcinoma status post thoracotomy with left lower lobe lung wedge resection and radiation therapy who presents for routine follow-up. He is scheduled for right femoral endarterectomy tomorrow. He has a nonhealing wound on his right heel. He has not had symptoms of chest pain or pressure. His functional capacity is limited by his breathing and shortness of breath. However, there is been no changes since his last visit. He has not had symptoms concerning for CHF including PND, orthopnea, or lower extremity edema. PAST MEDICAL HISTORY Diagnosis Date Abdominal aortic aneurysm (AAA) without rupture (HCC) 11/19/2018 Atypical chest pain CAD (coronary artery disease) s/p CABG 1999, PCI w/ stents COPD (chronic obstructive pulmonary disease) (HCC) Diabetic ulcer of right foot (HCC) 04/30/2022 Hyperlipidemia Hyperlipidemia Hypertension Prostate cancer (HCC) Dx Dec 2014, s/p radiation, on hormonal therapy PAST SURGICAL HISTORY Procedure Laterality Date ANGIOGRAM EXTREMITY LUNG BIOPSY Left needle biopsy LUNG SURGERY HX 02/20/20 lt lung nodule removed PAST SURGICAL HISTORY OF TURP PAST SURGICAL HISTORY OF 03/02/1999 triple bypass SOCIAL HISTORY Social History Tobacco Use Smoking status: Former Packs/day: 2.00 Years: 40.00 Pack years: 80.00 Types: Cigarettes Start date: 11/08/1962 Quit date: 05/13/2002 Years since quittin.0 Smokeless tobacco: Never Vaping Use Vaping Use: Never used Substance Use Topics Alcohol use: Not Currently Alcohol/week: 3.0 standard drinks Types: 3 Cans of beer per week Comment: light beer Drug use: No FAMILY HISTORY Problem Relation Age of Onset Cancer Mother breast, bone Cancer Sister breast Emphysema Sister Smoker Diabetes Father Heart Father Diabetes Brother Heart Brother other (Other) Brother Parkinsons Diabetes Paternal Grandmother Heart Paternal Grandmother ALLERGIES: ALLERGIES Allergen Reactions Imdur [Isosorbide M* Hives Black out and dizziness MEDICATIONS: acetaminophen 325 mg cap Take 650 mg by mouth. LORazepam (ATIVAN) 1 mg tablet Take 1 tablet by mouth three times daily for 90 days. oxyCODONE IR (ROXICODONE) 5 mg immediate release tablet TAKE 1/2 TABLET BY MOUTH 4 TIMES DAILY NEEDED FOR SHORTNESS OF BREATH budesonide-formoterol (SYMBICORT) 160-4.5 mcg/actuation inhaler Inhale 2 Puffs as instructed twice daily. clopidogrel (PLAVIX) 75 mg tablet Take 1 tablet by mouth once daily. tamsulosin (FLOMAX) 0.4 mg Take 0.4 mg by mouth once daily. predniSONE (DELTASONE) 10 mg tablet Take 10 mg by mouth once daily. guaiFENesin (MUCINEX) 600 mg 12 hr tablet Take 2 tablets by mouth twice daily. nitroglycerin sublingual (NITROSTAT) 0.4 mg SL tablet Dissolve 1 tablet under the tongue every 5 minutes as needed. DULoxetine (CYMBALTA) 30 mg capsule 1 capsule once daily. ondansetron (ZOFRAN) 4 mg tablet 1 tablet as needed. aspirin, enteric coated (ASPIRIN, ENTERIC COATED) 81 mg EC tablet Take 81 mg by mouth once daily. DULERA 200-5 mcg/actuation inhaler Take 2 Puffs by mouth twice daily. tiotropium (SPIRIVA WITH HANDIHALER) 18 mcg inhalation capsule Inhale 1 capsule as instructed once daily. Use with handihaler. albuterol HFA (PROAIR HFA) 90 mcg/actuation inhaler Inhale 2 Puffs as instructed every 4 hours as needed for Wheezing/Shortness of Breath. REVIEW OF SYSTEMS: Review of Systems Constitutional: Positive for malaise/fatigue. Negative for chills, fever and weight loss. HENT: Negative for hearing loss and sore throat. Eyes: Negative for blurred vision and double vision. Respiratory: Positive for shortness of breath. Cardiovascular: Negative. Gastrointestinal: Negative. Genitourinary: Negative for dysuria, frequency, hematuria and urgency. Musculoskeletal: Positive for back pain, joint pain and myalgias. Skin: Negative. Neurological: Negative for dizziness, seizures, loss of consciousness, weakness and headaches. Endo/Heme/Allergies: Negative for environmental allergies. Does not bruise/bleed easily. Psychiatric/Behavioral: Negative for depression. PHYSICAL EXAMINATION: BP 148/72 Pulse 95 Wt 175 lb (79.4kg) SpO2 99[on O2 at 3L pulse]% General: Pleasant gentleman sitting appears comfortable no apparent distress alert and oriented x3 HEENT: Carotid upstrokes are brisk bilaterally without bruits. No JVD appreciated. Pulmonary: Diminished breath sounds noted throughout. No rales, wheezes, rhonchi Cardiovascular: Normal S1, S2 with a regularly irregular pulse and normal rate.. No murmurs, rubs, or gallops Extremities: Warm, well-perfused, no lower extremity edema. 2+ radial pulses CARDIOVASCULAR MEDICINE TESTING: ECG in the office April 29, 2021: Normal sinus rhythm with frequent PVCs. Possible left atrial enlargement. CORONARY ANGIOGRAPHY 03/14/15 LM: 10-20% ostial stenosis proximal to the stent which is widely patent and extends into the LAD. LAD: Moderate sized vessel which gives a small first diagonal branch and larger second diagonal branch. There is diffuse 10-20% stenosis in the proximal vessel. The distal vessel is of smaller caliper but has no significant stenosis. The first diagonal branch has mild narrowing at its ostium but is a tiny vessel. The larger second diagonal branch is normal. LCX: Non-dominant vessel which gives a tiny first marginal branch and large second bifurcating marginal branch. There is 70-80% diffuse stenosis in the proximal vessel and a second 60-70% stenosis atthe bifurction on the OM2. The OM2 fills competitively from the [place] LCX and the SVG. RCA: Dominant vessel which is stented from the proximal-distal portion. There is 20-30% diffuse ISRwith 50-60% ISR in the mid vessel. The LAD has mild diffuse stenoses with a diiscreet 30-40% lesiondistally. SVG-OM: Patent with 40-50% stenosis in an area of some mild toruosity. FFR was performed of the mid RCA lesion and was 0.87. ASSESSMENT Severe single vessel coronary artery disease of the left circumflex artery with a patent bypass graft to the OM. Moderate right coronary artery disease which was not hemodynamically significant by FFR. Regadenoson Myoview Stress 04/24/2022 CONCLUSIONS: 1. SPECT Perfusion Study: Abnormal. 2. There is mild (<10%) ischemia in the territory of the RCA. 3. There is a small (<10%) fixed perfusion defect in the RCA territory. 4. Left ventricle is normal in size. The left ventricle systolic function is mildly decreased. 5. Right ventricle is normal in size. The right ventricle systolic function is normal. 6. This is an intermediate risk scan due to area of scar/ischemia. Gated Stress IR:3D LVEF % 50 PVR 12/18/2020: IMPRESSION Compared to prior study of 12/16/2019, appears no significant change in waveforms at ankle. Non compressible arteries. RIGHT SIDE Resting right ankle brachial index: 1.93 Non-compressible arteries, TRAE not accurate. Right toe brachial index: 0.60 Non-compressible vessels, results called by PVR tracings. Abnormal toe brachial index at rest is evidence of peripheral artery disease. Right ankle: Moderate disease at rest. LEFT SIDE Resting left ankle brachial index: 1.93 Non-compressible arteries, TRAE not accurate. Left toe brachial index: 0.61 Non-compressible vessels, results called by PVR tracings. Abnormal toe brachial index at rest is evidence of peripheral artery disease. Left ankle: Moderate disease at rest. PVR 12/16/19: IMPRESSION RIGHT SIDE Resting right ankle brachial index: 1.21 Partially non-compressible arteries, TRAE not accurate. Right toe brachial index: 0.43 Non-compressible vessels, results called by PVR tracings. Abnormal toe brachial index at rest is evidence of peripheral artery disease. Right ankle: Moderate disease at rest. Aortic or bilateral iliofemoral disease. LEFT SIDE Resting left ankle brachial index: 2.20 Non-compressible arteries, TRAE not accurate. Left toe brachial index: 0.60 Non-compressible vessels, results called by PVR tracings. Abnormal toe brachial index at rest is evidence of peripheral artery disease. Left ankle: Moderate disease at rest. Aortic or bilateral iliofemoral disease. ECG in the office 10/15/2020: Sinus rhythm with occasional PVCs. Normal axis and intervals. No significant ST or T wave changes IMPRESSION: Mr. Corley is a 81 year old gentleman with known coronary artery disease prior coronary bypass grafting in 1999, COLEMAN-LAD, FRANCIA-RCA, SVG-left circumflex/OM). On cardiac catheterization 2012 at which time he was found to have occlusion of the COLEMAN and FRANCIA grafts. He underwent stenting of the left main coronary artery. Most recent cardiac catheterization 2016 as noted above. He is also treated forhypertension, dyslipidemia, and COPD. He has a history of small cell lung cancer and is status postleft lower lobe wedge resection and radiation therapy. He presents the office for routine follow-up. PLAN AND RECOMMENDATIONS: 1. Coronary artery disease involving [place] coronary artery of [place] heart without angina pectoris- ICD9: 414.01, ICD10: I25.10 (primary diagnosis) Doing well without symptoms concerning for angina. Recent low risk stress test - ATORVASTATIN 20 MG TABLET 2. Essential hypertension - ICD9: 401.9, ICD10: I10 Well-controlled on current regimen 3. Hyperlipidemia, mixed - ICD9: 272.2, ICD10: E78.2 Patient states he has been taking his Lipitor as prescribed. Although, it was not on his medicationlist. I refilled his a atorvastatin 20 mg daily. Repeat fasting blood work in 3 to 4 months - ATORVASTATIN 20 MG TABLET 4. PAD (peripheral artery disease) (HCC) - ICD9: 443.9, ICD10: I73.9 5. Abdominal aortic aneurysm (AAA) without rupture, unspecified part (HCC) - ICD9: 441.4, ICD10: I71.40 6. Pre-operative cardiovascular examination - ICD9: V72.81, ICD10: Z01.810 Patient is at low cardiac risk for planned moderate risk procedure. Bela Manzano MD documented [facility] History of Present illness Narrative* Rebecca Granados - 05/01/2022 1:46 PM EST . documented in this [facility]03-01-2023 Instructions* Patient Instructions* Juan Carlos Viveros - 04/30/2022 2:56 PM EST Continue with santyl documented in this [facility]03-01-2023 History of Present illness Narrative* Juan Carlos Viveros - 04/30/2022 2:48 PM EST Images from the original note were not included. FOLLOW UP PODIATRIC OFFICE VISIT Chief Complaint: This 81 year old who presents for follow up:ulceration of right foot Patient presents to clinic for follow-up right foot ulceration Patient is currently using santyl twice daily He is scheduled for vascular intervention next Thursday He has no other complaints. PAIN EVALUATION 04/23/2022 1021 Pain Level: 5 Pain Location: Heel-Right Description: Burning;Sharp Duration Amount of Time: 24 Duration Units: Months Frequency: Continuous Intervention/Comfort measure: Medication Comments: Tylenol helps a little Hemoglobin A1C Date Value Ref Range Status 01/04/2018 5.5 4.3 - 5.6 % Final PCP: Mei Cummins MD PAST MEDICAL HISTORY Diagnosis Date Abdominal aortic aneurysm (AAA) without rupture ([facility]) 11/19/2018 Atypical chest pain CAD (coronary artery disease) s/p CABG 1999, PCI w/ stents COPD (chronic obstructive pulmonary disease) (HCC) Diabetic ulcer of right foot (HCC) 04/30/2022 Hyperlipidemia Hyperlipidemia Hypertension Prostate cancer (HCC) Dx Dec 2014, s/p radiation, on hormonal therapy Current Outpatient Medications Medication Sig acetaminophen 325 mg cap Take 650 mg by mouth. LORazepam (ATIVAN) 1 mg tablet Take 1 tablet by mouth three times daily for 90 days. oxyCODONE IR (ROXICODONE) 5 mg immediate release tablet TAKE 1/2 TABLET BY MOUTH 4 TIMES DAILY NEEDED FOR SHORTNESS OF BREATH budesonide-formoterol (SYMBICORT) 160-4.5 mcg/actuation inhaler Inhale 2 Puffs as instructed twice daily. clopidogrel (PLAVIX) 75 mg tablet Take 1 tablet by mouth once daily. tamsulosin (FLOMAX) 0.4 mg Take 0.4 mg by mouth once daily. predniSONE (DELTASONE) 10 mg tablet Take 10 mg by mouth once daily. guaiFENesin (MUCINEX) 600 mg 12 hr tablet Take 2 tablets by mouth twice daily. nitroglycerin sublingual (NITROSTAT) 0.4 mg SL tablet Dissolve 1 tablet under the tongue every 5 minutes as needed. DULoxetine (CYMBALTA) 30 mg capsule 1 capsule once daily. ondansetron (ZOFRAN) 4 mg tablet 1 tablet as needed. aspirin, enteric coated (ASPIRIN, ENTERIC COATED) 81 mg EC tablet Take 81 mg by mouth once daily. DULERA 200-5 mcg/actuation inhaler Take 2 Puffs by mouth twice daily. tiotropium (SPIRIVA WITH HANDIHALER) 18 mcg inhalation capsule Inhale 1 capsule as instructed once daily. Use with handihaler. albuterol HFA (PROAIR HFA) 90 mcg/actuation inhaler Inhale 2 Puffs as instructed every 4 hours as needed for Wheezing/Shortness of Breath. No current facility-administered medications for this visit. ALLERGIES Allergen Reactions Imdur [Isosorbide M* Hives Black out and dizziness PAST SURGICAL HISTORY Procedure Laterality Date ANGIOGRAM EXTREMITY LUNG BIOPSY Left needle biopsy LUNG SURGERY HX 02/20/20 lt lung nodule removed PAST SURGICAL HISTORY OF TURP PAST SURGICAL HISTORY OF 03/02/1999 triple bypass Physical Exam: OBJECTIVE: Constitutional: Pt is a well developed 81 year old male who is alert, oriented, cooperative and in no apparent distress. Eyes: Following during examination. No redness or drainage. Respiratory: RR normal and nonlabored. Even breathing. No evidence of distress. Psychology: Patient is engaged during conversation. Normal affect and mood. Does not appear depressed or anxious. NVSI unchanged from previous visit. Dermatological: Ulceration #1 Location: right medial heel Measurement: 1.2 cm x 2.1 cm x 0.2 cm Base: fibrotic with increased granulatoin tissue. No exposed bone or tendon. No signs of infection. Right lateral heel wound remains healed Thicker skin noted along right 1st metatarsal Lateral right heel remains healed ASSESSMENT: (E11.621, L97.412) 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, with fat layer exposed ([facility]) (primary encounter diagnosis) (I73.9) Peripheral arterial disease ([facility]) (E11.621, L97.409) Controlled type 2 diabetes mellitus with ulcer of heel ([facility]) PLAN: Wound of right medial heel is slight smaller from a width stand point but slightly larger from a length standpoint. The wound has increased granulation tissue but still rather significant amount of fibrotic slough. Will benefit from sharp debridement once cleared by vascular. Will plan for sharp debridement once vsacular status restored to lower extremity. Will plan for weekly debridement and possible skin grafting if and when appropriate. Will continue with santyl to right heel ulceration. Continue with offloading while in bed and usingsurgical shoe Continue with lotion to feet as the feet does appear ot be more dry. Follow-up in 2 weeks and anticipate debridement if cleared by vascular surgery. He does have very small callus of right 1st metatarsal that he treats with filing. I offered debridement today but he declined. Juan Carlos Viveros DPM * Yina Stringer RN - 04/30/2022 2:28 PM EST AMB ROOMING INTAKE FLOWSHEET DATA Pain Pain Level: 5 Pain Location: Heel-Right Description: Burning, Sharp Duration Amount of Time: 24 Duration Units: Months Frequency: Continuous Intervention/Comfort measure: Medication Comments: Tylenol helps a little Patient presents with: Right Foot - Established Patient, Follow Up, Ulcer Patient presents for Right heel ulcer 2 week follow up. Patient states that it seems to be getting a bit larger. Patient has been wearing his post op boot and doing his dressing changes. documented in this encounter[facility] History of Past illness Narrative* Problem Noted Date Diagnosed Date Resolved Date Diabetic ulcer of right foot 04/30/2022 10/13/2022 Last Assessment & Plan: Assessment: following podiatry ASCVD (arteriosclerotic card iovascular disease) 11/20/2016 09/05/2019 documented as of this encounter (statuses as of 10/13/2022) [facility] of Past illness Narrative* Problem Noted Date Diagnosed Date Resolved Date Diabetic ulcer of right foot 04/30/2022 10/13/2022 Last Assessment & Plan: Assessment: following podiatry ASCVD (arteriosclerotic card iovascular disease) 11/20/2016 09/05/2019 documented as of this encounter (statuses as of 10/14/2022) [facility] of Past illness Narrative* Problem Noted Date Diagnosed Date Resolved Date Diabetic ulcer of right foot 04/30/2022 10/13/2022 Last Assessment & Plan: Assessment: following podiatry ASCVD (arteriosclerotic card iovascular disease) 11/20/2016 09/05/2019 documented as of this encounter (statuses as of 10/22/2022) [address]01-2023 History of Past illness Narrative* Problem Noted Date Diagnosed Date Resolved Date Diabetic ulcer of right foot 04/30/2022 10/13/2022 Last Assessment & Plan: Assessment: following podiatry ASCVD (arteriosclerotic card iovascular disease) 11/20/2016 09/05/2019 documented as of this encounter (statuses as of 10/24/2022) [address]2023 History of Past illness Narrative* Problem Noted Date Diagnosed Date Resolved Date Diabetic ulcer of right foot 04/30/2022 10/13/2022 Last Assessment & Plan: Assessment: following podiatry ASCVD (arteriosclerotic card iovascular disease) 11/20/2016 09/05/2019 documented as of this encounter (statuses as of 11/06/2022) [facility] Past illness Narrative* Problem Noted Date Diagnosed Date Resolved Date Diabetic ulcer of right foot 04/30/2022 10/13/2022 Last Assessment & Plan: Assessment: following podiatry ASCVD (arteriosclerotic card iovascular disease) 11/20/2016 09/05/2019 documented as of this encounter (statuses as of 11/07/2022) [facility] Past illness Narrative* Problem Noted Date Diagnosed Date Resolved Date Diabetic ulcer of right foot 04/30/2022 10/13/2022 Last Assessment & Plan: Assessment: following podiatry ASCVD (arteriosclerotic card iovascular disease) 11/20/2016 09/05/2019 documented as of this encounter (statuses as of 11/17/2022) [facility] Past illness Narrative* Problem Noted Date Diagnosed Date Resolved Date Diabetic ulcer of right foot 04/30/2022 10/13/2022 Last Assessment & Plan: Assessment: following podiatry ASCVD (arteriosclerotic card iovascular disease) 11/20/2016 09/05/2019 documented as of this encounter (statuses as of 11/19/2022) [facility] illness Narrative* Problem Noted Date Diagnosed Date Resolved Date Diabetic ulcer of right foot 04/30/2022 10/13/2022 Last Assessment & Plan: Assessment: following podiatry ASCVD (arteriosclerotic card iovascular disease) 11/20/2016 09/05/2019 documented as of this encounter (statuses as of 11/24/2022) [facility] Past illness Narrative* Problem Noted Date Diagnosed Date Resolved Date Diabetic ulcer of right foot 04/30/2022 10/13/2022 Last Assessment & Plan: Assessment: following podiatry ASCVD (arteriosclerotic card iovascular disease) 11/20/2016 09/05/2019 documented as of this encounter (statuses as of 12/19/2022) [facility] illness Narrative* Problem Noted Date Diagnosed Date Resolved Date Diabetic ulcer of right foot 04/30/2022 10/13/2022 Last Assessment & Plan: Assessment: following podiatry ASCVD (arteriosclerotic card iovascular disease) 11/20/2016 09/05/2019 documented as of this encounter (statuses as of 01/03/2023) [facility] Narrative* Problem Noted Date Diagnosed Date Resolved Date Diabetic ulcer of right foot 04/30/2022 10/13/2022 Last Assessment & Plan: Assessment: following podiatry ASCVD (arteriosclerotic card iovascular disease) 11/20/2016 09/05/2019 documented as of this encounter (statuses as of 01/04/2023) [facility] Narrative* Problem Noted Date Diagnosed Date Resolved Date Diabetic ulcer of right foot 04/30/2022 10/13/2022 Last Assessment & Plan: Assessment: following podiatry ASCVD (arteriosclerotic card iovascular disease) 11/20/2016 09/05/2019 documented as of this encounter (statuses as of 01/04/2023) [facility] Narrative* Problem Noted Date Diagnosed Date Resolved Date Diabetic ulcer of right foot 04/30/2022 10/13/2022 Last Assessment & Plan: Assessment: following podiatry ASCVD (arteriosclerotic card iovascular disease) 11/20/2016 09/05/2019 documented as of this encounter (statuses as of 01/04/2023) [facility] Narrative* Problem Noted Date Diagnosed Date Resolved Date Diabetic ulcer of right foot 04/30/2022 10/13/2022 Last Assessment & Plan: Assessment: following podiatry ASCVD (arteriosclerotic card iovascular disease) 11/20/2016 09/05/2019 documented as of this encounter (statuses as of 01/04/2023) [facility] Narrative* Problem Noted Date Diagnosed Date Resolved Date Diabetic ulcer of right foot 04/30/2022 10/13/2022 Last Assessment & Plan: Assessment: following podiatry ASCVD (arteriosclerotic card iovascular disease) 11/20/2016 09/05/2019 documented as of this encounter (statuses as of 01/21/2023) [facility] Narrative* Problem Noted Date Diagnosed Date Resolved Date Diabetic ulcer of right foot 04/30/2022 10/13/2022 Last Assessment & Plan: Assessment: following podiatry ASCVD (arteriosclerotic card iovascular disease) 11/20/2016 09/05/2019 documented as of this encounter (statuses as of 02/14/2023) [facility] Narrative* Problem Noted Date Diagnosed Date Resolved Date Diabetic ulcer of right foot 04/30/2022 10/13/2022 Last Assessment & Plan: Assessment: following podiatry ASCVD (arteriosclerotic card iovascular disease) 11/20/2016 09/05/2019 documented as of this encounter (statuses as of 04/09/2023) [facility] Narrative* Problem Noted Date Diagnosed Date Resolved Date Diabetic ulcer of right foot 04/30/2022 10/13/2022 Last Assessment & Plan: Assessment: following podiatry ASCVD (arteriosclerotic card iovascular disease) 11/20/2016 09/05/2019 documented as of this encounter (statuses as of 04/09/2023) [facility] Narrative* Problem Noted Date Diagnosed Date Resolved Date Diabetic ulcer of right foot 04/30/2022 10/13/2022 Last Assessment & Plan: Assessment: following podiatry ASCVD (arteriosclerotic card iovascular disease) 11/20/2016 09/05/2019 documented as of this encounter (statuses as of 04/15/2023) [facility] Narrative* Problem Noted Date Diagnosed Date Resolved Date Diabetic ulcer of right foot 04/30/2022 10/13/2022 Last Assessment & Plan: Assessment: following podiatry ASCVD (arteriosclerotic card iovascular disease) 11/20/2016 09/05/2019 documented as of this encounter (statuses as of 04/15/2023) [facility] Narrative* Problem Noted Date Diagnosed Date Resolved Date Diabetic ulcer of right foot 04/30/2022 10/13/2022 Last Assessment & Plan: Assessment: following podiatry ASCVD (arteriosclerotic card iovascular disease) 11/20/2016 09/05/2019 documented as of this encounter (statuses as of 04/21/2023) [facility] Narrative* Problem Noted Date Diagnosed Date Resolved Date Diabetic ulcer of right foot 04/30/2022 10/13/2022 Last Assessment & Plan: Assessment: following podiatry ASCVD (arteriosclerotic card iovascular disease) 11/20/2016 09/05/2019 documented as of this encounter (statuses as of 04/23/2023) [facility] Narrative* Problem Noted Date Diagnosed Date Resolved Date Diabetic ulcer of right foot 04/30/2022 10/13/2022 Last Assessment & Plan: Assessment: following podiatry ASCVD (arteriosclerotic card iovascular disease) 11/20/2016 09/05/2019 documented as of this encounter (statuses as of 05/13/2023) [facility] Narrative* Problem Noted Date Diagnosed Date Resolved Date Diabetic ulcer of right foot 04/30/2022 10/13/2022 Last Assessment & Plan: Assessment: following podiatry ASCVD (arteriosclerotic card iovascular disease) 11/20/2016 09/05/2019 documented as of this encounter (statuses as of 05/19/2023) [facility] Narrative* Problem Noted Date Diagnosed Date Resolved Date Diabetic ulcer of right foot 04/30/2022 10/13/2022 Last Assessment & Plan: Assessment: following podiatry ASCVD (arteriosclerotic card iovascular disease) 11/20/2016 09/05/2019 documented as of this encounter (statuses as of 05/19/2023) [facility] Narrative* Problem Noted Date Diagnosed Date Resolved Date Diabetic ulcer of right foot 04/30/2022 10/13/2022 Last Assessment & Plan: Assessment: following podiatry ASCVD (arteriosclerotic card iovascular disease) 11/20/2016 09/05/2019 documented as of this encounter (statuses as of 05/22/2023) [facility] Narrative* Problem Noted Date Diagnosed Date Resolved Date Diabetic ulcer of right foot 04/30/2022 10/13/2022 Last Assessment & Plan: Assessment: following podiatry ASCVD (arteriosclerotic card iovascular disease) 11/20/2016 09/05/2019 documented as of this encounter (statuses as of 05/25/2023) [facility] Narrative* Problem Noted Date Diagnosed Date Resolved Date Diabetic ulcer of right foot 04/30/2022 10/13/2022 Last Assessment & Plan: Assessment: following podiatry ASCVD (arteriosclerotic card iovascular disease) 11/20/2016 09/05/2019 documented as of this encounter (statuses as of 06/03/2023) [facility] Narrative* Problem Noted Date Diagnosed Date Resolved Date Diabetic ulcer of right foot 04/30/2022 10/13/2022 Last Assessment & Plan: Assessment: following podiatry ASCVD (arteriosclerotic card iovascular disease) 11/20/2016 09/05/2019 documented as of this encounter (statuses as of 06/08/2023) [facility] Narrative* Problem Noted Date Diagnosed Date Resolved Date Diabetic ulcer of right foot 04/30/2022 10/13/2022 Last Assessment & Plan: Assessment: following podiatry ASCVD (arteriosclerotic card iovascular disease) 11/20/2016 09/05/2019 documented as of this encounter (statuses as of 06/10/2023) [facility] Narrative* Problem Noted Date Diagnosed Date Resolved Date Diabetic ulcer of right foot 04/30/2022 10/13/2022 Last Assessment & Plan: Assessment: following podiatry ASCVD (arteriosclerotic card iovascular disease) 11/20/2016 09/05/2019 documented as of this encounter (statuses as of 06/12/2023) [facility] Narrative* Problem Noted Date Diagnosed Date Resolved Date Diabetic ulcer of right foot 04/30/2022 10/13/2022 Last Assessment & Plan: Assessment: following podiatry ASCVD (arteriosclerotic card iovascular disease) 11/20/2016 09/05/2019 documented as of this encounter (statuses as of 06/15/2023) [facility] Narrative* Problem Noted Date Diagnosed Date Resolved Date Diabetic ulcer of right foot 04/30/2022 10/13/2022 Last Assessment & Plan: Assessment: following podiatry ASCVD (arteriosclerotic card iovascular disease) 11/20/2016 09/05/2019 documented as of this encounter (statuses as of 06/18/2023) [facility] Narrative* Problem Noted Date Diagnosed Date Resolved Date Diabetic ulcer of right foot 04/30/2022 10/13/2022 Last Assessment & Plan: Assessment: following podiatry ASCVD (arteriosclerotic card iovascular disease) 11/20/2016 09/05/2019 documented as of this encounter (statuses as of 06/19/2023) [facility] Miscellaneous Notes* Telephone Encounter - Krystal Michel APRN.LEGAL STENOGRAPHER - 04/30/2022 1:30 PM EST I understand Dr. Manzano already gave pt cardiac clearance 04/11/2022 but he has now had updated testing. See below. Does he still have cardiac clearance or does he need seen for the abnormal stress test? I don't see where this has been addressed either way by cardiology since testing was completed. 04/24/2022 Stress/Echo CONCLUSIONS: 1. SPECT Perfusion Study: Abnormal. 2. There is mild (<10%) ischemia in the territory of the RCA. 3. There is a small (<10%) fixed perfusion defect in the RCA territory. 4. Left ventricle is normal in size. The left ventricle systolic function is mildly decreased. 5. Right ventricle is normal in size. The right ventricle systolic function is normal. 6. This is an intermediate risk scan due to area of scar/ischemia. Gated Stress IR:3D LVEF % 50 CONCLUSIONS: - Technically difficult exam due to body habitus. - Exam indication: Hypertension - The left ventricle is normal in size. There is moderate left ventricular hypertrophy. Left ventricular systolic function is normal. EF = 56 5% (2D biplane) Definity contrast used for endocardial border detection. Grade I left ventricular diastolic dysfunction. - The right ventricle is normal in size. Right ventricular systolic function is normal. - The visualized aorta is borderline dilated with a maximal dimension of 3.9 cm. - Mild 1+ mitral regurgitation. - Mild to moderate (1-2+) aortic regurgitation. - Estimated right ventricular systolic pressure is 33 mmHg consistent with normal pulmonary artery pressures. Estimated right atrial pressure is 8 mmHg based on IVC assessment. - Exam was compared with the prior echocardiographic exam performed on 09/23/10. The mitral regurgitation and the aortic regurgitation have increased. * Telephone Encounter - Sunshine Rogers RN - 04/15/2022 4:03 PM EST Images from the original note were not included. Call to Dr. Rivas office. Pt needs to be seen and have cardiac testing done per Dr. Rivas preference in order to proceed with vascular surgery. Call to pt and spouse, scheduled for 05/[address] Manzano in [place]. Tyrell Ibarra 8 minutes ago (3:49 PM) KP See letter encounter from today from vascular. I work in pulmonology, just intercepted the phone call and trying to help out the patient. Kelly Lamar LPN 16 minutes ago (3:41 PM) NT Cardiac clearance was signed by Dr. Manzano on 04/11/2022 and faxed. Thanks.Kelly Ibarra * Telephone Encounter - Tyrell Lamar LPN - 04/15/2022 2:29 PM EST Patient's spouse calling and states vascular would like a cardiac risk evaluation appt with LEGAL STENOGRAPHER as soon as possible prior to surgery. While they would prefer to stay in [place], they would be willing to come to [facility] if they could obtain a late morning/early afternoon appt. Please advise. Tyrell Lamar LPN documented in this encounter[facility] Instructions* Patient Instructions* Juan Carlos Viveros - 04/16/2022 2:55 PM EST Continue with santyl to right heel ulceration Continue with offloading of ulceration documented in this encounterProm[facility] History of Present illness Narrative* Juan Carlos Viveros - 04/16/2022 2:54 PM EST FOLLOW UP PODIATRIC OFFICE VISIT Chief Complaint: This 81 year old who presents for follow up:right medial heel ulceration Patient presents to clinic for follow-up right medial heel ulceration Patient is currently applying santyl to right heel and wearing his surgical shoe He uses pillow to offlad the right heel while in bed but recently, he is sleeping in recliner. He is still going thru preliminary work-up for vascular intervention. PAIN EVALUATION 04/16/2022 1440 Pain Level: 3 Pain Location: Heel-Right Hemoglobin A1C Date Value Ref Range Status 01/04/2018 5.5 4.3 - 5.6 % Final PCP: Mei Cummins MD PAST MEDICAL HISTORY Diagnosis Date Abdominal aortic aneurysm (AAA) without rupture 11/19/2018 Atypical chest pain CAD (coronary artery disease) s/p CABG 1999, PCI w/ stents COPD (chronic obstructive pulmonary disease) (HCC) Hyperlipidemia Hyperlipidemia Hypertension Prostate cancer (HCC) Dx Dec 2014, s/p radiation, on hormonal therapy Current Outpatient Medications Medication Sig acetaminophen 325 mg cap Take 650 mg by mouth. cephALEXin (KEFLEX) 500 mg capsule Take 1 capsule by mouth three times daily. LORazepam (ATIVAN) 1 mg tablet Take 1 tablet by mouth three times daily for 90 days. oxyCODONE IR (ROXICODONE) 5 mg immediate release tablet TAKE 1/2 TABLET BY MOUTH 4 TIMES DAILY NEEDED FOR SHORTNESS OF BREATH gabapentin (NEURONTIN) 100 mg capsule Take 1 capsule by mouth three times daily for 90 days. budesonide-formoterol (SYMBICORT) 160-4.5 mcg/actuation inhaler Inhale 2 Puffs as instructed twice daily. clopidogrel (PLAVIX) 75 mg tablet Take 1 tablet by mouth once daily. tamsulosin (FLOMAX) 0.4 mg Take 0.4 mg by mouth once daily. predniSONE (DELTASONE) 10 mg tablet Take 10 mg by mouth once daily. guaiFENesin (MUCINEX) 600 mg 12 hr tablet Take 2 tablets by mouth twice daily. nitroglycerin sublingual (NITROSTAT) 0.4 mg SL tablet Dissolve 1 tablet under the tongue every 5 minutes as needed. DULoxetine (CYMBALTA) 30 mg capsule 1 capsule once daily. ondansetron (ZOFRAN) 4 mg tablet 1 tablet as needed. aspirin, enteric coated (ASPIRIN, ENTERIC COATED) 81 mg EC tablet Take 81 mg by mouth once daily. DULERA 200-5 mcg/actuation inhaler Take 2 Puffs by mouth twice daily. tiotropium (SPIRIVA WITH HANDIHALER) 18 mcg inhalation capsule Inhale 1 capsule as instructed once daily. Use with handihaler. albuterol HFA (PROAIR HFA) 90 mcg/actuation inhaler Inhale 2 Puffs as instructed every 4 hours as needed for Wheezing/Shortness of Breath. Current Facility-Administered Medications Medication Dose Route Frequency perflutren lipid microspheres 1.3 mL in NaCl (PF) 0.9% 10 mL injection (DEFINITY) INTRAVENOUS DIRECTED PRN sodium chloride 0.9 % (flush) 10 mL (BD POSIFLUSH) 10 mL INTRAVENOUS DIRECTED PRN ALLERGIES Allergen Reactions Imdur [Isosorbide M* Hives Black out and dizziness PAST SURGICAL HISTORY Procedure Laterality Date LUNG BIOPSY Left needle biopsy LUNG SURGERY HX 02/20/20 lt lung nodule removed PAST SURGICAL HISTORY OF TURP PAST SURGICAL HISTORY OF 03/02/1999 triple bypass Physical Exam: OBJECTIVE: Constitutional: Pt is a well developed 81 year old male who is alert, oriented, cooperative and in no apparent distress. Eyes: Following during examination. No redness or drainage. Respiratory: RR normal and nonlabored. Even breathing. No evidence of distress. Psychology: Patient is engaged during conversation. Normal affect and mood. Does not appear depressed or anxious. NVSI unchanged from previous visit. Dermatological: Ulceration #1 Location: right medial heel Measurement: 1.9 cm x 1.5 cm x 0.2 cm Base: fibrotic. No exposed bone or tendon. No signs of infection. Musculoskeletal/Orthopaedic: Patient has pain to palpation of right heel at ulceration. 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 Continue with santyl and surgical shoe and offloading while in bed. Discussed use of rooke boot vs using pillow to offload heel. Await debridment untl cleared by vascular surgery to do so Ulcer appears stable. Follow up in 2 weeks Repeat xrays in 2 weeks Juan Carlos Viveros DPM 1.9 x 1.5 cm x 0.2 cm * Yina Stringer RN - 04/16/2022 2:40 PM EST AMB ROOMING INTAKE FLOWSHEET DATA Pain Pain Level: 3 Pain Location: Heel-Right Patient presents with: Right Foot - Established Patient, Follow Up, Pain, Ulcer Patient presents for follow up of ulcer of right heel. Patient states that medial ulcer seems to begetting larger. Lateral ulcer is small and appears to be healing. documented in this encounterPromed[facility]02-15-2023 Miscellaneous Notes* Telephone Encounter - Jocelin Flores - 04/16/2022 10:41 AM EST Orders have been placed for patient to have stress and echo testing done. Patient scheduled for 04/23/22. Encounter closed. * Telephone Encounter - Jocelin Flores - 04/15/2022 4:01 PM EST Spoke to Wendy in Dr. Lion office who said he has already signed off on the clearance as moderate risk and there is no reason for him to be seen for a surgery risk assessment. * Telephone Encounter - Jocelin Flores - 04/15/2022 2:16 PM EST Faxed cardiac risk evaluation request to Dr. Manzano office [phone]. requesting patient to be seen for cardiac risk evaluation and recommendations to reduce potential risks for surgery. Spoke to spouse to advise they will be getting a call from cariology office or they can call to make an apt with [facility] to get cardiac risk evaluation. Per spouse she will keep us in the loop once they get a appointment. * Telephone Encounter - Alethea Childress - 04/10/2022 8:54 AM EST Please advise what testing you would like to get on patient. We will call to schedule Thank you * Telephone Encounter - Alethea Childress - 04/08/2022 2:20 PM EST Patient and calling to see if any cardiac clearance has been received. Clearance form receivedand placed on desk for review. Will contact them with an update once reviewed and discussed with provider. documented in this encounterPromedica [facility]02-03-2023 Miscellaneous Notes* Telephone Encounter - Alethea Childress - 04/04/2022 1:08 PM EST Patients calling back regarding update on cardiac clearance. Please advise * Telephone Encounter - Flor Duron RN - 04/01/2022 12:54 PM EST Cardiac clearance form faxed to office attn Dr. Manzano. Please fill out and send to fax number on form. Thank you. Flor Duron RN * Telephone Encounter - Faustina Rosen RN - 04/01/2022 12:20 PM EST Alethea from Dr. Alex Rivas office called. A cardiac clearance form was faxed to the office on Monday, March 28, 2022, requesting clearance for Oswaldo to undergo a vascular procedure. Alethea is asking about the status of the form. Alethea can be reached at [phone]-this is her direct dial phone number. Faustina Rosen RN documented in this encounterPromedica [facility] Hospital01-31-2023 Instructions* Patient Instructions* uJan Carlos Viveros - 04/01/2022 11:19 AM EST Continue with santyl to right inside wound. Await clearance for debridement Continue with betadine to outside wound Continue with post-op shoe documented in this encounterPromedica [facility] Hospital01-31-2023 History of Present illness Narrative* Juan Carlos Rajendra - 04/01/2022 11:07 AM EST FOLLOW UP PODIATRIC OFFICE VISIT Chief Complaint: This 81 year old who presents for follow up:right medial heel ulceration Patient presents to clinic for followup right medial heel ulceration. He is currently using santyl to the right medial heel He is here for follow-up lateral heel ulceration. He is currently applying betadine to the ulceration. He has completed his antibiotic. He denies any drainage. PAIN EVALUATION No data found in the last 1 encounters. Hemoglobin A1C Date Value Ref Range Status 01/04/2018 5.5 4.3 - 5.6 % Final PCP: Mei Cummins MD PAST MEDICAL HISTORY Diagnosis Date Abdominal aortic aneurysm (AAA) without rupture 11/19/2018 Atypical chest pain CAD (coronary artery disease) s/p CABG 1999, PCI w/ stents COPD (chronic obstructive pulmonary disease) (HCC) Hyperlipidemia Hyperlipidemia Hypertension Prostate cancer (HCC) Dx Dec 2014, s/p radiation, on hormonal therapy Current Outpatient Medications Medication Sig acetaminophen 325 mg cap Take 650 mg by mouth. cephALEXin (KEFLEX) 500 mg capsule Take 1 capsule by mouth three times daily. LORazepam (ATIVAN) 1 mg tablet Take 1 tablet by mouth three times daily for 90 days. oxyCODONE IR (ROXICODONE) 5 mg immediate release tablet TAKE 1/2 TABLET BY MOUTH 4 TIMES DAILY NEEDED FOR SHORTNESS OF BREATH budesonide-formoterol (SYMBICORT) 160-4.5 mcg/actuation inhaler Inhale 2 Puffs as instructed twice daily. clopidogrel (PLAVIX) 75 mg tablet Take 1 tablet by mouth once daily. tamsulosin (FLOMAX) 0.4 mg Take 0.4 mg by mouth once daily. predniSONE (DELTASONE) 10 mg tablet Take 10 mg by mouth once daily. guaiFENesin (MUCINEX) 600 mg 12 hr tablet Take 2 tablets by mouth twice daily. nitroglycerin sublingual (NITROSTAT) 0.4 mg SL tablet Dissolve 1 tablet under the tongue every 5 minutes as needed. DULoxetine (CYMBALTA) 30 mg capsule 1 capsule once daily. ondansetron (ZOFRAN) 4 mg tablet 1 tablet as needed. aspirin, enteric coated (ASPIRIN, ENTERIC COATED) 81 mg EC tablet Take 81 mg by mouth once daily. DULERA 200-5 mcg/actuation inhaler Take 2 Puffs by mouth twice daily. tiotropium (SPIRIVA WITH HANDIHALER) 18 mcg inhalation capsule Inhale 1 capsule as instructed once daily. Use with handihaler. albuterol HFA (PROAIR HFA) 90 mcg/actuation inhaler Inhale 2 Puffs as instructed every 4 hours as needed for Wheezing/Shortness of Breath. gabapentin (NEURONTIN) 100 mg capsule Take 1 capsule by mouth three times daily for 90 days. No current facility-administered medications for this visit. ALLERGIES Allergen Reactions Imdur [Isosorbide M* Hives Black out and dizziness PAST SURGICAL HISTORY Procedure Laterality Date LUNG BIOPSY Left needle biopsy LUNG SURGERY HX 02/20/20 lt lung nodule removed PAST SURGICAL HISTORY OF TURP PAST SURGICAL HISTORY OF 03/02/1999 triple bypass Physical Exam: OBJECTIVE: Constitutional: Pt is a well developed 81 year old male who is alert, oriented, cooperative and in no apparent distress. Eyes: Following during examination. No redness or drainage. Respiratory: RR normal and nonlabored. Even breathing. No evidence of distress. Psychology: Patient is engaged during conversation. Normal affect and mood. Does not appear depressed or anxious. Vascular: DP and PT pulses are nonpalpable. CFT is delayed. Angio reviewed. Dermatological: Ulceration #1 Location: right medial heel Measurement: 1.5 cm x 2.0 cm x 1 mm Base: fibrotic No exposed tendon or bone. No local signs of infection Ulceration #2 Location: right lateral heel Measurment: 0 mm x 0 mm x 0 mm Base: healed. No signs of infection. Musculoskeletal/Orthopaedic: Patient has pain to palpation of right heel Xrays reviewed. 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 The ulceration does have less fibrotic slough compared to 2 weeks ago. I want him to continue with santyl. Will hold on any debridement until we are clearedby vascular to proceed I reviewed angio from March 28. Lateral heel ulceration is healed without signs of infection No need for additional antibiotic F/u in 2 weeks Juan Carlos Viveros DPM Surgery/Procedure Date: 03/28/2022 Incision/Procedure Start Time: 12:56 PM Incision Close/Procedure End Time: 2:17 PM Surgeon(s)/Proceduralist(s) and Mathematical Engineer(s): Surgeon(s) and Role: * Alex Rivas MD - Primary History: 81 year old male with rest pain and Right heel ulcer who presents for angiography with intervention. PROCEDURAL DETAILS Pre-Op/Pre-Procedure Diagnosis: atherosclerosis of the bilateral lower extremites with right rest pain and heel ulcer Post-Op/Post-Procedure Diagnosis: Same with aortoiliac occlusive disease, bilateral sfa chronic total occlusion INTERVENTIONAL PROCEDURE: Ultrasound-guided bilateral common femoral access Left common femoral artery catheterization and diagnostic angiography via left sheath- 75071 Aortic catheterization vie right common femoral artery -18306 Aortogram with right lower extremity angiogram 15542, 74620 Anesthesia: local with IV moderate concious sedation Estimated Blood Loss: 5 ml Specimens: None Implantable Devices: None Drains: None Complications: None PROCEDURAL DETAILS The patient was taken to the interventional procedure room and laid supine upon the table. A huddlewas performed with the surgery, anesthesia, and nursing teams to confirm patient name, medical record number, date of , allergies, and procedure. Under continuous oxygen and monitoring, IV analgesia and sedation were given. Bilateral groins were prepped and draped in the usual sterile fashion. Using ultrasound guidance, local anesthesia and micropuncture systems, left common femoral artery was accessed. This was exchanged for a 4 F sheath. We could not cross through a left external iliac artery occlusion. We ended up with a subintimal dissection trying to cross and this resulted in perforation through the occluded artery. This resolved without intervention. Using ultrasound guidance, local anesthesia and micropuncture systems, right common femoral artery was accessed. This was exchanged for a 4 F sheath. We crossed through a right external iliac artery stenosis. A universal flush catheter was used to perform an aortogram. Through the right sided sheath we performed a selected right lower extremity diagnostic angiogram. The bilateral groins was closed with manual pressure. The patient was taken to the PACU in stable condition. Findings: Aorta- abdominal aortic aneurysm, small, patent Right common iliac artery- patent Right external iliac artery- high grade stenosis Right common femoral artery- severe disease and high grade stenosis Right SFA- chronic total occlusion Right deep femoral artery- patent with disease at origin Right popliteal artery- patent p2, p3 Right leg and foot runoff- Main ro anterior tibial artery and peroneal. Posterior tibial is occluded proximally and reconstitutes by peroneal collateralls Left common iliac artery- patent Left external iliac artery- chronic total occlusion Left common femoral artery- severe disease Left SFA- chronic total occlusion Left deep femoral artery- patent Juan Carlos Viveros DPM * Selena Merlos RN - 04/01/2022 10:47 AM EST Patient presents with: Right Heel - Follow Up, Ulcer documented in this encounterPromedica [facility]01-27-2023 Miscellaneous Notes* Telephone Encounter - Alethea Childress - 03/28/2022 4:14 PM EST Pulmonary clearance form faxed to Dr. Calvillo at [phone] Transmission completed * Telephone Encounter - Alethea Childress - 03/28/2022 3:42 PM EST Cardiac clearance request Sent to 's office Faxed to [phone] Transmission completed documented in this encounterPromedica [facility] Hospital01-18-2023 History of Present illness Narrative* Catrachita Rogers, RT(R) - 03/19/2022 2:00 PM EST Radiology Service Progress Note PATIENT NAME: Oswaldo Corley DATE OF SERVICE: March 19, 2022 TIME: 2:08 PM PATIENT IDENTITY VERIFICATION COMPLETED USING TWO (2) IDENTIFIERS: Name and Date of confirmedby patient verbally. FALL SCREENING: Has the patient had 2 falls in the last year or 1 fall with injury or currently using an Ambulatory Assistive Device (Walker, Cane, Wheelchair, Crutches, etc.)? No PATIENT GENDER DATA: Male PATIENT RELEVANT IMPLANT DATA REVIEWED: Yes RADIOLOGY DEPARTMENT: General X-ray: Exam(s) Completed: Lower Extremity X- Ray(s): Foot, Right and Wt. Bearing PERIPHERAL IV DATA: Not applicable SIGNED BY: RT Lizeth(R) March 19, 2022 2:08 PM documented in this encounterPromedica [facility] Hospital01-18-2023 Instructions* Patient Instructions* Juan Carlos Viveros - 03/19/2022 1:25 PM EST Continue with santyl to larger ulceration. Continue with offloading of heels while in bed Continue with surgical shoe Continue with betadine to smaller ulceration Get xrays Take antibiotic as ordered documented in this encounterPromedica [facility]01-18-2023 History of Present illness Narrative* Juan Carlos Viveros - 03/19/2022 1:12 PM EST FOLLOW UP PODIATRIC OFFICE VISIT Chief Complaint: This 81 year old who presents for follow up:right heel ulceration Patient presents to clinic for follow-up right heel ulceration Patient continues to apply santyl to the right heel. He is scheduled to have vascular procedure this coming Thursday. PAIN EVALUATION 03/19/2022 1305 Pain Level: 9 Pain Location: Heel-Right Description: Aching;Stabbing Duration Amount of Time: 8 Duration Units: Weeks Frequency: Continuous Intervention/Comfort measure: Reposition;Relaxation;Medication Hemoglobin A1C Date Value Ref Range Status 01/04/2018 5.5 4.3 - 5.6 % Final PCP: Mei Cummins MD PAST MEDICAL HISTORY Diagnosis Date Abdominal aortic aneurysm (AAA) without rupture 11/19/2018 Atypical chest pain CAD (coronary artery disease) s/p CABG 1999, PCI w/ stents COPD (chronic obstructive pulmonary disease) (HCC) Hyperlipidemia Hyperlipidemia Hypertension Prostate cancer (HCC) Dx Dec 2014, s/p radiation, on hormonal therapy Current Outpatient Medications Medication Sig LORazepam (ATIVAN) 1 mg tablet Take 1 tablet by mouth three times daily for 90 days. oxyCODONE IR (ROXICODONE) 5 mg immediate release tablet TAKE 1/2 TABLET BY MOUTH 4 TIMES DAILY NEEDED FOR SHORTNESS OF BREATH gabapentin (NEURONTIN) 100 mg capsule Take 1 capsule by mouth three times daily for 90 days. budesonide-formoterol (SYMBICORT) 160-4.5 mcg/actuation inhaler Inhale 2 Puffs as instructed twice daily. clopidogrel (PLAVIX) 75 mg tablet Take 1 tablet by mouth once daily. tamsulosin (FLOMAX) 0.4 mg Take 0.4 mg by mouth once daily. predniSONE (DELTASONE) 10 mg tablet Take 10 mg by mouth once daily. guaiFENesin (MUCINEX) 600 mg 12 hr tablet Take 2 tablets by mouth twice daily. nitroglycerin sublingual (NITROSTAT) 0.4 mg SL tablet Dissolve 1 tablet under the tongue every 5 minutes as needed. DULoxetine (CYMBALTA) 30 mg capsule 1 capsule once daily. ondansetron (ZOFRAN) 4 mg tablet 1 tablet as needed. aspirin, enteric coated (ASPIRIN, ENTERIC COATED) 81 mg EC tablet Take 81 mg by mouth once daily. DULERA 200-5 mcg/actuation inhaler Take 2 Puffs by mouth twice daily. tiotropium (SPIRIVA WITH HANDIHALER) 18 mcg inhalation capsule Inhale 1 capsule as instructed once daily. Use with handihaler. albuterol HFA (PROAIR HFA) 90 mcg/actuation inhaler Inhale 2 Puffs as instructed every 4 hours as needed for Wheezing/Shortness of Breath. No current facility-administered medications for this visit. ALLERGIES Allergen Reactions Imdur [Isosorbide M* Hives Black out and dizziness PAST SURGICAL HISTORY Procedure Laterality Date LUNG BIOPSY Left needle biopsy LUNG SURGERY HX 02/20/20 lt lung nodule removed PAST SURGICAL HISTORY OF TURP PAST SURGICAL HISTORY OF 03/02/1999 triple bypass Physical Exam: OBJECTIVE: Constitutional: Pt is a well developed 81 year old male who is alert, oriented, cooperative and in no apparent distress. Eyes: Following during examination. No redness or drainage. Respiratory: RR normal and nonlabored. Even breathing. No evidence of distress. Psychology: Patient is engaged during conversation. Normal affect and mood. Does not appear depressed or anxious. NVSI unchanged from previous visit. 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 Slightly larger today. Patient has been wearing the surgical shoe whenever he is traveling but around the house he is wearing slippers. Patient encouraged to wear surgical shoes at all times. When in bed, offload the heel x 2 pillos. Continue with santyl. Await vascular findings and possible debridement thereafter. He does have slight serous drainage on right lateral heel. Recommend continued use of betadine. Wound culture performed. Will place patient on antibiotic as precaution. Will place patient on antibiotic as precaution Will repeat xrays Juan Carlos Viveros DPM * Jacy Sunshine LPN - 03/19/2022 1:05 PM EST AMB ROOMING INTAKE FLOWSHEET DATA Pain Pain Level: 9 Pain Location: Heel-Right Description: Aching, Stabbing Duration Amount of Time: 8 Duration Units: Weeks Frequency: Continuous Intervention/Comfort measure: Reposition, Relaxation, Medication Patient presents with: Right Foot - Established Patient, Follow Up, Ulcer, Pain Jacy Sunshine LPN documented in this encounterPromedica [facility]01-04-2023 History of Present illness Narrative* Juan Carlos Viveros - 03/05/2022 6:56 PM EST FOLLOW UP PODIATRIC OFFICE VISIT Chief Complaint: This 81 year old who presents for follow up:right heel ulceration Patient presents to clinic for follow-up right heel ulceration He continues with santyl applied daily He did have ct angion and saw Dr. Vigil yesterday. Per report from Dr. Vigil, further planning to be determined Patient continues to have mild pain to right foot. Taping does help. PAIN EVALUATION No data found in the last 1 encounters. Hemoglobin A1C Date Value Ref Range Status 01/04/2018 5.5 4.3 - 5.6 % Final PCP: Mei Cummins MD PAST MEDICAL HISTORY Diagnosis Date Abdominal aortic aneurysm (AAA) without rupture 11/19/2018 Atypical chest pain CAD (coronary artery disease) s/p CABG 1999, PCI w/ stents COPD (chronic obstructive pulmonary disease) (HCC) Hyperlipidemia Hyperlipidemia Hypertension Prostate cancer (HCC) Dx Dec 2014, s/p radiation, on hormonal therapy Current Outpatient Medications Medication Sig collagenase (SANTYL) ointment Apply to affected area once daily. APPLY TO AFFECTED AREA oxyCODONE IR (ROXICODONE) 5 mg immediate release tablet TAKE 1/2 TABLET BY MOUTH 4 TIMES DAILY NEEDED FOR SHORTNESS OF BREATH budesonide-formoterol (SYMBICORT) 160-4.5 mcg/actuation inhaler Inhale 2 Puffs as instructed twice daily. clopidogrel (PLAVIX) 75 mg tablet Take 1 tablet by mouth once daily. tamsulosin (FLOMAX) 0.4 mg Take 0.4 mg by mouth once daily. predniSONE (DELTASONE) 10 mg tablet Take 10 mg by mouth once daily. guaiFENesin (MUCINEX) 600 mg 12 hr tablet Take 2 tablets by mouth twice daily. nitroglycerin sublingual (NITROSTAT) 0.4 mg SL tablet Dissolve 1 tablet under the tongue every 5 minutes as needed. DULoxetine (CYMBALTA) 30 mg capsule 1 capsule once daily. ondansetron (ZOFRAN) 4 mg tablet 1 tablet as needed. aspirin, enteric coated (ASPIRIN, ENTERIC COATED) 81 mg EC tablet Take 81 mg by mouth once daily. DULERA 200-5 mcg/actuation inhaler Take 2 Puffs by mouth twice daily. tiotropium (SPIRIVA WITH HANDIHALER) 18 mcg inhalation capsule Inhale 1 capsule as instructed once daily. Use with handihaler. albuterol HFA (PROAIR HFA) 90 mcg/actuation inhaler Inhale 2 Puffs as instructed every 4 hours as needed for Wheezing/Shortness of Breath. LORazepam (ATIVAN) 1 mg tablet Take 1 tablet by mouth three times daily for 90 days. atorvastatin (LIPITOR) 20 mg tablet TAKE 1 TABLET BY MOUTH EVERY DAY gabapentin (NEURONTIN) 100 mg capsule Take 1 capsule by mouth three times daily for 90 days. (Patient not taking: Reported on 07/19/2021) No current facility-administered medications for this visit. ALLERGIES Allergen Reactions Imdur [Isosorbide M* Hives Black out and dizziness PAST SURGICAL HISTORY Procedure Laterality Date LUNG BIOPSY Left needle biopsy LUNG SURGERY HX 02/20/20 lt lung nodule removed PAST SURGICAL HISTORY OF TURP PAST SURGICAL HISTORY OF 03/02/1999 triple bypass Physical Exam: OBJECTIVE: Constitutional: Pt is a well developed 81 year old male who is alert, oriented, cooperative and in no apparent distress. Eyes: Following during examination. No redness or drainage. Respiratory: RR normal and nonlabored. Even breathing. No evidence of distress. Psychology: Patient is engaged during conversation. Normal affect and mood. Does not appear depressed or anxious. NVSI unchanged from previous visit. Dermatological: Ulceration #1 Location: right medial heel Measurement: 1.3 cm x 1.3 cm x 1 mm Base: fibrotic No exposed tendon or bone. 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 Ulceration remains stable. Continue with santyl. Await vascular intervention prior to any elective debridement. Will plan for sharp debridement once vascularstatus is restored to right lower extremity. Continue with offloading of right heel while in bed Call with any issues F/u in 2 weeks or sooner if problems arise Juan Carlos Viveros DPM * Selena Merlos RN - 03/05/2022 1:00 PM EST AMB ROOMING INTAKE FLOWSHEET DATA Risk Screening Do you have concerns about personal safety or safety in the home?: No Patient presents with: Right Heel - Follow Up, Ulcer documented in this encounterProm[facility]-04-[facility]23 Instructions* Patient Instructions* Juan Carlos Viveros - 03/05/2022 1:20 PM EST Continue with santyl to right heel Continue with open heel shoe Offload heel while in bed Consider debridement of heel ulcer once cleared by vascular surgery. documented in this encounterPromedica [facility]01-03-2023 History of Present illness Narrative* Tyrell Vigil DO - 03/04/2022 2:29 PM EST This office note has been dictated. Tyrell Vigil DO documented in this encounterPromedica [facility] Hospital12-20-2022 History of Present illness Narrative* Juan Carlos Viveros - 02/18/2022 9:48 PM EST FOLLOW UP PODIATRIC OFFICE VISIT Chief Complaint: This 81 year old who presents for follow up:right heel ulceration Patient presents to clinic for follow-up right heel ulceration Patient is currently applying santyl to the right heel ulceration. He denies any drainage or redness. He does take tylenol for the pain. He had been wearing surgical shoe but is no longer. He is scheduled for ct angio tomorrow. PAIN EVALUATION 02/18/2022 1417 Pain Level: 8 Pain Location: Foot-Right Description: Stabbing;Sharp Duration Amount of Time: 2 Duration Units: Weeks Frequency: Intermittent Intervention/Comfort measure: Reposition;Relaxation Hemoglobin A1C Date Value Ref Range Status 01/04/2018 5.5 4.3 - 5.6 % Final PCP: Mei Cummins MD PAST MEDICAL HISTORY Diagnosis Date Abdominal aortic aneurysm (AAA) without rupture 11/19/2018 Atypical chest pain CAD (coronary artery disease) s/p CABG 1999, PCI w/ stents COPD (chronic obstructive pulmonary disease) (HCC) Hyperlipidemia Hyperlipidemia Hypertension Prostate cancer (HCC) Dx Dec 2014, s/p radiation, on hormonal therapy Current Outpatient Medications Medication Sig collagenase (SANTYL) ointment Apply to affected area once daily. APPLY TO AFFECTED AREA oxyCODONE IR (ROXICODONE) 5 mg immediate release tablet TAKE 1/2 TABLET BY MOUTH 4 TIMES DAILY NEEDED FOR SHORTNESS OF BREATH budesonide-formoterol (SYMBICORT) 160-4.5 mcg/actuation inhaler Inhale 2 Puffs as instructed twice daily. clopidogrel (PLAVIX) 75 mg tablet Take 1 tablet by mouth once daily. tamsulosin (FLOMAX) 0.4 mg Take 0.4 mg by mouth once daily. predniSONE (DELTASONE) 10 mg tablet Take 10 mg by mouth once daily. guaiFENesin (MUCINEX) 600 mg 12 hr tablet Take 2 tablets by mouth twice daily. nitroglycerin sublingual (NITROSTAT) 0.4 mg SL tablet Dissolve 1 tablet under the tongue every 5 minutes as needed. DULoxetine (CYMBALTA) 30 mg capsule 1 capsule once daily. ondansetron (ZOFRAN) 4 mg tablet 1 tablet as needed. aspirin, enteric coated (ASPIRIN, ENTERIC COATED) 81 mg EC tablet Take 81 mg by mouth once daily. tiotropium (SPIRIVA WITH HANDIHALER) 18 mcg inhalation capsule Inhale 1 capsule as instructed once daily. Use with handihaler. albuterol HFA (PROAIR HFA) 90 mcg/actuation inhaler Inhale 2 Puffs as instructed every 4 hours as needed for Wheezing/Shortness of Breath. LORazepam (ATIVAN) 1 mg tablet Take 1 tablet by mouth three times daily for 90 days. atorvastatin (LIPITOR) 20 mg tablet TAKE 1 TABLET BY MOUTH EVERY DAY gabapentin (NEURONTIN) 100 mg capsule Take 1 capsule by mouth three times daily for 90 days. (Patient not taking: Reported on 07/19/2021) DULERA 200-5 mcg/actuation inhaler Take 2 Puffs by mouth twice daily. (Patient not taking: No sig reported) No current facility-administered medications for this visit. ALLERGIES Allergen Reactions Imdur [Isosorbide M* Hives Black out and dizziness PAST SURGICAL HISTORY Procedure Laterality Date LUNG BIOPSY Left needle biopsy LUNG SURGERY HX 02/20/20 lt lung nodule removed PAST SURGICAL HISTORY OF TURP PAST SURGICAL HISTORY OF 03/02/1999 triple bypass Physical Exam: OBJECTIVE: Constitutional: Pt is a well developed 81 year old male who is alert, oriented, cooperative and in no apparent distress. Eyes: Following during examination. No redness or drainage. Respiratory: RR normal and nonlabored. Even breathing. No evidence of distress. Psychology: Patient is engaged during conversation. Normal affect and mood. Does not appear depressed or anxious. NVSI unchanged from previous visit. Dermatological: Ulceration #1 Location: right medial heel Measurement: 1.4 cm x 1.4 cm Base: fibrotic slough. No exposed tendon or bone. No signs of infection Ulceration #2 Location: right lateral heel Measurement: 3 mm x 3 mm Bas: fibrotic. No signs of infection. Musculoskeletal/Orthopaedic: Patient has pain to palpation of right heel. 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 No signs of infection Due to pad and stable ulceration, will defer any debridement until vascular status is restored to right foot Await ct angio Will obtain xray to evaluate for any bone related changes to suggest osteomyelitis. Recommend he continue to float heels off bed while sleeping. F/u in 2 week Juan Carlos Viveros DPM * Selena Merlos RN - 02/18/2022 2:16 PM EST AMB ROOMING INTAKE FLOWSHEET DATA Pain Pain Level: 8 Pain Location: Foot-Right Description: Stabbing, Sharp Duration Amount of Time: 2 Duration Units: Weeks Frequency: Intermittent Intervention/Comfort measure: Reposition, Relaxation Patient presents with: Right Heel - Follow Up, Ulcer Patient is using Santyl. C/o pain to heel that feels sharp like nails. documented in this encounterPromedica [facility] Hospital12-20-2022 History of Present illness Narrative* Kelsea Miller RT(R) - 02/18/2022 3:00 PM EST Radiology Service Progress Note PATIENT NAME: Oswaldo Corley DATE OF SERVICE: February 18, 2022 TIME: 2:58 PM PATIENT IDENTITY VERIFICATION COMPLETED USING TWO (2) IDENTIFIERS: Name and Date of confirmedby patient verbally. FALL SCREENING: Has the patient had 2 falls in the last year or 1 fall with injury or currently using an Ambulatory Assistive Device (Walker, Cane, Wheelchair, Crutches, etc.)? Yes, Patient High Riskfor Falls What interventions were put in place to prevent falls during this visit? Offered Assistance with Transfers/Clothing and Instructed Patient to Remain Seated (Not on Exam Table) Until Exam PATIENT GENDER DATA: Male PATIENT RELEVANT IMPLANT DATA REVIEWED: Not Applicable RADIOLOGY DEPARTMENT: General X-ray: Exam(s) Completed: Lower Extremity X- Ray(s): Foot, Right PERIPHERAL IV DATA: Not applicable SIGNED BY: RT Isai(R) February 18, 2022 2:58 PM documented in this encounterPromedica [facility] Hospital12-20-2022 Instructions* Patient Instructions* Juan Carlos Viveros - 02/18/2022 2:40 PM EST Continue with santyl to heel ulceration Continue with post-op shoe or open heel shoe to avoid pressure Continue to float heels while in bed to avoid pressure to heel Await vascular recommendations. Per vascular conversion, to avoid debridement until perfusion is restored Juan Carlos Viveros DPM documented in this encounterPromedica [facility]12-06-2022 History of Present illness Narrative* Juan Carlos Viveros - 02/04/2022 1:53 PM EST FOLLOW UP PODIATRIC OFFICE VISIT Chief Complaint: This 81 year old who presents for follow up:right heel ulceration Patient presents to clinic for follow up right medial and lateral heel ulceration Patient is currently applying betadine to the heel and using surgical shoe He has ct angion scheduled for next month. I discussed case with Dr. Vigil today. PAIN EVALUATION No data found in the last 1 encounters. Hemoglobin A1C Date Value Ref Range Status 01/04/2018 5.5 4.3 - 5.6 % Final PCP: Mei Cummins MD PAST MEDICAL HISTORY Diagnosis Date Abdominal aortic aneurysm (AAA) without rupture 11/19/2018 Atypical chest pain CAD (coronary artery disease) s/p CABG 1999, PCI w/ stents COPD (chronic obstructive pulmonary disease) (HCC) Hyperlipidemia Hyperlipidemia Hypertension Prostate cancer (HCC) Dx Dec 2014, s/p radiation, on hormonal therapy Current Outpatient Medications Medication Sig oxyCODONE IR (ROXICODONE) 5 mg immediate release tablet TAKE 1/2 TABLET BY MOUTH 4 TIMES DAILY NEEDED FOR SHORTNESS OF BREATH LORazepam (ATIVAN) 1 mg tablet Take 1 tablet by mouth three times daily for 90 days. budesonide-formoterol (SYMBICORT) 160-4.5 mcg/actuation inhaler Inhale 2 Puffs as instructed twice daily. clopidogrel (PLAVIX) 75 mg tablet Take 1 tablet by mouth once daily. tamsulosin (FLOMAX) 0.4 mg Take 0.4 mg by mouth once daily. predniSONE (DELTASONE) 10 mg tablet Take 10 mg by mouth once daily. guaiFENesin (MUCINEX) 600 mg 12 hr tablet Take 2 tablets by mouth twice daily. nitroglycerin sublingual (NITROSTAT) 0.4 mg SL tablet Dissolve 1 tablet under the tongue every 5 minutes as needed. DULoxetine (CYMBALTA) 30 mg capsule 1 capsule once daily. ondansetron (ZOFRAN) 4 mg tablet 1 tablet as needed. aspirin, enteric coated (ASPIRIN, ENTERIC COATED) 81 mg EC tablet Take 81 mg by mouth once daily. tiotropium (SPIRIVA WITH HANDIHALER) 18 mcg inhalation capsule Inhale 1 capsule as instructed once daily. Use with handihaler. albuterol HFA (PROAIR HFA) 90 mcg/actuation inhaler Inhale 2 Puffs as instructed every 4 hours as needed for Wheezing/Shortness of Breath. collagenase (SANTYL) ointment Apply to affected area once daily. APPLY TO AFFECTED AREA atorvastatin (LIPITOR) 20 mg tablet TAKE 1 TABLET BY MOUTH EVERY DAY gabapentin (NEURONTIN) 100 mg capsule Take 1 capsule by mouth three times daily for 90 days. (Patient not taking: Reported on 07/19/2021) DULERA 200-5 mcg/actuation inhaler Take 2 Puffs by mouth twice daily. (Patient not taking: No sig reported) No current facility-administered medications for this visit. ALLERGIES Allergen Reactions Imdur [Isosorbide M* Hives Black out and dizziness PAST SURGICAL HISTORY Procedure Laterality Date LUNG BIOPSY Left needle biopsy LUNG SURGERY HX 02/20/20 lt lung nodule removed PAST SURGICAL HISTORY OF TURP PAST SURGICAL HISTORY OF 03/02/1999 triple bypass Physical Exam: OBJECTIVE: Constitutional: Pt is a well developed 81 year old male who is alert, oriented, cooperative and in no apparent distress. Eyes: Following during examination. No redness or drainage. Respiratory: RR normal and nonlabored. Even breathing. No evidence of distress. Psychology: Patient is engaged during conversation. Normal affect and mood. Does not appear depressed or anxious. NVSI unchanged from previous visit. Dermatological: Ulceration #1 Location: right medial heel Measurement: 1.1 cm x 1.1 cm Base: necrotic No signs of infection Ulceration#2 Location: right lateral heel Measurement 4 mm x 4 mm Base: necrotic No signs of infection. Musculoskeletal/Orthopaedic: Patient has pain to palpation of right medial and lateral heel Xrays reviewed. No fracture. No signs of bone infection. 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 There are no signs of infection. I want patient to continue with surgical shoe I am going to prescribe santyl. If the ulceration becomes moist, resume betadine I discussed case with Dr. Vigil today. In absence of infection, it has been suggested on holding debridement until vascular status is restored to the lower extremity The ulceration is free of infection. Will have him continue santyl and surgical shoe. F/u in 2 weeks If condition worsens, present to hospital immediately. Juan Carlos Viveros DPM documented in this encounterPromedica [facility]12-06-2022 Instructions* Patient Instructions* Juan Carlos Viveros - 02/04/2022 1:53 PM EST Apply santyl to right heel ulcerations once daily If you notice any moisture developing, resume betadine Continue with post-op shoe and protecting heels while in bed Call if any issues arise documented in this encounterPromedica [facility] Hospital11-29-2022 History of Present illness Narrative* Kelsea Miller RT(R) - 01/28/2022 3:40 PM EST Radiology Service Progress Note PATIENT NAME: Oswaldo Corley DATE OF SERVICE: January 28, 2022 TIME: 4:01 PM PATIENT IDENTITY VERIFICATION COMPLETED USING TWO (2) IDENTIFIERS: Name and Date of confirmedby patient verbally. FALL SCREENING: Has the patient had 2 falls in the last year or 1 fall with injury or currently using an Ambulatory Assistive Device (Walker, Cane, Wheelchair, Crutches, etc.)? Yes, Patient High Riskfor Falls What interventions were put in place to prevent falls during this visit? Offered Assistance with Transfers/Clothing and Instructed Patient to Remain Seated (Not on Exam Table) Until Exam PATIENT GENDER DATA: Male PATIENT RELEVANT IMPLANT DATA REVIEWED: Not Applicable RADIOLOGY DEPARTMENT: General X-ray: Exam(s) Completed: Lower Extremity X- Ray(s): Foot, Right PERIPHERAL IV DATA: Not applicable SIGNED BY: RT Isai(R) January 28, 2022 4:01 PM documented in this encounterPromedica Memorial Hospital11-29-2022 Instructions* Patient Instructions* Juan Carlos Viveros - 01/28/2022 3:12 PM EST Recommend betadine applied to right heel inside and outside applied daily Use surgical shoe to eliminate rubbing Would also recommend offloading heels while in bed to eliminate pressure. Place pillow under leg tooffload heel documented in this encounterPromedica Memorial Hospital11-29-2022 History of Present illness Narrative* Juan Carlos Viveros - 01/28/2022 2:54 PM EST Consultation requested by Dr. Vigil for an opinion regarding necrotic heel ulceration. My final recommendations will be communicated back to the requesting physician by way of shared Medical record or letter to requesting physician via [place] mail. Initial Podiatric Office Visit: Chief Complaint: This 81 year old male who presents with chief complaint:right heel ulceration HPI Patient presents to clinic for evaluation of right heel ulceration. Patient states the ulceration of the right heel has been present for nearly 2 weeks. Patient unsurewhat caused it Patient recently saw Dr. Vigil who referred patient here. Since seeing Dr. Vigil, he noticed the wound became red so he presented to the urgent care. He was prescribed keflex and he has noticed the redness improved. He has further vascular testing planned. PAIN EVALUATION No data found in the last 1 encounters. Hemoglobin A1C (%) Date Value 01/04/2018 5.5 PCP: Mei Cummins MD PAST MEDICAL HISTORY Diagnosis Date Abdominal aortic aneurysm (AAA) without rupture 11/19/2018 Atypical chest pain CAD (coronary artery disease) s/p CABG 1999, PCI w/ stents COPD (chronic obstructive pulmonary disease) (HCC) Hyperlipidemia Hyperlipidemia Hypertension Prostate cancer (HCC) Dx Dec 2014, s/p radiation, on hormonal therapy Current Outpatient Medications Medication Sig oxyCODONE IR (ROXICODONE) 5 mg immediate release tablet TAKE 1/2 TABLET BY MOUTH 4 TIMES DAILY NEEDED FOR SHORTNESS OF BREATH LORazepam (ATIVAN) 1 mg tablet Take 1 tablet by mouth three times daily for 90 days. budesonide-formoterol (SYMBICORT) 160-4.5 mcg/actuation inhaler Inhale 2 Puffs as instructed twice daily. clopidogrel (PLAVIX) 75 mg tablet Take 1 tablet by mouth once daily. tamsulosin (FLOMAX) 0.4 mg Take 0.4 mg by mouth once daily. predniSONE (DELTASONE) 10 mg tablet Take 10 mg by mouth once daily. guaiFENesin (MUCINEX) 600 mg 12 hr tablet Take 2 tablets by mouth twice daily. nitroglycerin sublingual (NITROSTAT) 0.4 mg SL tablet Dissolve 1 tablet under the tongue every 5 minutes as needed. DULoxetine (CYMBALTA) 30 mg capsule 1 capsule once daily. ondansetron (ZOFRAN) 4 mg tablet 1 tablet as needed. aspirin, enteric coated (ASPIRIN, ENTERIC COATED) 81 mg EC tablet Take 81 mg by mouth once daily. tiotropium (SPIRIVA WITH HANDIHALER) 18 mcg inhalation capsule Inhale 1 capsule as instructed once daily. Use with handihaler. albuterol HFA (PROAIR HFA) 90 mcg/actuation inhaler Inhale 2 Puffs as instructed every 4 hours as needed for Wheezing/Shortness of Breath. atorvastatin (LIPITOR) 20 mg tablet TAKE 1 TABLET BY MOUTH EVERY DAY gabapentin (NEURONTIN) 100 mg capsule Take 1 capsule by mouth three times daily for 90 days. (Patient not taking: Reported on 07/19/2021) DULERA 200-5 mcg/actuation inhaler Take 2 Puffs by mouth twice daily. (Patient not taking: Reportedon 01/28/2022) No current facility-administered medications for this visit. ALLERGIES Allergen Reactions Imdur [Isosorbide M* Hives Black out and dizziness PAST SURGICAL HISTORY Procedure Laterality Date LUNG BIOPSY Left needle biopsy LUNG SURGERY HX 02/20/20 lt lung nodule removed PAST SURGICAL HISTORY OF TURP PAST SURGICAL HISTORY OF 03/02/1999 triple bypass FAMILY HISTORY Problem Relation Age of Onset Cancer Mother breast, bone Cancer Sister breast Emphysema Sister Smoker Diabetes Father Heart Father Diabetes Brother Heart Brother other (Other) Brother Parkinsons Diabetes Paternal Grandmother Heart Paternal Grandmother Social History Tobacco Use Smoking status: Former Packs/day: 2.00 Years: 40.00 Pack years: 80.00 Types: Cigarettes Start date: 11/08/1962 Quit date: 05/13/2002 Years since quittin.7 Smokeless tobacco: Never Vaping Use Vaping Use: Never used Substance Use Topics Alcohol use: Not Currently Alcohol/week: 3.0 standard drinks Types: 3 Cans of beer per week Comment: light beer Drug use: No Frequency: 5.0 times per week REVIEW OF SYSTEMS GENERAL: Negative for Malaise, significant weight loss, fever RESPIRATORY: Negative for cough, wheezing and shortness of breath CARDIOVASCULAR: Negative for chest pain, leg swelling and palpitations GI: Negative for abdominal discomfort, blood in stools or black stools and change in bowel habits : Negative for dysuria, frequency and incontinence MUSCULOSKELETAL: Negative for joint pain or swelling, back pain, and muscle pain. SKIN: Negative for lesions, rash, and itching. HEMATOLOGY/LYMPHOLOGY Negative for prolonged bleeding, bruising easily, and swollen nodes. ENDOCRINE: Negative for cold or heat intolerance, polyuria, polydipsia and goiter. NEURO: negative Physical Exam: Constitutional: Pt is a well developed 81 year old male who is alert, oriented and cooperative Eyes: Following during examination. No redness or drainage. Respiratory: RR normal and nonlabored. Even breathing. No evidence of distress or shortness of breath. Psychology: Patient is engaged during conversation. Normal affect and mood. Does not appear depressed or anxious during encounter. Vascular: Dorsalis pedis and posterior tibial pulses nonpalpable as b/l Capillary Fill time >5 seconds to digits 1-5 b/l Skin temperature warm to cool proximal to distal b/l Hair growth absent to digits Neurological: decreased light touch/epicritic sensation Vibratory sensation decreased b/l decreased protective sensation + significant neurological deficits Dermatological: Ulceration #1 Location: right medial heel (pic performed) Measurement: 1.2 cm x 0.9 cm Base: necrotic eschar with peeling skin along the periphery. Mild periwound erythema. No purulence noted. Ulceration #2 Location: right lateral heel Measurement: 4 mm x 1 mm Base: hyperkeratotic/black eschar. No signs of infection. Musculoskeletal/Orthopaedic: Patient has pain to palpation of right medial heel Radiographs: ordered ASSESSMENT: (L89.610) Pressure injury of right heel, unstageable ([facility]) (I73.9) Peripheral arterial disease ([facility]) PLAN: On exam, patient has two stable necrotic eschar with likely underlying ulceration. He does have some periwound erythema to the medial ulceration but per patient, is improving with keflex. I am going to have him continue with keflx. There is peeling skin along the medial heel. Carefully, I used tissue nippers to remove this peeling skin without causing any localized trauma. I am going to leave the black eschar intact and treat with betadine to help keep the wound dry and clean. No deep debridement performed and therefore, no need to bill debridement. Patient on exam has nonpalpable pulses. I do feel this patient would wart sharp debridement of ulceration but without satisfactory blood flow, I am going to defer debridement until I review case withDr. Vigil. Once perfusion is restored or patient is cleared for debridement from a vascular stand point, I will bring patient in for sharp debridement and likely santyl application thereaft. It is critical that he offlad this ulceration. I am going to have patient use surgical shoe during ambulation. While in bed, I will offload his heel. Patient will f/u in 1 week JASON Sexton DPM Podiatry [address] [place] [address] Dept: [phone] Dept * Selena Merlos RN - 01/28/2022 2:38 PM EST Patient presents with: Right Heel - New Patient, Ulcer documented in this encounterPromedica [facility] Hospital11-22-2022 History of Present illness Narrative* Tyrell Vigil DO - 01/21/2022 10:52 AM EST This office note has been dictated. Tyrell Vigil DO documented in this encounterPromedica [facility] Hospital10-17-2022 History of Present illness Narrative* Mei Cummins MD - 12/16/2021 3:00 PM EDT Chief Complaint Patient presents with: F/U 3 Month HPI Oswaldo Corley is a 81 year old male who presents here today for a 3 month follow up. Pt here today for a 3 month follow up, with his . Went to [place] 12/06 - 12/10 to visit family; picked up URI while there.. GI/Uro - Denies any stomach, bowel or urinary issues. Currently taking Flomax 0.4 mg once daily. SILVER/Depression - Chronic anxiety that pt is currently taking Ativan 1 mg 0.5-1 tab po TID and Cymbalta 30 mg daily. Pt has been on chronic benzo's. Pt is constantly worrying, but medication helps this. Follows with Palliative Care, Karla every 2-3 months. HTN - Checks BP occasionally, if he feels this is off. Chronic sob due to COPD. Occasional chest pain and dizziness. Follows with Dr. Manzano in Cardiology, recently seen on 11/25/21. Has discussed his low pulse with Cardio. Currently on no medications. Had recent labs done. Lipids - Tries to watch diet, by counting calories, unable to do too much exercise with his COPD. On current regimen of Lipitor 20 mg once daily. Cardio requested repeat fasting labs. Pain - Chronic pain that pt was previously treated with Tramadol 50 mg in the past, but no longer taking. COPD - Follows with Pulmonary, Dr. Calvillo. Has an upcoming appt in December. States he went to [facility] ED yesterday due to increased sob and feeling ill. Pt tested negative for Covid/Flu. Was given breathing treatments into the hospital and a steroid shot. Was d/c home with Prednisone taper and Doxycycline 100 mg. He was p[laced on oxycodone once daily to help with breathing; Currently holding Oxy while on steroids, but will then resume his regimen. Pt states he's currently on 3-4 liters of 02, prior to this he was taking 2-3 L. Hem/Onc - Routine f/u with Dr. Meraz for lung cancer. Past medical history, appointments, medications, allergies reviewed. Previous Medical History PAST MEDICAL HISTORY Diagnosis Date Abdominal aortic aneurysm (AAA) without rupture (HCC) 11/19/2018 Atypical chest pain CAD (coronary artery disease) s/p CABG 1999, PCI w/ stents COPD (chronic obstructive pulmonary disease) (HCC) Hyperlipidemia Hyperlipidemia Hypertension Prostate cancer (HCC) Dx Dec 2014, s/p radiation, on hormonal therapy Previous Surgical History PAST SURGICAL HISTORY Procedure Laterality Date LUNG BIOPSY Left needle biopsy LUNG SURGERY HX 02/20/20 lt lung nodule removed PAST SURGICAL HISTORY OF TURP PAST SURGICAL HISTORY OF 03/02/1999 triple bypass Family History FAMILY HISTORY Problem Relation Age of Onset Cancer Mother breast, bone Cancer Sister breast Emphysema Sister Smoker Diabetes Father Heart Father Diabetes Brother Heart Brother other (Other) Brother Parkinsons Diabetes Paternal Grandmother Heart Paternal Grandmother Patient Allergies ALLERGIES Allergen Reactions Imdur [Isosorbide M* Hives Black out and dizziness Current Medications Current Outpatient Medications on File Prior to Visit Medication Sig oxyCODONE IR (ROXICODONE) 5 mg immediate release tablet TAKE 1/2 TABLET BY MOUTH 4 TIMES DAILY NEEDED FOR SHORTNESS OF BREATH LORazepam (ATIVAN) 1 mg tablet Take 1 tablet by mouth three times daily for 90 days. atorvastatin (LIPITOR) 20 mg tablet TAKE 1 TABLET BY MOUTH EVERY DAY gabapentin (NEURONTIN) 100 mg capsule Take 1 capsule by mouth three times daily for 90 days. (Patient not taking: Reported on 07/19/2021) budesonide-formoterol (SYMBICORT) 160-4.5 mcg/actuation inhaler Inhale 2 Puffs as instructed twice daily. clopidogrel (PLAVIX) 75 mg tablet Take 1 tablet by mouth once daily. tamsulosin (FLOMAX) 0.4 mg Take 0.4 mg by mouth once daily. predniSONE (DELTASONE) 10 mg tablet Take 10 mg by mouth once daily. guaiFENesin (MUCINEX) 600 mg 12 hr tablet Take 2 tablets by mouth twice daily. nitroglycerin sublingual (NITROSTAT) 0.4 mg SL tablet Dissolve 1 tablet under the tongue every 5 minutes as needed. DULoxetine (CYMBALTA) 30 mg capsule 1 capsule once daily. ondansetron (ZOFRAN) 4 mg tablet 1 tablet as needed. aspirin, enteric coated (ASPIRIN, ENTERIC COATED) 81 mg EC tablet Take 81 mg by mouth once daily. DULERA 200-5 mcg/actuation inhaler Take 2 Puffs by mouth twice daily. (Patient not taking: Reportedon 04/26/2021 ) tiotropium (SPIRIVA WITH HANDIHALER) 18 mcg inhalation capsule Inhale 1 capsule as instructed once daily. Use with handihaler. albuterol HFA (PROAIR HFA) 90 mcg/actuation inhaler Inhale 2 Puffs as instructed every 4 hours as needed for Wheezing/Shortness of Breath. No current facility-administered medications on file prior to visit. Social History Social History Tobacco Use Smoking status: Former Packs/day: 2.00 Years: 40.00 Pack years: 80.00 Types: Cigarettes Start date: 11/08/1962 Quit date: 05/13/2002 Years since quittin.6 Smokeless tobacco: Never Vaping Use Vaping Use: Never used Substance Use Topics Alcohol use: Not Currently Alcohol/week: 3.0 standard drinks Types: 3 Cans of beer per week Comment: light beer Drug use: No Frequency: 5.0 times per week EXAM: BP 136/78 (BP Site: Left Arm, BP Position: Sitting, BP Cuff Size: Regular Adult) Pulse 80 Resp 20 Wt 82.1 kg (181 lb) BMI 25.97 kg/m General Appearance: Well appearing, alert, in no acute distress, well-hydrated, well nourished.. Lungs: Lungs clear to auscultation. No wheezing, rhonchi, rales.. Heart: RRR without murmur, gallop, or rubs. No ectopy. Health Maintenance List BP CONTROLLED (<130/80) Never done DTAP,TDAP,TD(1 - Tdap) Never done SHINGRIX VACCINE(1 of 2) Never done ADVANCE DIRECTIVE DISCUSSION Never done DEPRESSION ASSESSMENT Never done COVID-19 VACCINE(4 - Booster for Pfizer series) due on 04/03/2021 INFLUENZA(1) due on 10/31/2021 ANNUAL PCP TEAM CHRONIC DISEASE VISIT due on 09/04/2022 LDL CHOLESTEROL due on 11/26/2022 DIABETES SCREEN due on 11/26/2024 SPIROMETRY Completed PNEUMOCOCCAL: 65+ Completed Data reviewed Appointment on 11/26/2021 Component Date Value Protein, Total 11/26/2021 6.2 (A) Albumin 11/26/2021 4.2 Calcium, Total 11/26/2021 9.3 Bilirubin, Total 11/26/2021 0.6 Alkaline Phosphatase 11/26/2021 70 AST 11/26/2021 18 ALT 11/26/2021 10 Glucose 11/26/2021 120 (A) BUN 11/26/2021 21 Creatinine 11/26/2021 0.91 Sodium 11/26/2021 137 Potassium 11/26/2021 4.7 Chloride 11/26/2021 100 CO2 11/26/2021 27 Anion Gap 11/26/2021 10 Estimated Glomerular Kirit* 11/26/2021 86 Cholesterol, Total 11/26/2021 192 Triglyceride 11/26/2021 96 HDL Cholesterol 11/26/2021 54 Non HDL Cholesterol 11/26/2021 138 (A) Fasting Time 11/26/2021 12 VLDL Cholesterol 11/26/2021 19 TC:HDL Ratio 11/26/2021 3.56 LDL Cholesterol 11/26/2021 119 (A) LDL:HDL Ratio 11/26/2021 2.20 Appointment on 11/15/2021 Component Date Value Protein, Total 11/15/2021 6.4 Albumin 11/15/2021 4.2 Calcium, Total 11/15/2021 9.0 Bilirubin, Total 11/15/2021 0.5 Alkaline Phosphatase 11/15/2021 67 AST 11/15/2021 18 ALT 11/15/2021 11 Glucose 11/15/2021 122 (A) BUN 11/15/2021 19 Creatinine 11/15/2021 0.94 Sodium 11/15/2021 140 Potassium 11/15/2021 4.5 Chloride 11/15/2021 101 CO2 11/15/2021 29 Anion Gap 11/15/2021 10 Estimated Glomerular Kirit* 11/15/2021 82 WBC 11/15/2021 9.14 RBC 11/15/2021 4.95 Hemoglobin 11/15/2021 15.1 Hematocrit 11/15/2021 46.3 MCV 11/15/2021 93.5 MCH 11/15/2021 30.5 MCHC 11/15/2021 32.6 RDW-CV 11/15/2021 14.7 Platelet Count 11/15/2021 173 MPV 11/15/2021 9.1 Neut% 11/15/2021 90.1 Abs Neut 11/15/2021 8.22 (A) Lymph% 11/15/2021 5.0 Abs Lymph 11/15/2021 0.46 (A) Posey% 11/15/2021 3.9 Abs Posey 11/15/2021 0.36 Eosin% 11/15/2021 0.4 Abs Eosin 11/15/2021 0.04 Baso% 11/15/2021 0.2 Abs Baso 11/15/2021 <0.03 Immature Gran % 11/15/2021 0.4 Abs Immature Gran 11/15/2021 0.04 NRBC 11/15/2021 0.0 Absolute nRBC 11/15/2021 <0.01 Diff Type 11/15/2021 Auto ASSESSMENT/PLAN: 1. Anxiety - ICD9: 300.00, ICD10: F41.9 (primary diagnosis) Continue current medications. 2. Chronic obstructive pulmonary disease with acute exacerbation (HCC) - ICD9: 491.21, ICD10: J44.1 Continue current medications. 3. Essential hypertension - ICD9: 401.9, ICD10: I10 - good control - Continue current medication(s) - Recommended regular aerobic exercise. - Recommend home blood pressure monitoring, to bring results in on next visit - Goal of BP <140/90 4. Coronary artery disease involving [place] coronary artery of [place] heart without angina pectoris- ICD9: 414.01, ICD10: I25.10 Continue current medications. 5. Hypertrophy of prostate with urinary obstruction - ICD9: 600.01, 599.69, ICD10: N40.1, N13.8 6. Hyperlipidemia, mixed - ICD9: 272.2, ICD10: E78.2 7. Squamous carcinoma of lung, left (HCC) - ICD9: 162.9, ICD10: C34.92 Follow with Oncology 3 mo f/u. I agree with the Chief Complaint, ROS, and Past Histories independently gathered by the clinical product support technician and the remaining scribed note accurately describes my personal service to the patient. Medical Decision Making: Problems: Moderate: 1+ chronic illnesses with change and 2+ stable chronic illnesses Risk: Moderate: Drug management Medical Decision Making Level: 4 - Moderate Mei Cummins MD The documentation for this note was completed by Vickie Carrillo Ma acting as scribe for Mei Cummins MD. December 16, 2021 2:36 PM. Vickie Carrillo Ma documented in this encounterPromedica [facility] Hospital09-26-2022 Instructions* Patient Instructions* Bela Manzano MD - 11/25/2021 1:32 PM EDT Repeat fasting blood work documented in this encounterPromedica Memorial Hospital09-26-2022 History of Present illness Narrative* Bela Manzano MD - 11/25/2021 1:20 PM EDT Images from the original note were not included. [facility] Cardiology ([facility]) [address] [id number] OUTPATIENT VISIT DATE 11/25/2021 PRIMARY CARE PHYSICIAN: Mei Cummins [address] [place] [address] HISTORY OF PRESENT ILLNESS: Mr. Corley is a 81 year old gentleman with coronary artery disease and remote coronary bypass grafting, hypertension, dyslipidemia, COPD, with a history of squamous cell carcinoma status post thoracotomy with left lower lobe lung wedge resection and radiation therapy who presents for routine follow-up. Since last visit, he tells me he has been doing well. He is maintained on home oxygen for his COPD. He tries to go to the grocery store to walk with his 's grocery shopping. He tells me he can complete 35 to 40 minutes of walking with minimal difficulty. He has not had symptoms for CHF including PND, orthopnea, or lower extremity edema. He denies feelings of palpitations, lightheadedness,dizziness, or syncope. PAST MEDICAL HISTORY Diagnosis Date Abdominal aortic aneurysm (AAA) without rupture (HCC) 11/19/2018 Atypical chest pain CAD (coronary artery disease) s/p CABG 1999, PCI w/ stents COPD (chronic obstructive pulmonary disease) (HCC) Hyperlipidemia Hyperlipidemia Hypertension Prostate cancer (HCC) Dx Dec 2014, s/p radiation, on hormonal therapy PAST SURGICAL HISTORY Procedure Laterality Date LUNG BIOPSY Left needle biopsy LUNG SURGERY HX 02/20/20 lt lung nodule removed PAST SURGICAL HISTORY OF TURP PAST SURGICAL HISTORY OF 03/02/1999 triple bypass SOCIAL HISTORY Social History Tobacco Use Smoking status: Former Packs/day: 2.00 Years: 40.00 Pack years: 80.00 Types: Cigarettes Start date: 11/08/1962 Quit date: 05/13/2002 Years since quittin.5 Smokeless tobacco: Never Vaping Use Vaping Use: Never used Substance Use Topics Alcohol use: Not Currently Alcohol/week: 3.0 standard drinks Types: 3 Cans of beer per week Comment: light beer Drug use: No Frequency: 5.0 times per week FAMILY HISTORY Problem Relation Age of Onset Cancer Mother breast, bone Cancer Sister breast Emphysema Sister Smoker Diabetes Father Heart Father Diabetes Brother Heart Brother other (Other) Brother Parkinsons Diabetes Paternal Grandmother Heart Paternal Grandmother ALLERGIES: ALLERGIES Allergen Reactions Imdur [Isosorbide M* Hives Black out and dizziness MEDICATIONS: oxyCODONE IR (ROXICODONE) 5 mg immediate release tablet TAKE 1/2 TABLET BY MOUTH 4 TIMES DAILY NEEDED FOR SHORTNESS OF BREATH LORazepam (ATIVAN) 1 mg tablet Take 1 tablet by mouth three times daily for 90 days. atorvastatin (LIPITOR) 20 mg tablet TAKE 1 TABLET BY MOUTH EVERY DAY budesonide-formoterol (SYMBICORT) 160-4.5 mcg/actuation inhaler Inhale 2 Puffs as instructed twice daily. clopidogrel (PLAVIX) 75 mg tablet Take 1 tablet by mouth once daily. tamsulosin (FLOMAX) 0.4 mg Take 0.4 mg by mouth once daily. predniSONE (DELTASONE) 10 mg tablet Take 10 mg by mouth once daily. guaiFENesin (MUCINEX) 600 mg 12 hr tablet Take 2 tablets by mouth twice daily. nitroglycerin sublingual (NITROSTAT) 0.4 mg SL tablet Dissolve 1 tablet under the tongue every 5 minutes as needed. DULoxetine (CYMBALTA) 30 mg capsule 1 capsule once daily. ondansetron (ZOFRAN) 4 mg tablet 1 tablet as needed. aspirin, enteric coated (ASPIRIN, ENTERIC COATED) 81 mg EC tablet Take 81 mg by mouth once daily. tiotropium (SPIRIVA WITH HANDIHALER) 18 mcg inhalation capsule Inhale 1 capsule as instructed once daily. Use with handihaler. albuterol HFA (PROAIR HFA) 90 mcg/actuation inhaler Inhale 2 Puffs as instructed every 4 hours as needed for Wheezing/Shortness of Breath. gabapentin (NEURONTIN) 100 mg capsule Take 1 capsule by mouth three times daily for 90 days. (Patient not taking: Reported on 07/19/2021) DULERA 200-5 mcg/actuation inhaler Take 2 Puffs by mouth twice daily. (Patient not taking: Reportedon 04/26/2021 ) REVIEW OF SYSTEMS: Review of Systems Constitutional: Positive for malaise/fatigue. Negative for chills, fever and weight loss. HENT: Negative for hearing loss and sore throat. Eyes: Negative for blurred vision and double vision. Respiratory: Positive for shortness of breath. Cardiovascular: Negative. Gastrointestinal: Negative. Genitourinary: Negative for dysuria, frequency, hematuria and urgency. Musculoskeletal: Positive for back pain, joint pain and myalgias. Skin: Negative. Neurological: Negative for dizziness, seizures, loss of consciousness, weakness and headaches. Endo/Heme/Allergies: Negative for environmental allergies. Does not bruise/bleed easily. Psychiatric/Behavioral: Negative for depression. PHYSICAL EXAMINATION: BP 120/80 Pulse 104 Wt 178 lb (80.7kg) SpO2 98[on 3 L o2 per NC]% General: Pleasant gentleman sitting appears comfortable no apparent distress alert and oriented x3 HEENT: Carotid upstrokes are brisk bilaterally without bruits. No JVD appreciated. Pulmonary: Diminished breath sounds noted throughout. No rales, wheezes, rhonchi Cardiovascular: Normal S1, S2 with a regularly irregular pulse and normal rate.. No murmurs, rubs, or gallops Extremities: Warm, well-perfused, no lower extremity edema. 2+ distal pulses CARDIOVASCULAR MEDICINE TESTING: ECG in the office April 29, 2021: Normal sinus rhythm with frequent PVCs. Possible left atrial enlargement. CORONARY ANGIOGRAPHY 03/14/15 LM: 10-20% ostial stenosis proximal to the stent which is widely patent and extends into the LAD. LAD: Moderate sized vessel which gives a small first diagonal branch and larger second diagonal branch. There is diffuse 10-20% stenosis in the proximal vessel. The distal vessel is of smaller caliper but has no significant stenosis. The first diagonal branch has mild narrowing at its ostium but is a tiny vessel. The larger second diagonal branch is normal. LCX: Non-dominant vessel which gives a tiny first marginal branch and large second bifurcating marginal branch. There is 70-80% diffuse stenosis in the proximal vessel and a second 60-70% stenosis atthe bifurction on the OM2. The OM2 fills competitively from the [place] LCX and the SVG. RCA: Dominant vessel which is stented from the proximal-distal portion. There is 20-30% diffuse ISRwith 50-60% ISR in the mid vessel. The LAD has mild diffuse stenoses with a diiscreet 30-40% lesiondistally. SVG-OM: Patent with 40-50% stenosis in an area of some mild toruosity. FFR was performed of the mid RCA lesion and was 0.87. ASSESSMENT Severe single vessel coronary artery disease of the left circumflex artery with a patent bypass graft to the OM. Moderate right coronary artery disease which was not hemodynamically significant by FFR. PVR 12/18/2020: IMPRESSION Compared to prior study of 12/16/2019, appears no significant change in waveforms at ankle. Non compressible arteries. RIGHT SIDE Resting right ankle brachial index: 1.93 Non-compressible arteries, TRAE not accurate. Right toe brachial index: 0.60 Non-compressible vessels, results called by PVR tracings. Abnormal toe brachial index at rest is evidence of peripheral artery disease. Right ankle: Moderate disease at rest. LEFT SIDE Resting left ankle brachial index: 1.93 Non-compressible arteries, TRAE not accurate. Left toe brachial index: 0.61 Non-compressible vessels, results called by PVR tracings. Abnormal toe brachial index at rest is evidence of peripheral artery disease. Left ankle: Moderate disease at rest. PVR 12/16/19: IMPRESSION RIGHT SIDE Resting right ankle brachial index: 1.21 Partially non-compressible arteries, TRAE not accurate. Right toe brachial index: 0.43 Non-compressible vessels, results called by PVR tracings. Abnormal toe brachial index at rest is evidence of peripheral artery disease. Right ankle: Moderate disease at rest. Aortic or bilateral iliofemoral disease. LEFT SIDE Resting left ankle brachial index: 2.20 Non-compressible arteries, TRAE not accurate. Left toe brachial index: 0.60 Non-compressible vessels, results called by PVR tracings. Abnormal toe brachial index at rest is evidence of peripheral artery disease. Left ankle: Moderate disease at rest. Aortic or bilateral iliofemoral disease. ECG in the office 10/15/2020: Sinus rhythm with occasional PVCs. Normal axis and intervals. No significant ST or T wave changes IMPRESSION: Mr. Corley is a 81 year old gentleman with known coronary artery disease prior coronary bypass grafting in 1999, COLEMAN-LAD, FRANCIA-RCA, SVG-left circumflex/OM) most recent cardiac catheterization 2012 at which time he was found to have occlusion of the COLEMAN and FRANCIA grafts. He underwent stenting of the left main coronary artery. Most recent cardiac catheterization 2015 as noted above. He is also treated for hypertension, dyslipidemia, and COPD. He has a history of small cell lung cancer and is status post left lower lobe wedge resection and radiation therapy. He presents the office for routine follow-up. PLAN AND RECOMMENDATIONS: 1. Coronary artery disease involving [place] coronary artery of [place] heart without angina pectoris- ICD9: 414.01, ICD10: I25.10 (primary diagnosis) Patient doing well without overt anginal symptoms. Continue current medical therapy and risk factormodification. - BASIC METABOLIC PNL 2. Essential hypertension - ICD9: 401.9, ICD10: I10 Well-controlled on current regimen. 3. Hyperlipidemia, mixed - ICD9: 272.2, ICD10: E78.2 Maintained on Lipitor 20 mg daily. Patient needs repeat fasting blood work. - LIPID PANEL BASIC - BASIC METABOLIC PNL - AST/SGOT BLD - ALT/SGPT 4. Abdominal aortic aneurysm (AAA) without rupture (HCC) - ICD9: 441.4, ICD10: I71.4 Bela Manzano MD documented in this encounterPromedica [facility]09-20-2022 Miscellaneous Notes* Telephone Encounter - Mei Cummins MD - 11/19/2021 2:13 PM EDT OK to refill as ordered Mei Cummins MD * Telephone Encounter - Malu Tavares Ma - 11/19/2021 1:54 PM EDT Last office visit: 09/04/21 F/u scheduled: 12/16/21 Last refilled on: Ativan #90 with 2 refills on 07/22/21 Malu Tavares Ma documented in this encounterPromedica [facility] Hospital09-20-2022 History of Present illness Narrative* Salazar Meraz DO - 11/19/2021 11:47 AM EDT Oncologic problem(s): 1) 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 HPI: The patient is a 81-year-old male with a past medical history significant for hyperlipidemia, hypertension, AAA, coronary artery disease (CABG x3 vessels), COPD and prostate cancer. Patient underwent a CT scan of the abdomen which incidentally revealed the presence of the left lower lobe lung nodule which was not previously observed on a CT chest from 2017. He therefore underwent a CT of the chest on 01/17/2020. That study demonstrated stable appearing scarring in the right lower lobe unchanged from previous study in 2013. There was scarring and nodularity left upper lobe aswell as a focal mass in the left lower lobe measuring 1.4 x 1.1 x 1.0 cm. He underwent a CT-guided biopsy on 01/27/2020. Evidently the tissue was nondiagnostic and the patient developed a pneumothorax. He was transferred to [facility], [place]. PET scan 02/17/2020 done at [facility] demonstrated a 1.2 cm spiculated nodule in the periphery of the left lower lobe with intense FDG uptake. There was a small to moderate sized loculated pleural effusion along the lateral aspect of the left hemithorax. There was also moderately intense focal FDG accumulation along the posterior periphery of the prostate intensity uptake was suspicious for malignancy. There is a 3.4 cm infrarenal abdominal aortic aneurysm. Uderwent a left thoracoscopy with conversion to mini thoracotomy, evacuation of pleural effusion along with wedge resection of the left lower lobe lung mass including frozen section on 02/20/2020. Pathology: Moderately differentiated squamous cell carcinoma extending to the inked parenchymal margin. Pleural biopsy demonstrated fibrous tissue with hemorrhage and background blood clot. Synoptic report reviewed in care everywhere. Briefly overall tumor size was 1.1 x 0.9 x 0 point centimeter. It was a single focus of disease. No invasion to adjacent structures. Lymphovascular invasion was not identified bronchial and vascular margins were not applicable and the parenchymal margin was positive for invasive carcinoma. No lymph nodes observed in the specimen. Completed RT to the left lower lung on 05/21/2020. He was hospitalized on July 09 for pneumonia/exacerbation of COPD. Couple days prior to that he had sudden worsening of his chronic dyspnea. He underwent repeat CT chest on 08/10/2020. The study demonstrated tree-in-bud formation concerning for multifocal pneumonia in the right lung with a left apical pulmonary nodule with internal cavitation. Underwent bronchoscopy on 08/14. Lavage was performed. Cultures grew MSSA and Streptococcus mitis. He was treated with antimicrobials due to decompensated respiratory status and manage with prednisone as well. He had improvement in symptoms. Presents for ongoing oncologic management. Interim history: On prednisone 10 mg daily and oxycodone 2.5 mg prn dyspnea. Helps. Also helps with the pain in leftribs. Good appetite. PMH, medications and allergies personally reviewed by me today. Any changes documented in appropriate section. ROS: Constitutional: Denies episodes of fever and night sweats. Normal appetite. Neuro: Denies CERON, vertigo, dizziness and imbalance. Denies symptoms of neuropathy. HEENT: No recent change in voice, vision or hearing. Resp: See above. CVS: Denies exertional chest pain, PND, orthopnea and LE edema. GI: Denies dysgeusia. Denies symptoms of stomatitis. Denies dysphagia and odynophagia. Denies reflux, n/v, change in bowel habits and abdominal pain. : Denies dysuria or gross hematuria. Endo: Denies hot flashes. Denies polyuria and polydipsia. Denies heat and cold intolerance. Musculoskeletal: See above. Derm: Denies rash. Denies jaundice and diffuse pruritis. Heme: Denies unusual bleeding and unexplained bruising. Psych: Normal mood. PHYSICAL EXAM: Vitals: Blood pressure 126/73, pulse 82, temperature 36.3 C (97.4 F), weight 83 kg (183 lb), SpO2 100 %. Well-appearing and in no acute distress. EYES: Sclerae are anicteric bilaterally. NECK: Supple. LYMPHATIC: There is no palpable cervical or supraclavicular adenopathy. RESPIRATORY: Inspiratory breath sounds are of very diminished intensity in all [place]. CARDIOVASCULAR: Rhythm is regular. ABDOMEN: The abdomen is nondistended. Extremities: No swelling or edema. SKIN: No jaundice or rash. No petechiae. MS: There is a palpable defect in the left rib in the posterior axillary line. Tender. ASSESSMENT/PLAN: (C33, C34.80) Cancer of trachea, bronchus, and lung (HCC) (primary encounter diagnosis) Assessment: -In summary the patient is a 81-year-old male with a past medical history significant for advanced/severe COPD and prostate cancer who underwent a wedge resection for diagnostic and therapeutic purposes of a left lower lobe lung nodule. 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 -He received adjuvant radiation. -PET in July revealed new area along left pleura with some increase in FDG uptake not meeting criteria for viable neoplasm. -Reviewed CT scan results with him. No evidence of recurrent cancer. Plan: -Repeat CTs in about 6 months. -He will follow-up with his other healthcare providers for management of COPD and other healthcare needs. Portions of this documentation were copied and pasted from previous office visit notes in order to provide a cohesive continuity of the history. The note has been reviewed and edited and updated as necessary. During this patient visit I have spent approximately 15 minutes out of 20 in counseling regarding test results and coordinating care. Salazar Meraz DO documented in this encounterPromedica Memorial Hospital09-16-2022 History of Present illness Narrative* RT Delvis(R) - 11/15/2021 11:20 AM EDT Radiology Service Progress Note DATE OF SERVICE: November 15, 2021 TIME: 11:52 AM PATIENT IDENTITY VERIFICATION COMPLETED USING TWO (2) STANDARD IDENTIFIERS: Name and Date of confirmed by patient verbally. FALL SCREENING: Has the patient had 2 falls in the last year or 1 fall with injury or currently using an Ambulatory Assistive Device (Walker, Cane, Wheelchair, Crutches, etc.)? No PATIENT GENDER DATA: Male PATIENT RELEVANT IMPLANT DATA REVIEWED: Yes ALLERGIES: Reviewed and unchanged CONTRAST ALLERGY: NO. EXAM: CT -CONTRAST INDUCED NEPHROPATHY RISK FACTORS: Patient age > 60 years CREATININE: Creatinine Date Value Ref Range Status 11/15/2021 0.94 0.73 - 1.22 mg/dL Final 07/15/2021 1.03 0.73 - 1.22 mg/dL Final 04/23/2021 1.03 0.73 - 1.22 mg/dL Final Estimated Glomerular Filtration Rate Date Value Ref Range Status 11/15/2021 82 >=60 mL/min/1.73m Final Comment: Estimated Glomerular Filtration Rate (eGFR) is calculated using the 2020 CKD-EPI creatinine equation. This equation utilizes serum creatinine, sex, and age as parameters. The creatinine assay has traceable calibration to isotope dilution- mass spectrometry. Refer to KDIGO guidelines for clinical interpretation. In patients with unstable renal function, e.g. those with acute kidney injury, the eGFRmay not accurately reflect actual GFR. eGFR- Date Value Ref Range Status 04/23/2021 >60 Final P.O.C.T. RESULTS: POC done: Yes, See Lab Tab November 15, 2021 TREATMENT: N/A PERIPHERAL IV DATA: Ambulatory: A peripheral IV was started in the Left antecubital site with a Angio cath: 22 gauge. RADIOLOGY DEPARTMENT: CT; Exam(s) Completed: Chest SIGNATURE: RT Joey(R) PATIENT NAME: Oswaldo Corley DATE: November 15, 2021 TIME: 11:52 AM documented in this encounterPromedica [facility]09-14-2022 Miscellaneous Notes* Telephone Encounter - Salazar Meraz DO - 11/13/2021 4:00 PM EDT Orders filed. Salazar Mearz DO * Telephone Encounter - Radha Pearson LPN - 11/13/2021 2:37 PM EDT Please file orders. Radha Pearson LPN * Telephone Encounter - GAUTAM Vick - 11/13/2021 2:00 PM EDT When placing orders for pt please make this order (creatinine ,bmp or cmp) stats stat please , pt'sappt Is on 11/15/21 , for CT @ 11:20am documented in this encounterPromedica Memorial [facility]07-06-2022 History of Present illness Narrative* Mei Cummins MD - 09/04/2021 2:40 PM EDT Chief Complaint Patient presents with: F/U 3 Month HPI Oswaldo Corley is a 81 year old male who presents here today for a 3 month follow up. Pt here today for a routine 3 month medication follow up. GI/Uro - Denies any stomach, bowel or urinary issues. On current regimen of Flomax 0.4 mg once daily. SILVER/Depression - Chronic anxiety that pt is taking Ativan 1 mg 0.5-1 tab po TID and Cymbalta 30 mg daily. Pt is constantly worrying, but medication helps keep him stable. Follows with [facility] every 2-3 months. HTN - Will check BP occasionally, if he feels this is off. Chronic sob due to COPD. Occasional chest pain and dizziness. Follows with Dr. Manzano in Cardiology. Has discussed his low pulse with Cardio. Currently on no medications. Lipids - Tries to watch diet, by counting calories, unable to do too much exercise with his COPD. On current regimen of Lipitor 20 mg once daily. Pain - Chronic pain that pt was previously treated with Tramadol 50 mg in the past, but no longer taking. Was prescribed Gabapentin [address] Meraz for pain. COPD - Follows with Pulmonary, Dr. Calvillo. Hem/Onc - Routine f/u with Dr. Meraz. Past medical history, appointments, medications, allergies reviewed. Previous Medical History PAST MEDICAL HISTORY Diagnosis Date Abdominal aortic aneurysm (AAA) without rupture (HCC) 11/19/2018 Atypical chest pain CAD (coronary artery disease) s/p CABG 1999, PCI w/ stents COPD (chronic obstructive pulmonary disease) (HCC) Hyperlipidemia Hyperlipidemia Hypertension Prostate cancer (HCC) Dx Dec 2014, s/p radiation, on hormonal therapy Previous Surgical History PAST SURGICAL HISTORY Procedure Laterality Date LUNG BIOPSY Left needle biopsy LUNG SURGERY HX 02/20/20 lt lung nodule removed PAST SURGICAL HISTORY OF TURP PAST SURGICAL HISTORY OF 03/02/1999 triple bypass Family History FAMILY HISTORY Problem Relation Age of Onset Cancer Mother breast, bone Cancer Sister breast Emphysema Sister Smoker Diabetes Father Heart Father Diabetes Brother Heart Brother other (Other) Brother Parkinsons Diabetes Paternal Grandmother Heart Paternal Grandmother Patient Allergies ALLERGIES Allergen Reactions Imdur [Isosorbide M* Hives Black out and dizziness Current Medications Current Outpatient Medications on File Prior to Visit Medication Sig atorvastatin (LIPITOR) 20 mg tablet TAKE 1 TABLET BY MOUTH EVERY DAY LORazepam (ATIVAN) 1 mg tablet Take 1 tablet by mouth three times daily for 90 days. gabapentin (NEURONTIN) 100 mg capsule Take 1 capsule by mouth three times daily for 90 days. (Patient not taking: Reported on 07/19/2021) budesonide-formoterol (SYMBICORT) 160-4.5 mcg/actuation inhaler Inhale 2 Puffs as instructed twice daily. clopidogrel (PLAVIX) 75 mg tablet Take 1 tablet by mouth once daily. tamsulosin (FLOMAX) 0.4 mg Take 0.4 mg by mouth once daily. predniSONE (DELTASONE) 10 mg tablet Take 10 mg by mouth once daily. guaiFENesin (MUCINEX) 600 mg 12 hr tablet Take 2 tablets by mouth twice daily. nitroglycerin sublingual (NITROSTAT) 0.4 mg SL tablet Dissolve 1 tablet under the tongue every 5 minutes as needed. DULoxetine (CYMBALTA) 30 mg capsule 1 capsule once daily. ondansetron (ZOFRAN) 4 mg tablet 1 tablet as needed. traMADol (ULTRAM) 50 mg tablet Take 50 mg by mouth every 6 hours as needed. aspirin, enteric coated (ASPIRIN, ENTERIC COATED) 81 mg EC tablet Take 81 mg by mouth once daily. DULERA 200-5 mcg/actuation inhaler Take 2 Puffs by mouth twice daily. (Patient not taking: Reportedon 04/26/2021 ) tiotropium (SPIRIVA WITH HANDIHALER) 18 mcg inhalation capsule Inhale 1 capsule as instructed once daily. Use with handihaler. albuterol HFA (PROAIR HFA) 90 mcg/actuation inhaler Inhale 2 Puffs as instructed every 4 hours as needed for Wheezing/Shortness of Breath. No current facility-administered medications on file prior to visit. Social History Social History Tobacco Use Smoking status: Former Smoker Packs/day: 2.00 Years: 40.00 Pack years: 80.00 Types: Cigarettes Start date: 11/08/1962 Quit date: 05/13/2002 Years since quittin.3 Smokeless tobacco: Never Used Vaping Use Vaping Use: Never used Substance Use Topics Alcohol use: Not Currently Alcohol/week: 3.0 standard drinks Types: 3 Cans of beer per week Comment: light beer Drug use: No Frequency: 5.0 times per week EXAM: BP 128/74 (BP Site: Right Arm, BP Position: Sitting, BP Cuff Size: Regular Adult) Pulse 80 Resp20 Wt 82.5 kg (181 lb 12.8 oz) BMI 26.09 kg/m General Appearance: Well appearing, alert, in no acute distress, well-hydrated, well nourished.. Skin: elzbieta keratosis to scalp. Lungs: Lungs clear to auscultation. No wheezing, rhonchi, rales.. Heart: RRR without murmur, gallop, or rubs. No ectopy. Health Maintenance List DTAP,TDAP,TD(1 - Tdap) Never done SHINGRIX VACCINE(1 of 2) Never done LDL CHOLESTEROL due on 01/31/2021 ADVANCE DIRECTIVE DISCUSSION Never done COVID-19 VACCINE(4 - Booster for Pfizer series) due on 06/07/2021 DEPRESSION SCREENING due on 04/26/2022 ANNUAL PCP TEAM CHRONIC DISEASE VISIT due on 06/04/2022 BP CONTROLLED (<130/80) due on 07/19/2022 DIABETES SCREEN due on 07/15/2024 SPIROMETRY Completed INFLUENZA Completed PNEUMOCOCCAL: 65+ Completed Data reviewed none ASSESSMENT/PLAN: 1. Chronic obstructive pulmonary disease with acute exacerbation (HCC) - ICD9: 491.21, ICD10: J44.1(primary diagnosis) Continue current medications. Follow with Pulm 2. Essential hypertension - ICD9: 401.9, ICD10: I10 - good control - Continue current medication(s) - Recommend home blood pressure monitoring, to bring results in on next visit - Goal of BP <140/90 3. Anxiety - ICD9: 300.00, ICD10: F41.9 Controlled Continue current medications. 4. Squamous carcinoma of lung, left (HCC) - ICD9: 162.9, ICD10: C34.92 Follow with Oncology 5. Coronary artery disease involving [place] coronary artery of [place] heart without angina pectoris- ICD9: 414.01, ICD10: I25.10 Follow with Cardiology Follow up in 3 months Medical Decision Making: Problems: Moderate: 2+ stable chronic illnesses Risk: Moderate: Drug management Medical Decision Making Level: 4 - Moderate Mei Cummins MD documented in this encounterPromedica [facility] Hospital07-06-2022 Miscellaneous Notes* Telephone Encounter - Rosalie Latif LPN - 09/04/2021 10:43 AM EDT Clearance form received from [facility], [facility]. Form placed in Dr. Manzano's door box. Rosalie Latif LPN documented in this encounterPromedica [facility] Hospital06-22-2022 Miscellaneous Notes* Telephone Encounter - Jamshid Brown APRN.LEGAL STENOGRAPHER - 08/21/2021 9:22 AM EDT The following approved medication requests have been transmitted electronically. Pending Prescriptions Disp Refills ATORVASTATIN 20 MG TABLET 90 tablet 3 Sig: TAKE 1 TABLET BY MOUTH EVERY DAY KIERAN: Yes Jamshid Brown APRN.CNP * Telephone Encounter - Felicity Eastman LPN - 08/21/2021 8:48 AM EDT Patient has been identified by name and date of : Yes Pharmacy phones for refill(s): Pending Prescriptions Disp Refills ATORVASTATIN 20 MG TABLET 90 tablet 3 Sig: TAKE 1 TABLET BY MOUTH EVERY DAY KIERAN: Yes Date of last office visit in primary care: 06/04/21 next apt 09/04/21 Last 2 Encounter Wt Readings: Date: Wt: 07/19/2021 82.8 kg (182 lb 8 oz) 06/04/2021 82.1 kg (181 lb) Previous labs/tests for medication: Cholesterol: HDL Cholesterol (mg/dL) Date Value 02/01/2020 37 LDL Cholesterol (mg/dL) Date Value 02/01/2020 77 ALT (U/L) Date Value 07/15/2021 11 04/23/2021 11 Non HDL Cholesterol (mg/dL) Date Value 02/01/2020 108 Please advise. Thank you. Felicity Eastman LPN documented in this encounterPromedica Memorial Hospital05-23-2022 Miscellaneous Notes* Telephone Encounter - Malu Tavares Ma - 07/22/2021 11:34 AM EDT The following approved medication requests have been transmitted electronically. Signed Prescriptions Disp Refills LORazepam (ATIVAN) 1 mg tablet 90 tablet 2 Sig: Take 1 tablet by mouth three times daily for 90 days. DRE Class: C-IV KIERAN: No Authorizing Provider: MEI CUMMINS Ma * Telephone Encounter - Mei Cummins MD - 07/22/2021 11:22 AM EDT OK to refill as ordered Mei Cummins MD * Telephone Encounter - Erica Hunt LPN - 07/22/2021 11:15 AM EDT Patient phones requesting refills as follows: Pending Prescriptions Disp Refills LORAZEPAM 1 MG TABLET 90 tablet 2 Sig: Take 1 tablet by mouth three times daily for 90 days. DRE Class: C-IV KIERAN: No JOSE M-06/04/21 Labs-07/15/21 NOV-09/14/21 med filled 04/22/21 ends 07/21/21 Please review and advise. 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 HPI: The patient is a 80-year-old male with a past medical history significant for hyperlipidemia, hypertension, AAA, coronary artery disease (CABG x3 vessels), COPD and prostate cancer. Patient underwent a CT scan of the abdomen which incidentally revealed the presence of the left lower lobe lung nodule which was not previously observed on a CT chest from 2016. He therefore underwent a CT of the chest on 01/17/2020. That study demonstrated stable appearing scarring in the right lower lobe unchanged from previous study in 2013. There was scarring and nodularity left upper lobe aswell as a focal mass in the left lower lobe measuring 1.4 x 1.1 x 1.0 cm. He underwent a CT-guided biopsy on 01/27/2020. Evidently the tissue was nondiagnostic and the patient developed a pneumothorax. He was transferred to [facility], [place]. PET scan 02/17/2020 done at [facility] demonstrated a 1.2 cm spiculated nodule in the periphery of the left lower lobe with intense FDG uptake. There was a small to moderate sized loculated pleural effusion along the lateral aspect of the left hemithorax. There was also moderately intense focal FDG accumulation along the posterior periphery of the prostate intensity uptake was suspicious for malignancy. There is a 3.4 cm infrarenal abdominal aortic aneurysm. Uderwent a left thoracoscopy with conversion to mini thoracotomy, evacuation of pleural effusion along with wedge resection of the left lower lobe lung mass including frozen section on 02/20/2020. Pathology: Moderately differentiated squamous cell carcinoma extending to the inked parenchymal margin. Pleural biopsy demonstrated fibrous tissue with hemorrhage and background blood clot. Synoptic report reviewed in care everywhere. Briefly overall tumor size was 1.1 x 0.9 x 0 point centimeter. It was a single focus of disease. No invasion to adjacent structures. Lymphovascular invasion was not identified bronchial and vascular margins were not applicable and the parenchymal margin was positive for invasive carcinoma. No lymph nodes observed in the specimen. Completed RT to the left lower lung on 05/21/2020. He was hospitalized on July 09 for pneumonia/exacerbation of COPD. Couple days prior to that he had sudden worsening of his chronic dyspnea. He underwent repeat CT chest on 08/10/2020. The study demonstrated tree-in-bud formation concerning for multifocal pneumonia in the right lung with a left apical pulmonary nodule with internal cavitation. Underwent bronchoscopy on 08/14. Lavage was performed. Cultures grew MSSA and Streptococcus mitis. He was treated with antimicrobials due to decompensated respiratory status and manage with prednisone as well. He had improvement in symptoms. Presents for ongoing oncologic management. Interim history: Still having pain in and around thoracotomy site. Tender. Tried gabapentin but mad him to sleepy/disoriented so he stopped it. Prefers Excedrin and is taking 1-3 tablets a day. No other subjective change in respiratory status except dyspnea a little worse due to more humid weather. PMH, medications and allergies personally reviewed by me today. Any changes documented in appropriate section. ROS: Constitutional: Denies episodes of fever and night sweats. Normal appetite. Neuro: Denies CERON, vertigo, dizziness and imbalance. Denies symptoms of neuropathy. HEENT: No recent change in voice, vision or hearing. Resp: See above. CVS: Denies exertional chest pain, PND, orthopnea and LE edema. GI: Denies dysgeusia. Denies symptoms of stomatitis. Denies dysphagia and odynophagia. Denies reflux, n/v, change in bowel habits and abdominal pain. : Denies dysuria or gross hematuria. Endo: Denies hot flashes. Denies polyuria and polydipsia. Denies heat and cold intolerance. Musculoskeletal: See above. Derm: Denies rash. Denies jaundice and diffuse pruritis. Heme: Denies unusual bleeding and unexplained bruising. Psych: Normal mood. PHYSICAL EXAM: Vitals: Blood pressure 125/74, pulse 91, temperature 36.5 C (97.7 F), weight 82.8 kg (182 lb 8 oz),SpO2 100 %. Well-appearing and in no acute distress. EYES: Sclerae are anicteric bilaterally. NECK: Supple. LYMPHATIC: There is no palpable cervical or supraclavicular adenopathy. RESPIRATORY: Inspiratory breath sounds are of very diminished intensity in all [place]. CARDIOVASCULAR: Rhythm is regular. ABDOMEN: The abdomen is nondistended. Extremities: No swelling or edema. SKIN: No jaundice or rash. No petechiae. MS: There is a palpable defect in the left rib in the posterior axillary line. Tender. ASSESSMENT/PLAN: (C33, C34.80) Cancer of trachea, bronchus, and lung (HCC) (primary encounter diagnosis) Assessment: -In summary the patient is a 80-year-old male with a past medical history significant for advanced/severe COPD and prostate cancer who underwent a wedge resection for diagnostic and therapeutic purposes of a left lower lobe lung nodule. 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 -He received adjuvant radiation. -PET in July revealed new area along left pleura with some increase in FDG uptake not meeting criteria for viable neoplasm. -Reviewed CT scan results with him. The 6 mm nodule in the left apex is stable. I personally reviewed images with him and his . -He is having recurrence of neuropathic pain of the left chest wall. Plan: -Referral to Dr. Hsieh for opinion on costal nerve block. -Otherwise repeat CT chest in about 4 months. -He will follow-up with his other healthcare providers for management of COPD and other healthcare needs. Portions of this documentation were copied and pasted from previous office visit notes in order to provide a cohesive continuity of the history. The note has been reviewed and edited and updated as necessary. Salazar Meraz DO documented in this encounterPromedica Memorial Hospital05-16-2022 History of Present illness Narrative* RT Delvis(R) - 07/15/2021 11:20 AM EDT Radiology Service Progress Note DATE OF SERVICE: July 15, 2021 TIME: 1:33 PM PATIENT IDENTITY VERIFICATION COMPLETED USING TWO (2) STANDARD IDENTIFIERS: Name and Date of confirmed by patient verbally. FALL SCREENING: Has the patient had 2 falls in the last year or 1 fall with injury or currently using an Ambulatory Assistive Device (Walker, Cane, Wheelchair, Crutches, etc.)? No PATIENT GENDER DATA: Male PATIENT RELEVANT IMPLANT DATA REVIEWED: Yes ALLERGIES: Reviewed and unchanged CONTRAST ALLERGY: NO. EXAM: CT -CONTRAST INDUCED NEPHROPATHY RISK FACTORS: Patient age > 60 years CREATININE: Creatinine Date Value Ref Range Status 07/15/2021 1.03 0.73 - 1.22 mg/dL Final 04/23/2021 1.03 0.73 - 1.22 mg/dL Final 11/07/2020 0.88 0.73 - 1.22 mg/dL Final Estimated Glomerular Filtration Rate Date Value Ref Range Status 07/15/2021 74 >=60 mL/min/1.73m Final Comment: Estimated Glomerular Filtration Rate (eGFR) is calculated using the 2020 CKD-EPI creatinine equation. This equation utilizes serum creatinine, sex, and age as parameters. The creatinine assay has traceable calibration to isotope dilution- mass spectrometry. Refer to KDIGO guidelines for clinical interpretation. In patients with unstable renal function, e.g. those with acute kidney injury, the eGFRmay not accurately reflect actual GFR. eGFR- Date Value Ref Range Status 04/23/2021 >60 Final P.O.C.T. RESULTS: POC done: Yes, See Lab Tab July 15, 2021 TREATMENT: N/A PERIPHERAL IV DATA: Ambulatory: A peripheral IV was started in the Left antecubital site with a Angio cath: 22 gauge. RADIOLOGY DEPARTMENT: CT; Exam(s) Completed: Chest SIGNATURE: RT Joey(R) PATIENT NAME: Oswaldo Corley DATE: July 15, 2021 TIME: 1:33 PM documented in this encounterPromedica Memorial Hospital04-05-2022 History of Present illness Narrative* Mei Cummins MD - 06/04/2021 3:40 PM EDT Chief Complaint Patient presents with: F/U 3 Month HPI Oswaldo Corley is a 80 year old male who presents here today for 3 month follow up. Here today with his for a 3 month follow up. No bowel, Gi, or urinary issues. Using Flomax 0.4 mg daily. Depression/SILVER: Takes Ativan 1 mg, half to 1 tablets daily to TID at bedtime and Cymbalta 30 mg daily. Constantly worrying. Reports his medication keeps him pretty stable. Follows with Palliative Care every 2-3 months, Karla. HTN: Checks BP occ at home, only if he suspects it's off. Follows with Dr. Manzano, Cardio. Pt is not on any BP medications currently. Occasional chest pain and dizziness. Has sob due to COPD. Has discussed his low pulse rate with Cardiology. Previously used to have very elevated HR. Denies any issues. Lipid: Taking Lipitor 20 mg daily. Watches diet by counting calories in order to maintain. Unable to exercise due to COPD. COPD: Follows with Dr. Rajinder Cloud, next appt 08/07/21. Taking Prednisone 10 gm daily, Spiriva inhaler daily, Mucinex BID, ProAir inhaler prn, and Symbicort inhaler BID. Uses Oxygen 2.5-3 L daily from [employer]. Does wear a chest that vibrates he wears this every morning. Checking his O2 levels at home. Typically uses the oxygen when he is exerting himself or outside the home. Does make note that he has some grayish pink sputum when coughing. Overall feels that his coughing was doing better. 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 Dr. Meraz has given him Gabapentin 100 mg TID for left sided skin pain since having surgery. He admits he's not started the medication due to the flyer scaring him with all the side effects. He plans on working himself up to starttaking it. Pain: Has been treated with Tramadol 50 mg in the past, but no longer taking. Recently given Gabapentin [address] Meraz. Fell back in August of 2020 and cracked a rib. Denies any other falls and healed up. Past medical history, appointments, medications, allergies reviewed. Previous Medical History PAST MEDICAL HISTORY Diagnosis Date Abdominal aortic aneurysm (AAA) without rupture (HCC) 11/19/2018 Atypical chest pain CAD (coronary artery disease) s/p CABG 1999, PCI w/ stents COPD (chronic obstructive pulmonary disease) (HCC) Hyperlipidemia Hyperlipidemia Hypertension Prostate cancer (HCC) Dx Dec 2014, s/p radiation, on hormonal therapy Previous Surgical History PAST SURGICAL HISTORY Procedure Laterality Date LUNG BIOPSY Left needle biopsy LUNG SURGERY HX 02/20/20 lt lung nodule removed PAST SURGICAL HISTORY OF TURP PAST SURGICAL HISTORY OF 03/02/1999 triple bypass Family History FAMILY HISTORY Problem Relation Age of Onset Cancer Mother breast, bone Cancer Sister breast Emphysema Sister Smoker Diabetes Father Heart Father Diabetes Brother Heart Brother other (Other) Brother Parkinsons Diabetes Paternal Grandmother Heart Paternal Grandmother Patient Allergies ALLERGIES Allergen Reactions Imdur [Isosorbide M* Hives Black out and dizziness Current Medications Current Outpatient Medications on File Prior to Visit Medication Sig gabapentin (NEURONTIN) 100 mg capsule Take 1 capsule by mouth three times daily for 90 days. LORazepam (ATIVAN) 1 mg tablet Take 1 tablet by mouth three times daily for 90 days. budesonide-formoterol (SYMBICORT) 160-4.5 mcg/actuation inhaler Inhale 2 Puffs as instructed twice daily. clopidogrel (PLAVIX) 75 mg tablet Take 1 tablet by mouth once daily. tamsulosin (FLOMAX) 0.4 mg Take 0.4 mg by mouth once daily. predniSONE (DELTASONE) 10 mg tablet Take 10 mg by mouth once daily. guaiFENesin (MUCINEX) 600 mg 12 hr tablet Take 2 tablets by mouth twice daily. nitroglycerin sublingual (NITROSTAT) 0.4 mg SL tablet Dissolve 1 tablet under the tongue every 5 minutes as needed. atorvastatin (LIPITOR) 20 mg tablet Take 1 tablet by mouth once daily. DULoxetine (CYMBALTA) 30 mg capsule 1 capsule once daily. ondansetron (ZOFRAN) 4 mg tablet 1 tablet as needed. traMADol (ULTRAM) 50 mg tablet Take 50 mg by mouth every 6 hours as needed. aspirin, enteric coated (ASPIRIN, ENTERIC COATED) 81 mg EC tablet Take 81 mg by mouth once daily. DULERA 200-5 mcg/actuation inhaler Take 2 Puffs by mouth twice daily. (Patient not taking: Reportedon 04/26/2021 ) tiotropium (SPIRIVA WITH HANDIHALER) 18 mcg inhalation capsule Inhale 1 capsule as instructed once daily. Use with handihaler. albuterol HFA (PROAIR HFA) 90 mcg/actuation inhaler Inhale 2 Puffs as instructed every 4 hours as needed for Wheezing/Shortness of Breath. No current facility-administered medications on file prior to visit. Social History Social History Tobacco Use Smoking status: Former Smoker Packs/day: 2.00 Years: 40.00 Pack years: 80.00 Types: Cigarettes Start date: 11/08/1962 Quit date: 05/13/2002 Years since quittin.0 Smokeless tobacco: Never Used Vaping Use Vaping Use: Never used Substance Use Topics Alcohol use: Not Currently Alcohol/week: 3.0 standard drinks Types: 3 Cans of beer per week Comment: light beer Drug use: No Frequency: 5.0 times per week EXAM: BP 138/76 (BP Site: Left Arm, BP Position: Sitting, BP Cuff Size: Regular Adult) Pulse (!) 52 Resp 28 Wt 82.1 kg (181 lb) BMI 25.97 kg/m General Appearance: Well appearing, alert, in no acute distress, well-hydrated, well nourished.. Lungs: Lungs clear to auscultation. No wheezing, rhonchi, rales.. Heart: RRR without murmur, gallop, or rubs. No ectopy. Musculoskeletal: Left side evaluated, pain to palpitate. Possible scar tissue from surgery. Health Maintenance List HEPATITIS C SCREENING Never done BP CONTROLLED (<130/80) Never done DTAP,TDAP,TD(1 - Tdap) Never done SHINGRIX VACCINE(1 of 2) Never done LDL CHOLESTEROL due on 01/31/2021 ADVANCE DIRECTIVE DISCUSSION Never done ANNUAL PCP TEAM CHRONIC DISEASE VISIT due on 03/06/2022 DEPRESSION SCREENING due on 04/26/2022 DIABETES SCREEN due on 04/23/2024 SPIROMETRY Completed INFLUENZA Completed PNEUMOVAX AGE 65 AND OVER WITH 5YR LOOKBACK Completed COVID-19 VACCINE Completed MENINGOCOCCAL CONJUGATE Aged Out Data reviewed Epic ASSESSMENT/PLAN: 1. Anxiety - ICD9: 300.00, ICD10: F41.9 (primary diagnosis) - Overall stable on current regimen - Continue current medication regimen. 2. Depression, unspecified depression type - ICD9: 311, ICD10: F32.A - Stable on current regimen - Continue current medication regimen. 3. Hypertrophy of prostate with urinary obstruction - ICD9: 600.01, 599.69, ICD10: N40.1, N13.8 - Continue current medication regimen. 4. Coronary artery disease involving [place] coronary artery of [place] heart without angina pectoris- ICD9: 414.01, ICD10: I25.10 - Stable - Cont f/u with Cardio and medication 5. Essential hypertension - ICD9: 401.9, ICD10: I10 - good control - Cont monitoring HR - Continue current medication(s) - Recommended regular aerobic exercise. - Recommend home blood pressure monitoring, to bring results in on next visit - Goal of BP <130/80 6. Hyperlipidemia, mixed - ICD9: 272.2, ICD10: E78.2 - good control - Continue current medication. - Encouraged following a low fat, low cholesterol diet. 7. Chronic obstructive pulmonary disease with acute exacerbation (HCC) - ICD9: 491.21, ICD10: J44.1 - With sputum color change and no other symptoms, continue to monitor - Follow up with Pulmonary - Continue current medication regimen. 8. Squamous carcinoma of lung, left (HCC) - ICD9: 162.9, ICD10: C34.92 - Cont f/u with Hem/Onc 9. Rib pain on left side - ICD9: 786.50, ICD10: R07.81 - discussed this could be scar tissue related - Okay to take Gabapentin as recommended by Dr. Meraz - Discussed taking up to TID, but can adjust. 3 mo f/u I agree with the Chief Complaint, ROS, and Past Histories independently gathered by the clinical product support technician and the remaining scribed note accurately describes my personal service to the patient. Medical Decision Making: Problems: Moderate: 2+ stable chronic illnesses Risk: Moderate: Drug management Medical Decision Making Level: 4 - Moderate Mei Cummins MD The documentation for this note was completed by Vickie Carrillo Ma acting as scribe for Mei Cummins MD. June 04, 2021 3:59 PM. Vickie Gerardo Mahmood documented in this encounterProm[facility]03-29-2022 Miscellaneous Notes* Telephone Encounter - Alethea Alejandra Pss - 05/28/2021 3:37 PM EDT relayed message to spouse * Telephone Encounter - Donna Bell LPN - 05/28/2021 3:00 PM EDT Left message for pt to return call. Donna Bell LPN * Telephone Encounter - Salazar Meraz DO - 05/28/2021 2:42 PM EDT Rx sent. Recommend that he start by taking it at bedtime only for 2 nights in a row then twice daily on days 3 and 4 then 3 times daily thereafter. If no relief of pain within a week or so, we can consider increasing the dose. Salazar Meraz DO * Telephone Encounter - Donna Bell LPN - 05/28/2021 10:48 AM EDT Pt was in today to see Chari Velez CNP. She is requesting a refill of Neurontin. She states he spoke to you about his nerve pain from a wedge resection left lower lung at his last OV with you. He has a follow up with you 07/19/21. Please advise. Donna Bell LPN documented in this encounterPromedica [facility]09-09-2021 Miscellaneous Notes* Telephone Encounter - Rosalinda Stapleton - 11/08/2020 8:24 AM EDT Lm or pt to call back for information. Rosalinda Stapleton * Telephone Encounter - Salazar Meraz DO - 11/08/2020 6:26 AM EDT Can let him know the CT shows some improvement in the post-operative changes with no obvious sign of cancer recurrence. Will update him once PET completed. Salazar Meraz DO documented in this encounterPromedica Memorial Hospital08-05-2021 History of Present illness Narrative* Catrachita Rogers RT(R) - 10/04/2020 12:20 PM EDT Radiology Service Progress Note PATIENT NAME: Oswaldo Corley DATE OF SERVICE: October 04, 2020 TIME: 12:19 PM PATIENT IDENTITY VERIFICATION COMPLETED USING TWO (2) IDENTIFIERS: Name and Date of confirmedby patient verbally. FALL SCREENING: Has the patient had 2 falls in the last year or 1 fall with injury or currently using an Ambulatory Assistive Device (Walker, Cane, Wheelchair, Crutches, etc.)? No PATIENT GENDER DATA: Male PATIENT RELEVANT IMPLANT DATA REVIEWED: Yes RADIOLOGY DEPARTMENT: General X-ray: Exam(s) Completed: Chest X-Ray PERIPHERAL IV DATA: Not applicable SIGNED BY: RT Lizeth(R) October 04, 2020 12:19 PM documented in this encounterPromedica [facility] Hospital02-06-2021 NoteDischarge Summary Oswaldo Corley : 1940 ADMIT DATE: 04/05/2020 DISCHARGE DATE: 04/07/2020 PRIMARY CARE PHYSICIAN: Mei Cummins VISIT STATUS: Admission CODE STATUS: Full Code DISCHARGE DIAGNOSES: Active Problems: Shortness of breath Resolved Problems: * No resolved hospital problems. * Acute respiratory insufficiency secondary to chronic obstructive pulmonary disease exacerbation acute exacerbation of chronic obstructive pulmonary disease hypertension chronic obstructive pulmonary disease hyperlipidemia status post wedge resection of left lower lobe mass squamous cell carcinoma chronic nocturnal home oxygen loculated pneumothorax HOSPITAL COURSE: Oswaldo is a 79 y.o. male with past medical history -lung nodule, aortic aneurysm, chronic obstructive pulmonary disease, coronary artery disease, on nocturnal oxygen, presented to the emergency room from [facility] for shortness of breath. Patient underwent flexible bronchoscopy, thoracoscopy converted to left open thoracotomy and wedge resection of left lower lobe 02/19. Postoperative complicated by a persistent air leak., Instillation of talc 02/24 discharged on 03/03/20. pt reports to having short of breath for the last 3 days, also pain in the left side of the chest related patient had the surgery. Found to be tachycardic in the emergency room troponins less than 0.01, room air oxygen saturations were 96% CT chest revealed concern for pneumothorax versus trapped lung. Was seen by cardiothoracic surgery consult recommended no surgical intervention admitted to the medicine service pertinent labs troponin less than 0.01. Patient placed on oxygen, nebulization treatments, IV steroids. Seen by and followed by cardiothoracic surgery, recommended no surgical intervention. Seen by pulmonary consult. Patient weaned off oxygen. Uses oxygen at home in the night. Patient feeling better. No shortness of breath. Pain in the chest improved with anti-inflammatory. Patient cleared by pulmonary and cardiothoracic surgery for discharge home. Patient is independently ambulating without any difficulty. Recheck home oxygen eval. Discharge home today. Vital signs reviewed stable lungs diminished breath sounds on the left side heart S1-S2 normal abdomen soft nontender bowel sounds present no leg edema bilaterally discharge home today follow-up as recommended SIGNIFICANT DIAGNOSTIC STUDIES: CT chest CONSULTANTS: CTS, pulmonary DISCHARGE MEDICATIONS: [place] brig[place] Home Medication Instructions [facility]:[id number] Printed on:04/07/20 1300 Medication Information albuterol sulfate HFA 108 (90 Base) MCG/ACT inhaler aspirin 81 MG EC tablet Take 81 mg by mouth daily atorvastatin (LIPITOR) 20 MG tablet Take 20 mg by mouth daily benzonatate (TESSALON) 100 MG capsule Take 1 capsule by mouth 3 times daily as needed for Cough clopidogrel (PLAVIX) 75 MG tablet Take 75 mg by mouth daily Last dose on February 01 DULERA 200-5 MCG/ACT inhaler Inhale 200 mcg into the lungs guaiFENesin 400 MG tablet Take 400 mg by mouth 2 times daily as needed lisinopril (PRINIVIL;ZESTRIL) 5 MG tablet TAKE 1 TABLET BY MOUTH EVERY DAY LORazepam (ATIVAN) 1 MG tablet 3 times daily as needed. metoprolol tartrate (LOPRESSOR) 50 MG tablet Take 25 mg by mouth 2 times daily Naproxen Sodium (ALEVE PO) Take by mouth ondansetron (ZOFRAN) 4 MG tablet Take 1 tablet by mouth 2 times daily as needed for Nausea or Vomiting polyethylene glycol (MIRALAX) 17 g packet Take 17 g by mouth daily In morning predniSONE (DELTASONE) 10 MG tablet Prednisone take 40 mg po daily for 1days then take 30 mg p.o. daily for 2 days Then take 20 mg po daily for 2 days Then take 10 mg po daily for 2 days SPIRIVA RESPIMAT 2.5 MCG/ACT AERS inhaler INAHLE 2 INHALATION EVERY 24 HOURS ADMINISTER AT APPROXIMATELY THE SAME TIME(S) EACH DAY tamsulosin (FLOMAX) 0.4 MG capsule Take 0.4 mg by mouth daily DIET: DIET GENERAL; ACTIVITY: No restriction. up with assist COMPLEXITY OF FOLLOW UP: [] Moderate Complexity: follow up within 7-14 calendar days (30270) [] Severe Complexity: follow up within 7 calendar days (88209) FOLLOW UP TESTING, PENDING RESULTS OR REFERRALS AT TRANSITIONAL CARE VISIT: [] Yes [] No PENDING STUDIES: No DISPOSITION: Home FACILITY/HOME CARE AGENCY NAME: Follow up with Mei Cummins [address] [facility] [phone] Schedule an appointment as soon as possible for a visit Dano Wells MD [address] [place] [phone] on INSTRUCTIONS TO MA/SW: Please call patient on day after discharge (must document patient contacted within 2 business days of discharge). FOLLOW UP QUESTIONS FOR MA/SW: 1. Did you get medications filled and taking them as instructed from discharge? 2. Are you foll (more content not included)...[facility]01-02[facility] Note Discharge Summary Oswaldo Corley : 1940 ADMIT DATE: 02/20/2020 DISCHARGE DATE: 03-03-2020 PRIMARY CARE PHYSICIAN: Mei Cummins VISIT STATUS: Admission CODE STATUS: Full Code DISCHARGE DIAGNOSES: Active Problems: Lung nodule Urinary retention Resolved Problems: * No resolved hospital problems. * HOSPITAL COURSE: Patient presented on 02/20/2020. He underwent: Procedure: 1. Flexible bronchoscopy 2. Left Video-assisted thoracoscopy converted to left open thoracotomy 3. Wedge resection of left lower lobe mass Post operatively, he had a persistent air leak without complete lung re-expansion. He had a known pneumothorax and pleural effusion pre-op from an attempted biopsy of the lung nodule. He had a bedside talc slurry to help with his air leak. After a few days, there was much improvement and the air leak was minimally intermittent. He also had urinary retention that required multiple straight caths and a urology consult. A suazo was placed, then removed on 03/01 in anticipation of discharge. He had elevated PVRs. One chest tube was removed and the other was switched to a pneumostat that was DC prior dispo home. He has not had a BM but is passing gas and is not distended. He was also DC with home O2 PRN as he desats with exertion. PROBLEM LIST: Patient Active Problem List Diagnosis ? Lung nodule ? Urinary retention DISCHARGE MEDICATIONS: Oswaldo Corley Home Medication Instructions [facility]:[id number] Printed on:03/02/20 0816 Medication Information albuterol (PROVENTIL) (2.5 MG/3ML) 0.083% nebulizer solution Take 2.5 mg by nebulization every 6 hours as needed for Wheezing albuterol sulfate HFA 108 (90 Base) MCG/ACT inhaler aspirin 81 MG EC tablet Take 81 mg by mouth daily atorvastatin (LIPITOR) 20 MG tablet Take 20 mg by mouth daily clopidogrel (PLAVIX) 75 MG tablet Take 75 mg by mouth daily Last dose on February 01 DULERA 200-5 MCG/ACT inhaler Inhale 200 mcg into the lungs guaiFENesin 400 MG tablet Take 400 mg by mouth as needed lisinopril (PRINIVIL;ZESTRIL) 5 MG tablet TAKE 1 TABLET BY MOUTH EVERY DAY LORazepam (ATIVAN) 1 MG tablet 3 times daily as needed. metoprolol tartrate (LOPRESSOR) 50 MG tablet Take 25 mg by mouth 2 times daily ondansetron (ZOFRAN) 4 MG tablet Take 1 tablet by mouth 2 times daily as needed for Nausea or Vomiting polyethylene glycol (GLYCOLAX) 17 GM/SCOOP powder Take 17 g by mouth daily Can reduce once bowel pattern is regular senna (SENOKOT) 8.6 MG tablet Take 1 tablet by mouth 2 times daily Can reduce once bowel pattern is regular SPIRIVA RESPIMAT 2.5 MCG/ACT AERS inhaler INAHLE 2 INHALATION EVERY 24 HOURS ADMINISTER AT APPROXIMATELY THE SAME TIME(S) EACH DAY tamsulosin (FLOMAX) 0.4 MG capsule Take 0.4 mg by mouth daily traMADol (ULTRAM) 50 MG tablet Take 1 tablet by mouth every 4 hours as needed for Pain for up to 7 days. Intended supply: 7 days. Take lowest dose possible to manage pain DIET: DIET GENERAL; ACTIVITY: No heavy lifting. WOUND CARE: keep wound clean and dry, reinforce dressing PRN and ice to area for comfort OTHER INSTRUCTIONS: see d/c instructions. Empty the pneumostat canister with a syringe when it is full. BMI CLASSIFICATION: - Body mass index is 26.45 kg/m?. - Overweight (BMI 25.0-29.9) DISPOSITION: Home FACILITY/HOME CARE AGENCY NAME: MARY ELLEN Follow up with Dr Herrmann within 2 weeks the office will call the patient to schedule.[facility] of Past illness Narrative* Problem Noted Date Resolved Date 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 09/05/2019 documented as of this encounter (statuses as of 05/28/2021) [facility] of [facility] illness Narrative* Problem Noted Date Resolved Date 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 09/05/2019 documented as of this encounter (statuses as of 06/05/2021) [facility] of [facility] illness Narrative* Problem Noted Date Resolved Date 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 09/05/2019 documented as of this encounter (statuses as of 07/13/2021) [address]21-2017 History of Past illness Narrative* Problem Noted Date Resolved Date 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 09/05/2019 documented as of this encounter (statuses as of 07/16/2021) [address]21-2017 History of Past illness Narrative* Problem Noted Date Resolved Date 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 09/05/2019 documented as of this encounter (statuses as of 07/19/2021) [address]2017 History of Past illness Narrative* Problem Noted Date Resolved Date 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 09/05/2019 documented as of this encounter (statuses as of 07/22/2021) [address]-2017 History of Past illness Narrative* Problem Noted Date Resolved Date 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 09/05/2019 documented as of this encounter (statuses as of 08/21/2021) [address]-2017 History of Past illness Narrative* Problem Noted Date Resolved Date 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 09/05/2019 documented as of this encounter (statuses as of 09/04/2021) [address]-2017 History of Past illness Narrative* Problem Noted Date Resolved Date 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 09/05/2019 documented as of this encounter (statuses as of 09/04/2021) [address]-2017 History of Past illness Narrative* Problem Noted Date Resolved Date 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 09/05/2019 documented as of this encounter (statuses as of 10/13/2021) [address]-2017 History of Past illness Narrative* Problem Noted Date Resolved Date 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 09/05/2019 documented as of this encounter (statuses as of 11/13/2021) [address]-2017 History of Past illness Narrative* Problem Noted Date Resolved Date 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 09/05/2019 documented as of this encounter (statuses as of 11/17/2021) [address]2017 History of Past illness Narrative* Problem Noted Date Resolved Date 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 09/05/2019 documented as of this encounter (statuses as of 11/19/2021) [address]2017 History of Past illness Narrative* Problem Noted Date Resolved Date 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 09/05/2019 documented as of this encounter (statuses as of 11/21/2021) [address]2017 History of Past illness Narrative* Problem Noted Date Resolved Date 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 09/05/2019 documented as of this encounter (statuses as of 11/25/2021) [address]2017 History of Past illness Narrative* Problem Noted Date Resolved Date 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 09/05/2019 documented as of this encounter (statuses as of 12/16/2021) [address]2017 History of Past illness Narrative* Problem Noted Date Resolved Date 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 09/05/2019 documented as of this encounter (statuses as of 01/24/2022) [address]2017 History of Past illness Narrative* Problem Noted Date Resolved Date 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 09/05/2019 documented as of this encounter (statuses as of 01/29/2022) [address]2017 History of Past illness Narrative* Problem Noted Date Resolved Date 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 09/05/2019 documented as of this encounter (statuses as of 02/04/2022) [address]-2017 History of Past illness Narrative* Problem Noted Date Resolved Date 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 09/05/2019 documented as of this encounter (statuses as of 02/14/2022) [address]-2017 History of Past illness Narrative* Problem Noted Date Resolved Date 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 09/05/2019 documented as of this encounter (statuses as of 02/19/2022) [address]2017 History of Past illness Narrative* Problem Noted Date Resolved Date 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 09/05/2019 documented as of this encounter (statuses as of 02/21/2022) [address]-2017 History of Past illness Narrative* Problem Noted Date Resolved Date 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 09/05/2019 documented as of this encounter (statuses as of 03/06/2022) [address]-2017 History of Past illness Narrative* Problem Noted Date Resolved Date 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 09/05/2019 documented as of this encounter (statuses as of 03/07/2022) [address]-2017 History of Past illness Narrative* Problem Noted Date Resolved Date 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 09/05/2019 documented as of this encounter (statuses as of 03/14/2022) [address]-2017 History of Past illness Narrative* Problem Noted Date Resolved Date 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 09/05/2019 documented as of this encounter (statuses as of 03/19/2022) [address]-2017 History of Past illness Narrative* Problem Noted Date Resolved Date 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 09/05/2019 documented as of this encounter (statuses as of 03/28/2022) [address]-2017 History of Past illness Narrative* Problem Noted Date Resolved Date 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 09/05/2019 documented as of this encounter (statuses as of 04/01/2022) [address]-2017 History of Past illness Narrative* Problem Noted Date Resolved Date 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 09/05/2019 documented as of this encounter (statuses as of 04/16/2022) [address]-2017 History of Past illness Narrative* Problem Noted Date Resolved Date 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 09/05/2019 documented as of this encounter (statuses as of 04/17/2022) [address]-2017 History of Past illness Narrative* Problem Noted Date Resolved Date 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 09/05/2019 documented as of this encounter (statuses as of 04/24/2022) [address]21-2017 History of Past illness Narrative* Problem Noted Date Resolved Date 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 09/05/2019 documented as of this encounter (statuses as of 04/25/2022) [address]-2017 History of Past illness Narrative* Problem Noted Date Resolved Date 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 09/05/2019 documented as of this encounter (statuses as of 04/30/2022) [address]21-2017 History of Past illness Narrative* Problem Noted Date Resolved Date 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 09/05/2019 documented as of this encounter (statuses as of 05/01/2022) [address]21-2017 History of Past illness Narrative* Problem Noted Date Resolved Date 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 09/05/2019 documented as of this encounter (statuses as of 05/12/2022) [address]21-2017 History of Past illness Narrative* Problem Noted Date Resolved Date 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 09/05/2019 documented as of this encounter (statuses as of 05/20/2022) [address]21-2017 History of Past illness Narrative* Problem Noted Date Resolved Date 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 09/05/2019 documented as of this encounter (statuses as of 05/21/2022) [address]21-2017 History of Past illness Narrative* Problem Noted Date Resolved Date 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 09/05/2019 documented as of this encounter (statuses as of 05/27/2022) [address]21-2017 History of Past illness Narrative* Problem Noted Date Resolved Date 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 09/05/2019 documented as of this encounter (statuses as of 05/28/2022) [address]21-2017 History of Past illness Narrative* Problem Noted Date Resolved Date 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 09/05/2019 documented as of this encounter (statuses as of 06/12/2022) [address]21-2017 History of Past illness Narrative* Problem Noted Date Resolved Date 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 09/05/2019 documented as of this encounter (statuses as of 06/19/2022) [address]-2017 History of Past illness Narrative* Problem Noted Date Resolved Date 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 09/05/2019 documented as of this encounter (statuses as of 06/19/2022) [address]-2017 History of Past illness Narrative* Problem Noted Date Resolved Date 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 09/05/2019 documented as of this encounter (statuses as of 06/20/2022) [address]2017 History of Past illness Narrative* Problem Noted Date Resolved Date 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 09/05/2019 documented as of this encounter (statuses as of 06/25/2022) [address]2017 History of Past illness Narrative* Problem Noted Date Resolved Date 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 09/05/2019 documented as of this encounter (statuses as of 06/26/2022) [address]21[address]2017 History of Past illness Narrative* Problem Noted Date Resolved Date 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 09/05/2019 documented as of this encounter (statuses as of 07/07/2022) [address]21[address]2017 History of Past illness Narrative* Problem Noted Date Resolved Date 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 09/05/2019 documented as of this encounter (statuses as of 07/07/2022) [address]21[address]2017 History of Past illness Narrative* Problem Noted Date Resolved Date 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 09/05/2019 documented as of this encounter (statuses as of 07/09/2022) [address]21-2017 History of Past illness Narrative* Problem Noted Date Resolved Date 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 09/05/2019 documented as of this encounter (statuses as of 07/29/2022) [address]21-2017 History of Past illness Narrative* Problem Noted Date Resolved Date 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 09/05/2019 documented as of this encounter (statuses as of 07/31/2022) [address]21-2017 History of Past illness Narrative* Problem Noted Date Resolved Date 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 09/05/2019 documented as of this encounter (statuses as of 08/14/2022) [address]21-2017 History of Past illness Narrative* Problem Noted Date Resolved Date 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 09/05/2019 documented as of this encounter (statuses as of 08/20/2022) [address]21-2017 History of Past illness Narrative* Problem Noted Date Resolved Date 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 09/05/2019 documented as of this encounter (statuses as of 08/28/2022) [address]-2017 History of Past illness Narrative* Problem Noted Date Resolved Date 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 09/05/2019 documented as of this encounter (statuses as of 09/04/2022) [address]-2017 History of Past illness Narrative* Problem Noted Date Diagnosed Date Resolved Date ASCVD (arteriosclerotic card iovascular disease) 11/20/2016 09/05/2019 documented as of this encounter (statuses as of 09/29/2022) [address]-2017 History of Past illness Narrative* Problem Noted Date Diagnosed Date Resolved Date ASCVD (arteriosclerotic card iovascular disease) 11/20/2016 09/05/2019 documented as of this encounter (statuses as of 09/30/2022) [address]-2017 History of Past illness Narrative* Problem Noted Date Diagnosed Date Resolved Date ASCVD (arteriosclerotic card iovascular disease) 11/20/2016 09/05/2019 documented as of this encounter (statuses as of 01/04/2023) [place] [address] History of Past illness Narrative* Problem Noted Date Diagnosed Date Resolved Date ASCVD (arteriosclerotic card iovascular disease) 11/20/2016 09/05/2019 documented as of this encounter (statuses as of 01/04/2023) [facility]09-21-2017 History of Past illness Narrative* Problem Noted Date Diagnosed Date Resolved Date ASCVD (arteriosclerotic card iovascular disease) 11/20/2016 09/05/2019 documented as of this encounter (statuses as of 01/04/2023) [facility] Malu Steen [facility] Note Date/Time May 24, 2024 2:2 7pm [facility] Medical Records Department [address] [place] [address] Discharge Summary 05/24/24 1405 MR#: [id number] Acct: [id number] Name: OSWALDO CORLEY Rep #:[id number] : 1940 83 From: Malu Steen DO PCP: Dr. Mei Cummins MD Status:AD M IN Location: [facility] [id number] Providers Date of Admission: 05/22/24 Date of Discharge: 05/24/24 Primary Care Physician: Dr. Mei Cummins MD Reason For Visit: COPD EXACERBATION Diagnosis Discharge Diagnosis (1) Acute exacerbation of chronic obstructive pulmonary disease: Status: Chronic Code(s): J44.1 - Chronic obstructive pulmonary disease with (acute) exacerbation Medications at Discharge Home Medications nitroglycerin 0.4 mg sublingual tablet 0.4 mg sublingual Q5M PRN Chest Pain 12/29/14 fluticasone propionate 230 mcg-salmeterol 21 mcg/actuation HFA inhaler (Advair HFA) 2 puff inhalation BID breathing 08/07/22 atorvastatin 40 mg tablet 40 mg PO QHS cholesterol 03/25/23 duloxetine 30 mg capsule,delayed release 30 mg PO QPM DEPRESSION 03/25/23 tamsulosin 0.4 mg capsule 0.4 mg PO QPM BLADDER/ PROSTATE 03/25/23 tiotropium bromide 2.5 mcg/actuation mist for inhalation (Spiriva Respimat) 2 puff inhalation DAILY copd 03/25/23 ezetimibe 10 mg tablet 10 mg PO DAILY cholesterol 09/28/23 apixaban 5 mg tablet (Eliquis) 5 mg PO BID blood thinner 10/05/23 albuterol sulfate 90 mcg/actuation aerosol inhaler 2 puff inhalation Q4H PRN wheezing 02/19/24 aspirin 81 mg tablet,delayed release (Enteric Coated Aspirin) 81 mg PO DAILY heart 02/19/24 lorazepam 1 mg tablet 1 mg PO TID anxiety 02/19/24 oxycodone 5 mg tablet 5 mg PO Q4H PRN chronic pain 02/21/24 ondansetron 4 mg disintegrating tablet 4 mg PO DAILY PRN nausea and vomiting 03/30/24 roflumilast 500 mcg tablet 500 mcg PO DAILY 03/30/24 collagenase clostridium histo. 250 unit/gram topical ointment (Santyl) 1 applic topical DAILY 05/22/24 cyclosporine 0.05 % eye drops in a dropperette (Restasis) 1 drp ophthalmic (eye)BID 05/22/24 furosemide 20 mg tablet (Lasix) 20 mg PO DAILY weight gain 05/22/24 guaifenesin 600 mg tablet, extended release 12 hr (Mucinex) 1,200 mg PO BID cough 05/22/24 prednisone 10 mg tablet 10 mg PO DAILY 05/22/24 Held on 05/24/24. Instructions: until taper completed amoxicillin 875 mg-potassium clavulanate 125 mg tablet 1 tab PO BID #10 tabs 05/24/24 metoprolol tartrate 50 mg tablet 50 mg PO BID #60 tabs 05/24/24 prednisone 10 mg tablet 10 mg PO DAILY #36 tabs 05/24/24 Hospital Course Procedures - (Chest x-ray/CTA chest) Summary of Care Provided Minutes Spent on Discharge: 38 Hospital Course: Mr. Corley is an 83-year-old white male with a history of COPD and chronic hypoxic and hypercapnic respiratory failure at baseline 4 to 5 L of oxygen at rest and 7 L with exertion and presented to emergency department at [facility] on 05/22/2024 with worsening of breath. He was last hospitalized in January 2024 with acute exacerbation of COPD and concern for pneumonia. He indicated he recovered well at that time has not beenhospitalized since. Patient reported on the day of presentation he had increased shortness of breath since the previous Thursday. He was outside today without issue and symptoms started Thursday morning. He indicated shortness of breath severe enough that he can only walk a few steps without getting severely dyspneic. He denies any any sick contacts. Upon initial evaluation emergency department he was very tachypneic with the rest rate of 40-45 times a minute. Oxygen saturation on 4 L nasal cannula within the mid 80s. Vital signs otherwise were as follows, temperature was 97.4, heart rate 106, blood pressure was 117/59. CBC on presentation showed a white count of 13.5, chronic stable anemia with a hemoglobin of 10.2 and a left shift with 95.5% neutrophilia. A venous blood gas was performed and showed a pH of 7.38. Chemistry panel was performed and showed normal electrolytes, normal renal function, his glucose waselevated at 180 but he is on chronic prednisone and his initial lactic acid was 2.7 with an increase to 5.0 and then a subsequent lactate of 4.6. He did have aseries of aerosols I am questioning whether or not his elevated lactate was related to hypoxia initially and then exacerbated by serial aerosols. BNP was 741 and not consistent with heart failure and his procalcitonin was 0.49. Chestx-ray showed previous sternotomy with persistent left upper and lower lung hazy increased density scarring and a probable small left pleural effusion. CTA of the chest was performed and showed ground-glass opacities and extensive changes in the right lower lobe that were concerning for infection versus inflammation as well as progression of areas in the left lower lobe and left upper lobe consistent with scarring and a left lower lobe pleural-based loculated air collection which is chronic. CTA was negative for PE. He was admitted to medical floor and given his significant left shift was placed on community-acquired antibiotics with azithromycin and ceftriaxone. He is also placed on steroids, aerosols and aggressive pulmonary toilet and diuresed some. By 05/24/2024 patient was markedly improved to the point where he only needed 2 L ofoxygen at rest with oxygen saturation 99% and 3 L of oxygen with exertion and oxygen saturation of 99%. Blood cultures were negative, COVID/flu/RSV was unremarkable, respiratory viral panel was unremarkable and strep pneumo and Legionella antigens were negative. Given his marked improvement with community-acquired antibiotic coverage and his right lower lobe infiltrate he was discharged on antibiotics with Augmentin to complete a 7-day course. He was also placed on a slow prednisone taper and is to continue his home inhalers at the time of discharge. Of asked him to follow-up with his primary care physician within the next week and he has ongoing follow-up for a left lower extremity wound at the wound center. Patient was able to be discharged home in stable condition on 05/24/2024. 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 Chronic pain History of left-sided lung cancer status postsurgical resection Anxiety Depression History of prostate cancer Left lower extremity leg wound Physical Exam Const alert, oriented x3, average body habitus and no limitations; Negative for no apparent distress, healthy appearing or well nourished Constitutional Narrative: Very pleasant, elderly, white male, sitting up in a chair at the bedside, at bedside, patient appears comfortable, nontoxic, currently on baseline oxygen at 2 L while at rest, no signs of conversational dyspnea and no tachypnea General Appearance: cooperative, comfortable, well kempt and well developed Exam Limitations: no limitations Nutritional Appearance: other Other Details: Normal weight HEENT normocephalic, head/scalp atraumatic and moist oral mucous membranes; Negative for hearing grossly normal bilaterally HEENT Narrative: Dentures in place, Mallampati 2, no thrush, mild hearing loss Eyes EOMs intact bilaterally and conjunctivae normal Eyes Narrative: No scleral icterus Neck supple Neck Narrative: Trachea midline, no thyroid enlargement Resp normal respiratory effort, no retractions, no use of accessory muscles and clearto auscultation bilaterally Resp Narrative: Severely diminished diffusely with no adventitious sounds noted at this time, notachypnea or signs of extremis Auscultation: Negative for rales, rhonchi or wheezes Cardio regular rate, regular rhythm, S1 normal heart sound, S2 normal heart sound, no murmurs, no rub, no gallops and no clicks GI normal to inspection, nondistended, normoactive bowel sounds, soft to palpation and non-tender Extremity Extremity Narrative: Slight left lower extremity swelling where her wound is in place but chronic in nature, right lower extremity within normal limits, pedal pulses are 2+ bilaterally Skin No no wounds, skin turgor normal, no jaundice, no petechiae and no mottling Skin Narrative: Wound on left lower extremity Neuro oriented x3, moves all extremities and no focal motor deficits Speech: speech normal Psych affect normal Psych Narrative: Extremely pleasant, eye contact is good and patient interacts appropriately Weight / BMI Weight Weight: 76.7 kg Body Mass Index (BMI) 22.9 ABG / Lab / Microbiology Data 05/23/24 04:26 05/23/24 04:26 Microbiology: Microbiology 05/22/24 15:10 Blood Culture (Wb) - Anticubital Left Blood Culture - Preliminary No growth in 48 hours. 05/22/24 15:30 Blood Culture (Wb) - Anticubital Left Blood Culture - Preliminary No growth in 48 hours. 05/23/24 03:00 Urine, Clean Catch Legionella Antigen - Final 05/23/24 03:00 Urine, Clean Catch Streptococcus pneumoniae Antigen (M - Final 05/22/24 19:30 Mucosa - Nasopharyngeal Respiratory Panel (PCR) - Final 05/22/24 12:25 Mucosa - Nose SARS-CoV-2, Influenza & RSV (PCR) - Final D/C Instructions Discharge Diet: Low fat / Low cholesterol Discharge Activity: Return to Normal Activity DC O2, CPAP, BIPAP Needs Home O2 Discharge instructions: Yes Type of respiratory needs?: Oxygen Oxygen frequency: Continuous Continuous oxygen liters per minute: 2 and With AmbulationOxygen liters per minute during Ambulation: 3 DC home with Oxygen: Yes Home O2 MD Review: I have reviewed the oxygen testing, and the patient qualifies for home oxygen equipment and portability. The patient is mobile in the home and the community. Meaningful Use Info Meaningful Use Meaningful Use Diagnoses (Choose all that apply): None applicable Ischemic Stroke Statin Dosing Therapy Reference: STATIN DOSE THERAPY REFERENCE: * Patients > 75 years receive moderate or high dose statin therapy. * Patients 75 years or YOUNGER should receive HIGH intensity statin dose unless contraindicated. You will be required to document reason for non-treatment if statin daily dose does not meet guidelines. HIGH DOSE STATIN THERAPY DAILY Atorvastatin > than or = to 40 mg Rosuvastatin > than or = to 20 mg Amlodipine + Atorvastatin > than or = to 2.5/40 mg Ezetimibe + Simvastatin 10/80 mg Simvastatin 80mg Discharge Plan Admission Admit Date/Time: 05/22/24 15:14 Primary Reason for Your Visit: Shortness of breath Attending Provider: Malu Steen Primary Care Provider: Mei Cummins Consulting Providers: Jacob Suazo; Mei Cortes Instructions Additional Instructions / Restrictions: 1. Please complete entire antibiotic course 2. Please complete prednisone taper and then revert back to your 10 mg daily 3. Please continue to utilize incentive spirometer and Acapella after discharge Discharge Orders/Prescriptions Prescriptions: New metoprolol tartrate 50 mg Tablet 50 mg PO BID Qty: 60 1RF prednisone 10 mg tablet 10 mg PO DAILY Qty: 36 0RF Rx Instructions: 4 tablets x 4 days, 3 tablets x 4 days, 2 tablets x 4 days then restart 10 mgdaily from home dosing amoxicillin-pot clavulanate 875-125 mg tablet 1 tab PO BID Qty: 10 0RF Continued fluticasone propion-salmeterol [Advair HFA] 230-21 mcg/actuation HFA aerosol inhaler 2 puff inhalation BID nitroglycerin 0.4 MG tablet 0.4 mg SL Q5M PRN (Reason: Chest Pain) atorvastatin 40 mg tablet 40 mg PO QHS duloxetine 30 mg capsule,delayed release(DR/EC) 30 mg PO QPM tamsulosin 0.4 mg capsule 0.4 mg PO QPM Spiriva Respimat 2.5 mcg/actuation mist 2 puff INHALATION DAILY Rx Instructions: USES AROUND NOON ezetimibe 10 mg tablet 10 mg PO DAILY Eliquis 5 mg tablet 5 mg PO BID lorazepam 1 mg tablet 1 mg PO TID albuterol sulfate 90 mcg/actuation HFA aerosol inhaler 2 puff inhalation Q4H PRN (Reason: wheezing) aspirin [Enteric Coated Aspirin] 81 mg tablet,delayed release (DR/EC) 81 mg PO DAILY oxycodone 5 mg tablet 5 mg PO Q4H PRN ondansetron 4 mg tablet,disintegrating 4 mg PO DAILY PRN (Reason: nausea and vomiting) roflumilast 500 mcg tablet 500 mcg PO DAILY Patient Comments: TAKE 1/2 A PILL FOR 2 WEEKS THEN 1 PILL DAILY. cyclosporine [Restasis] 0.05 % dropperette 1 drp ophthalmic (eye) BID Patient Comments: PT TAKES 3 DROPS TWICE A DAY Santyl 250 unit/gram ointment 1 applic topical DAILY furosemide [Lasix] 20 mg tablet 20 mg PO DAILY guaifenesin [Mucinex] 600 mg tablet extended release 12hr 1,200 mg PO BID Held prednisone 10 mg tablet 10 mg PO DAILY Hold Instructions: until taper completed Discontinued metoprolol tartrate 25 mg Tablet 12.5 mg PO BID Referrals / Follow Up: Mei Cummins MD [Primary Care Provider] - In 1 Week Disposition Disposition (needs filled in before D/C Order can be placed): Home, Self Care Charges/Coding Visit Charges Inpatient E&M: 03117 Disch Hosp >30min 05/24/24 1427 <Electronically signed by Malu Steen DO> Cosigner Signature (if applicable): CC: Dr. Malu Steen DO; Dr. Mei Cummins MD~ Signed [facility] Work Phone: Evaluation note* Diagnosis Anxiety- Primary Anxiety state, unspecified Depression, unspecified depression type 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 and other lower urinary tract symptoms (LUTS) Coronary artery disease involving [place] coronary artery of [place] heart without angina pectoris Essential hypertension Unspecified essential hypertension Hyperlipidemia, mixed Mixed hyperlipidemia Chronic obstructive pulmonary disease with acute exacerbation (HCC) Obstructive chronic bronchitis with exacerbation Squamous carcinoma of lung, left (HCC) Rib pain on left side Chest pain, unspecified [facility] Diagnosis Cancer of trachea, bronchus, and lung (HCC)- Primary Malignant neoplasm of other parts of bronchus or lung [facility] Diagnosis Malignant neoplasm of unspecified part of unspecified bronchus or lung (HCC) [facility]* Diagnosis Malignant neoplasm of unspecified part of unspecified bronchus or lung (HCC)- Primary Chronic post-thoracotomy pain [facility]* Diagnosis Anxiety Anxiety state, unspecified [facility]* Diagnosis Chronic obstructive pulmonary disease with acute exacerbation (HCC)- Primary Obstructive chronic bronchitis with exacerbation Essential hypertension Unspecified essential hypertension Anxiety Anxiety state, unspecified Squamous carcinoma of lung, 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[place] coronary artery of [place] heart without angina pectoris [facility]* Diagnosis Onset Date Resolution Status Squamous cell carcinoma of left lung acute Stage 3 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 chronic 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 [facility] Work Phone: Evaluation note* Diagnosis Malignant neoplasm of unspecified part of unspecified bronchus or lung (HCC)- Primary [facility] Diagnosis Malignant neoplasm of unspecified part of unspecified bronchus or lung (HCC)- Primary [facility]* Diagnosis Coronary artery disease involving [place] coronary artery of [place] heart without angina pectoris- Primary Essential hypertension Unspecified essential hypertension Hyperlipidemia, mixed Mixed hyperlipidemia Abdominal aortic aneurysm (AAA) without rupture documented [facility] this encounter [facility] noteNo assessment information availableWNorwalk [facility] Work Phone: Evaluation note* Diagnosis Chronic obstructive pulmonary disease with acute exacerbation (HCC)- Primary Obstructive chronic bronchitis with exacerbation Anxiety Anxiety state, unspecified Essential hypertension Unspecified essential hypertension Coronary artery disease involving [place] coronary artery of [place] heart without angina pectoris 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 and other lower urinary tract symptoms (LUTS) Hyperlipidemia, mixed Mixed hyperlipidemia Squamous carcinoma of lung, left (HCC) [facility]* Diagnosis Diminished pulses in lower extremity- Primary Other symptoms involving cardiovascular system Screening for nephropathy Pressure injury of right heel, unstageable (HCC) Peripheral arterial disease (HCC) Peripheral vascular disease, unspecified Fissure in skin of foot Other specified disorder of skin [facility] Diagnosis Pressure injury of right heel, unstageable (HCC) Peripheral arterial disease (HCC) Peripheral vascular disease, unspecified Fissure in skin of foot Other specified disorder of skin [facility]* Diagnosis 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 Type II or unspecified type diabetes mellitus with other specified manifestations, not stated as uncontrolled Peripheral arterial disease (HCC) Peripheral vascular disease, unspecified [facility] Diagnosis Diminished pulses in lower extremity- Primary Other symptoms involving cardiovascular system [facility] Diagnosis Peripheral arterial disease (HCC)- Primary Peripheral vascular disease, unspecified 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, with fat layer 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) [facility]* Diagnosis Peripheral arterial disease (HCC)- Primary Peripheral vascular disease, unspecified [facility] Diagnosis Peripheral arterial disease (HCC)- Primary Peripheral vascular disease, unspecified 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, 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) Type II or unspecified type diabetes mellitus with other specified manifestations, not stated as uncontrolled Pressure injury of right heel, unstageable (HCC) [facility] encounter [facility]* Diagnosis PAD (peripheral artery disease) (HCC)- Primary Peripheral vascular disease, unspecified PAD (peripheral artery disease) (HCC) Peripheral vascular disease, unspecified [facility] Diagnosis Peripheral arterial disease (HCC)- Primary Peripheral vascular disease, unspecified 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, with fat layer 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) PAD (peripheral artery disease) (HCC) Peripheral vascular disease, unspecified [facility] encounter [facility]* Diagnosis 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, with fat layer 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)- Primary Peripheral arterial disease (HCC) Peripheral vascular disease, unspecified [facility] encounter [facility]* Diagnosis 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, with fat layer 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)- Primary Peripheral arterial disease (HCC) Peripheral vascular disease, unspecified documented in this encounter [facility] note* Diagnosis Onset Date Resolution Status Squamous cell carcinoma of left lung acute Chronic hypoxemic respiratory failure chronic Stage 3 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 chronic Tobacco dependence in remission [facility] Work Phone: Evaluation note* Diagnosis 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 (HCC)- Primary Atherosclerosis of [place] arteries of the extremities with rest pain 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, with fat layer 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) 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 (HCC) Atherosclerosis of [place] arteries of the extremities with rest pain 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, with fat layer 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) documented [facility] this encounter [facility]* Diagnosis Encounter for preprocedural cardiovascular examination Pre-operative cardiovascular examination 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 (HCC) Atherosclerosis of [place] arteries of the extremities with rest pain 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, with fat layer 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) documented [facility] this encounter [facility]* Diagnosis 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, with fat layer 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)- Primary Peripheral arterial disease (HCC) Peripheral vascular disease, unspecified 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) Type II or unspecified type diabetes mellitus with other specified manifestations, not stated as uncontrolled 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 (HCC) Atherosclerosis of [place] arteries of the extremities with rest pain 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, with fat layer 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) 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 (HCC) Atherosclerosis of [place] arteries of the extremities with rest pain 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, with fat layer 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) [facility] Coronary artery disease involving [place] coronary artery of [place] heart without angina pectoris- Primary Essential hypertension Unspecified essential hypertension Hyperlipidemia, mixed Mixed hyperlipidemia PAD (peripheral artery disease) (HCC) Peripheral vascular disease, unspecified Abdominal aortic aneurysm (AAA) without rupture, unspecified part (HCC) Pre-operative cardiovascular examination 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 (HCC) Atherosclerosis of [place] arteries of the extremities with rest pain 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, with fat layer 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) [facility] Diagnosis Peripheral arterial disease (HCC)- Primary Peripheral vascular disease, unspecified [facility] Diagnosis Skin ulcer of right heel with fat layer 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)- Primary [facility] Diagnosis Skin ulcer of right heel with fat layer 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)- Primary [facility] Diagnosis Skin ulcer of right heel with fat layer 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)- Primary Peripheral arterial disease (HCC) Peripheral vascular disease, unspecified [facility] Diagnosis Peripheral arterial disease (HCC)- Primary Peripheral vascular disease, unspecified [facility] Diagnosis Skin ulcer of right heel with fat layer 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)- Primary [facility]* Diagnosis Anxiety- Primary Anxiety state, unspecified Depression, unspecified depression type Hyperlipidemia, mixed Mixed hyperlipidemia Essential hypertension Unspecified essential hypertension Chronic obstructive pulmonary disease with acute exacerbation (HCC) Obstructive chronic bronchitis with exacerbation Coronary artery disease involving [place] coronary artery of [place] heart without angina pectoris PAD (peripheral artery disease) (HCC) Peripheral vascular disease, unspecified Squamous carcinoma of lung, 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 Acquired absence of organ, lung Acute and chronic respiratory failure with hypoxia (HCC) Acute and chronic respiratory [facility] Skin ulcer of right heel with fat layer 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)- Primary Peripheral arterial disease (HCC) Peripheral vascular disease, unspecified [facility] Diagnosis Coronary artery disease involving [place] coronary artery of [place] heart without angina pectoris- Primary S/P coronary artery stent placement, status post multiple stent placements Postsurgical percutaneous transluminal coronary angioplasty status Pre-operative cardiovascular examination [facility] Diagnosis Peripheral arterial disease (HCC)- Primary Peripheral vascular disease, unspecified [facility] Diagnosis Skin ulcer of right heel with fat layer 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)- Primary Peripheral arterial disease (HCC) Peripheral vascular disease, unspecified [facility] Diagnosis Peripheral arterial disease (HCC)- Primary Peripheral vascular disease, unspecified [facility] Diagnosis Skin ulcer of right heel with fat layer 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)- Primary [facility]* Diagnosis Chronic obstructive pulmonary disease with acute exacerbation (HCC)- Primary Obstructive chronic bronchitis with exacerbation [facility] Diagnosis Skin ulcer of right heel with fat layer 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)- Primary Peripheral arterial disease (HCC) Peripheral vascular disease, unspecified [facility]* Diagnosis Anxiety Anxiety state, unspecified [facility] Diagnosis Coronary artery disease involving [place] coronary artery of [place] heart without angina pectoris- Primary Essential hypertension Unspecified essential hypertension Hyperlipidemia, mixed Mixed hyperlipidemia Peripheral arterial disease (HCC) Peripheral vascular disease, unspecified [facility] Diagnosis SOB (shortness of breath) Shortness of breath [facility] Diagnosis SOB (shortness of breath) Shortness of breath [facility] Diagnosis Stage 3 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 ([facility])- Primary Dependence on continuous supplemental oxygen History of cancer of lower lobe bronchus or lung Personal history of malignant neoplasm of bronchus and lung Bronchiectasis without complication (HCC) Bronchiectasis without acute exacerbation Hydropneumothorax Other specified forms of effusion, except tuberculous [facility] Diagnosis Hypoxemia [facility]* Diagnosis Chronic obstructive pulmonary disease, unspecified COPD type (HCC) [facility] Diagnosis Posterior tibial tendon dysfunction- Primary Other disorders of synovium, tendon, and bursa [facility] Diagnosis Essential hypertension Unspecified essential hypertension [facility] Diagnosis Anxiety- Primary Anxiety state, unspecified Depression, unspecified depression type Essential hypertension Unspecified essential hypertension Chronic obstructive pulmonary disease, unspecified COPD type (HCC) Squamous carcinoma of lung, left (HCC) Acute and chronic respiratory failure with hypoxia (HCC) Acute and chronic respiratory failure Hyperlipidemia, mixed Mixed hyperlipidemia PAD (peripheral artery disease) (HCC) Peripheral vascular disease, unspecified Elevated glucose Other abnormal glucose 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 and other lower urinary tract symptoms (LUTS) Need for influenza vaccination Need for prophylactic vaccination and inoculation against influenza Need for vaccination Need for prophylactic vaccination and inoculation against unspecified single disease [facility] Diagnosis Pressure injury of right heel, unstageable (HCC) Coronary artery disease involving [place] coronary artery of [place] heart without angina pectoris- Primary Essential hypertension Unspecified essential hypertension Hyperlipidemia, mixed Mixed hyperlipidemia PAD (peripheral artery disease) (HCC) Peripheral vascular disease, unspecified [facility] Diagnosis Malignant neoplasm of unspecified part of unspecified bronchus or lung (HCC) Coronary artery disease involving [place] coronary artery of [place] heart without angina pectoris- Primary Essential hypertension Unspecified essential hypertension Hyperlipidemia, mixed Mixed hyperlipidemia PAD (peripheral artery disease) (HCC) Peripheral vascular disease, unspecified [facility] Diagnosis Peripheral arterial disease (HCC) Peripheral vascular disease, unspecified 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, with fat layer 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) Coronary artery disease involving [place] coronary artery of [place] heart without angina pectoris- Primary Essential hypertension Unspecified essential hypertension Hyperlipidemia, mixed Mixed hyperlipidemia PAD (peripheral artery disease) (HCC) Peripheral vascular disease, unspecified documented in this encounter [facility] note* Diagnosis Skin ulcer of right heel with fat layer 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) Peripheral arterial disease (HCC) Peripheral vascular disease, unspecified Coronary artery disease involving [place] coronary artery of [place] heart without angina pectoris- Primary Essential hypertension Unspecified essential hypertension Hyperlipidemia, mixed Mixed hyperlipidemia PAD (peripheral artery disease) (HCC) Peripheral vascular disease, unspecified documented in this encounter [facility] note* Diagnosis Skin ulcer of right heel with fat layer 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) Coronary artery disease involving [place] coronary artery of [place] heart without angina pectoris- Primary Essential hypertension Unspecified essential hypertension Hyperlipidemia, mixed Mixed hyperlipidemia PAD (peripheral artery disease) (HCC) Peripheral vascular disease, unspecified documented in this encounter [facility] note* Diagnosis 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, with fat layer 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) Coronary artery disease involving [place] coronary artery of [place] heart without angina pectoris- Primary Essential hypertension Unspecified essential hypertension Hyperlipidemia, mixed Mixed hyperlipidemia PAD (peripheral artery disease) (HCC) Peripheral vascular disease, unspecified documented in this encounter [facility] note* Diagnosis Lung nodule- Primary Solitary pulmonary nodule 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) Chronic hypoxemic respiratory failure (HCC) Chronic respiratory failure H/O: lung cancer Personal history of malignant neoplasm of bronchus and lung Bronchiectasis without complication (HCC) Bronchiectasis without acute exacerbation Hydropneumothorax Other specified forms of effusion, except tuberculous documented in this encounter [facility] note* Diagnosis Malignant neoplasm of unspecified part of unspecified bronchus or lung (HCC)- Primary documented in this encounter [facility] note* Diagnosis Onset Date Resolution Status Acidosis, lactic acute History of coronary artery disease acute Major hemoptysis acute Pulmonary cavitary lesion ac [place] Pulmonary embolus acute Pulmonary neoplasm acute Sinus tachycardia by electrocardiogram acute Benign essential HTN chronic COPD with acute exacerbation [facility] Work Phone: Evaluation note* Diagnosis Lung nodule- Primary Other diseases of lung, not elsewhere classified documented in this encounter [facility] note* Diagnosis Lung nodule- Primary Other diseases of lung, not elsewhere classified documented in this encounter [facility] note* Diagnosis Squamous carcinoma of lung, left (HCC)- Primary Chronic pulmonary embolism without acute cor pulmonale, unspecified pulmonary embolism type (HCC) Prostate cancer (HCC) Malignant neoplasm of prostate [facility] Diagnosis Hospital discharge follow-up- Primary Other follow-up examination 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) Chronic hypoxemic respiratory failure (HCC) Chronic respiratory failure Other pulmonary embolism without acute cor pulmonale, unspecified chronicity (HCC) Deep vein thrombosis (DVT) of popliteal vein of both lower extremities, unspecified chronicity (HCC) Hemoptysis Hemoptysis, unspecified History of cancer of lower lobe bronchus or lung Personal history of malignant neoplasm of bronchus and lung [facility] Diagnosis 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)- Primary Chronic hypoxemic respiratory failure (HCC) Chronic respiratory failure Other pulmonary embolism without acute cor pulmonale, unspecified chronicity (HCC) History of cancer of lower lobe bronchus or lung Personal history of malignant neoplasm of bronchus and lung Hydropneumothorax Other specified forms of effusion, except tuberculous [facility] Diagnosis Squamous carcinoma of lung, left (HCC)- Primary Chronic pulmonary embolism without acute cor pulmonale, unspecified pulmonary embolism type (HCC) [facility]* Diagnosis Squamous carcinoma of lung, left (HCC) [facility]* Diagnosis Anxiety Anxiety state, unspecified [facility]* Diagnosis Onset Date Resolution Status Acidosis, lactic acute History of coronary artery disease acute Pulmonary cavitary lesion ac [place] Benign essential HTN chronic COPD with acute exacerbation chronic Major hemoptysis resolved Sinus tachycardia by electrocardiogram resolved [facility] Work Phone: Evaluation note* Diagnosis Coronary artery disease involving [place] coronary artery of [place] heart without angina pectoris- Primary Essential hypertension Unspecified essential hypertension Hyperlipidemia, mixed Mixed hyperlipidemia Peripheral arterial disease (HCC) Peripheral vascular disease, unspecified [facility]* Diagnosis Squamous carcinoma of lung, left (HCC)- Primary Squamous carcinoma of lung, left (HCC) [facility]* Diagnosis 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, left (HCC) [facility] Diagnosis Squamous carcinoma of lung, left (HCC)- Primary [facility]* Diagnosis Anxiety- Primary Anxiety state, unspecified Moderate recurrent major depression (HCC) Major depressive disorder, recurrent episode, moderate Hyperlipidemia, mixed Mixed hyperlipidemia Essential hypertension Unspecified essential hypertension Coronary artery disease involving [place] coronary artery of [place] heart without angina pectoris PAD (peripheral artery disease) (HCC) Peripheral vascular disease, unspecified Chronic obstructive pulmonary disease with acute exacerbation (HCC) Obstructive chronic bronchitis with exacerbation Squamous carcinoma of lung, left (HCC) Prostate cancer (HCC) Malignant neoplasm of prostate documented in this encounter [facility] note* Diagnosis 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)- Primary documented in this encounter [facility] note* Diagnosis Squamous carcinoma of lung, left (HCC)- Primary documented in this encounter [facility] note* Diagnosis Squamous carcinoma of lung, left (HCC) documented in this encounter [facility] note* Diagnosis Peripheral arterial disease (HCC)- Primary Peripheral vascular disease, unspecified Abdominal aortic ectasia (HCC) Abdominal aortic ectasia documented in this encounter [facility] note* Diagnosis Malignant neoplasm of unspecified part of unspecified bronchus or lung (HCC)- Primary Squamous carcinoma of lung, left (HCC) Lung nodules Other nonspecific abnormal finding of lung field documented in this encounter [facility] note* Diagnosis Anxiety Anxiety state, unspecified documented in this encounter [facility] note* Diagnosis 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)- Primary Chronic hypoxemic respiratory failure (HCC) Chronic respiratory failure History of cancer of lower lobe bronchus or lung Personal history of malignant neoplasm of bronchus and lung Lung nodule Solitary pulmonary nodule Bronchiectasis without complication (HCC) Bronchiectasis without acute exacerbation documented in this encounter [facility] note* Diagnosis Anxiety- Primary Anxiety state, unspecified Moderate recurrent major depression (HCC) Major depressive disorder, recurrent episode, moderate Essential hypertension Unspecified essential hypertension Elevated glucose Other abnormal glucose Hyperlipidemia, mixed Mixed hyperlipidemia Coronary artery disease involving [place] coronary artery of [place] heart without angina pectoris PAD (peripheral artery disease) (HCC) Peripheral vascular disease, unspecified Chronic obstructive pulmonary disease, unspecified COPD type (HCC) documented in this encounter [facility] note* Diagnosis Coronary artery disease involving [place] coronary artery of [place] heart without angina pectoris Hyperlipidemia, mixed Mixed hyperlipidemia documented [facility]* Diagnosis Chronic pulmonary embolism without acute cor pulmonale, unspecified pulmonary embolism type (HCC)- Primary [facility]* Diagnosis Pre-operative examination- Primary Preoperative examination, unspecified Elevated glucose level Squamous carcinoma of lung, 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[place] coronary artery of [place] heart without angina pectoris Abdominal aortic aneurysm (AAA) without rupture, unspecified part (HCC) Chronic obstructive pulmonary disease with acute exacerbation (HCC) Obstructive chronic bronchitis with exacerbation Anxiety Anxiety state, unspecified Essential hypertension Unspecified essential hypertension Hyperlipidemia, 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 and other lower urinary tract symptoms (LUTS) Prostate cancer (HCC) Malignant neoplasm of prostate PAD (peripheral artery disease) (HCC) Peripheral vascular disease, unspecified 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, unspecified ulcer stage (HCC) Former smoker Personal history of tobacco use, presenting hazards to health Chronic obstructive pulmonary disease, unspecified COPD type (HCC)- Primary Essential hypertension Unspecified essential hypertension Anxiety Anxiety state, unspecified Coronary artery disease involving [place] coronary artery of [place] heart without angina pectoris Squamous carcinoma of lung, left (HCC) Acute and chronic respiratory failure with hypoxia (HCC) Acute and chronic respiratory failure Moderate recurrent major depression (HCC) Major depressive disorder, recurrent episode, moderate Hospital discharge follow-up Other follow-up examination documented in this encounter [facility] note* Diagnosis Pre-operative examination- Primary Preoperative examination, unspecified Elevated glucose level Squamous carcinoma of lung, 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[place] coronary artery of [place] heart without angina pectoris Abdominal aortic aneurysm (AAA) without rupture, unspecified part (HCC) Chronic obstructive pulmonary disease with acute exacerbation (HCC) Obstructive chronic bronchitis with exacerbation Anxiety Anxiety state, unspecified Essential hypertension Unspecified essential hypertension Hyperlipidemia, 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 and other lower urinary tract symptoms (LUTS) Prostate cancer (HCC) Malignant neoplasm of prostate PAD (peripheral artery disease) (HCC) Peripheral vascular disease, unspecified 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, unspecified ulcer stage (HCC) Former smoker Personal history of tobacco use, presenting hazards to health Squamous carcinoma of lung, left (HCC)- Primary documented in this encounter [facility] note* Diagnosis Pre-operative examination- Primary Preoperative examination, unspecified Elevated glucose level Squamous carcinoma of lung, 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[place] coronary artery of [place] heart without angina pectoris Abdominal aortic aneurysm (AAA) without rupture, unspecified part (HCC) Chronic obstructive pulmonary disease with acute exacerbation (HCC) Obstructive chronic bronchitis with exacerbation Anxiety Anxiety state, unspecified Essential hypertension Unspecified essential hypertension Hyperlipidemia, 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 and other lower urinary tract symptoms (LUTS) Prostate cancer (HCC) Malignant neoplasm of prostate PAD (peripheral artery disease) (HCC) Peripheral vascular disease, unspecified 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, unspecified ulcer stage (HCC) Former smoker Personal history of tobacco use, presenting hazards to health Squamous carcinoma of lung, left (HCC) Lung nodules Other nonspecific abnormal finding of lung field [facility]* Diagnosis Pre-operative examination- Primary Preoperative examination, unspecified Elevated glucose level Squamous carcinoma of lung, 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[place] coronary artery of [place] heart without angina pectoris Abdominal aortic aneurysm (AAA) without rupture, unspecified part (HCC) Chronic obstructive pulmonary disease with acute exacerbation (HCC) Obstructive chronic bronchitis with exacerbation Anxiety Anxiety state, unspecified Essential hypertension Unspecified essential hypertension Hyperlipidemia, 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 and other lower urinary tract symptoms (LUTS) Prostate cancer (HCC) Malignant neoplasm of prostate PAD (peripheral artery disease) (HCC) Peripheral vascular disease, unspecified 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, unspecified ulcer stage (HCC) Former smoker Personal history of tobacco use, presenting hazards to health Cellulitis of left ankle- Primary Cellulitis and abscess of leg, except foot [facility]* Diagnosis Pre-operative examination- Primary Preoperative examination, unspecified Elevated glucose level Squamous carcinoma of lung, 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[place] coronary artery of [place] heart without angina pectoris Abdominal aortic aneurysm (AAA) without rupture, unspecified part (HCC) Chronic obstructive pulmonary disease with acute exacerbation (HCC) Obstructive chronic bronchitis with exacerbation Anxiety Anxiety state, unspecified Essential hypertension Unspecified essential hypertension Hyperlipidemia, 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 and other lower urinary tract symptoms (LUTS) Prostate cancer (HCC) Malignant neoplasm of prostate PAD (peripheral artery disease) (HCC) Peripheral vascular disease, unspecified 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, unspecified ulcer stage (HCC) Former smoker Personal history of tobacco use, presenting hazards to health Squamous carcinoma of lung, left (HCC)- [facility] Diagnosis Pre-operative examination- Primary Preoperative examination, unspecified Elevated glucose level Squamous carcinoma of lung, 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[place] coronary artery of [place] heart without angina pectoris Abdominal aortic aneurysm (AAA) without rupture, unspecified part (HCC) Chronic obstructive pulmonary disease with acute exacerbation (HCC) Obstructive chronic bronchitis with exacerbation Anxiety Anxiety state, unspecified Essential hypertension Unspecified essential hypertension Hyperlipidemia, 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 and other lower urinary tract symptoms (LUTS) Prostate cancer (HCC) Malignant neoplasm of prostate PAD (peripheral artery disease) (HCC) Peripheral vascular disease, unspecified 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, unspecified ulcer stage (HCC) Former smoker Personal history of tobacco use, presenting hazards to health Skin ulcer, limited to breakdown of skin (HCC) documented in this encounter [facility] note* Diagnosis Pre-operative examination- Primary Preoperative examination, unspecified Elevated glucose level Squamous carcinoma of lung, 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[place] coronary artery of [place] heart without angina pectoris Abdominal aortic aneurysm (AAA) without rupture, unspecified part (HCC) Chronic obstructive pulmonary disease with acute exacerbation (HCC) Obstructive chronic bronchitis with exacerbation Anxiety Anxiety state, unspecified Essential hypertension Unspecified essential hypertension Hyperlipidemia, 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 and other lower urinary tract symptoms (LUTS) Prostate cancer (HCC) Malignant neoplasm of prostate PAD (peripheral artery disease) (HCC) Peripheral vascular disease, unspecified 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, unspecified ulcer stage (HCC) Former smoker Personal history of tobacco use, presenting hazards to health Skin ulcer, limited to breakdown of skin (HCC)- Primary Peripheral arterial disease (HCC) Peripheral vascular disease, unspecified documented in this encounter [facility] note* Diagnosis Pre-operative examination- Primary Preoperative examination, unspecified Elevated glucose level Squamous carcinoma of lung, 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[place] coronary artery of [place] heart without angina pectoris Abdominal aortic aneurysm (AAA) without rupture, unspecified part (HCC) Chronic obstructive pulmonary disease with acute exacerbation (HCC) Obstructive chronic bronchitis with exacerbation Anxiety Anxiety state, unspecified Essential hypertension Unspecified essential hypertension Hyperlipidemia, 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 and other lower urinary tract symptoms (LUTS) Prostate cancer (HCC) Malignant neoplasm of prostate PAD (peripheral artery disease) (HCC) Peripheral vascular disease, unspecified 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, unspecified ulcer stage (HCC) Former smoker Personal history of tobacco use, presenting hazards to health Stage 3 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 ([facility])- Primary Chronic hypoxemic respiratory failure (HCC) Chronic respiratory failure documented in this encounter [facility] note* Diagnosis Rib pain on left side Chest pain, unspecified Pre-operative examination- Primary Preoperative examination, unspecified Elevated glucose level Squamous carcinoma of lung, 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[place] coronary artery of [place] heart without angina pectoris Abdominal aortic aneurysm (AAA) without rupture, unspecified part (HCC) Chronic obstructive pulmonary disease with acute exacerbation (HCC) Obstructive chronic bronchitis with exacerbation Anxiety Anxiety state, unspecified Essential hypertension Unspecified essential hypertension Hyperlipidemia, 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 and other lower urinary tract symptoms (LUTS) Prostate cancer (HCC) Malignant neoplasm of prostate PAD (peripheral artery disease) (HCC) Peripheral vascular disease, unspecified 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, unspecified ulcer stage (HCC) Former smoker Personal history of tobacco use, presenting hazards to health documented in this encounter [facility] note* Diagnosis Pre-operative examination- Primary Preoperative examination, unspecified Elevated glucose level Squamous carcinoma of lung, 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[place] coronary artery of [place] heart without angina pectoris Abdominal aortic aneurysm (AAA) without rupture, unspecified part (HCC) Chronic obstructive pulmonary disease with acute exacerbation (HCC) Obstructive chronic bronchitis with exacerbation Anxiety Anxiety state, unspecified Essential hypertension Unspecified essential hypertension Hyperlipidemia, 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 and other lower urinary tract symptoms (LUTS) Prostate cancer (HCC) Malignant neoplasm of prostate PAD (peripheral artery disease) (HCC) Peripheral vascular disease, unspecified 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, unspecified ulcer stage (HCC) Former smoker Personal history of tobacco use, presenting hazards to health Skin ulcer, limited to breakdown of skin (HCC)- Primary Peripheral arterial disease (HCC) Peripheral vascular disease, unspecified documented in this encounter [facility] note* Diagnosis Pre-operative examination- Primary Preoperative examination, unspecified Elevated glucose level Squamous carcinoma of lung, 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[place] coronary artery of [place] heart without angina pectoris Abdominal aortic aneurysm (AAA) without rupture, unspecified part (HCC) Chronic obstructive pulmonary disease with acute exacerbation (HCC) Obstructive chronic bronchitis with exacerbation Anxiety Anxiety state, unspecified Essential hypertension Unspecified essential hypertension Hyperlipidemia, 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 and other lower urinary tract symptoms (LUTS) Prostate cancer (HCC) Malignant neoplasm of prostate PAD (peripheral artery disease) (HCC) Peripheral vascular disease, unspecified 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, unspecified ulcer stage (HCC) Former smoker Personal history of tobacco use, presenting hazards to [facility] Hospital discharge follow-up- Primary Other follow-up examination Pneumonia of left lung due to infectious organism, unspecified part of lung Hemoptysis Hemoptysis, unspecified 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) Chronic hypoxemic respiratory failure (HCC) Chronic respiratory failure History of cancer of lower lobe bronchus or lung Personal history of malignant neoplasm of bronchus and lung [facility] Diagnosis Pre-operative examination- Primary Preoperative examination, unspecified Elevated glucose level Squamous carcinoma of lung, 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[place] coronary artery of [place] heart without angina pectoris Abdominal aortic aneurysm (AAA) without rupture, unspecified part (HCC) Chronic obstructive pulmonary disease with acute exacerbation (HCC) Obstructive chronic bronchitis with exacerbation Anxiety Anxiety state, unspecified Essential hypertension Unspecified essential hypertension Hyperlipidemia, 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 and other lower urinary tract symptoms (LUTS) Prostate cancer (HCC) Malignant neoplasm of prostate PAD (peripheral artery disease) (HCC) Peripheral vascular disease, unspecified 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, unspecified ulcer stage (HCC) Former smoker Personal history of tobacco use, presenting hazards to [facility] Coronary artery disease involving [place] coronary artery of [place] heart without angina pectoris- Primary Essential hypertension Unspecified essential hypertension Hyperlipidemia, mixed Mixed hyperlipidemia PAD (peripheral artery disease) (HCC) Peripheral vascular disease, unspecified [facility] Diagnosis Pre-operative examination- Primary Preoperative examination, unspecified Elevated glucose level Squamous carcinoma of lung, 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[place] coronary artery of [place] heart without angina pectoris Abdominal aortic aneurysm (AAA) without rupture, unspecified part (HCC) Chronic obstructive pulmonary disease with acute exacerbation (HCC) Obstructive chronic bronchitis with exacerbation Anxiety Anxiety state, unspecified Essential hypertension Unspecified essential hypertension Hyperlipidemia, 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 and other lower urinary tract symptoms (LUTS) Prostate cancer (HCC) Malignant neoplasm of prostate PAD (peripheral artery disease) (HCC) Peripheral vascular disease, unspecified 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, unspecified ulcer stage (HCC) Former smoker Personal history of tobacco use, presenting hazards to health Chronic obstructive pulmonary disease, unspecified COPD type (HCC)- Primary Essential hypertension Unspecified essential hypertension Coronary artery disease involving [place] coronary artery of [place] heart without angina pectoris Hyperlipidemia, 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) Major depressive disorder, recurrent episode, moderate Anxiety Anxiety state, unspecified Prostate cancer (HCC) Malignant neoplasm of prostate Elevated glucose Other abnormal glucose Encounter for immunization Need for other specified prophylactic vaccination against single bacterial disease [facility] Diagnosis Pre-operative examination- Primary Preoperative examination, unspecified Elevated glucose level Squamous carcinoma of lung, 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[place] coronary artery of [place] heart without angina pectoris Abdominal aortic aneurysm (AAA) without rupture, unspecified part (HCC) Chronic obstructive pulmonary disease with acute exacerbation (HCC) Obstructive chronic bronchitis with exacerbation Anxiety Anxiety state, unspecified Essential hypertension Unspecified essential hypertension Hyperlipidemia, 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 and other lower urinary tract symptoms (LUTS) Prostate cancer (HCC) Malignant neoplasm of prostate PAD (peripheral artery disease) (HCC) Peripheral vascular disease, unspecified 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, unspecified ulcer stage (HCC) Former smoker Personal history of tobacco use, presenting hazards to health Skin ulcer, limited to breakdown of skin (HCC)- Primary Peripheral arterial disease (HCC) Peripheral vascular disease, unspecified Venous insufficiency Unspecified venous (peripheral) insufficiency [facility] Diagnosis Pre-operative examination- Primary Preoperative examination, unspecified Elevated glucose level Squamous carcinoma of lung, 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[place] coronary artery of [place] heart without angina pectoris Abdominal aortic aneurysm (AAA) without rupture, unspecified part (HCC) Chronic obstructive pulmonary disease with acute exacerbation (HCC) Obstructive chronic bronchitis with exacerbation Anxiety Anxiety state, unspecified Essential hypertension Unspecified essential hypertension Hyperlipidemia, 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 and other lower urinary tract symptoms (LUTS) Prostate cancer (HCC) Malignant neoplasm of prostate PAD (peripheral artery disease) (HCC) Peripheral vascular disease, unspecified 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, unspecified ulcer stage (HCC) Former smoker Personal history of tobacco use, presenting hazards to health Skin ulcer, limited to breakdown of skin (HCC)- Primary Peripheral arterial disease (HCC) Peripheral vascular disease, unspecified Venous insufficiency Unspecified venous (peripheral) insufficiency [facility]* Diagnosis Pre-operative examination- Primary Preoperative examination, unspecified Elevated glucose level Squamous carcinoma of lung, 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[place] coronary artery of [place] heart without angina pectoris Abdominal aortic aneurysm (AAA) without rupture, unspecified part (HCC) Chronic obstructive pulmonary disease with acute exacerbation (HCC) Obstructive chronic bronchitis with exacerbation Anxiety Anxiety state, unspecified Essential hypertension Unspecified essential hypertension Hyperlipidemia, 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 and other lower urinary tract symptoms (LUTS) Prostate cancer (HCC) Malignant neoplasm of prostate PAD (peripheral artery disease) (HCC) Peripheral vascular disease, unspecified 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, unspecified ulcer stage (HCC) Former smoker Personal history of tobacco use, presenting hazards to health Peripheral vascular disease (HCC)- Primary Peripheral vascular disease, unspecified [facility] Diagnosis Pre-operative examination- Primary Preoperative examination, unspecified Elevated glucose level Squamous carcinoma of lung, 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[place] coronary artery of [place] heart without angina pectoris Abdominal aortic aneurysm (AAA) without rupture, unspecified part (HCC) Chronic obstructive pulmonary disease with acute exacerbation (HCC) Obstructive chronic bronchitis with exacerbation Anxiety Anxiety state, unspecified Essential hypertension Unspecified essential hypertension Hyperlipidemia, 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 and other lower urinary tract symptoms (LUTS) Prostate cancer (HCC) Malignant neoplasm of prostate PAD (peripheral artery disease) (HCC) Peripheral vascular disease, unspecified 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, unspecified ulcer stage (HCC) Former smoker Personal history of tobacco use, presenting hazards to health Skin ulcer, limited to breakdown of skin (HCC) Peripheral arterial disease (HCC) Peripheral vascular disease, unspecified Venous insufficiency Unspecified venous (peripheral) insufficiency [facility] Diagnosis Pre-operative examination- Primary Preoperative examination, unspecified Elevated glucose level Squamous carcinoma of lung, 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[place] coronary artery of [place] heart without angina pectoris Abdominal aortic aneurysm (AAA) without rupture, unspecified part (HCC) Chronic obstructive pulmonary disease with acute exacerbation (HCC) Obstructive chronic bronchitis with exacerbation Anxiety Anxiety state, unspecified Essential hypertension Unspecified essential hypertension Hyperlipidemia, 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 and other lower urinary tract symptoms (LUTS) Prostate cancer (HCC) Malignant neoplasm of prostate PAD (peripheral artery disease) (HCC) Peripheral vascular disease, unspecified 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, unspecified ulcer stage (HCC) Former smoker Personal history of tobacco use, presenting hazards to health Pneumonia of left lung due to infectious organism, unspecified part of lung documented [facility]* Diagnosis Pre-operative examination- Primary Preoperative examination, unspecified Elevated glucose level Squamous carcinoma of lung, 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[place] coronary artery of [place] heart without angina pectoris Abdominal aortic aneurysm (AAA) without rupture, unspecified part (HCC) Chronic obstructive pulmonary disease with acute exacerbation (HCC) Obstructive chronic bronchitis with exacerbation Anxiety Anxiety state, unspecified Essential hypertension Unspecified essential hypertension Hyperlipidemia, 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 and other lower urinary tract symptoms (LUTS) Prostate cancer (HCC) Malignant neoplasm of prostate PAD (peripheral artery disease) (HCC) Peripheral vascular disease, unspecified 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, unspecified ulcer stage (HCC) Former smoker Personal history of tobacco use, presenting hazards to health Pneumonia of left lower lobe due to infectious organism- Primary Bronchiectasis without complication (HCC) Bronchiectasis without acute exacerbation Chronic hypoxemic respiratory failure (HCC) Chronic respiratory failure [facility] Diagnosis Pre-operative examination- Primary Preoperative examination, unspecified Elevated glucose level Squamous carcinoma of lung, 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[place] coronary artery of [place] heart without angina pectoris Abdominal aortic aneurysm (AAA) without rupture, unspecified part (HCC) Chronic obstructive pulmonary disease with acute exacerbation (HCC) Obstructive chronic bronchitis with exacerbation Anxiety Anxiety state, unspecified Essential hypertension Unspecified essential hypertension Hyperlipidemia, 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 and other lower urinary tract symptoms (LUTS) Prostate cancer (HCC) Malignant neoplasm of prostate PAD (peripheral artery disease) (HCC) Peripheral vascular disease, unspecified 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, unspecified ulcer stage (HCC) Former smoker Personal history of tobacco use, presenting hazards to health Skin ulcer, limited to breakdown of skin (HCC)- Primary Peripheral arterial disease (HCC) Peripheral vascular disease, unspecified Venous insufficiency Unspecified venous (peripheral) insufficiency [facility] Diagnosis Pre-operative examination- Primary Preoperative examination, unspecified Elevated glucose level Squamous carcinoma of lung, 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[place] coronary artery of [place] heart without angina pectoris Abdominal aortic aneurysm (AAA) without rupture, unspecified part (HCC) Chronic obstructive pulmonary disease with acute exacerbation (HCC) Obstructive chronic bronchitis with exacerbation Anxiety Anxiety state, unspecified Essential hypertension Unspecified essential hypertension Hyperlipidemia, 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 and other lower urinary tract symptoms (LUTS) Prostate cancer (HCC) Malignant neoplasm of prostate PAD (peripheral artery disease) (HCC) Peripheral vascular disease, unspecified 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, unspecified ulcer stage (HCC) Former smoker Personal history of tobacco use, presenting hazards to health Peripheral vascular disease, unspecified (HCC)- Primary Peripheral vascular disease, unspecified documented in this encounter [facility] note* Diagnosis Pre-operative examination- Primary Preoperative examination, unspecified Elevated glucose level Squamous carcinoma of lung, 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[place] coronary artery of [place] heart without angina pectoris Abdominal aortic aneurysm (AAA) without rupture, unspecified part (HCC) Chronic obstructive pulmonary disease with acute exacerbation (HCC) Obstructive chronic bronchitis with exacerbation Anxiety Anxiety state, unspecified Essential hypertension Unspecified essential hypertension Hyperlipidemia, 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 and other lower urinary tract symptoms (LUTS) Prostate cancer (HCC) Malignant neoplasm of prostate PAD (peripheral artery disease) (HCC) Peripheral vascular disease, unspecified 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, unspecified ulcer stage (HCC) Former smoker Personal history of tobacco use, presenting hazards to health Peripheral vascular disease (HCC) Peripheral vascular disease, unspecified documented [facility]* Diagnosis Pre-operative examination- Primary Preoperative examination, unspecified Elevated glucose level Squamous carcinoma of lung, 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[place] coronary artery of [place] heart without angina pectoris Abdominal aortic aneurysm (AAA) without rupture, unspecified part (HCC) Chronic obstructive pulmonary disease with acute exacerbation (HCC) Obstructive chronic bronchitis with exacerbation Anxiety Anxiety state, unspecified Essential hypertension Unspecified essential hypertension Hyperlipidemia, 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 and other lower urinary tract symptoms (LUTS) Prostate cancer (HCC) Malignant neoplasm of prostate PAD (peripheral artery disease) (HCC) Peripheral vascular disease, unspecified 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, unspecified ulcer stage ([facility]) Former smoker Personal history of tobacco use, presenting hazards to health Essential hypertension Unspecified essential hypertension documented in this encounter [facility] note* Diagnosis Pre-operative examination- Primary Preoperative examination, unspecified Elevated glucose level Squamous carcinoma of lung, 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[place] coronary artery of [place] heart without angina pectoris Abdominal aortic aneurysm (AAA) without rupture, unspecified part (HCC) Chronic obstructive pulmonary disease with acute exacerbation (HCC) Obstructive chronic bronchitis with exacerbation Anxiety Anxiety state, unspecified Essential hypertension Unspecified essential hypertension Hyperlipidemia, 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 and other lower urinary tract symptoms (LUTS) Prostate cancer (HCC) Malignant neoplasm of prostate PAD (peripheral artery disease) (HCC) Peripheral vascular disease, unspecified 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, unspecified ulcer stage (HCC) Former smoker Personal history of tobacco use, presenting hazards to health Stage 3 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 ([facility]) [facility]* Diagnosis Pre-operative examination- Primary Preoperative examination, unspecified Elevated glucose level Squamous carcinoma of lung, 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[place] coronary artery of [place] heart without angina pectoris Abdominal aortic aneurysm (AAA) without rupture, unspecified part (HCC) Chronic obstructive pulmonary disease with acute exacerbation (HCC) Obstructive chronic bronchitis with exacerbation Anxiety Anxiety state, unspecified Essential hypertension Unspecified essential hypertension Hyperlipidemia, 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 and other lower urinary tract symptoms (LUTS) Prostate cancer (HCC) Malignant neoplasm of prostate PAD (peripheral artery disease) (HCC) Peripheral vascular disease, unspecified 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, unspecified ulcer stage (HCC) Former smoker Personal history of tobacco use, presenting hazards to health Skin ulcer, limited to breakdown of skin (HCC)- Primary Peripheral arterial disease (HCC) Peripheral vascular disease, unspecified Venous insufficiency Unspecified venous (peripheral) insufficiency documented in this encounter [facility]* Diagnosis Pre-operative examination- Primary Preoperative examination, unspecified Elevated glucose level Squamous carcinoma of lung, 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[place] coronary artery of [place] heart without angina pectoris Abdominal aortic aneurysm (AAA) without rupture, unspecified part (HCC) Chronic obstructive pulmonary disease with acute exacerbation (HCC) Obstructive chronic bronchitis with exacerbation Anxiety Anxiety state, unspecified Essential hypertension Unspecified essential hypertension Hyperlipidemia, 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 and other lower urinary tract symptoms (LUTS) Prostate cancer (HCC) Malignant neoplasm of prostate PAD (peripheral artery disease) (HCC) Peripheral vascular disease, unspecified 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, unspecified ulcer stage (HCC) Former smoker Personal history of tobacco use, presenting hazards to [facility] Anxiety Anxiety state, unspecified documented in this encounter [facility] note* Diagnosis Pre-operative examination- Primary Preoperative examination, unspecified Elevated glucose level Squamous carcinoma of lung, 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[place] coronary artery of [place] heart without angina pectoris Abdominal aortic aneurysm (AAA) without rupture, unspecified part (HCC) Chronic obstructive pulmonary disease with acute exacerbation (HCC) Obstructive chronic bronchitis with exacerbation Anxiety Anxiety state, unspecified Essential hypertension Unspecified essential hypertension Hyperlipidemia, 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 and other lower urinary tract symptoms (LUTS) Prostate cancer (HCC) Malignant neoplasm of prostate PAD (peripheral artery disease) (HCC) Peripheral vascular disease, unspecified 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, unspecified ulcer stage (HCC) Former smoker Personal history of tobacco use, presenting hazards to health Peripheral arterial disease (HCC)- Primary Peripheral vascular disease, unspecified documented in this [facility]* Diagnosis Pre-operative examination- Primary Preoperative examination, unspecified Elevated glucose level Squamous carcinoma of lung, 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[place] coronary artery of [place] heart without angina pectoris Abdominal aortic aneurysm (AAA) without rupture, unspecified part (HCC) Chronic obstructive pulmonary disease with acute exacerbation (HCC) Obstructive chronic bronchitis with exacerbation Anxiety Anxiety state, unspecified Essential hypertension Unspecified essential hypertension Hyperlipidemia, 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 and other lower urinary tract symptoms (LUTS) Prostate cancer (HCC) Malignant neoplasm of prostate PAD (peripheral artery disease) (HCC) Peripheral vascular disease, unspecified 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, unspecified ulcer stage (HCC) Former smoker Personal history of tobacco use, presenting hazards to health Skin ulcer, limited to breakdown of skin (HCC)- Primary Peripheral arterial disease (HCC) Peripheral vascular disease, unspecified Venous insufficiency Unspecified venous (peripheral) insufficiency documented in this encounter [facility]* Diagnosis Pre-operative examination- Primary Preoperative examination, unspecified Elevated glucose level Squamous carcinoma of lung, 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[place] coronary artery of [place] heart without angina pectoris Abdominal aortic aneurysm (AAA) without rupture, unspecified part (HCC) Chronic obstructive pulmonary disease with acute exacerbation (HCC) Obstructive chronic bronchitis with exacerbation Anxiety Anxiety state, unspecified Essential hypertension Unspecified essential hypertension Hyperlipidemia, 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 and other lower urinary tract symptoms (LUTS) Prostate cancer (HCC) Malignant neoplasm of prostate PAD (peripheral artery disease) (HCC) Peripheral vascular disease, unspecified 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, unspecified ulcer stage (HCC) Former smoker Personal history of tobacco use, presenting hazards to health Peripheral vascular disease (HCC)- Primary Peripheral vascular disease, unspecified Chronic pulmonary embolism without acute cor pulmonale, unspecified pulmonary embolism type (HCC) Chronic hypoxemic respiratory failure (HCC) Chronic respiratory failure documented in this encounter [facility] note* Diagnosis Pre-operative examination- Primary Preoperative examination, unspecified Elevated glucose level Squamous carcinoma of lung, 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[place] coronary artery of [place] heart without angina pectoris Abdominal aortic aneurysm (AAA) without rupture, unspecified part (HCC) Chronic obstructive pulmonary disease with acute exacerbation (HCC) Obstructive chronic bronchitis with exacerbation Anxiety Anxiety state, unspecified Essential hypertension Unspecified essential hypertension Hyperlipidemia, 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 and other lower urinary tract symptoms (LUTS) Prostate cancer (HCC) Malignant neoplasm of prostate PAD (peripheral artery disease) (HCC) Peripheral vascular disease, unspecified 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, unspecified ulcer stage (HCC) Former smoker Personal history of tobacco use, presenting hazards to health Squamous carcinoma of lung, left (HCC) documented in this encounter [facility]* Diagnosis Pre-operative examination- Primary Preoperative examination, unspecified Elevated glucose level Squamous carcinoma of lung, 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[place] coronary artery of [place] heart without angina pectoris Abdominal aortic aneurysm (AAA) without rupture, unspecified part (HCC) Chronic obstructive pulmonary disease with acute exacerbation (HCC) Obstructive chronic bronchitis with exacerbation Anxiety Anxiety state, unspecified Essential hypertension Unspecified essential hypertension Hyperlipidemia, 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 and other lower urinary tract symptoms (LUTS) Prostate cancer (HCC) Malignant neoplasm of prostate PAD (peripheral artery disease) (HCC) Peripheral vascular disease, unspecified 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, unspecified ulcer stage (HCC) Former smoker Personal history of tobacco use, presenting hazards to health Skin ulcer, limited to breakdown of skin (HCC)- Primary Peripheral arterial disease (HCC) Peripheral vascular disease, unspecified documented in this encounter [facility] note* Diagnosis Pre-operative examination- Primary Preoperative examination, unspecified Elevated glucose level Squamous carcinoma of lung, 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[place] coronary artery of [place] heart without angina pectoris Abdominal aortic aneurysm (AAA) without rupture, unspecified part (HCC) Chronic obstructive pulmonary disease with acute exacerbation (HCC) Obstructive chronic bronchitis with exacerbation Anxiety Anxiety state, unspecified Essential hypertension Unspecified essential hypertension Hyperlipidemia, 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 and other lower urinary tract symptoms (LUTS) Prostate cancer (HCC) Malignant neoplasm of prostate PAD (peripheral artery disease) (HCC) Peripheral vascular disease, unspecified 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, unspecified ulcer stage (HCC) Former smoker Personal history of tobacco use, presenting hazards to health Squamous carcinoma of lung, left (HCC)- Primary Chronic pulmonary embolism without acute cor pulmonale, unspecified pulmonary embolism type (HCC) History of prostate cancer Personal history of malignant neoplasm of prostate documented in this encounter [facility] note* Diagnosis Pre-operative examination- Primary Preoperative examination, unspecified Elevated glucose level Squamous carcinoma of lung, 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[place] coronary artery of [place] heart without angina pectoris Abdominal aortic aneurysm (AAA) without rupture, unspecified part (HCC) Chronic obstructive pulmonary disease with acute exacerbation (HCC) Obstructive chronic bronchitis with exacerbation Anxiety Anxiety state, unspecified Essential hypertension Unspecified essential hypertension Hyperlipidemia, 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 and other lower urinary tract symptoms (LUTS) Prostate cancer (HCC) Malignant neoplasm of prostate PAD (peripheral artery disease) (HCC) Peripheral vascular disease, unspecified 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, unspecified ulcer stage (HCC) Former smoker Personal history of tobacco use, presenting hazards to health Essential hypertension- Primary Unspecified essential hypertension [facility] Diagnosis Pre-operative examination- Primary Preoperative examination, unspecified Elevated glucose level Squamous carcinoma of lung, 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[place] coronary artery of [place] heart without angina pectoris Abdominal aortic aneurysm (AAA) without rupture, unspecified part (HCC) Chronic obstructive pulmonary disease with acute exacerbation (HCC) Obstructive chronic bronchitis with exacerbation Anxiety Anxiety state, unspecified Essential hypertension Unspecified essential hypertension Hyperlipidemia, 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 and other lower urinary tract symptoms (LUTS) Prostate cancer (HCC) Malignant neoplasm of prostate PAD (peripheral artery disease) (HCC) Peripheral vascular disease, unspecified 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, unspecified ulcer stage (HCC) Former smoker Personal history of tobacco use, presenting hazards to health COPD, frequent exacerbations (HCC)- Primary Chronic airway obstruction, not elsewhere classified Bronchiectasis without complication (HCC) Bronchiectasis without acute exacerbation Chronic hypoxemic respiratory failure (HCC) Chronic respiratory failure History of cancer of lower lobe bronchus or lung Personal history of malignant neoplasm of bronchus and lung Former smoker Personal history of tobacco use, presenting hazards to health Encounter for long-term (current) use of medications Encounter for long-term (current) use of other medications [facility] Diagnosis Pre-operative examination- Primary Preoperative examination, unspecified Elevated glucose level Squamous carcinoma of lung, 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[place] coronary artery of [place] heart without angina pectoris Abdominal aortic aneurysm (AAA) without rupture, unspecified part (HCC) Chronic obstructive pulmonary disease with acute exacerbation (HCC) Obstructive chronic bronchitis with exacerbation Anxiety Anxiety state, unspecified Essential hypertension Unspecified essential hypertension Hyperlipidemia, 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 and other lower urinary tract symptoms (LUTS) Prostate cancer (HCC) Malignant neoplasm of prostate PAD (peripheral artery disease) (HCC) Peripheral vascular disease, unspecified 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, unspecified ulcer stage (HCC) Former smoker Personal history of tobacco use, presenting hazards to health Chronic pulmonary embolism without acute cor pulmonale, unspecified pulmonary embolism type (HCC) documented in this encounter [facility]* Diagnosis Pre-operative examination- Primary Preoperative examination, unspecified Elevated glucose level Squamous carcinoma of lung, 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[place] coronary artery of [place] heart without angina pectoris Abdominal aortic aneurysm (AAA) without rupture, unspecified part (HCC) Chronic obstructive pulmonary disease with acute exacerbation (HCC) Obstructive chronic bronchitis with exacerbation Anxiety Anxiety state, unspecified Essential hypertension Unspecified essential hypertension Hyperlipidemia, 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 and other lower urinary tract symptoms (LUTS) Prostate cancer (HCC) Malignant neoplasm of prostate PAD (peripheral artery disease) (HCC) Peripheral vascular disease, unspecified 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, unspecified ulcer stage (HCC) Former smoker Personal history of tobacco use, presenting hazards to health Anxiety Anxiety state, unspecified documented in this encounter [facility] note* Diagnosis Pre-operative examination- Primary Preoperative examination, unspecified Elevated glucose level Squamous carcinoma of lung, 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[place] coronary artery of [place] heart without angina pectoris Abdominal aortic aneurysm (AAA) without rupture, unspecified part (HCC) Chronic obstructive pulmonary disease with acute exacerbation (HCC) Obstructive chronic bronchitis with exacerbation Anxiety Anxiety state, unspecified Essential hypertension Unspecified essential hypertension Hyperlipidemia, 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 and other lower urinary tract symptoms (LUTS) Prostate cancer (HCC) Malignant neoplasm of prostate PAD (peripheral artery disease) (HCC) Peripheral vascular disease, unspecified 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, unspecified ulcer stage (HCC) Former smoker Personal history of tobacco use, presenting hazards to health PAD (peripheral artery disease) (HCC)- Primary Peripheral vascular disease, unspecified documented in this encounter [facility] note* Diagnosis Pre-operative examination- Primary Preoperative examination, unspecified Elevated glucose level Squamous carcinoma of lung, 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[place] coronary artery of [place] heart without angina pectoris Abdominal aortic aneurysm (AAA) without rupture, unspecified part Chronic obstructive pulmonary disease with acute exacerbation (HCC) Obstructive chronic bronchitis with exacerbation Anxiety Anxiety state, unspecified Essential hypertension Unspecified essential hypertension Hyperlipidemia, 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 and other lower urinary tract symptoms (LUTS) Prostate cancer (HCC) Malignant neoplasm of prostate PAD (peripheral artery disease) Peripheral vascular disease, unspecified 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, unspecified ulcer stage (HCC) Former smoker Personal history of tobacco use, presenting hazards to health Hospital discharge follow-up- Primary Other follow-up examination 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) Chronic hypoxemic respiratory failure (HCC) Chronic respiratory failure Bronchiectasis without complication (HCC) Bronchiectasis without acute exacerbation History of cancer of lower lobe bronchus or lung Personal history of malignant neoplasm of bronchus and lung documented [facility]* Diagnosis Pre-operative examination- Primary Preoperative examination, unspecified Elevated glucose level Squamous carcinoma of lung, 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[place] coronary artery of [place] heart without angina pectoris Abdominal aortic aneurysm (AAA) without rupture, unspecified part Chronic obstructive pulmonary disease with acute exacerbation (HCC) Obstructive chronic bronchitis with exacerbation Anxiety Anxiety state, unspecified Essential hypertension Unspecified essential hypertension Hyperlipidemia, 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 and other lower urinary tract symptoms (LUTS) Prostate cancer (HCC) Malignant neoplasm of prostate PAD (peripheral artery disease) Peripheral vascular disease, unspecified 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, unspecified ulcer stage (HCC) Former smoker Personal history of tobacco use, presenting hazards to health Essential hypertension Unspecified essential hypertension [facility] Diagnosis Pre-operative examination- Primary Preoperative examination, unspecified Elevated glucose level Squamous carcinoma of lung, 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[place] coronary artery of [place] heart without angina pectoris Abdominal aortic aneurysm (AAA) without rupture, unspecified part Chronic obstructive pulmonary disease with acute exacerbation (HCC) Obstructive chronic bronchitis with exacerbation Anxiety Anxiety state, unspecified Essential hypertension Unspecified essential hypertension Hyperlipidemia, 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 and other lower urinary tract symptoms (LUTS) Prostate cancer (HCC) Malignant neoplasm of prostate PAD (peripheral artery disease) Peripheral vascular disease, unspecified 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, unspecified ulcer stage (HCC) Former smoker Personal history of tobacco use, presenting hazards to health Prostate cancer (HCC)- Primary Malignant neoplasm of prostate documented in this [facility]* Diagnosis Pre-operative examination- Primary Preoperative examination, unspecified Elevated glucose level Squamous carcinoma of lung, 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[place] coronary artery of [place] heart without angina pectoris Abdominal aortic aneurysm (AAA) without rupture, unspecified part Chronic obstructive pulmonary disease with acute exacerbation (HCC) Obstructive chronic bronchitis with exacerbation Anxiety Anxiety state, unspecified Essential hypertension Unspecified essential hypertension Hyperlipidemia, 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 and other lower urinary tract symptoms (LUTS) Prostate cancer (HCC) Malignant neoplasm of prostate PAD (peripheral artery disease) Peripheral vascular disease, unspecified 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, unspecified ulcer stage (HCC) Former smoker Personal history of tobacco use, presenting hazards to health 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) Other specified intestinal malabsorption Gastrointestinal hemorrhage associated with gastric ulcer documented in this encounter [facility] note* Diagnosis Pre-operative examination- Primary Preoperative examination, unspecified Elevated glucose level Squamous carcinoma of lung, 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[place] coronary artery of [place] heart without angina pectoris Abdominal aortic aneurysm (AAA) without rupture, unspecified part Chronic obstructive pulmonary disease with acute exacerbation (HCC) Obstructive chronic bronchitis with exacerbation Anxiety Anxiety state, unspecified Essential hypertension Unspecified essential hypertension Hyperlipidemia, 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 and other lower urinary tract symptoms (LUTS) Prostate cancer (HCC) Malignant neoplasm of prostate PAD (peripheral artery disease) Peripheral vascular disease, unspecified 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, unspecified ulcer stage (HCC) Former smoker Personal history of tobacco use, presenting hazards to health Iron malabsorption (HCC)- Primary Other specified intestinal malabsorption Iron 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 loss Iron deficiency anemia secondary to blood loss (chronic) Gastrointestinal hemorrhage associated with gastric ulcer documented in this encounter [facility] note* Diagnosis Pre-operative examination- Primary Preoperative examination, unspecified Elevated glucose level Squamous carcinoma of lung, 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[place] coronary artery of [place] heart without angina pectoris Abdominal aortic aneurysm (AAA) without rupture, unspecified part Chronic obstructive pulmonary disease with acute exacerbation (HCC) Obstructive chronic bronchitis with exacerbation Anxiety Anxiety state, unspecified Essential hypertension Unspecified essential hypertension Hyperlipidemia, 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 and other lower urinary tract symptoms (LUTS) Prostate cancer (HCC) Malignant neoplasm of prostate PAD (peripheral artery disease) Peripheral vascular disease, unspecified 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, unspecified ulcer stage (HCC) Former smoker Personal history of tobacco use, presenting hazards to [place] [facility] Stage 3 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 ([facility])- Primary documented in this encounter [facility] note* Diagnosis Pre-operative examination- Primary Preoperative examination, unspecified Elevated glucose level Squamous carcinoma of lung, 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[place] coronary artery of [place] heart without angina pectoris Abdominal aortic aneurysm (AAA) without rupture, unspecified part Chronic obstructive pulmonary disease with acute exacerbation (HCC) Obstructive chronic bronchitis with exacerbation Anxiety Anxiety state, unspecified Essential hypertension Unspecified essential hypertension Hyperlipidemia, 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 and other lower urinary tract symptoms (LUTS) Prostate cancer (HCC) Malignant neoplasm of prostate PAD (peripheral artery disease) Peripheral vascular disease, unspecified 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, unspecified ulcer stage (HCC) Former smoker Personal history of tobacco use, presenting hazards to health Iron malabsorption ([facility])- Primary Other specified intestinal malabsorption Iron 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 loss Iron deficiency anemia secondary to blood loss (chronic) Gastrointestinal hemorrhage associated with gastric ulcer documented in this encounter [facility] note* Diagnosis Pre-operative examination- Primary Preoperative examination, unspecified Elevated glucose level Squamous carcinoma of lung, 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[place] coronary artery of [place] heart without angina pectoris Abdominal aortic aneurysm (AAA) without rupture, unspecified part Chronic obstructive pulmonary disease with acute exacerbation (HCC) Obstructive chronic bronchitis with exacerbation Anxiety Anxiety state, unspecified Essential hypertension Unspecified essential hypertension Hyperlipidemia, 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 and other lower urinary tract symptoms (LUTS) Prostate cancer (HCC) Malignant neoplasm of prostate PAD (peripheral artery disease) Peripheral vascular disease, unspecified 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, unspecified ulcer stage (HCC) Former smoker Personal history of tobacco use, presenting hazards to health Iron malabsorption (HCC)- Primary Other specified intestinal malabsorption Iron 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 loss Iron deficiency anemia secondary to blood loss (chronic) Gastrointestinal hemorrhage associated with gastric ulcer [facility] Diagnosis Pre-operative examination- Primary Preoperative examination, unspecified Elevated glucose level Squamous carcinoma of lung, 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[place] coronary artery of [place] heart without angina pectoris Abdominal aortic aneurysm (AAA) without rupture, unspecified part Chronic obstructive pulmonary disease with acute exacerbation (HCC) Obstructive chronic bronchitis with exacerbation Anxiety Anxiety state, unspecified Essential hypertension Unspecified essential hypertension Hyperlipidemia, 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 and other lower urinary tract symptoms (LUTS) Prostate cancer (HCC) Malignant neoplasm of prostate PAD (peripheral artery disease) Peripheral vascular disease, unspecified 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, unspecified ulcer stage (HCC) Former smoker Personal history of tobacco use, presenting hazards to health Anxiety- Primary Anxiety state, unspecified Depression, unspecified depression type Essential hypertension Unspecified essential hypertension Lower leg edema Edema Elevated glucose Other abnormal glucose Hyperlipidemia, mixed Mixed hyperlipidemia Coronary artery disease involving [place] coronary artery of [place]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 3 Postsurgical aortocoronary bypass status PAD (peripheral artery disease) Peripheral vascular disease, unspecified Prostate cancer (HCC) Malignant neoplasm of prostate Acute and chronic respiratory failure with hypoxia (HCC) Acute and chronic respiratory failure Chronic pulmonary embolism without acute cor pulmonale, unspecified pulmonary embolism type (HCC) Chronic obstructive pulmonary disease, unspecified COPD type (HCC) Gastrointestinal hemorrhage associated with gastric ulcer Iron 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 loss Iron deficiency anemia secondary to blood loss (chronic) Nausea Nausea alone [facility]* Diagnosis Pre-operative examination- Primary Preoperative examination, unspecified Elevated glucose level Squamous carcinoma of lung, 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[place] coronary artery of [place] heart without angina pectoris Abdominal aortic aneurysm (AAA) without rupture, unspecified part Chronic obstructive pulmonary disease with acute exacerbation (HCC) Obstructive chronic bronchitis with exacerbation Anxiety Anxiety state, unspecified Essential hypertension Unspecified essential hypertension Hyperlipidemia, 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 and other lower urinary tract symptoms (LUTS) Prostate cancer (HCC) Malignant neoplasm of prostate PAD (peripheral artery disease) Peripheral vascular disease, unspecified 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, unspecified ulcer stage (HCC) Former smoker Personal history of tobacco use, presenting hazards to health Iron 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 loss- Primary Iron deficiency anemia secondary to blood loss (chronic) documented in this encounter [facility] note* Diagnosis Pre-operative examination- Primary Preoperative examination, unspecified Elevated glucose level Squamous carcinoma of lung, 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[place] coronary artery of [place] heart without angina pectoris Abdominal aortic aneurysm (AAA) without rupture, unspecified part Chronic obstructive pulmonary disease with acute exacerbation (HCC) Obstructive chronic bronchitis with exacerbation Anxiety Anxiety state, unspecified Essential hypertension Unspecified essential hypertension Hyperlipidemia, 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 and other lower urinary tract symptoms (LUTS) Prostate cancer (HCC) Malignant neoplasm of prostate PAD (peripheral artery disease) Peripheral vascular disease, unspecified 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, unspecified ulcer stage (HCC) Former smoker Personal history of tobacco use, presenting hazards to health Coronary artery disease involving [place] coronary artery of [place] heart without angina pectoris- Primary Essential hypertension Unspecified essential hypertension Hyperlipidemia, mixed Mixed hyperlipidemia PAD (peripheral artery disease) Peripheral vascular disease, unspecified Abdominal aortic aneurysm (AAA) without rupture, unspecified part documented in this encounter [facility] note* Diagnosis Pre-operative examination- Primary Preoperative examination, unspecified Elevated glucose level Squamous carcinoma of lung, 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[place] coronary artery of [place] heart without angina pectoris Abdominal aortic aneurysm (AAA) without rupture, unspecified part Chronic obstructive pulmonary disease with acute exacerbation (HCC) Obstructive chronic bronchitis with exacerbation Anxiety Anxiety state, unspecified Essential hypertension Unspecified essential hypertension Hyperlipidemia, 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 and other lower urinary tract symptoms (LUTS) Prostate cancer (HCC) Malignant neoplasm of prostate PAD (peripheral artery disease) Peripheral vascular disease, unspecified 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, unspecified ulcer stage (HCC) Former smoker Personal history of tobacco use, presenting hazards to health Stage 3 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 ([facility])- Primary Chronic hypoxemic respiratory failure (HCC) Chronic respiratory failure Bronchiectasis without complication (HCC) Bronchiectasis without acute exacerbation History of cancer of lower lobe bronchus or lung Personal history of malignant neoplasm of bronchus and lung Iron 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 loss Iron deficiency anemia secondary to blood loss (chronic) [facility]* Diagnosis Pre-operative examination- Primary Preoperative examination, unspecified Elevated glucose level Squamous carcinoma of lung, 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[place] coronary artery of [place] heart without angina pectoris Abdominal aortic aneurysm (AAA) without rupture, unspecified part Chronic obstructive pulmonary disease with acute exacerbation (HCC) Obstructive chronic bronchitis with exacerbation Anxiety Anxiety state, unspecified Essential hypertension Unspecified essential hypertension Hyperlipidemia, 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 and other lower urinary tract symptoms (LUTS) Prostate cancer (HCC) Malignant neoplasm of prostate PAD (peripheral artery disease) Peripheral vascular disease, unspecified 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, unspecified ulcer stage (HCC) Former smoker Personal history of tobacco use, presenting hazards to health Malignant neoplasm of unspecified part of unspecified bronchus or lung (HCC)- Primary Lung nodules Other nonspecific abnormal finding of lung field [facility] Diagnosis Pre-operative examination- Primary Preoperative examination, unspecified Elevated glucose level Squamous carcinoma of lung, 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[place] coronary artery of [place] heart without angina pectoris Abdominal aortic aneurysm (AAA) without rupture, unspecified part Chronic obstructive pulmonary disease with acute exacerbation (HCC) Obstructive chronic bronchitis with exacerbation Anxiety Anxiety state, unspecified Essential hypertension Unspecified essential hypertension Hyperlipidemia, 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 and other lower urinary tract symptoms (LUTS) Prostate cancer (HCC) Malignant neoplasm of prostate PAD (peripheral artery disease) Peripheral vascular disease, unspecified 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, unspecified ulcer stage (HCC) Former smoker Personal history of tobacco use, presenting hazards to health Squamous carcinoma of lung, left (HCC) [facility] Jacob Suazo [facility] Note Date/Time May 22, 2024 3:5 6pm [facility] System Medical Records Department [address] [place] [address] H&P Exam - Hospitalist 05/22/24 1514 MR#: [id number] Acct: [id number] Name: OSWALDO CORLEY Rep #:[id number] : 1940 83 From: Jacob womack DO PCP: Dr. Mei Cummins MD Status:AD M IN Location: [facility] [id number] HPI - General General Date of Admission: 05/22/24 Date of Service: 05/22/24 Chief Complaint: Worsening shortness of breath HPI Narrative OSWALDO CORLEY, is a 83 M who presented to [facility] ED on 05/22/2024 with worsening shortness of breath. Patient has history of COPD with chronic respiratory failure on 4 to 5 L nasal cannula at baseline. Was last hospitalized here in January for a COPD exacerbation with suspected pneumonia. He recovered well during that hospitalization and was discharged home on hospital day 4. Patient states today that he has had increasing shortness of breath since Thursday. He was able to work outside on without issue. Denies any recent sick contacts that he is aware of. Today he had significant worsening shortness of breath to the point where he could only walk a few steps without getting very dyspneic. In the ED he was breathing 40-45 times per minute initially. Lactate was 2.7. He was mildly hypoxic to the mid 80s on 4 Lnasal cannula. He was given a breathing treatment and dose of steroids and his work of breathing did moderately improve at that time. CTA chest showed no PE, did show bibasilar groundglass opacities that were new in comparison to last CT chest that was done in September. Patient also has history of left lung cancer with resection and this area of the CT scan was the same, and chronic scarring changes were also noted. COVID/flu/RSV negative. Given concern for COPD exacerbation and pneumonia, hospitalist was contacted for admission. I saw the patient at bedside in the ED, was present. Patient was sitting back in bed and had mild increased work of breathing noted with pursed lips, butotherwise was conversing normally and in no acute distress. He had good skin color and appeared well-hydrated. noted that he does not appear nearly as sick as he has on previous admissions. Patient reports having a runny nose overthe past week or so. He denies any fevers or chills. Denies any chest pain or lower extremity swelling. No other acute concerns at this time. [facility] Medical History COPD exacerbation Angina at rest Pulmonary embolus COVID Fecal occult blood test positive Abnormal chest CT COPD with acute exacerbation Squamous cell carcinoma of left lung Lung mass Depression Myocardial infarct Coronary artery disease Pulmonary neoplasm Wears glasses Wears dentures Cancer Anxiety Abrasion History of steroid therapy Prostate disease High cholesterol Injury of back Syncope History of weight loss Former smoker COPD (chronic obstructive pulmonary disease) On home oxygen therapy Shortness of breath on exertion Chronic cough History of stress test Cardiology follow-up encounter Chest pain No pertinent family history 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 Nocturnal hypoxemia Chronic hypoxemic respiratory failure Bronchiectasis Prostate CA CAD (coronary artery disease) HLD (hyperlipidemia) Benign essential HTN Home Medications ?Medication ?Instructions ?Recorded ?Last Taken ?Type nitroglycerin 0.4 mg sublingual 0.4 mg sublingual Q5M PRN Chest 12/29/14 1 Week Ago History tablet Pain ~07/02/20 fluticasone propionate 230 2 puff inhalation BID breat nicho 08/07/22 05/22/24 History mcg-salmeterol 21 mcg/actuation HFA inhaler (Advair HFA) atorvastatin 40 mg tablet 40 mg PO QHS cholesterol 05/21/24 History duloxetine 30 mg capsule,delayed 30 mg PO QPM DEPRESSI ON 03/25/23 05/21/24 History release tamsulosin 0.4 mg capsule 0.4 mg PO QPM BLADDER/ PROST ATE 03/25/23 05/21/24 History tiotropium bromide 2.5 2 puff inhalation DAILY copd 03/25/23 10/05/23 History mcg/actuation mist for inhalation (Spiriva Respimat) ezetimibe 10 mg tablet 10 mg PO DAILY cholesterol 0 09/28/23 05/21/24 History apixaban 5 mg tablet (Eliquis) 5 mg PO BID blood thinn er 10/05/23 05/22/24 History albuterol sulfate 90 mcg/actuation 2 puff inhalation Q 4H PRN wheezing 02/19/24 Unknown History aerosol inhaler aspirin 81 mg tablet,delayed 81 mg PO DAILY heart 01/3105/21/24 History release (Enteric Coated Aspirin) lorazepam 1 mg tablet 1 mg PO TID anxiety 02/19/24 05/22/24 History metoprolol tartrate 25 mg tablet 12.5 mg PO BID heart 02/20/24 05/22/24 History oxycodone 5 mg tablet 5 mg PO Q4H PRN chronic pain 02/21/24 05/22/24 History ondansetron 4 mg disintegrating 4 mg PO DAILY PRN naus ea and 03/30/24 Unknown History tablet vomiting roflumilast 500 mcg tablet 500 mcg PO DAILY 03/30/24 0 05/21/24 History collagenase clostridium histo. 250 1 applic topical DA SHELIA 05/22/24 05/21/24 History unit/gram topical ointment (Santyl) cyclosporine 0.05 % eye drops in a 1 drp ophthalmic (e ye) BID 05/22/24 05/21/24 History dropperette (Restasis) fluconazole 100 mg tablet 100 mg PO DAILY 05/22/24 History furosemide 20 mg tablet (Lasix) 20 mg PO DAILY weight gain 05/22/24 05/21/24 History guaifenesin 600 mg tablet, 1,200 mg PO BID cough 05/2205/22/24 History extended release 12 hr (Mucinex) prednisone 10 mg tablet 10 mg PO DAILY 05/22/2405/01 History Allergy/AdvReac Type Severity Reaction Status Date / Time isosorbide (From Imdur) Allergy Other-patient Verified 05/22/24 12:03 blacks out Family History Mother Cancer Father Heart disease COPD (chronic obstructive pulmonary disease) Surgical History Hx of CABG Hx of heart artery stent Hx of transurethral resection of prostate Hx of pneumonectomy Hx of CABG No pertinent past surgical history Social History household members: spouse Smoking Status: Former smoker Tobacco: How many years used: 45 Electronic Cigarette Use: not used how long ago did patient quit smokin, second hand exposure: Yes alcohol intake: never substance use type: does not use ROS Constitutional Constitutional: Denies chills, fatigue, fever(s) or weakness Eyes Eyes: Denies change in vision ENT HEENT: Reports nasal congestion; Denies nasal discharge, post nasal drip or sorethroat Cardiovascular Cardiovascular: Denies chest pain Respiratory/Chest Respiratory/Chest: Reports cough, dyspnea, shortness of breath at rest, shortness of breath with exertion and wheezing; Denies productive cough Gastrointestinal Gastrointestinal: Denies abdominal pain Genitourinary Genitourinary: Denies dysuria Musculoskeletal Musculoskeletal: Denies arthralgias or myalgias Neurologic Neurologic: Denies dizziness or headache(s) Vital Signs Vital Signs Vital Signs: 05/22/24 12:03 05/22/24 12:14 05/22/24 12:50 Temperature 97.4 F L Temperature Source Temporal Pulse Rate 106 H 80 Respiratory Rate 38 H 22 H Respiratory Effort Normal Short of Breath Labored Respiratory Depth Normal Respiratory Pattern Normal Tachypnea Blood Pressure 117/59 L Blood Pressure Mean 78 Pulse Ox 86 Oxygen Delivery Method Nasal Cannula Nasal Cannula Oxygen Flow Rate (L/min) 5 5 05/22/24 13:01 05/22/24 13:18 05/22/24 14:00 Temperature Temperature Source Pulse Rate 79 96 Respiratory Rate 18 28 H Respiratory Effort Respiratory Depth Respiratory Pattern Blood Pressure 122/56 H 146/77 H Blood Pressure Mean 78 100 Pulse Ox 98 100 100 Oxygen Delivery Method Nasal Cannula Nasal Cannula Nasal Cannula Oxygen Flow Rate (L/min) 5 4 05/22/24 15:00 Temperature Temperature Source Pulse Rate 92 Respiratory Rate 26 H Respiratory Effort Respiratory Depth Respiratory Pattern Blood Pressure 111/63 Blood Pressure Mean 79 Pulse Ox 100 Oxygen Delivery Method Nasal Cannula Oxygen Flow Rate (L/min) Weight Weight: 76.7 kg Body Mass Index (BMI) 22.9 Physical Exam Const alert, oriented x3, no apparent distress and average body habitus Constitutional Narrative: Pleasant elderly male, sitting back comfortably in bed, mild increased work of breathing with pursed lips noted but otherwise good skin color and turgor, and patient conversing normally with no conversational dyspnea. General Appearance: cooperative and comfortable HEENT normocephalic, head/scalp atraumatic, hearing grossly normal bilaterally, nasal mucous membranes and turbinates normal and moist oral mucous membranes Eyes PERRL, EOMs intact bilaterally and conjunctivae normal Neck full ROM Chest inspection of chest normal Resp no use of accessory muscles Resp Narrative: Mild increased work of breathing with pursed lip breathing noted on 5 L nasal cannula. Moderately diminished breath sounds bilaterally throughout but no wheezing or crackles noted. Cardio regular rate, regular rhythm, no murmurs and peripheral pulses 2+ throughout GI normal to inspection, nondistended, normoactive bowel sounds, soft to palpation,non-tender and non-distended Back/Spine normal ROM Extremity normal to inspection, full ROM and no pedal edema Skin no rashes or lesions noted Neuro moves all extremities and no focal motor deficits Speech: speech normal Motor Exam: strength 5/5 throughout Psych mental status grossly normal Results Lab / Micro Data 05/22/24 12:38 05/22/24 12:38 Labs: Laboratory Results - last 24 hr 05/22/24 12:38: WBC 13.5 H, RBC 3.73 L, Hgb 10.2 L, Hct 33.4 L, MCV 89.5, MCH 27.3, MCHC 30.5 L, RDW Std Deviation 54.5 H, RDW Coeff of Estelita 16.5 H, Plt Count 197, MPV 8.9, Immature Gran % (Auto) 0.600, Neut % (Auto) 95.5 H, Lymph % (Auto)1.3 L, Posey % (Auto) 2.4, Eos % (Auto) 0.1, Baso % (Auto) 0.1, Absolute Neuts (auto) 12.9 H, Absolute Lymphs (auto) 0.18 L, Nucleated RBC % 0, Sodium 140, Potassium 4.9, Chloride 102, Carbon Dioxide 26.4, Anion Gap 11, BUN 16, Creatinine 0.75, Estim Creat Clear Calc 78.56, Est GFR (MDRD) Non-Af 91, BUN/Creatinine Ratio 21.8 H, Glucose 180 H, Lactic Acid 2.7 H*, Calcium 9.2, Total Bilirubin 0.50, AST 22, ALT 12, Alkaline Phosphatase 82, Total Protein 6.0, Albumin 3.4, Globulin 2.7, Albumin/Globulin Ratio 1.3 Micro: Microbiology 05/22/24 12:25 Mucosa - Nose SARS-CoV-2, Influenza & RSV (PCR) - Final Imaging Radiology Impression Chest X-Ray 05/22/24 13:30 IMPRESSION: Prior sternotomy again noted. Persistent left upper and lower lung areas increased density, most probably representing scarring, not clearly changed. Areas of lesser changes are seen of the right, with marked interval improvement in the right lower lung airspace disease compared with the study of 02/19/2024. No new or worsened pneumonic process is seen. Probable small left pleural effusion. No definite right pleural effusion is seen. No pneumothorax is noted. The cardiomediastinal silhouette is stable, without evidence of cardiomegaly. Reading Location: [address] Chest CTA 05/22/24 13:50 IMPRESSION: 1. Although predominantly ground-glass opacities, extensive changes are seen in the right lower lobe, concerning for inflammation/infection. 2. Progression of areas of left lower lobe and left upper lobe scarring, also again seen with left lower lobe pleural-based loculated air collection. 3. No evidence of pulmonary embolism. Reading Location: [address] Assessment & Plan Assessment/Plan (1) Acute exacerbation of chronic obstructive pulmonary disease: (2) Chronic respiratory failure with hypoxia and hypercapnia: (3) Acidosis, lactic: PLAN: Plan Patient is an 83-year-old male who presented [facility] ED on 05/22/2024 with worsening shortness of breath. 1. COPD exacerbation with concern for community-acquired pneumonia in setting of chronic hypoxic respiratory failure ? Admit under inpatient status to PCU. On home 4 to 5 L nasal cannula at baseline. Mildly hypoxic on home level of oxygen on admit but significant dyspnea both at rest and with exertion noted. CTA chest showed no PE but did show worse bilateral groundglass opacities in comparison to prior chest imaging concerning for viral versus bacterial pneumonia. COVID/flu/RSV negative. Respiratory PCR panel, sputum culture, urine antigens ordered. Procalcitonin ordered. Patient notably has been on prednisone 10 mg daily for the past few years. Will treat with IV steroids, scheduled DuoNebs and IV antibiotics for now. Wean supplemental oxygen as able. Continue other home inhalers. 2. Elevated lactic acid ? Lactate 2.7 on admit. Suspect secondary to hypoxia in setting of COPD exacerbation. Follow-up repeat lactic acid this evening. Chronic medical conditions: ? History of CAD with CABG and stenting, hypertension, hyperlipidemia: Normotensive on admit. Continue home aspirin, statin, Zetia, Lasix, Lopressor. ? Normocytic anemia, history of GI bleed with ABLA: Hemoglobin 10.3 on admit, stable at baseline around 10. Had GI bleed back in September with hemoglobin dropped to below 7 requiring blood transfusion. 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 Continue home PPI. ? BPH with obstructive symptoms: Continue home Flomax. ? Anxiety/depression: Continue home duloxetine and Ativan as needed. ? 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 ? Chronic pain: Continue home oxycodone as needed. ? History of left-sided lung cancer s/p surgical resection DVT prophylaxis: Not indicated, on Eliquis CODE STATUS: DNR CCA, DNI Expected disposition: Home, 2 to 3 days Total clinical time spent by myself addressing the patient's medical issues, reviewing all the data, and collaborating with patient's care team: 55 minutes. Charges/Coding Visit Charges Inpatient E&M: 63218 Init Hosp L2 05/22/24 5608 <Electronically signed by Jacob Suazo DO> Cosigner Signature (if applicable): CC: Dr. Jacob Suazo DO; Dr. Mei Cummins MD~ Signed [facility] Work Phone: Hospital Discharge instructions Additional Instructions Keflex antibiotic 1 pill 4 times a day for 10 days. Keep your scheduled appointment with your residential service technician and follow-up with him on Thursday. Return here if a lot worse before that time. Skin cream once the infection starts healing to help the wounds in your heels heal out.[facility] Work Phone: Reason for referral (narrative)* Diagnostic Procedure Only (Routine) - Closed Specialty Diagnoses / Procedures Referred By Contac t Referred To Contact XR IMAGING Diagnoses Pressure injury of right heel, unstageable (HCC) Procedures XR FOOT GENERAL 3V AP/LAT/OBL RIGHT RADEX FOOT COMPLETE MINIMUM 3 VIEWS Juan Carlos Viveros [address] [place] [address] Xr Imaging Referral ID Status Reason Start Date Expiration Date V isits Requested Visits Authorized [id number] Closed Auto-Generate d Referral 01/28/2022 02/27/2023 1 1 [facility] for referral (narrative)* Diagnostic Procedure Only (Routine) - Closed Specialty Diagnoses / Procedures Referred By Contac t Referred To Contact XR IMAGING Diagnoses Peripheral arterial disease (HCC) 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, with fat layer 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) Procedures XR FOOT GENERAL 3V AP/LAT/OBL RIGHT RADEX FOOT COMPLETE MINIMUM 3 VIEWS Juan Carlos [address] [place] [address] Xr Imaging Referral ID Status Reason Start Date Expiration Date V isits Requested Visits Authorized [id number] Closed Auto-Generate d Referral 02/18/2022 03/20/2023 1 1 [facility] for referral (narrative)* Diagnostic Procedure Only (Routine) - Closed Specialty Diagnoses / Procedures Referred By Contjuice t Referred To Contact XR IMAGING Diagnoses 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, with fat layer 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) Procedures XR FOOT GENERAL 3V AP/LAT/OBL RIGHT RADEX FOOT COMPLETE MINIMUM 3 VIEWS Juan Carlos [address] [place] [address] Xr Imaging Referral ID Status Reason Start Date Expiration Date V isits Requested Visits Authorized [id number] Closed Auto-Generate d Referral 03/19/2022 04/18/2023 1 1 [facility] for referral (narrative)* Diagnostic Procedure Only (Routine) - Pending Review Specialty Diagnoses / Procedures [facility] To Contact X[facility] Diagnoses 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, with fat layer 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) Procedures XR FOOT GENERAL 3V AP/LAT/OBL RIGHT RADEX FOOT COMPLETE MINIMUM 3 VIEWS Juan Carlos [address] [place] [address] Xr Imaging Referral ID Status Reason Start Date Expiration Date Visits Requested Visits Authorized [id number] Pending Review Auto-Generat ed Referral 04/16/2022 05/16/2023 1 1 [facility] for referral (narrative)* Outpatient Procedure (Routine) - Closed Specialty Diagnoses / Procedures Referred By Abby t Referred To Contact [facility] Diagnoses Encounter for preprocedural cardiovascular examination Procedures ECHO ECHO TTHRC R-T 2D W/WOM-MODE COMPL SPEC&COLR D Tyrell Vigil DO [address] [place] [address] [facility] [address] [place] [address] Referral ID Status Reason Start Date Expiration Date V isits Requested Visits Authorized [id number] Closed Auto-Generate d Referral 04/15/2022 04/15/2023 1 1 [facility] for referral (narrative)* Diagnostic Procedure Only (Routine) - Closed Specialty Diagnoses / Procedures [facility] Referred To Contact XR IMAGING Diagnoses Skin ulcer of right heel with fat layer 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) Procedures XR FOOT GENERAL 3V AP/LAT/OBL RIGHT RADEX FOOT COMPLETE MINIMUM 3 VIEWS Juan Carlos Viveros [address] [place] [address] Xr Imaging Referral ID Status Reason Start Date Expiration Date V isits Requested Visits Authorized [id number] Closed Auto-Generate d Referral 05/27/2022 06/26/2023 1 1 [facility] for referral (narrative)* Outpatient Procedure (Routine) - Closed Specialty Diagnoses / Procedures [facility] Referred To Contact [facility] Diagnoses Peripheral arterial disease (HCC) Procedures PVR ANK PRESS MARTITA VAS LAB NON-INVAS PHYSIOLOGIC STD EXTREMITY ART 2 LEVEL Tyrell Vigil DO [address] [place] [address] [facility] [address] [place] [address] Referral ID Status Reason Start Date Expiration Date V isits Requested Visits Authorized [id number] Closed Auto-Generate d Referral 06/03/2022 06/03/2023 1 1 * Outpatient Procedure (Routine) - Closed Specialty Diagnoses / Procedures Referred By Contac t Referred To Contact [facility] Diagnoses Peripheral arterial disease (HCC) Procedures US LEG ARTERIAL PERIPH UNL VAS LAB DUP-SCAN LXTR ART/ARTL BPGS UNI/LMTD STUDY Tyrell Vigil, DO [address] [place] [address] [facility] [address] [address] Referral ID Status Reason Start Date Expiration Date V isits Requested Visits Authorized [id number] Closed Auto-Generate d Referral 06/03/2022 06/03/2023 1 1 [facility] for referral (narrative)* Outpatient Procedure (Routine) - Pending Review Specialty Diagnoses / Procedures Referred By Contac t Referred To Contact [facility] Diagnoses Peripheral arterial disease (HCC) Procedures PVR ANK PRESS MARTITA VAS LAB NON-INVAS PHYSIOLOGIC STD EXTREMITY ART 2 LEVEL Tyrell Vigil, DO [address] [place] [address] [facility] [place] [id number] Referral ID Status Reason Start Date Expiration Date Visits Requested Visits Authorized [id number] Pending Review Auto-Generat ed Referral 07/29/2022 07/29/2023 1 1 * Outpatient Procedure (Routine) - Authorized Specialty Diagnoses / Procedures Referred By Contac t Referred To Contact [facility] Diagnoses Peripheral arterial disease (HCC) Procedures US LEG ARTERIAL PERIPH UNL VAS LAB DUP-SCAN LXTR ART/ARTL BPGS UNI/LMTD STUDY Tyrell Vigil, DO [address] [place] [address] [facility] [address] [address] Referral ID Status Reason Start Date Expiration Date Visits Requested Visits Authorized [id number] Authorized Auto-Generat ed Referral 07/29/2022 07/29/2023 1 1 [facility] for referral (narrative)* Outpatient Procedure (Routine) - Closed Specialty Diagnoses / Procedures Referred By Contac t Referred To [facility] Diagnoses Coronary artery disease involving [place] coronary artery of [place] heart without angina pectoris Essential hypertension Hyperlipidemia, mixed Procedures ECG COMPLETE ECG ROUTINE ECG W/LEAST 12 LDS W/I&R Bela Manzano MD [address] [place] [address] [address] Referral ID Status Reason Start Date Expiration Date V isits Requested Visits Authorized [id number] Closed Auto-Generate d Referral 09/23/2022 09/23/2023 1 1 [facility] for referral (narrative)* Outpatient Procedure (Routine) - Closed Specialty Diagnoses / Procedures Referred By Contac t Referred To Contact [facility] Diagnoses SOB (shortness of breath) Procedures LUNG DIFFUSION CAPACITY (DLCO) DIFFUSING CAPACITY Ab Calvillo MD [facility] [place] [address] [facility] [place] [address] [place] [id number] Referral ID Status Reason Start Date Expiration Date V isits Requested Visits Authorized [id number] Closed Auto-Generate d Referral 10/13/2022 11/12/2023 1 1 * Outpatient Procedure (Routine) - Closed Specialty Diagnoses / Procedures Referred By Contac t Referred To Contact [facility] Diagnoses SOB (shortness of breath) Procedures SPIROMETRY WITH DILATOR IF OBSTRUCTED BRNCDILAT RSPSE SPMTRY PRE&POST-BRNCDILAT Ab Jain MD [address] [place] [address] [facility] [place] [address] [place] [address] Referral ID Status Reason Start Date Expiration Date V isits Requested Visits Authorized [id number] Closed Auto-Generate d Referral 10/13/2022 11/12/2023 1 1 [facility] for referral (narrative)* Diagnostic Procedure Only (Routine) - Closed Specialty Diagnoses / Procedures Referred By Contac t Referred To Contact XR IMAGING Diagnoses Pressure injury of right heel, unstageable (HCC) Procedures XR FOOT GENERAL 3V AP/LAT/OBL RIGHT RADEX FOOT COMPLETE MINIMUM 3 VIEWS Juan Carlos Viveros [address] [place] [address] [place] [address] Referral ID Status Reason Start Date Expiration Date V isits Requested Visits Authorized [id number] Closed Auto-Generate d Referral 01/28/2022 02/27/2023 1 1 [facility] for referral (narrative)* Diagnostic Procedure Only (Routine) - Closed Specialty Diagnoses / Procedures Referred By Contac t Referred To Contact XR IMAGING Diagnoses Peripheral arterial disease (HCC) 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, with fat layer 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) Procedures XR FOOT GENERAL 3V AP/LAT/OBL RIGHT RADEX FOOT COMPLETE MINIMUM 3 VIEWS Juan Carlos Viveros [address] [place] [address] [place] [address] Referral ID Status Reason Start Date Expiration Date V isits Requested Visits Authorized [id number] Closed Auto-Generate d Referral 02/18/2022 03/20/2023 1 1 [facility] for referral (narrative)* Diagnostic Procedure Only (Routine) - Closed Specialty Diagnoses / Procedures Referred By Contac t Referred To Contact XR IMAGING Diagnoses Skin ulcer of right heel with fat layer 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) Peripheral arterial disease (HCC) Procedures XR FOOT GENERAL 3V AP/LAT/OBL RIGHT RADEX FOOT COMPLETE MINIMUM 3 VIEWS Juan Carlos [address] [place] [address] [place] [address] Referral ID Status Reason Start Date Expiration Date V isits Requested Visits Authorized [id number] Closed Auto-Generate d Referral 08/26/2022 09/25/2023 1 1 [facility] for referral (narrative)* Diagnostic Procedure Only (Routine) - Closed Specialty Diagnoses / Procedures [facility] Referred To Contact XR IMAGING Diagnoses Skin ulcer of right heel with fat layer 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) Procedures XR FOOT GENERAL 3V AP/LAT/OBL RIGHT RADEX FOOT COMPLETE MINIMUM 3 VIEWS Juan Carlos [address] [place] [address] [place] [address] Referral ID Status Reason Start Date Expiration Date V isits Requested Visits Authorized [id number] Closed Auto-Generate d Referral 05/27/2022 06/26/2023 1 1 [facility] for referral (narrative)* Diagnostic Procedure Only (Routine) - Closed Specialty Diagnoses / Procedures [facility] Referred To Contact XR IMAGING Diagnoses 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 Diagnoses Peripheral arterial disease (HCC) Procedures PVR ANK/JUARES/TOE MARTITA VAS LAB NON-INVAS PHYSIOLOGIC STD EXTREMITY ART 2 LEVEL Tyrell Vigil DO [address] [place] [address] [place] [address] Referral ID Status Reason Start Date Expiration Date Visits Requested Visits Authorized [id number] Authorized Auto-Generat ed Referral 08/18/2023 08/17/2024 1 1 * Outpatient Procedure (Routine) - Authorized Specialty Diagnoses / Procedures Referred By Contac t Referred To Contact [facility] Diagnoses Peripheral arterial disease (HCC) Abdominal aortic ectasia (HCC) Procedures US ABD AORTA COMPLETE VAS LAB DUP-SCAN AORTA IVC ILIAC VASCL/BPGS COMPLETE Tyrell Vigil DO [address] [place] [address] [place] [address] Referral ID Status Reason Start Date Expiration Date Visits Requested Visits Authorized [id number] Authorized Auto-Generat ed Referral 08/18/2023 08/17/2024 1 1 [facility] for referral (narrative)* Diagnostic Procedure Only (Routine) - Closed Specialty Diagnoses / Procedures Referred By Contac t Referred To Contact XR IMAGING Diagnoses Skin ulcer, limited to breakdown of skin (HCC) Procedures XR ANKLE GENERAL 3V AP/LAT/OBL LEFT RADEX ANKLE COMPLETE MINIMUM 3 VIEWS Juan Carlos Viveros [address] [place] [address] Xr Imaging [place] [address] Referral ID Status Reason Start Date Expiration Date V isits Requested Visits Authorized [id number] Closed Auto-Generate d Referral 11/23/2023 12/22/2024 1 1 [facility] for referral (narrative)* Outpatient Procedure (Routine) - New Request Specialty Diagnoses / Procedures Referred By Contac t Referred To Contact [facility] Diagnoses 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) Chronic hypoxemic respiratory failure (HCC) Procedures OXIMETRY WITH AMBULATION NONINVASIVE EAR/PULSE OXIMETRY Rosalie Fisher PA-C [address] [place] [address] [facility] [place] [address] [place] [address] Referral ID Status Reason Start Date Expiration Date Visits Requested Visits Authorized [id number] New Request Auto-Generat ed Referral 12/02/2023 12/31/2024 1 1 [facility] for referral (narrative)* Outpatient Procedure (Routine) - Authorized Specialty Diagnoses / Procedures Referred By Contac t Referred To Contact [facility] Diagnoses Skin ulcer, limited to breakdown of skin (HCC) Peripheral arterial disease (HCC) Venous insufficiency Procedures US VENOUS INCOMPETENCY MARTITA VAS LAB DUP-SCAN XTR VEINS COMPLETE BILATERAL STUDY Juan Carlos Viveros [address] [place] [address] [facility] [address] [address] Referral ID Status Reason Start Date Expiration Date Visits Requested Visits Authorized [id number] Authorized Auto-Generat ed Referral 01/05/2024 01/04/2025 1 1 * Diagnostic Procedure Only (Routine) - Closed Specialty Diagnoses / Procedures Referred By Contac t Referred To Contact XR IMAGING Diagnoses Skin ulcer, limited to breakdown of skin (HCC) Peripheral arterial disease (HCC) Venous insufficiency Procedures XR ANKLE GENERAL 3V AP/LAT/OBL LEFT RADEX ANKLE COMPLETE MINIMUM 3 VIEWS Juan Carlos Viveros [address] [place] [address] Xr Imaging [facility] Referral ID Status Reason Start Date Expiration Date V isits Requested Visits Authorized [id number] Closed Auto-Generate d Referral 01/05/2024 02/03/2025 1 1 [facility] for referral (narrative)* Outpatient Procedure (Routine) - Authorized Specialty Diagnoses / Procedures Referred By Contac t Referred To Contact [facility] Diagnoses Peripheral arterial disease (HCC) Procedures PVR ANK/JUARES/TOE MARTITA VAS LAB NON-INVAS PHYSIOLOGIC STD EXTREMITY ART 2 LEVEL Betito Mauro MD [facility], [place] [address] [place] [address] Referral ID Status Reason Start Date Expiration Date Visits Requested Visits Authorized [id number] Authorized Auto-Generat ed Referral 03/07/2024 02/04/2025 1 1 [facility] for referral (narrative)No reason for referral information [facility] Work Phone: [facility] Narrative* Diagnostic Procedure Only (Routine) - Closed Specialty Diagnoses / Procedures [facility] Referred To Contact [facility] Diagnoses Encounter for preprocedural cardiovascular examination Procedures NM CARDIAC PERF STRESS/PHARM MYOCARDIAL SPECT MULTIPLE STUDIES Tyrell Vigil, DO [address] [place] [address] [facility] [address] [place] [address] Referral ID Status Reason Start Date Expiration Date V isits Requested Visits Authorized [id number] Closed Auto-Generate d Referral 04/15/2022 05/15/2023 1 1 [facility] for visit Narrative* Outpatient Procedure (Routine) - Closed Specialty Diagnoses / Procedures Referred By Contac t Referred To Contact [facility] Diagnoses Encounter for preprocedural cardiovascular examination Procedures ECHO ECHO TTHRC R-T 2D W/WOM-MODE COMPL SPEC&COLR D Tyrell Vigil, DO [address] [place] [address] [facility] [place] [address] [place] [address] Referral ID Status Reason Start Date Expiration Date V isits Requested Visits Authorized [id number] Closed Auto-Generate d Referral 04/15/2022 04/15/2023 1 1 [facility] for visit Narrative* Diagnostic Procedure Only (Routine) - Closed Specialty Diagnoses / Procedures Referred By Contac t Referred To Contact XR IMAGING Diagnoses Pressure injury of right heel, unstageable (HCC) Procedures XR FOOT GENERAL 3V AP/LAT/OBL RIGHT RADEX FOOT COMPLETE MINIMUM 3 VIEWS TestJuan Carlos galan [address] [place] [address] [place] [address] Referral ID Status Reason Start Date Expiration Date V isits Requested Visits Authorized [id number] Closed Auto-Generate d Referral 01/28/2022 02/27/2023 1 1 [facility] for visit Narrative* Diagnostic Procedure Only (Routine) - Closed Specialty Diagnoses / Procedures Referred By Contac t Referred To Contact XR IMAGING Diagnoses Peripheral arterial disease (HCC) 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, with fat layer 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) Procedures XR FOOT GENERAL 3V AP/LAT/OBL RIGHT RADEX FOOT COMPLETE MINIMUM 3 VIEWS Testrake, Juan Carlos [address] [place] [address] [place] [address] Referral ID Status Reason Start Date Expiration Date V isits Requested Visits Authorized [id number] Closed Auto-Generate d Referral 02/18/2022 03/20/2023 1 1 [facility] for visit Narrative* Diagnostic Procedure Only (Routine) - Closed Specialty Diagnoses / Procedures Referred By Contac t Referred To Contact XR IMAGING Diagnoses Skin ulcer of right heel with fat layer 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) Peripheral arterial disease (HCC) Procedures XR FOOT GENERAL 3V AP/LAT/OBL RIGHT RADEX FOOT COMPLETE MINIMUM 3 VIEWS Testrake, Juan Carlos [address] [place] [address] [place] [address] Referral ID Status Reason Start Date Expiration Date V isits Requested Visits Authorized [id number] Closed Auto-Generate d Referral 08/26/2022 09/25/2023 1 1 [facility] for visit Narrative* Diagnostic Procedure Only (Routine) - Closed Specialty Diagnoses / Procedures Referred By Contac t Referred To Contact XR IMAGING Diagnoses Skin ulcer of right heel with fat layer 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) Procedures XR FOOT GENERAL 3V AP/LAT/OBL RIGHT RADEX FOOT COMPLETE MINIMUM 3 VIEWS TestJuan Carlos galan [address] [place] [address] [place] [address] Referral ID Status Reason Start Date Expiration Date V isits Requested Visits Authorized [id number] Closed Auto-Generate d Referral 05/27/2022 06/26/2023 1 1 [facility] for visit Narrative* Diagnostic Procedure Only (Routine) - Closed Specialty Diagnoses / Procedures Referred By Contac t Referred To Contact XR IMAGING Diagnoses 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, with fat layer 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) Procedures XR FOOT GENERAL 3V AP/LAT/OBL RIGHT RADEX FOOT COMPLETE MINIMUM 3 VIEWS TestJuan Carlos galan [address] [place] [address] [place] [address] Referral ID Status Reason Start Date Expiration Date V isits Requested Visits Authorized [id number] Closed Auto-Generate d Referral 03/19/2022 04/18/2023 1 1 [facility] for visit Narrative* Diagnostic Procedure Only (Routine) - Closed Specialty Diagnoses / Procedures Referred By Contac t Referred To Contact XR IMAGING Diagnoses Skin ulcer, limited to breakdown of skin (HCC) Procedures XR ANKLE GENERAL 3V AP/LAT/OBL LEFT RADEX ANKLE COMPLETE MINIMUM 3 VIEWS TestraJuan Carlos patino [address] [place] [address] [place] [address] Referral ID Status Reason Start Date Expiration Date V isits Requested Visits Authorized [id number] Closed Auto-Generate d Referral 11/23/2023 12/22/2024 1 1 [facility] for visit Narrative* Diagnostic Procedure Only (Routine) - Closed Specialty Diagnoses / Procedures Referred By Contac t Referred To Contact XR IMAGING Diagnoses Skin ulcer, limited to breakdown of skin (HCC) Peripheral arterial disease (HCC) Venous insufficiency Procedures XR ANKLE GENERAL 3V AP/LAT/OBL LEFT RADEX ANKLE COMPLETE MINIMUM 3 VIEWS Juan Carlos Viveros [address] [place] [address] [place] [address] Referral ID Status Reason Start Date Expiration Date V isits Requested Visits Authorized [id number] Closed Auto-Generate d Referral 01/05/2024 02/03/2025 1 1 [facility] for visit Narrative* MRI/CT (Routine) - Closed Specialty Diagnoses / Procedures Referred By Abby t Referred To Contact CT IMAGING Diagnoses Squamous carcinoma of lung, left (HCC) Procedures CT CHEST W IVCON DIAGNOSTIC COMPUTED TOMOGRAPHY THORAX W/CONTRAST Salazar Meraz DO [address] [place] [address] Phone: tel: fax: [place] [address] Referral ID Status Reason Start Date Expiration Date V isits Requested Visits Authorized [id number] Closed Auto-Generate d Referral 03/21/2024 04/20/2025 1 1 [facility] Summary Purpose Family History No Family History Records Found Relationship Condition Age at Onset Recorded Date/T miguel Not Specified No pertinent family history Unknown Relationship Condition Age at Onset Recorded Date/T miguel mother Malignant neoplasm Unknown father Cardiac disease Unknown Chronic obstructive pulmonary disease [place] nown Advance Directives No Advanced Directives Records FoundLatest Code Status on File Code Status Date Activated Date Inactivated Comments Full Code 02/20/2020 2:38 PM Full Code 02/20/2020 10:21 AM 02/20/2020 2:38 PM Latest Code Status on File Code Status Date Activated Date Inactivated Comments Full Code 04/06/2020 4:37 AM Full Code 02/20/2020 2:38 PM 03/03/2020 6:49 PM Documents on File Type Date Recorded 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 Advance Directive(s) 04/06/2009 12:00 AM Advance Directive(s) 04/17/2006 12:00 AM Documents on File Type Date Recorded 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 Advance Directive(s) 04/06/2009 12:00 AM Advance Directive(s) 04/17/2006 12:00 AM Advance Directive Response Recorded Date/ Time Advance Directives No January 03, 2015 11:33am Living Will Yes August 13, 2020 8:35am Power of Casino Surveillance Officer Yes August 13 8:35am Documents on File Type Date Recorded 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 Advance Directive(s) 04/06/2009 Advance Directive(s) 04/17/2006 Documents on File Type Date Recorded 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 Advance Directive(s) 04/06/2009 Advance Directive(s) 04/17/2006 Advance Directive Response Recorded Date/ Time Name of Medical Power of Casino Surveillance Officer December 15, 2021 12:09pm Advance Directives No January 03, 2015 11:33am Living Will Yes December 15 12:09pm Power of Casino Surveillance Officer Yes December 15, 2021 12:09pm Advance Directive Response Recorded Date/ Time Name of Medical Power of Casino Surveillance Officer December 15, 2021 11:09am Advance Directives No January 03, 2015 10:33am Living Will No January 25, 2 022 2:33pm Power of Casino Surveillance Officer No January 25, 2022 2:33pm Advance Directive Response Recorded Date/ Time Advance Directives No January 03, 2015 10:33am Living Will No January 25, 2 022 2:33pm Power of Casino Surveillance Officer No January 25, 2022 2:33pm Advance Directive Response Recorded Date/ Time Advance Directives No January 03, 2015 11:33am Living Will No November 24, 2022 1:55pm Power of Casino Surveillance Officer No October 1:55pm Advance Directive Response Recorded Date/ Time Advance Directives No January 03, 2015 10:33am Living Will No November 24, 2022 12:55pm Power of Casino Surveillance Officer No October 12:55pm Advance Directive Response Recorded Date/ Time Advance Directives No January 03, 2015 10:33am Living Will No March 25 12:54pm Power of Casino Surveillance Officer No March 25, 2023 12:54pm Advance Directive Response Recorded Date/ Time Advance Directives No January 03, 2015 10:33am Living Will No March 25 4:56pm Power of Casino Surveillance Officer No March 25, 2023 4:56pm Advance Directive Response Recorded Date/ Time Name of Medical Power of Casino Surveillance Officer christina/ May 28, 2023 1:04pm Advance Directives No January 03, 2015 11:33am Living Will Yes May 28, 2023 1:04pm Power of Casino Surveillance Officer Yes May 27 1:04pm Documents on File Type Date Recorded 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 Yes October 20, 2023 3:47pm Living Will Yes February 18 8:45pm Do you have a Healthcare Power of Casino Surveillance Officer? Yes February 19, 2024 8:45pm Name of Medical Power of Casino Surveillance Officer Serenity Barney February 19, 2024 8:45pm Living Will Yes May 22, 2024 12:13pm Do you have a Healthcare Power of Casino Surveillance Officer? Yes May 22, 2024 12:13pm Name of Medical Power of Casino Surveillance Officer Serenity Barney May 22, 2024 12:13pm Advance Directives No January 03, 2015 11:33am Advance Directive Response Recorded Date/ Time Living Will Yes October 19 3:47pm Do you have a Healthcare Power of Casino Surveillance Officer? Yes October 20, 2023 3:47pm Living Will Yes February 18 8:45pm Do you have a Healthcare Power of Casino Surveillance Officer? Yes February 19, 2024 8:45pm Name of Medical Power of Casino Surveillance Officer Serenity Barney February 19, 2024 8:45pm Living Will Yes May 22, 2024 4:20pm Do you have a Healthcare Power of Casino Surveillance Officer? Yes May 22, 2024 4:20pm Name of Medical Power of Casino Surveillance Officer Serenity Barney May 22, 2024 4:20pm Advance Directives No January 03, 2015 11:33am Advance Directive Response Recorded Date/ Time Living Will Yes October 19 3:47pm Do you have a Healthcare Pow er of Casino Surveillance Officer? Yes October 20, 2023 3:47pm Living Will Yes February 18 8:45pm Do you have a Healthcare Pow er of Casino Surveillance Officer? Yes February 19, 2024 8:45pm Name of Medical Power of Casino Surveillance Officer Serenity Corley February 19, 2024 8:45pm Living Will Yes May 22, 2024 4:20pm Do you have a Healthcare Pow er of Casino Surveillance Officer? Yes May 22, 2024 4:20pm Name of Medical Power of Casino Surveillance Officer Serenity Corley May 22, 2024 4:20pm Living Will Yes June 03, 2024 3:07pm Do you have a Healthcare Pow er of Casino Surveillance Officer? Yes June 03, 2024 3:07pm Name of Medical Power of Casino Surveillance Officer christina corley, June 03, 2024 3:07pm Advance Directives No January 03, 2015 11:33am Advance Directive Response Recorded Date/ Time Living Will Yes October 19 3:47pm Do you have a Healthcare Pow er of Casino Surveillance Officer? Yes October 20, 2023 3:47pm Living Will Yes February 18 8:45pm Do you have a Healthcare Pow er of Casino Surveillance Officer? Yes February 19, 2024 8:45pm Name of Medical Power of Casino Surveillance Officer Serenity Corley February 19, 2024 8:45pm Living Will Yes May 22, 2024 4:20pm Do you have a Healthcare Pow er of Casino Surveillance Officer? Yes May 22, 2024 4:20pm Name of Medical Power of Casino Surveillance Officer Serenity Corley May 22, 2024 4:20pm Living Will Yes June 03, 2024 7:15pm Do you have a Healthcare Pow er of Casino Surveillance Officer? Yes June 03, 2024 7:15pm Name of Medical Power of Casino Surveillance Officer Christina Corley, June 03, 2024 7:15pm Advance Directives No January 03, 2015 11:33am Advance Directive Response Recorded Date/ Time Living Will Yes February 18 024 8:45pm Do you have a Healthcare Pow er of Casino Surveillance Officer? Yes February 19, 2024 8:45pm Name of Medical Power of Casino Surveillance Officer Serenity Corley February 19, 2024 8:45pm Living Will Yes May 22, 2024 4:20pm Do you have a Healthcare Pow er of Casino Surveillance Officer? Yes May 22, 2024 4:20pm Name of Medical Power of Casino Surveillance Officer Serenity Corley May 22, 2024 4:20pm Living Will Yes June 03, 2024 7:15pm Do you have a Healthcare Pow er of Casino Surveillance Officer? 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 Yes May 22, 2024 4:20pm Name of Medical Power of Casino Surveillance Officer Serenity Corley May 22, 2024 4:20pm Living Will Yes June 03, 2024 7:15pm Do you have a Healthcare Pow er of Casino Surveillance Officer? Yes June 03, 2024 7:15pm Name of Medical Power of Casino Surveillance Officer Christina Corley, June 03, 2024 7:15pm Advance Directives No January 03, 2015 11:33am Reason for Referral Status Reason Specialty Diagnoses / Procedures Referre d By Contact Referred To Contact Open Radiology Diagnoses Nodule of left lung Procedures PET CT SKULL BASE TO MID THIGH Oliverio Herrmann MD [address] [place] [address], [address] [place] [address] Specialty Diagnoses / Procedures Referred By Contac t Referred To Contact CT IMAGING Diagnoses Malignant neoplasm of unspecified part of unspecified bronchus or lung (HCC) Procedures CT CHEST W IVCON DIAGNOSTIC COMPUTED TOMOGRAPHY THORAX W/CONTRAST Salazar Meraz DO [address] [place] [address] Ct Imaging Referral ID Status Reason Start Date Expiration Date V isits Requested Visits Authorized [id number] Closed Auto-Generate d Referral 04/26/2021 05/26/2022 1 1 Referral ID Status Reason Start Date Expiration Date Visits Requested Visits Authorized [id number] Authorized Auto-Generat ed Referral 07/19/2021 08/18/2022 1 1 Specialty Diagnoses / Procedures Referred By Contac t Referred To Contact CT IMAGING Diagnoses Malignant neoplasm of unspecified part of unspecified bronchus or lung (HCC) Procedures CT CHEST W IVCON DIAGNOSTIC COMPUTED TOMOGRAPHY THORAX W/CONTRAST Salazar Meraz, DO [address] [place] [address] Ct Imaging Referral ID Status Reason Start Date Expiration Date V isits Requested Visits Authorized [id number] Closed Auto-Generate d Referral 07/19/2021 08/18/2022 1 1 Referral ID Status Reason Start Date Expiration Date Visits Requested Visits Authorized [id number] Authorized Auto-Generat ed Referral 11/19/2021 12/19/2022 1 1 Specialty Diagnoses / Procedures Referred By Contac t Referred To Contact CT IMAGING Diagnoses Malignant neoplasm of unspecified part of unspecified bronchus or lung (HCC) Procedures CT ABD/PEL W IVCON CT ABD & PELVIS W/CONTRAST Salazar Meraz, DO [address] [place] [address] Ct Imaging Referral ID Status Reason Start Date Expiration Date Visits Requested Visits Authorized [id number] Authorized Auto-Generat ed Referral 11/19/2021 12/19/2022 1 1 Specialty Diagnoses / Procedures Referred By Contac t Referred To Contact Podiatry Diagnoses Pressure injury of right heel, unstageable (HCC) Peripheral arterial disease (HCC) Fissure in skin of foot Procedures CONSULT TO PODIATRY OFFICE/OUTPATIENT NEW HIGH MDM 60-74 MINUTES Tyrell Vigil, DO [address] [place] [address] Referral ID Status Reason Start Date Expiration Date Visits Requested Visits Authorized [id number] Authorized PCP Requested Referral 2 01/21/2023 1 1 Specialty Diagnoses / Procedures Referred By Contac t Referred To Contact CT IMAGING Diagnoses Diminished pulses in lower extremity Procedures CTA ABD/PEL LOWER EXTREM W IVCON CTA ABDL AORTA&BI ILIOFEM W/CONTRAST&POSTP Tyrell Vigil, DO [address] [place] [address] Ct Imaging Referral ID Status Reason Start Date Expiration Date Visits Requested Visits Authorized [id number] Authorized Auto-Generat ed Referral 02/20/2023 1 1 Specialty Diagnoses / Procedures Referred By Contac t Referred To Contact CT IMAGING Diagnoses Malignant neoplasm of unspecified part of unspecified bronchus or lung (HCC) Procedures CT CHEST W IVCON DIAGNOSTIC COMPUTED TOMOGRAPHY THORAX W/CONTRAST Masci Salazar A, DO [address] [place] [address] [place] [address] Referral ID Status Reason Start Date Expiration Date V isits Requested Visits Authorized [id number] Closed Auto-Generate d Referral 11/19/2021 12/19/2022 1 1 Specialty Diagnoses / Procedures Referred By Contac t Referred To Contact CT IMAGING Diagnoses Malignant neoplasm of unspecified part of unspecified bronchus or lung (HCC) Procedures CT ABD/PEL W IVCON CT ABD & PELVIS W/CONTRAST Masci Salazar A, DO [address] [place] [address] [place] [address] Referral ID Status Reason Start Date Expiration Date V isits Requested Visits Authorized [id number] Closed Auto-Generate d Referral 11/19/2021 12/19/2022 1 1 Specialty Diagnoses / Procedures Referred By Contac t Referred To Contact CT IMAGING Diagnoses Squamous carcinoma of lung, left (HCC) Procedures CT CHEST W IVCON DIAGNOSTIC COMPUTED TOMOGRAPHY THORAX W/CONTRAST Lizzy Salazar A, DO [address] [place] [address] [place] [address] Referral ID Status Reason Start Date Expiration Date Visits Requested Visits Authorized [id number] Pending Review Auto-Generat ed Referral 05/18/2023 06/16/2024 1 1 Referral ID Status Reason Start Date Expiration Date Visits Requested Visits Authorized [id number] Authorized Auto-Generat ed Referral 06/19/2023 07/18/2024 1 1 Specialty Diagnoses / Procedures Referred By Contac t Referred To Contact CT IMAGING Diagnoses Squamous carcinoma of lung, left (HCC) Lung nodules Procedures CT CHEST W IVCON DIAGNOSTIC COMPUTED TOMOGRAPHY THORAX W/CONTRAST Maschawa Salazar A, DO [address] [place] [address] Ct Imaging [place] [address] Referral ID Status Reason Start Date Expiration Date Visits Requested Visits Authorized [id number] Authorized Auto-Generat ed Referral 08/24/2023 09/22/2024 1 1 Referral ID Status Reason Start Date Expiration Date Visits Requested Visits Authorized [id number] Authorized Auto-Generat ed Referral 11/22/2023 12/21/2024 1 1 Specialty Diagnoses / Procedures Referred By Contac t Referred To Contact CT IMAGING Diagnoses Pneumonia of left lung due to infectious organism, unspecified part of lung Procedures CT CHEST WO IVCON DIAGNOSTIC COMPUTED TOMOGRAPHY THORAX W/O CNTRST Kailash Cordova, VANNA.LEGAL STENOGRAPHER [address] [facility] [address] [place] [id number] [facility] [place] [address] Referral ID Status Reason Start Date Expiration Date Visits Requested Visits Authorized [id number] Authorized Auto-Generat ed Referral 01/06/2025 1 1 Specialty Diagnoses / Procedures Referred By Contac t Referred To Contact CT IMAGING Diagnoses Peripheral vascular disease (HCC) Procedures CTA ABD/PEL LOWER EXTREM W IVCON CTA ABDL AORTA&BI ILIOFEM W/CONTRAST&POSTP Tyrell Vigil, DO [address] [place] [id number] Imaging [place] [address] Referral ID Status Reason Start Date Expiration Date Visits Requested Visits Authorized [id number] New Request Auto-Generat ed Referral 01/05/2024 02/03/2025 1 1 Referral ID Status Reason Start Date Expiration Date Visits Requested Visits Authorized [id number] Authorized Auto-Generat ed Referral 03/21/2024 04/20/2025 1 1 Specialty Diagnoses / Procedures Referred By Contac t Referred To Contact Diagnoses COPD, frequent exacerbations (HCC) Rosalie Martinez PA-C [address] [place] [address] Referral ID Status Reason Start Date Expiration Date V isits Requested Visits Authorized [id number] Pending Review 1 1 Assessments Diagnosis Nodule of left lung Solitary pulmonary nodule Diagnosis Pulmonary nodule Solitary pulmonary nodule Diagnosis Lung nodule- Primary Solitary pulmonary nodule Urinary retention Retention of urine, unspecified Diagnosis Other pneumothorax- Primary Dyspnea on exertion Other dyspnea and respiratory abnormality Shortness of breath Discharge Instructions * Instructions* Tracy Jones RN - 02/16/2020 Continue Aspirin. Plavix held since 02/02/20. TAKE the following medications the morning of your surgery-Dulera, Spiriva, Metoprolol.You may takeAlbuterol, Lorazepam if needed. You may take Tylenol (Acetaminophen) if needed for pain. You will receive a reminder call the day before surgery with your Same Day Surgery arrival time. If you have specific questions, please call your surgeon. No Motrin, Ibuprofen, or Advil 24 hours prior to surgery, or longer if instructed by your surgeon. No Aleve or Naprosyn 3 days prior to surgery, or longer if instructed by your surgeon. Please mei the last dose taken (date and time ) on your Daily Medications List provided in your After Visit Summary. Please bring a photo ID and insurance information to 1st floor surgery. Please bring your [facility]izor Surgical Information folder on the day of surgery. * Attachments The following attachments cannot be sent through Care Everywhere. * Pulmonary Nodules: General Info ([facility]) * Thoracotomy: Pre-op ([facility]) * Thoracotomy: Post-op ([facility]) * VATS (Video-Assisted Thoracoscopic Surgery): Pre-op ([facility]) * VATS (Video-Assisted Thoracoscopic Surgery): Post-op ([facility]) documented in this encounter* Discharge Instr - Lab* Jocelin Parsons LPN - 03/01/2020 2:17 PM EST If you change your mind and decide you would like home care Please call [facility] [phone] SCHEDULING [phone] * Additional Instructions* Daniela Walls MD - 03/01/2020 Use your miniature drain as instructed. Use the syringe to drain fluid when the canister gets full. * Attachments The following attachments cannot be sent through Care Everywhere. * Chest Tube Care ([facility]) documented in this encounter* Discharge Instr - Activity* Caesar Rutherford MD - 04/07/2020 12:57 PM EST As tolerated * Discharge Instr - Diet* Caesar Rutherford MD - 04/07/2020 12:57 PM EST Good nutrition is important when healing from an illness, injury, or surgery. Follow any nutrition recommendations given to you during your hospital stay. If you were given an oral nutrition supplement while in the hospital, continue to take this supplement at home. You can take it with meals, in-between meals, and/or before bedtime. These supplements can be purchased at most local grocery stores, pharmacies, and chain super-stores. If you have any questions about your diet or nutrition, call the hospital and ask for the dietitian. Low salt diet * Discharge Instr - Lab* Soraya Lam RN - 04/06/2020 5:05 PM EST Your physician has ordered skilled home care services for you. Your home care will be provided by: [facility] [phone] documented in this encounter History of Present Illness * Tracy Jones RN - 02/16/2020 12:30 PM EST Labs obtained on 1st attempt with 23 gauge butterfly needle at right AC site. Patient tolerated well, site benign. Covid and MRSA swabs obtained. Pt tolerated fair, site benign. documented in this encounter* Marsha Milton RN - 03/03/2020 4:36 PM EST Went over discharge instructions, med rec, and prescriptions with pt. Pt verbalized understanding. NA took pt down for discharge in wheelchair * Darleen Ley PTA - 03/03/2020 1:04 PM EST Physical Therapy Refuse any OOB or PT at this time. Encouraged OOB and he states he just lay down and refuse activity at this time. * Juan Carlos Dunn, IMPROVEMENT COORDINATOR - LEGAL STENOGRAPHER - 03/03/2020 7:21 AM EST Cardiothoracic Surgery Progress Note PATIENT NAME: Oswaldo Corley TODAY'S DATE: 03/03/2020 SUBJECTIVE: VSS overnight - no chest tube output recorded pneumostat - labs stable - hope ful DC home today with home O2 PRN - Weaned off O2 overnight OBJECTIVE: VITALS: BP 120/67 Pulse 79 Temp 97.9 F (36.6 C) (Temporal) Resp 17 Ht 6' (1.829 m) Wt 195lb (88.5 kg) SpO2 94% BMI 26.45 kg/m BMI Classification: Overweight (BMI 25.0-29.9) INTAKE/OUTPUT: I/O last 3 completed shifts: In: 400 [P.O.:400] Out: 125 [Urine:125] No intake/output data recorded. CONSTITUTIONAL: NAD, awake and alert. RESPIRATORY: Nonlabored normal respiratory effort, no stridor, equal and bilateral chest rise. NC. Single chest tube connect to pneumostat, minimal serous output. CV: regular rate and rhythm ABDOMEN: Soft, non-distended, non-tender. Indwelling suazo catheter in place EXTREMITIES: No edema or cyanosis WOUND: Left thoracotomy incision c/d/i Data: CBC: Recent Labs 03/01/2031603/02/20 04103/03/20 0001 WBC 6.4 7.1 7.2 HGB 10.8* 10.6* 10.9* HCT 33.1* 32.9* 33.4* PLT 295 316 355 BMP: Recent Labs 03/01/2031603/02/20 04103/03/20 0001 NA 133* 134* 133* K 3.6 4.1 3.7 CL 100 101 100 CO2 30 29 27 BUN 15 13 14 CREATININE 0.71 0.67 0.73 GLUCOSE 104* 104* 115* Hepatic: No results for input(s): AST, ALT, ALB, BILITOT, ALKPHOS in the last 72 hours. CXR 03/02 IMPRESSION: 1. Lines/ tubes/ devices: Sternotomy wires. Left basilar chest tube is directed toward the left lung apex. 2. Lungs and Pleura: Left lower lobe parenchymal density with linear component, likely segmental atelectasis is redemonstrated. Small left basilar pneumothorax, unchanged. No pleural effusion. 3. Heart and mediastinum: Normal cardiomediastinal margin. 4. Bones: Thoracic degenerative spondylosis. ASSESSMENT AND PLAN: Oswaldo Corley is a 79 y.o. male with left lower lobe lung nodule s/p left VATS converted to leftopen thoracotomy, wedge resection of left lower lobe 02/19 -Continue left chest tubes to suction, increase suction from 20->25 cm H20. Monitor output. S/p instillation of talc slurry through chest tube 02/24. + air leak still present, slightly improved after talc slurry. 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 All drainage coming from insertion site. Notified , he will come take a look. * Marsha Milton RN - 03/02/2020 3:00 PM EST Drainage noted seeping through reinforced dressing. Notified . Ordered to change dressing PRN * Neil Puckett PUBLISHING AGENT - 03/02/2020 2:39 PM EST [facility] Respiratory Care Department Progress Note SpO2 at rest on RA = 91% SpO2 with ambulation on RA = 93% Distance Walked = 100ft Qualify for home O2 Y/N = No Patient mobile at home Y/N = Yes * Rocio Carroll, OT - 03/02/2020 11:14 AM EST Occupational Therapy Occupational Therapy Initial Assessment Date: 03/02/2020 Patient Name: Oswaldo Corley : 1940 Date of Service: 03/02/2020 Discharge Recommendations: Home with assist PRN, Home with Home health OT Assessment Performance deficits / Impairments: Decreased endurance;Decreased functional mobility ;Decreased ADL status;Decreased high-level IADLs;Decreased safe awareness;Decreased strength Assessment: OT eval complete. Pt baseline independent with ADLs, IADLs, and is retired. Pt requiring adaptations to complete self-care routine d/t poor endurance. Overall func mobility WFL, pt limited by endurance primarily. Safe to return home, however consider home OT for functional endurance throughout daily activities, annamarie in regards to self-care tasks Prognosis: Good Decision Making: Medium Complexity OT Education: OT Role;Plan of Care;IADL Safety;Energy Conservation;ADL Adaptive Strategies Patient Education: Pt indicated understanding through teachback REQUIRES OT FOLLOW UP: Yes Activity Tolerance Activity Tolerance: Patient limited by fatigue Safety Devices Safety Devices in place: Yes Type of devices: Left in chair;Nurse notified;Call light within reach;Chair alarm in place;Gait belt Patient Diagnosis(es): The encounter diagnosis was Lung nodule. has a past medical history of Aneurysm of aorta (HCC), Bronchiectasis (HCC), CAD (coronary artery disease), Chronic hypoxemic respiratory failure (HCC), COPD (chronic obstructive pulmonary disease) (HCC), HLD (hyperlipidemia), HTN (hypertension), Influenza B, Nocturnal hypoxia, On home O2, and Prostate CA (HCC). has a past surgical history that includes Coronary artery bypass graft (1999); Coronary angioplastywith stent (2012); TURP; Lung biopsy (Left, 2019); and thoracotomy (Left, 02/20/2020). Restrictions Restrictions/Precautions Restrictions/Precautions: Fall Risk, General Precautions Required Braces or Orthoses?: No Position Activity Restriction Other position/activity restrictions: 2 CT's to continuous suction, Pt on 4L O2 via NC No IS, no coughing Subjective General Chart Reviewed: Yes Patient assessed for rehabilitation services?: Yes Family / Caregiver Present: No Subjective Subjective: Pt in bed upon OT arrival, willing to participate. Patient Currently in Pain: Yes Pain Assessment Pain Assessment: 0-10 Pain Level: 3 Patient's Stated Pain Goal: 3 Pain Type: Surgical pain Pain Location: Chest Pain Orientation: Left Pain Descriptors: Discomfort Non-Pharmaceutical Pain Intervention(s): Rest;Repositioned;Ambulation/Increased Activity Response to Pain Intervention: Patient Satisfied Pre Treatment Pain Screening Intervention List: Patient able to continue with treatment Social/Functional History Social/Functional History Lives With: Spouse Type of Home: House Home Layout: One level(laundry on main level) Bathroom Shower/Tub: Tub/Shower unit Bathroom Toilet: Standard Bathroom Equipment: Shower chair Bathroom Accessibility: Accessible ADL Assistance: Independent Homemaking Assistance: Independent Homemaking Responsibilities: Yes Ambulation Assistance: Independent Transfer Assistance: Independent Active Clinical Pharmacist: Yes Mode of Transportation: Car Occupation: Retired Leisure & Hobbies: boating, fishing, car racing IADL Comments: shares responsibilities with Objective Vision: Within Functional Limits Hearing: Within functional limits Orientation Overall Orientation Status: Within Functional Limits Observation/Palpation Posture: Fair Balance Sitting Balance: Independent Standing Balance: Supervision Standing Balance Time: 8 min Activity: self care routine at sink side - see ADL section Comment: SOB and poor endurance noted, finished routine seated x 7 min Functional Mobility Functional - Mobility Device: No device Activity: To/from bathroom Assist Level: Supervision ADL Grooming: Modified independent Toileting: Supervision Additional Comments: supervision for toilet transfer, able to complete perineal hygiene independently. Modified independent for self care tasks. 15 min self care routine at sink side (8 min standing,7 min sitting) to brush teeth, wash hair, brush hair, and wash face. Demo'd SOB and poor endurance at 8 min standing mei Bed mobility Supine to Sit: Supervision Comment: HOB elevated 45 deg Transfers Sit to stand: Stand by assistance Stand to sit: Stand by assistance Cognition Overall Cognitive Status: WFL Sensation Overall Sensation Status: WFL LUE AROM (degrees) LUE AROM : WFL RUE AROM (degrees) RUE AROM : WFL LUE Strength LUE Strength Comment: NT d/t recent procedure, functional strength observed throughout tasks Plan Plan Times per week: 3-5 Plan weeks: 2 Current Treatment Recommendations: Strengthening, Patient/Caregiver Education & Training, Home Management Training, Equipment Evaluation, Education, & procurement, Functional Mobility Training, Endurance Training, Self-Care / ADL, Safety Education & Training Goals and/or treatment plan was established in collaboration with patient/family/other representatives. Patient's Occupational Therapy Plan of Care supervision is transferred to [facility] Occupational Therapist. AM-PAC Score AM-PAC Inpatient Daily Activity Raw Score: 18 (03/02/20 1110) AM-PAC Inpatient ADL T-Scale Score : 38.66 (03/02/20 1110) ADL Inpatient CMS 0-100% Score: 46.65 (03/02/20 1110) ADL Inpatient CMS G-Code Modifier : CK (03/02/201109) Goals Short term goals Time Frame for Short term goals: 2 weeks Short term goal 1: pt will complete bed mobility independently Short term goal 2: pt will complete LB UB dressing independently Short term goal 3: pt will complete dynamic standing balance func activity x10 min w/ good endurance and safety Patient Goals Patient goals : return home today Therapy Time Individual Concurrent Group Co-treatment Time In 0935 Time Out 1016 Minutes 41 Timed Code Treatment Minutes: 25 Minutes(2 self care) Rocio Carroll OT * Marsha Milton RN - 03/02/2020 10:[address] dressing changed over night. This morning, serous drainage noted on dressing. made aware. Ordered to reinforce dressing * Daniela Walls MD - 03/02/2020 7:20 AM EST Cardiothoracic Surgery Progress Note PATIENT NAME: Oswaldo Corley TODAY'S DATE: 03/02/2020 SUBJECTIVE: Андрей drain removed. Remaining chest tube switched to pneumostat. Suazo removed per urology, PVR of172 and 206 recorded. Oxygen attempted to be weaned during the day, however dropped to 87%, so placed on NC. Pneumostat with 7 cc output Patient denies dyspnea. Pain controlled. OBJECTIVE: VITALS: BP 108/67 Pulse 82 Temp 97.3 F (36.3 C) (Temporal) Resp 18 Ht 6' (1.829 m) Wt 195lb (88.5 kg) SpO2 94% BMI 26.45 kg/m BMI Classification: Overweight (BMI 25.0-29.9) INTAKE/OUTPUT: I/O last 3 completed shifts: In: - Out: 357 [Urine:350; Chest Tube:7] No intake/output data recorded. CONSTITUTIONAL: NAD, awake and alert. RESPIRATORY: Nonlabored normal respiratory effort, no stridor, equal and bilateral chest rise. NC. Single chest tube connect to pneumostat, minimal serous output. CV: regular rate and rhythm ABDOMEN: Soft, non-distended, non-tender. Indwelling suazo catheter in place EXTREMITIES: No edema or cyanosis WOUND: Left thoracotomy incision c/d/i Data: CBC: Recent Labs 02/29/201603/01/207 03/02/20 0419 WBC 7.7 6.4 7.1 HGB 10.7* 10.8* 10.6* HCT 32.5* 33.1* 32.9* PLT 299 295 316 BMP: Recent Labs 02/29/207 03/01/207 03/02/20 0419 NA 134* 133* 134* K 3.9 3.6 4.1 CL 99 100 101 CO2 30 30 29 BUN 17 15 13 CREATININE 0.69 0.71 0.67 GLUCOSE 109* 104* 104* Hepatic: No results for input(s): AST, ALT, ALB, BILITOT, ALKPHOS in the last 72 hours. CXR 03/02 IMPRESSION: 1. Lines/ tubes/ devices: Sternotomy wires. Left basilar chest tube is directed toward the left lung apex. 2. Lungs and Pleura: Left lower lobe parenchymal density with linear component, likely segmental atelectasis is redemonstrated. Small left basilar pneumothorax, unchanged. No pleural effusion. 3. Heart and mediastinum: Normal cardiomediastinal margin. 4. Bones: Thoracic degenerative spondylosis. ASSESSMENT AND PLAN: Oswaldo Corley is a 79 y.o. male with left lower lobe lung nodule s/p left VATS converted to leftopen thoracotomy, wedge resection of left lower lobe 02/19 -Continue left chest tubes to suction, increase suction from 20->25 cm H20. Monitor output. S/p instillation of talc slurry through chest tube 02/24. + air leak still present, slightly improved after talc slurry. -Daily CXR -Avoid incentive spirometer, coughing in an effort to resolve air leak. 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 PVR of 206 overnight. Dicussed with urology, as long as the amount voided is > than the PVR, then he can be discharge. - Home oxygen eval. Patient previously only on 2LNC at night, but is now requiring minimal oxygen during the day. He has does not have any means for portable oxygen during the day currently. - Dispo: Home if no oxygen requirements during the day, and acceptable PVR per urology Daniela Walls MD General Surgery, PGY-3 03/02/2020 7:21 AM Associated attestation - Oliverio Herrmann MD - 03/02/2020 6:30 PM EST Patient remains constipated and has difficulty completing his urinary stream. Will hopefully achieve discharge readiness soon. I personally performed a face to face diagnostic evaluation on this patient. I agree with the findings and plan of care as documented by the resident/STRIP ROLLER/PSYCHOMETRIC EXAMINER/PA, unless otherwise noted. Oliverio Herrmann MD * Rani Yousif RN - 03/01/2020 10:24 PM EST Patient voided, states that he feels that bladder emptied well. Bladder scanned PVR for 206cc. * Marsha Santos RN - 03/01/2020 3:57 PM EST RN spoke with Dr. Humphries about pt voiding ~100ml and a pvr of 172. Will continue to monitor and do another PVR after next void * Mallory Andrews RD, JANINE - 03/01/2020 12:48 PM EST Comprehensive Nutrition Assessment Type and Reason for Visit: Reassess Nutrition Recommendations/Plan: 1. Continue liberal diet & encourage po intake. 2. Pt declining oral nutrition supplements. 3. Continue to record po intake in I/O flowsheet to monitor. 4. RD will follow weekly. Nutrition Assessment: Pt reports fair appetite, consuming 1/3 of meal trays per pt. Per nursing flowsheets 26-50% consumed x 1 meal 02/28. No N/V/abd pain, no chew/swallow difficulty. UBW 185#. States Ensure gave him diarrhea, but admitted it was given with stool softener. Pt uninterested in Magic Cup supplement as well stating he hopes to be d/c soon. 1 chest tube removed today. Labs & medica tions reviewed. Malnutrition Assessment: Malnutrition Status: At risk for malnutrition (Comment) Context: Acute Illness Nutrition Related Findings: abd distended, + flatus, +BS, Polo 19 Wounds: (CT x 2) Current Nutrition Therapies: DIET GENERAL; Anthropometric Measures: Height: 6' (182.9 cm) Current Body Weight: 174 lb (78.9 kg) Usual Body Weight: 185 lb (83.9 kg) [place] Body Weight: 178 lbs BMI: 23.6 Adjusted Body Weight: ; No Adjustment BMI Categories: Normal Weight (BMI 18.5-24.9) Nutrition Diagnosis: Increased nutrient needs related to increase demand for energy/nutrients as evidenced by wounds(surgical) Nutrition Interventions: Food and/or Nutrient Delivery: Continue Current Diet Nutrition Education/Counseling: No recommendation at this time Coordination of Nutrition Care: Continue to monitor while inpatient Goals: Pt to consume >/= 75% meals Nutrition Monitoring and Evaluation: Behavioral-Environmental Outcomes: None Identified Food/Nutrient Intake Outcomes: Food and Nutrient Intake Physical Signs/Symptoms Outcomes: Biochemical Data, GI Status, Weight, Skin Discharge Planning: Too soon to determine Contact: phone *[phone] * Laura Cardona PTA - 03/01/2020 11:23 AM EST Physical Therapy Attempted PT. Pt refused, states he isn't doing anything today because he just got one of the chesttubes out. Asked if he will need a walker incase he discharges today and he stated yes. Notified TCC. Will re-attempt at a later date if still admitted. Laura Cardona PTA * Daniela Walls MD - 03/01/2020 7:45 AM EST Cardiothoracic Surgery Progress Note PATIENT NAME: Oswaldo Corley TODAY'S DATE: 03/01/2020 SUBJECTIVE: Resting comfortably in bed this am. No fevers, chills. Tolerating diet. Pain controlled. Passing flatus. Suazo remains in place for urinary retention. L CT #1 output: 0 / [address] #2 output: 100 / 30 OBJECTIVE: VITALS: BP 121/70 Pulse 90 Temp 98.9 F (37.2 C) (Temporal) Resp 16 Ht 6' (1.829 m) Wt 195lb (88.5 kg) SpO2 93% BMI 26.45 kg/m BMI Classification: Overweight (BMI 25.0-29.9) INTAKE/OUTPUT: I/O last 3 completed shifts: In: 1650 [P.O.:1650] Out: 1230 [Urine:1100; Chest Tube:130] No intake/output data recorded. CONSTITUTIONAL: NAD, awake and alert. RESPIRATORY: Nonlabored normal respiratory effort, no stridor, equal and bilateral chest rise. On RA. L CT x2 in place. #1 with minimal serous fluid, no air leak. #2 with serous fluid, +1 air leak. CV: regular rate and rhythm ABDOMEN: Soft, non-distended, non-tender. Indwelling suazo catheter in place EXTREMITIES: No edema or cyanosis WOUND: Left thoracotomy incision c/d/i Data: CBC: Recent Labs 02/28/20 0120 02/29/20 0017 03/01/20 0317 WBC 7.4 7.7 6.4 HGB 10.6* 10.7* 10.8* HCT 32.4* 32.5* 33.1* PLT 267 299 295 BMP: Recent Labs 02/28/20 0120 02/29/20 0017 03/01/20 0317 NA 133* 134* 133* K 3.9 3.9 3.6 CL 98 99 100 CO2 29 30 30 BUN 15 17 15 CREATININE 0.66 0.69 0.71 GLUCOSE 104* 109* 104* Hepatic: No results for input(s): AST, ALT, ALB, BILITOT, ALKPHOS in the last 72 hours. CXR 03/01 Lungs/Pleura: Small residual left pneumothorax is noted. Atelectasis noted at the left lung base. There is no other consolidation. The right costophrenic angle is sharp but the left is obscured. IMPRESSION: Left chest tubes with small residual pneumothorax and atelectasis at the left lung base. ASSESSMENT AND PLAN: Oswaldo Corley is a 79 y.o. male with left lower lobe lung nodule s/p left VATS converted to leftopen thoracotomy, wedge resection of left lower lobe 02/19 -Continue left chest tubes to suction, increase suction from 20->25 cm H20. Monitor output. S/p instillation of talc slurry through chest tube 02/24. + air leak still present, slightly improved after talc slurry. -Daily CXR -Avoid incentive spirometer, coughing in an effort to resolve air leak. -Cardiac diet as tolerated -Indwelling suazo placed by urology, appreciate recs. Plan for void trial on day of discharge. ContFlomax. 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 Other chest tube will be connected to a pneumostat valve.Repeat CXR this afternoon. If no change, then plan of discharge today. - Urology notified, voiding trial ordered Daniela Walls MD General Surgery, PGY-3 03/01/2020 7:45 AM Associated attestation - Oliverio Herrmann MD - 03/02/2020 6:29 PM EST Patient remains constipated and has difficulty completing his urinary stream. Will hopefully achieve discharge readiness tomorrow. He will likely be discharged with a chest tube in place with plans for removal as an outpatient. I personally performed a face to face diagnostic evaluation on this patient. I agree with the findings and plan of care as documented by the resident/STRIP ROLLER/PSYCHOMETRIC EXAMINER/PA, unless otherwise noted. Oliverio Herrmann MD * Laura Cardona, EDGE WORKER - 02/29/2020 1:33 PM EST Physical Therapy Facility/Department: [facility] Daily Treatment Note NAME: Oswaldo Corley : 1940 Date of Service: 02/29/2020 Discharge Recommendations: Home with assist PRN, Outpatient PT PT Equipment Recommendations Equipment Needed: (TBD) Assessment Body structures, Functions, Activity limitations: Decreased functional mobility ;Decreased strength;Increased pain;Decreased balance;Decreased endurance Assessment: Pt mobility limited by continuous suction on chest tubes. Pt reports decreased endurance with minimal activity. Anticipate progressing to home at discharge but will continue to assess once pt can be more mobile. Prognosis: Good Decision Making: Medium Complexity REQUIRES PT FOLLOW UP: Yes Activity Tolerance Activity Tolerance: Patient limited by endurance Patient Diagnosis(es): There were no encounter diagnoses. has a past medical history of Aneurysm of aorta (HCC), Bronchiectasis (HCC), CAD (coronary artery disease), Chronic hypoxemic respiratory failure (HCC), COPD (chronic obstructive pulmonary disease) (HCC), HLD (hyperlipidemia), HTN (hypertension), Influenza B, Nocturnal hypoxia, On home O2, and Prostate CA (HCC). has a past surgical history that includes Coronary artery bypass graft (1999); Coronary angioplastywith stent (2012); TURP; Lung biopsy (Left, 2019); and thoracotomy (Left, 02/20/2020). Restrictions Restrictions/Precautions Restrictions/Precautions: Fall Risk, General Precautions Required Braces or Orthoses?: No Position Activity Restriction Other position/activity restrictions: 2 CT's to continuous suction, Pt on 4L O2 via NC No IS, no coughing Subjective General Chart Reviewed: Yes Family / Caregiver Present: No Subjective Subjective: Pt supine in bed. Agreeable to PT. Pt expressed concerns about the color of his urine about 15 times during session. RN notified and paged Pain Screening Patient Currently in Pain: (no c/o pain) Vital Signs Patient Currently in Pain: (no c/o pain) Orientation Orientation Overall Orientation Status: Within Normal Limits Cognition Cognition Overall Cognitive Status: WNL Objective Bed mobility Supine to Sit: Minimal assistance Scooting: Stand by assistance Transfers Sit to Stand: Stand by assistance Stand to sit: Stand by assistance Comment: cues to watch for lines/tubes, suazo, 2 CT's Ambulation Ambulation?: Yes Ambulation 1 Surface: level tile Device: Rolling Walker Assistance: Contact guard assistance Gait Deviations: Decreased step height;Decreased step length Distance: 5 ft forward and backwards x 5 reps. limited by suction on chest tubes. Comments: SOB noted with activity Stairs/Curb Stairs?: No Balance Comments: standing with FWW for support while doing standing exercises, CGA Exercises Hip Flexion: standing marches x 10 reps, AROM Hip Abduction: standing with UE support x 10 reps, AROM, BLE Ankle Pumps: standing heel raises x 10 reps Upper Extremity: P&C ex's #1-6 x 10 reps with cues for correct motion Comments: mini squats x 10 reps with UE support on walker Goals Short term goals Time Frame for Short term goals: 2 weeks Short term goal 1: bed mobility indep, PROGRESSING Short term goal 2: sit to stand indep, PROGRESSING Short term goal 3: Amb 250' or 5 minutes, RPE<14, (modif) indep, LIMITED THIS DATE Short term goal 4: Curb step supv, NOT ADDRESSED Short term goal 5: Indep P&C ex., PROGRESSING Patient Goals Patient goals : not be so nauseated Plan Plan Times per week: 5 Plan weeks: 2 Current Treatment Recommendations: Strengthening, ROM, Balance Training, Functional Mobility Training, Stair training, Gait Training, Endurance Training, Transfer Training Safety Devices Type of devices: All fall risk precautions in place, Call light within reach, Left in chair Restraints Initially in place: No Therapy Time Individual Concurrent Group Co-treatment Time In 1200 Time Out 1224 Minutes 24 Timed Code Treatment Minutes: 24 Minutes(gait, TP) *This EDGE WORKER wore N95, gloves and safety glasses during whole treatment session.* Laura Cardona PTA * Laura Cardona EDGE WORKER - 02/29/2020 9:59 AM EST Physical Therapy Pt currently getting breathing treatment, will re-attempt as schedule allows. Laura Cardona PTA * Daniela Walls MD - 02/29/2020 7:14 AM EST Cardiothoracic Surgery Progress Note PATIENT NAME: Oswaldo Corley TODAY'S DATE: 02/29/2020 SUBJECTIVE: Resting comfortably in bed this am. No fevers, chills. Tolerating diet. Pain controlled. Passing flatus. Suazo remains in place for urinary retention. L CT #1 output: 10 / - L CT #2 output: 100 / - OBJECTIVE: VITALS: BP (!) 106/58 Pulse 86 Temp 97.8 F (36.6 C) (Temporal) Resp 16 Ht 6' (1.829 m) Wt195 lb (88.5 kg) SpO2 93% BMI 26.45 kg/m BMI Classification: Overweight (BMI 25.0-29.9) INTAKE/OUTPUT: I/O last 3 completed shifts: In: 1800 [P.O.:1800] Out: 760 [Urine:650; Chest Tube:110] No intake/output data recorded. CONSTITUTIONAL: NAD, awake and alert. RESPIRATORY: Nonlabored normal respiratory effort, no stridor, equal and bilateral chest rise. On RA. L CT x2 in place. #1 with minimal serous fluid, no air leak. #2 with serous fluid, +1 air leak. CV: regular rate and rhythm ABDOMEN: Soft, non-distended, non-tender. Indwelling suazo catheter in place EXTREMITIES: No edema or cyanosis WOUND: Left thoracotomy incision c/d/i Data: CBC: Recent Labs 02/27/20 0440 02/28/20 0120 02/29/20 0017 WBC 7.7 7.4 7.7 HGB 11.6* 10.6* 10.7* HCT 35.3* 32.4* 32.5* PLT 282 267 299 BMP: Recent Labs 02/27/20 0440 02/28/20 0120 02/29/20 0017 NA 133* 133* 134* K 4.4 3.9 3.9 CL 98 98 99 CO2 34* 29 30 BUN 15 15 17 CREATININE 0.72 0.66 0.69 GLUCOSE 111* 104* 109* Hepatic: No results for input(s): AST, ALT, ALB, BILITOT, ALKPHOS in the last 72 hours. CXR 02/28 Final read pending. Preliminary shows persistence of small left pneumothorax ASSESSMENT AND PLAN: Oswaldo Corley is a 79 y.o. male with left lower lobe lung nodule s/p left VATS converted to leftopen thoracotomy, wedge resection of left lower lobe 02/19 -Continue left chest tubes to suction, increase suction from 20->25 cm H20. Monitor output. S/p instillation of talc slurry through chest tube 02/24. + air leak still present, slightly improved after talc slurry. -Daily CXR -Avoid incentive spirometer, coughing in an effort to resolve air leak. -Will give a few more days to allow talc slurry to work. Will consider home going heimlich valve. -Cardiac diet as tolerated -Indwelling suazo placed by urology, appreciate recs. Plan for void trial on day of discharge. ContFlomax. -Follow up surgical pathology -Pain management following -PT/OT -bowel regimen -ASA, plavix restarted -DVT prophylaxis SCDs, lovenox -Continue H6 care Daniela Walls MD General Surgery, PGY-3 02/29/2020 7:14 AM Associated attestation - Mario Wayne MD - 02/29/2020 11:18 AM EST I independently saw and evaluated the patient - including reviewing the labs, imaging studies, and available documentation. I agree with the findings and plan of care as documented by the resident/STRIP ROLLER/PSYCHOMETRIC EXAMINER/PA, unless otherwise noted. Please do not hesitate to contact me/us if you have any questions or concerns. Mario Wayne MD FACS * Laura Cardona, EDGE WORKER - 02/28/2020 4:06 PM EST Physical Therapy Facility/Department: [facility] Daily Treatment Note NAME: Oswaldo Corley : 1940 Date of Service: 02/28/2020 Discharge Recommendations: Home with assist PRN, Outpatient PT PT Equipment Recommendations Equipment Needed: (potential FWW in short term (TBD)) Assessment Assessment: Pt mobility limited by continuous suction on chest tubes. Pt reports decreased endurance with minmal activity. Anticiapte progressing to home at discharge but will continue to assess oncept can be more mobile. Prognosis: Good Decision Making: Medium Complexity REQUIRES PT FOLLOW UP: Yes Activity Tolerance Activity Tolerance: Patient limited by endurance Patient Diagnosis(es): There were no encounter diagnoses. has a past medical history of Aneurysm of aorta (HCC), Bronchiectasis (HCC), CAD (coronary artery disease), Chronic hypoxemic respiratory failure (HCC), COPD (chronic obstructive pulmonary disease) (HCC), HLD (hyperlipidemia), HTN (hypertension), Influenza B, Nocturnal hypoxia, On home O2, and Prostate CA (HCC). has a past surgical history that includes Coronary artery bypass graft (1999); Coronary angioplastywith stent (2012); TURP; Lung biopsy (Left, 2019); and thoracotomy (Left, 02/20/2020). Restrictions Restrictions/Precautions Restrictions/Precautions: Fall Risk, General Precautions Required Braces or Orthoses?: No Position Activity Restriction Other position/activity restrictions: 2 CT's to continuous suction, Pt on 4L O2 via NC No IS, no coughing Subjective General Chart Reviewed: Yes Family / Caregiver Present: No Subjective Subjective: Pt sitting up in chair. Agreeable to PT. Pain Screening Patient Currently in Pain: (describes it as soreness not pain) Vital Signs Patient Currently in Pain: (describes it as soreness not pain) Orientation Orientation Overall Orientation Status: Within Normal Limits Cognition Cognition Overall Cognitive Status: WNL Objective Transfers Sit to Stand: Stand by assistance Stand to sit: Stand by assistance Comment: cues to watch for lines/tubes, suazo, 2 CT's, suazo Ambulation Ambulation?: Yes Ambulation 1 Surface: level tile Device: Rolling Walker Assistance: Contact guard assistance Gait Deviations: Decreased step height;Decreased step length Distance: 5 ft forward and backwards x 5 reps. limited by suction on chest tubes. Comments: SOB noted with activity Stairs/Curb Stairs?: No Balance Comments: standing with FWW for support while doing standing exercises, CGA Exercises Hip Flexion: standing marches x 10 reps, AROM Ankle Pumps: standing heel raises 2 sets x 10 reps Upper Extremity: P&C ex's #1-7, except #5 x 10 reps with cues for correct motion Comments: mini squats 2 sets x 10 reps with UE support on walker Goals Short term goals Time Frame for Short term goals: 2 weeks Short term goal 1: bed mobility indep, PROGRESSING Short term goal 2: sit to stand indep, PROGRESSING Short term goal 3: Amb 250' or 5 minutes, RPE<14, (modif) indep, LIMITED THIS DATE Short term goal 4: Curb step supv, NOT ADDRESSED Short term goal 5: Indep P&C ex., PROGRESSING Patient Goals Patient goals : not be so nauseated Plan Plan Times per week: 5 Plan weeks: 2 Current Treatment Recommendations: Strengthening, ROM, Balance Training, Functional Mobility Training, Stair training, Gait Training, Endurance Training, Transfer Training Safety Devices Type of devices: All fall risk precautions in place, Call light within reach, Left in chair Restraints Initially in place: No Therapy Time Individual Concurrent Group Co-treatment Time In 1516 Time Out 1546 Minutes 30 Timed Code Treatment Minutes: 30 Minutes(gait, TP) *This EDGE WORKER wore N95, gloves and safety glasses during whole treatment session.* Laura Cardona PTA * Daniela Walls MD - 02/28/2020 7:18 AM EST Cardiothoracic Surgery Progress Note PATIENT NAME: Oswaldo Corley TODAY'S DATE: 02/28/2020 SUBJECTIVE: Resting comfortably in bed this am. No fevers, chills. Tolerating diet. Pain controlled. Suazo remains in place for urinary retention. On 4LNC L CT #1 output: 10 / [address] #2 output: 50 / 30 OBJECTIVE: VITALS: BP 137/64 Pulse 79 Temp 97.9 F (36.6 C) (Temporal) Resp 18 Ht 6' (1.829 m) Wt 195lb (88.5 kg) SpO2 97% BMI 26.45 kg/m BMI Classification: Overweight (BMI 25.0-29.9) INTAKE/OUTPUT: I/O last 3 completed shifts: In: 500 [P.O.:500] Out: 755 [Urine:660; Chest Tube:95] No intake/output data recorded. CONSTITUTIONAL: NAD, awake and alert. RESPIRATORY: Nonlabored normal respiratory effort, no stridor, equal and bilateral chest rise. On RA. L CT x2 in place. #1 with minimal serous fluid, no air leak. #2 with serous fluid, +1 air leak. CV: regular rate and rhythm ABDOMEN: Soft, non-distended, non-tender. Indwelling suazo catheter in place EXTREMITIES: No edema or cyanosis WOUND: Left thoracotomy incision c/d/i Data: CBC: Recent Labs 02/26/208 02/27/20 0440 02/28/20 0120 WBC 8.7 7.7 7.4 HGB 10.8* 11.6* 10.6* HCT 32.4* 35.3* 32.4* PLT 278 282 267 BMP: Recent Labs 02/26/208 02/27/20 0440 02/28/20 0120 NA 132* 133* 133* K 4.5 4.4 3.9 CL 99 98 98 CO2 31* 34* 29 BUN 12 15 15 CREATININE 0.70 0.72 0.66 GLUCOSE 111* 111* 104* Hepatic: No results for input(s): AST, ALT, ALB, BILITOT, ALKPHOS in the last 72 hours. CXR 02/26 Conclusion(s): 1. Small left pneumothorax with no change. 2. Bibasilar subsegmental atelectasis. 3. Stable position of thoracostomy tubes. ASSESSMENT AND PLAN: Oswaldo Corley is a 79 y.o. male with left lower lobe lung nodule s/p left VATS converted to leftopen thoracotomy, wedge resection of left lower lobe 02/19 -Continue left chest tubes to suction, increase suction from 20->25 cm H20. Monitor output. S/p instillation of talc slurry through chest tube 02/24. + air leak still present, improved after talc slurry. -Daily CXR -Avoid incentive spirometer, coughing in an effort to resolve air leak. -Will give a few more days to allow talc slurry to work. Will consider home going heimlich valve. -Cardiac diet as tolerated -Indwelling suazo placed by urology, appreciate recs. Plan for void trial on day of discharge. ContFlomax. -Follow up surgical pathology -Pain management following -PT/OT -bowel regimen -ASA, plavix restarted -DVT prophylaxis SCDs, lovenox -Continue H6 care Daniela Walls MD General Surgery, PGY-3 02/28/2020 7:18 AM Associated attestation - Mario Wayne MD - 02/28/2020 1:27 PM EST I independently saw and evaluated the patient - including reviewing the labs, imaging studies, and available documentation. I agree with the findings and plan of care as documented by the resident/STRIP ROLLER/PSYCHOMETRIC EXAMINER/PA, unless otherwise noted. Please do not hesitate to contact me/us if you have any questions or concerns. Mario Wayne MD FACS * Marsha Hill, MS, RD, LD - 02/27/2020 4:19 PM EST Comprehensive Nutrition Assessment Type and Reason for Visit: Reassess Nutrition Recommendations/Plan: 1. Per MNT protocol liberalize diet to General to promote po intake. Patient has had continued decreased intake since admission. 2. Per MNT protocol discontinue Ensure HP oral nutritional supplements per patient request. 3. Recommend document % meals consumed in nursing flow sheets 4. Recommend obtain current weight to monitor for weight loss 5. RD continue to monitor overall nutritional status and follow up weekly Nutrition Assessment: Patient with left lower lobe lung nodule s/p left VATS converted to left openthoracotomy, wedge resection of left lower lobe 02/19. Patient with bilateral chest tubes. Patient lying in bed during RD visit. Reports he is consuming 'about 1/3' of his meals and dislikes the Ensure HP supplements 'they give me the runs' and would like to discontinue them. Three Ensure HP noted in room. Malnutrition Assessment: Malnutrition Status: At risk for malnutrition (Comment) Context: Acute Illness Findings of the 6 clinical characteristics of malnutrition: Energy Intake: 7 - 50% or less of estimated energy requirements for 5 or more days Weight Loss: Unable to assess Estimated Daily Nutrient Needs: Energy (kcal): 9554-7907; Weight Used for Energy Requirements: [place] Protein (g): 97-113; Weight Used for Protein Requirements: [place](1.2-1.5g/kg) Fluid (ml/day): Per MD; Method Used for Fluid Requirements: (N/A) Nutrition Related Findings: hypoactive bowel sounds; +nausea; +distended abdomen; chest tubes x2; -I&O; Polo 20 Wounds: Surgical Incision Anthropometric Measures: Height: 6' (182.9 cm) Current Body Weight: (no new weight) Usual Body Weight: 198 lb (89.8 kg)(02/15) [place] Body Weight: 178 lbs; % [place] Body Weight 109.6 % BMI: 26.4 Adjusted Body Weight: ; No Adjustment BMI Categories: Overweight (BMI 25.0-29.9) Nutrition Interventions: Food and/or Nutrient Delivery: Continue Current Diet, Discontinue Oral Nutrition Supplement Nutrition Education/Counseling: No recommendation at this time Coordination of Nutrition Care: Continue to monitor while inpatient Goals: Pt will consume >50% at meals and ONS Nutrition Monitoring and Evaluation: Food/Nutrient Intake Outcomes: Diet Advancement/Tolerance, Food and Nutrient Intake Physical Signs/Symptoms Outcomes: Biochemical Data, Diarrhea, GI Status, Nausea or Vomiting, Fluid Status or Edema, Weight, Skin Discharge Planning: Continue current diet Contact: pager [phone] * Laura Cardona PTA - 02/27/2020 10:27 AM EST Physical Therapy Facility/Department: [facility] Daily Treatment Note NAME: Oswaldo Corley : 1940 Date of Service: 02/27/2020 Discharge Recommendations: Home with assist PRN, Outpatient PT PT Equipment Recommendations Equipment Needed: (potential FWW in short term (TBD)) Assessment Body structures, Functions, Activity limitations: Decreased functional mobility ;Decreased strength;Increased pain;Decreased balance;Decreased endurance Assessment: Pt limited by decreased endurance and required frequent rest breaks. Mobility limited this date by continuous suction on chest tube. Pt expresses multiple times he cant believe how weak he is. Encouraged pt to sit up in recliner but declined. Anticipate progressing to homegoing at discharge but will continue to assess once he can be more mobile. Prognosis: Good Decision Making: Medium Complexity REQUIRES PT FOLLOW UP: Yes Activity Tolerance Activity Tolerance: Patient limited by endurance Patient Diagnosis(es): There were no encounter diagnoses. has a past medical history of Aneurysm of aorta (HCC), Bronchiectasis (HCC), CAD (coronary artery disease), Chronic hypoxemic respiratory failure (HCC), COPD (chronic obstructive pulmonary disease) (HCC), HLD (hyperlipidemia), HTN (hypertension), Influenza B, Nocturnal hypoxia, On home O2, and Prostate CA ([facility]). has a past surgical history that includes Coronary artery bypass graft (1999); Coronary angioplastywith stent (2012); TURP; Lung biopsy (Left, 2019); and thoracotomy (Left, 02/20/2020). Restrictions Restrictions/Precautions Restrictions/Precautions: Fall Risk, General Precautions Required Braces or Orthoses?: No Position Activity Restriction Other position/activity restrictions: 2 CT's to continuous suction, Pt on 4L O2 via NC No IS, no deep breathing, limit coughing, per physician notes and orders. . Subjective General Chart Reviewed: Yes Family / Caregiver Present: No Subjective Subjective: Pt supine in bed with HOB up. Agreeable to PT. Pain Screening Patient Currently in Pain: Yes Pain Assessment Pain Assessment: 0-10 Pain Level: 8 Pain Type: Surgical pain Pain Location: Flank Pain Orientation: Left Vital Signs Patient Currently in Pain: Yes Orientation Orientation Overall Orientation Status: Within Normal Limits Cognition Cognition Overall Cognitive Status: WNL Objective Bed mobility Supine to Sit: Minimal assistance Sit to Supine: Stand by assistance Scooting: Stand by assistance Transfers Sit to Stand: Contact guard assistance Stand to sit: Contact guard assistance Ambulation Ambulation?: Yes Ambulation 1 Surface: level tile Device: No Device Assistance: Contact guard assistance Gait Deviations: Decreased step length;Decreased step height Distance: 3 ft bed to BSC and back Comments: limited by continuous suction. Pt declined to sit in chair. SOB with minimal activity. Stairs/Curb Stairs?: No Balance Comments: Pt sat EOB with supervision. Performed ther ex while sitting EOB, rest breaks needed frequently. Pt sat on commode but did not have a BM. Pt performed mouth care while sitting on commode per his request. Exercises Hip Flexion: seated x 6 reps, BLE, AROM Knee Long Arc Quad: seated x 10 reps, BLE, AROM Ankle Pumps: seated x 10 reps Upper Extremity: P&C ex's #1-9 x 6-10 reps with cues for correct motion through out session Goals Short term goals Time Frame for Short term goals: 2 weeks Short term goal 1: bed mobility indep, PROGRESSING Short term goal 2: sit to stand indep, PROGRESSING Short term goal 3: Amb 250' or 5 minutes, RPE<14, (modif) indep, LIMITED THIS DATE Short term goal 4: Curb step supv, NOT ADDRESSED Short term goal 5: Indep P&C ex., PROGRESSING Patient Goals Patient goals : not be so nauseated Plan Plan Times per week: 5 Plan weeks: 2 Current Treatment Recommendations: Strengthening, ROM, Balance Training, Functional Mobility Training, Stair training, Gait Training, Endurance Training, Transfer Training Safety Devices Type of devices: All fall risk precautions in place, Left in bed, Call light within reach Restraints Initially in place: No Therapy Time Individual Concurrent Group Co-treatment Time In 929 Time Out 1008 Minutes 38 Timed Code Treatment Minutes: 28 Minutes(FA, TP) Variance: 10(on BSC) *This EDGE WORKER wore N95, gloves and safety glasses during whole treatment session.* Laura Cardona EDGE WORKER * Daniela Walls MD - 02/27/2020 7:44 AM EST Cardiothoracic Surgery Progress Note PATIENT NAME: Oswaldo Corley TODAY'S DATE: 02/27/2020 SUBJECTIVE: Resting comfortably in bed this am. No fevers, chills. Tolerating diet. Pain controlled. Suazo remains in place for urinary retention. On 4LNC L CT #1 output: 20 / [address] #2 output: 70 / 120 OBJECTIVE: VITALS: BP 115/64 Pulse 76 Temp 97.4 F (36.3 C) (Temporal) Resp 14 Ht 6' (1.829 m) Wt 195lb (88.5 kg) SpO2 96% BMI 26.45 kg/m BMI Classification: Overweight (BMI 25.0-29.9) INTAKE/OUTPUT: I/O last 3 completed shifts: In: - Out: 1160 [Urine:950; Chest Tube:210] No intake/output data recorded. CONSTITUTIONAL: NAD, awake and alert. RESPIRATORY: Nonlabored normal respiratory effort, no stridor, equal and bilateral chest rise. On RA. L CT x2 in place. #1 with minimal serous fluid, no air leak. #2 with serous fluid, +1 air leak. CV: regular rate and rhythm ABDOMEN: Soft, non-distended, non-tender. Indwelling suazo catheter in place EXTREMITIES: No edema or cyanosis WOUND: Left thoracotomy incision c/d/i Data: CBC: Recent Labs 02/25/20 0450 02/26/208 02/27/20 0440 WBC 7.1 8.7 7.7 HGB 9.8* 10.8* 11.6* HCT 29.7* 32.4* 35.3* PLT 229 278 282 BMP: Recent Labs 02/25/200 02/26/208 02/27/20 0440 NA 131* 132* 133* K 4.3 4.5 4.4 CL 99 99 98 CO2 31* 31* 34* BUN 13 12 15 CREATININE 0.68 0.70 0.72 GLUCOSE 138* 111* 111* Hepatic: No results for input(s): AST, ALT, ALB, BILITOT, ALKPHOS in the last 72 hours. CXR 02/26 Conclusion(s): 1. Small left pneumothorax with no change. 2. Bibasilar subsegmental atelectasis. 3. Stable position of thoracostomy tubes. ASSESSMENT AND PLAN: Oswaldo Corley is a 79 y.o. male with left lower lobe lung nodule s/p left VATS converted to leftopen thoracotomy, wedge resection of left lower lobe 02/19 -Continue left chest tubes to suction, increase suction from 20->25 cm H20. Monitor output. S/p instillation of talc slurry through chest tube 02/24. +` air leak still present, improved after talcslurry. -Daily CXR -Avoid incentive spirometer, coughing in an effort to resolve air leak. -Will give a few more days to allow talc slurry to work. Will consider home going heimlich valve. -Cardiac diet as tolerated -Indwelling suazo placed by urology, appreciate recs. Plan for void trial on day of discharge. ContFlomax. -Follow up surgical pathology -Pain management following -PT/OT -bowel regimen -ASA, plavix restarted -DVT prophylaxis SCDs, lovenox -Continue H6 care Danieal aWlls MD General Surgery, PGY-3 02/27/2020 7:47 AM Associated attestation - Mario Wayne MD - 02/27/2020 9:10 AM EST I independently saw and evaluated the patient - including reviewing the labs, imaging studies, and available documentation. I agree with the findings and plan of care as documented by the resident/STRIP ROLLER/PSYCHOMETRIC EXAMINER/PA, unless otherwise noted. Diminishing air leak; continue to observe. Please do not hesitate to contact me/us if you have any questions or concerns. Mario Wayne MD FACS * Rodrick Sullivan MD - 02/26/2020 8:14 AM EST Cardiothoracic Surgery Progress Note PATIENT NAME: Oswaldo Corley TODAY'S DATE: 02/26/2020 SUBJECTIVE: POD#6 Resting comfortably in bed this am. Had a BM yesterday, nausea resolved. No fevers, chills. Tolerating diet. Pain controlled. Suazo remains in place for urinary retention. On RA L CT #1 output: [address] #2 output: 200 cc OBJECTIVE: VITALS: BP 123/71 Pulse 78 Temp 98.2 F (36.8 C) (Temporal) Resp 16 Ht 6' (1.829 m) Wt 195lb (88.5 kg) SpO2 95% BMI 26.45 kg/m BMI Classification: Overweight (BMI 25.0-29.9) INTAKE/OUTPUT: I/O last 3 completed shifts: In: 650.4 [P.O.:650; I.V.:0.4] Out: 1950 [Urine:1700; Chest Tube:250] No intake/output data recorded. CONSTITUTIONAL: NAD, awake and alert. RESPIRATORY: Nonlabored normal respiratory effort, no stridor, equal and bilateral chest rise. On RA. L CT x2 in place to suction with air leak present, slightly decreased from yesterday. Serosanguinous output CV: regular rate and rhythm ABDOMEN: Soft, non-distended, non-tender. Indwelling suazo catheter in place EXTREMITIES: No edema or cyanosis WOUND: Left thoracotomy incision c/d/i Data: CBC: Recent Labs 02/24/20 0232 02/25/20 0450 02/26/20 0328 WBC 7.5 7.1 8.7 HGB 10.2* 9.8* 10.8* HCT 30.8* 29.7* 32.4* PLT 231 229 278 BMP: Recent Labs 02/24/20 0232 02/25/20 0450 02/26/20 0328 NA 133* 131* 132* K 4.1 4.3 4.5 CL 96* 99 99 CO2 30 31* 31* BUN 18 13 12 CREATININE 0.68 0.68 0.70 GLUCOSE 98 138* 111* Hepatic: No results for input(s): AST, ALT, ALB, BILITOT, ALKPHOS in the last 72 hours. CXR 02/25: increased left pneumothorax, radiology read pending ASSESSMENT AND PLAN: Oswaldo Corley is a 79 y.o. male with left lower lobe lung nodule. He is s/p left VATS converted to left open thoracotomy, wedge resection of left lower lobe 02/19 -Continue left chest tubes to suction, increase suction from 20->25 cm H20. Monitor output. S/p instillation of talc slurry through chest tube 02/24. Awaiting resolution of air leak -Daily CXR -Avoid incentive spirometer, coughing in an effort to resolve air leak. -Cardiac diet as tolerated -Indwelling suazo placed by urology, appreciate recs. Plan for void trial on day of discharge. ContFlomax. -Follow up surgical pathology -Pain management following -PT/OT -bowel regimen -ASA, plavix restarted -DVT prophylaxis SCDs, lovenox -Continue H6 care Rodrick Sullivan MD, Pager #[phone] 02/26/2020 at 8:14 AM Associated attestation - Mario Wayne MD - 02/26/2020 11:07 AM EST I independently saw and evaluated the patient - including reviewing the labs, imaging studies, and available documentation. I agree with the findings and plan of care as documented by the resident/STRIP ROLLER/PSYCHOMETRIC EXAMINER/PA, unless otherwise noted. Please do not hesitate to contact me/us if you have any questions or concerns. Mario Wayne MD FACS * Iqra Gould, IMPROVEMENT COORDINATOR - LEGAL STENOGRAPHER - 02/25/2020 3:23 PM EST PAGING: The Acute Pain Service providers are available by pager. Please reference [employer] and/or [facility] Phonebook for Pain Management Provider PHYSICIAN OFFICE NURSE and direct all questions to the provider listed. 02/25/2020 Referring Physician: Oliverio Herrmann MD Subjective: We have been asked to see this 79 y.o. male for postoperative pain management s/p surgery 02/20/2020: Procedure: 1. Flexible bronchoscopy 2. Left Video-assisted thoracoscopy converted to left open thoracotomy 3. Wedge resection of left lower lobe mass PMH reviewed below, significant for: nocturnal hypoxia, home O2, chronic hypoxemic respiratory failure MIGEL, no pages. Upon arrival, patient sleeping. CARE MANAGER CNA was discontinued this morning by primary team and transitioned patient to oral medications. No acute events overnight. Due to the current environment of [place] [id number], PPE was worn for the duration of all face to face encounters including but not limited to an N95 in accordance with CDC and hospital guidelines. Pain Frequency: intermittent Pain Location: chest--> surgical site Pain Radiation: nonradiating Pain Quality: aching, throbbing and tender Adverse effect to opioids: none Timing: Intermittent Onset: : Post surgical. Bowel status: + flatus Social History Tobacco Use Smoking Status Former Smoker Years: 80.00 Start date: 1962 Quit date: 2002 Years since quittin.9 Smokeless Tobacco Never Used Social History Substance and Sexual Activity Alcohol Use Yes Alcohol/week: 3.0 standard drinks Types: 3 Cans of beer per week Frequency: 2-3 times a week Comment: 3 beers a week Social History Substance and Sexual Activity Drug Use Not Currently Pain Management: n/a The patient's medical history and physical assessment, medications, allergies, patient's current medical condition, imaging, and labs were reviewed as part of this consultation. [x] Patient's Medications have been reviewed. [x] Patient's OARRS report (PDMP) have been reviewed. ORS 20 01/24/2020 2 10/28/2019 Lorazepam 1 MG Tablet 90.00 30 Ma Eld 10/28/2019 2 10/28/2019 Lorazepam 1 MG Tablet 90.00 30 Ma Eld 09/04/2019 2 04/21/2019 Lorazepam 1 MG Tablet 90.00 30 Ma Eld 05/22/2019 2 04/21/2019 Lorazepam 1 MG Tablet 90.00 30 Ma Eld 04/21/2019 2 04/21/2019 Lorazepam 1 MG Tablet 90.00 30 Ma Eld 03/13/2019 2 12/07/2018 Lorazepam 1 MG Tablet 90.00 30 Objective Findings: Height: 6' (182.9 cm) Weight: 195 lb (88.5 kg) BMI (Calculated): 26.5 Vital signs: Blood pressure 104/68, pulse 80, temperature 98.2 F (36.8 C), temperature source Temporal, resp. rate 16, height 6' (1.829 m), weight 195 lb (88.5 kg), SpO2 96 %. Lab Results Component Value Date/Time HGB 9.8 (L) 02/25/2020 04:50 AM HCT 29.7 (L) 02/25/2020 04:50 AM PLT 229 02/25/2020 04:50 AM WBC 7.1 02/25/2020 04:50 AM NA 131 (L) 02/25/2020 04:50 AM K 4.3 02/25/2020 04:50 AM BUN 13 02/25/2020 04:50 AM CREATININE 0.68 02/25/2020 04:50 AM GLUCOSE 138 (H) 02/25/2020 04:50 AM Allergies: Isosorbide nitrate Past Medical History: Diagnosis Date Aneurysm of aorta (HCC) Bronchiectasis (HCC) CAD (coronary artery disease) Chronic hypoxemic respiratory failure (HCC) COPD (chronic obstructive pulmonary disease) (HCC) HLD (hyperlipidemia) HTN (hypertension) Influenza B Nocturnal hypoxia On home O2 2 Liters at bedtime Prostate CA (HCC) Past Surgical History: Procedure Laterality Date CORONARY ANGIOPLASTY WITH STENT PLACEMENT 2012 LAD, occluded FRANCIA and COLEMAN CORONARY ARTERY BYPASS GRAFT 1999 LUNG BIOPSY Left 2019 THORACOTOMY Left 02/20/2020 VATS TURP Family History Problem Relation Age of Onset Cancer Mother Cancer Sister Diabetes Father Heart Disease Father Diabetes Brother Patient Active Problem List Diagnosis Lung nodule Urinary retention Review of Systems Unable to perform ROS: Other (Patient was sleeping) Constitutional: Positive for appetite change. Gastrointestinal: Positive for nausea (occasional). Skin: Negative for wound. Psychiatric/Behavioral: Negative for agitation. Physical Exam Vitals signs and nursing note reviewed. Constitutional: Appearance: Normal appearance. HENT: Head: Normocephalic and atraumatic. Cardiovascular: Rate and Rhythm: Normal rate. Pulmonary: Comments: CT x 2 to suction--> SS output Chest: Chest wall: Tenderness present. Neurological: Mental Status: He is alert and oriented to person, place, and time. Psychiatric: Behavior: Behavior normal. Behavior is cooperative. Pain Management Adjuvants: 0700 --> 0700 02/20/202002/20 Scheduled APAP 4000mg 3000mg 2000mg 3,000 mg PRN Dilaudid CARE MANAGER CNA 7.2mg 7.4mg (12h) 9.4mg 8.4 mg CARE MANAGER CNA was discontinued this AM Lorazepam po 0 0.5mg 0 BLOCK: Exparel Block Injection date: 02/19 Medication : Bupivacaine liposome injectable suspension Location: Erector Spinae/Serratus Plane Side Effects: Denies nausea, headache, constipation, dysgeusia, pyrexia, hypoesthesia, muscle twitching, vomiting, pruritus, dizziness, hypertension, dyspepsia. Assessment: 1. Acute postsurgical chest pain 2. Opioid naive Pain Management Plan: 1. Hydromorphone CARE MANAGER CNA was discontinued by primary team and PO medications were added. Acetaminophen 1000 mg po TID ATC. No Ketorolac per CTS Erector Spinae/Serratus plane Exparel block 02/19 Lidocaine patches x 2. Cut and place as needed. Start date: 02/23 Order Sennakot-S 8.6/50mg, 1 tablet PO BID. Order Milk of Magnesia 400mg/5ml, administer 30mL by mouth daily PRN. ? Will sign off at this time. Thank you for allowing us to participate in the care and treatment ofyour patient. Should pain become an issue, please re- consult our service. Thank you. Plan discussed with patient who appears to understand and agrees. PAGING: The Acute Pain Service providers are available by pager. Please reference [employer] and/or [facility] Phonebook for Pain Management Provider PHYSICIAN OFFICE NURSE and direct all questions to the provider listed. * Skyler Schneider RCP - 02/25/2020 10:14 AM EST Patient Evaluation Form The patient is currently receiving duoneb qid Points 0 1 2 3 4 Points Totals Pulmonary Status (-/+) History Smoking history < 20 pack years Smoking history > 20 pack years Pulmonary Disorder (acute or chronic) Severe or Chronic with Exacerbation 3 Surgical Status No Surgery Trach PEG General Surgery Lower Abdominal Thoracic or Upper Abdominal Thoracic with Pulmonary Disorder 3 Chest X-ray Clear None Ordered Chronic Changes CXR results Pending Infiltrates, atelectasis, pleural effusion, or edema Infiltrates in more than one lobe Infiltrate + Atelectasis, &/or pleural effusion 2 Respiratory Pattern Regular, RR = 12-20 Increased, RR = 21-25 [place], irregular, or RR = 26-30 Decreased FEV1 or RR = 31-35 Severe SOB, used of of accessory muscles, or RR = > 35 0 Mental Status Alert, oriented, cooperative Confused, but follows commands Lethargic or un-able to follow commands Obtunded Comatose 0 Breath Sounds Clear to auscultation Decreased unilaterally or in bases only Decreased bilaterally Crackles or intermittent wheezes Wheezes 1 Cough Strong, spontaneous, & nonproductive Strong, spontaneous, & productive Weak, nonproductive Weak, productive or with wheezes No spontaneous cough or may require suctioning 0 Level of Activity Ambulatory Ambulatory with Assist Non-ambulatroy Paraplegic Quadriplegic 1 Triage 1 > 20 pts Triage 2 16-20 pts Triage 3 11- 15 pts Triage 4 6 - 10 pts Triage 5 0 - 5 pts TOTAL POINTS = 10 Triage Score = 4 PEF: FVC: FEV1: FVE1/FVC: Patient instructed and returned demonstration on use of MDI (with spacer, as appropriate) No Changing Therapy to duoneb tid * Virgilio Horton PTA - 02/25/2020 8:47 AM EST Physical Therapy Attempted PT and pt politely declined. Educated pt on the importance of getting OOB, pt states he will try later. Will re-attempt as schedule permits. * Rodrick Sullivan MD - 02/25/2020 8:03 AM EST Cardiothoracic Surgery Progress Note PATIENT NAME: Oswaldo Corley TODAY'S DATE: 02/25/2020 SUBJECTIVE: POD#5 Resting comfortably in bed this am. Continues to endorse intermittent nausea, no vomiting, fevers, chills. Tolerating diet. Ambulated with PT yesterday. Passing flatus but has not had a BM, feels he might have one this am. L CT #1 output: [address] #2 output: 190 cc OBJECTIVE: VITALS: BP 119/62 Pulse 76 Temp 98.2 F (36.8 C) (Temporal) Resp 12 Ht 6' (1.829 m) Wt 195lb (88.5 kg) SpO2 94% BMI 26.45 kg/m BMI Classification: Overweight (BMI 25.0-29.9) INTAKE/OUTPUT: I/O last 3 completed shifts: In: 1261 [P.O.:120; I.V.:1141] Out: 2290 [Urine:2050; Chest Tube:240] No intake/output data recorded. CONSTITUTIONAL: NAD, awake and alert. RESPIRATORY: Nonlabored normal respiratory effort, no stridor, equal and bilateral chest rise. On NC. L CT x2 in place to suction with air leak present, slightly decreased from yesterday. Serosanguinous output CV: regular rate and rhythm ABDOMEN: Soft, mildly distended, non-tender. Indwelling suazo catheter in place EXTREMITIES: No edema or cyanosis WOUND: Left thoracotomy incision c/d/i Data: CBC: Recent Labs 02/23/20 0051 02/24/20 0232 02/25/20 0450 WBC 8.7 7.5 7.1 HGB 10.4* 10.2* 9.8* HCT 31.0* 30.8* 29.7* PLT 216 231 229 BMP: Recent Labs 02/23/20 0051 02/24/20 0232 02/25/20 0450 NA 135 133* 131* K 4.6 4.1 4.3 CL 101 96* 99 CO2 29 30 31* BUN 21* 18 13 CREATININE 0.78 0.68 0.68 GLUCOSE 126* 98 138* Hepatic: No results for input(s): AST, ALT, ALB, BILITOT, ALKPHOS in the last 72 hours. CXR 02/24: pending ASSESSMENT AND PLAN: Oswaldo Corley is a 79 y.o. male with left lower lobe lung nodule. He is s/p left VATS converted to left open thoracotomy, wedge resection of left lower lobe 02/19 -Continue left chest tubes to suction. Monitor output. Plan for instillation of talc slurry throughthe chest tube today -Daily CXR -Avoid incentive spirometer, coughing in an effort to resolve air leak. -Cardiac diet as tolerated -Indwelling suazo placed by urology, appreciate recs. Plan for void trial on day of discharge. ContFlomax. -Follow up surgical pathology -Pain management following, CARE MANAGER CNA discontinued this am, PO meds added -PT/OT -bowel regimen -ASA, plavix restarted -DVT prophylaxis SCDs, lovenox -Continue H6 care Rodrick Sullivan MD, Pager #[phone] 02/25/2020 at 8:03 AM Associated attestation - Mario Wayne MD - 02/25/2020 10:37 AM EST I independently saw and evaluated the patient - including reviewing the labs, imaging studies, and available documentation. I agree with the findings and plan of care as documented by the resident/STRIP ROLLER/PSYCHOMETRIC EXAMINER/PA, unless otherwise noted. Please do not hesitate to contact me/us if you have any questions or concerns. Mario Wayne MD FACS * Iqra Gould, IMPROVEMENT COORDINATOR - LEGAL STENOGRAPHER - 02/24/2020 11:01 AM EST PAGING: The Acute Pain Service providers are available by pager. Please reference [employer] and/or [facility] Phonebook for Pain Management Provider PHYSICIAN OFFICE NURSE and direct all questions to the provider listed. 02/24/2020 Referring Physician: Oliverio Herrmann MD Subjective: We have been asked to see this 79 y.o. male for postoperative pain management s/p surgery 02/20/2020: Procedure: 1. Flexible bronchoscopy 2. Left Video-assisted thoracoscopy converted to left open thoracotomy 3. Wedge resection of left lower lobe mass PMH reviewed below, significant for: nocturnal hypoxia, home O2, chronic hypoxemic respiratory failure NAEON, no pages. Upon arrival, patient sitting up in chair. Patient states his pain is being controlled by the CARE MANAGER CNA. Patient does state that every time he looks at food he gets nauseated. Patient continues to have chest tube in place. Avoid IS use per CTS in effort to resolve air leak. Due to the current environment of [place] [id number], PPE was worn for the duration of all face to face encounters including but not limited to an N95 in accordance with CDC and hospital guidelines. Pain Severity: Moderate--> controlled on CARE MANAGER CNA Pain Frequency: intermittent Pain Location: chest--> surgical site Pain Radiation: nonradiating Pain Quality: aching, throbbing and tender Adverse effect to opioids: none Sedation score: 1: Awake and alert Timing: Intermittent Onset: : Post surgical. Aggravating Factors: Coughing Alleviating Factors: CARE MANAGER CNA Bowel status: LB 02/19 Social History Tobacco Use Smoking Status Former Smoker Years: 80.00 Start date: 1962 Quit date: 2002 Years since quittin.9 Smokeless Tobacco Never Used Social History Substance and Sexual Activity Alcohol Use Yes Alcohol/week: 3.0 standard drinks Types: 3 Cans of beer per week Frequency: 2-3 times a week Comment: 3 beers a week Social History Substance and Sexual Activity Drug Use Not Currently Pain Management: n/a The patient's medical history and physical assessment, medications, allergies, patient's current medical condition, imaging, and labs were reviewed as part of this consultation. [x] Patient's Medications have been reviewed. [x] Patient's OARRS report (PDMP) have been reviewed. ORS 20 01/24/2020 2 10/28/2019 Lorazepam 1 MG Tablet 90.00 30 Ma Eld 10/28/2019 2 10/28/2019 Lorazepam 1 MG Tablet 90.00 30 Ma Eld 09/04/2019 2 04/21/2019 Lorazepam 1 MG Tablet 90.00 30 Ma Eld 05/22/2019 2 04/21/2019 Lorazepam 1 MG Tablet 90.00 30 Ma Eld 04/21/2019 2 04/21/2019 Lorazepam 1 MG Tablet 90.00 30 Ma Eld 03/13/2019 2 12/07/2018 Lorazepam 1 MG Tablet 90.00 30 Objective Findings: Height: 6' (182.9 cm) Weight: 195 lb (88.5 kg) BMI (Calculated): 26.5 Vital signs: Blood pressure 126/63, pulse 80, temperature 97.7 F (36.5 C), temperature source Temporal, resp. rate 16, height 6' (1.829 m), weight 195 lb (88.5 kg), SpO2 94 %. Lab Results Component Value Date/Time HGB 10.2 (L) 02/24/2020 02:32 AM HCT 30.8 (L) 02/24/2020 02:32 AM PLT 231 02/24/2020 02:32 AM WBC 7.5 02/24/2020 02:32 AM NA 133 (L) 02/24/2020 02:32 AM K 4.1 02/24/2020 02:32 AM BUN 18 02/24/2020 02:32 AM CREATININE 0.68 02/24/2020 02:32 AM GLUCOSE 98 02/24/2020 02:32 AM Allergies: Isosorbide nitrate Past Medical History: Diagnosis Date Aneurysm of aorta (HCC) Bronchiectasis (HCC) CAD (coronary artery disease) Chronic hypoxemic respiratory failure (HCC) COPD (chronic obstructive pulmonary disease) (HCC) HLD (hyperlipidemia) HTN (hypertension) Influenza B Nocturnal hypoxia On home O2 2 Liters at bedtime Prostate CA (HCC) Past Surgical History: Procedure Laterality Date CORONARY ANGIOPLASTY WITH STENT PLACEMENT 2012 LAD, occluded FRANCIA and COLEMAN CORONARY ARTERY BYPASS GRAFT 2000 LUNG BIOPSY Left 2019 THORACOTOMY Left 02/20/2020 VATS TURP Family History Problem Relation Age of Onset Cancer Mother Cancer Sister Diabetes Father Heart Disease Father Diabetes Brother Patient Active Problem List Diagnosis Lung nodule Review of Systems Constitutional: Negative for chills and fever. HENT: Negative for trouble swallowing. Eyes: Negative for visual disturbance. Respiratory: Positive for shortness of breath (with movement). Cardiovascular: Positive for chest pain (2/2 surgical site). Gastrointestinal: Positive for nausea (occasional). Negative for abdominal pain and vomiting. Genitourinary: Negative for difficulty urinating. Musculoskeletal: Negative for arthralgias. Skin: Negative for wound. Neurological: Negative for dizziness and light-headedness. Psychiatric/Behavioral: Negative for agitation, confusion and hallucinations. The patient is not nervous/anxious. Physical Exam Vitals signs and nursing note reviewed. Constitutional: Appearance: Normal appearance. HENT: Head: Normocephalic and atraumatic. Cardiovascular: Rate and Rhythm: Normal rate. Pulmonary: Comments: CT x 2 to suction--> SS output Chest: Chest wall: Tenderness present. Neurological: Mental Status: He is alert and oriented to person, place, and time. Psychiatric: Behavior: Behavior normal. Behavior is cooperative. Pain Management Adjuvants: 0700 --> 0700 02/20/202002/20 Scheduled APAP 4000mg 3000mg 2000mg 3,000 mg PRN Dilaudid CARE MANAGER CNA 7.2mg 7.4mg (12h) 9.4mg 8.4 mg Lorazepam po 0 0.5mg 0 BLOCK: Exparel Block Injection date: 02/19 Medication : Bupivacaine liposome injectable suspension Location: Erector Spinae/Serratus Plane Side Effects: Denies nausea, headache, constipation, dysgeusia, pyrexia, hypoesthesia, muscle twitching, vomiting, pruritus, dizziness, hypertension, dyspepsia. Assessment: 1. Acute postsurgical chest pain 2. Opioid naive Pain Management Plan: Continue CARE MANAGER CNA today. CT x 2 remain with air leak. Avoid IS use per CTS. Heimlich valve, talc pleurodesis possible over the weekend per CTS. Hydromorphone CARE MANAGER CNA. D/c all other narcotics. CARE MANAGER CNA dose: 0.2 mg Lockout interval: 6 mintues Basal Rate: 0 mg/hr One hour limit: 2 mg Acetaminophen 1000 mg po TID ATC. No Ketorolac per CTS Erector Spinae/Serratus plane Exparel block 02/19 Lidocaine patches x 2. Cut and place as needed. Start date: 02/23 Order Sennakot-S 8.6/50mg, 1 tablet PO BID. Order Milk of Magnesia 400mg/5ml, administer 30mL by mouth daily PRN. ? Will follow. Plan discussed with patient who appears to understand and agrees. PAGING: The Acute Pain Service providers are available by pager. Please reference [employer] and/or [facility] Phonebook for Pain Management Provider PHYSICIAN OFFICE NURSE and direct all questions to the provider listed. * Rodrick Sullivan MD - 02/24/2020 9:54 AM EST Cardiothoracic Surgery Progress Note PATIENT NAME: Oswaldo Corley TODAY'S DATE: 02/24/2020 SUBJECTIVE: POD#4 Indwelling suazo placed yesterday for urinary retention. Resting comfortably in bed this am. Pain controlled with CARE MANAGER CNA. Intermittent nausea yesterday, no vomiting, fevers, chills. Tolerating diet. Passing flatus. L CT #1 output: [address] #2 output: 200 cc OBJECTIVE: VITALS: BP 126/63 Pulse 80 Temp 97.7 F (36.5 C) (Temporal) Resp 16 Ht 6' (1.829 m) Wt 195lb (88.5 kg) SpO2 94% BMI 26.45 kg/m BMI Classification: Overweight (BMI 25.0-29.9) INTAKE/OUTPUT: I/O last 3 completed shifts: In: 360 [P.O.:360] Out: 1050 [Urine:800; Chest Tube:250] No intake/output data recorded. CONSTITUTIONAL: NAD, awake and alert. RESPIRATORY: Nonlabored normal respiratory effort, no stridor, equal and bilateral chest rise. On NC. L CT x2 in place to suction with air leak present, slightly decreased from yesterday. Serosanguinous output CV: regular rate and rhythm ABDOMEN: Soft, non-distended, non-tender. EXTREMITIES: No edema or cyanosis WOUND: Left thoracotomy incision c/d/i Data: CBC: Recent Labs 02/22/20 0350 02/23/20 0051 02/24/20 0232 WBC 9.7 8.7 7.5 HGB 11.4* 10.4* 10.2* HCT 34.0* 31.0* 30.8* PLT 233 216 231 BMP: Recent Labs 02/22/20 0350 02/23/20 0051 02/24/20 0232 NA 133* 135 133* K 5.2* 4.6 4.1 CL 107 101 96* CO2 20* 29 30 BUN 30* 21* 18 CREATININE 0.80 0.78 0.68 GLUCOSE 141* 126* 98 Hepatic: No results for input(s): AST, ALT, ALB, BILITOT, ALKPHOS in the last 72 hours. CXR 02/23 Report Portable chest 02/24/2020: Clinical Information: Shortness of breath. Findings: A single AP portable view of the chest was obtained at 710 hours. Comparison was made to the prior study prior day. The left-sided chest tubes are unchanged. No pneumothorax is identified. There continues to be subcutaneous emphysema in the left lateral chest wall. There is basal atelectasis on the left. No pulmonary vascular congestion or consolidation is otherwise identified. Report Dictated on --- Final --- Dictated: 02/24/2020 8:24 am Dictating Physician: MD KAROL, PROMISE Signed Date and Time: 02/24/2020 8:25 am ASSESSMENT AND PLAN: Oswaldo Corley is a 79 y.o. male with left lower lobe lung nodule. He is s/p left VATS converted to left open thoracotomy, wedge resection of left lower lobe 02/19 -Continue left chest tubes to suction. Monitor output. -Daily CXR -Maintain on 4 L NC. Avoid incentive spirometer, coughing in an effort to resolve air leak. Will plan for instillation of talc through the chest tube tomorrow if continues to have air leak. -Cardiac diet as tolerated -Indwelling suazo placed by urology, appreciate recs. Plan for void trial on day of discharge. ContFlomax. -Follow up surgical pathology -Pain management consulted for CARE MANAGER CNA -PT/OT -bowel regimen -ASA, plavix restarted -DVT prophylaxis SCDs, lovenox -Continue H6 care Rodrick Sullivan MD, Pager #[phone] 02/24/2020 at 9:54 AM Associated attestation - Mario Wayne MD - 02/24/2020 12:13 PM EST I independently saw and evaluated the patient - including reviewing the labs, imaging studies, and available documentation. I agree with the findings and plan of care as documented by the resident/STRIP ROLLER/PSYCHOMETRIC EXAMINER/PA, unless otherwise noted. Please do not hesitate to contact me/us if you have any questions or concerns. Mario Wayne MD FACS * Yong Lipscomb, PT - 02/24/2020 9:25 AM EST Physical Therapy Facility/Department: [facility] Initial Assessment NAME: Oswaldo Corley : 1940 Date of Service: 02/24/2020 Discharge Recommendations: Home with assist PRN, Outpatient PT PT Equipment Recommendations Equipment Needed: (potential FWW in short term (TBD)) Assessment Body structures, Functions, Activity limitations: Decreased functional mobility ;Decreased strength;Increased pain;Decreased balance Assessment: Pt's performance was better than pt expected or even reports post facto. Bed mobility min of 1, sit to stand CGA. Amb in room approx 35', CGA--pt's wadsworth issue is impending sense of nausea.Pt admits he has no appetite and really hasn't eaten since Thursday. From a mobility perspective, anticipate progression to homegoing. Recommend outpatient PT and also outpatient orthotic consult for Lfoot. Prognosis: Good Decision Making: Medium Complexity PT Education: Goals;PT Role;Plan of Care Patient Education: handout for P&C ex given REQUIRES PT FOLLOW UP: Yes Patient Diagnosis(es): There were no encounter diagnoses. has a past medical history of Aneurysm of aorta (HCC), Bronchiectasis (HCC), CAD (coronary artery disease), Chronic hypoxemic respiratory failure (HCC), COPD (chronic obstructive pulmonary disease) (HCC), HLD (hyperlipidemia), HTN (hypertension), Influenza B, Nocturnal hypoxia, On home O2, and Prostate CA (HCC). has a past surgical history that includes Coronary artery bypass graft (1999); Coronary angioplastywith stent (2012); TURP; Lung biopsy (Left, 2019); and thoracotomy (Left, 02/20/2020). Restrictions Restrictions/Precautions Restrictions/Precautions: Fall Risk, General Precautions(needs to remain on continuous suction) Required Braces or Orthoses?: No DIAGNOSIS: L open thoracotomy, wedge resection Left lower lobe. Pt with 4L O2, CARE MANAGER CNA, non-rebreather, two chest tubes to continuous suction, Suazo Subjective Focused on nausea. Pt hesitant with mobility, but performed well. Pt notes he sat up yesterday. Hassome pain on L chest wall, but clearly less of a concern that his nausea. Orientation WFL Social/Functional History Lives with , one floor set up with one entry step. Pt indep although he admits his energy levelis not great. As recently as a few months ago, no issue mowing lawn. does all household ADLs. Pt admits he sits on the couch a lot. Pt can drive. 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 Pt notes he injured foot at age 14. Notes it bothers him more the older he gets. Otherwise ROM WFL (excessive inversion on L--30 deg). Pt reports he feels weaker ever since he's been on meds for his prostate. Hip extn isometrics fair+, ABD good-, knee extn 4/5 martita, DF 5/5 martita. UEROM WFL, including L scapula. Denies numbness/tingling LEs. No abnormal tone detected. Supine to sit min of 1. Sit to stand CGA. Used w/c walk behind, 35' in room, CGA (on continuous suction). Distance limited by impending nausea and pt reports feeling very warm with gait. Plan Plan Times per week: 5 Plan weeks: 2 Current Treatment Recommendations: Strengthening, ROM, Balance Training, Functional Mobility Training, Stair training, Gait Training, Endurance Training, Transfer Training Safety Devices Type of devices: Left in chair, Call light within reach AM-PAC Score AM-[facility] Inpatient Mobility Raw Score : 16 (02/24/20918) AM-PAC Inpatient T-Scale Score : 40.78 (02/24/20918) Mobility Inpatient CMS 0-100% Score: 54.16 (02/24/20918) Mobility Inpatient [facility] G-Code Modifier : CK (02/24/20918) Goals Short term goals Time Frame for Short term goals: 2 weeks Short term goal 1: bed mobility indep Short term goal 2: sit to stand indep Short term goal 3: Amb 250' or 5 minutes, RPE<14, (modif) indep Short term goal 4: Curb step supv Short term goal 5: Indep P&C ex. Patient Goals Patient goals : not be so nauseated Therapy Time Individual Concurrent Group Co-treatment Time In 0835 Time Out 0911 Minutes 36 Patient s Physical Therapy Plan of Care supervision is transferred to [facility] Re[facility] Department Physical Therapist. PT wore N95 mask, goggles, and gloves throughout entire session with patient. Yong Lipscomb PT * Darleen Platt RN - 02/23/2020 12:[address] Albright aware of CXR results will be up to see the patient. * Darleen Platt RN - 02/23/2020 11:58 AM EST 14FR Cauda inserted urology notifed * Darleen Platt RN - 02/23/2020 11:[address] Ortega gave order for cxr due to increased bubbling in the chambers and sob, also notified Dr Albright who is continuous improvement engineer * Darleen Platt RN - 02/23/2020 10:42 AM EST Urology notified of unable to insert catheter, instructed to use a smaller catheter 14 fr, urology would be over to see him as soon as they can. Patient continues with crepitus the left upper chest, increased bubbling in the water chambers, Dr Sullivan notified, waiting on urology cart for 14Fr. catheter. Was instructed to notify continuous improvement engineer resident. * Darleen Platt RN - 02/23/2020 10:07 AM EST Went to insert the suazo per order due to no void and 554 cc in bladder, ureteral opening met with resistance, unable to insert into the opening of the urethral, another nurse present and attempted with same outcome, gen surgery notified Dr Sullivan and urology paged. * Rodrick Sullivan MD - 02/23/2020 9:20 AM EST Cardiothoracic Surgery Progress Note PATIENT NAME: Oswaldo Corley TODAY'S DATE: 02/23/2020 SUBJECTIVE: POD#3 Required straight cath x1 overnight due to urinary retention. Resting comfortably in bed this am. Pain controlled with CARE MANAGER CNA. No nausea, vomiting, fevers, chills. Tolerating diet. Passing flatus. L CT #1 output: [address] #2 output: 130 cc (incorrectly charted as 1130 in EMR) OBJECTIVE: VITALS: BP 118/62 Pulse 81 Temp 99.1 F (37.3 C) (Temporal) Resp 18 Ht 6' (1.829 m) Wt 195lb (88.5 kg) SpO2 98% BMI 26.45 kg/m BMI Classification: Overweight (BMI 25.0-29.9) INTAKE/OUTPUT: I/O last 3 completed shifts: In: 307.4 [P.O.:300; I.V.:7.4] Out: 1954 [Urine:775; Chest Tube:1180] No intake/output data recorded. CONSTITUTIONAL: NAD, awake and alert. RESPIRATORY: Nonlabored normal respiratory effort, no stridor, equal and bilateral chest rise. On 4L NC. L CT x2 in place to suction with air leak present, slightly decreased from yesterday. Serosanguinous output CV: regular rate and rhythm ABDOMEN: Soft, non-distended, non-tender. EXTREMITIES: No edema or cyanosis WOUND: Left thoracotomy incision c/d/i Data: CBC: Recent Labs 02/21/20 0335 02/22/20 0350 02/23/20 0051 WBC 9.5 9.7 8.7 HGB 11.1* 11.4* 10.4* HCT 33.4* 34.0* 31.0* PLT 229 233 216 BMP: Recent Labs 02/21/20 0335 02/22/20 0350 02/23/20 0051 NA 134* 133* 135 K 5.0 5.2* 4.6 CL 104 107 101 CO2 22 20* 29 BUN 22* 30* 21* CREATININE 0.76 0.80 0.78 GLUCOSE 144* 141* 126* Hepatic: No results for input(s): AST, ALT, ALB, BILITOT, ALKPHOS in the last 72 hours. CXR 02/23/20 Conclusion(s): 1. Left basilar nodule with no change. 2. Regressing left basilar pneumothorax. 3. Left-sided subcutaneous emphysema with no significant change. 4. Stable position of thoracostomy tubes. Report Dictated on --- Final --- Dictated: 02/23/2020 7:17 am Dictating Physician: MD RAQUEL, Sana UREÑA Signed Date and Time: 02/23/2020 7:22 am ASSESSMENT AND PLAN: Oswaldo Corley is a 79 y.o. male with left lower lobe lung nodule. He is s/p left VATS converted to left open thoracotomy, wedge resection of left lower lobe 02/19 -Continue left chest tubes to suction. Monitor output. -Daily CXR -Maintain on 4 L NC. Avoid incentive spirometer, coughing in an effort to resolve air leak -Cardiac diet as tolerated -Indwelling suazo placement this am. Will consult urology for recommendations. History or urinary retention in the past. Flomax reordered -Follow up surgical pathology -Pain management consulted for CARE MANAGER CNA -PT/OT -bowel regimen -ASA, plavix restarted -DVT prophylaxis SCDs, lovenox -Continue H6 care Rodrick Sullivan MD, Pager #[phone] 02/23/2020 at 9:20 AM Associated attestation - Mario Wayne MD - 02/23/2020 10:20 AM EST I independently saw and evaluated the patient - including reviewing the labs, imaging studies, and available documentation. I agree with the findings and plan of care as documented by the resident/STRIP ROLLER/PSYCHOMETRIC EXAMINER/PA, unless otherwise noted. If the air leak decreases over the next few days, conversion to a Heimlich Valve may be possible aslong as the lung remains fully inflated on water seal. I may consider a talc pleuradesis over the weekend if the airleak remains substantial. Please do not hesitate to contact me/us if you have any questions or concerns. Mario Wayne MD FACS * Mariann Kothari RN - 02/22/2020 9:11 PM EST Patient complained of not being able to void since he had to have a straight cath in the rn first assistant. Bladder scan volume showed >700. Dr. Caballero paged. Order for a one time straight cath received. 675cc clear yellow urine returned. Post straight cath bladder scan showed 0cc remaining. Dr. Caballero also notified that patient was positive for crepitus on left chest going down to chest tube incision site. No new orders placed. * Fiorella Lanza APRN - LEGAL STENOGRAPHER - 02/22/2020 9:05 AM EST PAGING: The Acute Pain Service providers are available by pager. Please reference [employer] and/or [facility] Phonebook for Pain Management Provider PHYSICIAN OFFICE NURSE and direct all questions to the provider listed. 02/22/2020 Referring Physician: Oliverio Herrmann MD Subjective: We have been asked to see this 79 y.o. male for postoperative pain management s/p surgery 02/20/2020: Procedure: 1. Flexible bronchoscopy 2. Left Video-assisted thoracoscopy converted to left open thoracotomy 3. Wedge resection of left lower lobe mass PMH reviewed below, significant for: nocturnal hypoxia, home O2, chronic hypoxemic respiratory failure NAEON, no pages. Pt just awoken from sleep. Pt feels well, pain controlled with CARE MANAGER CNA. Pt talkative and cooperative throughout exam, happy with current pain regimen. Pt educated on CARE MANAGER CNA use, will continue today. CT x 2 remain to suction. Avoid IS use per CTS in effort to resolve air leak. Due to the current environment of [place] [id number], PPE was worn for the duration of all face to face encounters including but not limited to an N95 in accordance with CDC and hospital guidelines. Pain Severity: Moderate--> controlled on CARE MANAGER CNA Pain Frequency: intermittent Pain Location: chest--> surgical site Pain Radiation: nonradiating Pain Quality: aching, throbbing and tender Adverse effect to opioids: none Sedation score: 1: Awake and alert Timing: Intermittent Onset: : Post surgical. Aggravating Factors: Coughing Alleviating Factors: CARE MANAGER CNA Bowel status: LBM 02/19 Social History Tobacco Use Smoking Status Former Smoker Years: 80.00 Start date: 1962 Quit date: 2002 Years since quittin.9 Smokeless Tobacco Never Used Social History Substance and Sexual Activity Alcohol Use Yes Alcohol/week: 3.0 standard drinks Types: 3 Cans of beer per week Frequency: 2-3 times a week Comment: 3 beers a week Social History Substance and Sexual Activity Drug Use Not Currently Pain Management: n/a The patient's medical history and physical assessment, medications, allergies, patient's current medical condition, imaging, and labs were reviewed as part of this consultation. [x] Patient's Medications have been reviewed. [x] Patient's OARRS report (PDMP) have been reviewed. ORS 20 01/24/2020 2 10/28/2019 Lorazepam 1 MG Tablet 90.00 30 Ma Eld 10/28/2019 2 10/28/2019 Lorazepam 1 MG Tablet 90.00 30 Ma Eld 09/04/2019 2 04/21/2019 Lorazepam 1 MG Tablet 90.00 30 Ma Eld 05/22/2019 2 04/21/2019 Lorazepam 1 MG Tablet 90.00 30 Ma Eld 04/21/2019 2 04/21/2019 Lorazepam 1 MG Tablet 90.00 30 Ma Eld 03/13/2019 2 12/07/2018 Lorazepam 1 MG Tablet 90.00 30 Objective Findings: Height: 6' (182.9 cm) Weight: 195 lb (88.5 kg) BMI (Calculated): 26.5 Vital signs: Blood pressure 112/68, pulse 79, temperature 98.2 F (36.8 C), temperature source Temporal, resp. rate 25, height 6' (1.829 m), weight 195 lb (88.5 kg), SpO2 100 %. Lab Results Component Value Date/Time HGB 11.4 (L) 02/22/2020 03:50 AM HCT 34.0 (L) 02/22/2020 03:50 AM PLT 233 02/22/2020 03:50 AM WBC 9.7 02/22/2020 03:50 AM NA 133 (L) 02/22/2020 03:50 AM K 5.2 (H) 02/22/2020 03:50 AM BUN 30 (H) 02/22/2020 03:50 AM CREATININE 0.80 02/22/2020 03:50 AM GLUCOSE 141 (H) 02/22/2020 03:50 AM Allergies: Isosorbide nitrate Past Medical History: Diagnosis Date Aneurysm of aorta (HCC) Bronchiectasis (HCC) CAD (coronary artery disease) Chronic hypoxemic respiratory failure (HCC) COPD (chronic obstructive pulmonary disease) (HCC) HLD (hyperlipidemia) HTN (hypertension) Influenza B Nocturnal hypoxia On home O2 2 Liters at bedtime Prostate CA (HCC) Past Surgical History: Procedure Laterality Date CORONARY ANGIOPLASTY WITH STENT PLACEMENT 2012 LAD, occluded FRANCIA and COLEMAN CORONARY ARTERY BYPASS GRAFT 1999 LUNG BIOPSY Left 2019 THORACOTOMY Left 02/20/2020 VATS TURP Family History Problem Relation Age of Onset Cancer Mother Cancer Sister Diabetes Father Heart Disease Father Diabetes Brother Patient Active Problem List Diagnosis Lung nodule Review of Systems Constitutional: Negative for chills and fever. HENT: Negative for trouble swallowing. Eyes: Negative for visual disturbance. Respiratory: Negative for shortness of breath. Cardiovascular: Positive for chest pain (2/2 surgical site). Gastrointestinal: Positive for nausea (occasional). Negative for abdominal pain and vomiting. Genitourinary: Negative for difficulty urinating. Musculoskeletal: Negative for arthralgias. Skin: Negative for wound. Neurological: Negative for dizziness and light-headedness. Psychiatric/Behavioral: Negative for agitation, confusion and hallucinations. The patient is not nervous/anxious. Physical Exam Vitals signs and nursing note reviewed. Cardiovascular: Rate and Rhythm: Normal rate. Pulmonary: Comments: CT x 2 to suction--> SS output Chest: Chest wall: Tenderness present. Neurological: Mental Status: He is alert and oriented to person, place, and time. Psychiatric: Behavior: Behavior normal. Behavior is cooperative. Pain Management Adjuvants: 0700 --> 0700 02/20/202002/20 Scheduled APAP 4000mg 3000mg PRN Dilaudid CARE MANAGER CNA 7.2mg 7.4mg (12h) Lorazepam po 0 0.5mg BLOCK: Exparel Block Injection date: 02/19 Medication : Bupivacaine liposome injectable suspension Location: Erector Spinae/Serratus Plane Side Effects: Denies nausea, headache, constipation, dysgeusia, pyrexia, hypoesthesia, muscle twitching, vomiting, pruritus, dizziness, hypertension, dyspepsia. Assessment: 1. Acute postsurgical chest pain 2. Opioid naive Pain Management Plan: Continue CARE MANAGER CNA today. CT x 2 remain with air leak. Avoid IS use per CTS Hydromorphone CARE MANAGER CNA. D/c all other narcotics. CARE MANAGER CNA dose: 0.2 mg Lockout interval: 6 mintues Basal Rate: 0 mg/hr One hour limit: 2 mg Acetaminophen 1000 mg po TID ATC. No Ketorolac per CTS Erector Spinae/Serratus plane Exparel block 02/19 Lidocaine patches x 2. Cut and place as needed. Start date: 02/23 Order Sennakot-S 8.6/50mg, 1 tablet PO BID. Order Milk of Magnesia 400mg/5ml, administer 30mL by mouth daily PRN. ? Will follow. Plan discussed with patient who appears to understand and agrees. PAGING: The Acute Pain Service providers are available by pager. Please reference [facility] and/or [facility] Phonebook for Pain Management Provider PHYSICIAN OFFICE NURSE and direct all questions to the provider listed. * Shanique Horn MD - 02/22/2020 8:27 AM EST Cardiothoracic Surgery Progress Note PATIENT NAME: Oswaldo Corley TODAY'S DATE: 02/22/2020 SUBJECTIVE: POD#2 Required straight cath x1 overnight due to urinary retention. Resting comfortably in bed this am. Pain controlled with CARE MANAGER CNA. No nausea, vomiting, fevers, chills. L CT #1 output: [address] #2 output: 160 cc OBJECTIVE: VITALS: BP 112/68 Pulse 79 Temp 98.2 F (36.8 C) (Temporal) Resp 25 Ht 6' (1.829 m) Wt 195lb (88.5 kg) SpO2 100% BMI 26.45 kg/m BMI Classification: Overweight (BMI 25.0-29.9) INTAKE/OUTPUT: I/O last 3 completed shifts: In: 1510 [P.O.:1510] Out: 2290 [Urine:1920; Chest Tube:370] No intake/output data recorded. CONSTITUTIONAL: NAD, awake and alert. RESPIRATORY: Nonlabored normal respiratory effort, no stridor, equal and bilateral chest rise. On 4L NC. L CT x2 in place to suction with large air leak present. Serosanguinous output CV: regular rate and rhythm ABDOMEN: Soft, non-distended, non-tender. Bowel sounds present. EXTREMITIES: No edema or cyanosis WOUND: Left thoracotomy incision c/d/i Data: CBC: Recent Labs 02/21/20 0335 02/22/20 0350 WBC 9.5 9.7 HGB 11.1* 11.4* HCT 33.4* 34.0* PLT 229 233 BMP: Recent Labs 02/21/20 0335 02/22/20 0350 NA 134* 133* K 5.0 5.2* CL 104 107 CO2 22 20* BUN 22* 30* CREATININE 0.76 0.80 GLUCOSE 144* 141* Hepatic: No results for input(s): AST, ALT, ALB, BILITOT, ALKPHOS in the last 72 hours. ASSESSMENT AND PLAN: Oswaldo Corley is a 79 y.o. male with left lower lobe lung nodule. He is s/p left VATS converted to left open thoracotomy, wedge resection of left lower lobe 02/19 -Continue left chest tubes to suction. Monitor output. -Daily CXR -Maintain on 4 L NC. Avoid incentive spirometer, coughing in an effort to resolve air leak -Cardiac diet as tolerated -Monitor for urinary retention, straight cath as needed. Flomax reordered -Follow up surgical pathology -Pain management consulted for CARE MANAGER CNA -PT/OT -Holding plavix, aspirin -DVT prophylaxis SCDs, lovenox -Transfer to [address] [place] [address] if beds available Rodrick Sullivan MD, Pager #[phone] 02/22/2020 at 8:27 AM I discussed the patients current condition, treatment, and future plans with Christina, who is the patients spouse. All questions answered and understanding was displayed. Shanique Horn MD Cardiothoracic Surgery * Naty Castillo RD, LD - 02/21/2020 11:54 AM EST Comprehensive Nutrition Assessment Type and Reason for Visit: Initial, RD Nutrition Re-Screen/LOS Nutrition Recommendations/Plan: 1. Continue Cardiac diet. Monitor po intake for need to liberalize diet 2. Per MNT protocol, will order Ensure HP BID to support post-surgical recovery and promote po intake (160kcal, 16g protein, 8oz each) 3. RD will monitor and follow up weekly Nutrition Assessment: Pt with PMH including AAA, CAD s/p CABG, COPD, HLD, HTN recent CTA for AAA with incidental finding of LLL nodule for which a biospy was performed which was complcated by pneumothorax and left pleural effusion (biopsy benign). Pt admits for planned surgery and underwent VATS and LLL lung resection 02/19. He is laying in bed, alert. Reporst decreased appetite and indicates he d oes not like the hospital food. He reports eating one egg, 1/2 muffin, and some of his fruit cup this morning, has not ordered lunch yet. Prior to admission he reports his appetite was fine and he was eating well. He reports UBW of 193#- 198#. Pt follows a general diet, is currently ordered a Cardiac diet. He denies questions for RD at this time. Pt agrees to ONS Malnutrition Assessment: Malnutrition Status: At risk for malnutrition (Comment) Context: Acute Illness Findings of the 6 clinical characteristics of malnutrition: Energy Intake: Mild decrease in energy intake (Comment) Weight Loss: No significant weight loss Estimated Daily Nutrient Needs: Energy (kcal): 0233-0415; Weight Used for Energy Requirements: [place] Protein (g): 97-113; Weight Used for Protein Requirements: [place](1.2-1.5g/kg) Fluid (ml/day): Per MD; Method Used for Fluid Requirements: (N/A) Nutrition Related Findings: +I/O. No edema. Active bowel sounds. Polo not yet assessed. Labs and meds reviewed BMP: Recent Labs 02/21/20 0335 NA 134* K 5.0 CL 104 CO2 22 BUN 22* CREATININE 0.76 GLUCOSE 144* CALCIUM 8.2* Wounds: Surgical Incision Current Nutrition Therapies: DIET CARDIAC; Anthropometric Measures: Height: 6' (182.9 cm) Current Body Weight: 195 lb (88.5 kg) Usual Body Weight: 198 lb (89.8 kg)(02/15) [place] Body Weight: 178 lbs; % [place] Body Weight 109.6 % BMI: 26.4 BMI Categories: Overweight (BMI 25.0-29.9) Nutrition Diagnosis: Increased nutrient needs related to increase demand for energy/nutrients as evidenced by wounds(surgical) Nutrition Interventions: Food and/or Nutrient Delivery: Continue Current Diet, Start Oral Nutrition Supplement Nutrition Education/Counseling: No recommendation at this time Coordination of Nutrition Care: Continue to monitor while inpatient Goals: Pt will consume >50% at meals and ONS Nutrition Monitoring and Evaluation: Food/Nutrient Intake Outcomes: Diet Advancement/Tolerance, Food and Nutrient Intake, Supplement Intake Physical Signs/Symptoms Outcomes: Biochemical Data, Skin, Weight, Nutrition Focused Physical Findings Discharge Planning: Continue Oral Nutrition Supplement Contact: pager [phone] * Rodrick Sullivan MD - 02/21/2020 8:50 AM EST Cardiothoracic Surgery Progress Note PATIENT NAME: Oswaldo Corley TODAY'S DATE: 02/21/2020 SUBJECTIVE: POD#1 No acute issues overnight. Resting comfortably in bed. Says he was having trouble initiating void but was eventually able to do so. Has a history of urinary retention secondary to BPH. Pain controlled. No nausea, vomiting, fevers, chills. L CT #1 output: [address] #2 output: 158 cc OBJECTIVE: VITALS: BP 132/81 Pulse 69 Temp 98.4 F (36.9 C) (Temporal) Resp 14 Ht 6' (1.829 m) Wt 195lb (88.5 kg) SpO2 100% BMI 26.45 kg/m BMI Classification: Overweight (BMI 25.0-29.9) INTAKE/OUTPUT: I/O last 3 completed shifts: In: 1265.3 [I.V.:1265.3] Out: 888 [Urine:300; Blood:200; Chest Tube:388] I/O this shift: In: 470 [P.O.:470] Out: 100 [Urine:100] CONSTITUTIONAL: NAD, awake and alert. RESPIRATORY: Nonlabored normal respiratory effort, no stridor, equal and bilateral chest rise. On 4L NC. L CT x2 in place to suction with large air leak present. Serosanguinous output CV: regular rate and rhythm ABDOMEN: Soft, non-distended, non-tender. Bowel sounds present. EXTREMITIES: No edema or cyanosis WOUND: Left thoracotomy incision c/d/i Data: CBC: Recent Labs 02/21/20 0335 WBC 9.5 HGB 11.1* HCT 33.4* PLT 229 BMP: Recent Labs 02/21/20 0335 NA 134* K 5.0 CL 104 CO2 22 BUN 22* CREATININE 0.76 GLUCOSE 144* Hepatic: No results for input(s): AST, ALT, ALB, BILITOT, ALKPHOS in the last 72 hours. ASSESSMENT AND PLAN: Oswaldo Corley is a 79 y.o. male with left lower lobe lung nodule. He is s/p left VATS converted to left open thoracotomy, wedge resection of left lower lobe 02/19 -Continue left chest tubes to suction. Monitor output. -Daily CXR -Maintain on 4 L NC. Avoid incentive spirometer, coughing in an effort to resolve air leak -Cardiac diet as tolerated -Monitor for urinary retention, straight cath as needed. Flomax reordered -Follow up surgical pathology -Pain management consulted for CARE MANAGER CNA -PT/OT -Holding plavix, aspirin -DVT prophylaxis SCDs, lovenox -Continue ICU care Rodrick Sullivan MD, Pager #[phone] 02/21/2020 at 11:05 AM * Renea Page - 02/20/2020 4:21 PM EST Belongings taken to pt admit room T219 Lorie Benedict MA * Scar Smith RN - 02/20/2020 2:32 PM EST CXR done * Scar Smith RN - 02/20/2020 2:04 PM EST Christina updated in recovery over phone, given room assignment and pt is stable but being closelymonitored. Nate SOTO notified of chest tube air leaks, states they are aware. documented in this encounter* Malu Meza RCP - 04/07/2020 1:09 PM EST [facility] Respiratory Care Department Progress Note SpO2 at rest on RA = 94 HR at rest = 89 SpO2 with ambulation on RA = 90 Peak HR = 101 Distance Walked = hallway Recovery SpO2 with ambulation = 93 Recovery HR = 100 Recovery SpO2 with lpm with ambulation (if needed) = na Qualify for home O2 Y/N = No Patient mobile at home Y/N = Yes * Dano Wells MD - 04/07/2020 12:01 PM EST [facility] [place], Pulmonary Critical Care and Sleep Medicine Patient - Oswaldo Corley, Age - 79 y.o. - 1940 Room Number - [id number] Consulting - Dave Bazan,* Primary Care Physician - Mei Cummins Date of Admission - 04/05/2020 6:37 PM Hospital Day - 1 Subjective/Events Past 24 hours/ROS Feeling much better. Went for a walk around the halls this morning and got a little winded, but says that's normal for him. Feels well enough to go home. Objective Vitals height is 5' 11 (1.803 m) and weight is 179 lb 4.8 oz (81.3 kg). His temporal temperature is 97.9 F (36.6 C). His blood pressure is 116/64 and his pulse is 92. His respiration is 18 and oxygen saturation is 93%. O2 Flow Rate (L/min): 3 L/min I/O Intake/Output Summary (Last 24 hours) at 04/07/2020 1201 Last data filed at 04/07/2020 0933 Gross per 24 hour Intake 1200 ml Output Net 1200 ml Patient Vitals for the past 96 hrs (Last 3 readings): Weight 04/07/20 0259 179 lb 4.8 oz (81.3 kg) 04/06/20 0445 183 lb 8 oz (83.2 kg) 04/05/20 1857 180 lb (81.6 kg) Exam General Appearance Awake, alert, oriented, in no acute distress HEENT - normocephalic, atraumatic, sclarea is anicteric, conjunctiva is pink, nasal mucosa is normal, no congestion, external ears are intact. Neck - Supple, trachea midline Lymph nodes- no cervical, clavicular, or posterior auricular lymphadenopathy Lungs Normal effort, cta Cardiovascular - Heart sounds are normal. Regular rate and rhythm Abdomen - Soft, nontender, nondistended Neurologic - Awake, alert, follows commands. There are no focal motor deficits grossly Skin - No bruising or bleeding, good turgor, normal warmth Extremities - No clubbing, cyanosis, edema Peripheral pulses- present bilaterally and symmetric Psychiatric: appropriate, oriented to person, place and time/date Meds enoxaparin 40 mg Subcutaneous Daily sodium chloride flush 10 mL Intravenous 2 times per day guaiFENesin 600 mg Oral BID aspirin 81 mg Oral Daily atorvastatin 20 mg Oral Nightly clopidogrel 75 mg Oral Daily lisinopril 5 mg Oral Daily metoprolol tartrate 25 mg Oral BID polyethylene glycol 17 g Oral Daily tamsulosin 0.4 mg Oral Daily mometasone-formoterol 2 puff Inhalation BID tiotropium 18 mcg Inhalation Daily methylPREDNISolone 40 mg Intravenous Q8H ipratropium-albuterol 1 ampule Inhalation TID sodium chloride flush, promethazine OR ondansetron, polyethylene glycol, acetaminophen OR acetaminophen, benzonatate, LORazepam, ibuprofen Labs CBC Recent Labs 04/07/20 0300 WBC 4.7 HGB 12.5* HCT 38.9* MCV 87.5 PLT 224 BMP: Recent Labs 04/07/20 0300 NA 141 K 4.7 CL 110* CO2 23 BUN 16 CREATININE 0.65 GLUCOSE 142* Cultures None Radiology CXR Reviewed (See actual reports for details) Active Hospital Problem List Active Hospital Problems Diagnosis Date Noted Shortness of breath [R06.02] 04/06/2020 Assessment and Plan 1 acute on chronic hypoxic respiratory failure 2 AE COPD, improved 3 underlying gold stage 3-4 COPD by PFTs 2017 4 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 Follow up with Dr Calvillo (supervisory aide) in [place] Case discussed with patient. Questions and concerns addressed. * Stalin Parsons MD - 04/07/2020 7:50 AM EST Department of Cardiothoracic Surgery - Progress Note PATIENT NAME: Oswaldo Corley : 1940 ATTENDING PHYSICIAN: Inderpartap S Phangureh,* ADMIT DATE: 04/05/2020 TODAY'S DATE: 04/07/2020 SUBJECTIVE Doing well, pain resolved. Off O2 completely. Denies complaints. OBJECTIVE VITALS: BP 132/73 Pulse 88 Temp 97.7 F (36.5 C) (Temporal) Resp 18 Ht 5' 11 (1.803 m) Wt179 lb 4.8 oz (81.3 kg) SpO2 94% BMI 25.01 kg/m INTAKE/OUTPUT: I/O last 3 completed shifts: In: 1200 [P.O.:1200] Out: - No intake/output data recorded. Physical Exam Constitutional: Appearance: Normal appearance. HENT: Head: Normocephalic and atraumatic. Mouth/Throat: Mouth: Mucous membranes are dry. Pharynx: Oropharynx is clear. Eyes: Extraocular Movements: Extraocular movements intact. Pupils: Pupils are equal, round, and reactive to light. Neck: Musculoskeletal: Normal range of motion and neck supple. Cardiovascular: Rate and Rhythm: Normal rate and regular rhythm. Pulmonary: Effort: Pulmonary effort is normal. No respiratory distress. Breath sounds: No wheezing. Chest: Chest wall: No tenderness. Abdominal: General: Abdomen is flat. There is no distension. Tenderness: There is no abdominal tenderness. Musculoskeletal: Normal range of motion. General: No swelling or tenderness. Skin: General: Skin is warm and dry. Coloration: Skin is not pale. Neurological: General: No focal deficit present. Mental Status: He is alert and oriented to person, place, and time. Psychiatric: Mood and Affect: Mood normal. Behavior: Behavior normal. Data Recent Labs 04/06/20 0453 04/07/20 0300 WBC 4.7 4.7 HGB 12.8* 12.5* HCT 39.6* 38.9* PLT 211 224 Recent Labs 04/06/20 0453 04/07/20 0300 NA 138 141 K 4.1 4.7 CL 108* 110* CO2 25 23 BUN 20 16 CREATININE 0.78 0.65 GLUCOSE 101* 142* No results for input(s): AST, ALT, ALB, BILITOT, ALKPHOS in the last 72 hours. Current Inpatient Medications Current Facility-Administered Medications: sodium chloride flush 0.9 % injection 10 mL, 10 mL, Intravenous, 2 times per day sodium chloride flush 0.9 % injection 10 mL, 10 mL, Intravenous, PRN promethazine (PHENERGAN) tablet 12.5 mg, 12.5 mg, Oral, Q6H PRN OR ondansetron (ZOFRAN) injection 4 mg, 4 mg, Intravenous, Q6H PRN polyethylene glycol (GLYCOLAX) packet 17 g, 17 g, Oral, Daily PRN acetaminophen (TYLENOL) tablet 650 mg, 650 mg, Oral, Q6H PRN OR acetaminophen (TYLENOL) suppository 650 mg, 650 mg, Rectal, Q6H PRN benzonatate (TESSALON) capsule 100 mg, 100 mg, Oral, TID PRN guaiFENesin (MUCINEX) extended release tablet 600 mg, 600 mg, Oral, BID aspirin EC tablet 81 mg, 81 mg, Oral, Daily atorvastatin (LIPITOR) tablet 20 mg, 20 mg, Oral, Nightly clopidogrel (PLAVIX) tablet 75 mg, 75 mg, Oral, Daily lisinopril (PRINIVIL;ZESTRIL) tablet 5 mg, 5 mg, Oral, Daily LORazepam (ATIVAN) tablet 0.5 mg, 0.5 mg, Oral, TID PRN metoprolol tartrate (LOPRESSOR) tablet 25 mg, 25 mg, Oral, BID polyethylene glycol (GLYCOLAX) packet 17 g, 17 g, Oral, Daily tamsulosin (FLOMAX) capsule 0.4 mg, 0.4 mg, Oral, Daily mometasone-formoterol (DULERA) 200-5 MCG/ACT inhaler 2 puff, 2 puff, Inhalation, BID AND MDI Treatment, , , BID tiotropium (SPIRIVA) inhalation capsule 18 mcg, 18 mcg, Inhalation, Daily methylPREDNISolone sodium (SOLU-MEDROL) injection 40 mg, 40 mg, Intravenous, Q8H ipratropium-albuterol (DUONEB) nebulizer solution 1 ampule, 1 ampule, Inhalation, TID ibuprofen (ADVIL;MOTRIN) tablet 400 mg, 400 mg, Oral, Q6H PRN ASSESSMENT AND PLAN Active Problems: Shortness of breath Resolved Problems: * No resolved hospital problems. * 79 y.o. 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 -pain and dyspnea resolved with medical therapy -suspect L lung findings are chronic - no plans for intervention from CT surgery standpoint - Please call with questions, will sign off Stalin Parsons MD PGYIII Associated attestation - Mario Wayne MD - 04/07/2020 10:27 AM EST I independently saw and evaluated the patient - including reviewing the labs, imaging studies, and available documentation. I agree with the findings and plan of care as documented by the resident/STRIP ROLLER/PSYCHOMETRIC EXAMINER/PA, unless otherwise noted. No surgery required. Please do not hesitate to contact me/us if you have any questions or concerns. Mario Wayne MD FACS * ROSALIE YOON - 04/06/2020 1:52 PM EST Patient Evaluation Form The patient is currently receiving Duoneb Q4 Points 0 1 2 3 4 Points Totals Pulmonary Status (-/+) History Smoking history < 20 pack years Smoking history > 20 pack years Pulmonary Disorder (acute or chronic) Severe or Chronic with Exacerbation 1 Surgical Status No Surgery Trach PEG General Surgery Lower Abdominal Thoracic or Upper Abdominal Thoracic with Pulmonary Disorder 0 Chest X-ray Clear None Ordered Chronic Changes CXR results Pending Infiltrates, atelectasis, pleural effusion, or edema Infiltrates in more than one lobe Infiltrate + Atelectasis, &/or pleural effusion 0 Respiratory Pattern Regular, RR = 12-20 Increased, RR = 21-25 [place], irregular, or RR = 26-30 Decreased FEV1 or RR = 31-35 Severe SOB, used of of accessory muscles, or RR = > 35 0 Mental Status Alert, oriented, cooperative Confused, but follows commands Lethargic or un-able to follow commands Obtunded Comatose 0 Breath Sounds Clear to auscultation Decreased unilaterally or in bases only Decreased bilaterally Crackles or intermittent wheezes Wheezes 2 Cough Strong, spontaneous, & nonproductive Strong, spontaneous, & productive Weak, nonproductive Weak, productive or with wheezes No spontaneous cough or may require suctioning 0 Level of Activity Ambulatory Ambulatory with Assist Non-ambulatroy Paraplegic Quadriplegic 0 Triage 1 > 20 pts Triage 2 16-20 pts Triage 3 11- 15 pts Triage 4 6 - 10 pts Triage 5 0 - 5 pts TOTAL POINTS = 3 Triage Score = 5 Changing Therapy to Duoneb TID documented in this encounter Hospital Course * Caesar Rutherford MD - 04/07/2020 1:00 PM EST Discharge Summary Oswaldo Corley : 1940 ADMIT DATE: 04/05/2020 DISCHARGE DATE: 04/07/2020 PRIMARY CARE PHYSICIAN: Mei Cummins VISIT STATUS: Admission CODE STATUS: Full Code DISCHARGE DIAGNOSES: Active Problems: Shortness of breath Resolved Problems: * No resolved hospital problems. 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 male with past medical history -lung nodule, aortic aneurysm, chronic obstructive pulmonary disease, coronaryartery disease, on nocturnal oxygen, presented to the emergency room from [facility] for shortness of breath. Patient underwent flexible bronchoscopy, thoracoscopy converted to left open thoracotomy and wedge resection of left lower lobe 02/19. Postoperative complicated by a persistent air leak., Instillation of talc 02/24 discharged on 03/03/20. pt reports to having short of breath for thelast 3 days, also pain in the left side of the chest related patient had the surgery. Found to be tachycardic in the emergency room troponins less than 0.01, room air oxygen saturations were 96% CT chest revealed concern for pneumothorax versus trapped lung. Was seen by cardiothoracic surgery consult recommended no surgical intervention admitted to the medicine service pertinent labs troponin less than 0.01. Patient placed on oxygen, nebulization treatments, IV steroids. Seen by and followed by cardiothoracic surgery, recommended no surgical intervention. Seen by pulmonary consult. Patient weaned off oxygen. Uses oxygen at home in the night. Patient feeling better. No shortness of breath. Pain in the chest improved with anti-inflammatory. Patient cleared by pulmonary and cardiothoracic surgery for discharge home. Patient is independently ambulating without any difficulty. Recheck home oxygen eval. Discharge home today. Vital signs reviewed stable lungs diminished breath sounds on the left side heart S1-S2 normal abdomen soft nontender bowel sounds present no leg edema bilaterally discharge home today follow-up as recommended SIGNIFICANT DIAGNOSTIC STUDIES: CT chest CONSULTANTS: CTS, pulmonary DISCHARGE MEDICATIONS: Oswaldo Corley Home Medication Instructions SHEELA:[id number] Printed on:04/07/20 1300 Medication Information albuterol sulfate HFA 108 (90 Base) MCG/ACT inhaler aspirin 81 MG EC tablet Take 81 mg by mouth daily atorvastatin (LIPITOR) 20 MG tablet Take 20 mg by mouth daily benzonatate (TESSALON) 100 MG capsule Take 1 capsule by mouth 3 times daily as needed for Cough clopidogrel (PLAVIX) 75 MG tablet Take 75 mg by mouth daily Last dose on February 01 DULERA 200-5 MCG/ACT inhaler Inhale 200 mcg into the lungs guaiFENesin 400 MG tablet Take 400 mg by mouth 2 times daily as needed lisinopril (PRINIVIL;ZESTRIL) 5 MG tablet TAKE 1 TABLET BY MOUTH EVERY DAY LORazepam (ATIVAN) 1 MG tablet 3 times daily as needed. metoprolol tartrate (LOPRESSOR) 50 MG tablet Take 25 mg by mouth 2 times daily Naproxen Sodium (ALEVE PO) Take by mouth ondansetron (ZOFRAN) 4 MG tablet Take 1 tablet by mouth 2 times daily as needed for Nausea or Vomiting polyethylene glycol (MIRALAX) 17 g packet Take 17 g by mouth daily In morning predniSONE (DELTASONE) 10 MG tablet Prednisone take 40 mg po daily for 1days then take 30 mg p.o. daily for 2 days Then take 20 mg po daily for 2 days Then take 10 mg po daily for 2 days SPIRIVA RESPIMAT 2.5 MCG/ACT AERS inhaler INAHLE 2 INHALATION EVERY 24 HOURS ADMINISTER AT APPROXIMATELY THE SAME TIME(S) EACH DAY tamsulosin (FLOMAX) 0.4 MG capsule Take 0.4 mg by mouth daily DIET: DIET GENERAL; ACTIVITY: No restriction. up with assist COMPLEXITY OF FOLLOW UP: [] Moderate Complexity: follow up within 7-14 calendar days (58287) [] Severe Complexity: follow up within 7 calendar days (44286) FOLLOW UP TESTING, PENDING RESULTS OR REFERRALS AT TRANSITIONAL CARE VISIT: [] Yes [] No PENDING STUDIES: No DISPOSITION: Home FACILITY/HOME CARE AGENCY NAME: Follow up with Mei Cummins [address] [facility] [id number] Schedule an appointment as soon as possible for a visit Dano Wells MD [address] [place] [address] [phone] on INSTRUCTIONS TO MA/SW: Please call patient on day after discharge (must document patient contacted within 2 business days of discharge). FOLLOW UP QUESTIONS FOR MA/SW: 1. Did you get medications filled and taking them as instructed from discharge? 2. Are you following your discharge instructions from your hospital stay? 3. Please confirm patient is scheduled for a follow up appointment within the above time frame. DISCHARGE TIME: > 30 minutes SIGNED: CAESAR RUTHERFORD MD 04/07/2020, 1:00 PM documented in this encounter Chief Complaint and Reason for Visit Chief Complaint 6 M FU PSA Reason for Visit Squamous cell carcin casimiro of left lung Stage 3 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 Tobacco dependence in remission Chief Complaint PSA sob Chief Complaint PSA sob WOUND CHECK Chief Complaint WOUND CHECK 6 M FU Reason for Visit Squamous cell carcin casimiro of left lung Chronic hypoxemic respiratory failure Stage 3 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 Tobacco dependence in remission Chief Complaint 6 M FU CHEST PAIN Reason for Visit Squamous cell carcin casimiro of left lung Chronic hypoxemic respiratory failure Stage 3 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 Tobacco dependence in remission Chief Complaint CHEST PAIN LUNG Chief Complaint LUNG PSA PE, LUNG CANCER Reason for Visit Acidosis, lactic History of coronary artery disease Major hemoptysis Pulmonary cavitary lesion Pulmonary embolus Pulmonary neoplasm Sinus tachycardia by electrocardiogram Benign essential HTN COPD with acute exacerbation Chief Complaint LUNG PSA PE, LUNG CANCER PE, LUNG CANCER ACUTE PE, KNOWN LUNG MALIGNANCY Reason for Visit Acidosis, lactic History of coronary artery disease Major hemoptysis Pulmonary cavitary lesion Pulmonary embolus Pulmonary neoplasm Sinus tachycardia by electrocardiogram Benign essential HTN COPD with acute exacerbation Chief Complaint LUNG PSA PE, LUNG CANCER PE, LUNG CANCER ACUTE PE, KNOWN LUNG MALIGNANCY ACUTE PE, KNOWN LUNG MALIGNANCY Reason for Visit Acidosis, lactic History of coronary artery disease Major hemoptysis Pulmonary cavitary lesion Pulmonary embolus Pulmonary neoplasm Sinus tachycardia by electrocardiogram Benign essential HTN COPD with acute exacerbation Chief Complaint LUNG PSA PE, LUNG CANCER PE, LUNG CANCER ACUTE PE, KNOWN LUNG MALIGNANCY ACUTE PE, KNOWN LUNG MALIGNANCY blood in urine Reason for Visit Acidosis, lactic History of coronary artery disease Pulmonary cavitary lesion Benign essential HTN COPD with acute exacerbation Major hemoptysis Sinus tachycardia by electrocardiogram Chief Complaint LUNG PSA PE, LUNG CANCER PE, LUNG CANCER ACUTE PE, KNOWN LUNG MALIGNANCY ACUTE PE, KNOWN LUNG MALIGNANCY blood in urine PROSTATE CANCER, GROSS HEMATURIA Reason for Visit Acidosis, lactic History of coronary artery disease Pulmonary cavitary lesion Benign essential HTN COPD with acute exacerbation Major hemoptysis Sinus tachycardia by electrocardiogram Chief Complaint Admit Date 3 M FU February 11, 2024 12:24pm COPD EXACERBATION February 19, 2024 6:04pm COPD EXACERBATION February 20, 2024 11:02am COPD EXACERBATION February 21, 2024 10:11am COPD EXACERBATION February 22, 2024 4:45pm wound March 30, 2024 1 :51pm wound March 30, 2024 5 :13pm wound April 13, 2024 3:30pm wound April 27, 2024 2:00pm wound April 27, 2024 2:54pm wound May 11, 2024 1:5 5pm wound May 11, 2024 3:2 5pm COPD EXACERBATION May 22, 2024 3:1 4pm Reason for Visit Admit Date Acute anemia February 11, 2024 12:24pm Chronic peptic ulcer with bleeding Decem 2023 12:24pm Hypoxia February 19, 2024 6:04pm COPD exacerbation February 19, 2024 6:04pm Chronic ulcer of left ankle March 1:51pm History of lung cancer March 30 1:51pm History of peripheral arterial disease J anuary 2024 1:51pm COPD (chronic obstructive pulmonary dise ase) March 30, 2024 1:51pm Chronic ulcer of left ankle April 2:00pm History of lung cancer April 27 2:00pm History of peripheral arterial disease F ebruary 2024 2:00pm COPD (chronic obstructive pulmonary dise ase) April 27, 2024 2:00pm Chronic ulcer of left ankle May 11, 2024 1:55pm History of lung cancer May 11, 2024 1:55pm History of peripheral arterial disease M arch 2024 1:55pm COPD (chronic obstructive pulmonary dise ase) May 11, 2024 1:55pm Acidosis, lactic May 22, 2024 3:1 4pm Acute exacerbation of chroni c obstructive pulmonary disease May 22, 2024 3:14pm Chronic respiratory failure with hypoxia and hypercapnia May 22, 2024 3:14pm Chief Complaint Admit Date 3 M FU February 11, 2024 12:24pm COPD EXACERBATION February 19, 2024 6:04pm COPD EXACERBATION February 20, 2024 11:02am COPD EXACERBATION February 21, 2024 10:11am COPD EXACERBATION February 22, 2024 4:45pm wound March 30, 2024 1 :51pm wound March 30, 2024 5 :13pm wound April 13, 2024 3:30pm wound April 27, 2024 2:00pm wound April 27, 2024 2:54pm wound May 11, 2024 1:5 5pm wound May 11, 2024 3:2 5pm COPD EXACERBATION May 22, 2024 3:1 4pm COPD EXACERBATION May 23, 2024 10: 51am COPD EXACERBATION May 24, 2024 2:0 5pm Chief Complaint Admit Date 3 M FU February 11, 2024 12:24pm COPD EXACERBATION February 19, 2024 6:04pm COPD EXACERBATION February 20, 2024 11:02am COPD EXACERBATION February 21, 2024 10:11am COPD EXACERBATION February 22, 2024 4:45pm wound March 30, 2024 1 :51pm wound March 30, 2024 5 :13pm wound April 13, 2024 3:30pm wound April 27, 2024 2:00pm wound April 27, 2024 2:54pm wound May 11, 2024 1:5 5pm wound May 11, 2024 3:2 5pm COPD EXACERBATION May 22, 2024 3:1 4pm COPD EXACERBATION May 23, 2024 10: 51am COPD EXACERBATION May 24, 2024 2:0 5pm wound June 01, 2024 11:4 1am LOWER GI BLEED June 03, 2024 5:32 pm Reason for Visit Admit Date Acute anemia February 11, 2024 12:24pm Chronic peptic ulcer with bleeding Decem 2023 12:24pm Hypoxia February 19, 2024 6:04pm COPD exacerbation February 19, 2024 6:04pm Chronic ulcer of left ankle March 1:51pm History of lung cancer March 30 1:51pm History of peripheral arterial disease J anuary 2024 1:51pm COPD (chronic obstructive pulmonary dise ase) March 30, 2024 1:51pm Chronic ulcer of left ankle April 2:00pm History of lung cancer April 27 2:00pm History of peripheral arterial disease F ebruary 2024 2:00pm COPD (chronic obstructive pulmonary dise ase) April 27, 2024 2:00pm Chronic ulcer of left ankle May 11, 2024 1:55pm History of lung cancer May 11, 2024 1:55pm History of peripheral arterial disease M arch 2024 1:55pm COPD (chronic obstructive pulmonary dise ase) May 11, 2024 1:55pm Acidosis, lactic May 22, 2024 3:1 4pm Acute exacerbation of chroni c obstructive pulmonary disease May 22, 2024 3:14pm Chronic respiratory failure with hypoxia and hypercapnia May 22, 2024 3:14pm 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 June 01, 2024 11:41am Other specified peripheral vascular dise ases June 01, 2024 11:41am Acute lower gastrointestinal bleeding Ap ril 2024 5:32pm Chief Complaint Admit Date 3 M FU February 11, 2024 12:24pm COPD EXACERBATION February 19, 2024 6:04pm COPD EXACERBATION February 20, 2024 11:02am COPD EXACERBATION February 21, 2024 10:11am COPD EXACERBATION February 22, 2024 4:45pm wound March 30, 2024 1 :51pm wound March 30, 2024 5 :13pm wound April 13, 2024 3:30pm wound April 27, 2024 2:00pm wound April 27, 2024 2:54pm wound May 11, 2024 1:5 5pm wound May 11, 2024 3:2 5pm COPD EXACERBATION May 22, 2024 3:1 4pm COPD EXACERBATION May 23, 2024 10: 51am COPD EXACERBATION May 24, 2024 2:0 5pm wound June 01, 2024 11:4 1am LOWER GI BLEED June 03, 2024 5:32 pm LOWER GI BLEED June 04, 2024 11:2 4am LOWER GI BLEED June 04, 2024 12:5 4pm LOWER GI BLEED June 05, 2024 9:27 am Reason for Visit Admit Date Acute anemia February 11, 2024 12:24pm Chronic peptic ulcer with bleeding Decem 2023 12:24pm Hypoxia February 19, 2024 6:04pm COPD exacerbation February 19, 2024 6:04pm Chronic ulcer of left ankle March 1:51pm History of lung cancer March 30 1:51pm History of peripheral arterial disease J anuary 2024 1:51pm COPD (chronic obstructive pulmonary dise ase) March 30, 2024 1:51pm Chronic ulcer of left ankle April 2:00pm History of lung cancer April 27 2:00pm History of peripheral arterial disease F ebruary 2024 2:00pm COPD (chronic obstructive pulmonary dise ase) April 27, 2024 2:00pm Chronic ulcer of left ankle May 11, 2024 1:55pm History of lung cancer May 11, 2024 1:55pm History of peripheral arterial disease M arch 2024 1:55pm COPD (chronic obstructive pulmonary dise ase) May 11, 2024 1:55pm Acidosis, lactic May 22, 2024 3:1 4pm Acute exacerbation of chroni c obstructive pulmonary disease May 22, 2024 3:14pm Chronic respiratory failure with hypoxia and hypercapnia May 22, 2024 3:14pm 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 June 01, 2024 11:41am Other specified peripheral vascular dise ases June 01, 2024 11:41am ABLA (acute blood loss anemia) May 5:32pm Acute lower gastrointestinal bleeding Ap ril 2024 5:32pm Chief Complaint Admit Date COPD EXACERBATION February 19, 2024 6:04pm COPD EXACERBATION February 20, 2024 11:02am COPD EXACERBATION February 21, 2024 10:11am COPD EXACERBATION February 22, 2024 4:45pm wound March 30, 2024 1 :51pm wound March 30, 2024 5 :13pm wound April 13, 2024 3:30pm wound April 27, 2024 2:00pm wound April 27, 2024 2:54pm wound May 11, 2024 1:5 5pm wound May 11, 2024 3:2 5pm COPD EXACERBATION May 22, 2024 3:1 4pm COPD EXACERBATION May 23, 2024 10: 51am COPD EXACERBATION May 24, 2024 2:0 5pm LOWER GI BLEED June 03, 2024 5:32 pm LOWER GI BLEED June 04, 2024 11:2 4am LOWER GI BLEED June 04, 2024 12:5 4pm LOWER GI BLEED June 05, 2024 9:27 am wound June 08, 2024 10:3 0am 6 M FU June 08, 2024 2:55 pm INT LAB ORDER June 08, 2024 3:39 pm EORDER June 10, 2024 9:4 9am pill cam June 13, 2024 11: 49am 2 ORDERING DOCTORS June 13, 2024 12: 03pm Reason for Visit Admit Date Hypoxia February 19, 2024 6:04pm COPD exacerbation February 19, 2024 6:04pm Chronic ulcer of left ankle March 1:51pm History of lung cancer March 30 1:51pm History of peripheral arterial disease J anuary 2024 1:51pm COPD (chronic obstructive pulmonary dise ase) March 30, 2024 1:51pm Chronic ulcer of left ankle April 2:00pm History of lung cancer April 27 2:00pm History of peripheral arterial disease F ebruary 2024 2:00pm COPD (chronic obstructive pulmonary dise ase) April 27, 2024 2:00pm Chronic ulcer of left ankle May 11, 2024 1:55pm History of lung cancer May 11, 2024 1:55pm History of peripheral arterial disease M arch 2024 1:55pm COPD (chronic obstructive pulmonary dise ase) May 11, 2024 1:55pm Acidosis, lactic May 22, 2024 3:1 4pm Acute exacerbation of chroni c obstructive pulmonary disease May 22, 2024 3:14pm Chronic respiratory failure with hypoxia and hypercapnia May 22, 2024 3:14pm ABLA (acute blood loss anemia) May 5:32pm Acute lower gastrointestinal bleeding Ap ril 2024 5:32pm 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 June 08, 2024 10:30am Other specified peripheral vascular dise ases June 08, 2024 10:30am Anemia June 08, 2024 2:55 pm Angiodysplasia of gastrointestinal tract June 08, 2024 2:55pm Chief Complaint Admit Date COPD EXACERBATION February 19, 2024 6:04pm COPD EXACERBATION February 20, 2024 11:02am COPD EXACERBATION February 21, 2024 10:11am COPD EXACERBATION February 22, 2024 4:45pm wound March 30, 2024 1 :51pm wound March 30, 2024 5 :13pm wound April 13, 2024 3:30pm wound April 27, 2024 2:00pm wound April 27, 2024 2:54pm wound May 11, 2024 1:5 5pm wound May 11, 2024 3:2 5pm COPD EXACERBATION May 22, 2024 3:1 4pm COPD EXACERBATION May 23, 2024 10: 51am COPD EXACERBATION May 24, 2024 2:0 5pm LOWER GI BLEED June 03, 2024 5:32 pm LOWER GI BLEED June 04, 2024 11:2 4am LOWER GI BLEED June 04, 2024 12:5 4pm LOWER GI BLEED June 05, 2024 9:27 am 6 M FU June 08, 2024 2:55 pm INT LAB ORDER June 08, 2024 3:39 pm EORDER June 10, 2024 9:4 9am pill cam June 13, 2024 11: 49am 2 ORDERING DOCTORS June 13, 2024 12: 03pm wound June 15, 2024 11: 45am Reason for Visit Admit Date Hypoxia February 19, 2024 6:04pm COPD exacerbation February 19, 2024 6:04pm Chronic ulcer of left ankle March 1:51pm History of lung cancer March 30 1:51pm History of peripheral arterial disease J anuary 2024 1:51pm COPD (chronic obstructive pulmonary dise ase) March 30, 2024 1:51pm Chronic ulcer of left ankle April 2:00pm History of lung cancer April 27 2:00pm History of peripheral arterial disease F ebruary 2024 2:00pm COPD (chronic obstructive pulmonary dise ase) April 27, 2024 2:00pm Chronic ulcer of left ankle May 11, 2024 1:55pm History of lung cancer May 11, 2024 1:55pm History of peripheral arterial disease M arch 2024 1:55pm COPD (chronic obstructive pulmonary dise ase) May 11, 2024 1:55pm Acidosis, lactic May 22, 2024 3:1 4pm Acute exacerbation of chroni c obstructive pulmonary disease May 22, 2024 3:14pm Chronic respiratory failure with hypoxia and hypercapnia May 22, 2024 3:14pm ABLA (acute blood loss anemia) May 5:32pm Acute lower gastrointestinal bleeding Ap 2024 5:32pm Anemia June 08, 2024 2:55 pm Angiodysplasia of gastrointestinal tract June 08, 2024 2:55pm 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 June 15, 2024 11:45am Other specified peripheral vascular dise ases June 15, 2024 11:45am Chief Complaint Admit Date wound March 30, 2024 1 :51pm wound March 30, 2024 5 :13pm wound April 13, 2024 3:30pm wound April 27, 2024 2:00pm wound April 27, 2024 2:54pm wound May 11, 2024 1:5 5pm wound May 11, 2024 3:2 5pm COPD EXACERBATION May 22, 2024 3:1 4pm COPD EXACERBATION May 23, 2024 10: 51am COPD EXACERBATION May 24, 2024 2:0 5pm LOWER GI BLEED June 03, 2024 5:32 pm LOWER GI BLEED June 04, 2024 11:2 4am LOWER GI BLEED June 04, 2024 12:5 4pm LOWER GI BLEED June 05, 2024 9:27 am 6 M FU Katherine 9th, 2025 2:55 pm INT LAB ORDER June 08, 2024 3:39 pm EORDER June 10, 2024 9:4 9am pill cam June 13, 2024 11: 49am 2 ORDERING DOCTORS June 13, 2024 12: 03pm wound June 22, 2024 1:3 0pm Test Result June 30, 2024 1:17pm EORDER June 30, 2024 1:44pm wound July 06, 2024 8:23am Reason for Visit Admit Date Chronic ulcer of left ankle March 1:51pm History of lung cancer March 30 1:51pm History of peripheral arterial disease J anuary 2024 1:51pm COPD (chronic obstructive pulmonary dise ase) March 30, 2024 1:51pm Chronic ulcer of left ankle April 2:00pm History of lung cancer April 27 2:00pm History of peripheral arterial disease F ebruary 2024 2:00pm COPD (chronic obstructive pulmonary dise ase) April 27, 2024 2:00pm Chronic ulcer of left ankle May 11, 2024 1:55pm History of lung cancer May 11, 2024 1:55pm History of peripheral arterial disease M arch 2024 1:55pm COPD (chronic obstructive pulmonary dise ase) May 11, 2024 1:55pm Acidosis, lactic May 22, 2024 3:1 4pm Acute exacerbation of chroni c obstructive pulmonary disease May 22, 2024 3:14pm Chronic respiratory failure with hypoxia and hypercapnia May 22, 2024 3:14pm ABLA (acute blood loss anemia) May 5:32pm Acute lower gastrointestinal bleeding Ap ril 2024 5:32pm Anemia June 08, 2024 2:55 pm Angiodysplasia of gastrointestinal tract June 08, 2024 2:55pm 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 June 22, 2024 1:30pm Other specified peripheral vascular dise ases June 22, 2024 1:30pm Angiodysplasia of gastrointestinal tract June 30, 2024 1:17pm Enteritis June 30, 2024 1:17pm 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 July 06, 2024 8:23am Other specified peripheral vascular dise ases July 06, 2024 8:23am Chief Complaint Admit Date wound March 30, 2024 1 :51pm wound March 30, 2024 5 :13pm wound April 13, 2024 3:30pm wound April 27, 2024 2:00pm wound April 27, 2024 2:54pm wound May 11, 2024 1:5 5pm wound May 11, 2024 3:2 5pm COPD EXACERBATION May 22, 2024 3:1 4pm COPD EXACERBATION May 23, 2024 10: 51am COPD EXACERBATION May 24, 2024 2:0 5pm LOWER GI BLEED June 03, 2024 5:32 pm LOWER GI BLEED June 04, 2024 11:2 4am LOWER GI BLEED June 04, 2024 12:5 4pm LOWER GI BLEED June 05, 2024 9:27 am 6 M FU June 08, 2024 2:55 pm INT LAB ORDER June 08, 2024 3:39 pm EORDER June 10, 2024 9:4 9am pill cam June 13, 2024 11: 49am 2 ORDERING DOCTORS June 13, 2024 12: 03pm wound June 22, 2024 1:3 0pm Test Result June 30, 2024 1:17pm EORDER June 30, 2024 1:44pm wound July 13, 2024 2:00p m Reason for Visit Admit Date Chronic ulcer of left ankle March 1:51pm History of lung cancer March 30 1:51pm History of peripheral arterial disease J anuary 2024 1:51pm COPD (chronic obstructive pulmonary dise ase) March 30, 2024 1:51pm Chronic ulcer of left ankle April 2:00pm History of lung cancer April 27 2:00pm History of peripheral arterial disease F ebruary 2024 2:00pm COPD (chronic obstructive pulmonary dise ase) April 27, 2024 2:00pm Chronic ulcer of left ankle May 11, 2024 1:55pm History of lung cancer May 11, 2024 1:55pm History of peripheral arterial disease M arch 2024 1:55pm COPD (chronic obstructive pulmonary dise ase) May 11, 2024 1:55pm Acidosis, lactic May 22, 2024 3:1 4pm Acute exacerbation of chroni c obstructive pulmonary disease May 22, 2024 3:14pm Chronic respiratory failure with hypoxia and hypercapnia May 22, 2024 3:14pm ABLA (acute blood loss anemia) May 5:32pm Acute lower gastrointestinal bleeding Ap ril 2024 5:32pm Anemia June 08, 2024 2:55 pm Angiodysplasia of gastrointestinal tract June 08, 2024 2:55pm 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 June 22, 2024 1:30pm Other specified peripheral vascular dise ases June 22, 2024 1:30pm Angiodysplasia of gastrointestinal tract June 30, 2024 1:17pm Enteritis June 30, 2024 1:17pm 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 July 13, 2024 2:00pm Other specified peripheral vascular dise ases July 13, 2024 2:00pm 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 layer exposed July 13, 2024 2:00pm Chief Complaint Admit Date wound April 13, 2024 3:30pm wound April 27, 2024 2:00pm wound April 27, 2024 2:54pm wound May 11, 2024 1:5 5pm wound May 11, 2024 3:2 5pm COPD EXACERBATION May 22, 2024 3:1 4pm COPD EXACERBATION May 23, 2024 10: 51am COPD EXACERBATION May 24, 2024 2:0 5pm LOWER GI BLEED June 03, 2024 5:32 pm LOWER GI BLEED June 04, 2024 11:2 4am LOWER GI BLEED June 04, 2024 12:5 4pm LOWER GI BLEED June 05, 2024 9:27 am 6 M FU June 08, 2024 2:55 pm INT LAB ORDER June 08, 2024 3:39 pm EORDER June 10, 2024 9:4 9am pill cam June 13, 2024 11: 49am 2 ORDERING DOCTORS June 13, 2024 12: 03pm wound June 22, 2024 1:3 0pm Test Result June 30, 2024 1:17pm EORDER June 30, 2024 1:44pm wound July 27, 2024 11:00 am Reason for Visit Admit Date Chronic ulcer of left ankle April 2:00pm History of lung cancer April 27 2:00pm History of peripheral arterial disease F ebruary 2024 2:00pm COPD (chronic obstructive pulmonary dise ase) April 27, 2024 2:00pm Chronic ulcer of left ankle May 11, 2024 1:55pm History of lung cancer May 11, 2024 1:55pm History of peripheral arterial disease M arch 2024 1:55pm COPD (chronic obstructive pulmonary dise ase) May 11, 2024 1:55pm Acidosis, lactic May 22, 2024 3:1 4pm Acute exacerbation of chroni c obstructive pulmonary disease May 22, 2024 3:14pm Chronic respiratory failure with hypoxia and hypercapnia May 22, 2024 3:14pm ABLA (acute blood loss anemia) May 5:32pm Acute lower gastrointestinal bleeding Ap 2024 5:32pm Anemia June 08, 2024 2:55 pm Angiodysplasia of gastrointestinal tract June 08, 2024 2:55pm 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 June 22, 2024 1:30pm Other specified peripheral vascular dise ases June 22, 2024 1:30pm Angiodysplasia of gastrointestinal tract June 30, 2024 1:17pm Enteritis June 30, 2024 1:17pm 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 July 27, 2024 11:00am Other specified peripheral vascular dise ases July 27, 2024 11:00am 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 layer exposed July 27, 2024 11:00am Chief Complaint Admit Date wound May 11, 2024 1:5 5pm wound May 11, 2024 3:2 5pm COPD EXACERBATION May 22, 2024 3:1 4pm COPD EXACERBATION May 23, 2024 10: 51am COPD EXACERBATION May 24, 2024 2:0 5pm LOWER GI BLEED June 03, 2024 5:32 pm LOWER GI BLEED June 04, 2024 11:2 4am LOWER GI BLEED June 04, 2024 12:5 4pm LOWER GI BLEED June 05, 2024 9:27 am 6 M FU June 08, 2024 2:55 pm INT LAB ORDER June 08, 2024 3:39 pm EORDER June 10, 2024 9:4 9am pill cam June 13, 2024 11: 49am 2 ORDERING DOCTORS June 13, 2024 12: 03pm wound June 22, 2024 1:3 0pm Test Result June 30, 2024 1:17pm EORDER June 30, 2024 1:44pm wound July 27, 2024 11:00 am wound August 24, 2024 2:00 pm Reason for Visit Admit Date Chronic ulcer of left ankle May 11, 2024 1:55pm History of lung cancer May 11, 2024 1:55pm History of peripheral arterial disease M arch 2024 1:55pm COPD (chronic obstructive pulmonary dise ase) May 11, 2024 1:55pm Acidosis, lactic May 22, 2024 3:1 4pm Acute exacerbation of chronic obstructiv e pulmonary disease May 22, 2024 3:14pm Chronic respiratory failure with hypoxia and hypercapnia May 22, 2024 3:14pm ABLA (acute blood loss anemia) May 5:32pm Acute lower gastrointestinal bleeding Ap 2024 5:32pm Anemia June 08, 2024 2:55 pm Angiodysplasia of gastrointestinal tract June 08, 2024 2:55pm 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 June 22, 2024 1:30pm Other specified peripheral vascular dise ases June 22, 2024 1:30pm Angiodysplasia of gastrointestinal tract June 30, 2024 1:17pm Enteritis June 30, 2024 1:17pm 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 July 27, 2024 11:00am Other specified peripheral vascular dise ases July 27, 2024 11:00am 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 layer exposed July 27, 2024 11:00am 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 bone involvement without evid August 24, 2024 2:00pm 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 Wait 10-20 seconds, then administer the radionuclide myocardial perfusion imaging agent. Given 04/24/2022 12:30 PM EST 0.4 mg Inactive Administered Medications - up to 3 most recent administrations Medication Order MAR Action Action Date Dose Rate Site perflutren lipid microspheres 1.3 mL in NaCl (PF) 0.9% 10 mL injection (DEFINITY) INTRAVENOUS, DIRECTED NEEDED, 1 dose, Starting on Thu04/15/22 at 1606, Until Natalie 04/24/22 at 0751, Per Protocol - for use during ECHO procedure only, If no IV access, insert saline lock prior to administering contrast. Discontinue saline lock post exam. If patient has central line or IVAD, may access for administration according to line specific nursing protocol. Once exam is complete, flush line and de-access per line specific nursing protocol.Dilute 1.3 ml of Definity with 8.7 ml of preservative-free saline. Given 04/24/2022 7:51 AM EST 0.3 mL sodium chloride 0.9 % (flush) 10 mL (BD POSIFLUSH) 10 mL, INTRAVENOUS, DIRECTED NEEDED, 1 dose, Starting on Thu04/15/22 at 1606, Until Natalie 04/24/22 at 0752, Per Protocol - for use during ECHO procedure only, no IV access, insert saline lock prior to administering contrast. Discontinue saline lock post exam. If patient has central line or IVAD, may access for administration according to line specific nursing protocol. Once exam is complete, flush line and de-access per line specific nursing protocol. Given 04/24/2022 7:52 AM EST 10 mL Health Concerns Infection Onset Date Last Indicated Resolved Time COVID-19 Rule-Out 05/13/2022 05/13/2022 05/13/2022 9:42 AM EDT Additional Source Comments (unrecognized sect ion and content) No Status Records FoundNo Status Records FoundNo Status Records FoundNo Status Records FoundNo Status Records FoundNo Status Records FoundNo Status Records FoundNo Status Records FoundNo Status Records Found INFORMATION SOURCE (unrecogn ized section and content) DATE CREATED AUTHOR 08/20/2017 [facility] DATE CREATED AUTHOR AUTHOR'S ORGANIZ ATION 04/08/2020 [facility] DATE CREATED AUTHOR AUTHOR'S ORGANIZ ATION 08/16/2020 [facility] DATE CREATED AUTHOR AUTHOR'S ORGANIZ ATION 09/05/2021 [facility] DATE CREATED AUTHOR AUTHOR'S ORGANIZ ATION 05/17/2022 [facility] DATE CREATED AUTHOR AUTHOR'S ORGANIZ ATION 04/05/2023 [facility] DATE CREATED AUTHOR AUTHOR'S ORGANIZ ATION 01/02/2024 [facility] DATE CREATED AUTHOR AUTHOR'S ORGANIZ ATION 09/12/2024 [facility] DATE CREATED AUTHOR AUTHOR'S ORGANIZ ATION 09/14/2024 [facility] Ordered Prescriptions (unrec ognized section and content) Prescription Sig Dispensed Refills Start Date End Da te ondansetron (ZOFRAN) 4 MG tablet Take 1 tablet by mouth 2 times daily as needed for Nausea or Vomiting 60 tablet 0 03/02/2020 polyethylene glycol (GLYCOLAX) 17 GM/SCOOP powder Take 17 g by mouth daily Can reduce once bowel pattern is regular 510 g 0 03/01/2020 03/31/2020 senna (SENOKOT) 8.6 MG tablet Take 1 tablet by mouth 2 times daily Can reduce once bowel pattern is regular 60 tablet 0 03/01/2020 03/31/2020 traMADol (ULTRAM) 50 MG tabletIndications:Lung nodule Take 1 tablet by mouth every 4 hours as needed for Pain for up to 7 days. Intended supply: 7 days. Take lowest dose possible to manage pain 42 tablet 0 03/01/2020 03/08/2020 Prescription Sig Dispensed Refills Start Date End Da te predniSONE (DELTASONE) 10 MG tablet Prednisone take 40 mg po daily for 1days then take 30 mg p.o. daily for 2 days Then take 20 mg po daily for 2 days Then take 10 mg po daily for 2 days 16 tablet 0 04/07/2020 benzonatate (TESSALON) 100 MG capsule Take 1 capsule by mouth 3 times daily as needed for Cough 15 capsule 0 04/07/2020 04/14/2020 Reason for Visit (unrecogniz ed section and content) Reason Comments Shortness of Breath pt came from [facility] via EMS for left sided hydropneumothorax pt states he was in the hospital 2 weeks ago with two chest tubes on the left side. pt went to [facility] today for SOB and was brought here. Reason Onset Date Comments Refill Request 05/28/2021 Reason Comments F/U 3 Month Reason Comments [address] Specialty Diagnoses / Procedures Referred By Contac t Referred To Contact CT IMAGING Diagnoses Malignant neoplasm of unspecified part of unspecified bronchus or lung (HCC) Procedures CT CHEST W IVCON DIAGNOSTIC COMPUTED TOMOGRAPHY THORAX W/CONTRAST Salazar Meraz, DO [address] [place] [address] Ct Imaging Referral ID Status Reason Start Date Expiration Date V isits Requested Visits Authorized [id number] Closed Auto-Generate d Referral 04/26/2021 05/26/2022 1 1 Reason Comments Established Patient Reason Onset Date Comments Refill Request 07/21/2021 Reason Comments Refill Request Reason Comments Cardiac Clearance Reason Comments Results Reason Comments Lab Orders Specialty Diagnoses / Procedures Referred By Contac t Referred To Contact CT IMAGING Diagnoses Malignant neoplasm of unspecified part of unspecified bronchus or lung (HCC) Procedures CT CHEST W IVCON DIAGNOSTIC COMPUTED TOMOGRAPHY THORAX W/CONTRAST Salazar Meraz, DO [address] [facility] [place] [address] Ct Imaging Referral ID Status Reason Start Date Expiration Date V isits Requested Visits Authorized [id number] Closed Auto-Generate d Referral 07/19/2021 08/18/2022 1 1 Reason Onset Date Comments Refill Request 11/19/2021 Reason Comments Established Patient Reason Comments Established Patient Follow-Up Reason Comments New Patient Ulcer Specialty Diagnoses / Procedures Referred By Contac t Referred To Contact Podiatry Diagnoses Pressure injury of right heel, unstageable (HCC) Peripheral arterial disease (HCC) Fissure in skin of foot Procedures CONSULT TO PODIATRY OFFICE/OUTPATIENT NEW HIGH MDM 60-74 MINUTES Tyrell Vigil, DO [address] [place] [address] Referral ID Status Reason Start Date Expiration Date V isits Requested Visits Authorized [id number] Closed PCP Requested Referral 01/21/2022 01/21/2023 1 1 Reason Comments Follow Up Ulcer Reason Comments Follow Up Ulcer Reason Comments Established Patient Reason Comments Established Patient Follow Up Ulcer Pain Reason Comments Cardiac Clearance pulmonary clearance Reason Comments Patient Update Reason Comments Established Patient Follow Up Pain Ulcer Reason Comments Established Patient Follow Up Ulcer Reason Comments Follow Up Reason Comments Cardiac Clearance Form Reason Onset Date Comments Refill Request 05/27/2022 Reason Comments Established Patient Follow Up Ulcer Reason Comments Established Patient Follow Up Ulcer Pain Reason Comments apligraf Reason Comments Established Patient Ulcer Pain Reason Comments Established Patient Pain Ulcer Reason Comments Appointment Reason Comments Orders Patient Question Reason Onset Date Comments Refill Request 09/28/2022 Reason Comments Follow Up Reason Comments Spirometry Specialty Diagnoses / Procedures Referred By Contac t Referred To [facility] Diagnoses SOB (shortness of breath) Procedures LUNG DIFFUSION CAPACITY (DLCO) DIFFUSING CAPACITY Ab Calvillo MD [address] [place] [id number] Respiratory [place] [id number] [place] [id number] Referral ID Status Reason Start Date Expiration Date V isits Requested Visits Authorized [id number] Closed Auto-Generate d Referral 10/13/2022 11/12/2023 1 1 Specialty Diagnoses / Procedures Referred By Contac t Referred To [facility] Diagnoses SOB (shortness of breath) Procedures SPIROMETRY WITH DILATOR IF OBSTRUCTED BRNCDILAT RSPSE SPMTRY PRE&POST-BRNCDILAT ADMN Ab Calvillo MD [address] [place] [address] [address] Referral ID Status Reason Start Date Expiration Date V isits Requested Visits Authorized [id number] Closed Auto-Generate d Referral 10/13/2022 11/12/2023 1 1 Reason Comments New Patient COPD Reason Comments Forms [employer]-RE: Oxygen Reason Comments Orders Specialty Diagnoses / Procedures Referred By Contac t Referred [facility] Diagnoses Hypoxemia Procedures OXIMETRY WITH AMBULATION NONINVASIVE EAR/PULSE OXIMETRY MULTIPLE Ab Solomon MD [address] [place] [address] Respiratory [place] [address] [place] [address] Referral ID Status Reason Start Date Expiration Date V isits Requested Visits Authorized [id number] Closed Auto-Generate d Referral 11/06/2022 12/06/2023 1 1 Reason Onset Date Comments Refill Request 11/16/2022 Reason Comments Established Patient Pain Reason Onset Date Comments Refill Request 11/24/2022 Reason Onset Date Comments F/U 3 Month Immunizations 12/19/2022 Flu vaccination Reason Comments Forms To hold Plavix Specialty Diagnoses / Procedures Referred By Contac t Referred To Contact CT IMAGING Diagnoses Malignant neoplasm of unspecified part of unspecified bronchus or lung (HCC) Procedures CT CHEST W IVCON DIAGNOSTIC COMPUTED TOMOGRAPHY THORAX W/CONTRAST Salazar Meraz DO [address] [facility] [place] [address] [place] [address] Referral ID Status Reason Start Date Expiration Date V isits Requested Visits Authorized [id number] Closed Auto-Generate d Referral 11/19/2021 12/19/2022 [address] Reason Comments Established Patient 3 month follow up [place] Reason Comments Follow-up Reason Comments Opened In Error Reason Onset Date Comments Refill Request 04/15/2023 Reason Comments Hospital F/U Reason Comments Established Patient Follow up 4 month Reason Comments AVS 05/18/[address] Specialty Diagnoses / Procedures Referred By Contac t Referred To Contact CT IMAGING Diagnoses Squamous carcinoma of lung, left (HCC) Procedures CT CHEST W IVCON DIAGNOSTIC COMPUTED TOMOGRAPHY THORAX W/CONTRAST Salazar Meraz, [address] [place] [address] [place] [address] Referral ID Status Reason Start Date Expiration Date V isits Requested Visits Authorized [id number] Closed Auto-Generate d Referral 05/18/2023 06/16/2024 1 1 Reason Onset Date Comments Refill Request 05/24/2023 Reason Onset Date Comments Refill Request 06/03/2023 Reason Comments Radiology Pre Procedure Instructions LEF T lung biopsy Reason Comments Results Referral ID Status Reason Start Date Expiration Date V isits Requested Visits Authorized [id number] Closed Auto-Generate d Referral 06/19/2023 07/18/2024 1 1 Reason Comments Orders Reason Onset Date Comments Refill Request 08/23/2023 Reason Comments Medication Question Reason Onset Date Comments Refill Request 09/19/2023 Reason Comments Cough Reason Comments Cough Chest Congestion Reason Onset Date Comments Transition Of Care 10/01/2023 [facility] d/c Reason Comments Patient Update Lab work Reason Onset Date Comments Refill Request 10/16/2023 Reason Comments [facility] HH-Order Request Reason Comments [facility] HH question Reason Comments SW Visit Reason Comments Patient Question Reason Onset Date Comments Refill Request 10/28/2023 Reason Comments OT Plan of Care Reason Comments POC Specialty Diagnoses / Procedures Referred By Contac t Referred To Contact CT IMAGING Diagnoses Squamous carcinoma of lung, left (HCC) Lung nodules Procedures CT CHEST W IVCON DIAGNOSTIC COMPUTED TOMOGRAPHY THORAX W/CONTRAST Salazar Meraz, DO [address] [place] [address] Ct Imaging [place] [address] Referral ID Status Reason Start Date Expiration Date V isits Requested Visits Authorized [id number] Closed Auto-Generate d Referral 08/24/2023 09/22/2024 1 1 Reason Comments OT plan of care Reason Comments LESION, SKIN Inner LEFT ankle x 4 days; swelling around sore/lesion Reason Comments Established Patient Ulcer Reason Comments Appointment Vascular Reason Comments Orders for home care Reason Comments Home Health Nursing Order Request Reason Comments Patient Question elevated heart rate Reason Comments F/U 6 Month Reason Comments Updated [facility] Plan of Care Reason Comments Follow Up 3 month follow up Reason Comments Established Patient Pain Ulcer Reason Comments Appointment Specialty Diagnoses / Procedures Referred By Contac t Referred To Contact CT IMAGING Diagnoses Pneumonia of left lung due to infectious organism, unspecified part of lung Procedures CT CHEST WO IVCON DIAGNOSTIC COMPUTED TOMOGRAPHY THORAX W/O CNTFREDT Kailash Cordova, IMPROVEMENT COORDINATOR.LEGAL STENOGRAPHER [address] [place] [address] Ct Imaging [place] [address] Referral ID Status Reason Start Date Expiration Date V isits Requested Visits Authorized [id number] Closed Auto-Generate d Referral 01/12/2024 01/06/2025 1 1 Reason Comments Established Patient CT review Reason Comments Home Health orders Specialty Diagnoses / Procedures Referred By Contac t Referred To Contact CT IMAGING Diagnoses Peripheral vascular disease (HCC) Procedures CTA ABD/PEL LOWER EXTREM W IVCON CTA ABDL AORTA&BI ILIOFEM W/CONTRAST&POSTP Tyrell Vigil D, DO [address] [place] [address] Ct Imaging [place] [address] Referral ID Status Reason Start Date Expiration Date V isits Requested Visits Authorized [id number] Closed Auto-Generate d Referral 01/05/2024 02/03/2025 1 1 Reason Onset Date Comments Refill Request 02/12/2024 Reason Comments residential plan of care Reason Onset Date Comments Refill Request 02/28/2024 Reason Comments resume residential Referral ID Status Reason Start Date Expiration Date V isits Requested Visits Authorized [id number] Closed Auto-Generate d Referral 11/22/2023 12/21/2024 1 1 Reason Comments Follow Up Established Patient Ulcer Reason Comments Established Patient 6 month follow up [place] Reason Comments Forms AEP Reason Onset Date Comments Refill Request 04/12/2024 Reason Comments Patient Request Reason Comments Home Health Update Reason Comments Hospital F/U COPD Reason Comments [facility] Plan of Care Reason Comments Home Health Point of Care Results Reason Onset Date Comments Refill Request 06/08/2024 Reason Comments Non-Chemotherapy Treatment Specialty Diagnoses / [facility] Diagnoses 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 Gastrointestinal hemorrhage associated with gastric ulcer Salazar Meraz, DO [address] [place] [address] Phone: tel: fax: Salazar Meraz, DO [address] [place] [address] Phone: tel: fax: Referral ID Status Reason Start Date Expiration Date V isits Requested Visits Authorized [id number] Authorized 06/17/2024 09/15/2024 99 99 Reason Comments Social Work Services 1st Time Treatment Report Reason Comments Established Patient 7 month follow up Reason Onset Date Comments Refill Request 08/07/2024 Reason Comments Established Patient 3 month follow up Source Comments (unrecognize d section and content) In the event this informatio n is protected by the Federal Confidentiality of Alcohol and Drug Abuse Patient Records regulations: The Federal rules restrict any use of the information to criminally investigate or prosecute any alcohol or drug abuse patient.[facility] the event this information is protected by the Federal Confidentiality of Alcohol and Drug Abuse Patient Records regulations: The Federal rules restrict any use of the information to criminally investigate or prosecute any alcohol or drug abuse patient.[facility] HospitalIn the event this information is protected by the Federal Confidentiality of Alcohol and Drug Abuse Patient Records regulations: The Federal rules restrict any use of the information to criminally investigate or prosecute any alcohol or drug abuse patient.[facility] HospitalIn the event this information is protected by the Federal Confidentiality of Alcohol and Drug Abuse Patient Records regulations: The Federal rules restrict any use of the information to criminally investigate or prosecute any alcohol or drug abuse patient.[facility] HospitalIn the event this information is protected by the Federal Confidentiality of Alcohol and Drug Abuse Patient Records regulations: The Federal rules restrict any use of the information to criminally investigate or prosecute any alcohol or drug abuse patient.[facility] HospitalIn the event this information is protected by the Federal Confidentiality of Alcohol and Drug Abuse Patient Records regulations: The Federal rules restrict any use of the information to criminally investigate or prosecute any alcohol or drug abuse patient.[facility] HospitalIn the event this information is protected by the Federal Confidentiality of Alcohol and Drug Abuse Patient Records regulations: The Federal rules restrict any use of the information to criminally investigate or prosecute any alcohol or drug abuse patient.[facility] HospitalIn the event this information is protected by the Federal Confidentiality of Alcohol and Drug Abuse Patient Records regulations: The Federal rules restrict any use of the information to criminally investigate or prosecute any alcohol or drug abuse patient.[facility] HospitalIn the event this information is protected by the Federal Confidentiality of Alcohol and Drug Abuse Patient Records regulations: The Federal rules restrict any use of the information to criminally investigate or prosecute any alcohol or drug abuse patient.[facility] HospitalIn the event this information is protected by the Federal Confidentiality of Alcohol and Drug Abuse Patient Records regulations: The Federal rules restrict any use of the information to criminally investigate or prosecute any alcohol or drug abuse patient.[facility] HospitalIn the event this information is protected by the Federal Confidentiality of Alcohol and Drug Abuse Patient Records regulations: The Federal rules restrict any use of the information to criminally investigate or prosecute any alcohol or drug abuse patient.[facility] HospitalIn the event this information is protected by the Federal Confidentiality of Alcohol and Drug Abuse Patient Records regulations: The Federal rules restrict any use of the information to criminally investigate or prosecute any alcohol or drug abuse patient.[facility] HospitalIn the event this information is protected by the Federal Confidentiality of Alcohol and Drug Abuse Patient Records regulations: The Federal rules restrict any use of the information to criminally investigate or prosecute any alcohol or drug abuse patient.[facility] HospitalIn the event this information is protected by the Federal Confidentiality of Alcohol and Drug Abuse Patient Records regulations: The Federal rules restrict any use of the information to criminally investigate or prosecute any alcohol or drug abuse patient.[facility] HospitalIn the event this information is protected by the Federal Confidentiality of Alcohol and Drug Abuse Patient Records regulations: The Federal rules restrict any use of the information to criminally investigate or prosecute any alcohol or drug abuse patient.[facility] HospitalIn the event this information is protected by the Federal Confidentiality of Alcohol and Drug Abuse Patient Records regulations: The Federal rules restrict any use of the information to criminally investigate or prosecute any alcohol or drug abuse patient.[facility] HospitalIn the event this information is protected by the Federal Confidentiality of Alcohol and Drug Abuse Patient Records regulations: The Federal rules restrict any use of the information to criminally investigate or prosecute any alcohol or drug abuse patient.[facility] HospitalIn the event this information is protected by the Federal Confidentiality of Alcohol and Drug Abuse Patient Records regulations: The Federal rules restrict any use of the information to criminally investigate or prosecute any alcohol or drug abuse patient.[facility] HospitalIn the event this information is protected by the Federal Confidentiality of Alcohol and Drug Abuse Patient Records regulations: The Federal rules restrict any use of the information to criminally investigate or prosecute any alcohol or drug abuse patient.[facility] HospitalIn the event this information is protected by the Federal Confidentiality of Alcohol and Drug Abuse Patient Records regulations: The Federal rules restrict any use of the information to criminally investigate or prosecute any alcohol or drug abuse patient.[facility] HospitalIn the event this information is protected by the Federal Confidentiality of Alcohol and Drug Abuse Patient Records regulations: The Federal rules restrict any use of the information to criminally investigate or prosecute any alcohol or drug abuse patient.[facility] HospitalIn the event this information is protected by the Federal Confidentiality of Alcohol and Drug Abuse Patient Records regulations: The Federal rules restrict any use of the information to criminally investigate or prosecute any alcohol or drug abuse patient.[facility] HospitalIn the event this information is protected by the Federal Confidentiality of Alcohol and Drug Abuse Patient Records regulations: The Federal rules restrict any use of the information to criminally investigate or prosecute any alcohol or drug abuse patient.[facility] HospitalIn the event this information is protected by the Federal Confidentiality of Alcohol and Drug Abuse Patient Records regulations: The Federal rules restrict any use of the information to criminally investigate or prosecute any alcohol or drug abuse patient.[facility] HospitalIn the event this information is protected by the Federal Confidentiality of Alcohol and Drug Abuse Patient Records regulations: The Federal rules restrict any use of the information to criminally investigate or prosecute any alcohol or drug abuse patient.[facility] HospitalIn the event this information is protected by the Federal Confidentiality of Alcohol and Drug Abuse Patient Records regulations: The Federal rules restrict any use of the information to criminally investigate or prosecute any alcohol or drug abuse patient.[facility] HospitalIn the event this information is protected by the Federal Confidentiality of Alcohol and Drug Abuse Patient Records regulations: The Federal rules restrict any use of the information to criminally investigate or prosecute any alcohol or drug abuse patient.[facility] HospitalIn the event this information is protected by the Federal Confidentiality of Alcohol and Drug Abuse Patient Records regulations: The Federal rules restrict any use of the information to criminally investigate or prosecute any alcohol or drug abuse patient.[facility] HospitalIn the event this information is protected by the Federal Confidentiality of Alcohol and Drug Abuse Patient Records regulations: The Federal rules restrict any use of the information to criminally investigate or prosecute any alcohol or drug abuse patient.[facility] HospitalIn the event this information is protected by the Federal Confidentiality of Alcohol and Drug Abuse Patient Records regulations: The Federal rules restrict any use of the information to criminally investigate or prosecute any alcohol or drug abuse patient.[facility] HospitalIn the event this information is protected by the Federal Confidentiality of Alcohol and Drug Abuse Patient Records regulations: The Federal rules restrict any use of the information to criminally investigate or prosecute any alcohol or drug abuse patient.[facility] HospitalIn the event this information is protected by the Federal Confidentiality of Alcohol and Drug Abuse Patient Records regulations: The Federal rules restrict any use of the information to criminally investigate or prosecute any alcohol or drug abuse patient.[facility] HospitalIn the event this information is protected by the Federal Confidentiality of Alcohol and Drug Abuse Patient Records regulations: The Federal rules restrict any use of the information to criminally investigate or prosecute any alcohol or drug abuse patient.[facility] HospitalIn the event this information is protected by the Federal Confidentiality of Alcohol and Drug Abuse Patient Records regulations: The Federal rules restrict any use of the information to criminally investigate or prosecute any alcohol or drug abuse patient.[facility] HospitalIn the event this information is protected by the Federal Confidentiality of Alcohol and Drug Abuse Patient Records regulations: The Federal rules restrict any use of the information to criminally investigate or prosecute any alcohol or drug abuse patient.[facility] HospitalIn the event this information is protected by the Federal Confidentiality of Alcohol and Drug Abuse Patient Records regulations: The Federal rules restrict any use of the information to criminally investigate or prosecute any alcohol or drug abuse patient.[facility] HospitalIn the event this information is protected by the Federal Confidentiality of Alcohol and Drug Abuse Patient Records regulations: The Federal rules restrict any use of the information to criminally investigate or prosecute any alcohol or drug abuse patient.[facility] HospitalIn the event this information is protected by the Federal Confidentiality of Alcohol and Drug Abuse Patient Records regulations: The Federal rules restrict any use of the information to criminally investigate or prosecute any alcohol or drug abuse patient.[facility] HospitalIn the event this information is protected by the Federal Confidentiality of Alcohol and Drug Abuse Patient Records regulations: The Federal rules restrict any use of the information to criminally investigate or prosecute any alcohol or drug abuse patient.[facility] HospitalIn the event this information is protected by the Federal Confidentiality of Alcohol and Drug Abuse Patient Records regulations: The Federal rules restrict any use of the information to criminally investigate or prosecute any alcohol or drug abuse patient.[facility] HospitalIn the event this information is protected by the Federal Confidentiality of Alcohol and Drug Abuse Patient Records regulations: The Federal rules restrict any use of the information to criminally investigate or prosecute any alcohol or drug abuse patient.[facility] HospitalIn the event this information is protected by the Federal Confidentiality of Alcohol and Drug Abuse Patient Records regulations: The Federal rules restrict any use of the information to criminally investigate or prosecute any alcohol or drug abuse patient.[facility]In the event this information is protected by the Federal Confidentiality of Alcohol and Drug Abuse Patient Records regulations: The Federal rules restrict any use of the information to criminally investigate or prosecute any alcohol or drug abuse patient.[facility] HospitalIn the event this information is protected by the Federal Confidentiality of Alcohol and Drug Abuse Patient Records regulations: The Federal rules restrict any use of the information to criminally investigate or prosecute any alcohol or drug abuse patient.[facility] HospitalIn the event this information is protected by the Federal Confidentiality of Alcohol and Drug Abuse Patient Records regulations: The Federal rules restrict any use of the information to criminally investigate or prosecute any alcohol or drug abuse patient.[facility] HospitalIn the event this information is protected by the Federal Confidentiality of Alcohol and Drug Abuse Patient Records regulations: The Federal rules restrict any use of the information to criminally investigate or prosecute any alcohol or drug abuse patient.[facility] HospitalIn the event this information is protected by the Federal Confidentiality of Alcohol and Drug Abuse Patient Records regulations: The Federal rules restrict any use of the information to criminally investigate or prosecute any alcohol or drug abuse patient.[facility] HospitalIn the event this information is protected by the Federal Confidentiality of Alcohol and Drug Abuse Patient Records regulations: The Federal rules restrict any use of the information to criminally investigate or prosecute any alcohol or drug abuse patient.[facility] HospitalIn the event this information is protected by the Federal Confidentiality of Alcohol and Drug Abuse Patient Records regulations: The Federal rules restrict any use of the information to criminally investigate or prosecute any alcohol or drug abuse patient.[facility] HospitalIn the event this information is protected by the Federal Confidentiality of Alcohol and Drug Abuse Patient Records regulations: The Federal rules restrict any use of the information to criminally investigate or prosecute any alcohol or drug abuse patient.[facility] HospitalIn the event this information is protected by the Federal Confidentiality of Alcohol and Drug Abuse Patient Records regulations: The Federal rules restrict any use of the information to criminally investigate or prosecute any alcohol or drug abuse patient.[facility] HospitalIn the event this information is protected by the Federal Confidentiality of Alcohol and Drug Abuse Patient Records regulations: The Federal rules restrict any use of the information to criminally investigate or prosecute any alcohol or drug abuse patient.[facility] HospitalIn the event this information is protected by the Federal Confidentiality of Alcohol and Drug Abuse Patient Records regulations: The Federal rules restrict any use of the information to criminally investigate or prosecute any alcohol or drug abuse patient.[facility] HospitalIn the event this information is protected by the Federal Confidentiality of Alcohol and Drug Abuse Patient Records regulations: The Federal rules restrict any use of the information to criminally investigate or prosecute any alcohol or drug abuse patient.[facility] HospitalIn the event this information is protected by the Federal Confidentiality of Alcohol and Drug Abuse Patient Records regulations: The Federal rules restrict any use of the information to criminally investigate or prosecute any alcohol or drug abuse patient.[facility] HospitalIn the event this information is protected by the Federal Confidentiality of Alcohol and Drug Abuse Patient Records regulations: The Federal rules restrict any use of the information to criminally investigate or prosecute any alcohol or drug abuse patient.[facility] HospitalIn the event this information is protected by the Federal Confidentiality of Alcohol and Drug Abuse Patient Records regulations: The Federal rules restrict any use of the information to criminally investigate or prosecute any alcohol or drug abuse patient.[facility] HospitalIn the event this information is protected by the Federal Confidentiality of Alcohol and Drug Abuse Patient Records regulations: The Federal rules restrict any use of the information to criminally investigate or prosecute any alcohol or drug abuse patient.[facility] HospitalIn the event this information is protected by the Federal Confidentiality of Alcohol and Drug Abuse Patient Records regulations: The Federal rules restrict any use of the information to criminally investigate or prosecute any alcohol or drug abuse patient.[facility] HospitalIn the event this information is protected by the Federal Confidentiality of Alcohol and Drug Abuse Patient Records regulations: The Federal rules restrict any use of the information to criminally investigate or prosecute any alcohol or drug abuse patient.[facility] HospitalIn the event this information is protected by the Federal Confidentiality of Alcohol and Drug Abuse Patient Records regulations: The Federal rules restrict any use of the information to criminally investigate or prosecute any alcohol or drug abuse patient.[facility] HospitalIn the event this information is protected by the Federal Confidentiality of Alcohol and Drug Abuse Patient Records regulations: The Federal rules restrict any use of the information to criminally investigate or prosecute any alcohol or drug abuse patient.[facility] HospitalIn the event this information is protected by the Federal Confidentiality of Alcohol and Drug Abuse Patient Records regulations: The Federal rules restrict any use of the information to criminally investigate or prosecute any alcohol or drug abuse patient.[facility] HospitalIn the event this information is protected by the Federal Confidentiality of Alcohol and Drug Abuse Patient Records regulations: The Federal rules restrict any use of the information to criminally investigate or prosecute any alcohol or drug abuse patient.[facility] HospitalIn the event this information is protected by the Federal Confidentiality of Alcohol and Drug Abuse Patient Records regulations: The Federal rules restrict any use of the information to criminally investigate or prosecute any alcohol or drug abuse patient.[facility] HospitalIn the event this information is protected by the Federal Confidentiality of Alcohol and Drug Abuse Patient Records regulations: The Federal rules restrict any use of the information to criminally investigate or prosecute any alcohol or drug abuse patient.[facility] HospitalIn the event this information is protected by the Federal Confidentiality of Alcohol and Drug Abuse Patient Records regulations: The Federal rules restrict any use of the information to criminally investigate or prosecute any alcohol or drug abuse patient.[facility] HospitalIn the event this information is protected by the Federal Confidentiality of Alcohol and Drug Abuse Patient Records regulations: The Federal rules restrict any use of the information to criminally investigate or prosecute any alcohol or drug abuse patient.[facility] HospitalIn the event this information is protected by the Federal Confidentiality of Alcohol and Drug Abuse Patient Records regulations: The Federal rules restrict any use of the information to criminally investigate or prosecute any alcohol or drug abuse patient.[facility] HospitalIn the event this information is protected by the Federal Confidentiality of Alcohol and Drug Abuse Patient Records regulations: The Federal rules restrict any use of the information to criminally investigate or prosecute any alcohol or drug abuse patient.[facility] HospitalIn the event this information is protected by the Federal Confidentiality of Alcohol and Drug Abuse Patient Records regulations: The Federal rules restrict any use of the information to criminally investigate or prosecute any alcohol or drug abuse patient.[facility] HospitalIn the event this information is protected by the Federal Confidentiality of Alcohol and Drug Abuse Patient Records regulations: The Federal rules restrict any use of the information to criminally investigate or prosecute any alcohol or drug abuse patient.[facility] HospitalIn the event this information is protected by the Federal Confidentiality of Alcohol and Drug Abuse Patient Records regulations: The Federal rules restrict any use of the information to criminally investigate or prosecute any alcohol or drug abuse patient.[facility] HospitalIn the event this information is protected by the Federal Confidentiality of Alcohol and Drug Abuse Patient Records regulations: The Federal rules restrict any use of the information to criminally investigate or prosecute any alcohol or drug abuse patient.[facility] HospitalIn the event this information is protected by the Federal Confidentiality of Alcohol and Drug Abuse Patient Records regulations: The Federal rules restrict any use of the information to criminally investigate or prosecute any alcohol or drug abuse patient.[facility] HospitalIn the event this information is protected by the Federal Confidentiality of Alcohol and Drug Abuse Patient Records regulations: The Federal rules restrict any use of the information to criminally investigate or prosecute any alcohol or drug abuse patient.[facility] HospitalIn the event this information is protected by the Federal Confidentiality of Alcohol and Drug Abuse Patient Records regulations: The Federal rules restrict any use of the information to criminally investigate or prosecute any alcohol or drug abuse patient.[facility] HospitalIn the event this information is protected by the Federal Confidentiality of Alcohol and Drug Abuse Patient Records regulations: The Federal rules restrict any use of the information to criminally investigate or prosecute any alcohol or drug abuse patient.[facility] HospitalIn the event this information is protected by the Federal Confidentiality of Alcohol and Drug Abuse Patient Records regulations: The Federal rules restrict any use of the information to criminally investigate or prosecute any alcohol or drug abuse patient.[facility] HospitalIn the event this information is protected by the Federal Confidentiality of Alcohol and Drug Abuse Patient Records regulations: The Federal rules restrict any use of the information to criminally investigate or prosecute any alcohol or drug abuse patient.[facility] HospitalIn the event this information is protected by the Federal Confidentiality of Alcohol and Drug Abuse Patient Records regulations: The Federal rules restrict any use of the information to criminally investigate or prosecute any alcohol or drug abuse patient.[facility] HospitalIn the event this information is protected by the Federal Confidentiality of Alcohol and Drug Abuse Patient Records regulations: The Federal rules restrict any use of the information to criminally investigate or prosecute any alcohol or drug abuse patient.[facility] HospitalIn the event this information is protected by the Federal Confidentiality of Alcohol and Drug Abuse Patient Records regulations: The Federal rules restrict any use of the information to criminally investigate or prosecute any alcohol or drug abuse patient.[facility] HospitalIn the event this information is protected by the Federal Confidentiality of Alcohol and Drug Abuse Patient Records regulations: The Federal rules restrict any use of the information to criminally investigate or prosecute any alcohol or drug abuse patient.[facility] HospitalIn the event this information is protected by the Federal Confidentiality of Alcohol and Drug Abuse Patient Records regulations: The Federal rules restrict any use of the information to criminally investigate or prosecute any alcohol or drug abuse patient.[facility] HospitalIn the event this information is protected by the Federal Confidentiality of Alcohol and Drug Abuse Patient Records regulations: The Federal rules restrict any use of the information to criminally investigate or prosecute any alcohol or drug abuse patient.[facility] HospitalIn the event this information is protected by the Federal Confidentiality of Alcohol and Drug Abuse Patient Records regulations: The Federal rules restrict any use of the information to criminally investigate or prosecute any alcohol or drug abuse patient.[facility] HospitalIn the event this information is protected by the Federal Confidentiality of Alcohol and Drug Abuse Patient Records regulations: The Federal rules restrict any use of the information to criminally investigate or prosecute any alcohol or drug abuse patient.[facility] HospitalIn the event this information is protected by the Federal Confidentiality of Alcohol and Drug Abuse Patient Records regulations: The Federal rules restrict any use of the information to criminally investigate or prosecute any alcohol or drug abuse patient.[facility] HospitalIn the event this information is protected by the Federal Confidentiality of Alcohol and Drug Abuse Patient Records regulations: The Federal rules restrict any use of the information to criminally investigate or prosecute any alcohol or drug abuse patient.[facility] HospitalIn the event this information is protected by the Federal Confidentiality of Alcohol and Drug Abuse Patient Records regulations: The Federal rules restrict any use of the information to criminally investigate or prosecute any alcohol or drug abuse patient.[facility] HospitalIn the event this information is protected by the Federal Confidentiality of Alcohol and Drug Abuse Patient Records regulations: The Federal rules restrict any use of the information to criminally investigate or prosecute any alcohol or drug abuse patient.[facility]In the event this information is protected by the Federal Confidentiality of Alcohol and Drug Abuse Patient Records regulations: The Federal rules restrict any use of the information to criminally investigate or prosecute any alcohol or drug abuse patient.[facility] HospitalIn the event this information is protected by the Federal Confidentiality of Alcohol and Drug Abuse Patient Records regulations: The Federal rules restrict any use of the information to criminally investigate or prosecute any alcohol or drug abuse patient.[facility] HospitalIn the event this information is protected by the Federal Confidentiality of Alcohol and Drug Abuse Patient Records regulations: The Federal rules restrict any use of the information to criminally investigate or prosecute any alcohol or drug abuse patient.[facility] HospitalIn the event this information is protected by the Federal Confidentiality of Alcohol and Drug Abuse Patient Records regulations: The Federal rules restrict any use of the information to criminally investigate or prosecute any alcohol or drug abuse patient.[facility] HospitalIn the event this information is protected by the Federal Confidentiality of Alcohol and Drug Abuse Patient Records regulations: The Federal rules restrict any use of the information to criminally investigate or prosecute any alcohol or drug abuse patient.[facility] HospitalIn the event this information is protected by the Federal Confidentiality of Alcohol and Drug Abuse Patient Records regulations: The Federal rules restrict any use of the information to criminally investigate or prosecute any alcohol or drug abuse patient.[facility] HospitalIn the event this information is protected by the Federal Confidentiality of Alcohol and Drug Abuse Patient Records regulations: The Federal rules restrict any use of the information to criminally investigate or prosecute any alcohol or drug abuse patient.[facility] HospitalIn the event this information is protected by the Federal Confidentiality of Alcohol and Drug Abuse Patient Records regulations: The Federal rules restrict any use of the information to criminally investigate or prosecute any alcohol or drug abuse patient.[facility] HospitalIn the event this information is protected by the Federal Confidentiality of Alcohol and Drug Abuse Patient Records regulations: The Federal rules restrict any use of the information to criminally investigate or prosecute any alcohol or drug abuse patient.[facility] HospitalIn the event this information is protected by the Federal Confidentiality of Alcohol and Drug Abuse Patient Records regulations: The Federal rules restrict any use of the information to criminally investigate or prosecute any alcohol or drug abuse patient.[facility] HospitalIn the event this information is protected by the Federal Confidentiality of Alcohol and Drug Abuse Patient Records regulations: The Federal rules restrict any use of the information to criminally investigate or prosecute any alcohol or drug abuse patient.[facility] HospitalIn the event this information is protected by the Federal Confidentiality of Alcohol and Drug Abuse Patient Records regulations: The Federal rules restrict any use of the information to criminally investigate or prosecute any alcohol or drug abuse patient.[facility] HospitalIn the event this information is protected by the Federal Confidentiality of Alcohol and Drug Abuse Patient Records regulations: The Federal rules restrict any use of the information to criminally investigate or prosecute any alcohol or drug abuse patient.[facility] HospitalIn the event this information is protected by the Federal Confidentiality of Alcohol and Drug Abuse Patient Records regulations: The Federal rules restrict any use of the information to criminally investigate or prosecute any alcohol or drug abuse patient.[facility] HospitalIn the event this information is protected by the Federal Confidentiality of Alcohol and Drug Abuse Patient Records regulations: The Federal rules restrict any use of the information to criminally investigate or prosecute any alcohol or drug abuse patient.[facility] HospitalIn the event this information is protected by the Federal Confidentiality of Alcohol and Drug Abuse Patient Records regulations: The Federal rules restrict any use of the information to criminally investigate or prosecute any alcohol or drug abuse patient.[facility] HospitalIn the event this information is protected by the Federal Confidentiality of Alcohol and Drug Abuse Patient Records regulations: The Federal rules restrict any use of the information to criminally investigate or prosecute any alcohol or drug abuse patient.[facility] HospitalIn the event this information is protected by the Federal Confidentiality of Alcohol and Drug Abuse Patient Records regulations: The Federal rules restrict any use of the information to criminally investigate or prosecute any alcohol or drug abuse patient.[facility] HospitalIn the event this information is protected by the Federal Confidentiality of Alcohol and Drug Abuse Patient Records regulations: The Federal rules restrict any use of the information to criminally investigate or prosecute any alcohol or drug abuse patient.[facility] HospitalIn the event this information is protected by the Federal Confidentiality of Alcohol and Drug Abuse Patient Records regulations: The Federal rules restrict any use of the information to criminally investigate or prosecute any alcohol or drug abuse patient.[facility] HospitalIn the event this information is protected by the Federal Confidentiality of Alcohol and Drug Abuse Patient Records regulations: The Federal rules restrict any use of the information to criminally investigate or prosecute any alcohol or drug abuse patient.[facility] HospitalIn the event this information is protected by the Federal Confidentiality of Alcohol and Drug Abuse Patient Records regulations: The Federal rules restrict any use of the information to criminally investigate or prosecute any alcohol or drug abuse patient.[facility]In the event this information is protected by the Federal Confidentiality of Alcohol and Drug Abuse Patient Records regulations: The Federal rules restrict any use of the information to criminally investigate or prosecute any alcohol or drug abuse patient.[facility] HospitalIn the event this information is protected by the Federal Confidentiality of Alcohol and Drug Abuse Patient Records regulations: The Federal rules restrict any use of the information to criminally investigate or prosecute any alcohol or drug abuse patient.[facility] HospitalIn the event this information is protected by the Federal Confidentiality of Alcohol and Drug Abuse Patient Records regulations: The Federal rules restrict any use of the information to criminally investigate or prosecute any alcohol or drug abuse patient.[facility] HospitalIn the event this information is protected by the Federal Confidentiality of Alcohol and Drug Abuse Patient Records regulations: The Federal rules restrict any use of the information to criminally investigate or prosecute any alcohol or drug abuse patient.[facility] HospitalIn the event this information is protected by the Federal Confidentiality of Alcohol and Drug Abuse Patient Records regulations: The Federal rules restrict any use of the information to criminally investigate or prosecute any alcohol or drug abuse patient.[facility] HospitalIn the event this information is protected by the Federal Confidentiality of Alcohol and Drug Abuse Patient Records regulations: The Federal rules restrict any use of the information to criminally investigate or prosecute any alcohol or drug abuse patient.[facility] HospitalIn the event this information is protected by the Federal Confidentiality of Alcohol and Drug Abuse Patient Records regulations: The Federal rules restrict any use of the information to criminally investigate or prosecute any alcohol or drug abuse patient.[facility] HospitalIn the event this information is protected by the Federal Confidentiality of Alcohol and Drug Abuse Patient Records regulations: The Federal rules restrict any use of the information to criminally investigate or prosecute any alcohol or drug abuse patient.[facility] HospitalIn the event this information is protected by the Federal Confidentiality of Alcohol and Drug Abuse Patient Records regulations: The Federal rules restrict any use of the information to criminally investigate or prosecute any alcohol or drug abuse patient.[facility] HospitalIn the event this information is protected by the Federal Confidentiality of Alcohol and Drug Abuse Patient Records regulations: The Federal rules restrict any use of the information to criminally investigate or prosecute any alcohol or drug abuse patient.[facility] HospitalIn the event this information is protected by the Federal Confidentiality of Alcohol and Drug Abuse Patient Records regulations: The Federal rules restrict any use of the information to criminally investigate or prosecute any alcohol or drug abuse patient.[facility] HospitalIn the event this information is protected by the Federal Confidentiality of Alcohol and Drug Abuse Patient Records regulations: The Federal rules restrict any use of the information to criminally investigate or prosecute any alcohol or drug abuse patient.[facility] HospitalIn the event this information is protected by the Federal Confidentiality of Alcohol and Drug Abuse Patient Records regulations: The Federal rules restrict any use of the information to criminally investigate or prosecute any alcohol or drug abuse patient.[facility] HospitalIn the event this information is protected by the Federal Confidentiality of Alcohol and Drug Abuse Patient Records regulations: The Federal rules restrict any use of the information to criminally investigate or prosecute any alcohol or drug abuse patient.[facility] HospitalIn the event this information is protected by the Federal Confidentiality of Alcohol and Drug Abuse Patient Records regulations: The Federal rules restrict any use of the information to criminally investigate or prosecute any alcohol or drug abuse patient.[facility] HospitalIn the event this information is protected by the Federal Confidentiality of Alcohol and Drug Abuse Patient Records regulations: The Federal rules restrict any use of the information to criminally investigate or prosecute any alcohol or drug abuse patient.[facility] HospitalIn the event this information is protected by the Federal Confidentiality of Alcohol and Drug Abuse Patient Records regulations: The Federal rules restrict any use of the information to criminally investigate or prosecute any alcohol or drug abuse patient.[facility] HospitalIn the event this information is protected by the Federal Confidentiality of Alcohol and Drug Abuse Patient Records regulations: The Federal rules restrict any use of the information to criminally investigate or prosecute any alcohol or drug abuse patient.[facility] HospitalIn the event this information is protected by the Federal Confidentiality of Alcohol and Drug Abuse Patient Records regulations: The Federal rules restrict any use of the information to criminally investigate or prosecute any alcohol or drug abuse patient.[facility] HospitalIn the event this information is protected by the Federal Confidentiality of Alcohol and Drug Abuse Patient Records regulations: The Federal rules restrict any use of the information to criminally investigate or prosecute any alcohol or drug abuse patient.[facility] HospitalIn the event this information is protected by the Federal Confidentiality of Alcohol and Drug Abuse Patient Records regulations: The Federal rules restrict any use of the information to criminally investigate or prosecute any alcohol or drug abuse patient.[facility] HospitalIn the event this information is protected by the Federal Confidentiality of Alcohol and Drug Abuse Patient Records regulations: The Federal rules restrict any use of the information to criminally investigate or prosecute any alcohol or drug abuse patient.[facility] HospitalIn the event this information is protected by the Federal Confidentiality of Alcohol and Drug Abuse Patient Records regulations: The Federal rules restrict any use of the information to criminally investigate or prosecute any alcohol or drug abuse patient.[facility] HospitalIn the event this information is protected by the Federal Confidentiality of Alcohol and Drug Abuse Patient Records regulations: The Federal rules restrict any use of the information to criminally investigate or prosecute any alcohol or drug abuse patient.[facility] HospitalIn the event this information is protected by the Federal Confidentiality of Alcohol and Drug Abuse Patient Records regulations: The Federal rules restrict any use of the information to criminally investigate or prosecute any alcohol or drug abuse patient.[facility] HospitalIn the event this information is protected by the Federal Confidentiality of Alcohol and Drug Abuse Patient Records regulations: The Federal rules restrict any use of the information to criminally investigate or prosecute any alcohol or drug abuse patient.[facility] HospitalIn the event this information is protected by the Federal Confidentiality of Alcohol and Drug Abuse Patient Records regulations: The Federal rules restrict any use of the information to criminally investigate or prosecute any alcohol or drug abuse patient.[facility] HospitalIn the event this information is protected by the Federal Confidentiality of Alcohol and Drug Abuse Patient Records regulations: The Federal rules restrict any use of the information to criminally investigate or prosecute any alcohol or drug abuse patient.[facility]In the event this information is protected by the Federal Confidentiality of Alcohol and Drug Abuse Patient Records regulations: The Federal rules restrict any use of the information to criminally investigate or prosecute any alcohol or drug abuse patient.[facility] HospitalIn the event this information is protected by the Federal Confidentiality of Alcohol and Drug Abuse Patient Records regulations: The Federal rules restrict any use of the information to criminally investigate or prosecute any alcohol or drug abuse patient.[facility] HospitalIn the event this information is protected by the Federal Confidentiality of Alcohol and Drug Abuse Patient Records regulations: The Federal rules restrict any use of the information to criminally investigate or prosecute any alcohol or drug abuse patient.[facility] HospitalIn the event this information is protected by the Federal Confidentiality of Alcohol and Drug Abuse Patient Records regulations: The Federal rules restrict any use of the information to criminally investigate or prosecute any alcohol or drug abuse patient.[facility] HospitalIn the event this information is protected by the Federal Confidentiality of Alcohol and Drug Abuse Patient Records regulations: The Federal rules restrict any use of the information to criminally investigate or prosecute any alcohol or drug abuse patient.[facility] HospitalIn the event this information is protected by the Federal Confidentiality of Alcohol and Drug Abuse Patient Records regulations: The Federal rules restrict any use of the information to criminally investigate or prosecute any alcohol or drug abuse patient.[facility] HospitalIn the event this information is protected by the Federal Confidentiality of Alcohol and Drug Abuse Patient Records regulations: The Federal rules restrict any use of the information to criminally investigate or prosecute any alcohol or drug abuse patient.[facility] HospitalIn the event this information is protected by the Federal Confidentiality of Alcohol and Drug Abuse Patient Records regulations: The Federal rules restrict any use of the information to criminally investigate or prosecute any alcohol or drug abuse patient.[facility] HospitalIn the event this information is protected by the Federal Confidentiality of Alcohol and Drug Abuse Patient Records regulations: The Federal rules restrict any use of the information to criminally investigate or prosecute any alcohol or drug abuse patient.[facility] HospitalIn the event this information is protected by the Federal Confidentiality of Alcohol and Drug Abuse Patient Records regulations: The Federal rules restrict any use of the information to criminally investigate or prosecute any alcohol or drug abuse patient.[facility] HospitalIn the event this information is protected by the Federal Confidentiality of Alcohol and Drug Abuse Patient Records regulations: The Federal rules restrict any use of the information to criminally investigate or prosecute any alcohol or drug abuse patient.[facility] HospitalIn the event this information is protected by the Federal Confidentiality of Alcohol and Drug Abuse Patient Records regulations: The Federal rules restrict any use of the information to criminally investigate or prosecute any alcohol or drug abuse patient.[facility] HospitalIn the event this information is protected by the Federal Confidentiality of Alcohol and Drug Abuse Patient Records regulations: The Federal rules restrict any use of the information to criminally investigate or prosecute any alcohol or drug abuse patient.[facility] HospitalIn the event this information is protected by the Federal Confidentiality of Alcohol and Drug Abuse Patient Records regulations: The Federal rules restrict any use of the information to criminally investigate or prosecute any alcohol or drug abuse patient.[facility] HospitalIn the event this information is protected by the Federal Confidentiality of Alcohol and Drug Abuse Patient Records regulations: The Federal rules restrict any use of the information to criminally investigate or prosecute any alcohol or drug abuse patient.[facility] HospitalIn the event this information is protected by the Federal Confidentiality of Alcohol and Drug Abuse Patient Records regulations: The Federal rules restrict any use of the information to criminally investigate or prosecute any alcohol or drug abuse patient.[facility] HospitalIn the event this information is protected by the Federal Confidentiality of Alcohol and Drug Abuse Patient Records regulations: The Federal rules restrict any use of the information to criminally investigate or prosecute any alcohol or drug abuse patient.[facility] HospitalIn the event this information is protected by the Federal Confidentiality of Alcohol and Drug Abuse Patient Records regulations: The Federal rules restrict any use of the information to criminally investigate or prosecute any alcohol or drug abuse patient.[facility] HospitalIn the event this information is protected by the Federal Confidentiality of Alcohol and Drug Abuse Patient Records regulations: The Federal rules restrict any use of the information to criminally investigate or prosecute any alcohol or drug abuse patient.[facility] HospitalIn the event this information is protected by the Federal Confidentiality of Alcohol and Drug Abuse Patient Records regulations: The Federal rules restrict any use of the information to criminally investigate or prosecute any alcohol or drug abuse patient.[facility] HospitalIn the event this information is protected by the Federal Confidentiality of Alcohol and Drug Abuse Patient Records regulations: The Federal rules restrict any use of the information to criminally investigate or prosecute any alcohol or drug abuse patient.[facility] HospitalIn the event this information is protected by the Federal Confidentiality of Alcohol and Drug Abuse Patient Records regulations: The Federal rules restrict any use of the information to criminally investigate or prosecute any alcohol or drug abuse patient.[facility] HospitalIn the event this information is protected by the Federal Confidentiality of Alcohol and Drug Abuse Patient Records regulations: The Federal rules restrict any use of the information to criminally investigate or prosecute any alcohol or drug abuse patient.[facility] HospitalIn the event this information is protected by the Federal Confidentiality of Alcohol and Drug Abuse Patient Records regulations: The Federal rules restrict any use of the information to criminally investigate or prosecute any alcohol or drug abuse patient.[facility] HospitalIn the event this information is protected by the Federal Confidentiality of Alcohol and Drug Abuse Patient Records regulations: The Federal rules restrict any use of the information to criminally investigate or prosecute any alcohol or drug abuse patient.[facility] HospitalIn the event this information is protected by the Federal Confidentiality of Alcohol and Drug Abuse Patient Records regulations: The Federal rules restrict any use of the information to criminally investigate or prosecute any alcohol or drug abuse patient.[facility] HospitalIn the event this information is protected by the Federal Confidentiality of Alcohol and Drug Abuse Patient Records regulations: The Federal rules restrict any use of the information to criminally investigate or prosecute any alcohol or drug abuse patient.[facility] HospitalIn the event this information is protected by the Federal Confidentiality of Alcohol and Drug Abuse Patient Records regulations: The Federal rules restrict any use of the information to criminally investigate or prosecute any alcohol or drug abuse patient.[facility] HospitalIn the event this information is protected by the Federal Confidentiality of Alcohol and Drug Abuse Patient Records regulations: The Federal rules restrict any use of the information to criminally investigate or prosecute any alcohol or drug abuse patient.[facility] HospitalIn the event this information is protected by the Federal Confidentiality of Alcohol and Drug Abuse Patient Records regulations: The Federal rules restrict any use of the information to criminally investigate or prosecute any alcohol or drug abuse patient.[facility] HospitalIn the event this information is protected by the Federal Confidentiality of Alcohol and Drug Abuse Patient Records regulations: The Federal rules restrict any use of the information to criminally investigate or prosecute any alcohol or drug abuse patient.[facility] HospitalIn the event this information is protected by the Federal Confidentiality of Alcohol and Drug Abuse Patient Records regulations: The Federal rules restrict any use of the information to criminally investigate or prosecute any alcohol or drug abuse patient.[facility] HospitalIn the event this information is protected by the Federal Confidentiality of Alcohol and Drug Abuse Patient Records regulations: The Federal rules restrict any use of the information to criminally investigate or prosecute any alcohol or drug abuse patient.[facility] HospitalIn the event this information is protected by the Federal Confidentiality of Alcohol and Drug Abuse Patient Records regulations: The Federal rules restrict any use of the information to criminally investigate or prosecute any alcohol or drug abuse patient.[facility] HospitalIn the event this information is protected by the Federal Confidentiality of Alcohol and Drug Abuse Patient Records regulations: The Federal rules restrict any use of the information to criminally investigate or prosecute any alcohol or drug abuse patient.[facility] HospitalIn the event this information is protected by the Federal Confidentiality of Alcohol and Drug Abuse Patient Records regulations: The Federal rules restrict any use of the information to criminally investigate or prosecute any alcohol or drug abuse patient.[facility] HospitalIn the event this information is protected by the Federal Confidentiality of Alcohol and Drug Abuse Patient Records regulations: The Federal rules restrict any use of the information to criminally investigate or prosecute any alcohol or drug abuse patient.[facility] HospitalIn the event this information is protected by the Federal Confidentiality of Alcohol and Drug Abuse Patient Records regulations: The Federal rules restrict any use of the information to criminally investigate or prosecute any alcohol or drug abuse patient.[facility] HospitalIn the event this information is protected by the Federal Confidentiality of Alcohol and Drug Abuse Patient Records regulations: The Federal rules restrict any use of the information to criminally investigate or prosecute any alcohol or drug abuse patient.[facility] HospitalIn the event this information is protected by the Federal Confidentiality of Alcohol and Drug Abuse Patient Records regulations: The Federal rules restrict any use of the information to criminally investigate or prosecute any alcohol or drug abuse patient.[facility] HospitalIn the event this information is protected by the Federal Confidentiality of Alcohol and Drug Abuse Patient Records regulations: The Federal rules restrict any use of the information to criminally investigate or prosecute any alcohol or drug abuse patient.[facility] HospitalIn the event this information is protected by the Federal Confidentiality of Alcohol and Drug Abuse Patient Records regulations: The Federal rules restrict any use of the information to criminally investigate or prosecute any alcohol or drug abuse patient.[facility] HospitalIn the event this information is protected by the Federal Confidentiality of Alcohol and Drug Abuse Patient Records regulations: The Federal rules restrict any use of the information to criminally investigate or prosecute any alcohol or drug abuse patient.[facility] HospitalIn the event this information is protected by the Federal Confidentiality of Alcohol and Drug Abuse Patient Records regulations: The Federal rules restrict any use of the information to criminally investigate or prosecute any alcohol or drug abuse patient.[facility] HospitalIn the event this information is protected by the Federal Confidentiality of Alcohol and Drug Abuse Patient Records regulations: The Federal rules restrict any use of the information to criminally investigate or prosecute any alcohol or drug abuse patient.[facility] HospitalIn the event this information is protected by the Federal Confidentiality of Alcohol and Drug Abuse Patient Records regulations: The Federal rules restrict any use of the information to criminally investigate or prosecute any alcohol or drug abuse patient.[facility] HospitalIn the event this information is protected by the Federal Confidentiality of Alcohol and Drug Abuse Patient Records regulations: The Federal rules restrict any use of the information to criminally investigate or prosecute any alcohol or drug abuse patient.[facility] HospitalIn the event this information is protected by the Federal Confidentiality of Alcohol and Drug Abuse Patient Records regulations: The Federal rules restrict any use of the information to criminally investigate or prosecute any alcohol or drug abuse patient.[facility] HospitalIn the event this information is protected by the Federal Confidentiality of Alcohol and Drug Abuse Patient Records regulations: The Federal rules restrict any use of the information to criminally investigate or prosecute any alcohol or drug abuse patient.[facility] HospitalIn the event this information is protected by the Federal Confidentiality of Alcohol and Drug Abuse Patient Records regulations: The Federal rules restrict any use of the information to criminally investigate or prosecute any alcohol or drug abuse patient.[facility]In the event this information is protected by the Federal Confidentiality of Alcohol and Drug Abuse Patient Records regulations: The Federal rules restrict any use of the information to criminally investigate or prosecute any alcohol or drug abuse patient.[facility] HospitalIn the event this information is protected by the Federal Confidentiality of Alcohol and Drug Abuse Patient Records regulations: The Federal rules restrict any use of the information to criminally investigate or prosecute any alcohol or drug abuse patient.[facility] HospitalIn the event this information is protected by the Federal Confidentiality of Alcohol and Drug Abuse Patient Records regulations: The Federal rules restrict any use of the information to criminally investigate or prosecute any alcohol or drug abuse patient.[facility]In the event this information is protected by the Federal Confidentiality of Alcohol and Drug Abuse Patient Records regulations: The Federal rules restrict any use of the information to criminally investigate or prosecute any alcohol or drug abuse patient.[facility]In the event this information is protected by the Federal Confidentiality of Alcohol and Drug Abuse Patient Records regulations: The Federal rules restrict any use of the information to criminally investigate or prosecute any alcohol or drug abuse patient.[facility] HospitalIn the event this information is protected by the Federal Confidentiality of Alcohol and Drug Abuse Patient Records regulations: The Federal rules restrict any use of the information to criminally investigate or prosecute any alcohol or drug abuse patient.[facility]In the event this information is protected by the Federal Confidentiality of Alcohol and Drug Abuse Patient Records regulations: The Federal rules restrict any use of the information to criminally investigate or prosecute any alcohol or drug abuse patient.[facility]In the event this information is protected by the Federal Confidentiality of Alcohol and Drug Abuse Patient Records regulations: The Federal rules restrict any use of the information to criminally investigate or prosecute any alcohol or drug abuse patient.[facility] HospitalIn the event this information is protected by the Federal Confidentiality of Alcohol and Drug Abuse Patient Records regulations: The Federal rules restrict any use of the information to criminally investigate or prosecute any alcohol or drug abuse patient.[facility] HospitalIn the event this information is protected by the Federal Confidentiality of Alcohol and Drug Abuse Patient Records regulations: The Federal rules restrict any use of the information to criminally investigate or prosecute any alcohol or drug abuse patient.[facility] HospitalIn the event this information is protected by the Federal Confidentiality of Alcohol and Drug Abuse Patient Records regulations: The Federal rules restrict any use of the information to criminally investigate or prosecute any alcohol or drug abuse patient.[facility] Hospital[facility] the event this information is protected by the Federal Confidentiality of Alcohol and Drug Abuse Patient Records regulations: The Federal rules restrict any use of the information to criminally investigate or prosecute any alcohol or drug abuse patient.[facility] HospitalIn the event this information is protected by the Federal Confidentiality of Alcohol and Drug Abuse Patient Records regulations: The Federal rules restrict any use of the information to criminally investigate or prosecute any alcohol or drug abuse patient.[facility] HospitalIn the event this information is protected by the Federal Confidentiality of Alcohol and Drug Abuse Patient Records regulations: The Federal rules restrict any use of the information to criminally investigate or prosecute any alcohol or drug abuse patient.[facility] HospitalIn the event this information is protected by the Federal Confidentiality of Alcohol and Drug Abuse Patient Records regulations: The Federal rules restrict any use of the information to criminally investigate or prosecute any alcohol or drug abuse patient.[facility] HospitalIn the event this information is protected by the Federal Confidentiality of Alcohol and Drug Abuse Patient Records regulations: The Federal rules restrict any use of the information to criminally investigate or prosecute any alcohol or drug abuse patient.[facility] HospitalIn the event this information is protected by the Federal Confidentiality of Alcohol and Drug Abuse Patient Records regulations: The Federal rules restrict any use of the information to criminally investigate or prosecute any alcohol or drug abuse patient.[facility] HospitalIn the event this information is protected by the Federal Confidentiality of Alcohol and Drug Abuse Patient Records regulations: The Federal rules restrict any use of the information to criminally investigate or prosecute any alcohol or drug abuse patient.[facility] HospitalIn the event this information is protected by the Federal Confidentiality of Alcohol and Drug Abuse Patient Records regulations: The Federal rules restrict any use of the information to criminally investigate or prosecute any alcohol or drug abuse patient.[facility] HospitalIn the event this information is protected by the Federal Confidentiality of Alcohol and Drug Abuse Patient Records regulations: The Federal rules restrict any use of the information to criminally investigate or prosecute any alcohol or drug abuse patient.[facility] Care Teams (unrecognized sec tion and content) Team Status: Active Member Role Status Dates Dr. Mei Cummins MD Primary Care Provider Active Team Status: Active Member Role Status Dates Dr. Mei Cummins MD Primary Care Provider Active Start: April 13, 2024 Rosaalee Garcia PSYCHOMETRIC EXAMINER, PSYCHOMETRIC EXAMINER-C Attending Provider Active Start: April 13, 2024 Rosaalee Rossindell PSYCHOMETRIC EXAMINER, PSYCHOMETRIC EXAMINER-C Referring Provider Active Start: April 13, 2024 Rosa Rossindell PSYCHOMETRIC EXAMINER, PSYCHOMETRIC EXAMINER-C Other Provider Active Start: April 13, 2024 Team Status: Inactive Member Role Status Dates Dr. Mei Cummins MD Primary Care Provider Active Start: April 27, 2024 End: April 29, 2024 Rosa Martinezell PSYCHOMETRIC EXAMINER, PSYCHOMETRIC EXAMINER-C Attending Provider Active Start: April 27, 2024 End: April 29, 2024 Dr. Juan Carlos Viveros DPM Referring Provider Active Start: April 27, 2024 End: April 29, 2024 Team Status: Active Member Role Status Dates Dr. Mei Cummins MD Primary Care Provider Active Start: April 27, 2024 Rosa Rossindell PSYCHOMETRIC EXAMINER, PSYCHOMETRIC EXAMINER-C Attending Provider Active Start: April 27, 2024 Rosaalee Rossindell PSYCHOMETRIC EXAMINER, PSYCHOMETRIC EXAMINER-C Referring Provider Active Start: April 27, 2024 Rosaalee Rossindell PSYCHOMETRIC EXAMINER, PSYCHOMETRIC EXAMINER-C Other Provider Active Start: April 27, 2024 Team Status: Inactive Member Role Status Dates Dr. Mei Cummins MD Primary Care Provider Active Start: May 11, 2024 End: May 30, 2024 Dr. Juan Carlos Viveros DPM Referring Provider Active Start: May 11, 2024 End: May 30, 2024 Dr. Rasta Mazariegos DPM Attending Provider Active Start: May 11, 2024 End: May 30, 2024 Team Status: Active Member Role Status Dates Dr. Mei Cummins MD Primary Care Provider Active Start: May 11, 2024 Dr. Rasta Mazariegos DPM Other Provider Active St art: May 11, 2024 Rosa Garcia PSYCHOMETRIC EXAMINER, PSYCHOMETRIC EXAMINER-C Attending Provider Active Start: May 11, 2024 Rosa Garcia PSYCHOMETRIC EXAMINER, PSYCHOMETRIC EXAMINER-C Referring Provider Active Start: May 11, 2024 Team Status: Inactive Member Role Status Dates Dr. Mei Cummins MD Primary Care Provider Active Start: May 22, 2024 End: May 24, 2024 Dr. Randy Londono MD Emergency Provider Active Sta rt: May 22, 2024 End: May 24, 2024 Dr. Jacob Suazo , Admit Provider Active Start: May 22, 2024 End: May 24, 2024 Dr. Jacob Suazo , Other Provider Active Start: May 22, 2024 End: May 24, 2024 Dr. Malu Steen , DO Attending Provider Active S tart: May 22, 2024 End: May 24, 2024 Dr. Mei Cortes , Other Provider Active S tart: May 22, 2024 End: May 24, 2024 Team Status: Active Member Role Status Dates Dr. Mei Cummins MD Primary Care Provider Active Start: May 23, 2024 Dr. Randy Londono MD Emergency Provider Active Sta rt: May 23, 2024 Dr. Jacob Suazo , DO Admit Provider Active Start: May 23, 2024 Dr. Jacob Suazo , Other Provider Active Start: May 23, 2024 Dr. Mei Cortes , Attending Provider Active Start: May 23, 2024 Dr. Mei Cortes , DO Other Provider Active S tart: May 23, 2024 Team Status: Active Member Role Status Dates Dr. Mei Cummins MD Primary Care Provider Active Start: May 24, 2024 Dr. Randy Londono MD Emergency Provider Active Sta rt: May 24, 2024 Dr. Jacob Suazo , Admit Provider Active Start: May 24, 2024 Dr. Jacob Suazo , DO Other Provider Active Start: May 24, 2024 Dr. Malu Steen , DO Attending Provider Active S tart: May 24, 2024 Dr. Malu Steen , DO Other Provider Active Start : May 24, 2024 Dr. Mei Cortes DO Other Provider Active S tart: May 24, 2024 Team Status: Inactive Member Role Status Dates Dr. Mei Cummins MD Primary Care Provider Active Start: June 03, 2024 End: June 05, 2024 Dr. Aj Martinez MD Emergency Provider Active Start: June 03, 2024 End: June 05, 2024 Dr. Elizabeth Santamaria MD Admit Provider Active St art: June 03, 2024 End: June 05, 2024 Dr. Elizabeth Santamaria MD Other Provider Active St art: June 03, 2024 End: June 05, 2024 Dr. Jacob Suazo DO Attending Provider Active Start: June 03, 2024 End: June 05, 2024 Team Status: Active Member Role Status Dates Dr. Mei Cummins MD Primary Care Provider Active Start: June 04, 2024 Dr. Aj Martinez MD Emergency Provider Active Start: June 04, 2024 Dr. Elizabeth Santamaria MD Admit Provider Active St art: June 04, 2024 Dr. Elizabeth Santamaria MD Other Provider Active St art: June 04, 2024 Dr. Jacob Suazo DO Attending Provider Active Start: June 04, 2024 Dr. Jacob Suazo DO Other Provider Active Start: June 04, 2024 Team Status: Active Member Role Status Dates Dr. Mei Cummins MD Primary Care Provider Active Start: June 04, 2024 Dr. Aj Martinez MD Emergency Provider Active Start: June 04, 2024 Dr. Elizabeth Santamaria MD Admit Provider Active St art: June 04, 2024 Dr. Elizabeth Santamaria MD Other Provider Active St art: June 04, 2024 Dr. Jacob Suazo DO Referring Provider Active Start: June 04, 2024 Dr. Jacob Suazo DO Other Provider Active Start: June 04, 2024 Dr. Garcia Moreno DO Attending Provider Active Start: June 04, 2024 Team Status: Active Member Role Status Dates Dr. Mei Cummins MD Primary Care Provider Active Start: June 05, 2024 Dr. Aj Martinez MD Emergency Provider Active Start: June 05, 2024 Dr. Elizabeth Santamaria MD Admit Provider Active St art: June 05, 2024 Dr. Elizabeth Santamaria MD Other Provider Active St art: June 05, 2024 Dr. Jacob Suazo DO Attending Provider Active Start: June 05, 2024 Dr. Jacob Suazo DO Other Provider Active Start: June 05, 2024 Team Status: Inactive Member Role Status Dates JAYY Otero Attending Provider Active Start: June 08, 2024 End: June 08, 2024 Dr. Mei Cummins MD Primary Care Provider Active Start: June 08, 2024 End: June 08, 2024 Dr. Mei Cummins MD Referring Provider Active Start: June 08, 2024 End: June 08, 2024 Team Status: Inactive Member Role Status Dates Dr. Mei Cummins MD Primary Care Provider Active Start: June 08, 2024 End: June 08, 2024 JAYY Otero Attending Provider Active Start: June 08, 2024 End: June 08, 2024 JAYY Otero Referring Provider Active Start: June 08, 2024 End: June 08, 2024 Team Status: Inactive Member Role Status Dates Dr. Mei Cummins MD Primary Care Provider Active Start: June 10, 2024 End: June 10, 2024 JAYY Otero Attending Provider Active Start: June 10, 2024 End: June 10, 2024 JAYY Otero Referring Provider Active Start: June 10, 2024 End: June 10, 2024 Team Status: Inactive Member Role Status Dates Dr. Mei Cummins MD Primary Care Provider Active Start: June 13, 2024 End: June 13, 2024 Dr. Mei Cummins MD Referring Provider Active Start: June 13, 2024 End: June 13, 2024 Dr. Garcia Moreno DO Attending Provider Active Start: June 13, 2024 End: June 13, 2024 Team Status: Inactive Member Role Status Dates Dr. Mei Cummins MD Primary Care Provider Active Start: June 13, 2024 End: June 13, 2024 Teresa Garner Attending Provider Active Start : June 13, 2024 End: June 13, 2024 Teresa Garner Referring Provider Active Start : June 13, 2024 End: June 13, 2024 MARY LOU Kent Other Provider Active Start : June 13, 2024 End: June 13, 2024 Team Status: Inactive Member Role Status Dates Dr. Mei Cummins MD Primary Care Provider Active Start: June 22, 2024 End: June 29, 2024 Dr. Juan Carlos Viveros DPM Referring Provider Active Start: June 22, 2024 End: June 29, 2024 Dr. Rasta Mazariegos DPM Attending Provider Active Start: June 22, 2024 End: June 29, 2024 Team Status: Inactive Member Role Status Dates Dr. Mei Cummins MD Primary Care Provider Active Start: June 30, 2024 End: June 30, 2024 Dr. Mei Cummins MD Referring Provider Active Start: June 30, 2024 End: June 30, 2024 JAYY Otero Attending Provider Active Start: June 30, 2024 End: June 30, 2024 Team Status: Inactive Member Role Status Dates Dr. Mei Cummins MD Primary Care Provider Active Start: June 30, 2024 End: June 30, 2024 JAYY Otero Attending Provider Active Start: June 30, 2024 End: June 30, 2024 JAYY Otero Referring Provider Active Start: June 30, 2024 End: June 30, 2024 Team Status: Inactive Member Role Status Dates Dr. Mei Cummins MD Primary Care Provider Active Start: July 27, 2024 End: July 30, 2024 Dr. Juan Carlos Viveros DPM Referring Provider Active Start: July 27, 2024 End: July 30, 2024 Dr. Rasta Mazariegos DPM Attending Provider Active Start: July 27, 2024 End: July 30, 2024 Broadcast Operations Manager Relationship Specialty Start Date End Date Mei Cummins MD [address] [place] [address] PCP - General Family Practice 12/17/16 Anuja Steen MD, [address] [place], [place] [id number] Physician Radiation Oncology 01/26/15 Broadcast Operations Manager Relationship Specialty Start Date End Date Mei Cummins MD [address] [facility] [place] [address] PCP - General Family Practice 12/17/16 Anuja Steen MD, [address] [place] [address] Physician Radiation Oncology 01/26/15 Broadcast Operations Manager Relationship Specialty Start Date End Date Mei Cummins MD [address] [facility] [place] [address] PCP - General Family Practice 12/17/16 Anuja Steen MD, [address] [facility] [place] [address] Physician Radiation Oncology 01/26/15 Broadcast Operations Manager Relationship Specialty Start Date End Date Mei Cummins MD [address] [facility] [place] [address] PCP - General Family Practice 12/17/16 Anuja Steen MD, [address] [facility] [place] [address] Physician Radiation Oncology 01/26/15 Broadcast Operations Manager Relationship Specialty Start Date End Date Mei Cummins MD [address] [facility] [place] [address] PCP - General Family Practice 12/17/16 Anuja Steen MD, [address] [place] [address] Physician Radiation Oncology 01/26/15 Broadcast Operations Manager Relationship Specialty Start Date End Date Mei Cummins MD [address] [facility] [place] [address] PCP - General Family Practice 12/17/16 Anuja Steen MD, [address] [place] [address] Physician Radiation Oncology 01/26/15 Broadcast Operations Manager Relationship Specialty Start Date End Date Mei Cummins MD [address] [facility] [place] [address] PCP - General Family Practice 12/17/16 Anuja Steen MD, [address] [facility] [place] [address] Physician Radiation Oncology 01/26/15 Broadcast Operations Manager Relationship Specialty Start Date End Date Mei Cummins MD [address] [place] [address] PCP - General Family Practice 12/17/16 Anuja Steen MD, [address] [facility] [place] [address] Physician Radiation Oncology 01/26/15 Broadcast Operations Manager Relationship Specialty Start Date End Date Mei Cummins MD [address] [place] [address] PCP - General Family Practice 12/17/16 Anuja Steen MD, MD [address] [place] [address] Physician Radiation Oncology 01/26/15 Broadcast Operations Manager Relationship Specialty Start Date End Date Mei Cummins MD [address] [place] [address] PCP - General Family Practice 12/17/16 Anuja Steen MD, [address] [facility] [place] [address] Physician Radiation Oncology 01/26/15 Broadcast Operations Manager Relationship Specialty Start Date End Date Mei Cummins MD [address] [place] [address] PCP - General Family Medicine 12/17/16 Anuja Steen MD, [address] [place] [address] Physician Radiation Oncology 01/26/15 Broadcast Operations Manager Relationship Specialty Start Date End Date Mei Cummins MD [address] [facility] [place] [address] PCP - General Family Medicine 12/17/16 Anuja Steen MD, [address] [place] [address] Physician Radiation Oncology 01/26/15 Broadcast Operations Manager Relationship Specialty Start Date End Date Mei Cummins MD [address] [facility] [place] [place] [address] PCP - General Family Medicine 12/17/16 Anuja Steen MD, [address] [place] [address] Physician Radiation Oncology 01/26/15 Broadcast Operations Manager Relationship Specialty Start Date End Date Mei Cummins MD [address] [facility] [place] [address] PCP - General Family Medicine 12/17/16 Anuja Steen MD, [address] [place] [address] Physician Radiation Oncology 01/26/15 Broadcast Operations Manager Relationship Specialty Start Date End Date Mei Cummins MD [address] [facility] [place] [address] PCP - General Family Medicine 12/17/16 Anuja Steen MD, [address] [place] [address] Physician Radiation Oncology 01/26/15 Broadcast Operations Manager Relationship Specialty Start Date End Date Mei Cummins MD [address] [facility] [place] [address] PCP - General Family Medicine 12/17/16 Anuja Steen MD, [address] [facility] [place] [address] Physician Radiation Oncology 01/26/15 Broadcast Operations Manager Relationship Specialty Start Date End Date Mei Cummins MD [address] [facility] [place] [address] PCP - General Family Medicine 12/17/16 Anuja Steen MD, [address] [place] [address] Physician Radiation Oncology 01/26/15 Broadcast Operations Manager Relationship Specialty Start Date End Date Mei Cummins MD [address] [facility] [place] [place] [address] PCP - General Family Medicine 12/17/16 Anuja Steen MD, [address] [facility] [place] [address] Physician Radiation Oncology 01/26/15 Broadcast Operations Manager Relationship Specialty Start Date End Date Mei Cummins MD [address] [facility] [place] [place] [address] PCP - General Family Medicine 12/17/16 Anuja Steen MD, [address] [place] [address] Physician Radiation Oncology 01/26/15 Broadcast Operations Manager Relationship Specialty Start Date End Date Mei Cummins MD [address] [facility] [place] [address] PCP - General Family Medicine 12/17/16 Anuja Steen MD, [address] [place] [address] Physician Radiation Oncology 01/26/15 Broadcast Operations Manager Relationship Specialty Start Date End Date Mei Cummins MD [address] [facility] [place] [place] [address] PCP - General Family Medicine 12/17/16 Anuja Steen MD, [address] [place] [address] Physician Radiation Oncology 01/26/15 Broadcast Operations Manager Relationship Specialty Start Date End Date Mei Cummins MD [address] [place] [address] PCP - General Family Medicine 12/17/16 Anuja Steen MD, [address] [place] [address] Physician Radiation Oncology 01/26/15 Broadcast Operations Manager Relationship Specialty Start Date End Date Mei Cummins MD [address] [place] [address] PCP - General Family Medicine 12/17/16 Anuja Steen MD, [address] [address] Physician Radiation Oncology 01/26/15 Broadcast Operations Manager Relationship Specialty Start Date End Date Mei Cummins MD [address] [place] [address] PCP - General Family Medicine 12/17/16 Anuja Steen MD, [address] [place] [address] Physician Radiation Oncology 01/26/15 Broadcast Operations Manager Relationship Specialty Start Date End Date Mei Cummins MD [address] [place] [address] PCP - General Family Medicine 12/17/16 Anuja Steen MD, MD [address] [place] [address] Physician Radiation Oncology 01/26/15 Broadcast Operations Manager Relationship Specialty Start Date End Date Mei Cummins MD [address] [facility] [place] [address] PCP - General Family Medicine 12/17/16 Anuja Steen MD, [address] [place] [address] Physician Radiation Oncology 01/26/15 Team Status: Active Member Role Status Dates Dr. Mei Cummins MD Family Provider Active Dr. Mei Cummins MD Primary Care Provider Active Team Status: Inactive Member Role Status Dates Dr. Mei Cummins MD Primary Care Provider, Referr ing Provider Active Dr. Yong Calvillo DO Attending Provider Active Team Status: Inactive Member Role Status Dates Dr. Mei Cummins MD Primary Care Provider Active Dr. Aaron Hurst MD Attending Provider, Emergency Pro vider Active Team Status: Inactive Member Role Status Dates Dr. Mei Cummins MD Primary Care Provider Active Alethea Garcia , PSYCHOMETRIC EXAMINER-C Attending Provider, Referrin g Provider Active Broadcast Operations Manager Relationship Specialty Start Date End Date Mei Cummins MD [address] [facility] [place] [address] PCP - General Family Medicine 12/17/16 Anuja Steen MD, [address] [place] [address] Physician Radiation Oncology 01/26/15 Broadcast Operations Manager Relationship Specialty Start Date End Date Mei Cummins MD [address] [facility] [place] [address] PCP - General Family Medicine 12/17/16 Anuja Steen MD, [address] [place] [address] Physician Radiation Oncology 01/26/15 Broadcast Operations Manager Relationship Specialty Start Date End Date Mei Cummins MD [address] [facility] [place] [place] [address] PCP - General Family Medicine 12/17/16 Anuja Steen MD, [address] [place] [address] Physician Radiation Oncology 01/26/15 Broadcast Operations Manager Relationship Specialty Start Date End Date Mei Cummins MD [address] [place] [address] PCP - General Family Medicine 12/17/16 Anuja Steen MD, [address] [place] [address] Physician Radiation Oncology 01/26/15 Broadcast Operations Manager Relationship Specialty Start Date End Date Mei Cummins MD [address] [facility] [place] [place] [address] PCP - General Family Medicine 12/17/16 Anuja Steen MD, [address] [address] Physician Radiation Oncology 01/26/15 Broadcast Operations Manager Relationship Specialty Start Date End Date Mei Cummins MD [address] [facility] [place] [address] PCP - General Family Medicine 12/17/16 Anuja Steen MD, [address] [place] [address] Physician Radiation Oncology 01/26/15 Broadcast Operations Manager Relationship Specialty Start Date End Date Mei Cummins MD [address] [place] [address] PCP - General Family Medicine 12/17/16 Anuja Steen MD, [address] [place] [address] Physician Radiation Oncology 01/26/15 Broadcast Operations Manager Relationship Specialty Start Date End Date Mei Cummins MD [address] [facility] [place] [address] PCP - General Family Medicine 12/17/16 Anuja Steen MD, [address] [place] [address] Physician Radiation Oncology 01/26/15 Broadcast Operations Manager Relationship Specialty Start Date End Date Mei Cummins MD [address] [facility] [place] [place] [address] PCP - General Family Medicine 12/17/16 Anuja Steen MD, [address] [place] [address] Physician Radiation Oncology 01/26/15 Broadcast Operations Manager Relationship Specialty Start Date End Date Mei Cummins MD [address] [facility] [place] [place] [address] PCP - General Family Medicine 12/17/16 Anuja Steen MD, [address] [place] [address] Physician Radiation Oncology 01/26/15 Broadcast Operations Manager Relationship Specialty Start Date End Date Mei Cummins MD [address] [facility] [place] [place] [address] PCP - General Family Medicine 12/17/16 Anuja Steen MD, [address] [place] [address] Physician Radiation Oncology 01/26/15 Broadcast Operations Manager Relationship Specialty Start Date End Date Mei Cummins MD [address] [facility] [place] [address] PCP - General Family Medicine 12/17/16 Anuja Steen MD, MD [address] [place] [address] Physician Radiation Oncology 01/26/15 Broadcast Operations Manager Relationship Specialty Start Date End Date Mei Cummins MD [address] [facility] [place] [address] PCP - General Family Medicine 12/17/16 Anuja Steen MD, [address] [place] [address] Physician Radiation Oncology 01/26/15 Broadcast Operations Manager Relationship Specialty Start Date End Date Mei Cummins MD [address] [facility] [place] [address] PCP - General Family Medicine 12/17/16 Anuja Steen MD, MD [address] [place] [address] Physician Radiation Oncology 01/26/15 Broadcast Operations Manager Relationship Specialty Start Date End Date Mei Cummins MD [address] [place] [address] PCP - General Family Medicine 12/17/16 Anuja Steen MD, MD [address] [facility] [place] [address] Physician Radiation Oncology 01/26/15 Broadcast Operations Manager Relationship Specialty Start Date End Date Mei Cummins MD [address] [place] [address] PCP - General Family Medicine 12/17/16 Anuja Steen MD, MD [address] [place] [address] Physician Radiation Oncology 01/26/15 Broadcast Operations Manager Relationship Specialty Start Date End Date Mei Cummins MD [address] [place] [address] PCP - General Family Medicine 12/17/16 Anuja Steen MD, MD [address] [facility] [place] [address] Physician Radiation Oncology 01/26/15 Broadcast Operations Manager Relationship Specialty Start Date End Date Mei Cummins MD [address] [place] [address] PCP - General Family Medicine 12/17/16 Anuja Steen MD, MD [address] [place] [address] Physician Radiation Oncology 01/26/15 Broadcast Operations Manager Relationship Specialty Start Date End Date Mei Cummins MD [address] [place] [address] PCP - General Family Medicine 12/17/16 Anuja Steen MD, MD [address] [place] [address] Physician Radiation Oncology 01/26/15 Team Status: Inactive Member Role Status Dates Dr. Mei Cummins MD Primary Care Provider Active Dr. Cristi Godinez MD Emergency Provider Active Broadcast Operations Manager Relationship Specialty Start Date End Date Mei Cummins MD [address] [place] [address] PCP - General Family Medicine 12/17/16 Anuja Steen MD, [address] [address] Physician Radiation Oncology 01/26/15 Broadcast Operations Manager Relationship Specialty Start Date End Date Mei Cummins MD [address] [place] [address] PCP - General Family Medicine 12/17/16 Anuja Steen MD, [address] [place] [address] Physician Radiation Oncology 01/26/15 Broadcast Operations Manager Relationship Specialty Start Date End Date Mei Cummins MD [address] [place] [address] PCP - General Family Medicine 12/17/16 Anuja Steen MD, [address] [place] [address] Physician Radiation Oncology 01/26/15 Broadcast Operations Manager Relationship Specialty Start Date End Date Mei Cummins MD [address] [place] [address] PCP - General Family Medicine 12/17/16 Anuja Steen MD, [address] [place] [address] Physician Radiation Oncology 01/26/15 Broadcast Operations Manager Relationship Specialty Start Date End Date Mei Cummins MD [address] [place], [place] 855034 [phone] PCP - General Family Medicine 12/17/16 Anuja Steen MD, [address] [place] [address] Physician Radiation Oncology 01/26/15 Broadcast Operations Manager Relationship Specialty Start Date End Date Mei Cummins MD [address] [place] [address] PCP - General Family Medicine 12/17/16 Anuja Steen MD, [address] [place] [address] Physician Radiation Oncology 01/26/15 Broadcast Operations Manager Relationship Specialty Start Date End Date Mei Cummins MD [address] [place] [address] PCP - General Family Medicine 12/17/16 Anuja Steen MD, [address] [place] [address] Physician Radiation Oncology 01/26/15 Broadcast Operations Manager Relationship Specialty Start Date End Date Mei Cummins MD [address] [place] [address] PCP - General Family Medicine 12/17/16 Anuja Steen MD, MD [address] [place] [address] Physician Radiation Oncology 01/26/15 Broadcast Operations Manager Relationship Specialty Start Date End Date Mei Cummins MD [address] [address] PCP - General Family Medicine 12/17/16 Anuja Steen MD, MD [address] [place] [address] Physician Radiation Oncology 01/26/15 Team Status: Inactive Member Role Status Dates Dr. Mei Cummins MD Primary Care Provider Active Dr. Salazar Meraz DO Attending Provider, Referring Prov ider Active Team Status: Inactive Member Role Status Dates Dr. Mei Cummins MD Primary Care Provider Active Dr. Cristi Godinez MD Attending Provider, Emergency Provider Active Team Status: Active Member Role Status Dates Dr. Mei Cummins MD Primary Care Provider Active Dr. Bruno Catalan MD Attending Provider, Referr ing Provider Active Team Status: Active Member Role Status Dates Dr. Mei Cummins MD Primary Care Provider Active Dr. Randy Londono MD Emergency Provider Active Dr. Jacob Suazo DO Admit Provider, Attending Provider Active Team Status: Active Member Role Status Dates Dr. Mei Cummins MD Primary Care Provider Active Dr. Randy Londono MD Emergency Provider Active Dr. Jacob Suazo DO Admit Provi anthony, Attending Provider, Other Provider Active Team Status: Active Member Role Status Dates Dr. Mei Cummins MD Primary Care Provider Active Dr. Randy Londono MD Emergency Provider Active Dr. Jacob Suazo DO Admit Provider, Other Pro vider Active Dr. Sushila Rivers MD Attending Provider Active Team Status: Inactive Member Role Status Dates Dr. Mei Cummins MD Primary Care Provider Active Dr. Bruno Catalan MD Attending Provider, Referr ing Provider Active Team Status: Active Member Role Status Dates Dr. Mei Cummins MD Primary Care Provider Active Dr. Randy Londono MD Emergency Provider Active Dr. Jacob Suazo DO Admit Provider, Other Pro vider Active Dr. Martin Zaragoza MD Attending Provider Active Team Status: Active Member Role Status Dates Dr. Mei Cummins MD Primary Care Provider Active Dr. Randy Londono MD Emergency Provider Active Dr. Jacob Suazo , DO Admit Provider, Other Pro vider Active Dr. Sushila Rivers MD Active Dr. Martin Zaragoza MD Attending Provider Active Team Status: Active Member Role Status Dates Dr. Mei Cummins MD Primary Care Provider Active Dr. Daksha Corey MD Attending Provider Activ e Team Status: Active Member Role Status Dates Dr. Mei Cummins MD Primary Care Provider Active Dr. Oliverio Allen MD Attending Provider Active Team Status: Active Member Role Status Dates Dr. Mei Cummins MD Primary Care Provider Active Dr. Randy Londono MD Emergency Provider Active Dr. Jacob Suazo , DO Admit Provider, Other Pro vider Active Dr. Martin Zaragoza MD Attending Provider, Other Provi anthony Active Team Status: Inactive Member Role Status Dates Dr. Mei Cummins MD Primary Care Provider Active Dr. Randy Londono MD Emergency Provider Active Dr. Jacob Suazo , DO Admit Provider, Other Pro vider Active Dr. Martin Zaragoza MD Attending Provider Active Broadcast Operations Manager Relationship Specialty Start Date End Date Mei Cummins [address] [place], [place] [address] PCP - General 02/08/20 Broadcast Operations Manager Relationship Specialty Start Date End Date Mei Cummins [address] [place], [place] [address] PCP - General 02/08/20 Broadcast Operations Manager Relationship Specialty Start Date End Date Mei Cummins MD [address] [place], [place] [address] PCP - General Family Medicine 12/17/16 Anuja Steen MD [address], [place] [address] Physician Radiation Oncology 01/26/15 Broadcast Operations Manager Relationship Specialty Start Date End Date Mei Cummins MD [address] [place], [place] [address] [phone] PCP - General Family Medicine 12/17/16 Anuja Steen MD [address] [place] [address] Physician Radiation Oncology 01/26/15 Broadcast Operations Manager Relationship Specialty Start Date End Date Mei Cummins MD [address] [place] [address] PCP - General Family Medicine 12/17/16 Anuja Steen MD [address] [place] [address] Physician Radiation Oncology 01/26/15 Broadcast Operations Manager Relationship Specialty Start Date End Date Mei Cummins MD [address] [place] [address] PCP - General Family Medicine 12/17/16 Anuja Steen MD [address] [place] [address] Physician Radiation Oncology 01/26/15 Broadcast Operations Manager Relationship Specialty Start Date End Date Mei Cummins MD [address] [place] [address] PCP - General Family Medicine 12/17/16 Anuja Steen MD [address] [place] [address] Physician Radiation Oncology 01/26/15 Broadcast Operations Manager Relationship Specialty Start Date End Date Mei Cummins MD [address] [place] [address] PCP - General Family Medicine 12/17/16 Anuja Steen MD [address] [place] [address] Physician Radiation Oncology 01/26/15 Broadcast Operations Manager Relationship Specialty Start Date End Date Mei Cummins MD [address] [place] [address] PCP - General Family Medicine 12/17/16 Anuja Steen MD [address] [place] [address] Physician Radiation Oncology 01/26/15 Broadcast Operations Manager Relationship Specialty Start Date End Date Mei Cummins MD [address] [place] [address] PCP - General Family Medicine 12/17/16 Anuja Steen MD [address] [address] Physician Radiation Oncology 01/26/15 Broadcast Operations Manager Relationship Specialty Start Date End Date Mei Cummins MD [address] [place] [address] PCP - General Family Medicine 12/17/16 Anuja Steen MD [address] [place] [address] Physician Radiation Oncology 01/26/15 Broadcast Operations Manager Relationship Specialty Start Date End Date Mei Cummins MD [address] [place] [address] PCP - General Family Medicine 12/17/16 Anuja Steen MD [address] [facility] [place] [place] [address] Physician Radiation Oncology 01/26/15 Team Status: Active Member Role Status Dates Dr. Mei Cummins MD Primary Care Provider Active Dr. Oliverio Allen MD Attending Provider Active Dr. Jacob Suazo DO Referring Provider Active Team Status: Inactive Member Role Status Dates Dr. Mei Cummins MD Primary Care Provider Active Dr. Edward Grant DO Emergency Provider Active Broadcast Operations Manager Relationship Specialty Start Date End Date Mei Cummins MD [address] [facility] [place] [address] PCP - General Family Medicine 12/17/16 Anuja Steen MD [address] [place] [address] Physician Radiation Oncology 01/26/15 Broadcast Operations Manager Relationship Specialty Start Date End Date Mei Cummins MD [address] [place] [address] PCP - General Family Medicine 12/17/16 Anuja Steen MD [address] [place] [address] Physician Radiation Oncology 01/26/15 Team Status: Inactive Member Role Status Dates Dr. Mei Cummins MD Primary Care Provider Active Dr. Edwrad Grant DO Attending Provider, Emergency Pro vider Active Team Status: Inactive Member Role Status Dates Dr. Mei Cummins MD Primary Care Provider Active Dr. Bruno Catalan MD Attending Provider Active Broadcast Operations Manager Relationship Specialty Start Date End Date Mei Cummins MD [address] [facility] [place] [address] PCP - General Family Medicine 12/17/16 Anuja Steen MD [address] [place] [address] Physician Radiation Oncology 01/26/15 06/16/23 Salazar Meraz DO [address] [place] [address] Hematology/Oncology 06/17/23 Broadcast Operations Manager Relationship Specialty Start Date End Date Mei Cummins MD [address] [place] [address] PCP - General Family Medicine 12/17/16 Salazar Meraz DO [address] [place] [address] Hematology/Oncology 06/17/23 Broadcast Operations Manager Relationship Specialty Start Date End Date Mei Cummins MD [address] [place] [address] PCP - General Family Medicine 12/17/16 Salazar Meraz DO [address] [place] [address] Hematology/Oncology 06/17/23 Broadcast Operations Manager Relationship Specialty Start Date End Date Mei Cummins MD [address] [place] [address] PCP - General Family Medicine 12/17/16 Salazar Meraz DO [address] [place] [address] Hematology/Oncology 06/17/23 Broadcast Operations Manager Relationship Specialty Start Date End Date Mei Cummins MD [address] [facility] [place] [address] PCP - General Family Medicine 12/17/16 Salazar Meraz DO [address] [place] [address] Hematology/Oncology 06/17/23 Broadcast Operations Manager Relationship Specialty Start Date End Date Mei Cummins MD [address] [facility] [place] [address] PCP - General Family Medicine 12/17/16 Salazar Meraz DO [address] [place] [address] Hematology/Oncology 06/17/23 Broadcast Operations Manager Relationship Specialty Start Date End Date Mei Cummins MD [address] [facility] [place] [address] PCP - General Family Medicine 12/17/16 Salazar Meraz DO [address] [place] [address] Hematology/Oncology 06/17/23 Broadcast Operations Manager Relationship Specialty Start Date End Date Mei Cummins MD [address] [place] [address] PCP - General Family Medicine 12/17/16 Salazar Meraz DO [address] [place] [address] Hematology/Oncology 06/17/23 Broadcast Operations Manager Relationship Specialty Start Date End Date Mei Cummins MD [address] [facility] [place] [address] PCP - General Family Medicine 12/17/16 Salazar Meraz DO [address] [facility] [place] [address] Hematology/Oncology 06/17/23 Broadcast Operations Manager Relationship Specialty Start Date End Date Mei Cummins MD [address] [facility] [place] [address] PCP - General Family Medicine 12/17/16 Salazar Meraz DO [address] [place] [address] Hematology/Oncology 06/17/23 Broadcast Operations Manager Relationship Specialty Start Date End Date Mie Cummins MD [address] [facility] [place] [address] PCP - General Family Medicine 12/17/16 Salazar Meraz DO [address] [place] [address] Hematology/Oncology 06/17/23 Broadcast Operations Manager Relationship Specialty Start Date End Date Mei Cummins MD [address] [facility] [place] [address] PCP - General Family Medicine 12/17/16 Salazar Meraz DO [address] [place] [address] Hematology/Oncology 06/17/23 Broadcast Operations Manager Relationship Specialty Start Date End Date Mei Cummins MD [address] [place] [address] PCP - General Family Medicine 12/17/16 Salazar Meraz DO [address] [place] [address] Hematology/Oncology 06/17/23 Broadcast Operations Manager Relationship Specialty Start Date End Date Mei Cummins MD [address] [place] [address] PCP - General Family Medicine 12/17/16 Salazar Meraz DO [address] [place] [address] Hematology/Oncology 06/17/23 Broadcast Operations Manager Relationship Specialty Start Date End Date Mei Cummins MD [address] [place] [address] PCP - General Family Medicine 12/17/16 Salazar Meraz DO [address] [place] [address] Hematology/Oncology 06/17/23 Broadcast Operations Manager Relationship Specialty Start Date End Date Mei Cummins MD [address] [place] [address] PCP - General Family Medicine 12/17/16 Salazar Meraz DO [address] [place] [address] Hematology/Oncology 06/17/23 Broadcast Operations Manager Relationship Specialty Start Date End Date Mei Cummins MD [address] [place] [address] PCP - General Family Medicine 12/17/16 Salazar Meraz DO [address] [place] [address] Hematology/Oncology 06/17/23 Broadcast Operations Manager Relationship Specialty Start Date End Date Mei Cummins MD [address] [place] [address] PCP - General Family Medicine 12/17/16 Salazar Meraz DO [address] [place] [address] Hematology/Oncology 06/17/23 Broadcast Operations Manager Relationship Specialty Start Date End Date Mei Cummins MD [address] [facility] [address] PCP - General Family Medicine 12/17/16 Salazar Meraz DO [address] [place] [address] Hematology/Oncology 06/17/23 Broadcast Operations Manager Relationship Specialty Start Date End Date Mei Cummins MD [address] [facility] [address] PCP - General Family Medicine 12/17/16 Salazar Meraz DO [address] [place] [address] Hematology/Oncology 06/17/23 Broadcast Operations Manager Relationship Specialty Start Date End Date Mei Cummins MD [address] [place] [address] PCP - General Family Medicine 12/17/16 Salazar Meraz DO [address] [place] [address] Hematology/Oncology 06/17/23 Broadcast Operations Manager Relationship Specialty Start Date End Date Mei Cummins MD [address] [place] [address] PCP - General Family Medicine 12/17/16 Salazar Meraz DO [address] [place] [address] Hematology/Oncology 06/17/23 Broadcast Operations Manager Relationship Specialty Start Date End Date Mei Cummins MD [address] [place] [address] PCP - General Family Medicine 12/17/16 Salazar Meraz DO [address] [facility] [place] [place] [address] Hematology/Oncology 06/17/23 Broadcast Operations Manager Relationship Specialty Start Date End Date Mei Cummins MD [address] [place] [address] PCP - General Family Medicine 12/17/16 Salazar Meraz DO [address] [place] [address] Hematology/Oncology 06/17/23 Broadcast Operations Manager Relationship Specialty Start Date End Date Mei Cummins MD [address] [place] [address] PCP - General Family Medicine 12/17/16 Salazar Meraz DO [address] [facility] [place] [place] [address] Hematology/Oncology 06/17/23 Broadcast Operations Manager Relationship Specialty Start Date End Date Mei Cummins MD [address] [facility] [place] [address] PCP - General Family Medicine 12/17/16 Salazar Meraz DO [address] [facility] [place] [place] [address] Hematology/Oncology 06/17/23 Broadcast Operations Manager Relationship Specialty Start Date End Date Mei Cummins MD [address] [facility] [place] [address] PCP - General Family Medicine 12/17/16 Salazar Meraz DO [address] [facility] [place] [place] [address] Hematology/Oncology 06/17/23 Broadcast Operations Manager Relationship Specialty Start Date End Date Mei Cummins MD [address] [facility] [place] [address] PCP - General Family Medicine 12/17/16 Salazar Meraz DO [address] [place] [address] Hematology/Oncology 06/17/23 Broadcast Operations Manager Relationship Specialty Start Date End Date Mei Cummins MD [address] [facility] [place] [address] PCP - General Family Medicine 12/17/16 Salazar Meraz DO [address] [place] [address] Hematology/Oncology 06/17/23 Broadcast Operations Manager Relationship Specialty Start Date End Date Mei Cummins MD [address] [facility] [place] [address] PCP - General Family Medicine 12/17/16 Salazar Meraz DO [address] [place] [address] Hematology/Oncology 06/17/23 Broadcast Operations Manager Relationship Specialty Start Date End Date Mei Cummins MD [address] [place] [address] PCP - General Family Medicine 12/17/16 Salazar Meraz DO [address] [place] [address] Hematology/Oncology 06/17/23 Broadcast Operations Manager Relationship Specialty Start Date End Date Mei Cummins MD [address] [place] [address] PCP - General Family Medicine 12/17/16 Anuja Steen MD [address] [place] [address] Physician Radiation Oncology 01/26/15 06/16/23 Broadcast Operations Manager Relationship Specialty Start Date End Date Mei Cummins MD [address] [place] [address] PCP - General Family Medicine 12/17/16 Salazar Meraz DO [address] [place] [address] Hematology/Oncology 06/17/23 Broadcast Operations Manager Relationship Specialty Start Date End Date Mei Cummins MD [address] [place] [address] PCP - General Family Medicine 12/17/16 Salazar Meraz DO [address] [place] [address] Hematology/Oncology 06/17/23 Broadcast Operations Manager Relationship Specialty Start Date End Date Mei Cummins MD [address] [place] [address] PCP - General Family Medicine 12/17/16 Salazar Meraz DO [address] [place] [address] Hematology/Oncology 06/17/23 Broadcast Operations Manager Relationship Specialty Start Date End Date Mei Cummins MD [address] [place] [address] PCP - General Family Medicine 12/17/16 Salazar Meraz DO [address] [place] [address] Hematology/Oncology 06/17/23 Broadcast Operations Manager Relationship Specialty Start Date End Date Mei Cummins MD [address] [place] [address] PCP - General Family Medicine 12/17/16 Salazar Meraz DO [address] [place] [address] Hematology/Oncology 06/17/23 Broadcast Operations Manager Relationship Specialty Start Date End Date Mei Cummins MD [address] [place] [address] PCP - General Family Medicine 12/17/16 Salazar Meraz DO [address] [place] [address] Hematology/Oncology 06/17/23 Broadcast Operations Manager Relationship Specialty Start Date End Date Mei Cummins MD [address] [place] [address] PCP - General Family Medicine 12/17/16 Salazar Meraz DO [address] [address] Hematology/Oncology 06/17/23 Broadcast Operations Manager Relationship Specialty Start Date End Date Mei Cummins MD [address] [place] [address] PCP - General Family Medicine 12/17/16 Salazar Meraz DO [address] [place] [address] Hematology/Oncology 06/17/23 Broadcast Operations Manager Relationship Specialty Start Date End Date Mei Cummins MD [address] [place] [address] PCP - General Family Medicine 12/17/16 Salazar Meraz DO [address] [facility] [place] [place] [address] Hematology/Oncology 06/17/23 Broadcast Operations Manager Relationship Specialty Start Date End Date Mei Cummins MD [address] [place] [address] PCP - General Family Medicine 12/17/16 Salazar Meraz DO [address] [place] [address] Hematology/Oncology 06/17/23 Broadcast Operations Manager Relationship Specialty Start Date End Date Mei Cummins MD [address] [place] [address] PCP - General Family Medicine 12/17/16 Salazar Meraz DO [address] [place] [address] Hematology/Oncology 06/17/23 Broadcast Operations Manager Relationship Specialty Start Date End Date Mei Cummins MD [address] [place] [address] PCP - General Family Medicine 12/17/16 Salazar Meraz DO [address] [place] [address] Hematology/Oncology 06/17/23 Broadcast Operations Manager Relationship Specialty Start Date End Date Mei Cummins MD [address] [place] [address] PCP - General Family Medicine 12/17/16 Salazar Meraz DO [address] [place] [address] Hematology/Oncology 06/17/23 Twila Weston APRN.LEGAL STENOGRAPHER [address] [facility] [place] [address] Detention Officer Family Medicine 02/07/24 Broadcast Operations Manager Relationship Specialty Start Date End Date Mei Cummins MD [address] [facility] [place] [address] PCP - General Family Medicine 12/17/16 Salazar Meraz DO [address] [place] [address] Hematology/Oncology 06/17/23 Twila Weston APRN.LEGAL STENOGRAPHER [address] [facility] [place] [address] [facility]24 Broadcast Operations Manager Relationship Specialty Start Date End Date Mei Cummins MD [address] [facility] [place] [address] PCP - General Family Medicine 12/17/16 Salazar Meraz DO [address] [place] [address] Hematology/Oncology 06/17/23 Twila Weston, IMPROVEMENT COORDINATOR.LEGAL STENOGRAPHER [address] [facility] [place] [address] [facility] Family Medicine 02/07/24 Broadcast Operations Manager Relationship Specialty Start Date End Date Mei Cummins MD [address] [facility] [place] [address] PCP - General Family Medicine 12/17/16 Salazar Meraz DO [address] [place] [address] Hematology/Oncology 06/17/23 Twila Weston APRN.LEGAL STENOGRAPHER [address] [place] [address] Detention Officer Family Medicine 02/07/24 Broadcast Operations Manager Relationship Specialty Start Date End Date Mei Cummins MD [address] [place] [address] PCP - General Family Medicine 12/17/16 Salazar Meraz DO [address] [place] [address] Hematology/Oncology 06/17/23 Twila Weston APRN.LEGAL STENOGRAPHER [address] [place] [address] Detention Officer Family Medicine 02/07/24 Jamshid Brown APRN.LEGAL STENOGRAPHER [address] [place] [address] Detention Officer Family [facility] 02/16/24 Broadcast Operations Manager Relationship Specialty Start Date End Date Mei Cummins MD [address] [place] [address] PCP - General Family Medicine 12/17/16 Salazar Meraz DO [address] [place] [address] Hematology/Oncology 06/17/23 Twila Weston APRN.LEGAL STENOGRAPHER [address] [place] [address] Detention Officer Family Medicine 02/07/24 Jamshid Brown APRN.LEGAL STENOGRAPHER [address] [place] [address] Detention Officer Family Medicine 02/16/24 Broadcast Operations Manager Relationship Specialty Start Date End Date Mei Cummins MD [address] [place] [address] PCP - General Family Medicine 12/17/16 Salazar Meraz DO [address] [place] [address] Hematology/Oncology 06/17/23 Twila Weston APRN.LEGAL STENOGRAPHER [address] [facility] [place] [address] Detention Officer Family Medicine 02/07/24 Jamshid Brown APRN.LEGAL STENOGRAPHER [address] [facility] [address] Detention Officer Family [facility] 02/16/24 Broadcast Operations Manager Relationship Specialty Start Date End Date Mei Cummins MD [address] [facility] [address] PCP - General Family Medicine 12/17/16 Salazar Meraz DO [address] [place] [address] Hematology/Oncology 06/17/23 Twila Weston APRN.LEGAL STENOGRAPHER [address] [facility] [address] Detention Officer Family Medicine 02/07/24 Jamshid Brown APRN.LEGAL STENOGRAPHER [address] [facility] [place] [address] [facility] 02/16/24 Broadcast Operations Manager Relationship Specialty Start Date End Date Mei Cummins MD [address] [facility] [place] [address] PCP - General Family Medicine 12/17/16 Salazar Meraz DO [address] [place] [address] Hematology/Oncology 06/17/23 Twila Weston APRN.LEGAL STENOGRAPHER [address] [facility] [place] [address] [facility] 02/07/24 Jamshid Brown APRN.LEGAL STENOGRAPHER [address] [facility] [place] [address] [facility] 02/16/24 Broadcast Operations Manager Relationship Specialty Start Date End Date Mei Cummins MD [address] [facility] [place] [address] PCP - General Family Medicine 12/17/16 Salazar Meraz DO [address] [facility] [place] [address] Hematology/Oncology 06/17/23 Twila Weston APRN.LEGAL STENOGRAPHER [address] [facility] [place] [address] Detention Officer Family Medicine 02/07/24 Jamshid Brown APRN.LEGAL STENOGRAPHER [address] [place] [address] Detention Officer Family [facility] 02/16/24 Broadcast Operations Manager Relationship Specialty Start Date End Date Mei Cummins MD [address] [place] [address] PCP - General Family Medicine 12/17/16 Salazar Meraz DO [address] [address] Hematology/Oncology 06/17/23 Twila Weston APRN.LEGAL STENOGRAPHER [address] [place] [address] Detention Officer Family Medicine 02/07/24 Jamshid Brown APRN.LEGAL STENOGRAPHER [address] [place] [address] Detention Officer Family [facility] 02/16/24 Broadcast Operations Manager Relationship Specialty Start Date End Date Mei Cummins MD [address] [place] [address] PCP - General Family Medicine 12/17/16 Salazar Meraz DO [address] [facility] [place] [place] [address] Hematology/Oncology 06/17/23 Twila Weston APRN.LEGAL STENOGRAPHER [address] [place] [address] Detention Officer Family Medicine 02/07/24 Jamshid Brown APRN.LEGAL STENOGRAPHER [address] [place] [address] Detention Officer Family Medicine 02/16/24 Broadcast Operations Manager Relationship Specialty Start Date End Date Mei Cummins MD [address] [place] [address] PCP - General Family Medicine 12/17/16 Salazar Meraz DO [address] [place] [address] Hematology/Oncology 06/17/23 Twila Weston APRN.LEGAL STENOGRAPHER [address] [place] [address] Detention Officer Family Medicine 02/07/24 Jamshid Brown APRN.LEGAL STENOGRAPHER [address] [place] [address] Detention Officer Family Medicine 02/16/24 Broadcast Operations Manager Relationship Specialty Start Date End Date Mei Cummins MD [address] [place] [address] PCP - General Family Medicine 12/17/16 Salazar Meraz DO [address] [facility] [place] [address] Hematology/Oncology 06/17/23 Twila Weston IMPROVEMENT COORDINATOR.LEGAL STENOGRAPHER [address] [place] [address] Detention Officer Family Medicine 02/07/24 Jamshid Brown APRN.LEGAL STENOGRAPHER [address] [place] [address] Detention Officer Family Medicine 02/16/24 Broadcast Operations Manager Relationship Specialty Start Date End Date Mei Cummins MD [address] [place] [address] PCP - General Family Medicine 12/17/16 Salazar Meraz DO [address] [place] [address] Hematology/Oncology 06/17/23 Twila Weston APRN.LEGAL STENOGRAPHER [address] [place] [address] Detention Officer Family Medicine 02/07/24 Jamshid Brown APRN.LEGAL STENOGRAPHER [address] [facility] [place] [address] Detention Officer Family Medicine 02/16/24 Broadcast Operations Manager Relationship Specialty Start Date End Date Mei Cummins MD [address] [facility] [place] [address] PCP - General Family Medicine 12/17/16 Salazar Meraz DO [address] [place] [address] Hematology/Oncology 06/17/23 Twila Weston APRN.LEGAL STENOGRAPHER [address] [place] [address] Detention Officer Family Medicine 02/07/24 Jamshid Brown APRN.LEGAL STENOGRAPHER [address] [place] [address] Detention Officer Family Medicine 02/16/24 Broadcast Operations Manager Relationship Specialty Start Date End Date Mei Cummins MD [address] [place] [address] PCP - General Family Medicine 12/17/16 Salazar Meraz DO [address] [place] [address] Hematology/Oncology 06/17/23 Twila Weston APRN.LEGAL STENOGRAPHER [address] [place] [address] Detention Officer Family Medicine 02/07/24 Jamshid Brown APRN.LEGAL STENOGRAPHER [address] [place] [address] Detention Officer Family Medicine 02/16/24 Broadcast Operations Manager Relationship Specialty Start Date End Date Mei Cummins MD [address] [place] [address] PCP - General Family Medicine 12/17/16 Salazar Meraz DO [address] [place] [address] Hematology/Oncology 06/17/23 Twila Weston APRN.LEGAL STENOGRAPHER [address] [place] [address] Detention Officer Family Medicine 02/07/24 Jamshid Brown APRN.LEGAL STENOGRAPHER [address] [place] [address] Detention Officer Family Medicine 02/16/24 Broadcast Operations Manager Relationship Specialty Start Date End Date Mei Cummins MD [address] [place] [address] PCP - General Family Medicine 12/17/16 Salazar Meraz DO [address] [place] [address] Hematology/Oncology 06/17/23 Twila Weston APRN.LEGAL STENOGRAPHER [address] [place] [address] Detention Officer Family Medicine 02/07/24 Jamshid Brown APRN.LEGAL STENOGRAPHER [address] [facility] [place] [address] Detention Officer Family Medicine 02/16/24 Broadcast Operations Manager Relationship Specialty Start Date End Date Mei Cummins MD [address] [place] [address] PCP - General Family Medicine 12/17/16 Salazar Meraz DO [address] [place] [address] Hematology/Oncology 06/17/23 Twila Weston IMPROVEMENT COORDINATOR.LEGAL STENOGRAPHER [address] [facility] [place] [address] Detention Officer Family Medicine 02/07/24 Jamshid Brown IMPROVEMENT COORDINATOR.LEGAL STENOGRAPHER [address] [facility] [place] [address] Detention Officer Family Medicine 02/16/24 Broadcast Operations Manager Relationship Specialty Start Date End Date Mei Cummins MD [address] [place] [address] PCP - General Family Medicine 12/17/16 Salazar Meraz DO [address] [facility], [place] [address] Hematology/Oncology 06/17/23 Twila Weston APRN.LEGAL STENOGRAPHER [address] [facility], [place] [address] Detention Officer Family [facility] 02/07/24 Jamshid Brown APRN.LEGAL STENOGRAPHER [address] [facility], [place] [address] Detention Officer [facility] 02/16/24 Team Status: Inactive Member Role Status Dates Dr. Mei Cummins MD Referring Provider Active Start: February 11, 2024 End: February 11, 2024 JAYY Otero Attending Provider Active Start: February 11, 2024 End: February 11, 2024 Team Status: Inactive Member Role Status Dates Dr. Tristan Salter DO Emergency Provider Active Start: February 19, 2024 End: February 22, 2024 Dr. Mei Cummins MD Primary Care Provider Active Start: February 19, 2024 End: February 22, 2024 Dr. Sushila Rivers MD Admit Provider Active St art: February 19, 2024 End: February 22, 2024 Dr. Sushila Rivers MD Referring Provider Active Start: February 19, 2024 End: February 22, 2024 Dr. Sushila Rivers MD Other Provider Active St art: February 19, 2024 End: February 22, 2024 Dr. Mei Cortes DO Attending Provider Active Start: February 19, 2024 End: February 22, 2024 Dr. Mei Cortes DO Other Provider Active S tart: February 19, 2024 End: February 22, 2024 Dr. Jacob Suazo DO Other Provider Active Start: February 19, 2024 End: February 22, 2024 Team Status: Active Member Role Status Dates Dr. Tristan Salter DO Emergency Provider Active Start: February 20, 2024 Dr. Mei Cummins MD Primary Care Provider Active Start: February 20, 2024 Dr. Sushila Rivers MD Admit Provider Active St art: February 20, 2024 Dr. Sushila Rivers MD Other Provider Active St art: February 20, 2024 Dr. Jacob Suazo DO Attending Provider Active Start: February 20, 2024 Dr. Jacob Suazo DO Other Provider Active Start: February 20, 2024 Team Status: Active Member Role Status Dates Dr. Tristan Salter DO Emergency Provider Active Start: February 21, 2024 Dr. Mei Cummins MD Primary Care Provider Active Start: February 21, 2024 Dr. Sushila Rivers MD Admit Provider Active St art: February 21, 2024 Dr. Sushila Rivers MD Other Provider Active St art: February 21, 2024 Dr. Jacob Suazo DO Attending Provider Active Start: February 21, 2024 Dr. Jacob Suazo DO Other Provider Active Start: February 21, 2024 Team Status: Active Member Role Status Dates Dr. Tristan Salter DO Emergency Provider Active Start: February 22, 2024 Dr. Mei Cummins MD Primary Care Provider Active Start: February 22, 2024 Dr. Sushila Rivers MD Admit Provider Active St art: February 22, 2024 Dr. Sushila Rivers MD Other Provider Active St art: February 22, 2024 Dr. Mei Cortes DO Attending Provider Active Start: February 22, 2024 Dr. Mei Cortes DO Other Provider Active S tart: February 22, 2024 Dr. Jacob Suazo DO Other Provider Active Start: February 22, 2024 Team Status: Inactive Member Role Status Dates Dr. Mei Cummins MD Primary Care Provider Active Start: March 30, 2024 End: March 30, 2024 Dr. Mei Cummins MD Attending Provider Active Start: March 30, 2024 End: March 30, 2024 Dr. Mei Cummins MD Referring Provider Active Start: March 30, 2024 End: March 30, 2024 Team Status: Inactive Member Role Status Dates Dr. Mei Cummins MD Primary Care Provider Active Start: March 30, 2024 End: April 01, 2024 Rosa Garcia PSYCHOMETRIC EXAMINER, PSYCHOMETRIC EXAMINER-C Attending Provider Active Start: March 30, 2024 End: April 01, 2024 Dr. Juan Carlos Viveros DPM Referring Provider Active Start: March 30, 2024 End: April 01, 2024 Team Status: Active Member Role Status Dates Dr. Mei Cummins MD Primary Care Provider Active Start: March 30, 2024 Rosa Garcia PSYCHOMETRIC EXAMINER, PSYCHOMETRIC EXAMINER-C Attending Provider Active Start: March 30, 2024 Rosa Garcia PSYCHOMETRIC EXAMINER, PSYCHOMETRIC EXAMINER-C Other Provider Active Start: March 30, 2024 Dr. Juan Carlos Viveros DPM Referring Provider Active Start: March 30, 2024 Team Status: Active Member Role Status Dates Dr. Mei Cummins MD Primary Care Provider Active Start: April 27, 2024 Rosa Garcia PSYCHOMETRIC EXAMINER, PSYCHOMETRIC EXAMINER-C Attending Provider Active Start: April 27, 2024 Rosa Garcia PSYCHOMETRIC EXAMINER, PSYCHOMETRIC EXAMINER-C Other Provider Active Start: April 27, 2024 Dr. Juan Carlos Viveros DPM Referring Provider Active Start: April 27, 2024 Team Status: Active Member Role Status Dates Dr. Mei Cummins MD Primary Care Provider Active Start: May 11, 2024 Dr. Juan Carlos Viveros DPM Referring Provider Active Start: May 11, 2024 Dr. Rasta Mazariegos DPM Attending Provider Active Start: May 11, 2024 Team Status: Active Member Role Status Dates Dr. Mei Cummins MD Primary Care Provider Active Start: May 11, 2024 Dr. Juan Carlos Viveros DPM Referring Provider Active Start: May 11, 2024 Dr. Rasta Mazariegos DPM Other Provider Active St art: May 11, 2024 Rosa Garcia PSYCHOMETRIC EXAMINER, PSYCHOMETRIC EXAMINER-C Attending Provider Active Start: May 11, 2024 Team Status: Active Member Role Status Dates Dr. Mei Cummins MD Primary Care Provider Active Start: May 22, 2024 Dr. Randy Londono MD Emergency Provider Active Sta rt: May 22, 2024 Dr. Jacob Suazo DO Admit Provider Active Start: May 22, 2024 Dr. Jacob Suazo DO Attending Provider Active Start: May 22, 2024 Dr. Jacob Suazo DO Other Provider Active Start: May 22, 2024 Broadcast Operations Manager Relationship Specialty Start Date End Date Mei Cummins MD [address] [place], [place] [id number] PCP - General Family Medicine 12/17/16 Salazar Meraz DO [address] [place] [address] Hematology/Oncology 06/17/23 Twila Weston, VANNA.LEGAL STENOGRAPHER [address] [place], [place] [address] Detention Officer [facility] 02/07/24 Jamshid Brown IMPROVEMENT COORDINATOR.LEGAL STENOGRAPHER [address] [place], [place] [address] Detention Officer [facility] 02/16/24 Team Status: Active Member Role Status Dates Dr. Mei Cummins MD Primary Care Provider Active Start: June 01, 2024 Dr. Juan Carlos Viveros DPM Referring Provider Active Start: June 01, 2024 Dr. Rasta Mazariegos DPM Attending Provider Active Start: June 01, 2024 Team Status: Active Member Role Status Dates Dr. Mei Cummins MD Primary Care Provider Active Start: June 03, 2024 Dr. Aj Martinez MD Emergency Provider Active Start: June 03, 2024 Dr. Elizabeth Santamaria MD Admit Provider Active St art: June 03, 2024 Dr. Elizabeth Santamaria MD Attending Provider Active Start: June 03, 2024 Team Status: Active Member Role Status Dates Dr. Mei Cummins MD Primary Care Provider Active Start: June 04, 2024 Dr. Aj Martinez MD Emergency Provider Active Start: June 04, 2024 Dr. Elizabeth Santamaria MD Admit Provider Active St art: June 04, 2024 Dr. Elizabeth Santamaria MD Other Provider Active St art: June 04, 2024 Dr. Jacob Suazo DO Other Provider Active Start: June 04, 2024 Dr. Garcia Moreno DO Attending Provider Active Start: June 04, 2024 Broadcast Operations Manager Relationship Specialty Start Date End Date Mei Cummins MD [address] [place] [address] PCP - General Family Medicine 12/17/16 Salazar Meraz DO [address] [place], [place] [address] Hematology/Oncology 06/17/23 Twila Weston, VANNA.LEGAL STENOGRAPHER [address] [place], [place] [address]141 Detention Officer Family Medicine 02/07/24 Jamshid Brown, VANNA.LEGAL STENOGRAPHER [address] [place], [place] [address] Detention Officer Family [facility] 02/16/24 Team Status: Active Member Role Status Dates Dr. Mei Cummins MD Primary Care Provider Active Start: June 08, 2024 Dr. Juan Carlos Viveros DPM Referring Provider Active Start: June 08, 2024 Dr. Rasta Mazariegos DPM Attending Provider Active Start: June 08, 2024 Team Status: Active Member Role Status Dates Dr. Mei Cummins MD Primary Care Provider Active Start: June 10, 2024 JAYY Otero Attending Provider Active Start: June 10, 2024 JAYY Otero Referring Provider Active Start: June 10, 2024 Team Status: Active Member Role Status Dates Dr. Mei Cummins MD Primary Care Provider Active Start: June 13, 2024 Teresa Garner Attending Provider Active Start : June 13, 2024 Teresa Garner Referring Provider Active Start : June 13, 2024 MARY LOU Kent Other Provider Active Start : June 13, 2024 Team Status: Active Member Role Status Dates Dr. Mei Cummins MD Primary Care Provider Active Start: June 15, 2024 Dr. Juan Carlos Viveros DPM Referring Provider Active Start: June 15, 2024 Dr. Rasta Mazariegos DPM Attending Provider Active Start: Katherine 16th, 2025 Broadcast Operations Manager Relationship Specialty Start Date End Date Mei Cummins MD [address] [place] [address] PCP - General Family Medicine 12/17/16 Salazar Meraz DO [address] [place] [address] Hematology/Oncology 06/17/23 Twila Weston IMPROVEMENT COORDINATOR.LEGAL STENOGRAPHER [address] [place] [address] Detention Officer Family Medicine 02/07/24 Jamshid Brown APRN.LEGAL STENOGRAPHER [address] [place] [address] Detention Officer Family Medicine 02/16/24 Broadcast Operations Manager Relationship Specialty Start Date End Date Mei Cummins MD [address] [place] [address] PCP - General Family Medicine 12/17/16 Salazar Meraz DO [address] [place] [address] Hematology/Oncology 06/17/23 Twila Weston IMPROVEMENT COORDINATOR.LEGAL STENOGRAPHER [address] [place] [address] Detention Officer Family Medicine 02/07/24 Jamshid Brown IMPROVEMENT COORDINATOR.LEGAL STENOGRAPHER [address] [place] [address] Detention Officer Family Medicine 02/16/24 Broadcast Operations Manager Relationship Specialty Start Date End Date Mei Cummins MD [address] [place] [address] PCP - General Family Medicine 12/17/16 Salazar Meraz DO [address] [place] [address] Hematology/Oncology 06/17/23 Twila Weston APRN.LEGAL STENOGRAPHER [address] [place] [address] Detention Officer Family Medicine 02/07/24 Jamshid Brown APRN.LEGAL STENOGRAPHER [address] [place] [address] Detention Officer Family Medicine 02/16/24 Broadcast Operations Manager Relationship Specialty Start Date End Date Mei Cummins MD [address] [place] [address] PCP - General Family Medicine 12/17/16 Salazar Meraz DO [address] [place] [address] Hematology/Oncology 06/17/23 Twila Weston APRN.LEGAL STENOGRAPHER [address] [place] [address] Detention Officer Family Medicine 02/07/24 Jamshid Brown APRN.LEGAL STENOGRAPHER [address] [place] [address] Detention Officer Family Medicine 02/16/24 Broadcast Operations Manager Relationship Specialty Start Date End Date Mei Cummins MD [address] [place] [address] PCP - General Family Medicine 12/17/16 Salazar Meraz DO [address] [place] [address] Hematology/Oncology 06/17/23 Twila Weston APRN.LEGAL STENOGRAPHER [address] [place] [address] [facility]/24 Jamshid Brown IMPROVEMENT COORDINATOR.LEGAL STENOGRAPHER [address] [facility] [place] [address] [facility] 02/16/24 Broadcast Operations Manager Relationship Specialty Start Date End Date Mei Cummins MD [address] [facility] [place] [address] PCP - General Family Medicine 12/17/16 Salazar Meraz DO [address] [place] [address] Hematology/Oncology 06/17/23 Twila Weston, IMPROVEMENT COORDINATOR.LEGAL STENOGRAPHER [address] [place] [address] [facility] 02/07/24 Jamshid Brown APRN.LEGAL STENOGRAPHER [address] [place] [address] [facility] 02/16/24 Team Status: Active Member Role Status Dates Dr. Mei Cummins MD Primary Care Provider Active Start: July 06, 2024 Dr. Juan Carlos Viveros DPM Referring Provider Active Start: July 06, 2024 Dr. Rasta Mazariegos DPM Attending Provider Active Start: July 06, 2024 Team Status: Active Member Role Status Dates Dr. Mei Cummins MD Primary Care Provider Active Start: July 13, 2024 Dr. Juan Carlos Viveros DPM Referring Provider Active Start: July 13, 2024 Dr. Rasta Mazariegos DPM Attending Provider Active Start: July 13, 2024 Broadcast Operations Manager Relationship Specialty Start Date End Date Mei Cummins MD [address] [facility] [place] [address] PCP - General Family Medicine 12/17/16 Salazar Meraz DO [address] [address] Hematology/Oncology 06/17/23 Jamshid Brown IMPROVEMENT COORDINATOR.LEGAL STENOGRAPHER [address] [facility] [place] [address] Detention Officer Family Medicine 02/16/24 Broadcast Operations Manager Relationship Specialty Start Date End Date Mei Cummins MD [address] [place] [address] PCP - General Family Medicine 12/17/16 Salazar Meraz DO [address] [place] [address] Hematology/Oncology 06/17/23 Jamshid Brown, IMPROVEMENT COORDINATOR.LEGAL STENOGRAPHER [address] [place] [address] Detention Officer Family Medicine 02/16/24 Broadcast Operations Manager Relationship Specialty Start Date End Date Mei Cummins MD [address] [facility] [place] [address] PCP - General Family Medicine 12/17/16 Salazar Meraz DO [address] [address] Hematology/Oncology 06/17/23 Twila Weston APRN.LEGAL STENOGRAPHER [address] [place] [address] Detention Officer Family Medicine 02/07/24 07/13/24 Jamshid Brown APRN.LEGAL STENOGRAPHER [address] [place] [address] Detention Officer Family Medicine 02/16/24 Broadcast Operations Manager Relationship Specialty Start Date End Date Mei Cummins MD [address] [place] [address] PCP - General Family Medicine 12/17/16 Salazar Meraz DO [address] [place] [address] Hematology/Oncology 06/17/23 Jamshid Brown APRN.LEGAL STENOGRAPHER [address] [place] [address] Detention Officer Family Medicine 02/16/24 Broadcast Operations Manager Relationship Specialty Start Date End Date Mei Cummins MD [address] [place] [address] PCP - General Family Medicine 12/17/16 Salazar Meraz DO [address] [place] [address] Hematology/Oncology 06/17/23 Jamshid Brown APRN.LEGAL STENOGRAPHER [address] [address] Detention Officer Family Medicine 02/16/24 Broadcast Operations Manager Relationship Specialty Start Date End Date Mei Cummins MD [address] [place] [address] PCP - General Family Medicine 12/17/16 Salazar Meraz DO [address] [place] [address] Hematology/Oncology 06/17/23 Jamshid Brown APRN.LEGAL STENOGRAPHER [address] [place], [place] [address] Detention Officer Family Medicine 02/16/24 Team Status: Active Member Role/Relationship Status Dates Dr. Mei Cummins MD Primary Care Provider Active Team Status: Inactive Member Role/Relationship Status Dates Dr. Mei Cummins MD Primary Care Provider Active Start: May 11, 2024 End: May 30, 2024 Dr. Juan Carlos Viveros DPM Referring Provider Active Start: May 11, 2024 End: May 30, 2024 Dr. Rasta Mazariegos DPM Attending Provider Active Start: May 11, 2024 End: May 30, 2024 Team Status: Active Member Role/Relationship Status Dates Dr. Mei Cummins MD Primary Care Provider Active Start: May 11, 2024 Dr. Rasta Mazariegos DPM Other Provider Active St art: May 11, 2024 Rosa Garcia PSYCHOMETRIC EXAMINER, PSYCHOMETRIC EXAMINER-C Attending Provider Active Start: May 11, 2024 Rosa Garcia PSYCHOMETRIC EXAMINER, PSYCHOMETRIC EXAMINER-C Referring Provider Active Start: May 11, 2024 Team Status: Inactive Member Role/Relationship Status Dates Dr. Mei Cummins MD Primary Care Provider Active Start: May 22, 2024 End: May 24, 2024 Dr. Randy Londono MD Emergency Provider Active Sta rt: May 22, 2024 End: May 24, 2024 Dr. Jacob Suazo , Admit Provider Active Start: May 22, 2024 End: May 24, 2024 Dr. Jacob Suazo DO Other Provider Active Start: May 22, 2024 End: May 24, 2024 Dr. Malu Steen , Attending Provider Active S tart: May 22, 2024 End: May 24, 2024 Dr. Mei Cortes , Other Provider Active S tart: May 22, 2024 End: May 24, 2024 Team Status: Active Member Role/Relationship Status Dates Dr. Mei Cummins MD Primary Care Provider Active Start: May 23, 2024 Dr. Randy Londono MD Emergency Provider Active Sta rt: May 23, 2024 Dr. Jacob Suazo DO Admit Provider Active Start: May 23, 2024 Dr. Jacob Suazo , Other Provider Active Start: May 23, 2024 Dr. Mei Cortes DO Attending Provider Active Start: May 23, 2024 Dr. Mei Cortes , Other Provider Active S tart: May 23, 2024 Team Status: Active Member Role/Relationship Status Dates Dr. Mei Cummins MD Primary Care Provider Active Start: May 24, 2024 Dr. Randy Londono MD Emergency Provider Active Sta rt: May 24, 2024 Dr. Jacob Suazo DO Admit Provider Active Start: May 24, 2024 Dr. Jacob Suazo DO Other Provider Active Start: May 24, 2024 Dr. Maul Steen DO Attending Provider Active S tart: May 24, 2024 Dr. Malu Steen DO Other Provider Active Start : May 24, 2024 Dr. Mei Cortes DO Other Provider Active S tart: May 24, 2024 Team Status: Inactive Member Role/Relationship Status Dates Dr. Mei Cummins MD Primary Care Provider Active Start: June 03, 2024 End: June 05, 2024 Dr. Aj Martinez MD Emergency Provider Active Start: June 03, 2024 End: June 05, 2024 Dr. Elizabeth Santamaria MD Admit Provider Active St art: June 03, 2024 End: June 05, 2024 Dr. Elizabeth Santamaria MD Other Provider Active St art: June 03, 2024 End: June 05, 2024 Dr. Jacob Suazo DO Attending Provider Active Start: June 03, 2024 End: June 05, 2024 Team Status: Active Member Role/Relationship Status Dates Dr. Mei Cummins MD Primary Care Provider Active Start: June 04, 2024 Dr. Aj Martinez MD Emergency Provider Active Start: June 04, 2024 Dr. Elizabeth Santamaria MD Admit Provider Active St art: June 04, 2024 Dr. Elizabeth Santamaria MD Other Provider Active St art: June 04, 2024 Dr. Jacob Suazo DO Attending Provider Active Start: June 04, 2024 Dr. Jacob Suazo DO Other Provider Active Start: June 04, 2024 Team Status: Active Member Role/Relationship Status Dates Dr. Mei Cummins MD Primary Care Provider Active Start: June 04, 2024 Dr. Aj Martinez MD Emergency Provider Active Start: June 04, 2024 Dr. Elizabeth Santamaria MD Admit Provider Active St art: June 04, 2024 Dr. Elizabeth Santamaria MD Other Provider Active St art: June 04, 2024 Dr. Jacob Suazo DO Referring Provider Active Start: June 04, 2024 Dr. Jacob Suazo DO Other Provider Active Start: June 04, 2024 Dr. Garcia Moreno DO Attending Provider Active Start: June 04, 2024 Team Status: Active Member Role/Relationship Status Dates Dr. Mei Cummins MD Primary Care Provider Active Start: June 05, 2024 Dr. Aj Martinez MD Emergency Provider Active Start: June 05, 2024 Dr. Elizabeth Santamaria MD Admit Provider Active St art: June 05, 2024 Dr. Elizabeth Santamaria MD Other Provider Active St art: June 05, 2024 Dr. Jacob Suazo DO Attending Provider Active Start: June 05, 2024 Dr. Jacob Suazo DO Other Provider Active Start: June 05, 2024 Team Status: Inactive Member Role/Relationship Status Dates JAYY Otero Attending Provider Active Start: June 08, 2024 End: June 08, 2024 Dr. Mei Cummins MD Primary Care Provider Active Start: June 08, 2024 End: June 08, 2024 Dr. Mei Cummins MD Referring Provider Active Start: June 08, 2024 End: June 08, 2024 Team Status: Inactive Member Role/Relationship Status Dates Dr. Mei Cummins MD Primary Care Provider Active Start: June 08, 2024 End: June 08, 2024 JAYY Otero Attending Provider Active Start: June 08, 2024 End: June 08, 2024 JAYY Otero Referring Provider Active Start: June 08, 2024 End: June 08, 2024 Team Status: Inactive Member Role/Relationship Status Dates Dr. Mei Cummins MD Primary Care Provider Active Start: June 10, 2024 End: June 10, 2024 JAYY Otero Attending Provider Active Start: June 10, 2024 End: June 10, 2024 JAYY Otero Referring Provider Active Start: June 10, 2024 End: June 10, 2024 Team Status: Inactive Member Role/Relationship Status Dates Dr. Mei Cummins MD Primary Care Provider Active Start: June 13, 2024 End: June 13, 2024 Dr. Mei Cummins MD Referring Provider Active Start: June 13, 2024 End: June 13, 2024 Dr. Garcia Moreno DO Attending Provider Active Start: June 13, 2024 End: June 13, 2024 Team Status: Inactive Member Role/Relationship Status Dates Dr. Mei Cummins MD Primary Care Provider Active Start: June 13, 2024 End: June 13, 2024 Teresa Garner Attending Provider Active Start : June 13, 2024 End: June 13, 2024 Teresa Garner Referring Provider Active Start : June 13, 2024 End: June 13, 2024 MARY LOU Kent Other Provider Active Start : June 13, 2024 End: June 13, 2024 Team Status: Inactive Member Role/Relationship Status Dates Dr. Mei Cummins MD Primary Care Provider Active Start: June 22, 2024 End: June 29, 2024 Dr. Juan Carlos Viveros DPM Referring Provider Active Start: June 22, 2024 End: June 29, 2024 Dr. Rasta Mazariegos DPM Attending Provider Active Start: June 22, 2024 End: June 29, 2024 Team Status: Inactive Member Role/Relationship Status Dates Dr. Mei Cummins MD Primary Care Provider Active Start: June 30, 2024 End: June 30, 2024 Dr. Mei Cummins MD Referring Provider Active Start: June 30, 2024 End: June 30, 2024 JAYY Otero Attending Provider Active Start: June 30, 2024 End: June 30, 2024 Team Status: Inactive Member Role/Relationship Status Dates Dr. Mei Cummins MD Primary Care Provider Active Start: June 30, 2024 End: June 30, 2024 JAYY Otero Attending Provider Active Start: June 30, 2024 End: June 30, 2024 JAYY Otero Referring Provider Active Start: June 30, 2024 End: June 30, 2024 Team Status: Inactive Member Role/Relationship Status Dates Dr. Mei Cummins MD Primary Care Provider Active Start: July 27, 2024 End: July 30, 2024 Dr. Juan Carlos Viveros DPM Referring Provider Active Start: July 27, 2024 End: July 30, 2024 Dr. Rasta Mazariegos DPM Attending Provider Active Start: July 27, 2024 End: July 30, 2024 Team Status: Inactive Member Role/Relationship Status Dates Dr. Mei Cummins MD Primary Care Provider Active Start: August 24, 2024 End: August 29, 2024 Dr. Juan Carlos Viveros DPM Referring Provider Active Start: August 24, 2024 End: August 29, 2024 Dr. Rasta Mazariegos DPM Attending Provider Active Start: August 24, 2024 End: August 29, 2024 Broadcast Operations Manager Relationship Specialty Start Date End Date Mei Cummins MD [address] [place], [place] [id number] PCP - General Family Medicine 12/17/16 Salazar Meraz DO [address] [place], [place] [id number] Hematology/Oncology 06/17/23 Jamshid Brown, VANNA.LEGAL STENOGRAPHER [address] [place] [address] Detention Officer Family Medicine 02/16/24 Broadcast Operations Manager Relationship Specialty Start Date End Date Mei Cummins MD [address] [place] [address] PCP - General Family Medicine 12/17/16 Salazar Meraz DO [address] [facility] [place] [address] Hematology/Oncology 06/17/23 Jamshid Brown APRN.DANELLE [address] [place] [place] [address] Detention Officer Family Medicine 02/16/24 Goals (unrecognized section and content) Goals may be documented in a n alternate sectionGoals may be documented in an alternate sectionGoals may be documented in an alternate sectionGoals may be documented in an alternate sectionGoals may be documented in an alternate sectionGoals may be documented in an alternate sectionGoals may be documented in an alternate section FOR RECORDS PERTAINING TO PATIENTS WHO ARE OR HAVE BEEN ENROLLED IN A CHEMICAL DEPENDENCY/SUBSTANCEABUSE PROGRAM, SOME INFORMATION MAY BE OMITTED. This clinical summary was aggregated from multiple sources. Caution should be exercised in using it in the provision of clinical care. This summary normalizes information from multiple sources, and as a consequence, information in this document may materially change the coding, format and clinical context of patient data. In addition, data may be omitted in some cases. CLINICAL DECISIONS SHOULD BE BASED ON THE PRIMARY CLINICAL RECORDS. [employer] provides no warranty or guarantee of the accuracy or completeness of information in this document.
[2024-09-17 12:04] LABS: Anion Gap 12 (5-15); BUN 19 mg/dL (4-19); BUN/Creat Ratio 26.9 RATIO (10-20); Calcium,Total 8.7 mg/dL (7.6-11.0); Carbon Dioxide 22.4 mmol/L (21.0-32.0); Chloride 105 mmol/L (98-108); Estimated Creatinine Clearance 73.61 ml/min (50-250); Glucose 114 mg/dL (70-99); Potassium 4.1 mmol/L (3.3-5.1)
[2024-09-17 12:50] VITALS: BP 94/76; PULSE 76
[2024-09-17 13:14] VITALS: BP 104/74; PULSE 76; RESP 22; TEMP 36.6; O2SAT 97
== END 2024-09-17 13:14 | disposition home or self-care (01) ==
PROVIDERS: Emergency Provider Emergency Medicine; PCP Family Medicine; Visit Provider Emergency Medicine
DX: K62.5 Hemorrhage of anus and rectum (principal); J44.9 Chronic obstructive pulmonary disease, unspecified; Z86.711 Personal history of pulmonary embolism; E78.00 Pure hypercholesterolemia, unspecified; I10 Essential (primary) hypertension; Z87.891 Personal history of nicotine dependence; I25.10 Atherosclerotic heart disease of native coronary artery without angina pectoris; Z85.46 Personal history of malignant neoplasm of prostate; Z79.01 Long term (current) use of anticoagulants; D64.9 Anemia, unspecified; Z85.118 Personal history of other malignant neoplasm of bronchus and lung; I25.2 Old myocardial infarction; Z99.81 Dependence on supplemental oxygen; Z79.51 Long term (current) use of inhaled steroids; Z79.899 Other long term (current) drug therapy; F32.A Depression, unspecified; F41.9 Anxiety disorder, unspecified; Z79.82 Long term (current) use of aspirin; Z95.1 Presence of aortocoronary bypass graft
CPT/HCPCS: 71046; 80048; 85027; 86850; 86900; 86901; 99283; A4216

== ENCOUNTER 2024-09-28 14:45 | Outpatient (RCR) | payer MEDICARE, BC, SELFPAY ==
[2024-08-31 14:39] VITALS: BP 129/78; PULSE 79; RESP 22; TEMP 36.1
--- NOTE | 2024-08-31 15:00 | PN.PCM_ITS ---
History of Present Illness Date of Service: 08/31/24 Chief Complaint: Left medial ankle ulcer History of Wound: Patient is a very pleasant 83 year old male with a left medial ankle ulcer that he has been seeing director speech and hearing, Dr. Drew. Patient has a significant history for COPD that he sees Palliative care to help manage. He is on home O2. He also has a history of Prostate CA, Squamous carcinoma of left lung, HTN, anxiety and depression, AAA without rupture, CAD, coronary artery stent placement (multiple), CABG x 3, former smoker, PAD, PBH, and pulmonary embolism- on anticoagulants, and hyperlipidemia. He has had arterial studies in the past and had some vascular procedures (by Dr. Freeman) to his left leg. He denies hx of diabetes. His providers are all with [facility]. He has had this left medial ankle ulcer for 3 months. He has been placing Santyl covered with [place] SAP. There has not been much improvement to this area. He states that he was referred to see us by [facility] and that Dr. Drew also suggested he get a second opinion. He is on a new medication that his states is an antibiotic but they are unsure of the name. He denies fever, chills, nausea or vomiting. He comes in today for further evaluation and treatment. Progress of Wound: Chronic slow healing ulceration appreciated to the medial ankle and dorsal first metatarsal phalangeal joint left foot. Subjective Subjective Patient is 84-year-old male with a past medical history of peripheral arterial disease. He is presenting to the wound care center today for follow-up evaluation of 2 wounds to the left lower extremity 1 at the medial ankle and the other at the dorsal aspect of the first metatarsal phalangeal joint. Patient has been compliant to left the graft clean dry and intact. His has been doing dressing changes with AMD antimicrobial pad to the dorsal big toe joint full-thickness wound. Patient unfortunately sustained a fall on Thursday at his brother's house and hit his head he did not present to the emergency room for evaluation. Since then he has been having some pain to the big toe joint due to trauma. Otherwise he is doing well. He did not blackout during his fall. He denies constitutional symptoms. No other pedal complaints at this time. Objective Data Objective Data Vital Signs: Vital Signs Temp Pulse Resp BP 97 F L 79 22 H 129/78 H 08/31/24 14:39 08/31/24 14:39 08/31/24 14:39 08/31/24 14:39 Physical Exam Narrative Vascular: DP and PT pulses are faintly palpable. CFT is brisk. Blanchable erythema to the periwound of the dorsal first metatarsal phalangeal joint left foot. Neurological: Light touch intact. Patient does despond painful stimuli. Dermatological: Full-thickness wound to the dorsal aspect left foot first metatarsal phalangeal joint measuring 0.8 x 1.6 x 0.1 cm. Periwound erythema which is blanchable. No sign of infection evidence of intact graft to the left medial ankle full-thickness wound. Excisional debridement down to including subcutaneous tissue to left lower extremity first metatarsal phalangeal joint dorsally with a #3 minimally dermal curette done without incident. Predebridement measurement was 0.7 x 1.5 x 0.1 cm. Postdebridement measurement is 0.8 x 1.6 x 0.1 cm. Musculoskeletal: No pain to palpation to full-thickness wound to the left lower extremity medial ankle. No pain with calf pressure. Debridement Note Debridement Note Debridement Free Text: Excisional debridement down to including subcutaneous tissue to left lower extremity first metatarsal phalangeal joint dorsally with a #3 minimally dermal curette done without incident. Predebridement measurement was 0.7 x 1.5 x 0.1 cm. Postdebridement measurement is 0.8 x 1.6 x 0.1 cm. Post-Debridement Measurements and Additional Note: Post-Debridement Measurements/Treatment - Nurse 1 - General Ulcer Assessment Start: 08/31/24 14:38 Freq: Status: Active Protocol: [email or web address] Activity Type Activity Date Activity User E-sign Co-sign Detail Recorded Client Recorded Date Recorded By Document 08/31/24 14:39 DL [id number] 08/31/24 14:44 DL 08/31/24 14:39 - Today's Visit Information Type of service Follow-up Visit (Physician/SOIL CONSERVATIONIST ) Arrival Mode Wheelchair Transfer Assistance Manual Transfer Assist (Other) x1 Patient Identification Verified (Name & Yes ) Patient Requires Transmission-Based No Precautions Safety Precautions Fall Prevention Vital Signs Temperature (97.8 F-99.1 F) 97 F L Temperature Source Temporal Pulse Rate (60-100) 79 Pulse Location Monitor Respiratory Rate (12-18) 22 H Respiratory rate source Observation Blood Pressure (90/60-120/80) 129/78 H Blood Pressure Mean (mm Hg) 95 Source Monitor History Since Last Visit- (Skip if this is Patient's initial visit) Have you changed medications since your No last visit? Any new allergies or adverse reactions No Had a fall/change in ADL's that may No increase risk of falls Signs or symptoms of abuse and/or No neglect since last visit Have you been in the hospital since your No last visit? Has dressing in place as prescribed Yes Has compression in place as prescribed Yes Has offloadiing in place as prescribed Yes Experienced any changes in pain level or No management Pain Scale: 0-10 Numeric Is Patient Pain Free? Yes WC - Nurse 1 - General Ulcer Measurement Start: 08/31/24 14:38 Freq: Status: Active Protocol: Activity Type Activity Date Activity User E-sign Co-sign Detail Recorded Client Recorded Date Recorded By Document 08/31/24 14:39 DL [id number] 08/31/24 14:44 DL 08/31/24 14:39 Wound Center Nurse 1 3-left foot -Current Size (cm) - Length 0.8 -Current Size (cm) - Width 1.6 -Current Size (cm) - Depth 0.2 -Total Square Cm 1.28 -Exudate Amt Medium -Exudate Type Serosanguineous -Wound Margin Distinct, Outline Attached -Granulation Amt None Present (0 %) -Necrosis Amt Large (67-100%) -Necrotic Tissue Type Adherent Slough -Structure Exposed N/A -Texture (Bell-wound Skin Appearance) Scarring -Moisture (Bell-wound Skin Appearance) Dry/Scaly -Color (Bell-wound Skin Appearance) Erythema -Temperature (Bell-wound Skin No Abnormality Appearance) (Pt Warm) -Ulcer Cleansing Rinsed/ Irrigated with Saline -Foul Odor after Cleansing No -Anesthetic Used 5% Lidocaine Gel #1- L MEDIAL ANKLE -Current Size (cm) - Length 1 -Current Size (cm) - Width 1 -Current Size (cm) - Depth 0.1 -Total Square Cm 1 -Exudate Amt Small -Wound Margin Distinct, Outline Attached -Structure Exposed N/A -Texture (Bell-wound Skin Appearance) Scarring -Moisture (Bell-wound Skin Appearance) Dry/Scaly -Color (Bell-wound Skin Appearance) No Abnormality -Temperature (Bell-wound Skin No Abnormality Appearance) (Pt Warm) -Tenderness on Palpation (Bell-wound No Skin Appearance) -Foul Odor after Cleansing No -Wound Comment(s) Epicord intact. left inplace. WC - Nurse 2 - General Ulcer CM Notes Start: 08/31/24 14:38 Freq: Status: Active Protocol: Activity Type Activity Date Activity User E-sign Co-sign Detail Recorded Client Recorded Date Recorded By Document 08/31/24 14:49 [id number] 08/31/24 14:52 08/31/24 14:49 Wound Center Nurse 2 3-left foot -Time 14:49 -Correct Patient Yes -Correct Side, Site, Position Yes -Correct Procedure Yes -Procedure Performed Yes -Type of Procedure Debridement -Clinical Debridement Subcutaneous -Tissue Removed Subcutaneous -Post Debridement (cm) - Length 0.8 -Post Debridement (cm) - Width 1.6 -Post Debridement (cm) - Depth 0.1 -Total Square (Post) (cm) 1.28 -Area of Debridement (cm) - Length 0.8 -Area of Debridement (cm) - Width 1.3 -Total Square (Area) (cm) 1.04 -Tunneling No -Undermining/Tunneling No -Circular Undermining No -Wound/Ulcer Outcome Not Healed -Ulcer Cleansing Rinsed/ Irrigated with Saline -Foul Odor after Cleansing No -Bioengineered Tissue No -Bleeding Controlled with Pressure -Treatment Response Procedure Tolerated Well -Offloading No -Debridement - Subq, 1st 20sq cm Yes #1- L MEDIAL ANKLE -Correct Patient Yes -Correct Side, Site, Position No -Correct Procedure No -Procedure Performed No -Wound/Ulcer Outcome Not Healed Pain Scale: 0-10 Numeric Is Patient Pain Free? 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 All findings were discussed with the patient. All questions were answered to the patient's satisfaction. Excisional debridement down to including subcutaneous tissue to left lower extremity first metatarsal phalangeal joint dorsally with a #3 minimally dermal curette done without incident. Predebridement measurement was 0.7 x 1.5 x 0.1 cm. Postdebridement measurement is 0.8 x 1.6 x 0.1 cm. The full-thickness wound was wiped clean and patted dry. Triple antibiotic and AMD pad were applied. Patient was dispensed extra dressing supplies. The medial ankle full- thickness wound with graft application will remain clean dry and intact. They are not to change the graft at this time. They will continue with every other day dressing changes to the big toe joint dorsal full-thickness wound to the left foot. I did educate the patient and his that if we are still dealing with the same size wound at the end of August I will recommend referral and consultation with vascular surgery for potential intervention. Educated the patient on the importance of elevation to the bilateral lower extremity whenever he is at rest. He was understanding this. Educated the patient to keep the dressing clean dry and intact. Continue dietary supplements/Joon twice daily until follow-up. The patient will follow-up with with Dr. Blunt in 1 week [address] then with Dr. Mazariegos in 2 week. (2) Non-pressure chronic ulcer of other part of left foot with fat layer exposed: CODE(S): L97.522 - Non-pressure chronic ulcer of other part of left foot with fat layer exposed (3) Other specified peripheral vascular diseases: CODE(S): I73.89 - Other specified peripheral vascular diseases
[2024-09-07 11:27] VITALS: BP 121/45; PULSE 78; RESP 18; TEMP 35.9
--- NOTE | 2024-09-07 13:59 | WC ---
PHOTO 09/07/24 LEFT FOOT
--- NOTE | 2024-09-07 14:00 | WC ---
PHOTO 09/07/24 LEFT TELLO ANKLE
--- NOTE | 2024-09-11 17:38 | HP.PCM_ITS ---
History of Present Illness Date of Service: 09/07/24 Chief Complaint: Left medial ankle and left foot ulcers History of Wound: This is an 84-year-old male with a left medial ankle ulcer that had been seeing Service Worker Helper, Dr. Drew, at the [facility]. The patient has a significant history for COPD, and is on home O2. He also has a history of Prostate CA, Squamous carcinoma of left lung, HTN, anxiety and depression, AAA without rupture, CAD, coronary artery stent placement (multiple) , CABG x 3, former smoker, PAD, PBH, and pulmonary embolism-on anticoagulants, and hyperlipidemia. He has had arterial studies in the past and had some vascular procedures (by Dr. Freeman) to his left leg. He denies a history of diabetes. His providers are all with [facility]. He has had this left medial ankle ulcer for more than 3 months. He had been placing Santyl covered with [place] [employer]. There had not been much improvement to this area, and he was referred to see us by [facility], and that Dr. Drew also suggested he get a second opinion. The patient is seen at this time as a courtesy to his regular Wound Center provider, Dr. Rasta Mazariegos, who is unavailable this week. [facility] Medical History Chronic respiratory failure with hypoxia and hypercapnia COPD exacerbation Angina at rest Pulmonary embolus COVID Fecal occult blood test positive Abnormal chest CT COPD with acute exacerbation Squamous cell carcinoma of left lung Lung mass Depression Myocardial infarct Coronary artery disease Pulmonary neoplasm Wears glasses Wears dentures Cancer Anxiety Abrasion History of steroid therapy Prostate disease High cholesterol Injury of back Syncope History of weight loss Former smoker COPD (chronic obstructive pulmonary disease) On home oxygen therapy Shortness of breath on exertion Chronic cough History of stress test Cardiology follow-up encounter Chest pain No pertinent family history 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 Nocturnal hypoxemia Chronic hypoxemic respiratory failure Bronchiectasis Prostate CA CAD (coronary artery disease) HLD (hyperlipidemia) Benign essential HTN Home Medications ?Medication ?Instructions ?Recorded ?Last Taken ?Type nitroglycerin 0.4 mg sublingual 0.4 mg sublingual Q5M PRN Chest 12/29/14 1 Week Ago History tablet Pain ~07/02/20 fluticasone propionate 230 2 puff inhalation BID breat nicho 08/07/22 06/03/24 History mcg-salmeterol 21 mcg/actuation HFA inhaler (Advair HFA) atorvastatin 40 mg tablet 40 mg PO QHS cholesterol 06/02/24 History duloxetine 30 mg capsule,delayed 30 mg PO QPM DEPRESSI ON 03/25/23 06/02/24 History release tamsulosin 0.4 mg capsule 0.4 mg PO QPM BLADDER/ PROST ATE 03/25/23 06/02/24 History tiotropium bromide 2.5 2 puff inhalation DAILY copd 03/25/23 06/03/24 History mcg/actuation mist for inhalation (Spiriva Respimat) ezetimibe 10 mg tablet 10 mg PO DAILY cholesterol 0 09/28/23 06/02/24 History albuterol sulfate 90 mcg/actuation 2 puff inhalation Q 4H PRN wheezing 02/19/24 Unknown History aerosol inhaler aspirin 81 mg tablet,delayed 81 mg PO DAILY heart 01/3106/02/24 History release (Enteric Coated Aspirin) oxycodone 5 mg tablet 5 mg PO Q4H PRN chronic pain 02/21/24 06/03/24 History ondansetron 4 mg disintegrating 4 mg PO DAILY PRN naus ea and 03/30/24 05/29/24 History tablet vomiting roflumilast 500 mcg tablet 500 mcg PO DAILY 03/30/24 0 06/03/24 History collagenase clostridium histo. 250 1 applic topical DA KAREN 05/22/24 05/21/24 History unit/gram topical ointment (Santyl) guaifenesin 600 mg tablet, 1,200 mg PO BID PRN cough 0 05/22/24 06/03/24 History extended release 12 hr (Mucinex) metoprolol tartrate 50 mg tablet 50 mg PO BID #60 tabs 05/24/24 06/03/24 Rx furosemide 20 mg tablet (Lasix) 20 mg PO DAILY PRN chris ght gain 30 06/05/24 05/21/24 Rx days #0 tabs lorazepam 1 mg tablet 1 mg PO TID PRN anxiety 30 d ays #0 06/05/24 06/02/24 Rx tabs sulfamethoxazole 800 1 tab PO BID 2 weeks #28 tab s 06/15/24 Unknown Rx mg-trimethoprim 160 mg tablet (Bactrim DS) Allergy/AdvReac Type Severity Reaction Status Date / Time isosorbide (From Imdur) Allergy Other-patient Verified 06/03/24 15:00 blacks out Family History Mother Cancer Father Heart disease COPD (chronic obstructive pulmonary disease) Surgical History Hx of pneumonectomy Hx of CABG Hx of CABG Hx of heart artery stent Hx of transurethral resection of prostate Social History household members: spouse Smoking Status: Former smoker Tobacco: How many years used: 45 Electronic Cigarette Use: not used how long ago did patient quit smokin, second hand exposure: Yes alcohol intake: never substance use type: does not use Physical Exam Const alert, oriented x3 and no apparent distress General Appearance: cooperative and well developed Orientation / Consciousness: awake, oriented to person, oriented to place and oriented to time HEENT normocephalic and head/scalp atraumatic Head and Scalp: normal to inspection, normocephalic and atraumatic Face and Sinus: normal facial exam Nose: external nose normal External Ear: external ears normal Eyes EOMs intact bilaterally General Eye: normal appearance of both eyes Resp normal respiratory effort, normal air movement, no retractions and no use of accessory muscles Effort and Inspection: able to speak in complete sentences Skin Wound Narrative: An ulceration is noted on the left medial malleolus, which extends through all layers of the dermis and into the subcutaneous tissues. There is a moderate amount of bioburden and slough, with evidence of residual portions of a prior cellular tissue product. Mild undermining is noted circumferentially. There is no sign of infection or cellulitis. Dimensions are documented elsewhere. There is also an ulceration on the medial aspect of the left first metatarso- phalangeal joint. This ulceration demonstrates a large amount of slough and nonviable tissue, and extends through all layers of the dermis and into the subcutaneous tissues. Mild bell-ulcer erythema is noted. Dimensions are documented elsewhere. The lower extremities demonstrate moderate swelling and edema. Neuro oriented x3, CN's II-XII intact bilaterally and moves all extremities Sensorium / Orientation: awake, alert, oriented to person, oriented to place and oriented to time Speech: speech normal Psych Appearance: grossly normal and appropriate Attitude: calm Activity / Motor Behavior: appropriate eye contact Speech: normal speech Mood & Affect: euthymic mood Thought Process: normal thought process Thought Content: normal thought content Attention / Concentration: attention grossly intact Debridement Note Debridement Note Wound debrided: Ulcerations of the left medial ankle and first metatarsal phalangeal joint Laterality: Left Type of Debridement: Excisional debridement Anesthesia Used: 5% Lidocaine Gel Depth: Down to and including healthy tissue and in the subcutaneous layer Percentage of wound debrided: 100 Instrument Used: 5mm curette Tissue Removed: Bioburden, slough, devitalized tissue, residual cellular tissue product Severity: Fat Layer Exposed Amount of bleeding with debridement: Mild Bleeding Controlled with: Compression and gauze Patient tolerated procedure: Patient tolerated procedure well Post-Debridement Measurements and Additional Note: Post-Debridement Measurements/Treatment - Nurse 1 - General Ulcer Assessment Start: 08/31/24 14:38 Freq: Status: Active Protocol: MILENA Activity Type Activity Date Activity User E-sign Co-sign Detail Recorded Client Recorded Date Recorded By Document 08/31/24 14:39 DL [id number] 08/31/24 14:44 DL Document 09/07/24 11:27 KW [id number] 09/07/24 11:35 KW 08/31/24 09/07/24 14:39 11:27 - Today's Visit Information Type of service Follow-up Visit Follow-up Visit (Physician/[employer] (Physician/[employer]CHITECT ) ) Arrival Mode Wheelchair Wheelchair Transfer Assistance Manual Transfer Assist (Other) x1 Accompanied by Patient Identification Verified (Name & Yes Yes ) Patient Requires Transmission-Based No Precautions Safety Precautions Fall Prevention Vital Signs Temperature (97.8 F-99.1 F) 97 F L 96.7 F L Temperature Source Temporal Temporal Pulse Rate (60-100) 79 78 Pulse Location Monitor Monitor Respiratory Rate (12-18) 22 H 18 Respiratory rate source Observation Observation Oxygen Delivery Method Nasal Cannula Blood Pressure (90/60-120/80) 129/78 H 121/45 H Blood Pressure Mean 95 70 Source Monitor Monitor Position Semi-Fowlers Blood Pressure Location Left Arm History Since Last Visit- (Skip if this is Patient's initial visit) Have you changed medications since your No No last visit? Any new allergies or adverse reactions No No Had a fall/change in ADL's that may No No increase risk of falls Signs or symptoms of abuse and/or No No neglect since last visit Have you been in the hospital since your No No last visit? Has dressing in place as prescribed Yes Yes Has compression in place as prescribed Yes Yes Has offloadiing in place as prescribed Yes Yes Experienced any changes in pain level or No No management Left Footwear Surgical Shoe with pressure relief insole Right Footwear Regular Shoe Pain Scale: 0-10 Numeric Is Patient Pain Free? Yes Yes WC - Nurse 1 - General Ulcer Measurement Start: 08/31/24 14:38 Freq: Status: Active Protocol: Activity Type Activity Date Activity User E-sign Co-sign Detail Recorded Client Recorded Date Recorded By Document 08/31/24 14:39 DL [id number] 08/31/24 14:44 DL Document 09/07/24 11:27 KW [id number] 09/07/24 11:35 KW 08/31/24 09/07/24 14:39 11:27 Wound Center Nurse 1 3-left foot -Current Size (cm) - Length 0.8 1.9 -Current Size (cm) - Width 1.6 0.8 -Current Size (cm) - Depth 0.2 0.3 -Total Square Cm 1.28 1.52 -Exudate Amt Medium Medium -Exudate Type Serosanguineous Serosanguineous -Wound Margin Distinct, Distinct, Outline Outline Attached Attached -Granulation Amt None Present (0 Small (1-33%) %) -Granulation Quality Oak Level -Necrosis Amt Large (67-100%) Large (67-100%) -Necrotic Tissue Type Adherent Slough Adherent Slough -Structure Exposed N/A -Texture (Bell-wound Skin Appearance) Scarring Assessed, Localized Edema -Moisture (Bell-wound Skin Appearance) Dry/Scaly Assessed -Color (Bell-wound Skin Appearance) Erythema Assessed, Erythema -Temperature (Bell-wound Skin No Abnormality No Abnormality Appearance) (Pt Warm) (Pt Warm) -Tenderness on Palpation (Bell-wound No Skin Appearance) -Ulcer Cleansing Rinsed/ Soap and Water Irrigated with Saline -Foul Odor after Cleansing No -Anesthetic Used 5% Lidocaine 5% Lidocaine Gel Gel #1- L MEDIAL ANKLE -Current Size (cm) - Length 1 0.9 -Current Size (cm) - Width 1 0.9 -Current Size (cm) - Depth 0.1 0.1 -Total Square Cm 1 0.81 -Date of Last Picture (Recall this 09/07/24 field) -Exudate Amt Small Small -Exudate Type Serosanguineous -Wound Margin Distinct, Distinct, Outline Outline Attached Attached -Granulation Amt None Present (0 %) -Necrosis Amt Large (67-100%) -Necrotic Tissue Type Eschar -Structure Exposed N/A -Texture (Bell-wound Skin Appearance) Scarring Assessed -Moisture (Bell-wound Skin Appearance) Dry/Scaly Assessed -Color (Bell-wound Skin Appearance) No Abnormality Assessed -Temperature (Bell-wound Skin No Abnormality No Abnormality Appearance) (Pt Warm) (Pt Warm) -Tenderness on Palpation (Bell-wound No No Skin Appearance) -Ulcer Cleansing Soap and Water -Foul Odor after Cleansing No No -Anesthetic Used 5% Lidocaine Gel -Wound Comment(s) Epicord intact. left inplace. Left Calf (cm) 27.5 Left Ankle (cm) 20.6 WC - Nurse 2 - General Ulcer CM Notes Start: 08/31/24 14:38 Freq: Status: Active Protocol: Activity Type Activity Date Activity User E-sign Co-sign Detail Recorded Client Recorded Date Recorded By Document 08/31/24 14:49 [id number] 08/31/24 14:52 Document 09/07/24 11:50 [id number] 09/07/24 12:03 08/31/24 09/07/24 14:49 11:50 Wound Center Nurse 2 3-left foot -Time 14:49 11:50 -Correct Patient Yes Yes -Correct Side, Site, Position Yes Yes -Correct Procedure Yes Yes -Procedure Performed Yes Yes -Type of Procedure Debridement Debridement -Clinical Debridement Subcutaneous Subcutaneous -Tissue Removed Subcutaneous Subcutaneous -Post Debridement (cm) - Length 0.8 0.7 -Post Debridement (cm) - Width 1.6 1.5 -Post Debridement (cm) - Depth 0.1 0.2 -Total Square (Post) (cm) 1.28 1.05 -Area of Debridement (cm) - Length 0.8 0.7 -Area of Debridement (cm) - Width 1.3 4.5 -Total Square (Area) (cm) 1.04 3.15 -Tunneling No No -Undermining/Tunneling No No -Circular Undermining No No -Wound/Ulcer Outcome Not Healed Not Healed -Ulcer Cleansing Rinsed/ Not Cleansed Irrigated with Saline -Foul Odor after Cleansing No No -Bioengineered Tissue No No -Bleeding Controlled with Pressure Pressure -Treatment Response Procedure Procedure Tolerated Well Tolerated Well -Offloading No No -Debridement - Subq, 1st 20sq cm Yes No #1- L MEDIAL ANKLE -Time 11:54 -Correct Patient Yes Yes -Correct Side, Site, Position No Yes -Correct Procedure No Yes -Procedure Performed No Yes -Type of Procedure Debridement -Clinical Debridement Subcutaneous -Tissue Removed Subcutaneous -Post Debridement (cm) - Length 0.8 -Post Debridement (cm) - Width 1.0 -Post Debridement (cm) - Depth 0.5 -Total Square (Post) (cm) 0.80 -Area of Debridement (cm) - Length 0.8 -Area of Debridement (cm) - Width 1.0 -Total Square (Area) (cm) 0.80 -Tunneling No -Undermining/Tunneling No -Circular Undermining Yes -Wound/Ulcer Outcome Not Healed Not Healed -Ulcer Cleansing Not Cleansed -Foul Odor after Cleansing No -Bioengineered Tissue No -Bleeding Controlled with Pressure -Treatment Response Procedure Tolerated Well -Debridement - Subq, 1st 20sq cm Yes Pain Scale: 0-10 Numeric Is Patient Pain Free? Yes Yes WC - Nurse 3 - General Ulcer D/C NN Start: 08/31/24 14:38 Freq: Status: Active Protocol: Activity Type Activity Date Activity User E-sign Co-sign Detail Recorded Client Recorded Date Recorded By Document 08/31/24 15:05 [facility] [id number] 08/31/24 15:07 [facility] Document 09/07/24 12:14 [id number] 09/07/24 12:16 08/31/24 09/07/24 15:05 12:14 Wound Care Center Nurse 3 3-left foot -Ulcer Cleansing Rinsed/ Not Cleansed Irrigated with Saline -Foul Odor after Cleansing No No -Primary Dressing Applied AMD Dressing Promogran 4x4 Tray Matter -Other Dressing drsg per dl director family -Primary Dressing Covered/Secured with Dry Gauze & Dry Gauze & Roll Gauze, Roll Gauze, Secured with Secured with Tape Tape -Other Covering atb oint -AMD Dressing 4x4 1 -Promogran Tray Matter 1 #1- L MEDIAL ANKLE -Ulcer Cleansing Not Cleansed -Foul Odor after Cleansing No -Other Dressing epicord -Primary Dressing Covered/Secured with Dry Gauze & Roll Gauze, Secured with Tape -Other Covering drsg per dl director family used remainder of tray LLE -Lotion applied to leg before No compression wrap -Tubular Bandage Single Layer Single Layer -Size of Tubigrip Used Size E Size D -Size D ($) 1 -Size E ($) 1 -Other applied per dl director family Treatment Response Procedure Tolerated Well Pain Scale: 0-10 Numeric Is Patient Pain Free? Yes Yes WC - Visit Discharge Discharge Condition Stable Stable Ambulatory Status Wheelchair Walker Transportation Private Auto Ambulance Accompanied by Charges/Coding Multi Select Codes Visit Charges Office Visit/Consults: 38882 OV L4 New 45 min Integumentary Integumentary CPT Codes: 15917 Nel subq tissue 20 sq cm/< Assessment/Plan Assessment/Plan (1) Non-pressure chronic ulcer of left ankle with fat layer exposed: CODE(S): L97.322 - Non-pressure chronic ulcer of left ankle with fat layer exposed (2) Non-pressure chronic ulcer of other part of left foot with fat layer exposed: CODE(S): L97.522 - Non-pressure chronic ulcer of other part of left foot with fat layer exposed (3) History of lung cancer: CODE(S): Z85.118 - Personal history of other malignant neoplasm of bronchus and lung (4) BPH (benign prostatic hyperplasia): CODE(S): N40.0 - Benign prostatic hyperplasia without lower urinary tract symptoms (5) Depression: CODE(S): F32.A - Depression, unspecified (6) Coronary artery disease: CODE(S): I25.10 - Atherosclerotic heart disease of [place] coronary artery without angina pectoris (7) Prostate CA: CODE(S): C61 - Malignant neoplasm of prostate (8) HLD (hyperlipidemia): CODE(S): E78.5 - Hyperlipidemia, unspecified QUALIFIERS: Hyperlipidemia type: unspecified Qualified Code(s): E78.5 - Hyperlipidemia, unspecified (9) Stage 3 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: CODE(S): J44.9 - Chronic obstructive pulmonary disease, unspecified (10) T[place]INO (dyspnea on exertion): CODE(S): R06.00 - Dyspnea, unspecified (11) History of coronary artery disease: CODE(S): Z86.79 - Personal history of other diseases of the circulatory system (12) CAD (coronary artery disease): CODE(S): I25.10 - Atherosclerotic heart disease of [place] coronary artery without angina pectoris QUALIFIERS: Coronary Disease-Associated Artery/Lesion type: [place] artery [place] vs. transplanted heart: [place] heart Associated angina: with other forms of angina Qualified Code(s): I25.118 - Atherosclerotic heart disease of [place] coronary artery with other forms of angina pectoris (13) Debility: CODE(S): R53.81 - Other malaise (14) COPD (chronic obstructive pulmonary disease): CODE(S): J44.9 - Chronic obstructive pulmonary disease, unspecified PLAN: Plan This is an 84-year-old male with multiple pre-existing medical problems. He has recently been under the care of Dr. Rasta Mazariegos, Service Worker Helper, relative to ulcerations on the left medial malleolus and the left medial first metatarso- phalangeal joint. A cellular tissue product has been used recently on 10 occasions relative to the left medial malleolus ulceration. For now, we are to implement the use of Tray to each of the 2 left lower extremity ulcerations, which will be changed on a daily basis. A Christian AMD foam dressing with PHMB had been used recently, but is currently not available. The patient is to follow-up with Dr. Mazariegos in 1 week. In the interim, the patient has been encouraged to elevate his lower extremities as much as possible. He has been encouraged to sleep on a flat mattress at night. Prolonged idle sitting has been discouraged. Given the patient's compromised respiratory status and reliance on oxygen therapy, enhancement of his activity level is not likely. We are to continue the use of Tubigrip garments bilaterally for compression. Evaluation of the patient's lower extremity arterial status may be of benefit. It is noted that the patient has been previously evaluated by Dr. Freeman, a Vascular Surgeon at the [facility]. Apparently, a partially successful right lower extremity revascularization was performed. Evaluation for possible left lower extremity revascularization may be warranted, and it is understood that the patient has been referred to Dr. Oliverio Allen for this purpose. Total time: 48 minutes
[2024-09-14 14:49] VITALS: BP 97/58; PULSE 73; RESP 18; TEMP 36.2
--- NOTE | 2024-09-15 15:01 | WC ---
PHOTO 09/14/24 LEFT [facility] ANKLE
--- NOTE | 2024-09-15 15:03 | WC ---
PHOTO 09/14/24 Justin HAMILTON
--- NOTE | 2024-09-17 00:35 | PN.PCM_ITS ---
History of Present Illness Date of Service: 09/14/24 Chief Complaint: Left medial ankle and left foot ulcers History of Wound: This is an 84-year-old male with a left medial ankle ulcer that had been seeing [facility] [employer] Specialist, Dr. Drew, at the [facility]. The patient has a significant history for COPD, and is on home O2. He also has a history of Prostate CA, Squamous carcinoma of left lung, HTN, anxiety and depression, AAA without rupture, CAD, coronary artery stent placement (multiple) , CABG x 3, former smoker, PAD, PBH, and pulmonary embolism-on anticoagulants, and hyperlipidemia. He has had arterial studies in the past and had some vascular procedures (by Dr. Freeman) to his left leg. He denies a history of diabetes. His providers are all with [facility]. He has had this left medial ankle ulcer for more than 3 months. He had been placing Santyl covered with [place] [facility]. There had not been much improvement to this area, and he was referred to see us by [facility], and that Dr. Drew also suggested he get a second opinion. The patient is seen at this time as a courtesy to his regular Wound Center provider, Dr. Rasta Mazariegos, who is unavailable this week. Progress of Wound: Chronic slow healing ulceration appreciated to the medial ankle and dorsal first metatarsal phalangeal joint left foot. Subjective Subjective Patient is 84-year-old male present to clinic today for follow-up evaluation of full-thickness wound to the left medial ankle and dorsal aspect of the first big toe joint. Patient has been compliant with dressing changes. He Juan some redness to the big toe joint as well as pain. He is weightbearing as tolerated. He denies trauma. Denies constitutional symptoms. No other pedal complaints at this time. Objective Data Objective Data Vital Signs: Vital Signs Temp Pulse Resp BP O2 Del Method 97.2 F L 73 18 97/58 L Nasal Cannula 09/14/24 14:49 09/14/24 14:49 09/14/24 14:49 09/14/24 14:49 09/14/24 14:49 Oxygen Delivery Method Nasal Cannula Lab / Micro Data Micro: Microbiology 09/15/24 14:41 Wound - Toe Gram Stain - Final 09/15/24 14:41 Wound - Toe Wound Culture - Preliminary Staphylococcus aureus Physical Exam Narrative Vascular: DP and PT pulses are faintly palpable. CFT is brisk. Blanchable erythema to the periwound of the dorsal first metatarsal phalangeal joint left foot. Neurological: Light touch intact. Patient does despond painful stimuli. Dermatological: Full-thickness wound to the left medial ankle measuring 1.0 x 1.0 x 0.3 cm. Negative probe to bone. Full-thickness wound to the dorsal aspect left foot first metatarsal phalangeal joint measuring 0.9 x 1.8 x 0.1 cm. Periwound erythema which is blanchable. Excisional debridement down to and including subcutaneous tissue, fascia and muscle to the left medial ankle full-thickness wound with a number 3 mm dermal curette and without incident. Predebridement measurement was 0.8 x 0.9 x 0.2 cm. Postdebridement measurement is 1.0 x 1.0 x 0.3 cm. Excisional debridement down to including subcutaneous tissue to left lower extremity first metatarsal phalangeal joint dorsally with a #3 minimally dermal curette done without incident. Predebridement measurement was 0.8 x 1.7 x 0.1 cm. Postdebridement measurement is 0.9 x 1.8 x 0.1 cm. Cx taken. Musculoskeletal: Pain on palpation to the left 1st MPJ full thickness wound. No pain with calf pressure. Debridement Note Debridement Note Debridement Free Text: Excisional debridement down to and including subcutaneous tissue, fascia and muscle to the left medial ankle full-thickness wound with a number 3 mm dermal curette and without incident. Predebridement measurement was 0.8 x 0.9 x 0.2 cm. Postdebridement measurement is 1.0 x 1.0 x 0.3 cm. Excisional debridement down to including subcutaneous tissue to left lower extremity first metatarsal phalangeal joint dorsally with a #3 minimally dermal curette done without incident. Predebridement measurement was 0.8 x 1.7 x 0.1 cm. Postdebridement measurement is 0.9 x 1.8 x 0.1 cm. Cx taken. Post-Debridement Measurements and Additional Note: Post-Debridement Measurements/Treatment FABIAN - Nurse 1 - General Ulcer Assessment Start: 08/31/24 14:38 Freq: Status: Active Protocol: LOWEXT Activity Type Activity Date Activity User E-sign Co-sign Detail Recorded Client Recorded Date Recorded By Document 08/31/24 14:39 DL [id number] 08/31/24 14:44 DL Document 09/07/24 11:27 KW [id number] 09/07/24 11:35 KW Document 09/14/24 14:49 KW [id number] 09/14/24 14:58 KW Edit Result 09/14/24 14:49 KW (1) [id number] 09/14/24 15:01 KW (1) Temperature (97.8 F-99.1 F) => 97.2 F L Pulse Rate (60-100) => 73 Blood Pressure (90/60-120/80) => 97/58 L Blood Pressure Mean (mm Hg) => 71 08/31/24 09/07/24 09/14/24 14:39 11:27 14:49 WC - Today's Visit Information Type of service Follow-up Visit Follow-up Visit Follow-up Visit (Physician/TRAFFIC SIGNAL TECHNICIAN (Physician/TRAFFIC SIGNAL TECHNICIAN (Physician/TRAFFIC SIGNAL TECHNICIAN ) ) ) Arrival Mode Wheelchair Wheelchair Wheelchair Transfer Assistance Manual Transfer Assist (Other) x1 Accompanied by Patient Identification Verified (Name & Yes Yes Yes ) Patient Requires Transmission-Based No Precautions Safety Precautions Fall Prevention Vital Signs Temperature (97.8 F-99.1 F) 97 F L 96.7 F L 97.2 F L Temperature Source Temporal Temporal Temporal Pulse Rate (60-100) 79 78 73 Pulse Location Monitor Monitor Monitor Respiratory Rate (12-18) 22 H 18 18 Respiratory rate source Observation Observation Observation Oxygen Delivery Method Nasal Cannula Nasal Cannula Blood Pressure (90/60-120/80) 129/78 H 121/45 H 97/58 L Blood Pressure Mean (mm Hg) 95 70 71 Source Monitor Monitor Monitor Position Semi-Fowlers Sitting Blood Pressure Location Left Arm Left Arm History Since Last Visit- (Skip if this is Patient's initial visit) Have you changed medications since your No No No last visit? Any new allergies or adverse reactions No No No Had a fall/change in ADL's that may No No No increase risk of falls Signs or symptoms of abuse and/or No No No neglect since last visit Have you been in the hospital since your No No No last visit? Has dressing in place as prescribed Yes Yes Yes Has compression in place as prescribed Yes Yes Yes Has offloadiing in place as prescribed Yes Yes N/A Experienced any changes in pain level or No No No management Left Footwear Surgical Shoe Regular Shoe with pressure relief insole Right Footwear Regular Shoe Regular Shoe Pain Scale: 0-10 Numeric Is Patient Pain Free? Yes Yes Yes WC - Nurse 1 - General Ulcer Measurement Start: 08/31/24 14:38 Freq: Status: Active Protocol: Activity Type Activity Date Activity User E-sign Co-sign Detail Recorded Client Recorded Date Recorded By Document 08/31/24 14:39 DL [id number] 08/31/24 14:44 DL Document 09/07/24 11:27 KW [id number] 09/07/24 11:35 KW Document 09/14/24 14:49 KW [id number] 09/14/24 14:58 KW 08/31/24 09/07/24 09/14/24 14:39 11:27 14:49 Wound Center Nurse 1 3-left foot -Current Size (cm) - Length 0.8 1.9 0.6 -Current Size (cm) - Width 1.6 0.8 1.8 -Current Size (cm) - Depth 0.2 0.3 0.2 -Total Square Cm 1.28 1.52 1.08 -Date of Last Picture (Recall this 09/14/24 field) -Exudate Amt Medium Medium Large -Exudate Type Serosanguineous Serosanguineous Serosanguineous -Wound Margin Distinct, Distinct, Thickened & Outline Outline Rolled Under Attached Attached -Granulation Amt None Present (0 Small (1-33%) Medium (34-66%) %) -Granulation Quality [place] Red -Necrosis Amt Large (67-100%) Large (67-100%) Medium (34-66%) -Necrotic Tissue Type Adherent Slough Adherent Slough Adherent Slough -Structure Exposed N/A -Texture (Bell-wound Skin Appearance) Scarring Assessed, Assessed, Localized Edema Localized Edema -Moisture (Bell-wound Skin Appearance) Dry/Scaly Assessed Assessed -Color (Bell-wound Skin Appearance) Erythema Assessed, Assessed, Erythema Erythema -Temperature (Bell-wound Skin No Abnormality No Abnormality No Abnormality Appearance) (Pt Warm) (Pt Warm) (Pt Warm) -Tenderness on Palpation (Bell-wound No No Skin Appearance) -Ulcer Cleansing Rinsed/ Soap and Water Soap and Water Irrigated with Saline -Foul Odor after Cleansing No No -Anesthetic Used 5% Lidocaine 5% Lidocaine 5% Lidocaine Gel Gel Gel #1- L MEDIAL ANKLE -Current Size (cm) - Length 1 0.9 1 -Current Size (cm) - Width 1 0.9 1 -Current Size (cm) - Depth 0.1 0.1 0.3 -Total Square Cm 1 0.81 1 -Date of Last Picture (Recall this 09/07/24 09/14/24 field) -Circular Undermining Yes -Exudate Amt Small Small Large -Exudate Type Serosanguineous Serosanguineous -Wound Margin Distinct, Distinct, Thickened & Outline Outline Rolled Under Attached Attached -Granulation Amt None Present (0 Small (1-33%) %) -Granulation Quality Red -Necrosis Amt Large (67-100%) Large (67-100%) -Necrotic Tissue Type Eschar Adherent Slough -Structure Exposed N/A -Texture (Bell-wound Skin Appearance) Scarring Assessed Assessed, Localized Edema -Moisture (Bell-wound Skin Appearance) Dry/Scaly Assessed Assessed -Color (Bell-wound Skin Appearance) No Abnormality Assessed Assessed, Erythema -Temperature (Bell-wound Skin No Abnormality No Abnormality No Abnormality Appearance) (Pt Warm) (Pt Warm) (Pt Warm) -Tenderness on Palpation (Bell-wound No No No Skin Appearance) -Ulcer Cleansing Soap and Water Soap and Water -Foul Odor after Cleansing No No No -Anesthetic Used 5% Lidocaine 5% Lidocaine Gel Gel -Wound Comment(s) Epicord intact. left inplace. Left Calf (cm) 27.5 27 Left Ankle (cm) 20.6 21.6 - Nurse 2 - General Ulcer CM Notes Start: 08/31/24 14:38 Freq: Status: Active Protocol: Activity Type Activity Date Activity User E-sign Co-sign Detail Recorded Client Recorded Date Recorded By Document 08/31/24 14:49 [id number] 08/31/24 14:52 Document 09/07/24 11:50 [id number] 09/07/24 12:03 Document 09/14/24 15:09 [id number] 09/14/24 15:11 08/31/24 09/07/24 09/14/24 14:49 11:50 15:09 Wound Center Nurse 2 3-left foot -Time 14:49 11:50 15:10 -Correct Patient Yes Yes Yes -Correct Side, Site, Position Yes Yes Yes -Correct Procedure Yes Yes Yes -Procedure Performed Yes Yes Yes -Type of Procedure Debridement Debridement Debridement -Clinical Debridement Subcutaneous Subcutaneous Muscle / Fascia -Tissue Removed Subcutaneous Subcutaneous Muscle -Post Debridement (cm) - Length 0.8 0.7 0.9 -Post Debridement (cm) - Width 1.6 1.5 1.8 -Post Debridement (cm) - Depth 0.1 0.2 0.2 -Total Square (Post) (cm) 1.28 1.05 1.62 -Area of Debridement (cm) - Length 0.8 0.7 0.9 -Area of Debridement (cm) - Width 1.3 4.5 1.8 -Total Square (Area) (cm) 1.04 3.15 1.62 -Tunneling No No No -Undermining/Tunneling No No No -Circular Undermining No No No -Wound/Ulcer Outcome Not Healed Not Healed Not Healed -Ulcer Cleansing Rinsed/ Not Cleansed Rinsed/ Irrigated with Irrigated with Saline Saline -Foul Odor after Cleansing No No No -Bioengineered Tissue No No No -Bleeding Controlled with Pressure Pressure Pressure -Treatment Response Procedure Procedure Procedure Tolerated Well Tolerated Well Tolerated Well -Offloading No No Yes -Type of Offloading Surgical Shoe -Debridement - Subq, 1st 20sq cm Yes No -Debridement - Muscle / Fascia, 1st No 20sq cm #1- L MEDIAL ANKLE -Time 11:54 15:09 -Correct Patient Yes Yes Yes -Correct Side, Site, Position No Yes Yes -Correct Procedure No Yes Yes -Procedure Performed No Yes Yes -Type of Procedure Debridement Debridement -Clinical Debridement Subcutaneous Muscle / Fascia -Tissue Removed Subcutaneous Muscle -Post Debridement (cm) - Length 0.8 1 -Post Debridement (cm) - Width 1.0 1 -Post Debridement (cm) - Depth 0.5 0.3 -Total Square (Post) (cm) 0.80 1 -Area of Debridement (cm) - Length 0.8 1 -Area of Debridement (cm) - Width 1.0 1 -Total Square (Area) (cm) 0.80 1 -Tunneling No No -Undermining/Tunneling No No -Circular Undermining Yes No -Wound/Ulcer Outcome Not Healed Not Healed Not Healed -Ulcer Cleansing Not Cleansed Rinsed/ Irrigated with Saline -Foul Odor after Cleansing No No -Bioengineered Tissue No No -Bleeding Controlled with Pressure Pressure -Treatment Response Procedure Procedure Tolerated Well Tolerated Well -Offloading Yes -Type of Offloading Surgical Shoe -Debridement - Subq, 1st 20sq cm Yes -Debridement - Muscle / Fascia, 1st Yes 20sq cm Pain Scale: 0-10 Numeric Is Patient Pain Free? Yes Yes Yes - Nurse 3 - General Ulcer D/C NN Start: 08/31/24 14:38 Freq: Status: Active Protocol: Activity Type Activity Date Activity User E-sign Co-sign Detail Recorded Client Recorded Date Recorded By Document 08/31/24 15:05 [facility] [id number] 08/31/24 15:07 [facility] Document 09/07/24 12:14 [id number] 09/07/24 12:16 08/31/24 09/07/24 15:05 12:14 Wound Care Center Nurse 3 3-left foot -Ulcer Cleansing Rinsed/ Not Cleansed Irrigated with Saline -Foul Odor after Cleansing No No -Primary Dressing Applied AMD Dressing Promogran 4x4 Tray Matter -Other Dressing drsg per dl public address announcer -Primary Dressing Covered/Secured with Dry Gauze & Dry Gauze & Roll Gauze, Roll Gauze, Secured with Secured with Tape Tape -Other Covering atb oint -AMD Dressing 4x4 1 -Promogran Tray Matter 1 #1- L MEDIAL ANKLE -Ulcer Cleansing Not Cleansed -Foul Odor after Cleansing No -Other Dressing epicord -Primary Dressing Covered/Secured with Dry Gauze & Roll Gauze, Secured with Tape -Other Covering drsg per dl public address announcer used remainder of tray LLE -Lotion applied to leg before No compression wrap -Tubular Bandage Single Layer Single Layer -Size of Tubigrip Used Size E Size D -Size D ($) 1 -Size E ($) 1 -Other applied per dl public address announcer Treatment Response Procedure Tolerated Well Pain Scale: 0-10 Numeric Is Patient Pain Free? 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 All findings were discussed with the patient. All questions were answered to the patient's satisfaction. Excisional debridement down to and including subcutaneous tissue, fascia and muscle to the left medial ankle full-thickness wound with a number 3 mm dermal curette and without incident. Predebridement measurement was 0.8 x 0.9 x 0.2 cm. Postdebridement measurement is 1.0 x 1.0 x 0.3 cm. Excisional debridement down to including subcutaneous tissue to left lower extremity first metatarsal phalangeal joint dorsally with a #3 minimally dermal curette done without incident. Predebridement measurement was 0.8 x 1.7 x 0.1 cm. Postdebridement measurement is 0.9 x 1.8 x 0.1 cm. Cx taken. The full-thickness wounds was wiped clean and patted dry. AMD pad were applied. Patient was dispensed extra dressing supplies. Dry sterile dressing and light compression wrap. Patient perform daily dressing changes to every other day dressing changes as discussed Will plan antibiotic coverage when culture results returned with sensitivity. Patient does not have any no known allergies at this time. Patient will continue daily supplementation. The patient will follow-up with with Dr. Blunt in 1 week [address] then with Dr. Mazariegos in 1 week. (2) Non-pressure chronic ulcer of other part of left foot with fat layer exposed: CODE(S): L97.522 - Non-pressure chronic ulcer of other part of left foot with fat layer exposed (3) Other specified peripheral vascular diseases: CODE(S): I73.89 - Other specified peripheral vascular diseases
[2024-09-21 14:56] VITALS: BP 113/64; PULSE 66; RESP 20; TEMP 36.3
--- NOTE | 2024-09-21 16:52 | PCM.WC.PN ---
History of Present Illness Date of Service: 09/21/24 Chief Complaint: Left medial ankle and left foot ulcers History of Wound: This is an 84-year-old male with a left medial ankle ulcer that had been seeing Cardiovascular Technician, Dr. Drew, at the [facility]. The patient has a significant history for COPD, and is on home O2. He also has a history of Prostate CA, Squamous carcinoma of left lung, HTN, anxiety and depression, AAA without rupture, CAD, coronary artery stent placement (multiple), CABG x 3, former smoker, PAD, PBH, and pulmonary embolism-on anticoagulants, and hyperlipidemia. He has had arterial studies in the past and had some vascular procedures (by Dr. Freeman) to his left leg. He denies a history of diabetes. His providers are all with [facility]. He has had this left medial ankle ulcer for more than 3 months. He had been placing Santyl covered with [place] [employer]. There had not been much improvement to this area, and he was referred to see us by [facility], and that Dr. Drew also suggested he get a second opinion. The patient is seen at this time as a courtesy to his regular Wound Center provider, Dr. Rasta Mazariegos, who is unavailable this week. Progress of Wound: Chronic slow healing ulceration appreciated to the medial ankle and dorsal first metatarsal phalangeal joint left foot. Subjective Subjective Patient is a 84-year-old male presenting to clinic today for follow-up evaluation of left foot full-thickness wound to the ankle and big toe joint. Patient has been doing dressing changes as discussed. He admits to some improvement but still has some pain to the big toe joint full-thickness wound to the left lower extremity. Patient is grateful for his care. Denies trauma. Denies constitutional symptoms. No other pedal complaints at this time. Objective Data Objective Data Vital Signs: Vital Signs Temp Pulse Resp BP O2 Del Method 97.3 F L 66 20 H 113/64 Nasal Cannula 09/21/24 14:56 09/21/24 14:56 09/21/24 14:56 09/21/24 14:56 09/14/24 14:49 Oxygen Delivery Method Nasal Cannula Lab / Micro Data Micro: Microbiology 09/15/24 14:41 Wound - Toe Gram Stain - Final 09/15/24 14:41 Wound - Toe Wound Culture - Final Staphylococcus aureus 09/15/24 14:41 Wound - Toe Anaerobic Culture - Final No anaerobic bacteria isolated. Physical Exam Narrative Vascular: DP and PT pulses are faintly palpable. CFT is brisk. Blanchable erythema to the periwound of the dorsal first metatarsal phalangeal joint left foot. Neurological: Light touch intact. Patient does despond painful stimuli. Dermatological: Full-thickness wound to the left medial ankle measuring 0.9 x 1.0 x 0.3 cm negative probe to bone. Full-thickness wound to the dorsal aspect left foot first metatarsal phalangeal joint measuring 0.8 x 1.1 x 0.2 cm. Periwound erythema which is blanchable. Excisional debridement down to and including subcutaneous tissue, fascia and muscle to the left medial ankle full-thickness wound with a number 3 mm dermal curette and without incident. Predebridement measurement was 0.8 x 0.9 x 0.1 cm. Postdebridement measurement is 0.9 x 1.0 x 0.3 cm. Excisional debridement down to including subcutaneous tissue to left lower extremity first metatarsal phalangeal joint dorsally with a #3 minimally dermal curette done without incident. Predebridement measurement was 0.7 x 1.0 x 0.1 cm. Postdebridement measurement is 0.8 x 1.1 x 0.2 cm. Musculoskeletal: Pain on palpation to the left 1st MPJ full thickness wound. No pain with calf pressure. Debridement Note Debridement Note Debridement Free Text: Excisional debridement down to and including subcutaneous tissue, fascia and muscle to the left medial ankle full-thickness wound with a number 3 mm dermal curette and without incident. Predebridement measurement was 0.8 x 0.9 x 0.1 cm. Postdebridement measurement is 0.9 x 1.0 x 0.3 cm. Excisional debridement down to including subcutaneous tissue to left lower extremity first metatarsal phalangeal joint dorsally with a #3 minimally dermal curette done without incident. Predebridement measurement was 0.7 x 1.0 x 0.1 cm. Postdebridement measurement is 0.8 x 1.1 x 0.2 cm. Post-Debridement Measurements and Additional Note: Post-Debridement Measurements/Treatment WC - Nurse 1 - General Ulcer Assessment Start: 08/31/24 14:38 Freq: Status: Active Protocol: WC.LOWEXT Activity Type Activity Date Activity User E-sign Co-sign Detail Recorded Client Recorded Date Recorded By Document 08/31/24 14:39 DL [id number] 08/31/24 14:44 DL Document 09/07/24 11:27 KW [id number] 09/07/24 11:35 KW Document 09/14/24 14:49 KW [id number] 09/14/24 14:58 KW Edit Result 09/14/24 14:49 KW (1) [id number] 09/14/24 15:01 KW Document 09/21/24 14:56 ML [id number] 09/21/24 14:59 ML (1) Temperature (97.8 F-99.1 F) => 97.2 F L Pulse Rate (60-100) => 73 Blood Pressure (90/60-120/80) => 97/58 L Blood Pressure Mean (mm Hg) => 71 08/31/24 09/07/24 09/14/24 14:39 11:27 14:49 - Today's Visit Information Type of service Follow-up Visit Follow-up Visit Follow-up Visit (Physician/GREASE AND TALLOW PUMPER (Physician/GREASE AND TALLOW PUMPER (Physician/GREASE AND TALLOW PUMPER ) ) ) Arrival Mode Wheelchair Wheelchair Wheelchair Transfer Assistance Manual Transfer Assist (Other) x1 Accompanied by Patient Identification Verified (Name & Yes Yes Yes ) Patient Requires Transmission-Based No Precautions Safety Precautions Fall Prevention Vital Signs Temperature (97.8 F-99.1 F) 97 F L 96.7 F L 97.2 F L Temperature Source Temporal Temporal Temporal Pulse Rate (60-100) 79 78 73 Pulse Location Monitor Monitor Monitor Respiratory Rate (12-18) 22 H 18 18 Respiratory rate source Observation Observation Observation Oxygen Delivery Method Nasal Cannula Nasal Cannula Blood Pressure (90/60-120/80) 129/78 H 121/45 H 97/58 L Blood Pressure Mean (mm Hg) 95 70 71 Source Monitor Monitor Monitor Position Semi-Fowlers Sitting Blood Pressure Location Left Arm Left Arm History Since Last Visit- (Skip if this is Patient's initial visit) Have you changed medications since your No No No last visit? Any new allergies or adverse reactions No No No Had a fall/change in ADL's that may No No No increase risk of falls Signs or symptoms of abuse and/or No No No neglect since last visit Have you been in the hospital since your No No No last visit? Has dressing in place as prescribed Yes Yes Yes Has compression in place as prescribed Yes Yes Yes Has offloadiing in place as prescribed Yes Yes N/A Experienced any changes in pain level or No No No management Left Footwear Surgical Shoe Regular Shoe with pressure relief insole Right Footwear Regular Shoe Regular Shoe Pain Scale: 0-10 Numeric Is Patient Pain Free? Yes Yes Yes 09/21/24 14:56 WC - Today's Visit Information Type of service Follow-up Visit (Physician/GREASE AND TALLOW PUMPER ) Arrival Mode Wheelchair Transfer Assistance None Transfer Assist (Other) Accompanied by Patient Identification Verified (Name & Yes ) Patient Requires Transmission-Based No Precautions Safety Precautions Vital Signs Temperature (97.8 F-99.1 F) 97.3 F L Temperature Source Temporal Pulse Rate (60-100) 66 Pulse Location Monitor Respiratory Rate (12-18) 20 H Respiratory rate source Observation Oxygen Delivery Method Blood Pressure (90/60-120/80) 113/64 Blood Pressure Mean (mm Hg) 80 Source Monitor Position Sitting Blood Pressure Location Left Arm History Since Last Visit- (Skip if this is Patient's initial visit) Have you changed medications since your No last visit? Any new allergies or adverse reactions No Had a fall/change in ADL's that may No increase risk of falls Signs or symptoms of abuse and/or No neglect since last visit Have you been in the hospital since your No last visit? Has dressing in place as prescribed Yes Has compression in place as prescribed N/A Has offloadiing in place as prescribed N/A Experienced any changes in pain level or No management Left Footwear Right Footwear Pain Scale: 0-10 Numeric Is Patient Pain Free? Yes - Nurse 1 - General Ulcer Measurement Start: 08/31/24 14:38 Freq: Status: Active Protocol: Activity Type Activity Date Activity User E-sign Co-sign Detail Recorded Client Recorded Date Recorded By Document 08/31/24 14:39 DL [id number] 08/31/24 14:44 DL Document 09/07/24 11:27 KW [id number] 09/07/24 11:35 KW Document 09/14/24 14:49 KW [id number] 09/14/24 14:58 KW Document 09/21/24 14:56 ML [id number] 09/21/24 14:59 ML 08/31/24 09/07/24 09/14/24 14:39 11:27 14:49 Wound Center Nurse 1 3-left foot -Current Size (cm) - Length 0.8 1.9 0.6 -Current Size (cm) - Width 1.6 0.8 1.8 -Current Size (cm) - Depth 0.2 0.3 0.2 -Total Square Cm 1.28 1.52 1.08 -Date of Last Picture (Recall this 09/14/24 field) -Exudate Amt Medium Medium Large -Exudate Type Serosanguineous Serosanguineous Serosanguineous -Wound Margin Distinct, Distinct, Thickened & Outline Outline Rolled Under Attached Attached -Granulation Amt None Present (0 Small (1-33%) Medium (34-66%) %) -Granulation Quality [place] Red -Slough/Fibrin -Necrosis Amt Large (67-100%) Large (67-100%) Medium (34-66%) -Necrotic Tissue Type Adherent Slough Adherent Slough Adherent Slough -Structure Exposed N/A -Texture (Bell-wound Skin Appearance) Scarring Assessed, Assessed, Localized Edema Localized Edema -Moisture (Bell-wound Skin Appearance) Dry/Scaly Assessed Assessed -Color (Bell-wound Skin Appearance) Erythema Assessed, Assessed, Erythema Erythema -Temperature (Bell-wound Skin No Abnormality No Abnormality No Abnormality Appearance) (Pt Warm) (Pt Warm) (Pt Warm) -Tenderness on Palpation (Bell-wound No No Skin Appearance) -Ulcer Cleansing Rinsed/ Soap and Water Soap and Water Irrigated with Saline -Foul Odor after Cleansing No No -Anesthetic Used 5% Lidocaine 5% Lidocaine 5% Lidocaine Gel Gel Gel #1- L MEDIAL ANKLE -Current Size (cm) - Length 1 0.9 1 -Current Size (cm) - Width 1 0.9 1 -Current Size (cm) - Depth 0.1 0.1 0.3 -Total Square Cm 1 0.81 1 -Date of Last Picture (Recall this 09/07/24 09/14/24 field) -Circular Undermining Yes -Exudate Amt Small Small Large -Exudate Type Serosanguineous Serosanguineous -Wound Margin Distinct, Distinct, Thickened & Outline Outline Rolled Under Attached Attached -Granulation Amt None Present (0 Small (1-33%) %) -Granulation Quality Red -Slough/Fibrin -Necrosis Amt Large (67-100%) Large (67-100%) -Necrotic Tissue Type Eschar Adherent Slough -Structure Exposed N/A -Texture (Bell-wound Skin Appearance) Scarring Assessed Assessed, Localized Edema -Moisture (Bell-wound Skin Appearance) Dry/Scaly Assessed Assessed -Color (Bell-wound Skin Appearance) No Abnormality Assessed Assessed, Erythema -Temperature (Bell-wound Skin No Abnormality No Abnormality No Abnormality Appearance) (Pt Warm) (Pt Warm) (Pt Warm) -Tenderness on Palpation (Bell-wound No No No Skin Appearance) -Ulcer Cleansing Soap and Water Soap and Water -Foul Odor after Cleansing No No No -Anesthetic Used 5% Lidocaine 5% Lidocaine Gel Gel -Wound Comment(s) Epicord intact. left inplace. Left Calf (cm) 27.5 27 Left Ankle (cm) 20.6 21.6 09/21/24 14:56 Wound Center Nurse 1 3-left foot -Current Size (cm) - Length 1.5 -Current Size (cm) - Width 1.5 -Current Size (cm) - Depth 0.2 -Total Square Cm 2.25 -Date of Last Picture (Recall this field) -Exudate Amt Medium -Exudate Type Serosanguineous -Wound Margin -Granulation Amt Medium (34-66%) -Granulation Quality -Slough/Fibrin Yes -Necrosis Amt Medium (34-66%) -Necrotic Tissue Type Adherent Slough -Structure Exposed -Texture (Bell-wound Skin Appearance) Assessed -Moisture (Bell-wound Skin Appearance) Assessed -Color (Bell-wound Skin Appearance) Assessed -Temperature (Bell-wound Skin No Abnormality Appearance) (Pt Warm) -Tenderness on Palpation (Bell-wound Yes Skin Appearance) -Ulcer Cleansing Rinsed/ Irrigated with Saline -Foul Odor after Cleansing No -Anesthetic Used 5% Lidocaine Gel #1- L MEDIAL ANKLE -Current Size (cm) - Length 1 -Current Size (cm) - Width 2 -Current Size (cm) - Depth 0.2 -Total Square Cm 2 -Date of Last Picture (Recall this field) -Circular Undermining -Exudate Amt Medium -Exudate Type Serosanguineous -Wound Margin Distinct, Outline Attached -Granulation Amt Medium (34-66%) -Granulation Quality -Slough/Fibrin Yes -Necrosis Amt Small (1-33%) -Necrotic Tissue Type Adherent Slough -Structure Exposed -Texture (Bell-wound Skin Appearance) Assessed -Moisture (Bell-wound Skin Appearance) Assessed -Color (Bell-wound Skin Appearance) Assessed -Temperature (Bell-wound Skin No Abnormality Appearance) (Pt Warm) -Tenderness on Palpation (Bell-wound Yes Skin Appearance) -Ulcer Cleansing Rinsed/ Irrigated with Saline -Foul Odor after Cleansing No -Anesthetic Used 5% Lidocaine Gel -Wound Comment(s) Left Calf (cm) Left Ankle (cm) WC - Nurse 2 - General Ulcer CM Notes Start: 08/31/24 14:38 Freq: Status: Active Protocol: Activity Type Activity Date Activity User E-sign Co-sign Detail Recorded Client Recorded Date Recorded By Document 08/31/24 14:49 [id number] 08/31/24 14:52 Document 09/07/24 11:50 [id number] 09/07/24 12:03 Document 09/14/24 15:09 [id number] 09/14/24 15:11 Document 09/21/24 15:11 [id number] 09/21/24 15:16 08/31/24 09/07/24 09/14/24 14:49 11:50 15:09 Wound Center Nurse 2 3-left foot -Time 14:49 11:50 15:10 -Correct Patient Yes Yes Yes -Correct Side, Site, Position Yes Yes Yes -Correct Procedure Yes Yes Yes -Procedure Performed Yes Yes Yes -Type of Procedure Debridement Debridement Debridement -Clinical Debridement Subcutaneous Subcutaneous Muscle / Fascia -Tissue Removed Subcutaneous Subcutaneous Muscle -Post Debridement (cm) - Length 0.8 0.7 0.9 -Post Debridement (cm) - Width 1.6 1.5 1.8 -Post Debridement (cm) - Depth 0.1 0.2 0.2 -Total Square (Post) (cm) 1.28 1.05 1.62 -Area of Debridement (cm) - Length 0.8 0.7 0.9 -Area of Debridement (cm) - Width 1.3 4.5 1.8 -Total Square (Area) (cm) 1.04 3.15 1.62 -Tunneling No No No -Undermining/Tunneling No No No -Circular Undermining No No No -Wound/Ulcer Outcome Not Healed Not Healed Not Healed -Ulcer Cleansing Rinsed/ Not Cleansed Rinsed/ Irrigated with Irrigated with Saline Saline -Foul Odor after Cleansing No No No -Bioengineered Tissue No No No -Bleeding Controlled with Pressure Pressure Pressure -Treatment Response Procedure Procedure Procedure Tolerated Well Tolerated Well Tolerated Well -Offloading No No Yes -Type of Offloading Surgical Shoe -Debridement - Subq, 1st 20sq cm Yes No -Debridement - Muscle / Fascia, 1st No 20sq cm #1- L MEDIAL ANKLE -Time 11:54 15:09 -Correct Patient Yes Yes Yes -Correct Side, Site, Position No Yes Yes -Correct Procedure No Yes Yes -Procedure Performed No Yes Yes -Type of Procedure Debridement Debridement -Clinical Debridement Subcutaneous Muscle / Fascia -Tissue Removed Subcutaneous Muscle -Post Debridement (cm) - Length 0.8 1 -Post Debridement (cm) - Width 1.0 1 -Post Debridement (cm) - Depth 0.5 0.3 -Total Square (Post) (cm) 0.80 1 -Area of Debridement (cm) - Length 0.8 1 -Area of Debridement (cm) - Width 1.0 1 -Total Square (Area) (cm) 0.80 1 -Tunneling No No -Undermining/Tunneling No No -Circular Undermining Yes No -Wound/Ulcer Outcome Not Healed Not Healed Not Healed -Ulcer Cleansing Not Cleansed Rinsed/ Irrigated with Saline -Foul Odor after Cleansing No No -Bioengineered Tissue No No -Bleeding Controlled with Pressure Pressure -Treatment Response Procedure Procedure Tolerated Well Tolerated Well -Offloading Yes -Type of Offloading Surgical Shoe -Debridement - Subq, 1st 20sq cm Yes -Debridement - Muscle / Fascia, 1st Yes 20sq cm Pain Scale: 0-10 Numeric Is Patient Pain Free? Yes Yes Yes 09/21/24 15:11 Wound Center Nurse 2 3-left foot -Time 15:14 -Correct Patient Yes -Correct Side, Site, Position Yes -Correct Procedure Yes -Procedure Performed Yes -Type of Procedure Debridement -Clinical Debridement Muscle / Fascia -Tissue Removed Tendon -Post Debridement (cm) - Length 0.8 -Post Debridement (cm) - Width 1.1 -Post Debridement (cm) - Depth 0.2 -Total Square (Post) (cm) 0.88 -Area of Debridement (cm) - Length 0.8 -Area of Debridement (cm) - Width 1.1 -Total Square (Area) (cm) 0.88 -Tunneling No -Undermining/Tunneling No -Circular Undermining No -Wound/Ulcer Outcome Not Healed -Ulcer Cleansing Rinsed/ Irrigated with Saline -Foul Odor after Cleansing No -Bioengineered Tissue No -Bleeding Controlled with Pressure -Treatment Response Procedure Tolerated Well -Offloading No -Type of Offloading -Debridement - Subq, 1st 20sq cm No -Debridement - Muscle / Fascia, 1st No 20sq cm #1- L MEDIAL ANKLE -Time 15:13 -Correct Patient Yes -Correct Side, Site, Position Yes -Correct Procedure Yes -Procedure Performed Yes -Type of Procedure Debridement -Clinical Debridement Muscle / Fascia -Tissue Removed Muscle -Post Debridement (cm) - Length 0.9 -Post Debridement (cm) - Width 1.0 -Post Debridement (cm) - Depth 0.3 -Total Square (Post) (cm) 0.90 -Area of Debridement (cm) - Length 0.9 -Area of Debridement (cm) - Width 1.0 -Total Square (Area) (cm) 0.90 -Tunneling No -Undermining/Tunneling No -Circular Undermining No -Wound/Ulcer Outcome Not Healed -Ulcer Cleansing Rinsed/ Irrigated with Saline -Foul Odor after Cleansing No -Bioengineered Tissue No -Bleeding Controlled with Pressure -Treatment Response Procedure Tolerated Well -Offloading No -Type of Offloading -Debridement - Subq, 1st 20sq cm -Debridement - Muscle / Fascia, 1st Yes 20sq cm Pain Scale: 0-10 Numeric Is Patient Pain Free? Yes WC - Nurse 3 - General Ulcer D/C NN Start: 08/31/24 14:38 Freq: Status: Active Protocol: Activity Type Activity Date Activity User E-sign Co-sign Detail Recorded Client Recorded Date Recorded By Document 08/31/24 15:05 BMF [id number] 08/31/24 15:07 BM Document 09/07/24 12:14 [id number] 09/07/24 12:16 Document 09/21/24 15:37 DL [id number] 09/21/24 15:38 DL 08/31/24 09/07/24 09/21/24 15:05 12:14 15:37 Wound Care Center Nurse 3 3-left foot -Ulcer Cleansing Rinsed/ Not Cleansed Rinsed/ Irrigated with Irrigated with Saline Saline -Foul Odor after Cleansing No No No -Primary Dressing Applied AMD Dressing Promogran AMD Dressing 4x4 Radha Matter 4x4 -Other Dressing drsg per dl facilities project manager -Primary Dressing Covered/Secured with Dry Gauze & Dry Gauze & Dry Gauze,Dry Roll Gauze, Roll Gauze, Gauze & Roll Secured with Secured with Gauze Tape Tape -Other Covering atb oint -AMD Dressing 4x4 1 1 -Promogran Radha Matter 1 #1- L MEDIAL ANKLE -Ulcer Cleansing Not Cleansed Rinsed/ Irrigated with Saline -Foul Odor after Cleansing No No -Other Dressing epicord AMD Foam -Primary Dressing Covered/Secured with Dry Gauze & Dry Gauze & Roll Gauze, Roll Gauze, Secured with Secured with Tape Tape -Other Covering drsg per dl facilities project manager used remainder of radha LLE -Lotion applied to leg before No compression wrap -Tubular Bandage Single Layer Single Layer Single Layer -Size of Tubigrip Used Size E Size D Size E -Size D ($) 1 -Size E ($) 1 1 -Other applied per dl facilities project manager Treatment Response Procedure Procedure Tolerated Well Tolerated Well Pain Scale: 0-10 Numeric Is Patient Pain Free? 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 All findings were discussed with the patient. All questions were answered to the patient's satisfaction. Excisional debridement down to and including subcutaneous tissue, fascia and muscle to the left medial ankle full-thickness wound with a number 3 mm dermal curette and without incident. Predebridement measurement was 0.8 x 0.9 x 0.1 cm. Postdebridement measurement is 0.9 x 1.0 x 0.3 cm. Excisional debridement down to including subcutaneous tissue to left lower extremity first metatarsal phalangeal joint dorsally with a #3 minimally dermal curette done without incident. Predebridement measurement was 0.7 x 1.0 x 0.1 cm. Postdebridement measurement is 0.8 x 1.1 x 0.2 cm. The 2 wounds were wiped clean and patted dry. AMD pad followed by dry sterile dressing and light compression wrap were donned. Will begin authorization through arterial and venous studies to the patient's left lower extremity as we show evidence of delayed healing. After review of the patient's culture there is more microbial growth sensitive to doxycycline which he will be placed on 100 mg twice daily for 2 weeks. Patient will continue daily supplementation. The patient will follow-up with with Dr. Blunt in 1 week [address] then with Dr. Mazariegos in 1 week. (2) Non-pressure chronic ulcer of other part of left foot with fat layer exposed: CODE(S): L97.522 - Non-pressure chronic ulcer of other part of left foot with fat layer exposed (3) Other specified peripheral vascular diseases: CODE(S): I73.89 - Other specified peripheral vascular diseases
--- NOTE | 2024-09-22 08:18 | WC ---
PHOTO-LEFT ANKLE 09/21/24
--- NOTE | 2024-09-22 08:21 | WC ---
PHOTO-LEFT HALLUX 09/21/24
--- NOTE | 2024-09-26 13:26 | ART_ITS ---
Reason For Study Reason For Study: Wound Procedure A bilateral lower extremity continuous wave Doppler with analog waveform analysis,segmental pressures,and ankle brachial indexes without exercise. Left Segmental Pressures Left brachial= 126mmHg. Left posterior tibial artery = >254mmHg. Left dorsalis pedis artery = >254mmHg. The left dorsalis pedis waveforms are monophasic. The left posterior tibial artery waveforms are monophasic. Right Segmental Pressures Right brachial= 114mmHg. Right posterior tibial artery = >254mmHg. Right dorsalis pedis artery = 165mmHg. Right digit = 58 mmHg. The right dorsalis pedis waveforms are monophasic. The right posterior tibial artery waveforms are monophasic. Indices The right ankle brachial index by the dorsalis pedis is 1.31. The right ankle brachial index by the posterior tibial artery is NC. The right digital-brachial index is 0.44. The left ankle brachial index by the dorsalis pedis is NC. The left ankle brachial index by the posterior tibial artery is NC. VL/Lower Ext Art Exam w/o Exercis Interpretation Summary Monophasic Doppler waveforms are noted at ankle level bilaterally. Pulse-volume recordings appear diminished at all levels on the left. The resting right ankle-brachial index is normal. The resti ng left ankle-brachial index could not be determined due to the non-compressibility of the vasculature at ankle level on the left. The right digital-brachial index is moderately diminished. The left digital-brachial index was not determi heladio. Arterial flow appears normal at ankle level on the right, based upon the normal ankle-brachial index. However, the TRAE may be artifactually elevated due to arterial calcification. Therefore, clinica l correlation is advised. 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 The ankle-brachial index and digital- brachial index were not determined on the left. However, monophasic Doppler wav eforms and diminished pulse-volume recordings suggest [id number] arterial occlusive disease in the left lo wer extremity. Ordering Physician: Rasta Mazariegos Referring Physician: MD Maria G Dillan Performed By: Raine Horne, RVT
--- NOTE | 2024-09-26 13:26 | VDLE_ITS ---
Reason For Study Reason For Study: Wound RIGHT LEFT CFV is compressible, spontaneous, phasic, competent CFV is compressible, spontaneous, phasic, competent, and demonstrates normal augmentation. and demonstrates normal augmentation. FV is compressible, spontaneous, phasic, competent FV is compressible, spontaneous, phasic, competent and demonstrates normal augmentation. and demonstrates normal augmentation. POP V is compressible, spontaneous, phasic, competent POP V is compressible, spontaneous, phasic, competent and demonstrates normal augmentation. and demonstrates normal augmentation. T/P Trunk is compressible. T/P Trunk is compressible. PTV is compressible. PTV is compressible. RT PerV is compressible. LT PerV is compressible. SFJ is competent and measures 0.50 cm. SFJ is competent and measures 0.50 cm. GSV proximal thigh measures 0.21 x 0.23 cm. GSV proximal thigh measures 0.46 x 0.45 cm. GSV above knee is competent. GSV above knee is INCOMPETENT for greater than 0.5 GSV at knee measures 0.21 x 0.23 cm. seconds. GSV below knee is INCOMPETENT for greater than 0.5 GSV at knee measures 0.25 x 0.26 cm. seconds. GSV below knee is competent. SSV mid calf is INCOMPETENT for greater than 0.5 SSV mid calf is competent and measures 0.37 x 0.33 seconds and measures 0.29 x 0.29 cm. cm. Procedure This is a venous duplex using B-mode, color flow and spectral Doppler. Exam performed in department. Patient was scanned in reverse Trendelenburg position during reflux assessment. A preliminary report was called and/or faxed to . VL/Venous Duplex US - [place] Extrem Interpretation Summary Deep veins of the lower extremities are bilaterally patent and compressible seg mentally. There is no evidence of deep vein thrombosis on either side. Valvular competence appears intact within the p roximal deep venous systems bilaterally. The great saphenous veins appear bilaterally patent and compressible segmentall y. Sapheno-femoral junctions are bilaterally competent . The right great saphenous vein appears competent above the knee. The right great saphenous vein appears incompetent below the knee. The left great saphenous vein appears incom petent above the knee. The left great saphenous vein appears competent below the knee. The right small saphenous vein is patent and incompetent. The left small saphenous vein is patent and competent. Ordering Physician: Rasta Mazariegos Referring Physician: MD Maria G Dillan Performed By: Raine Horne RVT
[2024-09-28 14:33] VITALS: BP 121/56; PULSE 69; RESP 16; TEMP 35.9
--- NOTE | 2024-09-29 14:41 | PCM.WC.PN ---
History of Present Illness Date of Service: 09/28/24 Chief Complaint: Left medial ankle and left foot ulcers History of Wound: This is an 84-year-old male with a left medial ankle ulcer that had been seeing Brow[employer] Processor, Dr. Drew, at the [facility]. The patient has a significant history for COPD, and is on home O2. He also has a history of Prostate CA, Squamous carcinoma of left lung, HTN, anxiety and depression, AAA without rupture, CAD, coronary artery stent placement (multiple), CABG x 3, former smoker, PAD, PBH, and pulmonary embolism-on anticoagulants, and hyperlipidemia. He has had arterial studies in the past and had some vascular procedures (by Dr. Freeman) to his left leg. He denies a history of diabetes. His providers are all with [facility]. He has had this left medial ankle ulcer for more than 3 months. He had been placing Santyl covered with [place] [facility]. There had not been much improvement to this area, and he was referred to see us by [facility], and that Dr. Drew also suggested he get a second opinion. The patient is seen at this time as a courtesy to his regular Wound Center provider, Dr. Rasta Mazariegos, who is unavailable this week. Progress of Wound: Chronic slow healing ulceration appreciated to the medial ankle and dorsal first metatarsal phalangeal joint left foot. Subjective Subjective Patient is 84-year-old male presenting with care center follow-up evaluation of full-thickness wound to the dorsal aspect of the big toe joint and medial ankle. Patient is doing dressing changes as discussed. He still admits little to no improvement to the full-thickness wound. His redness and pain is improving with oral antibiotics. He did get his vascular studies completed. He denies trauma. He denies constitutional symptoms. No other pedal complaints at this time. Objective Data Objective Data Vital Signs: Vital Signs Temp Pulse Resp BP O2 Del Method O2 Flow Rate 96.6 F L 69 16 121/56 H Nasal Cannula 4 09/28/24 14:33 09/28/24 14:33 09/28/24 14:33 09/28/24 14:33 09/28/24 14:33 09/28/24 14:33 Oxygen Flow Rate (L/min) 4 Oxygen Delivery Method Nasal Cannula Lab / Micro Data Micro: Microbiology 09/15/24 14:41 Wound - Toe Gram Stain - Final 09/15/24 14:41 Wound - Toe Wound Culture - Final Staphylococcus aureus 09/15/24 14:41 Wound - Toe Anaerobic Culture - Final No anaerobic bacteria isolated. Physical Exam Narrative Vascular: DP and PT pulses are faintly palpable. CFT is brisk. Blanchable erythema to the periwound of the dorsal first metatarsal phalangeal joint left foot. Neurological: Light touch intact. Patient does despond painful stimuli. Dermatological: Full-thickness wound to the left medial ankle measuring 1.0 x 0.9 x 0.3 cm. Full-thickness wound to the dorsal aspect left foot first metatarsal phalangeal joint measuring 0.9 x 1.7 x 0.2 cm periwound erythema which is blanchable. Excisional debridement down to and including subcutaneous tissue, fascia and muscle to the left medial ankle full-thickness wound with a number 3 mm dermal curette and without incident. Predebridement measurement was 0.9 x 0.8 x 0.2 cm. Postdebridement measurement is 1.0 x 0.9 x 0.3 cm. Excisional debridement down to including subcutaneous tissue to left lower extremity first metatarsal phalangeal joint dorsally with a #3 minimally dermal curette done without incident. Predebridement measurement was 0.8 x 1.5 by 0.2 cm. Postdebridement measurement is 0.9 x 1.7 x 0.2 cm. Musculoskeletal: Pain on palpation to the left 1st MPJ full thickness wound. No pain with calf pressure. Debridement Note Debridement Note Debridement Free Text: Excisional debridement down to and including subcutaneous tissue, fascia and muscle to the left medial ankle full-thickness wound with a number 3 mm dermal curette and without incident. Predebridement measurement was 0.9 x 0.8 x 0.2 cm. Postdebridement measurement is 1.0 x 0.9 x 0.3 cm. Excisional debridement down to including subcutaneous tissue to left lower extremity first metatarsal phalangeal joint dorsally with a #3 minimally dermal curette done without incident. Predebridement measurement was 0.8 x 1.5 by 0.2 cm. Postdebridement measurement is 0.9 x 1.7 x 0.2 cm. Post-Debridement Measurements and Additional Note: Post-Debridement Measurements/Treatment WC - Nurse 1 - General Ulcer Assessment Start: 08/31/24 14:38 Freq: Status: Active Protocol: MILENA Activity Type Activity Date Activity User E-sign Co-sign Detail Recorded Client Recorded Date Recorded By Document 08/31/24 14:39 DL [id number] 08/31/24 14:44 DL Document 09/07/24 11:27 KW [id number] 09/07/24 11:35 KW Document 09/14/24 14:49 KW [id number] 09/14/24 14:58 KW Edit Result 09/14/24 14:49 KW (1) [id number] 09/14/24 15:01 KW Document 09/21/24 14:56 ML [id number] 09/21/24 14:59 ML Document 09/28/24 14:33 KW [id number] 09/28/24 14:40 KW (1) Temperature (97.8 F-99.1 F) => 97.2 F L Pulse Rate (60-100) => 73 Blood Pressure (90/60-120/80) => 97/58 L Blood Pressure Mean (mm Hg) => 71 08/31/24 09/07/24 09/14/24 14:39 11:27 14:49 WC - Today's Visit Information Type of service Follow-up Visit Follow-up Visit Follow-up Visit (Physician/RESPIRATORY THERAPY TECHNICIAN (Physician/RESPIRATORY THERAPY TECHNICIAN (Physician/RESPIRATORY THERAPY TECHNICIAN ) ) ) Arrival Mode Wheelchair Wheelchair Wheelchair Transfer Assistance Manual Transfer Assist (Other) x1 Accompanied by Patient Identification Verified (Name & Yes Yes Yes ) Patient Requires Transmission-Based No Precautions Safety Precautions Fall Prevention Height and Weight Weight Measurement Method Vital Signs Temperature (97.8 F-99.1 F) 97 F L 96.7 F L 97.2 F L Temperature Source Temporal Temporal Temporal Pulse Rate (60-100) 79 78 73 Pulse Location Monitor Monitor Monitor Respiratory Rate (12-18) 22 H 18 18 Respiratory rate source Observation Observation Observation Oxygen Delivery Method Nasal Cannula Nasal Cannula O2 L/MIN (L/min) Blood Pressure (90/60-120/80) 129/78 H 121/45 H 97/58 L Blood Pressure Mean (mm Hg) 95 70 71 Source Monitor Monitor Monitor Position Semi-Fowlers Sitting Blood Pressure Location Left Arm Left Arm History Since Last Visit- (Skip if this is Patient's initial visit) Have you changed medications since your No No No last visit? Any new allergies or adverse reactions No No No Had a fall/change in ADL's that may No No No increase risk of falls Signs or symptoms of abuse and/or No No No neglect since last visit Have you been in the hospital since your No No No last visit? Has dressing in place as prescribed Yes Yes Yes Has compression in place as prescribed Yes Yes Yes Has offloadiing in place as prescribed Yes Yes N/A Experienced any changes in pain level or No No No management Left Footwear Surgical Shoe Regular Shoe with pressure relief insole Right Footwear Regular Shoe Regular Shoe Pain Scale: 0-10 Numeric Is Patient Pain Free? Yes Yes Yes 09/21/24 09/28/24 14:56 14:33 WC - Today's Visit Information Type of service Follow-up Visit Follow-up Visit (Physician/RESPIRATORY THERAPY TECHNICIAN (Physician/RESPIRATORY THERAPY TECHNICIAN ) ) Arrival Mode Wheelchair Wheelchair Transfer Assistance None Other Transfer Assist (Other) walker Accompanied by Patient Identification Verified (Name & Yes Yes ) Patient Requires Transmission-Based No Precautions Safety Precautions Height and Weight Weight Measurement Method Estimated by Patient Vital Signs Temperature (97.8 F-99.1 F) 97.3 F L 96.6 F L Temperature Source Temporal Temporal Pulse Rate (60-100) 66 69 Pulse Location Monitor Monitor Respiratory Rate (12-18) 20 H 16 Respiratory rate source Observation Observation Oxygen Delivery Method Nasal Cannula O2 L/MIN (L/min) 4 Blood Pressure (90/60-120/80) 113/64 121/56 H Blood Pressure Mean (mm Hg) 80 77 Source Monitor Monitor Position Sitting Semi-Fowlers Blood Pressure Location Left Arm Left Arm History Since Last Visit- (Skip if this is Patient's initial visit) Have you changed medications since your No last visit? Any new allergies or adverse reactions No Had a fall/change in ADL's that may No increase risk of falls Signs or symptoms of abuse and/or No neglect since last visit Have you been in the hospital since your No last visit? Has dressing in place as prescribed Yes Has compression in place as prescribed N/A Has offloadiing in place as prescribed N/A Experienced any changes in pain level or No management Left Footwear Regular Shoe Right Footwear Regular Shoe Pain Scale: 0-10 Numeric Is Patient Pain Free? Yes Yes WC - Nurse 1 - General Ulcer Measurement Start: 08/31/24 14:38 Freq: Status: Active Protocol: Activity Type Activity Date Activity User E-sign Co-sign Detail Recorded Client Recorded Date Recorded By Document 08/31/24 14:39 DL [id number] 08/31/24 14:44 DL Document 09/07/24 11:27 KW [id number] 09/07/24 11:35 KW Document 09/14/24 14:49 KW [id number] 09/14/24 14:58 KW Document 09/21/24 14:56 ML [id number] 09/21/24 14:59 ML Document 09/28/24 14:33 KW [id number] 09/28/24 14:40 KW 08/31/24 09/07/24 09/14/24 14:39 11:27 14:49 Wound Center Nurse 1 3-left foot -Combined with other wound -Current Size (cm) - Length 0.8 1.9 0.6 -Current Size (cm) - Width 1.6 0.8 1.8 -Current Size (cm) - Depth 0.2 0.3 0.2 -Total Square Cm 1.28 1.52 1.08 -Date of Last Picture (Recall this 09/14/24 field) -Tunneling -Undermining/Tunneling -Circular Undermining -Exudate Amt Medium Medium Large -Exudate Type Serosanguineous Serosanguineous Serosanguineous -Wound Margin Distinct, Distinct, Thickened & Outline Outline Rolled Under Attached Attached -Granulation Amt None Present (0 Small (1-33%) Medium (34-66%) %) -Granulation Quality [place] Red -Slough/Fibrin -Necrosis Amt Large (67-100%) Large (67-100%) Medium (34-66%) -Necrotic Tissue Type Adherent Slough Adherent Slough Adherent Slough -Structure Exposed N/A -Texture (Bell-wound Skin Appearance) Scarring Assessed, Assessed, Localized Edema Localized Edema -Moisture (Bell-wound Skin Appearance) Dry/Scaly Assessed Assessed -Color (Bell-wound Skin Appearance) Erythema Assessed, Assessed, Erythema Erythema -Temperature (Bell-wound Skin No Abnormality No Abnormality No Abnormality Appearance) (Pt Warm) (Pt Warm) (Pt Warm) -Tenderness on Palpation (Bell-wound No No Skin Appearance) -Ulcer Cleansing Rinsed/ Soap and Water Soap and Water Irrigated with Saline -Foul Odor after Cleansing No No -Anesthetic Used 5% Lidocaine 5% Lidocaine 5% Lidocaine Gel Gel Gel #1- L MEDIAL ANKLE -Combined with other wound -Current Size (cm) - Length 1 0.9 1 -Current Size (cm) - Width 1 0.9 1 -Current Size (cm) - Depth 0.1 0.1 0.3 -Total Square Cm 1 0.81 1 -Date of Last Picture (Recall this 09/07/24 09/14/24 field) -Tunneling -Circular Undermining Yes -Exudate Amt Small Small Large -Exudate Type Serosanguineous Serosanguineous -Wound Margin Distinct, Distinct, Thickened & Outline Outline Rolled Under Attached Attached -Granulation Amt None Present (0 Small (1-33%) %) -Granulation Quality Red -Slough/Fibrin -Necrosis Amt Large (67-100%) Large (67-100%) -Necrotic Tissue Type Eschar Adherent Slough -Structure Exposed N/A -Texture (Bell-wound Skin Appearance) Scarring Assessed Assessed, Localized Edema -Moisture (Bell-wound Skin Appearance) Dry/Scaly Assessed Assessed -Color (Bell-wound Skin Appearance) No Abnormality Assessed Assessed, Erythema -Temperature (Bell-wound Skin No Abnormality No Abnormality No Abnormality Appearance) (Pt Warm) (Pt Warm) (Pt Warm) -Tenderness on Palpation (Bell-wound No No No Skin Appearance) -Ulcer Cleansing Soap and Water Soap and Water -Foul Odor after Cleansing No No No -Anesthetic Used 5% Lidocaine 5% Lidocaine Gel Gel -Wound Comment(s) Epicord intact. left inplace. Left Calf (cm) 27.5 27 Left Ankle (cm) 20.6 21.6 09/21/24 09/28/24 14:56 14:33 Wound Center Nurse 1 3-left foot -Combined with other wound No -Current Size (cm) - Length 1.5 0.8 -Current Size (cm) - Width 1.5 1.6 -Current Size (cm) - Depth 0.2 0.1 -Total Square Cm 2.25 1.28 -Date of Last Picture (Recall this field) -Tunneling No -Undermining/Tunneling No -Circular Undermining No -Exudate Amt Medium Medium -Exudate Type Serosanguineous Serosanguineous -Wound Margin Thickened & Rolled Under -Granulation Amt Medium (34-66%) Medium (34-66%) -Granulation Quality Red -Slough/Fibrin Yes Yes -Necrosis Amt Medium (34-66%) Medium (34-66%) -Necrotic Tissue Type Adherent Slough Adherent Slough -Structure Exposed -Texture (Bell-wound Skin Appearance) Assessed Assessed, Scarring -Moisture (Bell-wound Skin Appearance) Assessed Assessed -Color (Bell-wound Skin Appearance) Assessed Assessed, Erythema -Temperature (Bell-wound Skin No Abnormality No Abnormality Appearance) (Pt Warm) (Pt Warm) -Tenderness on Palpation (Bell-wound Yes No Skin Appearance) -Ulcer Cleansing Rinsed/ Rinsed/ Irrigated with Irrigated with Saline Saline -Foul Odor after Cleansing No No -Anesthetic Used 5% Lidocaine 5% Lidocaine Gel Gel #1- L MEDIAL ANKLE -Combined with other wound No -Current Size (cm) - Length 1 1 -Current Size (cm) - Width 2 1 -Current Size (cm) - Depth 0.2 0.3 -Total Square Cm 2 1 -Date of Last Picture (Recall this field) -Tunneling No -Circular Undermining Yes -Exudate Amt Medium Medium -Exudate Type Serosanguineous Serosanguineous -Wound Margin Distinct, Thickened & Outline Rolled Under Attached -Granulation Amt Medium (34-66%) Medium (34-66%) -Granulation Quality Red -Slough/Fibrin Yes Yes -Necrosis Amt Small (1-33%) Medium (34-66%) -Necrotic Tissue Type Adherent Slough Adherent Slough -Structure Exposed -Texture (Bell-wound Skin Appearance) Assessed Assessed, Scarring -Moisture (Bell-wound Skin Appearance) Assessed Assessed -Color (Bell-wound Skin Appearance) Assessed Assessed, Erythema -Temperature (Bell-wound Skin No Abnormality No Abnormality Appearance) (Pt Warm) (Pt Warm) -Tenderness on Palpation (Bell-wound Yes No Skin Appearance) -Ulcer Cleansing Rinsed/ Rinsed/ Irrigated with Irrigated with Saline Saline -Foul Odor after Cleansing No No -Anesthetic Used 5% Lidocaine 5% Lidocaine Gel Gel -Wound Comment(s) Left Calf (cm) 27 Left Ankle (cm) 21.7 WC - Nurse 2 - General Ulcer CM Notes Start: 08/31/24 14:38 Freq: Status: Active Protocol: Activity Type Activity Date Activity User E-sign Co-sign Detail Recorded Client Recorded Date Recorded By Document 08/31/24 14:49 [id number] 08/31/24 14:52 Document 09/07/24 11:50 [id number] 09/07/24 12:03 Document 09/14/24 15:09 [id number] 09/14/24 15:11 Document 09/21/24 15:11 [id number] 09/21/24 15:16 Document 09/28/24 15:04 [id number] 09/28/24 15:13 08/31/24 09/07/24 09/14/24 14:49 11:50 15:09 Wound Center Nurse 2 3-left foot -Time 14:49 11:50 15:10 -Correct Patient Yes Yes Yes -Correct Side, Site, Position Yes Yes Yes -Correct Procedure Yes Yes Yes -Procedure Performed Yes Yes Yes -Type of Procedure Debridement Debridement Debridement -Clinical Debridement Subcutaneous Subcutaneous Muscle / Fascia -Tissue Removed Subcutaneous Subcutaneous Muscle -Post Debridement (cm) - Length 0.8 0.7 0.9 -Post Debridement (cm) - Width 1.6 1.5 1.8 -Post Debridement (cm) - Depth 0.1 0.2 0.2 -Total Square (Post) (cm) 1.28 1.05 1.62 -Area of Debridement (cm) - Length 0.8 0.7 0.9 -Area of Debridement (cm) - Width 1.3 4.5 1.8 -Total Square (Area) (cm) 1.04 3.15 1.62 -Tunneling No No No -Undermining/Tunneling No No No -Circular Undermining No No No -Wound/Ulcer Outcome Not Healed Not Healed Not Healed -Ulcer Cleansing Rinsed/ Not Cleansed Rinsed/ Irrigated with Irrigated with Saline Saline -Foul Odor after Cleansing No No No -Bioengineered Tissue No No No -Bleeding Controlled with Pressure Pressure Pressure -Treatment Response Procedure Procedure Procedure Tolerated Well Tolerated Well Tolerated Well -Offloading No No Yes -Type of Offloading Surgical Shoe -Debridement - Subq, 1st 20sq cm Yes No -Debridement - Muscle / Fascia, 1st No 20sq cm #1- L MEDIAL ANKLE -Time 11:54 15:09 -Correct Patient Yes Yes Yes -Correct Side, Site, Position No Yes Yes -Correct Procedure No Yes Yes -Procedure Performed No Yes Yes -Type of Procedure Debridement Debridement -Clinical Debridement Subcutaneous Muscle / Fascia -Tissue Removed Subcutaneous Muscle -Post Debridement (cm) - Length 0.8 1 -Post Debridement (cm) - Width 1.0 1 -Post Debridement (cm) - Depth 0.5 0.3 -Total Square (Post) (cm) 0.80 1 -Area of Debridement (cm) - Length 0.8 1 -Area of Debridement (cm) - Width 1.0 1 -Total Square (Area) (cm) 0.80 1 -Tunneling No No -Undermining/Tunneling No No -Circular Undermining Yes No -Wound/Ulcer Outcome Not Healed Not Healed Not Healed -Ulcer Cleansing Not Cleansed Rinsed/ Irrigated with Saline -Foul Odor after Cleansing No No -Bioengineered Tissue No No -Bleeding Controlled with Pressure Pressure -Treatment Response Procedure Procedure Tolerated Well Tolerated Well -Offloading Yes -Type of Offloading Surgical Shoe -Debridement - Subq, 1st 20sq cm Yes -Debridement - Muscle / Fascia, 1st Yes 20sq cm Pain Scale: 0-10 Numeric Is Patient Pain Free? Yes Yes Yes 09/21/24 09/28/24 15:11 15:04 Wound Center Nurse 2 3-left foot -Time 15:14 15:09 -Correct Patient Yes Yes -Correct Side, Site, Position Yes Yes -Correct Procedure Yes Yes -Procedure Performed Yes Yes -Type of Procedure Debridement Debridement -Clinical Debridement Muscle / Fascia Muscle / Fascia -Tissue Removed Tendon Muscle -Post Debridement (cm) - Length 0.8 0.9 -Post Debridement (cm) - Width 1.1 1.7 -Post Debridement (cm) - Depth 0.2 0.2 -Total Square (Post) (cm) 0.88 1.53 -Area of Debridement (cm) - Length 0.8 0.9 -Area of Debridement (cm) - Width 1.1 1.7 -Total Square (Area) (cm) 0.88 1.53 -Tunneling No No -Undermining/Tunneling No No -Circular Undermining No No -Wound/Ulcer Outcome Not Healed Not Healed -Ulcer Cleansing Rinsed/ Rinsed/ Irrigated with Irrigated with Saline Saline -Foul Odor after Cleansing No No -Bioengineered Tissue No No -Bleeding Controlled with Pressure Pressure -Treatment Response Procedure Procedure Tolerated Well Tolerated Well -Offloading No No -Type of Offloading -Debridement - Subq, 1st 20sq cm No -Debridement - Muscle / Fascia, 1st No Yes 20sq cm #1- L MEDIAL ANKLE -Time 15:13 15:08 -Correct Patient Yes Yes -Correct Side, Site, Position Yes Yes -Correct Procedure Yes Yes -Procedure Performed Yes Yes -Type of Procedure Debridement Debridement -Clinical Debridement Muscle / Fascia Muscle / Fascia -Tissue Removed Muscle Muscle -Post Debridement (cm) - Length 0.9 1.0 -Post Debridement (cm) - Width 1.0 0.9 -Post Debridement (cm) - Depth 0.3 0.3 -Total Square (Post) (cm) 0.90 0.90 -Area of Debridement (cm) - Length 0.9 1.0 -Area of Debridement (cm) - Width 1.0 0.9 -Total Square (Area) (cm) 0.90 0.90 -Tunneling No No -Undermining/Tunneling No No -Circular Undermining No No -Wound/Ulcer Outcome Not Healed Not Healed -Ulcer Cleansing Rinsed/ Rinsed/ Irrigated with Irrigated with Saline Saline -Foul Odor after Cleansing No No -Bioengineered Tissue No No -Bleeding Controlled with Pressure Pressure -Treatment Response Procedure Procedure Tolerated Well Tolerated Well -Offloading No No -Type of Offloading -Debridement - Subq, 1st 20sq cm -Debridement - Muscle / Fascia, 1st Yes No 20sq cm Pain Scale: 0-10 Numeric Is Patient Pain Free? Yes Yes WC - Nurse 3 - General Ulcer D/C NN Start: 08/31/24 14:38 Freq: Status: Active Protocol: Activity Type Activity Date Activity User E-sign Co-sign Detail Recorded Client Recorded Date Recorded By Document 08/31/24 15:05 BMF [id number] 08/31/24 15:07 BM Document 09/07/24 12:14 GM [id number] 09/07/24 12:16 GM Document 09/21/24 15:37 DL [id number] 09/21/24 15:38 DL Document 09/28/24 15:18 KW [id number] 09/28/24 15:18 KW 08/31/24 09/07/24 09/21/24 15:05 12:14 15:37 Wound Care Center Nurse 3 3-left foot -Ulcer Cleansing Rinsed/ Not Cleansed Rinsed/ Irrigated with Irrigated with Saline Saline -Foul Odor after Cleansing No No No -Primary Dressing Applied AMD Dressing Promogran AMD Dressing 4x4 Tray Matter 4x4 -Other Dressing drsg per dl webmaster -Primary Dressing Covered/Secured with Dry Gauze & Dry Gauze & Dry Gauze,Dry Roll Gauze, Roll Gauze, Gauze & Roll Secured with Secured with Gauze Tape Tape -Other Covering atb oint -AMD Dressing 4x4 1 1 -Promogran Tray Matter 1 #1- L MEDIAL ANKLE -Ulcer Cleansing Not Cleansed Rinsed/ Irrigated with Saline -Foul Odor after Cleansing No No -Other Dressing epicord AMD Foam -Primary Dressing Covered/Secured with Dry Gauze & Dry Gauze & Roll Gauze, Roll Gauze, Secured with Secured with Tape Tape -Other Covering drsg per dl webmaster used remainder of tray LLE -Lotion applied to leg before No compression wrap -Tubular Bandage Single Layer Single Layer Single Layer -Size of Tubigrip Used Size E Size D Size E -Size D ($) 1 -Size E ($) 1 1 -Other applied per dl webmaster Treatment Response Procedure Procedure Tolerated Well Tolerated Well Pain Scale: 0-10 Numeric Is Patient Pain Free? Yes Yes Yes WC - Visit Discharge Discharge Condition Stable Stable Stable Ambulatory Status Wheelchair Walker Ambulatory Transportation Private Auto Ambulance Private Auto Accompanied by Medication Reconcilliation completed & provided to patient/care provider Clinical Summary of Care Provided 09/28/24 15:18 Wound Care Center Nurse 3 3-left foot -Ulcer Cleansing -Foul Odor after Cleansing -Primary Dressing Applied -Other Dressing betadine gauze -Primary Dressing Covered/Secured with Dry Gauze & Roll Gauze, Secured with Tape -Other Covering -AMD Dressing 4x4 -Promogran Tray Matter #1- L MEDIAL ANKLE -Ulcer Cleansing -Foul Odor after Cleansing -Other Dressing betadine gauze -Primary Dressing Covered/Secured with Dry Gauze & Roll Gauze, Secured with Tape -Other Covering LLE -Lotion applied to leg before compression wrap -Tubular Bandage Single Layer -Size of Tubigrip Used Size E -Size D ($) -Size E ($) 1 -Other Treatment Response Pain Scale: 0-10 Numeric Is Patient Pain Free? 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 All findings were discussed with the patient. All questions were answered to the patient's satisfaction. Excisional debridement down to and including subcutaneous tissue, fascia and muscle to the left medial ankle full-thickness wound with a number 3 mm dermal curette and without incident. Predebridement measurement was 0.9 x 0.8 x 0.2 cm. Postdebridement measurement is 1.0 x 0.9 x 0.3 cm. Excisional debridement down to including subcutaneous tissue to left lower extremity first metatarsal phalangeal joint dorsally with a #3 minimally dermal curette done without incident. Predebridement measurement was 0.8 x 1.5 by 0.2 cm. Postdebridement measurement is 0.9 x 1.7 x 0.2 cm. The areas were dressed with Betadine paint dry sterile dressing and light compression wrap. Patient will continue dressing changes daily as discussed. After review of the patient's arterial studies that shows evidence of severe arterial occlusive disease. I did recommend to the patient that he will be referred to Dr. Allen for evaluation and possible treatment. I did also discussed that there are other options in the [facility] such as [facility] for intervention if he is also interested. Patient did express that he saw Dr. Williamson for his heart and is aware that he does do lower extremity endovascular intervention. Gave the option to the patient but we will move forward with referral to Dr. Allen and allow Dr. Allen to send the patient to [facility] as needed. The patient will follow-up with with Dr. Blunt in 1 week [address] then with Dr. Mazariegos in 1 week. (2) Non-pressure chronic ulcer of other part of left foot with fat layer exposed: CODE(S): L97.522 - Non-pressure chronic ulcer of other part of left foot with fat layer exposed (3) Other specified peripheral vascular diseases: CODE(S): I73.89 - Other specified peripheral vascular diseases
== END 2024-09-29 23:59 | disposition home or self-care (01) ==
LOC: WC 14:45
PROVIDERS: PCP Family Medicine; Referring Provider Podiatrist Foot & Ankle Surgery; Visit Provider Podiatrist Foot & Ankle Surgery
DX: L97.325 Non-pressure chronic ulcer of left ankle with muscle involvement without evidence of necrosis (principal); L97.522 Non-pressure chronic ulcer of other part of left foot with fat layer exposed; J44.9 Chronic obstructive pulmonary disease, unspecified; I10 Essential (primary) hypertension; N40.0 Benign prostatic hyperplasia without lower urinary tract symptoms; Z95.5 Presence of coronary angioplasty implant and graft; E78.5 Hyperlipidemia, unspecified; Z79.51 Long term (current) use of inhaled steroids; Z79.82 Long term (current) use of aspirin; F32.A Depression, unspecified; Z82.49 Family history of ischemic heart disease and other diseases of the circulatory system; Z86.711 Personal history of pulmonary embolism; Z51.5 Encounter for palliative care; F41.9 Anxiety disorder, unspecified; Z87.891 Personal history of nicotine dependence; R53.81 Other malaise; Z85.118 Personal history of other malignant neoplasm of bronchus and lung; R06.00 Dyspnea, unspecified; I25.118 Atherosclerotic heart disease of native coronary artery with other forms of angina pectoris; Z99.81 Dependence on supplemental oxygen; Z95.1 Presence of aortocoronary bypass graft; Z85.46 Personal history of malignant neoplasm of prostate; I73.89 Other specified peripheral vascular diseases
CPT/HCPCS: 11042; 11043; 87070; 87075; 87077; 87186; 87205; 93923; 93970

== ENCOUNTER 2024-10-04 21:27 | Emergency (ER) | payer MEDICARE, BC, SELFPAY ==
[2024-10-04 21:28] VITALS: BP 127/71; PULSE 85; RESP 22; TEMP 36.7; O2SAT 100; BMI 22.4
--- NOTE | 2024-10-04 21:37 | CT_ITS ---
PROCEDURE: ABDOMEN/PELVIS W IV CONT ONLY 10/04/2024 REASON FOR EXAM: CONSTIPATION, LEFT LOWER QUAD ABDOMINAL PAIN TECHNIQUE: ABDOMEN/PELVIS W IV CONT ONLY Coronal and Sagittal reconstruction series were provided. CONTRAST: Isovue 370 VOLUME: 100 mL One or more dose reduction techniques were used (e.g., Automated exposure control, adjustment of the mA and/or kV according to patient size, use of iterative reconstruction technique. RADIATION DOSE SUMMARY: CTDlvol: 8 mGy DLP: 444 mGycm COMPARISON: Chest CT 05/22/2024, abdominopelvic CT 10/06/2023 FINDINGS: At the left lung base, there is a small loculated air and fluid pleural collection, with thick rind, similar to the prior chest CT, possibly a partially resolved empyema. There is bibasilar airspace disease favoring atelectasis. Normal heart size. Cholelithiasis. Small liver cyst. Unremarkable pancreas, spleen, adrenal glands, kidneys. Simple right renal cyst. No hydronephrosis. Normal bladder. Mildly enlarged prostate. No retroperitoneal or pelvic adenopathy. Extensive aortoiliac calcifications. 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 No free air. Nonobstructed bowel pattern. Normal appendix. Diverticulosis. Moderate stool. Large rectal vault stool with perirectal fat stranding and mild lower rectal wall enhancement. Lumbar spine scoliosis and degeneration. Old L4 mild compression deformity. CT/Abdomen/Pelvis W IV Cont ONLY IMPRESSION: Stercoral proctitis and possible rectal fecal impaction. Reading Location: [place] [id number]
--- NOTE | 2024-10-04 21:41 | EDS_ITS ---
HPI History of Present Illness Chief Complaint: Constipation Narrative Narrative: Chief complaint and HPI: Constipation. 84-year-old male with multiple comorbidities including COPD on chronic 5, 4 L nasal cannula, CAD, HLD, depression presents for evaluation of constipation. Patient states he has not had a bowel movement in 4 days. States he occasionally suffers from constipation but usually resolves on its own. He endorses some mild tenderness in the left lower quadrant. States that he has had difficulty urinating for the past several days. Denies fever, chills, shortness of breath, chest pain, nausea, vomiting, dysuria, hematuria. Does have a large inguinal hernia on the left. Review of systems: See HPI Medications: As listed on the chart Allergies: As listed on the chart PFSH: Per chart Vital signs: As listed on the chart. Reviewed. Physical exam: Gen: A&O x3, NAD Head: Normocephalic, atraumatic Eyes: No sclera icterus, conjunctiva clear ENT: Moist mucous membranes Neck: Trachea midline, No JVD CV: RRR, no murmurs, no peripheral edema Resp: Lungs CTA BL, no w/r/c, on baseline 4 L nasal cannula GI: Abd soft, non-distended, mildly tender to palpation left lower quadrant, no r/r/ Rectal: Normal external examination. No evidence of hemorrhoids or fissures. Normal tone and sensation. Large stool ball in the rectum-I was able to partially disimpact : No CVA tenderness. circumcised penis. No penile tenderness or discharge. Large inguinal hernia into the left scrotum. No testicular tenderness, masses, or skin changes. Musc: Full ROM, no deformity Skin: Warm, dry Neuro: Alert, oriented, grossly intact, sensation intact Psych: Cooperative, appropriate mood and affect [facility] Medical History Chronic respiratory failure with hypoxia and hypercapnia COPD exacerbation Angina at rest Pulmonary embolus COVID Fecal occult blood test positive Abnormal chest CT COPD with acute exacerbation Squamous cell carcinoma of left lung Lung mass Depression Myocardial infarct Coronary artery disease Pulmonary neoplasm Wears glasses Wears dentures Cancer Anxiety Abrasion History of steroid therapy Prostate disease High cholesterol Injury of back Syncope History of weight loss Former smoker COPD (chronic obstructive pulmonary disease) On home oxygen therapy Shortness of breath on exertion Chronic cough History of stress test Cardiology follow-up encounter Chest pain No pertinent family history 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 Nocturnal hypoxemia Chronic hypoxemic respiratory failure Bronchiectasis Prostate CA CAD (coronary artery disease) HLD (hyperlipidemia) Benign essential HTN Home Medications ?Medication ?Instructions ?Recorded ?Last Taken ?Type nitroglycerin 0.4 mg sublingual 0.4 mg sublingual Q5M PRN Chest 12/29/14 1 Week Ago History tablet Pain ~07/02/20 fluticasone propionate 230 2 puff inhalation BID breat nicho 08/07/22 06/03/24 History mcg-salmeterol 21 mcg/actuation HFA inhaler (Advair HFA) atorvastatin 40 mg tablet 40 mg PO QHS cholesterol 06/02/24 History duloxetine 30 mg capsule,delayed 30 mg PO QPM DEPRESSI ON 03/25/23 06/02/24 History release tamsulosin 0.4 mg capsule 0.4 mg PO QPM BLADDER/ PROST ATE 03/25/23 06/02/24 History tiotropium bromide 2.5 2 puff inhalation DAILY copd 03/25/23 06/03/24 History mcg/actuation mist for inhalation (Spiriva Respimat) ezetimibe 10 mg tablet 10 mg PO DAILY cholesterol 0 09/28/23 06/02/24 History albuterol sulfate 90 mcg/actuation 2 puff inhalation Q 4H PRN wheezing 02/19/24 Unknown History aerosol inhaler aspirin 81 mg tablet,delayed 81 mg PO DAILY heart 01/3106/02/24 History release (Enteric Coated Aspirin) oxycodone 5 mg tablet 5 mg PO Q4H PRN chronic pain 02/21/24 06/03/24 History ondansetron 4 mg disintegrating 4 mg PO DAILY PRN naus ea and 03/30/24 05/29/24 History tablet vomiting roflumilast 500 mcg tablet 500 mcg PO DAILY 03/30/24 0 06/03/24 History collagenase clostridium histo. 250 1 applic topical DA KAREN 05/22/24 05/21/24 History unit/gram topical ointment (Santyl) guaifenesin 600 mg tablet, 1,200 mg PO BID PRN cough 0 05/22/24 06/03/24 History extended release 12 hr (Mucinex) metoprolol tartrate 50 mg tablet 50 mg PO BID #60 tabs 05/24/24 06/03/24 Rx furosemide 20 mg tablet (Lasix) 20 mg PO DAILY PRN chris ght gain 30 06/05/24 05/21/24 Rx days #0 tabs lorazepam 1 mg tablet 1 mg PO TID PRN anxiety 30 d ays #0 06/05/24 06/02/24 Rx tabs sulfamethoxazole 800 1 tab PO BID 2 weeks #28 tab s 06/15/24 Unknown Rx mg-trimethoprim 160 mg tablet (Bactrim DS) doxycycline hyclate 100 mg capsule 100 mg PO BID 2 wee ks #28 caps 09/20/24 Unknown Rx polyethylene glycol 3350 17 17 g PO DAILY #119 grams 0 10/04/24 Unknown Rx gram/dose oral powder (Miralax) sennosides 8.6 mg-docusate sodium 1 tab-cap PO BID PRN constipation 10/04/24 Unknown Rx 50 mg tablet (Senna with Docusate 2 weeks #28 tabs Sodium) Allergy/AdvReac Type Severity Reaction Status Date / Time isosorbide (From Imdur) Allergy Other-patient Verified 09/17/24 10:53 blacks out Family History Mother Cancer Father Heart disease COPD (chronic obstructive pulmonary disease) Surgical History Hx of pneumonectomy Hx of CABG Hx of CABG Hx of heart artery stent Hx of transurethral resection of prostate Social History household members: spouse Smoking Status: Former smoker Tobacco: How many years used: 45 Electronic Cigarette Use: not used how long ago did patient quit smokin, second hand exposure: Yes alcohol intake: never substance use type: does not use EXAM Physical Exam Const Vital Signs: 10/04/24 21:28 Temperature 98.1 F Temperature Source Oral Pulse Rate 85 Respiratory Rate 22 H Blood Pressure 127/71 H Blood Pressure Mean 89 Pulse Ox 100 Oxygen Delivery Method Nasal Cannula Oxygen Flow Rate (L/min) 4 MDM MDM MDM Narrative Medical decision making narrative: 84-year-old male with multiple comorbidities including COPD on chronic 5/4 L nasal cannula, CAD, HLD, depression presents for evaluation of constipation. Patient states he has not had a bowel movement in 4 days. Associated symptoms are mild left lower quadrant abdominal pain and difficulty urinating. Physical exam consist of large stool ball in the rectum, stool was soft and therefore I was able to manually disimpact. Differential diagnosis includes but is not limited to constipation, ileus, obstruction, diverticulitis, UTI, urinary retention secondary to constipation, hernia. Prior to treatment for constipation will obtain basic labs, UA, CT abdomen pelvis. Will Bladder Scan 354. CBC without leukocytosis patient has baseline anemia. BMP relatively unremarkable. CT abdomen pelvis shows stercoral proctitis and possible rectal fecal impaction. This is consistent with constipation. Soapsuds enema ordered. He does have cholelithiasis and a small level cyst. A simple right renal cyst. He is mildly enlarged prostate. Extensive aortic iliac calcifications. 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 Diverticulosis without diverticulitis. Patient will need to follow-up with his inferior AAA outpatient. I suspect that his difficulty in urination is secondary to his significant constipation. Patient has yet to urinate here in the emergency department but I am hoping with enema he will be able to urinate. Patient has yet to receive his enema. His and his are updated of all results. They know of the infrarenal AAA. Patient signed out to oncoming physician who will write abnormal results and ability for patient to urinate. Suspect patient will likely discharge home. Daily MiraLAX with stool softeners as needed. Follow-up with primary care physician. Impression: 1. Constipation Lab Data Labs: Laboratory Results - last 24 hr 10/04/24 21:42 WBC 9.8 RBC 4.37 L Hgb 11.6 L Hct 38.7 L MCV 88.6 MCH 26.5 L MCHC 30.0 L RDW Std Deviation 53.4 H RDW Coeff of Estelita 16.5 H Plt Count 275 MPV 8.5 Immature Gran % (Auto) 0.400 Neut % (Auto) 83.9 H Lymph % (Auto) 7.6 L Ritchie % (Auto) 7.4 Eos % (Auto) 0.5 Baso % (Auto) 0.2 Absolute Neuts (auto) 8.2 H Absolute Lymphs (auto) 0.74 L Nucleated RBC % 0 Sodium 142 Potassium 4.1 Chloride 105 Carbon Dioxide 24.6 Anion Gap 13 BUN 24 H Creatinine 0.66 L Estim Creat Clear Calc 73.51 Est GFR (MDRD) Non-Af 94 BUN/Creatinine Ratio 35.4 H Glucose 96 Calcium 9.4 Radiography Diagnostic Testing: Clinical Impression(s) from Imaging Studies Abdomen/Pelvis CT 10/04/24 21:37 IMPRESSION: Stercoral proctitis and possible rectal fecal impaction. Reading Location: [place] [id number] Discharge Plan Triage Chief Complaint: Constipation ED Provider: Yusef Gallego Dx/Rx/DC Orders Clinical Impression: Constipation Instructions: Treating Constipation, Eating a High-Fiber Diet, ED Constipation (Adult) Prescriptions: New polyethylene glycol 3350 [Miralax] 17 gram/dose powder 17 g PO DAILY Qty: 119 0RF sennosides-docusate sodium [Senna with Docusate Sodium] 8.6-50 mg tablet 1 tab-cap PO BID PRN (Reason: constipation) 14 Days Qty: 28 0RF No Action fluticasone propion-salmeterol [Advair HFA] 230-21 mcg/actuation HFA aerosol inhaler 2 puff inhalation BID nitroglycerin 0.4 MG tablet 0.4 mg SL Q5M PRN (Reason: Chest Pain) atorvastatin 40 mg tablet 40 mg PO QHS duloxetine 30 mg capsule,delayed release(DR/EC) 30 mg PO QPM tamsulosin 0.4 mg capsule 0.4 mg PO QPM Spiriva Respimat 2.5 mcg/actuation mist 2 puff INHALATION DAILY Rx Instructions: USES AROUND NOON ezetimibe 10 mg tablet 10 mg PO DAILY Patient Comments: PT TAKES AT NIGHT albuterol sulfate 90 mcg/actuation HFA aerosol inhaler 2 puff inhalation Q4H PRN (Reason: wheezing) aspirin [Enteric Coated Aspirin] 81 mg tablet,delayed release (DR/EC) 81 mg PO DAILY Patient Comments: PT TAKES AT BEDTIME oxycodone 5 mg tablet 5 mg PO Q4H PRN ondansetron 4 mg tablet,disintegrating 4 mg PO DAILY PRN (Reason: nausea and vomiting) roflumilast 500 mcg tablet 500 mcg PO DAILY Patient Comments: PT TAKES AND DOESN'T TAKE. HE TAKES A 1/2 TABLET, A WHOLE TABLET BOTHERS HIM. Santyl 250 unit/gram ointment 1 applic topical DAILY Patient Comments: USING DIFFERENT TREATMENT guaifenesin [Mucinex] 600 mg tablet extended release 12hr 1,200 mg PO BID PRN (Reason: cough) metoprolol tartrate 50 mg Tablet 50 mg PO BID Qty: 60 1RF Patient Comments: SPLITTING IN HALF RIGHT NOW BECAUSE IT MAKES HIM DIZZY. sulfamethoxazole-trimethoprim [Bactrim DS] 800-160 mg tablet 1 tab PO BID 14 Days Qty: 28 0RF furosemide [Lasix] 20 mg tablet 20 mg PO DAILY PRN (Reason: weight gain) 30 Days Qty: 0 0RF Patient Comments: PT ONLY TAKES NEEDED; HASNT TAKEN IN 10 DAYS lorazepam 1 mg tablet 1 mg PO TID PRN (Reason: anxiety) 30 Days Qty: 0 0RF Patient Comments: PT TAKES NEEDED doxycycline hyclate 100 mg capsule 100 mg PO BID 14 Days Qty: 28 0RF Primary Care Provider: Dillan Cummins Referrals: Dillan Cummins MD [Primary Care Provider] - 3-5 Days Activity Restrictions/Additional Instructions: Recommend daily MiraLAX. Stool softeners. Follow-up with primary care physician. Make sure you are eating plenty of fiber and drinking plenty of water. CT abdomen pelvis showed an infrarenal AAA 3.7 cm. You need to have this further worked up outpatient. Print Language: Greenlandic Disposition Disposition: Home, Self Care
[2024-10-04 21:55] LABS: Hematocrit 38.7 % (40-54); Hemoglobin 11.6 g/dL (13.0-16.5); Immature Granulocytes Count 0.040 X10^3/uL (0.0-0.0); Mean Corp Hgb Conc 30.0 g/dL (32-36); Mean Corpuscular Volume 88.6 fL (80-94); Mean Platelet Vol. 8.5 fl (6.2-12.0); NRBC Flagged by Analyzer 0 % (0-5); Platelet Count 275 K/mm3 (150-450); RBC Distribution Width CV 16.5 % (11.6-14.6); RBC Distribution Width SD 53.4 fl (35.1-43.9); Red Blood Count 4.37 M/mm3 (4.6-6.2); White Blood Count 9.8 K/mm3 (4.4-11.0)
--- OUTSIDE RECORDS SUMMARY | 2024-10-04 22:02 | XMS RPT_ITS | CCD ---
Author Organization [facility] Providers Care Statement Processor Name Role Phone MARNIE, ROZ Unavailable Unavailable MARNIE ROZ Unavailable Unavailable Mei Cummins Unavailable Unavailable MARNIE, ROZ Unavailable Unavailable ROZ DYE Unavailable Unavailable Mei Cummins Unavailable Unavailable Mei Cummins Primary Care Provider Enio SOTO MD, Daesung Unavailable Mei Cummins MD Primary Care Provider Dr. Mei Cummins Primary Care Provider Dr. Mei Cummins Referring Provider Dr. Yong Calvillo Attending Provider [phone] [...] Unavailable Dr. Mei Cummins Primary Care Provider [phone] Dr. Mei Cummins Referring Provider Dr. Yong Calvillo Attending Provider [phone] Dr. Mei Cummins Primary Care Provider Dr. Randy Londono Emergency Provider Dr. Jacob Suazo Admit Provider Dr. Jacob Suazo Attending Provider Dr. Jacob Suazo Other Provider Dr. Sushila Rivers Attending Provider Dr. Martin Zaragoza Attending Provider Dr. Daksha Corey Attending Provider Dr. Oliverio Allen Attending Provider Dr. Martin Zaragoza Other Provider eMi Cummins Primary Care Provider OLIVERIO HERRMANN Attending Unavailable MEI CUMMINS Primary Care Unavailable MEI CUMMINS Primary Care Unavailable OLIVERIO HERRMANN Attending Unavailable Aunja Steen MD Unavailable Dr. Mei Cummins Primary [...] Admitting Unavailable MEI CUMMINS Primary Care Unavailable [facility] OIL DELIVERER.Twila MCCLENDON Unavailable Efraín OIL DELIVERER.MEDICAL DEVICE ASSEMBLER, Jamshid Unavailable Dr. Mei Cummins MD Referring Provider Sosa Araujo Attending Provider Joie ARREOLA, Dr. Hudson Emergency Provider Dr. Mei Cummins MD Primary Care Provider [phone] Tita SOTO, Dr. Sushila Anderson Admit Provider Tita SOTO, Dr. Sushila Anderson Referring Provider Tita SOTO, Dr. Sushila Anderson Other Provider Sebastian ARREOLA, Dr. Grimaldo Attending Provider Sebastian ARREOLA, Dr. Grimaldo Other Provider Gabriele ARREOLA, Dr. James Other Provider Gabriele ARREOLA, Dr. James Attending Provider Dr. Mei Cummins MD Attending Provider Jose AIRPLANE ELECTRICIAN-C, Rosa E Attending Provider Felice DPM, Dr. Alford Referring Provider Jose AIRPLANE ELECTRICIAN-C, Rosa E Other Provider Jose AIRPLANE ELECTRICIAN-C, Rosa E Referring Provider Yair DPM, Dr. Magdaleno Attending Provider Yair OAKESM, Dr. Magdaleno Other Provider Dr. Randy Londono MD Emergency Provider Gabriele ARREOLA, Dr. James Admit Provider Enio ARREOLA, Dr. Toribio Attending Provider Enio ARREOLA, Dr. Toribio Other Provider Dr. Mei Cummins MD Referring Provider Sosa Araujo Attending Provider Joie ARREOLA, Dr. Hudson Emergency Provider Maria G SOTO, Dr. Grimaldo Primary Care Provider Tita SOTO, Dr. Sushila Anderson Admit Provider Tita SOTO, Dr. Sushila Anderson Referring Provider Tita SOTO, Dr. Sushila Anderson Other Provider Sebastian ARREOLA, Dr. Grimaldo Attending Provider Sebastian ARREOLA, Dr. Grimaldo Other Provider Gabriele ARREOLA, Dr. James Other Provider Gabriele ARREOLA, Dr. James Attending Provider Maria G SOTO, Dr. Grimaldo Attending Provider Jose AIRPLANE ELECTRICIAN-C, Rosa E Attending Provider Testrajose DPM, Dr. Alford Referring Provider Jose AIRPLANE ELECTRICIAN-C, Rosa E Other Provider Jose AIRPLANE ELECTRICIAN-C, Rosa E Referring Provider Yair DPM, Dr. Magdaleno Attending Provider Yair DPM, Dr. Magdaleno Other Provider Bry SOTO, Dr. Padilla Emergency Provider Gabriele ARREOLA, Dr. James Admit Provider Enio ARREOLA, Dr. Toribio Attending Provider Enio ARREOLA, Dr. Toribio Other Provider Saul SOTO, Dr. Rocha Emergency Provider Hina SOTO, Dr. Elizabeth Alexis Admit Provider [phone] Hina SOTO, Dr. Elizabeth Alexis Attending Provider Hina SOTO, Dr. Elizabeth Alexis Other Provider Josh ARREOLA, Dr. Zelaya Attending Provider Maria G SOTO, Dr. Grimaldo Referring Provider [phone] Gabriele ARREOLA, Dr. James Referring Provider Sosa Araujo Attending Provider Sosa Araujo Referring Provider Teresa Garner Attending Provider Teresa Garner Referring Provider Genaro COUCH-CMirna Other Provider [place] OIL DELIVERER.MEDICAL DEVICE ASSEMBLER, Twila Unavailable Unavail able [place] OIL DELIVERER.MEDICAL DEVICE ASSEMBLER, Twila Unavailable Maria G SOTO, Dr. Grimaldo Primary Care Provider Gabriele ARREOLA, Dr. James Other Provider Sebastian ARREOLA, Dr. Grimaldo Other Provider Sebastian ARREOLA, Dr. Grimaldo Attending Provider Gabriele ARREOLA, Dr. James Attending Provider Mirna OIL DELIVERER.MEDICAL DEVICE ASSEMBLER, Twila Unavailable Dr. Mei Cummins MD Primary Care Provider [phone] Jose AIRPLANE ELECTRICIAN-C, Rosa E Attending Provider Jose AIRPLANE ELECTRICIAN-C, Rosa E Other Provider Felice GOMEZ, Dr. Alford Referring Provider Maria G SOTO, Dr. Grimaldo Referring Provider Dr. Mei Cummins MD Primary Care Provider Felice DPM, Dr. Alford Referring Provider Jose AIRPLANE ELECTRICIAN-C, Rosa E Attending Provider Jose AIRPLANE ELECTRICIAN-C, Rosa E Referring Provider Maria G SOTO, Dr. Grimaldo Primary Care Provider [phone] Felice DPM, Dr. Alford Referring Provider Yair DPM, Dr. Magdaleno Attending Provider Yair DPM, Dr. Magdaleno Other Provider Merlene SOTO, Dr. Misha Merino Attending Provider Dr. Aaron Hurst MD Emergency Provider ELDERBROCK, MEI D Attending Unavailable ELDERBROCK, MEI D Primary Care Unavailable MASCI, SALAZAR Referring Unavailable ELDERBROCK, MEI D Primary Care Unavailable MASCI, SALAZAR Referring Unavailable ELDERBROCK, MEI D Primary Care Unavailable MASCI, SALAZAR Referring Unavailable ELDERBROCK, MEI D Primary Care Unavailable VASHTI OTOOLE Referring Unavailable ELDERBROCK, MEI D Primary Care Unavailable TESTRAKEJUAN CARLOS Attending Unavailable ELDERBROCK, MEI D Primary Care Unavailable SELBETITO JC Referring Unavailable ELDERBROCK, MEI D Primary Care Unavailable BETITO MAURO Attending Unavailable SELIGSONBETITO Referring Unavailable ELDERBROCK, MEI D Primary Care Unavailable MASCI, SALAZAR Referring Unavailable ELDERBROCK, MEI D Primary Care Unavailable MASCI, SALAZAR Referring Unavailable ELDERBROCK, MEI D Primary Care Unavailable ELDERBROCK, MEI D Primary Care Unavailable TESTRAKE, JUAN CARLOS Referring Unavailable ELDERBROCK, MEI D Primary Care Unavailable BETITO MAURO Attending Unavailable TYRELL VIGIL Referring Unavailable ELDERBROCK, MEI D Primary Care Unavailable MASCI SALAZAR Attending Unavailable ELDERBROCK, MEI D Primary Care Unavailable ROSALIE MARTINEZ Attending Unavailable ELDERBROCK, MEI D Primary Care Unavailable ELDERBROCK, MEI D Primary Care Unavailable KAILASH CORDOVA Attending Unavailable ELDERBROCK, MEI D Primary Care Unavailable TWILA WESTON Referring Unavailabl e ELDERBROCK, MEI D Primary Care Unavailable MASCSALAZAR Domingo Referring Unavailable ELDERBROCK, MEI D Primary Care Unavailable KAILASH CORDOVA Attending Unavailable AB CALVILLO Referring Unavailable ELDERBROCK, MEI D Primary Care Unavailable TESTRAJUAN CARLOS GARCIA Attending Unavailable TESTRAKEJUAN CARLOS Referring Unavailable ELDERBROCK, MEI D Primary Care Unavailable ELDERBROCK, MEI D Primary Care Unavailable VIGILTYRELL FIGUEROA Referring Unavailable ELDERBROCK, MEI D Primary Care Unavailable BELA MANZANO Attending Unavailable BELA MANZANO Referring Unavailable ELDERBROCK, MEI D Primary Care Unavailable ELDERBROCK, MEI D Attending Unavailable ELDERBROCK, MEI D Primary Care Unavailable MASCHawa SALAZAR Referring Unavailable ELDERBROCK, MEI D Primary Care Unavailable ELDERBROCK, MEI D Primary Care Unavailable TESTRAKEJUAN CARLOS Attending Unavailable ELDERBROCK, MEI D Primary Care Unavailable KAILASH CORDOVA Referring Unavailable ELDERBROCK, MEI D Primary Care Unavailable BELA MANZANO SALAZAR Attending Unavailable BELA MANZANO Referring Unavailable ELDERBROCK, MEI D Primary Care Unavailable TWILA WESTON Attending Unavailabl e ELDERBROCK, MEI D Primary Care Unavailable TESTRAKE, JUAN CARLOS Attending Unavailable ELDERBROCK, MEI D Primary Care Unavailable TESTRAKE, JUAN CARLOS Attending Unavailable ELDERBROCK, MEI D Primary Care Unavailable MASCI, SALAZAR Referring Unavailable ELDERBROCK, MEI D Primary Care Unavailable TESTRAKE, JUAN CARLOS Referring Unavailable ELDERBROCK, MEI D Primary Care Unavailable TESTRAKE, JUAN CARLOS Attending Unavailable TESTRAKE, JUAN CARLOS Referring Unavailable ELDERBROCK, MEI D Primary Care Unavailable KAILASH CORDOVA Attending Unavailable ROSALIE MARTINEZ Referring Unavailable ELDERBROCK, MEI D Primary Care Unavailable BETITO MAURO Attending Unavailable ELDERBROCK, MEI D Primary Care Unavailable MARIBELL, BELA LINCOLN Referring Unavailable ELDERBROCK, MEI D Primary Care Unavailable KAILASH CORDOVA Attending Unavailable ELDERBROCK, MEI D Primary Care Unavailable MASCI, SALAZAR Referring Unavailable ELDERBROCK, MEI D Primary Care Unavailable CHARI VELEZ Referring Unavailable ELDERBROCK, MEI D Primary Care Unavailable CLICKKAILASH Attending Unavailable ELDERBROCK, MEI D Primary Care Unavailable TESTRAKE, JUAN CARLOS Attending Unavailable TESTRAKE, JUAN CARLOS Referring Unavailable ELDERBROCK, MEI D Primary Care Unavailable SHARYN SKY Referring Unavailable ELDERBROCK, MEI D Primary Care Unavailable TYRELL VIGIL Referring Unavailable ELDERBROCK, MEI D Primary Care Unavailable MASCI, SALAZAR Referring Unavailable ELDERBROCK, MEI D Primary Care Unavailable TESTRAKE, JUAN CARLOS Attending Unavailable ELDERBROCK, MEI D Primary Care Unavailable TESTRAKE, JUAN CARLOS Referring Unavailable ELDERBROCK, MEI D Primary Care Unavailable CLICKKAILASH Referring Unavailable ELDERBROCK, MEI Bruno Primary Care Unavailable Elderbrock , Dr. Grimaldo Primary Care Provider Saul SOTO, Dr. Rocha Emergency Provider Hina SOTO, Dr. Elizabeth Alexis Admit Provider [phone] Hina SOTO, Dr. Elizabeth Alexis Other Provider Dr. Jacob Suazo DO Attending Provider Dr. Jacob Suazo DO Other Provider Dr. Jacob Suazo DO Referring Provider Josh DO, Dr. Zelaya Attending Provider Sosa Araujo Attending Provider Maria G SOTO, Dr. Grimaldo Referring Provider Sosa Araujo Referring Provider Teresa Garner Attending Provider Teresa Garner Referring Provider Genaro AIRPLANE ELECTRICIAN-CMirna Other Provider Felice DPM, Dr. Alford Referring Provider Yair DPM, Dr. Magdaleno Attending Provider Yair DPM, Dr. Magdaleno Other Provider Merlene SOTO, Dr. Misha Merino Attending Provider Aris SOTO, Dr. Walker Attending Provider [phone] Aris SOTO, Dr. Walker Emergency Provider Maria G SOTO, Dr. Grimaldo Primary Care Provider Gabriele ARREOLA, Dr. James Other Provider Aris SOTO, Dr. Walker Attending Provider Sosa Silva Attending Unavailable ElderbrockMei Referring Unavailable Elderbrock, Mei Primary Care Unavailable Mei Cummins Referring Unavailable Sosa Silva Attending Unavailable Sosa Silva Attending Unavailable Maria G, Mei Primary Care Unavailable Elderbromagno, Mei Referring Unavailable Koram, Elizabeth Vanesa Consulting Unavailable Koram, Elizabeth Vanesa Admitting Unavailable Jacob Suazo Attending Unavailable Maria G, Mei Primary Care Unavailable Jacob Suazo Consulting Unavailable Garcia Moreno Attending Unavailable Salazar Owens Consulting Unavailable Salazar Owens Admitting Unavailable Elderbrock, Mei Primary Care Unavailable Miguel Lara Consulting Unavailable Koram, Elizabeth Vanesa Consulting Unavailable Etta Edmondson Attending Unavailable Etta Edmondson Consulting Unavailable Juan Carlos Viveros Referring Unavailable Jose AIRPLANE ELECTRICIAN, Rosa Davila Attending Unavailabl e Mei Cummins Primary Care Unavailable Sosa Silva Attending Unavailable Sosa Silva Referring Unavailable [facility] Unavailable TestJuan Carlos galan Referring Unavailable Jose AIRPLANE ELECTRICIAN, Rosa E Attending Unavailabl e [facility] Care Unavailable Elizabeth Santamariaa Attending Unavailable Salazar Owens Admitting Unavailable Salazar Owens Consulting Unavailable [facility] Care Unavailable Etta Edmondson Attending Unavailable Miguel Lara Consulting Unavailable Koram, Elizabeth Vanesa Consulting Unavailable White, Sushila L Consulting Unavailable White, Sushila L Referring Unavailable White, Sushila L Admitting Unavailable Mei Cortes Attending Unavailable [facility] Primary Care Unavailable Jacob Suazo Consulting Unavailable Mei Cortes Consulting Unavailable Ruben Zuniga Referring Unavailable [facility] Care Unavailable Ruben Zuniga Attending Unavailable Garcia Moreno Attending Unavailable [facility] Care Unavailable [facility] Referring Unavailable Elizabeth Santamaria Attending Unavailable Jacob Suazo Admitting Unavailable Jacob Suazo Consulting Unavailable [facility] Care Unavailable Mei Cortes Attending Unavailable Mei Cortes Consulting Unavailable Miguel Lara Attending Unavailable [place] Consulting Unavailable Izaiah Silvestre Consulting Unavailable Yong Calvillo Consulting Unavailable Bela Baldwin Consulting Unavailable Abrahan Blanca Consulting Unavailable Mat, Clay Consulting Unavailable Olga Rice Consulting Unavailab Marco Antonio Wisdom Consulting Unavailable Philip Estes Consulting Unavailable Shelli Moss Consulting Unavailable AlRobbie olsen Consulting Unavailable Steven, Sanjay Consulting Unavailable Daniele Guo Consulting Unavailable Najma, Stanislaw Consulting Unavailable Srikanth Melvin Consulting Unavailable Oswaldo Calvillo Consulting Unavailable Jose AIRPLANE ELECTRICIAN, Rosa E Attending Unavailabl e Jose AIRPLANE ELECTRICIAN, Rosa E Referring Unavailabl e [facility] Unavailable Jose AIRPLANE ELECTRICIAN, Rosa E Consulting Unavailabl e TestJuan Carlos galan Referring Unavailable Jose AIRPLANE ELECTRICIAN, Rosa E Consulting Unavailabl e Jose AIRPLANE ELECTRICIAN, Rosa E Attending Unavailabl e [facility] Unavailable Jose AIRPLANE ELECTRICIAN, Rosa E Attending Unavailabl e Jose AIRPLANE ELECTRICIAN, Rosa E Referring Unavailabl e Rasta Mazariegos Consulting Unavailable [facility] Care Unavailable Jose AIRPLANE ELECTRICIAN, Rosa E Consulting Unavailabl e Jose AIRPLANE ELECTRICIAN, Rosa E Attending Unavailabl e Jose AIRPLANE ELECTRICIAN, Rosa E Referring Unavailabl e Elderbrock, Mei Primary Care Unavailable Etta Edmondson Referring Unavailable Elderbrock, Mei Primary Care Unavailable Oliverio Allen Attending Unavailable Elderbrock, Mei Primary Care Unavailable Steven Kauffman Attending Unavailable Koram, Elizabeth Vanesa Referring Unavailable Elderbrock, Mei Primary Care Unavailable Friend, Garcia Attending Unavailable Koram, Elizabeth Vanesa Referring Unavailable White, Sushila L Consulting Unavailable White, Sushila L Attending Unavailable White, Sushila L Referring Unavailable White, Sushila L Admitting Unavailable Elderbrock, Mei Primary Care Unavailable Jacob Suazo Attending Unavailable Jacob Suazo Consulting Unavailable Malu Steen Attending Unavailable Malu Steen Consulting Unavailable Salazar Owens Attending Unavailable Elderbrock, Mei Primary Care Unavailable Jacob Suazo Attending Unavailable Tereletsnegro, Mei Attending Unavailable Tereletsky, Mei Consulting Unavailable Josh, Garcia Attending Unavailable Jacob Suazo Referring Unavailable Sosa Silva Attending Unavailable Sosa Silva Referring Unavailable Elderbrock, Mei Primary Care Unavailable Sosa Silva Referring Unavailable Sosa Silva Attending Unavailable Elderbrock, Mei Primary Care Unavailable Sosa Silva Attending Unavailable TomnasSosa feng Referring Unavailable Elderbrock, Mei Primary Care Unavailable Caryl Hendricks Attending Unavailable Sosa Silva Attending Unavailable Elderbrock, Mei Referring Unavailable Elderbrock, Mei Primary Care Unavailable Elderbrock, Mei Referring Unavailable Elderbrock, Mei Primary Care Unavailable Elderbrock, Mei Attending Unavailable Testrake, Juan Carlos Referring Unavailable Rasta Mazariegos Attending Unavailable Elderbrock, Mei Primary Care Unavailable Rasta Mazariegos Attending Unavailable Testrake, Juan Carlos Referring Unavailable Elderbrock, Mei Primary Care Unavailable Testrake, Juan Carlos Referring Unavailable MazariegosRasta Attending Unavailable Elderbrock, Mei Primary Care Unavailable Testrake, Juan Carlos Referring Unavailable Yanna Mazareigoshan Attending Unavailable Elderbrock, Mei Primary Care Unavailable Malu Steen Attending Unavailable Jacob Suazo Admitting Unavailable Elderbrock, Mei Primary Care Unavailable Jacob Suazo Consulting Unavailable Tereletsky, Mei Consulting Unavailable Koram, Elizabeth Vanesa Consulting Unavailable Koram, Elizabeth Vanesa Admitting Unavailable Jacob Suazo Attending Unavailable Elderbrock, Mei Primary Care Unavailable Testrake, Juan Carlos Referring Unavailable Mazariegos, Rasta Attending Unavailable [facility] Primary Care Unavailable Juan Carlos Viveros Referring Unavailable Rasta Mazariegos Attending Unavailable [facility] Care Unavailable Josué Hunt Chi Attending Unavailable Josué Hunt Chi Admitting Unavailable [facility] Mei [facility] Care Unavailable [facility] Primary Care Unavailable Aaron Hurst Attending Unavailable Teresa Garner Referring Unavailable [facility] Primary Care Unavailable Mirna Lam Unavailable Teresa Garner Attending Unavailable Sosa Silva Attending Unavailable [facility] Primary Care Unavailable [facility] Referring Unavailable Allergies Allergy Classification Reported Allergen(s) Allergy Type Date of Onset Reaction(s) Facility Isosorbide (2 sources) Isosorbide Drug Allergy 6 [facility] (20 sources) isosorbide; Translations: [ISOSORBIDE MONONITRATE] Drug Allergy 6 [facility] (4 sources) Isosorbide Dinitrate Drug Allergy 6 [place], [place] (20 sources) Isosorbide Drug Allergy 0 Other-patient blacks out [place], [place] (1 source) traMADol Drug Allergy 1 Nausea Only [place], [place] (1 source) Isosorbide Drug Allergy 5 [facility] Repository Medications Current Medications Medication Drug Class(es) Dates Sig (Normalized) Sig (Original) acetaminophen 65 mg/ml / oxyCODONE hydrochloride 1 mg/ml oral solution (2 sources) Opioid Agonist oxyCODONE-acetam i nophen (Roxicet) 5-325 MG/5ML solution Take by mouth. 0 Active [id number] actuat albuterol 0.09 mg/actuat metered dose [...] needed for shortness of breath or wheezing 18 July 25, 2022 12:13pm July 25, 2022 [...] Q4H as needed for J44.9 COPD 120 6 February 14, 2020 1:43pm March 25, 2023 4:11pm Chronic obstructive pulmonary disease, unspecified Start: 04-19-2016 End: 03-19-2020 Start: 04-19-2016 End: [...] 04-21-2023 End: 03-16-2025 Start: 03-27-2023 End: 10-05-2023 take 2 tablets by mouth twice daily, then take 1 tablet by mouth twice daily Apixaban (Eliquis Dvt-Pe Treat 30d Start) 5 mg (74 tabs) tablets,dose pack Discontinued 5 mg PO TWICE A DAY 74 0 March 27, 2023 1:00am October 05, 2023 6:04pm blood thinner 10 mg (2 tabs) twice daily for 7 days and then twice daily to continue. Start: 03-27-2023 End: 10-05-2023 Comment on above: Take 5 mg by mouth t wo times a day. Take 1 tablet by raymond th two times a day. aspirin 81 mg delayed releas e oral tablet (20 sources) Platelet Aggregation Inhibitor, Nonsteroidal Anti-inflammatory Drug Start: 02-23-2020 Start: 12-29-2014 End: 10-17-2023 Comment on above: Take 81 mg by mouth once daily. atorvastatin 40 mg oral tabl et (20 sources) HMG-CoA Reductase Inhibitor Start: 09-29-2022 End: 08-01-2024 Start: 07-09-2020 End: 03-25-2023 Start: 04-06-2020 take [...] 04/14/2020 Active budesonide 0.25 mg/ml inhalation suspension (14 sources) Corticosteroid Start: 06-29-19 budesonide (PULMICORT) 0.5 mg/2 mL nebulizer solution Indications: 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) Use 2 mL via nebulizer two times [...] ea once daily. APPLY TO AFFECTED AREA 12 hr dextromethorphan hydrobromide 30 mg / guaiFENesin 600 mg extended release oral tablet (2 sources) Uncompetitive M-lxmnla-G-aspartate Receptor Antagonist, Sigma-1 Agonist take 1 tablet by mouth every twelve hours dextromethorpha n-guaiFENesin (Mucinex DM) 30-600 MG 12 hr tablet Take 1 tablet by mouth in the morning and 1 tablet in the evening. Do not crush, chew, or split.. 0 Active docusate sodium 50 mg / sennosides, detention 8.6 mg oral tablet (3 sources) Start: 0 End: 0 sennosides-docu sate sodium (SENOKOT-S) 8.6-50 MG tablet 1 tablet doxycycline hyclate 100 mg oral capsule (20 sources) Tetracycline-class Drug Start: Start: 01-19-2024 End: 01-29-2024 take 1 tablet by mouth twice daily [...] Start: 07-27-2020 take 1 capsule by mouth twice da [...] 40 mg, Subcutaneous, DAILY, First dose on Thu02/20/20 at 1500 erythromycin 0.005 mg/mg ophthalmic ointment (20 sources) Macrolide, Macrolide Antimicrobial Start: 10-26-2023 End: 11-02-2023 erythromycin (ROMYCIN) 5 mg/gram (0.5 %) ophthalmic ointment Use 1 application in the left eye four times daily for 7 days. 3.5 g 1 10/26/2023 11/02/2023 Active Start: 10-17-2023 End: 10-23-2023 ezetimibe 10 mg oral tablet (20 sources) Dietary Cholesterol Absorption Inhibitor Start: 06-08-2023 End: 06-27-2024 Comment on above: Take 1 tablet by raymond once daily. 120 actuat fluticasone propionate 0.23 mg/actuat / salmeterol 0.021 mg/actuat metered dose inhaler (20 sources) Corticosteroid, beta2-Adrenergic Agonist Start: 09-21-2023 take 2 puff(s) by inhalation twice daily ADVAIR HFA 230-21 mcg/actuation inhaler Inhale 2 Puffs as instructed two times a day. 1 Each 09/21/2023 Active Start: 08-07-2022 Fluticasone Pr opion-Salmeterol (Advair Hfa) 230-21 mcg/actuation HFA aerosol inhaler Active 2 NMA INHALATION TWICE A DAY August 07, 2022 12:00am breathing Start: 08-07-2022 Start: 08-07-2022 Fluticasone Pr opion-Salmeterol [...] 04/15/2023 09/16/2023 Discontinued Start: 04-14-2022 End: 08-07-2022 Fluticasone Propion-Salmeter ol (Advair Hfa) 230-21 mcg/actuation HFA aerosol inhaler Discontinued 2 NMA INHALATION TWICE A DAY 02 09April 14, 2022 1:00am August 07, 2022 10:42am Start: 04-14-2022 End: 08-07-2022 Start: 04-14-2022 End: [...] as in structed two times a day. 12 hr guaiFENesin 600 mg extended release oral tablet (20 sources) Start: 10-17-2023 End: 05-22-2024 Start: 09-28-2023 End: 05-22-2024 take 2 tablets by mouth every twelve hours, then take 1 tablet by mouth every twelve hours Guaifenesin (Mucinex) 600 mg tablet extended release 12hr Discontinued 1200 mg PO Q12H 0 7 0 October 17, 2023 11:59am May 22, 2024 1:30pm cough Start: 11-29-2020 guaiFENesin (M UCINEX) 600 mg [...] 09, 2020 12:00am March 27, 2023 11:50am congestion Start: 04-06-2020 guaiFENesin (M UCINEX) extended release [...] 12hr Discontinued 1200 mg PO Q12H 60 1 August 12, 2017 12:00am May 13, 2018 1:24pm take 1 tablet by raymond twice daily as needed guaiFENesin 400 MG tablet Take 400 mg by mouth 2 times daily as needed 0 Active Comment on above: Take 2 tablets by mo ohh twice daily. Take 1,200 mg by raymond [...] 29, 2014 12:00am November 24, 2017 10:15am methylPREDNISolone 40 mg injection (1 source) Corticosteroid Start: 04-06-2020 methylPREDNISolone sodium (SOLU-MEDROL) injection 40 mg metoprolol tartrate 50 mg oral tablet (20 sources) beta-Adrenergic Konrad Start: 05-24-2024 Start: 10-17-2023 End: 05-24-2024 Start: 10-17-2023 End: 05-24-2024 Metoprolol Tartrate 25 mg Ta blet Discontinued 12.5 mg PO TWICE A DAY February 20, 2024 1:00am May 24, 2024 2:06pm heart Start: 10-17-2023 End: 08-01-2024 Start: 10-17-2023 End: 05-24-2024 Start: 10-17-2023 End: 02-20-2024 take 1 tablet by mouth twice daily, then take 0.5 tablet by mouth twice daily metoprolol tartrate, short acting, (LOPRESSOR) 25 mg tablet Take 1 tablet by mouth two times a day. Take 0.5 tab po bid. 12/21/2023 12/21/2023 Discontinued Start: 04-06-2020 take 25 mg by mouth [...] Nitrate Vasodilator Start: 12-29-2014 End: 06-08-2024 nitroglycerin (N itrolinguaL) 0.4 MG/SPRAY spray Place 1 spray under the tongue every 5 minutes as needed for chest pain. 0 Active Comment on above: Dissolve 1 tablet un anthony the tongue every 5 minutes as needed. ondansetron 4 mg disintegrat ing oral tablet (20 sources) Serotonin-3 Receptor Antagonist Start: 03-30-2024 Start: 07-31-2020 End: 09-28-2023 Start: 07-31-2020 End: 09-28-2023 take 1 tablet by mouth every eight hours as needed ondansetron (ZOFRAN) 4 mg tablet Take 4 mg by mouth every 8 hours as needed. 07/31/2020 Active Start: 03-02-2020 take 1 tablet by raymond [...] 05, 2022 12:00am Start: 10-30-2021 End: 10-23-2023 Start: 10-30-2021 take 1 tablet by raymond [...] daily. 30 tablet 3 03/23/2024 Active sennosides, detention 8.6 mg oral tablet (1 source) Start: [...] mg / trimethoprim 160 mg oral tablet (9 sources) Dihydrofolate Reductase Inhibitor Antibacterial, Sulfonamide Antimicrobial Start: 06-15-2024 Start: 06-15-2024 Sulfamethoxazo le-Trimethoprim (Bactrim Ds) 800-160 mg tablet Active 1 {tbl} PO TWICE A DAY 28 14 0 June 15, 2024 12:00am tamsulosin hydrochloride 0.4 mg oral capsule (20 [...] ug by inhal ation once daily Tiotropium Patterson (Spiriva Respimat) 2.5 mcg/actuation mist Active 2 NMA INHALATION DAILY March 25, 2023 1:00am copd USES AROUND NOON Start: 03-25-2023 take 1 puff(s) by in halation once daily Tiotropium Patterson (Spiriva Respimat) 2.5 mcg/actuation mist Active 2 PUFF INHALATION DAILY March 25, 2023 1:00am USES AROUND NOON Start: 11-18-2022 End: 09-16-2023 take 2 puff(s) by inhalation once daily SPIRIVA RESPIMAT 2.5 mcg/actuation inhaler Inhale 2 Puffs as instructed once daily. 1 Each 5 06/03/2023 09/16/2023 Discontinued Start: 02-07-2021 End: 03-25-2023 Start: 02-07-2021 End: 03-25-2023 take 2.5 ug by inhalation every twenty-four hours Tiotropium Patterson (Spiriva Respimat) 2.5 mcg/actuation mist Discontinued 2 NMA INHALATION Q24H 4 April 14, 2022 8:54am March 25, 2023 4:04pm copd administer at approximately the same time(s) each day Start: 02-07-2021 End: 03-25-2023 take 1 puff(s) by inhalation every twenty-four hours Tiotropium Patterson (Spiriva Respimat) 2.5 mcg/actuation mist Discontinued 2 PUFF INHALATION Q24H April 14, 2022 8:54am March 25, 2023 4:04pm administer at approximately the same time(s) each day Start: 10-12-2020 End: 02-07-2021 take 2.5 ug by inhalation every twenty-four hours Tiotropium Patterson (Spiriva Respimat) 2.5 mcg/actuation mist Discontinued 2 NMA INHALATION Q24H 4 October 12, 2020 12:05pm February 07, 2021 12:08pm copd administer at approximately the same time(s) each day Start: 10-12-2020 End: 02-07-2021 Start: 10-12-2020 End: 02-07-2021 take 2.5 ug by inhalation every twenty-four hours Tiotropium Patterson (Spiriva Respimat) 2.5 mcg/actuation mist Discontinued 2 NMA INHALATION Q24H October 12, 2020 12:05pm February 07, 2021 12:08pm administer at approximately the same time(s) each day Start: 10-12-2020 End: 02-07-2021 take 1 puff(s) by inhalation every twenty-four hours Tiotropium Patterson (Spiriva Respimat) 2.5 mcg/actuation mist Discontinued 2 PUFF INHALATION Q24H October 12, 2020 11:05am February 07, 2021 11:08am administer at approximately the same time(s) each day Start: 10-12-2020 End: 02-07-2021 take 1 puff(s) by inhalation every twenty-four hours Tiotropium Patterson (Spiriva Respimat) 2.5 mcg/actuation mist Discontinued 2 [...] ug by inhalation every twenty-four hours Tiotropium Patterson (Spiriva Respimat) 2.5 mcg/actuation mist Discontinued 2 NMA INHALATION Q24H July 09, 2020 3:40pm October 12, 2020 12:07pm copd administer at approximately the same time(s) each day Start: 01-10-2020 End: 10-12-2020 take 1 puff(s) by inhalation every twenty-four hours Tiotropium Patterson (Spiriva Respimat) 2.5 mcg/actuation mist Discontinued 2 PUFF INHALATION Q24H July 09, 2020 3:40pm October 12, 2020 12:07pm administer at approximately the same time(s) each day Start: 05-25-2019 End: 01-10-2020 take 2.5 ug by inhalation every twenty-four hours Tiotropium Patterson (Spiriva Respimat) 2.5 mcg/actuation mist Discontinued 2 NMA INHALATION Q24H 03 07May 25, 2019 8:41am January 10, 2020 12:47pm administer at approximately the same time(s) each day Start: 05-25-2019 End: 01-10-2020 Start: 05-25-2019 End: 01-10-2020 take 2.5 ug by inhalation every twenty-four hours Tiotropium Patterson (Spiriva Respimat) 2.5 mcg/actuation mist Discontinued 2 NMA INHALATION Q24H May 25, 2019 8:41am January 10, 2020 12:47pm administer at approximately the same time(s) each day Start: 05-25-2019 End: 01-10-2020 take 1 puff(s) by inhalation every twenty-four hours Tiotropium Patterson (Spiriva Respimat) 2.5 mcg/actuation mist Discontinued 2 PUFF INHALATION Q24H May 25, 2019 7:41am January 10, 2020 11:47am administer at approximately the same time(s) each day Start: 05-25-2019 End: 01-10-2020 take 1 puff(s) by inhalation every twenty-four hours Tiotropium Patterson (Spiriva Respimat) 2.5 mcg/actuation mist Discontinued 2 PUFF INHALATION Q24H May 25, 2019 8:41am January 10, 2020 12:47pm administer at approximately the same time(s) each day Start: 09-21-2018 End: 05-25-2019 take 2.5 ug by inhalation every twenty-four hours Tiotropium Patterson (Spiriva Respimat) 2.5 mcg/actuation mist Discontinued 2 NMA INHALATION Q24H 03 07September 21, 2018 1:57pm May 25, 2019 8:41am administer at approximately the same time(s) each day Start: 09-21-2018 End: 05-25-2019 Start: 09-21-2018 End: 05-25-2019 take 2.5 ug by inhalation every twenty-four hours Tiotropium Patterson (Spiriva Respimat) 2.5 mcg/actuation mist Discontinued 2 NMA INHALATION Q24H September 21, 2018 1:57pm May 25, 2019 8:41am administer at approximately the same time(s) each day Start: 09-21-2018 End: 05-25-2019 take 1 puff(s) by inhalation every twenty-four hours Tiotropium Patterson (Spiriva Respimat) 2.5 mcg/actuation mist Discontinued 2 PUFF INHALATION Q24H September 21, 2018 12:57pm May 25, 2019 7:41am administer at approximately the same time(s) each day Start: 09-21-2018 End: 05-25-2019 take 1 puff(s) by inhalation every twenty-four hours Tiotropium Patterson (Spiriva Respimat) 2.5 mcg/actuation mist Discontinued 2 PUFF INHALATION Q24H September 21, 2018 1:57pm May 25, 2019 8:41am administer at approximately the same time(s) each day Start: 02-03-2018 End: 09-21-2018 take 2.5 ug by inhalation every twenty-four hours Tiotropium Patterson (Spiriva Respimat) 2.5 mcg/actuation mist Discontinued 2 NMA INHALATION Q24H 03 07February 03, 2018 3:25pm September 21, 2018 1:58pm administer at approximately the same time(s) each day Start: 02-03-2018 End: 09-21-2018 Start: 02-03-2018 End: 09-21-2018 take 2.5 ug by inhalation every twenty-four hours Tiotropium Patterson (Spiriva Respimat) 2.5 mcg/actuation mist Discontinued 2 NMA INHALATION Q24H February 03, 2018 3:25pm September 21, 2018 1:58pm administer at approximately the same time(s) each day Start: 02-03-2018 End: 09-21-2018 take 1 puff(s) by inhalation every twenty-four hours Tiotropium Patterson (Spiriva Respimat) 2.5 mcg/actuation mist Discontinued 2 PUFF INHALATION Q24H 1 February 03, 2018 2:25pm September 21, 2018 12:58pm administer at approximately the same time(s) each day Start: 02-03-2018 End: 09-21-2018 take 1 puff(s) by inhalation every twenty-four hours Tiotropium Patterson (Spiriva Respimat) 2.5 mcg/actuation mist Discontinued 2 [...] 04/09/2017 11/16/2022 Discontinued Start: 04-08-2017 End: 02-03-2018 take 2.5 ug by inhalation every twenty-four hours Tiotropium Patterson (Spiriva Respimat) 2.5 mcg/actuation mist Discontinued 2 NMA INHALATION Q24H 03 07April 08, 2017 1:00am February 03, 2018 3:25pm administer at approximately the same time(s) each day Start: 04-08-2017 End: 02-03-2018 Start: 04-08-2017 End: 02-03-2018 take 2.5 ug by inhalation every twenty-four hours Tiotropium Patterson (Spiriva Respimat) 2.5 mcg/actuation mist Discontinued 2 NMA INHALATION Q24H April 08, 2017 1:00am February 03, 2018 3:25pm administer at approximately the same time(s) each day Start: 04-08-2017 End: 02-03-2018 take 1 puff(s) by inhalation every twenty-four hours Tiotropium Patterson (Spiriva Respimat) 2.5 mcg/actuation mist Discontinued 2 PUFF INHALATION Q24H April 08, 2017 12:00am February 03, 2018 2:25pm administer at approximately the same time(s) each day Start: 04-08-2017 End: 02-03-2018 take 1 puff(s) by inhalation every twenty-four hours Tiotropium Patterson (Spiriva Respimat) 2.5 mcg/actuation mist Discontinued 2 PUFF INHALATION Q24H 1 April 08, 2017 1:00am February 03, 2018 [...] Antibacterial Start: 05-24-2024 End: 06-05-2024 Start: 05-24-2024 End: 06-05-2024 Amoxicillin-Pot Clavulanate 875-125 mg tablet Discontinued 1 {tbl} PO TWICE A DAY 10 May 24, 2024 12:00am June 05, 2024 11:39am Start: 12-08-2023 End: 12-15-2023 amoxicillin-clavulanate pota ssium (AUGMENTIN) 875-125 mg per tablet Take 1 tablet by mouth two times a day for 7 days. FOR 7 DAYS. 14 tablet 12/08/2023 12/15/2023 Discontinued (Course of therapy completed) Start: 09-30-2023 End: 10-17-2023 Start: 09-30-2023 End: 10-17-2023 Amoxicillin-Pot Clavulanate 875-125 mg tablet Discontinued 1 {tbl} PO TWICE A DAY 10 September 30, 2023 12:00am October 17, 2023 11:55am Start: 08-17-2020 End: 02-07-2021 Start: 08-17-2020 End: 02-07-2021 Amoxicillin-Pot Clavulanate (Augmentin) 875-125 mg tablet Discontinued 1 {tbl} PO TWICE A DAY 20 August 17, 2020 12:00am February 07, 2021 11:40am Start: 07-24-2020 End: 08-10-2020 Start: 07-24-2020 End: 08-10-2020 Amoxicillin-Pot Clavulanate (Augmentin) 875-125 mg tablet Discontinued 1 {tbl} PO TWICE A DAY 20 July 24, 2020 12:00am August 10, 2020 1:18pm Start: 10-16-2017 End: 11-24-2017 Start: 10-16-2017 End: 11-24-2017 Amoxicillin-Pot Clavulanate (Augmentin) 875-125 mg tablet Discontinued 1 {tbl} PO TWICE A DAY 6 0 October 30, 2017 2:01pm November 24, 2017 10:13am azithromycin 250 mg oral tab let (20 sources) Macrolide Antimicrobial Start: 07-12-2020 End: 08-01-2020 Start: 08-27-2017 End: 09-11-2017 bisacodyl 10 mg rectal suppository (1 source) Stimulant Laxative Start: 02-24-2020 End: 02-24-2020 bisacodyl (DULCOLAX) suppository 10 mg Budesonide-Formoterol (20 sources) Corticosteroid, beta2-Adrenergic Agonist Start: 11-19-2021 End: 04-14-2022 Budesonide-Formoterol (Symbicort) 160-4.5 mcg/actuation HFA aerosol inhaler Discontinued 2 NMA INHALATION TWICE A DAY 10.2 6 November 19, 2021 3:26pm April 14, 2022 10:57am Start: 11-19-2021 End: 04-14-2022 Start: 11-19-2021 End: [...] 19, 2021 3:26pm Start: 03-29-2021 End: 11-19-2021 Budesonide-Formoterol (Symbi guadalupe) [...] 0 02/10/2021 Active Start: 02-07-2021 End: 03-29-2021 Budesonide-Formoterol (Symbi guadalupe) 160-4.5 mcg/actuation HFA aerosol inhaler Discontinued 2 NMA INHALATION TWICE A DAY 10.2 February 07, 2021 1:00am March 29, 2021 4:13pm Start: 02-07-2021 End: 03-29-2021 Start: 02-07-2021 End: [...] 500 mg PO EVERY 6 HOURS 40 0 January 25, 2022 1:00am February 05, 2022 11:51am Start: 01-21-2020 End: 01-24-2020 Comment on above: Take 1 capsule by mo [facility] three times daily. clopidogrel 75 mg oral tablet (20 sources) [id number] Platelet Inhibitor Start: 04-19-19 End: 05-28-19 Comment on above: Take 1 tablet by [facility] once daily. cycloSPORINE 0.5 mg/ml ophthalmic suspension (17 sources) Calcineurin Inhibitor Immunosuppressant Start: 03-18-19 End: 07-02-19 take 1 drop(s) into the eye(s) twice daily RESTASIS 0.05 % ophthalmic emulsion Use 1 Drop in both eyes two times a day. 03/18/2024 07/01/2024 Discontinued (Course of therapy completed) Cyclosporine (Restasis) 0.05 % dropperette (4 sources) Start: 05-23-19 End: 06-04-19 Cyclosporine (Restasis) 0.05 % dropperette Discontinued 1 NMA OPHTHALMIC TWICE A DAY May 22, 2024 12:00am June 03, 2024 4:59pm Start: 05-22-2024 Cyclosporine ( Restasis) 0.05 % dropperette Active 1 NMA OPHTHALMIC TWICE A DAY May 22, 2024 12:00am enteric contrast (will be provided with radiology test) (2 sources) Start: 11-19-2021 End: 11-20-2021 enteric contrast (will be provided with radiology [...] 10-17-2023 fluorometholone 1 mg/ml opht halmic suspension (15 sources) Corticosteroid Start: 02-21-2024 End: 05-22-2024 fluticasone propionate 0.05 mg/actuat metered dose nasal spray (20 sources) Corticosteroid Start: 08-27-2017 End: 05-26-2018 Start: 08-27-2017 End: 05-26-2018 Fluticasone Propionate 50 mc g/actuation spray,suspension Discontinued 2 NMA INTRANASAL DAILY 16 August 27, 2017 12:00am May 26, 2018 9:19am Start: 08-27-2017 End: 05-26-2018 Fluticasone Propionate Disco ntinued 2 SPRAY INTRANASAL DAILY August 27, 2017 12:00am May 26, 2018 9:19am Hrgqredzkxr-Dwfgibujt-Mafest er (19 sources) Anticholinergic, Corticosteroid, beta2-Adrenergic Agonist Start: 09-28-2023 End: 10-05-2023 Nwdcduextzj-Ybcroczix-Feewrx er (Trelegy Ellipta) 100-62.5-25 mcg blister with device Discontinued 1 NMA INHALATION DAILY September 28, 2023 12:00am October 05, 2023 6:40pm breathing Start: 09-28-2023 End: 10-05-2023 Start: 09-28-2023 End: 10-05-2023 Ttgfafaitom-Yfewkgjhi-Idnnys er (Trelegy Ellipta) 100-62.5-25 mcg blister with device Discontinued 1 NMA INHALATION DAILY September 28, 2023 12:00am October 05, 2023 6:40pm Start: 09-16-2023 End: 09-21-2023 take 1 puff(s) by inhalation once daily qymapjrpzpy-ciqdlnnch-elyfdliu (TRELEGY ELLIPTA) 100-62.5-25 mcg inhalation powder Indications: [...] Discontinued 2 NMA INHALATION TWICE A DAY 13 5 January 14, 2021 3:27pm February 07, 2021 12:07pm copd Start: 07-28-2017 End: 02-07-2021 take 1 puff(s) by inhalation twice daily Mometasone-Formoterol (Dulera) 200-5 mcg/actuation HFA aerosol inhaler Discontinued 2 PUFF INHALATION TWICE A DAY January 14, 2021 3:27pm February 07, 2021 12:07pm Comment on above: Take 2 Puffs by mout h twice daily. furosemide 20 mg oral tablet (20 sources) Loop Diuretic Start: 10-17-2023 End: 06-05-2024 gabapentin 100 mg oral capsule (20 sources) Anti-epileptic Agent Start: 05-28-2021 End: 04-30-2022 take 1 capsule by mouth three times daily gabapentin (NEURONTIN) 100 mg capsule Take 1 capsule by mouth three times daily for 90 days. 90 capsule 2 05/28/2021 04/30/2022 Discontinued Start: 02-20-2020 End: 02-20-2020 gabapentin (NEURONTIN) capsu le 100 mg Comment on above: Take 1 capsule by mo [facility] three times daily for 90 days. 500 [...] Discontinued 1 {tbl} PO Q12H 14 7 0 March 27, 2023 1:00am May 28, 2023 [...] in sodium chloride 0.9 % 30 mL SENIOR SERVICE AIDE (1 source) Start: 02-20-2020 End: 02-25-2020 HYDROmorphone (DILAUDID) 30 mg in sodium chloride 0.9 % 30 mL SENIOR SERVICE AIDE 10 ml iron sucrose 20 mg/ml injection [...] 200 mg, INTRAVENOUS, ONCE, 1 dose, On Thu06/21/24 at 1330, Please conduct a 30 minute [...] needed for shortness of breath or wheezing 14 01July 25, 2022 12:00am May 28, 2023 3:50pm Start: 07-25-2022 End: 05-28-2023 Levalbuterol Tartrate Discon tinued 2 INH INHALATION Q4H 15 July 25, 2022 12:00am May 28, 2023 [...] tablet Discontinued 750 mg PO Q24H 4 4 0 September 12, 2020 12:00am September 15, 2020 12:00am September 16, 2020 12:01am Start: 08-31-2020 End: 09-10-2020 Start: 08-31-2020 End: 09-10-2020 take 1 tablet by mouth every twenty-four hours Levofloxacin 750 mg tablet Discontinued 750 mg PO Q24H 10 10 0 August 31, 2020 12:00am September 09, 2020 12:00am September 10, 2020 12:01am Start: 08-01-2020 End: 08-08-2020 Start: 08-01-2020 End: 08-08-2020 take 1 tablet by mouth every twenty-four hours Levofloxacin 750 mg tablet Discontinued 750 mg PO Q24H 7 7 0 August 01, 2020 12:00am August 07, 2020 12:00am August 08, 2020 12:01am Start: 05-10-2018 End: 10-05-2018 Start: 03-05-2018 End: 03-12-2018 take 1 tablet by mouth every twenty-four hours Levofloxacin (Levaquin) 750 mg tablet Discontinued 750 mg PO Q24H 7 7 0 March 05, 2018 1:00am March 11, 2018 1:00am March 12, 2018 1:11am Start: 01-29-2018 End: 02-03-2018 Start: 01-29-2018 End: 02-03-2018 take 1 tablet by mouth every twenty-four hours Levofloxacin (Levaquin) 500 mg tablet Discontinued 500 mg PO Q24H 5 5 0 January 29, 2018 1:00am February 02, 2018 1:00am February 03, 2018 1:06am Start: 12-15-2017 End: 04-06-2018 lidocaine 0.04 mg/mg medicated patch (20 sources) Antiarrhythmic, Amide Local Anesthetic Start: 03-25-2023 End: 09-28-2023 Start: 02-24-2020 lidocaine 4 % external patch 2 patch LORazepam 1 mg oral tablet (20 sources) Benzodiazepine Start: 07-09-2020 End: 07-13-2024 Start: 04-06-2020 take 0.5 mg by mouth three times daily as needed for anxiety 0.5 mg, Oral, 3 TIMES DAILY PRN, Anxiety, Starting Thu04/06/20 at 1930 Start: 02-20-2020 take 0.5 mg by mouth twice daily as needed for anxiety 0.5 mg, Oral, 2 TIMES DAILY PRN, Anxiety, Starting 02/20/20 at 1438 Start: 01-24-2020 LORazepam (ATI VAN) 1 MG tablet 3 times daily as needed. 0 01/24/2020 Active take 1 tablet by raymond every eight hours as needed for anxiety LORazepam (Ativan) 0.5 MG tablet Take 0.5 mg by mouth every 8 hours as needed for anxiety. 0 Active Comment on above: Take 1 tablet by raymond three times daily for 90 days. Take 1 tablet by raymond three times a day for 90 days. Mometasone-Formoterol (Dulera) 200-5 mcg/actuation HFA aerosol inhaler (12 sources) Start: 04-14-2022 End: 04-14-2022 Mometasone-Formoterol (Dulera) 200-5 mcg/actuation HFA aerosol inhaler Discontinued 2 NMA INHALATION TWICE A DAY 13 April 14, 2022 1:00am April 14, 2022 2:31pm Start: 04-14-2022 End: 04-14-2022 Mometasone-Formoterol (Duler a) [...] Receptor Antagonist Start: 09-11-2017 End: 11-24-2017 nystatin 918061 unt/ml oral suspension (20 sources) Polyene Antifungal Start: 08-12-2017 End: 08-27-2017 Start: 08-12-2017 End: 08-27-2017 Nystatin 100,000 unit/mL kavon pension Discontinued 5 mL MUCOUS MEM THREE TIMES A DAY 250 1 August 12, 2017 12:00am August 27, 2017 1:31pm swish and swallow 5 cc three times per day for 10 days Start: 08-12-2017 End: 08-27-2017 Nystatin Discontinued 5 ML M UCOUS MEM THREE TIMES A DAY 250 August [...] 2020 11:00pm Start: 04-06-2020 17 g, Oral, KARYN JONES, First dose on Thu04/06/20 at 2000 Start: 02-23-2020 End: 03-31-2020 take 17 g [...] mg tablet Discontinued 10 mg PO DAILY May 22, 2024 12:00am June 03, 2024 5:06pm On Hold: until taper completed Start: 10-23-2023 End: 02-22-2024 Start: 10-23-2023 End: 02-22-2024 Prednisone 10 mg tablet Disc ontinued 0 .ROUTE .COMPLEX 18 9 0 October 23, 2023 12:00am February 22, 2024 5:39pm sob 10 mg orally ;3 tablets daily x 3 days, 2 tablets daily x 3 days, 1 tablet daily x 3 days, then stop. Start: 09-30-2023 End: 10-23-2023 Start: 09-30-2023 End: 10-17-2023 take 2 tablets by mouth once daily Prednisone 20 mg tablet Discontinued 40 mg PO DAILY 10 0 September 30, 2023 12:00am October 17, 2023 12:54pm Start: 09-28-2023 End: 10-06-2023 Start: 2023 End: 01-16-2024 take 1 tablet by mouth once daily Prednisone 10 mg tablet Discontinued 10 mg PO DAILY September 28, 2023 12:00am October 06, 2023 3:43pm inflammation Start: 08-31-2020 End: 05-28-2023 take 1 tablet by mouth once daily Prednisone 10 mg tablet Discontinued 10 mg PO daily 90 3 January 15, 2022 11:13am May 28, 2023 3:50pm Start: 08-24-2020 End: 05-28-2023 Start: 07-12-2020 End: 08-10-2020 Start: 07-12-2020 End: 08-10-2020 take 2 tablets by mouth once daily Prednisone 20 mg tablet Discontinued 40 mg PO DAILY 10 July 12, 2020 12:00am August 10, 2020 1:18pm Start: 07-12-2020 End: 08-10-2020 take 40 mg by mouth once daily Prednisone Discontinued 40 MG PO DAILY 10 July 12, 2020 12:00am August 10, 2020 1:18pm [...] tablet Discontinued 40 mg PO DAILY 10 December 15, 2017 12:00am May 13, 2018 [...] malignant neoplasm of bronchus and lung] Onset: 5 10-13-2022 Episodic Cancer of prostate (20 sources) Malignant tumor of prostate; Translations: [Malignant neoplasm of prostate] Onset: 5 01-31-2015 Chronic Cancer; other respiratory and intrathoracic (1 source) Malignant neoplasm of lower respiratory tract; 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 Cardiac dysrhythmias (16 sources) Multiple premature ventricular complexes; Translations: [Ventricular [...] Onset: 3 Chronic Congestive heart failure; nonhypertensive (15 sources) Heart failure with normal ejection fraction; Translations: [Acute diastolic (congestive) heart failure] 10-17-2023 Chronic Coronary atherosclerosis and other heart disease (20 sources) Coronary atherosclerosis; Translations: [Atherosclerotic heart disease of [place] coronary artery without angina pectoris] Onset: 7 [...] unspecified] 10-17-2023 Episodic Deficiency and other anemia (3 sources) Chronic anemia; Translations: [Anemia, unspecified] 09-17-2024 Episodic Deficiency and other anemia (2 sources) [...] unspecified, with hemorrhage] Onset: 5 10-17-2023 Chronic Gastrointestinal hemorrhage (20 sources) Gastrointestinal hemorrhage; Translations: [Gastrointestinal hemorrhage, unspecified] Onset: 5 10-25-2023 Episodic Genitourinary symptoms and ill-defined conditions (20 sources) Retention of urine; Translations: [Retention of urine, unspecified] Onset: 0 02-24-2020 Episodic Hyperplasia of prostate (20 sources) Benign prostatic hypertrophy with outflow obstruction; Translations: [Benign prostatic hyperplasia with lower urinary tract symptoms] Onset: 7 11-20-2016 Chronic Malaise and fatigue (20 sources) Asthenia; Translations: [Other malaise] Onset: 5 10-17-2023 Episodic Mood disorders (20 sources) Depressive disorder; Translations: [Depression, unspecified depression type] Onset: 4 Chronic Mood disorders (3 sources) Mood disorders; Translations: [Depression, unspecified depression type] Onset: 5 Nausea and vomiting (2 sources) Nausea; Translations: [Nausea] Onset: 5 07-01-2024 Episodic Noninfectious gastroenteritis (15 sources) Enteritis of small intestine; Translations: [Noninfective gastroenteritis and colitis, unspecified] Onset: 5 06-30-2024 Episodic Nonspecific chest pain (20 sources) Chest wall pain; Translations: [Other chest pain] 11-24-2022 Episodic Other aftercare (4 sources) Post-discharge follow-up; Translations: [Encounter for follow-up examination after completed treatment for conditions other than malignant neoplasm] 04-14-2023 Episodic Other aftercare (1 source) Long-term current use of drug therapy; Translations: [Other penitentiary (current) drug therapy] 03-23-2024 Episodic Other aftercare (3 sources) Long-term current use of anticoagulant; Translations: [business support assistant (current) use of anticoagulants] 09-17-2024 Episodic Other circulatory disease (20 sources) Peripheral vascular disease; Translations: [Other specified peripheral vascular diseases] 06-01-2024 Chronic Other circulatory disease (2 sources) Other specified peripheral vascular diseases; Translations: [Other specified peripheral vascular diseases] Onset: Chronic Other circulatory disease (2 sources) Abnormal [...] circulatory system] 04-03-2024 Episodic Other circulatory disease (11 sources) Syncope due to orthostatic hypotension; Translations: [...] (HCC)] Onset: 5 Chronic Other gastrointestinal disorders (15 sources) Occult blood in stools; Translations: [Other fecal abnormalities] 10-08-2023 Episodic Other gastrointestinal disorders (20 sources) Disorder of gastrointestinal tract; Translations: [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] 06-08-2024 Episodic Other gastrointestinal disorders (3 sources) History of gastrointestinal bleed; Translations: [Personal history of other diseases of the digestive system] 09-17-2024 Episodic Other gastrointestinal disorders (1 source) 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; Translations: [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] Onset: Episodic Other lower respiratory disease (20 sources) [...] [Hypoxemia] 11-07-2022 Episodic Other lower respiratory disease (20 sources) Lesion of lung; Translations: [Other disorders of lung] 11-24-2022 Episodic Other lower respiratory disease (20 sources) Hemoptysis; Translations: [Hemoptysis] 03-25-2023 Episodic Other lower respiratory disease (20 sources) [place] of lung; Translations: [Other disorders of lung] 03-25-2023 Episodic Other lower respiratory disease (3 sources) Multiple nodules of lung; Translations: [Other nonspecific abnormal finding of lung field] 08-24-2023 Episodic Other lower respiratory disease (15 sources) Single lobe lung infiltrate; Translations: [Other nonspecific abnormal finding of lung field] 05-22-2024 Episodic Other lower respiratory disease (20 sources) Hypoxia; Translations: [Hypoxemia] 02-19-2024 Episodic Other lower respiratory disease (15 sources) Acute respiratory distress; Translations: [Acute respiratory distress] 05-22-2024 Episodic Other lower respiratory disease (2 sources) Dyspnea, unspecified; Translations: [Dyspnea, unspecified] Onset: Episodic Other nervous system disorders (1 source) Chronic post-thoracotomy pain syndrome; 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] Chronic Other screening for suspected conditions (not mental disorders or infectious disease) (20 sources) CT of chest abnormal; Translations: [Abnormal findings on diagnostic imaging of other specified body structures] 08-13-2020 Chronic Other screening for suspected conditions (not mental disorders or infectious disease) (2 sources) Patient encounter status; Translations: [Encounter for screening for other disorder] Episodic Other skin disorders (2 sources) Lesion of skin of foot; Translations: [Changes in skin texture] Episodic Other upper respiratory disease (15 sources) Acute bronchospasm; Translations: [Acute bronchospasm] 05-22-2024 Episodic Peripheral and visceral atherosclerosis (20 sources) Peripheral vascular disease, unspecified; Translations: [Peripheral vascular disease, unspecified] Onset: 3 Resolved: Chronic Phlebitis; thrombophlebitis and thromboembolism (1 source) [...] 04-03-2017 Chronic Respiratory failure; insufficiency; arrest (adult) (15 sources) Acute respiratory failure; Translations: [Acute respiratory failure with hypoxia] 10-17-2023 Episodic Skin and subcutaneous tissue infections (20 sources) Cellulitis; Translations: [Cellulitis, unspecified] 02-02-2022 Episodic Substance-related disorders (20 sources) Tobacco dependence in remission; Translations: [Nicotine dependence, unspecified, in remission] Chronic Unclassified (1 source) Unknown / UNK(Unknown) Onset: 8 Unclassified (2 sources) Greene was unable to reach the office please call and schedule your appointment. Unclassified (1 source) Abdominal aortic aneurysm (AAA) without rupture, unspecified part; Translations: [Abdominal aortic aneurysm (AAA) without rupture, unspecified part] Onset: 9 Unclassified (1 source) Follow-up with your doctor to have your blood count rechecked to make sure it is not dropping. 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, initial encounter] Onset: 4 Viral infection (15 sources) Disease caused by 2019-nCoV; Translations: [COVID-19] 10-08-2023 Episodic Past or Other Problems Problem Classification Problem Date Documented Da te Episodic/Chronic Acute posthemorrhagic anemia (20 sources) Acute posthemorrhagic anemia; Translations: [Acute posthemorrhagic anemia] Onset: 06-05-2024 06-03-2024 Episodic Cancer of prostate (20 sources) History of malignant neoplasm of prostate; Translations: [Personal history of malignant neoplasm of prostate] Onset: 03-21-2024 03-21-2024 Episodic Coronary atherosclerosis and other heart disease (1 source) Presence of aortocoronary bypass graft; 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] Onset: 03-18-2019 Episodic Diabetes mellitus with complications (20 sources) Type 2 diabetes mellitus with ulcer; Translations: [Type 2 diabetes mellitus with foot ulcer] Onset: 04-30-2022 Resolved: 10-13-2022 Chronic Immunizations and screening for infectious disease (3 sources) Needs influenza immunization; Translations: [Encounter for immunization] Onset: 12-23-2023 12-19-2022 Episodic Neoplasms of unspecified nature or uncertain behavior (20 sources) Neoplasm of lung ; Translations: [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] Onset: 11-27-2023 03-25-2023 Episodic Other aftercare (1 source) 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; Translations: [Encounter for long-term (current) use of medications] Onset: 04-26-2024 Episodic Other aftercare (1 source) Encounter for follow-up examination after completed treatment for conditions other than malignant neoplasm; Translations: [Hospital discharge follow-up] Onset: 12-08-2023 Episodic Other diseases of veins and lymphatics (1 source) Venous insufficiency (chronic) (peripheral); Translations: [Venous insufficiency] Onset: 02-04-2024 Episodic Other gastrointestinal disorders (1 source) Other fecal abnormalities; Translations: [Other fecal abnormalities] Onset: 11-27-2023 Episodic Other lower respiratory disease (14 sources) Solitary pulmonary nodule; Translations: [Nodule of lung] Onset: 02-20-2020 02-20-2020 Episodic Other lower respiratory disease (6 sources) Dyspnea; Translations: [Shortness of breath] Onset: 04-06-2020 04-06-2020 Episodic Other lower respiratory disease (6 sources) Hemoptysis; Translations: [Hemoptysis, unspecified] Onset: 11-27-2023 03-25-2023 Episodic Other lower respiratory disease (6 sources) Other disorders of lung; Translations: [Other diseases of lung, not elsewhere classified] Onset: 11-27-2023 03-25-2023 Episodic Other lower respiratory disease (2 sources) Shortness of breath; Translations: [SOB (shortness of breath)] Onset: 03-03-2024 Episodic Other lower respiratory disease (1 source) Other nonspecific abnormal finding of lung field; Translations: [Lung nodules] Onset: 11-13-2023 Episodic Other lower respiratory disease (1 source) Hypoxemia; Translations: [Hypoxemia] Onset: 02-24-2024 Episodic Other lower respiratory disease (1 source) Tachypnea, not elsewhere classified; Translations: [Tachypnea, not elsewhere classified] Onset: 11-27-2023 Episodic Pneumonia (except that caused by tuberculosis or sexually transmitted disease) (20 sources) Pneumonia; Translations: [Pneumonia, unspecified organism] Onset: 10-26-2023 12-08-2023 Episodic Pulmonary heart disease (20 sources) Pulmonary embolism; Translations: [Other pulmonary embolism without acute cor pulmonale] Onset: 11-27-2023 03-25-2023 Episodic Residual codes; unclassified (1 source) Personal history of other specified conditions; Translations: [Personal history of other specified conditions] Onset: 11-27-2023 Episodic Screening and history of mental health and substance abuse codes (20 sources) Ex-smoker; Translations: [Personal history of nicotine dependence] Onset: 04-30-2022 04-30-2022 Episodic Septicemia (except in labor) (1 source) Sepsis, unspecified organism; Translations: [Sepsis, unspecified organism] Onset: 11-27-2023 Episodic Unclassified (1 source) Established Patient Onset: 06-26-2017 Results Test Name Value Interpretation Reference Range Facility Gastroenterology Visit Repor ton 09-29-2024 Gastroenterology Visit Report Normal [facility] Arterial study reportOrdered By: Misha Blunt on 09-27-2024 Noninvasive arteriosclerosis study report [facility] Work Phone: Lower Ext Art Exam w/o Exerc ryan 09-26-2024 Lower Ext Art Exam w/o Exercis Normal [facility] Venous Duplex US - Martita Extre mon 09-26-2024 Venous Duplex US - Martita Extrem Normal [facility] Venous duplex ultrasound rep ortOrdered By: Misha Blunt on 09-26-[address] [facility] Work Phone: Culture, Anaerobic Any Sourc mariah 09-18-2024 CUAN No anaerobic bacteri a isolated. Normal [facility] Comment on above: Performed By: #### M 100.2000, M100.4001, M100.3000 ####[facility] [address] [place], [address] Anion gap in Serum or Plasma Ordered By: Aaron Hurst on 09-17-2024 Anion gap [Moles/Vol] 12 mmol/L - [facility] BUN/creatinine ratioOrdered By: Aaron Hurst on 09-17-2024 Urea nitrogen/Creatinine [Mass ratio] 26.9 mg/mg High 12-19 [facility] Basic Metabolic Profile (BMP )on 09-17-2024 BUN/CRE 26.9 RATIO High 12-19 [facility] Comment on above: Performed By: #### L 500.2500, L100.0500 ####[facility] [address] [place], [address] Calcium [Mass/Vol] 8.7 mg/dL Normal 7.6-11.0 [facility] Comment on above: Performed By: #### L 500.2500, L100.0500 ####[facility] [address] [place], [address] Chloride [Moles/Vol] 105 mmol/L Normal 98-108 [facility] Comment on above: Performed By: #### L 500.2500, L100.0500 ####[facility] [address] [place], [address] CO2 [Moles/Vol] 22.4 mmol/L Normal 21.0-32.0 [facility] Comment on above: Performed By: #### L 500.2500, L100.0500 ####[facility] [address] [place], [address] Creatinine [Mass/Vol] 0.70 mg/dL Normal 0.70-1.20 [facility] Comment on above: Performed By: #### L 500.2500, L100.0500 ####[facility] [address] [place], [address] ECRCL 73.61 ml/min Normal 50-250 [facility] Comment on above: Performed By: #### L 500.2500, L100.0500 ####[facility] [address] [place], [address] GAP 12 Normal 5-15 [facility] Comment on above: Performed By: #### L 500.2500, L100.0500 ####[facility] [address] [place], [address] GFR/1.73 sq M.predicted among non-blacks MDRD (S/P/Bld) [Vol rate/Area] 92 mL/min/{1.73_m2} Normal >60 [facility] Comment on above: Result Comment: mL/m in/1.73m2 CKD-EPI Creatinine Equation (2020) Performed By: #### L 500.2500, L100.0500 ####[facility] [address] [place], [address] Glucose [Mass/Vol] 114 mg/dL High 70-99 [facility] Comment on above: Performed By: #### L 500.2500, L100.0500 ####[facility] [address] [place], [address] Potassium [Moles/Vol] 4.1 mmol/L Normal 3.3-5.1 [facility] Comment on above: Result Comment: Hemo lysis present, Results??could be affected.?? Performed By: #### L 500.2500, L100.0500 ####[facility] [address] [place], [address] Sodium [Moles/Vol] 139 mmol/L Normal 133-145 [facility] Comment on above: Performed By: #### L 500.2500, L100.0500 ####[facility] [address] [place], [address] Urea nitrogen [Mass/Vol] 19 mg/dL Normal 4-19 [facility] Comment on above: Performed By: #### L 500.2500, L100.0500 ####[facility] [address] [place], [address] CBC-Complete Blood Cnt No Di ffon 09-17-2024 Erythrocyte distribution width (RBC) [Ratio] 16.3 % High 11.6-14.6 [facility] Comment on above: Performed By: #### L 500.2500, L100.0500 ####[facility] [address] [place], [address] Hematocrit (Bld) [Volume fraction] 32.2 % Low 40-54 [facility] Comment on above: Performed By: #### L 500.2500, L100.0500 ####[facility] [address] [place], [address] Hemoglobin (Bld) [Mass/Vol] 9.8 g/dL Low 13.0-16.5 [facility] Comment on above: Performed By: #### L 500.2500, L100.0500 ####[facility] [address] [place], [address] MCH (RBC) [Entitic mass] 27.0 pg Normal 27.0-32.0 [facility] Comment on above: Performed By: #### L 500.2500, L100.0500 ####[facility] [address] [place], [address] MCHC (RBC) [Mass/Vol] 30.4 g/dL Low 32-36 [facility] Comment on above: Performed By: #### L 500.2500, L100.0500 ####[facility] [address] [place], [address] MCV (RBC) [Entitic vol] 88.7 fL Normal 80-94 [facility] Comment on above: Performed By: #### L 500.2500, L100.0500 ####[facility] [address] [place], [address] Platelet mean volume (Bld) [Entitic vol] 8.7 fL Normal 6.2-12.0 [facility] Comment on above: Performed By: #### L 500.2500, L100.0500 ####[facility] [address] [place], [address] Platelets (Bld) [#/Vol] 182 10*3/uL Normal 150-450 [facility] Comment on above: Performed By: #### L 500.2500, L100.0500 ####[facility] [address] [place], [address] RBC (Bld) [#/Vol] 3.63 10*6/uL Low 4.6-6.2 [facility] Comment on above: Performed By: #### L 500.2500, L100.0500 ####[facility] [address] [place], [address] RDW SD 53.1 fl High 35.1-43.9 [facility] Comment on above: Performed By: #### L 500.2500, L100.0500 ####[facility] [address] [place], [address] WBC (Bld) [#/Vol] 7.4 10*3/uL Normal 4.4-11.0 [facility] Comment on above: Performed By: #### L 500.2500, L100.0500 ####[facility] [address] [place], [address] Carbon dioxide, total [Moles /volume] in Central venous bloodOrdered By: Aaron Hurst on 09-17-2024 CO2 [Moles/Vol] 22.4 mmol/L 21.0-32.0 [facility] Chest PA and Lateralon 09-17 Chest PA and Lateral Normal [facility] Chloride assayOrdered By: Grupo Hurst on 09-17-2024 Chloride [Moles/Vol] 105 mmol/L 98-108 [facility] Emergency Department Summary on 09-17-2024 Emergency [address] Summary Normal [facility] Erythrocyte distribution wid th ratioOrdered By: Aaron Hurst on 09-17-2024 Erythrocyte distribution width (RBC) [Ratio] 16.3 % High 11.6-14.6 [facility] Erythrocyte distribution wid th standard deviationOrdered By: Aaron Hurst on 09-17-2024 Erythrocyte distribution width (RBC) [Ratio] 53.1 fl High 35.1-43.9 [facility] Glomerular filtration rate ( GFR) estimation/1.73 sq m using serum, plasma, or whole bOrdered By: Aaron Hurst on 09-17-2024 GFR/1.73 sq M.predicted among non-blacks MDRD (S/P/Bld) [Vol rate/Area] 92 mL/min/{1.73_m2} >60 [facility] Comment on above: mL/min/1.73m2 CKD-EP I Creatinine Equation (2020) Hematocrit Auto (Bld) [Volum e fraction]Ordered By: Aaron Hurst on 09-17-2024 Hematocrit (Bld) [Volume fraction] 32.2 % Low 40-54 [facility] Hemoglobin measurementOrdere d By: Aaron Hurst on 09-17-2024 Hemoglobin (Bld) [Mass/Vol] 9.8 g/dL Low 13.0-16.5 [facility] MCV (mean corpuscular volume ) determinationOrdered By: Aaron Hurst on 09-17-2024 MCV (RBC) [Entitic vol] 88.7 fL 80-94 [facility] Mean corpuscular hemoglobin (MCH) determinationOrdered By: Aaron Hurst on 09-17-2024 MCH (RBC) [Entitic mass] 27.0 pg 27.0-32.0 [facility] Mean corpuscular hemoglobin concentration (MCHC) determinationOrdered By: Aaron Hurst on 09-17-2024 MCHC (RBC) [Mass/Vol] 30.4 g/dL Low 32-36 [facility] Mean platelet volume determi nationOrdered By: Aaron Hurst on 09-17-2024 Platelet mean volume (Bld) [Entitic vol] 8.7 fL 6.2-12.0 [facility] Platelet countOrdered By: Grupo Hurst on 09-17-2024 Platelets (Bld) [#/Vol] 182 10*3/uL 150-450 [facility] Potassium measurement (mass/ volume)Ordered By: Aaron Hurst on 09-17-2024 Potassium (Unsp spec) [Mass/Vol] 4.1 mmol/L 3.3-5.1 [facility] Comment on above: Hemolysis present, R esults could be affected. RBC Auto (Bld) [#/Vol]Ordere d By: Aaron Hurst on 09-17-2024 RBC (Bld) [#/Vol] 3.63 10*6/uL Low 4.6-6.2 [facility] Serum creatinine measurement (mass/volume)Ordered By: Aaron Hurst on 09-17-2024 Creatinine [Mass/Vol] 0.70 mg/dL 0.70-1.20 [facility] Serum glucose measurement (m ass/volume)Ordered By: Aaron Hurst on 09-17-2024 Glucose [Mass/Vol] 114 mg/dL High 70-99 [facility] Serum or plasma calcium ry urement (mass/volume)Ordered By: Aaron Hurst on 09-17-2024 Calcium [Mass/Vol] 8.7 mg/dL 7.6-11.0 [facility] Serum or plasma urea nitroge n measurement (mass/volume)Ordered By: Aaron Hurst on 09-17-2024 Urea nitrogen [Mass/Vol] 19 mg/dL 4-19 [facility] Sodium levelOrdered By: Aaron Hurst on 09-17-2024 Sodium [Moles/Vol] 139 mmol/L 133-145 [facility] Type AND Screenon ABO and Rh group Nom (Bld) Blood group O Rh(D) negative Normal [facility] Comment on above: Order Comment: HGI Performed By: #### B TS ####[facility] [address] [facility] [place], [place], [id number] White blood cell (WBC) count Ordered By: Aaron Hurst on 09-17-2024 WBC (Bld) [#/Vol] 7.4 10*3/uL 4.4-11.0 [facility] Wound Cultureon 09-17-[address] [facility] Comment on above: Performed By: #### M 100.1999, M100.4001, M100.3000 ####[facility] [address] [place], [place], [id number] CNPNon 09-16-2024 CNPN Normal [facility] Gram Stainon 09-16-2024 GS Gram Stain 4+ Gram positive cocci Rare White Blood Cells No Epithelial cells Normal [facility] Comment on above: Performed By: #### M 100.1999, M100.4001, M100.3000 ####[facility] [address] [place], [address] Anaerobic cultureOrdered By: Rasta Mazariegos on 09-15-2024 Bacteria identified Anaer cx Nom (Unsp spec) No anaerobic bacteria isolated. [facility] Gram stainOrdered By: Wayne Mazariegos on 09-15-2024 Microscopic observation Gram stain Nom (Unsp spec) [facility] Ctr History AND Physic diogo 09-11-2024 Wound Ctr History & Physical Normal [facility] CT CHEST W IVCONon CT CHEST W IVCON Normal [facility] Creatinine + eGFR Pnl SerPlB ldon 09-09-2024 Creatinine and Glomerular filtration rate.predicted panel (S/P/Bld) 92 mL/min/1.73m??? Normal >=60 [facility] Comment on above: Order Comment: Speci men Type: BLOOD SPECIMENOrdering Facility: [facility] Address: [address] [place] [address] Result Comment: Karey mated Glomerular Filtration Rate [...] actual GFR. Performed By: #### 4 5066-8 ####[facility] [id number] [place] [address] [place] Creatinine and Glomerular fi ltration rate.predicted panel (S/P/Bld)on 09-09-2024 Creatinine [Mass/Vol] 0.70 mg/dL Low 0.73-1.22 [facility] Comment on above: Order Comment: Speci men Type: BLOOD SPECIMENOrdering Facility: [facility] Address: [address] [place] [address] Performed By: #### 4 5066-8 ####[facility] [id number] [place] [address] [place] CNPNon 09-08-2024 CNPN Normal [facility] CNOVon 08-31-2024 CNOV Normal [facility] Folate SerPl-mCncon 08-19-19 25 Folate [Mass/Vol] 12.1 ng/mL Normal >4.7 [facility] Comment on above: Order Comment: Speci men Type: BLOOD SPECIMENOrdering Facility: [facility] Address: [address] [place] [address] Performed By: #### 2 132-9, 2284-8 ####[facility] [id number] [place] [address] [place] HEAVY METALS SCRN BLon 08-18 ARSENIC, BLOOD <10.0 Normal <=12.0 [facility] Comment on above: Order Comment: Speci men Type: BLOOD SPECIMENOrdering Facility: [facility] Address: [address] [place] [address] Result Comment: INTE RPRETIVE INFORMATION: Arsenic, BloodElevated [...] arsenic in the diet and the environment. G99-tfbc urine arsenic is useful for the detection of chronicexposure.This test was developed and its performance characteristicsdetermined by [employer]. It has not been cleared orapproved by the [place] Food and Drug Administration. This test wasperformed in a CLIA certified laboratory and is intended forclinical purposes. Performed By: #### H EVMET ####[facility] [id number] [place] [address] LEAD <2.0 Normal <=4.9 [facility] Comment on above: Order Comment: Speci men Type: BLOOD SPECIMENOrdering Facility: [facility] Address: [address] [place] [address], [place] [address] Result Comment: INTE RPRETIVE INFORMATION: Lead, Blood [...] was developed and its performance characteristicsdetermined by [employer]. It has not been cleared orapproved by [...] are present. Performed By: #### H EVMET ####[facility] [id number] [place] [address] MERCURY <2.5 Normal <=10.0 [facility] Comment on above: Order Comment: Speci men Type: BLOOD SPECIMENOrdering Facility: [facility] Address: [address] [place] [address] Result Comment: INTE RPRETIVE INFORMATION: Mercury, BloodElevated [...] was developed and its performance characteristicsdetermined by [employer]. It has not been cleared orapproved by the [place] Food and Drug Administration. This test wasperformed in a CLIA certified laboratory and is intended forclinical purposes.Performed By: [employer] [place], [place] [address]Lstop[employer]ix Director: Rasta Mcdonald MD, PhDCLIA Number: [id number] Performed By: #### H EVMET ####[facility] [id number] [place] [address] VITAMIN B1 (THIAMINE), WHOLE BLOODon 08-18-2024 Thiamine (Bld) [Moles/Vol] 177.9 nmol/L Normal 84.3-213.3 [facility] Comment on above: Order Comment: Speci men Type: BLOOD SPECIMENOrdering Facility: [facility] Address: [address] [place] [address] Result Comment: This assay measures the concentration of thiamine diphosphate (TDP), the primary active form of vitamin B1. Approximately 90 percent of vitamin B1 present in whole blood is TDP. Thiamine and thiamine monophosphate, which comprise the remaining 10 percent, are not measured.This test was developed, and its performance characteristics determined by the [facility] Department of Pathology and Laboratory Medicine. It has not been cleared or approved by the FDA. The [facility] Department of Pathology and Laboratory Medicine is regulated under CLIA as qualified to perform high-complexity testing. This test is used for clinical purposes. It should not be regarded as investigational or for research. Performed By: #### B 1WB ####[facility] LABIA [id number] [place] [address] [place] Vit B12 SerPl-mCncon 025 Cobalamin (Vitamin B12) [Mass/Vol] 619 pg/mL Normal 232-1245 [facility] Comment on above: Order Comment: Speci men Type: BLOOD SPECIMENOrdering Facility: [facility] Address: [address] [place] [address] Performed By: #### 2 132-9, 2284-8 ####[facility] [id number] [place] [address] [place] CNOVon 08-01-2024 CNOV Normal [facility] MRI BRAIN WO/W IVCONon 07-21 MRI BRAIN WO/W IVCON Normal [facility] Culture, Anaerobic Any Sourc mariah 07-19-2024 CUAN LEFT FOOT ULCER No growth in [address] [facility] Comment on above: Performed By: #### M 100.4001, M100.3000, M100.2000 ####[facility] [address] [place], [address] CBC W Auto Differential pane l (Bld)on 07-18-2024 Basophils (Bld) [#/Vol] 0.04 10*3/uL [facility] Basophils/100 WBC (Bld) 0.6 % [facility] Differential cell count method Nom (Bld) Auto [facility] Eosinophils (Bld) [#/Vol] 0.31 10*3/uL [facility] Eosinophils/100 WBC (Bld) 4.5 % [facility] Erythrocyte distribution width (RBC) [Ratio] 17.9 % High 11.5 - 15.0 % [facility] Hematocrit (Bld) [Volume fraction] 34.5 % Low 39.0 - 51.0 % [facility] Hemoglobin (Bld) [Mass/Vol] 10.2 g/dL Low 13.0 - 17.0 g/dL [facility] Immature granulocytes (Bld) [#/Vol] [facility] Immature granulocytes/100 WBC (Bld) 0.1 % [facility] Interpretation and review of laboratory results Abnormal [facility] Lymphocytes (Bld) [#/Vol] 0.66 10*3/uL Low [facility] Lymphocytes/100 WBC (Bld) 9.6 % [facility] MCH (RBC) [Entitic mass] 27.6 pg 26.0 - 34.0 pg [facility] MCHC (RBC) [Mass/Vol] 29.6 g/dL Low 30.5 - 36.0 g/dL [facility] MCV (RBC) [Entitic vol] 93.5 fL 80.0 - 100.0 fL [facility] Monocytes (Bld) [#/Vol] 0.47 10*3/uL [facility] Monocytes/100 WBC (Bld) 6.8 % [facility] Neutrophils (Bld) [#/Vol] 5.38 10*3/uL [facility] Neutrophils/100 WBC (Bld) 78.4 % [facility] Nucleated RBC (Bld) [#/Vol] [facility] Nucleated RBC/100 WBC (Bld) [Ratio] 0 % /100 WBC [facility] Platelet mean volume (Bld) [Entitic vol] 8.8 fL Low 9.0 - 12.7 fL [facility] Platelets (Bld) [#/Vol] 266 10*3/uL [facility] Comment on above: No clot detected. RBC (Bld) [#/Vol] 3.69 10*6/uL Low 4.20 - 6.00 m/uL [facility] WBC (Bld) [#/Vol] 6.87 10*3/uL [facility] Basophils (Bld) [#/Vol] 0.04 10*3/uL Normal <0.11 [facility] Comment on above: Order Comment: Speci men Type: BLOOD SPECIMENOrdering Facility: [facility] Address: [address] [place] [address] Performed By: #### 5 7021-8, 63406-9 ####[facility] MILLTOWNCLIA [id number] [place] [address] [place] Basophils/100 WBC (Bld) 0.6 % Normal [facility] Comment on above: Order Comment: Speci men Type: BLOOD SPECIMENOrdering Facility: [facility] Address: [address] [place] [address] Performed By: #### 5 7021-8, 43204-8 ####[facility]PITALMARQUESLIA [id number] [place] [address] [place] Differential cell count method Nom (Bld) Auto Normal [facility] Comment on above: Order Comment: Speci men Type: BLOOD SPECIMENOrdering Facility: [facility] Address: [address] [place] [address] Performed By: #### 5 7021-8, 06115-5 ####[facility] HOSPITALLIA [id number] [place] [address] [place] Eosinophils (Bld) [#/Vol] 0.31 10*3/uL Normal <0.46 [facility] Comment on above: Order Comment: Speci men Type: BLOOD SPECIMENOrdering Facility: [facility] Address: [address] [place] [address] Performed By: #### 5 7021-8, 68139-7 ####[facility] MILLWNCLIA [id number] [place] [address] [place] Eosinophils/100 WBC (Bld) 4.5 % Normal [facility] Comment on above: Order Comment: Speci men Type: BLOOD SPECIMENOrdering Facility: [facility] Address: [address] [place] [address] Performed By: #### 5 7021-8, 52621-5 ####[facility] [id number] [place] [address] [place] Erythrocyte distribution width (RBC) [Ratio] 17.9 % High 11.5-15.0 [facility] Comment on above: Order Comment: Speci men Type: BLOOD SPECIMENOrdering Facility: [facility] Address: [address] [place] [address] Performed By: #### 5 7021-8, 86243-4 ####[facility] [id number] [place] [address] [place] Hematocrit (Bld) [Volume fraction] 34.5 % Low 39.0-51.0 [facility] Comment on above: Order Comment: Speci men Type: BLOOD SPECIMENOrdering Facility: [facility] Address: [address] [place] [address] Performed By: #### 5 7021-8, 71242-2 ####[facility] [id number] [place] [address] [place] Hemoglobin (Bld) [Mass/Vol] 10.2 g/dL Low 13.0-17.0 [facility] Comment on above: Order Comment: Speci men Type: BLOOD SPECIMENOrdering Facility: [facility] Address: [address] [place] [address] Performed By: #### 5 7021-8, 60970-4 ####[facility] [id number] [place] [address] [place] Immature granulocytes (Bld) [#/Vol] 10*3/uL Normal <0.10 [facility] Comment on above: Order Comment: Speci men Type: BLOOD SPECIMENOrdering Facility: [facility] Address: [address] [place] [address] Performed By: #### 5 7021-8, 39587-5 ####[facility]ITALBETZY VO [id number] [place] [address] [place] Immature granulocytes/100 WBC (Bld) 0.1 % Normal [facility] Comment on above: Order Comment: Speci men Type: BLOOD SPECIMENOrdering Facility: [facility] Address: [address] [place] [address] Performed By: #### 5 7021-8, 76158-9 ####[facility] ALEKSEYMT ZIONLUCAS [id number] [place] [address] [place] Lymphocytes (Bld) [#/Vol] 0.66 10*3/uL Low 1.00-4.00 [facility] Comment on above: Order Comment: Speci men Type: BLOOD SPECIMENOrdering Facility: [facility] Address: [address] [place] [address] Performed By: #### 5 7021-8, 29925-9 ####[facility] ALEKSEYMT ZIONBRENDAA [id number] [place] [address] [place] Lymphocytes/100 WBC (Bld) 9.6 % Normal [facility] Comment on above: Order Comment: Speci men Type: BLOOD SPECIMENOrdering Facility: [facility] Address: [address] [place] [address] Performed By: #### 5 7021-8, 72206-6 ####[facility]ITALMARQUESLIA [id number] [place] [address] [place] MCH (RBC) [Entitic mass] 27.6 pg Normal 26.0-34.0 [facility] Comment on above: Order Comment: Speci men Type: BLOOD SPECIMENOrdering Facility: [facility] Address: [address] [place] [address] Performed By: #### 5 7021-8, 60889-5 ####[facility] ALEKSEYMT ZIONLUCAS [id number] [place] [address] [place] MCHC (RBC) [Mass/Vol] 29.6 g/dL Low 30.5-36.0 [facility] Comment on above: Order Comment: Speci men Type: BLOOD SPECIMENOrdering Facility: [facility] Address: [address] [place] [address] Performed By: #### 5 7021-8, 93756-2 ####[facility] HOSPITALLUCAS [id number] [place] [address] [place] MCV (RBC) [Entitic vol] 93.5 fL Normal 80.0-100.0 [facility] Comment on above: Order Comment: Speci men Type: BLOOD SPECIMENOrdering Facility: [facility] Address: [address] [place] [address] Performed By: #### 5 7021-8, 19924-6 ####[facility]OSPITALMARQUESAngelique [id number] [place] [address] [place] Monocytes (Bld) [#/Vol] 0.47 10*3/uL Normal <0.87 [facility] Comment on above: Order Comment: Speci men Type: BLOOD SPECIMENOrdering Facility: [facility] Address: [address] [place] [address] Performed By: #### 5 7021-8, 26326-2 ####[facility] [id number] [place] [address] [place] Monocytes/100 WBC (Bld) 6.8 % Normal [facility] Comment on above: Order Comment: Speci men Type: BLOOD SPECIMENOrdering Facility: [facility] Address: [address] [place] [address] Performed By: #### 5 7021-8, 10589-4 ####[facility] MILLWNCLIA [id number] [place] [address] [place] Neutrophils (Bld) [#/Vol] 5.38 10*3/uL Normal 1.45-7.50 [facility] Comment on above: Order Comment: Speci men Type: BLOOD SPECIMENOrdering Facility: [facility] Address: [address] [place] [address] Performed By: #### 5 7021-8, 17506-5 ####[facility] HOSPITALLIA [id number] [place] [address] [place] Neutrophils/100 WBC (Bld) 78.4 % Normal [facility] Comment on above: Order Comment: Speci men Type: BLOOD SPECIMENOrdering Facility: [facility] Address: [address] [place] [address] Performed By: #### 5 7021-8, 81751-5 ####[facility] HOSPITALLIA [id number] [place] [address] [place] Nucleated RBC (Bld) [#/Vol] 10*3/uL Normal <0.01 [facility] Comment on above: Order Comment: Speci men Type: BLOOD SPECIMENOrdering Facility: [facility] Address: [address] [place] [address] Performed By: #### 5 7021-8, 76394-2 ####[facility] HOSPITALLIA [id number] [place] [address] [place] Nucleated RBC/100 WBC (Bld) [Ratio] 0.0 /100 WBC Normal [facility] Comment on above: Order Comment: Speci men Type: BLOOD SPECIMENOrdering Facility: [facility] Address: [address] [place] [address] Performed By: #### 5 7021-8, 80680-6 ####[facility] HOSPITALLIA [id number] [place] [address] [place] Platelet mean volume (Bld) [Entitic vol] 8.8 fL Low 9.0-12.7 [facility] Comment on above: Order Comment: Speci men Type: BLOOD SPECIMENOrdering Facility: [facility] Address: [address] [place] [address] Performed By: #### 5 7021-8, 20082-4 ####[facility] ALEKSEYANABEL [id number] [place] [address] [place] Platelets (Bld) [#/Vol] 266 10*3/uL Normal 150-400 [facility] Comment on above: Order Comment: Speci men Type: BLOOD SPECIMENOrdering Facility: [facility] Address: [address] [place] [address] Result Comment: No c lot detected. Performed By: #### 5 7021-8, 02128-4 ####[facility] HOSPITALBRENDAA [id number] [place] [address] [place] RBC (Bld) [#/Vol] 3.69 10*6/uL Low 4.20-6.00 [facility] Comment on above: Order Comment: Speci men Type: BLOOD SPECIMENOrdering Facility: [facility] Address: [address] [place] [address] Performed By: #### 5 7021-8, 98022-5 ####[facility] ALEKSEYAWILDAA [id number] [place] [address] [place] WBC (Bld) [#/Vol] 6.87 10*3/uL Normal 3.70-11.00 [facility] Comment on above: Order Comment: Speci men Type: BLOOD SPECIMENOrdering Facility: [facility] Address: [address] [place] [address] Performed By: #### 5 7021-8, 84499-7 ####[facility] [id number] [place] [address] [place] Ferritin SerPl-mCncon 2024 Ferritin [Mass/Vol] 230.0 ng/mL Normal 30.3-565.7 [facility] Comment on above: Order Comment: Speci men Type: BLOOD SPECIMENOrdering Facility: [facility] Address: [address] [place] [address] Performed By: #### 2 276-4, 54844-1 ####[facility] LABCLIA [id number] [place] [address] [place] Iron and Iron binding capaci ty panelon 07-18-2024 Iron [Mass/Vol] 45 ug/dL Normal 41-186 [facility] Comment on above: Order Comment: Speci men Type: BLOOD SPECIMENOrdering Facility: [facility] Address: [address] [place] [address] Performed By: #### 2 276-4, 99742-5 ####[facility] LABIA [id number] [place] [address] [place] Iron binding capacity [Mass/Vol] 275 ug/dL Normal 232-386 [facility] Comment on above: Order Comment: Speci men Type: BLOOD SPECIMENOrdering Facility: [facility] Address: [address] [place] [address] Performed By: #### 2 276-4, 76912-3 ####[facility] LABIA [id number] [place] [address] [place] Iron/TIBC [Molar ratio] 16.4 % Normal 15.0-57.0 [facility] Comment on above: Order Comment: Speci men Type: BLOOD SPECIMENOrdering Facility: [facility] Address: [address] [place], [place] [address] Performed By: #### 2 276-4, 76784-9 ####[facility] LABCLIA [id number] [address] [place] No Panel Informationon 07-18 [facility] RETICULOCYTE COUNTon 025 Reticulocytes (Bld) [#/Vol] 0.055 10*3/uL [facility] Retics #on 07-18-2024 Reticulocytes (Bld) [#/Vol] 0.15513 10*3/uL Normal 0.018-0.10 0 [facility] Comment on above: Order Comment: Spechawa doran Type: BLOOD SPECIMENOrdering Facility: [facility] Address: [address] [place] [address] Performed By: #### 5 7021-8, 03918-5 ####[facility] INSTITUTEAngelique [id number] [address] [place] Reticulocytes (Bld) [#/Vol]o n 07-18-2024 Interpretation and review of laboratory results Normal [facility] Reticulocytes/100 RBC (Bld) 1.5 % 0.4 - 2.0 % [facility] Reticulocytes/100 RBC (Bld) 1.5 % Normal 0.4-2.0 [facility] Comment on above: Order Comment: Fab doran Type: BLOOD SPECIMENOrdering Facility: [facility] Address: [address] [place] [address] Performed By: #### 5 7021-8, 83626-8 ####[facility] HOSPITALRICK [id number] [place] [address] [place] Wound Cultureon 07-16-[address] [facility] Comment on above: Performed By: #### M 100.4001, M100.3000, M100.1999 ####[facility] [address] [place], [place], [id number] CNPNon 07-15-2024 CNPN Normal [facility] Gram Stainon 07-14-2024 GS LEFT FOOT ULCER Gram Stain No organisms seen No cells seen Normal [facility] Comment on above: Performed By: #### M 100.4001, M100.3000, M100.2000 ####[facility] [address] [place], [address] Anaerobic cultureOrdered By: Rasta Mazariegos on 07-13-2024 Bacteria identified Anaer cx Nom (Unsp spec) No growth in [address] [facility] Gram stainOrdered By: Wayne Mazariegos on 07-13-2024 Microscopic observation Gram stain Nom (Unsp spec) [facility] L2100.0000on 07-11-2024 ACCA 40 units Normal 0-90 [facility] Comment on above: Result Comment: Nega tive: <80 Equivocal: 80-90 Positive: >90 Performed By: #### L 101.9900, L2100.0000, L501.6710 ####[facility] [address] [place], [address] ALCA 1 units Normal 0-60 [facility] Comment on above: Result Comment: Nega tive:<55 Equivocal: 55-60 Positive: >60 Performed By: #### L 101.9900, L2100.0000, L501.6710 ####[facility] [address] [place], [address] AMCA 49 units Normal 0-100 [facility] Comment on above: Result Comment: Nega tive: <90 Equivocal: 90-100 Positive: >100 This test was developed and its performance characteristics determined by [facility]. It has not been cleared or approved by the Food and Drug Administration. The FDA has determined that such clearance or approval is not necessary. Performed By: #### L 101.9900, L2100.0000, L501.6710 ####[facility] [address] [place], [address] Atypical pANCA Negative Normal Negative [facility] Comment on above: Performed By: #### L 101.9900, L2100.0000, L501.6710 ####[facility] [address] [place], [address] COMMENT Comment Normal . [facility] Comment on above: Result Comment: Shantelle osmani is not suggestive of Inflammatory Bowel DiseasePerformed at: [facility] Lab[address] [id number] Director: Yamilet Dunbar MD, Phone: [phone] Performed By: #### L 101.9900, L2100.0000, L501.6710 ####[facility] [address] [place], [place], [id number] Mikki 45 units Normal 0-50 [facility] Comment on above: Result Comment: Nega tive: <45 Equivocal: 45-50 Positive: >50 Performed By: #### L 101.9900, L2100.0000, L501.6710 ####[facility] [address] [place], [place], [address] CNOVon 07-01-2024 CNOV Normal [facility] Atypical P-ANCA titerOrdered By: Sosa Silva on 06-30-2024 Neutrophil cytoplasmic Ab.perinuclear.atypica l IF (S) [Titer] Negative Negative [facility] CRPon 06-30-2024 C-REACTIVE PROT 65.40 mg/L High 0.0-3.0 [facility] Comment on above: Performed By: #### L 101.9900, L2100.0000, L501.6710 ####[facility] [address] [place], [place], [id number] Chitobioside IgA antibody as sayOrdered By: Sosa Silva on 06-30-2024 Chitobioside IgA IA Qn 40 units 0-90 [facility] Comment on above: Negative: <80 Equivo jonh: 80-90 Positive: >90 Erythrocyte Sed Rateon 06-30 SED RATE 23 mm/hr High 0-20 [facility] Comment on above: Performed By: #### L 101.9900, L2100.0000, L501.6710 ####[facility] [address] [place], [place], [id number] Erythrocyte sedimentation ra teOrdered By: Sosa Silva on 06-30-2024 ESR (Bld) [Velocity] 23 mm/h High 0-20 [facility] Gastroenterology Visit Repor ton 06-30-2024 Gastroenterology Visit Report Normal [facility] Laboratory - Miscellaneous t estsOrdered By: Sosa Silva on 06-30-2024 Laboratory comment Max (Report) Comment . [facility] Comment on above: Pattern is not sugge stive of Inflammatory Bowel DiseasePerformed at: [facility] Lab[address] [id number] Director: Yamilet Dunbar MD, Phone: [phone] Laminaribioside carbohydrate IgG antibody assayOrdered By: Sosa Silva on 06-30-2024 Laminaribioside IgG IA Qn 1 units 0-60 [facility] Comment on above: Negative:<55 Equivoc al: 55-60 Positive: >60 Serum or plasma C reactive p rotein measurement (mass/volume)Ordered By: Sosa Silva on 06-30-2024 CRP [Mass/Vol] 65.40 mg/L High 0.0-3.0 [facility] Serum or plasma mannobioside IgG antibody assay by immunoassay (units/volume)Ordered By: Sosa Silva on 06-30-2024 Mannobioside IgG IA Qn 49 units 0-100 [facility] Comment on above: Negative: <90 Equivo jonh: 90-100 Positive: >100 This test was developed and its performance characteristics determined by [facility]. It has not been cleared or approved by the Food and Drug Administration. The FDA has determined that such clearance or approval is not necessary. CNOVon 06-24-2024 CNOV Normal [facility] CNPNon 06-22-2024 CNPN Normal [facility] Comprehensive metabolic 2000 panelon 06-22-2024 Albumin [Mass/Vol] 3.4 g/dL Low 3.9-4.9 [facility] Comment on above: Order Comment: Speci men Type: BLOOD SPECIMENOrdering Facility: [facility] Address: [address] [place], [place] [address] Performed By: #### 2 4323-8 ####[facility] DUNEDIN HOSPITALWNCLIA [id number] [place] [address] [place] ALP [Catalytic activity/Vol] 87 U/L Normal 38-113 [facility] Comment on above: Order Comment: Speci men Type: BLOOD SPECIMENOrdering Facility: [facility] Address: [address] [place] [address] Performed By: #### 2 4323-8 ####[facility] HOSPITALLIA [id number] [place] [address] [place] ALT [Catalytic activity/Vol] 6 U/L Low 10-54 [facility] Comment on above: Order Comment: Speci men Type: BLOOD SPECIMENOrdering Facility: [facility] Address: [address] [place] [address] Performed By: #### 2 4323-8 ####[facility]ITALNCLIA [id number] [place] [address] [place] Anion gap [Moles/Vol] 6 mmol/L Low 8-15 [facility] Comment on above: Order Comment: Speci men Type: BLOOD SPECIMENOrdering Facility: [facility] Address: [address] [place] [address] Performed By: #### 2 4323-8 ####[facility] HOSPITALLIA [id number] [place] [address] [place] AST [Catalytic activity/Vol] 13 U/L Low 14-40 [facility] Comment on above: Order Comment: Speci men Type: BLOOD SPECIMENOrdering Facility: [facility] Address: [address] [place] [address] Performed By: #### 2 4323-8 ####[facility]OSPITALNCLIA [id number] [place] [address] [place] Bilirubin [Mass/Vol] 0.2 mg/dL Normal 0.2-1.3 [facility] Comment on above: Order Comment: Speci men Type: BLOOD SPECIMENOrdering Facility: [facility] Address: [address] [place] [address] Performed By: #### 2 4323-8 ####[facility] MISHEL GALLAGHERNCRICK [id number] [place] [address] [place] Calcium [Mass/Vol] 9.4 mg/dL Normal 8.5-10.2 [facility] Comment on above: Order Comment: Speci men Type: BLOOD SPECIMENOrdering Facility: [facility] Address: [address] [place] [address] Performed By: #### 2 4323-8 ####[facility] ALEKSEYAugustineNCPAULAA [id number] [place] [address] [place] Chloride [Moles/Vol] 103 mmol/L Normal 98-107 [facility] Comment on above: Order Comment: Speci men Type: BLOOD SPECIMENOrdering Facility: [facility] Address: [address] [place] [address] Performed By: #### 2 4323-8 ####[facility] ALEKSEYMT ZIONNCPAULAA [id number] [place] [address] [place] CO2 [Moles/Vol] 29 mmol/L Normal 22-30 [facility] Comment on above: Order Comment: Speci men Type: BLOOD SPECIMENOrdering Facility: [facility] Address: [address] [place] [address] Performed By: #### 2 4323-8 ####[facility]PITALNCLIA [id number] [place] [address] [place] Creatinine [Mass/Vol] 0.94 mg/dL Normal 0.73-1.22 [facility] Comment on above: Order Comment: Speci men Type: BLOOD SPECIMENOrdering Facility: [facility] Address: [address] [place] [address] Performed By: #### 2 4323-8 ####[facility]ITALNCS[facility] [id number] [place] [address] [place] Creatinine and Glomerular filtration rate.predicted panel (S/P/Bld) 81 mL/min/1.73m??? Normal >=60 [facility] Comment on above: Order Comment: Fab doran Type: BLOOD SPECIMENOrdering Facility: [facility] Address: [address] [place] [address] Result Comment: Karey mated Glomerular Filtration Rate [...] actual GFR. Performed By: #### 2 4323-8 ####[facility] [id number] [place] [address] [place] Glucose [Mass/Vol] 104 mg/dL High 74-99 [facility] Comment on above: Order Comment: Fab doran Type: BLOOD SPECIMENOrdering Facility: [facility] Address: [address] [place] [address] Result Comment: The [place] Diabetes Association (ADA) provides guidance for cutoff [...] Standards of Medical Care in Diabetes 2016, [place] [employer]. Diabetes Care. 2016.39(Suppl 1). Performed By: #### 2 4323-8 ####[facility] [id number] [place] [address] [place] Potassium [Moles/Vol] 4.4 mmol/L Normal 3.7-5.1 [facility] Comment on above: Order Comment: Speci men Type: BLOOD SPECIMENOrdering Facility: [facility] Address: [address] [place] [address] Performed By: #### 2 4323-8 ####[facility] MILLWMARQUESLIA [id number] [place] [address] [place] Protein [Mass/Vol] 6.0 g/dL Low 6.3-8.0 [facility] Comment on above: Order Comment: Speci men Type: BLOOD SPECIMENOrdering Facility: [facility] Address: [address] [place] [address] Performed By: #### 2 4323-8 ####[facility] HOSPITALLUCAS [id number] [place] [address] [place] Sodium [Moles/Vol] 138 mmol/L Normal 136-144 [facility] Comment on above: Order Comment: Speci men Type: BLOOD SPECIMENOrdering Facility: [facility] Address: [address] [place] [address] Performed By: #### 2 4323-8 ####[facility]OSPITALMARQUESLIA [id number] [place] [address] [place] Urea nitrogen [Mass/Vol] 17 mg/dL Normal 9-24 [facility] Comment on above: Order Comment: Speci men Type: BLOOD SPECIMENOrdering Facility: [facility] Address: [address] [place] [address] Performed By: #### 2 4323-8 ####[facility]ITALNCLIA [id number] [place] [address] [place] HbA1c (Bld)on 06-22-2024 Average glucose Estimated from glycated hemoglobin (Bld) [Mass/Vol] 108 mg/dL Normal [facility] Comment on above: Order Comment: Fab espinoza Type: BLOOD SPECIMENOrdering Facility: [facility] Address: [address] [place] [address] Result Comment: eAG: (Estimated average glucose) is a calculated value from HgbA1c and is branch customer service representative of the average blood glucose level in the last 2-3 month period. Performed By: #### 5 [id number] ####[facility]CL[facility] [id number] [address] [place] HbA1c (Bld) [Mass fraction] 5.4 % Normal 4.3-5.6 [facility] Comment on above: Order Comment: Fab espinoza Type: BLOOD SPECIMENOrdering Facility: [facility] Address: [address] [place] [address] Result Comment: [place] [place] [employer] guidelines indicate that patients with HgbA1c in the range 5.7-6.4% are at increased risk for development of diabetes, and intervention by lifestyle modification may be beneficial. HgbA1c greater or equal to 6.5% is considered diagnostic of diabetes. Performed By: #### 5 5454-3 ####[facility] LABCLIA [id number] [place] [address] [place] Lipid 1996 panelon 5 Cholesterol [Mass/Vol] 96 mg/dL Normal <200 [facility] Comment on above: Order Comment: Fab espinoza Type: BLOOD SPECIMENOrdering Facility: [facility] Address: [address] [place] [address] Result Comment: <200 mg/dL, Desirable 200-239 mg/dL, Borderline high>239 mg/dL, High Performed By: #### 2 4331-1 ####[facility] LABCLIA [id number] [place] [address] [place] [facility] [id number] [place] [address] [place] Cholesterol in HDL [Mass/Vol] 38 mg/dL Low >39 [facility] Comment on above: Order Comment: Speci men Type: BLOOD SPECIMENOrdering Facility: [facility] Address: [address] [place] [address] Result Comment: 40-5 9 mg/dL, Acceptable>59 mg/dL, High: Negative risk factor for coronary heart disease<40 mg/dL, Low: Positive risk factor for coronary heart disease Performed By: #### 2 4331-1 ####[facility] LABCLIA [id number] [address] [id number] [place] [address] [place] Cholesterol in LDL [Mass/Vol] 38 mg/dL Normal <100 [facility] Comment on above: Order Comment: Fab espinoza Type: BLOOD SPECIMENOrdering Facility: [facility] Address: [address] [place] [address] Result Comment: <100 mg/dL, Optimal 100-129 mg/dL, Near optimal/above optimal 130-159 mg/dL, Borderline high 160-189 mg/dL, High>189 mg/dL, Very highSecondary prevention optimal LDL Cholesterol levels are recommended to be <70 mg/dLLDL cholesterol is calculated using the Keane-NIH equation. Performed By: #### 2 4331-1 ####[facility] LABIA [id number] [address] [id number] [place] [address] [place] Cholesterol in LDL/Cholesterol in HDL [Mass ratio] 1.00 {ratio} Normal <2.54 [facility] Comment on above: Order Comment: Suni men Type: BLOOD SPECIMENOrdering Facility: [facility] Address: [address] [place] [address] Result Comment: Refe rence:1. National Cholesterol Education Program ATP III Guideline At-A-Glance Quick Desk Reference: National Heart, Lung, and Blood [place]. National Institutes of Health. 2001: NIH Publication No. 01-3305.2. An International Atherosclerosis Society position paper: global recommendations for the management of dyslipidemia: executive summary, Atherosclerosis. 2014: 232(2):410-413. Performed By: #### 2 4331-1 ####[facility] LABCLIA [id number] [address] [id number] [place] [address] Cholesterol in VLDL [Mass/Vol] 14 mg/dL Normal <30 [facility] Comment on above: Order Comment: Speci men Type: BLOOD SPECIMENOrdering Facility: [facility] Address: [address] [place] [address] Performed By: #### 2 4331-1 ####[facility] LABCLIA [id number] [address] [id number] [place] [address] [place] Cholesterol non HDL [Mass/Vol] 58 mg/dL Normal <130 [facility] Comment on above: Order Comment: Speci men Type: BLOOD SPECIMENOrdering Facility: [facility] Address: [address] [place] [address] Result Comment: <130 mg/dL, Optimal 130-159 mg/dL, Near optimal/above optimal 160-189 mg/dL, Borderline high 190-219 mg/dL, High>219 mg/dL, Very highSecondary prevention optimal non HDL Cholesterol levels are recommended to be <100 mg/dL Performed By: #### 2 4331-1 ####[facility] LABCLIA [id number] [address] [id number] [address] [place] Cholesterol.total/Chol esterol in HDL [Mass ratio] 2.53 {ratio} Normal <5.10 [facility] Comment on above: Order Comment: Speci men Type: BLOOD SPECIMENOrdering Facility: [facility] Address: [address] [place] [address] Performed By: #### 2 4331-1 ####[facility] LABCLIA [id number] [address] [id number] [place] [address] STATES OF [facility] FASTING TIME 12 hrs Normal [facility] Comment on above: Order Comment: Speci men Type: BLOOD SPECIMENOrdering Facility: [facility] Address: [address] [place] [address] Performed By: #### 2 4331-1 ####[facility] LABCLIA [id number] [address] [id number] [place] [address] [place] Triglyceride [Mass/Vol] 106 mg/dL Normal <150 [facility] Comment on above: Order Comment: Speci men Type: BLOOD SPECIMENOrdering Facility: [facility] Address: [address] [place] [address] Result Comment: <150 mg/dL, Normal 150-199 mg/dL, Borderline high 200-499 mg/dL, High>499 mg/dL, Very high Performed By: #### 2 4331-1 ####[facility] LABCLIA [id number] [address] [id number] [place] [address] [place] CNPNon 06-14-2024 CNPN Normal [facility] Absolute lymphocyte countOrd ered By: Mirna Lam on 06-13-2024 Lymphocytes Auto (Unsp spec) [#/Vol] 0.43 10*3/uL Low 0.83-4.51 [facility] Absolute neutrophil countOrd ered By: Mirna Lam on 06-13-2024 Neutrophils (Bld) [#/Vol] 7.0 10*3/uL 2.0-7.7 [facility] Absolute neutrophil count 7.0 X10^3/uL 2.0-7.7 [facility] Automated blood erythrocyte countOrdered By: Mirna Lam on 06-13-2024 RBC (Bld) [#/Vol] 3.17 10*6/uL Low 4.6-6.2 [facility] Comment on above: Performed By: #### L 100.0100 ####[facility] [address] [place], [place], [id number] Automated blood hematocrit ( percentage)Ordered By: Mirna Lam on 06-13-2024 Hematocrit (Bld) [Volume fraction] 28.9 % Low 40-54 [facility] Comment on above: Performed By: #### L 100.0100 ####[facility] [address] [place], [place], [id number] Automated lymphocyte count a s percentage of total leukocytesOrdered By: Mirna Lam on 06-13-2024 Lymphocytes/100 WBC Auto (Unsp spec) 5.4 % Low 19-41 [facility] Basophil percentageOrdered B y: Mirna Lam on 06-13-2024 Basophils/100 WBC (Bld) 0.3 % Normal 0-1 [facility] Comment on above: Performed By: #### L 100.0100 ####[facility] [address] [place], [place], [id number] Basophil percentage 0.3 % 0-1 [facility] CBC W Auto Differential pane l (Bld)on 06-13-2024 Basophils (Bld) [#/Vol] 10*3/uL Normal <0.11 [facility] Comment on above: Order Comment: Speci men Type: BLOOD SPECIMENOrdering Facility: [facility] Address: [address] [place] [address] [place] [address] Performed By: #### 5 7021-8, 97947-0 ####[facility] MILLTOWNCLIA [id number] [place] [address] [place] Basophils/100 WBC (Bld) 0.3 % Normal [facility] Comment on above: Order Comment: Speci men Type: BLOOD SPECIMENOrdering Facility: [facility] Address: [address] [place] [address] Performed By: #### 5 7021-8, 16796-2 ####[facility] MILLWNCLIA [id number] [place] [address] [place] Differential cell count method Nom (Bld) Auto Normal [facility] Comment on above: Order Comment: Speci men Type: BLOOD SPECIMENOrdering Facility: [facility] Address: [address] [place] [address] Performed By: #### 5 7021-8, 62431-0 ####[facility] MILLWNCLIA [id number] [place] [address] [place] Eosinophils (Bld) [#/Vol] 0.03 10*3/uL Normal <0.46 [facility] Comment on above: Order Comment: Speci men Type: BLOOD SPECIMENOrdering Facility: [facility] Address: [address] [place] [address] Performed By: #### 5 7021-8, 98921-1 ####[facility] MILLWNCLIA [id number] [place] [address] [place] Eosinophils/100 WBC (Bld) 0.4 % Normal [facility] Comment on above: Order Comment: Speci men Type: BLOOD SPECIMENOrdering Facility: [facility] Address: [address] [place] [address] Performed By: #### 5 7021-8, 75836-2 ####[facility]CL[facility] [id number] [place] [address] [place] Erythrocyte distribution width (RBC) [Ratio] 15.9 % High 11.5-15.0 [facility] Comment on above: Order Comment: Speci men Type: BLOOD SPECIMENOrdering Facility: [facility] Address: [address] [place] [address] Performed By: #### 5 7021-8, 65990-3 ####[facility] ALEKSEYMT ZIONBRENDAA [id number] [place] [address] [place] Hematocrit (Bld) [Volume fraction] 28.6 % Low 39.0-51.0 [facility] Comment on above: Order Comment: Speci men Type: BLOOD SPECIMENOrdering Facility: [facility] Address: [address] [place] [address] Performed By: #### 5 7021-8, 63666-0 ####[facility]ITALMARQUESAngelique [id number] [place] [address] [place] Hemoglobin (Bld) [Mass/Vol] 8.4 g/dL Low 13.0-17.0 [facility] Comment on above: Order Comment: Speci men Type: BLOOD SPECIMENOrdering Facility: [facility] Address: [address] [place] [address] Performed By: #### 5 7021-8, 21764-1 ####[facility] HOSPITALMARQUESA [id number] [place] [address] [place] Immature granulocytes (Bld) [#/Vol] 0.03 10*3/uL Normal <0.10 [facility] Comment on above: Order Comment: Speci men Type: BLOOD SPECIMENOrdering Facility: [facility] Address: [address] [place] [address] Performed By: #### 5 7021-8, 56068-1 ####[facility]ITALNCLIA [id number] [place] [address] [place] Immature granulocytes/100 WBC (Bld) 0.4 % Normal [facility] Comment on above: Order Comment: Speci men Type: BLOOD SPECIMENOrdering Facility: [facility] Address: [address] [place] [address] Performed By: #### 5 7021-8, 46126-8 ####[facility] [id number] [place] [address] [place] Lymphocytes (Bld) [#/Vol] 0.42 10*3/uL Low 1.00-4.00 [facility] Comment on above: Order Comment: Speci men Type: BLOOD SPECIMENOrdering Facility: [facility] Address: [address] [place] [address] Performed By: #### 5 7021-8, 93987-1 ####[facility] [id number] [place] [address] [place] Lymphocytes/100 WBC (Bld) 5.5 % Normal [facility] Comment on above: Order Comment: Speci men Type: BLOOD SPECIMENOrdering Facility: [facility] Address: [address] [place] [address] Performed By: #### 5 7021-8, 13019-9 ####[facility] [id number] [place] [address] [place] MCH (RBC) [Entitic mass] 26.4 pg Normal 26.0-34.0 [facility] Comment on above: Order Comment: Speci men Type: BLOOD SPECIMENOrdering Facility: [facility] Address: [address] [place] [address] Performed By: #### 5 7021-8, 43636-7 ####[facility] [id number] [place] [address] [place] MCHC (RBC) [Mass/Vol] 29.4 g/dL Low 30.5-36.0 [facility] Comment on above: Order Comment: Speci men Type: BLOOD SPECIMENOrdering Facility: [facility] Address: [address] [place] [address] Performed By: #### 5 7021-8, 06713-9 ####[facility] ALEKSEYMT ZIONNCRICK [id number] [place] [address] [place] MCV (RBC) [Entitic vol] 89.9 fL Normal 80.0-100.0 [facility] Comment on above: Order Comment: Speci men Type: BLOOD SPECIMENOrdering Facility: [facility] Address: [address] [place] [address] Performed By: #### 5 7021-8, 29249-0 ####[facility] HOSPITALNCRICK [id number] [place] [address] [place] Monocytes (Bld) [#/Vol] 0.34 10*3/uL Normal <0.87 [facility] Comment on above: Order Comment: Speci men Type: BLOOD SPECIMENOrdering Facility: [facility] Address: [address] [place] [address] Performed By: #### 5 7021-8, 36465-2 ####[facility] HOSPITALNCPAULAA [id number] [place] [address] [place] Monocytes/100 WBC (Bld) 4.4 % Normal [facility] Comment on above: Order Comment: Speci men Type: BLOOD SPECIMENOrdering Facility: [facility] Address: [address] [place] [address] Performed By: #### 5 7021-8, 78911-4 ####[facility]ITALNCLIA [id number] [place] [address] [place] Neutrophils (Bld) [#/Vol] 6.84 10*3/uL Normal 1.45-7.50 [facility] Comment on above: Order Comment: Speci men Type: BLOOD SPECIMENOrdering Facility: [facility] Address: [address] [place] [address] Performed By: #### 5 7021-8, 06180-1 ####[facility] GILDA [id number] [place] [address] [place] Neutrophils/100 WBC (Bld) 89.0 % Normal [facility] Comment on above: Order Comment: Speci men Type: BLOOD SPECIMENOrdering Facility: [facility] Address: [address] [place] [address] Performed By: #### 5 7021-8, 52567-0 ####[facility] ALEKSEYMT ZIONLUCAS [id number] [place] [address] [place] Nucleated RBC (Bld) [#/Vol] 10*3/uL Normal <0.01 [facility] Comment on above: Order Comment: Speci men Type: BLOOD SPECIMENOrdering Facility: [facility] Address: [address] [place] [address] Performed By: #### 5 7021-8, 80377-5 ####[facility] ALEKSEYMT ZIONBRENDAA [id number] [place] [address] [place] Nucleated RBC/100 WBC (Bld) [Ratio] 0.0 /100 WBC Normal [facility] Comment on above: Order Comment: Speci men Type: BLOOD SPECIMENOrdering Facility: [facility] Address: [address] [place] [address] Performed By: #### 5 7021-8, 09448-4 ####[facility]ITALNCLIA [id number] [place] [address] [place] Platelet mean volume (Bld) [Entitic vol] 8.2 fL Low 9.0-12.7 [facility] Comment on above: Order Comment: Speci men Type: BLOOD SPECIMENOrdering Facility: [facility] Address: [address] [place] [address] Performed By: #### 5 7021-8, 55593-5 ####[facility]ITALWNCLIA [id number] [place] [address] [place] Platelets (Bld) [#/Vol] 184 10*3/uL Normal 150-400 [facility] Comment on above: Order Comment: Speci men Type: BLOOD SPECIMENOrdering Facility: [facility] Address: [address] [place], [place] [address] Performed By: #### 5 7021-8, 52038-8 ####[facility]ITALNCLIA [id number] [place] [address] [place] RBC (Bld) [#/Vol] 3.18 10*6/uL Low 4.20-6.00 [facility] Comment on above: Order Comment: Speci men Type: BLOOD SPECIMENOrdering Facility: [facility] Address: [address] [place] [address] Performed By: #### 5 7021-8, 69462-7 ####[facility] [id number] [place] [address] [place] WBC (Bld) [#/Vol] 7.68 10*3/uL Normal 3.70-11.00 [facility] Comment on above: Order Comment: Speci men Type: BLOOD SPECIMENOrdering Facility: [facility] Address: [address] [place] [address] Performed By: #### 5 7021-8, 90809-6 ####[facility]ITALNCLIA [id number] [place] [address] [place] CBC W/Diff, Automatedon 04 Absolute Lymph 0.43 X10 3/uL Low 0.83-4.51 [facility] Comment on above: Performed By: #### L 100.0100 ####[facility] [address] [place], [address] Absolute Neut 7.0 X10 3/uL Normal 2.0-7.7 [facility] Comment on above: Performed By: #### L 100.0100 ####[facility] [address] [place], [address] IG% 0.500 Normal 0.0-0.9 [facility] Comment on above: Result Comment: IG% - Immature Granulocytes (promyelocytes, myelocytes andmetamyelocytes) > 1% indicates that a LEFT SHIFT is Present. Performed By: #### L 100.0100 ####[facility] [address] [place], [address] Lymphocytes/100 WBC (Bld) 5.4 % Low 19-41 [facility] Comment on above: Performed By: #### L 100.0100 ####[facility] [address] [place], [address] Nucleated RBC (Bld) [#/Vol] 0 10*3/uL Normal 0-5 [facility] Comment on above: Performed By: #### L 100.0100 ####[facility] [address] [place], [address] RDW SD 51.8 fl High 35.1-43.9 [facility] Comment on above: Performed By: #### L 100.0100 ####[facility] [address] [place], [address] Culture, Anaerobic Any Sourc mariah 06-13-2024 CUAN LEFT MEDIAN ANKLE GR AM STAIN No anaerobic bacteria isolated. Normal [facility] Comment on above: Performed By: #### M 100.2000, M100.4001, M100.3000 ####[facility] [address] [place], [address] Diagnostic total prostate sp ecific antigen (PSA) measurementOrdered By: Teresa Garner on 06-13-2024 Diagnostic total prostate specific antigen (PSA) measurement 0.17 ng/mL 0.00-4.00 [facility] Eosinophil percentageOrdered By: Mirna Lam on 06-13-2024 Eosinophils/100 WBC (Bld) 0.9 % Normal 0-5 [facility] Comment on above: Performed By: #### L 100.0100 ####[facility] [address] [place], [place], [phone] Eosinophil percentage 0.9 % 0-5 [facility] Erythrocyte distribution wid th (RBC) [Ratio]Ordered By: Mirna Lam on 06-13-2024 Erythrocyte distribution width ratio 15.8 % High 11.6-14.6 [facility] Erythrocyte distribution width standard deviation 51.8 fl High 35.1-43.9 [facility] Erythrocyte distribution wid th ratioOrdered By: Mirna Lam on 06-13-2024 Erythrocyte distribution width (RBC) [Ratio] 15.8 % High 11.6-14.6 [facility] Comment on above: Performed By: #### L 100.0100 ####[facility] [address] [facility] [place], [place], [phone] Erythrocyte distribution wid th standard deviationOrdered By: Mirna Lam on 06-13-2024 Erythrocyte distribution width (RBC) [Ratio] 51.8 fl High 35.1-43.9 [facility] Ferritin SerPl-mCncon 2024 Ferritin [Mass/Vol] 72.3 ng/mL Normal 30.3-565.7 [facility] Comment on above: Order Comment: Speci men Type: BLOOD SPECIMENOrdering Facility: [facility] Address: [address] [place] [address] Performed By: #### 2 276-4, 49095-5 ####[facility] LABCLIA [id number] [place] [address] [place] Hematocrit Auto (Bld) [Volum e fraction]Ordered By: Mirna Lam on 06-13-2024 Automated blood hematocrit (percentage) 28.9 % Low 40-54 [facility] Hemoglobin measurementOrdere d By: Mirna Lam on 06-13-2024 Hemoglobin (Bld) [Mass/Vol] 8.6 g/dL Low 13.0-16.5 [facility] Comment on above: Performed By: #### L 100.0100 ####[facility] [address] [place], [address] Hemoglobin measurement 8.6 g/dL Low 13.0-16.5 [facility] Immature granulocytes/100 WB C Auto (Bld)Ordered By: Mirna Lam on 06-13-2024 Immature granulocytes/100 WBC (Bld) 0.500 % 0.0-0.9 [facility] Comment on above: IG% - Immature Granu locytes (promyelocytes, myelocytes and metamyelocytes) > 1% indicates that a LEFT SHIFT is Present. Automated immature granulocyte percentage 0.500 % 0.0-0.9 [facility] Iron and Iron binding capaci ty panelon 06-13-2024 Iron [Mass/Vol] 30 ug/dL Low 41-186 [facility] Comment on above: Order Comment: Speci men Type: BLOOD SPECIMENOrdering Facility: [facility] Address: [address] [place] [address] Performed By: #### 2 276-4, 99700-6 ####[facility] LABCLIA [id number] [place] [address] [place] Iron binding capacity [Mass/Vol] 297 ug/dL Normal 232-386 [facility] Comment on above: Order Comment: Speci men Type: BLOOD SPECIMENOrdering Facility: [facility] Address: [address] [place] [address] Performed By: #### 2 276-4, 86319-1 ####[facility] LABCLIA [id number] [place] [address] [place] Iron/TIBC [Molar ratio] 10.1 % Low 15.0-57.0 [facility] Comment on above: Order Comment: Speci men Type: BLOOD SPECIMENOrdering Facility: [facility] Address: [address] [place] [address] Performed By: #### 2 276-4, 10317-5 ####[facility] LABCLIA [id number] [facility] [place] [address] [place] Lymphocytes Auto (Unsp spec) [#/Vol]Ordered By: Mirna Lam on 06-13-2024 Absolute lymphocyte count 0.43 X10^3/uL Low 0.83-4.51 [facility] Lymphocytes/100 WBC Auto (Un sp spec)Ordered By: Mirna Lam on 06-13-2024 Automated lymphocyte count as percentage of total leukocytes 5.4 % Low 19-41 [facility] MCV (RBC) [Entitic vol]Order ed By: Mirna Lam on 06-13-2024 MCV (mean corpuscular volume) determination 91.2 fL 80-94 [facility] MCV (mean corpuscular volume ) determinationOrdered By: Mirna Lam on 06-13-2024 MCV (RBC) [Entitic vol] 91.2 fL Normal 80-94 [facility] Comment on above: Performed By: #### L 100.0100 ####[facility] [address] [facility] [place], [place], [id number] Mean corpuscular hemoglobin (MCH) determinationOrdered By: Mirna Lam on 06-13-2024 MCH (RBC) [Entitic mass] 27.1 pg Normal 27.0-32.0 [facility] Comment on above: Performed By: #### L 100.0100 ####[facility] [address] [facility] [place], [address] Mean corpuscular hemoglobin (MCH) determination 27.1 pg 27.0-32.0 [facility] Mean corpuscular hemoglobin concentration (MCHC) determinationOrdered By: Mirna Lam on 06-13-2024 MCHC (RBC) [Mass/Vol] 29.8 g/dL Low 32-36 [facility] Comment on above: Performed By: #### L 100.0100 ####[facility] [address] [place], [address] Mean corpuscular hemoglobin concentration (MCHC) determination 29.8 g/dL Low 32-36 [facility] Mean platelet volume determi nationOrdered By: Mirna Lam on 06-13-2024 Platelet mean volume (Bld) [Entitic vol] 9.0 fL Normal 6.2-12.0 [facility] Comment on above: Performed By: #### L 100.0100 ####[facility] [address] [place], [place], [id number] Mean platelet volume determination 9.0 fl 6.2-12.0 [facility] Monocyte percentageOrdered B y: Mirna Lam on 06-13-2024 Monocytes/100 WBC (Bld) 4.6 % Normal 0-10 [facility] Comment on above: Performed By: #### L 100.0100 ####[facility] [address] [place], [address] Monocyte percentage 4.6 % 0-10 [facility] Neutrophil percentageOrdered By: Mirna Lam on 06-13-2024 Neutrophils/100 WBC (Bld) 88.3 % High 47-70 [facility] Comment on above: Performed By: #### L 100.0100 ####[facility] [address] [place], [place], [phone] Neutrophil percentage 88.3 % High 47-70 [facility] Nucleated red blood cell per centageOrdered By: Mirna Lam on 06-13-2024 Nucleated RBC/100 WBC (Bld) [Ratio] 0 % 0-5 [facility] Nucleated red blood cell percentage 0 % 0-5 [facility] Office Visit Reporton 2024 Office Visit Report Normal [facility] PSA,Total- Diagnosticon 05-31 PSA, DIAGNOSTIC 0.17 ng/mL Normal 0.00-4.00 [facility] Comment on above: Result Comment: This test was performed using the [employer] tPSAmethod. Measured values of a patient??sample can varydepending on the testing procedure used. PSA valuesdetermined on patient samples by different testingprocedures cannot be used interchangeably. If there is achange in PSA assays while monitoring therapy, sequentialtesting should be performed to confirm baseline values. Performed By: #### L 501.9940 ####[facility] [address] [place], [address] Platelet countOrdered By: Shaji david Lam on 06-13-2024 Platelets (Bld) [#/Vol] 213 10*3/uL Normal 150-450 [facility] Comment on above: Performed By: #### L 100.0100 ####[facility] [address] [place], [address] Platelet count 213 K/mm3 150-450 [facility] RBC Auto (Bld) [#/Vol]Ordere d By: Mirna Genaro on 06-13-2024 Automated blood erythrocyte count 3.17 M/mm3 Low 4.6-6.2 [facility] Retics #on 06-13-2024 Reticulocytes (Bld) [#/Vol] 0.0001 10*3/uL Normal 0.018-0.10 0 [facility] Comment on above: Order Comment: Speci men Type: BLOOD SPECIMENOrdering Facility: [facility] Address: [address] [place] [address] Performed By: #### 5 7021-8, 16512-0 ####[facility] [id number] [place] [address] [place] Reticulocytes (Bld) [#/Vol]o n 06-13-2024 Reticulocytes/100 RBC (Bld) 3.0 % High 0.4-2.0 [facility] Comment on above: Order Comment: Speci men Type: BLOOD SPECIMENOrdering Facility: [facility] Address: [address] [place] [address] Performed By: #### 5 7021-8, 96952-8 ####[facility] [id number] [place] [address] [place] White blood cell (WBC) count Ordered By: Mirna Lam on 06-13-2024 WBC (Bld) [#/Vol] 8.0 10*3/uL Normal 4.4-11.0 [facility] Comment on above: Performed By: #### L 100.0100 ####[facility] [address] [place], [address] White blood cell (WBC) count 8.0 K/mm3 4.4-11.0 [facility] Stool Occult Blood iFOBon STOB Normal [facility] Comment on above: Performed By: #### M 100.7900 ####[facility] [address], [address] Stool gastrointestinal hemog lobin detection by immunologic methodOrdered By: Sosa Silva on 06-10-2024 Lower GI hemoglobin IA Ql (Stl) [facility] Wound Cultureon 06-10-[address] [facility] Comment on above: Performed By: #### M 100.2000, M100.4001, M100.3000 ####[facility] [address] [place], [address] Gram Stainon 06-09-2024 GS LEFT MEDIAN ANKLE GR AM STAIN Gram Stain Rare Gram positive cocci Normal [facility] Comment on above: Performed By: #### M 100.2000, M100.4001, M100.3000 ####[facility] [address] [place], [address] Absolute lymphocyte countOrd ered By: Sosa Silva on 06-08-2024 Lymphocytes Auto (Unsp spec) [#/Vol] 0.42 10*3/uL Low 0.83-4.51 [facility] Absolute neutrophil countOrd ered By: Sosa Silva on 06-08-2024 Neutrophils (Bld) [#/Vol] 5.7 10*3/uL 2.0-7.7 [facility] Absolute neutrophil count 5.7 X10^3/uL 2.0-7.7 [facility] Anaerobic cultureOrdered By: Rasta Mazariegos on 06-08-2024 Bacteria identified Anaer cx Nom (Unsp spec) No anaerobic bacteria isolated. [facility] Automated lymphocyte count a s percentage of total leukocytesOrdered By: Sosa Silva on 06-08-2024 Lymphocytes/100 WBC Auto (Unsp spec) 6.4 % Low 19-41 [facility] Bacteria identified Anaer cx Nom (Unsp spec)Ordered By: Rasta Mazariegos on 06-08-2024 Anaerobic culture No anaerobic bacteri a isolated. [facility] Basophil percentageOrdered B y: Sosa Silva on 06-08-2024 Basophils/100 WBC (Bld) 0.2 % 0-1 [facility] Basophil percentage 0.2 % 0-1 [facility] CBC W/Diff, Automatedon - Absolute Lymph 0.42 X10 3/uL Low 0.83-4.51 [facility] Comment on above: Performed By: #### L 100.0100 ####[facility] [address] [place], [address] Absolute Neut 5.7 X10 3/uL Normal 2.0-7.7 [facility] Comment on above: Performed By: #### L 100.0100 ####[facility] [address] [place], [address] Basophils/100 WBC (Bld) 0.2 % Normal 0-1 [facility] Comment on above: Performed By: #### L 100.0100 ####[facility] [address] [place], [address] Eosinophils/100 WBC (Bld) 0.8 % Normal 0-5 [facility] Comment on above: Performed By: #### L 100.0100 ####[facility] [address] [place], [address] Erythrocyte distribution width (RBC) [Ratio] 16.5 % High 11.6-14.6 [facility] Comment on above: Performed By: #### L 100.0100 ####[facility] [address] [place], [address] Hematocrit (Bld) [Volume fraction] 26.7 % Low 40-54 [facility] Comment on above: Performed By: #### L 100.0100 ####[facility] [address] [place], [address] Hemoglobin (Bld) [Mass/Vol] 8.2 g/dL Low 13.0-16.5 [facility] Comment on above: Performed By: #### L 100.0100 ####[facility] [address] [place], [address] IG% 0.800 Normal 0.0-0.9 [facility] Comment on above: Result Comment: IG% - Immature Granulocytes (promyelocytes, myelocytes andmetamyelocytes) > 1% indicates that a LEFT SHIFT is Present. Performed By: #### L 100.0100 ####[facility] [address] [place], [address] Lymphocytes/100 WBC (Bld) 6.4 % Low 19-41 [facility] Comment on above: Performed By: #### L 100.0100 ####[facility] [address] [place], [address] MCH (RBC) [Entitic mass] 27.9 pg Normal 27.0-32.0 [facility] Comment on above: Performed By: #### L 100.0100 ####[facility] [address] [place], [address] MCHC (RBC) [Mass/Vol] 30.7 g/dL Low 32-36 [facility] Comment on above: Performed By: #### L 100.0100 ####[facility] [address] [place], [address] MCV (RBC) [Entitic vol] 90.8 fL Normal 80-94 [facility] Comment on above: Performed By: #### L 100.0100 ####[facility] [address] [place], [address] Monocytes/100 WBC (Bld) 5.8 % Normal 0-10 [facility] Comment on above: Performed By: #### L 100.0100 ####[facility] [address] [place], [address] Neutrophils/100 WBC (Bld) 86.0 % High 47-70 [facility] Comment on above: Performed By: #### L 100.0100 ####[facility] [address] [place], [address] Nucleated RBC (Bld) [#/Vol] 0.3 10*3/uL Normal 0-5 [facility] Comment on above: Performed By: #### L 100.0100 ####[facility] [address] [place], [address] Platelet mean volume (Bld) [Entitic vol] 9.3 fL Normal 6.2-12.0 [facility] Comment on above: Performed By: #### L 100.0100 ####[facility] [address] [place], [address] Platelets (Bld) [#/Vol] 190 10*3/uL Normal 150-450 [facility] Comment on above: Performed By: #### L 100.0100 ####[facility] [address] [place], [address] RBC (Bld) [#/Vol] 2.94 10*6/uL Low 4.6-6.2 [facility] Comment on above: Performed By: #### L 100.0100 ####[facility] [address] [place], [address] RDW SD 53.4 fl High 35.1-43.9 [facility] Comment on above: Performed By: #### L 100.0100 ####[facility] [address] [place], [address] WBC (Bld) [#/Vol] 6.6 10*3/uL Normal 4.4-11.0 [facility] Comment on above: Performed By: #### L 100.0100 ####[facility] [address] [place], [address] Eosinophil percentageOrdered By: Sosa Silva on 06-08-2024 Eosinophils/100 WBC (Bld) 0.8 % 0-5 [facility] Eosinophil percentage 0.8 % 0-5 [facility] Erythrocyte distribution wid th (RBC) [Ratio]Ordered By: Sosa Silva on 06-08-2024 Erythrocyte distribution width ratio 16.5 % High 11.6-14.6 [facility] Erythrocyte distribution width standard deviation 53.4 fl High 35.1-43.9 [facility] Erythrocyte distribution wid th ratioOrdered By: Sosa Silva on 06-08-2024 Erythrocyte distribution width (RBC) [Ratio] 16.5 % High 11.6-14.6 [facility] Erythrocyte distribution wid th standard deviationOrdered By: Sosa Silva on 06-08-2024 Erythrocyte distribution width (RBC) [Ratio] 53.4 fl High 35.1-43.9 [facility] Gastroenterology Visit Repor ton 06-08-2024 Gastroenterology Visit Report Normal [facility] Gram stainOrdered By: Wayne Mazariegos on 06-08-2024 Microscopic observation Gram stain Nom (Unsp spec) [facility] Hematocrit Auto (Bld) [Volum e fraction]Ordered By: Sosa Silva on 06-08-2024 Hematocrit (Bld) [Volume fraction] 26.7 % Low 40-54 [facility] Automated blood hematocrit (percentage) 26.7 % Low 40-54 [facility] Hemoglobin measurementOrdere d By: Sosa Silva on 06-08-2024 Hemoglobin (Bld) [Mass/Vol] 8.2 g/dL Low 13.0-16.5 [facility] Hemoglobin measurement 8.2 g/dL Low 13.0-16.5 [facility] Immature granulocytes/100 WB C Auto (Bld)Ordered By: Sosa Silva on 06-08-2024 Immature granulocytes/100 WBC (Bld) 0.800 % 0.0-0.9 [facility] Comment on above: IG% - Immature Granu locytes (promyelocytes, myelocytes and metamyelocytes) > 1% indicates that a LEFT SHIFT is Present. Automated immature granulocyte percentage 0.800 % 0.0-0.9 [facility] Lymphocytes Auto (Unsp spec) [#/Vol]Ordered By: Sosa Silva on 06-08-2024 Absolute lymphocyte count 0.42 X10^3/uL Low 0.83-4.51 [facility] Lymphocytes/100 WBC Auto (Un sp spec)Ordered By: Sosa Silva on 06-08-2024 Automated lymphocyte count as percentage of total leukocytes 6.4 % Low 19-41 [facility] MCV (RBC) [Entitic vol]Order ed By: Sosa Silva on 06-08-2024 MCV (mean corpuscular volume) determination 90.8 fL 80-94 [facility] MCV (mean corpuscular volume ) determinationOrdered By: Sosa Silva on 06-08-2024 MCV (RBC) [Entitic vol] 90.8 fL 80-94 [facility] Mean corpuscular hemoglobin (MCH) determinationOrdered By: Sosa Silva on 06-08-2024 MCH (RBC) [Entitic mass] 27.9 pg 27.0-32.0 [facility] Mean corpuscular hemoglobin (MCH) determination 27.9 pg 27.0-32.0 [facility] Mean corpuscular hemoglobin concentration (MCHC) determinationOrdered By: Sosa Silva on 06-08-2024 MCHC (RBC) [Mass/Vol] 30.7 g/dL Low 32-36 [facility] Mean corpuscular hemoglobin concentration (MCHC) determination 30.7 g/dL Low 32-36 [facility] Mean platelet volume determi nationOrdered By: Sosa Silva on 06-08-2024 Platelet mean volume (Bld) [Entitic vol] 9.3 fL 6.2-12.0 [facility] Mean platelet volume determination 9.3 fl 6.2-12.0 [facility] Monocyte percentageOrdered B y: Sosa Silva on 06-08-2024 Monocytes/100 WBC (Bld) 5.8 % 0-10 [facility] Monocyte percentage 5.8 % 0-10 [facility] Neutrophil percentageOrdered By: Sosa Silva on 06-08-2024 Neutrophils/100 WBC (Bld) 86.0 % High 47-70 [facility] Neutrophil percentage 86.0 % High 47-70 [facility] Nucleated red blood cell per centageOrdered By: Sosa Silva on 06-08-2024 Nucleated RBC/100 WBC (Bld) [Ratio] 0.3 % 0-5 [facility] Nucleated red blood cell percentage 0.3 % 0-5 [facility] Platelet countOrdered By: Paula Silva on 06-08-2024 Platelets (Bld) [#/Vol] 190 10*3/uL 150-450 [facility] Platelet count 190 K/mm3 150-450 [facility] RBC Auto (Bld) [#/Vol]Ordere d By: Sosa Silva on 06-08-2024 RBC (Bld) [#/Vol] 2.94 10*6/uL Low 4.6-6.2 [facility] Automated blood erythrocyte count 2.94 M/mm3 Low 4.6-6.2 [facility] Routine wound cultureOrdered By: Rasta Mazareigos on 06-08-2024 Routine wound culture Staphylococcus aureus Abnormal [facility] Routine wound culture Negative Abnormal [facility] White blood cell (WBC) count Ordered By: Sosa Silva on 06-08-2024 WBC (Bld) [#/Vol] 6.6 10*3/uL 4.4-11.0 [facility] White blood cell (WBC) count 6.6 K/mm3 4.4-11.0 [facility] Basic Metabolic Profile (BMP )on 06-07-2024 BUN Normal 4-19 [facility] Comment on above: Result Comment: Canc elled via OM: Order cancelled - Patient discharged Performed By: #### L 100.0500, L500.2500 ####[facility] [address] [place], [address] BUN/CRE Normal 10-20 [facility] Comment on above: Result Comment: Canc elled via OM: Order cancelled - Patient discharged Performed By: #### L 100.0500, L500.2500 ####[facility] [address] [place], [address] Calcium Normal 7.6-11.0 [facility] Comment on above: Result Comment: Canc elled via OM: Order cancelled - Patient discharged Performed By: #### L 100.0500, L500.2500 ####[facility] [address] [place], [address] CL Normal 98-108 [facility] Comment on above: Result Comment: Canc elled via OM: Order cancelled - Patient discharged Performed By: #### L 100.0500, L500.2500 ####[facility] [address] [place], [address] CO2 Normal 21.0-32.0 [facility] Comment on above: Result Comment: Canc elled via OM: Order cancelled - Patient discharged Performed By: #### L 100.0500, L500.2500 ####[facility] [address] [place], [address] CREAT,SERUM Normal 0.70-1.20 [facility] Comment on above: Result Comment: Canc elled via OM: Order cancelled - Patient discharged Performed By: #### L 100.0500, L500.2500 ####[facility] [address] [place], [address] eGFR Normal >60 [facility] Comment on above: Result Comment: Canc elled via OM: Order cancelled - Patient discharged Performed By: #### L 100.0500, L500.2500 ####[facility] [address] [place], [address] GAP Normal 5-15 [facility] Comment on above: Result Comment: Canc elled via OM: Order cancelled - Patient discharged Performed By: #### L 100.0500, L500.2500 ####[facility] [address] [place], [address] GLU Normal 70-99 [facility] Comment on above: Result Comment: Canc elled via OM: Order cancelled - Patient discharged Performed By: #### L 100.0500, L500.2500 ####[facility] [address] [place], [address] Potassium Normal 3.3-5.1 [facility] Comment on above: Result Comment: Canc elled via OM: Order cancelled - Patient discharged Performed By: #### L 100.0500, L500.2500 ####[facility] [address] [place], [address] Basic Metabolic Profile (BMP) Normal 133-145 [facility] Comment on above: Result Comment: Canc elled via OM: Order cancelled - Patient discharged Performed By: #### L 100.0500, L500.2500 ####[facility] [address] [place], [address] CBC-Complete Blood Cnt No Di ffon 06-07-2024 HCT Normal 40-54 [facility] Comment on above: Result Comment: Canc elled via OM: Order cancelled - Patient discharged Performed By: #### L 100.0500, L500.2500 ####[facility] [address] [place], [address] HGB Normal 13.0-16.5 [facility] Comment on above: Result Comment: Canc elled via OM: Order cancelled - Patient discharged Performed By: #### L 100.0500, L500.2500 ####[facility] [address] [place], [address] MCH Normal 27.0-32.0 [facility] Comment on above: Result Comment: Canc elled via OM: Order cancelled - Patient discharged Performed By: #### L 100.0500, L500.2500 ####[facility] [address] [place], [address] MCHC Normal 32-36 [facility] Comment on above: Result Comment: Canc elled via OM: Order cancelled - Patient discharged Performed By: #### L 100.0500, L500.2500 ####[facility] [address] [place], [address] MCV Normal 80-94 [facility] Comment on above: Result Comment: Canc elled via OM: Order cancelled - Patient discharged Performed By: #### L 100.0500, L500.2500 ####[facility] [address] [place], [address] PLT Normal 150-450 [facility] Comment on above: Result Comment: Canc elled via OM: Order cancelled - Patient discharged Performed By: #### L 100.0500, L500.2500 ####[facility] [address] [place], [address] RBC Normal 4.6-6.2 [facility] Comment on above: Result Comment: Canc elled via OM: Order cancelled - Patient discharged Performed By: #### L 100.0500, L500.2500 ####[facility] [address] [place], [address] RDW CV Normal 11.6-14.6 [facility] Comment on above: Result Comment: Canc elled via OM: Order cancelled - Patient discharged Performed By: #### L 100.0500, L500.2500 ####[facility] [address] [place], [address] RDW SD Normal 35.1-43.9 [facility] Comment on above: Result Comment: Canc elled via OM: Order cancelled - Patient discharged Performed By: #### L 100.0500, L500.2500 ####[facility] [address] [place], [address] WBC Normal 4.4-11.0 [facility] Comment on above: Result Comment: Canc elled via OM: Order cancelled - Patient discharged Performed By: #### L 100.0500, L500.2500 ####[facility] [address] [place], [address] CNPNon 06-07-2024 CNPN Normal [facility] Basic Metabolic Profile (BMP )on 06-06-2024 BUN Normal 4-19 [facility] Comment on above: Result Comment: Canc elled via OM: Order cancelled - Patient discharged Performed By: #### L 100.0500, L500.2500 ####[facility] [address] [place], [address] BUN/CRE Normal 10-20 [facility] Comment on above: Result Comment: Canc elled via OM: Order cancelled - Patient discharged Performed By: #### L 100.0500, L500.2500 ####[facility] [address] [place], [address] Calcium Normal 7.6-11.0 [facility] Comment on above: Result Comment: Canc elled via OM: Order cancelled - Patient discharged Performed By: #### L 100.0500, L500.2500 ####[facility] [address] [place], [address] CL Normal 98-108 [facility] Comment on above: Result Comment: Canc elled via OM: Order cancelled - Patient discharged Performed By: #### L 100.0500, L500.2500 ####[facility] [address] [place], [address] CO2 Normal 21.0-32.0 [facility] Comment on above: Result Comment: Canc elled via OM: Order cancelled - Patient discharged Performed By: #### L 100.0500, L500.2500 ####[facility] [address] [place], [address] CREAT,SERUM Normal 0.70-1.20 [facility] Comment on above: Result Comment: Canc elled via OM: Order cancelled - Patient discharged Performed By: #### L 100.0500, L500.2500 ####[facility] [address] [place], [address] eGFR Normal >60 [facility] Comment on above: Result Comment: Canc elled via OM: Order cancelled - Patient discharged Performed By: #### L 100.0500, L500.2500 ####[facility] [address] [place], [address] GAP Normal 5-15 [facility] Comment on above: Result Comment: Canc elled via OM: Order cancelled - Patient discharged Performed By: #### L 100.0500, L500.2500 ####[facility] [address] [place], [address] GLU Normal 70-99 [facility] Comment on above: Result Comment: Canc elled via OM: Order cancelled - Patient discharged Performed By: #### L 100.0500, L500.2500 ####[facility] [address] [place], [address] Potassium Normal 3.3-5.1 [facility] Comment on above: Result Comment: Canc elled via OM: Order cancelled - Patient discharged Performed By: #### L 100.0500, L500.2500 ####[facility] [address] [place], [address] Basic Metabolic Profile (BMP) Normal 133-145 [facility] Comment on above: Result Comment: Canc elled via OM: Order cancelled - Patient discharged Performed By: #### L 100.0500, L500.2500 ####[facility] [address] [place], [address] CBC-Complete Blood Cnt No Di ffon 06-06-2024 HCT Normal 40-54 [facility] Comment on above: Result Comment: Canc elled via OM: Order cancelled - Patient discharged Performed By: #### L 100.0500, L500.2500 ####[facility] [address] [place], [address] HGB Normal 13.0-16.5 [facility] Comment on above: Result Comment: Canc elled via OM: Order cancelled - Patient discharged Performed By: #### L 100.0500, L500.2500 ####[facility] [address] [place], [address] MCH Normal 27.0-32.0 [facility] Comment on above: Result Comment: Canc elled via OM: Order cancelled - Patient discharged Performed By: #### L 100.0500, L500.2500 ####[facility] [address] [place], [address] MCHC Normal 32-36 [facility] Comment on above: Result Comment: Canc elled via OM: Order cancelled - Patient discharged Performed By: #### L 100.0500, L500.2500 ####[facility] [address] [place], [address] MCV Normal 80-94 [facility] Comment on above: Result Comment: Canc elled via OM: Order cancelled - Patient discharged Performed By: #### L 100.0500, L500.2500 ####[facility] [address] [place], [address] PLT Normal 150-450 [facility] Comment on above: Result Comment: Canc elled via OM: Order cancelled - Patient discharged Performed By: #### L 100.0500, L500.2500 ####[facility] [address] [place], [address] RBC Normal 4.6-6.2 [facility] Comment on above: Result Comment: Canc elled via OM: Order cancelled - Patient discharged Performed By: #### L 100.0500, L500.2500 ####[facility] [address] [place], [address] RDW CV Normal 11.6-14.6 [facility] Comment on above: Result Comment: Canc elled via OM: Order cancelled - Patient discharged Performed By: #### L 100.0500, L500.2500 ####[facility] [address] [place], [address] RDW SD Normal 35.1-43.9 [facility] Comment on above: Result Comment: Canc elled via OM: Order cancelled - Patient discharged Performed By: #### L 100.0500, L500.2500 ####[facility] [address] [place], [address] WBC Normal 4.4-11.0 [facility] Comment on above: Result Comment: Canc elled via OM: Order cancelled - Patient discharged Performed By: #### L 100.0500, L500.2500 ####[facility] [address] [place], [address] Culture, Anaerobic Any Sourc mariah 06-06-2024 CUAN DO GRAM STAIN L MED ANKLE No anaerobic bacteria isolated. Normal [facility] Comment on above: Performed By: #### M 100.3000, M100.4001, M100.2000 ####[facility] [address] [place], [address] Anion gap [Moles/Vol]Ordered By: Jacob Suazo on 06-05-2024 Anion gap in Serum or Plasma 8 5-15 [facility] Anion gap in Serum or Plasma Ordered By: Jacob Suazo on 06-05-2024 Anion gap [Moles/Vol] 8 mmol/L 5-15 [facility] BUN/creatinine ratioOrdered By: Jacob Suazo on 06-05-2024 Urea nitrogen/Creatinine [Mass ratio] 31.9 mg/mg High 10-20 [facility] BUN/creatinine ratio 31.9 RATIO High 10-20 [facility] Basic Metabolic Profile (BMP )on 06-05-2024 BUN/CRE 31.9 RATIO High 10-20 [facility] Comment on above: Performed By: #### L 100.0500, L500.2500 ####[facility] [address] [place], [address] Calcium [Mass/Vol] 7.7 mg/dL Normal 7.6-11.0 [facility] Comment on above: Performed By: #### L 100.0500, L500.2500 ####[facility] [address] [place], [address] Chloride [Moles/Vol] 110 mmol/L High 98-108 [facility] Comment on above: Performed By: #### L 100.0500, L500.2500 ####[facility] [facility] [address] [place], [address] CO2 [Moles/Vol] 21.6 mmol/L Normal 21.0-32.0 [facility] Comment on above: Performed By: #### L 100.0500, L500.2500 ####[facility] [address] [place], [address] Creatinine [Mass/Vol] 0.65 mg/dL Low 0.70-1.20 [facility] Comment on above: Performed By: #### L 100.0500, L500.2500 ####[facility] [address] [place], [address] ECRCL 76.82 ml/min Normal 50-250 [facility] Comment on above: Performed By: #### L 100.0500, L500.2500 ####[facility] [address] [place], [address] GAP 8 Normal 5-15 [facility] Comment on above: Performed By: #### L 100.0500, L500.2500 ####[facility] [address] [place], [address] GFR/1.73 sq M.predicted among non-blacks MDRD (S/P/Bld) [Vol rate/Area] 95 mL/min/{1.73_m2} Normal >60 [facility] Comment on above: Result Comment: mL/m in/1.73m2 CKD-EPI Creatinine Equation (2020) Performed By: #### L 100.0500, L500.2500 ####[facility] [address] [place], [address] Glucose [Mass/Vol] 93 mg/dL Normal 70-99 [facility] Comment on above: Performed By: #### L 100.0500, L500.2500 ####[facility] [address] [place], [address] Potassium [Moles/Vol] 3.9 mmol/L Normal 3.3-5.1 [facility] Comment on above: Performed By: #### L 100.0500, L500.2500 ####[facility] [address] [place], [address] Sodium [Moles/Vol] 139 mmol/L Normal 133-145 [facility] Comment on above: Performed By: #### L 100.0500, L500.2500 ####[facility] [address] [place], [address] Urea nitrogen [Mass/Vol] 21 mg/dL High 4-19 [facility] Comment on above: Performed By: #### L 100.0500, L500.2500 ####[facility] [address] [place], [address] CBC-Complete Blood Cnt No Di ffon 06-05-2024 Erythrocyte distribution width (RBC) [Ratio] 16.9 % High 11.6-14.6 [facility] Comment on above: Performed By: #### L 100.0500, L500.2500 ####[facility] [address] [place], [address] Hematocrit (Bld) [Volume fraction] 26.4 % Low 40-54 [facility] Comment on above: Performed By: #### L 100.0500, L500.2500 ####[facility] [address] [place], [address] Hemoglobin (Bld) [Mass/Vol] 8.2 g/dL Low 13.0-16.5 [facility] Comment on above: Performed By: #### L 100.0500, L500.2500 ####[facility] [address] [place], [address] MCH (RBC) [Entitic mass] 27.6 pg Normal 27.0-32.0 [facility] Comment on above: Performed By: #### L 100.0500, L500.2500 ####[facility] [address] [place], [address] MCHC (RBC) [Mass/Vol] 31.1 g/dL Low 32-36 [facility] Comment on above: Performed By: #### L 100.0500, L500.2500 ####[facility] [address] [place], [address] MCV (RBC) [Entitic vol] 88.9 fL Normal 80-94 [facility] Comment on above: Performed By: #### L 100.0500, L500.2500 ####[facility] [address] [place], [address] Platelet mean volume (Bld) [Entitic vol] 9.0 fL Normal 6.2-12.0 [facility] Comment on above: Performed By: #### L 100.0500, L500.2500 ####[facility] [address] [place], [address] Platelets (Bld) [#/Vol] 170 10*3/uL Normal 150-450 [facility] Comment on above: Performed By: #### L 100.0500, L500.2500 ####[facility] [address] [place], [address] RBC (Bld) [#/Vol] 2.97 10*6/uL Low 4.6-6.2 [facility] Comment on above: Performed By: #### L 100.0500, L500.2500 ####[facility] [address] [place], [address] RDW SD 54.4 fl High 35.1-43.9 [facility] Comment on above: Performed By: #### L 100.0500, L500.2500 ####[facility] [address] [place], [address] WBC (Bld) [#/Vol] 12.7 10*3/uL High 4.4-11.0 [facility] Comment on above: Performed By: #### L 100.0500, L500.2500 ####[facility] [address] [place], [address] Calcium [Mass/Vol]Ordered By : Jacob Suazo on 06-05-2024 Serum or plasma calcium measurement (mass/volume) 7.7 mg/dL 7.6-11.0 [facility] Carbon dioxide, total [Moles /volume] in Central venous bloodOrdered By: Jacob Suazo on 06-05-2024 CO2 [Moles/Vol] 21.6 mmol/L 21.0-32.0 [facility] Carbon dioxide, total [Moles/volume] in Central venous blood 21.6 mmol/L 21.0-32.0 [facility] Chloride assayOrdered By: Neto Suazo on 06-05-2024 Chloride [Moles/Vol] 110 mmol/L High 98-108 [facility] Chloride assay 110 mmol/L High 98-108 [facility] Creatinine [Mass/Vol]Ordered By: Jacob Suazo on 06-05-2024 Serum creatinine measurement (mass/volume) 0.65 mg/dL Low 0.70-1.20 [facility] Discharge Instructionon 04-0 Discharge Instruction Normal [facility] Erythrocyte distribution wid th (RBC) [Ratio]Ordered By: Jacob Suazo on 06-05-2024 Erythrocyte distribution width ratio 16.9 % High 11.6-14.6 [facility] Erythrocyte distribution width standard deviation 54.4 fl High 35.1-43.9 [facility] Erythrocyte distribution wid th ratioOrdered By: Jacob Suazo on 06-05-2024 Erythrocyte distribution width (RBC) [Ratio] 16.9 % High 11.6-14.6 [facility] Erythrocyte distribution wid th standard deviationOrdered By: Jacob Suazo on 06-05-2024 Erythrocyte distribution width (RBC) [Ratio] 54.4 fl High 35.1-43.9 [facility] Estimation of creatinine marybel aranceOrdered By: Jacob Suazo on 06-05-2024 Estimation of creatinine clearance 76.82 ml/min 50-250 [facility] GFR/1.73 sq M.predicted matilda g non-blacks MDRD (S/P/Bld) [Vol rate/Area]Ordered By: Jacob Suazo on 06-05-2024 Glomerular filtration rate (GFR) estimation/1.73 sq m using serum, plasma, or whole b [address] >60 [facility] Glomerular filtration rate ( GFR) estimation/1.73 sq m using serum, plasma, or whole bOrdered By: Jacob Suazo on 06-05-2024 GFR/1.73 sq M.predicted among non-blacks MDRD (S/P/Bld) [Vol rate/Area] 95 mL/min/{1.73_m2} >60 [facility] Comment on above: mL/min/1.73m2 CKD-EP I Creatinine Equation (2020) Glucose [Mass/Vol]Ordered By : Jacob Suazo on 06-05-2024 Serum glucose measurement (mass/volume) 93 mg/dL 70-99 [facility] Hematocrit Auto (Bld) [Volum e fraction]Ordered By: Jacob Suazo on 06-05-2024 Hematocrit (Bld) [Volume fraction] 26.4 % Low 40-54 [facility] Automated blood hematocrit (percentage) 26.4 % Low 40-54 [facility] Hemoglobin measurementOrdere d By: Jacob Suazo on 06-05-2024 Hemoglobin (Bld) [Mass/Vol] 8.2 g/dL Low 13.0-16.5 [facility] Hemoglobin measurement 8.2 g/dL Low 13.0-16.5 [facility] MCV (RBC) [Entitic vol]Order ed By: Jacob Suazo on 06-05-2024 MCV (mean corpuscular volume) determination 88.9 fL 80-94 [facility] MCV (mean corpuscular volume ) determinationOrdered By: Jacob Suazo on 06-05-2024 MCV (RBC) [Entitic vol] 88.9 fL 80-94 [facility] Mean corpuscular hemoglobin (MCH) determinationOrdered By: Jacob Suazo on 06-05-2024 MCH (RBC) [Entitic mass] 27.6 pg 27.0-32.0 [facility] Mean corpuscular hemoglobin (MCH) determination 27.6 pg 27.0-32.0 [facility] Mean corpuscular hemoglobin concentration (MCHC) determinationOrdered By: Jacob Suazo on 06-05-2024 MCHC (RBC) [Mass/Vol] 31.1 g/dL Low 32-36 [facility] Mean corpuscular hemoglobin concentration (MCHC) determination 31.1 g/dL Low 32-36 [facility] Mean platelet volume determi nationOrdered By: Jacob Suazo on 06-05-2024 Platelet mean volume (Bld) [Entitic vol] 9.0 fL 6.2-12.0 [facility] Mean platelet volume determination 9.0 fl 6.2-12.0 [facility] Platelet countOrdered By: Neto Suazo on 06-05-2024 Platelets (Bld) [#/Vol] 170 10*3/uL 150-450 [facility] Platelet count 170 K/mm3 150-450 [facility] Potassium (Unsp spec) [Mass/ Vol]Ordered By: Jacob Suazo on 06-05-2024 Potassium measurement (mass/volume) 3.9 mmol/L 3.3-5.1 [facility] Potassium measurement (mass/ volume)Ordered By: Jacob Suazo on 06-05-2024 Potassium (Unsp spec) [Mass/Vol] 3.9 mmol/L 3.3-5.1 [facility] RBC Auto (Bld) [#/Vol]Ordere d By: Jacob Suazo on 06-05-2024 RBC (Bld) [#/Vol] 2.97 10*6/uL Low 4.6-6.2 [facility] Automated blood erythrocyte count 2.97 M/mm3 Low 4.6-6.2 [facility] Serum creatinine measurement (mass/volume)Ordered By: Jacob Suazo on 06-05-2024 Creatinine [Mass/Vol] 0.65 mg/dL Low 0.70-1.20 [facility] Serum glucose measurement (m ass/volume)Ordered By: Jacob Suazo on 06-05-2024 Glucose [Mass/Vol] 93 mg/dL 70-99 [facility] Serum or plasma calcium ry urement (mass/volume)Ordered By: Jacob Suazo on 06-05-2024 Calcium [Mass/Vol] 7.7 mg/dL 7.6-11.0 [facility] Serum or plasma urea nitroge n measurement (mass/volume)Ordered By: Jacob Suazo on 06-05-2024 Urea nitrogen [Mass/Vol] 21 mg/dL High 06-18 [facility] Sodium levelOrdered By: Terrell Suazo on 06-05-2024 Sodium [Moles/Vol] 139 mmol/L 133-145 [facility] Sodium level 139 mmol/L 133-145 [facility] Urea nitrogen [Mass/Vol]Orde red By: Jacob Suazo on 06-05-2024 Serum or plasma urea nitrogen measurement (mass/volume) 21 mg/dL High 06-18 [facility] White blood cell (WBC) count Ordered By: Jacob Suazo on 06-05-2024 WBC (Bld) [#/Vol] 12.7 10*3/uL High 4.4-11.0 [facility] White blood cell (WBC) count 12.7 K/mm3 High 4.4-11.0 [facility] Absolute lymphocyte countOrd ered By: Elizabethangelique Santamaria on 06-04-2024 Lymphocytes Auto (Unsp spec) [#/Vol] 0.66 10*3/uL Low 0.83-4.51 [facility] Absolute neutrophil countOrd ered By: Elizabeth Santamaria on 06-04-2024 Neutrophils (Bld) [#/Vol] 11.8 10*3/uL High 2.0-7.7 [facility] Absolute neutrophil count 11.8 X10^3/uL High 2.0-7.7 [facility] Automated lymphocyte count a s percentage of total leukocytesOrdered By: Elizabethangelique Santamaria on 06-04-2024 Lymphocytes/100 WBC Auto (Unsp spec) 4.9 % Low 19-41 [facility] Basic Metabolic Profile (BMP )on 06-04-2024 BUN/CRE 38.3 RATIO High 10-20 [facility] Comment on above: Performed By: #### L 100.0100, L500.2500 ####[facility] [address] [place], [address] Calcium [Mass/Vol] 7.7 mg/dL Normal 7.6-11.0 [facility] Comment on above: Performed By: #### L 100.0100, L500.2500 ####[facility] [address] [place], [address] Chloride [Moles/Vol] 108 mmol/L Normal 98-108 [facility] Comment on above: Performed By: #### L 100.0100, L500.2500 ####[facility] [address] [place], [address] CO2 [Moles/Vol] 23.5 mmol/L Normal 21.0-32.0 [facility] Comment on above: Performed By: #### L 100.0100, L500.2500 ####[facility] [address] [place], [address] Creatinine [Mass/Vol] 1.03 mg/dL Normal 0.70-1.20 [facility] Comment on above: Performed By: #### L 100.0100, L500.2500 ####[facility] [address] [place], [address] ECRCL 59.67 ml/min Normal 50-250 [facility] Comment on above: Performed By: #### L 100.0100, L500.2500 ####[facility] [address] [place], [address] GAP 8 Normal 5-15 [facility] Comment on above: Performed By: #### L 100.0100, L500.2500 ####[facility] [address] [place], [address] GFR/1.73 sq M.predicted among non-blacks MDRD (S/P/Bld) [Vol rate/Area] 73 mL/min/{1.73_m2} Normal >60 [facility] Comment on above: Result Comment: mL/m in/1.73m2 CKD-EPI Creatinine Equation (2020) Performed By: #### L 100.0100, L500.2500 ####[facility] [address] [place], [address] Glucose [Mass/Vol] 124 mg/dL High 70-99 [facility] Comment on above: Performed By: #### L 100.0100, L500.2500 ####[facility] [address] [place], [address] Potassium [Moles/Vol] 4.7 mmol/L Normal 3.3-5.1 [facility] Comment on above: Performed By: #### L 100.0100, L500.2500 ####[facility] [address] [place], [address] Sodium [Moles/Vol] 139 mmol/L Normal 133-145 [facility] Comment on above: Performed By: #### L 100.0100, L500.2500 ####[facility] [address] [place], [address] Urea nitrogen [Mass/Vol] 39 mg/dL High 4-19 [facility] Comment on above: Performed By: #### L 100.0100, L500.2500 ####[facility] [address] [place], [address] Basophil percentageOrdered B y: Elizabeth Santamaria on 06-04-2024 Basophils/100 WBC (Bld) 0.1 % 0-1 [facility] CBC W/Diff, Automatedon Absolute Lymph 0.66 X10 3/uL Low 0.83-4.51 [facility] Comment on above: Performed By: #### L 100.0100, L500.2500 ####[facility] [address] [place], [address] Absolute Neut 11.8 X10 3/uL High 2.0-7.7 [facility] Comment on above: Performed By: #### L 100.0100, L500.2500 ####[facility] [address] [place], [address] Basophils/100 WBC (Bld) 0.1 % Normal 0-1 [facility] Comment on above: Performed By: #### L 100.0100, L500.2500 ####[facility] [address] [place], [address] Eosinophils/100 WBC (Bld) 0.1 % Normal 0-5 [facility] Comment on above: Performed By: #### L 100.0100, L500.2500 ####[facility] [address] [place], [address] Erythrocyte distribution width (RBC) [Ratio] 16.4 % High 11.6-14.6 [facility] Comment on above: Performed By: #### L 100.0100, L500.2500 ####[facility] [address] [place], [address] Hematocrit (Bld) [Volume fraction] 29.3 % Low 40-54 [facility] Comment on above: Performed By: #### L 100.0100, L500.2500 ####[facility] [address] [place], [address] Hemoglobin (Bld) [Mass/Vol] 9.2 g/dL Low 13.0-16.5 [facility] Comment on above: Performed By: #### L 100.0100, L500.2500 ####[facility] [address] [place], [address] IG% 1.100 High 0.0-0.9 [facility] Comment on above: Result Comment: IG% - Immature Granulocytes (promyelocytes, myelocytes andmetamyelocytes) > 1% indicates that a LEFT SHIFT is Present. Performed By: #### L 100.0100, L500.2500 ####[facility] [address] [place], [address] Lymphocytes/100 WBC (Bld) 4.9 % Low 19-41 [facility] Comment on above: Performed By: #### L 100.0100, L500.2500 ####[facility] [address] [place], [address] MCH (RBC) [Entitic mass] 27.5 pg Normal 27.0-32.0 [facility] Comment on above: Performed By: #### L 100.0100, L500.2500 ####[facility] [address] [place], [address] MCHC (RBC) [Mass/Vol] 31.4 g/dL Low 32-36 [facility] Comment on above: Performed By: #### L 100.0100, L500.2500 ####[facility] [address] [place], [address] MCV (RBC) [Entitic vol] 87.7 fL Normal 80-94 [facility] Comment on above: Performed By: #### L 100.0100, L500.2500 ####[facility] [address] [place], [address] Monocytes/100 WBC (Bld) 6.6 % Normal 0-10 [facility] Comment on above: Performed By: #### L 100.0100, L500.2500 ####[facility] [address] [place], [address] Neutrophils/100 WBC (Bld) 87.2 % High 47-70 [facility] Comment on above: Performed By: #### L 100.0100, L500.2500 ####[facility] [address] [place], [address] Nucleated RBC (Bld) [#/Vol] 0.1 10*3/uL Normal 0-5 [facility] Comment on above: Performed By: #### L 100.0100, L500.2500 ####[facility] [address] [place], [address] Platelet mean volume (Bld) [Entitic vol] 8.8 fL Normal 6.2-12.0 [facility] Comment on above: Performed By: #### L 100.0100, L500.2500 ####[facility] [address] [place], [address] Platelets (Bld) [#/Vol] 186 10*3/uL Normal 150-450 [facility] Comment on above: Performed By: #### L 100.0100, L500.2500 ####[facility] [address] [place], [address] RBC (Bld) [#/Vol] 3.34 10*6/uL Low 4.6-6.2 [facility] Comment on above: Performed By: #### L 100.0100, L500.2500 ####[facility] [address] [place], [address] RDW SD 52.3 fl High 35.1-43.9 [facility] Comment on above: Performed By: #### L 100.0100, L500.2500 ####[facility] [address] [place], [address] WBC (Bld) [#/Vol] 13.5 10*3/uL High 4.4-11.0 [facility] Comment on above: Performed By: #### L 100.0100, L500.2500 ####[facility] [address] [place], [address] EGD Reporton 06-04-[address] [facility] Eosinophil percentageOrdered By: Elizabeth Santamaria on 06-04-2024 Eosinophils/100 WBC (Bld) 0.1 % 0-5 [facility] Eosinophil percentage 0.1 % 0-5 [facility] Immature granulocytes/100 WB C Auto (Bld)Ordered By: Elizabeth Santamaria on 06-04-2024 Immature granulocytes/100 WBC (Bld) 1.100 % High 0.0-0.9 [facility] Comment on above: IG% - Immature Granu locytes (promyelocytes, myelocytes and metamyelocytes) > 1% indicates that a LEFT SHIFT is Present. Automated immature granulocyte percentage 1.100 % High 0.0-0.9 [facility] Lymphocytes Auto (Unsp spec) [#/Vol]Ordered By: Elizabeth Santamaria on 06-04-2024 Absolute lymphocyte count 0.66 X10^3/uL Low 0.83-4.51 [facility] Lymphocytes/100 WBC Auto (Un sp spec)Ordered By: Elizabeth Santamaria on 06-04-2024 Automated lymphocyte count as percentage of total leukocytes 4.9 % Low 19-41 [facility] MR/CON.PCM.GIon 06-04-2024 MR/CON.PCM.GI Normal [facility] MR/POSTOP.ANEon 06-04-2024 MR/POSTOP.ANE Normal [facility] MR/UZLCGLDY0dw 06-04-2024 MR/POSTOPAN2 Normal [facility] Monocyte percentageOrdered B y: Elizabeth Santamaria on 06-04-2024 Monocytes/100 WBC (Bld) 6.6 % 0-10 [facility] Monocyte percentage 6.6 % 0-10 [facility] Neutrophil percentageOrdered By: Elizabeth Montesinosparris on 06-04-2024 Neutrophils/100 WBC (Bld) 87.2 % High 47-70 [facility] Neutrophil percentage 87.2 % High 47-70 [facility] Nucleated red blood cell per centageOrdered By: Elizabeth Hina on 06-04-2024 Nucleated RBC/100 WBC (Bld) [Ratio] 0.1 % 0-5 [facility] Wound Cultureon 06-04-2024 WC DO GRAM STAIN L MED ANKLE #1 Susceptibility not normally performed on this organism. Wound Culture Wound Culture Corynebacterium striatum Amount Growth Rare Normal [facility] Comment on above: Performed By: #### M 100.3000, M100.4001, M100.2000 ####[facility] [address] [place], [address] 12 Lead EKGon 06-03-20[address] [facility] Absolute neutrophil countOrd ered By: Aj Martinez on 06-03-2024 Absolute neutrophil count 18.5 X10^3/uL High 2.0-7.7 [facility] Anion gap [Moles/Vol]Ordered By: Aj Martinez on 06-03-2024 Anion gap in Serum or Plasma 11 5-15 [facility] BRCon 06-03-[address] [facility] Comment on above: Result Comment: [id number] ON RC TRANSFUSED 06/03/[id number] ON RC TRANSFUSED 06/03/242322 Performed By: #### B ####[facility] [address] [place], [address] BUN/creatinine ratioOrdered By: Aj Martinez on 06-03-2024 BUN/creatinine ratio 30.8 RATIO High 10-20 [facility] Basic Metabolic Profile (BMP )on 06-03-2024 BUN/CRE 30.8 RATIO High 10-20 [facility] Comment on above: Performed By: #### L 100.0100, L500.2500 ####[facility] [address] [place], [address] Calcium [Mass/Vol] 9.0 mg/dL Normal 7.6-11.0 [facility] Comment on above: Performed By: #### L 100.0100, L500.2500 ####[facility] [address] [place], [address] Chloride [Moles/Vol] 102 mmol/L Normal 98-108 [facility] Comment on above: Performed By: #### L 100.0100, L500.2500 ####[facility] [address] [place], [address] CO2 [Moles/Vol] 25.7 mmol/L Normal 21.0-32.0 [facility] Comment on above: Performed By: #### L 100.0100, L500.2500 ####[facility] [address] [place], [address] Creatinine [Mass/Vol] 1.10 mg/dL Normal 0.70-1.20 [facility] Comment on above: Performed By: #### L 100.0100, L500.2500 ####[facility] [address] [place], [address] ECRCL 55.95 ml/min Normal 50-250 [facility] Comment on above: Performed By: #### L 100.0100, L500.2500 ####[facility] [address] [place], [address] GAP 11 Normal 5-15 [facility] Comment on above: Performed By: #### L 100.0100, L500.2500 ####[facility] [address] [place], [address] GFR/1.73 sq M.predicted among non-blacks MDRD (S/P/Bld) [Vol rate/Area] 67 mL/min/{1.73_m2} Normal >60 [facility] Comment on above: Result Comment: mL/m in/1.73m2 CKD-EPI Creatinine Equation (2020) Performed By: #### L 100.0100, L500.2500 ####[facility] [address] [place], [address] Glucose [Mass/Vol] 144 mg/dL High 70-99 [facility] Comment on above: Performed By: #### L 100.0100, L500.2500 ####[facility] [address] [place], [address] Potassium [Moles/Vol] 5.2 mmol/L High 3.3-5.1 [facility] Comment on above: Performed By: #### L 100.0100, L500.2500 ####[facility] [address] [place], [address] Sodium [Moles/Vol] 139 mmol/L Normal 133-145 [facility] Comment on above: Performed By: #### L 100.0100, L500.2500 ####[facility] [address] [place], [address] Urea nitrogen [Mass/Vol] 34 mg/dL High 4-19 [facility] Comment on above: Performed By: #### L 100.0100, L500.2500 ####[facility] [address] [place], [address] Basophil percentageOrdered B y: Aj Martinez on 06-03-2024 Basophil percentage 0.1 % 0-1 [facility] CBC W/Diff, Automatedon 04-0 4-5 Absolute Lymph 0.73 X10 3/uL Low 0.83-4.51 [facility] Comment on above: Performed By: #### L 100.0100 ####[facility] [address] [place], [address] Absolute Neut 15.4 X10 3/uL High 2.0-7.7 [facility] Comment on above: Performed By: #### L 100.0100 ####[facility] [address] [place], [address] Basophils/100 WBC (Bld) 0.1 % Normal 0-1 [facility] Comment on above: Performed By: #### L 100.0100 ####[facility] [address] [place], [address] Eosinophils/100 WBC (Bld) 0.0 % Normal 0-5 [facility] Comment on above: Performed By: #### L 100.0100 ####[facility] [address] [place], [address] Erythrocyte distribution width (RBC) [Ratio] 16.2 % High 11.6-14.6 [facility] Comment on above: Performed By: #### L 100.0100 ####[facility] [address] [place], [address] Hematocrit (Bld) [Volume fraction] 28.1 % Low 40-54 [facility] Comment on above: Performed By: #### L 100.0100 ####[facility] [address] [place], [address] Hemoglobin (Bld) [Mass/Vol] 8.4 g/dL Low 13.0-16.5 [facility] Comment on above: Performed By: #### L 100.0100 ####[facility] [address] [place], [address] IG% 1.600 High 0.0-0.9 [facility] Comment on above: Result Comment: IG% - Immature Granulocytes (promyelocytes, myelocytes andmetamyelocytes) > 1% indicates that a LEFT SHIFT is Present. Performed By: #### L 100.0100 ####[facility] [address] [place], [address] Lymphocytes/100 WBC (Bld) 4.2 % Low 19-41 [facility] Comment on above: Performed By: #### L 100.0100 ####[facility] [address] [place], [address] MCH (RBC) [Entitic mass] 27.3 pg Normal 27.0-32.0 [facility] Comment on above: Performed By: #### L 100.0100 ####[facility] [address] [place], [address] MCHC (RBC) [Mass/Vol] 29.9 g/dL Low 32-36 [facility] Comment on above: Performed By: #### L 100.0100 ####[facility] [address] [place], [address] MCV (RBC) [Entitic vol] 91.2 fL Normal 80-94 [facility] Comment on above: Performed By: #### L 100.0100 ####[facility] [address] [place], [address] Monocytes/100 WBC (Bld) 5.4 % Normal 0-10 [facility] Comment on above: Performed By: #### L 100.0100 ####[facility] [address] [place], [address] Neutrophils/100 WBC (Bld) 88.7 % High 47-70 [facility] Comment on above: Performed By: #### L 100.0100 ####[facility] [address] [place], [address] Nucleated RBC (Bld) [#/Vol] 0.1 10*3/uL Normal 0-5 [facility] Comment on above: Performed By: #### L 100.0100 ####[facility] [address] [place], [address] Platelet mean volume (Bld) [Entitic vol] 9.3 fL Normal 6.2-12.0 [facility] Comment on above: Performed By: #### L 100.0100 ####[facility] [address] [place], [address] Platelets (Bld) [#/Vol] 277 10*3/uL Normal 150-450 [facility] Comment on above: Performed By: #### L 100.0100 ####[facility] [address] [place], [address] RBC (Bld) [#/Vol] 3.08 10*6/uL Low 4.6-6.2 [facility] Comment on above: Performed By: #### L 100.0100 ####[facility] [address] [place], [address] RDW SD 53.1 fl High 35.1-43.9 [facility] Comment on above: Performed By: #### L 100.0100 ####[facility] [address] [place], [address] WBC (Bld) [#/Vol] 17.3 10*3/uL High 4.4-11.0 [facility] Comment on above: Performed By: #### L 100.0100 ####[facility] [address] [place], [address] Absolute Lymph 0.65 X10 3/uL Low 0.83-4.51 [facility] Comment on above: Performed By: #### L 100.0100, L500.2500 ####[facility] [address] [place], [address] Absolute Neut 18.5 X10 3/uL High 2.0-7.7 [facility] Comment on above: Performed By: #### L 100.0100, L500.2500 ####[facility] [address] [place], [address] Basophils/100 WBC (Bld) 0.1 % Normal 0-1 [facility] Comment on above: Performed By: #### L 100.0100, L500.2500 ####[facility] [address] [place], [address] Eosinophils/100 WBC (Bld) 0.0 % Normal 0-5 [facility] Comment on above: Performed By: #### L 100.0100, L500.2500 ####[facility] [address] [place], [address] Erythrocyte distribution width (RBC) [Ratio] 16.1 % High 11.6-14.6 [facility] Comment on above: Performed By: #### L 100.0100, L500.2500 ####[facility] [address] [place], [address] Hematocrit (Bld) [Volume fraction] 34.1 % Low 40-54 [facility] Comment on above: Performed By: #### L 100.0100, L500.2500 ####[facility] [address] [place], [address] Hemoglobin (Bld) [Mass/Vol] 10.2 g/dL Low 13.0-16.5 [facility] Comment on above: Performed By: #### L 100.0100, L500.2500 ####[facility] [address] [place], [address] IG% 1.500 High 0.0-0.9 [facility] Comment on above: Result Comment: IG% - Immature Granulocytes (promyelocytes, myelocytes andmetamyelocytes) > 1% indicates that a LEFT SHIFT is Present. Performed By: #### L 100.0100, L500.2500 ####[facility] [address] [place], [address] Lymphocytes/100 WBC (Bld) 3.2 % Low 19-41 [facility] Comment on above: Performed By: #### L 100.0100, L500.2500 ####[facility] [address] [place], [address] MCH (RBC) [Entitic mass] 26.8 pg Low 27.0-32.0 [facility] Comment on above: Performed By: #### L 100.0100, L500.2500 ####[facility] [address] [place], [address] MCHC (RBC) [Mass/Vol] 29.9 g/dL Low 32-36 [facility] Comment on above: Performed By: #### L 100.0100, L500.2500 ####[facility] [address] [place], [address] MCV (RBC) [Entitic vol] 89.5 fL Normal 80-94 [facility] Comment on above: Performed By: #### L 100.0100, L500.2500 ####[facility] [address] [place], [address] Monocytes/100 WBC (Bld) 3.7 % Normal 0-10 [facility] Comment on above: Performed By: #### L 100.0100, L500.2500 ####[facility] [address] [place], [address] Neutrophils/100 WBC (Bld) 91.5 % High 47-70 [facility] Comment on above: Performed By: #### L 100.0100, L500.2500 ####[facility] [address] [place], [address] Nucleated RBC (Bld) [#/Vol] 0 10*3/uL Normal 0-5 [facility] Comment on above: Performed By: #### L 100.0100, L500.2500 ####[facility] [address] [place], [address] Platelet mean volume (Bld) [Entitic vol] 9.6 fL Normal 6.2-12.0 [facility] Comment on above: Performed By: #### L 100.0100, L500.2500 ####[facility] [address] [place], [address] Platelets (Bld) [#/Vol] 364 10*3/uL Normal 150-450 [facility] Comment on above: Performed By: #### L 100.0100, L500.2500 ####[facility] [address] [place], [address] RBC (Bld) [#/Vol] 3.81 10*6/uL Low 4.6-6.2 [facility] Comment on above: Performed By: #### L 100.0100, L500.2500 ####[facility] [address] [place], [address] RDW SD 52.9 fl High 35.1-43.9 [facility] Comment on above: Performed By: #### L 100.0100, L500.2500 ####[facility] [address] [place], [address] WBC (Bld) [#/Vol] 20.3 10*3/uL High 4.4-11.0 [facility] Comment on above: Performed By: #### L 100.0100, L500.2500 ####[facility] [address] [place], [address] Calcium [Mass/Vol]Ordered By : Aj Martinez on 06-03-2024 Serum or plasma calcium measurement (mass/volume) 9.0 mg/dL 7.6-11.0 [facility] Carbon dioxide, total [Moles /volume] in Central venous bloodOrdered By: Aj Martinez on 06-03-2024 Carbon dioxide, total [Moles/volume] in Central venous blood 25.7 mmol/L 21.0-32.0 [facility] Chest 1 View (Portable)on Chest 1 View (Portable) Normal [facility] Chloride assayOrdered By: Gómez Martinez on 06-03-2024 Chloride assay 102 mmol/L 98-108 [facility] Creatinine [Mass/Vol]Ordered By: Aj aMrtinez on 06-03-2024 Serum creatinine measurement (mass/volume) 1.10 mg/dL 0.70-1.20 [facility] Emergency Department Summary on 06-03-2024 [address] Normal [facility] Eosinophil percentageOrdered By: Aj Martinez on 06-03-2024 Eosinophil percentage 0.0 % 0-5 [facility] Erythrocyte distribution wid th (RBC) [Ratio]Ordered By: Aj Martinez on 06-03-2024 Erythrocyte distribution width ratio 16.1 % High 11.6-14.6 [facility] Erythrocyte distribution width standard deviation 52.9 fl High 35.1-43.9 [facility] Estimation of creatinine marybel aranceOrdered By: Aj Martinez on 06-03-2024 Estimation of creatinine clearance 55.95 ml/min 50-250 [facility] GFR/1.73 sq M.predicted matilda g non-blacks MDRD (S/P/Bld) [Vol rate/Area]Ordered By: Aj Martinez on 06-03-2024 Glomerular filtration rate (GFR) estimation/1.73 sq m using serum, plasma, or whole b [address] >60 [facility] Glucose [Mass/Vol]Ordered By : Aj Martinez on 06-03-2024 Serum glucose measurement (mass/volume) 144 mg/dL High 70-99 [facility] Gram Stainon 06-03-2024 GS DO GRAM STAIN L MED ANKLE Gram Stain No organisms seen No cells seen Normal [facility] Comment on above: Performed By: #### M 100.3000, M100.4001, M100.2000 ####[facility] [address] [place], [address] H AND P Exam - Hospitaliston 06-03-2024 H&P Exam - Hospitalist Normal [facility] Hematocrit Auto (Bld) [Volum e fraction]Ordered By: Aj Martinez on 06-03-2024 Automated blood hematocrit (percentage) 34.1 % Low 40-54 [facility] Hemoglobin measurementOrdere d By: Aj Martinez on 06-03-2024 Hemoglobin measurement 10.2 g/dL Low 13.0-16.5 [facility] Immature granulocytes/100 WB C Auto (Bld)Ordered By: Aj Martinez on 06-03-2024 Automated immature granulocyte percentage 1.500 % High 0.0-0.9 [facility] Lymphocytes Auto (Unsp spec) [#/Vol]Ordered By: Aj Martinez on 06-03-2024 Absolute lymphocyte count 0.65 X10^3/uL Low 0.83-4.51 [facility] Lymphocytes/100 WBC Auto (Un sp spec)Ordered By: Aj Martinez on 06-03-2024 Automated lymphocyte count as percentage of total leukocytes 3.2 % Low 19-41 [facility] MCV (RBC) [Entitic vol]Order ed By: Aj Martinez on 06-03-2024 MCV (mean corpuscular volume) determination 89.5 fL 80-94 [facility] Mean corpuscular hemoglobin (MCH) determinationOrdered By: Aj Martinez on 06-03-2024 Mean corpuscular hemoglobin (MCH) determination 26.8 pg Low 27.0-32.0 [facility] Mean corpuscular hemoglobin concentration (MCHC) determinationOrdered By: Aj Martinez on 06-03-2024 Mean corpuscular hemoglobin concentration (MCHC) determination 29.9 g/dL Low 32-36 [facility] Mean platelet volume determi nationOrdered By: Aj Martinez on 06-03-2024 Mean platelet volume determination 9.6 fl 6.2-12.0 [facility] Monocyte percentageOrdered B y: Aj Martinez on 06-03-2024 Monocyte percentage 3.7 % 0-10 [facility] Neutrophil percentageOrdered By: Aj Martinez on 06-03-2024 Neutrophil percentage 91.5 % High 47-70 [facility] Nucleated red blood cell per centageOrdered By: Aj Martinez on 06-03-2024 Nucleated red blood cell percentage 0 % 0-5 [facility] Platelet countOrdered By: Gómez Martinez on 06-03-2024 Platelet count 364 K/mm3 150-450 [facility] Potassium (Unsp spec) [Mass/ Vol]Ordered By: Aj Martinez on 06-03-2024 Potassium measurement (mass/volume) 5.2 mmol/L High 3.3-5.1 [facility] RBC Auto (Bld) [#/Vol]Ordere d By: Aj Martinez on 06-03-2024 Automated blood erythrocyte count 3.81 M/mm3 Low 4.6-6.2 [facility] Sodium levelOrdered By: Filemon Martinez on 06-03-2024 Sodium level 139 mmol/L 133-145 [facility] Type AND Screenon 06-03-2024 Ab SCREEN GEL Negative Normal [facility] Comment on above: Order Comment: HGI Performed By: #### B TS ####[facility] [address] [place], [address] Urea nitrogen [Mass/Vol]Orde red By: Aj Martinez on 06-03-2024 Serum or plasma urea nitrogen measurement (mass/volume) 34 mg/dL High 4-19 [facility] White blood cell (WBC) count Ordered By: Aj Martinez on 06-03-2024 White blood cell (WBC) count 20.3 K/mm3 High 4.4-11.0 [facility] CNPNon 06-02-2024 CNPN Normal [facility] Anaerobic cultureOrdered By: Rasta Mazariegos on 06-01-2024 Bacteria identified Anaer cx Nom (Unsp spec) No anaerobic bacteria isolated. [facility] Bacteria identified Anaer cx Nom (Unsp spec)Ordered By: Rasta Mazariegos on 06-01-2024 Anaerobic culture No anaerobic bacteri a isolated. [facility] CNOVon 06-01-2024 CNOV Normal [facility] Gram stainOrdered By: Wayne Mazariegos on 06-01-2024 Microscopic observation Gram stain Nom (Unsp spec) [facility] Routine wound cultureOrdered By: Rasta Mazariegos on 06-01-2024 Routine wound culture Corynebacterium striatum Abnormal [facility]tr History AND Physic diogo 06-01-2024 Wound Ctr History & Physical Normal [facility] Culture, Blood (WB)on 2024 CUB Blood cultures x2, f rom two different sites No growth in [address] [facility] Comment on above: Performed By: #### M 200.1000 ####[facility] [address] [place], [address] CNPNon 05-26-2024 CNPN Normal [facility] Anion gap [Moles/Vol]Ordered By: Jacob Suazo on 05-23-2024 Anion gap in Serum or Plasma 10 -15 [facility] Anion gap in Serum or Plasma Ordered By: Jacob Suazo on 05-23-2024 Anion gap [Moles/Vol] 10 mmol/L 5-15 [facility] BUN/creatinine ratioOrdered By: Jacob Suazo on 05-23-2024 Urea nitrogen/Creatinine [Mass ratio] 24.8 mg/mg High 10-20 [facility] BUN/creatinine ratio 24.8 RATIO High 10-20 [facility] Basic Metabolic Profile (BMP )on 05-23-2024 BUN/CRE 24.8 RATIO High 10-20 [facility] Comment on above: Performed By: #### L 100.0500, L500.2500 ####[facility] [address] [place], [address] Calcium [Mass/Vol] 9.2 mg/dL Normal 7.6-11.0 [facility] Comment on above: Performed By: #### L 100.0500, L500.2500 ####[facility] [address] [place], [address] Chloride [Moles/Vol] 105 mmol/L Normal 98-108 [facility] Comment on above: Performed By: #### L 100.0500, L500.2500 ####[facility] [address] [place], [address] CO2 [Moles/Vol] 25.9 mmol/L Normal 21.0-32.0 [facility] Comment on above: Performed By: #### L 100.0500, L500.2500 ####[facility] [address] [place], [address] Creatinine [Mass/Vol] 0.61 mg/dL Low 0.70-1.20 [facility] Comment on above: Performed By: #### L 100.0500, L500.2500 ####[facility] [address] [place], [address] ECRCL 78.56 ml/min Normal 50-250 [facility] Comment on above: Performed By: #### L 100.0500, L500.2500 ####[facility] [address] [place], [address] GAP 10 Normal 5-15 [facility] Comment on above: Performed By: #### L 100.0500, L500.2500 ####[facility] [address] [place], [address] GFR/1.73 sq M.predicted among non-blacks MDRD (S/P/Bld) [Vol rate/Area] 97 mL/min/{1.73_m2} Normal >60 [facility] Comment on above: Result Comment: mL/m in/1.73m2 CKD-EPI Creatinine Equation (2020) Performed By: #### L 100.0500, L500.2500 ####[facility] [address] [place], [address] Glucose [Mass/Vol] 165 mg/dL High 70-99 [facility] Comment on above: Performed By: #### L 100.0500, L500.2500 ####[facility] [address] [place], [address] Potassium [Moles/Vol] 4.2 mmol/L Normal 3.3-5.1 [facility] Comment on above: Performed By: #### L 100.0500, L500.2500 ####[facility] [address] [place], [address] Sodium [Moles/Vol] 140 mmol/L Normal 133-145 [facility] Comment on above: Performed By: #### L 100.0500, L500.2500 ####[facility] [address] [place], [address] Urea nitrogen [Mass/Vol] 15 mg/dL Normal 4-19 [facility] Comment on above: Performed By: #### L 100.0500, L500.2500 ####[facility] [address] [place], [address] CBC-Complete Blood Cnt No Di ffon 05-23-2024 Erythrocyte distribution width (RBC) [Ratio] 16.3 % High 11.6-14.6 [facility] Comment on above: Performed By: #### L 100.0500, L500.2500 ####[facility] [address] [place], [address] Hematocrit (Bld) [Volume fraction] 32.5 % Low 40-54 [facility] Comment on above: Performed By: #### L 100.0500, L500.2500 ####[facility] [address] [place], [address] Hemoglobin (Bld) [Mass/Vol] 9.9 g/dL Low 13.0-16.5 [facility] Comment on above: Performed By: #### L 100.0500, L500.2500 ####[facility] [address] [place], [address] MCH (RBC) [Entitic mass] 27.3 pg Normal 27.0-32.0 [facility] Comment on above: Performed By: #### L 100.0500, L500.2500 ####[facility] [address] [place], [address] MCHC (RBC) [Mass/Vol] 30.5 g/dL Low 32-36 [facility] Comment on above: Performed By: #### L 100.0500, L500.2500 ####[facility] [address] [place], [address] MCV (RBC) [Entitic vol] 89.8 fL Normal 80-94 [facility] Comment on above: Performed By: #### L 100.0500, L500.2500 ####[facility] [address] [place], [address] Platelet mean volume (Bld) [Entitic vol] 9.1 fL Normal 6.2-12.0 [facility] Comment on above: Performed By: #### L 100.0500, L500.2500 ####[facility] [address] [place], [address] Platelets (Bld) [#/Vol] 219 10*3/uL Normal 150-450 [facility] Comment on above: Performed By: #### L 100.0500, L500.2500 ####[facility] [address] [place], [address] RBC (Bld) [#/Vol] 3.62 10*6/uL Low 4.6-6.2 [facility] Comment on above: Performed By: #### L 100.0500, L500.2500 ####[facility] [address] [place], [address] RDW SD 53.4 fl High 35.1-43.9 [facility] Comment on above: Performed By: #### L 100.0500, L500.2500 ####[facility] [address] [place], [address] WBC (Bld) [#/Vol] 8.6 10*3/uL Normal 4.4-11.0 [facility] Comment on above: Performed By: #### L 100.0500, L500.2500 ####[facility] [address] [place], [address] Calcium [Mass/Vol]Ordered By : Jacob Suazo on 05-23-2024 Serum or plasma calcium measurement (mass/volume) 9.2 mg/dL 7.6-11.0 [facility] Carbon dioxide, total [Moles /volume] in Central venous bloodOrdered By: Jacob Suazo on 05-23-2024 CO2 [Moles/Vol] 25.9 mmol/L 21.0-32.0 [facility] Carbon dioxide, total [Moles/volume] in Central venous blood 25.9 mmol/L 21.0-32.0 [facility] Chloride assayOrdered By: Neto Suazo on 05-23-2024 Chloride [Moles/Vol] 105 mmol/L 98-108 [facility] Chloride assay 105 mmol/L 98-108 [facility] Creatinine [Mass/Vol]Ordered By: Jacob Suazo on 05-23-2024 Serum creatinine measurement (mass/volume) 0.61 mg/dL Low 0.70-1.20 [facility] Electrocardiogram reportOrde red By: Steven Kauffman on 05-23-2024 EKG study [facility] [address] [place] [address] 12 Lead EKG 05/22/24 1251 MR#: [id number] Acct: [id number] Name: OSWALDO CORLEY Bruno Rep #:[id number] : 1940 83 From: Steven Kauffman MD Attending Dr: Dr. Mei Cortes, DO Status: ADM IN Ordering Dr: Randy Londono MD Date: 05/22 Location: [facility] Sex: M C Admitted: 05/22/24 Test Reason [...] Abnormal ECG Confirmed by NITHYA SOTO, STEVEN ([id number]), brands editor YINA HERNANDEZ ([id number]) on :20:59 AM Referred By: Confirmed By: STEVEN KAUFFMAN MD 05/23/24820 Date _ Steven Kauffman MD CC: Dr. Mei Cummins MD; Dr. Mei Cortes DO; Dr. Randy Londono MD ~ Signed [facility] Other Phone: Erythrocyte distribution wid th (RBC) [Ratio]Ordered By: Jacob Suazo on 05-23-2024 Erythrocyte distribution width ratio 16.3 % High 11.6-14.6 [facility] Erythrocyte distribution width standard deviation 53.4 fl High 35.1-43.9 [facility] Erythrocyte distribution wid th ratioOrdered By: Jacob Suazo on 05-23-2024 Erythrocyte distribution width (RBC) [Ratio] 16.3 % High 11.6-14.6 [facility] Erythrocyte distribution wid th standard deviationOrdered By: Jacob Suazo on 05-23-2024 Erythrocyte distribution width (RBC) [Entitic vol] 53.4 fL High 35.1-43.9 [facility] Erythrocyte distribution width (RBC) [Ratio] 53.4 fl High 35.1-43.9 [facility] Estimation of creatinine marybel aranceOrdered By: Jacob Suazo on 05-23-2024 Estimated Creatinine Clearance Calc 78.56 ml/min 50-250 [facility] Estimation of creatinine clearance 78.56 ml/min 50-250 [facility] GFR/1.73 sq M.predicted matilda g non-blacks MDRD (S/P/Bld) [Vol rate/Area]Ordered By: Jacob Suazo on 05-23-2024 Estimated GFR (MDRD) Non-Af Amer 97 >60 [facility] Comment on above: mL/min/1.73m2 CKD-EP I Creatinine Equation (2020) Glomerular filtration rate (GFR) estimation/1.73 sq m using serum, plasma, or whole b 97 >60 [facility] Glomerular filtration rate ( GFR) estimation/1.73 sq m using serum, plasma, or whole bOrdered By: Jacob Suazo on 05-23-2024 GFR/1.73 sq M.predicted among non-blacks MDRD (S/P/Bld) [Vol rate/Area] 97 mL/min/{1.73_m2} >60 [facility] Glucose [Mass/Vol]Ordered By : Jacob Suazo on 05-23-2024 Serum glucose measurement (mass/volume) 165 mg/dL High 70-99 [facility] Hematocrit Auto (Bld) [Volum e fraction]Ordered By: Jacob Suazo on 05-23-2024 Hematocrit (Bld) [Volume fraction] 32.5 % Low 40-54 [facility] Automated blood hematocrit (percentage) 32.5 % Low 40-54 [facility] Hemoglobin measurementOrdere d By: Jacob Suazo on 05-23-2024 Hemoglobin (Bld) [Mass/Vol] 9.9 g/dL Low 13.0-16.5 [facility] Hemoglobin measurement 9.9 g/dL Low 13.0-16.5 [facility] L. pneumophila Ag Ql (U)Orde red By: Jacob Suazo on 05-23-2024 Legionella Antigen [facility] Lactic Acidon 05-23-2024 Lactate [Moles/Vol] 2.7 mmol/L Invalid Interpretation Code 0.0-2.0 [facility] Comment on above: Order Comment: Y Result Comment: Crit ical Result(s) Called at: by:??Results read back bysame.Critical Result(s) Called at 05/22/2024-14:04 by Jovon Parsons??Results read back by same. AMENDED REPORT 05/23/24 0012 LACTIC ACID previously reported as: 2.7 *H mmol/LCritical Result(s) Called at: by:??Results read back bysame. Performed By: #### L 100.0100, L500.4050, L503.6005 ####[facility] [address] [place], [place], [id number] Legionella Antigen Urineon 0 05-23-[address] [facility] Comment on above: Performed By: #### M 300.4500, M300.4600 ####[facility] [address] [place], [place], [id number] MCV (RBC) [Entitic vol]Order ed By: Jacob Suazo on 05-23-2024 MCV (mean corpuscular volume) determination 89.8 fL 80-94 [facility] MCV (mean corpuscular volume ) determinationOrdered By: Jacob Suazo on 05-23-2024 MCV (RBC) [Entitic vol] 89.8 fL 80-94 [facility] Mean corpuscular hemoglobin (MCH) determinationOrdered By: Jacob Suazo on 05-23-2024 MCH (RBC) [Entitic mass] 27.3 pg 27.0-32.0 [facility] Mean corpuscular hemoglobin (MCH) determination 27.3 pg 27.0-32.0 [facility] Mean corpuscular hemoglobin concentration (MCHC) determinationOrdered By: Jacob Suazo on 05-23-2024 MCHC (RBC) [Mass/Vol] 30.5 g/dL Low 32-36 [facility] Mean corpuscular hemoglobin concentration (MCHC) determination 30.5 g/dL Low 32-36 [facility] Mean platelet volume determi nationOrdered By: Jacob Suazo on 05-23-2024 Platelet mean volume (Bld) [Entitic vol] 9.1 fL 6.2-12.0 [facility] Mean platelet volume determination 9.1 fl 6.2-12.0 [facility] Platelet countOrdered By: Neto Suazo on 05-23-2024 Platelets (Bld) [#/Vol] 219 10*3/uL 150-450 [facility] Platelet count 219 K/mm3 150-450 [facility] Potassium (Unsp spec) [Mass/ Vol]Ordered By: Jacob Suazo on 05-23-2024 Potassium [Moles/Vol] 4.2 mmol/L 3.3-5.1 [facility] Potassium measurement (mass/volume) 4.2 mmol/L 3.3-5.1 [facility] Potassium measurement (mass/ volume)Ordered By: Jacob Suazo on 05-23-2024 Potassium (Unsp spec) [Mass/Vol] 4.2 mmol/L 3.3-5.1 [facility] RBC Auto (Bld) [#/Vol]Ordere d By: Jacob Suazo on 05-23-2024 RBC (Bld) [#/Vol] 3.62 10*6/uL Low 4.6-6.2 [facility] Automated blood erythrocyte count 3.62 M/mm3 Low 4.6-6.2 [facility] Serum creatinine measurement (mass/volume)Ordered By: Jacob Suazo on 05-23-2024 Creatinine [Mass/Vol] 0.61 mg/dL Low 0.70-1.20 [facility] Serum glucose measurement (m ass/volume)Ordered By: Jacob Suazo on 05-23-2024 Glucose [Mass/Vol] 165 mg/dL High 70-99 [facility] Serum or plasma calcium ry urement (mass/volume)Ordered By: Jacob Suazo on 05-23-2024 Calcium [Mass/Vol] 9.2 mg/dL 7.6-11.0 [facility] Serum or plasma urea nitroge n measurement (mass/volume)Ordered By: Jacob Suazo on 05-23-2024 Urea nitrogen [Mass/Vol] 15 mg/dL 4-19 [facility] Sodium levelOrdered By: Terrell Suazo on 05-23-2024 Sodium [Moles/Vol] 140 mmol/L 133-145 [facility] Sodium level 140 mmol/L 133-145 [facility] Strep pneumoniae Antig(UR,CS F)on 05-23-[address] [facility] Comment on above: Performed By: #### M 300.3741, M300.6475 ####[facility] [address] [place], [place], [id number] Streptococcus pneumoniae ant igen assayOrdered By: Jacob Suazo on 05-23-2024 Streptococcus pneumoniae Antigen (M [facility] Urea nitrogen [Mass/Vol]Orde red By: Jacob Suazo on 05-23-2024 Serum or plasma urea nitrogen measurement (mass/volume) 15 mg/dL 4-19 [facility] Urine Legionella pneumophila antigen detectionOrdered By: Jacob Suazo on 05-23-2024 L. pneumophila Ag Ql (U) [facility] Venous Blood Gason CO2 [Moles/Vol] 34 mmol/L High 23-33 [facility] Comment on above: Order Comment: Manua l results entered by Yulia and verified by EJdxvgqfv03/24/2025 at 0808. Performed By: #### L 9000.0810 ####[facility] [address] [place], [address] [address] [facility] Comment on above: Order Comment: Manua l results entered by Yulia and verified by UHvijqznw35/24/2025 at 0808. Performed By: #### L 9000.0810 ####[facility] [address] [place], [address] O2 Delivery Dev Nasal Can Normal [facility] Comment on above: Order Comment: Manua l results entered by Yulia and verified by UCbpkucyd93/24/2025 at 0808. Performed By: #### L 9000.0810 ####[facility] [address] [place], [address] HCO3 (Bld) [Moles/Vol] 32 mmol/L High 22-26 [facility] Comment on above: Order Comment: Manua l results entered by Yulia and verified by OCbbavjxs86/24/2025 at 0808. Performed By: #### L 9000.0810 ####[facility] [address] [place], [address] VBG BE 7 mmol/L High -1.0-3.5 [facility] Comment on above: Order Comment: Manua l results entered by Yulia and verified by RHiosorpc65/24/2025 at 0808. Performed By: #### L 9000.0810 ####[facility] [address] [place], [address] VBG pCO2 54.3 mmHg High 41-51 [facility] Comment on above: Order Comment: Manua l results entered by Yulia and verified by OJnxobgyq32/24/2025 at 0808. Performed By: #### L 9000.0810 ####[facility] [address] [place], [address] VBG pH 7.38 Normal 7.32-7.42 [facility] Comment on above: Order Comment: Manua l results entered by Yulia and verified by LFqgugamy30/24/2025 at 0808. Performed By: #### L 9000.0810 ####[facility] [address] [place], [address] VBG PO2 25 mmHg Normal 25-40 [facility] Comment on above: Order Comment: Manua l results entered by Yulia and verified by LIucxutdf81/24/2025 at 0808. Performed By: #### L 9000.0810 ####[facility] [address] [place], [address] VBG SO2 43 Low 50-70 [facility] Comment on above: Order Comment: Manua l results entered by Yulia and verified by NTiotdbss71/24/2025 at 0808. Performed By: #### L 9000.0810 ####[facility] [address] [place], [address] Blood Gas Type MARTIN Normal [facility] Comment on above: Order Comment: Manua l results entered by Yulia and verified by VMhecubnw15/24/2025 at 0808. Performed By: #### L 9000.0810 ####[facility] [address] [place], [address] White blood cell (WBC) count Ordered By: Jacob Suazo on 05-23-2024 WBC (Bld) [#/Vol] 8.6 10*3/uL 4.4-11.0 [facility] White blood cell (WBC) count 8.6 K/mm3 4.4-11.0 [facility] 12 Lead EKGon 05-22-20[address] [facility] ALP [Catalytic activity/Vol] Ordered By: Randy Londono on 05-22-2024 Serum or plasma alkaline phosphatase measurement 82 U/L 40-129 [facility] ALT [Catalytic activity/Vol] Ordered By: Randy Londono on 05-22-2024 Serum or plasma alanine aminotransferase (ALT) measurement 12 U/L <47 [facility] Absolute lymphocyte countOrd ered By: Randy Londono on 05-22-2024 Lymphocytes Auto (Unsp spec) [#/Vol] 0.18 10*3/uL Low 0.83-4.51 [facility] Absolute neutrophil countOrd ered By: Ranyd Londono on 05-22-2024 Neutrophils (Bld) [#/Vol] 12.9 10*3/uL High 2.0-7.7 [facility] Absolute neutrophil count 12.9 X10^3/uL High 2.0-7.7 [facility] Albumin [Mass/Vol]Ordered By : Randy Londono on 05-22-2024 Serum or plasma albumin measurement (mass/volume) 3.4 g/dL 3.4-4.8 [facility] Albumin/Globulin [Mass ratio ]Ordered By: Randy Londono on 05-22-2024 Serum or plasma albumin/globulin mass ratio 1.3 RATIO 0.9-2.4 [facility] Anion gap in Serum or Plasma Ordered By: Randy Londono on 05-22-2024 Anion gap [Moles/Vol] 11 mmol/L 5-15 [facility] Automated lymphocyte count a s percentage of total leukocytesOrdered By: Randy Londono on 05-22-2024 Lymphocytes/100 WBC Auto (Unsp spec) 1.3 % Low 19-41 [facility] BUN/creatinine ratioOrdered By: Randy Londono on 05-22-2024 Urea nitrogen/Creatinine [Mass ratio] 21.8 mg/mg High 10-20 [facility] Base excess Calc (BldV) [Mol es/Vol]Ordered By: Mei Cortes on 05-22-2024 Venous Blood Base Excess 7 mmol/L High -1.0-3.5 [facility] Venous blood base excess measurement 7 mmol/L High -1.0-3.5 [facility] Basophil percentageOrdered B y: Randy Londono on 05-22-2024 Basophils/100 WBC (Bld) 0.1 % 0-1 [facility] Bilirubin, totalOrdered By: Randymaxim Londono on 05-22-2024 Bilirubin [Mass/Vol] 0.50 mg/dL 0.00-1.30 [facility] Bilirubin, total 0.50 mg/dL 0.00-1.30 [facility] Blood cultureOrdered By: Randy Londono on 05-22-2024 Bacteria identified Cx Nom (Bld) No growth in [address] [facility] Blood culture No growth in 5 days. [facility] Bacteria identified Cx Nom (Bld) No growth in [address] [facility] Blood culture No growth in 5 days. [facility] CBC W/Diff, Automatedon 05-01 Absolute Lymph 0.18 X10 3/uL Low 0.83-4.51 [facility] Comment on above: Performed By: #### L 100.0100, L500.4050, L503.6005 ####[facility] [address] [place], [address] Absolute Neut 12.9 X10 3/uL High 2.0-7.7 [facility] Comment on above: Performed By: #### L 100.0100, L500.4050, L503.6005 ####[facility] [address] [place], [address] Basophils/100 WBC (Bld) 0.1 % Normal 0-1 [facility] Comment on above: Performed By: #### L 100.0100, L500.4050, L503.6005 ####[facility] [address] [place], [address] Eosinophils/100 WBC (Bld) 0.1 % Normal 0-5 [facility] Comment on above: Performed By: #### L 100.0100, L500.4050, L503.6005 ####[facility] [address] [place], [address] Erythrocyte distribution width (RBC) [Ratio] 16.5 % High 11.6-14.6 [facility] Comment on above: Performed By: #### L 100.0100, L500.4050, L503.6005 ####[facility] [address] [place], [address] Hematocrit (Bld) [Volume fraction] 33.4 % Low 40-54 [facility] Comment on above: Performed By: #### L 100.0100, L500.4050, L503.6005 ####[facility] [address] [place], [address] Hemoglobin (Bld) [Mass/Vol] 10.2 g/dL Low 13.0-16.5 [facility] Comment on above: Performed By: #### L 100.0100, L500.4050, L503.6005 ####[facility] [address] [place], [address] IG% 0.600 Normal 0.0-0.9 [facility] Comment on above: Result Comment: IG% - Immature Granulocytes (promyelocytes, myelocytes andmetamyelocytes) > 1% indicates that a LEFT SHIFT is Present. Performed By: #### L 100.0100, L500.4050, L503.6005 ####[facility] [address] [place], [address] Lymphocytes/100 WBC (Bld) 1.3 % Low 19-41 [facility] Comment on above: Performed By: #### L 100.0100, L500.4050, L503.6005 ####[facility] [address] [place], [address] MCH (RBC) [Entitic mass] 27.3 pg Normal 27.0-32.0 [facility] Comment on above: Performed By: #### L 100.0100, L500.4050, L503.6005 ####[facility] [address] [place], [address] MCHC (RBC) [Mass/Vol] 30.5 g/dL Low 32-36 [facility] Comment on above: Performed By: #### L 100.0100, L500.4050, L503.6005 ####[facility] [address] [place], [address] MCV (RBC) [Entitic vol] 89.5 fL Normal 80-94 [facility] Comment on above: Performed By: #### L 100.0100, L500.4050, L503.6005 ####[facility] [address] [place], [address] Monocytes/100 WBC (Bld) 2.4 % Normal 0-10 [facility] Comment on above: Performed By: #### L 100.0100, L500.4050, L503.6005 ####[facility] [address] [place], [address] Neutrophils/100 WBC (Bld) 95.5 % High 47-70 [facility] Comment on above: Performed By: #### L 100.0100, L500.4050, L503.6005 ####[facility] [address] [place], [address] Nucleated RBC (Bld) [#/Vol] 0 10*3/uL Normal 0-5 [facility] Comment on above: Performed By: #### L 100.0100, L500.4050, L503.6005 ####[facility] [address] [place], [address] Platelet mean volume (Bld) [Entitic vol] 8.9 fL Normal 6.2-12.0 [facility] Comment on above: Performed By: #### L 100.0100, L500.4050, L503.6005 ####[facility] [address] [place], [address] Platelets (Bld) [#/Vol] 197 10*3/uL Normal 150-450 [facility] Comment on above: Performed By: #### L 100.0100, L500.4050, L503.6005 ####[facility] [address] [place], [address] RBC (Bld) [#/Vol] 3.73 10*6/uL Low 4.6-6.2 [facility] Comment on above: Performed By: #### L 100.0100, L500.4050, L503.6005 ####[facility] [address] [place], [address] RDW SD 54.5 fl High 35.1-43.9 [facility] Comment on above: Performed By: #### L 100.0100, L500.4050, L503.6005 ####[facility] [address] [place], [address] WBC (Bld) [#/Vol] 13.5 10*3/uL High 4.4-11.0 [facility] Comment on above: Performed By: #### L 100.0100, L500.4050, L503.6005 ####[facility] [address] [place], [address] CO2 (BldV) [Moles/Vol]Ordere d By: Mei Cortes on 05-22-2024 CO2 [Moles/Vol] 34 mmol/L High 23-33 [facility] Venous blood total carbon dioxide measurement 34 mmol/L High 23-33 [facility] CO2 (BldV) [Partial pressure ]Ordered By: Mei Cortes on 05-22-2024 Bed Mix Venous Bld PCO2 at Pat Temp 54.3 mmHg High 41-51 [facility] Venous blood partial pressure of carbon dioxide measurement 54.3 mmHg High 41-51 [facility] CTA Chest W/WO Contraston CTA Chest W/WO Contrast Normal [facility] Carbon dioxide, total [Moles /volume] in Central venous bloodOrdered By: Randy Londono on 05-22-2024 CO2 [Moles/Vol] 26.4 mmol/L 21.0-32.0 [facility] Chest PA and Lateralon 05-22 Chest PA and Lateral Normal [facility] Chloride assayOrdered By: Nancy Londono on 05-22-2024 Chloride [Moles/Vol] 102 mmol/L 98-108 [facility] Comprehensive Metabolic Prof ilon 05-22-2024 Albumin [Mass/Vol] 3.4 g/dL Normal 3.4-4.8 [facility] Comment on above: Performed By: #### L 100.0100, L500.4050, L503.6005 ####[facility] [address] [place], [address] Albumin/Globulin [Mass ratio] 1.3 {ratio} Normal 0.9-2.4 [facility] Comment on above: Performed By: #### L 100.0100, L500.4050, L503.6005 ####[facility] [address] [place], [address] ALK PHOS 82 U/L Normal 40-129 [facility] Comment on above: Performed By: #### L 100.0100, L500.4050, L503.6005 ####[facility] [address] [place], [address] ALT [Catalytic activity/Vol] 12 U/L Normal <=46 [facility] Comment on above: Performed By: #### L 100.0100, L500.4050, L503.6005 ####[facility] [address] [place], [address] AST [Catalytic activity/Vol] 22 U/L Normal <=37 [facility] Comment on above: Performed By: #### L 100.0100, L500.4050, L503.6005 ####[facility] [address] [place], [address] Bilirubin [Mass/Vol] 0.50 mg/dL Normal 0.00-1.30 [facility] Comment on above: Performed By: #### L 100.0100, L500.4050, L503.6005 ####[facility] [address] [place], [address] BUN/CRE 21.8 RATIO High 10-20 [facility] Comment on above: Performed By: #### L 100.0100, L500.4050, L503.6005 ####[facility] [address] [place], [address] Calcium [Mass/Vol] 9.2 mg/dL Normal 7.6-11.0 [facility] Comment on above: Performed By: #### L 100.0100, L500.4050, L503.6005 ####[facility] [address] [place], [address] Chloride [Moles/Vol] 102 mmol/L Normal 98-108 [facility] Comment on above: Performed By: #### L 100.0100, L500.4050, L503.6005 ####[facility] [address] [place], [address] CO2 [Moles/Vol] 26.4 mmol/L Normal 21.0-32.0 [facility] Comment on above: Performed By: #### L 100.0100, L500.4050, L503.6005 ####[facility] [address] [place], [address] Creatinine [Mass/Vol] 0.75 mg/dL Normal 0.70-1.20 [facility] Comment on above: Performed By: #### L 100.0100, L500.4050, L503.6005 ####[facility] [address] [place], [address] ECRCL 78.56 ml/min Normal 50-250 [facility] Comment on above: Performed By: #### L 100.0100, L500.4050, L503.6005 ####[facility] [address] [place], [address] GAP 11 Normal 5-15 [facility] Comment on above: Performed By: #### L 100.0100, L500.4050, L503.6005 ####[facility] [address] [place], [address] GFR/1.73 sq M.predicted among non-blacks MDRD (S/P/Bld) [Vol rate/Area] 91 mL/min/{1.73_m2} Normal >60 [facility] Comment on above: Result Comment: mL/m in/1.73m2 CKD-EPI Creatinine Equation (2020) Performed By: #### L 100.0100, L500.4050, L503.6005 ####[facility] [address] [place], [address] Globulin (S) [Mass/Vol] 2.7 g/dL Normal 2.2-4.2 [facility] Comment on above: Performed By: #### L 100.0100, L500.4050, L503.6005 ####[facility] [address] [place], [address] Glucose [Mass/Vol] 180 mg/dL High 70-99 [facility] Comment on above: Performed By: #### L 100.0100, L500.4050, L503.6005 ####[facility] [address] [place], [address] Potassium [Moles/Vol] 4.9 mmol/L Normal 3.3-5.1 [facility] Comment on above: Performed By: #### L 100.0100, L500.4050, L503.6005 ####[facility] [address] [place], [address] Sodium [Moles/Vol] 140 mmol/L Normal 133-145 [facility] Comment on above: Performed By: #### L 100.0100, L500.4050, L503.6005 ####[facility] [address] [place], [address] T PROT 6.0 g/dL Normal 5.9-8.4 [facility] Comment on above: Performed By: #### L 100.0100, L500.4050, L503.6005 ####[facility] [address] [place], [address] Urea nitrogen [Mass/Vol] 16 mg/dL Normal 4-19 [facility] Comment on above: Performed By: #### L 100.0100, L500.4050, L503.6005 ####[facility] [address] [place], [address] Emergency Department Summary on 05-22-2024 Emergency Department Summary Normal [facility] Eosinophil [facility]Or[facility]: [facility] Eosinophils/100 WBC (Bld) 0.1 % 0-5 [facility] Eosinophil percentage 0.1 % 0-1 [facility] Erythrocyte distribution wid th ratioOrdered By: Randy Londono on 05-22-2024 Erythrocyte distribution width (RBC) [Ratio] 16.5 % High 11.6-14.6 [facility] Erythrocyte distribution wid th standard deviationOrdered By: Randy Londono on 05-22-2024 Erythrocyte distribution width (RBC) [Entitic vol] 54.5 fL High 35.1-43.9 [facility] Estimation of creatinine marybel aranceOrdered By: Randy Londono on 05-22-2024 Estimated Creatinine Clearance Calc 78.56 ml/min 50-250 [facility] GFR/1.73 sq M.predicted matilda g non-blacks MDRD (S/P/Bld) [Vol rate/Area]Ordered By: Randy Londono on 05-22-2024 Estimated GFR (MDRD) Non-Af Amer 91 >60 [facility] Comment on above: mL/min/1.73m2 CKD-EP I Creatinine Equation (2020) H AND P Exam - Hospitaliston 05-22-2024 H&P Exam - Hospitalist Normal [facility] Hematocrit Auto (Bld) [Volum e fraction]Ordered By: Randy Londono on 05-22-2024 Hematocrit (Bld) [Volume fraction] 33.4 % Low 40-54 [facility] Hemoglobin measurementOrdere d By: Randy Londono on 05-22-2024 Hemoglobin (Bld) [Mass/Vol] 10.2 g/dL Low 13.0-16.5 [facility] Immature granulocytes/100 WB C Auto (Bld)Ordered By: Randy Londono on 05-22-2024 Immature granulocytes/100 WBC (Bld) 0.600 % 0.0-0.9 [facility] Comment on above: IG% - Immature Granu locytes (promyelocytes, myelocytes and metamyelocytes) > 1% indicates that a LEFT SHIFT is Present. Automated immature granulocyte percentage 0.600 % 0.0-0.9 [facility] Influenza virus A and B and SARS-CoV-2 (COVID-19) and Respiratory syncytial virus RNAOrdered By: Randy Londono on 05-22-2024 SARS-CoV-2 (COVID-19) RNA DORYS+probe Ql (Unsp spec) [facility] L503.7505on 05-22-2024 Natriuretic peptide B (Bld) [Mass/Vol] 741 pg/mL Normal <=1800 [facility] Comment on above: Result Comment: Hear t Failure Unlikely: < 300 pg/mLHeart Failure Likely< 50 Years: > 450 pg/mL50-75 Years: > 900 pg/mL>75 Years: > 1800 pg/mL Performed By: #### L 503.7505 ####[facility] [address] [place], [place], [address] L509.7001on 05-22-2024 Procalcitonin 0.49 ng/mL High <=0.10 [facility] Comment on above: Result Comment: Inte rpretation:<0.10-0.25 ng/mL: Antibiotic therapy discouraged. Bacterialinfection unlikely.0.25-0.50 ng/mL: Antibiotic therapy encouraged. Bacterialinfection possible.>0.50 ng/mL: Antibiotic therapy strongly encouraged.Suggestive of presence of bacterial infection.PCT should always be interpreted in the clinical context ofthe patient. Therefore, clinicians should use the PCTresults in conjunction with other laboratory findings andclinical signs of the patient. Performed By: #### L 509.7001 ####[facility] [address] [place], [place], [id number] Laboratory - Chemistry and C hemistry - challengeOrdered By: Randy Londono on 05-22-2024 AST [Catalytic activity/Vol] 22 U/L <38 [facility] Laboratory - Chemistry and C hemistry - challengeOrdered By: Jacob Suazo on 05-22-2024 Natriuretic peptide B (Bld) [Mass/Vol] 741 pg/mL <1800 [facility] Comment on above: Heart Failure Unlike ly: < 300 pg/mLHeart Failure Likely< 50 Years: > 450 pg/mL50-75 Years: > 900 pg/mL>75 Years: > 1800 pg/mL Lactic Acidon 05-22-2024 Lactate [Moles/Vol] 4.6 mmol/L Invalid Interpretation Code 0.0-2.0 [facility] Comment on above: Order Comment: Y Result Comment: Crit ical Result(s) Called at:2327 by: ZACH REYNAGA??Results read back by same. Performed By: #### L 503.6005 ####[facility] [address] [place], [place], [address] Lactate [Moles/Vol] 5.0 mmol/L Invalid Interpretation Code 0.0-2.0 [facility] Comment on above: Order Comment: Y Result Comment: Crit ical Result(s) Called at: 1741 by: JAZMIN LAZCANO??SERENITY HOGAN Results read back by same.Critical Result(s) Called at:1741 by: JAZMIN HOGAN??Results read back by same. AMENDED REPORT 05/22/241808 LACTIC ACID previously reported as: 5.1 *H mmol/LCritical Result(s) Called at: 1741 by: JAZMIN LAZCANO??SERENITY HOGAN Results read back by same. Performed By: #### L 503.6005 ####[facility] [address] [place], [place], [address] Lactic acid measurementOrder ed By: Jacob Suazo on 05-22-2024 Lactate [Moles/Vol] 4.6 mmol/L High 0.0-2.0 [facility] Comment on above: Critical Result(s) C alled at:3455 by: ZACH MOORE TO NORY ARORA Results read back by same. Lactic acid measurement 4.6 mmol/L High 0.0-2.0 [facility] Lactic acid measurementOrder ed By: Randy Londono on 05-22-2024 Lactate [Moles/Vol] 2.7 mmol/L High 0.0-2.0 [facility] Comment on above: Critical Result(s) C alled at: by: Results read back by same. Lymphocytes Auto (Unsp spec) [#/Vol]Ordered By: Randy Londono on 05-22-2024 Lymphocytes (Bld) [#/Vol] 0.18 10*3/uL Low 0.83-4.51 [facility] Absolute lymphocyte count 0.18 X10^3/uL Low 0.83-4.51 [facility] Lymphocytes/100 WBC Auto (Un sp spec)Ordered By: Randy Londono on 05-22-2024 Lymphocytes/100 WBC (Bld) 1.3 % Low 19-41 [facility] Automated lymphocyte count as percentage of total leukocytes 1.3 % Low 19-41 [facility] M100.678on 05-22-2024 M100.678 Pending SARS-CoV-2 (COVID 19) Negative INFLUENZA A Negative INFLUENZA B Negative RSV PCR Negative Normal [facility] Comment on above: Performed By: #### M 100.120 ####[facility] [address] [place], [address] MCV (mean corpuscular volume ) determinationOrdered By: Randy Londono on 05-22-2024 MCV (RBC) [Entitic vol] 89.5 fL 80-94 [facility] Mean corpuscular hemoglobin (MCH) determinationOrdered By: Randymaxim Londono on 05-22-2024 MCH (RBC) [Entitic mass] 27.3 pg 27.0-32.0 [facility] Mean corpuscular hemoglobin concentration (MCHC) determinationOrdered By: Randymaxim Londono on 05-22-2024 MCHC (RBC) [Mass/Vol] 30.5 g/dL Low 32-36 [facility] Mean platelet volume determi nationOrdered By: Randymaxim Londono on 05-22-2024 Platelet mean volume (Bld) [Entitic vol] 8.9 fL 6.2-12.0 [facility] Monocyte percentageOrdered B y: Randy Londono on 05-22-2024 Monocytes/100 WBC (Bld) 2.4 % 0-10 [facility] Monocyte percentage 2.4 % 0-10 [facility] Neutrophil percentageOrdered By: Randymaxim Londono on 05-22-2024 Neutrophils/100 WBC (Bld) 95.5 % High 47-70 [facility] Neutrophil percentage 95.5 % High 47-70 [facility] No Panel InformationOrdered By: Mei Cortes on 05-22-2024 Blood Gas Liter Flow 5.0 [facility] Blood Gas Specimen Type MARTIN [facility] Oxygen Delivery Device Nasal Can [facility] MARTIN [facility] Nasal Can [facility] 5.0 [facility] No Panel InformationOrdered By: Jacob Suazo on 05-22-2024 Procalcitonin 0.49 ng/mL High <0.11 [facility] Comment on above: Interpretation:<0.10 -0.25 ng/mL: [...] signs of the patient. 741 pg/mL <1800 [facility] 0.49 ng/mL High <0.11 [facility] No Panel InformationOrdered By: Randymaxim Londono on 05-22-2024 22 U/L <38 [facility] Nucleated red blood cell per centageOrdered By: Randymaxim Londono on 05-22-2024 Nucleated RBC/100 WBC (Bld) [Ratio] 0 % 0-5 [facility] Nucleated red blood cell percentage 0 % 0-5 [facility] Oxygen (BldV) [Partial press ure]Ordered By: Mei Cortes on 05-22-2024 Venous Blood Partial Pressure O2 25 mmHg 25-40 [facility] Venous blood partial pressure of oxygen measurement 25 mmHg 25-40 [facility] Platelet countOrdered By: Nancy Londono on 05-22-2024 Platelets (Bld) [#/Vol] 197 10*3/uL 150-450 [facility] Potassium (Unsp spec) [Mass/ Vol]Ordered By: Randy Londono on 05-22-2024 Potassium [Moles/Vol] 4.9 mmol/L 3.3-5.1 [facility] RBC Auto (Bld) [#/Vol]Ordere d By: Randy Londono on 05-22-2024 RBC (Bld) [#/Vol] 3.73 10*6/uL Low 4.6-6.2 [facility] RESPIRATORY PANEL MOLECULARo n 05-22-[address] [facility] Comment on above: Performed By: #### M 100.638 ####[facility] [address] [place], [place], [id number] Respiratory pathogens DNA an d RNA panel DORYS+probe (Resp)Ordered By: Jacob Suazo on 05-22-2024 Respiratory Panel (PCR) [facility] Respiratory pathogens detect ion panel by molecular detection methodOrdered By: Jacob Suazo on 05-22-2024 Respiratory pathogens DNA and RNA panel DORYS+probe (Resp) [facility] Serum creatinine measurement (mass/volume)Ordered By: Randy Londono on 05-22-2024 Creatinine [Mass/Vol] 0.75 mg/dL 0.70-1.20 [facility] Serum globulin measurementOr dered By: Randy Londono on 05-22-2024 Globulin (S) [Mass/Vol] 2.7 g/dL 2.2-4.2 [facility] Serum globulin measurement 2.7 g/dL 2.2-4.2 [facility] Serum glucose measurement (m ass/volume)Ordered By: Randy Londono on 05-22-2024 Glucose [Mass/Vol] 180 mg/dL High 70-99 [facility] Serum or plasma alanine pierre otransferase (ALT) measurementOrdered By: Randy Londono on 05-22-2024 ALT [Catalytic activity/Vol] 12 U/L <47 [facility] Serum or plasma albumin ry urement (mass/volume)Ordered By: Randy Londono on 05-22-2024 Albumin [Mass/Vol] 3.4 g/dL 3.4-4.8 [facility] Serum or plasma albumin/glob ulin mass ratioOrdered By: Randy Londono on 05-22-2024 Albumin/Globulin [Mass ratio] 1.3 {ratio} 0.9-2.4 [facility] Serum or plasma alkaline josue sphatase measurementOrdered By: Randy Londono on 05-22-2024 ALP [Catalytic activity/Vol] 82 U/L 40-129 [facility] Serum or plasma calcium ry urement (mass/volume)Ordered By: Randy Londono on 05-22-2024 Calcium [Mass/Vol] 9.2 mg/dL 7.6-11.0 [facility] Serum or plasma urea nitroge n measurement (mass/volume)Ordered By: Randy Londono on 05-22-2024 Urea nitrogen [Mass/Vol] 16 mg/dL 4-19 [facility] Sodium levelOrdered By: Randy Londono on 05-22-2024 Sodium [Moles/Vol] 140 mmol/L 133-145 [facility] Total proteinOrdered By: Randy Londono on 05-22-2024 Protein [Mass/Vol] 6.0 g/dL 5.9-8.4 [facility] Total protein 6.0 g/dL 5.9-8.4 [facility] Venous blood base excess eliot surementOrdered By: Mei Cortes on 05-22-2024 Base excess Calc (BldV) [Moles/Vol] 7 mmol/L High -1.0-3.5 [facility] Venous blood bicarbonate eliot surementOrdered By: Mei Cortes on 05-22-2024 HCO3 (Bld) [Moles/Vol] 32 mmol/L High 22-26 [facility] Venous blood bicarbonate measurement 32 mmol/L High 22-26 [facility] Venous blood oxygen saturati on measurementOrdered By: Mei Cortes on 05-22-2024 Oxygen saturation in Blood 43 % Low 50-70 [facility] Venous blood oxygen saturation measurement 43 % Low 50-70 [facility] Venous blood pH measurementO rdered By: Mei Cortes on 05-22-2024 pH (BldV) 7.38 [pH] 7.32-7.42 [facility] Venous blood partial pressur e of carbon dioxide measurementOrdered By: Mei Cortes on 05-22-2024 CO2 (BldV) [Partial pressure] 54.3 mm[Hg] High 41-51 [facility] Venous blood partial pressur e of oxygen measurementOrdered By: Mei Cortes on 05-22-2024 Oxygen (BldV) [Partial pressure] 25 mm[Hg] 25-40 [facility] White blood cell (WBC) count Ordered By: Randy Londono on 05-22-2024 WBC (Bld) [#/Vol] 13.5 10*3/uL High 4.4-11.0 [facility] pH (BldV)Ordered By: Mei Prabhakar on 05-22-2024 Venous Blood pH 7.38 7.32-7.42 [facility] Venous blood pH measurement 7.38 7.32-7.42 [facility] CNPNon 05-05-2024 CNPN Normal [facility] Basic metabolic 2000 panelon 04-26-2024 Anion gap [Moles/Vol] 11 mmol/L Normal 8-15 [facility] Comment on above: Order Comment: Speci men Type: BLOOD SPECIMENOrdering Facility: [facility] Address: [address] [place] [address] Performed By: #### 2 4321-2, 81048-9 ####[facility] MISHEL MILLTOWMARQUESLIA [id number] [place] [address] [place] Calcium [Mass/Vol] 9.7 mg/dL Normal 8.5-10.2 [facility] Comment on above: Order Comment: Speci men Type: BLOOD SPECIMENOrdering Facility: [facility] Address: [address] [place] [address] Performed By: #### 2 4321-2, 83878-5 ####[facility] MILLTOWMARQUESLIA [id number] [place] [address] [place] Chloride [Moles/Vol] 100 mmol/L Normal 98-107 [facility] Comment on above: Order Comment: Speci men Type: BLOOD SPECIMENOrdering Facility: [facility] Address: [address] [place] [address] Performed By: #### 2 4321-2, 80192-9 ####[facility] MILLTOWNCLIA [id number] [place] [address] [place] CO2 [Moles/Vol] 29 mmol/L Normal 22-30 [facility] Comment on above: Order Comment: Speci men Type: BLOOD SPECIMENOrdering Facility: [facility] Address: [address] [place] [address] Performed By: #### 2 4321-2, 41793-4 ####[facility] MILLTOWNCLIA [id number] [place] [address] [place] Creatinine [Mass/Vol] 0.74 mg/dL Normal 0.73-1.22 [facility] Comment on above: Order Comment: Fab doran Type: BLOOD SPECIMENOrdering Facility: [facility] Address: [address] [place] [address] Performed By: #### 2 4321-2, 71864-6 ####[facility]ITALNCLI [id number] [place] [address] [place] Creatinine and Glomerular filtration rate.predicted panel (S/P/Bld) 91 mL/min/1.73m??? Normal >=60 [facility] Comment on above: Order Comment: Fab doran Type: BLOOD SPECIMENOrdering Facility: [facility] Address: [address] [place] [address] Result Comment: Karey mated Glomerular Filtration Rate [...] actual GFR. Performed By: #### 2 4321-2, 68090-0 ####[facility] [id number] [place] [address] [place] Glucose [Mass/Vol] 134 mg/dL High 74-99 [facility] Comment on above: Order Comment: Fab doran Type: BLOOD SPECIMENOrdering Facility: [facility] Address: [address] [place] [address] Result Comment: The [place] Diabetes Association (ADA) provides guidance for cutoff [...] Standards of Medical Care in Diabetes 2016, [place] Diabetes Association. Diabetes Care. 2016.39(Suppl 1). Performed By: #### 2 4321-2, 12053-1 ####[facility] MISHEL AILEENNCRICK [id number] [place] [address] [place] Potassium [Moles/Vol] 4.2 mmol/L Normal 3.7-5.1 [facility] Comment on above: Order Comment: Speci men Type: BLOOD SPECIMENOrdering Facility: [facility] Address: [address] [place] [address] Performed By: #### 2 4321-2, 97428-0 ####[facility] HOS[facility]ITALNCRICK [id number] [place] [address] [place] Sodium [Moles/Vol] 140 mmol/L Normal 136-144 [facility] Comment on above: Order Comment: Speci men Type: BLOOD SPECIMENOrdering Facility: [facility] Address: [address] [place] [address] Performed By: #### 2 4321-2, 31604-0 ####[facility] HOSPITALNCPAULAA [id number] [place] [address] [place] Urea nitrogen [Mass/Vol] 19 mg/dL Normal 9-24 [facility] Comment on above: Order Comment: Speci men Type: BLOOD SPECIMENOrdering Facility: [facility] Address: [address] [place] [address] Performed By: #### 2 4321-2, 91752-5 ####[facility] HOSPITALLIA [id number] [place] [address] [place] Hepatic function 2000 panelo n 04-26-2024 Albumin [Mass/Vol] 4.1 g/dL Normal 3.9-4.9 [facility] Comment on above: Order Comment: Speci men Type: BLOOD SPECIMENOrdering Facility: [facility] Address: [address] [place] [address] Performed By: #### 2 4321-2, 58365-9 ####[facility] MARNIA [id number] [place] [address] [place] ALP [Catalytic activity/Vol] 69 U/L Normal 38-113 [facility] Comment on above: Order Comment: Speci men Type: BLOOD SPECIMENOrdering Facility: [facility] Address: [address] [place] [address] Performed By: #### 2 432-2, 02952-2 ####[facility] ALEKSEYMT ZIONMARQUESLIA [id number] [place] [address] [place] ALT [Catalytic activity/Vol] 11 U/L Normal 10-54 [facility] Comment on above: Order Comment: Speci men Type: BLOOD SPECIMENOrdering Facility: [facility] Address: [address] [place] [address] Performed By: #### 2 4321-2, 79442-3 ####[facility] HOSPITALBRENDAA [id number] [place] [address] [place] AST [Catalytic activity/Vol] 17 U/L Normal 14-40 [facility] Comment on above: Order Comment: Speci men Type: BLOOD SPECIMENOrdering Facility: [facility] Address: [address] [place] [address] Performed By: #### 2 4321-2, 39091-8 ####[facility]ITALNCLIA [id number] [place] [address] [place] Bilirubin [Mass/Vol] 0.5 mg/dL Normal 0.2-1.3 [facility] Comment on above: Order Comment: Speci men Type: BLOOD SPECIMENOrdering Facility: [facility] Address: [address] [place] [address] Performed By: #### 2 4321-2, 89659-8 ####[facility] HOSPITALLIA [id number] [place] [address] [place] Bilirubin.conjugated [Mass/Vol] 0.2 mg/dL Normal <0.3 [facility] Comment on above: Order Comment: Speci men Type: BLOOD SPECIMENOrdering Facility: [facility] Address: [address] [place] [address] Performed By: #### 2 4321-2, 86361-4 ####[facility] [id number] [place] [address] [place] Protein [Mass/Vol] 6.7 g/dL Normal 6.3-8.0 [facility] Comment on above: Order Comment: Speci men Type: BLOOD SPECIMENOrdering Facility: [facility] Address: [address] [place] [address] Performed By: #### 2 4321-2, 50925-5 ####[facility] [id number] [place] [address] [place] [facility] [place] Lipid 1996 panelon 5 Cholesterol [Mass/Vol] 142 mg/dL Normal <200 [facility] Comment on above: Order Comment: Speci men Type: BLOOD SPECIMENOrdering Facility: [facility] Address: [address] [place] [address] Result Comment: <200 mg/dL, Desirable 200-239 mg/dL, Borderline high>239 mg/dL, High Performed By: #### 2 4331-1 ####[facility] LABORATORYCLIA [id number] [place] [address] [place] [facility] [id number] [address] [place] Cholesterol in HDL [Mass/Vol] 65 mg/dL Normal >39 [facility] Comment on above: Order Comment: Speci men Type: BLOOD SPECIMENOrdering Facility: [facility] Address: [address] [place] [address] Result Comment: 40-5 9 mg/dL, Acceptable>59 mg/dL, High: Negative risk factor for coronary heart disease<40 mg/dL, Low: Positive risk factor for coronary heart disease Performed By: #### 2 4331-1 ####[facility]ORATORYCLIA [id number] [id number] [place] [address] Cholesterol in LDL [Mass/Vol] 53 mg/dL Normal <100 [facility] Comment on above: Order Comment: Suni men Type: BLOOD SPECIMENOrdering Facility: [facility] Address: [address] [place] [address] Result Comment: <100 mg/dL, Optimal 100-129 mg/dL, Near optimal/above optimal 130-159 mg/dL, Borderline high 160-189 mg/dL, High>189 mg/dL, Very highSecondary prevention optimal LDL Cholesterol levels are recommended to be < 70 mg/dL Performed By: #### 2 4331-1 ####[facility] LABORATORYCLIA [id number] [address] [id number] [place] [address] Cholesterol in LDL/Cholesterol in HDL [Mass ratio] 0.82 {ratio} Normal <2.54 [facility] Comment on above: Order Comment: Speci men Type: BLOOD SPECIMENOrdering Facility: [facility] Address: [address] [place] [address] Result Comment: Rayna cobian:1. National Cholesterol Education Program ATP III Guideline At-A-Glance Quick Desk Reference: National Heart, Lung, and Blood [place]. National Institutes of Health. 2001: NIH Publication No. 01-3305.2. An International Atherosclerosis Society position paper: global recommendations for the management of dyslipidemia: executive summary, Atherosclerosis. 2014: 232(2):410-413. Performed By: #### 2 4331-1 ####[facility]ORATORYCLIA [id number] [place], [place] [id number] [place] [address] [id number] Cholesterol in VLDL [Mass/Vol] 24 mg/dL Normal <30 [facility] Comment on above: Order Comment: Speci men Type: BLOOD SPECIMENOrdering Facility: [facility] Address: [address] [place] [address] Performed By: #### 2 4331-1 ####[facility] LABORATORYCLIA [id number] [address] [id number] [place] [address] Cholesterol non HDL [Mass/Vol] 77 mg/dL Normal <130 [facility] Comment on above: Order Comment: Speci men Type: BLOOD SPECIMENOrdering Facility: [facility] Address: [address] [place] [address] Result Comment: <130 mg/dL, Optimal 130-159 mg/dL, Near optimal/above optimal 160-189 mg/dL, Borderline high 190-219 mg/dL, High>219 mg/dL, Very highSecondary prevention optimal non HDL Cholesterol levels are recommended to be <100 mg/dL Performed By: #### 2 4331-1 ####[facility]ORATORYCLIA [id number] [address] [id number] [address] Cholesterol.total/Chol esterol in HDL [Mass ratio] 2.18 {ratio} Normal <5.10 [facility] Comment on above: Order Comment: Speci men Type: BLOOD SPECIMENOrdering Facility: [facility] Address: [address] [place] [address] Performed By: #### 2 4331-1 ####[facility]ORATORYCLIA [id number] [place] [address] [facility] [id number] [place] [address] [place] FASTING TIME 15 hrs Normal [facility] Comment on above: Order Comment: Speci men Type: BLOOD SPECIMENOrdering Facility: [facility] Address: [address] [place] [address] Performed By: #### 2 4331-1 ####[facility] LABORATORYCLIA [id number] [address] [id number] [place] [address] [place] Triglyceride [Mass/Vol] 119 mg/dL Normal <150 [facility] Comment on above: Order Comment: Speci men Type: BLOOD SPECIMENOrdering Facility: [facility] Address: [address] [place] [address] Result Comment: <150 mg/dL, Normal 150-199 mg/dL, Borderline high 200-499 mg/dL, High>499 mg/dL, Very high Performed By: #### 2 4331-1 ####[facility] LABORATORYCLIA [id number] [address] [id number] [place] [address] [place] CNPNon 04-20-2024 CNPN Normal [facility] CNOVon 04-14-2024 CNOV Normal [facility] [id number] 04-06-2024 [facility] Misc. COMMENT Normal . [facility] Comment on above: Order Comment: [id number] 1WOUND CULTURE Result Comment: Test Ordered: [id number] Anaerobic/Aerobic/Gram StainAnaerobic Culture Note: CB Final report [...] organisms seen Reference Range: .Performed at: - [facility] [id number] Director: Krishan Presley PhD, Phone: [phone] Performed By: #### L 3410.9998 ####[facility] [address] [place], [address] CNPNon 04-04-2024 CNPN Normal [facility] CNPNon 03-31-2024 CNPN Normal [facility] Basic Metabolic Profile (BMP )on 03-30-2024 BUN/CRE 28.3 RATIO High 10-20 [facility] Comment on above: Performed By: #### L 500.2500 ####[facility] [address] [place], [address] CA,Total 9.2 mg/dL Normal 8.5-10.1 [facility] Comment on above: Performed By: #### L 500.2500 ####[facility] [address] [place], [address] EST GFR - AA 123 mL/min Normal >60 [facility] Comment on above: Result Comment: Afri can Lebanese GFR Calc Performed By: #### L 500.2500 ####[facility] [address] [place], [address] GAP 7 Normal 5-15 [facility] Comment on above: Performed By: #### L 500.2500 ####[facility] [address] [place], [address] Blood urea nitrogen (BUN)/cr eatinine ratioOrdered By: Mei Cummins on 03-30-2024 Urea nitrogen/Creatinine [Mass ratio] 28.3 mg/mg High 10-20 [facility] Blood urea nitrogen (BUN)/creatinine ratio 28.3 RATIO High 10-20 [facility] Calcium [Mass/Vol]Ordered By : Mei Cummins on 03-30-2024 Serum or plasma calcium measurement (mass/volume) 9.2 mg/dL 8.5-10.1 [facility] Carbon dioxide measurementOr dered By: Mei Cummins on 03-30-2024 CO2 [Moles/Vol] 29.0 mmol/L Normal 21.0-32.0 [facility] Comment on above: Performed By: #### L 500.2500 ####[facility] [address] [place], [place], [id number] Carbon dioxide measurement 29.0 mmol/L 21.0-32.0 [facility] Chloride measurementOrdered By: Mei Cummins on 03-30-2024 Chloride [Moles/Vol] 107 mmol/L Normal 98-107 [facility] Comment on above: Performed By: #### L 500.2500 ####[facility] [address] [place], [place], [id number] Chloride measurement 107 mmol/L 98-107 [facility] Creatinine [Mass/Vol]Ordered By: Mei Cummins on 03-30-2024 Serum or plasma creatinine measurement (mass/volume) 0.78 mg/dL 0.70-1.30 [facility] Estimated glomerular filtrat ion rate (GFR) AmericanOrdered By: Mei Cummins on 03-30-2024 Estimated GFR (MDRD) Amer 123 mL/min >60 [facility] Comment on above: GFR Calc Estimated glomerular filtration rate (GFR) 123 mL/min >60 [facility] Glomerular filtration rate ( GFR) estimationOrdered By: Mei Cummins on 03-30-2024 GFR/1.73 sq M.predicted among non-blacks MDRD (S/P/Bld) [Vol rate/Area] 102 mL/min/{1.73_m2} Normal >60 [facility] Comment on above: Result Comment: Non- GFR Calc Performed By: #### L 500.2500 ####[facility] [address] [place], [address] Estimated GFR (MDRD) Non-Af Amer 102 mL/min >60 [facility] Comment on above: Non- GFR Calc Glomerular filtration rate (GFR) estimation 102 mL/min >60 [facility] Glucose measurementOrdered B y: Mei Cummins on 03-30-2024 Glucose [Mass/Vol] 112 mg/dL High 74-106 [facility] Comment on above: Fasting Glucose resu lt from 100 to 125 mg/dL suggests IMPAIRED HOMEOSTASIS per A.D.A. criteria. Result Comment: Fast ing Glucose result from 100 to 125 mg/dLsuggests IMPAIRED HOMEOSTASIS per A.D.A. criteria. Performed By: #### L 500.2500 ####[facility] [address] [place], [place], [id number] Glucose measurement 112 mg/dL High 74-106 [facility] Potassium measurementOrdered By: Mei Cummins on 03-30-2024 Potassium [Moles/Vol] 4.0 mmol/L Normal 3.5-5.1 [facility] Comment on above: Performed By: #### L 500.2500 ####[facility] [address] [place], [place], [address] Potassium measurement 4.0 mmol/L 3.5-5.1 [facility] Serum anion gap measurementO rdered By: Mei Cummins on 03-30-2024 Anion gap [Moles/Vol] 7 mmol/L 5-15 [facility] Serum anion gap measurement 7 5-15 [facility] Serum or plasma calcium ry urement (mass/volume)Ordered By: Mei Cummins on 03-30-2024 Calcium [Mass/Vol] 9.2 mg/dL 8.5-10.1 [facility] Serum or plasma creatinine m easurement (mass/volume)Ordered By: Mei Cummins on 03-30-2024 Creatinine [Mass/Vol] 0.78 mg/dL Normal 0.70-1.30 [facility] Comment on above: The validity of the calculated GFR & GFRAA in patients over 70 years has not been determined. Clinical correlation is essential. Result Comment: The validity of the calculated GFR GFRAA in patients over70 years has not been determined. Clinical correlation isessential. Performed By: #### L 500.2500 ####[facility] [address] [place], [address] Serum or plasma urea nitroge n measurement (mass/volume)Ordered By: Mei Cummins on 03-30-2024 Urea nitrogen [Mass/Vol] 22 mg/dL High 09-16 [facility] Comment on above: Performed By: #### L 500.2500 ####[facility] [address] [place], [address] Sodium levelOrdered By: Mei Cummins on 03-30-2024 Sodium [Moles/Vol] 143 mmol/L Normal 136-145 [facility] Comment on above: Performed By: #### L 500.2500 ####[facility] [address] [place], [address] Sodium level 143 mmol/L 136-145 [facility] Urea nitrogen [Mass/Vol]Orde red By: Mei Cummins on 03-30-2024 Serum or plasma urea nitrogen measurement (mass/volume) 22 mg/dL [address] [facility] History AND Physic diogo 03-30-2024 Wound Ctr History & Physical Normal [facility] CNOVon 03-23-2024 CNOV Normal [facility] CNPNon 03-22-2024 CNPN Normal [facility] CNOVSPon 03-21-2024 CNOVSP Normal [facility] CNPNon 03-16-2024 CNPN Normal [facility] CNOVon 03-15-2024 CNOV Normal [facility] CREATININE BLDon 03-14-2024 Creatinine [Mass/Vol] 0.89 mg/dL Normal 0.73-1.22 [facility] Comment on above: Order Comment: Speci men Type: BLOOD SPECIMENOrdering Facility: [facility] Address: [address] [place] [address] Performed By: #### C RET1 ####[facility] LABCLIA [id number] [place] [address] [place] Creatinine and Glomerular filtration rate.predicted panel (S/P/Bld) 86 mL/min/1.73m??? Normal >=60 [facility] Comment on above: Order Comment: Speci men Type: BLOOD SPECIMENOrdering Facility: [facility] Address: [address] [place] [address] Result Comment: Karey mated Glomerular Filtration Rate [...] actual GFR. Performed By: #### C RET1 ####[facility] LABCLIA [id number] [place] [address] [place] CT CHEST W IVCONon CT CHEST W IVCON Normal [facility] CNOVon 03-10-2024 CNOV Normal [facility] PVR ANK/JUARES/TOE MARTITA VAS LAB on 03-10-2024 PVR ANK/JUARES/TOE MARTITA VAS LAB Normal [facility] CNOVon 03-03-2024 CNOV Normal [facility] CNPNon 02-29-2024 CNPN Normal [facility] Basic Metabolic Profile (BMP )on 02-22-2024 BUN/CRE 44.0 RATIO High 10-20 [facility] Comment on above: Performed By: #### L 100.0500, L500.2500 ####[facility] [address] [place], [address] CA,Total 8.9 mg/dL Normal 8.5-10.1 [facility] Comment on above: Performed By: #### L 100.0500, L500.2500 ####[facility] [address] [place], [address] Chloride [Moles/Vol] 108 mmol/L High 98-107 [facility] Comment on above: Performed By: #### L 100.0500, L500.2500 ####[facility] [address] [place], [address] CO2 [Moles/Vol] 29.0 mmol/L Normal 21.0-32.0 [facility] Comment on above: Performed By: #### L 100.0500, L500.2500 ####[facility] [address] [place], [address] Creatinine [Mass/Vol] 0.61 mg/dL Low 0.70-1.30 [facility] Comment on above: Result Comment: The validity of the calculated GFR GFRAA in patients over70 years has not been determined. Clinical correlation isessential. Performed By: #### L 100.0500, L500.2500 ####[facility] [address] [place], [address] ECRCL 77.13 ml/min Normal [facility] Comment on above: Performed By: #### L 100.0500, L500.2500 ####[facility] [address] [place], [address] EST GFR - AA 162 mL/min Normal >60 [facility] Comment on above: Result Comment: Afri can Lebanese GFR Calc Performed By: #### L 100.0500, L500.2500 ####[facility] [address] [place], [address] GAP 4 Low 5-15 [facility] Comment on above: Performed By: #### L 100.0500, L500.2500 ####[facility] [address] [place], [address] GFR/1.73 sq M.predicted among non-blacks MDRD (S/P/Bld) [Vol rate/Area] 134 mL/min/{1.73_m2} Normal >60 [facility] Comment on above: Result Comment: Non- GFR Calc Performed By: #### L 100.0500, L500.2500 ####[facility] [address] [place], [address] Glucose [Mass/Vol] 159 mg/dL High 74-106 [facility] Comment on above: Result Comment: Fast ing Glucose result greater than or equal to 126 mg/dLsuggests DIABETES MELLITUS per A.D.A. criteria. Performed By: #### L 100.0500, L500.2500 ####[facility] [address] [place], [address] Potassium [Moles/Vol] 4.1 mmol/L Normal 3.5-5.1 [facility] Comment on above: Performed By: #### L 100.0500, L500.2500 ####[facility] [address] [place], [address] Sodium [Moles/Vol] 141 mmol/L Normal 136-145 [facility] Comment on above: Performed By: #### L 100.0500, L500.2500 ####[facility] [address] [place], [address] Urea nitrogen [Mass/Vol] 27 mg/dL High 7-18 [facility] Comment on above: Performed By: #### L 100.0500, L500.2500 ####[facility] [address] [place], [address] Blood urea nitrogen (BUN)/cr eatinine ratioOrdered By: Jacob Suazo on 02-22-2024 Urea nitrogen/Creatinine [Mass ratio] 44.0 mg/mg High - [facility] Blood urea nitrogen (BUN)/creatinine ratio 44.0 RATIO High - [facility] CBC-Complete Blood Cnt No Di ffon 02-22-2024 Erythrocyte distribution width (RBC) [Ratio] 16.0 % High 11.6-14.6 [facility] Comment on above: Performed By: #### L 100.0500, L500.2500 ####[facility] [address] [place], [address] Hematocrit (Bld) [Volume fraction] 35.8 % Low 40-54 [facility] Comment on above: Performed By: #### L 100.0500, L500.2500 ####[facility] [address] [place], [address] Hemoglobin (Bld) [Mass/Vol] 10.3 g/dL Low 13.0-16.5 [facility] Comment on above: Performed By: #### L 100.0500, L500.2500 ####[facility] [address] [place], [address] MCH (RBC) [Entitic mass] 25.4 pg Low 27.0-32.0 [facility] Comment on above: Performed By: #### L 100.0500, L500.2500 ####[facility] [address] [place], [address] MCHC (RBC) [Mass/Vol] 28.8 g/dL Low 32-36 [facility] Comment on above: Performed By: #### L 100.0500, L500.2500 ####[facility] [address] [place], [address] MCV (RBC) [Entitic vol] 88.2 fL Normal 80-94 [facility] Comment on above: Performed By: #### L 100.0500, L500.2500 ####[facility] [address] [place], [address] Platelet mean volume (Bld) [Entitic vol] 9.0 fL Normal 6.2-12.0 [facility] Comment on above: Performed By: #### L 100.0500, L500.2500 ####[facility] [address] [place], [address] Platelets (Bld) [#/Vol] 381 10*3/uL Normal 150-450 [facility] Comment on above: Performed By: #### L 100.0500, L500.2500 ####[facility] [address] [place], [address] RBC (Bld) [#/Vol] 4.06 10*6/uL Low 4.6-6.2 [facility] Comment on above: Performed By: #### L 100.0500, L500.2500 ####[facility] [address] [place], [address] RDW SD 52.1 fl High 35.1-43.9 [facility] Comment on above: Performed By: #### L 100.0500, L500.2500 ####[facility] [address] [place], [address] WBC (Bld) [#/Vol] 11.2 10*3/uL High 4.4-11.0 [facility] Comment on above: Performed By: #### L 100.0500, L500.2500 ####[facility] [address] [place], [address] Calcium [Mass/Vol]Ordered By : Jacob Suazo on 02-22-2024 Serum or plasma calcium measurement (mass/volume) 8.9 mg/dL 8.5-10.1 [facility] Carbon dioxide measurementOr dered By: Jacob Suazo on 02-22-2024 CO2 [Moles/Vol] 29.0 mmol/L 21.0-32.0 [facility] Carbon dioxide measurement 29.0 mmol/L 21.0-32.0 [facility] Chloride measurementOrdered By: Jacob Suazo on 02-22-2024 Chloride [Moles/Vol] 108 mmol/L High 98-107 [facility] Chloride measurement 108 mmol/L High 98-107 [facility] Creatinine [Mass/Vol]Ordered By: Jacob Suazo on 02-22-2024 Serum or plasma creatinine measurement (mass/volume) 0.61 mg/dL Low 0.70-1.30 [facility] Discharge Instructionon 12-2 Discharge Instruction Normal [facility] Erythrocyte distribution wid th (RBC) [Ratio]Ordered By: Jacob Suazo on 02-22-2024 Erythrocyte distribution width ratio 16.0 % High 11.6-14.6 [facility] Erythrocyte distribution width standard deviation 52.1 fl High 35.1-43.9 [facility] Erythrocyte distribution wid th ratioOrdered By: Jacob Suazo on 02-22-2024 Erythrocyte distribution width (RBC) [Ratio] 16.0 % High 11.6-14.6 [facility] Erythrocyte distribution wid th standard deviationOrdered By: Jacob Suazo on 02-22-2024 Erythrocyte distribution width (RBC) [Entitic vol] 52.1 fL High 35.1-43.9 [facility] Estimated glomerular filtrat ion rate (GFR) AmericanOrdered By: Jacob Suazo on 02-22-2024 Estimated GFR (MDRD) Amer 162 mL/min >60 [facility] Comment on above: GFR Calc Estimated glomerular filtration rate (GFR) 162 mL/min >60 [facility] Estimation of creatinine marybel aranceOrdered By: Jacob Suazo on 02-22-2024 Estimated Creatinine Clearance Calc 77.13 ml/min [facility] Estimation of creatinine clearance 77.13 ml/min [facility] Glomerular filtration rate ( GFR) estimationOrdered By: Jacob Suazo on 02-22-2024 Estimated GFR (MDRD) Non-Af Amer 134 mL/min >60 [facility] Comment on above: Non- GFR Calc Glomerular filtration rate (GFR) estimation 134 mL/min >60 [facility] Glucose measurementOrdered B y: Jacob Suazo on 02-22-2024 Glucose [Mass/Vol] 159 mg/dL High 74-106 [facility] Comment on above: Fasting Glucose resu lt greater than or equal to 126 mg/dL suggests DIABETES MELLITUS per A.D.A. criteria. Glucose measurement 159 mg/dL High 74-106 [facility] Hematocrit Auto (Bld) [Volum e fraction]Ordered By: Jacob Suazo on 02-22-2024 Hematocrit (Bld) [Volume fraction] 35.8 % Low 40-54 [facility] Automated blood hematocrit (percentage) 35.8 % Low 40-54 [facility] Hemoglobin measurementOrdere d By: Jacob Suazo on 02-22-2024 Hemoglobin (Bld) [Mass/Vol] 10.3 g/dL Low 13.0-16.5 [facility] Hemoglobin measurement 10.3 g/dL Low 13.0-16.5 [facility] MCV (RBC) [Entitic vol]Order ed By: Jacob Suazo on 02-22-2024 MCV (mean corpuscular volume) determination 88.2 fL 80-94 [facility] MCV (mean corpuscular volume ) determinationOrdered By: Jacob Suazo on 02-22-2024 MCV (RBC) [Entitic vol] 88.2 fL 80-94 [facility] Mean corpuscular hemoglobin (MCH) determinationOrdered By: Jacob Suazo on 02-22-2024 MCH (RBC) [Entitic mass] 25.4 pg Low 27.0-32.0 [facility] Mean corpuscular hemoglobin (MCH) determination 25.4 pg Low 27.0-32.0 [facility] Mean corpuscular hemoglobin concentration (MCHC) determinationOrdered By: Jacob Suazo on 02-22-2024 MCHC (RBC) [Mass/Vol] 28.8 g/dL Low 32-36 [facility] Mean corpuscular hemoglobin concentration (MCHC) determination 28.8 g/dL Low 32-36 [facility] Mean platelet volume determi nationOrdered By: Jacob Suazo on 02-22-2024 Platelet mean volume (Bld) [Entitic vol] 9.0 fL 6.2-12.0 [facility] Mean platelet volume determination 9.0 fl 6.2-12.0 [facility] Platelet countOrdered By: Neto Suazo on 02-22-2024 Platelets (Bld) [#/Vol] 381 10*3/uL 150-450 [facility] Platelet count 381 K/mm3 150-450 [facility] Potassium measurementOrdered By: Jacob Suazo on 02-22-2024 Potassium [Moles/Vol] 4.1 mmol/L 3.5-5.1 [facility] Potassium measurement 4.1 mmol/L 3.5-5.1 [facility] RBC Auto (Bld) [#/Vol]Ordere d By: Jacob Suazo on 02-22-2024 RBC (Bld) [#/Vol] 4.06 10*6/uL Low 4.6-6.2 [facility] Automated blood erythrocyte count 4.06 M/mm3 Low 4.6-6.2 [facility] Serum anion gap measurementO rdered By: Jacob Suazo on 02-22-2024 Anion gap [Moles/Vol] 4 mmol/L Low 5-15 [facility] Serum anion gap measurement 4 Low 5-15 [facility] Serum or plasma calcium ry urement (mass/volume)Ordered By: Jacob Suazo on 02-22-2024 Calcium [Mass/Vol] 8.9 mg/dL 8.5-10.1 [facility] Serum or plasma creatinine m easurement (mass/volume)Ordered By: Jacob Suazo on 02-22-2024 Creatinine [Mass/Vol] 0.61 mg/dL Low 0.70-1.30 [facility] Comment on above: The validity of the calculated GFR & GFRAA in patients over 70 years has not been determined. Clinical correlation is essential. Serum or plasma urea nitroge n measurement (mass/volume)Ordered By: Jacob Suazo on 02-22-2024 Urea nitrogen [Mass/Vol] 27 mg/dL High 09-16 [facility] Sodium levelOrdered By: Terrell Suazo on 02-22-2024 Sodium [Moles/Vol] 141 mmol/L 136-145 [facility] Sodium level 141 mmol/L 136-145 [facility] Urea nitrogen [Mass/Vol]Orde red By: Jacob Suazo on 02-22-2024 Serum or plasma urea nitrogen measurement (mass/volume) 27 mg/dL High 09-16 [facility] White blood cell (WBC) count Ordered By: Jacob Suazo on 02-22-2024 WBC (Bld) [#/Vol] 11.2 10*3/uL High 4.4-11.0 [facility] White blood cell (WBC) count 11.2 K/mm3 High 4.4-11.0 [facility] ALP [Catalytic activity/Vol] Ordered By: Sushila Rivers on 02-20-2024 Serum or plasma alkaline phosphatase measurement 91 U/L 45-117 [facility] ALT [Catalytic activity/Vol] Ordered By: Sushila Tita on 02-20-2024 Serum or plasma alanine aminotransferase (ALT) measurement 15 U/L Low 16-61 [facility] Absolute neutrophil countOrd ered By: Sushila Tita on 02-20-2024 Neutrophils (Bld) [#/Vol] 5.9 10*3/uL 2.0-7.7 [facility] Absolute neutrophil count 5.9 X10^3/uL 2.0-7.7 [facility] Albumin [Mass/Vol]Ordered By : Sushila Tita on 02-20-2024 Serum or plasma albumin measurement (mass/volume) 2.3 g/dL Low 3.2-5.0 [facility] Albumin to globulin ratioOrd ered By: [facility] Tita on 02-20-2024 Albumin/Globulin [Mass ratio] 0.6 {ratio} Low 0.9-2.4 [facility] Albumin to globulin ratio 0.6 RATIO Low 0.9-2.4 [facility] Basophil percentageOrdered B y: Sushila Rivers on 02-20-2024 Basophils/100 WBC (Bld) 0.0 % 0-1 [facility] Bilirubin, totalOrdered By: Sushila Tita on 02-20-2024 Bilirubin [Mass/Vol] 0.40 mg/dL 0.20-1.00 [facility] Comment on above: For patients on eltr ombopag therapy, use of Dimension Nickerson TBIL is not recommended. Bilirubin, total 0.40 mg/dL 0.20-1.00 [facility] CBC W/Diff, Automatedon 12- Absolute Lymph 0.21 X10 3/uL Low 0.83-4.51 [facility] Comment on above: Performed By: #### L 500.4050, L100.0100 ####[facility] [address] [place], [place], [id number] Absolute Neut 5.9 X10 3/uL Normal 2.0-7.7 [facility] Comment on above: Performed By: #### L 500.4050, L100.0100 ####[facility] [address] [place], [address] Basophils/100 WBC (Bld) 0.0 % Normal 0-1 [facility] Comment on above: Performed By: #### L 500.4050, L100.0100 ####[facility] [address] [place], [address] Eosinophils/100 WBC (Bld) 0.0 % Normal 0-5 [facility] Comment on above: Performed By: #### L 500.4050, L100.0100 ####[facility] [address] [place], [address] Erythrocyte distribution width (RBC) [Ratio] 16.0 % High 11.6-14.6 [facility] Comment on above: Performed By: #### L 500.4050, L100.0100 ####[facility] [address] [place], [address] Hematocrit (Bld) [Volume fraction] 33.6 % Low 40-54 [facility] Comment on above: Performed By: #### L 500.4050, L100.0100 ####[facility] [address] [place], [address] Hemoglobin (Bld) [Mass/Vol] 10.0 g/dL Low 13.0-16.5 [facility] Comment on above: Performed By: #### L 500.4050, L100.0100 ####[facility] [address] [place], [address] IG% 1.400 High 0.0-0.9 [facility] Comment on above: Result Comment: IG% - Immature Granulocytes (promyelocytes, myelocytes andmetamyelocytes) > 1% indicates that a LEFT SHIFT is Present. Performed By: #### L 500.4050, L100.0100 ####[facility] [address] [place], [address] Lymphocytes/100 WBC (Bld) 3.4 % Low 19-41 [facility] Comment on above: Performed By: #### L 500.4050, L100.0100 ####[facility] [address] [place], [address] MCH (RBC) [Entitic mass] 25.7 pg Low 27.0-32.0 [facility] Comment on above: Performed By: #### L 500.4050, L100.0100 ####[facility] [address] [place], [address] MCHC (RBC) [Mass/Vol] 29.8 g/dL Low 32-36 [facility] Comment on above: Performed By: #### L 500.4050, L100.0100 ####[facility] [address] [place], [address] MCV (RBC) [Entitic vol] 86.4 fL Normal 80-94 [facility] Comment on above: Performed By: #### L 500.4050, L100.0100 ####[facility] [address] [place], [address] Monocytes/100 WBC (Bld) 1.0 % Normal 0-10 [facility] Comment on above: Performed By: #### L 500.4050, L100.0100 ####[facility] [address] [place], [address] Neutrophils/100 WBC (Bld) 94.2 % High 47-70 [facility] Comment on above: Performed By: #### L 500.4050, L100.0100 ####[facility] [address] [place], [address] Nucleated RBC (Bld) [#/Vol] 0 10*3/uL Normal 0-5 [facility] Comment on above: Performed By: #### L 500.4050, L100.0100 ####[facility] [address] [place], [address] Platelet mean volume (Bld) [Entitic vol] 8.7 fL Normal 6.2-12.0 [facility] Comment on above: Performed By: #### L 500.4050, L100.0100 ####[facility] [address] [place], [address] Platelets (Bld) [#/Vol] 370 10*3/uL Normal 150-450 [facility] Comment on above: Performed By: #### L 500.4050, L100.0100 ####[facility] [address] [place], [address] RBC (Bld) [#/Vol] 3.89 10*6/uL Low 4.6-6.2 [facility] Comment on above: Performed By: #### L 500.4050, L100.0100 ####[facility] [address] [place], [address] RDW SD 50.3 fl High 35.1-43.9 [facility] Comment on above: Performed By: #### L 500.4050, L100.0100 ####[facility] [address] [place], [address] WBC (Bld) [#/Vol] 6.2 10*3/uL Normal 4.4-11.0 [facility] Comment on above: Performed By: #### L 500.4050, L100.0100 ####[facility] [address] [place], [address] Comprehensive Metabolic Prof ilon 02-20-2024 Albumin [Mass/Vol] 2.3 g/dL Low 3.2-5.0 [facility] Comment on above: Performed By: #### L 500.4050, L100.0100 ####[facility] [address] [place], [address] Albumin/Globulin [Mass ratio] 0.6 {ratio} Low 0.9-2.4 [facility] Comment on above: Performed By: #### L 500.4050, L100.0100 ####[facility] [address] [place], [address] ALK P 91 U/L Normal 45-117 [facility] Comment on above: Performed By: #### L 500.4050, L100.0100 ####[facility] [address] [place], [address] ALT [Catalytic activity/Vol] 15 U/L Low 16-61 [facility] Comment on above: Performed By: #### L 500.4050, L100.0100 ####[facility] [address] [place], [address] AST [Catalytic activity/Vol] 16 U/L Normal 15-37 [facility] Comment on above: Performed By: #### L 500.4050, L100.0100 ####[facility] [address] [place], [address] Bilirubin [Mass/Vol] 0.40 mg/dL Normal 0.20-1.00 [facility] Comment on above: Result Comment: For patients on eltrombopag therapy, use of Dimension Nickerson TBIL is not recommended. Performed By: #### L 500.4050, L100.0100 ####[facility] [address] [place], [address] BUN/CRE 28.0 RATIO High 10-20 [facility] Comment on above: Performed By: #### L 500.4050, L100.0100 ####[facility] [address] [place], [address] CA,Total 8.9 mg/dL Normal 8.5-10.1 [facility] Comment on above: Performed By: #### L 500.4050, L100.0100 ####[facility] [address] [place], [address] Chloride [Moles/Vol] 106 mmol/L Normal 98-107 [facility] Comment on above: Performed By: #### L 500.4050, L100.0100 ####[facility] [address] [place], [address] CO2 [Moles/Vol] 28.0 mmol/L Normal 21.0-32.0 [facility] Comment on above: Performed By: #### L 500.4050, L100.0100 ####[facility] [address] [place], [address] Creatinine [Mass/Vol] 0.57 mg/dL Low 0.70-1.30 [facility] Comment on above: Result Comment: The validity of the calculated GFR GFRAA in patients over70 years has not been determined. Clinical correlation isessential. Performed By: #### L 500.4050, L100.0100 ####[facility] [address] [place], [address] ECRCL 76.62 ml/min Normal [facility] Comment on above: Performed By: #### L 500.4050, L100.0100 ####[facility] [address] [place], [address] EST GFR - AA 176 mL/min Normal >60 [facility] Comment on above: Result Comment: Afri can Lebanese GFR Calc Performed By: #### L 500.4050, L100.0100 ####[facility] [address] [place], [address] GAP 5 Normal 5-15 [facility] Comment on above: Performed By: #### L 500.4050, L100.0100 ####[facility] [address] [place], [address] GFR/1.73 sq M.predicted among non-blacks MDRD (S/P/Bld) [Vol rate/Area] 145 mL/min/{1.73_m2} Normal >60 [facility] Comment on above: Result Comment: Non- GFR Calc Performed By: #### L 500.4050, L100.0100 ####[facility] [address] [place], [address] Globulin (S) [Mass/Vol] 3.8 g/dL Normal 2.2-4.2 [facility] Comment on above: Performed By: #### L 500.4050, L100.0100 ####[facility] [address] [place], [address] Glucose [Mass/Vol] 167 mg/dL High 74-106 [facility] Comment on above: Result Comment: Fast ing Glucose result greater than or equal to 126 mg/dLsuggests DIABETES MELLITUS per A.D.A. criteria. Performed By: #### L 500.4050, L100.0100 ####[facility] [address] [place], [address] Potassium [Moles/Vol] 3.9 mmol/L Normal 3.5-5.1 [facility] Comment on above: Performed By: #### L 500.4050, L100.0100 ####[facility] [address] [place], [address] Sodium [Moles/Vol] 139 mmol/L Normal 136-145 [facility] Comment on above: Performed By: #### L 500.4050, L100.0100 ####[facility] [address] [place], [address] T PROT 6.1 g/dL Low 6.4-8.2 [facility] Comment on above: Performed By: #### L 500.4050, L100.0100 ####[facility] [address] [place], [place], [address] Urea nitrogen [Mass/Vol] 16 mg/dL Normal 7-18 [facility] Comment on above: Performed By: #### L 500.4050, L100.0100 ####[facility] [address] [place], [address] Eosinophil percentageOrdered By: White on 02-20-2024 Eosinophils/100 WBC (Bld) 0.0 % 0-5 [facility] Eosinophil percentage 0.0 % 0-1 [facility] Immature granulocytes/100 WB C Auto (Bld)Ordered By: White on 02-20-2024 Immature granulocytes/100 WBC (Bld) 1.400 % High 0.0-0.9 [facility] Comment on above: IG% - Immature Granu locytes (promyelocytes, myelocytes and metamyelocytes) > 1% indicates that a LEFT SHIFT is Present. Automated immature granulocyte percentage 1.400 % High 0.0-0.9 [facility] Laboratory - Chemistry and C hemistry - challengeOrdered By: White on 02-20-2024 AST [Catalytic activity/Vol] 16 U/L 15-37 [facility] Lymphocytes Auto (Unsp spec) [#/Vol]Ordered By: White on 02-20-2024 Lymphocytes (Bld) [#/Vol] 0.21 10*3/uL Low 0.83-4.51 [facility] Absolute lymphocyte count 0.21 X10^3/uL Low 0.83-4.51 [facility] Lymphocytes/100 WBC Auto (Un sp spec)Ordered By: White on 02-20-2024 Lymphocytes/100 WBC (Bld) 3.4 % Low 19-41 [facility] Automated lymphocyte count as percentage of total leukocytes 3.4 % Low 19-41 [facility] Monocyte percentageOrdered B y: White on 02-20-2024 Monocytes/100 WBC (Bld) 1.0 % 0-10 [facility] Monocyte percentage 1.0 % 0-10 [facility] Neutrophil percentageOrdered By: White on 02-20-2024 Neutrophils/100 WBC (Bld) 94.2 % High 47-70 [facility] Neutrophil percentage 94.2 % High 47-70 [facility] No Panel InformationOrdered By: Sushila Tita on 02-20-2024 16 U/L 15-37 [facility] Nucleated red blood cell per centageOrdered By: [facility] Tita on 02-20-2024 Nucleated RBC/100 WBC (Bld) [Ratio] 0 % 0-5 [facility] Nucleated red blood cell percentage 0 % 0-5 [facility] Serum globulin measurementOr dered By: Sushila Rivers on 02-20-2024 Globulin (S) [Mass/Vol] 3.8 g/dL 2.2-4.2 [facility] Serum globulin measurement 3.8 g/dL 2.2-4.2 [facility] Serum or plasma alanine pierre otransferase (ALT) measurementOrdered By: Sushila Tita on 02-20-2024 ALT [Catalytic activity/Vol] 15 U/L Low 16-61 [facility] Serum or plasma albumin ry urement (mass/volume)Ordered By: Sushila Rivers on 02-20-2024 Albumin [Mass/Vol] 2.3 g/dL Low 3.2-5.0 [facility] Serum or plasma alkaline josue sphatase measurementOrdered By: Sushila Tita on 02-20-2024 ALP [Catalytic activity/Vol] 91 U/L 45-117 [facility] Total proteinOrdered By: Aut ko Rivers on 02-20-2024 Protein [Mass/Vol] 6.1 g/dL Low 6.4-8.2 [facility] Total protein 6.1 g/dL Low 6.4-8.2 [facility] 12 Lead EKGon 02-19-[address] [facility] Basic Metabolic Profile (BMP )on 02-19-2024 BUN/CRE 24.5 RATIO High -20 [facility] Comment on above: Order Comment: 'TROP ' Serial specimen #1, #2 or #3: 1 Performed By: #### L 100.0100, L500.2500, L501.4020 ####[facility] [address] [place], [place], [id number] CA,Total 9.3 mg/dL Normal 8.5-10.1 [facility] Comment on above: Order Comment: 'TROP ' Serial specimen #1, #2 or #3: 1 Performed By: #### L 100.0100, L500.2500, L501.4020 ####[facility] [address] [place], [address] Chloride [Moles/Vol] 104 mmol/L Normal 98-107 [facility] Comment on above: Order Comment: 'TROP ' Serial specimen #1, #2 or #3: 1 Performed By: #### L 100.0100, L500.2500, L501.4020 ####[facility] [address] [place], [address] CO2 [Moles/Vol] 26.0 mmol/L Normal 21.0-32.0 [facility] Comment on above: Order Comment: 'TROP ' Serial specimen #1, #2 or #3: 1 Performed By: #### L 100.0100, L500.2500, L501.4020 ####[facility] [address] [place], [address] Creatinine [Mass/Vol] 0.73 mg/dL Normal 0.70-1.30 [facility] Comment on above: Order Comment: 'TROP ' Serial specimen #1, #2 or #3: 1 Result Comment: The validity of the calculated GFR GFRAA in patients over70 years has not been determined. Clinical correlation isessential. Performed By: #### L 100.0100, L500.2500, L501.4020 ####[facility] [address] [place], [address] ECRCL 77.13 ml/min Normal [facility] Comment on above: Order Comment: 'TROP ' Serial specimen #1, #2 or #3: 1 Performed By: #### L 100.0100, L500.2500, L501.4020 ####[facility] [address] [place], [address] EST GFR - AA 132 mL/min Normal >60 [facility] Comment on above: Order Comment: 'TROP ' Serial specimen #1, #2 or #3: 1 Result Comment: Afri can Lebanese GFR Calc Performed By: #### L 100.0100, L500.2500, L501.4020 ####[facility] [address] [place], [address] GAP 7 Normal 5-15 [facility] Comment on above: Order Comment: 'TROP ' Serial specimen #1, #2 or #3: 1 Performed By: #### L 100.0100, L500.2500, L501.4020 ####[facility] [address] [place], [address] GFR/1.73 sq M.predicted among non-blacks MDRD (S/P/Bld) [Vol rate/Area] 109 mL/min/{1.73_m2} Normal >60 [facility] Comment on above: Order Comment: 'TROP ' Serial specimen #1, #2 or #3: 1 Result Comment: Non- GFR Calc Performed By: #### L 100.0100, L500.2500, L501.4020 ####[facility] [address] [place], [address] Glucose [Mass/Vol] 120 mg/dL High 74-106 [facility] Comment on above: Order Comment: 'TROP ' Serial specimen #1, #2 or #3: 1 Result Comment: Fast ing Glucose result from 100 to 125 mg/dLsuggests IMPAIRED HOMEOSTASIS per A.D.A. criteria. Performed By: #### L 100.0100, L500.2500, L501.4020 ####[facility] [address] [place], [address] Potassium [Moles/Vol] 4.9 mmol/L Normal 3.5-5.1 [facility] Comment on above: Order Comment: 'TROP ' Serial specimen #1, #2 or #3: 1 Performed By: #### L 100.0100, L500.2500, L501.4020 ####[facility] [address] [place], [address] Sodium [Moles/Vol] 137 mmol/L Normal 136-145 [facility] Comment on above: Order Comment: 'TROP ' Serial specimen #1, #2 or #3: 1 Performed By: #### L 100.0100, L500.2500, L501.4020 ####[facility] [address] [place], [address] Urea nitrogen [Mass/Vol] 18 mg/dL Normal 7-18 [facility] Comment on above: Order Comment: 'TROP ' Serial specimen #1, #2 or #3: 1 Performed By: #### L 100.0100, L500.2500, L501.4020 ####[facility] [address] [place], [address] CBC W/Diff, Automatedon 12-2 0-2024 Absolute Lymph 0.43 X10 3/uL Low 0.83-4.51 [facility] Comment on above: Performed By: #### L 100.0100, L500.2500, L501.4020 ####[facility] [address] [place], [address] Absolute Neut 11.0 X10 3/uL High 2.0-7.7 [facility] Comment on above: Performed By: #### L 100.0100, L500.2500, L501.4020 ####[facility] [address] [place], [address] Basophils/100 WBC (Bld) 0.2 % Normal 0-1 [facility] Comment on above: Performed By: #### L 100.0100, L500.2500, L501.4020 ####[facility] [address] [place], [address] Eosinophils/100 WBC (Bld) 0.2 % Normal 0-5 [facility] Comment on above: Performed By: #### L 100.0100, L500.2500, L501.4020 ####[facility] [address] [place], [address] Erythrocyte distribution width (RBC) [Ratio] 15.9 % High 11.6-14.6 [facility] Comment on above: Performed By: #### L 100.0100, L500.2500, L501.4020 ####[facility] [address] [place], [address] Hematocrit (Bld) [Volume fraction] 38.6 % Low 40-54 [facility] Comment on above: Performed By: #### L 100.0100, L500.2500, L501.4020 ####[facility] [address] [place], [address] Hemoglobin (Bld) [Mass/Vol] 11.4 g/dL Low 13.0-16.5 [facility] Comment on above: Performed By: #### L 100.0100, L500.2500, L501.4020 ####[facility] [address] [place], [address] IG% 1.300 High 0.0-0.9 [facility] Comment on above: Result Comment: IG% - Immature Granulocytes (promyelocytes, myelocytes andmetamyelocytes) > 1% indicates that a LEFT SHIFT is Present. Performed By: #### L 100.0100, L500.2500, L501.4020 ####[facility] [address] [place], [address] Lymphocytes/100 WBC (Bld) 3.6 % Low 19-41 [facility] Comment on above: Performed By: #### L 100.0100, L500.2500, L501.4020 ####[facility] [address] [place], [address] MCH (RBC) [Entitic mass] 26.2 pg Low 27.0-32.0 [facility] Comment on above: Performed By: #### L 100.0100, L500.2500, L501.4020 ####[facility] [address] [place], [address] MCHC (RBC) [Mass/Vol] 29.5 g/dL Low 32-36 [facility] Comment on above: Performed By: #### L 100.0100, L500.2500, L501.4020 ####[facility] [address] [place], [address] MCV (RBC) [Entitic vol] 88.7 fL Normal 80-94 [facility] Comment on above: Performed By: #### L 100.0100, L500.2500, L501.4020 ####[facility] [address] [place], [address] Monocytes/100 WBC (Bld) 2.4 % Normal 0-10 [facility] Comment on above: Performed By: #### L 100.0100, L500.2500, L501.4020 ####[facility] [address] [place], [address] Neutrophils/100 WBC (Bld) 92.3 % High 47-70 [facility] Comment on above: Performed By: #### L 100.0100, L500.2500, L501.4020 ####[facility] [address] [place], [address] Nucleated RBC (Bld) [#/Vol] 0.2 10*3/uL Normal 0-5 [facility] Comment on above: Performed By: #### L 100.0100, L500.2500, L501.4020 ####[facility] [address] [place], [address] Platelet mean volume (Bld) [Entitic vol] 8.8 fL Normal 6.2-12.0 [facility] Comment on above: Performed By: #### L 100.0100, L500.2500, L501.4020 ####[facility] [address] [place], [address] Platelets (Bld) [#/Vol] 408 10*3/uL Normal 150-450 [facility] Comment on above: Performed By: #### L 100.0100, L500.2500, L501.4020 ####[facility] [address] [place], [address] RBC (Bld) [#/Vol] 4.35 10*6/uL Low 4.6-6.2 [facility] Comment on above: Performed By: #### L 100.0100, L500.2500, L501.4020 ####[facility] [address] [place], [address] RDW SD 51.8 fl High 35.1-43.9 [facility] Comment on above: Performed By: #### L 100.0100, L500.2500, L501.4020 ####[facility] [address] [place], [address] WBC (Bld) [#/Vol] 11.9 10*3/uL High 4.4-11.0 [facility] Comment on above: Performed By: #### L 100.0100, L500.2500, L501.4020 ####[facility] [address] [place], [address] Chest PA and Lateralon 02-18 Chest PA and Lateral Normal [facility] Emergency Department Summary on 02-19-2024 Emergency Department Summary Normal [facility] H AND P Exam - Hospitaliston 02-19-2024 H&P Exam - Hospitalist Normal [facility] Influenza virus A and B and SARS-CoV-2 (COVID-19) and Respiratory syncytial virus RNAOrdered By: Sushila Rivers on 02-19-2024 SARS-CoV-2 (COVID-19) RNA DORYS+probe Ql (Unsp spec) [facility] L501.4020on 02-19-2024 TROPONIN-I HS 51 pg/mL Normal 3.0-78.0 [facility] Comment on above: Order Comment: 'TROP ' Serial specimen #1, #2 or #3: 1 Result Comment: Plea Note: New Test Units and Gender Specific Reference Ranges. For more information see Policy Stat Procedure [place]erson High Sensitivity Troponin (TNIH) and attachments. Performed By: #### L 100.0100, L500.2500, L501.4020 ####[facility] [address] [place], [address] M100.678on 02-19-2024 M100.678 Pending SARS-CoV-2 (COVID 19) Negative INFLUENZA A Negative INFLUENZA B Negative RSV PCR Negative Normal [facility] Comment on above: Performed By: #### M 100.678 ####[facility] [address] [place], [address] Magnesiumon 02-19-2024 Magnesium [Mass/Vol] 2.3 mg/dL Normal 1.6-2.6 [facility] Comment on above: Order Comment: Comme nts: may add to ED labs Performed By: #### L 509.7000, L501.5200 ####[facility] [address] [place], [address] Magnesium measurementOrdered By: Sushila Rivers on 02-19-2024 Magnesium [Mass/Vol] 2.3 mg/dL 1.6-2.6 [facility] Magnesium measurement 2.3 mg/dL 1.6-2.6 [facility] Procalcitoninon 02-19-2024 Procalcitonin 0.26 ng/mL High 0.00-0.09 [facility] Comment on above: Result Comment: A [...] obtained. Performed By: #### L 509.7000, L501.5200 ####[facility] [address] [facility] [place], [address] Procalcitonin [Mass/Vol]Orde red By: Sushila Rivers on 02-19-2024 Procalcitonin 0.26 ng/mL High 0.00-0.09 [facility] Comment on above: A procalcitonin (PCT [...] Serum procalcitonin measurement 0.26 ng/mL High 0.00-0.09 [facility] RESPIRATORY PANEL MOLECULARo n 02-19-[address] [facility] Comment on above: Performed By: #### M 100.638 ####[facility] [address] [place], [place], [address] Respiratory pathogens DNA an d RNA panel DORYS+probe (Resp)Ordered By: Sushila Rivers on 02-19-2024 Respiratory Panel (PCR) [facility] Troponin IOrdered By: Kelly Marques on 02-19-2024 Troponin I High Sensitivity 51 pg/mL 3.0-78.0 [facility] Comment on above: Please Note: New Rebecca t Units and Gender Specific Reference Ranges. For more information see Policy Stat Procedure [place] High Sensitivity Troponin (TNIH) and attachments. Troponin I 51 pg/mL 3.0-78.0 [facility] CNPNon 02-18-2024 CNPN Normal [facility] PVR ANK/JUARES/TOE MARTITA VAS LAB on 02-17-2024 PVR ANK/JUARES/TOE MARTITA VAS LAB Normal [facility] US ABD AORTA COMPLETE VAS LA Bon 02-17-2024 US ABD AORTA COMPLETE VAS LAB Normal [facility] CNOVon 02-16-2024 CNOV Normal [facility] Gastroenterology Visit Repor ton 02-11-2024 Gastroenterology Visit Report Normal [facility] CNOVon 02-05-2024 CNOV Normal [facility] US VENOUS INCOMPETENCY MARTITA V LABon 02-04-2024 US VENOUS INCOMPETENCY MARTITA VAS LAB Normal [facility] CREATININE BLDon 02-01-2024 Creatinine [Mass/Vol] 0.87 mg/dL Normal 0.73-1.22 [facility] Comment on above: Order Comment: Speci men Type: BLOOD SPECIMENOrdering Facility: [facility] Address: [address] [place] [address] Performed By: #### C RET1 ####[facility] [id number] [place] [address] [place] Creatinine and Glomerular filtration rate.predicted panel (S/P/Bld) 87 mL/min/1.73m??? Normal >=60 [facility] Comment on above: Order Comment: Speci men Type: BLOOD SPECIMENOrdering Facility: [facility] Address: [address] [place] [address] Result Comment: Karey mated Glomerular Filtration Rate [...] actual GFR. Performed By: #### C RET1 ####[facility] [id number] [address] [place] CNOVon 01-21-2024 CNOV Normal [facility] Bacteria Spec Resp Culton Bacteria identified Respiratory culture Nom (Unsp spec) Abnormal [facility] Comment on above: Performed By: #### 3 2355-0 ####[facility] LABCLIA [id number] [address] [place] CNPNon 01-20-2024 CNPN Normal [facility] CNOVon 01-19-2024 CNOV Normal [facility] CT CHEST WO IVCONon 01-12-20 CT CHEST WO IVCON Normal [facility] CNPNon 01-08-2024 CNPN Normal [facility] Brain/Head without Contrasto n 01-07-2024 Brain/Head without Contrast Normal [facility] Emergency Department Summary on 01-07-2024 Emergency Department Summary Normal [facility] Spine Cervical without Contr ason 01-07-2024 Spine Cervical without Contras Normal [facility] CNOVon 01-05-2024 CNOV Normal [facility] CNPNon 01-05-2024 CNPN Normal [facility] XR ANKLE 3V AP/LAT/OBL LTon 01-05-2024 XR ANKLE 3V AP/LAT/OBL LT Normal [facility] CNOVon 12-24-2023 CNOV Normal [facility] CNOVon 12-23-2023 CNOV Normal [facility] CNPNon 12-22-2023 CNPN Normal [facility] CNOVon 12-21-2023 CNOV Normal [facility] CNPNon 12-15-2023 CNPN Normal [facility] CNPNon 12-11-2023 CNPN Normal [facility] Bacteria Spec Resp Culton Bacteria identified Respiratory culture Nom (Unsp spec) Abnormal [facility] Comment on above: Performed By: #### 3 2355-0 ####[facility] LABCLIA [id number] [address] [place] CBC W Auto Differential pane l (Bld)on 12-08-2023 Basophils (Bld) [#/Vol] [facility] Basophils/100 WBC (Bld) 0.2 % [facility] Differential cell count method Nom (Bld) Auto [facility] Eosinophils (Bld) [#/Vol] [facility] Eosinophils/100 WBC (Bld) 0.0 % [facility] Erythrocyte distribution width (RBC) [Ratio] 16.6 % High 11.5 - 15.0 % [facility] Hematocrit (Bld) [Volume fraction] 40.0 % 39.0 - 51.0 % [facility] Hemoglobin (Bld) [Mass/Vol] 11.8 g/dL Low 13.0 - 17.0 g/dL [facility] Immature granulocytes (Bld) [#/Vol] 0.05 10*3/uL [facility] Immature granulocytes/100 WBC (Bld) 0.4 % [facility] Interpretation and review of laboratory results Abnormal [facility] Lymphocytes (Bld) [#/Vol] 0.49 10*3/uL Low [facility] Lymphocytes/100 WBC (Bld) 4.0 % [facility] MCH (RBC) [Entitic mass] 27.4 pg 26.0 - 34.0 pg [facility] MCHC (RBC) [Mass/Vol] 29.5 g/dL Low 30.5 - 36.0 g/dL [facility] MCV (RBC) [Entitic vol] 92.8 fL 80.0 - 100.0 fL [facility] Monocytes (Bld) [#/Vol] 0.37 10*3/uL [facility] Monocytes/100 WBC (Bld) 3.0 % [facility] Neutrophils (Bld) [#/Vol] 11.33 10*3/uL High [facility] Neutrophils/100 WBC (Bld) 92.4 % [facility] Nucleated RBC (Bld) [#/Vol] NINF [facility] Nucleated RBC/100 WBC (Bld) [Ratio] 0.0 % /100 WBC [facility] Platelet mean volume (Bld) [Entitic vol] 9.8 fL 9.0 - 12.7 fL [facility] Platelets (Bld) [#/Vol] 171 10*3/uL [facility] RBC (Bld) [#/Vol] 4.31 10*6/uL 4.20 - 6.00 m/uL [facility] WBC (Bld) [#/Vol] 12.26 10*3/uL High [facility] Basophils (Bld) [#/Vol] 10*3/uL Normal <0.11 [facility] Comment on above: Order Comment: Speci men Type: BLOOD SPECIMENOrdering Facility: [facility] Address: [address] [place] [address] Performed By: #### 5 7021-8 ####[facility] [id number] [place] [address] [place] Basophils/100 WBC (Bld) 0.2 % Normal [facility] Comment on above: Order Comment: Speci men Type: BLOOD SPECIMENOrdering Facility: [facility] Address: [address] [place] [address] Performed By: #### 5 7021-8 ####[facility] [id number] [place] [address] [place] Differential cell count method Nom (Bld) Auto Normal [facility] Comment on above: Order Comment: Speci men Type: BLOOD SPECIMENOrdering Facility: [facility] Address: [address] [place] [address] Performed By: #### 5 7021-8 ####[facility] [id number] [place] [address] [place] Eosinophils (Bld) [#/Vol] 10*3/uL Normal <0.46 [facility] Comment on above: Order Comment: Speci men Type: BLOOD SPECIMENOrdering Facility: [facility] Address: [address] [place] [address] Performed By: #### 5 7021-8 ####[facility] [id number] [place] [address] [place] Eosinophils/100 WBC (Bld) 0.0 % Normal [facility] Comment on above: Order Comment: Speci men Type: BLOOD SPECIMENOrdering Facility: [facility] Address: [address] [place] [address] Performed By: #### 5 7021-8 ####[facility] [id number] [place] [address] [place] Erythrocyte distribution width (RBC) [Ratio] 16.6 % High 11.5-15.0 [facility] Comment on above: Order Comment: Speci men Type: BLOOD SPECIMENOrdering Facility: [facility] Address: [address] [place] [address] Performed By: #### 5 7021-8 ####[facility] [id number] [place] [address] [place] Hematocrit (Bld) [Volume fraction] 40.0 % Normal 39.0-51.0 [facility] Comment on above: Order Comment: Speci men Type: BLOOD SPECIMENOrdering Facility: [facility] Address: [address] [place] [address] Performed By: #### 5 7021-8 ####[facility] HOSPITALLIA [id number] [place] [address] [place] Hemoglobin (Bld) [Mass/Vol] 11.8 g/dL Low 13.0-17.0 [facility] Comment on above: Order Comment: Speci men Type: BLOOD SPECIMENOrdering Facility: [facility] Address: [address] [place] [address] Performed By: #### 5 7021-8 ####[facility] MILLWNCLIA [id number] [place] [address] [place] Immature granulocytes (Bld) [#/Vol] 0.05 10*3/uL Normal <0.10 [facility] Comment on above: Order Comment: Speci men Type: BLOOD SPECIMENOrdering Facility: [facility] Address: [address] [place] [address] Performed By: #### 5 7021-8 ####[facility]ITALWNCLIA [id number] [place] [address] [place] Immature granulocytes/100 WBC (Bld) 0.4 % Normal [facility] Comment on above: Order Comment: Speci men Type: BLOOD SPECIMENOrdering Facility: [facility] Address: [address] [place] [address] Performed By: #### 5 7021-8 ####[facility]ITALNCLIA [id number] [place] [address] [place] Lymphocytes (Bld) [#/Vol] 0.49 10*3/uL Low 1.00-4.00 [facility] Comment on above: Order Comment: Speci men Type: BLOOD SPECIMENOrdering Facility: [facility] Address: [address] [place] [address] Performed By: #### 5 7021-8 ####[facility] MILLTOWNCLIA [id number] [place] [address] [place] Lymphocytes/100 WBC (Bld) 4.0 % Normal [facility] Comment on above: Order Comment: Speci men Type: BLOOD SPECIMENOrdering Facility: [facility] Address: [address] [place] [address] Performed By: #### 5 7021-8 ####[facility] MILLWNCLIA [id number] [place] [address] [place] MCH (RBC) [Entitic mass] 27.4 pg Normal 26.0-34.0 [facility] Comment on above: Order Comment: Speci men Type: BLOOD SPECIMENOrdering Facility: [facility] Address: [address] [place] [address] Performed By: #### 5 7021-8 ####[facility]ITALMARQUESSAN [facility]PITAL [id number] [address] [place] MCHC (RBC) [Mass/Vol] 29.5 g/dL Low 30.5-36.0 [facility] Comment on above: Order Comment: Speci men Type: BLOOD SPECIMENOrdering Facility: [facility] Address: [address] [place] [address] Performed By: #### 5 7021-8 ####[facility] [id number] [address] [place] MCV (RBC) [Entitic vol] 92.8 fL Normal 80.0-100.0 [facility] Comment on above: Order Comment: Speci men Type: BLOOD SPECIMENOrdering Facility: [facility] Address: [address] [place] [address] Performed By: #### 5 7021-8 ####[facility] HOSPITALMARQUESAngelique [id number] [place] [address] [place] Monocytes (Bld) [#/Vol] 0.37 10*3/uL Normal <0.87 [facility] Comment on above: Order Comment: Speci men Type: BLOOD SPECIMENOrdering Facility: [facility] Address: [address] [place] [address] Performed By: #### 5 7021-8 ####[facility]ITALNCS[facility] [id number] [place] [address] [place] Monocytes/100 WBC (Bld) 3.0 % Normal [facility] Comment on above: Order Comment: Speci men Type: BLOOD SPECIMENOrdering Facility: [facility] Address: [address] [place] [address] Performed By: #### 5 7021-8 ####[facility]ITALNCLIA [id number] [place] [address] [place] Neutrophils (Bld) [#/Vol] 11.33 10*3/uL High 1.45-7.50 [facility] Comment on above: Order Comment: Speci men Type: BLOOD SPECIMENOrdering Facility: [facility] Address: [address] [place] [address] Performed By: #### 5 7021-8 ####[facility] [id number] [place] [address] [place] Neutrophils/100 WBC (Bld) 92.4 % Normal [facility] Comment on above: Order Comment: Speci men Type: BLOOD SPECIMENOrdering Facility: [facility] Address: [address] [place] [address] Performed By: #### 5 7021-8 ####[facility] [id number] [place] [address] [place] Nucleated RBC (Bld) [#/Vol] 10*3/uL Normal <0.01 [facility] Comment on above: Order Comment: Speci men Type: BLOOD SPECIMENOrdering Facility: [facility] Address: [address] [place] [address] Performed By: #### 5 7021-8 ####[facility] [id number] [place] [address] [place] Nucleated RBC/100 WBC (Bld) [Ratio] 0.0 /100 WBC Normal [facility] Comment on above: Order Comment: Speci men Type: BLOOD SPECIMENOrdering Facility: [facility] Address: [address] [place] [address] Performed By: #### 5 7021-8 ####[facility] ALEKSEYMT ZIONNCLIA [id number] [place] [address] [place] Platelet mean volume (Bld) [Entitic vol] 9.8 fL Normal 9.0-12.7 [facility] Comment on above: Order Comment: Speci men Type: BLOOD SPECIMENOrdering Facility: [facility] Address: [address] [place], [place] [address] Performed By: #### 5 7021-8 ####[facility] HOSPITALNCA [id number] [place] [address] [place] Platelets (Bld) [#/Vol] 171 10*3/uL Normal 150-400 [facility] Comment on above: Order Comment: Speci men Type: BLOOD SPECIMENOrdering Facility: [facility] Address: [address] [place], [place] [address] Performed By: #### 5 7021-8 ####[facility]ITALNCLIA [id number] [place] [address] [place] RBC (Bld) [#/Vol] 4.31 10*6/uL Normal 4.20-6.00 [facility] Comment on above: Order Comment: Speci men Type: BLOOD SPECIMENOrdering Facility: [facility] Address: [address] [place] [id number] Performed By: #### 5 7021-8 ####[facility]CL[facility] [id number] [place] [address] [place] WBC (Bld) [#/Vol] 12.26 10*3/uL High 3.70-11.00 [facility] Comment on above: Order Comment: Speci men Type: BLOOD SPECIMENOrdering Facility: [facility] Address: [address] [place], [place] [id number] Performed By: #### 5 7021-8 ####[facility] [id number] [place] [address] [place] CNOVon 12-08-2023 CNOV Normal [facility] CNOVon 12-07-2023 CNOV Normal [facility] CNPNon 11-25-2023 CNPN Normal [facility] Basic Metabolic Profile (BMP )on 11-23-2023 BUN Normal -18 [facility] Comment on above: Result Comment: Canc elled via OM: Order cancelled - Patient discharged Performed By: #### L 100.0100, L500.2500 ####[facility] [address] [place], [address] BUN/CRE Normal 10-20 [facility] Comment on above: Result Comment: Canc elled via OM: Order cancelled - Patient discharged Performed By: #### L 100.0100, L500.2500 ####[facility] [address] [place], [address] CA,Total Normal 8.5-10.1 [facility] Comment on above: Result Comment: Canc elled via OM: Order cancelled - Patient discharged Performed By: #### L 100.0100, L500.2500 ####[facility] [address] [place], [address] CL Normal 98-107 [facility] Comment on above: Result Comment: Canc elled via OM: Order cancelled - Patient discharged Performed By: #### L 100.0100, L500.2500 ####[facility] [address] [place], [address] CO2 Normal 21.0-32.0 [facility] Comment on above: Result Comment: Canc elled via OM: Order cancelled - Patient discharged Performed By: #### L 100.0100, L500.2500 ####[facility] [address] [place], [address] CREAT,SERUM Normal 0.70-1.30 [facility] Comment on above: Result Comment: Canc elled via OM: Order cancelled - Patient discharged Performed By: #### L 100.0100, L500.2500 ####[facility] [address] [place], [address] EST GFR Normal >60 [facility] Comment on above: Result Comment: Canc elled via OM: Order cancelled - Patient discharged Performed By: #### L 100.0100, L500.2500 ####[facility] [address] [place], [address] EST GFR - AA Normal >60 [facility] Comment on above: Result Comment: Canc elled via OM: Order cancelled - Patient discharged Performed By: #### L 100.0100, L500.2500 ####[facility] [address] [place], [address] GAP Normal 5-15 [facility] Comment on above: Result Comment: Canc elled via OM: Order cancelled - Patient discharged Performed By: #### L 100.0100, L500.2500 ####[facility] [address] [place], [address] GLU Normal 74-106 [facility] Comment on above: Result Comment: Canc elled via OM: Order cancelled - Patient discharged Performed By: #### L 100.0100, L500.2500 ####[facility] [address] [place], [address] Potassium Normal 3.5-5.1 [facility] Comment on above: Result Comment: Canc elled via OM: Order cancelled - Patient discharged Performed By: #### L 100.0100, L500.2500 ####[facility] [address] [place], [address] Basic Metabolic Profile (BMP) Normal 136-145 [facility] Comment on above: Result Comment: Canc elled via OM: Order cancelled - Patient discharged Performed By: #### L 100.0100, L500.2500 ####[facility] [address] [place], [address] CBC W/Diff, Automatedon 09-2 Absolute Neut Normal 2.0-7.7 [facility] Comment on above: Result Comment: Canc elled via OM: Order cancelled - Patient discharged Performed By: #### L 100.0100, L500.2500 ####[facility] [address] [place], [address] HCT Normal 40-54 [facility] Comment on above: Result Comment: Canc elled via OM: Order cancelled - Patient discharged Performed By: #### L 100.0100, L500.2500 ####[facility] [address] [place], [address] HGB Normal 13.0-16.5 [facility] Comment on above: Result Comment: Canc elled via OM: Order cancelled - Patient discharged Performed By: #### L 100.0100, L500.2500 ####[facility] [address] [place], [address] MCH Normal 27.0-32.0 [facility] Comment on above: Result Comment: Canc elled via OM: Order cancelled - Patient discharged Performed By: #### L 100.0100, L500.2500 ####[facility] [address] [place], [address] MCHC Normal 32-36 [facility] Comment on above: Result Comment: Canc elled via OM: Order cancelled - Patient discharged Performed By: #### L 100.0100, L500.2500 ####[facility] [address] [place], [address] MCV Normal 80-94 [facility] Comment on above: Result Comment: Canc elled via OM: Order cancelled - Patient discharged Performed By: #### L 100.0100, L500.2500 ####[facility] [address] [place], [address] NEUT% Normal 47-70 [facility] Comment on above: Result Comment: Canc elled via OM: Order cancelled - Patient discharged Performed By: #### L 100.0100, L500.2500 ####[facility] [address] [place], [address] PLT Normal 150-450 [facility] Comment on above: Result Comment: Canc elled via OM: Order cancelled - Patient discharged Performed By: #### L 100.0100, L500.2500 ####[facility] [address] [place], [address] RBC Normal 4.6-6.2 [facility] Comment on above: Result Comment: Canc elled via OM: Order cancelled - Patient discharged Performed By: #### L 100.0100, L500.2500 ####[facility] [address] [place], [address] RDW CV Normal 11.6-14.6 [facility] Comment on above: Result Comment: Canc elled via OM: Order cancelled - Patient discharged Performed By: #### L 100.0100, L500.2500 ####[facility] [address] [place], [address] RDW SD Normal 35.1-43.9 [facility] Comment on above: Result Comment: Canc elled via OM: Order cancelled - Patient discharged Performed By: #### L 100.0100, L500.2500 ####[facility] [address] [place], [address] WBC Normal 4.4-11.0 [facility] Comment on above: Result Comment: Canc elled via OM: Order cancelled - Patient discharged Performed By: #### L 100.0100, L500.2500 ####[facility] [address] [place], [address] CNOVon 11-23-2023 CNOV Normal [facility] XR ANKLE 3V AP/LAT/OBL LTon 11-23-2023 XR ANKLE 3V AP/LAT/OBL LT Normal [facility] CNPNon 11-22-2023 CNPN Normal [facility] CNOVon 11-19-2023 CNOV Normal [facility] Basic Metabolic Profile (BMP )on 11-16-2023 BUN Normal 7-18 [facility] Comment on above: Result Comment: Canc elled via OM: Order cancelled - Patient discharged Performed By: #### L 100.0100, L500.2500 ####[facility] [address] [place], [address] BUN/CRE Normal 10-20 [facility] Comment on above: Result Comment: Canc elled via OM: Order cancelled - Patient discharged Performed By: #### L 100.0100, L500.2500 ####[facility] [address] [place], [address] CA,Total Normal 8.5-10.1 [facility] Comment on above: Result Comment: Canc elled via OM: Order cancelled - Patient discharged Performed By: #### L 100.0100, L500.2500 ####[facility] [address] [place], [address] CL Normal 98-107 [facility] Comment on above: Result Comment: Canc elled via OM: Order cancelled - Patient discharged Performed By: #### L 100.0100, L500.2500 ####[facility] [address] [place], [address] CO2 Normal 21.0-32.0 [facility] Comment on above: Result Comment: Canc elled via OM: Order cancelled - Patient discharged Performed By: #### L 100.0100, L500.2500 ####[facility] [address] [place], [address] CREAT,SERUM Normal 0.70-1.30 [facility] Comment on above: Result Comment: Canc elled via OM: Order cancelled - Patient discharged Performed By: #### L 100.0100, L500.2500 ####[facility] [address] [place], [address] EST GFR Normal >60 [facility] Comment on above: Result Comment: Canc elled via OM: Order cancelled - Patient discharged Performed By: #### L 100.0100, L500.2500 ####[facility] [address] [place], [address] EST GFR - AA Normal >60 [facility] Comment on above: Result Comment: Canc elled via OM: Order cancelled - Patient discharged Performed By: #### L 100.0100, L500.2500 ####[facility] [address] [place], [address] GAP Normal 5-15 [facility] Comment on above: Result Comment: Canc elled via OM: Order cancelled - Patient discharged Performed By: #### L 100.0100, L500.2500 ####[facility] [address] [place], [address] GLU Normal 74-106 [facility] Comment on above: Result Comment: Canc elled via OM: Order cancelled - Patient discharged Performed By: #### L 100.0100, L500.2500 ####[facility] [address] [place], [address] Potassium Normal 3.5-5.1 [facility] Comment on above: Result Comment: Canc elled via OM: Order cancelled - Patient discharged Performed By: #### L 100.0100, L500.2500 ####[facility] [address] [place], [address] Basic Metabolic Profile (BMP) Normal 136-145 [facility] Comment on above: Result Comment: Canc elled via OM: Order cancelled - Patient discharged Performed By: #### L 100.0100, L500.2500 ####[facility] [address] [place], [address] CBC W/Diff, Automatedon - Absolute Neut Normal 2.0-7.7 [facility] Comment on above: Result Comment: Canc elled via OM: Order cancelled - Patient discharged Performed By: #### L 100.0100, L500.2500 ####[facility] [address] [place], [address] HCT Normal 40-54 [facility] Comment on above: Result Comment: Canc elled via OM: Order cancelled - Patient discharged Performed By: #### L 100.0100, L500.2500 ####[facility] [address] [place], [address] HGB Normal 13.0-16.5 [facility] Comment on above: Result Comment: Canc elled via OM: Order cancelled - Patient discharged Performed By: #### L 100.0100, L500.2500 ####[facility] [address] [place], [address] MCH Normal 27.0-32.0 [facility] Comment on above: Result Comment: Canc elled via OM: Order cancelled - Patient discharged Performed By: #### L 100.0100, L500.2500 ####[facility] [address] [place], [address] MCHC Normal 32-36 [facility] Comment on above: Result Comment: Canc elled via OM: Order cancelled - Patient discharged Performed By: #### L 100.0100, L500.2500 ####[facility] [address] [place], [address] MCV Normal 80-94 [facility] Comment on above: Result Comment: Canc elled via OM: Order cancelled - Patient discharged Performed By: #### L 100.0100, L500.2500 ####[facility] [address] [place], [address] NEUT% Normal 47-70 [facility] Comment on above: Result Comment: Canc elled via OM: Order cancelled - Patient discharged Performed By: #### L 100.0100, L500.2500 ####[facility] [address] [place], [address] PLT Normal 150-450 [facility] Comment on above: Result Comment: Canc elled via OM: Order cancelled - Patient discharged Performed By: #### L 100.0100, L500.2500 ####[facility] [address] [place], [address] RBC Normal 4.6-6.2 [facility] Comment on above: Result Comment: Canc elled via OM: Order cancelled - Patient discharged Performed By: #### L 100.0100, L500.2500 ####[facility] [address] [place], [address] RDW CV Normal 11.6-14.6 [facility] Comment on above: Result Comment: Canc elled via OM: Order cancelled - Patient discharged Performed By: #### L 100.0100, L500.2500 ####[facility] [address] [place], [address] RDW SD Normal 35.1-43.9 [facility] Comment on above: Result Comment: Canc elled via OM: Order cancelled - Patient discharged Performed By: #### L 100.0100, L500.2500 ####[facility] [address] [place], [address] WBC Normal 4.4-11.0 [facility] Comment on above: Result Comment: Canc elled via OM: Order cancelled - Patient discharged Performed By: #### L 100.0100, L500.2500 ####[facility] [address] [place], [address] CNPNon 11-16-2023 CNPN Normal [facility] CREATININE BLDon 11-13-2023 Creatinine [Mass/Vol] 0.61 mg/dL Low 0.73-1.22 [facility] Comment on above: Order Comment: Speci men Type: BLOOD SPECIMENOrdering Facility: [facility] Address: [address] [place] [address] Performed By: #### C RET1 ####[facility] [id number] [place] [address] [place] Creatinine and Glomerular filtration rate.predicted panel (S/P/Bld) 96 mL/min/1.73m??? Normal >=60 [facility] Comment on above: Order Comment: Speci men Type: BLOOD SPECIMENOrdering Facility: [facility] Address: [address] [place] [address] Result Comment: Karey mated Glomerular Filtration Rate [...] actual GFR. Performed By: #### C RET1 ####[facility] [id number] [place] [address] [place] CT CHEST W IVCONon CT CHEST W IVCON Normal [facility] CBC W/Diff, Automatedon 10-31 Absolute Lymph 0.34 X10 3/uL Low 0.83-4.51 [facility] Comment on above: Performed By: #### L 100.0100, L503.6030 ####[facility] [address] [place], [address] Absolute Neut 12.1 X10 3/uL High 2.0-7.7 [facility] Comment on above: Performed By: #### L 100.0100, L503.6030 ####[facility] [address] [place], [address] Basophils/100 WBC (Bld) 0.2 % Normal 0-1 [facility] Comment on above: Performed By: #### L 100.0100, L503.6030 ####[facility] [address] [place], [address] Eosinophils/100 WBC (Bld) 0.1 % Normal 0-5 [facility] Comment on above: Performed By: #### L 100.0100, L503.6030 ####[facility] [address] [place], [address] Erythrocyte distribution width (RBC) [Ratio] 15.8 % High 11.6-14.6 [facility] Comment on above: Performed By: #### L 100.0100, L503.6030 ####[facility] [address] [place], [address] Hematocrit (Bld) [Volume fraction] 35.7 % Low 40-54 [facility] Comment on above: Performed By: #### L 100.0100, L503.6030 ####[facility] [address] [place], [address] Hemoglobin (Bld) [Mass/Vol] 10.4 g/dL Low 13.0-16.5 [facility] Comment on above: Performed By: #### L 100.0100, L503.6030 ####[facility] [address] [place], [address] IG% 1.100 High 0.0-0.9 [facility] Comment on above: Result Comment: IG% - Immature Granulocytes (promyelocytes, myelocytes andmetamyelocytes) > 1% indicates that a LEFT SHIFT is Present. Performed By: #### L 100.0100, L503.6030 ####[facility] [address] [place], [address] Lymphocytes/100 WBC (Bld) 2.6 % Low 19-41 [facility] Comment on above: Performed By: #### L 100.0100, L503.6030 ####[facility] [address] [place], [address] MCH (RBC) [Entitic mass] 26.7 pg Low 27.0-32.0 [facility] Comment on above: Performed By: #### L 100.0100, L503.6030 ####[facility] [address] [place], [address] MCHC (RBC) [Mass/Vol] 29.1 g/dL Low 32-36 [facility] Comment on above: Performed By: #### L 100.0100, L503.6030 ####[facility] [address] [place], [address] MCV (RBC) [Entitic vol] 91.8 fL Normal 80-94 [facility] Comment on above: Performed By: #### L 100.0100, L503.6030 ####[facility] [address] [place], [address] Monocytes/100 WBC (Bld) 3.0 % Normal 0-10 [facility] Comment on above: Performed By: #### L 100.0100, L503.6030 ####[facility] [address] [place], [address] Neutrophils/100 WBC (Bld) 93.0 % High 47-70 [facility] Comment on above: Performed By: #### L 100.0100, L503.6030 ####[facility] [address] [place], [address] Nucleated RBC (Bld) [#/Vol] 0.2 10*3/uL Normal 0-5 [facility] Comment on above: Performed By: #### L 100.0100, L503.6030 ####[facility] [address] [place], [address] Platelet mean volume (Bld) [Entitic vol] 8.6 fL Normal 6.2-12.0 [facility] Comment on above: Performed By: #### L 100.0100, L503.6030 ####[facility] [address] [place], [address] Platelets (Bld) [#/Vol] 270 10*3/uL Normal 150-450 [facility] Comment on above: Performed By: #### L 100.0100, L503.6030 ####[facility] [address] [place], [address] RBC (Bld) [#/Vol] 3.89 10*6/uL Low 4.6-6.2 [facility] Comment on above: Performed By: #### L 100.0100, L503.6030 ####[facility] [address] [place], [address] RDW SD 53.2 fl High 35.1-43.9 [facility] Comment on above: Performed By: #### L 100.0100, L503.6030 ####[facility] [address] [place], [address] WBC (Bld) [#/Vol] 13.1 10*3/uL High 4.4-11.0 [facility] Comment on above: Performed By: #### L 100.0100, L503.6030 ####[facility] [address] [place], [address] Gastroenterology Visit Repor ton 11-11-2023 Gastroenterology Visit Report Normal [facility] Iron+Iron Binding Capacityon 11-11-2023 Iron [Mass/Vol] 29 ug/dL Low 65-175 [facility] Comment on above: Performed By: #### L 100.0100, L503.6030 ####[facility] [address] [place], [address] IRON SATURATION 12.4 Low 15.0-55.0 [facility] Comment on above: Performed By: #### L 100.0100, L503.6030 ####[facility] [address] [place], [address] TIBC 234 ug/dL Low 250-450 [facility] Comment on above: Performed By: #### L 100.0100, L503.6030 ####[facility] [address] [place], [address] Basic Metabolic Profile (BMP )on 11-09-2023 BUN Normal 7-18 [facility] Comment on above: Result Comment: Canc elled via OM: Order cancelled - Patient discharged Performed By: #### L 100.0100, L500.2500 ####[facility] [address] [place], [address] BUN/CRE Normal 10-20 [facility] Comment on above: Result Comment: Canc elled via OM: Order cancelled - Patient discharged Performed By: #### L 100.0100, L500.2500 ####[facility] [address] [place], [address] CA,Total Normal 8.5-10.1 [facility] Comment on above: Result Comment: Canc elled via OM: Order cancelled - Patient discharged Performed By: #### L 100.0100, L500.2500 ####[facility] [address] [place], [address] CL Normal 98-107 [facility] Comment on above: Result Comment: Canc elled via OM: Order cancelled - Patient discharged Performed By: #### L 100.0100, L500.2500 ####[facility] [address] [place], [address] CO2 Normal 21.0-32.0 [facility] Comment on above: Result Comment: Canc elled via OM: Order cancelled - Patient discharged Performed By: #### L 100.0100, L500.2500 ####[facility] [address] [place], [address] CREAT,SERUM Normal 0.70-1.30 [facility] Comment on above: Result Comment: Canc elled via OM: Order cancelled - Patient discharged Performed By: #### L 100.0100, L500.2500 ####[facility] [address] [place], [address] EST GFR Normal >60 [facility] Comment on above: Result Comment: Canc elled via OM: Order cancelled - Patient discharged Performed By: #### L 100.0100, L500.2500 ####[facility] [address] [place], [address] EST GFR - AA Normal >60 [facility] Comment on above: Result Comment: Canc elled via OM: Order cancelled - Patient discharged Performed By: #### L 100.0100, L500.2500 ####[facility] [address] [place], [address] GAP Normal 5-15 [facility] Comment on above: Result Comment: Canc elled via OM: Order cancelled - Patient discharged Performed By: #### L 100.0100, L500.2500 ####[facility] [address] [place], [address] GLU Normal 74-106 [facility] Comment on above: Result Comment: Canc elled via OM: Order cancelled - Patient discharged Performed By: #### L 100.0100, L500.2500 ####[facility] [address] [place], [address] Potassium Normal 3.5-5.1 [facility] Comment on above: Result Comment: Canc elled via OM: Order cancelled - Patient discharged Performed By: #### L 100.0100, L500.2500 ####[facility] [address] [place], [address] Basic Metabolic Profile (BMP) Normal 136-145 [facility] Comment on above: Result Comment: Canc elled via OM: Order cancelled - Patient discharged Performed By: #### L 100.0100, L500.2500 ####[facility] [address] [place], [address] CBC W/Diff, Automatedon 09-0 9-2023 Absolute Neut Normal 2.0-7.7 [facility] Comment on above: Result Comment: Canc elled via OM: Order cancelled - Patient discharged Performed By: #### L 100.0100, L500.2500 ####[facility] [address] [place], [address] HCT Normal 40-54 [facility] Comment on above: Result Comment: Canc elled via OM: Order cancelled - Patient discharged Performed By: #### L 100.0100, L500.2500 ####[facility] [address] [place], [address] HGB Normal 13.0-16.5 [facility] Comment on above: Result Comment: Canc elled via OM: Order cancelled - Patient discharged Performed By: #### L 100.0100, L500.2500 ####[facility] [address] [place], [address] MCH Normal 27.0-32.0 [facility] Comment on above: Result Comment: Canc elled via OM: Order cancelled - Patient discharged Performed By: #### L 100.0100, L500.2500 ####[facility] [address] [place], [address] MCHC Normal 32-36 [facility] Comment on above: Result Comment: Canc elled via OM: Order cancelled - Patient discharged Performed By: #### L 100.0100, L500.2500 ####[facility] [address] [place], [address] MCV Normal 80-94 [facility] Comment on above: Result Comment: Canc elled via OM: Order cancelled - Patient discharged Performed By: #### L 100.0100, L500.2500 ####[facility] [address] [place], [address] NEUT% Normal 47-70 [facility] Comment on above: Result Comment: Canc elled via OM: Order cancelled - Patient discharged Performed By: #### L 100.0100, L500.2500 ####[facility] [address] [place], [address] PLT Normal 150-450 [facility] Comment on above: Result Comment: Canc elled via OM: Order cancelled - Patient discharged Performed By: #### L 100.0100, L500.2500 ####[facility] [address] [place], [address] RBC Normal 4.6-6.2 [facility] Comment on above: Result Comment: Canc elled via OM: Order cancelled - Patient discharged Performed By: #### L 100.0100, L500.2500 ####[facility] [address] [place], [address] RDW CV Normal 11.6-14.6 [facility] Comment on above: Result Comment: Canc elled via OM: Order cancelled - Patient discharged Performed By: #### L 100.0100, L500.2500 ####[facility] [address] [place], [address] RDW SD Normal 35.1-43.9 [facility] Comment on above: Result Comment: Canc elled via OM: Order cancelled - Patient discharged Performed By: #### L 100.0100, L500.2500 ####[facility] [address] [place], [address] WBC Normal 4.4-11.0 [facility] Comment on above: Result Comment: Canc elled via OM: Order cancelled - Patient discharged Performed By: #### L 100.0100, L500.2500 ####[facility] [address] [place], [address] CNPNon 11-04-2023 CNPN Normal [facility] CNPNon 11-03-2023 CNPN Normal [facility] Basic Metabolic Profile (BMP )on 11-02-2023 BUN Normal 7-18 [facility] Comment on above: Result Comment: Canc elled via OM: Order cancelled - Patient discharged Performed By: #### L 100.0100, L500.2500 ####[facility] [address] [place], [address] BUN/CRE Normal 10-20 [facility] Comment on above: Result Comment: Canc elled via OM: Order cancelled - Patient discharged Performed By: #### L 100.0100, L500.2500 ####[facility] [address] [place], [address] CA,Total Normal 8.5-10.1 [facility] Comment on above: Result Comment: Canc elled via OM: Order cancelled - Patient discharged Performed By: #### L 100.0100, L500.2500 ####[facility] [address] [place], [address] CL Normal 98-107 [facility] Comment on above: Result Comment: Canc elled via OM: Order cancelled - Patient discharged Performed By: #### L 100.0100, L500.2500 ####[facility] [address] [place], [address] CO2 Normal 21.0-32.0 [facility] Comment on above: Result Comment: Canc elled via OM: Order cancelled - Patient discharged Performed By: #### L 100.0100, L500.2500 ####[facility] [address] [place], [address] CREAT,SERUM Normal 0.70-1.30 [facility] Comment on above: Result Comment: Canc elled via OM: Order cancelled - Patient discharged Performed By: #### L 100.0100, L500.2500 ####[facility] [address] [place], [address] EST GFR Normal >60 [facility] Comment on above: Result Comment: Canc elled via OM: Order cancelled - Patient discharged Performed By: #### L 100.0100, L500.2500 ####[facility] [address] [place], [address] EST GFR - AA Normal >60 [facility] Comment on above: Result Comment: Canc elled via OM: Order cancelled - Patient discharged Performed By: #### L 100.0100, L500.2500 ####[facility] [address] [place], [address] GAP Normal 5-15 [facility] Comment on above: Result Comment: Canc elled via OM: Order cancelled - Patient discharged Performed By: #### L 100.0100, L500.2500 ####[facility] [address] [place], [address] GLU Normal 74-106 [facility] Comment on above: Result Comment: Canc elled via OM: Order cancelled - Patient discharged Performed By: #### L 100.0100, L500.2500 ####[facility] [address] [place], [address] Potassium Normal 3.5-5.1 [facility] Comment on above: Result Comment: Canc elled via OM: Order cancelled - Patient discharged Performed By: #### L 100.0100, L500.2500 ####[facility] [address] [place], [address] Basic Metabolic Profile (BMP) Normal 136-145 [facility] Comment on above: Result Comment: Canc elled via OM: Order cancelled - Patient discharged Performed By: #### L 100.0100, L500.2500 ####[facility] [address] [place], [address] CBC W/Diff, Automatedon 09-0 -2023 Absolute Neut Normal 2.0-7.7 [facility] Comment on above: Result Comment: Canc elled via OM: Order cancelled - Patient discharged Performed By: #### L 100.0100, L500.2500 ####[facility] [address] [place], [address] HCT Normal 40-54 [facility] Comment on above: Result Comment: Canc elled via OM: Order cancelled - Patient discharged Performed By: #### L 100.0100, L500.2500 ####[facility] [address] [place], [address] HGB Normal 13.0-16.5 [facility] Comment on above: Result Comment: Canc elled via OM: Order cancelled - Patient discharged Performed By: #### L 100.0100, L500.2500 ####[facility] [address] [place], [address] MCH Normal 27.0-32.0 [facility] Comment on above: Result Comment: Canc elled via OM: Order cancelled - Patient discharged Performed By: #### L 100.0100, L500.2500 ####[facility] [address] [place], [address] MCHC Normal 32-36 [facility] Comment on above: Result Comment: Canc elled via OM: Order cancelled - Patient discharged Performed By: #### L 100.0100, L500.2500 ####[facility] [address] [place], [address] MCV Normal 80-94 [facility] Comment on above: Result Comment: Canc elled via OM: Order cancelled - Patient discharged Performed By: #### L 100.0100, L500.2500 ####[facility] [address] [place], [address] NEUT% Normal 47-70 [facility] Comment on above: Result Comment: Canc elled via OM: Order cancelled - Patient discharged Performed By: #### L 100.0100, L500.2500 ####[facility] [address] [place], [address] PLT Normal 150-450 [facility] Comment on above: Result Comment: Canc elled via OM: Order cancelled - Patient discharged Performed By: #### L 100.0100, L500.2500 ####[facility] [address] [place], [address] RBC Normal 4.6-6.2 [facility] Comment on above: Result Comment: Canc elled via OM: Order cancelled - Patient discharged Performed By: #### L 100.0100, L500.2500 ####[facility] [address] [place], [address] RDW CV Normal 11.6-14.6 [facility] Comment on above: Result Comment: Canc elled via OM: Order cancelled - Patient discharged Performed By: #### L 100.0100, L500.2500 ####[facility] [address] [place], [address] RDW SD Normal 35.1-43.9 [facility] Comment on above: Result Comment: Canc elled via OM: Order cancelled - Patient discharged Performed By: #### L 100.0100, L500.2500 ####[facility] [address] [place], [address] WBC Normal 4.4-11.0 [facility] Comment on above: Result Comment: Canc elled via OM: Order cancelled - Patient discharged Performed By: #### L 100.0100, L500.2500 ####[facility] [address] [place], [address] CNOVon 10-29-2023 CNOV Normal [facility] CNPNon 10-29-2023 CNPN Normal [facility] CNPNon 10-28-2023 CNPN Normal [facility] CNPNon 10-27-2023 CNPN Normal [facility] Basic Metabolic Profile (BMP )on 10-26-2023 BUN Normal 7-18 [facility] Comment on above: Result Comment: Canc elled via OM: Order cancelled - Patient discharged Performed By: #### L 500.2500, L100.0100 ####[facility] [address] [place], [address] BUN/CRE Normal 10-20 [facility] Comment on above: Result Comment: Canc elled via OM: Order cancelled - Patient discharged Performed By: #### L 500.2500, L100.0100 ####[facility] [address] [place], [address] CA,Total Normal 8.5-10.1 [facility] Comment on above: Result Comment: Canc elled via OM: Order cancelled - Patient discharged Performed By: #### L 500.2500, L100.0100 ####[facility] [address] [place], [address] CL Normal 98-107 [facility] Comment on above: Result Comment: Canc elled via OM: Order cancelled - Patient discharged Performed By: #### L 500.2500, L100.0100 ####[facility] [address] [place], [address] CO2 Normal 21.0-32.0 [facility] Comment on above: Result Comment: Canc elled via OM: Order cancelled - Patient discharged Performed By: #### L 500.2500, L100.0100 ####[facility] [address] [place], [address] CREAT,SERUM Normal 0.70-1.30 [facility] Comment on above: Result Comment: Canc elled via OM: Order cancelled - Patient discharged Performed By: #### L 500.2500, L100.0100 ####[facility] [address] [place], [address] EST GFR Normal >60 [facility] Comment on above: Result Comment: Canc elled via OM: Order cancelled - Patient discharged Performed By: #### L 500.2500, L100.0100 ####[facility] [address] [place], [address] EST GFR - AA Normal >60 [facility] Comment on above: Result Comment: Canc elled via OM: Order cancelled - Patient discharged Performed By: #### L 500.2500, L100.0100 ####[facility] [address] [place], [address] GAP Normal 5-15 [facility] Comment on above: Result Comment: Canc elled via OM: Order cancelled - Patient discharged Performed By: #### L 500.2500, L100.0100 ####[facility] [address] [place], [address] GLU Normal 74-106 [facility] Comment on above: Result Comment: Canc elled via OM: Order cancelled - Patient discharged Performed By: #### L 500.2500, L100.0100 ####[facility] [address] [place], [address] Potassium Normal 3.5-5.1 [facility] Comment on above: Result Comment: Canc elled via OM: Order cancelled - Patient discharged Performed By: #### L 500.2500, L100.0100 ####[facility] [address] [place], [address] Basic Metabolic Profile (BMP) Normal 136-145 [facility] Comment on above: Result Comment: Canc elled via OM: Order cancelled - Patient discharged Performed By: #### L 500.2500, L100.0100 ####[facility] [address] [place], [address] CBC W/Diff, Automatedon 08-2 Absolute Neut Normal 2.0-7.7 [facility] Comment on above: Result Comment: Canc elled via OM: Order cancelled - Patient discharged Performed By: #### L 500.2500, L100.0100 ####[facility] [address] [place], [address] HCT Normal 40-54 [facility] Comment on above: Result Comment: Canc elled via OM: Order cancelled - Patient discharged Performed By: #### L 500.2500, L100.0100 ####[facility] [address] [place], [address] HGB Normal 13.0-16.5 [facility] Comment on above: Result Comment: Canc elled via OM: Order cancelled - Patient discharged Performed By: #### L 500.2500, L100.0100 ####[facility] [address] [place], [address] MCH Normal 27.0-32.0 [facility] Comment on above: Result Comment: Canc elled via OM: Order cancelled - Patient discharged Performed By: #### L 500.2500, L100.0100 ####[facility] [address] [place], [address] MCHC Normal 32-36 [facility] Comment on above: Result Comment: Canc elled via OM: Order cancelled - Patient discharged Performed By: #### L 500.2500, L100.0100 ####[facility] [address] [place], [address] MCV Normal 80-94 [facility] Comment on above: Result Comment: Canc elled via OM: Order cancelled - Patient discharged Performed By: #### L 500.2500, L100.0100 ####[facility] [address] [place], [address] NEUT% Normal 47-70 [facility] Comment on above: Result Comment: Canc elled via OM: Order cancelled - Patient discharged Performed By: #### L 500.2500, L100.0100 ####[facility] [address] [place], [address] PLT Normal 150-450 [facility] Comment on above: Result Comment: Canc elled via OM: Order cancelled - Patient discharged Performed By: #### L 500.2500, L100.0100 ####[facility] [address] [place], [address] RBC Normal 4.6-6.2 [facility] Comment on above: Result Comment: Canc elled via OM: Order cancelled - Patient discharged Performed By: #### L 500.2500, L100.0100 ####[facility] [address] [place], [address] RDW CV Normal 11.6-14.6 [facility] Comment on above: Result Comment: Canc elled via OM: Order cancelled - Patient discharged Performed By: #### L 500.2500, L100.0100 ####[facility] [address] [place], [address] RDW SD Normal 35.1-43.9 [facility] Comment on above: Result Comment: Canc elled via OM: Order cancelled - Patient discharged Performed By: #### L 500.2500, L100.0100 ####[facility] [address] [place], [address] WBC Normal 4.4-11.0 [facility] Comment on above: Result Comment: Canc elled via OM: Order cancelled - Patient discharged Performed By: #### L 500.2500, L100.0100 ####[facility] [address] [place], [address] CNPNon 10-26-2023 CNPN Normal [facility] CNPNon 10-23-2023 CNPN Normal [facility] COVID 19 AG RAPID (GILMAR Douglas)on 10-22-2023 SARS-CoV-2 (COVID-19) RNA DORYS+probe Ql (Unsp spec) Normal [facility] Comment on above: Performed By: #### M 100.505 ####[facility] [address] [place], [address] Lipid Profileon 10-20-2023 Cholesterol [Mass/Vol] 122 mg/dL Normal 200 [facility] Comment on above: Result Comment: <200 mg/dL Desirable 200-240 mg/dL Borderline >240 mg/dL High Risk Performed By: #### L 500.4100 ####[facility] [address] [place], [address] Cholesterol in HDL [Mass/Vol] 51 mg/dL Normal [facility] Comment on above: Result Comment: The drugs N-Acetylcysteine and Metamizole may falselydepress this assay. Reference Range HDL <40 mg/dL Low HDL Cholesterol HDL >or= 60 mg/dL High HDL Cholesterol Performed By: #### L 500.4100 ####[facility] [address] [place], [address] Cholesterol in LDL [Mass/Vol] 60 mg/dL Normal 0-130 [facility] Comment on above: Performed By: #### L 500.4100 ####[facility] [address] [place], [address] Cholesterol in VLDL [Mass/Vol] 11 mg/dL Normal 5-40 [facility] Comment on above: Performed By: #### L 500.4100 ####[facility] [address] [place], [address] Triglyceride [Mass/Vol] 54 mg/dL Normal [facility] Comment on above: Result Comment: The drugs N-Acetylcysteine and Metamizole may falselydepress this assay.Serum Triglycerides Reference Interval Normal <150 mg/dL Borderline high 150 - 199 mg/dL High 200 - 499 mg/dL Very High > or = 500 mg/dL Performed By: #### L 500.4100 ####[facility] [address] [place], [address] Abdomen Single Viewon 2023 Abdomen Single View Normal [facility] Basic Metabolic Profile (BMP )on 10-18-2023 BUN/CRE 34.3 RATIO High 10-20 [facility] Comment on above: Performed By: #### L 500.2500, L100.0100 ####[facility] [address] [place], [address] CA,Total 8.0 mg/dL Low 8.5-10.1 [facility] Comment on above: Performed By: #### L 500.2500, L100.0100 ####[facility] [address] [place], [address] Chloride [Moles/Vol] 107 mmol/L Normal 98-107 [facility] Comment on above: Performed By: #### L 500.2500, L100.0100 ####[facility] [address] [place], [address] CO2 [Moles/Vol] 29.0 mmol/L Normal 21.0-32.0 [facility] Comment on above: Performed By: #### L 500.2500, L100.0100 ####[facility] [address] [place], [address] Creatinine [Mass/Vol] 0.67 mg/dL Low 0.70-1.30 [facility] Comment on above: Result Comment: The validity of the calculated GFR GFRAA in patients over70 years has not been determined. Clinical correlation isessential. Performed By: #### L 500.2500, L100.0100 ####[facility] [address] [place], [address] ECRCL 77.13 ml/min Normal [facility] Comment on above: Performed By: #### L 500.2500, L100.0100 ####[facility] [address] [place], [address] EST GFR - AA 146 mL/min Normal >60 [facility] Comment on above: Result Comment: Afri can Lebanese GFR Calc Performed By: #### L 500.2500, L100.0100 ####[facility] [address] [place], [address] GAP 5 Normal 5-15 [facility] Comment on above: Performed By: #### L 500.2500, L100.0100 ####[facility] [address] [place], [address] GFR/1.73 sq M.predicted among non-blacks MDRD (S/P/Bld) [Vol rate/Area] 121 mL/min/{1.73_m2} Normal >60 [facility] Comment on above: Result Comment: Non- GFR Calc Performed By: #### L 500.2500, L100.0100 ####[facility] [address] [place], [address] Glucose [Mass/Vol] 107 mg/dL High 74-106 [facility] Comment on above: Result Comment: Fast ing Glucose result from 100 to 125 mg/dLsuggests IMPAIRED HOMEOSTASIS per A.D.A. criteria. Performed By: #### L 500.2500, L100.0100 ####[facility] [address] [place], [address] Potassium [Moles/Vol] 3.9 mmol/L Normal 3.5-5.1 [facility] Comment on above: Performed By: #### L 500.2500, L100.0100 ####[facility] [address] [place], [address] Sodium [Moles/Vol] 141 mmol/L Normal 136-145 [facility] Comment on above: Performed By: #### L 500.2500, L100.0100 ####[facility] [address] [place], [address] Urea nitrogen [Mass/Vol] 23 mg/dL High 7-18 [facility] Comment on above: Performed By: #### L 500.2500, L100.0100 ####[facility] [address] [place], [address] CBC W/Diff, Automatedon 09-30 Absolute Lymph 0.42 X10 3/uL Low 0.83-4.51 [facility] Comment on above: Performed By: #### L 500.2500, L100.0100 ####[facility] [address] [place], [address] Absolute Neut 6.3 X10 3/uL Normal 2.0-7.7 [facility] Comment on above: Performed By: #### L 500.2500, L100.0100 ####[facility] [address] [place], [address] Basophils/100 WBC (Bld) 0.0 % Normal 0-1 [facility] Comment on above: Performed By: #### L 500.2500, L100.0100 ####[facility] [address] [place], [address] Eosinophils/100 WBC (Bld) 0.0 % Normal 0-5 [facility] Comment on above: Performed By: #### L 500.2500, L100.0100 ####[facility] [address] [place], [address] Erythrocyte distribution width (RBC) [Ratio] 16.0 % High 11.6-14.6 [facility] Comment on above: Performed By: #### L 500.2500, L100.0100 ####[facility] [address] [place], [address] Hematocrit (Bld) [Volume fraction] 31.2 % Low 40-54 [facility] Comment on above: Performed By: #### L 500.2500, L100.0100 ####[facility] [address] [place], [address] Hemoglobin (Bld) [Mass/Vol] 9.4 g/dL Low 13.0-16.5 [facility] Comment on above: Performed By: #### L 500.2500, L100.0100 ####[facility] [address] [place], [address] IG% 1.000 High 0.0-0.9 [facility] Comment on above: Result Comment: IG% - Immature Granulocytes (promyelocytes, myelocytes andmetamyelocytes) > 1% indicates that a LEFT SHIFT is Present. Performed By: #### L 500.2500, L100.0100 ####[facility] [address] [place], [address] Lymphocytes/100 WBC (Bld) 5.9 % Low 19-41 [facility] Comment on above: Performed By: #### L 500.2500, L100.0100 ####[facility] [address] [place], [address] MCH (RBC) [Entitic mass] 27.6 pg Normal 27.0-32.0 [facility] Comment on above: Performed By: #### L 500.2500, L100.0100 ####[facility] [address] [place], [address] MCHC (RBC) [Mass/Vol] 30.1 g/dL Low 32-36 [facility] Comment on above: Performed By: #### L 500.2500, L100.0100 ####[facility] [address] [place], [address] MCV (RBC) [Entitic vol] 91.5 fL Normal 80-94 [facility] Comment on above: Performed By: #### L 500.2500, L100.0100 ####[facility] [address] [place], [address] Monocytes/100 WBC (Bld) 4.4 % Normal 0-10 [facility] Comment on above: Performed By: #### L 500.2500, L100.0100 ####[facility] [address] [place], [address] Neutrophils/100 WBC (Bld) 88.7 % High 47-70 [facility] Comment on above: Performed By: #### L 500.2500, L100.0100 ####[facility] [address] [place], [address] Nucleated RBC (Bld) [#/Vol] 0.8 10*3/uL Normal 0-5 [facility] Comment on above: Performed By: #### L 500.2500, L100.0100 ####[facility] [address] [place], [address] Platelet mean volume (Bld) [Entitic vol] 9.5 fL Normal 6.2-12.0 [facility] Comment on above: Performed By: #### L 500.2500, L100.0100 ####[facility] [address] [place], [address] Platelets (Bld) [#/Vol] 233 10*3/uL Normal 150-450 [facility] Comment on above: Performed By: #### L 500.2500, L100.0100 ####[facility] [address] [place], [address] RBC (Bld) [#/Vol] 3.41 10*6/uL Low 4.6-6.2 [facility] Comment on above: Performed By: #### L 500.2500, L100.0100 ####[facility] [address] [place], [address] RDW SD 52.6 fl High 35.1-43.9 [facility] Comment on above: Performed By: #### L 500.2500, L100.0100 ####[facility] [address] [place], [address] WBC (Bld) [#/Vol] 7.1 10*3/uL Normal 4.4-11.0 [facility] Comment on above: Performed By: #### L 500.2500, L100.0100 ####[facility] [address] [place], [address] Respiratory Cultureon [address] [facility] Comment on above: Performed By: #### M 100.2000, M100.2400 ####[facility] [address] [place], [address] Basic Metabolic Profile (BMP )on 10-17-2023 BUN/CRE 31.4 RATIO High 10-20 [facility] Comment on above: Performed By: #### L 500.2500, L100.0500 ####[facility] [address] [place], [address] CA,Total 8.2 mg/dL Low 8.5-10.1 [facility] Comment on above: Performed By: #### L 500.2500, L100.0500 ####[facility] [address] [place], [address] Chloride [Moles/Vol] 108 mmol/L High 98-107 [facility] Comment on above: Performed By: #### L 500.2500, L100.0500 ####[facility] [address] [place], [address] CO2 [Moles/Vol] 32.0 mmol/L Normal 21.0-32.0 [facility] Comment on above: Performed By: #### L 500.2500, L100.0500 ####[facility] [address] [place], [address] Creatinine [Mass/Vol] 0.70 mg/dL Normal 0.70-1.30 [facility] Comment on above: Result Comment: The validity of the calculated GFR GFRAA in patients over70 years has not been determined. Clinical correlation isessential. Performed By: #### L 500.2500, L100.0500 ####[facility] [address] [place], [address] ECRCL 77.13 ml/min Normal [facility] Comment on above: Performed By: #### L 500.2500, L100.0500 ####[facility] [address] [place], [address] EST GFR - AA 139 mL/min Normal >60 [facility] Comment on above: Result Comment: Afri can Lebanese GFR Calc Performed By: #### L 500.2500, L100.0500 ####[facility] [address] [place], [address] GAP 1 Low 5-15 [facility] Comment on above: Performed By: #### L 500.2500, L100.0500 ####[facility] [address] [place], [address] GFR/1.73 sq M.predicted among non-blacks MDRD (S/P/Bld) [Vol rate/Area] 115 mL/min/{1.73_m2} Normal >60 [facility] Comment on above: Result Comment: Non- GFR Calc Performed By: #### L 500.2500, L100.0500 ####[facility] [address] [place], [address] Glucose [Mass/Vol] 117 mg/dL High 74-106 [facility] Comment on above: Result Comment: Fast ing Glucose result from 100 to 125 mg/dLsuggests IMPAIRED HOMEOSTASIS per A.D.A. criteria. Performed By: #### L 500.2500, L100.0500 ####[facility] [address] [place], [address] Potassium [Moles/Vol] 3.9 mmol/L Normal 3.5-5.1 [facility] Comment on above: Performed By: #### L 500.2500, L100.0500 ####[facility] [address] [place], [address] Sodium [Moles/Vol] 141 mmol/L Normal 136-145 [facility] Comment on above: Performed By: #### L 500.2500, L100.0500 ####[facility] [address] [place], [address] Urea nitrogen [Mass/Vol] 22 mg/dL High 7-18 [facility] Comment on above: Performed By: #### L 500.2500, L100.0500 ####[facility] [address], [address] CBC-Complete Blood Cnt No Di ffon 10-17-2023 Erythrocyte distribution width (RBC) [Ratio] 16.1 % High 11.6-14.6 [facility] Comment on above: Performed By: #### L 500.2500, L100.0500 ####[facility] [address] [place], [address] Hematocrit (Bld) [Volume fraction] 28.6 % Low 40-54 [facility] Comment on above: Performed By: #### L 500.2500, L100.0500 ####[facility] [address] [place], [address] Hemoglobin (Bld) [Mass/Vol] 8.5 g/dL Low 13.0-16.5 [facility] Comment on above: Performed By: #### L 500.2500, L100.0500 ####[facility] [address] [place], [address] MCH (RBC) [Entitic mass] 27.2 pg Normal 27.0-32.0 [facility] Comment on above: Performed By: #### L 500.2500, L100.0500 ####[facility] [address] [place], [address] MCHC (RBC) [Mass/Vol] 29.7 g/dL Low 32-36 [facility] Comment on above: Performed By: #### L 500.2500, L100.0500 ####[facility] [address] [place], [address] MCV (RBC) [Entitic vol] 91.7 fL Normal 80-94 [facility] Comment on above: Performed By: #### L 500.2500, L100.0500 ####[facility] [address] [place], [address] Platelet mean volume (Bld) [Entitic vol] 9.7 fL Normal 6.2-12.0 [facility] Comment on above: Performed By: #### L 500.2500, L100.0500 ####[facility] [address] [place], [address] Platelets (Bld) [#/Vol] 246 10*3/uL Normal 150-450 [facility] Comment on above: Performed By: #### L 500.2500, L100.0500 ####[facility] [address] [place], [address] RBC (Bld) [#/Vol] 3.12 10*6/uL Low 4.6-6.2 [facility] Comment on above: Performed By: #### L 500.2500, L100.0500 ####[facility] [address] [place], [address] RDW SD 53.2 fl High 35.1-43.9 [facility] Comment on above: Performed By: #### L 500.2500, L100.0500 ####[facility] [address] [place], [address] WBC (Bld) [#/Vol] 7.7 10*3/uL Normal 4.4-11.0 [facility] Comment on above: Performed By: #### L 500.2500, L100.0500 ####[facility] [address] [place], [address] Basic Metabolic Profile (BMP )on 10-16-2023 BUN/CRE 35.1 RATIO High 10-20 [facility] Comment on above: Performed By: #### L 100.0100, L500.2500 ####[facility] [address] [place], [address] CA,Total 7.9 mg/dL Low 8.5-10.1 [facility] Comment on above: Performed By: #### L 100.0100, L500.2500 ####[facility] [address] [place], [address] Chloride [Moles/Vol] 107 mmol/L Normal 98-107 [facility] Comment on above: Performed By: #### L 100.0100, L500.2500 ####[facility] [address] [place], [address] CO2 [Moles/Vol] 32.0 mmol/L Normal 21.0-32.0 [facility] Comment on above: Performed By: #### L 100.0100, L500.2500 ####[facility] [address] [place], [address] Creatinine [Mass/Vol] 0.66 mg/dL Low 0.70-1.30 [facility] Comment on above: Result Comment: The validity of the calculated GFR GFRAA in patients over70 years has not been determined. Clinical correlation isessential. Performed By: #### L 100.0100, L500.2500 ####[facility] [address] [place], [address] ECRCL 77.13 ml/min Normal [facility] Comment on above: Performed By: #### L 100.0100, L500.2500 ####[facility] [address] [place], [address] EST GFR - AA 150 mL/min Normal >60 [facility] Comment on above: Result Comment: Afri can Lebanese GFR Calc Performed By: #### L 100.0100, L500.2500 ####[facility] [address] [place], [address] GAP 3 Low 5-15 [facility] Comment on above: Performed By: #### L 100.0100, L500.2500 ####[facility] [address] [place], [address] GFR/1.73 sq M.predicted among non-blacks MDRD (S/P/Bld) [Vol rate/Area] 124 mL/min/{1.73_m2} Normal >60 [facility] Comment on above: Result Comment: Non- GFR Calc Performed By: #### L 100.0100, L500.2500 ####[facility] [facility] [address] [place], [address] Glucose [Mass/Vol] 145 mg/dL High 74-106 [facility] Comment on above: Result Comment: Fast ing Glucose result greater than or equal to 126 mg/dLsuggests DIABETES MELLITUS per A.D.A. criteria. Performed By: #### L 100.0100, L500.2500 ####[facility] [address] [place], [address] Potassium [Moles/Vol] 3.9 mmol/L Normal 3.5-5.1 [facility] Comment on above: Performed By: #### L 100.0100, L500.2500 ####[facility] [address] [place], [address] Sodium [Moles/Vol] 142 mmol/L Normal 136-145 [facility] Comment on above: Performed By: #### L 100.0100, L500.2500 ####[facility] [address] [place], [address] Urea nitrogen [Mass/Vol] 23 mg/dL High 7-18 [facility] Comment on above: Performed By: #### L 100.0100, L500.2500 ####[facility] [address] [place], [address] CBC W/Diff, Automatedon 09-30 Absolute Lymph 0.27 X10 3/uL Low 0.83-4.51 [facility] Comment on above: Performed By: #### L 100.0100, L500.2500 ####[facility] [address] [place], [address] Absolute Neut 9.0 X10 3/uL High 2.0-7.7 [facility] Comment on above: Performed By: #### L 100.0100, L500.2500 ####[facility] [address] [place], [address] Basophils/100 WBC (Bld) 0.1 % Normal 0-1 [facility] Comment on above: Performed By: #### L 100.0100, L500.2500 ####[facility] [address] [place], [address] Eosinophils/100 WBC (Bld) 0.0 % Normal 0-5 [facility] Comment on above: Performed By: #### L 100.0100, L500.2500 ####[facility] [address] [place], [address] Erythrocyte distribution width (RBC) [Ratio] 16.3 % High 11.6-14.6 [facility] Comment on above: Performed By: #### L 100.0100, L500.2500 ####[facility] [address] [place], [address] Hematocrit (Bld) [Volume fraction] 27.6 % Low 40-54 [facility] Comment on above: Performed By: #### L 100.0100, L500.2500 ####[facility] [address] [place], [address] Hemoglobin (Bld) [Mass/Vol] 8.3 g/dL Low 13.0-16.5 [facility] Comment on above: Performed By: #### L 100.0100, L500.2500 ####[facility] [address] [place], [address] IG% 0.500 Normal 0.0-0.9 [facility] Comment on above: Result Comment: IG% - Immature Granulocytes (promyelocytes, myelocytes andmetamyelocytes) > 1% indicates that a LEFT SHIFT is Present. Performed By: #### L 100.0100, L500.2500 ####[facility] [address] [place], [address] Lymphocytes/100 WBC (Bld) 2.8 % Low 19-41 [facility] Comment on above: Performed By: #### L 100.0100, L500.2500 ####[facility] [address] [place], [address] MCH (RBC) [Entitic mass] 27.5 pg Normal 27.0-32.0 [facility] Comment on above: Performed By: #### L 100.0100, L500.2500 ####[facility] [address] [place], [address] MCHC (RBC) [Mass/Vol] 30.1 g/dL Low 32-36 [facility] Comment on above: Performed By: #### L 100.0100, L500.2500 ####[facility] [address] [place], [address] MCV (RBC) [Entitic vol] 91.4 fL Normal 80-94 [facility] Comment on above: Performed By: #### L 100.0100, L500.2500 ####[facility] [address] [place], [address] Monocytes/100 WBC (Bld) 2.2 % Normal 0-10 [facility] Comment on above: Performed By: #### L 100.0100, L500.2500 ####[facility] [address] [place], [address] Neutrophils/100 WBC (Bld) 94.4 % High 47-70 [facility] Comment on above: Performed By: #### L 100.0100, L500.2500 ####[facility] [address] [place], [address] Nucleated RBC (Bld) [#/Vol] 0 10*3/uL Normal 0-5 [facility] Comment on above: Performed By: #### L 100.0100, L500.2500 ####[facility] [address] [place], [address] Platelet mean volume (Bld) [Entitic vol] 9.2 fL Normal 6.2-12.0 [facility] Comment on above: Performed By: #### L 100.0100, L500.2500 ####[facility] [address] [place], [address] Platelets (Bld) [#/Vol] 247 10*3/uL Normal 150-450 [facility] Comment on above: Performed By: #### L 100.0100, L500.2500 ####[facility] [address] [place], [address] RBC (Bld) [#/Vol] 3.02 10*6/uL Low 4.6-6.2 [facility] Comment on above: Performed By: #### L 100.0100, L500.2500 ####[facility] [address] [place], [address] RDW SD 53.0 fl High 35.1-43.9 [facility] Comment on above: Performed By: #### L 100.0100, L500.2500 ####[facility] [address] [place], [address] WBC (Bld) [#/Vol] 9.5 10*3/uL Normal 4.4-11.0 [facility] Comment on above: Performed By: #### L 100.0100, L500.2500 ####[facility] [address] [place], [address] Gram Stainon 10-16-2023 GS Acceptable Specimen? Yes (<25 Epithelial cells per/lpf) Gram Stain No organisms seen Rare White Blood Cells Rare Epithelial cells Normal [facility] Comment on above: Performed By: #### M 100.2000, M100.2400 ####[facility] [address] [place], [address] Basic Metabolic Profile (BMP )on 10-15-2023 BUN/CRE 26.8 RATIO High 10-20 [facility] Comment on above: Performed By: #### L 500.2500, L100.0100 ####[facility] [address] [place], [address] CA,Total 8.1 mg/dL Low 8.5-10.1 [facility] Comment on above: Performed By: #### L 500.2500, L100.0100 ####[facility] [address] [place], [address] Chloride [Moles/Vol] 106 mmol/L Normal 98-107 [facility] Comment on above: Performed By: #### L 500.2500, L100.0100 ####[facility] [address] [place], [address] CO2 [Moles/Vol] 30.0 mmol/L Normal 21.0-32.0 [facility] Comment on above: Performed By: #### L 500.2500, L100.0100 ####[facility] [address] [place], [address] Creatinine [Mass/Vol] 0.67 mg/dL Low 0.70-1.30 [facility] Comment on above: Result Comment: The validity of the calculated GFR GFRAA in patients over70 years has not been determined. Clinical correlation isessential. Performed By: #### L 500.2500, L100.0100 ####[facility] [address] [place], [address] ECRCL 77.13 ml/min Normal [facility] Comment on above: Performed By: #### L 500.2500, L100.0100 ####[facility] [address] [place], [address] EST GFR - AA 146 mL/min Normal >60 [facility] Comment on above: Result Comment: Afri can Lebanese GFR Calc Performed By: #### L 500.2500, L100.0100 ####[facility] [address] [place], [address] GAP 5 Normal 5-15 [facility] Comment on above: Performed By: #### L 500.2500, L100.0100 ####[facility] [address] [place], [address] GFR/1.73 sq M.predicted among non-blacks MDRD (S/P/Bld) [Vol rate/Area] 121 mL/min/{1.73_m2} Normal >60 [facility] Comment on above: Result Comment: Non- GFR Calc Performed By: #### L 500.2500, L100.0100 ####[facility] [address] [place], [address] Glucose [Mass/Vol] 187 mg/dL High 74-106 [facility] Comment on above: Result Comment: Fast ing Glucose result greater than or equal to 126 mg/dLsuggests DIABETES MELLITUS per A.D.A. criteria. Performed By: #### L 500.2500, L100.0100 ####[facility] [address] [place], [address] Potassium [Moles/Vol] 4.1 mmol/L Normal 3.5-5.1 [facility] Comment on above: Performed By: #### L 500.2500, L100.0100 ####[facility] [address] [place], [address] Sodium [Moles/Vol] 141 mmol/L Normal 136-145 [facility] Comment on above: Performed By: #### L 500.2500, L100.0100 ####[facility] [address] [place], [address] Urea nitrogen [Mass/Vol] 18 mg/dL Normal 7-18 [facility] Comment on above: Performed By: #### L 500.2500, L100.0100 ####[facility] [address] [place], [address] CBC W/Diff, Automatedon 09-30-2023 Absolute Lymph 0.25 X10 3/uL Low 0.83-4.51 [facility] Comment on above: Performed By: #### L 500.2500, L100.0100 ####[facility] [address] [place], [address] Absolute Neut 9.4 X10 3/uL High 2.0-7.7 [facility] Comment on above: Performed By: #### L 500.2500, L100.0100 ####[facility] [address] [place], [address] Basophils/100 WBC (Bld) 0.1 % Normal 0-1 [facility] Comment on above: Performed By: #### L 500.2500, L100.0100 ####[facility] [address] [place], [address] Eosinophils/100 WBC (Bld) 0.0 % Normal 0-5 [facility] Comment on above: Performed By: #### L 500.2500, L100.0100 ####[facility] [address] [place], [address] Erythrocyte distribution width (RBC) [Ratio] 16.3 % High 11.6-14.6 [facility] Comment on above: Performed By: #### L 500.2500, L100.0100 ####[facility] [address] [place], [address] Hematocrit (Bld) [Volume fraction] 27.8 % Low 40-54 [facility] Comment on above: Performed By: #### L 500.2500, L100.0100 ####[facility] [address] [place], [address] Hemoglobin (Bld) [Mass/Vol] 9.3 g/dL Low 13.0-16.5 [facility] Comment on above: Performed By: #### L 500.2500, L100.0100 ####[facility] [address] [place], [address] IG% 0.500 Normal 0.0-0.9 [facility] Comment on above: Result Comment: IG% - Immature Granulocytes (promyelocytes, myelocytes andmetamyelocytes) > 1% indicates that a LEFT SHIFT is Present. Performed By: #### L 500.2500, L100.0100 ####[facility] [address] [place], [address] Lymphocytes/100 WBC (Bld) 2.5 % Low 19-41 [facility] Comment on above: Performed By: #### L 500.2500, L100.0100 ####[facility] [address] [place], [address] MCH (RBC) [Entitic mass] 30.4 pg Normal 27.0-32.0 [facility] Comment on above: Performed By: #### L 500.2500, L100.0100 ####[facility] [address] [place], [address] MCHC (RBC) [Mass/Vol] 33.5 g/dL Normal 32-36 [facility] Comment on above: Performed By: #### L 500.2500, L100.0100 ####[facility] [address] [place], [address] MCV (RBC) [Entitic vol] 90.8 fL Normal 80-94 [facility] Comment on above: Performed By: #### L 500.2500, L100.0100 ####[facility] [address] [place], [address] Monocytes/100 WBC (Bld) 1.7 % Normal 0-10 [facility] Comment on above: Performed By: #### L 500.2500, L100.0100 ####[facility] [address] [place], [address] Neutrophils/100 WBC (Bld) 95.2 % High 47-70 [facility] Comment on above: Performed By: #### L 500.2500, L100.0100 ####[facility] [address] [place], [address] Nucleated RBC (Bld) [#/Vol] 0 10*3/uL Normal 0-5 [facility] Comment on above: Performed By: #### L 500.2500, L100.0100 ####[facility] [address] [place], [address] Platelet mean volume (Bld) [Entitic vol] 9.7 fL Normal 6.2-12.0 [facility] Comment on above: Performed By: #### L 500.2500, L100.0100 ####[facility] [address] [place], [address] Platelets (Bld) [#/Vol] 254 10*3/uL Normal 150-450 [facility] Comment on above: Performed By: #### L 500.2500, L100.0100 ####[facility] [address] [place], [address] RBC (Bld) [#/Vol] 3.06 10*6/uL Low 4.6-6.2 [facility] Comment on above: Performed By: #### L 500.2500, L100.0100 ####[facility] [address] [place], [address] RDW SD 53.3 fl High 35.1-43.9 [facility] Comment on above: Performed By: #### L 500.2500, L100.0100 ####[facility] [address] [place], [address] WBC (Bld) [#/Vol] 9.9 10*3/uL Normal 4.4-11.0 [facility] Comment on above: Performed By: #### L 500.2500, L100.0100 ####[facility] [address] [place], [address] Magnesiumon 10-15-2023 Magnesium [Mass/Vol] 2.4 mg/dL Normal 1.6-2.6 [facility] Comment on above: Order Comment: Comme nts: Add onto AM labs if possible Performed By: #### L 501.5200 ####[facility] [address] [place], [address] Basic Metabolic Profile (BMP )on 10-14-2023 BUN/CRE 15.8 RATIO Normal 10-20 [facility] Comment on above: Performed By: #### L 100.0100, L500.2500 ####[facility] [address] [place], [address] CA,Total 8.1 mg/dL Low 8.5-10.1 [facility] Comment on above: Performed By: #### L 100.0100, L500.2500 ####[facility] [address] [place], [address] Chloride [Moles/Vol] 106 mmol/L Normal 98-107 [facility] Comment on above: Performed By: #### L 100.0100, L500.2500 ####[facility] [address] [place], [address] CO2 [Moles/Vol] 26.0 mmol/L Normal 21.0-32.0 [facility] Comment on above: Performed By: #### L 100.0100, L500.2500 ####[facility] [address] [place], [address] Creatinine [Mass/Vol] 0.89 mg/dL Normal 0.70-1.30 [facility] Comment on above: Result Comment: The validity of the calculated GFR GFRAA in patients over70 years has not been determined. Clinical correlation isessential. Performed By: #### L 100.0100, L500.2500 ####[facility] [address] [place], [address] ECRCL 69.33 ml/min Normal [facility] Comment on above: Performed By: #### L 100.0100, L500.2500 ####[facility] [address] [place], [address] EST GFR - AA 106 mL/min Normal >60 [facility] Comment on above: Result Comment: Afri can Lebanese GFR Calc Performed By: #### L 100.0100, L500.2500 ####[facility] [address] [place], [address] GAP 7 Normal 5-15 [facility] Comment on above: Performed By: #### L 100.0100, L500.2500 ####[facility] [address] [place], [address] GFR/1.73 sq M.predicted among non-blacks MDRD (S/P/Bld) [Vol rate/Area] 88 mL/min/{1.73_m2} Normal >60 [facility] Comment on above: Result Comment: Non- GFR Calc Performed By: #### L 100.0100, L500.2500 ####[facility] [address] [place], [address] Glucose [Mass/Vol] 196 mg/dL High 74-106 [facility] Comment on above: Result Comment: Fast ing Glucose result greater than or equal to 126 mg/dLsuggests DIABETES MELLITUS per A.D.A. criteria. Performed By: #### L 100.0100, L500.2500 ####[facility] [address] [place], [address] Potassium [Moles/Vol] 4.7 mmol/L Normal 3.5-5.1 [facility] Comment on above: Result Comment: Mode rate Hemolysis, Result may be falsely increased. Performed By: #### L 100.0100, L500.2500 ####[facility] [address] [place], [address] Sodium [Moles/Vol] 139 mmol/L Normal 136-145 [facility] Comment on above: Performed By: #### L 100.0100, L500.2500 ####[facility] [address] [place], [address] Urea nitrogen [Mass/Vol] 14 mg/dL Normal 7-18 [facility] Comment on above: Performed By: #### L 100.0100, L500.2500 ####[facility] [address] [place], [address] CBC W/Diff, Automatedon 08-03 05-2023 Absolute Lymph 0.26 X10 3/uL Low 0.83-4.51 [facility] Comment on above: Performed By: #### L 100.0100, L500.2500 ####[facility] [address] [place], [address] Absolute Neut 6.6 X10 3/uL Normal 2.0-7.7 [facility] Comment on above: Performed By: #### L 100.0100, L500.2500 ####[facility] [address] [place], [address] Basophils/100 WBC (Bld) 0.0 % Normal 0-1 [facility] Comment on above: Performed By: #### L 100.0100, L500.2500 ####[facility] [address] [place], [address] Eosinophils/100 WBC (Bld) 0.0 % Normal 0-5 [facility] Comment on above: Performed By: #### L 100.0100, L500.2500 ####[facility] [address] [place], [address] Erythrocyte distribution width (RBC) [Ratio] 16.6 % High 11.6-14.6 [facility] Comment on above: Performed By: #### L 100.0100, L500.2500 ####[facility] [address] [place], [address] Hematocrit (Bld) [Volume fraction] 31.5 % Low 40-54 [facility] Comment on above: Performed By: #### L 100.0100, L500.2500 ####[facility] [address] [place], [address] Hemoglobin (Bld) [Mass/Vol] 9.6 g/dL Low 13.0-16.5 [facility] Comment on above: Performed By: #### L 100.0100, L500.2500 ####[facility] [address] [place], [address] IG% 0.900 Normal 0.0-0.9 [facility] Comment on above: Result Comment: IG% - Immature Granulocytes (promyelocytes, myelocytes andmetamyelocytes) > 1% indicates that a LEFT SHIFT is Present. Performed By: #### L 100.0100, L500.2500 ####[facility] [address] [place], [address] Lymphocytes/100 WBC (Bld) 3.7 % Low 19-41 [facility] Comment on above: Performed By: #### L 100.0100, L500.2500 ####[facility] [address] [place], [address] MCH (RBC) [Entitic mass] 28.1 pg Normal 27.0-32.0 [facility] Comment on above: Performed By: #### L 100.0100, L500.2500 ####[facility] [address] [place], [address] MCHC (RBC) [Mass/Vol] 30.5 g/dL Low 32-36 [facility] Comment on above: Performed By: #### L 100.0100, L500.2500 ####[facility] [address] [place], [address] MCV (RBC) [Entitic vol] 92.1 fL Normal 80-94 [facility] Comment on above: Performed By: #### L 100.0100, L500.2500 ####[facility] [address] [place], [address] Monocytes/100 WBC (Bld) 1.0 % Normal 0-10 [facility] Comment on above: Performed By: #### L 100.0100, L500.2500 ####[facility] [address] [place], [address] Neutrophils/100 WBC (Bld) 94.4 % High 47-70 [facility] Comment on above: Performed By: #### L 100.0100, L500.2500 ####[facility] [address] [place], [address] Nucleated RBC (Bld) [#/Vol] 0 10*3/uL Normal 0-5 [facility] Comment on above: Performed By: #### L 100.0100, L500.2500 ####[facility] [address] [place], [address] Platelet mean volume (Bld) [Entitic vol] 10.0 fL Normal 6.2-12.0 [facility] Comment on above: Performed By: #### L 100.0100, L500.2500 ####[facility] [address] [place], [place], [address] Platelets (Bld) [#/Vol] 252 10*3/uL Normal 150-450 [facility] Comment on above: Performed By: #### L 100.0100, L500.2500 ####[facility] [address] [place], [address] RBC (Bld) [#/Vol] 3.42 10*6/uL Low 4.6-6.2 [facility] Comment on above: Performed By: #### L 100.0100, L500.2500 ####[facility] [address] [place], [address] RDW SD 55.4 fl High 35.1-43.9 [facility] Comment on above: Performed By: #### L 100.0100, L500.2500 ####[facility] [address] [place], [address] WBC (Bld) [#/Vol] 7.0 10*3/uL Normal 4.4-11.0 [facility] Comment on above: Performed By: #### L 100.0100, L500.2500 ####[facility] [address] [place], [address] Venous Duplex US - Martita Extre mon 10-14-2023 Venous Duplex US - Martita Extrem Normal [facility] Basic Metabolic Profile (BMP )on 10-13-2023 BUN/CRE 20.0 RATIO Normal 10-20 [facility] Comment on above: Performed By: #### L 100.0100, L500.2500, L501.5200 ####[facility] [address] [place], [address] CA,Total 8.1 mg/dL Low 8.5-10.1 [facility] Comment on above: Performed By: #### L 100.0100, L500.2500, L501.5200 ####[facility] [address] [place], [address] Chloride [Moles/Vol] 108 mmol/L High 98-107 [facility] Comment on above: Performed By: #### L 100.0100, L500.2500, L501.5200 ####[facility] [address] [place], [address] CO2 [Moles/Vol] 28.0 mmol/L Normal 21.0-32.0 [facility] Comment on above: Performed By: #### L 100.0100, L500.2500, L501.5200 ####[facility] [address] [place], [address] Creatinine [Mass/Vol] 0.55 mg/dL Low 0.70-1.30 [facility] Comment on above: Result Comment: The validity of the calculated GFR GFRAA in patients over70 years has not been determined. Clinical correlation isessential. Performed By: #### L 100.0100, L500.2500, L501.5200 ####[facility] [address] [place], [address] ECRCL 77.13 ml/min Normal [facility] Comment on above: Performed By: #### L 100.0100, L500.2500, L501.5200 ####[facility] [address] [place], [address] EST GFR - AA 183 mL/min Normal >60 [facility] Comment on above: Result Comment: Afri can Lebanese GFR Calc Performed By: #### L 100.0100, L500.2500, L501.5200 ####[facility] [address] [place], [address] GAP 4 Low 5-15 [facility] Comment on above: Performed By: #### L 100.0100, L500.2500, L501.5200 ####[facility] [address] [place], [address] GFR/1.73 sq M.predicted among non-blacks MDRD (S/P/Bld) [Vol rate/Area] 152 mL/min/{1.73_m2} Normal >60 [facility] Comment on above: Result Comment: Non- GFR Calc Performed By: #### L 100.0100, L500.2500, L501.5200 ####[facility] [address] [place], [address] Glucose [Mass/Vol] 103 mg/dL Normal 74-106 [facility] Comment on above: Result Comment: Fast ing Glucose result from 100 to 125 mg/dLsuggests IMPAIRED HOMEOSTASIS per A.D.A. criteria. Performed By: #### L 100.0100, L500.2500, L501.5200 ####[facility] [address] [place], [address] Potassium [Moles/Vol] 4.0 mmol/L Normal 3.5-5.1 [facility] Comment on above: Performed By: #### L 100.0100, L500.2500, L501.5200 ####[facility] [address] [place], [address] Sodium [Moles/Vol] 140 mmol/L Normal 136-145 [facility] Comment on above: Performed By: #### L 100.0100, L500.2500, L501.5200 ####[facility] [address] [place], [address] Urea nitrogen [Mass/Vol] 11 mg/dL Normal 7-18 [facility] Comment on above: Performed By: #### L 100.0100, L500.2500, L501.5200 ####[facility] [address] [place], [address] Blood Gases by [facility] 024 LUCY TEST Positive Normal [facility] Comment on above: Performed By: #### L 9000.0800 ####[facility] [address] [place], [address] Base excess Calc (Bld) [Moles/Vol] 3 mmol/L High -2 to +2 [facility] Comment on above: Performed By: #### L 9000.0800 ####[facility] [address] [place], [address] Blood Gas Type ART Normal [facility] Comment on above: Performed By: #### L 9000.0800 ####[facility] [address] [place], [address] CO2 [Moles/Vol] 28 mmol/L Normal [facility] Comment on above: Performed By: #### L 9000.0800 ####[facility] [address] [place], [address] [address] [facility] Comment on above: Performed By: #### L 9000.0800 ####[facility] [address] [place], [address] HCO3 (Bld) [Moles/Vol] 26.9 mmol/L High 22-26 [facility] Comment on above: Performed By: #### L 9000.0800 ####[facility] [address] [place], [address] Mode Not entered Normal [facility] Comment on above: Performed By: #### L 9000.0800 ####[facility] [address] [place], [address] O2 Delivery Dev Cannula Normal [facility] Comment on above: Performed By: #### L 9000.0800 ####[facility] [address] [place], [address] pCO2 38.2 mmHg Normal 35-45 [facility] Comment on above: Performed By: #### L 9000.0800 ####[facility] [address] [place], [address] pH (Bld) 7.46 [pH] High 7.35-7.45 [facility] Comment on above: Performed By: #### L 9000.0800 ####[facility] [address] [place], [address] PO2 73 mmHG Low 75-100 [facility] Comment on above: Performed By: #### L 9000.0800 ####[facility] [address] [place], [address] SITE L Radial Normal [facility] Comment on above: Performed By: #### L 9000.0800 ####[facility] [address] [place], [address] SO2 95 Normal 95-99 [facility] Comment on above: Performed By: #### L 9000.0800 ####[facility] [address] [place], [address] CBC W/Diff, Automatedon 08-03 04-2023 Absolute Lymph 0.51 X10 3/uL Low 0.83-4.51 [facility] Comment on above: Performed By: #### L 100.0100, L500.2500, L501.5200 ####[facility] [address] [place], [address] Absolute Neut 7.8 X10 3/uL High 2.0-7.7 [facility] Comment on above: Performed By: #### L 100.0100, L500.2500, L501.5200 ####[facility] [address] [place], [address] Basophils/100 WBC (Bld) 0.1 % Normal 0-1 [facility] Comment on above: Performed By: #### L 100.0100, L500.2500, L501.5200 ####[facility] [address] [place], [address] Eosinophils/100 WBC (Bld) 0.8 % Normal 0-5 [facility] Comment on above: Performed By: #### L 100.0100, L500.2500, L501.5200 ####[facility] [address] [place], [address] Erythrocyte distribution width (RBC) [Ratio] 16.9 % High 11.6-14.6 [facility] Comment on above: Performed By: #### L 100.0100, L500.2500, L501.5200 ####[facility] [address] [place], [address] Hematocrit (Bld) [Volume fraction] 30.2 % Low 40-54 [facility] Comment on above: Performed By: #### L 100.0100, L500.2500, L501.5200 ####[facility] [address] [place], [address] Hemoglobin (Bld) [Mass/Vol] 9.0 g/dL Low 13.0-16.5 [facility] Comment on above: Performed By: #### L 100.0100, L500.2500, L501.5200 ####[facility] [address] [place], [address] IG% 1.100 High 0.0-0.9 [facility] Comment on above: Result Comment: IG% - Immature Granulocytes (promyelocytes, myelocytes andmetamyelocytes) > 1% indicates that a LEFT SHIFT is Present. Performed By: #### L 100.0100, L500.2500, L501.5200 ####[facility] [address] [place], [address] Lymphocytes/100 WBC (Bld) 5.7 % Low 19-41 [facility] Comment on above: Performed By: #### L 100.0100, L500.2500, L501.5200 ####[facility] [address] [place], [address] MCH (RBC) [Entitic mass] 27.4 pg Normal 27.0-32.0 [facility] Comment on above: Performed By: #### L 100.0100, L500.2500, L501.5200 ####[facility] [address] [place], [address] MCHC (RBC) [Mass/Vol] 29.8 g/dL Low 32-36 [facility] Comment on above: Performed By: #### L 100.0100, L500.2500, L501.5200 ####[facility] [address] [place], [address] MCV (RBC) [Entitic vol] 91.8 fL Normal 80-94 [facility] Comment on above: Performed By: #### L 100.0100, L500.2500, L501.5200 ####[facility] [address] [place], [address] Monocytes/100 WBC (Bld) 6.3 % Normal 0-10 [facility] Comment on above: Performed By: #### L 100.0100, L500.2500, L501.5200 ####[facility] [address] [place], [address] Neutrophils/100 WBC (Bld) 86.0 % High 47-70 [facility] Comment on above: Performed By: #### L 100.0100, L500.2500, L501.5200 ####[facility] [address] [place], [address] Nucleated RBC (Bld) [#/Vol] 0 10*3/uL Normal 0-5 [facility] Comment on above: Performed By: #### L 100.0100, L500.2500, L501.5200 ####[facility] [address] [place], [address] Platelet mean volume (Bld) [Entitic vol] 9.5 fL Normal 6.2-12.0 [facility] Comment on above: Performed By: #### L 100.0100, L500.2500, L501.5200 ####[facility] [address] [place], [address] Platelets (Bld) [#/Vol] 231 10*3/uL Normal 150-450 [facility] Comment on above: Performed By: #### L 100.0100, L500.2500, L501.5200 ####[facility] [address] [place], [address] RBC (Bld) [#/Vol] 3.29 10*6/uL Low 4.6-6.2 [facility] Comment on above: Performed By: #### L 100.0100, L500.2500, L501.5200 ####[facility] [address] [place], [address] RDW SD 54.4 fl High 35.1-43.9 [facility] Comment on above: Performed By: #### L 100.0100, L500.2500, L501.5200 ####[facility] [address] [place], [address] WBC (Bld) [#/Vol] 9.0 10*3/uL Normal 4.4-11.0 [facility] Comment on above: Performed By: #### L 100.0100, L500.2500, L501.5200 ####[facility] [address] [place], [address] Chest 1 View (Portable)on Chest 1 View (Portable) Normal [facility] Magnesiumon 10-13-2023 Magnesium [Mass/Vol] 2.2 mg/dL Normal 1.6-2.6 [facility] Comment on above: Performed By: #### L 100.0100, L500.2500, L501.5200 ####[facility] [address] [place], [address] Basic Metabolic Profile (BMP )on 10-12-2023 BUN/CRE 18.6 RATIO Normal 10-20 [facility] Comment on above: Performed By: #### L 100.0100, L500.2500 ####[facility] [address] [place], [address] CA,Total 7.8 mg/dL Low 8.5-10.1 [facility] Comment on above: Performed By: #### L 100.0100, L500.2500 ####[facility] [address] [place], [address] Chloride [Moles/Vol] 109 mmol/L High 98-107 [facility] Comment on above: Performed By: #### L 100.0100, L500.2500 ####[facility] [address] [place], [address] CO2 [Moles/Vol] 28.0 mmol/L Normal 21.0-32.0 [facility] Comment on above: Performed By: #### L 100.0100, L500.2500 ####[facility] [address] [place], [address] Creatinine [Mass/Vol] 0.59 mg/dL Low 0.70-1.30 [facility] Comment on above: Result Comment: The validity of the calculated GFR GFRAA in patients over70 years has not been determined. Clinical correlation isessential. Performed By: #### L 100.0100, L500.2500 ####[facility] [address] [place], [address] ECRCL 77.13 ml/min Normal [facility] Comment on above: Performed By: #### L 100.0100, L500.2500 ####[facility] [address] [place], [address] EST GFR - AA 169 mL/min Normal >60 [facility] Comment on above: Result Comment: Afri can Lebanese GFR Calc Performed By: #### L 100.0100, L500.2500 ####[facility] [address] [place], [address] GAP 3 Low 5-15 [facility] Comment on above: Performed By: #### L 100.0100, L500.2500 ####[facility] [address] [place], [address] GFR/1.73 sq M.predicted among non-blacks MDRD (S/P/Bld) [Vol rate/Area] 140 mL/min/{1.73_m2} Normal >60 [facility] Comment on above: Result Comment: Non- GFR Calc Performed By: #### L 100.0100, L500.2500 ####[facility] [address] [place], [address] Glucose [Mass/Vol] 99 mg/dL Normal 74-106 [facility] Comment on above: Performed By: #### L 100.0100, L500.2500 ####[facility] [address] [place], [address] Potassium [Moles/Vol] 3.3 mmol/L Low 3.5-5.1 [facility] Comment on above: Performed By: #### L 100.0100, L500.2500 ####[facility] [address] [place], [address] Sodium [Moles/Vol] 140 mmol/L Normal 136-145 [facility] Comment on above: Performed By: #### L 100.0100, L500.2500 ####[facility] [address] [place], [address] Urea nitrogen [Mass/Vol] 11 mg/dL Normal 7-18 [facility] Comment on above: Performed By: #### L 100.0100, L500.2500 ####[facility] [address] [place], [address] CBC W/Diff, Automatedon 08-03 03-2023 Absolute Lymph 0.47 X10 3/uL Low 0.83-4.51 [facility] Comment on above: Performed By: #### L 100.0100, L500.2500 ####[facility] [address] [place], [address] Absolute Neut 8.9 X10 3/uL High 2.0-7.7 [facility] Comment on above: Performed By: #### L 100.0100, L500.2500 ####[facility] [address] [place], [address] Basophils/100 WBC (Bld) 0.1 % Normal 0-1 [facility] Comment on above: Performed By: #### L 100.0100, L500.2500 ####[facility] [address] [place], [address] Eosinophils/100 WBC (Bld) 1.0 % Normal 0-5 [facility] Comment on above: Performed By: #### L 100.0100, L500.2500 ####[facility] [address] [place], [address] Erythrocyte distribution width (RBC) [Ratio] 16.9 % High 11.6-14.6 [facility] Comment on above: Performed By: #### L 100.0100, L500.2500 ####[facility] [address] [place], [address] Hematocrit (Bld) [Volume fraction] 28.8 % Low 40-54 [facility] Comment on above: Performed By: #### L 100.0100, L500.2500 ####[facility] [address] [place], [address] Hemoglobin (Bld) [Mass/Vol] 8.7 g/dL Low 13.0-16.5 [facility] Comment on above: Performed By: #### L 100.0100, L500.2500 ####[facility] [address] [place], [address] IG% 1.200 High 0.0-0.9 [facility] Comment on above: Result Comment: IG% - Immature Granulocytes (promyelocytes, myelocytes andmetamyelocytes) > 1% indicates that a LEFT SHIFT is Present. Performed By: #### L 100.0100, L500.2500 ####[facility] [address] [place], [address] Lymphocytes/100 WBC (Bld) 4.6 % Low 19-41 [facility] Comment on above: Performed By: #### L 100.0100, L500.2500 ####[facility] [address] [place], [address] MCH (RBC) [Entitic mass] 28.0 pg Normal 27.0-32.0 [facility] Comment on above: Performed By: #### L 100.0100, L500.2500 ####[facility] [address] [place], [address] MCHC (RBC) [Mass/Vol] 30.2 g/dL Low 32-36 [facility] Comment on above: Performed By: #### L 100.0100, L500.2500 ####[facility] [address] [place], [address] MCV (RBC) [Entitic vol] 92.6 fL Normal 80-94 [facility] Comment on above: Performed By: #### L 100.0100, L500.2500 ####[facility] [address] [place], [address] Monocytes/100 WBC (Bld) 6.4 % Normal 0-10 [facility] Comment on above: Performed By: #### L 100.0100, L500.2500 ####[facility] [address] [place], [address] Neutrophils/100 WBC (Bld) 86.7 % High 47-70 [facility] Comment on above: Performed By: #### L 100.0100, L500.2500 ####[facility] [address] [place], [address] Nucleated RBC (Bld) [#/Vol] 0.4 10*3/uL Normal 0-5 [facility] Comment on above: Performed By: #### L 100.0100, L500.2500 ####[facility] [address] [place], [address] Platelet mean volume (Bld) [Entitic vol] 9.7 fL Normal 6.2-12.0 [facility] Comment on above: Performed By: #### L 100.0100, L500.2500 ####[facility] [address] [place], [address] Platelets (Bld) [#/Vol] 229 10*3/uL Normal 150-450 [facility] Comment on above: Performed By: #### L 100.0100, L500.2500 ####[facility] [address] [place], [address] RBC (Bld) [#/Vol] 3.11 10*6/uL Low 4.6-6.2 [facility] Comment on above: Performed By: #### L 100.0100, L500.2500 ####[facility] [address] [place], [address] RDW SD 54.6 fl High 35.1-43.9 [facility] Comment on above: Performed By: #### L 100.0100, L500.2500 ####[facility] [address] [place], [address] WBC (Bld) [#/Vol] 10.3 10*3/uL Normal 4.4-11.0 [facility] Comment on above: Performed By: #### L 100.0100, L500.2500 ####[facility] [address] [place], [address] Procedure Reporton Procedure Report Normal [facility] Basic Metabolic Profile (BMP )on 10-11-2023 BUN/CRE 21.5 RATIO High 10-20 [facility] Comment on above: Performed By: #### L 100.0100, L500.2500 ####[facility] [address] [place], [address] CA,Total 7.8 mg/dL Low 8.5-10.1 [facility] Comment on above: Performed By: #### L 100.0100, L500.2500 ####[facility] [address] [place], [address] Chloride [Moles/Vol] 110 mmol/L High 98-107 [facility] Comment on above: Performed By: #### L 100.0100, L500.2500 ####[facility] [address] [place], [address] CO2 [Moles/Vol] 29.0 mmol/L Normal 21.0-32.0 [facility] Comment on above: Performed By: #### L 100.0100, L500.2500 ####[facility] [address] [place], [address] Creatinine [Mass/Vol] 0.60 mg/dL Low 0.70-1.30 [facility] Comment on above: Result Comment: The validity of the calculated GFR GFRAA in patients over70 years has not been determined. Clinical correlation isessential. Performed By: #### L 100.0100, L500.2500 ####[facility] [address] [place], [address] ECRCL 77.13 ml/min Normal [facility] Comment on above: Performed By: #### L 100.0100, L500.2500 ####[facility] [address] [place], [address] EST GFR - AA 165 mL/min Normal >60 [facility] Comment on above: Result Comment: Afri can Lebanese GFR Calc Performed By: #### L 100.0100, L500.2500 ####[facility] [address] [place], [address] GAP 2 Low 5-15 [facility] Comment on above: Performed By: #### L 100.0100, L500.2500 ####[facility] [address] [place], [address] GFR/1.73 sq M.predicted among non-blacks MDRD (S/P/Bld) [Vol rate/Area] 136 mL/min/{1.73_m2} Normal >60 [facility] Comment on above: Result Comment: Non- GFR Calc Performed By: #### L 100.0100, L500.2500 ####[facility] [address] [place], [address] Glucose [Mass/Vol] 112 mg/dL High 74-106 [facility] Comment on above: Result Comment: Fast ing Glucose result from 100 to 125 mg/dLsuggests IMPAIRED HOMEOSTASIS per A.D.A. criteria. Performed By: #### L 100.0100, L500.2500 ####[facility] [address] [place], [address] Potassium [Moles/Vol] 3.6 mmol/L Normal 3.5-5.1 [facility] Comment on above: Performed By: #### L 100.0100, L500.2500 ####[facility] [address] [place], [address] Sodium [Moles/Vol] 141 mmol/L Normal 136-145 [facility] Comment on above: Performed By: #### L 100.0100, L500.2500 ####[facility] [address] [place], [address] Urea nitrogen [Mass/Vol] 13 mg/dL Normal 7-18 [facility] Comment on above: Performed By: #### L 100.0100, L500.2500 ####[facility] [address] [place], [address] CBC W/Diff, Automatedon - Absolute Lymph 0.38 X10 3/uL Low 0.83-4.51 [facility] Comment on above: Performed By: #### L 100.0100, L500.2500 ####[facility] [address] [place], [address] Absolute Neut 10.4 X10 3/uL High 2.0-7.7 [facility] Comment on above: Performed By: #### L 100.0100, L500.2500 ####[facility] [address] [place], [address] Basophils/100 WBC (Bld) 0.2 % Normal 0-1 [facility] Comment on above: Performed By: #### L 100.0100, L500.2500 ####[facility] [address] [place], [address] Eosinophils/100 WBC (Bld) 0.8 % Normal 0-5 [facility] Comment on above: Performed By: #### L 100.0100, L500.2500 ####[facility] [address] [place], [address] Erythrocyte distribution width (RBC) [Ratio] 17.0 % High 11.6-14.6 [facility] Comment on above: Performed By: #### L 100.0100, L500.2500 ####[facility] [address] [place], [address] Hematocrit (Bld) [Volume fraction] 27.3 % Low 40-54 [facility] Comment on above: Performed By: #### L 100.0100, L500.2500 ####[facility] [address] [place], [address] Hemoglobin (Bld) [Mass/Vol] 8.4 g/dL Low 13.0-16.5 [facility] Comment on above: Performed By: #### L 100.0100, L500.2500 ####[facility] [address] [place], [address] IG% 1.000 High 0.0-0.9 [facility] Comment on above: Result Comment: IG% - Immature Granulocytes (promyelocytes, myelocytes andmetamyelocytes) > 1% indicates that a LEFT SHIFT is Present. Performed By: #### L 100.0100, L500.2500 ####[facility] [address] [place], [address] Lymphocytes/100 WBC (Bld) 3.3 % Low 19-41 [facility] Comment on above: Performed By: #### L 100.0100, L500.2500 ####[facility] [address] [place], [address] MCH (RBC) [Entitic mass] 27.7 pg Normal 27.0-32.0 [facility] Comment on above: Performed By: #### L 100.0100, L500.2500 ####[facility] [address] [place], [address] MCHC (RBC) [Mass/Vol] 30.8 g/dL Low 32-36 [facility] Comment on above: Performed By: #### L 100.0100, L500.2500 ####[facility] [address] [place], [address] MCV (RBC) [Entitic vol] 90.1 fL Normal 80-94 [facility] Comment on above: Performed By: #### L 100.0100, L500.2500 ####[facility] [address] [place], [address] Monocytes/100 WBC (Bld) 6.0 % Normal 0-10 [facility] Comment on above: Performed By: #### L 100.0100, L500.2500 ####[facility] [address] [place], [address] Neutrophils/100 WBC (Bld) 88.7 % High 47-70 [facility] Comment on above: Performed By: #### L 100.0100, L500.2500 ####[facility] [address] [place], [address] Nucleated RBC (Bld) [#/Vol] 0.4 10*3/uL Normal 0-5 [facility] Comment on above: Performed By: #### L 100.0100, L500.2500 ####[facility] [address] [place], [address] Platelet mean volume (Bld) [Entitic vol] 9.7 fL Normal 6.2-12.0 [facility] Comment on above: Performed By: #### L 100.0100, L500.2500 ####[facility] [address] [place], [address] Platelets (Bld) [#/Vol] 214 10*3/uL Normal 150-450 [facility] Comment on above: Performed By: #### L 100.0100, L500.2500 ####[facility] [address] [place], [address] RBC (Bld) [#/Vol] 3.03 10*6/uL Low 4.6-6.2 [facility] Comment on above: Performed By: #### L 100.0100, L500.2500 ####[facility] [address] [place], [address] RDW SD 53.4 fl High 35.1-43.9 [facility] Comment on above: Performed By: #### L 100.0100, L500.2500 ####[facility] [address] [place], [address] WBC (Bld) [#/Vol] 11.7 10*3/uL High 4.4-11.0 [facility] Comment on above: Performed By: #### L 100.0100, L500.2500 ####[facility] [address] [place], [address] Culture, Blood (WB)on 2023 CUB Blood cultures x2 fr om two different sites No growth in [address] [facility] Comment on above: Performed By: #### M 200.1000 ####[facility] [address] [place], [address] Basic Metabolic Profile (BMP )on 10-10-2023 BUN/CRE 24.3 RATIO High 10-20 [facility] Comment on above: Performed By: #### L 100.0100, L500.2500 ####[facility] [address] [place], [address] CA,Total 7.6 mg/dL Low 8.5-10.1 [facility] Comment on above: Performed By: #### L 100.0100, L500.2500 ####[facility] [address] [place], [address] Chloride [Moles/Vol] 113 mmol/L High 98-107 [facility] Comment on above: Performed By: #### L 100.0100, L500.2500 ####[facility] [address] [place], [address] CO2 [Moles/Vol] 27.0 mmol/L Normal 21.0-32.0 [facility] Comment on above: Performed By: #### L 100.0100, L500.2500 ####[facility] [address] [place], [address] Creatinine [Mass/Vol] 0.70 mg/dL Normal 0.70-1.30 [facility] Comment on above: Result Comment: The validity of the calculated GFR GFRAA in patients over70 years has not been determined. Clinical correlation isessential. Performed By: #### L 100.0100, L500.2500 ####[facility] [address] [place], [address] ECRCL 77.13 ml/min Normal [facility] Comment on above: Performed By: #### L 100.0100, L500.2500 ####[facility] [address] [place], [address] EST GFR - AA 139 mL/min Normal >60 [facility] Comment on above: Result Comment: Afri can Lebanese GFR Calc Performed By: #### L 100.0100, L500.2500 ####[facility] [address] [place], [address] GAP 4 Low 5-15 [facility] Comment on above: Performed By: #### L 100.0100, L500.2500 ####[facility] [address] [place], [address] GFR/1.73 sq M.predicted among non-blacks MDRD (S/P/Bld) [Vol rate/Area] 115 mL/min/{1.73_m2} Normal >60 [facility] Comment on above: Result Comment: Non- GFR Calc Performed By: #### L 100.0100, L500.2500 ####[facility] [address] [place], [address] Glucose [Mass/Vol] 114 mg/dL High 74-106 [facility] Comment on above: Result Comment: Fast ing Glucose result from 100 to 125 mg/dLsuggests IMPAIRED HOMEOSTASIS per A.D.A. criteria. Performed By: #### L 100.0100, L500.2500 ####[facility] [address] [place], [address] Potassium [Moles/Vol] 3.5 mmol/L Normal 3.5-5.1 [facility] Comment on above: Performed By: #### L 100.0100, L500.2500 ####[facility] [address] [place], [address] Sodium [Moles/Vol] 144 mmol/L Normal 136-145 [facility] Comment on above: Performed By: #### L 100.0100, L500.2500 ####[facility] [address] [place], [address] Urea nitrogen [Mass/Vol] 17 mg/dL Normal 7-18 [facility] Comment on above: Performed By: #### L 100.0100, L500.2500 ####[facility] [address] [place], [address] CBC W/Diff, Automatedon 08- 0-4 Absolute Lymph 0.34 X10 3/uL Low 0.83-4.51 [facility] Comment on above: Performed By: #### L 100.0100, L500.2500 ####[facility] [address] [place], [address] Absolute Neut 11.5 X10 3/uL High 2.0-7.7 [facility] Comment on above: Performed By: #### L 100.0100, L500.2500 ####[facility] [address] [place], [address] Basophils/100 WBC (Bld) 0.1 % Normal 0-1 [facility] Comment on above: Performed By: #### L 100.0100, L500.2500 ####[facility] [address] [place], [address] Eosinophils/100 WBC (Bld) 0.6 % Normal 0-5 [facility] Comment on above: Performed By: #### L 100.0100, L500.2500 ####[facility] [address] [place], [address] Erythrocyte distribution width (RBC) [Ratio] 16.5 % High 11.6-14.6 [facility] Comment on above: Performed By: #### L 100.0100, L500.2500 ####[facility] [address] [place], [address] Hematocrit (Bld) [Volume fraction] 28.4 % Low 40-54 [facility] Comment on above: Performed By: #### L 100.0100, L500.2500 ####[facility] [address] [place], [address] Hemoglobin (Bld) [Mass/Vol] 9.1 g/dL Low 13.0-16.5 [facility] Comment on above: Performed By: #### L 100.0100, L500.2500 ####[facility] [address] [place], [address] IG% 0.600 Normal 0.0-0.9 [facility] Comment on above: Result Comment: IG% - Immature Granulocytes (promyelocytes, myelocytes andmetamyelocytes) > 1% indicates that a LEFT SHIFT is Present. Performed By: #### L 100.0100, L500.2500 ####[facility] [address] [place], [address] Lymphocytes/100 WBC (Bld) 2.7 % Low 19-41 [facility] Comment on above: Performed By: #### L 100.0100, L500.2500 ####[facility] [address] [place], [address] MCH (RBC) [Entitic mass] 28.4 pg Normal 27.0-32.0 [facility] Comment on above: Performed By: #### L 100.0100, L500.2500 ####[facility] [address] [place], [address] MCHC (RBC) [Mass/Vol] 32.0 g/dL Normal 32-36 [facility] Comment on above: Performed By: #### L 100.0100, L500.2500 ####[facility] [address] [place], [address] MCV (RBC) [Entitic vol] 88.8 fL Normal 80-94 [facility] Comment on above: Performed By: #### L 100.0100, L500.2500 ####[facility] [address] [place], [address] Monocytes/100 WBC (Bld) 5.0 % Normal 0-10 [facility] Comment on above: Performed By: #### L 100.0100, L500.2500 ####[facility] [address] [place], [address] Neutrophils/100 WBC (Bld) 91.0 % High 47-70 [facility] Comment on above: Performed By: #### L 100.0100, L500.2500 ####[facility] [address] [place], [address] Nucleated RBC (Bld) [#/Vol] 0.6 10*3/uL Normal 0-5 [facility] Comment on above: Performed By: #### L 100.0100, L500.2500 ####[facility] [address] [place], [address] Platelet mean volume (Bld) [Entitic vol] 9.4 fL Normal 6.2-12.0 [facility] Comment on above: Performed By: #### L 100.0100, L500.2500 ####[facility] [address] [place], [address] Platelets (Bld) [#/Vol] 181 10*3/uL Normal 150-450 [facility] Comment on above: Performed By: #### L 100.0100, L500.2500 ####[facility] [address] [place], [address] RBC (Bld) [#/Vol] 3.20 10*6/uL Low 4.6-6.2 [facility] Comment on above: Performed By: #### L 100.0100, L500.2500 ####[facility] [address] [place], [address] RDW SD 51.6 fl High 35.1-43.9 [facility] Comment on above: Performed By: #### L 100.0100, L500.2500 ####[facility] [address] [place], [address] WBC (Bld) [#/Vol] 12.6 10*3/uL High 4.4-11.0 [facility] Comment on above: Performed By: #### L 100.0100, L500.2500 ####[facility] [address] [place], [address] MR/PN.GIon 10-10-2023 MR/PN.GI Normal [facility] Vancomycin, Trough Levelon 0 10-10-2023 VANCO, TROUGH 13.8 ug/mL Normal 5.0-15.0 [facility] Comment on above: Order Comment: Comme nts: DRAW 30 MIN PRIOR TO [id number] Result Comment: VANC OMYCIN STANDARED DRUG THERAPY TROUGH LEVEL: 5.0 - 15.0 mg/LVANCOMYCIN HIGH INTENSITY THERAPY TROUGH LEVEL: 15.0 - 20.0 mg/LHigh Intensity therapy recommended for serious lifethreatening infections include:- Swdsiuezlg-Idcpadernmtp-Bijstdzzx (Ventilator/Healtcare Associated)-SepsisPLEASE CONTACT PHARMACY SERVICES (#0013) FOR INTERPRETATIONOF RESULTS. Performed By: #### L 501.8820 ####[facility] [address] [place], [address] BRCon 10-09-[address] [facility] Comment on above: Result Comment: [id number] ON RC TRANSFUSED 10/09/23 [id number] ON RC TRANSFUSED 10/09/23 1331 Performed By: #### B , BTS ####[facility] [address] [place], [address] Basic Metabolic Profile (BMP )on 10-09-2023 BUN/CRE 32.7 RATIO High 10-20 [facility] Comment on above: Performed By: #### L 100.0100, L500.2500 ####[facility] [address] [place], [address] CA,Total 7.4 mg/dL Low 8.5-10.1 [facility] Comment on above: Performed By: #### L 100.0100, L500.2500 ####[facility] [address] [place], [address] Chloride [Moles/Vol] 112 mmol/L High 98-107 [facility] Comment on above: Performed By: #### L 100.0100, L500.2500 ####[facility] [address] [place], [address] CO2 [Moles/Vol] 29.0 mmol/L Normal 21.0-32.0 [facility] Comment on above: Performed By: #### L 100.0100, L500.2500 ####[facility] [address] [place], [address] Creatinine [Mass/Vol] 0.74 mg/dL Normal 0.70-1.30 [facility] Comment on above: Result Comment: The validity of the calculated GFR GFRAA in patients over70 years has not been determined. Clinical correlation isessential. Performed By: #### L 100.0100, L500.2500 ####[facility] [address] [place], [address] ECRCL 77.13 ml/min Normal [facility] Comment on above: Performed By: #### L 100.0100, L500.2500 ####[facility] [address] [place], [address] EST GFR - AA 132 mL/min Normal >60 [facility] Comment on above: Result Comment: Afri can Lebanese GFR Calc Performed By: #### L 100.0100, L500.2500 ####[facility] [address] [place], [address] GAP 2 Low 5-15 [facility] Comment on above: Performed By: #### L 100.0100, L500.2500 ####[facility] [address] [place], [address] GFR/1.73 sq M.predicted among non-blacks MDRD (S/P/Bld) [Vol rate/Area] 109 mL/min/{1.73_m2} Normal >60 [facility] Comment on above: Result Comment: Non- GFR Calc Performed By: #### L 100.0100, L500.2500 ####[facility] [address] [place], [address] Glucose [Mass/Vol] 129 mg/dL High 74-106 [facility] Comment on above: Result Comment: Fast ing Glucose result greater than or equal to 126 mg/dLsuggests DIABETES MELLITUS per A.D.A. criteria. Performed By: #### L 100.0100, L500.2500 ####[facility] [address] [place], [address] Potassium [Moles/Vol] 3.3 mmol/L Low 3.5-5.1 [facility] Comment on above: Performed By: #### L 100.0100, L500.2500 ####[facility] [address] [place], [address] Sodium [Moles/Vol] 143 mmol/L Normal 136-145 [facility] Comment on above: Performed By: #### L 100.0100, L500.2500 ####[facility] [address] [place], [address] Urea nitrogen [Mass/Vol] 24 mg/dL High 7-18 [facility] Comment on above: Performed By: #### L 100.0100, L500.2500 ####[facility] [address] [place], [address] CBC W/Diff, Automatedon 08-0 9-2024 Absolute Lymph 0.37 X10 3/uL Low 0.83-4.51 [facility] Comment on above: Performed By: #### L 100.0100, L500.2500 ####[facility] [address] [place], [address] Absolute Neut 11.2 X10 3/uL High 2.0-7.7 [facility] Comment on above: Performed By: #### L 100.0100, L500.2500 ####[facility] [address] [place], [address] Basophils/100 WBC (Bld) 0.0 % Normal 0-1 [facility] Comment on above: Performed By: #### L 100.0100, L500.2500 ####[facility] [address] [place], [address] Eosinophils/100 WBC (Bld) 0.1 % Normal 0-5 [facility] Comment on above: Performed By: #### L 100.0100, L500.2500 ####[facility] [address] [place], [address] Erythrocyte distribution width (RBC) [Ratio] 16.8 % High 11.6-14.6 [facility] Comment on above: Performed By: #### L 100.0100, L500.2500 ####[facility] [address] [place], [address] Hematocrit (Bld) [Volume fraction] 21.4 % Low 40-54 [facility] Comment on above: Performed By: #### L 100.0100, L500.2500 ####[facility] [address] [place], [address] Hemoglobin (Bld) [Mass/Vol] 6.6 g/dL Low 13.0-16.5 [facility] Comment on above: Performed By: #### L 100.0100, L500.2500 ####[facility] [address] [place], [address] IG% 1.100 High 0.0-0.9 [facility] Comment on above: Result Comment: IG% - Immature Granulocytes (promyelocytes, myelocytes andmetamyelocytes) > 1% indicates that a LEFT SHIFT is Present. Performed By: #### L 100.0100, L500.2500 ####[facility] [address] [place], [address] Lymphocytes/100 WBC (Bld) 3.0 % Low 19-41 [facility] Comment on above: Performed By: #### L 100.0100, L500.2500 ####[facility] [address] [place], [address] MCH (RBC) [Entitic mass] 27.5 pg Normal 27.0-32.0 [facility] Comment on above: Performed By: #### L 100.0100, L500.2500 ####[facility] [address] [place], [address] MCHC (RBC) [Mass/Vol] 30.8 g/dL Low 32-36 [facility] Comment on above: Performed By: #### L 100.0100, L500.2500 ####[facility] [address] [place], [address] MCV (RBC) [Entitic vol] 89.2 fL Normal 80-94 [facility] Comment on above: Performed By: #### L 100.0100, L500.2500 ####[facility] [address] [place], [address] Monocytes/100 WBC (Bld) 5.0 % Normal 0-10 [facility] Comment on above: Performed By: #### L 100.0100, L500.2500 ####[facility] [address] [place], [address] Neutrophils/100 WBC (Bld) 90.8 % High 47-70 [facility] Comment on above: Performed By: #### L 100.0100, L500.2500 ####[facility] [address] [place], [address] Nucleated RBC (Bld) [#/Vol] 0.5 10*3/uL Normal 0-5 [facility] Comment on above: Performed By: #### L 100.0100, L500.2500 ####[facility] [address] [place], [address] Platelet mean volume (Bld) [Entitic vol] 9.7 fL Normal 6.2-12.0 [facility] Comment on above: Performed By: #### L 100.0100, L500.2500 ####[facility] [address] [place], [address] Platelets (Bld) [#/Vol] 182 10*3/uL Normal 150-450 [facility] Comment on above: Performed By: #### L 100.0100, L500.2500 ####[facility] [address] [place], [address] RBC (Bld) [#/Vol] 2.40 10*6/uL Low 4.6-6.2 [facility] Comment on above: Performed By: #### L 100.0100, L500.2500 ####[facility] [address] [place], [address] RDW SD 51.9 fl High 35.1-43.9 [facility] Comment on above: Performed By: #### L 100.0100, L500.2500 ####[facility] [address] [place], [address] WBC (Bld) [#/Vol] 12.3 10*3/uL High 4.4-11.0 [facility] Comment on above: Performed By: #### L 100.0100, L500.2500 ####[facility] [address] [place], [address] GI Bleed Scanon 10-09-[address] [facility] HH, Hemoglobin AND Hematocri ton 10-09-2023 Hematocrit (Bld) [Volume fraction] 30.3 % Low 40-54 [facility] Comment on above: Performed By: #### L 100.0600 ####[facility] [address] [place], [address] Hemoglobin (Bld) [Mass/Vol] 9.5 g/dL Low 13.0-16.5 [facility] Comment on above: Performed By: #### L 100.0600 ####[facility] [address] [place], [address] MR/PN.GIon 10-09-2023 MR/PN.GI Normal [facility] Type AND Screenon 10-09-2023 Ab SCREEN GEL Negative Normal [facility] Comment on above: Order Comment: CMV N EG? NNumber of units to transfuse: 2Is this product for anemia associated withhemoglobinopathy? NIs pt's Hgb is 10mmHg)? NIs this for PREOP anemia correction prior to anesthesia? NReason for Ordering Blood: ChronicIs there symptomatic anemia? Nargis the blood/blood products to be transfused? YIs the patient having/had surgery? NNWhen NicoleA Performed By: #### B RC, BTS ####[facility] [address] [place], [address] Basic Metabolic Profile (BMP )on 10-08-2023 BUN/CRE 38.6 RATIO High 10-20 [facility] Comment on above: Performed By: #### L 500.2500, L100.0100 ####[facility] [address] [place], [address] CA,Total 7.3 mg/dL Low 8.5-10.1 [facility] Comment on above: Performed By: #### L 500.2500, L100.0100 ####[facility] [address] [place], [address] Chloride [Moles/Vol] 110 mmol/L High 98-107 [facility] Comment on above: Performed By: #### L 500.2500, L100.0100 ####[facility] [address] [place], [address] CO2 [Moles/Vol] 25.0 mmol/L Normal 21.0-32.0 [facility] Comment on above: Performed By: #### L 500.2500, L100.0100 ####[facility] [address] [place], [address] Creatinine [Mass/Vol] 1.14 mg/dL Normal 0.70-1.30 [facility] Comment on above: Result Comment: The validity of the calculated GFR GFRAA in patients over70 years has not been determined. Clinical correlation isessential. Performed By: #### L 500.2500, L100.0100 ####[facility] [address] [place], [address] ECRCL 54.13 ml/min Normal [facility] Comment on above: Performed By: #### L 500.2500, L100.0100 ####[facility] [address] [place], [address] EST GFR - AA 79 mL/min Normal >60 [facility] Comment on above: Result Comment: Afri can Lebanese GFR Calc Performed By: #### L 500.2500, L100.0100 ####[facility] [address] [place], [address] GAP 7 Normal 5-15 [facility] Comment on above: Performed By: #### L 500.2500, L100.0100 ####[facility] [address] [place], [address] GFR/1.73 sq M.predicted among non-blacks MDRD (S/P/Bld) [Vol rate/Area] 66 mL/min/{1.73_m2} Normal >60 [facility] Comment on above: Result Comment: Non- GFR Calc Performed By: #### L 500.2500, L100.0100 ####[facility] [address] [place], [address] Glucose [Mass/Vol] 101 mg/dL Normal 74-106 [facility] Comment on above: Result Comment: Fast ing Glucose result from 100 to 125 mg/dLsuggests IMPAIRED HOMEOSTASIS per A.D.A. criteria. Performed By: #### L 500.2500, L100.0100 ####[facility] [address] [place], [address] Potassium [Moles/Vol] 3.5 mmol/L Normal 3.5-5.1 [facility] Comment on above: Performed By: #### L 500.2500, L100.0100 ####[facility] [address] [place], [address] Sodium [Moles/Vol] 142 mmol/L Normal 136-145 [facility] Comment on above: Performed By: #### L 500.2500, L100.0100 ####[facility] [address] [place], [address] Urea nitrogen [Mass/Vol] 44 mg/dL High 7-18 [facility] Comment on above: Performed By: #### L 500.2500, L100.0100 ####[facility] [address] [place], [address] CBC W/Diff, Automatedon 08-0 8-2024 Absolute Lymph 0.41 X10 3/uL Low 0.83-4.51 [facility] Comment on above: Performed By: #### L 500.2500, L100.0100 ####[facility] [address] [place], [address] Absolute Neut 14.8 X10 3/uL High 2.0-7.7 [facility] Comment on above: Performed By: #### L 500.2500, L100.0100 ####[facility] [address] [place], [address] Basophils/100 WBC (Bld) 0.0 % Normal 0-1 [facility] Comment on above: Performed By: #### L 500.2500, L100.0100 ####[facility] [address] [place], [address] Eosinophils/100 WBC (Bld) 0.0 % Normal 0-5 [facility] Comment on above: Performed By: #### L 500.2500, L100.0100 ####[facility] [address] [place], [address] Erythrocyte distribution width (RBC) [Ratio] 17.1 % High 11.6-14.6 [facility] Comment on above: Performed By: #### L 500.2500, L100.0100 ####[facility] [address] [place], [address] Hematocrit (Bld) [Volume fraction] 26.0 % Low 40-54 [facility] Comment on above: Performed By: #### L 500.2500, L100.0100 ####[facility] [address] [place], [address] Hemoglobin (Bld) [Mass/Vol] 8.3 g/dL Low 13.0-16.5 [facility] Comment on above: Performed By: #### L 500.2500, L100.0100 ####[facility] [address] [place], [address] IG% 1.100 High 0.0-0.9 [facility] Comment on above: Result Comment: IG% - Immature Granulocytes (promyelocytes, myelocytes andmetamyelocytes) > 1% indicates that a LEFT SHIFT is Present. Performed By: #### L 500.2500, L100.0100 ####[facility] [address] [place], [address] Lymphocytes/100 WBC (Bld) 2.5 % Low 19-41 [facility] Comment on above: Performed By: #### L 500.2500, L100.0100 ####[facility] [address] [place], [address] MCH (RBC) [Entitic mass] 27.8 pg Normal 27.0-32.0 [facility] Comment on above: Performed By: #### L 500.2500, L100.0100 ####[facility] [address] [place], [address] MCHC (RBC) [Mass/Vol] 31.9 g/dL Low 32-36 [facility] Comment on above: Performed By: #### L 500.2500, L100.0100 ####[facility] [address] [place], [address] MCV (RBC) [Entitic vol] 87.0 fL Normal 80-94 [facility] Comment on above: Performed By: #### L 500.2500, L100.0100 ####[facility] [address] [place], [address] Monocytes/100 WBC (Bld) 5.9 % Normal 0-10 [facility] Comment on above: Performed By: #### L 500.2500, L100.0100 ####[facility] [address] [place], [address] Neutrophils/100 WBC (Bld) 90.5 % High 47-70 [facility] Comment on above: Performed By: #### L 500.2500, L100.0100 ####[facility] [address] [place], [address] Nucleated RBC (Bld) [#/Vol] 0.9 10*3/uL Normal 0-5 [facility] Comment on above: Performed By: #### L 500.2500, L100.0100 ####[facility] [address] [place], [address] Platelet mean volume (Bld) [Entitic vol] 9.6 fL Normal 6.2-12.0 [facility] Comment on above: Performed By: #### L 500.2500, L100.0100 ####[facility] [id number] [place], [address] Platelets (Bld) [#/Vol] 208 10*3/uL Normal 150-450 [facility] Comment on above: Performed By: #### L 500.2500, L100.0100 ####[facility] [id number] [place], [address] RBC (Bld) [#/Vol] 2.99 10*6/uL Low 4.6-6.2 [facility] Comment on above: Performed By: #### L 500.2500, L100.0100 ####[facility] [address] [place], [address] RDW SD 52.0 fl High 35.1-43.9 [facility] Comment on above: Performed By: #### L 500.2500, L100.0100 ####[facility] [address] [place], [address] WBC (Bld) [#/Vol] 16.3 10*3/uL High 4.4-11.0 [facility] Comment on above: Performed By: #### L 500.2500, L100.0100 ####[facility] [address] [place], [address] MR/PN.GIon 10-08-2023 MR/PN.GI Normal [facility] Vancomycin, Trough Levelon 0 10-08-2023 VANCO, TROUGH 15.6 ug/mL High 5.0-15.0 [facility] Comment on above: Order Comment: Comme nts: Trough to be drawn 30 mins prior to scheduled dose Result Comment: VANC OMYCIN STANDARED DRUG THERAPY TROUGH LEVEL: 5.0 - 15.0 mg/LVANCOMYCIN HIGH INTENSITY THERAPY TROUGH LEVEL: 15.0 - 20.0 mg/LHigh Intensity therapy recommended for serious lifethreatening infections include:- Xlbqtgeowu-Enqjqxsxgtzr-Bfrkkjuzo (Ventilator/Healtcare Associated)-SepsisPLEASE CONTACT PHARMACY SERVICES (#6738) FOR INTERPRETATIONOF RESULTS. Performed By: #### L 501.1220 ####[facility] [address] [place], [address] Basic Metabolic Profile (BMP )on 10-07-2023 BUN/CRE 32.9 RATIO High 10-20 [facility] Comment on above: Order Comment: 'TROP ' Serial specimen #1, #2 or #3: 1 Performed By: #### L 500.2500, L501.5200, L501.4020 ####[facility] [address] [place], [address] CA,Total 7.4 mg/dL Low 8.5-10.1 [facility] Comment on above: Order Comment: 'TROP ' Serial specimen #1, #2 or #3: 1 Performed By: #### L 500.2500, L501.5200, L501.4020 ####[facility] [address] [place], [address] Chloride [Moles/Vol] 108 mmol/L High 98-107 [facility] Comment on above: Order Comment: 'TROP ' Serial specimen #1, #2 or #3: 1 Performed By: #### L 500.2500, L501.5200, L501.4020 ####[facility] [address] [place], [address] CO2 [Moles/Vol] 23.0 mmol/L Normal 21.0-32.0 [facility] Comment on above: Order Comment: 'TROP ' Serial specimen #1, #2 or #3: 1 Performed By: #### L 500.2500, L501.5200, L501.4020 ####[facility] [address] [place], [address] Creatinine [Mass/Vol] 1.46 mg/dL High 0.70-1.30 [facility] Comment on above: Order Comment: 'TROP ' Serial specimen #1, #2 or #3: 1 Result Comment: The validity of the calculated GFR GFRAA in patients over70 years has not been determined. Clinical correlation isessential. Performed By: #### L 500.2500, L501.5200, L501.4020 ####[facility] [address] [place], [address] ECRCL 42.26 ml/min Normal [facility] Comment on above: Order Comment: 'TROP ' Serial specimen #1, #2 or #3: 1 Performed By: #### L 500.2500, L501.5200, L501.4020 ####[facility] [address] [place], [address] EST GFR - AA 60 mL/min Normal >60 [facility] Comment on above: Order Comment: 'TROP ' Serial specimen #1, #2 or #3: 1 Result Comment: Afri can Lebanese GFR Calc Performed By: #### L 500.2500, L501.5200, L501.4020 ####[facility] [address] [place], [address] GAP 11 Normal 5-15 [facility] Comment on above: Order Comment: 'TROP ' Serial specimen #1, #2 or #3: 1 Performed By: #### L 500.2500, L501.5200, L501.4020 ####[facility] [address] [place], [address] GFR/1.73 sq M.predicted among non-blacks MDRD (S/P/Bld) [Vol rate/Area] 49 mL/min/{1.73_m2} Low >60 [facility] Comment on above: Order Comment: 'TROP ' Serial specimen #1, #2 or #3: 1 Result Comment: Non- GFR Calc Performed By: #### L 500.2500, L501.5200, L501.4020 ####[facility] [address] [place], [address] Glucose [Mass/Vol] 152 mg/dL High 74-106 [facility] Comment on above: Order Comment: 'TROP ' Serial specimen #1, #2 or #3: 1 Result Comment: Fast ing Glucose result greater than or equal to 126 mg/dLsuggests DIABETES MELLITUS per A.D.A. criteria. Performed By: #### L 500.2500, L501.5200, L501.4020 ####[facility] [address] [place], [address] Potassium [Moles/Vol] 4.1 mmol/L Normal 3.5-5.1 [facility] Comment on above: Order Comment: 'TROP ' Serial specimen #1, #2 or #3: 1 Result Comment: Slig ht Hemolysis, Result may be falsely increased. Performed By: #### L 500.2500, L501.5200, L501.4020 ####[facility] [address] [place], [address] Sodium [Moles/Vol] 142 mmol/L Normal 136-145 [facility] Comment on above: Order Comment: 'TROP ' Serial specimen #1, #2 or #3: 1 Performed By: #### L 500.2500, L501.5200, L501.4020 ####[facility] [address] [place], [address] Urea nitrogen [Mass/Vol] 48 mg/dL High 7-18 [facility] Comment on above: Order Comment: 'TROP ' Serial specimen #1, #2 or #3: 1 Performed By: #### L 500.2500, L501.5200, L501.4020 ####[facility] [address] [place], [address] BUN Normal 7-18 [facility] Comment on above: Result Comment: Canc elled via OM: Order cancelled - Patient discharged Performed By: #### L 100.0100, L500.2500 ####[facility] [address] [place], [address] BUN/CRE Normal 10-20 [facility] Comment on above: Result Comment: Canc elled via OM: Order cancelled - Patient discharged Performed By: #### L 100.0100, L500.2500 ####[facility] [address] [place], [address] CA,Total Normal 8.5-10.1 [facility] Comment on above: Result Comment: Canc elled via OM: Order cancelled - Patient discharged Performed By: #### L 100.0100, L500.2500 ####[facility] [address] [place], [address] CL Normal 98-107 [facility] Comment on above: Result Comment: Canc elled via OM: Order cancelled - Patient discharged Performed By: #### L 100.0100, L500.2500 ####[facility] [address] [place], [address] CO2 Normal 21.0-32.0 [facility] Comment on above: Result Comment: Canc elled via OM: Order cancelled - Patient discharged Performed By: #### L 100.0100, L500.2500 ####[facility] [address] [place], [address] CREAT,SERUM Normal 0.70-1.30 [facility] Comment on above: Result Comment: Canc elled via OM: Order cancelled - Patient discharged Performed By: #### L 100.0100, L500.2500 ####[facility] [address] [place], [address] EST GFR Normal >60 [facility] Comment on above: Result Comment: Canc elled via OM: Order cancelled - Patient discharged Performed By: #### L 100.0100, L500.2500 ####[facility] [address] [place], [address] EST GFR - AA Normal >60 [facility] Comment on above: Result Comment: Canc elled via OM: Order cancelled - Patient discharged Performed By: #### L 100.0100, L500.2500 ####[facility] [address] [place], [address] GAP Normal 5-15 [facility] Comment on above: Result Comment: Canc elled via OM: Order cancelled - Patient discharged Performed By: #### L 100.0100, L500.2500 ####[facility] [address] [place], [address] GLU Normal 74-106 [facility] Comment on above: Result Comment: Canc elled via OM: Order cancelled - Patient discharged Performed By: #### L 100.0100, L500.2500 ####[facility] [address] [place], [address] Potassium Normal 3.5-5.1 [facility] Comment on above: Result Comment: Canc elled via OM: Order cancelled - Patient discharged Performed By: #### L 100.0100, L500.2500 ####[facility] [address] [place], [address] Basic Metabolic Profile (BMP) Normal 136-145 [facility] Comment on above: Result Comment: Canc elled via OM: Order cancelled - Patient discharged Performed By: #### L 100.0100, L500.2500 ####[facility] [address] [place], [address] CBC W/Diff, Automatedon 08-0 PATH REV [address] Normal [facility] Comment on above: Result Comment: Neut rophilic leukocytosis with left shift.Normocytic anemia.Clinical correlation necessary.Timbo Arguelles M.D. 10/07/23 AMENDED REPORT 10/07/23 1338 PATH REV previously reported as: May foll Performed By: #### L 100.0100 ####[facility] [address] [place], [address] PATH REV Reviewed Normal [facility] Comment on above: Result Comment: Neut rophilic leukocytosis.Normocytic anemia.Clinical correlation necessary.Timbo Arguelles M.D. 10/07/23 AMENDED REPORT 10/07/23 1337 PATH REV previously reported as: May foll Performed By: #### L 100.0100 ####[facility] [address] [place], [address] Absolute Neut Normal 2.0-7.7 [facility] Comment on above: Result Comment: Canc elled via OM: Order cancelled - Patient discharged Performed By: #### L 100.0100, L500.2500 ####[facility] [address] [place], [address] HCT Normal 40-54 [facility] Comment on above: Result Comment: Canc elled via OM: Order cancelled - Patient discharged Performed By: #### L 100.0100, L500.2500 ####[facility] [address] [place], [address] HGB Normal 13.0-16.5 [facility] Comment on above: Result Comment: Canc elled via OM: Order cancelled - Patient discharged Performed By: #### L 100.0100, L500.2500 ####[facility] [address] [place], [address] MCH Normal 27.0-32.0 [facility] Comment on above: Result Comment: Canc elled via OM: Order cancelled - Patient discharged Performed By: #### L 100.0100, L500.2500 ####[facility] [address] [place], [address] MCHC Normal 32-36 [facility] Comment on above: Result Comment: Canc elled via OM: Order cancelled - Patient discharged Performed By: #### L 100.0100, L500.2500 ####[facility] [address] [place], [address] MCV Normal 80-94 [facility] Comment on above: Result Comment: Canc elled via OM: Order cancelled - Patient discharged Performed By: #### L 100.0100, L500.2500 ####[facility] [address] [place], [address] NEUT% Normal 47-70 [facility] Comment on above: Result Comment: Canc elled via OM: Order cancelled - Patient discharged Performed By: #### L 100.0100, L500.2500 ####[facility] [address] [place], [address] PLT Normal 150-450 [facility] Comment on above: Result Comment: Canc elled via OM: Order cancelled - Patient discharged Performed By: #### L 100.0100, L500.2500 ####[facility] [address] [place], [address] RBC Normal 4.6-6.2 [facility] Comment on above: Result Comment: Canc elled via OM: Order cancelled - Patient discharged Performed By: #### L 100.0100, L500.2500 ####[facility] [address] [place], [address] RDW CV Normal 11.6-14.6 [facility] Comment on above: Result Comment: Canc elled via OM: Order cancelled - Patient discharged Performed By: #### L 100.0100, L500.2500 ####[facility] [address] [place], [address] RDW SD Normal 35.1-43.9 [facility] Comment on above: Result Comment: Canc elled via OM: Order cancelled - Patient discharged Performed By: #### L 100.0100, L500.2500 ####[facility] [address] [place], [address] WBC Normal 4.4-11.0 [facility] Comment on above: Result Comment: Canc elled via OM: Order cancelled - Patient discharged Performed By: #### L 100.0100, L500.2500 ####[facility] [address] [place], [address] Colonoscopy Reporton 024 Colonoscopy Report Normal [facility] EGD Reporton 10-07-[address] [facility] L501.4020on 10-07-2023 TROPONIN-I HS 78 pg/mL Normal 3.0-78.0 [facility] Comment on above: Order Comment: 'TROP ' Serial specimen #1, #2 or #3: 1 Result Comment: Plea se Note: New Test Units and Gender Specific Reference Ranges. For more information see Policy Stat Procedure Nickerson High Sensitivity Troponin (TNIH) and attachments. Performed By: #### L 500.2500, L501.5200, L501.4020 ####[facility] [address] [place], [address] MR/POSTOP.ANEon 10-07-2023 MR/POSTOP.ANE Normal [facility] MR/JLPMRUCX1ni 10-07-2023 MR/POSTOPAN2 Normal [facility] Magnesiumon 10-07-2023 Magnesium [Mass/Vol] 2.0 mg/dL Normal 1.6-2.6 [facility] Comment on above: Order Comment: 'TROP ' Serial specimen #1, #2 or #3: 1 Result Comment: Slig ht Hemolysis, Result may be falsely increased. Performed By: #### L 500.2500, L501.5200, L501.4020 ####[facility] [address] [place], [address] Phosphoruson 10-07-2023 Phosphate [Mass/Vol] 6.8 mg/dL High 2.5-4.9 [facility] Comment on above: Performed By: #### L 501.2300 ####[facility] [address] [place], [address] Surgery Specimen Level Siva 10-07-2023 Surgery Specimen Level IV Normal [facility] Comment on above: Performed By: #### P SUIV ####[facility] [address] [place], [address] Urine Cultureon 10-07-2023 URC Culture exhibits no growth. Normal [facility] Comment on above: Performed By: #### M 100.2200 ####[facility] [address] [place], [address] Vancomycin, Trough Levelon 0 10-07-2023 VANCO, TROUGH 18.6 ug/mL High 5.0-15.0 [facility] Comment on above: Order Comment: Comme nts: Trough to be drawn 30 mins prior to scheduled [id number] Result Comment: VANC OMYCIN STANDARED DRUG THERAPY TROUGH LEVEL: 5.0 - 15.0 mg/LVANCOMYCIN HIGH INTENSITY THERAPY TROUGH LEVEL: 15.0 - 20.0 mg/LHigh Intensity therapy recommended for serious lifethreatening infections include:- Vfymiagoip-Doaaivhcbfse-Fhtjztozx (Ventilator/Healtcare Associated)-SepsisPLEASE CONTACT PHARMACY SERVICES (#2590) FOR INTERPRETATIONOF RESULTS. Performed By: #### L 501.8820 ####[facility] [address] [place], [address] 12 Lead EKGon 10-06-[address] [facility] BNP,B-Type NATRIURETIC PEPTI Vannessa 10-06-2023 Natriuretic peptide B (Bld) [Mass/Vol] 75.9 pg/mL Normal 0-100 [facility] Comment on above: Performed By: #### L 503.6620 ####[facility] [address] [place], [address] BRCon 10-06-[address] [facility] Comment on above: Result Comment: [id number] ON RC TRANSFUSED 10/07/23 0138 Performed By: #### B RC ####[facility] [address] [place], [address] Result Comment: [id number] ON RC TRANSFUSED 10/06/23 [id number] ON RC TRANSFUSED 10/06/23 1210 Performed By: #### B , BTS ####[facility] [address] [place], [address] Basic Metabolic Profile (BMP )on 10-06-2023 BUN Normal 7-18 [facility] Comment on above: Result Comment: Canc elled via OM: Order cancelled - Patient discharged Performed By: #### L 100.0100, L500.2500 ####[facility] [address] [place], [address] BUN/CRE Normal 10-20 [facility] Comment on above: Result Comment: Canc elled via OM: Order cancelled - Patient discharged Performed By: #### L 100.0100, L500.2500 ####[facility] [address] [place], [address] CA,Total Normal 8.5-10.1 [facility] Comment on above: Result Comment: Canc elled via OM: Order cancelled - Patient discharged Performed By: #### L 100.0100, L500.2500 ####[facility] [address] [place], [address] CL Normal 98-107 [facility] Comment on above: Result Comment: Canc elled via OM: Order cancelled - Patient discharged Performed By: #### L 100.0100, L500.2500 ####[facility] [address] [place], [address] CO2 Normal 21.0-32.0 [facility] Comment on above: Result Comment: Canc elled via OM: Order cancelled - Patient discharged Performed By: #### L 100.0100, L500.2500 ####[facility] [address] [place], [address] CREAT,SERUM Normal 0.70-1.30 [facility] Comment on above: Result Comment: Canc elled via OM: Order cancelled - Patient discharged Performed By: #### L 100.0100, L500.2500 ####[facility] [address] [place], [address] EST GFR Normal >60 [facility] Comment on above: Result Comment: Canc elled via OM: Order cancelled - Patient discharged Performed By: #### L 100.0100, L500.2500 ####[facility] [address] [place], [address] EST GFR - AA Normal >60 [facility] Comment on above: Result Comment: Canc elled via OM: Order cancelled - Patient discharged Performed By: #### L 100.0100, L500.2500 ####[facility] [address] [place], [address] GAP Normal 5-15 [facility] Comment on above: Result Comment: Canc elled via OM: Order cancelled - Patient discharged Performed By: #### L 100.0100, L500.2500 ####[facility] [address] [place], [address] GLU Normal 74-106 [facility] Comment on above: Result Comment: Canc elled via OM: Order cancelled - Patient discharged Performed By: #### L 100.0100, L500.2500 ####[facility] [address] [place], [address] Potassium Normal 3.5-5.1 [facility] Comment on above: Result Comment: Canc elled via OM: Order cancelled - Patient discharged Performed By: #### L 100.0100, L500.2500 ####[facility] [address] [place], [address] Basic Metabolic Profile (BMP) Normal 136-145 [facility] Comment on above: Result Comment: Canc elled via OM: Order cancelled - Patient discharged Performed By: #### L 100.0100, L500.2500 ####[facility] [address] [place], [address] BUN/CRE 29.5 RATIO High 10-20 [facility] Comment on above: Performed By: #### L 100.0100, L500.2500 ####[facility] [address] [place], [address] CA,Total 8.4 mg/dL Low 8.5-10.1 [facility] Comment on above: Performed By: #### L 100.0100, L500.2500 ####[facility] [address] [place], [address] Chloride [Moles/Vol] 106 mmol/L Normal 98-107 [facility] Comment on above: Performed By: #### L 100.0100, L500.2500 ####[facility] [address] [place], [address] CO2 [Moles/Vol] 28.0 mmol/L Normal 21.0-32.0 [facility] Comment on above: Performed By: #### L 100.0100, L500.2500 ####[facility] [address] [place], [address] Creatinine [Mass/Vol] 1.22 mg/dL Normal 0.70-1.30 [facility] Comment on above: Result Comment: The validity of the calculated GFR GFRAA in patients over70 years has not been determined. Clinical correlation isessential. Performed By: #### L 100.0100, L500.2500 ####[facility] [address] [place], [address] ECRCL 50.58 ml/min Normal [facility] Comment on above: Performed By: #### L 100.0100, L500.2500 ####[facility] [address] [place], [address] EST GFR - AA 73 mL/min Normal >60 [facility] Comment on above: Result Comment: Afri can Lebanese GFR Calc Performed By: #### L 100.0100, L500.2500 ####[facility] [address] [place], [address] GAP 4 Low 5-15 [facility] Comment on above: Performed By: #### L 100.0100, L500.2500 ####[facility] [address] [place], [address] GFR/1.73 sq M.predicted among non-blacks MDRD (S/P/Bld) [Vol rate/Area] 61 mL/min/{1.73_m2} Normal >60 [facility] Comment on above: Result Comment: Non- GFR Calc Performed By: #### L 100.0100, L500.2500 ####[facility] [address] [place], [address] Glucose [Mass/Vol] 166 mg/dL High 74-106 [facility] Comment on above: Result Comment: Fast ing Glucose result greater than or equal to 126 mg/dLsuggests DIABETES MELLITUS per A.D.A. criteria. Performed By: #### L 100.0100, L500.2500 ####[facility] [address] [place], [address] Potassium [Moles/Vol] 4.5 mmol/L Normal 3.5-5.1 [facility] Comment on above: Performed By: #### L 100.0100, L500.2500 ####[facility] [address] [place], [address] Sodium [Moles/Vol] 138 mmol/L Normal 136-145 [facility] Comment on above: Performed By: #### L 100.0100, L500.2500 ####[facility] [address] [place], [address] Urea nitrogen [Mass/Vol] 36 mg/dL High 7-18 [facility] Comment on above: Performed By: #### L 100.0100, L500.2500 ####[facility] [address] [place], [address] CBC W/Diff, Automatedon 08-0 Absolute Lymph 0.40 X10 3/uL Low 0.83-4.51 [facility] Comment on above: Performed By: #### L 100.0100 ####[facility] [address] [place], [address] Absolute Neut 12.6 X10 3/uL High 2.0-7.7 [facility] Comment on above: Performed By: #### L 100.0100 ####[facility] [address] [place], [address] Basophils/100 WBC (Bld) 0.1 % Normal 0-1 [facility] Comment on above: Performed By: #### L 100.0100 ####[facility] [address] [place], [address] Eosinophils/100 WBC (Bld) 0.0 % Normal 0-5 [facility] Comment on above: Performed By: #### L 100.0100 ####[facility] [address] [place], [address] Erythrocyte distribution width (RBC) [Ratio] 17.1 % High 11.6-14.6 [facility] Comment on above: Performed By: #### L 100.0100 ####[facility] [address] [place], [address] Hematocrit (Bld) [Volume fraction] 25.3 % Low 40-54 [facility] Comment on above: Performed By: #### L 100.0100 ####[facility] [address] [place], [address] Hemoglobin (Bld) [Mass/Vol] 7.8 g/dL Low 13.0-16.5 [facility] Comment on above: Performed By: #### L 100.0100 ####[facility] [address] [place], [address] IG% 1.700 High 0.0-0.9 [facility] Comment on above: Result Comment: IG% - Immature Granulocytes (promyelocytes, myelocytes andmetamyelocytes) > 1% indicates that a LEFT SHIFT is Present. Performed By: #### L 100.0100 ####[facility] [address] [place], [address] Lymphocytes/100 WBC (Bld) 2.9 % Low 19-41 [facility] Comment on above: Performed By: #### L 100.0100 ####[facility] [address] [place], [address] MCH (RBC) [Entitic mass] 26.2 pg Low 27.0-32.0 [facility] Comment on above: Performed By: #### L 100.0100 ####[facility] [address] [place], [address] MCHC (RBC) [Mass/Vol] 30.8 g/dL Low 32-36 [facility] Comment on above: Performed By: #### L 100.0100 ####[facility] [address] [place], [address] MCV (RBC) [Entitic vol] 84.9 fL Normal 80-94 [facility] Comment on above: Performed By: #### L 100.0100 ####[facility] [address] [place], [address] Monocytes/100 WBC (Bld) 4.5 % Normal 0-10 [facility] Comment on above: Performed By: #### L 100.0100 ####[facility] [address] [place], [address] Neutrophils/100 WBC (Bld) 90.8 % High 47-70 [facility] Comment on above: Performed By: #### L 100.0100 ####[facility] [address] [place], [address] Nucleated RBC (Bld) [#/Vol] 1.2 10*3/uL Normal 0-5 [facility] Comment on above: Performed By: #### L 100.0100 ####[facility] [address] [place], [address] Platelet mean volume (Bld) [Entitic vol] 9.6 fL Normal 6.2-12.0 [facility] Comment on above: Performed By: #### L 100.0100 ####[facility] [address] [place], [address] Platelets (Bld) [#/Vol] 275 10*3/uL Normal 150-450 [facility] Comment on above: Performed By: #### L 100.0100 ####[facility] [address] [place], [address] RBC (Bld) [#/Vol] 2.98 10*6/uL Low 4.6-6.2 [facility] Comment on above: Performed By: #### L 100.0100 ####[facility] [address] [place], [address] RDW SD 51.7 fl High 35.1-43.9 [facility] Comment on above: Performed By: #### L 100.0100 ####[facility] [address] [place], [address] WBC (Bld) [#/Vol] 13.9 10*3/uL High 4.4-11.0 [facility] Comment on above: Performed By: #### L 100.0100 ####[facility] [address] [place], [address] Absolute Lymph 0.37 X10 3/uL Low 0.83-4.51 [facility] Comment on above: Performed By: #### L 100.0100 ####[facility] [address] [place], [address] Absolute Neut 12.7 X10 3/uL High 2.0-7.7 [facility] Comment on above: Performed By: #### L 100.0100 ####[facility] [address] [place], [address] Basophils/100 WBC (Bld) 0.1 % Normal 0-1 [facility] Comment on above: Performed By: #### L 100.0100 ####[facility] [address] [place], [address] Eosinophils/100 WBC (Bld) 0.0 % Normal 0-5 [facility] Comment on above: Performed By: #### L 100.0100 ####[facility] [address] [place], [address] Erythrocyte distribution width (RBC) [Ratio] 16.8 % High 11.6-14.6 [facility] Comment on above: Performed By: #### L 100.0100 ####[facility] [address] [place], [address] Hematocrit (Bld) [Volume fraction] 26.5 % Low 40-54 [facility] Comment on above: Performed By: #### L 100.0100 ####[facility] [address] [place], [address] Hemoglobin (Bld) [Mass/Vol] 8.3 g/dL Low 13.0-16.5 [facility] Comment on above: Performed By: #### L 100.0100 ####[facility] [address] [place], [address] IG% 1.800 High 0.0-0.9 [facility] Comment on above: Result Comment: IG% - Immature Granulocytes (promyelocytes, myelocytes andmetamyelocytes) > 1% indicates that a LEFT SHIFT is Present. Performed By: #### L 100.0100 ####[facility] [address] [place], [address] Lymphocytes/100 WBC (Bld) 2.7 % Low 19-41 [facility] Comment on above: Performed By: #### L 100.0100 ####[facility] [address] [place], [address] MCH (RBC) [Entitic mass] 26.8 pg Low 27.0-32.0 [facility] Comment on above: Performed By: #### L 100.0100 ####[facility] [address] [place], [address] MCHC (RBC) [Mass/Vol] 31.3 g/dL Low 32-36 [facility] Comment on above: Performed By: #### L 100.0100 ####[facility] [address] [place], [address] MCV (RBC) [Entitic vol] 85.5 fL Normal 80-94 [facility] Comment on above: Performed By: #### L 100.0100 ####[facility] [address] [place], [address] Monocytes/100 WBC (Bld) 2.1 % Normal 0-10 [facility] Comment on above: Performed By: #### L 100.0100 ####[facility] [address] [place], [address] Neutrophils/100 WBC (Bld) 93.3 % High 47-70 [facility] Comment on above: Performed By: #### L 100.0100 ####[facility] [address] [place], [address] Nucleated RBC (Bld) [#/Vol] 0.9 10*3/uL Normal 0-5 [facility] Comment on above: Performed By: #### L 100.0100 ####[facility] [address] [place], [address] Platelet mean volume (Bld) [Entitic vol] 9.7 fL Normal 6.2-12.0 [facility] Comment on above: Performed By: #### L 100.0100 ####[facility] [address] [place], [address] Platelets (Bld) [#/Vol] 277 10*3/uL Normal 150-450 [facility] Comment on above: Performed By: #### L 100.0100 ####[facility] [address] [place], [address] RBC (Bld) [#/Vol] 3.10 10*6/uL Low 4.6-6.2 [facility] Comment on above: Performed By: #### L 100.0100 ####[facility] [address] [place], [address] RDW SD 50.8 fl High 35.1-43.9 [facility] Comment on above: Performed By: #### L 100.0100 ####[facility] [address] [place], [address] WBC (Bld) [#/Vol] 13.6 10*3/uL High 4.4-11.0 [facility] Comment on above: Performed By: #### L 100.0100 ####[facility] [address] [place], [address] Absolute Neut Normal 2.0-7.7 [facility] Comment on above: Result Comment: Canc elled via OM: Order cancelled - Patient discharged Performed By: #### L 100.0100, L500.2500 ####[facility] [address] [place], [address] HCT Normal 40-54 [facility] Comment on above: Result Comment: Canc elled via OM: Order cancelled - Patient discharged Performed By: #### L 100.0100, L500.2500 ####[facility] [address] [place], [address] HGB Normal 13.0-16.5 [facility] Comment on above: Result Comment: Canc elled via OM: Order cancelled - Patient discharged Performed By: #### L 100.0100, L500.2500 ####[facility] [address] [place], [address] MCH Normal 27.0-32.0 [facility] Comment on above: Result Comment: Canc elled via OM: Order cancelled - Patient discharged Performed By: #### L 100.0100, L500.2500 ####[facility] [address] [place], [address] MCHC Normal 32-36 [facility] Comment on above: Result Comment: Canc elled via OM: Order cancelled - Patient discharged Performed By: #### L 100.0100, L500.2500 ####[facility] [address] [place], [address] MCV Normal 80-94 [facility] Comment on above: Result Comment: Canc elled via OM: Order cancelled - Patient discharged Performed By: #### L 100.0100, L500.2500 ####[facility] [address] [place], [address] NEUT% Normal 47-70 [facility] Comment on above: Result Comment: Canc elled via OM: Order cancelled - Patient discharged Performed By: #### L 100.0100, L500.2500 ####[facility] [address] [place], [address] PLT Normal 150-450 [facility] Comment on above: Result Comment: Canc elled via OM: Order cancelled - Patient discharged Performed By: #### L 100.0100, L500.2500 ####[facility] [address] [place], [address] RBC Normal 4.6-6.2 [facility] Comment on above: Result Comment: Canc elled via OM: Order cancelled - Patient discharged Performed By: #### L 100.0100, L500.2500 ####[facility] [address] [place], [address] RDW CV Normal 11.6-14.6 [facility] Comment on above: Result Comment: Canc elled via OM: Order cancelled - Patient discharged Performed By: #### L 100.0100, L500.2500 ####[facility] [address] [place], [address] RDW SD Normal 35.1-43.9 [facility] Comment on above: Result Comment: Canc elled via OM: Order cancelled - Patient discharged Performed By: #### L 100.0100, L500.2500 ####[facility] [address] [place], [address] WBC Normal 4.4-11.0 [facility] Comment on above: Result Comment: Canc elled via OM: Order cancelled - Patient discharged Performed By: #### L 100.0100, L500.2500 ####[facility] [address] [place], [address] Absolute Lymph 0.44 X10 3/uL Low 0.83-4.51 [facility] Comment on above: Performed By: #### L 100.0100, L500.2500 ####[facility] [address] [place], [address] Absolute Neut 19.1 X10 3/uL High 2.0-7.7 [facility] Comment on above: Performed By: #### L 100.0100, L500.2500 ####[facility] [address] [place], [address] Basophils/100 WBC (Bld) 0.1 % Normal 0-1 [facility] Comment on above: Performed By: #### L 100.0100, L500.2500 ####[facility] [address] [place], [address] Eosinophils/100 WBC (Bld) 0.0 % Normal 0-5 [facility] Comment on above: Performed By: #### L 100.0100, L500.2500 ####[facility] [address] [place], [address] Erythrocyte distribution width (RBC) [Ratio] 16.1 % High 11.6-14.6 [facility] Comment on above: Performed By: #### L 100.0100, L500.2500 ####[facility] [address] [place], [address] Hematocrit (Bld) [Volume fraction] 22.9 % Low 40-54 [facility] Comment on above: Performed By: #### L 100.0100, L500.2500 ####[facility] [address] [place], [address] Hemoglobin (Bld) [Mass/Vol] 6.7 g/dL Low 13.0-16.5 [facility] Comment on above: Performed By: #### L 100.0100, L500.2500 ####[facility] [address] [place], [address] IG% 1.400 High 0.0-0.9 [facility] Comment on above: Result Comment: IG% - Immature Granulocytes (promyelocytes, myelocytes andmetamyelocytes) > 1% indicates that a LEFT SHIFT is Present. Performed By: #### L 100.0100, L500.2500 ####[facility] [address] [place], [address] Lymphocytes/100 WBC (Bld) 2.2 % Low 19-41 [facility] Comment on above: Performed By: #### L 100.0100, L500.2500 ####[facility] [address] [place], [address] MCH (RBC) [Entitic mass] 26.3 pg Low 27.0-32.0 [facility] Comment on above: Performed By: #### L 100.0100, L500.2500 ####[facility] [address] [place], [address] MCHC (RBC) [Mass/Vol] 29.3 g/dL Low 32-36 [facility] Comment on above: Performed By: #### L 100.0100, L500.2500 ####[facility] [address] [place], [address] MCV (RBC) [Entitic vol] 89.8 fL Normal 80-94 [facility] Comment on above: Performed By: #### L 100.0100, L500.2500 ####[facility] [address] [place], [address] Monocytes/100 WBC (Bld) 1.4 % Normal 0-10 [facility] Comment on above: Performed By: #### L 100.0100, L500.2500 ####[facility] [address] [place], [address] Neutrophils/100 WBC (Bld) 94.9 % High 47-70 [facility] Comment on above: Performed By: #### L 100.0100, L500.2500 ####[facility] [address] [place], [address] Nucleated RBC (Bld) [#/Vol] 0.3 10*3/uL Normal 0-5 [facility] Comment on above: Performed By: #### L 100.0100, L500.2500 ####[facility] [address] [place], [address] Platelet mean volume (Bld) [Entitic vol] 9.7 fL Normal 6.2-12.0 [facility] Comment on above: Performed By: #### L 100.0100, L500.2500 ####[facility] [address] [place], [address] Platelets (Bld) [#/Vol] 294 10*3/uL Normal 150-450 [facility] Comment on above: Performed By: #### L 100.0100, L500.2500 ####[facility] [address] [place], [address] RBC (Bld) [#/Vol] 2.55 10*6/uL Low 4.6-6.2 [facility] Comment on above: Performed By: #### L 100.0100, L500.2500 ####[facility] [address] [place], [address] RDW SD 51.7 fl High 35.1-43.9 [facility] Comment on above: Performed By: #### L 100.0100, L500.2500 ####[facility] [address] [place], [address] WBC (Bld) [#/Vol] 20.1 10*3/uL High 4.4-11.0 [facility] Comment on above: Performed By: #### L 100.0100, L500.2500 ####[facility] [address] [place], [address] CTA Abd/Pelvis W/WO Contrast on 10-06-2023 CTA Abd/Pelvis W/WO Contrast Normal [facility] Comprehensive Metabolic Prof ilon 10-06-2023 Albumin [Mass/Vol] 2.4 g/dL Low 3.2-5.0 [facility] Comment on above: Performed By: #### L 501.5200, L500.4050 ####[facility] [address] [place], [address] Albumin/Globulin [Mass ratio] 0.9 {ratio} Normal 0.9-2.4 [facility] Comment on above: Performed By: #### L 501.5200, L500.4050 ####[facility] [address] [place], [address] ALK P 54 U/L Normal 45-117 [facility] Comment on above: Performed By: #### L 501.5200, L500.4050 ####[facility] [address] [place], [address] ALT [Catalytic activity/Vol] 22 U/L Normal 16-61 [facility] Comment on above: Performed By: #### L 501.5200, L500.4050 ####[facility] [address] [place], [address] AST [Catalytic activity/Vol] 25 U/L Normal 15-37 [facility] Comment on above: Performed By: #### L 501.5200, L500.4050 ####[facility] [address] [place], [address] Bilirubin [Mass/Vol] 1.10 mg/dL High 0.20-1.00 [facility] Comment on above: Result Comment: For patients on eltrombopag therapy, use of Dimension Nickerson TBIL is not recommended. Performed By: #### L 501.5200, L500.4050 ####[facility] [address] [place], [address] BUN/CRE 29.4 RATIO High 10-20 [facility] Comment on above: Performed By: #### L 501.5200, L500.4050 ####[facility] [address] [place], [address] CA,Total 7.5 mg/dL Low 8.5-10.1 [facility] Comment on above: Performed By: #### L 501.5200, L500.4050 ####[facility] [address] [place], [address] Chloride [Moles/Vol] 111 mmol/L High 98-107 [facility] Comment on above: Performed By: #### L 501.5200, L500.4050 ####[facility] [address] [place], [address] CO2 [Moles/Vol] 23.0 mmol/L Normal 21.0-32.0 [facility] Comment on above: Performed By: #### L 501.5200, L500.4050 ####[facility] [address] [place], [address] Creatinine [Mass/Vol] 1.53 mg/dL High 0.70-1.30 [facility] Comment on above: Result Comment: The validity of the calculated GFR GFRAA in patients over70 years has not been determined. Clinical correlation isessential. Performed By: #### L 501.5200, L500.4050 ####[facility] [address] [place], [address] ECRCL 40.33 ml/min Normal [facility] Comment on above: Performed By: #### L 501.5200, L500.4050 ####[facility] [address] [place], [address] EST GFR - AA 56 mL/min Low >60 [facility] Comment on above: Result Comment: Afri can Lebanese GFR Calc Performed By: #### L 501.5200, L500.4050 ####[facility] [address] [place], [address] GAP 8 Normal 5-15 [facility] Comment on above: Performed By: #### L 501.5200, L500.4050 ####[facility] [address] [place], [address] GFR/1.73 sq M.predicted among non-blacks MDRD (S/P/Bld) [Vol rate/Area] 47 mL/min/{1.73_m2} Low >60 [facility] Comment on above: Result Comment: Non- GFR Calc Performed By: #### L 501.5200, L500.4050 ####[facility] [address] [place], [address] Globulin (S) [Mass/Vol] 2.6 g/dL Normal 2.2-4.2 [facility] Comment on above: Performed By: #### L 501.5200, L500.4050 ####[facility] [address] [place], [address] Glucose [Mass/Vol] 165 mg/dL High 74-106 [facility] Comment on above: Result Comment: Fast ing Glucose result greater than or equal to 126 mg/dLsuggests DIABETES MELLITUS per A.D.A. criteria. Performed By: #### L 501.5200, L500.4050 ####[facility] [address] [place], [address] Potassium [Moles/Vol] 4.7 mmol/L Normal 3.5-5.1 [facility] Comment on above: Performed By: #### L 501.5200, L500.4050 ####[facility] [address] [place], [address] Sodium [Moles/Vol] 142 mmol/L Normal 136-145 [facility] Comment on above: Performed By: #### L 501.5200, L500.4050 ####[facility] [address] [place], [address] T PROT 5.0 g/dL Low 6.4-8.2 [facility] Comment on above: Performed By: #### L 501.5200, L500.4050 ####[facility] [address] [place], [address] Urea nitrogen [Mass/Vol] 45 mg/dL High 7-18 [facility] Comment on above: Performed By: #### L 501.5200, L500.4050 ####[facility] [address] [place], [address] Consultation - Cardiologyon 10-06-2023 Consultation - Cardiology Normal [facility] Consultation - Intensiviston 10-06-2023 Consultation - Grinder Set Up Operator Thread Normal [facility] Consultation - Grinder Set Up Operator Thread Normal [facility] Echo Complete W/ Contraston 10-06-2023 Echo Complete W/ Contrast Normal [facility] Hemoglobinon 10-06-2023 Hemoglobin (Bld) [Mass/Vol] 6.5 g/dL Low 13.0-16.5 [facility] Comment on above: Performed By: #### L 100.1300 ####[facility] [address] [place], [place], [address] L501.4020on 10-06-2023 TROPONIN-I HS 96 pg/mL High 3.0-78.0 [facility] Comment on above: Order Comment: Comme nts: SPECIMEN #3'TROP' Serial specimen #1, #2 or #3: 3 Result Comment: Plea se Note: New Test Units and Gender Specific Reference Ranges. For more information see Policy Stat Procedure Nickerson High Sensitivity Troponin (TNIH) and attachments. Performed By: #### L 501.4020 ####[facility] [address] [place], [place], [id number] TROPONIN-I HS 66 pg/mL Normal 3.0-78.0 [facility] Comment on above: Order Comment: Comme nts: SPECIMEN #2'TROP' Serial specimen #1, #2 or #3: 2 Result Comment: Plea se Note: New Test Units and Gender Specific Reference Ranges. For more information see Policy Stat Procedure Nickerson High Sensitivity Troponin (TNIH) and attachments. Performed By: #### L 501.4020 ####[facility] [address] [place], [place], [address] TROPONIN-I HS 55 pg/mL Normal 3.0-78.0 [facility] Comment on above: Order Comment: 'TROP ' Serial specimen #1, #2 or #3: 1 Result Comment: Plea se Note: New Test Units and Gender Specific Reference Ranges. For more information see Policy Stat Procedure Nickerson High Sensitivity Troponin (TNIH) and attachments. Performed By: #### L 501.4020 ####[facility] [address] [place], [address] Lactic Acidon 10-06-2023 Lactate [Moles/Vol] 1.9 mmol/L Normal 0.4-1.9 [facility] Comment on above: Performed By: #### L 503.6005 ####[facility] [address] [place], [address] Lactate [Moles/Vol] 2.1 mmol/L Invalid Interpretation Code 0.4-1.9 [facility] Comment on above: Order Comment: Y Result Comment: Crit ical Result(s) Called at: 01:51:32 10/06/2023 by:Yina davis. Results read back by same. Performed By: #### L 503.6005 ####[facility] [address] [place], [address] M8200.1075on 10-06-2023 M8200.1075 Normal Reference Ran ge = Negative MRSA/SAUR WOUND PCR GeneXpert Instrument, PCR method MRSA PCR MRSA NEGATIVE STAPH. AUREUS PCR STAPH. AUREUS NEGATIVE Normal [facility] Comment on above: Performed By: #### M 8200.1075 ####[facility] [address] [place], [address] MR/CON.PCM.GIon 10-06-2023 MR/CON.PCM.GI Normal [facility] Magnesiumon 10-06-2023 Magnesium [Mass/Vol] 2.2 mg/dL Normal 1.6-2.6 [facility] Comment on above: Performed By: #### L 501.5200, L500.4050 ####[facility] [address] [place], [address] Phosphoruson 10-06-2023 Phosphate [Mass/Vol] 6.1 mg/dL High 2.5-4.9 [facility] Comment on above: Performed By: #### L 501.2300 ####[facility] [address] [place], [place], [address] Type AND Screenon 10-06-2023 ABO and Rh group Nom (Bld) Blood group O Rh(D) negative Normal [facility] Comment on above: Order Comment: CMV N EG? NNumber of units to transfuse: 2Reason for Ordering Blood: AcuteAre the blood/blood products to be transfused? YIs the patient having/had surgery? NNWhen ReadyNYA Performed By: #### B RC, BTS ####[facility] [address] [place], [place], [id number] 12 Lead EKGon 10-05-[address] [facility] BNP,B-Type NATRIURETIC PEPTI Vannessa 10-05-2023 Natriuretic peptide B (Bld) [Mass/Vol] 53.7 pg/mL Normal 0-100 [facility] Comment on above: Performed By: #### L 500.2500, L100.0100, L501.4020, L503.6620 ####[facility] [address] [place], [place], [address] Basic Metabolic Profile (BMP )on 10-05-2023 BUN/CRE 32.7 RATIO High 10-20 [facility] Comment on above: Performed By: #### L 500.2500 ####[facility] [address] [place], [place], [id number] CA,Total 8.9 mg/dL Normal 8.5-10.1 [facility] Comment on above: Performed By: #### L 500.2500 ####[facility] [address] [place], [address] Chloride [Moles/Vol] 105 mmol/L Normal 98-107 [facility] Comment on above: Performed By: #### L 500.2500 ####[facility] [address] [place], [address] CO2 [Moles/Vol] 27.0 mmol/L Normal 21.0-32.0 [facility] Comment on above: Performed By: #### L 500.2500 ####[facility] [address] [place], [address] Creatinine [Mass/Vol] 1.01 mg/dL Normal 0.70-1.30 [facility] Comment on above: Result Comment: The validity of the calculated GFR GFRAA in patients over70 years has not been determined. Clinical correlation isessential. Performed By: #### L 500.2500 ####[facility] [address] [place], [address] ECRCL 61.09 ml/min Normal [facility] Comment on above: Performed By: #### L 500.2500 ####[facility] [address] [place], [address] EST GFR - AA 91 mL/min Normal >60 [facility] Comment on above: Result Comment: Afri can Lebanese GFR Calc Performed By: #### L 500.2500 ####[facility] [address] [place], [address] GAP 6 Normal 5-15 [facility] Comment on above: Performed By: #### L 500.2500 ####[facility] [address] [place], [address] GFR/1.73 sq M.predicted among non-blacks MDRD (S/P/Bld) [Vol rate/Area] 75 mL/min/{1.73_m2} Normal >60 [facility] Comment on above: Result Comment: Non- GFR Calc Performed By: #### L 500.2500 ####[facility] [address] [place], [address] Glucose [Mass/Vol] 87 mg/dL Normal 74-106 [facility] Comment on above: Performed By: #### L 500.2500 ####[facility] [address] [place], [address] Potassium [Moles/Vol] 4.4 mmol/L Normal 3.5-5.1 [facility] Comment on above: Performed By: #### L 500.2500 ####[facility] [address] [place], [address] Sodium [Moles/Vol] 138 mmol/L Normal 136-145 [facility] Comment on above: Performed By: #### L 500.2500 ####[facility] [address] [place], [address] Urea nitrogen [Mass/Vol] 33 mg/dL High 7-18 [facility] Comment on above: Performed By: #### L 500.2500 ####[facility] [address] [place], [address] BUN/CRE 32.1 RATIO High 10-20 [facility] Comment on above: Order Comment: 'TROP ' Serial specimen #1, #2 or #3: 1 Performed By: #### L 500.2500, L100.0100, L501.4020, L503.6620 ####[facility] [address] [place], [address] CA,Total 8.4 mg/dL Low 8.5-10.1 [facility] Comment on above: Order Comment: 'TROP ' Serial specimen #1, #2 or #3: 1 Performed By: #### L 500.2500, L100.0100, L501.4020, L503.6620 ####[facility] [address] [place], [address] Chloride [Moles/Vol] 104 mmol/L Normal 98-107 [facility] Comment on above: Order Comment: 'TROP ' Serial specimen #1, #2 or #3: 1 Performed By: #### L 500.2500, L100.0100, L501.4020, L503.6620 ####[facility] [address] [place], [address] CO2 [Moles/Vol] 26.0 mmol/L Normal 21.0-32.0 [facility] Comment on above: Order Comment: 'TROP ' Serial specimen #1, #2 or #3: 1 Performed By: #### L 500.2500, L100.0100, L501.4020, L503.6620 ####[facility] [address] [place], [address] Creatinine [Mass/Vol] 1.09 mg/dL Normal 0.70-1.30 [facility] Comment on above: Order Comment: 'TROP ' Serial specimen #1, #2 or #3: 1 Result Comment: The validity of the calculated GFR GFRAA in patients over70 years has not been determined. Clinical correlation isessential. Performed By: #### L 500.2500, L100.0100, L501.4020, L503.6620 ####[facility] [address] [place], [address] ECRCL 56.61 ml/min Normal [facility] Comment on above: Order Comment: 'TROP ' Serial specimen #1, #2 or #3: 1 Performed By: #### L 500.2500, L100.0100, L501.4020, L503.6620 ####[facility] [address] [place], [address] EST GFR - AA 84 mL/min Normal >60 [facility] Comment on above: Order Comment: 'TROP ' Serial specimen #1, #2 or #3: 1 Result Comment: Afri can Lebanese GFR Calc Performed By: #### L 500.2500, L100.0100, L501.4020, L503.6620 ####[facility] [address] [place], [address] GAP 4 Low 5-15 [facility] Comment on above: Order Comment: 'TROP ' Serial specimen #1, #2 or #3: 1 Performed By: #### L 500.2500, L100.0100, L501.4020, L503.6620 ####[facility] [address] [place], [address] GFR/1.73 sq M.predicted among non-blacks MDRD (S/P/Bld) [Vol rate/Area] 69 mL/min/{1.73_m2} Normal >60 [facility] Comment on above: Order Comment: 'TROP ' Serial specimen #1, #2 or #3: 1 Result Comment: Non- GFR Calc Performed By: #### L 500.2500, L100.0100, L501.4020, L503.6620 ####[facility] [address] [place], [address] Glucose [Mass/Vol] 166 mg/dL High 74-106 [facility] Comment on above: Order Comment: 'TROP ' Serial specimen #1, #2 or #3: 1 Result Comment: Fast ing Glucose result greater than or equal to 126 mg/dLsuggests DIABETES MELLITUS per A.D.A. criteria. Performed By: #### L 500.2500, L100.0100, L501.4020, L503.6620 ####[facility] [address] [place], [address] Potassium [Moles/Vol] 8.4 mmol/L Invalid Interpretation Code 3.5-5.1 [facility] Comment on above: Order Comment: 'TROP ' Serial specimen #1, #2 or #3: 1 Result Comment: Mode rate Hemolysis, Result may be falsely increased.Critical Result(s) Called at: 19:02:24 10/05/2023 by:DAVID HEARN TO NORY WALTERS. Results read back by same. Performed By: #### L 500.2500, L100.0100, L501.4020, L503.6620 ####[facility] [address] [place], [address] Sodium [Moles/Vol] 134 mmol/L Low 136-145 [facility] Comment on above: Order Comment: 'TROP ' Serial specimen #1, #2 or #3: 1 Performed By: #### L 500.2500, L100.0100, L501.4020, L503.6620 ####[facility] [address] [place], [address] Urea nitrogen [Mass/Vol] 35 mg/dL High 7-18 [facility] Comment on above: Order Comment: 'TROP ' Serial specimen #1, #2 or #3: 1 Performed By: #### L 500.2500, L100.0100, L501.4020, L503.6620 ####[facility] [address] [place], [address] BUN Normal -18 [facility] Comment on above: Result Comment: Canc elled via OM: Order cancelled - Patient discharged Performed By: #### L 100.0100, L500.2500 ####[facility] [address] [place], [address] BUN/CRE Normal 10-20 [facility] Comment on above: Result Comment: Canc elled via OM: Order cancelled - Patient discharged Performed By: #### L 100.0100, L500.2500 ####[facility] [address] [place], [address] CA,Total Normal 8.5-10.1 [facility] Comment on above: Result Comment: Canc elled via OM: Order cancelled - Patient discharged Performed By: #### L 100.0100, L500.2500 ####[facility] [address] [place], [address] CL Normal 98-107 [facility] Comment on above: Result Comment: Canc elled via OM: Order cancelled - Patient discharged Performed By: #### L 100.0100, L500.2500 ####[facility] [address] [place], [address] CO2 Normal 21.0-32.0 [facility] Comment on above: Result Comment: Canc elled via OM: Order cancelled - Patient discharged Performed By: #### L 100.0100, L500.2500 ####[facility] [address] [place], [address] CREAT,SERUM Normal 0.70-1.30 [facility] Comment on above: Result Comment: Canc elled via OM: Order cancelled - Patient discharged Performed By: #### L 100.0100, L500.2500 ####[facility] [address] [place], [address] EST GFR Normal >60 [facility] Comment on above: Result Comment: Canc elled via OM: Order cancelled - Patient discharged Performed By: #### L 100.0100, L500.2500 ####[facility] [address] [place], [address] EST GFR - AA Normal >60 [facility] Comment on above: Result Comment: Canc elled via OM: Order cancelled - Patient discharged Performed By: #### L 100.0100, L500.2500 ####[facility] [address] [place], [address] GAP Normal 5-15 [facility] Comment on above: Result Comment: Canc elled via OM: Order cancelled - Patient discharged Performed By: #### L 100.0100, L500.2500 ####[facility] [address] [place], [address] GLU Normal 74-106 [facility] Comment on above: Result Comment: Canc elled via OM: Order cancelled - Patient discharged Performed By: #### L 100.0100, L500.2500 ####[facility] [address] [place], [address] Potassium Normal 3.5-5.1 [facility] Comment on above: Result Comment: Canc elled via OM: Order cancelled - Patient discharged Performed By: #### L 100.0100, L500.2500 ####[facility] [address] [place], [address] Basic Metabolic Profile (BMP) Normal 136-145 [facility] Comment on above: Result Comment: Canc elled via OM: Order cancelled - Patient discharged Performed By: #### L 100.0100, L500.2500 ####[facility] [address] [place], [address] Bedside Glucoseon 10-05-2023 FINGERSTICK GLU 115 mg/dL High 74-106 [facility] Comment on above: Result Comment: BOB GEORGE OF PATIENT CARE PER NURSING PROTOCOL Performed By: #### L 501.080 ####[facility] [address] [place], [address] Brain/Head without Contrasto n 10-05-2023 Brain/Head without Contrast Normal [facility] CBC W/Diff, Automatedon 08- Anisocytosis Ql (Bld) RARE Normal [facility] Comment on above: Performed By: #### L 500.2500, L100.0100, L501.4020, L503.6620 ####[facility] [address] [place], [address] HYPOCHROMASIA 1+ Normal [facility] Comment on above: Performed By: #### L 500.2500, L100.0100, L501.4020, L503.6620 ####[facility] [address] [place], [address] MACROCYTOSIS RARE Normal [facility] Comment on above: Performed By: #### L 500.2500, L100.0100, L501.4020, L503.6620 ####[facility] [address] [place], [address] [address] [facility] Comment on above: Performed By: #### L 500.2500, L100.0100, L501.4020, L503.6620 ####[facility] [address] [place], [address] [address] Normal [facility] Comment on above: Performed By: #### L 500.2500, L100.0100, L501.4020, L503.6620 ####[facility] [address] [place], [address] PLT EST ADEQUATE Normal ADEQ [facility] Comment on above: Performed By: #### L 500.2500, L100.0100, L501.4020, L503.6620 ####[facility] [address] [place], [address] RED CELL MORPH N CHROM Normal NORM C C [facility] Comment on above: Performed By: #### L 500.2500, L100.0100, L501.4020, L503.6620 ####[facility] [address] [place], [address] SMEAR COMMENT SEE COMMENT Normal [facility] Comment on above: Result Comment: LYMP HOPENIA NOTED Performed By: #### L 500.2500, L100.0100, L501.4020, L503.6620 ####[facility] [address] [place], [address] Absolute Neut Normal 2.0-7.7 [facility] Comment on above: Result Comment: Canc elled via OM: Order cancelled - Patient discharged Performed By: #### L 100.0100, L500.2500 ####[facility] [address] [place], [address] HCT Normal 40-54 [facility] Comment on above: Result Comment: Canc elled via OM: Order cancelled - Patient discharged Performed By: #### L 100.0100, L500.2500 ####[facility] [address] [place], [address] HGB Normal 13.0-16.5 [facility] Comment on above: Result Comment: Canc elled via OM: Order cancelled - Patient discharged Performed By: #### L 100.0100, L500.2500 ####[facility] [address] [place], [address] MCH Normal 27.0-32.0 [facility] Comment on above: Result Comment: Canc elled via OM: Order cancelled - Patient discharged Performed By: #### L 100.0100, L500.2500 ####[facility] [address] [place], [address] MCHC Normal 32-36 [facility] Comment on above: Result Comment: Canc elled via OM: Order cancelled - Patient discharged Performed By: #### L 100.0100, L500.2500 ####[facility] [address] [place], [address] MCV Normal 80-94 [facility] Comment on above: Result Comment: Canc elled via OM: Order cancelled - Patient discharged Performed By: #### L 100.0100, L500.2500 ####[facility] [address] [place], [address] NEUT% Normal 47-70 [facility] Comment on above: Result Comment: Canc elled via OM: Order cancelled - Patient discharged Performed By: #### L 100.0100, L500.2500 ####[facility] [address] [place], [address] PLT Normal 150-450 [facility] Comment on above: Result Comment: Canc elled via OM: Order cancelled - Patient discharged Performed By: #### L 100.0100, L500.2500 ####[facility] [address] [place], [address] RBC Normal 4.6-6.2 [facility] Comment on above: Result Comment: Canc elled via OM: Order cancelled - Patient discharged Performed By: #### L 100.0100, L500.2500 ####[facility] [address] [place], [address] RDW CV Normal 11.6-14.6 [facility] Comment on above: Result Comment: Canc elled via OM: Order cancelled - Patient discharged Performed By: #### L 100.0100, L500.2500 ####[facility] [address] [place], [address] RDW SD Normal 35.1-43.9 [facility] Comment on above: Result Comment: Canc elled via OM: Order cancelled - Patient discharged Performed By: #### L 100.0100, L500.2500 ####[facility] [address] [place], [address] WBC Normal 4.4-11.0 [facility] Comment on above: Result Comment: Canc elled via OM: Order cancelled - Patient discharged Performed By: #### L 100.0100, L500.2500 ####[facility] [address] [place], [address] CNPNon 10-05-2023 CNPN Normal [facility] CTA Chest W/WO Contraston CTA Chest W/WO Contrast Normal [facility] Emergency Department Summary on 10-05-2023 Emergency Department Summary Normal [facility] Hemoglobinon 10-05-2023 Hemoglobin (Bld) [Mass/Vol] 6.8 g/dL Low 13.0-16.5 [facility] Comment on above: Performed By: #### L 100.1300 ####[facility] [address] [place], [address] L501.4020on 10-05-2023 TROPONIN-I HS 65 pg/mL Normal 3.0-78.0 [facility] Comment on above: Order Comment: 'TROP ' Serial specimen #1, #2 or #3: 1 Result Comment: Luz tejada Note: New Test Units and Gender Specific Reference Ranges. For more information see Policy Stat Procedure Nickerson High Sensitivity Troponin (TNIH) and attachments. Performed By: #### L 500.2500, L100.0100, L501.4020, L503.6620 ####[facility] [address] [place], [address] Lactic Acidon 10-05-2023 Lactate [Moles/Vol] 3.4 mmol/L Invalid Interpretation Code 0.4-1.9 [facility] Comment on above: Order Comment: Y Result Comment: Crit ical Result(s) Called at: 20:14:57 10/05/2023 by:DAVID HEARN TO LUIS ANTONIO LEMUS. Results read back by same. Performed By: #### L 503.6005 ####[facility] [address] [place], [address] Stool Occult Blood iFOBon STOB Positive Normal [facility] Comment on above: Performed By: #### B TS, M100.7900 ####[facility] [address] [place], [address] Type AND Screenon 10-05-2023 ABO and Rh group Nom (Bld) Blood group O Rh(D) negative Normal [facility] Comment on above: Order Comment: A Performed By: #### B TS, M100.7900 ####[facility] [address] [place], [address] Venous Blood Gason 4 Blood Gas Type MARTIN Normal [facility] Comment on above: Performed By: #### L 9000.0810 ####[facility] [address] [place], [address] CO2 [Moles/Vol] 27 mmol/L Normal 23-33 [facility] Comment on above: Performed By: #### L 9000.0810 ####[facility] [address] [place], [address] Comment 02/04 12 30% Normal [facility] Comment on above: Performed By: #### L 9000.0810 ####[facility] [address] [place], [address] [address] [facility] Comment on above: Performed By: #### L 9000.0810 ####[facility] [address] [place], [address] HCO3 (Bld) [Moles/Vol] 26 mmol/L Normal 22-26 [facility] Comment on above: Performed By: #### L 9000.0810 ####[facility] [address] [place], [address] O2 Delivery Dev BiPAP Normal [facility] Comment on above: Performed By: #### L 9000.0810 ####[facility] [address] [place], [address] SITE Not entered Normal [facility] Comment on above: Performed By: #### L 9000.0810 ####[facility] [address] [place], [address] VBG BE 3 mmol/L Normal -1.0-3.5 [facility] Comment on above: Performed By: #### L 9000.0810 ####[facility] [address] [place], [address] VBG pCO2 31.4 mmHg Low 41-51 [facility] Comment on above: Performed By: #### L 9000.0810 ####[facility] [address] [place], [address] VBG pH 7.53 High 7.32-7.42 [facility] Comment on above: Performed By: #### L 9000.0810 ####[facility] [address] [place], [address] VBG PO2 114 mmHg High 25-40 [facility] Comment on above: Performed By: #### L 9000.0810 ####[facility] [address] [place], [address] VBG SO2 99 High 50-70 [facility] Comment on above: Performed By: #### L 9000.0810 ####[facility] [address] [place], [address] Basic Metabolic Profile (BMP )on 10-04-2023 BUN Normal 7-18 [facility] Comment on above: Result Comment: Canc elled via OM: Order cancelled - Patient discharged Performed By: #### L 500.2500, L100.0100 ####[facility] [address] [place], [address] BUN/CRE Normal 10-20 [facility] Comment on above: Result Comment: Canc elled via OM: Order cancelled - Patient discharged Performed By: #### L 500.2500, L100.0100 ####[facility] [address] [place], [address] CA,Total Normal 8.5-10.1 [facility] Comment on above: Result Comment: Canc elled via OM: Order cancelled - Patient discharged Performed By: #### L 500.2500, L100.0100 ####[facility] [address] [place], [address] CL Normal 98-107 [facility] Comment on above: Result Comment: Canc elled via OM: Order cancelled - Patient discharged Performed By: #### L 500.2500, L100.0100 ####[facility] [address] [place], [address] CO2 Normal 21.0-32.0 [facility] Comment on above: Result Comment: Canc elled via OM: Order cancelled - Patient discharged Performed By: #### L 500.2500, L100.0100 ####[facility] [address] [place], [address] CREAT,SERUM Normal 0.70-1.30 [facility] Comment on above: Result Comment: Canc elled via OM: Order cancelled - Patient discharged Performed By: #### L 500.2500, L100.0100 ####[facility] [address] [place], [address] EST GFR Normal >60 [facility] Comment on above: Result Comment: Canc elled via OM: Order cancelled - Patient discharged Performed By: #### L 500.2500, L100.0100 ####[facility] [address] [place], [address] EST GFR - AA Normal >60 [facility] Comment on above: Result Comment: Canc elled via OM: Order cancelled - Patient discharged Performed By: #### L 500.2500, L100.0100 ####[facility] [address] [place], [address] GAP Normal 5-15 [facility] Comment on above: Result Comment: Canc elled via OM: Order cancelled - Patient discharged Performed By: #### L 500.2500, L100.0100 ####[facility] [address] [place], [address] GLU Normal 74-106 [facility] Comment on above: Result Comment: Canc elled via OM: Order cancelled - Patient discharged Performed By: #### L 500.2500, L100.0100 ####[facility] [address] [place], [address] Potassium Normal 3.5-5.1 [facility] Comment on above: Result Comment: Canc elled via OM: Order cancelled - Patient discharged Performed By: #### L 500.2500, L100.0100 ####[facility] [address] [place], [address] Basic Metabolic Profile (BMP) Normal 136-145 [facility] Comment on above: Result Comment: Canc elled via OM: Order cancelled - Patient discharged Performed By: #### L 500.2500, L100.0100 ####[facility] [address] [place], [address] CBC W/Diff, Automatedon 08-0 -2023 Absolute Neut Normal 2.0-7.7 [facility] Comment on above: Result Comment: Canc elled via OM: Order cancelled - Patient discharged Performed By: #### L 500.2500, L100.0100 ####[facility] [address] [place], [address] HCT Normal 40-54 [facility] Comment on above: Result Comment: Canc elled via OM: Order cancelled - Patient discharged Performed By: #### L 500.2500, L100.0100 ####[facility] [address] [place], [address] HGB Normal 13.0-16.5 [facility] Comment on above: Result Comment: Canc elled via OM: Order cancelled - Patient discharged Performed By: #### L 500.2500, L100.0100 ####[facility] [address] [place], [address] MCH Normal 27.0-32.0 [facility] Comment on above: Result Comment: Canc elled via OM: Order cancelled - Patient discharged Performed By: #### L 500.2500, L100.0100 ####[facility] [address] [place], [address] MCHC Normal 32-36 [facility] Comment on above: Result Comment: Canc elled via OM: Order cancelled - Patient discharged Performed By: #### L 500.2500, L100.0100 ####[facility] [address] [place], [address] MCV Normal 80-94 [facility] Comment on above: Result Comment: Canc elled via OM: Order cancelled - Patient discharged Performed By: #### L 500.2500, L100.0100 ####[facility] [address] [place], [address] NEUT% Normal 47-70 [facility] Comment on above: Result Comment: Canc elled via OM: Order cancelled - Patient discharged Performed By: #### L 500.2500, L100.0100 ####[facility] [address] [place], [address] PLT Normal 150-450 [facility] Comment on above: Result Comment: Canc elled via OM: Order cancelled - Patient discharged Performed By: #### L 500.2500, L100.0100 ####[facility] [address] [place], [address] RBC Normal 4.6-6.2 [facility] Comment on above: Result Comment: Canc elled via OM: Order cancelled - Patient discharged Performed By: #### L 500.2500, L100.0100 ####[facility] [address] [place], [address] RDW CV Normal 11.6-14.6 [facility] Comment on above: Result Comment: Canc elled via OM: Order cancelled - Patient discharged Performed By: #### L 500.2500, L100.0100 ####[facility] [address] [place], [address] RDW SD Normal 35.1-43.9 [facility] Comment on above: Result Comment: Canc elled via OM: Order cancelled - Patient discharged Performed By: #### L 500.2500, L100.0100 ####[facility] [address] [place], [address] WBC Normal 4.4-11.0 [facility] Comment on above: Result Comment: Canc elled via OM: Order cancelled - Patient discharged Performed By: #### L 500.2500, L100.0100 ####[facility] [address] [place], [address] CNPNon 10-01-2023 CNPN Normal [facility] CNPTOUTREACHon 10-01-2023 CNPTOUTREACH Normal [facility] CNPNon 09-25-2023 CNPN Normal [facility] ALLIED HEALTHon 06-17-2023 ALLIED HEALTH HNO ID: [id number] Author: VIRGILIO HUSSEIN RT(R) Service: Radiology Author Type: Technologist Type: Allied [...] PATIENT PRESENTS WITH AN IMPLANTABLE OR ATTACHED OPERATORS TEACHER: No RADIOLOGY DEPARTMENT: Biopsy - Lung PERIPHERAL IV DATA: Not applicable SIGNED BY: RT Namita(R) June 17, 2023 10:21 AM [facility] CT BIOPSY LUNGon 06-17-2023 CT BIOPSY LUNG * * *Final Report* * * DATE OF EXAM: Jun 17 2023 11:04AM [facility] [place]UNG / PROCEDURE [...] IMPRESSION: CT-guided left thoracic biopsy as detailed. Rn Internal Medicine: PSCB Transcribe Date/Time: Jun 17 2023 12:38P Dictated by : ADI CORTEZ MD This examination was interpreted and the report reviewed and electronically signed by: ADI CORTEZ MD on Jun 17 2023 12:40PM EST [id number] Normal [facility] SURGICAL PATHOLOGYon 024 CASE REPORT Normal [facility] Comment on above: Order Comment: Fab doran Type: TISSUE SPECIMEN Ordering Facility: [facility] Address: [address] [place] [address] Result Comment: Surg ical Pathology Report Case: [id number] Authorizing Provider: Adi Cortez MD Collected: 06/17/2023 10:58 AM Ordering Location: [facility] Radiology Received: 06/17/2023 11:41 AM Pathologist: Roberto Carlos Rust MD Specimen: Lung, Left, Biopsy Performed By: #### S #### [facility] CLIA [id number] [address] [place] [address] [place] CLINICAL HISTORY Ca Left Lung. Bx is of the thickened PET positive wall of a left lung or pleural cavity Normal [facility] Comment on above: Order Comment: Fab doran Type: TISSUE SPECIMEN Ordering Facility: [facility] Address: [address] [place] [address] Performed By: #### S #### [facility] CLIA [id number] [place] FINAL DIAGNOSIS [facility] Comment on above: Order Comment: Speci men Type: TISSUE SPECIMEN Ordering Facility: [facility] Address: [address] [place] [address] Result Comment: Lung , left, biopsy: -Hyalinized fibrous tissue with giant cell reaction to polarizable material. -No malignancy identified. Performed By: #### S #### [facility] CLIA [id number] [address] [place] [address] [place] FINAL PERFORMING LAB [facility] Comment on above: Order Comment: Speci men Type: TISSUE SPECIMEN Ordering Facility: [facility] Address: [address] [place] [address] Result Comment: Diag nostic interpretation performed at [facility], [address] [place] [address] CLIA# [id number] Environmental Services Floor Tech: Abbe Wilcox M.D. Performed By: #### S #### [facility] CLIA [id number] [address] [place] [address] [place] GROSS DESCRIPTION [facility] Comment on above: Order Comment: Speci men Type: TISSUE SPECIMEN Ordering Facility: [facility] Address: [address] [place] [address] Result Comment: A. L sowmya, Left, Biopsy Received in formalin are multiple pieces of darling-red, soft tissue aggregating to 0.9 x 0.1 x <0.1 cm. Totally submitted in one cassette. Specimen may not survive processing. NMP June 17, 2023 2:55 PM. Gross examination performed at [facility], [address] [place] [address] Performed By: #### S #### [facility] CLIA [id number] [address] [place] [address] [place] XR CHEST 1V FRONTALon [...] No pneumothorax status post left lung biopsy Rn Internal Medicine: PSCB Transcribe Date/Time: Jun 17 2023 3:08P Dictated by : ADI CORTEZ MD This examination was interpreted and the report reviewed and electronically signed by: ADI CORTEZ MD on Jun 17 2023 3:09PM EST [id number] [facility] 06-12-2023 [facility] Telephone (MEXR) OSWALDO CORLEY ([id number]) 1940 M Date Time Provider Department 06/12/23 ELMIRA MENDEZ During your visit today, we recorded the following information about you: Allergies As of Date: 06/12/2023 Noted Allergy Reaction IMDUR (ISOSORBIDE MONONITRATE) 03/14/2015 4 - Hives Comments: Black out and dizziness Date Reviewed: 06/08/2023 Reviewed by: Bela Manzano MD - Fully Assessed Reason for Visit: Radiology Pre Procedure Instructions [3646] Cmt: LEFT lung biopsy Prescriptions as of [...] (AAA) without rupture*11/19/2018 Coronary artery disease involving bishop paiute acuña*03/18/2019 S/P coronary artery stent placement, status [...] Encounter Status:Closed by ELMIRA MENDEZ on 06/17/23 [facility] Absolute lymphocyte countOrd ered By: Edward Grant on 05-28-2023 Lymphocytes Auto (Unsp spec) [#/Vol] 0.29 10*3/uL 0.83-4.51 [facility] Automated lymphocyte count a s percentage of total leukocytesOrdered By: Edward Grant on 05-28-2023 Lymphocytes/100 WBC Auto (Unsp spec) 2.9 % 19-41 [facility] Basophil percentageOrdered B y: Edward Grant on 05-28-2023 Basophil percentage 5-10 SEEN /hpf 0-5 [facility] Basophils/100 WBC (Bld) 0.3 % 0-1 [facility] Chloride [Moles/Vol] 115 mmol/L 98-107 [facility] Eosinophils/100 WBC (Bld) 0.2 % 0-5 [facility] Glucose [Mass/Vol] 131 mg/dL 74-106 [facility] Comment on above: Fasting Glucose resu lt greater than or equal to 126 mg/dL suggests DIABETES MELLITUS per A.D.A. criteria. Hemoglobin (Bld) [Mass/Vol] 12.1 g/dL 13.0-16.5 [facility] Monocytes/100 WBC (Bld) 2.7 % 0-10 [facility] Neutrophils (Bld) [#/Vol] 9.5 10*3/uL 2.0-7.7 [facility] Neutrophils/100 WBC (Bld) 93.4 % 47-70 [facility] Potassium [Moles/Vol] 3.4 mmol/L 3.5-5.1 [facility] Sodium [Moles/Vol] 145 mmol/L 136-145 [facility] WBC (Bld) [#/Vol] 10.2 10*3/uL 4.4-11.0 [facility] Bilirubin Test strip Ql (U)O rdered By: Edward Grant on 05-28-2023 Bilirubin Ql (U) Negative Negative [facility] Determination of erythrocyte mean corpuscular volume (MCV)Ordered By: Edward Grant on 05-28-2023 MCV (RBC) [Entitic vol] 91.7 fL 80-94 [facility] Erythrocyte distribution wid th ratioOrdered By: Edward Grant on 05-28-2023 Erythrocyte distribution width (RBC) [Ratio] 15.3 % 11.6-14.6 [facility] Erythrocyte distribution wid th standard deviationOrdered By: [facility]amiseth on 05-28-2023 Erythrocyte distribution width (RBC) [Entitic vol] 51.2 fL 35.1-43.9 [facility] Hematocrit Auto (Bld) [Volum e fraction]Ordered By: Edward Grant on 05-28-2023 Hematocrit (Bld) [Volume fraction] 41.0 % 40-54 [facility] Immature granulocytes/100 WB C Auto (Bld)Ordered By: [facility] Grant on 05-28-2023 Immature granulocytes/100 WBC (Bld) 0.500 % 0.0-0.9 [facility] Comment on above: IG% - Immature Granu locytes (promyelocytes, myelocytes and metamyelocytes) > 1% indicates that a LEFT SHIFT is Present. Ketones Test strip Ql (U)Ord ered By: Edward Grant on 05-28-2023 Ketones Ql (U) 5 mg/dl Negative [facility] - Chemistry and C hemistry - challengeOrdered By: Ewdard Grant on 05-28-2023 CO2 [Moles/Vol] 25.0 mmol/L 21.0-32.0 [facility] Urea nitrogen/Creatinine [Mass ratio] 22.1 mg/mg 10-20 [facility] - Hematology and Cell countsOrdered By: Edward Grant on 05-28-2023 MCH (RBC) [Entitic mass] 27.1 pg 27.0-32.0 [facility] MCHC (RBC) [Mass/Vol] 29.5 g/dL 32-36 [facility] Nucleated RBC/100 WBC (Bld) [Ratio] 0 % 0-5 [facility] Platelet mean volume (Bld) [Entitic vol] 8.7 fL 6.2-12.0 [facility] Platelets (Bld) [#/Vol] 246 10*3/uL 150-450 [facility] Mucus LM Ql (Urine sed)Order ed By: Edward Grant on 05-28-2023 Mucus Ql (Urine sed) 0 SEEN /hpf [facility] Nitrite Test strip Ql (U)Ord ered By: Edward Grant on 05-28-2023 Nitrite Ql (U) Negative Negative [facility] No Panel InformationOrdered By: Edward Grant on 05-28-2023 Urine RBC > 100 SEEN /hpf 0-5 [facility] Estimated Creatinine Clearance Calc 78.44 ml/min [facility] Estimated GFR (MDRD) Amer 156 mL/min >60 [facility] Comment on above: GFR Calc Estimated GFR (MDRD) Non-Af Amer 129 mL/min >60 [facility] Comment on above: Non- GFR Calc Protein Test strip Ql (U)Ord ered By: Edward Grant on 05-28-2023 Protein Ql (U) 100 mg/dl Negative [facility] RBC Auto (Bld) [#/Vol]Ordere d By: Edward Grant on 05-28-2023 RBC (Bld) [#/Vol] 4.47 10*6/uL 4.6-6.2 [facility] Serum or plasma calcium ry urement (mass/volume)Ordered By: Edward rGant on 05-28-2023 Calcium [Mass/Vol] 7.1 mg/dL 8.5-10.1 [facility] Serum or plasma creatinine m easurement (mass/volume)Ordered By: Edward Grant on 05-28-2023 Creatinine [Mass/Vol] 0.63 mg/dL 0.70-1.30 [facility] Comment on above: The validity of the calculated GFR & GFRAA in patients over 70 years has not been determined. Clinical correlation is essential. Serum or plasma urea nitroge n measurement (mass/volume)Ordered By: Edward Grant on 05-28-2023 Urea nitrogen [Mass/Vol] 14 mg/dL 7-18 [facility] Squamous epithelial cells de tection in urine sediment by light microscopyOrdered By: Edward Grant on 05-28-2023 Epithelial cells.squamous LM Ql (Urine sed) 0 SEEN /hpf 0-5 [facility] Thin prep Papanicolaou smear with manual screeningOrdered By: Edward Grant on 05-28-2023 Thin prep Papanicolaou smear with manual screening 5 5-15 [facility] Urine blood detectionOrdered By: Edward Grant on 05-28-2023 RBC Ql (U) 250 /ul Negative [facility] Urine clarityOrdered By: Janneth Grant on 05-28-2023 Clarity (U) Cloudy Clear [facility] Urine color determinationOrd ered By: Edward Grant on 05-28-2023 Color (U) Brown Yellow [facility] Urine glucose detectionOrder ed By: Edward Grant on 05-28-2023 Glucose Ql (U) Normal mg/dl Normal [facility] Urine leukocyte esterase det ection by dipstickOrdered By: Edward Grant on 05-28-2023 Leukocyte esterase Test strip Ql (U) 25 /ul Negative [facility] Urine pHOrdered By: Edward ramirezr on 05-28-2023 pH (U) 6.5 [pH] 5.0 - 8.0 [facility] Urine sediment bacteria coun t by microscopy (number/high power field)Ordered By: Edward Grant on 05-28-2023 Bacteria LM.HPF (Urine sed) [#/Area] RARE /hpf None Seen [facility] Urine specific gravity measu rementOrdered By: Edward Grant on 05-28-2023 Specific gravity (U) [Rel density] 1.020 1.002-1.[address] [facility] Urine urobilinogen measureme ntOrdered By: Edward Grant on 05-28-2023 Urobilinogen Ql (U) Normal mg/dl Normal [facility] CNPNon 05-27-2023 CNPN Telephone (MEXR) OSWALDO CORLEY ([id number]) 1940 M Date Time Provider Department 05/27/23 MIRELA BARGER [place] During your visit today, we recorded the following information about you: Mirela Barger 05/27/2023 8:19 AM Signed Received request for lung biopsy at [place]. Sending to radiologist for approval. Mirela Barger 06/09/2023 2:49 PM Signed Lung biopsy has been approved at [place]. Left for pt to schedule. Please have pt call [phone]. Allergies As of Date: 05/27/2023 Noted Allergy Reaction IMDUR (ISOSORBIDE MONONITRATE) 03/14/2015 4 - Hives Comments: Black out and dizziness Date Reviewed: 05/18/2023 Reviewed by: Salazar Meraz DO - Fully Assessed Reason for Visit: Scheduling [0807] Cmt: Lung Biopsy Prescriptions as of 12/31/2023 [...] (AAA) without rupture*11/19/2018 Coronary artery disease involving bishop paiute acuña*03/18/2019 S/P coronary artery stent placement, status [...] Encounter Status:Closed by MIRELA BARGER on 12/31/23 [facility] Progress Noteon 04-03-2023 Progress Note [facility] CARDIOV[facility]ORACIC SURGERY [address] [place] [address] [address] [facility] [address] Dept: [phone] Dept Loc: [phone] Patient was identified and seen today via Telehealth by agreement and consent. I used the following Telehealth technology: Audio capability only. Total length of call 10 minutes. The patient was offered and advised video for a more comprehensive evaluation, but the patient declined or was unable to use video. Patient location: VV Patient Location: Home. This patient encounter is [...] stated that they are currently in the [facility]. If the patient is a minor, permission has been obtained by the parent or guardian for the patient to receive medical care at this visit. Visit type: Established Reason for Visit: Follow-up telephone conversation Assessment and plan I have spoken with Dr. Meraz ([place] oncologist), who agrees that operative treatment is [...] are concerning (more content not included)... Normal [facility] Progress Noteon 03-31-2023 Progress Note [facility] CARDIOVASCULAR & THORACIC SURGERY [address] [place] [id number] Dept: [phone] Dept Loc: [phone] Patient was identified and seen today via [...] stated that they are currently in the [facility]. If the patient is a minor, [...] this case with the patient's oncologist in [place], Dr. Meraz, who states that nonsurgical treatment [...] for the biopsy to be performed at [facility] at Dr. Meraz's request. History of [...] HLD (hyperl (more content not included)... Normal [facility] Activated partial thrombopla stin time (aPTT) in platelet poor plasma by coagulation aOrdered By: Sushila Rivers on 03-26-2023 aPTT Coag (PPP) [Time] 34.2 s 24.1-36.2 [facility] Basophil percentageOrdered B y: Jacob Suazo on 03-26-2023 Chloride [Moles/Vol] 106 mmol/L 98-107 [facility] Glucose [Mass/Vol] 132 mg/dL 74-106 [facility] Comment on above: Fasting Glucose resu lt greater than or equal to 126 mg/dL suggests DIABETES MELLITUS per A.D.A. criteria. Hemoglobin (Bld) [Mass/Vol] 11.2 g/dL 13.0-16.5 [facility] Potassium [Moles/Vol] 3.7 mmol/L 3.5-5.1 [facility] Sodium [Moles/Vol] 139 mmol/L 136-145 [facility] WBC (Bld) [#/Vol] 10.6 10*3/uL 4.4-11.0 [facility] Determination of erythrocyte mean corpuscular volume (MCV)Ordered By: Jacob Suazo on 03-26-2023 MCV (RBC) [Entitic vol] 91.3 fL 80-94 [facility] Erythrocyte distribution wid th ratioOrdered By: Jacob Suazo on 03-26-2023 Erythrocyte distribution width (RBC) [Ratio] 15.3 % 11.6-14.6 [facility] Erythrocyte distribution wid th standard deviationOrdered By: Jacob Suazo on 03-26-2023 Erythrocyte distribution width (RBC) [Entitic vol] 51.6 fL 35.1-43.9 [facility] Hematocrit Auto (Bld) [Volum e fraction]Ordered By: Jacob Suazo on 03-26-2023 Hematocrit (Bld) [Volume fraction] 36.6 % 40-54 [facility] - Chemistry and C hemistry - challengeOrdered By: Jacob Suazo on 03-26-2023 CO2 [Moles/Vol] 30.0 mmol/L 21.0-32.0 [facility] Urea nitrogen/Creatinine [Mass ratio] 21.3 mg/mg 10-20 [facility] - Chemistry and C hemistry - challengeOrdered By: Martin Zaragoza on 03-26-2023 Natriuretic peptide B (Bld) [Mass/Vol] 45.3 pg/mL 0-100 [facility] - Hematology and Cell countsOrdered By: Jacob Suazo on 03-26-2023 MCH (RBC) [Entitic mass] 27.9 pg 27.0-32.0 [facility] MCHC (RBC) [Mass/Vol] 30.6 g/dL 32-36 [facility] Platelets (Bld) [#/Vol] 208 10*3/uL 150-450 [facility] No Panel InformationOrdered By: Jacob Suazo on 03-26-2023 Estimated Creatinine Clearance Calc 70.51 ml/min [facility] Estimated GFR (MDRD) Amer 105 mL/min >60 [facility] Comment on above: GFR Calc Estimated GFR (MDRD) Non-Af Amer 87 mL/min >60 [facility] Comment on above: Non- GFR Calc No Panel InformationOrdered By: Martin Zaragoza on 03-26-2023 Troponin I High Sensitivity 22 pg/mL 3.0-78.0 [facility] Comment on above: Please Note: New Rebecca t Units and Gender Specific Reference Ranges. For more information see Policy Stat Procedure [place]erson High Sensitivity Troponin (TNIH) and attachments. Platelet mean volume Tera-Ec ker (Bld) [Entitic vol]Ordered By: Jacob Suazo on 03-26-2023 Platelet mean volume (Bld) [Entitic vol] 8.6 fL 6.2-12.0 [facility] RBC Auto (Bld) [#/Vol]Ordere d By: Jacob Suazo on 03-26-2023 RBC (Bld) [#/Vol] 4.01 10*6/uL 4.6-6.2 [facility] Serum or plasma calcium ry urement (mass/volume)Ordered By: Jacob Suazo on 03-26-2023 Calcium [Mass/Vol] 8.5 mg/dL 8.5-10.1 [facility] Serum or plasma creatinine m easurement (mass/volume)Ordered By: Jacob Suazo on 03-26-2023 Creatinine [Mass/Vol] 0.89 mg/dL 0.70-1.30 [facility] Comment on above: The validity of the calculated GFR & GFRAA in patients over 70 years has not been determined. Clinical correlation is essential. Serum or plasma urea nitroge n measurement (mass/volume)Ordered By: Jacob Suazo on 03-26-2023 Urea nitrogen [Mass/Vol] 19 mg/dL 7-18 [facility] Thin prep Papanicolaou smear with manual screeningOrdered By: Jacob Suazo on 03-26-2023 Thin prep Papanicolaou smear with manual screening 3 5-15 [facility] Absolute lymphocyte countOrd ered By: Randy Londono on 03-25-2023 Lymphocytes Auto (Unsp spec) [#/Vol] 0.57 10*3/uL 0.83-4.51 [facility] Activated partial thrombopla stin time (aPTT) in platelet poor plasma by coagulation aOrdered By: Randymaxim Londono on 03-25-2023 aPTT Coag (PPP) [Time] 27.1 s 24.1-36.2 [facility] Automated lymphocyte count a s percentage of total leukocytesOrdered By: Randymaxim Londono on 03-25-2023 Lymphocytes/100 WBC Auto (Unsp spec) 3.7 % 19-41 [facility] Basophil percentageOrdered B y: Randymaxim Londono on 03-25-2023 Lactate [Moles/Vol] 1.0 mmol/L 0.4-2.0 [facility] Lactate [Moles/Vol] 2.3 mmol/L 0.4-2.0 [facility] Comment on above: Critical Result(s) C denzel Ames at: 14:08:04 03/25/2023 by: CCrytzer. Results read back by same. Basophils/100 WBC (Bld) 0.2 % 0-1 [facility] Bilirubin [Mass/Vol] 0.50 mg/dL 0.20-1.00 [facility] Comment on above: For patients on eltr ombopag therapy, use of Dimension Nickerson TBIL is not recommended. Chloride [Moles/Vol] 106 mmol/L 98-107 [facility] Eosinophils/100 WBC (Bld) 0.1 % 0-5 [facility] Glucose [Mass/Vol] 125 mg/dL 74-106 [facility] Comment on above: Fasting Glucose resu lt from 100 to 125 mg/dL suggests IMPAIRED HOMEOSTASIS per A.D.A. criteria. Hemoglobin (Bld) [Mass/Vol] 13.7 g/dL 13.0-16.5 [facility] Monocytes/100 WBC (Bld) 3.2 % 0-10 [facility] Neutrophils (Bld) [#/Vol] 14.4 10*3/uL 2.0-7.7 [facility] Neutrophils/100 WBC (Bld) 92.4 % 47-70 [facility] Potassium [Moles/Vol] 4.5 mmol/L 3.5-5.1 [facility] Protein [Mass/Vol] 7.4 g/dL 6.4-8.2 [facility] Sodium [Moles/Vol] 139 mmol/L 136-145 [facility] WBC (Bld) [#/Vol] 15.6 10*3/uL 4.4-11.0 [facility] Determination of erythrocyte mean corpuscular volume (MCV)Ordered By: Randy Londono on 03-25-2023 MCV (RBC) [Entitic vol] 91.6 fL 80-94 [facility] Erythrocyte distribution wid th ratioOrdered By: Randy Londono on 03-25-2023 Erythrocyte distribution width (RBC) [Ratio] 15.3 % 11.6-14.6 [facility] Erythrocyte distribution wid th standard deviationOrdered By: Randy Londono on 03-25-2023 Erythrocyte distribution width (RBC) [Entitic vol] 51.6 fL 35.1-43.9 [facility] Hematocrit Auto (Bld) [Volum e fraction]Ordered By: Randy Londono on 03-25-2023 Hematocrit (Bld) [Volume fraction] 45.0 % 40-54 [facility] Immature granulocytes/100 WB C Auto (Bld)Ordered By: Randy Londono on 03-25-2023 Immature granulocytes/100 WBC (Bld) 0.400 % 0.0-0.9 [facility] Comment on above: IG% - Immature Granu locytes (promyelocytes, myelocytes and metamyelocytes) > 1% indicates that a LEFT SHIFT is Present. International normalized rat io (INR) calculationOrdered By: Randy Londono on 03-25-2023 INR Coag (PPP) [Relative time] 1.0 {INR} [facility] - Chemistry and C hemistry - challengeOrdered By: Randy Londono on 01-24-2024 Albumin/Globulin [Mass ratio] 0.8 {ratio} 0.9-2.4 [facility] ALP [Catalytic activity/Vol] 84 U/L 45-117 [facility] ALT [Catalytic activity/Vol] 20 U/L 16-61 [facility] CO2 [Moles/Vol] 27.0 mmol/L 21.0-32.0 [facility] Globulin (S) [Mass/Vol] 4.0 g/dL 2.2-4.2 [facility] Urea nitrogen/Creatinine [Mass ratio] 17.5 mg/mg 10-20 [facility] - CoagulationOrde red By: Randy Londono on 03-25-2023 PT Coag (PPP) [Time] 13.1 s 11.7-14.9 [facility] - Hematology and Cell countsOrdered By: Randy Londono on 03-25-2023 MCH (RBC) [Entitic mass] 27.9 pg 27.0-32.0 [facility] MCHC (RBC) [Mass/Vol] 30.4 g/dL 32-36 [facility] Nucleated RBC/100 WBC (Bld) [Ratio] 0 % 0-5 [facility] Platelets (Bld) [#/Vol] 309 10*3/uL 150-450 [facility] No Panel InformationOrdered By: Randy Londono on 03-25-2023 Estimated Creatinine Clearance Calc 60.92 ml/min [facility] Estimated GFR (MDRD) Amer 89 mL/min >60 [facility] Comment on above: GFR Calc Estimated GFR (MDRD) Non-Af Amer 74 mL/min >60 [facility] Comment on above: Non- GFR Calc Platelet mean volume Tera-Ec ker (Bld) [Entitic vol]Ordered By: Randy Londono on 03-25-2023 Platelet mean volume (Bld) [Entitic vol] 8.7 fL 6.2-12.0 [facility] RBC Auto (Bld) [#/Vol]Ordere d By: Randy Londono on 03-25-2023 RBC (Bld) [#/Vol] 4.91 10*6/uL 4.6-6.2 [facility] Serum or plasma calcium ry urement (mass/volume)Ordered By: Randy Londono on 03-25-2023 Calcium [Mass/Vol] 9.5 mg/dL 8.5-10.1 [facility] Serum or plasma creatinine m easurement (mass/volume)Ordered By: Randymaxim Londono on 03-25-2023 Creatinine [Mass/Vol] 1.03 mg/dL 0.70-1.30 [facility] Comment on above: The validity of the calculated GFR & GFRAA in patients over 70 years has not been determined. Clinical correlation is essential. Serum or plasma urea nitroge n measurement (mass/volume)Ordered By: Randymaxim Londono on 03-25-2023 Urea nitrogen [Mass/Vol] 18 mg/dL 7-18 [facility] Thin prep Papanicolaou smear with manual screeningOrdered By: Randymaxim Londono on 03-25-2023 Thin prep Papanicolaou smear with manual screening 3.4 g/dL 3.2-5.0 [facility] Thin prep Papanicolaou smear with manual screening 20 U/L 15-37 [facility] Thin prep Papanicolaou smear with manual screening 6 5-15 [facility] Basophil percentageOrdered B y: Brunorachel Catalan on 03-23-2023 Basophil percentage 0.22 ng/mL 0.0-4.0 [facility] Comment on above: This test was perfor med using the TPSA assay method for the[facility] chemistry system. Values obtained with differentassay methods cannot be used interchangably.When changing PSA assays in the course of monitoring apatient, additional sequential testing should be carriedout to confirm baseline values. Absolute lymphocyte countOrd ered By: Cristi Godienz on 11-24-2022 Lymphocytes Auto (Unsp spec) [#/Vol] 0.28 10*3/uL 0.83-4.51 [facility] Basophil percentageOrdered B y: Cristi Godinez on 11-24-2022 Basophils/100 WBC (Bld) 0.2 % 0-1 [facility] Chloride [Moles/Vol] 104 mmol/L 98-107 [facility] Eosinophils/100 WBC (Bld) 0.2 % 0-5 [facility] Glucose [Mass/Vol] 175 mg/dL 74-106 [facility] Comment on above: Fasting Glucose resu lt greater than or equal to 126 mg/dL suggests DIABETES MELLITUS per A.D.A. criteria. Neutrophils (Bld) [#/Vol] 11.4 10*3/uL 2.0-7.7 [facility] Neutrophils/100 WBC (Bld) 92.9 % 47-70 [facility] Potassium [Moles/Vol] 4.5 mmol/L 3.5-5.1 [facility] Sodium [Moles/Vol] 139 mmol/L 136-145 [facility] WBC (Bld) [#/Vol] 12.2 10*3/uL 4.4-11.0 [facility] Blood erythrocytes count (nu mber/volume)Ordered By: Cristi Godinez on 11-24-2022 RBC (Bld) [#/Vol] 4.48 10*6/uL 4.6-6.2 [facility] Blood hemoglobin measurement (mass/volume)Ordered By: Cristi Godinez on 11-24-2022 Hemoglobin (Bld) [Mass/Vol] 13.1 g/dL 13.0-16.5 [facility] Blood lymphocytes/100 leukoc ytesOrdered By: Cristi Godinez on 11-24-2022 Lymphocytes/100 WBC (Bld) 2.3 % 19-41 [facility] Blood manual differential co mment interpretation (narrative result)Ordered By: Cristi Godinez on 11-24-2022 Manual differential comment Max (Bld) [Interp] SEE COMMENT [facility] Comment on above: LYMPHOPENIA NOTED Blood monocytes/100 leukocyt esOrdered By: Cristi Godinez on 11-24-2022 Monocytes/100 WBC (Bld) 3.8 % 0-10 [facility] Blood platelet adequacy dete ction by light microscopyOrdered By: Cristi Godinez on 11-24-2022 Platelets LM Ql (Bld) ADEQUATE ADEQ [facility] Blood platelet mean volumeOr dered By: Cristi Godinez on 11-24-2022 Platelet mean volume (Bld) [Entitic vol] 9.3 fL 6.2-12.0 [facility] Determination of erythrocyte mean corpuscular volume (MCV)Ordered By: Cristi Godinez on 11-24-2022 MCV (RBC) [Entitic vol] 94.4 fL 80-94 [facility] Hematocrit Auto (Bld) [Volum e fraction]Ordered By: Cristi Godinez on 11-24-2022 Hematocrit (Bld) [Volume fraction] 42.3 % 40-54 [facility] - Chemistry and C hemistry - challengeOrdered By: Cristi Godinez on 11-24-2022 CO2 [Moles/Vol] 32.0 mmol/L 21.0-32.0 [facility] Urea nitrogen/Creatinine [Mass ratio] 14.3 mg/mg 10-20 [facility] - Hematology and Cell countsOrdered By: Cristi Godinez on 11-24-2022 Anisocytosis Ql (Bld) RARE [facility] Erythrocyte distribution width (RBC) [Entitic vol] 50.4 fL 35.1-43.9 [facility] Erythrocyte distribution width (RBC) [Ratio] 14.6 % 11.6-14.6 [facility] Immature granulocytes/100 WBC (Bld) 0.600 % 0.0-0.9 [facility] Comment on above: IG% - Immature Granu locytes (promyelocytes, myelocytes and metamyelocytes) > 1% indicates that a LEFT SHIFT is Present. MCH (RBC) [Entitic mass] 29.2 pg 27.0-32.0 [facility] Nucleated RBC/100 WBC (Bld) [Ratio] 0 % 0-5 [facility] [facility] MCHC Auto (RBC) [Mass/Vol]Or dered By: Cristi Godinez on 11-24-2022 MCHC (RBC) [Mass/Vol] 31.0 g/dL 32-36 [facility] Macrocytes detectionOrdered By: Cristi Godinez on 11-24-2022 Macrocytes Ql (Bld) RARE [facility] No Panel InformationOrdered By: Cristi Godinez on 11-24-2022 Estimated Creatinine Clearance Calc 52.73 ml/min [facility] Estimated GFR (MDRD) Amer 76 mL/min >60 [facility] Comment on above: GFR Calc Estimated GFR (MDRD) Non-Af Amer 63 mL/min >60 [facility] Comment on above: Non- GFR Calc Platelets bldOrdered By: Mary Godinez on 09-25-2023 Platelets (Bld) [#/Vol] 184 10*3/uL 150-450 [facility] Review by pathologistOrdered By: Cristi Godinez on 11-24-2022 Pathologist review Max (Unsp spec) [Interp] June xin [facility] Serum or plasma calcium ry urement (mass/volume)Ordered By: Cristi Godinez on 11-24-2022 Calcium [Mass/Vol] 8.5 mg/dL 8.5-10.1 [facility] Serum or plasma creatinine m easurement (mass/volume)Ordered By: Cristi Godinez on 11-24-2022 Creatinine [Mass/Vol] 1.19 mg/dL 0.70-1.30 [facility] Comment on above: The validity of the calculated GFR & GFRAA in patients over 70 years has not been determined. Clinical correlation is essential. Serum or plasma urea nitroge n measurement (mass/volume)Ordered By: Cristi Godinez on 11-24-2022 Urea nitrogen [Mass/Vol] 17 mg/dL 7-18 [facility] Thin prep Papanicolaou smear with manual screeningOrdered By: Cristi Godinez on 11-24-2022 Thin prep Papanicolaou smear with manual screening 3 5-15 [facility] No Panel Informationon 11-18 [facility] OXIMETRY WITH AMBULATIONon 0 11-07-2022 [facility] No Panel Informationon 10-13 DLCO (ml/min/mmHg) 9.53 ml/min/mmHg [facility] DLCO/VA (ml/min/mmHg/L) 2.03 ml/min/mmHg/L [facility] YJR36-36% POST (L/S) 0.41 L/S [facility] HRI31-87% PRE (L/S) 0.45 L/S [facility] FEV1 PRE (L) 1.23 L [facility] FEV1/FVC POST (%) 37 % [facility] FEV1/FVC PRE (%) 37 % [facility] FEV1_POST (L) 1.23 L [facility] FVC POST (L) 3.34 L [facility] FVC PRE (L) 3.28 L [facility] PEF POST (L/S) 3.28 L/S [facility] PEF PRE (L/S) 3.03 L/S [facility] VA (L) 4.68 L [facility] XR FOOT GENERAL 3V AP/LAT/OB L RIGHTon 08-26-2022 [facility] PVR ANK PRESS MARTITA VAS LABon 06-18-2022 [facility] US LEG ARTERIAL PERIPH UNL V LABon 06-18-2022 [facility] XR FOOT GENERAL 3V AP/LAT/OB L RIGHTon 05-27-2022 [facility] Basic metabolic 2000 panelon 05-16-2022 Anion gap [Moles/Vol] 7 mmol/L Low 9-18 [facility] Comment on above: Order Comment: Speci men Type: BLOOD SPECIMEN Ordering Facility: [facility] Address: [address] [address] Performed By: #### 2 4321-2, 2776-03, #### [facility] CLIA [id number] [address] [place] [address] [place] Calcium [Mass/Vol] 8.6 mg/dL Normal 8.5-10.2 [facility] Comment on above: Order Comment: Speci men Type: BLOOD SPECIMEN Ordering Facility: [facility] Address: [address] [address] Performed By: #### 2 4321-2, 2776-03, #### [facility] CLIA [id number] [address] [place] [address] [place] Chloride [Moles/Vol] 105 mmol/L Normal 97-105 [facility] Comment on above: Order Comment: Speci men Type: BLOOD SPECIMEN Ordering Facility: [facility] Address: [address] Performed By: #### 2 4321-2, 2776-03, #### [facility] CLIA [id number] [address] [place] [address] [place] CO2 [Moles/Vol] 28 mmol/L Normal 22-30 [facility] Comment on above: Order Comment: Speci men Type: BLOOD SPECIMEN Ordering Facility: [facility] Address: [address] Performed By: #### 2 4321-2, 2777-1, #### [facility] CLIA [id number] [address] [address] [id number] [place] Creatinine [Mass/Vol] 0.73 mg/dL Normal 0.73-1.22 [facility] Comment on above: Order Comment: Fab doran Type: BLOOD SPECIMEN Ordering Facility: [facility] Address: [address] [id number] Performed By: #### 2 4321-2, 2777-, #### [facility] CLIA [id number] [address] [place] [address] [place] ESTIMATED GLOMERULAR FILTRATION RATE 93 mL/min/1.73m??? Normal >=60 [facility] Comment on above: Order Comment: Sun espinoza Type: BLOOD SPECIMEN Ordering Facility: [facility] Address: [address] [place], [place] [address] Result Comment: Karey mated Glomerular Filtration Rate [...] Performed By: #### 2 4321-2, 2777-, #### [facility] CLIA [id number] [address] [address] [place] [id number] [place] Glucose [Mass/Vol] 102 mg/dL High 74-99 [facility] Comment on above: Order Comment: Fab doran Type: BLOOD SPECIMEN Ordering Facility: [facility] Address: [address] Result Comment: The [place] [employer] (ADA) provides guidance for cutoff [...] Standards of Medical Care in Diabetes 2016, [place] [employer]. Diabetes Care. 2016.39(Suppl 1). Performed By: #### 2 4321-2, 2776-, #### [facility] CLIA [id number] [place] [address] [place] Potassium [Moles/Vol] 3.7 mmol/L Normal 3.7-5.1 [facility] Comment on above: Order Comment: Fab doran Type: BLOOD SPECIMEN Ordering Facility: [facility] Address: [address] [place] [address] Performed By: #### 2 4321-2, 2776-03, #### [facility] CLIA [id number] [address] [place] [address] [place] Sodium [Moles/Vol] 140 mmol/L Normal 136-144 [facility] Comment on above: Order Comment: Fab doran Type: BLOOD SPECIMEN Ordering Facility: [facility] Address: [address] [place] [address] Performed By: #### 2 4321-2, 2776-03, #### [facility] CLIA [id number] [address] [place] [address] [place] Urea nitrogen [Mass/Vol] 15 mg/dL Normal 9-24 [facility] Comment on above: Order Comment: Fab doran Type: BLOOD SPECIMEN Ordering Facility: [facility] Address: [address] [place] [address] Performed By: #### 2 4321-2, 2776-03, #### [facility] CLIA [id number] [address] [place] [address] [place] CBC panel Auto (Bld)on 05-16 Erythrocyte distribution width (RBC) [Ratio] 13.3 % Normal 11.5-15.0 [facility] Comment on above: Order Comment: Speci men Type: BLOOD SPECIMEN Ordering Facility: [facility] Address: [address] [address] Performed By: #### 5 8410-2 #### [facility] CLIA [id number] [address] [place] [address] Hematocrit (Bld) [Volume fraction] 32.7 % Low 39.0-51.0 [facility] Comment on above: Order Comment: Speci men Type: BLOOD SPECIMEN Ordering Facility: [facility] Address: [address] [address] Performed By: #### 5 8410-2 #### [facility] CLIA [id number] [address] [place] [address] Hemoglobin (Bld) [Mass/Vol] 10.8 g/dL Low 13.0-17.0 [facility] Comment on above: Order Comment: Speci men Type: BLOOD SPECIMEN Ordering Facility: [facility] Address: [address] [place] [address] Performed By: #### 5 8410-2 #### [facility] CLIA [id number] [address] [place] [address] MCH (RBC) [Entitic mass] 31.1 pg Normal 26.0-34.0 [facility] Comment on above: Order Comment: Speci men Type: BLOOD SPECIMEN Ordering Facility: [facility] Address: [address] [address] Performed By: #### 5 8410-2 #### [facility] CLIA [id number] [address] [place] [address] [place] MCHC (RBC) [Mass/Vol] 33.0 g/dL Normal 30.5-36.0 [facility] Comment on above: Order Comment: Speci men Type: BLOOD SPECIMEN Ordering Facility: [facility] Address: [address] [place] [address] Performed By: #### 5 8410-2 #### [facility] CLIA [id number] [address] [place] [address] [place] MCV (RBC) [Entitic vol] 94.2 fL Normal 80.0-100.0 [facility] Comment on above: Order Comment: Speci men Type: BLOOD SPECIMEN Ordering Facility: [facility] Address: [address] [address] Performed By: #### 5 8410-2 #### [facility] CLIA [id number] [place] [address] [place] Nucleated RBC (Bld) [#/Vol] 10*3/uL Normal <0.01 [facility] Comment on above: Order Comment: Speci men Type: BLOOD SPECIMEN Ordering Facility: [facility] Address: [address] [address] Performed By: #### 5 8410-2 #### [facility] CLIA [id number] [address] [place] [address] [place] Platelet mean volume (Bld) [Entitic vol] 8.9 fL Low 9.0-12.7 [facility] Comment on above: Order Comment: Speci men Type: BLOOD SPECIMEN Ordering Facility: [facility] Address: [address] [address] Performed By: #### 5 8410-2 #### [facility] CLIA [id number] [address] [place] [address] [place] Platelets (Bld) [#/Vol] 156 10*3/uL Normal 150-400 [facility] Comment on above: Order Comment: Speci men Type: BLOOD SPECIMEN Ordering Facility: [facility] Address: [address] [address] Performed By: #### 5 8410-2 #### [facility] CLIA [id number] [address] [place] [address] [place] RBC (Bld) [#/Vol] 3.47 10*6/uL Low 4.20-6.00 [facility] Comment on above: Order Comment: Speci men Type: BLOOD SPECIMEN Ordering Facility: [facility] Address: [address] [address] Performed By: #### 5 8410-2 #### [facility] CLIA [id number] [address] [place] [address] [place] WBC (Bld) [#/Vol] 6.59 10*3/uL Normal 3.70-11.00 [facility] Comment on above: Order Comment: Speci men Type: BLOOD SPECIMEN Ordering Facility: [facility] Address: [address] [place] [address] Performed By: #### 5 8410-2 #### [facility] CLIA [id number] [place] [address] Magnesium SerPl-mCncon 05-16 Magnesium [Mass/Vol] 2.1 mg/dL Normal 1.7-2.3 [facility] Comment on above: Order Comment: Speci men Type: BLOOD SPECIMEN Ordering Facility: [facility] Address: [address] [place] [address] Performed By: #### 2 4321-2, 2776-03, #### [facility] CLIA [id number] [address] [place] [address] OF [place] NURSING PROGon 05-16-2022 NURSING PROG HNO ID: [id number] Author: Estrella Mckeon RN Service: Nursing Author Type: Registered Nurse Type: Nursing Progress Note Filed: 05/16/2022 6:27 AM Note Text: IFC dc'd, catheter intact, no issues, pt tolerated well. Pt educated to notify RN if unable to void Normal [facility] Phosphate SerPl-mCncon 05-16 Phosphate [Mass/Vol] 3.0 mg/dL Normal 2.7-4.8 [facility] Comment on above: Order Comment: Speci men Type: BLOOD SPECIMEN Ordering Facility: [facility] Address: [address] [place] [address] Performed By: #### 2 4321-2, 2777-, #### [facility] CLIA [id number] [address] [id number] [facility] [place] THERAPY NTon 05-16-2022 THERAPY NT HNO ID: [id number] Author: Desiree Mosqueda, OTR/L Service: Occupational Therapy Author Type: Occupational Therapist Type: Therapy (PT/OT/Speech/Resp) Filed: 05/16/2022 11:53 AM Note Text: Occupational Therapy Evaluation SERVICE DATE: 05/16/2022 SERVICE TIME: 920 to 951 ROOM: [address] [address] Recommended Discharge Disposition: Home OT Anticipated Discharge [...] signs-other, Reduced mobility-other Interventions Provided: Evaluation, Self Fci Management ( (more content not included)... Normal [facility] Basic metabolic 2000 panelon 05-15-2022 Anion gap [Moles/Vol] 6 mmol/L Low 9-18 [facility] Comment on above: Order Comment: Speci men Type: BLOOD SPECIMENOrdering Facility: [facility] Address: [address] Performed By: #### 1 9123-9, 2777, 83049-7 ####[facility] [id number] [place] [id number] [place] Calcium [Mass/Vol] 8.5 mg/dL Normal 8.5-10.2 [facility] Comment on above: Order Comment: Speci men Type: BLOOD SPECIMENOrdering Facility: [facility] Address: [address] Performed By: #### 1 9123-9, 27708-30, 90685-8 ####[facility] [id number] [place] [address] [place] Chloride [Moles/Vol] 105 mmol/L Normal 97-105 [facility] Comment on above: Order Comment: Speci men Type: BLOOD SPECIMENOrdering Facility: [facility] Address: [address] [facility] [address] [place] [address] Performed By: #### 1 9123-9, 27708-30, ####[facility]ORYCLIA [id number] [place] [id number] [place] CO2 [Moles/Vol] 30 mmol/L Normal 22-30 [facility] Comment on above: Order Comment: Speci men Type: BLOOD SPECIMENOrdering Facility: [facility] Address: [address] Performed By: #### 1 9123-9, 27708-30, ####[facility] [id number] [place] [address] [place] Creatinine [Mass/Vol] 0.73 mg/dL Normal 0.73-1.22 [facility] Comment on above: Order Comment: Speci men Type: BLOOD SPECIMENOrdering Facility: [facility] Address: [address] Performed By: #### 1 9123-9, 2777, 88313-8 ####[facility]ORYCLIA [id number] [place] [id number] [place] ESTIMATED GLOMERULAR FILTRATION RATE 93 mL/min/1.73m??? Normal >=60 [facility] Comment on above: Order Comment: Fab doran Type: BLOOD SPECIMENOrdering Facility: [facility] Address: [address] [address] Result Comment: Karey mated Glomerular Filtration Rate [...] GFR. Performed By: #### 1 9123-9, 2777-1, 05799-5 ####[facility] [id number] [place] [id number] [place] Glucose [Mass/Vol] 111 mg/dL High 74-99 [facility] Comment on above: Order Comment: Fab doran Type: BLOOD SPECIMENOrdering Facility: [facility] Address: [address] [place] [address] Result Comment: The [place] [employer] (ADA) provides guidance for cutoff [...] Standards of Medical Care in Diabetes 2016, [place] [employer]. Diabetes Care. 2016.39(Suppl 1). Performed By: #### 1 9123-9, 2777-1, 47976-2 ####[facility] [id number] [place] [id number] [place] Potassium [Moles/Vol] 3.9 mmol/L Normal 3.7-5.1 [facility] Comment on above: Order Comment: Speci men Type: BLOOD SPECIMENOrdering Facility: [facility] Address: [address] [address] Performed By: #### 1 9123-9, 27708-30, 49335-2 ####[facility] [id number] [place] [id number] [place] Sodium [Moles/Vol] 141 mmol/L Normal 136-144 [facility] Comment on above: Order Comment: Speci men Type: BLOOD SPECIMENOrdering Facility: [facility] Address: [address] [address] Performed By: #### 1 9123-9, 27708-30, ####[facility]ORYCLIA [id number] [address] STATES [place] Urea nitrogen [Mass/Vol] 13 mg/dL Normal 9-24 [facility] Comment on above: Order Comment: Speci men Type: BLOOD SPECIMENOrdering Facility: [facility] Address: [address] [address] Performed By: #### 1 9123-9, 27708-30, 59912-8 ####[facility]ORYCLIA [id number] [address] OF [place] CBC panel Auto (Bld)on 05-15 Erythrocyte distribution width (RBC) [Ratio] 13.3 % Normal 11.5-15.0 [facility] Comment on above: Order Comment: Speci men Type: BLOOD SPECIMEN Ordering Facility: [facility] Address: [address] [address] Performed By: #### 5 8410-2 #### [facility] CLIA [id number] [address] STATES [place] Hematocrit (Bld) [Volume fraction] 34.2 % Low 39.0-51.0 [facility] Comment on above: Order Comment: Speci men Type: BLOOD SPECIMEN Ordering Facility: [facility] Address: [address] [address] Performed By: #### 5 8410-2 #### [facility] CLIA [id number] [address] [place] [address] STATES [place] [facility] Hemoglobin (Bld) [Mass/Vol] 11.0 g/dL Low 13.0-17.0 [facility] Comment on above: Order Comment: Speci men Type: BLOOD SPECIMEN Ordering Facility: [facility] Address: [address] [place] [address] Performed By: #### 5 8410-2 #### [facility] CLIA [id number] [address] [place] [address] STATES OF [facility] MCH (RBC) [Entitic mass] 30.6 pg Normal 26.0-34.0 [facility] Comment on above: Order Comment: Speci men Type: BLOOD SPECIMEN Ordering Facility: [facility] Address: [address] [place] [address] Performed By: #### 5 8410-2 #### [facility] CLIA [id number] [address] [place] [address] MCHC (RBC) [Mass/Vol] 32.2 g/dL Normal 30.5-36.0 [facility] Comment on above: Order Comment: Speci men Type: BLOOD SPECIMEN Ordering Facility: [facility] Address: [address] [place] [address] Performed By: #### 5 8410-2 #### [facility] CLIA [id number] [address] [place] [address] [place] MCV (RBC) [Entitic vol] 95.3 fL Normal 80.0-100.0 [facility] Comment on above: Order Comment: Speci men Type: BLOOD SPECIMEN Ordering Facility[facility] Address: [address] [place] [address] Performed By: #### 5 8410-2 #### [facility] CLIA [id number] [address] [place] [address] Nucleated RBC (Bld) [#/Vol] 10*3/uL Normal <0.01 [facility] Comment on above: Order Comment: Speci men Type: BLOOD SPECIMEN Ordering Facility: [facility] Address: [address] [address] Performed By: #### 5 8410-2 #### [facility] CLIA [id number] [address] [place] [address] [place] Platelet mean volume (Bld) [Entitic vol] 8.9 fL Low 9.0-12.7 [facility] Comment on above: Order Comment: Speci men Type: BLOOD SPECIMEN Ordering Facility: [facility] Address: [address] [place] [address] Performed By: #### 5 8410-2 #### [facility] CLIA [id number] [address] [place] [address] [place] Platelets (Bld) [#/Vol] 144 10*3/uL Low 150-400 [facility] Comment on above: Order Comment: Speci men Type: BLOOD SPECIMEN Ordering Facility[facility] Address: [address] [place] [address] Performed By: #### 5 8410-2 #### [facility] CLIA [id number] [address] [place] [address] [place] RBC (Bld) [#/Vol] 3.59 10*6/uL Low 4.20-6.00 [facility] Comment on above: Order Comment: Speci men Type: BLOOD SPECIMEN Ordering Facility: [facility] Address: [address] [address] Performed By: #### 5 8410-2 #### [facility] CLIA [id number] [address] [place] [address] [place] WBC (Bld) [#/Vol] 6.71 10*3/uL Normal 3.70-11.00 [facility] Comment on above: Order Comment: Speci men Type: BLOOD SPECIMEN Order[facility] Facility[facility] Address: [address] [place] [address] Performed By: #### 5 8410-2 #### [facility] CLIA [id number] [address] [place] [address] [place] Magnesium SerPl-mCncon 05-15 Magnesium [Mass/Vol] 2.0 mg/dL Normal 1.7-2.3 [facility] Comment on above: Order Comment: Speci men Type: BLOOD SPECIMENOrdering Facility: [facility] Address: [address] [place] [address] Performed By: #### 1 9123-9, 2777-1, 50112-1 ####[facility] [id number] [place] [id number] [facility] Phosphate SerPl-mCncon 05-15 Phosphate [Mass/Vol] 3.1 mg/dL Normal 2.7-4.8 [facility] Comment on above: Order Comment: Speci men Type: BLOOD SPECIMENOrdering Facility: [facility] Address: [address] [place] [address] Performed By: #### 1 9123-9, 2777-1, 94088-1 ####[facility] [id number] [place] [id number] [facility] THERAPY NTon 05-15-2022 THERAPY NT HNO ID: [id number] Author: Keily Ramsey OT/Justin Service: Occupational Therapy Author Type: Occupational Therapist Type: Therapy (PT/OT/Speech/Resp) Filed: 05/15/2022 2:24 PM Note Text: OCCUPATIONAL THERAPY MISSED VISIT SERVICE DATE: 05/15/2022 SERVICE TIME: 1420 to 1420 ROOM: [place] [address] Patient not seen due to Declined. SIGNATURE: MIKE Diaz PATIENT NAME: Oswaldo Corley DATE: May 15, 2022 TIME: 2:24 PM [facility] THERAPY NT HNO ID: [id number] Author: Madhu Smith, PT Service: Physical Therapy Author Type: Physical Therapist Type: Therapy (PT/OT/Speech/Resp) Filed: 05/15/2022 10:51 AM Note Text: Physical Therapy Treatment SERVICE DATE: 05/15/2022 SERVICE TIME: 0830 to 0858 ROOM: [place] [address] Recommended Discharge Disposition: Home PT Anticipated Discharge [...] gait and mobility-other Interventions Provided: Gait Training (26671), Therapeutic Activity (64238) Therapeutic Activity (21021) Treatment Minutes: 10 $ Therapeutic Activity (73552) Billed Units: 1 unit Gait Training (95921) Treatment Minutes: 13 $ Gait Training (92237) Billed Units: 1 unit Training AND education provided in: Assistive device use, Benefits of in-hospital mobility, Disease specific education, Equipment, Gait patter (more content not included)... [facility] ALLIED HEALTHon 05-14-2022 ALLIED HEALTH HNO ID: [id number] Author: Chaplain Jennifer Service: Spiritual Care Author Type: Mangle Catcher Type: Allied Health Filed: 05/14/2022 2:36 PM Note Text: SPIRITUALCARE Spiritual Care Visit- Brief Note Name: Oswaldo Corley Date: May 14, 2022 Notes: While engaging in spiritual care rounds on the SICU unit, I made a visit with the patient and I provided spiritual presence and bucolic support through empathetic care and through prayers at the bedside. Mangle Catcher Signature: Chaplain Jennifer To contact the Spiritual Care Department: Please call [phone] or Page the On-Call Mangle Catcher at pager [phone]. Thank you for the opportunity to be of service This is an electronically created document. IF PRINTED, PLEASE DO NOT REMOVE FROM THE CHART OR MODIFY PRINTED COPY. Normal [facility] Basic metabolic 2000 panelon 05-14-2022 Anion gap [Moles/Vol] 8 mmol/L Low 9-18 [facility] Comment on above: Order Comment: Speci men Type: BLOOD SPECIMENOrdering Facility: [facility] Address: [address] [address] Performed By: #### 2 4321-2, , 2776-03 ####[facility]IA [id number] [place] [address] [place] Calcium [Mass/Vol] 8.7 mg/dL Normal 8.5-10.2 [facility] Comment on above: Order Comment: Speci men Type: BLOOD SPECIMENOrdering Facility: [facility] Address: [address] [place] [address] Performed By: #### 2 4321-2, , 2776-03 ####[facility]IA [id number] [place] [id number] [place] Chloride [Moles/Vol] 105 mmol/L Normal 97-105 [facility] Comment on above: Order Comment: Speci men Type: BLOOD SPECIMENOrdering Facility: [facility] Address: [address] [place] [id number] Performed By: #### 2 4321-2, , 2776-03 ####[facility]ORYCLIA [id number] [place] [address] [place] CO2 [Moles/Vol] 28 mmol/L Normal 22-30 [facility] Comment on above: Order Comment: Speci men Type: BLOOD SPECIMENOrdering Facility: [facility] Address: [address] [place] [address] Performed By: #### 2 4321-2, 45865-1, 2776-03 ####[facility]ORATORYCLIA [id number] [place] [id number] [place] Creatinine [Mass/Vol] 0.82 mg/dL Normal 0.73-1.22 [facility] Comment on above: Order Comment: [place] men Type: BLOOD SPECIMENOrdering Facility: [facility] Address: [address] [place] [id number] Performed By: #### 2 4321-2, , 2776-03 ####[facility] LABORATORYCLIA [id number] [place] [id number] [place] ESTIMATED GLOMERULAR FILTRATION RATE 89 mL/min/1.73m??? Normal >=60 [facility] Comment on above: Order Comment: Fab doran Type: BLOOD SPECIMENOrdering Facility: [facility] Address: [address] Result Comment: Karey mated Glomerular Filtration Rate [...] actual GFR. Performed By: #### 2 4321-2, 90742-6, 2776-03 ####[facility] LABORATORYCLIA [id number] [place] [id number] [place] Glucose [Mass/Vol] 112 mg/dL High 74-99 [facility] Comment on above: Order Comment: Speci men Type: BLOOD SPECIMENOrdering Facility: [facility] Address: [address] [place] [id number] Result Comment: The [place] [employer] (ADA) provides guidance for cutoff [...] Standards of Medical Care in Diabetes 2016, [place] [employer]. Diabetes Care. 2016.39(Suppl 1). Performed By: #### 2 4321-2, , 2776-03 ####[facility] LABORATORYCLIA [id number] [place] [id number] [place] Potassium [Moles/Vol] 4.1 mmol/L Normal 3.7-5.1 [facility] Comment on above: Order Comment: Fab doran Type: BLOOD SPECIMENOrdering Facility: [facility] Address: [address] [place] [address] Performed By: #### 2 432-2, , 2776-03 ####[facility]ORATORYCLIA [id number] [place] [address] [place] Sodium [Moles/Vol] 141 mmol/L Normal 136-144 [facility] Comment on above: Order Comment: Fab doran Type: BLOOD SPECIMENOrdering Facility: [facility] Address: [address] [place] [address] Performed By: #### 2 4321-2, , 2776-03 ####[facility] LABORATORYCLIA [id number] [place] [id number] [place] Urea nitrogen [Mass/Vol] 14 mg/dL Normal 9-24 [facility] Comment on above: Order Comment: Fab doran Type: BLOOD SPECIMENOrdering Facility: [facility] Address: [address] [place] [place] [address] Performed By: #### 2 432-2, , 2776-03 ####[facility] LABORATORYCLIA [id number] [place] [id number] [place] CBC panel Auto (Bld)on 05-14 Erythrocyte distribution width (RBC) [Ratio] 13.8 % Normal 11.5-15.0 [facility] Comment on above: Order Comment: Speci men Type: BLOOD SPECIMENOrdering Facility: [facility] Address: [address] [place] [place] [address] Performed By: #### 5 8410-2 ####[facility] LABORATORYCLIA [id number] [address] Hematocrit (Bld) [Volume fraction] 35.8 % Low 39.0-51.0 [facility] Comment on above: Order Comment: Speci men Type: BLOOD SPECIMENOrdering Facility: [facility] Address: [address] [place] [address] Performed By: #### 5 8410-2 ####[facility] LABORATORYCLIA [id number] [address] [place] Hemoglobin (Bld) [Mass/Vol] 11.5 g/dL Low 13.0-17.0 [facility] Comment on above: Order Comment: Speci men Type: BLOOD SPECIMENOrdering Facility: [facility] Address: [address] [place] [place] [address] Performed By: #### 5 8410-2 ####[facility] LABORATORYCLIA [id number] [address] [place] MCH (RBC) [Entitic mass] 30.7 pg Normal 26.0-34.0 [facility] Comment on above: Order Comment: Speci men Type: BLOOD SPECIMENOrdering Facility: [facility] Address: [address] [place] [address] Performed By: #### 5 8410-2 ####[facility] LABORATORYCLIA [id number] [address] [place] MCHC (RBC) [Mass/Vol] 32.1 g/dL Normal 30.5-36.0 [facility] Comment on above: Order Comment: Speci men Type: BLOOD SPECIMENOrdering Facility: [facility] Address: [address] [place] [address] Performed By: #### 5 8410-2 ####[facility] LABORATORYCLIA [id number] [place] [id number] [place] MCV (RBC) [Entitic vol] 95.5 fL Normal 80.0-100.0 [facility] Comment on above: Order Comment: Speci men Type: BLOOD SPECIMENOrdering Facility: [facility] Address: [address] [place] [address] Performed By: #### 5 8410-2 ####[facility] LABORATORYCLIA [id number] [address] [place] Nucleated RBC (Bld) [#/Vol] 10*3/uL Normal <0.01 [facility] Comment on above: Order Comment: Speci men Type: BLOOD SPECIMENOrdering Facility: [facility] Address: [address] [place] [address] Performed By: #### 5 8410-2 ####[facility] LABORATORYCLIA [id number] [address] [place] Platelet mean volume (Bld) [Entitic vol] 8.5 fL Low 9.0-12.7 [facility] Comment on above: Order Comment: Speci men Type: BLOOD SPECIMENOrdering Facility: [facility] Address: [address] [place] [address] Performed By: #### 5 8410-2 ####[facility] LABORATORYCLIA [id number] [place] [address] [place] Platelets (Bld) [#/Vol] 153 10*3/uL Normal 150-400 [facility] Comment on above: Order Comment: Speci men Type: BLOOD SPECIMENOrdering Facility: [facility] Address: [address] [place] [place] [address] Performed By: #### 5 8410-2 ####[facility] LABORATORYCLIA [id number] [place] [address] [place] RBC (Bld) [#/Vol] 3.75 10*6/uL Low 4.20-6.00 [facility] Comment on above: Order Comment: Speci men Type: BLOOD SPECIMENOrdering Facility: [facility] Address: [address] [place] [address] Performed By: #### 5 8410-2 ####[facility] LABORATORYCLIA [id number] [place] [address] [place] [facility] WBC (Bld) [#/Vol] 7.55 10*3/uL Normal 3.70-11.00 [facility] Comment on above: Order Comment: Speci men Type: BLOOD SPECIMENOrdering Facility: [facility] Address: [place] [address] Performed By: #### 5 8410-2 ####[facility] LABORATORYCLIA [id number] [place] [address] [facility] CONSULTon 05-14-2022 CONSULT HNO ID: [id number] Author: Manju Mendoza RN Service: Wound/Ostomy Author Type: Registered Nurse Type: Consults Filed: 05/14/2022 3:21 PM Note Text: WOUND CARE SERVICE CONSULT NOTE SERVICE DATE: 05/14/2022 SERVICE TIME: 3:08 PM CHIEF COMPLAINT: Presented to [facility] for elective vascular procedure. Subjective Patient [...] with the admitting diagnosis of Atherosclerosis of [place] artery of right lower extremity with rest [...] pain CAD (coronary artery disease) s/p CABG 2000, PCI w/ stents COPD (chronic obstructive pulmonary disease) ([facility]) Diabetic ulcer of right foot (HCC) 04/30/2022 [...] Changed Dres (more content not included)... Normal [facility] Magnesium SerPl-mCncon 05-14 Magnesium [Mass/Vol] 2.0 mg/dL Normal 1.7-2.3 [facility] Comment on above: Order Comment: Speci men Type: BLOOD SPECIMENOrdering Facility: [facility] Address: [address] [place] [address] Performed By: #### 2 4321-2, 73471-4, 2777-1 ####[facility]USJANETTE LABORATORYCLIA [id number] [address] [place] NURSING PROGon 05-14-2022 NURSING PROG HNO ID: [id number] Author: Ann Setven RN Service: ? Author Type: Registered Nurse Type: Nursing Progress Note Filed: 05/14/2022 7:38 PM Note Text: Transfer Note: Patient transferred into room/unit [facility] in stable condition. Actions taken: Patient belongings with patient. Vital signs taken. at bedside. Pt in 2L nasal canula. Suazo catheter in place draining yellow urine. Normal [facility] Phosphate SerPl-ncon 05-14 Phosphate [Mass/Vol] 3.7 mg/dL Normal 2.7-4.8 [facility] Comment on above: Order Comment: Speci men Type: BLOOD SPECIMENOrdering Facility: [facility] Address: [address] [place] [address] Performed By: #### 2 4321-2, 55005-9, 2777-1 ####[facility]ORATORYCLIA [id number] [place] [id number] [facility] THERAPY NTon 05-14-2022 THERAPY NT HNO ID: [id number] Author: Madhu Smith, PT Service: Physical Therapy Author Type: Physical Therapist Type: Therapy (PT/OT/Speech/Resp) Filed: 05/14/2022 7:36 PM Note Text: Physical Therapy Evaluation SERVICE DATE: 05/14/2022 SERVICE TIME: 1210 to 1240 ROOM: [place] [address] Recommended Discharge Disposition: Home PT Anticipated Discharge [...] able to maintain balance while turning head/trunk -HLM: 6: Walk 10 steps or more Learning/Educational [...] and mobility-other Interventions Provided: Evaluation, Gait Training (57929) $ Evaluation-Low (26973) Billed Units: 1 unit Gait Training (61916) Treatment Minutes: 10 $ Gait Training (47964) Billed Units: 1 unit Training AND education [...] lines, tu (more content not included)... 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) 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, with fat layer 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) (Atherosclerosis of [place] artery of right lower extremity with rest [...] May 13, 2022 TIME: 6:14 PM CSN: [id number] [facility] ANES PRE-OPon 05-13-2022 ANES PRE-OP HNO ID: [id number] Author: Gabriela Hurst MD Service: Anesthesiology Author Type: Anesthesiologist Type: Anesthesia Preprocedure Evaluation Filed: 05/13/2022 10:05 AM Note Text: ANESTHESIOLOGY DAY OF SURGERY NOTE : 1940 Procedure Information Date/Time: 05/13/22 1000 Procedure: ENDARTERECTOMY FEMORAL WITH ANGIOPLASTY (Right) - vehicle modification technician needed Location: [facility] / OR Surgeons: [...] rupture (HCC) (+) Coronary artery 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 bishop [place] heart without angina pectoris (+) Essential hypertension [...] and consent discussed: yes. Patient / Responsible Constitution Party agrees to proceed: yes Patient / Surrogate [...] ago. Vitals Value Taken Time BP 147/77 05/13/22 0825 Pulse 93 05/13/22 0825 Resp 16 05/13/22 0825 Temp 36.5 ?C (97.7 ?F) 05/13/22 0825 SpO2 100 % 05/13/22 0825 Facility-Administered Medications as of 05/13/2022 Medication Dose [...] May 13, 2022 TIME: 10:04 AM CSN: [id number] [facility] BRIEF OP NOTon 05-13-2022 BRIEF OP NOT HNO ID: [id number] Author: Marsha Blanca MD Service: Vascular Surgery Author Type: Resident Type: Brief Op Note Filed: 05/13/2022 6:04 PM Note Text: GENERAL SURGERY BRIEF OP NOTE LOG ID: [id number] Surgery/Procedure Date: 05/13/2022 Incision/Procedure Start Time: 12:19 PM Incision Close/Procedure End Time: 5:16 PM Surgeon(s) and Cold Rolling Machine Setter(s): Surgeon(s) and Role: Panel 1: * Alex Rivas MD - Primary * Marsha Blanca MD - Resident - Assisting Panel 2: * Lorne Hutchinson MD - Primary No Additional Staff Procedure(s): RIGHT femoral cutdown RIGHT ASSISTANT CHIEF NURSING OFFICER/proximal SFA endarterectomy + patch angioplasty Selective right lower extremity angiogram RIGHT EIA/ASSISTANT CHIEF NURSING OFFICER stent placement and balloon angioplasty Anesthesia: General [...] Implant Name Type Inv. Item Serial No. Maintenance Machine Repairer Lot No. LRB No. Used Action FABRIC HEMASHIELD THK.76MM COLLAGEN 6X2IN CARDIOVASCULAR 2 [employer] KNITTED - [id number] Graft FABRIC HEMASHIELD THK.76MM COLLAGEN 6X2IN CARDIOVASCULAR 2 VELOUR KNITTED [id number] Outright [facility] [id number] Right 1 Implanted STENT ABSOLUTE PRO 10MM NITINOL 60MM 135CM BILIARY SELF EXPANDABLE - [id number] Vascular Stents STENT ABSOLUTE PRO 10MM NITINOL 60MM 135CM BILIARY SELF EXPANDABLE GROSS VASCULAR [id number] Right 1 Implanted STENT ABSOLUTE PRO 10MM NITINOL 60MM 135CM BILIARY SELF EXPANDABLE - [id number] Vascular Stents STENT ABSOLUTE PRO 10MM NITINOL 60MM 135CM BILIARY SELF EXPANDABLE GROSS VASCULAR [id number] Right 1 Implanted Wound Classification: Class 1, operative wound clean, non-traumatic, with no inflammation encountered, no break in technique, gastrointestinal and genitor-urinary tracts not entered Complications: None Pulses: RIGHT - PT biphasic/DP biphasic; LEFT - PT biphasic/DP biphasic Pre-Op/Pre-Procedure Diagnosis: Pre-Op Diagnosis Codes: * 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) [I70.221] * 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, with fat layer 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) [E13.621, L97.412] Post-Op/Post-Procedure Diagnosis: Same SIGNATURE: Marsha Blanca MD PATIENT NAME: Oswaldo Corley DATE: May 13, 2022 TIME: 5:43 PM PAGER/CONTACT #: [phone] Normal [facility] Basic metabolic 2000 panelon 05-13-2022 Anion gap [Moles/Vol] 8 mmol/L Low 9-18 [facility] Comment on above: Order Comment: Speci men Type: BLOOD SPECIMEN [facility] Address: [address] [place] [address] Performed By: #### 2 4321-2, 2776-03, #### [facility] CLIA [id number] [place] [address] [place] Calcium [Mass/Vol] 8.3 mg/dL Low 8.5-10.2 [facility] Comment on above: Order Comment: Speci men Type: BLOOD SPECIMEN [facility] Address: [address] [place] [address] Performed By: #### 2 4321-2, 2776-03, #### [facility] CLIA [id number] [address] [place] [address] [place] Chloride [Moles/Vol] 104 mmol/L Normal 97-105 [facility] Comment on above: Order Comment: Speci men Type: BLOOD SPECIMEN [facility] Address: [address] [place] [address] Performed By: #### 2 4321-2, 2776-03, #### [facility] CLIA [id number] [address] [place] [address] [place] CO2 [Moles/Vol] 27 mmol/L Normal 22-30 [facility] Comment on above: Order Comment: Speci men Type: BLOOD SPECIMEN [facility] Address: [address] [place] [address] Performed By: #### 2 4321-2, 2776-03, #### [facility] CLIA [id number] [place] [address] [place] Creatinine [Mass/Vol] 0.72 mg/dL Low 0.73-1.22 [facility] Comment on above: Order Comment: Speci men Type: BLOOD SPECIMEN [facility] Address: [address] [place] [id number] Performed By: #### 2 4321-2, 2777-, #### [facility] CLIA [id number] [address] [place] [address] [place] ESTIMATED GLOMERULAR FILTRATION RATE 93 mL/min/1.73m??? Normal >=60 [facility] Comment on above: Order Comment: Fab doran Type: BLOOD SPECIMEN [facility] Address: [address] [place] [id number] Result Comment: Karey mated Glomerular Filtration Rate [...] Performed By: #### 2 4321-2, 2777-, #### [facility] CLIA [id number] [address] [place] [address] [place] Glucose [Mass/Vol] 130 mg/dL High 74-99 [facility] Comment on above: Order Comment: Fab espinoza Type: BLOOD SPECIMEN [facility] Address: [address] [place] [address] Result Comment: The [place] Diabetes Association (ADA) provides guidance for cutoff [...] Standards of Medical Care in Diabetes 2016, [place] [employer]. Diabetes Care. 2016.39(Suppl 1). Performed By: #### 2 4321-2, 2776-03, #### [facility] CLIA [id number] [address] [place] [address] [place] Potassium [Moles/Vol] 4.0 mmol/L Normal 3.7-5.1 [facility] Comment on above: Order Comment: Speci men Type: BLOOD SPECIMEN [facility] Address: [address] [place] [address] Performed By: #### 2 4321-2, 2776-03, #### [facility] CLIA [id number] [address] [place] [address] [place] Sodium [Moles/Vol] 139 mmol/L Normal 136-144 [facility] Comment on above: Order Comment: Speci men Type: BLOOD SPECIMEN [facility] Address: [address] [place] [address] Performed By: #### 2 4321-2, 2776-03, #### [facility] CLIA [id number] [address] [place] [address] [place] Urea nitrogen [Mass/Vol] 13 mg/dL Normal 9-24 [facility] Comment on above: Order Comment: Speci men Type: BLOOD SPECIMEN [facility] Address: [address] [place] [address] Performed By: #### 2 4321-2, 2776-03, #### [facility] CLIA [id number] [address] [place] [address] [place] CBC panel Auto (Bld)on 05-13 Erythrocyte distribution width (RBC) [Ratio] 13.6 % Normal 11.5-15.0 [facility] Comment on above: Order Comment: Speci men Type: BLOOD SPECIMEN [facility] Address: [address] [place] [address] Performed By: #### 5 8410-2 #### [facility] CLIA [id number] [address] [place] [address] [place] Hematocrit (Bld) [Volume fraction] 36.2 % Low 39.0-51.0 [facility] Comment on above: Order Comment: Speci men Type: BLOOD SPECIMEN [facility] Address: [address] [place] [address] Performed By: #### 5 8410-2 #### [facility] CLIA [id number] [address] [place] [address] OF [facility] Hemoglobin (Bld) [Mass/Vol] 11.7 g/dL Low 13.0-17.0 [facility] Comment on above: Order Comment: Speci men Type: BLOOD SPECIMEN [facility] Address: [address] [place] [place] [address] Performed By: #### 5 8410-2 #### [facility] CLIA [id number] [address] [place] [address] [place] MCH (RBC) [Entitic mass] 30.8 pg Normal 26.0-34.0 [facility] Comment on above: Order Comment: Speci men Type: BLOOD SPECIMEN [facility] Address: [address] [place] [place] [address] Performed By: #### 5 8410-2 #### [facility] CLIA [id number] [address] [place] [address] [place] MCHC (RBC) [Mass/Vol] 32.3 g/dL Normal 30.5-36.0 [facility] Comment on above: Order Comment: Speci men Type: BLOOD SPECIMEN [facility] Address: [address] [place] [place] [address] Performed By: #### 5 8410-2 #### [facility] CLIA [id number] [address] [place] [address] [place] MCV (RBC) [Entitic vol] 95.3 fL Normal 80.0-100.0 [facility] Comment on above: Order Comment: Speci men Type: BLOOD SPECIMEN [facility] Address: [address] [place] [address] Performed By: #### 5 8410-2 #### [facility] CLIA [id number] [place] [address] [place] Nucleated RBC (Bld) [#/Vol] 10*3/uL Normal <0.01 [facility] Comment on above: Order Comment: Speci men Type: BLOOD SPECIMEN [facility] Address: [address] [place] [address] Performed By: #### 5 8410-2 #### [facility] CLIA [id number] [place] [address] [place] Platelet mean volume (Bld) [Entitic vol] 8.7 fL Low 9.0-12.7 [facility] Comment on above: Order Comment: Speci men Type: BLOOD SPECIMEN [facility] Address: [address] [place] [address] Performed By: #### 5 8410-2 #### [facility] CLIA [id number] [address] [place] [address] [place] Platelets (Bld) [#/Vol] 163 10*3/uL Normal 150-400 [facility] Comment on above: Order Comment: Speci men Type: BLOOD SPECIMEN [facility] Address: [address] [place] [address] Performed By: #### 5 8410-2 #### [facility] CLIA [id number] [address] [place] [address] [place] RBC (Bld) [#/Vol] 3.80 10*6/uL Low 4.20-6.00 [facility] Comment on above: Order Comment: Speci men Type: BLOOD SPECIMEN [facility] Address: [address] [place] [address] Performed By: #### 5 8410-2 #### [facility] CLIA [id number] [address] [place] [address] [place] WBC (Bld) [#/Vol] 11.23 10*3/uL High 3.70-11.00 [facility] Comment on above: Order Comment: Speci men Type: BLOOD SPECIMEN [facility] Address: [address] [place] [place] [address] Performed By: #### 5 8410-2 #### [facility] CLIA [id number] [place] BLOOD TYPEon 023 ABO O Normal [facility] Comment on above: Order Comment: Speci men Type: BLOOD SPECIMENOrdering Facility: [facility] Address: [address] [place] [address] Performed By: #### C ONABO ####[facility] [id number] [address] Rh Nom (Bld) Negative Normal [facility] Comment on above: Order Comment: Speci men Type: BLOOD SPECIMENOrdering Facility: [facility] Address: [address] [place] [address] Performed By: #### C ONABO ####[facility] [id number] [address] HISTORY PHYSICALon HISTORY PHYSICAL HNO ID: [id number] Author: Arleen Pringle MD Service: Critical Care [...] pain CAD (coronary artery disease) s/p CABG 2000, PCI w/ stents COPD (chronic obstructive pulmonary disease) ([facility]) Diabetic ulcer of right foot (HCC) 04/30/2022 [...] stent 04/30 (more content not included)... Normal [facility] HISTORY PHYSICAL HNO ID: [id number] Author: Marsha Blanca MD Service: Vascular Surgery [...] DATE: May 13, 2022 TIME: 9:40 AM [facility] Magnesium SerPl-mCncon 05-13 Magnesium [Mass/Vol] 1.9 mg/dL Normal 1.7-2.3 [facility] Comment on above: Order Comment: Speci men Type: BLOOD SPECIMEN [facility] Address: [address] [place] [address] Performed By: #### 2 4321-2, 2777-1, 73746-6 #### [facility] [id number] [address] [place] [address] [place] NURSING PROGon 05-13-2022 NURSING PROG HNO ID: [id number] Author: Mirna Ramires RN Service: Nursing Author [...] (RECOMMENDATION): None Electronically Signed By: Mirna Ramires [facility] OPERATIVE NOon 05-13-2022 OPERATIVE NO HNO ID: [id number] Author: Alex Rivas MD Service: Vascular Surgery Author Type: Physician Type: Operative Report Filed: 05/14/2022 8:31 AM Note Text: OPERATIVE/PROCEDURE REPORT LOG ID: [id number] Surgery/Procedure Date: 05/13/2022 Incision/Procedure Start Time:12:19 PM Incision Close/Procedure End Time: 5:16 PM Surgeon(s)/Proceduralist(s) and Cold Rolling Machine Setter(s): Surgeon(s) and Role: Panel 1: * Alex [...] calcified. An endarterectomy was performed with a [place] elevator. A profundaplasty was performed with the [place] and fine clamps. 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 We found stenosis in the external [...] DATE: 05/13/2022 TIME: 8:20 AM PAGER/CONTACT #: [phone] [facility] OPERATIVE NO HNO ID: [id number] Author: Lorne Hutchinson MD Service: Urology Author Type: Physician Type: Operative Report Filed: 05/13/2022 1:16 PM Note Text: OPERATIVE/PROCEDURE REPORT Name: Oswaldo Corley LOG ID: [id number] Surgery/Procedure Date: 05/13/2022 Incision/Procedure Start Time: 12:19 PM Incision Close/Procedure End Time: Surgeon(s)/Proceduralist(s) and Cold Rolling Machine Setter(s): Surgeon(s) and Role: Panel 1: * Alex [...] Oswaldo Corley DATE: May 13, 2022 Normal [facility] PT panel Coag (PPP)on 2022 INR Coag (PPP) [Relative time] {INR} Low 0.9-1.3 [facility] Comment on above: Order Comment: Speci men Type: BLOOD SPECIMEN [facility] Address: [address] [place] [phone] Result Comment: Isabell min K Antagonist (VKA) Therapeutic Range: INR 2 to 3 (Target INR of 2.5) Note: For patients treated with VKA drugs, such as warfarin, the [employer] [facility] 2012 Guideline recommends [...] to 3.5 (target INR of 3). Eliane OLIVA, et al. Chest 2012, 141:7S-47S Wes CHÁVEZ et al. [facility] 2017, 70: 252-289 Performed By: #### 1 4979-9, 91804-0 #### [facility] CLIA [id number] [place] [address] [place] [facility] PT Coag (PPP) [Time] 10.3 s Normal 9.7-13.0 [facility] Comment on above: Order Comment: Speci men Type: BLOOD SPECIMEN Ordering Facility: [facility] Address: [address] [address] Performed By: #### 1 4979-9, 83530-0 #### [facility] CLIA [id number] [place] [address] [place] Phosphate SerPl-mCncon 05-13 Phosphate [Mass/Vol] 3.2 mg/dL Normal 2.7-4.8 [facility] Comment on above: Order Comment: Speci men Type: BLOOD SPECIMEN Ordering Facility: [facility] Address: [address] [place] [address] Performed By: #### 2 4321-2, 2777-1, 80109-0 #### [facility] CLIA [id number] [place] [address] [place] SARS-CoV-2 RNA Resp Ql DORYS+p robeon 05-13-2022 SARS-CoV-2 (COVID-19) RNA DORYS+probe Ql (Resp) COVID 19 RESULT: Not detected The method used is RT-PCR or an equivalent NAAT method. Reference Range(the expected result in uninfected individuals): Not detected Normal [facility] Comment on above: Performed By: #### 9 4500-6 ####[facility] [id number] [address] [place] aPTT PPPon 05-13-2022 aPTT Coag (PPP) [Time] 31.2 s Normal 23.0-32.4 [facility] Comment on above: Order Comment: Speci men Type: BLOOD SPECIMEN Ordering Facility: [facility] Address: [address] [place] [address] Performed By: #### 1 4979-9, 75548-4 #### [facility] [id number] STATES OF [facility] ECHOon 04-24-2022 [facility] No Panel InformationOrdered By: KHOA Alethea Wellsmela on 04-09-2022 Prostate Specific Antigen Total 0.18 ng/mL 0.0-4.0 [facility] Comment on above: This test was perfor med using the TPSA assay method for theDimension chemistry system. Values obtained with differentassay methods cannot be used interchangably.When changing PSA assays in the course of monitoring apatient, additional sequential testing should be carriedout to confirm baseline values. XR FOOT GENERAL 3V AP/LAT/OB L RIGHTon 03-19-2022 [facility] XR FOOT GENERAL 3V AP/LAT/OB L RIGHTon 02-18-2022 [facility] XR FOOT GENERAL 3V AP/LAT/OB L RIGHTon 01-28-2022 [facility] No Panel Informationon 10-07 Prostate Specific Antigen Total 0.22 ng/mL 0.0-4.0 [facility] Work Phone: Comment on above: This test was perfor med using the TPSA assay method for theDimension chemistry system. Values obtained with differentassay methods cannot be used interchangably.When changing PSA assays in the course of monitoring apatient, additional sequential testing should be carriedout to confirm baseline values. Karen 09-04-2021 TONY Telephone (JAROD ) OSWALDO CORLEY ([id number]) 1940 M Date Time Provider Department 09/04/21 BELA MANZANO During your visit today, we recorded the following information about you: Rosalie Latif LPN 09/04/2021 10:44 AM Signed Clearance form received from [facility], [facility]. Form placed in Dr. Manzano's door box. Rosalie Latif LPN Allergies As of Date: 09/04/2021 Noted Allergy Reaction IMDUR (ISOSORBIDE MONONITRATE) 03/14/2015 4 - Hives Comments: Black out and dizziness Date Reviewed: 07/19/2021 Reviewed by: Durga Rowan Ma - Fully Assessed Reason for Visit: Cardiac Clearance [4105] Prescriptions as of 09/04/2021 - atorvastatin (LIPITOR) [...] (AAA) without rupture*11/19/2018 Coronary artery disease involving bishop paiute acuña*03/18/2019 S/P coronary artery stent placement, status pos*03/18/2019 S/P CABG x 3 [Z95.1] 03/18/2019 Squamous carcinoma of lung, 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.92] 11/29/2020 Encounter Status:Closed by ROSALIE LATIF on 09/04/21 Normal [facility] CT CHEST W IVCONon 2 [facility] XR Chest PA and Lateralon IMPRESSION: Improving bilateral airspace disease and hydropneumothorax of the left hemithorax. Small amount of extra ventilatory air with air-fluid level noted at the left lung base anterolaterally measuring less than 3 cm in sagittal length. [facility] Transcribe Date/Time: Oct 04 2020 8:56P Dictated by : ZEN ALCARAZ MD This examination was interpreted and the report reviewed and electronically signed by: ZEN ALCARAZ MD on Oct 04 2020 9:04PM [facility] DIVISION OF RADIOLOGY * * *Final Report* [...] structures are intact DIVISION OF RADIOLOGY Provider, [facility] - 10/04/2020 * * *Final Report* * [...] less than 3 cm in sagittal length. Rn Internal Medicine: [facility] Transcribe Date/Time: Oct 04 2020 8:56P Dictated by : ZEN ALCARAZ MD This examination was interpreted and the report reviewed and electronically signed by: ZEN ALCARAZ MD on Oct 04 2020 9:04PM EST [facility] Radiology Study observation (narrative) [facility] XR Chest PA and LateralOrder ed By: [facility] Provider on 10-04-2020 [facility] Basic Metabolic Panelon 02-0 Calcium [Mass/Vol] 9.0 mg/dL Normal 8.4-10.4 [facility] Comment on above: Performed By: #### B MP3, HEMDF #### [facility] [address] [place] [address] Anion gap [Moles/Vol] 8 Normal [facility] Comment on above: Performed By: #### B MP3, HEMDF #### [facility] [address] [place] [address] CO2 [Moles/Vol] 23 mmol/L Normal 22-30 [facility] Comment on above: Performed By: #### B MP3, HEMDF #### [facility] [address] [place] [address] Creatinine [Mass/Vol] 0.65 mg/dL Normal 0.52-1.25 [facility] Comment on above: Performed By: #### B MP3, HEMDF #### [facility] [address] [place] [address] GFR/1.73 sq M predicted among blacks MDRD (S/P/Bld) [Vol rate/Area] mL/min/{1.73_m2} Normal >60 [facility] Comment on above: Performed By: #### B MP3, HEMDF #### [facility] [address] [place] [address] GFR/1.73 sq M predicted among non-blacks MDRD (S/P/Bld) [Vol rate/Area] mL/min/{1.73_m2} Normal >60 [facility] Comment on above: Result Comment: KDIG O [...] Performed By: #### B MP3, HEMDF #### [address] [address] [place], [place] Glucose [Mass/Vol] 142 mg/dL High 70-100 [facility] Comment on above: Performed By: #### B MP3, HEMDF #### [address] [address] [place], [place] Urea nitrogen [Mass/Vol] 16 mg/dL Normal 7-20 [facility] Comment on above: Performed By: #### B MP3, HEMDF #### [address] [address] [place], [place] Chloride [Moles/Vol] 110 mmol/L High 98-107 [facility] Comment on above: Performed By: #### B MP3, HEMDF #### [facility] [address], [place] Potassium [Moles/Vol] 4.7 mmol/L Normal 3.5-5.1 [facility] Comment on above: Performed By: #### B MP3, HEMDF #### [facility] [address] [place] [address] Sodium [Moles/Vol] 141 mmol/L Normal 135-145 [facility] Comment on above: Performed By: #### B MP3, HEMDF #### [address] [address] [place] [address] Anion gap [Moles/Vol] 8 mmol/L [facility], [place] Calcium [Mass/Vol] 9.0 mg/dL 8.4 - 10. 4 mg/dL [place], [place] Chloride [Moles/Vol] 110 mmol/L High 98 - 10 7 mmol/L [place] CO2 [Moles/Vol] 23 mmol/L 22 - 30 mmol/L [place] Creatinine [Mass/Vol] 0.65 mg/dL 0.52 - 1.25 mg/dL [place] EGFR IF NonAfrican Lebanese >90.0 >60 mL/min [place] Comment on above: KDIGO guidelines pro [...] MDRD (S/P/Bld) [Vol rate/Area] mL/min/{1.73_m2} >60 mL/min [place] Glucose [Mass/Vol] 142 mg/dL High 70 - 100 mg/dL [place] Interpretation and review of laboratory results Abnormal [place] Potassium [Moles/Vol] 4.7 mmol/L 3.5 - 5.1 mmol/L [place] Sodium [Moles/Vol] 141 mmol/L 135 - 145 mmol/L [place] Urea nitrogen [Mass/Vol] 16 mg/dL 7 - 20 mg/dL [place] Test Performed by [facility], [address] [place] [address] [place], [place] CBC Auto Differentialon Absolute Baso # 0.0 10*3/uL 0 - 0.2 10*3/uL [place] Absolute Neut # 4.4 10*3/uL 1.8 - 7 10*3/uL [place] Basophils/100 WBC (Bld) 0.1 % 0 - 2 % [place] Eosinophils (Bld) [#/Vol] 0.0 10*3/uL 0 - 0.5 10*3/uL [place] Eosinophils/100 WBC (Bld) 0.0 % Low 1 - 6 % [place] Erythrocyte distribution width (RBC) [Ratio] 16.9 % High 11.5 - 14.5 % [place] Granulocytes/100 WBC (Bld) 92.5 % High 40 - 80 % [place] Hematocrit (Bld) [Volume fraction] 38.9 % Low 40 - 52 % [place] Hemoglobin (Bld) [Mass/Vol] 12.5 g/dL Low 13 - 18 g/dL [place] Interpretation and review of laboratory results Abnormal [place] Lymphocytes (Bld) [#/Vol] 0.3 10*3/uL Low 1 - 4.3 10*3/uL [place] Lymphocytes/100 WBC (Bld) 5.9 % Low 20 - 40 % [place] MCH (RBC) [Entitic mass] 28.0 pg 26 - 34 pg [place] MCHC (RBC) [Mass/Vol] 32.0 % 32 - 36 % [place], [place] MCV (RBC) [Entitic vol] 87.5 fL 80 - 98 fL [place] Monocytes (Bld) [#/Vol] 0.1 10*3/uL 0 - 0.8 10*3/uL [place] Monocytes/100 WBC (Bld) 1.5 % Low 2 - 10 % [place] Platelet mean volume (Bld) [Entitic vol] 6.8 fL Low 7.4 - 10.4 fL [place] Platelets (Bld) [#/Vol] 224 10*3/uL 140 - 440 10*3/uL [place] RBC (Bld) [#/Vol] 4.44 10*6/uL 4.4 - 5.9 10*6/uL [place] WBC (Bld) [#/Vol] 4.7 10*3/uL 3.6 - 10.7 10*3/uL [place] Test Performed by [facility], [address] [place] [address] [place], [place] CR Chest Portableon 04-07-19 21 CR Chest Portable Patient Name: OSWALDO CORLEY Diagnostic Radiology ACCESSION EXAM DATE/TIME PROCEDURE ORDERING PROVIDER [id number] 04/07/2020 07:34 EST CR Chest Portable STALIN PARSONS CPT code 30449 Reason For Exam (CR Chest Portable) small [...] Transcribed Date and Time: 04/07/2020 7:10 Normal [facility] Hemogram w/ Autodiffon 04-07 Abs Baso Cnt 0.0 10*3/uL Normal 0.0-0.2 [facility] Comment on above: Performed By: #### B MP3, HEMDF #### [address] Abs Neutrophile Cnt 4.4 10*3/uL Normal 1.8-7.0 [facility] Comment on above: Performed By: #### B MP3, HEMDF #### [address] [address] [place], [place] Basophils/100 WBC (Bld) 0.1 % Normal 0.0-2.0 [facility] Comment on above: Performed By: #### B CHELA, HEMDF #### [address] Eosinophils (Bld) [#/Vol] 0.0 10*3/uL Normal 0.0-0.5 [facility] Comment on above: Performed By: #### Sana YORK, HEMDF #### [address] Eosinophils/100 WBC (Bld) 0.0 % Low 1.0-6.0 [facility] Comment on above: Performed By: #### Sana YORK, HEMDF #### [address] Erythrocyte distribution width (RBC) [Ratio] 16.9 % High 11.5-14.5 [facility] Comment on above: Performed By: #### Sana YORK, HEMDF #### [address] [address] [address] [place], [place] Granulocytes/100 WBC (Bld) 92.5 % High 40.0-80.0 [facility] Comment on above: Performed By: #### B MP3, HEMDF #### [address] Hematocrit (Bld) [Volume fraction] 38.9 % Low 40.0-52.0 [facility] Comment on above: Performed By: #### B MP3, HEMDF #### [address], [place] Hemoglobin (Bld) [Mass/Vol] 12.5 g/dL Low 13.0-18.0 [facility] Comment on above: Performed By: #### B MP3, HEMDF #### [facility] [address], [place] Lymphocytes (Bld) [#/Vol] 0.3 10*3/uL Low 1.0-4.3 [facility] Comment on above: Performed By: #### B MP3, HEMDF #### [address] [address] [place] [address] Lymphocytes/100 WBC (Bld) 5.9 % Low 20.0-40.0 [facility] Comment on above: Performed By: #### B MP3, HEMDF #### [address] [address] [address] [place], [place] MCH (RBC) [Entitic mass] 28.0 pg Normal 26.0-34.0 [facility] Comment on above: Performed By: #### B MP3, HEMDF #### [address] [address] [address] [place], [place] MCHC (RBC) [Mass/Vol] 32.0 % Normal 32.0-36.0 [facility] Comment on above: Performed By: #### B MP3, HEMDF #### [address] [address] [address] [place], [place] MCV (RBC) [Entitic vol] 87.5 fL Normal 80.0-98.0 [facility] Comment on above: Performed By: #### B MP3, HEMDF #### [address] [address] [address] [place], [place] Monocytes (Bld) [#/Vol] 0.1 10*3/uL Normal 0.0-0.8 [facility] Comment on above: Performed By: #### B MP3, HEMDF #### [address] [address] [address], [place] Monocytes/100 WBC (Bld) 1.5 % Low 2.0-10.0 [facility] Comment on above: Performed By: #### B MP3, HEMDF #### [facility] [address], [place] Platelet mean volume (Bld) [Entitic vol] 6.8 fL Low 7.4-10.4 [facility] Comment on above: Performed By: #### B MP3, HEMDF #### [facility] [address], [place] Platelets (Bld) [#/Vol] 224 10*3/uL Normal 140-440 [facility] Comment on above: Performed By: #### B MP3, HEMDF #### [facility] [address], [place] RBC (Bld) [#/Vol] 4.44 10*6/uL Normal 4.40-5.90 [facility] Comment on above: Performed By: #### B MP3, HEMDF #### [facility] [address], [place] WBC (Bld) [#/Vol] 4.7 10*3/uL Normal 3.6-10.7 [facility] Comment on above: Performed By: #### B MP3, HEMDF #### [facility] [address], [place] XR CHEST PORTABLEon 04-07-19 21 [facility] Incoming Radiology Results From [facility] - 04/07/2020 7:34 AM EST Patient Name: OSWALDO CORLEY Diagnostic Radiology ACCESSION EXAM DATE/TIME PROCEDURE ORDERING PROVIDER [id number] 04/07/2020 07:34 EST CR Chest Portable STALIN PARSONS CPT code 77939 Reason For Exam (CR Chest Portable) small [...] VLADIMIR Transcribed Date and Time: 04/07/2020 7:10 [place], [place] [id number] Radiology ACCESSION EXAM DATE/TIME PROCEDURE ORDERING PROVIDER [id number] 04/07/2020 07:34 EST CR Chest Portable STALIN PARSONS CPT code 13373 Reason For Exam (CR Chest Portable) small [...] VLADIMIR Transcribed Date and Time: 04/07/2020 7:10 [place], [place] Basic Metabolic Panelon 02-0 Anion gap [Moles/Vol] 5 Normal [facility] Comment on above: Performed By: #### H IJEOMA BMP3 #### [facility] [address], [place] Calcium [Mass/Vol] 9.2 mg/dL Normal 8.4-10.4 [facility] Comment on above: Performed By: #### H IJEOMA BMP3 #### [address] [address] [address] [place], [place] CO2 [Moles/Vol] 25 mmol/L Normal 22-30 [facility] Comment on above: Performed By: #### H IJEOMA BMP3 #### [facility] [address], [place] Glucose [Mass/Vol] 101 mg/dL High 70-100 [facility] Comment on above: Performed By: #### H IJEOMA BMP3 #### [address] [address] [address] [place], [place] Urea nitrogen [Mass/Vol] 20 mg/dL Normal 7-20 [facility] Comment on above: Performed By: #### H IJEOMA BMP3 #### [address] [address] [address] [place], [place] Creatinine [Mass/Vol] 0.78 mg/dL Normal 0.52-1.25 [facility] Comment on above: Performed By: #### H IJEOMA BMP3 #### [facility] [address] [address] [address], [place] GFR/1.73 sq M predicted among blacks MDRD (S/P/Bld) [Vol rate/Area] mL/min/{1.73_m2} Normal >60 [facility] Comment on above: Performed By: #### H IJEOMA BMP3 #### [address] [address] GFR/1.73 sq M predicted among non-blacks MDRD (S/P/Bld) [Vol rate/Area] 86.6 mL/min/{1.73_m2} Normal >60 [facility] Comment on above: Result Comment: KDIG O [...] Performed By: #### H IJEOMA BMP3 #### [address] Chloride [Moles/Vol] 108 mmol/L High 98-107 [facility] Comment on above: Performed By: #### H IJEOMA BMP3 #### [address] Potassium [Moles/Vol] 4.1 mmol/L Normal 3.5-5.1 [facility] Comment on above: Performed By: #### H IJEOMA BMP3 #### [address] Sodium [Moles/Vol] 138 mmol/L Normal 135-145 [facility] Comment on above: Performed By: #### H IJEOMA BMP3 #### [address] Anion gap [Moles/Vol] 5 mmol/L [facility], [place] Calcium [Mass/Vol] 9.2 mg/dL 8.4 - 10. 4 mg/dL [place] Chloride [Moles/Vol] 108 mmol/L High 98 - 10 7 mmol/L [place] CO2 [Moles/Vol] 25 mmol/L 22 - 30 mmol/L [place] Creatinine [Mass/Vol] 0.78 mg/dL 0.52 - 1.25 mg/dL [place] EGFR IF NonAfrican Lebanese 86.6 mL/min >60 [place] Comment on above: KDIGO guidelines pro [...] MDRD (S/P/Bld) [Vol rate/Area] mL/min/{1.73_m2} >60 mL/min [place] Glucose [Mass/Vol] 101 mg/dL High 70 - 100 mg/dL [place] Interpretation and review of laboratory results Abnormal [place] Potassium [Moles/Vol] 4.1 mmol/L 3.5 - 5.1 mmol/L [place] Sodium [Moles/Vol] 138 mmol/L 135 - 145 mmol/L [place] Urea nitrogen [Mass/Vol] 20 mg/dL 7 - 20 mg/dL [place] Test Performed by [facility], [address] [place] [address] [place], [place] CBC Auto Differentialon 02-0 Absolute Baso # 0.0 10*3/uL 0 - 0.2 10*3/uL [place] Absolute Neut # 3.5 10*3/uL 1.8 - 7 10*3/uL [place] Basophils/100 WBC (Bld) 0.5 % 0 - 2 % [place] Eosinophils (Bld) [#/Vol] 0.1 10*3/uL 0 - 0.5 10*3/uL [place] Eosinophils/100 WBC (Bld) 2.1 % 1 - 6 % [place] Erythrocyte distribution width (RBC) [Ratio] 17.0 % High 11.5 - 14.5 % [place] Granulocytes/100 WBC (Bld) 75.6 % 40 - 80 % [place] Hematocrit (Bld) [Volume fraction] 39.6 % Low 40 - 52 % [place] Hemoglobin (Bld) [Mass/Vol] 12.8 g/dL Low 13 - 18 g/dL [place] Interpretation and review of laboratory results Abnormal [place] Lymphocytes (Bld) [#/Vol] 0.6 10*3/uL Low 1 - 4.3 10*3/uL [place] Lymphocytes/100 WBC (Bld) 12.3 % Low 20 - 40 % [place] MCH (RBC) [Entitic mass] 28.2 pg 26 - 34 pg [place] MCHC (RBC) [Mass/Vol] 32.3 % 32 - 36 % [place] MCV (RBC) [Entitic vol] 87.5 fL 80 - 98 fL [place] Monocytes (Bld) [#/Vol] 0.4 10*3/uL 0 - 0.8 10*3/uL [place] Monocytes/100 WBC (Bld) 9.5 % 2 - 10 % [place] Platelet mean volume (Bld) [Entitic vol] 6.8 fL Low 7.4 - 10.4 fL [place] Platelets (Bld) [#/Vol] 211 10*3/uL 140 - 440 10*3/uL [place] RBC (Bld) [#/Vol] 4.53 10*6/uL 4.4 - 5.9 10*6/uL [place] WBC (Bld) [#/Vol] 4.7 10*3/uL 3.6 - 10.7 10*3/uL [place] Test Performed by [facility], [address] [place] [id number] [place] [address] CTA Chest W WO (PE study)on 04-06-2020 Patient Name: OSWALDO CORLEY Computed Tomography ACCESSION EXAM DATE/TIME PROCEDURE ORDERING PROVIDER [id number] 04/06/2020 00:38 EST CTA Chest w/ + w/o [id number] -SUKI, Contrast YINA CPT code 27842 Q9967 Reason For Exam (CTA Chest w/ + w/o Contrast) Pulmonary embolism; Male; No imaging to r/o PE in the last 24 hours; Pulmonary Embolism Rule-Out Criteria (PERC) score > 0; Revised Lincoln Score (RGS) not >= 11; No D-dimer [...] Computed Tomography Report Report Dictated on Workstation: [facility] --- Final --- Dictated: 04/06/2020 1:16 am Dictating Physician: DO TONG ALFRED Signed Date and Time: 04/06/2020 1:22 am Signed by: DO TONG ALFRED Transcribed Date and Time: 04/06/2020 1:16 [facility], [place] Incoming Radiology Results From [facility] - 04/06/2020 1:23 AM EST Patient Name: OSWALDO CORLEY [facility]#: [id number] Computed Tomography ACCESSION EXAM DATE/TIME PROCEDURE ORDERING PROVIDER [id number] 04/06/2020 00:38 EST CTA Chest w/ + w/o [id number] -SUKIJodee LINTON YINA CPT code 50717 Q9967 Reason For Exam (CTA Chest w/ + w/o Contrast) Pulmonary embolism; Male; No imaging to r/o PE in the last 24 hours; Pulmonary Embolism Rule-Out Criteria (PERC) score > 0; Revised Lincoln Score (RGS) not >= 11; No D-dimer [...] Computed Tomography Report Report Dictated on Workstation: [facility] --- Final --- Dictated: 04/06/2020 1:16 am Dictating Physician: DO TONG ALFRED Signed Date and Time: 04/06/2020 1:22 am Signed by: DO TONG ALFRED Transcribed Date and Time: 04/06/2020 1:16 [place] CTA Chest w/ + w/o Contrasto n 04-06-2020 CTA Chest w/ + w/o Contrast Patient Name: OSWALDO CORLEY [facility]#: [id number] Computed Tomography ACCESSION EXAM DATE/TIME PROCEDURE ORDERING PROVIDER [id number] 04/06/2020 00:38 EST CTA Chest w/ + w/o [id number] -Jodee COHN CPT code 41177 Q9967 Reason For Exam (CTA Chest w/ + w/o Contrast) Pulmonary embolism; Male; No imaging to r/o PE in the last 24 hours; Pulmonary Embolism Rule-Out Criteria (PERC) score > 0; Revised Lincoln Score (RGS) not >= 11; No D-dimer [...] Computed Tomography Report Report Dictated on Workstation: [employer] Final Dictated: 04/06/2020 1:16 am Dictating Physician: DO TONG ALFRED Signed Date and Time: 04/06/2020 1:22 am Signed by: DO TONG ALFRED Transcribed Date and Time: 04/06/2020 1:16 Normal [facility] EKG 12 Lead - Chest Painon 0 04-06-2020 [facility], [facility] Incoming Cardiology Results From [facility] - 04/06/2020 4:36 PM EST [facility] Test Date: 2020-04-05 Pat Name: Oswaldo Corley Department: [facility] Room: [facility] 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 Food: MARGOT : 1940 Requested By: YINA COHN Order Number: [id number] Reading MD: Trevon Casillas Measurements Intervals [place] Rate: 93 P: 71 OK: 162 QRS: 30 QRSD: 82 T: 23 QT: 327 QTc: 407 Interpretive Statements Sinus rhythm Electronically Signed On 04-06-2020 16:34:59 EST by Trevon Casillas [facility] Test Date: 2020-04-05 Pat Name: Oswaldo Corley Department: [facility] Room: [facility] 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 Food: MARGOT : 1940 Requested By: YINA COHN Order Number: [id number] Reading MD: Trevon Casillas Measurements Intervals [place] Rate: 93 P: 71 OK: 162 QRS: 30 QRSD: 82 T: 23 QT: 327 QTc: 407 Interpretive Statements Sinus rhythm Electronically Signed On 04-06-2020 16:34:59 EST by Trevon Casillas [facility], [place] Hemogram w/ Autodiffon 04-06 Abs Baso Cnt 0.0 10*3/uL Normal 0.0-0.2 [facility] Comment on above: Performed By: #### H IJEOMA BMP3 #### [facility] [address] [place] [address] Abs Neutrophile Cnt 3.5 10*3/uL Normal 1.8-7.0 [facility] Comment on above: Performed By: #### H EMDF, BMP3 #### [facility] [address] [place] [address] Basophils/100 WBC (Bld) 0.5 % Normal 0.0-2.0 [facility] Comment on above: Performed By: #### H EMDF, BMP3 #### [facility] [address] [place] [address] Eosinophils (Bld) [#/Vol] 0.1 10*3/uL Normal 0.0-0.5 [facility] Comment on above: Performed By: #### H EMDF, BMP3 #### [facility] [address] [place] [address] Eosinophils/100 WBC (Bld) 2.1 % Normal 1.0-6.0 [facility] Comment on above: Performed By: #### H EMDF, BMP3 #### [facility] [address] [place] [address] Erythrocyte distribution width (RBC) [Ratio] 17.0 % High 11.5-14.5 [facility] Comment on above: Performed By: #### H EMDF, BMP3 #### [facility] [address] [place] [address] Granulocytes/100 WBC (Bld) 75.6 % Normal 40.0-80.0 [facility] Comment on above: Performed By: #### H EMDF, BMP3 #### [facility] [address] [place], [place] Hematocrit (Bld) [Volume fraction] 39.6 % Low 40.0-52.0 [facility] Comment on above: Performed By: #### H EMDF, BMP3 #### [facility] [address] [place], [place] Hemoglobin (Bld) [Mass/Vol] 12.8 g/dL Low 13.0-18.0 [facility] Comment on above: Performed By: #### H EMDF, BMP3 #### [address] [address] [place], [place] Lymphocytes (Bld) [#/Vol] 0.6 10*3/uL Low 1.0-4.3 [facility] Comment on above: Performed By: #### H EMDF, BMP3 #### [address] [address] [address] [place], [place] Lymphocytes/100 WBC (Bld) 12.3 % Low 20.0-40.0 [facility] Comment on above: Performed By: #### H EMDF, BMP3 #### [address] [address] [address] [place], [place] MCH (RBC) [Entitic mass] 28.2 pg Normal 26.0-34.0 [facility] Comment on above: Performed By: #### H EMDF, BMP3 #### [address] [address] [address] [place], [place] MCHC (RBC) [Mass/Vol] 32.3 % Normal 32.0-36.0 [facility] Comment on above: Performed By: #### H EMDF, BMP3 #### [address] MCV (RBC) [Entitic vol] 87.5 fL Normal 80.0-98.0 [facility] Comment on above: Performed By: #### H EMDF, BMP3 #### [address] [address] [place], [place] Monocytes (Bld) [#/Vol] 0.4 10*3/uL Normal 0.0-0.8 [facility] Comment on above: Performed By: #### H IJEOMA BMP3 #### [address] [address] [place], [place] Monocytes/100 WBC (Bld) 9.5 % Normal 2.0-10.0 [facility] Comment on above: Performed By: #### Kareem RAPHAEL BMP3 #### [address] [address] [place], [place] Platelet mean volume (Bld) [Entitic vol] 6.8 fL Low 7.4-10.4 [facility] Comment on above: Performed By: #### H IJEOMA BMP3 #### [address] Platelets (Bld) [#/Vol] 211 10*3/uL Normal 140-440 [facility] Comment on above: Performed By: #### Kareem RAPHAEL BMP3 #### [address] [address] [place], [place] RBC (Bld) [#/Vol] 4.53 10*6/uL Normal 4.40-5.90 [facility] Comment on above: Performed By: #### Kareem RAPHAEL BMP3 #### [address] [address] [place], [place] WBC (Bld) [#/Vol] 4.7 10*3/uL Normal 3.6-10.7 [facility] Comment on above: Performed By: #### Kareem RAPHAEL BMP3 #### [address] [place], [place] CT CHEST WO CONTRASTon 04-05 Patient Name: OSWALDO CORLEY Computed Tomography ACCESSION EXAM DATE/TIME PROCEDURE ORDERING PROVIDER [id number] 04/05/2020 21:[address] Thorax w/o Contrast [id number] -YINA COHN CPT code 13200 Reason For Exam (CT Thorax w/o Contrast) [...] WENDELL Transcribed Date and Time: 04/05/2020 9:33 [place], [place], [facility] Incoming Radiology Results From [facility] - 04/05/2020 9:47 PM EST Patient Name: OSWALDO CORLEY Computed Tomography ACCESSION EXAM DATE/TIME PROCEDURE ORDERING PROVIDER [id number] 04/05/2020 21:[address] Thorax w/o Contrast [id number] -YINA COHN CPT code 78634 Reason For Exam (CT Thorax w/o Contrast) [...] WENDELL Transcribed Date and Time: 04/05/2020 9:33 [place], [place] CT Chest w/o Contraston CT Chest w/o Contrast Patient Name: OSWALDO TORRES [facility]#: [id number] Computed Tomography ACCESSION EXAM DATE/TIME PROCEDURE ORDERING PROVIDER [id number] 04/05/2020 21:[address] Thorax w/o Contrast [id number] -YINA COHN CPT code 62558 Reason For Exam (CT Thorax w/o Contrast) [...] Transcribed Date and Time: 04/05/2020 9:33 Normal [facility] ED Provider Noteon ED Provider Note Emergency Department Encounter [facility] EMERGENCY DEPT Patient: Oswaldo Corley : 1940 [...] pain or nausea and vomiting. Focused exam: Say-ggj-luttvecdo in no acute distress. Alert and oriented [...] CT demonstrate extension of pneumothorax. Paged resident engine repairer production for Dr. Herrmann [AD] 2129 Resident Bela [...] requested a medical admit. I staged [facility] engine repairer production [AD] 2339 Spoke to [facility] engine repairer production, to Dr. Bazan from [facility] and he requests CT PE to r/o PE. Study ahs been ordered. Spoke to pt and he is in agreement. Pt got labs at 14:50pm at [place], Cr <1. No need for new labs [...] occasionally words are mis-transcribed.) Eva Call MD [facility] Eva Call MD 04/06/20 0159 Eva Call MD 04/06/20 0159 [facility] ED Provider Note [facility] EMERGENCY DEPT EMERGENCY DEPARTMENT ENCOUNTER Pt Name: Oswaldo Corley Birthdate 1940 Date of evaluation: 04/05/2020 Provider: Yina Cohn MD CHIEF COMPLAINT Chief Complaint Patient presents with ? Shortness of Breath pt came from [facility] via EMS for left sided hydropneumothorax pt states he was in the hospital 2 weeks ago with two chest tubes on the left side. pt went to [facility] today for SOB and was brought here. [...] (HCC) ? COPD (chronic obstructive pulmonary disease) (HCC) ? HLD (hyperlipidemia) ? HTN (hypertension) ? [...] None Soci (more content not included)... Normal [facility] Troponinon 04-05-2020 Troponin I.cardiac [Mass/Vol] ng/mL 0 - 0.034 ng/mL [place], [place] Comment on above: . Test Performed by [facility], [address] [place] [address] Troponin Ion 04-05-2020 Troponin I.cardiac [Mass/Vol] ng/mL Normal 0.000-0.03 4 [facility] Comment on above: Result Comment: . Performed By: #### H RENETTA RAPHAEL3 #### [address] [address] Op Noteon 03-10-2020 Op Note PATIENT: MEETA [...] of positive pressure ventilation. Diskriter Job ID: [id number] Oliverio Herrmann MD DOD:03/10/2020 03:38 P EE/dsk DOT:03/10/2020 04:52 P Job Number: [id number] Document Number: [id number] cc: Oliverio Herrmann MD [facility] [address] [address] Normal [facility] Basic Metabolic Panelon 01-0 Anion gap [Moles/Vol] 6 Normal [facility] Comment on above: Performed By: #### B MP3, HEMDF #### [address] Calcium [Mass/Vol] 8.3 mg/dL Low 8.4-10.4 [facility] Comment on above: Performed By: #### Sana MP3, HEMDF #### [address] CO2 [Moles/Vol] 27 mmol/L Normal 22-30 [facility] Comment on above: Performed By: #### Sana MP3, HEMDF #### [address] [address] Glucose [Mass/Vol] 115 mg/dL High 70-100 [facility] Comment on above: Performed By: #### B MP3, HEMDF #### [address] [address] [place], [place] Urea nitrogen [Mass/Vol] 14 mg/dL Normal 7-20 [facility] Comment on above: Performed By: #### B MP3, HEMDF #### [address] Creatinine [Mass/Vol] 0.73 mg/dL Normal 0.52-1.25 [facility] Comment on above: Performed By: #### B MP3, HEMDF #### [facility] [address] [place] [address] GFR/1.73 sq M predicted among blacks MDRD (S/P/Bld) [Vol rate/Area] mL/min/{1.73_m2} Normal >60 [facility] Comment on above: Performed By: #### B MP3, HEMDF #### [facility] [address] [place], [place] GFR/1.73 sq M predicted among non-blacks MDRD (S/P/Bld) [Vol rate/Area] 89.1 mL/min/{1.73_m2} Normal >60 [facility] Comment on above: Result Comment: KDIG O [...] Performed By: #### B MP3, HEMDF #### [facility] [address] [place], [place] Potassium [Moles/Vol] 3.7 mmol/L Normal 3.5-5.1 [facility] Comment on above: Performed By: #### B MP3, HEMDF #### [facility] [address] [place], [place] Sodium [Moles/Vol] 133 mmol/L Low 135-145 [facility] Comment on above: Performed By: #### B MP3, HEMDF #### [facility] [address] [place] [address] Chloride [Moles/Vol] 100 mmol/L Normal 98-107 [facility] Comment on above: Performed By: #### B MP3, HEMDF #### [facility] [address] [place] [address] Anion gap [Moles/Vol] 6 mmol/L [place], [place] Calcium [Mass/Vol] 8.3 mg/dL Low 8.4 - 10. 4 mg/dL [place], [place] Chloride [Moles/Vol] 100 mmol/L 98 - 10 7 mmol/L [place] CO2 [Moles/Vol] 27 mmol/L 22 - 30 mmol/L [place] Creatinine [Mass/Vol] 0.73 mg/dL 0.52 - 1.25 mg/dL [place] EGFR IF NonAfrican Lebanese 89.1 mL/min >60 [place] Comment on above: KDIGO guidelines pro [...] MDRD (S/P/Bld) [Vol rate/Area] mL/min/{1.73_m2} >60 mL/min [place] Glucose [Mass/Vol] 115 mg/dL High 70 - 100 mg/dL [place] Interpretation and review of laboratory results Abnormal [place] Potassium [Moles/Vol] 3.7 mmol/L 3.5 - 5.1 mmol/L [place] Sodium [Moles/Vol] 133 mmol/L Low 135 - 145 mmol/L [place] Urea nitrogen [Mass/Vol] 14 mg/dL 7 - 20 mg/dL [place] Test Performed by [facility], [address] [place] [address], [place] [address] [place], [place] CBC auto differentialon Absolute Baso # 0.0 10*3/uL 0 - 0.2 10*3/uL [place] Absolute Neut # 5.9 10*3/uL 1.8 - 7 10*3/uL [place] Basophils/100 WBC (Bld) 0.3 % 0 - 2 % [place] Eosinophils (Bld) [#/Vol] 0.2 10*3/uL 0 - 0.5 10*3/uL [place] Eosinophils/100 WBC (Bld) 3.3 % 1 - 6 % [place] Erythrocyte distribution width (RBC) [Ratio] 15.0 % High 11.5 - 14.5 % [place] Granulocytes/100 WBC (Bld) 82.5 % High 40 - 80 % [place] Hematocrit (Bld) [Volume fraction] 33.4 % Low 40 - 52 % [place] Hemoglobin (Bld) [Mass/Vol] 10.9 g/dL Low 13 - 18 g/dL [place] Interpretation and review of laboratory results Abnormal [place] Lymphocytes (Bld) [#/Vol] 0.5 10*3/uL Low 1 - 4.3 10*3/uL [place] Lymphocytes/100 WBC (Bld) 7.5 % Low 20 - 40 % [place] MCH (RBC) [Entitic mass] 28.9 pg 26 - 34 pg [place] MCHC (RBC) [Mass/Vol] 32.8 % 32 - 36 % [place], [place] MCV (RBC) [Entitic vol] 88.2 fL 80 - 98 fL [place] Monocytes (Bld) [#/Vol] 0.5 10*3/uL 0 - 0.8 10*3/uL [place] Monocytes/100 WBC (Bld) 6.4 % 2 - 10 % [place] Platelet mean volume (Bld) [Entitic vol] 6.6 fL Low 7.4 - 10.4 fL [place] Platelets (Bld) [#/Vol] 355 10*3/uL 140 - 440 10*3/uL [place] RBC (Bld) [#/Vol] 3.78 10*6/uL Low 4.4 - 5.9 10*6/uL [place] WBC (Bld) [#/Vol] 7.2 10*3/uL 3.6 - 10.7 10*3/uL [place] Test Performed by [facility], [address] [place] [id number] [place] [address] CR Chest Portableon 03-03-19 CR Chest Portable Patient Name: OSWALDO CORLEY Diagnostic Radiology ACCESSION EXAM DATE/TIME PROCEDURE ORDERING PROVIDER [id number] 03/03/2020 13:40 EST CR Chest Portable BRIDGETTE DUNN MATTHEW R. CPT code 46862 Reason For Exam (CR Chest Portable) S/P [...] Dictated: 03/03/2020 2:42 pm Dictating Physician: MD ROSELYN, DENISE Signed Date and Time: 03/03/2020 2:43 pm Signed by: MD DEMPSEY KRIKOR Transcribed Date and Time: 03/03/2020 2:42 Normal [facility] CR Chest Portable [id number] Radiology ACCESSION EXAM DATE/TIME PROCEDURE ORDERING PROVIDER [id number] 03/03/2020 05:48 EST CR Chest Portable MD SULLIVAN MAZEN E CPT code 19748 Reason For Exam (CR Chest Portable) sob [...] Impression: As above. Report Dictated on Workstation: [id number] Final Dictated: 03/03/2020 7:53 am Dictating Physician: MD DEMPSEY KRIKOR Signed Date and Time: 03/03/2020 7:54 am Signed by: MD DEMPSEY KRIKOR Transcribed Date and Time: 03/03/2020 7:53 Normal [facility] Hemogram w/ Autodiffon 03-03 Abs Baso Cnt 0.0 10*3/uL Normal 0.0-0.2 [facility] Comment on above: Performed By: #### B MP3, HEMDF #### [address] [address] Abs Neutrophile Cnt 5.9 10*3/uL Normal 1.8-7.0 [facility] Comment on above: Performed By: #### B MP3, HEMDF #### [address] [address] Basophils/100 WBC (Bld) 0.3 % Normal 0.0-2.0 [facility] Comment on above: Performed By: #### B MP3, HEMDF #### [address] [place] [address] Eosinophils (Bld) [#/Vol] 0.2 10*3/uL Normal 0.0-0.5 [facility] Comment on above: Performed By: #### B MP3, HEMDF #### [facility] [address] [place] [address] Eosinophils/100 WBC (Bld) 3.3 % Normal 1.0-6.0 [facility] Comment on above: Performed By: #### B MP3, HEMDF #### [facility] [address] [place] [address] Erythrocyte distribution width (RBC) [Ratio] 15.0 % High 11.5-14.5 [facility] Comment on above: Performed By: #### B MP3, HEMDF #### [address] [address] [place] [address] Granulocytes/100 WBC (Bld) 82.5 % High 40.0-80.0 [facility] Comment on above: Performed By: #### B MP3, HEMDF #### [address] [address] [place] [address] Hematocrit (Bld) [Volume fraction] 33.4 % Low 40.0-52.0 [facility] Comment on above: Performed By: #### B MP3, HEMDF #### [facility] [address] [place] [address] Hemoglobin (Bld) [Mass/Vol] 10.9 g/dL Low 13.0-18.0 [facility] Comment on above: Performed By: #### B MP3, HEMDF #### [facility] [address] [place] [address] Lymphocytes (Bld) [#/Vol] 0.5 10*3/uL Low 1.0-4.3 [facility] Comment on above: Performed By: #### B MP3, HEMDF #### [facility] [address] [place] [address] Lymphocytes/100 WBC (Bld) 7.5 % Low 20.0-40.0 [facility] Comment on above: Performed By: #### B MP3, HEMDF #### [facility] [address] [place], [place] MCH (RBC) [Entitic mass] 28.9 pg Normal 26.0-34.0 [facility] Comment on above: Performed By: #### B MP3, HEMDF #### [facility] [address] [place], [place] MCHC (RBC) [Mass/Vol] 32.8 % Normal 32.0-36.0 [facility] Comment on above: Performed By: #### B MP3, HEMDF #### [address] [address] [address] [place], [place] MCV (RBC) [Entitic vol] 88.2 fL Normal 80.0-98.0 [facility] Comment on above: Performed By: #### B MP3, HEMDF #### [address] [address] [address] [place], [place] Monocytes (Bld) [#/Vol] 0.5 10*3/uL Normal 0.0-0.8 [facility] Comment on above: Performed By: #### B MP3, HEMDF #### [address] [address] [address] [place], [place] Monocytes/100 WBC (Bld) 6.4 % Normal 2.0-10.0 [facility] Comment on above: Performed By: #### B MP3, HEMDF #### [facility] [address] [place], [place] Platelet mean volume (Bld) [Entitic vol] 6.6 fL Low 7.4-10.4 [facility] Comment on above: Performed By: #### B MP3, HEMDF #### [address] [address] [address] [place], [place] Platelets (Bld) [#/Vol] 355 10*3/uL Normal 140-440 [facility] Comment on above: Performed By: #### B MP3, HEMDF #### [address] [address] [address] [place], [place] RBC (Bld) [#/Vol] 3.78 10*6/uL Low 4.40-5.90 [facility] Comment on above: Performed By: #### B MP3, HEMDF #### [facility] [address] [place] [address] WBC (Bld) [#/Vol] 7.2 10*3/uL Normal 3.6-10.7 [facility] Comment on above: Performed By: #### B MP3, HEMDF #### [facility] [address] [place] [address] XR CHEST PORTABLEon 03-03-19 Patient Name: OSWALDO CORLEY Diagnostic Radiology ACCESSION EXAM DATE/TIME PROCEDURE ORDERING PROVIDER [id number] 03/03/2020 13:40 EST CR Chest Portable STEVEN BRIDGETTE JUAN CARLOS CesarLaly CPT code 13414 Reason For Exam (CR Chest Portable) S/P [...] hemidiaphragm. Follow-up recommended. Report Dictated on Workstation: [id number] --- Final --- Dictated: 03/03/2020 2:42 pm Dictating Physician: MD DEMPSEY KRIKOR Signed Date and Time: 03/03/2020 2:43 pm Signed by: MD DEMPSEY KRIKOR Transcribed Date and Time: 03/03/2020 2:42 [facility] [place], [place], [facility] Incoming Radiology Results From [facility] - 03/03/2020 2:44 PM EST Patient Name: OSWALDO CORLEY Diagnostic Radiology ACCESSION EXAM DATE/TIME PROCEDURE ORDERING PROVIDER [id number] 03/03/2020 13:40 EST CR Chest Portable BRIDGETTE DUNN MATTHEW R. CPT code 43720 Reason For Exam (CR Chest Portable) S/P [...] hemidiaphragm. Follow-up recommended. Report Dictated on Workstation: [id number] --- Final --- Dictated: 03/03/2020 2:42 pm Dictating Physician: MD DEMPSEY KRIKOR Signed Date and Time: 03/03/2020 2:43 pm Signed by: MD DEMPSEY KRIKOR Transcribed Date and Time: 03/03/2020 2:42 [place] Patient Name: [id number] Radiology ACCESSION EXAM DATE/TIME PROCEDURE ORDERING PROVIDER [id number] 03/03/2020 05:48 EST CR Chest Portable MD SULLIVAN MAZEN E CPT code 72586 Reason For Exam (CR Chest Portable) sob [...] Impression: As above. Report Dictated on Workstation: [id number] --- Final --- Dictated: 03/03/2020 7:53 am Dictating Physician: MD DEMPSEY KRIKOR Signed Date and Time: 03/03/2020 7:54 am Signed by: MD DEMPSEY KRIKOR Transcribed Date and Time: 03/03/2020 7:53 [place], [place] [facility] Incoming Radiology Results From [facility] - 03/03/2020 7:55 AM EST Patient Name: [facility] COR[id number] Diagnostic Radiology ACCESSION EXAM DATE/TIME PROCEDURE ORDERING PROVIDER [id number] 03/03/2020 05:48 EST CR Chest Portable MD SULLIVAN MAZEN E CPT code 60274 Reason For Exam (CR Chest Portable) sob [...] Impression: As above. Report Dictated on Workstation: [id number] --- Final --- Dictated: 03/03/2020 7:53 am Dictating Physician: MD DEMPSEY KRIKOR Signed Date and Time: 03/03/2020 7:54 am Signed by: MD DEMPSEY KRIKOR Transcribed Date and Time: 03/03/2020 7:53 [facility] [place] Basic Metabolic Panelon Calcium [Mass/Vol] 8.3 mg/dL Low 8.4-10.4 [facility] Comment on above: Performed By: #### B MP3, HEMDF #### [facility] [address] [place] [address] Glucose [Mass/Vol] 104 mg/dL High 70-100 [facility] Comment on above: Performed By: #### B MP3, HEMDF #### [facility] [address] [place] [address] Urea nitrogen [Mass/Vol] 13 mg/dL Normal 7-20 [facility] Comment on above: Performed By: #### B MP3, HEMDF #### [address] [place] [address] Anion gap [Moles/Vol] 4 Normal [facility] Comment on above: Performed By: #### B MP3, HEMDF #### [facility] [address] [place], [place] CO2 [Moles/Vol] 29 mmol/L Normal 22-30 [facility] Comment on above: Performed By: #### B MP3, HEMDF #### [facility] [address] [place], [place] Creatinine [Mass/Vol] 0.67 mg/dL Normal 0.52-1.25 [facility] Comment on above: Performed By: #### B MP3, HEMDF #### [facility] [address] [place], [place] GFR/1.73 sq M predicted among blacks MDRD (S/P/Bld) [Vol rate/Area] mL/min/{1.73_m2} Normal >60 [facility] Comment on above: Performed By: #### B MP3, HEMDF #### [facility] [address] [place], [place] GFR/1.73 sq M predicted among non-blacks MDRD (S/P/Bld) [Vol rate/Area] mL/min/{1.73_m2} Normal >60 [facility] Comment on above: Result Comment: KDIG O [...] Performed By: #### B MP3, HEMDF #### [facility] [address] [place], [place] Potassium [Moles/Vol] 4.1 mmol/L Normal 3.5-5.1 [facility] Comment on above: Performed By: #### B MP3, HEMDF #### [facility] [address] [place] Chloride [Moles/Vol] 101 mmol/L Normal 98-107 [facility] Comment on above: Performed By: #### B MP3, HEMDF #### [facility] [address] [place], [place] Sodium [Moles/Vol] 134 mmol/L Low 135-145 [facility] Comment on above: Performed By: #### B MP3, HEMDF #### [facility] [address] [place] Anion gap [Moles/Vol] 4 mmol/L [place], [place] Calcium [Mass/Vol] 8.3 mg/dL Low 8.4 - 10. 4 mg/dL [place] Chloride [Moles/Vol] 101 mmol/L 98 - 10 7 mmol/L [place] CO2 [Moles/Vol] 29 mmol/L 22 - 30 mmol/L [place] Creatinine [Mass/Vol] 0.67 mg/dL 0.52 - 1.25 mg/dL [place] EGFR IF NonAfrican Lebanese >90.0 >60 mL/min [place] Comment on above: KDIGO guidelines pro [...] MDRD (S/P/Bld) [Vol rate/Area] mL/min/{1.73_m2} >60 mL/min [place] Glucose [Mass/Vol] 104 mg/dL High 70 - 100 mg/dL [place] Interpretation and review of laboratory results Abnormal [place] Potassium [Moles/Vol] 4.1 mmol/L 3.5 - 5.1 mmol/L [place] Sodium [Moles/Vol] 134 mmol/L Low 135 - 145 mmol/L [place] Urea nitrogen [Mass/Vol] 13 mg/dL 7 - 20 mg/dL [place] Test Performed by [address] [address] [place], [place] CBC auto differentialon 0 Absolute Baso # 0.0 10*3/uL 0 - 0.2 10*3/uL [place] Absolute Neut # 5.9 10*3/uL 1.8 - 7 10*3/uL [place] Basophils/100 WBC (Bld) 0.5 % 0 - 2 % [place] Eosinophils (Bld) [#/Vol] 0.3 10*3/uL 0 - 0.5 10*3/uL [place] Eosinophils/100 WBC (Bld) 3.6 % 1 - 6 % [place] Erythrocyte distribution width (RBC) [Ratio] 14.9 % High 11.5 - 14.5 % [place] Granulocytes/100 WBC (Bld) 82.5 % High 40 - 80 % [place] Hematocrit (Bld) [Volume fraction] 32.9 % Low 40 - 52 % [place] Hemoglobin (Bld) [Mass/Vol] 10.6 g/dL Low 13 - 18 g/dL [place] Interpretation and review of laboratory results Abnormal [place] Lymphocytes (Bld) [#/Vol] 0.4 10*3/uL Low 1 - 4.3 10*3/uL [place] Lymphocytes/100 WBC (Bld) 6.3 % Low 20 - 40 % [place] MCH (RBC) [Entitic mass] 28.9 pg 26 - 34 pg [place] MCHC (RBC) [Mass/Vol] 32.3 % 32 - 36 % [place] MCV (RBC) [Entitic vol] 89.4 fL 80 - 98 fL [place] Monocytes (Bld) [#/Vol] 0.5 10*3/uL 0 - 0.8 10*3/uL [place] Monocytes/100 WBC (Bld) 7.1 % 2 - 10 % [place] Platelet mean volume (Bld) [Entitic vol] 6.6 fL Low 7.4 - 10.4 fL [place] Platelets (Bld) [#/Vol] 316 10*3/uL 140 - 440 10*3/uL [place] RBC (Bld) [#/Vol] 3.68 10*6/uL Low 4.4 - 5.9 10*6/uL [place] WBC (Bld) [#/Vol] 7.1 10*3/uL 3.6 - 10.7 10*3/uL [place] Test Performed by [facility], [address] [place] [id number] [place] [address] CR Chest Portableon 03-02-19 21 CR Chest Portable Patient Name: OSWALDO CORLEY Diagnostic Radiology ACCESSION EXAM DATE/TIME PROCEDURE ORDERING PROVIDER [id number] 03/02/2020 06:22 EST CR Chest Portable MD NATE, RODRICK Davila CPT code 29838 Reason For Exam (CR Chest Portable) sob [...] Transcribed Date and Time: 03/02/2020 8:43 Normal [facility] Hemogram w/ Autodiffon 03-02 Abs Baso Cnt 0.0 10*3/uL Normal 0.0-0.2 [facility] Comment on above: Performed By: #### Sana MP3, HEMDF #### [address] [address] [place] [address] Abs Neutrophile Cnt 5.9 10*3/uL Normal 1.8-7.0 [facility] Comment on above: Performed By: #### Sana MP3, HEMDF #### [address] [address] Basophils/100 WBC (Bld) 0.5 % Normal 0.0-2.0 [facility] Comment on above: Performed By: #### Sana MP3, HEMDF #### [address] [address] [place] [address] Eosinophils (Bld) [#/Vol] 0.3 10*3/uL Normal 0.0-0.5 [facility] Comment on above: Performed By: #### Sana MP3, HEMDF #### [address] [id number] Eosinophils/100 WBC (Bld) 3.6 % Normal 1.0-6.0 [facility] Comment on above: Performed By: #### Sana MP3, HEMDF #### [address] [address] [place], [place] Erythrocyte distribution width (RBC) [Ratio] 14.9 % High 11.5-14.5 [facility] Comment on above: Performed By: #### B MP3, HEMDF #### [address] [address] [address] [place], [place] Granulocytes/100 WBC (Bld) 82.5 % High 40.0-80.0 [facility] Comment on above: Performed By: #### B MP3, HEMDF #### [address] [address] [address] [place], [place] Hematocrit (Bld) [Volume fraction] 32.9 % Low 40.0-52.0 [facility] Comment on above: Performed By: #### B MP3, HEMDF #### [address] [address] [address] [place], [place] Hemoglobin (Bld) [Mass/Vol] 10.6 g/dL Low 13.0-18.0 [facility] Comment on above: Performed By: #### B MP3, HEMDF #### [address] [address] [address] [place], [place] Lymphocytes (Bld) [#/Vol] 0.4 10*3/uL Low 1.0-4.3 [facility] Comment on above: Performed By: #### B MP3, HEMDF #### [address] [address] [place], [place] Lymphocytes/100 WBC (Bld) 6.3 % Low 20.0-40.0 [facility] Comment on above: Performed By: #### B MP3, HEMDF #### [address] [address] [address] [place], [place] MCH (RBC) [Entitic mass] 28.9 pg Normal 26.0-34.0 [facility] Comment on above: Performed By: #### B MP3, HEMDF #### [address] [address] [address] [place], [place] MCHC (RBC) [Mass/Vol] 32.3 % Normal 32.0-36.0 [facility] Comment on above: Performed By: #### B MP3, HEMDF #### [address] [place], [place] MCV (RBC) [Entitic vol] 89.4 fL Normal 80.0-98.0 [facility] Comment on above: Performed By: #### B MP3, HEMDF #### [address], [place] Monocytes (Bld) [#/Vol] 0.5 10*3/uL Normal 0.0-0.8 [facility] Comment on above: Performed By: #### B MP3, HEMDF #### [facility] [address], [place] Monocytes/100 WBC (Bld) 7.1 % Normal 2.0-10.0 [facility] Comment on above: Performed By: #### B MP3, HEMDF #### [facility] [address], [place] Platelet mean volume (Bld) [Entitic vol] 6.6 fL Low 7.4-10.4 [facility] Comment on above: Performed By: #### B MP3, HEMDF #### [facility] [address], [place] Platelets (Bld) [#/Vol] 316 10*3/uL Normal 140-440 [facility] Comment on above: Performed By: #### B MP3, HEMDF #### [facility] [address], [place] RBC (Bld) [#/Vol] 3.68 10*6/uL Low 4.40-5.90 [facility] Comment on above: Performed By: #### B MP3, HEMDF #### [facility] [address], [place] WBC (Bld) [#/Vol] 7.1 10*3/uL Normal 3.6-10.7 [facility] Comment on above: Performed By: #### B MP3, HEMDF #### [facility] [address], [place] XR CHEST PORTABLEon 03-02-19 Patient Name: OSWALDO CORLEY Diagnostic Radiology ACCESSION EXAM DATE/TIME PROCEDURE ORDERING PROVIDER [id number] 03/02/2020 06:22 EST CR Chest Portable MD SULLIVAN MAZEN E CPT code 88973 Reason For Exam (CR Chest Portable) sob [...] I Transcribed Date and Time: 03/02/2020 8:43 [place], [place], [facility] Incoming Radiology Results From [facility] - 03/02/2020 8:46 AM EST Patient Name: OSWALDO CORLEY Diagnostic Radiology ACCESSION EXAM DATE/TIME PROCEDURE ORDERING PROVIDER [id number] 03/02/2020 06:22 EST CR Chest Portable MD SULLIVAN MAZEN E CPT code 69981 Reason For Exam (CR Chest Portable) sob [...] I Transcribed Date and Time: 03/02/2020 8:43 [facility], [place] Basic Metabolic Panelon 12-3 Anion gap [Moles/Vol] 2 Normal [facility] Comment on above: Performed By: #### H EMDF, BMP3 ####[address] [place] [address] Calcium [Mass/Vol] 8.0 mg/dL Low 8.4-10.4 [facility] Comment on above: Performed By: #### H EMDF, BMP3 ####[address] [place] [address] CO2 [Moles/Vol] 30 mmol/L Normal 22-30 [facility] Comment on above: Performed By: #### H EMDF, BMP3 ####[address] [place] [address] Creatinine [Mass/Vol] 0.71 mg/dL Normal 0.52-1.25 [facility] Comment on above: Performed By: #### H EMDF, BMP3 ####[address] [place] [address] GFR/1.73 sq M predicted among blacks MDRD (S/P/Bld) [Vol rate/Area] mL/min/{1.73_m2} Normal >60 [facility] Comment on above: Performed By: #### H EMDF, BMP3 ####[address] [place] [address] GFR/1.73 sq M predicted among non-blacks MDRD (S/P/Bld) [Vol rate/Area] mL/min/{1.73_m2} Normal >60 [facility] Comment on above: Result Comment: KDIG O [...] secretion. Performed By: #### H IJEOMA BMP3 ####[address] [place], [place] Glucose [Mass/Vol] 104 mg/dL High 70-100 [facility] Comment on above: Performed By: #### H IJEOMA BMP3 ####[address] [place], [place] Urea nitrogen [Mass/Vol] 15 mg/dL Normal 7-20 [facility] Comment on above: Performed By: #### H IJEOMA BMP3 ####[address] [place], [place] Chloride [Moles/Vol] 100 mmol/L Normal 98-107 [facility] Comment on above: Performed By: #### H IJEOMA BMP3 ####[address] [place], [place] Potassium [Moles/Vol] 3.6 mmol/L Normal 3.5-5.1 [facility] Comment on above: Performed By: #### H IJEOMA BMP3 ####[address] [place], [place] Sodium [Moles/Vol] 133 mmol/L Low 135-145 [facility] Comment on above: Performed By: #### H IJEOMA BMP3 ####[address] [place], [place] Anion gap [Moles/Vol] 2 mmol/L [facility], [place] Calcium [Mass/Vol] 8.0 mg/dL Low 8.4 - 10. 4 mg/dL [place], [place] Chloride [Moles/Vol] 100 mmol/L 98 - 10 7 mmol/L [place] CO2 [Moles/Vol] 30 mmol/L 22 - 30 mmol/L [place] Creatinine [Mass/Vol] 0.71 mg/dL 0.52 - 1.25 mg/dL [place] EGFR IF NonAfrican Lebanese >90.0 >60 mL/min [place], [place] Comment on above: KDIGO guidelines pro [...] MDRD (S/P/Bld) [Vol rate/Area] mL/min/{1.73_m2} >60 mL/min [place] Glucose [Mass/Vol] 104 mg/dL High 70 - 100 mg/dL [place] Interpretation and review of laboratory results Abnormal [place] Potassium [Moles/Vol] 3.6 mmol/L 3.5 - 5.1 mmol/L [place] Sodium [Moles/Vol] 133 mmol/L Low 135 - 145 mmol/L [place] Urea nitrogen [Mass/Vol] 15 mg/dL 7 - 20 mg/dL [place] Test Performed by [facility], [address] [place] [address] [place], [place] CBC auto differentialon 12-3 Absolute Baso # 0.0 10*3/uL 0 - 0.2 10*3/uL [place] Absolute Neut # 5.2 10*3/uL 1.8 - 7 10*3/uL [place] Basophils/100 WBC (Bld) 0.5 % 0 - 2 % [place] Eosinophils (Bld) [#/Vol] 0.2 10*3/uL 0 - 0.5 10*3/uL [place] Eosinophils/100 WBC (Bld) 3.1 % 1 - 6 % [place] Erythrocyte distribution width (RBC) [Ratio] 14.7 % High 11.5 - 14.5 % [place] Granulocytes/100 WBC (Bld) 81.2 % High 40 - 80 % [place] Hematocrit (Bld) [Volume fraction] 33.1 % Low 40 - 52 % [place] Hemoglobin (Bld) [Mass/Vol] 10.8 g/dL Low 13 - 18 g/dL [place] Interpretation and review of laboratory results Abnormal [place] Lymphocytes (Bld) [#/Vol] 0.5 10*3/uL Low 1 - 4.3 10*3/uL [place] Lymphocytes/100 WBC (Bld) 8.3 % Low 20 - 40 % [place] MCH (RBC) [Entitic mass] 28.8 pg 26 - 34 pg [place] MCHC (RBC) [Mass/Vol] 32.6 % 32 - 36 % [place], [place] MCV (RBC) [Entitic vol] 88.4 fL 80 - 98 fL [place] Monocytes (Bld) [#/Vol] 0.4 10*3/uL 0 - 0.8 10*3/uL [place] Monocytes/100 WBC (Bld) 6.9 % 2 - 10 % [place] Platelet mean volume (Bld) [Entitic vol] 6.7 fL Low 7.4 - 10.4 fL [place] Platelets (Bld) [#/Vol] 295 10*3/uL 140 - 440 10*3/uL [place] RBC (Bld) [#/Vol] 3.75 10*6/uL Low 4.4 - 5.9 10*6/uL [place] WBC (Bld) [#/Vol] 6.4 10*3/uL 3.6 - 10.7 10*3/uL [place] Test Performed by [facility], [address] [place] [address] [place], [place] CR Chest Portableon 03-01-20 20 CR Chest Portable Patient Name: OSWALDO CORLEY Diagnostic Radiology ACCESSION EXAM DATE/TIME PROCEDURE ORDERING PROVIDER [id number] 03/01/2020 15:25 EST CR Chest Portable [id number] -DANIELA WALLS CPT code 21565 Reason For Exam (CR Chest Portable) chest [...] to the earlier study. Report Dictated on Final Dictated: 03/01/2020 3:22 pm Dictating Physician: MD ROBERSON RISA Signed Date and Time: 03/01/2020 3:23 pm Signed by: MD ROBERSON RISA Transcribed Date and Time: 03/01/2020 3:22 Normal [facility] CR Chest Portable Patient Name: OSWALDO CORLEY Diagnostic Radiology ACCESSION EXAM DATE/TIME PROCEDURE ORDERING PROVIDER [id number] 03/01/2020 04:31 EST CR Chest Portable MD SULLIVAN MAZEN E CPT code 82140 Reason For Exam (CR Chest Portable) sob [...] left lung base. Report Dictated on Workstation: [email or web address] Final Dictated: 03/01/2020 5:07 am Dictating Physician: MD ESPINO JEFFREY Signed Date and Time: 03/01/2020 5:22 am Signed by: MD ESPINO JEFFREY Transcribed Date and Time: 03/01/2020 5:07 Normal [facility] Hemogram w/ Autodiffon 03-01 Abs Baso Cnt 0.0 10*3/uL Normal 0.0-0.2 [facility] Comment on above: Performed By: #### H IJEOMA BMP3 ####[address] [place] [address] Abs Neutrophile Cnt 5.2 10*3/uL Normal 1.8-7.0 [facility] Comment on above: Performed By: #### H IJEOMA BMP3 ####[address] [place] [address] Basophils/100 WBC (Bld) 0.5 % Normal 0.0-2.0 [facility] Comment on above: Performed By: #### H IJEOMA BMP3 ####[address] [place] [address] Eosinophils (Bld) [#/Vol] 0.2 10*3/uL Normal 0.0-0.5 [facility] Comment on above: Performed By: #### H IJEOMA BMP3 ####[address] [place] [address] Eosinophils/100 WBC (Bld) 3.1 % Normal 1.0-6.0 [facility] Comment on above: Performed By: #### H EMDF, BMP3 ####[address] Erythrocyte distribution width (RBC) [Ratio] 14.7 % High 11.5-14.5 [facility] Comment on above: Performed By: #### H TRICEF, BMP3 ####[address] Granulocytes/100 WBC (Bld) 81.2 % High 40.0-80.0 [facility] Comment on above: Performed By: #### H IJEOMA BMP3 ####[address] Hematocrit (Bld) [Volume fraction] 33.1 % Low 40.0-52.0 [facility] Comment on above: Performed By: #### H TRICEF, BMP3 ####[address] Hemoglobin (Bld) [Mass/Vol] 10.8 g/dL Low 13.0-18.0 [facility] Comment on above: Performed By: #### H IJEOMA BMP3 ####[address] Lymphocytes (Bld) [#/Vol] 0.5 10*3/uL Low 1.0-4.3 [facility] Comment on above: Performed By: #### H EMDF, BMP3 ####[address] Lymphocytes/100 WBC (Bld) 8.3 % Low 20.0-40.0 [facility] Comment on above: Performed By: #### H EMDF BMP3 ####[address] MCH (RBC) [Entitic mass] 28.8 pg Normal 26.0-34.0 [facility] Comment on above: Performed By: #### H EMDF, BMP3 ####[address] MCHC (RBC) [Mass/Vol] 32.6 % Normal 32.0-36.0 [facility] Comment on above: Performed By: #### H IJEOMA BMP3 ####[address] MCV (RBC) [Entitic vol] 88.4 fL Normal 80.0-98.0 [facility] Comment on above: Performed By: #### H IJEOMA BMP3 ####[address] Monocytes (Bld) [#/Vol] 0.4 10*3/uL Normal 0.0-0.8 [facility] Comment on above: Performed By: #### H IJEOMA BMP3 ####[address] Monocytes/100 WBC (Bld) 6.9 % Normal 2.0-10.0 [facility] Comment on above: Performed By: #### H IJEOMA BMP3 ####[address] Platelet mean volume (Bld) [Entitic vol] 6.7 fL Low 7.4-10.4 [facility] Comment on above: Performed By: #### H IJEOMA BMP3 ####[address] Platelets (Bld) [#/Vol] 295 10*3/uL Normal 140-440 [facility] Comment on above: Performed By: #### H IJEOMA BMP3 ####[address] RBC (Bld) [#/Vol] 3.75 10*6/uL Low 4.40-5.90 [facility] Comment on above: Performed By: #### H EMDYuri BMP3 ####[address] WBC (Bld) [#/Vol] 6.4 10*3/uL Normal 3.6-10.7 [facility] Comment on above: Performed By: #### H EMDYuri BMP3 ####[facility] [place] [address] XR CHEST PORTABLEon 03-01-20 Patient Name: OSWALDO CORLEY Diagnostic Radiology ACCESSION EXAM DATE/TIME PROCEDURE ORDERING PROVIDER [id number] 03/01/2020 15:25 EST CR Chest Portable [id number] -DANIELA WALLS CPT code 75406 Reason For Exam (CR Chest Portable) chest [...] RISA Transcribed Date and Time: 03/01/2020 3:22 [facility], [facility] Incoming Radiology Results From [facility] - 03/01/2020 3:25 PM EST Patient Name: OSWALDO CORLEY Diagnostic Radiology ACCESSION EXAM DATE/TIME PROCEDURE ORDERING PROVIDER [id number] 03/01/2020 15:25 EST CR Chest Portable [id number] DANIELA TELLEZ CPT code 89904 Reason For Exam (CR Chest Portable) chest [...] the earlier study. Report Dictated on Workstation: [email or web address] --- Final --- Dictated: 03/01/2020 3:22 pm Dictating Physician: MD ROBERSON RISA Signed Date and Time: 03/01/2020 3:23 pm Signed by: MD ROBERSON RISA Transcribed Date and Time: 03/01/2020 3:22 [place], [place] Patient Name: OSWALDO ALANIZ Diagnostic Radiology ACCESSION EXAM DATE/TIME PROCEDURE ORDERING PROVIDER [id number] 03/01/2020 04:31 EST CR Chest Portable MD SULLIVAN MAZEN E CPT code 74573 Reason For Exam (CR Chest Portable) sob [...] lung base. Report Dictated on Workstation: [facility] --- Final --- Dictated: 03/01/2020 5:07 am Dictating Physician: MD ESPINO JEFFREY Signed Date and Time: 03/01/2020 5:22 am Signed by: MD ESPINO JEFFREY Transcribed Date and Time: 03/01/2020 5:07 [place], [place], [facility] Incoming Radiology Results From [facility] - 03/01/2020 5:23 AM EST Patient Name: OSWALDO CORLEY Diagnostic Radiology ACCESSION EXAM DATE/TIME PROCEDURE ORDERING PROVIDER [id number] 03/01/2020 04:31 EST CR Chest Portable MD SULLIVAN MAZEN E CPT code 16322 Reason For Exam (CR Chest Portable) sob [...] left lung base. Report Dictated on Workstation: [id number] --- Final --- Dictated: 03/01/2020 5:07 am Dictating Physician: MD ESPINO JEFFREY Signed Date and Time: 03/01/2020 5:22 am Signed by: MD ESPINO JEFFREY Transcribed Date and Time: 03/01/2020 5:07 [place], [place] Basic Metabolic Panelon 12-3 Calcium [Mass/Vol] 8.2 mg/dL Low 8.4-10.4 [facility] Comment on above: Performed By: #### B MP3, HEMDF #### [facility] [address], [place] Anion gap [Moles/Vol] 5 Normal [facility] Comment on above: Performed By: #### B MP3, HEMDF #### [facility] [address], [place] CO2 [Moles/Vol] 30 mmol/L Normal 22-30 [facility] Comment on above: Performed By: #### B MP3, HEMDF #### [facility] [address], [place] Creatinine [Mass/Vol] 0.69 mg/dL Normal 0.52-1.25 [facility] Comment on above: Performed By: #### B MP3, HEMDF #### [facility] [address], [place] GFR/1.73 sq M predicted among blacks MDRD (S/P/Bld) [Vol rate/Area] mL/min/{1.73_m2} Normal >60 [facility] Comment on above: Performed By: #### B MP3, HEMDF #### [facility] [address], [place] GFR/1.73 sq M predicted among non-blacks MDRD (S/P/Bld) [Vol rate/Area] mL/min/{1.73_m2} Normal >60 [facility] Comment on above: Result Comment: KDIG O [...] Performed By: #### B MP3, HEMDF #### [facility] [address], [place] Glucose [Mass/Vol] 109 mg/dL High 70-100 [facility] Comment on above: Performed By: #### B MP3, HEMDF #### [address] [address] [place], [place] Urea nitrogen [Mass/Vol] 17 mg/dL Normal 7-20 [facility] Comment on above: Performed By: #### B MP3, HEMDF #### [address], [place] Chloride [Moles/Vol] 99 mmol/L Normal 98-107 [facility] Comment on above: Performed By: #### B MP3, HEMDF #### [address] [place], [place] Potassium [Moles/Vol] 3.9 mmol/L Normal 3.5-5.1 [facility] Comment on above: Performed By: #### B MP3, HEMDF #### [address] [address] [place], [place] Sodium [Moles/Vol] 134 mmol/L Low 135-145 [facility] Comment on above: Performed By: #### B MP3, HEMDF #### [facility] [address] [place] [address] Anion gap [Moles/Vol] 5 mmol/L [place], [place] Calcium [Mass/Vol] 8.2 mg/dL Low 8.4 - 10. 4 mg/dL [place] Chloride [Moles/Vol] 99 mmol/L 98 - 10 7 mmol/L [place] CO2 [Moles/Vol] 30 mmol/L 22 - 30 mmol/L [place] Creatinine [Mass/Vol] 0.69 mg/dL 0.52 - 1.25 mg/dL [place] EGFR IF NonAfrican Lebanese >90.0 >60 mL/min [place] Comment on above: KDIGO guidelines pro [...] MDRD (S/P/Bld) [Vol rate/Area] mL/min/{1.73_m2} >60 mL/min [place] Glucose [Mass/Vol] 109 mg/dL High 70 - 100 mg/dL [place] Interpretation and review of laboratory results Abnormal [place] Potassium [Moles/Vol] 3.9 mmol/L 3.5 - 5.1 mmol/L [place] Sodium [Moles/Vol] 134 mmol/L Low 135 - 145 mmol/L [place] Urea nitrogen [Mass/Vol] 17 mg/dL 7 - 20 mg/dL [place] Test Performed by [facility], [address] [place] [address] [place] CBC auto differentialon 12-3 Absolute Baso # 0.0 10*3/uL 0 - 0.2 10*3/uL [place] Absolute Neut # 6.4 10*3/uL 1.8 - 7 10*3/uL [place] Basophils/100 WBC (Bld) 0.1 % 0 - 2 % [place] Eosinophils (Bld) [#/Vol] 0.2 10*3/uL 0 - 0.5 10*3/uL [place] Eosinophils/100 WBC (Bld) 2.2 % 1 - 6 % [place] Erythrocyte distribution width (RBC) [Ratio] 14.8 % High 11.5 - 14.5 % [place] Granulocytes/100 WBC (Bld) 83.2 % High 40 - 80 % [place] Hematocrit (Bld) [Volume fraction] 32.5 % Low 40 - 52 % [place] Hemoglobin (Bld) [Mass/Vol] 10.7 g/dL Low 13 - 18 g/dL [place] Interpretation and review of laboratory results Abnormal [place] Lymphocytes (Bld) [#/Vol] 0.5 10*3/uL Low 1 - 4.3 10*3/uL [place] Lymphocytes/100 WBC (Bld) 6.8 % Low 20 - 40 % [place] MCH (RBC) [Entitic mass] 29.3 pg 26 - 34 pg [place] MCHC (RBC) [Mass/Vol] 33.0 % 32 - 36 % [place] MCV (RBC) [Entitic vol] 88.7 fL 80 - 98 fL [place] Monocytes (Bld) [#/Vol] 0.6 10*3/uL 0 - 0.8 10*3/uL [place] Monocytes/100 WBC (Bld) 7.7 % 2 - 10 % [place] Platelet mean volume (Bld) [Entitic vol] 6.7 fL Low 7.4 - 10.4 fL [place] Platelets (Bld) [#/Vol] 299 10*3/uL 140 - 440 10*3/uL [place] RBC (Bld) [#/Vol] 3.66 10*6/uL Low 4.4 - 5.9 10*6/uL [place] WBC (Bld) [#/Vol] 7.7 10*3/uL 3.6 - 10.7 10*3/uL [place] Test Performed by [id number] [place] [address] CR Chest Portableon 02-29-20 20 CR Chest Portable Patient Name: OSWALDO CORLEY Diagnostic Radiology ACCESSION EXAM DATE/TIME PROCEDURE ORDERING PROVIDER [id number] 02/29/2020 05:57 EST CR Chest Portable MD SULLIVAN MAZEN E CPT code 20024 Reason For Exam (CR Chest Portable) sob [...] Transcribed Date and Time: 02/29/2020 7:24 Normal [facility] Hemogram w/ Autodiffon 02-28 Abs Baso Cnt 0.0 10*3/uL Normal 0.0-0.2 [facility] Comment on above: Performed By: #### B MP3, HEMDF #### [facility] [address], [place] Abs Neutrophile Cnt 6.4 10*3/uL Normal 1.8-7.0 [facility] Comment on above: Performed By: #### B MP3, HEMDF #### [facility] [address], [place] Basophils/100 WBC (Bld) 0.1 % Normal 0.0-2.0 [facility] Comment on above: Performed By: #### B MP3, HEMDF #### [address] [place], [place] Eosinophils (Bld) [#/Vol] 0.2 10*3/uL Normal 0.0-0.5 [facility] Comment on above: Performed By: #### B MP3, HEMDF #### [address] [place] Eosinophils/100 WBC (Bld) 2.2 % Normal 1.0-6.0 [facility] Comment on above: Performed By: #### B MP3, HEMDF #### [address] [place] Erythrocyte distribution width (RBC) [Ratio] 14.8 % High 11.5-14.5 [facility] Comment on above: Performed By: #### B MP3, HEMDF #### [facility] [address], [place] Granulocytes/100 WBC (Bld) 83.2 % High 40.0-80.0 [facility] Comment on above: Performed By: #### B MP3, HEMDF #### [facility] [address], [place] Hematocrit (Bld) [Volume fraction] 32.5 % Low 40.0-52.0 [facility] Comment on above: Performed By: #### B MP3, HEMDF #### [address] [place] Hemoglobin (Bld) [Mass/Vol] 10.7 g/dL Low 13.0-18.0 [facility] Comment on above: Performed By: #### B MP3, HEMDF #### [address] [place], [place] Lymphocytes (Bld) [#/Vol] 0.5 10*3/uL Low 1.0-4.3 [facility] Comment on above: Performed By: #### B MP3, HEMDF #### [address] [place] Lymphocytes/100 WBC (Bld) 6.8 % Low 20.0-40.0 [facility] Comment on above: Performed By: #### B MP3, HEMDF #### [address] [place] MCH (RBC) [Entitic mass] 29.3 pg Normal 26.0-34.0 [facility] Comment on above: Performed By: #### B MP3, HEMDF #### [address] [place] MCHC (RBC) [Mass/Vol] 33.0 % Normal 32.0-36.0 [facility] Comment on above: Performed By: #### B MP3, HEMDF #### [address] [place] MCV (RBC) [Entitic vol] 88.7 fL Normal 80.0-98.0 [facility] Comment on above: Performed By: #### B MP3, HEMDF #### [address] [place] Monocytes (Bld) [#/Vol] 0.6 10*3/uL Normal 0.0-0.8 [facility] Comment on above: Performed By: #### B MP3, HEMDF #### [address] [place] Monocytes/100 WBC (Bld) 7.7 % Normal 2.0-10.0 [facility] Comment on above: Performed By: #### B MP3, HEMDF #### [address] [place] [address] Platelet mean volume (Bld) [Entitic vol] 6.7 fL Low 7.4-10.4 [facility] Comment on above: Performed By: #### B MP3, HEMDF #### [facility] [address] [place] [address] Platelets (Bld) [#/Vol] 299 10*3/uL Normal 140-440 [facility] Comment on above: Performed By: #### B MP3, HEMDF #### [facility] [address] [place] [address] RBC (Bld) [#/Vol] 3.66 10*6/uL Low 4.40-5.90 [facility] Comment on above: Performed By: #### B MP3, HEMDF #### [facility] [address] [place] [address] WBC (Bld) [#/Vol] 7.7 10*3/uL Normal 3.6-10.7 [facility] Comment on above: Performed By: #### B MP3, HEMDF #### [facility] [address], [place] XR CHEST PORTABLEon 02-29-20 [facility] Incoming Radiology Results From [facility] 02/29/2020 7:27 AM EST Patient Name: OSWALDO CORLEY Diagnostic Radiology ACCESSION EXAM DATE/TIME PROCEDURE ORDERING PROVIDER [id number] 02/29/2020 05:57 EST CR Chest Portable MD SULLIVAN MAZEN E CPT code 50311 Reason For Exam (CR Chest Portable) sob [...] DIANE Transcribed Date and Time: 02/29/2020 7:24 [place], [place] Patient [id number] ACCESSION EXAM DATE/TIME PROCEDURE ORDERING PROVIDER [id number] 02/29/2020 05:57 EST CR Chest Portable MD SULLIVAN MAZEN E CPT code 10650 Reason For Exam (CR Chest Portable) sob [...] DIANE Transcribed Date and Time: 02/29/2020 7:24 [place], [place] Basic Metabolic Panelon 01-31 Anion gap [Moles/Vol] 6 Normal [facility] Comment on above: Performed By: #### H IJEOMA BMP3 #### [facility] [address] [place] [address] Calcium [Mass/Vol] 8.4 mg/dL Normal 8.4-10.4 [facility] Comment on above: Performed By: #### H IJEOMA BMP3 #### [facility] [address] [place] [address] CO2 [Moles/Vol] 29 mmol/L Normal 22-30 [facility] Comment on above: Performed By: #### H IJEOMA BMP3 #### [facility] [address] [place] [address] Glucose [Mass/Vol] 104 mg/dL High 70-100 [facility] Comment on above: Performed By: #### H IJEOMA BMP3 #### [facility] [address], [place] Urea nitrogen [Mass/Vol] 15 mg/dL Normal 7-20 [facility] Comment on above: Performed By: #### H IJEOMA BMP3 #### [place] [address] [place], [place] Creatinine [Mass/Vol] 0.66 mg/dL Normal 0.52-1.25 [facility] Comment on above: Performed By: #### H IJEOMA BMP3 #### [place] [address] [place] [address] GFR/1.73 sq M predicted among blacks MDRD (S/P/Bld) [Vol rate/Area] mL/min/{1.73_m2} Normal >60 [facility] Comment on above: Performed By: #### H IJEOMA, BMP3 #### [place] [address] [place] [address] GFR/1.73 sq M predicted among non-blacks MDRD (S/P/Bld) [Vol rate/Area] mL/min/{1.73_m2} Normal >60 [facility] Comment on above: Result Comment: KDIG O [...] tubular creatinine secretion. Performed By: #### H EMDF, BMP3 #### [facility] [address] [place] [address] Chloride [Moles/Vol] 98 mmol/L Normal 98-107 [facility] Comment on above: Performed By: #### H EMDF, BMP3 #### [facility] [address] [place] [address] Potassium [Moles/Vol] 3.9 mmol/L Normal 3.5-5.1 [facility] Comment on above: Performed By: #### H EMDF, BMP3 #### [facility] [address] [place] [address] Sodium [Moles/Vol] 133 mmol/L Low 135-145 [facility] Comment on above: Performed By: #### H TRICEF, BMP3 #### [facility] [address] [place] [address] Anion gap [Moles/Vol] 6 mmol/L [place], [place] Calcium [Mass/Vol] 8.4 mg/dL 8.4 - 10. 4 mg/dL [place], [place] Chloride [Moles/Vol] 98 mmol/L 98 - 10 7 mmol/L [place] CO2 [Moles/Vol] 29 mmol/L 22 - 30 mmol/L [place] Creatinine [Mass/Vol] 0.66 mg/dL 0.52 - 1.25 mg/dL [place] EGFR IF NonAfrican Lebanese >90.0 >60 mL/min [place], [place] Comment on above: KDIGO guidelines pro [...] MDRD (S/P/Bld) [Vol rate/Area] mL/min/{1.73_m2} >60 mL/min [place] Glucose [Mass/Vol] 104 mg/dL High 70 - 100 mg/dL [place] Interpretation and review of laboratory results Abnormal [place] Potassium [Moles/Vol] 3.9 mmol/L 3.5 - 5.1 mmol/L [place] Sodium [Moles/Vol] 133 mmol/L Low 135 - 145 mmol/L [place] Urea nitrogen [Mass/Vol] 15 mg/dL 7 - 20 mg/dL [place] Test Performed by [facility], [address] [place] [id number] [place] [address] CBC auto differentialon - Absolute Baso # 0.0 10*3/uL 0 - 0.2 10*3/uL [place] Absolute Neut # 6.1 10*3/uL 1.8 - 7 10*3/uL [place] Basophils/100 WBC (Bld) 0.4 % 0 - 2 % [place] Eosinophils (Bld) [#/Vol] 0.2 10*3/uL 0 - 0.5 10*3/uL [place] Eosinophils/100 WBC (Bld) 2.3 % 1 - 6 % [place] Erythrocyte distribution width (RBC) [Ratio] 14.8 % High 11.5 - 14.5 % [place] Granulocytes/100 WBC (Bld) 83.4 % High 40 - 80 % [place] Hematocrit (Bld) [Volume fraction] 32.4 % Low 40 - 52 % [place] Hemoglobin (Bld) [Mass/Vol] 10.6 g/dL Low 13 - 18 g/dL [place] Interpretation and review of laboratory results Abnormal [place] Lymphocytes (Bld) [#/Vol] 0.5 10*3/uL Low 1 - 4.3 10*3/uL [place] Lymphocytes/100 WBC (Bld) 7.1 % Low 20 - 40 % [place] MCH (RBC) [Entitic mass] 29.3 pg 26 - 34 pg [place] MCHC (RBC) [Mass/Vol] 32.8 % 32 - 36 % [place] MCV (RBC) [Entitic vol] 89.3 fL 80 - 98 fL [place] Monocytes (Bld) [#/Vol] 0.5 10*3/uL 0 - 0.8 10*3/uL [place] Monocytes/100 WBC (Bld) 6.8 % 2 - 10 % [place] Platelet mean volume (Bld) [Entitic vol] 6.7 fL Low 7.4 - 10.4 fL [place] Platelets (Bld) [#/Vol] 267 10*3/uL 140 - 440 10*3/uL [place] RBC (Bld) [#/Vol] 3.63 10*6/uL Low 4.4 - 5.9 10*6/uL [place] WBC (Bld) [#/Vol] 7.4 10*3/uL 3.6 - 10.7 10*3/uL [place] Test Performed by [facility], [address] [place] [id number] [place] [address] CR Chest Portableon 02-28-20 20 CR Chest Portable Patient Name: OSWALDO CORLEY Diagnostic Radiology ACCESSION EXAM DATE/TIME PROCEDURE ORDERING PROVIDER [id number] 02/28/2020 03:59 EST CR Chest Portable MD NATE, RODRICK Davila CPT code 40823 Reason For Exam (CR Chest Portable) sob [...] Transcribed Date and Time: 02/28/2020 4:24 Normal [facility] Hemogram w/ Autodiffon 02-27 Abs Baso Cnt 0.0 10*3/uL Normal 0.0-0.2 [facility] Comment on above: Performed By: #### H EMDF, BMP3 #### [facility] [address], [place] Abs Neutrophile Cnt 6.1 10*3/uL Normal 1.8-7.0 [facility] Comment on above: Performed By: #### H EMDF, BMP3 #### [facility] [address], [place] Basophils/100 WBC (Bld) 0.4 % Normal 0.0-2.0 [facility] Comment on above: Performed By: #### H EMDF, BMP3 #### [facility] [address] [place] [address] Eosinophils (Bld) [#/Vol] 0.2 10*3/uL Normal 0.0-0.5 [facility] Comment on above: Performed By: #### H EMDF, BMP3 #### [facility] [address], [place] Eosinophils/100 WBC (Bld) 2.3 % Normal 1.0-6.0 [facility] Comment on above: Performed By: #### H EMDF, BMP3 #### [facility] [address], [place] Erythrocyte distribution width (RBC) [Ratio] 14.8 % High 11.5-14.5 [facility] Comment on above: Performed By: #### H IJEOMA BMP3 #### [place] [address] [address], [place] Granulocytes/100 WBC (Bld) 83.4 % High 40.0-80.0 [facility] Comment on above: Performed By: #### H IJEOMA BMP3 #### [place] [address] [address], [place] Hematocrit (Bld) [Volume fraction] 32.4 % Low 40.0-52.0 [facility] Comment on above: Performed By: #### H IJEOMA BMP3 #### [place] [address] [place] Hemoglobin (Bld) [Mass/Vol] 10.6 g/dL Low 13.0-18.0 [facility] Comment on above: Performed By: #### H IJEOMA BMP3 #### [place] [address] [place] Lymphocytes (Bld) [#/Vol] 0.5 10*3/uL Low 1.0-4.3 [facility] Comment on above: Performed By: #### H IJEOMA BMP3 #### [address] Lymphocytes/100 WBC (Bld) 7.1 % Low 20.0-40.0 [facility] Comment on above: Performed By: #### H IJEOMA BMP3 #### [place] [address] [address], [place] MCH (RBC) [Entitic mass] 29.3 pg Normal 26.0-34.0 [facility] Comment on above: Performed By: #### H IJEOMA BMP3 #### [address] MCHC (RBC) [Mass/Vol] 32.8 % Normal 32.0-36.0 [facility] Comment on above: Performed By: #### H IJEOMA BMP3 #### [place] [address] [address], [place] MCV (RBC) [Entitic vol] 89.3 fL Normal 80.0-98.0 [facility] Comment on above: Performed By: #### H IJEOMA BMP3 #### [facility] [address], [place] Monocytes (Bld) [#/Vol] 0.5 10*3/uL Normal 0.0-0.8 [facility] Comment on above: Performed By: #### H IJEOMA BMP3 #### [facility] [address], [place] Monocytes/100 WBC (Bld) 6.8 % Normal 2.0-10.0 [facility] Comment on above: Performed By: #### H IJEOMA BMP3 #### [place] [address] [address], [place] Platelet mean volume (Bld) [Entitic vol] 6.7 fL Low 7.4-10.4 [facility] Comment on above: Performed By: #### H IJEOMA BMP3 #### [place] [address] [address], [place] Platelets (Bld) [#/Vol] 267 10*3/uL Normal 140-440 [facility] Comment on above: Performed By: #### H IJEOMA BMP3 #### [place] [address] [address], [place] RBC (Bld) [#/Vol] 3.63 10*6/uL Low 4.40-5.90 [facility] Comment on above: Performed By: #### H EMDF, BMP3 #### [facility] [address], [place] WBC (Bld) [#/Vol] 7.4 10*3/uL Normal 3.6-10.7 [facility] Comment on above: Performed By: #### H EMDF, BMP3 #### [facility] [address], [place] Surgical Pathologyon 020 Sodium [Moles/Vol] SEE BELOW [facility], [place] 1 VT73-25973 [facility] DEPARTMENT OF [facility] PATHOLOGY AND LABORATORY MEDICINE [address] [place] [address] SHY Cuellar [address] FINAL SURGICAL PATHOLOGY REPORT NAME: OSWALDO CORLEY : 1940 79 Y M BILLING NO.: [id number] LOCATION: [place] [address] PROCEDURE 02/20/2020 DATE: SURGEON: OLIVERIO HERRMANN M.D. [...] (pT): pT1b Regional Lymph Nodes (pN): pNX HORTICULTURAL NURSERY ASSISTANT TUMOR BLOCK(S): A1, A6, A7 [facility] Signature> [...] cut surfaces with areas of hemorrhage. Additional branch customer service representative sections are submitted. Cassette Summary: A1- [...] Sectioning through reveals no gross lesions. Multiple branch customer service representative sections are submitted in two cassettes. [facility] Disclaimer: The following statement applies to all immunohistochemistry, in situ hybridization, molecular studies, and immunofluorescence testing. The use of one or more reagents in the above tests is regulated as an analyte specific reagent (ASR). These tests were developed and their performance characteristics determined by the clinical laboratories of [facility]. They have not been cleared by the [...] negativity on decalcified specimens. Professional Performing Location: [place] [address]. DEPARTMENT OF PATHOLOGY AND LABORATORY MEDICINE [place], [place] [address] [place], [place] XR CHEST PORTABLEon 02-28-20 [facility]: [id number]iology ACCESSION EXAM DATE/TIME PROCEDURE ORDERING PROVIDER [id number] 02/28/2020 03:59 EST CR Chest Portable MD SULLIVAN MAZEN E CPT code 29041 Reason For Exam (CR Chest Portable) sob [...] at lung bases. Report Dictated on Workstation: [facility] --- Final --- Dictated: 02/28/2020 4:24 am Dictating Physician: MD ESPINO JEFFREY Signed Date and Time: 02/28/2020 4:26 am Signed by: MD ESPINO JEFFREY Transcribed Date and Time: 02/28/2020 4:24 [facility], [facility], [facility] Incoming Radiology Results From [facility] - 02/28/2020 4:27 AM EST Patient Name: OSWALDO CORLEY Diagnostic Radiology ACCESSION EXAM DATE/TIME PROCEDURE ORDERING PROVIDER [id number] 02/28/2020 03:59 EST CR Chest Portable MD SULLIVAN MAZEN E CPT code 12286 Reason For Exam (CR Chest Portable) sob [...] at lung bases. Report Dictated on Workstation: [facility] --- Final --- Dictated: 02/28/2020 4:24 am Dictating Physician: MD ESPINO JEFFREY Signed Date and Time: 02/28/2020 4:26 am Signed by: MD ESPINO JEFFREY Transcribed Date and Time: 02/28/2020 4:24 [facility], [facility] Basic Metabolic Panelon - Anion gap [Moles/Vol] 1 Normal [facility] Comment on above: Performed By: #### H EMDF, BMP3 #### [place] [address] [address], [place] Calcium [Mass/Vol] 8.4 mg/dL Normal 8.4-10.4 [facility] Comment on above: Performed By: #### H IJEOMA BMP3 #### [facility] [address], [place] CO2 [Moles/Vol] 34 mmol/L High 22-30 [facility] Comment on above: Performed By: #### H IJEOMA BMP3 #### [facility] [address], [place] Glucose [Mass/Vol] 111 mg/dL High 70-100 [facility] Comment on above: Performed By: #### Kareem RAPHAEL BMP3 #### [facility] [address], [place] Urea nitrogen [Mass/Vol] 15 mg/dL Normal 7-20 [facility] Comment on above: Performed By: #### Kareem RAPHAEL BMP3 #### [facility] [address], [place] Creatinine [Mass/Vol] 0.72 mg/dL Normal 0.52-1.25 [facility] Comment on above: Performed By: #### Kareem RAPHAEL BMP3 #### [place] [address] [address], [place] GFR/1.73 sq M predicted among blacks MDRD (S/P/Bld) [Vol rate/Area] mL/min/{1.73_m2} Normal >60 [facility] Comment on above: Performed By: #### H IJEOMA BMP3 #### [facility] [address], [place] GFR/1.73 sq M predicted among non-blacks MDRD (S/P/Bld) [Vol rate/Area] 89.6 mL/min/{1.73_m2} Normal >60 [facility] Comment on above: Result Comment: KDIG O [...] Performed By: #### H IJEOMA BMP3 #### [facility] [address] [place], [place] Chloride [Moles/Vol] 98 mmol/L Normal 98-107 [facility] Comment on above: Performed By: #### H IJEOMA BMP3 #### [address] Potassium [Moles/Vol] 4.4 mmol/L Normal 3.5-5.1 [facility] Comment on above: Performed By: #### H IJEOMA BMP3 #### [address] Sodium [Moles/Vol] 133 mmol/L Low 135-145 [facility] Comment on above: Performed By: #### H IJEOMA BMP3 #### [address] Anion gap [Moles/Vol] 1 mmol/L [place], [place] Calcium [Mass/Vol] 8.4 mg/dL 8.4 - 10. 4 mg/dL [place] Chloride [Moles/Vol] 98 mmol/L 98 - 10 7 mmol/L [place] CO2 [Moles/Vol] 34 mmol/L High 22 - 30 mmol/L [place] Creatinine [Mass/Vol] 0.72 mg/dL 0.52 - 1.25 mg/dL [place] EGFR IF NonAfrican Lebanese 89.6 mL/min >60 [place] Comment on above: KDIGO guidelines pro [...] MDRD (S/P/Bld) [Vol rate/Area] mL/min/{1.73_m2} >60 mL/min [place] Glucose [Mass/Vol] 111 mg/dL High 70 - 100 mg/dL [place] Interpretation and review of laboratory results Abnormal [place] Potassium [Moles/Vol] 4.4 mmol/L 3.5 - 5.1 mmol/L [place] Sodium [Moles/Vol] 133 mmol/L Low 135 - 145 mmol/L [place] Urea nitrogen [Mass/Vol] 15 mg/dL 7 - 20 mg/dL [place] Test Performed by [facility], [address] [place] [address] [place] CBC auto differentialon 12-2 Absolute Baso # 0.0 10*3/uL 0 - 0.2 10*3/uL [place] Absolute Neut # 6.5 10*3/uL 1.8 - 7 10*3/uL [place] Basophils/100 WBC (Bld) 0.1 % 0 - 2 % [place] Eosinophils (Bld) [#/Vol] 0.2 10*3/uL 0 - 0.5 10*3/uL [place] Eosinophils/100 WBC (Bld) 2.2 % 1 - 6 % [place] Erythrocyte distribution width (RBC) [Ratio] 14.5 % 11.5 - 14.5 % [place] Granulocytes/100 WBC (Bld) 84.6 % High 40 - 80 % [place] Hematocrit (Bld) [Volume fraction] 35.3 % Low 40 - 52 % [place] Hemoglobin (Bld) [Mass/Vol] 11.6 g/dL Low 13 - 18 g/dL [place] Interpretation and review of laboratory results Abnormal [place] Lymphocytes (Bld) [#/Vol] 0.5 10*3/uL Low 1 - 4.3 10*3/uL [place] Lymphocytes/100 WBC (Bld) 6.1 % Low 20 - 40 % [place] MCH (RBC) [Entitic mass] 29.8 pg 26 - 34 pg [place] MCHC (RBC) [Mass/Vol] 32.9 % 32 - 36 % [place] MCV (RBC) [Entitic vol] 90.5 fL 80 - 98 fL [place] Monocytes (Bld) [#/Vol] 0.5 10*3/uL 0 - 0.8 10*3/uL [place] Monocytes/100 WBC (Bld) 7.0 % 2 - 10 % [place] Platelet mean volume (Bld) [Entitic vol] 6.5 fL Low 7.4 - 10.4 fL [place] Platelets (Bld) [#/Vol] 282 10*3/uL 140 - 440 10*3/uL [place] RBC (Bld) [#/Vol] 3.90 10*6/uL Low 4.4 - 5.9 10*6/uL [place] WBC (Bld) [#/Vol] 7.7 10*3/uL 3.6 - 10.7 10*3/uL [place] Test Performed by [facility], [address] [place] [address] [place] CR Chest Portableon 02-27-20 20 CR Chest Portable Patient [facility]: [id number] Radiology ACCESSION EXAM DATE/TIME PROCEDURE ORDERING PROVIDER [id number] 02/27/2020 06:38 EST CR Chest Portable MD NATE, RODRICK Davila CPT code 32728 Reason For Exam (CR Chest Portable) sob [...] Transcribed Date and Time: 02/27/2020 7:16 Normal [facility] Hemogram w/ Autodiffon 02-26 Abs Baso Cnt 0.0 10*3/uL Normal 0.0-0.2 [facility] Comment on above: Performed By: #### H IJEOMA BMP3 #### [facility] [address] [place] [address] Abs Neutrophile Cnt 6.5 10*3/uL Normal 1.8-7.0 [facility] Comment on above: Performed By: #### H EMDYuri BMP3 #### [facility] [address] [place] [address] Basophils/100 WBC (Bld) 0.1 % Normal 0.0-2.0 [facility] Comment on above: Performed By: #### H IJEOMA BMP3 #### [facility] [address] [place] [address] Eosinophils (Bld) [#/Vol] 0.2 10*3/uL Normal 0.0-0.5 [facility] Comment on above: Performed By: #### H IJEOMA BMP3 #### [place] [address] [address] [place] Eosinophils/100 WBC (Bld) 2.2 % Normal 1.0-6.0 [facility] Comment on above: Performed By: #### H IJEOMA BMP3 #### [place] [address] [address] [place] Erythrocyte distribution width (RBC) [Ratio] 14.5 % Normal 11.5-14.5 [facility] Comment on above: Performed By: #### H IJEOMA BMP3 #### [place] [address] [place] Granulocytes/100 WBC (Bld) 84.6 % High 40.0-80.0 [facility] Comment on above: Performed By: #### H IJEOMA BMP3 #### [place] [address] [address] [place] Hematocrit (Bld) [Volume fraction] 35.3 % Low 40.0-52.0 [facility] Comment on above: Performed By: #### H IJEOMA BMP3 #### [place] [address] [address] [place] Hemoglobin (Bld) [Mass/Vol] 11.6 g/dL Low 13.0-18.0 [facility] Comment on above: Performed By: #### H IJEOMA BMP3 #### [place] [address] [address] [place] Lymphocytes (Bld) [#/Vol] 0.5 10*3/uL Low 1.0-4.3 [facility] Comment on above: Performed By: #### H IJEOMA BMP3 #### [place] [address] [address] [place] Lymphocytes/100 WBC (Bld) 6.1 % Low 20.0-40.0 [facility] Comment on above: Performed By: #### H IJEOMA BMP3 #### [place] [address] [address] [place] MCH (RBC) [Entitic mass] 29.8 pg Normal 26.0-34.0 [facility] Comment on above: Performed By: #### H IJEOMA BMP3 #### [facility] [address], [place] MCHC (RBC) [Mass/Vol] 32.9 % Normal 32.0-36.0 [facility] Comment on above: Performed By: #### H IJEOMA BMP3 #### [place] [address] [address] [place] MCV (RBC) [Entitic vol] 90.5 fL Normal 80.0-98.0 [facility] Comment on above: Performed By: #### H IJEOMA BMP3 #### [address] Monocytes (Bld) [#/Vol] 0.5 10*3/uL Normal 0.0-0.8 [facility] Comment on above: Performed By: #### H IJEOMA BMP3 #### [place] [address] [address] [place] Monocytes/100 WBC (Bld) 7.0 % Normal 2.0-10.0 [facility] Comment on above: Performed By: #### H IJEOMA BMP3 #### [place] [address] [address] [place] Platelet mean volume (Bld) [Entitic vol] 6.5 fL Low 7.4-10.4 [facility] Comment on above: Performed By: #### H IJEOMA BMP3 #### [place] [address] [address] [place] Platelets (Bld) [#/Vol] 282 10*3/uL Normal 140-440 [facility] Comment on above: Performed By: #### H IJEOMA BMP3 #### [address] RBC (Bld) [#/Vol] 3.90 10*6/uL Low 4.40-5.90 [facility] Comment on above: Performed By: #### H EMDF, BMP3 #### [facility] [address] [place] [address] WBC (Bld) [#/Vol] 7.7 10*3/uL Normal 3.6-10.7 [facility] Comment on above: Performed By: #### H EMDF, BMP3 #### [facility] [address] [place] [address] XR CHEST PORTABLEon 02-27-20 [place], [facility]/27/2020 7:20 AM EST Patient Name: OSWALDO CORLEY Diagnostic Radiology ACCESSION EXAM DATE/TIME PROCEDURE ORDERING PROVIDER [id number] 02/27/2020 06:38 EST CR Chest Portable MD SULLIVAN MAZEN E CPT code 11290 Reason For Exam (CR Chest Portable) sob [...] NELSON Transcribed Date and Time: 02/27/2020 7:16 [place], [place] Patient Name: OSWALDO CORLEY Diagnostic Radiology ACCESSION EXAM DATE/TIME PROCEDURE ORDERING PROVIDER [id number] 02/27/2020 06:38 EST CR Chest Portable MD SULLIVAN MAZEN E CPT code 85101 Reason For Exam (CR Chest Portable) sob [...] NELSON Transcribed Date and Time: 02/27/2020 7:16 [place], [place] Basic Metabolic Panelon 12-2 Anion gap [Moles/Vol] 1 Normal [facility] Comment on above: Performed By: #### H IJEOMA BMP3 #### [facility] [address] [place] [address] Calcium [Mass/Vol] 8.2 mg/dL Low 8.4-10.4 [facility] Comment on above: Performed By: #### H IJEOMA BMP3 #### [facility] [address] [place] [address] CO2 [Moles/Vol] 31 mmol/L High 22-30 [facility] Comment on above: Performed By: #### H IJEOMA BMP3 #### [facility] [address] [place] [address] Glucose [Mass/Vol] 111 mg/dL High 70-100 [facility] Comment on above: Performed By: #### H IJEOMA BMP3 #### [facility] [address] [place] [address] Urea nitrogen [Mass/Vol] 12 mg/dL Normal 7-20 [facility] Comment on above: Performed By: #### H IJEOMA BMP3 #### [facility] [address], [place] Creatinine [Mass/Vol] 0.70 mg/dL Normal 0.52-1.25 [facility] Comment on above: Performed By: #### H IJEOMA BMP3 #### [facility] [address], [place] GFR/1.73 sq M predicted among blacks MDRD (S/P/Bld) [Vol rate/Area] mL/min/{1.73_m2} Normal >60 [facility] Comment on above: Performed By: #### H IJEOMA BMP3 #### [facility] [address], [place] GFR/1.73 sq M predicted among non-blacks MDRD (S/P/Bld) [Vol rate/Area] mL/min/{1.73_m2} Normal >60 [facility] Comment on above: Result Comment: KDIG O [...] Performed By: #### H IJEOMA BMP3 #### [facility] [address] [place] Chloride [Moles/Vol] 99 mmol/L Normal 98-107 [facility] Comment on above: Performed By: #### H IJEOMA BMP3 #### [facility] [address], [place] Potassium [Moles/Vol] 4.5 mmol/L Normal 3.5-5.1 [facility] Comment on above: Performed By: #### H RENETTA RAPHAEL3 #### [facility] [address] [place] [address] Sodium [Moles/Vol] 132 mmol/L Low 135-145 [facility] Comment on above: Performed By: #### H RENETTA RAPHAEL3 #### [facility] [address] [place] [address] Anion gap [Moles/Vol] 1 mmol/L [place], [place] Calcium [Mass/Vol] 8.2 mg/dL Low 8.4 - 10. 4 mg/dL [place] Chloride [Moles/Vol] 99 mmol/L 98 - 10 7 mmol/L [place] CO2 [Moles/Vol] 31 mmol/L High 22 - 30 mmol/L [place] Creatinine [Mass/Vol] 0.7 mg/dL 0.52 - 1.25 mg/dL [place] EGFR IF NonAfrican Lebanese >90.0 >60 mL/min [place] Comment on above: KDIGO guidelines pro [...] MDRD (S/P/Bld) [Vol rate/Area] mL/min/{1.73_m2} >60 mL/min [place], [place] Glucose [Mass/Vol] 111 mg/dL High 70 - 100 mg/dL [place] Interpretation and review of laboratory results Abnormal [place] Potassium [Moles/Vol] 4.5 mmol/L 3.5 - 5.1 mmol/L [place] Sodium [Moles/Vol] 132 mmol/L Low 135 - 145 mmol/L [place] Urea nitrogen [Mass/Vol] 12 mg/dL 7 - 20 mg/dL [place] Test Performed by [id number] [place] [address] CBC auto differentialon 01-31 Erythrocyte distribution width (RBC) [Ratio] 14.5 % 11.5 - 14.5 % [place] Hematocrit (Bld) [Volume fraction] 32.4 % Low 40 - 52 % [place] Hemoglobin (Bld) [Mass/Vol] 10.8 g/dL Low 13 - 18 g/dL [place] MCH (RBC) [Entitic mass] 29.9 pg 26 - 34 pg [place] MCHC (RBC) [Mass/Vol] 33.2 % 32 - 36 % [place] MCV (RBC) [Entitic vol] 90.3 fL 80 - 98 fL [place] Platelet mean volume (Bld) [Entitic vol] 7.2 fL Low 7.4 - 10.4 fL [place] Platelets (Bld) [#/Vol] 278 10*3/uL 140 - 440 10*3/uL [place] RBC (Bld) [#/Vol] 3.59 10*6/uL Low 4.4 - 5.9 10*6/uL [place] WBC (Bld) [#/Vol] 8.7 10*3/uL 3.6 - 10.7 10*3/uL [place] CR Chest Portableon 02-26-20 20 CR Chest Portable Patient Name: OSWALDO CORLEY Diagnostic Radiology ACCESSION EXAM DATE/TIME PROCEDURE ORDERING PROVIDER [id number] 02/26/2020 06:48 EST CR Chest Portable MD SULLIVAN MAZEN E CPT code 47069 Reason For Exam (CR Chest Portable) sob [...] Transcribed Date and Time: 02/26/2020 10:27 Normal [facility] Hemogram w/ Autodiffon 02-25 Erythrocyte distribution width (RBC) [Ratio] 14.5 % Normal 11.5-14.5 [facility] Comment on above: Performed By: #### H IJEOMA, BMP3 #### [facility] [address] [place], [place] Hematocrit (Bld) [Volume fraction] 32.4 % Low 40.0-52.0 [facility] Comment on above: Performed By: #### H IJEOMA, BMP3 #### [facility] [address] [place], [place] Hemoglobin (Bld) [Mass/Vol] 10.8 g/dL Low 13.0-18.0 [facility] Comment on above: Performed By: #### H TRICEF, BMP3 #### [facility] [address] [place], [place] MCH (RBC) [Entitic mass] 29.9 pg Normal 26.0-34.0 [facility] Comment on above: Performed By: #### H EMDF, BMP3 #### [facility] [address] [place], [place] MCHC (RBC) [Mass/Vol] 33.2 % Normal 32.0-36.0 [facility] Comment on above: Performed By: #### H EMDF, BMP3 #### [address] [address] [address] [place], [place] MCV (RBC) [Entitic vol] 90.3 fL Normal 80.0-98.0 [facility] Comment on above: Performed By: #### H EMDF BMP3 #### [address] [address] [address] [place], [place] Platelet mean volume (Bld) [Entitic vol] 7.2 fL Low 7.4-10.4 [facility] Comment on above: Performed By: #### H EMDF BMP3 #### [address] Platelets (Bld) [#/Vol] 278 10*3/uL Normal 140-440 [facility] Comment on above: Performed By: #### H EMDYuri BMP3 #### [address] [address] [address] [place], [place] RBC (Bld) [#/Vol] 3.59 10*6/uL Low 4.40-5.90 [facility] Comment on above: Performed By: #### H EMDF, BMP3 #### [address] [address] [place], [place] WBC (Bld) [#/Vol] 8.7 10*3/uL Normal 3.6-10.7 [facility] Comment on above: Performed By: #### H EMDF, BMP3 #### [address] [place], [place] Manual Diffon 02-26-2020 Abs Eosin Cnt 0.1 10*3/uL Normal 0.0-0.5 [facility] Comment on above: Result Comment: NAILA ECTED RESULT...Previous above value was 0.0, verified on 02/26/20 at 05:35 by CLF1 . Performed By: #### H EMDF, BMP3 #### [address] [place], [place] Abs Lymph Cnt 0.3 10*3/uL Low 1.1-4.5 [facility] Comment on above: Performed By: #### H EMDF, BMP3 #### [facility] [address] [place], [place] Abs Monocyte Cnt 0.9 10*3/uL Normal 0.2-1.1 [facility] Comment on above: Performed By: #### H EMDF, BMP3 #### [facility] [address] [place], [place] Abs Neutrophile Cnt 7.4 10*3/uL Normal 2.2-8.2 [facility] Comment on above: Performed By: #### H EMDF, BMP3 #### [facility] [address] [place], [place] Bands 1 % Normal 0-3 [facility] Comment on above: Performed By: #### H EMDF, BMP3 #### [facility] [address] [place], [place] Eosinophils 1 % Normal 1-6 [facility] Comment on above: Performed By: #### H EMDF, BMP3 #### [facility] [address] [place], [place] Lymphocytes 4 % Low 20-40 [facility] Comment on above: Performed By: #### H EMDF, BMP3 #### [facility] [address] [place], [place] Monocytes 10 % Normal 2-10 [facility] Comment on above: Performed By: #### H EMDF, BMP3 #### [facility] [address] [place], [place] Polychromasia Slight Normal [facility] Comment on above: Performed By: #### H EMDF, BMP3 #### [address] [address] [address] [place], [place] RBC morphology finding Nom (Bld) Normal Normal [facility] Comment on above: Performed By: #### H EMDF, BMP3 #### [facility] [address] [place], [place] Seg Neutrophils 84 % High 40-80 [facility] Comment on above: Performed By: #### H EMDF, BMP3 #### [address] [place], [place] Abs Baso Cnt 0.0 10*3/uL Normal 0.0-0.2 [facility] Comment on above: Performed By: #### H EMDF, BMP3 #### [facility] [address] [place], [place] Basophils 0 % Normal 0-2 [facility] Comment on above: Performed By: #### H EMDF, BMP3 #### [facility] [address] [place], [place] Cells counted 100 Normal [facility] Comment on above: Performed By: #### H EMDF, BMP3 #### [address] [address] [address] [place], [place] Manual Differentialon 2019 Absolute Baso # 0.0 10*3/uL 0 - 0.2 10*3/uL [facility] [place] Absolute Eos # 0.1 10*3/uL 0 - 0.5 10*3/uL [facility] [place], [place] Comment on above: CORRECTED RESULT...P revious above value was 0.0, verified on 02/26/20 at 05:35 by CLF1 . Absolute Lymph # 0.3 10*3/uL Low 1.1 - 4.5 10*3/uL [facility] [place], [place] Absolute Weld # 0.9 10*3/uL 0.2 - 1.1 10*3/uL [...] [place] RBC morphology finding Nom (Bld) Normal [place] Seg Neutrophils 84 % High 40 - 80 % [place] TOTAL CELLS COUNTED 100 [place] Otheron 02-26-2020 Interpretation and review of laboratory results Abnormal [place] Test Performed by [facility], [address] [place] [address] [place] XR CHEST PORTABLEon 02-26-20 Patient Name: OSWALDO ALANIZ Diagnostic Radiology ACCESSION EXAM DATE/TIME PROCEDURE ORDERING PROVIDER [id number] 02/26/2020 06:48 EST CR Chest Portable MD NATE, RODRICK Davila CPT code 44595 Reason For Exam (CR Chest Portable) sob [...] JOHN Transcribed Date and Time: 02/26/2020 10:27 [place], [place] Nolan Meier [facility]26/[facility] 10:29 AM EST Patient Name: OSWALDO CORLEY Diagnostic Radiology ACCESSION EXAM DATE/TIME PROCEDURE ORDERING PROVIDER [id number] 02/26/2020 06:48 EST CR Chest Portable MD NATE, MIANAnjana Davila CPT code 69974 Reason For Exam (CR Chest Portable) sob [...] JOHN Transcribed Date and Time: 02/26/2020 10:27 [place] Basic Metabolic Panelon 12-2 Anion gap [Moles/Vol] 1 Normal [facility] Comment on above: Performed By: #### B MP3, HEMDF #### [facility] [address] [place], [place] Calcium [Mass/Vol] 7.9 mg/dL Low 8.4-10.4 [facility] Comment on above: Performed By: #### B MP3, HEMDF #### [facility] [address] [place], [place] CO2 [Moles/Vol] 31 mmol/L High 22-30 [facility] Comment on above: Performed By: #### B MP3, HEMDF #### [facility] [address] [place], [place] Glucose [Mass/Vol] 138 mg/dL High 70-100 [facility] Comment on above: Performed By: #### B MP3, HEMDF #### [facility] [address] [place] [address] Urea nitrogen [Mass/Vol] 13 mg/dL Normal 7-20 [facility] Comment on above: Performed By: #### B MP3, HEMDF #### [facility] [address] [place] [address] Creatinine [Mass/Vol] 0.68 mg/dL Normal 0.52-1.25 [facility] Comment on above: Performed By: #### B MP3, HEMDF #### [facility] [address] [place] [address] GFR/1.73 sq M predicted among blacks MDRD (S/P/Bld) [Vol rate/Area] mL/min/{1.73_m2} Normal >60 [facility] Comment on above: Performed By: #### B MP3, HEMDF #### [facility] [address] [place] [address] GFR/1.73 sq M predicted among non-blacks MDRD (S/P/Bld) [Vol rate/Area] mL/min/{1.73_m2} Normal >60 [facility] Comment on above: Result Comment: KDIG O [...] Performed By: #### B MP3, HEMDF #### [facility] [address] [place], [place] Chloride [Moles/Vol] 99 mmol/L Normal 98-107 [facility] Comment on above: Performed By: #### B MP3, HEMDF #### [facility] [address] [place], [place] Potassium [Moles/Vol] 4.3 mmol/L Normal 3.5-5.1 [facility] Comment on above: Performed By: #### B MP3, HEMDF #### [facility] [address] [place], [place] Sodium [Moles/Vol] 131 mmol/L Low 135-145 [facility] Comment on above: Performed By: #### B MP3, HEMDF #### [facility] [address] [place], [place] Anion gap [Moles/Vol] 1 mmol/L [place], [place] Calcium [Mass/Vol] 7.9 mg/dL Low 8.4 - 10. 4 mg/dL [place] Chloride [Moles/Vol] 99 mmol/L 98 - 10 7 mmol/L [place] CO2 [Moles/Vol] 31 mmol/L High 22 - 30 mmol/L [place] Creatinine [Mass/Vol] 0.68 mg/dL 0.52 - 1.25 mg/dL [place] EGFR IF NonAfrican Lebanese >90.0 >60 mL/min [place] Comment on above: KDIGO guidelines pro [...] MDRD (S/P/Bld) [Vol rate/Area] mL/min/{1.73_m2} >60 mL/min [place] Glucose [Mass/Vol] 138 mg/dL High 70 - 100 mg/dL [place] Interpretation and review of laboratory results Abnormal [place] Potassium [Moles/Vol] 4.3 mmol/L 3.5 - 5.1 mmol/L [place] Sodium [Moles/Vol] 131 mmol/L Low 135 - 145 mmol/L [place] Urea nitrogen [Mass/Vol] 13 mg/dL 7 - 20 mg/dL [place] Test Performed by [address] [address] [place] CBC auto differentialon 12-2 Absolute Baso # 0.0 10*3/uL 0 - 0.2 10*3/uL [place] Absolute Neut # 6.0 10*3/uL 1.8 - 7 10*3/uL [place] Basophils/100 WBC (Bld) 0.5 % 0 - 2 % [place] Eosinophils (Bld) [#/Vol] 0.2 10*3/uL 0 - 0.5 10*3/uL [place] Eosinophils/100 WBC (Bld) 3.3 % 1 - 6 % [place] Erythrocyte distribution width (RBC) [Ratio] 14.7 % High 11.5 - 14.5 % [place] Granulocytes/100 WBC (Bld) 84.6 % High 40 - 80 % [place] Hematocrit (Bld) [Volume fraction] 29.7 % Low 40 - 52 % [place] Hemoglobin (Bld) [Mass/Vol] 9.8 g/dL Low 13 - 18 g/dL [place] Interpretation and review of laboratory results Abnormal [place] Lymphocytes (Bld) [#/Vol] 0.4 10*3/uL Low 1 - 4.3 10*3/uL [place] Lymphocytes/100 WBC (Bld) 5.0 % Low 20 - 40 % [place] MCH (RBC) [Entitic mass] 29.8 pg 26 - 34 pg [place] MCHC (RBC) [Mass/Vol] 33.1 % 32 - 36 % [place] MCV (RBC) [Entitic vol] 90.1 fL 80 - 98 fL [place] Monocytes (Bld) [#/Vol] 0.5 10*3/uL 0 - 0.8 10*3/uL [place] Monocytes/100 WBC (Bld) 6.6 % 2 - 10 % [place] Platelet mean volume (Bld) [Entitic vol] 6.6 fL Low 7.4 - 10.4 fL [place] Platelets (Bld) [#/Vol] 229 10*3/uL 140 - 440 10*3/uL [place] RBC (Bld) [#/Vol] 3.29 10*6/uL Low 4.4 - 5.9 10*6/uL [place] WBC (Bld) [#/Vol] 7.1 10*3/uL 3.6 - 10.7 10*3/uL [place] Test Performed by [facility], [address] [place] [id number] [place] [address] CR Chest Portableon 02-25-20 20 CR Chest Portable Patient Name: OSWALDO CORLEY Diagnostic Radiology ACCESSION EXAM DATE/TIME PROCEDURE ORDERING PROVIDER [id number] 02/25/2020 08:23 EST CR Chest Portable MD SULLIVAN MAZEN E CPT code 35305 Reason For Exam (CR Chest Portable) sob [...] Time: 02/25/2020 8:52 am Signed by: MD ROBRESON RISA Transcribed Date and Time: 02/25/2020 8:51 Normal [facility] CULTURE URINEon 02-25-2020 CULTURE URINE CULTURE URINE --> St atus: F No growth (<1,000 CFU/ml). Normal [facility] Comment on above: Performed By: #### B MP3, HEMDF #### [facility] [address] [place] [address] Culture, Urineon 02-25-2020 Bacteria identified Cx Nom (U) No growth (<1,000 CFU/ml). [facility], [place] Test Performed by [facility], [address] [place] [address] [facility], [place] Hemogram w/ Autodiffon 02-24 Abs Baso Cnt 0.0 10*3/uL Normal 0.0-0.2 [facility] Comment on above: Performed By: #### B MP3, HEMDF #### [facility] [address] [place] [address] Abs Neutrophile Cnt 6.0 10*3/uL Normal 1.8-7.0 [facility] Comment on above: Performed By: #### B MP3, HEMDF #### [facility] [address] [place] [address] Basophils/100 WBC (Bld) 0.5 % Normal 0.0-2.0 [facility] Comment on above: Performed By: #### B MP3, HEMDF #### [facility] [address] [place] [address] Eosinophils (Bld) [#/Vol] 0.2 10*3/uL Normal 0.0-0.5 [facility] Comment on above: Performed By: #### B MP3, HEMDF #### [facility] [address] [place] [address] Eosinophils/100 WBC (Bld) 3.3 % Normal 1.0-6.0 [facility] Comment on above: Performed By: #### B MP3, HEMDF #### [facility] [address] [place] Erythrocyte distribution width (RBC) [Ratio] 14.7 % High 11.5-14.5 [facility] Comment on above: Performed By: #### B MP3, HEMDF #### [address] [address] [address] [place], [place] Granulocytes/100 WBC (Bld) 84.6 % High 40.0-80.0 [facility] Comment on above: Performed By: #### B MP3, HEMDF #### [address] [address] [address] [place] Hematocrit (Bld) [Volume fraction] 29.7 % Low 40.0-52.0 [facility] Comment on above: Performed By: #### B MP3, HEMDF #### [address] [address] [address] [place] Hemoglobin (Bld) [Mass/Vol] 9.8 g/dL Low 13.0-18.0 [facility] Comment on above: Performed By: #### B MP3, HEMDF #### [address] [address] [address] [place] Lymphocytes (Bld) [#/Vol] 0.4 10*3/uL Low 1.0-4.3 [facility] Comment on above: Performed By: #### B MP3, HEMDF #### [address] [address] [address] [place] Lymphocytes/100 WBC (Bld) 5.0 % Low 20.0-40.0 [facility] Comment on above: Performed By: #### B MP3, HEMDF #### [address] [address] [address] [place] MCH (RBC) [Entitic mass] 29.8 pg Normal 26.0-34.0 [facility] Comment on above: Performed By: #### B MP3, HEMDF #### [address] [address] [address] [place] MCHC (RBC) [Mass/Vol] 33.1 % Normal 32.0-36.0 [facility] Comment on above: Performed By: #### B MP3, HEMDF #### [address] [address] [address] [place] MCV (RBC) [Entitic vol] 90.1 fL Normal 80.0-98.0 [facility] Comment on above: Performed By: #### B MP3, HEMDF #### [address] [address] [address] [place] Monocytes (Bld) [#/Vol] 0.5 10*3/uL Normal 0.0-0.8 [facility] Comment on above: Performed By: #### B MP3, HEMDF #### [address] [address] [address] [place] Monocytes/100 WBC (Bld) 6.6 % Normal 2.0-10.0 [facility] Comment on above: Performed By: #### B MP3, HEMDF #### [address] [address] [address] [place] Platelet mean volume (Bld) [Entitic vol] 6.6 fL Low 7.4-10.4 [facility] Comment on above: Performed By: #### B MP3, HEMDF #### [address] [address] [place], [place] Platelets (Bld) [#/Vol] 229 10*3/uL Normal 140-440 [facility] Comment on above: Performed By: #### B MP3, HEMDF #### [address] [address] [address] [place] RBC (Bld) [#/Vol] 3.29 10*6/uL Low 4.40-5.90 [facility] Comment on above: Performed By: #### B MP3, HEMDF #### [address] [address] [address] [place] WBC (Bld) [#/Vol] 7.1 10*3/uL Normal 3.6-10.7 [facility] Comment on above: Performed By: #### B MP3, HEMDF #### [facility] [address] [place] [address] XR CHEST PORTABLEon 02-25-20 [facility] Incoming Radiology Results From [facility] - 02/25/2020 8:53 AM EST Patient Name: OSWALDO CORLEY Diagnostic Radiology ACCESSION EXAM DATE/TIME PROCEDURE ORDERING PROVIDER [id number] 02/25/2020 08:23 EST CR Chest Portable MD SULLIVAN MAZEN E CPT code 41842 Reason For Exam (CR Chest Portable) sob [...] RISA Transcribed Date and Time: 02/25/2020 8:51 [place] Patient Name: OSWALDO CORLEY Diagnostic Radiology ACCESSION EXAM DATE/TIME PROCEDURE ORDERING PROVIDER [id number] 02/25/2020 08:23 EST CR Chest Portable MD SULLIVAN MAZEN E CPT code 55734 Reason For Exam (CR Chest Portable) sob [...] Time: 02/25/2020 8:52 am Signed by: MD KAROL, PROMISE Transcribed Date and Time: 02/25/2020 8:51 [facility] [place], [place] Basic Metabolic Panelon 12-2 Anion gap [Moles/Vol] 6 Normal [facility] Comment on above: Performed By: #### B MP3, HEMDF #### [facility] [address] [place] [address] Calcium [Mass/Vol] 8.4 mg/dL Normal 8.4-10.4 [facility] Comment on above: Performed By: #### B MP3, HEMDF #### [facility] [address] [place] [address] CO2 [Moles/Vol] 30 mmol/L Normal 22-30 [facility] Comment on above: Performed By: #### B MP3, HEMDF #### [facility] [address] [place] [address] Creatinine [Mass/Vol] 0.68 mg/dL Normal 0.52-1.25 [facility] Comment on above: Performed By: #### B MP3, HEMDF #### [facility] [address] [place] [address] GFR/1.73 sq M predicted among blacks MDRD (S/P/Bld) [Vol rate/Area] mL/min/{1.73_m2} Normal >60 [facility] Comment on above: Performed By: #### B MP3, HEMDF #### [facility] [address] [place] [address] GFR/1.73 sq M predicted among non-blacks MDRD (S/P/Bld) [Vol rate/Area] mL/min/{1.73_m2} Normal >60 [facility] Comment on above: Result Comment: KDIG O [...] Performed By: #### B MP3, HEMDF #### [facility] [address] [place], [place] Glucose [Mass/Vol] 98 mg/dL Normal 70-100 [facility] Comment on above: Performed By: #### B MP3, HEMDF #### [facility] [address] [place], [place] Urea nitrogen [Mass/Vol] 18 mg/dL Normal 7-20 [facility] Comment on above: Performed By: #### B MP3, HEMDF #### [facility] [address] [place], [place] Chloride [Moles/Vol] 96 mmol/L Low 98-107 [facility] Comment on above: Performed By: #### B MP3, HEMDF #### [facility] [address] [place], [place] Potassium [Moles/Vol] 4.1 mmol/L Normal 3.5-5.1 [facility] Comment on above: Performed By: #### B MP3, HEMDF #### [facility] [address] [place] Sodium [Moles/Vol] 133 mmol/L Low 135-145 [facility] Comment on above: Performed By: #### B MP3, HEMDF #### [address] [address] [address] [place] Anion gap [Moles/Vol] 6 mmol/L [facility], [place] Calcium [Mass/Vol] 8.4 mg/dL 8.4 - 10. 4 mg/dL [facility], [place] Chloride [Moles/Vol] 96 mmol/L Low 98 - 10 7 mmol/L [facility], [place] CO2 [Moles/Vol] 30 mmol/L 22 - 30 mmol/L [place] Creatinine [Mass/Vol] 0.68 mg/dL 0.52 - 1.25 mg/dL [place] EGFR IF NonAfrican Lebanese >90.0 >60 mL/min [place] Comment on above: KDIGO guidelines pro [...] MDRD (S/P/Bld) [Vol rate/Area] mL/min/{1.73_m2} >60 mL/min [place] Glucose [Mass/Vol] 98 mg/dL 70 - 100 mg/dL [place] Interpretation and review of laboratory results Abnormal [place] Potassium [Moles/Vol] 4.1 mmol/L 3.5 - 5.1 mmol/L [place] Sodium [Moles/Vol] 133 mmol/L Low 135 - 145 mmol/L [place] Urea nitrogen [Mass/Vol] 18 mg/dL 7 - 20 mg/dL [place] Test Performed by [facility], [address] [place] [id number] [place] [address] CBC auto differentialon 12-2 Absolute Baso # 0.0 10*3/uL 0 - 0.2 10*3/uL [place] Absolute Neut # 6.6 10*3/uL 1.8 - 7 10*3/uL [place] Basophils/100 WBC (Bld) 0.2 % 0 - 2 % [place] Eosinophils (Bld) [#/Vol] 0.1 10*3/uL 0 - 0.5 10*3/uL [place] Eosinophils/100 WBC (Bld) 1.2 % 1 - 6 % [place] Erythrocyte distribution width (RBC) [Ratio] 14.6 % High 11.5 - 14.5 % [place] Granulocytes/100 WBC (Bld) 87.2 % High 40 - 80 % [place] Hematocrit (Bld) [Volume fraction] 30.8 % Low 40 - 52 % [place] Hemoglobin (Bld) [Mass/Vol] 10.2 g/dL Low 13 - 18 g/dL [place] Interpretation and review of laboratory results Abnormal [place] Lymphocytes (Bld) [#/Vol] 0.4 10*3/uL Low 1 - 4.3 10*3/uL [place] Lymphocytes/100 WBC (Bld) 5.3 % Low 20 - 40 % [place] MCH (RBC) [Entitic mass] 29.8 pg 26 - 34 pg [place] MCHC (RBC) [Mass/Vol] 33.1 % 32 - 36 % [place] MCV (RBC) [Entitic vol] 90.0 fL 80 - 98 fL [place] Monocytes (Bld) [#/Vol] 0.5 10*3/uL 0 - 0.8 10*3/uL [place] Monocytes/100 WBC (Bld) 6.1 % 2 - 10 % [place] Platelet mean volume (Bld) [Entitic vol] 6.8 fL Low 7.4 - 10.4 fL [place] Platelets (Bld) [#/Vol] 231 10*3/uL 140 - 440 10*3/uL [place] RBC (Bld) [#/Vol] 3.42 10*6/uL Low 4.4 - 5.9 10*6/uL [place] WBC (Bld) [#/Vol] 7.5 10*3/uL 3.6 - 10.7 10*3/uL [facility] Test Performed by [facility], [address] [place] [address] [facility]-20 20 CR Chest Portable Patient Name: OSWALDO CORLEY Diagnostic Radiology ACCESSION EXAM DATE/TIME PROCEDURE ORDERING PROVIDER [id number] 02/24/2020 07:23 EST CR Chest Portable MD SULLIVAN MAZEN E CPT code 26880 Reason For Exam (CR Chest Portable) sob [...] Transcribed Date and Time: 02/24/2020 8:24 Normal [facility] Hemogram w/ Autodiffon 02-23 Abs Baso Cnt 0.0 10*3/uL Normal 0.0-0.2 [facility] Comment on above: Performed By: #### B MP3, HEMDF #### [address] [address] [place] [address] Abs Neutrophile Cnt 6.6 10*3/uL Normal 1.8-7.0 [facility] Comment on above: Performed By: #### B MP3, HEMDF #### [address] [address] [place] [address] Basophils/100 WBC (Bld) 0.2 % Normal 0.0-2.0 [facility] Comment on above: Performed By: #### B MP3, HEMDF #### [address] [place] [address] Eosinophils (Bld) [#/Vol] 0.1 10*3/uL Normal 0.0-0.5 [facility] Comment on above: Performed By: #### B MP3, HEMDF #### [address] [place] [address] Eosinophils/100 WBC (Bld) 1.2 % Normal 1.0-6.0 [facility] Comment on above: Performed By: #### B MP3, HEMDF #### [facility] [address] [place] [address] Erythrocyte distribution width (RBC) [Ratio] 14.6 % High 11.5-14.5 [facility] Comment on above: Performed By: #### B MP3, HEMDF #### [facility] [address] [place] [address] Granulocytes/100 WBC (Bld) 87.2 % High 40.0-80.0 [facility] Comment on above: Performed By: #### B MP3, HEMDF #### [address], [place] Hematocrit (Bld) [Volume fraction] 30.8 % Low 40.0-52.0 [facility] Comment on above: Performed By: #### B MP3, HEMDF #### [address] [place] [address] Hemoglobin (Bld) [Mass/Vol] 10.2 g/dL Low 13.0-18.0 [facility] Comment on above: Performed By: #### B MP3, HEMDF #### [address] [place] [address] Lymphocytes (Bld) [#/Vol] 0.4 10*3/uL Low 1.0-4.3 [facility] Comment on above: Performed By: #### B MP3, HEMDF #### [facility] [address] [place] [address] Lymphocytes/100 WBC (Bld) 5.3 % Low 20.0-40.0 [facility] Comment on above: Performed By: #### B MP3, HEMDF #### [facility] [address], [place] MCH (RBC) [Entitic mass] 29.8 pg Normal 26.0-34.0 [facility] Comment on above: Performed By: #### B MP3, HEMDF #### [place] [address] [address], [place] MCHC (RBC) [Mass/Vol] 33.1 % Normal 32.0-36.0 [facility] Comment on above: Performed By: #### B MP3, HEMDF #### [address] [place] [address] [place], [place] MCV (RBC) [Entitic vol] 90.0 fL Normal 80.0-98.0 [facility] Comment on above: Performed By: #### B MP3, HEMDF #### [place] [address] [place], [place] Monocytes (Bld) [#/Vol] 0.5 10*3/uL Normal 0.0-0.8 [facility] Comment on above: Performed By: #### B MP3, HEMDF #### [place] [address] [place], [place] Monocytes/100 WBC (Bld) 6.1 % Normal 2.0-10.0 [facility] Comment on above: Performed By: #### B MP3, HEMDF #### [place] [address] [place], [place] Platelet mean volume (Bld) [Entitic vol] 6.8 fL Low 7.4-10.4 [facility] Comment on above: Performed By: #### B MP3, HEMDF #### [address] [address] [place], [place] Platelets (Bld) [#/Vol] 231 10*3/uL Normal 140-440 [facility] Comment on above: Performed By: #### B MP3, HEMDF #### [place] [address] [place], [place] RBC (Bld) [#/Vol] 3.42 10*6/uL Low 4.40-5.90 [facility] Comment on above: Performed By: #### B MP3, HEMDF #### [facility] [address] [place] [address] WBC (Bld) [#/Vol] 7.5 10*3/uL Normal 3.6-10.7 [facility] Comment on above: Performed By: #### B MP3, HEMDF #### [facility] [address] [place] [address] XR CHEST PORTABLEon 02-24-20 Patient Name: OSWALDO CORLEY Diagnostic Radiology ACCESSION EXAM DATE/TIME PROCEDURE ORDERING PROVIDER [id number] 02/24/2020 07:23 EST CR Chest Portable MD SULLIVAN MAZEN E CPT code 08711 Reason For Exam (CR Chest Portable) sob [...] RISA Transcribed Date and Time: 02/24/2020 8:24 [facility] [place] [place] Nolan Meier Incoming Radiology Results From [facility] - 02/24/2020 8:26 AM EST Patient Name: OSWALDO CORLEY Diagnostic Radiology ACCESSION EXAM DATE/TIME PROCEDURE ORDERING PROVIDER [id number] 02/24/2020 07:23 EST CR Chest Portable MD SULLIVAN MAZEN E CPT code 34100 Reason For Exam (CR Chest Portable) sob [...] RISA Transcribed Date and Time: 02/24/2020 8:24 [place], [place] Add On Lab Teston 02-23-2020 Sodium [Moles/Vol] Accepted [place], [place] Comment on above: Specimen available & acceptable for analysis. Test Performed by [id number] [place] [address] Add on test from HISon 02-22 Add on test from HIS Accepted Normal [facility] Comment on above: Result Comment: Spec imen available & acceptable for analysis. Performed By: #### B MP3, HEMDF #### [address] Basic Metabolic Panelon - Anion gap [Moles/Vol] 5 Normal [facility] Comment on above: Performed By: #### H IJEOMA BMP3 #### [address] Calcium [Mass/Vol] 8.5 mg/dL Normal 8.4-10.4 [facility] Comment on above: Performed By: #### H IJEOMA BMP3 #### [address] CO2 [Moles/Vol] 29 mmol/L Normal 22-30 [facility] Comment on above: Performed By: #### H IJEOMA BMP3 #### [address] Glucose [Mass/Vol] 126 mg/dL High 70-100 [facility] Comment on above: Performed By: #### H IJEOMA BMP3 #### [facility] [address], [place] Urea nitrogen [Mass/Vol] 21 mg/dL High 7-20 [facility] Comment on above: Performed By: #### H TRICEF, BMP3 #### [facility] [address], [place] Creatinine [Mass/Vol] 0.78 mg/dL Normal 0.52-1.25 [facility] Comment on above: Performed By: #### H IJEOMA BMP3 #### [address] [place] [address] GFR/1.73 sq M predicted among blacks MDRD (S/P/Bld) [Vol rate/Area] mL/min/{1.73_m2} Normal >60 [facility] Comment on above: Performed By: #### H IJEOMA BMP3 #### [facility] [address], [place] GFR/1.73 sq M predicted among non-blacks MDRD (S/P/Bld) [Vol rate/Area] 86.7 mL/min/{1.73_m2} Normal >60 [facility] Comment on above: Result Comment: KDIG O [...] Performed By: #### H IJEOMA BMP3 #### [address] [place] [address] Chloride [Moles/Vol] 101 mmol/L Normal 98-107 [facility] Comment on above: Performed By: #### H RENETTA RAPHAEL3 #### [facility] [address] [place] [address] Potassium [Moles/Vol] 4.6 mmol/L Normal 3.5-5.1 [facility] Comment on above: Performed By: #### H RENETTA RAPHAEL3 #### [facility] [address] [place] [address] Sodium [Moles/Vol] 135 mmol/L Normal 135-145 [facility] Comment on above: Performed By: #### H ERNETTA RAPHAEL3 #### [facility] [address] [place] [address] Anion gap [Moles/Vol] 5 mmol/L [place], [place] Calcium [Mass/Vol] 8.5 mg/dL 8.4 - 10. 4 mg/dL [place], [place] Chloride [Moles/Vol] 101 mmol/L 98 - 10 7 mmol/L [place] CO2 [Moles/Vol] 29 mmol/L 22 - 30 mmol/L [place] Creatinine [Mass/Vol] 0.78 mg/dL 0.52 - 1.25 mg/dL [place] EGFR IF NonAfrican Lebanese 86.7 mL/min >60 [place] Comment on above: KDIGO guidelines pro [...] MDRD (S/P/Bld) [Vol rate/Area] mL/min/{1.73_m2} >60 mL/min [place] Glucose [Mass/Vol] 126 mg/dL High 70 - 100 mg/dL [place] Interpretation and review of laboratory results Abnormal [place] Potassium [Moles/Vol] 4.6 mmol/L 3.5 - 5.1 mmol/L [place] Sodium [Moles/Vol] 135 mmol/L 135 - 145 mmol/L [place] Urea nitrogen [Mass/Vol] 21 mg/dL High 7 - 20 mg/dL [place] Test Performed by [facility], [address] [place] [address] [place], [place] CBC auto differentialon 12-2 Absolute Baso # 0.0 10*3/uL 0 - 0.2 10*3/uL [place] Absolute Neut # 7.8 10*3/uL High 1.8 - 7 10*3/uL [place] Basophils/100 WBC (Bld) 0.1 % 0 - 2 % [place] Eosinophils (Bld) [#/Vol] 0.0 10*3/uL 0 - 0.5 10*3/uL [place] Eosinophils/100 WBC (Bld) 0.4 % Low 1 - 6 % [place] Erythrocyte distribution width (RBC) [Ratio] 14.7 % High 11.5 - 14.5 % [place] Granulocytes/100 WBC (Bld) 89.0 % High 40 - 80 % [place] Hematocrit (Bld) [Volume fraction] 31.0 % Low 40 - 52 % [place] Hemoglobin (Bld) [Mass/Vol] 10.4 g/dL Low 13 - 18 g/dL [place] Interpretation and review of laboratory results Abnormal [place] Lymphocytes (Bld) [#/Vol] 0.4 10*3/uL Low 1 - 4.3 10*3/uL [place] Lymphocytes/100 WBC (Bld) 4.4 % Low 20 - 40 % [place] MCH (RBC) [Entitic mass] 30.3 pg 26 - 34 pg [place] MCHC (RBC) [Mass/Vol] 33.6 % 32 - 36 % [place] MCV (RBC) [Entitic vol] 90.0 fL 80 - 98 fL [place] Monocytes (Bld) [#/Vol] 0.5 10*3/uL 0 - 0.8 10*3/uL [place] Monocytes/100 WBC (Bld) 6.1 % 2 - 10 % [place] Platelet mean volume (Bld) [Entitic vol] 6.7 fL Low 7.4 - 10.4 fL [place] Platelets (Bld) [#/Vol] 216 10*3/uL 140 - 440 10*3/uL [place] RBC (Bld) [#/Vol] 3.45 10*6/uL Low 4.4 - 5.9 10*6/uL [place] WBC (Bld) [#/Vol] 8.7 10*3/uL 3.6 - 10.7 10*3/uL [place] Test Performed by [facility], [address] [place] [id number] [place] [address] CR Chest Portableon 02-23-20 20 CR Chest Portable Patient Name: OSWALDO CORLEY Diagnostic Radiology ACCESSION EXAM DATE/TIME PROCEDURE ORDERING PROVIDER [id number] 02/23/2020 12:35 EST CR Chest Portable Aneudy CORNEJO, REBECCA HARDIN CPT code 73712 Reason For Exam (CR Chest Portable) SOB [...] AHMAD Transcribed Date and Time: 02/23/2020 1:05 Normal [facility] CR Chest Portable Patient Name: OSWALDO CORLEY Diagnostic Radiology ACCESSION EXAM DATE/TIME PROCEDURE ORDERING PROVIDER [id number] 02/23/2020 06:49 EST CR Chest Portable MD SULLIVAN MAZEN E CPT code 77655 Reason For Exam (CR Chest Portable) sob [...] Transcribed Date and Time: 02/23/2020 7:17 Normal [facility] Complete Urinalysison 2019 Appearance (U) Turbid Abnormal Clear [facility] Comment on above: Result Comment: . Performed By: #### B MP3, HEMDF #### [facility] [address], [place] Bacteria LM.HPF (Urine sed) [#/Area] Few Abnormal Negative System Comment on above: Result Comment: . Performed By: #### B MP3, HEMDF #### [address], [place] Bilirubin,Urine Negative Normal Negative [facility] Comment on above: Result Comment: . Performed By: #### B MP3, HEMDF #### [address], [place] Cast, Hyaline 0 - 2 Abnormal Negative [facility] Comment on above: Result Comment: . Performed By: #### B MP3, HEMDF #### [facility] [address], [place] Color (U) Yellow Normal Lt. Yellow [facility] Comment on above: Result Comment: . Performed By: #### B MP3, HEMDF #### [address], [place] Glucose Ql (U) Normal Normal Normal (<70) [facility] Comment on above: Result Comment: . Performed By: #### B MP3, HEMDF #### [facility] [address], [place] Ketone,Urine 10 mg/dL Abnormal Negative [facility] Comment on above: Result Comment: . Performed By: #### B MP3, HEMDF #### [facility] [address], [place] Leukocytes,Urine Negative Normal Negative [facility] Comment on above: Result Comment: . Performed By: #### B MP3, HEMDF #### [address], [place] Mucous Threads Few Normal Negative [facility] Comment on above: Result Comment: . Performed By: #### B MP3, HEMDF #### [address], [place] Nitrites,Urine Negative Normal Negative [facility] Comment on above: Result Comment: . Performed By: #### B MP3, HEMDF #### [facility] [address], [place] Occult Blood,Urine 0.2 mg/dL Abnormal Negative [facility] Comment on above: Result Comment: . Performed By: #### B MP3, HEMDF #### [facility] [address], [place] pH (U) 5.5 Normal 5.0-8.0 [facility] Comment on above: Result Comment: . Performed By: #### B MP3, HEMDF #### [facility] [address], [place] Protein (U) [Mass/Vol] 30 mg/dL Abnormal Negative [facility] Comment on above: Result Comment: . Performed By: #### B MP3, HEMDF #### [facility] [address], [place] RBC LM.HPF (Urine sed) [#/Area] 51 - 100 Abnormal 0-2 [facility] Comment on above: Result Comment: . Performed By: #### B MP3, HEMDF #### [facility] [address], [place] Specific [place],Urine 1.028 Normal 1.005 - 1.030 [facility] Comment on above: Result Comment: . Performed By: #### B MP3, HEMDF #### [facility] [address], [place] Squamous Epithelial Negative Normal 3-5 [facility] Comment on above: Result Comment: . Performed By: #### B MP3, HEMDF #### [facility] [address], [place] Urobilinogen,Urine Normal Normal Normal (0-1) [facility] Comment on above: Result Comment: . Performed By: #### B MP3, HEMDF #### [facility] [address], [place] WBC LM.HPF (Urine sed) [#/Area] 3 - 5 Normal 0-5 [facility] Comment on above: Result Comment: . Performed By: #### B MP3, HEMDF #### [place] [address] [address], [place] Hemogram w/ Autodiffon 02-22 Abs Baso Cnt 0.0 10*3/uL Normal 0.0-0.2 [facility] Comment on above: Performed By: #### H IJEOMA BMP3 #### [address] [address], [place] Abs Neutrophile Cnt 7.8 10*3/uL High 1.8-7.0 [facility] Comment on above: Performed By: #### H IJEOMA BMP3 #### [place] [place], [place] Basophils/100 WBC (Bld) 0.1 % Normal 0.0-2.0 [facility] Comment on above: Performed By: #### H IJEOMA BMP3 #### [address] [place] [place] Eosinophils (Bld) [#/Vol] 0.0 10*3/uL Normal 0.0-0.5 [facility] Comment on above: Performed By: #### H IJEOMA BMP3 #### [place] [place] Eosinophils/100 WBC (Bld) 0.4 % Low 1.0-6.0 [facility] Comment on above: Performed By: #### H IJEOMA BMP3 #### [place] [place] Erythrocyte distribution width (RBC) [Ratio] 14.7 % High 11.5-14.5 [facility] Comment on above: Performed By: #### H IJEOMA BMP3 #### [place] [place] Granulocytes/100 WBC (Bld) 89.0 % High 40.0-80.0 [facility] Comment on above: Performed By: #### H IJEOMA BMP3 #### [place] [place] Hematocrit (Bld) [Volume fraction] 31.0 % Low 40.0-52.0 [facility] Comment on above: Performed By: #### H IJEOMA BMP3 #### [address] Hemoglobin (Bld) [Mass/Vol] 10.4 g/dL Low 13.0-18.0 [facility] Comment on above: Performed By: #### H IJEOMA BMP3 #### [address] [address] [place], [place] Lymphocytes (Bld) [#/Vol] 0.4 10*3/uL Low 1.0-4.3 [facility] Comment on above: Performed By: #### Kareem RAPHAEL BMP3 #### [address] Lymphocytes/100 WBC (Bld) 4.4 % Low 20.0-40.0 [facility] Comment on above: Performed By: #### Kareem RAPHAEL BMP3 #### [address] MCH (RBC) [Entitic mass] 30.3 pg Normal 26.0-34.0 [facility] Comment on above: Performed By: #### H IJEOMA BMP3 #### [address] MCHC (RBC) [Mass/Vol] 33.6 % Normal 32.0-36.0 [facility] Comment on above: Performed By: #### H IJEOMA BMP3 #### [address] MCV (RBC) [Entitic vol] 90.0 fL Normal 80.0-98.0 [facility] Comment on above: Performed By: #### H IJEOMA BMP3 #### [address] Monocytes (Bld) [#/Vol] 0.5 10*3/uL Normal 0.0-0.8 [facility] Comment on above: Performed By: #### H IJEOMA BMP3 #### [facility] [address], [place] Monocytes/100 WBC (Bld) 6.1 % Normal 2.0-10.0 [facility] Comment on above: Performed By: #### H EMDF, BMP3 #### [facility] [address], [place] Platelet mean volume (Bld) [Entitic vol] 6.7 fL Low 7.4-10.4 [facility] Comment on above: Performed By: #### H EMDF, BMP3 #### [facility] [address], [place] Platelets (Bld) [#/Vol] 216 10*3/uL Normal 140-440 [facility] Comment on above: Performed By: #### H EMDF, BMP3 #### [place], [place] RBC (Bld) [#/Vol] 3.45 10*6/uL Low 4.40-5.90 [facility] Comment on above: Performed By: #### H EMDF, BMP3 #### [facility] [address], [place] WBC (Bld) [#/Vol] 8.7 10*3/uL Normal 3.6-10.7 [facility] Comment on above: Performed By: #### H EMDF, BMP3 #### [facility] [address], [place] Urinalysison 02-23-2020 Appearance (U) Turbid Abnormal Clear NA [place] Comment on above: . Bacteria, UA Few Abnormal Negative /[HPF] [place] Comment on above: . Bilirubin Urine Negative Negative mg/dL [place] Comment on above: . Color (U) Yellow Lt. Yellow NA [place] Comment on above: . Glucose, Ur Normal Normal (<70) mg/dL [place] Comment on above: . Hyaline Casts, UA 0-2 Abnormal Negative /[LPF] [place] Comment on above: . Interpretation and review of laboratory results Abnormal [place] Ketones Ql (U) 10 mg/dL Abnormal Negative [place] Comment on above: . LEUKOCYTES, UA Negative Negative Nelly/uL [place] Comment on above: . Mucous Threads Few Negative /[LPF] [place] Comment on above: . Nitrite, Urine Negative Negative NA [place] Comment on above: . Occult Blood,Urine 0.2 mg/dL Abnormal Negative [place] Comment on above: . pH (U) 5.5 [pH] [place] Comment on above: . Protein (U) [Mass/Vol] 30 mg/dL Abnormal Negative [place] Comment on above: . RBC (U) [#/Vol] 51-100 Abnormal 0 - 2 /[HPF] [place] Comment on above: . Specific [place], Urine 1.028 [place] Comment on above: . Squam Epithel, UA Negative 3 - 5 /[HPF] [place] Comment on above: . Urobilinogen, Urine Normal Normal (0-1) mg/dL [place] Comment on above: . WBC, UA 3-5 0 - 5 /[HPF] [place] Comment on above: . Test Performed by [facility], [address] [place] [address] [place] XR CHEST PORTABLEon 02-23-20 Patient Name: OSWALDO CORLEY Diagnostic Radiology ACCESSION EXAM DATE/TIME PROCEDURE ORDERING PROVIDER [id number] 02/23/2020 12:35 EST CR Chest Portable Aneudy CORNEJO, REBECCA HARDIN CPT code 74991 Reason For Exam (CR Chest Portable) SOB [...] AHMAD Transcribed Date and Time: 02/23/2020 1:05 [facility], [employer], [employer] Incoming Radiology Results From [facility] - 02/23/2020 1:12 PM EST Patient Name: OSWALDO CORLEY Diagnostic Radiology ACCESSION EXAM DATE/TIME PROCEDURE ORDERING PROVIDER [id number] 02/23/2020 12:35 EST CR Chest Portable Aneudy CORNEJO, REBECCA HARDIN CPT code 89611 Reason For Exam (CR Chest Portable) SOB [...] AHMAD Transcribed Date and Time: 02/23/2020 1:05 [facility], [employer], [employer] Incoming Radiology Results From [facility] - 02/23/2020 7:23 AM EST Patient Name: OSWALDO CORLEY Diagnostic Radiology ACCESSION EXAM DATE/TIME PROCEDURE ORDERING PROVIDER [id number] 02/23/2020 06:49 EST CR Chest Portable MD SULLIVAN MAZEN E CPT code 06113 Reason For Exam (CR Chest Portable) sob [...] NELSON Transcribed Date and Time: 02/23/2020 7:17 [place], [place] Patient Name: OSWALDO CORLEY Diagnostic Radiology ACCESSION EXAM DATE/TIME PROCEDURE ORDERING PROVIDER [id number] 02/23/2020 06:49 EST CR Chest Portable MD SULLIVAN MAZEN E CPT code 95434 Reason For Exam (CR Chest Portable) sob [...] NELSON Transcribed Date and Time: 02/23/2020 7:17 [facility], [place] Add On Lab Teston 02-22-2020 Sodium [Moles/Vol] Accepted [place], [place] Comment on above: Specimen available & acceptable for analysis. Test Performed by [facility], [address] [place] [id number] [place] [address] Add on test from HISon 02-21 Add on test from HIS Accepted Normal [facility] Comment on above: Result Comment: Spec imen available & acceptable for analysis. Performed By: #### A DDON #### [address] [address], [place] Basic Metabolic Panelon 01-31 Calcium [Mass/Vol] 8.5 mg/dL Normal 8.4-10.4 [facility] Comment on above: Performed By: #### H IJEOMA BMP3 #### [address] [address] [place], [place] Glucose [Mass/Vol] 141 mg/dL High 70-100 [facility] Comment on above: Performed By: #### H IJEOMA BMP3 #### [address] [address] [place], [place] Urea nitrogen [Mass/Vol] 30 mg/dL High 7-20 [facility] Comment on above: Performed By: #### H IJEOMA BMP3 #### [address] [address] [place], [place] Anion gap [Moles/Vol] 7 Normal [facility] Comment on above: Performed By: #### H IJEOMA BMP3 #### [place] [place], [place] CO2 [Moles/Vol] 20 mmol/L Low 22-30 [facility] Comment on above: Performed By: #### H RENETTA RAPHAEL3 #### [facility] [address] [place], [place] Creatinine [Mass/Vol] 0.80 mg/dL Normal 0.52-1.25 [facility] Comment on above: Performed By: #### H IJEOMA BMP3 #### [facility] [address] [place] [place], [place] GFR/1.73 sq M predicted among blacks MDRD (S/P/Bld) [Vol rate/Area] mL/min/{1.73_m2} Normal >60 [facility] Comment on above: Performed By: #### H RENETTA RAPHAEL3 #### [address] GFR/1.73 sq M predicted among non-blacks MDRD (S/P/Bld) [Vol rate/Area] 85.8 mL/min/{1.73_m2} Normal >60 [facility] Comment on above: Result Comment: KDIG O [...] Performed By: #### H IJEOMA BMP3 #### [facility] [address] [place] [place], [place] Potassium [Moles/Vol] 5.2 mmol/L High 3.5-5.1 [facility] Comment on above: Result Comment: Slig htly hemolysed, interpret with caution. Performed By: #### H EMDF, BMP3 #### [facility] [address], [place] Sodium [Moles/Vol] 133 mmol/L Low 135-145 [facility] Comment on above: Performed By: #### H EMDF, BMP3 #### [facility] [address], [place] Chloride [Moles/Vol] 107 mmol/L Normal 98-107 [facility] Comment on above: Performed By: #### H EMDF, BMP3 #### [facility] [address], [place] Anion gap [Moles/Vol] 7 mmol/L [place], [place] Calcium [Mass/Vol] 8.5 mg/dL 8.4 - 10. 4 mg/dL [place] Chloride [Moles/Vol] 107 mmol/L 98 - 10 7 mmol/L [place] CO2 [Moles/Vol] 20 mmol/L Low 22 - 30 mmol/L [place] Creatinine [Mass/Vol] 0.8 mg/dL 0.52 - 1.25 mg/dL [place] EGFR IF NonAfrican Lebanese 85.8 mL/min >60 [place] Comment on above: KDIGO guidelines pro [...] MDRD (S/P/Bld) [Vol rate/Area] mL/min/{1.73_m2} >60 mL/min [place] Glucose [Mass/Vol] 141 mg/dL High 70 - 100 mg/dL [place] Interpretation and review of laboratory results Abnormal [place] Potassium [Moles/Vol] 5.2 mmol/L High 3.5 - 5.1 mmol/L [place] Comment on above: Slightly hemolysed, interpret with caution. Sodium [Moles/Vol] 133 mmol/L Low 135 - 145 mmol/L [place] Urea nitrogen [Mass/Vol] 30 mg/dL High 7 - 20 mg/dL [place] Test Performed by [address] [address] [place] CBC auto differentialon 12-2 Absolute Baso # 0.0 10*3/uL 0 - 0.2 10*3/uL [place] Absolute Neut # 8.8 10*3/uL High 1.8 - 7 10*3/uL [place] Basophils/100 WBC (Bld) 0.2 % 0 - 2 % [place] Eosinophils (Bld) [#/Vol] 0.0 10*3/uL 0 - 0.5 10*3/uL [place] Eosinophils/100 WBC (Bld) 0.4 % Low 1 - 6 % [place] Erythrocyte distribution width (RBC) [Ratio] 14.9 % High 11.5 - 14.5 % [place] Granulocytes/100 WBC (Bld) 90.0 % High 40 - 80 % [place] Hematocrit (Bld) [Volume fraction] 34.0 % Low 40 - 52 % [place] Hemoglobin (Bld) [Mass/Vol] 11.4 g/dL Low 13 - 18 g/dL [place] Interpretation and review of laboratory results Abnormal [place] Lymphocytes (Bld) [#/Vol] 0.3 10*3/uL Low 1 - 4.3 10*3/uL [place] Lymphocytes/100 WBC (Bld) 3.5 % Low 20 - 40 % [place] MCH (RBC) [Entitic mass] 30.3 pg 26 - 34 pg [place] MCHC (RBC) [Mass/Vol] 33.5 % 32 - 36 % [place] MCV (RBC) [Entitic vol] 90.6 fL 80 - 98 fL [place] Monocytes (Bld) [#/Vol] 0.6 10*3/uL 0 - 0.8 10*3/uL [place] Monocytes/100 WBC (Bld) 5.9 % 2 - 10 % [place] Platelet mean volume (Bld) [Entitic vol] 6.8 fL Low 7.4 - 10.4 fL [place] Platelets (Bld) [#/Vol] 233 10*3/uL 140 - 440 10*3/uL [place], [place] RBC (Bld) [#/Vol] 3.76 10*6/uL Low 4.4 - 5.9 10*6/uL [place], [place] WBC (Bld) [#/Vol] 9.7 10*3/uL 3.6 - 10.7 10*3/uL [place], [place] Test Performed by [facility], [address] [place] [id number] [place] [address] CR Chest Portableon 02-22-20 20 CR Chest Portable Patient Name: OSWALDO CORLEY Diagnostic Radiology ACCESSION EXAM DATE/TIME PROCEDURE ORDERING PROVIDER [id number] 02/22/2020 07:06 EST CR Chest Portable MD SULLIVAN MAZEN E CPT code 46204 Reason For Exam (CR Chest Portable) sob [...] Transcribed Date and Time: 02/22/2020 7:30 Normal [facility] EKG 12 Leadon 02-22-2020 [place], [facility] Incoming Cardiology Results From [facility] - 02/22/2020 10:19 AM EST [facility] Test Date: 2020-02-22 Pat Name: Oswaldo Corley Department: 1A Room: T219 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 Food: SHANIA : 1940 Requested By: ALETHEA MENDOZA Order Number: [id number] Reading MD: Malgorzata Man Measurements Intervals [place] Rate: 81 P: 52 OK: 181 QRS: 41 QRSD: 85 T: 25 QT: 378 QTc: 439 Interpretive Statements Sinus rhythm Abnormal R-wave progression, early transition Electronically Signed On 02-22-2020 10:18:14 EST by [facility]ata [facility] Test Date: 2020-02-22 Pat Name: Oswaldo Corley Department: 1A Room: T219 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 Food: FREDERICK : 1940 Requested By: ALETHEA MENDOZA Order Number: [id number] Reading MD: Malgorzata Man Measurements Intervals [place] Rate: 81 P: 52 OK: 181 QRS: 41 QRSD: 85 T: 25 QT: 378 QTc: 439 Interpretive Statements Sinus rhythm Abnormal R-wave progression, early transition Electronically Signed On 02-22-2020 10:18:14 EST by Malgorzata arGEN-Xsofia [place], [place] Hemogram w/ Autodiffon 02-21 Abs Baso Cnt 0.0 10*3/uL Normal 0.0-0.2 [facility] Comment on above: Performed By: #### H EMDF, BMP3 #### [facility] [address], [place] Abs Neutrophile Cnt 8.8 10*3/uL High 1.8-7.0 [facility] Comment on above: Performed By: #### H EMDF, BMP3 #### [place] [address] [address], [place] Basophils/100 WBC (Bld) 0.2 % Normal 0.0-2.0 [facility] Comment on above: Performed By: #### H EMDF, BMP3 #### [place] [address] [address], [place] Eosinophils (Bld) [#/Vol] 0.0 10*3/uL Normal 0.0-0.5 [facility] Comment on above: Performed By: #### H EMDF BMP3 #### [place] [address] [place], [place] Eosinophils/100 WBC (Bld) 0.4 % Low 1.0-6.0 [facility] Comment on above: Performed By: #### H EMDF BMP3 #### [place] [address] [address], [place] Erythrocyte distribution width (RBC) [Ratio] 14.9 % High 11.5-14.5 [facility] Comment on above: Performed By: #### H EMDF, BMP3 #### [place] [address] [address], [place] Granulocytes/100 WBC (Bld) 90.0 % High 40.0-80.0 [facility] Comment on above: Performed By: #### H EMDF, BMP3 #### [place] [address] [place], [place] Hematocrit (Bld) [Volume fraction] 34.0 % Low 40.0-52.0 [facility] Comment on above: Performed By: #### H EMDF, BMP3 #### [place] [address] [place], [place] Hemoglobin (Bld) [Mass/Vol] 11.4 g/dL Low 13.0-18.0 [facility] Comment on above: Performed By: #### H IJEOMA BMP3 #### [place] [address] [address], [place] Lymphocytes (Bld) [#/Vol] 0.3 10*3/uL Low 1.0-4.3 [facility] Comment on above: Performed By: #### H IJEOMA BMP3 #### [place] [address] [address], [place] Lymphocytes/100 WBC (Bld) 3.5 % Low 20.0-40.0 [facility] Comment on above: Performed By: #### H IJEOMA BMP3 #### [address] MCH (RBC) [Entitic mass] 30.3 pg Normal 26.0-34.0 [facility] Comment on above: Performed By: #### H IJEOMA BMP3 #### [address] MCHC (RBC) [Mass/Vol] 33.5 % Normal 32.0-36.0 [facility] Comment on above: Performed By: #### H IJEOMA BMP3 #### [address] MCV (RBC) [Entitic vol] 90.6 fL Normal 80.0-98.0 [facility] Comment on above: Performed By: #### H IJEOMA BMP3 #### [place] [address] [address], [place] Monocytes (Bld) [#/Vol] 0.6 10*3/uL Normal 0.0-0.8 [facility] Comment on above: Performed By: #### H EMDYuri BMP3 #### [address] Monocytes/100 WBC (Bld) 5.9 % Normal 2.0-10.0 [facility] Comment on above: Performed By: #### H IJEOMA BMP3 #### [place] [address] [place] [address] Platelet mean volume (Bld) [Entitic vol] 6.8 fL Low 7.4-10.4 [facility] Comment on above: Performed By: #### H TRICEF, BMP3 #### [facility] [address] [place] [address] Platelets (Bld) [#/Vol] 233 10*3/uL Normal 140-440 [facility] Comment on above: Performed By: #### H EMDF, BMP3 #### [facility] [address], [place] RBC (Bld) [#/Vol] 3.76 10*6/uL Low 4.40-5.90 [facility] Comment on above: Performed By: #### H EMDF, BMP3 #### [facility] [address], [place] WBC (Bld) [#/Vol] 9.7 10*3/uL Normal 3.6-10.7 [facility] Comment on above: Performed By: #### H EMDF, BMP3 #### [facility] [address], [place] XR CHEST PORTABLEon 02-22-20 [facility] Incoming Radiology Results From [facility] - 02/22/2020 7:32 AM EST Patient Name: OSWALDO CORLEY Diagnostic Radiology ACCESSION EXAM DATE/TIME PROCEDURE ORDERING PROVIDER [id number] 02/22/2020 07:06 EST CR Chest Portable MD SULLIVAN MAZEN E CPT code 81355 Reason For Exam (CR Chest Portable) sob [...] R Transcribed Date and Time: 02/22/2020 7:30 [place], [place] Patient Name: OSWALDO CORLEY Diagnostic Radiology ACCESSION EXAM DATE/TIME PROCEDURE ORDERING PROVIDER [id number] 02/22/2020 07:06 EST CR Chest Portable MD SULLIVAN MAZEN E CPT code 10101 Reason For Exam (CR Chest Portable) sob [...] R Transcribed Date and Time: 02/22/2020 7:30 [place], [place] Basic Metabolic Panelon 12 Calcium [Mass/Vol] 8.2 mg/dL Low 8.4-10.4 [facility] Comment on above: Performed By: #### B MP3, HEMDF #### [facility] [address] [place] [address] Anion gap [Moles/Vol] 8 Normal [facility] Comment on above: Performed By: #### B MP3, HEMDF #### [facility] [address], [place] CO2 [Moles/Vol] 22 mmol/L Normal 22-30 [facility] Comment on above: Performed By: #### B MP3, HEMDF #### [facility] [address], [place] Creatinine [Mass/Vol] 0.76 mg/dL Normal 0.52-1.25 [facility] Comment on above: Performed By: #### B MP3, HEMDF #### [place] [address] [address], [place] GFR/1.73 sq M predicted among blacks MDRD (S/P/Bld) [Vol rate/Area] mL/min/{1.73_m2} Normal >60 [facility] Comment on above: Performed By: #### B MP3, HEMDF #### [facility] [address], [place] GFR/1.73 sq M predicted among non-blacks MDRD (S/P/Bld) [Vol rate/Area] 87.6 mL/min/{1.73_m2} Normal >60 [facility] Comment on above: Result Comment: KDIG O [...] Performed By: #### B MP3, HEMDF #### [facility] [address], [place] Glucose [Mass/Vol] 144 mg/dL High 70-100 [facility] Comment on above: Performed By: #### B MP3, HEMDF #### [facility] [address], [place] Urea nitrogen [Mass/Vol] 22 mg/dL High 7-20 [facility] Comment on above: Performed By: #### B MP3, HEMDF #### [facility] [address], [place] Chloride [Moles/Vol] 104 mmol/L Normal 98-107 [facility] Comment on above: Performed By: #### B MP3, HEMDF #### [facility] [address], [place] Potassium [Moles/Vol] 5.0 mmol/L Normal 3.5-5.1 [facility] Comment on above: Performed By: #### B MP3, HEMDF #### [facility] [address], [place] Sodium [Moles/Vol] 134 mmol/L Low 135-145 [facility] Comment on above: Performed By: #### B MP3, HEMDF #### [facility] [address], [place] Anion gap [Moles/Vol] 8 mmol/L [place], [place] Calcium [Mass/Vol] 8.2 mg/dL Low 8.4 - 10. 4 mg/dL [place] Chloride [Moles/Vol] 104 mmol/L 98 - 10 7 mmol/L [place] CO2 [Moles/Vol] 22 mmol/L 22 - 30 mmol/L [place] Creatinine [Mass/Vol] 0.76 mg/dL 0.52 - 1.25 mg/dL [place] EGFR IF NonAfrican Lebanese 87.6 mL/min >60 [place] Comment on above: KDIGO guidelines pro [...] MDRD (S/P/Bld) [Vol rate/Area] mL/min/{1.73_m2} >60 mL/min [place] Glucose [Mass/Vol] 144 mg/dL High 70 - 100 mg/dL [place] Interpretation and review of laboratory results Abnormal [place] Potassium [Moles/Vol] 5.0 mmol/L 3.5 - 5.1 mmol/L [place] Sodium [Moles/Vol] 134 mmol/L Low 135 - 145 mmol/L [place] Urea nitrogen [Mass/Vol] 22 mg/dL High 7 - 20 mg/dL [place] Test Performed by [facility], [address] [place] [address] [place] CBC auto differentialon 12-2 Absolute Baso # 0.0 10*3/uL 0 - 0.2 10*3/uL [place] Absolute Neut # 8.5 10*3/uL High 1.8 - 7 10*3/uL [place] Basophils/100 WBC (Bld) 0.3 % 0 - 2 % [place] Eosinophils (Bld) [#/Vol] 0.0 10*3/uL 0 - 0.5 10*3/uL [place] Eosinophils/100 WBC (Bld) 0.0 % Low 1 - 6 % [place] Erythrocyte distribution width (RBC) [Ratio] 14.6 % High 11.5 - 14.5 % [place] Granulocytes/100 WBC (Bld) 89.6 % High 40 - 80 % [place] Hematocrit (Bld) [Volume fraction] 33.4 % Low 40 - 52 % [place] Hemoglobin (Bld) [Mass/Vol] 11.1 g/dL Low 13 - 18 g/dL [place] Interpretation and review of laboratory results Abnormal [place] Lymphocytes (Bld) [#/Vol] 0.3 10*3/uL Low 1 - 4.3 10*3/uL [place] Lymphocytes/100 WBC (Bld) 2.9 % Low 20 - 40 % [place] MCH (RBC) [Entitic mass] 30.1 pg 26 - 34 pg [place] MCHC (RBC) [Mass/Vol] 33.1 % 32 - 36 % [place] MCV (RBC) [Entitic vol] 90.8 fL 80 - 98 fL [place] Monocytes (Bld) [#/Vol] 0.7 10*3/uL 0 - 0.8 10*3/uL [place] Monocytes/100 WBC (Bld) 7.2 % 2 - 10 % [place] Platelet mean volume (Bld) [Entitic vol] 6.8 fL Low 7.4 - 10.4 fL [place] Platelets (Bld) [#/Vol] 229 10*3/uL 140 - 440 10*3/uL [place] RBC (Bld) [#/Vol] 3.68 10*6/uL Low 4.4 - 5.9 10*6/uL [place] WBC (Bld) [#/Vol] 9.5 10*3/uL 3.6 - 10.7 10*3/uL [place] Test Performed by [facility], [address] [place] [address] [place], [place] CR Chest Portableon 02-21-20 20 CR Chest Portable Patient Name: OSWALDO CORLEY Diagnostic Radiology ACCESSION EXAM DATE/TIME PROCEDURE ORDERING PROVIDER [id number] 02/21/2020 07:37 EST CR Chest Portable MD NATE, RODRICK Davila CPT code 30108 Reason For Exam (CR Chest Portable) sob [...] Transcribed Date and Time: 02/21/2020 8:12 Normal [facility] Hemogram w/ Autodiffon 02-20 Abs Baso Cnt 0.0 10*3/uL Normal 0.0-0.2 [facility] Comment on above: Performed By: #### B MP3, HEMDF #### [facility] [address], [place] Abs Neutrophile Cnt 8.5 10*3/uL High 1.8-7.0 [facility] Comment on above: Performed By: #### B MP3, HEMDF #### [place] [address] [place], [place] Basophils/100 WBC (Bld) 0.3 % Normal 0.0-2.0 [facility] Comment on above: Performed By: #### B MP3, HEMDF #### [facility] [address], [place] Eosinophils (Bld) [#/Vol] 0.0 10*3/uL Normal 0.0-0.5 [facility] Comment on above: Performed By: #### B MP3, HEMDF #### [place] [address] [address], [place] Eosinophils/100 WBC (Bld) 0.0 % Low 1.0-6.0 [facility] Comment on above: Performed By: #### B MP3, HEMDF #### [place] [address] [address] Erythrocyte distribution width (RBC) [Ratio] 14.6 % High 11.5-14.5 [facility] Comment on above: Performed By: #### B MP3, HEMDF #### [place] [address] [address] Granulocytes/100 WBC (Bld) 89.6 % High 40.0-80.0 [facility] Comment on above: Performed By: #### B MP3, HEMDF #### [place] [address] [address] Hematocrit (Bld) [Volume fraction] 33.4 % Low 40.0-52.0 [facility] Comment on above: Performed By: #### B MP3, HEMDF #### [place] [address] [address] Hemoglobin (Bld) [Mass/Vol] 11.1 g/dL Low 13.0-18.0 [facility] Comment on above: Performed By: #### B MP3, HEMDF #### [place] [address] [address], [place] Lymphocytes (Bld) [#/Vol] 0.3 10*3/uL Low 1.0-4.3 [facility] Comment on above: Performed By: #### B MP3, HEMDF #### [place] [address] [address] Lymphocytes/100 WBC (Bld) 2.9 % Low 20.0-40.0 [facility] Comment on above: Performed By: #### B MP3, HEMDF #### [place] [address] [address] MCH (RBC) [Entitic mass] 30.1 pg Normal 26.0-34.0 [facility] Comment on above: Performed By: #### B MP3, HEMDF #### [facility] [address], [place] MCHC (RBC) [Mass/Vol] 33.1 % Normal 32.0-36.0 [facility] Comment on above: Performed By: #### B MP3, HEMDF #### [place] [address] [address] [place] MCV (RBC) [Entitic vol] 90.8 fL Normal 80.0-98.0 [facility] Comment on above: Performed By: #### B MP3, HEMDF #### [place] [address] [address] [place] Monocytes (Bld) [#/Vol] 0.7 10*3/uL Normal 0.0-0.8 [facility] Comment on above: Performed By: #### B MP3, HEMDF #### [place] [address] [address] Monocytes/100 WBC (Bld) 7.2 % Normal 2.0-10.0 [facility] Comment on above: Performed By: #### B MP3, HEMDF #### [place] [address] [address] [place] Platelet mean volume (Bld) [Entitic vol] 6.8 fL Low 7.4-10.4 [facility] Comment on above: Performed By: #### B MP3, HEMDF #### [place] [address] [address], [place] Platelets (Bld) [#/Vol] 229 10*3/uL Normal 140-440 [facility] Comment on above: Performed By: #### B MP3, HEMDF #### [place] [address] [address] [place] RBC (Bld) [#/Vol] 3.68 10*6/uL Low 4.40-5.90 [facility] Comment on above: Performed By: #### B MP3, HEMDF #### [facility] [address] [place] [address] WBC (Bld) [#/Vol] 9.5 10*3/uL Normal 3.6-10.7 [facility] Comment on above: Performed By: #### B MP3, HEMDF #### [facility] [address] [place] [address] XR CHEST PORTABLEon 02-21-20 20 [facility], [facility] 8:14 AM EST Patient Name: OSWALDO CORLEY Diagnostic Radiology ACCESSION EXAM DATE/TIME PROCEDURE ORDERING PROVIDER [id number] 02/21/2020 07:37 EST CR Chest Portable MD SULLIVAN MAZEN E CPT code 70865 Reason For Exam (CR Chest Portable) sob [...] R Transcribed Date and Time: 02/21/2020 8:12 [facility], [place] Patient Name: OSWALDO CORLEY Diagnostic Radiology ACCESSION EXAM DATE/TIME PROCEDURE ORDERING PROVIDER [id number] 02/21/2020 07:37 EST CR Chest Portable MD SULLIVAN MAZEN E CPT code 65419 Reason For Exam (CR Chest Portable) sob [...] R Transcribed Date and Time: 02/21/2020 8:12 [place], [place] CR Chest Portableon 02-20-20 CR Chest Portable [id number]iology ACCESSION EXAM DATE/TIME PROCEDURE ORDERING PROVIDER [id number] 02/20/2020 14:41 EST CR Chest Portable MD SULLIVAN MAZEN E CPT code 33702 Reason For Exam (CR Chest Portable) s/p [...] Transcribed Date and Time: 02/20/2020 2:43 Normal [facility] Surgical Pathologyon 020 Surgical Pathology [id number] [facility] PATHOLOGY AND LABORATORY MEDICINE [address] [place] [address] FINAL SURGICAL PATHOLOGY REPORT NAME: OSWALDO CORLEY : 1940 79 Y M BILLING NO.: [id number] LOCATION: [facility] PROCEDURE 02/20/2020 DATE: SURGEON: OLIVERIO HERRMANN M.D. [...] (pT): pT1b Regional Lymph Nodes (pN): pNX HORTICULTURAL NURSERY ASSISTANT TUMOR BLOCK(S): A1, A6, A7 CRH/CRH Signature> [...] cut surfaces with areas of hemorrhage. Additional branch customer service representative sections are submitted. Cassette Summary: A1- [...] Sectioning through reveals no gross lesions. Multiple branch customer service representative sections are submitted in two cassettes. CRH/CRH Disclaimer: The following statement applies to all immunohistochemistry, in situ hybridization, molecular studies, and immunofluorescence testing. The use of one or more reagents in the above tests is regulated as an analyte specific reagent (ASR). These tests were developed and their performance characteristics determined by the clinical laboratories of [facility]. They have not been cleared by the [...] negativity on decalcified specimens. Professional Performing Location: [address] [address]. DEPARTMENT OF PATHOLOGY AND LABORATORY MEDICINE [place], [place] [address] Normal [facility] XR CHEST PORTABLEon 02-20-20 [place], [facility] Incoming Radiology Results From [facility] - 02/20/2020 2:48 PM EST Patient Name: OSWALDO CORLEY Diagnostic Radiology ACCESSION EXAM DATE/TIME PROCEDURE ORDERING PROVIDER [id number] 02/20/2020 14:41 EST CR Chest Portable MD SULLIVAN MAZEN E CPT code 48032 Reason For Exam (CR Chest Portable) s/p [...] LAURA Transcribed Date and Time: 02/20/2020 2:43 [place], [place] Patient Name: [id number] Diagnostic Radiology ACCESSION EXAM DATE/TIME PROCEDURE ORDERING PROVIDER [id number] 02/20/2020 14:41 EST CR Chest Portable MD SULLIVAN MAZEN E CPT code 50448 Reason For Exam (CR Chest Portable) s/p [...] LAURA Transcribed Date and Time: 02/20/2020 2:43 [place], [place] SARS-CoV-2 (MICRO DEPT)on SARS-CoV-2 (MICRO DEPT) SARS-CoV-2 --> Status: F Not Detected. Expected Result: Not Detected _ Real-time, RT-PCR performed on the Qiagen QIAquant System by the [facility] Negative results do not preclude SARS-CoV-2 infection and should not be used as the sole basis for treatment or other patient management decisions. This assay was developed and its performance characteristics determined by the [facility]. This test has been developed under an Emergency Use Authorization (EUA) granted by the FDA for the qualitative detection of SARS-CoV-2 nucleic acid (validation review pending). Expected Result: Not Detected _ Real-time, RT-PCR performed on the Qiagen QIAquant System by the [facility] Negative results do not preclude SARS-CoV-2 infection and should not be used as the sole basis for treatment or other patient management decisions. This assay was developed and its performance characteristics determined by the [facility]. This test has been developed under an Emergency Use Authorization (EUA) granted by the FDA for the qualitative detection of SARS-CoV-2 nucleic acid (validation review pending). Normal [facility] Comment on above: Performed By: #### B MP3, HEMDF #### [facility] [address] [place] [address] Basic Metabolic Panelon 12 Calcium [Mass/Vol] 9.6 mg/dL Normal 8.4-10.4 [facility] Comment on above: Performed By: #### H GHCT, BMP3M ####[facility] [address] [place] [address] Glucose [Mass/Vol] 96 mg/dL Normal 70-100 [facility] Comment on above: Performed By: #### H GHCT, BMP3M ####[facility] [address] [place], [place] Anion gap [Moles/Vol] 8 Normal [facility] Comment on above: Performed By: #### H GHCT, BMP3M ####[facility] [place], [place] CO2 [Moles/Vol] 26 mmol/L Normal 22-30 [facility] Comment on above: Performed By: #### H GHCT, BMP3M ####[facility] [id number] [place], [place] Creatinine [Mass/Vol] 0.84 mg/dL Normal 0.52-1.25 [facility] Comment on above: Performed By: #### H GHCT, BMP3M ####[place] [place], [place] GFR/1.73 sq M predicted among blacks MDRD (S/P/Bld) [Vol rate/Area] mL/min/{1.73_m2} Normal >60 [facility] Comment on above: Performed By: #### H GHCT, BMP3M ####[facility] [id number] [place], [place] GFR/1.73 sq M predicted among non-blacks MDRD (S/P/Bld) [Vol rate/Area] 84.1 mL/min/{1.73_m2} Normal >60 [facility] Comment on above: Result Comment: KDIG O [...] renal tubular creatinine secretion. Performed By: #### RENETTA ZAMUDIO3M ####[facility] [place], [place] Urea nitrogen [Mass/Vol] 22 mg/dL High 7-20 [facility] Comment on above: Performed By: #### RENETTA ZAMUDIO3M ####[facility] [place], [place] Chloride [Moles/Vol] 106 mmol/L Normal 98-107 [facility] Comment on above: Performed By: #### H RENETTA VALDES3M ####[place] [place], [place] Potassium [Moles/Vol] 4.3 mmol/L Normal 3.5-5.1 [facility] Comment on above: Performed By: #### RENETTA ZAMUDIO3M ####[place] [place], [place] Sodium [Moles/Vol] 140 mmol/L Normal 135-145 [facility] Comment on above: Performed By: #### RENETTA ZAMUDIO3M ####[address] [place], [place] Basic Metabolic Panel w/ Ref eve to MGon 02-16-2020 Anion gap [Moles/Vol] 8 mmol/L [place] Calcium [Mass/Vol] 9.6 mg/dL 8.4 - 10. 4 mg/dL [place] Chloride [Moles/Vol] 106 mmol/L 98 - 10 7 mmol/L [place] CO2 [Moles/Vol] 26 mmol/L 22 - 30 mmol/L [place] Creatinine [Mass/Vol] 0.84 mg/dL 0.52 - 1.25 mg/dL [place] EGFR IF NonAfrican Lebanese 84.1 mL/min >60 [place] Comment on above: KDIGO guidelines pro [...] MDRD (S/P/Bld) [Vol rate/Area] mL/min/{1.73_m2} >60 mL/min [place] Glucose [Mass/Vol] 96 mg/dL 70 - 100 mg/dL [place] Interpretation and review of laboratory results Abnormal [place] Potassium [Moles/Vol] 4.3 mmol/L 3.5 - 5.1 mmol/L [place] Sodium [Moles/Vol] 140 mmol/L 135 - 145 mmol/L [place] Urea nitrogen [Mass/Vol] 22 mg/dL High 7 - 20 mg/dL [place] Test Performed by [facility], [address] [place] [address] [place] Hemoglobin AND Hematocriton 02-16-2020 Hematocrit (Bld) [Volume fraction] 41.6 % Normal 40.0-52.0 [facility] Comment on above: Performed By: #### H KATT BMP3M #### [place] [address] [place], [place] Hemoglobin (Bld) [Mass/Vol] 13.7 g/dL Normal 13.0-18.0 [facility] Comment on above: Performed By: #### H PJCT BMP3M #### [address] Hemoglobin and Hematocrit, B loodon 02-16-2020 Hematocrit (Bld) [Volume fraction] 41.6 % 40 - 52 % [place] Hemoglobin (Bld) [Mass/Vol] 13.7 g/dL 13 - 18 g/dL [place] Test Performed by [address] [address] [place] MRSA by PCRon 02-16-2020 Interpretation and review of laboratory results Abnormal [place] Staph Aureus Sc Methicillin-sensitiv e S. aureus (MSSA) present. No MRSA detected. Negative nasal MRSA PCR has a high negative predictive value for MRSA pneumonia. Consider stopping vancomycin if no other clinical indication. Positive results do not necessarily indicate active infection with MSSA. Contact Antimicrobial Stewardship for further recommendations. The analytical performance characteristics of this assay have been determined by [facility] in accordance with CLIA regulations. The modifications have not been cleared or approved by the U. S. Food and Drug Administration; however, the FDA has determined that such clearance or approval is not necessary. Abnormal [place], [place] Test Performed by [address] [address] [place], [place] Metabolic Panelon 02-16-2020 Sodium [Moles/Vol] Negative [place], [place] PT w/ CT Scan Skull Base to Midthighon 02-16-2020 PT w/ CT Scan Skull Base to Midthigh Patient Name: OSWALDO CORLEY PET ACCESSION EXAM DATE/TIME PROCEDURE ORDERING PROVIDER [id number] 02/16/2020 15:24 EST PT w/ CT Scan Skull Base HERRMANN, OLIVERIO to Midthigh CPT code 52421 A9552 Reason For Exam (PT w/ CT [...] Transcribed Date and Time: 02/17/2020 8:45 Normal [facility] Staph Aureus Complete Nasalo n 02-16-2020 Staph [...] of this assay have been determined by [facility] in accordance with CLIA regulations. The modifications [...] of this assay have been determined by [facility] in accordance with CLIA regulations. The modifications have not been cleared or approved by the U. S. Food and Drug Administration; however, the FDA has determined that such clearance or approval is not necessary. Abnormal [employer] Comment on above: Performed By: #### S APCR ####[employer] [place] [address] TS GELon 02-16-2020 TS GEL ABO Group: O Rh, Gel: NEG Antibody Screen Gel: NEG [facility] Comment on above: Performed By: #### T SGL ####[employer] TYPE AND SCREENon 02-16-2020 Sodium [Moles/Vol] O [place], [place] Test Performed by [facility], [address] [place] [address] [place], [place] No Panel Information SARS-CoV-2 & FLU Antigen (Rapid) [facility] Work Phone: Vital Signs Date Time Vital Sign Value Performing Clinician Facility 09-28-2024 14:33-0400 Body temperature 96.6 [degF] Dr. Mei Cummins MD Work Phone: [facility] 09-28-2024 14:33-0400 Diastolic blood pressure 56 mm[Hg] Dr. Mei Cummins MD Work Phone: [facility] 09-28-2024 14:33-0400 Heart rate 69 /min Dr. Mei Cummins MD Work Phone: [facility] 09-28-2024 14:33-0400 Inhaled oxygen flow rate 4 L/min Dr. Mei Cummins MD Work Phone: [facility] 09-28-2024 14:33-0400 Respiratory rate 16 /min Dr. Mei Cummins MD Work Phone: 6(634)076-880854 [place] [address] 09-28-2024 14:33-0400 Systolic blood pressure 121 mm[Hg] Dr. Mei Cummins MD Work Phone: 6(861)007-131954 [place] [address] 09-17-2024 13:14-0400 Body temperature 97.8 [degF] Dr. Mei Cummins MD Work Phone: 6(713)498-006554 [place] [address] 09-17-2024 13:14-0400 Diastolic blood pressure 74 mm[Hg] Dr. Mei Cummins MD Work Phone: 6(283)514-450954 [place] [address] 09-17-2024 13:14-0400 Heart rate 76 /min Dr. Mei Cummins MD Work Phone: 9(041)726-971954 [place] [address] 09-17-2024 13:14-0400 Respiratory rate 22 /min Dr. Mei Cummins MD Work Phone: 5(047)458-680954 [place] [address] 09-17-2024 13:14-0400 SaO2% (BldA) [Mass fraction] 97 % Dr. Mei Cummins MD Work Phone: 6(419)913-189554 [place] [address] 09-17-2024 13:14-0400 Systolic blood pressure 104 mm[Hg] Dr. Mei Cummins MD Work Phone: 3(194)903-636454 [place] [address] 09-17-2024 11:06-0400 Body mass index (BMI) [Ratio] 22.4 kg/m2 Dr. Mei Cummins MD Work Phone: 9(605)925-480654 [place] [address] 09-17-2024 11:06-0400 Body weight 73.[address] Mei Cmumins MD Work Phone: 2(015)496-798554 [place] [address] 09-17-2024 10:50-0400 Body height 180.[address] Mei Cummins MD Work Phone: 1(184)966-413254 [place] [address] 09-14-2024 14:49-0400 Body temperature 97.2 [degF] Dr. Mei Cummins MD Work Phone: 6(639)256-050554 [place] [address] 09-14-2024 14:49-0400 Diastolic blood pressure 58 mm[Hg] Dr. Mei Cummins MD Work Phone: 2(105)951-677854 [place] [address] 09-14-2024 14:49-0400 Heart rate 73 /min Dr. Mei Cummins MD Work Phone: 8(153)053-620954 [place] [address] 09-14-2024 14:49-0400 Respiratory rate 18 /min Dr. Mei Cummins MD Work Phone: 0(712)865-482354 [place] [address] 09-14-2024 14:49-0400 Systolic blood pressure 97 mm[Hg] Dr. Mei Cummins MD Work Phone: 2(821)243-422654 [place] [address] 08-24-2024 14:21-0400 Body mass index (BMI) [Ratio] 22.4 kg/m2 Dr. Mei Cummins MD Work Phone: 4(120)394-234954 [place] [address] 08-24-2024 14:21-0400 Body temperature 96.8 [degF] Dr. Mie Cummins MD Work Phone: 9(611)529-755554 [place] [address] 08-24-2024 14:21-0400 Diastolic blood pressure 53 mm[Hg] Dr. Mei Cummins MD Work Phone: 1(946)820-525854 [place] [address] 08-24-2024 14:21-0400 Heart rate 71 /min Dr. Mei Cummins MD Work Phone: 7(393)796-695454 [place] [address] 08-24-2024 14:21-0400 Inhaled oxygen concentration 95 % Dr. Mei Cummins MD Work Phone: 5(794)216-413254 [place] [address] 08-24-2024 14:21-0400 Inhaled oxygen flow rate 4 L/min Dr. Mei Cummins MD Work Phone: 5(961)406-293154 [place] [address] 08-24-2024 14:21-0400 Respiratory rate 20 /min Dr. Mei Cummins MD Work Phone: 4(346)644-455554 [place] [address] 08-24-2024 14:21-0400 Systolic blood pressure 123 mm[Hg] Dr. Mei Cummins MD Work Phone: 9(244)432-821954 [place] [address] 08-17-2024 14:00-0400 SaO2% (BldA) [Mass fraction] 93 % Dr. Mei Cummins MD Work Phone: [facility] 08-01-2024 12:58-0400 Body mass index (BMI) [Ratio] 23.15 kg/m2 Bela Manzano MD Work Phone: [facility] 08-01-2024 12:58-0400 Body weight 75.3 kg Bela Manzano MD Work Phone: [facility] 08-01-2024 12:58-0400 Diastolic blood pressure 61 mm[Hg] Bela Manzano MD Work Phone: [facility] 08-01-2024 12:58-0400 Heart rate 66 /min Bela Manzano MD Work Phone: [facility] 08-01-2024 12:58-0400 Respiratory rate 17 /min Bela Manzano MD Work Phone: [facility] 08-01-2024 12:58-0400 SaO2% (BldA) [Mass fraction] 93 % Bela Manzano MD Work Phone: [facility] 08-01-2024 12:58-0400 Systolic blood pressure 98 mm[Hg] Bela Manzano MD Work Phone: [facility] 07-31-2024 00:35-0400 Body weight 74.[address] Mei Cummins MD Work Phone: [facility] 07-27-2024 10:58-0400 Body mass index (BMI) [Ratio] 22.4 kg/m2 Dr. Mei Cummins MD Work Phone: [facility] 07-27-2024 10:58-0400 Body temperature 97.1 [degF] Dr. Mei Cummins MD Work Phone: [facility] 07-27-2024 10:58-0400 Diastolic blood pressure 60 mm[Hg] Dr. Mei Cummins MD Work Phone: [facility] 07-27-2024 10:58-0400 Heart rate 91 /min Dr. Mei Cummins MD Work Phone: 4(616)658-638154 [place] [address] 07-27-2024 10:58-0400 Respiratory rate 16 /min Dr. Mei Cummins MD Work Phone: 7(115)406-203954 [place] [address] 07-27-2024 10:58-0400 Systolic blood pressure 122 mm[Hg] Dr. Mei Cummins MD Work Phone: 9(201)888-044754 [place] [address] 07-13-2024 14:06-0400 Body mass index (BMI) [Ratio] 22.4 kg/m2 Dr. Mei Cummins MD Work Phone: 9(053)626-054254 [place] [address] 07-13-2024 14:06-0400 Body temperature 96.9 [degF] Dr. Mei Cummins MD Work Phone: 6(819)545-004354 [place] [address] 07-13-2024 14:06-0400 Diastolic blood pressure 65 mm[Hg] Dr. Mei Cummins MD Work Phone: 4(541)441-507954 [place] [address] 07-13-2024 14:06-0400 Heart rate 75 /min Dr. Mei Cummins MD Work Phone: 5(499)968-918054 [place] [address] 07-13-2024 14:06-0400 Respiratory rate 18 /min Dr. Mei Cummins MD Work Phone: 2(525)077-660754 [place] [address] 07-13-2024 14:06-0400 Systolic blood pressure 98 mm[Hg] Dr. Mei Cummins MD Work Phone: 8(641)075-490354 [place] [address] 07-06-2024 14:11-0400 Body mass index (BMI) [Ratio] 22.4 kg/m2 Dr. Mei Cummins MD Work Phone: 0(259)956-640754 [place] [address] 07-06-2024 14:11-0400 Body temperature 97 [degF] Dr. Mei Cummins MD Work Phone: 2(925)635-880154 [place] [address] 07-06-2024 14:11-0400 Diastolic blood pressure 49 mm[Hg] Dr. Mei Cummins MD Work Phone: 2(853)413-467554 [place] [address] 07-06-2024 14:11-0400 Heart rate 72 /min Dr. Mei Cummins MD Work Phone: [facility] 07-06-2024 14:11-0400 Inhaled oxygen flow rate 4 L/min Dr. Mei Cummins MD Work Phone: [facility] 07-06-2024 14:11-0400 Respiratory rate 22 /min Dr. Mei Cummins MD Work Phone: [facility] 07-06-2024 14:11-0400 SaO2% (BldA) [Mass fraction] 93 % Dr. Mei Cummins MD Work Phone: [facility] 07-06-2024 14:11-0400 Systolic blood pressure 104 mm[Hg] Dr. Mei Cummins MD Work Phone: [facility] 07-01-2024 15:09-0400 Body temperature 97.2 [degF] Treatment [facility] Work Phone: [facility] 07-01-2024 15:09-0400 Diastolic blood pressure 62 mm[Hg] [facility] Work Phone: [facility] 07-01-2024 15:09-0400 Heart rate 73 /min [facility] Work Phone: [facility] 07-01-2024 15:09-0400 Respiratory rate 20 /min [facility] Work Phone: [facility] 07-01-2024 15:09-0400 SaO2% (BldA) [Mass fraction] 95 % [facility] Work Phone: [facility] 07-01-2024 15:09-0400 Systolic blood pressure 114 mm[Hg] [facility] Work Phone: [facility] 07-01-2024 13:51-0400 Body mass index (BMI) [Ratio] 23.58 kg/m2 Mei Cummins MD Work Phone: [facility] 07-01-2024 13:51-0400 Body weight 76.7 kg Mei Cummins MD Work Phone: [facility] 07-01-2024 13:51-0400 Diastolic blood pressure 60 mm[Hg] Mei Cummins MD Work Phone: [facility] 07-01-2024 13:51-0400 Heart rate 72 /min Mei Cummins MD Work Phone: [facility] 07-01-2024 13:51-0400 Respiratory rate 20 /min Mei Cummins MD Work Phone: [facility] 07-01-2024 13:51-0400 SaO2% (BldA) [Mass fraction] 97 % Mei Cummins MD Work Phone: [facility] 07-01-2024 13:51-0400 Systolic blood pressure 102 mm[Hg] Mei Cummins MD Work Phone: [facility] 06-30-2024 00:29-0400 Body weight 74.[address] Mei Cummins MD Work Phone: [facility] 06-29-2024 15:27-0400 Body mass index (BMI) [Ratio] 23.01 kg/m2 [facility] Work Phone: [facility] 06-29-2024 15:27-0400 Body temperature 97.39 [degF] [facility] Work Phone: [facility] 06-29-2024 15:27-0400 Body weight 74.84 kg [facility] Work Phone: [facility] 06-29-2024 15:27-0400 Diastolic blood pressure 66 mm[Hg] [facility] Work Phone: [facility] 06-29-2024 15:27-0400 Heart rate 95 /min [facility] Work Phone: [facility] 06-29-2024 15:27-0400 Respiratory rate 22 /min [facility] Work Phone: [facility] 06-29-2024 15:27-0400 SaO2% (BldA) [Mass fraction] 95 % [facility] Work Phone: [facility] 06-29-2024 15:27-0400 Systolic blood pressure 109 mm[Hg] [facility] Work Phone: [facility] 06-27-2024 14:00-0400 Body temperature 97.5 [degF] [facility] Work Phone: [facility] 06-27-2024 14:00-0400 Diastolic blood pressure 67 mm[Hg] [facility] Work Phone: [facility] 06-27-2024 14:00-0400 Heart rate 90 /min [facility] Work Phone: [facility] 06-27-2024 14:00-0400 Systolic blood pressure 107 mm[Hg] Treatment [facility] Work Phone: [facility] 06-22-2024 13:16-0400 Body mass index (BMI) [Ratio] 22.4 kg/m2 Dr. Mei Cummins MD Work Phone: [facility] 06-22-2024 13:16-0400 Body temperature 96.8 [degF] Dr. Mei Cummins MD Work Phone: [facility] 06-22-2024 13:16-0400 Diastolic blood pressure 51 mm[Hg] Dr. Mei Cummins MD Work Phone: [facility] 06-22-2024 13:16-0400 Heart rate 84 /min Dr. Mei Cummins MD Work Phone: [facility] 06-22-2024 13:16-0400 Respiratory rate 20 /min Dr. Mei Cummins MD Work Phone: [facility] 06-22-2024 13:16-0400 Systolic blood pressure 136 mm[Hg] Dr. Mei Cummins MD Work Phone: [facility] 06-21-2024 13:00-0400 Body temperature 97.59 [degF] Treatment [facility] Work Phone: [facility] 06-21-2024 13:00-0400 Diastolic blood pressure 64 mm[Hg] Treatment [facility] Work Phone: [facility] 06-21-2024 13:00-0400 Heart rate 72 /min [facility] Work Phone: [facility] 06-21-2024 13:00-0400 Systolic blood pressure 104 mm[Hg] Treatment [facility] Work Phone: [facility] 06-15-2024 11:37-0400 Body mass index (BMI) [Ratio] 22.4 kg/m2 Dr. Tristan Salter DO Work Phone: [facility] 06-15-2024 11:37-0400 Body temperature 97.3 [degF] Dr. Tristan Salter DO Work Phone: [facility] 06-15-2024 11:37-0400 Diastolic blood pressure 47 mm[Hg] Dr. Tristan Salter DO Work Phone: [facility] 06-15-2024 11:37-0400 Heart rate 82 /min Dr. Tristan Salter DO Work Phone: [facility] 06-15-2024 11:37-0400 Inhaled oxygen flow rate 4 L/min Dr. Tristan Salter DO Work Phone: [facility] 06-15-2024 11:37-0400 Respiratory rate 20 /min Dr. Tristan Salter DO Work Phone: [facility] 06-15-2024 11:37-0400 Systolic blood pressure 127 mm[Hg] Dr. Tristan Salter DO Work Phone: [facility] 06-08-2024 10:43-0400 Body mass index (BMI) [Ratio] 22.4 kg/m2 Dr. Tristan Salter DO Work Phone: [facility] 06-08-2024 10:43-0400 Body temperature 97.1 [degF] Dr. Tristan Salter DO Work Phone: [facility] 06-08-2024 10:43-0400 Diastolic blood pressure 58 mm[Hg] Dr. Tristan Salter DO Work Phone: [facility] 06-08-2024 10:43-0400 Heart rate 86 /min Dr. Tristan Salter DO Work Phone: [facility] 06-08-2024 10:43-0400 Inhaled oxygen flow rate 4 L/min Dr. Tristan Salter DO Work Phone: [facility] 06-08-2024 10:43-0400 Respiratory rate 20 /min Dr. Tristan Salter DO Work Phone: [facility] 06-08-2024 10:43-0400 Systolic blood pressure 106 mm[Hg] Dr. Tristan Salter DO Work Phone: [facility] 06-05-2024 12:58-0400 Body temperature 97.5 [degF] Dr. Mei Cummins MD Work Phone: 3(595)782-299995 [address] 06-05-2024 12:58-0400 Diastolic blood pressure 52 mm[Hg] Dr. Mei Cummins MD Work Phone: [facility] 06-05-2024 12:58-0400 Heart rate 61 /min Dr. Mei Cummins MD Work Phone: 9(137)088-164146 [place] [address] 06-05-2024 12:58-0400 Inhaled oxygen flow rate 3 L/min Dr. Mei Cummins MD Work Phone: 2(793)146-169246 [place] [address] 06-05-2024 12:58-0400 Respiratory rate 20 /min Dr. Mei Cummins MD Work Phone: [facility] 06-05-2024 12:58-0400 SaO2% (BldA) [Mass fraction] 98 % Dr. Mei Cummins MD Work Phone: [facility] 06-05-2024 12:58-0400 Systolic blood pressure 102 mm[Hg] Dr. Mei Cummins MD Work Phone: [facility] 06-04-2024 10:33-0400 Body height 180.[address] Mei Cummins MD Work Phone: 1(181)308-900754 [place] [address] 06-04-2024 10:33-0400 Body weight [address] Mei Cummins MD Work Phone: 3(128)597-230354 [place] [address] 06-03-2024 19:15-0400 Body mass index (BMI) [Ratio] 23.1 kg/m2 Dr. Mei Cummins MD Work Phone: 5(286)608-799154 [place] [address] 06-03-2024 18:02-0400 Diastolic blood pressure 63 mm[Hg] Dr. Mei Cummins MD Work Phone: 1(528)134-731054 [place] [address] 06-03-2024 18:02-0400 Heart rate 91 /min Dr. Mei Cummins MD Work Phone: 5(084)959-040954 [place] [address] 06-03-2024 18:02-0400 Respiratory rate 14 /min Dr. Mei Cummins MD Work Phone: 2(718)728-034354 [place] [address] 06-03-2024 18:02-0400 SaO2% (BldA) [Mass fraction] 100 % Dr. Mei Cummins MD Work Phone: 5(516)871-746954 [place] [address] 06-03-2024 18:02-0400 Systolic blood pressure 92 mm[Hg] Dr. Mei Cummins MD Work Phone: 9(934)141-159854 [place] [address] 06-03-2024 17:00-0400 Body temperature 98.4 [degF] Dr. Mei Cummins MD Work Phone: 4(130)749-977854 [place] [address] 06-03-2024 15:00-0400 Body height 182.[address] Mei Cummins MD Work Phone: 4(327)774-676754 [place] [address] 06-03-2024 15:00-0400 Body mass index (BMI) [Ratio] 22.4 kg/m2 Dr. Mei Cummins MD Work Phone: 1(340)596-367754 [place] [address] 06-03-2024 15:00-0400 Body weight 75.[address] Mei Cummins MD Work Phone: 6(425)970-410254 [place] [address] 06-01-2024 13:37-0400 Diastolic blood pressure 58 mm[Hg] Kailash Click OIL DELIVERER.MEDICAL DEVICE ASSEMBLER Work Phone: [facility] 06-01-2024 13:37-0400 Heart rate 76 /min Kailash Click OIL DELIVERER.MEDICAL DEVICE ASSEMBLER Work Phone: [facility] 06-01-2024 13:37-0400 Respiratory rate 22 /min Kailash Click OIL DELIVERER.MEDICAL DEVICE ASSEMBLER Work Phone: [facility] 06-01-2024 13:37-0400 SaO2% (BldA) [Mass fraction] 96 % Kailash Click OIL DELIVERER.MEDICAL DEVICE ASSEMBLER Work Phone: [facility] 06-01-2024 13:37-0400 Systolic blood pressure 112 mm[Hg] Kailash Click OIL DELIVERER.MEDICAL DEVICE ASSEMBLER Work Phone: [facility] 06-01-2024 11:49-0400 Body mass index (BMI) [Ratio] 22.4 kg/m2 Dr. Mei Cummins MD Work Phone: [facility] 06-01-2024 11:49-0400 Body temperature 96.8 [degF] Dr. Mei Cummins MD Work Phone: [facility] 06-01-2024 11:49-0400 Diastolic blood pressure 65 mm[Hg] Dr. Mei Cummins MD Work Phone: [facility] 06-01-2024 11:49-0400 Heart rate 73 /min Dr. Mei Cummins MD Work Phone: [facility] 06-01-2024 11:49-0400 Respiratory rate 18 /min Dr. Mei Cummins MD Work Phone: [facility] 06-01-2024 11:49-0400 Systolic blood pressure 132 mm[Hg] Dr. Mei Cummins MD Work Phone: [facility] 05-31-2024 00:22-0400 Body weight 74.[address] Mei Cummins MD Work Phone: [facility] 05-31-2024 00:22-0400 Inhaled oxygen flow rate 5 L/min Dr. Mei Cummins MD Work Phone: 2(247)472-087954 [place] [address] 05-31-2024 00:22-0400 SaO2% (BldA) [Mass fraction] 95 % Dr. Mei Cummins MD Work Phone: 9(290)535-942754 [place] [address] 05-24-2024 14:00-0400 Body temperature 97.6 [degF] Dr. Mei Cummins MD Work Phone: 4(947)997-788854 [place] [address] 05-24-2024 14:00-0400 Diastolic blood pressure 59 mm[Hg] Dr. Mei Cummins MD Work Phone: 6(944)993-069354 [place] [address] 05-24-2024 14:00-0400 Heart rate 73 /min Dr. Mei Cummins MD Work Phone: 2(052)208-089254 [place] [address] 05-24-2024 14:00-0400 Inhaled oxygen flow rate 2 L/min Dr. Mei Cummins MD Work Phone: 0(604)010-102654 [place] [address] 05-24-2024 14:00-0400 Respiratory rate 18 /min Dr. Mei Cummins MD Work Phone: 3(397)818-486354 [place] [address] 05-24-2024 14:00-0400 SaO2% (BldA) [Mass fraction] 100 % Dr. Mei Cummins MD Work Phone: 4(261)166-845254 [place] [address] 05-24-2024 14:00-0400 Systolic blood pressure 124 mm[Hg] Dr. Mei Cummins MD Work Phone: 1(648)042-498154 [place] [address] 05-23-2024 09:19-0400 Body height 182.[address] Mei Cummins MD Work Phone: 5(708)472-260954 [place] [address] 05-23-2024 09:19-0400 Body weight 76.[address] Mei Cummins MD Work Phone: 7(020)210-785554 [place] [address] 05-22-2024 15:58-0400 Diastolic blood pressure 70 mm[Hg] Dr. Mei Cummins MD Work Phone: 5(484)718-912754 [place] [address] 05-22-2024 15:58-0400 Heart rate 102 /min Dr. Mei Cummins MD Work Phone: 9(565)602-414954 [place] [address] 05-22-2024 15:58-0400 Inhaled oxygen flow rate 4 L/min Dr. Mei Cummins MD Work Phone: 2(287)810-467154 [place] [address] 05-22-2024 15:58-0400 Respiratory rate 21 /min Dr. Mei Cummins MD Work Phone: 7(901)495-776154 [place] [address] 05-22-2024 15:58-0400 SaO2% (BldA) [Mass fraction] 100 % Dr. eMi Cummins MD Work Phone: 8(253)602-748754 [place] [address] 05-22-2024 15:58-0400 Systolic blood pressure 128 mm[Hg] Dr. Mei Cummins MD Work Phone: 6(031)822-357054 [place] [address] 05-22-2024 15:25-0400 Body temperature 98.4 [degF] Dr. Mei Cummins MD Work Phone: 3(829)840-328154 [place] [address] 05-22-2024 12:15-0400 Body mass index (BMI) [Ratio] 22.9 kg/m2 Dr. Mei Cummins MD Work Phone: 4(631)401-839654 [place] [address] 05-22-2024 12:15-0400 Body weight 76.[address] Mei Cummins MD Work Phone: 9(740)864-838654 [place] [address] 05-22-2024 12:03-0400 Body height 182.[address] Mei Cummins MD Work Phone: 1(158)767-588354 [place] [address] 05-11-2024 14:37-0400 Body mass index (BMI) [Ratio] 22.4 kg/m2 Dr. Mei Cummins MD Work Phone: 2(002)771-253754 [place] [address] 05-11-2024 14:37-0400 Body temperature 97 [degF] Dr. Mei Cummins MD Work Phone: 1(136)885-185154 [place] [address] 05-11-2024 14:37-0400 Diastolic blood pressure 52 mm[Hg] Dr. Mei Cummins MD Work Phone: 4(801)900-292154 [place] [address] 05-11-2024 14:37-0400 Heart rate 69 /min Dr. Mei Cummins MD Work Phone: 8(119)258-020754 [place] [address] 05-11-2024 14:37-0400 Inhaled oxygen flow rate 5 L/min Dr. Mei Cummins MD Work Phone: 0(157)660-308254 [place] [address] 05-11-2024 14:37-0400 Respiratory rate 16 /min Dr. Mei Cummins MD Work Phone: 2(156)756-051454 [place] [address] 05-11-2024 14:37-0400 SaO2% (BldA) [Mass fraction] 95 % Dr. Mei Cummins MD Work Phone: 9(716)822-858454 [place] [address] 05-11-2024 14:37-0400 Systolic blood pressure 136 mm[Hg] Dr. Mei Cummins MD Work Phone: 2(438)833-038254 [place] [address] 04-30-2024 01:23-0500 Body weight 74.[address] Mei Cummins MD Work Phone: 1(250)045-850254 [place] [address] 04-27-2024 14:10-0500 Body mass index (BMI) [Ratio] 22.4 kg/m2 Dr. Mei Cummins MD Work Phone: 3(724)864-832254 [place] [address] 04-27-2024 14:10-0500 Body temperature 97 [degF] Dr. Mei Cummins MD Work Phone: 4(384)624-936454 [place] [address] 04-27-2024 14:10-0500 Diastolic blood pressure 48 mm[Hg] Dr. Mei Cummins MD Work Phone: 9(291)846-043754 [place] [address] 04-27-2024 14:10-0500 Heart rate 67 /min Dr. Mei Cummins MD Work Phone: 4(892)085-326554 [place] [address] 04-27-2024 14:10-0500 Respiratory rate 18 /min Dr. Mei Cummins MD Work Phone: 9(331)680-989754 [place] [address] 04-27-2024 14:10-0500 Systolic blood pressure 120 mm[Hg] Dr. Mei Cummins MD Work Phone: 2(818)581-303854 [place] [address] 04-14-2024 14:39-0500 Diastolic blood pressure 84 mm[Hg] Betito Mauro MD Work Phone: [facility] 04-14-2024 14:39-0500 Heart rate 73 /min Betito Mauro MD Work Phone: [facility] 04-14-2024 14:39-0500 SaO2% (BldA) [Mass fraction] 100 % Betito Mauro MD Work Phone: [facility] Comment on above: 4L 04-14-2024 14:39-0500 Systolic blood pressure 145 mm[Hg] Betito Mauro MD Work Phone: [facility] 04-13-2024 14:21-0500 Inhaled oxygen flow rate 5 L/min Dr. Mei Cummins MD Work Phone: [facility] 04-02-2024 02:44-0500 Body weight 74.[address] Mei Cummins MD Work Phone: 8(039)405-201554 [place] [address] 03-30-2024 14:16-0500 Body mass index (BMI) [Ratio] 22.4 kg/m2 Dr. Mei Cummins MD Work Phone: 7(591)077-426795 [address] 03-30-2024 14:16-0500 Body temperature 97.3 [degF] Dr. Mei Cummins MD Work Phone: 6(934)816-934846 [place] [address] 03-30-2024 14:16-0500 Body weight 74.[address] Mei Cummins MD Work Phone: [facility] 03-30-2024 14:16-0500 Diastolic blood pressure 71 mm[Hg] Dr. Mei Cummins MD Work Phone: 5(288)924-158146 [place] [address] 03-30-2024 14:16-0500 Heart rate 78 /min Dr. Mei Cummins MD Work Phone: 9(075)430-675746 [facility] [place] [address] 03-30-2024 14:16-0500 Inhaled oxygen flow rate 4 L/min Dr. Mei Cummins MD Work Phone: 6(482)[phone] [place] [address] 03-30-2024 14:16-0500 Respiratory rate 20 /min Dr. Mei Cummins MD Work Phone: [facility] 03-30-2024 14:16-0500 Systolic blood pressure 141 mm[Hg] Dr. Mei Cummins MD Work Phone: [facility] 03-21-2024 15:08-0500 Body mass index (BMI) [Ratio] 23.71 kg/m2 Salazar Robbinsi DO Work Phone: [facility] 03-21-2024 15:08-0500 Body temperature 97.5 [degF] Salazar Robbinsi DO Work Phone: [facility] 03-21-2024 15:08-0500 Body weight 77.11 kg Salazar Robbinsi DO Work Phone: [facility] Comment on above: Pt stated 03-21-2024 15:08-0500 Diastolic blood pressure 66 mm[Hg] Salazar Robbinsi DO Work Phone: [facility] 03-21-2024 15:08-0500 Heart rate 83 /min Salazar Robbinsi DO Work Phone: [facility] 03-21-2024 15:08-0500 SaO2% (BldA) [Mass fraction] 94 % Salazar Robbinsi DO Work Phone: [facility] 03-21-2024 15:08-0500 Systolic blood pressure 108 mm[Hg] Salazar Robbinsi DO Work Phone: [facility] 03-10-2024 16:08-0500 Diastolic blood pressure 65 mm[Hg] Betito Mauro MD Work Phone: [facility] 03-10-2024 16:08-0500 Heart rate 42 /min Betito Mauro MD Work Phone: [facility] 03-10-2024 16:08-0500 SaO2% (BldA) [Mass fraction] 99 % Betito Mauro MD Work Phone: [facility] Comment on above: 5L 03-10-2024 16:08-0500 Systolic blood pressure 125 mm[Hg] Betito Mauro MD Work Phone: [facility] 02-22-2024 15:32-0500 Heart rate 90 /min Dr. Mei Cummins MD Work Phone: [facility] 02-22-2024 15:32-0500 Respiratory rate 18 /min Dr. Mei Cummins MD Work Phone: [facility] 02-22-2024 14:12-0500 Body temperature 97.6 [degF] Dr. Mei Cummins MD Work Phone: 7(391)[phone] [place] [address] 02-22-2024 14:12-0500 Diastolic blood pressure 69 mm[Hg] Dr. Mei Cummins MD Work Phone: 3(280)[phone] [place] [address] 02-22-2024 14:12-0500 Inhaled oxygen flow rate 4 L/min Dr. Mei Cummins MD Work Phone: [facility] 02-22-2024 14:12-0500 SaO2% (BldA) [Mass fraction] 97 % Dr. Mei Cummins MD Work Phone: 4(030)[phone] [place] [address] 02-22-2024 14:12-0500 Systolic blood pressure 118 mm[Hg] Dr. Mei Cummins MD Work Phone: [facility] 02-22-2024 02:03-0500 Body mass index (BMI) [Ratio] 23.5 kg/m2 Dr. Mei Cummins MD Work Phone: [facility] 02-22-2024 02:03-0500 Body weight 76.[address] Mei Cummins MD Work Phone: [facility] 02-05-2024 11:26-0500 Diastolic blood pressure 79 mm[Hg] Betito Mauro MD Work Phone: [facility] 02-05-2024 11:26-0500 Heart rate 72 /min Betito Mauro MD Work Phone: [facility] 02-05-2024 11:26-0500 SaO2% (BldA) [Mass fraction] 96 % Betito Mauro MD Work Phone: [facility] Comment on above: 5L 02-05-2024 11:26-0500 Systolic blood pressure 144 mm[Hg] Betito Mauro MD Work Phone: [facility] 01-19-2024 13:11-0500 Diastolic blood pressure 58 mm[Hg] Kailash Click OIL DELIVERER.MEDICAL DEVICE ASSEMBLER Work Phone: [facility] 01-19-2024 13:11-0500 Heart rate 64 /min Kailash Click OIL DELIVERER.MEDICAL DEVICE ASSEMBLER Work Phone: [facility] 01-19-2024 13:11-0500 Respiratory rate 20 /min Kailash Click OIL DELIVERER.MEDICAL DEVICE ASSEMBLER Work Phone: [facility] 01-19-2024 13:11-0500 SaO2% (BldA) [Mass fraction] 96 % Kailash Click OIL DELIVERER.MEDICAL DEVICE ASSEMBLER Work Phone: [facility] Comment on above: 4L 01-19-2024 13:11-0500 Systolic blood pressure 136 mm[Hg] Kailash Click OIL DELIVERER.MEDICAL DEVICE ASSEMBLER Work Phone: [facility] 12-23-2023 13:36-0400 Diastolic blood pressure 56 mm[Hg] Twila Tannhof OIL DELIVERER.MEDICAL DEVICE ASSEMBLER Work Phone: [facility] 12-23-2023 13:36-0400 Heart rate 81 /min Twila Tannhof OIL DELIVERER.MEDICAL DEVICE ASSEMBLER Work Phone: [facility] 12-23-2023 13:36-0400 Respiratory rate 22 /min Twila Tannhof OIL DELIVERER.MEDICAL DEVICE ASSEMBLER Work Phone: [facility] 12-23-2023 13:36-0400 SaO2% (BldA) [Mass fraction] 94 % Twila Tannhof OIL DELIVERER.MEDICAL DEVICE ASSEMBLER Work Phone: [facility] 12-23-2023 13:36-0400 Systolic blood pressure 116 mm[Hg] Twila Tannhof OIL DELIVERER.MEDICAL DEVICE ASSEMBLER Work Phone: [facility] 12-21-2023 13:04-0400 Body mass index (BMI) [Ratio] 24.83 kg/m2 Bela Manzano MD Work Phone: [facility] 12-21-2023 13:04-0400 Body weight 80.74 kg Bela Manzano MD Work Phone: [facility] Comment on above: Pt unable to weight, gave verbal weight 12-21-2023 13:04-0400 Diastolic blood pressure 59 mm[Hg] Bela Manzano MD Work Phone: [facility] 12-21-2023 13:04-0400 Heart rate 76 /min Bela Manzano MD Work Phone: [facility] 12-21-2023 13:04-0400 Respiratory rate 20 /min Bela Manzano MD Work Phone: [facility] 12-21-2023 13:04-0400 SaO2% (BldA) [Mass fraction] 95 % Bela Manzano MD Work Phone: [facility] 12-21-2023 13:04-0400 Systolic blood pressure 107 mm[Hg] Bela Manzano MD Work Phone: [facility] 12-08-2023 13:28-0400 Body mass index (BMI) [Ratio] 24.55 kg/m2 Kailash Click OIL DELIVERER.MEDICAL DEVICE ASSEMBLER Work Phone: [facility] 12-08-2023 13:28-0400 Body temperature 97.81 [degF] Kailash Click OIL DELIVERER.MEDICAL DEVICE ASSEMBLER Work Phone: [facility] 12-08-2023 13:28-0400 Body weight 79.83 kg Kailash Click OIL DELIVERER.MEDICAL DEVICE ASSEMBLER Work Phone: [facility] 12-08-2023 13:28-0400 Diastolic blood pressure 71 mm[Hg] Kailash Click OIL DELIVERER.MEDICAL DEVICE ASSEMBLER Work Phone: [facility] 12-08-2023 13:28-0400 Heart rate 66 /min Kailash Click OIL DELIVERER.MEDICAL DEVICE ASSEMBLER Work Phone: [facility] 12-08-2023 13:28-0400 SaO2% (BldA) [Mass fraction] 95 % Kailash Click OIL DELIVERER.MEDICAL DEVICE ASSEMBLER Work Phone: [facility] 12-08-2023 13:28-0400 Systolic blood pressure 127 mm[Hg] Kailash Click OIL DELIVERER.MEDICAL DEVICE ASSEMBLER Work Phone: [facility] 11-19-2023 15:40-0400 Body mass index (BMI) [Ratio] 22.59 kg/m2 Andrés Moomaw OIL DELIVERER.MEDICAL DEVICE ASSEMBLER Work Phone: [facility] 11-19-2023 15:40-0400 Body temperature 97.11 [degF] Andrés Moomaw OIL DELIVERER.MEDICAL DEVICE ASSEMBLER Work Phone: [facility] 11-19-2023 15:40-0400 Body weight 73.48 kg Andrés Moomaw OIL DELIVERER.MEDICAL DEVICE ASSEMBLER Work Phone: [facility] 11-19-2023 15:40-0400 Diastolic blood pressure 76 mm[Hg] Andrés Moomaw OIL DELIVERER.MEDICAL DEVICE ASSEMBLER Work Phone: [facility] 11-19-2023 15:40-0400 Heart rate 72 /min Andrés Moomaw OIL DELIVERER.MEDICAL DEVICE ASSEMBLER Work Phone: [facility] 11-19-2023 15:40-0400 Respiratory rate 24 /min Andrés Moomaw OIL DELIVERER.MEDICAL DEVICE ASSEMBLER Work Phone: [facility] 11-19-2023 15:40-0400 SaO2% (BldA) [Mass fraction] 96 % Andrés Moomaw OIL DELIVERER.MEDICAL DEVICE ASSEMBLER Work Phone: [facility] Comment on above: 5 L/min 11-19-2023 15:40-0400 Systolic blood pressure 122 mm[Hg] Andrés Moomaw OIL DELIVERER.MEDICAL DEVICE ASSEMBLER Work Phone: [facility] 10-29-2023 13:56-0400 Body mass index (BMI) [Ratio] 22.59 kg/m2 Mei Cummins MD Work Phone: [facility] 10-29-2023 13:56-0400 Body weight 73.48 kg Mei Cummins MD Work Phone: [facility] 10-29-2023 13:56-0400 Diastolic blood pressure 70 mm[Hg] Mei Cummins MD Work Phone: [facility] 10-29-2023 13:56-0400 Heart rate 84 /min Mie Cummins MD Work Phone: [facility] 10-29-2023 13:56-0400 Respiratory rate 20 /min Mei Cummins MD Work Phone: [facility] 10-29-2023 13:56-0400 SaO2% (BldA) [Mass fraction] 97 % Mei Cummins MD Work Phone: [facility] 10-29-2023 13:56-0400 Systolic blood pressure 117 mm[Hg] Mei Cummins MD Work Phone: [facility] 09-21-2023 13:29-0400 Body mass index (BMI) [Ratio] 25.36 kg/m2 Mei Cummins MD Work Phone: [facility] 09-21-2023 13:29-0400 Body weight 82.46 kg Mei Cummins MD Work Phone: [facility] 09-21-2023 13:29-0400 Diastolic blood pressure 72 mm[Hg] Mei Cummins MD Work Phone: [facility] 09-21-2023 13:29-0400 Heart rate 66 /min Mei Cummins MD Work Phone: [facility] 09-21-2023 13:29-0400 Respiratory rate 20 /min Mei Cummins MD Work Phone: [facility] 09-21-2023 13:29-0400 SaO2% (BldA) [Mass fraction] 100 % Mei Cummins MD Work Phone: [facility] 09-21-2023 13:29-0400 Systolic blood pressure 128 mm[Hg] Mei Cummins MD Work Phone: [facility] 09-16-2023 13:58-0400 Diastolic blood pressure 72 mm[Hg] Rosalie Saul PA-C Work Phone: [facility] 09-16-2023 13:58-0400 Heart rate 74 /min Rosalie Saul PA-C Work Phone: [facility] 09-16-2023 13:58-0400 SaO2% (BldA) [Mass fraction] 98 % Rosalie Saul PA-C Work Phone: [facility] Comment on above: at 4 Liters O2 Pulse 09-16-2023 13:58-0400 Systolic blood pressure 132 mm[Hg] Rosalie Saul PA-C Work Phone: [facility] 08-18-2023 09:59-0400 Diastolic blood pressure 78 mm[Hg] Tyrell Vigil DO Work Phone: [facility] 08-18-2023 09:59-0400 Heart rate 79 /min Tyrell Gordonle DO Work Phone: [facility] 08-18-2023 09:59-0400 SaO2% (BldA) [Mass fraction] 97 % Tyrell Vigil DO Work Phone: [facility] Comment on above: 4L 08-18-2023 09:59-0400 Systolic blood pressure 148 mm[Hg] Tyrell Vigil DO Work Phone: [facility] 06-22-2023 13:08-0400 Body mass index (BMI) [Ratio] 25.38 kg/m2 Mei Cummins MD Work Phone: [facility] 06-22-2023 13:08-0400 Body weight 82.56 kg Mei Cummins MD Work Phone: [facility] 06-22-2023 13:08-0400 Diastolic blood pressure 68 mm[Hg] Mei Cummins MD Work Phone: [facility] 06-22-2023 13:08-0400 Heart rate 76 /min Mei Cummins MD Work Phone: [facility] 06-22-2023 13:08-0400 Respiratory rate 20 /min Mei Cummins MD Work Phone: [facility] 06-22-2023 13:08-0400 SaO2% (BldA) [Mass fraction] 100 % Mei Cummins MD Work Phone: [facility] 06-22-2023 13:08-0400 Systolic blood pressure 100 mm[Hg] Mei Cummins MD Work Phone: [facility] 06-08-2023 11:20-0400 Body weight 80.74 kg Bela Manzano MD Work Phone: [facility] 06-08-2023 11:20-0400 Diastolic blood pressure 82 mm[Hg] Bela Manzano MD Work Phone: [facility] 06-08-2023 11:20-0400 Heart rate 86 /min Bela Manzano MD Work Phone: [facility] 06-08-2023 11:20-0400 SaO2% (BldA) [Mass fraction] 98 % Bela Manzano MD Work Phone: [facility] 06-08-2023 11:20-0400 Systolic blood pressure 135 mm[Hg] Bela Manzano MD Work Phone: [facility] 05-28-2023 17:21-0400 Body temperature 98 [degF] Dr. Mei Cummins Work Phone: [facility] 05-28-2023 17:21-0400 Diastolic blood pressure 81 mm[Hg] Dr. Mei Cummins Work Phone: [facility] 05-28-2023 17:21-0400 Heart rate 79 /min Dr. Mei Cummins Work Phone: [facility] 05-28-2023 17:21-0400 Respiratory rate 16 /min Dr. Mei Cummins Work Phone: [facility] 05-28-2023 17:21-0400 SaO2% (BldA) [Mass fraction] 99 % Dr. Mei Cummins Work Phone: [facility] 05-28-2023 17:21-0400 Systolic blood pressure 138 mm[Hg] Dr. Mei Cummins Work Phone: [facility] 05-28-2023 16:00-0400 Inhaled oxygen flow rate 3 L/min Dr. Mei Cummins Work Phone: [facility] 05-28-2023 12:51-0400 Body height 180.[address] Mei Cummnis Work Phone: [facility] 05-28-2023 12:51-0400 Body mass index (BMI) [Ratio] 24.8 kg/m2 Dr. Mei Cummins Work Phone: [facility] 05-28-2023 12:51-0400 Body weight 80.[address] Mei Cummins Work Phone: [facility] 05-18-2023 15:54-0400 Body temperature 97.2 [degF] Salazar Masci DO Work Phone: [facility] 05-18-2023 15:54-0400 Body weight 80.74 kg Salazar Masci DO Work Phone: [facility] 05-18-2023 15:54-0400 Diastolic blood pressure 88 mm[Hg] Salazar Masci DO Work Phone: [facility] 05-18-2023 15:54-0400 Heart rate 84 /min Salazar Masci DO Work Phone: [facility] 05-18-2023 15:54-0400 SaO2% (BldA) [Mass fraction] 96 % Salazar Masci DO Work Phone: [facility] 05-18-2023 15:54-0400 Systolic blood pressure 156 mm[Hg] Salazar Masci DO Work Phone: [facility] 05-12-2023 14:02-0400 Body height 180.3 cm Rosalie Martinez PA-C Work Phone: [facility] 05-12-2023 14:02-0400 Body temperature 98.01 [degF] Rosalie Saul PA-C Work Phone: [facility] 05-12-2023 14:02-0400 Body weight 82.56 kg Rosalie Saul PA-C Work Phone: [facility] 05-12-2023 14:02-0400 Diastolic blood pressure 72 mm[Hg] Rosalie Saul PA-C Work Phone: [facility] 05-12-2023 14:02-0400 Heart rate 82 /min Rosalie Saul PA-C Work Phone: [facility] 05-12-2023 14:02-0400 Respiratory rate 22 /min Rosalie Saul PA-C Work Phone: [facility] 05-12-2023 14:02-0400 SaO2% (BldA) [Mass fraction] 98 % Rosalie Saul PA-C Work Phone: [facility] 05-12-2023 14:02-0400 Systolic blood pressure 144 mm[Hg] Rosalie Saul PA-C Work Phone: [facility] 04-14-2023 11:58-0500 Diastolic blood pressure 76 mm[Hg] Cordt Skraba OIL DELIVERER.MEDICAL DEVICE ASSEMBLER Work Phone: [facility] 04-14-2023 11:58-0500 Heart rate 92 /min Cordt Skraba OIL DELIVERER.MEDICAL DEVICE ASSEMBLER Work Phone: [facility] 04-14-2023 11:58-0500 SaO2% (BldA) [Mass fraction] 97 % Cordt Skraba OIL DELIVERER.MEDICAL DEVICE ASSEMBLER Work Phone: [facility] 04-14-2023 11:58-0500 Systolic blood pressure 117 mm[Hg] Cordt Skraba OIL DELIVERER.MEDICAL DEVICE ASSEMBLER Work Phone: [facility] 04-08-2023 15:34-0500 Body temperature 97.81 [degF] Salazar Meraz DO Work Phone: [facility] 04-08-2023 15:34-0500 Body weight 80.74 kg Salazar Meraz DO Work Phone: [facility] 04-08-2023 15:34-0500 Diastolic blood pressure 82 mm[Hg] Salazar Meraz DO Work Phone: [facility] 04-08-2023 15:34-0500 Heart rate 92 /min Salazar Meraz DO Work Phone: [facility] 04-08-2023 15:34-0500 SaO2% (BldA) [Mass fraction] 98 % Salazar Meraz DO Work Phone: [facility] 04-08-2023 15:34-0500 Systolic blood pressure 132 mm[Hg] Salazar Meraz DO Work Phone: [facility] 03-27-2023 09:29-0500 Body temperature 97.1 [degF] Dr. Mei Cummins Work Phone: [facility] 03-27-2023 09:29-0500 Diastolic blood pressure 72 mm[Hg] Dr. Mei Cummins Work Phone: [facility] 03-27-2023 09:29-0500 Heart rate 92 /min Dr. Mei Cummins Work Phone: [facility] 03-27-2023 09:29-0500 Inhaled oxygen flow rate 3 L/min Dr. Mei Cummins Work Phone: [facility] 03-27-2023 09:29-0500 Respiratory rate 18 /min Dr. Mei Cummins Work Phone: [facility] 03-27-2023 09:29-0500 SaO2% (BldA) [Mass fraction] 100 % Dr. Mei Cummins Work Phone: [facility] 03-27-2023 09:29-0500 Systolic blood pressure 137 mm[Hg] Dr. Mei Cummins Work Phone: [facility] 03-26-2023 10:07-0500 Body temperature 97.2 [degF] Dr. Mei Cummins Work Phone: [facility] 03-26-2023 10:07-0500 Diastolic blood pressure 84 mm[Hg] Dr. Mei Cummins Work Phone: [facility] 03-26-2023 10:07-0500 Heart rate 105 /min Dr. Mei Cummins Work Phone: [facility] 03-26-2023 10:07-0500 Inhaled oxygen flow rate 3 L/min Dr. Mei Cummins Work Phone: [facility] 03-26-2023 10:07-0500 Respiratory rate 18 /min Dr. Mei Cummins Work Phone: [facility] 03-26-2023 10:07-0500 SaO2% (BldA) [Mass fraction] 100 % Dr. Mei Cummins Work Phone: [facility] 03-26-2023 10:07-0500 Systolic blood pressure 116 mm[Hg] Dr. Mei Cummins Work Phone: [facility] 03-25-2023 16:59-0500 Body height 180.[address] Mei Cummins Work Phone: [facility] 03-25-2023 16:59-0500 Body mass index (BMI) [Ratio] 24.7 kg/m2 Dr. Mei Cummins Work Phone: [facility] 03-25-2023 16:59-0500 Body weight 80.[address] Mei Cummins Work Phone: [facility] 03-25-2023 15:45-0500 Body temperature 97.6 [degF] [facility] 03-25-2023 15:45-0500 Diastolic blood pressure 76 mm[Hg] [facility] 03-25-2023 15:45-0500 Heart rate 79 /min [facility] 03-25-2023 15:45-0500 Respiratory rate 18 /min [facility] 03-25-2023 15:45-0500 SaO2% (BldA) [Mass fraction] 100 % [facility] 03-25-2023 15:45-0500 Systolic blood pressure 141 mm[Hg] [facility] 03-25-2023 15:11-0500 Inhaled oxygen flow rate 4 L/min [facility] 03-25-2023 12:50-0500 Body height 180.34 cm [facility] 03-25-2023 12:50-0500 Body mass index (BMI) [Ratio] 24.4 kg/m2 [facility] 03-25-2023 12:50-0500 Body weight 79.4 kg [facility] 01-20-2023 11:20-0500 Body weight 83.46 kg Ab Calvillo MD Work Phone: [facility] 01-20-2023 11:20-0500 Diastolic blood pressure 90 mm[Hg] Ab Calvillo MD Work Phone: [facility] 01-20-2023 11:20-0500 Heart rate 91 /min Ab Calvillo MD Work Phone: [facility] 01-20-2023 11:20-0500 Respiratory rate 22 /min Ab Calvillo MD Work Phone: [facility] 01-20-2023 11:20-0500 SaO2% (BldA) [Mass fraction] 100 % Ab Calvillo MD Work Phone: [facility] 01-20-2023 11:20-0500 Systolic blood pressure 165 mm[Hg] Ab Calvillo MD Work Phone: [facility] 12-19-2022 11:39-0400 Body weight 81.56 kg Mei Cummins MD Work Phone: [facility] 12-19-2022 11:39-0400 Diastolic blood pressure 82 mm[Hg] Mei Cummins MD Work Phone: [facility] 12-19-2022 11:39-0400 Heart rate 80 /min Mei Cummins MD Work Phone: [facility] 12-19-2022 11:39-0400 Respiratory rate 20 /min Mei Cummins MD Work Phone: [facility] 12-19-2022 11:39-0400 Systolic blood pressure 126 mm[Hg] Mei Cummins MD Work Phone: [facility] 11-24-2022 15:15-0400 Heart rate 78 /min Dr. Mei Cummins Work Phone: [facility] 11-24-2022 15:15-0400 Inhaled oxygen flow rate 3 L/min Dr. Mei Cummins Work Phone: [facility] 11-24-2022 15:15-0400 Respiratory rate 15 /min Dr. Mei Cummins Work Phone: [facility] 11-24-2022 15:15-0400 SaO2% (BldA) [Mass fraction] 100 % Dr. Mei Cummins Work Phone: [facility] 11-24-2022 15:00-0400 Diastolic blood pressure 78 mm[Hg] Dr. Mei Cummins Work Phone: [facility] 11-24-2022 15:00-0400 Systolic blood pressure 148 mm[Hg] Dr. Mei Cummins Work Phone: [facility] 11-24-2022 13:55-0400 Body height 180.[address] Mei Cummins Work Phone: [facility] 11-24-2022 13:55-0400 Body mass index (BMI) [Ratio] 25.7 kg/m2 Dr. Mei Cummins Work Phone: [facility] 11-24-2022 13:55-0400 Body temperature 96 [degF] Dr. Mei Cummins Work Phone: [facility] 11-24-2022 13:55-0400 Body weight 83.[address] Mei Cummins Work Phone: [facility] 10-13-2022 11:32-0400 Body height 175.8 cm Ab Calvillo MD Work Phone: [facility] 10-13-2022 11:32-0400 Body weight 83.01 kg Ab Calvillo MD Work Phone: [facility] 10-13-2022 11:32-0400 Heart rate 68 /min Ab Calvillo MD Work Phone: [facility] 10-13-2022 11:32-0400 Respiratory rate 16 /min Ab Calvillo MD Work Phone: [facility] 10-13-2022 11:32-0400 SaO2% (BldA) [Mass fraction] 95 % Ab Calvillo MD Work Phone: [facility] 10-13-2022 11:30-0400 Body height 175.8 cm Pulm Wstr Work Phone: [facility] 10-13-2022 11:30-0400 Body weight 83.01 kg Pulm Wstr Work Phone: [facility] 10-13-2022 11:30-0400 Heart rate 68 /min Pulm Wstr Work Phone: [facility] 10-13-2022 11:30-0400 Respiratory rate 16 /min Pulm Wstr Work Phone: [facility] 10-13-2022 11:30-0400 SaO2% (BldA) [Mass fraction] 95 % Pulm Wstr Work Phone: [facility] 09-29-2022 14:03-0400 Body height 180.3 cm Bela Manzano MD Work Phone: [facility] 09-29-2022 14:03-0400 Body weight 82.56 kg Bela Manzano MD Work Phone: [facility] 09-29-2022 14:03-0400 Diastolic blood pressure 76 mm[Hg] Bela Manzano MD Work Phone: [facility] 09-29-2022 14:03-0400 Heart rate 80 /min Bela Manzano MD Work Phone: [facility] 09-29-2022 14:03-0400 SaO2% (BldA) [Mass fraction] 99 % Bela Manzano MD Work Phone: [facility] 09-29-2022 14:03-0400 Systolic blood pressure 153 mm[Hg] Bela Manzano MD Work Phone: [facility] 08-07-2022 06:23-0400 Body mass index (BMI) [Ratio] 24.8 kg/m2 Dr. Mei Cummins Work Phone: [facility] 08-07-2022 06:23-0400 Body temperature 97.9 [degF] Dr. Mei Cummins Work Phone: [facility] 08-07-2022 06:23-0400 Body weight 80.[address] Mei Cummins Work Phone: [facility] 08-07-2022 06:23-0400 Diastolic blood pressure 65 mm[Hg] Dr. Mei Cummins Work Phone: [facility] 08-07-2022 06:23-0400 Heart rate 77 /min Dr. Mei Cummins Work Phone: [facility] 08-07-2022 06:23-0400 Inhaled oxygen flow rate 3 L/min Dr. Mei Cummins Work Phone: [facility] 08-07-2022 06:23-0400 Respiratory rate 22 /min Dr. Mei Cummins Work Phone: [facility] 08-07-2022 06:23-0400 SaO2% (BldA) [Mass fraction] 98 % Dr. Mei Cummins Work Phone: [facility] 08-07-2022 06:23-0400 Systolic blood pressure 124 mm[Hg] Dr. Mei Cummins Work Phone: [facility] 08-05-2022 11:35-0400 Diastolic blood pressure 64 mm[Hg] Tyrell Vigil DO Work Phone: [facility] 08-05-2022 11:35-0400 Heart rate 89 /min Tyrell Vigil DO Work Phone: [facility] 08-05-2022 11:35-0400 SaO2% (BldA) [Mass fraction] 99 % Tyrell Vigil DO Work Phone: [facility] 08-05-2022 11:35-0400 Systolic blood pressure 124 mm[Hg] Tyrell Vigil DO Work Phone: [facility] 07-29-2022 11:09-0400 Diastolic blood pressure 64 mm[Hg] Tyrell Vigil DO Work Phone: [facility] 07-29-2022 11:09-0400 Heart rate 76 /min Tyrell Vigil DO Work Phone: [facility] 07-29-2022 11:09-0400 SaO2% (BldA) [Mass fraction] 97 % Tyrell Vigil DO Work Phone: [facility] 07-29-2022 11:09-0400 Systolic blood pressure 126 mm[Hg] Tyrell Vigil DO Work Phone: [facility] 06-26-2022 10:58-0400 Body weight 80.2 kg Mei Cummins MD Work Phone: [facility] 06-26-2022 10:58-0400 Diastolic blood pressure 82 mm[Hg] Mei Cummins MD Work Phone: [facility] 06-26-2022 10:58-0400 Heart rate 80 /min Mei Cummins MD Work Phone: [facility] 06-26-2022 10:58-0400 Respiratory rate 24 /min Mei Cummins MD Work Phone: [facility] 06-26-2022 10:58-0400 Systolic blood pressure 134 mm[Hg] Mei Cummins MD Work Phone: [facility] 06-03-2022 10:59-0400 Diastolic blood pressure 72 mm[Hg] Tyrell Vigil DO Work Phone: [facility] 06-03-2022 10:59-0400 Heart rate 84 /min Tyrell Vigil DO Work Phone: [facility] 06-03-2022 10:59-0400 SaO2% (BldA) [Mass fraction] 99 % Tyrell Vigil DO Work Phone: [facility] 06-03-2022 10:59-0400 Systolic blood pressure 132 mm[Hg] Tyrell Vigil DO Work Phone: [facility] 05-20-2022 09:45-0400 Diastolic blood pressure 66 mm[Hg] Tyrell Vigil DO Work Phone: [facility] 05-20-2022 09:45-0400 Heart rate 91 /min Tyrell Vigil DO Work Phone: [facility] 05-20-2022 09:45-0400 SaO2% (BldA) [Mass fraction] 99 % Tyrell Vigil DO Work Phone: [facility] 05-20-2022 09:45-0400 Systolic blood pressure 130 mm[Hg] Tyrell Vigil DO Work Phone: [facility] 05-12-2022 11:41-0400 Body weight 79.38 kg Bela Manzano MD Work Phone: [facility] 05-12-2022 11:41-0400 Diastolic blood pressure 72 mm[Hg] Bela Manzano MD Work Phone: [facility] 05-12-2022 11:41-0400 Heart rate 95 /min Bela Manzano MD Work Phone: [facility] 05-12-2022 11:41-0400 SaO2% (BldA) [Mass fraction] 99 % Bela Manzano MD Work Phone: [facility] 05-12-2022 11:41-0400 Systolic blood pressure 148 mm[Hg] Bela Manzano MD Work Phone: [facility] 03-04-2022 13:30-0500 Diastolic blood pressure 64 mm[Hg] Tyrell Vigil DO Work Phone: [facility] 03-04-2022 13:30-0500 Heart rate 86 /min Tyrell Vigil DO Work Phone: [facility] 03-04-2022 13:30-0500 SaO2% (BldA) [Mass fraction] 95 % Tyrell Vigil DO Work Phone: [facility] 03-04-2022 13:30-0500 Systolic blood pressure 130 mm[Hg] Tyrell Vigil DO Work Phone: [facility] 02-05-2022 10:47-0500 Body height 180.[address] Mei Cummins Work Phone: [facility] 02-05-2022 10:47-0500 Body mass index (BMI) [Ratio] 24.4 kg/m2 Dr. Mei Cummins Work Phone: [facility] 02-05-2022 10:47-0500 Body temperature 97.8 [degF] Dr. Mei Cummins Work Phone: [facility] 02-05-2022 10:47-0500 Body weight 79.[address] Mei Cummins Work Phone: [facility] 02-05-2022 10:47-0500 Diastolic blood pressure 79 mm[Hg] Dr. Mei Cummins Work Phone: [facility] 02-05-2022 10:47-0500 Heart rate 94 /min Dr. Mei Cummins Work Phone: [facility] 02-05-2022 10:47-0500 Inhaled oxygen flow rate 3 L/min Dr. Mei Cummins Work Phone: [facility] 02-05-2022 10:47-0500 Respiratory rate 29 /min Dr. Mei Cummins Work Phone: [facility] 02-05-2022 10:47-0500 SaO2% (BldA) [Mass fraction] 95 % Dr. Mei Cummins Work Phone: [facility] 02-05-2022 10:47-0500 Systolic blood pressure 143 mm[Hg] Dr. Mei Cummins Work Phone: [facility] 01-25-2022 15:43-0500 Diastolic blood pressure 84 mm[Hg] [facility] 01-25-2022 15:43-0500 Heart rate 85 /min [facility] 01-25-2022 15:43-0500 Respiratory rate 16 /min [facility] 01-25-2022 15:43-0500 SaO2% (BldA) [Mass fraction] 100 % [facility] 01-25-2022 15:43-0500 Systolic blood pressure 138 mm[Hg] [facility] 01-25-2022 14:32-0500 Body temperature 98 [degF] [facility] 01-25-2022 13:20-0500 Body height 180.34 cm [facility] Work Phone: 01-25-2022 13:20-0500 Body mass index (BMI) [Ratio] 24.4 kg/m2 [facility] 01-25-2022 13:20-0500 Body weight 79.37 kg [facility] 01-25-2022 13:20-0500 Inhaled oxygen flow rate 3 L/min [facility] 01-21-2022 10:48-0500 Diastolic blood pressure 81 mm[Hg] Tyrell Vigil DO Work Phone: [facility] 01-21-2022 10:48-0500 Heart rate 110 /min Tyrell Vigil DO Work Phone: [facility] 01-21-2022 10:48-0500 SaO2% (BldA) [Mass fraction] 98 % Tyrell Vigil DO Work Phone: [facility] 01-21-2022 10:48-0500 Systolic blood pressure 145 mm[Hg] Tyrell Vigil DO Work Phone: [facility] 12-16-2021 14:31-0400 Body weight 82.1 kg Mei Cummins MD Work Phone: [facility] 12-16-2021 14:31-0400 Diastolic blood pressure 78 mm[Hg] Mei Cummins MD Work Phone: [facility] 12-16-2021 14:31-0400 Heart rate 80 /min Mei Cummins MD Work Phone: [facility] 12-16-2021 14:31-0400 Respiratory rate 20 /min Mei Cummins MD Work Phone: [facility] 12-16-2021 14:31-0400 Systolic blood pressure 136 mm[Hg] Mei Cummins MD Work Phone: [facility] 12-15-2021 13:50-0400 Heart rate 115 /min [facility] Work Phone: 12-15-2021 13:50-0400 Respiratory rate 25 /min [facility] Work Phone: 12-15-2021 13:40-0400 Diastolic blood pressure 87 mm[Hg] [facility] Work Phone: 12-15-2021 13:40-0400 Inhaled oxygen flow rate 3 L/min [facility] Work Phone: 12-15-2021 13:40-0400 SaO2% (BldA) [Mass fraction] 97 % [facility] Work Phone: 12-15-2021 13:40-0400 Systolic blood pressure 137 mm[Hg] [facility] Work Phone: 12-15-2021 12:08-0400 Body temperature 98.9 [degF] [facility] Work Phone: 12-15-2021 12:05-0400 Body height 180.34 cm [facility] Work Phone: 12-15-2021 12:05-0400 Body mass index (BMI) [Ratio] 25.2 kg/m2 [facility] Work Phone: 12-15-2021 12:05-0400 Body weight 82.1 kg [facility] Work Phone: 11-25-2021 13:16-0400 Body weight 80.74 kg Bela Manzano MD Work Phone: [facility] 11-25-2021 13:16-0400 Diastolic blood pressure 80 mm[Hg] Bela Manzano MD Work Phone: [facility] 11-25-2021 13:16-0400 Heart rate 104 /min Bela Manzano MD Work Phone: [facility] 11-25-2021 13:16-0400 SaO2% (BldA) [Mass fraction] 98 % Bela Manzano MD Work Phone: [facility] 11-25-2021 13:16-0400 Systolic blood pressure 120 mm[Hg] Bela Manzano MD Work Phone: [facility] 11-19-2021 11:40-0400 Body temperature 97.39 [degF] Salazar Masci DO Work Phone: [facility] 11-19-2021 11:40-0400 Body weight 83.01 kg Salazar Masci DO Work Phone: [facility] 11-19-2021 11:40-0400 Diastolic blood pressure 73 mm[Hg] Salazar Masci DO Work Phone: [facility] 11-19-2021 11:40-0400 Heart rate 82 /min Salazar Masci DO Work Phone: [facility] 11-19-2021 11:40-0400 SaO2% (BldA) [Mass fraction] 100 % Salazar Masci DO Work Phone: [facility] 11-19-2021 11:40-0400 Systolic blood pressure 126 mm[Hg] Salazar Masci DO Work Phone: [facility] 09-04-2021 14:44-0400 Body weight 82.46 kg Mei Cummins MD Work Phone: [facility] 09-04-2021 14:44-0400 Diastolic blood pressure 74 mm[Hg] Mei Cummins MD Work Phone: [facility] 09-04-2021 14:44-0400 Heart rate 80 /min Mei Cummins MD Work Phone: [facility] 09-04-2021 14:44-0400 Respiratory rate 20 /min Mei Cummins MD Work Phone: [facility] 09-04-2021 14:44-0400 Systolic blood pressure 128 mm[Hg] Mei Cummins MD Work Phone: [facility] 08-07-2021 10:44-0400 Body height 180.[address] Mei Cummins Work Phone: [facility] Work Phone: 08-07-2021 10:44-0400 Body mass index (BMI) [Ratio] 25.2 kg/m2 Dr. Mei Cummins Work Phone: [facility] Work Phone: 08-07-2021 10:44-0400 Body temperature 98.6 [degF] Dr. Mei Cummins Work Phone: [facility] Work Phone: 08-07-2021 10:44-0400 Body weight 82.[address] Mei Cummins Work Phone: [facility] Work Phone: 08-07-2021 10:44-0400 Diastolic blood pressure 74 mm[Hg] Dr. Mei Cummins Work Phone: [facility] Work Phone: 08-07-2021 10:44-0400 Heart rate 50 /min Dr. Mei Cummins Work Phone: [facility] Work Phone: 08-07-2021 10:44-0400 Inhaled oxygen flow rate 3 L/min Dr. Mei Cummins Work Phone: [facility] Work Phone: 08-07-2021 10:44-0400 Respiratory rate 22 /min Dr. Mei Cummins Work Phone: [facility] Work Phone: 08-07-2021 10:44-0400 SaO2% (BldA) [Mass fraction] 93 % Dr. Mei Cummins Work Phone: [facility] Work Phone: 08-07-2021 10:44-0400 Systolic blood pressure 148 mm[Hg] Dr. Mei Cummins Work Phone: [facility] Work Phone: 07-19-2021 10:32-0400 Body temperature 97.7 [degF] Salazar Itzeli DO Work Phone: [facility] 07-19-2021 10:32-0400 Body weight 82.78 kg Salazar Masci DO Work Phone: [facility] 07-19-2021 10:32-0400 Diastolic blood pressure 74 mm[Hg] Salazar Masci DO Work Phone: [facility] 07-19-2021 10:32-0400 Heart rate 91 /min Salazar Masci DO Work Phone: [facility] 07-19-2021 10:32-0400 SaO2% (BldA) [Mass fraction] 100 % Salazar Masci DO Work Phone: [facility] 07-19-2021 10:32-0400 Systolic blood pressure 125 mm[Hg] Salazar Masci DO Work Phone: [facility] 06-04-2021 15:41-0400 Body weight 82.1 kg Mei Cummins MD Work Phone: [facility] 06-04-2021 15:41-0400 Diastolic blood pressure 76 mm[Hg] Mei Cummins MD Work Phone: [facility] 06-04-2021 15:41-0400 Heart rate 52 /min Mei Cummins MD Work Phone: [facility] 06-04-2021 15:41-0400 Respiratory rate 28 /min Mei Cummins MD Work Phone: [facility] 06-04-2021 15:41-0400 Systolic blood pressure 138 mm[Hg] Mei Cummins MD Work Phone: [facility] 04-07-2020 13:08-0500 Pulse Oximetry 93 % [facility] [place] 04-07-2020 10:55-0500 Body Temperature 97.9 [degF] [facility] 04-07-2020 10:55-0500 BP Diastolic 64 mm[Hg] [facility] [place] 04-07-2020 10:55-0500 BP Systolic 116 mm[Hg] [facility] [place] 04-07-2020 10:55-0500 Pulse (Heart Rate) 92 /min [facility], [place] 04-07-2020 10:55-0500 Respiratory Rate 18 /min [facility] [place] 04-07-2020 02:59-0500 BMI (Body Mass Index) 25.01 kg/m2 [facility] [place] 04-07-2020 02:59-0500 Body weight 81.33 kg [facility] [place] 04-05-2020 18:57-0500 Height 180.3 cm [facility] [place] 03-03-2020 12:58-0500 Body Temperature 98.4 [degF] [facility] [place] 03-03-2020 12:58-0500 BP Diastolic 65 mm[Hg] [facility] [place] , [place] 03-03-2020 12:58-0500 BP Systolic 114 mm[Hg] [facility] [place] [facility] [place] 03-03-2020 12:58-0500 Pulse (Heart Rate) 84 /min [facility] [place] 03-03-2020 12:58-0500 Pulse Oximetry 93 % [facility] [place] 03-03-2020 12:58-0500 Respiratory Rate 18 /min [facility] 02-21-2020 08:25-0500 Height 182.9 cm Oliverio Herr[facility] [place] 02-20-2020 10:31-0500 BMI (Body Mass Index) 26.45 kg/m2 [facility] [place] 02-20-2020 10:31-0500 Body weight 88.45 kg Oliverio Herr[facility] [place] 02-16-2020 11:38-0500 BMI (Body Mass Index) 26.85 kg/m2 [facility] [place] 02-16-2020 11:38-0500 Body Temperature 98.4 [degF] [facility] [place] 02-16-2020 11:38-0500 Body weight 89.81 kg Oliverio Herr[facility] [place] 02-16-2020 11:38-0500 BP Diastolic 74 mm[Hg] Oliverio [facility] [place] 02-16-2020 11:38-0500 BP Systolic 132 mm[Hg] [facility] [place] 02-16-2020 11:38-0500 Height 182.9 cm Oliverio Herr[facility] [place] 02-16-2020 11:38-0500 Pulse (Heart Rate) 82 /min [facility] [place] 02-16-2020 11:38-0500 Pulse Oximetry 97 % Oliver[facility] [place] 02-16-2020 11:38-0500 Respiratory Rate 16 /min [facility] [place] [facility] [place] Encounters Encounter Date Encounter Type Care Provider Facility Start: 10-05-2024 ambulatory Juan Carlos Cortes ty:[facility] Start: 09-29-2024 End: 09-29-2024 Patient encounter procedure Sosa HOPE [facility] Work Phone: Start: 09-29-2024 End: 09-29-2024 Sosa [facility]OPE [facility] Work Phone: Start: 09-29-2024 End: 09-29-[address] Mei Cummins MD Work Phone: -[facility] Start: 09-28-2024 End: 09-29-[address] Mei Cummins MD Work Phone: [facility] Start: 09-28-[address] Yanna Mazariegos DP [facility] Work Phone: Start: 09-28-2024 End: 09-29-2024 Dr. Rasta Mazariegos DPJustus [facility] Work Phone: Start: 09-17-2024 End: 09-17-2024 Dr. Mei Cummins MD Work Phone: -Emergency Department Work Phone: Start: 09-17-2024 End: 09-17-2024 Emergency department patient visit Dr. Mei Cummins MD Work Phone: -Emergency Department Start: 09-16-2024 End: 09-19-2024 Telephone encounter Salazar Meraz DO Work Phone: Hematology/Oncology Start: 09-14-2024 Dr. Rasta moses DP [facility] Work Phone: Start: 09-09-2024 End: 09-09-2024 ambulatory [facility] Facility: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 Joel SOTO [facility] Start: 09-07-2024 Dr. Misha Houser MD [facility] Start: 08-31-2024 End: 08-31-2024 Office outpatient visit 15 minutes Kailash Cordova APRN.MEDICAL DEVICE ASSEMBLER Work Phone: Pulmonary Medicine Comment on above: 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) (Primary Dx); Chronic hypoxemic respiratory failure (HCC); Bronchiectasis without complication (HCC); History of cancer of lower lobe bronchus or lung; Iron 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 loss Start: 08-31-2024 End: 08-31-2024 ambulatory KAILASH CORDOVA Facility:[facility] Start: 08-24-2024 End: 08-29-[address] Mei Cummins MD Work Phone: -[facility] Start: 08-24-2024 End: 08-29-[address] Rasta Mazariegos DPJustus [facility] Work Phone: Start: 08-24-2024 End: 08-29-2024 Dr. Rasta Mazariegos DPM -[facility] Work Phone: Start: 08-18-2024 End: 08-18-2024 ambulatory MEI CUMMINS Facility:[facility] Start: 08-07-2024 End: 08-08-2024 Refill Kailash Cordova APRN.MEDICAL DEVICE ASSEMBLER Work Phone: Pulmonary Medicine Comment on above: Refill Request Start: 08-01-2024 End: 08-01-2024 Patient encounter procedure Bela Manzano MD Work Phone: Cardiology Comment on above: Coronary artery dise ase involving [place] coronary artery of [place] heart without angina pectoris (Primary Dx); Essential hypertension; Hyperlipidemia, mixed; PAD (peripheral artery disease); Abdominal aortic aneurysm (AAA) without rupture, unspecified part Start: 08-01-2024 End: 08-01-2024 ambulatory BELA MANZANO Facility:[facility] Start: 07-27-2024 End: 07-30-[address] Mei Cummins MD Work Phone: [facility] Work Phone: Start: 07-27-2024 End: 07-30-[address] Rasta Mazariegos DPM [facility] Work Phone: Start: 07-27-2024 End: 07-30-2024 Dr. Rasta Mazariegos DPM [facility] Work Phone: Start: 07-21-2024 ambulatory VASHTI OTOOLE Facilit y:[facility] Start: 07-18-2024 End: 07-18-2024 Orders Only Salazar Merino Itzelhawa ARREOLA Work Phone: Hematology/Oncology Comment on above: Iron deficiency anem ia due to chronic blood loss (Primary Dx) Start: 07-15-2024 End: 07-15-2024 Telephone encounter Salazar Meraz DO Work Phone: Radiation Oncology Comment on above: Appointment Start: 07-13-2024 End: 07-18-2024 ambulatory Salazar Angelique Lizzy ARREOLA Work Phone: Hematology/Oncology Comment on above: Eliquis Question Start: 07-13-2024 Dr. Rasta moses DPM [facility] Work Phone: Start: 07-06-2024 Dr. Rasta moses DPM [facility] Work Phone: Start: 07-01-2024 End: 07-01-2024 ambulatory Treatment Rm 14 Joshua [facility] Work Phone: Hematology/Oncology Comment on above: Iron malabsorption ( HCC) (Primary Dx); Iron 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 loss; Gastrointestinal hemorrhage associated with gastric ulcer Start: 07-01-2024 End: 07-01-2024 Office outpatient visit 25 minutes Mei Cummins MD Work Phone: Family Medicine [place] Comment on above: Anxiety (Primary Dx) ; Depression, unspecified depression type; Essential hypertension; Lower leg edema; Elevated glucose; Hyperlipidemia, mixed; Coronary artery 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 [place] heart without angina pectoris; S/P CABG x [...] Start: 07-01-2024 End: 07-01-2024 ambulatory MEI CUMMINS Facility:[facility] Start: 06-30-2024 End: 06-30-2024 Patient encounter procedure Sosa HOPE [facility] Work Phone: Start: 06-30-2024 End: 06-30-2024 Ssoa HOPE [facility] Work Phone: Start: 06-30-2024 End: 06-30-[address] Mei Cummins MD Work Phone: [facility] Work Phone: Start: 06-29-2024 End: 06-30-2024 ambulatory Treatment [address] [facility] Work Phone: Hematology/Oncology Comment on above: Iron malabsorption ( HCC) (Primary Dx); Iron 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 loss; Gastrointestinal hemorrhage associated with gastric ulcer Start: 06-27-2024 End: 06-27-2024 ambulatory Treatment [address] [facility] Work Phone: Hematology/Oncology Comment on above: Iron malabsorption ( HCC) (Primary Dx); Iron 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 loss; Gastrointestinal hemorrhage associated with gastric ulcer Start: 06-26-2024 End: 06-28-2024 ambulatory Kailash Cordova OIL DELIVERER.MEDICAL DEVICE ASSEMBLER Work Phone: Pulmonary Medicine Comment on above: Nebulizer Medication Start: 06-24-2024 End: 06-24-2024 ambulatory KAILASH CORDOVA Facility:[facility] Start: 06-23-2024 End: 06-23-2024 ambulatory SALAZAR MERAZ Facility:[facility] Start: 06-22-2024 End: 06-22-2024 Telephone encounter Shala DRISCOLL Hematology/Oncology Comment on above: Social Work Services ; 1st Time Treatment Report Start: 06-22-2024 End: 06-29-2024 ambulatory Juan Carlos Viveros Facility:[facility] Start: 06-22-2024 End: 06-29-[address] Rasta Mazariegos DP [facility] Work Phone: Start: 06-22-2024 End: 06-29-2024 Dr. Rasta Mazariegos DPM -Wound [facility] Work Phone: Start: 06-22-2024 End: 06-22-2024 ambulatory TWILA WESTON Facility:[facility] Start: 06-21-2024 End: 06-21-2024 ambulatory Treatment Rm 15 Joshua [facility] Work Phone: Hematology/Oncology Comment on above: Iron deficiency anem ia due to chronic blood loss (Primary Dx); Iron malabsorption (HCC); Gastrointestinal hemorrhage associated with gastric ulcer Start: 06-15-2024 Dr. Rasta moses DP [facility] Work Phone: Start: 06-13-2024 End: 06-13-2024 Patient encounter procedure Garcia Moreno DO -[facility] Work Phone: Start: 06-13-2024 End: 06-13-2024 Garciavitaly Moreno DO -[facility] Work Phone: Start: 06-13-2024 End: 06-13-[address] Tristan Salter DO Work Phone: [facility] Work Phone: Start: 06-13-2024 End: 06-13-2024 ambulatory Teresa العراقيing Facility:[facility] Start: 06-10-2024 End: 06-10-[address] Tristan Salter DO Work Phone: [facility] Work Phone: Start: 06-10-2024 End: 06-10-2024 Patient encounter procedure Sosa HOPE -Laboratory Specimen Work Phone: Start: 06-10-2024 End: 06-10-2024 Sosa HOPE -Laboratory, Specime n Work Phone: Start: 06-09-2024 End: 06-10-2024 ambulatory Rosalie Martinez PA-C Work Phone: Pulmonary Medicine Comment on above: Prednisone question Start: 06-09-2024 End: 06-10-2024 Subsequent hospital visit by physician Mei Cmumins MD Work Phone: [facility] Comment on above: Recent Hospital visi t Start: 06-08-2024 End: 06-08-2024 Patient encounter procedure Sosa [facility] Work Phone: Start: 06-08-2024 End: 06-08-2024 Sosa [facility] Work Phone: Start: 06-08-2024 End: 06-09-2024 Refill Mei Cummins MD Work Phone: [facility] Comment on above: Refill Request Start: 06-08-2024 Dr. Rasta moses [facility] -[facility] Work Phone: Start: 06-08-2024 End: 06-08-2024 ambulatory Sosa Silva Facility:[facility] Start: 06-07-2024 End: 06-07-2024 Telephone encounter Mei Cummins MD Work Phone: [facility] Comment on above: Home Health Point of Care Results Start: 06-05-2024 Non-patient / Non-visit Dr. Chavez [facility] Work Phone: Start: 06-05-2024 Dr. Jacob Suazo [facility] Work Phone: Start: 06-04-2024 Non-patient / Non-visit Garcia Mendez nd [facility] Start: 06-04-2024 Garcia Moreno DO [facility] Start: 06-04-2024 Non-patient / Non-visit Dr. Chavez [facility] Work Phone: Start: 06-04-2024 Dr. Jacob Suazo DO [facility] Work Phone: Start: 06-03-2024 ambulatory Elizabeth Santamaria Facility :[facility] Start: 06-03-2024 End: 06-05-2024 Evaluation and management of inpatient Dr. Mei Cummins MD Work Phone: [facility] Work Phone: Start: 06-03-2024 End: 06-05-2024 Dr. Elizabeth Santamaria MD -Medical Surgical 3 Work Phone: Start: 06-02-2024 End: 06-02-2024 Telephone encounter Mei Cummins MD Work Phone: [facility] Comment on above: Senior Care Plan of Care Start: 06-01-2024 End: 06-01-2024 ambulatory KAILASH CORDOVA Facility: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 Rasta moses DPM -[facility] Work Phone: Start: 05-26-2024 End: 05-27-2024 Telephone encounter Mei Cummins MD Work Phone: [facility] Comment on above: Home Health Update Start: 05-24-2024 Non-patient / Non-visit Dr. Malu Sagastume [facility] Work Phone: Start: 05-24-2024 Dr. Malu Rao [facility] Work Phone: Start: 05-23-2024 Non-patient / Non-visit Dr. Migue Cortes DO [facility] Work Phone: Start: 05-23-2024 Dr. Mei knox [facility] Work Phone: Start: 05-22-2024 ambulatory Jacob Johnson ility:[facility] Start: 05-22-2024 End: 05-24-2024 Evaluation and management of inpatient Dr. Jacob Suazo DO -Progressive Care Unit Work Phone: Start: 05-22-2024 End: 05-24-2024 Dr. Malu Steen DO -Progressive Care Un it Work Phone: Start: 05-11-2024 ambulatory Rosa lama [employer] Facility:[facility] Start: 05-11-2024 Non-patient / Non-visit Rosaalee Garcia [employer]-C -[facility] Start: 05-11-2024 Rosaalee lama [employer]-C -[facility] Start: 05-11-2024 End: 05-30-[address] Rasta Mazariegso DP -[facility] Work Phone: Start: 05-11-[address] Yanna Mazariegos DP -[facility] Work Phone: Start: 05-11-2024 End: 05-30-2024 Dr. Rasta Mazariegos DP -[facility] Work Phone: Start: 05-11-2024 End: 05-30-[address] Mei Cummins MD Work Phone: [facility] Work Phone: Start: 05-05-2024 End: 05-05-2024 Telephone encounter Mei Cummins MD Work Phone: [facility] Comment on above: Patient Request Start: 05-04-2024 End: 05-04-2024 ambulatory Rosalie Martinez PA-C Work Phone: Pulmonary Medicine Comment on above: Rogflumilast Medicat ion Start: 04-27-2024 Non-patient / Non-visit Rosa Garcia [employer]-C -[facility] Start: 04-27-2024 End: 04-29-2024 ambulatory Juan Carlos Viveros Facility:[facility] Start: 04-27-2024 End: 04-29-2024 Discharged Recurring Rosa Garcia [employer]PL[employer]-C -[facility] Work Phone: Start: 04-27-2024 End: 04-29-2024 Rosa Garcia [employer]PL[employer] E[employer]-C -[facility] Work Phone: Start: 04-26-2024 End: 04-26-2024 ambulatory BELA MANZANO Facility:[facility] Start: 04-20-2024 End: 04-20-2024 Telephone encounter Mei Cummins MD Work Phone: [facility] Comment on above: Patient Update Start: 04-14-2024 End: 04-14-2024 ambulatory BETITO MAURO Facility:[facility] Start: 04-14-2024 End: 04-14-2024 Patient encounter procedure Betito Mauro MD Work Phone: Vascular Surgery Comment on above: PAD (peripheral luzmaria ry disease) (HCC) (Primary Dx) Start: 04-13-2024 ambulatory Rosa lama NP Facility:[facility] Start: 04-13-2024 Non-patient / Non-visit Rosa Garcia [employer]-C -[facility] Start: 04-13-2024 Rosa lama [employer]-C -[facility] Start: 04-12-2024 End: 04-14-2024 Refill Salazar Meraz DO Work Phone: Hematology/Oncology Comment on above: Refill Request Start: 04-04-2024 End: 04-07-2024 Telephone encounter Mei Cummins MD Work Phone: [facility] Comment on above: Forms (AEP) Start: 03-31-2024 End: 03-31-2024 Telephone encounter Mei Cummins MD Work Phone: [facility] Comment on above: Results Start: 03-30-2024 ambulatory Juan Carlos Felice Facili ty:[facility] Start: 03-30-2024 Non-patient / Non-visit Rosa Garcia [employer]PL[employer]-C -[facility] Start: 03-30-2024 Rosaalee lama [employer]PL[employer] ELECTR[employer]-C -[facility] Start: 03-30-2024 End: 04-01-2024 Discharged Recurring Rosa Lola Jose [employer]-C -[facility] Work Phone: Start: 03-30-2024 End: 04-01-2024 Rosa Garcia [employer]PL[employer] ELECTRIC[employer]-C -Wound [facility] Work Phone: Start: 03-30-2024 End: 04-01-2024 ambulatory Juan Carlos Testjose Facility:[facility] Start: 03-30-2024 End: 03-30-[address] Mei Cummins MD -Laboratory, Specimen Work Phone: Start: 03-30-2024 End: 03-30-2024 Dr. Mei Cummins MD -Laboratory, Specimen Work Phone: Start: 03-30-2024 End: 03-30-2024 ambulatory Mei Cummins Facility:[facility] Start: 03-23-2024 End: 03-23-2024 ambulatory ROSALIE MARTINEZ Facility:[facility] Start: 03-23-2024 End: 03-23-2024 Patient encounter procedure [...] Mei Cummins MD Work Phone: Family Medicine [place] Comment on above: Patient Update Start: 03-21-2024 End: 03-21-2024 ambulatory SALAZAR MERAZ Facility:[facility] Start: 03-21-2024 End: 03-21-2024 Office outpatient visit 25 minutes Salazar Meraz DO Work Phone: Hematology/Oncology Comment on above: Squamous carcinoma o f lung, left (HCC) (Primary Dx); Chronic pulmonary embolism without acute cor pulmonale, unspecified pulmonary embolism type (HCC); History of prostate cancer Start: 03-21-2024 End: 03-23-2024 E-mail encounter from caregiver Juan Carlos Viveros Work Phone: Podiatry Start: 03-21-2024 End: 03-23-2024 Patient encounter procedure Juan Carlos Michellejose Work Phone: Podiatry Comment on above: wound center referra l Start: 03-16-2024 End: 03-17-2024 Telephone encounter Bela Manzano MD Work Phone: Cardiology Comment on above: Results Start: 03-15-2024 End: 03-15-2024 ambulatory JUAN CARLOS VIVEROS Facility:[facility] Start: 03-15-2024 End: 03-15-2024 Patient encounter procedure Juan Carlos Viveros Work Phone: Podiatry Comment on above: Skin ulcer, limited to breakdown of skin (HCC) (Primary Dx); Peripheral arterial disease (HCC) Start: 03-14-2024 End: 03-14-2024 ambulatory MEI CUMMINS Facility:[facility] Start: 03-14-2024 End: 03-14-2024 Subsequent hospital visit by physician Katt [facility] ([facility]) Work Phone: Cat Scan Comment [...] Start: 03-10-2024 End: 03-10-2024 ambulatory BETITO MAURO Facility:[facility] Start: 03-03-2024 End: 03-03-2024 ambulatory JUAN CARLOS VIVEROS Facility:[facility] Start: 03-03-2024 End: 03-03-2024 Patient encounter procedure Juan Carlos Viveros Work Phone: Podiatry Comment on above: Skin ulcer, limited to breakdown of skin (HCC) (Primary Dx); Peripheral arterial disease (HCC); Venous insufficiency Start: 02-29-2024 End: 02-29-2024 Telephone encounter Mei Cummins MD Work Phone: [facility] Comment on above: resume skilled nursi ng Start: 02-28-2024 End: 02-29-2024 Refill Mei Cummins MD Work Phone: [facility] Comment on above: Refill Request Start: 02-22-2024 Non-patient / Non-visit Dr. Migue Cortes [facility] Work Phone: Start: 02-22-2024 Dr. Mei knox [facility] Work Phone: Start: 02-21-2024 Non-patient / Non-visit Dr. Chavez [facility] Work Phone: Start: 02-21-2024 Dr. Jacob Suazo [facility] Work Phone: Start: 02-20-2024 Non-patient / Non-visit Dr. Chavez [facility] Work Phone: Start: 02-20-2024 Dr. Jacob Suazo [facility] Work Phone: Start: 02-19-2024 ambulatory [facility] Facility :[facility] Start: 02-19-2024 End: 02-22-2024 Evaluation and management of inpatient Dr. Mei Cortes DO [facility] 3 Work Phone: Start: 02-19-2024 End: 02-22-2024 Dr. Mei Cortes DO Medical [facility] 3 Work Phone: Start: 02-18-2024 End: 02-18-2024 Telephone encounter Mei Cummins MD Work Phone: [facility] Comment on above: prison plan of care Start: 02-17-2024 End: 02-17-2024 ambulatory TYRELL Bruno GORDONLE Facility:[facility] Start: 02-16-2024 End: 02-16-2024 ambulatory JUAN CARLOS VIVEROS Facility:[facility] Start: 02-16-2024 End: 02-16-2024 Patient encounter procedure Juan Carlos Viveros Work Phone: Podiatry Comment on above: Skin ulcer, limited to breakdown of skin (HCC) (Primary Dx); Peripheral arterial disease (HCC); Venous insufficiency Start: 02-12-2024 End: 02-12-2024 Refill Jamshid Brown APRN.CNP Work Phone: [facility] Comment on above: Refill Request Start: 02-11-2024 End: 02-11-2024 Patient encounter procedure [facility] Work Phone: Start: 02-11-2024 End: 02-11-2024 [facility] Work Phone: Start: 02-11-2024 End: 02-11-2024 ambulatory Mei Cummins Facility:[facility] Start: 02-08-2024 End: 02-08-2024 ambulatory Ab Calvillo MD Work Phone: Pulmonary Medicine Comment on above: Prednisone Start: 02-05-2024 End: 02-05-2024 ambulatory BETITO MAURO Facility:[facility] Start: 02-05-2024 End: 02-05-2024 Patient encounter procedure Betito Mauro MD Work Phone: Vascular Surgery Comment on above: Peripheral arterial disease (HCC) (Primary Dx) Start: 02-04-2024 End: 02-04-2024 ambulatory JUAN CARLOS MICHELLEJOSE Facility:[facility] Start: 02-03-2024 End: 02-03-2024 Subsequent hospital visit by physician [facility] Radiology Comment on above: Peripheral vascular disease (HCC) [I73.9] Start: 02-01-2024 End: 02-01-2024 ambulatory SHARYN SKY Facility:[facility] Start: 01-29-2024 End: 01-29-2024 ambulatory Tiffanie Rushing RN [facility] Radiology Comment on above: Upcoming CAT Scan wi th blood work needed Peripheral vascular disease, unspecified (HCC) (Primary Dx) Start: 01-29-2024 End: 01-29-2024 E-mail encounter from caregiver Tiffanie Rushing RN [facility] Radiology Start: 01-23-2024 End: 02-16-2024 Refill Rosalie Martinez PA-C Work Phone: Pulmonary Medicine Comment on above: Refill Request Start: 01-21-2024 End: 01-21-2024 ambulatory JUAN CARLOSKARELY MICHELLEJOSE Facility:[facility] Start: 01-21-2024 End: 01-21-2024 Patient encounter procedure Juan Carlos Viveros Work Phone: Podiatry Comment on above: Skin ulcer, limited to breakdown of skin (HCC) (Primary Dx); Peripheral arterial disease (HCC); Venous insufficiency Start: 01-20-2024 End: 01-21-2024 Telephone encounter Mei Cummins MD Work Phone: [facility] Comment on above: Home Health orders Start: 01-19-2024 End: 01-19-2024 ambulatory KAILASH CORDOVA Facility:[facility] Start: 01-19-2024 End: 01-19-2024 Office outpatient visit 40 minutes Kailash Cordova OIL DELIVERER.MEDICAL DEVICE ASSEMBLER Work Phone: Pulmonary Medicine Comment on above: Pneumonia of left lo wer lobe due to infectious organism (Primary Dx); Bronchiectasis without complication (HCC); Chronic hypoxemic respiratory failure (HCC) Start: 01-12-2024 End: 01-12-2024 ambulatory KAILASH CORDOVA Facility:[facility] Start: 01-12-2024 End: 01-12-2024 Subsequent hospital visit by physician Katt [facility] (I-Stat) Work Phone: Cat Scan Comment on above: Pneumonia of left gail ng due to infectious organism, unspecified part of lung [J18.9] Start: 01-08-2024 End: 01-08-2024 Telephone encounter Mei Cummins MD Work Phone: [facility] Comment on above: Orders Start: 01-07-2024 End: 01-07-2024 Emergency department patient visit Ruben Zuniga Facility:[facility] Start: 01-05-2024 End: 01-05-2024 Telephone encounter Tyrell Vigil DO Work Phone: Vascular Surgery Comment on above: Appointment Start: 01-05-2024 End: 01-05-2024 Subsequent hospital visit by physician Xr [facility] Work Phone: Radiology Comment on above: Skin ulcer, limited to breakdown of skin (HCC) [L98.491] Start: 01-05-2024 End: 01-05-2024 ambulatory JUAN CARLOS FELICE Facility:[facility] Start: 01-05-2024 End: 01-05-2024 Patient encounter procedure Juan Carlos Viveros Work Phone: Podiatry Comment on above: Skin ulcer, limited to breakdown of skin (HCC) (Primary Dx); Peripheral arterial disease (HCC); Venous insufficiency Start: 12-24-2023 End: 12-24-2023 ambulatory JUAN CARLOS TESTFELIX Facility:[facility] Start: 12-24-2023 End: 12-24-2023 Patient encounter procedure Juan Carlos Barberfelix Work Phone: Podiatry Comment on above: Skin ulcer, limited to breakdown of skin (HCC) (Primary Dx); Peripheral arterial disease (HCC); Venous insufficiency Start: 12-23-2023 End: 12-23-2023 Patient encounter procedure Twila Weston APRN.CNP Work Phone: [facility] Comment on above: Chronic obstructive pulmonary disease, unspecified COPD type (HCC) (Primary Dx); Essential hypertension; Coronary artery 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 bishop [place] heart without angina pectoris; Hyperlipidemia, mixed; Moderate recurrent major depression (HCC); Anxiety; Prostate cancer (HCC); Elevated glucose; Encounter for immunization Start: 12-23-2023 End: 12-23-2023 ambulatory TWILA WESTON Facility:[facility] Start: 12-22-2023 End: 12-22-2023 Telephone encounter Mei Cummins MD Work Phone: [facility] [place] Comment on above: Updated Skilled Nurs ing Plan of Care Start: 12-21-2023 End: 12-21-2023 ambulatory BELA MANZANO Facility:[facility] Start: 12-21-2023 End: 12-21-2023 Patient encounter procedure Bela Manzano MD Work Phone: Cardiology Comment on above: Coronary artery dise ase involving bishop [place]iute coronary artery of [place] heart without angina pectoris (Primary Dx); Essential hypertension; Hyperlipidemia, mixed; PAD (peripheral artery disease) (HCC) Start: 12-15-2023 End: 12-15-2023 Telephone encounter Kailash Cordova OIL DELIVERER.MEDICAL DEVICE ASSEMBLER Work Phone: Pulmonary Medicine Comment on above: Patient Update Start: 12-11-2023 End: 12-14-2023 Orders Only Kailash Cordova OIL DELIVERER.MEDICAL DEVICE ASSEMBLER Work Phone: Pulmonary Medicine Comment on above: Patient Question (el evated heart rate) Start: 12-08-2023 End: 12-08-2023 ambulatory KAILASH CORDOVA Facility:[facility] Start: 12-08-2023 End: 12-08-2023 ambulatory KAILASH CORDOVA Facility: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 Start: 12-07-2023 End: 12-07-2023 Patient encounter procedure [...] hypoxemic respiratory failure (HCC) Oxygen Concentrator from [facility] Start: 11-25-2023 End: 11-26-2023 Telephone encounter Tyrell Vigil DO Work Phone: Vascular Surgery Comment on above: Appointment (Vascula r ) Orders for home shelter Health Nursing Order Request Start: 11-23-2023 End: 11-23-2023 Subsequent hospital visit by physician Xr [facility] Work Phone: Radiology Comment on above: Skin ulcer, limited to breakdown of skin (HCC) [L98.491] Start: 11-23-2023 End: 11-23-2023 ambulatory JUAN CARLOS VIVEROS Facility:[facility] Start: 11-23-2023 End: 11-23-2023 Patient encounter procedure Juan Carlos Viveros Work Phone: Podiatry Comment on above: Skin ulcer, limited to breakdown of skin (HCC) (Primary Dx); Peripheral arterial disease (HCC) Start: 11-22-2023 End: 11-23-2023 Telephone encounter Salazar Meraz DO Work Phone: Hematology/Oncology Comment on above: Results Start: 11-19-2023 End: 11-19-2023 ambulatory MEI CUMMINS Facility:[facility] Start: 11-19-2023 End: 11-19-2023 Patient encounter procedure Andrés Morocho APRN.MEDICAL DEVICE ASSEMBLER Work Phone: [facility] Comment on above: Cellulitis of left a nkle (Primary Dx) Start: 11-16-2023 End: 11-16-2023 Telephone encounter Mei Cummins MD Work Phone: [facility] [place] Comment on above: OT plan of care Start: 11-13-2023 End: 11-13-2023 Orders Only Salazar Meraz DO Work Phone: Hematology/Oncology Comment on above: Squamous carcinoma o f lung, left (HCC) (Primary Dx) Squamous carcinoma o f lung, 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.92] Start: 11-11-2023 End: 11-11-2023 ambulatory [facility] Facility:[facility] Start: 11-11-2023 End: 11-11-2023 ambulatory [facility] Facility:[facility] Start: 11-04-2023 End: 11-04-2023 Telephone encounter Mei Cummins MD Work Phone: Family [facility] Start: 11-03-2023 End: 11-03-2023 Telephone encounter Mei Cummins MD Work Phone: Family [facility] Comment on above: POC Start: 10-29-2023 End: 10-29-2023 ambulatory MEI CUMMINS Facility:[facility] Start: 10-29-2023 End: 10-29-2023 Patient encounter procedure Mei Cummins MD Work Phone: Family [facility] [place] Comment on above: Chronic obstructive pulmonary disease, unspecified COPD type (HCC) (Primary Dx); Essential hypertension; Anxiety; Coronary artery 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 [place] heart without angina pectoris; Squamous carcinoma of lung, left (HCC); Acute and chronic respiratory failure with hypoxia (HCC); Moderate recurrent major depression (HCC); Hospital discharge follow-up Start: 10-29-2023 End: 10-29-2023 Telephone encounter Mei Cummins MD Work Phone: Family [facility] [place] Comment on above: Orders Start: 10-28-2023 End: 10-29-2023 Refill Bela Manzano MD Work Phone: Pulmonary Medicine Comment on above: Refill Request OT Plan of Care Start: 10-27-2023 End: 10-28-2023 Telephone encounter Mei Cummins MD Work Phone: Family [facility] [place] Comment on above: Patient Question Start: 10-26-2023 End: 10-26-2023 Telephone encounter Mei Cummins MD Work Phone: Family [facility] [place] Comment on above: [facility] question Medication Question SW Visit Start: 10-23-2023 End: 10-23-2023 Telephone encounter Mei Cummins MD Work Phone: [facility] Comment on above: [facility] HH-Order Request Start: 10-17-2023 End: 10-25-2023 Evaluation and management of inpatient Josué Hunt Facility:[facility] Start: 10-16-2023 Refill Salazar Figueroa Work Phone: Hematology/Oncology Comment on above: Refill Request Start: 10-14-2023 ambulatory Etta Edmondson [facility] Start: 10-07-2023 ambulatory Elizabeth Santamaria Facility :[facility] Start: 10-06-2023 ambulatory Mei Cummins Facilit y:[facility] Start: 10-05-2023 End: 10-17-2023 Evaluation and management of inpatient Salazar Owens Facility:[facility] Start: 10-05-2023 ambulatory Garcia Moreno Facility :[facility] Start: 10-05-2023 Telephone encounter Mei jarquin MD Work Phone: [facility] Comment on above: Patient Update Start: 10-01-2023 Patient Outreach Mei gunter MD Work Phone: [facility] Comment on above: Transition Of Care ( [facility] d/c) Patient Update (Lab work) Patient Update Start: 09-25-2023 Telephone encounter Salazar goodrich DO Work Phone: Hematology/Oncology Comment on above: Cough Cough; Chest Congest ion Start: 09-21-2023 End: 09-21-2023 Patient encounter procedure Mei Cummins MD Work Phone: [facility] Comment on above: Anxiety (Primary Dx) ; Moderate recurrent major depression (HCC); Essential hypertension; Elevated glucose; Hyperlipidemia, mixed; Coronary artery 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 [place] heart without angina pectoris; PAD (peripheral artery disease) (HCC); Chronic obstructive pulmonary disease, unspecified COPD type (HCC) Start: 09-20-2023 ambulatory Rosalie Mitchell RN NURSE MACHINE ETCHER Comment on above: Medication Question Start: 09-19-2023 Refill Bela ruiz MD Work Phone: Cardiology Comment on above: Refill Request Start: 09-16-2023 End: 09-16-2023 Patient encounter procedure [...] Mei gee MD Work Phone: [facility] [place] Comment on above: Refill Request Start: 08-18-2023 End: 08-18-2023 Patient encounter procedure Tyrell Vigil DO Work Phone: Vascular Surgery Comment on above: Peripheral arterial disease (HCC) (Primary Dx); Abdominal aortic ectasia (HCC) Start: 08-10-2023 Telephone encounter Salazar Angelique Alva joleen DO Work Phone: Hematology/Oncology Comment on above: Results Start: 08-06-2023 Telephone encounter Salazar Angelique Nida goodrich DO Work Phone: Hematology/Oncology Comment on above: Opened In Error Start: 07-30-2023 End: 07-30-2023 Subsequent hospital visit by physician Katt [facility] ([facility]) Work Phone: Cat Scan Comment on above: Squamous carcinoma o f lung, 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.92] Start: 07-28-2023 Telephone encounter Salazar goodrich DO Work Phone: Hematology/Oncology Comment on above: Orders Start: 07-19-2023 Get Medical Advice Ondina Calvillo MD Work Phone: Pulmonary Medicine Comment on above: Prednisone Refill Start: 06-22-2023 End: 06-22-2023 Patient encounter procedure Mei Cummins MD Work Phone: [facility] Comment on above: Anxiety (Primary Dx) ; Moderate recurrent major depression (HCC); Hyperlipidemia, mixed; Essential hypertension; Coronary artery 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 [place] heart without angina pectoris; PAD (peripheral artery disease) (HCC); Chronic obstructive pulmonary disease with acute exacerbation (HCC); Squamous carcinoma of lung, left (HCC); Prostate cancer (HCC) Start: 06-19-2023 Telephone encounter Salazar goodrich DO Work Phone: Hematology/Oncology Comment on above: Results Start: 06-17-2023 End: 06-17-2023 ambulatory ADI CORTEZ Facility:[facility] Start: 06-12-2023 Telephone encounter Salazar goodrich DO Work Phone: Hematology/Oncology Comment on above: Appointment Squamous cell carcin casimiro of left lung (HCC) (Primary Dx) Radiology Pre Proced ure Instructions (LEFT lung biopsy) Start: 06-09-2023 End: 06-09-[address] Mei Cummins Work Phone: [facility] Work Phone: Start: 06-09-2023 End: 06-09-[address] Mei Cummins Work Phone: [facility] Work Phone: Start: 06-08-2023 End: 06-08-2023 Patient encounter procedure Bela Manzano MD Work Phone: Cardiology Comment on above: Coronary artery dise ase involving bishop [place] coronary artery of [place] heart without angina pectoris (Primary Dx); Essential hypertension; Hyperlipidemia, mixed; Peripheral arterial disease (HCC) Start: 06-03-2023 Refill Jamshid Brown APRN.CNP Work Phone: [facility] Comment on above: Refill Request Start: 05-28-2023 End: 05-28-2023 Emergency department patient visit Dr. Mei Cummins Work Phone: [facility] Work Phone: Start: 05-26-2023 Telephone encounter Salazar goodrich DO Work Phone: Hematology/Oncology Comment on above: Results Start: 05-24-2023 Refill Mei gee MD Work Phone: [facility] [place] Comment on above: Refill Request Start: 05-21-2023 End: 05-21-2023 Subsequent hospital visit by physician [facility] ([facility]) Work Phone: Cat Scan Comment [...] procedure Salazar Meraz DO Work Phone: [facility] Start: 05-18-2023 Telephone encounter Salazar goodrich DO [...] or lung; Hydropneumothorax Start: 04-23-2023 ambulatory Salazar Boykin O Work Phone: Hematology/Oncology Comment on above: Biopsy for James patel Start: 04-18-2023 ambulatory Salazar Boykin O Work Phone: Hematology/Oncology Comment on above: [...] encounter procedure Salazar Meraz DO Work Phone: [facility] Start: 04-08-2023 Telephone encounter Salazar goodrich DO Work Phone: Hematology/Oncology Comment on above: Opened In Error Start: 04-03-2023 End: 04-03-2023 Phys/qhp telephone evaluation 11-20 min Oliverio Herrmann MD Work Phone: [facility] Cardiovascular & Thoracic Surgery Comment on above: Lung nodule (Primary Dx) Start: 04-03-2023 End: 04-03-2023 ambulatory OLIVERIO HERRMANN [facility] Start: 03-31-2023 End: 03-31-2023 ambulatory MEI CUMMINS [facility] Start: 03-31-2023 End: 03-31-2023 Office outpatient visit 40 minutes Oliverio Herrmann MD Work Phone: [facility] Cardiovascular & Thoracic Surgery Comment on above: Lung nodule (Primary Dx) Start: 03-27-2023 Non-patient / Non-visit Dr. Migue Cummins Work Phone: [facility] Work Phone: Start: 03-26-2023 Non-patient / Non-visit Dr. Migue Cummins Work Phone: [facility] Start: 03-26-2023 End: 03-27-2023 Evaluation and management of inpatient Dr. [facility]i Cummins [facility] Work [facility]: Start: 03-26-2023 Non-patient / Non-visit Dr. Migue Cummins Work Phone: [facility] Start: 03-26-2023 Non-patient / Non-visit Dr. Migue Cummins Work Phone: [facility] Work Phone: Start: 03-25-2023 Evaluation and management of inpatient [facility] Unit Work Phone: Start: 03-25-2023 Non-patient / Non-visit Dr. Migue Cummins Work Phone: [facility] Work Phone: Start: 03-25-2023 observation encounter W [facility] Work Phone: Start: 03-23-2023 End: 03-23-[address] Mei Cummins Work Phone: [facility] Work Phone: Start: 03-23-2023 End: 03-23-[address] [facility] Work Phone: Start: 03-03-2023 End: 03-03-[address] [facility] Work Phone: Start: 03-03-2023 End: 03-03-[address] [facility] Start: 02-13-2023 Orders Only Salazar Figueroa [...] Telephone encounter Mei jarquin MD Work Phone: [facility] Comment on above: Forms (To hold Plavi x) Start: 12-19-2022 End: 12-19-2022 Patient encounter procedure Mei Cummins MD Work Phone: [facility] Comment on above: Anxiety (Primary Dx) ; [...] 11-24-2022 Refill Jamshid Brown APRN.CNP Work Phone: [facility] Comment on above: Refill Request Start: 11-24-2022 End: 11-24-2022 Emergency department patient visit Dr. Mei Cummins Work Phone: [facility] Work Phone: Start: 11-18-2022 End: 11-18-2022 Patient encounter procedure Juan Carlos Viveros Work Phone: Podiatry Comment on above: Posterior tibial ten don dysfunction (Primary Dx) Start: 11-18-2022 End: 11-18-2022 Subsequent hospital visit by physician [facility] Cat Scan Comment on above: Malignant neoplasm o f unspecified part of unspecified bronchus or lung (HCC) [C34.90] Start: 11-16-2022 Refill Mei gee MD Work Phone: [facility] Comment on above: Refill Request Start: 11-07-2022 End: 11-07-2022 ambulatory [facility] Work Phone: [facility] Comment on above: Spirometry Start: 11-07-2022 End: 11-07-2022 Patient encounter procedure [facility] Work Phone: [facility] Start: 11-06-2022 ambulatory Ab Calvillo MD Work Phone: Pulmonary Medicine Comment on above: Prednisone Refil Start: 10-23-2022 Telephone encounter Rosalie Martinez PA-C Work Phone: Pulmonary Medicine Comment on above: Orders Start: 10-21-2022 Telephone encounter Mei jarquin MD Work Phone: [facility] Comment on above: Forms (Dasco-RE: Oxy gen) Start: 10-13-2022 End: 10-13-2022 ambulatory [facility] Work Phone: [facility] Comment on above: Spirometry Start: 10-13-2022 End: 10-13-2022 Patient encounter procedure Pul Lab [facility] Work Phone: [facility] Comment on above: 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) (Primary Dx); Dependence on continuous supplemental oxygen; History of cancer of lower lobe bronchus or lung; Bronchiectasis without complication (HCC); Hydropneumothorax Start: 09-29-2022 End: 09-29-2022 Patient encounter procedure Bela Manzano MD Work Phone: Cardiology Comment on above: Coronary artery dise ase involving bishop paiute coronary artery of bishop paiute heart without angina pectoris (Primary Dx); Essential hypertension; Hyperlipidemia, mixed; Peripheral arterial disease (HCC) Start: 09-28-2022 Refill Mei gee MD Work Phone: [facility] Comment on above: Refill Request Start: 09-03-2022 End: 09-03-2022 Patient encounter procedure Juan Carlos Viveros Work Phone: Podiatry Comment on above: Skin ulcer of right heel with fat layer 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) (Primary Dx); Peripheral arterial disease (HCC) Start: 08-28-2022 Telephone encounter Mei jarquin MD Work Phone: [facility] Comment on above: Orders; Patient Ques tion Start: 08-26-2022 End: 08-26-2022 Subsequent hospital visit by physician Xr [facility] Work Phone: Radiology Comment on above: Skin ulcer of right heel with fat layer 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) [L97.412] Start: 08-20-2022 End: 08-20-2022 Patient encounter procedure Juan Carlos Viveros Work Phone: Podiatry Comment on above: Skin ulcer of right heel with fat layer 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) (Primary Dx) Start: 08-07-2022 End: 08-07-[address] Mei Cummins Work Phone: [facility]-Pulmonary Medicine [facility] Work Phone: Start: 08-05-2022 End: 08-05-2022 [...] End: 07-01-2022 Patient encounter procedure Juan Carlos Barberfelix Work Phone: Podiatry Comment on above: Skin ulcer of right heel with fat layer 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) (Primary Dx); Peripheral arterial disease (HCC) Start: 06-26-2022 End: 06-26-2022 Patient encounter procedure Mei Cummins MD Work Phone: [facility] Comment on above: Anxiety (Primary Dx) ; Depression, unspecified depression type; Hyperlipidemia, mixed; Essential hypertension; Chronic obstructive pulmonary disease with acute exacerbation (HCC); Coronary artery 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 bishop paiute heart without angina pectoris; PAD (peripheral artery disease) (HCC); Squamous carcinoma of lung, left (HCC); Status post removal of lung; Acute and chronic respiratory failure with hypoxia (HCC) Start: 06-24-2022 End: 06-24-2022 Patient encounter procedure Juan Carlos Felice Work Phone: Podiatry Comment on above: Skin ulcer of right heel with fat layer 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) (Primary Dx) Start: 06-19-2022 Telephone encounter Juan Carlos Miranda Work Phone: Podiatry Comment on above: apligraf Start: 06-18-2022 End: 06-18-2022 Patient encounter procedure Juan Carlos Barberfelix Work Phone: Podiatry Comment on above: Skin ulcer of right heel with fat layer 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) (Primary Dx); Peripheral arterial disease (HCC) Start: 06-10-2022 End: 06-11-2022 Patient encounter procedure Juan Carlos Barberfelix Work [...] 05-20-2022 End: 05-20-2022 Patient encounter procedure Tyrell Bruno Vigil DO Work Phone: Vascular Surgery Comment on above: Peripheral arterial disease (HCC) (Primary Dx) Start: 05-13-2022 Evaluation and management of inpatient ALEX RIVAS Facility:[facility] Start: 05-12-2022 End: 05-12-2022 Patient encounter procedure Bela Manzano MD Work Phone: Cardiology Comment on above: Coronary artery dise ase involving bishop paiute coronary artery of bishop paiute heart without angina pectoris (Primary Dx); Essential [...] hospital visit by physician [facility] Work Phone: Cardiology Lab Comment on above: Encounter for prepro cedural cardiovascular examination [Z01.810] Start: 04-16-2022 End: 04-16-2022 Patient encounter procedure Juan Carlos Viveros Work Phone: Podiatry Comment on above: 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, with fat layer 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) (Primary Dx); Peripheral arterial disease (HCC) Start: 04-15-2022 Patient encounter status Alyson Davila Palmira PRABHAKAR.MEDICAL DEVICE ASSEMBLER Work Phone: Cardiology Start: 04-15-2022 Telephone encounter Michelle Chavis APRN.MEDICAL DEVICE ASSEMBLER Work Phone: Cardiology Comment on above: Appointment Start: 04-09-2022 End: 04-09-[address] Mei Cummins Work Phone: [facility] Work Phone: Start: 04-09-2022 End: 04-09-[address] Mei Cummins Work Phone: [facility] Start: 04-08-2022 Telephone encounter Alex cuadra [...] 03-19-2022 Subsequent hospital visit by physician Xr [facility] Work Phone: Radiology Comment on above: Diabetic [...] End: 03-05-2022 Patient encounter procedure Juan Carlos Felice Work Phone: Podiatry Comment on above: Peripheral [...] (HCC) (Primary Dx) Start: 02-20-2022 ambulatory Tyrell Redman Work Phone: Vascular Surgery Comment on above: Test Results Start: 02-18-2022 End: 02-18-2022 Subsequent hospital visit by physician Yaya [facility] [place] Bowser Work Phone: Radiology Comment on above: Peripheral arterial disease (HCC) [I73.9] Start: 02-18-2022 End: 02-18-2022 Patient encounter procedure Juan Carlos Felice Work Phone: Podiatry Comment on above: Peripheral arterial disease (HCC) (Primary Dx); 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 Mei Cummins [facility] Start: 02-04-2022 End: 02-04-2022 Patient encounter procedure Juan Carlos Barberfelix Work Phone: Podiatry Comment on above: Controlled type 2 di abetes mellitus with ulcer of heel (HCC) (Primary Dx); Peripheral arterial disease (HCC) Start: 01-28-2022 End: 01-28-2022 Subsequent hospital visit by physician Xr [facility] Work Phone: Radiology Comment on above: Pressure injury of r ight heel, unstageable (HCC) [L89.610] Start: 01-28-2022 End: 01-28-2022 Patient encounter procedure Juan Carlos Barberjose Work Phone: Podiatry Comment on above: Pressure injury of r ight heel, unstageable (HCC); Peripheral arterial disease (HCC); Fissure in skin of foot Start: 01-25-2022 End: 01-25-2022 Emergency department patient visit [facility]gency [facility] Start: 01-21-2022 End: 01-21-2022 Patient encounter procedure Tyrell Vigil DO Work Phone: Vascular Surgery Comment on above: Diminished pulses in lower extremity (Primary Dx); Screening for nephropathy; Pressure injury of right heel, unstageable (HCC); Peripheral arterial disease (HCC); Fissure in skin of foot Start: 12-16-2021 End: 12-16-2021 Patient encounter procedure Mei Cummins MD Work Phone: [facility] Comment on above: Chronic obstructive pulmonary disease with acute exacerbation (HCC) (Primary Dx); Anxiety; Essential hypertension; Coronary artery 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 bishop paiute heart without angina pectoris; Hypertrophy of prostate with urinary obstruction; Hyperlipidemia, mixed; Squamous carcinoma of lung, left (HCC) Start: 12-15-2021 End: 12-15-2021 [facility] Start: 11-25-2021 End: 11-25-2021 Patient encounter procedure Bela Manzano MD Work Phone: Cardiology Comment on above: Coronary artery dise ase involving bishop paiute coronary artery of bishop paiute heart without angina pectoris (Primary Dx); Essential hypertension; Hyperlipidemia, mixed; Abdominal aortic aneurysm (AAA) without rupture (HCC) Start: 11-19-2021 End: 11-19-2021 Refill Mei Cummins MD Work Phone: [facility] Comment on above: Refill Request Malignant neoplasm o f unspecified part of unspecified bronchus or lung (HCC) (Primary Dx) Start: 11-15-2021 End: 11-15-2021 Subsequent hospital visit by physician Ct [facility] ([facility]) Work Phone: Cat Scan Comment on above: Malignant neoplasm o f unspecified part of unspecified bronchus or lung (HCC) [C34.90] Start: 11-13-2021 Telephone encounter Salazar goodrich DO Work Phone: Hematology/Oncology Comment on above: Lab Orders Start: 10-07-2021 End: 10-07-[address] Mei Cummins Work Phone: [facility] Start: 09-04-2021 End: 09-04-2021 Patient encounter procedure Mei Cummins MD Work Phone: [facility] Comment on above: Chronic obstructive pulmonary disease with acute exacerbation (HCC) (Primary Dx); Essential hypertension; Anxiety; Squamous carcinoma of lung, left (HCC); Coronary artery 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 bishop paiute heart without angina pectoris Start: 09-04-2021 Telephone encounter Bela Manzano MD Work Phone: [facility] Cardiology [place] Comment on above: Cardiac Clearance Start: 08-21-2021 Refill Jamshid Brown APRN.CNP Work Phone: [facility] Comment on above: Refill Request Start: 08-07-2021 End: 08-07-[address] Mei Cummins [facility] Start: 07-21-2021 Refill Mei gee MD Work Phone: [facility] Comment on above: Refill Request Start: 07-19-2021 End: 07-19-2021 ambulatory Salazar Meraz DO Work Phone: Hematology/Oncology Comment on above: Malignant neoplasm o f unspecified part of unspecified bronchus or lung (HCC) (Primary Dx); Chronic post-thoracotomy pain Start: 07-19-2021 End: 07-19-2021 Patient encounter procedure Salazar Meraz DO Work Phone: [facility] [facility] Start: 07-15-2021 End: 07-15-2021 Subsequent hospital visit by physician Ct [facility] Work Phone: Cat Scan Comment on above: Malignant neoplasm o f unspecified part of unspecified bronchus or lung (HCC) [C34.90] Start: 07-12-2021 Orders Only Salazar Figueroa Work Phone: Hematology/Oncology Comment on above: Cancer of trachea, b ronchus, and lung (HCC) (Primary Dx) Start: 06-04-2021 End: 06-04-2021 Patient encounter procedure Mei Cummins MD Work Phone: Family Medicine [place] Comment on above: Anxiety (Primary Dx) ; Depression, unspecified depression type; Hypertrophy of prostate with urinary obstruction; Coronary artery 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 bishop paiute heart without angina pectoris; Essential hypertension; Hyperlipidemia, [...] End: 10-04-2020 Subsequent hospital visit by physician Xr [facility] [place] Work Phone: Radiology Comment on above: Rib pain on left hiren e [R07.81] Start: 04-05-2020 End: 04-07-2020 Evaluation and management of inpatient Eva Kibe Work Phone: [facility] 5W TELEMETRY Comment on above: Other pneumothorax ( Primary Dx); Dyspnea on exertion Start: 02-20-2020 End: 03-03-2020 Evaluation and management of inpatient Oliverio Ochoainal Work Phone: [facility] H6 TELEMETRY Comment on above: Lung nodule (Primary Dx) Start: 02-16-2020 End: 02-16-2020 Subsequent hospital visit by physician Oliverio Ochoainal Work Phone: [facility] Comment on above: Nodule of left lung Start: 02-16-2020 End: 02-16-2020 Subsequent hospital visit by physician Oliverio Ochoainal Work Phone: [facility] Pre-Admit Testing Comment on above: Pulmonary nodule Start: 03-04-2018 Ambulatory [facility] Facility :[facility] Start: 06-26-2017 End: 06-26-2017 [facility] Facility:[facility] Procedures Date Procedure Procedure Detail Performing Clinician Start: 09-17-2024 X-ray of chest, PA and lateral views Dr. Mei Cummins MD Work Phone: Start: 09-17-[address] Mei Cummins MD Work Phone: Start: 09-17-2024 Mean corpuscular hemoglobin concentration determination Dr. Mei Cummins MD Work Phone: Start: 09-17-2024 Platelet mean volume determination Dr. Justus Cummins MD Work Phone: Start: 09-15-[address] Mei Cummins MD Work Phone: Start: 09-15-[address] Mei Cummins MD Work Phone: Start: 09-15-2024 End: 09-15-2024 Microbial culture, routine Dr. Mei Cummins MD Work Phone: Start: 07-13-[address] Mei Cummins MD Work Phone: Start: 07-13-[address] Mei Cummins MD Work Phone: Start: 07-13-2024 End: 07-13-2024 Microbial culture, routine Dr. Mei Cummins MD Work Phone: Start: 06-30-2024 Measurement of fungal antibody Dr. Mei Cummins MD Work Phone: Comment on above: Negative: <45 Equivocal: 45-50 Positive: >50 Start: 06-13-2024 Blood count smear mcrscp w/mnl difrntl wbc count Dr. Mei Cummins MD Work Phone: Comment on above: This test was performed using the [employer] tPSA method. Measured values of a patient sample can vary depending on the testing procedure used. PSA values determined on patient samples by different testing procedures cannot be used interchangeably. If there is a change in PSA assays while monitoring therapy, sequential testing should be performed to confirm baseline values. Start: 06-13-2024 Mean corpuscular hemoglobin concentration determination [...] smear mcrscp w/mnl difrntl wbc count Dr. eMi Cummins MD Work Phone: Start: 06-08-2024 Mean [...] MD Work Phone: Start: 05-22-2024 Dr. Mei Cummins MD Work Phone: Start: 05-22-2024 CT angiography [...] Start: 04-24-2022 Myocardial spect multiple studies Fish Boykin Pete DO Work Phone: Start: 04-24-2022 Echo tthrc r-t 2d w/wom-mode compl spec&colr d Tyrell Boykin Pete DO Work Phone: Start: 03-19-2022 Radex [...] exam chest 2 views Twila Darling nhof OIL DELIVERER.MEDICAL DEVICE ASSEMBLER Work Phone: Start: 04-07-2020 HOME O2 EVAL [...] Mei Cummins MD Work Phone: History of coronary artery bypass grafting Dr. Mei Cummins MD Work Phone: History of placement of stent for coronary artery disease S/P coronary artery stent placement, status post multiple stent placements Michelle Chavis APRN.MEDICAL DEVICE ASSEMBLER Work Phone: History of placement of stent for coronary artery disease Dr. Mei Cummins MD Work Phone: Comment on above: 3-4 stents per patinet History of transuret hral prostatectomy Dr. Mei Cummins MD Work Phone: SARS-CoV-2 & FLU Antigen (Rapid) Plan of Treatment Date Care Activity Detail Author Start: 06-23-2027 Diabetes Screening Diabetes Screening [facility] Start: 04-26-2027 Diabetes Screening Diabetes Screening [facility] Start: 04-02-2026 Diabetes Screening Diabetes Screening [facility] Start: 06-22-2025 Hepatitis B surface antibody level LDL Cholesterol [facility] Start: 04-26-2025 Hepatitis B surface antibody level LDL Cholesterol [facility] Start: 03-27-2025 End: 03-27-2025 Patient encounter procedure 03/27/2025 1:20 PM EST Office Visit Cardiology [address] [place], [place] [address] Bela Manzano MD [address] [facility] [address] [place], [place] [id number] 6 month follow up Cardiology Comment on above: 6 month follow up Start: 12-02-2024 End: 12-02-2024 Patient encounter procedure 12/02/2024 1:00 PM EDT Office Visit Pulmonary Medicine [address] [place], [place] [id number] Kailash Cordova APRN.MEDICAL DEVICE ASSEMBLER [address] [place] [address] 3 MTH F/U Pulmonary Medicine Comment on above: 3 MTH F/U Start: 11-26-2024 DIABETES SCREEN DIABETES SCREEN [facility] Start: 11-15-2024 DIABETES SCREEN DIABETES SCREEN [facility] Start: 10-31-2024 Influenza vaccination Influenza Vaccine (#1) [facility] Start: 10-19-2024 End: 10-19-2024 ambulatory 10/19/2024 11:10 AM EDT Visit (SP) Office Hematology/Oncology [address] [place] [address] Salazar Meraz DO [address] [place] [address] OV* Hematology/Oncology Comment on above: OV* Start: 10-04-2024 End: 10-04-2024 Patient encounter procedure 10/04/2024 1:20 PM EDT Office Visit Family Medicine [place] [address] [place] [address] Mei Cummins MD [address] [place] [address] 3 mo f/u [facility] Comment on above: 3 mo f/u Start: 09-17-2024 [facility] Start: 09-16-2024 End: 09-16-2024 ambulatory Hematology/Oncology Comment on above: 6MO OV/ CT 09/12* CBC/6MO OV/ CT 09/12* Start: 09-15-2024 Source specific culture [facility] Start: 09-15-2024 [facility] Start: 09-12-2024 End: 09-12-2024 Patient encounter procedure 09/12/2024 1:20 PM EDT Appointment Cat Scan [address] [place] [address] Squamous carcinoma of lung, 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.92] Cat Scan Comment on above: Squamous carcinoma of lung, left (HCC) [ C34.92] Start: 09-09-2024 End: 12-09-2024 Creatinine and Glomerular filtration rate.predicted panel - Serum, Plasma or Blood CREATININE BLD Lab Routine Malignant neoplasm of unspecified part of unspecified bronchus or lung (HCC) Lung nodules Expected: 09/09/2024, Expires: 12/09/2024 [facility] Work Phone: Comment on above: Expected: 09/09/2024, Expires: Start: 09-09-2024 End: 09-09-2024 Patient encounter procedure 09/09/2024 2:00 PM EDT Appointment Cat Scan [address] [place] [address] Squamous carcinoma of lung, 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.92] Cat Scan Comment on above: Squamous carcinoma of lung, left (HCC) [ C34.92] Start: 09-09-2024 End: 09-09-2024 ambulatory 09/09/2024 1:45 PM EDT Results Only [place] Gallaghern [facility] Laboratory [address] [place] [place] [address] [facility] Comment on above: creatinine Start: 08-31-2024 End: 08-31-2024 Patient encounter procedure Pulmonary Medicine Comment on above: 3 month follow up Start: 08-01-2024 End: 08-01-2024 Patient encounter procedure Cardiology Comment on above: 7 month follow up Start: 07-27-2024 End: 07-27-2024 ambulatory 07/27/2024 1:00 PM EDT Results Only [place] Pruett [facility] Laboratory [address] [place] [address] CBC/reticulocyte count/iron levels [place] Destrehan [facility] Laboratory Comment on above: CBC/reticulocyte count/iron levels Start: 07-21-2024 End: 07-21-2024 Patient encounter procedure 07/21/2024 2:00 PM EDT Appointment Radiology [address] [place] [address] mri outside order is scanned Radiology Comment on above: mri outside order is scanned Start: 07-18-2024 End: 10-17-2024 Ferritin [Mass/volume] in Serum or Plasma [facility] Comment on above: Expected: 07/18/2024, Expires: Start: 07-18-2024 End: 10-17-2024 Iron and Iron binding capacity panel - Serum or Plasma [facility] Work Phone: Comment on above: Expected: 07/18/2024, Expires: Start: 07-18-2024 End: 07-18-2024 ambulatory 07/18/2024 12:45 PM EDT Results Only [place] Destrehan [facility] Laboratory [address] [place] [address] CBC/reticulocyte count/iron levels [place] [facility] Comment on above: CBC/reticulocyte count/iron levels Start: 07-15-2024 DIABETES SCREEN DIABETES SCREEN [facility] Start: 07-13-2024 Source specific culture [facility] Start: 07-13-2024 Microbial culture, routine [place] Start: 07-13-2024 [facility] Start: 07-07-2024 End: 07-07-2024 Patient encounter procedure 07/07/2024 2:30 PM EDT Office Visit Vascular Surgery [address] [address] Betito Mauro MD [address], [address] [address] 3 MONTH FOLLOW UP Vascular Surgery Comment on above: 3 MONTH FOLLOW UP Start: 07-01-2024 End: 07-01-2024 ambulatory 07/01/2024 3:30 PM EDT Infusion Center Hematology/Oncology [address] [place] [address] 2ND FLOOR Hematology/Oncology Comment on above: 2ND FLOOR Start: 07-01-2024 End: 07-01-2024 Patient encounter procedure Family Gabrielle [place] Comment on above: 6 month follow up 6 month follow up - recent ED visits with admission Start: 06-30-2024 [facility] Start: 06-29-2024 End: 06-29-2024 ambulatory 06/29/2024 3:30 PM EDT Infusion Center Hematology/Oncology [address] [place] [address] 2ND FLOOR Hematology/Oncology Comment on above: 2ND FLOOR Start: 06-28-2024 End: 06-28-2024 Patient encounter procedure 06/28/2024 2:00 PM EDT Office Visit Family Medicine [place] [address] [place] [address] Mei Cummins MD [address] [address] 6 month follow up Family Medicine [place] Comment on above: 6 month follow up Start: 06-27-2024 End: 06-27-2024 ambulatory 06/27/2024 2:30 PM EDT Infusion Center Hematology/Oncology [address] [place] [id number] 2ND FLOOR Hematology/Oncology Comment on above: 2ND FLOOR Start: 06-24-2024 End: 06-24-2024 Patient encounter procedure 06/24/2024 11:30 AM EDT Office Visit Pulmonary Medicine [address] [place] [id number] Kailash Cordova APRN.MEDICAL DEVICE ASSEMBLER [address] [place] [address] [facility] hosp follow up GI bleed and stopping prednisone Pulmonary Medicine Comment on above: [facility] hosp follow up GI bleed and stopping prednisone Start: 06-23-2024 End: 06-23-2024 ambulatory 06/23/2024 1:30 PM EDT Infusion Center Hematology/Oncology [address] [place] [address] 2ND FLOOR Hematology/Oncology Comment on above: 2ND FLOOR Start: 06-22-2024 End: 09-21-2024 Comprehensive metabolic 2000 panel - Serum or Plasma COMPREHENSIVE METABOLIC PANEL Lab Routine Hyperlipidemia, mixed Expected: 06/22/2024, Expires: 09/21/2024 [facility] Comment on above: Expected: 06/22/2024, Expires: Start: 06-22-2024 Covid-19 Vaccine () Covid-19 Vaccine () [facility] Start: 06-22-2024 End: 09-21-2024 Hemoglobin A1c in Blood HEMOGLOBIN A1C Lab Routine Elevated glucose Expected: 06/22/2024, Expires: 09/21/2024 [facility] Work Phone: Comment on above: Expected: 06/22/2024, Expires: Start: 06-22-2024 End: 09-21-2024 Lipid 1996 panel - Serum or Plasma LIPID PANEL BASIC Lab Routine Hyperlipidemia, mixed Expected: 06/22/2024, Expires: 09/21/2024 [facility] Comment on above: Expected: 06/22/2024, Expires: Start: 06-21-2024 Annual PCP Team Chronic Disease Visit Annual PCP Team Chronic Disease Visit [facility] Start: 06-21-2024 BP Controlled (<130/80) BP Controlled (<130/80) [facility] Start: 06-20-2024 End: 06-20-2024 Patient encounter procedure 06/20/2024 1:20 PM EDT Office Visit Cardiology [address] [place] [id number] Bela Manzano MD [address] [facility] [address] [place] [address] 6 mo follow up Cardiology Comment on above: 6 mo follow up Start: 06-13-2024 End: 06-13-2024 ambulatory 06/13/2024 12:00 PM EDT Results Only Im[facility] [address] [place] [address] LAB- CBC(?TX)IRON STUDIES/RETIC COUNT [facility] Comment on above: LAB- CBC(?TX)IRON STUDIES/RETIC COUNT Start: 06-10-2024 End: 09-09-2024 CBC W Auto Differential panel - Blood COMPLETE BLOOD COUNT AND DIFFERENTIAL Lab STAT Prostate cancer (HCC) Expected: 06/10/2024, Expires: 09/09/2024 [facility] Work Phone: Comment on above: Expected: 06/10/2024, Expires: Start: 06-10-2024 End: 09-09-2024 Ferritin [Mass/volume] in Serum or Plasma FERRITIN Lab Routine Prostate cancer (HCC) Expected: 06/10/2024, Expires: 09/09/2024 [facility] Comment on above: Expected: 06/10/2024, Expires: Start: 06-10-2024 End: 09-09-2024 Iron and Iron binding capacity panel - Serum or Plasma IRON AND TIBC Lab Routine Prostate cancer (HCC) Expected: 06/10/2024, Expires: 09/09/2024 [facility] Comment on above: Expected: 06/10/2024, Expires: Start: 06-10-2024 End: 09-09-2024 RETICULOCYTE COUNT RETICULOCYTE COUNT Lab Routine Prostate cancer (HCC) Expected: 06/10/2024, Expires: 09/09/2024 [facility] Comment on above: Expected: 06/10/2024, Expires: Start: 06-05-[address] [facility] Start: 06-04-[address] [facility] Start: 06-04-2024 Consultation for treatment [place] Start: 06-03-2024 End: 06-03-2024 Administration of blood product [facility] Start: 06-03-2024 Transfusion of red blood cells [facility] Start: 06-03-2024 Care planning and problem solving actions [facility] Start: 06-03-2024 [facility] Start: 06-03-2024 Following clinical pathway protocol [facility] Start: 06-03-2024 Application of intermittent pneumatic compression device [facility] Start: 06-03-2024 Assessment of risk of venous thromboembolism [facility] Start: 06-03-2024 Insertion of catheter into peripheral vein [facility] Start: 06-03-[address] [facility] Start: 06-03-2024 Providing care according to standard [facility] Start: 06-03-2024 Provision of activity privileges [facility] Start: 06-03-2024 Referral to gastroenterology service [facility] Start: 06-03-2024 Referral to occupational therapist [facility] Start: 06-03-[address] [facility] Start: 06-03-2024 [facility] Start: 06-03-[address] [facility] Start: 06-03-[address] [facility] Start: 06-03-2024 Patient referral to dietitian [facility] Start: 06-01-[address] [facility] Start: 06-01-2024 Microbial culture, routine [place] Start: 06-01-2024 End: 06-01-2024 Patient encounter procedure Pulmonary Medicine Comment on above: 4 month f/u Start: 06-01-2024 [facility] Start: 06-01-2024 Source specific culture [facility] Start: 05-24-[address] [facility] Start: 05-24-[address] [facility] Start: 05-22-2024 Following clinical pathway protocol [facility] Start: 05-22-[address] [facility] Start: 05-22-2024 Assessment of risk of venous thromboembolism [facility] Start: 05-22-[address] [facility] Start: 05-22-2024 Insertion of catheter into peripheral vein [facility] Start: 05-22-[address] [facility] Start: 05-22-2024 Providing care according to standard [facility] Start: 05-22-2024 Referral to occupational therapist [facility] Start: 05-22-[address] [facility] Start: 05-22-2024 End: 05-22-2024 [facility] Start: 05-22-2024 Legionella pneumophila Ag [Presence] in Urine [facility] Start: 05-22-2024 Respiratory pathogens DNA and RNA panel - Respiratory specimen by DORYS with probe detection [facility] Start: 05-22-2024 Streptococcus pneumoniae antigen assay [facility] Start: 05-22-[address] [facility] Start: 05-22-2024 Hospital admission, emergency, from emergency room, medical nature [facility] Start: 05-22-[address] [facility] Start: 05-22-2024 Bacteria identified in Blood by Culture Blood Culture [facility] Start: 05-22-2024 Blood culture Blood Culture [facility] Start: 05-22-2024 End: 05-22-2024 [facility] Start: 05-22-2024 Patient referral to dietitian [facility] Start: 05-20-2024 End: 05-20-2024 Patient encounter procedure 05/20/2024 2:15 PM EDT Office Visit Pulmonary Medicine [address] [place], [place] [address] Ab Calvillo MD [address] [place] [address] 4 month f/u Pulmonary Medicine Comment on above: 4 month f/u Start: 04-26-2024 End: 04-26-2024 Patient encounter procedure 04/26/2024 1:30 PM EST Office Visit Podiatry [address] [place] [id number] Juan Carlos Viveros [address] [id number] 2 week follow up Podiatry Comment on above: 2 week follow up Start: 04-23-2024 DIABETES SCREEN DIABETES SCREEN [facility] Start: 04-14-2024 End: 04-14-2024 Patient encounter procedure 04/14/2024 2:30 PM EST Office Visit Vascular Surgery [address] [id number] Betito Mauro MD [address] [place] [address] 4 week F/U Vascular Surgery Comment on above: 4 week F/U Start: 04-14-2024 BP Controlled (<130/80) BP Controlled (<130/80) [facility] Start: 04-12-2024 End: 04-12-2024 Patient encounter procedure 04/12/2024 1:30 PM EST Office Visit Podiatry [address] [place] [id number] Juan Carlos Viveros [address] [phone] 2 week follow up Podiatry Comment on above: 2 week follow up Start: 04-02-2024 Hepatitis B surface antibody level LDL Cholesterol [facility] Start: 03-29-2024 End: 03-29-2024 Patient encounter procedure 03/29/2024 1:30 PM EST Office Visit Podiatry [address] [place] [address] Juan Carlos Viveros [address] [address] 2 week follow up Podiatry Comment on above: 2 week follow up Start: 03-23-2024 Annual PCP Team Chronic Disease Visit Annual PCP Team Chronic Disease Visit [facility] Start: 03-23-2024 End: 06-22-2024 Hepatic function 2000 panel - Serum or Plasma HEPATIC FUNCTION PNL Lab Routine Encounter for long-term (current) use of medications Expected: 03/23/2024, Expires: 06/22/2024 [facility] Work Phone: Comment on above: Expected: 03/23/2024, Expires: Start: 03-23-2024 End: 03-23-2024 Patient encounter procedure 03/23/2024 2:00 PM EST Office Visit Pulmonary Medicine [address] [place] [address] Rosalie Martinez, PA-C [address] [place] [address] 6 MTH F/U Pulmonary Medicine Comment on above: 6 MTH F/U Start: 03-22-2024 End: 06-21-2024 Basic metabolic 2000 panel - Serum or Plasma BASIC METABOLIC PANEL Lab Routine Essential hypertension Expected: 03/22/2024, Expires: 06/21/2024 [facility] Work Phone: Comment on above: Expected: 03/22/2024, Expires: Start: 03-21-2024 End: 03-21-2024 ambulatory 03/21/2024 3:10 PM EST Visit (SP) Office Hematology/Oncology [address] [place] [phone] Salazar Meraz DO [address] [place] [address] 3 MO OV/CT 03/07* Hematology/Oncology Comment on above: 3 MO OV/CT 03/07* Start: 03-15-2024 End: 03-15-2024 Patient encounter procedure 03/15/2024 2:45 PM EST Office Visit Vascular Surgery [address] [place] [address] Tyrell Vigil, DO [address] [place] [address] 6 month follow up Vascular Surgery Comment on above: 6 month follow up Start: 03-15-2024 End: 03-15-2024 Patient encounter procedure 03/15/2024 1:15 PM EST Office Visit Podiatry [address] [place] [phone] Juan Carlos Viveros [address] [address] 2 week follow up Podiatry Comment on above: 2 week follow up Start: 03-14-2024 End: 03-14-2024 Patient encounter procedure 03/14/2024 2:20 PM EST Appointment Cat Scan [address] [place] [phone] Squamous carcinoma of lung, 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.92] Cat Scan Comment on above: Squamous carcinoma of lung, left (HCC) [ C34.92] Start: 03-14-2024 End: 03-14-2024 ambulatory 03/14/2024 2:00 PM EST Results Only [facility] [address] [place] [id number] CREATININE(S)* [facility] Comment on above: CREATININE(S)* Start: 03-10-2024 End: 03-10-2024 Patient encounter procedure Vascular Surgery Comment on above: [facility] AND ONE MONTH FOLLOW UP Start: 03-07-2024 End: 02-04-2025 US Lower extremity artery - bilateral PVR ANK/JUARES/TOE [facility] Vascular Lab Routine Peripheral arterial disease (HCC) Expected: 03/07/2024, Expires: 02/04/2025 [facility] Work Phone: Comment on above: Expected: 03/07/2024, Expires: Start: 03-03-2024 End: 03-03-2024 Patient encounter procedure 03/03/2024 2:30 PM EST Office Visit Podiatry [address] [place] [address] Juan Carlos Viveros [address] [address] 2 week follow up Podiatry Comment on above: 2 week follow up Start: 03-02-2024 Advance Directive Discussion Advance Directive Discussion [facility] Start: 02-23-2024 End: 02-23-2024 Patient encounter procedure 02/23/2024 10:30 AM EST Office Visit Vascular Surgery [address] [place] [address] Tyrell Vigil, DO [address] [place] [address] 6 month follow up Vascular Surgery Comment on above: 6 month follow up Start: 02-22-[address] [facility] Start: 02-21-[address] [facility] Start: 02-20-[address] [facility] Start: 02-19-2024 Following clinical pathway protocol [facility] Start: 02-19-2024 Assessment of risk of venous thromboembolism [facility] Start: 02-19-[address] [facility] Start: 02-19-2024 Insertion of catheter into peripheral vein [facility] Start: 02-19-2024 Introduction of urinary catheter [facility] Start: 02-19-2024 Measuring intake and output [facility] Start: 02-19-[address] [facility] Start: 02-19-[address] [facility] Start: 02-19-2024 Providing care according to standard [facility] Start: 02-19-2024 Provision of activity privileges [facility] Start: 02-19-2024 Referral to occupational therapist [facility] Start: 02-19-[address] [facility] Start: 02-19-2024 [facility] Start: 02-19-[address] [facility] Start: 02-19-[address] [facility] Start: 02-17-2024 End: 02-17-2024 Patient encounter procedure Vasculary Surgery Comment on above: Peripheral arterial disease (HCC) [I73.9 ]; Abdominal aortic ectasia (HCC) [I77.811] Start: 02-16-2024 End: 02-16-2024 Patient encounter procedure 02/16/2024 11:15 AM EST Office Visit Podiatry [address] [place] [address] Juan Carlos Viveros [address] [phone] 2 week follow up Podiatry Comment on above: 2 week follow up Start: 02-15-2024 End: 02-15-2024 Patient encounter procedure 02/15/2024 1:40 PM EST Office Visit Cardiology [address] [place] [address] Bela Manzano MD [address] [facility] [address] [place] [address] 6 mo follow up Cardiology Comment on above: 6 mo follow up Start: 02-05-2024 End: 02-05-2024 Patient encounter procedure 02/05/2024 11:30 AM EST Office Visit Vascular Surgery [address] [phone] Betito Mauro MD [address], [address] [place] [address] CT results Vascular Surgery Comment on above: CT results Start: 02-04-2024 End: 02-04-2024 Patient encounter procedure 02/04/2024 12:30 PM EST Office Visit Vasculary Surgery [address] [place] [address] Skin ulcer, limited to breakdown of skin [...] disease, unspecified (HCC) Expected: 01/29/2024, Expires: 04/29/2024 [facility] Work Phone: Comment on above: Expected: 01/29/2024, Expires: Start: 01-22-2024 End: 01-22-2024 Patient encounter procedure 01/22/2024 12:30 PM EST Office Visit Vascular Surgery [address] [address] Betito Mauro MD [address], [place] [phone] referral from dr. viveros Vascular Surgery Comment on above: referral from dr. viveros Start: 01-21-2024 End: 01-21-2024 Patient encounter procedure Podiatry Comment on above: 2 week follow up ankle ulcer Start: 01-19-2024 End: 04-19-2024 Bacteria identified in Unspecified specimen by Respiratory culture RESPIRATORY CULTURE AND STAIN Microbiology Routine Expected: 01/19/2024, Expires: 04/19/2024 [facility] Work Phone: Comment on above: Expected: 01/19/2024, Expires: Start: 01-19-2024 End: 01-19-2024 Patient encounter procedure 01/19/2024 1:15 PM EST Office Visit Podiatry [address] [place] [address] Juan Carlos Viveros [address] [place] [address] 2 week follow up ankle ulcer Podiatry Comment on above: 2 week follow up ankle ulcer Start: 01-12-2024 End: 01-06-2025 CT Chest WO contrast [facility] Work Phone: Comment on above: Expected: 01/12/2024 (Approximate), Expi res: 01/06/2025 Start: 01-12-2024 End: 01-12-2024 Patient encounter procedure 01/12/2024 1:00 PM EST Appointment Cat Scan [address] [place] [address] CT CHEST Cat Scan Comment on above: CT CHEST Start: 01-05-2024 End: 01-05-2024 Patient encounter procedure 01/05/2024 1:00 PM EST Office Visit Podiatry [address] [place] [address] Juan Carlos Viveros [address] [place] [address] 2 week follow up ankle ulcer Podiatry Comment on above: 2 week follow up ankle ulcer Start: 12-24-2023 End: 12-24-2023 Patient encounter procedure 12/24/2023 3:15 PM EDT Office Visit Podiatry [address] [place] [address] Juan Carlos Viveros [address] [place] [address] 2 week follow up ankle ulcer Podiatry Comment on above: 2 week follow up ankle ulcer Start: 12-23-2023 End: 12-23-2023 Patient encounter procedure 12/23/2023 1:40 PM EDT Office Visit [facility] [address] [place] [address] Twila Weston APRN.MEDICAL DEVICE ASSEMBLER [address] [place] [address] 3 mo f/u - meds [facility] Comment on above: 3 mo f/u - meds Start: 12-22-2023 End: 12-22-2023 Patient encounter procedure 12/22/2023 2:00 PM EDT Office Visit [facility] [address] [place] [address] eMi Cummins MD [address] [place] [address] 3 mo f/u - meds [facility] Comment on above: 3 mo f/u - meds Start: 12-21-2023 End: 12-21-2023 Patient encounter procedure 12/21/2023 1:00 PM EDT Office Visit Cardiology [address] [place] [phone] Bela Manzano MD [address] [address] 6 month follow up Cardiology Comment on above: 6 month follow up Start: 12-20-2023 Annual PCP Team Chronic Disease Visit Annual PCP Team Chronic Disease Visit [facility] Start: 12-10-2023 End: 12-10-2023 Patient encounter procedure 12/10/2023 3:00 PM EDT Office Visit Podiatry [address] [place] [address] Juan Carlos Viveros [address] [place] [address] 2 week follow up ankle ulcer Podiatry Comment on above: 2 week follow up ankle ulcer Start: 12-08-2023 End: 03-08-2024 Bacteria identified in Unspecified specimen by Respiratory culture [facility] Comment on above: Expected: 12/08/2023, Expires: Start: 12-08-2023 End: 12-08-2023 Patient encounter procedure 12/08/2023 1:30 PM EDT Office Visit Pulmonary Medicine [address] [place] [address] Kailash Cordova APRN.MEDICAL DEVICE ASSEMBLER [address] [place] [address] Stage 3 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 [...] Office Visit Podiatry [address] [place] [address] Juan Carlos Viveros [address] [place] [address] folllow up ulcer looking bad again Podiatry Comment on above: folllow up ulcer looking bad again Start: 11-13-2023 End: 11-13-2023 Patient encounter procedure 11/13/2023 2:20 PM EDT Appointment Cat Scan [address] [place] [address] Squamous carcinoma of lung, 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.92]; Lung nodules [R91.8] Cat Scan Comment on above: Squamous carcinoma of lung, left (HCC) [ C34.92]; Lung nodules [R91.8] Start: 11-13-2023 End: 02-12-2024 CREATININE BLD CREATININE BLD Lab Routine Squamous carcinoma of lung, left (HCC) Expected: 11/13/2023, Expires: 02/12/2024 [facility] Work Phone: Comment on above: Expected: 11/13/2023, Expires: Start: 11-13-2023 End: 11-13-2023 ambulatory 11/13/2023 1:45 PM EDT Results Only [facility] [address] [place] [address] [facility] Comment on above: Lab for CT Start: 11-12-2023 Hepatitis B surface antibody level LDL Cholesterol [facility] Start: 11-01-2023 Covid-19 Vaccine () Covid-19 Vaccine () [facility] Start: 11-01-2023 Covid-19 Vaccine () Covid-19 Vaccine () [facility] Start: 11-01-2023 Influenza vaccination Influenza Vaccine (#1) [facility] Start: 10-29-2023 End: 10-29-2023 Patient encounter procedure 10/29/2023 2:20 PM EDT Office Visit Family Medicine [place] [address] [place] [address] Mei Cummins MD [address] [place] [address] [facility] transitional care unit, resp failure/fall 10/16, discharging on 10/24 Family [facility]ri[facility] [place] Comment on above: [facility] transitional care unit, resp failure /fall 10/16, discharging on 10/24 Start: 10-23-2023 End: 10-23-2023 Patient encounter procedure 10/23/2023 11:20 AM EDT Appointment Cat Scan [address] [place] [address] Squamous carcinoma of lung, 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.92]; Lung nodules [R91.8] Cat Scan Comment on above: Squamous carcinoma of lung, left (HCC) [ C34.92]; Lung nodules [R91.8] Start: 10-23-2023 End: 10-23-2023 ambulatory 10/23/2023 11:00 AM EDT Results Only [place] Pruett [facility] [address] [place] [address] CREATININE(S)* [place] Laboratory Comment on above: CREATININE(S)* Start: 10-14-2023 End: 10-14-2023 Patient encounter procedure 10/14/2023 3:00 PM EDT Office Visit Pulmonary Medicine [address] [place] [address] Kailash Cordova APRN.MEDICAL DEVICE ASSEMBLER [address] [place] [address] ER follow up Pulmonary Medicine Comment on above: ER follow up Start: 10-05-2023 End: 10-05-2023 Patient encounter procedure 10/05/2023 2:00 PM EDT Office Visit [facility] Medicine [facility] [address] [place] [address] Mei Cummins MD [address] [address] [facility] f/u 09/27-09/29 Hypoxia/COPD/Gi Bleed [facility] Comment on above: [facility] f/u Hypoxia/COPD/Gi Bleed Start: 10-01-2023 End: 05-31-2024 Alanine aminotransferase [Enzymatic activity/volume] in Serum or Plasma ALT/SGPT Lab Routine Hyperlipidemia, mixed Expected: 10/01/2023, Expires: 05/31/2024 [facility] Work Phone: Comment on above: Expected: 10/01/2023, Expires: Start: 10-01-2023 End: 05-31-2024 Lipid 1996 panel - Serum or Plasma LIPID PANEL BASIC Lab Routine Hyperlipidemia, mixed Expected: 10/01/2023, Expires: 05/31/2024 [facility] Work Phone: Comment on above: Expected: 10/01/2023, Expires: Start: 09-30-2023 End: 05-31-2024 Aspartate aminotransferase [Enzymatic activity/volume] in Serum or Plasma AST/SGOT BLD Lab Routine Hyperlipidemia, mixed Expected: 09/30/2023, Expires: 05/31/2024 [facility] Work Phone: Comment on above: Expected: 09/30/2023, Expires: Start: 09-21-2023 End: 09-21-2023 Patient encounter procedure 09/21/2023 1:40 PM EDT Office Visit Family Medicine [facility] [address] [place], [place] [phone] Mei Cummins MD [address] [place] [address] 3 month follow up Family Medicine [place] Comment on above: 3 month follow up Start: 09-20-2023 ANNUAL PCP TEAM CHRONIC DISEASE VISIT ANNUAL PCP TEAM CHRONIC DISEASE VISIT [facility] Start: 09-20-2023 BP CONTROLLED (<130/80) BP CONTROLLED (<130/80) [facility] Start: 09-16-2023 End: 09-16-2023 Patient encounter procedure 09/16/2023 2:00 PM EDT Office Visit Pulmonary Medicine [address] [place] [address] Rosalie Martinez, PA-C [address] [place] [address] 4 MTH F/U Pulmonary Medicine Comment on above: 4 MTH F/U Start: 09-14-2023 End: 09-14-2023 Patient encounter procedure 09/14/2023 3:40 PM EDT Office Visit Cardiology [address] [place] [id number] Bela Manzano MD [address] [facility] [address] [place] [address] 6 month follow up Cardiology Comment on above: 6 month follow up Start: 08-18-2023 End: 08-18-2023 Patient encounter procedure Vasculary Surgery Comment on above: Peripheral arterial disease (HCC) [I73.9 ] [address] testing Start: 08-06-2023 BP CONTROLLED (<130/80) BP CONTROLLED (<130/80) [facility] Start: 07-30-2023 BP CONTROLLED (<130/80) BP CONTROLLED (<130/80) [facility] Start: 07-30-2023 End: 10-29-2023 CREATININE BLD CREATININE BLD Lab STAT Squamous carcinoma of lung, left (HCC) Expected: 07/30/2023, Expires: 10/29/2023 [facility] Work Phone: Comment on above: Expected: 07/30/2023, Expires: 4 Start: 07-30-2023 End: 07-30-2023 Patient encounter procedure 07/30/2023 11:20 AM EDT Appointment Cat Scan [address] [place] [address] Dx: Squamous carcinoma of lung, 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.92] Cat Scan Comment on above: Dx: Squamous carcinoma of lung, left (HC C) [C34.92] Start: 06-27-2023 ANNUAL PCP TEAM CHRONIC DISEASE VISIT ANNUAL PCP TEAM CHRONIC DISEASE VISIT [facility] Start: 06-25-2023 Hepatitis B surface antibody level LDL CHOLESTEROL [facility] Start: 06-22-2023 End: 09-21-2023 CBC W Auto Differential panel - Blood COMPLETE BLOOD COUNT AND DIFFERENTIAL Lab Routine Squamous cell carcinoma of left lung (HCC) Expected: 06/22/2023, Expires: 09/21/2023 [facility] Work Phone: Comment on above: Expected: 06/22/2023, Expires: 4 Start: 06-22-2023 End: 09-21-2023 PT panel - Platelet poor plasma by Coagulation assay PROTHROMBIN TIME Lab Routine Squamous cell carcinoma of left lung (HCC) Expected: 06/22/2023, Expires: 09/21/2023 [facility] Work Phone: Comment on above: Expected: 06/22/2023, Expires: 4 Start: 05-28-2023 [facility] Start: 05-18-2023 End: 08-17-2023 CREATININE BLD CREATININE BLD Lab STAT Squamous carcinoma of lung, left (HCC) Expected: 05/18/2023, Expires: 08/17/2023 [facility] Work Phone: Comment on above: Expected: 05/18/2023, Expires: Start: 05-01-2023 BP CONTROLLED (<130/80) BP CONTROLLED (<130/80) [facility] Start: 04-21-2023 Covid-19 Vaccine () Covid-19 Vaccine () [facility] Start: 04-03-2023 End: 04-03-2023 Telemedicine consultation with patient 04/03/2023 1:00 PM EST Telemedicine [facility] Cardiovascular & Thoracic Surgery [address] [place] [address] [address] [place] [address] Oliverio Herrmann MD [address] [place] [address], [address] [place] [address] [facility] Start: 03-27-[address] [facility] Start: 03-26-[address] [facility] Start: 03-26-2023 Brain natriuretic peptide measurement [facility] Start: 03-26-[address] [facility] Start: 03-25-2023 Following clinical pathway protocol [facility] Start: 03-25-[address] [facility] Start: 03-25-2023 Assessment of risk of venous thromboembolism [facility] Start: 03-25-[address] [facility] Start: 03-25-[address] [facility] Start: 03-25-2023 Insertion of catheter into peripheral vein [facility] Start: 03-25-[address] [facility] Start: 03-25-2023 Providing care according to standard [facility] Start: 03-25-2023 [facility] Start: 03-25-2023 End: 03-25-[address] [facility] Start: 03-25-[address] [facility] Start: 03-25-2023 Hospital admission, emergency, from emergency room, medical nature [facility] Start: 03-25-2023 [facility] Start: 03-25-[address] [facility] Start: 03-18-2023 ANNUAL PCP TEAM CHRONIC DISEASE VISIT ANNUAL PCP TEAM CHRONIC DISEASE VISIT [facility] Start: 03-18-2023 BP CONTROLLED (<130/80) BP CONTROLLED (<130/80) [facility] Start: 03-03-2023 PET study for localization of tumor PET/CT Tumor Base -Thigh Subs [facility] Start: 03-03-2023 PT Unspecified body region [place] Start: 03-02-2023 Advance Directive Discussion Advance Directive Discussion [facility] Start: 03-02-2023 Behavioral Health Screening Behavioral Health Screening [facility] Start: 03-02-2023 Depression Assessment Depression Assessment [facility] Start: 02-16-2023 End: 05-18-2023 Basic metabolic 2000 panel - Serum or Plasma BASIC METABOLIC PNL Lab STAT Malignant neoplasm of unspecified part of unspecified bronchus or lung (HCC) Expected: 02/16/2023, Expires: 05/18/2023 [facility] [facility] Work Phone: Comment on above: Expected: 02/16/2023, Expires: 4 Start: 02-16-2023 End: 05-18-2023 CBC W Auto Differential panel - Blood CBC + DIFF Lab STAT Malignant neoplasm of unspecified part of unspecified bronchus or lung (HCC) Expected: 02/16/2023, Expires: 05/18/2023 [facility] Work Phone: Comment on above: Expected: 02/16/2023, Expires: 4 Start: 02-16-2023 End: 05-18-2023 Hepatic function 2000 panel - Serum or Plasma HEPATIC FUNCTION PNL Lab Routine Malignant neoplasm of unspecified part of unspecified bronchus or lung (HCC) Expected: 02/16/2023, Expires: 05/18/2023 [facility] Work Phone: Comment on above: Expected: 02/16/2023, Expires: 4 Start: 12-24-2022 [facility] Start: 12-24-2022 Hemoglobin A1c/Hemoglobin.total in Blood HBA1C [facility] Start: 12-16-2022 ANNUAL PCP TEAM CHRONIC DISEASE VISIT ANNUAL PCP TEAM CHRONIC DISEASE VISIT [facility] Start: 11-26-2022 Hepatitis B surface antibody level LDL CHOLESTEROL [facility] Start: 11-19-2022 BP CONTROLLED (<130/80) BP CONTROLLED (<130/80) [facility] Start: 11-18-2022 Adult depression screening assessment DEPRESSION SCREENING [facility] Start: 10-31-2022 Hemoglobin A1c/Hemoglobin.total in Blood HBA1C [facility] Start: 10-31-2022 Influenza vaccination [facility] Start: 09-29-2022 End: 11-29-2022 Comprehensive metabolic 2000 panel - Serum or Plasma COMP METABOLIC PANEL Lab Routine Coronary artery 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 [place] heart without angina pectoris Hyperlipidemia, mixed Expected: 09/29/2022, Expires: 11/29/2022 [facility] Work Phone: Comment on above: Expected: 09/29/2022, Expires: 3 Start: 09-29-2022 End: 11-29-2022 Lipid 1996 panel - Serum or Plasma LIPID PANEL BASIC Lab Routine Hyperlipidemia, mixed Expected: 09/29/2022, Expires: 11/29/2022 [facility] Work Phone: Comment on above: Expected: 09/29/2022, Expires: 3 Start: 09-04-2022 ANNUAL PCP TEAM CHRONIC DISEASE VISIT ANNUAL PCP TEAM CHRONIC DISEASE VISIT [facility] Start: 09-04-2022 BP CONTROLLED (<130/80) BP CONTROLLED (<130/80) [facility] Start: 07-19-2022 BP CONTROLLED (<130/80) BP CONTROLLED (<130/80) [facility] Start: 06-04-2022 ANNUAL PCP TEAM CHRONIC DISEASE VISIT ANNUAL PCP TEAM CHRONIC DISEASE VISIT [facility] Start: 04-26-2022 Adult depression screening assessment DEPRESSION SCREENING [facility] Start: 03-21-2022 COVID-19 VACCINE (6 - Pfizer series) COVID-19 VACCINE (6 - Pfizer series) [facility] Start: 03-17-2022 End: 05-17-2022 CREATININE BLD CREATININE BLD Lab STAT Diminished pulses in lower extremity Expected: 03/17/2022 (Approximate), Expires: 05/17/2022 [facility] Work Phone: Comment on above: Expected: 03/17/2022 (Approximate), Expi res: 05/17/2022 Start: 03-06-2022 ANNUAL PCP TEAM CHRONIC DISEASE VISIT ANNUAL PCP TEAM CHRONIC DISEASE VISIT [facility] Start: 03-02-2022 ADVANCE DIRECTIVE DISCUSSION ADVANCE DIRECTIVE DISCUSSION [facility] Start: 03-02-2022 DEPRESSION ASSESSMENT DEPRESSION ASSESSMENT [facility] Start: 01-21-2022 End: 03-23-2022 CREATININE BLD CREATININE BLD Lab Routine Screening for nephropathy Expected: 01/21/2022, Expires: 03/23/2022 [facility] Work Phone: Comment on above: Expected: 01/21/2022, Expires: 3 Start: 12-15-2021 [facility] Work Phone: Start: 11-25-2021 End: 01-25-2022 Alanine aminotransferase [Enzymatic activity/volume] in Serum or Plasma ALT/SGPT Lab Routine Hyperlipidemia, mixed Expected: 11/25/2021, Expires: 01/25/2022 [facility] Work Phone: Comment on above: Expected: 11/25/2021, Expires: 2 Start: 11-25-2021 End: 01-25-2022 Aspartate aminotransferase [Enzymatic activity/volume] in Serum or Plasma AST/SGOT BLD Lab Routine Hyperlipidemia, mixed Expected: 11/25/2021, Expires: 01/25/2022 [facility] Work Phone: Comment on above: Expected: 11/25/2021, Expires: 2 Start: 11-25-2021 End: 01-25-2022 Basic metabolic 2000 panel - Serum or Plasma BASIC METABOLIC PNL Lab Routine Coronary artery 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 [place] heart without angina pectoris Hyperlipidemia, mixed Expected: 11/25/2021, Expires: 01/25/2022 [facility] Work Phone: Comment on above: Expected: 11/25/2021, Expires: 2 Start: 11-25-2021 End: 01-25-2022 Lipid 1996 panel - Serum or Plasma LIPID PANEL BASIC Lab Routine Hyperlipidemia, mixed Expected: 11/25/2021, Expires: 01/25/2022 [facility] Work Phone: Comment on above: Expected: 11/25/2021, Expires: 2 Start: 11-15-2021 End: 01-15-2022 CBC W Auto Differential panel - Blood CBC + DIFF Lab STAT Malignant neoplasm of unspecified part of unspecified bronchus or lung (HCC) Expected: 11/15/2021, Expires: 01/15/2022 [facility] Work Phone: Comment on above: Expected: 11/15/2021, Expires: 2 Start: 11-15-2021 End: 01-15-2022 Comprehensive metabolic 2000 panel - Serum or Plasma COMP METABOLIC PANEL Lab STAT Malignant neoplasm of unspecified part of unspecified bronchus or lung (HCC) Expected: 11/15/2021, Expires: 01/15/2022 [facility] Work Phone: Comment on above: Expected: 11/15/2021, Expires: 2 Start: 10-31-2021 Influenza vaccination INFLUENZA (#1) [facility] Start: 07-15-2021 End: 09-14-2021 Basic metabolic 2000 panel - Serum or Plasma BASIC METABOLIC PNL Lab STAT Cancer of trachea, bronchus, and lung (HCC) Expected: 07/15/2021, Expires: 09/14/2021 [facility] Work Phone: Comment on above: Expected: 07/15/2021, Expires: 2 Start: 07-15-2021 End: 09-14-2021 CBC W Auto Differential panel - Blood CBC + DIFF Lab STAT Cancer of trachea, bronchus, and lung (HCC) Expected: 07/15/2021, Expires: 09/14/2021 [facility] Work Phone: Comment on above: Expected: 07/15/2021, Expires: 2 Start: 07-15-2021 End: 09-14-2021 HEPATIC FUNCTION PNL HEPATIC FUNCTION PNL Lab Routine Cancer of trachea, bronchus, and lung (HCC) Expected: 07/15/2021, Expires: 09/14/2021 [facility] Work Phone: Comment on above: Expected: 07/15/2021, Expires: 2 Start: 06-07-2021 COVID-19 VACCINE (4 - Booster for Pfizer series) COVID-19 VACCINE (4 - Booster for Pfizer series) [facility] Start: 04-07-2021 Creatinine measurement Creatinine monitoring [facility] [place] [place] Start: 04-07-2021 Potassium monitoring Potassium monitoring [facility] [place] Start: 04-03-2021 COVID-19 VACCINE (4 - Booster for Pfizer series) COVID-19 VACCINE (4 - Booster for Pfizer series) [facility] Start: 03-03-2021 Creatinine measurement Creatinine monitoring [facility] [place] Start: 03-03-2021 Potassium monitoring Potassium monitoring [facility] [place] Start: 03-02-2021 ADVANCE DIRECTIVE DISCUSSION ADVANCE DIRECTIVE DISCUSSION [facility] Start: 03-02-2021 DEPRESSION ASSESSMENT DEPRESSION ASSESSMENT [facility] Start: 02-15-2021 Creatinine measurement Creatinine monitoring [facility] [place] Start: 02-15-2021 Potassium monitoring Potassium monitoring [facility] [place] Start: 01-31-2021 Hepatitis B surface antibody level LDL CHOLESTEROL [facility] Start: 02-28-2020 Annual Wellness Visit (AWV) Annual Wellness Visit (AWV) [facility] [place] [place] Start: 02-20-2020 Hospital Encounter 02/20/2020 Hospital Encounter General Surgery Oliverio Herrmann MD [address] [place] [address], [id number] [place] [address] [phone] [facility] General Surgery Start: 07-04-2018 Hemoglobin A1c/Hemoglobin.total in Blood HBA1C [facility] Start: 07-01-2007 Medicare Annual Wellness Visit Medicare Annual Wellness Visit [facility] Start: 2002 Hepatitis B Vaccine (1 of 3 - Risk 3-dose series) Hepatitis B Vaccine (1 of 3 - Risk 3-dose series) [facility] Start: 2002 RSV Immunization aged 60 or older (1 - 1-dose 60+ series) RSV Immunization aged 60 or older (1 - 1-dose 60+ series) Start: 2002 RSV Vaccine (1 - 1-dose 60+ series) RSV Vaccine (1 - 1-dose 60+ series) [facility] Start: 1992 Prostate specific antigen measurement PSA counseling [place], [place] Start: 1992 Shingles Vaccine (1 of 2) Shingles Vaccine (1 of 2) [place], [place] Start: 1992 SHINGRIX VACCINE (1 of 2) SHINGRIX VACCINE (1 of 2) [facility] Start: 1992 Zoster Vaccines (1 of 2) Zoster Vaccines (1 of 2) Start: 1961 DTaP/Tdap/Td vaccine (1 - Tdap) DTaP/Tdap/Td vaccine (1 - Tdap) [place], [place] Start: 1961 DTaP/Tdap/Td Vaccines (1 - Tdap) DTaP/Tdap/Td Vaccines (1 - Tdap) Start: 1961 SHINGRIX VACCINE (1 of 2) SHINGRIX VACCINE (1 of 2) [facility] Start: 1961 Urine microalbumin profile [facility] Start: 1960 BP CONTROLLED (<130/80) BP CONTROLLED (<130/80) [facility] Start: 1960 HEPATITIS C SCREENING HEPATITIS C SCREENING [facility] Start: 1958 COVID-19 Vaccine (1 of 2) COVID-19 Vaccine (1 of 2) [place], [place] Start: 1954 Depression Screening Depression Screening Start: 1952 3 comp foot exam completed DIABETIC FOOT EXAM [facility] Start: 1952 Diabetic foot examination Diabetic Foot Exam [facility] Start: 1952 Glaucoma screening Dilated Retinal Exam [facility] Start: 1952 Hepatitis B screening URINE ALBUMIN:CREATININE RATIO [facility] Start: 1952 Hepatitis C antibody, confirmatory test DILATED RETINAL EXAM [facility] Start: 1952 Lipid panel Lipid screen [place], [place] Start: 1942 Hepatitis C screening Hepatitis C screen [place], [place] Start: 1942 Lipid panel [facility] Start: 1942 Medicare Annual Wellness (AWV) Medicare Annual Wellness (AWV) Anion gap in Serum o r Plasma [facility] Bacteria identified in Unspecified specimen by Anaerobe culture [facility] Bacteria identified in Unspecified specimen by Anaerobe culture [facility] Bacteria identified in Unspecified specimen by Anaerobe culture 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 Calcium [Mass/volume ] in Serum or Plasma [facility] Carbon dioxide, tota l [Moles/volume] in Central venous blood [facility] CBC auto differential [place], [place] Comment on above: Daily until discontinued starting 2019, 12 completed Daily until disconti nued starting 04/06/2020, 2 completed Chitobioside IgA Ab [Units/volume] in Serum or Plasma by Immunoassay [facility] End: 02-16-2020 COVID-19 COVID-19 Lab Routine Pulmonary nodule 1 Occurrences starting 02/16/2020 until 02/16/2020 [place], [place] Comment on above: 1 Occurrences starting 02/16/2020 until 02/16/2020 COVID-19 COVID-19 Lab [facility] mon[facility] Pulmonary nodule 02/16/2020 11:51 AM EST [place], [place] Creatinine [Mass/vol ume] in Serum or Plasma [facility] End: 12-19-2022 Ct abdomen & pelvis w/contrast material CT ABD/PEL W IVCON Radiology Routine Malignant neoplasm of unspecified part of unspecified bronchus or lung (HCC) 1 Occurrences starting 11/19/2021 until 12/19/2022 [facility] Work Phone: Comment on above: 1 Occurrences starting 11/19/2021 until 12/19/2022 End: 06-16-2024 CT Chest W contrast IV CT CHEST W IVCON Radiology Routine Squamous carcinoma of lung, left (HCC) 1 Occurrences starting 05/18/2023 until 06/16/2024 [facility] Work Phone: Comment on above: 1 Occurrences starting 05/18/2023 until 06/16/2024 CT Chest W contrast IV CT CHEST W IVCON Radiology Routine Squamous carcinoma of lung, left (HCC) 05/21/2023 1:32 PM EDT [facility] Work Phone: End: 07-18-2024 CT Chest W contrast IV CT CHEST W IVCON Radiology Routine Squamous carcinoma of lung, left (HCC) 1 Occurrences starting 06/19/2023 until 07/18/2024 [facility] Work Phone: Comment on above: 1 Occurrences starting 06/19/2023 until 07/18/2024 CT Chest W contrast IV CT CHEST W IVCON Radiology Routine Squamous carcinoma of lung, left (HCC) 07/30/2023 11:56 AM EDT [facility] Work Phone: End: 09-22-2024 CT Chest W contrast IV CT CHEST W IVCON Radiology Routine Squamous carcinoma of lung, left (HCC) Lung nodules 1 Occurrences starting 08/24/2023 until 09/22/2024 [facility] Work Phone: Comment on above: 1 Occurrences starting 08/24/2023 until 09/22/2024 CT Chest W contrast IV CT CHEST W IVCON Radiology Routine Squamous carcinoma of lung, left (HCC) Lung nodules 11/13/2023 3:25 PM EDT [facility] Work Phone: End: 12-21-2024 CT Chest W contrast IV CT CHEST W IVCON Radiology Routine Squamous carcinoma of lung, left (HCC) 1 Occurrences starting 11/22/2023 until 12/21/2024 [facility] Work Phone: Comment on above: 1 Occurrences starting 11/22/2023 until 12/21/2024 CT Chest W contrast IV CT CHEST W IVCON Radiology Routine Squamous carcinoma of lung, left (HCC) 03/14/2024 2:37 PM EST [facility] Work Phone: End: 04-20-2025 CT Chest W contrast IV CT CHEST W IVCON Radiology Routine Squamous carcinoma of lung, left (HCC) 1 Occurrences starting 03/21/2024 until 04/20/2025 [facility] Work Phone: Comment on above: 1 Occurrences starting 03/21/2024 until 04/20/2025 CT Chest W contrast IV CT CHEST W IVCON Radiology Routine Squamous carcinoma of lung, left (HCC) 09/09/2024 2:57 PM EDT [facility] Work Phone: End: 11-15-2021 CT CHEST W IVCON [facility] Work Phone: Comment on above: 1 Occurrences starting 11/15/2021 until 11/15/2021 End: 12-19-2022 CT CHEST W IVCON CT CHEST W IVCON Radiology Routine Malignant neoplasm of unspecified part of unspecified bronchus or lung (HCC) 1 Occurrences starting 11/19/2021 until 12/19/2022 [facility] Work Phone: Comment on above: 1 Occurrences starting 11/19/2021 until 12/19/2022 End: 08-18-2022 Ct thorax w/contrast material CT CHEST W IVCON Radiology Routine Malignant neoplasm of unspecified part of unspecified bronchus or lung (HCC) 1 Occurrences starting 07/19/2021 until 08/18/2022 [facility] Work Phone: Comment on above: 1 Occurrences starting 07/19/2021 until 08/18/2022 End: 02-20-2023 Cta abdl aorta&bi iliofem w/contrast&postp CTA ABD/PEL LOWER EXTREM W IVCON Radiology Routine Diminished pulses in lower extremity 1 Occurrences starting 01/21/2022 until 02/20/2023 [facility] Work Phone: Comment on above: 1 Occurrences starting 01/21/2022 until 02/20/2023 End: 02-03-2025 CTA Abdominal, Pelvis and Lower extremity vessels W contrast IV CTA ABD/PEL LOWER EXTREM W IVCON Radiology Routine Peripheral vascular disease (HCC) 1 Occurrences starting 01/05/2024 until 02/03/2025 [facility] Work Phone: Comment on above: 1 Occurrences starting 01/05/2024 until 02/03/2025 CTA Abdominal, Pelvi s and Lower extremity vessels W contrast IV CTA ABD/PEL LOWER EXTREM W IVCON Radiology Routine Peripheral vascular disease (HCC) 02/03/2024 2:52 PM EST [facility] Work Phone: End: 09-24-2023 ECG COMPLETE ECG COMPLETE ECG Routine Coronary artery 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 [place] heart without angina pectoris Essential hypertension Hyperlipidemia, mixed 1 Occurrences starting 09/23/2022 until 09/24/2023 [facility] Work Phone: Comment on above: 1 Occurrences starting 09/23/2022 until 09/24/2023 EKG 12 Lead EKG 12 Lead ECG Routine 02/16/2020 12:25 PM EST [employer] [facility] Erythrocyte mean corpuscular volume determination [facility] Glucose [Mass/volume ] in Serum or Plasma [facility] Guidance for biopsy of Lung IMAGING GUIDED BIOPSY LUNG Radiology Routine Squamous carcinoma of lung, left (HCC) Ordered: 05/26/2023 [facility] Work Phone: Comment on above: Ordered: 05/26/2023 Hematocrit [Volume Fraction] of Blood [facility] Hemoglobin [Mass/vol ume] in Blood [facility] End: 03-02-2020 Home O2 eval (desaturation screen) Home O2 eval (desaturation screen) Respiratory Care Routine One Time for 1 Occurrences starting 03/02/2020 until 03/02/2020 [facility] Comment on above: One Time for 1 Occurrences starting 03/2020 until 03/02/2020 End: 04-06-2020 Intermittent pulse oximetry Pulse Oximetry Spot Check Respiratory Care Routine One Time for 1 Occurrences starting 04/06/2020 until 04/06/2020 [facility] [place] Comment on above: One Time for 1 Occurrences starting 06/2020 until 04/06/2020 Laminaribioside IgG Ab [Units/volume] in Serum or Plasma by Immunoassay [facility] Leukocytes [#/volume ] in Blood [facility] Mannobioside IgG Ab [Units/volume] in Serum or Plasma by Immunoassay [facility] MDI Treatment MDI Treatment Respiratory Care Routine (respiratory use only) until discontinued starting 04/06/2020 [facility] [place] Comment on above: (respiratory use only) until d iscontinued starting 04/06/2020 Mean corpuscular hemoglobin concentration determination [facility] Mean corpuscular hemoglobin determination [facility] Measurement of funga l antibody [facility] Measurement of renal function [facility] Measurement of respi ratory function [facility] Nebulizer therapy [facility] [place] Comment on above: 0600, 1000, 1400, 1800, 2200 until disco ntinued starting 02/20/2020 Every 4hr while awak e until discontinued starting 04/06/2020 Neutrophil count [facility] Neutrophil cytoplasm ic Ab.perinuclear.atypical [Titer] in Serum by Immunofluorescence [facility] Neutrophil percent differential count [facility] End: 12-31-2024 OXIMETRY WITH AMBULATION OXIMETRY WITH AMBULATION PFT Routine 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) Chronic hypoxemic respiratory failure (HCC) 1 Occurrences starting 12/02/2023 until 12/31/2024 [facility] Work Phone: Comment on above: 1 Occurrences starting 12/02/2023 until 12/31/2024 Oxygen therapy [[facility] Data Set] Initiate Oxygen Therapy Protocol Respiratory Care Routine Daily until discontinued starting 02/20/2020 [place], [place] Comment on above: Daily until discontinued starting 2019 Patient Education [facility] Work Phone: Patient referral [facility] Work Phone: End: 02-16-[address] SKULL BASE TO MID THIGH PET CT SKULL BASE TO MID THIGH Imaging Routine Nodule of left lung 1 Occurrences starting 02/16/2020 until 02/16/2020 [facility] Comment on above: 1 Occurrences starting 02/16/2020 until 02/16/[address] SKULL BASE TO MID THIGH PET CT SKULL BASE TO MID THIGH Imaging Routine Nodule of left lung 02/16/2020 1:38 PM EST [facility] Platelets [#/volume] in Blood [facility] Potassium measurement [facility] End: 07-30-2023 PVR ANK PRESS [facility] PVR ANK PRESS [facility] Vascular Lab Routine Peripheral arterial disease (HCC) 1 Occurrences starting 07/29/2022 until 07/30/2023 [facility] Work Phone: Comment on above: 1 Occurrences starting 07/29/2022 until 07/30/[address] [facility] Red cell distributio n width determination [facility] RT Communication Order RT Commun ication Order Respiratory Care Routine Daily until discontinued starting 02/20/2020 [facility] Comment on above: Daily until discontinued starting 2019 Serum chloride measurement [facility] Sodium measurement [facility] Spirometry panel Incentive lexus metry RT Respiratory Care Routine Every 2hr while awake until discontinued [facility]06[facility] above: Every 2hr while awake until discontinued starting 04/06/2020 Urea nitrogen [Mass/volume] in Serum or Plasma [facility] End: 08-17-2024 US Abdominal Aorta US ABD AORTA COMPLETE [facility] Vascular Lab Routine Peripheral arterial disease (HCC) Abdominal aortic ectasia (HCC) 1 Occurrences starting 08/18/2023 until 08/17/2024 [facility] Work Phone: Comment on above: 1 Occurrences starting 08/18/2023 until 08/17/2024 End: 07-30-2023 US LEG ARTERIAL PERIPH UNL [facility] US LEG ARTERIAL PERIPH UNL [facility] Vascular Lab Routine Peripheral arterial disease (HCC) 1 Occurrences starting 07/29/2022 until 07/30/2023 [facility] Work Phone: Comment on above: 1 Occurrences starting 07/29/2022 until 07/30/2023 End: 08-17-2024 US Lower extremity artery - bilateral PVR ANK/JUARES/TOE [facility] Vascular Lab Routine Peripheral arterial disease (HCC) 1 Occurrences starting 08/18/2023 until 08/17/2024 [facility] Comment on above: 1 Occurrences starting 08/18/2023 until 08/17/2024 End: 01-04-2025 US Vein - bilateral US VENOUS INCOMPETENCY [facility] Vascular Lab Routine Skin ulcer, limited to breakdown of skin (HCC) Peripheral arterial disease (HCC) Venous insufficiency 1 Occurrences starting 01/05/2024 until 01/04/2025 [facility] Comment on above: 1 Occurrences starting 01/05/2024 until 01/04/2025 XR Ankle - left AP a nd Lateral and oblique XR ANKLE GENERAL 3V AP/LAT/OBL LEFT Radiology Routine Skin ulcer, limited to breakdown of skin (HCC) 11/23/2023 11:37 AM EDT [facility] Work Phone: End: 12-22-2024 XR Ankle - left AP and Lateral and oblique XR ANKLE GENERAL 3V AP/LAT/OBL LEFT Radiology Routine Skin ulcer, limited to breakdown of skin (HCC) 1 Occurrences starting 11/23/2023 until 12/22/2024 [facility] Work Phone: Comment on above: 1 Occurrences starting 11/23/2023 until 12/22/2024 End: 02-03-2025 XR Ankle - left AP and Lateral and oblique XR ANKLE GENERAL 3V AP/LAT/OBL LEFT Radiology Routine Skin ulcer, limited to breakdown of skin (HCC) Peripheral arterial disease (HCC) Venous insufficiency 1 Occurrences starting 01/05/2024 until 02/03/2025 [facility] Work Phone: Comment on above: 1 Occurrences starting 01/05/2024 until 02/03/2025 XR Ankle - left AP a nd Lateral and oblique XR ANKLE GENERAL 3V AP/LAT/OBL LEFT Radiology Routine Skin ulcer, limited to breakdown of skin (HCC) Peripheral arterial disease (HCC) Venous insufficiency 01/05/2024 2:04 PM EST [facility] XR CHEST PORTABLE XR CHEST MYRNA BLE Imaging Routine Daily until discontinued starting 02/21/2020, 12 completed [facility] [place] [place] Comment on above: Daily until discontinued starting 2019, 12 completed End: 02-27-2023 XR FOOT GENERAL 3V AP/LAT/OBL RIGHT XR FOOT GENERAL 3V AP/LAT/OBL RIGHT Radiology Routine Pressure injury of right heel, unstageable (HCC) 1 Occurrences starting 01/28/2022 until 02/27/2023 [facility] Work Phone: Comment on above: 1 Occurrences starting 01/28/2022 until 02/27/2023 XR FOOT GENERAL 3V AP/LAT/OBL RIGHT XR FOOT GENERAL 3V AP/LAT/OBL RIGHT Radiology Routine Pressure injury of right heel, unstageable (HCC) 01/28/2022 4:14 PM [facility] Work Phone: End: 03-20-2023 XR FOOT GENERAL 3V AP/LAT/OBL RIGHT XR FOOT GENERAL 3V AP/LAT/OBL RIGHT Radiology Routine Peripheral arterial disease (HCC) 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, with fat layer 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) 1 Occurrences starting 02/18/2022 until 03/20/2023 [facility] Work Phone: Comment on above: 1 Occurrences starting 02/18/2022 until 03/20/2023 XR FOOT GENERAL 3V AP/LAT/OBL RIGHT XR FOOT GENERAL 3V AP/LAT/OBL RIGHT Radiology Routine Peripheral arterial disease (HCC) 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, with fat layer 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) 02/18/2022 3:10 PM [facility] Work Phone: End: 04-18-2023 XR FOOT GENERAL 3V AP/LAT/OBL RIGHT XR FOOT GENERAL 3V AP/LAT/OBL RIGHT Radiology Routine 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, with fat layer 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) 1 Occurrences starting 03/19/2022 until 04/18/2023 [facility] Work Phone: Comment on above: 1 Occurrences starting 03/19/2022 until 04/18/2023 XR FOOT GENERAL 3V AP/LAT/OBL RIGHT XR FOOT GENERAL 3V AP/LAT/OBL RIGHT Radiology Routine 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, with fat layer 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) 03/19/2022 2:26 PM [facility] Work Phone: End: 05-16-2023 XR FOOT GENERAL 3V AP/LAT/OBL RIGHT XR FOOT GENERAL 3V AP/LAT/OBL RIGHT Radiology Routine 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, with fat layer 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) 1 Occurrences starting 04/16/2022 until 05/16/2023 [facility] Work Phone: Comment on above: 1 Occurrences starting 04/16/2022 until 05/16/2023 End: 06-26-2023 XR FOOT GENERAL 3V AP/LAT/OBL RIGHT XR FOOT GENERAL 3V AP/LAT/OBL RIGHT Radiology Routine Skin ulcer of right heel with fat layer 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) 1 Occurrences starting 05/27/2022 until 06/26/2023 [facility] Work Phone: Comment on above: 1 Occurrences starting 05/27/2022 until 06/26/2023 XR FOOT GENERAL 3V AP/LAT/OBL RIGHT XR FOOT GENERAL 3V AP/LAT/OBL RIGHT Radiology Routine Skin ulcer of right heel with fat layer 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) 05/27/2022 3:04 PM EDT [facility] Work Phone: [facility] Immunizations Immunization Date Immunization Notes Care Provider Mukund carrion 12-23-2023 COVID-19 vaccine, ag e 12+ yr (PFIZER-BIONTECH COMIRNATY) Twila Weston OIL DELIVERER.MEDICAL DEVICE ASSEMBLER Work Phone: [facility] 12-23-2023 influenza, high dose seasonal, preservative-free Twila Weston OIL DELIVERER.MEDICAL DEVICE ASSEMBLER Work Phone: [facility] 12-23-2023 influenza virus vacc ine, unspecified formulation Kailash Cordova OIL DELIVERER.MEDICAL DEVICE ASSEMBLER Work Phone: [facility] 01-30-2023 respiratory syncytia l virus (RSV) vaccine, bivalent (ABRYSVO) Rosalie Martinez PA-C Work Phone: [facility] 12-19-2022 COVID-19 vaccine, ag e 12+ yr, season (PFIZER-BIONTECH) Mei Cummins MD Work Phone: [facility] 12-19-2022 influenza (HD-IIV4) vaccine, age 65+ yr, high dose, quadrivalent, PF (FLUZONE HIGH-DOSE) Mei Cummins MD Work Phone: [facility] 12-19-2022 influenza virus vacc ine, unspecified formulation Bela Manzano MD Work Phone: [facility] 11-27-2021 Covid Pfizer Bivalen t Booster Dr. Mei Cummins MD Work Phone: [facility] 11-27-2021 Influenza High-Dose Quadrivalent Dr. Mei Cummins MD Work Phone: [facility] 11-27-2021 influenza virus vacc ine, unspecified formulation Mei Cummins MD Work Phone: [facility] 11-19-2021 COVID-19 booster vaccine, age 12+ yr, bivalent (PFIZER-BIONTECH) Juan Carlos Viveros Work Phone: [facility] 11-19-2021 Influenza, high dose seasonal Dr. Mei Cummins MD Work Phone: [facility] 11-19-2021 influenza, high dose seasonal, preservative-free Juan Carlos Felice Work Phone: [facility] 07-26-2021 Covid (Pfizer) Dr. Mei conteh MD Work Phone: [facility] 02-06-2021 COVID-19 vaccine, ag e 12+ yr (PFIZER-BIONTECH - PURPLE TOP) Salazar Masci DO Work Phone: [facility] 11-29-2020 influenza, high-dose , quadrivalent vaccine (FLUZONE HIGH DOSE QUADRIVALENT) Salazar Masci DO Work Phone: [facility] 05-24-2020 COVID-19 vaccine, ag e 12+ yr (PFIZER-BIONTECH - PURPLE TOP) Salazar Masci DO Work Phone: [facility] 05-03-2020 COVID-19 vaccine, ag e 12+ yr (PFIZER-BIONTECH - PURPLE TOP) Salazar Masci DO Work Phone: [facility] 12-03-2019 Influenza, high dose seasonal Dr. Mei Cummins MD Work Phone: [facility] 12-03-2019 influenza, high dose seasonal, preservative-free Dr. Mei Cummins MD Work Phone: [facility] 12-08-2018 Influenza, high dose seasonal Dr. Mei Cummins MD Work Phone: [facility] 12-08-2018 influenza, high dose seasonal, preservative-free Salazar Robbinsi DO Work Phone: [facility] 11-10-2017 Influenza, high dose seasonal Dr. Mei Cummins MD Work Phone: [facility] 11-10-2017 influenza, high dose seasonal, preservative-free Salazar Meraz DO Work Phone: [facility] 11-25-2016 Influenza, high dose seasonal Dr. Mei Cummins MD Work Phone: [facility] 11-25-2016 influenza, high dose seasonal, preservative-free Salazar Itzeli DO Work Phone: [facility] 11-25-2016 pneumococcal conjuga te vaccine, 13 valent Salazar Masci DO Work Phone: [facility] 10-31-2016 influenza, injectabl e, quadrivalent, preservative free Dr. Mei Cummins Work Phone: [facility] 10-31-2016 influenza, seasonal, injectable Dr. Mei Cummins Work Phone: [facility] 12-19-2015 influenza, injectabl e, quadrivalent, preservative free Dr. Mei Cummins MD Work Phone: [facility] 12-19-2015 influenza, seasonal, injectable Salazar tIzeli DO Work Phone: [facility] Work Phone: 11-16-2015 pneumococcal polysaccharide vaccine, 23 valent Salazar Masci DO Work Phone: [facility] Work Phone: Payers Date Payer Category Payer Self-pay [id number] 2023 Unknown [id number] 2016 [facility] [place] D[place] SUPPLE[place] [id number] 2016 Unknown ANTHEM ANTHEM ME DICARE SUPPLEMENT [id number] 2016-Present [phone] [address] [place] [address] Indemnity [id number] [id number]. [id number] 2016 Unknown [id number]. 1.13.159. 2.7.3.676478.315 2016 Unknown [id number] 1.2.840.865704.1.13.239. 2.7.3.566370.315 2007 Medicare MEDICARE MEDICAR E A AND B [id number] 2007-Present [phone] [place] [address] Medicare [id number] 1.2.840.804640.1.13.159. 2.7.3.921933.315 2007 Medicare 1.2.840.102209. 1.13.159. 2.7.3.436248.315 2007 Medicare [id number] 1.2.840.754554.1.13.239. 2.7.3.643579.315 Medicare [id number] Unknown [id number] 2.16840.1.777258.3.579. 2.462 Unknown [id number] 2.16840.1.825033.3.579. 2.462 Unknown [id number] 2.16.840.1.941610.3.579. 2.462 Unknown [id number] 2.16.840.1.774392.3.579. 2.462 Unknown [id number] 2.16.840.1.882798.3.579. 2.462 Unknown [id number] 2.16840.1.559696.3.579. 2.462 Unknown [id number] 2.16.840.1.928764.3.579. 2.462 Unknown [id number] 2.16.840.1.784591.3.579. 2.462 Unknown [id number] 2.16.840.1.807401.3.579. 2.462 Unknown [id number] 2.16.840.1.744935.3.579. 2.462 Unknown [id number] 2.16840.1.474638.3.579. 2.462 Unknown [id number] 2.16.840.1.882071.3.579. 2.462 Unknown [id number] 2.840.1.995459.3.579. 2.462 Unknown [id number] 2.840.1.455954.3.579. 2.462 Unknown [id number] 2.840.1.166660.3.579. 2.462 Unknown [id number] 2.840.1.662857.3.579. 2.462 Unknown [id number] 2.840.1.623642.3.579. 2.462 Unknown [id number] 2.840.1.336322.3.579. 2.462 Unknown [id number] 2.840.1.329615.3.579. 2.462 Unknown [id number] 2.840.1.514329.3.579. 2.462 Unknown [id number] 2.16840.1.731261.3.579. 2.462 Unknown [id number] 2.16840.1.299116.3.579. 2.462 Unknown [id number] 2.16840.1.967151.3.579. 2.462 Unknown [id number] 2.16840.1.005433.3.579. 2.462 Unknown [id number] 2.16840.1.524492.3.579. 2.462 Unknown [id number] 2.16.840.1.718794.3.579. 2.462 Unknown [id number] 2.16.840.1.214575.3.579. 2.462 Unknown [id number] 2.16.840.1.994073.3.579. 2.462 Unknown [id number] 2.16.840.1.241641.3.579. 2.462 Unknown [id number] 2.16.840.1.800035.3.579. 2.462 Unknown [id number] 2.16.840.1.583585.3.579. 2.462 Unknown [id number] 2.840.1.253340.3.579. 2.462 Unknown [id number] 2.840.1.423354.3.579. 2.462 Unknown [id number] 2.840.1.139845.3.579. 2.462 Unknown [id number] 2.840.1.964464.3.579. 2.462 Unknown [id number] 2.840.1.487313.3.579. 2.462 Unknown [id number] 2..840.1.848316.3.579. 2.462 Unknown [id number] 2.16840.1.453982.3.579. 2.462 Unknown [id number] 2.840.1.644203.3.579. 2.462 Unknown [id number] 2..840.1.558395.3.579. 2.462 Unknown [id number] 2.16.840.1.783363.3.579. 2.462 Unknown [id number] 2.16.840.1.834773.3.579. 2.462 Unknown [id number] 2.16.840.1.570234.3.579. 2.462 Unknown [id number] 2.840.1.805874.3.579. 2.462 Unknown [id number] 2.840.1.795504.3.579. 2.462 Unknown [id number] 2.840.1.416577.3.579. 2.462 Unknown [id number] 2.840.1.265700.3.579. 2.462 Unknown [id number] 2.840.1.933427.3.579. 2.462 Unknown [id number] 2.840.1.263708.3.579. 2.462 Unknown [id number] .840.1.335266.3.579. 2.462 Unknown [id number] 2.840.1.241218.3.579. 2.462 Unknown [id number] 2.840.1.483088.3.579. 2.462 Unknown [id number] 2.840.1.732004.3.579. 2.462 Unknown [id number] .840.1.880982.3.579. 2.462 Unknown [id number] .840.1.720527.3.579. 2.462 Unknown [id number] 2.840.1.013061.3.579. 2.462 Unknown [id number] 2.840.1.004847.3.579. 2.462 Unknown [id number] .840.1.560964.3.579. 2.462 Unknown [id number] .840.1.820666.3.579. 2.462 Unknown [id number] .840.1.328119.3.579. 2.462 Unknown [id number] 2.840.1.401327.3.579. 2.462 Unknown [id number] 2.840.1.012245.3.579. 2.462 Unknown [id number] 2.840.1.916793.3.579. 2.462 Unknown [id number] 2.16.840.1.601805.3.579. 2.462 Social History Date Type Detail Facility Start: 02-16-2020 End: 09-17-2024 Tobacco smoking status NHIS Former smoker [facility] Work Phone: Start: 03-02-1962 End: 05-13-2002 History of tobacco use Current smoker [facility] [place] Start: 02-16-2020 End: 10-29-2023 Tobacco use and exposure [facility] [place] [place] Start: 02-16-2020 End: 10-04-2020 Alcohol intake Current drinker of alcohol (finding) [facility] [place] Start: 10-26-2019 End: 02-09-2020 History SDOH Alcohol Frequency 4 [place], [place] Start: 02-16-2020 Alcohol Comment 3 beers a week [place], [place] Start: 1940 Sex Assigned At Not on file [place], [place] Start: 09-03-2020 End: 01-28-2022 Exposure to SARS-CoV-2 (event) Not sure [place], [place] Start: 03-02-1962 End: 05-13-2002 History of tobacco use Cigarette Smoker [facility] Work Phone: Start: 04-29-2021 End: 08-31-2024 Alcohol intake Ex-drinker (finding) [facility] Start: 04-29-2021 End: 07-08-2022 Alcohol intake [facility] Start: 10-28-2019 End: 12-13-2021 History SDOH Alcohol Std Drinks 1 [facility] Start: 11-05-2012 History SDOH Alcohol Comment light beer [facility] Start: 10-26-2019 End: 03-14-2022 History SDOH Social Connections Phone 2 [facility] Start: 10-26-2019 History SDOH Social Connections [facility] Start: 10-26-2019 End: 03-14-2022 History SDOH Social Connections Living 3 [facility] Start: 10-26-2019 End: 03-14-2022 History SDOH Physical Activity DPW 0 [facility] Start: 10-26-2019 History SDOH Financial 5 [facility] Start: 10-26-2019 Education 15 [facility] Start: 08-07-2021 End: 05-28-2023 Tobacco smoking status NHIS Unknown if ever smoked [facility] Start: 07-09-[address] [facility] Start: 07-09-[address] [facility] Start: 03-30-2017 Spouse/ Significant Other [facility] Start: 07-09-[address] [facility] Start: 1940 Sex Assigned At Male [facility] Start: 03-14-2022 End: 07-08-2022 Social connection and isolation panel [facility] Do you belong to any clubs or organizations such as bahai groups, unions, fraternal or athletic groups, or school groups? Yes [facility] Are you now , , , , never or living with a partner? [facility] How often to you hav e a drink containing alcohol? Never [facility] Average Number of Drinks Not on file [facility] Do you feel stress - tense, restless, nervous, or anxious, or unable to sleep at night because your mind is troubled all the time - these days [OSQ] To some extent [facility] (I/We) worried jose er (my/our) food would run out before (I/we) got money to buy more. Never true [facility] In the past 12 month s, was there a time when you were not able to pay the mortgage or rent on time? No [facility] How often to you hav e a drink containing alcohol? 2-3 time sa week [facility] How many standard dr inks containing alcohol do you have on a typical day? 1 or 2 [facility] Do you feel stress - tense, restless, nervous, or anxious, or unable to sleep at night because your mind is troubled all the time - these days [OSQ] Rather much [facility] Start: 03-24-2023 Gender identity Identifies as male gender (finding) [facility] Start: 05-22-2024 End: 06-16-2024 Sex Male (finding) [facility] Medical Equipment Procedure Code Equipment Code [...] Start: 10-07-2023 Colonoscopy FDA Start: 10-07-2023 Colonoscopy CLIP,RESO 360 UL TRA 235_17 FDA Start: 10-07-2023 Colonoscopy CLIP,RESO 360 UL TRA 235_17 FDA Start: 10-07-2023 Colonoscopy CLIP,RESO 360 UL TRA 235_17 FDA Start: 10-07-2023 Colonoscopy FDA Start: 10-07-2023 Colonoscopy FDA Start: 10-07-2023 Colonoscopy FDA Start: 10-07-2023 Fabric Jose R boykin Thk.76mm Collagen 6x2in Cardiovascular 2 Velour Knitted - [id number] Start: 05-13-2022 Stent Absolute P ro 10mm Nitinol 60mm 135cm Biliary Self Expandable - [id number] Start: 05-13-2022 Stent Absolute P ro 10mm Nitinol 60mm 135cm Biliary Self Expandable - [id number] Start: 05-13-2022 Goals Date Patient Goal Desired Activity /State Personal health goal Functional Status Date Assessment Result Facility 06-05-2024 Functional status Chair;Bathroom Privileg e [facility] Work Phone: 05-24-2024 Functional status [facility] Work Phone: 02-22-2024 Functional status Chair [facility] Work Phone: 03-27-2023 Functional status [facility] Work Phone: 03-26-2023 Functional status [facility] Work Phone: 05-16-2022 Are you deaf, or do you have serious difficulty hearing No 05/16/2022 2:05 PM Yue Herrera RN No [facility] 05-16-2022 Are you blind, or do you have serious difficulty seeing, even when wearing glasses No 05/16/2022 2:05 PM Yue Herrera RN No [facility] 05-16-2022 Do you have serious difficulty walking or climbing stairs No 05/16/2022 2:05 PM Yue Herrera RN [facility] 05-16-2022 Do you have difficul ty dressing or bathing No 05/16/2022 2:05 PM Yue Herrera RN No [facility] 05-16-2022 Because of a physica l, mental, or emotional condition, do you have difficulty doing errands alone such as visiting a physician's office or shopping Yes 05/16/2022 2:05 PM Yue Herrera RN Yes [facility] Mental Status Date Assessment Result Facility 06-05-2024 Cognitive function Voice/Name [facility] Work Phone: 05-24-2024 Cognitive function Voice/Name [facility] Work Phone: 02-22-2024 Cognitive function Voice/Name [facility] Work Phone: 03-27-2023 Cognitive function Voice/Name [facility] Work Phone: 03-26-2023 Cognitive function Voice/Name [facility] Work Phone: 11-24-2022 Cognitive function Voice/Name [facility] Work Phone: 05-16-2022 Because of a physica l, mental, or emotional condition, do you have serious difficulty concentrating, remembering, or making decisions Yes 05/16/2022 2:05 PM Yue Herrera RN Yes [facility] Clinical Notes 11-20-2016 to 09-29-2024 Note Date & Type Note Facility 09-29-2024 Progress note Note Date/Time September 29, 2024 2:48pm [facility] [address] [place] [id number] Progress Note - Wound Care 09/29/24 1441 MR#: [id number] Acct: [id number] Name: OSWALDO CORLEY Rep #:[id number] : 1940 84 From: Rasta Boykin PM PCP: Dr. Mei Cummins MD Status:RE G RCR Location: History of Present Illness Date of Service: 09/28/24 Chief Complaint: Left medial ankle and left foot ulcers History of Wound: This is an 84-year-old male with a left medial ankle ulcer that had been seeing Special Events Planner, Dr. Viveros, at the [facility]. The patient has a significant history for COPD, and is on home O2. He also has a history of Prostate CA, Squamous carcinoma of left lung, HTN, anxiety and depression, AAA without rupture, CAD, coronary artery stent placement (multiple), CABG x 3, former smoker, PAD, PBH, and pulmonary embolism-on anticoagulants, and hyperlipidemia. He has had arterial studies in the past andhad some vascular procedures (by Dr. Vigil) to his left leg. He denies a historyof diabetes. His providers are all with [facility]. He has had this left medial ankle ulcer for more than 3 months. He had been placing Santyl covered with [facility]. There had not been much improvement to this area, and he was referred to see us by [facility], and that Dr. Viveros also suggested he get a second opinion. The patient is seen at this time as a courtesy to his regular Wound Center provider, Dr. Rasta Mazariegos, who is unavailable this week. Progress of Wound: Chronic slow healing ulceration appreciated to the medial ankle and dorsal firstmetatarsal phalangeal joint left foot. Subjective Subjective Patient is 84-year-old male presenting with care center follow-up evaluation of full-thickness wound to the dorsal aspect of the big toe joint and medial ankle. Patient is doing dressing changes as discussed. He still admits little to no improvement to the full-thickness wound. His redness and pain is improving withoral antibiotics. He did get his vascular studies completed. He denies trauma. He denies constitutional symptoms. No other pedal complaints at this time. Objective Data Objective Data Vital Signs: Vital Signs Temp Pulse Resp BP O2 Del Method O2 Flow Rate 96.6 F L 69 16 121/56 H Nasal Cannula 4 09/28/24 14:33 09/28/24 14:33 09/28/24 14:33 09/28/24 14:33 09/28/24 14:33 09/28/24 14:33 Oxygen Flow Rate (L/min) 4 Oxygen Delivery Method Nasal Cannula Lab / Micro Data Micro: Microbiology 09/15/24 14:41 Wound - Toe Gram Stain - Final 09/15/24 14:41 Wound - Toe Wound Culture - Final Staphylococcus aureus 09/15/24 14:41 Wound - Toe Anaerobic Culture - Final No anaerobic bacteria isolated. Physical Exam Narrative Vascular: DP and PT pulses are faintly palpable. CFT is brisk. Blanchable erythema to the periwound of the dorsal first metatarsal phalangeal joint left foot. Neurological: Light touch intact. Patient does despond painful stimuli. Dermatological: Full-thickness wound to the left medial ankle measuring 1.0 x 0.9 x 0.3 cm. Full-thickness wound to the dorsal aspect left foot first metatarsal phalangeal joint measuring 0.9 x 1.7 x 0.2 cm periwound erythema which is blanchable. Excisional debridement down to and including subcutaneous tissue, fascia and muscle to the left medial ankle full-thickness wound with a number 3 mm dermal curette and without incident. Predebridement measurement was 0.9 x 0.8 x 0.2 cm. Postdebridement measurement is 1.0 x 0.9 x 0.3 cm. Excisional debridement down to including subcutaneous tissue to left lower extremity first metatarsal phalangeal joint dorsally with a #3 minimally dermal curette done without incident. Predebridement measurement was 0.8 x 1.5 by 0.2 cm. Postdebridement measurement is 0.9 x 1.7 x 0.2 cm. Musculoskeletal: Pain on palpation to the left 1st MPJ full thickness wound. Nopain with calf pressure. Debridement Note Debridement Note Debridement Free Text: Excisional debridement down to and including subcutaneoustissue, fascia and muscle to the left medial ankle full-thickness wound with a number 3 mm dermal curette and without incident. Predebridement measurement was0.9 x 0.8 x 0.2 cm. Postdebridement measurement is 1.0 x 0.9 x 0.3 cm. Excisional debridement down to including subcutaneous tissue to left lower extremity first metatarsal phalangeal joint dorsally with a #3 minimally dermal curette done without incident. Predebridement measurement was 0.8 x 1.5 by 0.2 cm. Postdebridement measurement is 0.9 x 1.7 x 0.2 cm. Post-Debridement Measurements and Additional Note: Post-Debridement Measurements/Treatment FABIAN - Nurse 1 - General Ulcer Assessment Start: 08/31/24 14:38 Freq: Status: Active Protocol: MILENA Activity Type Activity Date Activity User E-sign Co-sign Detail Recorded Client Recorded Date Recorded By Document 07/02/25 14:39 DL [id number] 08/31/24 14:44 DL Document 09/07/24 11:27 KW [id number] 09/07/24 11:35 KW Document 09/14/24 14:49 KW [id number] 09/14/24 14:58 KW Edit Result 09/14/24 14:49 KW (1) [id number] 09/14/24 15:01 KW Document 09/21/24 14:56 ML [id number] 09/21/24 14:59 ML Document 09/28/24 14:33 KW [id number] 09/28/24 14:40 KW (1) Temperature (97.8 F-99.1 F) => 97.2 F L Pulse Rate (60-100) => 73 Blood Pressure (90/60-120/80) => 97/58 L Blood Pressure Mean (mm Hg) => 71 08/31/24 09/07/24 09/14/24 14:39 11:27 14:49 WC - Today's Visit Information Type of service Follow-up Visit Follow-up Visit Follow-up Visit (Physician/MEDICAL DEVICE ASSEMBLER (Physician/MEDICAL DEVICE ASSEMBLER (Physician/MEDICAL DEVICE ASSEMBLER ) ) ) Arrival Mode Wheelchair Wheelchair Wheelchair Transfer Assistance Manual Transfer Assist (Other) x1 Accompanied by Patient Identification Verified (Name & Yes Yes Yes ) Patient Requires Transmission-Based No Precautions Safety Precautions Fall Prevention Height and Weight Weight Measurement Method Vital Signs Temperature (97.8 F-99.1 F) 97 F L 96.7 F L 97.2 F L Temperature Source Temporal Temporal Temporal Pulse Rate (60-100) 79 78 73 Pulse Location Monitor Monitor Monitor Respiratory Rate (12-18) 22 H 18 18 Respiratory rate source Observation Observation Observation Oxygen Delivery Method Nasal Cannula Nasal Cannula O2 L/MIN (L/min) Blood Pressure (90/60-120/80) 129/78 H 121/45 H 97/58 L Blood Pressure Mean (mm Hg) 95 70 71 Source Monitor Monitor Monitor Position Semi-Fowlers Sitting Blood Pressure Location Left Arm Left Arm History Since Last Visit- (Skip if this is Patient's initial visit) Have you changed medications since your No No No last visit? Any new allergies or adverse reactions No No No Had a fall/change in ADL's that may No No No increase risk of falls Signs or symptoms of abuse and/or No No No neglect since last visit Have you been in the hospital since your No No No last visit? Has dressing in place as prescribed Yes Yes Yes Has compression in place as prescribed Yes Yes Yes Has offloadiing in place as prescribed Yes Yes N/A Experienced any changes in pain level or No No No management Left Footwear Surgical Shoe Regular Shoe with pressure relief insole Right Footwear Regular Shoe Regular Shoe Pain Scale: 0-10 Numeric Is Patient Pain Free? Yes Yes Yes 09/21/24 09/28/24 14:56 14:33 WC - Today's Visit Information Type of service Follow-up Visit Follow-up Visit (Physician/MEDICAL DEVICE ASSEMBLER (Physician/MEDICAL DEVICE ASSEMBLER ) ) Arrival Mode Wheelchair Wheelchair Transfer Assistance None Other Transfer Assist (Other) walker Accompanied by Patient Identification Verified (Name & Yes Yes ) Patient Requires Transmission-Based No Precautions Safety Precautions Height and Weight Weight Measurement Method Estimated by Patient Vital Signs Temperature (97.8 F-99.1 F) 97.3 F L 96.6 F L Temperature Source Temporal Temporal Pulse Rate (60-100) 66 69 Pulse Location Monitor Monitor Respiratory Rate (12-18) 20 H 16 Respiratory rate source Observation Observation Oxygen Delivery Method Nasal Cannula O2 L/MIN (L/min) 4 Blood Pressure (90/60-120/80) 113/64 121/56 H Blood Pressure Mean (mm Hg) 80 77 Source Monitor Monitor Position Sitting Semi-Fowlers Blood Pressure Location Left Arm Left Arm History Since Last Visit- [...] Patient Pain Free? Yes Yes - Nurse 1 - General Ulcer Measurement Start: 08/31/24 14:38 Freq: Status: Active Protocol: Activity Type Activity Date Activity User E-sign Co-sign Detail Recorded Client Recorded Date Recorded By Document 08/31/24 14:39 DL [id number] 08/31/24 14:44 DL Document 09/07/24 11:27 KW [id number] 09/07/24 11:35 KW Document 09/14/24 14:49 KW [id number] 09/14/24 14:58 KW Document 09/21/24 14:56 ML [id number] 09/21/24 14:59 ML Document 09/28/24 14:33 KW [id number] 09/28/24 14:40 KW 08/31/24 09/07/24 09/14/24 14:39 11:27 14:49 Wound Center Nurse 1 3-left foot -Combined with other wound -Current Size (cm) - Length 0.8 1.9 0.6 -Current Size (cm) - Width 1.6 0.8 1.8 -Current Size (cm) - Depth 0.2 0.3 0.2 -Total Square Cm 1.28 1.52 1.08 -Date of Last Picture (Recall this 09/14/24 field) -Tunneling -Undermining/Tunneling -Circular Undermining -Exudate Amt Medium Medium Large -Exudate Type Serosanguineous Serosanguineous Serosanguineous -Wound Margin Distinct, Distinct, Thickened & Outline Outline Rolled Under Attached Attached -Granulation Amt None Present (0 Small (1-33%) Medium (34-66%) %) -Granulation Quality [place] Red -Slough/Fibrin -Necrosis Amt Large (67-100%) Large (67-100%) Medium (34-66%) -Necrotic Tissue Type Adherent Slough Adherent Slough Adherent Slough -Structure Exposed N/A -Texture (Bell-wound Skin Appearance) Scarring Assessed, Assessed, Localized Edema Localized Edema -Moisture (Bell-wound Skin Appearance) Dry/Scaly Assessed Assessed -Color (Bell-wound Skin Appearance) Erythema Assessed, Assessed, Erythema Erythema -Temperature (Bell-wound Skin No Abnormality No Abnormality No Abnormality Appearance) (Pt Warm) (Pt Warm) (Pt Warm) -Tenderness on Palpation (Bell-wound No No Skin Appearance) -Ulcer Cleansing Rinsed/ Soap and Water Soap and Water Irrigated with Saline -Foul Odor after Cleansing No No -Anesthetic Used 5% Lidocaine 5% Lidocaine 5% Lidocaine Gel Gel Gel #1- L MEDIAL ANKLE -Combined with other wound -Current Size (cm) - Length 1 0.9 1 -Current Size (cm) - Width 1 0.9 1 -Current Size (cm) - Depth 0.1 0.1 0.3 -Total Square Cm 1 0.81 1 -Date of Last Picture (Recall this 09/07/24 09/14/24 field) -Tunneling -Circular Undermining Yes -Exudate Amt Small Small Large -Exudate Type Serosanguineous Serosanguineous -Wound Margin Distinct, Distinct, Thickened & Outline Outline Rolled Under Attached Attached -Granulation Amt None Present (0 Small (1-33%) %) -Granulation Quality Red -Slough/Fibrin -Necrosis Amt Large (67-100%) Large (67-100%) -Necrotic Tissue Type Eschar Adherent Slough -Structure Exposed N/A -Texture (Bell-wound Skin Appearance) Scarring Assessed Assessed, Localized Edema -Moisture (Bell-wound Skin Appearance) Dry/Scaly Assessed Assessed -Color (Bell-wound Skin Appearance) No Abnormality Assessed Assessed, Erythema -Temperature (Bell-wound Skin No Abnormality No Abnormality No Abnormality Appearance) (Pt Warm) (Pt Warm) (Pt Warm) -Tenderness on Palpation (Bell-wound No No No Skin Appearance) -Ulcer Cleansing Soap and Water Soap and Water -Foul Odor after Cleansing No No No -Anesthetic Used 5% Lidocaine 5% Lidocaine Gel Gel -Wound Comment(s) Epicord intact. left inplace. Left Calf (cm) 27.5 27 Left Ankle (cm) 20.6 21.6 09/21/24 09/28/24 14:56 14:33 Wound Center Nurse 1 3-left foot -Combined with other wound No -Current Size (cm) - Length 1.5 0.8 -Current Size (cm) - Width 1.5 1.6 -Current Size (cm) - Depth 0.2 0.1 -Total Square Cm 2.25 1.28 -Date of Last Picture (Recall this field) -Tunneling No -Undermining/Tunneling No -Circular Undermining No -Exudate Amt Medium Medium -Exudate Type Serosanguineous Serosanguineous -Wound Margin Thickened & Rolled Under -Granulation Amt Medium (34-66%) Medium (34-66%) -Granulation Quality Red -Slough/Fibrin Yes Yes -Necrosis Amt Medium (34-66%) Medium (34-66%) -Necrotic Tissue Type Adherent Slough Adherent Slough -Structure Exposed -Texture (Bell-wound Skin Appearance) Assessed Assessed, Scarring -Moisture (Bell-wound Skin Appearance) Assessed Assessed -Color (Bell-wound Skin Appearance) Assessed Assessed, Erythema -Temperature (Bell-wound Skin No Abnormality No Abnormality Appearance) (Pt Warm) (Pt Warm) -Tenderness on Palpation (Bell-wound Yes No Skin Appearance) -Ulcer Cleansing Rinsed/ Rinsed/ Irrigated with Irrigated with Saline Saline -Foul Odor after Cleansing No No -Anesthetic Used 5% Lidocaine 5% Lidocaine Gel Gel #1- L MEDIAL ANKLE -Combined with other wound No -Current Size (cm) - Length 1 1 -Current Size (cm) - Width 2 1 -Current Size (cm) - Depth 0.2 0.3 -Total Square Cm 2 1 -Date of Last Picture (Recall this field) -Tunneling No -Circular Undermining Yes -Exudate Amt Medium Medium -Exudate Type Serosanguineous Serosanguineous -Wound Margin Distinct, Thickened & Outline Rolled Under Attached -Granulation Amt Medium (34-66%) Medium (34-66%) -Granulation Quality Red -Slough/Fibrin Yes Yes -Necrosis Amt Small (1-33%) Medium (34-66%) -Necrotic Tissue Type Adherent Slough Adherent Slough -Structure Exposed -Texture (Bell-wound Skin Appearance) Assessed Assessed, Scarring -Moisture (Bell-wound Skin Appearance) Assessed Assessed -Color (Bell-wound Skin Appearance) Assessed Assessed, Erythema -Temperature (Bell-wound Skin No Abnormality No Abnormality Appearance) (Pt Warm) (Pt Warm) -Tenderness on Palpation (Bell-wound Yes No Skin Appearance) -Ulcer Cleansing Rinsed/ Rinsed/ Irrigated with Irrigated with Saline Saline -Foul Odor after Cleansing No No -Anesthetic Used 5% Lidocaine 5% Lidocaine Gel Gel -Wound Comment(s) Left Calf (cm) 27 Left Ankle (cm) 21.7 WC - Nurse 2 - General Ulcer CM Notes Start: 08/31/24 14:38 Freq: Status: Active Protocol: Activity Type Activity Date Activity User E-sign Co-sign Detail Recorded Client Recorded Date Recorded By Document 08/31/24 14:49 SONNY [id number] 08/31/24 14:52 Document 09/07/24 11:50 [id number] 09/07/24 12:03 Document 09/14/24 15:09 [id number] 09/14/24 15:11 Document 09/21/24 15:11 [id number] 09/21/24 15:16 Document 09/28/24 15:04 [id number] 09/28/24 15:13 08/31/24 09/07/24 09/14/24 14:49 11:50 15:09 Wound Center Nurse 2 3-left foot -Time 14:49 11:50 15:10 -Correct Patient Yes Yes Yes -Correct Side, Site, Position Yes Yes Yes -Correct Procedure Yes Yes Yes -Procedure Performed Yes Yes Yes -Type of Procedure Debridement Debridement Debridement -Clinical Debridement Subcutaneous Subcutaneous Muscle / Fascia -Tissue Removed Subcutaneous Subcutaneous Muscle -Post Debridement (cm) - Length 0.8 0.7 0.9 -Post Debridement (cm) - Width 1.6 1.5 1.8 -Post Debridement (cm) - Depth 0.1 0.2 0.2 -Total Square (Post) (cm) 1.28 1.05 1.62 -Area of Debridement (cm) - Length 0.8 0.7 0.9 -Area of Debridement (cm) - Width 1.3 4.5 1.8 -Total Square (Area) (cm) 1.04 3.15 1.62 -Tunneling No No No -Undermining/Tunneling No No No -Circular Undermining No No No -Wound/Ulcer Outcome Not Healed Not Healed Not Healed -Ulcer Cleansing Rinsed/ Not Cleansed Rinsed/ Irrigated with Irrigated with Saline Saline -Foul Odor after Cleansing No No No -Bioengineered Tissue No No No -Bleeding Controlled with Pressure Pressure Pressure -Treatment Response Procedure Procedure Procedure Tolerated Well Tolerated Well Tolerated Well -Offloading No No Yes -Type of Offloading Surgical Shoe -Debridement - Subq, 1st 20sq cm Yes No -Debridement - Muscle / Fascia, 1st No 20sq cm #1- L MEDIAL ANKLE -Time 11:54 15:09 -Correct Patient Yes Yes Yes -Correct Side, Site, Position No Yes Yes -Correct Procedure No Yes Yes -Procedure Performed No Yes Yes -Type of Procedure Debridement Debridement -Clinical Debridement Subcutaneous Muscle / Fascia -Tissue Removed Subcutaneous Muscle -Post Debridement (cm) - Length 0.8 1 -Post Debridement (cm) - Width 1.0 1 -Post Debridement (cm) - Depth 0.5 0.3 -Total Square (Post) (cm) 0.80 1 -Area of Debridement (cm) - Length 0.8 1 -Area of Debridement (cm) - Width 1.0 1 -Total Square (Area) (cm) 0.80 1 -Tunneling No No -Undermining/Tunneling No No -Circular Undermining Yes No -Wound/Ulcer Outcome Not Healed Not Healed Not Healed -Ulcer Cleansing Not Cleansed Rinsed/ Irrigated with Saline -Foul Odor after Cleansing No No -Bioengineered Tissue No No -Bleeding Controlled with Pressure Pressure -Treatment Response Procedure Procedure Tolerated Well Tolerated Well -Offloading Yes -Type of Offloading Surgical Shoe -Debridement - Subq, 1st 20sq cm Yes -Debridement - Muscle / Fascia, 1st Yes 20sq cm Pain Scale: 0-10 Numeric Is Patient Pain Free? Yes Yes Yes 09/21/24 09/28/24 15:11 15:04 Wound Center Nurse 2 3-left foot -Time 15:14 15:09 -Correct Patient Yes Yes -Correct Side, Site, Position Yes Yes -Correct Procedure Yes Yes -Procedure Performed Yes Yes -Type of Procedure Debridement Debridement -Clinical Debridement Muscle / Fascia Muscle / Fascia -Tissue Removed Tendon Muscle -Post Debridement (cm) - Length 0.8 0.9 -Post Debridement (cm) - Width 1.1 1.7 -Post Debridement (cm) - Depth 0.2 0.2 -Total Square (Post) (cm) 0.88 1.53 -Area of Debridement (cm) - Length 0.8 0.9 -Area of Debridement (cm) - Width 1.1 1.7 -Total Square (Area) (cm) 0.88 1.53 -Tunneling No No -Undermining/Tunneling No No -Circular Undermining No No -Wound/Ulcer Outcome Not Healed Not Healed -Ulcer Cleansing Rinsed/ Rinsed/ Irrigated with Irrigated with Saline Saline -Foul Odor after Cleansing No No -Bioengineered Tissue No No -Bleeding Controlled with Pressure Pressure -Treatment Response Procedure Procedure Tolerated Well Tolerated Well -Offloading No No -Type of Offloading -Debridement - Subq, 1st 20sq cm No -Debridement - Muscle / Fascia, 1st No Yes 20sq cm #1- L MEDIAL ANKLE -Time 15:13 15:08 -Correct Patient Yes Yes -Correct Side, Site, Position Yes Yes -Correct Procedure Yes Yes -Procedure Performed Yes Yes -Type of Procedure Debridement Debridement -Clinical Debridement Muscle / Fascia Muscle / Fascia -Tissue Removed Muscle Muscle -Post Debridement (cm) - Length 0.9 1.0 -Post Debridement (cm) - Width 1.0 0.9 -Post Debridement (cm) - Depth 0.3 0.3 -Total Square (Post) (cm) 0.90 0.90 -Area of Debridement (cm) - Length 0.9 1.0 -Area of Debridement (cm) - Width 1.0 0.9 -Total Square (Area) (cm) 0.90 0.90 -Tunneling No No -Undermining/Tunneling No No -Circular Undermining No No -Wound/Ulcer Outcome Not Healed Not Healed -Ulcer Cleansing Rinsed/ Rinsed/ Irrigated with Irrigated with Saline Saline -Foul Odor after Cleansing No No -Bioengineered Tissue No No -Bleeding Controlled with Pressure Pressure -Treatment Response Procedure Procedure Tolerated Well Tolerated Well -Offloading No No -Type of Offloading -Debridement - Subq, 1st 20sq cm -Debridement - Muscle / Fascia, 1st Yes No 20sq cm Pain Scale: 0-10 Numeric Is Patient Pain Free? Yes Yes WC - Nurse 3 - General Ulcer D/C NN Start: 08/31/24 14:38 Freq: Status: Active Protocol: Activity Type Activity Date Activity User E-sign Co-sign Detail Recorded Client Recorded Date Recorded By Document 08/31/24 15:05 [facility] [id number] 08/31/24 15:07 [facility] Document 09/07/24 12:14 [id number] 09/07/24 12:16 Document 09/21/24 15:37 DL [id number] 09/21/24 15:38 DL Document 09/28/24 15:18 KW [id number] 09/28/24 15:18 KW 08/31/24 09/07/24 09/21/24 15:05 12:14 15:37 Wound Care Center Nurse 3 3-left foot -Ulcer Cleansing Rinsed/ Not Cleansed Rinsed/ Irrigated with Irrigated with Saline Saline -Foul Odor after Cleansing No No No -Primary Dressing Applied AMD Dressing Promogran AMD Dressing 4x4 Tray Matter 4x4 -Other Dressing drsg per dl mill work -Primary Dressing Covered/Secured with Dry Gauze & Dry Gauze & Dry Gauze,Dry Roll Gauze, Roll Gauze, Gauze & Roll Secured with Secured with Gauze Tape Tape -Other Covering atb oint -AMD Dressing 4x4 1 1 -Promogran Tray Matter 1 #1- L MEDIAL ANKLE -Ulcer Cleansing Not Cleansed Rinsed/ Irrigated with Saline -Foul Odor after Cleansing No No -Other Dressing epicord AMD Foam -Primary Dressing Covered/Secured with Dry Gauze & Dry Gauze & Roll Gauze, Roll Gauze, Secured with Secured with Tape Tape -Other Covering drsg per dl mill work used remainder of tray LLE -Lotion applied to leg before No compression wrap -Tubular Bandage Single Layer Single Layer Single Layer -Size of Tubigrip Used Size E Size D Size E -Size D ($) 1 -Size E ($) 1 1 -Other applied per dl mill work Treatment Response Procedure Procedure Tolerated Well Tolerated Well Pain Scale: 0-10 Numeric Is Patient Pain Free? Yes Yes Yes WC - Visit Discharge Discharge Condition Stable Stable Stable Ambulatory Status Wheelchair Walker Ambulatory Transportation Private Auto Ambulance Private Auto Accompanied by Medication Reconcilliation completed & provided to patient/care provider Clinical Summary of Care Provided 09/28/24 15:18 Wound Care Center Nurse 3 3-left foot -Ulcer Cleansing -Foul Odor after Cleansing -Primary Dressing Applied -Other Dressing betadine gauze -Primary Dressing Covered/Secured with Dry Gauze & Roll Gauze, Secured with Tape -Other Covering -AMD Dressing 4x4 -Promogran Tray Matter #1- L MEDIAL ANKLE -Ulcer Cleansing -Foul Odor after Cleansing -Other Dressing betadine gauze -Primary Dressing Covered/Secured with Dry Gauze & Roll Gauze, Secured with Tape -Other Covering LLE -Lotion applied to leg before compression wrap -Tubular Bandage Single Layer -Size of Tubigrip Used Size E -Size D ($) -Size E ($) 1 -Other Treatment Response Pain Scale: 0-10 Numeric Is Patient Pain Free? Yes WC - Visit Discharge Discharge Condition Stable Ambulatory Status Wheelchair Transportation Private Auto Accompanied by Medication Reconcilliation completed & No provided to [...] the patient's satisfaction. Excisional debridement down to and including subcutaneous tissue, fascia and muscle to the left medial ankle full-thickness wound with a number 3 mm dermal curette and without incident. Predebridement measurement was 0.9 x 0.8 x 0.2 cm. Postdebridement measurement is 1.0 x 0.9 x 0.3 cm. Excisional debridement down to including subcutaneous tissue to left lower extremity first metatarsal phalangeal joint dorsally with a #3 minimally dermal curette done without incident. Predebridement measurement was 0.8 x 1.5 by 0.2 cm. Postdebridement measurement is 0.9 x 1.7 x 0.2 cm. The areas were dressed with Betadine paint dry sterile dressing and light compression wrap. Patient will continue dressing changes daily as discussed. After review of the patient's arterial studies that shows evidence of severe arterial occlusive disease. I did recommend to the patient that he will be referred to Dr. Allen for evaluation and possible treatment. I did also discussed that there are other options in the [facility] such as [facility] for intervention if he is also interested. Patient did express that hesaw Dr. Williamson for his heart and is aware that he does do lower extremity endovascular intervention. Gave the option to the patient but we will move forward with referral to Dr. Allen and allow Dr. Allen to send the patient to [facility] as needed. The patient will follow-up with with Dr. Blunt in 1 week [address] then [address] Dr. Mazariegos in 1 week. (2) Non-pressure chronic ulcer of other part of left foot with fat layer exposed: CODE(S): L97.522 - Non-pressure chronic ulcer of other part of left foot with fat layer exposed (3) Other specified peripheral vascular diseases: CODE(S): I73.89 - Other specified peripheral vascular diseases 09/29/24 6005 <Electronically signed by Rasta Mazariegos DPM> Cosigner Signature (if applicable): CC: ~ Signed [facility] Work Phone: [phone] [facility] [address] [place] [address] OFFICE VISIT Date of Service: 09/29/24 MR#: [id number] Acct: [id number] Name: OSWALDO CORLEY Rep #: [id number] : 1940 Provider: JAYY Otero Age/Sex: 84/M Location: [facility] Status: Signed Intake Vital Signs 09/17/24 10:50 Height 5 ft 11 in Intake Visit Reasons: ER FU Chief Complaint: anemia Accompanied by: Allergies isosorbide (From Imdur) Allergy (Verified 09/17/24 10:53) Other-patient blacks out Medications ?Medication ?Instructions ?Recorded ?Confirmed ?Type nitroglycerin 0.4 mg sublingual 0.4 mg sublingual Q5M PRN Chest 12/29/14 06/03/24 History tablet Pain fluticasone propionate 230 2 puff inhalation BID breat nicho 08/07/22 06/03/24 History mcg-salmeterol 21 mcg/actuation HFA inhaler (Advair HFA) atorvastatin 40 mg tablet 40 mg PO QHS cholesterol 06/03/24 History duloxetine 30 mg capsule,delayed 30 mg PO QPM DEPRESSI ON 03/25/23 06/03/24 History release tamsulosin 0.4 mg capsule 0.4 mg PO QPM BLADDER/ PROST ATE 03/25/23 06/03/24 History tiotropium bromide 2.5 2 puff inhalation DAILY copd 03/25/23 06/03/24 History mcg/actuation mist for inhalation (Spiriva Respimat) ezetimibe 10 mg tablet 10 mg PO DAILY cholesterol 0 09/28/23 06/03/24 History albuterol sulfate 90 mcg/actuation 2 puff inhalation Q 4H PRN wheezing 02/19/24 06/03/24 History aerosol inhaler aspirin 81 mg tablet,delayed 81 mg PO DAILY heart 01/3106/03/24 History release (Enteric Coated Aspirin) oxycodone 5 mg tablet 5 mg PO Q4H PRN chronic pain 02/21/24 06/03/24 History ondansetron 4 mg disintegrating 4 mg PO DAILY PRN naus ea and 03/30/24 09/29/24 History tablet vomiting roflumilast 500 mcg tablet 500 mcg PO DAILY 03/30/24 0 06/03/24 History collagenase clostridium histo. 250 1 applic topical DA SHELIA 05/22/24 06/03/24 History unit/gram topical ointment (Santyl) guaifenesin 600 mg tablet, 1,200 mg PO BID PRN cough 0 05/22/24 06/03/24 History extended release 12 hr (Mucinex) metoprolol tartrate 50 mg tablet 50 mg PO BID #60 tabs 05/24/24 06/03/24 Rx furosemide 20 mg tablet (Lasix) 20 mg PO DAILY PRN chris ght gain 30 06/05/24 06/03/24 Rx days #0 tabs lorazepam 1 mg tablet 1 mg PO TID PRN anxiety 30 d ays #0 06/05/24 06/03/24 Rx tabs sulfamethoxazole 800 1 tab PO BID 2 weeks #28 tab s 06/15/24 Rx mg-trimethoprim 160 mg tablet (Bactrim DS) doxycycline hyclate 100 mg capsule 100 mg PO BID 2 wee ks #28 caps 09/20/24 Rx Have you fallen in the past year?: Yes Nurse's Note: OV 09/29/24 Pt here for a f/u from ER. Pt reports he is feeling good since he was in the ER. Reports mild constipation, nausea, gas and bloating. Pt reports he is having a formed bm every two days,using Miralax and ex lax for constipation. Denies bloody stools. [facility] Medical History Chronic respiratory failure with hypoxia [...] artery disease) HLD (hyperlipidemia) Benign essential HTN Surgical History Hx of pneumonectomy Hx of CABG Hx of CABG Hx of heart artery stent Hx of transurethral resection of prostate Family History Mother Cancer Father Heart disease COPD (chronic obstructive pulmonary disease) Social History household members: spouse Smoking Status: Former smoker Tobacco: How many years used: 45 Electronic Cigarette Use: not used how long ago did patient quit smokin, second hand exposure: Yes alcohol intake: never substance use type: does not use HPI HPI Chief Complaint: anemia Details: OSWALDO CORLEY, is a 84 M who presents to the office today for f/u. Patient was hospitalized from 09.28.23-09.30.23 and 8.07.23-10.17.23 for acute respiratory failure and gastrointestinal hemorrhage. He had both upper and lowerscopes twice since August 2023 EGD 09.29.23; - Esophageal plaques were found, consistent with candidiasis. Biopsied. - No gross lesions in the entire stomach. - Two bleeding angiodysplastic lesions in the duodenum. Treated with a heater probe. Colonoscopy 09.29.23; - Preparation of the colon was fair. - Multiple bleeding colonic angiodysplastic lesions. Treated with argon plasma coagulation (APC). - Internal hemorrhoids. - Diverticulosis in the recto-sigmoid colon, in the sigmoid colon and in the descending colon. - Stool in the rectum, in the recto-sigmoid colon, in the sigmoid colon and in the cecum. - One 8 mm polyp in the sigmoid colon, removed with a hot snare. Resected and retrieved. - One 7 mm polyp in the cecum, removed with a cold snare. Resected and retrieved. - One 12 mm polyp in the cecum, removed with a hot snare. Resected and retrieved EGD 10.07.23; - Normal esophagus. - Small hiatal hernia. - No gross lesions in the fourth portion of the duodenum. - No specimens collected. Colonoscopy 8.7.24 - Normal esophagus. - Small hiatal hernia. - No gross lesions in the fourth portion of the duodenum. - No specimens collected. Last OV 02.11.24 Pt continues with difficulty swallowing. Having food stuck in his esophagus 1-2 times per week with need to regurgitate it. [facility] admission 4.4.25-4.6.35 with ABLA after four episodes of BRBPR. EGD - Normal esophagus. - No gross lesions in the entire stomach. 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 Treated with a heater probe. - One bleeding angiodysplastic lesion in the jejunum. Treated with a heater probe. - No specimens collected OV 4.9.25 Pt here today for hospital f/u. Pt feeling better however he has only had one BM since being home and he notes that it was dark almost black. He is no longer on his Eliquis 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 moderate to severe enteritis in the terminal ileum. Recommend IBD sgi and MR enterography OV 5.. Pt doing well since last visit. He has had no further black stools. Heis doing iron infusions. He is here today to review results of capsule endoscopy. [facility] 09.17.24 for rectal bleeding. Hgb stable and discharged OV 7. patient doing well since ED visit. He has had no further rectal bleeding. He endorses some mild constipation following his ED visit however this has resolved after daily MiraLAX and 2 doses of Ex-Lax. Patient did have to stop his oral iron while being on doxycycline but he plans to restart once finished. He denies abdominal pain heartburn, diarrhea, black or tarry stool, and nausea vomiting. ROS Const Constitutional: Positive for fatigue, headache(s), weakness and weight change; No fever(s) ENT ENT: Positive for headache(s); No difficulty swallowing Gastro GI: Positive for change in bowel habits, constipation, heartburn and nausea/dyspepsia; No abdominal pain, belching, bloating, change in stool character, coffee ground emesis, cramping, diarrhea, difficulty swallowing, feeling full early, excessiveflatus, incontinent of stools, Vomitingblood/hematemesis, Blood in stool, loosestools, Black,tarry stools, pain with swallowing, vomiting or other Musc Musculoskeletal: Positive for abnormal gait, muscle cramps, muscle weakness, numbness, stiffness, tingling and Arthritis; No joint pain Skin Skin: Positive for dry skin and itchy eyes; No yellowing of the eye Neuro Neurology: Positive for abnormal gait, weakness, headache(s), numbness and tingling Psych Psychiatric: Positive for anxiety and Positive for depression Endo Endocrine: Positive for fatigue and weight change Aller/Imm Allergy/Immunologic: Positive for itchy eyes Joshua/Lymp Hematologic/Lymphatic: Positive for easy bleeding and easy bruising Exam Const General: cooperative, healthy appearing and comfortable Orientation: alert HENMT Head: normal to inspection Eyes General: appearance normal, both eyes and all related structures Neck Neck: normal visual inspection Chest Chest palpation & inspection: normal inspection of the chest Resp Effort & Inspection: normal respiratory effort Cardio Rate: regular rate Rhythm: regular rhythm GI Inspection: normal to inspection Auscultation: normal bowel sounds Palpation: soft and nontender Assessment and Plan Assessment and Plan (1) Angiodysplasia of gastrointestinal tract: Status: Acute Plan: James is an 84-year-old male patient here today for ED follow-up. Patient has a past medical historyof GI bleeding and has required hospital admission in the past. Patient presented to the ED on 2024 with reports of dark red blood per rectum. He notes he had 3 bowel movements with blood. In the ED his hemoglobin was stable. He was discharged with GI follow-up. Today patient reports no further GI bleeding and he feels well. Patient has been off his ironwhile taking doxycycline. He will restart this once he is done with the antibiotic. He denies new lightheadedness, dizziness, or shortness of breath. will repeat CBC to monitor his hemoglobin. Pending results will consider further workup. -CBC -Consider repeat endoscopy -f/u (2) Anemia: Status: Acute Qualifiers: Anemia type: unspecified type Qualified Code(s): D64.9 - Anemia, unspecified Coding Level of Care Code Off vis,est,level 3 Diagnoses Angiodysplasia of gastrointestinal tract K55.20 Anemia, unspecified type D64.9 Anemia type: unspecified type Clinical Quality Measures Falls Risk Screening/Assistive Devices Have you fallen in the past year?: Yes 09/29/24 1408 sov JAYY> Date _ Sosa [facility]OPE Cosigner Signature: Date (if applicable) CC: ~ [facility]07-31-2025 Progress note Author Sosa Silva [facility] Services Note Date/Time September 29, 2024 2:08 pm [facility] [address] [place] [address] OFFICE VISIT Date of Service: 09/29/24 MR#: [id number] Acct: [id number] Name: OSWALDO CORLEY Rep #: [id number] : 1940 Provider: JAYY Otero Age/Sex: 84/M Location: [facility] Status: Signed Intake Vital Signs 09/17/24 10:50 Height 5 ft 11 in Intake Visit Reasons: ER FU Chief Complaint: anemia Accompanied by: Allergies isosorbide (From Imdur) Allergy (Verified 09/17/24 10:53) Other-patient blacks out Medications ?Medication ?Instructions ?Recorded ?Confirmed ?Type nitroglycerin 0.4 mg sublingual 0.4 mg sublingual Q5M PRN Chest 12/29/14 06/03/24 History tablet Pain fluticasone propionate 230 2 puff inhalation BID breat nicho 08/07/22 06/03/24 History mcg-salmeterol 21 mcg/actuation HFA inhaler (Advair HFA) atorvastatin 40 mg tablet 40 mg PO QHS cholesterol 06/03/24 History duloxetine 30 mg capsule,delayed 30 mg PO QPM DEPRESSI ON 03/25/23 06/03/24 History release tamsulosin 0.4 mg capsule 0.4 mg PO QPM BLADDER/ PROST ATE 03/25/23 06/03/24 History tiotropium bromide 2.5 2 puff inhalation DAILY copd 03/25/23 06/03/24 History mcg/actuation mist for inhalation (Spiriva Respimat) ezetimibe 10 mg tablet 10 mg PO DAILY cholesterol 0 09/28/23 06/03/24 History albuterol sulfate 90 mcg/actuation 2 puff inhalation Q 4H PRN wheezing 02/19/24 06/03/24 History aerosol inhaler aspirin 81 mg tablet,delayed 81 mg PO DAILY heart 01/3106/03/24 History release (Enteric Coated Aspirin) oxycodone 5 mg tablet 5 mg PO Q4H PRN chronic pain 02/21/24 06/03/24 History ondansetron 4 mg disintegrating 4 mg PO DAILY PRN naus ea and 03/30/24 09/29/24 History tablet vomiting roflumilast 500 mcg tablet 500 mcg PO DAILY 03/30/24 0 06/03/24 History collagenase clostridium histo. 250 1 applic topical DA SHELIA 05/22/24 06/03/24 History unit/gram topical ointment (Santyl) guaifenesin 600 mg tablet, 1,200 mg PO BID PRN cough 0 05/22/24 06/03/24 History extended release 12 hr (Mucinex) metoprolol tartrate 50 mg tablet 50 mg PO BID #60 tabs 05/24/24 06/03/24 Rx furosemide 20 mg tablet (Lasix) 20 mg PO DAILY PRN chris ght gain 30 06/05/24 06/03/24 Rx days #0 tabs lorazepam 1 mg tablet 1 mg PO TID PRN anxiety 30 d ays #0 06/05/24 06/03/24 Rx tabs sulfamethoxazole 800 1 tab PO BID 2 weeks #28 tab s 06/15/24 Rx mg-trimethoprim 160 mg tablet (Bactrim DS) doxycycline hyclate 100 mg capsule 100 mg PO BID 2 wee ks #28 caps 09/20/24 Rx Have you fallen in the past year?: Yes Nurse's Note: OV 09/29/24 Pt here for a f/u from ER. Pt reports he is feeling good since he was in the ER. Reports mild constipation, nausea, gas and bloating. Pt reports he is having a formed bm every two days, using Miralax and ex lax for constipation. Denies bloody stools. [facility] Medical History Chronic respiratory failure with hypoxia [...] artery disease) HLD (hyperlipidemia) Benign essential HTN Surgical History Hx of pneumonectomy Hx of CABG Hx of CABG Hx of heart artery stent Hx of transurethral resection of prostate Family History Mother Cancer Father Heart disease COPD (chronic obstructive pulmonary disease) Social History household members: spouse Smoking Status: Former smoker Tobacco: How many years used: 45 Electronic Cigarette Use: not used how long ago did patient quit smokin, second hand exposure: Yes alcohol intake: never substance use type: does not use HPI HPI Chief Complaint: anemia Details: OSWALDO CORLEY, is a 84 M who presents to the office today for f/u. Patient was hospitalized from 09.28.23-09.30.23 and 8.07.23-8 for acute respiratory failure and gastrointestinal hemorrhage. He had both upper and lowerscopes twice since August 2023 EGD 09.29.23; - Esophageal plaques were found, consistent with candidiasis. Biopsied. - No gross lesions in the entire stomach. - Two bleeding angiodysplastic lesions in the duodenum. Treated with a heater probe. Colonoscopy 09.29.23; - Preparation of the colon was fair. - Multiple bleeding colonic angiodysplastic lesions. Treated with argon plasma coagulation (APC). - Internal hemorrhoids. - Diverticulosis in the recto-sigmoid colon, in the sigmoid colon and in the descending colon. - Stool in the rectum, in the recto-sigmoid colon, in the sigmoid colon and in the cecum. - One 8 mm polyp in the sigmoid colon, removed with a hot snare. Resected and retrieved. - One 7 mm polyp in the cecum, removed with a cold snare. Resected and retrieved. - One 12 mm polyp in the cecum, removed with a hot snare. Resected and retrieved EGD 8.09.22; - Normal esophagus. - Small hiatal hernia. - No gross lesions in the fourth portion of the duodenum. - No specimens collected. Colonoscopy 10.07.23 - Normal esophagus. - Small hiatal hernia. - No gross lesions in the fourth portion of the duodenum. - No specimens collected. Last OV 02.11.24 Pt continues with difficulty swallowing. Having food stuck in his esophagus 1-2 times per week with need to regurgitate it. [facility] admission 4..25-4.6.35 with ABLA after four episodes of BRBPR. EGD - Normal esophagus. - No gross lesions in the entire stomach. 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 Treated with a heater probe. - One bleeding angiodysplastic lesion in the jejunum. Treated with a heater probe. - No specimens collected OV 425 Pt here today for hospital f/u. Pt feeling better however he has only had one BM since being home and he notes that it was dark almost black. He is no longer on his Eliquis and prednisone as 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 moderate to severe enteritis in the terminal ileum. Recommend IBD sgi and MR enterography OV 5..25 Pt doing well since last visit. He has had no further black stools. Heis doing iron infusions. He is here today to review results of capsule endoscopy. [facility] 7. for rectal bleeding. Hgb stable and discharged OV 7.25 patient doing well since ED visit. He has had no further rectal bleeding. He endorses some mild constipation following his ED visit however this has resolved after daily MiraLAX and 2 doses of Ex-Lax. Patient did have to stop his oral iron while being on doxycycline but he plans to restart once finished. He denies abdominal pain heartburn, diarrhea, black or tarry stool, and nausea vomiting. ROS Const Constitutional: Positive for fatigue, headache(s), weakness and weight change; No fever(s) ENT ENT: Positive for headache(s); No difficulty swallowing Gastro GI: Positive for change in bowel habits, constipation, heartburn and nausea/dyspepsia; No abdominal pain, belching, bloating, change in stool character, coffee ground emesis, cramping, diarrhea, difficulty swallowing, feeling full early, excessiveflatus, incontinent of stools, Vomiting blood/hematemesis, Blood in stool, loosestools, Black,tarry stools, pain with swallowing, vomiting or other Musc Musculoskeletal: Positive for abnormal gait, muscle cramps, muscle weakness, numbness, stiffness, tingling and Arthritis; No joint pain Skin Skin: Positive for dry skin and itchy eyes; No yellowing of the eye Neuro Neurology: Positive for abnormal gait, weakness, headache(s), numbness and tingling Psych Psychiatric: Positive for anxiety and Positive for depression Endo Endocrine: Positive for fatigue and weight change Aller/Imm Allergy/Immunologic: Positive for itchy eyes Joshua/Lymp Hematologic/Lymphatic: Positive for easy bleeding and easy bruising Exam Const General: cooperative, healthy appearing and comfortable Orientation: alert HENMT Head: normal to inspection Eyes General: appearance normal, both eyes and all related structures Neck Neck: normal visual inspection Chest Chest palpation & inspection: normal inspection of the chest Resp Effort & Inspection: normal respiratory effort Cardio Rate: regular rate Rhythm: regular rhythm GI Inspection: normal to inspection Auscultation: normal bowel sounds Palpation: soft and nontender Assessment and Plan Assessment and Plan (1) Angiodysplasia of gastrointestinal tract: Status: Acute Plan: James is an 84-year-old male patient here today for ED follow-up. Patient has a past medical history of GI bleeding and has required hospital admission in the past. Patient presented to the ED on September 17, 2024 with reports of dark red blood per rectum. He notes he had 3 bowel movements with blood. In the ED his hemoglobin was stable. He was discharged with GI follow-up. Today patient reports no further GI bleeding and he feels well. Patient has been off his ironwhile taking doxycycline. He will restart this once he is done with the antibiotic. He denies new lightheadedness, dizziness, or shortness of breath. will repeat CBC to monitor his hemoglobin. Pending results will consider further workup. -CBC -Consider repeat endoscopy -f/u (2) Anemia: Status: Acute Qualifiers: Anemia type: unspecified type Qualified Code(s): D64.9 - Anemia, unspecified Coding Level of Care Code Off vis,est,level 3 Diagnoses Angiodysplasia of gastrointestinal tract K55.20 Anemia, unspecified type D64.9 Anemia type: unspecified type Clinical Quality Measures Falls Risk Screening/Assistive Devices Have you fallen in the past year?: Yes 09/29/24 1408 <Electronically signed by Sosa HOPE> Date _ Sosa HOPE Cosigner Signature: Date (if applicable) CC: ~ [employer] Work Phone: [phone] 192-620607-23-2025 Progress note Author Rasta Mazariegos [facility] Note Date/Time September 21, 2024 4:55 pm [facility] [address] [place] [address] Progress Note - Wound Care 09/21/24 1652 MR#: [id number] Acct: [id number] Name: OSWALDO CORLEY Rep #:[id number] : 1940 84 From: Rasta Boykin PM PCP: Dr. Mei Cummins MD Status:RE G R Location: History of Present Illness Date of Service: 09/21/24 Chief Complaint: Left medial ankle and left foot ulcers History of Wound: This is an 84-year-old male with a left medial ankle ulcer that had been seeing Special Events Planner, Dr. Viveros, at the [facility]. The patient has a significant history for COPD, and is on home O2. He also has a history of Prostate CA, Squamous carcinoma of left lung, HTN, anxiety and depression, AAA without rupture, CAD, coronary artery stent placement (multiple), CABG x 3, former smoker, PAD, PBH, and pulmonary embolism-on anticoagulants, and hyperlipidemia. He has had arterial studies in the past andhad some vascular procedures (by Dr. Vigil) to his left leg. He denies a historyof diabetes. His providers are all with [facility]. He has had this left medial ankle ulcer for more than 3 months. He had been placing Santyl covered with [facility]. There had not been much improvement to this area, and he was referred to see us by [facility], and that Dr. Viveros also suggested he get a second opinion. The patient is seen at this time as a courtesy to his regular Wound Center provider, Dr. Rasta Mazariegos, who is unavailable this week. Progress of Wound: Chronic slow healing ulceration appreciated to the medial ankle and dorsal firstmetatarsal phalangeal joint left foot. Subjective Subjective Patient is a 84-year-old male presenting to clinic today for follow-up evaluation of left foot full-thickness wound to the ankle and big toe joint. Patient has been doing dressing changes as discussed. He admits to some improvement but still has some pain to the big toe joint full-thickness wound tothe left lower extremity. Patient is grateful for his care. Denies trauma. Denies constitutional symptoms. No other pedal complaints at this time. Objective Data Objective Data Vital Signs: Vital Signs Temp Pulse Resp BP O2 Del Method 97.3 F L 66 20 H 113/64 Nasal Cannula 09/21/24 14:56 09/21/24 14:56 09/21/24 14:56 09/21/24 14:56 09/14/24 14:49 Oxygen Delivery Method Nasal Cannula Lab / Micro Data Micro: Microbiology 09/15/24 14:41 Wound - Toe Gram Stain - Final 09/15/24 14:41 Wound - Toe Wound Culture - Final Staphylococcus aureus 09/15/24 14:41 Wound - Toe Anaerobic Culture - Final No anaerobic bacteria isolated. Physical Exam Narrative Vascular: DP and PT pulses are faintly palpable. CFT is brisk. Blanchable erythema to the periwound of the dorsal first metatarsal phalangeal joint left foot. Neurological: Light touch intact. Patient does despond painful stimuli. Dermatological: Full-thickness wound to the left medial ankle measuring 0.9 x 1.0 x 0.3 cm negative probe to bone. Full-thickness wound to the dorsal aspect left foot first metatarsal phalangeal joint measuring 0.8 x 1.1 x 0.2 cm. Periwound erythema which is blanchable. Excisional debridement down to and including subcutaneous tissue, fascia and muscle to the left medial ankle full-thickness wound with a number 3 mm dermal curette and without incident. Predebridement measurement was 0.8 x 0.9 x 0.1 cm. Postdebridement measurement is 0.9 x 1.0 x 0.3 cm. Excisional debridement down to including subcutaneous tissue to left lower extremity first metatarsal phalangeal joint dorsally with a #3 minimally dermal curette done without incident. Predebridement measurement was 0.7 x 1.0 x 0.1 cm. Postdebridement measurement is 0.8 x 1.1 x 0.2 cm. Musculoskeletal: Pain on palpation to the left 1st MPJ full thickness wound. Nopain with calf pressure. Debridement Note Debridement Note Debridement Free Text: Excisional debridement down to and including subcutaneoustissue, fascia and muscle to the left medial ankle full-thickness wound with a number 3 mm dermal curette and without incident. Predebridement measurement was0.8 x 0.9 x 0.1 cm. Postdebridement measurement is 0.9 x 1.0 x 0.3 cm. Excisional debridement down to including subcutaneous tissue to left lower extremity first metatarsal phalangeal joint dorsally with a #3 minimally dermal curette done without incident. Predebridement measurement was 0.7 x 1.0 x 0.1 cm. Postdebridement measurement is 0.8 x 1.1 x 0.2 cm. Post-Debridement Measurements and Additional Note: Post-Debridement Measurements/Treatment WC - Nurse 1 - General Ulcer Assessment Start: 08/31/24 14:38 Freq: Status: Active Protocol: LOWEXT Activity Type Activity Date Activity User E-sign Co-sign Detail Recorded Client Recorded Date Recorded By Document 08/31/24 14:39 DL [id number] 08/31/24 14:44 DL Document 09/07/24 11:27 KW [id number] 09/07/24 11:35 KW Document 09/14/24 14:49 KW [id number] 09/14/24 14:58 KW Edit Result 09/14/24 14:49 KW (1) [id number] 09/14/24 15:01 KW Document 09/21/24 14:56 ML [id number] 09/21/24 14:59 ML (1) Temperature (97.8 F-99.1 F) => 97.2 F L Pulse Rate (60-100) => 73 Blood Pressure (90/60-120/80) => 97/58 L Blood Pressure Mean (mm Hg) => 71 08/31/24 09/07/24 09/14/24 14:39 11:27 14:49 WC - Today's Visit Information Type of service Follow-up Visit Follow-up Visit Follow-up Visit (Physician/MEDICAL DEVICE ASSEMBLER (Physician/MEDICAL DEVICE ASSEMBLER (Physician/MEDICAL DEVICE ASSEMBLER ) ) ) Arrival Mode Wheelchair Wheelchair Wheelchair Transfer Assistance Manual Transfer Assist (Other) x1 Accompanied by Patient Identification Verified (Name & Yes Yes Yes ) Patient Requires Transmission-Based No Precautions Safety Precautions Fall Prevention Vital Signs Temperature (97.8 F-99.1 F) 97 F L 96.7 F L 97.2 F L Temperature Source Temporal Temporal Temporal Pulse Rate (60-100) 79 78 73 Pulse Location Monitor Monitor Monitor Respiratory Rate (12-18) 22 H 18 18 Respiratory rate source Observation Observation Observation Oxygen Delivery Method Nasal Cannula Nasal Cannula Blood Pressure (90/60-120/80) 129/78 H 121/45 H 97/58 L Blood Pressure Mean (mm Hg) 95 70 71 Source Monitor Monitor Monitor Position Semi-Fowlers Sitting Blood Pressure Location Left Arm Left Arm History Since Last Visit- (Skip if this is Patient's initial visit) Have you changed medications since your No No No last visit? Any new allergies or adverse reactions No No No Had a fall/change in ADL's that may No No No increase risk of falls Signs or symptoms of abuse and/or No No No neglect since last visit Have you been in the hospital since your No No No last visit? Has dressing in place as prescribed Yes Yes Yes Has compression in place as prescribed Yes Yes Yes Has offloadiing in place as prescribed Yes Yes N/A Experienced any changes in pain level or No No No management Left Footwear Surgical Shoe Regular Shoe with pressure relief insole Right Footwear Regular Shoe Regular Shoe Pain Scale: 0-10 Numeric Is Patient Pain Free? Yes Yes Yes 09/21/24 14:56 WC - Today's Visit Information Type of service Follow-up Visit (Physician/MEDICAL DEVICE ASSEMBLER ) Arrival Mode Wheelchair Transfer Assistance None Transfer Assist (Other) Accompanied by Patient Identification Verified (Name & Yes ) Patient Requires Transmission-Based No Precautions Safety Precautions Vital Signs Temperature (97.8 F-99.1 F) 97.3 F L Temperature Source Temporal Pulse Rate (60-100) 66 Pulse Location Monitor Respiratory Rate (12-18) 20 H Respiratory rate source Observation Oxygen Delivery Method Blood Pressure (90/60-120/80) 113/64 Blood Pressure Mean (mm Hg) 80 Source Monitor Position Sitting Blood Pressure Location Left Arm History Since [...] pain level or No management Left Footwear Right Footwear Pain Scale: 0-10 Numeric Is Patient Pain Free? Yes - Nurse 1 - General Ulcer Measurement Start: 08/31/24 14:38 Freq: Status: Active Protocol: Activity Type Activity Date Activity User E-sign Co-sign Detail Recorded Client Recorded Date Recorded By Document 08/31/24 14:39 DL [id number] 08/31/24 14:44 DL Document 09/07/24 11:27 KW [id number] 09/07/24 11:35 KW Document 09/14/24 14:49 KW [id number] 09/14/24 14:58 KW Document 09/21/24 14:56 ML [id number] 09/21/24 14:59 ML 08/31/24 09/07/24 09/14/24 14:39 11:27 14:49 Wound Center Nurse 1 3-left foot -Current Size (cm) - Length 0.8 1.9 0.6 -Current Size (cm) - Width 1.6 0.8 1.8 -Current Size (cm) - Depth 0.2 0.3 0.2 -Total Square Cm 1.28 1.52 1.08 -Date of Last Picture (Recall this 09/14/24 field) -Exudate Amt Medium Medium Large -Exudate Type Serosanguineous Serosanguineous Serosanguineous -Wound Margin Distinct, Distinct, Thickened & Outline Outline Rolled Under Attached Attached -Granulation Amt None Present (0 Small (1-33%) Medium (34-66%) %) -Granulation Quality [place] Red -Slough/Fibrin -Necrosis Amt Large (67-100%) Large (67-100%) Medium (34-66%) -Necrotic Tissue Type Adherent Slough Adherent Slough Adherent Slough -Structure Exposed N/A -Texture (Bell-wound Skin Appearance) Scarring Assessed, Assessed, Localized Edema Localized Edema -Moisture (Bell-wound Skin Appearance) Dry/Scaly Assessed Assessed -Color (Bell-wound Skin Appearance) Erythema Assessed, Assessed, Erythema Erythema -Temperature (Bell-wound Skin No Abnormality No Abnormality No Abnormality Appearance) (Pt Warm) (Pt Warm) (Pt Warm) -Tenderness on Palpation (Bell-wound No No Skin Appearance) -Ulcer Cleansing Rinsed/ Soap and Water Soap and Water Irrigated with Saline -Foul Odor after Cleansing No No -Anesthetic Used 5% Lidocaine 5% Lidocaine 5% Lidocaine Gel Gel Gel #1- L MEDIAL ANKLE -Current Size (cm) - Length 1 0.9 1 -Current Size (cm) - Width 1 0.9 1 -Current Size (cm) - Depth 0.1 0.1 0.3 -Total Square Cm 1 0.81 1 -Date of Last Picture (Recall this 09/07/24 09/14/24 field) -Circular Undermining Yes -Exudate Amt Small Small Large -Exudate Type Serosanguineous Serosanguineous -Wound Margin Distinct, Distinct, Thickened & Outline Outline Rolled Under Attached Attached -Granulation Amt None Present (0 Small (1-33%) %) -Granulation Quality Red -Slough/Fibrin -Necrosis Amt Large (67-100%) Large (67-100%) -Necrotic Tissue Type Eschar Adherent Slough -Structure Exposed N/A -Texture (Bell-wound Skin Appearance) Scarring Assessed Assessed, Localized Edema -Moisture (Bell-wound Skin Appearance) Dry/Scaly Assessed Assessed -Color (Bell-wound Skin Appearance) No Abnormality Assessed Assessed, Erythema -Temperature (Bell-wound Skin No Abnormality No Abnormality No Abnormality Appearance) (Pt Warm) (Pt Warm) (Pt Warm) -Tenderness on Palpation (Bell-wound No No No Skin Appearance) -Ulcer Cleansing Soap and Water Soap and Water -Foul Odor after Cleansing No No No -Anesthetic Used 5% Lidocaine 5% Lidocaine Gel Gel -Wound Comment(s) Epicord intact. left inplace. Left Calf (cm) 27.5 27 Left Ankle (cm) 20.6 21.6 09/21/24 14:56 Wound Center Nurse 1 3-left foot -Current Size (cm) - Length 1.5 -Current Size (cm) - Width 1.5 -Current Size (cm) - Depth 0.2 -Total Square Cm 2.25 -Date of Last Picture (Recall this field) -Exudate Amt Medium -Exudate Type Serosanguineous -Wound Margin -Granulation Amt Medium (34-66%) -Granulation Quality -Slough/Fibrin Yes -Necrosis Amt Medium (34-66%) -Necrotic Tissue Type Adherent Slough -Structure Exposed -Texture (Bell-wound Skin Appearance) Assessed -Moisture (Bell-wound Skin Appearance) Assessed -Color (Bell-wound Skin Appearance) Assessed -Temperature (Bell-wound Skin No Abnormality Appearance) (Pt Warm) -Tenderness on Palpation (Bell-wound Yes Skin Appearance) -Ulcer Cleansing Rinsed/ Irrigated with Saline -Foul Odor after Cleansing No -Anesthetic Used 5% Lidocaine Gel #1- L MEDIAL ANKLE -Current Size (cm) - Length 1 -Current Size (cm) - Width 2 -Current Size (cm) - Depth 0.2 -Total Square Cm 2 -Date of Last Picture (Recall this field) -Circular Undermining -Exudate Amt Medium -Exudate Type Serosanguineous -Wound Margin Distinct, Outline Attached -Granulation Amt Medium (34-66%) -Granulation Quality -Slough/Fibrin Yes -Necrosis Amt Small (1-33%) -Necrotic Tissue Type Adherent Slough -Structure Exposed -Texture (Bell-wound Skin Appearance) Assessed -Moisture (Bell-wound Skin Appearance) Assessed -Color (Bell-wound Skin Appearance) Assessed -Temperature (Bell-wound Skin No Abnormality Appearance) (Pt Warm) -Tenderness on Palpation (Bell-wound Yes Skin Appearance) -Ulcer Cleansing Rinsed/ Irrigated with Saline -Foul Odor after Cleansing No -Anesthetic Used 5% Lidocaine Gel -Wound Comment(s) Left Calf (cm) Left Ankle (cm) WC - Nurse 2 - General Ulcer CM Notes Start: 08/31/24 14:38 Freq: Status: Active Protocol: Activity Type Activity Date Activity User E-sign Co-sign Detail Recorded Client Recorded Date Recorded By Document 08/31/24 14:49 [id number] 08/31/24 14:52 Document 09/07/24 11:50 [id number] 09/07/24 12:03 Document 09/14/24 15:09 [id number] 09/14/24 15:11 Document 09/21/24 15:11 [id number] 09/21/24 15:16 08/31/24 09/07/24 09/14/24 14:49 11:50 15:09 Wound Center Nurse 2 3-left foot -Time 14:49 11:50 15:10 -Correct Patient Yes Yes Yes -Correct Side, Site, Position Yes Yes Yes -Correct Procedure Yes Yes Yes -Procedure Performed Yes Yes Yes -Type of Procedure Debridement Debridement Debridement -Clinical Debridement Subcutaneous Subcutaneous Muscle / Fascia -Tissue Removed Subcutaneous Subcutaneous Muscle -Post Debridement (cm) - Length 0.8 0.7 0.9 -Post Debridement (cm) - Width 1.6 1.5 1.8 -Post Debridement (cm) - Depth 0.1 0.2 0.2 -Total Square (Post) (cm) 1.28 1.05 1.62 -Area of Debridement (cm) - Length 0.8 0.7 0.9 -Area of Debridement (cm) - Width 1.3 4.5 1.8 -Total Square (Area) (cm) 1.04 3.15 1.62 -Tunneling No No No -Undermining/Tunneling No No No -Circular Undermining No No No -Wound/Ulcer Outcome Not Healed Not Healed Not Healed -Ulcer Cleansing Rinsed/ Not Cleansed Rinsed/ Irrigated with Irrigated with Saline Saline -Foul Odor after Cleansing No No No -Bioengineered Tissue No No No -Bleeding Controlled with Pressure Pressure Pressure -Treatment Response Procedure Procedure Procedure Tolerated Well Tolerated Well Tolerated Well -Offloading No No Yes -Type of Offloading Surgical Shoe -Debridement - Subq, 1st 20sq cm Yes No -Debridement - Muscle / Fascia, 1st No 20sq cm #1- L MEDIAL ANKLE -Time 11:54 15:09 -Correct Patient Yes Yes Yes -Correct Side, Site, Position No Yes Yes -Correct Procedure No Yes Yes -Procedure Performed No Yes Yes -Type of Procedure Debridement Debridement -Clinical Debridement Subcutaneous Muscle / Fascia -Tissue Removed Subcutaneous Muscle -Post Debridement (cm) - Length 0.8 1 -Post Debridement (cm) - Width 1.0 1 -Post Debridement (cm) - Depth 0.5 0.3 -Total Square (Post) (cm) 0.80 1 -Area of Debridement (cm) - Length 0.8 1 -Area of Debridement (cm) - Width 1.0 1 -Total Square (Area) (cm) 0.80 1 -Tunneling No No -Undermining/Tunneling No No -Circular Undermining Yes No -Wound/Ulcer Outcome Not Healed Not Healed Not Healed -Ulcer Cleansing Not Cleansed Rinsed/ Irrigated with Saline -Foul Odor after Cleansing No No -Bioengineered Tissue No No -Bleeding Controlled with Pressure Pressure -Treatment Response Procedure Procedure Tolerated Well Tolerated Well -Offloading Yes -Type of Offloading Surgical Shoe -Debridement - Subq, 1st 20sq cm Yes -Debridement - Muscle / Fascia, 1st Yes 20sq cm Pain Scale: 0-10 Numeric Is Patient Pain Free? Yes Yes Yes 09/21/24 15:11 Wound Center Nurse 2 3-left foot -Time 15:14 -Correct Patient Yes -Correct Side, Site, Position Yes -Correct Procedure Yes -Procedure Performed Yes -Type of Procedure Debridement -Clinical Debridement Muscle / Fascia -Tissue Removed Tendon -Post Debridement (cm) - Length 0.8 -Post Debridement (cm) - Width 1.1 -Post Debridement (cm) - Depth 0.2 -Total Square (Post) (cm) 0.88 -Area of Debridement (cm) - Length 0.8 -Area of Debridement (cm) - Width 1.1 -Total Square (Area) (cm) 0.88 -Tunneling No -Undermining/Tunneling No -Circular Undermining No -Wound/Ulcer Outcome Not Healed -Ulcer Cleansing Rinsed/ Irrigated with Saline -Foul Odor after Cleansing No -Bioengineered Tissue No -Bleeding Controlled with Pressure -Treatment Response Procedure Tolerated Well -Offloading No -Type of Offloading -Debridement - Subq, 1st 20sq cm No -Debridement - Muscle / Fascia, 1st No 20sq cm #1- L MEDIAL ANKLE -Time 15:13 -Correct Patient Yes -Correct Side, Site, Position Yes -Correct Procedure Yes -Procedure Performed Yes -Type of Procedure Debridement -Clinical Debridement Muscle / Fascia -Tissue Removed Muscle -Post Debridement (cm) - Length 0.9 -Post Debridement (cm) - Width 1.0 -Post Debridement (cm) - Depth 0.3 -Total Square (Post) (cm) 0.90 -Area of Debridement (cm) - Length 0.9 -Area of Debridement (cm) - Width 1.0 -Total Square (Area) (cm) 0.90 -Tunneling No -Undermining/Tunneling No -Circular Undermining No -Wound/Ulcer Outcome Not Healed -Ulcer Cleansing Rinsed/ Irrigated with Saline -Foul Odor after Cleansing No -Bioengineered Tissue No -Bleeding Controlled with Pressure -Treatment Response Procedure Tolerated Well -Offloading No -Type of Offloading -Debridement - Subq, 1st 20sq cm -Debridement - Muscle / Fascia, 1st Yes 20sq cm Pain Scale: 0-10 Numeric Is Patient Pain Free? Yes WC - Nurse 3 - General Ulcer D/C NN Start: 08/31/24 14:38 Freq: Status: Active Protocol: Activity Type Activity Date Activity User E-sign Co-sign Detail Recorded Client Recorded Date Recorded By Document 08/31/24 15:05 [facility] [id number] 08/31/24 15:07 [facility] Document 09/07/24 12:14 [id number] 09/07/24 12:16 Document 09/21/24 15:37 DL [id number] 09/21/24 15:38 DL 08/31/24 09/07/24 09/21/24 15:05 12:14 15:37 Wound Care Center Nurse 3 3-left foot -Ulcer Cleansing Rinsed/ Not Cleansed Rinsed/ Irrigated with Irrigated with Saline Saline -Foul Odor after Cleansing No No No -Primary Dressing Applied AMD Dressing Promogran AMD Dressing 4x4 Tray Matter 4x4 -Other Dressing drsg per dl mill work -Primary Dressing Covered/Secured with Dry Gauze & Dry Gauze & Dry Gauze,Dry Roll Gauze, Roll Gauze, Gauze & Roll Secured with Secured with Gauze Tape Tape -Other Covering atb oint -AMD Dressing 4x4 1 1 -Promogran Tray Matter 1 #1- L MEDIAL ANKLE -Ulcer Cleansing Not Cleansed Rinsed/ Irrigated with Saline -Foul Odor after Cleansing No No -Other Dressing epicord AMD Foam -Primary Dressing Covered/Secured with Dry Gauze & Dry Gauze & Roll Gauze, Roll Gauze, Secured with Secured with Tape Tape -Other Covering drsg per dl mill work used remainder of tray LLE -Lotion applied to leg before No compression wrap -Tubular Bandage Single Layer Single Layer Single Layer -Size of Tubigrip Used Size E Size D Size E -Size D ($) 1 -Size E ($) 1 1 -Other applied per dl mill work Treatment Response Procedure Procedure Tolerated Well Tolerated Well Pain Scale: 0-10 Numeric Is Patient Pain Free? 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 All findings were discussed with the patient. All questions were answered to the patient's satisfaction. Excisional debridement down to and including subcutaneous tissue, fascia and muscle to the left medial ankle full-thickness wound with a number 3 mm dermal curette and without incident. Predebridement measurement was 0.8 x 0.9 x 0.1 cm. Postdebridement measurement is 0.9 x 1.0 x 0.3 cm. Excisional debridement down to including subcutaneous tissue to left lower extremity first metatarsal phalangeal joint dorsally with a #3 minimally dermal curette done without incident. Predebridement measurement was 0.7 x 1.0 x 0.1 cm. Postdebridement measurement is 0.8 x 1.1 x 0.2 cm. The 2 wounds were wiped clean and patted dry. AMD pad followed by dry sterile dressing and light compression wrap were donned. Will begin authorization through arterial and venous studies to the patient's left lower extremity as we show evidence of delayed healing. After review of the patient's culture there is more microbial growth sensitive to doxycycline which he will be placed on 100 mg twice daily for 2 weeks. Patient will continue daily supplementation. The patient will follow-up with with Dr. Blunt in 1 week and then with Dr. Mazariegos in 1 week. (2) Non-pressure chronic ulcer of other part of left foot with fat layer exposed: CODE(S): L97.522 - Non-pressure chronic ulcer of other part of left foot with fat layer exposed (3) Other specified peripheral vascular diseases: CODE(S): I73.89 - Other specified peripheral vascular diseases 09/21/24 1655 <Electronically signed by Rasta Mazariegos DPJustus> Cosigner Signature (if applicable): CC: ~ Signed [facility] Work Phone: 1(553) 521-832107-21-2025 Telephone encounter Note* Telephone Encounter - Sylvie Ortega - 09/19/2024 2:34 PM EDT This has been scheduled. Sylvie Ortega [facility]07-21-2025 Miscellaneous Notes* Telephone Encounter - Sylvie Ortega - 09/19/2024 2:34 PM EDT This has been scheduled. Sylvie Ortega * Telephone Encounter - Donna Bell LPN - 09/19/2024 1:25 PM EDT Patient notified. Pt had to cancel apt last week due to ER visit. Please assist in rescheduling. Donna Bell LPN * Telephone Encounter - Salazar Meraz DO - 09/19/2024 12:34 PM EDT Can let him know CT scan shows stable findings without concern of active cancer at this time. Signature * Telephone Encounter - Annabella Chiang LPN - 09/16/2024 3:22 PM EDT Pt. Agreed to see Dr. Meraz the first week in September if possible, instead of next week. Nothing available. Annabella Chiang LPN * Telephone Encounter - Annabella Chiang LPN - 09/16/2024 12:11 PM EDT Spoke with pts. concerning canceling todays appt. Since CT scan not yet read, once read Dr. Meraz will contact them with results . Offered 09/29 @ 8:50 am. They are unable to make early appts. Informed I have nothing but early next week. They questioned following week. Informed will discuss with Dr. Meraz for week of September later in the afternoon. Pt. informed Pt. Has been passing a lot of blood in BM's, started on Thursday, today having more watery blood. and has also noted when he coughs has blood in the mucous a substantial amt. Instructed pt. He needed to go to ER to be evaluated as the blood in his stool is now watery blood. Pt. In agreement and will go to [facility] ER. Annabella Chiang LPN [facility] Telephone encounter Note * Telephone Encounter - Donna Bell LPN - 09/19/2024 1:25 PM EDT Patient notified. Pt had to cancel apt last week due to ER visit. Please assist in rescheduling. Donna Bell LPN [facility]07-21-2025 Telephone encounter Note* Telephone Encounter - Salazar Meraz DO - 09/19/2024 12:34 PM EDT Can let him know CT scan shows stable findings without concern of active cancer at this time. Signature [facility]07-19-[address] [facility]07-19-2025 Progress note Author Rasta Mazariegos [facility] Note Date/Time September 17, 2024 12:4 4am [facility] [address] [place] [address] Progress Note - Wound Care 09/17/24 0035 MR#: [id number] Acct: [id number] Name: OSWALDO CORLEY Rep #:[id number] : 1940 84 From: Rasta Boykin PM PCP: Dr. Mei Cummins MD Status:RE G RCR Location: History of Present Illness Date of Service: 09/14/24 Chief Complaint: Left medial ankle and left foot ulcers History of Wound: This is an 84-year-old male with a left medial ankle ulcer that had been seeing Special Events Planner, Dr. Viveros, at the [facility]. The patient has a significant history for COPD, and is on home O2. He also has a history of Prostate CA, Squamous carcinoma of left lung, HTN, anxiety and depression, AAA without rupture, CAD, coronary artery stent placement (multiple), CABG x 3, former smoker, PAD, PBH, and pulmonary embolism-on anticoagulants, and hyperlipidemia. He has had arterial studies in the past andhad some vascular procedures (by Dr. Vigil) to his left leg. He denies a historyof diabetes. His providers are all with [facility]. He has had this left medial ankle ulcer for more than 3 months. He had been placing Santyl covered with [facility]. There had not been much improvement to this area, and he was referred to see us by [facility], and that Dr. Viveros also suggested he get a second opinion. The patient is seen at this time as a courtesy to his regular Wound Center provider, Dr. Rasta Mazariegos, who is unavailable this week. Progress of Wound: Chronic slow healing ulceration appreciated to the medial ankle and dorsal firstmetatarsal phalangeal joint left foot. Subjective Subjective Patient is 84-year-old male present to clinic today for follow-up evaluation of full-thickness wound to the left medial ankle and dorsal aspect of the first bigtoe joint. Patient has been compliant with dressing changes. He Juan some redness to the big toe joint as well as pain. He is weightbearing as tolerated. He denies trauma. Denies constitutional symptoms. No other pedal complaints at this time. Objective Data Objective Data Vital Signs: Vital Signs Temp Pulse Resp BP O2 Del Method 97.2 F L 73 18 97/58 L Nasal Cannula 09/14/24 14:49 09/14/24 14:49 09/14/24 14:49 09/14/24 14:49 09/14/24 14:49 Oxygen Delivery Method Nasal Cannula Lab / Micro Data Micro: Microbiology 09/15/24 14:41 Wound - Toe Gram Stain - Final 09/15/24 14:41 Wound - Toe Wound Culture - Preliminary Staphylococcus aureus Physical Exam Narrative Vascular: DP and PT pulses are faintly palpable. CFT is brisk. Blanchable erythema to the periwound of the dorsal first metatarsal phalangeal joint left foot. Neurological: Light touch intact. Patient does despond painful stimuli. Dermatological: Full-thickness wound to the left medial ankle measuring 1.0 x 1.0 x 0.3 cm. Negative probe to bone. Full-thickness wound to the dorsal aspectleft foot first metatarsal phalangeal joint measuring 0.9 x 1.8 x 0.1 cm. Periwound erythema which is blanchable. Excisional debridement down to and including subcutaneous tissue, fascia and muscle to the left medial ankle full-thickness wound with a number 3 mm dermal curette and without incident. Predebridement measurement was 0.8 x 0.9 x 0.2 cm. Postdebridement measurement is 1.0 x 1.0 x 0.3 cm. Excisional debridement down to including subcutaneous tissue to left lower extremity first metatarsal phalangeal joint dorsally with a #3 minimally dermal curette done without incident. Predebridement measurement was 0.8 x 1.7 x 0.1 cm. Postdebridement measurement is 0.9 x 1.8 x 0.1 cm. Cx taken. Musculoskeletal: Pain on palpation to the left 1st MPJ full thickness wound. Nopain with calf pressure. Debridement Note Debridement Note Debridement Free Text: Excisional debridement down to and including subcutaneoustissue, fascia and muscle to the left medial ankle full-thickness wound with a number 3 mm dermal curette and without incident. Predebridement measurement was0.8 x 0.9 x 0.2 cm. Postdebridement measurement is 1.0 x 1.0 x 0.3 cm. Excisional debridement down to including subcutaneous tissue to left lower extremity first metatarsal phalangeal joint dorsally with a #3 minimally dermal curette done without incident. Predebridement measurement was 0.8 x 1.7 x 0.1 cm. Postdebridement measurement is 0.9 x 1.8 x 0.1 cm. Cx taken. Post-Debridement Measurements and Additional Note: Post-Debridement Measurements/Treatment WC - Nurse 1 - General Ulcer Assessment Start: 08/31/24 14:38 Freq: Status: Active Protocol: MILENA Activity Type Activity Date Activity User E-sign Co-sign Detail Recorded Client Recorded Date Recorded By Document 08/31/24 14:39 DL [id number] 08/31/24 14:44 DL Document 09/07/24 11:27 KW [id number] 09/07/24 11:35 KW Document 09/14/24 14:49 KW [id number] 09/14/24 14:58 KW Edit Result 09/14/24 14:49 KW (1) [id number] 09/14/24 15:01 KW (1) Temperature (97.8 F-99.1 F) => 97.2 F L Pulse Rate (60-100) => 73 Blood Pressure (90/60-120/80) => 97/58 L Blood Pressure Mean (mm Hg) => 71 08/31/24 09/07/24 09/14/24 14:39 11:27 14:49 - Today's Visit Information Type of service Follow-up Visit Follow-up Visit Follow-up Visit (Physician/MEDICAL DEVICE ASSEMBLER (Physician/MEDICAL DEVICE ASSEMBLER (Physician/MEDICAL DEVICE ASSEMBLER ) ) ) Arrival Mode Wheelchair Wheelchair Wheelchair Transfer Assistance Manual Transfer Assist (Other) x1 Accompanied by Patient Identification Verified (Name & Yes Yes Yes ) Patient Requires Transmission-Based No Precautions Safety Precautions Fall Prevention Vital Signs Temperature (97.8 F-99.1 F) 97 F L 96.7 F L 97.2 F L Temperature Source Temporal Temporal Temporal Pulse Rate (60-100) 79 78 73 Pulse Location Monitor Monitor Monitor Respiratory Rate (12-18) 22 H 18 18 Respiratory rate source Observation Observation Observation Oxygen Delivery Method Nasal Cannula Nasal Cannula Blood Pressure (90/60-120/80) 129/78 H 121/45 H 97/58 L Blood Pressure Mean (mm Hg) 95 70 71 Source Monitor Monitor Monitor Position Semi-Fowlers Sitting Blood Pressure Location Left Arm Left Arm History Since Last Visit- (Skip if this is Patient's initial visit) Have you changed medications since your No No No last visit? Any new allergies or adverse reactions No No No Had a fall/change in ADL's that may No No No increase risk of falls Signs or symptoms of abuse and/or No No No neglect since last visit Have you been in the hospital since your No No No last visit? Has dressing in place as prescribed Yes Yes Yes Has compression in place as prescribed Yes Yes Yes Has offloadiing in place as prescribed Yes Yes N/A Experienced any changes in pain level or No No No management Left Footwear Surgical Shoe Regular Shoe with pressure relief insole Right Footwear Regular Shoe Regular Shoe Pain Scale: 0-10 Numeric Is Patient Pain Free? Yes Yes Yes WC - Nurse 1 - General Ulcer Measurement Start: 08/31/24 14:38 Freq: Status: Active Protocol: Activity Type Activity Date Activity User E-sign Co-sign Detail Recorded Client Recorded Date Recorded By Document 08/31/24 14:39 DL [id number] 08/31/24 14:44 DL Document 09/07/24 11:27 KW [id number] 09/07/24 11:35 KW Document 09/14/24 14:49 KW [id number] 09/14/24 14:58 KW 08/31/24 09/07/24 09/14/24 14:39 11:27 14:49 Wound Center Nurse 1 3-left foot -Current Size (cm) - Length 0.8 1.9 0.6 -Current Size (cm) - Width 1.6 0.8 1.8 -Current Size (cm) - Depth 0.2 0.3 0.2 -Total Square Cm 1.28 1.52 1.08 -Date of Last Picture (Recall this 09/14/24 field) -Exudate Amt Medium Medium Large -Exudate Type Serosanguineous Serosanguineous Serosanguineous -Wound Margin Distinct, Distinct, Thickened & Outline Outline Rolled Under Attached Attached -Granulation Amt None Present (0 Small (1-33%) Medium (34-66%) %) -Granulation Quality [place] Red -Necrosis Amt Large (67-100%) Large (67-100%) Medium (34-66%) -Necrotic Tissue Type Adherent Slough Adherent Slough Adherent Slough -Structure Exposed N/A -Texture (Bell-wound Skin Appearance) Scarring Assessed, Assessed, Localized Edema Localized Edema -Moisture (Bell-wound Skin Appearance) Dry/Scaly Assessed Assessed -Color (Bell-wound Skin Appearance) Erythema Assessed, Assessed, Erythema Erythema -Temperature (Bell-wound Skin No Abnormality No Abnormality No Abnormality Appearance) (Pt Warm) (Pt Warm) (Pt Warm) -Tenderness on Palpation (Blel-wound No No Skin Appearance) -Ulcer Cleansing Rinsed/ Soap and Water Soap and Water Irrigated with Saline -Foul Odor after Cleansing No No -Anesthetic Used 5% Lidocaine 5% Lidocaine 5% Lidocaine Gel Gel Gel #1- L MEDIAL ANKLE -Current Size (cm) - Length 1 0.9 1 -Current Size (cm) - Width 1 0.9 1 -Current Size (cm) - Depth 0.1 0.1 0.3 -Total Square Cm 1 0.81 1 -Date of Last Picture (Recall this 09/07/24 09/14/24 field) -Circular Undermining Yes -Exudate Amt Small Small Large -Exudate Type Serosanguineous Serosanguineous -Wound Margin Distinct, Distinct, Thickened & Outline Outline Rolled Under Attached Attached -Granulation Amt None Present (0 Small (1-33%) %) -Granulation Quality Red -Necrosis Amt Large (67-100%) Large (67-100%) -Necrotic Tissue Type Eschar Adherent Slough -Structure Exposed N/A -Texture (Bell-wound Skin Appearance) Scarring Assessed Assessed, Localized Edema -Moisture (Bell-wound Skin Appearance) Dry/Scaly Assessed Assessed -Color (Bell-wound Skin Appearance) No Abnormality Assessed Assessed, Erythema -Temperature (Bell-wound Skin No Abnormality No Abnormality No Abnormality Appearance) (Pt Warm) (Pt Warm) (Pt Warm) -Tenderness on Palpation (Bell-wound No No No Skin Appearance) -Ulcer Cleansing Soap and Water Soap and Water -Foul Odor after Cleansing No No No -Anesthetic Used 5% Lidocaine 5% Lidocaine Gel Gel -Wound Comment(s) Epicord intact. left inplace. Left Calf (cm) 27.5 27 Left Ankle (cm) 20.6 21.6 WC - Nurse 2 - General Ulcer CM Notes Start: 08/31/24 14:38 Freq: Status: Active Protocol: Activity Type Activity Date Activity User E-sign Co-sign Detail Recorded Client Recorded Date Recorded By Document 08/31/24 14:49 [id number] 08/31/24 14:52 Document 09/07/24 11:50 [id number] 09/07/24 12:03 Document 09/14/24 15:09 [id number] 09/14/24 15:11 08/31/24 09/07/24 09/14/24 14:49 11:50 15:09 Wound Center Nurse 2 3-left foot -Time 14:49 11:50 15:10 -Correct Patient Yes Yes Yes -Correct Side, Site, Position Yes Yes Yes -Correct Procedure Yes Yes Yes -Procedure Performed Yes Yes Yes -Type of Procedure Debridement Debridement Debridement -Clinical Debridement Subcutaneous Subcutaneous Muscle / Fascia -Tissue Removed Subcutaneous Subcutaneous Muscle -Post Debridement (cm) - Length 0.8 0.7 0.9 -Post Debridement (cm) - Width 1.6 1.5 1.8 -Post Debridement (cm) - Depth 0.1 0.2 0.2 -Total Square (Post) (cm) 1.28 1.05 1.62 -Area of Debridement (cm) - Length 0.8 0.7 0.9 -Area of Debridement (cm) - Width 1.3 4.5 1.8 -Total Square (Area) (cm) 1.04 3.15 1.62 -Tunneling No No No -Undermining/Tunneling No No No -Circular Undermining No No No -Wound/Ulcer Outcome Not Healed Not Healed Not Healed -Ulcer Cleansing Rinsed/ Not Cleansed Rinsed/ Irrigated with Irrigated with Saline Saline -Foul Odor after Cleansing No No No -Bioengineered Tissue No No No -Bleeding Controlled with Pressure Pressure Pressure -Treatment Response Procedure Procedure Procedure Tolerated Well Tolerated Well Tolerated Well -Offloading No No Yes -Type of Offloading Surgical Shoe -Debridement - Subq, 1st 20sq cm Yes No -Debridement - Muscle / Fascia, 1st No 20sq cm #1- L MEDIAL ANKLE -Time 11:54 15:09 -Correct Patient Yes Yes Yes -Correct Side, Site, Position No Yes Yes -Correct Procedure No Yes Yes -Procedure Performed No Yes Yes -Type of Procedure Debridement Debridement -Clinical Debridement Subcutaneous Muscle / Fascia -Tissue Removed Subcutaneous Muscle -Post Debridement (cm) - Length 0.8 1 -Post Debridement (cm) - Width 1.0 1 -Post Debridement (cm) - Depth 0.5 0.3 -Total Square (Post) (cm) 0.80 1 -Area of Debridement (cm) - Length 0.8 1 -Area of Debridement (cm) - Width 1.0 1 -Total Square (Area) (cm) 0.80 1 -Tunneling No No -Undermining/Tunneling No No -Circular Undermining Yes No -Wound/Ulcer Outcome Not Healed Not Healed Not Healed -Ulcer Cleansing Not Cleansed Rinsed/ Irrigated with Saline -Foul Odor after Cleansing No No -Bioengineered Tissue No No -Bleeding Controlled with Pressure Pressure -Treatment Response Procedure Procedure Tolerated Well Tolerated Well -Offloading Yes -Type of Offloading Surgical Shoe -Debridement - Subq, 1st 20sq cm Yes -Debridement - Muscle / Fascia, 1st Yes 20sq cm Pain Scale: 0-10 Numeric Is Patient Pain Free? Yes Yes Yes WC - Nurse 3 - General Ulcer D/C NN Start: 08/31/24 14:38 Freq: Status: Active Protocol: Activity Type Activity Date Activity User E-sign Co-sign Detail Recorded Client Recorded Date Recorded By Document 08/31/24 15:05 [facility] [id number] 08/31/24 15:07 [facility] Document 09/07/24 12:14 [id number] 09/07/24 12:16 08/31/24 09/07/24 15:05 12:14 Wound Care Center Nurse 3 3-left foot -Ulcer Cleansing Rinsed/ Not Cleansed Irrigated with Saline -Foul Odor after Cleansing No No -Primary Dressing Applied AMD Dressing Promogran 4x4 Tray Matter -Other Dressing drsg per dl mill work -Primary Dressing Covered/Secured with Dry Gauze & Dry Gauze & Roll Gauze, Roll Gauze, Secured with Secured with Tape Tape -Other Covering atb oint -AMD Dressing 4x4 1 -Promogran Tray Matter 1 #1- L MEDIAL ANKLE -Ulcer Cleansing Not Cleansed -Foul Odor after Cleansing No -Other Dressing epicord -Primary Dressing Covered/Secured with Dry Gauze & Roll Gauze, Secured with Tape -Other Covering drsg per dl mill work used remainder of tray LLE -Lotion applied to leg before No compression wrap -Tubular Bandage Single Layer Single Layer -Size of Tubigrip Used Size E Size D -Size D ($) 1 -Size E ($) 1 -Other applied per dl mill work Treatment Response Procedure Tolerated Well Pain Scale: 0-10 Numeric Is Patient Pain Free? 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 All findings were discussed with the patient. All questions were answered to the patient's satisfaction. Excisional debridement down to and including subcutaneous tissue, fascia and muscle to the left medial ankle full-thickness wound with a number 3 mm dermal curette and without incident. Predebridement measurement was 0.8 x 0.9 x 0.2 cm. Postdebridement measurement is 1.0 x 1.0 x 0.3 cm. Excisional debridement down to including subcutaneous tissue to left lower extremity first metatarsal phalangeal joint dorsally with a #3 minimally dermal curette done without incident. Predebridement measurement was 0.8 x 1.7 x 0.1 cm. Postdebridement measurement is 0.9 x 1.8 x 0.1 cm. Cx taken. The full-thickness wounds was wiped clean and patted dry. AMD pad were applied. Patient was dispensed extra dressing supplies. Dry sterile dressing and light compression wrap. Patient perform daily dressing changes to every other day dressing changes as discussed Will plan antibiotic coverage when culture results returned with sensitivity. Patient does not have any no known allergies at this time. Patient will continue daily supplementation. The patient will follow-up with with Dr. Blunt in 1 week and then with Dr. Mazariegos in 1 week. (2) Non-pressure chronic ulcer of other part of left foot with fat layer exposed: CODE(S): L97.522 - Non-pressure chronic ulcer of other part of left foot with fat layer exposed (3) Other specified peripheral vascular diseases: CODE(S): I73.89 - Other specified peripheral vascular diseases 09/17/24 0044 <Electronically signed by Rasta Mazariegos DPM> Cosigner Signature (if applicable): CC: ~ Signed [facility] Work Phone: 1(997) 404-546707-18-2025 Telephone encounter Note* Telephone Encounter - Annabella Chiang LPN - 09/16/2024 3:22 PM EDT Pt. Agreed to see Dr. Meraz the first week in September if possible, instead of next week. Nothing available. Annabella Chiang LPN [facility]07-18-2025 Telephone encounter Note* Telephone Encounter - Annabella Chiang LPN - 09/16/2024 12:11 PM EDT Spoke with pts. concerning canceling todays appt. Since CT scan not yet read, once read Dr. Meraz will contact them with results . Offered 09/29 @ 8:50 am. They are unable to make early appts. Informed I have nothing but early next week. They questioned following week. Informed will discuss with Dr. Meraz for week of September later in the afternoon. Pt. informed Pt. Has been passing a lot of blood in BM's, started on Thursday, today having more watery blood. and has also noted when he coughs has blood in the mucous a substantial amt. Instructed pt. He needed to go to ER to be evaluated as the blood in his stool is now watery blood. Pt. In agreement and will go to [facility] ER. Annabella Chiang LPN [facility]07-13-2025 History and physical note Author Misha Blunt [facility] Note Date/Time September 11, 2024 6:10 pm [facility] [address] [place] [address] H&P Exam - Wound Care 09/11/24 1738 MR#: [id number] Acct: [id number] Name: OSWALDO CORLEY Rep #:[id number] : 1940 84 From: Misha Boykin PCP: Dr. Mei Cummins MD Status:RE G RCR Location: History of Present Illness Date of Service: 09/07/24 Chief Complaint: Left medial ankle and left foot ulcers History of Wound: This is an 84-year-old male with a left medial ankle ulcer that had been seeing Special Events Planner, Dr. Viveros, at the [facility]. The patient has a significant history for COPD, and is on home O2. He also has a history of Prostate CA, Squamous carcinoma of left lung, HTN, anxiety and depression, AAA without rupture, CAD, coronary artery stent placement (multiple), CABG x 3, former smoker, PAD, PBH, and pulmonary embolism-on anticoagulants, and hyperlipidemia. He has had arterial studies in the past andhad some vascular procedures (by Dr. Vigil) to his left leg. He denies a historyof diabetes. His providers are all with [facility]. He has had this left medial ankle ulcer for more than 3 months. He had been placing Santyl covered with [employer]. There had not been much improvement to this area, and he was referred to see us by [facility], and that Dr. Viveros also suggested he get a second opinion. The patient is seen at this time as a courtesy to his regular Wound Center provider, Dr. Rasta Mazariegos, who is unavailable this week. [facility] Medical History Chronic respiratory failure with hypoxia [...] PO DAILY cholesterol 0 09/28/23 06/02/24 History albuterol sulfate 90 mcg/actuation 2 puff inhalation Q 4H PRN wheezing 02/19/24 Unknown History aerosol inhaler aspirin 81 mg tablet,delayed 81 mg PO DAILY heart 01/3106/02/24 History release (Enteric Coated Aspirin) oxycodone 5 mg tablet 5 mg PO Q4H PRN chronic pain 02/21/24 06/03/24 History ondansetron 4 mg disintegrating 4 mg PO DAILY PRN naus ea and 03/30/24 05/29/24 History tablet vomiting roflumilast 500 mcg tablet 500 mcg PO DAILY 03/30/24 0 06/03/24 History collagenase clostridium histo. 250 1 applic topical DA SHELIA 05/22/24 05/21/24 History unit/gram topical ointment (Santyl) guaifenesin 600 mg tablet, 1,200 mg PO BID PRN cough 0 05/22/24 06/03/24 History extended release 12 hr (Mucinex) metoprolol tartrate 50 mg tablet 50 mg PO BID #60 tabs 05/24/24 06/03/24 Rx furosemide 20 mg tablet (Lasix) 20 mg PO DAILY PRN chris ght gain 30 06/05/24 05/21/24 Rx days #0 tabs lorazepam 1 mg tablet 1 mg PO TID PRN anxiety 30 d ays #0 06/05/24 06/02/24 Rx tabs sulfamethoxazole 800 1 tab PO BID 2 weeks #28 tab s 06/15/24 Unknown Rx mg-trimethoprim 160 mg tablet (Bactrim DS) Allergy/AdvReac Type Severity Reaction Status Date / Time isosorbide (From Imdur) Allergy Other-patient Verified 06/03/24 15:00 blacks out Family History Mother Cancer Father Heart disease COPD (chronic obstructive pulmonary disease) Surgical History Hx of pneumonectomy Hx of CABG Hx of CABG Hx of heart artery stent Hx of transurethral resection of prostate Social History household members: spouse Smoking Status: Former smoker Tobacco: How many years used: 45 Electronic Cigarette Use: not used how long ago did patient quit smokin, second hand exposure: Yes alcohol intake: never substance use type: does not use Physical Exam Const alert, oriented x3 and no apparent distress General Appearance: cooperative and well developed Orientation / Consciousness: awake, oriented to person, oriented to place and oriented to time HEENT normocephalic and head/scalp atraumatic Head and Scalp: normal to inspection, normocephalic and atraumatic Face and Sinus: normal facial exam Nose: external nose normal External Ear: external ears normal Eyes EOMs intact bilaterally General Eye: normal appearance of both eyes Resp normal respiratory effort, normal air movement, no retractions and no use of accessory muscles Effort and Inspection: able to speak in complete sentences Skin Wound Narrative: An ulceration is noted on the left medial malleolus, which extends through all layers of the dermis and into the subcutaneous tissues. There is a moderate amount of bioburden and slough, with evidence of residual portions of a prior cellular tissue product. Mild undermining is noted circumferentially. There isno sign of infection or cellulitis. Dimensions are documented elsewhere. Thereis also an ulceration on the medial aspect of the left first metatarso-phalangeal joint. This ulceration demonstrates a large amount of slough and nonviable tissue, and extends through all layers of the dermis and into the subcutaneous tissues. Mild bell-ulcer erythema is noted. Dimensions are documented elsewhere. The lower extremities demonstrate moderate swelling and edema. Neuro oriented x3, CN's II-XII intact bilaterally and moves all extremities Sensorium / Orientation: awake, alert, oriented to person, oriented to place andoriented to time Speech: speech normal Psych Appearance: grossly normal and appropriate Attitude: calm Activity / Motor Behavior: appropriate eye contact Speech: normal speech Mood & Affect: euthymic mood Thought Process: normal thought process Thought Content: normal thought content Attention / Concentration: attention grossly intact Debridement Note Debridement Note Wound debrided: Ulcerations of the left medial ankle and first metatarsal phalangeal joint Laterality: Left Type of Debridement: Excisional debridement Anesthesia Used: 5% Lidocaine Gel Depth: Down to and including healthy tissue and in the subcutaneous layer Percentage of wound debrided: 100 Instrument Used: 5mm curette Tissue Removed: Bioburden, slough, devitalized tissue, residual cellular tissue product Severity: Fat Layer Exposed Amount of bleeding with debridement: Mild Bleeding Controlled with: Compression and gauze Patient tolerated procedure: Patient tolerated procedure well Post-Debridement Measurements and Additional Note: Post-Debridement Measurements/Treatment - Nurse 1 - General Ulcer Assessment Start: 08/31/24 14:38 Freq: Status: Active Protocol: FABIAN.SHANTI Activity Type Activity Date Activity User E-sign Co-sign Detail Recorded Client Recorded Date Recorded By Document 08/31/24 14:39 DL [id number] 08/31/24 14:44 DL Document 09/07/24 11:27 KW [id number] 09/07/24 11:35 KW 08/31/24 09/07/24 14:39 11:27 - Today's Visit Information Type of service Follow-up Visit Follow-up Visit (Physician/MEDICAL DEVICE ASSEMBLER (Physician/MEDICAL DEVICE ASSEMBLER ) ) Arrival Mode Wheelchair Wheelchair Transfer Assistance Manual Transfer Assist (Other) x1 Accompanied by Patient Identification Verified (Name & Yes Yes ) Patient Requires Transmission-Based No Precautions Safety Precautions Fall Prevention Vital Signs Temperature (97.8 F-99.1 F) 97 F L 96.7 F L Temperature Source Temporal Temporal Pulse Rate (60-100) 79 78 Pulse Location Monitor Monitor Respiratory Rate (12-18) 22 H 18 Respiratory rate source Observation Observation Oxygen Delivery Method Nasal Cannula Blood Pressure (90/60-120/80) 129/78 H 121/45 H Blood Pressure Mean 95 70 Source Monitor Monitor Position Semi-Fowlers Blood Pressure Location Left [...] Has offloadiing in place as prescribed Yes Yes Experienced any changes in pain level or No No management Left Footwear Surgical Shoe with pressure relief insole Right Footwear Regular Shoe Pain Scale: 0-10 Numeric Is Patient Pain Free? Yes Yes WC - Nurse 1 - General Ulcer Measurement Start: 08/31/24 14:38 Freq: Status: Active Protocol: Activity Type Activity Date Activity User E-sign Co-sign Detail Recorded Client Recorded Date Recorded By Document 08/31/24 14:39 DL [id number] 08/31/24 14:44 DL Document 09/07/24 11:27 KW [id number] 09/07/24 11:35 KW 08/31/24 09/07/24 14:39 11:27 Wound Center Nurse 1 3-left foot -Current Size (cm) - Length 0.8 1.9 -Current Size (cm) - Width 1.6 0.8 -Current Size (cm) - Depth 0.2 0.3 -Total Square Cm 1.28 1.52 -Exudate Amt Medium Medium -Exudate Type Serosanguineous Serosanguineous -Wound Margin Distinct, Distinct, Outline Outline Attached Attached -Granulation Amt None Present (0 Small (1-33%) %) -Granulation Quality [place] -Necrosis Amt Large (67-100%) Large (67-100%) -Necrotic Tissue Type Adherent Slough Adherent Slough -Structure Exposed N/A -Texture (Bell-wound Skin Appearance) Scarring Assessed, Localized Edema -Moisture (Bell-wound Skin Appearance) Dry/Scaly Assessed -Color (Bell-wound Skin Appearance) Erythema Assessed, Erythema -Temperature (Bell-wound Skin No Abnormality No Abnormality Appearance) (Pt Warm) (Pt Warm) -Tenderness on Palpation (Bell-wound No Skin Appearance) -Ulcer Cleansing Rinsed/ Soap and Water Irrigated with Saline -Foul Odor after Cleansing No -Anesthetic Used 5% Lidocaine 5% Lidocaine Gel Gel #1- L MEDIAL ANKLE -Current Size (cm) - Length 1 0.9 -Current Size (cm) - Width 1 0.9 -Current Size (cm) - Depth 0.1 0.1 -Total Square Cm 1 0.81 -Date of Last Picture (Recall this 09/07/24 field) -Exudate Amt Small Small -Exudate Type Serosanguineous -Wound Margin Distinct, Distinct, Outline Outline Attached Attached -Granulation Amt None Present (0 %) -Necrosis Amt Large (67-100%) -Necrotic Tissue Type Eschar -Structure Exposed N/A -Texture (Bell-wound Skin Appearance) Scarring Assessed -Moisture (Bell-wound Skin Appearance) Dry/Scaly Assessed -Color (Bell-wound Skin Appearance) No Abnormality Assessed -Temperature (Bell-wound Skin No Abnormality No Abnormality Appearance) (Pt Warm) (Pt Warm) -Tenderness on Palpation (Bell-wound No No Skin Appearance) -Ulcer Cleansing Soap and Water -Foul Odor after Cleansing No No -Anesthetic Used 5% Lidocaine Gel -Wound Comment(s) Epicord intact. left inplace. Left Calf (cm) 27.5 Left Ankle (cm) 20.6 WC - Nurse 2 - General Ulcer CM Notes Start: 08/31/24 14:38 Freq: Status: Active Protocol: Activity Type Activity Date Activity User E-sign Co-sign Detail Recorded Client Recorded Date Recorded By Document 08/31/24 14:49 SONNY [id number] 08/31/24 14:52 Document 09/07/24 11:50 [id number] 09/07/24 12:03 08/31/24 09/07/24 14:49 11:50 Wound Center Nurse 2 3-left foot -Time 14:49 11:50 -Correct Patient Yes Yes -Correct Side, Site, Position Yes Yes -Correct Procedure Yes Yes -Procedure Performed Yes Yes -Type of Procedure Debridement Debridement -Clinical Debridement Subcutaneous Subcutaneous -Tissue Removed Subcutaneous Subcutaneous -Post Debridement (cm) - Length 0.8 0.7 -Post Debridement (cm) - Width 1.6 1.5 -Post Debridement (cm) - Depth 0.1 0.2 -Total Square (Post) (cm) 1.28 1.05 -Area of Debridement (cm) - Length 0.8 0.7 -Area of Debridement (cm) - Width 1.3 4.5 -Total Square (Area) (cm) 1.04 3.15 -Tunneling No No -Undermining/Tunneling No No -Circular Undermining No No -Wound/Ulcer Outcome Not Healed Not Healed -Ulcer Cleansing Rinsed/ Not Cleansed Irrigated with Saline -Foul Odor after Cleansing No No -Bioengineered Tissue No No -Bleeding Controlled with Pressure Pressure -Treatment Response Procedure Procedure Tolerated Well Tolerated Well -Offloading No No -Debridement - Subq, 1st 20sq cm Yes No #1- L MEDIAL ANKLE -Time 11:54 -Correct Patient Yes Yes -Correct Side, Site, Position No Yes -Correct Procedure No Yes -Procedure Performed No Yes -Type of Procedure Debridement -Clinical Debridement Subcutaneous -Tissue Removed Subcutaneous -Post Debridement (cm) - Length 0.8 -Post Debridement (cm) - Width 1.0 -Post Debridement (cm) - Depth 0.5 -Total Square (Post) (cm) 0.80 -Area of Debridement (cm) - Length 0.8 -Area of Debridement (cm) - Width 1.0 -Total Square (Area) (cm) 0.80 -Tunneling No -Undermining/Tunneling No -Circular Undermining Yes -Wound/Ulcer Outcome Not Healed Not Healed -Ulcer Cleansing Not Cleansed -Foul Odor after Cleansing No -Bioengineered Tissue No -Bleeding Controlled with Pressure -Treatment Response Procedure Tolerated Well -Debridement - Subq, 1st 20sq cm Yes Pain Scale: 0-10 Numeric Is Patient Pain Free? Yes Yes WC - Nurse 3 - General Ulcer D/C NN Start: 08/31/24 14:38 Freq: Status: Active Protocol: Activity Type Activity Date Activity User E-sign Co-sign Detail Recorded Client Recorded Date Recorded By Document 08/31/24 15:05 [facility] [id number] 08/31/24 15:07 [facility] Document 09/07/24 12:14 [id number] 09/07/24 12:16 08/31/24 09/07/24 15:05 12:14 Wound Care Center Nurse 3 3-left foot -Ulcer Cleansing Rinsed/ Not Cleansed Irrigated with Saline -Foul Odor after Cleansing No No -Primary Dressing Applied AMD Dressing Promogran 4x4 Tray Matter -Other Dressing drsg per dl mill work -Primary Dressing Covered/Secured with Dry Gauze & Dry Gauze & Roll Gauze, Roll Gauze, Secured with Secured with Tape Tape -Other Covering atb oint -AMD Dressing 4x4 1 -Promogran Tray Matter 1 #1- L MEDIAL ANKLE -Ulcer Cleansing Not Cleansed -Foul Odor after Cleansing No -Other Dressing epicord -Primary Dressing Covered/Secured with Dry Gauze & Roll Gauze, Secured with Tape -Other Covering drsg per dl mill work used remainder of tray LLE -Lotion applied to leg before No compression wrap -Tubular Bandage Single Layer Single Layer -Size of Tubigrip Used Size E Size D -Size D ($) 1 -Size E ($) 1 -Other applied per dl mill work Treatment Response Procedure Tolerated Well Pain Scale: 0-10 Numeric Is Patient Pain Free? Yes Yes WC - Visit Discharge Discharge Condition Stable Stable Ambulatory Status Wheelchair Walker Transportation Private Auto Ambulance Accompanied by Charges/Coding Multi Select Codes Visit Charges Office Visit/Consults: 41345 OV L4 New 45 min Integumentary Integumentary CPT Codes: 99214 Nel subq tissue 20 sq cm/< Assessment/Plan Assessment/Plan (1) Non-pressure chronic ulcer of left ankle with fat layer exposed: CODE(S): L97.322 - Non-pressure chronic ulcer of left ankle with fat layerexposed (2) Non-pressure chronic ulcer of other part of left foot with fat layer exposed: CODE(S): L97.522 - Non-pressure chronic ulcer of other part of left foot with fat layer exposed (3) History of lung cancer: CODE(S): Z85.118 - Personal history of other malignant neoplasm of bronchus and lung (4) BPH (benign prostatic hyperplasia): CODE(S): N40.0 - Benign prostatic hyperplasia without lower urinary tract symptoms (5) Depression: CODE(S): F32.A - Depression, unspecified (6) Coronary artery disease: CODE(S): I25.10 - Atherosclerotic heart disease of [place] coronary artery without angina pectoris (7) Prostate CA: CODE(S): C61 - Malignant neoplasm of prostate (8) HLD (hyperlipidemia): CODE(S): E78.5 - Hyperlipidemia, unspecified QUALIFIERS: Hyperlipidemia type: unspecified Qualified Code(s): E78.5 - Hyperlipidemia, unspecified (9) Stage 3 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: CODE(S): J44.9 - Chronic obstructive pulmonary disease, unspecified (10) TOLENTINO (dyspnea on exertion): CODE(S): R06.00 - Dyspnea, unspecified (11) History of coronary artery disease: CODE(S): Z86.79 - Personal history of other diseases of the circulatory system (12) CAD (coronary artery disease): CODE(S): I25.10 - Atherosclerotic heart disease of [place] coronary artery without angina pectoris QUALIFIERS: Coronary Disease-Associated Artery/Lesion type: nativeartery [place] vs. transplanted heart: [place] heart Associated angina: with other forms of angina Qualified Code(s): I25.118 - Atherosclerotic heart disease of [place] coronary artery with other forms of angina pectoris (13) Debility: CODE(S): R53.81 - Other malaise (14) COPD (chronic obstructive pulmonary disease): CODE(S): J44.9 - Chronic obstructive pulmonary disease, unspecified PLAN: Plan This is an 84-year-old male with multiple pre-existing medical problems. He hasrecently been under the care of Dr. Rasta Mazariegos, Special Events Planner, relative to ulcerations on the left medial malleolus and the left medial first metatarso-phalangeal joint. A cellular tissue product has been used recently on 10 occasions relative to the left medial malleolus ulceration. For now, we are to implement the use of Tray to each of the 2 left lower extremity ulcerations, which will be changed on a daily basis. A Christian AMD foam dressing with PHMB had been used recently, but is currently not available. The patient is to follow-up with Dr. Mazariegos in 1 week. In the interim, the patient has been encouraged to elevate his lower extremities as much as possible. He has been encouraged to sleep on a flat mattress at night. Prolonged idle sitting has been discouraged. Given the patient's compromised respiratory status and reliance on oxygen therapy, enhancement of his activity level is not likely. [place] to continue the use of Tubigrip garments bilaterally for compression. Evaluation of the patient's lower extremity arterial status may be of benefit. It is noted that the patient has been previously evaluated by Dr. Vigil, a Vascular Surgeon at the [facility]. Apparently, a partially successful right lower extremity revascularization was performed. Evaluation for possible left lower extremity revascularization may be warranted, and it is understood that the patient has been referred to Dr. Oliverio Allen for this purpose. Total time: 48 minutes 09/11/241809 <Electronically signed by Misha Blunt MD> Cosigner Signature (if applicable): CC: ~ Signed [facility] Work Phone: 1(757) 916-155107-10-2025 Telephone encounter Note* Telephone Encounter - Mallory Brady - 09/08/2024 12:13 PM EDT Scheduled lab appointment prior to CT Mallory Brady [facility]07-10-2025 Miscellaneous Notes* Telephone Encounter - Mallory Brady - 09/08/2024 12:13 PM EDT Scheduled lab appointment prior to CT Mallory Brady * Telephone Encounter - Chari Velez APRN.CNP - 09/08/2024 11:58 AM EDT Done. Chari Velez APRN.DANELLE * Telephone Encounter - Jailyn Acosta PSS - 09/08/2024 10:[address] order for creatinine order for pt , pt appt on 09/09/[address] [facility] Telephone encounter Note * Telephone Encounter - Chari Velez APRN.CNP - 09/08/2024 11:58 AM EDT Done. Chari Velez APRN.MEDICAL DEVICE ASSEMBLER [facility] Work Phone: 1(384) 482-328407-10-2025 Telephone encounter Note* Telephone Encounter - Jailyn Acosta PSS - 09/08/2024 10:[address] order for creatinine order for pt , pt appt on 09/09/[address] [facility]07-02-2025 Progress note Author Rasta Mazariegos [facility] Note Date/Time August 31, 2024 3:04p [facility] [address] [place] [id number] Progress Note - Wound Care 08/31/24 1500 MR#: [id number] Acct: [id number] Name: OSWALDO CORLEY Rep #:[id number] : 1940 84 From: Rasta Boykin PM PCP: Dr. Mei Cummins MD Status: G R Location: History of Present Illness Date of Service: 08/31/24 Chief Complaint: Left medial ankle ulcer History of Wound: Patient is a very pleasant 83 year old male with a left medialankle ulcer that he has been seeing airport clerk, Dr. Viveros. Patient has a significant history [...] He has been placing Santyl covered with [employer]. There has not been much improvement to this area. He states that he was referred to see us by [facility] and that Dr. Viveros also suggested he get a second opinion. He is on a new medication that his states is an antibiotic but they are unsure of the name. He denies fever, chills, nausea or vomiting. He comes in today for further evaluation and treatment. Progress of Wound: Chronic slow healing ulceration appreciated to the medial ankle and dorsal firstmetatarsal phalangeal joint left foot. Subjective Subjective Patient is 84-year-old male with a past medical history of peripheral arterial disease. He is presenting to the wound care center today for follow-up evaluation of 2 wounds to the left lower extremity 1 at the medial ankle and theother at the dorsal aspect of the first metatarsal phalangeal joint. Patient has been compliant to left the graft clean dry and intact. His has been doing dressing changes with AMD antimicrobial pad to the dorsal big toe joint full-thickness wound. Patient unfortunately sustained a fall on Thursday at his brother's house and hit his head he did not present to the emergency room for evaluation. Since then he has been having some pain to the big toe joint due totrauma. Otherwise he is doing well. He did not blackout during his fall. He denies constitutional symptoms. No other pedal complaints at this time. Objective Data Objective Data Vital Signs: Vital Signs Temp Pulse Resp BP 97 F L 79 22 H 129/78 H 08/31/24 14:39 08/31/24 14:39 08/31/24 14:39 08/31/24 14:39 Physical Exam Narrative Vascular: DP and PT pulses are faintly palpable. CFT is brisk. Blanchable erythema to the periwound of the dorsal first metatarsal phalangeal joint left foot. Neurological: Light touch intact. Patient does despond painful stimuli. Dermatological: Full-thickness wound to the dorsal aspect left foot first metatarsal phalangeal joint measuring 0.8 x 1.6 x 0.1 cm. Periwound erythema which is blanchable. No sign of infection evidence of intact graft to the left medial ankle full-thickness wound. Excisional debridement down to including subcutaneous tissue to left lower extremity first metatarsal phalangeal joint dorsally with a #3 minimally dermal curette done without incident. Predebridement measurement was 0.7 x 1.5 x 0.1 cm. Postdebridement measurement is 0.8 x 1.6 x 0.1 cm. Musculoskeletal: No pain to palpation to full-thickness wound to the left lower extremity medial ankle. No pain with calf pressure. Debridement Note Debridement Note Debridement Free Text: Excisional debridement down to including subcutaneous tissue to left lower extremity first metatarsal phalangeal joint dorsally with a #3 minimally dermal curette done without incident. Predebridement measurement was 0.7 x 1.5 x 0.1 cm. Postdebridement measurement is 0.8 x 1.6 x 0.1 cm. Post-Debridement Measurements and Additional Note: Post-Debridement Measurements/Treatment - Nurse 1 - General Ulcer Assessment Start: 08/31/24 14:38 Freq: Status: Active Protocol: WC.LOWEXT Activity Type Activity Date Activity User E-sign Co-sign Detail Recorded Client Recorded Date Recorded By Document 08/31/24 14:39 DL [id number] 08/31/24 14:44 DL 08/31/24 14:39 - Today's Visit Information Type of service Follow-up Visit (Physician/MEDICAL DEVICE ASSEMBLER ) Arrival Mode Wheelchair Transfer Assistance Manual Transfer Assist (Other) x1 Patient Identification Verified (Name & Yes ) Patient Requires Transmission-Based No Precautions Safety Precautions Fall Prevention Vital Signs Temperature (97.8 F-99.1 F) 97 F L Temperature Source Temporal Pulse Rate (60-100) 79 Pulse Location Monitor Respiratory Rate (12-18) 22 H Respiratory rate source Observation Blood Pressure (90/60-120/80) 129/78 H Blood Pressure Mean (mm Hg) 95 Source Monitor History Since Last Visit- (Skip if this [...] changes in pain level or No management Pain Scale: 0-10 Numeric Is Patient Pain Free? Yes WC - Nurse 1 - General Ulcer Measurement Start: 08/31/24 14:38 Freq: Status: Active Protocol: Activity Type Activity Date Activity User E-sign Co-sign Detail Recorded Client Recorded Date Recorded By Document 08/31/24 14:39 DL [id number] 08/31/24 14:44 DL 08/31/24 14:39 Wound Center Nurse 1 3-left foot -Current Size (cm) - Length 0.8 -Current Size (cm) - Width 1.6 -Current Size (cm) - Depth 0.2 -Total Square Cm 1.28 -Exudate Amt Medium -Exudate Type Serosanguineous -Wound Margin Distinct, Outline Attached -Granulation Amt None Present (0 %) -Necrosis Amt Large (67-100%) -Necrotic Tissue Type Adherent Slough -Structure Exposed N/A -Texture (Bell-wound Skin Appearance) Scarring -Moisture (Bell-wound Skin Appearance) Dry/Scaly -Color (Bell-wound Skin Appearance) Erythema -Temperature (Bell-wound Skin No Abnormality Appearance) (Pt Warm) -Ulcer Cleansing Rinsed/ Irrigated with Saline -Foul Odor after Cleansing No -Anesthetic Used 5% Lidocaine Gel #1- L MEDIAL ANKLE -Current Size (cm) - Length 1 -Current Size (cm) - Width 1 -Current Size (cm) - Depth 0.1 -Total Square Cm 1 -Exudate Amt Small -Wound Margin Distinct, Outline Attached -Structure Exposed N/A -Texture (Bell-wound Skin Appearance) Scarring -Moisture (Bell-wound Skin Appearance) Dry/Scaly -Color (Bell-wound Skin Appearance) No Abnormality -Temperature (Bell-wound Skin No Abnormality Appearance) (Pt Warm) -Tenderness on Palpation (Bell-wound No Skin Appearance) -Foul Odor after Cleansing No -Wound Comment(s) Epicord intact. left inplace. WC - Nurse 2 - General Ulcer CM Notes Start: 08/31/24 14:38 Freq: Status: Active Protocol: Activity Type Activity Date Activity User E-sign Co-sign Detail Recorded Client Recorded Date Recorded By Document 08/31/24 14:49 SONNY [id number] 08/31/24 14:52 JF 08/31/24 14:49 Wound Center Nurse 2 3-left foot -Time 14:49 -Correct Patient Yes -Correct Side, Site, Position Yes -Correct Procedure Yes -Procedure Performed Yes -Type of Procedure Debridement -Clinical Debridement Subcutaneous -Tissue Removed Subcutaneous -Post Debridement (cm) - Length 0.8 -Post Debridement (cm) - Width 1.6 -Post Debridement (cm) - Depth 0.1 -Total Square (Post) (cm) 1.28 -Area of Debridement (cm) - Length 0.8 -Area of Debridement (cm) - Width 1.3 -Total Square (Area) (cm) 1.04 -Tunneling No -Undermining/Tunneling No -Circular Undermining No -Wound/Ulcer Outcome Not Healed -Ulcer Cleansing Rinsed/ Irrigated with Saline -Foul Odor after Cleansing No -Bioengineered Tissue No -Bleeding Controlled with Pressure -Treatment Response Procedure Tolerated Well -Offloading No -Debridement - Subq, 1st 20sq cm Yes #1- L MEDIAL ANKLE -Correct Patient Yes -Correct Side, Site, Position No -Correct Procedure No -Procedure Performed No -Wound/Ulcer Outcome Not Healed Pain Scale: 0-10 Numeric Is Patient Pain [...] curette done without incident. Predebridement measurement was 0.7 x 1.5 x 0.1 cm. Postdebridement measurement is 0.8 x 1.6 x 0.1 cm. The full-thickness wound was wiped clean and patted dry. Triple antibiotic and AMD pad were applied. Patient was dispensed extra dressing supplies. The medial ankle full-thickness wound with graft application will remain clean dry and intact. They are not to change the graft at this time. They will continue with every other day dressing changes to the big toe joint dorsal full-thickness wound to the left foot. I did educate the patient and his that if we are still dealing with the same size wound at the end of August I will recommend referral and consultation with vascular surgery for potential intervention. Educated the patient on the importance of elevation to the bilateral lower extremity whenever he is at rest. He was understanding this. Educated the patient to keep the dressing clean dry and intact. Continue dietary supplements/Joon twice daily until follow-up. The patient will follow-up with with Dr. Blunt in 1 week [address] then [address] Dr. Mazariegos in 2 week. (2) Non-pressure chronic ulcer of other part of left foot with fat layer exposed: CODE(S): L97.522 - Non-pressure chronic ulcer of other part of left foot with fat layer exposed (3) Other specified peripheral vascular diseases: CODE(S): I73.89 - Other specified peripheral vascular diseases 08/31/24 1504 <Electronically signed by Rasta Mazariegos DPM> Cosigner Signature (if applicable): CC: ~ Signed [facility] Work Phone: 1(958) 419-411607-02-2025 History of Present illness Narrative* Click, Kailash Jerome APRN.MEDICAL DEVICE ASSEMBLER - 08/31/2024 1:30 PM EDT Images from the original note were not included. Pulmonary Medicine Patients name: Oswaldo Corley PCP: Mei Cummins MD CC: follow-up COPD HPI: Oswaldo Corley is a 84 year old male former 49-[id number]-xqjf smoker, quitting 2002 with PMH significant for [...] architectural distortion in the LEFT upper lobe. Rn Internal Medicine: ARTEM Transcribe Date/Time: Mar 16 2024 3:35P [...] Neut (k/uL) Date Value 07/18/2024 5.38 Abs Weld (k/uL) Date Value 07/18/2024 0.47 04/23/2021 0.57 Abs Eosin (k/uL) Date Value 07/18/2024 0.31 04/23/2021 0.09 Abs Baso (k/uL) Date Value 07/18/2024 0.04 04/23/2021 <0.03 IMMUNIZATIONS Prevnar - xx Pneumovax 23 - xx Influenza - 12/2023 COVID-19 - 12/2023 RSV- xx Review of Systems [...] edited and updated as necessary. Kailash Cordova APRN.CNP I spent a total of 21 minutes on the date of the service which included preparing to see the patient, [id number] patient care, completing clinical documentation, performing a medically appropriate examination, and counseling and educating the patient/family/caregiver. documented in this encounterMercy [facility]07-02-2025 NoteSum[facility]06-25-2025 Progress note Author Rasta Mazariegos [facility] Note Date/Time August 24, 2024 3:[address] [facility] [address] [place] [address] Progress Note - Wound Care 08/24/24 1541 MR#: [id number] Acct: [id number] Name: OSWALDO CORLEY Rep #:[id number] : 1940 84 From: Rasta Boykin PM PCP: Dr. Mei Cummins MD Status:[facility] Location: History of Present Illness Date of Service: 08/24/24 Chief Complaint: Left medial ankle ulcer History of Wound: Patient is a very pleasant 83 year old male with a left medialankle ulcer that he has been seeing airport clerk, Dr. Viveros. Patient has a significant history [...] He has been placing Santyl covered with [employer]. There has not been much improvement to this area. He states that he was referred to see us by [facility] and that Dr. Viveros also suggested [...] presenting to wound care center today for follow- up evaluation of left foot medial ankle ulceration [...] Start: 08/03/24 13:56 Freq: Status: Active Protocol: FABIAN.LOWEXT Activity Type Activity Date Activity User E-sign Co-sign Detail Recorded Client Recorded Date Recorded By Document 08/03/24 13:57 MT [id number] 08/03/24 14:04 MT Document 08/10/24 13:57 [id number] 08/10/24 14:02 Document 08/17/24 14:00 MT [id number] 08/17/24 14:05 MT Document 08/24/24 14:21 KW [id number] 08/24/24 14:32 KW 08/03/24 08/10/24 08/17/24 13:57 13:57 14:00 - Today's Visit Information Type of service Follow-up Visit Follow-up Visit Follow-up Visit (Physician/MEDICAL DEVICE ASSEMBLER (Physician/MEDICAL DEVICE ASSEMBLER (Physician/MEDICAL DEVICE ASSEMBLER ) ) ) Arrival Mode Ambulatory Wheelchair [...] Pain Free? Yes Yes Yes 08/24/24 14:21 - Today's Visit Information Type of service Follow-up Visit (Physician/MEDICAL DEVICE ASSEMBLER ) Arrival Mode Wheelchair Accompanied by Patient [...] Date Recorded By Document 08/03/24 13:57 MT [id number] 08/03/24 14:04 MT Document 08/10/24 13:57 [id number] 08/10/24 14:02 Document 08/17/24 14:00 MT [id number] 08/17/24 14:05 MT Document 08/24/24 14:21 KW [id number] 08/24/24 14:32 KW 08/03/24 08/10/24 08/17/24 13:57 [...] (34-66%) None Present (0 %) -Granulation Quality Pale,Modena Red -Slough/Fibrin Yes No -Necrosis Amt Small [...] Present (0 Small (1-33%) %) -Granulation Quality Pale,Modena Pale,Modena -Slough/Fibrin Yes -Necrosis Amt Medium (34-66%) Large [...] Under -Granulation Amt Small (1-33%) -Granulation Quality Modena -Slough/Fibrin -Necrosis Amt Large (67-100%) -Necrotic Tissue [...] Recorded Date Recorded By Document 08/03/24 14:12 JF [id number] 08/03/24 14:21 JF Edit Result 08/03/24 14:12 JF (1) 000 08/09/24 15:06 JF Document 08/10/24 14:05 JF [id number] 08/10/24 14:12 JF Document 08/17/24 14:14 JF [id number] 08/17/24 14:19 JF Document 08/24/24 14:53 DS [id number] 08/24/24 14:57 DS Edit Result 08/24/24 14:53 DS (2) [id number] 08/24/24 14:59 DS Edit Result 08/24/24 14:53 DS (3) [id number] 08/24/24 15:38 DS (1) #1- L MEDIAL [...] Date 10/31/28 10/31/28 11/30/28 -Product Lot Number [id number] 002 002 -Percent Used 100 100 100 -Lot number of Saline Used [id number] -Bleeding Controlled with Pressure Pressure Pressure -Treatment [...] Epicord -Expiration Date 12/31/28 -Product Lot Number [id number] -Percent Used 100 -Lot number of Saline Used [id number] -Bleeding Controlled with Pressure -Treatment Response Procedure [...] Date Recorded By Document 08/03/24 14:38 MT [id number] 08/03/24 14:39 MT Document 08/10/24 14:23 DL [id number] 08/10/24 14:24 DL Document 08/17/24 14:29 ML [id number] 08/17/24 14:29 ML Document 08/24/24 15:06 KW [id number] 08/24/24 15:07 KW Edit Result 08/24/24 15:06 KW (1) [id number] 08/24/24 15:13 KW (1) 3-left foot - [...] dressing clean dry and intact. Continue dietary supplements/Ojon twice daily until follow-up. The patient will follow-up with Dr. Mazariegos in 1 week. (2) Non-pressure chronic ulcer of other part of left foot with fat layer exposed: CODE(S): L97.522 - Non-pressure chronic ulcer of other part of left foot with fat layer exposed (3) Other specified peripheral vascular diseases: CODE(S): I73.89 - Other specified peripheral vascular diseases 08/24/24 1546 <Electronically signed by Rasta Mazariegos DPM> Cosigner Signature (if applicable): CC: ~ Signed [facility] Work Phone: 1(956) 323-231406-18-2025 Progress note Author Rasta Mazariegos [facility] Note Date/Time August 17, 2024 3:09 pm [facility] [address] [place] [address] Progress Note - Wound Care 08/17/24 1508 MR#: [id number] Acct: [id number] Name: OSWALDO CORLEY Rep #:[id number] : 1940 84 From: Rasta Boykin PM PCP: Dr. Mei Cummins MD Status:RE G RCR Location: History of Present Illness Date of Service: 08/17/24 Chief Complaint: Left medial ankle ulcer History of Wound: Patient is a very pleasant 83 year old male with a left medialankle ulcer that he has been seeing airport clerk, Dr. Viveros. Patient has a significant history [...] He has been placing Santyl covered with [employer]. There has not been much improvement to this area. He states [facility] also suggested [...] Start: 08/03/24 13:56 Freq: Status: Active Protocol: CEEEXT Activity Type Activity Date Activity User E-sign Co-sign Detail Recorded Client Recorded Date Recorded By Document 08/03/24 13:57 TX [id number] 08/03/24 14:04 TX Document 08/10/24 13:57 [id number] 08/10/24 14:02 Document 08/17/24 14:00 TX [id number] 08/17/24 14:05 TX 08/03/24 08/10/24 08/17/24 13:57 13:57 14:00 - Today's Visit Information Type of service Follow-up Visit Follow-up Visit Follow-up Visit (Physician/MEDICAL DEVICE ASSEMBLER (Physician/MEDICAL DEVICE ASSEMBLER (Physician/MEDICAL DEVICE ASSEMBLER ) ) ) Arrival Mode Ambulatory Wheelchair [...] Recorded Date Recorded By Document 08/03/24 13:57 TX [id number] 08/03/24 14:04 TX Document 08/10/24 13:57 [id number] 08/10/24 14:02 Document 08/17/24 14:00 TX [id number] 08/17/24 14:05 TX 08/03/24 08/10/24 08/17/24 13:57 13:57 14:00 Wound [...] (34-66%) None Present (0 %) -Granulation Quality Pale,Modena Red -Slough/Fibrin Yes No -Necrosis Amt Small [...] Present (0 Small (1-33%) %) -Granulation Quality Pale,Modena Pale,Modena -Slough/Fibrin Yes -Necrosis Amt Medium (34-66%) Large [...] Date Recorded By Document 08/03/24 14:12 SONNY [id number] 08/03/24 14:21 Edit Result 08/03/24 14:12 JF (1) 000 08/09/24 15:06 JF Document 08/10/24 14:05 SONNY [id number] 08/10/24 14:12 Document 08/17/24 14:14 SONNY [id number] 08/17/24 14:19 JF (1) #1- L MEDIAL [...] Date 10/31/28 10/31/28 11/30/28 -Product Lot Number [id number] 002 002 -Percent Used 100 100 100 -Lot number of Saline Used [id number] -Bleeding Controlled with Pressure Pressure Pressure -Treatment [...] Date Recorded By Document 08/03/24 14:38 MT [id number] 08/03/24 14:39 MT Document 08/10/24 14:23 DL [id number] 08/10/24 14:24 DL Document 08/17/24 14:29 ML [id number] 08/17/24 14:29 ML 08/03/24 08/10/24 08/17/24 14:38 [...] Cosigner Signature (if applicable): CC: ~ Signed [facility] Work Phone: 1(422) 945-421906-11-2025 Progress note Author Rasta Mazariegos [facility] Note Date/Time August 10, 2024 2:34 pm [facility] [address] [place] [address] Progress Note - Wound Care 08/10/24 1429 MR#: [id number] Acct: [id number] Name: OSWALDO CORLEY Rep #:[id number] : 1940 84 From: Rasta Boykin PM PCP: Dr. Mei Cummins MD Status:RE G RCR Location: History of Present Illness Date of Service: 08/10/24 Chief Complaint: Left medial ankle ulcer History of Wound: Patient is a very pleasant 83 year old male with a left medialankle ulcer that he has been seeing airport clerk, Dr. Viveros. Patient has a significant history [...] He has been placing Santyl covered with [employer]. There has not been much improvement to this area. He states that he was referred to see us by [facility] and that Dr. Viveros also suggested [...] Start: 08/03/24 13:56 Freq: Status: Active Protocol: FABIAN.LOWEXT Activity Type Activity Date Activity User E-sign Co-sign Detail Recorded Client Recorded Date Recorded By Document 08/03/24 13:57 TX [id number] 08/03/24 14:04 TX Document 08/10/24 13:57 [id number] 08/10/24 14:02 08/03/24 08/10/24 13:57 13:57 - Today's Visit Information Type of service Follow-up Visit Follow-up Visit (Physician/MEDICAL DEVICE ASSEMBLER (Physician/MEDICAL DEVICE ASSEMBLER ) ) Arrival Mode Ambulatory Wheelchair Accompanied [...] Patient Pain Free? Yes Yes - Nurse 1 - General Ulcer Measurement Start: 08/03/24 13:56 Freq: Status: Active Protocol: Activity Type Activity Date Activity User E-sign Co-sign Detail Recorded Client Recorded Date Recorded By Document 08/03/24 13:57 TX [id number] 08/03/24 14:04 TX Document 08/10/24 13:57 [id number] 08/10/24 14:02 08/03/24 08/10/24 13:57 13:57 Wound [...] Amt Large (67-100%) Medium (34-66%) -Granulation Quality Pale,Modena Red -Slough/Fibrin Yes -Necrosis Amt Small (1-33%) [...] (67-100%) None Present (0 %) -Granulation Quality Pale,Modena -Slough/Fibrin Yes -Necrosis Amt Medium (34-66%) Large [...] Date Recorded By Document 08/03/24 14:12 SONNY [id number] 08/03/24 14:21 Edit Result 08/03/24 14:12 SONNY (1) 000 08/09/24 15:06 JF Document 08/10/24 14:05 SONNY [id number] 08/10/24 14:12 SONNY (1) #1- L MEDIAL ANKLE - Apply [...] -Expiration Date 10/31/28 10/31/28 -Product Lot Number [id number] -Percent Used 100 100 -Lot number of Saline Used [id number] -Bleeding Controlled with Pressure Pressure -Treatment Response [...] Date Recorded By Document 08/03/24 14:38 MT [id number] 08/03/24 14:39 MT Document 08/10/24 14:23 DL [id number] 08/10/24 14:24 DL 08/03/24 08/10/24 14:38 14:23 [...] - Other specified peripheral vascular diseases 08/10/24 9382 <Electronically signed by Rasta Mazariegos DPM> Cosigner Signature (if applicable): CC: ~ Signed [facility] Work Phone: 1(724) 656-556606-09-2025 Telephone encounter Note* Telephone Encounter - Tyrell Lamar LPN - 08/08/2024 9:29 AM EDT [facility] 06/24/24 Patient phones requesting refills as follows: Requested Prescriptions Pending Prescriptions Disp Refills SPIRIVA RESPIMAT 2.5 mcg/actuation inhaler 1 each 5 Sig: Inhale 2 puffs as instructed once daily. Please review and advise. Tyrell Lamar LPN [facility]06-09-[facility] Miscellaneous Notes* Telephone Encounter - Tyrell Lamar LPN - 08/08/2024 9:29 AM EDT [facility] 06/24/24 Patient phones requesting refills as follows: Requested Prescriptions Pending Prescriptions Disp Refills SPIRIVA RESPIMAT 2.5 mcg/actuation inhaler 1 each 5 Sig: Inhale 2 puffs as instructed once daily. Please review and advise. Tyrell Lamar LPN documented in this encounterMercy Hospital06-04-2025 Progress note Author Rasta Mazariegos [facility] Note Date/Time August 03, 2024 2:39p m [facility] [address] [place] [address] Progress Note - Wound Care 08/03/24 1433 MR#: [id number] Acct: [id number] Name: OSWALDO CORLEY Rep #:[id number] : 1940 84 From: Rasta Boykin PM PCP: Dr. Mei Cummins MD Status:RE G RCR Location: History of Present Illness Date of Service: 08/03/24 Chief Complaint: Left medial ankle ulcer History of Wound: Patient is a very pleasant 83 year old male with a left medialankle ulcer that he has been seeing airport clerk, Dr. Viveros. Patient has a significant history [...] He has been placing Santyl covered with [employer]. There has not been much improvement to this area. He states that [facility]iveros also suggested [...] Start: 08/03/24 13:56 Freq: Status: Active Protocol: WC.LOWEXT Activity Type Activity Date Activity User E-sign Co-sign Detail Recorded Client Recorded Date Recorded By Document 08/03/24 13:57 TX [id number] 08/03/24 14:04 TX 08/03/24 13:57 - Today's Visit Information Type of service Follow-up Visit (Physician/MEDICAL DEVICE ASSEMBLER ) Arrival Mode Ambulatory Accompanied by Patient [...] Recorded Date Recorded By Document 08/03/24 13:57 TX [id number] 08/03/24 14:04 TX 08/03/24 13:57 Wound Center Nurse 1 3-left foot -Current Size (cm) - Length 0.7 -Current Size (cm) - Width 2.0 -Current Size (cm) - Depth 0.1 -Total Square Cm 1.40 -Photo Taken No -Tunneling No -Undermining/Tunneling No -Circular Undermining No -Exudate Amt Medium -Exudate Type Purulent -Wound Margin Flat & Intact -Granulation Amt Large (67-100%) -Granulation Quality Pale,Modena -Necrosis Amt Small (1-33%) -Necrotic Tissue Type [...] Intact -Granulation Amt Large (67-100%) -Granulation Quality Pale,Modena -Necrosis Amt Medium (34-66%) -Necrotic Tissue Type [...] Date Recorded By Document 08/03/24 14:12 SONNY [id number] 08/03/24 14:21 SONNY 08/03/24 14:12 Wound Center [...] Epicord -Expiration Date 10/31/28 -Product Lot Number [id number] -Percent Used 100 -Lot number of Saline Used [id number] -Bleeding Controlled with Pressure -Treatment Response Procedure [...] recommend the patient to vascular surgery with [facility] for further workup and evaluation and [...] Cosigner Signature (if applicable): CC: ~ Signed [facility] Work Phone: 1(100) 863-681306-02-2025 Instructions* Patient Instructions* Bela Manzano MD - 08/01/2024 1:30 PM EDT We are stopping the metoprolol documented in this encounterMercy Hospital06-02-2025 History of Present illness Narrative* Bela Manzano MD - 08/01/2024 1:00 PM EDT Images from the original note were not included. [facility]AL CARDIOLOGY Cardiology ([facility]) [address] [facility] [id number] OUTPATIENT VISIT DATE 08/01/2024 PRIMARY CARE PHYSICIAN: Mei Cummins [address] [place] [address] HISTORY OF PRESENT ILLNESS: Mr. Corley is [...] Laterality Date ANGIOGRAM EXTREMITY COLONOSCOPY N/A 09/29/2023 [facility] COLONOSCOPY N/A 10/07/2023 [facility] EGD W/O [facility] SPEC VARICIES INJ N/A 09/29/2023 [facility] EGD W/O [facility] SPEC VARICIES INJ N/A 10/07/2023 [facility] EGD W/O [facility] SPEC VARICIES INJ N/A 06/04/2024 [facility] LUNG BIOPSY Left needle biopsy [...] OM2. The OM2 fills competitively from the [place] LCX and the SVG. RCA: Dominant vessel [...] Gated Stress IR:3D LVEF % [address] [facility] 03/25/2023: Normal LV size. Estimated [...] artery disease prior coronary bypass grafting in 2000, COLEMAN-LAD, FRANCIA-RCA, SVG-left circumflex/OM). 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 He underwent stenting of the left maincoronary artery. Most recent cardiac catheterization 2016 as [...] AND RECOMMENDATIONS:\ 1. Coronary artery 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 [place] heart without angina pectoris- ICD9: 414.01, ICD10: [...] I71.40 Bela Manzano MD documented in this encounterMercy Hospital06-02-2025 NoteSum[facility]05-28-2025 Progress note Author Rasta Mazariegos [facility] Note Date/Time July 27, 2024 6:57p m [facility] [address] [place] [address] Progress Note - Wound Care 07/27/24 1849 MR#: [id number] Acct: [id number] Name: OSWALDO CORLEY Rep #:[id number] : 1940 84 From: Rasta Boykin PM PCP: Dr. Mei Cummins MD Status:RE G R Location: History of Present Illness Date of Service: 07/27/24 Chief Complaint: Left medial ankle ulcer History of Wound: Patient is a very pleasant 83 year old male with a left medialankle ulcer that he has been seeing airport clerk, Dr. Viveros. Patient has a significant history [...] He has been placing Santyl covered with [employer]. There has not been much improvement to this area. He states that he was referred to see us by [facility] and that Dr. Viveros also suggested [...] Date Recorded By Document 07/06/24 14:11 MT [id number] 07/06/24 14:21 MT Document 07/13/24 14:06 RB [id number] 07/13/24 14:09 RB Document 07/20/24 13:47 DL [id number] 07/20/24 13:58 DL Document 07/27/24 10:58 KW [id number] 07/27/24 11:05 KW 07/06/24 07/13/24 07/20/24 14:11 14:06 13:47 - Today's Visit Information Type of service Follow-up Visit Follow-up Visit Follow-up Visit (Physician/MEDICAL DEVICE ASSEMBLER (Physician/MEDICAL DEVICE ASSEMBLER (Physician/MEDICAL DEVICE ASSEMBLER ) ) ) Arrival Mode Ambulatory Wheelchair [...] Visit Information Type of service Follow-up Visit (Physician/MEDICAL DEVICE ASSEMBLER ) Arrival Mode Wheelchair Transfer Assistance Accompanied [...] Date Recorded By Document 07/06/24 14:11 MT [id number] 07/06/24 14:21 MT Document 07/13/24 14:06 RB [id number] 07/13/24 14:09 RB Document 07/20/24 13:47 DL [id number] 07/20/24 13:58 DL Document 07/27/24 10:58 KW [id number] 07/27/24 11:05 KW Edit Result 07/27/24 10:58 KW (1) [id number] 07/27/24 11:06 KW (1) 3-left foot - [...] Intact -Granulation Amt Large (67-100%) -Granulation Quality Pale,Modena -Texture (Bell-wound Skin Appearance) Assessed -Moisture (Bell-wound [...] Attached -Granulation Amt Small (1-33%) -Granulation Quality Modena -Necrosis Amt Large (67-100%) -Necrotic Tissue Type [...] (34-66%) None Present (0 %) -Granulation Quality Pale,Modena Modena -Slough/Fibrin Yes -Necrosis Amt Large (67-100%) Small [...] Thickened -Granulation Amt Small (1-33%) -Granulation Quality Modena -Necrosis Amt Large (67-100%) -Necrotic Tissue Type [...] Thickened -Granulation Amt Small (1-33%) -Granulation Quality Modena -Slough/Fibrin -Necrosis Amt Large (67-100%) -Necrotic Tissue [...] Recorded Date Recorded By Document 07/06/24 14:32 [id number] 07/06/24 14:39 JF Document 07/13/24 14:14 JF [id number] 07/13/24 14:25 Edit Result 07/13/24 14:14 JF (1) 000 07/19/24 11:58 JF Document 07/20/24 14:07 [id number] 07/20/24 14:11 Document 07/27/24 11:23 [id number] 07/27/24 11:32 JF (1) #1- L MEDIAL [...] Date 10/31/28 01/30/29 10/31/28 -Product Lot Number [id number] 001 -Percent Used 100 505 100 -Lot number of Saline Used [id number] -Bleeding Controlled with Pressure Pressure Pressure -Treatment [...] Disc -Expiration Date 01/30/29 -Product Lot Number [id number] -Percent Used 100 -Lot number of Saline Used [id number] -Bleeding Controlled with Pressure -Treatment Response Procedure [...] Date Recorded By Document 07/06/24 14:48 KW [id number] 07/06/24 14:48 KW Document 07/13/24 14:34 ML [id number] 07/13/24 14:36 ML Document 07/20/24 14:20 KW [id number] 07/20/24 14:20 KW Document 07/27/24 11:42 DL [id number] 07/27/24 11:45 DL 07/06/24 07/13/24 07/20/24 14:48 [...] 6x6 -Wound Comment(s) Dressing applied per Jhonatan gomez. LLE -Tubular Bandage Single Layer -Size of [...] Cosigner Signature (if applicable): CC: ~ Signed [facility] Work Phone: 1(673) 816-144505-22-2025 NoteSum[facility]05-21-2025 Progress note Author Rasta Mazariegos [facility] Note Date/Time 2024 2:32p m [facility] [address] [place] [address] Progress Note - Wound Care 07/20/24 1427 MR#: [id number] Acct: [id number] Name: OSWALDO CORLEY Rep #:[id number] : 1940 84 From: Rasta Boykin PM PCP: Dr. Mei Cummins MD Status:RE G RCR Location: History of Present Illness Date of Service: 07/20/24 Chief Complaint: Left medial ankle ulcer History of Wound: Patient is a very pleasant 83 year old male with a left medialankle ulcer that he has been seeing airport clerk, Dr. Viveros. Patient has a significant history [...] He has been placing Santyl covered with [employer]. There has not been much improvement to this area. He states that he was referred to see us by [facility] and that Dr. Viveros also suggested [...] was applied to the left full-thickness ulceration veqz626% use. Fifth application. The graft site was [...] was applied to the left full-thickness ulceration vdlt306% use. Fifth application. The graft site was [...] Start: 07/06/24 14:11 Freq: Status: Active Protocol: .LOWEXT Activity Type Activity Date Activity User E-sign Co-sign Detail Recorded Client Recorded Date Recorded By Document 07/06/24 14:11 MT [id number] 07/06/24 14:21 MT Document 07/13/24 14:06 RB [id number] 07/13/24 14:09 RB Document 07/20/24 13:47 DL [id number] 07/20/24 13:58 DL 07/06/24 07/13/24 07/20/24 14:11 14:06 13:47 - Today's Visit Information Type of service Follow-up Visit Follow-up Visit Follow-up Visit (Physician/MEDICAL DEVICE ASSEMBLER (Physician/MEDICAL DEVICE ASSEMBLER (Physician/MEDICAL DEVICE ASSEMBLER ) ) ) Arrival Mode Ambulatory Wheelchair [...] Date Recorded By Document 07/06/24 14:11 MT [id number] 07/06/24 14:21 MT Document 07/13/24 14:06 RB [id number] 07/13/24 14:09 RB Document 07/20/24 13:47 DL [id number] 07/20/24 13:58 DL 07/06/24 07/13/24 07/20/24 14:11 [...] Intact -Granulation Amt Large (67-100%) -Granulation Quality Pale,Modena -Texture (Bell-wound Skin Appearance) Assessed -Moisture (Bell-wound [...] Attached -Granulation Amt Small (1-33%) -Granulation Quality Modena -Necrosis Amt Large (67-100%) -Necrotic Tissue Type [...] (34-66%) None Present (0 %) -Granulation Quality Pale,Modena Modena -Slough/Fibrin Yes -Necrosis Amt Large (67-100%) Small [...] Recorded Date Recorded By Document 07/06/24 14:32 [id number] 07/06/24 14:39 Document 07/13/24 14:14 [id number] 07/13/24 14:25 Edit Result 07/13/24 14:14 JF (1) 000 07/19/24 11:58 Document 07/20/24 14:07 [id number] 07/20/24 14:11 (1) #1- L MEDIAL ANKLE - Apply [...] Date 10/31/28 01/30/29 10/31/28 -Product Lot Number [id number] 001 -Percent Used 100 505 100 -Lot number of Saline Used [id number] -Bleeding Controlled with Pressure Pressure Pressure -Treatment [...] Date Recorded By Document 07/06/24 14:48 KW [id number] 07/06/24 14:48 KW Document 07/13/24 14:34 ML [id number] 07/13/24 14:36 ML Document 07/20/24 14:20 KW [id number] 07/20/24 14:20 KW 07/06/24 07/13/24 07/20/24 14:48 [...] was applied to the left full-thickness ulceration aghj113% use. Fifth application. The graft site was [...] Cosigner Signature (if applicable): CC: ~ Signed [facility] Work Phone: 1(966) 973-894105-19-2025 Telephone encounter Note* Telephone Encounter - Leslie French - 07/18/2024 9:30 AM EDT Patient is scheduled to come in today, 07/18/24 Leslie Flores [facility]05-19-2025 Miscellaneous Notes* Telephone Encounter - Leslie French - 07/18/2024 9:30 AM EDT Patient is scheduled to come in today, 07/18/24 Leslie Flores * Telephone Encounter - Salazar Meraz DO - 07/14/2024 5:26 PM EDT Currently scheduled for lab work on 07/27. Can do it tomorrow or early next week. Can see what is best for him and Christina. Salazar Meraz DO documented in this encounterMercy Hospital05-16-2025 Miscellaneous Notes* Telephone Encounter - Salazar Meraz DO - 07/15/2024 5:40 PM EDT I spoke with Dr. Otoole. * Telephone Encounter - Annabella Chiang LPN - 07/15/2024 2:[address] Otoole [facility] would like to speak with you concerning this pt. Please call on his cell # [phone]. Annabella Chiang LPN documented in this encounterMercy Hospital05-16-2025 Telephone encounter Note * Telephone Encounter - Salazar Meraz DO - 07/15/2024 5:40 PM EDT I spoke with Dr. Otoole. [facility]05-16-2025 Telephone encounter Note* Telephone Encounter - Annabella Chiang LPN - 07/15/2024 2:[address] Otoole [facility] would like to speak with you concerning this pt. Please call on his cell # [phone]. Annabella Chiang LPN [facility]05-16-2025 Telephone encounter Note* Telephone Encounter - Sylvie Ortega - 07/15/2024 11:02 AM EDT This has been rescheduled lvm to inform pt. Sylvie Ortega [facility]05-16-2025 Miscellaneous Notes* Telephone Encounter - Sylvie Ortega - 07/15/2024 11:02 AM EDT This has been rescheduled lvm to inform pt. Sylvie Ortega * Telephone Encounter - Laura Cabral RN - 07/15/2024 10:19 AM EDT PSS's- would you please move Bills lab appointment to Thursday07/18/24? His was in today and asked that we move it up for pt convenience. documented in this encounterMercy Hospital05-16-2025 Telephone encounter Note * Telephone Encounter - Laura Cabral RN - 07/15/2024 10:19 AM EDT PSS's- would you please move Bills lab appointment to Thursday07/18/24? His was in today and asked that we move it up for pt convenience. [facility]05-15-2025 Telephone encounter Note* Telephone Encounter - Salazar Meraz DO - 07/14/2024 5:26 PM EDT Currently scheduled for lab work on 07/27. Can do it tomorrow or early next week. Can see what is best for him and Christina. Salazar Meraz DO [facility]05-14-2025 Progress note Author Rasta Mazariegos [facility] Note Date/Time July 13, 2024 3:02p [facility] [address] [place] [address] Progress Note - Wound Care 07/13/24 1456 MR#: [id number] Acct: [id number] Name: OSWALDO CORLEY Rep #:[id number] : 1940 83 From: Rasta Boykin PM PCP: Dr. Mei Cummins MD Status:RE G RCR Location: History of Present Illness Date of Service: 07/13/24 Chief Complaint: Left medial ankle ulcer History of Wound: Patient is a very pleasant 83 year old male with a left medialankle ulcer that he has been seeing airport clerk, Dr. Viveros. Patient has a significant history [...] He has been placing Santyl covered with [employer]. There has not been much improvement to this area. [facility] also suggested [...] Start: 07/06/24 14:11 Freq: Status: Active Protocol: FABIAN.LOWEXT Activity Type Activity Date Activity User E-sign Co-sign Detail Recorded Client Recorded Date Recorded By Document 07/06/24 14:11 TX [id number] 07/06/24 14:21 MT Document 07/13/24 14:06 RB [id number] 07/13/24 14:09 RB 07/06/24 07/13/24 14:11 14:06 - Today's Visit Information Type of service Follow-up Visit Follow-up Visit (Physician/MEDICAL DEVICE ASSEMBLER (Physician/MEDICAL DEVICE ASSEMBLER ) ) Arrival Mode Ambulatory Wheelchair Transfer [...] Date Recorded By Document 07/06/24 14:11 MT [id number] 07/06/24 14:21 MT Document 07/13/24 14:06 RB [id number] 07/13/24 14:09 RB 07/06/24 07/13/24 14:11 14:06 Wound Center Nurse 1 #2 L LAT HEEL -Current Size (cm) - Length 2 -Current Size (cm) - Width 0.7 -Current Size (cm) - Depth 0.1 -Total Square Cm 1.4 -Photo Taken No -Tunneling No -Undermining/Tunneling No -Circular Undermining No -Exudate Amt None Present -Wound Margin Flat & Intact -Granulation Amt Large (67-100%) -Granulation Quality Pale,Modena -Texture (Bell-wound Skin Appearance) Assessed -Moisture (Bell-wound [...] Amt Small (1-33%) Medium (34-66%) -Granulation Quality Pale,Modena Modena -Slough/Fibrin Yes -Necrosis Amt Large (67-100%) Small [...] Recorded Date Recorded By Document 07/06/24 14:32 JF [id number] 07/06/24 14:39 Document 07/13/24 14:14 JF [id number] 07/13/24 14:25 JF 07/06/24 07/13/24 14:32 14:14 [...] -Expiration Date 10/31/28 01/30/29 -Product Lot Number [id number] -Percent Used 100 505 -Lot number of Saline Used [id number] -Bleeding Controlled with Pressure Pressure -Treatment Response [...] Date Recorded By Document 07/06/24 14:48 KW [id number] 07/06/24 14:48 KW Document 07/13/24 14:34 ML [id number] 07/13/24 14:36 ML 07/06/24 07/13/24 14:48 14:34 [...] Is Patient Pain Free? Yes Yes - Visit Discharge Discharge Condition Stable Ambulatory [...] 07/13/24 1502 <Electronically signed by Rasta Mazariegos DPM> Cosigner Signature (if applicable): CC: ~ Signed [facility] Work Phone: 1(155) 181-443405-07-2025 Progress note Author Rasta Mazariegos [facility] Note Date/Time July 06, 2024 2:44pm [facility] [address] [place] [address] Progress Note - Wound Care 07/06/24 1441 MR#: [id number] Acct: [id number] Name: OSWALDO CORLEY Rep #:[id number] : 1940 83 From: Rasta Boykin PM PCP: Dr. Mei Cummins MD Status:RE G RCR Location: History of Present Illness Date of Service: 07/06/24 Chief Complaint: Left medial ankle ulcer History of Wound: Patient is a very pleasant 83 year old male with a left medialankle ulcer that he has been seeing airport clerk, Dr. Viveros. Patient has a significant history [...] He has been placing Santyl covered with [employer]. There has not been much improvement to this area. He states that he was referred to see us by [facility] and that Dr. Viveros also suggested [...] Recorded Date Recorded By Document 07/06/24 14:11 TX [id number] 07/06/24 14:21 TX 07/06/24 14:11 - Today's Visit Information Type of service Follow-up Visit (Physician/MEDICAL DEVICE ASSEMBLER ) Arrival Mode Ambulatory Accompanied by Patient [...] Recorded Date Recorded By Document 07/06/24 14:11 TX [id number] 07/06/24 14:21 TX 07/06/24 14:11 Wound Center Nurse 1 #2 L LAT HEEL -Current Size (cm) - Length 2 -Current Size (cm) - Width 0.7 -Current Size (cm) - Depth 0.1 -Total Square Cm 1.4 -Photo Taken No -Tunneling No -Undermining/Tunneling No -Circular Undermining No -Exudate Amt None Present -Wound Margin Flat & Intact -Granulation Amt Large (67-100%) -Granulation Quality Pale,Modena -Texture (Bell-wound Skin Appearance) Assessed -Moisture (Bell-wound [...] Under -Granulation Amt Small (1-33%) -Granulation Quality Pale,Modena -Necrosis Amt Large (67-100%) -Necrotic Tissue Type [...] Date Recorded By Document 07/06/24 14:32 SONNY [id number] 07/06/24 14:39 SONNY 07/06/24 14:32 Wound Center [...] Epicord -Expiration Date 10/31/28 -Product Lot Number [id number] -Percent Used 100 -Lot number of Saline Used [id number] -Bleeding Controlled with Pressure -Treatment Response Procedure [...] - Other specified peripheral vascular diseases 07/06/24 2184 <Electronically signed by Rasta Mazariegos DPM> Cosigner Signature (if applicable): CC: ~ Signed [facility] Work Phone: 1(852) 142-752605-02-2025 History of Present illness Narrative* Mei Cummins MD - 07/01/2024 2:00 PM EDT Chief Complaint Patient presents with: Follow Up HPI Oswaldo Corley is a 83 year old male who presents here today for a 6 month follow up. Pt here with his for his routine follow up, generally seen every 3 months. Pt has been admitted into [facility] with multiple admissions due to [...] on continuous O2, using 4-5 L. Uses [employer] for DME supplies. Cardio - Hx of [...] rechecking labs later this month to monitor. HM - Has Adv Dir/Living Will on file. [...] Laterality Date ANGIOGRAM EXTREMITY COLONOSCOPY N/A 09/29/2023 [facility] COLONOSCOPY N/A 10/07/2023 [facility] EGD W/O [facility] SPEC VARICIES INJ N/A 09/29/2023 [facility] EGD W/O [facility] SPEC VARICIES INJ N/A 10/07/2023 [facility] LUNG BIOPSY Left needle biopsy [...] Advance Directive Discussion due on 03/02/2024 Covid-19 Vaccine() due on 06/22/2024 LDL Cholesterol due on [...] 0.42 (L) Monocytes % 06/13/2024 4.4 Abs Weld 06/13/2024 0.34 Eosinophils % 06/13/2024 0.4 Abs [...] regular exercise 7. 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 Vickie Carrillo MA documented in this encounterMercy Hospital05-02-2025 NoteSum[facility]04-25-2025 NoteSum[facility]04-23-2025 Telephone encounter Note* Telephone Encounter - Shala Gamble LISW - 06/22/2024 8:54 AM EDT Pt noted on [facility] 1st time treatment report. Pt has a non-oncology regimen. No social work followup indicated. YAMILA Oh-Tuan [facility]04-23-2025 Miscellaneous Notes* Telephone Encounter - Shala Gamble LISW - 06/22/2024 8:54 AM EDT Pt noted on [facility] 1st time treatment report. Pt has a non-oncology regimen. No social work followup indicated. YAMILA Oh-S documented in this encounterMercy Hospital04-11-2025 Telephone encounter Note * Telephone Encounter - Ziggyracheal Mark Alethea - 06/10/2024 9:15 AM EDT Scheduled lab with spouse [facility] Work Phone: 1(123) 968-931604-11-2025 Miscellaneous Notes* Telephone Encounter - Ziggyracheal MarkAlethea - 06/10/2024 9:15 AM EDT Scheduled lab [...] review. Vickie Carrillo MA documented in this encounterMercy Hospital04-11-2025 Telephone encounter Note * Telephone Encounter - Salazar Meraz DO - 06/10/2024 8:43 AM EDT Filed. [facility]04-11-2025 Telephone encounter Note* Telephone Encounter - Donna Bell LPN - 06/10/2024 8:26 AM EDT Please assist with lab apt for CBC possible transfusion, iron studies and retic count. Orders pended. Donna Bell LPN [facility]04-10-2025 Telephone encounter Note* Telephone Encounter - Salazar Meraz DO - 06/09/2024 4:05 PM EDT CBC/poss trans/Iron studies and retic count on Thursday. Salazar Meraz DO [facility]04-10-2025 Telephone encounter Note* Telephone Encounter - Vickie Carrillo MA - 06/09/2024 9:33 AM EDT Review pt message. Did recommend reaching out to Dr. Meraz since he's the prescribing Provider. Notified pt that mychart message would be routed to Dr. Meraz and PCP to review. Vickie Carrillo MA [facility]04-10-2025 Telephone encounter Note* Telephone Encounter - Jamshid Brown APRN.MEDICAL DEVICE ASSEMBLER - 06/09/2024 6:05 AM EDT The following approved medication requests have been transmitted electronically. Requested Prescriptions Pending Prescriptions Disp Refills nitroglycerin sublingual (NITROSTAT) 0.4 mg SL tablet 25 tablet 1 Sig: Dissolve 1 tablet under the tongue every 5 minutes as needed. Jamshid Brown APRN.CNP [facility]04-10-2025 Miscellaneous Notes* Telephone Encounter - Jamshid [...] 08, 2024 1:16 PM documented in this encounterMercy Hospital04-09-2025 Telephone encounter Note * Telephone Encounter [...] Kumari LPN June 08, 2024 1:16 PM [facility]04-08-2025 Telephone encounter Note* Telephone Encounter - Mei Cummins MD - 06/07/2024 4:43 PM EDT Noted Mei Cummins MD [facility]04-08-2025 Miscellaneous Notes* Telephone Encounter - Mei Cummins MD - 06/07/2024 4:43 PM EDT Noted Mei Cummins MD * Telephone Encounter - Yina Magana RN - 06/07/2024 3:12 PM EDT Jeremiah [facility] called in and reports they resumed care [...] Manzano.. Yina Magana RN documented in this encounterMercy Hospital04-08-2025 Telephone encounter Note * Telephone Encounter - Yina Magana RN - 06/07/2024 3:12 PM EDT Jeremiah [facility] called in and reports they resumed care [...] ordered by Dr Manzano.. Yina Magana RN [facility]04-06-2025 Discharge summary [facility] Note Date/Time June 05, 2024 11:4 7am [facility] Medical Records Department [address] [place] [address] Discharge Summary 06/05/24 1143 MR#: [id number] Acct: [id number] Name: OSWALDO CORLEY Bruno Rep #:[id number] : 1940 83 From: Jacob womack DO PCP: Dr. Mei Cummins MD Status:AD M IN Location: [facility] HR649-2 Providers Date of Admission: 06/03/24 Date of Discharge: 06/05/24 Primary Care Physician: Dr. Mei Cummins MD Consultations 06/03/24 18:24 Consult: Gastroenterology Routine Consulting Provider: Ellie Gastroenter[facility] Reason for Consult: lower GI bleed EMERGENT Consult: No MD Notified: Yes Date Notified: 06/03/24 Time Notified: 17:37 Method of Notification: Text 06/04/24 01:29 Consult: Onc/Wound/ground operations supervisor Routine Comment: Reason for Consult:: left mid [...] is an 83-year-old male who presented to [facility] ED on06/03/24 with bright red blood [...] were held on admission. On chart review, [facility] patient only had 1 PE in the [...] Std Deviation 54.4 H, RDW Coeff of Estel[place] 16.9 H, Plt Count 170, MPV 9.0, [...] Self Care Charges/Coding Visit Charges Inpatient E&M: 15092 Disch Hosp >30min 06/05/24 1147 <Electronically signed by Jacob Suazo DO> Cosigner Signature (if applicable): CC: Dr. Jacob Suazo DO; Dr. Mei Cummins MD~ Signed [facility] Work Phone: 1(599) 348-523604-06-2025 Discharge summary Author Jacob Suazo [facility] Note Date/Time June 05, 2024 11:[address] [facility] Medical Records Department [address] [place] [address] Instructions for Home/Discharge Instructions 06/05/24 1132 MR#: [id number] Acct: [id number] Name: OSWALDO CORLEY Rep #:[id number] : 1940 83 From: Jacob womack DO [...] MD; Dr. Elizabeth Santamaria MD ~ Signed [facility] Work Phone: 1(560) 430-980504-06-2025 [facility]04-06-2025 Progress note Author Jacob [facility] Note Date/Time June 05, 2024 9:32 am [facility] Medical Records Department [address] [place] [address] Progress Note - Hospitalist 06/05/24926 MR#: [id number] Acct: [id number] Name: OSWALDO CORLEY Rep #:[id number] : 1940 83 From: Jacob womack DO PCP: Dr. Mei Cummins MD Status:AD M IN Location: [place] [address]-1 Reason for Visit Reason for Visit: Diagnoses [...] 23:59 23:59 23:59 Intake Total 2211.17 / 221.17 2920.58 / 3120.58 200 / 200 Output [...] is an 83-year-old male who presented to [facility] ED on06/24 with bright red blood [...] 35 minutes. Charges/Coding Visit Charges Inpatient E&M: 19006 Subs Hosp L2 04/06/25 0932 <Electronically signed by Jacob Suazo DO> Cosigner Signature (if applicable): CC: ~ Signed [facility] Work Phone: 1(708) 962-457504-05-2025 Consult note Author Durga Blas [facility] Note Date/Time June 04, 2024 2:14 pm [facility] Medical Records Department [address] [place] [address] Anesthesia Postop Eval I 06/04/24 1413 MR#: [id number] Acct: [id number] Name: BARNEYOSWALDO Boykin Rep #:[id number] : 1940 83 From: Durga Blas PCP: Dr. Mei Cummins MD Status:AD M IN Y Race: C Location: [place] [address] Anesthesia: Postop Eval I Current Vital Signs [...] Blas Cosigner Signature: Date CC: ~ Signed [facility] Work Phone: 1(581) 564-870704-05-2025 Consult note Author Durga Blas [facility] Note Date/Time June 05, 2024 2:42 pm [facility] Medical Records Department [address] [place] [address] Anesthesia Postop Eval II 06/04/24 1414 MR#: [id number] Acct: [id number] Name: OSWALDO CORLEY Rep #:[id number] : 1940 83 From: Durga Blas PCP: Dr. Mei Cummins MD Status:AD M IN Y Race: C Location: [facility] MS307 -1 Anesthesia Postop Eval I Sum Postop Eval Completion status Anesthesia document: Postop Eval 1 completed: Yes Anesthesia Postop Eval I Summary Anesthesia Postop Eval I Summary: Anesthesia Postop Eval I: Assessment Summary Airway patent Yes 06/04/24 14:13 JEWELRY BEARING MAKER.JCOTE Spontaneous unlabored Yes 06/04/24 14:13 JEWELRY BEARING MAKER.JCOTE respirations Mental status nausea No 06/04/24 14:13 JEWELRY BEARING MAKER.JCOTE Vomiting No 06/04/24 14:13 JEWELRY BEARING MAKER.JCOTE Anesthesia Postop Eval I: Fluid Summary Crystalloid volume administer 200 06/04/24 14:13 JEWELRY BEARING MAKER.JCOTE (ml) Colloids volume administered ( ml) Blood Product volume administered (ml) Total IV fluid infused 200 06/04/24 14:13 JEWELRY BEARING MAKER.JCOTE Anesthesia Postop Eval I: Summary Notes Anesthesia Complication No 06/04/24 14:13 JEWELRY BEARING MAKER.JCOTE Anesthesia Complication Comment: Post-operative progress note Anesthesia: Postop Eval II Evaluation Mental status: Awake Pain Level: 0 nausea: No Vomiting: No 06/04/24 1414 <Electronically signed by Durga Morales at> Date _ Durga Yusufigner Signature: Date CC: ~ Signed [facility] Work Phone: 1(711) 448-680104-05-2025 Progress note Author Jacob Suazo [facility] Note Date/Time June 04, 2024 1:[address] [facility] Medical Records Department [address] [place] [address] Progress Note - Hospitalist 06/04/24 1124 MR#: [id number] Acct: [id number] Name: OSWALDO CORLEY Rep #:[id number] : 1940 83 From: Jacob womack DO PCP: Dr. Mei Cummins MD Status:AD M IN Location: MS3 ZL226-2 Reason for Visit Reason for Visit: Diagnoses [...] Std Deviation 52.9 H, RDW Coeff of Esteilta 16.1 H, Plt Count 364, MPV 9.6, Immature Gran % (Auto) 1.500 H, Neut % (Auto) 91.5 H, Lymph % (Auto) 3.2 L, Weld % (Auto) 3.7, Eos % (Auto) 0.0, [...] 88.7 H, Lymph % (Auto) 4.2 L, Weld % (Auto) 5.4, Eos % (Auto) 0.0, [...] 87.2 H, Lymph % (Auto) 4.9 L, Weld % (Auto) 6.6, Eos % (Auto) 0.1, [...] in the left hemithorax. Emphysema. Reading [facility] Rhythm Strip Rhythm Strip: Sinus Rhythm Rate: [...] is an 83-year-old male who presented to [facility] ED on06/24 with bright red blood [...] 35 minutes. Charges/Coding Visit Charges Inpatient E&M: 16271 Subs Hosp L2 06/04/24 1349 <Electronically signed by Jacob Suazo DO> Cosigner Signature (if applicable): CC: ~ Signed [facility] Work Phone: 1(682) 803-430904-05-2025 Consult note Author Garcia Friend [facility] Note Date/Time June 04, 2024 12:5 6pm [facility] Medical Records Department [facility] [place] [place] [address] Consultation - GI 06/04/24 1254 MR#: [id number] Acct: [id number] Name: OSWALDO CORLEY Rep #:[id number] : 1940 83 From: Garcia Moreno DO PCP: Dr. Mei Cummins MD Status:AD M IN Location: [place] [address] HPI Consult Data Date of Consult: 06/04/24 [...] of systems was otherwise negative. 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 [facility] Medical History Chronic respiratory failure with hypoxia [...] 91.5 H, Lymph % (Auto) 3.2 L, Weld % (Auto) 3.7, Eos % (Auto) 0.0, [...] 88.7 H, Lymph % (Auto) 4.2 L, Weld % (Auto) 5.4, Eos % (Auto) 0.0, [...] 87.2 H, Lymph % (Auto) 4.9 L, Weld % (Auto) 6.6, Eos % (Auto) 0.1, [...] in the left hemithorax. Emphysema. Reading Location: [place] Assessment & Plan Assessment/Plan (1) Acute lower [...] a colonoscopy. Charges/Coding Visit Charges Inpatient E&M: 17599 Init Hosp L3 06/04/24 1256 <Electronically signed by Garcia Moreno DO> Cosigner Signature (if applicable): CC: Dr. Mei Cummins MD~ Signed [facility] Work Phone: 1(735) 141-747604-05-2025 Consult note Author Durga Blas [facility] Note Date/Time June 04, 2024 12:5 4pm [facility] Medical Records Department [address] [place] [address] Pre-Anesthesia Evaluation 06/04/24 1249 MR#: [id number] Acct: [id number] Name: OSWALDO CORLEY Rep #:[id number] : 1940 83 From: Durga Blas PCP: Dr. Mei Cummins MD Status:AD M IN Y Race: C Location: [facility] MS307 -1 ASA Classification* ASA Classification ASA Classification: 3 [...] Procedure(s): EGD Anesthesia History Anesthesia History - director of clinical education: Anesthesia History - director of clinical education Hx Hospitalization Yes: 07/2020 breathing issues 08/13/20 08:35 /needle biopsy/pneumonia Any Problems With Anesthesia No 09/29/23 04:40 Cholinesterase deficiency No 09/29/23 04:40 You/Your [...] take am of surgery PONV PONV - director of clinical education: PONV - director of clinical education Female HX of Motion Sickness HX of N/V After Surgery Non-Smoker Duration of Surgery greater than 60 minutes Number of Risk Factors PONV Score Height & Weight Height & Weight: Anesthesia: Height & Weight Height 5 ft 11 in 06/04/24 10:33 Weight: 75 kg 06/04/24 10:33 Body Mass Index (BMI) 23.1 06/03/24 19:15 Respiratory Assessment Respiratory Assessment - director of clinical education: Respiratory Tract Infection Hx - director of clinical education Hx Respiratory Tract Infection Yes: covid 10 days ago 10/07/23 04:41 STOP Sleep Apnea STOP Sleep Apnea - director of clinical education: STOP Sleep Apnea - director of clinical education Hx Hypertension No 06/04/24 09:42 Hx Sleep [...] Tobacco Use History Tobacco Use History - director of clinical education: Tobacco Use History - director of clinical education Tobacco Use Non-smoker 07/09/20 19:04 Smoking Status Former smoker 06/03/24 19:15 Hx Tobacco Use No 06/03/24 19:15 Years Smoking Packs Smoked per Day Smoking Cessation Date was No - quit smoking greater 06/03/24 19:15 within the last 15 years than 15 years ago Hx Smoking Cessation Date 07/10/99 06/03/24 19:15 Hx Smoking Cessation No 06/03/24 19:15 Counseling Hematologic Medial History Hematologic Hx - director of clinical education: Hematologic Medical Hx - friend of the court Hx of Blood Transfusion Yes 06/03/24 19:15 [...] confused, unrespo /Reproduction History /Reproductive History - director of clinical education: /Reproductive Hx- director of clinical education Hx Now Gestational Age (in weeks): EDC: [...] 113 Gm Tube TOPICAL 1 applic BID YAZAN Administration Protocol Duloxetine HCl 30 mg 06/03/24 [...] 06/03/24 20:35 IV 06/04/24 13:00 0 mls/hr .[id number] ONE Infusion Lorazepam 1 mg 06/03/24 20:23 06/03/24 21:52 Lorazepam 1 Mg Tablet PO 1 mg TID PRN Administration ANXIETY Metoprolol Tartrate 50 mg 06/03/24 22:00 06/03/24 21:56 Metoprolol Tartrate 50 Mg Tablet PO 50 mg BID YAZAN Administration Protocol Nitroglycerin 0.4 mg 06/03/24 18:24 [...] Blas Cosigner Signature: Date CC: ~ Signed [facility] Work Phone: 1(533) 289-399204-05-[address] [facility] 06-04-2024 Discharge summary Author Aj Martinez [facility] Note Date/Time June 03, 2024 10:[address] [facility] Medical Records Department [address] [place] [address] Emergency Department Summary 06/03/24 MR#: [id number] Acct: [id number] Name: OSWALDO CORLEY Rep #:[id number] : 1940 83 From: Aj Martinez MD PCP: Dr. Mei Cummins MD Status:AD M IN Location: [facility] [id number] HPI HPI - GI History of Present [...] doing better. He continues to take Eliquis. [facility] Medical History (Updated 06/03/24 @ 22:41 by [...] I think admission indicated. Discussed with Dr. Josh COY and hospitalist. While in the ED prior [...] 91.5 H Lymph % (Auto) 3.2 L Weld % (Auto) 3.7 Eos % (Auto) 0.0 [...] in the left hemithorax. Emphysema. Reading Location: [facility] Rhythm Strip Rhythm Strip: Sinus Rhythm Rate: 95 Ectopy: None EKG Initial EKG: Attestation: I personally reviewed and interpreted this EKG as follows: Interpretation: Sinus Rhythm, No Acute Injury Pattern and Non-Specific ST Changes Management Discussion w/another healthcare provider: Hospitalist and Microbiology Quality Control Technician (GI Friend-available to evaluate and see) Discharge Plan Dx/Rx/DC Orders Clinical Impression: Acute lower gastrointestinal bleeding, Orthostatic syncope, ABLA (acute blood loss anemia) Disposition Disposition: Acute Care Hospital [facility] Discharge Date/Time: 06/03/24 18:45 What to do if you have Problems For any increased pain, shortness of breath, bleeding, nausea or vomiting, chestpain, or any unexpected problems, contact your Primary Care Provider. Call [facility] ([phone]) or report to the closest Emergency Room. Call 911 if necessary. 06/03/242240 <Electronically signed by Aj Martinez MD> Cosigner Signature (if applicable): CC: Dr. Mei Cummins MD ~ Signed [facility] Work Phone: 1(430) 416-449804-04-2025 Progress note Author [facility] Tita [facility] Note Date/Time June 03, 2024 8:[address] [facility] Medical Records Department [address] [place] [address] Progress Note - Hospitalist 06/03/242008 MR#: [id number] Acct: [id number] Name: OSWALDO CORLEY Rep #:[id number] : 1940 83 From: Sushila Rivers MD PCP: Dr. Mei Cummins MD Status:AD M IN Location: [place] [address] Hospitalist Note Patient per discussion with Dr. Santamaria with syncopal event in the ED prior to floor transition. She had requested repeat STAT HH which is now resulting 8.4, patient orthostatic. Will release held blood. IVF bolus currently running and BPimproved from prior. Will place on telemetry. 06/03/242009 <Electronically signed by Sushila Rivers MD> Cosigner Signature (if applicable): CC: ~ Signed [facility] Work Phone: 1(124) 759-458504-04-2025 History and physical note Author Elizabeth Santamaria [facility] Note Date/Time June 03, 2024 7:[address] [facility] Medical Records Department [address] [place] [address] H&P Exam - Hospitalist 06/03/24 1716 MR#: [id number] Acct: [id number] Name: OSWALDO CORLEY Rep #:[id number] : 1940 83 From: Elizabeth Santamaria MD PCP: Dr. Mei Cummins MD Status:AD M IN Location: [facility] CW054-6 HPI - General General Date of Admission: [...] of systems was otherwise negative. 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 [facility] Medical History (Updated 06/03/24 @ 15:36 by [...] 91.5 H, Lymph % (Auto) 3.2 L, Weld % (Auto) 3.7, Eos % (Auto) 0.0, [...] in the left hemithorax. Emphysema. Reading Location: [place] Assessment & Plan Assessment/Plan (1) Acute lower gastrointestinal bleeding: PLAN: Plan #Acute lower GI bleed likely due to bleeding diverticula * Admit for 1 day prior to admission. [facility]. He was admitted with a complaint of [...] to be DNRCCA no intubation. * Total xuni-jo-lhha time 16 minutes. Charges/Coding Visit Charges Inpatient E&M: 82122 Init Hosp L3 Procedures Hospitalists Procedures: 13724 Advncd Care Plan 30 Min 06/03/241909 <Electronically [...] MD; Dr. Elizabeth Santamaria MD ~* Signed [facility] Work Phone: 1(519) 844-826304-04-2025 Evaluation note* Diagnosis Onset Date Resolution Status Admit Date ABLA (acute blood loss anemia) resol faisal [...] ankle with muscle involvement without acute August 24, 2 025 2:00pm Other specified peripheral vascular diseases acute August 24 2:00pm 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 layer exposed chronic August 24, 2024 2:00pm BPH (benign prostatic hyperplasia) acute September 28, 2024 2:45pm CAD (coronary artery disease) acute September 28, 2024 2:45pm Coronary artery disease acute J alex[place]2024 2:45pm Debility acute September 28 2:45pm Depression acute September 28 2:45pm TOLENTINO (dyspnea on exertion) acute September 28, 2024 2:45pm History of coronary artery disease acute September 28, 2024 2:45pm History of lung cancer acute Ju ly 2024 2:45pm 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 acute September 28, 2 025 2:45pm Other specified peripheral vascular diseases acute September 28 2:45pm COPD (chronic obstructive pulmonary disease) chronic September 28 2:45pm HLD (hyperlipidemia) chronic September 28, 2024 2:45pm 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04-03-2025 Telephone encounter Note* Telephone Encounter - Vickie Carrillo MA - 06/02/2024 3:09 PM EDT PCP agreeable, no need to call back per Triage note below. Vickie Carrillo MA [facility]04-03-2025 Miscellaneous Notes* Telephone Encounter - Vickie Carrillo MA - 06/02/2024 3:09 PM EDT PCP agreeable, no need to call back per Triage note below. Vickie Carrillo MA * Telephone Encounter - Mei Cummins MD - 06/02/2024 1:48 PM EDT Noted and agree Mei Cummins MD * Telephone Encounter - Naty Ley RN - 06/02/2024 1:22 PM EDT Naty calling from [facility] to report plan of care for patient and prison will visit patient 1 time a week [...] above, Naty Ley RN [facility] Telephone encounter Note * Telephone Encounter - Mei Cummins MD - 06/02/2024 1:48 PM EDT Noted and agree Mei Cummins MD [facility]04-03-2025 Telephone encounter Note* Telephone Encounter - Naty Ley RN - 06/02/2024 1:22 PM EDT Naty calling from [facility] to report plan of care for patient and prison will visit patient 1 time a week [...] not ok with above, Naty Ley RN [facility]04-02-2025 History of Present illness Narrative* Kimber, Kailash Jerome APRN.MEDICAL DEVICE ASSEMBLER - 06/01/2024 2:00 PM EDT Images from the original note were not included. Pulmonary Medicine Patients name: Oswaldo Corley PCP: Mei Cummins MD CC: hospital follow-up HPI: Oswaldo Corley is a 83 year old male former 33-muzo-uuce smoker, quitting 2002 with PMH significant for [...] tolerate 500 mcg. Unfortunately, he was hospitalized 05/22-3/25 for COPD exacerbation. Discharged home on A [...] stable, without evidence of cardiomegaly. Reading Location: [id number] CT Chest: 03/2024 IMPRESSION: 1. New and [...] architectural distortion in the LEFT upper lobe. Rn Internal Medicine: ARTEM Transcribe Date/Time: Mar 16 2024 3:35P Dictated by : HILDA GONSALVES MD This examination was interpreted and the report reviewed and electronically signed by: HILDA GONSALVES MD on Mar 16 2024 3:47PM EST Results-Findings * * *Final Report* * * DATE OF EXAM: Mar 14 2024 2:37PM [facility] 0539 - CT CHEST W IVCON [...] Neut (k/uL) Date Value 12/08/2023 11.33 Abs Weld (k/uL) Date Value 12/08/2023 0.37 04/23/2021 0.57 [...] Stage 3 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 ([facility]) - ICD9: 496, ICD10: J44.9 - Continue [...] edited and updated as necessary. Kailash Cordova APRN.MEDICAL DEVICE ASSEMBLER I spent a total of 26 minutes on the date of the service which included preparing to see the patient, diks-vc-bhfv patient care, completing clinical documentation, performing a medically appropriate examination, and counseling and educating the patient/family/caregiver. documented in [facility]04-[facility]-20[facility] Telephone encounter Note* Telephone Encounter - Mei Cummins MD - 05/26/2024 3:03 PM EDT Noted and agree Mei Cummins MD [facility]03-27-2025 Miscellaneous Notes* Telephone Encounter - Mei Cummins MD - 05/26/2024 3:03 PM EDT Noted and agree Mei Cummins MD * Telephone Encounter - Naty Ley RN - 05/26/2024 12:04 PM EDT Twila from [facility] calls and states that patient was discharged from [facility] yesterday with the diagnosis of COPD exacerbation. Twila reports that prison was supposed to visit patient, however,patient is declining home health visits until next week. Home Health will visit patient next week per patient request. Please review and adviseNaty RN documented in this encounterMercy Hospital03-27-2025 Telephone encounter Note * Telephone Encounter - Naty Ley RN - 05/26/2024 12:04 PM EDT Twila from [facility] calls and states that patient was discharged from [facility] yesterday with the diagnosis of COPD exacerbation. Twila reports that prison was supposed to visit patient, however,patient is declining home health visits until next week. Home Health will visit patient next week per patient request. Please review and advise, Naty Ley RN [facility]03-25-[address] [facility] Medical Records Department [address] [place] [address] Discharge Summary 05/24/24 1405 MR#: [id number] Acct: [id number] Name: OSWALDO CORLEY Rep #:[id number] : 1940 83 From: Malu Steen DO PCP: Dr. Mei Cummins MD Status:AD M IN [facility] Prov[facility] Date of Admission: 05/22/24 Date [...] exertion and presented to emergency department at [facility] on 05/22/2024 with worsening of breath. [...] Self Care Charges/Coding Visit Charges Inpatient E&M: 04722 Disch Hosp >30min 05/24/24 1427 Cosigner Signature (if applicable): CC: Dr. Malu Steen DO; Dr. Mei Cummins MD~ Signed [facility]03-25-2025 [facility] Progress note Author Mei [facility] Note Date/Time May 23, 2024 10: 59am [facility] Medical Records Department [address] [place] [address] Progress Note - Hospitalist 05/23/24 1051 MR#: [id number] Acct: [id number] Name: OSWALDO CORLEY Rep #:[id number] : 1940 83 From: Mei Cortes DO PCP: Dr. Mei Cummins MD Status:AD M IN Location: [place] [address] Reason for Visit Reason for Visit: Diagnoses [...] (Auto) 95.5 H, Lymph % (Auto)1.3 L, Weld % (Auto) 2.4, Eos % (Auto) 0.1, [...] stable, without evidence of cardiomegaly. Reading Location: [address] Chest CTA 05/22/24 13:50 IMPRESSION: 1. Although predominantly ground-glass opacities, extensive changes are seen in the right lower lobe, concerning for inflammation/infection. 2. Progression of areas of left lower lobe and left upper lobe scarring, also again seen with left lower lobe pleural-based loculated air collection. 3. No evidence of pulmonary embolism. Reading Location: [address] Physical Exam Const alert, oriented x3, [...] 35 minutes Charges/Coding Visit Charges Inpatient E&M: 50856 Subs Hosp L2 05/23/24 1059 <Electronically signed by Mei Cortes DO> Cosigner Signature (if applicable): CC: ~ Signed [facility] Work Phone: 1(263) 518-396203-24-[address] [facility] Medical Records Department [address] [place] [address] Progress Note - Hospitalist 05/23/24 1051 MR#: [id number] Acct: [id number] Name: OSWALDO CORLEY Rep #:[id number] : 1940 83 From: Mei Cortes DO PCP: Dr. Mei Cummins MD Status:AD M IN Location: [place] [address] Reason for Visit Reason for Visit: Diagnoses [...] (Auto) 95.5 H, Lymph % (Auto)1.3 L, Weld % (Auto) 2.4, Eos % (Auto) 0.1, [...] stable, without evidence of cardiomegaly. Reading Location: [address] Chest CTA 05/22/24 13:50 IMPRESSION: 1. Although predominantly ground-glass opacities, extensive changes are seen in the right lower lobe, concerning for inflammation/infection. 2. Progression of areas of left lower lobe and left upper lobe scarring, also again seen with left lower lobe pleural-based loculated air collection. 3. No evidence of pulmonary embolism. Reading Location: [address] Physical Exam Const alert, oriented x3, [...] 35 minutes Charges/Coding Visit Charges Inpatient E&M: 73129 Subs Hosp L2 05/23/24 1059 Cosigner Signature (if applicable): CC: ~ Signed [facility]03-23-2025 History and physical note Author Jacob Suazo [facility] Note Date/Time May 22, 2024 6:1 0pm [facility] Medical Records Department [address] [place] [address] H&P Exam - Hospitalist 05/22/24 1514 MR#: [id number] Acct: [id number] Name: OSWALDO CORLEY Rep #:[id number] : 1940 83 From: Jacob womack DO PCP: Dr. Mei Cummins MD Status:AD M IN Location: [place] [address] HPI - General General Date of Admission: 05/22/24 Date of Service: 05/22/24 Chief Complaint: Worsening shortness of breath HPI Narrative OSWALDO CORLEY, is a 83 M who presented to [facility] ED on 05/22/2024 with worsening shortness [...] No other acute concerns at this time. [facility] Medical History COPD exacerbation Angina at rest [...] (Auto) 95.5 H, Lymph % (Auto)1.3 L, Weld % (Auto) 2.4, Eos % (Auto) 0.1, [...] stable, without evidence of cardiomegaly. Reading Location: [address] Chest CTA 05/22/24 13:50 IMPRESSION: 1. Although predominantly ground-glass opacities, extensive changes are seen in the right lower lobe, concerning for inflammation/infection. 2. Progression of areas of left lower lobe and left upper lobe scarring, also again seen with left lower lobe pleural-based loculated air collection. 3. No evidence of pulmonary embolism. Reading Location: [address] Assessment & Plan Assessment/Plan (1) Acute exacerbation of chronic obstructive pulmonary disease: (2) Chronic respiratory failure with hypoxia and hypercapnia: (3) Acidosis, lactic: PLAN: Plan Patient is an 83-year-old [facility] worsening shortness [...] 55 minutes. Charges/Coding Visit Charges Inpatient E&M: 26309 Init Hosp L2 05/22/24 1556 <Electronically signed by Jacob Suazo DO> Cosigner [...] DO; Dr. Mei Cummins MD ~* Signed [facility] Work Phone: 1(692) 674-966203-23-2025 History and physical note [facility] Medical Records Department [address] [place] [address] H&P Exam - Hospitalist 05/22/24 1514 MR#: [id number] Acct: [id number] Name: OSWALDO CORLEY Rep #:[id number] : 1940 83 From: Jacob womack DO PCP: Dr. Mei Cummins MD Status:AD M IN Location: [facility] IJQ230- 1 HPI - General General Date of Admission: 05/22/24 Date of Service: 05/22/24 Chief Complaint: Worsening shortness of breath HPI Narrative OSWALDO CORLEY, is a 83 M [address] presented to [facility] ED on 05/22/2024 with worsening shortness [...] swelling. Noother acute concerns at this time. [facility] Medical History COPD exacerbation Angina at rest [...] (Auto) 95.5 H, Lymph % (Auto)1.3 L, Weld % (Auto) 2.4, Eos % (Auto) 0.1, [...] stable, without evidence of cardiomegaly. Reading Location: [address] Chest CTA 05/22/24 13:50 IMPRESSION: 1. Although predominantly ground-glass opacities, extensive changes are seen in the right lower lobe, concerning for inflammation/infection. 2. Progression of areas of left lower lobe and left upper lobe scarring, also again seen with left lower lobe pleural-based loculated air collection. 3. No evidence of pulmonary embolism. Reading Location: [address] Assessment & Plan Assessment/Plan (1) Acute exacerbation of chronic obstructive pulmonary disease: (2) Chronic respiratory failure with hypoxia and hypercapnia: (3) Acidosis, lactic: PLAN: Plan Patient is an 83-year-old male who presented [facility] ED on 05/22/2024 with worsening shortness [...] 55 minutes. Charges/Coding Visit Charges Inpatient E&M: 29501 Init Hosp L2 05/22/24 1556 Cosigner Signature [...] DO; Dr. Mei Cummins MD ~* Signed [facility]03-23-2025 Discharge summary Author Randy Londono [facility] Note Date/Time May 22, 2024 3:1 8pm [facility] Medical Records Department [address] [place] [address] Emergency Department Summary 05/22/24 MR#: [id number] Acct: [id number] Name: OSWALDO CORLEY Rep #:[id number] : 1940 83 From: Randy Londono MD [...] to 5 L/min. He is seen by drum barker operator. He is presently on prednisone 10 mg. [...] similar symptoms: Yes Recent Illness/Hospitalization: No PFSH PFS Medical History COPD exacerbation Angina at rest [...] 95.5 H Lymph % (Auto) 1.3 L Weld % (Auto) 2.4 Eos % (Auto) 0.1 [...] stable, without evidence of cardiomegaly. Reading Location: [id number] Chest CTA 05/22/24 13:50 IMPRESSION: 1. Although predominantly ground-glass opacities, extensive changes are seen in the right lower lobe, concerning for inflammation/infection. 2. Progression of areas of left lower lobe and left upper lobe scarring, also again seen with left lower lobe pleural-based loculated air collection. 3. No evidence of pulmonary embolism. Reading Location: [address] EKG Initial EKG: Attestation: I personally reviewed and interpreted this EKG as follows: Interpretation: Sinus Rhythm (Rate is 79. OK interval is 154 ms. Cures duration 86 ms. QT duration 360 ms. [place] is normal. There is artifact that the [...] Acidosis, lactic Disposition Disposition: Acute Care Hospital [facility] What to do if you have Problems For any increased pain, shortness of breath, bleeding, nausea or vomiting, chestpain, or any unexpected problems, contact your Primary Care Provider. Call [facility] ([phone]) or report to the closest Emergency Room. Call 911 if necessary. 05/22/24 1518 <Electronically signed by Randy Londono MD> Cosigner Signature (if applicable): CC: Dr. Mei Cummins MD ~ Signed [facility] Work Phone: 1(249) 779-773703-23-2025 Evaluation note* Diagnosis Onset Date Resolution Status Admit Date Chronic respiratory failure with hypoxia and hypercapnia chronic May 222024 3:14pm Acidosis, lactic resolved May 222024 3:14pm Acute exacerbation of chroni c obstructive pulmonary disease resolved Ma [facility] 2024 3:14pm ABLA (acute blood loss anemia) [...] ankle with muscle involvement without acute August 24, 2 025 2:00pm Other specified peripheral vascular diseases acute August 24 2:00pm 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 layer exposed chronic August 24, 2024 2:00pm BPH (benign prostatic hyperplasia) acute September 14, 2024 3:00pm CAD (coronary artery disease) acute September 14, 2024 3:00pm Coronary artery disease acute J [place] 2024 3:00pm Debility acute September 14 3:00pm Depression acute September 14 3:00pm TOLENTINO (dyspnea on exertion) acute September 14, 2024 3:00pm History of coronary artery disease acute September 14, 2024 3:00pm History of lung cancer acute Ju ly 2024 3:00pm 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 Work Phone: 1(208) 579-620503-23-2025 History and physical note [facility] Medical Records Department [address] [place], [place] [address] H&P Exam - Hospitalist 05/22/24 1514 MR#: [id number] Acct: [id number] Name: OSWALDO CORLEY Rep #:[id number] : 1940 83 From: Jacob womack DO PCP: Dr. Mei Cummins MD Status:AD M IN Location: [facility] UME783- 1 HPI - General General Date of Admission: 05/22/24 Date of Service: 05/22/24 Chief Complaint: Worsening shortness of breath HPI Narrative OSWALDO CORLEY, is a 83 M who presented to [facility] ED on 05/22/2024 with worsening shortness [...] swelling. Noother acute concerns at this time. [facility] Medical History COPD exacerbation Angina at rest [...] (Auto) 95.5 H, Lymph % (Auto)1.3 L, Weld % (Auto) 2.4, Eos % (Auto) 0.1, [...] stable, without evidence of cardiomegaly. Reading Location: [address] Chest CTA 05/22/24 13:50 IMPRESSION: 1. Although predominantly ground-glass opacities, extensive changes are seen in the right lower lobe, concerning for inflammation/infection. 2. Progression of areas of left lower lobe and left upper lobe scarring, also again seen with left lower lobe pleural-based loculated air collection. 3. No evidence of pulmonary embolism. Reading Location: [address] Assessment & Plan Assessment/Plan (1) Acute exacerbation of chronic obstructive pulmonary disease: (2) Chronic respiratory failure with hypoxia and hypercapnia: (3) Acidosis, lactic: PLAN: Plan Patient is an 83-year-old male who presented [facility] ED on 05/22/2024 with worsening shortness [...] 55 minutes. Charges/Coding Visit Charges Inpatient E&M: 26752 Init Hosp L2 05/22/24 1556 Cosigner Signature (if applicable): CC: Dr. Jacob Suazo DO; Dr. Mei Cummins MD~ Signed [facility]03-23-2025 Discharge summary [facility] Medical Records Department [address] [place] [address] Emergency Department Summary 05/22/24 MR#: [id number] Acct: [id number] Name: OSWALDO CORLEY Rep #:[id number] : 1940 83 From: Randy Londono MD [...] to 5 L/min. He is seen by drum barker operator. He is presently on prednisone 10 mg. [...] 95.5 H Lymph % (Auto) 1.3 L Weld % (Auto) 2.4 Eos % (Auto) 0.1 [...] stable, without evidence of cardiomegaly. Reading Location: [address] Chest CTA 05/22/24 13:50 IMPRESSION: 1. Although predominantly ground-glass opacities, extensive changes are seen in the right lower lobe, concerning for inflammation/infection. 2. Progression of areas of left lower lobe and left upper lobe scarring, also again seen with left lower lobe pleural-based loculated air collection. 3. No evidence of pulmonary embolism. Reading Location: [address] EKG Initial EKG: Attestation: I personally reviewed and interpreted this EKG as follows: Interpretation: Sinus Rhythm (Rate is 79. OK interval is 154 ms. Cures duration 86 ms. QT duration 360 ms. [place] is normal. There is artifact that the [...] Acidosis, lactic Disposition Disposition: Acute Care Hospital [facility] What to do if you have Problems For any increased pain, shortness of breath, bleeding, nausea or vomiting, chestpain, or any unexpected problems, contact your Primary Care Provider. Call [facility] ([phone]) or report tothe closest Emergency Room. Call 911 if necessary. 05/22/24 1518 Cosigner Signature (if applicable): CC: Dr. Mei Cummins MD ~ Signed [facility]03-23-2025 Radiology Diagnostic study note [facility] Imaging Services [address], [place] [address] CTA Chest W/WO Contrast MR#: [id number] Acct: [id number] Name: OSWALDO CORLEY Rep #: [id number] : 1940 M 83 From: Papo German MD PCP: Dr. Mei Cummins MD Status: RE G ER Study:CTA Chest W/WO Contrast Date of Exam: 05/22/24 Exam# [id number] Ordering Dr: Nancy Londono MD PROCEDURE: CTA [...] No pericardial effusion is seen Thoracic Aorta: Dtbk-dc-jvghztin aortic calcification is seen, with a somewhat [...] upper abdomen show no acute process. Bones: Flml-hx-anzuhgpd degenerative changes of the visualized spine are seen. CT/CTA Chest W/WO Contrast IMPRESSION: 1. Although predominantly ground-glass opacities, extensive changes are seen in the right lower lobe, concerning for inflammation/infection. 2. Progression of areas of left lower lobe and left upper lobe scarring, also again seen with left lower lobe pleural-based loculated air collection. 3. No evidence of pulmonary embolism. Reading Location: [id number] CC: Dr. Mei Cummins MD; Dr. Randy Londono MD ~ Rn Internal Medicine: Signed [facility]03-23-2025 Radiology Diagnostic study note [facility] Imaging Services [address] [place] [address] Chest PA and Lateral MR#: [id number] Acct: [id number] Name: OSWALDO CORLEY Rep #: [id number] : 1940 M 83 From: Papo German MD PCP: Dr. Mei Cummins MD Status: RE G ER Study:Chest PA and Lateral Date of Exam: 05/22/24 Exam# [id number] Ordering Dr: Nancy Londono MD EXAM: CHEST [...] stable, without evidence of cardiomegaly. Reading Location: [id number] CC: Dr. Mei Cummins MD; Dr. Randy Londono MD ~ Rn Internal Medicine: Signed [facility]03-14-2025 Progress note Author Rosa Garcia [facility] Note Date/Time May 13, 2024 2:[address] [facility] [address] [place] [address] Progress Note - Wound Care 05/11/24 1525 MR#: [id number] Acct: [id number] Name: OSWALDO CORLEY Rep #:[id number] : 1940 83 From: Rosa simon AIRPLANE ELECTRICIAN AIRPLANE ELECTRICIAN-C PCP: Dr. Mei Cummins MD Status:RE G RCR Location: History of Present Illness Date of Service: 05/11/24 Chief Complaint: Left medial ankle ulcer History of Wound: Patient is a very pleasant 83 year old male with a left medialankle ulcer that he has been seeing airport clerk, Dr. Viveros. Patient has a significant history [...] He has been placing Santyl covered with Summit SAP. There has not been much improvement to this area. He [facility]iver[facility] also suggested [...] Index (BMI) 22.4 Charges/Coding Procedures Integumentary 111xxx-113xx: 50430 Nel subq tissue 20 sq cm/< Debridement [...] Recorded Date Recorded By Document 05/11/24 14:37 [id number] 05/11/24 14:41 05/11/24 14:37 - Today's Visit Information Type of service Follow-up Visit (Physician/MEDICAL DEVICE ASSEMBLER ) Arrival Mode Ambulatory, Wheelchair Accompanied by [...] Date Recorded By Document 05/11/24 14:37 KW [id number] 05/11/24 14:41 KW 05/11/24 14:37 Wound Center Nurse 1 #1- L MEDIAL ANKLE -Current Size (cm) - Length 0.7 -Current Size (cm) - Width 0.5 -Current Size (cm) - Depth 0.3 -Total Square Cm 0.35 -Date of Last Picture (Recall this 05/11/24 field) -Exudate Amt Medium -Exudate Type Serosanguineous -Wound Margin Distinct, Outline Attached -Granulation Amt Small (1-33%) -Granulation Quality [place] -Necrosis Amt Large (67-100%) -Necrotic Tissue Type [...] Date Recorded By Document 05/11/24 14:54 GM [id number] 05/11/24 14:58 GM Edit Result 05/11/24 14:54 GM (1) [id number] 05/11/24 14:59 GM (1) #1- L MEDIAL [...] Date Recorded By Document 05/11/24 15:10 KW [id number] 05/11/24 15:10 KW 05/11/24 15:10 Wound Care [...] today. He has been seeing Dr. Viveros, airport clerk, who referred him to the wound healing center for further evaluation and treatment. Due to his significant medical history, especially with his COPD and peripheral vascular disease, I would like to treat him conservatively. Wound care - Continue Santyl daily covered with gauze or Summit SAP. Wash with soap and water at the time of the dressing change. Wound culture from 03/30/24 showed no growth. Will follow up in 2 weeks with one of the podiatrists here at the wound healing center. 05/13/24 1440 <Electronically signed by Rosa Garcia NP AIRPLANE ELECTRICIAN-C> Cosigner Signature (if applicable): CC: ~ Signed [facility] Work Phone: 1(141) 200-415503-14-2025 Progress note [facility] [address] [place] [address] Progress Note - Wound Care 05/11/24 1525 MR#: [id number] Acct: [id number] Name: OSWALDO CORLEY Rep #:[id number] : 1940 83 From: Rosa simon NP AIRPLANE ELECTRICIAN-C PCP: Dr. Mei Cummins MD Status:RE G RCR Location: History of Present Illness Date of Service: 05/11/24 Chief Complaint: Left medial ankle ulcer History of Wound: Patient is a very pleasant 83 year old male with a left medialankle ulcer that hehas been seeing airport clerk, Dr. Viveros. Patient has a significant history [...] He has been placing Santyl covered with Summit SAP. There has not been much improvement to this area. He states that he was referred to see us by [facility] and that Dr. Viveros also suggested [...] Index (BMI) 22.4 Charges/Coding Procedures Integumentary 111xxx-113xx: 77151 Nel subq tissue 20 sq cm/< Debridement [...] Start: 05/11/24 14:34 Freq: Status: Active Protocol: .SHANTI Activity Type Activity Date Activity User E-sign Co-sign Detail Recorded Client Recorded Date Recorded By Document 05/11/24 14:37 [id number] 05/11/24 14:41 KW 05/11/24 14:37 - Today's Visit Information Type of service Follow-up Visit (Physician/MEDICAL DEVICE ASSEMBLER ) Arrival Mode Ambulatory, Wheelchair Accompanied by [...] Date Recorded By Document 05/11/24 14:37 KW [id number] 05/11/24 14:41 KW 05/11/24 14:37 Wound Center Nurse 1 #1- L MEDIAL ANKLE -Current Size (cm) - Length 0.7 -Current Size (cm) - Width 0.5 -Current Size (cm) - Depth 0.3 -Total Square Cm 0.35 -Date of Last Picture (Recall this 05/11/24 field) -Exudate Amt Medium -Exudate Type Serosanguineous -Wound Margin Distinct, Outline Attached -Granulation Amt Small (1-33%) -Granulation Quality [place] -Necrosis Amt Large (67-100%) -Necrotic Tissue Type Adherent Slough -Texture (Bell-wound Skin Appearance) Assessed, Localized Edema -Moisture (Bell-wound Skin Appearance) Maceration, Weeping -Color (Bell-wound Skin Appearance) Assessed -Temperature (Bell-wound Skin No Abnormality Appearance) (Pt Warm) -Tenderness on Palpation (Bell-wound No Skin Appearance) -Ulcer Cleansing Rinsed/ Irrigated with Saline -Foul Odor after Cleansing No -Anesthetic Used 5% Lidocaine Gel FABIAN - Nurse 2 - General Ulcer CM Notes Start: 05/11/24 14:34 Freq: Status: Active Protocol: Activity Type Activity Date Activity User E-sign Co-sign Detail Recorded Client Recorded Date Recorded By Document 05/11/24 14:54 GM [id number] 05/11/24 14:58 GM Edit Result 05/11/24 14:54 GM (1) [id number] 05/11/24 14:59 GM (1) #1- L MEDIAL [...] Date Recorded By Document 05/11/24 15:10 KW [id number] 05/11/24 15:10 KW 05/11/24 15:10 Wound Care [...] today. He has been seeing Dr. Viveros, airport clerk, who referred him to the wound healing center for further evaluation and treatment. Due to his significant medical history, especially with his COPD and peripheral vascular disease, Iwould like to treat him conservatively. Wound care - Continue Santyl daily covered with gauze or Summit SAP. Wash with soap and water at thetime of the dressing change. Wound culture from 03/30/24 showed no growth. Will follow up in 2 weeks with one of the podiatrists here at the wound healing center. 05/13/24 1440 Cosigner Signature (if applicable): CC: ~ Signed [facility]03-12-2025 Evaluation note* Diagnosis Onset Date Resolution Status Admit Date Chronic ulcer of left ankle acute May 11, 2024 1:55pm History of lung cancer acute [facility] 2024 1:55pm History of peripheral arteri al disease acute May 11, 2024 1:55pm COPD (chronic obstructive pulmonary disease) chronic May 11, 2 025 1:55pm Acidosis, lactic resolved May 222024 3:14pm Acute exacerbation of chroni c obstructive pulmonary disease resolved [facility] 2024 3:14pm Chronic respiratory failure with hypoxia [...] ankle with muscle involvement without acute August 24, 025 2:00pm Other specified peripheral vascular diseases acute August 24 2:00pm 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 layer exposed chronic August 24, 2024 2:00pm [facility] Work Phone: 1(626) 445-842703-06-2025 Telephone encounter Note* Telephone Encounter - Coco Arriaga RN - 05/05/2024 9:09 AM EST Jaimie-a nurse with [facility] calling and requesting pt's most recent PCP OV note to be faxed to her, for continuity of care, at [phone]. Faxed as requested. Coco Arriaga RN [facility]03-06-2025 Miscellaneous Notes* Telephone Encounter - Coco Arriaga RN - 05/05/2024 9:09 AM EST Jaimie-angelique nurse with [facility] calling and requesting pt's most recent PCP OV note to be faxed to her, for continuity of care, at [phone]. Faxed as requested. Coco Arriaga RN documented in this encounterMercy Hospital02-26-2025 Evaluation note* Diagnosis Onset Date Resolution [...] 2024 1:55pm History of lung cancer acute [facility] 2024 1:55pm History of peripheral arteri al disease acute May 11, 2024 1:55pm COPD (chronic obstructive pulmonary disease) chronic May 11, 2 025 1:55pm Acidosis, lactic resolved May 222024 3:14pm Acute exacerbation of chroni c obstructive pulmonary disease resolved [facility] 2024 3:14pm Chronic respiratory failure with hypoxia and hypercapnia inactive [facility] 2024 3:14pm ABLA (acute blood loss anemia) [...] layer exposed chronic July 27, 2024 11:00am [facility] Work Phone: 1(168) 991-534002-19-2025 Telephone encounter Note* Telephone Encounter - Jamshid Brown APRN.CNP - 04/20/2024 12:58 PM EST Noted. Jamshid Brown APRN.CNP [facility] Work Phone: 1(320) 699-968902-19-2025 Miscellaneous Notes* Telephone Encounter - Jamshid Brown APRN.CNP - 04/20/2024 12:58 PM EST Noted. Jamshid Brown APRN.CNP * Telephone Encounter - Tyesha Lacey RN - 04/20/2024 12:44 PM EST Jeremiah RN with [facility] calls to let provider know that he saw patient for recertification of home health services. Patient to be seen weekly x 8 weeks for wound care for pressure ulcer. Wound care orders are from [facility] Wound Center. No call back needed. Tyesha Lacey RN documented in this encounterMercy Hospital02-19-2025 Telephone encounter Note * Telephone Encounter - Tyesha Lacey RN - 04/20/2024 12:44 PM EST Jeremiah RN with [facility] calls to let provider know that he saw patient for recertification of home health services. Patient to be seen weekly x 8 weeks for wound care for pressure ulcer. Wound care orders are from [facility] Wound Center. No call back needed. Tyesha Lacey RN [facility]02-13-2025 History of Present illness Narrative* Betito Mauro MD - 04/14/2024 2:30 PM EST Images from the original note were not included. Surgery/Procedure Date: 05/13/2022 Surgeon(s)/Proceduralist(s) and Cold Rolling Machine Setter(s): Surgeon(s) and Role: Panel 1: * Alex Rivsa MD - Primary Procedure(s): Right ileofemoral and deep femoral endarterectomy with patch angioplasty Right SFA eversion endarterectomy Right common and external iliac artery stent (two 10x60 Absolute Pro nitinol stents. ) Aortogram, partial right leg diagnostic angiography Surgery/Procedure Date: 03/28/2022 Surgeon(s)/Proceduralist(s) and Cold Rolling Machine Setter(s): Surgeon(s) and Role: * Alex Rivas MD - Primary INTERVENTIONAL PROCEDURE: Ultrasound-guided bilateral common femoral access Left common femoral artery catheterization and diagnostic angiography via left sheath- 61657 Aortic catheterization via right common femoral artery -96720 Aortogram with right lower extremity angiogram 91349, [address] [facility] EST[facility]LISHED CLINIC VISIT Oswaldo Corley [id number] HISTORY OF PRESENT ILLNESS: Mr. Corley is [...] Laterality Date ANGIOGRAM EXTREMITY COLONOSCOPY N/A 09/29/2023 [facility] COLONOSCOPY N/A 10/07/2023 [facility] EGD W/O [facility] SPEC VARICIES INJ N/A 09/29/2023 [facility] EGD W/O [facility] SPEC VARICIES INJ N/A 10/07/2023 [facility] LUNG BIOPSY Left needle biopsy [...] Vascular Surgery Staff 05/11/2024 documented in this encounterMercy Hospital02-13-2025 [facility] Telephone encounter Note* Telephone Encounter - Twila [...] was identified. 04/14/2024 by Twila Weston APRN.CNP [facility]02-13-2025 Miscellaneous Notes* Telephone Encounter - Twila [...] 13, 2024 8:10 AM documented in this encounterMercy Hospital02-12-2025 Telephone encounter Note * Telephone Encounter [...] Hunt LPN April 13, 2024 8:10 AM [facility]02-06-2025 Telephone encounter Note* Telephone Encounter - Mei Cummins MD - 04/07/2024 4:47 PM EST Form signed Mei Cummins MD [facility]02-06-2025 Miscellaneous Notes* Telephone Encounter - Mei Cummins MD - 04/07/2024 4:47 PM EST Form signed Mei Cummins MD * Telephone Encounter - Vickie Carrillo MA - 04/04/2024 2:13 PM EST Type of form: AEP Life Support Device verification. asking if PCP will sign this. Upon completion, asking if office will mail this to [facility]. has brought in pre-addressed envelope with stamp to be sent out. Office notified her this can be completed. Return address to pt/ on envelope. Form received via walk in When form is completed, Mail form to [address] [address] Form has been forwarded to Physician Desk: Dr. Maria G Carrillo MA documented in this encounterMercy Hospital02-03-2025 Telephone encounter Note * Telephone Encounter - Vickie Carrillo MA - 04/04/2024 2:13 PM EST Type of form: AEP Life Support Device verification. asking if PCP will sign this. Upon completion, asking if office will mail this to [facility]. has brought in pre-addressed envelope with stamp to be sent out. Office notified her this can be completed. Return address to pt/ on envelope. Form received via walk in When form is completed, Mail form to [address] [place] [address] Form has been forwarded to Physician Desk: Dr. Maria G Carrillo MA [facility]01-30-2025 Miscellaneous Notes* Telephone Encounter - Vickie [...] EST Pt had blood work done at [facility] ordered by PCP. Results attached below. View External Labs - Chemistry [ID [id number]] Malu Tavares MA documented in this encounterMercy Hospital01-30-2025 Telephone encounter Note * Telephone Encounter - Vickie Carrillo MA - 03/31/2024 9:04 AM EST Called and spoke with pt's , Serenity. Notified her of results and recommendations below from Provider. verbalized understanding. Vickie Carrillo MA [facility]01-30-2025 Telephone encounter Note* Telephone Encounter - Mei Cummins MD - 03/31/2024 8:59 AM EST Please notify patient that his lab results show that his potassium level is good at 4.0, so it doesnot look like he needs any potassium supplementation at this time. Mei Cummins MD [facility]01-30-2025 Telephone encounter Note* Telephone Encounter - Malu Tavares MA - 03/31/2024 8:42 AM EST Pt had blood work done at [facility] ordered by PCP. Results attached below. View External Labs - Chemistry [ID [id number]] Malu Tavares MA [facility]01-29-2025 Evaluation note* Diagnosis Onset Date Resolution Status Admit Date Chronic ulcer of left ankle acute March 30, 2024 1:51pm History of lung cancer acute Ja nuary 2024 1:51pm History of peripheral arteri al [...] 2024 1:55pm History of lung cancer acute [facility] 2024 1:55pm History of peripheral arteri al disease acute May 11, 2024 1:55pm COPD (chronic obstructive pulmonary disease) chronic May 11, 2 025 1:55pm Acidosis, lactic resolved May 222024 3:14pm Acute exacerbation of chroni c obstructive pulmonary disease resolved [facility] 2024 3:14pm Chronic respiratory failure with hypoxia and hypercapnia inactive Apr 2024 3:14pm ABLA (acute blood loss anemia) [...] vascular diseases acute July 06, 2024 8:23am [facility] Work Phone: 1(696) 613-480901-29-2025 Evaluation note* Diagnosis Onset Date Resolution Status Admit Date Chronic ulcer of left ankle acute March 30, 2024 1:51pm History of lung cancer acute Ja nuary 2024 1:51pm History of peripheral arteri al [...] 2024 1:55pm History of lung cancer acute [facility] 2024 1:55pm History of peripheral arteri al disease acute May 11, 2024 1:55pm COPD (chronic obstructive pulmonary disease) chronic May 11, 2 025 1:55pm Acidosis, lactic resolved May 222024 3:14pm Acute exacerbation of chroni c obstructive pulmonary disease resolved [facility] 2024 3:14pm Chronic respiratory failure with hypoxia and hypercapnia inactive Apr 2024 3:14pm ABLA (acute blood loss anemia) [...] layer exposed chronic July 13, 2024 2:00pm [facility] Work Phone: 1(818) 781-552601-22-2025 History of Present illness Narrative* Rosalie Martinez PA-C - 03/23/2024 2:00 PM EST Patient: Oswaldo Corley PCP: Mei Cummins MD CC: follow up HPI: Oswaldo Corley 83 year old male, former 02-qiru-wapu smoker, quitting 2002 with PMH significant for [...] needed Albuterol. Patient was recently hospitalized at [facility] for 3 days in January secondary [...] Laterality Date ANGIOGRAM EXTREMITY COLONOSCOPY N/A 09/29/2023 [facility] COLONOSCOPY N/A 10/07/2023 [facility] EGD W/O [facility] SPEC VARICIES INJ N/A 09/29/2023 [facility] EGD W/O [facility] SPEC VARICIES INJ N/A 10/07/2023 [facility] LUNG BIOPSY Left needle biopsy [...] COVID-19 original vaccine, age 12+ yr, monovalent ([employer] - [place] TOP) 07/26/2021 COVID-19 original vaccine, age 12+ yr, monovalent ([employer] - PURPLE TOP) 05/03/2020 05/24/2020 02/06/2021 COVID-19 vaccine, age 12+ yr (PFIZER-BIONTE[employer] COMIRNATY) 12/19/2022 12/23/2023 COVID-19 vaccine, age 12+ yr, bivalent ([employer]) 11/19/2021 influenza (HD-IIV3) vaccine, age 65+ yr, [...] Collected: 10/13/2022 11:15 AM (Final result) Narrative: [facility] [address] [place] [address] Test Date: 2022-10-13 Pat Name: OSWALDO CORLEY Department: Room: Gender: Male 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 Food: : 1940 Requested By: Order Number: [id number] Reading MD: Ab Calvillo MD Interpretive Statements [...] 16:18:16 EDT by Ab Calvillo MD ID: [id number] Name: OSWALDO CORLEY Race: White Ht: 69.20 in Wt: 183.00 lbs Age: 82 Gender: Male : 1940 Dx: COPD_ Smoking Hx: Non-smoker Doctor: AB CALVILLO Test Date: 10/13/2022 Site: Tech: [facility] PRE-BRONCH POST-BRONCH Pre LLN Pred ULN %Pred [...] 0.14 -24 FIVC (L) 3.18 3.01 -5 VUT07-48 (L/sec) 0.45 0.75 1.98 3.80 22 0.41 [...] V58.69, ICD10: Z79.899 Reviewed liver function from [facility] in January 2024. Will check after being on Daliresp for 2-4 weeks. - HEPATIC FUNCTION PNL Portions of this documentation were copied and pasted from previous office visit notes in order to provide a cohesive continuity of the history. The note has been reviewed and edited and updated as necessary. Rosalie Martinez PA-C documented in this encounterMercy Hospital01-22-2025 NoteSum[facility]01-22-2025 Telephone encounter Note* Telephone Encounter - Michelle Syed LPN - 03/23/2024 11:38 AM EST Patients called in and states she noticed the order for the wound center at [place] but they are unable to drive to [place] and is requesting the order be for the [facility] Wound center. Michelle Syed LPN [facility]01-22-2025 Miscellaneous Notes* Telephone Encounter - Michelle Syed LPN - 03/23/2024 11:38 AM EST Patients called in and states she noticed the order for the wound center at [place] but they are unable to drive to [place] and is requesting the order be for the [facility] Wound center. Michelle Syed LPN * Telephone Encounter - Naty Ley RN - 03/22/2024 2:03 PM EST Jeremiah from [facility] calls and states that patient would like referral to wound center to be faxed to [facility]. Fax number is [phone]. Naty Ley RN documented in this encounterMercy Hospital01-21-2025 Telephone encounter Note * Telephone Encounter - Malu Tavares MA - 03/22/2024 2:38 PM EST Jeremiah notified. Will get drawn next week when pt has next visit. Malu Tavares MA [facility]01-21-2025 Miscellaneous Notes* Telephone Encounter - Malu [...] 03/22/2024 1:59 PM EST Jeremiah calling from [facility] to report plan of care for patient and prison will continue to visit patient. 1 time [...] Advise, Naty Ley RN documented in this encounterMercy Hospital01-21-2025 Telephone encounter Note * Telephone Encounter - Mei Cummins MD - 03/22/2024 2:34 PM EST I would suggest checking a BMP to see what his potassium level is and see if he needs any additional replacement. Mei Cummins MD [facility]01-21-2025 Telephone encounter Note* Telephone Encounter - Naty Ley RN - 03/22/2024 2:03 PM EST Jeremiah from [facility] calls and states that patient would like referral to wound center to be faxed to [facility]. Fax number is [phone]. Naty Ley RN [facility]01-21-2025 Telephone encounter Note* Telephone Encounter - Naty Ley RN - 03/22/2024 1:59 PM EST Jeremiah calling from [facility] to report plan of care for patient and prison will continue to visit patient. 1 time [...] Please review and Advise, Naty Ley RN [facility]01-20-2025 [facility]Sum[facility]01[facility] History of Present illness Narrative* Salazar Meraz [...] patient developed apneumothorax. He was transferred to [facility]. PET scan 02/17/2020 done at [facility] demonstrated a 1.2 cm spiculated nodule in [...] He had improvement in symptoms. Admitted to [facility] on 03/25/2023 for hemoptysis. He underwent [...] ongoing oncologic management. Interim history: Was in [facility] for 3 days for exacerbation of COPD in January. September [facility] for 19 days for upper [...] months. (C61) Prostate cancer (HCC) Assessment: -EBRT 2016. -Follows with Dr. Catalan. Plan: -Continue follow [...] necessary. Salazar Meraz DO documented in this encounterMercy Hospital01-16-2025 Telephone encounter Note * Telephone Encounter - Salazar Meraz DO - 03/17/2024 4:01 PM EST Noted. Thank you. Salazar Meraz DO [facility]01-16-2025 Miscellaneous Notes* Telephone Encounter - Salazar [...] symptoms? Salazar Meraz DO documented in this encounterMercy Hospital01-16-2025 Telephone encounter Note * Telephone Encounter - Radha Pearson LPN - 03/17/2024 3:05 PM EST Patient's returned call. Patient always coughs d/t his COPD, nothing excessive and she denies any other respiratory symptoms. Radha Pearson LPN [facility]01-16-2025 Telephone encounter Note* Telephone Encounter - Radha Pearson LPN - 03/17/2024 8:17 AM EST Message left for patient/ to contact office. Radha Pearson LPN [facility]01-15-2025 Telephone encounter Note* Telephone Encounter - Salazar Meraz DO - 03/16/2024 4:[address] scan showed no sign of cancer but there was suggestion of other bronchitis or pneumonia in the right lung. Has he been coughing more than usual or having other exacerbation of respiratory symptoms? Salazar Meraz DO [facility]01-15-2025 Telephone encounter Note* Telephone Encounter - [...] BP 118/60 HR 60s. Michelle Syed LPN [facility]01-15-2025 Miscellaneous Notes* Telephone Encounter - Michelle [...] 60s. Michelle Syed LPN documented in this encounterMercy Hospital01-14-2025 Instructions* Patient Instructions* Juan Carlos Viveros - 03/15/2024 1:49 PM EST Continue with esther documented in this encounterMercy Hospital01-14-2025 [facility]Sum[facility]01-14-2025 History of Present illness Narrative* Juan Carlos [...] 5.0 4.3 - 5.6 % Final Comment: [employer] guidelines indicate that patients with [...] Laterality Date ANGIOGRAM EXTREMITY COLONOSCOPY N/A 09/29/2023 [facility] COLONOSCOPY N/A 10/07/2023 [facility] EGD W/O [facility] SPEC VARICIES INJ N/A 09/29/2023 [facility] EGD W/O [facility] SPEC VARICIES INJ N/A 10/07/2023 [facility] LUNG BIOPSY Left needle biopsy [...] Ulcer Jacy Sunshine LPN documented in this encounterMercy Hospital01-14-2025 NoteSum[facility]01-13-2025 History of Present illness Narrative* Summer Grant [...] PATIENT PRESENTS WITH AN IMPLANTABLE OR ATTACHED OPERATORS TEACHER: No ALLERGIES: Reviewed and unchanged CONTRAST ALLERGY: [...] 2024 TIME: 3:43 PM documented in this encounterMercy Hospital01-13-2025 NoteSum[facility]01-09-2025 NoteSum[facility]01-09-2025 History of Present illness Narrative* Betito Mauro MD - 03/10/2024 3:36 PM EST Images from the original note were not included. Surgery/Procedure Date: 05/13/2022 Surgeon(s)/Proceduralist(s) and Cold Rolling Machine Setter(s): Surgeon(s) and Role: Panel 1: * Alex Rivas MD - Primary Procedure(s): Right ileofemoral and deep femoral endarterectomy with patch angioplasty Right SFA eversion endarterectomy Right common and external iliac artery stent (two 10x60 Absolute Pro nitinol stents. ) Aortogram, partial right leg diagnostic angiography Surgery/Procedure Date: 03/28/2022 Surgeon(s)/Proceduralist(s) and Cold Rolling Machine Setter(s): Surgeon(s) and Role: * Alex Rivas MD - Primary INTERVENTIONAL PROCEDURE: Ultrasound-guided bilateral common femoral access Left common femoral artery catheterization and diagnostic angiography via left sheath- 62746 Aortic catheterization via right common femoral artery -60327 Aortogram with right lower extremity angiogram 10194, 43896 [facility] VISIT Oswaldo Corley [id number] HISTORY OF PRESENT ILLNESS: Mr. Corley is [...] Laterality Date ANGIOGRAM EXTREMITY COLONOSCOPY N/A 09/29/2023 [facility] COLONOSCOPY N/A 10/07/2023 [facility] EGD W/O [facility] SPEC VARICIES INJ N/A 09/29/2023 [facility] EGD W/O [facility] SPEC VARICIES INJ N/A 10/07/2023 [facility] LUNG BIOPSY Left needle biopsy [...] Vascular Surgery Staff 03/10/2024 documented in this encounterMercy Hospital01-02-2025 NoteSum[facility]01-02-2025 History of Present illness Narrative* Jacy Sunshine [...] 5.0 4.3 - 5.6 % Final Comment: [employer] guidelines indicate that patients with [...] Laterality Date ANGIOGRAM EXTREMITY COLONOSCOPY N/A 09/29/2023 [facility] COLONOSCOPY N/A 10/07/2023 [facility] EGD W/O [facility] SPEC VARICIES INJ N/A 09/29/2023 [facility] EGD W/O [facility] SPEC VARICIES INJ N/A 10/07/2023 [facility] LUNG BIOPSY Left needle biopsy [...] Juan Carlos Viveros DPM documented in this encounterMercy Hospital01-02-2025 Instructions* Patient Instructions* Juan Carlos Viveros - 03/03/2024 3:10 PM EST Cleanse wound with saline daily Apply tray to wound daily and secure with guaze. documented in this encounterMercy Hospital01-02-2025 NoteSumma [facility]12-30-2024 Telephone encounter Note* Telephone Encounter - Malu Tavares MA - 02/29/2024 2:59 PM EST Detailed message of below left on Jeremiah's identified and secure VM. Malu Tavares MA [facility]12-30-2024 Miscellaneous Notes* Telephone Encounter - Malu [...] - 02/29/2024 1:44 PM EST Jeremiah from [facility] Home Health calling will resume prison visits for the patient next week, onevisit weekly for 3 weeks. He had been in [facility] for COPD exacerbation. Patient is refusing PT/OT evals. documented in this encounterMercy Hospital12-30-2024 Telephone encounter Note * Telephone Encounter - Mei Cummins MD - 02/29/2024 2:43 PM EST Noted; agree and will follow and sign orders Mei Cummins MD [facility]12-30-2024 Telephone encounter Note* Telephone Encounter - Zen Lopez LPN - 02/29/2024 1:44 PM EST Jeremiah from [facility] Home Health calling will resume prison visits for the patient next week, onevisit weekly for 3 weeks. He had been in [facility] for COPD exacerbation. Patient is refusing PT/OT evals. [facility]12-30-2024 Telephone encounter Note* Telephone Encounter - [...] was identified. 02/29/2024 by Twila Weston APRN.CNP [facility]12-30-2024 Miscellaneous Notes* Telephone Encounter - Twila Weston APRN.CNP - 02/29/2024 7:55 AM EST The following approved medication requests have been transmitted electronically. Requested Prescriptions Signed Prescriptions Disp Refills LORazepam (ATIVAN) 1 mg tablet 90 tablet 2 Sig: Take 1 tablet by mouth three times a day for 90 days. Authorizing Provider: TWILA WESTON APRN.CNP [facility] website checked and validated. All prescriptions have been APPROPRIATELY filled. No suspiciousactivity was identified. 02/29/2024 by Twila Weston APRN.DANELLE * Telephone Encounter - Adriana Ohara LPN [...] 29, 2024 7:21 AM documented in this encounterMercy Hospital12-30-2024 Telephone encounter Note * Telephone Encounter [...] Ohara LPN February 29, 2024 7:21 AM [facility]12-23-2024 [facility]12-20-2024 Evaluation note* Diagnosis Onset Date Resolution Status Admit Date Hypoxia acute February 19, 2024 6:04pm COPD exacerbation inactive [facility] 2023 6:04pm Chronic ulcer of left ankle acute March 30, 2024 1:51pm History of lung cancer acute [facility] 2024 1:51pm History of peripheral arteri al disease acute March 30 1:51pm COPD (chronic obstructive pulmonary disease) chronic March 30, 2024 1:51pm Chronic ulcer of left ankle acute April 27, 2024 2:00pm History of lung cancer acute [facility] 2024 2:00pm History of peripheral arteri al disease acute April 27, 2 025 2:00pm COPD (chronic obstructive pulmonary disease) chronic April 2:00pm Chronic ulcer of left ankle acute May 11, 2024 1:55pm History of lung cancer acute [facility] 2024 1:55pm History of peripheral arteri al disease acute May 11, 2024 1:55pm COPD (chronic obstructive pulmonary disease) chronic May 11, 2 025 1:55pm Acidosis, lactic resolved May 222024 3:14pm Acute exacerbation of chroni c obstructive pulmonary disease resolved [facility] 2024 3:14pm Chronic respiratory failure with hypoxia and hypercapnia inactive [facility] 2024 3:14pm ABLA (acute blood loss anemia) resol faisal June 03, 2024 5:32pm Acute lower gastrointestinal bleeding resolved June 03, 2024 5:32pm 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 Work Phone: 1(224) 169-861812-20-2024 Evaluation note* Diagnosis Onset Date Resolution Status Admit Date Hypoxia acute February 19, 2024 6:04pm COPD exacerbation inactive [facility] 2023 6:04pm Chronic ulcer of left ankle acute March 30, 2024 1:51pm History of lung cancer acute Ja nuary 2024 1:51pm History of peripheral arteri al [...] 2024 1:55pm History of lung cancer acute [facility] 2024 1:55pm History of peripheral arteri al disease acute May 11, 2024 1:55pm COPD (chronic obstructive pulmonary disease) chronic May 11, 025 1:55pm Acidosis, lactic resolved May 222024 3:14pm Acute exacerbation of chroni c obstructive pulmonary disease resolved [facility] 2024 3:14pm Chronic respiratory failure with hypoxia and hypercapnia inactive [facility] 2024 3:14pm ABLA (acute blood loss anemia) resol faisal June 03, 2024 5:32pm Acute lower gastrointestinal bleeding resolved June 03, 2024 5:32pm Anemia acute June 08 2:55pm Angiodysplasia of gastrointestinal tract acute May 2:55pm 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 Work Phone: 1(410) 229-775512-19-2024 Telephone encounter Note* Telephone Encounter - Mei Cummins MD - 02/18/2024 2:40 PM EST Noted and agree Mei Cummins MD [facility]12-19-2024 Miscellaneous Notes* Telephone Encounter - Mei Cummins MD - 02/18/2024 2:40 PM EST Noted and agree Mei Cummins MD * Telephone Encounter - Naty Ley RN - 02/18/2024 1:45 PM EST Jeremiah from [facility] calls and states that he re-certified patient for wound care. Patient does not want visits next week due to the holiday but starting on 02/28/2024 senior living will visit patient 1 time a week for 4 weeks for wound care to ankle. No call back needed. Naty Ley RN documented in this encounterMercy Hospital12-19-2024 Telephone encounter Note * Telephone Encounter - Naty Ley RN - 02/18/2024 1:45 PM EST Jeremiah from [facility] calls and states that he re-certified patient for wound care. Patient does not want visits next week due to the holiday but starting on 02/28/2024 senior living will visit patient 1 time a week for 4 weeks for wound care to ankle. No call back needed. Naty Ley RN [facility]12-17-2024 Instructions* Patient Instructions* Juan Carlos Viveros - 02/16/2024 11:47 AM EST Continue with santyl Would recommend lightly applied néstor wrap documented in this encounterMercy Hospital12-17-2024 NoteSumma [facility]12-17-2024 History of Present illness Narrative* Juan Carlos [...] 5.0 4.3 - 5.6 % Final Comment: [employer] guidelines indicate that patients with [...] Laterality Date ANGIOGRAM EXTREMITY COLONOSCOPY N/A 09/29/2023 [facility] COLONOSCOPY N/A 10/07/2023 [facility] EGD W/O [facility] SPEC VARICIES INJ N/A 09/29/2023 [facility] EGD W/O [facility] SPEC VARICIES INJ N/A 10/07/2023 [facility] LUNG BIOPSY Left needle biopsy [...] Ulcer Jacy Sunshine LPN documented in this encounterMercy Hospital12-17-2024 NoteSumma [facility]12-13-2024 Telephone encounter Note* Telephone Encounter - Mei Cummins MD - 02/12/2024 3:40 PM EST OK to refill as ordered Mei Cummins MD [facility]12-13-2024 Miscellaneous Notes* Telephone Encounter - Mei [...] 12, 2024 3:08 PM documented in this encounterMercy Hospital12-13-2024 Telephone encounter Note * Telephone Encounter [...] Tavares MA February 12, 2024 3:[address] [facility]12-12-2024 Evaluation note* Diagnosis Onset Date Resolution Status Admit Date Acute anemia acute January 12:24pm Chronic peptic ulcer with bleeding chronic February 10, 2 024 12:24pm Hypoxia acute February 19, 2024 6:04pm COPD exacerbation inactive [facility] 2023 6:04pm Chronic ulcer of left ankle acute March 30, 2024 1:51pm History of lung cancer acute [facility] 2024 1:51pm History of peripheral arterial disease acute March 30, 2 025 1:51pm COPD (chronic obstructive pulmonary disease) chronic March 30, 2024 1:51pm Chronic ulcer of left ankle acute April 27, 2024 2:00pm History of lung cancer acute [facility]2024 2:00pm History of peripheral arterial disease acute April 27, 2024 2:00pm COPD (chronic obstructive pulmonary disease) chronic April 2:00pm Chronic ulcer of left ankle acute May 11, 2024 1:55pm History of lung cancer acute [facility] 2024 1:55pm History of peripheral arterial disease acute May 11 1:55pm COPD (chronic obstructive pulmonary disease) chronic May 11, 2 025 1:55pm Acidosis, lactic acute May 222024 3:14pm Acute exacerbation of chroni c obstructive pulmonary disease chronic [facility] 2024 3:14pm Chronic respiratory failure with hypoxia and hypercapnia chronic [facility] 2024 3:14pm [facility] Work Phone: 1(580) 816-488812-12-2024 Evaluation note* Diagnosis Onset Date Resolution Status Admit Date Acute anemia acute January 12:24pm Chronic peptic ulcer with bleeding chronic February 10, 2 024 12:24pm Hypoxia acute February 19, 2024 6:04pm COPD exacerbation inactive [facility] 2023 6:04pm Chronic ulcer of left ankle acute March 30, 2024 1:51pm History of lung cancer acute [facility] 2024 1:51pm History of peripheral arteri al disease acute March 30 1:51pm COPD (chronic obstructive pulmonary disease) chronic March 30, 2024 1:51pm Chronic ulcer of left ankle acute April 27, 2024 2:00pm History of lung cancer acute [facility] 2024 2:00pm History of peripheral arteri al disease acute April 27 025 2:00pm COPD (chronic obstructive pulmonary disease) chronic April 2:00pm Chronic ulcer of left ankle acute May 11, 2024 1:55pm History of lung cancer acute [facility] 2024 1:55pm History of peripheral arteri al disease acute May 11, 2024 1:55pm COPD (chronic obstructive pulmonary disease) chronic May 11 025 1:55pm Acidosis, lactic resolved May 222024 3:14pm Acute exacerbation of chroni c obstructive pulmonary disease resolved [facility] 2024 3:14pm Chronic respiratory failure with hypoxia and hypercapnia inactive [facility] 2024 3:14pm 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 Work Phone: 1(736) 790-885112-12-2024 Evaluation note* Diagnosis Onset Date Resolution Status Admit Date Acute anemia acute January 12:24pm Chronic peptic ulcer with bleeding chronic February 10 024 12:24pm Hypoxia acute February 19, 2024 6:04pm COPD exacerbation inactive [facility] 2023 6:04pm Chronic ulcer of left ankle acute March 30, 2024 1:51pm History of lung cancer acute [facility] 2024 1:51pm History of peripheral arteri al disease acute March 30 1:51pm COPD (chronic obstructive pulmonary disease) chronic March 30, 2024 1:51pm Chronic ulcer of left ankle acute April 27, 2024 2:00pm History of lung cancer acute [facility] 2024 2:00pm History of peripheral arteri al disease acute April 27 025 2:00pm COPD (chronic obstructive pulmonary disease) chronic April 2:00pm Chronic ulcer of left ankle acute May 11, 2024 1:55pm History of lung cancer acute [facility] 2024 1:55pm History of peripheral arteri al disease acute May 11, 2024 1:55pm COPD (chronic obstructive pulmonary disease) chronic May 11 1:55pm Acidosis, lactic resolved May 222024 3:14pm Acute exacerbation of chroni c obstructive pulmonary disease resolved [facility] 2024 3:14pm Chronic respiratory failure with hypoxia and hypercapnia inactive [facility] 2024 3:14pm 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 Work Phone: 1(966) 848-656112-09-2024 Telephone encounter Note* Telephone Encounter - Tyrell Lamar LPN - 02/08/2024 12:01 PM EST JOSE M: 01/19/24 Patient phones requesting refills as follows: Requested Prescriptions Pending Prescriptions Disp Refills predniSONE (DELTASONE) 10 mg tablet 30 tablet 5 Sig: Take 1 tablet by mouth once daily. Please review and advise. Tyrell Lamar LPN [facility]12-09-2024 Miscellaneous Notes* Telephone Encounter - Tyrell Lamar LPN - 02/08/2024 12:01 PM EST JOSE M: 01/19/24 Patient phones requesting refills as follows: Requested Prescriptions Pending Prescriptions Disp Refills predniSONE (DELTASONE) 10 mg tablet 30 tablet 5 Sig: Take 1 tablet by mouth once daily. Please review and advise. Tyrell Lamar LPN documented in this encounterMercy Hospital12-06-2024 NoteSum[facility]12-06-2024 History of Present illness Narrative* Betito Mauro MD - 02/05/2024 11:24 AM EST Images from the original note were not included. Surgery/Procedure Date: 05/13/2022 Surgeon(s)/Proceduralist(s) and Cold Rolling Machine Setter(s): Surgeon(s) and Role: Panel 1: * Alex Rivas MD - Primary Procedure(s): Right ileofemoral and deep femoral endarterectomy with patch angioplasty Right SFA eversion endarterectomy Right common and external iliac artery stent (two 10x60 Absolute Pro nitinol stents. ) Aortogram, partial right leg diagnostic angiography Surgery/Procedure Date: 03/28/2022 Surgeon(s)/Proceduralist(s) and Cold Rolling Machine Setter(s): Surgeon(s) and Role: * Alex Rivas MD - Primary INTERVENTIONAL PROCEDURE: Ultrasound-guided bilateral common femoral access Left common femoral artery catheterization and diagnostic angiography via left sheath- 40160 Aortic catheterization via right common femoral artery -63725 Aortogram with right lower extremity angiogram 92254, [address]247 [facility] VISIT Oswaldo Corley [id number] HISTORY OF PRESENT ILLNESS: Mr. Corley is [...] Laterality Date ANGIOGRAM EXTREMITY COLONOSCOPY N/A 09/29/2023 [facility] COLONOSCOPY N/A 10/07/2023 [facility] EGD W/O [facility] SPEC VARICIES INJ N/A 09/29/2023 [facility] EGD W/O [facility] SPEC VARICIES INJ N/A 10/07/2023 [facility] LUNG BIOPSY Left needle biopsy [...] Vascular Surgery Staff 02/05/2024 documented in this encounterMercy Hospital12-04-2024 History of Present illness Narrative* Radha [...] PATIENT PRESENTS WITH AN IMPLANTABLE OR ATTACHED OPERATORS TEACHER: No RADIOLOGY DEPARTMENT: CT; Exam(s) Completed: CTA Aorta/leg runoff PERIPHERAL IV DATA: Site assessment: Clean,Dry and Intact, Site disposition Discontinued SIGNED BY: KATT Bahena February 03, 2024 2:45 PM documented in this encounterMercy Hospital12-04-2024 Nurse Note* Elmira Mendez RN - [...] DATE: February 03, 2024 TIME: 2:40 PM [facility]12-04-2024 Nurse Note* Elmira Mendez RN - [...] 2024 TIME: 2:40 PM documented in this encounterMercy Hospital11-21-2024 NoteSum[facility]11-21-2024 History of Present illness Narrative* Juan Carlos [...] 5.0 4.3 - 5.6 % Final Comment: [employer] guidelines indicate that patients with [...] Laterality Date ANGIOGRAM EXTREMITY COLONOSCOPY N/A 09/29/2023 [facility] COLONOSCOPY N/A 10/07/2023 [facility] EGD W/O [facility] SPEC VARICIES INJ N/A 09/29/2023 [facility] EGD W/O [facility] SPEC VARICIES INJ N/A 10/07/2023 [facility] LUNG BIOPSY Left needle biopsy [...] Ulcer Jacy Sunshine LPN documented in this encounterMercy Hospital11-21-2024 Telephone encounter Note * Telephone Encounter - Malu Tavares MA - 01/21/2024 12:03 PM EST Detailed message left on Jeremiah's identified vm. Malu Tavares MA [facility]11-21-2024 Miscellaneous Notes* Telephone Encounter - Malu [...] Jackson RN - 01/20/2024 1:15 PM EST Jeremiah nurse @ [facility] calling to request verbal okay to extend nursing visits x three weeks for continued wound care. # [phone] Shara Jackson RN documented in this encounterMercy Hospital11-21-2024 Instructions* Patient Instructions* Juan Carlos Viveros - 01/21/2024 11:25 AM EST Continue with santyl Continue with light compression, perhaps by way of tubigrip Await vascular recommendations. documented in this encounterMercy Hospital11-21-2024 NoteSumma [facility]11-21-2024 Telephone encounter Note* Telephone Encounter - Mei Cummins MD - 01/21/2024 11:04 AM EST OK for verbal okay to extend nursing visits x three weeks for continued wound care. Mei Cummins MD [facility]11-20-2024 Telephone encounter Note* Telephone Encounter - Shara Jackson RN - 01/20/2024 1:15 PM EST Jeremiah nurse @ [facility] calling to request verbal okay to extend nursing visits x three weeks for continued wound care. # [phone] Shara Jackson RN [facility]11-19[facility] History of Present illness Narrative* Kailash Cordova APRN.MEDICAL DEVICE ASSEMBLER - 01/19/2024 1:00 PM EST Images from [...] and pleural findings as per results. Cholelithiasis. Rn Internal Medicine: PSCB Transcribe Date/Time: Jan 18 2024 1:28P Dictated by : MEI CAMEJO MD This examination was interpreted and the report reviewed and electronically signed by: MEI CAMEJO MD on Jan 18 2024 2:15PM EST Results-Findings * * *Final Report* * * DATE OF EXAM: Jan 12 2024 1:24PM [facility] 0541 - CT CHEST WO IVCON [...] Neut (k/uL) Date Value 12/08/2023 11.33 Abs Weld (k/uL) Date Value 12/08/2023 0.37 04/23/2021 0.57 [...] which included preparing to see the patient, [id number] patient care, completing clinical documentation, performing a medically appropriate examination, counseling and educating the patient/family/caregiver, ordering medications, tests, or p rocedures, and communicating results to the patient/family/caregiver. documented in this encounterMercy Hospital11-19-2024 NoteSum[facility]11-12-2024 History of Present illness Narrative* Summer Grant [...] PATIENT PRESENTS WITH AN IMPLANTABLE OR ATTACHED OPERATORS TEACHER: No RADIOLOGY DEPARTMENT: CT; Exam(s) Completed: Chest PERIPHERAL IV DATA: Not applicable SIGNED BY: RT Joey(R) January 12, 2024 1:43 PM documented in this encounterSarah Ville [address]-12-2024 NoteSumma [facility]11-08-2024 Telephone encounter Note* Telephone Encounter - Malu Tavares MA - 01/08/2024 10:03 AM EST Detailed message of below left on Sunshine's identified and confidential VM. Malu Tavares MA [facility]11-08-2024 Miscellaneous Notes* Telephone Encounter - Malu [...] 01/08/2024 9:33 AM EST Sunshine calling from [facility], patient was seen at [facility] ER for a fall with open laceration to his head.They are working on falls at [facility] and would like to send HH PT to patients home for a evaluation. Asking if PCP can order for PT eval to go out next week. Please advise. documented in this encounterMercy Hospital11-08-2024 Telephone encounter Note * Telephone Encounter - Mei Cummins MD - 01/08/2024 9:54 AM EST OK to give verbal order for HH PT to evaluate Mei Cummins MD [facility]11-08-2024 Telephone encounter Note* Telephone Encounter - Krystal Aviles LPN - 01/08/2024 9:33 AM EST Sunshine calling from [facility], patient was seen at [facility] ER for a fall with open laceration to his head.They are working on falls at [facility] and would like to send PT to patients home for a evaluation. Asking if PCP can order for PT eval to go out next week. Please advise. [facility]11-05-2024 Telephone encounter Note* Telephone Encounter - Alethea Childress RN - 01/05/2024 3:29 PM EST Spoke with patient and and informed of plan. Once ordered placed will call to assist with scheduling the CT scan [facility]11-05-2024 Miscellaneous Notes* Telephone Encounter - Alethea [...] with update on plan. documented in this encounterMercy Hospital11-05-2024 History of Present illness Narrative* Kelsea Miller RT(R) - 01/05/2024 2:00 PM EST Radiology [...] PATIENT PRESENTS WITH AN IMPLANTABLE OR ATTACHED OPERATORS TEACHER: No RADIOLOGY DEPARTMENT: General X-ray: Exam(s) Completed: Lower Extremity X- Ray(s): Ankle, Left PERIPHERAL IV DATA: Not applicable SIGNED BY: RT Isai(R) January 05, 2024 1:55 PM documented in this encounterMercy Hospital11-05-2024 NoteSumma [facility]11-05-2024 Telephone encounter Note* Telephone Encounter - Alethea [...] Will contact patient with update on plan. [facility]11-05-2024 Instructions* Patient Instructions* Juan Carlos Viveros - 01/05/2024 1:16 PM EST Continue with santyl to left leg Recommend tubigrip to left leg daily. Can remove prior to bed. documented in this encounterMercy Hospital11-05-2024 NoteSumma Health [facility]11-05-2024 History of Present illness Narrative* Juan Carlos Viveros - 01/05/2024 1:06 PM EST FOLLOW UP PODIATRIC OFFICE VISIT Chief Complaint: This 83 year old who presents for follow up:left medial ankle ulceration Patient presents to clinic for follow-up left medial leg ulceration Currently applying santyl to the ulceration Reports pain as / PAIN EVALUATION 01/05/2024 1304 Pain Level: 3 Pain Location: Ankle-Left Description: Sharp Duration Units: Weeks Frequency: Intermittent Intervention/Comfort measure: Relaxation;Reposition Hemoglobin A1C Date Value Ref Range Status 06/24/2022 5.0 4.3 - 5.6 % Final Comment: [place] [employer] guidelines indicate that patients with [...] Laterality Date ANGIOGRAM EXTREMITY COLONOSCOPY N/A 09/29/2023 [facility] COLONOSCOPY N/A 10/07/2023 [facility] EGD W/O [facility] SPEC VARICIES INJ N/A 09/29/2023 [facility] EGD W/O [facility] SPEC VARICIES INJ N/A 10/07/2023 [facility] LUNG BIOPSY Left needle biopsy [...] unchanged from previous visit. Non-Invasive Vascular Laboratory [facility] Lower Extremity Arterial Physiology Study Bilateral/Complete Date [...] at rest. Technologist: Colleen Da Silva RVT [facility] Dermatological: Ulceration #1 Location: left medial ankle [...] Ulcer Jacy Sunshine LPN documented in this encounterMercy Hospital11-05-2024 NoteSum[facility]10-24-2024 NoteSumma Health [facility] Campus10-24-2024 History of Present illness Narrative* Jacy Sunshine [...] 5.0 4.3 - 5.6 % Final Comment: [place] [employer] guidelines indicate that patients with [...] Laterality Date ANGIOGRAM EXTREMITY COLONOSCOPY N/A 09/29/2023 [facility] COLONOSCOPY N/A 10/07/2023 [facility] EGD W/O [facility] SPEC VARICIES INJ N/A 09/29/2023 [facility] EGD W/O [facility] SPEC VARICIES INJ N/A 10/07/2023 [facility] LUNG BIOPSY Left needle biopsy [...] unchanged from previous visit. Non-Invasive Vascular Laboratory [facility] Lower Extremity Arterial Physiology Study Bilateral/Complete Date [...] at rest. Technologist: Colleen Da Silva RVT, [facility] Ordering physician: TYRELL VIGIL Interpreting physician: VIRA [...] Ulcer Jacy Sunshine LPN documented in this encounterMercy Hospital10-24-2024 Instructions* Patient Instructions* Juan Carlos Viveros - 12/24/2023 3:52 PM EDT Continue with santyl documented in this encounterMercy Hospital10-24-2024 [facility]10-24-2024 [facility]10-23-2024 Instructions* Patient Instructions* Twila Weston APRN.MEDICAL DEVICE ASSEMBLER - 12/23/2023 1:55 PM EDT Get fasting [...] or sooner as needed. documented in this encounterMercy Hospital10-23-2024 History of Present illness Narrative* Twila Weston APRN.MEDICAL DEVICE ASSEMBLER - 12/23/2023 1:40 PM EDT This is [...] Laterality Date ANGIOGRAM EXTREMITY COLONOSCOPY N/A 09/29/2023 [facility] COLONOSCOPY N/A 10/07/2023 [facility] EGD W/O [facility] SPEC VARICIES INJ N/A 09/29/2023 [facility] EGD W/O [facility] SPEC VARICIES INJ N/A 10/07/2023 [facility] LUNG BIOPSY Left needle biopsy [...] home oxygen. - Keep scheduled appointments with drum barker operator. 2. Essential hypertension - ICD9: 401.9, ICD10: I10 - Controlled - Continue current medications - Recommend home blood pressure monitoring, to bring results to next visit - Encouraged sodium restriction, DASH or Mediterranean diet - Recommend regular aerobic exercise 3. 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 Discussed treatment plan and patient voices understanding. Patient's questions answered appropriately. Medications and potential side effects were discussed and patient voices understanding. Twila Weston APRN.CNP This note was partially generated using Assurely voice recognition system. Note was reviewed for accuracy. There may be minor misspellings or grammar miscues with Assurely voice recognition. documented in this encounterMercy Hospital10-23-2024 NoteSumma Health [facility] Campus10-22-2024 Telephone encounter Note* Telephone Encounter - Jamshid Brown APRN.CNP - 12/22/2023 11:46 AM EDT Noted and agree. Jamshid Brown APRN.CNP [facility]10-22-2024 Miscellaneous Notes* Telephone Encounter - Jamshid Brown APRN.CNP - 12/22/2023 11:46 AM EDT Noted and agree. Jamshid Brown APRN.CNP * Telephone Encounter - Naty Ley RN - 12/22/2023 11:39 AM EDT Jeremiah from [facility] calling to report plan of care for patient and prison will continue to visit 1 time a week for 4 weeks. senior living will continue to work with patient on wound care. No call back needed. Naty Ley RN documented in this encounterMercy Hospital10-22-2024 Telephone encounter Note * Telephone Encounter - Naty Ley RN - 12/22/2023 11:39 AM EDT Jeremiah from [facility] calling to report plan of care for patient and prison will continue to visit 1 time a week for 4 weeks. senior living will continue to work with patient on wound care. No call back needed. Naty Ley RN [facility]10-21-2024 History of Present illness Narrative* Bela Manzano MD - 12/21/2023 1:00 PM EDT Images from the original note were not included. [facility] SECTION OF REGIONAL CARDIOLOGY Cardiology ([facility]) [address] [id number] OUTPATIENT VISIT DATE 12/21/2023 PRIMARY CARE PHYSICIAN: Mei Cummins [address] [place] [address] HISTORY OF PRESENT ILLNESS: Mr. Corley is [...] for routine follow-up. Patient was admitted to [facility] in September with anemia, GI bleed, [...] Laterality Date ANGIOGRAM EXTREMITY COLONOSCOPY N/A 09/29/2023 [facility] COLONOSCOPY N/A 10/07/2023 [facility] EGD W/O [facility] SPEC VARICIES INJ N/A 09/29/2023 [facility] EGD W/O [facility] SPEC VARICIES INJ N/A 10/07/2023 [facility] LUNG BIOPSY Left needle biopsy [...] OM2. The OM2 fills competitively from the bishop paiute LCX and the SVG. RCA: Dominant vessel [...] Gated Stress IR:3D LVEF % [address] [facility] 03/25/2023: Normal LV size. Estimated [...] - Exam was compared with the prior CC echocardiographic exam performed on 09/23/10. The mitral [...] left maincoronary artery. Most recent cardiac catheterization 2016 as [...] AND RECOMMENDATIONS:\ 1. 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 Kailash Cordova APRN.CNP [facility]10-15-2024 Miscellaneous Notes* Telephone Encounter - Kailash [...] Patient and verbalized understanding. Kailash Cordova APRN.CNP * Telephone Encounter - Marsha Arboleda MA [...] or spouse can be reached back at [phone]. documented in this encounterMercy Hospital10-15-2024 Telephone encounter Note * Telephone Encounter [...] or spouse can be reached back at [phone]. [facility]10-11-2024 Telephone encounter Note* Telephone Encounter - Yazmin Tatum OCCA - 12/11/2023 2:35 PM EDT TC to Teresa with [facility] and no answer. Left detailed VM on secure and confidential VM with providers instructions below. Left office number for return call if any further questions. SERENA Garcia [facility]10-11-2024 Miscellaneous Notes* Telephone Encounter - Yazmin Tatum OCCA - 12/11/2023 2:35 PM EDT TC to Teresa with [facility] and no answer. Left detailed VM on secure and confidential VM with providers instructions below. Left office number for return call if any further questions. SERENA Garcia * Telephone Encounter - Twila Weston APRN.DANELLE - 12/11/2023 2:14 PM EDT Can you please call the patient back and let him know that I would recommend taking his metoprolol if the heart rate is greater than 100. Thank you Twila Weston APRN.MEDICAL DEVICE ASSEMBLER * Telephone Encounter - Padma Butler LPN [...] advise Padma Butler LPN documented in this encounterMercy Hospital10-11-2024 Telephone encounter Note * Telephone Encounter - Twila Weston APRN.DANELLE - 12/11/2023 2:14 PM EDT Can you please call the patient back and let him know that I would recommend taking his metoprolol if the heart rate is greater than 100. Thank you Twila Weston APRN.MEDICAL DEVICE ASSEMBLER [facility] Work Phone: [phone]) 129-577910-11-2024 Telephone encounter Note* Telephone Encounter - Padma [...] Please review and advise Padma Butler LPN [facility]10-11-2024 Telephone encounter Note* Telephone Encounter - Brigette Campos RN - 12/11/2023 1:[address] [facility] home care called with update. They will continue to see him once a week for 2 more weeks and then they will recert him for his wound care. Brigette Campos, GILMAR [facility]10-11-2024 Miscellaneous Notes* Telephone Encounter - Brigette Campos RN - 12/11/2023 1:[address] [facility] home care called with update. They will continue to see him once a week for 2 more weeks and then they will recert him for his wound care. Brigette Campos, RN documented in this encounterMercy Hospital10-08-2024 Instructions* Patient Instructions* Kailash Cordova APRN.CNP [...] that suggest worsening pneumonia. documented in this encounterMercy Hospital10-08-2024 History of Present illness Narrative* Kailash [...] (attempted to combine therapy with Trelegy at [facility] but patient did not tolerate). He is also on chronic oral steriods, utilizesmucous clearance techniques, vest therapy and supplemental O2. He was admitted to [facility] 09/27-09/29 for acute hypoxia due [...] services through hospice for his SOB. DME: [employer] Currently wearing 5L O2 continuously [...] according to line specific nursing protocol in theTX contrast administration guidelines link. * iv contrast [...] 5. Borderline enlarged AP window lymph node Rn Internal Medicine: ARTEM Transcribe Date/Time: Nov 18 2023 1:24P Dictated by : MIRNA MILTON MD This examination was interpreted and the report reviewed and electronically signed by: MIRNA MILTON MD on Nov 18 2023 1:41PM EST Results-Findings * * *Final Report* * * DATE OF EXAM: Nov 13 2023 3:25PM [facility] 0539 - CT CHEST W IVCON [...] 11/12 showing new SULAIMAN pneumonia. Review of [facility] chest CT on 10/04 without [...] tolerate Trelegy) - uses oxycodone through [facility] for SOB 5. Chronic hypoxemic respiratory failure [...] and updated as necessary. Kailash Cordova APRN.DANELLE documented in this encounterMercy Hospital10-08-2024 NoteSum[facility]10-07-2024 Instructions* Patient Instructions* Juan Carlos Viveros - 12/07/2023 2:44 PM EDT Cleanse wound daily with saline Apply santyl and 2 x 2 guaze Light tubigrip Avoid shoes that rub Follow-up in 2-3 weeks documented in this encounterMercy Hospital10-07-2024 NoteSum[facility]10-07-2024 History of Present illness Narrative* Juan Carlos [...] 5.0 4.3 - 5.6 % Final Comment: [place] [employer] guidelines indicate that patients with [...] Pain Jacy Sunshine LPN documented in this encounterMercy Hospital10-07-2024 NoteSum[facility]10-04-2024 Telephone encounter Note* Telephone Encounter - Tyrell Lamar LPN - 12/04/2023 1:01 PM EDT Provider aware Tyrell Lamar LPN [facility]10-04-2024 Miscellaneous Notes* Telephone Encounter - Tyrell [...] discharge. Tyrell Lamar LPN documented in this encounterMercy Hospital10-04-2024 Telephone encounter Note * Telephone Encounter - Arpita Cano - 12/04/2023 9:37 AM EDT Patient is scheduled for hospital follow up with Kailash on 12/07, however patient is denying doing th oximetry test, states he cannot do it. Please review and advise. Arpita Cano December 04, 2023 9:38 AM [facility]10-02-2024 Telephone encounter Note* Telephone Encounter - Tyrell Lamar LPN - 12/02/2023 2:51 PM EDT Per DC summary available in scanned documents, patient required 4L at rest and 6L with exertion at time of discharge. Last in office oximetry is from 10/2022. Patient has not followed up since discharge. Tyrell Lamar LPN [facility]09-26-2024 Telephone encounter Note* Telephone Encounter - Zen Lopez LPN - 11/26/2023 9:53 AM EDT Sarah Alfonso left detailed message with orders, notes below from Dr Cummins on voicemail. [facility]-26-2024 Miscellaneous Notes* Telephone Encounter - Zen Lopez LPN - 11/26/2023 9:53 AM EDT Sarah Alfonso left detailed message with orders, notes below from Dr Cummins on voicemail. * Telephone Encounter - Mei Cummins MD - 11/26/2023 9:44 AM EDT OK for AIDA phillips as requested. He may use OTC saline eye drops for the eyes. Mei Cummins MD * Telephone Encounter - Coco Arriaga RN - 11/25/2023 3:14 PM EDT Naty, [facility] Nurse calling with the following: States she [...] with any recommendations. Call Naty with reply: [phone]. Thank you. documented in this encounterMercy Hospital09-26-2024 Telephone encounter Note * Telephone Encounter - Mei Cummins MD - 11/26/2023 9:44 AM EDT OK for HH phillips as requested. He may use OTC saline eye drops for the eyes. Mei Cummins MD [facility]09-26-2024 Telephone encounter Note* Telephone Encounter - Yina Stringer RN - 11/26/2023 8:59 AM EDT Called Naty from [facility] home care. Verbal order confirmation given for wound care. [facility]-26-20[facility] Telephone encounter Note* Telephone Encounter - Yina Stringer RN - 11/26/2023 8:59 AM EDT Images from the original note were not included. Juan Carlos Viveros [facility] Podiatry Pool10 hours ago (10:50 PM) Patient is to apply santyl to left ankle wound daily followed by guaze wrap. Juan Carlos Viveros DPM [facility]09-26-2024 Miscellaneous Notes* Telephone Encounter - Yina Stringer RN - 11/26/2023 8:59 AM EDT Called Naty from [facility] home care. Verbal order confirmation given for wound care. * Telephone Encounter - Yina Stringer RN - 11/26/2023 8:59 AM EDT Images from the original note were not included. Juan Carlos Viveros [facility] Podiatry Pool10 hours ago (10:50 PM) Patient is to apply santyl to left ankle wound daily followed by guaze wrap. Juan Carlos Viveros DPM * Telephone Encounter - Jocelin Marquez MA - 11/25/2023 3:59 PM EDT Naty from [facility] calling and states they need wound care orders for the patient. documented in this encounterMercy Hospital09-25-2024 Telephone encounter Note * Telephone Encounter - Jocelin Marquez MA - 11/25/2023 3:59 PM EDT Naty from [facility] calling and states they need wound care orders for the patient. [facility]09-25-2024 Telephone encounter Note* Telephone Encounter - Coco Arriaga RN - 11/25/2023 3:14 PM EDT Naty [facility] Nurse calling with the following: States she [...] with any recommendations. Call Naty with reply: [phone]. Thank you. [facility]09-25-2024 Telephone encounter Note* Telephone Encounter - Alethea Childress RN - 11/25/2023 10:30 AM EDT Contacted patient as requested by Dr. Vigil to offer appt with [place] provider to discuss wound concerns and possible need for intervention. Patient is currently seeing Dr. Viveros and he contact Dr. Vigil. Per patient and , he is not up for coming to [place]. He was recently d/c from the [facility] and is not up for appt. They are going to follow wound orders from Dr. Viveros to see if there is any improvement. They will call office to schedule appt in [place] if wound worsens [facility]-25-2024 Miscellaneous Notes* Telephone Encounter - Alethea Childress RN - 11/25/2023 10:30 AM EDT Contacted patient as requested by Dr. Vigil to offer appt with [place] provider to discuss wound concerns and possible need for intervention. Patient is currently seeing Dr. Viveros and he contact Dr. Vigil. Per patient and , he is not up for coming to [place]. He was recently d/c from the hospital and is not up for appt. They are going to follow wound orders from Dr. Viveros to see if there is any improvement. They will call office to schedule appt in [place] if wound worsens documented in this encounterMercy Hospital09-23-2024 History of Present illness Narrative* Raven [...] PATIENT PRESENTS WITH AN IMPLANTABLE OR ATTACHED OPERATORS TEACHER: No RADIOLOGY DEPARTMENT: General X-ray: Exam(s) Completed: Lower Extremity X- Ray(s): Ankle, Left PERIPHERAL IV DATA: Not applicable SIGNED BY: RT Eduard(R) November 23, 2023 11:23 AM documented in this encounterMercy Hospital09-23-2024 [facility]09-23-2024 Instructions* Patient Instructions* Juan Carlos Viveros - 11/23/2023 11:00 AM EDT Cleanse wound daily with saline Dry thoroughly Apply santyl to left ankle wound Secure with 2 x2 guaze and nonadherent dressing. documented in this encounterMercy Hospital09-23-2024 [facility]09-23-2024 History of Present illness Narrative* Juan Carlos [...] growth absent to digits Non-Invasive Vascular Laboratory [facility] Lower Extremity Arterial Physiology Study Bilateral/Complete Date [...] Viveros DPM Podiatry [address] [facility] [address] Dept: [phone] Dept * Yina Stringer RN - 11/23/2023 [...] some. JOSE M 11/18/22 documented in this encounterMercy Hospital09-23-2024 NoteSumma [facility]09-23-2024 Telephone encounter Note* Telephone Encounter - Naty Villarreal - 11/23/2023 9:04 AM EDT Spoke with patient's and scheduled as directed. Naty Villarreal [facility]09-23-2024 Miscellaneous Notes* Telephone Encounter - Naty [...] months. Salazar Meraz DO documented in this encounterMercy Hospital09-23-2024 Telephone encounter Note * Telephone Encounter - Radha Pearson LPN - 11/23/2023 8:39 AM EDT Patient's is aware of all information. PSS- please contact patient to schedule as directed below. Radha Pearson LPN [facility]09-22-2024 Telephone encounter Note* Telephone Encounter - Salazar Meraz DO - 11/22/2023 1:28 PM EDT Can let him know that the CT scan of the chest he recently had done overall shows stable findings. Recommend repeat Cr, CT chest with IV contrast followed by office visit in about 3 to 4 months. Salazar Meraz DO [facility]09-19-2024 NoteSumma [facility]09-19-2024 History of Present illness Narrative* Andrés Morocho APRN.MEDICAL DEVICE ASSEMBLER - 11/19/2023 3:59 PM EDT Images from the original note were not included. This note was created using UNY[employer]riter. Subjective Oswaldo Corley is a 83 year [...] Resp 24 Wt 73.5 kg (162 lb) IcB331% BMI 22.59 kg/m Physical Exam Vitals and [...] reevaluation. Andrés Morocho APRN.CNP documented in this encounterMercy Hospital09-16-2024 Telephone encounter Note * Telephone Encounter - Jamshid Brown APRN.CNP - 11/16/2023 2:10 PM EDT Noted Jamshid Brown APRN.CNP [facility]09-16-2024 Miscellaneous Notes* Telephone Encounter - Jamshid Brown APRN.CNP - 11/16/2023 2:10 PM EDT Noted Jamshid Brown APRN.CNP * Telephone Encounter - Zen Lopez LPN - 11/16/2023 2:05 PM EDT Amber from [facility] Home Health calling with OT plan of care, 1 visit this week and next, then 2 visits weekly for 1 week working on safety and function of his left arm. No need for return call. documented in this encounterMercy Hospital09-16-2024 Telephone encounter Note * Telephone Encounter - Zen Lopez LPN - 11/16/2023 2:05 PM EDT Amber from [facility] calling with OT plan of care, 1 visit this week and next, then 2 visits weekly for 1 week working on safety and function of his left arm. No need for return call. [facility]09-04[facility]24 Telephone encounter Note* Telephone Encounter - Jamshid Brown APRN.CNP - 11/04/2023 1:34 PM EDT Noted and agree with HH Jamshid Brown APRN.CNP [facility]09-04-2024 Miscellaneous Notes* Telephone Encounter - Jamshid Brown APRN.CNP - 11/04/2023 1:34 PM EDT Noted and agree with AIDA Brown APRN.MEDICAL DEVICE ASSEMBLER * Telephone Encounter - Shara Jackson RN - 11/04/2023 1:26 PM EDT Amber OT @ [facility] calling with plan of care. OT will continue to see patient 1 x/week for three weeks for O2 line management with walker ambulation. If agree, no need to call back. Shara Jackson RN documented in this encounterMercy Hospital09-[facility]-2024 Telephone encounter Note * Telephone Encounter - Shara Jackson RN - 11/04/2023 1:26 PM EDT Amber OT @ [facility] calling with plan of care. OT will continue to see patient 1 x/week for three weeks for O2 line management with walker ambulation. If agree, no need to call back. Shara Jackson RN [facility]09-03-2024 Telephone encounter Note* Telephone Encounter - Mei Cummins MD - 11/03/2023 1:42 PM EDT Noted and agree Mei Cummins MD [facility]09-03-2024 Miscellaneous Notes* Telephone Encounter - Mei Cummins MD - 11/03/2023 1:42 PM EDT Noted and agree Mei Cummins MD * Telephone Encounter - Marisela Wang LPN - 11/03/2023 11:48 AM EDT FYI: Twila with [facility] PT calls with plan of care: PT will see pt twice a week x 4 weeks for balance, lower extremity strength, endurance, gait training, O2 line management. Marisela Wang LPN documented in this encounterMercy Hospital09-03-2024 Telephone encounter Note * Telephone Encounter - Marisela Wang LPN - 11/03/2023 11:48 AM EDT FYI: Twila with [facility] PT calls with plan of care: PT will see pt twice a week x 4 weeks for balance, lower extremity strength, endurance, gait training, O2 line management. Marisela Wang LPN [facility]08-29-2024 History of Present illness Narrative* Mei Cummins MD - 10/29/2023 2:20 PM EDT Chief Complaint Patient presents with: Hospital F/U HPI Oswaldo Corley is a 83 year old male who presents here today for a Hospital follow up. Pt here today for a Hospital follow up. Pt d/c from [facility] TCU unit on 10/23/23. Previous [...] Screening Discontinued Data reviewed Hospital reports from [facility] ASSESSMENT/PLAN: 1. Chronic obstructive pulmonary [...] current medications. 4. 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 Malu Tavares MA documented in this encounterMercy Hospital08-29-2024 [facility]Sum[facility] Telephone encounter Note* Telephone Encounter - Mei Cummins MD - 10/29/2023 11:57 AM EDT Noted Mei Cummins MD [facility]08-29-2024 Miscellaneous Notes* Telephone Encounter - Mei Cummins MD - 10/29/2023 11:57 AM EDT Noted Mei Cummins MD * Telephone Encounter - Naty Ley RN - 10/28/2023 3:58 PM EDT Amber EMANUEL calling from [facility] to report plan of care for patient and Occupational therapy will visit patient 1 time a week for 2 weeks. Occupational therapy will work with patient on equipment training, home exercise program, safety with O2 line while using of walker. No call back needed unless there are questions Naty Ley RN documented in this encounterMercy Hospital08-29-2024 Telephone encounter Note * Telephone Encounter - Tyesha Lacey RN - 10/29/2023 10:14 AM EDT Call to Twila and verbal order given. Patient has appointment this afternoon so has requested to be seen beginning of next week. Tyesha Lacey RN [facility]08-29-2024 Miscellaneous Notes* Telephone Encounter - Tyesha Lacey RN - 10/29/2023 10:14 AM EDT Call to Twila and verbal order given. Patient has appointment this afternoon so has requested to be seen beginning of next week. Tyesha Lacey RN * Telephone Encounter - Mei Cummins MD - 10/29/2023 10:10 AM EDT OK for a verbal order to see patient today for HH PT joycelyn Cummins MD * Telephone Encounter - Tyesha Lacey RN - 10/29/2023 8:28 AM EDT Twila PT with [facility] HH calls to request a verbal order to see patient today for HH PT eval. Spouse declined visit yesterday and today is outside of their window for current PT orders. Please call Twila back at [phone] with providers response. Tyesha Lacey RN documented in this encounterMercy Hospital08-29-2024 Telephone encounter Note * Telephone Encounter - Mei Cummins MD - 10/29/2023 10:10 AM EDT OK for a verbal order to see patient today for HH PT jackelynal Mei Cummins MD [facility]08-29-2024 Telephone encounter Note* Telephone Encounter - Tyesha Lacey RN - 10/29/2023 8:28 AM EDT Twila PT with [facility] calls to request a verbal order to see patient today for PT joycelyn. Spouse declined visit yesterday and today is outside of their window for current PT orders. Please call Twila back at [phone] with providers response. Tyesha Lacey RN [facility]08-28-2024 Telephone encounter Note* Telephone Encounter - Naty Ley RN - 10/28/2023 3:58 PM EDT Amber EMANUEL calling from [facility] to report plan of care for patient and Occupational therapy will visit patient 1 time a week for 2 weeks. Occupational therapy will work with patient on equipment training, home exercise program, safety with O2 line while using of walker. No call back needed unless there are questions Naty Ley RN [facility]08-28-2024 Telephone encounter Note* Telephone Encounter - Brigette Campos RN - 10/28/2023 8:38 AM EDT Patient called and notified of the below instructions. Refill request sent in another encounter. Brigette Campos RN [facility]08-28-2024 Telephone encounter Note* Telephone Encounter - Brigette Campos RN - 10/28/2023 8:38 AM EDT Images from the original note were not included. Beal Manzano MD You15 hours ago (5:34 PM) Metoprolol 3 times per day should be sufficient. I doubt there is a spot to put him in before Nov Lucho [facility]08-28-2024 Miscellaneous Notes* Telephone Encounter - Brigette [...] a spot to put him in before Nov * Telephone Encounter - Brigette Campos RN - 10/27/2023 2:17 PM EDT Patient's , Serenity, stopped into the office. Patient has had [address] [facility] for anemia related to a GI bleed, acute respiratory failure, sepsis, and CHF. Patient was discharged on 10/25/[address] [facility] TCU. While in the hospital [...] recent ED, Inpatient, and TCU stays at [facility] sent to be scanned into [...] in and schedule herself. documented in this encounterMercy Hospital08-28-2024 Telephone encounter Note * Telephone Encounter - Brigette Campos RN - 10/28/2023 8:35 AM EDT Patient phones requesting refills as follows: Requested Prescriptions Pending Prescriptions Disp Refills metoprolol tartrate, short acting, (LOPRESSOR) 25 mg tablet 270 tablet 0 Sig: Take 1 tablet by mouth three times a day. Please review and advise. Brigette Campos RN [facility]08-28-2024 Miscellaneous Notes* Telephone Encounter - Brigette Campos RN - 10/28/2023 8:35 AM EDT Patient phones requesting refills as follows: Requested Prescriptions Pending Prescriptions Disp Refills metoprolol tartrate, short acting, (LOPRESSOR) 25 mg tablet 270 tablet 0 Sig: Take 1 tablet by mouth three times a day. Please review and advise. Brigette Campos RN documented in this encounterMercy Hospital08-27-2024 Telephone encounter Note * Telephone Encounter - Brigette Campos RN - 10/27/2023 2:17 PM EDT Patient's , Serenity, stopped into the office. Patient has had [address] [facility] for anemia related to a GI bleed, acute respiratory failure, sepsis, and CHF. Patient was discharged on 10/25/[address] [facility] TCU. While in the hospital [...] recent ED, Inpatient, and TCU stays at [facility] sent to be scanned into thechart. Please review and advise. Brigette Campos RN [facility]08-27-2024 Telephone encounter Note* Telephone Encounter - Brigette Campos RN - 10/27/2023 12:23 PM EDT Called and asking the patient's to call back and give us more information so that we can schedule and assist accordingly. What symptoms is the patient having that Home Health feels he needs to be seen sooner? Brigette Campos RN [facility]08-27-2024 Telephone encounter Note* Telephone Encounter - Mirna Florence - 10/27/2023 11:52 AM EDT FYI : called In stating Home care wanted Oswaldo to be seen sooner than December 20. I advised that I did not have anything sooner and I would send a message to the office. was frustrated and hung up and stated she would walk in and schedule herself. [facility]08-27-2024 Telephone encounter Note* Telephone Encounter - Tyesha Lacey RN - 10/27/2023 9:39 AM EDT Call placed to Naty and notified of ok for nitro. Naty verbalizes understanding. Tyesha Lacey RN [facility]08-27-2024 Miscellaneous Notes* Telephone Encounter - Tyesha [...] - 10/27/2023 8:29 AM EDT Naty with [facility] calls to ask if it is ok for patient to continue use of prn nitro with drug interaction to isosorbide since patient has known drug allergy. Please return call to Naty at [phone]. Tyesha Lacey RN Also reviewed lasix orders and prescription sent to [facility]. documented in this encounterMercy Hospital08-27-2024 Telephone encounter Note * Telephone Encounter - Mei Cummins MD - 10/27/2023 9:12 AM EDT OK to use prn nitro Mei Cummins MD [facility]08-27-2024 Telephone encounter Note* Telephone Encounter - Tyesha Lacey RN - 10/27/2023 8:29 AM EDT Naty with [facility] calls to ask if it is ok for patient to continue use of prn nitro with drug interaction to isosorbide since patient has known drug allergy. Please return call to Naty at [phone]. Teysha Lacey RN Also reviewed lasix orders and prescription sent to [facility]. [facility]08-26-2024 Telephone encounter Note* Telephone Encounter - Jocelin Hughes LPN - 10/26/2023 5:57 PM EDT Left detsailed message of such on [employer]rowdet[employer] machine. [facility]08-26-2024 Miscellaneous Notes* Telephone Encounter - Jocelin Hughes LPN - 10/26/2023 5:57 PM EDT Left detsailed message of such on [employer] machine. * Telephone Encounter - Mei Cummins MD - 10/26/2023 5:23 PM EDT OK for Mei Cummins MD * Telephone Encounter - Naty Ley RN - 10/26/2023 1:48 PM EDT Hailee SW from [facility] calls and states that she is going out to see patient on Thursday. Hailee asking if this is ok? Hailee states the way orders were put in this would be a delay in care order. Please review and advise, Naty Ley RN documented in this encounterMercy Hospital08-26-2024 Telephone encounter Note * Telephone Encounter - Mei Cummins MD - 10/26/2023 5:23 PM EDT OK for Weds Mei Cummins MD [facility]08-26-2024 Telephone encounter Note* Telephone Encounter - Jocelin Hughes LPN - 10/26/2023 5:12 PM EDT Left detailed message on [employer]. [facility]08-26-2024 Miscellaneous Notes* Telephone Encounter - Jocelin Hughes LPN - 10/26/2023 5:12 PM EDT Left detailed message on [employer]. * Telephone Encounter - Mei Cummins MD [...] - 10/26/2023 2:37 PM EDT Neelam with [facility] Nursing calls to report pt was discharged from [facility]. Neelam is asking the followin) [...] message. Marisela Wang LPN documented in this encounterMercy Hospital08-26-2024 Telephone encounter Note * Telephone Encounter - Mei Cummins MD - 10/26/2023 5:07 PM EDT OK for lasix as ordered Mei Cummins MD [facility]08-26-2024 Telephone encounter Note* Telephone Encounter - [...] tonight with an update. Vickie Carrillo MA [facility]08-26-2024 Telephone encounter Note* Telephone Encounter - Mei Cummins MD - 10/26/2023 3:18 PM EDT OK to resume lorazepam Erythromycin ointment ordered Agree with nursing plan of care Mei Cummins MD [facility]08-26-2024 Telephone encounter Note* Telephone Encounter - Justus Henry RN - 10/26/2023 2:57 PM EDT Naty- [facility]- transferred to this nurse looking for state attorney, Dr. Manzano. Naty reports patient was discharged from [facility] yesterday, and his discharge medication list, includes lasix 20 mg prn. Asking if patient should be taking this, if yes, needs Rx sent to [facility]. Unable to see [facility] notes at this time, in patient's chart. Spoke with cardiology nurse, who reports Dr. Manzano does not have patient on lasix. Notified Naty of this and advised her to check [facility] records to find out who prescribed lasix for patient. Naty agreeable. [facility]08-26-2024 Miscellaneous Notes* Telephone Encounter - Justus Henry RN - 10/26/2023 2:57 PM EDT Naty- [facility]- transferred to this nurse looking for state attorney, Dr. Manzano. Naty reports patient was discharged from [facility] yesterday, and his discharge medication list, includes lasix 20 mg prn. Asking if patient should be taking this, if yes, needs Rx sent to [facility]. Unable to see [facility] notes at this time, in patient's chart. Spoke with cardiology nurse, who reports Dr. Manzano does not have patient on lasix. Notified Naty of this and advised her to check [facility] records to find out who prescribed lasix for patient. Naty agreeable. documented in this encounterMercy Hospital08-26-2024 Telephone encounter Note * Telephone Encounter - Marisela Wang LPN - 10/26/2023 2:37 PM EDT Neelam with [facility] Nursing calls to report pt was discharged from [facility]. Neelam is asking the followin) [...] Neelam with provider's message. Marisela Wang LPN [facility]08-26-2024 Telephone encounter Note* Telephone Encounter - Naty Ley RN - 10/26/2023 1:48 PM EDT Hailee SW from [facility] HH calls and states that she is going out to see patient on Thursday. Hailee asking if this is ok? Hailee states the way orders were put in this would be a delay in care order. Please review and advise, Naty Ley RN [facility]08-23-2024 Telephone encounter Note* Telephone Encounter - Zen Lopez LPN - 10/23/2023 4:33 PM EDT Phoned left detailed message on [employer] with notes below from Dr Cummins. [facility]08-23-[facility]24 Miscellaneous Notes* Telephone Encounter - Zen Lopez LPN - 10/23/2023 4:33 PM EDT Phoned left detailed message on [employer] with notes below from Dr Cummins. * Telephone Encounter - Mei Cummins MD - 10/23/2023 4:14 PM EDT OK for order for Home Health Nursing, PT, OT and Social Work as requested Mei Cummins MD * Telephone Encounter - Coco Arriaga RN - 10/23/2023 3:09 PM EDT Twila with [facility] calling and states patient is to be discharged from [facility] tomorrow, 10/24/23. Requesting order for Home Health Nursing, PT, OT and Social Work for patient. Please call Twila with approval of orders at [phone]. Thank you. documented in this encounterMercy Hospital08-23-2024 Telephone encounter Note * Telephone Encounter - Mei Cummins MD - 10/23/2023 4:14 PM EDT OK for order for Home Health Nursing, PT, OT and Social Work as requested Mei Cummins MD [facility]-2024 Telephone encounter Note* Telephone Encounter - Coco Arriaga RN - 10/23/2023 3:09 PM EDT Twila with [facility] calling and states patient is to be discharged from [facility] tomorrow, 10/24/23. Requesting order for Home Health Nursing, PT, OT and Social Work for patient. Please call Twila with approval of orders at [phone]. Thank you. [facility]08-23-2024 [facility]08-17-2024 [facility]08-17-2024 [facility]08-06-2024 Telephone encounter Note* Telephone Encounter - Mei Cummins MD - 10/06/2023 3:13 PM EDT He may contact Pulm if he feels he needs to. Mei Cummins MD [place] [address]-06-2024 Miscellaneous Notes* Telephone Encounter - Mei Cummins [...] fine. Naty Ley RN documented in this encounterMercy Hospital08-05-2024 [facility]08-05-2024 Telephone encounter Note* Telephone Encounter - Aminata Boston - 10/05/2023 4:16 PM EDT Called patient and schedule and directed [facility]-2024 Miscellaneous Notes* Telephone Encounter - Aminata [...] because he was in the ER at [facility] and was just dischargedyesterday. He tested positive for COVID and she is also positive. All of the hospital information should have been forwarded to Dr. Cummins. Serenity also requested that I let Dr. Meraz's office know Oswaldo's status. Faustina Rosen RN October 01, 2023 11:49 AM documented in this encounterMercy Hospital08-05-2024 Telephone encounter Note * Telephone Encounter - Vickie Carrillo MA - 10/05/2023 2:33 PM EDT Should pt contact Pulmonary as well to make them aware since he's having such a difficult time? Vickie Carrillo MA [facility]08-05-2024 Telephone encounter Note* Telephone Encounter - Mei Cummins MD - 10/05/2023 2:18 PM EDT Noted; he may monitor symptoms at home for now; let me know if things change Mei Cummins MD [facility]08-05-2024 Telephone encounter Note* Telephone Encounter - [...] resting patient is fine. Naty Ley RN [facility]08-01-2024 Telephone encounter Note* Telephone Encounter - Felicity Rojas MA - 10/01/2023 12:06 PM EDT Not a problem. Lab orders do not until 05/31/2024. Felicity Rojas MA [facility]08-01-2024 Miscellaneous Notes* Telephone Encounter - Felicity [...] 01, 2023 11:41 AM documented in this encounterMercy Hospital08-01-2024 NoteHNO ID: [id number] Author: MEI CUMMINS MD Service: ? Author Type: Physician Type: Progress Notes Filed: 10/01/2023 11:53 Note Text: Noted Mei Cummins [facility]08-01-[facility] History of Present illness Narrative* Mei Cummins MD - 10/01/2023 11:53 AM EDT Noted Mei Cummins MD * Vickie Carrillo MA - 10/01/2023 11:13 AM EDT Images from the original note were not included. TRANSITION CARE MANAGEMENT (TCM) INITIAL CONTACT Glassware Verifier Outreach Provider Action/FYI: Spoke with pt and [...] data to display SUMMARY: -Pt discharged from [facility] on 09/30/23. -Admitted for: Date [...] home? Yes Medical records from recent hospitalization: [facility]. Vickie Carrillo MA documented in this encounterMercy Hospital08-01-2024 Telephone encounter Note * Telephone Encounter - Faustina Rosen RN - 10/01/2023 11:46 AM EDT Serenity called regarding Oswaldo, verified name and date of . Serenity wanted to let Yuliet in Dr. Calvillo's office (pulmonary) know that the reason Serenity did not call on September 27, with an update on Oswaldo was because he was in the ER at [facility] and was just dischargedyesterday. He tested positive for COVID and she is also positive. All of the hospital information should have been forwarded to Dr. Cummins. Serenity also requested that I let Dr. Meraz's office know Oswaldo's status. Faustina Rosen RN October 01, 2023 11:49 AM [facility]08-01-2024 Telephone encounter Note* Telephone Encounter - [...] Calvillo LPN October 01, 2023 11:41 AM [facility]08-01-2024 [facility]Sum[facility] Telephone encounter Note* Telephone Encounter - Laura Cabral RN - 09/25/2023 3:38 PM EDT Christina notified of the below and states understanding. Emphasized the need for ER or Urgent care if worsens. [facility]07-26-2024 Miscellaneous Notes* Telephone Encounter - Laura [...] number rather than cell. documented in this encounterMercy Hospital07-26-2024 Telephone encounter Note * Telephone Encounter - Salazar Meraz DO - 09/25/2023 3:24 PM EDT I sent Rx for doxycycline. If his symptoms worsen however he goes to the ER or urgent care. Salazar Meraz DO [facility]07-26-2024 Telephone encounter Note* Telephone Encounter - [...] Please call house number rather than cell. [facility]07-26-2024 Telephone encounter Note* Telephone Encounter - Tyrell LamarARIADNA - 09/25/2023 2:59 PM EDT Spouse presented [...] agreeable to this plan. Tyrell Lamar LPN [facility]07-26-2024 Miscellaneous Notes* Telephone Encounter - Tyrell [...] plan. Tyrell Lamar LPN documented in this encounterMercy Hospital07-23-2024 Telephone encounter Note * Telephone Encounter - Brigette Campos RN - 09/22/2023 8:40 AM EDT Patient requesting refills as follows: Requested Prescriptions Pending Prescriptions Disp Refills atorvastatin (LIPITOR) 40 mg tablet 90 tablet 3 Sig: Take 1 tablet by mouth once daily. Please review and advise. Brigette Campos RN [facility]07-23-2024 Miscellaneous Notes* Telephone Encounter - Brigette Campos RN - 09/22/2023 8:40 AM EDT Patient requesting refills as follows: Requested Prescriptions Pending Prescriptions Disp Refills atorvastatin (LIPITOR) 40 mg tablet 90 tablet 3 Sig: Take 1 tablet by mouth once daily. Please review and advise. Brigette Campos RN documented in this encounterMercy Hospital07-22-2024 History of Present illness Narrative* Mei [...] Never done HbA1C due on 12/24/2022 Covid-19 Vaccine( - 2022- season) due on 04/21/2023 Influenza Vaccine(1) due [...] regular exercise 6. 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 Vickie Carrillo MA documented in this encounterMercy Hospital07-21-2024 Telephone encounter Note * Telephone Encounter - Rosalie Mitchell RN - 09/20/2023 11:35 AM EDT Patient calling regarding medication Trelegy not helping as well as Advair & Spireva and wanting to switch back to these meds. Conferenced to [facility] strap machine operator automatic, Asmita, to speak with provider engine repairer production for Rosalie Martinez. GO TO THE EMERGENCY ROOM OR CALL 911 IF: * You develop any new symptoms * Your condition worsens * You are concerned or anxious about your condition for any other reason. If you have any questions, you can call Nurse information technology director back. [facility]07-21-2024 Miscellaneous Notes* Telephone Encounter - Rosalie Mitchell RN - 09/20/2023 11:35 AM EDT Patient calling regarding medication Trelegy not helping as well as Advair & Spireva and wanting to switch back to these meds. Conferenced to [facility] strap machine operator automatic, Asmita, to speak with provider engine repairer production for Rosalie Martinez. GO TO THE EMERGENCY ROOM OR CALL 911 IF: * You develop any new symptoms * Your condition worsens * You are concerned or anxious about your condition for any other reason. If you have any questions, you can call Nurse information technology director back. documented in this encounterMercy Hospital07-17-2024 History of Present illness Narrative* Kailash Cordova APRN.MEDICAL DEVICE ASSEMBLER - 09/16/2023 2:00 PM EDT Images from [...] thick-walled lateral left lower lobe loculated pneumothorax Rn Internal Medicine: PSCB Transcribe Date/Time: Aug 06 2023 8:33A Dictated by : MIRNA MILTON MD This examination was interpreted and the report reviewed and electronically signed by: MIRNA MILTON MD on Aug 06 2023 8:53AM EST Results-Findings * * *Final Report* * * DATE OF EXAM: Jul 30 2023 11:56AM [facility] 0539 - CT CHEST W IVCON [...] - close follow-up with CT scheduled in October 04. Bronchiectasis without complication (HCC) - ICD9: 494.0, [...] edited and updated as necessary. Kailash Cordova APRN.MEDICAL DEVICE ASSEMBLER Associated attestation - Rosalie Martinez PA-C - 09/17/2023 10:50 AM EDT I have personally performed a face to face assessment of the patient and have reviewed the KATHLEEN note. My [place] findings include: Exam is as documented. Assessment/Plan discussed and reflected in note. Other additions or changes: As edited Signature: Rosalie Martinez Date: 09/17/2023 Time: 10:49 AM documented in this encounterMercy Hospital06-24-2024 Telephone encounter Note * Telephone Encounter - Mei Cummins MD - 08/24/2023 12:07 PM EDT OK to refill as ordered Mei Cummins MD [facility] Miscellaneous Notes* Telephone Encounter - Mei Cummins MD - 08/24/2023 12:07 PM EDT OK to refill as ordered Mei Cummins MD * Telephone Encounter - Erica Hunt LPN - 08/24/2023 7:29 AM EDT JOSE M-06/22/23 Labs-06/15/23 NOV-09/21/23 Erica Hunt LPN documented in this encounterMercy Hospital06-24-2024 Telephone encounter Note * Telephone Encounter - Naty Villarreal - 08/24/2023 11:36 AM EDT Spoke with patient's spouse and scheduled as directed. Naty Villarreal [facility] Miscellaneous Notes* Telephone Encounter - Naty Villarreal - 08/24/2023 11:36 AM EDT Spoke with patient's spouse and scheduled as directed. Naty Villarreal * Telephone Encounter - Radha Pearson LPN - 08/24/2023 9:26 AM EDT PSS- please contact patient's to schedule CT chest in 2 months. She is expecting the call. Dr. Meraz- please file order. Radha Pearson LPN documented in this encounterMercy Hospital06-24-2024 Telephone encounter Note * Telephone Encounter - Radha Pearson LPN - 08/24/2023 9:26 AM EDT PSS- please contact patient's to schedule CT chest in 2 months. She is expecting the call. Dr. Meraz- please file order. Radha Pearson LPN [facility] Telephone encounter Note* Telephone Encounter - Erica Hunt LPN - 08/24/2023 7:29 AM EDT JOSE M-06/22/23 Labs-06/15/23 NOV-09/21/23 Erica Hunt LPN [facility] History of Present illness Narrative* Antonio Vigileen Bruno, - 08/18/2023 9:50 AM EDT Images from the original note were not included. Heart , Vascular [facility] Thoracic [place] DEPARTMENT OF VASCULAR SURGERY OUTPATIENT VISIT DATE [...] 2023 TIME: 9:52 AM documented in this encounterMercy Hospital06-10-2024 Telephone encounter Note * Telephone Encounter - Radha Pearson LPN - 08/10/2023 9:23 AM EDT Patient's notified. Radha Pearson LPN [facility] Miscellaneous Notes* Telephone Encounter - Radha [...] back. Salazar Meraz DO documented in this encounterMercy Hospital06-10-2024 Telephone encounter Note * Telephone Encounter [...] once I hear back. Salazar Meraz DO [facility] History of Present illness Narrative* Reef [...] PATIENT PRESENTS WITH AN IMPLANTABLE OR ATTACHED OPERATORS TEACHER: No ALLERGIES: Reviewed and unchanged CONTRAST ALLERGY: [...] DEPARTMENT: CT; Exam(s) Completed: Chest SIGNATURE: RT Joey(Mikhail) PATIENT NAME: Oswaldo Corley DATE: July 30, 2023 TIME: 12:36 PM documented in this encounterMercy Hospital05-28-2024 Telephone encounter Note * Telephone Encounter - Jailyn Acosta PSS - 07/28/2023 3:[address] order for stat creatinine order for pt , pt appt on 07/30/[address] [facility] Miscellaneous Notes* Telephone Encounter - Jailyn Acosta PSS - 07/28/2023 3:[address] order for stat creatinine order for pt , pt appt on 07/30/[address] documented in this encounterMercy Hospital05-20-2024 Telephone encounter Note * Telephone Encounter - Tyrell Lamar LPN - 2023 8:51 AM EDT Patient phones requesting refills as follows: JOSE M: 05/12/23 Requested Prescriptions Pending Prescriptions Disp Refills predniSONE (DELTASONE) 10 mg tablet 30 tablet 5 Sig: Take 1 tablet by mouth once daily. Please review and advise. Tyrell Lamar LPN [facility] Miscellaneous Notes* Telephone Encounter - Tyrell Lamar LPN - 2023 8:51 AM EDT Patient phones requesting refills as follows: JOSE M: 05/12/23 Requested Prescriptions Pending Prescriptions Disp Refills predniSONE (DELTASONE) 10 mg tablet 30 tablet 5 Sig: Take 1 tablet by mouth once daily. Please review and advise. Tyrell Lamar LPN documented in this encounterMercy Hospital04-22-2024 History of Present illness Narrative* Mei [...] due to the COPD. Follows with [facility]. No bowel, gi, or urinary issues. Taking [...] with Cardio 5. 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 Malu Tavares MA documented in this encounterDebra Ville [address]-19-2024 Miscellaneous Notes* Telephone Encounter - Vianey Johnson - 06/19/2023 1:24 PM EDT Called patient and scheduled CT. Vianey Araujo * Telephone Encounter - Naty Villarreal - 06/19/2023 9:20 AM EDT Please pend & sign CT Chest for scheduling purposes. Naty Villarreal * Telephone Encounter - Donna Bell LPN - 06/19/2023 8:54 AM EDT Pt notified and voices understanding. Will send message to [employer] for his reference. Please reach out to [...] contrast. Salazar Meraz DO documented in this encounterMercy Hospital04-12-2024 Miscellaneous Notes* Telephone Encounter - Radha [...] taking eliquis. Please advise. documented in this encounterMercy Hospital04-10-2024 Miscellaneous Notes* Telephone Encounter - Radha [...] Meraz- have you spoken with Dr. Cortez? [phone]. Patient's stopped at my desk to ask [...] Pt notified. Aware will be scheduled at [place]. Please assist with scheduling. Donna Bell LPN * Telephone Encounter - Salazar Meraz DO - 05/26/2023 2:15 PM EDT Can let him know the CT scan showed stable findings when compared to previous couple months ago. That is good but would still like to pursue biopsy. Order filed. Can be done at [place]. Okay to hold apixaban 2 full days prior to the biopsy. Salazar Meraz DO documented in this encounterMercy Hospital04-08-2024 Instructions* Patient Instructions* Bela Manzano MD - 06/08/2023 11:39 AM EDT We are adding Ezetimibi (Zetia) 10 mg once per day Repeat fasting blood work in September documented in this encounterMercy Hospital04-08-2024 History of Present illness Narrative* Bela Manzano MD - 06/08/2023 11:20 AM EDT Images from the original note were not included. [facility] SECTION OF REGIONAL CARDIOLOGY Cardiology ([facility]) [address] [id number] OUTPATIENT VISIT DATE 06/08/2023 PRIMARY CARE PHYSICIAN: Mei Cummins [address] [place] [address] HISTORY OF PRESENT ILLNESS: Mr. Corley is [...] for routine follow-up. He was admitted to [facility] in March and diagnosed with DVT [...] OM2. The OM2 fills competitively from the [place] LCX and the SVG. RCA: Dominant vessel [...] Gated Stress IR:3D LVEF % [address] [facility] 03/25/2023: Normal LV size. Estimated [...] left maincoronary artery. Most recent cardiac catheterization 2016 as [...] AND RECOMMENDATIONS:\ 1. Coronary artery 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 [place] heart without angina pectoris- ICD9: 414.01, ICD10: [...] I73.9 Bela Manzano MD documented in this encounterMercy Hospital04-03-2024 Miscellaneous Notes* Telephone Encounter - Jamshid Brown APRN.CNP - 06/03/2023 11:45 AM EDT The following approved medication requests have been transmitted electronically. Requested Prescriptions Pending Prescriptions Disp Refills SPIRIVA RESPIMAT 2.5 mcg/actuation inhaler 1 Each 5 Sig: Inhale 2 Puffs as instructed once daily. Jamshid Efraín, OIL DELIVERER.MEDICAL DEVICE ASSEMBLER * Telephone Encounter - Erica Hunt LPN - 06/03/2023 10:55 AM EDT JOSE M-03/23/23 Labs-05/21/23 NOV-06/22/23 Erica Hunt LPN documented in this encounterMercy Hospital03-25-2024 Miscellaneous Notes* Telephone Encounter - Mei Cummins MD - 05/25/2023 1:30 PM EDT OK to refill as ordered eMi Cummins MD * Telephone Encounter - Erica Hunt LPN - 05/25/2023 10:23 AM EDT JOSE M-03/23/23 Labs-05/21/23 NOV-03/23/23 Erica Hunt LPN documented in this encounterMercy Hospital03-21-2024 History of Present illness Narrative* Reef Summer Clark RT(R) - 05/21/2023 1:00 PM EDT Radiology [...] PATIENT PRESENTS WITH AN IMPLANTABLE OR ATTACHED OPERATORS TEACHER: No ALLERGIES: Reviewed and unchanged CONTRAST ALLERGY: [...] PATIENT PRESENTS WITH AN IMPLANTABLE OR ATTACHED OPERATORS TEACHER: No ALLERGIES: Reviewed and unchanged CONTRAST ALLERGY: [...] 2023 TIME: 1:50 PM documented in this encounterMercy Hospital03-19-2024 Miscellaneous Notes* Telephone Encounter - Alethea Dumont - 05/19/2023 9:07 AM EDT Scheduled with spouse * Telephone Encounter - Naty Villarreal - 05/18/2023 4:31 PM EDT Check out comments: Creatinine(S)/CT chest when able. Please scheduled in the afternoon with the patient/patient's once orders are signed. Naty Villarreal documented in this encounterMercy Hospital03-18-2024 History of Present illness Narrative* Salazar [...] patient developed apneumothorax. He was transferred to [facility]. PET scan 02/17/2020 done at [facility] demonstrated a 1.2 cm spiculated nodule in [...] He had improvement in symptoms. Admitted to [facility] on 03/25/2023 for hemoptysis. He underwent [...] anticoagulation. -He prefers to have biopsy at [place]. Plan: -Continue apixaban 5 mg BID. -CT chest with contrast. -Once resulted will order imaging guided biopsy at [place]. -OV about 1-2 weeks after biopsy. (C61) [...] which included preparing to see the patient, [id number] patient care, completing clinical documentation, obtaining and/or reviewing separately obtained history, performing a medically appropriate examination, counseling and educating the pat ient/family/caregiver, ordering medications, tests, or procedures, communicating with other HCPs (not separately reported), and communicating results to the patient/family/caregiver. Salazar Meraz DO documented in this encounterMercy Hospital03-12-2024 History of Present illness Narrative* Rosalie Martinez PA-C - 05/12/2023 2:00 PM EDT Images from the original note were not included. Patient: Oswaldo Corley PCP: Mei Cummins MD CC: follow up HPI: Oswaldo Corley 82 year old male [...] for pulmonary embolism. Patient was admitted to [facility] 03/25 - 03/[address] PE showed LLL PE and he was started on Eliquis. Recent PET scan concerning for local recurrence and also appeared to have pleural-based disease medial portion of the left lung in addition to several new nodules in left lung. Per televisit 04/03/[address] Herrmann, CT surgeon at [facility], I have spoken with Dr. Meraz ([facility] oncologist), who agrees that operative treatment is [...] above and updated in EMR. IMMUNIZATIONS Prevnar - 2016 Pneumovax - 2015 Influenza - [...] capacity is moderately reduced. CTA chest, 03/25/2023 [facility] PET, 03/03/2023 [facility] ASSESSMENT/PLAN: 1. Stage 3 severe COPD [...] necessary. Rosalie Martinez PA-C documented in this encounterMercy Hospital02-22-2024 Miscellaneous Notes* Telephone Encounter - Radha Pearson LPN - 04/23/2023 7:55 AM EST Please see 04/03/[address] Herrmann for plan. Radha Pearson LPN documented in this encounterMercy Hospital02-20-2024 Miscellaneous Notes* Telephone Encounter - Radha Pearson LPN - 04/21/2023 8:25 AM EST Please send pended Rx. Radha Pearson LPN documented in this encounterMercy Hospital02-14-2024 Miscellaneous Notes* Telephone Encounter - Rosalinda [...] . Rosalinda Hernandez RN documented in this encounterMercy Hospital02-13-2024 History of Present illness Narrative* Tip Mac APRN.MEDICAL DEVICE ASSEMBLER - 04/14/2023 12:00 PM EST Images from [...] years. Quit 2002. Patient was admitted to [facility] from 03/25 - 03/27/2023 for treatment of PE. Discharge recommendations from Dr. Martin Zaragoza were as follows: Patient is an 82-year-old male who presented to [facility] ED on03/25/2023 with hemoptysis, shortness of [...] for Plavix and Mucinex DM. Follow-up with [facility] drum barker operator Dr. Ji Calvillo. 2. History of lung [...] guided biopsy done at that time at [facility] and developed pneumothorax postbiopsy requiring transfer to [facility] for further management. PET scan at [facility] was concerning for malignancy and patient had a left thoracoscopy with conversion tomini thoracotomy with wedge resection of the left lower lobe lung mass in 01/2020. 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 Patient completed radiation therapy to the left lower lung in 04/2020, has had no further therapy since that time. Has outpatient follow-up scheduled with Dr. Lizyz otero; no oncology needs while inpatient, recommend [...] told to stop them after d/c from [facility]) He does not have any other bleeding currently He is using his inhalers as ordered Takes prednisone 10 mg daily Takes albuterol ~1 time a day with benefit when short of breath His oncologist is in discussion with thoracic surgery at [facility] regarding need for biopsy of [...] 03/12/2023 Neut% 93.4 03/12/2023 Lymph% 3.0 03/12/2023 Weld% 2.7 03/12/2023 Eosin% 0.1 03/12/2023 Baso% 0.2 03/12/2023 Abs Neut (ANC) 12.46 03/12/2023 Abs Weld 0.36 03/12/2023 Abs Eosin <0.03 03/12/2023 Abs Baso <0.03 03/12/[address]/CTA Chest/Lungs CT CHEST WO IVCON Exam End: 02/11/2023 3:53 PM (Final result) Narrative: * * *Final Report* * * DATE OF EXAM: Feb 11 2023 3:53PM [facility] 0541 - CT CHEST WO IVCON [...] abdomen demonstrates a few tiny gallbladder stones. Plate Straightener (topogram) images: No additional findings. Impression: IMPRESSION: Multiple stable bilateral lung nodules as described above. Interval resolution of previously mentioned new nodule in the right lower lobe. Emphysema. Interval worsening of opacity in the left lower lobe with central lucency/bronchiolectasis. 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 Gallbladder stones. Rn Internal Medicine: ARTEM Transcribe Date/Time: Feb 16 2023 11:42A [...] 10/13/2022 FVCPRE L 3.28 FVCPOST L 3.34 IML4ECE L 1.23 OLP8YROT L 1.23 OMV4UKUQJG % 37 UUC4LBAHNJO % 37 [id number] L/S 0.45 [id number] L/S 0.41 PEFPRE L/S 3.03 PEFPOST L/S [...] Stage 3 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 ([facility]) (J96.11) Chronic hypoxemic respiratory failure (HCC) (I26.99) Other pulmonary embolism without acute cor pulmonale, unspecified chronicity (HCC) (I82.433) Deep vein thrombosis (DVT) of popliteal vein of both lower extremities, unspecified chronicity (HCC) (R04.2) Hemoptysis (Z85.118) History of cancer of lower lobe bronchus or lung IMPRESSION/PLAN: Patient presents today for follow-up of recent hospitalization. He was in [facility] 03/25 through 03/27 [...] lung. He follows closely with oncology at [facility] and thoracic surgeon at [facility] who are planning biopsy after 6 weeks of anticoagulation. Patient will continue current therapy which includes advair, spiriva, prednisone 10 mg, albuterol PRN, oxygen at 3L continuously. 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 Will defer this to heme/onc. I will reach out to Dr. Calvillo, then possibly state attorney and vascular surgeon to discuss risk vs benefits of continuing plavix along with eliquis and inform patient. He has existing follow up with pulm 05/11. Electronically signed by: Tip Mac APRN.[facility] Pulmonary Medicine [facility] I have collected the history from [...] which included preparing to see the patient, lnkc-va-kwfm patient care, completing clinical documentation, obtaining and/or reviewing separately obtained history, performing a medically appropriate examination, counseling and educating the pat ient/family/caregiver, ordering medications, tests, or procedures, independently interpreting results (not separately reported), and communicating results to the patient/family/caregiver documented in this encounterMercy Hospital02-07-2024 History of Present illness Narrative* Salazar [...] patient developed apneumothorax. He was transferred to [facility]. PET scan 02/17/2020 done at [facility] demonstrated a 1.2 cm spiculated nodule in [...] last saw him, he was admitted to [facility] on 03/25/2023 for hemoptysis. He underwent [...] which included preparing to see the patient, nxyb-jo-uqsd patient care, completing clinical documentation, obtaining and/or reviewing separately obtained history, performing a medically appropriate examination, counseling and educating the pat ient/family/caregiver, communicating with other HCPs (not separately reported), and communicating results to the patient/family/caregiver. Salazar Meraz DO documented in this encounterMercy Hospital02-02-2024 History of Present illness Narrative* Oliverio Herrmann MD - 04/03/2023 1:00 PM EST Images from the original note were not included. [facility] CARDIOVASCULAR & THORACIC SURGERY [address] [facility] [address] Dept: [phone] Dept Loc: [phone] Patient was identified and seen today via [...] stated that they are currently in the [facility]. If the patient is a minor, permission has been obtained by the parent or guardian for the patient to receive medical care at this visit. Visit type: Established Reason for Visit: Follow-up telephone conversation Assessment and plan I have spoken with Dr. Meraz ([place] oncologist), who agrees that operative treatment is [...] this case with the patient's oncologist in [place], Dr. Meraz, who states that nonsurgical treatment [...] for the biopsy to be performed at [facility] at Dr. Meraz's request. Patient is [...] This note may have been dictated using Ass[employer] Medical Practice Edition 2.6 and/or Codefied Voice Recognition Feature. The document was proofread, however unrecognized voice recognition lard renderer errors may be present. documented in this [facility]01-30-[facility] History of Present illness Narrative* Oliverio Herrmann MD - 03/31/2023 11:30 AM EST Images from the original note were not included. [facility] CARDIOVASCULAR & THORACIC SURGERY [address] [facility] [address] Dept: [phone] Dept Loc: [phone] Patient was identified and seen today via [...] stated that they are currently in the [facility]. If the patient is a minor, [...] this case with the patient's oncologist in [place], Dr. Meraz, who states that nonsurgical treatment [...] for the biopsy to be performed at [facility] at Dr. Meraz's request. History of [...] This note may have been dictated using Moda[employer] Practice Edition 2.6 and/or Codefied Voice Recognition Feature. The document was proofread, however unrecognized voice recognition lard renderer errors may be present. documented in this [facility]01-26-2024 Consult note Author Levi Heredia [facility] March 27, 2023 11:39am Note Date/Time March 27, 2023 1 1:39am [facility] Medical Records Department [address] [place] [address] Counseling Note - Pharmacy 03/27/23 1138 MR#: [id number] Acct: [id number] Name: OSWALDO CORLEY Rep #:[id number] : 1940 82 From: Levi Heredia PCP: Dr. Mei Cummins MD Status:AD M IN Y Location: [place] [address] Pharmacy [facility] Pharmacy Service has performed discharge medication [...] signed by Levi cesar> Date _ Levi Yusufigner Signature (if applicable): Date CC: ~ Signed [facility] Work Phone: 1(815) 357-309701-26-2024 Discharge summary Author Martin Zaragoza [facility] March 27, 2023 10:57am Note Date/Time March 27, 2023 1 0:27am [facility] Medical Records Department [address] [place] [address] Instructions for Home/Discharge Instructions 03/27/23 1027 MR#: [id number] Acct: [id number] Name: BARNEYOSWALDO EDMONDS Bruno Rep #:[id number] : 1940 82 From: Martin Boykin PCP: Dr. Mei Cummins MD Status:AD M [...] has lung cancer. Discharge Orders/Prescriptions Prescriptions: [place] DVT-PE Treat 30D Start 5 mg (74 [...] DO; Dr. Mei Cummins MD ~ Signed [facility] Work Phone: 1(267) 218-100201-26-2024 Discharge summary Author Martin Zaragoza [facility] March 27, 2023 12:35pm Note Date/Time March 27, 2023 1 0:57am [facility] Medical Records Department [address] [place] [address] Discharge Summary 03/27/23 1057 MR#: [id number] Acct: [id number] Name: OSWALDO CORLEY Rep #:[id number] : 1940 82 From: Martin Boykin PCP: Dr. Mei Cummins MD Status:AD M IN [facility] Date of Admission: 03/26/23 Date of [...] is an 82-year-old male who presented to [facility] ED on03/25/2023 with hemoptysis, shortness of [...] for Plavix and Mucinex DM. Follow-up with [facility] drum barker operator Dr. Ji Calvillo. 2. History of lung [...] CT-guided biopsy done at that time at [facility] and developed pneumothorax postbiopsy requiring transfer to [facility] for further management. PET scan at [facility] was concerning for malignancy and [...] MD at 14:30 EST , ADDENDUM: 03/25/23 5751 IMPRESSION: 1. Pulmonary embolism in second branches [...] Physician: Jacob Suazo Performed By: Andrés Hernandez RVAyala Clinical Impression(s) from Imaging Studies Chest CTA [...] life as he has lung cancer. Follow-up drum barker operator Dr. Ji Calvillo [facility] within 2 weeks. [...] Self Care Charges/Coding Visit Charges Inpatient E&M: 55363 Disch Hosp >30min 03/27/23 1235 <Electronically signed by Martin Zaragoza MD> Cosigner Signature (if applicable): CC: Dr. Felicity Wilkinson MD; Dr. Mei Cummins MD; Dr. Salazar Meraz DO; Dr.Prakash Nik MD~ Signed [facility] Work Phone: 1(894) 950-594801-25-2024 Progress note Author Martin Zaragoza [facility] March 26, 2023 12:47pm Note Date/Time March 26, 2023 7 :18am [facility] Medical Records Department [address] [place] [address] Progress Note - Hospitalist 03/26/23712 MR#: [id number] Acct: [id number] Name: OSWALDO CORLEY Rep #:[id number] : 1940 82 From: Martin Boykin PCP: Dr. Mei Cummins MD Status:AD M IN Location: [place] [address] Reason for Visit Reason for Visit: Diagnoses [...] 92.4 H, Lymph % (Auto) 3.7 L, Weld % (Auto) 3.2, Eos % (Auto) 0.1, [...] is an 82-year-old male who presented to [facility] ED on03/25/2023 with hemoptysis, shortness of [...] CT-guided biopsy done at that time at [facility] and developed pneumothorax postbiopsy requiring transfer to [facility] for further management. PET scan at [facility] was concerning for malignancy and [...] previous exam. Charges/Coding Visit Charges Inpatient E&M: 31964 Subs Hosp L2 03/26/23 1246 <Electronically signed by Martin Zaragoza MD> Cosigner Signature (if applicable): CC: ~ Signed [facility] Work Phone: 1(638) 387-378201-25-2024 Progress note Author Sushila Rivers [facility] March 26, 2023 4:11am Note Date/Time March 26, 2023 4 :11am [facility] Medical Records Department [address] [place] [address] Progress Note - Hospitalist 03/26/23409 MR#: [id number] Acct: [id number] Name: OSWALDO CORLEY Rep #:[id number] : 1940 82 From: Sushila Rivers MD PCP: Dr. Mei Cummins MD Status:AD M FABIAN Location: [place] [address] Hospitalist Note Patient with ongoing severe bouts of coughing, asking for regimen. Will d/c mucinex and add guaf/codeine regimen to see if improved cough control. 03/26/23410 <Electronically signed by Sushila Rivers MD> Cosigner Signature (if applicable): CC: ~ Signed [facility] Work Phone: 1(806) 547-105901-25-2024 History and physical note Author Jacob Suazo [facility] Hospital March 25, 2023 10:13pm Note Date/Time March 25, 2023 3 :13pm [facility] Medical Records Department [address] [place] [address] H&P Exam - Hospitalist 03/25/23 1511 MR#: [id number] Acct: [id number] Name: OSWALDO CORLEY Rep #:[id number] : 1940 82 From: Jacob womack DO PCP: Dr. Mei Cummins MD Status:AD M FABIAN Location: [place] [id number] HPI - General General Date of Admission: 03/25/23 Date of Service: 03/25/23 Chief Complaint: Hemoptysis HPI Narrative OSWALDO CORLEY, is a 82 M who presented to [facility] ED on 03/25/2023 with sarika hemoptysis. [...] had CT-guided biopsy done atthat time at [facility] and developed pneumothorax postbiopsy requiring transfer to [facility] for further management. PET scan at [facility] was concerning for malignancy and patient had a left thoracoscopy with conversion to mini thoracotomy with wedge resection of the left lower lobe lung mass in 01/2020. Pathology from theresection showed moderately differentiated squamous cell carcinoma. Patient completed radiation therapy to the left lower lung in 04/2020, has had no furthertherapy since that time. [facility] Medical History (Updated 03/25/23 @ 17:05 by [...] Reaction Status Date / Time isosorbide [From dur] Allergy Other-patient Verified 03/25/23 12:50 blacks out [...] 92.4 H, Lymph % (Auto) 3.7 L, Weld % (Auto) 3.2, Eos % (Auto) 0.1, [...] is an 82-year-old male who presented to [facility] ED on03/25/2023 with hemoptysis. 1. Acute [...] 55 minutes. Charges/Coding Visit Charges Inpatient E&M: 70799 Init Hosp L2 03/25/23 2213 <Electronically signed by Jacob Suazo DO> Cosigner Signature (if applicable): CC: Dr. Jacob Suazo DO; Dr. Mei Cummins MD~ Signed [facility] Work Phone: 1(843) 317-909901-24-2024 Discharge summary Author Randy Londono [facility] March 25, 2023 3:37pm Note Date/Time March 25, 2023 1 :14pm [facility] Medical Records Department [address] [place] [address] Emergency Department Summary 03/25/23 MR#: [id number] Acct: [id number] Name: OSWALDO CORLEY Rep #:[id number] : 1940 82 From: Randy Londono MD PCP: Dr. Mei Cummins MD Status:AD M IN Location: [place] [address] HPI History of Present Illness Chief Complaint: [...] The procedure had complications necessitating transfer to [facility]. He was cared for by Dr. [...] similar symptoms: No Recent Illness/Hospitalization: No PFSH PFS Medical History Abrasion Anxiety Benign essential HTN [...] 92.4 H Lymph % (Auto) 3.7 L Weld % (Auto) 3.2 Eos % (Auto) 0.1 [...] duration 70 ms. QT duration 294 ms. [place] is normal. There are nonseptic changes which [...] review of outside records), Discussing w/Patient &/or Family/Social Work Manager, Discussing w/Consultants and Arranging Admission or Transfer Discharge Plan Dx/Rx/DC Orders Clinical Impression: Pulmonary embolus, Pulmonary cavitary lesion, Benign essential HTN, COPD with acute exacerbation, Major hemoptysis, Acidosis, lactic, Sinus tachycardia by electrocardiogram, Pulmonary neoplasm, History of coronary artery disease Disposition Disposition: Acute Care Hospital [facility] What to do if you have Problems For any increased pain, shortness of breath, bleeding, nausea or vomiting, chestpain, or any unexpected problems, contact your Primary Care Provider. Call [facility] ([phone]) or report to the closest Emergency Room. Call 911 if necessary. 03/25/23 1530 <Electronically signed by Randy Londono MD> Cosigner Signature (if applicable): CC: Dr. Mei Cummins MD ~ Signed [facility] Work Phone: 1(663) 145-134001-24-2024 Discharge summary Author Randy Londono [facility] March 25, 2023 3:37pm Note Date/Time March 25, 2023 1 :14pm [facility] Medical Records Department [address] [place] [address] Emergency Department Summary 03/25/23 MR#: [id number] Acct: [id number] Name: OSWALDO CORLEY Rep #:[id number] : 1940 82 From: Randy Londono MD PCP: Dr. Mei Cummins MD Status:AD M IN Location: [place] [address] HPI History of Present Illness Chief Complaint: [...] The procedure had complications necessitating transfer to [facility]. He was cared for by Dr. [...] similar symptoms: No Recent Illness/Hospitalization: No PFSH PFS Medical History Abrasion Anxiety Benign essential HTN [...] 92.4 H Lymph % (Auto) 3.7 L Weld % (Auto) 3.2 Eos % (Auto) 0.1 [...] MD at 14:30 EST , ADDENDUM: 03/25/23 3466 IMPRESSION: 1. Pulmonary embolism in second branches [...] duration 70 ms. QT duration 294 ms. [place] is normal. There are nonseptic changes which [...] review of outside records), Discussing w/Patient &/or Family/Social Work Manager, Discussing w/Consultants and Arranging Admission or Transfer Discharge Plan Dx/Rx/DC Orders Clinical Impression: Pulmonary embolus, Pulmonary cavitary lesion, Benign essential HTN, COPD with acute exacerbation, Major hemoptysis, Acidosis, lactic, Sinus tachycardia by electrocardiogram, Pulmonary neoplasm, History of coronary artery disease Disposition Disposition: Acute Care [facility] What to do if you have Problems For any increased pain, shortness of breath, bleeding, nausea or vomiting, chestpain, or any unexpected problems, contact your Primary Care Provider. Call [facility] ([phone]) or report to the closest Emergency Room. Call 911 if necessary. 03/25/23 2624 <Electronically signed by Randy Londono MD> Cosigner Signature (if applicable): CC: Dr. Mei Cummins MD ~ Signed [facility] Work Phone: 1(428) 953-395711-21-2023 History of Present illness Narrative* Ab Calvillo MD - 01/20/2023 11:45 AM EST Images from the original note were not included. . [facility] [place] Note Patient name: Oswaldo Corley PCP: Mei Cummins MD CC: Follow-up COPD Note: Part of note copied forward from [facility] 10/13/2022: HPI: Oswaldo Corley 82 [...] DATE OF EXAM: Nov 18 2022 3:21PM [facility] 0539 - CT CHEST W IVCON [...] no intervention required Ab Calvillo MD [facility] [place] documented in this encounterMercy Hospital11-03-2023 Miscellaneous Notes* Telephone Encounter - Vickie [...] Completed form needs to be faxed to [facility] at [phone]. Route to [place] when form completed for processing documented in this encounterMercy Hospital10-20-2023 History of Present illness Narrative* Mei [...] seems to help. Derm - Follows with Trikane Espinosa for precancerous skin lesion on the [...] done Influenza Vaccine(1) due on 10/31/2022 Covid-19 Vaccine(2022- season) due on 10/31/2022 HbA1C due on [...] Past Histories independently gathered by the clinical sales support assistant and the remaining scribed note [...] AM. Vickie Carrillo Ma documented in this encounterMercy Hospital09-25-2023 Discharge summary Author Cristi Godinez [facility] November 24, 2022 4:58pm Note Date/Time November 24, 2022 3:08pm [facility] Medical Records Department [address] [place] [address] Emergency Department Summary 11/24/22 MR#: [id number] Acct: [id number] Name: OSWALDO CORLEY Rep #:[id number] : 1940 82 From: Cristi Godinez MD PCP: Dr. Mei Cummins MD Status:RE G ER Location: ED ADDENDUM by Dr. Cristi Godinez MD on 11/24/22 at 1658 Been interpretation the patient's EKG shows sinus rhythm with occasional PVC. Overall rate is 88. No acute ST elevation to depression but there are some nonspecific changes. OK interval, QRS duration and QTc are normal. [...] a pneumothorax. He was transferred up to [facility]. They ended up doing surgery to remove the nodule. But he had a residual collection of fluid and small localized pneumothorax. They decided it was not appropriate to go to do any further therapy. He has had that ever since. He occasionally gets pain in the area. His CT done just last week that I looked at on [facility] shows that he has a localized pneumothorax [...] uncommon but it is a little worse. [facility] Medical History Abrasion Anxiety Benign essential HTN [...] chewable tablet 81 mg PO DAILY@0800 heart health 12/29/14 [History Last Taken 07/08/20] nitroglycerin 0.4 [...] 92.9 H Lymph % (Auto) 2.3 L Weld % (Auto) 3.8 Eos % (Auto) 0.2 [...] your Primary Care Provider. Call [facility] ([phone]) or report to the closest Emergency Room. Call 911 if necessary. 11/24/22 1656 <Electronically signed by Cristi Godinez MD> Cosigner Signature (if applicable): CC: Dr. Mei Cummins MD ~ Signed [facility] Work Phone: 1(344) 940-859309-25-2023 Miscellaneous Notes* Telephone Encounter - Jamshid Brown APRN.DANELLE - 11/24/2022 1:47 PM EDT The following approved medication requests have been transmitted electronically. Requested Prescriptions Pending Prescriptions Disp Refills nitroglycerin sublingual (NITROSTAT) 0.4 mg SL tablet 25 tablet 1 Sig: Dissolve 1 tablet under the tongue every 5 minutes as needed. Jamshid Brown APRN.MEDICAL DEVICE ASSEMBLER * Telephone Encounter - Erica Hunt LPN - 11/24/2022 1:24 PM EDT Patient phones requesting refills as follows: Requested Prescriptions Pending Prescriptions Disp Refills nitroglycerin sublingual (NITROSTAT) 0.4 mg SL tablet Sig: Dissolve 1 tablet under the tongue every 5 minutes as needed. JOSE M-09/19/22 Labs-11/11/22 NOV-12/19/22 Please review and advise. Erica Hunt LPN documented in this encounterMercy Hospital09-19-2023 Instructions* Patient Instructions* Juan Carlos Viveros - 11/18/2022 3:40 PM EDT Powerstep Original Full length. Can purchase at [employer] here in [place], [employer] in [place] or [place]. Also can find in [place] in [facility]. Powersteps can also be purchased online, starting [...] everything fits well together documented in this encounterMercy Hospital09-19-2023 History of Present illness Narrative* Juan [...] plantarflexion, inversion, eversion b/l Radiographs: n/a ASSESSMENT: (M76.283) Posterior tibial tendon dysfunction (primary encounter diagnosis) PLAN: 1. History and physical examination performed. 2. Discussed pain in right foot. Suspect component of flatfoot 3. Offered inserts but patient declined. 4. Powerstep gel inserts offered Juan Carlos Viveros DPM Podiatry [address] [facility] [address] Dept: [phone] Dept * Yina Stringer RN - 11/18/2022 3:28 PM EDT AMB ROOMING [...] Area of previous ulcer is healed but abrading machine tender to touch sometimes. documented in this encounterMercy Hospital09-19-2023 History of Present illness Narrative* Summer Grant RT(R) - 11/18/2022 3:00 PM EDT Radiology [...] Exam(s) Completed: Chest Abdomen Pelvis SIGNATURE: RT Joey(Mikhail) PATIENT NAME: Oswaldo Corley DATE: November 18, 2022 TIME: 3:45 PM documented in this encounterMercy Hospital09-18-2023 Miscellaneous Notes* Telephone Encounter - Jamshid [...] advise. Erica Hunt LPN documented in this encounterMercy Hospital09-08-2023 Procedure note* Ann Knox RPFT - [...] walk at faster pace. documented in this encounterMercy Hospital09-08-2023 History of Present illness Narrative* Ann Knox RPFT - 11/07/2022 1:02 PM EDT PULM FUNCTION SMARTBLOCK: Provider: Ab Calvillo MD Assisting Tech: Ann Knox RPFT Oximetry - Ambulation: 1 documented in this encounterMercy Hospital09-07-2023 Miscellaneous Notes* Telephone Encounter - Tyrell Lamar LPN - 11/06/2022 9:49 AM EDT JOSE M 10/13/22 Patient phones requesting refills as follows: Requested Prescriptions Pending Prescriptions Disp Refills predniSONE (DELTASONE) 10 mg tablet 30 tablet 5 Sig: Take 1 tablet by mouth once daily. Please review and advise. Tyrell Lamar LPN documented in this encounterMercy Hospital08-24-2023 Miscellaneous Notes* Telephone Encounter - Summer Bose LPN - 10/23/2022 3:15 PM EDT Faxed order for Oxygen, pulse oximetry services to [facility] [place]. Summer Bose LPN documented in this encounterMercy Hospital08-22-2023 Miscellaneous Notes* Telephone Encounter - Vickie Carrillo Ma - 10/21/2022 5:18 PM EDT Faxed to [phone]. Vickie Carrillo Ma * Telephone Encounter - Malu Tavares Ma - 10/21/2022 1:26 PM EDT Type of letter/form/fax request - Medical Necessity-Re: Oxygen Form received from fax on 1 floor and placed on MD desk (Dr. Cummins) for completion. Completed form needs to be faxed to [facility] [place]. Route to [place] when form completed for processing documented in this encounterMercy Hospital08-14-2023 History of Present illness Narrative* Ab Calvillo MD - 10/13/2022 12:45 PM EDT . [facility] [place] Note Patient name: Oswaldo SALASN: [id number] PCP: Mei Cummins MD CC: COPD HPI: Oswaldo Corley 82 year old male former 80 pack year smoker, quitting in 2002 with PMH significant for CAD s/p CABG and stents, AAA, DM, HTN, HLD, prostate cancer s/p radation and hormonal therapy, lung cancer, COPD (FEV1 1.43 L 45%) last seen in pulmonary clinic in 2015. He had opted to follow-up with pulmonary at [facility]. History notable for suspicious LLL nodule [...] would be a possible candidate for a [place] valve to improve his shortness of breath and quality of life. No history of recurrent pneumonia or bronchitis. He has never been intubated for hisCOPD. Last CT of the chest was a year ago which showed no new changes suspicious of recurrence of cancer. He is due for his yearly CT next month. 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 0539 - CT CHEST W IVCON [...] unremarkable. Upper abdomen: Suspected small noncalcified gallstones. Plate Straightener (topogram) images: Sternotomy sutures. Hyperexpansion of the [...] No Worked for 36 years in the [employer] with exposure to chemicals Pets: Cats FAMILY [...] therapy -He is not a candidate for [place] valve as he lacks significant emphysema changes [...] which included preparing to see the patient, [id number] patient care, completing clinical documentation, obtaining and/or [...] hour 3 minutes* Ab Calvillo MD [facility] [place] documented in this encounterMercy Hospital08-14-2023 History of Present illness Narrative* Ann Knox RPFT - 10/13/2022 11:30 AM EDT PULM FUNCTION SMARTBLOCK: Provider: Ab Calvillo MD Assisting Tech: Ann Knox RPFT Spirometry w/BD: 1 DLCO: 1 documented in this encounterMercy Hospital08-14-2023 Nurse Note* Tyrell Lamar LPN - 10/13/2022 11:30 AM EDT Intake information documented in the prior visit with JULIEN Lovell today. documented in this encounterMercy Hospital07-31-2023 Instructions* Patient Instructions* Bela Manzano MD - 09/29/2022 2:29 PM EDT We are increasing the Lipitor (Atorvastatin) to 40 mg once per day Repeat fasting blood work in 4-5 months documented in this encounterMercy Hospital07-31-2023 History of Present illness Narrative* Bela Manzano MD - 09/29/2022 2:00 PM EDT Images from the original note were not included. [facility] SECTION OF REGIONAL CARDIOLOGY Cardiology ([facility]) [address] [address] OUTPATIENT VISIT DATE 09/29/2022 PRIMARY CARE PHYSICIAN: Mei Cummins [address] [place] [address] HISTORY OF PRESENT ILLNESS: Mr. Corley is [...] OM2. The OM2 fills competitively from the [place] LCX and the SVG. RCA: Dominant vessel [...] - Exam was compared with the prior CC echocardiographic exam performed on 09/23/10. The mitral [...] AND RECOMMENDATIONS: 1. Coronary artery 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 [place] heart without angina pectoris- ICD9: 414.01, ICD10: [...] I73.9 Bela Manzano MD documented in this encounterMercy Hospital07-31-2023 Miscellaneous Notes* Telephone Encounter - Jamshid [...] of last office visit in primary care: [facility] 09/19/22 NOV 12/19/22 Last 2 Encounter Wt Readings: Date: Wt: 09/19/2022 82.2 kg (181 lb 3.2 oz) 06/26/2022 80.2 kg (176 lb 12.8 oz) Please advise. Thank you. SERENA Garcia documented in this encounterMercy Hospital07-05-2023 Instructions* Patient Instructions* Juan Carlos Viveros - 09/03/2022 1:45 PM EDT Your ulceration is healed Continue with betadine for another week As the skin toughen's up, can apply moisturizing cream Limit how much moisturizing cream as too much moisture can lead to wounds. Call if any issues arise. documented in this encounterMercy Hospital07-05-2023 History of Present illness Narrative* Juan [...] 5.0 4.3 - 5.6 % Final Comment: [place] [employer] guidelines indicate that patients with [...] ulcer. Jacy Sunshine LPN documented in this encounterMercy Hospital06-29-2023 Miscellaneous Notes* Telephone Encounter - Twila Weston APRN.CNP - 08/28/2022 12:34 PM EDT Consult for pulmonology placed. He may schedule any time. Thank you. Twila Weston APRN.DANELLE * Telephone Encounter - Rosalinda Stapleton - 08/28/2022 11:51 AM EDT Pt wanting referral for pulm here in [place] for his COPD. Please advise documented in this encounterMercy Hospital06-27-2023 History of Present illness Narrative* Parish [...] 26, 2022 1:47 PM documented in this encounterMercy Hospital06-21-2023 Instructions* Patient Instructions* Juan Carlos Viveros - 08/20/2022 1:13 PM EDT At this time, your wound is very tiny. Slight moisture build up. Stop the neosporin and use betadine. If the wound gets severely dry, use a small amount of neosporin Ok to air out at night. Continue with band aide outside Continue with post-op shoe documented in this encounterMercy Hospital06-21-2023 History of Present illness Narrative* Juan Carlos Viveros - 08/20/2022 1:01 PM EDT FOLLOW UP [...] 5.0 4.3 - 5.6 % Final Comment: [place] [employer] guidelines indicate that patients with [...] Continues post op shoe. documented in this encounterMercy Hospital06-06-2023 History of Present illness Narrative* Tyrell Vigil DO - 08/05/2022 11:58 AM EDT This office note has been dictated. Tyrell Vigil DO documented in this encounterMercy Hospital05-31-2023 History of Present illness Narrative* Jacy Sunshine LPN - 07/30/2022 1:54 PM EDT Apligraft #4 LOT # [id number] EXP 2022-08-08 Unit #114:[id number] Jacy Sunshine LPN [...] 5.0 4.3 - 5.6 % Final Comment: [place] [employer] guidelines indicate that patients with [...] nonadherent bandage F/u in 2 weeks with me Juan Carlos Viveros DPM * Jacy Sunshine LPN - 07/30/2022 1:18 PM EDT AMB ROOMING INTAKE FLOWSHEET DATA Patient presents with: Right Foot - Established Patient, Follow Up, Ulcer Patient present to office for apligraft application. Jacy Sunshine LPN documented in this encounterMercy Hospital05-30-2023 History of Present illness Narrative* Tyrell Vigil DO - 07/29/2022 11:47 AM EDT This office note has been dictated. Tyrell Vigil DO documented in this encounterMercy Hospital05-09-2023 History of Present illness Narrative* Jacy Sunshine LPN - 07/08/2022 2:05 PM EDT LOT # [id number] EXP 2022-07-15 24:05.01 Jacy Sunshine LPN * [...] 5.0 4.3 - 5.6 % Final Comment: [place] [employer] guidelines indicate that patients with [...] of right heel with fat layer exposed ([facility]) (primary encounter diagnosis) (I73.9) Peripheral arterial disease ([facility]) PLAN: Discussed ulceration of right heel. The [...] possible re-applicaiton Juan Carlos Viveros DPM * Jacy Sunshine LPN - 07/08/2022 1:05 PM EDT AMB ROOMING INTAKE FLOWSHEET DATA Patient presents with: Right Foot - Established Patient, Follow Up, Ulcer Patient present to office 1 week following puraply application to right heel ulcer. Jacy Sunshine LPN documented in this encounterMercy Hospital05-09-2023 Instructions* Patient Instructions* Jacy Sunshine LPN - 07/08/2022 1:26 PM EDT You had apligraf applied today. Please leave dressing intact on inner layer. Can remove outer layerto level of nonadherent Keep clean and dry Continue with surgical shoe Follow-up in 1 week documented in this encounterMercy Hospital05-02-2023 History of Present illness Narrative* Yina Stringer RN - 07/01/2022 2:21 PM EDT Dressing applied to Puraply, gauze and gauze wrap. LOT # [id number] EXP 07/04/2024 Yina Stringer RN * Juan [...] 5.0 4.3 - 5.6 % Final Comment: [place] [employer] guidelines indicate that patients with [...] purply. Jacy Sunshine LPN documented in this encounterMercy Hospital04-27-2023 History of Present illness Narrative* Mei [...] - Chronic anxiety that pt has used penitentiary benzo, Ativan 1 mg 0.5-1 tab TID [...] with Pulm 6. Coronary artery 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 [place] heart without angina pectoris- ICD9: 414.01, ICD10: [...] Past Histories independently gathered by the clinical sales support assistant and the remaining scribed note [...] AM. Vickie Carrillo Ma documented in this encounterMercy Hospital04-25-2023 Instructions* Patient Instructions* Juan Carlos Viveros - 06/24/2022 1:34 PM EDT Continue with tray and surgical shoe Will plan for graft application next week documented in this encounterMercy Hospital04-25-2023 History of Present illness Narrative* Juan [...] 5.4 4.3 - 5.6 % Final Comment: [place] [employer] guidelines indicate that patients with [...] w/ stents COPD (chronic obstructive pulmonary disease) ([facility]) Diabetic ulcer of right foot (HCC) 04/30/2022 [...] Pain Jacy Sunshine LPN documented in this encounterMercy Hospital04-20-2023 Miscellaneous Notes* Telephone Encounter - Jacy Sunshine LPN - 06/19/2022 11:14 AM EDT Apligraf Application was filled out and sent to [email or web address] along with insurance cards, patient face sheet [...] folder. Jacy Sunshine LPN documented in this encounterMercy Hospital04-19-2023 Instructions* Patient Instructions* Juan Carlos Viveros - 06/18/2022 1:21 PM EDT Continue with tray and surgical shoe Will have insurance ran for graft Follow-up in 1 weeks documented [facility] this [facility]04-[facility] History of Present illness Narrative* Juan Carlos [...] 5.4 4.3 - 5.6 % Final Comment: [place] [employer] guidelines indicate that patients with [...] today. Jacy Sunshine LPN documented in this encounterMercy Hospital04-11-2023 Instructions* Patient Instructions* Juan Carlos Viveros - 06/10/2022 3:07 PM EDT Cleanse wound with saline dailiy Apply tray to right heel ulceration daily Continue with post-op shoe Avoid pressure to heel while in bed documented in this encounterMercy Hospital04-11-2023 History of Present illness Narrative* Juan Carlos Viveros - 06/10/2022 2:54 PM EDT FOLLOW UP [...] 5.4 4.3 - 5.6 % Final Comment: [place] [employer] guidelines indicate that patients with [...] Ulcer Jacy Sunshine LPN documented in this encounterMercy Hospital04-04-2023 History of Present illness Narrative* Tyrell Vigil DO - 06/03/2022 12:00 AM EDT NAME: OSWALDO CORLEY [facility] NO: [id number] DATE OF SERVICE: 06/03/2022 Subjective: Mr. Corley is here to follow up on right femoral endarterectomy. Overall, he is doing well. Denies any new complaints. He says his leg feels much improved. Objective: His vital signs are stable. He is in no distress. His incision is well healed. Tracy were removed without difficulty. Assessment/Plan: Peripheral arterial disease with ulceration. We will get duplex and baseline ABIs post revascularization in a few weeks. He will follow up with me at that point in time. Tyrell Vigil D.O. KB/089 Audio #: [id number] Date Dictated: 06/03/2022 09:54:39 Date Typed: 06/09/2022 07:29:58 Date Revised: documented in this encounterMercy Hospital03-28-2023 Miscellaneous Notes* Telephone Encounter - Mei Cummins MD - 05/27/2022 3:59 PM EDT OK to refill as ordered Mei Cummins MD documented in this encounterMercy Hospital03-28-2023 Instructions* Patient Instructions* Juan Carlos Viveros - 05/27/2022 1:55 PM EDT Apply santyl to right heel ulceration daily Cleanse wound with saline and apply santyl and guaze Wear surgical shoe Make sure to avoid pressure while in bed [facility] History of Present illness Narrative* Juan [...] 5.4 4.3 - 5.6 % Final Comment: [place] [employer] guidelines indicate that patients with HgbA1c in the range 5.7-6.4% are at increased risk for development of diabetes, and intervention by lifestyle modification may be beneficial. HgbA1c greater or equal to 6.5% is considered diagnostic of diabetes. PCP: Mei Cummins MD PAST MEDICAL HISTORY Diagnosis Date Abdominal aortic aneurysm (AAA) without rupture ([facility]) 11/19/2018 Atypical chest pain CAD (coronary artery [...] if we switch to something else Juan Carlos Viveros DPM * Jacy Sunshine LPN - 05/27/2022 1:28 PM EDT AMB ROOMING INTAKE FLOWSHEET DATA Patient presents with: Right Foot - Established Patient, Follow Up, Ulcer Patient present with . Patient has ulcer to right heel. Jacy Sunshine LPN [facility] History of Present illness Narrative* Tyrell Vigil DO - 05/20/2022 10:04 AM EDT This office note has been dictated. Tyrell Vigil DO documented in this encounter[facility]23 NoteHNO ID: [id number] Author: Rosa Michel RN Service: Care Management [...] 16, 2022 TIME: 2:07 PM PAGER/CONTACT #: [phone] NoteHNO ID: [id number] Author: Alethea Arreola PA-C Service: Vascular Surgery Author Type: Physician Cold Rolling Machine Setter Type: Progress Notes Filed: 05/16/2022 11:24 AM Note Text: [facility] POSTOP PROGRESS NOTE Template ID: [id number] Service Date: 05/16/2022 Admit Date: 05/13/2022Service Time: [...] tab(s) (PLAVIX) 75 mg ORAL DAILY Given, 05/17 0742 05/14/22 0900 -- 05/13/22 2100 heparin 5,000 Units injection (Surgical Risk Categories) 5,000 Units SUBCUTANEOUS EVERY 12 HOURS Given, 05/17 0743 05/13/22 174 -- 05/13/22 173 heparin 100 unit/mL 500 Units injection (Patient with IV access) 5 mL INTRAVENOUS DIRECTED NEEDED Ordered 05/13/22 174 -- 05/13/22 220 activity - mobilize patient ([place]) 05/13/22 174 pneumatic compression stockings ([place] VTE Prophylaxis: VTE prophylaxis appropriate ALLERGIES [...] (98.6 ?F) Oral 85 16 95 % 05/15/222003 131/61 37.1 ?C (98.8 ?F) Oral 85 [...] 6.59 6.71 7.55 HB (more content not included)...[facility] [id number] NoteHNO ID: [id number] Author: Rosa Michel RN Service: Care Management Author Type: Registered Nurse Type: Care Mgt Progress Note Filed: 05/15/2022 4:38 PM Note Text: CARE MANAGEMENT PROGRESS NOTE SERVICE DATE: 05/15/2022 SERVICE TIME: 4:37 PM LOS: 2 days Needs Prior to Discharge: To Be Determined;Discharge Transportation [place] of Choice Given: Yes Level of Care [...] 15, 2022 TIME: 4:37 PM PAGER/CONTACT #: [phone] [id number] NoteHNO ID: [id number] Author: Alethea Arreola PA-C Service: Vascular Surgery Author Type: Physician Cold Rolling Machine Setter Type: Progress Notes Filed: 05/15/2022 12:35 PM Note Text: [facility]ERY POSTOP PROGRESS NOTE Template ID: [id number] Service Date: 05/15/2022 Admit Date: 05/13/2022Service Time: [...] tab(s) 81 mg ORAL DAILY Given, 05/15 94605/14/22 0900 -- 03/15/23 0930 clopidogrel 75 mg tab(s) (PLAVIX) 75 mg ORAL DAILY Given, 05/15 0946 05/14/22 0900 -- 05/13/22 2100 heparin 5,000 Units injection (Surgical Risk Categories) 5,000 Units SUBCUTANEOUS EVERY 12 HOURS Given, 05/15 0947 05/13/22 174 -- 05/13/22 173 heparin 100 unit/mL 500 Units injection (Patient with IV access) 5 mL INTRAVENOUS DIRECTED NEEDED Ordered 05/13/22 174 -- 05/13/22 220 activity - [place]ize [place] 05/13/22 174 pneumatic compression stockings ([place] VTE Prophylaxis: VTE prophylaxis appropriate ALLERGIES [...] DP/PT doppler signals bila (more content not included)...[facility] [id number] NoteHNO ID: [id number] Author: Jb Sotelo RN Service: Care Management [...] transport to home. Health Care Power of Director Ship HCPOA primary agent: Serenity Corley (spouse) [phone] / [phone] hcpoa 1st alternate: Malu Corley (daughter) [phone] PRIMARY CARE PHYSICIAN: Mei Cummins MD Primary Contact: Extended Emergency Contact Information Primary Emergency Contact: Serenity Corley(HCPOA primary agent) Address: [address] [place] [address] [place] [address] Mobile Relation: Spouse Secondary Emergency Contact: Malu Corley(hcpoa 1st alternate) Mobile Relation: Daughter ADMISSION STATUS: Inpatient Insurance Provider: MEDICARE A AND B NEEDS PRIOR TO DISCHARGE Needs Prior to Discharge: To Be Determined POTENTIAL TRANSITION PLANS To Be Determined Based on clinical judgement, Care Management will address the following needs: Medical;Functional Patient's perception of need for this admission: vasc surgery ADVANCE DIRECTIVES Current Advance Directive: Health Care Power of Director Ship In Chart: Yes Up To Date and [...] Within the Past 30 days? PATIENT SCREEN Patient/Smoking Tobacco Packing Machine Hand Stated Goals: To return home to life [...] Completely I feel financially burdened by my [id number] expenses for my prescription medication:: 0 - [...] (vendor)) Has the Patient Been in a Senior Care Facility in the Past 30 days?: No FREEDOM OF CHOICE EXPLAINED: transition care needs are yet to be determined Are you interested in bedside delivery of your medications? yes SIGNATURE: Jb Sotelo RN PATIENT NAME: Oswaldo Corley DATE: May 14, 2022 TIME: 1:27 PM CONTACT #: [phone] NoteHNO ID: [id number] Author: Marsha Blanca MD Service: Vascular Surgery Author Type: Resident Type: Progress Notes Filed: 05/14/2022 11:38 AM Note Text: [facility] POSTOP PROGRESS NOTE Template ID: [id number] Service Date: 05/14/2022 Admit Date: 05/13/2022Service Time: [...] tab(s) 81 mg ORAL DAILY Given, 05/14 0830 05/14/22 09 -- 05/14/22929 clopidogrel 75 mg tab(s) (PLAVIX) 75 mg ORAL DAILY Given, 05/14 1023 05/14/22 09 -- 05/13/22 2100 heparin 5,000 Units injection (Surgical Risk Categories) 5,000 Units SUBCUTANEOUS EVERY 12 HOURS Given, 05/14 0805/13/22 174 -- 05/13/22 173 heparin 100 unit/mL 500 Units injection (Patient with IV access) 5 mL INTRAVENOUS DIRECTED NEEDED Ordered 05/13/22 174 -- 05/13/22 220 activity - [place]ize [place] 05/13/22 174 pneumatic compression stockings ([place] VTE Prophylaxis: VTE prophylaxis appropriate ALLERGIES [...] 36.2* PLT 153 163 Recent Labs 05/14/22 03405/13/22 1817 NA 141 139 K 4.1 4.0 BUN 14 13 CREAT 0.82 0.72* GLUC 112* 130* MG 2.0 1.9 Recent Labs 05/13/22 (more content not included)...[facility] [id number] NoteHNO ID: [id number] Author: Alethea Arreola PA-C Service: Vascular Surgery Author Type: Physician Cold Rolling Machine Setter Type: Progress Notes Filed: 05/14/2022 1:28 PM Note Text: [facility]ASC[facility]ERY POSTOP PROGRESS NOTE Template ID: [id number] Service Date: 05/14/2022 Admit Date: 05/13/2022Service Time: [...] mg ORAL DAILY Given, 05/14 1023 05/14/22 09 -- 05/13/22 2100 heparin 5,000 Units injection (Surgical Risk Categories) 5,000 Units SUBCUTANEOUS EVERY 12 HOURS Given, 05/14 0801 05/13/22 1742 -- 05/13/22 1739 heparin 100 unit/mL 500 Units injection (Patient with IV access) 5 mL INTRAVENOUS DIRECTED NEEDED Ordered 05/13/22 174 -- 05/13/22 2200 activity - mobilize patient ([place]) 05/13/22 1745 pneumatic compression stockings [place] VTE Prophylaxis: VTE prophylaxis appropriate ALLERGIES [...] PLT 153 163 Recent Labs 05/14/22 0340 05/13/22 1817 NA 141 139 K 4.1 4.0 BUN 14 13 CREAT 0.82 0.72* GLUC 112* 130* MG 2.0 1.9 Recent Labs 05/13/221816 APTT 31.2 INR <0.9* Impression: (more content not included)...[facility] [id number] NoteHNO ID: [id number] Author: Arleen Pringle MD Service: Critical Care [...] BMP, Mg, Phos Recent Labs 05/14/22 0340 05/13/22 1817 WBC [...] last 168 hours. INTAKE/OUTPUT: Date 05/13/22699 - 05/14/22 0659 05/14/22 0700 - 05/15/22 0659 Shift 1612-1743 6827-5308 7324-1721 24 Hour Total 9091-5624 9098-1498 5580-3350 24 Hour Total INTAKE IV 1100 1100 2200 Volume (mL) (ceFAZolin iv piggyback 2 g in D5W (iso-osmotic) 100 mL (ANCEF)) 100 100 Volume (mL) (lactated ringers iv infusion) 850 850 Volume (mL) (lactated ringers iv infusion) 8813 200 0395 Shift Total 1100 1100 2200 OUTPUT Urine 490 905 947 6547 OR Urine Output 490 260 750 Output ( Indwelling Urinary Catheter 05/13/22 Coude 16 Fr) 305 560 865 Blood 100 100 Estimated Blood loss 100 100 Shift Total 490 290 844 1752 Weight (kg) 79.4 79.4 79.4 79.4 79.4 [...] Plavix initiated - Con (more content not included)...[facility] [id number] NoteHNO ID: [id number] Author: MANI Quach Service: ? Author Type: Blemish Remover Type: Anesthesia Procedure Notes Filed: 05/13/2022 11:28 [...] May 13, 2022 TIME: 11:27 AM CSN: [id number] NoteHNO ID: [id number] Author: MANI Quach Service: ? Author Type: Blemish Remover Type: Anesthesia Procedure Notes Filed: 05/13/2022 11:25 [...] May 13, 2022 TIME: 11:24 AM CSN: [id number] NoteHNO ID: [id number] Author: MANI Quach Service: ? Author Type: Blemish Remover Type: Anesthesia Procedure Notes Filed: 05/13/2022 11:24 AM Note Text: ANESTHESIOLOGY PROCEDURE NOTE A-Line General Information Procedure Start Time/Medication Administration: 05/13/2022 11:07 AM Consent Obtained: Yes Indications: continuous blood pressure monitoring and blood sampling needed Staffing CAA: MANI Quach Performed by: KIMBERLYN Preparation Sterility Preparation: sterile gloves, drapes, and [...] May 13, 2022 TIME: 11:23 AM CSN: [id number] History of Present illness Narrative* Bela Manzano MD - 05/12/2022 11:40 AM EDT Images from the original note were not included. [facility] SECTION OF REGIONAL CARDIOLOGY Cardiology ([facility]) [address] [facility] [id number] OUTPATIENT VISIT DATE 05/12/2022 PRIMARY CARE PHYSICIAN: Mei Cummins [address] [place] [address] HISTORY OF PRESENT ILLNESS: Mr. Corley is [...] OM2. The OM2 fills competitively from the [place] LCX and the SVG. RCA: Dominant vessel [...] AND RECOMMENDATIONS: 1. Coronary artery 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 [place] heart without angina pectoris- ICD9: 414.01, ICD10: [...] procedure. Bela Manzano MD documented in this [facility]03-02-2023 History of Present illness Narrative* Rebecca Granados - 05/01/2022 1:46 PM EST . 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 [facility] History of Past illness Narrative* Problem Noted Date Diagnosed Date Resolved Date Diabetic ulcer of right foot 04/30/2022 10/13/2022 Last Assessment & Plan: Assessment: following podiatry ASCVD (arteriosclerotic card iovascular disease) 11/20/2016 09/05/2019 documented as of this encounter (statuses as of 10/13/2022) [facility] illness Narrative* Problem Noted Date Diagnosed Date Resolved Date Diabetic ulcer of right foot 04/30/2022 10/13/2022 Last Assessment & Plan: Assessment: following podiatry ASCVD (arteriosclerotic card iovascular disease) 11/20/2016 09/05/2019 documented as of this encounter (statuses as of 10/14/2022) [facility] of Past illness Narrative* Problem Noted Date Diagnosed Date Resolved Date Diabetic ulcer of right foot 04/30/2022 10/13/2022 Last Assessment & Plan: Assessment: following podiatry ASCVD (arteriosclerotic card iovascular disease) 11/20/2016 09/05/2019 documented as of this encounter (statuses as of 10/22/2022) [address]01-2023 History of Past illness Narrative* Problem Noted Date Diagnosed Date Resolved Date Diabetic ulcer of right foot 04/30/2022 10/13/2022 Last Assessment & Plan: Assessment: following podiatry ASCVD (arteriosclerotic card iovascular disease) 11/20/2016 09/05/2019 documented as of this encounter (statuses as of 10/24/2022) [address]01[address]23 History of Past illness Narrative* Problem Noted Date Diagnosed Date Resolved Date Diabetic ulcer of right foot 04/30/2022 10/13/2022 Last Assessment & Plan: Assessment: following podiatry ASCVD (arteriosclerotic card iovascular disease) 11/20/2016 09/05/2019 documented as of this encounter (statuses as of 11/06/2022) [facility] Narrative* Problem Noted Date Diagnosed Date Resolved Date Diabetic ulcer of right foot 04/30/2022 10/13/2022 Last Assessment & Plan: Assessment: following podiatry ASCVD (arteriosclerotic card iovascular disease) 11/20/2016 09/05/2019 documented as of this encounter (statuses as of 11/07/2022) [facility] Narrative* Problem Noted Date Diagnosed Date Resolved Date Diabetic ulcer of right foot 04/30/2022 10/13/2022 Last Assessment & Plan: Assessment: following podiatry ASCVD (arteriosclerotic card iovascular disease) 11/20/2016 09/05/2019 documented as of this encounter (statuses as of 11/17/2022) [facility] Narrative* Problem Noted Date Diagnosed Date Resolved Date Diabetic ulcer of right foot 04/30/2022 10/13/2022 Last Assessment & Plan: Assessment: following podiatry ASCVD (arteriosclerotic card iovascular disease) 11/20/2016 09/05/2019 documented as of this encounter (statuses as of 11/19/2022) [facility] Narrative* Problem Noted Date Diagnosed Date Resolved Date Diabetic ulcer of right foot 04/30/2022 10/13/2022 Last Assessment & Plan: Assessment: following podiatry ASCVD (arteriosclerotic card iovascular disease) 11/20/2016 09/05/2019 documented as of this encounter (statuses as of 11/24/2022) [facility] Narrative* Problem Noted Date Diagnosed Date Resolved Date Diabetic ulcer of right foot 04/30/2022 10/13/2022 Last Assessment & Plan: Assessment: following podiatry ASCVD (arteriosclerotic card iovascular disease) 11/20/2016 09/05/2019 documented as of this encounter (statuses as of 12/19/2022) [facility] Narrative* Problem Noted Date Diagnosed Date Resolved Date Diabetic ulcer of right foot 04/30/2022 10/13/2022 Last Assessment & Plan: Assessment: following podiatry ASCVD (arteriosclerotic card iovascular disease) 11/20/2016 09/05/2019 documented as of this encounter (statuses as of 01/03/2023) [facility] Narrative* Problem Noted Date Diagnosed Date Resolved Date Diabetic ulcer of right foot 04/30/2022 10/13/2022 Last Assessment & Plan: Assessment: following podiatry ASCVD (arteriosclerotic card iovascular disease) 11/20/2016 09/05/2019 documented as of this encounter (statuses as of 01/04/2023) [facility] Narrative* Problem Noted Date Diagnosed Date Resolved Date Diabetic ulcer of right foot 04/30/2022 10/13/2022 Last Assessment & Plan: Assessment: following podiatry ASCVD (arteriosclerotic card iovascular disease) 11/20/2016 09/05/2019 documented as of this encounter (statuses as of 01/04/2023) [facility] Narrative* Problem Noted Date Diagnosed Date Resolved Date Diabetic ulcer of right foot 04/30/2022 10/13/2022 Last Assessment & Plan: Assessment: following podiatry ASCVD (arteriosclerotic card iovascular disease) 11/20/2016 09/05/2019 documented as of this encounter (statuses as of 01/04/2023) [facility] Narrative* Problem Noted Date Diagnosed Date Resolved Date Diabetic ulcer of right foot 04/30/2022 10/13/2022 Last Assessment & Plan: Assessment: following podiatry ASCVD (arteriosclerotic card iovascular disease) 11/20/2016 09/05/2019 documented as of this encounter (statuses as of 01/04/2023) [facility] Narrative* Problem Noted Date Diagnosed Date Resolved Date Diabetic ulcer of right foot 04/30/2022 10/13/2022 Last Assessment & Plan: Assessment: following podiatry ASCVD (arteriosclerotic card iovascular disease) 11/20/2016 09/05/2019 documented as of this encounter (statuses as of 01/21/2023) [facility] Narrative* Problem Noted Date Diagnosed Date Resolved Date Diabetic ulcer of right foot 04/30/2022 10/13/2022 Last Assessment & Plan: Assessment: following podiatry ASCVD (arteriosclerotic card iovascular disease) 11/20/2016 09/05/2019 documented as of this encounter (statuses as of 02/14/2023) [facility] Narrative* Problem Noted Date Diagnosed Date Resolved Date Diabetic ulcer of right foot 04/30/2022 10/13/2022 Last Assessment & Plan: Assessment: following podiatry ASCVD (arteriosclerotic card iovascular disease) 11/20/2016 09/05/2019 documented as of this encounter (statuses as of 04/09/2023) [facility] Narrative* Problem Noted Date Diagnosed Date Resolved Date Diabetic ulcer of right foot 04/30/2022 10/13/2022 Last Assessment & Plan: Assessment: following podiatry ASCVD (arteriosclerotic card iovascular disease) 11/20/2016 09/05/2019 documented as of this encounter (statuses as of 04/09/2023) [facility] Narrative* Problem Noted Date Diagnosed Date Resolved Date Diabetic ulcer of right foot 04/30/2022 10/13/2022 Last Assessment & Plan: Assessment: following podiatry ASCVD (arteriosclerotic card iovascular disease) 11/20/2016 09/05/2019 documented as of this encounter (statuses as of 04/15/2023) [facility] Narrative* Problem Noted Date Diagnosed Date Resolved Date Diabetic ulcer of right foot 04/30/2022 10/13/2022 Last Assessment & Plan: Assessment: following podiatry ASCVD (arteriosclerotic card iovascular disease) 11/20/2016 09/05/2019 documented as of this encounter (statuses as of 04/15/2023) [facility] Narrative* Problem Noted Date Diagnosed Date Resolved Date Diabetic ulcer of right foot 04/30/2022 10/13/2022 Last Assessment & Plan: Assessment: following podiatry ASCVD (arteriosclerotic card iovascular disease) 11/20/2016 09/05/2019 documented as of this encounter (statuses as of 04/21/2023) [facility] Narrative* Problem Noted Date Diagnosed Date Resolved Date Diabetic ulcer of right foot 04/30/2022 10/13/2022 Last Assessment & Plan: Assessment: following podiatry ASCVD (arteriosclerotic card iovascular disease) 11/20/2016 09/05/2019 documented as of this encounter (statuses as of 04/23/2023) [facility] Narrative* Problem Noted Date Diagnosed Date Resolved Date Diabetic ulcer of right foot 04/30/2022 10/13/2022 Last Assessment & Plan: Assessment: following podiatry ASCVD (arteriosclerotic card iovascular disease) 11/20/2016 09/05/2019 documented as of this encounter (statuses as of 05/13/2023) [facility] Narrative* Problem Noted Date Diagnosed Date Resolved Date Diabetic ulcer of right foot 04/30/2022 10/13/2022 Last Assessment & Plan: Assessment: following podiatry ASCVD (arteriosclerotic card iovascular disease) 11/20/2016 09/05/2019 documented as of this encounter (statuses as of 05/19/2023) [facility] Narrative* Problem Noted Date Diagnosed Date Resolved Date Diabetic ulcer of right foot 04/30/2022 10/13/2022 Last Assessment & Plan: Assessment: following podiatry ASCVD (arteriosclerotic card iovascular disease) 11/20/2016 09/05/2019 documented as of this encounter (statuses as of 05/19/2023) [facility] Narrative* Problem Noted Date Diagnosed Date Resolved Date Diabetic ulcer of right foot 04/30/2022 10/13/2022 Last Assessment & Plan: Assessment: following podiatry ASCVD (arteriosclerotic card iovascular disease) 11/20/2016 09/05/2019 documented as of this encounter (statuses as of 05/22/2023) [facility] Narrative* Problem Noted Date Diagnosed Date Resolved Date Diabetic ulcer of right foot 04/30/2022 10/13/2022 Last Assessment & Plan: Assessment: following podiatry ASCVD (arteriosclerotic card iovascular disease) 11/20/2016 09/05/2019 documented as of this encounter (statuses as of 05/25/2023) [facility] Narrative* Problem Noted Date Diagnosed Date Resolved Date Diabetic ulcer of right foot 04/30/2022 10/13/2022 Last Assessment & Plan: Assessment: following podiatry ASCVD (arteriosclerotic card iovascular disease) 11/20/2016 09/05/2019 documented as of this encounter (statuses as of 06/03/2023) [facility] Narrative* Problem Noted Date Diagnosed Date Resolved Date Diabetic ulcer of right foot 04/30/2022 10/13/2022 Last Assessment & Plan: Assessment: following podiatry ASCVD (arteriosclerotic card iovascular disease) 11/20/2016 09/05/2019 documented as of this encounter (statuses as of 06/08/2023) [facility] Narrative* Problem Noted Date Diagnosed Date Resolved Date Diabetic ulcer of right foot 04/30/2022 10/13/2022 Last Assessment & Plan: Assessment: following podiatry ASCVD (arteriosclerotic card iovascular disease) 11/20/2016 09/05/2019 documented as of this encounter (statuses as of 06/10/2023) [facility] Narrative* Problem Noted Date Diagnosed Date Resolved Date Diabetic ulcer of right foot 04/30/2022 10/13/2022 Last Assessment & Plan: Assessment: following podiatry ASCVD (arteriosclerotic card iovascular disease) 11/20/2016 09/05/2019 documented as of this encounter (statuses as of 06/12/2023) [facility] Narrative* Problem Noted Date Diagnosed Date Resolved Date Diabetic ulcer of right foot 04/30/2022 10/13/2022 Last Assessment & Plan: Assessment: following podiatry ASCVD (arteriosclerotic card iovascular disease) 11/20/2016 09/05/2019 documented as of this encounter (statuses as of 06/15/2023) [facility] Narrative* Problem Noted Date Diagnosed Date Resolved Date Diabetic ulcer of right foot 04/30/2022 10/13/2022 Last Assessment & Plan: Assessment: following podiatry ASCVD (arteriosclerotic card iovascular disease) 11/20/2016 09/05/2019 documented as of this encounter (statuses as of 06/18/2023) [facility] Narrative* Problem Noted Date Diagnosed Date Resolved Date Diabetic ulcer of right foot 04/30/2022 10/13/2022 Last Assessment & Plan: Assessment: following podiatry ASCVD (arteriosclerotic card iovascular disease) 11/20/2016 09/05/2019 documented as of this encounter (statuses as of 06/19/2023) [facility] Miscellaneous Notes* Telephone Encounter - Krystal Michel APRN.DANELLE - 04/30/2022 1:30 PM EST I understand [...] scheduled for 05/[address] Manzano in [place]. Tyrell Ibarra 8 minutes ago (3:49 PM) [...] like a cardiac risk evaluation appt with MEDICAL DEVICE ASSEMBLER as soon as possible prior to surgery. While they would prefer to stay in [place], they would be willing to come to [facility] if they could obtain a late morning/early afternoon appt. Please advise. Tyrell Lamar LPN documented [facility] this [facility] Instructions* Patient Instructions* Juan Carlos Viveros - 04/16/2022 2:55 PM EST Continue with santyl to right heel ulceration Continue with offloading of ulceration documented in this encounterMercy Hospital02-15-2023 History of Present illness Narrative* Juan [...] appears to be healing. documented in this encounterMercy Hospital02-15-2023 Miscellaneous Notes* Telephone Encounter - Jocelin Pastor [facility] - 04/16/2022 10:41 AM EST Orders have been placed for patient to have stress and echo testing done. Patient scheduled for 04/23/22. Encounter closed. * Telephone Encounter - Jocelin Pastor [facility] - 04/15/2022 4:01 PM EST Spoke to Wendy in Dr. Lion office who said he has already signed off on the clearance as moderate risk and there is no reason for him to be seen for a surgery risk assessment. * Telephone Encounter - Jocelin Pastor [facility] - 04/15/2022 2:16 PM EST Faxed cardiac risk evaluation request to Dr. Manzano office [phone]. requesting patient to be seen for cardiac risk evaluation and recommendations to reduce potential risks for surgery. Spoke to spouse to advise they will be getting a call from cariology office or they can call to make an apt with [employer] to get cardiac risk evaluation. Per spouse [...] and discussed with provider. documented in this encounterMercy Hospital02-03-2023 Miscellaneous Notes* Telephone Encounter - Alethea Childress - 04/04/2022 1:08 PM EST Patients calling back regarding update on cardiac clearance. Please advise * Telephone Encounter - Flor Duron RN - 04/01/2022 12:54 PM EST Cardiac clearance form faxed to office attn Dr. Mnazano. Please fill out and send to fax [...] the form. Alethea can be reached at [phone]-this is her direct dial phone number. Faustina Rosen RN documented in this encounterMercy Hospital01-31-2023 Instructions* Patient Instructions* Juan Carlos Viveros - 04/01/2022 11:19 AM EST Continue with santyl to right inside wound. Await clearance for debridement Continue with betadine to outside wound Continue with post-op shoe documented in this encounterMercy Hospital01-31-2023 History of Present illness Narrative* Juan Carlos Viveros - 04/01/2022 11:07 AM EST FOLLOW UP [...] Close/Procedure End Time: 2:17 PM Surgeon(s)/Proceduralist(s) and Cold Rolling Machine Setter(s): Surgeon(s) and Role: * Alex Rivas MD [...] catheterization and diagnostic angiography via left sheath- 42123 Aortic catheterization vie right common femoral artery -34635 Aortogram with right lower extremity angiogram 30315, 92519 Anesthesia: local with IV moderate concious sedation [...] - Follow Up, Ulcer documented in this encounterMercy Hospital01-27-2023 Miscellaneous Notes* Telephone Encounter - Alethea Childress - 03/28/2022 4:14 PM EST Pulmonary clearance form faxed to Dr. Calvillo at [phone] Transmission completed * Telephone Encounter - Alethea Childress - 03/28/2022 3:42 PM EST Cardiac clearance request Sent to 's office Faxed to [phone] Transmission completed documented in this encounterMercy Hospital01-18-2023 History of Present illness Narrative* Catrachita [...] 19, 2022 2:08 PM documented in this encounterMercy Hospital01-18-2023 Instructions* Patient Instructions* Juan Carlos Viveros - 03/19/2022 1:25 PM EST Continue with santyl to larger ulceration. Continue with offloading of heels while in bed Continue with surgical shoe Continue with betadine to smaller ulceration Get xrays Take antibiotic as ordered documented in this encounterMercy Hospital01-18-2023 History of Present illness Narrative* Juan [...] 2 diabetes mellitus, with fat layer exposed ([facility]) PLAN: Discussed ulceration of right medial heel. [...] Pain Jacy Sunshine LPN documented in this encounterMercy Hospital01-04-2023 History of Present illness Narrative* Juan [...] - Follow Up, Ulcer documented in this encounterMercy Hospital01-04-2023 Instructions* Patient Instructions* Juan Carlos Viveros - 03/05/2022 1:20 PM EST Continue with santyl to right heel Continue with open heel shoe Offload heel while in bed Consider debridement of heel ulcer once cleared by vascular surgery. documented in this encounterMercy Hospital01-03-2023 History of Present illness Narrative* Tyrell Vigil DO - 03/04/2022 2:29 PM EST This office note has been dictated. Tyrell Vigil DO documented in this encounterMercy Hospital12-20-2022 History of Present illness Narrative* Juan [...] feels sharp like nails. documented in this encounterMercy Hospital12-20-2022 History of Present illness Narrative* Kelsea Miller RT(Mikhail) - 02/18/2022 3:00 PM EST Radiology Service [...] 18, 2022 2:58 PM documented in this encounterMercy Hospital12-20-2022 Instructions* Patient Instructions* Juan Carlos Viveros - 02/18/2022 2:40 PM EST Continue with santyl to heel ulceration Continue with post-op shoe or open heel shoe to avoid pressure Continue to float heels while in bed to avoid pressure to heel Await vascular recommendations. Per vascular conversion, to avoid debridement until perfusion is restored Juan Carlos Viveros DPM documented in this encounterMercy Hospital12-06-2022 History of Present illness Narrative* Juan [...] Juan Carlos Viveros DPM documented in this encounterMercy Hospital12-06-2022 Instructions* Patient Instructions* Juan Carlos Viveros - 02/04/2022 1:53 PM EST Apply santyl to right heel ulcerations once daily If you notice any moisture developing, resume betadine Continue with post-op shoe and protecting heels while in bed Call if any issues arise documented in this encounterMercy Hospital11-29-2022 History of Present illness Narrative* Kelsea [...] 28, 2022 4:01 PM documented in this encounterMercy Hospital11-29-2022 Instructions* Patient Instructions* Juan Carlos Viveros - 01/28/2022 3:12 PM EST Recommend betadine applied to right heel inside and outside applied daily Use surgical shoe to eliminate rubbing Would also recommend offloading heels while in bed to eliminate pressure. Place pillow under leg tooffload heel documented in this encounterMercy Hospital11-29-2022 History of Present illness Narrative* Juan [...] (L89.610) Pressure injury of right heel, unstageable ([facility]) (I73.9) Peripheral arterial disease ([facility]) PLAN: On exam, patient has two stable [...] JASON Sexton DPM Podiatry [address] [facility] [address] Dept: [phone] Dept * Selena Merlos RN - 01/28/2022 2:38 PM EST Patient presents with: Right Heel - New Patient, Ulcer documented in this encounterMercy Hospital11-22-2022 History of Present illness Narrative* Tyrell Vigil DO - 01/21/2022 10:52 AM EST This office note has been dictated. Tyrell Vigil DO documented in this encounterMercy Hospital10-17-2022 History of Present illness Narrative* Mei Cummins MD - 12/16/2021 3:00 PM EDT Chief Complaint Patient presents with: F/U 3 Month HPI Oswaldo Corley is a 81 year old male who presents here today for a 3 month follow up. Pt here today for a 3 month follow up, with his . Went to [place] 12/06 - 12/10 to visit family; picked [...] appt in December. States he went to [facility] ED yesterday due to increased [...] 11/15/2021 5.0 Abs Lymph 11/15/2021 0.46 (A) Weld% 11/15/2021 3.9 Abs Weld 11/15/2021 0.36 Eosin% 11/15/2021 0.4 Abs Eosin [...] BP <140/90 4. 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 Vickie Carrillo Ma documented in this encounterMercy Hospital09-26-2022 Instructions* Patient Instructions* Bela Manzano MD - 11/25/2021 1:32 PM EDT Repeat fasting blood work documented in this encounterMercy Hospital09-26-2022 History of Present illness Narrative* Bela Manzano MD - 11/25/2021 1:20 PM EDT Images from the original note were not included. [facility] SE[facility]AL CARDIOLOGY Cardiology ([address]) [address] [facility] [id number] OUTPATIENT VISIT DATE 11/25/2021 PRIMARY CARE PHYSICIAN: Mei Cummins [address] [place] [address] HISTORY OF PRESENT ILLNESS: Mr. Corley is [...] OM2. The OM2 fills competitively from the [place] LCX and the SVG. RCA: Dominant vessel [...] AND RECOMMENDATIONS: 1. Coronary artery 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 [place] heart without angina pectoris- ICD9: 414.01, ICD10: [...] I71.4 Bela Manzano MD documented in this encounterMercy Hospital09-20-2022 Miscellaneous Notes* Telephone Encounter - Mei Cummins MD - 11/19/2021 2:13 PM EDT OK to refill as ordered Mei Cummins MD * Telephone Encounter - Malu Tavares Ma - 11/19/2021 1:54 PM EDT Last office visit: 09/04/21 F/u scheduled: 12/16/21 Last refilled on: Ativan #90 with 2 refills on 07/22/21 Malu Tavares Ma documented in this encounterMercy Hospital09-20-2022 History of Present illness Narrative* Salazar [...] developed a pneumothorax. He was transferred to [facility]. PET scan 02/17/2020 done at [facility] demonstrated a 1.2 cm spiculated nodule in [...] care. Salazar Meraz DO documented in this encounterMercy Hospital09-16-2022 History of Present illness Narrative* Summer Clark RT(R) - 11/15/2021 11:20 AM EDT Radiology Service [...] 2021 TIME: 11:52 AM documented in this encounterMercy Hospital09-14-2022 Miscellaneous Notes* Telephone Encounter - Salazar Merza DO - 11/13/2021 4:00 PM EDT Orders filed. Salazar Meraz DO * Telephone Encounter - Radha Pearson LPN - 11/13/2021 2:37 PM EDT Please file orders. Radha Pearson LPN * Telephone Encounter - MARK Vick - 11/13/2021 2:00 PM EDT When placing orders for pt please make this order (creatinine ,bmp or cmp) stats stat please , pt'sappt Is on 11/15/21 , for CT @ 11:20am documented in this encounterMercy Hospital07-06-2022 History of Present illness Narrative* Mei [...] helps keep him stable. Follows with Palliative Care, Karla every 2-3 months. HTN - Will check [...] with Oncology 5. Coronary artery 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 [place] heart without angina pectoris- ICD9: 414.01, ICD10: I25.10 Follow with Cardiology Follow up in 3 months Medical Decision Making: Problems: Moderate: 2+ stable chronic illnesses Risk: Moderate: Drug management Medical Decision Making Level: 4 - Moderate Mei Cummins MD documented in this encounterMercy Hospital07-06-2022 Miscellaneous Notes* Telephone Encounter - Rosalie Latif LPN - 09/04/2021 10:43 AM EDT Clearance form received from [facility], [facility]. Form placed in Dr. Manzano's door box. Rosalie Latif LPN documented in this encounterMercy Hospital06-22-2022 Miscellaneous Notes* Telephone Encounter - Jamshid Brown APRN.CNP - 08/21/2021 9:22 AM EDT The following [...] you. Felicity Eastman LPN documented in this encounterMercy Hospital05-23-2022 Miscellaneous Notes* Telephone Encounter - Malu [...] advise. Erica Hunt LPN documented in this encounterMercy Hospital05-20-2022 History of Present illness Narrative* Salazar Meraz DO - 07/19/2021 10:37 AM EDT [...] developed a pneumothorax. He was transferred to [facility]. PET scan 02/17/2020 done at [facility] demonstrated a 1.2 cm spiculated nodule in [...] necessary. Salazar Meraz DO documented in this encounterMercy Hospital05-16-2022 History of Present illness Narrative* RT [...] 2021 TIME: 1:33 PM documented in this encounterMercy Hospital04-05-2022 History of Present illness Narrative* Mei [...] medication regimen. 4. Coronary artery 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 [place] heart without angina pectoris- ICD9: 414.01, ICD10: [...] Past Histories independently gathered by the clinical sales support assistant and the remaining scribed note accurately describes my personal service to the patient. Medical Decision Making: Problems: Moderate: 2+ stable chronic illnesses Risk: Moderate: Drug management Medical Decision Making Level: 4 - Moderate Mei Cummins MD The documentation for this note was completed by Vickie Carrillo Ma acting as scribe for Mei Cummins MD. June 04, 2021 3:59 PM. Vickie Carrillo Ma documented in this encounterMercy Hospital03-29-2022 Miscellaneous Notes* Telephone Encounter - Alethea Flores - 05/28/2021 3:37 PM EDT relayed message [...] advise. Donna Bell LPN documented in this encounterMercy Hospital09-09-2021 Miscellaneous Notes* Telephone Encounter - Rosalinda Stapleton - 11/08/2020 8:24 AM EDT Lm or pt to call back for information. Rosalinda Stapelton * Telephone Encounter - Salazar Meraz DO - 11/08/2020 6:26 AM EDT Can let him know the CT shows some improvement in the post-operative changes with no obvious sign of cancer recurrence. Will update him once PET completed. Salazar Meraz DO documented in this encounterMercy Hospital08-05-2021 History of Present illness Narrative* Catrachita [...] 04, 2020 12:19 PM documented in this encounterMercy Hospital02-06-2021 NoteDischarge Summary Oswaldo Corley : 1940 [...] oxygen, presented to the emergency room from [facility] for shortness of breath. Patient underwent flexible [...] CT chest CONSULTANTS: CTS, pulmonary DISCHARGE MEDICATIONS: BarneyOswaldo Bruno Home Medication Instructions SHEELA:[id number] Printed on:04/07/20 1300 Medication Information albuterol sulfate [...] Complexity: follow up within 7-14 calendar days (89633) [] Severe Complexity: follow up within 7 calendar days (75105) FOLLOW UP TESTING, PENDING RESULTS OR REFERRALS AT TRANSITIONAL CARE VISIT: [] Yes [] No PENDING STUDIES: No DISPOSITION: Home FACILITY/HOME CARE AGENCY NAME: Follow up with Mei Cummins [address] [facility] [id number] Schedule an appointment as soon as possible for a visit Dano Wells MD [address] [place] [phone] on INSTRUCTIONS TO MA/SW: Please call patient on day after discharge (must document patient contacted within 2 business days of discharge). FOLLOW UP QUESTIONS FOR MA/SW: 1. Did you get medications filled and taking them as instructed from discharge? 2. Are you foll (more content not included)...[facility]01-02-2021 Note Discharge Summary Oswaldo Corley : 1940 [...] DISCHARGE MEDICATIONS: Oswaldo Corley Home Medication Instructions SHEELA:[id number] Printed on:03/02/20 0816 Medication Information albuterol (PROVENTIL) [...] the office will call the patient to schedule.[facility]09-21-2017 History of Past illness Narrative* Problem Noted Date Resolved Date 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 09/05/2019 documented as of this encounter (statuses as of 05/28/2021) [facility] Narrative* Problem Noted Date Resolved Date 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 09/05/2019 documented as of this encounter (statuses as of 06/05/2021) [facility] Narrative* Problem Noted Date Resolved Date 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 09/05/2019 documented as of this encounter (statuses as of 07/13/2021) [address]2017 History of Past illness Narrative* Problem Noted Date Resolved Date 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 09/05/2019 documented as of this encounter (statuses as of 07/16/2021) [address]21-2017 History of Past illness Narrative* Problem Noted Date Resolved Date 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 09/05/2019 documented as of this encounter (statuses as of 07/19/2021) [address]21[address]2017 History of Past illness Narrative* Problem Noted Date Resolved Date 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 09/05/2019 documented as of this encounter (statuses as of 07/22/2021) [address]21-2017 History of Past illness Narrative* Problem Noted Date Resolved Date 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 09/05/2019 documented as of this encounter (statuses as of 08/21/2021) [address]21[address]2017 History of Past illness Narrative* Problem Noted Date Resolved Date 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 09/05/2019 documented as of this encounter (statuses as of 09/04/2021) [address]21[address]2017 History of Past illness Narrative* Problem Noted Date Resolved Date 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 09/05/2019 documented as of this encounter (statuses as of 09/04/2021) [address]21[address]2017 History of Past illness Narrative* Problem Noted Date Resolved Date 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 09/05/2019 documented as of this encounter (statuses as of 10/13/2021) [address]21[address]2017 History of Past illness Narrative* Problem Noted Date Resolved Date 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 09/05/2019 documented as of this encounter (statuses as of 11/13/2021) [address]2017 History of Past illness Narrative* Problem Noted Date Resolved Date 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 09/05/2019 documented as of this encounter (statuses as of 11/17/2021) [address]21[address]2017 History of Past illness Narrative* Problem Noted Date Resolved Date 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 09/05/2019 documented as of this encounter (statuses as of 11/19/2021) [address]2017 History of Past illness Narrative* Problem Noted Date Resolved Date 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 09/05/2019 documented as of this encounter (statuses as of 11/21/2021) [address]21[address]2017 History of Past illness Narrative* Problem Noted Date Resolved Date 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 09/05/2019 documented as of this encounter (statuses as of 11/25/2021) [address]21[address]2017 History of Past illness Narrative* Problem Noted Date Resolved Date 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 09/05/2019 documented as of this encounter (statuses as of 12/16/2021) [address]2017 History of Past illness Narrative* Problem Noted Date Resolved Date 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 09/05/2019 documented as of this encounter (statuses as of 01/24/2022) [address]21-2017 History of Past illness Narrative* Problem Noted Date Resolved Date 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 09/05/2019 documented as of this encounter (statuses as of 01/29/2022) [address]21[address]2017 History of Past illness Narrative* Problem Noted Date Resolved Date 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 09/05/2019 documented as of this encounter (statuses as of 02/04/2022) [address]21[address]2017 History of Past illness Narrative* Problem Noted Date Resolved Date 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 09/05/2019 documented as of this encounter (statuses as of 02/14/2022) [address]21[address]2017 History of Past illness Narrative* Problem Noted Date Resolved Date 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 09/05/2019 documented as of this encounter (statuses as of 02/19/2022) [address]21[address]2017 History of Past illness Narrative* Problem Noted Date Resolved Date 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 09/05/2019 documented as of this encounter (statuses as of 02/21/2022) [address]21[address]2017 History of Past illness Narrative* Problem Noted Date Resolved Date 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 09/05/2019 documented as of this encounter (statuses as of 03/06/2022) [address]21-2017 History of Past illness Narrative* Problem Noted Date Resolved Date 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 09/05/2019 documented as of this encounter (statuses as of 03/07/2022) [address]21[address]2017 History of Past illness Narrative* Problem Noted Date Resolved Date 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 09/05/2019 documented as of this encounter (statuses as of 03/14/2022) [address]21[address]2017 History of Past illness Narrative* Problem Noted Date Resolved Date 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 09/05/2019 documented as of this encounter (statuses as of 03/19/2022) [address]21[address]2017 History of Past illness Narrative* Problem Noted Date Resolved Date 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 09/05/2019 documented as of this encounter (statuses as of 03/28/2022) [address]21[address]2017 History of Past illness Narrative* Problem Noted Date Resolved Date 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 09/05/2019 documented as of this encounter (statuses as of 04/01/2022) [address]21[address]2017 History of Past illness Narrative* Problem Noted Date Resolved Date 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 09/05/2019 documented as of this encounter (statuses as of 04/16/2022) [address]21[address]2017 History of Past illness Narrative* Problem Noted Date Resolved Date 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 09/05/2019 documented as of this encounter (statuses as of 04/17/2022) [address]21[address]2017 History of Past illness Narrative* Problem Noted Date Resolved Date 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 09/05/2019 documented as of this encounter (statuses as of 04/24/2022) [address]21[address]2017 History of Past illness Narrative* Problem Noted Date Resolved Date 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 09/05/2019 documented as of this encounter (statuses as of 04/25/2022) [address]21[address]2017 History of Past illness Narrative* Problem Noted Date Resolved Date 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 09/05/2019 documented as of this encounter (statuses as of 04/30/2022) [address]21[address]2017 History of Past illness Narrative* Problem Noted Date Resolved Date 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 09/05/2019 documented as of this encounter (statuses as of 05/01/2022) [address]21[address]2017 History of Past illness Narrative* Problem Noted Date Resolved Date 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 09/05/2019 documented as of this encounter (statuses as of 05/12/2022) [address]21[address]2017 History of Past illness Narrative* Problem Noted Date Resolved Date 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 09/05/2019 documented as of this encounter (statuses as of 05/20/2022) [address]21[address]2017 History of Past illness Narrative* Problem Noted Date Resolved Date 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 09/05/2019 documented as of this encounter (statuses as of 05/21/2022) [address]21[address]2017 History of Past illness Narrative* Problem Noted Date Resolved Date 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 09/05/2019 documented as of this encounter (statuses as of 05/27/2022) [address]21[address]2017 History of Past illness Narrative* Problem Noted Date Resolved Date 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 09/05/2019 documented as of this encounter (statuses as of 05/28/2022) [address]21[address]2017 History of Past illness Narrative* Problem Noted Date Resolved Date 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 09/05/2019 documented as of this encounter (statuses as of 06/12/2022) [address]21[address]2017 History of Past illness Narrative* Problem Noted Date Resolved Date 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 09/05/2019 documented as of this encounter (statuses as of 06/19/2022) [address]21[address]2017 History of Past illness Narrative* Problem Noted Date Resolved Date 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 09/05/2019 documented as of this encounter (statuses as of 06/19/2022) [address]2017 History of Past illness Narrative* Problem Noted Date Resolved Date 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 09/05/2019 documented as of this encounter (statuses as of 06/20/2022) [address] [address] History of Past illness Narrative* Problem Noted Date Resolved Date 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 09/05/2019 documented as of this encounter (statuses as of 06/25/2022) [address] History of Past illness Narrative* Problem Noted Date Resolved Date 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 09/05/2019 documented as of this encounter (statuses as of 06/26/2022) [address] History of Past illness Narrative* Problem Noted Date Resolved Date 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 09/05/2019 documented as of this encounter (statuses as of 07/07/2022) [address] History of Past illness Narrative* Problem Noted Date Resolved Date 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 09/05/2019 documented as of this encounter (statuses as of 07/07/2022) [address] History of Past illness Narrative* Problem Noted Date Resolved Date 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 09/05/2019 documented as of this encounter (statuses as of 07/09/2022) [address] History of Past illness Narrative* Problem Noted Date Resolved Date 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 09/05/2019 documented as of this encounter (statuses as of 07/29/2022) [address] History of Past illness Narrative* Problem Noted Date Resolved Date 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 09/05/2019 documented as of this encounter (statuses as of 07/31/2022) [address] History of Past illness Narrative* Problem Noted Date Resolved Date 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 09/05/2019 documented as of this encounter (statuses as of 08/14/2022) [address] History of Past illness Narrative* Problem Noted Date Resolved Date 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 09/05/2019 documented as of this encounter (statuses as of 08/20/2022) [address] History of Past illness Narrative* Problem Noted Date Resolved Date 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 09/05/2019 documented as of this encounter (statuses as of 08/28/2022) [address] History of Past illness Narrative* Problem Noted Date Resolved Date 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 09/05/2019 documented as of this encounter (statuses as of 09/04/2022) [address] History of Past illness Narrative* Problem Noted Date Diagnosed Date Resolved Date ASCVD (arteriosclerotic card iovascular disease) 11/20/2016 09/05/2019 documented as of this encounter (statuses as of 09/29/2022) [address] History of Past illness Narrative* Problem Noted Date Diagnosed Date Resolved Date ASCVD (arteriosclerotic card iovascular disease) 11/20/2016 09/05/2019 documented as of this encounter (statuses as of 09/30/2022) [address] History of Past illness Narrative* Problem Noted Date Diagnosed Date Resolved Date ASCVD (arteriosclerotic card iovascular disease) 11/20/2016 09/05/2019 documented as of this encounter (statuses as of 01/04/2023) [facility] History of Past illness Narrative* Problem Noted Date Diagnosed Date Resolved Date ASCVD (arteriosclerotic card iovascular disease) 11/20/2016 09/05/2019 documented as of this encounter (statuses as of 01/04/2023) [facility] History of Past illness Narrative* Problem Noted Date Diagnosed Date Resolved Date ASCVD (arteriosclerotic card iovascular disease) 11/20/2016 09/05/2019 documented as of this encounter (statuses as of 01/04/2023) [facility] Malu [facility] Note Date/Time May 24, 2024 2:2 7pm [facility] Medical Records Department [address] [place] [address] Discharge Summary 05/24/24 1405 MR#: [id number] Acct: [id number] Name: OSWALDO CORLEY Rep #:[id number] : 1940 83 From: Malu Steen DO PCP: Dr. Mei Cummins MD Status:AD M IN Location: [place] [id number]- [id number] Providers Date of Admission: 05/22/24 Date [...] exertion and presented to emergency department at [facility] on 05/22/2024 with worsening of breath. [...] Self Care Charges/Coding Visit Charges Inpatient E&M: 15203 Disch Hosp >30min 05/24/24 1427 <Electronically signed by Malu Steen DO> Cosigner Signature (if applicable): CC: Dr. Malu Steen DO; Dr. Mei Cummins MD~ Signed [facility] Work Phone: Discharge summary Author Aaron Hurst [facility] Note Date/Time September 17, 2024 12:4 7pm [facility] Medical Records Department [address] [place] [address] Emergency Department Summary 09/17/24 MR#: [id number] Acct: [id number] Name: OSWALDO CORLEY Rep #:[id number] : 1940 84 From: Aaron Hurst MD PCP: Dr. Mei Cummins MD Status:RE G ER Location: ED HPI HPI - GI History of Present Illness Chief Complaint: GI Bleed Informant: patient and spouse/S.O. Nausea/Vomiting/Emesis GI Symptom: Negative for Nausea or Vomiting Diarrhea/Melena/Hematochezia GI Symptom: Positive for Hematochezia; Negative for Diarrhea or Melena Onset: Days Severity: Mild Associated Symptoms Associated Symptoms: Negative for Dysuria, Frequency or Hematuria Narrative Narrative: 52-year-old male history of COPD, CAD, prostate cancer, anemia, prior pulmonary emboli for which he is on blood thinner Eliquis. States since Thursday he is in intermittent rectal bleeding. He initially was constipated he has been straining to have bowel movements. Also states he has had some hemoptysis with no chest pain. No shortness of breath. No fever. Of note the patient did havea GI bleed last September and was admitted to the hospital. Had upper and lower endoscopy done at that time. Prior similar symptoms: Yes Recent Illness/Hospitalization: No PFSH PFSH Medical History Chronic respiratory failure with hypoxia [...] PO DAILY cholesterol 0 09/28/23 06/02/24 History albuterol sulfate 90 mcg/actuation 2 puff inhalation Q 4H PRN wheezing 02/19/24 Unknown History aerosol inhaler aspirin 81 mg tablet,delayed 81 mg PO DAILY heart 01/3106/02/24 History release (Enteric Coated Aspirin) oxycodone 5 mg tablet 5 mg PO Q4H PRN chronic pain 02/21/24 06/03/24 History ondansetron 4 mg disintegrating 4 mg PO DAILY PRN naus ea and 03/30/24 05/29/24 History tablet vomiting roflumilast 500 mcg tablet 500 mcg PO DAILY 03/30/24 0 06/03/24 History collagenase clostridium histo. 250 1 applic topical DA SHELIA 05/22/24 05/21/24 History unit/gram topical ointment (Santyl) guaifenesin 600 mg tablet, 1,200 mg PO BID PRN cough 0 05/22/24 06/03/24 History extended release 12 hr (Mucinex) metoprolol tartrate 50 mg tablet 50 mg PO BID #60 tabs 05/24/24 06/03/24 Rx furosemide 20 mg tablet (Lasix) 20 mg PO DAILY PRN chris ght gain 30 06/05/24 05/21/24 Rx days #0 tabs lorazepam 1 mg tablet 1 mg PO TID PRN anxiety 30 d ays #0 06/05/24 06/02/24 Rx tabs sulfamethoxazole 800 1 tab PO BID 2 weeks #28 tab s 06/15/24 Unknown Rx mg-trimethoprim 160 mg tablet (Bactrim DS) Allergy/AdvReac Type Severity Reaction Status Date / Time isosorbide (From Imdur) Allergy Other-patient Verified 09/17/24 10:53 blacks out Family History Mother Cancer Father Heart disease COPD (chronic obstructive pulmonary disease) Surgical History Hx of pneumonectomy Hx of CABG Hx of CABG Hx of heart artery stent Hx of transurethral resection of prostate Social History household members: spouse Smoking Status: Former smoker Tobacco: How many years used: 45 Electronic Cigarette Use: not used how long ago did patient quit smokin, second hand exposure: Yes alcohol intake: never substance use type: does not use ROS ROS ED ROS Narrative Rectal bleeding. Bright red blood. Intermittent hemoptysis. No chest pain. No shortness of breath. No abdominal pain. Constitutional Constitutional ED: Denies chills or fever(s) ENT ENT ED: Denies ear pain Respiratory/Chest Respiratory/Chest: Denies cough or dyspnea Gastrointestinal Gastrointestinal: Denies abdominal pain, constipation, diarrhea, nausea or vomiting Genitourinary Genitourinary ED: Denies dysuria or hematuria Musculoskeletal Musculoskeletal: Denies arthralgias Integumentary Denies abscess Neurologic Neurologic: Denies headache(s) Psychiatric Psychiatric: Denies anxiety Endocrine Endocrinology: Denies polydipsia Hematologic/Lymphatic Hematologic/Lymphatic: Denies easy bleeding Allergic/Immunologic Allergic/Immunologic ED: Denies mouth swelling, tongue swelling or urticaria EXAM Physical Exam Narrative Exam Narrative: Well-appearing 84-year-old male. Vital signs stable afebrile. Does not look septic toxic. No distress. at bedside. H EENT exam pupils are react to light. Moist mucous members. Neck nontender no JVD. Lungs clear to auscultation bilaterally. Heart regular rhythm rate about 70 no murmur. Chest wall and ribs nontender. Abdomen soft nontender. Rectal exam done brown stool. No gross blood. No black stool. There is 1 external hemorrhoid it is not tender it is not thrombosed. Is not actively bleeding. Moving all 4 extremities. Nontender no edema. Neurologically is awake and alert. Answeringquestions following commands. Const Vital Signs: 09/17/24 10:50 Temperature 98.6 F Temperature Source Oral Pulse Rate 72 Respiratory Rate 18 Blood Pressure 109/68 Blood Pressure Mean 81 Pulse Ox 96 Positive well nourished and well developed; Negative for obese, cachectic or contractures General Appearance ED: well developed and NAD; Negative for cachectic, contractures or pallor Nutritional Appearance: Negative for cachectic or obese HEENT Reports moist mucous membranes normocephalic and atraumatic Eyes PERRL and EOMs intact bilaterally General Eye ED: Negative for pale conjunctiva or scleral icterus Neck no lymphadenopathy, supple and no JVD Resp normal respiratory effort and clear to auscultation bilaterally Cardio regular rate, regular rhythm, S1 normal heart sound, S2 normal heart sound and no murmurs GI non-tender, non-distended and no masses Palpation: soft; Negative for tender, guarding, pulsatile mass or rebound tenderness present Back/Spine no CVA tenderness General Back: Negative for CVA tenderness Cervical Spine: Negative for cervical spine tenderness Thoracic Spine / Upper Back: Negative for thoracic spinal tenderness Lumbar Spine / Lower Back: Negative for lumbar spinal tenderness Extremity full ROM General Extremety ED: Negative for edema or tenderness General Extremity: Negative for edema Neuro CN's II-XII intact bilaterally and moves all extremities Sensorium / Orientation: alert, oriented to person, oriented to place and oriented to time Motor Exam: strength 5/5 throughout Psych mental status grossly normal and thought process normal Skin no wounds General Skin Exam: Negative for jaundice or pallor Lesions: no lesions Rashes: no rashes MDM MDM MDM Narrative Medical decision making narrative: 84-year-old male on Eliquis due to prior pulmonary emboli with hemoptysis and rectal bleeding. Had significant GI bleed a year ago. Repeat exam patient is doing well at 12:35 PM. Has had no further bloody bowel movement since he has been here. I discussed with him and his all his labs. They are comfortable with prefer to be discharged to home versus admission. He was seen and scoped by Dr. Moreno follow-up last year. He will follow-up with their office and/or get another blood count to his primary care physician's office. They know that if he has worsening bleeding to return. He will continue his current medications. History & Record Review Discussion w/independent historian: Patient and Family Additional record(s) reviewed:: Prior inpatient record, Prior outpatient record,Prior ED visit and Prior labs Lab Data Attestation: I reviewed the patient's lab results. Lab results narrative: CBC shows a white count of 7 H&H 9.8 and 32.2. Platelets 182. Electrolytes show sodium 139. Gap 12. Normal BUN 19 creatinine 0.7. Glucose 114. Blood type negative. Labs: Laboratory Results - last 24 hr 09/17/24 11:08 WBC 7.4 RBC 3.63 L Hgb 9.8 L Hct 32.2 L MCV 88.7 MCH 27.0 MCHC 30.4 L RDW Std Deviation 53.1 H RDW Coeff of Estelita 16.3 H Plt Count 182 MPV 8.7 Sodium 139 Potassium 4.1 Chloride 105 Carbon Dioxide 22.4 Anion Gap 12 BUN 19 Creatinine 0.70 Estim Creat Clear Calc 73.61 Est GFR (MDRD) Non-Af 92 BUN/Creatinine Ratio 26.9 H Glucose 114 H Calcium 8.7 Blood Type O NEGATIVE Antibody Screen NEGATIVE Radiography Diagnostic Testing: Clinical Impression(s) from Imaging Studies Chest X-Ray 09/17/24 11:35 IMPRESSION: A subtle airspace disease process is identified in the right mid lung field region and the left upper lobe. These may represent pneumonic infiltrates in the right clinical setting. Follow-up imaging is recommended to follow these processes if patient's symptoms continue or worsen. Bilateral parenchymal scarring is noted. Chronic left pleural effusion versus pleural parenchymal scarring. Reading Location: [facility] Discharge Plan Triage Chief Complaint: GI Bleed ED Provider: Aaron Hurst Dx/Rx/DC Orders Clinical Impression: GI (gastrointestinal bleed), History of GI bleed, Chronic anticoagulation, History of pulmonary embolism, Chronic anemia, History of COPD Instructions: ED Lower GI Bleeding (Stable) Prescriptions: No Action fluticasone propion-salmeterol [Advair HFA] 230-21 mcg/actuation HFA [...] RIGHT NOW BECAUSE IT MAKES HIM DIZZY. sulfamethoxazole-trimethoprim [Bactrim DS] 800-160 mg tablet 1 tab PO BID 14 Days Qty: 28 0RF furosemide [Lasix] 20 mg tablet 20 mg PO DAILY PRN (Reason: weight gain) 30 Days Qty: 0 0RF Patient Comments: PT ONLY TAKES NEEDED; HASNT TAKEN IN 10 DAYS lorazepam 1 mg tablet 1 mg PO TID PRN (Reason: anxiety) 30 Days Qty: 0 0RF Patient Comments: PT TAKES NEEDED Primary Care Provider: Mei Cummins Referrals: Mei Cummins MD [Primary Care Provider] - As soon as possible (Follow-up with your doctor to have your blood count rechecked to make sure it is not dropping.) FriendGarcia DO [Med Staff - Active Staff] - As soon as possible Activity Restrictions/Additional Instructions: Follow-up with your primary care physician to have your blood count rechecked. Follow-up with Dr. Moreno the GI doctor for possible colonoscopy. If you are having heavier or heavier bleeding passing clots feeling worse returnyou may have some mild bleeding that you can just follow-up with your primary care physician and the GI doctor for. Print Language: Nicaraguan Disposition Disposition: Home, Self Care What to do if you have Problems For any increased pain, shortness of breath, bleeding, nausea or vomiting, chestpain, or any unexpected problems, contact your Primary Care Provider. Call [facility] ([phone]) or report to the closest Emergency Room. Call 911 if necessary. 09/17/24 1247 <Electronically signed by Aaron Hurst MD> Cosigner Signature (if applicable): CC: Dr. Mei Cummins MD ~ Signed 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, left (HCC) Rib pain on left side Chest pain, unspecified [facility] Diagnosis Cancer of trachea, bronchus, and lung (HCC)- Primary Malignant neoplasm of other parts of bronchus or lung [facility]* Diagnosis Malignant neoplasm of unspecified part of unspecified bronchus or lung (HCC) [facility]* Diagnosis Malignant neoplasm of unspecified part of unspecified bronchus or lung (HCC)- Primary Chronic post-thoracotomy pain [facility]* Diagnosis Anxiety Anxiety state, unspecified [facility]* Diagnosis Chronic obstructive pulmonary disease with acute exacerbation (HCC)- Primary Obstructive chronic bronchitis with exacerbation Essential hypertension Unspecified essential hypertension Anxiety Anxiety state, unspecified Squamous carcinoma of lung, 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 pectoris [facility]* Diagnosis Onset Date Resolution Status Squamous cell carcinoma of left lung acute Stage 3 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 chronic Tobacco dependence in remission [facility] Work Phone: Evaluation note* Diagnosis Malignant neoplasm of unspecified part of unspecified bronchus or lung (HCC)- Primary [facility]* Diagnosis Malignant neoplasm of unspecified part of unspecified bronchus or lung (HCC)- Primary documented in this encounter [facility] note* Diagnosis Coronary artery 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 [place] heart without angina pectoris- Primary Essential hypertension Unspecified essential hypertension Hyperlipidemia, mixed Mixed hyperlipidemia Abdominal aortic aneurysm (AAA) without rupture documented in this encounter [facility] noteNo assessment information availableWMercy [facility] Work Phone: Evaluation note* Diagnosis Chronic obstructive pulmonary disease with acute exacerbation (HCC)- Primary Obstructive chronic bronchitis with exacerbation Anxiety Anxiety state, unspecified Essential hypertension Unspecified essential hypertension Coronary artery 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 [place] heart without angina pectoris 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 and other lower urinary tract symptoms (LUTS) Hyperlipidemia, mixed Mixed hyperlipidemia Squamous carcinoma of lung, left (HCC) documented in this encounter [facility] note* Diagnosis Diminished pulses in lower extremity- Primary Other symptoms involving cardiovascular system Screening for nephropathy Pressure injury of right heel, unstageable (HCC) Peripheral arterial disease (HCC) Peripheral vascular disease, unspecified Fissure in skin of foot Other specified disorder of skin [facility] Diagnosis Pressure injury of right heel, unstageable (HCC) Peripheral arterial disease (HCC) Peripheral vascular disease, unspecified Fissure in skin of foot Other specified disorder of skin [facility] Diagnosis 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 Type II or unspecified type diabetes mellitus with other specified manifestations, not stated as uncontrolled Peripheral arterial disease (HCC) Peripheral vascular disease, unspecified [facility] Diagnosis Diminished pulses in lower extremity- Primary Other symptoms involving cardiovascular system [facility]* Diagnosis Peripheral arterial disease (HCC)- Primary Peripheral vascular disease, unspecified 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, with fat layer 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) [facility]* Diagnosis Peripheral arterial disease (HCC)- Primary Peripheral vascular disease, unspecified [facility]* Diagnosis Peripheral arterial disease (HCC)- Primary Peripheral vascular disease, unspecified 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, 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) Type II or unspecified type diabetes mellitus with other specified manifestations, not stated as uncontrolled Pressure injury of right heel, unstageable (HCC) [facility]* Diagnosis PAD (peripheral artery disease) (HCC)- Primary Peripheral vascular disease, unspecified PAD (peripheral artery disease) (HCC) Peripheral vascular disease, unspecified [facility]* Diagnosis Peripheral arterial disease (HCC)- Primary Peripheral vascular disease, unspecified 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, with fat layer 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) PAD (peripheral artery disease) (HCC) Peripheral vascular disease, unspecified [facility]* Diagnosis 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, with fat layer 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)- Primary Peripheral arterial disease (HCC) Peripheral vascular disease, unspecified [facility]* Diagnosis 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, with fat layer 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)- Primary Peripheral arterial disease (HCC) Peripheral vascular disease, unspecified [facility]* Diagnosis Onset Date Resolution Status Squamous cell carcinoma of left lung acute Chronic hypoxemic respiratory failure chronic 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) Atherosclerosis of [place] arteries of the extremities with rest pain 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, with fat layer 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) [facility]* Diagnosis Encounter for preprocedural cardiovascular examination Pre-operative cardiovascular examination 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) Atherosclerosis of [place] arteries of the extremities with rest pain 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, with fat layer 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) documented in this encounter [facility] note* Diagnosis 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, with fat layer 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)- Primary Peripheral arterial disease (HCC) Peripheral vascular disease, unspecified 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) Type II or unspecified type diabetes mellitus with other specified manifestations, not stated as uncontrolled 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) Atherosclerosis of [place] arteries of the extremities with rest pain 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, with fat layer 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) 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) Atherosclerosis of [place] arteries of the extremities with rest pain 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, with fat layer 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) [facility] [facility] Diagnosis Coronary artery 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 [place] heart without angina pectoris- Primary Essential hypertension Unspecified essential hypertension Hyperlipidemia, mixed Mixed hyperlipidemia PAD (peripheral artery disease) (HCC) Peripheral vascular disease, unspecified Abdominal aortic aneurysm (AAA) without rupture, unspecified part (HCC) Pre-operative cardiovascular examination 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) Atherosclerosis of [place] arteries of the extremities with rest pain 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, with fat layer 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) [facility] Diagnosis Peripheral arterial disease (HCC)- Primary Peripheral vascular disease, unspecified [facility] Diagnosis Skin ulcer of right heel with fat layer 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)- Primary [facility] Diagnosis Skin ulcer of right heel with fat layer 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)- Primary [facility]* Diagnosis Skin ulcer of right heel with fat layer 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)- Primary Peripheral arterial disease (HCC) Peripheral vascular disease, unspecified [facility]* Diagnosis Peripheral arterial disease (HCC)- Primary Peripheral vascular disease, unspecified [facility]* Diagnosis Skin ulcer of right heel with fat layer 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)- Primary [facility]* Diagnosis Anxiety- Primary Anxiety state, unspecified Depression, unspecified depression type Hyperlipidemia, mixed Mixed hyperlipidemia Essential hypertension Unspecified essential hypertension Chronic obstructive pulmonary disease with acute exacerbation (HCC) Obstructive chronic bronchitis with exacerbation Coronary artery 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 [place] heart without angina pectoris PAD (peripheral artery disease) (HCC) Peripheral vascular disease, unspecified Squamous carcinoma of lung, 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 Acquired absence of organ, lung Acute and chronic respiratory failure with hypoxia (HCC) Acute and chronic respiratory failure [facility] Diagnosis Skin ulcer of right heel with fat layer 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)- Primary Peripheral arterial disease (HCC) Peripheral vascular disease, unspecified [facility]* Diagnosis Coronary artery 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 [place] heart without angina pectoris- Primary S/P coronary artery stent placement, status post multiple stent placements Postsurgical percutaneous transluminal coronary angioplasty status Pre-operative cardiovascular examination [facility]* Diagnosis Peripheral arterial disease (HCC)- Primary Peripheral vascular disease, unspecified [facility]* Diagnosis Skin ulcer of right heel with fat layer 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)- Primary Peripheral arterial disease (HCC) Peripheral vascular disease, unspecified [facility]* Diagnosis Peripheral arterial disease (HCC)- Primary Peripheral vascular disease, unspecified [facility] Diagnosis Skin ulcer of right heel with fat layer 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)- Primary [facility]* Diagnosis Chronic obstructive pulmonary disease with acute exacerbation (HCC)- Primary Obstructive chronic bronchitis with exacerbation [facility] [facility]* Diagnosis Skin ulcer of right heel with fat layer 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)- Primary Peripheral arterial disease (HCC) Peripheral vascular disease, unspecified [facility] [facility]* Diagnosis Anxiety Anxiety state, unspecified [facility]* Diagnosis Coronary artery 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 [place] heart without angina pectoris- Primary Essential hypertension Unspecified essential hypertension Hyperlipidemia, mixed Mixed hyperlipidemia Peripheral arterial disease (HCC) Peripheral vascular disease, unspecified [facility] [facility]* Diagnosis SOB (shortness of breath) Shortness of breath [facility] [facility]* Diagnosis SOB (shortness of breath) Shortness of breath [facility] [facility]* Diagnosis Stage 3 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 ([facility])- Primary Dependence on continuous supplemental oxygen History of cancer of lower lobe bronchus or lung Personal history of malignant neoplasm of bronchus and lung Bronchiectasis without complication (HCC) Bronchiectasis without acute exacerbation Hydropneumothorax Other specified forms of effusion, except tuberculous [facility] [facility]* Diagnosis Hypoxemia [facility]* Diagnosis Chronic obstructive pulmonary disease, unspecified COPD type (HCC) [facility] [facility]* Diagnosis Posterior tibial tendon dysfunction- Primary Other disorders of synovium, tendon, and bursa [facility] [facility]* Diagnosis Essential hypertension Unspecified essential hypertension [facility] [facility]* Diagnosis Anxiety- Primary Anxiety state, unspecified [...] unspecified single disease [facility] Diagnosis Pressure injury of right heel, unstageable (HCC) Coronary artery 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 [place] heart without angina pectoris- Primary Essential hypertension Unspecified essential hypertension Hyperlipidemia, mixed Mixed hyperlipidemia PAD (peripheral artery disease) (HCC) Peripheral vascular disease, unspecified [facility] [facility]* Diagnosis Malignant neoplasm of unspecified part of unspecified bronchus or lung (HCC) Coronary artery 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 [place] heart without angina pectoris- Primary Essential hypertension Unspecified essential hypertension Hyperlipidemia, mixed Mixed hyperlipidemia PAD (peripheral artery disease) (HCC) Peripheral vascular disease, unspecified [facility] [facility]* Diagnosis Peripheral arterial disease (HCC) Peripheral vascular disease, unspecified 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, with fat layer 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) Coronary artery 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 [place] heart without angina pectoris- Primary Essential hypertension Unspecified essential hypertension Hyperlipidemia, mixed Mixed hyperlipidemia PAD (peripheral artery disease) (HCC) Peripheral vascular disease, unspecified [facility] [facility]* Diagnosis Skin ulcer of right heel with fat layer 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) Peripheral arterial disease (HCC) Peripheral vascular disease, unspecified Coronary artery 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 [place] heart without angina pectoris- Primary Essential hypertension Unspecified essential hypertension Hyperlipidemia, mixed Mixed hyperlipidemia PAD (peripheral artery disease) (HCC) Peripheral vascular disease, unspecified [facility] Skin ulcer of right heel with fat layer 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) Coronary artery 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 [place] heart without angina pectoris- Primary Essential hypertension Unspecified essential hypertension Hyperlipidemia, mixed Mixed hyperlipidemia PAD (peripheral artery disease) (HCC) Peripheral vascular disease, unspecified [facility] Diagnosis 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, with fat layer 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) Coronary artery 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 [place] heart without angina pectoris- Primary Essential hypertension Unspecified essential hypertension Hyperlipidemia, mixed Mixed hyperlipidemia PAD (peripheral artery disease) (HCC) Peripheral vascular disease, unspecified [facility] [facility]* Diagnosis Lung nodule- Primary Solitary pulmonary nodule 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) Chronic hypoxemic respiratory failure (HCC) Chronic respiratory failure H/O: lung cancer Personal history of malignant neoplasm of bronchus and lung Bronchiectasis without complication (HCC) Bronchiectasis without acute exacerbation Hydropneumothorax Other specified forms of effusion, except tuberculous [facility] [facility]* Diagnosis Malignant neoplasm of unspecified part of unspecified bronchus or lung (HCC)- Primary documented in this encounter [facility] note* Diagnosis Onset Date Resolution Status Acidosis, lactic acute History of coronary artery disease acute Major hemoptysis acute Pulmonary cavitary lesion ac [place] Pulmonary embolus acute Pulmonary neoplasm acute Sinus tachycardia by electrocardiogram acute Benign essential HTN chronic COPD with acute exacerbation [facility] Work Phone: Evaluation note* Diagnosis Lung nodule- Primary Other diseases of lung, not elsewhere classified documented in this encounter [facility] note* Diagnosis Lung nodule- Primary Other diseases of lung, not elsewhere classified documented in this encounter [facility] note* Diagnosis Squamous carcinoma of lung, left (HCC)- Primary Chronic pulmonary embolism without acute cor pulmonale, unspecified pulmonary embolism type (HCC) Prostate cancer (HCC) Malignant neoplasm of prostate [facility]* Diagnosis Hospital discharge follow-up- Primary Other [...] bronchus and lung [facility]* Diagnosis 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)- Primary Chronic hypoxemic respiratory failure (HCC) Chronic respiratory failure Other pulmonary embolism without acute cor pulmonale, unspecified chronicity (HCC) History of cancer of lower lobe bronchus or lung Personal history of malignant neoplasm of bronchus and lung Hydropneumothorax Other specified forms of effusion, except tuberculous [facility] [facility]* Diagnosis Squamous carcinoma of lung, left (HCC)- Primary Chronic pulmonary embolism without acute cor pulmonale, unspecified pulmonary embolism type (HCC) [facility] Diagnosis Squamous carcinoma of lung, left (HCC) [facility] Diagnosis Anxiety Anxiety state, unspecified [facility] [facility]* Diagnosis Onset Date Resolution Status Acidosis, lactic acute History of coronary artery disease acute Pulmonary cavitary lesion ac [place] Benign essential HTN chronic COPD with acute exacerbation chronic Major hemoptysis resolved Sinus tachycardia by electrocardiogram resolved [facility] Work Phone: Evaluation note* Diagnosis Coronary artery 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 [place] heart without angina pectoris- Primary Essential hypertension Unspecified essential hypertension Hyperlipidemia, mixed Mixed hyperlipidemia Peripheral arterial disease (HCC) Peripheral vascular disease, unspecified [facility] [facility]* Diagnosis Squamous carcinoma of lung, left (HCC)- Primary Squamous carcinoma of lung, left (HCC) [facility] [facility]* Diagnosis 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, left (HCC) [facility] [place] [facility]* Diagnosis Squamous carcinoma of lung, left (HCC)- Primary [facility] [facility]* Diagnosis Anxiety- Primary Anxiety state, unspecified Moderate recurrent major depression (HCC) Major depressive disorder, recurrent episode, moderate Hyperlipidemia, mixed Mixed hyperlipidemia Essential hypertension Unspecified essential hypertension Coronary artery 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 [place] heart without angina pectoris PAD (peripheral artery disease) (HCC) Peripheral vascular disease, unspecified Chronic obstructive pulmonary disease with acute exacerbation (HCC) Obstructive chronic bronchitis with exacerbation Squamous carcinoma of lung, left (HCC) Prostate cancer (HCC) Malignant neoplasm of prostate [facility] [facility] Diagnosis 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)- Primary [facility] [facility]* Diagnosis Squamous carcinoma of lung, left (HCC)- Primary [facility] Diagnosis Squamous carcinoma of lung, left (HCC) [facility] Diagnosis Peripheral arterial disease (HCC)- Primary Peripheral vascular disease, unspecified Abdominal aortic ectasia (HCC) Abdominal aortic ectasia [facility] [facility]* Diagnosis Malignant neoplasm of unspecified part of unspecified bronchus or lung (HCC)- Primary Squamous carcinoma of lung, left (HCC) Lung nodules Other nonspecific abnormal finding of lung field [facility] [place] [facility]* Diagnosis Anxiety Anxiety state, unspecified documented in this encounter [facility] note* Diagnosis Stage 3 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 ([facility])- Primary Chronic hypoxemic respiratory failure (HCC) Chronic respiratory failure History of cancer of lower lobe bronchus or lung Personal history of malignant neoplasm of bronchus and lung Lung nodule Solitary pulmonary nodule Bronchiectasis without complication (HCC) Bronchiectasis without acute exacerbation [facility] [facility]* Diagnosis Anxiety- Primary Anxiety state, unspecified Moderate recurrent major depression (HCC) Major depressive disorder, recurrent episode, moderate Essential hypertension Unspecified essential hypertension Elevated glucose Other abnormal glucose Hyperlipidemia, mixed Mixed hyperlipidemia Coronary artery 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 [place] heart without angina pectoris PAD (peripheral artery disease) (HCC) Peripheral vascular disease, unspecified Chronic obstructive pulmonary disease, unspecified COPD type ([facility]) [facility] [facility]* Diagnosis Coronary artery 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 [place] heart without angina pectoris Hyperlipidemia, mixed Mixed hyperlipidemia documented in this encounter [facility] note* Diagnosis Chronic pulmonary embolism without acute cor pulmonale, unspecified pulmonary embolism type (HCC)- Primary [facility] [facility]* Diagnosis Pre-operative examination- Primary Preoperative examination, unspecified Elevated glucose level Squamous carcinoma of lung, 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 pectoris Abdominal aortic aneurysm [...] Anxiety state, unspecified 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, left (HCC) Acute and chronic respiratory failure with hypoxia (HCC) Acute and chronic respiratory failure Moderate recurrent major depression (HCC) Major depressive disorder, recurrent episode, moderate Hospital discharge follow-up Other follow-up examination documented in this encounter [facility] note* Diagnosis Pre-operative examination- Primary Preoperative examination, unspecified Elevated glucose level Squamous carcinoma of lung, 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 pectoris Abdominal aortic aneurysm [...] left (HCC)- Primary documented in this encounter [facility] note* Diagnosis Pre-operative examination- Primary Preoperative examination, unspecified Elevated glucose level Squamous carcinoma of lung, 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 pectoris Abdominal aortic aneurysm [...] of lung field documented in this encounter [facility] note* Diagnosis Pre-operative examination- Primary Preoperative examination, unspecified Elevated glucose level Squamous carcinoma of lung, 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 pectoris Abdominal aortic aneurysm [...] leg, except foot [facility]* Diagnosis Pre-operative examination- Primary Preoperative examination, unspecified Elevated glucose level Squamous carcinoma of lung, 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 pectoris Abdominal aortic aneurysm [...] left (HCC)- Primary documented in this encounter [facility] note* Diagnosis Pre-operative examination- Primary Preoperative examination, unspecified Elevated glucose level Squamous carcinoma of lung, 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 pectoris Abdominal aortic aneurysm [...] of skin (HCC) [facility] [facility]* Diagnosis Pre-operative examination- Primary Preoperative examination, unspecified Elevated glucose level Squamous carcinoma of lung, 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 pectoris Abdominal aortic aneurysm [...] history of tobacco use, presenting hazards to [facility] Skin ulcer, limited to breakdown of skin (HCC)- Primary Peripheral arterial disease (HCC) Peripheral vascular disease, unspecified [facility] [facility]* Diagnosis Pre-operative examination- Primary Preoperative examination, unspecified Elevated glucose level Squamous carcinoma of lung, 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 pectoris Abdominal aortic aneurysm [...] history of tobacco use, presenting hazards to [facility] Stage 3 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 ([facility])- Primary Chronic hypoxemic respiratory failure (HCC) Chronic respiratory failure documented in this encounter [facility] note* Diagnosis Rib pain on left side Chest pain, unspecified Pre-operative examination- Primary Preoperative examination, unspecified Elevated glucose level Squamous carcinoma of lung, 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 pectoris Abdominal aortic aneurysm [...] hazards to health documented in this encounter [facility] note* Diagnosis Pre-operative examination- Primary Preoperative examination, unspecified Elevated glucose level Squamous carcinoma of lung, 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 pectoris Abdominal aortic aneurysm [...] vascular disease, unspecified documented in this encounter [facility] note* Diagnosis Pre-operative examination- Primary Preoperative examination, unspecified Elevated glucose level Squamous carcinoma of lung, 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 pectoris Abdominal aortic aneurysm [...] bronchus and lung documented in this encounter [facility] note* Diagnosis Pre-operative examination- Primary Preoperative examination, unspecified Elevated glucose level Squamous carcinoma of lung, 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 pectoris Abdominal aortic aneurysm [...] hazards to health Coronary artery 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 [place] heart without angina pectoris- Primary Essential hypertension Unspecified essential hypertension Hyperlipidemia, mixed Mixed hyperlipidemia PAD (peripheral artery disease) (HCC) Peripheral vascular disease, unspecified documented in this encounter [facility] note* Diagnosis Pre-operative examination- Primary Preoperative examination, unspecified Elevated glucose level Squamous carcinoma of lung, 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 pectoris Abdominal aortic aneurysm [...] Unspecified essential hypertension Coronary artery 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 [place] heart without angina pectoris Hyperlipidemia, 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) Major depressive disorder, recurrent episode, moderate Anxiety Anxiety state, unspecified Prostate cancer (HCC) Malignant neoplasm of prostate Elevated glucose Other abnormal glucose Encounter for immunization Need for other specified prophylactic vaccination against single bacterial disease documented in this encounter [facility] note* Diagnosis Pre-operative examination- Primary Preoperative examination, unspecified Elevated glucose level Squamous carcinoma of lung, 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 pectoris Abdominal aortic aneurysm [...] venous (peripheral) insufficiency [facility] [place] [facility]* Diagnosis Pre-operative examination- Primary Preoperative examination, unspecified Elevated glucose level Squamous carcinoma of lung, 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 pectoris Abdominal aortic aneurysm [...] venous (peripheral) insufficiency [facility]* Diagnosis Pre-operative examination- Primary Preoperative examination, unspecified Elevated glucose level Squamous carcinoma of lung, 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 pectoris Abdominal aortic aneurysm [...] vascular disease, unspecified documented in this encounter [facility] note* Diagnosis Pre-operative examination- Primary Preoperative examination, unspecified Elevated glucose level Squamous carcinoma of lung, 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 pectoris Abdominal aortic aneurysm [...] venous (peripheral) insufficiency documented in this encounter [facility] note* Diagnosis Pre-operative examination- Primary Preoperative examination, unspecified Elevated glucose level Squamous carcinoma of lung, 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 pectoris Abdominal aortic aneurysm [...] part of lung documented in this encounter [facility] note* Diagnosis Pre-operative examination- Primary Preoperative examination, unspecified Elevated glucose level Squamous carcinoma of lung, 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 pectoris Abdominal aortic aneurysm [...] Chronic respiratory failure [facility]* Diagnosis Pre-operative examination- Primary Preoperative examination, unspecified Elevated glucose level Squamous carcinoma of lung, 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 pectoris Abdominal aortic aneurysm [...] venous (peripheral) insufficiency [facility]* Diagnosis Pre-operative examination- Primary Preoperative examination, unspecified Elevated glucose level Squamous carcinoma of lung, 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 pectoris Abdominal aortic aneurysm [...] vascular disease, unspecified documented in this encounter [facility]* Diagnosis Pre-operative examination- Primary Preoperative examination, unspecified Elevated glucose level Squamous carcinoma of lung, 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 pectoris Abdominal aortic aneurysm [...] vascular disease, unspecified documented in this encounter [facility]* Diagnosis Pre-operative examination- Primary Preoperative examination, unspecified Elevated glucose level Squamous carcinoma of lung, 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 pectoris Abdominal aortic aneurysm [...] Unspecified essential hypertension documented in this encounter [facility]* Diagnosis Pre-operative examination- Primary Preoperative examination, unspecified Elevated glucose level Squamous carcinoma of lung, 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 pectoris Abdominal aortic aneurysm [...] Stage 3 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 ([facility]) documented in this encounter [facility] note* Diagnosis Pre-operative examination- Primary Preoperative examination, unspecified Elevated glucose level Squamous carcinoma of lung, 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 pectoris Abdominal aortic aneurysm [...] venous (peripheral) insufficiency documented in this encounter [facility] note* Diagnosis Pre-operative examination- Primary Preoperative examination, unspecified Elevated glucose level Squamous carcinoma of lung, 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 pectoris Abdominal aortic aneurysm [...] Anxiety state, unspecified documented in this encounter [facility]* Diagnosis Pre-operative examination- Primary Preoperative examination, unspecified Elevated glucose level Squamous carcinoma of lung, 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 pectoris Abdominal aortic aneurysm [...] vascular disease, unspecified documented in this encounter [facility] note* Diagnosis Pre-operative examination- Primary Preoperative examination, unspecified Elevated glucose level Squamous carcinoma of lung, 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 pectoris Abdominal aortic aneurysm [...] venous (peripheral) insufficiency documented in this encounter [facility]* Diagnosis Pre-operative examination- Primary Preoperative examination, unspecified Elevated glucose level Squamous carcinoma of lung, 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 pectoris Abdominal aortic aneurysm [...] Chronic respiratory failure documented in this encounter [facility] note* Diagnosis Pre-operative examination- Primary Preoperative examination, unspecified Elevated glucose level Squamous carcinoma of lung, 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 pectoris Abdominal aortic aneurysm [...] lung, left (HCC) documented in this encounter [facility] note* Diagnosis Pre-operative examination- Primary Preoperative examination, unspecified Elevated glucose level Squamous carcinoma of lung, 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 pectoris Abdominal aortic aneurysm [...] vascular disease, unspecified documented in this encounter [facility] note* Diagnosis Pre-operative examination- Primary Preoperative examination, unspecified Elevated glucose level Squamous carcinoma of lung, 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 pectoris Abdominal aortic aneurysm [...] neoplasm of prostate documented in this encounter [facility] note* Diagnosis Pre-operative examination- Primary Preoperative examination, unspecified Elevated glucose level Squamous carcinoma of lung, 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 pectoris Abdominal aortic aneurysm [...] Unspecified essential hypertension documented in this encounter [facility] note* Diagnosis Pre-operative examination- Primary Preoperative examination, unspecified Elevated glucose level Squamous carcinoma of lung, 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 pectoris Abdominal aortic aneurysm [...] of other medications [facility]* Diagnosis Pre-operative examination- Primary Preoperative examination, unspecified Elevated glucose level Squamous carcinoma of lung, 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 pectoris Abdominal aortic aneurysm [...] embolism type (HCC) documented [facility]* Diagnosis Pre-operative examination- Primary Preoperative examination, unspecified Elevated glucose level Squamous carcinoma of lung, 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 pectoris Abdominal aortic aneurysm [...] history of tobacco use, presenting hazards to [facility] Anxiety Anxiety state, unspecified [facility]* Diagnosis Pre-operative examination- Primary Preoperative examination, unspecified Elevated glucose level Squamous carcinoma of lung, 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 pectoris Abdominal aortic aneurysm [...] vascular disease, unspecified documented in this encounter [facility]* Diagnosis Pre-operative examination- Primary Preoperative examination, unspecified Elevated glucose level Squamous carcinoma of lung, 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 pectoris Abdominal aortic aneurysm [...] bronchus and lung documented in this encounter [facility] note* Diagnosis Pre-operative examination- Primary Preoperative examination, unspecified Elevated glucose level Squamous carcinoma of lung, 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 pectoris Abdominal aortic aneurysm [...] Unspecified essential hypertension documented in this encounter [facility]* Diagnosis Pre-operative examination- Primary Preoperative examination, unspecified Elevated glucose level Squamous carcinoma of lung, 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 pectoris Abdominal aortic aneurysm [...] neoplasm of prostate documented in this encounter [facility] note* Diagnosis Pre-operative examination- Primary Preoperative examination, unspecified Elevated glucose level Squamous carcinoma of lung, 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 pectoris Abdominal aortic aneurysm [...] with gastric ulcer documented in this encounter [facility]* Diagnosis Pre-operative examination- Primary Preoperative examination, unspecified Elevated glucose level Squamous carcinoma of lung, 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 pectoris Abdominal aortic aneurysm [...] use, presenting hazards to health 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 Other specified intestinal malabsorption Iron 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 loss Iron deficiency anemia secondary to blood loss (chronic) Gastrointestinal hemorrhage associated with gastric ulcer documented in this encounter [facility]* Diagnosis Pre-operative examination- Primary Preoperative examination, unspecified Elevated glucose level Squamous carcinoma of lung, 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 pectoris Abdominal aortic aneurysm [...] Stage 3 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 ([facility])- Primary documented in this encounter [facility]* Diagnosis Pre-operative examination- Primary Preoperative examination, unspecified Elevated glucose level Squamous carcinoma of lung, 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 pectoris Abdominal aortic aneurysm [...] with gastric ulcer documented in this encounter [facility] note* Diagnosis Pre-operative examination- Primary Preoperative examination, unspecified Elevated glucose level Squamous carcinoma of lung, 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 pectoris Abdominal aortic aneurysm [...] with gastric ulcer documented in this encounter [facility] note* Diagnosis Pre-operative examination- Primary Preoperative examination, unspecified Elevated glucose level Squamous carcinoma of lung, 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 pectoris Abdominal aortic aneurysm [...] mixed Mixed hyperlipidemia Coronary artery 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 [place]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 [...] Nausea Nausea alone [facility]* Diagnosis Pre-operative examination- Primary Preoperative examination, unspecified Elevated glucose level Squamous carcinoma of lung, 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 pectoris Abdominal aortic aneurysm [...] blood loss (chronic) documented in this encounter [facility]* Diagnosis Pre-operative examination- Primary Preoperative examination, unspecified Elevated glucose level Squamous carcinoma of lung, 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 pectoris Abdominal aortic aneurysm [...] hazards to health Coronary artery 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 [place] heart without angina pectoris- Primary Essential hypertension Unspecified essential hypertension Hyperlipidemia, mixed Mixed hyperlipidemia PAD (peripheral artery disease) Peripheral vascular disease, unspecified Abdominal aortic aneurysm (AAA) without rupture, unspecified part documented in this encounter [facility]* Diagnosis Pre-operative examination- Primary Preoperative examination, unspecified Elevated glucose level Squamous carcinoma of lung, 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 pectoris Abdominal aortic aneurysm [...] history of tobacco use, presenting hazards to [facility] Stage 3 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 ([facility])- Primary Chronic hypoxemic respiratory failure (HCC) Chronic respiratory failure Bronchiectasis without complication (HCC) Bronchiectasis without acute exacerbation History of cancer of lower lobe bronchus or lung Personal history of malignant neoplasm of bronchus and lung Iron 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 loss Iron deficiency anemia secondary to blood loss (chronic) documented in this encounter [facility] note* Diagnosis Pre-operative examination- Primary Preoperative examination, unspecified Elevated glucose level Squamous carcinoma of lung, 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 pectoris Abdominal aortic aneurysm [...] of lung field documented in this encounter [facility] note* Diagnosis Pre-operative examination- Primary Preoperative examination, unspecified Elevated glucose level Squamous carcinoma of lung, 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 pectoris Abdominal aortic aneurysm [...] lung, left (HCC) [facility] Jacob Suazo [facility] Note Date/Time May 22, 2024 3:5 6pm [facility] Medical Records Department [address] [place] [address] H&P Exam - Hospitalist 05/22/24 1514 MR#: [id number] Acct: [id number] Name: OSWALDO CORLEY Rep #:[id number] : 1940 83 From: Jacob womack DO PCP: Dr. Mei Cummins MD Status:AD M IN [facility] - General General Date of Admission: 05/22/24 Date of Service: 05/22/24 Chief Complaint: Worsening shortness of breath HPI Narrative OSWALDO CORLEY, is a 83 M who presented to [facility] ED on 05/22/2024 with worsening shortness [...] No other acute concerns at this time. [facility] Medical History COPD exacerbation Angina at rest [...] (Auto) 95.5 H, Lymph % (Auto)1.3 L, Weld % (Auto) 2.4, Eos % (Auto) 0.1, [...] stable, without evidence of cardiomegaly. Reading Location: [address] Chest CTA 05/22/24 13:50 IMPRESSION: 1. Although predominantly ground-glass opacities, extensive changes are seen in the right lower lobe, concerning for inflammation/infection. 2. Progression of areas of left lower lobe and left upper lobe scarring, also again seen with left lower lobe pleural-based loculated air collection. 3. No evidence of pulmonary embolism. Reading Location: [address] Assessment & Plan Assessment/Plan (1) Acute exacerbation of chronic obstructive pulmonary disease: (2) Chronic respiratory failure with hypoxia and hypercapnia: (3) Acidosis, lactic: PLAN: Plan Patient is an 83-year-old male [facility] with worsening shortness [...] 55 minutes. Charges/Coding Visit Charges Inpatient E&M: 55825 Init Hosp L2 05/22/24 3260 <Electronically signed by Jacob Suazo DO> Cosigner Signature (if applicable): CC: Dr. Jacob Suazo DO; Dr. Mei Cummins MD~ Signed [facility] Work Phone: Hospital Discharge instructions Additional Instructions Keflex antibiotic 1 pill 4 times a day for 10 days. Keep your scheduled appointment with your airport clerk and follow-up with him on Thursday. Return here if a lot worse before that time. Skin cream once the infection starts healing to help the wounds in your heels heal out.[facility] Work Phone: Hospital Discharge instructionsAdditional Instructions Follow-up with your primary care physician to have your blood count rechecked. Follow-up with Dr. Moreno the GI doctor for possible colonoscopy. If you are having heavier or heavier bleeding passing clots feeling worse return you may have some mild bleeding that you can just follow-up with your primary care physician and the GI doctor for.[facility] Work Phone: Reason for referral (narrative)* Diagnostic Procedure Only (Routine) - Closed Specialty Diagnoses / Procedures Referred By Contac t Referred To Contact XR IMAGING Diagnoses Pressure injury of right heel, unstageable (HCC) Procedures XR FOOT GENERAL 3V AP/LAT/OBL RIGHT RADEX FOOT COMPLETE MINIMUM 3 VIEWS Juan Carlos Viveros [address] [place] [address] Xr Imaging Referral ID Status Reason Start Date Expiration Date V isits Requested Visits Authorized [id number] Closed Auto-Generate d Referral 01/28/2022 02/27/2023 1 1 [facility] for referral (narrative)* Diagnostic Procedure Only [...] Juan Carlos Viveros [address] [place] [address] Xr Imaging Referral ID Status Reason Start Date Expiration Date V isits Requested Visits Authorized [id number] Closed Auto-Generate d Referral 02/18/2022 03/20/2023 1 1 [facility] for referral (narrative)* Diagnostic Procedure Only (Routine) - Closed Specialty Diagnoses / Procedures Referred By Contac t Referred To Contact XR IMAGING Diagnoses 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, with fat layer 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) Procedures XR FOOT GENERAL 3V AP/LAT/OBL RIGHT RADEX FOOT COMPLETE MINIMUM 3 VIEWS Juan Carlos [address] [place] [address] Xr Imaging Referral ID Status Reason Start Date Expiration Date V isits Requested Visits Authorized [id number] Closed Auto-Generate d Referral 03/19/2022 04/18/2023 1 1 [facility] for referral (narrative)* Diagnostic Procedure Only (Routine) - Pending Review Specialty Diagnoses / Procedures Referred By Contac t Referred To Contact XR IMAGING Diagnoses 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, with fat layer 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) Procedures XR FOOT GENERAL 3V AP/LAT/OBL RIGHT RADEX FOOT COMPLETE MINIMUM [address] [place] [address] [place] [address] Xr Imaging Referral ID Status Reason Start Date Expiration Date Visits Requested Visits Authorized [id number] Pending Review Auto-Generat ed Referral 04/16/2022 05/16/2023 1 1 [facility] for referral (narrative)* Outpatient Procedure (Routine) - Closed Specialty Diagnoses / Procedures Referred By Contac t Referred To [facility] Diagnoses Encounter for preprocedural cardiovascular examination Procedures ECHO ECHO TTHRC R-T 2D W/WOM-MODE COMPL SPEC&COLR D Tyrell Vigil, DO [address] [place] [address] [facility] [place] [address] [place] [address] Referral ID Status Reason Start Date Expiration Date V isits Requested Visits Authorized [id number] Closed Auto-Generate d Referral 04/15/2022 04/15/2023 1 1 [facility] for referral (narrative)* Diagnostic Procedure Only (Routine) - Closed Specialty Diagnoses / Procedures Referred By Contac t Referred To Contact XR IMAGING Diagnoses Skin ulcer of right heel with fat layer 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) Procedures XR FOOT GENERAL 3V AP/LAT/OBL RIGHT RADEX FOOT COMPLETE MINIMUM 3 VIEWS Juan Carlos Viveros [address] [place] [address] Xr Imaging Referral ID Status Reason Start Date Expiration Date V isits Requested Visits Authorized [id number] Closed Auto-Generate d Referral 05/27/2022 06/26/2023 1 1 [facility] for referral (narrative)* Outpatient Procedure (Routine) - Closed Specialty Diagnoses / Procedures Referred By Contac t Referred To Contact [facility] Diagnoses Peripheral arterial disease (HCC) Procedures PVR ANK PRESS MARTITA VAS LAB NON-INVAS PHYSIOLOGIC STD EXTREMITY ART 2 LEVEL Tyrell Vigil DO [address] [place] [address] [facility] [place][Note 2] [facility] [place] [address] [place] [address] Referral ID Status Reason Start Date Expiration Date V isits Requested Visits Authorized [id number] Closed Auto-Generate d Referral 06/03/2022 06/03/2023 1 1 * Outpatient Procedure (Routine) - Closed Specialty Diagnoses / Procedures Referred By Contac t Referred To Contact [facility] Diagnoses Peripheral arterial disease (HCC) Procedures US LEG ARTERIAL PERIPH UNL VAS LAB DUP-SCAN LXTR ART/ARTL BPGS UNI/LMTD STUDY Tyrell Vigil DO [address] [place] [address] [facility] [place][Note 2] Vascular [address] [address] Referral ID Status Reason Start Date Expiration Date V isits Requested Visits Authorized [id number] Closed Auto-Generate d Referral 06/03/2022 06/03/2023 1 1 [facility] for referral (narrative)* Outpatient Procedure (Routine) - Pending Review Specialty Diagnoses / Procedures Referred By Contac t Referred To Contact [facility] Diagnoses Peripheral arterial disease (HCC) Procedures PVR ANK PRESS MARTITA VAS LAB NON-INVAS PHYSIOLOGIC STD EXTREMITY ART 2 LEVEL Tyrell Vigil, DO [address] [place] [address] [place] [id number] Referral ID Status Reason Start Date Expiration Date Visits Requested Visits Authorized [id number] Pending Review Auto-Generat ed Referral 07/29/2022 07/29/2023 1 1 * Outpatient Procedure (Routine) - Authorized Specialty Diagnoses / Procedures Referred By Contac t Referred To Contact [facility] Diagnoses Peripheral arterial disease (HCC) Procedures US LEG ARTERIAL PERIPH UNL VAS LAB DUP-SCAN LXTR ART/ARTL BPGS UNI/LMTD STUDY Tyrell Vigil, DO [address] [place] [address] [address] Referral ID Status Reason Start Date Expiration Date Visits Requested Visits Authorized [id number] Authorized Auto-Generat ed Referral 07/29/2022 07/29/2023 1 1 [facility] for referral (narrative)* Outpatient Procedure (Routine) - Closed Specialty Diagnoses / Procedures Referred By Contac t Referred To Contact [facility] Diagnoses Coronary artery 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 [place] heart without angina pectoris Essential hypertension Hyperlipidemia, mixed Procedures ECG COMPLETE ECG ROUTINE ECG W/LEAST 12 LDS W/I&R Bela Manzano MD [address] [place] [id number] [facility] [place] [address] [place], [place] [id number] Referral ID Status Reason Start Date Expiration Date V isits Requested Visits Authorized [id number] Closed Auto-Generate d Referral 09/23/2022 09/23/2023 1 1 [facility] for referral (narrative)* Outpatient Procedure (Routine) - Closed Specialty Diagnoses / Procedures Referred By Contac t Referred To Contact [facility] Diagnoses SOB (shortness of breath) Procedures LUNG DIFFUSION CAPACITY (DLCO) DIFFUSING CAPACITY Ab Calvillo MD [address] [facility] [place] [address] Respiratory [place] [address] [place], [place] [id number] Referral ID Status Reason Start Date Expiration Date V isits Requested Visits Authorized [id number] Closed Auto-Generate d Referral 10/13/2022 11/12/2023 1 1 * Outpatient Procedure (Routine) - Closed Specialty Diagnoses / Procedures Referred By Contac t Referred To Contact [facility] Diagnoses SOB (shortness of breath) Procedures SPIROMETRY WITH DILATOR IF OBSTRUCTED BRNCDILAT RSPSE SPMTRY PRE&POST-BRNCDILAT ADMN Ab Calvillo MD [address] [place] [address] [address] Referral ID Status Reason Start Date Expiration Date V isits Requested Visits Authorized [id number] Closed Auto-Generate d Referral 10/13/2022 11/12/2023 1 1 [facility] for referral (narrative)* Diagnostic Procedure Only (Routine) - Closed Specialty Diagnoses / Procedures Referred By Contac t Referred To Contact XR IMAGING Diagnoses Pressure injury of right heel, unstageable (HCC) Procedures XR FOOT GENERAL 3V AP/LAT/OBL RIGHT RADEX FOOT COMPLETE MINIMUM 3 VIEWS Juan Carlos V[address]os[address] [place] [address] [place] [address] Referral ID Status Reason Start Date Expiration Date V isits Requested Visits Authorized [id number] Closed Auto-Generate d Referral 01/28/2022 02/27/2023 1 1 [facility] for referral (narrative)* Diagnostic Procedure Only (Routine) - Closed Specialty Diagnoses / Procedures Referred By Contac t Referred To Contact XR IMAGING Diagnoses Peripheral arterial disease (HCC) 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, with fat layer 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) Procedures XR FOOT GENERAL 3V AP/LAT/OBL RIGHT RADEX FOOT COMPLETE MINIMUM 3 VIEWS Juan Carlos [address] [place] [address] [place] [address] Referral ID Status Reason Start Date Expiration Date V isits Requested Visits Authorized [id number] Closed Auto-Generate d Referral 02/18/2022 03/20/2023 1 1 [facility] for referral (narrative)* Diagnostic Procedure Only (Routine) - Closed Specialty Diagnoses / Procedures Referred By Contac t Referred To Contact XR IMAGING Diagnoses Skin ulcer of right heel with fat layer 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) Peripheral arterial disease (HCC) Procedures XR FOOT GENERAL 3V AP/LAT/OBL RIGHT RADEX FOOT COMPLETE MINIMUM 3 VIEWS Juan Carlos [address] [place] [address] [place] [address] Referral ID Status Reason Start Date Expiration Date V isits Requested Visits Authorized [id number] Closed Auto-Generate d Referral 08/26/2022 09/25/2023 1 1 [facility] for referral (narrative)* Diagnostic Procedure Only (Routine) - Closed Specialty Diagnoses / Procedures Referred By Contac t Referred To Contact XR IMAGING Diagnoses Skin ulcer of right heel with fat layer 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) Procedures XR FOOT GENERAL 3V AP/LAT/OBL RIGHT RADEX FOOT COMPLETE MINIMUM 3 VIEWS Juan Carlos Viveros [address] [place] [address] [place] [address] Referral ID Status Reason Start Date Expiration Date V isits Requested Visits Authorized [id number] Closed Auto-Generate d Referral 05/27/2022 06/26/2023 1 1 [facility] for referral (narrative)* Diagnostic Procedure Only (Routine) - Closed Specialty Diagnoses / Procedures Referred By Contac t Referred To Contact XR IMAGING Diagnoses 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, with fat layer 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) Procedures XR FOOT GENERAL 3V AP/LAT/OBL RIGHT RADEX FOOT COMPLETE MINIMUM 3 VIEWS Juan Carlos [address] [place] [address] Xr Imaging [facility]95 Referral ID Status Reason Start Date Expiration Date V isits Requested Visits Authorized [id number] Closed Auto-Generate d Referral 03/19/2022 04/18/2023 1 1 [facility] for referral (narrative)* Outpatient Procedure (Routine) - Authorized Specialty Diagnoses / Procedures Referred By Contac t Referred To Contact [facility] Diagnoses Peripheral arterial disease (HCC) Procedures PVR ANK/JUARES/TOE MARTITA VAS LAB NON-INVAS PHYSIOLOGIC STD EXTREMITY ART 2 LEVEL Tyrell Vigil DO [address] [place] [address] [facility] [place][Note 2] [facility] [place] [address] [place] [address] Referral ID Status Reason Start Date Expiration Date Visits Requested Visits Authorized [id number] Authorized Auto-Generat ed Referral 08/18/2023 08/17/2024 1 1 * Outpatient Procedure (Routine) - Authorized Specialty Diagnoses / Procedures Referred By Contac t Referred To Contact [facility] Diagnoses Peripheral arterial disease (HCC) Abdominal aortic ectasia (HCC) Procedures US ABD AORTA COMPLETE VAS LAB DUP-SCAN AORTA IVC ILIAC VASCL/BPGS COMPLETE Tyrell Vigil DO [address] [place] [address] [facility] [place] [address] [place] [address] Referral ID Status Reason Start Date Expiration Date Visits Requested Visits Authorized [id number] Authorized Auto-Generat ed Referral 08/18/2023 08/17/2024 1 1 [facility] for referral (narrative)* Diagnostic Procedure Only (Routine) - Closed Specialty Diagnoses / Procedures Referred By Contac t Referred To Contact XR IMAGING Diagnoses Skin ulcer, limited to breakdown of skin (HCC) Procedures XR ANKLE GENERAL 3V AP/LAT/OBL LEFT RADEX ANKLE COMPLETE MINIMUM 3 VIEWS Juan Carlos Viveros [address] [place] [address] [place] [address] Referral ID Status Reason Start Date Expiration Date V isits Requested Visits Authorized [id number] Closed Auto-Generate d Referral 11/23/2023 12/22/2024 1 1 [facility] for referral (narrative)* Outpatient Procedure (Routine) - New Request Specialty Diagnoses / Procedures Referred By Contac t Referred To Contact [facility] Diagnoses Stage 3 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 ([facility]) Chronic hypoxemic respiratory failure (HCC) Procedures OXIMETRY WITH AMBULATION NONINVASIVE EAR/PULSE OXIMETRY Rosalie Fisher PA-C [address] [place] [address] Respiratory [place] [address] [place] [address] Referral ID Status Reason Start Date Expiration Date Visits Requested Visits Authorized [id number] New Request Auto-Generat ed Referral 12/02/2023 12/31/2024 1 1 [facility] for referral (narrative)* Outpatient Procedure (Routine) - Authorized Specialty Diagnoses / Procedures Referred By Contac t Referred To Contact [facility] Diagnoses Skin ulcer, limited to breakdown of skin (HCC) Peripheral arterial disease (HCC) Venous insufficiency Procedures US VENOUS INCOMPETENCY MARTITA VAS LAB DUP-SCAN XTR VEINS COMPLETE BILATERAL STUDY Juan Carlos Viveros [address] [place] [address] [facility] [place][Note 2] Vascular [place] [address] [place] [address] Referral ID Status Reason Start Date Expiration Date Visits Requested Visits Authorized [id number] Authorized Auto-Generat ed Referral 01/05/2024 01/04/2025 1 1 * Diagnostic Procedure Only (Routine) - Closed Specialty Diagnoses / Procedures [facility] XR IMAG[facility] Diagnoses Skin ulcer, limited to breakdown of skin (HCC) Peripheral arterial disease (HCC) Venous insufficiency Procedures XR ANKLE GENERAL 3V AP/LAT/OBL LEFT RADEX ANKLE COMPLETE MINIMUM 3 VIEWS Juan Carlos Viveros [address] [place] [address] [place] [address] Referral ID Status Reason Start Date Expiration Date V isits Requested Visits Authorized [id number] Closed Auto-Generate d Referral 01/05/2024 02/03/2025 1 1 [facility] for referral (narrative)* Outpatient Procedure (Routine) - Authorized Specialty Diagnoses / Procedures Referred By Contac t Referred To Contact [facility] Diagnoses Peripheral arterial disease (HCC) Procedures PVR ANK/JUARES/TOE MARTITA VAS LAB NON-INVAS PHYSIOLOGIC STD EXTREMITY ART 2 LEVEL Betito Mauro MD [address] [place] [address] Heart [facility] Vascular [place] [id number] Referral ID Status Reason Start Date Expiration Date Visits Requested Visits Authorized [id number] Authorized Auto-Generat ed Referral 03/07/2024 02/04/2025 1 1 [facility] for referral (narrative)No reason for referral information [facility] Phone: [facility] N[facility]* Diagnostic Procedure Only (Routine) - Closed Specialty Diagnoses / Procedures Referred By Contac t Referred To Contact MOLECULAR [facility] FUNCTIONAL IMAGING Diagnoses Encounter for preprocedural cardiovascular examination Procedures NM CARDIAC PERF STRESS/PHARM MYOCARDIAL SPECT MULTIPLE STUDIES Tyrell Vigil, DO [address] [place] [phone] Molecular [facility] Functional Imaging [address] [place] [address] Referral ID Status Reason Start Date Expiration Date V isits Requested Visits Authorized [id number] Closed Auto-Generate d Referral 04/15/2022 05/15/2023 1 1 [facility] for visit Narrative* Outpatient Procedure (Routine) - Closed Specialty Diagnoses / Procedures Referred By Abby t Referred To Contact [facility] Diagnoses Encounter for preprocedural cardiovascular examination Procedures ECHO ECHO TTHRC R-T 2D W/WOM-MODE COMPL SPEC&COLR D Tyrell Vigil DO [address] [place] [phone] [facility] [place][Note 2] [facility]ascular [place] [address] [place] [address] Referral ID Status Reason Start Date Expiration Date V isits Requested Visits Authorized [id number] Closed Auto-Generate d Referral 04/15/2022 04/15/2023 1 1 [facility] for visit Narrative* Diagnostic Procedure Only (Routine) - Closed Specialty Diagnoses / Procedures Referred By Contac t Referred To Contact XR IMAGING Diagnoses Pressure injury of right heel, unstageable (HCC) Procedures XR FOOT GENERAL 3V AP/LAT/OBL RIGHT RADEX FOOT COMPLETE MINIMUM [address] [place] [place] [address] [place] [address] Referral ID Status Reason Start Date Expiration Date V isits Requested Visits Authorized [id number] Closed Auto-Generate d Referral 01/28/2022 02/27/2023 1 1 [facility] for visit Narrative* Diagnostic Procedure Only (Routine) - Closed Specialty Diagnoses / Procedures Referred By Contac t Referred To Contact XR IMAGING Diagnoses Peripheral arterial disease (HCC) 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, with fat layer 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) Procedures XR FOOT GENERAL 3V AP/LAT/OBL RIGHT RADEX FOOT COMPLETE MINIMUM 3 VIEWS TestJuan Carlos galan [address] [place] [address] [place] [address] Referral ID Status Reason Start Date Expiration Date V isits Requested Visits Authorized [id number] Closed Auto-Generate d Referral 02/18/2022 03/20/2023 1 1 [facility] for visit Narrative* Diagnostic Procedure Only (Routine) - Closed Specialty Diagnoses / Procedures Referred By Contac t Referred To Contact XR IMAGING Diagnoses Skin ulcer of right heel with fat layer 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) Peripheral arterial disease (HCC) Procedures XR FOOT GENERAL 3V AP/LAT/OBL RIGHT RADEX FOOT COMPLETE MINIMUM 3 VIEWS TestJuan Carlos galan [address] [place] [address] [place] [address] Referral ID Status Reason Start Date Expiration Date V isits Requested Visits Authorized [id number] Closed Auto-Generate d Referral 08/26/2022 09/25/2023 1 1 [facility] for visit Narrative* Diagnostic Procedure Only (Routine) - Closed Specialty Diagnoses / Procedures Referred By Contac t Referred To Contact XR IMAGING Diagnoses Skin ulcer of right heel with fat layer 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) Procedures XR FOOT GENERAL 3V AP/LAT/OBL RIGHT RADEX FOOT COMPLETE MINIMUM 3 VIEWS TestJuan Carlos galan [address] [place] [address] [place] [address] Referral ID Status Reason Start Date Expiration Date V isits Requested Visits Authorized [id number] Closed Auto-Generate d Referral 05/27/2022 06/26/2023 1 1 [facility] for visit Narrative* Diagnostic Procedure Only (Routine) - Closed Specialty Diagnoses / Procedures Referred By Contac t Referred To Contact XR IMAGING Diagnoses 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, with fat layer 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) Procedures XR FOOT GENERAL 3V AP/LAT/OBL RIGHT RADEX FOOT COMPLETE MINIMUM 3 VIEWS Juan Carlos Viveros [address] [place] [address] [place] [address] Referral ID Status Reason Start Date Expiration Date V isits Requested Visits Authorized [id number] Closed Auto-Generate d Referral 03/19/2022 04/18/2023 1 1 [facility] for visit Narrative* Diagnostic Procedure Only (Routine) - Closed Specialty Diagnoses / Procedures Referred By Contac t Referred To Contact XR IMAGING Diagnoses Skin ulcer, limited to breakdown of skin (HCC) Procedures XR ANKLE GENERAL 3V AP/LAT/OBL LEFT RADEX ANKLE COMPLETE MINIMUM 3 VIEWS Juan Carlos Viveros [address] [place] [address] [place] [address] Referral ID Status Reason Start Date Expiration Date V isits Requested Visits Authorized [id number] Closed Auto-Generate d Referral 11/23/2023 12/22/2024 1 1 [facility] for visit Narrative* Diagnostic Procedure Only (Routine) - Closed Specialty Diagnoses / Procedures Referred By Contac t Referred To Contact XR IMAGING Diagnoses Skin ulcer, limited to breakdown of skin (HCC) Peripheral arterial disease (HCC) Venous insufficiency Procedures XR ANKLE GENERAL 3V AP/LAT/OBL LEFT RADEX ANKLE COMPLETE MINIMUM 3 VIEWS Juan Carlos Viveros [address] [place] [address] [place] [address] Referral ID Status Reason Start Date Expiration Date V isits Requested Visits Authorized [id number] Closed Auto-Generate d Referral 01/05/2024 02/03/2025 1 1 [facility] for visit Narrative* MRI/CT (Routine) - Closed Specialty Diagnoses / Procedures Referred By Contac t Referred To Contact CT IMAGING Diagnoses Squamous carcinoma of lung, left (HCC) Procedures CT CHEST W IVCON DIAGNOSTIC COMPUTED TOMOGRAPHY THORAX W/CONTRAST Salazar Meraz DO [address] [place] [address] Phone: tel: fax: [place] [address] Referral ID Status Reason Start Date Expiration Date V isits Requested Visits Authorized [id number] Closed Auto-Generate d Referral 03/21/2024 04/20/2025 1 1 [facility] Summary Purpose Family History No Family [...] Documents on File Type Date Recorded Patient Smoking Tobacco Packing Machine Hand Expl anation Advance Directive(s) 04/06/2009 12:00 AM Advance Directive(s) 04/17/2006 12:00 AM Documents on File Type Date Recorded Patient Smoking Tobacco Packing Machine Hand Expl anation Advance Directive(s) 04/06/2009 12:00 AM Advance Directive(s) 04/17/2006 12:00 AM Advance Directive Response Recorded Date/ Time Advance Directives No January 03, 2015 11:33am Living Will Yes August 13, 2020 8:35am Power of Director Ship Yes August 13 8:35am Documents on File Type Date Recorded Patient Smoking Tobacco Packing Machine Hand Expl anation Advance Directive(s) 04/06/2009 Advance Directive(s) 04/17/2006 Documents on File Type Date Recorded Patient Smoking Tobacco Packing Machine Hand Expl anation Advance Directive(s) 04/06/2009 Advance Directive(s) 04/17/2006 Advance Directive Response Recorded Date/ Time Name of Medical Power of Director Ship December 15, 2021 12:09pm Advance Directives No January 03, 2015 11:33am Living Will Yes December 15 12:09pm Power of Director Ship Yes December 15, 2021 12:09pm Advance Directive Response Recorded Date/ Time Name of Medical Power of Director Ship December 15, 2021 11:09am Advance Directives No January 03, 2015 10:33am Living Will No January 25, 2 022 2:33pm Power of Director Ship No January 25, 2022 2:33pm Advance Directive Response Recorded Date/ Time Advance Directives No January 03, 2015 10:33am Living Will No January 25, 2 022 2:33pm Power of Director Ship No January 25, 2022 2:33pm Advance Directive Response Recorded Date/ Time Advance Directives No January 03, 2015 11:33am Living Will No November 24, 2022 1:55pm Power of Director Ship No October 1:55pm Advance Directive Response Recorded Date/ Time Advance Directives No January 03, 2015 10:33am Living Will No November 24, 2022 12:55pm Power of Director Ship No October 12:55pm Advance Directive Response Recorded Date/ Time Advance Directives No January 03, 2015 10:33am Living Will No March 25 12:54pm Power of Director Ship No March 25, 2023 12:54pm Advance Directive Response Recorded Date/ Time Advance Directives No January 03, 2015 10:33am Living Will No March 25 4:56pm Power of Director Ship No March 25, 2023 4:56pm Advance Directive Response Recorded Date/ Time Name of Medical Power of Director Ship christina/ May 28, 2023 1:04pm Advance Directives No January 03, 2015 11:33am Living Will Yes May 28, 2023 1:04pm Power of Director Ship Yes May 27 1:04pm Documents on File Type Date Recorded Patient Smoking Tobacco Packing Machine Hand Expl anation Advance Directive(s) 04/25/2024 3:00 PM Advance Directive(s) 04/06/2009 Advance Directive(s) 04/17/2006 Advance Directive Response Recorded Date/ Time Living Will Yes October 19 3:47pm Do you have a Healthcare Power of Director Ship? Yes October 20, 2023 3:47pm Living Will Yes February 18 8:45pm Do you have a Healthcare Power of Director Ship? Yes February 19, 2024 8:45pm Name of Medical Power of Director Ship Serenity Corley February 19, 2024 8:45pm Living Will Yes May 22, 2024 12:13pm Do you have a Healthcare Power of Director Ship? Yes May 22, 2024 12:13pm Name of Medical Power of Director Ship Serenity Corley May 22, 2024 12:13pm Advance Directives No January 03, 2015 11:33am Advance Directive Response Recorded Date/ Time Living Will Yes October 19 3:47pm Do you have a Healthcare Power of Director Ship? Yes October 20, 2023 3:47pm Living Will Yes February 18 8:45pm Do you have a Healthcare Power of Director Ship? Yes February 19, 2024 8:45pm Name of Medical Power of Director Ship Serenity Corley February 19, 2024 8:45pm Living Will Yes May 22, 2024 4:20pm Do you have a Healthcare Power of Director Ship? Yes May 22, 2024 4:20pm Name of Medical Power of Director Ship Serenity Corley May 22, 2024 4:20pm Advance Directives No January 03, 2015 11:33am Advance Directive Response Recorded Date/ Time Living Will Yes October 19 3:47pm Do you have a Healthcare Pow er of Director Ship? Yes October 20, 2023 3:47pm Living Will Yes February 18 8:45pm Do you have a Healthcare Pow er of Director Ship? Yes February 19, 2024 8:45pm Name of Medical Power of Director Ship Serenity Corley February 19, 2024 8:45pm Living Will Yes May 22, 2024 4:20pm Do you have a Healthcare Pow er of Director Ship? Yes May 22, 2024 4:20pm Name of Medical Power of Director Ship Serenity Corley May 22, 2024 4:20pm Living Will Yes June 03, 2024 3:07pm Do you have a Healthcare Pow er of Director Ship? Yes June 03, 2024 3:07pm Name of Medical Power of Director Ship christina corley, June 03, 2024 3:07pm Advance Directives No January 03, 2015 11:33am Advance Directive Response Recorded Date/ Time Living Will Yes October 19 3:47pm Do you have a Healthcare Pow er of Director Ship? Yes October 20, 2023 3:47pm Living Will Yes February 18 8:45pm Do you have a Healthcare Pow er of Director Ship? Yes February 19, 2024 8:45pm Name of Medical Power of Director Ship Serenity Corley February 19, 2024 8:45pm Living Will Yes May 22, 2024 4:20pm Do you have a Healthcare Pow er of Director Ship? Yes May 22, 2024 4:20pm Name of Medical Power of Director Ship Serenity Corley May 22, 2024 4:20pm Living Will Yes June 03, 2024 7:15pm Do you have a Healthcare Pow er of Director Ship? Yes June 03, 2024 7:15pm Name of Medical Power of Director Ship Christina Corley, June 03, 2024 7:15pm Advance Directives No January 03, 2015 11:33am Advance Directive Response Recorded Date/ Time Living Will Yes February 18 8:45pm Do you have a Healthcare Pow er of Director Ship? Yes February 19, 2024 8:45pm Name of Medical Power of Director Ship Serenity Corley February 19, 2024 8:45pm Living Will Yes May 22, 2024 4:20pm Do you have a Healthcare Pow er of Director Ship? Yes May 22, 2024 4:20pm Name of Medical Power of Director Ship Serenity Corley May 22, 2024 4:20pm Living Will Yes June 03, 2024 7:15pm Do you have a Healthcare Pow er of Director Ship? Yes June 03, 2024 7:15pm Name of Medical Power of Director Ship Christina Corley, June 03, 2024 7:15pm Advance Directives No January 03, 2015 11:33am Documents on File Type Date Recorded Patient Smoking Tobacco Packing Machine Hand Expl anation Advance Directive(s) 04/25/2024 3:00 PM Advance Directive(s) 04/06/2009 Advance Directive(s) 04/17/2006 Advance Directive Response Recorded Date/ Time Living Will Yes May 22, 2024 4:20pm Do you have a Healthcare Pow er of Director Ship? Yes May 22, 2024 4:20pm Name of Medical Power of Director Ship Serenity Corley May 22, 2024 4:20pm Living Will Yes June 03, 2024 7:15pm Do you have a Healthcare Pow er of Director Ship? Yes June 03, 2024 7:15pm Name of Medical Power of Director Ship Christina Corley, June 03, 2024 7:15pm Advance Directives No January 03, 2015 11:33am Advance Directive Response Recorded Date/ Time Living Will Yes May 22, 2024 4:20pm Do you have a Healthcare Pow er of Director Ship? Yes May 22, 2024 4:20pm Name of Medical Power of Director Ship Serenity Corley May 22, 2024 4:20pm Living Will Yes June 03, 2024 7:15pm Do you have a Healthcare Pow er of Director Ship? Yes June 03, 2024 7:15pm Name of Medical Power of Director Ship Christina Corley, June 03, 2024 7:15pm Do you have a Healthcare Pow er of Director Ship? Yes September 17, 2024 10:58am Advance Directives No January 03, 2015 11:33am Advance Directive Response Recorded Date/ Time Living Will Yes June 03, 2024 7:15pm Do you have a Healthcare Pow er of Director Ship? Yes June 03, 2024 7:15pm Name of Medical Power of Director Ship Christina Corley, June 03, 2024 7:15pm Do you have a Healthcare Pow er of Director Ship? Yes September 17, 2024 10:58am Advance Directives No January 03, 2015 11:33am Reason for Referral Status Reason Specialty Diagnoses / Procedures Referre d By Contact Referred To Contact Open Radiology Diagnoses Nodule of left lung Procedures PET CT SKULL BASE TO MID THIGH Oliverio Herrmann MD [address] [place] [address], [address] [place] [address] Specialty Diagnoses / Procedures Referred By Abby douglas Referred To Contact CT IMAGING Diagnoses Malignant neoplasm of unspecified part of unspecified bronchus or lung (HCC) Procedures CT CHEST W IVCON DIAGNOSTIC COMPUTED TOMOGRAPHY THORAX W/CONTRAST Salazar Meraz DO [address] [place] [address] Ct Imaging Referral ID Status Reason Start Date Expiration Date V isits Requested Visits Authorized [id number] Closed Auto-Generate d Referral 04/26/2021 05/26/2022 1 1 Referral ID Status Reason Start Date Expiration Date Visits Requested Visits Authorized [id number] Authorized Auto-Generat ed Referral 07/19/2021 08/18/2022 1 1 Specialty Diagnoses / Procedures Referred By Contac t Referred To Contact CT IMAGING Diagnoses Malignant neoplasm of unspecified part of unspecified bronchus or lung (HCC) Procedures CT CHEST W IVCON DIAGNOSTIC COMPUTED TOMOGRAPHY THORAX W/CONTRAST Salazar Meraz, DO [address] [place] [address] Ct Imaging Referral ID Status Reason Start Date Expiration Date V isits Requested Visits Authorized [id number] Closed Auto-Generate d Referral 07/19/2021 08/18/2022 1 1 Referral ID Status Reason Start Date Expiration Date Visits Requested Visits Authorized [id number] Authorized Auto-Generat ed Referral 11/19/2021 12/19/2022 1 1 Specialty Diagnoses / Procedures Referred By Contac t Referred To Contact CT IMAGING Diagnoses Malignant neoplasm of unspecified part of unspecified bronchus or lung (HCC) Procedures CT ABD/PEL W IVCON CT ABD & PELVIS W/CONTRAST Salazar Meraz, DO [address] [place] [address] Ct Imaging Referral ID Status Reason Start Date Expiration Date Visits Requested Visits Authorized [id number] Authorized Auto-Generat ed Referral 11/19/2021 12/19/2022 1 1 Specialty Diagnoses / Procedures Referred By Contac t Referred To Contact Podiatry Diagnoses Pressure injury of right heel, unstageable (HCC) Peripheral arterial disease (HCC) Fissure in skin of foot Procedures CONSULT TO PODIATRY OFFICE/OUTPATIENT NEW HIGH MDM 60-74 MINUTES Tyrell Vigil, DO [address] [place] [address] Referral ID Status Reason Start Date Expiration Date Visits Requested Visits Authorized [id number] Authorized PCP Requested Referral 2 01/21/2023 1 1 Specialty Diagnoses / Procedures Referred By Contac t Referred To Contact CT IMAGING Diagnoses Diminished pulses in lower extremity Procedures CTA ABD/PEL LOWER EXTREM W IVCON CTA ABDL AORTA&BI ILIOFEM W/CONTRAST&POSTP Tyrell Vigil, DO [address] [place] [address] Ct Imaging Referral ID Status Reason Start Date Expiration Date Visits Requested Visits Authorized [id number] Authorized Auto-Generat ed Referral 02/20/2023 1 1 Specialty Diagnoses / Procedures Referred By Contac t Referred To Contact CT IMAGING Diagnoses Malignant neoplasm of unspecified part of unspecified bronchus or lung (HCC) Procedures CT CHEST W IVCON DIAGNOSTIC COMPUTED TOMOGRAPHY THORAX W/CONTRAST Salazar Meraz, DO [address] [place] [address] [place] [address] Referral ID Status Reason Start Date Expiration Date V isits Requested Visits Authorized [id number] Closed Auto-Generate d Referral 11/19/2021 12/19/2022 1 1 Specialty Diagnoses / Procedures Referred By Contac t Referred To Contact CT IMAGING Diagnoses Malignant neoplasm of unspecified part of unspecified bronchus or lung (HCC) Procedures CT ABD/PEL W IVCON CT ABD & PELVIS W/CONTRAST Salazar Meraz, DO [address] [place] [address] [place] [address] Referral ID Status Reason Start Date Expiration Date V isits Requested Visits Authorized [id number] Closed Auto-Generate d Referral 11/19/2021 12/19/2022 1 1 Specialty Diagnoses / Procedures Referred By Contac t Referred To Contact CT IMAGING Diagnoses Squamous carcinoma of lung, left (HCC) Procedures CT CHEST W IVCON DIAGNOSTIC COMPUTED TOMOGRAPHY THORAX W/CONTRAST Salazar Meraz, DO [address] [place] [address] [place] [address] Referral ID Status Reason Start Date Expiration Date Visits Requested Visits Authorized [id number] Pending Review Auto-Generat ed Referral 05/18/2023 06/16/2024 1 1 Referral ID Status Reason Start Date Expiration Date Visits Requested Visits Authorized [id number] Authorized Auto-Generat ed Referral 06/19/2023 07/18/2024 1 1 Specialty Diagnoses / Procedures Referred By Contac t Referred To Contact CT IMAGING Diagnoses Squamous carcinoma of lung, left (HCC) Lung nodules Procedures CT CHEST W IVCON DIAGNOSTIC COMPUTED TOMOGRAPHY THORAX W/CONTRAST Salazar eMraz, DO [address] [place] [address] Ct Imaging [place] [address] Referral ID Status Reason Start Date Expiration Date Visits Requested Visits Authorized [id number] Authorized Auto-Generat ed Referral 08/24/2023 09/22/2024 1 1 Referral ID Status Reason Start Date Expiration Date Visits Requested Visits Authorized [id number] Authorized Auto-Generat ed Referral 11/22/2023 12/21/2024 1 1 Specialty Diagnoses / Procedures Referred By Contac t Referred To Contact CT IMAGING Diagnoses Pneumonia of left lung due to infectious organism, unspecified part of lung Procedures CT CHEST WO IVCON DIAGNOSTIC COMPUTED TOMOGRAPHY THORAX W/O CNTRST Kailash Cordova, OIL DELIVERER.MEDICAL DEVICE ASSEMBLER [address] [place] [id number] Imaging [place] [address] Referral ID Status Reason Start Date Expiration Date Visits Requested Visits Authorized [id number] Authorized Auto-Generat ed Referral 01/06/2025 1 1 Specialty Diagnoses / Procedures Referred By Contac t Referred To Contact CT IMAGING Diagnoses Peripheral vascular disease (HCC) Procedures CTA ABD/PEL LOWER EXTREM W IVCON CTA ABDL AORTA&BI ILIOFEM W/CONTRAST&POSTP Tyrell Vigil, DO [address] [place] [address] Ct Imaging [place] [address] Referral ID Status Reason Start Date Expiration Date Visits Requested Visits Authorized [id number] New Request Auto-Generat ed Referral 01/05/2024 02/03/2025 1 1 Referral ID Status Reason Start Date Expiration Date Visits Requested Visits Authorized [id number] Authorized Auto-Generat ed Referral 03/21/2024 04/20/2025 1 1 Specialty Diagnoses / Procedures Referred By Contac t Referred To Contact Diagnoses COPD, frequent exacerbations (HCC) Rosalie Martinez PA-C [address] [place] [address] Referral ID Status Reason Start Date Expiration Date V isits Requested Visits Authorized [id number] Pending Review 1 1 Assessments Diagnosis Nodule [...] to 1st floor surgery. Please bring your Surgical Information folder on the day of surgery. * Attachments The following attachments cannot be sent through Care Everywhere. * Pulmonary Nodules: General Info ([place]uan) * Thoracotomy: Pre-op ([place]) * Thoracotomy: Post-op ([place]) * VATS (Video-Assisted Thoracoscopic Surgery): Pre-op ([place]) * VATS (Video-Assisted Thoracoscopic Surgery): Post-op ([place]) documented in this encounter* Discharge Instr - Lab* Jocelin Parsons LPN - 03/01/2020 2:17 PM EST If you change your mind and decide you would like home care Please call [facility] [phone] SCHEDULING [phone] * Additional Instructions* Daniela Walls MD - 03/01/2020 Use your miniature drain as instructed. Use the syringe to drain fluid when the canister gets full. * Attachments The following attachments cannot be sent through Care Everywhere. * Chest Tube Care ([place]uan) documented in this encounter* Discharge Instr - [...] at most local grocery stores, pharmacies, and [employer] super-stores. If you have any questions about your diet or nutrition, call the hospital and ask for the dietitian. Low salt diet * Discharge Instr - Lab* Soraya Lam RN - 04/06/2020 5:05 PM EST Your physician has ordered skilled home care services for you. Your home care will be provided by: [facility] [phone] documented in this encounter History of Present [...] activity at this time. * Juan Carlos Dunn APRN - MEDICAL DEVICE ASSEMBLER - 03/03/2020 7:21 AM EST Cardiothoracic Surgery [...] thoracotomy incision c/d/i Data: CBC: Recent Labs 03/01/20 0317 03/02/20 0419 03/03/20 0001 WBC 6.4 7.1 7.2 HGB 10.8* 10.6* 10.9* HCT 33.1* 32.9* 33.4* PLT 295 316 355 BMP: Recent Labs 03/01/20 0317 03/02/20 0419 03/03/20 0001 NA 133* 134* 133* K 3.6 [...] follow up in 1 week with an [employer]SCAST PRODUCER - Pathology discussed with the patient prior [...] to change dressing PRN * Neil Puckett RCP - 03/02/2020 2:39 PM EST [facility] Respiratory Care Department Progress Note SpO2 at rest on RA = 91% SpO2 with ambulation on RA = 93% Distance Walked = 100ft Qualify for home O2 Y/N = No Patient mobile at home Y/N = Yes * Rocio Carroll OT - 03/02/2020 11:14 AM EST Occupational [...] failure (HCC), COPD (chronic obstructive pulmonary disease) ([facility]), HLD (hyperlipidemia), HTN (hypertension), Influenza B, Nocturnal [...] Ambulation Assistance: Independent Transfer Assistance: Independent Active Client Account Manager: Yes Mode of Transportation: Car Occupation: Retired [...] [facility]. AM-PAC Score [facility] Inpatient Daily Activity Raw Score: 18 (03/02/20 1110) AM[facility] Inpatient ADL T-Scale Score : 38.66 (03/02/20 [...] 25 Minutes(2 self care) Rocio Carroll OT Marsha Mcleod RN - 03/02/2020 10:[address] dressing changed over night. This morning, serous drainage noted on dressing. made aware. Ordered to reinforce dressing Daniela Marshall MD - 03/02/2020 7:20 AM EST Cardiothoracic [...] thoracotomy incision c/d/i Data: CBC: Recent Labs 02/29/20 0017 03/01/20 0317 03/02/20 0419 WBC 7.7 6.4 7.1 HGB 10.7* 10.8* 10.6* HCT 32.5* 33.1* 32.9* PLT 299 295 316 BMP: Recent Labs 02/29/20 0017 03/01/20 0317 03/02/20 0419 NA 134* 133* 134* K [...] plan of care as documented by the resident/MANAGER PHP/AIRPLANE ELECTRICIAN/PA, unless otherwise noted. Oliverio Herrmann MD * [...] after next void * Mallory Andrews RD, LD - 03/01/2020 12:48 PM EST Comprehensive Nutrition [...] Usual Body Weight: 185 lb (83.9 kg) [place] Body Weight: 178 lbs BMI: 23.6 Adjusted [...] Planning: Too soon to determine Contact: phone *[phone] * Laura Cardona PTA - 03/01/2020 11:23 [...] CBC: Recent Labs 02/28/20 0120 02/29/20 0017 03/01/20316 WBC 7.4 7.7 6.4 HGB 10.6* 10.7* 10.8* HCT 32.4* 32.5* 33.1* PLT 267 299 295 BMP: Recent Labs 02/28/20 0120 02/29/20 0017 03/01/20316 NA 133* 134* 133* K 3.9 3.9 [...] plan of care as documented by the resident/MANAGER PHP/AIRPLANE ELECTRICIAN/PA, unless otherwise noted. Oliverio Herrmann MD * Laura Cardona, DISINTEGRATOR FEEDER - 02/29/2020 1:33 PM EST Physical Therapy Facility/Department: [facility] TE[facility] Daily Treatment Note NAME: [...] (coronary artery disease), Chronic hypoxemic respiratory failure ([facility]), COPD (chronic obstructive pulmonary disease) ([facility]), HLD (hyperlipidemia), HTN (hypertension), Influenza B, Nocturnal hypoxia, On home O2, and Prostate CA ([facility]). has a past surgical history that includes [...] Code Treatment Minutes: 24 Minutes(gait, TP) *This DISINTEGRATOR FEEDER wore N95, gloves and safety glasses during whole treatment session.* Laura Cardona PTA * Laura Cardona DISINTEGRATOR FEEDER - 02/29/2020 9:59 AM EST Physical Therapy [...] plan of care as documented by the resident/MANAGER PHP/AIRPLANE ELECTRICIAN/PA, unless otherwise noted. Please do not hesitate to contact me/us if you have any questions or concerns. Mario Wayne MD FACS * Laura Cardona, DISINTEGRATOR FEEDER - 02/28/2020 4:06 PM EST Physical Therapy Facility/Department: [facility] Daily Treatment Note NAME: [...] history of Aneurysm of aorta (HCC), Bronchiectasis ([facility]), CAD (coronary artery disease), Chronic hypoxemic respiratory failure ([facility]), COPD (chronic obstructive pulmonary disease) ([facility]), HLD (hyperlipidemia), HTN (hypertension), Influenza B, Nocturnal hypoxia, On home O2, and Prostate CA ([facility]). has a past surgical history that includes [...] Code Treatment Minutes: 30 Minutes(gait, TP) *This DISINTEGRATOR FEEDER wore N95, gloves and safety glasses during [...] thoracotomy incision c/d/i Data: CBC: Recent Labs 02/26/20 0328 02/27/20 0440 02/28/20 0120 WBC 8.7 7.7 7.4 HGB 10.8* 11.6* 10.6* HCT 32.4* 35.3* 32.4* PLT 278 282 267 BMP: Recent Labs 02/26/20 0328 02/27/20 0440 02/28/20 0120 NA 132* 133* [...] plan of care as documented by the resident/MANAGER PHP/AIRPLANE ELECTRICIAN/PA, unless otherwise noted. Please do not hesitate [...] assess Estimated Daily Nutrient Needs: Energy (kcal): 2062-2317; Weight Used for Energy Requirements: [place] Protein (g): 97-113; Weight Used for Protein Requirements: [place](1.2-1.5g/kg) Fluid (ml/day): Per MD; Method Used for Fluid Requirements: (N/A) Nutrition Related Findings: hypoactive bowel sounds; +nausea; +distended abdomen; chest tubes x2; -I&O; [place] 20 Wounds: Surgical Incision Anthropometric Measures: Height: 6' (182.9 cm) Current Body Weight: (no new weight) Usual Body Weight: 198 lb (89.8 kg)(02/15) [place] Body Weight: 178 lbs; % [place] Body Weight 109.6 % BMI: 26.4 Adjusted [...] Discharge Planning: Continue current diet Contact: pager [phone] * Laura Cardona PTA - 02/27/2020 10:27 AM EST Physical Therapy Facility/Department: [facility] Daily Treatment Note NAME: [...] 28 Minutes(FA, TP) Variance: 10(on BSC) *This DISINTEGRATOR FEEDER wore N95, gloves and safety glasses during whole treatment session.* Laura Cardona PTA * Daniela Walls MD - 02/27/2020 7:44 [...] thoracotomy incision c/d/i Data: CBC: Recent Labs 02/25/200 02/26/20 0328 02/27/20 0440 WBC 7.1 8.7 7.7 HGB [...] care Daniela Walls MD General Surgery, PGY-3 02/27/2020 7:47 AM Associated attestation - Mario Wayne MD - 02/27/2020 9:10 AM EST I independently saw and evaluated the patient - including reviewing the labs, imaging studies, and available documentation. I agree with the findings and plan of care as documented by the resident/MANAGER PHP/AIRPLANE ELECTRICIAN/PA, unless otherwise noted. Diminishing air leak; continue [...] -Continue H6 care Rodrick Sullivan MD, Pager #[phone] 02/26/2020 at 8:14 AM Associated attestation - Mario Wayne MD - 02/26/2020 11:07 AM EST I independently saw and evaluated the patient - including reviewing the labs, imaging studies, and available documentation. I agree with the findings and plan of care as documented by the resident/MANAGER PHP/AIRPLANE ELECTRICIAN/PA, unless otherwise noted. Please do not hesitate to contact me/us if you have any questions or concerns. Mario Wayne MD FACS * Iqra Gould, OIL DELIVERER - MEDICAL DEVICE ASSEMBLER - 02/25/2020 3:23 PM EST PAGING: The Acute Pain Service providers are available by pager. Please reference [employer] and/or [employer] Phonebook for Pain Management Provider MACHINE ETCHER and direct all questions to the provider [...] failure NAEON, no pages. Upon arrival, patient sleeping. SENIOR SERVICE AIDE was discontinued this morning by primary team and transitioned patient to oral medications. No acute events overnight. Due to the current environment of [place] [address], PPE was worn for the duration of [...] 4000mg 3000mg 2000mg 3,000 mg PRN Dilaudid SENIOR SERVICE AIDE 7.2mg 7.4mg (12h) 9.4mg 8.4 mg SENIOR SERVICE AIDE was discontinued this AM Lorazepam po 0 0.5mg 0 BLOCK: Exparel Block Injection date: 02/19 Medication : Bupivacaine liposome injectable suspension Location: Erector Spinae/Serratus Plane Side Effects: Denies nausea, headache, constipation, dysgeusia, pyrexia, hypoesthesia, muscle twitching, vomiting, pruritus, dizziness, hypertension, dyspepsia. Assessment: 1. Acute postsurgical chest pain 2. Opioid naive Pain Management Plan: 1. Hydromorphone SENIOR SERVICE AIDE was discontinued by primary team and PO [...] and/or [employer] Phonebook for Pain Management Provider MACHINE ETCHER and direct all questions to the provider [...] Changing Therapy to duoneb tid * Virgilio Horton, DISINTEGRATOR FEEDER - 02/25/2020 8:47 AM EST Physical Therapy [...] shifts: In: 1261 [P.O.:120; I.V.:1141] Out: 2290 [Urine:2049; Chest Tube:240] No intake/output data recorded. CONSTITUTIONAL: [...] -Follow up surgical pathology -Pain management following, SENIOR SERVICE AIDE discontinued this am, PO meds added -PT/OT -bowel regimen -ASA, plavix restarted -DVT prophylaxis SCDs, lovenox -Continue H6 care Rodrick Sullivan MD, Pager #[phone] 02/25/2020 at 8:03 AM Associated attestation - Mario Wayne MD - 02/25/2020 10:37 AM EST I independently saw and evaluated the patient - including reviewing the labs, imaging studies, and available documentation. I agree with the findings and plan of care as documented by the resident/MANAGER PHP/AIRPLANE ELECTRICIAN/PA, unless otherwise noted. Please do not hesitate to contact me/us if you have any questions or concerns. Mario Wayne MD FACS * Iqra Gould, OIL DELIVERER - MEDICAL DEVICE ASSEMBLER - 02/24/2020 11:01 AM EST PAGING: The Acute Pain Service providers are available by pager. Please reference [employer] and/or [employer] Phonebook for Pain Management Provider MACHINE ETCHER and direct all questions to the provider [...] failure MIGEL, no pages. Upon arrival, patient sitting up in chair. Patient states his pain is being controlled by the SENIOR SERVICE AIDE. Patient does state that every time he looks at food he gets nauseated. Patient continues to have chest tube in place. Avoid IS use per CTS in effort to resolve air leak. Due to the current environment of [place] [address], PPE was worn for the duration of all face to face encounters including but not limited to an N95 in accordance with CDC and hospital guidelines. Pain Severity: Moderate--> controlled on SENIOR SERVICE AIDE Pain Frequency: intermittent Pain Location: chest--> surgical site Pain Radiation: nonradiating Pain Quality: aching, throbbing and tender Adverse effect to opioids: none Sedation score: 1: Awake and alert Timing: Intermittent Onset: : Post surgical. Aggravating Factors: Coughing Alleviating Factors: SENIOR SERVICE AIDE Bowel status: LBM 02/19 Social History Tobacco [...] 4000mg 3000mg 2000mg 3,000 mg PRN Dilaudid SENIOR SERVICE AIDE 7.2mg 7.4mg (12h) 9.4mg 8.4 mg Lorazepam po 0 0.5mg 0 BLOCK: Exparel Block Injection date: 02/19 Medication : Bupivacaine liposome injectable suspension Location: Erector Spinae/Serratus Plane Side Effects: Denies nausea, headache, constipation, dysgeusia, pyrexia, hypoesthesia, muscle twitching, vomiting, pruritus, dizziness, hypertension, dyspepsia. Assessment: 1. Acute postsurgical chest pain 2. Opioid naive Pain Management Plan: Continue SENIOR SERVICE AIDE today. CT x 2 remain with air leak. Avoid IS use per CTS. Heimlich valve, talc pleurodesis possible over the weekend per CTS. Hydromorphone SENIOR SERVICE AIDE. D/c all other narcotics. SENIOR SERVICE AIDE dose: 0.2 mg Lockout interval: 6 mintues [...] available by pager. Please reference [employer] and/or [employer] Phonebook for Pain Management Provider MACHINE ETCHER and direct all questions to the provider listed. * Rodrick Sullivan MD - 02/24/2020 9:54 AM EST Cardiothoracic Surgery Progress Note PATIENT NAME: Oswaldo Corley TODAY'S DATE: 02/24/2020 SUBJECTIVE: POD#4 Indwelling suazo placed yesterday for urinary retention. Resting comfortably in bed this am. Pain controlled with SENIOR SERVICE AIDE. Intermittent nausea yesterday, no vomiting, fevers, chills. [...] up surgical pathology -Pain management consulted for SENIOR SERVICE AIDE -PT/OT -bowel regimen -ASA, plavix restarted -DVT prophylaxis SCDs, lovenox -Continue H6 care Rodrick Sullivan MD, Pager #[phone] 02/24/2020 at 9:54 AM Associated attestation - Mario Wayne MD - 02/24/2020 12:13 PM EST I independently saw and evaluated the patient - including reviewing the labs, imaging studies, and available documentation. I agree with the findings and plan of care as documented by the resident/MANAGER PHP/AIRPLANE ELECTRICIAN/PA, unless otherwise noted. Please do not hesitate to contact me/us if you have any questions or concerns. Mario Wayne MD FACS * Yong Lipscomb, PT - 02/24/2020 9:25 AM EST Physical Therapy Facility/Department: [facility] Initial Assessment NAME: Oswaldo [...] Left lower lobe. Pt with 4L O2, SENIOR SERVICE AIDE, non-rebreather, two chest tubes to continuous suction, [...] couch a lot. Pt can drive. 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 [...] chair, Call light within reach AM-PAC Score AM[facility] Inpatient Mobility Raw Score : 16 (02/24/20918) AM-PAC Inpatient T-Scale Score : 40.78 (02/24/20918) Mobility Inpatient CMS 0-100% Score: 54.16 (02/24/20918) Mobility Inpatient CMS G-Code Modifier : CK (02/24/20918) Goals Short [...] Plan of Care supervision is transferred to [facility] Rehab Department Physical Therapist. PT wore N95 mask, goggles, and gloves throughout entire session with patient. Yong Lipscomb, PT * Darleen Platt RN - 02/23/2020 12:[address] Albright aware of CXR results will be up to see the patient. Darleen Merino RN - 02/23/2020 11:58 AM EST 14FR Cauda inserted urology notifed * Darleen Platt RN - 02/23/2020 11:[address] Ortega gave order for cxr due to increased bubbling in the chambers and sob, also notified Dr Albright who is engine repairer production Darleen Merino RN - 02/23/2020 10:42 AM EST Urology notified of unable to insert catheter, instructed to use a smaller catheter 14 fr, urology would be over to see him as soon as they can. Patient continues with crepitus the left upper chest, increased bubbling in the water chambers, Dr Sullivan notified, waiting on urology cart for 14Fr. catheter. Was instructed to notify engine repairer production resident. * Darleen Platt RN - 02/23/2020 10:07 AM EST Went to insert the suazo per order due to no void and 554 cc in bladder, ureteral opening met with resistance, unable to insert into the opening of the urethral, another nurse present and attempted with same outcome, gen surgery notified Dr Sullivan and urology paged. Rodrick Leon MD - 02/23/2020 9:20 AM EST Cardiothoracic Surgery Progress Note PATIENT NAME: Oswaldo Corley TODAY'S DATE: 02/23/2020 SUBJECTIVE: POD#3 Required straight cath x1 overnight due to urinary retention. Resting comfortably in bed this am. Pain controlled with SENIOR SERVICE AIDE. No nausea, vomiting, fevers, chills. Tolerating diet. [...] up surgical pathology -Pain management consulted for SENIOR SERVICE AIDE -PT/OT -bowel regimen -ASA, plavix restarted -DVT prophylaxis SCDs, lovenox -Continue H6 care Rodrick Sullivan MD, Pager #[phone] 02/23/2020 at 9:20 AM Associated attestation - Mario Wayne MD - 02/23/2020 10:20 AM EST I independently saw and evaluated the patient - including reviewing the labs, imaging studies, and available documentation. I agree with the findings and plan of care as documented by the resident/MANAGER PHP/AIRPLANE ELECTRICIAN/PA, unless otherwise noted. If the air leak [...] to have a straight cath in the system sales consultant. Bladder scan volume showed >700. Dr. Caballero paged. Order for a one time straight cath received. 675cc clear yellow urine returned. Post straight cath bladder scan showed 0cc remaining. Dr. Caballero also notified that patient was positive for crepitus on left chest going down to chest tube incision site. No new orders placed. * Fiorella Lanza, OIL DELIVERER - MEDICAL DEVICE ASSEMBLER - 02/22/2020 9:05 AM EST PAGING: The Acute Pain Service providers are available by pager. Please reference [employer] and/or [facility] [employer] Phonebook for Pain Management Provider MACHINE ETCHER and direct all questions to the provider [...] sleep. Pt feels well, pain controlled with SENIOR SERVICE AIDE. Pt talkative and cooperative throughout exam, happy with current pain regimen. Pt educated on SENIOR SERVICE AIDE use, will continue today. CT x 2 remain to suction. Avoid IS use per CTS in effort to resolve air leak. Due to the current environment of [place] [address], PPE was worn for the duration of all face to face encounters including but not limited to an N95 in accordance with CDC and hospital guidelines. Pain Severity: Moderate--> controlled on SENIOR SERVICE AIDE Pain Frequency: intermittent Pain Location: chest--> surgical site Pain Radiation: nonradiating Pain Quality: aching, throbbing and tender Adverse effect to opioids: none Sedation score: 1: Awake and alert Timing: Intermittent Onset: : Post surgical. Aggravating Factors: Coughing Alleviating Factors: SENIOR SERVICE AIDE Bowel status: LBM 02/19 Social History Tobacco [...] 02/20/202002/20 Scheduled APAP 4000mg 3000mg PRN Dilaudid SENIOR SERVICE AIDE 7.2mg 7.4mg (12h) Lorazepam po 0 0.5mg BLOCK: Exparel Block Injection date: 02/19 Medication : Bupivacaine liposome injectable suspension Location: Erector Spinae/Serratus Plane Side Effects: Denies nausea, headache, constipation, dysgeusia, pyrexia, hypoesthesia, muscle twitching, vomiting, pruritus, dizziness, hypertension, dyspepsia. Assessment: 1. Acute postsurgical chest pain 2. Opioid naive Pain Management Plan: Continue SENIOR SERVICE AIDE today. CT x 2 remain with air leak. Avoid IS use per CTS Hydromorphone SENIOR SERVICE AIDE. D/c all other narcotics. SENIOR SERVICE AIDE dose: 0.2 mg Lockout interval: 6 mintues [...] and/or [facility] [employer] for Pain Management Provider MACHINE ETCHER and direct all questions to the provider listed. * Shanique Horn MD - 02/22/2020 8:27 AM EST Cardiothoracic Surgery Progress Note PATIENT NAME: Oswaldo Corley TODAY'S DATE: 02/22/2020 SUBJECTIVE: POD#2 Required straight cath x1 overnight due to urinary retention. Resting comfortably in bed this am. Pain controlled with SENIOR SERVICE AIDE. No nausea, vomiting, fevers, chills. L CT [...] up surgical pathology -Pain management consulted for SENIOR SERVICE AIDE -PT/OT -Holding plavix, aspirin -DVT prophylaxis SCDs, lovenox -Transfer to [address] [place] [address] if beds available Rodrick Sullivan MD, Pager #[phone] 02/22/2020 at 8:27 AM I discussed the [...] loss Estimated Daily Nutrient Needs: Energy (kcal): 2577-9764; Weight Used for Energy Requirements: [place] Protein (g): 97-113; Weight Used for Protein Requirements: [place](1.2-1.5g/kg) Fluid (ml/day): Per MD; Method Used for [...] Usual Body Weight: 198 lb (89.8 kg)(02/15) [place] Body Weight: 178 lbs; % [place] Body Weight 109.6 % BMI: 26.4 BMI [...] Planning: Continue Oral Nutrition Supplement Contact: pager [phone] * Rodrick Sullivan MD - 02/21/2020 8:50 [...] up surgical pathology -Pain management consulted for SENIOR SERVICE AIDE -PT/OT -Holding plavix, aspirin -DVT prophylaxis SCDs, lovenox -Continue ICU care Rodrick Sullivan MD, Pager #[phone] 02/21/2020 at 11:05 AM * Renae Page - 02/20/2020 4:21 PM EST Belongings taken to pt admit room T219 Lorie Benedict [place] * Scar Smith RN - 02/20/2020 2:32 PM EST CXR done * Scar Smith RN - 02/20/2020 2:04 PM EST Christina updated in recovery over phone, given room assignment and pt is stable but being closelymonitored. Nate SOTO notified of chest tube air leaks, states they are aware. 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 Follow up with Dr Calvillo (drum barker operator) in [facility] Case discussed with patient. Questions and concerns addressed. * Stalin Parsons MD - 04/07/2020 7:50 AM EST Department of Cardiothoracic Surgery - Progress Note PATIENT NAME: Oswaldo Corley : 1940 ATTENDING PHYSICIAN: Dave Bazan,* ADMIT DATE: 04/05/2020 TODAY'S DATE: 04/07/2020 SUBJECTIVE [...] plan of care as documented by the resident/MANAGER PHP/AIRPLANE ELECTRICIAN/PA, unless otherwise noted. No surgery required. Please [...] oxygen, presented to the emergency room from [facility] for shortness of breath. Patient underwent flexible [...] DISCHARGE MEDICATIONS: Oswaldo Corley Home Medication Instructions [facility]:[id number] Printed on:04/07/20 1300 Medication Information albuterol sulfate [...] Complexity: follow up within 7-14 calendar days (73698) [] Severe Complexity: follow up within 7 calendar days (33749) FOLLOW UP TESTING, PENDING RESULTS OR REFERRALS AT TRANSITIONAL CARE VISIT: [] Yes [] No PENDING STUDIES: No DISPOSITION: Home FACILITY/HOME CARE AGENCY NAME: Follow up with Mei Cummins [address] [facility] [address] Schedule an appointment as soon as possible for a visit Dano Wells MD [address] [place] [phone] on INSTRUCTIONS TO MA/SW: Please call [...] 1:55pm History of peripheral arterial disease M 2024 1:55pm COPD (chronic obstructive pulmonary dise [...] Acute lower gastrointestinal bleeding Ap 2024 5:32pm Non-pressure chronic ulcer o f [...] 1:55pm History of peripheral arterial disease M [facility] 2024 1:55pm COPD (chronic obstructive pulmonary dise [...] fat layer exposed August 24, 2024 2:00pm Chief Complaint Admit Date COPD EXACERBATION May 22, 2024 3:1 4pm [...] am wound August 24, 2024 2:00 pm wound September 07, 2024 5:38p m wound September 14, 2024 3:00 pm cough September 17, 2024 10:4 9am Reason for Visit Admit Date Chronic respiratory failure with hypoxia and hypercapnia May 22, 2024 3:14pm Acidosis, lactic May 22, 2024 3:1 4pm Acute exacerbation of chronic obstructiv e pulmonary disease May 22, 2024 3:14pm ABLA (acute blood [...] fat layer exposed August 24, 2024 2:00pm BPH (benign prostatic hyperplasia) September 14, 2024 3:00pm CAD (coronary artery disease) September 14, 2024 3:00pm Coronary artery disease September 14, 2024 3:00pm Debility September 14, 2024 3:00 pm Depression September 14, 2024 3:00 pm TOLENTINO (dyspnea on exertion) September 14 3:00pm History of coronary artery disease September 14, 2024 3:00pm History of lung cancer September 14, 2024 3 :00pm 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 September 14, 2024 3:00pm Other specified peripheral vascular dise ases September 14, 2024 3:00pm COPD (chronic obstructive pulmonary dise ase) September 14, 2024 3:00pm HLD (hyperlipidemia) September 14, 2024 3:0 0pm 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 September 14, 2024 3:00pm 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 layer exposed September 14, 2024 3:00pm Prostate CA September 14, 2024 3:00 pm Stage 3 severe COPD by GOLD classificati on September 14, 2024 3:00pm Chief Complaint Admit Date LOWER GI BLEED June 03, 2024 5:32 [...] am wound August 24, 2024 2:00 pm wound September 07, 2024 5:38p m cough September 17, 2024 10:4 9am wound September 28, 2024 2:45 pm ER FU September 29, 2024 1:18 pm Reason for Visit Admit Date ABLA (acute blood loss anemia) May 5:32pm [...] fat layer exposed August 24, 2024 2:00pm BPH (benign prostatic hyperplasia) September 28, 2024 2:45pm CAD (coronary artery disease) September 28, 2024 2:45pm Coronary artery disease September 28, 2024 2:45pm Debility September 28, 2024 2:45 pm Depression September 28, 2024 2:45 pm TOLENTINO (dyspnea on exertion) September 28 2:45pm History of coronary artery disease September 28, 2024 2:45pm History of lung cancer September 28, 2024 2 :45pm 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 September 28, 2024 2:45pm Other specified peripheral vascular dise ases September 28, 2024 2:45pm COPD (chronic obstructive pulmonary dise ase) September 28, 2024 2:45pm HLD (hyperlipidemia) September 28, 2024 2:4 5pm 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 September 28, 2024 2:45pm 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 layer exposed September 28, 2024 2:45pm Prostate CA September 28, 2024 2:45 pm Stage 3 severe COPD by GOLD classificati on September 28, 2024 2:45pm Anemia September 29, 2024 1:18 pm Angiodysplasia of gastrointestinal tract September 29, 2024 1:18pm Medications Administered Section Inactive Administered Medications - up to 3 most recent administrations Medication Order MAR Action Action Date Dose Rate Site regadenoson 0.4 mg injection (LEXISCAN) 0.4 mg, INTRAVENOUS, ONCE, 1 dose, On Thu04/24/22 at 1230, Give 0.4 mg (5 mL) [...] dose, Starting on Thu04/15/22 at 1606, Until Thu04/24/22 at 0751, Per Protocol - for use [...] section and content) DATE CREATED AUTHOR 08/20/2017 [facility] DATE CREATED AUTHOR AUTHOR'S ORGANIZ ATION 04/08/2020 [facility] DATE CREATED AUTHOR AUTHOR'S ORGANIZ ATION 08/16/2020 Sys tem DATE CREATED AUTHOR AUTHOR'S ORGANIZ ATION 09/05/2021 [facility] DATE CREATED AUTHOR AUTHOR'S ORGANIZ ATION 05/17/2022 [facility] DATE CREATED AUTHOR AUTHOR'S ORGANIZ ATION 04/05/2023 Sys tem [facility] DATE CREATED AUTHOR AUTHOR'S ORGANIZ ATION 01/02/2024 [facility] DATE CREATED AUTHOR AUTHOR'S ORGANIZ ATION 09/20/2024 [facility] DATE CREATED AUTHOR AUTHOR'S ORGANIZ ATION 10/02/2024 [facility] Ordered Prescriptions (unrec ognized section and [...] Comments Shortness of Breath pt came from [facility] via EMS for left sided hydropneumothorax pt states he was in the hospital 2 weeks ago with two chest tubes on the left side. pt [facility] today for SOB and was brought here. Reason Onset Date Comments Refill Request 05/28/2021 Reason Comments F/U 3 Month Reason Comments Radiology CT Specialty Diagnoses / Procedures Referred By Abby t Referred To Contact CT IMAGING Diagnoses Malignant neoplasm of unspecified part of unspecified bronchus or lung (HCC) Procedures CT CHEST W IVCON DIAGNOSTIC COMPUTED TOMOGRAPHY THORAX W/CONTRAST Salazar Mearz DO [address] [place] [address] Ct Imaging Referral ID Status Reason Start Date Expiration Date V isits Requested Visits Authorized [id number] Closed Auto-Generate d Referral 04/26/2021 05/26/2022 1 [...] W/CONTRAST Salazar Meraz, DO [address] [place] [address] Ct Imaging Referral ID Status Reason Start Date Expiration Date V isits Requested Visits Authorized [id number] Closed Auto-Generate d Referral 07/19/2021 08/18/2022 1 [...] HIGH MDM 60-74 MINUTES Tyrell Vigil, DO [address] [facility] [facility] [address] Referral ID Status Reason Start Date Expiration Date V isits Requested Visits Authorized [id number] Closed PCP Requested Referral 01/21/2022 01/21/2023 1 [...] Ab Calvillo MD [address] [place] [address] [address] Referral ID Status Reason Start Date Expiration Date V isits Requested Visits Authorized [id number] Closed Auto-Generate d Referral 10/13/2022 11/12/2023 1 1 Specialty Diagnoses / Procedures Referred By Contac t Referred To Contact [facility] Diagnoses SOB (shortness of breath) Procedures SPIROMETRY WITH DILATOR IF OBSTRUCTED BRNCDILAT RSPSE SPMTRY PRE&POST-BRNCDILAT ADMN Ab Calvillo MD [address] [place] [address] [address] Referral ID Status Reason Start Date Expiration Date V isits Requested Visits Authorized [id number] Closed Auto-Generate d Referral 10/13/2022 11/12/2023 1 1 Reason Comments New Patient COPD Reason Comments Forms [employer]-RE: Oxygen Reason Comments Orders Specialty Diagnoses / Procedures Referred By Contac t Referred To Contact [facility] Diagnoses Hypoxemia Procedures OXIMETRY WITH AMBULATION NONINVASIVE EAR/PULSE OXIMETRY MULTIPLE DETER Ab Calvillo MD [address] [place] [address] [address] Referral ID Status Reason Start Date Expiration Date V isits Requested Visits Authorized [id number] Closed Auto-Generate d Referral 11/06/2022 12/06/2023 1 [...] THORAX W/CONTRAST Salazar Meraz DO [address] [place] [address] [place] [address] Referral ID Status Reason Start Date Expiration Date V isits Requested Visits Authorized [id number] Closed Auto-Generate d Referral 11/19/2021 12/19/2022 1 [...] THORAX W/CONTRAST Salazar Meraz, DO [address] [place] [address] Ct Imaging [facility] Referral ID Status Reason Start Date Expiration Date V isits Requested Visits Authorized [id number] Closed Auto-Generate d Referral 05/18/2023 06/16/2024 1 1 Reason Onset Date Comments Refill Request 05/24/2023 Reason Onset Date Comments Refill Request 06/03/2023 Reason Comments Radiology Pre Procedure Instructions LEF T lung biopsy Reason Comments Results Referral ID Status Reason Start Date Expiration Date V isits Requested Visits Authorized [id number] Closed Auto-Generate d Referral 06/19/2023 07/18/2024 1 1 Reason Comments Orders Reason Onset Date Comments Refill Request 08/23/2023 Reason Comments Medication Question Reason Onset Date Comments Refill Request 09/19/2023 Reason Comments Cough Reason Comments Cough Chest Congestion Reason Onset Date Comments Transition Of Care 10/01/2023 [facility] d/c Reason Comments Patient Update Lab work Reason Onset Date Comments Refill Request 10/16/[address] [facility] HH-Order Request Reason Comments [facility] question Reason Comments Visit Reason Comments Patient Question Reason Onset Date Comments Refill Request 10/28/2023 Reason Comments OT Plan of Care Reason Comments POC Specialty Diagnoses / Procedures Referred By Contac t Referred To Contact CT IMAGING Diagnoses Squamous carcinoma of lung, left (HCC) Lung nodules Procedures CT CHEST W IVCON DIAGNOSTIC COMPUTED TOMOGRAPHY THORAX W/CONTRAST Masci, Salazar A, DO [address] [place] [address] Ct Imaging [place] [address] Referral ID Status Reason Start Date Expiration Date V isits Requested Visits Authorized [id number] Closed Auto-Generate d Referral 08/24/2023 09/22/2024 1 [...] Comments F/U 6 Month Reason Comments Updated Senior Care Plan of Care Reason Comments Follow Up 3 month follow up Reason Comments Established Patient Pain Ulcer Reason Comments Appointment Specialty Diagnoses / Procedures Referred By Contac t Referred To Contact CT IMAGING Diagnoses Pneumonia of left lung due to infectious organism, unspecified part of lung Procedures CT CHEST WO IVCON DIAGNOSTIC COMPUTED TOMOGRAPHY THORAX W/O CNTRST Kailash Cordova APRN.MEDICAL DEVICE ASSEMBLER [address] [facility] [address] [place] [address] Ct Imaging [place] [address] Referral ID Status Reason Start Date Expiration Date V isits Requested Visits Authorized [id number] Closed Auto-Generate d Referral 01/12/2024 01/06/2025 1 1 Reason Comments Established Patient CT review Reason Comments Home Health orders Specialty Diagnoses / Procedures Referred By Contac t Referred To Contact CT IMAGING Diagnoses Peripheral vascular disease (HCC) Procedures CTA ABD/PEL LOWER EXTREM W IVCON CTA ABDL AORTA&BI ILIOFEM W/CONTRAST&POSTP Tyrell Vigil D, DO [address] [place] [address] Ct Imaging [place] [address] Referral ID Status Reason Start Date Expiration Date V isits Requested Visits Authorized [id number] Closed Auto-Generate d Referral 01/05/2024 02/03/2025 1 1 Reason Onset Date Comments Refill Request 02/12/2024 Reason Comments prison plan of care Reason Onset Date Comments Refill Request 02/28/2024 Reason Comments resume prison Referral ID Status Reason Start Date Expiration Date V isits Requested Visits Authorized [id number] Closed Auto-Generate d Referral 11/22/2023 12/21/2024 1 1 Reason Comments Follow Up Established Patient Ulcer Reason Comments Established Patient 6 month follow up [place] Reason Comments Forms AEP Reason Onset Date Comments Refill Request 04/12/2024 Reason Comments Patient Request Reason Comments Home Health Update Reason Comments Hospital F/U COPD Reason Comments Senior Care Plan of Care Reason Comments Home Health Point of Care Results Reason Onset Date Comments Refill Request 06/08/2024 Reason Comments Non-Chemotherapy Treatment Specialty Diagnoses / Procedures Referred By Contjuice t Referred To Contact Diagnoses 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 Gastrointestinal hemorrhage associated with gastric ulcer Salazar Meraz, DO [address] [place] [address] Phone: tel: fax: Salazar Meraz, DO [address] [place] [address] Phone: tel: fax: Referral ID Status Reason Start Date Expiration Date V isits Requested Visits Authorized [id number] Authorized 06/17/2024 09/15/2024 99 99 Reason Comments [...] or prosecute any alcohol or drug abuse patient.[facility] Hospital[facility] the event this information is protected by the Federal Confidentiality of Alcohol and Drug Abuse Patient Records regulations: The Federal rules restrict any use of the information to criminally investigate or prosecute any alcohol or drug abuse patient.[facility] HospitalIn the event this information is protected by the Federal Confidentiality of Alcohol and Drug Abuse Patient Records regulations: The Federal rules restrict any use of the information to criminally investigate or prosecute any alcohol or drug abuse patient.[facility] HospitalIn the event this information is protected by the Federal Confidentiality of Alcohol and Drug Abuse Patient Records regulations: The Federal rules restrict any use of the information to criminally investigate or prosecute any alcohol or drug abuse patient.[facility] HospitalIn the event this information is protected by the Federal Confidentiality of Alcohol and Drug Abuse Patient Records regulations: The Federal rules restrict any use of the information to criminally investigate or prosecute any alcohol or drug abuse patient.[facility] HospitalIn the event this information is protected by the Federal Confidentiality of Alcohol and Drug Abuse Patient Records regulations: The Federal rules restrict any use of the information to criminally investigate or prosecute any alcohol or drug abuse patient.[facility] HospitalIn the event this information is protected by the Federal Confidentiality of Alcohol and Drug Abuse Patient Records regulations: The Federal rules restrict any use of the information to criminally investigate or prosecute any alcohol or drug abuse patient.[facility] HospitalIn the event this information is protected by the Federal Confidentiality of Alcohol and Drug Abuse Patient Records regulations: The Federal rules restrict any use of the information to criminally investigate or prosecute any alcohol or drug abuse patient.[facility] HospitalIn the event this information is protected by the Federal Confidentiality of Alcohol and Drug Abuse Patient Records regulations: The Federal rules restrict any use of the information to criminally investigate or prosecute any alcohol or drug abuse patient.[facility] HospitalIn the event this information is protected by the Federal Confidentiality of Alcohol and Drug Abuse Patient Records regulations: The Federal rules restrict any use of the information to criminally investigate or prosecute any alcohol or drug abuse patient.[facility] the event this information is protected by the Federal Confidentiality of Alcohol and Drug Abuse Patient Records regulations: The Federal rules restrict any use of the information to criminally investigate or prosecute any alcohol or drug abuse patient.[facility] HospitalIn the event this information is protected by the Federal Confidentiality of Alcohol and Drug Abuse Patient Records regulations: The Federal rules restrict any use of the information to criminally investigate or prosecute any alcohol or drug abuse patient.[facility] HospitalIn the event this information is protected [...] or prosecute any alcohol or drug abuse patient.[facility] HospitalIn the event this information is protected by the Federal Confidentiality of Alcohol and Drug Abuse Patient Records regulations: The Federal rules restrict any use of the information to criminally investigate or prosecute any alcohol or drug abuse patient.[facility] HospitalIn the event this information is protected by the Federal Confidentiality of Alcohol and Drug Abuse Patient Records regulations: The Federal rules restrict any use of the information to criminally investigate or prosecute any alcohol or drug abuse patient.[facility] HospitalIn the event this information is protected by the Federal Confidentiality of Alcohol and Drug Abuse Patient Records regulations: The Federal rules restrict any use of the information to criminally investigate or prosecute any alcohol or drug abuse patient.[facility] HospitalIn the event this information is protected by the Federal Confidentiality of Alcohol and Drug Abuse Patient Records regulations: The Federal rules restrict any use of the information to criminally investigate or prosecute any alcohol or drug abuse patient.[facility] HospitalIn the event this information is protected by the Federal Confidentiality of Alcohol and Drug Abuse Patient Records regulations: The Federal rules restrict any use of the information to criminally investigate or prosecute any alcohol or drug abuse patient.[facility] HospitalIn the event this information is protected by the Federal Confidentiality of Alcohol and Drug Abuse Patient Records regulations: The Federal rules restrict any use of the information to criminally investigate or prosecute any alcohol or drug abuse patient.[facility] HospitalIn the event this information is protected by the Federal Confidentiality of Alcohol and Drug Abuse Patient Records regulations: The Federal rules restrict any use of the information to criminally investigate or prosecute any alcohol or drug abuse patient.[facility] HospitalIn the event this information is protected by the Federal Confidentiality of Alcohol and Drug Abuse Patient Records regulations: The Federal rules restrict any use of the information to criminally investigate or prosecute any alcohol or drug abuse patient.[facility] HospitalIn the event this information is protected by the Federal Confidentiality of Alcohol and Drug Abuse Patient Records regulations: The Federal rules restrict any use of the information to criminally investigate or prosecute any alcohol or drug abuse patient.[facility] HospitalIn the event this information is protected by the Federal Confidentiality of Alcohol and Drug Abuse Patient Records regulations: The Federal rules restrict any use of the information to criminally investigate or prosecute any alcohol or drug abuse patient.[facility] HospitalIn the event this information is protected by the Federal Confidentiality of Alcohol and Drug Abuse Patient Records regulations: The Federal rules restrict any use of the information to criminally investigate or prosecute any alcohol or drug abuse patient.[facility] HospitalIn the event this information is protected by the Federal Confidentiality of Alcohol and Drug Abuse Patient Records regulations: The Federal rules restrict any use of the information to criminally investigate or prosecute any alcohol or drug abuse patient.[facility] HospitalIn the event this information is protected by the Federal Confidentiality of Alcohol and Drug Abuse Patient Records regulations: The Federal rules restrict any use of the information to criminally investigate or prosecute any alcohol or drug abuse patient.[facility] HospitalIn the event this information is protected by the Federal Confidentiality of Alcohol and Drug Abuse Patient Records regulations: The Federal rules restrict any use of the information to criminally investigate or prosecute any alcohol or drug abuse patient.[facility] HospitalIn the event this information is protected by the Federal Confidentiality of Alcohol and Drug Abuse Patient Records regulations: The Federal rules restrict any use of the information to criminally investigate or prosecute any alcohol or drug abuse patient.[facility] HospitalIn the event this information is protected by the Federal Confidentiality of Alcohol and Drug Abuse Patient Records regulations: The Federal rules restrict any use of the information to criminally investigate or prosecute any alcohol or drug abuse patient.[facility] HospitalIn the event this information is protected by the Federal Confidentiality of Alcohol and Drug Abuse Patient Records regulations: The Federal rules restrict any use of the information to criminally investigate or prosecute any alcohol or drug abuse patient.[facility] HospitalIn the event this information is protected by the Federal Confidentiality of Alcohol and Drug Abuse Patient Records regulations: The Federal rules restrict any use of the information to criminally investigate or prosecute any alcohol or drug abuse patient.[facility] HospitalIn the event this information is protected by the Federal Confidentiality of Alcohol and Drug Abuse Patient Records regulations: The Federal rules restrict any use of the information to criminally investigate or prosecute any alcohol or drug abuse patient.[facility] HospitalIn the event this information is protected by the Federal Confidentiality of Alcohol and Drug Abuse Patient Records regulations: The Federal rules restrict any use of the information to criminally investigate or prosecute any alcohol or drug abuse patient.[facility] HospitalIn the event this information is protected by the Federal Confidentiality of Alcohol and Drug Abuse Patient Records regulations: The Federal rules restrict any use of the information to criminally investigate or prosecute any alcohol or drug abuse patient.[facility] HospitalIn the event this information is protected by the Federal Confidentiality of Alcohol and Drug Abuse Patient Records regulations: The Federal rules restrict any use of the information to criminally investigate or prosecute any alcohol or drug abuse patient.[facility] HospitalIn the event this information is protected by the Federal Confidentiality of Alcohol and Drug Abuse Patient Records regulations: The Federal rules restrict any use of the information to criminally investigate or prosecute any alcohol or drug abuse patient.[facility] HospitalIn the event this information is protected by the Federal Confidentiality of Alcohol and Drug Abuse Patient Records regulations: The Federal rules restrict any use of the information to criminally investigate or prosecute any alcohol or drug abuse patient.[facility] HospitalIn the event this information is protected by the Federal Confidentiality of Alcohol and Drug Abuse Patient Records regulations: The Federal rules restrict any use of the information to criminally investigate or prosecute any alcohol or drug abuse patient.[facility] HospitalIn the event this information is protected by the Federal Confidentiality of Alcohol and Drug Abuse Patient Records regulations: The Federal rules restrict any use of the information to criminally investigate or prosecute any alcohol or drug abuse patient.[facility] HospitalIn the event this information is protected by the Federal Confidentiality of Alcohol and Drug Abuse Patient Records regulations: The Federal rules restrict any use of the information to criminally investigate or prosecute any alcohol or drug abuse patient.[facility] HospitalIn the event this information is protected by the Federal Confidentiality of Alcohol and Drug Abuse Patient Records regulations: The Federal rules restrict any use of the information to criminally investigate or prosecute any alcohol or drug abuse patient.[facility] HospitalIn the event this information is protected by the Federal Confidentiality of Alcohol and Drug Abuse Patient Records regulations: The Federal rules restrict any use of the information to criminally investigate or prosecute any alcohol or drug abuse patient.[facility] HospitalIn the event this information is protected by the Federal Confidentiality of Alcohol and Drug Abuse Patient Records regulations: The Federal rules restrict any use of the information to criminally investigate or prosecute any alcohol or drug abuse patient.[facility] HospitalIn the event this information is protected by the Federal Confidentiality of Alcohol and Drug Abuse Patient Records regulations: The Federal rules restrict any use of the information to criminally investigate or prosecute any alcohol or drug abuse patient.[facility] HospitalIn the event this information is protected by the Federal Confidentiality of Alcohol and Drug Abuse Patient Records regulations: The Federal rules restrict any use of the information to criminally investigate or prosecute any alcohol or drug abuse patient.[facility] HospitalIn the event this information is protected by the Federal Confidentiality of Alcohol and Drug Abuse Patient Records regulations: The Federal rules restrict any use of the information to criminally investigate or prosecute any alcohol or drug abuse patient.[facility] HospitalIn the event this information is protected by the Federal Confidentiality of Alcohol and Drug Abuse Patient Records regulations: The Federal rules restrict any use of the information to criminally investigate or prosecute any alcohol or drug abuse patient.[facility] HospitalIn the event this information is protected by the Federal Confidentiality of Alcohol and Drug Abuse Patient Records regulations: The Federal rules restrict any use of the information to criminally investigate or prosecute any alcohol or drug abuse patient.[facility] HospitalIn the event this information is protected by the Federal Confidentiality of Alcohol and Drug Abuse Patient Records regulations: The Federal rules restrict any use of the information to criminally investigate or prosecute any alcohol or drug abuse patient.[facility] HospitalIn the event this information is protected by the Federal Confidentiality of Alcohol and Drug Abuse Patient Records regulations: The Federal rules restrict any use of the information to criminally investigate or prosecute any alcohol or drug abuse patient.[facility] HospitalIn the event this information is protected by the Federal Confidentiality of Alcohol and Drug Abuse Patient Records regulations: The Federal rules restrict any use of the information to criminally investigate or prosecute any alcohol or drug abuse patient.[facility] HospitalIn the event this information is protected by the Federal Confidentiality of Alcohol and Drug Abuse Patient Records regulations: The Federal rules restrict any use of the information to criminally investigate or prosecute any alcohol or drug abuse patient.[facility] HospitalIn the event this information is protected by the Federal Confidentiality of Alcohol and Drug Abuse Patient Records regulations: The Federal rules restrict any use of the information to criminally investigate or prosecute any alcohol or drug abuse patient.[facility] HospitalIn the event this information is protected by the Federal Confidentiality of Alcohol and Drug Abuse Patient Records regulations: The Federal rules restrict any use of the information to criminally investigate or prosecute any alcohol or drug abuse patient.[facility] HospitalIn the event this information is protected by the Federal Confidentiality of Alcohol and Drug Abuse Patient Records regulations: The Federal rules restrict any use of the information to criminally investigate or prosecute any alcohol or drug abuse patient.[facility] HospitalIn the event this information is protected by the Federal Confidentiality of Alcohol and Drug Abuse Patient Records regulations: The Federal rules restrict any use of the information to criminally investigate or prosecute any alcohol or drug abuse patient.[facility] HospitalIn the event this information is protected by the Federal Confidentiality of Alcohol and Drug Abuse Patient Records regulations: The Federal rules restrict any use of the information to criminally investigate or prosecute any alcohol or drug abuse patient.[facility] HospitalIn the event this information is protected by the Federal Confidentiality of Alcohol and Drug Abuse Patient Records regulations: The Federal rules restrict any use of the information to criminally investigate or prosecute any alcohol or drug abuse patient.[facility] HospitalIn the event this information is protected by the Federal Confidentiality of Alcohol and Drug Abuse Patient Records regulations: The Federal rules restrict any use of the information to criminally investigate or prosecute any alcohol or drug abuse patient.[facility] the event this information is protected by the Federal Confidentiality of Alcohol and Drug Abuse Patient Records regulations: The Federal rules restrict any use of the information to criminally investigate or prosecute any alcohol or drug abuse patient.[facility] HospitalIn the event this information is protected by the Federal Confidentiality of Alcohol and Drug Abuse Patient Records regulations: The Federal rules restrict any use of the information to criminally investigate or prosecute any alcohol or drug abuse patient.[facility] HospitalIn the event this information is protected [...] or prosecute any alcohol or drug abuse patient.[facility] HospitalIn the event this information is protected by the Federal Confidentiality of Alcohol and Drug Abuse Patient Records regulations: The Federal rules restrict any use of the information to criminally investigate or prosecute any alcohol or drug abuse patient.[facility] HospitalIn the event this information is protected by the Federal Confidentiality of Alcohol and Drug Abuse Patient Records regulations: The Federal rules restrict any use of the information to criminally investigate or prosecute any alcohol or drug abuse patient.[facility] HospitalIn the event this information is protected by the Federal Confidentiality of Alcohol and Drug Abuse Patient Records regulations: The Federal rules restrict any use of the information to criminally investigate or prosecute any alcohol or drug abuse patient.[facility] HospitalIn the event this information is protected by the Federal Confidentiality of Alcohol and Drug Abuse Patient Records regulations: The Federal rules restrict any use of the information to criminally investigate or prosecute any alcohol or drug abuse patient.[facility] HospitalIn the event this information is protected by the Federal Confidentiality of Alcohol and Drug Abuse Patient Records regulations: The Federal rules restrict any use of the information to criminally investigate or prosecute any alcohol or drug abuse patient.[facility] HospitalIn the event this information is protected by the Federal Confidentiality of Alcohol and Drug Abuse Patient Records regulations: The Federal rules restrict any use of the information to criminally investigate or prosecute any alcohol or drug abuse patient.[facility] HospitalIn the event this information is protected by the Federal Confidentiality of Alcohol and Drug Abuse Patient Records regulations: The Federal rules restrict any use of the information to criminally investigate or prosecute any alcohol or drug abuse patient.[facility] HospitalIn the event this information is protected by the Federal Confidentiality of Alcohol and Drug Abuse Patient Records regulations: The Federal rules restrict any use of the information to criminally investigate or prosecute any alcohol or drug abuse patient.[facility] HospitalIn the event this information is protected by the Federal Confidentiality of Alcohol and Drug Abuse Patient Records regulations: The Federal rules restrict any use of the information to criminally investigate or prosecute any alcohol or drug abuse patient.[facility] HospitalIn the event this information is protected by the Federal Confidentiality of Alcohol and Drug Abuse Patient Records regulations: The Federal rules restrict any use of the information to criminally investigate or prosecute any alcohol or drug abuse patient.[facility] HospitalIn the event this information is protected by the Federal Confidentiality of Alcohol and Drug Abuse Patient Records regulations: The Federal rules restrict any use of the information to criminally investigate or prosecute any alcohol or drug abuse patient.[facility] HospitalIn the event this information is protected by the Federal Confidentiality of Alcohol and Drug Abuse Patient Records regulations: The Federal rules restrict any use of the information to criminally investigate or prosecute any alcohol or drug abuse patient.[facility] HospitalIn the event this information is protected by the Federal Confidentiality of Alcohol and Drug Abuse Patient Records regulations: The Federal rules restrict any use of the information to criminally investigate or prosecute any alcohol or drug abuse patient.[facility] HospitalIn the event this information is protected by the Federal Confidentiality of Alcohol and Drug Abuse Patient Records regulations: The Federal rules restrict any use of the information to criminally investigate or prosecute any alcohol or drug abuse patient.[facility] HospitalIn the event this information is protected by the Federal Confidentiality of Alcohol and Drug Abuse Patient Records regulations: The Federal rules restrict any use of the information to criminally investigate or prosecute any alcohol or drug abuse patient.[facility] HospitalIn the event this information is protected by the Federal Confidentiality of Alcohol and Drug Abuse Patient Records regulations: The Federal rules restrict any use of the information to criminally investigate or prosecute any alcohol or drug abuse patient.[facility] HospitalIn the event this information is protected by the Federal Confidentiality of Alcohol and Drug Abuse Patient Records regulations: The Federal rules restrict any use of the information to criminally investigate or prosecute any alcohol or drug abuse patient.[facility] HospitalIn the event this information is protected by the Federal Confidentiality of Alcohol and Drug Abuse Patient Records regulations: The Federal rules restrict any use of the information to criminally investigate or prosecute any alcohol or drug abuse patient.[facility] HospitalIn the event this information is protected by the Federal Confidentiality of Alcohol and Drug Abuse Patient Records regulations: The Federal rules restrict any use of the information to criminally investigate or prosecute any alcohol or drug abuse patient.[facility] HospitalIn the event this information is protected by the Federal Confidentiality of Alcohol and Drug Abuse Patient Records regulations: The Federal rules restrict any use of the information to criminally investigate or prosecute any alcohol or drug abuse patient.[facility] HospitalIn the event this information is protected by the Federal Confidentiality of Alcohol and Drug Abuse Patient Records regulations: The Federal rules restrict any use of the information to criminally investigate or prosecute any alcohol or drug abuse patient.[facility] HospitalIn the event this information is protected by the Federal Confidentiality of Alcohol and Drug Abuse Patient Records regulations: The Federal rules restrict any use of the information to criminally investigate or prosecute any alcohol or drug abuse patient.[facility] HospitalIn the event this information is protected by the Federal Confidentiality of Alcohol and Drug Abuse Patient Records regulations: The Federal rules restrict any use of the information to criminally investigate or prosecute any alcohol or drug abuse patient.[facility] HospitalIn the event this information is protected by the Federal Confidentiality of Alcohol and Drug Abuse Patient Records regulations: The Federal rules restrict any use of the information to criminally investigate or prosecute any alcohol or drug abuse patient.[facility] HospitalIn the event this information is protected by the Federal Confidentiality of Alcohol and Drug Abuse Patient Records regulations: The Federal rules restrict any use of the information to criminally investigate or prosecute any alcohol or drug abuse patient.[facility] HospitalIn the event this information is protected by the Federal Confidentiality of Alcohol and Drug Abuse Patient Records regulations: The Federal rules restrict any use of the information to criminally investigate or prosecute any alcohol or drug abuse patient.[facility] HospitalIn the event this information is protected by the Federal Confidentiality of Alcohol and Drug Abuse Patient Records regulations: The Federal rules restrict any use of the information to criminally investigate or prosecute any alcohol or drug abuse patient.[facility] HospitalIn the event this information is protected by the Federal Confidentiality of Alcohol and Drug Abuse Patient Records regulations: The Federal rules restrict any use of the information to criminally investigate or prosecute any alcohol or drug abuse patient.[facility] HospitalIn the event this information is protected by the Federal Confidentiality of Alcohol and Drug Abuse Patient Records regulations: The Federal rules restrict any use of the information to criminally investigate or prosecute any alcohol or drug abuse patient.[facility] HospitalIn the event this information is protected by the Federal Confidentiality of Alcohol and Drug Abuse Patient Records regulations: The Federal rules restrict any use of the information to criminally investigate or prosecute any alcohol or drug abuse patient.[facility] HospitalIn the event this information is protected by the Federal Confidentiality of Alcohol and Drug Abuse Patient Records regulations: The Federal rules restrict any use of the information to criminally investigate or prosecute any alcohol or drug abuse patient.[facility] HospitalIn the event this information is protected by the Federal Confidentiality of Alcohol and Drug Abuse Patient Records regulations: The Federal rules restrict any use of the information to criminally investigate or prosecute any alcohol or drug abuse patient.[facility] HospitalIn the event this information is protected by the Federal Confidentiality of Alcohol and Drug Abuse Patient Records regulations: The Federal rules restrict any use of the information to criminally investigate or prosecute any alcohol or drug abuse patient.[facility] HospitalIn the event this information is protected by the Federal Confidentiality of Alcohol and Drug Abuse Patient Records regulations: The Federal rules restrict any use of the information to criminally investigate or prosecute any alcohol or drug abuse patient.[facility] HospitalIn the event this information is protected by the Federal Confidentiality of Alcohol and Drug Abuse Patient Records regulations: The Federal rules restrict any use of the information to criminally investigate or prosecute any alcohol or drug abuse patient.[facility] HospitalIn the event this information is protected by the Federal Confidentiality of Alcohol and Drug Abuse Patient Records regulations: The Federal rules restrict any use of the information to criminally investigate or prosecute any alcohol or drug abuse patient.[facility] HospitalIn the event this information is protected by the Federal Confidentiality of Alcohol and Drug Abuse Patient Records regulations: The Federal rules restrict any use of the information to criminally investigate or prosecute any alcohol or drug abuse patient.[facility] HospitalIn the event this information is protected by the Federal Confidentiality of Alcohol and Drug Abuse Patient Records regulations: The Federal rules restrict any use of the information to criminally investigate or prosecute any alcohol or drug abuse patient.[facility] HospitalIn the event this information is protected by the Federal Confidentiality of Alcohol and Drug Abuse Patient Records regulations: The Federal rules restrict any use of the information to criminally investigate or prosecute any alcohol or drug abuse patient.[facility] HospitalIn the event this information is protected by the Federal Confidentiality of Alcohol and Drug Abuse Patient Records regulations: The Federal rules restrict any use of the information to criminally investigate or prosecute any alcohol or drug abuse patient.[facility] HospitalIn the event this information is protected by the Federal Confidentiality of Alcohol and Drug Abuse Patient Records regulations: The Federal rules restrict any use of the information to criminally investigate or prosecute any alcohol or drug abuse patient.[facility] HospitalIn the event this information is protected by the Federal Confidentiality of Alcohol and Drug Abuse Patient Records regulations: The Federal rules restrict any use of the information to criminally investigate or prosecute any alcohol or drug abuse patient.[facility] HospitalIn the event this information is protected by the Federal Confidentiality of Alcohol and Drug Abuse Patient Records regulations: The Federal rules restrict any use of the information to criminally investigate or prosecute any alcohol or drug abuse patient.[facility] HospitalIn the event this information is protected by the Federal Confidentiality of Alcohol and Drug Abuse Patient Records regulations: The Federal rules restrict any use of the information to criminally investigate or prosecute any alcohol or drug abuse patient.[facility] HospitalIn the event this information is protected by the Federal Confidentiality of Alcohol and Drug Abuse Patient Records regulations: The Federal rules restrict any use of the information to criminally investigate or prosecute any alcohol or drug abuse patient.[facility] HospitalIn the event this information is protected by the Federal Confidentiality of Alcohol and Drug Abuse Patient Records regulations: The Federal rules restrict any use of the information to criminally investigate or prosecute any alcohol or drug abuse patient.[facility] the event this information is protected by the Federal Confidentiality of Alcohol and Drug Abuse Patient Records regulations: The Federal rules restrict any use of the information to criminally investigate or prosecute any alcohol or drug abuse patient.[facility] HospitalIn the event this information is protected by the Federal Confidentiality of Alcohol and Drug Abuse Patient Records regulations: The Federal rules restrict any use of the information to criminally investigate or prosecute any alcohol or drug abuse patient.[facility] HospitalIn the event this information is protected [...] or prosecute any alcohol or drug abuse patient.[facility] HospitalIn the event this information is protected by the Federal Confidentiality of Alcohol and Drug Abuse Patient Records regulations: The Federal rules restrict any use of the information to criminally investigate or prosecute any alcohol or drug abuse patient.[facility] HospitalIn the event this information is protected by the Federal Confidentiality of Alcohol and Drug Abuse Patient Records regulations: The Federal rules restrict any use of the information to criminally investigate or prosecute any alcohol or drug abuse patient.[facility] HospitalIn the event this information is protected by the Federal Confidentiality of Alcohol and Drug Abuse Patient Records regulations: The Federal rules restrict any use of the information to criminally investigate or prosecute any alcohol or drug abuse patient.[facility] HospitalIn the event this information is protected by the Federal Confidentiality of Alcohol and Drug Abuse Patient Records regulations: The Federal rules restrict any use of the information to criminally investigate or prosecute any alcohol or drug abuse patient.[facility] HospitalIn the event this information is protected by the Federal Confidentiality of Alcohol and Drug Abuse Patient Records regulations: The Federal rules restrict any use of the information to criminally investigate or prosecute any alcohol or drug abuse patient.[facility] HospitalIn the event this information is protected by the Federal Confidentiality of Alcohol and Drug Abuse Patient Records regulations: The Federal rules restrict any use of the information to criminally investigate or prosecute any alcohol or drug abuse patient.[facility] HospitalIn the event this information is protected by the Federal Confidentiality of Alcohol and Drug Abuse Patient Records regulations: The Federal rules restrict any use of the information to criminally investigate or prosecute any alcohol or drug abuse patient.[facility] HospitalIn the event this information is protected by the Federal Confidentiality of Alcohol and Drug Abuse Patient Records regulations: The Federal rules restrict any use of the information to criminally investigate or prosecute any alcohol or drug abuse patient.[facility] HospitalIn the event this information is protected by the Federal Confidentiality of Alcohol and Drug Abuse Patient Records regulations: The Federal rules restrict any use of the information to criminally investigate or prosecute any alcohol or drug abuse patient.[facility] HospitalIn the event this information is protected by the Federal Confidentiality of Alcohol and Drug Abuse Patient Records regulations: The Federal rules restrict any use of the information to criminally investigate or prosecute any alcohol or drug abuse patient.[facility] HospitalIn the event this information is protected by the Federal Confidentiality of Alcohol and Drug Abuse Patient Records regulations: The Federal rules restrict any use of the information to criminally investigate or prosecute any alcohol or drug abuse patient.[facility] HospitalIn the event this information is protected by the Federal Confidentiality of Alcohol and Drug Abuse Patient Records regulations: The Federal rules restrict any use of the information to criminally investigate or prosecute any alcohol or drug abuse patient.[facility] HospitalIn the event this information is protected by the Federal Confidentiality of Alcohol and Drug Abuse Patient Records regulations: The Federal rules restrict any use of the information to criminally investigate or prosecute any alcohol or drug abuse patient.[facility] HospitalIn the event this information is protected by the Federal Confidentiality of Alcohol and Drug Abuse Patient Records regulations: The Federal rules restrict any use of the information to criminally investigate or prosecute any alcohol or drug abuse patient.[facility] HospitalIn the event this information is protected by the Federal Confidentiality of Alcohol and Drug Abuse Patient Records regulations: The Federal rules restrict any use of the information to criminally investigate or prosecute any alcohol or drug abuse patient.[facility] HospitalIn the event this information is protected by the Federal Confidentiality of Alcohol and Drug Abuse Patient Records regulations: The Federal rules restrict any use of the information to criminally investigate or prosecute any alcohol or drug abuse patient.[facility] HospitalIn the event this information is protected by the Federal Confidentiality of Alcohol and Drug Abuse Patient Records regulations: The Federal rules restrict any use of the information to criminally investigate or prosecute any alcohol or drug abuse patient.[facility] HospitalIn the event this information is protected by the Federal Confidentiality of Alcohol and Drug Abuse Patient Records regulations: The Federal rules restrict any use of the information to criminally investigate or prosecute any alcohol or drug abuse patient.[facility] HospitalIn the event this information is protected by the Federal Confidentiality of Alcohol and Drug Abuse Patient Records regulations: The Federal rules restrict any use of the information to criminally investigate or prosecute any alcohol or drug abuse patient.[facility] HospitalIn the event this information is protected by the Federal Confidentiality of Alcohol and Drug Abuse Patient Records regulations: The Federal rules restrict any use of the information to criminally investigate or prosecute any alcohol or drug abuse patient.[facility] HospitalIn the event this information is protected by the Federal Confidentiality of Alcohol and Drug Abuse Patient Records regulations: The Federal rules restrict any use of the information to criminally investigate or prosecute any alcohol or drug abuse patient.[facility] HospitalIn the event this information is protected by the Federal Confidentiality of Alcohol and Drug Abuse Patient Records regulations: The Federal rules restrict any use of the information to criminally investigate or prosecute any alcohol or drug abuse patient.[facility] HospitalIn the event this information is protected by the Federal Confidentiality of Alcohol and Drug Abuse Patient Records regulations: The Federal rules restrict any use of the information to criminally investigate or prosecute any alcohol or drug abuse patient.[facility] HospitalIn the event this information is protected by the Federal Confidentiality of Alcohol and Drug Abuse Patient Records regulations: The Federal rules restrict any use of the information to criminally investigate or prosecute any alcohol or drug abuse patient.[facility] HospitalIn the event this information is protected by the Federal Confidentiality of Alcohol and Drug Abuse Patient Records regulations: The Federal rules restrict any use of the information to criminally investigate or prosecute any alcohol or drug abuse patient.[facility] HospitalIn the event this information is protected by the Federal Confidentiality of Alcohol and Drug Abuse Patient Records regulations: The Federal rules restrict any use of the information to criminally investigate or prosecute any alcohol or drug abuse patient.[facility] HospitalIn the event this information is protected by the Federal Confidentiality of Alcohol and Drug Abuse Patient Records regulations: The Federal rules restrict any use of the information to criminally investigate or prosecute any alcohol or drug abuse patient.[facility] HospitalIn the event this information is protected by the Federal Confidentiality of Alcohol and Drug Abuse Patient Records regulations: The Federal rules restrict any use of the information to criminally investigate or prosecute any alcohol or drug abuse patient.[facility] HospitalIn the event this information is protected by the Federal Confidentiality of Alcohol and Drug Abuse Patient Records regulations: The Federal rules restrict any use of the information to criminally investigate or prosecute any alcohol or drug abuse patient.[facility] HospitalIn the event this information is protected by the Federal Confidentiality of Alcohol and Drug Abuse Patient Records regulations: The Federal rules restrict any use of the information to criminally investigate or prosecute any alcohol or drug abuse patient.[facility] HospitalIn the event this information is protected by the Federal Confidentiality of Alcohol and Drug Abuse Patient Records regulations: The Federal rules restrict any use of the information to criminally investigate or prosecute any alcohol or drug abuse patient.[facility] HospitalIn the event this information is protected by the Federal Confidentiality of Alcohol and Drug Abuse Patient Records regulations: The Federal rules restrict any use of the information to criminally investigate or prosecute any alcohol or drug abuse patient.[facility] HospitalIn the event this information is protected by the Federal Confidentiality of Alcohol and Drug Abuse Patient Records regulations: The Federal rules restrict any use of the information to criminally investigate or prosecute any alcohol or drug abuse patient.[facility] HospitalIn the event this information is protected by the Federal Confidentiality of Alcohol and Drug Abuse Patient Records regulations: The Federal rules restrict any use of the information to criminally investigate or prosecute any alcohol or drug abuse patient.[facility] HospitalIn the event this information is protected by the Federal Confidentiality of Alcohol and Drug Abuse Patient Records regulations: The Federal rules restrict any use of the information to criminally investigate or prosecute any alcohol or drug abuse patient.[facility] HospitalIn the event this information is protected by the Federal Confidentiality of Alcohol and Drug Abuse Patient Records regulations: The Federal rules restrict any use of the information to criminally investigate or prosecute any alcohol or drug abuse patient.[facility] HospitalIn the event this information is protected by the Federal Confidentiality of Alcohol and Drug Abuse Patient Records regulations: The Federal rules restrict any use of the information to criminally investigate or prosecute any alcohol or drug abuse patient.[facility] HospitalIn the event this information is protected by the Federal Confidentiality of Alcohol and Drug Abuse Patient Records regulations: The Federal rules restrict any use of the information to criminally investigate or prosecute any alcohol or drug abuse patient.[facility] HospitalIn the event this information is protected by the Federal Confidentiality of Alcohol and Drug Abuse Patient Records regulations: The Federal rules restrict any use of the information to criminally investigate or prosecute any alcohol or drug abuse patient.[facility] HospitalIn the event this information is protected by the Federal Confidentiality of Alcohol and Drug Abuse Patient Records regulations: The Federal rules restrict any use of the information to criminally investigate or prosecute any alcohol or drug abuse patient.[facility] HospitalIn the event this information is protected by the Federal Confidentiality of Alcohol and Drug Abuse Patient Records regulations: The Federal rules restrict any use of the information to criminally investigate or prosecute any alcohol or drug abuse patient.[facility] HospitalIn the event this information is protected by the Federal Confidentiality of Alcohol and Drug Abuse Patient Records regulations: The Federal rules restrict any use of the information to criminally investigate or prosecute any alcohol or drug abuse patient.[facility] HospitalIn the event this information is protected by the Federal Confidentiality of Alcohol and Drug Abuse Patient Records regulations: The Federal rules restrict any use of the information to criminally investigate or prosecute any alcohol or drug abuse patient.[facility] HospitalIn the event this information is protected by the Federal Confidentiality of Alcohol and Drug Abuse Patient Records regulations: The Federal rules restrict any use of the information to criminally investigate or prosecute any alcohol or drug abuse patient.[facility] HospitalIn the event this information is protected by the Federal Confidentiality of Alcohol and Drug Abuse Patient Records regulations: The Federal rules restrict any use of the information to criminally investigate or prosecute any alcohol or drug abuse patient.[facility] HospitalIn the event this information is protected by the Federal Confidentiality of Alcohol and Drug Abuse Patient Records regulations: The Federal rules restrict any use of the information to criminally investigate or prosecute any alcohol or drug abuse patient.[facility] the event this information is protected by the Federal Confidentiality of Alcohol and Drug Abuse Patient Records regulations: The Federal rules restrict any use of the information to criminally investigate or prosecute any alcohol or drug abuse patient.[facility] HospitalIn the event this information is protected by the Federal Confidentiality of Alcohol and Drug Abuse Patient Records regulations: The Federal rules restrict any use of the information to criminally investigate or prosecute any alcohol or drug abuse patient.[facility] HospitalIn the event this information is protected [...] or prosecute any alcohol or drug abuse patient.[facility] HospitalIn the event this information is protected by the Federal Confidentiality of Alcohol and Drug Abuse Patient Records regulations: The Federal rules restrict any use of the information to criminally investigate or prosecute any alcohol or drug abuse patient.[facility] HospitalIn the event this information is protected by the Federal Confidentiality of Alcohol and Drug Abuse Patient Records regulations: The Federal rules restrict any use of the information to criminally investigate or prosecute any alcohol or drug abuse patient.[facility] HospitalIn the event this information is protected by the Federal Confidentiality of Alcohol and Drug Abuse Patient Records regulations: The Federal rules restrict any use of the information to criminally investigate or prosecute any alcohol or drug abuse patient.[facility] HospitalIn the event this information is protected by the Federal Confidentiality of Alcohol and Drug Abuse Patient Records regulations: The Federal rules restrict any use of the information to criminally investigate or prosecute any alcohol or drug abuse patient.[facility] HospitalIn the event this information is protected by the Federal Confidentiality of Alcohol and Drug Abuse Patient Records regulations: The Federal rules restrict any use of the information to criminally investigate or prosecute any alcohol or drug abuse patient.[facility] HospitalIn the event this information is protected by the Federal Confidentiality of Alcohol and Drug Abuse Patient Records regulations: The Federal rules restrict any use of the information to criminally investigate or prosecute any alcohol or drug abuse patient.[facility] HospitalIn the event this information is protected by the Federal Confidentiality of Alcohol and Drug Abuse Patient Records regulations: The Federal rules restrict any use of the information to criminally investigate or prosecute any alcohol or drug abuse patient.[facility] HospitalIn the event this information is protected by the Federal Confidentiality of Alcohol and Drug Abuse Patient Records regulations: The Federal rules restrict any use of the information to criminally investigate or prosecute any alcohol or drug abuse patient.[facility] HospitalIn the event this information is protected by the Federal Confidentiality of Alcohol and Drug Abuse Patient Records regulations: The Federal rules restrict any use of the information to criminally investigate or prosecute any alcohol or drug abuse patient.[facility] HospitalIn the event this information is protected by the Federal Confidentiality of Alcohol and Drug Abuse Patient Records regulations: The Federal rules restrict any use of the information to criminally investigate or prosecute any alcohol or drug abuse patient.[facility] HospitalIn the event this information is protected by the Federal Confidentiality of Alcohol and Drug Abuse Patient Records regulations: The Federal rules restrict any use of the information to criminally investigate or prosecute any alcohol or drug abuse patient.[facility] HospitalIn the event this information is protected by the Federal Confidentiality of Alcohol and Drug Abuse Patient Records regulations: The Federal rules restrict any use of the information to criminally investigate or prosecute any alcohol or drug abuse patient.[facility] HospitalIn the event this information is protected by the Federal Confidentiality of Alcohol and Drug Abuse Patient Records regulations: The Federal rules restrict any use of the information to criminally investigate or prosecute any alcohol or drug abuse patient.[facility] HospitalIn the event this information is protected by the Federal Confidentiality of Alcohol and Drug Abuse Patient Records regulations: The Federal rules restrict any use of the information to criminally investigate or prosecute any alcohol or drug abuse patient.[facility] HospitalIn the event this information is protected by the Federal Confidentiality of Alcohol and Drug Abuse Patient Records regulations: The Federal rules restrict any use of the information to criminally investigate or prosecute any alcohol or drug abuse patient.[facility] HospitalIn the event this information is protected by the Federal Confidentiality of Alcohol and Drug Abuse Patient Records regulations: The Federal rules restrict any use of the information to criminally investigate or prosecute any alcohol or drug abuse patient.[facility] HospitalIn the event this information is protected by the Federal Confidentiality of Alcohol and Drug Abuse Patient Records regulations: The Federal rules restrict any use of the information to criminally investigate or prosecute any alcohol or drug abuse patient.[facility] HospitalIn the event this information is protected by the Federal Confidentiality of Alcohol and Drug Abuse Patient Records regulations: The Federal rules restrict any use of the information to criminally investigate or prosecute any alcohol or drug abuse patient.[facility] HospitalIn the event this information is protected by the Federal Confidentiality of Alcohol and Drug Abuse Patient Records regulations: The Federal rules restrict any use of the information to criminally investigate or prosecute any alcohol or drug abuse patient.[facility] HospitalIn the event this information is protected by the Federal Confidentiality of Alcohol and Drug Abuse Patient Records regulations: The Federal rules restrict any use of the information to criminally investigate or prosecute any alcohol or drug abuse patient.[facility] HospitalIn the event this information is protected by the Federal Confidentiality of Alcohol and Drug Abuse Patient Records regulations: The Federal rules restrict any use of the information to criminally investigate or prosecute any alcohol or drug abuse patient.[facility] HospitalIn the event this information is protected by the Federal Confidentiality of Alcohol and Drug Abuse Patient Records regulations: The Federal rules restrict any use of the information to criminally investigate or prosecute any alcohol or drug abuse patient.[facility] HospitalIn the event this information is protected by the Federal Confidentiality of Alcohol and Drug Abuse Patient Records regulations: The Federal rules restrict any use of the information to criminally investigate or prosecute any alcohol or drug abuse patient.[facility] HospitalIn the event this information is protected by the Federal Confidentiality of Alcohol and Drug Abuse Patient Records regulations: The Federal rules restrict any use of the information to criminally investigate or prosecute any alcohol or drug abuse patient.[facility] HospitalIn the event this information is protected by the Federal Confidentiality of Alcohol and Drug Abuse Patient Records regulations: The Federal rules restrict any use of the information to criminally investigate or prosecute any alcohol or drug abuse patient.[facility] HospitalIn the event this information is protected by the Federal Confidentiality of Alcohol and Drug Abuse Patient Records regulations: The Federal rules restrict any use of the information to criminally investigate or prosecute any alcohol or drug abuse patient.[facility] HospitalIn the event this information is protected by the Federal Confidentiality of Alcohol and Drug Abuse Patient Records regulations: The Federal rules restrict any use of the information to criminally investigate or prosecute any alcohol or drug abuse patient.[facility] HospitalIn the event this information is protected by the Federal Confidentiality of Alcohol and Drug Abuse Patient Records regulations: The Federal rules restrict any use of the information to criminally investigate or prosecute any alcohol or drug abuse patient.[facility] HospitalIn the event this information is protected by the Federal Confidentiality of Alcohol and Drug Abuse Patient Records regulations: The Federal rules restrict any use of the information to criminally investigate or prosecute any alcohol or drug abuse patient.[facility] HospitalIn the event this information is protected by the Federal Confidentiality of Alcohol and Drug Abuse Patient Records regulations: The Federal rules restrict any use of the information to criminally investigate or prosecute any alcohol or drug abuse patient.[facility] HospitalIn the event this information is protected by the Federal Confidentiality of Alcohol and Drug Abuse Patient Records regulations: The Federal rules restrict any use of the information to criminally investigate or prosecute any alcohol or drug abuse patient.[facility] HospitalIn the event this information is protected by the Federal Confidentiality of Alcohol and Drug Abuse Patient Records regulations: The Federal rules restrict any use of the information to criminally investigate or prosecute any alcohol or drug abuse patient.[facility] HospitalIn the event this information is protected by the Federal Confidentiality of Alcohol and Drug Abuse Patient Records regulations: The Federal rules restrict any use of the information to criminally investigate or prosecute any alcohol or drug abuse patient.[facility] HospitalIn the event this information is protected by the Federal Confidentiality of Alcohol and Drug Abuse Patient Records regulations: The Federal rules restrict any use of the information to criminally investigate or prosecute any alcohol or drug abuse patient.[facility] HospitalIn the event this information is protected by the Federal Confidentiality of Alcohol and Drug Abuse Patient Records regulations: The Federal rules restrict any use of the information to criminally investigate or prosecute any alcohol or drug abuse patient.[facility] HospitalIn the event this information is protected by the Federal Confidentiality of Alcohol and Drug Abuse Patient Records regulations: The Federal rules restrict any use of the information to criminally investigate or prosecute any alcohol or drug abuse patient.[facility] HospitalIn the event this information is protected by the Federal Confidentiality of Alcohol and Drug Abuse Patient Records regulations: The Federal rules restrict any use of the information to criminally investigate or prosecute any alcohol or drug abuse patient.[facility] HospitalIn the event this information is protected by the Federal Confidentiality of Alcohol and Drug Abuse Patient Records regulations: The Federal rules restrict any use of the information to criminally investigate or prosecute any alcohol or drug abuse patient.[facility] HospitalIn the event this information is protected by the Federal Confidentiality of Alcohol and Drug Abuse Patient Records regulations: The Federal rules restrict any use of the information to criminally investigate or prosecute any alcohol or drug abuse patient.[facility] HospitalIn the event this information is protected by the Federal Confidentiality of Alcohol and Drug Abuse Patient Records regulations: The Federal rules restrict any use of the information to criminally investigate or prosecute any alcohol or drug abuse patient.[facility] HospitalIn the event this information is protected by the Federal Confidentiality of Alcohol and Drug Abuse Patient Records regulations: The Federal rules restrict any use of the information to criminally investigate or prosecute any alcohol or drug abuse patient.[facility] HospitalIn the event this information is protected by the Federal Confidentiality of Alcohol and Drug Abuse Patient Records regulations: The Federal rules restrict any use of the information to criminally investigate or prosecute any alcohol or drug abuse patient.[facility] HospitalIn the event this information is protected by the Federal Confidentiality of Alcohol and Drug Abuse Patient Records regulations: The Federal rules restrict any use of the information to criminally investigate or prosecute any alcohol or drug abuse patient.[facility] HospitalIn the event this information is protected by the Federal Confidentiality of Alcohol and Drug Abuse Patient Records regulations: The Federal rules restrict any use of the information to criminally investigate or prosecute any alcohol or drug abuse patient.[facility] HospitalIn the event this information is protected by the Federal Confidentiality of Alcohol and Drug Abuse Patient Records regulations: The Federal rules restrict any use of the information to criminally investigate or prosecute any alcohol or drug abuse patient.[facility] HospitalIn the event this information is protected by the Federal Confidentiality of Alcohol and Drug Abuse Patient Records regulations: The Federal rules restrict any use of the information to criminally investigate or prosecute any alcohol or drug abuse patient.[facility] HospitalIn the event this information is protected by the Federal Confidentiality of Alcohol and Drug Abuse Patient Records regulations: The Federal rules restrict any use of the information to criminally investigate or prosecute any alcohol or drug abuse patient.[facility] HospitalIn the event this information is protected by the Federal Confidentiality of Alcohol and Drug Abuse Patient Records regulations: The Federal rules restrict any use of the information to criminally investigate or prosecute any alcohol or drug abuse patient.[facility] HospitalIn the event this information is protected by the Federal Confidentiality of Alcohol and Drug Abuse Patient Records regulations: The Federal rules restrict any use of the information to criminally investigate or prosecute any alcohol or drug abuse patient.[facility] Care Teams (unrecognized sec tion and content) Team Status: Active Member Role Status Dates Dr. Mei Cummins MD Primary Care Provider Active Team Status: Active Member Role Status Dates Dr. Mei Cummins MD Primary Care Provider Active Start: April 13, 2024 Rosa Garcia [employer]PL[employer] ELECT[employer]ICIAN, [employer]PLANE ELECTRICIAN-C Attending Provider Active Start: April 13, 2024 Rosaalee Garcia AIRPLANE ELECTRICIAN, AIRPLANE ELECTRICIAN-C Referring Provider Active Start: April 13, 2024 Rosa Garcia AIRPLANE ELECTRICIAN, AIRPLANE ELECTRICIAN-C Other Provider Active Start: April 13, 2024 Team Status: Inactive Member Role Status Dates Dr. Mei Cummins MD Primary Care Provider Active Start: April 27, 2024 End: April 29, 2024 Rosa Garcia AIRPLANE ELECTRICIAN, AIRPLANE ELECTRICIAN-C Attending Provider Active Start: April 27, 2024 End: April 29, 2024 Dr. Juan Carlos Viveros DPM Referring Provider Active Start: April 27, 2024 End: April 29, 2024 Team Status: Active Member Role Status Dates Dr. Mei Cummins MD Primary Care Provider Active Start: April 27, 2024 Rosa Garcia AIRPLANE ELECTRICIAN, AIRPLANE ELECTRICIAN-C Attending Provider Active Start: April 27, 2024 Rosa Garcia AIRPLANE ELECTRICIAN, AIRPLANE ELECTRICIAN-C Referring Provider Active Start: April 27, 2024 Rosa Garcia AIRPLANE ELECTRICIAN, AIRPLANE ELECTRICIAN-C Other Provider Active Start: April 27, 2024 [...] St art: May 11, 2024 Rosa Garcia AIRPLANE ELECTRICIAN, AIRPLANE ELECTRICIAN-C Attending Provider Active Start: May 11, 2024 Rosa Garcia AIRPLANE ELECTRICIAN, AIRPLANE ELECTRICIAN-C Referring Provider Active Start: May 11, 2024 Team Status: Inactive Member Role Status Dates Dr. Mei Cummins MD Primary Care Provider Active Start: May 22, 2024 End: May 24, 2024 Dr. Randy Londono MD Emergency Provider Active Sta rt: May 22, 2024 End: May 24, 2024 Dr. Jacob Suazo , DO Admit Provider Active Start: May 22, 2024 End: May 24, 2024 Dr. Jacob Suazo , DO Other Provider Active Start: May 22, 2024 End: May 24, 2024 Dr. Malu Steen , DO Attending Provider Active S tart: May 22, 2024 End: May 24, 2024 Dr. Mei Cortes , DO Other Provider Active S tart: May 22, 2024 End: May 24, 2024 Team Status: Active Member Role Status Dates Dr. Mei Cummins MD Primary Care Provider Active Start: May 23, 2024 Dr. Randy Londono MD Emergency Provider Active Sta rt: May 23, 2024 Dr. Jacob Suazo , Admit Provider Active Start: May 23, 2024 Dr. Jacob Suazo , DO Other Provider Active Start: May 23, 2024 Dr. Mei Cortes , DO Attending Provider Active Start: May 23, [...] : May 24, 2024 Dr. Mei Cortes , DO Other [...] July 27, 2024 End: July 30, 2024 Statement Processor Relationship Specialty Start Date End Date Mei Cummins MD [address] [place] [address] PCP - General Family Practice 12/17/16 Anuja Steen MD, [address] [place] [address] Physician Radiation Oncology 01/26/15 Statement Processor Relationship Specialty Start Date End Date Mei Cummins MD [address] [place], [place] [address] PCP - General Family Practice 12/17/16 Anuja Steen MD, [address] [place] [address] Physician Radiation Oncology 01/26/15 Statement Processor Relationship Specialty Start Date End Date Mei Cummins MD [address] [place] [address] PCP - General Family Practice 12/17/16 Anuja Steen MD, [address] [place] [address] Physician Radiation Oncology 01/26/15 Statement Processor Relationship Specialty Start Date End Date Mei Cummins MD [address] [place] [address] PCP - General Family Practice 12/17/16 Anuja Steen MD, [address] [place] [address] Physician Radiation Oncology 01/26/15 Statement Processor Relationship Specialty Start Date End Date Mei Cummins MD [address] [place] [address] PCP - General Family Practice 12/17/16 Anuja Steen MD, [address] [place] [address] Physician Radiation Oncology 01/26/15 Statement Processor Relationship Specialty Start Date End Date Mei Cummins MD [address] [place] [address] PCP - General Family Practice 12/17/16 Anuja Steen MD, [address] [place] [address] Physician Radiation Oncology 01/26/15 Statement Processor Relationship Specialty Start Date End Date Mei Cummins MD [address] [place] [address] PCP - General Family Practice 12/17/16 Anuja Steen MD, [address] [place] [address] Physician Radiation Oncology 01/26/15 Statement Processor Relationship Specialty Start Date End Date Mei Cummins MD [address] [place] [address] PCP - General Family Practice 12/17/16 Anuja Steen MD, [address] [place] [address] Physician Radiation Oncology 01/26/15 Statement Processor Relationship Specialty Start Date End Date Mei Cummins MD [address] [place] [address] PCP - General Family Practice 12/17/16 Anuja Steen MD, [address] [facility] [place] [address] Physician Radiation Oncology 01/26/15 Statement Processor Relationship Specialty Start Date End Date Mei Cummins MD [address] [place] [address] PCP - General Family Practice 12/17/16 Anuja Steen MD, MD [address] [facility] [place] [address] Physician Radiation Oncology 01/26/15 Statement Processor Relationship Specialty Start Date End Date Mei Cummins MD [address] [place] [address] PCP - General Family Medicine 12/17/16 Anuja Steen MD, [address] [place] [address] Physician Radiation Oncology 01/26/15 Statement Processor Relationship Specialty Start Date End Date Mei Cummins MD [address] [facility] [place] [address] PCP - General Family Medicine 12/17/16 Anuja Steen MD, [address] [place] [address] Physician Radiation Oncology 01/26/15 Statement Processor Relationship Specialty Start Date End Date Mei Cummins MD [address] [place] [address] PCP - General Family Medicine 12/17/16 Anuja Steen MD, [address] [place] [address] Physician Radiation Oncology 01/26/15 Statement Processor Relationship Specialty Start Date End Date Mei Cummins MD [address] [place] [address] PCP - General Family Medicine 12/17/16 Anuja Steen MD, [address] [facility] [place] [address] Physician Radiation Oncology 01/26/15 Statement Processor Relationship Specialty Start Date End Date Mei Cummins MD [address] [place] [address] PCP - General Family Medicine 12/17/16 Anuja Steen MD, [address] [place] [address] Physician Radiation Oncology 01/26/15 Statement Processor Relationship Specialty Start Date End Date Mei Cummins MD [address] [place] [address] PCP - General Family Medicine 12/17/16 Anuja Steen MD, [address] [place] [address] Physician Radiation Oncology 01/26/15 Statement Processor Relationship Specialty Start Date End Date Mei Cummins MD [address] [place] [address] PCP - General Family Medicine 12/17/16 Anuja Steen MD, [address] [place] [address] Physician Radiation Oncology 01/26/15 Statement Processor Relationship Specialty Start Date End Date Mei Cummins MD [address] [place] [address] PCP - General Family Medicine 12/17/16 Anuja Steen MD, [address] [place] [address] Physician Radiation Oncology 01/26/15 Statement Processor Relationship Specialty Start Date End Date Mei Cummins MD [address] [place] [address] PCP - General Family Medicine 12/17/16 Anuja Steen MD, [address] [place] [address] Physician Radiation Oncology 01/26/15 Statement Processor Relationship Specialty Start Date End Date Mei Cummins MD [address] [place] [address] PCP - General Family Medicine 12/17/16 Anuja Steen MD, [address] [place] [address] Physician Radiation Oncology 01/26/15 Statement Processor Relationship Specialty Start Date End Date Mei Cummins MD [address] [place] [address] PCP - General Family Medicine 12/17/16 Anuja Steen MD, [address] [place] [address] Physician Radiation Oncology 01/26/15 Statement Processor Relationship Specialty Start Date End Date Mei Cummins MD [address] [place] [address] PCP - General Family Medicine 12/17/16 Anuja Steen MD, [address] [place] [place] [address] Physician Radiation Oncology 01/26/15 Statement Processor Relationship Specialty Start Date End Date Mei Cummins MD [address] [place] [address] PCP - General Family Medicine 12/17/16 Anuja Steen MD, [address] [place] [address] Physician Radiation Oncology 01/26/15 Statement Processor Relationship Specialty Start Date End Date Mei Cummins MD [address] [place] [address] PCP - General Family Medicine 12/17/16 Anuja Steen MD, [address] [place] [address] Physician Radiation Oncology 01/26/15 Statement Processor Relationship Specialty Start Date End Date Mei Cummins MD [address] [place] [address] PCP - General Family Medicine 12/17/16 Anuja Steen MD, [address] [place] [address] Physician Radiation Oncology 01/26/15 Statement Processor Relationship Specialty Start Date End Date Mei Cummins MD [address] [place] [address] PCP - General Family Medicine 12/17/16 Anuja Steen MD, [address] [facility] [place] [address] Physician Radiation Oncology 01/26/15 Team Status: Active [...] Primary Care Provider Active Alethea Garcia , AIRPLANE ELECTRICIAN-C Attending Provider, Referrin g Provider Active Statement Processor Relationship Specialty Start Date End Date Mei Cummins MD [address] [facility] [place] [address] PCP - General Family Medicine 12/17/16 Anuja Steen MD, [address] [facility] [place] [address] Physician Radiation Oncology 01/26/15 Statement Processor Relationship Specialty Start Date End Date Mei Cummins MD [address] [facility] [place] [address] PCP - General Family Medicine 12/17/16 Anuja Steen MD, [address] [facility] [place] [address] Physician Radiation Oncology 01/26/15 Statement Processor Relationship Specialty Start Date End Date Mei Cummins MD [address] [facility] [place] [address] PCP - General Family Medicine 12/17/16 Anuja Steen MD, [address] [place] [address] Physician Radiation Oncology 01/26/15 Statement Processor Relationship Specialty Start Date End Date Mei Cummins MD [address] [place] [address] PCP - General Family Medicine 12/17/16 Anuja Steen MD, [address] [place] [address] Physician Radiation Oncology 01/26/15 Statement Processor Relationship Specialty Start Date End Date Mei Cummins MD [address] [place] [address] PCP - General Family Medicine 12/17/16 Anuja Steen MD, [address] [place] [address] Physician Radiation Oncology 01/26/15 Statement Processor Relationship Specialty Start Date End Date Mei Cummins MD [address] [place] [address] PCP - General Family Medicine 12/17/16 Anuja Steen MD, [address] [place] [address] Physician Radiation Oncology 01/26/15 Statement Processor Relationship Specialty Start Date End Date Mei Cummins MD [address] [place] [address] PCP - General Family Medicine 12/17/16 Anuja Steen MD, [address] [place] [address] Physician Radiation Oncology 01/26/15 Statement Processor Relationship Specialty Start Date End Date Mei Cummins MD [address] [place] [address] PCP - General Family Medicine 12/17/16 Anuja Steen MD, [address] [place] [address] Physician Radiation Oncology 01/26/15 Statement Processor Relationship Specialty Start Date End Date Mei Cummins MD [address] [place] [address] PCP - General Family Medicine 12/17/16 Anuja Steen MD, [address] [place] [address] Physician Radiation Oncology 01/26/15 Statement Processor Relationship Specialty Start Date End Date Mei Cummins MD [address] [place] [address] PCP - General Family Medicine 12/17/16 Anuja Steen MD, [address] [facility] [place] [address] Physician Radiation Oncology 01/26/15 Statement Processor Relationship Specialty Start Date End Date Mei Cummins MD [address] [place] [address] PCP - General Family Medicine 12/17/16 Anuja Steen MD, [address] [place] [address] Physician Radiation Oncology 01/26/15 Statement Processor Relationship Specialty Start Date End Date Mei Cummins MD [address] [place] [address] PCP - General Family Medicine 12/17/16 Anuja Steen MD, [address] [facility] [place] [address] Physician Radiation Oncology 01/26/15 Statement Processor Relationship Specialty Start Date End Date Mei Cummins MD [address] [facility] [place] [address] PCP - General Family Medicine 12/17/16 Anuja Steen MD, [address] [place] [address] Physician Radiation Oncology 01/26/15 Statement Processor Relationship Specialty Start Date End Date Mei Cummins MD [address] [place] [address] PCP - General Family Medicine 12/17/16 Anuja Steen MD, [address] [place] [address] Physician Radiation Oncology 01/26/15 Statement Processor Relationship Specialty Start Date End Date Mei Cummins MD [address] [place] [address] PCP - General Family Medicine 12/17/16 Anuja Steen MD, [address] [place] [address] Physician Radiation Oncology 01/26/15 Statement Processor Relationship Specialty Start Date End Date Mei Cummins MD [address] [place] [address] PCP - General Family Medicine 12/17/16 Anuja Steen MD, [address] [place] [address] Physician Radiation Oncology 01/26/15 Statement Processor Relationship Specialty Start Date End Date Mei Cummins MD [address] [facility], [place] [address] [phone] PCP - General Family Medicine 12/17/16 Anuja Steen MD, [address] [facility], [place] [address] [phone] Physician Radiation Oncology 01/26/15 Statement Processor Relationship Specialty Start Date End Date Mei Cummins MD [address] [facility], [place] [address] [phone] PCP - General Family Medicine 12/17/16 Anuja Steen MD, [address] [facility] [place], [place] [address] [phone] Physician Radiation Oncology 01/26/15 Statement Processor Relationship Specialty Start Date End Date Mei Cummins MD [address] [facility], [place] [address] [phone] PCP - General Family Medicine 12/17/16 Anuja Steen MD, [address] [facility] [place], [place] [address] [phone] Physician Radiation Oncology 01/26/15 Team Status: Inactive Member Role Status Dates Dr. Mei Cummins MD Primary Care Provider Active Dr. Cristi Godinez MD Emergency Provider Active Statement Processor Relationship Specialty Start Date End Date Mei Cummins MD [address] [facility] [place] [address] PCP - General Family Medicine 12/17/16 Anuja Steen MD, [address] [facility] [place] [address] Physician Radiation Oncology 01/26/15 Statement Processor Relationship Specialty Start Date End Date Mei Cummins MD [address] [place] [address] PCP - General Family Medicine 12/17/16 Anuja Steen MD, [address] [place] [address] Physician Radiation Oncology 01/26/15 Statement Processor Relationship Specialty Start Date End Date Mei Cummins MD [address] [place] [address] PCP - General Family Medicine 12/17/16 Anuja Steen MD, [address] [place] [address] Physician Radiation Oncology 01/26/15 Statement Processor Relationship Specialty Start Date End Date Mei Cummins MD [address] [place] [address] PCP - General Family Medicine 12/17/16 Anuja Steen MD, [address] [place] [address] Physician Radiation Oncology 01/26/15 Statement Processor Relationship Specialty Start Date End Date Mei Cummins MD [address] [place] [address] PCP - General Family Medicine 12/17/16 Anuja Steen MD, [address] [place] [address] Physician Radiation Oncology 01/26/15 Statement Processor Relationship Specialty Start Date End Date Mei Cummins MD [address] [place], [place] [address] [phone] PCP - General Family Medicine 12/17/16 Anuja Steen MD, [address] [place] [address] Physician Radiation Oncology 01/26/15 Statement Processor Relationship Specialty Start Date End Date Mei Cummins MD [address] [place] [address] PCP - General Family Medicine 12/17/16 Anuja Steen MD, [address] [place] [address] Physician Radiation Oncology 01/26/15 Statement Processor Relationship Specialty Start Date End Date Mei Cummins MD [address] [place] [address] PCP - General Family Medicine 12/17/16 Anuja Steen MD, [address] [place] [address] Physician Radiation Oncology 01/26/15 Statement Processor Relationship Specialty Start Date End Date Mei Cummins MD [address] [place] [address] PCP - General Family Medicine 12/17/16 Anuja Steen MD, [address] [place] [address] Physician Radiation Oncology 01/26/15 Team Status: Inactive [...] Londono MD Emergency Provider Active Dr. Jacob Sauzo DO Admit Provider, Attending Provider Active Team [...] Dr. Martin Zaragoza MD Attending Provider Active Statement Processor Relationship Specialty Start Date End Date Mei Cummins [address] [facility] [place] [address] PCP - General 02/08/20 Statement Processor Relationship Specialty Start Date End Date Mei Cummins [address] [place] [address] PCP - General 02/08/20 Statement Processor Relationship Specialty Start Date End Date Mei Cummins MD [address] [place] [address] PCP - General Family Medicine 12/17/16 Anuja Steen MD [address] [place] [address] Physician Radiation Oncology 01/26/15 Statement Processor Relationship Specialty Start Date End Date Mei Cummins MD [address] [place] [address] PCP - General Family Medicine 12/17/16 Anuja Steen MD [address] [place] [address] Physician Radiation Oncology 01/26/15 Statement Processor Relationship Specialty Start Date End Date Mei Cummins MD [address] [place] [address] PCP - General Family Medicine 12/17/16 Anuja Steen MD [address] [place] [address] Physician Radiation Oncology 01/26/15 Statement Processor Relationship Specialty Start Date End Date Mei Cummins MD [address] [place] [address] PCP - General Family Medicine 12/17/16 Anuja Steen MD [address] [place] [address] Physician Radiation Oncology 01/26/15 Statement Processor Relationship Specialty Start Date End Date Mie Cummins MD [address] [place] [address] PCP - General Family Medicine 12/17/16 Anuja Steen MD [address] [place] [address] Physician Radiation Oncology 01/26/15 Statement Processor Relationship Specialty Start Date End Date Mei Cummins MD [address] [place] [address] PCP - General Family Medicine 12/17/16 Anuja Steen MD [address] [place] [address] Physician Radiation Oncology 01/26/15 Statement Processor Relationship Specialty Start Date End Date Mei Cummins MD [address] [place] [address] PCP - General Family Medicine 12/17/16 Anuja Steen MD [address] [place] [address] Physician Radiation Oncology 01/26/15 Statement Processor Relationship Specialty Start Date End Date Mei Cummins MD [address] [place] [address] PCP - General Family Medicine 12/17/16 Anuja Steen MD [address] [place] [address] Physician Radiation Oncology 01/26/15 Statement Processor Relationship Specialty Start Date End Date Mei Cummins MD [address] [place] [address] PCP - General Family Medicine 12/17/16 Anuja Steen MD [address] [place] [address] Physician Radiation Oncology 01/26/15 Statement Processor Relationship Specialty Start Date End Date Mei Cummins MD [address] [place] [address] PCP - General Family Medicine 12/17/16 Anuja Steen MD [address] [place] [address] Physician Radiation Oncology 01/26/15 Team Status: Active Member Role Status Dates Dr. Mei Cummins MD Primary Care Provider Active Dr. Oliverio Allen MD Attending Provider Active Dr. Jacob Suazo DO Referring Provider Active Team Status: Inactive Member Role Status Dates Dr. Mei Cummins MD Primary Care Provider Active Dr. Edward Grant DO Emergency Provider Active Statement Processor Relationship Specialty Start Date End Date Mei Cummins MD [address] [facility] [place] [address] PCP - General Family Medicine 12/17/16 Anuja Steen MD [address] [place] [place] [address] Physician Radiation Oncology 01/26/15 Statement Processor Relationship Specialty Start Date End Date Mei Cummins MD [address] [facility] [place] [address] PCP - General Family Medicine 12/17/16 Anuja Steen MD [address] [place] [place] [address] Physician Radiation Oncology 01/26/15 Team Status: Inactive Member Role Status Dates Dr. Mei Cummins MD Primary Care Provider Active Dr. Edward Grant DO Attending Provider, Emergency Pro vider Active Team Status: Inactive Member Role Status Dates Dr. Mei Cummins MD Primary Care Provider Active Dr. Bruno Catalan MD Attending Provider Active Statement Processor Relationship Specialty Start Date End Date Mei Cummins MD [address] [facility] [place] [address] PCP - General Family Medicine 12/17/16 Anuja Steen MD [address] [place] [place] [address] Physician Radiation Oncology 01/26/15 06/16/23 Salazar Meraz DO [address] [place] [address] Hematology/Oncology 06/17/23 Statement Processor Relationship Specialty Start Date End Date Mei Cummins MD [address] [place] [address] PCP - General Family Medicine 12/17/16 Salazar Meraz DO [address] [place] [address] Hematology/Oncology 06/17/23 Statement Processor Relationship Specialty Start Date End Date Mei Cummins MD [address] [place] [address] PCP - General Family Medicine 12/17/16 Salazar Meraz DO [address] [place] [address] Hematology/Oncology 06/17/23 Statement Processor Relationship Specialty Start Date End Date Mei Cummins MD [address] [place] [address] PCP - General Family Medicine 12/17/16 Salazar Meraz DO [address] [place] [address] Hematology/Oncology 06/17/23 Statement Processor Relationship Specialty Start Date End Date Mei Cummins MD [address] [place] [address] PCP - General Family Medicine 12/17/16 Salazar Meraz DO [address] [place] [address] Hematology/Oncology 06/17/23 Statement Processor Relationship Specialty Start Date End Date Mei Cummins MD [address] [place] [address] PCP - General Family Medicine 12/17/16 Salazar Meraz DO [address] [place] [address] Hematology/Oncology 06/17/23 Statement Processor Relationship Specialty Start Date End Date Mei Cummins MD [address] [place] [address] PCP - General Family Medicine 12/17/16 Salazar Meraz DO [address] [place] [address] Hematology/Oncology 06/17/23 Statement Processor Relationship Specialty Start Date End Date Mei Cummins MD [address] [place] [address] PCP - General Family Medicine 12/17/16 Salazar Meraz DO [address] [place] [address] Hematology/Oncology 06/17/23 Statement Processor Relationship Specialty Start Date End Date Mei Cummins MD [address] [place] [address] PCP - General Family Medicine 12/17/16 Salazar Meraz DO [address] [place] [address] Hematology/Oncology 06/17/23 Statement Processor Relationship Specialty Start Date End Date Mei Cummins MD [address] [place] [address] PCP - General Family Medicine 12/17/16 Salazar Meraz DO [address] [facility] [place] [place] [address] Hematology/Oncology 06/17/23 Statement Processor Relationship Specialty Start Date End Date Mei Cummins MD [address] [place] [address] PCP - General Family Medicine 12/17/16 Salazar Meraz DO [address] [place] [address] Hematology/Oncology 06/17/23 Statement Processor Relationship Specialty Start Date End Date Mei Cummins MD [address] [place] [address] PCP - General Family Medicine 12/17/16 Salazar Meraz DO [address] [place] [address] Hematology/Oncology 06/17/23 Statement Processor Relationship Specialty Start Date End Date Mei Cummins MD [address] [place] [address] PCP - General Family Medicine 12/17/16 Salazar Meraz DO [address] [place] [address] Hematology/Oncology 06/17/23 Statement Processor Relationship Specialty Start Date End Date Mei Cummins MD [address] [facility] [place] [address] PCP - General Family Medicine 12/17/16 Salazar Meraz DO [address] [facility] [place] [address] Hematology/Oncology 06/17/23 Statement Processor Relationship Specialty Start Date End Date Mei Cummins MD [address] [facility] [place] [address] PCP - General Family Medicine 12/17/16 Salazar Meraz DO [address] [facility] [place] [address] Hematology/Oncology 06/17/23 Statement Processor Relationship Specialty Start Date End Date Mei Cummins MD [address] [facility] [address] PCP - General Family Medicine 12/17/16 Salazar Meraz DO [address] [facility] [place] [address] Hematology/Oncology 06/17/23 Statement Processor Relationship Specialty Start Date End Date Mei Cummins MD [address] [place] [address] PCP - General Family Medicine 12/17/16 Salazar Meraz DO [address] [place] [address] Hematology/Oncology 06/17/23 Statement Processor Relationship Specialty Start Date End Date Mei Cummins MD [address] [place] [address] PCP - General Family Medicine 12/17/16 Salazar Meraz DO [address] [facility] [place] [address] Hematology/Oncology 06/17/23 Statement Processor Relationship Specialty Start Date End Date Mei Cummins MD [address] [facility] [place] [address] PCP - General Family Medicine 12/17/16 Salazar Meraz DO [address] [facility] [place] [address] Hematology/Oncology 06/17/23 Statement Processor Relationship Specialty Start Date End Date Mei Cummins MD [address] [facility] [place] [address] PCP - General Family Medicine 12/17/16 Salazar Meraz DO [address] [facility] [place] [address] Hematology/Oncology 06/17/23 Statement Processor Relationship Specialty Start Date End Date Mei Cummins MD [address] [facility] [place] [address] PCP - General Family Medicine 12/17/16 Salazar Meraz DO [address] [facility] [place] [address] Hematology/Oncology 06/17/23 Statement Processor Relationship Specialty Start Date End Date Mei Cummins MD [address] [place] [address] PCP - General Family Medicine 12/17/16 Salazar Meraz DO [address] [place] [address] Hematology/Oncology 06/17/23 Statement Processor Relationship Specialty Start Date End Date Mei Cummins MD [address] [place] [address] PCP - General Family Medicine 12/17/16 Salazar Meraz DO [address] [place] [address] Hematology/Oncology 06/17/23 Statement Processor Relationship Specialty Start Date End Date Mei Cummins MD [address] [place] [address] PCP - General Family Medicine 12/17/16 Salazar Meraz DO [address] [place] [address] Hematology/Oncology 06/17/23 Statement Processor Relationship Specialty Start Date End Date Mei Cummins MD [address] [place] [address] PCP - General Family Medicine 12/17/16 Salazar Meraz DO [address] [place] [address] Hematology/Oncology 06/17/23 Statement Processor Relationship Specialty Start Date End Date Mei Cummins MD [address] [place] [address] PCP - General Family Medicine 12/17/16 Salazar Meraz DO [address] [place] [address] Hematology/Oncology 06/17/23 Statement Processor Relationship Specialty Start Date End Date Mei Cummins MD [address] [place] [address] PCP - General Family Medicine 12/17/16 Salazar Meraz DO [address] [place] [address] Hematology/Oncology 06/17/23 Statement Processor Relationship Specialty Start Date End Date Mei Cummins MD [address] [place] [address] PCP - General Family Medicine 12/17/16 Salazar Meraz DO [address] [place] [address] Hematology/Oncology 06/17/23 Statement Processor Relationship Specialty Start Date End Date Mei Cummins MD [address] [place] [address] PCP - General Family Medicine 12/17/16 Salazar Meraz DO [address] [place] [address] Hematology/Oncology 06/17/23 Statement Processor Relationship Specialty Start Date End Date Mei Cummins MD [address] [place] [address] PCP - General Family Medicine 12/17/16 Salazar Meraz DO [address] [place] [address] Hematology/Oncology 06/17/23 Statement Processor Relationship Specialty Start Date End Date Mei Cummins MD [address] [place] [address] PCP - General Family Medicine 12/17/16 Salazar Meraz DO [address] [facility] [place] [address] Hematology/Oncology 06/17/23 Statement Processor Relationship Specialty Start Date End Date Mei Cummins MD [address] [place] [address] PCP - General Family Medicine 12/17/16 Anuja Steen MD [address] [place] [address] Physician Radiation Oncology 01/26/15 06/16/23 Statement Processor Relationship Specialty Start Date End Date Mei Cummins MD [address] [place] [address] PCP - General Family Medicine 12/17/16 Salazar Meraz DO [address] [place] [address] Hematology/Oncology 06/17/23 Statement Processor Relationship Specialty Start Date End Date Mei Cummins MD [address] [place] [address] PCP - General Family Medicine 12/17/16 Salazar Meraz DO [address] [facility] [place] [address] Hematology/Oncology 06/17/23 Statement Processor Relationship Specialty Start Date End Date Mei Cummins MD [address] [facility] [place] [address] PCP - General Family Medicine 12/17/16 Salazar Meraz DO [address] [facility] [place] [address] Hematology/Oncology 06/17/23 Statement Processor Relationship Specialty Start Date End Date Mei Cummins MD [address] [facility] [place] [address] PCP - General Family Medicine 12/17/16 Salazar Meraz DO [address] [facility] [place] [address] Hematology/Oncology 06/17/23 Statement Processor Relationship Specialty Start Date End Date Mei Cummins MD [address] [facility] [place] [address] PCP - General Family Medicine 12/17/16 Salazar Meraz DO [address] [facility] [place] [address] Hematology/Oncology 06/17/23 Statement Processor Relationship Specialty Start Date End Date Mei Cummins MD [address] [facility] [place] [address] PCP - General Family Medicine 12/17/16 Salazar Meraz DO [address] [facility] [place] [place] [address] Hematology/Oncology 06/17/23 Statement Processor Relationship Specialty Start Date End Date Mei Cummins MD [address] [place] [address] PCP - General Family Medicine 12/17/16 Salazar Meraz DO [address] [facility] [place] [address] Hematology/Oncology 06/17/23 Statement Processor Relationship Specialty Start Date End Date Mei Cummins MD [address] [facility] [place] [address] PCP - General Family Medicine 12/17/16 Salazar Meraz DO [address] [facility] [place] [place] [address] Hematology/Oncology 06/17/23 Statement Processor Relationship Specialty Start Date End Date Mei Cummins MD [address] [facility] [place] [address] PCP - General Family Medicine 12/17/16 Salazar Meraz DO [address] [facility] [place] [address] Hematology/Oncology 06/17/23 Statement Processor Relationship Specialty Start Date End Date Mei Cummins MD [address] [facility] [place] [address] PCP - General Family Medicine 12/17/16 Salazar eMraz DO [address] [place] [address] Hematology/Oncology 06/17/23 Statement Processor Relationship Specialty Start Date End Date Mei Cummins MD [address] [place] [address] PCP - General Family Medicine 12/17/16 Salazar Meraz DO [address] [place] [address] Hematology/Oncology 06/17/23 Statement Processor Relationship Specialty Start Date End Date Mei Cummins MD [address] [place] [address] PCP - General Family Medicine 12/17/16 Salazar Meraz DO [address] [place] [address] Hematology/Oncology 06/17/23 Statement Processor Relationship Specialty Start Date End Date Mei Cummins MD [address] [place] [address] PCP - General Family Medicine 12/17/16 Salazar Meraz DO [address] [place] [address] Hematology/Oncology 06/17/23 Twila Weston APRN.MEDICAL DEVICE ASSEMBLER [address] [place] [address] Cdl A Driver Family Medicine 02/07/24 Statement Processor Relationship Specialty Start Date End Date Mei Cummins MD [address] [place] [address] PCP - General Family Medicine 12/17/16 Salazar Meraz DO [address] [place] [address] Hematology/Oncology 06/17/23 Twila Weston APRN.MEDICAL DEVICE ASSEMBLER [address] [place] [address] Cdl A Driver Family Medicine 02/07/24 Statement Processor Relationship Specialty Start Date End Date Mei Cummins MD [address] [facility] [place] [address] PCP - General Family Medicine 12/17/16 Salazar Meraz DO [address] [place] [address] Hematology/Oncology 06/17/23 Twila Weston APRN.MEDICAL DEVICE ASSEMBLER [address] [facility] [place] [address] Cdl A Driver Family Medicine 02/07/24 Statement Processor Relationship Specialty Start Date End Date Mei Cummins MD [address] [facility] [place] [address] PCP - General Family Medicine 12/17/16 Salazar Meraz DO [address] [place] [address] Hematology/Oncology 06/17/23 Twila Weston APRN.MEDICAL DEVICE ASSEMBLER [address] [facility] [place] [address] Cdl A Driver Family Medicine 02/07/24 Statement Processor Relationship Specialty Start Date End Date Mei Cummins MD [address] [facility] [place] [address] PCP - General Family Medicine 12/17/16 Salazar Meraz DO [address] [place] [address] Hematology/Oncology 06/17/23 Twila Weston APRN.MEDICAL DEVICE ASSEMBLER [address] [facility] [place] [address] Cdl A Driver Family Medicine 02/07/24 Jamshid Brown APRN.MEDICAL DEVICE ASSEMBLER [address] [facility] [place] [address] Cdl A Driver Family Medicine 02/16/24 Statement Processor Relationship Specialty Start Date End Date Mei Cummins MD [address] [facility] [place] [address] PCP - General Family Medicine 12/17/16 Salazar Meraz DO [address] [place] [address] Hematology/Oncology 06/17/23 Twila Weston APRN.MEDICAL DEVICE ASSEMBLER [address] [facility] [place] [address] Cdl A Driver Family Medicine 02/07/24 Jamshid Brown APRN.MEDICAL DEVICE ASSEMBLER [address] [facility] [place] [address] Cdl A Driver Family Medicine 02/16/24 Statement Processor Relationship Specialty Start Date End Date Mei Cummins MD [address] [facility] [place] [address] PCP - General Family Medicine 12/17/16 Salazar Meraz DO [address] [facility] [address] Hematology/Oncology 06/17/23 Twila Weston APRN.MEDICAL DEVICE ASSEMBLER [address] [facility] [place] [address] Cdl A Driver Family Medicine 02/07/24 Jamshid Brown APRN.MEDICAL DEVICE ASSEMBLER [address] [facility] [address] Cdl A Driver Family Medicine 02/16/24 Statement Processor Relationship Specialty Start Date End Date Mei Cummins MD [address] [facility] [address] PCP - General Family Medicine 12/17/16 Salazar Meraz DO [address] [place] [address] Hematology/Oncology 06/17/23 Twila Weston APRN.MEDICAL DEVICE ASSEMBLER [address] [facility] [place] [address] Cdl A Driver Family Medicine 02/07/24 Jamshid Brown APRN.MEDICAL DEVICE ASSEMBLER [address] [facility] [address] Cdl A Driver Family Medicine 02/16/24 Statement Processor Relationship Specialty Start Date End Date Mei Cummins MD [address] [facility] [address] PCP - General Family Medicine 12/17/16 Salazar Meraz DO [address] [place] [address] Hematology/Oncology 06/17/23 Twila Weston APRN.MEDICAL DEVICE ASSEMBLER [address] [place] [address] Cdl A Driver Family Medicine 02/07/24 Jamshid Brown APRN.MEDICAL DEVICE ASSEMBLER [address] [place] [address] Cdl A Driver Family Medicine 02/16/24 Statement Processor Relationship Specialty Start Date End Date Mei Cummins MD [address] [place] [address] PCP - General Family Medicine 12/17/16 Salazar Meraz DO [address] [place] [address] Hematology/Oncology 06/17/23 Twila Weston APRN.MEDICAL DEVICE ASSEMBLER [address] [place] [address] Cdl A Driver Family Medicine 02/07/24 Jamshid Brown APRN.MEDICAL DEVICE ASSEMBLER [address] [place] [address] Cdl A Driver Family Medicine 02/16/24 Statement Processor Relationship Specialty Start Date End Date Mei Cummins MD [address] [place] [address] PCP - General Family Medicine 12/17/16 Salazar Meraz DO [address] [place] [address] Hematology/Oncology 06/17/23 Twila Weston APRN.MEDICAL DEVICE ASSEMBLER [address] [place] [address] Cdl A Driver Family Medicine 02/07/24 Jamshid Brown APRN.MEDICAL DEVICE ASSEMBLER [address] [place] [address] Cdl A Driver Family Medicine 02/16/24 Statement Processor Relationship Specialty Start Date End Date Mei Cummins MD [address] [address] PCP - General Family Medicine 12/17/16 Salazar Meraz DO [address] [place] [address] Hematology/Oncology 06/17/23 Twila Weston, OIL DELIVERER.MEDICAL DEVICE ASSEMBLER [address] [place] [address] Cdl A Driver Family Medicine 02/07/24 Jamshid Brown OIL DELIVERER.MEDICAL DEVICE ASSEMBLER [address] [place] [address] Cdl A Driver Family Medicine 02/16/24 Statement Processor Relationship Specialty Start Date End Date Mei Cummins MD [address] [place] [address] PCP - General Family Medicine 12/17/16 Salazar Meraz DO [address] [place] [address] Hematology/Oncology 06/17/23 Twila Weston APRN.MEDICAL DEVICE ASSEMBLER [address] [place] [address] Cdl A Driver Family Medicine 02/07/24 Jamshid Brown APRN.MEDICAL DEVICE ASSEMBLER [address] [place] [address] Cdl A Driver Family Medicine 02/16/24 Statement Processor Relationship Specialty Start Date End Date Mei Cummins MD [address] [address] PCP - General Family Medicine 12/17/16 Salazar Meraz DO [address] [place] [address] Hematology/Oncology 06/17/23 Twila Weston APRN.MEDICAL DEVICE ASSEMBLER [address] [place] [address] Cdl A Driver Family Medicine 02/07/24 Jamshid Brown APRN.MEDICAL DEVICE ASSEMBLER [address] [place] [address] Cdl A Driver Family Medicine 02/16/24 Statement Processor Relationship Specialty Start Date End Date Mei Cummins MD [address] [place] [address] PCP - General Family Medicine 12/17/16 Salazar Meraz DO [address] [place] [address] Hematology/Oncology 06/17/23 Twila Weston APRN.MEDICAL DEVICE ASSEMBLER [address] [place] [address] [facility]/07/24 Jamshid Brown APRN.MEDICAL DEVICE ASSEMBLER [address] [place] [address] [facility] 02/16/24 Statement Processor Relationship Specialty Start Date End Date Mei Cummins MD [address] [place] [address] PCP - General Family Medicine 12/17/16 Salazar Meraz DO [address] [place] [address] Hematology/Oncology 06/17/23 Twila Weston APRN.MEDICAL DEVICE ASSEMBLER [address] [place] [address] [facility] 02/07/24 Jamshid Brown APRN.MEDICAL DEVICE ASSEMBLER [address] [place] [address] [facility] 02/16/24 Statement Processor Relationship Specialty Start Date End Date Mei Cummins MD [address] [place] [address] PCP - General Family Medicine 12/17/16 Salazar Meraz DO [address] [place] [address] Hematology/Oncology 06/17/23 Twila Weston APRN.MEDICAL DEVICE ASSEMBLER [address] [place] [address] [facility] 02/07/24 Jamshid Brown APRN.MEDICAL DEVICE ASSEMBLER [address] [place] [address] [facility] 02/16/24 Statement Processor Relationship Specialty Start Date End Date Mei Cummins MD [address] [place] [address] PCP - General Family Medicine 12/17/16 Salazar Meraz DO [address] [place] [address] Hematology/Oncology 06/17/23 Twila Weston APRN.MEDICAL DEVICE ASSEMBLER [address] [place] [address] [facility] 02/07/24 Jamshid Brown APRN.MEDICAL DEVICE ASSEMBLER [address] [place] [address] [facility] 02/16/24 Statement Processor Relationship Specialty Start Date End Date Mei Cummins MD [address] [place] [address] PCP - General Family Medicine 12/17/16 Salazar Meraz DO [address] [place] [address] Hematology/Oncology 06/17/23 Twila Weston APRN.MEDICAL DEVICE ASSEMBLER [address] [facility] [address] Cdl A Driver Family Medicine 02/07/24 Jamshid Brown APRN.MEDICAL DEVICE ASSEMBLER [address] [place] [address] Cdl A Driver Family Medicine 02/16/24 Statement Processor Relationship Specialty Start Date End Date Mei Cummisn MD [address] [facility] [place] [address] PCP - General Family Medicine 12/17/16 Salazar Meraz DO [address] [place] [address] Hematology/Oncology 06/17/23 Twila Weston APRN.MEDICAL DEVICE ASSEMBLER [address] [facility] [place] [address] Cdl A Driver Family Medicine 02/07/24 Jamshid Brown APRN.MEDICAL DEVICE ASSEMBLER [address] [facility] [place] [address] Cdl A Driver Family [facility] 02/16/24 Statement Processor Relationship Specialty Start Date End Date Mei Cummins MD [address] [facility] [place] [address] PCP - General Family Medicine 12/17/16 Salazar Meraz DO [address] [place] [address] Hematology/Oncology 06/17/23 Twila Weston APRN.MEDICAL DEVICE ASSEMBLER [address] [facility] [place] [address] Cdl A Driver Family Medicine 02/07/24 Jamshid Brown APRN.MEDICAL DEVICE ASSEMBLER [address] [place] [address] [facility] 02/16/24 Team Status: Inactive Member Role Status [...] 30, 2024 End: April 01, 2024 Rosa Gracia AIRPLANE ELECTRICIAN, AIRPLANE ELECTRICIAN-C Attending Provider Active Start: March 30, 2024 End: April 01, 2024 Dr. Juan Carlos Viveros DPM Referring Provider Active Start: March 30, 2024 End: April 01, 2024 Team Status: Active Member Role Status Dates Dr. Mei Cummins MD Primary Care Provider Active Start: March 30, 2024 Rosa Garcia AIRPLANE ELECTRICIAN, AIRPLANE ELECTRICIAN-C Attending Provider Active Start: March 30, 2024 Rosa Garcia AIRPLANE ELECTRICIAN, AIRPLANE ELECTRICIAN-C Other Provider Active Start: March 30, 2024 Dr. Juan Carlos Viveros DPM Referring Provider Active Start: March 30, 2024 Team Status: Active Member Role Status Dates Dr. Mei Cummins MD Primary Care Provider Active Start: April 27, 2024 Rosa Garcia AIRPLANE ELECTRICIAN, AIRPLANE ELECTRICIAN-C Attending Provider Active Start: April 27, 2024 Rosa Garcia AIRPLANE ELECTRICIAN, AIRPLANE ELECTRICIAN-C Other Provider Active Start: April 27, 2024 [...] St art: May 11, 2024 Rosa Garcia AIRPLANE ELECTRICIAN, AIRPLANE ELECTRICIAN-C Attending Provider Active Start: May 11, 2024 [...] Other Provider Active Start: May 22, 2024 Statement Processor Relationship Specialty Start Date End Date Mei Cummins MD [address] [place], [place] [address] PCP - General Family Medicine 12/17/16 Salazar Meraz DO [address] [place] [address] Hematology/Oncology 06/17/23 Twila Weston APRN.MEDICAL DEVICE ASSEMBLER [address] [facility] [place] [address] Cdl A Driver Family Medicine 02/07/24 Jamshid Brown APRN.CNP [address] [facility] [address] Cdl A Driver Family [facility] 02/16/24 Team Status: Active Member Role Status [...] Attending Provider Active Start: June 04, 2024 Statement Processor Relationship Specialty Start Date End Date Mei Cummins MD [address] [place], [place] [address] PCP - General Family Medicine 12/17/16 Salazar Meraz DO [address] [place], [place] [address] Hematology/Oncology 06/17/23 Twila Weston APRN.MEDICAL DEVICE ASSEMBLER [address] [place], [place] [address] [facility] 02/07/24 Jamshid Brown APRN.MEDICAL DEVICE ASSEMBLER [address] [place], [place] [address] [facility] 02/16/24 Team Status: Active Member Role [...] Mazariegos DPM Attending Provider Active Start: June 15, 2024 Statement Processor Relationship Specialty Start Date End Date Mei Cummins MD [address] [place], [place] [address] PCP - General Family Medicine 12/17/16 Salazar Meraz DO [address] [place], [place] [address] Hematology/Oncology 06/17/23 Twila Weston APRN.MEDICAL DEVICE ASSEMBLER [address] [place] [address] Cdl A Driver Family Medicine 02/07/24 Jamshid Brown APRN.MEDICAL DEVICE ASSEMBLER [address] [place] [address] Cdl A Driver Family [facility] 02/16/24 Statement Processor Relationship Specialty Start Date End Date Mei Cummins MD [address] [place] [address] PCP - General Family Medicine 12/17/16 Salazar Meraz DO [address] [place] [address] Hematology/Oncology 06/17/23 Twila Weston APRN.MEDICAL DEVICE ASSEMBLER [address] [place] [address] Cdl A Driver Family Medicine 02/07/24 Jamshid Brown APRN.MEDICAL DEVICE ASSEMBLER [address] [place] [address] Cdl A Driver Family Medicine 02/16/24 Statement Processor Relationship Specialty Start Date End Date Mei Cummins MD [address] [place] [address] PCP - General Family Medicine 12/17/16 Salazar Meraz DO [address] [place] [address] Hematology/Oncology 06/17/23 Twila Weston APRN.MEDICAL DEVICE ASSEMBLER [address] [place] [address] Cdl A Driver Family Medicine 02/07/24 Jamshid Brown APRN.MEDICAL DEVICE ASSEMBLER [address] [place] [address] [facility] 02/16/24 Statement Processor Relationship Specialty Start Date End Date Mei Cummins MD [address] [place] [address] PCP - General Family Medicine 12/17/16 Salazar Meraz DO [address] [place] [address] Hematology/Oncology 06/17/23 Twila Weston APRN.MEDICAL DEVICE ASSEMBLER [address] [place] [address] [facility] Medicine 02/07/24 Jamshid Brown APRN.MEDICAL DEVICE ASSEMBLER [address] [place] [address] [facility] 02/16/24 Statement Processor Relationship Specialty Start Date End Date Mei Cummins MD [address] [place] [address] PCP - General Family Medicine 12/17/16 Salazar Meraz DO [address] [place] [address] Hematology/Oncology 06/17/23 Twila Weston APRN.MEDICAL DEVICE ASSEMBLER [address] [place] [address] Cdl A Driver Family Medicine 02/07/24 Jamshid Brown APRN.MEDICAL DEVICE ASSEMBLER [address] [place], [place] [address]65[address] Cdl A Driver [facility] 02/16/24 Statement Processor Relationship Specialty Start Date End Date Mei Cummins MD [address] [place], [place] [address] PCP - General Family Medicine 12/17/16 Salazar Meraz DO [address] [place] [address] Hematology/Oncology 06/17/23 Twila Weston, OIL DELIVERER.MEDICAL DEVICE ASSEMBLER [address] [place] [address] [facility] 02/07/24 Jamshid Brown OIL DELIVERER.MEDICAL DEVICE ASSEMBLER [address] [place] [address] [facility] 02/16/24 Team Status: Active Member Role Status [...] Attending Provider Active Start: July 13, 2024 Statement Processor Relationship Specialty Start Date End Date Mei Cummins MD [address] [place], [place] [address] PCP - General Family Medicine 12/17/16 Salazar Meraz DO [address] [place] [address] Hematology/Oncology 06/17/23 Jamshid Brown APRN.MEDICAL DEVICE ASSEMBLER [address] [place] [address] Cdl A Driver Family [facility] 02/16/24 Statement Processor Relationship Specialty Start Date End Date Mei Cummins MD [address] [place] [address] PCP - General Family Medicine 12/17/16 Salazar Meraz DO [address] [place] [address] Hematology/Oncology 06/17/23 Jamshid rBown APRN.MEDICAL DEVICE ASSEMBLER [address] [place] [address] Cdl A Driver Family Medicine 02/16/24 Statement Processor Relationship Specialty Start Date End Date Mei Cummins MD [address] [place] [address] PCP - General Family Medicine 12/17/16 Salazar Meraz DO [address] [place] [address] Hematology/Oncology 06/17/23 Twila Weston APRN.MEDICAL DEVICE ASSEMBLER [address] [place] [address] Cdl A Driver Family Medicine 02/07/24 07/13/24 Jamshid Brown APRN.MEDICAL DEVICE ASSEMBLER [address] [place] [address] Cdl A Driver Family Medicine 02/16/24 Statement Processor Relationship Specialty Start Date End Date Mei Cummins MD [address] [place] [address] PCP - General Family Medicine 12/17/16 Salazar Meraz DO [address] [place] [address] Hematology/Oncology 06/17/23 Jamshid Brown APRN.MEDICAL DEVICE ASSEMBLER [address] [place] [address] [facility] Family Medicine 02/16/24 Statement Processor Relationship Specialty Start Date End Date Mei Cummins MD [address] [place] [address] PCP - General Family Medicine 12/17/16 Salazar Meraz DO [address] [place] [address] Hematology/Oncology 06/17/23 Jamshid Brown APRN.MEDICAL DEVICE ASSEMBLER [address] [place] [address] [facility] Family Medicine 02/16/24 Statement Processor Relationship Specialty Start Date End Date Mei Cummins MD [address] [place] [address] PCP - General Family Medicine 12/17/16 Salazar Meraz DO [address] [place] [address] Hematology/Oncology 06/17/23 Jamshid Brown APRN.MEDICAL DEVICE ASSEMBLER [address] [place] [address] [facility] Family Medicine 02/16/24 Team Status: Active Member Role/Relationship Status Dates Dr. Mie Cummins MD Primary Care Provider Active Team [...] St art: May 11, 2024 Rosa Garcia AIRPLANE ELECTRICIAN, AIRPLANE ELECTRICIAN-C Attending Provider Active Start: May 11, 2024 Rosa Garcia AIRPLANE ELECTRICIAN, AIRPLANE ELECTRICIAN-C Referring Provider Active Start: May 11, 2024 [...] May 24, 2024 Dr. Mei Cortes , DO Other Provider Active S tart: May 22, 2024 End: May 24, 2024 Team Status: Active Member Role/Relationship Status Dates Dr. Mei Cummins MD Primary Care Provider Active Start: May 23, 2024 Dr. Randy Londono MD Emergency Provider Active Sta rt: May 23, 2024 Dr. Jacob Suazo , Admit Provider Active Start: May 23, 2024 Dr. Jacob Suazo , Other Provider Active Start: May 23, 2024 Dr. Mei Cortes DO Attending Provider Active Start: May 23, 2024 Dr. Mei Cortes DO Other Provider [...] Start: May 24, 2024 Dr. Malu Steen DO Attending Provider Active S tart: May 24, 2024 Dr. Malu Steen , Other Provider Active Start : May 24, [...] 2024 End: June 13, 2024 Dr. Mei Cumimns MD Referring Provider Active Start: June 13, [...] End: August 29, 2024 Dr. Juan Carlos Viverso DPM Referring Provider Active Start: August 24, 2024 End: August 29, 2024 Dr. Rasta Mazariegos DPM Attending Provider Active Start: August 24, 2024 End: August 29, 2024 Statement Processor Relationship Specialty Start Date End Date Mei Cummins MD [address] [place] [address] PCP - General Family Medicine 12/17/16 Salazar Meraz DO [address] [place] [address] Hematology/Oncology 06/17/23 Jamshid Brown APRN.MEDICAL DEVICE ASSEMBLER [address] [place] [address] Cdl A [facility] Family Medicine 02/16/24 Statement Processor Relationship Specialty Start Date End Date Mei Cummins MD [address] [place] [address] PCP - General Family Medicine 12/17/16 Salazar Meraz DO [address] [facility] [place] [address] Hematology/Oncology 06/17/23 Jamshid Brown APRN.MEDICAL DEVICE ASSEMBLER [address] [place] [address] [facility] Family Medicine 02/16/24 Team Status: Inactive Member Role/Relationship Status Dates Dr. Mei Cummins MD Primary Care Provider Active Start: May 22, 2024 End: May 24, 2024 Dr. Randy Londono MD Emergency Provider Active Sta rt: May 22, 2024 End: May 24, 2024 Dr. Jacob Suazo , DO Admit Provider Active Start: May 22, 2024 End: May 24, 2024 Dr. Jacob Suazo , DO Other Provider Active Start: May 22, 2024 End: May 24, 2024 Dr. Malu Steen , DO Attending Provider Active S tart: May 22, 2024 End: May 24, 2024 Dr. Mei Cortes , DO Other Provider Active S tart: May 22, 2024 End: May 24, 2024 Team Status: Active Member Role/Relationship Status Dates Dr. Mei Cummins MD Primary Care Provider Active Start: May 23, 2024 Dr. Randy Londono MD Emergency Provider Active Sta rt: May 23, 2024 Dr. Jacob Suazo , Admit Provider Active Start: May 23, 2024 Dr. Jacob Suazo , DO Other Provider Active Start: May 23, 2024 Dr. eMi Cortes , DO Attending Provider Active Start: May 23, 2024 Dr. Mei Cortes , DO Other Provider Active S tart: May 23, 2024 Team Status: Active Member Role/Relationship Status Dates Dr. Mei Cummins MD Primary Care Provider Active Start: May 24, 2024 Dr. Randy Londono MD Emergency Provider Active Sta rt: May 24, 2024 Dr. Jacob Suazo , DO Admit Provider Active Start: May 24, 2024 Dr. Jacob Suazo , DO Other Provider Active Start: May 24, 2024 Dr. Malu Steen , DO Attending Provider Active S tart: May 24, 2024 Dr. Malu Steen , DO Other Provider Active Start : May 24, 2024 Dr. Mei Cortes , DO Other [...] Active Start: June 04, 2024 Dr. Jacob uSazo DO Other Provider Active Start: June 04, [...] June 08, 2024 End: June 08, 2024 JYAY Otero Referring Provider Active Start: June 08, [...] August 24, 2024 End: August 29, 2024 Team Status: Active Member Role/Relationship Status Dates Dr. Mei Cummins MD Primary Care Provider Active Start: September 07, 2024 Dr. Juan Carlos Viveros DPM Referring Provider Active Start: September 07, 2024 Dr. Rasta Mazariegos DPM Other Provider Active St art: September 07, 2024 Dr. Misha Blunt MD Attending Provider Active Start: September 07, 2024 Team Status: Active Member Role/Relationship Status Dates Dr. Mei Cummins MD Primary Care Provider Active Start: September 14, 2024 Dr. Juan Carlos Viveros DPM Referring Provider Active Start: September 14, 2024 Dr. Rasta Mazariegos DPM Attending Provider Active Start: September 14, 2024 Team Status: Inactive Member Role/Relationship Status Dates Dr. Mei Cummins MD Primary Care Provider Active Start: September 17, 2024 End: September 17, 2024 Dr. Aaron Hurst MD Emergency Provider Active S tart: September 17, 2024 End: September 17, 2024 Statement Processor Relationship Specialty Start Date End Date Mei Cummins MD [address] [place], [place] [id number] PCP - General Family Medicine 12/17/16 Salazar Meraz DO [address] [place], [place] [id number] Hematology/Oncology 06/17/23 Jamshid Brown APRN.MEDICAL DEVICE ASSEMBLER [address] [place], [place] [id number] Cdl A Driver Family Medicine 02/16/24 Team Status: Inactive Member Role/Relationship Status Dates [...] August 24, 2024 End: August 29, 2024 Team Status: Active Member Role/Relationship Status Dates Dr. Mei Cummins MD Primary Care Provider Active Start: September 07, 2024 Dr. Juan Carlos Viveros DPM Referring Provider Active Start: September 07, 2024 Dr. Rasta Mazariegos DPM Other Provider Active St art: September 07, 2024 Dr. Misha Blunt MD Attending Provider Active Start: September 07, 2024 Team Status: Inactive Member Role/Relationship Status Dates Dr. Mei Cummins MD Primary Care Provider Active Start: September 17, 2024 End: September 17, 2024 Dr. Aaron Hurst MD Attending Provider Active S tart: September 17, 2024 End: September 17, 2024 Dr. Aaron Hurst MD Emergency Provider Active S tart: September 17, 2024 End: September 17, 2024 Team Status: Active Member Role/Relationship Status Dates Dr. Mei Cummins MD Primary Care Provider Active Start: September 28, 2024 Dr. Juan Carlos Viveros DPM Referring Provider Active Start: September 28, 2024 Dr. Rasta Mazariegos DPM Attending Provider Active Start: September 28, 2024 Team Status: Inactive Member Role/Relationship Status Dates Dr. Mei Cummins MD Primary Care Provider Active Start: September 29, 2024 End: September 29, 2024 Dr. Mei Cummins MD Referring Provider Active Start: September 29, 2024 End: September 29, 2024 JAYY Otero Attending Provider Active Start: September 29, 2024 End: September 29, 2024 Team Status: Inactive Member Role/Relationship Status Dates Dr. Mei Cummins MD Primary Care Provider Active Start: September 28, 2024 End: September 29, 2024 Dr. Juan Carlos Viveros DPM Referring Provider Active Start: September 28, 2024 End: September 29, 2024 Dr. Rasta Mazariegos DPM Attending Provider Active Start: September 28, 2024 End: September 29, 2024 Goals (unrecognized section and content) Goals may [...] BE BASED ON THE PRIMARY CLINICAL RECORDS. [facility] [employer] provides no warranty or guarantee of the accuracy or completeness of information in this document.
[2024-10-04 22:25] LABS: Anion Gap 13 (5-15); BUN 24 mg/dL (4-19); BUN/Creat Ratio 35.4 RATIO (10-20); Calcium,Total 9.4 mg/dL (7.6-11.0); Carbon Dioxide 24.6 mmol/L (21.0-32.0); Chloride 105 mmol/L (98-108); Estimated Creatinine Clearance 73.51 ml/min (50-250); Glucose 96 mg/dL (70-99); Potassium 4.1 mmol/L (3.3-5.1)
[2024-10-04 23:24] VITALS: BP 124/66; PULSE 85; RESP 18; TEMP 36.6; O2SAT 100
[2024-10-04 23:26] LABS: Mucous, Urine 0 SEEN /hpf (<or=2+); Squamous Epithelial Cells - UA 0 SEEN /hpf (0-5)
[2024-10-04 23:28] LABS: Color, Urine Yellow (Yellow); Glucose, Dipstick Normal (Normal); Ketone-Dipstick Negative (Negative); Leukocyte Esterase-Dipstick Negative /ul (Negative); Nitrite-Dipstick Negative (Negative); Occult Blood-Urine Negative /ul (Negative); Protein-Dipstick 30 mg/dl (Negative); Specific Gravity, Urine 1.010 (1.002-1.030); Urine Bilirubin Dipstick Negative (Negative)
[2024-10-04 23:59] LABS: Red Blood Cells-Urine 0-5 SEEN /hpf (0-5)
== END 2024-10-04 23:34 | disposition home or self-care (01) ==
PROVIDERS: Emergency Provider Surgery; PCP Family Medicine; Visit Provider Surgery
DX: K59.00 Constipation, unspecified (principal); J44.9 Chronic obstructive pulmonary disease, unspecified; Z87.891 Personal history of nicotine dependence; I10 Essential (primary) hypertension; Z86.711 Personal history of pulmonary embolism; I71.43 Infrarenal abdominal aortic aneurysm, without rupture; E78.00 Pure hypercholesterolemia, unspecified; I25.10 Atherosclerotic heart disease of native coronary artery without angina pectoris; K40.90 Unilateral inguinal hernia, without obstruction or gangrene, not specified as recurrent; K80.20 Calculus of gallbladder without cholecystitis without obstruction; I70.0 Atherosclerosis of aorta; Z99.81 Dependence on supplemental oxygen
CPT/HCPCS: 74177; 80048; 81001; 85025; 99285; Q9967; A4216

== ENCOUNTER 2024-10-19 14:30 | Outpatient (RCR) | payer MEDICARE, BC, SELFPAY ==
[2024-10-12 14:58] VITALS: BP 120/57; PULSE 86; RESP 20; TEMP 36.6
--- NOTE | 2024-10-12 19:44 | PN.PCM_ITS ---
History of Present Illness Date of Service: 10/12/24 Chief Complaint: Left medial ankle and left foot ulcers History of Wound: This is an 84-year-old male with a left medial ankle ulcer that had been seeing [employer], Dr. Drew, at the [facility]. The patient has a significant history for COPD, and is on home O2. He also has a history of Prostate CA, Squamous carcinoma of left lung, HTN, anxiety and depression, AAA without rupture, CAD, coronary artery stent placement (multiple) , CABG x 3, former smoker, PAD, PBH, and pulmonary embolism-on anticoagulants, and hyperlipidemia. He has had arterial studies in the past and had some vascular procedures (by Dr. Freeman) to his left leg. He denies a history of diabetes. His providers are all with [facility]. He has had this left medial ankle ulcer for more than 3 months. He had been placing Santyl covered with [employer]. There had not been much improvement to this area, and he was referred to see us by [facility], and that Dr. Drew also suggested he get a second opinion. The patient is seen at this time as a courtesy to his regular Wound Center provider, Dr. Rasta Mazariegos, who is unavailable this week. Progress of Wound: Stable full-thickness wound to the left ankle and left big toe joint. Subjective Subjective Patient is an 84-year-old male presenting to the wound care center today for follow-up and evaluation of full-thickness wound to the medial ankle and dorsal big toe joint of the right foot. Patient has been doing dressing changes with Betadine paint, gauze and light compression wrap. The admit to improvement in decreased pain during today's visit. He is take the antibiotics as prescribed. He denies any new onset of trauma. Denies constitutional symptoms. No other complaints at this time. Objective Data Objective Data Vital Signs: Vital Signs Temp Pulse Resp BP O2 Del Method O2 Flow Rate 97.8 F 86 20 H 120/57 L Nasal Cannula 4 10/12/24 14:58 10/12/24 14:58 10/12/24 14:58 10/12/24 14:58 10/12/24 14:58 10/12/24 14:58 Oxygen Flow Rate (L/min) 4 Oxygen Delivery Method Nasal Cannula Lab / Micro Data Micro: Microbiology 09/15/24 14:41 Wound - Toe Gram Stain - Final 09/15/24 14:41 Wound - Toe Wound Culture - Final Staphylococcus aureus 09/15/24 14:41 Wound - Toe Anaerobic Culture - Final No anaerobic bacteria isolated. Physical Exam Narrative Vascular: DP and PT pulses are faintly palpable. CFT is brisk. Improved erytherma. Neurological: Light touch intact. Patient does despond painful stimuli. Dermatological: Full-thickness wound to the left medial ankle measuring 0.6 x 0.9 x 0.3 cm. Full-thickness wound to the dorsal aspect left foot first metatarsal phalangeal joint measuring 0.8 x 1.8 x 0.2 cm. Excisional debridement down to and including subcutaneous tissue, fascia and muscle to the left medial ankle full-thickness wound with a number 3 mm dermal curette and without incident. Predebridement measurement was 0.5 x 0.7 x 0.2 cm. Postdebridement measurement is 0.6 x 0.9 x 0.3 cm. Excisional debridement down to including subcutaneous tissue to left lower extremity first metatarsal phalangeal joint dorsally with a #3 minimally dermal curette done without incident. Predebridement measurement was 0.7 x 1.6 x 0.2 cm. Postdebridement measurement is 0.8 x 1.8 x 0.2 cm. Musculoskeletal: Pain on palpation to the left 1st MPJ full thickness wound. No pain with calf pressure. Debridement Note Debridement Note Debridement Free Text: Excisional debridement down to and including subcutaneous tissue, fascia and muscle to the left medial ankle full-thickness wound with a number 3 mm dermal curette and without incident. Predebridement measurement was 0.5 x 0.7 x 0.2 cm. Postdebridement measurement is 0.6 x 0.9 x 0.3 cm. Excisional debridement down to including subcutaneous tissue to left lower extremity first metatarsal phalangeal joint dorsally with a #3 minimally dermal curette done without incident. Predebridement measurement was 0.7 x 1.6 x 0.2 cm. Postdebridement measurement is 0.8 x 1.8 x 0.2 cm. Post-Debridement Measurements and Additional Note: Post-Debridement Measurements/Treatment FABIAN - Nurse 1 - General Ulcer Assessment Start: 10/12/24 14:57 Freq: Status: Active Protocol: SHANTI Activity Type Activity Date Activity User E-sign Co-sign Detail Recorded Client Recorded Date Recorded By Document 10/12/24 14:58 [id number] 10/12/24 15:01 10/12/24 14:58 - Today's Visit Information Type of service Follow-up Visit (Physician/MANAGER CL[facility] ) Arrival Mode Ambulatory, Wheelchair Transfer Assistance None Patient Identification Verified (Name & Yes ) Vital Signs Temperature (97.8 F-99.1 F) 97.8 F Temperature Source Temporal Pulse Rate (60-100) 86 Pulse Location Monitor Respiratory Rate (12-18) 20 H Respiratory rate source Observation Oxygen Delivery Method Nasal Cannula O2 L/MIN (L/min) 4 Blood Pressure (90/60-120/80) 120/57 L Blood Pressure Mean (mm Hg) 78 Source Monitor Position Sitting Blood Pressure Location Right Arm History Since Last Visit- (Skip if this is Patient's initial visit) Have you changed medications since your No last visit? Any new allergies or adverse reactions No Had a fall/change in ADL's that may No increase risk of falls Signs or symptoms of abuse and/or No neglect since last visit Have you been in the hospital since your No last visit? Has dressing in place as prescribed Yes Has compression in place as prescribed Yes Has offloadiing in place as prescribed N/A Experienced any changes in pain level or No management Left Footwear Regular Shoe Pain Scale: 0-10 Numeric Is Patient Pain Free? Yes - Nurse 1 - General Ulcer Measurement Start: 10/12/24 14:57 Freq: Status: Active Protocol: Activity Type Activity Date Activity User E-sign Co-sign Detail Recorded Client Recorded Date Recorded By Document 10/12/24 14:58 [id number] 10/12/24 15:01 10/12/24 14:58 Wound Center Nurse 1 3-left foot -Current Size (cm) - Length 0.6 -Current Size (cm) - Width 1.8 -Current Size (cm) - Depth 0.3 -Total Square Cm 1.08 -Photo Taken No -Epithelialization None Present -Tunneling No -Undermining/Tunneling No -Circular Undermining No -Exudate Amt Small -Exudate Type Yellow/Green -Wound Margin Distinct, Outline Attached -Granulation Amt Small (1-33%) -Granulation Quality Pale -Slough/Fibrin Yes -Necrosis Amt Medium (34-66%) -Necrotic Tissue Type Adherent Slough -Texture (Bell-wound Skin Appearance) Assessed -Moisture (Bell-wound Skin Appearance) Assessed -Color (Bell-wound Skin Appearance) Assessed, Erythema -Temperature (Bell-wound Skin No Abnormality Appearance) (Pt Warm) -Tenderness on Palpation (Bell-wound Yes Skin Appearance) -Ulcer Cleansing Rinsed/ Irrigated with Saline -Foul Odor after Cleansing No -Anesthetic Used 5% Lidocaine Gel #1- L MEDIAL ANKLE -Combined with other wound No -Current Size (cm) - Length 0.6 -Current Size (cm) - Width 1.0 -Current Size (cm) - Depth 0.4 -Total Square Cm 0.60 -Photo Taken No -Epithelialization None Present -Tunneling No -Undermining/Tunneling No -Circular Undermining No -Exudate Amt Small -Exudate Type Yellow/Green -Wound Margin Distinct, Outline Attached -Granulation Amt Small (1-33%) -Granulation Quality Strong -Slough/Fibrin No -Necrosis Amt Medium (34-66%) -Necrotic Tissue Type Adherent Slough -Texture (Bell-wound Skin Appearance) Assessed -Moisture (Bell-wound Skin Appearance) Assessed -Color (Bell-wound Skin Appearance) Assessed, Erythema -Temperature (Bell-wound Skin No Abnormality Appearance) (Pt Warm) -Tenderness on Palpation (Bell-wound Yes Skin Appearance) -Ulcer Cleansing Rinsed/ Irrigated with Saline -Foul Odor after Cleansing No -Anesthetic Used 5% Lidocaine Gel WC - Nurse 2 - General Ulcer CM Notes Start: 10/12/24 14:57 Freq: Status: Active Protocol: Activity Type Activity Date Activity User E-sign Co-sign Detail Recorded Client Recorded Date Recorded By Document 10/12/24 15:14 SONNY [id number] 10/12/24 15:18 SONNY 10/12/24 15:14 Wound Center Nurse 2 3-left foot -Time 15:14 -Correct Patient Yes -Correct Side, Site, Position Yes -Correct Procedure Yes -Procedure Performed Yes -Type of Procedure Debridement -Clinical Debridement Muscle / Fascia -Tissue Removed Muscle -Post Debridement (cm) - Length 0.8 -Post Debridement (cm) - Width 1.8 -Post Debridement (cm) - Depth 0.2 -Total Square (Post) (cm) 1.44 -Area of Debridement (cm) - Length 0.8 -Area of Debridement (cm) - Width 1.8 -Total Square (Area) (cm) 1.44 -Tunneling No -Undermining/Tunneling No -Circular Undermining No -Wound/Ulcer Outcome Not Healed -Ulcer Cleansing Rinsed/ Irrigated with Saline -Foul Odor after Cleansing No -Bioengineered Tissue No -Bleeding Controlled with Pressure -Treatment Response Procedure Tolerated Well -Offloading No -Debridement - Muscle / Fascia, 1st No 20sq cm #1- L MEDIAL ANKLE -Time 15:15 -Correct Patient Yes -Correct Side, Site, Position Yes -Correct Procedure Yes -Procedure Performed Yes -Type of Procedure Debridement -Clinical Debridement Muscle / Fascia -Tissue Removed Muscle -Post Debridement (cm) - Length 0.6 -Post Debridement (cm) - Width 0.9 -Post Debridement (cm) - Depth 0.3 -Total Square (Post) (cm) 0.54 -Area of Debridement (cm) - Length 0.6 -Area of Debridement (cm) - Width 0.9 -Total Square (Area) (cm) 0.54 -Tunneling No -Undermining/Tunneling No -Circular Undermining No -Wound/Ulcer Outcome Not Healed -Ulcer Cleansing Rinsed/ Irrigated with Saline -Foul Odor after Cleansing No -Bioengineered Tissue No -Bleeding Controlled with Pressure -Treatment Response Procedure Tolerated Well -Offloading No -Debridement - Subq, 1st 20sq cm No -Debridement - Muscle / Fascia, 1st Yes 20sq cm Pain Scale: 0-10 Numeric Is Patient Pain Free? Yes - Nurse 3 - General Ulcer D/C NN Start: 10/12/24 14:57 Freq: Status: Active Protocol: Activity Type Activity Date Activity User E-sign Co-sign Detail Recorded Client Recorded Date Recorded By Document 10/12/24 15:36 [id number] 10/12/24 15:37 10/12/24 15:36 Wound Care Center Nurse 3 3-left foot -Ulcer Cleansing Not Cleansed -Foul Odor after Cleansing No -Primary Dressing Covered/Secured with Dry Gauze,Dry Gauze & Roll Gauze,Secured with Tape -Other Covering betadine #1- L MEDIAL ANKLE -Ulcer Cleansing Not Cleansed -Foul Odor after Cleansing No -Primary Dressing Covered/Secured with Dry Gauze & Roll Gauze, Secured with Tape -Other Covering betadine LLE -Lotion applied to leg before No compression wrap -Tubular Bandage Single Layer -Size of Tubigrip Used Size E -Size E ($) 1 Pain Scale: 0-10 Numeric Is Patient Pain Free? 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 All findings were discussed with the patient. All questions were answered to the patient's satisfaction. Excisional debridement down to and including subcutaneous tissue, fascia and muscle to the left medial ankle full-thickness wound with a number 3 mm dermal curette and without incident. Predebridement measurement was 0.5 x 0.7 x 0.2 cm. Postdebridement measurement is 0.6 x 0.9 x 0.3 cm. Excisional debridement down to including subcutaneous tissue to left lower extremity first metatarsal phalangeal joint dorsally with a #3 minimally dermal curette done without incident. Predebridement measurement was 0.7 x 1.6 x 0.2 cm. Postdebridement measurement is 0.8 x 1.8 x 0.2 cm. Areas were cleaned and patted dry. Betadine soaked gauze followed by dry sterile dressing and compression were donned to the left lower extremity. Patient's wounds are improving after physical exam. Patient is planning to see vascular surgery next month around the . The patient will follow-up with Dr. Mazariegos in 1 week. (2) Non-pressure chronic ulcer of other part of left foot with fat layer exposed: CODE(S): L97.522 - Non-pressure chronic ulcer of other part of left foot with fat layer exposed (3) Other specified peripheral vascular diseases: CODE(S): I73.89 - Other specified peripheral vascular diseases
[2024-10-19 14:54] VITALS: BP 120/70; PULSE 68; RESP 17; TEMP 36.1
--- NOTE | 2024-10-20 08:39 | WC ---
PHOTO-LEFT FOOT/LEFT ANKLE 10/19/24
--- NOTE | 2024-10-20 11:07 | PCM.WC.PN ---
History of Present Illness Date of Service: 10/19/24 Chief Complaint: Left medial ankle and left foot ulcers History of Wound: This is an 84-year-old male with a left medial ankle ulcer that had been seeing Software Engineering Manager, Dr. Drew, at the [facility]. The patient has a significant history for COPD, and is on home O2. He also has a history of Prostate CA, Squamous carcinoma of left lung, HTN, anxiety and depression, AAA without rupture, CAD, coronary artery stent placement (multiple), CABG x 3, former smoker, PAD, PBH, and pulmonary embolism-on anticoagulants, and hyperlipidemia. He has had arterial studies in the past and had some vascular procedures (by Dr. Freeman) to his left leg. He denies a history of diabetes. His providers are all with [facility]. He has had this left medial ankle ulcer for more than 3 months. He had been placing Santyl covered with Mckin[employer] SAP. There had not been much improvement to this area, and he was referred to see us by [facility], and that Dr. Drew also suggested he get a second opinion. The patient is seen at this time as a courtesy to his regular Wound Center provider, Dr. Rasta Mazariegos, who is unavailable this week. Progress of Wound: Stable full-thickness wound to the left ankle and left big toe joint. Subjective Subjective Patient is 84-year-old male presenting to clinic today follow-up evaluation of full-thickness wounds to the left foot and ankle. Patient has been compliant with dressing changes. Patient is still waiting to follow-up with vascular surgery for consultation. He denies any redness or drainage to the lower left lower extremity. He has been very grateful for his care. He denies trauma. Denies constitutional symptoms. No other pedal complaints at this time. Objective Data Objective Data Vital Signs: Vital Signs Temp Pulse Resp BP O2 Del Method O2 Flow Rate 97 F L 68 17 120/70 Room Air 4 10/19/24 14:54 10/19/24 14:54 10/19/24 14:54 10/19/24 14:54 10/19/24 14:54 10/12/24 14:58 Oxygen Flow Rate (L/min) 4 Oxygen Delivery Method Room Air Physical Exam Narrative Vascular: DP and PT pulses are faintly palpable. CFT is brisk. Improved erytherma. Neurological: Light touch intact. Patient does despond painful stimuli. Dermatological: Full-thickness wound to the left medial ankle measuring 0.9 x 1.0 x 0.3 cm. Full-thickness wound to the dorsal aspect left foot first metatarsal phalangeal joint measuring 0.9 x 1.8 x 0.1 cm. Excisional debridement down to and including subcutaneous tissue, fascia and muscle to the left medial ankle full-thickness wound with a number 3 mm dermal curette and without incident. Predebridement measurement was 0.8 x 0.8 x 0.2 cm. Postdebridement measurement is 0.9 x 1.0 x 0.3 cm. Excisional debridement down to including subcutaneous tissue to left lower extremity first metatarsal phalangeal joint dorsally with a 3 mm dermal curette done without incident. Predebridement measurement was 0.8 x 1.7 x 0.1 cm. Postdebridement measurement is 0.9 x 1.8 x 0.1 cm. Musculoskeletal: no pain on palpation to the left 1st MPJ full thickness wound. No pain with calf pressure. Debridement Note Debridement Note Debridement Free Text: Excisional debridement down to and including subcutaneous tissue, fascia and muscle to the left medial ankle full-thickness wound with a number 3 mm dermal curette and without incident. Predebridement measurement was 0.8 x 0.8 x 0.2 cm. Postdebridement measurement is 0.9 x 1.0 x 0.3 cm. Excisional debridement down to including subcutaneous tissue to left lower extremity first metatarsal phalangeal joint dorsally with a 3 mm dermal curette done without incident. Predebridement measurement was 0.8 x 1.7 x 0.1 cm. Postdebridement measurement is 0.9 x 1.8 x 0.1 cm. Post-Debridement Measurements and Additional Note: Post-Debridement Measurements/Treatment FABIAN - Nurse 1 - General Ulcer Assessment Start: 10/12/24 14:57 Freq: Status: Active Protocol: LOWEXT Activity Type Activity Date Activity User E-sign Co-sign Detail Recorded Client Recorded Date Recorded By Document 10/12/24 14:58 GM [id number] 10/12/24 15:01 GM Document 10/19/24 14:54 ML [id number] 10/19/24 14:56 ML 10/12/24 10/19/24 14:58 14:54 - Today's Visit Information Type of service Follow-up Visit Follow-up Visit (Physician/DEPARTMENT OF MATHEMATICS CHAIR (Physician/DEPARTMENT OF MATHEMATICS CHAIR ) ) Arrival Mode Ambulatory, Wheelchair Wheelchair Transfer Assistance None Accompanied by Patient Identification Verified (Name & Yes Yes ) Vital Signs Temperature (97.8 F-99.1 F) 97.8 F 97 F L Temperature Source Temporal Temporal Pulse Rate (60-100) 86 68 Pulse Location Monitor Monitor Respiratory Rate (12-18) 20 H 17 Respiratory rate source Observation Observation Oxygen Delivery Method Nasal Cannula Room Air O2 L/MIN (L/min) 4 Blood Pressure (90/60-120/80) 120/57 L 120/70 Blood Pressure Mean (mm Hg) 78 86 Source Monitor Monitor Position Sitting Sitting Blood Pressure Location Right Arm History Since Last Visit- (Skip if this is Patient's initial visit) Have you changed medications since your No No last visit? Any new allergies or adverse reactions No No Had a fall/change in ADL's that may No No increase risk of falls Signs or symptoms of abuse and/or No No neglect since last visit Have you been in the hospital since your No No last visit? Has dressing in place as prescribed Yes Yes Has compression in place as prescribed Yes Has offloadiing in place as prescribed N/A Experienced any changes in pain level or No management Left Footwear Regular Shoe Regular Shoe Right Footwear Regular Shoe Pain Scale: 0-10 Numeric Is Patient Pain Free? Yes Yes - Nurse 1 - General Ulcer Measurement Start: 10/12/24 14:57 Freq: Status: Active Protocol: Activity Type Activity Date Activity User E-sign Co-sign Detail Recorded Client Recorded Date Recorded By Document 10/12/24 14:58 [id number] 10/12/24 15:01 Document 10/19/24 14:54 [id number] 10/19/24 14:56 10/12/24 10/19/24 14:58 14:54 Wound Center Nurse 1 3-left foot -Combined with other wound No -Current Size (cm) - Length 0.6 2 -Current Size (cm) - Width 1.8 1 -Current Size (cm) - Depth 0.3 0.2 -Total Square Cm 1.08 2 -Photo Taken No -Epithelialization None Present -Tunneling No No -Undermining/Tunneling No No -Circular Undermining No No -Exudate Amt Small Medium -Exudate Type Yellow/Green Serosanguineous -Wound Margin Distinct, Distinct, Outline Outline Attached Attached -Granulation Amt Small (1-33%) Small (1-33%) -Granulation Quality Pale Red -Slough/Fibrin Yes Yes -Necrosis Amt Medium (34-66%) Large (67-100%) -Necrotic Tissue Type Adherent Slough Adherent Slough -Texture (Bell-wound Skin Appearance) Assessed Assessed, Scarring -Moisture (Bell-wound Skin Appearance) Assessed Assessed -Color (Bell-wound Skin Appearance) Assessed, Assessed Erythema -Temperature (Bell-wound Skin No Abnormality No Abnormality Appearance) (Pt Warm) (Pt Warm) -Tenderness on Palpation (Bell-wound Yes No Skin Appearance) -Ulcer Cleansing Rinsed/ Rinsed/ Irrigated with Irrigated with Saline Saline -Foul Odor after Cleansing No No -Anesthetic Used 5% Lidocaine 5% Lidocaine Gel Gel #1- L MEDIAL ANKLE -Combined with other wound No No -Current Size (cm) - Length 0.6 6 -Current Size (cm) - Width 1.0 4 -Current Size (cm) - Depth 0.4 0.2 -Total Square Cm 0.60 24 -Photo Taken No -Epithelialization None Present -Tunneling No No -Undermining/Tunneling No No -Circular Undermining No No -Exudate Amt Small Medium -Exudate Type Yellow/Green Serosanguineous -Wound Margin Distinct, Distinct, Outline Outline Attached Attached -Granulation Amt Small (1-33%) Small (1-33%) -Granulation Quality [place] Red -Slough/Fibrin No Yes -Necrosis Amt Medium (34-66%) Large (67-100%) -Necrotic Tissue Type Adherent Slough Adherent Slough -Texture (Bell-wound Skin Appearance) Assessed Assessed, Scarring -Moisture (Bell-wound Skin Appearance) Assessed Assessed -Color (Bell-wound Skin Appearance) Assessed, Assessed Erythema -Temperature (Bell-wound Skin No Abnormality No Abnormality Appearance) (Pt Warm) (Pt Warm) -Tenderness on Palpation (Bell-wound Yes No Skin Appearance) -Ulcer Cleansing Rinsed/ Rinsed/ Irrigated with Irrigated with Saline Saline -Foul Odor after Cleansing No No -Anesthetic Used 5% Lidocaine 5% Lidocaine Gel Gel WC - Nurse 2 - General Ulcer CM Notes Start: 10/12/24 14:57 Freq: Status: Active Protocol: Activity Type Activity Date Activity User E-sign Co-sign Detail Recorded Client Recorded Date Recorded By Document 10/12/24 15:14 JF [id number] 10/12/24 15:18 JF Document 10/19/24 15:37 DS [id number] 10/19/24 15:43 DS 10/12/24 10/19/24 15:14 15:37 Wound Center Nurse 2 3-left foot -Time 15:14 15:37 -Correct Patient Yes Yes -Correct Side, Site, Position Yes Yes -Correct Procedure Yes Yes -Procedure Performed Yes Yes -Type of Procedure Debridement Debridement -Clinical Debridement Muscle / Fascia Subcutaneous -Tissue Removed Muscle Subcutaneous -Post Debridement (cm) - Length 0.8 0.9 -Post Debridement (cm) - Width 1.8 1.8 -Post Debridement (cm) - Depth 0.2 0.1 -Total Square (Post) (cm) 1.44 1.62 -Area of Debridement (cm) - Length 0.8 0.9 -Area of Debridement (cm) - Width 1.8 1.8 -Total Square (Area) (cm) 1.44 1.62 -Tunneling No No -Undermining/Tunneling No No -Circular Undermining No No -Wound/Ulcer Outcome Not Healed Not Healed -Ulcer Cleansing Rinsed/ Rinsed/ Irrigated with Irrigated with Saline Saline -Foul Odor after Cleansing No No -Bioengineered Tissue No No -Bleeding Controlled with Pressure Pressure -Treatment Response Procedure Procedure Tolerated Well Tolerated Well -Offloading No -Debridement - Subq, 1st 20sq cm Yes -Debridement - Muscle / Fascia, 1st No 20sq cm #1- L MEDIAL ANKLE -Time 15:15 15:37 -Correct Patient Yes Yes -Correct Side, Site, Position Yes Yes -Correct Procedure Yes Yes -Procedure Performed Yes Yes -Type of Procedure Debridement Debridement -Clinical Debridement Muscle / Fascia Muscle / Fascia -Tissue Removed Muscle Muscle -Post Debridement (cm) - Length 0.6 0.9 -Post Debridement (cm) - Width 0.9 1.0 -Post Debridement (cm) - Depth 0.3 0.3 -Total Square (Post) (cm) 0.54 0.90 -Area of Debridement (cm) - Length 0.6 0.9 -Area of Debridement (cm) - Width 0.9 1.0 -Total Square (Area) (cm) 0.54 0.90 -Tunneling No No -Undermining/Tunneling No No -Circular Undermining No No -Wound/Ulcer Outcome Not Healed Not Healed -Ulcer Cleansing Rinsed/ Rinsed/ Irrigated with Irrigated with Saline Saline -Foul Odor after Cleansing No No -Bioengineered Tissue No No -Bleeding Controlled with Pressure Pressure -Treatment Response Procedure Procedure Tolerated Well Tolerated Well -Offloading No -Debridement - Subq, 1st 20sq cm No -Debridement - Muscle / Fascia, 1st Yes Yes 20sq cm Pain Scale: 0-10 Numeric Is Patient Pain Free? Yes Yes - Nurse 3 - General Ulcer D/C NN Start: 10/12/24 14:57 Freq: Status: Active Protocol: Activity Type Activity Date Activity User E-sign Co-sign Detail Recorded Client Recorded Date Recorded By Document 10/12/24 15:36 [id number] 10/12/24 15:37 Document 10/19/24 15:51 [id number] 10/19/24 15:52 10/12/24 10/19/24 15:36 15:51 Wound Care Center Nurse 3 3-left foot -Ulcer Cleansing Not Cleansed -Foul Odor after Cleansing No -Primary Dressing Applied Promogran Tray Matter -Other Dressing blot tray with betadine -Primary Dressing Covered/Secured with Dry Gauze,Dry Dry Gauze, Gauze & Roll Secured with Gauze,Secured Tape with Tape -Other Covering betadine -Promogran Tray Matter 1 #1- L MEDIAL ANKLE -Ulcer Cleansing Not Cleansed -Foul Odor after Cleansing No -Other Dressing tray blot with betadine -Primary Dressing Covered/Secured with Dry Gauze & Dry Gauze Roll Gauze, Secured with Tape -Other Covering betadine LLE -Lotion applied to leg before No compression wrap -Tubular Bandage Single Layer Single Layer -Size of Tubigrip Used Size E Size E -Size E ($) 1 1 Pain Scale: 0-10 Numeric Is Patient Pain Free? 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 All findings were discussed with the patient. All questions were answered to the patient's satisfaction. Excisional debridement down to and including subcutaneous tissue, fascia and muscle to the left medial ankle full-thickness wound with a number 3 mm dermal curette and without incident. Predebridement measurement was 0.8 x 0.8 x 0.2 cm. Postdebridement measurement is 0.9 x 1.0 x 0.3 cm. Excisional debridement down to including subcutaneous tissue to left lower extremity first metatarsal phalangeal joint dorsally with a 3 mm dermal curette done without incident. Predebridement measurement was 0.8 x 1.7 x 0.1 cm. Postdebridement measurement is 0.9 x 1.8 x 0.1 cm. Areas were wiped clean and patted dry pink moist Tray followed by dry sterile dressing light compression was donned left lower extremity. Patient will change the dressing every 3 days as above. The patient will follow-up with Dr. Mazariegos in 2 week. (2) Non-pressure chronic ulcer of other part of left foot with fat layer exposed: CODE(S): L97.522 - Non-pressure chronic ulcer of other part of left foot with fat layer exposed (3) Other specified peripheral vascular diseases: CODE(S): I73.89 - Other specified peripheral vascular diseases
== END 2024-10-30 23:59 | disposition home or self-care (01) ==
LOC: WC 14:30
PROVIDERS: PCP Family Medicine; Referring Provider Podiatrist Foot & Ankle Surgery; Visit Provider Podiatrist Foot & Ankle Surgery
DX: L97.325 Non-pressure chronic ulcer of left ankle with muscle involvement without evidence of necrosis (principal); L97.522 Non-pressure chronic ulcer of other part of left foot with fat layer exposed; J44.9 Chronic obstructive pulmonary disease, unspecified; I25.10 Atherosclerotic heart disease of native coronary artery without angina pectoris; F41.9 Anxiety disorder, unspecified; Z95.5 Presence of coronary angioplasty implant and graft; E78.5 Hyperlipidemia, unspecified; Z87.891 Personal history of nicotine dependence; I10 Essential (primary) hypertension; Z99.81 Dependence on supplemental oxygen; I73.89 Other specified peripheral vascular diseases; Z95.1 Presence of aortocoronary bypass graft; Z86.711 Personal history of pulmonary embolism; N40.0 Benign prostatic hyperplasia without lower urinary tract symptoms; Z85.46 Personal history of malignant neoplasm of prostate
CPT/HCPCS: 11042; 11043

== ENCOUNTER 2024-11-23 14:15 | Outpatient (RCR) | payer MEDICARE, BC, SELFPAY ==
[2024-11-02 14:42] VITALS: BP 95/43; PULSE 73; RESP 16; TEMP 36.2
--- NOTE | 2024-11-02 15:22 | PCM.WC.PN ---
History of Present Illness Date of Service: 11/02/24 Chief Complaint: Left medial ankle and left foot ulcers History of Wound: This is an 84-year-old male with a left medial ankle ulcer that had been seeing Broadcaster, Dr. Drew, at the [facility]. The patient has a significant history for COPD, and is on home O2. He also has a history of Prostate CA, Squamous carcinoma of left lung, HTN, anxiety and depression, AAA without rupture, CAD, coronary artery stent placement (multiple), CABG x 3, former smoker, PAD, PBH, and pulmonary embolism-on anticoagulants, and hyperlipidemia. He has had arterial studies in the past and had some vascular procedures (by Dr. Freeman) to his left leg. He denies a history of diabetes. His providers are all with [facility]. He has had this left medial ankle ulcer for more than 3 months. He had been placing Santyl covered with [place] [facility]. There had not been much improvement to this area, and he was referred to see us by [facility], and that Dr. Drew also suggested he get a second opinion. The patient is seen at this time as a courtesy to his regular Wound [facility] provider, Dr. Rasta Mazariegos, who is unavailable this week. Progress of Wound: Slow healing full-thickness wounds to the left medial ankle and dorsal first metatarsophalangeal joint. Waiting on vascular consultation Subjective Subjective Patient is 84-year-old male presenting to clinic today follow-up evaluation of full-thickness wounds to the left foot and ankle. Patient has been compliant with dressing changes. Patient is admitting to some more pain and redness to the 2 wounds to the left foot. He is concerned for infection. Still waiting for vascular follow-up. Denies constitutional symptoms. Denies trauma. No other pedal complaints at this time. Objective Data Objective Data Vital Signs: Vital Signs Temp Pulse Resp BP O2 Del Method 97.2 F L 73 16 95/43 L Nasal Cannula 11/02/24 14:42 11/02/24 14:42 11/02/24 14:42 11/02/24 14:42 11/02/24 14:42 Oxygen Delivery Method Nasal Cannula Physical Exam Narrative Vascular: DP and PT pulses are faintly palpable. CFT is brisk. Blanchable erythema appreciated to the ankle and first metatarsal phalangeal joint. No sign of proximal streaking. Neurological: Light touch intact. Patient does despond painful stimuli. Dermatological: Full-thickness wound to the left medial ankle measuring 0.8 x 1.0 x 0.3 cm. Full-thickness wound to the dorsal aspect left foot first metatarsal phalangeal joint measuring 0.9 x 1.7 x 0.2 cm. Excisional debridement down to and including subcutaneous tissue, fascia and muscle to the left medial ankle full-thickness wound with a number 3 mm dermal curette and without incident. Predebridement measurement was 0.7 x 0.9 x 0.2 cm. Postdebridement measurement is 0.8 x 1.0 x 0.3 cm. Excisional debridement down to including subcutaneous tissue to left lower extremity first metatarsal phalangeal joint dorsally with a 3 mm dermal curette done without incident. Predebridement measurement was 0.8 x 1.5 x 0.1 cm. Postdebridement measurement is 0.9 x 1.7 x 0.2 cm. Musculoskeletal: Mild pain on palpation to the left 1st MPJ full thickness wound. No pain with calf pressure. Debridement Note Debridement Note Debridement Free Text: Excisional debridement down to and including subcutaneous tissue, fascia and muscle to the left medial ankle full-thickness wound with a number 3 mm dermal curette and without incident. Predebridement measurement was 0.7 x 0.9 x 0.2 cm. Postdebridement measurement is 0.8 x 1.0 x 0.3 cm. Excisional debridement down to including subcutaneous tissue to left lower extremity first metatarsal phalangeal joint dorsally with a 3 mm dermal curette done without incident. Predebridement measurement was 0.8 x 1.5 x 0.1 cm. Postdebridement measurement is 0.9 x 1.7 x 0.2 cm Post-Debridement Measurements and Additional Note: Post-Debridement Measurements/Treatment - Nurse 1 - General Ulcer Assessment Start: 11/02/24 14:42 Freq: Status: Active Protocol: MILENA Activity Type Activity Date Activity User E-sign Co-sign Detail Recorded Client Recorded Date Recorded By Document 11/02/24 14:42 KW [id number] 11/02/24 14:49 KW 11/02/24 14:42 - Today's Visit Information Type of service Follow-up Visit (Physician/HAND FORMER HELPER ) Arrival Mode Wheelchair Accompanied by Patient Identification Verified (Name & Yes ) Vital Signs Temperature (97.8 F-99.1 F) 97.2 F L Temperature Source Temporal Pulse Rate (60-100) 73 Pulse Location Monitor Respiratory Rate (12-18) 16 Respiratory rate source Observation Oxygen Delivery Method Nasal Cannula Blood Pressure (90/60-120/80) 95/43 L Blood Pressure Mean (mm Hg) 60 Source Monitor Position Sitting Blood Pressure Location Left Arm History Since Last Visit- (Skip if this is Patient's initial visit) Have you changed medications since your No last visit? Any new allergies or adverse reactions No Had a fall/change in ADL's that may No increase risk of falls Signs or symptoms of abuse and/or No neglect since last visit Have you been in the hospital since your No last visit? Has dressing in place as prescribed Yes Has compression in place as prescribed Yes Has offloadiing in place as prescribed Yes Experienced any changes in pain level or No management Pain Scale: 0-10 Numeric Is Patient Pain Free? Yes WC - Nurse 1 - General Ulcer Measurement Start: 11/02/24 14:42 Freq: Status: Active Protocol: Activity Type Activity Date Activity User E-sign Co-sign Detail Recorded Client Recorded Date Recorded By Document 11/02/24 14:42 RAYMOND [id number] 11/02/24 14:49 RAYMOND 11/02/24 14:42 Wound Center Nurse 1 3-left foot -Current Size (cm) - Length 0.8 -Current Size (cm) - Width 1.9 -Current Size (cm) - Depth 0.3 -Total Square Cm 1.52 -Photo Taken Yes -Exudate Amt Medium -Exudate Type Serosanguineous -Wound Margin Distinct, Outline Attached -Granulation Amt None Present (0 %) -Necrosis Amt Large (67-100%) -Necrotic Tissue Type Adherent Slough -Structure Exposed N/A -Texture (Bell-wound Skin Appearance) Scarring -Moisture (Bell-wound Skin Appearance) Maceration -Color (Bell-wound Skin Appearance) Erythema -Temperature (Bell-wound Skin No Abnormality Appearance) (Pt Warm) -Tenderness on Palpation (Bell-wound No Skin Appearance) -Ulcer Cleansing Rinsed/ Irrigated with Saline -Foul Odor after Cleansing No -Anesthetic Used 5% Lidocaine Gel #1- L MEDIAL ANKLE -Current Size (cm) - Length 0.8 -Current Size (cm) - Width 0.8 -Current Size (cm) - Depth 0.3 -Total Square Cm 0.64 -Photo Taken Yes -Maximum Distance #2 (cm) 0.2 -Circular Undermining Yes -Exudate Amt Medium -Exudate Type Serosanguineous -Wound Margin Distinct, Outline Attached -Granulation Amt None Present (0 %) -Necrosis Amt Small (1-33%) -Structure Exposed N/A -Texture (Bell-wound Skin Appearance) Scarring -Moisture (Bell-wound Skin Appearance) Maceration -Color (Bell-wound Skin Appearance) Erythema -Temperature (Bell-wound Skin No Abnormality Appearance) (Pt Warm) -Ulcer Cleansing Soap and Water -Foul Odor after Cleansing No -Anesthetic Used 5% Lidocaine Gel Left Calf (cm) 27.5 Left Ankle (cm) 19.7 WC - Nurse 2 - General Ulcer CM Notes Start: 11/02/24 14:42 Freq: Status: Active Protocol: Activity Type Activity Date Activity User E-sign Co-sign Detail Recorded Client Recorded Date Recorded By Document 11/02/24 15:07 SONNY [id number] 11/02/24 15:11 SONNY 11/02/24 15:07 Wound Center Nurse 2 3-left foot -Time 15:08 -Correct Patient Yes -Correct Side, Site, Position Yes -Correct Procedure Yes -Procedure Performed Yes -Type of Procedure Debridement -Clinical Debridement Muscle / Fascia -Tissue Removed Muscle -Post Debridement (cm) - Length 0.9 -Post Debridement (cm) - Width 1.7 -Post Debridement (cm) - Depth 0.2 -Total Square (Post) (cm) 1.53 -Area of Debridement (cm) - Length 0.9 -Area of Debridement (cm) - Width 1.7 -Total Square (Area) (cm) 1.53 -Tunneling No -Undermining/Tunneling No -Circular Undermining No -Wound/Ulcer Outcome Not Healed -Ulcer Cleansing Rinsed/ Irrigated with Saline -Foul Odor after Cleansing No -Bioengineered Tissue No -Bleeding Controlled with Pressure -Treatment Response Procedure Tolerated Well -Offloading No -Debridement - Muscle / Fascia, 1st No 20sq cm #1- L MEDIAL ANKLE -Time 15:09 -Correct Patient Yes -Correct Side, Site, Position Yes -Correct Procedure Yes -Procedure Performed Yes -Type of Procedure Debridement -Clinical Debridement Muscle / Fascia -Tissue Removed Muscle -Post Debridement (cm) - Length 0.8 -Post Debridement (cm) - Width 1.0 -Post Debridement (cm) - Depth 0.3 -Total Square (Post) (cm) 0.80 -Area of Debridement (cm) - Length 0.8 -Area of Debridement (cm) - Width 1.0 -Total Square (Area) (cm) 0.80 -Tunneling No -Undermining/Tunneling No -Circular Undermining No -Wound/Ulcer Outcome Not Healed -Ulcer Cleansing Rinsed/ Irrigated with Saline -Foul Odor after Cleansing No -Bioengineered Tissue No -Bleeding Controlled with Pressure -Treatment Response Procedure Tolerated Well -Offloading No -Debridement - Muscle / Fascia, 1st Yes 20sq cm Pain Scale: 0-10 Numeric Is Patient Pain Free? Yes - Nurse 3 - General Ulcer D/C NN Start: 11/02/24 14:42 Freq: Status: Active Protocol: Activity Type Activity Date Activity User E-sign Co-sign Detail Recorded Client Recorded Date Recorded By Document 11/02/24 15:21 [facility] [id number] 11/02/24 15:22 [facility] 11/02/24 15:21 Wound Care Center Nurse 3 3-left foot -Other Dressing BETADINE SOAKED GAUZE -Primary Dressing Covered/Secured with Secured with Tape #1- L MEDIAL ANKLE -Other Dressing BETADINE SOAKED GAUZE -Primary Dressing Covered/Secured with Secured with Tape Treatment Response Procedure Tolerated Well Pain Scale: 0-10 Numeric Is Patient Pain Free? Yes - Visit Discharge Discharge Condition Stable Ambulatory Status Wheelchair Transportation Private Auto Accompanied by Assessment/Plan Assessment/Plan (1) Cellulitis of left foot: CODE(S): L03.116 - Cellulitis of left lower limb PLAN: Patient was examined and evaluated. All findings were discussed with the patient. All questions were answered to the patient's satisfaction. Excisional debridement down to and including subcutaneous tissue, fascia and muscle to the left medial ankle full-thickness wound with a number 3 mm dermal curette and without incident. Predebridement measurement was 0.7 x 0.9 x 0.2 cm. Postdebridement measurement is 0.8 x 1.0 x 0.3 cm. Excisional debridement down to including subcutaneous tissue to left lower extremity first metatarsal phalangeal joint dorsally with a 3 mm dermal curette done without incident. Predebridement measurement was 0.8 x 1.5 x 0.1 cm. Postdebridement measurement is 0.9 x 1.7 x 0.2 cm 2 wounds right cleaned and patted dry. Betadine paint followed by Betadine soaked gauze was applied to both wounds followed by dry sterile dressing and light compression wrap. Patient will continue daily dressing changes. We are still awaiting vascular follow-up for evaluation and possible treatment. There was concern for cellulitis to the soft tissue and the patient will be placed on doxycycline 100 mg twice daily for 2 weeks. Patient was educated on signs symptoms of worsening infection and to report to the emergency room with any concerns. The patient will follow-up with Dr. 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 (3) Non-pressure chronic ulcer of other part of left foot with fat layer exposed: CODE(S): L97.522 - Non-pressure chronic ulcer of other part of left foot with fat layer exposed (4) Other specified peripheral vascular diseases: CODE(S): I73.89 - Other specified peripheral vascular diseases
--- NOTE | 2024-11-03 10:15 | WC ---
PHOTO- LEFT MED ANKLE 11/02/24
--- NOTE | 2024-11-03 10:17 | WC ---
PHOTO- LEFT FOOT 11/02/24
[2024-11-09 11:36] VITALS: BP 122/69; PULSE 65; RESP 16; TEMP 36.5
--- NOTE | 2024-11-09 12:28 | PN.PCM_ITS ---
History of Present Illness Date of Service: 11/09/24 Chief Complaint: Left medial ankle and left foot ulcers History of Wound: This is an 84-year-old male with a left medial ankle ulcer that had been seeing Motion Picture Projectionist Apprentice, Dr. Drew, at the [facility]. The patient has a significant history for COPD, and is on home O2. He also has a history of Prostate CA, Squamous carcinoma of left lung, HTN, anxiety and depression, AAA without rupture, CAD, coronary artery stent placement (multiple) , CABG x 3, former smoker, PAD, PBH, and pulmonary embolism-on anticoagulants, and hyperlipidemia. He has had arterial studies in the past and had some vascular procedures (by Dr. Freeman) to his left leg. He denies a history of diabetes. His providers are all with [facility]. He has had this left medial ankle ulcer for more than 3 months. He had been placing Santyl covered with Webb SAP. There had not been much improvement to this area, and he was referred to see us by [facility], and that Dr. Drew also suggested he get a second opinion. The patient is seen at this time as a courtesy to his regular Wound Center provider, Dr. Rasta Mazariegos, who is unavailable this week. Progress of Wound: Slow healing full-thickness wounds to the left medial ankle and dorsal first metatarsophalangeal joint. Waiting on vascular consultation Subjective Subjective Patient is a 84-year-old male presenting to the wound care center today for follow-up evaluation of full-thickness wound to the medial ankle and dorsal aspect of the first metatarsophalangeal joint. Patient states that he accidentally cut his skin when changing his bandage but the wound is stable with eschar. He is taking the oral antibiotic doxycycline 100 mg twice daily and has improvement to redness and pain to the left foot. He has been doing daily dressing changes as discussed. Denies constitutional symptoms. No other pedal complaints at this time. Objective Data Objective Data Vital Signs: Vital Signs Temp Pulse Resp BP O2 Del Method 97.7 F L 65 16 122/69 H Room Air 11/09/24 11:36 11/09/24 11:36 11/09/24 11:36 11/09/24 11:36 11/09/24 11:36 Oxygen Delivery Method Room Air Physical Exam Narrative Vascular: DP and PT pulses are faintly palpable. CFT is brisk. Blanchable erythema appreciated to the ankle and first metatarsal phalangeal joint. No sign of proximal streaking. Neurological: Light touch intact. Patient does despond painful stimuli. Dermatological: Full-thickness wound to the left medial ankle measuring 0.7 x 0.8 x 0.3 cm. There is evidence of circumferential undermining to the level of the ankle measuring 0.3 cm. Full-thickness wound to the dorsal aspect left foot first metatarsal phalangeal joint measuring 0.8 x 1.8 x 0.2 cm. Excisional debridement down to and including subcutaneous tissue, fascia and muscle to the left medial ankle full-thickness wound with a number 3 mm dermal curette and without incident. Predebridement measurement was 0.6 x 0.7 x 0.2 cm. Postdebridement measurement is 0.7 x 0.8 x 0.3 cm. Excisional debridement down to including subcutaneous tissue fascia and muscle to left lower extremity first metatarsal phalangeal joint dorsally with a 3 mm dermal curette done without incident. Predebridement measurement was 0.7 x 1.7 x 0.1 cm.. Postdebridement measurement is 0.8 x 1.8 x 0.2 cm. Musculoskeletal: No pain on palpation to the left 1st MPJ full thickness wound. No pain with calf pressure. Debridement Note Debridement Note Debridement Free Text: Excisional debridement down to and including subcutaneous tissue, fascia and muscle to the left medial ankle full-thickness wound with a number 3 mm dermal curette and without incident. Predebridement measurement was 0.6 x 0.7 x 0.2 cm. Postdebridement measurement is 0.7 x 0.8 x 0.3 cm. Excisional debridement down to including subcutaneous tissue fascia and muscle to left lower extremity first metatarsal phalangeal joint dorsally with a 3 mm dermal curette done without incident. Predebridement measurement was 0.7 x 1.7 x 0.1 cm.. Postdebridement measurement is 0.8 x 1.8 x 0.2 cm. Post-Debridement Measurements and Additional Note: Post-Debridement Measurements/Treatment FABIAN - Nurse 1 - General Ulcer Assessment Start: 11/02/24 14:42 Freq: Status: Active Protocol: FABIAN.LOWEXT Activity Type Activity Date Activity User E-sign Co-sign Detail Recorded Client Recorded Date Recorded By Document 11/02/24 14:42 [id number] 11/02/24 14:49 Document 11/09/24 11:36 [id number] 11/09/24 11:39 11/02/24 11/09/24 14:42 11:36 - Today's Visit Information Type of service Follow-up Visit Follow-up Visit (Physician/COFFEE BREAK ATTENDANT (Physician/COFFEE BREAK ATTENDANT ) ) Arrival Mode Wheelchair Wheelchair Transfer Assistance None Accompanied by Patient Identification Verified (Name & Yes Yes ) Vital Signs Temperature (97.8 F-99.1 F) 97.2 F L 97.7 F L Temperature Source Temporal Temporal Pulse Rate (60-100) 73 65 Pulse Location Monitor Monitor Respiratory Rate (12-18) 16 16 Respiratory rate source Observation Observation Oxygen Delivery Method Nasal Cannula Room Air Blood Pressure (90/60-120/80) 95/43 L 122/69 H Blood Pressure Mean (mm Hg) 60 86 Source Monitor Monitor Position Sitting Sitting Blood Pressure Location Left Arm Right Arm History Since Last Visit- (Skip if this is Patient's initial visit) Have you changed medications since your No No last visit? Any new allergies or adverse reactions No No Had a fall/change in ADL's that may No No increase risk of falls Signs or symptoms of abuse and/or No No neglect since last visit Have you been in the hospital since your No No last visit? Has dressing in place as prescribed Yes Yes Has compression in place as prescribed Yes Yes Has offloadiing in place as prescribed Yes N/A Experienced any changes in pain level or No No management Left Footwear Regular Shoe Right Footwear Regular Shoe Pain Scale: 0-10 Numeric Is Patient Pain Free? Yes Yes - Nurse 1 - General Ulcer Measurement Start: 11/02/24 14:42 Freq: Status: Active Protocol: Activity Type Activity Date Activity User E-sign Co-sign Detail Recorded Client Recorded Date Recorded By Document 11/02/24 14:42 [id number] 11/02/24 14:49 Document 11/09/24 11:36 [id number] 11/09/24 11:39 11/02/24 11/09/24 14:42 11:36 Wound Center Nurse 1 3-left foot -Current Size (cm) - Length 0.8 0.8 -Current Size (cm) - Width 1.9 2.0 -Current Size (cm) - Depth 0.3 0.2 -Total Square Cm 1.52 1.60 -Date of Last Picture (Recall this 11/09/24 field) -Photo Taken Yes Yes -Epithelialization Small 1-33% -Tunneling No -Undermining/Tunneling No -Circular Undermining No -Exudate Amt Medium Small -Exudate Type Serosanguineous Yellow/Green -Wound Margin Distinct, Distinct, Outline Outline Attached Attached -Granulation Amt None Present (0 Small (1-33%) %) -Slough/Fibrin Yes -Necrosis Amt Large (67-100%) Medium (34-66%) -Necrotic Tissue Type Adherent Slough -Structure Exposed N/A -Texture (Bell-wound Skin Appearance) Scarring Assessed -Moisture (Bell-wound Skin Appearance) Maceration Assessed -Color (Bell-wound Skin Appearance) Erythema Assessed -Temperature (Bell-wound Skin No Abnormality No Abnormality Appearance) (Pt Warm) (Pt Warm) -Tenderness on Palpation (Bell-wound No No Skin Appearance) -Ulcer Cleansing Rinsed/ Rinsed/ Irrigated with Irrigated with Saline Saline -Foul Odor after Cleansing No No -Anesthetic Used 5% Lidocaine 5% Lidocaine Gel Gel #1- L MEDIAL ANKLE -Current Size (cm) - Length 0.8 0.7 -Current Size (cm) - Width 0.8 0.6 -Current Size (cm) - Depth 0.3 0.3 -Total Square Cm 0.64 0.42 -Date of Last Picture (Recall this 11/09/24 field) -Photo Taken Yes Yes -Epithelialization Small 1-33% -Tunneling No -Undermining/Tunneling No -Maximum Distance #2 (cm) 0.2 -Circular Undermining Yes No -Exudate Amt Medium None Present -Exudate Type Serosanguineous Yellow/Green -Wound Margin Distinct, Distinct, Outline Outline Attached Attached -Granulation Amt None Present (0 Small (1-33%) %) -Slough/Fibrin Yes -Necrosis Amt Small (1-33%) Medium (34-66%) -Necrotic Tissue Type Adherent Slough -Structure Exposed N/A -Texture (Bell-wound Skin Appearance) Scarring Assessed -Moisture (Bell-wound Skin Appearance) Maceration Assessed -Color (Bell-wound Skin Appearance) Erythema Assessed -Temperature (Bell-wound Skin No Abnormality No Abnormality Appearance) (Pt Warm) (Pt Warm) -Tenderness on Palpation (Bell-wound No Skin Appearance) -Ulcer Cleansing Soap and Water Rinsed/ Irrigated with Saline -Foul Odor after Cleansing No No -Anesthetic Used 5% Lidocaine 5% Lidocaine Gel Gel Lower Limb Edema Present No Left Calf (cm) 27.5 Point of measurement (cm from the medial 28.2 instep) Left Ankle (cm) 19.7 Point of Measurement (cm from the medial 20.5 instep) WC - Nurse 2 - General Ulcer CM Notes Start: 11/02/24 14:42 Freq: Status: Active Protocol: Activity Type Activity Date Activity User E-sign Co-sign Detail Recorded Client Recorded Date Recorded By Document 11/02/24 15:07 [id number] 11/02/24 15:11 Document 11/09/24 11:53 [id number] 11/09/24 11:56 11/02/24 11/09/24 15:07 11:53 Wound Center Nurse 2 3-left foot -Time 15:08 11:53 -Correct Patient Yes Yes -Correct Side, Site, Position Yes Yes -Correct Procedure Yes Yes -Procedure Performed Yes Yes -Type of Procedure Debridement Debridement -Clinical Debridement Muscle / Fascia Muscle / Fascia -Tissue Removed Muscle Tendon -Post Debridement (cm) - Length 0.9 0.8 -Post Debridement (cm) - Width 1.7 1.8 -Post Debridement (cm) - Depth 0.2 0.2 -Total Square (Post) (cm) 1.53 1.44 -Area of Debridement (cm) - Length 0.9 0.8 -Area of Debridement (cm) - Width 1.7 1.8 -Total Square (Area) (cm) 1.53 1.44 -Tunneling No No -Undermining/Tunneling No No -Circular Undermining No No -Wound/Ulcer Outcome Not Healed Not Healed -Ulcer Cleansing Rinsed/ Rinsed/ Irrigated with Irrigated with Saline Saline -Foul Odor after Cleansing No No -Bioengineered Tissue No No -Bleeding Controlled with Pressure Pressure -Treatment Response Procedure Procedure Tolerated Well Tolerated Well -Offloading No No -Debridement - Muscle / Fascia, 1st No Yes 20sq cm #1- L MEDIAL ANKLE -Time 15:09 11:54 -Correct Patient Yes Yes -Correct Side, Site, Position Yes Yes -Correct Procedure Yes Yes -Procedure Performed Yes Yes -Type of Procedure Debridement Debridement -Clinical Debridement Muscle / Fascia Muscle / Fascia -Tissue Removed Muscle Muscle -Post Debridement (cm) - Length 0.8 0.7 -Post Debridement (cm) - Width 1.0 0.8 -Post Debridement (cm) - Depth 0.3 0.3 -Total Square (Post) (cm) 0.80 0.56 -Area of Debridement (cm) - Length 0.8 0.7 -Area of Debridement (cm) - Width 1.0 0.8 -Total Square (Area) (cm) 0.80 0.56 -Tunneling No No -Undermining/Tunneling No No -Circular Undermining No Yes -Wound/Ulcer Outcome Not Healed Not Healed -Ulcer Cleansing Rinsed/ Rinsed/ Irrigated with Irrigated with Saline Saline -Foul Odor after Cleansing No No -Bioengineered Tissue No No -Bleeding Controlled with Pressure Pressure -Treatment Response Procedure Procedure Tolerated Well Tolerated Well -Offloading No No -Debridement - Muscle / Fascia, 1st Yes No 20sq cm Pain Scale: 0-10 Numeric Is Patient Pain Free? Yes Yes WC - Nurse 3 - General Ulcer D/C NN Start: 11/02/24 14:42 Freq: Status: Active Protocol: Activity Type Activity Date Activity User E-sign Co-sign Detail Recorded Client Recorded Date Recorded By Document 11/02/24 15:21 [facility] [id number] 11/02/24 15:22 [facility] Document 11/09/24 12:10 [id number] 11/09/24 12:11 11/02/24 11/09/24 15:21 12:10 Wound Care Center Nurse 3 3-left foot -Ulcer Cleansing Not Cleansed -Foul Odor after Cleansing No -Primary Dressing Applied Hysept -Other Dressing BETADINE SOAKED GAUZE -Primary Dressing Covered/Secured with Secured with Dry Gauze,Dry Tape Gauze & Roll Gauze,Secured with Tape -Hysept 1 #1- L MEDIAL ANKLE -Ulcer Cleansing Not Cleansed -Foul Odor after Cleansing No -Negative Pressure Wound Therapy N/A -Other Dressing BETADINE SOAKED GAUZE -Primary Dressing Covered/Secured with Secured with Dry Gauze Tape -Other Covering DAKINS LLE -Lotion applied to leg before No compression wrap -Tubular Bandage Single Layer -Size of Tubigrip Used Size E -Size E ($) 1 Treatment Response Procedure Tolerated Well Pain Scale: 0-10 Numeric Is Patient Pain Free? Yes Yes WC - Visit Discharge Discharge Condition Stable Stable Ambulatory Status Wheelchair Ambulatory Transportation Private Auto Private Auto Accompanied by Assessment/Plan Assessment/Plan (1) Non-pressure chronic ulcer of other part of left foot with necrosis of muscle: CODE(S): L97.523 - Non-pressure chronic ulcer of other part of left foot with necrosis of muscle PLAN: Patient was examined and evaluated. All findings were discussed with the patient. All questions were answered to the patient's satisfaction. Excisional debridement down to and including subcutaneous tissue, fascia and muscle to the left medial ankle full-thickness wound with a number 3 mm dermal curette and without incident. Predebridement measurement was 0.6 x 0.7 x 0.2 cm. Postdebridement measurement is 0.7 x 0.8 x 0.3 cm. Excisional debridement down to including subcutaneous tissue fascia and muscle to left lower extremity first metatarsal phalangeal joint dorsally with a 3 mm dermal curette done without incident. Predebridement measurement was 0.7 x 1.7 x 0.1 cm.. Postdebridement measurement is 0.8 x 1.8 x 0.2 cm. 2 wounds right cleaned and patted dry. Dakins soaked gauze was applied to both wounds followed by dry sterile dressing and light compression wrap. Patient will continue daily dressing changes. We are still awaiting vascular follow-up for evaluation and possible treatment. The patient will follow-up with Dr. 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 (3) Other specified peripheral vascular diseases: CODE(S): I73.89 - Other specified peripheral vascular diseases
--- NOTE | 2024-11-10 08:19 | WC ---
PHOTO-LEFT MED FOOT
--- NOTE | 2024-11-10 08:20 | WC ---
PHOTO-LEFT ANKLE 11/09/24
[2024-11-16 14:36] VITALS: BP 119/47; PULSE 71; RESP 18; TEMP 36.2
--- NOTE | 2024-11-16 15:04 | PCM.WC.PN ---
History of Present Illness Date of Service: 11/16/24 Chief Complaint: Left medial ankle and left foot ulcers History of Wound: This is an 84-year-old male with a left medial ankle ulcer that had been seeing Smelter Liner, Dr. Drew, at the [facility]. The patient has a significant history for COPD, and is on home O2. He also has a history of Prostate CA, Squamous carcinoma of left lung, HTN, anxiety and depression, AAA without rupture, CAD, coronary artery stent placement (multiple), CABG x 3, former smoker, PAD, PBH, and pulmonary embolism-on anticoagulants, and hyperlipidemia. He has had arterial studies in the past and had some vascular procedures (by Dr. Freeman) to his left leg. He denies a history of diabetes. His providers are all with [facility]. He has had this left medial ankle ulcer for more than 3 months. He had been placing Santyl covered with [place] SAP. There had not been much improvement to this area, and he was referred to see us by [facility], and that Dr. Drew also suggested he get a second opinion. The patient is seen at this time as a courtesy to his regular Wound Center provider, Dr. Rasta Mazariegos, who is unavailable this week. Progress of Wound: Slow healing full-thickness wounds to the left medial ankle and dorsal first metatarsophalangeal joint. Waiting on vascular consultation Subjective Subjective Patient is 84-year-old male presenting to clinic today follow-up evaluation of full-thickness wound to the medial left ankle and dorsal first metatarsophalangeal joint of the left foot. Patient has been doing dressing changes with Dakin solution as discussed. They have noticed improvement to the wounds but they are still present. He has finished all antibiotics as prescribed. He admits that the redness and pain has improved. He denies trauma. Denies constitutional symptoms. No other pedal complaints at this time. Objective Data Objective Data Vital Signs: Vital Signs Temp Pulse Resp BP O2 Del Method 97.1 F L 71 18 119/47 L Nasal Cannula 11/16/24 14:36 11/16/24 14:36 11/16/24 14:36 11/16/24 14:36 11/16/24 14:36 Oxygen Delivery Method Nasal Cannula Physical Exam Narrative Vascular: DP and PT pulses are faintly palpable. CFT is brisk. Blanchable erythema appreciated to the ankle and first metatarsal phalangeal joint. No sign of proximal streaking. Neurological: Light touch intact. Patient does despond painful stimuli. Dermatological: Full-thickness wound to the left medial ankle measuring 0.9 x 0.9 x 0.3 cm there is evidence of circumferential undermining has improved. Full-thickness wound to the dorsal aspect left foot first metatarsal phalangeal joint measuring 0.9 x 1.8 x 0.2 cm. Excisional debridement down to and including subcutaneous tissue, fascia and muscle to the left medial ankle full-thickness wound with a number 3 mm dermal curette and without incident. Predebridement measurement was 0.8 x 0.8 x 0.2 cm. Postdebridement measurement is 0.9 x 0.9 x 0.3 cm. Excisional debridement down to including subcutaneous tissue to left lower extremity first metatarsal phalangeal joint dorsally with a 3 mm dermal curette done without incident. Predebridement measurement was 0.8 x 1.7 x 0.1 cm. Postdebridement measurement is 0.9 x 1.8 x 0.2 cm. Musculoskeletal: No pain on palpation to the left ankle and 1st MPJ full thickness wounds. No pain with calf pressure. Debridement Note Debridement Note Debridement Free Text: Excisional debridement down to and including subcutaneous tissue, fascia and muscle to the left medial ankle full-thickness wound with a number 3 mm dermal curette and without incident. Predebridement measurement was 0.8 x 0.8 x 0.2 cm. Postdebridement measurement is 0.9 x 0.9 x 0.3 cm. Excisional debridement down to including subcutaneous tissue to left lower extremity first metatarsal phalangeal joint dorsally with a 3 mm dermal curette done without incident. Predebridement measurement was 0.8 x 1.7 x 0.1 cm. Postdebridement measurement is 0.9 x 1.8 x 0.2 cm. Post-Debridement Measurements and Additional Note: Post-Debridement Measurements/Treatment WC - Nurse 1 - General Ulcer Assessment Start: 11/02/24 14:42 Freq: Status: Active Protocol: FABIAN.LOWEXT Activity Type Activity Date Activity User E-sign Co-sign Detail Recorded Client Recorded Date Recorded By Document 11/02/24 14:42 [id number] 11/02/24 14:49 Document 11/09/24 11:36 [id number] 11/09/24 11:39 Document 11/16/24 14:36 [id number] 11/16/24 14:41 11/02/24 11/09/24 11/16/24 14:42 11:36 14:36 - Today's Visit Information Type of service Follow-up Visit Follow-up Visit Follow-up Visit (Physician/SURGICAL INSTRUMENT REPAIR SPECIALIST (Physician/SURGICAL INSTRUMENT REPAIR SPECIALIST (Physician/SURGICAL INSTRUMENT REPAIR SPECIALIST ) ) ) Arrival Mode Wheelchair Wheelchair Wheelchair Transfer Assistance None Accompanied by Patient Identification Verified (Name & Yes Yes Yes ) Vital Signs Temperature (97.8 F-99.1 F) 97.2 F L 97.7 F L 97.1 F L Temperature Source Temporal Temporal Temporal Pulse Rate (60-100) 73 65 71 Pulse Location Monitor Monitor Monitor Respiratory Rate (12-18) 16 16 18 Respiratory rate source Observation Observation Observation Oxygen Delivery Method Nasal Cannula Room Air Nasal Cannula Blood Pressure (90/60-120/80) 95/43 L 122/69 H 119/47 L Blood Pressure Mean (mm Hg) 60 86 71 Source Monitor Monitor Monitor Position Sitting Sitting Semi-Fowlers Blood Pressure Location Left Arm Right Arm Right Arm History Since Last Visit- (Skip if this is Patient's initial visit) Have you changed medications since your No No No last visit? Any new allergies or adverse reactions No No No Had a fall/change in ADL's that may No No No increase risk of falls Signs or symptoms of abuse and/or No No No neglect since last visit Have you been in the hospital since your No No No last visit? Has dressing in place as prescribed Yes Yes Yes Has compression in place as prescribed Yes Yes Yes Has offloadiing in place as prescribed Yes N/A N/A Experienced any changes in pain level or No No No management Left Footwear Regular Shoe Regular Shoe Right Footwear Regular Shoe Regular Shoe Pain Scale: 0-10 Numeric Is Patient Pain Free? Yes Yes Yes - Nurse 1 - General Ulcer Measurement Start: 11/02/24 14:42 Freq: Status: Active Protocol: Activity Type Activity Date Activity User E-sign Co-sign Detail Recorded Client Recorded Date Recorded By Document 11/02/24 14:42 [id number] 11/02/24 14:49 Document 11/09/24 11:36 [id number] 11/09/24 11:39 Document 11/16/24 14:36 [id number] 11/16/24 14:41 11/02/24 11/09/24 11/16/24 14:42 11:36 14:36 Wound Center Nurse 1 3-left foot -Current Size (cm) - Length 0.8 0.8 1 -Current Size (cm) - Width 1.9 2.0 2 -Current Size (cm) - Depth 0.3 0.2 0.2 -Total Square Cm 1.52 1.60 2 -Date of Last Picture (Recall this 11/09/24 field) -Photo Taken Yes Yes -Epithelialization Small 1-33% -Tunneling No -Undermining/Tunneling No -Circular Undermining No -Exudate Amt Medium Small Medium -Exudate Type Serosanguineous Yellow/Green Serosanguineous -Wound Margin Distinct, Distinct, Thickened & Outline Outline Rolled Under Attached Attached -Granulation Amt None Present (0 Small (1-33%) Medium (34-66%) %) -Granulation Quality Geraldine -Slough/Fibrin Yes -Necrosis Amt Large (67-100%) Medium (34-66%) Medium (34-66%) -Necrotic Tissue Type Adherent Slough Adherent Slough -Structure Exposed N/A -Texture (Bell-wound Skin Appearance) Scarring Assessed Assessed, Localized Edema -Moisture (Bell-wound Skin Appearance) Maceration Assessed Assessed -Color (Bell-wound Skin Appearance) Erythema Assessed Assessed, Erythema -Temperature (Bell-wound Skin No Abnormality No Abnormality No Abnormality Appearance) (Pt Warm) (Pt Warm) (Pt Warm) -Tenderness on Palpation (Bell-wound No No No Skin Appearance) -Ulcer Cleansing Rinsed/ Rinsed/ Soap and Water Irrigated with Irrigated with Saline Saline -Foul Odor after Cleansing No No No -Anesthetic Used 5% Lidocaine 5% Lidocaine 5% Lidocaine Gel Gel Gel #1- L MEDIAL ANKLE -Current Size (cm) - Length 0.8 0.7 1 -Current Size (cm) - Width 0.8 0.6 0.7 -Current Size (cm) - Depth 0.3 0.3 0.4 -Total Square Cm 0.64 0.42 0.7 -Date of Last Picture (Recall this 11/09/24 11/16/24 field) -Photo Taken Yes Yes -Epithelialization Small 1-33% -Tunneling No -Undermining/Tunneling No -Maximum Distance #2 (cm) 0.2 -Circular Undermining Yes No -Exudate Amt Medium None Present Medium -Exudate Type Serosanguineous Yellow/Green Serosanguineous -Wound Margin Distinct, Distinct, Thickened & Outline Outline Rolled Under Attached Attached -Granulation Amt None Present (0 Small (1-33%) Small (1-33%) %) -Granulation Quality Geraldine -Slough/Fibrin Yes -Necrosis Amt Small (1-33%) Medium (34-66%) Large (67-100%) -Necrotic Tissue Type Adherent Slough Adherent Slough -Structure Exposed N/A -Texture (Bell-wound Skin Appearance) Scarring Assessed Assessed, Localized Edema -Moisture (Bell-wound Skin Appearance) Maceration Assessed Assessed -Color (Bell-wound Skin Appearance) Erythema Assessed Assessed, Erythema -Temperature (Bell-wound Skin No Abnormality No Abnormality No Abnormality Appearance) (Pt Warm) (Pt Warm) (Pt Warm) -Tenderness on Palpation (Bell-wound No No Skin Appearance) -Ulcer Cleansing Soap and Water Rinsed/ Soap and Water Irrigated with Saline -Foul Odor after Cleansing No No No -Anesthetic Used 5% Lidocaine 5% Lidocaine 5% Lidocaine Gel Gel Gel Lower Limb Edema Present No Left Calf (cm) 27.5 Point of measurement (cm from the medial 28.2 instep) Left Ankle (cm) 19.7 Point of Measurement (cm from the medial 20.5 instep) WC - Nurse 2 - General Ulcer CM Notes Start: 11/02/24 14:42 Freq: Status: Active Protocol: Activity Type Activity Date Activity User E-sign Co-sign Detail Recorded Client Recorded Date Recorded By Document 11/02/24 15:07 [id number] 11/02/24 15:11 Document 11/09/24 11:53 [id number] 11/09/24 11:56 Document 11/16/24 14:45 [id number] 11/16/24 14:49 11/02/24 11/09/24 11/16/24 15:07 11:53 14:45 Wound Center Nurse 2 3-left foot -Time 15:08 11:53 14:46 -Correct Patient Yes Yes Yes -Correct Side, Site, Position Yes Yes Yes -Correct Procedure Yes Yes Yes -Procedure Performed Yes Yes Yes -Type of Procedure Debridement Debridement Debridement -Clinical Debridement Muscle / Fascia Muscle / Fascia Subcutaneous -Tissue Removed Muscle Tendon Subcutaneous -Post Debridement (cm) - Length 0.9 0.8 0.9 -Post Debridement (cm) - Width 1.7 1.8 1.8 -Post Debridement (cm) - Depth 0.2 0.2 0.2 -Total Square (Post) (cm) 1.53 1.44 1.62 -Area of Debridement (cm) - Length 0.9 0.8 0.9 -Area of Debridement (cm) - Width 1.7 1.8 1.8 -Total Square (Area) (cm) 1.53 1.44 1.62 -Tunneling No No No -Undermining/Tunneling No No No -Circular Undermining No No No -Wound/Ulcer Outcome Not Healed Not Healed Not Healed -Ulcer Cleansing Rinsed/ Rinsed/ Rinsed/ Irrigated with Irrigated with Irrigated with Saline Saline Saline -Foul Odor after Cleansing No No No -Bioengineered Tissue No No No -Bleeding Controlled with Pressure Pressure Pressure -Treatment Response Procedure Procedure Procedure Tolerated Well Tolerated Well Tolerated Well -Offloading No No No -Debridement - Subq, 1st 20sq cm Yes -Debridement - Muscle / Fascia, 1st No Yes 20sq cm #1- L MEDIAL ANKLE -Time 15:09 11:54 14:47 -Correct Patient Yes Yes Yes -Correct Side, Site, Position Yes Yes Yes -Correct Procedure Yes Yes Yes -Procedure Performed Yes Yes Yes -Type of Procedure Debridement Debridement Debridement -Clinical Debridement Muscle / Fascia Muscle / Fascia Muscle / Fascia -Tissue Removed Muscle Muscle Muscle -Post Debridement (cm) - Length 0.8 0.7 0.9 -Post Debridement (cm) - Width 1.0 0.8 0.9 -Post Debridement (cm) - Depth 0.3 0.3 0.3 -Total Square (Post) (cm) 0.80 0.56 0.81 -Area of Debridement (cm) - Length 0.8 0.7 0.9 -Area of Debridement (cm) - Width 1.0 0.8 0.9 -Total Square (Area) (cm) 0.80 0.56 0.81 -Tunneling No No No -Undermining/Tunneling No No No -Circular Undermining No Yes No -Wound/Ulcer Outcome Not Healed Not Healed Not Healed -Ulcer Cleansing Rinsed/ Rinsed/ Rinsed/ Irrigated with Irrigated with Irrigated with Saline Saline Saline -Foul Odor after Cleansing No No No -Bioengineered Tissue No No No -Bleeding Controlled with Pressure Pressure Pressure -Treatment Response Procedure Procedure Procedure Tolerated Well Tolerated Well Tolerated Well -Offloading No No No -Debridement - Muscle / Fascia, 1st Yes No Yes 20sq cm Pain Scale: 0-10 Numeric Is Patient Pain Free? Yes Yes Yes - Nurse 3 - General Ulcer D/C NN Start: 11/02/24 14:42 Freq: Status: Active Protocol: Activity Type Activity Date Activity User E-sign Co-sign Detail Recorded Client Recorded Date Recorded By Document 11/02/24 15:21 [facility] [id number] 11/02/24 15:22 [facility] Document 11/09/24 12:10 [id number] 11/09/24 12:11 Document 11/16/24 14:58 [id number] 11/16/24 14:58 11/02/24 11/09/24 11/16/24 15:21 12:10 14:58 Wound Care Center Nurse 3 3-left foot -Ulcer Cleansing Not Cleansed -Foul Odor after Cleansing No -Primary Dressing Applied Hysept -Other Dressing BETADINE SOAKED dakins gauze GAUZE -Primary Dressing Covered/Secured with Secured with Dry Gauze,Dry Dry Gauze & Tape Gauze & Roll Roll Gauze, Gauze,Secured Secured with with Tape Tape -Hysept 1 #1- L MEDIAL ANKLE -Ulcer Cleansing Not Cleansed -Foul Odor after Cleansing No -Negative Pressure Wound Therapy N/A -Other Dressing BETADINE SOAKED dakins gauze GAUZE -Primary Dressing Covered/Secured with Secured with Dry Gauze Dry Gauze Tape -Other Covering DAKINS LLE -Lotion applied to leg before No compression wrap -Tubular Bandage Single Layer Single Layer -Size of Tubigrip Used Size E Size E -Size E ($) 1 1 Treatment Response Procedure Tolerated Well Pain Scale: 0-10 Numeric Is Patient Pain Free? Yes Yes Yes - Visit Discharge Discharge Condition Stable Stable Stable Ambulatory Status Wheelchair Ambulatory Wheelchair Transportation Private Auto Private Auto Private Auto Accompanied by Medication Reconcilliation completed & No provided to patient/care provider Clinical Summary of Care Provided Yes Assessment/Plan Assessment/Plan (1) Non-pressure chronic ulcer of other part of left foot with necrosis of muscle: CODE(S): L97.523 - Non-pressure chronic ulcer of other part of left foot with necrosis of muscle PLAN: Patient was examined and evaluated. All findings were discussed with the patient. All questions were answered to the patient's satisfaction. Excisional debridement down to and including subcutaneous tissue, fascia and muscle to the left medial ankle full-thickness wound with a number 3 mm dermal curette and without incident. Predebridement measurement was 0.8 x 0.8 x 0.2 cm. Postdebridement measurement is 0.9 x 0.9 x 0.3 cm. Excisional debridement down to including subcutaneous tissue to left lower extremity first metatarsal phalangeal joint dorsally with a 3 mm dermal curette done without incident. Predebridement measurement was 0.8 x 1.7 x 0.1 cm. Postdebridement measurement is 0.9 x 1.8 x 0.2 cm. 2 wounds right cleaned and patted dry. Dakins soaked gauze was applied to both wounds followed by dry sterile dressing and light compression wrap. Patient will continue daily dressing changes. Patient will be following up with vascular surgery for evaluation and consultation tomorrow. The patient will follow-up with Dr. 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 (3) Other specified peripheral vascular diseases: CODE(S): I73.89 - Other specified peripheral vascular diseases
[2024-11-23 14:38] VITALS: BP 126/97; PULSE 78; RESP 24; TEMP 36.3
--- NOTE | 2024-11-23 15:09 | PN.PCM_ITS ---
History of Present Illness Date of Service: 11/23/24 Chief Complaint: Left medial ankle and left foot ulcers History of Wound: This is an 84-year-old male with a left medial ankle ulcer that had been seeing Tankman, Dr. Drew, at the [facility]. The patient has a significant history for COPD, and is on home O2. He also has a history of Prostate CA, Squamous carcinoma of left lung, HTN, anxiety and depression, AAA without rupture, CAD, coronary artery stent placement (multiple) , CABG x 3, former smoker, PAD, PBH, and pulmonary embolism-on anticoagulants, and hyperlipidemia. He has had arterial studies in the past and had some vascular procedures (by Dr. Freeman) to his left leg. He denies a history of diabetes. His providers are all with [facility]. He has had this left medial ankle ulcer for more than 3 months. He had been placing Santyl covered with [place] [facility]. There had not been much improvement to this area, and he was referred to see us by [facility], and that Dr. Drew also suggested he get a second opinion. The patient is seen at this time as a courtesy to his regular Wound Center provider, Dr. Rasta Mazariegos, who is unavailable this week. Progress of Wound: Slow healing full-thickness wounds to the left medial ankle and dorsal first metatarsophalangeal joint. Saw vascular plan for CTA tomorrow Subjective Subjective Patient is 84-year-old male with history of peripheral vascular disease presenting to clinic today for follow-up evaluation of full-thickness wounds to the left medial ankle and dorsal first metatarsal phalangeal joint left lower extremity. Patient did follow-up with vascular and is planning to have a CTA tomorrow for evaluation of his left lower extremity. Patient has been compliant with dressing changes as discussed. He denies any new onset of wounds. He denies trauma. Denies constitutional symptoms. No other pedal complaints at this time. Objective Data Objective Data Vital Signs: Vital Signs Temp Pulse Resp BP O2 Del Method O2 Flow Rate 97.3 F L 78 24 H 126/97 H Nasal Cannula 4 11/23/24 14:38 11/23/24 14:38 11/23/24 14:38 11/23/24 14:38 11/23/24 14:38 11/23/24 14:38 Oxygen Flow Rate (L/min) 4 Oxygen Delivery Method Nasal Cannula Physical Exam Narrative Vascular: DP and PT pulses are faintly palpable. CFT is brisk. Blanchable erythema appreciated to the ankle and first metatarsal phalangeal joint. No sign of proximal streaking. Neurological: Light touch intact. Patient does despond painful stimuli. Dermatological: Full-thickness wound to left medial ankle measuring 0.8 x 1.0 x 0.3 cm. Wound base is granular nature. No circumferential undermining noted at this time. Evidence of full-thickness wound to the dorsal aspect of first metatarsophalangeal joint to left lower extremity. Full-thickness wound measures 0.8 x 1.5 x 0.2 cm. Evidence of exposed fascia and subcutaneous tissue. Wound is stable with no sign of infection. Excisional debridement down to and including subcutaneous tissue, fascia and muscle to the left medial ankle full-thickness wound with a number 3 mm dermal curette and without incident. Predebridement measurement was 0.7 x 0.9 x 0.2 cm. Postdebridement measurement is 0.8 x 1.0 x 0.3 cm. Excisional debridement down to including subcutaneous tissue, fascia and muscle to left lower extremity first metatarsal phalangeal joint dorsally with a 3 mm dermal curette done without incident. Predebridement measurement was 0.7 x 0.4 x 0.1 cm. Postdebridement measurement is 0.8 x 1.5 x 0.2 cm Musculoskeletal: No pain on palpation to the left ankle and 1st MPJ full thickness wounds. No pain with calf pressure. Debridement Note Debridement Note Debridement Free Text: Excisional debridement down to and including subcutaneous tissue, fascia and muscle to the left medial ankle full-thickness wound with a number 3 mm dermal curette and without incident. Predebridement measurement was 0.7 x 0.9 x 0.2 cm. Postdebridement measurement is 0.8 x 1.0 x 0.3 cm. Excisional debridement down to including subcutaneous tissue, fascia and muscle to left lower extremity first metatarsal phalangeal joint dorsally with a 3 mm dermal curette done without incident. Predebridement measurement was 0.7 x 0.4 x 0.1 cm. Postdebridement measurement is 0.8 x 1.5 x 0.2 cm Post-Debridement Measurements and Additional Note: Post-Debridement Measurements/Treatment - Nurse 1 - General Ulcer Assessment Start: 11/02/24 14:42 Freq: Status: Active Protocol: MILENA Activity Type Activity Date Activity User E-sign Co-sign Detail Recorded Client Recorded Date Recorded By Document 11/02/24 14:42 [id number] 11/02/24 14:49 Document 11/09/24 11:36 [id number] 11/09/24 11:39 Document 11/16/24 14:36 [id number] 11/16/24 14:41 Document 11/23/24 14:38 [id number] 11/23/24 14:47 11/02/24 11/09/24 11/16/24 14:42 11:36 14:36 - Today's Visit Information Type of service Follow-up Visit Follow-up Visit Follow-up Visit (Physician/PHOTO STYLIST (Physician/PHOTO STYLIST (Physician/PHOTO STYLIST ) ) ) Arrival Mode Wheelchair Wheelchair Wheelchair Transfer Assistance None Accompanied by Patient Identification Verified (Name & Yes Yes Yes ) Vital Signs Temperature (97.8 F-99.1 F) 97.2 F L 97.7 F L 97.1 F L Temperature Source Temporal Temporal Temporal Pulse Rate (60-100) 73 65 71 Pulse Location Monitor Monitor Monitor Respiratory Rate (12-18) 16 16 18 Respiratory rate source Observation Observation Observation Oxygen Delivery Method Nasal Cannula Room Air Nasal Cannula O2 L/MIN (L/min) Blood Pressure (90/60-120/80) 95/43 L 122/69 H 119/47 L Blood Pressure Mean (mm Hg) 60 86 71 Source Monitor Monitor Monitor Position Sitting Sitting Semi-Fowlers Blood Pressure Location Left Arm Right Arm Right Arm History Since Last Visit- (Skip if this is Patient's initial visit) Have you changed medications since your No No No last visit? Any new allergies or adverse reactions No No No Had a fall/change in ADL's that may No No No increase risk of falls Signs or symptoms of abuse and/or No No No neglect since last visit Have you been in the hospital since your No No No last visit? Has dressing in place as prescribed Yes Yes Yes Has compression in place as prescribed Yes Yes Yes Has offloadiing in place as prescribed Yes N/A N/A Experienced any changes in pain level or No No No management Left Footwear Regular Shoe Regular Shoe Right Footwear Regular Shoe Regular Shoe Pain Scale: 0-10 Numeric Is Patient Pain Free? Yes Yes Yes 11/23/24 14:38 - Today's Visit Information Type of service Follow-up Visit (Physician/PHOTO STYLIST ) Arrival Mode Wheelchair Transfer Assistance None Accompanied by Patient Identification Verified (Name & Yes ) Vital Signs Temperature (97.8 F-99.1 F) 97.3 F L Temperature Source Temporal Pulse Rate (60-100) 78 Pulse Location Monitor Respiratory Rate (12-18) 24 H Respiratory rate source Observation Oxygen Delivery Method Nasal Cannula O2 L/MIN (L/min) 4 Blood Pressure (90/60-120/80) 126/97 H Blood Pressure Mean (mm Hg) 106 Source Monitor Position Sitting Blood Pressure Location Left Arm History Since Last Visit- (Skip if this is Patient's initial visit) Have you changed medications since your No last visit? Any new allergies or adverse reactions No Had a fall/change in ADL's that may No increase risk of falls Signs or symptoms of abuse and/or No neglect since last visit Have you been in the hospital since your No last visit? Has dressing in place as prescribed Yes Has compression in place as prescribed Yes Has offloadiing in place as prescribed Yes Experienced any changes in pain level or No management Left Footwear Right Footwear Pain Scale: 0-10 Numeric Is Patient Pain Free? Yes - Nurse 1 - General Ulcer Measurement Start: 11/02/24 14:42 Freq: Status: Active Protocol: Activity Type Activity Date Activity User E-sign Co-sign Detail Recorded Client Recorded Date Recorded By Document 11/02/24 14:42 [id number] 11/02/24 14:49 Document 11/09/24 11:36 [id number] 11/09/24 11:39 Document 11/16/24 14:36 [id number] 11/16/24 14:41 Document 11/23/24 14:38 [id number] 11/23/24 14:47 11/02/24 11/09/24 11/16/24 14:42 11:36 14:36 Wound Center Nurse 1 3-left foot -Current Size (cm) - Length 0.8 0.8 1 -Current Size (cm) - Width 1.9 2.0 2 -Current Size (cm) - Depth 0.3 0.2 0.2 -Total Square Cm 1.52 1.60 2 -Date of Last Picture (Recall this 11/09/24 field) -Photo Taken Yes Yes -Epithelialization Small 1-33% -Tunneling No -Undermining/Tunneling No -Circular Undermining No -Exudate Amt Medium Small Medium -Exudate Type Serosanguineous Yellow/Green Serosanguineous -Wound Margin Distinct, Distinct, Thickened & Outline Outline Rolled Under Attached Attached -Granulation Amt None Present (0 Small (1-33%) Medium (34-66%) %) -Granulation Quality Deputy -Slough/Fibrin Yes -Necrosis Amt Large (67-100%) Medium (34-66%) Medium (34-66%) -Necrotic Tissue Type Adherent Slough Adherent Slough -Structure Exposed N/A -Texture (Bell-wound Skin Appearance) Scarring Assessed Assessed, Localized Edema -Moisture (Bell-wound Skin Appearance) Maceration Assessed Assessed -Color (Bell-wound Skin Appearance) Erythema Assessed Assessed, Erythema -Temperature (Bell-wound Skin No Abnormality No Abnormality No Abnormality Appearance) (Pt Warm) (Pt Warm) (Pt Warm) -Tenderness on Palpation (Bell-wound No No No Skin Appearance) -Ulcer Cleansing Rinsed/ Rinsed/ Soap and Water Irrigated with Irrigated with Saline Saline -Foul Odor after Cleansing No No No -Anesthetic Used 5% Lidocaine 5% Lidocaine 5% Lidocaine Gel Gel Gel #1- L MEDIAL ANKLE -Current Size (cm) - Length 0.8 0.7 1 -Current Size (cm) - Width 0.8 0.6 0.7 -Current Size (cm) - Depth 0.3 0.3 0.4 -Total Square Cm 0.64 0.42 0.7 -Date of Last Picture (Recall this 11/09/24 11/16/24 field) -Photo Taken Yes Yes -Epithelialization Small 1-33% -Tunneling No -Undermining/Tunneling No -Maximum Distance #2 (cm) 0.2 -Circular Undermining Yes No -Exudate Amt Medium None Present Medium -Exudate Type Serosanguineous Yellow/Green Serosanguineous -Wound Margin Distinct, Distinct, Thickened & Outline Outline Rolled Under Attached Attached -Granulation Amt None Present (0 Small (1-33%) Small (1-33%) %) -Granulation Quality Deputy -Slough/Fibrin Yes -Necrosis Amt Small (1-33%) Medium (34-66%) Large (67-100%) -Necrotic Tissue Type Adherent Slough Adherent Slough -Structure Exposed N/A -Texture (Bell-wound Skin Appearance) Scarring Assessed Assessed, Localized Edema -Moisture (Bell-wound Skin Appearance) Maceration Assessed Assessed -Color (Bell-wound Skin Appearance) Erythema Assessed Assessed, Erythema -Temperature (Bell-wound Skin No Abnormality No Abnormality No Abnormality Appearance) (Pt Warm) (Pt Warm) (Pt Warm) -Tenderness on Palpation (Bell-wound No No Skin Appearance) -Ulcer Cleansing Soap and Water Rinsed/ Soap and Water Irrigated with Saline -Foul Odor after Cleansing No No No -Anesthetic Used 5% Lidocaine 5% Lidocaine 5% Lidocaine Gel Gel Gel Lower Limb Edema Present No Left Calf (cm) 27.5 Point of measurement (cm from the medial 28.2 instep) Left Ankle (cm) 19.7 Point of Measurement (cm from the medial 20.5 instep) 11/23/24 14:38 Wound Center Nurse 1 3-left foot -Current Size (cm) - Length 0.7 -Current Size (cm) - Width 1.8 -Current Size (cm) - Depth 0.2 -Total Square Cm 1.26 -Date of Last Picture (Recall this 11/23/24 field) -Photo Taken Yes -Epithelialization Small 1-33% -Tunneling No -Undermining/Tunneling No -Circular Undermining No -Exudate Amt Small -Exudate Type Yellow/Green -Wound Margin Distinct, Outline Attached -Granulation Amt Small (1-33%) -Granulation Quality -Slough/Fibrin Yes -Necrosis Amt Medium (34-66%) -Necrotic Tissue Type Adherent Slough -Structure Exposed -Texture (Bell-wound Skin Appearance) Assessed -Moisture (Bell-wound Skin Appearance) Assessed -Color (Bell-wound Skin Appearance) Assessed -Temperature (Bell-wound Skin No Abnormality Appearance) (Pt Warm) -Tenderness on Palpation (Bell-wound No Skin Appearance) -Ulcer Cleansing Rinsed/ Irrigated with Saline -Foul Odor after Cleansing No -Anesthetic Used 5% Lidocaine Gel #1- L MEDIAL ANKLE -Current Size (cm) - Length 0.7 -Current Size (cm) - Width 0.9 -Current Size (cm) - Depth 0.3 -Total Square Cm 0.63 -Date of Last Picture (Recall this 11/23/24 field) -Photo Taken Yes -Epithelialization Small 1-33% -Tunneling No -Undermining/Tunneling No -Maximum Distance #2 (cm) -Circular Undermining No -Exudate Amt Small -Exudate Type Yellow/Green -Wound Margin Distinct, Outline Attached -Granulation Amt Small (1-33%) -Granulation Quality -Slough/Fibrin Yes -Necrosis Amt Medium (34-66%) -Necrotic Tissue Type Adherent Slough -Structure Exposed -Texture (Bell-wound Skin Appearance) Assessed -Moisture (Bell-wound Skin Appearance) Assessed -Color (Bell-wound Skin Appearance) Assessed -Temperature (Bell-wound Skin No Abnormality Appearance) (Pt Warm) -Tenderness on Palpation (Bell-wound No Skin Appearance) -Ulcer Cleansing Rinsed/ Irrigated with Saline -Foul Odor after Cleansing No -Anesthetic Used 5% Lidocaine Gel Lower Limb Edema Present No Left Calf (cm) 29 Point of measurement (cm from the medial instep) Left Ankle (cm) 21.5 Point of Measurement (cm from the medial instep) WC - Nurse 2 - General Ulcer CM Notes Start: 11/02/24 14:42 Freq: Status: Active Protocol: Activity Type Activity Date Activity User E-sign Co-sign Detail Recorded Client Recorded Date Recorded By Document 11/02/24 15:07 [id number] 11/02/24 15:11 Document 11/09/24 11:53 [id number] 11/09/24 11:56 Document 11/16/24 14:45 [id number] 11/16/24 14:49 Document 11/23/24 14:56 [id number] 11/23/24 14:59 11/02/24 11/09/24 11/16/24 15:07 11:53 14:45 Wound Center Nurse 2 3-left foot -Time 15:08 11:53 14:46 -Correct Patient Yes Yes Yes -Correct Side, Site, Position Yes Yes Yes -Correct Procedure Yes Yes Yes -Procedure Performed Yes Yes Yes -Type of Procedure Debridement Debridement Debridement -Clinical Debridement Muscle / Fascia Muscle / Fascia Subcutaneous -Tissue Removed Muscle Tendon Subcutaneous -Post Debridement (cm) - Length 0.9 0.8 0.9 -Post Debridement (cm) - Width 1.7 1.8 1.8 -Post Debridement (cm) - Depth 0.2 0.2 0.2 -Total Square (Post) (cm) 1.53 1.44 1.62 -Area of Debridement (cm) - Length 0.9 0.8 0.9 -Area of Debridement (cm) - Width 1.7 1.8 1.8 -Total Square (Area) (cm) 1.53 1.44 1.62 -Tunneling No No No -Undermining/Tunneling No No No -Circular Undermining No No No -Wound/Ulcer Outcome Not Healed Not Healed Not Healed -Ulcer Cleansing Rinsed/ Rinsed/ Rinsed/ Irrigated with Irrigated with Irrigated with Saline Saline Saline -Foul Odor after Cleansing No No No -Bioengineered Tissue No No No -Bleeding Controlled with Pressure Pressure Pressure -Treatment Response Procedure Procedure Procedure Tolerated Well Tolerated Well Tolerated Well -Offloading No No No -Debridement - Subq, 1st 20sq cm Yes -Debridement - Muscle / Fascia, 1st No Yes 20sq cm #1- L MEDIAL ANKLE -Time 15:09 11:54 14:47 -Correct Patient Yes Yes Yes -Correct Side, Site, Position Yes Yes Yes -Correct Procedure Yes Yes Yes -Procedure Performed Yes Yes Yes -Type of Procedure Debridement Debridement Debridement -Clinical Debridement Muscle / Fascia Muscle / Fascia Muscle / Fascia -Tissue Removed Muscle Muscle Muscle -Post Debridement (cm) - Length 0.8 0.7 0.9 -Post Debridement (cm) - Width 1.0 0.8 0.9 -Post Debridement (cm) - Depth 0.3 0.3 0.3 -Total Square (Post) (cm) 0.80 0.56 0.81 -Area of Debridement (cm) - Length 0.8 0.7 0.9 -Area of Debridement (cm) - Width 1.0 0.8 0.9 -Total Square (Area) (cm) 0.80 0.56 0.81 -Tunneling No No No -Undermining/Tunneling No No No -Circular Undermining No Yes No -Wound/Ulcer Outcome Not Healed Not Healed Not Healed -Ulcer Cleansing Rinsed/ Rinsed/ Rinsed/ Irrigated with Irrigated with Irrigated with Saline Saline Saline -Foul Odor after Cleansing No No No -Bioengineered Tissue No No No -Bleeding Controlled with Pressure Pressure Pressure -Treatment Response Procedure Procedure Procedure Tolerated Well Tolerated Well Tolerated Well -Offloading No No No -Debridement - Muscle / Fascia, 1st Yes No Yes 20sq cm Pain Scale: 0-10 Numeric Is Patient Pain Free? Yes Yes Yes 11/23/24 14:56 Wound Center Nurse 2 3-left foot -Time 14:57 -Correct Patient Yes -Correct Side, Site, Position Yes -Correct Procedure Yes -Procedure Performed Yes -Type of Procedure Debridement -Clinical Debridement Muscle / Fascia -Tissue Removed Muscle -Post Debridement (cm) - Length 0.8 -Post Debridement (cm) - Width 1.5 -Post Debridement (cm) - Depth 0.2 -Total Square (Post) (cm) 1.20 -Area of Debridement (cm) - Length 0.8 -Area of Debridement (cm) - Width 1.5 -Total Square (Area) (cm) 1.20 -Tunneling No -Undermining/Tunneling No -Circular Undermining No -Wound/Ulcer Outcome Not Healed -Ulcer Cleansing Rinsed/ Irrigated with Saline -Foul Odor after Cleansing No -Bioengineered Tissue No -Bleeding Controlled with Pressure -Treatment Response Procedure Tolerated Well -Offloading No -Debridement - Subq, 1st 20sq cm -Debridement - Muscle / Fascia, 1st Yes 20sq cm #1- L MEDIAL ANKLE -Time 14:57 -Correct Patient Yes -Correct Side, Site, Position Yes -Correct Procedure Yes -Procedure Performed Yes -Type of Procedure Debridement -Clinical Debridement Muscle / Fascia -Tissue Removed Muscle -Post Debridement (cm) - Length 0.8 -Post Debridement (cm) - Width 1.0 -Post Debridement (cm) - Depth 0.3 -Total Square (Post) (cm) 0.80 -Area of Debridement (cm) - Length 0.8 -Area of Debridement (cm) - Width 1.0 -Total Square (Area) (cm) 0.80 -Tunneling No -Undermining/Tunneling No -Circular Undermining No -Wound/Ulcer Outcome Not Healed -Ulcer Cleansing Rinsed/ Irrigated with Saline -Foul Odor after Cleansing No -Bioengineered Tissue No -Bleeding Controlled with Pressure -Treatment Response Procedure Tolerated Well -Offloading No -Debridement - Muscle / Fascia, 1st No 20sq cm Pain Scale: 0-10 Numeric Is Patient Pain Free? Yes - Nurse 3 - General Ulcer D/C NN Start: 11/02/24 14:42 Freq: Status: Active Protocol: Activity Type Activity Date Activity User E-sign Co-sign Detail Recorded Client Recorded Date Recorded By Document 11/02/24 15:21 [facility] [id number] 11/02/24 15:22 [facility] Document 11/09/24 12:10 [id number] 11/09/24 12:11 Document 11/16/24 14:58 [id number] 11/16/24 14:58 11/02/24 11/09/24 11/16/24 15:21 12:10 14:58 Wound Care Center Nurse 3 3-left foot -Ulcer Cleansing Not Cleansed -Foul Odor after Cleansing No -Primary Dressing Applied Hysept -Other Dressing BETADINE SOAKED dakins gauze GAUZE -Primary Dressing Covered/Secured with Secured with Dry Gauze,Dry Dry Gauze & Tape Gauze & Roll Roll Gauze, Gauze,Secured Secured with with Tape Tape -Hysept 1 #1- L MEDIAL ANKLE -Ulcer Cleansing Not Cleansed -Foul Odor after Cleansing No -Negative Pressure Wound Therapy N/A -Other Dressing BETADINE SOAKED dakins gauze GAUZE -Primary Dressing Covered/Secured with Secured with Dry Gauze Dry Gauze Tape -Other Covering DAKINS LLE -Lotion applied to leg before No compression wrap -Tubular Bandage Single Layer Single Layer -Size of Tubigrip Used Size E Size E -Size E ($) 1 1 Treatment Response Procedure Tolerated Well Pain Scale: 0-10 Numeric Is Patient Pain Free? Yes Yes Yes - Visit Discharge Discharge Condition Stable Stable Stable Ambulatory Status Wheelchair Ambulatory Wheelchair Transportation Private Auto Private Auto Private Auto Accompanied by Medication Reconcilliation completed & No provided to patient/care provider Clinical Summary of Care Provided Yes Assessment/Plan Assessment/Plan (1) Non-pressure chronic ulcer of other part of left foot with necrosis of muscle: CODE(S): L97.523 - Non-pressure chronic ulcer of other part of left foot with necrosis of muscle PLAN: Patient was examined and evaluated. All findings were discussed with the patient. All questions were answered to the patient's satisfaction. Excisional debridement down to and including subcutaneous tissue, fascia and muscle to the left medial ankle full-thickness wound with a number 3 mm dermal curette and without incident. Predebridement measurement was 0.7 x 0.9 x 0.2 cm. Postdebridement measurement is 0.8 x 1.0 x 0.3 cm. Excisional debridement down to including subcutaneous tissue, fascia and muscle to left lower extremity first metatarsal phalangeal joint dorsally with a 3 mm dermal curette done without incident. Predebridement measurement was 0.7 x 0.4 x 0.1 cm. Postdebridement measurement is 0.8 x 1.5 x 0.2 cm 2 wounds right cleaned and patted dry. Dakins soaked gauze was applied to both wounds followed by dry sterile dressing and light compression wrap. Patient will continue daily dressing changes. Patient did see vascular surgery and has ordered a CTA that the patient will have done tomorrow at [facility]. The patient will follow-up with Dr. 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 (3) Other specified peripheral vascular diseases: CODE(S): I73.89 - Other specified peripheral vascular diseases
--- NOTE | 2024-11-25 08:57 | WC ---
PHOTO-LEFT MED ANKLE 11/23/24
--- NOTE | 2024-11-25 09:00 | WC ---
PHOTO-LEFT MED FOOT 11/23/24
== END 2024-11-29 23:59 | disposition home or self-care (01) ==
LOC: WC 14:15
PROVIDERS: PCP Family Medicine; Referring Provider Podiatrist Foot & Ankle Surgery; Visit Provider Podiatrist Foot & Ankle Surgery
DX: I73.89 Other specified peripheral vascular diseases (principal); L97.325 Non-pressure chronic ulcer of left ankle with muscle involvement without evidence of necrosis; L97.522 Non-pressure chronic ulcer of other part of left foot with fat layer exposed; M79.672 Pain in left foot; Z87.891 Personal history of nicotine dependence; L03.116 Cellulitis of left lower limb
CPT/HCPCS: 11042; 11043

== ENCOUNTER → 2024-11-24 | Outpatient (CLI) | payer MEDICARE, BC, SELFPAY ==
--- NOTE | 2024-11-24 14:41 | CT_ITS ---
PROCEDURE: CTA ABD W/RUNOFF W/WO CONTRAST 11/24/2024 REASON FOR EXAM: LLE ATHEROSCLEROSIS WITH ULCERATIONS TECHNIQUE: Procedure Code: [id number] Modality: CT Procedure: CTA ABD W/RUNOFF W/WO CONTRAST Multiplanar Sagittal and Coronal images were obtained. 3D and or MIPS post processing was performed CONTRAST: Optiray 320 VOLUME: 100 mL One or more dose reduction techniques were used (e.g., Automated exposure control, adjustment of the mA and/or kV according to patient size, use of iterative reconstruction technique). RADIATION DOSE SUMMARY: CTDlvol: 27 mGy DLP: 1261 mGycm COMPARISON: October 04, 2024 FINDINGS: Aorta: Timing and quality of the contrast bolus is diagnostic. Calcified and noncalcified plaque is seen along the course of the abdominal aorta that is primarily calcified in nature. Some fusiform dilation of the infrarenal aorta are shown above the bifurcation. Aorta is curving in the axial plane making measurement limited. Greatest transverse dimension free of curvature is 3 cm on image 58 in the proximal portion of the infrarenal aorta and 2.9 cm on image 66 in the more distal portion. No evidence of aortic dissection or rupture is seen. Celiac: Calcified atherosclerotic plaque is seen at the dorsal aspect of the origin of the celiac that is less than 50% narrowing. SMA: Circumferential calcified atherosclerotic plaque is seen at the origin of the SMA that is less than 50% narrowing. LAURA : Cbrp-tt-qceivjss atherosclerotic plaque. No definite findings of stenosis. Caliber is fairly small. Right Renal: Calcified plaque is seen primarily at the origin along the dorsal aspect. 25-50% narrowing. Left Renal: Calcified plaque near the origin. 25-50% narrowing. Iliac Arteries: No evidence of aneurysm or dissection. Severe calcified plaque is seen bilaterally. (Right) some narrowing of the distal common iliac is seen just proximal to the takeoff of the deep iliac. There is likely flow limitation at the very proximal portion of the deep iliac. Deep iliac is markedly irregular from calcified plaque. The proximal portion of the external iliac shows some plaque that is at least 50-69% narrowed. This is just proximal to a patent stent that extends up to the common femoral region. (Left) common iliac vessel is atherosclerotic without stenosis. The origin of the deep iliac shows large focus of eccentric plaque medially that may be flow-limiting. Deep iliac is markedly irregular from calcified plaque along its length. The external iliac shows both calcified and soft plaque at its origin followed by the majority of the external iliac showing focal thrombosis. This reconstitutes at the common femoral region where there is eccentric plaque. Right runoff: Superficial femoral artery is thrombosed. Deep iliac is patent with some ddsg-st-iewjaamf eccentric plaque present. Vqtge-fou-dxuo there is very habit atherosclerotic plaque involving the tibioperoneal trunk, anterior tibial, peroneal and posterior tibial arteries. The degree of atherosclerotic calcification limits evaluation of the lumen. The reconstructions of each vessel appear to show patency but the density is likely the calcification of the plaque rather than contrast in the lumen. Left runoff: Superficial femoral artery is thrombosed. Deep iliac is patent with some ktcz-xc-knnuxoja eccentric plaque present. Sdptm-vvg-hdmm there is very heavy atherosclerotic plaque involving the tibioperoneal trunk, anterior tibial, peroneal and posterior tibial arteries. The degree of atherosclerotic calcification limits evaluation of the lumen. The reconstructions of each vessel appear to show patency but the density is likely the calcification of the plaque rather than contrast in the lumen. Extravascular Findings: The liver, spleen, pancreas, adrenals appear normal. Simple cyst at the ventral right lower pole is 20 mm and benign. Small sliding hiatus hernia. Stomach, small bowel appear normal. A few scattered colonic diverticula are present without diverticulitis. Normal appendix. No free fluid is seen in the abdomen. Some perinephric sweat is present, which can be seen with renal dysfunction. No lymphadenopathy. Urinary bladder is nearly empty but otherwise normal. No lymphadenopathy or free fluid in the pelvis. Bone demineralization is present.. Degenerative changes are seen of the 1st interphalangeal joints, 1st MTP joints, proximal intermetatarsal joints, left posterior subtalar joint, bilateral hips, symphysis pubis. Grade 1 anterolisthesis L5 on S1 from bilateral pars defects. Vertebral body height loss of the superior endplate of L4 from insufficiency. Degenerative endplate changes L3/4 and L4/5. Incompletely healed fractures of the 8th and 9th ribs on the left with some adjacent scarring in the left lower lobe. Cavitary lesion in the left lower thorax with some surrounding scarring similar to prior. Background emphysema is present. Advanced coronary artery atherosclerosis is present. CT/CTA Abd w/Runoff W/WO Contrast IMPRESSION: 1. Advanced atherosclerosis of the aorta with borderline fusiform dilation bel ow the renal arteries. 2. No flow-limiting stenosis in the splanchnic vessels (celiac, SMA, LAURA, jazmyn l arteries). 3. Thrombosis left external iliac. Flow-limiting stenosis proximal left deep iliac. Thrombosis left SFA. See above left runoff section. 4. Flow-limiting stenosis proximal right deep iliac. Thrombosis right SFA. S ee above right runoff section. 5. Benign renal cyst. Bosniak 1. No follow-up required. 6. Advanced atherosclerosis of the coronary arteries. Scarring in the periphe ry of the left lower lobe with pleural base cavitary lesion and adjacent incompletely healed rib fractures. No change. Co rrelate with dedicated prior chest CT. 7. Insufficiency fracture superior endplate of L4 similar to prior. Grade 1 a nterolisthesis L5 on S1 from bilateral pars defects. Reading Location: [id number]
== END | disposition home or self-care (01) ==
LOC: CT 14:40
PROVIDERS: PCP Family Medicine; Referring Provider Physician Assistant; Visit Provider Physician Assistant
DX: I70.249 Atherosclerosis of native arteries of left leg with ulceration of unspecified site (principal); L97.529 Non-pressure chronic ulcer of other part of left foot with unspecified severity; Z98.62 Peripheral vascular angioplasty status
CPT/HCPCS: 75635; Q9967; A4216

== ENCOUNTER → 2024-12-15 | Outpatient (CLI) | payer MEDICARE, BC, SELFPAY ==
[2024-12-15 14:50] LABS: Hematocrit 37.9 % (40-54); Hemoglobin 11.6 g/dL (13.0-16.5); Immature Granulocytes Count 0.030 X10^3/uL (0.0-0.0); Mean Corp Hgb Conc 30.6 g/dL (32-36); Mean Corpuscular Volume 88.8 fL (80-94); Mean Platelet Vol. 8.4 fl (6.2-12.0); NRBC Flagged by Analyzer 0 % (0-5); Platelet Count 185 K/mm3 (150-450); RBC Distribution Width CV 16.5 % (11.6-14.6); RBC Distribution Width SD 54.0 fl (35.1-43.9); Red Blood Count 4.27 M/mm3 (4.6-6.2); White Blood Count 7.2 K/mm3 (4.4-11.0)
[2024-12-15 15:23] LABS: Iron 38 ug/dL (65-175); Iron Binding Capacity,Total 292 ug/dL (250-450); Iron Binding Capacity,Unsat 254 ug/dL (228-428)
== END | disposition home or self-care (01) ==
LOC: LAB 14:19
PROVIDERS: PCP Family Medicine; Referring Provider Student in an Organized Health Care Education/Training Program; Visit Provider Student in an Organized Health Care Education/Training Program
DX: K55.20 Angiodysplasia of colon without hemorrhage (principal); D64.9 Anemia, unspecified
CPT/HCPCS: 36415; 83540; 83550; 85025

== ENCOUNTER 2024-12-28 14:30 | Outpatient (RCR) | payer MEDICARE, BC, SELFPAY ==
[2024-11-30 14:54] VITALS: BP 124/69; PULSE 72; RESP 24; TEMP 36.1
--- NOTE | 2024-11-30 15:32 | PCM.WC.PN ---
History of Present Illness Date of Service: 11/30/24 Chief Complaint: Left medial ankle and left foot ulcers History of Wound: This is an 84-year-old male with a left medial ankle ulcer that had been seeing Human Services Care Specialist, Dr. Drew, at the [facility]. The patient has a significant history for COPD, and is on home O2. He also has a history of Prostate CA, Squamous carcinoma of left lung, HTN, anxiety and depression, AAA without rupture, CAD, coronary artery stent placement (multiple), CABG x 3, former smoker, PAD, PBH, and pulmonary embolism-on anticoagulants, and hyperlipidemia. He has had arterial studies in the past and had some vascular procedures (by Dr. Freeman) to his left leg. He denies a history of diabetes. His providers are all with [facility]. He has had this left medial ankle ulcer for more than 3 months. He had been placing Santyl covered with [place] [facility]. There had not been much improvement to this area, and he was referred to see us by [facility], and that Dr. Drew also suggested he get a second opinion. The patient is seen at this time as a courtesy to his regular Wound Center provider, Dr. Rasta Mazariegos, who is unavailable this week. Progress of Wound: Stable full-thickness wound to the left ankle and left foot. Subjective Subjective Patient is 84-year-old male presenting to clinic today follow-up evaluation of full-thickness wound to left ankle and dorsal aspect of first metatarsophalangeal joint. Patient has been doing dressing changes as discussed. His wounds are slow to heal. Patient did receive his CTA scan but has not followed back with vascular surgery so hopefully next week he will be following up for discussion about possible intervention. He denies trauma. Denies constitutional symptoms. No other pedal complaints at this time. Objective Data Objective Data Vital Signs: Vital Signs Temp Pulse Resp BP O2 Del Method O2 Flow Rate 97.0 F L 72 24 H 124/69 H Nasal Cannula 4 11/30/24 14:54 11/30/24 14:54 11/30/24 14:54 11/30/24 14:54 11/30/24 14:54 11/30/24 14:54 Oxygen Flow Rate (L/min) 4 Oxygen Delivery Method Nasal Cannula Physical Exam Narrative Vascular: DP and PT pulses are faintly palpable. CFT is brisk. No erythema to the left ankle or first metatarsophalangeal joint left foot. No sign of proximal streaking. Neurological: Light touch intact. Patient does despond painful stimuli. Dermatological: Full-thickness wound to left medial ankle measuring 0.8 x 1.0 x 0.3 cm. Wound base is granular nature. No circumferential undermining noted at this time. Evidence of full-thickness wound to the dorsal aspect of first metatarsophalangeal joint to left lower extremity. Full-thickness wound measures 0.9 x 1.6 x 0.1 cm. Evidence of exposed fascia and subcutaneous tissue. Wound is stable with no sign of infection. Excisional debridement down to and including subcutaneous tissue, fascia and muscle to the left medial ankle full-thickness wound with a number 3 mm dermal curette and without incident. Predebridement measurement was 0.7 x 1.0 x 0.2 cm. Postdebridement measurement is 0.8 x 1.0 x 0.3 cm. Excisional debridement down to including subcutaneous tissue to left lower extremity first metatarsal phalangeal joint dorsally with a 3 mm dermal curette done without incident. Predebridement measurement was 0.8 x 1.4 x 0.1 cm. Postdebridement measurement is 0.9 x 1.6 x 0.1 cm Musculoskeletal: No pain on palpation to the left ankle and 1st MPJ full thickness wounds. No pain with calf pressure. Debridement Note Debridement Note Debridement Free Text: Excisional debridement down to and including subcutaneous tissue, fascia and muscle to the left medial ankle full-thickness wound with a number 3 mm dermal curette and without incident. Predebridement measurement was 0.7 x 1.0 x 0.2 cm. Postdebridement measurement is 0.8 x 1.0 x 0.3 cm. Excisional debridement down to including subcutaneous tissue to left lower extremity first metatarsal phalangeal joint dorsally with a 3 mm dermal curette done without incident. Predebridement measurement was 0.8 x 1.4 x 0.1 cm. Postdebridement measurement is 0.9 x 1.6 x 0.1 cm Post-Debridement Measurements and Additional Note: Post-Debridement Measurements/Treatment WC - Nurse 1 - General Ulcer Assessment Start: 11/30/24 14:54 Freq: Status: Active Protocol: WC.LOWEXT Activity Type Activity Date Activity User E-sign Co-sign Detail Recorded Client Recorded Date Recorded By Document 11/30/24 14:54 [id number] 11/30/24 15:02 11/30/24 14:54 - Today's Visit Information Type of service Follow-up Visit (Physician/[employer] ) Arrival Mode Wheelchair Transfer Assistance None Patient Identification Verified (Name & Yes ) Vital Signs Temperature (97.8 F-99.1 F) 97.0 F L Temperature Source Temporal Pulse Rate (60-100) 72 Pulse Location Monitor Respiratory Rate (12-18) 24 H Respiratory rate source Observation Oxygen Delivery Method Nasal Cannula O2 L/MIN (L/min) 4 Blood Pressure (90/60-120/80) 124/69 H Blood Pressure Mean (mm Hg) 87 Source Monitor Position Sitting Blood Pressure Location Right Arm History Since Last Visit- (Skip if this is Patient's initial visit) Have you changed medications since your No last visit? Any new allergies or adverse reactions No Had a fall/change in ADL's that may No increase risk of falls Signs or symptoms of abuse and/or No neglect since last visit Have you been in the hospital since your No last visit? Has dressing in place as prescribed Yes Has compression in place as prescribed No Has offloadiing in place as prescribed N/A Experienced any changes in pain level or No management Left Footwear Regular Shoe Right Footwear Regular Shoe Pain Scale: 0-10 Numeric Is Patient Pain Free? Yes - Nurse 1 - General Ulcer Measurement Start: 11/30/24 14:54 Freq: Status: Active Protocol: Activity Type Activity Date Activity User E-sign Co-sign Detail Recorded Client Recorded Date Recorded By Document 11/30/24 14:54 [id number] 11/30/24 15:02 11/30/24 14:54 Wound Center Nurse 1 3-left foot -Current Size (cm) - Length 1.0 -Current Size (cm) - Width 1.5 -Current Size (cm) - Depth 0.2 -Total Square Cm 1.50 -Date of Last Picture (Recall this 11/30/24 field) -Photo Taken Yes -Epithelialization Small 1-33% -Tunneling No -Undermining/Tunneling No -Circular Undermining No -Exudate Amt Small -Exudate Type Yellow/Green -Wound Margin Distinct, Outline Attached -Granulation Amt Medium (34-66%) -Granulation Quality [place] -Slough/Fibrin Yes -Necrosis Amt Small (1-33%) -Necrotic Tissue Type Adherent Slough -Texture (Bell-wound Skin Appearance) No Abnormality, Assessed -Moisture (Bell-wound Skin Appearance) No Abnormality, Assessed -Color (Bell-wound Skin Appearance) No Abnormality, Assessed -Temperature (Bell-wound Skin No Abnormality Appearance) (Pt Warm) -Tenderness on Palpation (Bell-wound No Skin Appearance) -Ulcer Cleansing Rinsed/ Irrigated with Saline -Foul Odor after Cleansing No -Anesthetic Used 5% Lidocaine Gel #1- L MEDIAL ANKLE -Current Size (cm) - Length 0.8 -Current Size (cm) - Width 0.9 -Current Size (cm) - Depth 0.4 -Total Square Cm 0.72 -Date of Last Picture (Recall this 11/30/24 field) -Photo Taken Yes -Epithelialization Small 1-33% -Tunneling No -Undermining/Tunneling No -Circular Undermining No -Exudate Amt Small -Exudate Type Yellow/Green -Wound Margin Distinct, Outline Attached -Granulation Amt Small (1-33%) -Granulation Quality [place] -Slough/Fibrin No -Necrosis Amt None Present (0 %) -Texture (Bell-wound Skin Appearance) Assessed -Moisture (Bell-wound Skin Appearance) Assessed -Color (Bell-wound Skin Appearance) Assessed -Temperature (Bell-wound Skin No Abnormality Appearance) (Pt Warm) -Tenderness on Palpation (Bell-wound No Skin Appearance) -Ulcer Cleansing Rinsed/ Irrigated with Saline -Foul Odor after Cleansing No -Anesthetic Used 5% Lidocaine Gel WC - Nurse 2 - General Ulcer CM Notes Start: 11/30/24 14:54 Freq: Status: Active Protocol: Activity Type Activity Date Activity User E-sign Co-sign Detail Recorded Client Recorded Date Recorded By Document 11/30/24 15:10 SONNY [id number] 11/30/24 15:14 SONNY 11/30/24 15:10 Wound Center Nurse 2 3-left foot -Time 15:12 -Correct Patient Yes -Correct Side, Site, Position Yes -Correct Procedure Yes -Procedure Performed Yes -Type of Procedure Debridement -Clinical Debridement Subcutaneous -Tissue Removed Subcutaneous -Tunneling No -Undermining/Tunneling No -Circular Undermining No -Wound/Ulcer Outcome Not Healed -Ulcer Cleansing Rinsed/ Irrigated with Saline -Foul Odor after Cleansing No -Bioengineered Tissue No -Bleeding Controlled with Pressure -Treatment Response Procedure Tolerated Well -Offloading No -Debridement - Subq, 1st 20sq cm Yes #1- L MEDIAL ANKLE -Time 15:13 -Correct Patient Yes -Correct Side, Site, Position Yes -Correct Procedure Yes -Procedure Performed Yes -Type of Procedure Debridement -Clinical Debridement Muscle / Fascia -Tissue Removed Muscle -Post Debridement (cm) - Length 0.8 -Post Debridement (cm) - Width 1.0 -Post Debridement (cm) - Depth 0.3 -Total Square (Post) (cm) 0.80 -Area of Debridement (cm) - Length 0.8 -Area of Debridement (cm) - Width 1.0 -Total Square (Area) (cm) 0.80 -Tunneling No -Undermining/Tunneling No -Circular Undermining No -Wound/Ulcer Outcome Not Healed -Ulcer Cleansing Rinsed/ Irrigated with Saline -Foul Odor after Cleansing No -Bioengineered Tissue No -Bleeding Controlled with Pressure -Treatment Response Procedure Tolerated Well -Offloading No -Debridement - Muscle / Fascia, 1st Yes 20sq cm Pain Scale: 0-10 Numeric Is Patient Pain Free? Yes - Nurse 3 - General Ulcer D/C NN Start: 11/30/24 14:54 Freq: Status: Active Protocol: Activity Type Activity Date Activity User E-sign Co-sign Detail Recorded Client Recorded Date Recorded By Document 11/30/24 15:24 [id number] 11/30/24 15:26 RB 11/30/24 15:24 Wound Care Center Nurse 3 3-left foot -Other Dressing DAKINS MOISTENED GAUZE -Primary Dressing Covered/Secured with Dry Gauze & Roll Gauze, Secured with Tape #1- L MEDIAL ANKLE -Other Dressing DAKINS MOISTENED GAUZE -Primary Dressing Covered/Secured with Dry Gauze & Roll Gauze, Secured with Tape LLE -Tubular Bandage Single Layer -Size of Tubigrip Used Size E -Size E ($) 1 Treatment Response Procedure Tolerated Well Pain Scale: 0-10 Numeric Is Patient Pain Free? 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 All findings were discussed with the patient. All questions were answered to the patient's satisfaction. Excisional debridement down to and including subcutaneous tissue, fascia and muscle to the left medial ankle full-thickness wound with a number 3 mm dermal curette and without incident. Predebridement measurement was 0.7 x 1.0 x 0.2 cm. Postdebridement measurement is 0.8 x 1.0 x 0.3 cm. Excisional debridement down to including subcutaneous tissue to left lower extremity first metatarsal phalangeal joint dorsally with a 3 mm dermal curette done without incident. Predebridement measurement was 0.8 x 1.4 x 0.1 cm. Postdebridement measurement is 0.9 x 1.6 x 0.1 cm The left ankle and foot were plain and patted dry. Dakin soaked gauze from a dry sterile dressing light compression wrap was donned to the left lower extremity. Patient continue daily dressing changes. Patient did receive a CTA with [facility] but has yet to follow-up with vascular surgery. I did recommend the patient that he needs to wait to hear from them for follow-up but he could also call and ask for appointment. Reviewing the CTA shows real concern for decreased blood flow to the left and right lower extremity. Due to the fact of the delayed healing of the 2 full-thickness wounds the patient does need intervention and will most likely not heal these wounds due to the decreased blood flow. I also educated the patient that if he wants second opinion I would ask Dr. Allen if he is willing to send referral up to [facility] The patient will follow-up with Dr. Mazariegos in 1 week. (2) Non-pressure chronic ulcer of other part of left foot with fat layer exposed: CODE(S): L97.522 - Non-pressure chronic ulcer of other part of left foot with fat layer exposed (3) Other specified peripheral vascular diseases: CODE(S): I73.89 - Other specified peripheral vascular diseases
--- NOTE | 2024-12-01 10:14 | WC ---
PHOTO-LEFT FOOT 11/30/24
--- NOTE | 2024-12-01 10:14 | WC ---
PHOTO-LEFT ANKLE 11/30/24
[2024-12-07 15:18] VITALS: BP 145/74; PULSE 56; RESP 20; TEMP 36.1
--- NOTE | 2024-12-07 15:49 | PCM.WC.PN ---
History of Present Illness Date of Service: 12/07/24 Chief Complaint: Left medial ankle and left foot ulcers History of Wound: This is an 84-year-old male with a left medial ankle ulcer that had been seeing Operations Manager Station, Dr. Drew, at the [facility]. The patient has a significant history for COPD, and is on home O2. He also has a history of Prostate CA, Squamous carcinoma of left lung, HTN, anxiety and depression, AAA without rupture, CAD, coronary artery stent placement (multiple), CABG x 3, former smoker, PAD, PBH, and pulmonary embolism-on anticoagulants, and hyperlipidemia. He has had arterial studies in the past and had some vascular procedures (by Dr. Freeman) to his left leg. He denies a history of diabetes. His providers are all with [facility]. He has had this left medial ankle ulcer for more than 3 months. He had been placing Santyl covered with [place] [employer]. There had not been much improvement to this area, and he was referred to see us by [facility], and that Dr. Drew also suggested he get a second opinion. The patient is seen at this time as a courtesy to his regular Wound Center provider, Dr. Rasta Mazariegos, who is unavailable this week. Progress of Wound: Stable full-thickness wound to the left ankle and left foot. Subjective Subjective Patient is 84-year-old male presented to clinic today follow-up evaluation of left ankle and foot full-thickness wounds. He has followed up with referral to Dr. Allen and will be seeing him on 12/20/2024 for evaluation. Patient understands the need for surgical/vascular intervention to help reestablish better blood flow to left lower extremity to help heal his wounds. He has been compliant with dressing changes. He has no pain. Denies trauma. Denies constitutional symptoms. No other pedal complaints at this time. Objective Data Objective Data Vital Signs: Vital Signs Temp Pulse Resp BP O2 Del Method O2 Flow Rate 97 F L 56 L 20 H 145/74 H Nasal Cannula 4 12/07/24 15:18 12/07/24 15:18 12/07/24 15:18 12/07/24 15:18 12/07/24 15:18 12/07/24 15:18 Oxygen Flow Rate (L/min) 4 Oxygen Delivery Method Nasal Cannula Physical Exam Narrative Vascular: DP and PT pulses are faintly palpable. CFT is brisk. No erythema to the left ankle or first metatarsophalangeal joint left foot. No sign of proximal streaking. Neurological: Light touch intact. Patient does despond painful stimuli. Dermatological: Full-thickness wound to left medial ankle measuring 0.9 x 1.0 x 0.3 cm. Wound base is granular nature. No circumferential undermining noted at this time. Evidence of full-thickness wound to the dorsal aspect of first metatarsophalangeal joint to left lower extremity. Full-thickness wound measures 0.7 x 1.5 x 0.3 cm. Evidence of exposed fascia and subcutaneous tissue. Wound is stable with no sign of infection. Excisional debridement down to and including subcutaneous tissue, fascia and muscle to the left medial ankle full-thickness wound with a number 3 mm dermal curette and without incident. Predebridement measurement was 0.8 x 0.9 x 0.2 cm. Postdebridement measurement is 0.9 x 1.0 x 0.3 cm. Excisional debridement down to including subcutaneous tissue, fascia and muscle to left lower extremity first metatarsal phalangeal joint dorsally with a 3 mm dermal curette done without incident. Predebridement measurement was 0.6 x 1.3 x 0.2 cm. Postdebridement measurement is 0.7 x 1.5 x 0.3 cm. Musculoskeletal: No pain on palpation to the left ankle and 1st MPJ full thickness wounds. No pain with calf pressure. Debridement Note Debridement Note Debridement Free Text: Excisional debridement down to and including subcutaneous tissue, fascia and muscle to the left medial ankle full-thickness wound with a number 3 mm dermal curette and without incident. Predebridement measurement was 0.8 x 0.9 x 0.2 cm. Postdebridement measurement is 0.9 x 1.0 x 0.3 cm. Excisional debridement down to including subcutaneous tissue, fascia and muscle to left lower extremity first metatarsal phalangeal joint dorsally with a 3 mm dermal curette done without incident. Predebridement measurement was 0.6 x 1.3 x 0.2 cm. Postdebridement measurement is 0.7 x 1.5 x 0.3 cm. Post-Debridement Measurements and Additional Note: Post-Debridement Measurements/Treatment WC - Nurse 1 - General Ulcer Assessment Start: 11/30/24 14:54 Freq: Status: Active Protocol: MILENA Activity Type Activity Date Activity User E-sign Co-sign Detail Recorded Client Recorded Date Recorded By Document 11/30/24 14:54 [id number] 11/30/24 15:02 GM Document 12/07/24 15:18 RB [id number] 12/07/24 15:20 RB 11/30/24 12/07/24 14:54 15:18 - Today's Visit Information Type of service Follow-up Visit Follow-up Visit (Physician/SYSTEMS PROJECT MANAGER (Physician/SYSTEMS PROJECT MANAGER ) ) Arrival Mode Wheelchair Ambulatory Transfer Assistance None None Patient Identification Verified (Name & Yes Yes ) Patient Requires Transmission-Based No Precautions Vital Signs Temperature (97.8 F-99.1 F) 97.0 F L 97 F L Temperature Source Temporal Temporal Pulse Rate (60-100) 72 56 L Pulse Location Monitor Monitor Respiratory Rate (12-18) 24 H 20 H Respiratory rate source Observation Observation Oxygen Delivery Method Nasal Cannula Nasal Cannula O2 L/MIN (L/min) 4 4 Blood Pressure (90/60-120/80) 124/69 H 145/74 H Blood Pressure Mean (mm Hg) 87 97 Source Monitor Position Sitting Blood Pressure Location Right Arm History Since Last Visit- (Skip if this is Patient's initial visit) Have you changed medications since your No No last visit? Any new allergies or adverse reactions No No Had a fall/change in ADL's that may No No increase risk of falls Signs or symptoms of abuse and/or No No neglect since last visit Have you been in the hospital since your No No last visit? Has dressing in place as prescribed Yes Yes Has compression in place as prescribed No N/A Has offloadiing in place as prescribed N/A N/A Experienced any changes in pain level or No No management Left Footwear Regular Shoe Right Footwear Regular Shoe Pain Scale: 0-10 Numeric Is Patient Pain Free? Yes Yes - Nurse 1 - General Ulcer Measurement Start: 11/30/24 14:54 Freq: Status: Active Protocol: Activity Type Activity Date Activity User E-sign Co-sign Detail Recorded Client Recorded Date Recorded By Document 11/30/24 14:54 [id number] 11/30/24 15:02 Document 12/07/24 15:18 RB [id number] 12/07/24 15:20 RB 11/30/24 12/07/24 14:54 15:18 Wound Center Nurse 1 3-left foot -Combined with other wound No -Combined with (Name of Wound-Exactly .9 as it is documented) -Current Size (cm) - Length 1.0 1.4 -Current Size (cm) - Width 1.5 0.2 -Current Size (cm) - Depth 0.2 -Total Square Cm 1.50 0.28 -Date of Last Picture (Recall this 11/30/24 field) -Photo Taken Yes Yes -Epithelialization Small 1-33% -Tunneling No No -Undermining/Tunneling No No -Circular Undermining No No -Exudate Amt Small Medium -Exudate Type Yellow/Green Serosanguineous -Wound Margin Distinct, Thickened & Outline Rolled Under Attached -Granulation Amt Medium (34-66%) Medium (34-66%) -Granulation Quality Steilacoom Steilacoom -Slough/Fibrin Yes Yes -Necrosis Amt Small (1-33%) Medium (34-66%) -Necrotic Tissue Type Adherent Slough Adherent Slough -Structure Exposed N/A -Texture (Bell-wound Skin Appearance) No Abnormality, Assessed Assessed -Moisture (Bell-wound Skin Appearance) No Abnormality, Assessed Assessed -Color (Bell-wound Skin Appearance) No Abnormality, Assessed, Assessed Erythema -Temperature (Bell-wound Skin No Abnormality No Abnormality Appearance) (Pt Warm) (Pt Warm) -Tenderness on Palpation (Bell-wound No No Skin Appearance) -Ulcer Cleansing Rinsed/ Wound Cleanser Irrigated with Saline -Foul Odor after Cleansing No No -Anesthetic Used 5% Lidocaine 5% Lidocaine Gel Gel #1- L MEDIAL ANKLE -Combined with other wound No -Current Size (cm) - Length 0.8 0.9 -Current Size (cm) - Width 0.9 1.1 -Current Size (cm) - Depth 0.4 0.3 -Total Square Cm 0.72 0.99 -Date of Last Picture (Recall this 11/30/24 field) -Photo Taken Yes Yes -Epithelialization Small 1-33% -Tunneling No No -Undermining/Tunneling No No -Circular Undermining No No -Exudate Amt Small Medium -Exudate Type Yellow/Green Serosanguineous -Wound Margin Distinct, Thickened & Outline Rolled Under Attached -Granulation Amt Small (1-33%) Medium (34-66%) -Granulation Quality Steilacoom Steilacoom -Slough/Fibrin No Yes -Necrosis Amt None Present (0 Medium (34-66%) %) -Necrotic Tissue Type Adherent Slough -Structure Exposed N/A -Texture (Bell-wound Skin Appearance) Assessed Assessed -Moisture (Bell-wound Skin Appearance) Assessed Assessed -Color (Bell-wound Skin Appearance) Assessed Assessed, Erythema -Temperature (Bell-wound Skin No Abnormality No Abnormality Appearance) (Pt Warm) (Pt Warm) -Tenderness on Palpation (Bell-wound No No Skin Appearance) -Ulcer Cleansing Rinsed/ Wound Cleanser Irrigated with Saline -Foul Odor after Cleansing No No -Anesthetic Used 5% Lidocaine 5% Lidocaine Gel Gel WC - Nurse 2 - General Ulcer CM Notes Start: 11/30/24 14:54 Freq: Status: Active Protocol: Activity Type Activity Date Activity User E-sign Co-sign Detail Recorded Client Recorded Date Recorded By Document 11/30/24 15:10 [id number] 11/30/24 15:14 Document 12/07/24 15:39 [id number] 12/07/24 15:42 11/30/24 12/07/24 15:10 15:39 Wound Center Nurse 2 3-left foot -Time 15:12 15:39 -Correct Patient Yes Yes -Correct Side, Site, Position Yes Yes -Correct Procedure Yes Yes -Procedure Performed Yes Yes -Type of Procedure Debridement Debridement -Clinical Debridement Subcutaneous Muscle / Fascia -Tissue Removed Subcutaneous Muscle -Post Debridement (cm) - Length 0.7 -Post Debridement (cm) - Width 1.5 -Post Debridement (cm) - Depth 0.3 -Total Square (Post) (cm) 1.05 -Area of Debridement (cm) - Length 0.7 -Area of Debridement (cm) - Width 1.5 -Total Square (Area) (cm) 1.05 -Tunneling No No -Undermining/Tunneling No No -Circular Undermining No No -Wound/Ulcer Outcome Not Healed Not Healed -Ulcer Cleansing Rinsed/ Rinsed/ Irrigated with Irrigated with Saline Saline -Foul Odor after Cleansing No No -Bioengineered Tissue No No -Bleeding Controlled with Pressure Pressure -Treatment Response Procedure Procedure Tolerated Well Tolerated Well -Offloading No No -Debridement - Subq, 1st 20sq cm Yes -Debridement - Muscle / Fascia, 1st Yes 20sq cm #1- L MEDIAL ANKLE -Time 15:13 15:40 -Correct Patient Yes Yes -Correct Side, Site, Position Yes Yes -Correct Procedure Yes Yes -Procedure Performed Yes Yes -Type of Procedure Debridement Debridement -Clinical Debridement Muscle / Fascia Muscle / Fascia -Tissue Removed Muscle Muscle -Post Debridement (cm) - Length 0.8 0.9 -Post Debridement (cm) - Width 1.0 1.0 -Post Debridement (cm) - Depth 0.3 0.3 -Total Square (Post) (cm) 0.80 0.90 -Area of Debridement (cm) - Length 0.8 0.9 -Area of Debridement (cm) - Width 1.0 1.0 -Total Square (Area) (cm) 0.80 0.90 -Tunneling No No -Undermining/Tunneling No No -Circular Undermining No No -Wound/Ulcer Outcome Not Healed Not Healed -Ulcer Cleansing Rinsed/ Rinsed/ Irrigated with Irrigated with Saline Saline -Foul Odor after Cleansing No No -Bioengineered Tissue No No -Bleeding Controlled with Pressure Pressure -Treatment Response Procedure Procedure Tolerated Well Tolerated Well -Offloading No No -Debridement - Muscle / Fascia, 1st Yes No 20sq cm Pain Scale: 0-10 Numeric Is Patient Pain Free? Yes Yes - Nurse 3 - General Ulcer D/C NN Start: 11/30/24 14:54 Freq: Status: Active Protocol: Activity Type Activity Date Activity User E-sign Co-sign Detail Recorded Client Recorded Date Recorded By Document 11/30/24 15:24 [id number] 11/30/24 15:26 RB 11/30/24 15:24 Wound Care Center Nurse 3 3-left foot -Other Dressing DAKINS MOISTENED GAUZE -Primary Dressing Covered/Secured with Dry Gauze & Roll Gauze, Secured with Tape #1- L MEDIAL ANKLE -Other Dressing DAKINS MOISTENED GAUZE -Primary Dressing Covered/Secured with Dry Gauze & Roll Gauze, Secured with Tape LLE -Tubular Bandage Single Layer -Size of Tubigrip Used Size E -Size E ($) 1 Treatment Response Procedure Tolerated Well Pain Scale: 0-10 Numeric Is Patient Pain Free? 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 All findings were discussed with the patient. All questions were answered to the patient's satisfaction. Excisional debridement down to and including subcutaneous tissue, fascia and muscle to the left medial ankle full-thickness wound with a number 3 mm dermal curette and without incident. Predebridement measurement was 0.8 x 0.9 x 0.2 cm. Postdebridement measurement is 0.9 x 1.0 x 0.3 cm. Excisional debridement down to including subcutaneous tissue, fascia and muscle to left lower extremity first metatarsal phalangeal joint dorsally with a 3 mm dermal curette done without incident. Predebridement measurement was 0.6 x 1.3 x 0.2 cm. Postdebridement measurement is 0.7 x 1.5 x 0.3 cm. The left lower extremities are cleaned and patted dry. AMB pad soaked with Dakin's were applied to both full-thickness wound without incident. They were dressed with dry sterile dressing and a light compression wrap was donned. Patient will do daily dressing changes as above. I educated the patient on signs symptoms of infection. Patient will plan to follow-up with Dr. Allen for evaluation of his CTA and consultation on 12/20/2024. I did educate the patient that it is very imperative that he establish a relationship with Dr. Allen for possible surgical intervention or get a new referral as needed. The patient will follow-up with Dr. Mazariegos in 1 week. (2) Non-pressure chronic ulcer of other part of left foot with necrosis of muscle: CODE(S): L97.523 - Non-pressure chronic ulcer of other part of left foot with necrosis of muscle (3) Other specified peripheral vascular diseases: CODE(S): I73.89 - Other specified peripheral vascular diseases
[2024-12-14 14:24] VITALS: BP 128/66; PULSE 77; RESP 20; TEMP 36.2
--- NOTE | 2024-12-15 10:24 | WC ---
PHOTO-LEFT MEDIAL ANKLE 12/14/24
--- NOTE | 2024-12-15 10:27 | WC ---
PHOTO-LEFT FOOT 12/14/24
--- NOTE | 2024-12-17 11:57 | PCM.WC.PN ---
History of Present Illness Date of Service: 12/14/24 Chief Complaint: Left medial ankle and left foot ulcers History of Wound: This is an 84-year-old male with a left medial ankle ulcer that had been seeing Client Delivery Manager, Dr. Drew, at the [facility]. The patient has a significant history for COPD, and is on home O2. He also has a history of Prostate CA, Squamous carcinoma of left lung, HTN, anxiety and depression, AAA without rupture, CAD, coronary artery stent placement (multiple), CABG x 3, former smoker, PAD, PBH, and pulmonary embolism-on anticoagulants, and hyperlipidemia. He has had arterial studies in the past and had some vascular procedures (by Dr. Freeman) to his left leg. He denies a history of diabetes. His providers are all with [facility]. He has had this left medial ankle ulcer for more than 3 months. He had been placing Santyl covered with [place] [facility]. There had not been much improvement to this area, and he was referred to see us by [facility], and that Dr. Drew also suggested he get a second opinion. The patient is seen at this time as a courtesy to his regular Wound Center provider, Dr. Rasta Mazariegos, who is unavailable this week. Progress of Wound: Stable full-thickness wound to the left ankle and left foot. Subjective Subjective Patient is 84-year-old male presenting to clinic today for follow-up evaluation of full-thickness wound to the ankle and the foot to the left lower extremity. He will be following up with Dr. Allen on 12/20. Patient is doing dressing changes as discussed and notices improvement to the ankle wound compared to the foot wound. He denies any redness or drainage. Denies trauma. Denies constitutional symptoms. No other pedal complaints at this time. Objective Data Objective Data Vital Signs: Vital Signs Temp Pulse Resp BP O2 Del Method O2 Flow Rate 97.2 F L 77 20 H 128/66 H Nasal Cannula 4 12/14/24 14:24 12/14/24 14:24 12/14/24 14:24 12/14/24 14:24 12/14/24 14:24 12/07/24 15:18 Oxygen Flow Rate (L/min) 4 Oxygen Delivery Method Nasal Cannula Physical Exam Narrative Vascular: DP and PT pulses are faintly palpable. CFT is brisk. No erythema to the left ankle or first metatarsophalangeal joint left foot. No sign of proximal streaking. Neurological: Light touch intact. Patient does despond painful stimuli. Dermatological: Full-thickness wound to left medial ankle measuring 0.9 x 1.1 x 0.3 cm. Wound base is granular nature. Evidence of full-thickness wound to the dorsal aspect of first metatarsophalangeal joint to left lower extremity. Full-thickness wound measures 0.9 x 1.6 x 0.2 cm. Evidence of exposed fascia and subcutaneous tissue. Wound is stable with no sign of infection. Excisional debridement down to and including subcutaneous tissue, fascia and muscle to the left medial ankle full-thickness wound with a number 3 mm dermal curette and without incident. Predebridement measurement was 0.8 x 0.9 x 0.2 cm. Postdebridement measurement is 0.9 x 1.1 x 0.3 cm. Excisional debridement down to including subcutaneous tissue, fascia and muscle and bone to left lower extremity first metatarsal phalangeal joint dorsally with a 3 mm dermal curette done without incident. Predebridement measurement was 0.8 x 1.5 x 0.1 cm. Postdebridement measurement is 0.9 x 1.6 x 0.2 cm. Musculoskeletal: No pain on palpation to the left ankle and 1st MPJ full thickness wounds. No pain with calf pressure. Debridement Note Debridement Note Debridement Free Text: Excisional debridement down to and including subcutaneous tissue, fascia and muscle to the left medial ankle full-thickness wound with a number 3 mm dermal curette and without incident. Predebridement measurement was 0.8 x 0.9 x 0.2 cm. Postdebridement measurement is 0.9 x 1.1 x 0.3 cm. Excisional debridement down to including subcutaneous tissue, fascia and muscle and bone to left lower extremity first metatarsal phalangeal joint dorsally with a 3 mm dermal curette done without incident. Predebridement measurement was 0.8 x 1.5 x 0.1 cm. Postdebridement measurement is 0.9 x 1.6 x 0.2 cm. Post-Debridement Measurements and Additional Note: Post-Debridement Measurements/Treatment WC - Nurse 1 - General Ulcer Assessment Start: 11/30/24 14:54 Freq: Status: Active Protocol: FABIAN.LOWEXT Activity Type Activity Date Activity User E-sign Co-sign Detail Recorded Client Recorded Date Recorded By Document 11/30/24 14:54 [id number] 11/30/24 15:02 GM Document 12/07/24 15:18 RB [id number] 12/07/24 15:20 RB Document 12/14/24 14:24 GM [id number] 12/14/24 14:27 11/30/24 12/07/24 12/14/24 14:54 15:18 14:24 - Today's Visit Information Type of service Follow-up Visit Follow-up Visit Follow-up Visit (Physician/DIRECTOR OF CONSERVATION (Physician/DIRECTOR OF CONSERVATION (Physician/DIRECTOR OF CONSERVATION ) ) ) Arrival Mode Wheelchair Ambulatory Wheelchair Transfer Assistance None None None Patient Identification Verified (Name & Yes Yes Yes ) Patient Requires Transmission-Based No Precautions Vital Signs Temperature (97.8 F-99.1 F) 97.0 F L 97 F L 97.2 F L Temperature Source Temporal Temporal Temporal Pulse Rate (60-100) 72 56 L 77 Pulse Location Monitor Monitor Monitor Respiratory Rate (12-18) 24 H 20 H 20 H Respiratory rate source Observation Observation Ausculation Oxygen Delivery Method Nasal Cannula Nasal Cannula Nasal Cannula O2 L/MIN (L/min) 4 4 Blood Pressure (90/60-120/80) 124/69 H 145/74 H 128/66 H Blood Pressure Mean (mm Hg) 87 97 86 Source Monitor Monitor Position Sitting Sitting Blood Pressure Location Right Arm Right Arm History Since Last Visit- (Skip if this is Patient's initial visit) Have you changed medications since your No No No last visit? Any new allergies or adverse reactions No No No Had a fall/change in ADL's that may No No No increase risk of falls Signs or symptoms of abuse and/or No No No neglect since last visit Have you been in the hospital since your No No No last visit? Has dressing in place as prescribed Yes Yes Yes Has compression in place as prescribed No N/A Yes Has offloadiing in place as prescribed N/A N/A N/A Experienced any changes in pain level or No No No management Left Footwear Regular Shoe Regular Shoe Right Footwear Regular Shoe Regular Shoe Pain Scale: 0-10 Numeric Is Patient Pain Free? Yes Yes Yes - Nurse 1 - General Ulcer Measurement Start: 11/30/24 14:54 Freq: Status: Active Protocol: Activity Type Activity Date Activity User E-sign Co-sign Detail Recorded Client Recorded Date Recorded By Document 11/30/24 14:54 [id number] 11/30/24 15:02 GM Document 12/07/24 15:18 RB [id number] 12/07/24 15:20 RB Document 12/14/24 14:24 [id number] 12/14/24 14:27 11/30/24 12/07/24 12/14/24 14:54 15:18 14:24 Wound Center Nurse 1 3-left foot -Combined with other wound No -Combined with (Name of Wound-Exactly .9 as it is documented) -Current Size (cm) - Length 1.0 1.4 0.9 -Current Size (cm) - Width 1.5 0.2 1.7 -Current Size (cm) - Depth 0.2 0.3 -Total Square Cm 1.50 0.28 1.53 -Date of Last Picture (Recall this 11/30/24 12/14/24 field) -Photo Taken Yes Yes Yes -Epithelialization Small 1-33% None Present -Tunneling No No No -Undermining/Tunneling No No No -Circular Undermining No No No -Exudate Amt Small Medium Small -Exudate Type Yellow/Green Serosanguineous Yellow/Green -Wound Margin Distinct, Thickened & Distinct, Outline Rolled Under Outline Attached Attached -Granulation Amt Medium (34-66%) Medium (34-66%) Large (67-100%) -Granulation Quality [place] Red -Slough/Fibrin Yes Yes No -Necrosis Amt Small (1-33%) Medium (34-66%) None Present (0 %) -Necrotic Tissue Type Adherent Slough Adherent Slough -Structure Exposed N/A -Texture (Bell-wound Skin Appearance) No Abnormality, Assessed Assessed Assessed -Moisture (Bell-wound Skin Appearance) No Abnormality, Assessed Assessed Assessed -Color (Bell-wound Skin Appearance) No Abnormality, Assessed, Assessed Assessed Erythema -Temperature (Bell-wound Skin No Abnormality No Abnormality No Abnormality Appearance) (Pt Warm) (Pt Warm) (Pt Warm) -Tenderness on Palpation (Bell-wound No No No Skin Appearance) -Ulcer Cleansing Rinsed/ Wound Cleanser Rinsed/ Irrigated with Irrigated with Saline Saline -Foul Odor after Cleansing No No No -Anesthetic Used 5% Lidocaine 5% Lidocaine 5% Lidocaine Gel Gel Gel #1- L MEDIAL ANKLE -Combined with other wound No -Current Size (cm) - Length 0.8 0.9 0.9 -Current Size (cm) - Width 0.9 1.1 1.1 -Current Size (cm) - Depth 0.4 0.3 0.5 -Total Square Cm 0.72 0.99 0.99 -Date of Last Picture (Recall this 11/30/24 12/14/24 field) -Photo Taken Yes Yes Yes -Epithelialization Small 1-33% None Present -Tunneling No No No -Undermining/Tunneling No No No -Circular Undermining No No No -Exudate Amt Small Medium Medium -Exudate Type Yellow/Green Serosanguineous Yellow/Green -Wound Margin Distinct, Thickened & Distinct, Outline Rolled Under Outline Attached Attached -Granulation Amt Small (1-33%) Medium (34-66%) Small (1-33%) -Granulation Quality [place] -Slough/Fibrin No Yes Yes -Necrosis Amt None Present (0 Medium (34-66%) Medium (34-66%) %) -Necrotic Tissue Type Adherent Slough Adherent Slough -Structure Exposed N/A -Texture (Bell-wound Skin Appearance) Assessed Assessed Assessed -Moisture (Bell-wound Skin Appearance) Assessed Assessed Assessed -Color (Bell-wound Skin Appearance) Assessed Assessed, Assessed Erythema -Temperature (Bell-wound Skin No Abnormality No Abnormality No Abnormality Appearance) (Pt Warm) (Pt Warm) (Pt Warm) -Tenderness on Palpation (Bell-wound No No No Skin Appearance) -Ulcer Cleansing Rinsed/ Wound Cleanser Rinsed/ Irrigated with Irrigated with Saline Saline -Foul Odor after Cleansing No No No -Anesthetic Used 5% Lidocaine 5% Lidocaine 5% Lidocaine Gel Gel Gel WC - Nurse 2 - General Ulcer CM Notes Start: 11/30/24 14:54 Freq: Status: Active Protocol: Activity Type Activity Date Activity User E-sign Co-sign Detail Recorded Client Recorded Date Recorded By Document 11/30/24 15:10 SONNY [id number] 11/30/24 15:14 Document 12/07/24 15:39 JF [id number] 12/07/24 15:42 JF Document 12/14/24 14:43 [id number] 12/14/24 14:49 11/30/24 12/07/24 12/14/24 15:10 15:39 14:43 Wound Center Nurse 2 3-left foot -Time 15:12 15:39 14:44 -Correct Patient Yes Yes Yes -Correct Side, Site, Position Yes Yes Yes -Correct Procedure Yes Yes Yes -Procedure Performed Yes Yes Yes -Type of Procedure Debridement Debridement Debridement -Clinical Debridement Subcutaneous Muscle / Fascia Bone -Tissue Removed Subcutaneous Muscle Non-viable tissue -Post Debridement (cm) - Length 0.7 0.9 -Post Debridement (cm) - Width 1.5 1.6 -Post Debridement (cm) - Depth 0.3 0.2 -Total Square (Post) (cm) 1.05 1.44 -Area of Debridement (cm) - Length 0.7 0.9 -Area of Debridement (cm) - Width 1.5 1.6 -Total Square (Area) (cm) 1.05 1.44 -Tunneling No No No -Undermining/Tunneling No No No -Circular Undermining No No No -Wound/Ulcer Outcome Not Healed Not Healed Not Healed -Ulcer Cleansing Rinsed/ Rinsed/ Rinsed/ Irrigated with Irrigated with Irrigated with Saline Saline Saline -Foul Odor after Cleansing No No No -Bioengineered Tissue No No No -Bleeding Controlled with Pressure Pressure Pressure -Treatment Response Procedure Procedure Procedure Tolerated Well Tolerated Well Tolerated Well -Offloading No No No -Debridement - Subq, 1st 20sq cm Yes -Debridement - Muscle / Fascia, 1st Yes 20sq cm -Debridement - Bone, 1st 20sq cm Yes #1- L MEDIAL ANKLE -Time 15:13 15:40 14:44 -Correct Patient Yes Yes Yes -Correct Side, Site, Position Yes Yes Yes -Correct Procedure Yes Yes Yes -Procedure Performed Yes Yes Yes -Type of Procedure Debridement Debridement Debridement -Clinical Debridement Muscle / Fascia Muscle / Fascia Muscle / Fascia -Tissue Removed Muscle Muscle Muscle -Post Debridement (cm) - Length 0.8 0.9 0.9 -Post Debridement (cm) - Width 1.0 1.0 1.1 -Post Debridement (cm) - Depth 0.3 0.3 0.3 -Total Square (Post) (cm) 0.80 0.90 0.99 -Area of Debridement (cm) - Length 0.8 0.9 0.9 -Area of Debridement (cm) - Width 1.0 1.0 1.1 -Total Square (Area) (cm) 0.80 0.90 0.99 -Tunneling No No No -Undermining/Tunneling No No No -Circular Undermining No No No -Wound/Ulcer Outcome Not Healed Not Healed Not Healed -Ulcer Cleansing Rinsed/ Rinsed/ Rinsed/ Irrigated with Irrigated with Irrigated with Saline Saline Saline -Foul Odor after Cleansing No No No -Bioengineered Tissue No No No -Bleeding Controlled with Pressure Pressure Pressure -Treatment Response Procedure Procedure Procedure Tolerated Well Tolerated Well Tolerated Well -Offloading No No No -Debridement - Muscle / Fascia, 1st Yes No Yes 20sq cm Pain Scale: 0-10 Numeric Is Patient Pain Free? Yes Yes Yes WC - Nurse 3 - General Ulcer D/C NN Start: 11/30/24 14:54 Freq: Status: Active Protocol: Activity Type Activity Date Activity User E-sign Co-sign Detail Recorded Client Recorded Date Recorded By Document 11/30/24 15:24 RB [id number] 11/30/24 15:26 RB Document 12/07/24 15:53 [id number] 12/07/24 15:54 Document 12/14/24 15:13 RB [id number] 12/14/24 15:14 RB 11/30/24 12/07/24 12/14/24 15:24 15:53 15:13 Wound Care Center Nurse 3 3-left foot -Ulcer Cleansing Not Cleansed -Primary Dressing Applied AMD Dressing 4x4 -Other Dressing DAKINS amd foam soaked DAKINS MOISTENED GAUZE in dakins MOISTENED amd PAD -Primary Dressing Covered/Secured with Dry Gauze & Dry Gauze & Dry Gauze & Roll Gauze, Roll Gauze Roll Gauze, Secured with Secured with Tape Tape -AMD Dressing 4x4 1 #1- L MEDIAL ANKLE -Ulcer Cleansing Not Cleansed -Foul Odor after Cleansing No -Primary Dressing Applied AMD Dressing 4x4 -Other Dressing DAKINS amd foam soaked DAKINS MOISTENED GAUZE in dakins MOISTENED amd -Primary Dressing Covered/Secured with Dry Gauze & Dry Gauze Roll Gauze, Secured with Tape -AMD Dressing 4x4 1 LLE -Tubular Bandage Single Layer Single Layer Single Layer -Size of Tubigrip Used Size E Size E Size E -Size E ($) 1 1 1 Treatment Response Procedure Procedure Tolerated Well Tolerated Well Pain Scale: 0-10 Numeric Is Patient Pain Free? 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 All findings were discussed with the patient. All questions were answered to the patient's satisfaction. Excisional debridement down to and including subcutaneous tissue, fascia and muscle to the left medial ankle full-thickness wound with a number 3 mm dermal curette and without incident. Predebridement measurement was 0.8 x 0.9 x 0.2 cm. Postdebridement measurement is 0.9 x 1.1 x 0.3 cm. Excisional debridement down to including subcutaneous tissue, fascia and muscle and bone to left lower extremity first metatarsal phalangeal joint dorsally with a 3 mm dermal curette done without incident. Predebridement measurement was 0.8 x 1.5 x 0.1 cm. Postdebridement measurement is 0.9 x 1.6 x 0.2 cm. The left lower extremities are cleaned and patted dry. AMB pad soaked with Dakin's were applied to both full-thickness wound without incident. They were dressed with dry sterile dressing and a light compression wrap was donned. Patient will do daily dressing changes as above. I educated the patient on signs symptoms of infection. Patient will follow-up with Dr. Allen on 12/20. The patient will follow-up with Dr. Mazariegos in 1 week. (2) Other specified peripheral vascular diseases: CODE(S): I73.89 - Other specified peripheral vascular diseases (3) Non-pressure chronic ulcer of other part of left foot with necrosis of bone: CODE(S): L97.524 - Non-pressure chronic ulcer of other part of left foot with necrosis of bone
[2024-12-21 11:49] VITALS: BP 110/56; PULSE 64; RESP 18; TEMP 37.2; O2SAT 96
--- NOTE | 2024-12-22 09:20 | WC ---
PHOTO: LEFT FOOT 12/21/24
--- NOTE | 2024-12-22 09:20 | WC ---
PHOTO: LEFT MEDIAL ANKLE 12/21/24
--- NOTE | 2024-12-24 15:47 | PCM.WC.PN ---
History of Present Illness Date of Service: 12/21/24 Chief Complaint: Left medial ankle and left foot ulcers History of Wound: This is an 84-year-old male with a left medial ankle ulcer that had been seeing Union Representative, Dr. Drew, at the [facility]. The patient has a significant history for COPD, and is on home O2. He also has a history of Prostate CA, Squamous carcinoma of left lung, HTN, anxiety and depression, AAA without rupture, CAD, coronary artery stent placement (multiple), CABG x 3, former smoker, PAD, PBH, and pulmonary embolism-on anticoagulants, and hyperlipidemia. He has had arterial studies in the past and had some vascular procedures (by Dr. Freeman) to his left leg. He denies a history of diabetes. His providers are all with [facility]. He has had this left medial ankle ulcer for more than 3 months. He had been placing Santyl covered with [facility] [employer]. There had not been much improvement to this area, and he was referred to see us by [facility], and that Dr. Drew also suggested he get a second opinion. The patient is seen at this time as a courtesy to his regular Wound Center provider, Dr. Rasta Mazariegos, who is unavailable this week. Progress of Wound: Stable full-thickness wound to the left ankle and left foot. Subjective Subjective Patient is a 84-year-old male present to clinic today follow-up evaluation of left ankle full-thickness wound and left foot wound. Patient did meet with vascular surgery physician medical claims assistant and states that after reviewing the results there was not much vascular surgery can do at this time. He is presenting today for further evaluation of full-thickness wound that is slowly improving. He denies trauma. Denies constitutional symptoms. No other pedal complaints at this time. Objective Data Objective Data Vital Signs: Vital Signs Temp Pulse Resp BP Pulse Ox O2 Del Method O2 Flow Rate 99 F 64 18 110/56 L 96 Nasal Cannula 4 12/21/24 11:49 12/21/24 11:49 12/21/24 11:49 12/21/24 11:49 12/21/24 11:49 12/21/24 11:49 12/21/24 11:49 Oxygen Flow Rate (L/min) 4 Oxygen Delivery Method Nasal Cannula Physical Exam Narrative Vascular: DP and PT pulses are faintly palpable. CFT is brisk. No erythema to the left ankle or first metatarsophalangeal joint left foot. No sign of proximal streaking. Neurological: Light touch intact. Patient does despond painful stimuli. Dermatological: Full-thickness wound to left medial ankle measuring 0.9 x 0.9 x 0.3 cm. Wound base is granular nature. Evidence of full-thickness wound to the dorsal aspect of first metatarsophalangeal joint to left lower extremity. Full-thickness wound measures 0.9 x 1.6 x 0.2 cm. Evidence of exposed fascia and subcutaneous tissue. Wound is stable with no sign of infection. Excisional debridement down to and including subcutaneous tissue, fascia and muscle to the left medial ankle full-thickness wound with a number 3 mm dermal curette and without incident. Predebridement measurement was 0.8 x 0.8 x 0.2 cm. Postdebridement measurement is 0.9 x 0.9 x 0.3 cm. Excisional debridement down to including subcutaneous tissue, fascia and muscle to left lower extremity first metatarsal phalangeal joint dorsally with a 3 mm dermal curette done without incident. Predebridement measurement was 0.7 x 1.5 x 0.1 cm. Postdebridement measurement is 0.8 x 1.6 x 0.2 cm. Musculoskeletal: No pain on palpation to the left ankle and 1st MPJ full thickness wounds. No pain with calf pressure Debridement Note Debridement Note Debridement Free Text: Excisional debridement down to and including subcutaneous tissue, fascia and muscle to the left medial ankle full-thickness wound with a number 3 mm dermal curette and without incident. Predebridement measurement was 0.8 x 0.8 x 0.2 cm. Postdebridement measurement is 0.9 x 0.9 x 0.3 cm. Excisional debridement down to including subcutaneous tissue, fascia and muscle to left lower extremity first metatarsal phalangeal joint dorsally with a 3 mm dermal curette done without incident. Predebridement measurement was 0.7 x 1.5 x 0.1 cm. Postdebridement measurement is 0.8 x 1.6 x 0.2 cm. Post-Debridement Measurements and Additional Note: Post-Debridement Measurements/Treatment WC - Nurse 1 - General Ulcer Assessment Start: 11/30/24 14:54 Freq: Status: Active Protocol: FABIAN.LOWEXT Activity Type Activity Date Activity User E-sign Co-sign Detail Recorded Client Recorded Date Recorded By Document 11/30/24 14:54 GM [id number] 11/30/24 15:02 GM Document 12/07/24 15:18 RB [id number] 12/07/24 15:20 RB Document 12/14/24 14:24 GM [id number] 12/14/24 14:27 GM Document 12/21/24 11:49 MT [id number] 12/21/24 12:00 MT 11/30/24 12/07/24 12/14/24 14:54 15:18 14:24 - Today's Visit Information Type of service Follow-up Visit Follow-up Visit Follow-up Visit (Physician/FURNITURE REPAIR TECHNICIAN (Physician/FURNITURE REPAIR TECHNICIAN (Physician/FURNITURE REPAIR TECHNICIAN ) ) ) Arrival Mode Wheelchair Ambulatory Wheelchair Transfer Assistance None None None Accompanied by Patient Identification Verified (Name & Yes Yes Yes ) Patient Requires Transmission-Based No Precautions Safety Precautions Vital Signs Temperature (97.8 F-99.1 F) 97.0 F L 97 F L 97.2 F L Temperature Source Temporal Temporal Temporal Pulse Rate (60-100) 72 56 L 77 Pulse Location Monitor Monitor Monitor Respiratory Rate (12-18) 24 H 20 H 20 H Respiratory rate source Observation Observation Ausculation Pulse Oximetry Oxygen Delivery Method Nasal Cannula Nasal Cannula Nasal Cannula O2 L/MIN (L/min) 4 4 Blood Pressure (90/60-120/80) 124/69 H 145/74 H 128/66 H Blood Pressure Mean (mm Hg) 87 97 86 Source Monitor Monitor Position Sitting Sitting Blood Pressure Location Right Arm Right Arm History Since Last Visit- (Skip if this is Patient's initial visit) Have you changed medications since your No No No last visit? Any new allergies or adverse reactions No No No Had a fall/change in ADL's that may No No No increase risk of falls Signs or symptoms of abuse and/or No No No neglect since last visit Have you been in the hospital since your No No No last visit? Has dressing in place as prescribed Yes Yes Yes Has compression in place as prescribed No N/A Yes Has offloadiing in place as prescribed N/A N/A N/A Experienced any changes in pain level or No No No management Left Footwear Regular Shoe Regular Shoe Right Footwear Regular Shoe Regular Shoe Pain Scale: 0-10 Numeric Is Patient Pain Free? Yes Yes Yes 12/21/24 11:49 WC - Today's Visit Information Type of service Follow-up Visit (Physician/FURNITURE REPAIR TECHNICIAN ) Arrival Mode Ambulatory Transfer Assistance Accompanied by Patient Identification Verified (Name & Yes ) Patient Requires Transmission-Based Precautions Safety Precautions Fall Prevention Vital Signs Temperature (97.8 F-99.1 F) 99 F Temperature Source Temporal Pulse Rate (60-100) 64 Pulse Location Monitor Respiratory Rate (12-18) 18 Respiratory rate source Monitor Pulse Oximetry 96 Oxygen Delivery Method Nasal Cannula O2 L/MIN (L/min) 4 Blood Pressure (90/60-120/80) 110/56 L Blood Pressure Mean (mm Hg) 74 Source Monitor Position Semi-Fowlers Blood Pressure Location Left Arm History Since Last Visit- (Skip if this is Patient's initial visit) Have you changed medications since your last visit? Any new allergies or adverse reactions Had a fall/change in ADL's that may increase risk of falls Signs or symptoms of abuse and/or neglect since last visit Have you been in the hospital since your last visit? Has dressing in place as prescribed Yes Has compression in place as prescribed Yes Has offloadiing in place as prescribed Yes Experienced any changes in pain level or Yes management Left Footwear Regular Shoe Right Footwear Regular Shoe Pain Scale: 0-10 Numeric Is Patient Pain Free? Yes - Nurse 1 - General Ulcer Measurement Start: 11/30/24 14:54 Freq: Status: Active Protocol: Activity Type Activity Date Activity User E-sign Co-sign Detail Recorded Client Recorded Date Recorded By Document 11/30/24 14:54 [id number] 11/30/24 15:02 Document 12/07/24 15:18 RB [id number] 12/07/24 15:20 RB Document 12/14/24 14:24 GM [id number] 12/14/24 14:27 Document 12/21/24 11:49 OK [id number] 12/21/24 12:00 OK 11/30/24 12/07/24 12/14/24 14:54 15:18 14:24 Wound Center Nurse 1 3-left foot -Combined with other wound No -Combined with (Name of Wound-Exactly .9 as it is documented) -Current Size (cm) - Length 1.0 1.4 0.9 -Current Size (cm) - Width 1.5 0.2 1.7 -Current Size (cm) - Depth 0.2 0.3 -Total Square Cm 1.50 0.28 1.53 -Date of Last Picture (Recall this 11/30/24 12/14/24 field) -Photo Taken Yes Yes Yes -Epithelialization Small 1-33% None Present -Tunneling No No No -Undermining/Tunneling No No No -Circular Undermining No No No -Exudate Amt Small Medium Small -Exudate Type Yellow/Green Serosanguineous Yellow/Green -Wound Margin Distinct, Thickened & Distinct, Outline Rolled Under Outline Attached Attached -Granulation Amt Medium (34-66%) Medium (34-66%) Large (67-100%) -Granulation Quality [place] Red -Slough/Fibrin Yes Yes No -Necrosis Amt Small (1-33%) Medium (34-66%) None Present (0 %) -Necrotic Tissue Type Adherent Slough Adherent Slough -Structure Exposed N/A -Texture (Bell-wound Skin Appearance) No Abnormality, Assessed Assessed Assessed -Moisture (Bell-wound Skin Appearance) No Abnormality, Assessed Assessed Assessed -Color (Bell-wound Skin Appearance) No Abnormality, Assessed, Assessed Assessed Erythema -Temperature (Bell-wound Skin No Abnormality No Abnormality No Abnormality Appearance) (Pt Warm) (Pt Warm) (Pt Warm) -Tenderness on Palpation (Bell-wound No No No Skin Appearance) -Ulcer Cleansing Rinsed/ Wound Cleanser Rinsed/ Irrigated with Irrigated with Saline Saline -Foul Odor after Cleansing No No No -Anesthetic Used 5% Lidocaine 5% Lidocaine 5% Lidocaine Gel Gel Gel #1- L MEDIAL ANKLE -Combined with other wound No -Current Size (cm) - Length 0.8 0.9 0.9 -Current Size (cm) - Width 0.9 1.1 1.1 -Current Size (cm) - Depth 0.4 0.3 0.5 -Total Square Cm 0.72 0.99 0.99 -Date of Last Picture (Recall this 11/30/24 12/14/24 field) -Photo Taken Yes Yes Yes -Epithelialization Small 1-33% None Present -Tunneling No No No -Undermining/Tunneling No No No -Circular Undermining No No No -Exudate Amt Small Medium Medium -Exudate Type Yellow/Green Serosanguineous Yellow/Green -Wound Margin Distinct, Thickened & Distinct, Outline Rolled Under Outline Attached Attached -Granulation Amt Small (1-33%) Medium (34-66%) Small (1-33%) -Granulation Quality [place] -Slough/Fibrin No Yes Yes -Necrosis Amt None Present (0 Medium (34-66%) Medium (34-66%) %) -Necrotic Tissue Type Adherent Slough Adherent Slough -Structure Exposed N/A -Texture (Bell-wound Skin Appearance) Assessed Assessed Assessed -Moisture (Bell-wound Skin Appearance) Assessed Assessed Assessed -Color (Bell-wound Skin Appearance) Assessed Assessed, Assessed Erythema -Temperature (Bell-wound Skin No Abnormality No Abnormality No Abnormality Appearance) (Pt Warm) (Pt Warm) (Pt Warm) -Tenderness on Palpation (Bell-wound No No No Skin Appearance) -Ulcer Cleansing Rinsed/ Wound Cleanser Rinsed/ Irrigated with Irrigated with Saline Saline -Foul Odor after Cleansing No No No -Anesthetic Used 5% Lidocaine 5% Lidocaine 5% Lidocaine Gel Gel Gel Lower Limb Edema Present 12/21/24 11:49 Wound Center Nurse 1 3-left foot -Combined with other wound -Combined with (Name of Wound-Exactly as it is documented) -Current Size (cm) - Length 1.1 -Current Size (cm) - Width 1.9 -Current Size (cm) - Depth 0.1 -Total Square Cm 2.09 -Date of Last Picture (Recall this 12/21/24 field) -Photo Taken Yes -Epithelialization -Tunneling No -Undermining/Tunneling No -Circular Undermining No -Exudate Amt Small -Exudate Type Serosanguineous -Wound Margin Thickened & Rolled Under -Granulation Amt Large (67-100%) -Granulation Quality Pale,[place] -Slough/Fibrin -Necrosis Amt Small (1-33%) -Necrotic Tissue Type Adherent Slough -Structure Exposed -Texture (Bell-wound Skin Appearance) Assessed -Moisture (Bell-wound Skin Appearance) Assessed -Color (Bell-wound Skin Appearance) Assessed -Temperature (Bell-wound Skin No Abnormality Appearance) (Pt Warm) -Tenderness on Palpation (Bell-wound No Skin Appearance) -Ulcer Cleansing Soap and Water -Foul Odor after Cleansing No -Anesthetic Used 5% Lidocaine Gel #1- L MEDIAL ANKLE -Combined with other wound -Current Size (cm) - Length 1 -Current Size (cm) - Width 1.1 -Current Size (cm) - Depth 0.3 -Total Square Cm 1.1 -Date of Last Picture (Recall this 12/21/24 field) -Photo Taken Yes -Epithelialization -Tunneling No -Undermining/Tunneling No -Circular Undermining No -Exudate Amt Medium -Exudate Type Serosanguineous -Wound Margin Thickened & Rolled Under -Granulation Amt Large (67-100%) -Granulation Quality Pale,[place] -Slough/Fibrin -Necrosis Amt Small (1-33%) -Necrotic Tissue Type Adherent Slough -Structure Exposed -Texture (Bell-wound Skin Appearance) Assessed -Moisture (Bell-wound Skin Appearance) Assessed -Color (Bell-wound Skin Appearance) Assessed -Temperature (Bell-wound Skin No Abnormality Appearance) (Pt Warm) -Tenderness on Palpation (Bell-wound No Skin Appearance) -Ulcer Cleansing Soap and Water -Foul Odor after Cleansing No -Anesthetic Used 5% Lidocaine Gel Lower Limb Edema Present NA WC - Nurse 2 - General Ulcer CM Notes Start: 11/30/24 14:54 Freq: Status: Active Protocol: Activity Type Activity Date Activity User E-sign Co-sign Detail Recorded Client Recorded Date Recorded By Document 11/30/24 15:10 [id number] 11/30/24 15:14 Document 12/07/24 15:39 [id number] 12/07/24 15:42 Document 12/14/24 14:43 [id number] 12/14/24 14:49 Document 12/21/24 12:20 [id number] 12/21/24 12:22 11/30/24 12/07/24 12/14/24 15:10 15:39 14:43 Wound Center Nurse 2 3-left foot -Time 15:12 15:39 14:44 -Correct Patient Yes Yes Yes -Correct Side, Site, Position Yes Yes Yes -Correct Procedure Yes Yes Yes -Procedure Performed Yes Yes Yes -Type of Procedure Debridement Debridement Debridement -Clinical Debridement Subcutaneous Muscle / Fascia Bone -Tissue Removed Subcutaneous Muscle Non-viable tissue -Post Debridement (cm) - Length 0.7 0.9 -Post Debridement (cm) - Width 1.5 1.6 -Post Debridement (cm) - Depth 0.3 0.2 -Total Square (Post) (cm) 1.05 1.44 -Area of Debridement (cm) - Length 0.7 0.9 -Area of Debridement (cm) - Width 1.5 1.6 -Total Square (Area) (cm) 1.05 1.44 -Tunneling No No No -Undermining/Tunneling No No No -Circular Undermining No No No -Wound/Ulcer Outcome Not Healed Not Healed Not Healed -Ulcer Cleansing Rinsed/ Rinsed/ Rinsed/ Irrigated with Irrigated with Irrigated with Saline Saline Saline -Foul Odor after Cleansing No No No -Bioengineered Tissue No No No -Bleeding Controlled with Pressure Pressure Pressure -Treatment Response Procedure Procedure Procedure Tolerated Well Tolerated Well Tolerated Well -Offloading No No No -Debridement - Subq, 1st 20sq cm Yes -Debridement - Muscle / Fascia, 1st Yes 20sq cm -Debridement - Bone, 1st 20sq cm Yes #1- L MEDIAL ANKLE -Time 15:13 15:40 14:44 -Correct Patient Yes Yes Yes -Correct Side, Site, Position Yes Yes Yes -Correct Procedure Yes Yes Yes -Procedure Performed Yes Yes Yes -Type of Procedure Debridement Debridement Debridement -Clinical Debridement Muscle / Fascia Muscle / Fascia Muscle / Fascia -Tissue Removed Muscle Muscle Muscle -Post Debridement (cm) - Length 0.8 0.9 0.9 -Post Debridement (cm) - Width 1.0 1.0 1.1 -Post Debridement (cm) - Depth 0.3 0.3 0.3 -Total Square (Post) (cm) 0.80 0.90 0.99 -Area of Debridement (cm) - Length 0.8 0.9 0.9 -Area of Debridement (cm) - Width 1.0 1.0 1.1 -Total Square (Area) (cm) 0.80 0.90 0.99 -Tunneling No No No -Undermining/Tunneling No No No -Circular Undermining No No No -Wound/Ulcer Outcome Not Healed Not Healed Not Healed -Ulcer Cleansing Rinsed/ Rinsed/ Rinsed/ Irrigated with Irrigated with Irrigated with Saline Saline Saline -Foul Odor after Cleansing No No No -Bioengineered Tissue No No No -Bleeding Controlled with Pressure Pressure Pressure -Treatment Response Procedure Procedure Procedure Tolerated Well Tolerated Well Tolerated Well -Offloading No No No -Debridement - Muscle / Fascia, 1st Yes No Yes 20sq cm Pain Scale: 0-10 Numeric Is Patient Pain Free? Yes Yes Yes 12/21/24 12:20 Wound Center Nurse 2 3-left foot -Time 12:20 -Correct Patient Yes -Correct Side, Site, Position Yes -Correct Procedure Yes -Procedure Performed Yes -Type of Procedure Debridement -Clinical Debridement Muscle / Fascia -Tissue Removed Muscle -Post Debridement (cm) - Length 0.8 -Post Debridement (cm) - Width 1.6 -Post Debridement (cm) - Depth 0.2 -Total Square (Post) (cm) 1.28 -Area of Debridement (cm) - Length 0.8 -Area of Debridement (cm) - Width 1.6 -Total Square (Area) (cm) 1.28 -Tunneling No -Undermining/Tunneling No -Circular Undermining No -Wound/Ulcer Outcome Not Healed -Ulcer Cleansing Rinsed/ Irrigated with Saline -Foul Odor after Cleansing No -Bioengineered Tissue No -Bleeding Controlled with Pressure -Treatment Response Procedure Tolerated Well -Offloading No -Debridement - Subq, 1st 20sq cm -Debridement - Muscle / Fascia, 1st Yes 20sq cm -Debridement - Bone, 1st 20sq cm #1- L MEDIAL ANKLE -Time 12:21 -Correct Patient Yes -Correct Side, Site, Position Yes -Correct Procedure Yes -Procedure Performed Yes -Type of Procedure Debridement -Clinical Debridement Muscle / Fascia -Tissue Removed Muscle -Post Debridement (cm) - Length 0.9 -Post Debridement (cm) - Width 0.9 -Post Debridement (cm) - Depth 0.3 -Total Square (Post) (cm) 0.81 -Area of Debridement (cm) - Length 0.9 -Area of Debridement (cm) - Width 0.9 -Total Square (Area) (cm) 0.81 -Tunneling No -Undermining/Tunneling No -Circular Undermining No -Wound/Ulcer Outcome Not Healed -Ulcer Cleansing Rinsed/ Irrigated with Saline -Foul Odor after Cleansing No -Bioengineered Tissue No -Bleeding Controlled with Pressure -Treatment Response Procedure Tolerated Well -Offloading -Debridement - Muscle / Fascia, 1st No 20sq cm Pain Scale: 0-10 Numeric Is Patient Pain Free? Yes WC - Nurse 3 - General Ulcer D/C NN Start: 11/30/24 14:54 Freq: Status: Active Protocol: Activity Type Activity Date Activity User E-sign Co-sign Detail Recorded Client Recorded Date Recorded By Document 11/30/24 15:24 RB [id number] 11/30/24 15:26 RB Document 12/07/24 15:53 GM [id number] 12/07/24 15:54 GM Document 12/14/24 15:13 RB [id number] 12/14/24 15:14 RB Document 12/21/24 12:33 MT [id number] 12/21/24 12:35 MT 11/30/24 12/07/24 12/14/24 15:24 15:53 15:13 Wound Care Center Nurse 3 3-left foot -Ulcer Cleansing Not Cleansed -Primary Dressing Applied AMD Dressing 4x4 -Other Dressing DAKINS amd foam soaked DAKINS MOISTENED GAUZE in dakins MOISTENED amd PAD -Primary Dressing Covered/Secured with Dry Gauze & Dry Gauze & Dry Gauze & Roll Gauze, Roll Gauze Roll Gauze, Secured with Secured with Tape Tape -AMD Dressing 4x4 1 #1- L MEDIAL ANKLE -Ulcer Cleansing Not Cleansed -Foul Odor after Cleansing No -Primary Dressing Applied AMD Dressing 4x4 -Other Dressing DAKINS amd foam soaked DAKINS MOISTENED GAUZE in dakins MOISTENED amd -Primary Dressing Covered/Secured with Dry Gauze & Dry Gauze Roll Gauze, Secured with Tape -AMD Dressing 4x4 1 LLE -Tubular Bandage Single Layer Single Layer Single Layer -Size of Tubigrip Used Size E Size E Size E -Size E ($) 1 1 1 Treatment Response Procedure Procedure Tolerated Well Tolerated Well Pain Scale: 0-10 Numeric Is Patient Pain Free? Yes Yes Yes WC - Visit Discharge Discharge Condition Stable Stable Stable Ambulatory Status Ambulatory Wheelchair Wheelchair Transportation Private Auto Private Auto Private Auto Accompanied by Medication Reconcilliation completed & No No provided to patient/care provider Clinical Summary of Care Provided Yes Yes Notes: CHANA NASH ASSISTED WITH PT DRESSING 12/21/24 12:33 Wound Care Center Nurse 3 3-left foot -Ulcer Cleansing -Primary Dressing Applied AMD Dressing 4x4 -Other Dressing dakins -Primary Dressing Covered/Secured with Dry Gauze,Dry Gauze & Roll Gauze,Secured with Tape -AMD Dressing 4x4 1 #1- L MEDIAL ANKLE -Ulcer Cleansing -Foul Odor after Cleansing -Primary Dressing Applied -Other Dressing -Primary Dressing Covered/Secured with -AMD Dressing 4x4 LLE -Tubular Bandage Single Layer -Size of Tubigrip Used Size E -Size E ($) 1 Treatment Response Pain Scale: 0-10 Numeric Is Patient Pain Free? 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 All findings were discussed with the patient. All questions were answered to the patient's satisfaction. Excisional debridement down to and including subcutaneous tissue, fascia and muscle to the left medial ankle full-thickness wound with a number 3 mm dermal curette and without incident. Predebridement measurement was 0.8 x 0.8 x 0.2 cm. Postdebridement measurement is 0.9 x 0.9 x 0.3 cm. Excisional debridement down to including subcutaneous tissue, fascia and muscle to left lower extremity first metatarsal phalangeal joint dorsally with a 3 mm dermal curette done without incident. Predebridement measurement was 0.7 x 1.5 x 0.1 cm. Postdebridement measurement is 0.8 x 1.6 x 0.2 cm. The left lower extremities are cleaned and patted dry. AMB pad soaked with Dakin's were applied to both full-thickness wound without incident. They were dressed with dry sterile dressing and a light compression wrap was donned. Patient will do daily dressing changes as above. I educated the patient on signs symptoms of infection. Will send a new referral to [facility]. I did discuss with the patient that if the new referral is unable to help will recommend continued monthly follow-ups at the wound care center at [place] for evaluation. The patient and his were understanding of this. The patient will follow-up with Dr. Mazariegos in 1 week. (2) Other specified peripheral vascular diseases: CODE(S): I73.89 - Other specified peripheral vascular diseases (3) Non-pressure chronic ulcer of other part of left foot with necrosis of muscle: CODE(S): L97.523 - Non-pressure chronic ulcer of other part of left foot with necrosis of muscle
[2024-12-28 14:37] VITALS: BP 138/67; PULSE 72; RESP 16; TEMP 35.8
--- NOTE | 2024-12-29 13:19 | WC ---
PHOTO-LEFT ANKLE 12/28/24
--- NOTE | 2024-12-29 13:19 | WC ---
PHOTO-LEFT FOOT 12/28/24
--- NOTE | 2024-12-29 22:04 | PCM.WC.PN ---
History of Present Illness Date of Service: 12/28/24 Chief Complaint: Left medial ankle and left foot ulcers History of Wound: This is an 84-year-old male with a left medial ankle ulcer that had been seeing Metallurgical Or Materials Technician, Dr. Drew, at the [facility]. The patient has a significant history for COPD, and is on home O2. He also has a history of Prostate CA, Squamous carcinoma of left lung, HTN, anxiety and depression, AAA without rupture, CAD, coronary artery stent placement (multiple), CABG x 3, former smoker, PAD, PBH, and pulmonary embolism-on anticoagulants, and hyperlipidemia. He has had arterial studies in the past and had some vascular procedures (by Dr. Freeman) to his left leg. He denies a history of diabetes. His providers are all with [facility]. He has had this left medial ankle ulcer for more than 3 months. He had been placing Santyl covered with [place] [facility]. There had not been much improvement to this area, and he was referred to see us by [facility], and that Dr. Drew also suggested he get a second opinion. The patient is seen at this time as a courtesy to his regular Wound Center provider, Dr. Rasta Mazariegos, who is unavailable this week. Progress of Wound: Stable full-thickness wound to the left ankle and left foot. Subjective Subjective Patient is a 84-year-old male present to clinic for follow-up evaluation of left ankle and foot full-thickness wounds. Been compliant with dressing change with Dakin solution daily as well as dry sterile dressing compression wrap. He will be following with vascular surgery at [facility] on 01/23/2025. Denies trauma. Denies constitutional symptoms. No other pedal plaints at this time. Objective Data Objective Data Vital Signs: Vital Signs Temp Pulse Resp BP Pulse Ox O2 Del Method O2 Flow Rate 96.5 F L 72 16 138/67 H 96 Nasal Cannula 4 12/28/24 14:37 12/28/24 14:37 12/28/24 14:37 12/28/24 14:37 12/21/24 11:49 12/21/24 11:49 12/21/24 11:49 Oxygen Flow Rate (L/min) 4 Oxygen Delivery Method Nasal Cannula Physical Exam Narrative Vascular: DP and PT pulses are faintly palpable. CFT is brisk. No erythema to the left ankle or first metatarsophalangeal joint left foot. No sign of proximal streaking. Neurological: Light touch intact. Patient does despond painful stimuli. Dermatological: Full-thickness wound to left medial ankle measuring 0.8 x 0.9 x 0.3 cm. Wound base is granular nature. Evidence of full-thickness wound to the dorsal aspect of first metatarsophalangeal joint to left lower extremity. Full-thickness wound measures 0.9 x 1.5 x 0.2 cm. Positive probe to bone. No sign of infection. Excisional debridement down to and including subcutaneous tissue, fascia and muscle to the left medial ankle full-thickness wound with a number 3 mm dermal curette and without incident. Predebridement measurement was 0.7 x 0.8 x 0.2 cm. Postdebridement measurement is 0.8 x 0.9 x 0.3 cm. Excisional debridement down to including subcutaneous tissue, fascia and muscle and bone to left lower extremity first metatarsal phalangeal joint dorsally with a 3 mm dermal curette done without incident. Predebridement measurement was 0.8 x 1.4 x 0.1 cm. Postdebridement measurement is 0.9 x 1.5 x 0.2 cm. Musculoskeletal: No pain on palpation to the left ankle and 1st MPJ full thickness wounds. No pain with calf pressure Debridement Note Debridement Note Debridement Free Text: Excisional debridement down to and including subcutaneous tissue, fascia and muscle to the left medial ankle full-thickness wound with a number 3 mm dermal curette and without incident. Predebridement measurement was 0.7 x 0.8 x 0.2 cm. Postdebridement measurement is 0.8 x 0.9 x 0.3 cm. Excisional debridement down to including subcutaneous tissue, fascia and muscle and bone to left lower extremity first metatarsal phalangeal joint dorsally with a 3 mm dermal curette done without incident. Predebridement measurement was 0.8 x 1.4 x 0.1 cm. Postdebridement measurement is 0.9 x 1.5 x 0.2 cm. Post-Debridement Measurements and Additional Note: Post-Debridement Measurements/Treatment FABIAN - Nurse 1 - General Ulcer Assessment Start: 11/30/24 14:54 Freq: Status: Active Protocol: LOWEXT Activity Type Activity Date Activity User E-sign Co-sign Detail Recorded Client Recorded Date Recorded By Document 11/30/24 14:54 GM [id number] 11/30/24 15:02 GM Document 12/07/24 15:18 RB [id number] 12/07/24 15:20 RB Document 12/14/24 14:24 GM [id number] 12/14/24 14:27 GM Document 12/21/24 11:49 MT [id number] 12/21/24 12:00 MT Document 12/28/24 14:37 JF [id number] 12/28/24 14:39 JF 11/30/24 12/07/24 12/14/24 14:54 15:18 14:24 - Today's Visit Information Type of service Follow-up Visit Follow-up Visit Follow-up Visit (Physician/SILVER RECOVERY OPERATOR (Physician/SILVER RECOVERY OPERATOR (Physician/SILVER RECOVERY OPERATOR ) ) ) Arrival Mode Wheelchair Ambulatory Wheelchair Transfer Assistance None None None Accompanied by Patient Identification Verified (Name & Yes Yes Yes ) Patient Requires Transmission-Based No Precautions Safety Precautions Vital Signs Temperature (97.8 F-99.1 F) 97.0 F L 97 F L 97.2 F L Temperature Source Temporal Temporal Temporal Pulse Rate (60-100) 72 56 L 77 Pulse Location Monitor Monitor Monitor Respiratory Rate (12-18) 24 H 20 H 20 H Respiratory rate source Observation Observation Ausculation Pulse Oximetry Oxygen Delivery Method Nasal Cannula Nasal Cannula Nasal Cannula O2 L/MIN (L/min) 4 4 Blood Pressure (90/60-120/80) 124/69 H 145/74 H 128/66 H Blood Pressure Mean (mm Hg) 87 97 86 Source Monitor Monitor Position Sitting Sitting Blood Pressure Location Right Arm Right Arm History Since Last Visit- (Skip if this is Patient's initial visit) Have you changed medications since your No No No last visit? Any new allergies or adverse reactions No No No Had a fall/change in ADL's that may No No No increase risk of falls Signs or symptoms of abuse and/or No No No neglect since last visit Have you been in the hospital since your No No No last visit? Has dressing in place as prescribed Yes Yes Yes Has compression in place as prescribed No N/A Yes Has offloadiing in place as prescribed N/A N/A N/A Experienced any changes in pain level or No No No management Left Footwear Regular Shoe Regular Shoe Right Footwear Regular Shoe Regular Shoe Pain Scale: 0-10 Numeric Is Patient Pain Free? Yes Yes Yes 12/21/24 12/28/24 11:49 14:37 - Today's Visit Information Type of service Follow-up Visit Follow-up Visit (Physician/SILVER RECOVERY OPERATOR (Physician/SILVER RECOVERY OPERATOR ) ) Arrival Mode Ambulatory Wheelchair Transfer Assistance Manual Accompanied by Patient Identification Verified (Name & Yes Yes ) Patient Requires Transmission-Based No Precautions Safety Precautions Fall Prevention Vital Signs Temperature (97.8 F-99.1 F) 99 F 96.5 F L Temperature Source Temporal Temporal Pulse Rate (60-100) 64 72 Pulse Location Monitor Monitor Respiratory Rate (12-18) 18 16 Respiratory rate source Monitor Observation Pulse Oximetry 96 Oxygen Delivery Method Nasal Cannula O2 L/MIN (L/min) 4 Blood Pressure (90/60-120/80) 110/56 L 138/67 H Blood Pressure Mean (mm Hg) 74 90 Source Monitor Monitor Position Semi-Fowlers Semi-Fowlers Blood Pressure Location Left Arm Right Arm History Since Last Visit- (Skip if this is Patient's initial visit) Have you changed medications since your Yes last visit? Any new allergies or adverse reactions No Had a fall/change in ADL's that may No increase risk of falls Signs or symptoms of abuse and/or No neglect since last visit Have you been in the hospital since your No last visit? Has dressing in place as prescribed Yes Yes Has compression in place as prescribed Yes N/A Has offloadiing in place as prescribed Yes Yes Experienced any changes in pain level or Yes No management Left Footwear Regular Shoe Regular Shoe Right Footwear Regular Shoe Regular Shoe Pain Scale: 0-10 Numeric Is Patient Pain Free? Yes Yes - Nurse 1 - General Ulcer Measurement Start: 11/30/24 14:54 Freq: Status: Active Protocol: Activity Type Activity Date Activity User E-sign Co-sign Detail Recorded Client Recorded Date Recorded By Document 11/30/24 14:54 [id number] 11/30/24 15:02 GM Document 12/07/24 15:18 RB [id number] 12/07/24 15:20 RB Document 12/14/24 14:24 GM [id number] 12/14/24 14:27 GM Document 12/21/24 11:49 MT [id number] 12/21/24 12:00 MT Document 12/28/24 14:37 JF [id number] 12/28/24 14:39 JF 11/30/24 12/07/24 12/14/24 14:54 15:18 14:24 Wound Center Nurse 1 3-left foot -Combined with other wound No -Combined with (Name of Wound-Exactly .9 as it is documented) -Current Size (cm) - Length 1.0 1.4 0.9 -Current Size (cm) - Width 1.5 0.2 1.7 -Current Size (cm) - Depth 0.2 0.3 -Total Square Cm 1.50 0.28 1.53 -Date of Last Picture (Recall this 11/30/24 12/14/24 field) -Photo Taken Yes Yes Yes -Epithelialization Small 1-33% None Present -Tunneling No No No -Undermining/Tunneling No No No -Circular Undermining No No No -Exudate Amt Small Medium Small -Exudate Type Yellow/Green Serosanguineous Yellow/Green -Wound Margin Distinct, Thickened & Distinct, Outline Rolled Under Outline Attached Attached -Granulation Amt Medium (34-66%) Medium (34-66%) Large (67-100%) -Granulation Quality [place] Red -Slough/Fibrin Yes Yes No -Necrosis Amt Small (1-33%) Medium (34-66%) None Present (0 %) -Necrotic Tissue Type Adherent Slough Adherent Slough -Structure Exposed N/A -Texture (Bell-wound Skin Appearance) No Abnormality, Assessed Assessed Assessed -Moisture (Bell-wound Skin Appearance) No Abnormality, Assessed Assessed Assessed -Color (Bell-wound Skin Appearance) No Abnormality, Assessed, Assessed Assessed Erythema -Temperature (Bell-wound Skin No Abnormality No Abnormality No Abnormality Appearance) (Pt Warm) (Pt Warm) (Pt Warm) -Tenderness on Palpation (Bell-wound No No No Skin Appearance) -Ulcer Cleansing Rinsed/ Wound Cleanser Rinsed/ Irrigated with Irrigated with Saline Saline -Foul Odor after Cleansing No No No -Anesthetic Used 5% Lidocaine 5% Lidocaine 5% Lidocaine Gel Gel Gel #1- L MEDIAL ANKLE -Combined with other wound No -Current Size (cm) - Length 0.8 0.9 0.9 -Current Size (cm) - Width 0.9 1.1 1.1 -Current Size (cm) - Depth 0.4 0.3 0.5 -Total Square Cm 0.72 0.99 0.99 -Date of Last Picture (Recall this 11/30/24 12/14/24 field) -Photo Taken Yes Yes Yes -Epithelialization Small 1-33% None Present -Tunneling No No No -Undermining/Tunneling No No No -Circular Undermining No No No -Exudate Amt Small Medium Medium -Exudate Type Yellow/Green Serosanguineous Yellow/Green -Wound Margin Distinct, Thickened & Distinct, Outline Rolled Under Outline Attached Attached -Granulation Amt Small (1-33%) Medium (34-66%) Small (1-33%) -Granulation Quality [place] -Slough/Fibrin No Yes Yes -Necrosis Amt None Present (0 Medium (34-66%) Medium (34-66%) %) -Necrotic Tissue Type Adherent Slough Adherent Slough -Structure Exposed N/A -Texture (Bell-wound Skin Appearance) Assessed Assessed Assessed -Moisture (Bell-wound Skin Appearance) Assessed Assessed Assessed -Color (Bell-wound Skin Appearance) Assessed Assessed, Assessed Erythema -Temperature (Bell-wound Skin No Abnormality No Abnormality No Abnormality Appearance) (Pt Warm) (Pt Warm) (Pt Warm) -Tenderness on Palpation (Bell-wound No No No Skin Appearance) -Ulcer Cleansing Rinsed/ Wound Cleanser Rinsed/ Irrigated with Irrigated with Saline Saline -Foul Odor after Cleansing No No No -Anesthetic Used 5% Lidocaine 5% Lidocaine 5% Lidocaine Gel Gel Gel Lower Limb Edema Present 12/21/24 12/28/24 11:49 14:37 Wound Center Nurse 1 3-left foot -Combined with other wound No -Combined with (Name of Wound-Exactly as it is documented) -Current Size (cm) - Length 1.1 0.9 -Current Size (cm) - Width 1.9 1.5 -Current Size (cm) - Depth 0.1 0.3 -Total Square Cm 2.09 1.35 -Date of Last Picture (Recall this 12/21/24 field) -Photo Taken Yes Yes -Epithelialization Small 1-33% -Tunneling No No -Undermining/Tunneling No No -Circular Undermining No No -Exudate Amt Small Small -Exudate Type Serosanguineous Serosanguineous -Wound Margin Thickened & Flat & Intact Rolled Under -Granulation Amt Large (67-100%) Medium (34-66%) -Granulation Quality Pale,[place] -Slough/Fibrin Yes -Necrosis Amt Small (1-33%) Small (1-33%) -Necrotic Tissue Type Adherent Slough Adherent Slough -Structure Exposed N/A -Texture (Bell-wound Skin Appearance) Assessed Assessed -Moisture (Bell-wound Skin Appearance) Assessed Assessed,Dry/ Scaly -Color (Bell-wound Skin Appearance) Assessed Assessed -Temperature (Bell-wound Skin No Abnormality No Abnormality Appearance) (Pt Warm) (Pt Warm) -Tenderness on Palpation (Bell-wound No No Skin Appearance) -Ulcer Cleansing Soap and Water Rinsed/ Irrigated with Saline -Foul Odor after Cleansing No No -Anesthetic Used 5% Lidocaine 5% Lidocaine Gel Gel #1- L MEDIAL ANKLE -Combined with other wound No -Current Size (cm) - Length 1 0.8 -Current Size (cm) - Width 1.1 1.0 -Current Size (cm) - Depth 0.3 0.3 -Total Square Cm 1.1 0.80 -Date of Last Picture (Recall this 12/21/24 field) -Photo Taken Yes Yes -Epithelialization Small 1-33% -Tunneling No No -Undermining/Tunneling No No -Circular Undermining No No -Exudate Amt Medium Small -Exudate Type Serosanguineous Serosanguineous -Wound Margin Thickened & Flat & Intact Rolled Under -Granulation Amt Large (67-100%) Medium (34-66%) -Granulation Quality Pale,[place] -Slough/Fibrin Yes -Necrosis Amt Small (1-33%) Small (1-33%) -Necrotic Tissue Type Adherent Slough Adherent Slough -Structure Exposed N/A -Texture (Bell-wound Skin Appearance) Assessed Assessed -Moisture (Bell-wound Skin Appearance) Assessed Assessed,Dry/ Scaly -Color (Bell-wound Skin Appearance) Assessed Assessed -Temperature (Bell-wound Skin No Abnormality No Abnormality Appearance) (Pt Warm) (Pt Warm) -Tenderness on Palpation (Bell-wound No No Skin Appearance) -Ulcer Cleansing Soap and Water Rinsed/ Irrigated with Saline -Foul Odor after Cleansing No No -Anesthetic Used 5% Lidocaine 5% Lidocaine Gel Gel Lower Limb Edema Present NA NA WC - Nurse 2 - General Ulcer CM Notes Start: 11/30/24 14:54 Freq: Status: Active Protocol: Activity Type Activity Date Activity User E-sign Co-sign Detail Recorded Client Recorded Date Recorded By Document 11/30/24 15:10 [id number] 11/30/24 15:14 Document 12/07/24 15:39 [id number] 12/07/24 15:42 Document 12/14/24 14:43 [id number] 12/14/24 14:49 Document 12/21/24 12:20 [id number] 12/21/24 12:22 Document 12/28/24 14:59 [id number] 12/28/24 15:05 11/30/24 12/07/24 12/14/24 15:10 15:39 14:43 Wound Center Nurse 2 3-left foot -Time 15:12 15:39 14:44 -Correct Patient Yes Yes Yes -Correct Side, Site, Position Yes Yes Yes -Correct Procedure Yes Yes Yes -Procedure Performed Yes Yes Yes -Type of Procedure Debridement Debridement Debridement -Clinical Debridement Subcutaneous Muscle / Fascia Bone -Tissue Removed Subcutaneous Muscle Non-viable tissue -Post Debridement (cm) - Length 0.7 0.9 -Post Debridement (cm) - Width 1.5 1.6 -Post Debridement (cm) - Depth 0.3 0.2 -Total Square (Post) (cm) 1.05 1.44 -Area of Debridement (cm) - Length 0.7 0.9 -Area of Debridement (cm) - Width 1.5 1.6 -Total Square (Area) (cm) 1.05 1.44 -Tunneling No No No -Undermining/Tunneling No No No -Circular Undermining No No No -Wound/Ulcer Outcome Not Healed Not Healed Not Healed -Ulcer Cleansing Rinsed/ Rinsed/ Rinsed/ Irrigated with Irrigated with Irrigated with Saline Saline Saline -Foul Odor after Cleansing No No No -Bioengineered Tissue No No No -Bleeding Controlled with Pressure Pressure Pressure -Treatment Response Procedure Procedure Procedure Tolerated Well Tolerated Well Tolerated Well -Offloading No No No -Debridement - Subq, 1st 20sq cm Yes -Debridement - Muscle / Fascia, 1st Yes 20sq cm -Debridement - Bone, 1st 20sq cm Yes #1- L MEDIAL ANKLE -Time 15:13 15:40 14:44 -Correct Patient Yes Yes Yes -Correct Side, Site, Position Yes Yes Yes -Correct Procedure Yes Yes Yes -Procedure Performed Yes Yes Yes -Type of Procedure Debridement Debridement Debridement -Clinical Debridement Muscle / Fascia Muscle / Fascia Muscle / Fascia -Tissue Removed Muscle Muscle Muscle -Post Debridement (cm) - Length 0.8 0.9 0.9 -Post Debridement (cm) - Width 1.0 1.0 1.1 -Post Debridement (cm) - Depth 0.3 0.3 0.3 -Total Square (Post) (cm) 0.80 0.90 0.99 -Area of Debridement (cm) - Length 0.8 0.9 0.9 -Area of Debridement (cm) - Width 1.0 1.0 1.1 -Total Square (Area) (cm) 0.80 0.90 0.99 -Tunneling No No No -Undermining/Tunneling No No No -Circular Undermining No No No -Wound/Ulcer Outcome Not Healed Not Healed Not Healed -Ulcer Cleansing Rinsed/ Rinsed/ Rinsed/ Irrigated with Irrigated with Irrigated with Saline Saline Saline -Foul Odor after Cleansing No No No -Bioengineered Tissue No No No -Bleeding Controlled with Pressure Pressure Pressure -Treatment Response Procedure Procedure Procedure Tolerated Well Tolerated Well Tolerated Well -Offloading No No No -Debridement - Muscle / Fascia, 1st Yes No Yes 20sq cm Pain Scale: 0-10 Numeric Is Patient Pain Free? Yes Yes Yes 12/21/24 12/28/24 12:20 14:59 Wound Center Nurse 2 3-left foot -Time 12:20 14:59 -Correct Patient Yes Yes -Correct Side, Site, Position Yes Yes -Correct Procedure Yes Yes -Procedure Performed Yes Yes -Type of Procedure Debridement Debridement -Clinical Debridement Muscle / Fascia Bone -Tissue Removed Muscle Non-viable tissue -Post Debridement (cm) - Length 0.8 0.9 -Post Debridement (cm) - Width 1.6 1.5 -Post Debridement (cm) - Depth 0.2 0.2 -Total Square (Post) (cm) 1.28 1.35 -Area of Debridement (cm) - Length 0.8 0.9 -Area of Debridement (cm) - Width 1.6 1.5 -Total Square (Area) (cm) 1.28 1.35 -Tunneling No No -Undermining/Tunneling No No -Circular Undermining No No -Wound/Ulcer Outcome Not Healed Not Healed -Ulcer Cleansing Rinsed/ Rinsed/ Irrigated with Irrigated with Saline Saline -Foul Odor after Cleansing No No -Bioengineered Tissue No No -Bleeding Controlled with Pressure Pressure -Treatment Response Procedure Procedure Tolerated Well Tolerated Well -Offloading No No -Debridement - Subq, 1st 20sq cm -Debridement - Muscle / Fascia, 1st Yes 20sq cm -Debridement - Bone, 1st 20sq cm Yes #1- L MEDIAL ANKLE -Time 12:21 15:00 -Correct Patient Yes Yes -Correct Side, Site, Position Yes Yes -Correct Procedure Yes Yes -Procedure Performed Yes Yes -Type of Procedure Debridement Debridement -Clinical Debridement Muscle / Fascia Muscle / Fascia -Tissue Removed Muscle Muscle -Post Debridement (cm) - Length 0.9 0.8 -Post Debridement (cm) - Width 0.9 0.9 -Post Debridement (cm) - Depth 0.3 0.3 -Total Square (Post) (cm) 0.81 0.72 -Area of Debridement (cm) - Length 0.9 0.8 -Area of Debridement (cm) - Width 0.9 0.9 -Total Square (Area) (cm) 0.81 0.72 -Tunneling No No -Undermining/Tunneling No No -Circular Undermining No No -Wound/Ulcer Outcome Not Healed Not Healed -Ulcer Cleansing Rinsed/ Rinsed/ Irrigated with Irrigated with Saline Saline -Foul Odor after Cleansing No No -Bioengineered Tissue No No -Bleeding Controlled with Pressure Pressure -Treatment Response Procedure Procedure Tolerated Well Tolerated Well -Offloading No -Debridement - Muscle / Fascia, 1st No Yes 20sq cm Pain Scale: 0-10 Numeric Is Patient Pain Free? Yes Yes - Nurse 3 - General Ulcer D/C NN Start: 11/30/24 14:54 Freq: Status: Active Protocol: Activity Type Activity Date Activity User E-sign Co-sign Detail Recorded Client Recorded Date Recorded By Document 11/30/24 15:24 RB [id number] 11/30/24 15:26 RB Document 12/07/24 15:53 GM [id number] 12/07/24 15:54 GM Document 12/14/24 15:13 RB [id number] 12/14/24 15:14 RB Document 12/21/24 12:33 MT [id number] 12/21/24 12:35 MT Document 12/28/24 15:12 RB [id number] 12/28/24 15:15 RB 11/30/24 12/07/24 12/14/24 15:24 15:53 15:13 Wound Care Center Nurse 3 3-left foot -Ulcer Cleansing Not Cleansed -Primary Dressing Applied AMD Dressing 4x4 -Other Dressing DAKINS amd foam soaked DAKINS MOISTENED GAUZE in dakins MOISTENED amd PAD -Primary Dressing Covered/Secured with Dry Gauze & Dry Gauze & Dry Gauze & Roll Gauze, Roll Gauze Roll Gauze, Secured with Secured with Tape Tape -AMD Dressing 4x4 1 #1- L MEDIAL ANKLE -Ulcer Cleansing Not Cleansed -Foul Odor after Cleansing No -Primary Dressing Applied AMD Dressing 4x4 -Other Dressing DAKINS amd foam soaked DAKINS MOISTENED GAUZE in dakins MOISTENED amd -Primary Dressing Covered/Secured with Dry Gauze & Dry Gauze Roll Gauze, Secured with Tape -AMD Dressing 4x4 1 LLE -Tubular Bandage Single Layer Single Layer Single Layer -Size of Tubigrip Used Size E Size E Size E -Size E ($) 1 1 1 -Stockings Treatment Response Procedure Procedure Tolerated Well Tolerated Well Pain Scale: 0-10 Numeric Is Patient Pain Free? Yes Yes Yes WC - Visit Discharge Discharge Condition Stable Stable Stable Ambulatory Status Ambulatory Wheelchair Wheelchair Transportation Private Auto Private Auto Private Auto Accompanied by Medication Reconcilliation completed & No No provided to patient/care provider Clinical Summary of Care Provided Yes Yes Notes: CHANA NASH ASSISTED WITH PT DRESSING 12/21/24 12/28/24 12:33 15:12 Wound Care Center Nurse 3 3-left foot -Ulcer Cleansing -Primary Dressing Applied AMD Dressing 4x4 -Other Dressing dakins -Primary Dressing Covered/Secured with Dry Gauze,Dry Dry Gauze, Gauze & Roll Secured with Gauze,Secured Tape with Tape -AMD Dressing 4x4 1 #1- L MEDIAL ANKLE -Ulcer Cleansing -Foul Odor after Cleansing -Primary Dressing Applied -Other Dressing -Primary Dressing Covered/Secured with Dry Gauze, Secured with Tape -AMD Dressing 4x4 LLE -Tubular Bandage Single Layer -Size of Tubigrip Used Size E -Size E ($) 1 -Stockings Yes: pt own stockings Treatment Response Procedure Tolerated Well Pain Scale: 0-10 Numeric Is Patient Pain Free? 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 All findings were discussed with the patient. All questions were answered to the patient's satisfaction. Excisional debridement down to and including subcutaneous tissue, fascia and muscle to the left medial ankle full-thickness wound with a number 3 mm dermal curette and without incident. Predebridement measurement was 0.7 x 0.8 x 0.2 cm. Postdebridement measurement is 0.8 x 0.9 x 0.3 cm. Excisional debridement down to including subcutaneous tissue, fascia and muscle and bone to left lower extremity first metatarsal phalangeal joint dorsally with a 3 mm dermal curette done without incident. Predebridement measurement was 0.8 x 1.4 x 0.1 cm. Postdebridement measurement is 0.9 x 1.5 x 0.2 cm. The left lower extremities are cleaned and patted dry. AMB pad soaked with Dakin's were applied to both full-thickness wound without incident. They were dressed with dry sterile dressing and a light compression wrap was donned. Patient will do daily dressing changes as above. Patient will be following up with [facility] vascular department on 01/23/2025. The patient will follow-up with Dr. Mazariegos in 2 week. (2) Other specified peripheral vascular diseases: CODE(S): I73.89 - Other specified peripheral vascular diseases (3) Non-pressure chronic ulcer of other part of left foot with bone involvement without evidence of necrosis: CODE(S): L97.526 - Non-pressure chronic ulcer of other part of left foot with bone involvement without evidence of necrosis
== END 2024-12-30 23:59 | disposition home or self-care (01) ==
LOC: WC 14:30
PROVIDERS: PCP Family Medicine; Referring Provider Podiatrist Foot & Ankle Surgery; Visit Provider Podiatrist Foot & Ankle Surgery
DX: L97.325 Non-pressure chronic ulcer of left ankle with muscle involvement without evidence of necrosis (principal); L97.526 Non-pressure chronic ulcer of other part of left foot with bone involvement without evidence of necrosis; J44.9 Chronic obstructive pulmonary disease, unspecified; I25.10 Atherosclerotic heart disease of native coronary artery without angina pectoris; Z87.891 Personal history of nicotine dependence; F41.9 Anxiety disorder, unspecified; I10 Essential (primary) hypertension; Z95.5 Presence of coronary angioplasty implant and graft; E78.5 Hyperlipidemia, unspecified; I73.89 Other specified peripheral vascular diseases; Z99.81 Dependence on supplemental oxygen; Z95.1 Presence of aortocoronary bypass graft; Z79.01 Long term (current) use of anticoagulants; Z86.711 Personal history of pulmonary embolism
CPT/HCPCS: 11042; 11043; 11044

== ENCOUNTER 2025-01-18 15:15 | Outpatient (RCR) | payer MEDICARE, BC, SELFPAY ==
[2025-01-11 14:45] VITALS: BP 114/62; PULSE 74; RESP 16; TEMP 35.9
--- NOTE | 2025-01-12 09:41 | WC ---
PHOTO-LEFT ANKLE 01/11/25
--- NOTE | 2025-01-12 09:44 | WC ---
PHOTO-LEFT FOOT 01/11/25
--- NOTE | 2025-01-13 23:54 | PCM.WC.PN ---
History of Present Illness Date of Service: 01/11/25 Chief Complaint: Left medial ankle and left foot ulcers History of Wound: This is an 84-year-old male with a left medial ankle ulcer that had been seeing [employer] Tender, Dr. Drew, at the [facility]. The patient has a significant history for COPD, and is on home O2. He also has a history of Prostate CA, Squamous carcinoma of left lung, HTN, anxiety and depression, AAA without rupture, CAD, coronary artery stent placement (multiple), CABG x 3, former smoker, PAD, PBH, and pulmonary embolism-on anticoagulants, and hyperlipidemia. He has had arterial studies in the past and had some vascular procedures (by Dr. Freeman) to his left leg. He denies a history of diabetes. His providers are all with [facility]. He has had this left medial ankle ulcer for more than 3 months. He had been placing Santyl covered with [place] SAP. There had not been much improvement to this area, and he was referred to see us by [facility], and that Dr. Drew also suggested he get a second opinion. The patient is seen at this time as a courtesy to his regular Wound Center provider, Dr. Rasta Mazariegos, who is unavailable this week. Progress of Wound: Stable full-thickness wound left foot and ankle Subjective Subjective Patient is 84-year-old male presenting to clinic today follow-up evaluation of full-thickness wound to left ankle and foot. Patient has been doing dressing changes as ordered. He mitts improvement to the ankle wound but still has some deepening of the foot wound. He will be following up with interventional cardiology for consultation at [facility] on 01/23/2025. He denies any pain to the left foot. He denies any new onset of trauma. Denies constitutional symptoms. No other pedal complaints at this time. Objective Data Objective Data Vital Signs: Vital Signs Temp Pulse Resp BP O2 Del Method O2 Flow Rate 96.6 F L 74 16 114/62 Nasal Cannula 4 01/11/25 14:45 01/11/25 14:45 01/11/25 14:45 01/11/25 14:45 01/11/25 14:45 01/11/25 14:45 Oxygen Flow Rate (L/min) 4 Oxygen Delivery Method Nasal Cannula Physical Exam Narrative Vascular: DP and PT pulses are faintly palpable. CFT is brisk. No erythema to the left ankle or first metatarsophalangeal joint left foot. No sign of proximal streaking. Neurological: Light touch intact. Patient does despond painful stimuli. Dermatological: Full-thickness wound to left medial ankle measuring 0.7 x 1.0 x 0.3 cm. Wound base is granular nature. Evidence of full-thickness wound to the dorsal aspect of first metatarsophalangeal joint to left lower extremity. Full-thickness wound measures 0.7 x 1.6 x 0.3 cm. Positive probe to bone. No sign of infection. Excisional debridement down to and including subcutaneous tissue, fascia and muscle to the left medial ankle full-thickness wound with a number 3 mm dermal curette and without incident. Predebridement measurement was 0.6 x 0.9 x 0.2 cm. Postdebridement measurement is 0.7 x 1.0 x 0.3 cm. Excisional debridement down to including subcutaneous tissue, fascia and muscle and bone to left lower extremity first metatarsal phalangeal joint dorsally with a 3 mm dermal curette done without incident. Predebridement measurement was 0.6 x 1.5 x 0.2 cm. Postdebridement measurement is 0.7 x 1.6 x 0.3 cm. Musculoskeletal: No pain on palpation to the left ankle and 1st MPJ full thickness wounds. No pain with calf pressure Debridement Note Debridement Note Debridement Free Text: Excisional debridement down to and including subcutaneous tissue, fascia and muscle to the left medial ankle full-thickness wound with a number 3 mm dermal curette and without incident. Predebridement measurement was 0.6 x 0.9 x 0.2 cm. Postdebridement measurement is 0.7 x 1.0 x 0.3 cm. Excisional debridement down to including subcutaneous tissue, fascia and muscle and bone to left lower extremity first metatarsal phalangeal joint dorsally with a 3 mm dermal curette done without incident. Predebridement measurement was 0.6 x 1.5 x 0.2 cm. Postdebridement measurement is 0.7 x 1.6 x 0.3 cm. Post-Debridement Measurements and Additional Note: Post-Debridement Measurements/Treatment WC - Nurse 1 - General Ulcer Assessment Start: 01/11/25 14:45 Freq: Status: Active Protocol: MILENA Activity Type Activity Date Activity User E-sign Co-sign Detail Recorded Client Recorded Date Recorded By Document 01/11/25 14:45 [id number] 01/11/25 14:56 01/11/25 14:45 - Today's Visit Information Type of service Initial Visit Arrival Mode Wheelchair Patient Identification Verified (Name & Yes ) Patient Requires Transmission-Based No Precautions Safety Precautions Fall Prevention Vital Signs Temperature (97.8 F-99.1 F) 96.6 F L Temperature Source Temporal Pulse Rate (60-100) 74 Pulse Location Monitor Respiratory Rate (12-18) 16 Respiratory rate source Observation Oxygen Delivery Method Nasal Cannula O2 L/MIN (L/min) 4 Blood Pressure (90/60-120/80) 114/62 Blood Pressure Mean (mm Hg) 79 Source Monitor Position Sitting Blood Pressure Location Right Arm History Since Last Visit- (Skip if this is Patient's initial visit) Have you changed medications since your No last visit? Any new allergies or adverse reactions No Had a fall/change in ADL's that may No increase risk of falls Signs or symptoms of abuse and/or No neglect since last visit Have you been in the hospital since your No last visit? Has dressing in place as prescribed Yes Has compression in place as prescribed N/A Has offloadiing in place as prescribed N/A Experienced any changes in pain level or No management Left Footwear Regular Shoe Right Footwear Regular Shoe Pain Scale: 0-10 Numeric Is Patient Pain Free? Yes - Nurse 1 - General Ulcer Measurement Start: 01/11/25 14:45 Freq: Status: Active Protocol: Activity Type Activity Date Activity User E-sign Co-sign Detail Recorded Client Recorded Date Recorded By Document 01/11/25 14:45 [id number] 01/11/25 14:56 01/11/25 14:45 Wound Center Nurse 1 3-left foot -Combined with other wound No -Current Size (cm) - Length 0.7 -Current Size (cm) - Width 1 -Current Size (cm) - Depth 0.2 -Total Square Cm 0.7 -Date of Last Picture (Recall this 01/11/25 field) -Photo Taken Yes -Tunneling No -Undermining/Tunneling No -Circular Undermining No -Exudate Amt Medium -Exudate Type Purulent -Granulation Quality [place],Red -Slough/Fibrin Yes -Structure Exposed None/Limited to Skin Breakdown -Texture (Bell-wound Skin Appearance) Assessed -Moisture (Bell-wound Skin Appearance) Assessed -Color (Bell-wound Skin Appearance) Assessed -Temperature (Bell-wound Skin No Abnormality Appearance) (Pt Warm) -Ulcer Cleansing Soap and Water -Foul Odor after Cleansing No -Anesthetic Used 5% Lidocaine Gel #1- L MEDIAL ANKLE -Combined with other wound No -Current Size (cm) - Length 1 -Current Size (cm) - Width 1 -Current Size (cm) - Depth 0.3 -Total Square Cm 1 -Date of Last Picture (Recall this 01/11/25 field) -Photo Taken Yes -Tunneling No -Undermining/Tunneling No -Circular Undermining No -Exudate Amt Small -Exudate Type Purulent -Wound Margin Thickened & Rolled Under -Granulation Quality [place],Red -Slough/Fibrin Yes -Necrotic Tissue Type Adherent Slough -Structure Exposed None/Limited to Skin Breakdown -Texture (Bell-wound Skin Appearance) Assessed -Moisture (Bell-wound Skin Appearance) Assessed -Color (Bell-wound Skin Appearance) Assessed -Temperature (Bell-wound Skin No Abnormality Appearance) (Pt Warm) -Ulcer Cleansing Soap and Water -Foul Odor after Cleansing No -Anesthetic Used 5% Lidocaine Gel WC - Nurse 2 - General Ulcer CM Notes Start: 01/11/25 14:45 Freq: Status: Active Protocol: Activity Type Activity Date Activity User E-sign Co-sign Detail Recorded Client Recorded Date Recorded By Document 01/11/25 15:10 [email or web address] [id number] 01/11/25 15:15 SONNY 01/11/25 15:10 Wound Center Nurse 2 3-left foot -Time 15:11 -Correct Patient Yes -Correct Side, Site, Position Yes -Correct Procedure Yes -Procedure Performed Yes -Type of Procedure Debridement -Clinical Debridement Bone -Tissue Removed Non-viable tissue -Post Debridement (cm) - Length 0.7 -Post Debridement (cm) - Width 1.6 -Post Debridement (cm) - Depth 0.3 -Total Square (Post) (cm) 1.12 -Area of Debridement (cm) - Length 0.7 -Area of Debridement (cm) - Width 1.6 -Total Square (Area) (cm) 1.12 -Tunneling No -Undermining/Tunneling No -Circular Undermining No -Wound/Ulcer Outcome Not Healed -Ulcer Cleansing Rinsed/ Irrigated with Saline -Foul Odor after Cleansing No -Bioengineered Tissue No -Bleeding Controlled with Pressure -Treatment Response Procedure Tolerated Well -Offloading No -Debridement - Bone, 1st 20sq cm Yes #1- L MEDIAL ANKLE -Time 15:12 -Correct Patient Yes -Correct Side, Site, Position Yes -Correct Procedure Yes -Procedure Performed Yes -Type of Procedure Debridement -Clinical Debridement Muscle / Fascia -Tissue Removed Muscle -Post Debridement (cm) - Length 0.7 -Post Debridement (cm) - Width 1.0 -Post Debridement (cm) - Depth 0.3 -Total Square (Post) (cm) 0.70 -Area of Debridement (cm) - Length 0.7 -Area of Debridement (cm) - Width 1.0 -Total Square (Area) (cm) 0.70 -Tunneling No -Undermining/Tunneling No -Circular Undermining No -Wound/Ulcer Outcome Not Healed -Ulcer Cleansing Rinsed/ Irrigated with Saline -Foul Odor after Cleansing No -Bioengineered Tissue No -Bleeding Controlled with Pressure -Treatment Response Procedure Tolerated Well -Offloading No -Debridement - Muscle / Fascia, 1st Yes 20sq cm Pain Scale: 0-10 Numeric Is Patient Pain Free? Yes - Nurse 3 - General Ulcer D/C NN Start: 01/11/25 14:45 Freq: Status: Active Protocol: Activity Type Activity Date Activity User E-sign Co-sign Detail Recorded Client Recorded Date Recorded By Document 01/11/25 15:37 [id number] 01/11/25 15:39 01/11/25 15:37 Wound Care Center Nurse 3 3-left foot -Primary Dressing Applied AMD Dressing 4x4 -Other Dressing dakins moistened ABD foam -Primary Dressing Covered/Secured with Dry Gauze & Roll Gauze, Secured with Tape -AMD Dressing 4x4 1 #1- L MEDIAL ANKLE -Other Dressing dakins moistened ABD foam -Primary Dressing Covered/Secured with Dry Gauze & Roll Gauze, Secured with Tape Treatment Response Procedure Tolerated Well Pain Scale: 0-10 Numeric Is Patient Pain Free? 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 All findings were discussed with the patient. All questions were answered to the patient's satisfaction. Excisional debridement down to and including subcutaneous tissue, fascia and muscle to the left medial ankle full-thickness wound with a number 3 mm dermal curette and without incident. Predebridement measurement was 0.6 x 0.9 x 0.2 cm. Postdebridement measurement is 0.7 x 1.0 x 0.3 cm. Excisional debridement down to including subcutaneous tissue, fascia and muscle and bone to left lower extremity first metatarsal phalangeal joint dorsally with a 3 mm dermal curette done without incident. Predebridement measurement was 0.6 x 1.5 x 0.2 cm. Postdebridement measurement is 0.7 x 1.6 x 0.3 cm. The left lower extremities are cleaned and patted dry. AMB pad soaked with Dakin's were applied to both full-thickness wound without incident. They were dressed with dry sterile dressing and a light compression wrap was donned. Patient will do daily dressing changes as above. Patient will be following up with [facility] vascular department on 01/23/2025. The patient will follow-up with Dr. Mazariegos in 1 week. (2) Other specified peripheral vascular diseases: CODE(S): I73.89 - Other specified peripheral vascular diseases (3) Non-pressure chronic ulcer of other part of left foot with bone involvement without evidence of necrosis: CODE(S): L97.526 - Non-pressure chronic ulcer of other part of left foot with bone involvement without evidence of necrosis
[2025-01-18 15:06] VITALS: BP 115/70; PULSE 87; RESP 20; TEMP 36.1
--- NOTE | 2025-01-18 15:47 | PN.PCM_ITS ---
History of Present Illness Date of Service: 01/18/25 Chief Complaint: Left medial ankle and left foot ulcers History of Wound: This is an 84-year-old male with a left medial ankle ulcer that had been seeing Line Closer, Dr. Drew, at the [facility]. The patient has a significant history for COPD, and is on home O2. He also has a history of Prostate CA, Squamous carcinoma of left lung, HTN, anxiety and depression, AAA without rupture, CAD, coronary artery stent placement (multiple) , CABG x 3, former smoker, PAD, PBH, and pulmonary embolism-on anticoagulants, and hyperlipidemia. He has had arterial studies in the past and had some vascular procedures (by Dr. Freeman) to his left leg. He denies a history of diabetes. His providers are all with [facility]. He has had this left medial ankle ulcer for more than 3 months. He had been placing Santyl covered with [place] [facility]. There had not been much improvement to this area, and he was referred to see us by [facility], and that Dr. Drew also suggested he get a second opinion. The patient is seen at this time as a courtesy to his regular Wound Center provider, Dr. Rasta Mazariegos, who is unavailable this week. Progress of Wound: Stable full-thickness wound left foot and ankle Subjective Subjective Patient is 84-year-old male presented clinic today follow-up evaluation of left foot and ankle full-thickness wound. He has been compliant with dressing changes. He mitts improvement to the wound but still has some pain to the big toe joint for thickness wound. He is grateful for his care. He will be fo llowing up with interventional cardiology at [facility] on 01/23/2025 for consultation. He denies trauma. Denies constitutional symptoms. No other pedal complaints at this time. Objective Data Objective Data Vital Signs: Vital Signs Temp Pulse Resp BP O2 Del Method O2 Flow Rate 97 F L 87 20 H 115/70 Nasal Cannula 4 01/18/25 15:06 01/18/25 15:06 01/18/25 15:06 01/18/25 15:06 01/11/25 14:45 01/11/25 14:45 Oxygen Flow Rate (L/min) 4 Oxygen Delivery Method Nasal Cannula Physical Exam Narrative Vascular: DP and PT pulses are faintly palpable. CFT is brisk. No erythema to the left ankle or first metatarsophalangeal joint left foot. No sign of proximal streaking. Neurological: Light touch intact. Patient does despond painful stimuli. Dermatological: Full-thickness wound to left medial ankle measuring 0.8 x 0.9 x 0.3 cm. Wound base is granular nature. Evidence of full-thickness wound to the dorsal aspect of first metatarsophalangeal joint to left lower extremity. Full- thickness wound measures 0.7 x 1.6 x 0.3 cm. Positive probe to bone. No sign of infection. Excisional debridement down to and including subcutaneous tissue, fascia and muscle to the left medial ankle full-thickness wound with a number 3 mm dermal curette and without incident. Predebridement measurement was 0.7 x 0.8 x 0.2 cm. Postdebridement measurement is 0.8 x 0.9 x 0.3 cm. Excisional debridement down to including subcutaneous tissue, fascia and muscle and bone to left lower extremity first metatarsal phalangeal joint dorsally with a 3 mm dermal curette done without incident. Predebridement measurement was 0.6 x 1.6 x 0.2 cm. Postdebridement measurement is 0.7 x 1.6 x 0.3 cm. Musculoskeletal: No pain on palpation to the left ankle and 1st MPJ full thickness wounds. No pain with calf pressure Debridement Note Debridement Note Debridement Free Text: Excisional debridement down to and including subcutaneous tissue, fascia and muscle to the left medial ankle full-thickness wound with a number 3 mm dermal curette and without incident. Predebridement measurement was 0.7 x 0.8 x 0.2 cm. Postdebridement measurement is 0.8 x 0.9 x 0.3 cm. Excisional debridement down to including subcutaneous tissue, fascia and muscle and bone to left lower extremity first metatarsal phalangeal joint dorsally with a 3 mm dermal curette done without incident. Predebridement measurement was 0.6 x 1.6 x 0.2 cm. Postdebridement measurement is 0.7 x 1.6 x 0.3 cm. Post-Debridement Measurements and Additional Note: Post-Debridement Measurements/Treatment WC - Nurse 1 - General Ulcer Assessment Start: 01/11/25 14:45 Freq: Status: Active Protocol: [email or web address].LOWEXT Activity Type Activity Date Activity User E-sign Co-sign Detail Recorded Client Recorded Date Recorded By Document 01/11/25 14:45 TS [id number] 01/11/25 14:56 TS Document 01/18/25 15:06 TS [id number] 01/18/25 15:13 TS Edit Result 01/18/25 15:06 TS (1) [id number] 01/18/25 15:16 TS (1) Pulse Rate (60-100) => 87 Blood Pressure (90/60-120/80) => 115/70 Blood Pressure Mean (mm Hg) => 85 Source => Monitor Position => Sitting Blood Pressure Location => Right Arm 01/11/25 01/18/25 14:45 15:06 - Today's Visit Information Type of service Initial Visit Follow-up Visit (Physician/CLOTH FINISHER ) Arrival Mode Wheelchair Wheelchair Patient Identification Verified (Name & Yes ) Patient Requires Transmission-Based No No Precautions Safety Precautions Fall Prevention Fall Prevention Vital Signs Temperature (97.8 F-99.1 F) 96.6 F L 97 F L Temperature Source Temporal Temporal Pulse Rate (60-100) 74 87 Pulse Location Monitor Monitor Respiratory Rate (12-18) 16 20 H Respiratory rate source Observation Observation Oxygen Delivery Method Nasal Cannula O2 L/MIN (L/min) 4 Blood Pressure (90/60-120/80) 114/62 115/70 Blood Pressure Mean (mm Hg) 79 85 Source Monitor Monitor Position Sitting Sitting Blood Pressure Location Right Arm Right Arm History Since Last Visit- (Skip if this is Patient's initial visit) Have you changed medications since your No No last visit? Any new allergies or adverse reactions No No Had a fall/change in ADL's that may No No increase risk of falls Signs or symptoms of abuse and/or No No neglect since last visit Have you been in the hospital since your No No last visit? Has dressing in place as prescribed Yes Yes Has compression in place as prescribed N/A N/A Has offloadiing in place as prescribed N/A N/A Experienced any changes in pain level or No No management Left Footwear Regular Shoe Regular Shoe Right Footwear Regular Shoe Regular Shoe Pain Scale: 0-10 Numeric Is Patient Pain Free? Yes Yes - Nurse 1 - General Ulcer Measurement Start: 01/11/25 14:45 Freq: Status: Active Protocol: Activity Type Activity Date Activity User E-sign Co-sign Detail Recorded Client Recorded Date Recorded By Document 01/11/25 14:45 TS [id number] 01/11/25 14:56 TS Document 01/18/25 15:06 TS [id number] 01/18/25 15:13 TS 01/11/25 01/18/25 14:45 15:06 Wound Center Nurse 1 3-left foot -Combined with other wound No No -Current Size (cm) - Length 0.7 1 -Current Size (cm) - Width 1 1 -Current Size (cm) - Depth 0.2 0.2 -Total Square Cm 0.7 1 -Date of Last Picture (Recall this 01/11/25 01/18/25 field) -Photo Taken Yes Yes -Tunneling No No -Undermining/Tunneling No No -Circular Undermining No No -Exudate Amt Medium Small -Exudate Type Purulent Serosanguineous -Wound Margin Thickened & Rolled Under -Granulation Amt Medium (34-66%) -Granulation Quality Purvis,Red Purvis,Red -Slough/Fibrin Yes -Necrotic Tissue Type Adherent Slough -Structure Exposed None/Limited to Skin Breakdown -Texture (Bell-wound Skin Appearance) Assessed Assessed -Moisture (Bell-wound Skin Appearance) Assessed Assessed -Color (Bell-wound Skin Appearance) Assessed Assessed -Temperature (Bell-wound Skin No Abnormality No Abnormality Appearance) (Pt Warm) (Pt Warm) -Ulcer Cleansing Soap and Water Soap and Water -Foul Odor after Cleansing No No -Anesthetic Used 5% Lidocaine 5% Lidocaine Gel Gel #1- L MEDIAL ANKLE -Combined with other wound No No -Current Size (cm) - Length 1 1 -Current Size (cm) - Width 1 1 -Current Size (cm) - Depth 0.3 0.2 -Total Square Cm 1 1 -Date of Last Picture (Recall this 01/11/25 01/18/25 field) -Photo Taken Yes Yes -Tunneling No No -Undermining/Tunneling No No -Circular Undermining No No -Exudate Amt Small Small -Exudate Type Purulent Serosanguineous -Wound Margin Thickened & Distinct, Rolled Under Outline Attached -Granulation Amt Medium (34-66%) -Granulation Quality Purvis,Red Purvis,Red -Slough/Fibrin Yes -Necrosis Amt Medium (34-66%) -Necrotic Tissue Type Adherent Slough Adherent Slough -Structure Exposed None/Limited to Skin Breakdown -Texture (Bell-wound Skin Appearance) Assessed Assessed -Moisture (Bell-wound Skin Appearance) Assessed Assessed -Color (Bell-wound Skin Appearance) Assessed Assessed -Temperature (Bell-wound Skin No Abnormality No Abnormality Appearance) (Pt Warm) (Pt Warm) -Ulcer Cleansing Soap and Water Soap and Water -Foul Odor after Cleansing No No -Anesthetic Used 5% Lidocaine 5% Lidocaine Gel Gel WC - Nurse 2 - General Ulcer CM Notes Start: 01/11/25 14:45 Freq: Status: Active Protocol: Activity Type Activity Date Activity User E-sign Co-sign Detail Recorded Client Recorded Date Recorded By Document 01/11/25 15:10 [id number] 01/11/25 15:15 Document 01/18/25 15:27 [id number] 01/18/25 15:33 01/11/25 01/18/25 15:10 15:27 Wound Center Nurse 2 3-left foot -Time 15:11 15:28 -Correct Patient Yes Yes -Correct Side, Site, Position Yes Yes -Correct Procedure Yes Yes -Procedure Performed Yes Yes -Type of Procedure Debridement Debridement -Clinical Debridement Bone Bone -Tissue Removed Non-viable Non-viable tissue tissue -Post Debridement (cm) - Length 0.7 0.7 -Post Debridement (cm) - Width 1.6 1.6 -Post Debridement (cm) - Depth 0.3 0.3 -Total Square (Post) (cm) 1.12 1.12 -Area of Debridement (cm) - Length 0.7 0.7 -Area of Debridement (cm) - Width 1.6 1.6 -Total Square (Area) (cm) 1.12 1.12 -Tunneling No No -Undermining/Tunneling No No -Circular Undermining No No -Wound/Ulcer Outcome Not Healed Not Healed -Ulcer Cleansing Rinsed/ Rinsed/ Irrigated with Irrigated with Saline Saline -Foul Odor after Cleansing No No -Bioengineered Tissue No No -Bleeding Controlled with Pressure Pressure -Treatment Response Procedure Procedure Tolerated Well Tolerated Well -Offloading No No -Debridement - Bone, 1st 20sq cm Yes Yes #1- L MEDIAL ANKLE -Time 15:12 15:30 -Correct Patient Yes Yes -Correct Side, Site, Position Yes Yes -Correct Procedure Yes Yes -Procedure Performed Yes Yes -Type of Procedure Debridement Debridement -Clinical Debridement Muscle / Fascia Muscle / Fascia -Tissue Removed Muscle Muscle -Post Debridement (cm) - Length 0.7 0.8 -Post Debridement (cm) - Width 1.0 0.9 -Post Debridement (cm) - Depth 0.3 0.3 -Total Square (Post) (cm) 0.70 0.72 -Area of Debridement (cm) - Length 0.7 0.8 -Area of Debridement (cm) - Width 1.0 0.9 -Total Square (Area) (cm) 0.70 0.72 -Tunneling No No -Undermining/Tunneling No No -Circular Undermining No No -Wound/Ulcer Outcome Not Healed Not Healed -Ulcer Cleansing Rinsed/ Rinsed/ Irrigated with Irrigated with Saline Saline -Foul Odor after Cleansing No No -Bioengineered Tissue No No -Bleeding Controlled with Pressure Pressure -Treatment Response Procedure Procedure Tolerated Well Tolerated Well -Offloading No No -Debridement - Muscle / Fascia, 1st Yes Yes 20sq cm Pain Scale: 0-10 Numeric Is Patient Pain Free? Yes Yes - Nurse 3 - General Ulcer D/C NN Start: 01/11/25 14:45 Freq: Status: Active Protocol: Activity Type Activity Date Activity User E-sign Co-sign Detail Recorded Client Recorded Date Recorded By Document 01/11/25 15:37 RB [id number] 01/11/25 15:39 RB Document 01/18/25 15:41 TS [id number] 01/18/25 15:43 TS 01/11/25 01/18/25 15:37 15:41 Wound Care Center Nurse 3 3-left foot -Primary Dressing Applied AMD Dressing AMD Dressing 4x4 4x4,Hysept -Other Dressing dakins moistened ABD foam -Primary Dressing Covered/Secured with Dry Gauze & Dry Gauze, Roll Gauze, Secured with Secured with Tape Tape -AMD Dressing 4x4 1 1 -Hysept 0 #1- L MEDIAL ANKLE -Primary Dressing Applied AMD Dressing 4x4,Hysept -Other Dressing dakins moistened ABD foam -Primary Dressing Covered/Secured with Dry Gauze & Dry Gauze, Roll Gauze, Secured with Secured with Tape Tape -AMD Dressing 4x4 0 -Hysept 0 Treatment Response Procedure Procedure Tolerated Well Tolerated Well Pain Scale: 0-10 Numeric Is Patient Pain Free? 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 All findings were discussed with the patient. All questions were answered to the patient's satisfaction. Excisional debridement down to and including subcutaneous tissue, fascia and muscle to the left medial ankle full-thickness wound with a number 3 mm dermal c urette and without incident. Predebridement measurement was 0.7 x 0.8 x 0.2 cm. Postdebridement measurement is 0.8 x 0.9 x 0.3 cm. Excisional debridement down to including subcutaneous tissue, fascia and muscle and bone to left lower extremity first metatarsal phalangeal joint dorsally with a 3 mm dermal curette done without incident. Predebridement measurement was 0.6 x 1.6 x 0.2 cm. Postdebridement measurement is 0.7 x 1.6 x 0.3 cm. The left lower extremities are cleaned and patted dry. AMB pad soaked with Dakin's were applied to both full-thickness wound without incident. They were dressed with dry sterile dressing and a light compression wrap was donned. Patient will do daily dressing changes as above. Patient will be following up with [facility] vascular department on 01/01. The patient will follow-up with Dr. Mazariegos in 2 week. (2) Other specified peripheral vascular diseases: CODE(S): I73.89 - Other specified peripheral vascular diseases (3) Non-pressure chronic ulcer of other part of left foot with bone involvement without evidence of necrosis: CODE(S): L97.526 - Non-pressure chronic ulcer of other part of left foot with bone involvement without evidence of necrosis
--- NOTE | 2025-01-19 09:15 | WC ---
PHOTO-LEFT FOOT 01/18/25
--- NOTE | 2025-01-19 09:17 | WC ---
PHOTO-LEFT FOOT 01/18/25
--- NOTE | 2025-01-19 09:18 | WC ---
PHOTO-LEFT MED ANKLE 01/18/25
== END 2025-01-29 23:59 | disposition home or self-care (01) ==
LOC: WC 15:15
PROVIDERS: PCP Family Medicine; Referring Provider Podiatrist Foot & Ankle Surgery; Visit Provider Podiatrist Foot & Ankle Surgery
DX: L97.325 Non-pressure chronic ulcer of left ankle with muscle involvement without evidence of necrosis (principal); L97.526 Non-pressure chronic ulcer of other part of left foot with bone involvement without evidence of necrosis; J44.9 Chronic obstructive pulmonary disease, unspecified; I25.10 Atherosclerotic heart disease of native coronary artery without angina pectoris; I10 Essential (primary) hypertension; E78.5 Hyperlipidemia, unspecified; Z87.891 Personal history of nicotine dependence; Z95.5 Presence of coronary angioplasty implant and graft; F41.9 Anxiety disorder, unspecified; Z99.81 Dependence on supplemental oxygen; Z95.1 Presence of aortocoronary bypass graft; Z86.711 Personal history of pulmonary embolism; I73.89 Other specified peripheral vascular diseases
CPT/HCPCS: 11043; 11044